=== PATIENT | female | born 1945 | race Caucasian/White ===

== ENCOUNTER 2016-01-16 09:34 | Outpatient (RCR) | payer MEDICARE ==
[~2016-01-16 09:34] MED LIST: ACET325T49 PO; ACHD5005 PO; ACID1TAB PO; ACYC400T21 PO; ACYC800T PO; ADV1DS1 IH; ALB0.5V INH; ALBU0.632 IH; AMIT100T2; AMIT100T2 PO; AMIT150T PO; AMT50T; ASP325TEC PO; ASP81CT PO; ASPI-892 PO; ASPI325T4 PO; AZIT250T PO; AZIT250T5 PO; BMT1T; BSP10T PO; BSP5T PO; BUDE10.22 IH; BUSP5TAB59 PO; CARV3.12 PO; CARV3.122 PO; CEFU250T11 PO; CEPH500C PO; CETI10TA17; CETI10TA17 PO; CHOL10003 PO; CHOL4PAC PO; CIPR-225 PO; CIPR-226 PO; CIPR500T4 PO; CIPR500T78 PO; CPR250T PO; CPR500T PO; CTRZ10T; CYCL10TA9 PO; D50KC PO; DEMEROL; DEXL60CA PO; DIAZ10TA PO; DIAZ10TA3 PO; DIAZ5TAB3 PO; DIAZ5TAB49; DNPZ10T PO; DONE10TA41 PO; DONE10TA48 PO; ENLP5T PO; FESO8TAB PO; FLC100T1 PO; FLUT1DIS27 INH; FLUT1DIS28 IH; GAPAPENTIN; GUAI600T43 PO; HYDR-91 PO; HYDR1TAB PO; INDERAL; IPRA3AMP INH; KCL20TCR; KCL20TCR PO; L.AC1CAP6 PO; LEVO500T69 PO; LEVO500T80 PO; LEVO750T39 PO; LYRICA; MACRODANTIN PO; MAGN400T6 PO; MECL25TA56 PO; MEPERIDINE; METH4TAB PO; METH4TAB10 PO; METO-354 PO; METR500T PO; MILN50TA PO; MTF500T; NAPR-243 PO; NEBU1KIT3 MC; NF-ZONI100; NITR-65 PO; NITR100C PO; NYST1000 PO; OMEP40CA36 PO; ONDA4TAB11 PO; ONDA8TAB9 PO; ORPH100T PO; OXYC1TAB12; OXYC1TAB19; OXYC1TAB95 PO; OXYCODONE; PANT40SU PO; PHEN100T17 PO; PHEN200T27 PO; PRAV10TA23 PO; PRD20T PO; PRED20TA PO; PREG150C PO; PREG50C; PREG50CA2 PO; PREG75CA PO; PRM25T PO; PROMETHAZINE; PROP120C3 PO; PROP40TA5 PO; PROP60TA16; PROP60TA16 PO; ROPI1TAB; ROPI1TAB PO; ROPI2TAB4 PO; RPN.25T; SCOP1PAT TD; SCR1T1 PO; SITA100T12 PO; SRTR100T; SUCR1TAB23 PO; SUCR1TAB36 PO; TRAM50TA2 PO; TRIM100T7 PO; VIT1TABL5 PO; Z-pak PO; ZONEGRAM; ZONI100C11; [UNRECOGNIZED DRUG - OTHER]
--- OUTSIDE RECORDS SUMMARY | 2016-01-16 09:39 | XMS REPORT | Continuity of Care Document ---
Author Author [facility] Organization [facility] Address Unknown Phone Unavailable Care Team Providers Care Upholstery Instructor Name Role Phone NANNETTE REID DO PCP Insurance Providers Payer Name Policy Number Subscriber Name Relationship [employer] Gold Choice [id number] Diana Gregory 18 Self / Same As Patient [facility] [id number] Diana Gregory 18 Self / Same As Patient Advance Directives Directive Response Recorded Date/Time Advance Directives Yes 02/02/14 7:40pm Health Care Power of Library Sales Consultant No 02/02/14 7:40pm Organ Donor Yes 02/02/14 7:40pm Resuscitation Status Full Code 02/02/14 7:40pm Chief Complaint and Reason for Visit Chief Complaint CHEST PAIN Reason for Visit Chest pain Problems Medical Problems Problem Onset Date Status Bronchitis Unknown Active Bronchitis Unknown Active Urinary tract infection Unknown Active Chest pain Unknown Active Medications Medication Dose Route Sig Days/Qty Instructions Order Date Discontinued Date Status [Inderal] 10/28/06 02/09/09 Discontinued [Lyrica] 10/28/06 12/30/07 Discontinued Cetirizine HCl 10/28/06 12/30/07 Discontinued Sertraline HCl 10/28/06 12/30/07 Discontinued Bumetanide 10/28/06 12/30/07 Discontinued Potassium Chloride 10/28/06 12/30/07 Discontinued Amitriptyline HCl 10/28/06 12/30/07 Discontinued [Zonegram] 10/28/06 12/30/07 Discontinued [Oxycodone] 10/28/06 12/30/07 Discontinued [Demerol/Phenergan] 10/28/06 12/30/07 Discontinued Metformin HCl 12/30/07 02/09/09 Discontinued Ergocalciferol 1 Tab PO WEEKLY 12/30/07 09/27/10 Discontinued Ropinirole HCl 12/30/07 02/09/09 Discontinued Diazepam 12/30/07 05/02/09 Discontinued Oxycodone/Acetaminophen 12/30/07 02/09/09 Discontinued [Demerol 100MG] 12/30/07 03/07/10 Discontinued Amitriptyline HCl 12/30/07 02/09/09 Discontinued Zonisamide 12/30/07 02/09/09 Discontinued Sertraline HCl 12/30/07 02/09/09 Discontinued Pregabalin 12/30/07 02/09/09 Discontinued Cetirizine HCl (Zyrtec) 08/14/08 02/09/09 Discontinued Propranolol HCl 60 Mg PO TWICE A DAY 08/14/08 03/24/10 Discontinued Propranolol HCl 08/14/08 02/09/09 Discontinued Zonisamide 08/14/08 05/02/09 Discontinued Amitriptyline HCl 08/14/08 09/16/09 Discontinued Ropinirole HCl 08/14/08 02/09/09 Discontinued Oxycodone Hcl/Acetaminophen 08/14/08 05/02/09 Discontinued Sertraline HCl 08/14/08 02/09/09 Discontinued Meclizine HCl 2 Each PO FOUR TIMES DAILY 30 Qty FOR DIZZINESS 08/14/08 02/09/09 Discontinued Scopolamine HCl 1 Patch TD Q 72 HOURS 3 Qty 08/14/08 02/09/09 Discontinued Oxycodone/Acetaminophen 1 Tab PO FOUR TIMES DAILY PRN 02/09/0904/08 Discontinued Milnacipran Hcl 50 Mg PO TWICE A DAY 05/02/09 03/07/10 Discontinued Ropinirole HCl 2 Mg PO BEDTIME 05/02/09 02/03/14 Discontinued Amitriptyline HCl 150 Mg PO BEDTIME 05/02/09 03/07/10 Discontinued Promethazine HCl 25 Mg PO EVERY 4HRS PRN 05/02/09 09/27/10 Discontinued Cetirizine HCl (Zyrtec) 06/15/09 09/16/09 Discontinued Ciprofloxacin 1 Tab PO TWICE A DAY 7 Days 09/17/09 03/07/10 Discontinued Naproxen 1 Each PO TID PRN 30 Qty FOR PAIN 09/25/09 03/07/10 Discontinued Orphenadrine Citrate 100 Mg PO TWICE A DAY 30 Qty 09/25/09 03/07/10 Discontinued Pantoprazole Sodium 40 Mg PO DAILY 03/24/10 03/24/10 Discontinued Carvedilol 3.125 Mg PO GIVE EVERY 12 HRS ON SCHEDULE 03/24/10 Discontinued Ciprofloxacin 500 Mg PO Q12 8TABS, (4 MORE DAYS) 03/24/10 07/03/10 Discontinued Enalapril Maleate 5 Mg PO TWICE A DAY 03/24/10 06/17/11 Discontinued Magnesium Oxide 400 Mg PO TWICE A DAY 03/24/10 04/06/12 Discontinued Pantoprazole Sodium 40 Mg PO DAILY 03/24/10 07/03/10 Discontinued Amitriptyline HCl (Elavil) 50 Mg PO BEDTIME 07/03/10 04/06/12 Discontinued Propranolol HCl 60 Mg PO TWICE A DAY 07/03/10 02/03/14 Discontinued Fesoterodine Fumarate 1 Tab PO DAILY 07/03/10 09/27/10 Discontinued Cholecalciferol 1,000 Unit PO DAILY 09/27/10 06/17/11 Discontinued Donepezil Hcl 10 Mg PO BEDTIME 09/27/10 10/06/10 Discontinued Acetaminophen/Hydrocodone Bitart 1 - 2 Each PO Q4HR PRN 40 Qty 10/06/10 Discontinued Carvedilol (Coreg) 1 Each PO TWICE A DAY 10/06/10 10/06/10 Discontinued Omeprazole 40 Mg PO TWICE A DAY 10/06/10 04/06/12 Discontinued Aspirin 81 Mg PO Every 48 Hours 10/06/10 12/14/13 Discontinued Donepezil Hcl 10 Mg PO BEDTIME 10/06/10 12/05/13 Discontinued Salmeterol Xinafoate/Fluticasone 1 Puff INH TWICE A DAY 10/25/1005/14 Discontinued Buspirone HCl 10 Mg PO THREE TIMES A DAY 10/25/10 07/05/12 Discontinued Trimethoprim 100 Mg PO BEDTIME 10/25/10 04/08/12 Discontinued Ciprofloxacin 1 Tab PO TWICE A DAY 3 Days 10/25/10 11/25/10 Discontinued Pravastatin Sodium 10 Mg PO BEDTIME 01/05/11 06/17/11 Discontinued Nitrofurantoin Macrocrystals 1 Each PO TWICE A DAY 20 Qty 01/05/11 Discontinued Metronidazole 1 Each PO THREE TIMES A DAY 01/14/11 03/09/11 Discontinued Acyclovir 400 Mg PO THREE TIMES A DAY 2 Days 02/21/11 03/03/11 Discontinued Fluconazole 100 Mg PO DAILY 5 Days 02/21/11 03/03/11 Discontinued Sucralfate 1 Gm PO BEFORE MEALS 02/21/11 06/17/11 Discontinued Potassium Chloride 20 Meq PO DAILY 02/21/11 06/17/11 Discontinued Acidophilus 2 Tab.chew PO TWICE A DAY 02/21/11 06/17/11 Discontinued Metoclopramide HCl 1 Each PO BEFORE MEALS AND AT BEDTIME 02/21/11 Discontinued Dexlansoprazole 60 Mg PO Q24 HR 02/21/11 06/17/11 Discontinued Ondansetron 4 Mg PO EVERY 6 HOURS PRN 10 Qty 03/03/11 03/09/11 Discontinued Nitrofurantoin Macrocrystal 100 Mg PO TWICE A DAY 7 Days 03/03/1108/13 Discontinued [Macrodantin 100MG] 1 PO TWICE A DAY 7 Days 03/14/11 06/17/11 Discontinued Acetaminophen/Hydrocodone Bitart 1 - 2 Ea PO Q4HR PRN 20 Qty NEEDED FOR PAIN 03/14/11 06/17/11 Discontinued [Dohepezl ] 05/21/11 06/17/11 Discontinued [Gapapentin ] 05/21/11 06/17/11 Discontinued Ciprofloxacin HCl 1 Tab PO TWICE A DAY 14 Qty 05/21/11 06/17/11 Discontinued Ciprofloxacin HCl 250 Mg PO TWICE A DAY 06/19/11 11/07/11 Discontinued Metronidazole 500 Mg PO THREE TIMES A DAY 06/19/11 11/07/11 Discontinued Ciprofloxacin 1 Tab PO TWICE A DAY 5 Days 08/20/11 11/07/11 Discontinued Budesonide/Formoterol Fumarate 2 Puff IH TWICE A DAY 12/11/11 Discontinued Promethazine HCl 1 Tab PO FOUR TIMES DAILY PRN 20 Qty 12/23/11 Discontinued Promethazine HCl 25 Mg PO FOUR TIMES DAILY PRN 04/06/12 07/05/12 Discontinued Acetaminophen/Hydrocodone Bitart 1 Each PO FOUR TIMES DAILY PRN 04/0807/05/12 Discontinued Buspirone HCl 5 Mg PO THREE TIMES A DAY 90 Qty 07/05/12 02/03/14 Discontinued Diazepam (Valium) 1 Each PO THREE TIMES A DAY 07/05/12 12/05/13 Discontinued Omeprazole 40 Mg PO 0900, 1700 07/05/12 Active Albuterol Sulfate 0.83 Mg IH EVERY 4HRS PRN 07/05/12 02/03/14 Discontinued Cholestyramine/Aspartame 4 G PO DAILY 07/05/12 12/05/13 Discontinued Levofloxacin 1 Each PO DAILY 7 Qty 11/05/12 12/05/13 Discontinued Phenazopyridine HCl 1 Each PO TID PRN 10 Qty 11/05/12 12/05/13 Discontinued Ondansetron HCl 8 Mg PO EVERY 6 HOURS PRN 10 Qty 11/05/12 12/05/13 Discontinued Salmeterol Xinafoate/Fluticasone Unknown Dose IH DAILY 12/05/13 Discontinued Vit B12/Lm-Folate Ca/Vit B6/B2 1 Tab PO 12/05/13 12/30/13 Discontinued Cetirizine HCl (Zyrtec) 10 Mg PO TWICE A DAY PRN ALLERGIES 12/05/13 Active Levofloxacin 1 Each PO DAILY 5 Qty 12/05/13 12/14/13 Discontinued Pregabalin 75 Mg PO DAILY @ 1700 12/30/13 Active Nitrofurantoin Macrocrystals 1 Each PO TWICE A DAY 30 Qty 12/31/1307/15 Discontinued Phenazopyridine HCl 1 Each PO THREE TIMES A DAY PRN BLADDER DISCOMFORT 15 Qty 12/31/13 02/03/14 Discontinued Ciprofloxacin 500 Mg PO TWICE A DAY 01/06/14 02/03/14 Discontinued Buspirone HCl 5 Mg PO 0900, 1730, 0000 02/03/14 Active Albuterol 2.5 Mg INH EVERY 4HRS PRN SHORTNESS OF BREATH 02/03/14 Active Ropinirole Hcl 2 Mg PO DAILY @ 1200 02/03/14 Active Propranolol HCl 40 Mg PO 0900, 1700 02/03/14 Active Aspirin 81 Mg PO DAILY 02/03/14 Active Cefuroxime Axetil (Ceftin) 250 Mg PO TWICE A DAY 14 Qty 02/03/14 Active Social History Social History Problem Response Recorded Date/Time Alcohol Use Denies Use 02/02/2014 7:40pm Recreational Drug Use No 02/02/2014 7:40pm Recent Foreign Travel No 12/05/2013 6:09pm Recent Infectious Disease Exposure No 12/05/2013 6:09pm Hospitalization with Isolation Denies 12/05/2013 6:09pm Sexually Transmitted Disease No 02/02/2014 7:40pm Smoking Status Never a Smoker 02/02/2014 7:40pm Do you dip or chew tobacco? No 02/02/2014 7:40pm Query Response Start Date Stop Date Smoking Status Never a Smoker Hospital Discharge Instructions Patient Instructions Physician Instructions New, Converted or Re-Newed RX: Call to Patients Pharmacy Plan of Care/Instructions/FU: Fwup in 1week Activity as Tolerated: Yes Discharge Diet: Low Sodium Diet Plan of Care Discharge Date 02/03/14 8:50pm Disposition 01 HOME, SELF-CARE Instructions/Education Provided Urinary Tract Infection in Women (DC) Gastroesophageal Reflux Disease (GEN) Forms Provided PDI Medical Prescriptions See Medications Section Referrals (Unspecified) Reason(s) for Referral: follow up with dr. shah on january 31 at 3:30 ULI CERDA MD FACP FACC CCDS (Unspecified) 1 Week Address: [address] [place] [address] [address] [place] [address] Reason(s) for Referral: Please call the office to make a follow up appointment next week with Dr. Cerda. If you have any questions/concerns call the office. NANNETTE REID DO (Unspecified) 1 Week Address: [address] [place] [address] Reason(s) for Referral: Please call the office to make a follow up appointment with Dr. Reid for 1 week. Call the office if you have questions/concerns. Functional Status Query Response Date Recorded Patient Orientation Person Place Time February 03, 2014 10:35pm Comprehension Ability Understands Concepts February 02, 2014 7:40pm Allergies, Adverse Reactions, Alerts Allergen Type Severity Reaction Status Last Updated Penicillins ([id number]) Allergy Unknown Active 10/28/06 Sulfa (Sulfonamide Antibiotics) ([id number]) Allergy Unknown Active 27/09 Aspirin Adverse Reaction Mild ASPIRIN SENSITIVE Active 08/14/08 sumatriptan Adverse Reaction Mild PALPITATIONS Active 08/14/08 Hydromorphone Allergy Mild STRONG RASH Active 10/28/06 Immunizations Name Given Type Date of Pneumonia Vaccine 12/03/11 Historical Date of Influenza Vaccine 01/02/14 Historical influenza, split (incl. purified surface antigen) 01/07/14 Administered Vital Signs Acute Vital Signs Vital Response Date/Time Temperature (Fahrenheit) 97.9 degrees F (97.6 - 99.5) Temperature (Calculated Celsius) 36.53250 degrees C (36.4 - 37.5) Temperature Source Temporal Pulse Rate (adult) 68 bpm (60 - 90) Respiratory Rate 20 bpm (12 - 24) O2 Sat by Pulse Oximetry 97 % (88 - 100) Blood Pressure 142/81 mm Hg Pain Pain Intensity 0 Height (Feet) 5 feet Height (Inches) 65.00 inches Height (Calculated Centimeters) 165.164070 cm Weight (Pounds) 205 pounds Weight (Ounces) 9.0 oz Weight (Calculated Grams) 19419.437 gm Weight (Calculated Kilograms) 92.378601 kilograms Calculated BMI 34.28 Results Laboratory Results Test Name Result Units Flags Reference Collection Date/Time Result Date/ Time Comments White Blood Count 8.0 10^3/uL 4.3-11.0 02/03/2014 5:18am 02/03/2014 5: 30am Red Blood Count 4.41 10^6/uL 4.35-5.85 02/03/2014 5:18am 02/03/2014 5: 30am Hemoglobin 13.3 G/DL 11.5-16.0 02/03/2014 5:18am 02/03/2014 5:30am Hematocrit 40 % 35-52 02/03/2014 5:18am 02/03/2014 5:30am Mean Corpuscular Volume 91 FL 80-99 02/03/2014 5:1802/03/2014 5: 30am Mean Corpuscular Hemoglobin 30 PG 25-34 02/03/2014 5:1802/03/2014 5: 30am Mean Corpuscular Hemoglobin Concent 33 G/DL 32-36 02/03/2014 5:1805/2013 5:30am Red Cell Distribution Width 12.9 % 10.0-14.5 02/03/2014 5:182013 5:30am Platelet Count 222 10^3/uL 130-400 02/03/2014 5:1802/03/2014 5:30am Mean Platelet Volume 10.2 FL 7.4-10.4 02/03/2014 5:1802/03/2014 5: 30am Neutrophils (%) (Auto) 58 % 42-75 02/03/2014 5:02/03/2014 5:30am Lymphocytes (%) (Auto) 31 % 12-44 02/03/2014 5:02/03/2014 5:30am Monocytes (%) (Auto) 8 % 0-12 02/03/2014 5:1802/03/2014 5:30am Eosinophils (%) (Auto) 3 % 0-10 02/03/2014 5:02/03/2014 5:30am Basophils (%) (Auto) 1 % 0-10 02/03/2014 5:02/03/2014 5:30am Neutrophils # (Auto) 4.7 X 10^3 1.8-7.8 02/03/2014 5:02/03/2014 5: 30am Lymphocytes # (Auto) 2.5 X 10^3 1.0-4.0 02/03/2014 5:1802/03/2014 5: 30am Monocytes # (Auto) 0.6 X 10^3 0.0-1.0 02/03/2014 5:02/03/2014 5: 30am Eosinophils # (Auto) 0.2 10^3/uL 0.0-0.3 02/03/2014 5:1802/03/2014 5 :30am Basophils # (Auto) 0.1 10^3/uL 0.0-0.1 02/03/2014 5:1802/03/2014 5: 30am Prothrombin Time 11.4 SEC L 12.2-14.7 02/02/2014 6:30pm 02/02/2014 6: 55pm INR Comment 0.8 0.8-1.4 02/02/2014 6:30pm 02/02/2014 6:55pm INTERPRETIVE DATA SUGGESTED THERAPEUTIC RANGE FOR INR'S: VENOUS THROMBOSIS, PULMONARY EMBOLISM, OR PREVENTION OF SYSTEMIC EMBOLISM (EG. IN ATRIAL FIBRILLATION): 2.0 - 3.0 MECHANICAL PROSTHETIC HEART VALVES: 2.5 - 3.5* *NOTE: INR'S UP TO 4.5 MAY BE NECESSARY IN SELECTED GROUPS OF HIGH RISK PATIENTS. [employer] [place] [employer] OF CHEST PHYSICIANS CONSENSUS CONFERENCE ON ANTITHROMBOTIC THERAPY (2000). Activated Partial Thromboplast Time 20 SEC L 24-35 02/02/2014 6:30pm 04/2013 6:55pm Urine Color YELLOW 02/03/2014 5:57pm 02/03/2014 6:26pm Urine Clarity SLIGHTLY CLOUDY 02/03/2014 5:57pm 02/03/2014 6:26pm Urine pH 6 5-9 02/03/2014 5:57pm 02/03/2014 6:26pm Urine Specific [place] 1.015 * 1.016-1.022 02/03/2014 5:57pm 2013 6:26pm Urine Protein NEGATIVE NEGATIVE 02/03/2014 5:57pm 02/03/2014 6:26pm Urine Glucose (UA) NEGATIVE NEGATIVE 02/03/2014 5:57pm 02/03/2014 6: 26pm Urine RBC (Auto) NEGATIVE NEGATIVE 02/03/2014 5:57pm 02/03/2014 6: 26pm Urine Ketones NEGATIVE NEGATIVE 02/03/2014 5:57pm 02/03/2014 6:26pm Urine Nitrite NEGATIVE NEGATIVE 02/03/2014 5:57pm 02/03/2014 6:26pm Urine Bilirubin NEGATIVE NEGATIVE 02/03/2014 5:57pm 02/03/2014 6: 26pm Urine Urobilinogen NORMAL MG/DL NORMAL 02/03/2014 5:57pm 02/03/2014 6: 26pm Urine Leukocyte Esterase 3+ * NEGATIVE 02/03/2014 5:57pm 02/03/2014 6: 26pm Urine RBC NONE /HPF 02/03/2014 5:57pm 02/03/2014 6:26pm Urine WBC 25-50 /HPF * 02/03/2014 5:57pm 02/03/2014 6:26pm Urine Bacteria FEW /HPF * 02/03/2014 5:57pm 02/03/2014 6:26pm Urine Squamous Epithelial Cells 10-25 /HPF * 02/03/2014 5:57pm 2013 6:26pm Urine Crystals NONE /LPF 02/03/2014 5:57pm 02/03/2014 6:26pm Urine Casts NONE /LPF 02/03/2014 5:57pm 02/03/2014 6:26pm Urine Mucus NEGATIVE /LPF 02/03/2014 5:57pm 02/03/2014 6:26pm Urine Culture Indicated YES 02/03/2014 5:57pm 02/03/2014 6:26pm Sodium Level 140 MMOL/L 135-145 02/03/2014 5:18am 02/03/2014 6:16am Potassium Level 3.8 MMOL/L 3.6-5.0 02/03/2014 5:18am 02/03/2014 6:16am Chloride Level 106 MMOL/L 98-107 02/03/2014 5:18am 02/03/2014 6:16am Carbon Dioxide Level 25 MMOL/L 21-32 02/03/2014 5:18am 02/03/2014 6: 16am Blood Urea Nitrogen 18 MG/DL 7-18 02/03/2014 5:18am 02/03/2014 6:16am Creatinine 0.77 MG/DL 0.60-1.30 02/03/2014 5:18am 02/03/2014 6:16am BUN/Creatinine Ratio 23 02/03/2014 5:18am 02/03/2014 6:16am Estimat Glomerular Filtration Rate > 60 02/03/2014 5:18am 2013 6:16am GFR INTERPRETIVE DATA UNITS FOR ESTIMATED GFR (eGFR): mL/min/1.73 M2 REFERENCE RANGE FOR ESTIMATED GFR (eGFR) eGFR NORMAL eGFR >60 MODERATELY DECREASED eGFR 30-59 SEVERLY DECREASED eGFR 15-29 KIDNEY FAILURE <15 (OR DIALYSIS) Glucose Level 129 MG/DL H 70-105 02/03/2014 5:18am 02/03/2014 6:16am Calcium Level 8.9 MG/DL 8.5-10.1 02/03/2014 5:18am 02/03/2014 6:16am Magnesium Level 2.1 MG/DL 1.8-2.4 02/02/2014 6:30pm 02/02/2014 7:00pm Total Bilirubin 0.5 MG/DL 0.1-1.0 02/03/2014 5:18am 02/03/2014 6:16am Alkaline Phosphatase 83 U/L 40-136 02/03/2014 5:18am 02/03/2014 6:16am Aspartate Amino Transf (AST/SGOT) 15 U/L 5-34 02/03/2014 5:18am 2013 6:16am Alanine Aminotransferase (ALT/SGPT) 21 U/L 0-55 02/03/2014 5:18am 02/03 6:16am Troponin I < 0.30 NG/ML <0.30 02/02/2014 6:30pm 02/02/2014 7:08pm Troponin I < 0.30 NG/ML <0.30 02/03/2014 12:33am 02/03/2014 1:11am Myoglobin 39.7 NG/ML 10.0-92.0 02/02/2014 6:30pm 02/02/2014 7:08pm Total Protein 5.6 G/DL L 6.4-8.2 02/03/2014 5:18am 02/03/2014 6:16am Albumin 3.3 G/DL 3.2-4.5 02/03/2014 5:18am 02/03/2014 6:16am Triglycerides Level 169 MG/DL H <150 02/03/2014 5:18am 02/03/2014 5:56am Cholesterol Level 165 MG/DL < 200 02/03/2014 5:18am 02/03/2014 5:56am HDL Cholesterol 35 MG/DL L 40-60 02/03/2014 5:18am 02/03/2014 5:56am LDL Cholesterol Direct 107 MG/DL 1-129 02/03/2014 5:18am 02/03/2014 5: 56am VLDL Cholesterol 34 MG/DL 5-40 02/03/2014 5:18am 02/03/2014 5:56am Procedures Procedure Status Date Provider(s) REPAIR BLADDER DEFECT completed 01/06/14 JUWAN SHAH MD Tracing only of electrocardiogram completed 02/02/14 CHERRIE CHURCH MD Tracing only of electrocardiogram completed 02/02/14 NANNETTE REID DO Tracing only of electrocardiogram completed 02/02/14 NANNETTE REID DO Encounters Encounter Location Date/Time Discharged Inpatient Via [facility] 02/02/14 7:46pm Departed Surgical Day Care Via [facility] 01/06/14 6:09am Recent Diagnosis Chest pain
[2016-01-28] MEDS ORDERED: PHEN-640 PO (19:47)
[2016-01-28] MEDS ORDERED: CIPR-225 PO (19:47)
[2016-01-28] MEDS ORDERED: ONDA4TAB8 PO (19:48)
[2016-03-21] MEDS ORDERED: GABA-488 PO ×2 (17:55)
[2016-03-21] MEDS ORDERED: PIOG30TA26 PO (17:55)
[2016-03-21] MEDS ORDERED: GLIM2TAB PO (17:55)
[2016-03-22] MEDS ORDERED: PRAM1TAB5 PO (08:04)
[2016-03-22] MEDS ORDERED: CYCL10TA9 PO (08:04)
[2016-03-22] MEDS ORDERED: DIPH25TA29 PO (08:04)
[2016-03-25] MEDS ORDERED: IPRA3AMP INH (11:49)
[2016-03-25] MEDS ORDERED: TOLTA4 PO (11:49)
[2016-03-25] MEDS ORDERED: CEFD300C3 PO (11:49)
[2016-04-13] MEDS ORDERED: IPRA3AMP NEB (10:30)
[2016-04-13] MEDS ORDERED: TOLT4CAP13 PO (10:30)
[2016-04-23] MEDS ORDERED: LORA0.5T PO (14:47)
[2016-04-23] MEDS ORDERED: FLUT12AE4 IH (14:47)
[2016-04-23] MEDS ORDERED: BUSP5TAB59 PO (14:47)
[2016-04-23] MEDS ORDERED: PRD20T PO (14:47)
[2016-04-23] MEDS ORDERED: METR500T PO (14:48)
[2016-04-25] MEDS ORDERED: KETO10TA PO (08:47)
[2016-05-16] MEDS ORDERED: HC A30CR RC (13:19)
[2016-05-16] MEDS ORDERED: PANT40TA2 PO (13:19)
== END 2016-04-15 | disposition home or self-care (01) ==
LOC: PULM 09:34
PROVIDERS: ATTEND Nurse Practitioner Family
DX: R06.00 Dyspnea, unspecified (principal); J98.4 Other disorders of lung; G47.34 Idiopathic sleep related nonobstructive alveolar hypoventilation
CPT/HCPCS: 99211

== ENCOUNTER 2016-03-21 13:52 | Inpatient (IN) | payer MEDICARE ==
[~2016-03-21] VITALS: Ht 162.6 cm; Wt 98.0 kg
[~2016-03-21 13:52] MED LIST changes: +ONDA4TAB8 PO; +PHEN-640 PO
--- OUTSIDE RECORDS SUMMARY | 2016-03-21 14:01 | XMS REPORT | Continuity of Care Document ---
Author Author [facility] Organization [facility] Address Unknown Phone Unavailable Care Team Providers Care Yardmaster Name Role Phone NANNETTE REID DO PCP Insurance Providers Payer Name Policy Number Subscriber Name Relationship [employer] Gold Choice [id number] Diana Gregory 19 Self / Same As Patient [facility] [id number] Diana Gregory 19 Self / Same As Patient Advance Directives Directive Response Recorded Date/Time Advance Directives Yes 02/02/14 7:40pm Health Care Power of District Claims Manager No 02/02/14 7:40pm Organ Donor Yes 02/02/14 [...] FACP FACC CCDS (Unspecified) 1 Week Address: [address] [place] [address] [address] [place] [address] Reason(s) for Referral: Please call the office to make a follow up appointment next week with Dr. Cerda. If you have any questions/concerns call the office. NANNETTE REID DO (Unspecified) 1 Week Address: [address] [place] [address] Reason(s) for Referral: Please call the office to make a follow up appointment with Dr. Reid for 1 week. Call the office if you have questions/concerns. Functional Status Query Response Date Recorded Patient Orientation Person Place Time February 03, 2014 10:35pm Comprehension Ability Understands Concepts February 02, 2014 7:40pm Allergies, Adverse Reactions, Alerts Allergen Type Severity Reaction Status Last Updated Penicillins ([id number]) Allergy Unknown Active 10/28/06 Sulfa (Sulfonamide Antibiotics) ([id number]) Allergy Unknown Active 27/09 Aspirin Adverse Reaction [...] F (97.6 - 99.5) Temperature (Calculated Celsius) 36.37939 degrees C (36.4 - 37.5) Temperature Source Temporal Pulse Rate (adult) 68 bpm (60 - 90) Respiratory Rate 20 bpm (12 - 24) O2 Sat by Pulse Oximetry 97 % (88 - 100) Blood Pressure 142/81 mm Hg Pain Pain Intensity 0 Height (Feet) 5 feet Height (Inches) 65.00 inches Height (Calculated Centimeters) 165.824728 cm Weight (Pounds) 205 pounds Weight (Ounces) 9.0 oz Weight (Calculated Grams) 34465.437 gm Weight (Calculated Kilograms) 92.082440 kilograms Calculated BMI 34.28 Results Laboratory Results [...] SELECTED GROUPS OF HIGH RISK PATIENTS. [employer] [place] [employer] OF CHEST PHYSICIANS CONSENSUS CONFERENCE ON ANTITHROMBOTIC THERAPY (2000). Activated Partial Thromboplast Time 20 SEC L 24-35 02/02/2014 6:30pm 04/2013 6:55pm Urine Color YELLOW 02/03/2014 5:57pm 02/03/2014 6:26pm Urine Clarity SLIGHTLY CLOUDY 02/03/2014 5:57pm 02/03/2014 6:26pm Urine pH 6 5-9 02/03/2014 5:57pm 02/03/2014 6:26pm Urine Specific [place] 1.015 * 1.016-1.022 02/03/2014 5:57pm 2013 6:26pm [...] Encounters Encounter Location Date/Time Discharged Inpatient Via [facility] 02/02/14 7:46pm Departed Surgical Day Care Via [facility] 01/06/14 6:09am Recent Diagnosis Chest pain
--- NOTE | 2016-03-21 14:15 | ED General ---
General Chief Complaint: Respiratory Problems Stated Complaint: SOA/FEVER Nursing Triage Note: INCREASING SOA FOR A COUPLE OF WEEKS ET YESTERDAY WAS RUNNING A TEMP OF 101.7 Nursing Sepsis Screen: No Definite Risk Source of Information: Patient Exam Limitations: No Limitations History of Present Illness Time Seen by Provider: 13:57 Initial Comments Here with report of increasing shortness of breath over the last couple of weeks. Reports running a temperature yesterday that is only minimally responding to Tylenol or ibuprofen. Apparently it is working today she is afebrile on arrival. Denies nausea or vomiting but does have intermittent loose stools. Denies dysuria. Does have chest tightness especially lower. Timing/Duration: 1-2 Days Severity: Moderate Associated Systoms: Cough Fever/ChillsNo Shortness of Air Allergies and Home Medications Allergies Coded Allergies: hydromorphone (Verified Allergy, Mild, STRONG RASH, 10/28/06) Penicillins (Verified Allergy, Unknown, 10/28/06) Sulfa (Sulfonamide Antibiotics) (Verified Allergy, Unknown, 10/28/06) aspirin (Unverified Adverse Reaction, Mild, ASPIRIN SENSITIVE, 08/14/08) sumatriptan (Unverified Adverse Reaction, Mild, PALPITATIONS, 08/14/08) Home Medications Acetaminophen 325 Mg Tablet 650 MG PO Q6H PRN PRN FEVER (Reported) Buspirone HCl 5 Mg Tablet 5 MG PO TID (Reported) Cetirizine HCl 10 Mg Tablet 10 MG PO BID PRN PRN ALLERGIES (Reported) Ciprofloxacin HCl 500 Mg Tablet #20 500 MG PO BID Prescribed by: PETER ASHLEY on 01/28/161946 Cyclobenzaprine HCl 10 Mg Tablet #10 10 MG PO Q8H PRN PRN SPASMS Prescribed by: CHERRIE CHURCH on 10/22/15 165 Levofloxacin 500 Mg Tablet #7 500 MG PO DAILY Prescribed by: CHERRIE CHURCH on 10/22/15 165 Nitrofurantoin Monohyd/M-Cryst 100 Mg Capsule #14 1 CAP PO BID Prescribed by: BINU LAZO on 10/02/15 0803 Omeprazole 40 Mg Capsule.dr 40 MG PO BID (Reported) Ondansetron 4 Mg Tab.rapdis #10 4 MG PO Q4H Prescribed by: PETER ASHLEY on 01/28/161947 Phenazopyridine HCl 200 Mg Tablet #15 1 TAB PO TID Prescribed by: PETER ASHLEY on 01/28/161946 Prednisone 20 Mg Tab #8 40 MG PO DAILY Prescribed by: CHERRIE CHURCH on 10/22/15 1651 Propranolol HCl 40 Mg Tablet 40 MG PO DAILY (Reported) Ropinirole HCl 2 Mg Tablet 2 MG PO BID (Reported) Sitagliptin Phosphate 100 Mg Tablet 100 MG PO DAILY (Reported) Constitutional: see HPINo chills, fever EENTM: nose congestion see HPINo mouth pain, No throat pain Respiratory: see HPI coughNo hemoptysis, short of breath wheezing Cardiovascular: see HPINo edema, No palpitations Gastrointestinal: see HPI diarrheaNo nausea, No vomiting Genitourinary: see HPINo dysuria, No pain Musculoskeletal: back pain (chronic)No muscle pain All Other Systems Reviewed Negative Unless Noted: Yes Past Jdxkjny-Jwtfcu-Xuncyb Hx Patient Social History Alcohol Use: Denies Use Recreational Drug Use: No Smoking Status: Never a Smoker Recent Foreign Travel: No Contact w/Someone Who Travel: No Recent Infectious Disease Expo: No Recent Hopitalizations: No Physical Abuse Screen: No Sexual Abuse: No Immunizations Up To Date Tetanus Booster (TDap): Unknown PED Vaccines UTD: No Date of Pneumonia Vaccine: May 24, 2012 Date of Influenza Vaccine: Jan 24, 2015 Seasonal Allergies Seasonal Allergies: No Surgeries HX Surgeries: Yes Surgeries: Abdominal, Appendectomy, Cardiac, Defibrillator, Gallbladder, Hysterectomy, Oophorectomy, Pacemaker, Tonsillectomy Respiratory Hx Respiratory Disorders: Yes (COPD) Respiratory Disorders: Pneumonia, Chronic Bronchitis, Sleep Apnea, COPD Cardiovascular Hx Cardiac Disorders: Yes (HX CARDIAC ARREST DURING ENT SURGERY, PACER/ICD) Cardiac Disorders: Irregular Heartbeat Neurological Hx Neurological Disorders: Yes (PERIPHERAL NEUROPATHY) Neurological Disorders: Headaches /Migraines, Neuropathy 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 System Hx 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 Disorders: No Sexually Transmitted Disease: No Female 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 Disorders: Denies 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 Genitourinary Hx Genitourinary Disorders: Yes (RIGHT INTRARENAL STONE) Genitourinary Disorders: Kidney Infection, Bladder Infection, Kidney Stones, UTI-Chronic Gastrointestinal Hx Gastrointestinal Disorders: Yes (c-diff in march 2015) Gastrointestinal Disorders: Gastroesophageal Reflux, Diverticulosis, C-Diff, Hiatal Hernia, Ulcer, Gall Bladder Disease, Irritable Bowel Musculoskeletal Hx Musculoskeletal Disorders: Yes (RESTLESS LEG SYNDROME) Musculoskeletal Disorders: Degenerate Disk Disease, Arthritis, Fibromyalgia Endocrine Hx Endocrine Disorders: Yes Endocrine Disorders: Diabetes, Non-Insulin dep HEENT HX ENT Disorders: Yes HEENT Disorders: Cataract Loss of Vision: Denies Hearing Impairment: Denies Cancer Hx Cancer: No Psychosocial Hx Psychiatric Problems: Yes Behavioral Health Disorders: Anxiety, Depression Integumentary HX Skin/Integumentary Disorder: Yes Skin/Integumentary Disorders: Pruritis Blood Transfusions Hx Blood Disorders: No Adverse Reaction to a Blood Tr: No Reviewed Nursing Assessment Reviewed/Agree w Nursing PMH: Yes Family Medical History Family Medial History: Alzheimer's disease 19 FATHER Cardiovascular disease 19 FATHER 19 MOTHER Completed stroke 19 MOTHER Hypertension 19 FATHER 19 MOTHER Myocardial infarction 19 FATHER 19 MOTHER Physical Exam-Suspected Sepsis Physical Exam Vital Signs Vital Sign - Last 12Hours 03/21/16 03/21/16 13:58 14:24 Temp 96.6 Pulse 76 Resp 18 B/P 147/72 Pulse Ox 95 O2 Delivery Room Air O2 Flow Rate 2 Capillary Refill : Less Than 3 Seconds Blood Pressure Mean: 97 General Appearance: No Apparent Distress WD/WN HEENT: PERRL/EOMI Pharynx Normal Other (mild nasal congestion bilateral) Neck: Non Tender Supple Respiratory: Decreased Breath SoundsNo Respiratory Distress, Wheezing (few scattered wheezes) Cardiovascular: Regular Rate, Rhythm No Murmur Gastrointestinal: Non Tender Soft Back: Normal Inspection No CVA Tenderness No Vertebral Tenderness Extremity: Normal Capillary Refill Non Tender No Calf Tenderness Neurologic/Psychiatric: Alert Oriented x3 Skin: normal color warm/dryNo rash Progress/Results/Core Measures Suspected Sepsis Recent Fever Within 48 Hours: Yes Infection Criteria Present: Suspected New Infection New/Unexplained Altered Menta: No Sepsis Screen: No Definite Risk Sepsis Diagnosis: SIRS Temperature:96.6 Pulse: 76 Respiratory Rate: 18 Laboratory Tests 03/21/16 14:10: White Blood Count 11.3H Blood Pressure 147 /72 Mean: 97 Laboratory Tests 03/21/16 14:10: Creatinine 0.78, Platelet Count 261, Total Bilirubin 0.7 Results/Orders Lab Results Laboratory Tests Test 03/21/16 14:10 03/21/16 14:24 Range/Units Alanine Aminotransferase (ALT/SGPT) 20 0-55 U/L Albumin 3.8 3.2-4.5 G/DL Alkaline Phosphatase 88 40-136 U/L Anion Gap 11 5-14 MMOL/L Aspartate Amino Transf (AST/SGOT) 17 5-34 U/L BUN/Creatinine Ratio 14 Basophils # (Auto) 0.0 0.0-0.1 10^3/uL Basophils (%) (Auto) 0 0-10 % Blood Urea Nitrogen 11 7-18 MG/DL C-Reactive Protein High Sensitivity 6.80 H 0.00-0.50 MG/DL Calcium Level 9.0 8.5-10.1 MG/DL Carbon Dioxide Level 26 21-32 MMOL/L Chloride Level 103 98-107 MMOL/L Creatinine 0.78 0.60-1.30 MG/DL D-Dimer 0.36 0.00-0.49 UG/ML Eosinophils # (Auto) 0.1 0.0-0.3 10^3/uL Eosinophils (%) (Auto) 1 0-10 % Estimat Glomerular Filtration Rate > 60 Glucose Level 122 H 70-105 MG/DL Hematocrit 41 35-52 % Hemoglobin 13.7 11.5-16.0 G/DL Lactic Acid Level 0.9 0.5-2.0 MMOL/L Lymphocytes # (Auto) 2.0 1.0-4.0 X 10^3 Lymphocytes (%) (Auto) 18 12-44 % Mean Corpuscular Hemoglobin 31 25-34 PG Mean Corpuscular Hemoglobin Concent 33 32-36 G/DL Mean Corpuscular Volume 92 80-99 FL Mean Platelet Volume 10.1 7.4-10.4 FL Monocytes # (Auto) 0.9 0.0-1.0 X 10^3 Monocytes (%) (Auto) 8 0-12 % Neutrophils # (Auto) 8.2 H 1.8-7.8 X 10^3 Neutrophils (%) (Auto) 73 42-75 % Platelet Count 261 130-400 10^3/uL Potassium Level 3.5 L 3.6-5.0 MMOL/L Red Blood Count 4.49 4.35-5.85 10^6/uL Red Cell Distribution Width 13.1 10.0-14.5 % Sodium Level 140 135-145 MMOL/L Total Bilirubin 0.7 0.1-1.0 MG/DL Total Protein 6.7 6.4-8.2 G/DL White Blood Count 11.3 H 4.3-11.0 10^3/uL Urine Bacteria MODERATE H /HPF Urine Bilirubin NEGATIVE NEGATIVE Urine Casts NONE /LPF Urine Clarity CLEAR Urine Color YELLOW Urine Crystals NONE /LPF Urine Culture Indicated YES Urine Glucose (UA) NEGATIVE NEGATIVE Urine Ketones NEGATIVE NEGATIVE Urine Leukocyte Esterase 3+ H NEGATIVE Urine Mucus SMALL H /LPF Urine Nitrite NEGATIVE NEGATIVE Urine Protein 1+ H NEGATIVE Urine RBC 0-2 /HPF Urine RBC (Auto) 1+ H NEGATIVE Urine Specific [place] 1.020 1.016-1.022 Urine Squamous Epithelial Cells 10-25 H /HPF Urine Urobilinogen NORMAL NORMAL MG/DL Urine WBC 50-100 H /HPF Urine pH 6 5-9 My Orders Orders-CHERRIE CHURCH MD Cbc With Automated Diff (03/21/16 14:08) Comprehensive Metabolic Panel (03/21/16 14:08) Hs C Reactive Protein (03/21/16 14:08) Fibrin Degradation Products (03/21/16 14:08) Ua Culture If Indicated (03/21/16 14:08) Blood Culture (03/21/16 14:08) Chest Pa/Lat (2 View) (03/21/16 14:08) Saline Lock/Iv-Start (03/21/16 14:08) O2 (03/21/16 14:08) Lactic Acid Analyzer (03/21/16 14:08) Ekg Tracing (03/21/16 14:08) Urine Culture (03/21/16 14:24) Rocephin 1g Iv (03/21/16 15:45) Vital Signs/I&O Vital Sign - Last 12Hours 03/21/16 03/21/16 13:58 14:24 Temp 96.6 Pulse 76 Resp 18 B/P 147/72 Pulse Ox 95 O2 Delivery Room Air Nasal Cannula O2 Flow Rate 2 Capillary Refill : Less Than 3 Seconds Blood Pressure Mean: 97 Progress Note : Progress Note Seen and evaluated. IV, labs, EKG and chest x-ray ordered. UA ordered. Monitor patient. 1530: Case discussed with Dr. Reid. Patient does have pneumonia and urinary tract infection. Typically has UTI with Escherichia coli that is pansensitive. Patient has not had recent hospitalization and this appears to be community-acquired pneumonia. We will initiate pneumonia protocol with Rocephin and azithromycin. This should cover the urinary tract infection as well. Cultures pending. Patient does not feel safe at home. Dr. Reid will admit, inpatient status for these infections. Discussed with patient who agrees with plan. Diagnostic Imaging Diagonstic Imaging: Xray Plain Films/CT/US/NM/MRI: chest Comments PT STATUS: REG ER : 1945 PHYSICIAN: CHERRIE CHURCH MD ADMIT DATE: 03/21/16/ER Draft Date of Exam:03/21/16 CHEST PA/LAT (2 VIEW) CLINICAL INDICATION: Patient with increasing shortness of air for a couple of weeks and fevers. EXAM: Chest x-ray, PA and lateral views. COMPARISON: Chest x-ray dated 05/25/2015. FINDINGS: LUNGS/PLEURA: There is interval development of a small infiltrate in the right lung base. Otherwise, the lungs are clear. There is no pneumothorax. There is no pleural effusion. MEDIASTINUM: Unremarkable. PULMONARY VASCULATURE: Unremarkable. HEART: The heart size is within normal limits. Stable cardiac pacemaker/AICD overlying the left chest with two leads projecting over the heart. BONES/EXTRATHORACIC SOFT TISSUE: There are mildly hypertrophic degenerative osteophytes scattered throughout the thoracic spine. Stable chronic compression fracture deformity with vertebroplasty changes involving a thoracolumbar vertebra. IMPRESSION: 1. Concern for interval right lung base pneumonia. 2. The remainder of this exam shows no significant interval change compared to the prior study of comparison. Dictated on workstation # [id number] Dict: 03/21/16 1508 Trans: 03/21/16 1516 [id number] Interpreted by: GONZALEZ MCINTYRE MD Electronically signed by: Departure Communication Time/Spoke to Admitting Phy: 15:30 Impression Impression: Primary Impression: Right lower lobe pneumonia Qualified Code: J18.1 - Lobar pneumonia, unspecified organism Additional Impression: UTI (urinary tract infection) Qualified Code: N30.00 - Acute cystitis without hematuria Disposition: ADMITTED INPATIENT Condition: Stable Decision to Admit Reason: Admit from ER (General) Decision to Admit/Date: Mar 21, 2016 Time/Decision to Admit Time: 15:30 Departure-Patient Inst. Referrals: NANNETTE REID DO (PCP/Family) Primary Care Physician CHERRIE CHURCH MD Mar 21, 2016 14:15
[2016-03-21 14:27] LABS: BASOPHILS % (AUTO) 0 % (0-10); EOSINOPHILS # (AUTO) 0.1 10^3/uL (0.0-0.3); EOSINOPHILS % (AUTO) 1 % (0-10); LYMPHOCYTES % (AUTO) 18 % (12-44); MEAN CORPUSCULAR HEMOGLOBIN 31 PG (25-34); MEAN CORPUSCULAR HGB CONC 33 G/DL (32-36); MEAN CORPUSCULAR VOLUME 92 FL (80-99); MEAN PLATELET VOLUME 10.1 FL (7.4-10.4); MONOCYTES # (AUTO) 0.9 X 10^3 (0.0-1.0); MONOCYTES % (AUTO) 8 % (0-12); NEUTROPHILS # (AUTO) 8.2 X 10^3 (1.8-7.8); NEUTROPHILS % (AUTO) 73 % (42-75); PLATELET COUNT 261 10^3/uL (130-400); RED BLOOD COUNT 4.49 10^6/uL (4.35-5.85); RED CELL DISTRIBUTION WIDTH 13.1 % (10.0-14.5); WHITE BLOOD COUNT 11.3 10^3/uL (4.3-11.0)
[2016-03-21 14:35] LABS: BILIRUBIN,URINE NEGATIVE (NEGATIVE); KETONES,URINE NEGATIVE (NEGATIVE); LEUKOCYTE ESTERASE ,URINE 3+ (NEGATIVE); NITRITE,URINE NEGATIVE (NEGATIVE); PH,URINE 6 (5-9); PROTEIN,URINE 1+ (NEGATIVE); UROBILINOGEN,URINE NORMAL (NORMAL)
[2016-03-21 14:50] LABS: ALANINE AMINOTRANSFERASE 20 U/L (0-55); ALBUMIN 3.8 G/DL (3.2-4.5); ANION GAP 11 MMOL/L (5-14); ASPARTATE AMINO TRANSFERASE 17 U/L (5-34); BILIRUBIN,TOTAL 0.7 MG/DL (0.1-1.0); BLOOD UREA NITROGEN 11 MG/DL (7-18); BUN/CREATININE RATIO 14; CARBON DIOXIDE 26 MMOL/L (21-32); CHLORIDE 103 MMOL/L (98-107); CREATININE SERUM 0.78 MG/DL (0.60-1.30); GFR ESTIMATED > 60; GLUCOSE 122 MG/DL (70-105); POTASSIUM 3.5 MMOL/L (3.6-5.0); SODIUM 140 MMOL/L (135-145); TOTAL PROTEIN 6.7 G/DL (6.4-8.2)
[2016-03-21 14:52] LABS: WBC,URINE 50-100 /HPF
--- NOTE | 2016-03-21 15:16 | Diagnostic Imaging Report ---
CLINICAL INDICATION: Patient with increasing shortness of air for a couple of weeks and fevers. EXAM: Chest x-ray, PA and lateral views. COMPARISON: Chest x-ray dated 05/25/2015. FINDINGS: LUNGS/PLEURA: There is interval development of a small infiltrate in the right lung base. Otherwise, the lungs are clear. There is no pneumothorax. There is no pleural effusion. MEDIASTINUM: Unremarkable. PULMONARY VASCULATURE: Unremarkable. HEART: The heart size is within normal limits. Stable cardiac pacemaker/AICD overlying the left chest with two leads projecting over the heart. BONES/EXTRATHORACIC SOFT TISSUE: There are mildly hypertrophic degenerative osteophytes scattered throughout the thoracic spine. Stable chronic compression fracture deformity with vertebroplasty changes involving a thoracolumbar vertebra. IMPRESSION: 1. Concern for interval right lung base pneumonia. 2. The remainder of this exam shows no significant interval change compared to the prior study of comparison. Dictated by: Dictated on workstation # [id number]
[2016-03-21] MEDS ORDERED: cefTRIAXone INJECTION 1,000 MG in NORMAL SALINE (BAXTER MINI) 50 ML IV ONE (15:45)
[2016-03-21 16:45] VITALS: BP 127/58
[2016-03-21] MEDS ORDERED: AZITHROMYCIN 500 MG/NS 250 ML IVPB IV NR ×2 (17:15)
[2016-03-21] MEDS ORDERED: ONDANSETRON 4 MG/2 ML (SDV) Z0FRAN IV PRN (17:15)
[2016-03-21] MEDS ORDERED: CATHETER FLUSH 10 ML SYR IV PRN (17:15)
[2016-03-21] MEDS: NS IV 1000 ML 1,000 ML IV SCH (17:32)
[2016-03-21] MEDS ORDERED: GABA-488 PO ×2 (17:55)
[2016-03-21] MEDS ORDERED: GLIM2TAB PO (17:55)
[2016-03-21] MEDS ORDERED: PIOG30TA26 PO (17:55)
[2016-03-21] MEDS ORDERED: ACETAMINOPHEN 325 MG TABLET/CAPLET (TYLENOL) PO PRN (18:45)
[2016-03-21] MEDS ORDERED: RT-ALBUTEROL/IPRATROPIUM 3 ML (DUONEB) VIAL INH NR (18:45)
--- NOTE | 2016-03-21 19:05 | History & Physicial ---
History of Present Illness History of Present Illness Reason for visit/HPI This is a 70 year old female with a known history of COPD who presented to the emergency room with a 2 week history of worsening shortness of air. She reported fever as well but was afebrile in the emergency room. She also reported worsening weakness with headache and bodyaches. She was found to have a urinary tract infection as well as possible early developing infiltrate on CXR. She will be admitted and started on rocephin and zithromax. Date of Admission Mar 21, 2016 at 15:44 I consulted on this patient on 03/21/16 18:55 Attending Physician Belia Reid DO Admitting Physician Belia Reid DO Consult Allergies and Home Medications Allergies Coded Allergies: hydromorphone (Verified Allergy, Mild, STRONG RASH, 10/28/06) Penicillins (Verified Allergy, Unknown, 10/28/06) Sulfa (Sulfonamide Antibiotics) (Verified Allergy, Unknown, 10/28/06) aspirin (Unverified Adverse Reaction, Mild, ASPIRIN SENSITIVE, 08/14/08) sumatriptan (Unverified Adverse Reaction, Mild, PALPITATIONS, 08/14/08) Home Medications Acetaminophen 325 Mg Tablet 650 MG PO Q6H PRN PRN FEVER (Reported) Buspirone HCl 5 Mg Tablet 5 MG PO TID (Reported) Cetirizine HCl 10 Mg Tablet 10 MG PO BID PRN PRN ALLERGIES (Reported) Gabapentin 300 Mg Capsule 300 MG PO DAILY (Reported) Gabapentin 300 Mg Capsule 600 MG PO HS (Reported) Glimepiride 2 Mg Tablet 2 MG PO DAILY (Reported) Omeprazole 40 Mg Capsule.dr 40 MG PO BID (Reported) Pioglitazone HCl 30 Mg Tablet 30 MG PO DAILY (Reported) Propranolol HCl 40 Mg Tablet 40 MG PO BID (Reported) Past Uzcqezq-Lvucoy-Dpqvfm Hx Patient Social History Alcohol Use: Denies Use Recreational Drug Use: No Smoking Status: Never a Smoker Physical Abuse Screen: No Sexual Abuse: No Recent Foreign Travel: No Contact w/other who traveled: No Recent Hopitalizations: No Recent Infectious Disease Expo: No Immunizations Up To Date Tetanus Booster (TDap): Unknown Date of Pneumonia Vaccine: May 24, 2012 Date of Influenza Vaccine: Jan 25, 2016 Seasonal Allergies Seasonal Allergies: No Surgeries HX Surgeries: Yes Surgeries: Abdominal, Appendectomy, Cardiac, Defibrillator, Gallbladder, Hysterectomy, Oophorectomy, Pacemaker, Tonsillectomy Respiratory Hx Respiratory Disorders: Yes (COPD) Cardiovascular Hx Cardiovascular Disorders: Yes (HX CARDIAC ARREST DURING ENT SURGERY, PACER/ ICD) Cardiac Disorders: Irregular Heartbeat Neurological Hx Neurological Disorders: Yes (PERIPHERAL NEUROPATHY) Neurological Disorders: Headaches /Migraines, Neuropathy 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 System Hx 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 Disorders: No Sexually Transmitted Disease: No Female 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 Disorders: Denies Genitourinary Hx Genitourinary Disorders: Yes (RIGHT INTRARENAL STONE) Genitourinary Disorders: Kidney Infection, Bladder Infection, Kidney Stones, UTI-Chronic Gastrointestinal Hx Gastrointestinal Disorders: Yes (c-diff in march 2015) Gastrointestinal Disorders: Gastroesophageal Reflux, Diverticulosis, C-Diff, Hiatal Hernia, Ulcer, Gall Bladder Disease, Irritable Bowel Musculoskeletal Hx Musculoskeletal Disorders: Yes (RESTLESS LEG SYNDROME) Musculoskeletal Disorders: Degenerate Disk Disease, Arthritis, Fibromyalgia Endocrine Hx Endocrine Disorders: Yes Endocrine Disorders: Diabetes, Non-Insulin dep HEENT HX ENT Disorders: Yes HEENT Disorders: Cataract Loss of Vision: Denies Hearing Impairment: Denies Cancer Hx Cancer: No Psychosocial Hx Psychiatric Problems: Yes Behavioral Health Disorders: Anxiety, Depression Integumentary HX Skin/Integumentary Disorder: Yes Skin/Integumentary Disorders: Pruritis Blood Transfusions Hx Blood Disorders: No Adverse Reaction to a Blood Tr: No Reviewed Nursing Assessment Reviewed/Agree w Nursing PMH: Yes Family Medical History Family Hx: Alzheimer's disease 19 FATHER Cardiovascular disease 19 FATHER 19 MOTHER Completed stroke 19 MOTHER Hypertension 19 FATHER 19 MOTHER Myocardial infarction 19 FATHER 19 MOTHER No Family History of: Diabetes mellitus Constitutional: fever weakness EENTM: nose congestion Respiratory: cough dyspnea on exertion short of breath stridor wheezing Cardiovascular: chest pain Gastrointestinal: diarrhea dysphagia (chokes easily) heartburn nausea Genitourinary: dysuria frequency Musculoskeletal: back pain joint pain muscle weakness Skin: No no symptoms reported, No see HPI, No change in color, No change in hair/nails, No dryness, No hx of skin cancer, No lesions, No lumps, No pruritus , No rash, No other Psychiatric/Neurological: Depressed Headache Weakness Physical Exam Vital Signs Vital Sign - Last 12Hours 03/21/16 03/21/16 13:58 14:24 Temp 96.6 Pulse 76 Resp 18 B/P 147/72 Pulse Ox 95 O2 Delivery Room Air O2 Flow Rate 2 Capillary Refill : Less Than 3 Seconds General Appearance: No Apparent Distress HEENT: Pharynx Normal Neck: Supple Respiratory: Lungs Clear Decreased Breath Sounds Cardiovascular: Regular Rate, Rhythm Systolic Murmur Gallop/S3 Gastrointestinal: Normal Bowel Sounds Soft Tenderness (generalized) Rectal: Deferred Back: No CVA Tenderness Extremity: Non Tender No Calf Tenderness No Pedal Edema Neurologic/Psychiatric: Alert Oriented x3 Skin: Normal Color Warm/Dry Comments Laboratory Tests 03/21/16 14:10: Alanine Aminotransferase (ALT/SGPT) 20, Albumin 3.8, Alkaline Phosphatase 88, Anion Gap 11, Aspartate Amino Transf (AST/SGOT) 17, BUN/Creatinine Ratio 14, Basophils # (Auto) 0.0, Basophils (%) (Auto) 0, Blood Urea Nitrogen 11, C- Reactive Protein High Sensitivity 6.80H, Calcium Level 9.0, Carbon Dioxide Level 26, Chloride Level 103, Creatinine 0.78, D-Dimer 0.36, Eosinophils # (Auto ) 0.1, Eosinophils (%) (Auto) 1, Estimat Glomerular Filtration Rate > 60, Glucose Level 122H, Hematocrit 41, Hemoglobin 13.7, Lactic Acid Level 0.9, Lymphocytes # (Auto) 2.0, Lymphocytes (%) (Auto) 18, Mean Corpuscular Hemoglobin 31, Mean Corpuscular Hemoglobin Concent 33, Mean Corpuscular Volume 92, Mean Platelet Volume 10.1, Monocytes # (Auto) 0.9, Monocytes (%) (Auto) 8, Neutrophils # (Auto) 8.2H, Neutrophils (%) (Auto) 73, Platelet Count 261, Potassium Level 3.5L, Red Blood Count 4.49, Red Cell Distribution Width 13.1, Sodium Level 140, Total Bilirubin 0.7, Total Protein 6.7, White Blood Count 11.3H 03/21/16 14:24: Urine Bacteria MODERATEH, Urine Bilirubin NEGATIVE, Urine Casts NONE, Urine Clarity CLEAR, Urine Color YELLOW, Urine Crystals NONE, Urine Culture Indicated YES, Urine Glucose (UA) NEGATIVE, Urine Ketones NEGATIVE, Urine Leukocyte Esterase 3+H, Urine Mucus SMALLH, Urine Nitrite NEGATIVE, Urine Protein 1+H, Urine RBC 0-2, Urine RBC (Auto) 1+H, Urine Specific [place] 1.020, Urine Squamous Epithelial Cells 10-25H, Urine Urobilinogen NORMAL, Urine WBC 50-100H, Urine pH 6 Assessment/Plan Assessment and Plan 1. Acute Urinary Tract Infection--cover with rocephin and culture urine, consult Dr. Ortiz due to recurrent UTIs 2. Developing Right Lower Lobe Pneumonia--cover with rocephin and zithromax 3. COPD with acute exacerbation--oxygen and SVNs with duoneb, will hold on steroids as just finished round of prednisone 4. Diabetes mellitus type II--start accuchecks with SSI 5. Hypertension--resume home medications Clinical Quality Measures DVT/VTE Risk/Contraindication: Risk Factor Score Per Nursin RFS Level Per Nursing on Admit: 4+=Very High BELIA REID DO Mar 21, 2016 19:05
[2016-03-21 20:00] VITALS: BP 121/65
[2016-03-21] MEDS: inSUlin (REGULAR) HUMAN 1 UNIT/0.01 ML (CHARGE PER UNIT) SC SCH (20:59)
[2016-03-21] MEDS: busPIRone 5 MG (BUSPAR) TAB PO SCH (20:59)
[2016-03-21] MEDS: PANTOPRAZOLE 40 MG (PROTONIX) TAB PO SCH (20:59)
[2016-03-21] MEDS ORDERED: PRAMIPEXOLE 0.125 MG (MIRAPEX) TABLET PO SCH (21:00)
[2016-03-21] MEDS ORDERED: NON-FORMULARY MEDICATION 1 EA EA (Omeprazole 40 MG) PO SCH (21:00)
[2016-03-21] MEDS: GABAPENTIN 600 MG (NEURONTIN) TAB PO SCH (21:00)
[2016-03-21] MEDS: RT-ALBUTEROL/IPRATROPIUM 3 ML (DUONEB) VIAL INH SCH (23:00)
[2016-03-22] VITALS (8 sets, daily range): BP systolic 100–145; BP diastolic 53–84
[2016-03-22] MEDS: GABAPENTIN 600 MG (NEURONTIN) TAB PO SCH ×2 (01:56→20:15)
[2016-03-22] MEDS: ACETAMINOPHEN 500 MG TAB (TYLENOL) PO PRN ×2 (02:49→15:32)
[2016-03-22] MEDS: RT-ALBUTEROL/IPRATROPIUM 3 ML (DUONEB) VIAL INH SCH ×5 (02:52→22:08)
[2016-03-22] MEDS: inSUlin (REGULAR) HUMAN 1 UNIT/0.01 ML (CHARGE PER UNIT) SC SCH ×4 (05:49→21:34)
[2016-03-22] MEDS: NS IV 1000 ML 1,000 ML IV SCH (05:49)
[2016-03-22] MEDS: LACTOBACILLUS Acidoph/Bulgar (LACTINEX/FLORANEX) TAB PO SCH ×3 (05:49→17:14)
[2016-03-22] MEDS: PANTOPRAZOLE 40 MG (PROTONIX) TAB PO SCH ×2 (05:50→20:10)
[2016-03-22 06:01] LABS: BASOPHILS % (AUTO) 0 % (0-10); EOSINOPHILS # (AUTO) 0.1 10^3/uL (0.0-0.3); EOSINOPHILS % (AUTO) 1 % (0-10); LYMPHOCYTES # (AUTO) 1.8 X 10^3 (1.0-4.0); LYMPHOCYTES % (AUTO) 19 % (12-44); MEAN CORPUSCULAR HEMOGLOBIN 30 PG (25-34); MEAN CORPUSCULAR HGB CONC 33 G/DL (32-36); MEAN CORPUSCULAR VOLUME 93 FL (80-99); MEAN PLATELET VOLUME 9.9 FL (7.4-10.4); MONOCYTES # (AUTO) 0.6 X 10^3 (0.0-1.0); MONOCYTES % (AUTO) 6 % (0-12); NEUTROPHILS # (AUTO) 6.9 X 10^3 (1.8-7.8); NEUTROPHILS % (AUTO) 73 % (42-75); PLATELET COUNT 237 10^3/uL (130-400); RED BLOOD COUNT 4.33 10^6/uL (4.35-5.85); WHITE BLOOD COUNT 9.5 10^3/uL (4.3-11.0)
[2016-03-22 06:24] LABS: ALANINE AMINOTRANSFERASE 20 U/L (0-55); ALBUMIN 3.6 G/DL (3.2-4.5); ANION GAP 12 MMOL/L (5-14); ASPARTATE AMINO TRANSFERASE 14 U/L (5-34); BILIRUBIN,TOTAL 0.6 MG/DL (0.1-1.0); BLOOD UREA NITROGEN 10 MG/DL (7-18); BUN/CREATININE RATIO 13; CALCIUM 8.8 MG/DL (8.5-10.1); CARBON DIOXIDE 22 MMOL/L (21-32); CHLORIDE 106 MMOL/L (98-107); GFR ESTIMATED > 60; GLUCOSE 135 MG/DL (70-105); POTASSIUM 3.7 MMOL/L (3.6-5.0); SODIUM 140 MMOL/L (135-145); TOTAL PROTEIN 6.3 G/DL (6.4-8.2)
[2016-03-22] MEDS ORDERED: DIPH25TA29 PO (08:04)
[2016-03-22] MEDS ORDERED: PRAM1TAB5 PO (08:04)
[2016-03-22] MEDS ORDERED: CYCL10TA9 PO (08:04)
[2016-03-22] MEDS: AZITHROMYCIN 250 MG TAB (ZITHROMAX) PO SCH (09:37)
[2016-03-22] MEDS: GABAPENTIN 300 MG (NEURONTIN) CAP PO SCH (09:37)
[2016-03-22] MEDS: cefTRIAXone 1 GM/NS 50 ML IVPB IV SCH ×2 (09:37)
[2016-03-22] MEDS: busPIRone 5 MG (BUSPAR) TAB PO SCH ×3 (09:37→20:10)
--- NOTE | 2016-03-22 12:50 | Progress Note (SOAP) ---
Subjective Subjective/Events-last exam Fwup UTI, pneumonia, COPD exacerbation, DM II, Hypertension. Feels like broke fever this morning. Objective Exam Vital Signs Date Time Temp Pulse Resp B/P Pulse Ox O2 Delivery O2 Flow Rate FiO2 03/22/16 10:30 98 Nasal Cannula 2.00 03/22/16 09:00 Nasal Cannula 2.00 03/22/16 08:00 98.0 84 18 115/75 97 Nasal Cannula 2.00 03/22/16 06:59 94 Nasal Cannula 2.00 03/22/16 04:00 98.1 78 18 100/53 93 Nasal Cannula 2.00 03/22/16 02:53 03/22/16 02:40 98 2.00 03/22/16 00:00 98.3 74 18 118/70 97 Nasal Cannula 2.00 03/21/16 23:01 98 2.00 03/21/16 21:00 Nasal Cannula 2.00 03/21/16 20:08 96 2.00 03/21/16 20:00 98.4 77 18 121/65 97 Nasal Cannula 2.00 03/21/16 19:56 97 2.00 03/21/16 19:54 97 03/21/16 17:00 Nasal Cannula 2.00 03/21/16 16:45 97.6 69 18 127/58 96 Nasal Cannula 2.00 03/21/16 16:34 97.8 71 18 99 Nasal Cannula 2 03/21/16 14:24 Nasal Cannula 2 03/21/16 13:58 96.6 76 18 147/72 95 Room Air I & O 03/22/16 07:00 Intake Total 2240 ml Balance 2240 ml Capillary Refill : Less Than 3 Seconds General Appearance: No Apparent Distress Neck: Supple Respiratory: Decreased Breath Sounds Rhonci Cardiovascular: Regular Rate, Rhythm Systolic Murmur Gallop/S3 Gastrointestinal: normal bowel sounds non tender soft Extremity: Non Tender No Calf Tenderness No Pedal Edema Neurologic/Psychiatric: Alert Oriented x3 Skin: Normal Color Warm/Dry Results Lab Laboratory Tests 03/21/16 14:10: Alanine Aminotransferase (ALT/SGPT) 20, Albumin 3.8, Alkaline Phosphatase 88, Anion Gap 11, Aspartate Amino Transf (AST/SGOT) 17, BUN/Creatinine Ratio 14, Basophils # (Auto) 0.0, Basophils (%) (Auto) 0, Blood Urea Nitrogen 11, C- Reactive Protein High Sensitivity 6.80H, Calcium Level 9.0, Carbon Dioxide Level 26, Chloride Level 103, Creatinine 0.78, D-Dimer 0.36, Eosinophils # (Auto ) 0.1, Eosinophils (%) (Auto) 1, Estimat Glomerular Filtration Rate > 60, Glucose Level 122H, Hematocrit 41, Hemoglobin 13.7, Lactic Acid Level 0.9, Lymphocytes # (Auto) 2.0, Lymphocytes (%) (Auto) 18, Mean Corpuscular Hemoglobin 31, Mean Corpuscular Hemoglobin Concent 33, Mean Corpuscular Volume 92, Mean Platelet Volume 10.1, Monocytes # (Auto) 0.9, Monocytes (%) (Auto) 8, Neutrophils # (Auto) 8.2H, Neutrophils (%) (Auto) 73, Platelet Count 261, Potassium Level 3.5L, Red Blood Count 4.49, Red Cell Distribution Width 13.1, Sodium Level 140, Total Bilirubin 0.7, Total Protein 6.7, White Blood Count 11.3H 03/21/16 14:24: Urine Bacteria MODERATEH, Urine Bilirubin NEGATIVE, Urine Casts NONE, Urine Clarity CLEAR, Urine Color YELLOW, Urine Crystals NONE, Urine Culture Indicated YES, Urine Glucose (UA) NEGATIVE, Urine Ketones NEGATIVE, Urine Leukocyte Esterase 3+H, Urine Mucus SMALLH, Urine Nitrite NEGATIVE, Urine Protein 1+H, Urine RBC 0-2, Urine RBC (Auto) 1+H, Urine Specific [place] 1.020, Urine Squamous Epithelial Cells 10-25H, Urine Urobilinogen NORMAL, Urine WBC 50-100H, Urine pH 6 03/21/16 20:20: Glucometer 158H 03/22/16 05:24: Alanine Aminotransferase (ALT/SGPT) 20, Albumin 3.6, Alkaline Phosphatase 82, Anion Gap 12, Aspartate Amino Transf (AST/SGOT) 14, BUN/Creatinine Ratio 13, Basophils # (Auto) 0.0, Basophils (%) (Auto) 0, Blood Urea Nitrogen 10, Calcium Level 8.8, Carbon Dioxide Level 22, Chloride Level 106, Creatinine 0.80, Eosinophils # (Auto) 0.1, Eosinophils (%) (Auto) 1, Estimat Glomerular Filtration Rate > 60, Glucose Level 135H, Hematocrit 40, Hemoglobin 13.1, Lymphocytes # (Auto) 1.8, Lymphocytes (%) (Auto) 19, Mean Corpuscular Hemoglobin 30, Mean Corpuscular Hemoglobin Concent 33, Mean Corpuscular Volume 93, Mean Platelet Volume 9.9, Monocytes # (Auto) 0.6, Monocytes (%) (Auto) 6, Neutrophils # (Auto) 6.9, Neutrophils (%) (Auto) 73, Platelet Count 237, Potassium Level 3.7, Red Blood Count 4.33L, Red Cell Distribution Width 13.0, Sodium Level 140, Total Bilirubin 0.6, Total Protein 6.3L, White Blood Count 9.5 03/22/16 05:46: Glucometer 130H Microbiology 03/21/16 Urine Culture - Preliminary, Resulted NO GROWTH Assessment/Plan Assessment/Plan Assess & Plan/Chief Complaint 1. Acute UTI--urine culture negative so far, urology consulted for possible cystoscopy 2. Pneumonia--continue Rocephin/Zithromax 3. COPD exacerbation--continue oxygen, SVNs with duoneb, add symbicort 4. DM II--on accuchecks with SSI 5. Hypertension--resume home meds Diagnosis/Problems: Clinical Quality Measures DVT/VTE Risk/Contraindication: Risk Factor Score Per Nursin RFS Level Per Nursing on Admit: 4+=Very High NANNETTE REVELES DO Mar 22, 2016 12:50 pm
--- NOTE | 2016-03-22 13:36 | CONSULTATION REPORT ---
DATE OF CONSULTATION: 03/22/2016 ATTENDING PHYSICIAN: Dr. Reid. SUMMARY: After reviewing the patient's record in the office and the hospital, this is a 70-year-old white lady known to me because history of recurrent UTI. She was on Proloprim 100 mg at bedtime, history of stones had an ESWL in 2011 and did well. History of incontinence and overactive bladder. Had a PDS in 2013 and was on Ditropan XL 15 daily. Her last visit was 03/11/2014 and she never came back for follow-up. She is being admitted by Dr. Reid because of pneumonia but also has a history of recurrent UTI and that is the reason for the consultation. IMPRESSION: 1. Recurrent urinary tract infection. 2. History of stones. 3. History of incontinence and overactive bladder. PLAN: We will make sure that the patient is on all her medications. We will check the medicine list as well as the patient. Job ID: [id number] Dictated Date: 03/22/2016 12:49:52 Data Designer Date: 03/22/2016 13:31:20/aldo CHAMORRO
[2016-03-22] MEDS ORDERED: NON-FORMULARY MEDICATION 1 EA EA (Pramipexole Di-HCl (Pramipexole Dihydrochloride) 1 MG) PO SCH (18:00)
[2016-03-22] MEDS: PRAMIPEXOLE 0.5 MG TAB (MIRAPEX) PO SCH (18:32)
[2016-03-22] MEDS ORDERED: RT-ALBUTEROL/IPRATROPIUM 3 ML (DUONEB) VIAL INH PRN (19:00)
[2016-03-22] MEDS: RT-ADVAIR HFA 115/21 MCG PER PUFF IH SCH (19:01)
[2016-03-22] MEDS ORDERED: ALPRAZolam 0.25 MG (XANAX) TAB PO NR (20:00)
[2016-03-22] MEDS: PROPRANOLOL 20 MG (INDERAL) TABLET PO SCH (20:10)
[2016-03-22] MEDS ORDERED: GABAPENTIN 300 MG (NEURONTIN) CAP PO SCH (21:00)
[2016-03-22] MEDS ORDERED: NON-FORMULARY MEDICATION 1 EA EA (Propranolol HCl 40 MG) PO SCH (21:00)
[2016-03-23] VITALS: BP 109/70
[2016-03-23] MEDS: RT-ALBUTEROL/IPRATROPIUM 3 ML (DUONEB) VIAL INH SCH ×6 (02:28→23:01)
[2016-03-23 04:00] VITALS: BP 110/66
[2016-03-23] MEDS: inSUlin (REGULAR) HUMAN 1 UNIT/0.01 ML (CHARGE PER UNIT) SC SCH ×4 (06:00→21:00)
[2016-03-23] MEDS: PIOGLITAZONE 30MG (ACTOS) TAB PO SCH (06:42)
[2016-03-23] MEDS: PANTOPRAZOLE 40 MG (PROTONIX) TAB PO SCH ×2 (06:42→21:45)
[2016-03-23] MEDS: LACTOBACILLUS Acidoph/Bulgar (LACTINEX/FLORANEX) TAB PO SCH ×3 (06:42→16:01)
[2016-03-23] MEDS: RT-ADVAIR HFA 115/21 MCG PER PUFF IH SCH ×2 (06:54→19:12)
[2016-03-23] MEDS ORDERED: KETOROLAC 30 MG/ML VIAL IVP ONE (07:00)
[2016-03-23 08:00] VITALS: BP 124/82
[2016-03-23] MEDS: busPIRone 5 MG (BUSPAR) TAB PO SCH ×3 (08:31→21:45)
[2016-03-23] MEDS: GABAPENTIN 300 MG (NEURONTIN) CAP PO SCH (08:31)
[2016-03-23] MEDS: cefTRIAXone 1 GM/NS 50 ML IVPB IV SCH ×2 (08:31)
[2016-03-23] MEDS: AZITHROMYCIN 250 MG TAB (ZITHROMAX) PO SCH (08:31)
[2016-03-23] MEDS: PROPRANOLOL 20 MG (INDERAL) TABLET PO SCH ×2 (08:31→21:45)
--- NOTE | 2016-03-23 08:37 | Diagnostic Imaging Report ---
EXAMINATION: PA and lateral views of the chest. INDICATION: Followup pneumonia. COMPARISON: 03/21/2016. FINDINGS: There is a stable right basilar infiltrate and a small right pleural effusion without significant change. The heart size is mildly enlarged. A pacemaker with two leads is identified. The mediastinum and geoffrey appear unremarkable. There is no pneumothorax. There is evidence of prior kyphoplasty around the thoracolumbar junction in the spine. IMPRESSION: Stable right basilar infiltrate and small right effusion. Dictated by: Dictated on workstation # [id number]
[2016-03-23] MEDS ORDERED: GABAPENTIN 300 MG (NEURONTIN) CAP PO SCH (09:00)
--- NOTE | 2016-03-23 09:52 | Progress Note-Urology ---
Progress Note-Urology Progress Notes/Assess & Plan Progress/Assessment & Plan Patient quit her suppressive ABX as well as her anticholinergic I had her on for recurrent UTIs and wet OAB. I told her she needs to F/U with me to resume them and Rx both conditions, gave her appointment in 2 weeks Final Diagnosis Recurrent UTIs and wet OAB JUWAN CURRAN MD Mar 23, 2016 09:52
[2016-03-23 12:00] VITALS: BP 110/73
[2016-03-23] MEDS: KETOROLAC 30 MG/ML VIAL IVP PRN (13:28)
[2016-03-23 15:50] VITALS: BP 108/73
[2016-03-23] MEDS: PRAMIPEXOLE 0.5 MG TAB (MIRAPEX) PO SCH (18:13)
[2016-03-23 19:50] VITALS: BP 106/70
--- NOTE | 2016-03-23 20:35 | Progress Note (SOAP) ---
Subjective Subjective/Events-last exam Fwup UTI, pneumonia, COPD exacerbation, DM II, Hypertension. C/O MCCORMICK. Had tachycardia last night. Objective Exam Vital Signs Date Time Temp Pulse Resp B/P Pulse Ox O2 Delivery O2 Flow Rate FiO2 03/23/16 19:12 93 2.00 03/23/16 15:50 97.3 60 20 108/73 96 Nasal Cannula 3.00 03/23/16 14:40 95 2.00 03/23/16 13:28 97.4 03/23/16 12:00 97.4 60 20 110/73 95 Nasal Cannula 2.00 03/23/16 10:55 94 2.00 03/23/16 08:50 Nasal Cannula 2.00 03/23/16 08:00 98.1 69 18 124/82 94 Nasal Cannula 2.00 03/23/16 07:02 2.00 03/23/16 06:54 95 2.00 03/23/16 04:00 97.7 72 18 110/66 97 Nasal Cannula 2.00 03/23/16 02:29 96 2.00 03/23/16 00:00 97.8 65 18 109/70 97 Nasal Cannula 2.00 03/22/16 22:08 95 2.00 03/22/16 21:46 88 03/22/16 20:45 97.8 96 22 106/61 94 Nasal Cannula 2.00 I & O 03/23/16 07:00 Intake Total 2465 ml Output Total 3625 ml Balance -1160 ml Capillary Refill : Less Than 3 Seconds General Appearance: No Apparent Distress Neck: Supple Respiratory: Lungs Clear Decreased Breath Sounds Cardiovascular: Regular Rate, Rhythm Systolic Murmur Gallop/S3 Gastrointestinal: normal bowel sounds non tender soft Extremity: Non Tender No Calf Tenderness No Pedal Edema Neurologic/Psychiatric: Alert Oriented x3 Results Lab Laboratory Tests 03/22/16 20:44: Glucometer 217H 03/23/16 06:13: Glucometer 140H 03/23/16 11:02: Glucometer 183H 03/23/16 15:54: Glucometer 154H Microbiology 03/21/16 Blood Culture - Preliminary, Resulted No growth 03/21/16 Urine Culture - Final, Complete NO GROWTH Assessment/Plan Assessment/Plan Assess & Plan/Chief Complaint 1. Acute UTI--urine culture negative so far, urology consulted for possible cystoscopy 2. Pneumonia--continue Rocephin/Zithromax, CXR shows ongoing infiltrate but clinically lungs much improved and afebrile 3. COPD exacerbation--continue oxygen, SVNs with duoneb, add symbicort 4. DM II--on accuchecks with SSI 5. Hypertension--improved with propranolol 6. Tachycardia--improved with restart of propranolol 7. Cephalgia--toradol prn 8. Increase activity Diagnosis/Problems: Clinical Quality Measures DVT/VTE Risk/Contraindication: Risk Factor Score Per Nursin RFS Level Per Nursing on Admit: 4+=Very High NANNETTE REVELES DO Mar 23, 2016 8:35 pm
[2016-03-23] MEDS: GABAPENTIN 600 MG (NEURONTIN) TAB PO SCH (21:45)
[2016-03-23] MEDS: PROMETHAZINE/DM SYRUP (PHENERGDAN DM) 5 ML UDC PO PRN (21:53)
[2016-03-24] VITALS: BP 102/58
[2016-03-24] MEDS: RT-ALBUTEROL/IPRATROPIUM 3 ML (DUONEB) VIAL INH SCH ×6 (02:34→21:37)
[2016-03-24] MEDS: PROMETHAZINE/DM SYRUP (PHENERGDAN DM) 5 ML UDC PO PRN ×3 (02:57→20:34)
[2016-03-24 04:00] VITALS: BP 107/70
[2016-03-24] MEDS: inSUlin (REGULAR) HUMAN 1 UNIT/0.01 ML (CHARGE PER UNIT) SC SCH ×4 (06:00→20:36)
[2016-03-24] MEDS: LACTOBACILLUS Acidoph/Bulgar (LACTINEX/FLORANEX) TAB PO SCH ×3 (06:44→17:13)
[2016-03-24] MEDS: PIOGLITAZONE 30MG (ACTOS) TAB PO SCH (06:44)
[2016-03-24] MEDS: PANTOPRAZOLE 40 MG (PROTONIX) TAB PO SCH ×2 (06:44→20:35)
[2016-03-24] MEDS: RT-ADVAIR HFA 115/21 MCG PER PUFF IH SCH ×2 (07:27→18:43)
[2016-03-24] MEDS: cefTRIAXone 1 GM/NS 50 ML IVPB IV SCH ×2 (08:12)
[2016-03-24] MEDS: ACETAMINOPHEN 500 MG TAB (TYLENOL) PO PRN (08:14)
[2016-03-24] MEDS: GABAPENTIN 300 MG (NEURONTIN) CAP PO SCH (08:14)
[2016-03-24] MEDS: PROPRANOLOL 20 MG (INDERAL) TABLET PO SCH ×2 (08:14→20:35)
[2016-03-24] MEDS: AZITHROMYCIN 250 MG TAB (ZITHROMAX) PO SCH (08:14)
[2016-03-24] MEDS: busPIRone 5 MG (BUSPAR) TAB PO SCH ×3 (08:14→20:35)
[2016-03-24 08:37] VITALS: BP 131/62
--- NOTE | 2016-03-24 12:36 | Progress Note (SOAP) ---
Subjective Subjective/Events-last exam Fwup UTI, pneumonia, COPD exacerbation, DM II, Hypertension. Cough improving but still weak. Objective Exam Vital Signs Date Time Temp Pulse Resp B/P Pulse Ox O2 Delivery O2 Flow Rate FiO2 03/24/16 11:07 94 03/24/16 08:37 99.0 74 18 131/62 95 Nasal Cannula 3.00 03/24/16 08:00 Nasal Cannula 2.00 03/24/16 07:25 92 03/24/16 07:25 92 2.00 03/24/16 04:00 97.7 69 20 107/70 94 Nasal Cannula 3.00 03/24/16 02:35 94 2.00 03/24/16 00:00 98.4 80 17 102/58 96 Nasal Cannula 3.00 03/23/16 23:02 96 2.00 03/23/16 20:00 Nasal Cannula 2.00 03/23/16 19:50 98.0 66 24 106/70 96 Nasal Cannula 3.00 03/23/16 19:12 93 2.00 03/23/16 15:50 97.3 60 20 108/73 96 Nasal Cannula 3.00 03/23/16 14:40 95 2.00 03/23/16 13:28 97.4 I & O 03/24/16 07:00 Intake Total 1780 ml Output Total 1500 ml Balance 280 ml Capillary Refill : Less Than 3 Seconds General Appearance: No Apparent Distress Neck: Supple Respiratory: Crackles (bases but much less rhonchi and wheezes) Decreased Breath Sounds Cardiovascular: Regular Rate, Rhythm Systolic Murmur Gallop/S3 Gastrointestinal: non tender soft Extremity: Non Tender No Calf Tenderness No Pedal Edema Neurologic/Psychiatric: Alert Oriented x3 Results Lab Laboratory Tests 03/23/16 15:54: Glucometer 154H 03/23/16 20:48: Glucometer 157H 03/24/16 06:10: Glucometer 128H 03/24/16 11:10: Glucometer 205H Microbiology 03/21/16 Blood Culture - Preliminary, Resulted No growth 03/21/16 Urine Culture - Final, Complete NO GROWTH Assessment/Plan Assessment/Plan Assess & Plan/Chief Complaint 1. Acute UTI--urine culture negative so far, urology consulted for possible cystoscopy but wants to DC on prophylactic abx with OAB meds so will start detrol prior to DC 2. Pneumonia--continue Rocephin/Zithromax, CXR shows ongoing infiltrate but clinically lungs much improved and afebrile 3. COPD exacerbation--continue oxygen, SVNs with duoneb and symbicort 4. DM II--on accuchecks with SSI 5. Hypertension--improved with propranolol 6. Tachycardia--improved with restart of propranolol 7. Cephalgia--toradol prn 8. Increase activity--up to chair Diagnosis/Problems: Clinical Quality Measures DVT/VTE Risk/Contraindication: Risk Factor Score Per Nursin RFS Level Per Nursing on Admit: 4+=Very High NANNETTE REVELES DO Mar 24, 2016 12:36
[2016-03-24] MEDS: KETOROLAC 30 MG/ML VIAL IVP PRN (13:07)
[2016-03-24 16:21] VITALS: BP 111/59
[2016-03-24] MEDS: PRAMIPEXOLE 0.5 MG TAB (MIRAPEX) PO SCH (17:13)
[2016-03-24 20:03] VITALS: BP 142/61
[2016-03-24] MEDS: GABAPENTIN 600 MG (NEURONTIN) TAB PO SCH (20:35)
[2016-03-24] MEDS ORDERED: TOLTERODINE LA 4 MG (DETROL) CAP PO SCH (21:00)
[2016-03-25] VITALS: BP 112/58
[2016-03-25] MEDS: PROMETHAZINE/DM SYRUP (PHENERGDAN DM) 5 ML UDC PO PRN (02:28)
[2016-03-25] MEDS: RT-ALBUTEROL/IPRATROPIUM 3 ML (DUONEB) VIAL INH SCH ×3 (02:28→10:33)
[2016-03-25] MEDS: inSUlin (REGULAR) HUMAN 1 UNIT/0.01 ML (CHARGE PER UNIT) SC SCH ×2 (06:00→11:00)
[2016-03-25] MEDS ORDERED: RT-ALBUTEROL/IPRATROPIUM 3 ML (DUONEB) VIAL INH PRN (06:00)
[2016-03-25] MEDS: PANTOPRAZOLE 40 MG (PROTONIX) TAB PO SCH (06:32)
[2016-03-25] MEDS: PIOGLITAZONE 30MG (ACTOS) TAB PO SCH (06:32)
[2016-03-25] MEDS: LACTOBACILLUS Acidoph/Bulgar (LACTINEX/FLORANEX) TAB PO SCH ×2 (06:32→12:12)
[2016-03-25] MEDS: RT-ADVAIR HFA 115/21 MCG PER PUFF IH SCH (07:22)
[2016-03-25 08:38] VITALS: BP 129/65
[2016-03-25] MEDS: busPIRone 5 MG (BUSPAR) TAB PO SCH ×2 (08:38→12:12)
[2016-03-25] MEDS: GABAPENTIN 300 MG (NEURONTIN) CAP PO SCH (08:38)
[2016-03-25] MEDS: AZITHROMYCIN 250 MG TAB (ZITHROMAX) PO SCH (08:38)
[2016-03-25] MEDS: PROPRANOLOL 20 MG (INDERAL) TABLET PO SCH (08:38)
[2016-03-25] MEDS: cefTRIAXone 1 GM/NS 50 ML IVPB IV SCH ×2 (08:38)
[2016-03-25] MEDS: ACETAMINOPHEN 500 MG TAB (TYLENOL) PO PRN (10:30)
[2016-03-25] MEDS ORDERED: TOLTA4 PO (11:49)
[2016-03-25] MEDS ORDERED: IPRA3AMP INH (11:49)
[2016-03-25] MEDS ORDERED: CEFD300C3 PO (11:49)
--- NOTE | 2016-03-25 11:50 | Discharge Inst-Simple/Standard ---
Discharge Inst-Standard Patient Instructions/Follow Up Plan of Care/Instructions/FU: Fwup with me in 1 week Activity as Tolerated: Yes Discharge Diet: Cardiac Diet NANNETTE REVELES DO Mar 25, 2016 11:50 am
[2016-03-25] MEDS: KETOROLAC 30 MG/ML VIAL IVP PRN (12:14)
--- NOTE | 2016-03-25 15:20 | Discharge Summary ---
Diagnosis/Chief Complaint Date of Admission Mar 21, 2016 at 3:44 pm Date of Discharge Mar 25, 2016 at 1:22 pm Discharge Date: Mar 25, 2016 Admission Diagnosis Admission Diagnosis 1. Acute Urinary Tract Infection--cover with rocephin and culture urine, consult Dr. Ortiz due to recurrent UTIs 2. Developing Right Lower Lobe Pneumonia--cover with rocephin and zithromax 3. COPD with acute exacerbation--oxygen and SVNs with duoneb, will hold on steroids as just finished round of prednisone 4. Diabetes mellitus type II--start accuchecks with SSI 5. Hypertension--resume home medications Discharge Diagnosis 1. Acute UTI with history or recurrent UTIs and Overactive Bladder 2. Right Lower Lobe Pneumonia 3. Exacerbation of COPD 4. Migraine 5. Hypertension 6. Sinus Tachycardia 7. Diabetes mellitus II Reason Hospital Visit This is a 70 year old female with a known history of COPD who presented to the emergency room with a 2 week history of worsening shortness of air. She reported fever as well but was afebrile in the emergency room. She also reported worsening weakness with headache and bodyaches. She was found to have a urinary tract infection as well as possible early developing infiltrate on CXR. She will be admitted and started on rocephin and zithromax. Discharge Summary Hospital Course Hospital Course This is a 70 year old female with a known history of COPD who presented to the emergency room with a 2 week history of worsening shortness of air. She reported fever as well but was afebrile in the emergency room. She also reported worsening weakness with headache and bodyaches. She was found to have a urinary tract infection as well as possible early developing infiltrate on CXR. She was admitted and started on rocephin and zithromax. She was also started on SVNs with duoneb and symbicort. The first 2 days she continued to have cough, congestion and rhonchi and wheezing with sweats but she felt like her fever finally broke early on the morning of her 3rd hospital day and her cough and chest congestion also improved. She did have migraines during her hospital stay which responded to toradol. She also continued to have overall weakness and urinary incontinence. Dr. Ortiz was consulted and recommended restarting an overactive bladder medication and putting her back on a prophylactic antibiotic after she had completed her antibiotics for her pneumonia and then following up with him as an outpatient. Detrol LA was started on the patient while she was still inpatient. By the day of discharge, she was feeling much better. Her lungs were clear and she was feeling stronger. She had completed her course of zithromax and was given her IV rocephin then discharged to home. She will start cefdinir tomorrow and resume her home nebulizer treatments with duoneb and a prescription of detrol LA was also sent out. She will followup with me in my office in [address] Ortiz in 2 weeks. We also discussed going back to neurology for followup on her headaches which have been worsening recently. Labs Laboratory Tests 03/22/16 16:51: Glucometer 176H 03/22/16 20:44: Glucometer 217H 03/23/16 06:13: Glucometer 140H 03/23/16 11:02: Glucometer 183H 03/23/16 15:54: Glucometer 154H 03/23/16 20:48: Glucometer 157H 03/24/16 06:10: Glucometer 128H 03/24/16 11:10: Glucometer 205H 03/24/16 16:24: Glucometer 117H 03/24/16 20:35: Glucometer 122H 03/25/16 05:58: Glucometer 121H 03/25/16 10:32: Glucometer 177H Procedures None. Discharge Physical Examination Allergies: Coded Allergies: hydromorphone (Verified Allergy, Mild, STRONG RASH, 10/28/06) Penicillins (Verified Allergy, Unknown, 10/28/06) Sulfa (Sulfonamide Antibiotics) (Verified Allergy, Unknown, 10/28/06) aspirin (Unverified Adverse Reaction, Mild, ASPIRIN SENSITIVE, 08/14/08) sumatriptan (Unverified Adverse Reaction, Mild, PALPITATIONS, 08/14/08) Vitals & I&Os Vital Signs Date Time Temp Pulse Resp B/P Pulse Ox O2 Delivery O2 Flow Rate FiO2 03/25/16 10:33 92 2.00 03/25/16 08:38 98.3 68 16 129/65 Nasal Cannula General Appearance: Alert, Oriented X3, Cooperative, No Acute Distress Respiratory: Clear to Auscultation Cardiovascular: Regular Rate Abdominal: Normal Bowel Sounds, Soft, No Tenderness Extremities: No Clubbing, No Cyanosis, No Edema Psych/Mental Status: Mental Status NL, Mood NL Discharge Home Medications Reviewed and agree with Discharge Medication list on patient's Discharge Instruction sheet Instructions to Patient/Family Please see electonic discharge instructions given to patient. Clinical Quality Measures DVT/VTE Risk/Contraindication: Risk Factor Score Per Nursin RFS Level Per Nursing on Admit: 4+=Very High NANNETTE REVELES DO Mar 25, 2016 3:20 pm
[2016-05-16] MEDS ORDERED: PANT40TA2 PO (13:19)
[2016-05-16] MEDS ORDERED: HC A30CR RC (13:19)
[2016-06-12] MEDS ORDERED: LORA0.5T PO (08:28)
== END 2016-03-25 13:22 | disposition home or self-care (01) | DRG 190 ==
LOC: EDUNIT# 13:52 → ER 13:54 → 4TH 15:44 → UNDOADMIN 15:44
PROVIDERS: ADMIT Family Medicine; ATTEND Family Medicine
DX: J44.0 Chronic obstructive pulmonary disease with (acute) lower respiratory infection (principal); J18.9 Pneumonia, unspecified organism; J44.1 Chronic obstructive pulmonary disease with (acute) exacerbation; N39.0 Urinary tract infection, site not specified; N32.81 Overactive bladder; E11.9 Type 2 diabetes mellitus without complications; I10 Essential (primary) hypertension; K21.9 Gastro-esophageal reflux disease without esophagitis; K57.90 Diverticulosis of intestine, part unspecified, without perforation or abscess without bleeding; G25.81 Restless legs syndrome; M79.7 Fibromyalgia; F32.9 Major depressive disorder, single episode, unspecified; F41.9 Anxiety disorder, unspecified; Z87.442 Personal history of urinary calculi; R00.0 Tachycardia, unspecified; G43.909 Migraine, unspecified, not intractable, without status migrainosus
CPT/HCPCS: 36415; 71020; 80053; 81000; 82962; 83605; 85025; 85379; 86141; 87040; 87088; 93005; 94640; 94664; 94760; 96374

== ENCOUNTER 2016-04-13 07:52 | Inpatient (IN) | payer MEDICARE ==
[~2016-04-13] VITALS: Ht 162.6 cm; Wt 100.9 kg
[~2016-04-13 07:52] MED LIST changes: +CEFD300C3 PO; +DIPH25TA29 PO; +GABA-488 PO; +GLIM2TAB PO; +PIOG30TA26 PO; +PRAM1TAB5 PO; +TOLTA4 PO
--- OUTSIDE RECORDS SUMMARY | 2016-04-13 07:59 | XMS REPORT | Continuity of Care Document ---
Author Author [facility] Organization [facility] Address Unknown Phone Unavailable Care Team Providers Care Title Supervisor Name Role Phone NANNETTE REID DO PCP Insurance Providers Payer Name Policy Number Subscriber Name Relationship [employer] [id number] Diana Gregory 19 Self / Same As Patient [facility] [id number] Diana Gregory 19 Self / Same As Patient Advance Directives Directive Response Recorded Date/Time Advance Directives Yes 02/02/14 7:40pm Health Care Power of Equities Trader No 02/02/14 7:40pm Organ Donor Yes 02/02/14 [...] FACP FACC CCDS (Unspecified) 1 Week Address: [address] [place] [address] [address] [place] [address] Reason(s) for Referral: Please call the office to make a follow up appointment next week with Dr. Cerda. If you have any questions/concerns call the office. NANNETTE REID DO (Unspecified) 1 Week Address: [address] [place] [address] Reason(s) for Referral: Please call the office to make a follow up appointment with Dr. Reid for 1 week. Call the office if you have questions/concerns. Functional Status Query Response Date Recorded Patient Orientation Person Place Time February 03, 2014 10:35pm Comprehension Ability Understands Concepts February 02, 2014 7:40pm Allergies, Adverse Reactions, Alerts Allergen Type Severity Reaction Status Last Updated Penicillins ([id number]) Allergy Unknown Active 10/28/06 Sulfa (Sulfonamide Antibiotics) ([id number]) Allergy Unknown Active 27/09 Aspirin Adverse Reaction [...] F (97.6 - 99.5) Temperature (Calculated Celsius) 36.69395 degrees C (36.4 - 37.5) Temperature Source Temporal Pulse Rate (adult) 68 bpm (60 - 90) Respiratory Rate 20 bpm (12 - 24) O2 Sat by Pulse Oximetry 97 % (88 - 100) Blood Pressure 142/81 mm Hg Pain Pain Intensity 0 Height (Feet) 5 feet Height (Inches) 65.00 inches Height (Calculated Centimeters) 165.034011 cm Weight (Pounds) 205 pounds Weight (Ounces) 9.0 oz Weight (Calculated Grams) 42999.437 gm Weight (Calculated Kilograms) 92.834962 kilograms Calculated BMI 34.28 Results Laboratory Results [...] SELECTED GROUPS OF HIGH RISK PATIENTS. [employer] CONSENSUS CONFERENCE ON ANTITHROMBOTIC THERAPY (2000). Activated Partial Thromboplast Time 20 SEC L 24-35 02/02/2014 6:30pm 04/2013 6:55pm Urine Color YELLOW 02/03/2014 5:57pm 02/03/2014 6:26pm Urine Clarity SLIGHTLY CLOUDY 02/03/2014 5:57pm 02/03/2014 6:26pm Urine pH 6 5-9 02/03/2014 5:57pm 02/03/2014 6:26pm Urine Specific [place] 1.015 * 1.016-1.022 02/03/2014 5:57pm 2013 6:26pm [...] Encounters Encounter Location Date/Time Discharged Inpatient [facility] 02/02/14 7:46pm Departed [facility] 01/06/14 6:09am Recent Diagnosis Chest pain
[2016-04-13] MEDS ORDERED: RT-ALBUTEROL/IPRATROPIUM 3 ML (DUONEB) VIAL ONE (08:00)
[2016-04-13 08:13] LABS: BASOPHILS # (AUTO) 0.1 10^3/uL (0.0-0.1); BASOPHILS % (AUTO) 1 % (0-10); EOSINOPHILS # (AUTO) 0.3 10^3/uL (0.0-0.3); EOSINOPHILS % (AUTO) 4 % (0-10); LYMPHOCYTES # (AUTO) 2.3 X 10^3 (1.0-4.0); LYMPHOCYTES % (AUTO) 27 % (12-44); MEAN CORPUSCULAR HEMOGLOBIN 30 PG (25-34); MEAN CORPUSCULAR HGB CONC 33 G/DL (32-36); MEAN CORPUSCULAR VOLUME 91 FL (80-99); MEAN PLATELET VOLUME 9.7 FL (7.4-10.4); MONOCYTES # (AUTO) 0.5 X 10^3 (0.0-1.0); MONOCYTES % (AUTO) 6 % (0-12); NEUTROPHILS # (AUTO) 5.3 X 10^3 (1.8-7.8); NEUTROPHILS % (AUTO) 63 % (42-75); PLATELET COUNT 254 10^3/uL (130-400); RED BLOOD COUNT 4.67 10^6/uL (4.35-5.85); RED CELL DISTRIBUTION WIDTH 13.1 % (10.0-14.5); WHITE BLOOD COUNT 8.4 10^3/uL (4.3-11.0)
[2016-04-13] MEDS ORDERED: RT-ALBUTEROL/IPRATROPIUM 3 ML (DUONEB) VIAL INH ONE (08:15)
[2016-04-13 08:29] LABS: ALANINE AMINOTRANSFERASE 28 U/L (0-55); ALBUMIN 3.8 G/DL (3.2-4.5); ANION GAP 9 MMOL/L (5-14); ASPARTATE AMINO TRANSFERASE 24 U/L (5-34); BILIRUBIN,TOTAL 0.4 MG/DL (0.1-1.0); BLOOD UREA NITROGEN 10 MG/DL (7-18); BUN/CREATININE RATIO 12; CALCIUM 8.8 MG/DL (8.5-10.1); CARBON DIOXIDE 27 MMOL/L (21-32); CHLORIDE 106 MMOL/L (98-107); CREATININE SERUM 0.83 MG/DL (0.60-1.30); GFR ESTIMATED > 60; GLUCOSE 123 MG/DL (70-105); POTASSIUM 3.8 MMOL/L (3.6-5.0); SODIUM 142 MMOL/L (135-145); TOTAL PROTEIN 6.6 G/DL (6.4-8.2)
--- NOTE | 2016-04-13 08:43 | Diagnostic Imaging Report ---
Portable upright radiograph of the chest. INDICATION: Chronic cough and shortness of breath. COMPARISON: 03/23/2016. FINDINGS: There is moderate cardiomegaly. There is mild bibasilar atelectasis or infiltrate with minimal vascular congestion. No pneumothorax. No significant effusion. Cardiac pacer with two leads seen. IMPRESSION: Cardiomegaly with minimal vascular congestion. Subsegmental bibasilar atelectasis or infiltrate. Dictated by: Dictated on workstation # [id number]
--- NOTE | 2016-04-13 09:43 | ED Respiratory ---
General Chief Complaint: Respiratory Problems Stated Complaint: SOA/COUGH Nursing Triage Note: ARRIVED VIA AMB WITH A CANE TO ROOM 08 WITH COMPLAINTS OF INCREASING SOA STARTING LAST NOC. PT WEARS OXYGEN AT NOC BUT WAS TOLD TO WEAR IT ALL THE TIME WHICH SHE DOES NOT. Source: patient Exam Limitations: no limitations History of Present Illness Time seen by provider: 09:40 Initial Comments The patient is a 70-year-old white female who presents with complaints of increasing shortness of breath over the last week or more. She was hospitalized from March 21- because of respiratory difficulties. She states that she uses oxygen at home and has been faithful with her nebulizer treatments. She has not had a fever. She is not coughing up any sputum. Timing/Duration: week, getting worse Prior Episodes/Possible Cause: frequent episodes Modifying Factors: Improves With Albuterol Nebulizer, Improves With Coughing, Improves With Oxygen Associated Symptoms: chest pain/soreness Allergies and Home Medications Allergies Coded Allergies: hydromorphone (Verified Allergy, Mild, STRONG RASH, 10/28/06) Penicillins (Verified Allergy, Unknown, 10/28/06) Sulfa (Sulfonamide Antibiotics) (Verified Allergy, Unknown, 10/28/06) aspirin (Unverified Adverse Reaction, Mild, ASPIRIN SENSITIVE, 08/14/08) sumatriptan (Unverified Adverse Reaction, Mild, PALPITATIONS, 08/14/08) Home Medications Acetaminophen 325 Mg Tablet 650 MG PO Q6H PRN PRN FEVER (Reported) TAKES 2 (325MG) TABLETS Buspirone HCl 5 Mg Tablet 5 MG PO TID (Reported) Cefdinir 300 Mg Capsule #14 300 MG PO BID Prescribed by: NANNETTE REVELES on 03/25/16 1149 Cetirizine HCl 10 Mg Tablet 10 MG PO BID PRN PRN ALLERGIES (Reported) Cyclobenzaprine HCl 10 Mg Tablet 10 MG PO TID PRN PRN MUSCLE SPASMS (Reported) Diphenhydramine HCl 25 Mg Tablet 50 MG PO DAILY PRN PRN ITCHING (Reported) TAKES 2 (25MG) TABLETS Gabapentin 300 Mg Capsule 300 MG PO DAILY (Reported) Gabapentin 300 Mg Capsule 600 MG PO HS (Reported) TAKES 2 (300MG) CAPSULES Glimepiride 2 Mg Tablet 2 MG PO BID (Reported) Ipratropium/Albuterol Sulfate 3 Ml Ampul.neb #30 3 ML INH RTQ4HR Prescribed by: NANNETTE REVELES on 03/25/16 1149 Omeprazole 40 Mg Capsule.dr 40 MG PO BID (Reported) Pioglitazone HCl 30 Mg Tablet 30 MG PO DAILY (Reported) Pramipexole Di-HCl 1 Mg Tablet 1 MG PO 1800 (Reported) Propranolol HCl 40 Mg Tablet 40 MG PO BID (Reported) Tolterodine Tartrate 4 Mg Cap #30 4 MG PO HS Prescribed by: NANNETTE REVELES on 03/25/16 1149 Constitutional: see HPI EENTM: no symptoms reported Respiratory: see HPI cough short of breath stridor wheezing Cardiovascular: no symptoms reported Gastrointestinal: no symptoms reported Genitourinary: no symptoms reported Musculoskeletal: no symptoms reported Skin: no symptoms reported Psychiatric/Neurological: No Symptoms Reported Hematologic/Lymphatic: No Symptoms Reported Immunological/Allergic: no symptoms reported Past Hdllilc-Lvpjjy-Mtbiww Hx Patient Social History Recent Foreign Travel: No Contact w/Someone Who Travel: No Recent Infectious Disease Expo: No Recent Hopitalizations: No Immunizations Up To Date Tetanus Booster (TDap): Unknown PED Vaccines UTD: No Date of Pneumonia Vaccine: May 24, 2012 Date of Influenza Vaccine: Jan 25, 2016 Seasonal Allergies Seasonal Allergies: No Surgeries HX Surgeries: Yes Surgeries: Abdominal, Appendectomy, Cardiac, Defibrillator, Gallbladder, Hysterectomy, Oophorectomy, Pacemaker, Tonsillectomy Respiratory Hx Respiratory Disorders: Yes (COPD) Respiratory Disorders: Pneumonia, Chronic Bronchitis, Sleep Apnea, COPD Cardiovascular Hx Cardiac Disorders: Yes (HX CARDIAC ARREST DURING ENT SURGERY, PACER/ICD) Cardiac Disorders: Irregular Heartbeat Neurological Hx Neurological Disorders: Yes (PERIPHERAL NEUROPATHY) Neurological Disorders: Headaches /Migraines, Neuropathy 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 System Hx 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 Disorders: No Sexually Transmitted Disease: No Female 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 Disorders: Denies [employer]ATE History: Hysterectomy Genitourinary Hx Genitourinary Disorders: Yes (RIGHT INTRARENAL STONE) Genitourinary Disorders: Kidney Infection, Bladder Infection, Kidney Stones, UTI-Chronic Gastrointestinal Hx Gastrointestinal Disorders: Yes (c-diff in march 2015) Gastrointestinal Disorders: Gastroesophageal Reflux, Diverticulosis, C-Diff, Hiatal Hernia, Ulcer, Gall Bladder Disease, Irritable Bowel Musculoskeletal Hx Musculoskeletal Disorders: Yes (RESTLESS LEG SYNDROME) Musculoskeletal Disorders: Degenerate Disk Disease, Arthritis, Fibromyalgia Endocrine Hx Endocrine Disorders: Yes Endocrine Disorders: Diabetes, Non-Insulin dep HEENT HX ENT Disorders: Yes HEENT Disorders: Cataract Loss of Vision: Denies Hearing Impairment: Denies Cancer Hx Cancer: No Psychosocial Hx Psychiatric Problems: Yes Behavioral Health Disorders: Anxiety, Depression Integumentary HX Skin/Integumentary Disorder: Yes Skin/Integumentary Disorders: Pruritis Blood Transfusions Hx Blood Disorders: No Adverse Reaction to a Blood Tr: No Family Medical History Family Medial History: Alzheimer's disease 19 FATHER Cardiovascular disease 19 FATHER 19 MOTHER Completed stroke 19 MOTHER Hypertension 19 FATHER 19 MOTHER Myocardial infarction 19 FATHER 19 MOTHER No Family History of: Diabetes mellitus Physical Exam Vital Signs Vital Sign - Last 12Hours 04/13/16 04/13/16 07:55 08:04 Temp 97.2 Pulse 70 Resp 18 B/P 104/78 Pulse Ox 98 O2 Flow Rate 2 Capillary Refill : Less Than 3 Seconds General Appearance: mild distress moderate distress Eyes: Bilateral Eye Normal Inspection HEENT: normal ENT inspection Neck: full range of motion Respiratory: chest non-tender no accessory muscle use respiratory distress decreased breath sounds rhonchi stridor wheezing expiration Cardiovascular: normal peripheral pulses regular rate, rhythm no edema no gallop no JVD no murmur Gastrointestinal: normal bowel sounds non tender soft no organomegaly no pulsatile mass Extremities: normal range of motion 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 as tested no motor/sensory deficits alert normal mood/affect oriented x 3 Skin: normal color warm/dry cyanosis cool diaphoresis damp Lymphatic: no adenopathy axilla node tender (R) axilla node tender (L) inguinal node tender (R) inguinal node tender (L) Progress/Results/Core Measures Results/Orders Lab Results Laboratory Tests Test 04/13/16 08:02 04/13/16 09:42 Range/Units Alanine Aminotransferase (ALT/SGPT) 28 0-55 U/L Albumin 3.8 3.2-4.5 G/DL Alkaline Phosphatase 105 40-136 U/L Anion Gap 9 5-14 MMOL/L Aspartate Amino Transf (AST/SGOT) 24 5-34 U/L BUN/Creatinine Ratio 12 Basophils # (Auto) 0.1 0.0-0.1 10^3/uL Basophils (%) (Auto) 1 0-10 % Blood Urea Nitrogen 10 7-18 MG/DL Calcium Level 8.8 8.5-10.1 MG/DL Carbon Dioxide Level 27 21-32 MMOL/L Chloride Level 106 98-107 MMOL/L Creatinine 0.83 0.60-1.30 MG/DL Eosinophils # (Auto) 0.3 0.0-0.3 10^3/uL Eosinophils (%) (Auto) 4 0-10 % Estimat Glomerular Filtration Rate > 60 Glucose Level 123 H 70-105 MG/DL Hematocrit 43 35-52 % Hemoglobin 14.1 11.5-16.0 G/DL Lymphocytes # (Auto) 2.3 1.0-4.0 X 10^3 Lymphocytes (%) (Auto) 27 12-44 % Mean Corpuscular Hemoglobin 30 25-34 PG Mean Corpuscular Hemoglobin Concent 33 32-36 G/DL Mean Corpuscular Volume 91 80-99 FL Mean Platelet Volume 9.7 7.4-10.4 FL Monocytes # (Auto) 0.5 0.0-1.0 X 10^3 Monocytes (%) (Auto) 6 0-12 % Neutrophils # (Auto) 5.3 1.8-7.8 X 10^3 Neutrophils (%) (Auto) 63 42-75 % Platelet Count 254 130-400 10^3/uL Potassium Level 3.8 3.6-5.0 MMOL/L Red Blood Count 4.67 4.35-5.85 10^6/uL Red Cell Distribution Width 13.1 10.0-14.5 % Sodium Level 142 135-145 MMOL/L Total Bilirubin 0.4 0.1-1.0 MG/DL Total Protein 6.6 6.4-8.2 G/DL White Blood Count 8.4 4.3-11.0 10^3/uL My Orders Orders-ROMI KAUR MD Chest 1 View, Ap/Pa Only (04/13/16 08:01) Albuterol/Ipra Inhalation Soln (Duoneb I (04/13/16 08:15) Cbc With Automated Diff (04/13/16 08:01) Comprehensive Metabolic Panel (04/13/16 08:01) Ua Culture If Indicated (04/13/16 08:01) Svn Sm Volume Nebulizer Rt-Rfs (04/13/16 08:01) Albuterol/Ipra Inhalation Soln (Duoneb I (04/13/16 08:00) BNP (04/13/16 09:43) Troponin I (04/13/16 09:43) Medications Given in ED Current Medications Medications Dose Ordered Sig/Alannah Route Start Time Stop Time Status Last Admin Dose Admin Albuterol/ Ipratropium 3 ml ONCE ONCE INH 04/13/16 08:15 04/13/16 08:16 DC 04/13/16 08:04 3 ML Vital Signs/I&O Vital Sign - Last 12Hours 04/13/16 04/13/16 07:55 08:04 Temp 97.2 Pulse 70 Resp 18 B/P 104/78 Pulse Ox 98 99 O2 Flow Rate 2 Blood Pressure Mean: 87 Departure Impression Impression: Primary Impression: COPD/exacerbation Disposition: ADMITTED INPATIENT Condition: Stable/Unchanged Decision to Admit/Date: Apr 13, 2016 Time/Decision to Admit Time: 09:53 Departure-Patient Inst. Referrals: NANNETTE REVELES DO (PCP/Family) Primary Care Physician ROMI KAUR MD Apr 13, 2016 09:43
[2016-04-13 09:53] LABS: BILIRUBIN,URINE NEGATIVE (NEGATIVE); KETONES,URINE NEGATIVE (NEGATIVE); LEUKOCYTE ESTERASE ,URINE 2+ (NEGATIVE); NITRITE,URINE NEGATIVE (NEGATIVE); PH,URINE 6 (5-9); PROTEIN,URINE NEGATIVE (NEGATIVE); UROBILINOGEN,URINE NORMAL (NORMAL)
[2016-04-13 10:00] LABS: SQUAMOUS EPITHELIAL CELL,UR 25-50 /HPF
[2016-04-13] MEDS ORDERED: cefTRIAXone INJECTION 1,000 MG in NS (IVPB) 50 ML IV ONE (10:00)
[2016-04-13] MEDS ORDERED: TOLT4CAP13 PO (10:30)
[2016-04-13] MEDS ORDERED: IPRA3AMP NEB (10:30)
[2016-04-13] MEDS ORDERED: CATHETER FLUSH 10 ML SYR IV PRN (11:45)
[2016-04-13] MEDS: NS IV 1000 ML 1,000 ML IV SCH (11:59)
[2016-04-13 12:00] VITALS: BP 126/62
[2016-04-13] MEDS: methylPREDNISolone 125 MG (Solu-MEDROL) VIAL IV SCH ×3 (12:13→23:40)
[2016-04-13] MEDS: RT-ALBUTEROL/IPRATROPIUM 3 ML (DUONEB) VIAL IH SCH ×2 (14:23→20:00)
[2016-04-13 15:35] VITALS: BP 146/83
[2016-04-13] MEDS ORDERED: KETOROLAC 15 MG/ML VIAL ONE (16:21)
[2016-04-13] MEDS ORDERED: KETOROLAC 15 MG/ML VIAL IVP PRN (16:30)
[2016-04-13] MEDS: inSUlin (REGULAR) HUMAN 1 UNIT/0.01 ML (CHARGE PER UNIT) SC SCH ×2 (16:52→21:05)
[2016-04-13 20:10] VITALS: BP 131/74
--- NOTE | 2016-04-13 21:09 | History & Physicial ---
History of Present Illness History of Present Illness Reason for visit/HPI 70-year-old female admitted on 04/13/2016 for acute onset shortness of breath and dyspnea that occurred at home. Patient attributes at least in part to suspected black mold under her house due to a history of leaking pipe. She also reports black mold was an issue with the previous house as it always seemed to upset her respiratory tract. Patient also reports she has recently found out she is now allergic to cats. She owns 5 that live in the house with her and her . Not ready to give them up. Patient reports she had just completed Keflex about a week ago for pneumonia as well as urinary tract infection. Patient reports the respiratory issues did not completely go away from previous admit. Of which she attributes to the previously mentioned factors. Over the past week though patient has been functioning relatively normal. 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 This current episode of respiratory issues she has the symptoms of cough, wheezing, sensation of something bothering her throat. She has been using her breathing treatments and uses her oxygen at nighttime and occasionally in the day but acknowledges the 50 feet of nasal cannula tubing is a trip hazard so she does not always wear it. Of note patient plans on moving into town to get away from the black mold issue. Patient also has been undergoing pulmonary rehabilitation. Patient reports she has had warm sensation followed by cold sweats thus likely a fever. Patient denies any true chest pain but does endorse edema with being on her feet most a day. The edema decreases with lying down. Patient also endorses hemorrhoids along with constipation. Denies any vomiting. Patient presented to the ER this a.m. a chest x-ray was performed demonstrating cardiomegaly in the one obtained view. Given patient's respiratory distress was decided to admit her. She did receive a dose of Solu-Medrol and Rocephin. Her urinalysis did indicate possible urinary tract infection culture is pending. Dr. Perez was consulted to read a 2 -D echo to further evaluate the Possible cardiomegaly. Date of Admission Apr 13, 2016 at 10:03 I consulted on this patient on 04/13/16 21:06 Attending Physician Belia Reid DO Admitting Physician Michael Orosco MD Consult Dr. Perez Allergies and Home Medications Allergies Coded Allergies: hydromorphone (Verified Allergy, Mild, STRONG RASH, 10/28/06) Penicillins (Verified Allergy, Unknown, 10/28/06) Sulfa (Sulfonamide Antibiotics) (Verified Allergy, Unknown, 10/28/06) aspirin (Unverified Adverse Reaction, Mild, ASPIRIN SENSITIVE, 08/14/08) sumatriptan (Unverified Adverse Reaction, Mild, PALPITATIONS, 08/14/08) Home Medications Acetaminophen 325 Mg Tablet 650 MG PO Q6H PRN PRN FEVER (Reported) TAKES 2 (325MG) TABLETS Buspirone HCl 5 Mg Tablet 5 MG PO TID (Reported) Cetirizine HCl 10 Mg Tablet 10 MG PO BID PRN PRN ALLERGIES (Reported) Cyclobenzaprine HCl 10 Mg Tablet 10 MG PO TID PRN PRN MUSCLE SPASMS (Reported) Diphenhydramine HCl 25 Mg Tablet 50 MG PO DAILY PRN PRN ITCHING (Reported) TAKES 2 (25MG) TABLETS Gabapentin 300 Mg Capsule 300 MG PO BID (Reported) Glimepiride 2 Mg Tablet 2 MG PO BID (Reported) Ipratropium/Albuterol Sulfate 3 Ml Ampul.neb 3 ML NEB Q4H PRN PRN SHORTNESS OF BREATH (Reported) Omeprazole 40 Mg Capsule.dr 40 MG PO BID (Reported) Pioglitazone HCl 30 Mg Tablet 30 MG PO DAILY (Reported) LAST FILLED #30 02-27-16 Pramipexole Di-HCl 1 Mg Tablet 1 MG PO 1800 (Reported) Propranolol HCl 40 Mg Tablet 40 MG PO BID (Reported) Tolterodine Tartrate 4 Mg Cap.er.24h 4 MG PO BID (Reported) Past Hgiyilp-Oohqcn-Gszceh Hx Patient Social History Marrital Status: Alcohol Use: Denies Use Recreational Drug Use: No Smoking Status: Never a Smoker Physical Abuse Screen: No Sexual Abuse: No Recent Foreign Travel: No Contact w/other who traveled: No Recent Hopitalizations: No Recent Infectious Disease Expo: No Immunizations Up To Date Tetanus Booster (TDap): Unknown Date of Pneumonia Vaccine: May 24, 2012 Date of Influenza Vaccine: Jan 25, 2016 Seasonal Allergies Seasonal Allergies: No Surgeries HX Surgeries: Yes Surgeries: Abdominal, Appendectomy, Cardiac, Defibrillator, Gallbladder, Hysterectomy, Oophorectomy, Pacemaker, Tonsillectomy Respiratory Hx Respiratory Disorders: Yes (COPD) Cardiovascular Hx Cardiovascular Disorders: Yes (HX CARDIAC ARREST DURING ENT SURGERY, PACER/ ICD) Cardiac Disorders: Irregular Heartbeat Neurological Hx Neurological Disorders: Yes (PERIPHERAL NEUROPATHY) Neurological Disorders: Headaches /Migraines, Neuropathy 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 System Hx 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 Disorders: No Sexually Transmitted Disease: No Female 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 Disorders: Denies Genitourinary Hx Genitourinary Disorders: Yes (RIGHT INTRARENAL STONE) Genitourinary Disorders: Kidney Infection, Bladder Infection, Kidney Stones, UTI-Chronic Gastrointestinal Hx Gastrointestinal Disorders: Yes (c-diff in march 2015) Gastrointestinal Disorders: Gastroesophageal Reflux, Diverticulosis, C-Diff, Hiatal Hernia, Ulcer, Gall Bladder Disease, Irritable Bowel Musculoskeletal Hx Musculoskeletal Disorders: Yes (RESTLESS LEG SYNDROME) Musculoskeletal Disorders: Degenerate Disk Disease, Arthritis, Fibromyalgia Endocrine Hx Endocrine Disorders: Yes Endocrine Disorders: Diabetes, Non-Insulin dep HEENT HX ENT Disorders: Yes HEENT Disorders: Cataract Loss of Vision: Denies Hearing Impairment: Denies Cancer Hx Cancer: No Psychosocial Hx Psychiatric Problems: Yes Behavioral Health Disorders: Anxiety, Depression Integumentary HX Skin/Integumentary Disorder: Yes Skin/Integumentary Disorders: Pruritis Blood Transfusions Hx Blood Disorders: No Adverse Reaction to a Blood Tr: No Family Medical History Family Hx: Alzheimer's disease 19 FATHER Cardiovascular disease 19 FATHER 19 MOTHER Completed stroke 19 MOTHER Hypertension 19 FATHER 19 MOTHER Myocardial infarction 19 FATHER 19 MOTHER No Family History of: Diabetes mellitus Constitutional: chills fever weakness EENTM: No blurred vision, No double vision, No ear pain Respiratory: cough dyspnea on exertionNo hemoptysis, short of breath stridor wheezing Gastrointestinal: No abdominal pain, constipationNo diarrhea Genitourinary: No decreased output, dysuria frequency : No Musculoskeletal: back painNo joint pain Skin: No change in color, No change in hair/nails Psychiatric/Neurological: Denies Anxiety, Denies Emotional Problems Physical Exam Vital Signs Vital Sign - Last 12Hours 04/13/16 04/13/16 04/13/16 07:55 08:04 12:00 Temp 97.2 Pulse 70 Resp 18 B/P 104/78 Pulse Ox 98 O2 Delivery Nasal Cannula O2 Flow Rate 2 Capillary Refill : Less Than 3 Seconds General Appearance: Mild Distress (respiratory) HEENT: PERRL/EOMI Neck: Non Tender Supple Respiratory: Chest Non Tender Lungs Clear (relatively)No Crackles, Decreased Breath Sounds (bases)No Stridor, Wheezing (occasional) Other (upper respiratory rattle with coughing) Cardiovascular: Regular Rate, Rhythm No Edema (trace) Gastrointestinal: Normal Bowel Sounds Non Tender Soft Rectal: Deferred Back: No CVA Tenderness No Vertebral Tenderness Extremity: Normal Range of Motion Non Tender Neurologic/Psychiatric: Alert Oriented x3 Skin: Warm/Dry Other (extensive seborrheic keratosis on back belly) Assessment/Plan Assessment and Plan 70 yo F Dyspnea- 2-D ECHO- Dr. Perez consulted to read and make recommendations. Review of e-chart- pt had an echo by Dr. Cerda in January 2016 with 55-60% LVEF. BNP nml. troponin neg COPD Exacerbation- methylprednisolone 40mg q6hr IV, MAT protocol, accapella device Headache- toradol 15mg IV (this is what usually aborts them) max dose of 5 over the next couple days. UTI without hematuria- w/ dysuria and back pain- rocephin 1 g, culture pending pt has recurrent uti- would not be surprised if she has multiresistant bacteria. HTN- propranolol 40mg DMII- accuchecks, SSI continue sulfonylurea Obesity- encourage healthy diet and exercise extensive seborrheic keratosis- monitor, consider internal malignancy? h/o hepatic steatosis- monitor, not currently an issue dvt ppx: lovenox Dispo: monitor respiratory status, await urine culture Clinical Quality Measures DVT/VTE Risk/Contraindication: Risk Factor Score Per Nursin RFS Level Per Nursing on Admit: 4+=Very High Copy Copies To 1: BELIA REID CHAD C MD Apr 13, 2016 21:09
[2016-04-13] MEDS ORDERED: NON-FORMULARY MEDICATION 1 EA EA (Diphenhydramine HCl 50 MG) PO PRN (23:00)
[2016-04-13] MEDS ORDERED: NON-FORMULARY MEDICATION 1 EA EA (Cetirizine HCl 10 MG) PO PRN (23:00)
[2016-04-13] MEDS: ENOXAPARIN 40 MG/0.4 ML (LOVENOX) SYR SC SCH (23:44)
[2016-04-13] MEDS ORDERED: LORATADINE (CLARITIN) 10 MG TAB PO PRN (23:45)
[2016-04-13] MEDS ORDERED: diphenhydrAMINE 25 MG TAB (BENADRYL) PO PRN (23:45)
[2016-04-13] MEDS ORDERED: GABAPENTIN 300 MG (NEURONTIN) CAP ONE (23:46)
[2016-04-13] MEDS ORDERED: PRAMIPEXOLE 0.125 MG (MIRAPEX) TABLET ONE (23:47)
[2016-04-13] MEDS: GABAPENTIN 300 MG (NEURONTIN) CAP PO SCH (23:51)
[2016-04-14] VITALS (8 sets, daily range): BP systolic 120–191; BP diastolic 58–85
[2016-04-14] MEDS: NS IV 1000 ML 1,000 ML IV SCH ×2 (01:21→15:05)
[2016-04-14] MEDS: RT-ALBUTEROL/IPRATROPIUM 3 ML (DUONEB) VIAL IH SCH ×2 (02:46→06:34)
[2016-04-14] MEDS: PANTOPRAZOLE 40 MG (PROTONIX) TAB PO SCH ×2 (06:11→15:22)
[2016-04-14] MEDS: methylPREDNISolone 125 MG (Solu-MEDROL) VIAL IV SCH (06:11)
[2016-04-14] MEDS: inSUlin (REGULAR) HUMAN 1 UNIT/0.01 ML (CHARGE PER UNIT) SC SCH ×4 (06:11→23:20)
[2016-04-14] MEDS ORDERED: RT-SODIUM CHL INHALATION 3 ML VIAL ONE ×4 (06:44→22:26)
[2016-04-14] MEDS ORDERED: RT-epiNEPHrine (RACEMIC) 2.25% 0.5 ML VIAL ONE (06:44)
[2016-04-14] MEDS: GLIMEPIRIDE 2 MG (AMARYL) TAB PO SCH ×2 (08:00→23:19)
[2016-04-14] MEDS: GABAPENTIN 300 MG (NEURONTIN) CAP PO SCH ×2 (08:00→23:19)
[2016-04-14] MEDS: PROPRANOLOL 20 MG (INDERAL) TABLET PO SCH ×2 (08:00→23:19)
[2016-04-14] MEDS: busPIRone 5 MG (BUSPAR) TAB PO SCH ×3 (08:00→23:20)
[2016-04-14] MEDS: TOLTERODINE LA 4 MG (DETROL) CAP PO SCH ×2 (08:00→23:19)
[2016-04-14] MEDS: KETOROLAC 15 MG/ML VIAL IVP PRN (08:01)
[2016-04-14] MEDS ORDERED: cefTRIAXone INJECTION 1,000 MG in NS (IVPB) 50 ML IV SCH (09:00)
[2016-04-14] MEDS ORDERED: NON-FORMULARY MEDICATION 1 EA EA (Omeprazole 40 MG) PO SCH (09:00)
[2016-04-14] MEDS: RT-ALBUTEROL/IPRATROPIUM 3 ML (DUONEB) VIAL INH SCH ×4 (10:00→20:55)
[2016-04-14] MEDS: RT-epiNEPHrine (RACEMIC) 2.25% 0.5 ML VIAL INH PRN ×4 (10:14→22:28)
[2016-04-14] MEDS: methylPREDNISolone 40 MG/ML (Solu-MEDROL) VIAL IV SCH ×3 (12:18→23:20)
--- NOTE | 2016-04-14 13:05 | Progress Note (SOAP) ---
Subjective Subjective/Events-last exam 70 yo F admitted for dyspnea, stridor- pt reports not much improvement. Still has urinary symptoms- also complains of stridor difficulty breathing that resolved with solumedrol or racemic epi. Feels like her breathing trouble is her neck up and not much in her lungs. Review of Systems General: No Chills, No Night Sweats HEENT: Head Aches Pulmonary: Dyspnea Cough Cardiovascular: No: Chest Pain, Palpitations Gastrointestinal: : Abdominal PainNo: Nausea, Vomiting Genitourinary: Dysuria Musculoskeletal: No: neck pain Neurological: : Weakness Objective Exam Vital Signs Date Time Temp Pulse Resp B/P Pulse Ox O2 Delivery O2 Flow Rate FiO2 04/14/16 10:17 95 2.50 04/14/16 07:05 78 20 150/76 96 Nasal Cannula 2.00 04/14/16 06:50 74 22 157/77 96 Nasal Cannula 2.00 04/14/16 06:48 2.50 04/14/16 06:38 94 2.50 04/14/16 06:35 71 24 191/85 95 Nasal Cannula 71.00 2.00 04/14/16 04:24 98.9 79 21 141/61 93 3.00 04/14/16 02:46 96 2.00 04/14/16 00:00 96.9 85 19 136/67 94 Nasal Cannula 3.00 04/13/16 20:10 98.0 88 22 131/74 95 Nasal Cannula 2.00 04/13/16 20:00 93 2.00 04/13/16 20:00 Nasal Cannula 2.00 04/13/16 16:28 Room Air 04/13/16 15:35 98.2 79 18 146/83 95 Nasal Cannula 2.00 04/13/16 14:25 93 2 I & O 04/14/16 07:00 Intake Total 2200 ml Output Total 1600 ml Balance 600 ml Capillary Refill : Less Than 3 Seconds General Appearance: Mild Distress HEENT: PERRL/EOMI Neck: Non Tender Supple Respiratory: Chest Non Tender No Accessory Muscle Use Decreased Breath Sounds (bases) Rhonci Other (left chest pacemaker) Cardiovascular: Regular Rate, Rhythm Gastrointestinal: non tender soft Extremity: Normal Capillary Refill Non Tender Pedal Edema (trace) Neurologic/Psychiatric: Alert Oriented x3 Skin: Warm/Dry Results Lab Laboratory Tests 04/13/16 16:44: Glucometer 241H 04/13/16 20:40: Glucometer 382H 04/14/16 05:35: Glucometer 260H 04/14/16 11:28: Glucometer 319H Microbiology 04/13/16 Urine Culture - Preliminary, Resulted Probable Enterococcus Species Assessment/Plan Assessment/Plan Assess & Plan/Chief Complaint 70 yo F Dyspnea- Review of e-chart- pt had an echo by Dr. Cerda in January 2016 with 55-60% LVEF. BNP nml. troponin neg Also has a pacemaker left chest COPD Exacerbation- methylprednisolone 40mg q6hr IV, MAT protocol, accapella device Stridor- has seen Dr. Medrano and went through - for dysphonia- resolved with racemic epi or solumedrol. Headache- toradol 15mg IV (this is what usually aborts them) max dose of 5 over the next couple days. UTI without hematuria- w/ dysuria and back pain- rocephin 1 g, culture pending pt has recurrent utis HTN- propranolol 40mg DMII- accuchecks, SSI continue sulfonylurea Obesity- encourage healthy diet and exercise extensive seborrheic keratosis on her back- monitor, consider internal malignancy? h/o hepatic steatosis- monitor, not currently an issue dvt ppx: lovenox Dispo: monitor respiratory status, await urine culture Diagnosis/Problems: Clinical Quality Measures DVT/VTE Risk/Contraindication: Risk Factor Score Per Nursin RFS Level Per Nursing on Admit: 4+=Very High KARLEE WATERMAN MD Apr 14, 2016 1:05 pm
[2016-04-14] MEDS ORDERED: NON-FORMULARY MEDICATION 1 EA EA (Pramipexole Di-HCl (Pramipexole Dihydrochloride) 1 MG) PO SCH (18:00)
--- NOTE | 2016-04-14 18:54 | Diagnostic Imaging Report ---
INDICATION: Stridor, wheezing. COMPARISON: None. FINDINGS: 2 soft tissue views of the neck demonstrate normal tracheal air column. Prevertebral soft tissues are normal. There is no abnormal gas collection. Osseous structures are age-appropriate. There is no foreign body. IMPRESSION: Negative soft tissue views of the neck. Dictated by: Dictated on workstation # [id number]
[2016-04-14] MEDS ORDERED: PRAMIPEXOLE 0.5 MG TAB (MIRAPEX) PO SCH (21:00)
[2016-04-14] MEDS ORDERED: LIDOCAINE PF 1% 2 ML AMP ONE (23:02)
[2016-04-14] MEDS: LEVOFLOXACIN 750 MG/150 ML IV 150 ML IV SCH (23:20)
[2016-04-14] MEDS: ENOXAPARIN 40 MG/0.4 ML (LOVENOX) SYR SC SCH (23:20)
[2016-04-15] VITALS: BP 135/64
[2016-04-15] MEDS: RT-ALBUTEROL/IPRATROPIUM 3 ML (DUONEB) VIAL INH SCH ×7 (01:58→22:45)
[2016-04-15 04:00] VITALS: BP 129/83
[2016-04-15] MEDS: inSUlin (REGULAR) HUMAN 1 UNIT/0.01 ML (CHARGE PER UNIT) SC SCH ×4 (06:00→21:33)
[2016-04-15 06:22] LABS: BASOPHILS % (AUTO) 0 % (0-10); EOSINOPHILS % (AUTO) 0 % (0-10); LYMPHOCYTES # (AUTO) 1.2 X 10^3 (1.0-4.0); LYMPHOCYTES % (AUTO) 7 % (12-44); MEAN CORPUSCULAR HEMOGLOBIN 30 PG (25-34); MEAN CORPUSCULAR HGB CONC 34 G/DL (32-36); MEAN CORPUSCULAR VOLUME 90 FL (80-99); MEAN PLATELET VOLUME 9.7 FL (7.4-10.4); MONOCYTES # (AUTO) 0.5 X 10^3 (0.0-1.0); MONOCYTES % (AUTO) 3 % (0-12); NEUTROPHILS # (AUTO) 14.7 X 10^3 (1.8-7.8); NEUTROPHILS % (AUTO) 90 % (42-75); PLATELET COUNT 287 10^3/uL (130-400); RED BLOOD COUNT 4.41 10^6/uL (4.35-5.85); RED CELL DISTRIBUTION WIDTH 12.9 % (10.0-14.5); WHITE BLOOD COUNT 16.4 10^3/uL (4.3-11.0)
[2016-04-15 06:37] LABS: ALBUMIN 3.5 G/DL (3.2-4.5); ANION GAP 12 MMOL/L (5-14); BLOOD UREA NITROGEN 17 MG/DL (7-18); BUN/CREATININE RATIO 22; CALCIUM 8.6 MG/DL (8.5-10.1); CARBON DIOXIDE 21 MMOL/L (21-32); CHLORIDE 106 MMOL/L (98-107); CREATININE SERUM 0.76 MG/DL (0.60-1.30); GFR ESTIMATED > 60; GLUCOSE 181 MG/DL (70-105); PHOSPHORUS 2.8 MG/DL (2.3-4.7); POTASSIUM 3.7 MMOL/L (3.6-5.0); SODIUM 139 MMOL/L (135-145)
[2016-04-15] MEDS: RT-epiNEPHrine (RACEMIC) 2.25% 0.5 ML VIAL INH PRN ×5 (06:38→20:46)
[2016-04-15] MEDS: PANTOPRAZOLE 40 MG (PROTONIX) TAB PO SCH ×2 (06:58→16:03)
[2016-04-15] MEDS: methylPREDNISolone 40 MG/ML (Solu-MEDROL) VIAL IV SCH ×3 (06:58→21:33)
[2016-04-15] MEDS: NS IV 1000 ML 1,000 ML IV SCH ×3 (06:58→23:31)
[2016-04-15 07:04] LABS: LYMPHOCYTES % (MANUAL) 3 %; NEUTROPHILS % (MANUAL) 95 %
[2016-04-15 08:00] VITALS: BP 135/94
[2016-04-15] MEDS: LEVOFLOXACIN 750 MG/150 ML IV 150 ML IV SCH (09:16)
[2016-04-15] MEDS: TOLTERODINE LA 4 MG (DETROL) CAP PO SCH ×2 (09:19→21:32)
[2016-04-15] MEDS: GABAPENTIN 300 MG (NEURONTIN) CAP PO SCH ×2 (09:19→21:33)
[2016-04-15] MEDS: GLIMEPIRIDE 2 MG (AMARYL) TAB PO SCH ×2 (09:19→21:33)
[2016-04-15] MEDS: PROPRANOLOL 20 MG (INDERAL) TABLET PO SCH ×2 (09:19→21:33)
[2016-04-15] MEDS: busPIRone 5 MG (BUSPAR) TAB PO SCH ×3 (09:19→21:33)
[2016-04-15] MEDS ORDERED: DEXAMETHASONE 4 MG/ML SDV (DECADRON) ONE (10:11)
[2016-04-15] MEDS ORDERED: RT-ALBUTEROL SULF 2.5 MG/3 ML PRE-MIX VIAL ONE (10:19)
--- NOTE | 2016-04-15 11:03 | Progress Note (SOAP) ---
Subjective Subjective/Events-last exam 70 yo F with stridor and UTI Stridor still not improving per the pt. No interventions this far have helped. Ate most of her breakfast without difficulty. Pt unsure if her UTI is improving since she has them so frequently. Review of Systems General: No Chills, No Night Sweats HEENT: Head Aches Pulmonary: Dyspnea (stridor) Cardiovascular: No: Chest Pain, Palpitations Gastrointestinal: No: Nausea, Vomiting Genitourinary: Dysuria Frequency Musculoskeletal: : neck painNo: shoulder pain Neurological: : Weakness Objective Exam Vital Signs Date Time Temp Pulse Resp B/P Pulse Ox O2 Delivery O2 Flow Rate FiO2 04/15/16 10:20 93 6.00 30 04/15/16 09:26 93 6.00 30 04/15/16 08:00 97.5 69 26 135/94 99 Face Tent 10.00 04/15/16 06:42 93 6.00 30 04/15/16 06:40 93 6.00 30 04/15/16 04:00 98.4 68 18 129/83 98 Room Air 04/15/16 01:58 Face Tent 35 04/15/16 01:58 90 6.00 30 04/15/16 00:00 96.2 74 18 135/64 94 Face Tent 30.00 04/14/16 23:06 94 6.00 30 04/14/16 22:31 92 6.00 30 04/14/16 21:00 98.1 80 20 129/59 96 Face Tent 30.00 04/14/16 20:56 95 6.00 35 04/14/16 20:56 Face Tent 30 04/14/16 20:00 Face Tent 35 04/14/16 18:50 95 6.00 35 04/14/16 18:39 97 2.50 04/14/16 18:15 95 2.50 04/14/16 16:00 97.2 78 18 120/58 94 Nasal Cannula 3.00 04/14/16 14:53 91 2.50 04/14/16 13:34 2.50 04/14/16 12:00 98.7 94 18 130/77 92 Nasal Cannula 3.00 I & O 04/15/16 07:00 Intake Total 1840 ml Output Total 2800 ml Balance -960 ml Capillary Refill : Less Than 3 Seconds General Appearance: Anxious Mild Distress HEENT: PERRL/EOMI Neck: Non Tender Supple Respiratory: Chest Non Tender Lungs Clear Normal Breath Sounds Stridor ( psychogenic? NO RETRACTIONS) Cardiovascular: Regular Rate, Rhythm Gastrointestinal: normal bowel sounds non tender soft Extremity: Non Tender No Calf Tenderness Neurologic/Psychiatric: Alert Oriented x3 Skin: Warm/Dry Results Lab Laboratory Tests 04/14/16 11:28: Glucometer 319H 04/14/16 16:16: Glucometer 328H 04/14/16 21:55: Glucometer 298H 04/15/16 06:01: Glucometer 178H 04/15/16 06:15: Albumin 3.5, Anion Gap 12, BUN/Creatinine Ratio 22, Band Neutrophils , Basophils # (Auto) 0.0, Basophils (%) (Auto) 0, Blood Morphology Comment NORMAL , Blood Urea Nitrogen 17, Calcium Level 8.6, Carbon Dioxide Level 21, Chloride Level 106, Creatinine 0.76, Eosinophils # (Auto) 0.0, Eosinophils (%) (Auto) 0, Estimat Glomerular Filtration Rate > 60, Glucose Level 181H, Hematocrit 40, Hemoglobin 13.3, Lymphocytes # (Auto) 1.2, Lymphocytes % (Manual) 3, Lymphocytes (%) (Auto) 7L, Mean Corpuscular Hemoglobin 30, Mean Corpuscular Hemoglobin Concent 34, Mean Corpuscular Volume 90, Mean Platelet Volume 9.7, Monocytes # (Auto) 0.5, Monocytes % (Manual) 2, Monocytes (%) (Auto) 3, Neutrophils # (Auto) 14.7H, Neutrophils % (Manual) 95, Neutrophils (%) (Auto) 90H, Phosphorus Level 2.8, Platelet Count 287, Potassium Level 3.7, Red Blood Count 4.41, Red Cell Distribution Width 12.9, Sodium Level 139, White Blood Count 16.4H Microbiology 04/13/16 Urine Culture - Preliminary, Resulted Streptococcus Species Assessment/Plan Assessment/Plan Assess & Plan/Chief Complaint 70 yo F Stridor- has seen Dr. 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 Dyspnea- improved Review of e-chart- pt had an echo by Dr. Cerda in January 2016 with 55-60% LVEF. BNP nml. troponin neg Also has a pacemaker left chest COPD Exacerbation- improved- methylprednisolone 40mg q6hr IV titrating to q8hr , MAT protocol, accapella device Headache- toradol 15mg IV (this is what usually aborts them) max dose of 5 over the next couple days. UTI without hematuria- w/ dysuria and back pain- rocephin 1 g, culture looks like streptococcus- prelim report 04/14/16 said enterococcus (but this was changed today to strep) so levofloxacin was added. Will see what C/S shows. pt has recurrent utis HTN- propranolol 40mg DMII- accuchecks, SSI continue sulfonylurea Obesity- encourage healthy diet and exercise extensive seborrheic keratosis on her back- monitor, consider internal malignancy? h/o hepatic steatosis- monitor, not currently an issue dvt ppx: lovenox Dispo: monitor respiratory status, await final urine culture - current biggest issue for pt is her stridor- no interventions thusfar have been effective (solumedrol, racemic epi, lidocaine inhaled, cool mist, duoneb, inhaled dexamethasone)- -she does have a erythematous pharynx, but epiglottis is not visualized on exam , neck xray benign, makes me think it is in part psychogenic stridor because she is able to talk without stridor. Pt refused Dr. Saleem to be consulted- because last time he told her she would liking go to a [facility] (per pt) Diagnosis/Problems: Clinical Quality Measures DVT/VTE Risk/Contraindication: Risk Factor Score Per Nursin RFS Level Per Nursing on Admit: 4+=Very High KARLEE WATERMAN MD Apr 15, 2016 11:03
--- NOTE | 2016-04-15 11:26 | ECHOCARDIOGRAPHY REPORT ---
PROCEDURE PHYSICIAN: NISHANT VALLEJO DATE OF PROCEDURE: 04/13/2016 TWO DIMENSIONAL ECHOCARDIOGRAM REPORT PRIMARY PHYSICIAN: OTHER PHYSICIAN: REFERRING PHYSICIAN: Dr. Reid ORDERING PHYSICIAN: INDICATION FOR THE PROCEDURE: Shortness of breath. MEASUREMENTS DERIVED VALUES LV DIAMETER (LAX) NORMALS NORMALS Diastolic 4.7 (3.6-5.2) Eject. Fract. 60% (60%+/-6%) Systolic (2.3-3.9) Diastolic Vol. % Shortening (0.22-0.42) Systolic Vol. Aortic Root IVS THICKNESS Diastolic 1. (0.6-1.1) LVPW THICKNESS Diastolic 1. (0.6-1.1) LA DIAMETER Systolic 4. (2.1-3.7) FINDINGS: 1. Technical quality is good. 2. The left ventricle is normal in size with normal contractility. Systolic function appeared to be normal. Estimated ejection fraction 60%. Diastolic dysfunction is suggested by Doppler. 3. The left atrium is in the upper normal limit. No clot or thrombus were seen within the left atrium. 4. The right atrium and right ventricle are normal in size. No clot or thrombus were seen within the right side. 5. Mitral valve is normal in morphology with mild mitral regurgitation noted by color Doppler flow. No mitral valve prolapse. No mitral valve stenosis. 6. Aortic valve is trileaflet with normal opening and closing pattern. No significant aortic stenosis or regurgitation was seen. 7. Tricuspid valve is normal in morphology with mild tricuspid regurgitation noted by color Doppler flow. Doppler across tricuspid valve estimated pulmonary artery pressure of 25+ right atrial pressure. 8. Pulmonic valve is functioning normally. 9. No pericardial effusion. CONCLUSION: 1. Normal left ventricular size and systolic function. Estimated ejection fraction 60%. Diastolic dysfunction is suggested by Doppler. 2. Left atrium is in the upper normal limits. 3. Mild mitral and tricuspid regurgitation. 4. Estimated pulmonary artery pressure of 35 mmHg Job ID: [id number] Dictated Date: 04/14/2016 08:28:16 Recordist Chief Date: 04/15/2016 11:22:02 / aldo
[2016-04-15] MEDS: cefTRIAXone INJECTION 1,000 MG in NS (IVPB) 50 ML IV SCH (11:53)
[2016-04-15 12:00] VITALS: BP 177/80
[2016-04-15 16:00] VITALS: BP 163/80
[2016-04-15] MEDS ORDERED: LORazepam INJ 2 MG/ML (ATIVAN) VIAL IVP ONE (16:30)
[2016-04-15] MEDS ORDERED: PRAMIPEXOLE 0.125 MG (MIRAPEX) TABLET ONE (18:26)
[2016-04-15] MEDS: PRAMIPEXOLE 0.5 MG TAB (MIRAPEX) PO SCH (18:33)
[2016-04-15] MEDS: RT-ALBUTEROL/IPRATROPIUM 3 ML (DUONEB) VIAL INH PRN (19:00)
[2016-04-15 20:00] VITALS: BP 121/56
[2016-04-15] MEDS: ENOXAPARIN 40 MG/0.4 ML (LOVENOX) SYR SC SCH (21:33)
[2016-04-15] MEDS: LORazepam INJ 2 MG/ML (ATIVAN) VIAL IVP PRN (21:44)
[2016-04-16] VITALS: BP 144/82
[2016-04-16] MEDS: RT-ALBUTEROL/IPRATROPIUM 3 ML (DUONEB) VIAL INH SCH ×6 (02:45→23:07)
[2016-04-16] MEDS: RT-epiNEPHrine (RACEMIC) 2.25% 0.5 ML VIAL INH PRN (02:50)
[2016-04-16 04:00] VITALS: BP 138/69
[2016-04-16] MEDS: LORazepam INJ 2 MG/ML (ATIVAN) VIAL IVP PRN ×2 (04:51→23:21)
[2016-04-16 04:59] LABS: BASOPHILS % (AUTO) 0 % (0-10); EOSINOPHILS % (AUTO) 0 % (0-10); LYMPHOCYTES # (AUTO) 0.8 X 10^3 (1.0-4.0); LYMPHOCYTES % (AUTO) 7 % (12-44); MEAN CORPUSCULAR HEMOGLOBIN 30 PG (25-34); MEAN CORPUSCULAR HGB CONC 34 G/DL (32-36); MEAN CORPUSCULAR VOLUME 89 FL (80-99); MEAN PLATELET VOLUME 10.1 FL (7.4-10.4); MONOCYTES # (AUTO) 0.4 X 10^3 (0.0-1.0); MONOCYTES % (AUTO) 4 % (0-12); NEUTROPHILS % (AUTO) 89 % (42-75); PLATELET COUNT 262 10^3/uL (130-400); RED BLOOD COUNT 4.33 10^6/uL (4.35-5.85); RED CELL DISTRIBUTION WIDTH 12.9 % (10.0-14.5); WHITE BLOOD COUNT 11.3 10^3/uL (4.3-11.0)
[2016-04-16 05:19] LABS: ANION GAP 11 MMOL/L (5-14); BLOOD UREA NITROGEN 18 MG/DL (7-18); BUN/CREATININE RATIO 21; CALCIUM 8.5 MG/DL (8.5-10.1); CARBON DIOXIDE 22 MMOL/L (21-32); CHLORIDE 106 MMOL/L (98-107); CREATININE SERUM 0.84 MG/DL (0.60-1.30); GFR ESTIMATED > 60; GLUCOSE 226 MG/DL (70-105); POTASSIUM 3.7 MMOL/L (3.6-5.0); SODIUM 139 MMOL/L (135-145)
[2016-04-16] MEDS: methylPREDNISolone 40 MG/ML (Solu-MEDROL) VIAL IV SCH (05:31)
[2016-04-16] MEDS: PANTOPRAZOLE 40 MG (PROTONIX) TAB PO SCH ×2 (05:31→16:33)
[2016-04-16] MEDS: inSUlin (REGULAR) HUMAN 1 UNIT/0.01 ML (CHARGE PER UNIT) SC SCH ×4 (05:32→22:02)
[2016-04-16 08:00] VITALS: BP 107/61
[2016-04-16] MEDS: GLIMEPIRIDE 2 MG (AMARYL) TAB PO SCH ×2 (09:53→21:07)
[2016-04-16] MEDS: GABAPENTIN 300 MG (NEURONTIN) CAP PO SCH ×2 (09:53→21:06)
[2016-04-16] MEDS: LORazepam 0.5 MG (ATIVAN) TABLET PO SCH ×3 (09:53→21:07)
[2016-04-16] MEDS: predniSONE 20 MG TAB PO SCH ×2 (09:53→21:06)
[2016-04-16] MEDS: PROPRANOLOL 20 MG (INDERAL) TABLET PO SCH ×2 (09:53→21:07)
[2016-04-16] MEDS: TOLTERODINE LA 4 MG (DETROL) CAP PO SCH ×2 (09:53→21:07)
[2016-04-16] MEDS: busPIRone 5 MG (BUSPAR) TAB PO SCH ×3 (09:54→21:06)
[2016-04-16] MEDS: cefTRIAXone INJECTION 1,000 MG in NS (IVPB) 50 ML IV SCH (09:54)
[2016-04-16 12:00] VITALS: BP 155/87
[2016-04-16] MEDS: NS IV 1000 ML 1,000 ML IV SCH (15:48)
[2016-04-16 16:00] VITALS: BP 130/61
[2016-04-16] MEDS: PRAMIPEXOLE 0.5 MG TAB (MIRAPEX) PO SCH (17:44)
[2016-04-16 20:00] VITALS: BP 157/71
--- NOTE | 2016-04-16 21:29 | Progress Note (SOAP) ---
Subjective Subjective/Events-last exam Fwup stridor, COPD exacerbation, UTI, Diabetes mellitus II, Hypertension, Migraine. Still with stridor but did not respond to any respiratory modalities including racemic epinephrine, inhaled dexamethasone, lidocaine, solumedrol, duoneb, and has had extensive workup with ENT and ST in past as well. The only thing patient's stridor responded to was IV ativan. Objective Exam Vital Signs Date Time Temp Pulse Resp B/P Pulse Ox O2 Delivery O2 Flow Rate FiO2 04/16/16 18:33 94 10.00 35 04/16/16 16:00 97.9 63 22 130/61 97 Face Tent 35.00 04/16/16 13:15 92 04/16/16 12:00 97.2 73 20 155/87 97 Face Tent 35.00 04/16/16 10:00 92 10.00 35 04/16/16 08:00 97.1 79 20 107/61 99 Face Tent 35.00 04/16/16 08:00 99 Face Tent 6.00 04/16/16 06:16 97 10.00 35 04/16/16 04:00 98.1 69 18 138/69 99 Face Tent 35.00 04/16/16 02:50 10.00 35 04/16/16 02:45 94 10.00 35 04/16/16 00:00 97.6 67 18 144/82 97 Face Tent 35.00 04/15/16 22:52 91 10.00 35 I & O 04/16/16 06:59 Intake Total 3120 ml Output Total 2000 ml Balance 1120 ml Capillary Refill : Less Than 3 SecondsLess Than 3 Seconds General Appearance: Mild Distress (stridorous but stops with conversation) Neck: Supple Respiratory: Lungs Clear Stridor Cardiovascular: Regular Rate, Rhythm Gallop/S3 Extremity: Non Tender No Calf Tenderness No Pedal Edema Neurologic/Psychiatric: Alert Oriented x3 Results Lab Laboratory Tests 04/16/16 04:25: Basophils # (Auto) 0.0, Basophils (%) (Auto) 0, Eosinophils # (Auto) 0.0, Eosinophils (%) (Auto) 0, Hematocrit 39, Hemoglobin 13.1, Lymphocytes # (Auto) 0.8L, Lymphocytes (%) (Auto) 7L, Mean Corpuscular Hemoglobin 30, Mean Corpuscular Hemoglobin Concent 34, Mean Corpuscular Volume 89, Mean Platelet Volume 10.1, Monocytes # (Auto) 0.4, Monocytes (%) (Auto) 4, Neutrophils # (Auto ) 10.0H, Neutrophils (%) (Auto) 89H, Platelet Count 262, Red Blood Count 4.33L, Red Cell Distribution Width 12.9, White Blood Count 11.3H 04/16/16 04:35: Anion Gap 11, BUN/Creatinine Ratio 21, Blood Urea Nitrogen 18, Calcium Level 8.5 , Carbon Dioxide Level 22, Chloride Level 106, Creatinine 0.84, Estimat Glomerular Filtration Rate > 60, Glucose Level 226H, Potassium Level 3.7, Sodium Level 139 04/16/16 11:22: Glucometer 237H 04/16/16 16:12: Glucometer 236H Microbiology 04/13/16 Urine Culture - Final, Complete Streptococcus Viridans Assessment/Plan Assessment/Plan Assess & Plan/Chief Complaint 1. Stridor--appears to be psychogenic--start routine ativan 2. COPD exacerbation--DC solumedrol and start oral prednisone 3. Diabetes mellitus II--on SSI 4. Hypertension/Tremor--back on propranolol 5. Migraine--stable 6. Anxiety--increase buspar dose 7. UTI with Strep viridans--DC Levaquin, continue rocephin Diagnosis/Problems: Clinical Quality Measures DVT/VTE Risk/Contraindication: Risk Factor Score Per Nursin RFS Level Per Nursing on Admit: 4+=Very High NANNETTE REVELES DO Apr 16, 2016 9:29 pm
[2016-04-16] MEDS: ENOXAPARIN 40 MG/0.4 ML (LOVENOX) SYR SC SCH (23:21)
[2016-04-17] VITALS: BP 132/57
[2016-04-17] MEDS: RT-ALBUTEROL/IPRATROPIUM 3 ML (DUONEB) VIAL INH SCH ×6 (02:10→22:05)
[2016-04-17 04:00] VITALS: BP 140/81
[2016-04-17] MEDS: NS IV 1000 ML 1,000 ML IV SCH (05:11)
[2016-04-17] MEDS: inSUlin (REGULAR) HUMAN 1 UNIT/0.01 ML (CHARGE PER UNIT) SC SCH ×4 (06:00→21:13)
[2016-04-17] MEDS: PANTOPRAZOLE 40 MG (PROTONIX) TAB PO SCH ×2 (06:13→17:02)
[2016-04-17] MEDS: LORazepam INJ 2 MG/ML (ATIVAN) VIAL IVP PRN (06:40)
[2016-04-17] MEDS: ACETAMINOPHEN 325 MG TABLET/CAPLET (TYLENOL) PO PRN (07:49)
[2016-04-17 08:00] VITALS: BP 138/75
[2016-04-17] MEDS: GLIMEPIRIDE 2 MG (AMARYL) TAB PO SCH ×2 (08:16→20:27)
[2016-04-17] MEDS: PROPRANOLOL 20 MG (INDERAL) TABLET PO SCH ×2 (08:16→20:27)
[2016-04-17] MEDS: predniSONE 20 MG TAB PO SCH ×2 (08:16→20:27)
[2016-04-17] MEDS: TOLTERODINE LA 4 MG (DETROL) CAP PO SCH ×2 (08:16→20:27)
[2016-04-17] MEDS: LORazepam 0.5 MG (ATIVAN) TABLET PO SCH ×3 (08:16→20:27)
[2016-04-17] MEDS: GABAPENTIN 300 MG (NEURONTIN) CAP PO SCH ×2 (08:16→20:26)
[2016-04-17] MEDS: cefTRIAXone INJECTION 1,000 MG in NS (IVPB) 50 ML IV SCH (08:17)
[2016-04-17] MEDS: busPIRone 5 MG (BUSPAR) TAB PO SCH ×3 (08:17→20:26)
[2016-04-17] MEDS ORDERED: KETOROLAC 30 MG/ML VIAL IVP NR (09:11)
[2016-04-17 12:00] VITALS: BP 144/76
[2016-04-17 16:00] VITALS: BP 144/71
[2016-04-17] MEDS: PRAMIPEXOLE 0.5 MG TAB (MIRAPEX) PO SCH (17:02)
--- NOTE | 2016-04-17 19:18 | Progress Note (SOAP) ---
Subjective Subjective/Events-last exam Fwup stridor, COPD exacerbation, UTI, Diabetes mellitus II, Hypertension, Migraine. C/O MCCORMICK this AM. Nursing reports had good day yesterday but not as good today since has MCCORMICK. Patient sleeping when I entered room with no stridor but started with stridor when awakened except when conversed and her stridor disappeared as well. Objective Exam Vital Signs Date Time Temp Pulse Resp B/P Pulse Ox O2 Delivery O2 Flow Rate FiO2 04/17/16 16:00 97.5 62 22 144/71 94 Face Tent 35.00 04/17/16 14:47 93 10.00 35 04/17/16 12:00 97.2 61 20 144/76 97 Face Tent 35.00 04/17/16 10:50 95 10.00 35 04/17/16 08:07 99 Face Tent 6.00 04/17/16 08:00 97.5 60 24 138/75 99 Face Tent 35.00 04/17/16 07:22 98 10.00 35 04/17/16 07:14 93 10.00 35 04/17/16 04:00 96.6 53 21 140/81 95 Face Tent 35.00 04/17/16 02:11 97 10.00 35 04/17/16 00:00 96.2 60 24 132/57 95 Face Tent 35.00 04/16/16 23:08 94 10.00 35 04/16/16 20:00 97.0 73 26 157/71 95 Face Tent 35.00 04/16/16 20:00 99 Face Tent 6.00 I & O 04/17/16 06:59 Intake Total 2990 ml Output Total 2600 ml Balance 390 ml Capillary Refill : Less Than 3 SecondsLess Than 3 Seconds General Appearance: Mild Distress (intermittent stridor) Respiratory: Stridor (intermittent) Cardiovascular: Regular Rate, Rhythm Gallop/S3 Gastrointestinal: normal bowel sounds non tender soft Extremity: Non Tender No Calf Tenderness No Pedal Edema Neurologic/Psychiatric: Alert Oriented x3 Results Lab Laboratory Tests 04/16/16 21:51: Glucometer 202H 04/17/16 06:16: Glucometer 140H 04/17/16 11:42: Glucometer 241H 04/17/16 16:01: Glucometer 172H Microbiology 04/13/16 Urine Culture - Final, Complete Streptococcus Viridans Assessment/Plan Assessment/Plan Assess & Plan/Chief Complaint 1. Stridor--appears to be psychogenic--cont routine ativan, up to chair and ambulate today 2. COPD exacerbation--improved, continue oral prednisone 3. Diabetes mellitus II--on SSI 4. Hypertension/Tremor--back on propranolol 5. Migraine--toradol given 6. Anxiety--increased buspar dose yesterday 7. UTI with Strep viridans-- continue rocephin Diagnosis/Problems: Clinical Quality Measures DVT/VTE Risk/Contraindication: Risk Factor Score Per Nursin RFS Level Per Nursing on Admit: 4+=Very High NANNETTE REVELES DO Apr 17, 2016 7:18 pm
[2016-04-17 20:00] VITALS: BP 138/69
[2016-04-17] MEDS: ENOXAPARIN 40 MG/0.4 ML (LOVENOX) SYR SC SCH (22:59)
[2016-04-18] VITALS: BP 125/78
[2016-04-18] MEDS: RT-ALBUTEROL/IPRATROPIUM 3 ML (DUONEB) VIAL INH SCH ×6 (02:27→21:40)
[2016-04-18 04:00] VITALS: BP 133/94
[2016-04-18] MEDS: inSUlin (REGULAR) HUMAN 1 UNIT/0.01 ML (CHARGE PER UNIT) SC SCH ×4 (06:00→20:53)
[2016-04-18] MEDS: PANTOPRAZOLE 40 MG (PROTONIX) TAB PO SCH ×2 (06:25→17:55)
[2016-04-18 08:00] VITALS: BP 132/57
[2016-04-18] MEDS: TOLTERODINE LA 4 MG (DETROL) CAP PO SCH ×2 (09:29→20:51)
[2016-04-18] MEDS: LORazepam 0.5 MG (ATIVAN) TABLET PO SCH ×3 (09:29→20:51)
[2016-04-18] MEDS: GLIMEPIRIDE 2 MG (AMARYL) TAB PO SCH ×2 (09:29→20:51)
[2016-04-18] MEDS: PROPRANOLOL 20 MG (INDERAL) TABLET PO SCH ×2 (09:29→20:51)
[2016-04-18] MEDS: predniSONE 20 MG TAB PO SCH ×2 (09:31→20:51)
[2016-04-18] MEDS: GABAPENTIN 300 MG (NEURONTIN) CAP PO SCH ×2 (09:31→20:51)
[2016-04-18] MEDS: busPIRone 5 MG (BUSPAR) TAB PO SCH ×3 (09:31→20:51)
[2016-04-18] MEDS: cefTRIAXone INJECTION 1,000 MG in NS (IVPB) 50 ML IV SCH (09:33)
[2016-04-18] MEDS: KETOROLAC 15 MG/ML VIAL IVP PRN (11:44)
[2016-04-18 12:00] VITALS: BP 146/72
[2016-04-18 16:00] VITALS: BP 169/72
--- NOTE | 2016-04-18 17:51 | Progress Note (SOAP) ---
Subjective Subjective/Events-last exam Fwup stridor, COPD exacerbation, UTI, Diabetes mellitus II, Hypertension, Migraine. Once again, no stridor with conversation. Did not get up and ambulate yesterday as instructed. Objective Exam Vital Signs Date Time Temp Pulse Resp B/P Pulse Ox O2 Delivery O2 Flow Rate FiO2 04/18/16 16:00 98.8 60 20 169/72 93 Room Air 35.00 04/18/16 13:07 95 04/18/16 12:00 98.3 60 23 146/72 95 Face Tent 35.00 04/18/16 09:40 94 04/18/16 08:00 96.2 60 24 132/57 95 Face Tent 35.00 04/18/16 06:11 95 10.00 35 04/18/16 04:00 98.4 73 24 133/94 94 Face Tent 10.00 04/18/16 02:27 98 10.00 35 04/18/16 00:00 97.6 70 24 125/78 94 Face Tent 10.00 04/17/16 22:05 93 10.00 35 04/17/16 20:00 96.9 69 22 138/69 92 Face Tent 35.00 04/17/16 20:00 Face Tent 04/17/16 19:12 91 I & O 04/18/16 07:00 Intake Total 2470 ml Output Total 3250 ml Balance -780 ml Capillary Refill : Less Than 3 SecondsLess Than 3 Seconds General Appearance: No Apparent Distress Neck: Supple Respiratory: Stridor Cardiovascular: Regular Rate, Rhythm Gastrointestinal: normal bowel sounds non tender soft Extremity: Non Tender No Calf Tenderness No Pedal Edema Neurologic/Psychiatric: Alert Oriented x3 Results Lab Laboratory Tests 04/17/16 20:42: Glucometer 209H 04/18/16 05:16: Glucometer 148H 04/18/16 11:33: Glucometer 142H 04/18/16 16:30: Glucometer 161H Microbiology 04/13/16 Urine Culture - Final, Complete Streptococcus Viridans Assessment/Plan Assessment/Plan Assess & Plan/Chief Complaint 1. Stridor--appears to be psychogenic--cont routine ativan, up to chair and ambulate today 2. COPD exacerbation--improved, continue oral prednisone 3. Diabetes mellitus II--on SSI 4. Hypertension/Tremor--back on propranolol 5. Migraine--improved with toradol yesterday 6. Anxiety--increased buspar dose 7. UTI with Strep viridans-- continue rocephin Diagnosis/Problems: Clinical Quality Measures DVT/VTE Risk/Contraindication: Risk Factor Score Per Nursin RFS Level Per Nursing on Admit: 4+=Very High NANNETTE REVELES DO Apr 18, 2016 5:50 pm
[2016-04-18] MEDS: PRAMIPEXOLE 0.5 MG TAB (MIRAPEX) PO SCH (17:55)
[2016-04-18 20:00] VITALS: BP 145/68
[2016-04-18] MEDS: ENOXAPARIN 40 MG/0.4 ML (LOVENOX) SYR SC SCH (23:34)
[2016-04-19] VITALS: BP 147/67
[2016-04-19] MEDS: RT-ALBUTEROL/IPRATROPIUM 3 ML (DUONEB) VIAL INH SCH ×5 (03:29→19:00)
[2016-04-19 04:00] VITALS: BP 132/82
[2016-04-19] MEDS: PANTOPRAZOLE 40 MG (PROTONIX) TAB PO SCH ×2 (06:55→16:44)
[2016-04-19] MEDS: inSUlin (REGULAR) HUMAN 1 UNIT/0.01 ML (CHARGE PER UNIT) SC SCH ×4 (06:56→21:00)
[2016-04-19 08:00] VITALS: BP 133/71
--- NOTE | 2016-04-19 08:48 | Progress Note (SOAP) ---
Subjective Subjective/Events-last exam Fwup stridor, COPD exacerbation, UTI, Diabetes mellitus II, Hypertension, Migraine. Once again, no stridor with conversation. Once again, did not get up and ambulate yesterday as instructed--states she asked and nobody would do it. Objective Exam Vital Signs Date Time Temp Pulse Resp B/P Pulse Ox O2 Delivery O2 Flow Rate FiO2 04/19/16 05:49 84 2.00 04/19/16 04:00 97.2 83 22 132/82 96 High Flow NC 10.00 04/19/16 03:29 96 2.00 04/19/16 00:00 97.1 61 20 147/67 94 High Flow NC 10.00 04/18/16 21:40 94 2.00 04/18/16 20:00 97.6 65 20 145/68 93 Room Air 04/18/16 20:00 Room Air 04/18/16 18:54 92 04/18/16 16:00 98.8 60 20 169/72 93 Room Air 35.00 04/18/16 13:07 95 04/18/16 12:00 98.3 60 23 146/72 95 Face Tent 35.00 04/18/16 09:40 94 I & O 04/19/16 07:00 Intake Total 1560 ml Output Total 2675 ml Balance -1115 ml Capillary Refill : Less Than 3 SecondsLess Than 3 Seconds General Appearance: No Apparent Distress Respiratory: Lungs Clear Cardiovascular: Regular Rate, Rhythm Gastrointestinal: normal bowel sounds non tender soft Extremity: Non Tender No Calf Tenderness No Pedal Edema Neurologic/Psychiatric: Alert Oriented x3 Results Lab Laboratory Tests 04/18/16 11:33: Glucometer 142H 04/18/16 16:30: Glucometer 161H 04/18/16 20:52: Glucometer 150H 04/19/16 05:49: Glucometer 203H Microbiology 04/13/16 Urine Culture - Final, Complete Streptococcus Viridans Assessment/Plan Assessment/Plan Assess & Plan/Chief Complaint 1. Stridor--appears to be psychogenic--cont routine ativan, up to chair and ambulate today--will start PT to ambulate, explained to patient that this is psychogenic 2. COPD exacerbation--improved, continue oral prednisone 3. Diabetes mellitus II--on SSI 4. Hypertension/Tremor--back on propranolol 5. Migraine--improved with toradol yesterday 6. Anxiety--increased buspar dose 7. UTI with Strep viridans-- continue rocephin Diagnosis/Problems: Clinical Quality Measures DVT/VTE Risk/Contraindication: Risk Factor Score Per Nursin RFS Level Per Nursing on Admit: 4+=Very High NANNETTE REVELES DO Apr 19, 2016 08:48
[2016-04-19] MEDS: PROPRANOLOL 20 MG (INDERAL) TABLET PO SCH ×2 (09:42→21:11)
[2016-04-19] MEDS: GABAPENTIN 300 MG (NEURONTIN) CAP PO SCH ×2 (09:42→21:11)
[2016-04-19] MEDS: LORazepam 0.5 MG (ATIVAN) TABLET PO SCH ×3 (09:42→21:11)
[2016-04-19] MEDS: busPIRone 5 MG (BUSPAR) TAB PO SCH ×3 (09:43→21:12)
[2016-04-19] MEDS: GLIMEPIRIDE 2 MG (AMARYL) TAB PO SCH ×2 (09:43→21:11)
[2016-04-19] MEDS: TOLTERODINE LA 4 MG (DETROL) CAP PO SCH ×2 (09:43→21:12)
[2016-04-19] MEDS: predniSONE 20 MG TAB PO SCH ×2 (09:43→21:12)
[2016-04-19 12:00] VITALS: BP 133/62
--- NOTE | 2016-04-19 12:01 | Physical Therapy Evaluation ---
PT Evaluation-General Medical Diagnosis Admission Date Apr 13, 2016 at 10:03 Medical Diagnosis: COPD exacerbation Onset Date: Apr 13, 2016 Therapy Diagnosis Therapy Diagnosis: debility Height/Weight Height (Feet): 5 Height (Inches): 4.00 Weight (Pounds): 216 Weight (Ounces): 0.0 Precautions Precautions/Isolations: Standard Precautions Referral Physician: Franklin Reason for Referral: Evaluation/Treatment Medical History Pertinent Medical History: Arthritis, DM, HTN, Neuropathy Additional Medical History allergic to cats (she has 5 in the house and will not part with them) Current History acute onset SOB and dyspnea Reviewed History: Yes Social History Home: Single Level Current Living Status: Spouse Prior/Core FIM Prior Level of Function Functional [place] Measure 0=Not Assessed/NA 4=Minimal Assistance 1=Total Assistance 5=Supervision or Setup 2=Maximal Assistance 6=Modified [place] 3=Moderate Assistance 7=Complete [place] Bed Mobility: 7 Transfers (B,C,W/C) (FIM): 7 Gait: 7 patient has power chair, 4WW, FWW established PT Evaluation-Current Subjective Patient is in bed without O2 in place. When asked why, she states, "I just forget about it." PT placed O2 NC on patient. Pain Numeric Pain Scale: 5-Moderate Pain Location: Right, Left Location Body Site: Knee Pain Description: Ache Objective Patient Orientation: Normal For Age Problem Solving: Good Attachments: Oxygen ROM/Strength ROM Lower Extremities bilateral LE WFL Strenght Lower Extremities bilateral LE WFL Integumentary/Posture Integumentary refer to nursing notes Bowel Incontinence: No Bladder Incontinence: No Posture WNL Neuromuscular (Tone, Coordination, Reflexes) grossly intact Sensory Vision: Wears Glasses Hearing: Functional Sensation Right Lower Extremit: Impaired Sensation Left Lower Extremity: Impaired Transfers Functional [place] Measure 0=Not Assessed/NA 4=Minimal Assistance 1=Total Assistance 5=Supervision or Setup 2=Maximal Assistance 6=Modified [place] 3=Moderate Assistance 7=Complete [place] Transfers (B, C, W/C) (FIM): 6 Scootin Rollin Supine to/from Sit: 7 Sit to/from Stand: 6 Gait Mode of Locomotion: Walk Anticipated Mode of Locomotion: Walk Gait (FIM): 2 Distance (FIM): 1=238-53 ft Distance: 125' Gait Level of Assist: 5 Gait Assistive Device: FWW Comments/Gait Description slow, functional Balance Sitting Static: Normal Sitting Dynamic: Normal Standing Static: Normal Standing Dynamic: Normal Assessment/Needs 70 y.o. female, will benefit from short term skilled PT to address functional mobility to improve current LOF and to safely return to home with spouse at maximum LOF. Rehab Potential: Good PT Skilled Nursing Goals Button [place] Goals PT Button [place] Goals Time Frame: Apr 26, 2016 Transfers (B,C,W/C) (FIM): 7 Gait (FIM): 6 Gait distance (FIM): 3=150 ft Distance: 150' Gait Level of Assist: 6 Gait Assistive Device: FWW PT Plan Treatment/Plan Treatment Plan: Continue Plan of Care Treatment Plan: Education, Functional Activity Eileen, Functional Strength, Gait , Safety, Therapeutic Exercise, Transfers Treatment Duration: Apr 26, 2016 # of days/week 5-6 Visits Per Week: 5-6 Pt/Family Agrees w/Plan: Yes Discharge Recommendations Therapy D/C Recommendations: Home w/ Family Support Time/GCodes Time In: 1131 Time Out: 1146 Total Billed Treatment Time: 15 Total Billed Treatment 1 visit EVLow 15 min G Codes Necessary: IRENE Yanez PT Apr 19, 2016 12:01
[2016-04-19 16:00] VITALS: BP 138/65
[2016-04-19] MEDS: PRAMIPEXOLE 0.5 MG TAB (MIRAPEX) PO SCH (18:22)
[2016-04-19 20:00] VITALS: BP 127/65
[2016-04-19] MEDS: ENOXAPARIN 40 MG/0.4 ML (LOVENOX) SYR SC SCH (22:21)
[2016-04-20 00:45] VITALS: BP 135/74
[2016-04-20 04:00] VITALS: BP 157/79
[2016-04-20] MEDS: RT-ALBUTEROL/IPRATROPIUM 3 ML (DUONEB) VIAL INH PRN (04:52)
[2016-04-20] MEDS: inSUlin (REGULAR) HUMAN 1 UNIT/0.01 ML (CHARGE PER UNIT) SC SCH ×4 (06:00→20:57)
[2016-04-20] MEDS: PANTOPRAZOLE 40 MG (PROTONIX) TAB PO SCH ×2 (06:28→17:30)
[2016-04-20] MEDS: RT-ALBUTEROL/IPRATROPIUM 3 ML (DUONEB) VIAL INH SCH ×3 (07:56→18:48)
[2016-04-20 08:00] VITALS: BP 142/67
[2016-04-20] MEDS: busPIRone 5 MG (BUSPAR) TAB PO SCH ×3 (09:02→21:22)
[2016-04-20] MEDS: GLIMEPIRIDE 2 MG (AMARYL) TAB PO SCH ×2 (09:02→21:23)
[2016-04-20] MEDS: LORazepam 0.5 MG (ATIVAN) TABLET PO SCH ×3 (09:03→21:23)
[2016-04-20] MEDS: TOLTERODINE LA 4 MG (DETROL) CAP PO SCH ×2 (09:03→21:23)
[2016-04-20] MEDS: GABAPENTIN 300 MG (NEURONTIN) CAP PO SCH ×2 (09:03→21:22)
[2016-04-20] MEDS: PROPRANOLOL 20 MG (INDERAL) TABLET PO SCH ×2 (09:03→21:23)
[2016-04-20] MEDS: predniSONE 20 MG TAB PO SCH ×2 (09:03→21:22)
--- NOTE | 2016-04-20 10:28 | Physical Therapy Daily Note ---
PT Daily Note-Current Subjective Patient is very tearful secondary to a personal matter. Agrees to PT. Pain Numeric Pain Scale: 5-Moderate Pain Location: Right Location Body Site: Side Pain Description: Ache Mental Status Patient Orientation: Normal For Age Attachments: Oxygen Transfers Functional [place] Measure 0=Not Assessed/NA 4=Minimal Assistance 1=Total Assistance 5=Supervision or Setup 2=Maximal Assistance 6=Modified [place] 3=Moderate Assistance 7=Complete IndependenceIRFPAI Quality Coding Scale 6 Independent with activity with or without an assistive device 5 Patient requires set up or clean up by helper. Patient completes activity by themselves 4 Supervision or touching assist (CGA). [place] provide cues , steadying assist 3 The helper provides less than half the effort to complete the activity 2 The helper provides more than half the effort to complete the activity 1 Dependent. The helper does all the effort to complete an activity 7 Patient refused to complete or attempt activity 9 The patient did not perform the activity before the current illness or injury 88 Not attempted due to Medical conditions or safety concerns Transfers (B, C, W/C) (FIM): 7 Scootin Supine to/from Sit: 7 Sit to/from Stand: 7 Bed to/from Chair: 7 Gait Training Gait (FIM): 5 Distance (FIM): 3=150 ft Distance: 150' Gait Level of Assist: 5 Gait Assistive Device: FWW very slow, methodical gait. No noted deviations. Assessment Patient tolerated treatment well. Patient returned to bed with needs met. PT Banking Paralegal Goals [facility] Goals PT [facility] Goals Time Frame: Apr 26, 2016 Transfers (B,C,W/C) (FIM): 7 Gait (FIM): 6 Gait distance (FIM): 3=150 ft Distance: 150' Gait Level of Assist: 6 Gait Assistive Device: FWW PT Plan Treatment/Plan Treatment Plan: Continue Plan of Care Treatment Plan: Education, Functional Activity Eileen, Functional Strength, Gait , Safety, Therapeutic Exercise, Transfers Treatment Duration: Apr 26, 2016 Visits Per Week: 5-6 Time/GCodes Time In: 905 Time Out: 928 Total Billed Treatment Time: 23 Total Billed Treatment 1 visit FA x 2 23min IRENE NEGRO PT Apr 20, 2016 10:28
[2016-04-20] MEDS ORDERED: KETOROLAC 30 MG/ML VIAL IVP NR (10:30)
--- NOTE | 2016-04-20 11:43 | Progress Note (SOAP) ---
Subjective Subjective/Events-last exam Fwup stridor, COPD exacerbation, UTI, Diabetes mellitus II, Hypertension, Migraine. Sleeping when I entered room with no stridor. Another migraine this AM. Back on NC. Fell yesterday due to weakness. Objective Exam Vital Signs Date Time Temp Pulse Resp B/P Pulse Ox O2 Delivery O2 Flow Rate FiO2 04/20/16 08:00 Nasal Cannula 2.00 04/20/16 08:00 97.4 71 20 142/67 97 High Flow [place] 10.00 04/20/16 07:56 95 2.00 04/20/16 04:53 96 2.00 04/20/16 04:00 98.2 61 18 157/79 93 Room Air 04/20/16 00:45 96.8 61 21 135/74 97 High Flow NC 10.00 04/19/16 20:00 97.7 64 22 127/65 96 High Flow NC 10.00 04/19/16 20:00 Room Air 04/19/16 19:00 93 2.00 04/19/16 16:00 98.2 71 22 138/65 96 High Flow NC 10.00 04/19/16 13:51 63 2.00 04/19/16 12:00 98.6 64 22 133/62 95 High Flow NC 10.00 I & O 04/20/16 07:00 Intake Total 2370 ml Output Total 3000 ml Balance -630 ml Capillary Refill : Less Than 3 SecondsLess Than 3 Seconds General Appearance: No Apparent Distress Neck: Supple Respiratory: Lungs Clear Decreased Breath Sounds Cardiovascular: Regular Rate, Rhythm Systolic Murmur Gastrointestinal: normal bowel sounds non tender soft Extremity: Non Tender No Calf Tenderness No Pedal Edema Neurologic/Psychiatric: Alert Oriented x3 Results Lab Laboratory Tests 04/19/16 16:20: Glucometer 237H 04/19/16 21:01: Glucometer 197H 04/20/16 06:09: Glucometer 170H 04/20/16 11:27: Glucometer 190H Microbiology 04/13/16 Urine Culture - Final, Complete Streptococcus Viridans Assessment/Plan Assessment/Plan Assess & Plan/Chief Complaint 1. 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 COPD exacerbation--improved, continue oral prednisone, repeat CXR 3. Diabetes mellitus II--on SSI 4. Hypertension/Tremor--back on propranolol 5. Migraine--repeat toradol 6. Anxiety--increased buspar dose 7. UTI with Strep viridans- rocephin finished 8. Weakness with fall--discussed with patient that if she is too weak to go home then need to consider SNF for strengthening Diagnosis/Problems: Clinical Quality Measures DVT/VTE Risk/Contraindication: Risk Factor Score Per Nursin RFS Level Per Nursing on Admit: 4+=Very High NANNETTE REVELES DO Apr 20, 2016 11:43
--- NOTE | 2016-04-20 11:43 | Diagnostic Imaging Report ---
EXAM: PA and lateral views of the chest. COMPARISON: 04/13/2016. FINDINGS: The heart size is moderately enlarged. There is minimal vascular congestion without overt edema. Minimal right bilateral atelectasis is seen. When compared to the prior exam, a tiny right pleural effusion is noted. There is kyphoplasty change at the L1 level. Pacemaker and 2 leads seen. IMPRESSION: Cardiomegaly with minimal vascular congestion. Tiny right pleural effusion. Dictated by: Dictated on workstation # [id number]
[2016-04-20] MEDS ORDERED: FUROSEMIDE 40 MG/4 ML INJ (LASIX) IVP NR (11:45)
[2016-04-20] MEDS ORDERED: KCL 20 MEQ TAB (K-DUR) PO NR (11:45)
[2016-04-20 12:00] VITALS: BP 139/64
[2016-04-20 16:00] VITALS: BP 147/84
[2016-04-20] MEDS: PRAMIPEXOLE 0.5 MG TAB (MIRAPEX) PO SCH (17:30)
[2016-04-20 20:00] VITALS: BP 121/74
[2016-04-20] MEDS: ENOXAPARIN 40 MG/0.4 ML (LOVENOX) SYR SC SCH (23:05)
[2016-04-21] VITALS: BP 130/78
[2016-04-21] MEDS: inSUlin (REGULAR) HUMAN 1 UNIT/0.01 ML (CHARGE PER UNIT) SC SCH ×4 (05:57→21:04)
[2016-04-21] MEDS: PANTOPRAZOLE 40 MG (PROTONIX) TAB PO SCH ×2 (06:00→16:07)
[2016-04-21 08:00] VITALS: BP 122/76
--- NOTE | 2016-04-21 09:14 | Physical Therapy Daily Note ---
PT Daily Note-Current Subjective Pt. in bed and agrees to therapy. She reports she is going home today. Mental Status Patient Orientation: Normal For Age Transfers Functional [place] Measure 0=Not Assessed/NA 4=Minimal Assistance 1=Total Assistance 5=Supervision or Setup 2=Maximal Assistance 6=Modified [place] 3=Moderate Assistance 7=Complete IndependenceIRFPAI Quality Coding Scale 6 Independent with activity with or without an assistive device 5 Patient requires set up or clean up by helper. Patient completes activity by themselves 4 Supervision or touching assist (CGA). [place] provide cues , steadying assist 3 The helper provides less than half the effort to complete the activity 2 The helper provides more than half the effort to complete the activity 1 Dependent. The helper does all the effort to complete an activity 7 Patient refused to complete or attempt activity 9 The patient did not perform the activity before the current illness or injury 88 Not attempted due to Medical conditions or safety concerns Transfers (B, C, W/C) (FIM): 7 Supine to/from Sit: 7 Sit to/from Stand: 7 Gait Training Gait (FIM): 6 Distance (FIM): 3=150 ft Distance: 150 ft Gait Level of Assist: 6 Gait Assistive Device: FWW slow gait speed but steady using FWW Assessment Current Status: Good Progress Pt. did well with ambulation and transfers and is planning D/C home today. Pt. has met goals for therapy. PT Mcfp Goals Biztalk Administrator Goals PT Mcfp Goals Time Frame: Apr 26, 2016 Transfers (B,C,W/C) (FIM): 7 Gait (FIM): 6 Gait distance (FIM): 3=150 ft Distance: 150' Gait Level of Assist: 6 Gait Assistive Device: FWW PT Plan Treatment/Plan Treatment Plan: Discontinue PT, goals met Treatment Plan: Education, Functional Activity Eileen, Functional Strength, Gait , Safety, Therapeutic Exercise, Transfers Treatment Duration: Apr 26, 2016 Visits Per Week: 5-6 Time/GCodes Time In: 830 Time Out: 840 Total Billed Treatment Time: 10 Total Billed Treatment 1, GT 10' BOBBY CAVANAUGH PT Apr 21, 2016 09:13
[2016-04-21] MEDS: TOLTERODINE LA 4 MG (DETROL) CAP PO SCH ×2 (09:26→20:52)
[2016-04-21] MEDS: LORazepam 0.5 MG (ATIVAN) TABLET PO SCH ×3 (09:26→20:52)
[2016-04-21] MEDS: GLIMEPIRIDE 2 MG (AMARYL) TAB PO SCH ×2 (09:26→20:52)
[2016-04-21] MEDS: PROPRANOLOL 20 MG (INDERAL) TABLET PO SCH ×2 (09:26→20:52)
[2016-04-21] MEDS: busPIRone 5 MG (BUSPAR) TAB PO SCH ×3 (09:27→20:52)
[2016-04-21] MEDS: GABAPENTIN 300 MG (NEURONTIN) CAP PO SCH ×2 (09:27→20:52)
[2016-04-21] MEDS: predniSONE 20 MG TAB PO SCH (09:27)
[2016-04-21] MEDS: RT-ALBUTEROL/IPRATROPIUM 3 ML (DUONEB) VIAL INH SCH ×3 (10:15→19:05)
--- NOTE | 2016-04-21 11:56 | Progress Note (SOAP) ---
Subjective Subjective/Events-last exam Fwup stridor, COPD exacerbation, UTI, Diabetes mellitus II, Hypertension, Migraine. Patient did well with PT today but now nursing reports she is coughing more and more short of air and worried about going home. She admits to me that she was just going to go home and not to her friends house as planned because it was just easier but is now relieved that she does not have to go home. I once again explained to her that I feel she needs SNF and so she agrees to look into this because she states she can't do this at home and her will not be able to help her. Objective Exam Vital Signs Date Time Temp Pulse Resp B/P Pulse Ox O2 Delivery O2 Flow Rate FiO2 04/21/16 10:15 96 2.00 04/21/16 08:00 97.7 72 20 122/76 95 Nasal Cannula 2.00 04/21/16 00:00 96.9 128 19 130/78 94 Nasal Cannula 2.00 04/20/16 20:00 Room Air 2.00 04/20/16 20:00 96.8 58 20 121/74 93 Nasal Cannula 2.00 04/20/16 18:49 92 2.00 04/20/16 16:00 97.8 66 20 147/84 93 Nasal Cannula 2.00 04/20/16 14:32 2.00 04/20/16 12:00 98.0 66 20 139/64 95 High Flow NC 10.00 I & O 04/21/16 07:00 Intake Total 1400 ml Output Total 3350 ml Balance -1950 ml Capillary Refill : Less Than 3 SecondsLess Than 3 Seconds General Appearance: Mild Distress (coughing and short of air) Neck: Supple Respiratory: Stridor Cardiovascular: Regular Rate, Rhythm Systolic Murmur Gastrointestinal: normal bowel sounds non tender soft Extremity: Non Tender No Calf Tenderness No Pedal Edema Neurologic/Psychiatric: Alert Oriented x3 Results Lab Laboratory Tests 04/20/16 15:57: Glucometer 247H 04/20/16 20:55: Glucometer 178H 04/21/16 05:39: Glucometer 139H Microbiology 04/13/16 Urine Culture - Final, Complete Streptococcus Viridans Assessment/Plan Assessment/Plan Assess & Plan/Chief Complaint 1. 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 COPD exacerbation--improved, decrease oral prednisone, add Advair 3. Diabetes mellitus II--on SSI 4. Hypertension/Tremor--back on propranolol 5. Migraine--better today 6. Anxiety--increased buspar dose 7. UTI with Strep viridans- rocephin finished 8. Weakness with fall--discussed with patient that if she is too weak to go home so now agreeable to consider SNF for strengthening--plus her current living conditions are no very suitable to her lungs Diagnosis/Problems: Clinical Quality Measures DVT/VTE Risk/Contraindication: Risk Factor Score Per Nursin RFS Level Per Nursing on Admit: 4+=Very High NANNETTE REVELES DO Apr 21, 2016 11:56 am
[2016-04-21 16:00] VITALS: BP 142/67
[2016-04-21] MEDS: RT-ADVAIR HFA 115/21 MCG PER PUFF IH SCH ×2 (16:22→19:05)
[2016-04-21] MEDS: PRAMIPEXOLE 0.5 MG TAB (MIRAPEX) PO SCH (18:48)
[2016-04-21] MEDS: ENOXAPARIN 40 MG/0.4 ML (LOVENOX) SYR SC SCH (22:09)
[2016-04-22] VITALS: BP 115/79
[2016-04-22] MEDS: inSUlin (REGULAR) HUMAN 1 UNIT/0.01 ML (CHARGE PER UNIT) SC SCH ×4 (06:00→21:21)
[2016-04-22] MEDS: RT-ALBUTEROL/IPRATROPIUM 3 ML (DUONEB) VIAL INH SCH ×3 (06:10→18:49)
[2016-04-22] MEDS: RT-ADVAIR HFA 115/21 MCG PER PUFF IH SCH ×2 (06:10→18:49)
[2016-04-22] MEDS: PANTOPRAZOLE 40 MG (PROTONIX) TAB PO SCH ×2 (06:34→15:09)
[2016-04-22 08:49] VITALS: BP 117/73
[2016-04-22] MEDS: predniSONE 20 MG TAB PO SCH (09:15)
[2016-04-22] MEDS: GABAPENTIN 300 MG (NEURONTIN) CAP PO SCH ×2 (09:15→20:55)
[2016-04-22] MEDS: LORazepam 0.5 MG (ATIVAN) TABLET PO SCH ×3 (09:15→20:55)
[2016-04-22] MEDS: TOLTERODINE LA 4 MG (DETROL) CAP PO SCH ×2 (09:15→20:55)
[2016-04-22] MEDS: GLIMEPIRIDE 2 MG (AMARYL) TAB PO SCH ×2 (09:15→20:55)
[2016-04-22] MEDS: busPIRone 5 MG (BUSPAR) TAB PO SCH ×3 (09:15→20:55)
[2016-04-22] MEDS: PROPRANOLOL 20 MG (INDERAL) TABLET PO SCH ×2 (09:15→20:55)
--- NOTE | 2016-04-22 09:53 | Progress Note (SOAP) ---
Subjective Subjective/Events-last exam Fwup stridor, COPD exacerbation, UTI, Diabetes mellitus II, Hypertension, Migraine. C/O [place] this morning but respiratory status approves much improved from yesterday. Objective Exam Vital Signs Date Time Temp Pulse Resp B/P Pulse Ox O2 Delivery O2 Flow Rate FiO2 04/22/16 08:49 97.0 66 18 117/73 97 Nasal Cannula 2.00 04/22/16 06:39 96 04/22/16 06:13 95 04/22/16 00:00 96.1 60 18 115/79 97 Nasal Cannula 2.00 04/21/16 20:00 Nasal Cannula 2.00 04/21/16 19:05 97 2.00 04/21/16 16:00 98.0 65 18 142/67 93 Nasal Cannula 2.00 04/21/16 15:13 92 2.00 04/21/16 10:15 96 2.00 I & O 04/22/16 07:00 Intake Total 1980 ml Output Total 2250 ml Balance -270 ml Capillary Refill : Less Than 3 SecondsLess Than 3 Seconds General Appearance: No Apparent Distress Neck: Supple Respiratory: Lungs Clear Cardiovascular: Regular Rate, Rhythm Systolic Murmur Gastrointestinal: normal bowel sounds non tender soft Extremity: Non Tender No Calf Tenderness No Pedal Edema Neurologic/Psychiatric: Alert Oriented x3 Results Lab Laboratory Tests 04/21/16 11:46: Glucometer 156H 04/21/16 15:57: Glucometer 226H 04/21/16 20:49: Glucometer 232H 04/22/16 05:46: Glucometer 107 Microbiology 04/13/16 Urine Culture - Final, Complete Streptococcus Viridans Assessment/Plan Assessment/Plan Assess & Plan/Chief Complaint 1. 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 COPD exacerbation--improved, on oral prednisone, added Advair yesterday 3. Diabetes mellitus II--on SSI 4. Hypertension/Tremor--back on propranolol 5. Migraine--repeat toradol 6. Anxiety--increased buspar dose 7. UTI with Strep viridans- rocephin finished 8. Weakness with fall--discussed with patient that if she is too weak to go home so now agreeable to consider SNF for strengthening--plus her current living conditions are no very suitable to her lungs--SS tomorrow to discuss SNF Diagnosis/Problems: Clinical Quality Measures DVT/VTE Risk/Contraindication: Risk Factor Score Per Nursin RFS Level Per Nursing on Admit: 4+=Very High NANNETTE REVELES DO Apr 22, 2016 9:53 am
[2016-04-22] MEDS ORDERED: KETOROLAC 30 MG/ML VIAL IVP PRN (10:00)
[2016-04-22] MEDS: KETOROLAC 15 MG/ML VIAL IV PRN ×2 (12:51→23:57)
[2016-04-22] MEDS: ACETAMINOPHEN 325 MG TABLET/CAPLET (TYLENOL) PO PRN (15:07)
[2016-04-22 16:48] VITALS: BP 111/51
[2016-04-22] MEDS: PRAMIPEXOLE 0.5 MG TAB (MIRAPEX) PO SCH (17:16)
[2016-04-22] MEDS ORDERED: inSUlin DETERMIR 1 UNIT/0.01 ML (LEVEMIR) CHARGE PER UNIT SQ ONE (21:15)
[2016-04-22] MEDS: ENOXAPARIN 40 MG/0.4 ML (LOVENOX) SYR SC SCH (22:11)
[2016-04-23 00:44] VITALS: BP 116/67
[2016-04-23] MEDS: inSUlin (REGULAR) HUMAN 1 UNIT/0.01 ML (CHARGE PER UNIT) SC SCH ×4 (06:00→21:20)
[2016-04-23] MEDS: PANTOPRAZOLE 40 MG (PROTONIX) TAB PO SCH ×2 (06:00→15:44)
[2016-04-23 07:40] VITALS: BP 123/60
[2016-04-23] MEDS: RT-ALBUTEROL/IPRATROPIUM 3 ML (DUONEB) VIAL INH SCH ×3 (07:46→20:21)
[2016-04-23] MEDS: RT-ADVAIR HFA 115/21 MCG PER PUFF IH SCH ×2 (07:52→20:21)
[2016-04-23] MEDS: busPIRone 5 MG (BUSPAR) TAB PO SCH ×3 (08:47→20:15)
[2016-04-23] MEDS: PROPRANOLOL 20 MG (INDERAL) TABLET PO SCH ×2 (08:47→20:15)
[2016-04-23] MEDS: GLIMEPIRIDE 2 MG (AMARYL) TAB PO SCH ×2 (08:48→20:14)
[2016-04-23] MEDS: TOLTERODINE LA 4 MG (DETROL) CAP PO SCH ×2 (08:48→20:14)
[2016-04-23] MEDS: LORazepam 0.5 MG (ATIVAN) TABLET PO SCH ×3 (08:48→20:15)
[2016-04-23] MEDS: predniSONE 20 MG TAB PO SCH (08:48)
[2016-04-23] MEDS: GABAPENTIN 300 MG (NEURONTIN) CAP PO SCH ×2 (08:48→20:15)
--- NOTE | 2016-04-23 11:04 | Physical Therapy Daily Note ---
PT Daily Note-Current Subjective Pt sitting up in recliner upon arrival. Pt reports wanting to go home and knows Therapy will help so despite pain in back pt agrees to PT. Pain Numeric Pain Scale: 8 Location: Dorsal Location Body Site: Back Pain Description: Sharp Comment: Pt reports pain in mid back Mental Status Patient Orientation: Person, Place, Time, Situation Attachments: Oxygen Transfers Functional [place] Measure 0=Not Assessed/NA 4=Minimal Assistance 1=Total Assistance 5=Supervision or Setup 2=Maximal Assistance 6=Modified [place] 3=Moderate Assistance 7=Complete IndependenceIRFPAI Quality Coding Scale 6 Independent with activity with or without an assistive device 5 Patient requires set up or clean up by helper. Patient completes activity by themselves 4 Supervision or touching assist (CGA). [place] provide cues , steadying assist 3 The helper provides less than half the effort to complete the activity 2 The helper provides more than half the effort to complete the activity 1 Dependent. The helper does all the effort to complete an activity 7 Patient refused to complete or attempt activity 9 The patient did not perform the activity before the current illness or injury 88 Not attempted due to Medical conditions or safety concerns Transfers (B, C, W/C) (FIM): 6 Scootin Rollin Supine to/from Sit: 6 Sit to/from Stand: 6 Bed to/from Chair: 6 Weight Bearing Weight Bearing Restriction: Full Weight Bearing Location Restriction: LE Bilateral Gait Training Gait (FIM): 6 Distance (FIM): 3=150 ft Distance: 150' Gait Level of Assist: 6 Gait Persons Needed: 1 Gait Assistive Device: FWW Pt fatigues easy due to pain but is motivated to get better and get home. Pt walks with normalized gait pattern and no LOB. Treatments Pt wanted to discuss what discharge might look like. curing room worker came in at this point and discussed options for SNF for discharge for short time before going home. Pt is very concerned about and anxious for discharge. Pt agreed to walk with PT since pt knew it would help her get better. Pt transferred from recliner to standing using FWW at Mod I. Pt ambulated in hallway using FWW at Mod I. Pt returned to room to rest. Pt transferred to sitting up in bed at Mod I. Pt left with all needs met at end of tx. Assessment Current Status: Fair Progress Pt transfers and ambulates well using FWW but fatigues easy and reports much sharp pain. PT Pallet Rectifier Goals Pallet Rectifier Goals PT Halfway Goals Time Frame: Apr 26, 2016 Transfers (B,C,W/C) (FIM): 7 Gait (FIM): 6 Gait distance (FIM): 3=150 ft Distance: 150' Gait Level of Assist: 6 Gait Assistive Device: FWW PT Plan Problem List Problem List: Activity Tolerance, Gait Treatment/Plan Treatment Plan: Continue Plan of Care Treatment Plan: Education, Functional Activity Eileen, Functional Strength, Gait , Safety, Therapeutic Exercise, Transfers Treatment Duration: Apr 26, 2016 Visits Per Week: 5-6 Safety Risks/Education Patient Education: Gait Training, Correct Positioning, Safety Issues Teaching Recipient: Patient Teaching Methods: Discussion Response to Teaching: Verbalize Understanding Time/GCodes Time In: 1025 Time Out: 1050 Total Billed Treatment Time: 25 Total Billed Treatment visit, GT (10m) & FA (15m) NETTIE CHAMBERS PTA Apr 23, 2016 11:03
--- NOTE | 2016-04-23 14:44 | Progress Note (SOAP) ---
Subjective Subjective/Events-last exam Fwup stridor, COPD exacerbation, UTI, Diabetes mellitus II, Hypertension, Migraine. Off oxygen and no stidor today. C/O diarrhea. Objective Exam Vital Signs Date Time Temp Pulse Resp B/P Pulse Ox O2 Delivery O2 Flow Rate FiO2 04/23/16 13:14 94 04/23/16 08:00 97 Nasal Cannula 2.00 04/23/16 07:52 98 2.00 04/23/16 07:46 98 2.00 04/23/16 07:40 97.8 69 18 123/60 96 Nasal Cannula 2.00 04/23/16 00:44 96.9 63 18 116/67 96 Nasal Cannula 2.00 04/22/16 20:00 Nasal Cannula 2.00 04/22/16 18:55 2.00 04/22/16 18:50 93 2.00 04/22/16 16:48 97.1 69 18 111/51 94 Nasal Cannula 2.00 I & O 04/23/16 07:00 Intake Total 1960 ml Balance 1960 ml Capillary Refill : Less Than 3 SecondsLess Than 3 Seconds General Appearance: No Apparent Distress Neck: Supple Respiratory: Lungs Clear Cardiovascular: Regular Rate, Rhythm Gastrointestinal: normal bowel sounds non tender soft Extremity: Non Tender No Calf Tenderness No Pedal Edema Neurologic/Psychiatric: Alert Oriented x3 Results Lab Laboratory Tests 04/22/16 15:52: Glucometer 430*H 04/22/16 20:37: Glucometer 470*H 04/23/16 05:41: Glucometer 66L 04/23/16 11:40: Glucometer 104 Microbiology 04/13/16 Urine Culture - Final, Complete Streptococcus Viridans Assessment/Plan Assessment/Plan Assess & Plan/Chief Complaint 1. 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 COPD exacerbation--improved, on oral prednisone, added Advair 3. Diabetes mellitus II--on SSI 4. Hypertension/Tremor--back on propranolol 5. Migraine-- toradol prn 6. Anxiety--increased buspar dose 7. UTI with Strep viridans- rocephin finished 8. Weakness with fall--discussed with patient that if she is too weak to go home so now agreeable to consider SNF for strengthening--plus her current living conditions are no very suitable to her lungs--SS looking at [facility] 9. Diarrhea--add flagyl Diagnosis/Problems: Clinical Quality Measures DVT/VTE Risk/Contraindication: Risk Factor Score Per Nursin RFS Level Per Nursing on Admit: 4+=Very High NANNETTE REVELES DO Apr 23, 2016 2:43 pm
[2016-04-23] MEDS ORDERED: metroNIDAZOLE 500 MG (FLAGYL) TAB PO NR (14:45)
[2016-04-23] MEDS ORDERED: FLUT12AE4 IH (14:47)
[2016-04-23] MEDS ORDERED: BUSP5TAB59 PO (14:47)
[2016-04-23] MEDS ORDERED: LORA0.5T PO (14:47)
[2016-04-23] MEDS ORDERED: PRD20T PO (14:47)
[2016-04-23] MEDS ORDERED: METR500T PO (14:48)
--- NOTE | 2016-04-23 14:50 | Discharge Inst-Skilled Nursing ---
Discharge Inst-Skilled NF Patient Instructions Patient Problems: Stridor Weakness Goal: Strengthening and back to home Consult/Follow Up/Orders Follow Up Appt.: Fwup 1 week Skilled NF Admit to: [facility] Certification (SNF) I certify that SNF services are required to be given on an inpatient basis because of the above named patient's need for group home care on a continuing basis for the conditions(s) for which he/she was receiving inpatient hospital services prior to his/her transfer to the SNF. Residential Facility Order: Nursing Services, Physical Therapy-Evaluate & Treat Discharge Diet: ADA Diet, Cardiac Diet Daily Activity as Tolerated: Yes New & Resume Previous Orders Other Instructions Oxygen at 2L NC q HS Belia Reid Apr 23, 2016 14:49 BELIA REID DO Apr 23, 2016 2:50 pm
[2016-04-23 16:29] VITALS: BP 136/79
[2016-04-23] MEDS: PRAMIPEXOLE 0.5 MG TAB (MIRAPEX) PO SCH (18:23)
[2016-04-23] MEDS: metroNIDAZOLE 500 MG (FLAGYL) TAB PO SCH (20:15)
[2016-04-23] MEDS: ENOXAPARIN 40 MG/0.4 ML (LOVENOX) SYR SC SCH (23:27)
[2016-04-23] MEDS: KETOROLAC 15 MG/ML VIAL IV PRN (23:27)
[2016-04-24] VITALS: BP 105/62
[2016-04-24] MEDS: inSUlin (REGULAR) HUMAN 1 UNIT/0.01 ML (CHARGE PER UNIT) SC SCH ×5 (05:24→21:00)
[2016-04-24] MEDS: PANTOPRAZOLE 40 MG (PROTONIX) TAB PO SCH ×2 (06:24→15:30)
[2016-04-24] MEDS: RT-ADVAIR HFA 115/21 MCG PER PUFF IH SCH (06:50)
[2016-04-24] MEDS: RT-ALBUTEROL/IPRATROPIUM 3 ML (DUONEB) VIAL INH SCH (06:50)
[2016-04-24 08:00] VITALS: BP 119/59
[2016-04-24 08:52] LABS: BILIRUBIN,URINE NEGATIVE (NEGATIVE); KETONES,URINE NEGATIVE (NEGATIVE); LEUKOCYTE ESTERASE ,URINE 2+ (NEGATIVE); NITRITE,URINE NEGATIVE (NEGATIVE); PH,URINE 6 (5-9); PROTEIN,URINE NEGATIVE (NEGATIVE); UROBILINOGEN,URINE NORMAL (NORMAL)
[2016-04-24] MEDS: GLIMEPIRIDE 2 MG (AMARYL) TAB PO SCH ×2 (09:25→21:24)
[2016-04-24] MEDS: predniSONE 20 MG TAB PO SCH (09:25)
[2016-04-24] MEDS: TOLTERODINE LA 4 MG (DETROL) CAP PO SCH ×2 (09:25→21:24)
[2016-04-24] MEDS: PROPRANOLOL 20 MG (INDERAL) TABLET PO SCH ×2 (09:25→21:24)
[2016-04-24] MEDS: metroNIDAZOLE 500 MG (FLAGYL) TAB PO SCH ×3 (09:26→21:24)
[2016-04-24] MEDS: LORazepam 0.5 MG (ATIVAN) TABLET PO SCH ×3 (09:26→21:24)
[2016-04-24] MEDS: GABAPENTIN 300 MG (NEURONTIN) CAP PO SCH ×2 (09:26→21:24)
[2016-04-24] MEDS: busPIRone 5 MG (BUSPAR) TAB PO SCH ×3 (09:26→21:24)
--- NOTE | 2016-04-24 11:36 | Physical Therapy Daily Note ---
PT Daily Note-Current Subjective Pt is sitting up in bed upon arrival. Pt reports waiting on urine test results for discharge. Pt reports awaiting discharge to local SNF. Pt is anxious to discharge. Pain Numeric Pain Scale: 7 Location: Dorsal Location Body Site: Back Pain Description: Ache Mental Status Patient Orientation: Person, Place, Time, Situation Transfers Functional [place] Measure 0=Not Assessed/NA 4=Minimal Assistance 1=Total Assistance 5=Supervision or Setup 2=Maximal Assistance 6=Modified [place] 3=Moderate Assistance 7=Complete IndependenceIRFPAI Quality Coding Scale 6 Independent with activity with or without an assistive device 5 Patient requires set up or clean up by helper. Patient completes activity by themselves 4 Supervision or touching assist (CGA). [place] provide cues , steadying assist 3 The helper provides less than half the effort to complete the activity 2 The helper provides more than half the effort to complete the activity 1 Dependent. The helper does all the effort to complete an activity 7 Patient refused to complete or attempt activity 9 The patient did not perform the activity before the current illness or injury 88 Not attempted due to Medical conditions or safety concerns Transfers (B, C, W/C) (FIM): 6 Scootin Rollin Supine to/from Sit: 6 Sit to/from Stand: 6 Weight Bearing Weight Bearing Restriction: Full Weight Bearing Location Restriction: LE Bilateral Gait Training Distance (FIM): 3=150 ft Distance: 150' Gait Level of Assist: 6 Gait Persons Needed: 1 Gait Assistive Device: FWW Pt has slow gab and slight antalgic gait due to pain in mid back. Treatments Pt transfers from supine to EOB to standing at Mod I using FWW. Pt ambulates in hallway using FWW at Mod I. Pt fatigues and needs to return to bed to rest. Pt transfers standing to EOB to supine at Mod I. Pt is left with all needs met at end of tx. Assessment Current Status: Fair Progress Pt continues to fatigue easy but has improved with independence of transfers and mobility safely. PT Half-Way Goals Half-Way Goals PT Half-Way Goals Time Frame: Apr 26, 2016 Transfers (B,C,W/C) (FIM): 7 Gait (FIM): 6 Gait distance (FIM): 3=150 ft Distance: 150' Gait Level of Assist: 6 Gait Assistive Device: FWW PT Plan Problem List Problem List: Activity Tolerance, Gait Treatment/Plan Treatment Plan: Continue Plan of Care Treatment Plan: Education, Functional Activity Eileen, Functional Strength, Gait , Safety, Therapeutic Exercise, Transfers Treatment Duration: Apr 26, 2016 Visits Per Week: 5-6 Safety Risks/Education Patient Education: Gait Training, Correct Positioning, Safety Issues Teaching Recipient: Patient Teaching Methods: Discussion Response to Teaching: Verbalize Understanding Time/GCodes Time In: 930 Time Out: 950 Total Billed Treatment Time: 20 Total Billed Treatment visit, GT (20m) NETTIE CHAMBERS PTA Apr 24, 2016 11:36
[2016-04-24] MEDS: KETOROLAC 15 MG/ML VIAL IV PRN ×2 (15:29→22:59)
[2016-04-24 16:37] VITALS: BP 141/67
[2016-04-24] MEDS: PRAMIPEXOLE 0.5 MG TAB (MIRAPEX) PO SCH (17:51)
--- NOTE | 2016-04-24 19:08 | Progress Note (SOAP) ---
Subjective Subjective/Events-last exam Fwup stridor, COPD exacerbation, UTI, Diabetes mellitus II, Hypertension, Migraine. Awaiting DC to SNF today. Objective Exam Vital Signs Date Time Temp Pulse Resp B/P Pulse Ox O2 Delivery O2 Flow Rate FiO2 04/24/16 16:37 97.4 74 22 141/67 94 Nasal Cannula 2.00 04/24/16 08:00 97.8 82 20 119/59 96 Nasal Cannula 2.00 04/24/16 08:00 97 Nasal Cannula 2.00 04/24/16 06:52 94 2.00 04/24/16 00:00 97.0 60 17 105/62 94 Nasal Cannula 2.00 04/23/16 20:26 94 2.00 04/23/16 20:21 95 2.00 04/23/16 20:05 Nasal Cannula 2.00 I & O 04/24/16 07:00 Intake Total 1080 ml Output Total 2900 ml Balance -1820 ml Capillary Refill : Less Than 3 SecondsLess Than 3 Seconds General Appearance: No Apparent Distress Respiratory: Lungs Clear Cardiovascular: Regular Rate, Rhythm Gastrointestinal: normal bowel sounds non tender soft Extremity: Non Tender No Calf Tenderness No Pedal Edema Neurologic/Psychiatric: Alert Oriented x3 Results Lab Laboratory Tests 04/23/16 21:03: Glucometer 261H 04/24/16 05:22: Glucometer 74 04/24/16 08:40: Urine Bacteria TRACE, Urine Bilirubin NEGATIVE, Urine Casts NONE, Urine Clarity CLEAR, Urine Color YELLOW, Urine Crystals NONE, Urine Culture Indicated YES, Urine Glucose (UA) 1+H, Urine Ketones NEGATIVE, Urine Leukocyte Esterase 2+H, Urine Mucus NEGATIVE, Urine Nitrite NEGATIVE, Urine Protein NEGATIVE, Urine RBC NONE, Urine RBC (Auto) NEGATIVE, Urine Specific [place] 1.020, Urine Squamous Epithelial Cells 5-10, Urine Urobilinogen NORMAL, Urine WBC 5-10H, Urine pH 6 04/24/16 12:04: Glucometer 110 04/24/16 15:39: Glucometer 327H Microbiology 04/13/16 Urine Culture - Final, Complete Streptococcus Viridans Assessment/Plan Assessment/Plan Assess & Plan/Chief Complaint 1. 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 COPD exacerbation--improved, on oral prednisone, added Advair 3. Diabetes mellitus II--on SSI 4. Hypertension/Tremor--back on propranolol 5. Migraine-- toradol prn 6. Anxiety--increased buspar dose 7. UTI with Strep viridans- rocephin finished, recheck UA 8. Weakness with fall--discussed with patient that if she is too weak to go home so now agreeable to consider SNF for strengthening--plus her current living conditions are no very suitable to her lungs--SS looking at [facility] with DC hopefully for today 9. Diarrhea--added flagyl and improved Diagnosis/Problems: Clinical Quality Measures DVT/VTE Risk/Contraindication: Risk Factor Score Per Nursin RFS Level Per Nursing on Admit: 4+=Very High NANNETTE REVELES DO Apr 24, 2016 7:08 pm
[2016-04-24] MEDS: ENOXAPARIN 40 MG/0.4 ML (LOVENOX) SYR SC SCH (22:58)
[2016-04-25] MEDS: RT-ALBUTEROL/IPRATROPIUM 3 ML (DUONEB) VIAL INH SCH ×2 (00:34→06:47)
[2016-04-25] MEDS: RT-ADVAIR HFA 115/21 MCG PER PUFF IH SCH ×2 (00:35→06:50)
[2016-04-25 00:45] VITALS: BP 103/68
[2016-04-25] MEDS: inSUlin (REGULAR) HUMAN 1 UNIT/0.01 ML (CHARGE PER UNIT) SC SCH (06:00)
[2016-04-25] MEDS: PANTOPRAZOLE 40 MG (PROTONIX) TAB PO SCH (06:01)
[2016-04-25 08:05] VITALS: BP 135/81
[2016-04-25] MEDS ORDERED: KETO10TA PO (08:47)
[2016-04-25] MEDS: GLIMEPIRIDE 2 MG (AMARYL) TAB PO SCH (09:15)
[2016-04-25] MEDS: metroNIDAZOLE 500 MG (FLAGYL) TAB PO SCH (09:15)
[2016-04-25] MEDS: GABAPENTIN 300 MG (NEURONTIN) CAP PO SCH (09:15)
[2016-04-25] MEDS: LORazepam 0.5 MG (ATIVAN) TABLET PO SCH (09:15)
[2016-04-25] MEDS: predniSONE 20 MG TAB PO SCH (09:15)
[2016-04-25] MEDS: PROPRANOLOL 20 MG (INDERAL) TABLET PO SCH (09:15)
[2016-04-25] MEDS: TOLTERODINE LA 4 MG (DETROL) CAP PO SCH (09:15)
[2016-04-25] MEDS: busPIRone 5 MG (BUSPAR) TAB PO SCH (09:15)
[2016-04-25] MEDS: KETOROLAC 15 MG/ML VIAL IV PRN (10:40)
--- NOTE | 2016-04-26 18:33 | Discharge Summary ---
Diagnosis/Chief Complaint Date of Admission Apr 13, 2016 at 10:03 am Date of Discharge Apr 25, 2016 at 11:35 am Discharge Date: Apr 25, 2016 Admission Diagnosis Admission Diagnosis 70 yo F Dyspnea- 2-D ECHO- Dr. Perez consulted to read and make recommendations. Review of e-chart- pt had an echo by Dr. eCrda in January 2016 with 55-60% LVEF. BNP nml. troponin neg COPD Exacerbation- methylprednisolone 40mg q6hr IV, MAT protocol, accapella device Headache- toradol 15mg IV (this is what usually aborts them) max dose of 5 over the next couple days. UTI without hematuria- w/ dysuria and back pain- rocephin 1 g, culture pending pt has recurrent uti- would not be surprised if she has multiresistant bacteria. HTN- propranolol 40mg DMII- accuchecks, SSI continue sulfonylurea Obesity- encourage healthy diet and exercise extensive seborrheic keratosis- monitor, consider internal malignancy? h/o hepatic steatosis- monitor, not currently an issue dvt ppx: lovenox Dispo: monitor respiratory status, await urine culture Discharge Diagnosis 1. Stridor, psychogenic--improved 2. UTI with Strep Viridans--completed 7 days of rocephin 3. Exacerbation of COPD--improved 4. Migraine--flare-ups during hospital stay 5. Hypertension--stable 6. Anxiety--meds adjusted 7. Weakness with falls--stronger with PT by time of discharge 8. Diabetes mellitus II Discharge Summary Hospital Course Hospital Course This is a 70 year old female initially admitted for stridor and shortness of air. She was also having dysuria with gross hematuria. She was given numerous treatment modalities for her stridor including racemic epinephrine, inhaled dexamethasone, IV steroids, Labs Laboratory Tests 04/23/16 18:22: Glucometer 271H 04/23/16 21:03: Glucometer 261H 04/24/16 05:22: 04/24/16 08:40: Urine Glucose (UA) 1+H, Urine Leukocyte Esterase 2+H, Urine WBC 5-10H 04/24/16 12:04: 04/24/16 15:39: Glucometer 327H 04/24/16 20:37: Glucometer 199H 04/25/16 06:24: Glucometer 163H Procedures None. Discharge Physical Examination Allergies: Coded Allergies: hydromorphone (Verified Allergy, Mild, STRONG RASH, 10/28/06) Penicillins (Verified Allergy, Unknown, 10/28/06) Sulfa (Sulfonamide Antibiotics) (Verified Allergy, Unknown, 10/28/06) aspirin (Unverified Adverse Reaction, Mild, ASPIRIN SENSITIVE, 08/14/08) sumatriptan (Unverified Adverse Reaction, Mild, PALPITATIONS, 08/14/08) Vitals & I&Os Vital Signs Date Time Temp Pulse Resp B/P Pulse Ox O2 Delivery O2 Flow Rate FiO2 04/25/16 11:35 04/25/16 09:14 Nasal Cannula 2.00 04/25/16 08:05 97.6 69 18 96 Discharge Home Medications Reviewed and agree with Discharge Medication list on patient's Discharge Instruction sheet Instructions to Patient/Family Please see electonic discharge instructions given to patient. Clinical Quality Measures DVT/VTE Risk/Contraindication: Risk Factor Score Per Nursin RFS Level Per Nursing on Admit: 4+=Very High NANNETTE REVELES DO Apr 26, 2016 6:33 pm
[2016-05-16] MEDS ORDERED: PANT40TA2 PO (13:19)
[2016-05-16] MEDS ORDERED: HC A30CR RC (13:19)
[2016-06-12] MEDS ORDERED: LORA0.5T PO (08:28)
== END 2016-04-25 11:35 | disposition home or self-care (01) | DRG 191 ==
LOC: EDUNIT# 07:52 → ER 07:54 → 4TH 10:03
PROVIDERS: ADMIT Family Medicine; ATTEND Family Medicine
DX: J44.1 Chronic obstructive pulmonary disease with (acute) exacerbation (principal); R06.1 Stridor; F54 Psychological and behavioral factors associated with disorders or diseases classified elsewhere; N39.0 Urinary tract infection, site not specified; B95.4 Other streptococcus as the cause of diseases classified elsewhere; G43.909 Migraine, unspecified, not intractable, without status migrainosus; G47.30 Sleep apnea, unspecified; E11.42 Type 2 diabetes mellitus with diabetic polyneuropathy; I10 Essential (primary) hypertension; K21.9 Gastro-esophageal reflux disease without esophagitis; G25.81 Restless legs syndrome; R53.1 Weakness; Z91.81 History of falling; F41.9 Anxiety disorder, unspecified; L82.1 Other seborrheic keratosis; K76.0 Fatty (change of) liver, not elsewhere classified; M79.7 Fibromyalgia; M19.91 Primary osteoarthritis, unspecified site; R25.1 Tremor, unspecified; R19.7 Diarrhea, unspecified; Z99.81 Dependence on supplemental oxygen; Z79.84 Long term (current) use of oral hypoglycemic drugs; Z95.810 Presence of automatic (implantable) cardiac defibrillator
CPT/HCPCS: 36415; 70360; 71010; 71020; 80048; 80053; 80069; 81000; 82962; 83880; 84484; 85007; 85025; 85027; 87077; 87088; 87186; 93005; 93306; 94640; 94760; 96374

== ENCOUNTER 2016-05-05 16:45 | Emergency (ER) | payer MEDICARE ==
[~2016-05-05] VITALS: Ht 162.6 cm; Wt 98.0 kg
[~2016-05-05 16:45] MED LIST changes: +FLUT12AE4 IH; +IPRA3AMP NEB; +KETO10TA PO; +LORA0.5T PO; +TOLT4CAP13 PO
--- OUTSIDE RECORDS SUMMARY | 2016-05-05 16:52 | XMS REPORT | Continuity of Care Document ---
Author Author [facility] Organization [facility] Address Unknown Phone Unavailable Care Team Providers Care Apparel Rental Clerk Name Role Phone NANNETTE REID DO PCP Insurance Providers Payer Name Policy Number Subscriber Name Relationship [employer] Choice [id number] Diana Gregory 18 Self / Same As Patient [facility] [id number] Diana Gregory 18 Self / Same As Patient Advance Directives Directive Response Recorded Date/Time Advance Directives Yes 02/02/14 7:40pm Health Care Power of Trade Union Official No 02/02/14 7:40pm Organ Donor Yes 02/02/14 [...] FACP FACC CCDS (Unspecified) 1 Week Address: [address] [place] [address] [address] [place] [address] Reason(s) for Referral: Please call the office to make a follow up appointment next week with Dr. Cerda. If you have any questions/concerns call the office. NANNETTE REID DO (Unspecified) 1 Week Address: [address] [place] [address] Reason(s) for Referral: Please call the office to make a follow up appointment with Dr. Reid for 1 week. Call the office if you have questions/concerns. Functional Status Query Response Date Recorded Patient Orientation Person Place Time February 03, 2014 10:35pm Comprehension Ability Understands Concepts February 02, 2014 7:40pm Allergies, Adverse Reactions, Alerts Allergen Type Severity Reaction Status Last Updated Penicillins ([id number]) Allergy Unknown Active 10/28/06 Sulfa (Sulfonamide Antibiotics) ([id number]) Allergy Unknown Active 27/09 Aspirin Adverse Reaction [...] F (97.6 - 99.5) Temperature (Calculated Celsius) 36.47526 degrees C (36.4 - 37.5) Temperature Source Temporal Pulse Rate (adult) 68 bpm (60 - 90) Respiratory Rate 20 bpm (12 - 24) O2 Sat by Pulse Oximetry 97 % (88 - 100) Blood Pressure 142/81 mm Hg Pain Pain Intensity 0 Height (Feet) 5 feet Height (Inches) 65.00 inches Height (Calculated Centimeters) 165.183971 cm Weight (Pounds) 205 pounds Weight (Ounces) 9.0 oz Weight (Calculated Grams) 84473.437 gm Weight (Calculated Kilograms) 92.030284 kilograms Calculated BMI 34.28 Results Laboratory Results [...] SELECTED GROUPS OF HIGH RISK PATIENTS. [employer] [place] [employer] CHEST PH[employer]ICI[employer] CONSENSUS CONFERENCE ON ANTITHROMBOTIC THERAPY (2000). Activated Partial Thromboplast Time 20 SEC L 24-35 02/02/2014 6:30pm 04/2013 6:55pm Urine Color YELLOW 02/03/2014 5:57pm 02/03/2014 6:26pm Urine Clarity SLIGHTLY CLOUDY 02/03/2014 5:57pm 02/03/2014 6:26pm Urine pH 6 5-9 02/03/2014 5:57pm 02/03/2014 6:26pm Urine Specific [place] 1.015 * 1.016-1.022 02/03/2014 5:57pm 2013 6:26pm [...] Encounters Encounter Location Date/Time Discharged Inpatient Via [facility] 02/02/14 7:46pm Departed Surgical Day Care Via [facility] 01/06/14 6:09am Recent Diagnosis Chest pain
--- NOTE | 2016-05-05 17:32 | ED GU-Female ---
General Chief Complaint: -Female Stated Complaint: LOWER BACK PAIN, L SIDE PAIN, INCONTINENCE Nursing Triage Note: c/o left flank pain. Noticed symptoms while playing Scrabble this afternoon. Hx of recurrent UTIs. Nursing Sepsis Screen: No Definite Risk Source: patient Exam Limitations: no limitations History of Present Illness Time seen by provider: 17:31 Initial Comments 70-year-old female patient presents to the emergency department complains of left flank pain beginning while playing scrabble this afternoon. Patient does have a history of recurrent urinary tract infections and C. difficile infections. Patient does complain of dysuria. Timing/Duration: this afternoon Severity/Quality: aching, burning Location: left flank, vaginal, urethral Radiation: none Activities at Onset: other (playing Scrabble) Prior Genitourinary Problems: similar symptoms Modifying Factors: Worsens With Palpation, Worsens With Urinating Allergies and Home Medications Allergies Coded Allergies: hydromorphone (Verified Allergy, Mild, STRONG RASH, 10/28/06) Penicillins (Verified Allergy, Unknown, 10/28/06) Sulfa (Sulfonamide Antibiotics) (Verified Allergy, Unknown, 10/28/06) aspirin (Unverified Adverse Reaction, Mild, ASPIRIN SENSITIVE, 08/14/08) sumatriptan (Unverified Adverse Reaction, Mild, PALPITATIONS, 08/14/08) Home Medications Acetaminophen 325 Mg Tablet 650 MG PO Q6H PRN PRN FEVER (Reported) TAKES 2 (325MG) TABLETS Buspirone HCl 5 Mg Tablet #90 10 MG PO TID Prescribed by: NANNETTE REVELES on 04/23/16 1447 Cetirizine HCl 10 Mg Tablet 10 MG PO BID PRN PRN ALLERGIES (Reported) Fluconazole 100 Mg Tablet #7 100 MG PO DAILY Prescribed by: SAVANNAH FRANCIS on 05/05/161926 Fluticasone/Salmeterol 12 Gm Hfa.aer.ad #1 2 PUFF IH BID@ Prescribed by: NANNETTE REVELES on 04/23/16 144 Gabapentin 300 Mg Capsule 300 MG PO BID (Reported) Glimepiride 2 Mg Tablet 2 MG PO BID (Reported) Ipratropium/Albuterol Sulfate 3 Ml Ampul.neb 3 ML NEB Q4H PRN PRN SHORTNESS OF BREATH (Reported) Ketorolac Tromethamine 10 Mg Tablet #20 10 MG PO TID PRN PRN MIGRAINE Prescribed by: NANNETTE REVELES on 04/25/16 0847 Lorazepam 0.5 Mg Tablet #90 0.5 MG PO TID Prescribed by: NANNETTE REVELES on 04/23/16 1447 Metronidazole 500 Mg Tablet #21 500 MG PO TID Prescribed by: NANNETTE REVELES on 04/23/16 1448 Omeprazole 40 Mg Capsule.dr 40 MG PO BID (Reported) Pioglitazone HCl 30 Mg Tablet 30 MG PO DAILY (Reported) LAST FILLED #30 02-27-16 Pramipexole Di-HCl 1 Mg Tablet 1 MG PO 1800 (Reported) Prednisone 20 Mg Tab #5 20 MG PO DAILY Prescribed by: NANNETTE REVELES on 04/23/16 1447 Propranolol HCl 40 Mg Tablet 40 MG PO BID (Reported) Tolterodine Tartrate 4 Mg Cap.er.24h 4 MG PO BID (Reported) Constitutional: No chills, No diaphoresis, No fever, No malaise Respiratory: no symptoms reported Cardiovascular: no symptoms reported Gastrointestinal: No abdominal pain, No constipation, No diarrhea, No nausea, No vomiting Genitourinary: see HPI burningdenies discharge, dysuriadenies frequency, flank paindenies hematuria, pain Musculoskeletal: no symptoms reported Skin: no symptoms reported Psychiatric/Neurological: No Symptoms Reported All Other Systemes Reviewed Negative Unless Noted: Yes (Negative excepted noted.) Past Efqhpjz-Sjnmnj-[id number] Hx Patient Social History Recent Foreign Travel: No Contact w/Someone Who Travel: No Recent Infectious Disease Expo: No Recent Hopitalizations: No Immunizations Up To Date Tetanus Booster (TDap): Unknown PED Vaccines UTD: No Date of Pneumonia Vaccine: May 24, 2012 Date of Influenza Vaccine: Jan 25, 2016 Seasonal Allergies Seasonal Allergies: No Surgeries HX Surgeries: Yes Surgeries: Abdominal, Appendectomy, Cardiac, Defibrillator, Gallbladder, Hysterectomy, Oophorectomy, Pacemaker, Tonsillectomy Respiratory Hx Respiratory Disorders: Yes (COPD) Respiratory Disorders: Pneumonia, Chronic Bronchitis, Sleep Apnea, COPD Cardiovascular Hx Cardiac Disorders: Yes (HX CARDIAC ARREST DURING ENT SURGERY, PACER/ICD) Cardiac Disorders: Irregular Heartbeat Neurological Hx Neurological Disorders: Yes (PERIPHERAL NEUROPATHY) Neurological Disorders: Headaches /Migraines, Neuropathy 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 System Hx 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 Disorders: No Sexually Transmitted Disease: No Female 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 Disorders: Denies 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 Genitourinary Hx Genitourinary Disorders: Yes (RIGHT INTRARENAL STONE) Genitourinary Disorders: Kidney Infection, Bladder Infection, Kidney Stones, UTI-Chronic Gastrointestinal Hx Gastrointestinal Disorders: Yes (c-diff in march 2015) Gastrointestinal Disorders: Gastroesophageal Reflux, Diverticulosis, C-Diff, Hiatal Hernia, Ulcer, Gall Bladder Disease, Irritable Bowel Musculoskeletal Hx Musculoskeletal Disorders: Yes (RESTLESS LEG SYNDROME) Musculoskeletal Disorders: Degenerate Disk Disease, Arthritis, Fibromyalgia Endocrine Hx Endocrine Disorders: Yes Endocrine Disorders: Diabetes, Non-Insulin dep HEENT HX ENT Disorders: Yes HEENT Disorders: Cataract Loss of Vision: Denies Hearing Impairment: Denies Cancer Hx Cancer: No Psychosocial Hx Psychiatric Problems: Yes Behavioral Health Disorders: Anxiety, Depression Integumentary HX Skin/Integumentary Disorder: Yes Skin/Integumentary Disorders: Pruritis Blood Transfusions Hx Blood Disorders: No Adverse Reaction to a Blood Tr: No Reviewed Nursing Assessment Reviewed/Agree w Nursing PMH: Yes Family Medical History Significant Family History: No Pertinent Family Hx Family Medial History: Alzheimer's disease 19 FATHER Cardiovascular disease 19 FATHER 19 MOTHER Completed stroke 19 MOTHER Hypertension 19 FATHER 19 MOTHER Myocardial infarction 19 FATHER 19 MOTHER No Family History of: Diabetes mellitus Physical Exam Vital Signs Vital Sign - Last 12Hours 05/05/16 05/05/16 17:05 20:05 Temp 96.3 Pulse 81 Resp 18 B/P 180/111 Pulse Ox 94 O2 Delivery Room Air Capillary Refill : Less Than 3 Seconds General Appearance: WD/WN no apparent distress Cardiovascular: regular rate, rhythm no murmur Respiratory: lungs clear normal breath sounds no respiratory distress Gastrointestinal: normal bowel sounds softNo distended, No guarding, No rebound, tenderness (bilateral flank tenderness and suprapubic tenderness) Genital/Rectal: other (carly infection noted. ) Back: normal inspection no CVA tenderness Extremities: normal inspection normal capillary refill Neurologic/Psychiatric: alert normal mood/affect oriented x 3 Skin: normal color warm/dry Progress/Results/Core Measures Results/Orders Lab Results Laboratory Tests Test 05/05/16 17:50 05/05/16 18:05 Range/Units Alanine Aminotransferase (ALT/SGPT) 34 0-55 U/L Albumin 3.7 3.2-4.5 G/DL Alkaline Phosphatase 82 40-136 U/L Anion Gap 12 5-14 MMOL/L Aspartate Amino Transf (AST/SGOT) 25 5-34 U/L BUN/Creatinine Ratio 20 Basophils # (Auto) 0.0 0.0-0.1 10^3/uL Basophils (%) (Auto) 0 0-10 % Blood Urea Nitrogen 16 7-18 MG/DL Calcium Level 9.2 8.5-10.1 MG/DL Carbon Dioxide Level 23 21-32 MMOL/L Chloride Level 104 98-107 MMOL/L Creatinine 0.81 0.60-1.30 MG/DL Eosinophils # (Auto) 0.2 0.0-0.3 10^3/uL Eosinophils (%) (Auto) 2 0-10 % Estimat Glomerular Filtration Rate > 60 Glucose Level 217 H 70-105 MG/DL Hematocrit 44 35-52 % Hemoglobin 14.9 11.5-16.0 G/DL Lipase 14 8-78 U/L Lymphocytes # (Auto) 2.9 1.0-4.0 X 10^3 Lymphocytes (%) (Auto) 28 12-44 % Mean Corpuscular Hemoglobin 30 25-34 PG Mean Corpuscular Hemoglobin Concent 34 32-36 G/DL Mean Corpuscular Volume 90 80-99 FL Mean Platelet Volume 9.8 7.4-10.4 FL Monocytes # (Auto) 0.6 0.0-1.0 X 10^3 Monocytes (%) (Auto) 6 0-12 % Neutrophils # (Auto) 6.7 1.8-7.8 X 10^3 Neutrophils (%) (Auto) 64 42-75 % Platelet Count 216 130-400 10^3/uL Potassium Level 3.9 3.6-5.0 MMOL/L Red Blood Count 4.95 4.35-5.85 10^6/uL Red Cell Distribution Width 13.2 10.0-14.5 % Sodium Level 139 135-145 MMOL/L Total Bilirubin 0.7 0.1-1.0 MG/DL Total Protein 6.3 L 6.4-8.2 G/DL White Blood Count 10.6 4.3-11.0 10^3/uL Urine Bacteria TRACE /HPF Urine Bilirubin NEGATIVE NEGATIVE Urine Casts PRESENT /LPF Urine Clarity CLEAR Urine Color YELLOW Urine Crystals NONE /LPF Urine Culture Indicated NO Urine Glucose (UA) 3+ H NEGATIVE Urine Hyaline Casts RARE /LPF Urine Ketones 2+ H NEGATIVE Urine Leukocyte Esterase 1+ H NEGATIVE Urine Mucus SMALL H /LPF Urine Nitrite NEGATIVE NEGATIVE Urine Protein 1+ H NEGATIVE Urine RBC NONE /HPF Urine RBC (Auto) 1+ H NEGATIVE Urine Renal Epithelial Cells NONE /HPF Urine Specific [place] 1.025 H 1.016-1.022 Urine Squamous Epithelial Cells 0-2 /HPF Urine Urobilinogen NORMAL NORMAL MG/DL Urine WBC 2-5 /HPF Urine pH 5 5-9 My Orders Orders-SAVANNAH FRANCIS Ua Culture If Indicated (05/05/16 17:11) Saline Lock/Iv-Start (05/05/16 17:44) Bladder Scan (05/05/16 17:44) Cbc With Automated Diff (05/05/16 17:44) Comprehensive Metabolic Panel (05/05/16 17:44) Lipase (05/05/16 17:44) Straight Cath (Urinary) (05/05/16 17:45) Ns Iv 1000 Ml (Sodium Chloride 0.9%) (05/05/16 18:45) Fluconazole Tablet (Ed Only) (Diflucan T (05/05/16 19:30) Medications Given in ED Vital Signs/I&O Blood Pressure Mean: 134 Departure Communication Progress Notes Laboratory findings discussed with the patient. Patient was given IV fluids in the emergency department as well as Diflucan. Plan for discharge to home. Patient instructed to follow-up with Dr. Orantes as an outpatient for recheck. All return precautions were discussed with the patient as described in the discharge instructions of this report. Patient voices understanding and agrees with the treatment plan. Impression Impression: Primary Impression: Volume depletion Additional Impression: Candidal vulvovaginitis Disposition: HOME, SELF-CARE Condition: Improved Departure-Patient Inst. Decision time for Depature: 19:25 Referrals: NANNETTE REVELES DO (PCP/Family) Primary Care Physician Patient Instructions: Dehydration, Adult (DC), Vaginal Yeast Infection (DC) Add. Discharge Instructions: All discharge instructions reviewed with patient and/or family. Voiced understanding. Medications as instructed. Drink plenty of fluids. Monitor blood sugar closely. [id number]-[id number] Monistat cream topically twice daily as needed for itching and burning of the vulva. Follow-up with Dr. saab this week for recheck, call first thing Saturday for appointment time. Return to the emergency department for worsened pain, fever, vomiting, inability to urinate, blood in the urine, abdominal swelling, or any other concerns. Scripts Fluconazole (Diflucan)100 Mg [id number] Mg PO DAILY #7 TAB Ref 0 Prov:SAVANNAH FRANCIS 05/05/16 SAVANNAH FRANCIS May 05, 2016 17:32 Disposition: 01 HOME, SELF-CARE Condition: Improved Departure-Patient Inst. Decision time for Depature: 19:25 Referrals: NANNETTE REVELES DO (PCP/Family) Primary Care Physician Patient Instructions: Dehydration, Adult (DC), Vaginal Yeast Infection (DC) Add. Discharge Instructions: All discharge instructions reviewed with patient and/or family. Voiced understanding. Medications as instructed. Drink plenty of fluids. Monitor blood sugar closely. Mqag-vgb-lsyrqdp Monistat cream topically twice daily as needed for itching and burning of the vulva. Follow-up with Dr. saab this week for recheck, call first thing Saturday for appointment time. Return to the emergency department for worsened pain, fever, vomiting, inability to urinate, blood in the urine, abdominal swelling, or any other concerns. Scripts Fluconazole (Diflucan)100 Mg [id number] Mg PO DAILY #7 TAB Ref 0 Prov:SAVANNAH FRANCIS 05/05/16 SAVANNAH FRANCIS May 05, 2016 17:32
[2016-05-05 18:03] LABS: BASOPHILS % (AUTO) 0 % (0-10); EOSINOPHILS # (AUTO) 0.2 10^3/uL (0.0-0.3); EOSINOPHILS % (AUTO) 2 % (0-10); LYMPHOCYTES # (AUTO) 2.9 X 10^3 (1.0-4.0); LYMPHOCYTES % (AUTO) 28 % (12-44); MEAN CORPUSCULAR HEMOGLOBIN 30 PG (25-34); MEAN CORPUSCULAR HGB CONC 34 G/DL (32-36); MEAN CORPUSCULAR VOLUME 90 FL (80-99); MEAN PLATELET VOLUME 9.8 FL (7.4-10.4); MONOCYTES # (AUTO) 0.6 X 10^3 (0.0-1.0); MONOCYTES % (AUTO) 6 % (0-12); NEUTROPHILS # (AUTO) 6.7 X 10^3 (1.8-7.8); NEUTROPHILS % (AUTO) 64 % (42-75); PLATELET COUNT 216 10^3/uL (130-400); RED BLOOD COUNT 4.95 10^6/uL (4.35-5.85); RED CELL DISTRIBUTION WIDTH 13.2 % (10.0-14.5); WHITE BLOOD COUNT 10.6 10^3/uL (4.3-11.0)
[2016-05-05 18:22] LABS: BILIRUBIN,URINE NEGATIVE (NEGATIVE); KETONES,URINE 2+ (NEGATIVE); LEUKOCYTE ESTERASE ,URINE 1+ (NEGATIVE); NITRITE,URINE NEGATIVE (NEGATIVE); PH,URINE 5 (5-9); PROTEIN,URINE 1+ (NEGATIVE); UROBILINOGEN,URINE NORMAL (NORMAL)
[2016-05-05 18:31] LABS: HYALINE CASTS, URINE RARE /LPF; SQUAMOUS EPITHELIAL CELL,UR 0-2 /HPF
[2016-05-05 18:38] LABS: ALANINE AMINOTRANSFERASE 34 U/L (0-55); ALBUMIN 3.7 G/DL (3.2-4.5); ANION GAP 12 MMOL/L (5-14); ASPARTATE AMINO TRANSFERASE 25 U/L (5-34); BILIRUBIN,TOTAL 0.7 MG/DL (0.1-1.0); BLOOD UREA NITROGEN 16 MG/DL (7-18); BUN/CREATININE RATIO 20; CALCIUM 9.2 MG/DL (8.5-10.1); CARBON DIOXIDE 23 MMOL/L (21-32); CHLORIDE 104 MMOL/L (98-107); CREATININE SERUM 0.81 MG/DL (0.60-1.30); GFR ESTIMATED > 60; GLUCOSE 217 MG/DL (70-105); LIPASE 14 U/L (8-78); POTASSIUM 3.9 MMOL/L (3.6-5.0); SODIUM 139 MMOL/L (135-145); TOTAL PROTEIN 6.3 G/DL (6.4-8.2)
[2016-05-05] MEDS ORDERED: NS IV 1000 ML 1,000 ML IV ONE (18:45)
[2016-05-05] MEDS ORDERED: FLUC100T PO (19:27)
[2016-05-05] MEDS ORDERED: FLUCONAZOLE 150 MG TABLET (ED ONLY) PO ONE (19:30)
[2016-05-05 20:05] VITALS: BP 139/62
[2016-05-16] MEDS ORDERED: HC A30CR RC (13:19)
[2016-05-16] MEDS ORDERED: PANT40TA2 PO (13:19)
== END 2016-05-05 20:05 | disposition home or self-care (01) ==
LOC: EDUNIT# 16:45 → ER 16:46
DX: E86.9 Volume depletion, unspecified (principal); B37.3 Candidiasis of vulva and vagina; Z79.899 Other long term (current) drug therapy
CPT/HCPCS: 36415; 80053; 81000; 83690; 85025; 96360

== ENCOUNTER 2016-05-14 06:16 | Outpatient (CLI) | payer MEDICARE ==
[~2016-05-14] VITALS: Ht 162.6 cm; Wt 101.2 kg
[~2016-05-14 06:16] MED LIST changes: +FLUC100T PO
--- OUTSIDE RECORDS SUMMARY | 2016-05-14 06:21 | XMS REPORT | Continuity of Care Document ---
Author Author [facility] Organization [facility] Address Unknown Phone Unavailable Care Team Providers Care Cane Loader Name Role Phone NANNETTE REID DO PCP Insurance Providers Payer Name Policy Number Subscriber Name Relationship [employer] Gold Choice [id number] Diana Gregory 18 Self / Same As Patient [facility] [id number] Diana Gregory 18 Self / Same As Patient Advance Directives Directive Response Recorded Date/Time Advance Directives Yes 02/02/14 7:40pm Health Care Power of Light Armored Vehicle Officer No 02/02/14 7:40pm Organ Donor Yes 02/02/14 [...] FACP FACC CCDS (Unspecified) 1 Week Address: [address] [place] [address] [place] [address] [place] [address] Reason(s) for Referral: Please call the office to make a follow up appointment next week with Dr. Cerda. If you have any questions/concerns call the office. NANNETTE REID DO (Unspecified) 1 Week Address: [address] [place] [address] Reason(s) for Referral: Please call the office to make a follow up appointment with Dr. Reid for 1 week. Call the office if you have questions/concerns. Functional Status Query Response Date Recorded Patient Orientation Person Place Time February 03, 2014 10:35pm Comprehension Ability Understands Concepts February 02, 2014 7:40pm Allergies, Adverse Reactions, Alerts Allergen Type Severity Reaction Status Last Updated Penicillins ([id number]) Allergy Unknown Active 10/28/06 Sulfa (Sulfonamide Antibiotics) ([id number]) Allergy Unknown Active 27/09 Aspirin Adverse Reaction [...] F (97.6 - 99.5) Temperature (Calculated Celsius) 36.03562 degrees C (36.4 - 37.5) Temperature Source Temporal Pulse Rate (adult) 68 bpm (60 - 90) Respiratory Rate 20 bpm (12 - 24) O2 Sat by Pulse Oximetry 97 % (88 - 100) Blood Pressure 142/81 mm Hg Pain Pain Intensity 0 Height (Feet) 5 feet Height (Inches) 65.00 inches Height (Calculated Centimeters) 165.168471 cm Weight (Pounds) 205 pounds Weight (Ounces) 9.0 oz Weight (Calculated Grams) 69190.437 gm Weight (Calculated Kilograms) 92.303850 kilograms Calculated BMI 34.28 Results Laboratory Results [...] SELECTED GROUPS OF HIGH RISK PATIENTS. SIX[employer] [place] [employer] CHEST PH[employer] CONSENSUS CONFERENCE ON ANTITHROMBOTIC THERAPY (2000). Activated Partial Thromboplast Time 20 SEC L 24-35 02/02/2014 6:30pm 04/2013 6:55pm Urine Color YELLOW 02/03/2014 5:57pm 02/03/2014 6:26pm Urine Clarity SLIGHTLY CLOUDY 02/03/2014 5:57pm 02/03/2014 6:26pm Urine pH 6 5-9 02/03/2014 5:57pm 02/03/2014 6:26pm Urine Specific [place] 1.015 * 1.016-1.022 02/03/2014 5:57pm 2013 6:26pm [...] Encounters Encounter Location Date/Time Discharged Inpatient Via [facility] 02/02/14 7:46pm Departed Surgical Day Care Via [facility] 01/06/14 6:09am Recent Diagnosis Chest pain
[2016-05-14] MEDS ORDERED: LORA0.5T PO (12:59)
[2016-05-14] MEDS ORDERED: BUSP10TA95 PO (12:59)
[2016-05-16] MEDS ORDERED: PANT40TA2 PO (13:19)
[2016-05-16] MEDS ORDERED: HC A30CR RC (13:19)
== END 2016-05-14 13:00 ==
LOC: PREOP 06:16
PROVIDERS: ATTEND Surgery Pediatric Surgery
DX: Z01.818 Encounter for other preprocedural examination (principal); K21.9 Gastro-esophageal reflux disease without esophagitis; Z87.19 Personal history of other diseases of the digestive system

== ENCOUNTER 2016-05-16 09:45 | Day surgery (SDC) | payer MEDICARE ==
[~2016-05-16] VITALS: Ht 162.6 cm; Wt 101.2 kg
[~2016-05-16 09:45] MED LIST changes: +BUSP10TA95 PO
--- OUTSIDE RECORDS SUMMARY | 2016-05-16 09:50 | XMS REPORT | Continuity of Care Document ---
Author Author [facility] Organization [facility] Address Unknown Phone Unavailable Care Team Providers Care Cost Control Specialist Name Role Phone NANNETTE REID DO PCP Insurance Providers Payer Name Policy Number Subscriber Name Relationship [employer] Choice [id number] Diana Gregory 18 Self / Same As Patient [facility] [id number] Diana Gregory 18 Self / Same As Patient Advance Directives Directive Response Recorded Date/Time Advance Directives Yes 02/02/14 7:40pm Health Care Power of Quick Service Technician No 02/02/14 7:40pm Organ Donor Yes 02/02/14 [...] FACP FACC CCDS (Unspecified) 1 Week Address: [address] [place] [address] [place] [address] [place] [address] Reason(s) for Referral: Please call the office to make a follow up appointment next week with Dr. Cerda. If you have any questions/concerns call the office. NANNETTE REID DO (Unspecified) 1 Week Address: [address] [place] [address] Reason(s) for Referral: Please call the office to make a follow up appointment with Dr. Reid for 1 week. Call the office if you have questions/concerns. Functional Status Query Response Date Recorded Patient Orientation Person Place Time February 03, 2014 10:35pm Comprehension Ability Understands Concepts February 02, 2014 7:40pm Allergies, Adverse Reactions, Alerts Allergen Type Severity Reaction Status Last Updated Penicillins ([id number]) Allergy Unknown Active 10/28/06 Sulfa (Sulfonamide Antibiotics) ([id number]) Allergy Unknown Active 27/09 Aspirin Adverse Reaction [...] F (97.6 - 99.5) Temperature (Calculated Celsius) 36.73608 degrees C (36.4 - 37.5) Temperature Source Temporal Pulse Rate (adult) 68 bpm (60 - 90) Respiratory Rate 20 bpm (12 - 24) O2 Sat by Pulse Oximetry 97 % (88 - 100) Blood Pressure 142/81 mm Hg Pain Pain Intensity 0 Height (Feet) 5 feet Height (Inches) 65.00 inches Height (Calculated Centimeters) 165.076616 cm Weight (Pounds) 205 pounds Weight (Ounces) 9.0 oz Weight (Calculated Grams) 49956.437 gm Weight (Calculated Kilograms) 92.687598 kilograms Calculated BMI 34.28 Results Laboratory Results [...] SELECTED GROUPS OF HIGH RISK PATIENTS. SIXTH [place] [employer] CHEST PH[employer]ICI[employer] CONSENSUS CONFERENCE ON ANTITHROMBOTIC THERAPY (2000). Activated Partial Thromboplast Time 20 SEC L 24-35 02/02/2014 6:30pm 04/2013 6:55pm Urine Color YELLOW 02/03/2014 5:57pm 02/03/2014 6:26pm Urine Clarity SLIGHTLY CLOUDY 02/03/2014 5:57pm 02/03/2014 6:26pm Urine pH 6 5-9 02/03/2014 5:57pm 02/03/2014 6:26pm Urine Specific [place] 1.015 * 1.016-1.022 02/03/2014 5:57pm 2013 6:26pm [...] Encounters Encounter Location Date/Time Discharged Inpatient Via [facility] 02/02/14 7:46pm Departed Surgical Day Care Via [facility] 01/06/14 6:09am Recent Diagnosis Chest pain
--- OUTSIDE RECORDS SUMMARY | 2016-05-16 09:50 | XMS REPORT | Continuity of Care Document ---
Author Author [facility] Organization [facility] Address Unknown Phone Unavailable Care Team Providers Care Freelance Patternmaker Name Role Phone NANNETTE REID DO PCP Insurance Providers Payer Name Policy Number Subscriber Name Relationship [employer] Choice [id number] Diana Gregory 19 Self / Same As Patient [facility] [id number] Diana Gregory 19 Self / Same As Patient Advance Directives Directive Response Recorded Date/Time Advance Directives Yes 02/02/14 7:40pm Health Care Power of Information Technology Data Analyst No 02/02/14 7:40pm Organ Donor Yes 02/02/14 [...] FACP FACC CCDS (Unspecified) 1 Week Address: [address] [place] [address] [address] [place] [address] Reason(s) for Referral: Please call the office to make a follow up appointment next week with Dr. Cerda. If you have any questions/concerns call the office. NANNETTE REID DO (Unspecified) 1 Week Address: [address] [place] [address] Reason(s) for Referral: Please call the office to make a follow up appointment with Dr. Reid for 1 week. Call the office if you have questions/concerns. Functional Status Query Response Date Recorded Patient Orientation Person Place Time February 03, 2014 10:35pm Comprehension Ability Understands Concepts February 02, 2014 7:40pm Allergies, Adverse Reactions, Alerts Allergen Type Severity Reaction Status Last Updated Penicillins ([id number]) Allergy Unknown Active 10/28/06 Sulfa (Sulfonamide Antibiotics) ([id number]) Allergy Unknown Active 27/09 Aspirin Adverse Reaction [...] F (97.6 - 99.5) Temperature (Calculated Celsius) 36.30914 degrees C (36.4 - 37.5) Temperature Source Temporal Pulse Rate (adult) 68 bpm (60 - 90) Respiratory Rate 20 bpm (12 - 24) O2 Sat by Pulse Oximetry 97 % (88 - 100) Blood Pressure 142/81 mm Hg Pain Pain Intensity 0 Height (Feet) 5 feet Height (Inches) 65.00 inches Height (Calculated Centimeters) 165.619643 cm Weight (Pounds) 205 pounds Weight (Ounces) 9.0 oz Weight (Calculated Grams) 34433.437 gm Weight (Calculated Kilograms) 92.373158 kilograms Calculated BMI 34.28 Results Laboratory Results [...] SELECTED GROUPS OF HIGH RISK PATIENTS. [employer] CONSENSUS CONFERENCE ON ANTITHROMBOTIC THERAPY (2000). Activated Partial Thromboplast Time 20 SEC L 24-35 02/02/2014 6:30pm 04/2013 6:55pm Urine Color YELLOW 02/03/2014 5:57pm 02/03/2014 6:26pm Urine Clarity SLIGHTLY CLOUDY 02/03/2014 5:57pm 02/03/2014 6:26pm Urine pH 6 5-9 02/03/2014 5:57pm 02/03/2014 6:26pm Urine Specific [place] 1.015 * 1.016-1.022 02/03/2014 5:57pm 2013 6:26pm [...] Encounters Encounter Location Date/Time Discharged Inpatient [facility] 02/02/14 7:46pm Departed Surgical Day Care [facility] 01/06/14 6:09am Recent Diagnosis Chest pain
[2016-05-16] MEDS ORDERED: NS IV 500 ML 500 ML ONE (10:15)
[2016-05-16] MEDS ORDERED: FLUMAZENIL (ROMAZICON) 0.1 MG/ML 5 ML VIAL INJ PRN (10:15)
[2016-05-16] MEDS ORDERED: NS IV 500 ML 500 ML IV SCH (10:15)
[2016-05-16] MEDS ORDERED: HURRICAINE EXT TUBE (BENZOCAINE) XX PRN (10:15)
[2016-05-16] MEDS ORDERED: LIDOCAINE JELLY 2% (XYLOCAINE) 5 ML TUBE MM PRN (10:15)
[2016-05-16] MEDS ORDERED: NALOXONE 0.4 MG/ML 1 ML (NARCAN) VIAL IVP PRN (10:15)
--- NOTE | 2016-05-16 10:18 | Conscious Sedation/ASA ---
Conscious Sedation Pre-Proced Time Reviewed: 10:15 ASA Class: 2 Airway Mallampati Classification: ([place] appropriate class) I. II. III, IV Lungs Heart ASA score ASA 1: a normal healthy patient ASA 2: a patient with a mild systemic disease (mid diabetes, controlled hypertension, obesity ASA 3: a patient with a severe systemic disease that limits activity (angina , COPD, prior Myocardial infarction) ASA 4: a patient with an incapacitating disease that is a constant threat to life (CHF, renal failure) ASA 5: a moribund patient not expected to survive 24 hrs. (ruptured aneurysm) ASA 6: a declared brain patient whose organs are being harvested. For emergent operations, add the letter E after the classification Grade 2 Sedation Plan: Analgesia, Amnesia, Plan communicated to team members, Discussed options with patient/fam, Discussed risks with patient/fam Note The patient is an appropriate candidate to undergo the planned procedure, sedation, and anesthesia. The patient immediately re-assessed prior to indication. GRANT CARSON MD May 16, 2016 10:18 am
--- NOTE | 2016-05-16 10:19 | Progress Note-Pre Operative ---
Pre-Operative Progress Note H&P Reviewed The H&P was reviewed, patient examined and no changes noted. Date H&P Reviewed: May 16, 2016 Time H&P Reviewed: 10:15 Pre-Operative Diagnosis: dysphagia, change in bowel habits GRANT CARSON MD May 16, 2016 10:19 am
[2016-05-16 10:25] VITALS: BP 130/72
[2016-05-16] MEDS ORDERED: HYDROcodone/APAP 5 MG/325 MG (LORTAB) TAB PO PRN (10:30)
[2016-05-16] MEDS ORDERED: morphine INJ 10 MG/ML 1ML (SYR OR VIAL) IV PRN (10:30)
[2016-05-16] MEDS ORDERED: ACETAMINOPHEN 325 MG TABLET/CAPLET (TYLENOL) PO PRN (10:30)
[2016-05-16] MEDS ORDERED: ONDANSETRON 4 MG/2 ML (SDV) Z0FRAN IV PRN (10:30)
[2016-05-16] MEDS ORDERED: fentaNYL INJECTION 100 MCG/2 ML AMP ONE ×3 (12:04→13:00)
[2016-05-16] MEDS ORDERED: MIDAZOLAM 2 MG/2 ML (VERSED) VIAL ONE ×4 (12:05)
[2016-05-16] MEDS ORDERED: LIDOCAINE JELLY 2% (XYLOCAINE) 5 ML TUBE ONE (12:06)
[2016-05-16] MEDS: MIDAZOLAM 2 MG/2 ML (VERSED) VIAL IVP PRN ×4 (12:27→12:51)
[2016-05-16] MEDS: fentaNYL INJECTION 100 MCG/2 ML AMP IVP PRN ×5 (12:28→13:02)
--- NOTE | 2016-05-16 13:17 | Progress Note-Post Operative ---
Post-Operative Progess Note Pre-Operative Diagnosis dysphagia, change in bowel habits Post-Operative Diagnosis reflux esophagitis(class B0, mild distal esophageal stricture, moderate gastritis. Post-Op Procedure Note Date of Procedure: May 16, 2016 Name of Procedure: EGD with bx and dilatation. Colonoscopy Anesthesia Type CS Estimated blood loss (mL): minimal Specimen(s) collected GE jxn, antrum GRANT CARSON MD May 16, 2016 1:17 pm
[2016-05-16] MEDS ORDERED: PANT40TA2 PO (13:19)
[2016-05-16] MEDS ORDERED: HC A30CR RC (13:19)
--- NOTE | 2016-05-16 13:20 | Discharge Inst-Surgical ---
D/C Lap Instructions-KIDO New, Converted, or Re-Newed RX: RX on Chart Follow Up Appt in 6 weeks Activity as tolerated High Fiber Diet 25g or more per day Avoid Alcohol, Caffeine, Spicy [place] and Acid foods. Drink 64 fluid oz or more of fluids per day. Symptoms to Report: Fever over 101 degree F, Nausea/Vomiting If any problems/questions: Contact your physician or go to Emergency Room GRANT CARSON MD May 16, 2016 1:20 pm
[2016-05-16 13:40] VITALS: BP 132/77
[2016-05-16 14:20] VITALS: BP 145/73
[2016-05-16 15:07] VITALS: BP 145/73
--- NOTE | 2016-05-17 09:37 | OPERATIVE REPORT ---
PROCEDURE PHYSICIAN: GRANT BALDERAS DATE OF PROCEDURE: 05/16/2016 ATTENDING PRIMARY CARE PHYSICIAN: Dr. Reid. PREOPERATIVE DIAGNOSES: 1. Dysphagia. 2. Reflux. 3. Chronic cough. 4. History of Clostridium difficile colitis. 5. History of colon polyp. POSTOPERATIVE DIAGNOSES: 1. Reflux esophagitis, class B. 2. Mild distal esophageal stricture. 3. Intact previous hiatal hernia repair and wrap. 4. Moderate severity gastritis. 5. Chronic external hemorrhoidal cushion. 6. Chronic stage II internal hemorrhoid, more on the left inferior segment. 7. Moderate sigmoid diverticulosis. PROCEDURE: 1. EGD with biopsy and dilatation. 2. Colonoscopy. SURGEON: Dr. Balderas. ANESTHESIA: Conscious sedation. ESTIMATED BLOOD LOSS: Minimal. FINDINGS: EGD: 1. Reflux esophagitis, class B. 2. Mild distal esophageal stricture. 3. Intact previous hiatal hernia repair and wrap. 4. Moderate severity gastritis with multiple small all approximately 1 to 2 mm in size. 5. No ulcers. COLONOSCOPY: 1. Chronic stage III left inferolateral hemorrhoidal cushion with an adjacent chronic stage II internal hemorrhoid. 2. Moderate sigmoid diverticulosis. DISPOSITION: The patient tolerated the procedure well. Ms. Diana Gregory is a 70-year-old female with history of diverticulosis, as well as Clostridium difficile colitis. She also states that she was admitted in the hospital for dysphasia as well as choking. She has reports of this has been an ongoing issue for some time. She reports that this has worsened. She has a history of gastroesophageal reflux disease and did undergo a hiatal hernia repair, as well as a [place] fundoplication around 1997. She also reports some epigastric fullness sensation after food boluses. She also has had a history of hemorrhoids requiring a hemorrhoidectomy several years ago. She does report that she has been more constipated recently and has had some irritation of hemorrhoids as well as small amounts of blood. She also reports that she has had previous colonoscopies and she has had previous polyps which were benign. PROCEDURE: The patient was brought to the endoscopy suite, laid in the left lateral decubitus position with the head slightly elevated. After adequate IV pain and sedative medications and conscious sedation anesthesia, the mouthpiece was applied. The endoscope was placed in the mouth, visualizing the pharynx and hypopharyngeal region. Vocal cords, epiglottis and vallecula identified and appeared to be normal. The endoscope was then intubated into the esophagus and the esophagus insufflated. The endoscope was then advanced through the first, second, and 3rd portions esophagus. At the level of the GE junction, a reflux esophagitis, class B identified. There was also a mild distal esophageal stricture. A biopsy was taken with forceps with visualization of good hemostasis. The endoscope was then advanced into stomach and endoscope retroflexed. There was no recurrent hiatal hernia, as well as an intact previous wrap. There was moderate severity gastritis. There were also multiple small gastric polyps, which are approximately 1 to 2 mm in size. There were no formal ulcers or any neoplasms identified. A biopsy was taken of the stomach antrum, with forceps with visualization of good hemostasis. The endoscope was then advanced through the pylorus into the first and second portions of duodenum which appeared normal. The endoscope was then slowly withdrawn while to take a second look and suctioning of residual air with no additional findings. We then decided to proceed with dilatation of the distal esophageal stricture. A CRE fixed guidewire balloon catheter was then placed in the stomach and drawn back to the area of the esophageal stricture. We then proceeded with 3 atmospheres of pressure or 18 mm with no resistance. We then proceeded to 4.5 atmospheres of pressure or 19 mm with mild resistance. We then proceeded to 6 atmospheres of pressure or 20 mmHg pressure with mild to moderate resistance and left this in place for approximately 60 seconds. The balloon was then desufflated and removed. There were no mucosal tears or any bleeding identified. The endoscope was then slowly withdrawn while taking a second look and suctioning of residual air with no additional findings. The patient tolerated this portion the procedure well. We will have her continue with medical management with necessary lifestyle and diet accommodation including smaller, more frequent meals, avoidance of eating at night, as well as head elevation while lying supine. She also needs to proceed with a proper diet and exercise with the recommendation of the high protein diet with lean meat protein sources as well as regularly scheduled exercise for which should help her reflux type of symptoms, as well as respiratory status. We will also start her on Protonix 40 mg daily. COLONOSCOPY: Under the same conscious sedation anesthesia, we then proceeded with the colonoscopy portion the procedure. A digital rectal examination was performed. Normal sphincter tone was felt. We then proceeded with placement of an anoscope under direct visualization. There was a chronic stage III external hemorrhoidal cushion identified on the left and inferior portion of the anus. The previous hemorrhoidectomy appeared to be more on the right side. Adjacent to this and proximal was a stage II internal hemorrhoidal cushion, not actively edematous or inflamed. The endoscope was then intubated into the anus and the rectum gently insufflated. The endoscope was then advanced through the valves of Hernandez the rectum with no polyps or any neoplasms identified. The endoscope was then advanced through the sigmoid colon where a moderate sigmoid diverticulosis identified. There were no mucosal inflammatory changes to indicate any active diverticulitis. The endoscope was then advanced through the descending, transverse, and ascending colon of the cecum. These segments were normal. There were no polyps or any neoplasms identified throughout the colon or rectum. The endoscope was then slowly withdrawn while taking a second look and suctioning of residual air with no additional findings. The patient tolerated the procedure well. We will have her continue with medical management with a high fiber diet with at least 30 grams of fiber per day, as well as at least 64 fluid ounces of water daily to promote soft stools on a daily basis. We will also proceed with a trial of Analpram, to help with her symptoms. If she continues to be symptomatic despite maximal medical therapy, we will then recommend formal excision of the left lateral hemorrhoidal plexus. Job ID: [id number] Dictated Date: 05/16/2016 13:30:26 Foreign Language Instructor Date: 05/17/2016 09:19:03 / aldo
== END 2016-05-16 15:00 | disposition home or self-care (01) ==
LOC: ENDO 09:45
PROVIDERS: ATTEND Surgery Pediatric Surgery
DX: K21.0 Gastro-esophageal reflux disease with esophagitis (principal); K22.2 Esophageal obstruction; K57.90 Diverticulosis of intestine, part unspecified, without perforation or abscess without bleeding; K29.70 Gastritis, unspecified, without bleeding; K64.1 Second degree hemorrhoids; K64.4 Residual hemorrhoidal skin tags; E11.9 Type 2 diabetes mellitus without complications; J44.9 Chronic obstructive pulmonary disease, unspecified; Z79.899 Other long term (current) drug therapy
CPT/HCPCS: 88305; 88342

== ENCOUNTER 2016-06-07 17:37 | Emergency (ER) | payer MEDICARE ==
[~2016-06-07] VITALS: Ht 162.6 cm; Wt 102.5 kg
[~2016-06-07 17:37] MED LIST changes: +HC A30CR RC; +PANT40TA2 PO
[2016-06-07] MEDS ORDERED: RT-ALBUTEROL/IPRATROPIUM 3 ML (DUONEB) VIAL INH ONE ×2 (18:45→20:45)
[2016-06-07 19:05] LABS: BASOPHILS # (AUTO) 0.1 10^3/uL (0.0-0.1); BASOPHILS % (AUTO) 1 % (0-10); EOSINOPHILS # (AUTO) 0.6 10^3/uL (0.0-0.3); EOSINOPHILS % (AUTO) 6 % (0-10); LYMPHOCYTES # (AUTO) 2.3 X 10^3 (1.0-4.0); LYMPHOCYTES % (AUTO) 23 % (12-44); MEAN CORPUSCULAR HEMOGLOBIN 30 PG (25-34); MEAN CORPUSCULAR HGB CONC 34 G/DL (32-36); MEAN CORPUSCULAR VOLUME 91 FL (80-99); MEAN PLATELET VOLUME 9.7 FL (7.4-10.4); MONOCYTES # (AUTO) 0.6 X 10^3 (0.0-1.0); MONOCYTES % (AUTO) 6 % (0-12); NEUTROPHILS # (AUTO) 6.6 X 10^3 (1.8-7.8); NEUTROPHILS % (AUTO) 65 % (42-75); PLATELET COUNT 307 10^3/uL (130-400); RED BLOOD COUNT 4.48 10^6/uL (4.35-5.85); RED CELL DISTRIBUTION WIDTH 13.5 % (10.0-14.5); WHITE BLOOD COUNT 10.1 10^3/uL (4.3-11.0)
[2016-06-07 19:20] LABS: PROTHROMBIN TIME PATIENT 12.4 SEC (12.2-14.7)
--- NOTE | 2016-06-07 19:21 | Diagnostic Imaging Report ---
INDICATION: Cough and shortness of breath and wheezing. TECHNIQUE: PA and lateral chest obtained at 7:29 p.m. and compared to 04/20/2016. FINDINGS: Heart is normal in size. Aorta is tortuous. Pacemaker device is unchanged. There is no acute infiltrate or edema or pleural fluid. IMPRESSION: Tortuous aorta. Pacemaker device is unchanged. No acute infiltrate or pleural fluid. Dictated by: Dictated on workstation # [id number]
[2016-06-07 19:29] LABS: ALANINE AMINOTRANSFERASE 26 U/L (0-55); ALBUMIN 3.6 G/DL (3.2-4.5); ANION GAP 10 MMOL/L (5-14); ASPARTATE AMINO TRANSFERASE 30 U/L (5-34); BILIRUBIN,TOTAL 0.4 MG/DL (0.1-1.0); BLOOD UREA NITROGEN 11 MG/DL (7-18); BUN/CREATININE RATIO 13; CALCIUM 9.1 MG/DL (8.5-10.1); CARBON DIOXIDE 25 MMOL/L (21-32); CHLORIDE 104 MMOL/L (98-107); CREATININE SERUM 0.83 MG/DL (0.60-1.30); GFR ESTIMATED > 60; GLUCOSE 226 MG/DL (70-105); POTASSIUM 4.3 MMOL/L (3.6-5.0); SODIUM 139 MMOL/L (135-145); TOTAL PROTEIN 6.4 G/DL (6.4-8.2)
--- NOTE | 2016-06-07 19:29 | ED General ---
General Chief Complaint: Cough/Cold/Flu Symptoms Stated Complaint: MIGRAINE,COUGH Nursing Triage Note: pt c/o cough, soa worsening since yesterday. hospitalized a couple of months ago for "stridor." also c/o headache x 10 days. Nursing Sepsis Screen: Possible Sepsis Risk Source of Information: Patient Exam Limitations: No Limitations History of Present Illness Time Seen by Provider: 18:40 Initial Comments This 70-year-old woman presents to the emergency room with complaints of cough and dyspnea for several days. She was seen at Dr. Reid's office on Saturday and felt to have stridor. She has a history of both COPD and laryngospasm. She was recently hospitalized for numerous days from April 13-. She was treated for urinary tract infection, COPD exacerbation, and psychogenic stridor. She has low-grade fever of 100.3. She reports having daily low-grade fevers on a chronic basis. She is presently taking Ativan 3 times daily for the psychogenic stridor. She uses albuterol nebulizer treatments at home every 6 hours. She has been having persistent cough throughout the week and complains of abdominal muscle tenderness secondary to cough. Allergies and Home Medications Allergies Coded Allergies: hydromorphone (Verified Allergy, Mild, STRONG RASH, 10/28/06) Penicillins (Verified Allergy, Unknown, 10/28/06) Sulfa (Sulfonamide Antibiotics) (Verified Allergy, Unknown, 10/28/06) aspirin (Verified Adverse Reaction, Mild, ASPIRIN SENSITIVE, 05/16/16) sumatriptan (Unverified Adverse Reaction, Mild, PALPITATIONS, 08/14/08) Home Medications Acetaminophen 325 Mg Tablet, 650 MG PO Q6H PRN for FEVER, (Reported) TAKES 2 (325MG) TABLETS Buspirone HCl 10 Mg Tablet, 10 MG PO TID, (Reported) Cefdinir 300 Mg Capsule, 300 MG PO BID, #14 Prescribed by: BRADY BROWN on 06/07/162035 Cetirizine HCl 10 Mg Tablet, 10 MG PO BID PRN for ALLERGIES, (Reported) Fluticasone/Salmeterol 12 Gm Hfa.aer.ad, 2 PUFF IH BID@, #1 Prescribed by: NANNETTE REID on 04/23/16 1447 Gabapentin 300 Mg Capsule, 300 MG PO BID, (Reported) Glimepiride 2 Mg Tablet, 2 MG PO BID, (Reported) Hydrocortisone/Pramoxine 30 Gm Cream.appl, 30 GM RC TID, #1 Prescribed by: GRANT CARSON on 05/16/16 1319 Ipratropium/Albuterol Sulfate 3 Ml Ampul.neb, 3 ML NEB Q4H PRN for SHORTNESS OF BREATH, (Reported) Ketorolac Tromethamine 10 Mg Tablet, 10 MG PO TID PRN for MIGRAINE, #20 Prescribed by: NANNETTE REID on 04/25/16 0847 Lorazepam 0.5 Mg Tablet, 0.5 MG PO TID, (Reported) Nitrofurantoin Monohyd/M-Cryst 100 Mg Capsule, 1 TAB PO BID, #14 Prescribed by: BRADY BROWN on 06/07/162035 Pantoprazole Sodium 40 Mg Tablet.dr, 40 MG PO DAILY, #90 Prescribed by: GRANT CARSON on 05/16/16 1319 Pramipexole Di-HCl 1 Mg Tablet, 1 MG PO 1800, (Reported) Prednisone 10 Mg Tab, 10 MG PO UD, #15 Take 3 tablets daily for 2 days, then 2 tablets daily for 3 days, then one tablet daily for 3 days Prescribed by: BRADY BROWN on 06/07/162035 Propranolol HCl 40 Mg Tablet, 40 MG PO BID, (Reported) Constitutional: see HPI EENTM: see HPI Respiratory: see HPI Cardiovascular: no symptoms reported Gastrointestinal: no symptoms reported Genitourinary: no symptoms reported Musculoskeletal: no symptoms reported Skin: no symptoms reported Psychiatric/Neurological: No Symptoms Reported Hematologic/Lymphatic: No Symptoms Reported Past Uhzozip-Lpzqoh-Ouchaf Hx Patient Social History Alcohol Use: Denies Use Recreational Drug Use: No Smoking Status: Never a Smoker Recent Foreign Travel: No Contact w/Someone Who Travel: No Recent Infectious Disease Expo: No Recent Hopitalizations: No Immunizations Up To Date Tetanus Booster (TDap): Unknown PED Vaccines UTD: No Date of Pneumonia Vaccine: May 24, 2012 Date of Influenza Vaccine: Jan 25, 2016 Seasonal Allergies Seasonal Allergies: Yes Surgeries HX Surgeries: Yes Surgeries: Abdominal, Appendectomy, Cardiac, Defibrillator, Gallbladder, Hysterectomy, Oophorectomy, Pacemaker, Tonsillectomy Respiratory Hx Respiratory Disorders: Yes (COPD, wears oxygen) Respiratory Disorders: Pneumonia, Chronic Bronchitis, Sleep Apnea, COPD (with chronic hypoxia, uses O2 at 2 L/m) Cardiovascular Hx Cardiac Disorders: Yes (HX CARDIAC ARREST DURING ENT SURGERY, PACER/ICD) Cardiac Disorders: Irregular Heartbeat Neurological Hx Neurological Disorders: Yes (PERIPHERAL NEUROPATHY) Neurological Disorders: Headaches /Migraines, Neuropathy 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 System Hx 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 Disorders: No Sexually Transmitted Disease: No Female 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 Disorders: 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 Genitourinary Hx Genitourinary Disorders: Yes (RIGHT INTRARENAL STONE) Genitourinary Disorders: Kidney Infection, Bladder Infection, Kidney Stones, UTI-Chronic Gastrointestinal Hx Gastrointestinal Disorders: Yes (c-diff in march 2015) Gastrointestinal Disorders: Gastroesophageal Reflux, Diverticulosis, Hemorrhoids, C-Diff, Hiatal Hernia, Ulcer, Gall Bladder Disease, Irritable Bowel Musculoskeletal Hx Musculoskeletal Disorders: Yes (RESTLESS LEG SYNDROME) Musculoskeletal Disorders: Degenerate Disk Disease, Arthritis, Fibromyalgia Endocrine Hx Endocrine Disorders: Yes Endocrine Disorders: Diabetes, Non-Insulin dep HEENT HX ENT Disorders: Yes HEENT Disorders: Cataract Loss of Vision: Denies Hearing Impairment: Denies Cancer Hx Cancer: No Psychosocial Hx Psychiatric Problems: Yes Behavioral Health Disorders: Anxiety, Depression Integumentary HX Skin/Integumentary Disorder: Yes Skin/Integumentary Disorders: Pruritis Blood Transfusions Hx Blood Disorders: No Adverse Reaction to a Blood Tr: No Family Medical History Significant Family History: No Pertinent Family Hx Family Medial History: Alzheimer's disease 19 FATHER Cardiovascular disease 19 FATHER 19 MOTHER Completed stroke 19 MOTHER Hypertension 19 FATHER 19 MOTHER Myocardial infarction 19 FATHER 19 MOTHER No Family History of: Diabetes mellitus Physical Exam Vital Signs Vital Sign - Last 12Hours 06/07/16 06/07/16 18:09 19:01 Temp 100.3 Pulse 74 Resp 28 B/P (MAP) 178/86 Pulse Ox 96 O2 Flow Rate 2.00 Capillary Refill : Less Than 3 Seconds General Appearance: WD/WN, Mild Distress, Obese HEENT: TMs Normal, Normal ENT Inspection, Pharynx Normal Neck: Normal Inspection, Supple Respiratory: Stridor, Wheezing, Other (Barking cough) Cardiovascular: Regular Rate, Rhythm, No Edema, No Murmur Gastrointestinal: Normal Bowel Sounds, Soft, Tenderness (mild epigastric) Extremity: Normal Inspection, Non Tender Neurologic/Psychiatric: Alert, Oriented x3, No Motor/Sensory Deficits, 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, negative assembler II-XII Norm as Tested Skin: Normal Color, Warm/Dry Focused Exam Lactic Acid Level Progress/Results/Core Measures Results/Orders Lab Results Laboratory Tests Test 06/07/16 18:54 06/07/16 19:00 Range/Units White Blood Count 10.1 4.3-11.0 10^3/uL Red Blood Count 4.48 4.35-5.85 10^6/uL Hemoglobin 13.6 11.5-16.0 G/DL Hematocrit 41 35-52 % Mean Corpuscular Volume 91 80-99 FL Mean Corpuscular Hemoglobin 30 25-34 PG Mean Corpuscular Hemoglobin Concent 34 32-36 G/DL Red Cell Distribution Width 13.5 10.0-14.5 % Platelet Count 307 130-400 10^3/uL Mean Platelet Volume 9.7 7.4-10.4 FL Neutrophils (%) (Auto) 65 42-75 % Lymphocytes (%) (Auto) 23 12-44 % Monocytes (%) (Auto) 6 0-12 % Eosinophils (%) (Auto) 6 0-10 % Basophils (%) (Auto) 1 0-10 % Neutrophils # (Auto) 6.6 1.8-7.8 X 10^3 Lymphocytes # (Auto) 2.3 1.0-4.0 X 10^3 Monocytes # (Auto) 0.6 0.0-1.0 X 10^3 Eosinophils # (Auto) 0.6 H 0.0-0.3 10^3/uL Basophils # (Auto) 0.1 0.0-0.1 10^3/uL Prothrombin Time 12.4 12.2-14.7 SEC INR Comment 1.0 0.8-1.4 Activated Partial Thromboplast Time 22 L 24-35 SEC Sodium Level 139 135-145 MMOL/L Potassium Level 4.3 3.6-5.0 MMOL/L Chloride Level 104 98-107 MMOL/L Carbon Dioxide Level 25 21-32 MMOL/L Anion Gap 10 5-14 MMOL/L Blood Urea Nitrogen 11 7-18 MG/DL Creatinine 0.83 0.60-1.30 MG/DL Estimat Glomerular Filtration Rate > 60 BUN/Creatinine Ratio 13 Glucose Level 226 H 70-105 MG/DL Lactic Acid Level 1.64 0.50-2.00 MMOL/L Calcium Level 9.1 8.5-10.1 MG/DL Total Bilirubin 0.4 0.1-1.0 MG/DL Aspartate Amino Transf (AST/SGOT) 30 5-34 U/L Alanine Aminotransferase (ALT/SGPT) 26 0-55 U/L Alkaline Phosphatase 106 40-136 U/L Total Protein 6.4 6.4-8.2 G/DL Albumin 3.6 3.2-4.5 G/DL Urine Color YELLOW Urine Clarity SLIGHTLY CLOUDY Urine pH 6 5-9 Urine Specific [place] 1.015 L 1.016-1.022 Urine Protein NEGATIVE NEGATIVE Urine Glucose (UA) 2+ H NEGATIVE Urine Ketones NEGATIVE NEGATIVE Urine Nitrite NEGATIVE NEGATIVE Urine Bilirubin NEGATIVE NEGATIVE Urine Urobilinogen NORMAL NORMAL MG/DL Urine Leukocyte Esterase 2+ H NEGATIVE Urine RBC (Auto) NEGATIVE NEGATIVE Urine RBC NONE /HPF Urine WBC 5-10 H /HPF Urine Squamous Epithelial Cells 10-25 H /HPF Urine Crystals NONE /LPF Urine Bacteria FEW H /HPF Urine Casts NONE /LPF Urine Mucus NEGATIVE /LPF Urine Culture Indicated YES Micro Results Microbiology 06/07/16 Influenza Types A,B Antigen (YOLIE) - Final, Complete My Orders Orders - BRADY HOFFMAN MD Cbc With Automated Diff (06/07/16 18:40) Comprehensive Metabolic Panel (06/07/16 18:40) Lactic Acid Analyzer (06/07/16 18:40) Blood Culture (06/07/16 18:40) Protime With Inr (06/07/16 18:40) Partial Thromboplastin Time (06/07/16 18:40) O2 (06/07/16 18:40) Saline Lock/Iv-Start (06/07/16 18:40) Saline Lock/Iv-Start (06/07/16 18:40) Vital Signs Adult Sepsis Patie Q1HR (06/07/16 18:40) Remove Rings In Anticipation O (06/07/16 18:40) Influenza A And B Antigens (06/07/16 18:40) Chest Pa/Lat (2 View) (06/07/16 18:40) Albuterol/Ipra Inhalation Soln (Duoneb I (06/07/16 18:45) Svn Sm Volume Nebulizer Rt-Rfs (06/07/16 18:40) Ua Culture If Indicated (06/07/16 19:41) Urine Culture (06/07/16 19:00) Ciprofloxacin Tablet (Cipro Tablet) (06/07/16 20:30) Methylprednisolone Sod Succ (Solu-Medrol (06/07/16 20:30) Nitrofurantoin Capsule,Macro (Macrobid C (06/07/16 20:30) Cefdinir Capsule (Omnicef Capsule) (06/07/16 20:30) Ondansetron Injection (Zofran Injectio (06/07/16 20:45) Albuterol/Ipra Inhalation Soln (Duoneb I (06/07/16 20:45) Svn Sm Volume Nebulizer Rt-Rfs (06/07/16 20:39) Dexamethasone Injection (Decadron Inject (06/07/16 21:00) Dexamethasone Injection (Decadron Inject (06/07/16 20:57) Medications Given in ED Current Medications Medications Dose Ordered Sig/Alannah Route Start Time Stop Time Status Last Admin Dose Admin Albuterol/ Ipratropium 3 ml ONCE ONCE INH 06/07/16 20:45 06/07/16 20:46 DC 06/07/16 20:50 3 ML Cefdinir 300 mg ONCE ONCE PO 06/07/16 20:30 06/07/16 20:31 DC 06/07/16 20:49 300 MG Dexamethasone Sodium Phosphate 8 mg ONCE ONCE IH 06/07/16 21:00 06/07/16 21:01 DC 06/07/16 21:03 8 MG Methylprednisolone Sodium Succinate 62.5 mg ONCE ONCE IVP 06/07/16 20:30 06/07/16 20:31 DC 06/07/16 20:46 62.5 MG Nitrofurantoin Macrocrystals 100 mg ONCE ONCE PO 06/07/16 20:30 06/07/16 20:31 DC 06/07/16 20:49 100 MG Ondansetron HCl 8 mg ONCE ONCE IVP 06/07/16 20:45 06/07/16 20:46 DC 06/07/16 20:46 8 MG Vital Signs/I&O Vital Sign - Last 12Hours 06/07/16 06/07/16 06/07/16 06/07/16 19:01 20:49 21:02 22:35 Temp 99.0 Pulse 72 Resp 16 Pulse Ox 96 97 98 95 O2 Flow Rate 2.00 2.00 2.00 2.00 Blood Pressure Mean: 116 Progress Note #1: Time: 20:30 Progress Note Patient improved with a DuoNeb treatment. Laryngospasm remained intermittently. She reports this is a persistent intermittent problems since her admission in April but worse tonight. Patient did have fever but did not meet sepsis criteria. Mild urinary tract infection was detected by UA. Prior cultures were reviewed. Based on cultures patient was treated with Omnicef and Macrobid. Solu-Medrol 62.5 mg IV was administered prior to dismissal. Case was discussed with Dr. Reid who agrees with plan of care. Patient was to be dismissed home. Progress Note #2: Time: 20:58 Progress Note Patient was being prepared for discharge but respiratory status worsened again. She has increasing stridor and a bronchitis sounding cough. Solu-Medrol had been administered. Inhaled dexamethasone will now be attempted. If that is not successful in calming down her respiratory status, then racemic epinephrine will be used. Patient states her stridor has not been this bad since being dismissed from the hospital. Patient took a dose of her own Ativan and Requip. Progress Note #3: Time: 22:24 Progress Note Breathing and stridor have calmed significantly since receiving an inhaled Decadron treatment. Patient does feel comfortable returning home at this time. Diagnostic Imaging Diagonstic Imaging: Xray Plain Films/CT/US/NM/MRI: chest Comments NAME: BRAYDON ARBOLEDA MED REC#: [id number] PT STATUS: REG ER : 1945 PHYSICIAN: BRADY HOFFMAN MD ADMIT DATE: 06/07/16/ER Draft Date of Exam:06/07/16 CHEST PA/LAT (2 VIEW) INDICATION: Cough and shortness of breath and wheezing. TECHNIQUE: PA and lateral chest obtained at 7:29 p.m. and compared to 04/20/2016. FINDINGS: Heart is normal in size. Aorta is tortuous. Pacemaker device is unchanged. There is no acute infiltrate or edema or pleural fluid. IMPRESSION: Tortuous aorta. Pacemaker device is unchanged. No acute infiltrate or pleural fluid. Dictated on workstation # [id number] Dict: 06/07/161917 Trans: 06/07/16 1921 AS6 [id number] Interpreted by: SHEREEN KELLEY MD Departure Impression Impression: Primary Impression: COPD exacerbation Additional Impressions: Laryngospasm Urinary tract infection Qualified Codes: N39.0 - Urinary tract infection, site not specified Fever Qualified Codes: R50.9 - Fever, unspecified Bronchitis Disposition: 01 HOME, SELF-CARE Condition: Improved Departure-Patient Inst. Decision time for Depature: 20:25 Referrals: NANNETTE REID DO (PCP/Family) Primary Care Physician Patient Instructions: Chronic Obstructive Pulmonary Disease (COPD), Including Emphysema, Urinary Tract Infection, Adult (DC) Add. Discharge Instructions: Drink plenty of clear liquids. Follow-up with your primary care provider soon as possible, tomorrow if you're able. Complete your antibiotics as prescribed. Complete your steroids as prescribed. Return to the emergency room if symptoms worsen. Monitor your blood sugars closely while you are on steroids. All discharge instructions reviewed with patient and/or family. Voiced understanding. Scripts Prednisone (Prednisone) 10 Mg Tab 10 MG PO UD, #15 TAB Take 3 tablets daily for 2 days, then 2 tablets daily for 3 days, then one tablet daily for 3 days Prov: BRADY HOFFMAN MD 06/07/16 Nitrofurantoin Monohyd/M-Cryst (Macrobid 100 mg Capsule) 100 Mg Capsule 1 TAB PO BID, #14 CAP Prov: BRADY HOFFMAN MD 06/07/16 Cefdinir (Cefdinir) 300 Mg Capsule 300 MG PO BID, #14 CAP Prov: BRADY HOFFMAN MD 06/07/16 Copy Copies To 1: NANNETTE REID JOSHUA T MD Jun 07, 2016 19:29
[2016-06-07 19:59] LABS: BILIRUBIN,URINE NEGATIVE (NEGATIVE); KETONES,URINE NEGATIVE (NEGATIVE); LEUKOCYTE ESTERASE ,URINE 2+ (NEGATIVE); NITRITE,URINE NEGATIVE (NEGATIVE); PH,URINE 6 (5-9); PROTEIN,URINE NEGATIVE (NEGATIVE); UROBILINOGEN,URINE NORMAL (NORMAL)
[2016-06-07] MEDS ORDERED: NITROFURANTOIN 100 MG (MACROBID) CAPSULE PO ONE (20:30)
[2016-06-07] MEDS ORDERED: CEFDINIR 300 MG (OMNICEF) CAP PO ONE (20:30)
[2016-06-07] MEDS ORDERED: methylPREDNISolone 125 MG (Solu-MEDROL) VIAL IVP ONE (20:30)
[2016-06-07] MEDS ORDERED: CIPROFLOXACIN 500 MG (CIPRO) TABLET PO ONE (20:30)
[2016-06-07] MEDS ORDERED: CEFD300C3 PO (20:36)
[2016-06-07] MEDS ORDERED: PRD10T PO (20:36)
[2016-06-07] MEDS ORDERED: NITR-65 PO (20:36)
[2016-06-07] MEDS ORDERED: ONDANSETRON 4 MG/2 ML (SDV) Z0FRAN IVP ONE (20:45)
[2016-06-07] MEDS ORDERED: DEXAMETHASONE 4 MG/ML SDV (DECADRON) ONE (20:57)
[2016-06-07] MEDS ORDERED: DEXAMETHASONE 4 MG/ML SDV (DECADRON) IH ONE (21:00)
[2016-06-07 22:35] VITALS: BP 123/78
[2016-06-08] MEDS ORDERED: PANT40TA3 PO (13:57)
[2016-06-08] MEDS ORDERED: PHEN26CR RC (13:57)
[2016-06-08] MEDS ORDERED: FLUT12AE4 IH (13:57)
[2016-06-08] MEDS ORDERED: BUSP5TAB59 PO (13:57)
[2016-06-08] MEDS ORDERED: ROPI2TAB3 PO (20:53)
== END 2016-06-07 22:35 | disposition home or self-care (01) ==
LOC: EDUNIT# 17:37 → ER 17:39
DX: J44.0 Chronic obstructive pulmonary disease with (acute) lower respiratory infection (principal); J38.5 Laryngeal spasm; N39.0 Urinary tract infection, site not specified; E11.9 Type 2 diabetes mellitus without complications; Z95.810 Presence of automatic (implantable) cardiac defibrillator
CPT/HCPCS: 36415; 71020; 80053; 81000; 83605; 85025; 85610; 85730; 87040; 87088; 87804; 94640; 96374; 96375; 99282

== ENCOUNTER 2016-06-08 06:52 | Inpatient (IN) | payer MEDICARE ==
[~2016-06-08] VITALS: Ht 162.6 cm; Wt 98.0 kg
[~2016-06-08 06:52] MED LIST changes: +PRD10T PO
[2016-06-08] MEDS ORDERED: RT-ALBUTEROL/IPRATROPIUM 3 ML (DUONEB) VIAL INH ONE (08:15)
[2016-06-08] MEDS ORDERED: DEXAMETHASONE 4 MG/ML SDV (DECADRON) IH ONE (08:15)
--- NOTE | 2016-06-08 08:20 | ED Respiratory ---
General Chief Complaint: Cough/Cold/Flu Symptoms Stated Complaint: COUGH,MIGRAINE Nursing Triage Note: PT WAS SEEN HERE IN THE ER LAST NIGHT FOR THE SAME, CC OF COUGH THAT CAUSES HER TO CHOKE, SOB AT REST DUE TO COUGHING. Source: patient Exam Limitations: no limitations History of Present Illness Time seen by provider: 08:12 Initial Comments The patient's a 70-year-old white female with sunglasses on. She was here for a prolonged visit last night. The complaint was the same which is to say cough and stridorous respirations. She had an admission in March for purported pneumonia with similar complaints. She had a prolonged admission in April for stridorous respirations. That did not respond to antibiotics, steroids, or beta agonists. It in fact appeared to respond more to IV benzodiazepines. She reports that about midnight she began to have recurrent symptoms and by 3 a.m. she was miserable. She has not had any previous bronchoscopy. She reports that she has to see a contact lens cutter she thinks she would prefer [facility] Severity: moderate Prior Episodes/Possible Cause: frequent episodes Associated Symptoms: headache Allergies and Home Medications Allergies Coded Allergies: hydromorphone (Verified Allergy, Mild, STRONG RASH, 10/28/06) Penicillins (Verified Allergy, Unknown, 10/28/06) Sulfa (Sulfonamide Antibiotics) (Verified Allergy, Unknown, 10/28/06) aspirin (Verified Adverse Reaction, Mild, ASPIRIN SENSITIVE, 05/16/16) sumatriptan (Unverified Adverse Reaction, Mild, PALPITATIONS, 08/14/08) Home Medications Acetaminophen 325 Mg Tablet, 650 MG PO Q6H PRN for FEVER, (Reported) TAKES 2 (325MG) TABLETS Buspirone HCl 10 Mg Tablet, 10 MG PO TID, (Reported) Cefdinir 300 Mg Capsule, 300 MG PO BID, #14 Prescribed by: BRADY BROWN on 06/07/162035 Cetirizine HCl 10 Mg Tablet, 10 MG PO BID PRN for ALLERGIES, (Reported) Fluticasone/Salmeterol 12 Gm Hfa.aer.ad, 2 PUFF IH BID@, #1 Prescribed by: NANNETTE REID on 04/23/16 1447 Gabapentin 300 Mg Capsule, 300 MG PO BID, (Reported) Glimepiride 2 Mg Tablet, 2 MG PO BID, (Reported) Hydrocortisone/Pramoxine 30 Gm Cream.appl, 30 GM RC TID, #1 Prescribed by: GRANT CARSON on 05/16/16 1319 Ipratropium/Albuterol Sulfate 3 Ml Ampul.neb, 3 ML NEB Q4H PRN for SHORTNESS OF BREATH, (Reported) Ketorolac Tromethamine 10 Mg Tablet, 10 MG PO TID PRN for MIGRAINE, #20 Prescribed by: NANNETTE REID on 04/25/16 0847 Lorazepam 0.5 Mg Tablet, 0.5 MG PO TID, (Reported) Nitrofurantoin Monohyd/M-Cryst 100 Mg Capsule, 1 TAB PO BID, #14 Prescribed by: BRADY BROWN on 06/07/162035 Pantoprazole Sodium 40 Mg Tablet.dr, 40 MG PO DAILY, #90 Prescribed by: GRANT CARSON on 05/16/16 1319 Pramipexole Di-HCl 1 Mg Tablet, 1 MG PO 1800, (Reported) Prednisone 10 Mg Tab, 10 MG PO UD, #15 Take 3 tablets daily for 2 days, then 2 tablets daily for 3 days, then one tablet daily for 3 days Prescribed by: BRADY BROWN on 06/07/162035 Propranolol HCl 40 Mg Tablet, 40 MG PO BID, (Reported) Constitutional: see HPI EENTM: no symptoms reported Respiratory: see HPI, cough, dyspnea on exertion, short of breath, stridor, wheezing Cardiovascular: no symptoms reported Gastrointestinal: no symptoms reported Genitourinary: no symptoms reported Musculoskeletal: no symptoms reported Skin: no symptoms reported Psychiatric/Neurological: No Symptoms Reported Hematologic/Lymphatic: No Symptoms Reported Immunological/Allergic: no symptoms reported Past Fjoxwwx-Cnyecj-Pqynhb Hx Patient Social History Alcohol Use: Denies Use Recreational Drug Use: No Smoking Status: Never a Smoker 2nd Hand Smoke Exposure: Yes (HX OF) Recent Foreign Travel: No Contact w/Someone Who Travel: No Recent Infectious Disease Expo: No Recent Hopitalizations: Yes (APR 2016) Immunizations Up To Date Tetanus Booster (TDap): Unknown PED Vaccines UTD: No Date of Pneumonia Vaccine: May 24, 2012 Date of Influenza Vaccine: Jan 25, 2016 Seasonal Allergies Seasonal Allergies: Yes Surgeries HX Surgeries: Yes Surgeries: Abdominal, Appendectomy, Cardiac, Defibrillator, Gallbladder, Hysterectomy, Oophorectomy, Pacemaker, Tonsillectomy Respiratory Hx Respiratory Disorders: Yes (COPD, wears oxygen) Respiratory Disorders: Pneumonia, Chronic Bronchitis, Sleep Apnea, COPD Cardiovascular Hx Cardiac Disorders: Yes (HX CARDIAC ARREST DURING ENT SURGERY, PACER/ICD) Cardiac Disorders: Irregular Heartbeat Neurological Hx Neurological Disorders: Yes (PERIPHERAL NEUROPATHY) Neurological Disorders: Headaches /Migraines, Neuropathy 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 System Hx 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 Disorders: No Sexually Transmitted Disease: No Female 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 Genitourinary Hx Genitourinary Disorders: Yes (RIGHT INTRARENAL STONE) Genitourinary Disorders: Kidney Infection, Bladder Infection, Kidney Stones, UTI-Chronic Gastrointestinal Hx Gastrointestinal Disorders: Yes (c-diff in march 2015) Gastrointestinal Disorders: Gastroesophageal Reflux, Diverticulosis, Hemorrhoids, C-Diff, Hiatal Hernia, Ulcer, Gall Bladder Disease, Irritable Bowel Musculoskeletal Hx Musculoskeletal Disorders: Yes (RESTLESS LEG SYNDROME) Musculoskeletal Disorders: Degenerate Disk Disease, Arthritis, Fibromyalgia Endocrine Hx Endocrine Disorders: Yes Endocrine Disorders: Diabetes, Non-Insulin dep HEENT HX ENT Disorders: Yes HEENT Disorders: Cataract Loss of Vision: Denies Hearing Impairment: Denies Cancer Hx Cancer: No Psychosocial Hx Psychiatric Problems: Yes Behavioral Health Disorders: Anxiety, Depression Integumentary HX Skin/Integumentary Disorder: Yes Skin/Integumentary Disorders: Pruritis Blood Transfusions Hx Blood Disorders: No Adverse Reaction to a Blood Tr: No Family Medical History Significant Family History: No Pertinent Family Hx Family Medial History: Alzheimer's disease 19 FATHER Cardiovascular disease 19 FATHER 19 MOTHER Completed stroke 19 MOTHER Hypertension 19 FATHER 19 MOTHER Myocardial infarction 19 FATHER 19 MOTHER No Family History of: Diabetes mellitus Physical Exam Vital Signs Vital Sign - Last 12Hours 06/08/16 07:08 Temp 97.2 Pulse 85 Resp 22 B/P (MAP) 140/99 Pulse Ox 93 O2 Delivery Room Air Capillary Refill : Less Than 3 Seconds General Appearance: moderate distress Eyes: Bilateral Eye Normal Inspection HEENT: normal ENT inspection Neck: full range of motion Respiratory: other (stridorous inspiration and expiration which does not respond to purse lip breathing) Cardiovascular: normal peripheral pulses, regular rate, rhythm, no edema, no gallop, no JVD, no murmur Gastrointestinal: normal bowel sounds, non tender, soft, no organomegaly, no pulsatile mass Extremities: normal range of motion, non-tender, normal inspection, no pedal edema, no calf tenderness, normal capillary refill, pelvis stable 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, no motor/sensory deficits, alert, normal mood/affect, oriented x 3 Skin: normal color, warm/dry Lymphatic: no adenopathy Progress/Results/Core Measures Results/Orders My Orders Orders - ROMI KAUR MD Albuterol/Ipra Inhalation Soln (Duoneb I (06/08/16 08:15) Dexamethasone Injection (Decadron Inject (06/08/16 08:15) Svn Sm Volume Nebulizer Rt-Rfs (06/08/16 08:10) Svn Sm Volume Nebulizer Rt-Rfs (06/08/16 08:10) Medications Given in ED Current Medications Medications Dose Ordered Sig/Alannah Route Start Time Stop Time Status Last Admin Dose Admin Albuterol/ Ipratropium 3 ml ONCE ONCE INH 06/08/16 08:15 06/08/16 08:16 DC 06/08/16 08:40 3 ML Dexamethasone Sodium Phosphate 4 mg ONCE ONCE IH 06/08/16 08:15 06/08/16 08:16 DC 06/08/16 08:40 4 MG Vital Signs/I&O Vital Sign - Last 12Hours 06/08/16 06/08/16 07:08 08:40 Temp 97.2 Pulse 85 Resp 22 B/P (MAP) 140/99 Pulse Ox 93 96 O2 Delivery Room Air Blood Pressure Mean: 113 Departure Communication Progress Notes 0945 reexam shows no improvement in her status. Again discussed with Dr. Reid the patient will be admitted observation. Impression Impression: Primary Impression: Stridor Disposition: ADMITTED INPATIENT Condition: Stable/Unchanged Decision to Admit Reason: Admit from ER (General) Decision to Admit/Date: Jun 08, 2016 Time/Decision to Admit Time: 09:46 Departure-Patient Inst. Referrals: NANNETTE REID DO (PCP/Family) Primary Care Physician ROMI KAUR MD Jun 08, 2016 08:20
[2016-06-08 11:30] VITALS: BP 135/76
[2016-06-08] MEDS ORDERED: CATHETER FLUSH 10 ML SYR IV PRN (11:30)
[2016-06-08] MEDS: NS IV 1000 ML 1,000 ML IV SCH (11:40)
[2016-06-08] MEDS: LORazepam INJ 2 MG/ML (ATIVAN) VIAL IV SCH ×2 (11:40→17:15)
[2016-06-08] MEDS ORDERED: KETOROLAC 30 MG/ML VIAL IVP ONE (12:15)
[2016-06-08] MEDS ORDERED: PROMETHAZINE INJ 25 MG/ML (PHENERGAN) AMP IVP ONE (12:15)
[2016-06-08] MEDS ORDERED: KETOROLAC 30 MG/ML VIAL IVP PRN (12:15)
[2016-06-08] MEDS ORDERED: PROMETHAZINE INJ 25 MG/ML (PHENERGAN) AMP IVP PRN (12:15)
[2016-06-08] MEDS ORDERED: PANTOPRAZOLE 40 MG/10 ML (PROTONIX) VIAL IV ONE (12:15)
--- NOTE | 2016-06-08 12:17 | History & Physicial ---
History of Present Illness History of Present Illness Reason for visit/HPI This is a 70 year old female with a history of COPD and recent admission for stridor who presented to the emergency room for a 2nd time within 12hours of leaving the emergency room with cough and stridor. As per her last admission, her stridor did not respond to any medical modalities for stridor including an hour long nebulizer treatment, IV steroids, inhaled decadron, inhaled epinephrine, inhaled lidocaine, cool mist, etc. 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 The patient has seen pulmonology as well as ENT in the past for this and had diagnosis of COPD but no etiology found for her stridor. Once again she is noted to have no stridor with conversation--talking on the phone when I came in the room with no stridor and no stridor when talking with me but immediately has stridor when stops talking. She also has a history of recurrent UTIs and her urine culture is currently pending. She will be admitted for observation and started on IV ativan. Will also cover her with IV protonix as she does complain of choking as a contributing factor. Will hold on antibiotics for UTI until get culture results. Date of Admission Jun 08, 2016 at 09:51 I consulted on this patient on 06/08/16 12:12 Attending Physician Belia Reid DO Admitting Physician Belia Reid DO Consult Allergies and Home Medications Allergies Coded Allergies: hydromorphone (Verified Allergy, Mild, STRONG RASH, 10/28/06) Penicillins (Verified Allergy, Unknown, 10/28/06) Sulfa (Sulfonamide Antibiotics) (Verified Allergy, Unknown, 10/28/06) aspirin (Verified Adverse Reaction, Mild, ASPIRIN SENSITIVE, 05/16/16) sumatriptan (Unverified Adverse Reaction, Mild, PALPITATIONS, 08/14/08) Home Medications Acetaminophen 325 Mg Tablet, 650 MG PO Q6H PRN for FEVER, (Reported) TAKES 2 (325MG) TABLETS Buspirone HCl 10 Mg Tablet, 10 MG PO TID, (Reported) Cefdinir 300 Mg Capsule, 300 MG PO BID, #14 Prescribed by: BRADY BROWN on 06/07/162035 Cetirizine HCl 10 Mg Tablet, 10 MG PO BID PRN for ALLERGIES, (Reported) Fluticasone/Salmeterol 12 Gm Hfa.aer.ad, 2 PUFF IH BID@, #1 Prescribed by: BELIA REID on 04/23/16 1447 Gabapentin 300 Mg Capsule, 300 MG PO BID, (Reported) Glimepiride 2 Mg Tablet, 2 MG PO BID, (Reported) Hydrocortisone/Pramoxine 30 Gm Cream.appl, 30 GM RC TID, #1 Prescribed by: GRANT CARSON on 05/16/16 1319 Ipratropium/Albuterol Sulfate 3 Ml Ampul.neb, 3 ML NEB Q4H PRN for SHORTNESS OF BREATH, (Reported) Ketorolac Tromethamine 10 Mg Tablet, 10 MG PO TID PRN for MIGRAINE, #20 Prescribed by: BELIA REID on 04/25/16 0847 Lorazepam 0.5 Mg Tablet, 0.5 MG PO TID, (Reported) Nitrofurantoin Monohyd/M-Cryst 100 Mg Capsule, 1 TAB PO BID, #14 Prescribed by: BRADY BROWN on 06/07/162035 Pantoprazole Sodium 40 Mg Tablet.dr, 40 MG PO DAILY, #90 Prescribed by: GRANT CARSON on 05/16/16 1319 Pramipexole Di-HCl 1 Mg Tablet, 1 MG PO 1800, (Reported) Prednisone 10 Mg Tab, 10 MG PO UD, #15 Take 3 tablets daily for 2 days, then 2 tablets daily for 3 days, then one tablet daily for 3 days Prescribed by: BRADY BROWN on 06/07/162035 Propranolol HCl 40 Mg Tablet, 40 MG PO BID, (Reported) Past Byirupc-Jbkyae-Ylhrti Hx Patient Social History Alcohol Use: Denies Use Recreational Drug Use: No Smoking Status: Never a Smoker 2nd Hand Smoke Exposure: Yes (HX OF) Recent Foreign Travel: No Contact w/other who traveled: No Recent Hopitalizations: Yes (APR 2016) Recent Infectious Disease Expo: No Immunizations Up To Date Tetanus Booster (TDap): Unknown Date of Pneumonia Vaccine: May 24, 2012 Date of Influenza Vaccine: Jan 25, 2016 Seasonal Allergies Seasonal Allergies: Yes Surgeries HX Surgeries: Yes Surgeries: Abdominal, Appendectomy, Cardiac, Defibrillator, Gallbladder, Hysterectomy, Oophorectomy, Pacemaker, Tonsillectomy Respiratory Hx Respiratory Disorders: Yes (COPD, wears oxygen) Cardiovascular Hx Cardiovascular Disorders: Yes (HX CARDIAC ARREST DURING ENT SURGERY, PACER/ ICD) Cardiac Disorders: Irregular Heartbeat Neurological Hx Neurological Disorders: Yes (PERIPHERAL NEUROPATHY) Neurological Disorders: Headaches /Migraines, Neuropathy 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 System Hx 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 Disorders: No Sexually Transmitted Disease: No Female 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 Disorders: Denies Genitourinary Hx Genitourinary Disorders: Yes (RIGHT INTRARENAL STONE) Genitourinary Disorders: Kidney Infection, Bladder Infection, Kidney Stones, UTI-Chronic Gastrointestinal Hx Gastrointestinal Disorders: Yes (c-diff in march 2015) Gastrointestinal Disorders: Gastroesophageal Reflux, Diverticulosis, Hemorrhoids, C-Diff, Hiatal Hernia, Ulcer, Gall Bladder Disease, Irritable Bowel Musculoskeletal Hx Musculoskeletal Disorders: Yes (RESTLESS LEG SYNDROME) Musculoskeletal Disorders: Degenerate Disk Disease, Arthritis, Fibromyalgia Endocrine Hx Endocrine Disorders: Yes Endocrine Disorders: Diabetes, Non-Insulin dep HEENT HX ENT Disorders: Yes HEENT Disorders: Cataract Loss of Vision: Denies Hearing Impairment: Denies Cancer Hx Cancer: No Psychosocial Hx Psychiatric Problems: Yes Behavioral Health Disorders: Anxiety, Depression Integumentary HX Skin/Integumentary Disorder: Yes Skin/Integumentary Disorders: Pruritis Blood Transfusions Hx Blood Disorders: No Adverse Reaction to a Blood Tr: No Family Medical History Significant Family History: No Pertinent Family Hx Family Hx: Alzheimer's disease 19 FATHER Cardiovascular disease 19 FATHER 19 MOTHER Completed stroke 19 MOTHER Hypertension 19 FATHER 19 MOTHER Myocardial infarction 19 FATHER 19 MOTHER No Family History of: Diabetes mellitus Constitutional: weakness EENTM: hoarseness, throat swelling Respiratory: cough, stridor Cardiovascular: No no symptoms reported, No see HPI, No chest pain, No edema, No Hx of Intervention, No palpitations, No syncope, No vascular heart diseas, No other Gastrointestinal: dysphagia (choking) Genitourinary: frequency Musculoskeletal: back pain Skin: No no symptoms reported, No see HPI, No change in color, No change in hair/nails, No dryness, No hx of skin cancer, No lesions, No lumps, No pruritus , No rash, No other Psychiatric/Neurological: Emotional Problems, Headache Physical Exam Vital Signs Vital Sign - Last 12Hours 06/08/16 07:08 Temp 97.2 Pulse 85 Resp 22 B/P (MAP) 140/99 Pulse Ox 93 O2 Delivery Room Air Capillary Refill : Less Than 3 Seconds General Appearance: Mild Distress HEENT: Normal ENT Inspection, Pharyngeal Erythema Neck: Non Tender, Supple Respiratory: Stridor Cardiovascular: Regular Rate, Rhythm, Systolic Murmur Gastrointestinal: Normal Bowel Sounds, Non Tender, Soft Rectal: Deferred Back: No CVA Tenderness Extremity: Non Tender, No Calf Tenderness, No Pedal Edema Neurologic/Psychiatric: Alert, Oriented x3 Skin: Normal Color, Warm/Dry Assessment/Plan Assessment and Plan 1. Stridor--appears to be psychogenic--will treat with IV ativan as per last visit, Dr. Medrano will see her next week in his office to repeat a laryngoscope 2. Dysphagia/Choking--will check modified barium swallow and start IV protonix 3. Migraine--toradol and phenergan IV now x1 and prn 4. COPD--stable 5. Recurrent UTIs--await urine culture Problems: BELIA REID DO Jun 08, 2016 12:17
[2016-06-08] MEDS ORDERED: PATIENT MAY USE OWN MEDS, ALL MC SCH (12:30)
[2016-06-08] MEDS ORDERED: RT-ALBUTEROL/IPRATROPIUM 3 ML (DUONEB) VIAL INH PRN ×2 (13:45)
[2016-06-08] MEDS ORDERED: PHEN26CR RC (13:57)
[2016-06-08] MEDS ORDERED: PANT40TA3 PO (13:57)
[2016-06-08] MEDS ORDERED: FLUT12AE4 IH (13:57)
[2016-06-08] MEDS ORDERED: BUSP5TAB59 PO (13:57)
[2016-06-08] MEDS ORDERED: ACETAMINOPHEN 325 MG TABLET/CAPLET (TYLENOL) PO PRN (14:15)
[2016-06-08 15:55] VITALS: BP 125/73
[2016-06-08] MEDS: inSUlin (REGULAR) HUMAN 1 UNIT/0.01 ML (CHARGE PER UNIT) SC SCH ×2 (16:50→21:32)
[2016-06-08] MEDS: RT-ADVAIR HFA 115/21 MCG PER PUFF IH SCH (19:22)
[2016-06-08] MEDS: RT-ALBUTEROL/IPRATROPIUM 3 ML (DUONEB) VIAL INH SCH (19:22)
[2016-06-08 19:40] VITALS: BP 133/70
[2016-06-08] MEDS: PROPRANOLOL 20 MG (INDERAL) TABLET PO SCH (20:31)
[2016-06-08] MEDS: GABAPENTIN 300 MG (NEURONTIN) CAP PO SCH (20:31)
[2016-06-08] MEDS: PRAMIPEXOLE 0.5 MG TAB (MIRAPEX) PO SCH (20:31)
[2016-06-08] MEDS: PANTOPRAZOLE 40 MG/10 ML (PROTONIX) VIAL IV SCH (20:31)
[2016-06-08] MEDS ORDERED: ROPI2TAB3 PO (20:53)
[2016-06-08] MEDS: busPIRone 5 MG (BUSPAR) TAB PO SCH (21:32)
[2016-06-08] MEDS: rOPINIRole 1 MG (REQUIP) TABLET PO SCH (21:32)
[2016-06-09] MEDS: LORazepam INJ 2 MG/ML (ATIVAN) VIAL IV SCH ×5 (00:17→23:49)
[2016-06-09 00:20] VITALS: BP 115/72
[2016-06-09 04:00] VITALS: BP 126/70
[2016-06-09] MEDS: NS IV 1000 ML 1,000 ML IV SCH ×2 (04:56→23:49)
[2016-06-09] MEDS: inSUlin (REGULAR) HUMAN 1 UNIT/0.01 ML (CHARGE PER UNIT) SC SCH ×4 (06:26→20:49)
[2016-06-09] MEDS: RT-ALBUTEROL/IPRATROPIUM 3 ML (DUONEB) VIAL INH SCH ×3 (07:05→19:10)
[2016-06-09] MEDS: RT-ADVAIR HFA 115/21 MCG PER PUFF IH SCH ×2 (07:05→19:10)
[2016-06-09 08:19] VITALS: BP 115/53
--- NOTE | 2016-06-09 08:20 | Progress Note (SOAP) ---
Subjective Subjective 70 yo female readmitted with psychogenic stridor- after being titrated down on her ativan- pt also notes she is in process of moving and that seems to exacerbate her respiratory issues due to dust, mold, etc. no overnight events- pt reports she is not any better. Will see what the ativan does with a few more doses. Review of Systems General: No Chills, No Night Sweats HEENT: Head Aches Pulmonary: Dyspnea, Cough, Other (stridor, sensation of her throat being full) Cardiovascular: No: Chest Pain Gastrointestinal: No: Abdominal Pain, Nausea, Vomiting Genitourinary: Dysuria, Frequency Musculoskeletal: No: neck pain, shoulder pain Neurological: Weakness Objective Exam Vital Signs Vital Sign - Last 12Hours 06/08/16 06/08/16 07:08 19:26 Temp 97.2 Pulse 85 Resp 22 B/P (MAP) 140/99 Pulse Ox 93 O2 Delivery Room Air O2 Flow Rate 2.00 Capillary Refill : Less Than 3 Seconds General Appearance: No Apparent Distress, WD/WN, Mild Distress Eyes: Bilateral Eye Normal Inspection HEENT: Normal ENT Inspection Neck: Non Tender, Supple Respiratory: Chest Non Tender, Rhonci (coarse breath sounds), Stridor Cardiovascular: Regular Rate, Rhythm, Systolic Murmur Gastrointestinal: Normal Bowel Sounds, Non Tender, Soft Rectal: Deferred Back: No CVA Tenderness Extremity: Non Tender, No Calf Tenderness, No Pedal Edema Neurologic/Psychiatric: Alert, Oriented x3 Skin: Normal Color, Warm/Dry Results Lab Laboratory Tests 06/08/16 15:52: Glucometer 372H 06/08/16 21:03: Glucometer 388H 06/09/16 06:18: Glucometer 229H Assessment/Plan Assessment/Plan Assessment/Plan 70 yo F admitted under observation Stridor--etiology likely psychogenic-- IV ativan - Dr. Medrano will see her next week in his office to repeat a laryngoscope Dysphagia/Choking-- modified barium swallow study ordered for 06/11/16 continue IV protonix Migraine--toradol and phenergan IV prn COPD--stable, on oxygen NC HTN- continue home meds Recurrent UTIs--urine culture + lactobacillus Diabetes mellitus with hyperglycemia- SSI B Dispo: No respiratory distress. Stridor noted when pt is not actively doing anything- she is unable to keep doing it with talking Problems: Clinical Quality Measures DVT/VTE Risk/Contraindication: Risk Factor Score Per Nursin RFS Level Per Nursing on Admit: 4+=Very High KARLEE WATERMAN MD Jun 09, 2016 8:20 am
[2016-06-09] MEDS: busPIRone 5 MG (BUSPAR) TAB PO SCH ×3 (09:12→20:45)
[2016-06-09] MEDS: PANTOPRAZOLE 40 MG/10 ML (PROTONIX) VIAL IV SCH ×2 (09:12→20:44)
[2016-06-09] MEDS: PROPRANOLOL 20 MG (INDERAL) TABLET PO SCH ×2 (09:12→20:45)
[2016-06-09] MEDS: GABAPENTIN 300 MG (NEURONTIN) CAP PO SCH ×2 (09:12→20:45)
[2016-06-09 12:00] VITALS: BP 132/60
[2016-06-09 16:20] VITALS: BP 160/94
[2016-06-09 20:00] VITALS: BP 146/88
[2016-06-09] MEDS: PRAMIPEXOLE 0.5 MG TAB (MIRAPEX) PO SCH (20:45)
[2016-06-09] MEDS: rOPINIRole 1 MG (REQUIP) TABLET PO SCH (20:45)
[2016-06-10] VITALS: BP 160/93
[2016-06-10] MEDS: LORazepam INJ 2 MG/ML (ATIVAN) VIAL IV SCH ×4 (06:00→23:51)
[2016-06-10] MEDS: inSUlin (REGULAR) HUMAN 1 UNIT/0.01 ML (CHARGE PER UNIT) SC SCH ×4 (06:00→21:12)
[2016-06-10] MEDS: RT-ALBUTEROL/IPRATROPIUM 3 ML (DUONEB) VIAL INH SCH ×3 (07:17→19:10)
[2016-06-10] MEDS: RT-ADVAIR HFA 115/21 MCG PER PUFF IH SCH ×2 (07:17→19:10)
[2016-06-10 08:02] VITALS: BP 126/82
--- NOTE | 2016-06-10 08:27 | Progress Note (SOAP) ---
Subjective Subjective 70 yo female readmitted with psychogenic stridor- Pt reports she choked 3x. Has continued stridor- Ate all of her breakfast this AM. Review of Systems General: No Chills, No Night Sweats, Fatigue, Malaise HEENT: Head Aches Pulmonary: Dyspnea, Cough, Other (stridor, sensation of her throat being full) Cardiovascular: No: Chest Pain Gastrointestinal: No: Abdominal Pain, Nausea, Vomiting Genitourinary: Dysuria, Frequency Musculoskeletal: No: neck pain, shoulder pain Neurological: Weakness Objective Exam Vital Signs Vital Signs Date Time Temp Pulse Resp B/P (MAP) Pulse Ox O2 Delivery O2 Flow Rate FiO2 06/10/16 08:02 96.0 66 22 126/82 95 Room Air 06/10/16 00:00 97.4 67 30 160/93 93 Room Air 06/09/16 20:00 96.4 76 20 146/88 94 Room Air 06/09/16 19:11 93 06/09/16 16:20 96.9 65 20 160/94 95 Room Air 06/09/16 15:05 93 06/09/16 12:00 98.4 73 22 132/60 94 Room Air I & O 06/10/16 07:00 Intake Total 3940 ml Output Total 2500 ml Balance 1440 ml General Appearance: WD/WN, Mild Distress Eyes: Bilateral Eye Normal Inspection HEENT: Normal ENT Inspection Neck: Non Tender, Supple Respiratory: Chest Non Tender, Rhonci (coarse breath sounds, upper airway sounds transmitting down), Stridor Cardiovascular: Regular Rate, Rhythm, Systolic Murmur Gastrointestinal: Normal Bowel Sounds, Non Tender, Soft Rectal: Deferred Back: No CVA Tenderness Extremity: Non Tender, No Calf Tenderness, No Pedal Edema Neurologic/Psychiatric: Alert, Oriented x3 Skin: Normal Color, Warm/Dry Results Lab Laboratory Tests 06/09/16 10:23: Glucometer 254H 06/09/16 15:58: Glucometer 177H 06/09/16 20:31: Glucometer 182H 06/10/16 05:55: Glucometer 133H Assessment/Plan Assessment/Plan Assessment/Plan 70 yo F Stridor--etiology likely psychogenic-- IV ativan - Dr. Medrano will see her next week in his office to repeat a laryngoscope Dysphagia/Choking-- modified barium swallow study ordered for 06/11/16 continue IV protonix Migraine--toradol and phenergan IV prn COPD--stable, on oxygen NC HTN- continue home meds Recurrent UTIs--urine culture + lactobacillus nitrofurantoin BID x 7 days - then back to daily. Diabetes mellitus with hyperglycemia- SSI B Dispo: No respiratory distress. Stridor noted when pt is not actively doing anything- she is unable to keep doing it with talking -scheduled for modified barium study 06/11/16 Problems: Clinical Quality Measures DVT/VTE Risk/Contraindication: Risk Factor Score Per Nursin RFS Level Per Nursing on Admit: 4+=Very High KARLEE WATERMAN MD Jun 10, 2016 08:27
[2016-06-10] MEDS ORDERED: NITROFURANTOIN 50 MG (MACRODANTIN) CAP PO SCH (09:00)
[2016-06-10] MEDS: PROPRANOLOL 20 MG (INDERAL) TABLET PO SCH ×2 (09:58→21:12)
[2016-06-10] MEDS: GABAPENTIN 300 MG (NEURONTIN) CAP PO SCH ×2 (09:58→21:12)
[2016-06-10] MEDS: PANTOPRAZOLE 40 MG/10 ML (PROTONIX) VIAL IV SCH ×2 (09:58→21:11)
[2016-06-10] MEDS: NITROFURANTOIN 100 MG (MACROBID) CAPSULE PO SCH ×2 (09:58→21:12)
[2016-06-10] MEDS: busPIRone 5 MG (BUSPAR) TAB PO SCH ×3 (09:58→21:12)
[2016-06-10] MEDS: DOCUSATE SODIUM 100 MG (COLACE) CAP PO SCH ×2 (13:02→21:00)
[2016-06-10 16:00] VITALS: BP 140/78
[2016-06-10] MEDS: rOPINIRole 1 MG (REQUIP) TABLET PO SCH (21:12)
[2016-06-10] MEDS: PRAMIPEXOLE 0.5 MG TAB (MIRAPEX) PO SCH (21:12)
[2016-06-10] MEDS: NS IV 1000 ML 1,000 ML IV SCH (21:32)
[2016-06-11 00:30] VITALS: BP 135/65
[2016-06-11] MEDS: LORazepam INJ 2 MG/ML (ATIVAN) VIAL IV SCH ×2 (05:35→12:02)
[2016-06-11] MEDS: inSUlin (REGULAR) HUMAN 1 UNIT/0.01 ML (CHARGE PER UNIT) SC SCH ×4 (06:00→21:04)
[2016-06-11] MEDS: RT-ALBUTEROL/IPRATROPIUM 3 ML (DUONEB) VIAL INH SCH ×3 (07:30→21:58)
[2016-06-11] MEDS: RT-ADVAIR HFA 115/21 MCG PER PUFF IH SCH ×2 (07:32→21:59)
[2016-06-11 08:10] VITALS: BP 134/63
[2016-06-11] MEDS: DOCUSATE SODIUM 100 MG (COLACE) CAP PO SCH ×2 (09:00→21:00)
[2016-06-11] MEDS: GABAPENTIN 300 MG (NEURONTIN) CAP PO SCH ×2 (09:25→21:04)
[2016-06-11] MEDS: PROPRANOLOL 20 MG (INDERAL) TABLET PO SCH ×2 (09:25→21:04)
[2016-06-11] MEDS: NITROFURANTOIN 100 MG (MACROBID) CAPSULE PO SCH ×2 (09:25→21:04)
[2016-06-11] MEDS: PANTOPRAZOLE 40 MG/10 ML (PROTONIX) VIAL IV SCH (09:25)
[2016-06-11] MEDS: busPIRone 5 MG (BUSPAR) TAB PO SCH ×3 (09:25→21:04)
--- NOTE | 2016-06-11 11:52 | Diagnostic Imaging Report ---
EXAMINATION: Modified barium swallow. Indication: Dysphagia Different consistencies of fluid and food was given mixed with barium and swallowing was visualized under fluoroscopy. FLUOROSCOPY TIME: One minute and 6 seconds FINDINGS: No aspiration seen.. IMPRESSION: No aspiration seen. Please refer to speech therapist's report for additional details . Dictated by: Dictated on workstation # [id number]
--- NOTE | 2016-06-11 13:34 | ST Mod Barium Swallow ---
Speech Evaluation-General Medical Diagnosis STRIDOR Onset Date: Jun 08, 2016 Therapy Diagnosis Therapy Diagnosis: DYSPAHGIA Precautions Precautions: None Precautions/Isolations: Fall Prevention, Standard Precautions, Pressure Ulcer Referral Referring Physician: ANUSHKA Reason for Referral: Evaluation/Treatment Medical History THE PATIENT INDICATES THAT SHE HAS A HISTORY OF VOICING CHANGES. SHE HAS SEEN DR. CARRILLO AND HAS RECEIVED SPEECH THERAPY FOR DYSPHONIA THERAPY AND HAS SUBSEQUENTLY BEEN DISCHARGED, MEETING HER GOALS. Social History Home: Single Level Speech Mod Barium Swallow Prior Level of Function NO DIFFICULTIES REPORTED BEFORE A COUPLE YEARS AGO WHEN SHE STARTED CHOKING ON "AIR." Oral Motor Skills Dentition Natural Dentures: Full Lingual Protrusion: Normal Lingual ROM: Normal Lingual Strength: Normal Velum: Normal Volitional Dry Swallow: Yes Gag Reflex: Yes Voluntary Cough: Yes Can Clear Throat Volitionally: Yes Textures-Lateral View Lateral View Food Presentation: Thin Liquid via Straw Oral Phase Labial Closure: No Impairment (WFL) Bolus Formation Pooling L/R: No Impairment (WFL) Bolus Formation Placement: No Impairment (WFL) Mastication Rotary Chew: No Impairment (WFL) A/P Lingual Propulsion: No Impairment (WFL) Lingual Movement: No Impairment (WFL) Oral Phase Residue: No Impairment (WFL) PATIENT'S ORAL SWALLOW APPEARED FUNCTIONAL FOR ALL CONSISTENCES PRESENTED. Pharyngeal Phase Swallow Response: No Impairment (WFL) Base of Tongue: No Impairment (WFL) Epiglottic Movement: No Impairment (WFL) Laryngeal Elevation: No Impairment (WFL) Vallecular Residue: Mild CLEARED WITH SECOND SWALLOW. OCCURED AFTER MECHANICAL SOFT CONSISTENCY. Pharyngeal Wall Residue: No Impairment (WFL) Piriform Sinus Residue: No Impairment (WFL) Laryngeal Penetration: None Aspiration Observations: None Other Pharyngeal Observations: NO S/S OF PHARYNGEAL DYSPHAIGA OBSERVED. 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 Speech Short Term Goals Short Term Goals Short Term Goals NO GOALS. Speech Jail Goals Jail Goals NO GOALS. Speech-Plan Patient/Family Goals Patient/Family Goals: TO BE ABLE TO SWALLOW Treatment Plan Speech Therapy Treatment Plan: Discontinue ST NO TREATMENT RECOMMENDED. Rehab Potential: Good Time Speech Therapy Time In: 11:30 Speech Therapy Time Out: 11:55 Total Billed Time: 25 Billed Treatment Time 1, MOD No NO TREATMENT RECOMMENDED BASED ON FUNCTIONAL SWALLOWING SKILLS OBSERVED DURING THIS MBS. KWAN GAMING Jun 11, 2016 13:34
[2016-06-11] MEDS ORDERED: WITCH HAZEL(TUCKS) 40 EA JAR TOP PRN (15:45)
[2016-06-11 16:16] VITALS: BP 117/81
[2016-06-11] MEDS: LORazepam 1 MG (ATIVAN) TAB PO SCH ×2 (17:51→23:51)
--- NOTE | 2016-06-11 19:37 | Progress Note (SOAP) ---
Subjective Subjective/Events-last exam Fwup psychogenic inspiratory stridor, COPD, recurrent UTIs, Migraine, Choking/ dysphagia. Still complains of stridor and choking. Not as much stridor on exam until end of examination then stridor increased. Objective Exam Vital Signs Date Time Temp Pulse Resp B/P (MAP) Pulse Ox O2 Delivery O2 Flow Rate FiO2 06/11/16 16:16 97.4 76 20 117/81 93 Nasal Cannula 2.00 06/11/16 14:00 92 06/11/16 08:10 97.6 70 26 134/63 95 06/11/16 07:30 96 2.00 06/11/16 07:30 96 06/11/16 00:30 97.8 72 28 135/65 95 Nasal Cannula 2.00 I & O 06/11/16 07:00 Intake Total 2820 ml Output Total 3100 ml Balance -280 ml Capillary Refill : Less Than 3 Seconds General Appearance: No Apparent Distress Neck: Supple Respiratory: Stridor Cardiovascular: Regular Rate, Rhythm Gastrointestinal: normal bowel sounds, non tender, soft Extremity: Non Tender, No Calf Tenderness, No Pedal Edema Neurologic/Psychiatric: Alert, Oriented x3 Results Lab Laboratory Tests 06/10/16 20:39: Glucometer 248H 06/11/16 06:01: Glucometer 159H 06/11/16 12:06: Glucometer 157H 06/11/16 15:48: Glucometer 237H Assessment/Plan Assessment/Plan Assess & Plan/Chief Complaint 1. Psychogenic Inspiratory Stridor--Change ativan to oral 2. COPD--stable 3. Recurrent UTIs--UC growing out lactobacillus 4. Migraine--stable 5. Choking/Dysphagia--modified barium swallow today Clinical Quality Measures DVT/VTE Risk/Contraindication: Risk Factor Score Per Nursin RFS Level Per Nursing on Admit: 4+=Very High NANNETTE REVELES DO Jun 11, 2016 19:37
[2016-06-11] MEDS: PRAMIPEXOLE 0.5 MG TAB (MIRAPEX) PO SCH (21:04)
[2016-06-11] MEDS: rOPINIRole 1 MG (REQUIP) TABLET PO SCH (21:04)
[2016-06-11] MEDS: PANTOPRAZOLE 40 MG (PROTONIX) TAB PO SCH (21:04)
[2016-06-11 23:21] VITALS: BP 123/72
[2016-06-12] MEDS: LORazepam 1 MG (ATIVAN) TAB PO SCH (05:57)
[2016-06-12] MEDS: inSUlin (REGULAR) HUMAN 1 UNIT/0.01 ML (CHARGE PER UNIT) SC SCH (06:01)
[2016-06-12 08:00] VITALS: BP 147/83
[2016-06-12] MEDS ORDERED: LORA0.5T PO (08:28)
--- NOTE | 2016-06-12 08:30 | Discharge Inst-Simple/Standard ---
Discharge Inst-Standard Discharge Medications New, Converted or Re-Newed RX: Other Patient Instructions/Follow Up Plan of Care/Instructions/FU: Fwup in [address] Medrano today at noon Activity as Tolerated: Yes Discharge Diet: ADA NANNETTE Hodgson DO Jun 12, 2016 8:30 am
[2016-06-12] MEDS: PROPRANOLOL 20 MG (INDERAL) TABLET PO SCH (08:32)
[2016-06-12] MEDS: NITROFURANTOIN 100 MG (MACROBID) CAPSULE PO SCH (08:32)
[2016-06-12] MEDS: PANTOPRAZOLE 40 MG (PROTONIX) TAB PO SCH (08:32)
[2016-06-12] MEDS: GABAPENTIN 300 MG (NEURONTIN) CAP PO SCH (08:32)
[2016-06-12] MEDS: busPIRone 5 MG (BUSPAR) TAB PO SCH (08:32)
[2016-06-12] MEDS: DOCUSATE SODIUM 100 MG (COLACE) CAP PO SCH (08:33)
[2016-06-12] MEDS: RT-ADVAIR HFA 115/21 MCG PER PUFF IH SCH (09:56)
[2016-06-12] MEDS: RT-ALBUTEROL/IPRATROPIUM 3 ML (DUONEB) VIAL INH SCH (09:56)
[2016-06-12 11:11] VITALS: BP 147/83
== END 2016-06-12 11:08 | disposition home or self-care (01) | DRG 204 ==
LOC: EDUNIT# 06:52 → ER 06:54 → UNDOADMOB 09:51 → 4TH 09:51 → UNDOADMOB 11:05 → OBSVTOIN 06-10 12:53 → INTOOBSV 06-10 12:53 → UNDODISIN 06-12 11:08
PROVIDERS: ADMIT Family Medicine; ATTEND Family Medicine
DX: R06.1 Stridor (principal); F54 Psychological and behavioral factors associated with disorders or diseases classified elsewhere; R13.10 Dysphagia, unspecified; N39.0 Urinary tract infection, site not specified; B96.89 Other specified bacterial agents as the cause of diseases classified elsewhere; J44.9 Chronic obstructive pulmonary disease, unspecified; G43.909 Migraine, unspecified, not intractable, without status migrainosus; G47.30 Sleep apnea, unspecified; E11.42 Type 2 diabetes mellitus with diabetic polyneuropathy; E11.65 Type 2 diabetes mellitus with hyperglycemia; I10 Essential (primary) hypertension; K21.9 Gastro-esophageal reflux disease without esophagitis; G25.81 Restless legs syndrome; F41.9 Anxiety disorder, unspecified; M79.7 Fibromyalgia; F32.9 Major depressive disorder, single episode, unspecified; Z99.81 Dependence on supplemental oxygen; Z95.810 Presence of automatic (implantable) cardiac defibrillator; Z79.84 Long term (current) use of oral hypoglycemic drugs
CPT/HCPCS: 74230; 82962; 94640; 94664; 94760; G0378

== ENCOUNTER 2016-08-04 06:07 | Emergency (ER) | payer MEDICARE ==
[~2016-08-04] VITALS: Ht 162.6 cm; Wt 99.8 kg
[~2016-08-04 06:07] MED LIST changes: +PANT40TA3 PO; +PHEN26CR RC; +ROPI2TAB3 PO
--- NOTE | 2016-08-04 06:43 | ED Headache ---
General Chief Complaint: Head/Cervical Problems Stated Complaint: HEADACHE X 3 DAYS Nursing Triage Note: HEADACHE X3 DAYS. Nursing Sepsis Screen: No Definite Risk Source: patient History of Present Illness Time seen by provider: 06:39 Initial Comments The patient is a 71-year-old white female with many previous visits. This is her ninth contacts this year. She reports that she has had a severe headache For 3 days now with no sign of breaking. There is photophobia. There is a stabbing pain in her head. There is pain in her neck. She complains of vertigo. Her only prophylaxis is Inderal 40 mg twice a day which she has taken for many years. She has a history of previous intolerance of triptans. Timing/Duration: other Severity/Quality: severe Prior Headaches/Recent Trauma: frequent headaches Associated Symptoms: fatigue, nausea/vomiting, vision changes Allergies and Home Medications Allergies Coded Allergies: hydromorphone (Verified Allergy, Mild, STRONG RASH, 06/08/16) Penicillins (Verified Allergy, Unknown, 06/08/16) Sulfa (Sulfonamide Antibiotics) (Verified Allergy, Unknown, 06/08/16) aspirin (Verified Adverse Reaction, Mild, ASPIRIN SENSITIVE, 06/08/16) sumatriptan (Verified Adverse Reaction, Mild, PALPITATIONS, 06/08/16) Home Medications Acetaminophen 325 Mg Tablet, 650 MG PO Q6H PRN for PAIN/FEVER, (Reported) TAKES 2 (325MG) TABLETS Buspirone HCl 5 Mg Tablet, 5 MG PO TID, (Reported) Cetirizine HCl 10 Mg Tablet, 10 MG PO BID PRN for ALLERGIES, (Reported) Fluticasone/Salmeterol 12 Gm Hfa.aer.ad, 2 PUFF IH BID, (Reported) Glimepiride 2 Mg Tablet, 2 MG PO BID, (Reported) Ipratropium/Albuterol Sulfate 3 Ml Ampul.neb, 3 ML NEB Q4H PRN for SHORTNESS OF BREATH, (Reported) Lorazepam 0.5 Mg Tablet, 0.5 MG PO QID, #120 Prescribed by: NANNETTE REVELES on 06/12/16 0828 Pantoprazole Sodium 40 Mg Tablet.dr, 40 MG PO DAILY, (Reported) Phenyleph/Pramoxin/Glycr/W.pet 26 Gm Cream..g., RC TID PRN for HEMORRHOIDS, ( Reported) Pramipexole Di-HCl 1 Mg Tablet, 1 MG PO 1700, (Reported) Propranolol HCl 40 Mg Tablet, 40 MG PO BID, (Reported) Ropinirole HCl 2 Mg Tablet, 2 MG PO HS, (Reported) Constitutional: see HPI Eyes: Blurred Vision, Photophobia Ears, Nose, Mouth, Throat: no symptoms reported Respiratory: no symptoms reported Cardiovascular: no symptoms reported Gastrointestinal: no symptoms reported Genitourinary: no symptoms reported Musculoskeletal: no symptoms reported Skin: no symptoms reported Psychiatric/Neurological: No Symptoms Reported Past Lnwhhcv-Jwgyum-Lxdkoe Hx Patient Social History Alcohol Use: Denies Use Recreational Drug Use: No Smoking Status: Never a Smoker 2nd Hand Smoke Exposure: Yes Recent Foreign Travel: No Contact w/Someone Who Travel: No Recent Infectious Disease Expo: No Recent Hopitalizations: No Immunizations Up To Date Tetanus Booster (TDap): Unknown PED Vaccines UTD: No Date of Pneumonia Vaccine: May 24, 2012 Date of Influenza Vaccine: Jan 25, 2016 Seasonal Allergies Seasonal Allergies: Yes Surgeries HX Surgeries: Yes Surgeries: Abdominal, Appendectomy, Cardiac, Defibrillator, Gallbladder, Hysterectomy, Oophorectomy, Pacemaker, Tonsillectomy Respiratory Hx Respiratory Disorders: Yes (COPD, wears oxygen) Respiratory Disorders: Asthma, Pneumonia, Chronic Bronchitis, Sleep Apnea, COPD Cardiovascular Hx Cardiac Disorders: Yes (HX CARDIAC ARREST DURING ENT SURGERY, PACER/ICD) Cardiac Disorders: High Cholesterol, Irregular Heartbeat Neurological Hx Neurological Disorders: Yes (PERIPHERAL NEUROPATHY) Neurological Disorders: Headaches /Migraines, Neuropathy 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 System : No Hx 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 Disorders: No Sexually Transmitted Disease: No Female 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 Disorders: Denies DISCOVERY GUIDE History: Menopausal Genitourinary Hx Genitourinary Disorders: Yes (RIGHT INTRARENAL STONE) Genitourinary Disorders: Kidney Infection, Bladder Infection, Kidney Stones, UTI-Chronic Gastrointestinal Hx Gastrointestinal Disorders: Yes (c-diff in march 2015) Gastrointestinal Disorders: Gastroesophageal Reflux, Diverticulosis, Hemorrhoids, C-Diff, Hiatal Hernia, Ulcer, Gall Bladder Disease, Irritable Bowel Musculoskeletal Hx Musculoskeletal Disorders: Yes (RESTLESS LEG SYNDROME) Musculoskeletal Disorders: Degenerate Disk Disease, Arthritis, Fibromyalgia Endocrine Hx Endocrine Disorders: Yes Endocrine Disorders: Diabetes, Non-Insulin dep HEENT HX ENT Disorders: Yes HEENT Disorders: Cataract Loss of Vision: Denies Hearing Impairment: Denies Cancer Hx Cancer: No Psychosocial Hx Psychiatric Problems: Yes Behavioral Health Disorders: Anxiety, Depression Integumentary HX Skin/Integumentary Disorder: Yes Skin/Integumentary Disorders: Pruritis Blood Transfusions Hx Blood Disorders: No Adverse Reaction to a Blood Tr: No Family Medical History Significant Family History: No Pertinent Family Hx Family Medial History: Alzheimer's disease 19 FATHER Cardiovascular disease 19 FATHER 19 MOTHER Completed stroke 19 MOTHER Hypertension 19 FATHER 19 MOTHER Myocardial infarction 19 FATHER 19 MOTHER No Family History of: Diabetes mellitus Physical Exam Vital Signs Vital Sign - Last 12Hours 08/04/16 06:16 Temp 98.0 Pulse 67 Resp 20 B/P (MAP) 154/74 Pulse Ox 95 O2 Delivery Room Air Capillary Refill : Less Than 3 Seconds General Appearance: moderate distress HEENT: normal ENT inspection Neck: full range of motion Cardiovascular: normal peripheral pulses, regular rate, rhythm, no edema, no gallop, no JVD, no murmur Respiratory: chest non-tender, lungs clear, normal breath sounds, no respiratory distress, no accessory muscle use Gastrointestinal: normal bowel sounds, non tender, soft, no organomegaly, no pulsatile mass Extremities: normal range of motion, non-tender, normal inspection, no pedal edema, no calf tenderness, normal capillary refill, pelvis stable Psychiatric: alert, oriented x 3, depressed affect Crainal Nerves: normal hearing, normal speech, PERRL Motor/Sensory: no motor deficit Skin: normal color, warm/dry Lymphatic: no adenopathy Progress/Results/Core Measures Results/Orders My Orders Orders - ROMI KAUR MD Ns Iv 1000 Ml (Sodium Chloride 0.9%) (08/04/16 06:45) Ketorolac Injection (Toradol Injection) (08/04/16 06:45) Diphenhydramine Injection (Benadryl Inje (08/04/16 06:45) Prochlorperazine Injection (Compazine In (08/04/16 06:45) Diphenhydramine Injection (Benadryl Inje (08/04/16 06:45) Saline Lock/Iv-Start (08/04/16 06:56) Medications Given in ED Current Medications Medications Dose Ordered Sig/Alannah Route Start Time Stop Time Status Last Admin Dose Admin Diphenhydramine HCl 50 mg ONCE ONCE IVP 08/04/16 06:45 08/04/16 06:49 DC 08/04/16 06:45 50 MG Ketorolac Tromethamine 30 mg ONCE ONCE IVP 08/04/16 06:45 08/04/16 06:46 DC 08/04/16 06:44 30 MG Prochlorperazine Edisylate 10 mg ONCE ONCE IV 08/04/16 06:45 08/04/16 06:46 DC 08/04/16 06:44 10 MG Vital Signs/I&O Vital Sign - Last 12Hours 08/04/16 06:16 Temp 98.0 Pulse 67 Resp 20 B/P (MAP) 154/74 Pulse Ox 95 O2 Delivery Room Air Blood Pressure Mean: 100 Departure Communication Progress Notes 0818 patient reports she is feeling much better Impression Impression: Primary Impression: Migraine Disposition: 01 HOME, SELF-CARE Condition: Improved Departure-Patient Inst. Decision time for Depature: 08:16 Referrals: NANNETTE REVELES DO (PCP/Family) Primary Care Physician Patient Instructions: Migraine Headache (DC) Add. Discharge Instructions: All discharge instructions reviewed with patient and/or family. Voiced understanding. Home to bed ROMI KAUR MD Aug 04, 2016 06:43
[2016-08-04] MEDS ORDERED: KETOROLAC 30 MG/ML VIAL IVP ONE (06:45)
[2016-08-04] MEDS ORDERED: diphenhydrAMINE 50 MG/ML INJ (BENADRYL) IVP ONE (06:45)
[2016-08-04] MEDS ORDERED: NS IV 1000 ML 1,000 ML IV SCH (06:45)
[2016-08-04] MEDS ORDERED: diphenhydrAMINE 50 MG/ML INJ (BENADRYL) IM ONE (06:45)
[2016-08-04] MEDS ORDERED: PROCHLORPERAZINE 10 MG/2ML INJ (COMPAZINE) IV ONE (06:45)
[2016-08-04 08:21] VITALS: BP 122/84
== END 2016-08-04 08:21 | disposition home or self-care (01) ==
LOC: EDUNIT# 06:07 → ER 06:08
DX: G43.909 Migraine, unspecified, not intractable, without status migrainosus (principal); J44.9 Chronic obstructive pulmonary disease, unspecified; E11.9 Type 2 diabetes mellitus without complications; Z79.84 Long term (current) use of oral hypoglycemic drugs; Z79.899 Other long term (current) drug therapy; Z95.810 Presence of automatic (implantable) cardiac defibrillator
CPT/HCPCS: 96361; 96374; 96375

== ENCOUNTER → 2016-09-19 | Outpatient (CLI) | payer MEDICARE ==
[2016-09-19 11:47] LABS: ALANINE AMINOTRANSFERASE 37 U/L (0-55); ALBUMIN 3.8 GM/DL (3.2-4.5); ANION GAP 8 MMOL/L (5-14); ASPARTATE AMINO TRANSFERASE 32 U/L (5-34); BILIRUBIN,TOTAL 0.4 MG/DL (0.1-1.0); BLOOD UREA NITROGEN 12 MG/DL (7-18); BUN/CREATININE RATIO 14; CALCIUM 9.3 MG/DL (8.5-10.1); CARBON DIOXIDE 30 MMOL/L (21-32); CHLORIDE 103 MMOL/L (98-107); CHOLESTEROL 158 MG/DL (< 200); CREATININE SERUM 0.84 MG/DL (0.60-1.30); DIRECT LDL 110 MG/DL (1-129); GFR ESTIMATED > 60; GLUCOSE 150 MG/DL (70-105); POTASSIUM 4.4 MMOL/L (3.6-5.0); SODIUM 141 MMOL/L (135-145); TOTAL PROTEIN 6.6 GM/DL (6.4-8.2); TRIGLYCERIDES 113 MG/DL (<150); VLDL CHOLESTEROL 23 MG/DL (5-40)
== END ==
LOC: LAB 11:07
PROVIDERS: ATTEND Family Medicine
DX: E11.65 Type 2 diabetes mellitus with hyperglycemia (principal)
CPT/HCPCS: 36415; 80053; 80061

== ENCOUNTER 2016-09-28 13:47 | Emergency (ER) | payer MEDICARE ==
[~2016-09-28] VITALS: Ht 162.6 cm; Wt 98.9 kg
[2016-09-28] MEDS ORDERED: RT-ALBUTEROL/IPRATROPIUM 3 ML (DUONEB) VIAL ONE (13:56)
[2016-09-28] MEDS ORDERED: predniSONE 20 MG TAB PO ONE (14:00)
[2016-09-28] MEDS ORDERED: RT-ALBUTEROL/IPRATROPIUM 3 ML (DUONEB) VIAL INH ONE (14:00)
--- NOTE | 2016-09-28 14:00 | ED Cough/URI ---
General Stated Complaint: SORE THROAT,COUGH,FEVER,SOB Source: patient Exam Limitations: no limitations History of Present Illness Time seen by provider: 13:59 Initial Comments To ER with reports of a cough worse than usual since yesterday, fever, shortness of breath worse than her baseline and sore throat yesterday that seems to be back to normal today. She states that her had similar symptoms last week which they initially believed to be allergies but in hindsight this was likely a viral illness. She does have a history of COPD. Timing/Duration: constant Severity/Quality: moderate Associated Symptoms: cough Allergies and Home Medications Allergies Coded Allergies: hydromorphone (Verified Allergy, Mild, STRONG RASH, 06/08/16) Penicillins (Verified Allergy, Unknown, 06/08/16) Sulfa (Sulfonamide Antibiotics) (Verified Allergy, Unknown, 06/08/16) aspirin (Verified Adverse Reaction, Mild, ASPIRIN SENSITIVE, 06/08/16) sumatriptan (Verified Adverse Reaction, Mild, PALPITATIONS, 06/08/16) Home Medications Acetaminophen 325 Mg Tablet, 650 MG PO Q6H PRN for PAIN/FEVER, (Reported) TAKES 2 (325MG) TABLETS Buspirone HCl 5 Mg Tablet, 5 MG PO TID, (Reported) Cetirizine HCl 10 Mg Tablet, 10 MG PO BID PRN for ALLERGIES, (Reported) Fluticasone/Salmeterol 12 Gm Hfa.aer.ad, 2 PUFF IH BID, (Reported) Glimepiride 2 Mg Tablet, 2 MG PO BID, (Reported) Ipratropium/Albuterol Sulfate 3 Ml Ampul.neb, 3 ML NEB Q4H PRN for SHORTNESS OF BREATH, (Reported) Lorazepam 0.5 Mg Tablet, 0.5 MG PO QID, #120 Prescribed by: NANNETTE REVELES on 06/12/16 0828 Pantoprazole Sodium 40 Mg Tablet.dr, 40 MG PO DAILY, (Reported) Phenyleph/Pramoxin/Glycr/W.pet 26 Gm Cream..g., RC TID PRN for HEMORRHOIDS, ( Reported) Pramipexole Di-HCl 1 Mg Tablet, 1 MG PO 1700, (Reported) Propranolol HCl 40 Mg Tablet, 40 MG PO BID, (Reported) Ropinirole HCl 2 Mg Tablet, 2 MG PO HS, (Reported) Constitutional: see HPI, chills, fever EENTM: see HPI, throat pain Respiratory: see HPI, cough Cardiovascular: no symptoms reported Genitourinary: no symptoms reported Musculoskeletal: no symptoms reported Skin: no symptoms reported Psychiatric/Neurological: No Symptoms Reported Past Gijuijz-Yyqfvw-Aerfsz Hx Patient Social History 2nd Hand Smoke Exposure: Yes Recent Foreign Travel: No Contact w/Someone Who Travel: No Recent Hopitalizations: No Immunizations Up To Date Tetanus Booster (TDap): Unknown PED Vaccines UTD: No Date of Pneumonia Vaccine: May 24, 2012 Date of Influenza Vaccine: Jan 25, 2016 Seasonal Allergies Seasonal Allergies: Yes Surgeries HX Surgeries: Yes Surgeries: Abdominal, Appendectomy, Cardiac, Defibrillator, Gallbladder, Hysterectomy, Oophorectomy, Pacemaker, Tonsillectomy Respiratory Hx Respiratory Disorders: Yes (COPD, wears oxygen) Respiratory Disorders: Asthma, Pneumonia, Chronic Bronchitis, Sleep Apnea, COPD Cardiovascular Hx Cardiac Disorders: Yes (HX CARDIAC ARREST DURING ENT SURGERY, PACER/ICD) Cardiac Disorders: High Cholesterol, Irregular Heartbeat Neurological Hx Neurological Disorders: Yes (PERIPHERAL NEUROPATHY) Neurological Disorders: Headaches /Migraines, Neuropathy 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 System Hx 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 Disorders: No Sexually Transmitted Disease: No Female 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 Disorders: Denies INSURANCE CLAIMS ASSISTANT History: Menopausal Genitourinary Hx Genitourinary Disorders: Yes (RIGHT INTRARENAL STONE) Genitourinary Disorders: Kidney Infection, Bladder Infection, Kidney Stones, UTI-Chronic Gastrointestinal Hx Gastrointestinal Disorders: Yes (c-diff in march 2015) Gastrointestinal Disorders: Gastroesophageal Reflux, Diverticulosis, Hemorrhoids, C-Diff, Hiatal Hernia, Ulcer, Gall Bladder Disease, Irritable Bowel Musculoskeletal Hx Musculoskeletal Disorders: Yes (RESTLESS LEG SYNDROME) Musculoskeletal Disorders: Degenerate Disk Disease, Arthritis, Fibromyalgia Endocrine Hx Endocrine Disorders: Yes Endocrine Disorders: Diabetes, Non-Insulin dep HEENT HX ENT Disorders: Yes HEENT Disorders: Cataract Loss of Vision: Denies Hearing Impairment: Denies Cancer Hx Cancer: No Psychosocial Hx Psychiatric Problems: Yes Behavioral Health Disorders: Anxiety, Depression Integumentary HX Skin/Integumentary Disorder: Yes Skin/Integumentary Disorders: Pruritis Blood Transfusions Hx Blood Disorders: No Adverse Reaction to a Blood Tr: No Family Medical History Significant Family History: No Pertinent Family Hx Family Medial History: Alzheimer's disease 19 FATHER Cardiovascular disease 19 FATHER 19 MOTHER Completed stroke 19 MOTHER Hypertension 19 FATHER 19 MOTHER Myocardial infarction 19 FATHER 19 MOTHER No Family History of: Diabetes mellitus Physical Exam Vital Signs Vital Sign - Last 12Hours 09/28/16 14:06 Pulse Ox 97 O2 Delivery Nasal Cannula O2 Flow Rate 3.00 Capillary Refill : General Appearance: WD/WN, no apparent distress Eyes: Bilateral Eye EOMI, Bilateral Eye Normal Inspection, Bilateral Eye PERRL HEENT: PERRL/EOMI, normal ENT inspection Neck: non-tender, full range of motion Respiratory: no respiratory distress, no accessory muscle use Cardiovascular: regular rate, rhythm, no murmur Gastrointestinal: normal bowel sounds, non tender, soft Extremities: normal range of motion, non-tender (Neurologic she is) Neurologic/Psychiatric: alert, normal mood/affect, oriented x 3 Skin: normal color Progress/Results/Core Measures Results/Orders My Orders Orders - EARNESTINE CAMARGO APRN Chest Pa/Lat (2 View) (09/28/16 13:58) Prednisone Tablet (Deltasone Tablet) (09/28/16 14:00) Albuterol/Ipra Inhalation Soln (Duoneb I (09/28/16 14:00) Svn Sm Volume Nebulizer Rt-Rfs (09/28/16 14:00) Albuterol/Ipra Inhalation Soln (Duoneb I (09/28/16 13:56) Albuterol Pre-Mix Nebs (Rt) (Proventil P (09/28/16 14:15) Albuterol Pre-Mix Nebs (Rt) (Proventil P (09/28/16 14:08) Medications Given in ED Current Medications Medications Dose Ordered Sig/Alannah Route Start Time Stop Time Status Last Admin Dose Admin Albuterol/ Ipratropium 3 ml ONCE ONCE INH 09/28/16 14:00 09/28/16 14:01 DC 09/28/16 14:06 3 ML Vital Signs/I&O Vital Sign - Last 12Hours 09/28/16 09/28/16 14:06 14:18 Pulse Ox 97 96 O2 Delivery Nasal Cannula Nasal Cannula O2 Flow Rate 3.00 3.00 Diagnostic Imaging Diagonstic Imaging: Xray Plain Films/CT/US/NM/MRI: chest Comments NAME: BRAYDON ARBOLEDA MED REC#: [id number] PT STATUS: REG ER : 1945 PHYSICIAN: EARNESTINE CAMARGO APRN ADMIT DATE: 09/28/16/ER Draft Date of Exam:09/28/16 CHEST PA/LAT (2 VIEW) INDICATION: Cough. Fever. COMPARISON: 06/07/2016. FINDINGS: PA and lateral views show the lungs to remain well-aerated and clear. Mild cardiomegaly again noted. ICD pacer is present on the left unchanged in appearance. No evidence of pulmonary edema. No pneumothorax or pleural effusion. IMPRESSION: Stable PA and lateral chest with no findings to suggest developing pneumonia or congestive failure. Dictated on workstation # [id number] Dict: 09/28/16 1434 Trans: 09/28/16 1437 [facility] [id number] Interpreted by: FRANKIE HOWARD MD Electronically signed by: Departure Impression Impression: Primary Impression: Bronchitis Additional Impression: COPD exacerbation Disposition: 01 HOME, SELF-CARE Condition: Stable Departure-Patient Inst. Decision time for Depature: 14:44 Referrals: NANNETTE REVELES DO (PCP/Family) Primary Care Physician Patient Instructions: Acute Bronchitis, Adult (DC) Add. Discharge Instructions: 1. Medication as directed 2. See your doctor next week for recheck 3. Return to ER for any worsening Scripts Benzonatate (Tessalon Perle) 100 Mg Capsule 100 MG PO TID, #9 CAP Prov: EARNESTINE CAMARGO APRN 09/28/16 Azithromycin (Azithromycin) 250 Mg Tablet 250 MG PO UD, #6 TAB Take 2 tablets on day 1 then 1 tablet daily 4 days. Prov: EARNESTINE CAMARGO APRN 09/28/16 Prednisone (Prednisone) 20 Mg Tab 40 MG PO DAILY, #6 TAB Prov: EARNESTINE CAMARGO APRN 09/28/16 EARNESTINE CAMARGO APRN Sep 28, 2016 14:00
[2016-09-28] MEDS ORDERED: RT-ALBUTEROL SULF 2.5 MG/3 ML PRE-MIX VIAL ONE (14:08)
[2016-09-28] MEDS ORDERED: RT-ALBUTEROL SULF 2.5 MG/3 ML PRE-MIX VIAL IH SCH (14:15)
--- NOTE | 2016-09-28 14:38 | Diagnostic Imaging Report ---
INDICATION: Cough. Fever. COMPARISON: 06/07/2016. FINDINGS: PA and lateral views show the lungs to remain well-aerated and clear. Mild cardiomegaly again noted. ICD pacer is present on the left unchanged in appearance. No evidence of pulmonary edema. No pneumothorax or pleural effusion. IMPRESSION: Stable PA and lateral chest with no findings to suggest developing pneumonia or congestive failure. Dictated by: Dictated on workstation # [id number]
[2016-09-28] MEDS ORDERED: BENZ-13 PO (14:46)
[2016-09-28] MEDS ORDERED: PRD20T PO (14:46)
[2016-09-28] MEDS ORDERED: AZIT250T5 PO (14:46)
[2016-09-28 14:55] VITALS: BP 142/82
== END 2016-09-28 14:55 | disposition home or self-care (01) ==
LOC: EDUNIT# 13:47 → ER 13:49
DX: J44.1 Chronic obstructive pulmonary disease with (acute) exacerbation (principal); F41.9 Anxiety disorder, unspecified; F32.9 Major depressive disorder, single episode, unspecified; M47.9 Spondylosis, unspecified; K21.9 Gastro-esophageal reflux disease without esophagitis; G43.909 Migraine, unspecified, not intractable, without status migrainosus; E78.00 Pure hypercholesterolemia, unspecified; E11.40 Type 2 diabetes mellitus with diabetic neuropathy, unspecified; I25.2 Old myocardial infarction; Z90.710 Acquired absence of both cervix and uterus; Z90.49 Acquired absence of other specified parts of digestive tract; Z95.0 Presence of cardiac pacemaker; Z99.81 Dependence on supplemental oxygen; Z95.810 Presence of automatic (implantable) cardiac defibrillator; Z87.442 Personal history of urinary calculi; Z77.22 Contact with and (suspected) exposure to environmental tobacco smoke (acute) (chronic)
CPT/HCPCS: 71020; 94640; 99283

== ENCOUNTER → 2016-10-08 | Outpatient (CLI) | payer MEDICARE ==
[~2016-10-08] MED LIST changes: +BENZ-13 PO
--- NOTE | 2016-10-08 11:06 | Diagnostic Imaging Report ---
2 views of the lumbar spine. INDICATION: Back pain. FINDINGS: There is kyphoplasty change in T12 vertebral body. Lumbar vertebrae have normal heights. There is minimal anterior translation of L3 over L4. Minimal anterior osteophytes without posterior osteophytes are evident in the lumbar spine. Lower lumbar spine facet joint arthropathy is suggested with increased sclerosis. Mild degenerative sclerotic changes at the SI joints more on the right side seen. Surgical clips in the upper right abdomen noted. IMPRESSION: Old compression fractures with kyphoplasty change at T12 level. Degenerative changes. Dictated by: Dictated on workstation # [id number]
--- NOTE | 2016-10-08 11:15 | Diagnostic Imaging Report ---
Two views of the thoracic spine. INDICATION: Back pain. FINDINGS: There is an old compression fracture with kyphoplasty change at the T12 level. The alignment of the posterior spinal line is satisfactory. There is focal kyphotic curvature around the old compression fracture. There is a mild multilevel anterior osteophyte formation seen in the lower thoracic spine. No posterior osteophytes are seen. There is a pacemaker with two cardiac leads seen. IMPRESSION: Old compression fracture of T12 with post-kyphoplasty change. Mild degenerative changes. Dictated by: Dictated on workstation # [id number]
--- NOTE | 2016-10-08 11:17 | Diagnostic Imaging Report ---
EXAMINATION: Three views of the cervical spine. INDICATION: Neck pain. FINDINGS: The lordotic curvature of the cervical spine is straightened. The alignment of the posterior spinal line however is satisfactory. The vertebral body heights are maintained. There is a moderate disc height loss at C5/C6 and C6-7 levels. Prominent anterior osteophytes are seen at these levels too. There is suggestion of small posterior osteophytes also at C5/6. Alignment at the lateral masses of C1 and C2 are preserved as demonstrated on the open-mouth odontoid view. IMPRESSION: Prominent disc degenerative changes at C5/C6 and C6/C7 levels. Dictated by: Dictated on workstation # [id number]
== END ==
LOC: RAD 10:25
PROVIDERS: ATTEND Nurse Practitioner Family
DX: M51.36 Other intervertebral disc degeneration, lumbar region (principal); M47.816 Spondylosis without myelopathy or radiculopathy, lumbar region; M48.54XA Collapsed vertebra, not elsewhere classified, thoracic region, initial encounter for fracture; Z98.890 Other specified postprocedural states
CPT/HCPCS: 72040; 72072; 72100

== ENCOUNTER → 2016-12-26 | Outpatient (CLI) | payer MEDICARE ==
[2016-12-26 15:57] LABS: ALANINE AMINOTRANSFERASE 32 U/L (0-55); ALBUMIN 3.7 GM/DL (3.2-4.5); ANION GAP 9 MMOL/L (5-14); ASPARTATE AMINO TRANSFERASE 38 U/L (5-34); BILIRUBIN,TOTAL 0.3 MG/DL (0.1-1.0); BLOOD UREA NITROGEN 9 MG/DL (7-18); BUN/CREATININE RATIO 10; CALCIUM 8.9 MG/DL (8.5-10.1); CARBON DIOXIDE 26 MMOL/L (21-32); CHLORIDE 100 MMOL/L (98-107); GFR ESTIMATED > 60; GLUCOSE 339 MG/DL (70-105); POTASSIUM 4.1 MMOL/L (3.6-5.0); SODIUM 135 MMOL/L (135-145); TOTAL PROTEIN 6.7 GM/DL (6.4-8.2)
[2016-12-26 16:16] LABS: THYROID STIMULATING HORMONE 1.68 UIU/ML (0.35-4.94)
== END ==
LOC: LAB 15:13
PROVIDERS: ATTEND Family Medicine
DX: E11.65 Type 2 diabetes mellitus with hyperglycemia (principal); E55.9 Vitamin D deficiency, unspecified; E53.8 Deficiency of other specified B group vitamins
CPT/HCPCS: 36415; 80053; 82306; 82607; 83036; 84443

== ENCOUNTER 2017-01-15 16:15 | Emergency (ER) | payer MEDICARE ==
[~2017-01-15] VITALS: Ht 162.6 cm; Wt 98.9 kg
--- NOTE | 2017-01-15 16:25 | ED Headache ---
General Stated Complaint: MIGRAINE Source: patient Exam Limitations: no limitations History of Present Illness Time seen by provider: 16:24 Initial Comments Uncontrolled by Tylenol at home. She has a history of migraines and this is similar. She has associated photophobia and nausea without vomiting. No fevers chills or neck pain. Timing/Duration: waxing and waning Severity/Quality: moderate Prior Headaches/Recent Trauma: occasional headaches Associated Symptoms: nausea/vomiting Allergies and Home Medications Allergies Coded Allergies: hydromorphone (Verified Allergy, Mild, STRONG RASH, 06/08/16) Penicillins (Verified Allergy, Unknown, 06/08/16) Sulfa (Sulfonamide Antibiotics) (Verified Allergy, Unknown, 06/08/16) aspirin (Verified Adverse Reaction, Mild, ASPIRIN SENSITIVE, 06/08/16) sumatriptan (Verified Adverse Reaction, Mild, PALPITATIONS, 06/08/16) Home Medications Acetaminophen 325 Mg Tablet, 650 MG PO Q6H PRN for PAIN/FEVER, (Reported) TAKES 2 (325MG) TABLETS Azithromycin 250 Mg Tablet, 250 MG PO UD, #6 Take 2 tablets on day 1 then 1 tablet daily 4 days. Prescribed by: EARNESTINE CAMARGO on 09/28/16 1446 Benzonatate 100 Mg Capsule, 100 MG PO TID, #9 Prescribed by: EARNESTINE CAMARGO on 09/28/16 1446 Buspirone HCl 5 Mg Tablet, 5 MG PO TID, (Reported) Cetirizine HCl 10 Mg Tablet, 10 MG PO BID PRN for ALLERGIES, (Reported) Fluticasone/Salmeterol 12 Gm Hfa.aer.ad, 2 PUFF IH BID, (Reported) Glimepiride 2 Mg Tablet, 2 MG PO BID, (Reported) Ipratropium/Albuterol Sulfate 3 Ml Ampul.neb, 3 ML NEB Q4H PRN for SHORTNESS OF BREATH, (Reported) Lorazepam 0.5 Mg Tablet, 0.5 MG PO QID, #120 Prescribed by: NANNETTE REVELES on 06/12/16 0828 Pantoprazole Sodium 40 Mg Tablet.dr, 40 MG PO DAILY, (Reported) Phenyleph/Pramoxin/Glycr/W.pet 26 Gm Cream..g., RC TID PRN for HEMORRHOIDS, ( Reported) Pramipexole Di-HCl 1 Mg Tablet, 1 MG PO 1700, (Reported) Prednisone 20 Mg Tab, 40 MG PO DAILY, #6 Prescribed by: EARNESTINE CAMARGO on 09/28/16 1446 Propranolol HCl 40 Mg Tablet, 40 MG PO BID, (Reported) Ropinirole HCl 2 Mg Tablet, 2 MG PO HS, (Reported) Constitutional: see HPI Eyes: No Symptoms Reported Ears, Nose, Mouth, Throat: no symptoms reported Respiratory: no symptoms reported Cardiovascular: no symptoms reported Genitourinary: no symptoms reported Musculoskeletal: no symptoms reported Skin: no symptoms reported Psychiatric/Neurological: No Symptoms Reported Past Obwmkaj-Xbrzge-Oceswj Hx Patient Social History 2nd Hand Smoke Exposure: Yes Recent Foreign Travel: No Contact w/Someone Who Travel: No Recent Hopitalizations: No Immunizations Up To Date Tetanus Booster (TDap): Unknown PED Vaccines UTD: No Date of Pneumonia Vaccine: May 24, 2012 Date of Influenza Vaccine: Jan 25, 2016 Seasonal Allergies Seasonal Allergies: Yes Surgeries History of Surgeries: Yes (CYSTS REMOVED FROM THE OVARY) Surgeries: Abdominal, Appendectomy, Cardiac, Defibrillator, Gallbladder, Hysterectomy, Oophorectomy, Pacemaker, Tonsillectomy Respiratory History of Respiratory Disorde: Yes (COPD, wears oxygen) Respiratory Disorders: Asthma, Pneumonia, Chronic Bronchitis, Sleep Apnea, COPD Currently Using CPAP: No Currently Using BIPAP: No Cardiovascular History of Cardiac Disorders: Yes Cardiac Disorders: High Cholesterol, Irregular Heartbeat Neurological History of Neurological Disord: Yes (PERIPHERAL NEUROPATHY) Neurological Disorders: Headaches /Migraines, Neuropathy 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 System Hx 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 Disorders: No Sexually Transmitted Disease: No Female 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 Disorders: Denies DISC RECORDIST History: Menopausal Genitourinary History of Genitourinary Disor: No Genitourinary Disorders: Kidney Infection, Bladder Infection, Kidney Stones, UTI-Chronic Gastrointestinal History of Gastrointestinal Di: Yes Gastrointestinal Disorders: Gastroesophageal Reflux, Diverticulosis, Hemorrhoids, C-Diff, Hiatal Hernia, Ulcer, Gall Bladder Disease, Irritable Bowel Musculoskeletal History of Musculoskeletal Dis: Yes (RESTLESS LEG SYNDROME) Musculoskeletal Disorders: Degenerate Disk Disease, Arthritis, Fibromyalgia Endocrine History of Endocrine Disorders: Yes Endocrine Disorders: Diabetes, Non-Insulin dep HEENT HEENT Disorders: Cataract Loss of Vision: Denies Hearing Impairment: Denies Cancer History of Cancer: No Psychosocial History of Psychiatric Problem: Yes Behavioral Health Disorders: Anxiety, Depression Integumentary History of Skin or Integumenta: Yes Skin/Integumentary Disorders: Pruritis Blood Transfusions History of Blood Disorders: No Adverse Reaction to a Blood Tr: No Family Medical History Significant Family History: No Pertinent Family Hx Family Medial History: Alzheimer's disease 19 FATHER Cardiovascular disease 19 FATHER 19 MOTHER Completed stroke 19 MOTHER Hypertension 19 FATHER 19 MOTHER Myocardial infarction 19 FATHER 19 MOTHER No Family History of: Diabetes mellitus Physical Exam Vital Signs Capillary Refill : General Appearance: WD/WN, no apparent distress HEENT: PERRL/EOMI, normal ENT inspection Neck: non-tender, full range of motion Respiratory: no respiratory distress, no accessory muscle use Gastrointestinal: non tender, soft Extremities: normal range of motion, non-tender Psychiatric: alert, oriented x 3 Crainal Nerves: normal hearing, normal speech, PERRL Motor/Sensory: no motor deficit, no sensory deficit Skin: normal color, warm/dry Progress/Results/Core Measures Results/Orders My Orders Orders - EARNESTINE CAMARGO APRN Ketorolac Injection (Toradol Injection) (01/15/17 16:30) Prochlorperazine Injection (Compazine In (01/15/17 16:30) Diphenhydramine Injection (Benadryl Inje (01/15/17 16:30) Departure Impression Impression: Primary Impression: Acute headache Disposition: 01 HOME, SELF-CARE Condition: Improved Departure-Patient Inst. Decision time for Depature: 16:25 Referrals: NANNETTE REVELES DO (PCP/Family) Primary Care Physician Patient Instructions: HEADACHE Add. Discharge Instructions: 1. Return to ER for any concerns 2. Follow-up with your doctor next week EARNESTINE CAMARGO APRN Jan 15, 2017 16:25
--- OUTSIDE RECORDS SUMMARY | 2017-01-15 16:27 | XMS REPORT | Continuity of Care Document ---
Author Author [facility] Organization [facility] Address Unknown Phone Unavailable Care Team Providers Care Track Surfacing Machine Operator Name Role Phone [employer] Unavailable Unavailable Problems Medications Allergies, Adverse Reactions, Alerts Immunizations Results Vital Signs Encounters Location Location Details Encounter Type Encounter Number Reason For Visit Attending Provider ADM Date DC Date Status Source Emma [place] Active [facility] Procedures Plan of Care Social History Assessment and Plan Family History Value Date Source Advance Directives Order Name Results Value Date Source
--- OUTSIDE RECORDS SUMMARY | 2017-01-15 16:27 | XMS REPORT | Encounter Summary ---
Author Author [facility] Organization [facility] Address Unknown Phone Unavailable Care Team Providers Care Professor Of Economics Name Role Phone PCP Unavailable Reason for Visit * Reason Comments Kidney Stone Encounter Details Date Type Department Care Team Description 10/15/2016 Office Visit [facility] Alejandro Rascon MD Nephrolithiasis (Primary Physicians - Urology [address]);Kidney stones [address] [place] [address] OFFICE BLDG [phone] [place] [address] Social History Tobacco Use Types Packs/Day Years Used Date Never Smoker Smokeless Tobacco: Never Used Alcohol Use Drinks/Week oz/Week Comments No 0 Standard 0.0 drinks or equivalent Sex Assigned at Date Recorded Not on file as of this encounter Last Filed Vital Signs Vital Sign Reading Time Taken Blood Pressure 146/91 10/15/2016 10:11 AM CDT Pulse 110 10/15/2016 10:11 AM CDT Temperature - - Respiratory Rate - - Oxygen Saturation - - Inhaled Oxygen - - Concentration Weight 100.2 kg (221 lb) 10/15/2016 10:11 AM CDT Height 163.8 cm (5' 4.5") 10/15/2016 10:11 AM CDT Body Mass Index 37.35 10/15/2016 10:11 AM CDT in this encounter Progress Notes * Alejandro Rascon MD - 10/15/2016 9:30 AM CDT Formatting of this note may be different from the original. Urology Clinic Note Date of Service: 10/15/2016 Subjective: Diana Gregory is a 71 y.o. female who presents for non-obstructing nephrolithiasis History of Present Illness Mrs Gregory is a 71 female with an extensive past medical hx and is know to Urology for recurrent UTIs. It was during her evaluation for recurrent UTIs that a non-obstructing right renal calculus was identified. She was referred to Dr. Rascon by Dr. Benavides for possible stone therapy. She denies any prior hx of nephrolithiasis. She currently endorses active LUTS and chronic back pain. She denies any active renal colic. CT A/P on 08/24/16 demonstrates a small non-obstructing calculus on the right.. No ureteral stones or hydronephrosis identified. In regards to her diet, she admits to frequent frozen food consumption and limited water intake. 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 Review of Systems Constitutional: Positive for activity change and fever. Negative for appetite change, chills, diaphoresis, fatigue and unexpected weight change. HENT: Positive for congestion and mouth sores. Negative for sinus pressure. Eyes: Negative for visual disturbance. Respiratory: Negative for apnea, cough, chest tightness and shortness of breath. Cardiovascular: Negative for chest pain, palpitations and leg swelling. Gastrointestinal: Negative for abdominal distention, abdominal pain, blood in stool, constipation, diarrhea, nausea, rectal pain and vomiting. Genitourinary: Positive for difficulty urinating, flank pain, frequency and hematuria. Negative for decreased urine volume, dyspareunia, dysuria, enuresis, genital sores, menstrual problem, pelvic pain, urgency, vaginal bleeding, vaginal discharge and vaginal pain. Musculoskeletal: Negative for arthralgias, back pain, gait problem and myalgias. Skin: Positive for rash. Negative for wound. Neurological: Positive for dizziness, weakness, light-headedness and numbness. Negative for tremors, seizures, syncope and headaches. Hematological: Negative for adenopathy. Does not bruise/bleed easily. Psychiatric/Behavioral: Negative for decreased concentration and dysphoric mood. The patient is not nervous/anxious. Past Medical History: Diagnosis Date Anxiety disorder Arthritis Asthma Bronchitis 09/2016 Cataract Chronic migraine Colon polyps COPD (chronic obstructive pulmonary disease) (HCC) Depression DM (diabetes mellitus) (HCC) Dyslipidemia Fibromyalgia Heart attack (HCC) Inflammatory bowel disease Kidney stones On supplemental oxygen therapy Peripheral neuropathy (HCC) Ulcer of the stomach and intestine Past Surgical History: Procedure Laterality Date BACK SURGERY BLADDER SURGERY CARPAL TUNNEL RELEASE Bilateral COLON SURGERY CYSTOURETHROSCOPY HX APPENDECTOMY HX CHOLECYSTECTOMY HX HEART CATHETERIZATION HX HYSTERECTOMY HX SURGERY EDG HX TONSILLECTOMY NOSE SURGERY OOPHORECTOMY OTHER SURGICAL HISTORY lap neison URETHRAL STRICTURE DILATATION Social History Social History Marital status: Spouse name: N/A Number of children: N/A Years of education: N/A Occupational History Not on file. Social History Main Topics Smoking status: Never Smoker Smokeless tobacco: Never Used Alcohol use No Drug use: No Sexual activity: No Other Topics Concern Not on file Social History Narrative History reviewed. No pertinent family history. Allergies Allergen Reactions Pcn [Penicillins] RASH and ITCHING Sulfa (Sulfonamide Antibiotics) RASH and ITCHING Asa [Aspirin] STOMACH UPSET and SEE COMMENTS Is ok to take 81mg asa Imitrex [Sumatriptan Succinate] ANXIETY Objective: amitriptyline (ELAVIL) 50 mg tablet Take 50 mg by mouth at bedtime daily. aspirin EC 81 mg tablet Take 81 mg by mouth daily. Take with food. azithromycin (ZITHROMAX) 250 mg tablet Take 250 mg by mouth daily. Take 2 tabs by mouth on day 1, followed by 1 tab by mouth daily on days 2 - 5. Indications: two days left on antibiotics for bronchitis busPIRone (BUSPAR) 5 mg tablet Take 5 mg by mouth three times daily. estradiol (ESTRACE) 0.01 % (0.1 mg/g) vaginal cream Insert or Apply to vaginal area three times weekly. Apply as directed, apply at bedtime fluticasone-salmeterol(+) (ADVAIR HFA) 115-21 mcg/actuation inhaler Inhale 2 Puffs by mouth into the lungs twice daily. glimepiride (AMARYL) 2 mg tablet Take 2 mg by mouth daily with breakfast. LORazepam (ATIVAN) 0.5 mg tablet Take 1 Tab by mouth every 6 hours as needed for Nausea. Indications: takes 4-5 prn nitrofurantoin monohyd/m-cryst (MACROBID) 100 mg capsule Take 100 mg by mouth every 48 hours. Take with food. omeprazole DR(+) (PRILOSEC) 40 mg capsule other medication Take 1 Dose by mouth as Needed. Medication Name & Strength : cough syrup Dose(how many):as directed Frequency(how often): prn Indications: could not remember name for cough with bronchitis pantoprazole DR (PROTONIX) 40 mg tablet Take 40 mg by mouth daily. pramipexole (MIRAPEX) 1 mg tablet Take 1 mg by mouth daily. PREDNISONE PO Take by mouth. Indications: last day for prednisone for episode of bronchitis propranolol (INDERAL) 40 mg tablet Take 60 mg by mouth twice daily. Vitals: 10/15/16 1011 BP: (!) 146/91 Pulse: 110 Weight: 100.2 kg (221 lb) Height: 163.8 cm (64.5") Body mass index is 37.35 kg/(m^2). Physical Exam Constitutional: She is oriented to person, place, and time. She appears well- developed and well-nourished. No distress. Obese. Cane dependent. HENT: Head: Normocephalic. Eyes: Conjunctivae are normal. Pupils are equal, round, and reactive to light. Neck: Normal range of motion. Neck supple. Cardiovascular: Normal rate. Pulmonary/Chest: Effort normal and breath sounds normal. No respiratory distress. She has no wheezes. Abdominal: Soft. Bowel sounds are normal. She exhibits no distension. There is no tenderness. Musculoskeletal: Normal range of motion. Neurological: She is alert and oriented to person, place, and time. Skin: Skin is warm and dry. No rash noted. No erythema. Psychiatric: She has a normal mood and affect. Her behavior is normal. CT Scan (08/24/16) IMPRESSION 1. Small bilateral renal calculi. Subcentimeter hypodensity lower pole left kidney is too small to characterize but probably a benign cyst. No hydronephrosis, enhancing renal mass or urothelial filling defect in the opacified portions of the renal collecting systems. 2. Mild hepatomegaly with diffuse steatosis. 3. No abdominopelvic lymphadenopathy or ascites. Assessment and Plan: Problem Kidney stones -- 10/15/16: Life Skills Specialist evaluation non-obstructing stone. CT shows a 4.6 mm non- obstructing renal calculus. Hx of chronic back pain. Follows w/ Dr. Benavides for persistent LUTS. UDS shows large bladder capacity, adequate emptying, and + DO w/ leak. Kidney stones 71F well known to Urology for bothersome LUTS and recurrent UTIs. Now w/ non- obstructing renal calculi and intermittent flank pain. Flank/back complaints are likely chronic and are much more likely to be due to musculoskeletal sources given her prior hx of back injury. We did review modifiable factors and specifically highlighted dietary precipitants of stone disease. We strongly encouraged her to limit sodium and to stay well hydrated. -- Dietary sheet provided -- RTC in 6 months with repeat imaging and labs prior Patient seen and discussed with Dr. Rascon, who directed plan of care. Jocelyn [id number] Orders Placed This Encounter ABDOMEN AP ONLY BASIC METABOLIC PANEL ATTESTATION I personally performed the boyd portions of the E/M visit, discussed case with resident and concur with resident documentation of history, physical exam, assessment, and treatment plan unless otherwise noted. Patient referred to me by Dr. Benavides for further evaluation and treatment of a right kidney stone in the setting of recurrent urinary tract infections. Patient is essentially immobile and eats very poorly with high-salt diet with processed foods. She also has limited fluid intake. She is not symptomatic from her renal stone. It appears long-standing. She has also had problems with anesthesia previously. Her stone does not appear to be infectious in nature. No indication for treatment at this time. We discussed dietary changes. We will need to continue to monitor. F/U 6 months with KUB prior. Continue to follow-up with Dr. Benavides for recurrent infections. All questions answered. Staff name: Alejandro Rascon MD Date: 10/18/2016 in this encounter Miscellaneous Notes * Assessment & Plan Note - Donte Banks MD - 10/15/2016 7:50 PM CDT Associated Problem(s): Kidney stones 71F well known to Urology for bothersome LUTS and recurrent UTIs. Now w/ non- obstructing renal calculi and intermittent flank pain. Flank/back complaints are likely chronic and are much more likely to be due to musculoskeletal sources given her prior hx of back injury. We did review modifiable factors and specifically highlighted dietary precipitants of stone disease. We strongly encouraged her to limit sodium and to stay well hydrated. -- Dietary sheet provided -- RTC in 6 months with repeat imaging and labs prior in this encounter Plan of Treatment Name Priority Associated Diagnoses Order Schedule ABDOMEN AP ONLY Routine Nephrolithiasis Expected: 10/15/2016 (Approximate), Expires: 10/16/2017 BASIC METABOLIC PANEL Routine Nephrolithiasis Expected: 10/15/2016 (Approximate), Expires: 10/16/2017 as of this encounter Visit Diagnoses Diagnosis Nephrolithiasis - Primary Calculus of kidney Kidney stones Calculus of kidney in this encounter
--- OUTSIDE RECORDS SUMMARY | 2017-01-15 16:27 | XMS REPORT | Clinical Summary ---
Author Author [facility] Organization [facility] Address Unknown Phone Unavailable Care Team Providers Care Tank Car Inspector Name Role Phone PCP Unavailable Source Comments Some departments are not documenting in the electronic medical record. If you do not see the information that you expected, contact Release of Information in the Health Information Management department at [phone] for further assistance in locating additional records.[facility] Allergies Active Allergy Reactions Severity Noted Date Comments Penicillins RASH, ITCHING Medium 06/22/2016 Sulfa (Sulfonamide RASH, ITCHING Medium 06/22/2016 Antibiotics) Aspirin STOMACH UPSET, SEE Low 06/22/2016 Is ok to take 81mg asa COMMENTS Sumatriptan Succinate ANXIETY Low 06/22/2016 Current Medications Prescription Sig. Disp. Refills Start End Date Status Date pantoprazole DR Take 40 mg by mouth Active (PROTONIX) 40 mg tablet daily. nitrofurantoin Take 100 mg by mouth Active monohyd/m-cryst every 48 hours. Take with (MACROBID) 100 mg capsule food. propranolol (INDERAL) 40 Take 60 mg by mouth twice Active mg tablet daily. fluticasone-salmeterol(+) Inhale 2 Puffs by mouth Active (ADVAIR HFA) 115-21 into the lungs twice mcg/actuation inhaler daily. pramipexole (MIRAPEX) 1 Take 1 mg by mouth daily. Active mg tablet busPIRone (BUSPAR) 5 mg Take 5 mg by mouth three Active tablet times daily. glimepiride (AMARYL) 2 mg Take 2 mg by mouth daily Active tablet with breakfast. LORazepam (ATIVAN) 0.5 mg Take 1 Tab by mouth every Active tabletIndications: takes 6 hours as needed for 4-5 prn Nausea. Indications: takes 4-5 prn aspirin EC 81 mg tablet Take 81 mg by mouth Active daily. Take with food. estradiol (ESTRACE) 0.01 Insert or Apply to 42.5 g 11 06/23/19 Active % (0.1 mg/g) vaginal vaginal area three times 17 creamIndications: Vaginal weekly. Apply as atrophy directed, apply at bedtime amitriptyline (ELAVIL) 50 Take 50 mg by mouth at 08/21/19 Active mg tablet bedtime daily. [address](+) 08/21/19 Active (PRILOSEC) 40 mg capsule 17 PREDNISONE POIndications: Take by mouth. Active last day for prednisone Indications: last day for for episode of bronchitis prednisone for episode of bronchitis azithromycin (ZITHROMAX) Take 250 mg by mouth Active 250 mg tabletIndications: daily. Take 2 tabs by two days left on mouth on day 1, followed antibiotics for by 1 tab by mouth daily bronchitis on days 2 - 5. Indications: two days left on antibiotics for bronchitis other Take 1 Dose by mouth as Active medicationIndications: Needed. Medication Name & could not remember name Strength: cough syrup for cough with bronchitis Dose(how many):as directed Frequency(how often): prn Indications: could not remember name for cough with bronchitis Active Problems Problem Noted Date Slow urinary stream 08/24/2016 Overview: History of ER evaluation for Hopper catheter placement Recent increased S&S 08/22/16 L ast Assessment & Plan: Instructed CIC with patient and to help manage incomplete emptying Call next week with update regarding frequency and residuals With recurrent episodes and hx of sling Recommend URD testing ~ minimal prolapse noted on Pelvic exam ~ no pessary with URD testing FU with Dr Benavides for consultation Kidney stones 08/24/2016 Overview: -- 10/15/16: Targeting Acquisition Officer evaluation non-obstructing stone. CT shows a 4.6 mm non-obstructing renal calculus. Hx of chronic back pain. Follows w/ Dr. Benavides for persistent LUTS. UDS shows large bladder capacity, adequate emptying, and +DO w/ leak. L ast Assessment & Plan: 71F well known to Urology for bothersome LUTS and recurrent UTIs. Now w/ non-obstructing renal calculi and intermittent flank pain. Flank/back [...] months with repeat imaging and labs prior Recurrent UTI 06/22/2016 Overview: Recurrent UTIs 10/01/16: UDS which showed a large capacity, emptying, +DO with large leak L ast Assessment & Plan: - timed and double voiding - estrace tiw - cic post-void as needed - miralax daily - hold on anticholinergic secondary to severe constipation and patient will take on lkl Vaginal atrophy 06/22/2016 Overview: No history of breast cancer Not sexually active Vaginal irritation L ast Assessment & Plan: Continue Estrace cream-3 times a week-reviewed application Encounters Date Type Specialty Care Team Description 11/27/2016 Documentation Urology Mena Benavides MD 10/15/2016 Office Visit Urology Alejandro Rascon MD Nephrolithiasis ( Primary Dx);Kidney stones from Last 3 Months Social History Tobacco Use Types Packs/Day Years Used Date Never Smoker Smokeless Tobacco: Never Used Alcohol Use Drinks/Week oz/Week Comments No 0 Standard 0.0 drinks or equivalent Sex Assigned at Date Recorded Not on file Last Filed Vital Signs Vital Sign Reading [...] Mass Index 37.35 10/15/2016 10:11 AM CDT Plan of Treatment Health Maintenance Due Date Last Done Comments HEPATITIS C SCREENING 1946 PHYSICAL (COMPREHENSIVE) 1953 EXAM PERTUSSIS VACCINE 1957 TETANUS VACCINE 06/16/1963 BREAST CANCER SCREENING 1986 COLORECTAL CANCER 1996 SCREENING SHINGLES VACCINE 2006 OSTEOPOROSIS SCREENING 06/16/2011 PREVNAR/PNEUMOVAX (#1) 06/16/2011 INFLUENZA VACCINE 10/02/2016 Results Not on filefrom Last 3 Months
--- OUTSIDE RECORDS SUMMARY | 2017-01-15 16:27 | XMS REPORT | Encounter Summary ---
Author Author [facility] Organization [facility] Address Unknown Phone Unavailable Care Team Providers Care Laborer Hide House Name Role Phone PCP Unavailable Encounter Details Date Type Department Care Team Description 11/27/2016 Documentation [facility] Mena Benavides MD Physicians - Urology [address] [facility] [address] [facility] [address] OFFICE BLDG [phone] [place] [address] Social History Tobacco Use Types Packs/Day Years Used Date Never Smoker Smokeless Tobacco: Never Used Alcohol Use Drinks/Week oz/Week Comments No 0 Standard 0.0 drinks or equivalent Sex Assigned at Date Recorded Not on file as of this encounter Progress Notes * Eva Clemente LPN - 11/27/2016 2:06 PM CDT Patient to self cath up to three times daily for an indefinite period of time due to incomplete bladder emptying in this encounter Plan of Treatment Not on fileas of this encounter Visit Diagnoses Not on filein this encounter
[2017-01-15] MEDS ORDERED: PROCHLORPERAZINE 10 MG/2ML INJ (COMPAZINE) IM ONE (16:30)
[2017-01-15] MEDS ORDERED: KETOROLAC 60 MG/2 ML VIAL IM ONE (16:30)
[2017-01-15] MEDS ORDERED: diphenhydrAMINE 50 MG/ML INJ (BENADRYL) IM ONE (16:30)
[2017-01-15] MEDS ORDERED: cloNIDine 0.1 MG (CATAPRES) TAB PO ONE (16:45)
[2017-01-15 16:47] VITALS: BP 149/103
== END 2017-01-15 17:55 | disposition home or self-care (01) ==
LOC: EDUNIT# 16:15 → ER 16:16
DX: R51 Headache (principal); J44.9 Chronic obstructive pulmonary disease, unspecified; G47.30 Sleep apnea, unspecified; E78.00 Pure hypercholesterolemia, unspecified; K21.9 Gastro-esophageal reflux disease without esophagitis; M19.90 Unspecified osteoarthritis, unspecified site; E11.40 Type 2 diabetes mellitus with diabetic neuropathy, unspecified; F41.9 Anxiety disorder, unspecified; F32.9 Major depressive disorder, single episode, unspecified; Z87.440 Personal history of urinary (tract) infections; Z87.19 Personal history of other diseases of the digestive system; Z82.49 Family history of ischemic heart disease and other diseases of the circulatory system; Z87.448 Personal history of other diseases of urinary system; Z87.01 Personal history of pneumonia (recurrent); Z79.84 Long term (current) use of oral hypoglycemic drugs; Z77.22 Contact with and (suspected) exposure to environmental tobacco smoke (acute) (chronic); Z90.49 Acquired absence of other specified parts of digestive tract; Z90.710 Acquired absence of both cervix and uterus; Z95.0 Presence of cardiac pacemaker; Z90.89 Acquired absence of other organs
CPT/HCPCS: 99284

== ENCOUNTER 2017-01-18 17:21 | Emergency (ER) | payer MEDICARE ==
[~2017-01-18] VITALS: Ht 162.6 cm; Wt 98.9 kg
[~2017-01-18 17:21] MED LIST changes: +AZIT250T12 PO; -AZIT250T5 PO
--- OUTSIDE RECORDS SUMMARY | 2017-01-18 17:27 | XMS REPORT | Continuity of Care Document ---
Author Author [employer] Organization [facility] Address Unknown Phone Unavailable Care Team Providers Care Anode Adjuster Name Role Phone [employer] Unavailable Unavailable Problems Medications Allergies, Adverse Reactions, Alerts Immunizations Results Vital Signs Encounters Location Location Details Encounter Type Encounter Number Reason For Visit Attending Provider ADM Date DC Date Status Source Emma [place] Active [facility] Procedures Plan of Care Social History Assessment and Plan Family History Value Date Source Advance Directives Order Name Results Value Date Source
--- OUTSIDE RECORDS SUMMARY | 2017-01-18 17:29 | XMS REPORT | Encounter Summary ---
Author Author [facility] Organization [facility] Address Unknown Phone Unavailable Care Team Providers Care Mine Car Repairer Name Role Phone PCP Unavailable Encounter Details Date Type Department Care Team Description 11/27/2016 Documentation [facility] Mena Benavides MD Physicians - Urology [address] [facility] [address] FLO[address] [facility] [place] [address] OFFICE BLDG [phone] [place] [address] Social History Tobacco Use Types [...]
--- OUTSIDE RECORDS SUMMARY | 2017-01-18 17:29 | XMS REPORT | Clinical Summary ---
Author Author [facility] Organization [facility] Address Unknown Phone Unavailable Care Team Providers Care Service Agent Name Role Phone PCP Unavailable Source Comments Some departments are not documenting in the electronic medical record. If you do not see the information that you expected, contact Release of Information in the Health Information Management department at [phone] for further assistance in locating additional records.[facility] Allergies Active Allergy Reactions Severity Noted Date [...] consultation Kidney stones 08/24/2016 Overview: -- 10/15/16: Rope Tow Operator evaluation non-obstructing stone. CT shows a 4.6 [...] Description 11/27/2016 Documentation Urology Mena Benavides MD from Last 3 Months Social History Tobacco [...]
[2017-01-18] MEDS ORDERED: KETOROLAC 30 MG/ML VIAL IVP STA (18:12)
[2017-01-18 18:21] LABS: BASOPHILS # (AUTO) 0.1 10^3/uL (0.0-0.1); BASOPHILS % (AUTO) 1 % (0-10); EOSINOPHILS # (AUTO) 0.5 10^3/uL (0.0-0.3); EOSINOPHILS % (AUTO) 5 % (0-10); LYMPHOCYTES # (AUTO) 2.7 X 10^3 (1.0-4.0); LYMPHOCYTES % (AUTO) 26 % (12-44); MEAN CORPUSCULAR HEMOGLOBIN 30 PG (25-34); MEAN CORPUSCULAR HGB CONC 34 G/DL (32-36); MEAN CORPUSCULAR VOLUME 90 FL (80-99); MEAN PLATELET VOLUME 10.2 FL (7.4-10.4); MONOCYTES # (AUTO) 0.6 X 10^3 (0.0-1.0); MONOCYTES % (AUTO) 5 % (0-12); NEUTROPHILS # (AUTO) 6.9 X 10^3 (1.8-7.8); NEUTROPHILS % (AUTO) 64 % (42-75); PLATELET COUNT 247 10^3/uL (130-400); RED BLOOD COUNT 4.84 10^6/uL (4.35-5.85); RED CELL DISTRIBUTION WIDTH 12.7 % (10.0-14.5); WHITE BLOOD COUNT 10.7 10^3/uL (4.3-11.0)
[2017-01-18 18:31] LABS: ALANINE AMINOTRANSFERASE 41 U/L (0-55); ALBUMIN 3.8 GM/DL (3.2-4.5); AMYLASE 32 U/L (25-125); ANION GAP 10 MMOL/L (5-14); ASPARTATE AMINO TRANSFERASE 44 U/L (5-34); BILIRUBIN,TOTAL 0.4 MG/DL (0.1-1.0); BLOOD UREA NITROGEN 12 MG/DL (7-18); BUN/CREATININE RATIO 11; CALCIUM 9.3 MG/DL (8.5-10.1); CARBON DIOXIDE 25 MMOL/L (21-32); CHLORIDE 100 MMOL/L (98-107); CREATINE KINASE 64 U/L (29-168); CREATININE SERUM 1.08 MG/DL (0.60-1.30); GFR ESTIMATED 50; GLUCOSE 324 MG/DL (70-105); LIPASE 11 U/L (8-78); MAGNESIUM 1.7 MG/DL (1.8-2.4); POTASSIUM 3.9 MMOL/L (3.6-5.0); SODIUM 135 MMOL/L (135-145)
[2017-01-18 18:33] LABS: INR 0.9 (0.8-1.4); PROTHROMBIN TIME PATIENT 12.5 SEC (12.2-14.7)
[2017-01-18 18:36] LABS: BILIRUBIN,URINE NEGATIVE (NEGATIVE); KETONES,URINE 1+ (NEGATIVE); LEUKOCYTE ESTERASE ,URINE 3+ (NEGATIVE); NITRITE,URINE NEGATIVE (NEGATIVE); PH,URINE 6 (5-9); PROTEIN,URINE NEGATIVE (NEGATIVE); UROBILINOGEN,URINE NORMAL (NORMAL)
[2017-01-18 18:38] LABS: TROPONIN I < 0.30 NG/ML (<0.30)
--- NOTE | 2017-01-18 18:40 | Diagnostic Imaging Report ---
INDICATION: Left-sided rib pain. No known injuries. EXAMINATION: Two-view chest, 01/18/2017. COMPARISON: 09/28/2016. FINDINGS: Left-sided pacemaker is stable. The heart is unchanged. The pulmonary vasculature is also unchanged. There is atelectasis at the lung bases. There are no effusions. No pneumothorax. Post kyphoplasty seen in the lower thoracic region. IMPRESSION: Bibasilar atelectasis with other chronic changes as noted. No acute abnormality. Dictated by: Dictated on workstation # [id number]
[2017-01-18 18:45] LABS: WBC,URINE 25-50 /HPF
[2017-01-18] MEDS ORDERED: NS IV 1000 ML 1,000 ML IV ONE (19:05)
[2017-01-18] MEDS ORDERED: inSUlin (REGULAR) HUMAN 1 UNIT/0.01 ML (CHARGE PER UNIT) IV ONE (19:15)
[2017-01-18] MEDS ORDERED: cefTRIAXone INJECTION 1,000 MG in NS (IVPB) 50 ML IV ONE (19:15)
[2017-01-18] MEDS ORDERED: NS 100 ML (IVPB) BAG IV ONE (19:15)
[2017-01-18] MEDS ORDERED: IOHEXOL 350 MG/ML 100 ML (OMNIPAQUE 350) VIAL IV ONE (19:15)
--- NOTE | 2017-01-18 19:57 | Diagnostic Imaging Report ---
PROCEDURE: CT chest, abdomen, and pelvis with contrast. TECHNIQUE: Multiple contiguous axial images were obtained through the chest, abdomen, and pelvis after the administration of intravenous contrast. INDICATION: Left chest pain radiating to back. Abdominal distention. COMPARISON: CT abdomen and pelvis without contrast 01/27/2017. CT chest with IV contrast, 09/25/2009. FINDINGS: CT chest: Cardiac pacer. Mild scattered atherosclerotic calcifications. The thoracic aorta and pulmonary arteries are unremarkable on this nondedicated exam. Groundglass opacity in the lateral right upper lobe, peripherally. There is also a small groundglass opacity peripherally and several small pulmonary nodules, measuring up to 5 mm in the right lower lobe. There is an irregular pulmonary nodule in the anterior left upper lobe. No mediastinal, hilar or axillary lymphadenopathy. No pleural or pericardial effusion. Normal heart size. Chronic compression fracture of T12 which has been pretreated with vertebroplasty. No acute osseous findings. Mild spondylotic changes in the thoracic spine. CT abdomen and pelvis: Cholecystectomy. Hysterectomy. 3 mm nonobstructing calyceal tip renal stone in the right kidney. The liver, pancreas, spleen, adrenals, left kidney, both collecting systems and unopacified bladder are negative. The appendix is not identified and may be surgically absent. No suspicious inflammatory findings in the region of the cecum. Mild colonic diverticulosis without evidence of active diverticulitis. No free intraperitoneal air or fluid. No lymphadenopathy. No evidence of bowel obstruction. Mild spondylotic changes in the lumbar spine. No acute osseous findings. IMPRESSION: 1. Small groundglass opacities in the right lung and several small indeterminate pulmonary nodules in both lungs measuring up to 8 mm are indeterminate. These may be chronic versus infectious. However, neoplastic process cannot be excluded. Recommend repeat CT in three months. No mediastinal or hilar lymphadenopathy. 2. No acute CT findings in the abdomen or pelvis. Dictated by: Dictated on workstation # [id number]
[2017-01-18] MEDS ORDERED: LEVO500T2 PO (20:39)
[2017-01-18] MEDS ORDERED: TRAM-42 PO (20:40)
--- NOTE | 2017-01-18 20:41 | ED General ---
General Chief Complaint: Chest Wall/Rib Pain Stated Complaint: LT SIDED RIB PAIN Nursing Triage Note: C/o left side pain, below breast and radiates to back. Increases pain with movement. Has been present for several weeks. Now notes bloating in evenings. States she is sore Nursing Sepsis Screen: No Definite Risk Source of Information: Patient, Old Records History of Present Illness Time Seen by Provider: 18:03 Initial Comments PT ARRIVES VIA POV FROM HOME PT STATES SHE HAS HAD INTERMITTENT SHARP PAIN IN LEFT POSTERIOR RIB/FLANK AREA OFF AND ON FOR A COUPLE OF WEEKS STATES FOR THE LAST SEVERAL DAYS, PAIN HAS BEEN CONSTANT AND SEVERE AND IS THE WHOLE LEFT POSTERIOR RIB/FLANK AREA AND LEFT LOWER CHEST/RIB /LUQ AREA TO EPIGASTRIC AREA PAIN IS WORSE WITH ANY MOVEMENTS PT HAS A CHRONIC NON-PRODUCTIVE COUGH AND CHRONIC SHORTNESS OF BREATH FROM COPD AND THESE ISSUES ARE NO DIFFERENT THAN NORMAL. PT HAS NOT BEEN USING NEBULIZER, AND ONLY USES O2 PRN, AND HAS NOT USED IT TODAY HAS HAD TEMP OF 99 OFF AND ON FOR UNKNOWN LENGTH OF TIME NO NAUSEA/VOMITING/DIARRHEA--HAS BEEN CONSTIPATED NO URINARY SYMPTOMS HAS NOT SOUGHT CARE UNTIL TODAY STATES SHE HAS NOT TAKEN ANYTHING FOR PAIN PCP: DR. REVELES Allergies and Home Medications Allergies Coded Allergies: hydromorphone (Verified Allergy, Mild, STRONG RASH, 06/08/16) Penicillins (Unverified Allergy, Unknown, Pt has received Cefepime & Ceftriaxone in the past w/o issue, 01/18/17) Sulfa (Sulfonamide Antibiotics) (Verified Allergy, Unknown, 06/08/16) aspirin (Verified Adverse Reaction, Mild, ASPIRIN SENSITIVE, 06/08/16) sumatriptan (Verified Adverse Reaction, Mild, PALPITATIONS, 06/08/16) Home Medications Levofloxacin 500 Mg Tablet, 500 MG PO DAILY, #10 Prescribed by: PETER ASHLEY on 01/18/172038 Tramadol HCl 50 Mg Tablet, 50 MG PO Q4H, #20 Prescribed by: PETER ASHLEY on 01/18/172039 Constitutional: see HPI, fever EENTM: no symptoms reported Respiratory: see HPI, cough, dyspnea on exertion, No phlegm, short of breath, No wheezing Cardiovascular: see HPI, chest pain, No edema, No palpitations, No syncope, No other Gastrointestinal: see HPI, abdominal pain (LUQ), constipation, No diarrhea, No loss of appetite, No nausea, No vomiting Genitourinary: no symptoms reported Musculoskeletal: see HPI, back pain Skin: no symptoms reported, No rash Psychiatric/Neurological: No Symptoms Reported Hematologic/Lymphatic: No Symptoms Reported Immunological/Allergic: no symptoms reported Past Eltkjjd-Fsdsas-Rvermi Hx Patient Social History Alcohol Use: Denies Use Recreational Drug Use: No Smoking Status: Never a Smoker 2nd Hand Smoke Exposure: Yes Recent Foreign Travel: No Contact w/Someone Who Travel: No Recent Infectious Disease Expo: No Recent Hopitalizations: No Physical Abuse: No Sexual Abuse: No Mistreated: No Fear: No Immunizations Up To Date Tetanus Booster (TDap): Unknown PED Vaccines UTD: No Date of Pneumonia Vaccine: May 24, 2012 Date of Influenza Vaccine: Jan 25, 2016 Seasonal Allergies Seasonal Allergies: Yes Surgeries History of Surgeries: Yes (CYSTS REMOVED FROM THE OVARY) Surgeries: Abdominal, Appendectomy, Cardiac, Defibrillator, Gallbladder, Hysterectomy, Oophorectomy, Pacemaker, Tonsillectomy Respiratory History of Respiratory Disorde: Yes (COPD, wears oxygen PRN) Respiratory Disorders: Asthma, Pneumonia, Chronic Bronchitis, Sleep Apnea, COPD Currently Using CPAP: No Currently Using BIPAP: No Cardiovascular History of Cardiac Disorders: Yes Cardiac Disorders: High Cholesterol, Irregular Heartbeat Neurological History of Neurological Disord: Yes (PERIPHERAL NEUROPATHY) Neurological Disorders: Headaches /Migraines, Neuropathy 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 System Hx 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 Disorders: No Sexually Transmitted Disease: No Female 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 Disorders: Denies 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, Menopausal Genitourinary History of Genitourinary Disor: Yes Genitourinary Disorders: Kidney Infection, Bladder Infection, Kidney Stones, UTI-Chronic Gastrointestinal History of Gastrointestinal Di: Yes Gastrointestinal Disorders: Gastroesophageal Reflux, Diverticulosis, Hemorrhoids, C-Diff, Hiatal Hernia, Ulcer, Gall Bladder Disease, Irritable Bowel Musculoskeletal History of Musculoskeletal Dis: Yes (RESTLESS LEG SYNDROME) Musculoskeletal Disorders: Degenerate Disk Disease, Arthritis, Fibromyalgia, Chronic Back Pain Endocrine History of Endocrine Disorders: Yes Endocrine Disorders: Diabetes, Non-Insulin dep HEENT History of HEENT Disorders: Yes HEENT Disorders: Cataract Loss of Vision: Denies Hearing Impairment: Denies Cancer History of Cancer: No Psychosocial History of Psychiatric Problem: Yes Behavioral Health Disorders: Anxiety, Depression Suicide Risk Score: 0 Integumentary History of Skin or Integumenta: Yes Skin/Integumentary Disorders: Pruritis Blood Transfusions History of Blood Disorders: No Adverse Reaction to a Blood Tr: No Family Medical History Significant Family History: No Pertinent Family Hx Family Medial History: Alzheimer's disease 19 FATHER Cardiovascular disease 19 FATHER 19 MOTHER Completed stroke 19 MOTHER Hypertension 19 FATHER 19 MOTHER Myocardial infarction 19 FATHER 19 MOTHER No Family History of: Diabetes mellitus Physical Exam Vital Signs Vital Sign - Last 12Hours 01/18/17 01/18/17 17:50 20:57 Temp 98.3 Pulse 88 Resp 18 B/P (MAP) 141/81 Pulse Ox 94 O2 Delivery Room Air Capillary Refill : Less Than 3 Seconds General Appearance: No Apparent Distress, WD/WN, Obese HEENT: PERRL/EOMI Neck: Full Range of Motion, Normal Inspection, Non Tender, Supple Respiratory: Normal Breath Sounds, No Accessory Muscle Use, No Respiratory Distress, Other (TENDERNESS TO LEFT LOWER RIBS--ANTERIOR/LATERAL/POSTERIOR) Cardiovascular: Regular Rate, Rhythm, No Edema, No JVD, No Murmur, Normal Peripheral Pulses Gastrointestinal: Normal Bowel Sounds, No Organomegaly, No Pulsatile Mass, Soft , Tenderness (LUQ AND LEFT FLANK, EPIGASTRIC AREA) Back: No Vertebral Tenderness, CVA Tenderness (L) Extremity: Normal Capillary Refill, Normal Inspection, Normal Range of Motion, Non Tender, No Calf Tenderness, No Pedal Edema Neurologic/Psychiatric: Alert, Oriented x3, No Motor/Sensory Deficits, 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, 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 Norm as Tested Skin: Normal Color, Warm/Dry, No Rash Progress/Results/Core Measures Suspected Sepsis Recent Fever Within 48 Hours: No Infection Criteria Present: None New/Unexplained Altered Menta: No Sepsis Screen: No Definite Risk Sepsis Diagnosis: SIRS Temperature:98.3 Pulse: 88 Respiratory Rate: 18 Laboratory Tests 01/18/17 18:00: White Blood Count 10.7 Blood Pressure 141 /81 Mean: 101 Laboratory Tests 01/18/17 18:00: Creatinine 1.08, INR Comment 0.9, Platelet Count 247, Total Bilirubin 0.4 Results/Orders Lab Results Laboratory Tests Test 01/18/17 17:55 01/18/17 18:00 01/18/17 20:40 Range/Units Urine Color YELLOW Urine Clarity CLEAR Urine pH 6 5-9 Urine Specific [place] 1.020 1.016-1.022 Urine Protein NEGATIVE NEGATIVE Urine Glucose (UA) 4+ H NEGATIVE Urine Ketones 1+ H NEGATIVE Urine Nitrite NEGATIVE NEGATIVE Urine Bilirubin NEGATIVE NEGATIVE Urine Urobilinogen NORMAL NORMAL MG/DL Urine Leukocyte Esterase 3+ H NEGATIVE Urine RBC (Auto) 1+ H NEGATIVE Urine RBC NONE /HPF Urine WBC 25-50 H /HPF Urine Squamous Epithelial Cells 5-10 /HPF Urine Crystals NONE /LPF Urine Bacteria FEW H /HPF Urine Casts NONE /LPF Urine Mucus NEGATIVE /LPF Urine Culture Indicated YES White Blood Count 10.7 4.3-11.0 10^3/uL Red Blood Count 4.84 4.35-5.85 10^6/uL Hemoglobin 14.7 11.5-16.0 G/DL Hematocrit 44 35-52 % Mean Corpuscular Volume 90 80-99 FL Mean Corpuscular Hemoglobin 30 25-34 PG Mean Corpuscular Hemoglobin Concent 34 32-36 G/DL Red Cell Distribution Width 12.7 10.0-14.5 % Platelet Count 247 130-400 10^3/uL Mean Platelet Volume 10.2 7.4-10.4 FL Neutrophils (%) (Auto) 64 42-75 % Lymphocytes (%) (Auto) 26 12-44 % Monocytes (%) (Auto) 5 0-12 % Eosinophils (%) (Auto) 5 0-10 % Basophils (%) (Auto) 1 0-10 % Neutrophils # (Auto) 6.9 1.8-7.8 X 10^3 Lymphocytes # (Auto) 2.7 1.0-4.0 X 10^3 Monocytes # (Auto) 0.6 0.0-1.0 X 10^3 Eosinophils # (Auto) 0.5 H 0.0-0.3 10^3/uL Basophils # (Auto) 0.1 0.0-0.1 10^3/uL Prothrombin Time 12.5 12.2-14.7 SEC INR Comment 0.9 0.8-1.4 Activated Partial Thromboplast Time 22 L 24-35 SEC Sodium Level 135 135-145 MMOL/L Potassium Level 3.9 3.6-5.0 MMOL/L Chloride Level 100 98-107 MMOL/L Carbon Dioxide Level 25 21-32 MMOL/L Anion Gap 10 5-14 MMOL/L Blood Urea Nitrogen 12 7-18 MG/DL Creatinine 1.08 0.60-1.30 MG/DL Estimat Glomerular Filtration Rate 50 BUN/Creatinine Ratio 11 Glucose Level 324 H 70-105 MG/DL Calcium Level 9.3 8.5-10.1 MG/DL Magnesium Level 1.7 L 1.8-2.4 MG/DL Total Bilirubin 0.4 0.1-1.0 MG/DL Aspartate Amino Transf (AST/SGOT) 44 H 5-34 U/L Alanine Aminotransferase (ALT/SGPT) 41 0-55 U/L Alkaline Phosphatase 113 40-136 U/L Total Creatine Kinase 64 29-168 U/L Creatine Kinase MB 1.6 <6.6 NG/ML Troponin I < 0.30 <0.30 NG/ML B-Type Natriuretic Peptide 10.9 <100.0 PG/ML Total Protein 7.0 6.4-8.2 GM/DL Albumin 3.8 3.2-4.5 GM/DL Amylase Level 32 25-125 U/L Lipase 11 8-78 U/L Glucometer 154 H 70-110 MG/DL My Orders Orders - PETER ASHLEY DO Saline Lock/Iv-Start (01/18/17 18:03) Ekg Tracing (01/18/17 18:03) Monitor-Rhythm Ecg Trace Only (01/18/17 18:03) Amylase (01/18/17 18:03) BNP (01/18/17 18:03) Cbc With Automated Diff (01/18/17 18:03) Comprehensive Metabolic Panel (01/18/17 18:03) Creatine Kinase (01/18/17 18:03) Creatine Kinase Mb (01/18/17 18:03) Lipase (01/18/17 18:03) Magnesium (01/18/17 18:03) Protime With Inr (01/18/17 18:03) Partial Thromboplastin Time (01/18/17 18:03) Troponin I (01/18/17 18:03) Ua Culture If Indicated (01/18/17 18:03) Chest Pa/Lat (2 View) (01/18/17 18:03) Ketorolac Injection (Toradol Injection) (01/18/17 18:12) Urine Culture (01/18/17 17:55) Ct Chest/Abdomen/Pelvis W (01/18/17 18:55) Ceftriaxone Injection (Rocephin Injectio (01/18/17 19:15) Saline Lock/Iv-Start (01/18/17 19:05) Saline Lock/Iv-Start (01/18/17 19:05) Ns Iv 1000 Ml (Sodium Chloride 0.9%) (01/18/17 19:05) Insulin (Regular) Human (Humulin R (Per (01/18/17 19:15) Iohexol Injection (Omnipaque 350 Mg/Ml 1 (01/18/17 19:15) Ns (Ivpb) (Sodium Chloride 0.9% Ivpb Bag (01/18/17 19:15) Pharmacy Communication (Pharmacy Communi (01/18/17 19:08) Accucheck Stat ONCE (01/18/17 20:30) Magnesium Oxide Tablet (Mag Ox Tablet) (01/18/17 20:45) Magnesium Oxide Tablet (Mag Ox Tablet) (01/18/17 20:46) Magnesium Oxide Tablet (Mag Ox Tablet) (01/18/17 20:48) Medications Given in ED Current Medications Medications Dose Ordered Sig/Alannah Route Start Time Stop Time Status Last Admin Dose Admin Ceftriaxone Sodium 1000 mg/ Sodium Chloride 50 ml @ 100 mls/hr ONCE ONCE IV 01/18/17 19:15 01/18/17 19:44 DC 01/18/17 19:32 100 MLS/HR Insulin Human Regular 20 unit ONCE ONCE IV 01/18/17 19:15 01/18/17 19:16 DC 01/18/17 19:32 20 UNIT Iohexol 100 ml ONCE ONCE IV 01/18/17 19:15 01/18/17 19:16 DC 01/18/17 19:28 100 ML Magnesium Oxide 400 mg STK-MED ONCE .ROUTE 01/18/17 20:48 01/18/17 21:03 DC 01/18/17 20:50 400 MG Magnesium Oxide 2,000 mg ONCE ONCE PO 01/18/17 20:45 01/18/17 21:03 DC 01/18/17 20:56 2,000 MG Sodium Chloride 100 ml ONCE ONCE IV 01/18/17 19:15 01/18/17 19:16 DC 01/18/17 19:29 80 ML Sodium Chloride 1,000 ml @ 0 mls/hr Q0M ONCE IV 01/18/17 19:05 11/17/17 19:13 DC 01/18/17 19:32 1,000 MLS/HR Vital Signs/I&O Vital Sign - Last 12Hours 01/18/17 01/18/17 17:50 20:57 Temp 98.3 98.1 Pulse 88 80 Resp 18 18 B/P (MAP) 141/81 Pulse Ox 94 97 O2 Delivery Room Air Capillary Refill : Less Than 3 Seconds Blood Pressure Mean: 101 Progress Note : Progress Note NO DETERIORATION IN PT'S CONDITION DURING ER STAY BLOOD GLUCOSE DOWN TO 154 AT DISMISSAL PAIN IMPROVED WITH TORADOL ECG Initial ECG Impression Time: 18:16 Initial ECG Rate: 83 Initial ECG Rhythm: Normal Sinus Initial ECG Impression: Nonspecific Changes Initial ECG Comparisson: Unchanged Diagnostic Imaging Comments CXR--NO ACUTE PROCESS, PER RADIOLOGIST REPORT CT CHEST/ABDOMEN/PELVIS--GROUND-GLASS OPACITY ON RIGHT, MULTIPLE SMALL INDETERMINATE BILATERAL PULMONARY NODULES UP TO 8 MM IN SIZE, OTHERWISE NO ACUTE PROCESS--PER RADIOLOGIST REPORT @ 2028 Reviewed: Reviewed by Me Departure Impression Impression: Primary Impression: Urinary tract infection Additional Impressions: Uncontrolled diabetes mellitus Hypomagnesemia Disposition: 01 HOME, SELF-CARE Condition: Improved Departure-Patient Inst. Referrals: NANNETTE REVELES DO (PCP/Family) Primary Care Physician Patient Instructions: Blood Glucose Monitoring, DIABETES, Low Magnesium Level ( DC), Urinary Tract Infection, Adult (DC) Add. Discharge Instructions: CHECK YOUR BLOOD GLUCOSE AT LEAST 3 TIMES A DAY AND KEEP DIARY AND BRING TO YOUR NEXT DR'S VISIT CONTINUE YOUR REGULAR MEDICATIONS PRESCRIBED FOLLOW UP WITH YOUR DR NEXT WEEK FOR FURTHER CARE All discharge instructions reviewed with patient and/or family. Voiced understanding. Scripts Tramadol HCl (Ultram) 50 Mg Tablet 50 MG PO Q4H, #20 TAB Prov: PETER ASHLEY DO 01/18/17 Levofloxacin (Levaquin) 500 Mg Tablet 500 MG PO DAILY for INFECTION, #10 TAB Prov: PETER ASHLEY DO 01/18/17 PETER ASHLEY DO Jan 18, 2017 20:41
[2017-01-18] MEDS ORDERED: MAGNESIUM OXIDE (MAG-OX)400 MG TAB PO ONE (20:45)
[2017-01-18] MEDS ORDERED: MAGNESIUM OXIDE (MAG-OX)400 MG TAB ONE ×2 (20:46→20:48)
[2017-01-18 20:57] VITALS: BP 140/88
== END 2017-01-18 21:03 | disposition home or self-care (01) ==
LOC: EDUNIT# 17:21 → ER 17:23
DX: N39.0 Urinary tract infection, site not specified (principal); E11.40 Type 2 diabetes mellitus with diabetic neuropathy, unspecified; E83.42 Hypomagnesemia; F41.9 Anxiety disorder, unspecified; F32.9 Major depressive disorder, single episode, unspecified; J44.9 Chronic obstructive pulmonary disease, unspecified; K21.9 Gastro-esophageal reflux disease without esophagitis; E78.00 Pure hypercholesterolemia, unspecified; G43.909 Migraine, unspecified, not intractable, without status migrainosus; Z77.22 Contact with and (suspected) exposure to environmental tobacco smoke (acute) (chronic); Z87.11 Personal history of peptic ulcer disease; Z87.442 Personal history of urinary calculi; Z90.710 Acquired absence of both cervix and uterus; Z90.49 Acquired absence of other specified parts of digestive tract; Z90.89 Acquired absence of other organs; Z95.810 Presence of automatic (implantable) cardiac defibrillator
CPT/HCPCS: 36415; 71020; 71260; 74177; 80053; 81000; 82150; 82550; 82553; 82962; 83690; 83735; 83880; 84484; 85025; 85610; 85730; 87088; 93005; 93041; 96361; 96365; 96375

== ENCOUNTER 2017-02-16 00:35 | Emergency (ER) | payer MEDICARE ==
[~2017-02-16] VITALS: Ht 162.6 cm; Wt 98.0 kg
[~2017-02-16 00:35] MED LIST changes: +LEVO500T2 PO; +TRAM-42 PO
--- OUTSIDE RECORDS SUMMARY | 2017-02-16 00:41 | XMS REPORT | Clinical Summary ---
Author Author [facility] Organization [facility] Address Unknown Phone Unavailable Care Team Providers Care Manager Solution Name Role Phone PCP Unavailable Source Comments Some departments are not documenting in the electronic medical record. If you do not see the information that you expected, contact Release of Information in the Health Information Management department at [phone] for further assistance in locating additional records.[facility] Allergies Active Allergy Reactions Severity Noted Date [...] consultation Kidney stones 08/24/2016 Overview: -- 10/15/16: Powderer evaluation non-obstructing stone. CT shows a 4.6 [...]
--- OUTSIDE RECORDS SUMMARY | 2017-02-16 00:41 | XMS REPORT | Encounter Summary ---
Author Author [facility] Organization [facility] Address Unknown Phone Unavailable Care Team Providers Care Weather Teacher Name Role Phone PCP Unavailable Encounter Details Date Type Department Care Team Description 11/27/2016 Documentation [facility] Mena Benavides MD Physicians - Urology [address] [place] [id number] [facility] [place] [address] OFFICE BLDG [phone] [place] [address] Social History Tobacco Use Types [...]
--- OUTSIDE RECORDS SUMMARY | 2017-02-16 00:41 | XMS REPORT | Continuity of Care Document ---
Author Author [facility] Organization [facility] Address Unknown Phone Unavailable Care Team Providers Care Search Director Name Role Phone [employer] Unavailable Unavailable Problems Medications Allergies, Adverse Reactions, Alerts Immunizations Results Vital Signs Encounters Location Location Details Encounter Type Encounter Number Reason For Visit Attending Provider ADM Date DC Date Status Source [place] Active [facility] Procedures Plan of Care Social History Assessment and Plan Family History Value Date Source Advance Directives Order Name Results Value Date Source
[2017-02-16] MEDS ORDERED: LACTATED RINGERS 1,000 ML IV ONE (01:00)
[2017-02-16] MEDS ORDERED: ONDANSETRON 4 MG/2 ML (SDV) Z0FRAN IVP ONE (01:00)
--- NOTE | 2017-02-16 01:06 | ED Syncope ---
General Chief Complaint: Dizziness/Syncope Stated Complaint: VERTIGO Source of Information: Patient Exam Limitations: No Limitations History of Present Illness Time Seen by Provider: 01:04 Initial Comments Patient presents to ER with a chief complaint of just prior to arrival she was up in her kitchen and started the get dizzy and like she could pass out. She says her vision faded but she did not completely pass out nor did she fall or hit her head. She's had these before. She's never had a stroke but she does have a history of a pacemaker and defibrillator placed. She is known to Dr. Adame she has had an echocardiogram, carotid ultrasounds, heart catheterizations. She is not having any chest pain however she has been coughing a lot more lately and had an x-ray done by her primary care physician and told she thought she had a couple spots to could be pneumonia so she was placed on an antibiotic. Just prior to this antibiotic however she was on a different antibiotic for a urinary tract infection. She now has a yeast infection and has used a 3 day antifungal cream but does not feel that it is gone away completely. She has been eating and drinking okay and taking all of her medicines except for the aspirin. She just forgot to take Aspirin when she was at the store recently. She is having some nausea presently but no sweats. No history of smoking, hypothyroidism. She does have COPD but is only on antiallergy pills and oxygen at night to sleep. The patient says she had her pacemaker defibrillator interrogated Saturday, 3 days ago and everything was normal and she was told she had 3 more years left on the battery. She has not felt it fire or any similar sensation tonight. The patient states she has a history of kidney stones but no recent pain in her abdomen or flank. She has however been having a lot of urinary frequency having a Pee every hour. After her near syncope episode she states she started having some palpitations and feelings a fast beating heart. Only lasted for a minute or 2. Allergies and Home Medications Allergies Coded Allergies: hydromorphone (Verified Allergy, Mild, STRONG RASH, 06/08/16) Penicillins (Unverified Allergy, Unknown, Pt has received Cefepime & Ceftriaxone in the past w/o issue, 01/18/17) Sulfa (Sulfonamide Antibiotics) (Verified Allergy, Unknown, 06/08/16) aspirin (Verified Adverse Reaction, Mild, ASPIRIN SENSITIVE, 06/08/16) sumatriptan (Verified Adverse Reaction, Mild, PALPITATIONS, 06/08/16) Home Medications Levofloxacin 500 Mg Tablet, 500 MG PO DAILY, #10 Prescribed by: PETER ASHLEY on 01/18/172038 Tramadol HCl 50 Mg Tablet, 50 MG PO Q4H, #20 Prescribed by: PETER ASHLEY on 01/18/172039 Constitutional: No chills, No diaphoresis, dizziness, No fever, No malaise EENTM: other (headache with a history of migraines. Left frontal no aura), No ear discharge, No hearing loss, No ear pain Respiratory: No cough, No short of breath Cardiovascular: No chest pain, No edema, No palpitations, syncope (near) Gastrointestinal: No abdominal pain, No constipation, No diarrhea, nausea, No vomiting Genitourinary: No discharge, No dysuria : No Musculoskeletal: No back pain, No joint pain Skin: No pruritus, No rash Psychiatric/Neurological: Headache, Denies Numbness, Denies Paresthesia, Denies Pre-Existing Deficit, Denies Seizure Past [id number]-[id number]-[id number] Hx Patient Social History Alcohol Use: Denies Use Recreational Drug Use: No Smoking Status: Never a Smoker 2nd Hand Smoke Exposure: Yes Recent Foreign Travel: No Contact w/Someone Who Travel: No Recent Hopitalizations: No Immunizations Up To Date Tetanus Booster (TDap): Unknown PED Vaccines UTD: No Date of Pneumonia Vaccine: May 24, 2012 Date of Influenza Vaccine: Jan 25, 2016 Seasonal Allergies Seasonal Allergies: Yes Surgeries History of Surgeries: Yes (CYSTS REMOVED FROM THE OVARY) Surgeries: Abdominal, Appendectomy, Cardiac, Defibrillator, Gallbladder, Hysterectomy, Oophorectomy, Pacemaker, Tonsillectomy Respiratory History of Respiratory Disorde: Yes (COPD, wears oxygen PRN) Respiratory Disorders: Asthma, Pneumonia, Chronic Bronchitis, Sleep Apnea, COPD Currently Using CPAP: No Currently Using BIPAP: No Cardiovascular History of Cardiac Disorders: Yes Cardiac Disorders: High Cholesterol, Irregular Heartbeat Neurological History of Neurological Disord: Yes (PERIPHERAL NEUROPATHY) Neurological Disorders: Headaches /Migraines, Neuropathy 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 System Hx 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 Disorders: No Sexually Transmitted Disease: No Female 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 Disorders: Denies J[employer]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, 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 Genitourinary History of Genitourinary Disor: Yes Genitourinary Disorders: Kidney Infection, Bladder Infection, Kidney Stones, UTI-Chronic Gastrointestinal History of Gastrointestinal Di: Yes Gastrointestinal Disorders: Gastroesophageal Reflux, Diverticulosis, Hemorrhoids, C-Diff, Hiatal Hernia, Ulcer, Gall Bladder Disease, Irritable Bowel Musculoskeletal History of Musculoskeletal Dis: Yes (RESTLESS LEG SYNDROME) Musculoskeletal Disorders: Degenerate Disk Disease, Arthritis, Fibromyalgia, Chronic Back Pain Endocrine History of Endocrine Disorders: Yes Endocrine Disorders: Diabetes, Non-Insulin dep HEENT History of HEENT Disorders: Yes HEENT Disorders: Cataract Loss of Vision: Denies Hearing Impairment: Denies Cancer History of Cancer: No Psychosocial History of Psychiatric Problem: Yes Behavioral Health Disorders: Anxiety, Depression Integumentary History of Skin or Integumenta: Yes Skin/Integumentary Disorders: Pruritis Blood Transfusions History of Blood Disorders: No Adverse Reaction to a Blood Tr: No Family Medical History Significant Family History: No Pertinent Family Hx Family Medial History: Alzheimer's disease 19 FATHER Cardiovascular disease 19 FATHER 19 MOTHER Completed stroke 19 MOTHER Hypertension 19 FATHER 19 MOTHER Myocardial infarction 19 FATHER 19 MOTHER No Family History of: Diabetes mellitus Physical Exam Vital Signs Vital Sign - Last 12Hours 02/16/17 00:42 Temp 96.6 Pulse 67 Resp 22 B/P (MAP) 176/94 (121) Capillary Refill : General Appearance: WD/WN, Mild Distress HEENT: PERRL/EOMI, TMs Normal, Normal ENT Inspection, Pharynx Normal Neck: Full Range of Motion, Normal Inspection, Non Tender, Supple Cardiovascular: Regular Rate, Rhythm, No Edema, Normal Peripheral Pulses Respiratory: Chest Non Tender, Lungs Clear, Normal Breath Sounds Gastrointestinal: Normal Bowel Sounds, No Organomegaly, No Pulsatile Mass, Non Tender, Soft Extremities: Normal Capillary Refill, No Pedal Edema Neurologic/Psychiatric: Alert, Oriented x3, No Motor/Sensory Deficits, 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, account coordinator II-XII Norm as Tested Cranial Nerves: Normal Hearing, Normal Speech, PERRL Motor/Sensory: No Motor Deficit, No Sensory Deficit Skin: Normal Color, Warm/Dry Progress/Results/Core Measures Results/Orders Lab Results Laboratory Tests Test 02/16/17 00:50 02/16/17 02:15 Range/Units White Blood Count 9.4 4.3-11.0 10^3/uL Red Blood Count 4.42 4.35-5.85 10^6/uL Hemoglobin 13.5 11.5-16.0 G/DL Hematocrit 40 35-52 % Mean Corpuscular Volume 91 80-99 FL Mean Corpuscular Hemoglobin 31 25-34 PG Mean Corpuscular Hemoglobin Concent 34 32-36 G/DL Red Cell Distribution Width 12.7 10.0-14.5 % Platelet Count 241 130-400 10^3/uL Mean Platelet Volume 10.2 7.4-10.4 FL Neutrophils (%) (Auto) 60 42-75 % Lymphocytes (%) (Auto) 30 12-44 % Monocytes (%) (Auto) 7 0-12 % Eosinophils (%) (Auto) 3 0-10 % Basophils (%) (Auto) 1 0-10 % Neutrophils # (Auto) 5.6 1.8-7.8 X 10^3 Lymphocytes # (Auto) 2.8 1.0-4.0 X 10^3 Monocytes # (Auto) 0.6 0.0-1.0 X 10^3 Eosinophils # (Auto) 0.3 0.0-0.3 10^3/uL Basophils # (Auto) 0.1 0.0-0.1 10^3/uL Sodium Level 137 135-145 MMOL/L Potassium Level 3.8 3.6-5.0 MMOL/L Chloride Level 101 98-107 MMOL/L Carbon Dioxide Level 25 21-32 MMOL/L Anion Gap 11 5-14 MMOL/L Blood Urea Nitrogen 11 7-18 MG/DL Creatinine 0.80 0.60-1.30 MG/DL Estimat Glomerular Filtration Rate > 60 BUN/Creatinine Ratio 14 Glucose Level 366 H 70-105 MG/DL Calcium Level 8.9 8.5-10.1 MG/DL Total Bilirubin 0.3 0.1-1.0 MG/DL Aspartate Amino Transf (AST/SGOT) 25 5-34 U/L Alanine Aminotransferase (ALT/SGPT) 27 0-55 U/L Alkaline Phosphatase 111 40-136 U/L Troponin I < 0.30 <0.30 NG/ML Total Protein 6.3 L 6.4-8.2 GM/DL Albumin 3.5 3.2-4.5 GM/DL Urine Color YELLOW Urine Clarity CLEAR Urine pH 6 5-9 Urine Specific [place] 1.020 1.016-1.022 Urine Protein NEGATIVE NEGATIVE Urine Glucose (UA) 4+ H NEGATIVE Urine Ketones NEGATIVE NEGATIVE Urine Nitrite NEGATIVE NEGATIVE Urine Bilirubin NEGATIVE NEGATIVE Urine Urobilinogen NORMAL NORMAL MG/DL Urine Leukocyte Esterase 1+ H NEGATIVE Urine RBC (Auto) NEGATIVE NEGATIVE Urine RBC NONE /HPF Urine WBC 0-2 /HPF Urine Squamous Epithelial Cells 10-25 H /HPF Urine Crystals NONE /LPF Urine Bacteria TRACE /HPF Urine Casts NONE /LPF Urine Mucus SMALL H /LPF Urine Culture Indicated NO My Orders Orders - ISRAEL ODELL Cbc With Automated Diff (02/16/17 01:00) Comprehensive Metabolic Panel (02/16/17 01:00) Troponin I (02/16/17 01:00) Ua Culture If Indicated (02/16/17 01:00) Chest Pa/Lat (2 View) (02/16/17 01:00) Saline Lock/Iv-Start (02/16/17 01:00) Lactated Ringers (Lr 1000 Ml Iv Solution (02/16/17 01:00) Ekg Tracing (02/16/17 01:00) Continuous Ekg Monitoring (02/16/17 01:00) Ondansetron Injection (Zofran Injectio (02/16/17 01:00) Orthostatic Vital Signs (Adult (02/16/17 01:00) Post Void Residual Assessment (02/16/17 01:00) Ketorolac Injection (Toradol Injection) (02/16/17 01:30) Prochlorperazine Injection (Compazine In (02/16/17 01:30) Medications Given in ED Current Medications Medications Dose Ordered Sig/Alannah Route Start Time Stop Time Status Last Admin Dose Admin Ketorolac Tromethamine 15 mg ONCE ONCE IVP 02/16/17 01:30 02/16/17 01:31 DC 02/16/17 01:41 15 MG Lactated Ringer's 1,000 ml @ 0 mls/hr Q0M ONCE IV 02/16/17 01:00 02/16/17 01:04 DC 02/16/17 01:25 999 MLS/HR Ondansetron HCl 4 mg ONCE ONCE IVP 02/16/17 01:00 02/16/17 01:04 DC 02/16/17 01:25 4 MG Prochlorperazine Edisylate 10 mg ONCE ONCE IV 02/16/17 01:30 02/16/17 01:31 DC 02/16/17 01:41 10 MG Vital Signs/I&O Vital Sign - Last 12Hours 02/16/17 02/16/17 00:42 01:15 Temp 96.6 Pulse 67 66 65 65 Resp 22 B/P (MAP) 176/94 (121) 152/88 (109) 163/100 (121) 154/94 (114) Progress Note #1: Time: 01:14 Progress Note Orthostatics normal. Postvoid residual as incomplete urinary emptying can lead to vasovagal syncope potentially. We'll get a chest x-ray to further evaluate her lung nodules. PE is unlikely as she is not having any shortness of breath, hemoptysis, leg swelling or pain or recent history of surgery or immobilization. Her palpitations after her near syncope could be indicative of a dysrhythmia and she may need a Holter monitor outpatient. Postvoid residuals less than 40 mL's.. Echocardiogram from April 2016: 1. Normal left ventricular size and systolic function. Estimated ejection fraction 60%. Diastolic dysfunction is suggested by Doppler. 2. Left atrium is in the upper normal limits. 3. Mild mitral and tricuspid regurgitation. 4. Estimated pulmonary artery pressure of 35 mmHg Progress Note #2: Time: 03:42 Progress Note Her migraine symptoms have resolved with some Compazine, Zofran and Toradol. Her nausea is gone. She's had an exhaustive outpatient workup recently to include echocardiogram carotids, EKGs unchanged tonight. She does not have any symptoms and her vitals are stable right now. However with her history of a implanted AICD/pacemaker she is probably still intermediate risk for a coronary syncope. ECG Initial ECG Impression Date: Feb 16, 2017 Initial ECG Impression Time: 01:24 Initial ECG Rate: 64 Initial ECG Rhythm: Normal Sinus Initial ECG Intervals: Normal Initial ECG Impression: Normal, Nonspecific Changes Initial ECG Comparisson: Unchanged Comment No T-wave elevation or depression. No bradycardia Diagnostic Imaging Diagonstic Imaging: Xray Plain Films/CT/US/NM/MRI: chest (2v) Comments No acute cardiopulmonary processes noted. Reviewed: Reviewed by Me Consults Consults : Consulting Physician: Dania LANDA MD Consults Notes [id number]: Discussed case lab imaging EKG findings and vital signs. Discussed prior workup outpatient seen by Dr. Cerda. He feels the patient is okay to go home and follow up Saturday with Dr. Adame. Departure Impression Impression: Primary Impression: Syncope, near Additional Impression: Migraine headache Qualified Codes: G43.009 - Migraine without aura, not intractable, without status migrainosus Disposition: HOME, SELF-CARE Condition: Improved Departure-Patient Inst. Decision time for Depature: 03:46 Referrals: NANNETTE REVELES DO (PCP/Family) Primary Care Physician Patient Instructions: Syncope (Fainting) (DC) Add. Discharge Instructions: Make sure drinking plenty of fluids and use Tylenol or Motrin for the first signs of a headache. If you begin to have chest pain, nausea vomiting, shortness of breath should return to the ER for further evaluation. Saturday please call Dr. Adame's office at [phone] and make plans for follow-up of your near syncopal event. All discharge instructions reviewed with patient and/or family. Voiced understanding. Copy Copies To 1: NANNETTE REVELES DO Copies To 2: ULI CERDA MD FACP FACC CCDS ISRAEL ODELL Feb 16, 2017 01:06
[2017-02-16 01:10] LABS: BASOPHILS # (AUTO) 0.1 10^3/uL (0.0-0.1); BASOPHILS % (AUTO) 1 % (0-10); EOSINOPHILS # (AUTO) 0.3 10^3/uL (0.0-0.3); EOSINOPHILS % (AUTO) 3 % (0-10); LYMPHOCYTES # (AUTO) 2.8 X 10^3 (1.0-4.0); LYMPHOCYTES % (AUTO) 30 % (12-44); MEAN CORPUSCULAR HEMOGLOBIN 31 PG (25-34); MEAN CORPUSCULAR HGB CONC 34 G/DL (32-36); MEAN CORPUSCULAR VOLUME 91 FL (80-99); MEAN PLATELET VOLUME 10.2 FL (7.4-10.4); MONOCYTES # (AUTO) 0.6 X 10^3 (0.0-1.0); MONOCYTES % (AUTO) 7 % (0-12); NEUTROPHILS # (AUTO) 5.6 X 10^3 (1.8-7.8); NEUTROPHILS % (AUTO) 60 % (42-75); PLATELET COUNT 241 10^3/uL (130-400); RED BLOOD COUNT 4.42 10^6/uL (4.35-5.85); RED CELL DISTRIBUTION WIDTH 12.7 % (10.0-14.5); WHITE BLOOD COUNT 9.4 10^3/uL (4.3-11.0)
[2017-02-16 01:15] VITALS: BP_SYST 152; BP_SYST 154; BP_SYST 163; BP_DIAS 100; BP_DIAS 88; BP_DIAS 94
[2017-02-16 01:23] LABS: ALANINE AMINOTRANSFERASE 27 U/L (0-55); ALBUMIN 3.5 GM/DL (3.2-4.5); ANION GAP 11 MMOL/L (5-14); ASPARTATE AMINO TRANSFERASE 25 U/L (5-34); BILIRUBIN,TOTAL 0.3 MG/DL (0.1-1.0); BLOOD UREA NITROGEN 11 MG/DL (7-18); BUN/CREATININE RATIO 14; CALCIUM 8.9 MG/DL (8.5-10.1); CARBON DIOXIDE 25 MMOL/L (21-32); CHLORIDE 101 MMOL/L (98-107); GFR ESTIMATED > 60; GLUCOSE 366 MG/DL (70-105); POTASSIUM 3.8 MMOL/L (3.6-5.0); SODIUM 137 MMOL/L (135-145); TOTAL PROTEIN 6.3 GM/DL (6.4-8.2)
[2017-02-16 01:29] LABS: TROPONIN I < 0.30 NG/ML (<0.30)
[2017-02-16] MEDS ORDERED: PROCHLORPERAZINE 10 MG/2ML INJ (COMPAZINE) IV ONE (01:30)
[2017-02-16] MEDS ORDERED: KETOROLAC 30 MG/ML VIAL IVP ONE (01:30)
[2017-02-16 02:24] LABS: BILIRUBIN,URINE NEGATIVE (NEGATIVE); KETONES,URINE NEGATIVE (NEGATIVE); LEUKOCYTE ESTERASE ,URINE 1+ (NEGATIVE); NITRITE,URINE NEGATIVE (NEGATIVE); PH,URINE 6 (5-9); PROTEIN,URINE NEGATIVE (NEGATIVE); UROBILINOGEN,URINE NORMAL (NORMAL)
[2017-02-16 02:31] LABS: WBC,URINE 0-2 /HPF
[2017-02-16 03:53] VITALS: BP 138/75
--- NOTE | 2017-02-16 07:06 | Diagnostic Imaging Report ---
INDICATION: Dizziness. TECHNIQUE: 2-view chest 1:31 AM. CORRELATION STUDY: 01/18/2017. FINDINGS: Left-sided pacemaker stable. Heart size and mediastinum are mildly prominent but unchanged. Vasculature within normal limits. The lungs are clear with no consolidating infiltrate. There is no significant pleural effusion or pneumothorax. The previously identified small pulmonary nodules on CT chest imaging are not appreciated on radiograph. Prior kyphoplasty changes. IMPRESSION: Generally stable chest. Borderline heart size without overt failure. Dictated by: Dictated on workstation # [id number]
== END 2017-02-16 03:53 | disposition home or self-care (01) ==
LOC: EDUNIT# 00:35 → ER 00:37
DX: R55 Syncope and collapse (principal); G43.909 Migraine, unspecified, not intractable, without status migrainosus; F41.9 Anxiety disorder, unspecified; F32.9 Major depressive disorder, single episode, unspecified; E11.9 Type 2 diabetes mellitus without complications; M47.9 Spondylosis, unspecified; G25.81 Restless legs syndrome
CPT/HCPCS: 36415; 71020; 80053; 81000; 84484; 85025

== ENCOUNTER 2017-03-03 13:30 | Emergency (ER) | payer MEDICARE ==
[~2017-03-03] VITALS: Ht 162.6 cm; Wt 97.1 kg
[2017-03-03] MEDS ORDERED: TRAM50TA2 (14:53)
[2017-03-03] MEDS ORDERED: BUSP5TAB59 (14:53)
[2017-03-03] MEDS ORDERED: GLIM4TAB (14:53)
[2017-03-03] MEDS ORDERED: GLIM2TAB (14:53)
[2017-03-03] MEDS ORDERED: LORA0.5T (14:53)
[2017-03-03] MEDS ORDERED: OMEP40CA36 (14:53)
[2017-03-03] MEDS ORDERED: PROP60TA17 (14:53)
[2017-03-03] MEDS ORDERED: AMIT50TA3 (14:53)
--- NOTE | 2017-03-03 14:53 | ED General ---
General Chief Complaint: Dizziness/Syncope Stated Complaint: DIZZINESS/MIGRAINE Nursing Triage Note: AMB TO ROOM REPORTS FOR SEVERAL WEEKS HAS BEEN DIZZY OFF AND ON TODAY ONSET AT 7A WITH HEADACHE. Nursing Sepsis Screen: No Definite Risk Source of Information: Patient Exam Limitations: No Limitations History of Present Illness Time Seen by Provider: 14:51 Initial Comments To ER with reports of intermittent dizziness for several weeks. Today she had a recurrence of her typical migraine headache. Timing/Duration: 1-2 Days Severity: Moderate Allergies and Home Medications Allergies Coded Allergies: hydromorphone (Verified Allergy, Mild, STRONG RASH, 06/08/16) Penicillins (Unverified Allergy, Unknown, Pt has received Cefepime & Ceftriaxone in the past w/o issue, 01/18/17) Sulfa (Sulfonamide Antibiotics) (Verified Allergy, Unknown, 06/08/16) aspirin (Verified Adverse Reaction, Mild, ASPIRIN SENSITIVE, 06/08/16) sumatriptan (Verified Adverse Reaction, Mild, PALPITATIONS, 06/08/16) Home Medications Levofloxacin 500 Mg Tablet, 500 MG PO DAILY, #10 Prescribed by: PETER ASHLEY on 01/18/172038 Tramadol HCl 50 Mg Tablet, 50 MG PO Q4H, #20 Prescribed by: PETER ASHLEY on 01/18/172039 Constitutional: see HPI EENTM: see HPI Respiratory: no symptoms reported Cardiovascular: no symptoms reported Genitourinary: no symptoms reported Musculoskeletal: no symptoms reported Skin: no symptoms reported Psychiatric/Neurological: No Symptoms Reported Hematologic/Lymphatic: No Symptoms Reported Immunological/Allergic: no symptoms reported Past Bzfmype-Fbmwox-Xgsmdd Hx Patient Social History Alcohol Use: Denies Use Recreational Drug Use: No 2nd Hand Smoke Exposure: Yes Recent Foreign Travel: No Contact w/Someone Who Travel: No Recent Infectious Disease Expo: No Recent Hopitalizations: No Immunizations Up To Date Tetanus Booster (TDap): Unknown PED Vaccines UTD: No Date of Pneumonia Vaccine: May 24, 2012 Date of Influenza Vaccine: Jan 25, 2016 Seasonal Allergies Seasonal Allergies: Yes Surgeries History of Surgeries: Yes (CYSTS REMOVED FROM THE OVARY) Surgeries: Abdominal, Appendectomy, Cardiac, Defibrillator, Gallbladder, Hysterectomy, Oophorectomy, Pacemaker, Tonsillectomy Respiratory History of Respiratory Disorde: Yes (COPD, wears oxygen PRN) Respiratory Disorders: Asthma, Pneumonia, Chronic Bronchitis, Sleep Apnea, COPD Currently Using CPAP: No Currently Using BIPAP: No Cardiovascular History of Cardiac Disorders: Yes Cardiac Disorders: High Cholesterol, Irregular Heartbeat Neurological History of Neurological Disord: Yes (PERIPHERAL NEUROPATHY) Neurological Disorders: Headaches /Migraines, Neuropathy 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 System Hx 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 Disorders: No Sexually Transmitted Disease: No Female 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 Disorders: Denies DRY BOSS History: Hysterectomy, Menopausal Genitourinary History of Genitourinary Disor: Yes Genitourinary Disorders: Kidney Infection, Bladder Infection, Kidney Stones, UTI-Chronic Gastrointestinal History of Gastrointestinal Di: Yes Gastrointestinal Disorders: Gastroesophageal Reflux, Diverticulosis, Hemorrhoids, C-Diff, Hiatal Hernia, Ulcer, Gall Bladder Disease, Irritable Bowel Musculoskeletal History of Musculoskeletal Dis: Yes (RESTLESS LEG SYNDROME) Musculoskeletal Disorders: Degenerate Disk Disease, Arthritis, Fibromyalgia, Chronic Back Pain Endocrine History of Endocrine Disorders: Yes Endocrine Disorders: Diabetes, Non-Insulin dep HEENT History of HEENT Disorders: Yes HEENT Disorders: Cataract Loss of Vision: Denies Hearing Impairment: Denies Cancer History of Cancer: No Psychosocial History of Psychiatric Problem: Yes Behavioral Health Disorders: Anxiety, Depression Integumentary History of Skin or Integumenta: Yes Skin/Integumentary Disorders: Pruritis Blood Transfusions History of Blood Disorders: No Adverse Reaction to a Blood Tr: No Family Medical History Significant Family History: No Pertinent Family Hx Family Medial History: Alzheimer's disease 19 FATHER Cardiovascular disease 19 FATHER 19 MOTHER Completed stroke 19 MOTHER Hypertension 19 FATHER 19 MOTHER Myocardial infarction 19 FATHER 19 MOTHER No Family History of: Diabetes mellitus Physical Exam Vital Signs Vital Sign - Last 12Hours 03/03/17 14:36 Temp 98.6 Pulse 78 Resp 18 B/P (MAP) 149/91 (110) Pulse Ox 94 O2 Delivery Room Air Capillary Refill : Less Than 3 Seconds General Appearance: No Apparent Distress, WD/WN Eyes: Bilateral Eye Normal Inspection, Bilateral Eye PERRL, Bilateral Eye EOMI HEENT: PERRL/EOMI, TMs Normal Neck: Full Range of Motion, Normal Inspection Respiratory: Normal Breath Sounds, No Accessory Muscle Use, No Respiratory Distress Gastrointestinal: Non Tender, Soft Extremity: Normal Capillary Refill, Normal Inspection Neurologic/Psychiatric: Alert, Oriented x3, No Motor/Sensory Deficits Skin: Normal Color, Warm/Dry Progress/Results/Core Measures Suspected Sepsis Recent Fever Within 48 Hours: No Infection Criteria Present: None New/Unexplained Altered Menta: No Sepsis Screen: No Definite Risk Sepsis Diagnosis: SIRS Temperature:98.6 Pulse: 78 Respiratory Rate: 18 Blood Pressure 149 /91 Mean: 110 Results/Orders My Orders Orders - EARNESTINE CAMARGO APRN Ketorolac Injection (Toradol Injection) (03/03/17 15:00) Prochlorperazine Injection (Compazine In (03/03/17 15:00) Diphenhydramine Injection (Benadryl Inje (03/03/17 15:00) Vital Signs/I&O Vital Sign - Last 12Hours 03/03/17 14:36 Temp 98.6 Pulse 78 Resp 18 B/P (MAP) 149/91 (110) Pulse Ox 94 O2 Delivery Room Air Capillary Refill : Less Than 3 Seconds Blood Pressure Mean: 110 Departure Impression Impression: Primary Impression: Migraine headache Disposition: 01 HOME, SELF-CARE Condition: Stable Departure-Patient Inst. Decision time for Depature: 14:52 Referrals: NANNETTE REVELES DO (PCP/Family) Primary Care Physician Patient Instructions: Headache, Adult Add. Discharge Instructions: All discharge instructions reviewed with patient and/or family. Voiced understanding. EARNESTINE CAMARGO APRN Mar 03, 2017 14:53
[2017-03-03] MEDS ORDERED: diphenhydrAMINE 50 MG/ML INJ (BENADRYL) IM ONE (15:00)
[2017-03-03] MEDS ORDERED: PROCHLORPERAZINE 10 MG/2ML INJ (COMPAZINE) IM ONE (15:00)
[2017-03-03] MEDS ORDERED: KETOROLAC 60 MG/2 ML VIAL IM ONE (15:00)
[2017-03-03 15:34] VITALS: BP 153/70
== END 2017-03-03 15:34 | disposition home or self-care (01) ==
LOC: EDUNIT# 13:30 → ER 13:32
DX: G43.909 Migraine, unspecified, not intractable, without status migrainosus (principal); J44.9 Chronic obstructive pulmonary disease, unspecified; G47.30 Sleep apnea, unspecified; F41.9 Anxiety disorder, unspecified; F32.9 Major depressive disorder, single episode, unspecified; E11.40 Type 2 diabetes mellitus with diabetic neuropathy, unspecified; E78.00 Pure hypercholesterolemia, unspecified; K21.9 Gastro-esophageal reflux disease without esophagitis; Z87.440 Personal history of urinary (tract) infections; Z87.19 Personal history of other diseases of the digestive system; Z82.49 Family history of ischemic heart disease and other diseases of the circulatory system; Z77.22 Contact with and (suspected) exposure to environmental tobacco smoke (acute) (chronic); Z90.49 Acquired absence of other specified parts of digestive tract; Z95.810 Presence of automatic (implantable) cardiac defibrillator; Z90.710 Acquired absence of both cervix and uterus; Z90.89 Acquired absence of other organs
CPT/HCPCS: 99284

== ENCOUNTER 2017-03-11 14:18 | Emergency (ER) | payer MEDICARE ==
[~2017-03-11] VITALS: Ht 154.9 cm; Wt 95.7 kg
[~2017-03-11 14:18] MED LIST changes: +AMIT50TA3; +BUSP5TAB59; +GLIM2TAB; +GLIM4TAB; +LORA0.5T; +OMEP40CA36; +PROP60TA17; +TRAM50TA2
[2017-03-11] MEDS ORDERED: RT-ALBUTEROL SULF 2.5 MG/3 ML PRE-MIX VIAL INH STA (14:46)
--- NOTE | 2017-03-11 14:54 | ED Cough/URI ---
General Chief Complaint: Cough/Cold/Flu Symptoms Stated Complaint: COUGH,SOB Nursing Triage Note: AMB TO ROOM C/O COUGH AND CONGESTION FOR SEVERAL DAYS Source: patient Exam Limitations: no limitations History of Present Illness Time seen by provider: 14:39 Initial Comments Patient presents to ER by private conveyance with chief complaint that 3 days ago she started to have nonproductive cough, chills, body ache, subjective fever and she's been using 2 tablets of Tylenol daily which worked for a short while. Her last dose of Tylenol this morning. She has a history of COPD but never smoked. Her was sick last week with the same thing and is still sick. She is no longer able to tolerate using the [id number] medicines she is on. She is not having nausea, vomiting, diarrhea, rash, headache. Patient is using her albuterol by nebulizer two to 3 times a day at home for last couple days. Her last dose was this morning. Allergies and Home Medications Allergies Coded Allergies: hydromorphone (Verified Allergy, Mild, STRONG RASH, 06/08/16) Penicillins (Unverified Allergy, Unknown, Pt has received Cefepime & Ceftriaxone in the past w/o issue, 01/18/17) Sulfa (Sulfonamide Antibiotics) (Verified Allergy, Unknown, 06/08/16) aspirin (Verified Adverse Reaction, Mild, ASPIRIN SENSITIVE, 06/08/16) sumatriptan (Verified Adverse Reaction, Mild, PALPITATIONS, 06/08/16) Home Medications Amitriptyline HCl 50 Mg Tablet, (Reported) Buspirone HCl 5 Mg Tablet, (Reported) Glimepiride 4 Mg Tablet, (Reported) Glimepiride 2 Mg Tablet, (Reported) Lorazepam 0.5 Mg Tablet, (Reported) Omeprazole 40 Mg Capsule., (Reported) Propranolol HCl 60 Mg Tablet, (Reported) Tramadol HCl 50 Mg Tablet, 50 MG PO Q4H, #20 Prescribed by: PETER ASHLEY on 01/18/172039 Tramadol HCl 50 Mg Tablet, (Reported) Constitutional: chills, fever, malaise (body aches) EENTM: nose congestion, No ear discharge, No ear pain, No eye pain Respiratory: cough, No phlegm, short of breath, wheezing Cardiovascular: No Hx of Intervention, No syncope Gastrointestinal: No abdominal pain, No nausea, No vomiting Genitourinary: No discharge, No dysuria Musculoskeletal: No back pain, No joint pain Past Qoasycd-Isdqsx-Iytefu Hx Patient Social History Alcohol Use: Denies Use Recreational Drug Use: No Smoking Status: Never a Smoker 2nd Hand Smoke Exposure: Yes Recent Foreign Travel: No Contact w/Someone Who Travel: No Recent Infectious Disease Expo: No Recent Hopitalizations: No Immunizations Up To Date Tetanus Booster (TDap): Unknown PED Vaccines UTD: No Date of Pneumonia Vaccine: May 24, 2012 Date of Influenza Vaccine: Jan 25, 2016 Seasonal Allergies Seasonal Allergies: Yes Surgeries History of Surgeries: Yes (CYSTS REMOVED FROM THE OVARY) Surgeries: Abdominal, Appendectomy, Cardiac, Defibrillator, Gallbladder, Hysterectomy, Oophorectomy, Pacemaker, Tonsillectomy Respiratory History of Respiratory Disorde: Yes (COPD, wears oxygen PRN) Respiratory Disorders: Asthma, Pneumonia, Chronic Bronchitis, Sleep Apnea, COPD Currently Using CPAP: No Currently Using BIPAP: No Cardiovascular History of Cardiac Disorders: Yes Cardiac Disorders: High Cholesterol, Irregular Heartbeat Neurological History of Neurological Disord: Yes (PERIPHERAL NEUROPATHY) Neurological Disorders: Headaches /Migraines, Neuropathy 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 System Hx 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 Disorders: No Sexually Transmitted Disease: No Female 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 Disorders: Denies 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, Menopausal Genitourinary History of Genitourinary Disor: Yes Genitourinary Disorders: Kidney Infection, Bladder Infection, Kidney Stones, UTI-Chronic Gastrointestinal History of Gastrointestinal Di: Yes Gastrointestinal Disorders: Gastroesophageal Reflux, Diverticulosis, Hemorrhoids, C-Diff, Hiatal Hernia, Ulcer, Gall Bladder Disease, Irritable Bowel Musculoskeletal History of Musculoskeletal Dis: Yes (RESTLESS LEG SYNDROME) Musculoskeletal Disorders: Degenerate Disk Disease, Arthritis, Fibromyalgia, Chronic Back Pain Endocrine History of Endocrine Disorders: Yes Endocrine Disorders: Diabetes, Non-Insulin dep HEENT History of HEENT Disorders: Yes HEENT Disorders: Cataract Loss of Vision: Denies Hearing Impairment: Denies Cancer History of Cancer: No Psychosocial History of Psychiatric Problem: Yes Behavioral Health Disorders: Anxiety, Depression Integumentary History of Skin or Integumenta: Yes Skin/Integumentary Disorders: Pruritis Blood Transfusions History of Blood Disorders: No Adverse Reaction to a Blood Tr: No Family Medical History Significant Family History: No Pertinent Family Hx Family Medial History: Alzheimer's disease 19 FATHER Cardiovascular disease 19 FATHER 19 MOTHER Completed stroke 19 MOTHER Hypertension 19 FATHER 19 MOTHER Myocardial infarction 19 FATHER 19 MOTHER No Family History of: Diabetes mellitus Physical Exam Vital Signs Vital Sign - Last 12Hours 03/11/17 14:25 Temp 98.9 Pulse 86 Resp 18 B/P (MAP) 17/82 (61) Pulse Ox 98 O2 Delivery Room Air Capillary Refill : Less Than 3 Seconds General Appearance: WD/WN, moderate distress Eyes: Bilateral Eye Normal Inspection, Bilateral Eye PERRL, Bilateral Eye EOMI HEENT: PERRL/EOMI, TMs normal, pharynx normal, other (nasal congestion without sinus tenderness) Neck: non-tender, full range of motion, supple, normal inspection Respiratory: chest non-tender, respiratory distress (mild), decreased breath sounds, No accessory muscle use, wheezing Cardiovascular: normal peripheral pulses, regular rate, rhythm, no edema Gastrointestinal: normal bowel sounds, non tender, soft Neurologic/Psychiatric: alert, normal mood/affect, oriented x 3 Skin: normal color, warm/dry Progress/Results/Core Measures Suspected Sepsis Recent Fever Within 48 Hours: No Infection Criteria Present: None New/Unexplained Altered Menta: No Sepsis Screen: No Definite Risk Sepsis Diagnosis: SIRS Temperature:98.9 Pulse: 86 Respiratory Rate: 18 Laboratory Tests 03/11/17 14:55: White Blood Count 11.8H Blood Pressure 17 /82 Mean: 61 Laboratory Tests 03/11/17 14:55: Creatinine 0.78, Platelet Count 273, Total Bilirubin 0.7 Results/Orders Lab Results Laboratory Tests Test 03/11/17 14:55 03/11/17 15:17 Range/Units White Blood Count 11.8 H 4.3-11.0 10^3/uL Red Blood Count 4.71 4.35-5.85 10^6/uL Hemoglobin 14.6 11.5-16.0 G/DL Hematocrit 42 35-52 % Mean Corpuscular Volume 89 80-99 FL Mean Corpuscular Hemoglobin 31 25-34 PG Mean Corpuscular Hemoglobin Concent 35 32-36 G/DL Red Cell Distribution Width 12.5 10.0-14.5 % Platelet Count 273 130-400 10^3/uL Mean Platelet Volume 9.4 7.4-10.4 FL Neutrophils (%) (Auto) 73 42-75 % Lymphocytes (%) (Auto) 18 12-44 % Monocytes (%) (Auto) 6 0-12 % Eosinophils (%) (Auto) 2 0-10 % Basophils (%) (Auto) 0 0-10 % Neutrophils # (Auto) 8.6 H 1.8-7.8 X 10^3 Lymphocytes # (Auto) 2.1 1.0-4.0 X 10^3 Monocytes # (Auto) 0.7 0.0-1.0 X 10^3 Eosinophils # (Auto) 0.3 0.0-0.3 10^3/uL Basophils # (Auto) 0.1 0.0-0.1 10^3/uL Sodium Level 138 135-145 MMOL/L Potassium Level 4.0 3.6-5.0 MMOL/L Chloride Level 99 98-107 MMOL/L Carbon Dioxide Level 28 21-32 MMOL/L Anion Gap 11 5-14 MMOL/L Blood Urea Nitrogen 9 7-18 MG/DL Creatinine 0.78 0.60-1.30 MG/DL Estimat Glomerular Filtration Rate > 60 BUN/Creatinine Ratio 12 Glucose Level 149 H 70-105 MG/DL Calcium Level 9.4 8.5-10.1 MG/DL Total Bilirubin 0.7 0.1-1.0 MG/DL Aspartate Amino Transf (AST/SGOT) 34 5-34 U/L Alanine Aminotransferase (ALT/SGPT) 29 0-55 U/L Alkaline Phosphatase 100 40-136 U/L C-Reactive Protein High Sensitivity 4.07 H 0.00-0.50 MG/DL Total Protein 7.1 6.4-8.2 GM/DL Albumin 3.7 3.2-4.5 GM/DL Blood Gas Puncture Site R RAD Blood Gas Patient Temperature 98.2 Arterial Blood pH 7.41 7.37-7.43 Arterial Blood Partial Pressure CO2 43 35-45 MMHG Arterial Blood Partial Pressure O2 66 L 79-93 MMHG Arterial Blood HCO3 27 23-27 MMOL/L Arterial Blood Total CO2 28.2 21.0-31.0 MMOL/L Arterial Blood Oxygen Saturation 96 94-100 % Arterial Blood Base Excess 2.6 H -2.5-2.5 MMOL/L Manjit Test YES-POS Blood Gas Ventilator Setting NO Blood Gas Inspired Oxygen RA Micro Results Microbiology 03/11/17 Influenza Types A,B Antigen (YOLIE) - Final, Complete My Orders Orders - ISRAEL ODELL Cbc With Automated Diff (03/11/17 14:46) Comprehensive Metabolic Panel (03/11/17 14:46) Hs C Reactive Protein (03/11/17 14:46) Influenza A And B Antigens (03/11/17 14:46) Chest Pa/Lat (2 View) (03/11/17 14:46) Albuterol Pre-Mix Nebs (Rt) (Proventil (03/11/17 14:46) Albuterol/Ipra Inhalation Soln (Duoneb I (03/11/17 15:00) Ketorolac Injection (Toradol Injection) (03/11/17 15:00) Svn Sm Volume Nebulizer Rt-Rfs (03/11/17 14:46) Arterial Blood Gas (03/11/17 15:17) Medications Given in ED Current Medications Medications Dose Ordered Sig/Alannah Route Start Time Stop Time Status Last Admin Dose Admin Albuterol/ Ipratropium 3 ml ONCE ONCE INH 03/11/17 15:00 03/11/17 15:01 DC 03/11/17 15:22 3 ML Ketorolac Tromethamine 15 mg ONCE ONCE IVP 03/11/17 15:00 03/11/17 15:01 DC 03/11/17 15:00 15 MG Vital Signs/I&O Vital Sign - Last 12Hours 03/11/17 03/11/17 14:25 15:20 Temp 98.9 Pulse 86 Resp 18 B/P (MAP) 17/82 (61) Pulse Ox 98 94 O2 Delivery Room Air Room Air Capillary Refill : Less Than 3 Seconds Blood Pressure Mean: 61 Progress Note #1: Time: 14:53 Progress Note Possible influenza the patient with COPD and had a bit of wheezing despite using her own home albuterol. However has been close to 6 hours since her last albuterol dose so we will give her a treatment of albuterol and DuoNeb and if she is doing better she may be eligible to go home and try outpatient therapy again. We'll give her ketorolac to treat her body aches and if that helps we'll give her better instructions on how to take NSAIDs and Tylenol. Progress Note #2: Time: 16:19 Progress Note Breath sounds on repeat examination are clear. Patient still has a dry nonproductive cough. We have discussed doing outpatient management she would like to try this Depo-Medrol option with some cough medicine and routine breathing treatments and follow-up with her doctor this week. The root cause of her COPD exacerbation is likely viral and antibiotics will probably not benefit her. Diagnostic Imaging Diagonstic Imaging: Xray Plain Films/CT/US/NM/MRI: chest (2v) Comments [facility] [place], [place] NAME: BRAYDON [facility]BOLEDA [facility] REC#: [id number] PT STATUS: REG ER : 1945 PHYSICIAN: ISRAEL ODELL MD ADMIT DATE: 03/11/17/ER Draft Date of Exam:03/11/17 CHEST PA/LAT (2 VIEW) INDICATION: Cough and wheezing. TECHNIQUE: PA and lateral films of the chest were obtained at 4:12 PM. COMPARISON: 02/16/2017. FINDINGS: The heart is mildly enlarged. The aorta is tortuous. The lungs are clear. There is no pneumothorax or pleural fluid. The pacemaker is unchanged. IMPRESSION: Unchanged pacemaker device. No focal infiltrate, pneumothorax, or pleural fluid. Evidence of prior kyphoplasty at the thoracolumbar junction is again noted. Dictated on workstation # [id number] Dict: 03/11/17 1557 Trans: 03/11/17 1603 [id number] Interpreted by: SHEREEN KELLEY MD Electronically signed by: Reviewed: Reviewed by Me Departure Impression Impression: Primary Impression: COPD exacerbation Additional Impressions: Upper respiratory infection Qualified Codes: J06.9 - Acute upper respiratory infection, unspecified Bronchitis Disposition: HOME, SELF-CARE Condition: Improved Departure-Patient Inst. Decision time for Depature: 16:20 Referrals: NANNETTE REVELES DO (PCP/Family) Primary Care Physician Patient Instructions: Exacerbation of COPD (DC) Add. Discharge Instructions: Drink plenty of fluids. Use your breathing treatment every 6 hours or 4 times a day. If you're having wheezing or shortness of breath in between then you can take another breathing treatment every 4 hours. If this is still not solving your breathing or wheezing you may return to the ER or urgent care for further evaluation. If you have fevers or bodyaches you should take 1000 mg of Tylenol and/or an NSAID such as ibuprofen 800 mg every 8 hours or Naprosyn/Aleve 2 capsules twice a day as needed. Vapor rubs and humidifiers will also be very helpful with your congestion. If your secretions are thick you should drink more fluids. If you have a cough that you cannot get rid of you may use the Tessalon Perles 1 capsule every 6 hours as needed. Given a shot of steroids in the ER that should start working in about 12-24 hrs. to improve your breathing. All discharge instructions reviewed with patient and/or family. Voiced understanding. Scripts Benzonatate (Tessalon Perle) 100 Mg Capsule 100 MG PO Q6H Y for COUGH, #30 CAP 0 Refills Prov: ISRAEL ODELL 03/11/17 Copy Copies To 1: NANNETTE REVELES DO ISRAEL ODELL Mar 11, 2017 14:54
[2017-03-11] MEDS ORDERED: RT-ALBUTEROL/IPRATROPIUM 3 ML (DUONEB) VIAL INH ONE (15:00)
[2017-03-11] MEDS ORDERED: KETOROLAC 30 MG/ML VIAL IVP ONE (15:00)
[2017-03-11 15:03] LABS: BASOPHILS # (AUTO) 0.1 10^3/uL (0.0-0.1); BASOPHILS % (AUTO) 0 % (0-10); EOSINOPHILS # (AUTO) 0.3 10^3/uL (0.0-0.3); EOSINOPHILS % (AUTO) 2 % (0-10); HEMATOCRIT 42 % (35-52); HEMOGLOBIN 14.6 G/DL (11.5-16.0); LYMPHOCYTES # (AUTO) 2.1 X 10^3 (1.0-4.0); LYMPHOCYTES % (AUTO) 18 % (12-44); MEAN CORPUSCULAR HEMOGLOBIN 31 PG (25-34); MEAN CORPUSCULAR HGB CONC 35 G/DL (32-36); MEAN CORPUSCULAR VOLUME 89 FL (80-99); MEAN PLATELET VOLUME 9.4 FL (7.4-10.4); MONOCYTES # (AUTO) 0.7 X 10^3 (0.0-1.0); MONOCYTES % (AUTO) 6 % (0-12); NEUTROPHILS # (AUTO) 8.6 X 10^3 (1.8-7.8); NEUTROPHILS % (AUTO) 73 % (42-75); PLATELET COUNT 273 10^3/uL (130-400); RED BLOOD COUNT 4.71 10^6/uL (4.35-5.85); RED CELL DISTRIBUTION WIDTH 12.5 % (10.0-14.5); WHITE BLOOD COUNT 11.8 10^3/uL (4.3-11.0)
[2017-03-11 15:32] LABS: ALANINE AMINOTRANSFERASE 29 U/L (0-55); ALBUMIN 3.7 GM/DL (3.2-4.5); ALKALINE PHOSPHATASE 100 U/L (40-136); BILIRUBIN,TOTAL 0.7 MG/DL (0.1-1.0); BUN/CREATININE RATIO 12; CALCIUM 9.4 MG/DL (8.5-10.1); CARBON DIOXIDE 28 MMOL/L (21-32); CHLORIDE 99 MMOL/L (98-107); CREATININE SERUM 0.78 MG/DL (0.60-1.30); GFR ESTIMATED > 60; GLUCOSE 149 MG/DL (70-105); SODIUM 138 MMOL/L (135-145); TOTAL PROTEIN 7.1 GM/DL (6.4-8.2)
[2017-03-11 15:34] LABS: ABG BASE EXCESS 2.6 MMOL/L (-2.5-2.5); ABG OXYGEN SATURATION 96 % (94-100); ABG PCO2 43 MMHG (35-45); ABG PH 7.41 (7.37-7.43); ABG PO2 66 MMHG (79-93); ABG TCO2 28.2 MMOL/L (21.0-31.0)
[2017-03-11 15:38] LABS: ALLENS TEST YES-POS; INSPIRED O2 RA; VENTILATOR NO
[2017-03-11 15:39] LABS: PATIENT TEMP 98.2
--- NOTE | 2017-03-11 16:03 | Diagnostic Imaging Report ---
INDICATION: Cough and wheezing. TECHNIQUE: PA and lateral films of the chest were obtained at 4:12 PM. COMPARISON: 02/16/2017. FINDINGS: The heart is mildly enlarged. The aorta is tortuous. The lungs are clear. There is no pneumothorax or pleural fluid. The pacemaker is unchanged. IMPRESSION: Unchanged pacemaker device. No focal infiltrate, pneumothorax, or pleural fluid. Evidence of prior kyphoplasty at the thoracolumbar junction is again noted. Dictated by: Dictated on workstation # [id number]
[2017-03-11] MEDS ORDERED: BENZ-13 PO (16:23)
[2017-03-11] MEDS ORDERED: DEXAMETHASONE 10 MG/ML (DECADRON) 1 ML VIAL IM ONE (16:30)
[2017-03-11 16:37] VITALS: BP 104/52
== END 2017-03-11 16:37 | disposition home or self-care (01) ==
LOC: EDUNIT# 14:18 → ER 14:20
DX: J44.1 Chronic obstructive pulmonary disease with (acute) exacerbation (principal); G47.30 Sleep apnea, unspecified; E78.00 Pure hypercholesterolemia, unspecified; G43.909 Migraine, unspecified, not intractable, without status migrainosus; E11.40 Type 2 diabetes mellitus with diabetic neuropathy, unspecified; F41.9 Anxiety disorder, unspecified; F32.9 Major depressive disorder, single episode, unspecified; K21.9 Gastro-esophageal reflux disease without esophagitis; Z87.19 Personal history of other diseases of the digestive system; Z79.84 Long term (current) use of oral hypoglycemic drugs; Z77.22 Contact with and (suspected) exposure to environmental tobacco smoke (acute) (chronic); Z82.49 Family history of ischemic heart disease and other diseases of the circulatory system; Z87.448 Personal history of other diseases of urinary system; Z87.01 Personal history of pneumonia (recurrent); Z90.49 Acquired absence of other specified parts of digestive tract; Z90.710 Acquired absence of both cervix and uterus; Z95.0 Presence of cardiac pacemaker; Z87.440 Personal history of urinary (tract) infections; Z87.442 Personal history of urinary calculi; Z90.89 Acquired absence of other organs
CPT/HCPCS: 36415; 71046; 80053; 82805; 85025; 86141; 87804; 94640; 96372; 96374; 99284

== ENCOUNTER 2017-03-29 06:53 | Emergency (ER) | payer MEDICARE ==
[~2017-03-29] VITALS: Ht 160 cm; Wt 99.8 kg
--- NOTE | 2017-03-29 07:29 | ED GI ---
General Chief Complaint: Abdominal/GI Problems Stated Complaint: RECTAL BLEEDING Nursing Triage Note: c/o bloody stools x 2 this morning. Hx of IBS and diverticulosis. Denies abd pain. Sepsis Screen: No Definite Risk (BEN DICKEY MEDICAL STUDENT) History of Present Illness Date Seen by Provider: Mar 29, 2017 Time Seen by Provider: 07:25 Initial Comments Pt is a 71 yo female with a pertinent PMH of IBS, diverticulosis, hemorrhoids, gastric ulcer and recurrent UTI's who presents to the ED via PV c/o bloody stools onset this morning. Pt states with her hx of IBS she normally has small caliber stools, but for the past two days she has had loose, watery, "mealy" stools and this morning she had two bowel movements with approx 1/2 cup of blood in the bowl. Recent colonoscopy within the past year showed hemorrhoids and diverticulosis, she states the hemorrhoids were not banded at that time. She occasionally has scant blood on tp but this is new for her today. Pt was recently treated for a viral illness with prednisone and clindamycin that she finished a week ago and wonders if her abx have caused c-diff. Pt is also c/o suprapubic abd pain but denies any dysuria, fevers, chills, sob, cp, dizziness, or any other associated sx. (BEN DICKEY MEDICAL STUDENT) Allergies and Home Medications Allergies Coded Allergies: hydromorphone (Verified Allergy, Mild, STRONG RASH, 06/08/16) Penicillins (Unverified Allergy, Unknown, Pt has received Cefepime & Ceftriaxone in the past w/o issue, 01/18/17) Sulfa (Sulfonamide Antibiotics) (Verified Allergy, Unknown, 06/08/16) aspirin (Verified Adverse Reaction, Mild, ASPIRIN SENSITIVE, 06/08/16) sumatriptan (Verified Adverse Reaction, Mild, PALPITATIONS, 06/08/16) Home Medications Amitriptyline HCl 50 Mg Tablet, (Reported) Benzonatate 100 Mg Capsule, 100 MG PO Q6H PRN for COUGH, #30 Ref 0 Prescribed by: ISRAEL ODELL on 03/11/17 1623 Buspirone HCl 5 Mg Tablet, (Reported) Ciprofloxacin HCl 500 Mg Tablet, 500 MG PO BID, #10 Prescribed by: BRADY BROWN on 03/29/17 0959 Glimepiride 4 Mg Tablet, (Reported) Glimepiride 2 Mg Tablet, (Reported) L.acidoph & Paracasei,B.lactis 1 Each Capsule, 1 EACH PO TIDWM, #30 Prescribed by: BRADY BROWN on 03/29/17 0959 Lorazepam 0.5 Mg Tablet, (Reported) Metronidazole 500 Mg Tablet, 500 MG PO TID, #30 Prescribed by: BRADY BROWN on 03/29/17 0959 Omeprazole 40 Mg Capsule., (Reported) Propranolol HCl 60 Mg Tablet, (Reported) Tramadol HCl 50 Mg Tablet, 50 MG PO Q4H, #20 Prescribed by: PETER ASHLEY on 01/18/172039 Tramadol HCl 50 Mg Tablet, (Reported) Review of Systems Constitutional: no symptoms reported, No chills, No dizziness, No fever Respiratory: No Symptoms Reported, Denies Orthopnea, Denies Shortness of Air Cardiovascular: No Symptoms Reported, Denies Chest Pain, Denies Irregular Heart Rate, Denies Lightheadedness, Denies Syncope Gastrointestinal: Abdominal Pain (suprapubic), Denies Nausea, Rectal Bleeding, Denies Vomiting Genitourinary: Denies Burning, Denies Discharge, Flank Pain, Denies Hematuria ( BEN DICKEY MEDICAL STUDENT) EENTM: No Symptoms Reported Musculoskeletal: no symptoms reported Skin: no symptoms reported Psychiatric/Neurological: No Symptoms Reported Endocrine: No Symptoms Reported Hematologic/Lymphatic: See HPI (BRADY HOFFMAN MD) All Other Systems Reviewed Negative Unless Noted: Yes (Negative excepted noted.) (BEN DICKEY MEDICAL STUDENT) Past Gzajcud-Yqylau-Scdeor Hx Patient Social History 2nd Hand Smoke Exposure: Yes Recent Foreign Travel: No Contact w/Someone Who Travel: No Recent Infectious Disease Expo: No Recent Hopitalizations: No (BEN DICKEY MEDICAL STUDENT) Immunizations Up To Date Tetanus Booster (TDap): Unknown PED Vaccines UTD: No Date of Pneumonia Vaccine: May 24, 2012 Date of Influenza Vaccine: Jan 25, 2016 (BEN DICKEY MEDICAL STUDENT) Seasonal Allergies Seasonal Allergies: Yes (BEN DICKEY STUDENT) Surgeries History of Surgeries: Yes (CYSTS REMOVED FROM THE OVARY) Surgeries: Abdominal, Appendectomy, Cardiac, Defibrillator, Gallbladder, Hysterectomy, Oophorectomy, Pacemaker, Tonsillectomy (BEN DICKEY MEDICAL STUDENT) Surgeries: Abdominal (colonoscopy) (BRADY HOFFMAN MD) Respiratory History of Respiratory Disorde: Yes (COPD, wears oxygen PRN) Respiratory Disorders: Asthma, Pneumonia, Chronic Bronchitis, Sleep Apnea, COPD Currently Using CPAP: No Currently Using BIPAP: No (BEN DICKEY MEDICAL STUDENT) Cardiovascular History of Cardiac Disorders: Yes Cardiac Disorders: High Cholesterol, Irregular Heartbeat (BEN DICKEY MEDICAL STUDENT) Neurological History of Neurological Disord: Yes (PERIPHERAL NEUROPATHY) Neurological Disorders: Headaches /Migraines, Neuropathy (BEN DICKEY MEDICAL STUDENT) 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 System Hx 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 Disorders: No Sexually Transmitted Disease: No Female 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 Disorders: Denies [employer] History: Hysterectomy, Menopausal (BEN DICKEY MEDICAL STUDENT) Genitourinary History of Genitourinary Disor: Yes Genitourinary Disorders: Kidney Infection, Bladder Infection, Kidney Stones, UTI-Chronic (BEN DICKEY MEDICAL STUDENT) Gastrointestinal History of Gastrointestinal Di: Yes Gastrointestinal Disorders: Gastroesophageal Reflux, Diverticulosis, Hemorrhoids, C-Diff, Hiatal Hernia, Ulcer, Gall Bladder Disease, Irritable Bowel (BEN DICKEY MEDICAL STUDENT) Musculoskeletal History of Musculoskeletal Dis: Yes (RESTLESS LEG SYNDROME) Musculoskeletal Disorders: Degenerate Disk Disease, Arthritis, Fibromyalgia, Chronic Back Pain (BEN DICKEY MEDICAL STUDENT) Endocrine History of Endocrine Disorders: Yes Endocrine Disorders: Diabetes, Non-Insulin dep (BEN DICKEY MEDICAL STUDENT) HEENT History of HEENT Disorders: Yes HEENT Disorders: Cataract Loss of Vision: Denies Hearing Impairment: Denies (BEN DICKEY MEDICAL STUDENT) Cancer History of Cancer: No (BEN DICKEY MEDICAL STUDENT) Psychosocial History of Psychiatric Problem: Yes Behavioral Health Disorders: Anxiety, Depression (BEN DICKEY MEDICAL STUDENT) Integumentary History of Skin or Integumenta: Yes Skin/Integumentary Disorders: Pruritis (BEN DICKEY MEDICAL STUDENT) Blood Transfusions History of Blood Disorders: No Adverse Reaction to a Blood Tr: No (BEN DICKEY MEDICAL STUDENT) Family Medical History Significant Family History: No Pertinent Family Hx Family Medial History: Alzheimer's disease 19 FATHER Cardiovascular disease 19 FATHER 19 MOTHER Completed stroke 19 MOTHER Hypertension 19 FATHER 19 MOTHER Myocardial infarction 19 FATHER 19 MOTHER No Family History of: Diabetes mellitus (BEN DICKEY MEDICAL STUDENT) Family Medial History: Alzheimer's disease 19 FATHER Cardiovascular disease 19 FATHER 19 MOTHER Completed stroke 19 MOTHER Hypertension 19 FATHER 19 MOTHER Myocardial infarction 19 FATHER 19 MOTHER No Family History of: Diabetes mellitus (BRADY HOFFMAN MD) Physical Exam Vital Signs VS - Last 72 Hours, by Label 03/29/17 03/29/17 07:17 11:00 Temp 98.2 98.2 Pulse 86 82 Resp 16 16 B/P (MAP) 148/95 (112) Pulse Ox 98 98 (BRADY HOFFMAN MD) Vital Signs Capillary Refill : Less Than 3 Seconds (BEN DICKEY MEDICAL STUDENT) General Appearance: WD/WN, no apparent distress HEENT: normal ENT inspection, TMs normal, pharynx normal Neck: non-tender, full range of motion Respiratory: chest non-tender, lungs clear, normal breath sounds, no respiratory distress Cardiovascular: normal peripheral pulses, regular rate, rhythm, no murmur Gastrointestinal: soft, No guarding, No rebound, tenderness (suprapubic) Rectal: normal rectal tone, hemorrhoids (external), other (no gross blood, no active bleeding, no masses, heme occult negative) Back: normal inspection, no CVA tenderness, no vertebral tenderness Neurologic/Psychiatric: alert, normal mood/affect, oriented x 3 Skin: normal color, warm/dry (BEN DICKEY MEDICAL STUDENT) Progress/Results/Core Measures Results/Orders Lab Results Laboratory Tests Test 03/29/17 07:55 03/29/17 08:00 Range/Units White Blood Count 8.2 4.3-11.0 10^3/uL Red Blood Count 4.45 4.35-5.85 10^6/uL Hemoglobin 13.7 11.5-16.0 G/DL Hematocrit 40 35-52 % Mean Corpuscular Volume 91 80-99 FL Mean Corpuscular Hemoglobin 31 25-34 PG Mean Corpuscular Hemoglobin Concent 34 32-36 G/DL Red Cell Distribution Width 12.6 10.0-14.5 % Platelet Count 241 130-400 10^3/uL Mean Platelet Volume 9.4 7.4-10.4 FL Neutrophils (%) (Auto) 69 42-75 % Lymphocytes (%) (Auto) 22 12-44 % Monocytes (%) (Auto) 7 0-12 % Eosinophils (%) (Auto) 2 0-10 % Basophils (%) (Auto) 1 0-10 % Neutrophils # (Auto) 5.7 1.8-7.8 X 10^3 Lymphocytes # (Auto) 1.8 1.0-4.0 X 10^3 Monocytes # (Auto) 0.5 0.0-1.0 X 10^3 Eosinophils # (Auto) 0.2 0.0-0.3 10^3/uL Basophils # (Auto) 0.0 0.0-0.1 10^3/uL Prothrombin Time 12.9 12.2-14.7 SEC INR Comment 1.0 0.8-1.4 Activated Partial Thromboplast Time 22 L 24-35 SEC Sodium Level 139 135-145 MMOL/L Potassium Level 3.4 L 3.6-5.0 MMOL/L Chloride Level 103 98-107 MMOL/L Carbon Dioxide Level 25 21-32 MMOL/L Anion Gap 11 5-14 MMOL/L Blood Urea Nitrogen 8 7-18 MG/DL Creatinine 0.77 0.60-1.30 MG/DL Estimat Glomerular Filtration Rate > 60 BUN/Creatinine Ratio 10 Glucose Level 179 H 70-105 MG/DL Calcium Level 9.0 8.5-10.1 MG/DL Total Bilirubin 0.6 0.1-1.0 MG/DL Aspartate Amino Transf (AST/SGOT) 28 5-34 U/L Alanine Aminotransferase (ALT/SGPT) 29 0-55 U/L Alkaline Phosphatase 86 40-136 U/L C-Reactive Protein High Sensitivity 2.99 H 0.00-0.50 MG/DL Total Protein 6.6 6.4-8.2 GM/DL Albumin 3.6 3.2-4.5 GM/DL Urine Color YELLOW Urine Clarity CLEAR Urine pH 6.5 5-9 Urine Specific [place] 1.010 L 1.016-1.022 Urine Protein NEGATIVE NEGATIVE Urine Glucose (UA) NEGATIVE NEGATIVE Urine Ketones NEGATIVE NEGATIVE Urine Nitrite NEGATIVE NEGATIVE Urine Bilirubin NEGATIVE NEGATIVE Urine Urobilinogen NORMAL NORMAL MG/DL Urine Leukocyte Esterase 2+ H NEGATIVE Urine RBC (Auto) NEGATIVE NEGATIVE Urine RBC NONE /HPF Urine WBC 5-10 H /HPF Urine Squamous Epithelial Cells 5-10 /HPF Urine Crystals NONE /LPF Urine Bacteria TRACE /HPF Urine Casts NONE /LPF Urine Mucus NEGATIVE /LPF Urine Culture Indicated YES (BRADY HOFFMAN MD) Micro Results Microbiology 1/26/18 C. difficile GDH Antigen & Toxins - Final, Complete (BRADY HOFFMAN MD) My Orders Orders - BRADY HOFFMAN MD Cbc With Automated Diff (03/29/17 07:42) Comprehensive Metabolic Panel (03/29/17 07:42) Hs C Reactive Protein (03/29/17 07:42) Ua Culture If Indicated (03/29/17 07:42) Saline Lock/Iv-Start (03/29/17 07:42) Stool Culture (03/29/17 07:42) Fecal Wbc (03/29/17 07:42) C Difficile Ag + Toxin A/B. (03/29/17 07:42) Protime With Inr (03/29/17 07:42) Partial Thromboplastin Time (03/29/17 07:42) Urine Culture (03/29/17 08:00) Fecal Occult Bedside (03/29/17 08:45) Ns Iv 1000 Ml (Sodium Chloride 0.9%) (03/29/17 08:59) (BRADY HOFFMAN MD) Medications Given in ED (BRADY HOFFMAN MD) Vital Signs/I&O Vital Sign - Last 12Hours 03/29/17 03/29/17 07:17 11:00 Temp 98.2 98.2 Pulse 86 82 Resp 16 16 B/P (MAP) 148/95 (112) Pulse Ox 98 98 (BRADY HOFFMAN MD) Blood Pressure Mean: 112 Progress Note : Progress Note This patient was personally interviewed and examined by me along with Ben Dickey, MS4. I agree with his history, documentation, exam, assessment, and plan with the following additions. Patient presents with a lower abdominal pain and cramping associated with some rectal bleeding this morning. She has several GI pathologies including history of hemorrhoids, diverticulosis, and hemorrhoids. She is not actively bleeding at this time. She does complain of long-term problems with pelvic cramping and pain especially associated with bowel movements. Those symptoms are worse today. She also has recurrent urinary tract infection issues. She also gives a history of prior C. difficile infection and frequent antibiotic use due to UTIs. She has had recent colonoscopy and CT imaging. Those reports were reviewed. Exam Gen.: Alert and oriented, no acute distress HEENT: normocephalic and atraumatic with mucus membranes moist. Heart: Regular rate and rhythm without murmur Lungs: Clear to auscultation bilaterally with normal effort Abdomen: Soft, normal bowel sounds, mild tenderness in the suprapubic region. Rectal: External hemorrhoids without active bleeding or thrombosis, normal tone , Hemoccult negative Skin: Clear Neuro: Alert and oriented, no focal deficits Patient was found to have suggestion of urinary tract infection on a UA. Rectal exam was unremarkable except for external hemorrhoids. Hemoccult was negative. Patient felt dry and was given a liter of normal saline IV. Stool specimen was produce just before discharge and was sent to lab. Patient was empirically treated with Cipro and Flagyl for possible C. difficile and/or diverticulitis. Follow-up instructions and discharge instructions were reviewed with patient. (BRADY HOFFMAN MD) Departure Impression Impression: Primary Impression: Suprapubic pain Additional Impressions: Pain associated with defecation Urinary tract infection Qualified Codes: N39.0 - Urinary tract infection, site not specified Rectal bleeding External hemorrhoids Disposition: HOME, SELF-CARE Condition: Improved Departure-Patient Inst. Decision time for Depature: 09:00 (BRADY HOFFMAN MD) Referrals: NANNETTE REVELES DO (PCP/Family) Primary Care Physician Patient Instructions: Gastrointestinal Bleeding Add. Discharge Instructions: Drink plenty of clear liquids and complete your antibiotics as prescribed. Follow-up with your primary care provider in 1-2 weeks. Consider following up with your surgeon as well. Return to care if symptoms worsen. Contact your primary care provider early next week to review urine culture results to ensure your antibiotic therapy is appropriate. All discharge instructions reviewed with patient and/or family. Voiced understanding. Scripts L.acidoph & Paracasei,B.lactis (Probiotic) 1 Each Capsule 1 EACH PO TIDWM, #30 CAP Prov: BRADY HOFFMAN MD 03/29/17 Metronidazole (Flagyl) 500 Mg Tablet 500 MG PO TID, #30 TAB Prov: BRADY HOFFMAN MD 03/29/17 Ciprofloxacin HCl (Cipro) 500 Mg Tablet 500 MG PO BID, #10 TAB Prov: BRADY HOFFMAN MD 03/29/17 Copy Copies To 1: NANNETTE REVELES ROSS MEDICAL STUDENT Mar 29, 2017 07:29 BRADY HOFFMAN MD Mar 29, 2017 09:59
[2017-03-29 08:01] LABS: BASOPHILS % (AUTO) 1 % (0-10); EOSINOPHILS # (AUTO) 0.2 10^3/uL (0.0-0.3); EOSINOPHILS % (AUTO) 2 % (0-10); HEMATOCRIT 40 % (35-52); HEMOGLOBIN 13.7 G/DL (11.5-16.0); LYMPHOCYTES # (AUTO) 1.8 X 10^3 (1.0-4.0); LYMPHOCYTES % (AUTO) 22 % (12-44); MEAN CORPUSCULAR HEMOGLOBIN 31 PG (25-34); MEAN CORPUSCULAR HGB CONC 34 G/DL (32-36); MEAN CORPUSCULAR VOLUME 91 FL (80-99); MEAN PLATELET VOLUME 9.4 FL (7.4-10.4); MONOCYTES # (AUTO) 0.5 X 10^3 (0.0-1.0); MONOCYTES % (AUTO) 7 % (0-12); NEUTROPHILS # (AUTO) 5.7 X 10^3 (1.8-7.8); NEUTROPHILS % (AUTO) 69 % (42-75); PLATELET COUNT 241 10^3/uL (130-400); RED BLOOD COUNT 4.45 10^6/uL (4.35-5.85); RED CELL DISTRIBUTION WIDTH 12.6 % (10.0-14.5); WHITE BLOOD COUNT 8.2 10^3/uL (4.3-11.0)
[2017-03-29 08:16] LABS: PROTHROMBIN TIME PATIENT 12.9 SEC (12.2-14.7)
[2017-03-29 08:21] LABS: BILIRUBIN,URINE NEGATIVE (NEGATIVE); CLARITY,URINE CLEAR; COLOR,URINE YELLOW; GLUCOSE, URINE (UA) NEGATIVE (NEGATIVE); KETONES,URINE NEGATIVE (NEGATIVE); LEUKOCYTE ESTERASE ,URINE 2+ (NEGATIVE); NITRITE,URINE NEGATIVE (NEGATIVE); PH,URINE 6.5 (5-9); PROTEIN,URINE NEGATIVE (NEGATIVE); UROBILINOGEN,URINE NORMAL (NORMAL)
[2017-03-29 08:24] LABS: ALANINE AMINOTRANSFERASE 29 U/L (0-55); ALBUMIN 3.6 GM/DL (3.2-4.5); ALKALINE PHOSPHATASE 86 U/L (40-136); BILIRUBIN,TOTAL 0.6 MG/DL (0.1-1.0); BUN/CREATININE RATIO 10; CARBON DIOXIDE 25 MMOL/L (21-32); CHLORIDE 103 MMOL/L (98-107); CREATININE SERUM 0.77 MG/DL (0.60-1.30); GFR ESTIMATED > 60; GLUCOSE 179 MG/DL (70-105); POTASSIUM 3.4 MMOL/L (3.6-5.0); SODIUM 139 MMOL/L (135-145); TOTAL PROTEIN 6.6 GM/DL (6.4-8.2)
[2017-03-29 08:31] LABS: BACTERIA,URINE TRACE /HPF
[2017-03-29] MEDS ORDERED: NS IV 1000 ML 1,000 ML IV ONE (08:59)
[2017-03-29] MEDS ORDERED: METR500T PO (09:59)
[2017-03-29] MEDS ORDERED: L.AC1CAP6 PO (09:59)
[2017-03-29] MEDS ORDERED: CIPR-225 PO (09:59)
[2017-03-29 11:00] VITALS: BP 140/90
== END 2017-03-29 11:00 | disposition home or self-care (01) ==
LOC: EDUNIT# 06:53 → ER 06:56
DX: K64.4 Residual hemorrhoidal skin tags (principal); N39.0 Urinary tract infection, site not specified; F41.9 Anxiety disorder, unspecified; F32.9 Major depressive disorder, single episode, unspecified; E11.40 Type 2 diabetes mellitus with diabetic neuropathy, unspecified; K21.9 Gastro-esophageal reflux disease without esophagitis; G62.9 Polyneuropathy, unspecified; G43.909 Migraine, unspecified, not intractable, without status migrainosus; E78.00 Pure hypercholesterolemia, unspecified; J44.9 Chronic obstructive pulmonary disease, unspecified; Z77.22 Contact with and (suspected) exposure to environmental tobacco smoke (acute) (chronic); Z95.810 Presence of automatic (implantable) cardiac defibrillator; Z90.49 Acquired absence of other specified parts of digestive tract; Z90.89 Acquired absence of other organs; Z87.442 Personal history of urinary calculi; Z90.710 Acquired absence of both cervix and uterus; Z87.19 Personal history of other diseases of the digestive system
CPT/HCPCS: 36415; 80053; 81000; 85025; 85610; 85730; 86141; 87045; 87046; 87088; 87324; 87449

== ENCOUNTER 2017-06-01 18:14 | Emergency (ER) | payer MEDICARE ==
[~2017-06-01] VITALS: Ht 162.6 cm; Wt 97.1 kg
[2017-06-01] MEDS ORDERED: diphenhydrAMINE 50 MG/ML INJ (BENADRYL) IV STA (19:15)
[2017-06-01] MEDS ORDERED: KETOROLAC 30 MG/ML VIAL IVP STA (19:15)
[2017-06-01 19:23] LABS: BASOPHILS # (AUTO) 0.1 10^3/uL (0.0-0.1); BASOPHILS % (AUTO) 1 % (0-10); EOSINOPHILS # (AUTO) 0.3 10^3/uL (0.0-0.3); EOSINOPHILS % (AUTO) 2 % (0-10); HEMATOCRIT 41 % (35-52); HEMOGLOBIN 13.9 G/DL (11.5-16.0); LYMPHOCYTES # (AUTO) 3.6 X 10^3 (1.0-4.0); LYMPHOCYTES % (AUTO) 32 % (12-44); MEAN CORPUSCULAR HEMOGLOBIN 31 PG (25-34); MEAN CORPUSCULAR HGB CONC 34 G/DL (32-36); MEAN CORPUSCULAR VOLUME 90 FL (80-99); MEAN PLATELET VOLUME 10.1 FL (7.4-10.4); MONOCYTES # (AUTO) 0.7 X 10^3 (0.0-1.0); MONOCYTES % (AUTO) 6 % (0-12); NEUTROPHILS # (AUTO) 6.5 X 10^3 (1.8-7.8); NEUTROPHILS % (AUTO) 59 % (42-75); PLATELET COUNT 272 10^3/uL (130-400); RED BLOOD COUNT 4.54 10^6/uL (4.35-5.85); RED CELL DISTRIBUTION WIDTH 12.6 % (10.0-14.5); WHITE BLOOD COUNT 11.1 10^3/uL (4.3-11.0)
[2017-06-01 19:37] LABS: ALANINE AMINOTRANSFERASE 29 U/L (0-55); ALBUMIN 3.7 GM/DL (3.2-4.5); ALKALINE PHOSPHATASE 97 U/L (40-136); BILIRUBIN,TOTAL 0.3 MG/DL (0.1-1.0); BUN/CREATININE RATIO 14; CARBON DIOXIDE 25 MMOL/L (21-32); CHLORIDE 103 MMOL/L (98-107); CREATININE SERUM 0.77 MG/DL (0.60-1.30); GFR ESTIMATED > 60; GLUCOSE 188 MG/DL (70-105); POTASSIUM 3.7 MMOL/L (3.6-5.0); SODIUM 137 MMOL/L (135-145); TOTAL PROTEIN 5.6 GM/DL (6.4-8.2)
--- NOTE | 2017-06-01 21:36 | ED Integumentary General ---
General Chief Complaint: Skin/Wound Problems Stated Complaint: HEADACHE Nursing Triage Note: PT PRESENTS TO ED WITH COMPLAINTS OF MCCORMICK STARTING YESTERDAY AND LOWER ABDOMEN INFECTION X [address] PT RE[address] DYER DID A BIOPSY SATURDAY BUT SHE HAS NOT HEARD ANY RESULTS. History of Present Illness Date Seen by Provider: Jun 01, 2017 Time Seen by Provider: 19:00 Initial Comments 71-year-old female reports for headache and increased drainage from her abdominal pannus excoriation. She reports for several weeks now she has been treating the area with antifungal medications. She was recently referred to Dr. Dyer who did a biopsy of the area. She was started on a new antifungal powder by him 3 days ago. She is currently keeping the area open at home and wearing a loose fitting sure so that he can actively drain. She reports a foul smell and yellow liquid drainage. She reports difficulty in keeping the area clean or applying her dressings as instructed. She has recurrent headaches and uses various [id number] medications as needed. Her current headache is primarily frontal. She is wearing sunglasses for photophobia. Timing/Duration: getting worse Severity: mild Possible Cause: no cause identified Associated Symptoms: change in skin texture ( pannus) Allergies and Home Medications Allergies Coded Allergies: hydromorphone (Verified Allergy, Mild, STRONG RASH, 06/08/16) Penicillins (Unverified Allergy, Unknown, Pt has received Cefepime & Ceftriaxone in the past w/o issue, 01/18/17) Sulfa (Sulfonamide Antibiotics) (Verified Allergy, Unknown, 06/08/16) aspirin (Verified Adverse Reaction, Mild, ASPIRIN SENSITIVE, 06/08/16) sumatriptan (Verified Adverse Reaction, Mild, PALPITATIONS, 06/08/16) Home Medications Benzonatate 100 Mg Capsule, 100 MG PO Q6H PRN for COUGH Prescribed by: ISRAEL ODELL on 03/11/17 1623 Ciprofloxacin HCl 500 Mg Tablet, 500 MG PO BID Prescribed by: BRADY BROWN on 03/29/17 0959 L.acidoph & Paracasei,B.lactis 1 Each Capsule, 1 EACH PO TIDWM Prescribed by: BRADY BROWN on 03/29/17 0959 Metronidazole 500 Mg Tablet, 500 MG PO TID Prescribed by: BRADY BROWN on 03/29/17 0959 Tramadol HCl 50 Mg Tablet, 50 MG PO Q4H Prescribed by: PETER ASHLEY on 01/18/172039 Patient Home Medication List Home Medication List Reviewed: Yes Constitutional: no symptoms reported, see HPI Skin: see HPI, lesions (pannus), rash Psychiatric/Neurological: See HPI, Headache Past Ipqxieb-Bldoge-Pvaooi Hx Patient Social History Alcohol Use: Denies Use Recreational Drug Use: No Smoking Status: Never a Smoker 2nd Hand Smoke Exposure: Yes Recent Foreign Travel: No Contact w/Someone Who Travel: No Recent Infectious Disease Expo: No Recent Hopitalizations: No Physical Abuse: No Sexual Abuse: No Mistreated: No Fear: No Immunizations Up To Date Tetanus Booster (TDap): Unknown PED Vaccines UTD: No Date of Pneumonia Vaccine: May 24, 2012 Date of Influenza Vaccine: Jan 25, 2016 Seasonal Allergies Seasonal Allergies: Yes Surgeries History of Surgeries: Yes (CYSTS REMOVED FROM THE OVARY) Surgeries: Abdominal, Appendectomy, Gallbladder, Hysterectomy Respiratory History of Respiratory Disorde: Yes (COPD, wears oxygen PRN) Respiratory Disorders: Asthma, Pneumonia, Chronic Bronchitis, Sleep Apnea, COPD Currently Using CPAP: No Currently Using BIPAP: No Cardiovascular History of Cardiac Disorders: Yes Cardiac Disorders: High Cholesterol, Irregular Heartbeat Neurological History of Neurological Disord: Yes (PERIPHERAL NEUROPATHY) Neurological Disorders: Headaches /Migraines, Neuropathy 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 System Hx 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 Disorders: No Sexually Transmitted Disease: No Female 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 Disorders: Denies 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, Menopausal Genitourinary History of Genitourinary Disor: Yes Genitourinary Disorders: Kidney Infection, Bladder Infection, Kidney Stones, UTI-Chronic Gastrointestinal History of Gastrointestinal Di: Yes Gastrointestinal Disorders: Gastroesophageal Reflux, Diverticulosis, Hemorrhoids, C-Diff, Hiatal Hernia, Ulcer, Gall Bladder Disease, Irritable Bowel Musculoskeletal History of Musculoskeletal Dis: Yes (RESTLESS LEG SYNDROME) Musculoskeletal Disorders: Degenerate Disk Disease, Arthritis, Fibromyalgia, Chronic Back Pain Endocrine History of Endocrine Disorders: Yes Endocrine Disorders: Diabetes, Non-Insulin dep HEENT History of HEENT Disorders: Yes HEENT Disorders: Cataract Loss of Vision: Denies Hearing Impairment: Denies Cancer History of Cancer: No Psychosocial History of Psychiatric Problem: Yes Behavioral Health Disorders: Anxiety, Depression Suicide Risk Score: 0 Integumentary History of Skin or Integumenta: Yes Skin/Integumentary Disorders: Pruritis Blood Transfusions History of Blood Disorders: No Adverse Reaction to a Blood Tr: No Reviewed Nursing Assessment Reviewed/Agree w Nursing PMH: Yes Family Medical History Significant Family History: No Pertinent Family Hx Family Medial History: Alzheimer's disease 19 FATHER Cardiovascular disease 19 FATHER 19 MOTHER Completed stroke 19 MOTHER Hypertension 19 FATHER 19 MOTHER Myocardial infarction 19 FATHER 19 MOTHER No Family History of: Diabetes mellitus Physical Exam Vital Signs Vital Signs - First Documented 06/01/17 18:53 Temp 99.7 Pulse 70 Resp 20 B/P (MAP) 149/82 (104) Pulse Ox 95 Capillary Refill : Less Than 3 Seconds General Appearance: WD/WN, no apparent distress HEENT: PERRL/EOMI, normal ENT inspection, TMs normal, pharynx normal, photophobia Neck: non-tender, full range of motion, supple Cardiovascular: normal peripheral pulses, regular rate, rhythm Respiratory: chest non-tender, lungs clear Gastrointestinal: normal bowel sounds, soft, distended Neurologic/Psychiatric: alert, normal mood/affect, oriented x 3 Skin: normal color Skin Problem Location: other (Abdomen, lower) Skin Problem Character: drainage (Clear to yellow with foul smell), erythema, rash, urticarial (Marked excoriation and erythema.) Lymphatic: no adenopathy Progress/Results/Core Measures Results/Orders Lab Results Laboratory Tests Test 06/01/17 18:48 Range/Units White Blood Count 11.1 H 4.3-11.0 10^3/uL Red Blood Count 4.54 4.35-5.85 10^6/uL Hemoglobin 13.9 11.5-16.0 G/DL Hematocrit 41 35-52 % Mean Corpuscular Volume 90 80-99 FL Mean Corpuscular Hemoglobin 31 25-34 PG Mean Corpuscular Hemoglobin Concent 34 32-36 G/DL Red Cell Distribution Width 12.6 10.0-14.5 % Platelet Count 272 130-400 10^3/uL Mean Platelet Volume 10.1 7.4-10.4 FL Neutrophils (%) (Auto) 59 42-75 % Lymphocytes (%) (Auto) 32 12-44 % Monocytes (%) (Auto) 6 0-12 % Eosinophils (%) (Auto) 2 0-10 % Basophils (%) (Auto) 1 0-10 % Neutrophils # (Auto) 6.5 1.8-7.8 X 10^3 Lymphocytes # (Auto) 3.6 1.0-4.0 X 10^3 Monocytes # (Auto) 0.7 0.0-1.0 X 10^3 Eosinophils # (Auto) 0.3 0.0-0.3 10^3/uL Basophils # (Auto) 0.1 0.0-0.1 10^3/uL Sodium Level 137 135-145 MMOL/L Potassium Level 3.7 3.6-5.0 MMOL/L Chloride Level 103 98-107 MMOL/L Carbon Dioxide Level 25 21-32 MMOL/L Anion Gap 9 5-14 MMOL/L Blood Urea Nitrogen 11 7-18 MG/DL Creatinine 0.77 0.60-1.30 MG/DL Estimat Glomerular Filtration Rate > 60 BUN/Creatinine Ratio 14 Glucose Level 188 H 70-105 MG/DL Lactic Acid Level 1.64 0.50-2.00 MMOL/L Calcium Level 9.0 8.5-10.1 MG/DL Total Bilirubin 0.3 0.1-1.0 MG/DL Aspartate Amino Transf (AST/SGOT) 32 5-34 U/L Alanine Aminotransferase (ALT/SGPT) 29 0-55 U/L Alkaline Phosphatase 97 40-136 U/L C-Reactive Protein High Sensitivity 1.52 H 0.00-0.50 MG/DL Total Protein 5.6 L 6.4-8.2 GM/DL Albumin 3.7 3.2-4.5 GM/DL Micro Results Microbiology 06/01/17 Blood Culture - Preliminary, Resulted No growth 06/01/17 Blood Culture - Preliminary, Resulted No growth My Orders Orders - KELLY WASHBURN Cbc With Automated Diff (06/01/17 19:15) Comprehensive Metabolic Panel (06/01/17 19:15) Hs C Reactive Protein (06/01/17 19:15) Blood Culture (06/01/17 19:15) Lactic Acid Analyzer (06/01/17 19:15) Ketorolac Injection (Toradol Injection) (06/01/17 19:15) Diphenhydramine Injection (Benadryl Inje (06/01/17 19:15) Vital Signs/I&O Vital Sign - Last 12Hours 06/01/17 06/01/17 18:53 21:38 Temp 99.7 98.4 Pulse 70 68 Resp 20 20 B/P (MAP) 149/82 (104) 142/80 (104) Pulse Ox 95 97 Blood Pressure Mean: 104 Progress Note : Time: 19:00 Progress Note Initial evaluation completed, labs, Toradol 30 mg IV, Benadryl 25 mg IV, for headache. Then reevaluation. 2029 patient reports improvement in her headache. Labs all normal, with exception of elevated glucose. [address] Dyer by phone. She was instructed to apply the Diflucan powder to 4 x 4's and keep the pannus packed, changing them at least twice a day to keep the area clean and dry. She has been noncompliant with this treatment plan. 2114 the pannus was thoroughly irrigated with sterile normal saline, 500 ML's. The area was thoroughly dried, sterile 4 x 4's were packed and secured using mesh briefs. She was instructed upon returning home to place 4 x 4's and a Ziploc bag with her Diflucan powder and shakes them, then continue to pack the pannus with the 4 x 4's and change them as they become moist. Stressed the importance in keeping this area clean and dry to help it with healing. Discharge instructions and return precautions reviewed. Departure Impression Impression: Primary Impression: Fungal infection of skin Additional Impression: Migraine headache Qualified Codes: G43.919 - Migraine, unspecified, intractable, without status migrainosus Disposition: HOME, SELF-CARE Condition: Stable Departure-Patient Inst. Decision time for Depature: 21:15 Referrals: NANNETTE REID DO (PCP/Family) Primary Care Physician Patient Instructions: Wound Care (DC) Add. Discharge Instructions: Put your diflucan powder and 4x4 gauze in zip lock, shake it thoroughly, then apply to wounds. Use disposable underwear to hold in place. Change 4x4s twice daily or as they become moist. You need to keep skin clean and dry. Follow up with Dr. Reid and Dr. Dyer next week. Return to Emergency Dept for new or worsening problems. All discharge instructions reviewed with patient and/or family. Voiced understanding. Copy Copies To 1: NANNETTE REID DO Copies To 2: BLAYNE DYER AMY ARNP Jun 01, 2017 21:36
[2017-06-01 21:38] VITALS: BP 142/80
--- OUTSIDE RECORDS SUMMARY | 2017-06-02 04:41 | XMS REPORT | Continuity of Care Document ---
Author Author [employer] Organization [employer] Address Unknown Phone Unavailable Care Team Providers Care Supervisor In Charge Name Role Phone [employer] Unavailable Unavailable Problems Medications Allergies, Adverse Reactions, Alerts Immunizations Results Vital Signs Encounters Location Location Details Encounter Type Encounter Number Reason For Visit Attending Provider ADM Date DC Date Status Source OUTPATIENT [id number] PANCHITO GAO 08/24/2016 08/24/2016 Active [facility] OUTPATIENT [id number] PANCHITO GAO 04/01/2017 04/01/2017 Active [facility] Emma CHRISTIANSON 07/12/2017 Active [facility] Procedures Plan of Care Social History Assessment and Plan Family History Advance Directives Functional Status
== END 2017-06-01 21:38 | disposition home or self-care (01) ==
LOC: EDUNIT# 18:14 → ER 18:15
DX: B36.9 Superficial mycosis, unspecified (principal); G43.909 Migraine, unspecified, not intractable, without status migrainosus; F41.9 Anxiety disorder, unspecified; F32.9 Major depressive disorder, single episode, unspecified; E11.40 Type 2 diabetes mellitus with diabetic neuropathy, unspecified; E78.00 Pure hypercholesterolemia, unspecified; G25.81 Restless legs syndrome; K21.9 Gastro-esophageal reflux disease without esophagitis; J44.9 Chronic obstructive pulmonary disease, unspecified; G47.9 Sleep disorder, unspecified; Z77.22 Contact with and (suspected) exposure to environmental tobacco smoke (acute) (chronic); Z87.442 Personal history of urinary calculi; Z90.49 Acquired absence of other specified parts of digestive tract; Z88.0 Allergy status to penicillin; Z88.6 Allergy status to analgesic agent; Z88.1 Allergy status to other antibiotic agents; Z88.8 Allergy status to other drugs, medicaments and biological substances
CPT/HCPCS: 36415; 80053; 83605; 85025; 86141; 87040; 96374; 96375; 99284

== ENCOUNTER 2017-06-10 14:30 | Outpatient (CLI) | payer MEDICARE ==
[~2017-06-10] VITALS: Ht 162.6 cm; Wt 97.1 kg
[~2017-06-10 14:30] MED LIST changes: -AMIT50TA3; +AMIT50TA3 PO; -BUSP5TAB59; -GLIM4TAB; +GLIM4TAB PO; -LORA0.5T; -OMEP40CA36; -PROP60TA17; +PROP60TA17 PO
[2017-06-10] MEDS ORDERED: PRAM1TAB5 PO (14:45)
== END 2017-06-10 14:51 ==
LOC: PREOP 14:30
PROVIDERS: ATTEND Specialist
DX: Z01.818 Encounter for other preprocedural examination (principal); H25.11 Age-related nuclear cataract, right eye

== ENCOUNTER → 2017-06-12 | Outpatient (CLI) | payer MEDICARE ==
[2017-06-12 15:11] LABS: CHOLESTEROL 204 MG/DL (< 200); HDL CHOLESTEROL 42 MG/DL (40-60); TRIGLYCERIDES 227 MG/DL (<150); VLDL CHOLESTEROL 45 MG/DL (5-40)
== END ==
LOC: LAB 13:48
PROVIDERS: ATTEND Family Medicine
DX: E11.65 Type 2 diabetes mellitus with hyperglycemia (principal); E78.2 Mixed hyperlipidemia
CPT/HCPCS: 36415; 80061; 83036

== ENCOUNTER 2017-06-14 07:28 | Day surgery (SDC) | payer MEDICARE ==
[~2017-06-14] VITALS: Ht 162.6 cm; Wt 97.1 kg
[~2017-06-14 07:28] MED LIST changes: -IPRA3AMP INH; -IPRA3AMP NEB; +IPRA3AMP31 INH; +IPRA3AMP31 NEB; -PIOG30TA26 PO; +PIOG30TA71 PO
[2017-06-14] MEDS ORDERED: TIMOLOL MALEATE 0.5% 5 ML (TIMOPTIC) BTL OU PRN (07:45)
[2017-06-14] MEDS ORDERED: POVIDONE (BETADINE) OPHTH SOLN 5% 30 ML OP ONE (07:45)
[2017-06-14] MEDS ORDERED: VANCOMYCIN/BSS (COMPOUNDED) 10 MG/ML SYR OP ONE (07:45)
[2017-06-14] MEDS ORDERED: LIDOCAINE PF 1% 2 ML AMP IR PRN (07:45)
[2017-06-14] MEDS ORDERED: EPINEPHrine INJECTION 1 MG/ML AMP INJ ONE (07:45)
[2017-06-14 07:50] VITALS: BP 127/95
[2017-06-14] MEDS: TETRACAINE 0.5% OPHTH SOLN 4 ML BTL (SINGLE DOSE ONLY) OU PRN ×4 (07:57→08:14)
[2017-06-14] MEDS: PHENYLEPHRINE 10% OPHTH (NEO-SYN) 5 ML BTL OU SCH ×3 (08:05→08:14)
[2017-06-14] MEDS: CYCLOPENTOLATE 1% (CYCLOGYL) 2 ML DROPS OP SCH ×3 (08:05→08:14)
[2017-06-14] MEDS ORDERED: MIDAZOLAM 2 MG/2 ML (VERSED) VIAL ONE (08:17)
--- NOTE | 2017-06-14 08:28 | Ophthalmologist Pre-Op Note ---
Pre-Operative Progress Note H&P Reviewed The H&P was reviewed, patient examined and no changes noted. Date H&P Reviewed: Jun 14, 2017 Time H&P Reviewed: 08:28 Pre-Op Dx Cataract, Right Eye ANGELES PAN MD Jun 14, 2017 08:28
[2017-06-14 08:52] VITALS: BP 120/76
--- NOTE | 2017-06-14 08:53 | Ophthalmology Operative Report ---
Cataract removal/placement IOL PREOPERATIVE DIAGNOSIS: Cataract Right Eye POSTOPERATIVE DIAGNOSIS: Cataract Right Eye PROCEDURE: Cataract removal and placement of posterior chamber implant, right eye SURGEON: Chago Pan ANESTHESIA: Topical with sedation COMPLICATIONS: None ESTIMATED BLOOD LOSS: Minimal DESCRIPTION OF PROCEDURE: After proper informed consent was obtained, the patient, a 71 female, was taken to the Operating Room and the right eye was anesthetized with tetracaine. They right eye was then prepped and draped in the usual manner. A wire lid speculum was placed. A paracentesis was made at the left hand position. Preservative free lidocaine was injected into the anterior chamber followed by viscoelastic. A clear corneal incision was made in the temporal position. A capsulorrhexis was preformed and the central nuclear and cortical material were removed. The posterior capsule was polished and Nigel 22.5 SN6CWS IOL was placed into the capsular bag. The residual viscoelastic was aspirated and balanced saline solution was injected into the anterior chamber. 1.0 mg of Vancomycin (10mg/ 1.0ml) was injected into the anterior chamber. The would was checked and found to be water tight. The patient tolerated the procedure well without complications. CHAGO PAN MD Jun 14, 2017 08:53
--- NOTE | 2017-06-14 11:39 | Anesthesia-General Post-Op ---
MAC Patient Condition Mental Status/LOC: Same as Preop Cardiovascular: Satisfactory Nausea/Vomiting: Absent Respiratory: Satisfactory Pain: Controlled Complications: Absent Post Op Complications Complications None Follow Up Care/Instructions Patient Instructions None needed. Anesthesiology Discharge Order Discharge Order Patient is doing well, no complaints, stable vital signs, no apparent adverse anesthesia problems. No complications reported per nursing. JOANIE MEJIA CRNA Jun 14, 2017 11:38
[2017-07-15] MEDS ORDERED: CODE118S4 PO (20:55)
== END 2017-06-14 09:05 | disposition home or self-care (01) ==
LOC: SDC 07:28
PROVIDERS: ATTEND Specialist
DX: E11.36 Type 2 diabetes mellitus with diabetic cataract (principal); I25.10 Atherosclerotic heart disease of native coronary artery without angina pectoris; I10 Essential (primary) hypertension; J44.9 Chronic obstructive pulmonary disease, unspecified; K21.9 Gastro-esophageal reflux disease without esophagitis; Z95.810 Presence of automatic (implantable) cardiac defibrillator; Z79.899 Other long term (current) drug therapy
CPT/HCPCS: 82962

== ENCOUNTER 2017-06-20 05:33 | Outpatient (CLI) | payer MEDICARE ==
[~2017-06-20] VITALS: Ht 162.6 cm; Wt 97.1 kg
[2017-07-15] MEDS ORDERED: CODE118S4 PO (20:55)
== END 2017-06-20 15:03 ==
LOC: PREOP 05:33
PROVIDERS: ATTEND Specialist
DX: Z01.818 Encounter for other preprocedural examination (principal); H25.12 Age-related nuclear cataract, left eye

== ENCOUNTER 2017-06-28 07:39 | Day surgery (SDC) | payer MEDICARE ==
[~2017-06-28] VITALS: Ht 162.6 cm; Wt 97.1 kg
[~2017-06-28 07:39] MED LIST changes: +IPRA3AMP INH; +IPRA3AMP NEB; -IPRA3AMP31 INH; -IPRA3AMP31 NEB; +PIOG30TA26 PO; -PIOG30TA71 PO
[2017-06-28 07:47] VITALS: BP 144/84
[2017-06-28 07:59] VITALS: BP 144/84
[2017-06-28] MEDS ORDERED: LIDOCAINE PF 1% 2 ML AMP IR PRN (08:00)
[2017-06-28] MEDS ORDERED: EPINEPHrine INJECTION 1 MG/ML AMP INJ ONE (08:00)
[2017-06-28] MEDS ORDERED: VANCOMYCIN/BSS (COMPOUNDED) 10 MG/ML SYR OP ONE (08:00)
[2017-06-28] MEDS ORDERED: POVIDONE (BETADINE) OPHTH SOLN 5% 30 ML OP ONE (08:00)
[2017-06-28] MEDS ORDERED: TIMOLOL MALEATE 0.5% 5 ML (TIMOPTIC) BTL OU PRN (08:00)
[2017-06-28] MEDS: TETRACAINE 0.5% OPHTH SOLN 4 ML BTL (SINGLE DOSE ONLY) OU PRN ×4 (08:03→08:28)
[2017-06-28] MEDS: PHENYLEPHRINE 10% OPHTH (NEO-SYN) 5 ML BTL OU SCH ×3 (08:12→08:28)
[2017-06-28] MEDS: CYCLOPENTOLATE 1% (CYCLOGYL) 2 ML DROPS OP SCH ×3 (08:12→08:28)
[2017-06-28] MEDS ORDERED: MIDAZOLAM 2 MG/2 ML (VERSED) VIAL ONE (08:38)
--- NOTE | 2017-06-28 08:46 | Ophthalmologist Pre-Op Note ---
Pre-Operative Progress Note H&P Reviewed The H&P was reviewed, patient examined and no changes noted. Date H&P Reviewed: Jun 28, 2017 Time H&P Reviewed: 08:46 Pre-Op Dx Cataract, Left Eye ANGELES PAN MD Jun 28, 2017 08:46
--- NOTE | 2017-06-28 09:07 | Ophthalmology Operative Report ---
Cataract removal/placement IOL PREOPERATIVE DIAGNOSIS: Cataract Left Eye POSTOPERATIVE DIAGNOSIS: Cataract Left Eye PROCEDURE: Cataract removal and placement of posterior chamber implant, left eye SURGEON: Chago Pan ANESTHESIA: Topical with sedation COMPLICATIONS: None ESTIMATED BLOOD LOSS: Minimal DESCRIPTION OF PROCEDURE: After proper informed consent was obtained, the patient, a 72 female, was taken to the Operating Room and the left eye was anesthetized with tetracaine. They left eye was then prepped and draped in the usual manner. A wire lid speculum was placed. A paracentesis was made at the left hand position. Preservative free lidocaine was injected into the anterior chamber followed by viscoelastic. A clear corneal incision was made in the temporal position. A capsulorrhexis was preformed and the central nuclear and cortical material were removed. The posterior capsule was polished and Nigel 22.0 SN6CWS IOL was placed into the capsular bag. The residual viscoelastic was aspirated and balanced saline solution was injected into the anterior chamber. 1.0 mg of Vancomycin (10mg/ 1.0ml) was injected into the anterior chamber. The would was checked and found to be water tight. The patient tolerated the procedure well without complications. CHAGO PAN MD Jun 28, 2017 09:07
[2017-06-28 09:20] VITALS: BP 154/88
--- NOTE | 2017-06-28 10:26 | Anesthesia-General Post-Op ---
MAC Patient Condition Mental Status/LOC: Same as Preop Cardiovascular: Satisfactory Nausea/Vomiting: Absent Respiratory: Satisfactory Pain: Controlled Complications: Absent Post Op Complications Complications None Follow Up Care/Instructions Patient Instructions None needed. Anesthesiology Discharge Order Discharge Order Patient was seen after surgery and was doing well, no complaints, stable vital signs, no apparent adverse anesthesia problems. AVRIL BELL DO Jun 28, 2017 10:26
== END 2017-06-28 09:25 | disposition home or self-care (01) ==
LOC: SDC 07:39
PROVIDERS: ATTEND Specialist
DX: E11.36 Type 2 diabetes mellitus with diabetic cataract (principal); I25.10 Atherosclerotic heart disease of native coronary artery without angina pectoris; I10 Essential (primary) hypertension; J44.9 Chronic obstructive pulmonary disease, unspecified; K21.9 Gastro-esophageal reflux disease without esophagitis; G43.909 Migraine, unspecified, not intractable, without status migrainosus; Z95.810 Presence of automatic (implantable) cardiac defibrillator; Z79.84 Long term (current) use of oral hypoglycemic drugs; Z79.899 Other long term (current) drug therapy
CPT/HCPCS: 82962

== ENCOUNTER 2017-07-15 17:59 | Emergency (ER) | payer MEDICARE ==
[~2017-07-15] VITALS: Ht 165.1 cm; Wt 98.0 kg
--- OUTSIDE RECORDS SUMMARY | 2017-07-15 18:05 | XMS REPORT | Continuity of Care Document ---
Author Author [employer] Organization [facility] Address Unknown Phone Unavailable Care Team Providers Care Product Safety Manager Name Role Phone [employer] Unavailable Unavailable Problems Medications Allergies, Adverse Reactions, Alerts Immunizations Results Vital Signs Encounters Location Location Details Encounter Type Encounter Number Reason For Visit Attending Provider ADM Date DC Date Status Source OUTPATIENT [id number] PANCHITO GAO 08/24/2016 08/24/[address] [facility] OUTPATIENT [id number] PANCHITO GAO 04/01/2017 04/01/[address] [facility] O 07/12/[address] [facility] OUTPATIENT [id number] MOLINA CHRISTIANSON 07/12/[address] [facility] Procedures Plan of Care Social History Assessment and Plan Family History Advance Directives Functional Status
--- OUTSIDE RECORDS SUMMARY | 2017-07-15 18:05 | XMS REPORT | Encounter Summary ---
Author Author [facility] Organization [facility] Address Unknown Phone Unavailable Care Team Providers Care Boot Turner Name Role Phone Belia Reid MD PCP Reason for Visit * Reason Comments Diabetes * Consult, Test & Treat (Urgent) Status Reason Specialty Diagnoses / Referred By Referred To Procedures Contact Contact No Auth Needed Specialty Endocrinology and Diagnoses Deisy Benavides Im Diabetes Services Diabetes Services Diabetes MD Mena 5TH FLOOR POD A Required / Endocrinology, mellitus of [address] Metabolism & other type with Blvd MED OFFICE BLDG Genetics complication, [place] [address] [place], [place] [address] term insulin use [id number] Phone: status [phone] Encounter Details Date Type Department Care Team Description 07/12/2017 Office Visit [facility] Rafael Bergman PA-C Uncontrolled type 2 Physicians - Internal [address] diabetes mellitus [place] [address] hyperglycemia, without 5TH FLOOR POD A [phone] long-term current use of [address] MED insulin (HCC) (Primary OFFICE BLDG D Dx); [place], [place] Calvin antoine APRN Type 2 diabetes mellitus [id number] with hyperglycemia, [place] 2018 [place] [address] use of insulin (HCC); [phone] Pain with urination Social History Tobacco Use Types Packs/Day Years Used Date Never Smoker Smokeless Tobacco: Never Used Alcohol Use Drinks/Week oz/Week Comments No 0 Standard 0.0 drinks or equivalent Sex Assigned at Date Recorded Not on file as of this encounter Last Filed Vital Signs Vital Sign Reading Time Taken Blood Pressure 123/81 07/12/2017 10:07 AM CDT Pulse 64 07/12/2017 10:07 AM CDT Temperature - - Respiratory Rate - - Oxygen Saturation - - Inhaled Oxygen - - Concentration Weight 98 kg (216 lb) 07/12/2017 10:07 AM CDT Height 160 cm (5' 3") 07/12/2017 10:07 AM CDT Body Mass Index 38.26 07/12/2017 10:07 AM CDT in this encounter Instructions * Patient Instructions - Calvin Tripp APRN - 07/12/2017 10:00 AM CDT Goals we discussed today: Take metformin XR 500 mg daily with your largest meal. Avoid eating fatty or fried foods. If you are tolerating well with no nausea or diarrhea, may increase dose weekly as below until you are taking full 2000 mg daily. 2nd week, 2 tabs daily 3rd week, 3 tabs daily 4th week and beyond, 4 tabs daily Do not split these tablets in 1/2. If difficult to swallow, take with applesauce or yogurt. Start Trulicity 0.75 mg weekly for first 2 weeks. If tolerating this may increase to 1.5 mg weekly. Continue glimepiride 2mg twice daily with meals Please contact [facility] for any questions or abnormal glucose values (above 300 or less than 70 repeatedly). [phone]. My nurse can be reached at [phone]. Health goals for a person with diabetes to avoid complications are: Check your FingerStick blood glucose: Each time you take medications for your glucose, goals are: Fasting and pre-meal glucose: 70-130 mg/dl, Bedtime blood glucose: 90-180 mg/dl LDL Cholesterol: <100 mg/dl, Triglycerides: <150 mg/dl, HDL >40 for men, >50 for women Blood pressure: Less than 130/90 mm HG Maintain a Healthy Weight , Exercise: 30 minutes 5 times per week Foot care: Take good care of your feet. Never cut your nails close to the tips of the toes. Promptly call your doctor if you have an infection, ulcer or cut anywhere on your feet. Wear shoes with a wide toe box and that fit comfortably. Avoid walking barefoot. Your recent lab values: No results found for: GLUPOC No results found for: CHOL, HDL, LDL No results found for: TRIG Diabetes Support Group Monthly DM Support Group facilitated by CDE. There is no fee or Registration required for attendance. Meets the first Saturday of each month from 6-7:30pm at the [facility], [address], [address], [place] [address]. [facility] Diabetes Classes and Education Opportunities To schedule Diabetes Education please call , Option 3 Contact your insurance company to determine coverage for diabetes education. in this encounter Progress Notes * Calvin Tripp, GLOBAL MARKETING MANAGER - 07/12/2017 10:00 AM CDT Formatting of this note may be different from the original. Date of Service: 07/12/2017 Subjective: Diana Gregory is a 72 y.o. female. History of Present Illness Pt presents to clinic for management of T2 DM. This is the initial appointment at [facility]. PCP is Dr. Reid in [place], [place]. Referred by urology as she has recurrent UTIs likely due to hyperglycemia A1C is now 9.2, was previously 9.9 in 03/21. Wt today is 216 lbs. No meter for review. Fasting BGs range 180s+ and daytime BGs range 200s+. Pt discusses how finances are limited, and sometimes has to skimp and buy cheaper foods, that she knows are higher carbs. She doesn't drive anymore due to narcolepsy. She is disabled. She recently had cataract surgery with complications of eye swelling, was not able to afford the meds and has not called her eye doctor yet. I have urged her to call the eye doctor immediately after this visit. She reports a complicated medical history, having chronic back pain and fibromyalgia, migraines, neuropathies, recurrent kidney stones, diverticulitis, IBS. Had a defib placed internally after she had an ID during surgery for nasal septum surgery. She has had many recent hospitalizations for "choking" and pnuemonia, during which she was using prednisone and ativan to help with relief. T2 DM: Dx: 2012, and did not treat this for a few years Current treatment: glimepiride 2 mg in the AM and PM. Has used samples of trulicity successfully from her PCP, but ran out. Medication adherent: when she can afford them Past treatment: metformin--diarrhea, trulicity -tolerated samples well. Used insulin in the hospital when using prednisone. SMBG and consistency: should check daily or BID, has a meter but costly Hyperglycemia: yes, almost always Hypoglycemia: yes, when traveling had severe hypoglycemia when she skipped a meal. Feels low at 90 and uses PB or chocolate Meals per day: 3 CHO intake: Too high as she tries to save money and buy "filler foods such as rice, pasta and potatoes" Exercise: no, rarely getting out of bed due to pain Complications of DM: CAD: ID in 2010 during surgery for deviated septum CVA: yes, TIAs PVD: no Amputations: no Retinopathy: cataract surgery recently Gastropathy: no Nephropathy: no Neuropathy: no Last dental exam 2004 Last eye exam within 12 mo: Yes, 07/19 cataract surgery Past Medical History: Diagnosis Date Anxiety disorder Arthritis Asthma Bronchitis 09/2016 Cataract Chronic migraine Colon polyps COPD (chronic obstructive pulmonary disease) (HCC) Depression DM (diabetes mellitus) (HCC) Dyslipidemia Fibromyalgia Heart attack (HCC) Inflammatory bowel disease Kidney stones On supplemental oxygen therapy Peripheral neuropathy Ulcer of the stomach and intestine Past Surgical History: Procedure Laterality Date BACK SURGERY BLADDER SURGERY CARPAL TUNNEL RELEASE Bilateral COLON SURGERY CYSTOURETHROSCOPY HX APPENDECTOMY HX CHOLECYSTECTOMY HX HEART CATHETERIZATION HX HYSTERECTOMY HX SURGERY EDG HX TONSILLECTOMY NOSE SURGERY OOPHORECTOMY OTHER SURGICAL HISTORY lap neison URETHRAL STRICTURE DILATATION History reviewed. No pertinent family history. Social History Social History Marital status: Spouse name: N/A Number of children: N/A Years of education: N/A Occupational History Not on file. Social History Main Topics Smoking status: Never Smoker Smokeless tobacco: Never Used Alcohol use No Drug use: No Sexual activity: No Other Topics Concern Not on file Social History Narrative No narrative on file Labs: Comprehensive Metabolic Profile No results found for: NA, K, CL, CO2, GAP, BUN, CR, GLU No results found for: CA , PO4, ALBUMIN, TOTPROT, ALKPHOS, AST, ALT, TOTBILI, GFR, GFRAA No results found for: MCALB24 No results found for: URMALBCRRAT No results found for: MCALBR No results found for: CHOL, TRIG, HDL, LDL, VLDL, NONHDLCHOL, CHOLHDLC No results found for: TSH Hemoglobin A1C Date Value Ref Range Status 04/01/2017 9.9 (H) 4.0 - 6.0 % Final Comment: The ADA recommends that most patients with type 1 and type 2 diabetes maintain an A1c level <7%. 06/22/2016 9.0 (H) 4.0 - 6.0 % Final Comment: The ADA recommends that most patients with type 1 and type 2 diabetes maintain an A1c level <7%. No results found for: A1C No results found for: VITD25 Review of Systems Constitutional: Positive for fatigue. HENT: Positive for trouble swallowing. Eyes: Positive for visual disturbance. Respiratory: Positive for cough. Cardiovascular: Positive for palpitations and leg swelling. Gastrointestinal: Positive for abdominal pain. Heartburn Endocrine: Positive for polyuria. Genitourinary: Positive for frequency. Musculoskeletal: Positive for arthralgias, back pain, joint swelling and myalgias. Skin: Positive for rash. Neurological: Positive for dizziness, numbness and headaches. Memory loss and loss of balance Psychiatric/Behavioral: Positive for sleep disturbance. All other systems reviewed and are negative. Objective: amitriptyline (ELAVIL) 50 mg tablet Take 50 mg by mouth at bedtime daily. aspirin EC 81 mg tablet Take 81 mg by mouth daily. Take with food. busPIRone (BUSPAR) 5 mg tablet Take 5 mg by mouth three times daily. CIPROFLOXACIN HCL (CIPRO PO) Take by mouth. dulaglutide 0.75 mg/0.5 mL pnij Inject 0.75 Units under the skin. estradiol (ESTRACE) 0.01 % (0.1 mg/g) vaginal [...] needed for Nausea. Indications: takes 4-[address](+) (PRILOSEC) 40 mg capsule other medication Take 1 Dose by mouth as Needed. Medication Name & Strength : cough syrup Dose(how many):as directed Frequency(how often): prn Indications: could not remember name for cough with bronchitis pantoprazole DR (PROTONIX) 40 mg tablet Take 40 mg by mouth daily. pramipexole (MIRAPEX) 1 mg tablet Take 1 mg by mouth daily. propranolol (INDERAL) 40 mg tablet Take 60 mg by mouth twice daily. Vitals: 07/12/17 1007 BP: 123/81 Pulse: 64 Weight: 98 kg (216 lb) Height: 160 cm (63") Body mass index is 38.26 kg/m. Physical Exam Constitutional: She is oriented to person, place, and time. She appears well- developed and well-nourished. HENT: Head: Normocephalic and atraumatic. Eyes: Pupils are equal, round, and reactive to light. Wearing dark glasses due to her recent surgery Neck: Neck supple. No thyromegaly present. Cardiovascular: Normal heart sounds. Pulmonary/Chest: Effort normal and breath sounds normal. Abdominal: Soft. Neurological: She is alert and oriented to person, place, and time. Skin: Skin is warm and dry. Psychiatric: She has a normal mood and affect. Her behavior is normal. Vitals reviewed. declines foot exam, says she has seen registered dietitian this month Assessment and Plan: Diabetes mellitus type 2, uncontrolled A1c 9.2 in clinic today Target A1c 7.5 Currently on glimepiride 2 mg BID Complicated by: Retinopathy, Peripheral neuropathy, CAD, CVA Barriers to care: Limited finances and chronic pain Plan: Discussed basics of diabetes and goal to avoid glucose extremes to avoid further complications Check glucose daily, at various times of day Re-attempt metformin, in XR form, starting at low dose. If tolerating may advance gradually to full dose of 2 g daily Discussed that glimepiride may not be ideal med for her, with her sulfa allergy, inconsistent eating pattern and need for wt loss. Continue for now 2 mg BID, but may DC in the future. Restart Trulicity as this was helpful for her in the past and did not have worse GI symptoms when using. Samples provided, start Low dose 0.75 mg weekly x2 weeks, and may advance to full dose 1.5 mg if tolerating well. Advised to eat small portions, stand for 15 + min after meals, and report any GI distress. Pt also plans to check on cunningham of this med. Discussed that she likely will need insulin if not tolerating these meds, and that will be a possibility at her next visit. Instructed on rule of 15 for hypoglycemia, and provided magnet and sample bottles to fill with 15 g carb serving for emergencies Diabetic complication assessment: Annual Dilated eye exam: done in 2018 Annual labs (electrolytes and renal function): Reviewed, last done with PCP she reports Annual Urine microalbumin/Cr: done with her PCP Foot exam / monofilament exam (recommended annually): declines today as she has seen her registered dietitian this month Supportive care for diabetes: Window Shade Estimator (recommended annually): needed, ordered for August, and encouraged her to have her present for this meeting Commercial Loan Coordinator: needed Lipids: Hyperlipidemia Recommendations for Statin treatment in diabetes: <40 yo: No risk factors - no statin recommended. CVD risk factors - mod or high dose statin. Overt CVD - high dose statin. 40-75 yo: No risk factors - moderate dose statin. CVD risk factors or overt CVD - high dose statin. >75 yo: No risk factors - moderate dose statin. CVD risk factors - mod or high dose statin. Overt CVD - high dose statin. CVD risk factors include LDL cholesterol ?100 mg/dL (2.6 mmol/L), high blood pressure, smoking, and overweight and obesity Currently on a statin: no, Annual fasting lipid panel due: done with PCP pt reports Blood pressure: Hypertension Controlled UBALDO-I or ARB: No Urinary Pain Pt feels that she has a UTI, for past several days, has not discussed with her PCP or urology Ordered urine sample, will forward on to appropriate providers Total time 50 minutes. Estimated counseling time 30 minutes. Counseled patient regarding diabetes management. Orders Placed This Encounter CULTURE-URINE W/SENSITIVITY URINALYSIS, MICROSCOPIC BASIC METABOLIC PANEL POC HEMOGLOBIN A1C POC GLUCOSE QUANTITATIVE BLOOD metFORMIN-XR(+) (GLUCOPHAGE XR) 500 mg extended release tablet dulaglutide (TRULICITY) 1.5 mg/0.5 mL pnij Blood-Glucose Meter kit blood sugar diagnostic test strip lancets [facility] Patient Instructions Goals we discussed today: Take metformin XR 500 mg daily with your largest meal. Avoid eating fatty or fried foods. If you are tolerating well with no nausea or diarrhea, may increase dose weekly as below until you are taking full 2000 mg daily. 2nd week, 2 tabs daily 3rd week, 3 tabs daily 4th week and beyond, 4 tabs daily Do not split these tablets in 1/2. If difficult to swallow, take with applesauce or yogurt. Start Trulicity 0.75 mg weekly for first 2 weeks. If tolerating this may increase to 1.5 mg weekly. Continue glimepiride 2mg twice daily with meals Please contact [facility] for any questions or abnormal glucose values (above 300 or less than 70 repeatedly). [phone]. My nurse can be reached at [phone]. Health goals for a person with diabetes to avoid complications are: Check your FingerStick blood glucose: Each time you take medications for your glucose, goals are: Fasting and pre-meal glucose: 70-130 mg/dl, Bedtime blood glucose: 90-180 mg/dl LDL Cholesterol: <100 mg/dl, Triglycerides: <150 mg/dl, HDL >40 for men, >50 for women Blood pressure: Less than 130/90 mm HG Maintain a Healthy Weight , Exercise: 30 minutes 5 times per week Foot care: Take good care of your feet. Never cut your nails close to the tips of the toes. Promptly call your doctor if you have an infection, ulcer or cut anywhere on your feet. Wear shoes with a wide toe box and that fit comfortably. Avoid walking barefoot. Your recent lab values: No results found for: GLUPOC No results found for: CHOL, HDL, LDL No results found for: TRIG Diabetes Support Group Monthly DM Support Group facilitated by YANG. There is no fee or Registration required for attendance. Meets the first Saturday of each month from 6-7:30pm at the [facility], [address], [address], [place] [address]. [facility] Diabetes Classes and Education Opportunities To schedule Diabetes Education please call , Option 3 Contact your insurance company to determine coverage for diabetes education. Future Appointments Date Time Provider Department Center 08/05/2017 10:00 AM [facility] 09/30/2017 9:45 AM Mena Benavides MD [facility]OLGYCL [facility] Urology 11/13/2017 1:00 PM Calvin Tripp APRN [facility] IM in this encounter Plan of Treatment Not on fileas of this encounter Goals Patient Goal Type Goal Recent Progress Patient-Stat Author ed? Result Component HEMOGLOBIN A1C < 7.5 9.9 (04/01/2017 10:37 AM No COLLEEN Tripp) NAHEED Simpson as of this encounter Results * CULTURE-URINE W/SENSITIVITY (07/12/2017 11:51 AM) Component Value Ref Range Battery Name URINE CULTURE Specimen Description URINE, CLEAN CATCH Special Requests NONE Culture <10,000 organisms/ml MIXED CONTAMINANTS Report Status FINAL 07/13/2017 Specimen Performing Laboratory Urine - Urine,Clean Catch [facility] [address] [place] [address] * URINALYSIS, MICROSCOPIC (07/12/2017 11:50 AM) Component Value Ref Range WBCs,UA 10-20 0 - 2 /HPF RBCs,UA 0-2 0 - 3 /HPF MucousUA TRACE Bacteria,UA FEW (A) NEG-NEG Squamous Epithelial Cells 2-5 0 - 5 Specimen Performing Laboratory Urine [facility] [address] [place] [id number] * BASIC METABOLIC PANEL (07/12/2017 11:31 AM) Component Value Ref Range Sodium 138 137 - 147 MMOL/L Potassium 3.9 3.5 - 5.1 MMOL/L Chloride 100 98 - 110 MMOL/L CO2 31 (H) 21 - 30 MMOL/L Anion Gap 7 3 - 12 Glucose 176 (H) 70 - 100 MG/DL Blood Urea Nitrogen 15 7 - 25 MG/DL Creatinine 0.79 0.4 - 1.00 MG/DL Calcium 9.8 8.5 - 10.6 MG/DL eGFR Non >60 >60 mL/min Comment: The eGFR is not validated for use in drug dosing adjustments.Continue to use estimated creatinine clearance per dosing reference text.Please contact the Clinical Pharmacist for questions. eGFR >60 >60 mL/min Comment: The eGFR is not validated for use in drug dosing adjustments.Continue to use estimated creatinine clearance per dosing reference text.Please contact the Clinical Pharmacist for questions. Specimen Performing Laboratory Blood [facility] [address] [place] [id number] * POC GLUCOSE QUANTITATIVE BLOOD (07/12/2017) Component Value Ref Range Glucose, POC 180 Specimen Performing Laboratory Blood, capillary IN CLINIC * POC HEMOGLOBIN A1C (07/12/2017) Component Value Ref Range Poc Hemoglobin A1C 9.2 Specimen Performing Laboratory Blood, capillary - Blood IN CLINIC in this encounter Visit Diagnoses Diagnosis Uncontrolled type 2 diabetes mellitus with hyperglycemia, without long-term current use of insulin (HCC) - Primary Type 2 diabetes mellitus with hyperglycemia, without long-term current use of insulin (HCC) Pain with urination Renal colic
--- OUTSIDE RECORDS SUMMARY | 2017-07-15 18:05 | XMS REPORT | Encounter Summary ---
Author Author [facility] Organization [facility] Address Unknown Phone Unavailable Care Team Providers Care Business Employment Specialist Name Role Phone Belia Reid MD PCP Encounter Details Date Type Department Care Team Description 07/12/2017 [facility] Calvin Tripp APRN Type 2 diabetes mellitus Encounter [address] with hyperglycemia (HCC) [place] [address] [address] [place] [address] [phone] Social History Tobacco Use Types Packs/Day Years Used Date Never Smoker Smokeless Tobacco: Never Used Alcohol Use Drinks/Week oz/Week Comments No 0 Standard 0.0 drinks or equivalent Sex Assigned at Date Recorded Not on file as of this encounter Plan of Treatment Not on [...] Urine - Urine,Clean Catch [facility] [address] [place] [address] * URINALYSIS, MICROSCOPIC (07/12/2017 11:50 AM) Component Value Ref Range WBCs,UA 10-20 0 - 2 /HPF RBCs,UA 0-2 0 - 3 /HPF MucousUA TRACE Bacteria,UA FEW (A) NEG-NEG Squamous Epithelial Cells 2-5 0 - 5 Specimen Performing Laboratory Urine [facility] [address] [place] [address] * BASIC METABOLIC PANEL (07/12/2017 11:31 AM) [...] Specimen Performing Laboratory Blood [facility] [address] [place] [address] in this encounter Visit Diagnoses Diagnosis Uncontrolled type 2 diabetes mellitus with hyperglycemia, without long-term current use of insulin (HCC) Pain with urination Renal colic Admitting Diagnoses Diagnosis Type 2 diabetes mellitus with hyperglycemia (HCC) Type 2 diabetes mellitus with hyperglycemia
--- OUTSIDE RECORDS SUMMARY | 2017-07-15 18:05 | XMS REPORT | Clinical Summary ---
Author Author [facility] Organization [facility] Address Unknown Phone Unavailable Care Team Providers Care Trouble Lineman Name Role Phone Belia Reid MD PCP Source Comments Some departments are not documenting in the electronic medical record. If you do not see the information that you expected, contact Release of Information in the Health Information Management department at [phone] for further assistance in locating additional records.[facility] Allergies Active Allergy Reactions Severity Noted Date Comments Aspirin STOMACH UPSET, SEE Low 06/22/2016 Is ok to take 81mg asa COMMENTS Sumatriptan Succinate ANXIETY Low 06/22/2016 Penicillins RASH, ITCHING Medium 06/22/2016 Sulfa (Sulfonamide RASH, ITCHING Medium 06/22/2016 Antibiotics) Current Medications Prescription Sig. Disp. Refills Start End Date Status Date pantoprazole DR Take 40 mg by mouth Active (PROTONIX) 40 mg tablet daily. propranolol (INDERAL) 40 Take 60 mg by [...] 08/21/19 Active (PRILOSEC) 40 mg capsule 17 other Take 1 Dose by mouth as Active medicationIndications: Needed. Medication Name & could not remember name Strength: cough syrup for cough with bronchitis Dose(how many):as directed Frequency(how often): prn Indications: could not remember name for cough with bronchitis CIPROFLOXACIN HCL (CIPRO Take by mouth. Active PO) metFORMIN-XR(+) Take 4 tablets by mouth 360 tablet 3 07/13/19 Active (GLUCOPHAGE XR) 500 mg daily with dinner. 18 extended release tablet dulaglutide (TRULICITY) Inject 1.5 mg under the 12 Syringe 3 07/13/19 Active 1.5 mg/0.5 mL pnij skin every 7 days. 18 Blood-Glucose Meter kit Use as directed daily. 1 each 1 07/13/19 Active E11.65 Authorizing 18 physician: Dr. Say Carrillo, III Preferred meter by insurance blood sugar diagnostic Use 1 strip as directed 100 strip 3 07/13/19 Active test strip daily. 18 lancets MISC Use 1 each as directed 100 each 3 07/13/19 Active daily as needed. E11.65 18 Authorizing physician: Dr. Say Carrillo, III dulaglutide 0.75 mg/0.5 Inject 0.75 Units under 07/13/19 Discontin mL pnij the skin. 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 CT shows a 4.6 mm non-obstructing renal calculus. Hx of chronic back pain. Follows w/ Dr. Benavides for persistent LUTS. UDS shows large bladder capacity, adequate emptying, and +DO w/ leak. L ast Assessment & Plan: Per Dr Rascon - reba FU plan Recurrent UTI 06/22/2016 Overview: Recurrent UTIs 10/01/16: UDS which showed a large capacity, emptying, +DO with large leak L ast Assessment & Plan: Urine cultures with S&S HgbA1c today Referral to Endocrine to assist with DM management Fu 6 months Vaginal atrophy 06/22/2016 Overview: No history of breast cancer Not sexually active Vaginal irritation L ast Assessment & Plan: Continue Estrace cream 3 x weekly Encounters Date Type Specialty Care Team Description 07/12/2017 Hospital Lab Calvin Tripp APRN Type 2 diabetes mellitus Encounter with hyperglycemia (HCC) 07/12/2017 Office Visit Endocrinology, Metabolism Rafael Bergman PA-C Uncontrolled type 2 & Genetics Calvin Tripp APRN diabetes mellitus with hyperglycemia, without long-term current use of insulin (HCC) (Primary Dx); Type 2 diabetes mellitus with hyperglycemia, without long-term current use of insulin (HCC); Pain with urination from Last 3 Months Social History Tobacco [...] Mass Index 38.26 07/12/2017 10:07 AM CDT Plan of Treatment Health Maintenance Due Date Last Done Comments HEPATITIS C SCREENING 1946 PHYSICAL (COMPREHENSIVE) 1953 EXAM PERTUSSIS VACCINE 1957 TETANUS VACCINE 06/16/1963 DILATED EYE EXAM 1964 FOOT EXAM 1964 MICROALBUMIN 1964 BREAST CANCER SCREENING 1986 COLORECTAL CANCER 1996 SCREENING SHINGLES VACCINE 2006 OSTEOPOROSIS SCREENING 06/16/2011 PREVNAR/PNEUMOVAX (#1) 06/16/2011 INFLUENZA VACCINE 12/02/2017 HBA1C 01/12/2018 07/12/2017, 04/01/2017, 06/22/2016 Goals Patient Goal Type Goal Recent Progress Patient-Stat Author ed? Result Component HEMOGLOBIN A1C < 7.5 9.9 (04/01/2017 10:37 AM No COLLEEN Tripp) NAHEED Simpson Results * CULTURE-URINE W/SENSITIVITY (07/12/2017 11:51 AM) Component Value Ref Range Battery Name URINE CULTURE Specimen Description URINE, CLEAN CATCH Special Requests NONE Culture <10,000 organisms/ml MIXED CONTAMINANTS Report Status FINAL 07/13/2017 Specimen Performing Laboratory Urine - Urine,Clean Catch MAIN LAB [address] [place] [address] * URINALYSIS, MICROSCOPIC (07/12/2017 11:50 AM) Component Value Ref Range WBCs,UA 10-20 0 - 2 /HPF RBCs,UA 0-2 0 - 3 /HPF MucousUA TRACE Bacteria,UA FEW (A) NEG-NEG Squamous Epithelial Cells 2-5 0 - 5 Specimen Performing Laboratory Urine MAIN LAB [address] [place] [id number] * BASIC METABOLIC PANEL (07/12/2017 11:31 AM) [...] Pharmacist for questions. Specimen Performing Laboratory Blood MAIN LAB [address] [place] [id number] * POC GLUCOSE QUANTITATIVE BLOOD (07/12/2017) Component Value Ref Range Glucose, POC 180 Specimen Performing Laboratory Blood, capillary IN CLINIC * POC HEMOGLOBIN A1C (07/12/2017) Component Value Ref Range Poc Hemoglobin A1C 9.2 Specimen Performing Laboratory Blood, capillary - Blood IN CLINIC from Last 3 Months
[2017-07-15] MEDS ORDERED: DULA1.5P2 (19:08)
[2017-07-15] MEDS ORDERED: METF500T8 (19:08)
[2017-07-15 19:29] LABS: BILIRUBIN,URINE NEGATIVE (NEGATIVE); CLARITY,URINE CLEAR; COLOR,URINE YELLOW; GLUCOSE, URINE (UA) NEGATIVE (NEGATIVE); KETONES,URINE NEGATIVE (NEGATIVE); LEUKOCYTE ESTERASE ,URINE 3+ (NEGATIVE); NITRITE,URINE NEGATIVE (NEGATIVE); PH,URINE 7 (5-9); PROTEIN,URINE NEGATIVE (NEGATIVE); UROBILINOGEN,URINE NORMAL (NORMAL)
[2017-07-15 19:36] LABS: BACTERIA,URINE FEW /HPF
[2017-07-15 19:40] LABS: BASOPHILS # (AUTO) 0.1 10^3/uL (0.0-0.1); BASOPHILS % (AUTO) 1 % (0-10); EOSINOPHILS # (AUTO) 0.3 10^3/uL (0.0-0.3); EOSINOPHILS % (AUTO) 2 % (0-10); HEMATOCRIT 44 % (35-52); HEMOGLOBIN 14.6 G/DL (11.5-16.0); LYMPHOCYTES # (AUTO) 2.9 X 10^3 (1.0-4.0); LYMPHOCYTES % (AUTO) 25 % (12-44); MEAN CORPUSCULAR HEMOGLOBIN 30 PG (25-34); MEAN CORPUSCULAR HGB CONC 34 G/DL (32-36); MEAN CORPUSCULAR VOLUME 90 FL (80-99); MEAN PLATELET VOLUME 9.9 FL (7.4-10.4); MONOCYTES # (AUTO) 0.6 X 10^3 (0.0-1.0); MONOCYTES % (AUTO) 5 % (0-12); NEUTROPHILS % (AUTO) 67 % (42-75); PLATELET COUNT 299 10^3/uL (130-400); RED BLOOD COUNT 4.86 10^6/uL (4.35-5.85); RED CELL DISTRIBUTION WIDTH 12.9 % (10.0-14.5); WHITE BLOOD COUNT 11.8 10^3/uL (4.3-11.0)
--- NOTE | 2017-07-15 19:49 | Diagnostic Imaging Report ---
INDICATION: Lower respiratory infection PA and lateral chest There is a dual-chamber pacemaker. Heart size and pulmonary vascularity are normal. Lungs are clear. There are no effusions or pneumothoraces. IMPRESSION: Negative chest Dictated by: Dictated on workstation # [id number]
--- NOTE | 2017-07-15 19:49 | ED Cough/URI ---
General Chief Complaint: Cough/Cold/Flu Symptoms Stated Complaint: COUGHING, VOMITING LIQUIDS ONLY Nursing Triage Note: COUGH, VOMITTING Source: patient History of Present Illness Date Seen by Provider: July 15, 2017 Time Seen by Provider: 19:05 Initial Comments PT ARRIVES VIA POV C/O NON-PRODUCTIVE COUGH SINCE YESTERDAY--( BUT HAS A CHRONIC NON-PRODUCTIVE COUGH ) HAS HAD FEVER UP TO 100 STATES SHE COUGHS AND "CHOKES UNTIL I FEEL LIKE I ALMOST PASS OUT" HAS HISTORY OF COPD AND WEARS O2 AT HS AND PRN DURING THE DAY, HAS BEEN WEARING MOST OF THE DAY TODAY, STATES SHE ONLY FEELS SHORT OF BREATH WHEN SHE COUGHS HARD, BUT HAS CHRONIC SHORTNESS OF BREATH, ESPECIALLY WITH EXERTION, COUGHING. PT ALSO HAS NEBULIZER THAT SHE USES PRN--USED AT 1630 TODAY PT STATES SHE HAS HISTORY OF COUGHING WITH RETCHING--HAS BEEN MUCH WORSE IN THE PAST. STATES LAST YEAR SHE WAS HOSPITALIZED FOR 30 DAYS FOR "BRONCHITIS". NO CHEST PAIN NO SWELLING IN LEGS/FEET PT STATES THAT SHE HAS HAD A LAP CORNELIUS FUNDOPLICATION IN THE PAST, AND DOES NOT VOMIT, BUT HAS BEEN RETCHING UP LIQUID PT STATES SHE ATE BREAKFAST THIS AM--TOAST, EGGS, MENDOZA. SHORTLY AFTER THAT SHE BEGAN RETCHING LIQUID ( NOT FOOD) AND FEELS LIKE FOOD IS STUCK IN HER ESOPHAGUS. TRIED TO EAT RICE FOR LUNCH AND HAD 4 BITES AND BEGAN RETCHING LIQUIDS AGAIN ( NOT FOOD) NO ABDOMINAL PAIN NO ACTUAL NAUSEA PT IS DRINKING FLUIDS WITHOUT DIFFICULTY PT HAS HAD EGD'S AND DILATIONS OF ESOPHAGEAL STRICTURES IN THE PAST, BUT NOT FOR MANY YEARS, AND HAS NOT HAD AN EGD FOR A FEW YEARS--PER PT. HOWEVER ON REVIEW OF OLD RECORDS, PT HAD EGD/DILATION AND COLONOSCOPY 05/16/[address] CARSON AND HAS CHRONIC DYSPHAGIA, GERD, GASTRITIS WELL PT WITH MULTIPLE VISITS FOR VARIOUS COMPLAINTS PCP: DR. REVELES. SEEN BY WATCH TRAIN ASSEMBLER 3 WEEKS AGO FOR ROUTINE EXAM. REFERRED TO MEDICAL CLAIMS EXAMINER FOR YEAST INFECTION IN SKIN FOLDS OF PANNUS--GETTING BETTER Allergies and Home Medications Allergies Coded Allergies: hydromorphone (Verified Allergy, Mild, STRONG RASH, 06/08/16) Penicillins (Unverified Allergy, Unknown, Pt has received Cefepime & Ceftriaxone in the past w/o issue, 01/18/17) Sulfa (Sulfonamide Antibiotics) (Verified Allergy, Unknown, 06/08/16) aspirin (Verified Adverse Reaction, Mild, ASPIRIN SENSITIVE, 06/08/16) sumatriptan (Verified Adverse Reaction, Mild, PALPITATIONS, 06/08/16) Home Medications Amitriptyline HCl 50 Mg Tablet, 50 MG PO DAILY, (Reported) Benzonatate 100 Mg Capsule, 1-2 TAB PO TID Prescribed by: PETER ASHLEY on 07/15/172054 Buspirone HCl 5 Mg Tablet, 5 MG PO TID, (Reported) Glimepiride 4 Mg Tablet, 4 MG PO BID, (Reported) Levofloxacin 500 Mg Tablet, 500 MG PO DAILY Prescribed by: PETER ASHLEY on 07/15/172054 Lorazepam 0.5 Mg Tablet, 0.5 MG PO TID PRN for ANXIETY, (Reported) Methylprednisolone 4 Mg Tab.ds.pk, 4 MG PO UD Prescribed by: PETER ASHLEY on 07/15/172054 Omeprazole 40 Mg Capsule.dr, 40 MG PO BID, (Reported) Pramipexole Di-HCl 1 Mg Tablet, 1 MG PO DAILY, (Reported) Promethazine HCl/Codeine 118 Ml Syrup, 5 ML PO Q4H Prescribed by: PETER ASHLEY on 07/15/172054 Propranolol HCl 60 Mg Tablet, 60 MG PO BID, (Reported) Sucralfate 1 Gm/10 Ml Oral.susp, 1 GM PO QID AC AND HS Prescribed by: PETER ASHLEY on 07/15/172054 Patient Home Medication List Home Medication List Reviewed: Yes Review of Systems Constitutional: see HPI, fever EENTM: no symptoms reported Respiratory: see HPI, cough Cardiovascular: no symptoms reported Gastrointestinal: see HPI; No abdominal pain; vomiting Genitourinary: no symptoms reported Musculoskeletal: no symptoms reported Skin: see HPI Psychiatric/Neurological: No Symptoms Reported Hematologic/Lymphatic: No Symptoms Reported Immunological/Allergic: no symptoms reported Past Ikwloor-Fwklpv-Nmvbyh Hx Patient Social History Alcohol Use: Denies Use Recreational Drug Use: No Smoking Status: Never a Smoker 2nd Hand Smoke Exposure: Yes Recent Foreign Travel: No Contact w/Someone Who Travel: No Recent Infectious Disease Expo: No Recent Hopitalizations: No Immunizations Up To Date Tetanus Booster (TDap): Unknown PED Vaccines UTD: No Date of Pneumonia Vaccine: May 24, 2012 Date of Influenza Vaccine: Jan 25, 2016 Seasonal Allergies Seasonal Allergies: Yes Past Medical History Surgeries: Yes (CYSTS REMOVED FROM THE OVARY, BACK ; CORNELIUS FUNDOPLICATION; BILATERAL CATARACTS 06/2017; COLONOSCOPIES/POLYPECTOMIES/EGD'S AND DILATIONS-- LAST ONE 05/16/16) Abdominal, Appendectomy, Cardiac, Defibrillator, Gallbladder, Hysterectomy, Oophorectomy, Orthopedic, Pacemaker, Tonsillectomy Respiratory: Yes (COPD, wears oxygen AT HS AND PRN; CHRONIC DYSPNEA/OATES; CHRONIC NON-PRODUCTIVE COUGH) Asthma, Pneumonia, Chronic Bronchitis, Sleep Apnea, COPD Currently Using CPAP: No Currently Using BIPAP: No Cardiac: Yes (PACEMAKER/DEFIBRILLATOR) High Cholesterol, Irregular Heartbeat Neurological: Yes (PERIPHERAL NEUROPATHY) Headaches /Migraines, Neuropathy : No 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 Disorders: No Female 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 Disorders: Denies 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 History: Hysterectomy, Menopausal Sexually Transmitted Disease: No Genitourinary: Yes Kidney Infection, Bladder Infection, Kidney Stones, UTI-Chronic Gastrointestinal: Yes (S/P CORNELIUS FUNDOPLICATION; ESOPHAGEAL STRICTURES/ DILATIONS; DYSPHAGIA) Gastroesophageal Reflux, Diverticulosis, Hemorrhoids, Polyps, C-Diff, Hiatal Hernia, Ulcer, Gall Bladder Disease, Irritable Bowel Musculoskeletal: Yes (RESTLESS LEG SYNDROME) Degenerate Disk Disease, Arthritis, Fibromyalgia, Chronic Back Pain Endocrine: Yes Diabetes, Non-Insulin dep HEENT: Yes Cataract Loss of Vision: Denies Hearing Impairment: Denies Cancer: No Psychosocial: Yes Anxiety, Depression Integumentary: Yes (CANDIDAL INTERTRIGO) Pruritis Blood Disorders: No Adverse Reaction/Blood Tranf: No Family Medical History Alzheimer's disease 19 FATHER Cardiovascular disease 19 FATHER 19 MOTHER Completed stroke 19 MOTHER Hypertension 19 FATHER 19 MOTHER Myocardial infarction 19 FATHER 19 MOTHER No Family History of: Diabetes mellitus No Pertinent Family Hx Physical Exam Vital Signs Vital Signs - First Documented 07/15/17 18:55 Temp 98.4 Pulse 85 Resp 18 B/P (MAP) 145/88 (107) Pulse Ox 94 O2 Delivery Room Air Capillary Refill : Less Than 3 Seconds General Appearance: no apparent distress, other (WEARING DARK GLASSES. FREQUENT HARSH, DRY COUGH) Neck: normal inspection Respiratory: normal breath sounds, no respiratory distress, no accessory muscle use Cardiovascular: regular rate, rhythm, no edema, no JVD, no murmur Gastrointestinal: normal bowel sounds, non tender, soft, no organomegaly Extremities: normal inspection, no pedal edema, no calf tenderness, normal capillary refill Neurologic/Psychiatric: computing tutor II-XII nml as tested, no motor/sensory deficits, alert, normal mood/affect, oriented x 3 Skin: normal color, warm/dry Progress/Results/Core Measures Suspected Sepsis Recent Fever Within 48 Hours: No Infection Criteria Present: None New/Unexplained Altered Menta: No Sepsis Screen: No Definite Risk SIRS Temperature:98.4 Pulse: 85 Respiratory Rate: 18 Laboratory Tests 07/15/17 19:25: White Blood Count 11.8H Blood Pressure 145 /88 Mean: 107 Laboratory Tests 07/15/17 19:25: Creatinine 0.79, Platelet Count 299, Total Bilirubin 0.5 Results/Orders Lab Results Laboratory Tests Test 07/15/17 19:20 07/15/17 19:25 Range/Units Urine Color YELLOW Urine Clarity CLEAR Urine pH 7 5-9 Urine Specific Hope 1.010 L 1.016-1.022 Urine Protein NEGATIVE NEGATIVE Urine Glucose (UA) NEGATIVE NEGATIVE Urine Ketones NEGATIVE NEGATIVE Urine Nitrite NEGATIVE NEGATIVE Urine Bilirubin NEGATIVE NEGATIVE Urine Urobilinogen NORMAL NORMAL MG/DL Urine Leukocyte Esterase 3+ H NEGATIVE Urine RBC (Auto) NEGATIVE NEGATIVE Urine RBC NONE /HPF Urine WBC 10-25 H /HPF Urine Squamous Epithelial Cells 10-25 H /HPF Urine Crystals NONE /LPF Urine Bacteria FEW H /HPF Urine Casts NONE /LPF Urine Mucus NEGATIVE /LPF Urine Culture Indicated YES White Blood Count 11.8 H 4.3-11.0 10^3/uL Red Blood Count 4.86 4.35-5.85 10^6/uL Hemoglobin 14.6 11.5-16.0 G/DL Hematocrit 44 35-52 % Mean Corpuscular Volume 90 80-99 FL Mean Corpuscular Hemoglobin 30 25-34 PG Mean Corpuscular Hemoglobin Concent 34 32-36 G/DL Red Cell Distribution Width 12.9 10.0-14.5 % Platelet Count 299 130-400 10^3/uL Mean Platelet Volume 9.9 7.4-10.4 FL Neutrophils (%) (Auto) 67 42-75 % Lymphocytes (%) (Auto) 25 12-44 % Monocytes (%) (Auto) 5 0-12 % Eosinophils (%) (Auto) 2 0-10 % Basophils (%) (Auto) 1 0-10 % Neutrophils # (Auto) 8.0 H 1.8-7.8 X 10^3 Lymphocytes # (Auto) 2.9 1.0-4.0 X 10^3 Monocytes # (Auto) 0.6 0.0-1.0 X 10^3 Eosinophils # (Auto) 0.3 0.0-0.3 10^3/uL Basophils # (Auto) 0.1 0.0-0.1 10^3/uL Sodium Level 139 135-145 MMOL/L Potassium Level 4.0 3.6-5.0 MMOL/L Chloride Level 104 98-107 MMOL/L Carbon Dioxide Level 23 21-32 MMOL/L Anion Gap 12 5-14 MMOL/L Blood Urea Nitrogen 10 7-18 MG/DL Creatinine 0.79 0.60-1.30 MG/DL Estimat Glomerular Filtration Rate > 60 BUN/Creatinine Ratio 13 Glucose Level 146 H 70-105 MG/DL Calcium Level 9.5 8.5-10.1 MG/DL Total Bilirubin 0.5 0.1-1.0 MG/DL Aspartate Amino Transf (AST/SGOT) 32 5-34 U/L Alanine Aminotransferase (ALT/SGPT) 32 0-55 U/L Alkaline Phosphatase 109 40-136 U/L Total Protein 7.4 6.4-8.2 GM/DL Albumin 4.0 3.2-4.5 GM/DL My Orders Orders - GABIPETER K DO Saline Lock/Iv-Start (07/15/17 19:16) Monitor-Rhythm Ecg Trace Only (07/15/17 19:16) Cbc With Automated Diff (07/15/17 19:16) Comprehensive Metabolic Panel (07/15/17 19:16) Ua Culture If Indicated (07/15/17 19:16) Chest Pa/Lat (2 View) (07/15/17 19:16) Urine Culture (07/15/17 19:20) Ct Chest Wo (07/15/17 20:19) Methylprednisolone Sod Succ (Solu-Medrol (07/15/17 20:30) Levofloxacin Tablet (Levaquin Tablet) (07/15/17 21:00) Medications Given in ED Current Medications Medications Dose Ordered Sig/Alannah Route Start Time Stop Time Status Last Admin Dose Admin Methylprednisolone Sodium Succinate 125 mg ONCE ONCE IVP 07/15/17 20:30 07/15/17 20:31 DC 07/15/17 20:35 125 MG Vital Signs/I&O 07/15/17 07/15/17 07/15/17 18:55 18:55 20:05 Temp 98.4 Pulse 85 78 Resp 18 24 B/P (MAP) 145/88 (107) 143/99 (114) Pulse Ox 94 96 O2 Delivery Room Air Room Air Room Air Capillary Refill : Less Than 3 Seconds Blood Pressure Mean: 107 Progress Note : Progress Note PT STATES COUGH MEDICATIONS NEVER WORK--STATES LORAZEPAM IS THE ONLY THING THAT HELPS HER COUGH,BUT STATES SHE HASN'T HAD ANYTHING ELSE FOR COUGH "FOR YEARS" STATES SHE WOULD LIKE TO FOLLOW UP WITH DR. DYER FOR GERD SYMPTOMS AND POSSIBLE EGD Diagnostic Imaging Comments CXR--NO ACUTE PROCESS, PER RADIOLOGIST REPORT @ 1999 CT CHEST--NO ACUTE PROCESS, PER RADIOLOGIST REPORT @ 2046 Reviewed: Reviewed by Me Departure Impression Primary Impression: COPD exacerbation Additional Impressions: Chronic cough GERD WITH HX OF ESOPHAGEAL STRICTURE AND LAP CORNELIUS FUNDOPLICATIO Disposition: HOME, SELF-CARE Condition: Stable Departure-Patient Inst. Referrals: NANNETTE REVELES DO (PCP/Family) Primary Care Physician Patient Instructions: Acid Reflux (Gastroesophageal Reflux Disease), Adult (DC) , Exacerbation of COPD (DC) Add. Discharge Instructions: TAKE YOUR REGULAR MEDICATIONS PRESCRIBED USE YOUR OXYGEN NEEDED USE YOUR NEBULIZERS EVERY 4 [address]RS FOLLOW UP WITH DR. REVELES THIS WEEK FOR FURTHER CARE FOLLOW UP WITH DR. DYER FOR GERD SYMPTOMS All discharge instructions reviewed with patient and/or family. Voiced understanding. Scripts Sucralfate (Carafate) 1 Gm/10 Ml Oral.susp 1 GM PO QID AC AND HS, #400 ML Prov: GABI,PETER K DO 07/15/17 Benzonatate (Tessalon Perle) 100 Mg Capsule 1-2 TAB PO TID for Cough, #30 CAP Prov: GABI,PETER K DO 07/15/17 Promethazine HCl/Codeine (Promethazine-Codeine Syrup) 118 Ml Syrup 5 ML PO Q4H for Cough, #120 ML Prov: GABI,PETER K DO 07/15/17 Methylprednisolone (Medrol) 4 Mg Tab.ds.pk 4 MG PO UD, #1 PKG Prov: PETER ASHLEY DO 07/15/17 Levofloxacin (Levaquin) 500 Mg Tablet 500 MG PO DAILY for INFECTION, #10 TAB Prov: PETER ASHLEY DO 07/15/17 PETER ASHLEY DO July 15, 2017 19:49
[2017-07-15 20:05] VITALS: BP 143/99
[2017-07-15 20:05] LABS: ALANINE AMINOTRANSFERASE 32 U/L (0-55); ALKALINE PHOSPHATASE 109 U/L (40-136); BILIRUBIN,TOTAL 0.5 MG/DL (0.1-1.0); BUN/CREATININE RATIO 13; CALCIUM 9.5 MG/DL (8.5-10.1); CARBON DIOXIDE 23 MMOL/L (21-32); CHLORIDE 104 MMOL/L (98-107); CREATININE SERUM 0.79 MG/DL (0.60-1.30); GFR ESTIMATED > 60; GLUCOSE 146 MG/DL (70-105); SODIUM 139 MMOL/L (135-145); TOTAL PROTEIN 7.4 GM/DL (6.4-8.2)
[2017-07-15] MEDS ORDERED: methylPREDNISolone 125 MG (Solu-MEDROL) VIAL IVP ONE (20:30)
--- NOTE | 2017-07-15 20:37 | Diagnostic Imaging Report ---
PROCEDURE: CT chest without contrast. TECHNIQUE: Multiple contiguous axial images were obtained through the chest without the use of intravenous contrast. INDICATION: Cough and vomiting x2 days FINDINGS: The lungs are clear. There are no effusions or pneumothoraces. There is no hilar or mediastinal lymphadenopathy. The patient has a dual-chamber pacemaker. Upper abdominal viscera are unremarkable. IMPRESSION: Negative CT chest. Dictated by: Dictated on workstation # [id number]
[2017-07-15] MEDS ORDERED: LEVOFLOXACIN 500 MG TAB (LEVAQUIN) ONE (20:53)
[2017-07-15] MEDS ORDERED: LEVO500T2 PO (20:55)
[2017-07-15] MEDS ORDERED: CODE118S2 PO (20:55)
[2017-07-15] MEDS ORDERED: SUCR1ORA5 PO (20:55)
[2017-07-15] MEDS ORDERED: BENZ-13 PO (20:55)
[2017-07-15] MEDS ORDERED: METH4TAB PO (20:55)
[2017-07-15] MEDS ORDERED: LEVOFLOXACIN 500 MG TAB (LEVAQUIN) PO ONE (21:00)
[2017-07-15 21:04] VITALS: BP 102/83
== END 2017-07-15 21:04 | disposition home or self-care (01) ==
LOC: EDUNIT# 17:59 → ER 18:00
DX: J44.1 Chronic obstructive pulmonary disease with (acute) exacerbation (principal); K21.9 Gastro-esophageal reflux disease without esophagitis; G47.30 Sleep apnea, unspecified; E78.00 Pure hypercholesterolemia, unspecified; G43.909 Migraine, unspecified, not intractable, without status migrainosus; E11.42 Type 2 diabetes mellitus with diabetic polyneuropathy; F41.9 Anxiety disorder, unspecified; F32.9 Major depressive disorder, single episode, unspecified; Z87.448 Personal history of other diseases of urinary system; Z82.49 Family history of ischemic heart disease and other diseases of the circulatory system; Z87.440 Personal history of urinary (tract) infections; Z87.442 Personal history of urinary calculi; Z87.19 Personal history of other diseases of the digestive system; Z87.01 Personal history of pneumonia (recurrent); Z88.5 Allergy status to narcotic agent; Z88.0 Allergy status to penicillin; Z88.2 Allergy status to sulfonamides; Z88.6 Allergy status to analgesic agent; Z88.8 Allergy status to other drugs, medicaments and biological substances; Z79.84 Long term (current) use of oral hypoglycemic drugs; Z79.52 Long term (current) use of systemic steroids; Z77.22 Contact with and (suspected) exposure to environmental tobacco smoke (acute) (chronic); Z90.49 Acquired absence of other specified parts of digestive tract; Z95.810 Presence of automatic (implantable) cardiac defibrillator; Z90.710 Acquired absence of both cervix and uterus; Z95.0 Presence of cardiac pacemaker; Z90.89 Acquired absence of other organs
CPT/HCPCS: 36415; 71046; 71250; 80053; 81000; 85025; 87088; 93041; 96374

== ENCOUNTER → 2017-08-08 | Outpatient (CLI) | payer MEDICARE ==
[~2017-08-08] MED LIST changes: +CODE118S2 PO; +DULA1.5P2; +METF500T8; +SUCR1ORA5 PO
--- NOTE | 2017-08-08 12:32 | Diagnostic Imaging Report ---
DEXA scan. Indication: Screening for osteoporosis. The bone mineral density of the hips and spine was measured. There are no recent DEXA scans available for comparison. The T score for the spine is 0.0. The T score for left hip is 0.1, for the right hip -0.2. All of these values are within normal limits. Impression: The bone mineral density of the spine is within normal limits. Dictated by: Dictated on workstation # [id number]
--- NOTE | 2017-08-09 22:48 | Diagnostic Imaging Report ---
Digital mammogram bilateral screening with 3 D tomosynthesis. The current study was also evaluated with a Computer Aided Detection (CAD) system. This study was compared to the prior exam of 05/11/15 and 04/10/13. At this time, there are no current complaints. The asymmetric collection of fibroglandular tissue with the numerous microcalcifications in the upper-outer aspect of the right breast seen on the prior exams are again evident and no different. There are scattered fibroglandular densities in the left breast which could obscure a lesion. The pacemaker battery pack overlying the left pectoralis muscle seen previously is again visualized and no different. There is no primary or secondary sign of malignancy noted. IMPRESSION: There is no evidence for malignancy. ACR BI-RADS Category 1: Negative. Result letter will be mailed to the patient. Note: At least 10% of breast cancer is not imaged by mammography. Dictated by: Dictated on workstation # [id number]
== END ==
LOC: RAD 08:57
PROVIDERS: ATTEND Nurse Practitioner Family
DX: Z12.31 Encounter for screening mammogram for malignant neoplasm of breast (principal); Z13.820 Encounter for screening for osteoporosis
CPT/HCPCS: 77067; 77080

== ENCOUNTER 2017-08-16 08:07 | Day surgery (SDC) | payer MEDICARE ==
[~2017-08-16] VITALS: Ht 165.1 cm; Wt 98.0 kg
--- OUTSIDE RECORDS SUMMARY | 2017-08-16 08:33 | XMS REPORT | Clinical Summary ---
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 If you do not see the information that you expected, contact Release of Information in the Health Information Management department at [phone] for further assistance in locating additional records.[facility] Allergies Active Allergy Reactions Severity Noted Date [...] 18 Authorizing physician: Dr. 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 CT shows a 4.6 mm non-obstructing renal calculus. Hx of chronic back pain. Follows w/ Dr. Benavides for persistent LUTS. UDS shows large bladder capacity, adequate emptying, and +DO w/ leak. L ast Assessment & Plan: Per Dr Abiodun britton FU plan Recurrent UTI 06/22/2016 Overview: Recurrent [...] SCREENING SHINGLES VACCINE 2006 OSTEOPOROSIS SCREENING 06/16/2011 PNEUMONIA (PCV13/PPSV23) 06/16/2011 VACCINES (1 of 2 - PCV13) INFLUENZA VACCINE 12/02/2017 HBA1C 01/12/2018 07/12/2017, 04/01/2017, 06/22/2016 Goals Patient Goal Type Goal Recent Progress Patient-Stat Author ed? Result Component HEMOGLOBIN A1C < 7.5 9.9 (04/01/2017 10:37 AM No Josee, MOTOR VEHICLE ASSEMBLY SUPERVISOR) NAHEED Simpson Results * CULTURE-URINE W/SENSITIVITY (07/12/2017 11:51 AM) Component Value Ref Range Battery Name URINE CULTURE Specimen Description URINE, CLEAN CATCH Special Requests NONE Culture <10,000 organisms/ml MIXED CONTAMINANTS Report Status FINAL 07/13/2017 Specimen Performing Laboratory Urine - Urine,Clean Catch MAIN LAB [address] [place] [address] * URINALYSIS, MICROSCOPIC (07/12/2017 11:50 AM) Component Value Ref Range WBCs,UA 10-20 0 - 2 /HPF RBCs,UA 0-2 0 - 3 /HPF MucousUA TRACE Bacteria,UA FEW (A) NEG-NEG Squamous Epithelial Cells 2-5 0 - 5 Specimen Performing Laboratory Urine MAIN LAB [address] [place], [place] [id number] * BASIC METABOLIC PANEL (07/12/2017 11:31 AM) [...] questions. Specimen Performing Laboratory Blood MAIN LAB [address] [place] [id number] * POC GLUCOSE QUANTITATIVE BLOOD (07/12/2017) Component Value Ref Range Glucose, POC 180 Specimen Performing Laboratory Blood, capillary IN CLINIC * POC HEMOGLOBIN A1C (07/12/2017) Component Value Ref Range Poc Hemoglobin A1C 9.2 Specimen Performing Laboratory Blood, capillary - Blood IN CLINIC from Last 3 Months
--- OUTSIDE RECORDS SUMMARY | 2017-08-16 08:33 | XMS REPORT | Encounter Summary ---
Author Author [facility] Organization [facility] Address Unknown Phone Unavailable Care Team Providers Care Sleep Scientist Name Role Phone Belia Reid MD PCP Reason for Visit * Reason Comments Diabetes * Consult, Test & Treat (Urgent) Status Reason Specialty Diagnoses / Referred By Referred To Procedures Contact Contact No Auth Needed Specialty Endocrinology and Diagnoses Deisy Benavides Im Diabetes Services Diabetes Services Diabetes MD Mena 5TH FLOOR POD A Required / Endocrinology, mellitus of [address] Metabolism & other type with Blvd MED OFFICE BLDG Genetics complication, [place] [address] [place], [place] [address] term insulin use [id number] Phone: status [phone] Encounter Details Date Type Department Care Team Description 07/12/2017 Office Visit [facility] Rafael Bergman PA-C Uncontrolled type 2 Physicians - Internal [address] diabetes [place] [address] hyperglycemia, without 5TH FLOOR POD A [phone] long-term current use of [address] MED insulin (HCC) (Primary OFFICE BLDG D Dx); [place], [place] Calvin antoine APRN Type 2 diabetes mellitus [id number] with hyperglycemia, [place] [address] [place] [address] use of insulin (HCC); [phone] Pain with urination Social History Tobacco Use [...] 2mg twice daily with meals Please contact [facility] for any questions or abnormal glucose values (above 300 or less than 70 repeatedly). [phone]. My nurse can be reached at [phone]. Health goals for a person with diabetes [...] of each month from 6-7:30pm at the [facility], [address], [address], [place] [address]. [facility] Diabetes Classes and Education Opportunities To schedule Diabetes Education please call , Option 3 Contact your insurance company to determine coverage for diabetes education. in this encounter Progress Notes * Calvin Tripp, CLAM GRADER - 07/12/2017 10:00 AM CDT Formatting of this note may be different from the original. Date of Service: 07/12/2017 Subjective: Diana Gregory is a 72 y.o. female. History of Present Illness Pt presents to clinic for management of T2 DM. This is the initial appointment at [facility]. PCP is Dr. Reid in [place], [place]. Referred by urology as she has [...] defib placed internally after she had an AK during surgery for nasal septum surgery. She [...] due to pain Complications of DM: CAD: AK in 2010 during surgery for deviated septum [...] declines foot exam, says she has seen electronics instructor this month Assessment and Plan: Diabetes mellitus [...] declines today as she has seen her electronics instructor this month Supportive care for diabetes: Location And Measurement Technician (recommended annually): needed, ordered for August, and encouraged her to have her present for this meeting Processing Clerk: needed Lipids: Hyperlipidemia Recommendations for Statin treatment [...] kit blood sugar diagnostic test strip lancets [facility] Patient Instructions Goals we discussed today: Take [...] 2mg twice daily with meals Please contact [facility] for any questions or abnormal glucose values (above 300 or less than 70 repeatedly). [phone]. My nurse can be reached at [phone]. Health goals for a person with diabetes [...] 6-7:30pm at the [facility], [address], [address], [place] [address]. [facility] Diabetes Classes and Education Opportunities To schedule Diabetes Education please call , Option 3 Contact your insurance company to determine coverage for diabetes education. Future Appointments Date Time Provider Department Center 08/05/2017 10:00 AM Marlene Fan [facility] 09/30/2017 9:45 AM Mena Benavides MD UROLGYCL [...] Urine - Urine,Clean Catch [facility] [address] [place] [address] * URINALYSIS, MICROSCOPIC (07/12/2017 11:50 AM) Component Value Ref Range WBCs,UA 10-20 0 - 2 /HPF RBCs,UA 0-2 0 - 3 /HPF MucousUA TRACE Bacteria,UA FEW (A) NEG-NEG Squamous Epithelial Cells 2-5 0 - 5 Specimen Performing Laboratory Urine [facility] [address] [place] [id number] * BASIC METABOLIC PANEL (07/12/2017 11:31 AM) [...] Specimen Performing Laboratory Blood [facility] [address] [place] [address] * POC GLUCOSE QUANTITATIVE BLOOD (07/12/2017) Component [...]
--- OUTSIDE RECORDS SUMMARY | 2017-08-16 08:33 | XMS REPORT | Encounter Summary ---
Author Author [facility] Organization [facility] Address Unknown Phone Unavailable Care Team Providers Care Manager Skilled Name Role Phone Belia Reid MD PCP Encounter Details Date Type Department Care Team Description 07/12/2017 Hospital [facility] Calvin Tripp APRN Type 2 diabetes mellitus Encounter [address] with hyperglycemia (HCC) [place] [address] [place] [address] [place] [address] [phone] Social History Tobacco Use Types Packs/Day Years Used Date Never Smoker Smokeless Tobacco: Never Used Alcohol Use Drinks/Week oz/Week Comments No 0 Standard 0.0 drinks or equivalent Sex Assigned at Date Recorded Not on file as of this encounter Medications at Time of Discharge Medication Sig. Disp. Refills Start Date End Date amitriptyline (ELAVIL) 50 Take 50 mg by mouth at 08/20/2016 mg tablet bedtime daily. aspirin EC 81 mg tablet Take 81 mg by mouth daily. Take with food. blood sugar diagnostic Use 1 strip as directed 100 strip 3 07/12/2017 test strip daily. Blood-Glucose Meter kit Use as directed daily. 1 each 1 07/12/2017 E11.65 Authorizing physician: Dr. Say Carrillo, III Preferred meter by insurance busPIRone (BUSPAR) 5 mg Take 5 mg by mouth three tablet times daily. CIPROFLOXACIN HCL (CIPRO Take by mouth. PO) dulaglutide (TRULICITY) Inject 1.5 mg under the 12 Syringe 3 2017 1.5 mg/0.5 mL pnij skin every 7 days. estradiol (ESTRACE) 0.01 Insert or Apply to 42.5 g 11 06/22/2016 % (0.1 mg/g) vaginal vaginal area three times creamIndications: Vaginal weekly. Apply as atrophy directed, apply at bedtime fluticasone-salmeterol(+) Inhale 2 Puffs by mouth (ADVAIR HFA) 115-21 into the lungs twice mcg/actuation inhaler daily. glimepiride (AMARYL) 2 mg Take 2 mg by mouth daily tablet with breakfast. lancets MISC Use 1 each as directed 100 each 3 07/12/2017 daily as needed. E11.65 Authorizing physician: Dr. Say Carrillo, III LORazepam (ATIVAN) 0.5 mg Take 1 Tab by mouth every tabletIndications: takes 6 hours as needed for 4-5 prn Nausea. Indications: takes 4-5 prn metFORMIN-XR(+) Take 4 tablets by mouth 360 tablet 3 07/12/2017 (GLUCOPHAGE XR) 500 mg daily with dinner. extended release tablet omeprazole DR(+) 08/20/2016 (PRILOSEC) 40 mg capsule other Take 1 Dose by mouth as medicationIndications: Needed. Medication Name & could not remember name Strength: cough syrup for cough with bronchitis Dose(how many):as directed Frequency(how often): prn Indications: could not remember name for cough with bronchitis pantoprazole DR Take 40 mg by mouth (PROTONIX) 40 mg tablet daily. pramipexole (MIRAPEX) 1 Take 1 mg by mouth daily. mg tablet propranolol (INDERAL) 40 Take 60 mg by mouth twice mg tablet daily. as of this encounter Plan of Treatment [...] Laboratory Urine - Urine,Clean Catch [facility] [address] [place] [address] * URINALYSIS, MICROSCOPIC (07/12/2017 11:50 AM) Component Value Ref Range WBCs,UA 10-20 0 - 2 /HPF RBCs,UA 0-2 0 - 3 /HPF MucousUA TRACE Bacteria,UA FEW (A) NEG-NEG Squamous Epithelial Cells 2-5 0 - 5 Specimen Performing Laboratory Urine [facility] [address] [place] [address] * BASIC METABOLIC PANEL (07/12/2017 11:31 AM) [...] Performing Laboratory Blood [facility] [address] [place] [address] in this encounter Visit Diagnoses Diagnosis Uncontrolled type 2 diabetes mellitus with hyperglycemia, without long-term current use of insulin (HCC) Pain with urination Renal colic Admitting Diagnoses Diagnosis Type 2 diabetes mellitus with hyperglycemia (HCC) Type 2 diabetes mellitus with hyperglycemia
[2017-08-16] MEDS: TETRACAINE 0.5% OPHTH SOLN 4 ML BTL (SINGLE DOSE ONLY) OU PRN ×3 (08:35→08:55)
[2017-08-16] MEDS: TROPICAMIDE 1% OPH SOLN (MYDRIACYL) 15 ML BTL OU PRN ×3 (08:35→08:55)
[2017-08-16] MEDS: PHENYLEPHRINE 10% OPHTH (NEO-SYN) 5 ML BTL OU PRN ×3 (08:35→08:55)
--- NOTE | 2017-08-16 09:03 | Ophthalmology Operative Report ---
Pre-Operative Progress Note H&P Reviewed The H&P was reviewed, patient examined and no changes noted. Date H&P Reviewed: Aug 16, 2017 Time H&P Reviewed: 09:03 Pre-Op Dx Secondary Cataract, Bilateral Eyes ANGELES PAN MD Aug 16, 2017 09:03
--- NOTE | 2017-08-16 09:14 | Ophthalmology Operative Report ---
YAG Capsulotomy PREOPERATIVE DIAGNOSIS: Secondary Cataract Bilateral POSTOPERATIVE DIAGNOSIS: Secondary Cataract Bilateral PROCEDURE: YAG Capsulotomy, Bilateral SURGEON: Chago Pan ANESTHESIA: Topical anesthesia COMPLICATIONS: None ESTIMATED BLOOD LOSS: Minimal DESCRIPTION OF PROCEDURE: After proper informed consent was obtained, the patient's, a 72 female , received one drop of Tropicamide and one drop of Tetracaine in each eye. The patient was then placed at the YAG laser and using a power of [ 3.4] millijoules and bursts [ 16] right eye and [ 15] left eye were used to fashion a central capsulotomy. The patient tolerated the procedure well without complications and the patient's pressure was [ 12/13] shortly after the laser. CHAGO PAN MD Aug 16, 2017 09:14
[2017-08-16 09:15] VITALS: BP 130/69
[2017-08-16 10:02] VITALS: BP 130/69
== END 2017-08-16 09:15 | disposition home or self-care (01) ==
LOC: SDC 08:07
PROVIDERS: ATTEND Specialist
DX: H26.40 Unspecified secondary cataract (principal); E11.36 Type 2 diabetes mellitus with diabetic cataract; Z79.84 Long term (current) use of oral hypoglycemic drugs; Z79.899 Other long term (current) drug therapy

== ENCOUNTER 2017-09-20 14:45 | Emergency (ER) | payer MEDICARE ==
[~2017-09-20] VITALS: Ht 162.6 cm; Wt 98.0 kg
[~2017-09-20 14:45] MED LIST changes: -CODE118S2 PO; +CODE118S4 PO; -IPRA3AMP INH; -IPRA3AMP NEB; +IPRA3AMP31 INH; +IPRA3AMP31 NEB; -PIOG30TA26 PO; +PIOG30TA71 PO
[2017-09-20] MEDS ORDERED: KETOROLAC 60 MG/2 ML VIAL IM ONE (15:15)
[2017-09-20] MEDS ORDERED: PROCHLORPERAZINE 10 MG/2ML INJ (COMPAZINE) IM ONE (15:15)
[2017-09-20] MEDS ORDERED: diphenhydrAMINE 50 MG/ML INJ (BENADRYL) IM ONE (15:15)
[2017-09-20] MEDS ORDERED: PROMETHAZINE 25 MG (PHENERGAN) TAB PO ONE (15:15)
--- NOTE | 2017-09-20 16:05 | ED Headache ---
General Chief Complaint: General Problems/Pain Stated Complaint: MIGRAINE Nursing Triage Note: PATIENT STATES THAT SHE HAS HAD THIS PARTICULAR MIGRAINE X4 DAYS. SHE LIVES WITH MIGRAINES ALL THE TIME. SHE WAS UNABLE TO SLEEP LAST NIGHT AND SHE STATES IT IS AFFECTING HER TODAY. Nursing Sepsis Screen: No Definite Risk Source: patient Exam Limitations: no limitations History of Present Illness Date Seen by Provider: Sep 20, 2017 Time Seen by Provider: 14:00 Initial Comments Patient is a 72-year-old female who presents to the emergency room with complaints of a migraine for 4 days. She states that she always has migraines and this is very similar but it is affecting her sleeping this time. She has been seen multiple times in the emergency room for migraines in the past. She also reports nausea. Denies any dizziness, lightheadedness, visual difficulties. She states that she was seen at Dr. Reid's office 2 days ago but her headache was not bad enough to mention it to her. Timing/Duration: other (4 days) Severity/Quality: mild Location: global Prior Headaches/Recent Trauma: no recent headache/trauma, chronic headaches Modifying Factors: worse with exposure to light; improves with rest Associated Symptoms: nausea/vomiting Allergies and Home Medications Allergies Coded Allergies: hydromorphone (Verified Allergy, Mild, STRONG RASH, 06/08/16) Penicillins (Unverified Allergy, Unknown, Pt has received Cefepime & Ceftriaxone in the past w/o issue, 01/18/17) Sulfa (Sulfonamide Antibiotics) (Verified Allergy, Unknown, 06/08/16) aspirin (Verified Adverse Reaction, Mild, ASPIRIN SENSITIVE, 06/08/16) sumatriptan (Verified Adverse Reaction, Mild, PALPITATIONS, 06/08/16) Home Medications Amitriptyline HCl 50 Mg Tablet, 50 MG PO DAILY, (Reported) Benzonatate 100 Mg Capsule, 1-2 TAB PO TID Prescribed by: PETER ASHLEY on 07/15/172054 Buspirone HCl 5 Mg Tablet, 5 MG PO TID, (Reported) Glimepiride 4 Mg Tablet, 4 MG PO BID, (Reported) Levofloxacin 500 Mg Tablet, 500 MG PO DAILY Prescribed by: PETER ASHLEY on 07/15/172054 Lorazepam 0.5 Mg Tablet, 0.5 MG PO TID PRN for ANXIETY, (Reported) Methylprednisolone 4 Mg Tab.ds.pk, 4 MG PO UD Prescribed by: PETER ASHLEY on 07/15/172054 Omeprazole 40 Mg Capsule.dr, 40 MG PO BID, (Reported) Pramipexole Di-HCl 1 Mg Tablet, 1 MG PO DAILY, (Reported) Promethazine HCl/Codeine 118 Ml Syrup, 5 ML PO Q4H Prescribed by: PETER ASHLEY on 07/15/172054 Propranolol HCl 60 Mg Tablet, 60 MG PO BID, (Reported) Sucralfate 1 Gm/10 Ml Oral.susp, 1 GM PO QID AC AND HS Prescribed by: PETER ASHLEY on 07/15/172054 Patient Home Medication List Home Medication List Reviewed: Yes Review of Systems Constitutional: see HPI; No chills, No diaphoresis, No fever Eyes: See HPI; Denies Blindness, Denies Blurred Vision, Denies Pain; Photophobia; Denies Tunnel Vision, Denies Vision Changes, Denies Contact Lenses Cardiovascular: No edema, No Hx of Intervention Gastrointestinal: see HPI; No abdominal pain, No constipation, No diarrhea; nausea; No vomiting Genitourinary: No dysuria Psychiatric/Neurological: See HPI; Denies Anxiety, Denies Depressed, Denies Emotional Problems; Headache; Denies Numbness, Denies Paresthesia, Denies Pre- Existing Deficit, Denies Seizure All Other Systems Reviewed Negative Unless Noted: Yes Past Zrrwtqj-Uxaywb-Sscarg Hx Past Med/Social Hx: Reviewed Nursing Past Med/Soc Hx Patient Social History Alcohol Use: Denies Use Recreational Drug Use: No Smoking Status: Never a Smoker 2nd Hand Smoke Exposure: No Recent Foreign Travel: No Contact w/Someone Who Travel: No Recent Infectious Disease Expo: No Recent Hopitalizations: No Physical Abuse: No Sexual Abuse: No Immunizations Up To Date Tetanus Booster (TDap): Unknown PED Vaccines UTD: No Date of Pneumonia Vaccine: May 24, 2012 Date of Influenza Vaccine: Jan 25, 2016 Seasonal Allergies Seasonal Allergies: Yes Past Medical History Surgeries: Yes Abdominal, Appendectomy, Cardiac, Defibrillator, Gallbladder, Hysterectomy, Oophorectomy, Orthopedic, Pacemaker, Tonsillectomy Respiratory: Yes (COPD, wears oxygen AT HS AND PRN) Asthma, Pneumonia, Chronic Bronchitis, Sleep Apnea, COPD Currently Using CPAP: No Currently Using BIPAP: No Cardiac: Yes (PACEMAKER/DEFIBRILLATOR) High Cholesterol, Irregular Heartbeat Neurological: Yes (PERIPHERAL NEUROPATHY) Headaches /Migraines, Neuropathy 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 Disorders: No Female 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 Disorders: Denies 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: Hysterectomy, Menopausal Sexually Transmitted Disease: No Genitourinary: Yes Kidney Infection, Bladder Infection, Kidney Stones, UTI-Chronic Gastrointestinal: Yes (S/P OCRNELIUS FUNDOPLICATION; ESOPHAGEAL STRICTURES/ DILATIONS; DYSPHAGIA) Gastroesophageal Reflux, Diverticulosis, Hemorrhoids, Polyps, C-Diff, Hiatal Hernia, Ulcer, Gall Bladder Disease, Irritable Bowel Musculoskeletal: Yes (RESTLESS LEG SYNDROME) Degenerate Disk Disease, Arthritis, Fibromyalgia, Chronic Back Pain Endocrine: Yes Diabetes, Non-Insulin dep HEENT: Yes Cataract Loss of Vision: Denies Hearing Impairment: Denies Cancer: No Psychosocial: Yes Anxiety, Depression Nursing Suicide Risk Score: 0 Integumentary: Yes (CANDIDAL INTERTRIGO) Pruritis Blood Disorders: No Adverse Reaction/Blood Tranf: No Family Medical History Reviewed Nursing Family Hx Alzheimer's disease 19 FATHER Cardiovascular disease 19 FATHER 19 MOTHER Completed stroke 19 MOTHER Hypertension 19 FATHER 19 MOTHER Myocardial infarction 19 FATHER 19 MOTHER No Family History of: Diabetes mellitus No Pertinent Family Hx Physical Exam Vital Signs Vital Signs - First Documented 09/20/17 15:05 Temp 97.5 Pulse 91 Resp 20 B/P (MAP) 149/103 (118) Pulse Ox 94 O2 Delivery Room Air Capillary Refill : Less Than 3 Seconds Height, Weight, BMI Height: 5'4.00" Weight: 216lbs. 0oz. 97.173912cb; 37.1 BMI Method:Stated General Appearance: WD/WN, no apparent distress HEENT: PERRL/EOMI, normal ENT inspection, TMs normal, pharynx normal Cardiovascular: regular rate, rhythm, no edema, no gallop, no JVD, no murmur Respiratory: chest non-tender, lungs clear, normal breath sounds, no respiratory distress, no accessory muscle use Gastrointestinal: normal bowel sounds, non tender, soft, no organomegaly, no pulsatile mass Psychiatric: alert, oriented x 3 Crainal Nerves: normal hearing, normal speech, PERRL Coordination/Gait: normal finger to nose, normal gait Motor/Sensory: no motor deficit, no sensory deficit, no pronator drift Progress/Results/Core Measures Results/Orders My Orders Orders - RENO MELO Ketorolac Injection (Toradol Injection) (09/20/17 15:15) Prochlorperazine Injection (Compazine In (09/20/17 15:15) Diphenhydramine Injection (Benadryl Inje (09/20/17 15:15) Promethazine Tablet (Phenergan Tablet) (09/20/17 15:15) Medications Given in ED Vital Signs/I&O 09/20/17 09/20/17 15:05 17:00 Temp 97.5 97.5 Pulse 91 91 Resp 20 20 B/P (MAP) 149/103 (118) 149/103 (118) Pulse Ox 94 94 O2 Delivery Room Air Blood Pressure Mean: 118 Progress Progress Note : Progress Note Patient is feeling much better after medication administration. She reports relief of symptoms, nausea is completely gone. She reports feeling well enough to go home and rest. She agrees with plans of care, plans for discharge, and return precautions. Departure Impression Primary Impression: Migraine headache Disposition: 01 HOME, SELF-CARE Condition: Stable/Unchanged Departure-Patient Inst. Decision time for Depature: 16:55 Referrals: NANNETTE REID DO (PCP/Family) Primary Care Physician Patient Instructions: Migraine Headache (DC) Add. Discharge Instructions: Continue your home medication as directed. Follow-up with Dr. REID within 1 week for recheck. Return back to the emergency room for worsening symptoms such as headaches, blurred vision, nausea, vomiting or any other concerns as needed. All discharge instructions reviewed with patient and/or family. Voiced understanding. RENO MELO Sep 20, 2017 16:05
[2017-09-20 17:00] VITALS: BP 149/103
== END 2017-09-20 17:00 | disposition home or self-care (01) ==
LOC: EDUNIT# 14:45 → ER 14:47
DX: G43.909 Migraine, unspecified, not intractable, without status migrainosus (principal); J44.9 Chronic obstructive pulmonary disease, unspecified; G47.30 Sleep apnea, unspecified; E78.00 Pure hypercholesterolemia, unspecified; K21.9 Gastro-esophageal reflux disease without esophagitis; G25.81 Restless legs syndrome; E11.42 Type 2 diabetes mellitus with diabetic polyneuropathy; F41.9 Anxiety disorder, unspecified; F32.9 Major depressive disorder, single episode, unspecified; Z88.0 Allergy status to penicillin; Z87.440 Personal history of urinary (tract) infections; Z82.49 Family history of ischemic heart disease and other diseases of the circulatory system; Z87.19 Personal history of other diseases of the digestive system; Z87.448 Personal history of other diseases of urinary system; Z88.2 Allergy status to sulfonamides; Z88.6 Allergy status to analgesic agent; Z88.5 Allergy status to narcotic agent; Z88.8 Allergy status to other drugs, medicaments and biological substances; Z79.84 Long term (current) use of oral hypoglycemic drugs; Z90.89 Acquired absence of other organs; Z95.810 Presence of automatic (implantable) cardiac defibrillator; Z90.710 Acquired absence of both cervix and uterus; Z87.01 Personal history of pneumonia (recurrent)
CPT/HCPCS: 96372; 99284

== ENCOUNTER 2017-10-02 17:34 | Emergency (ER) | payer MEDICARE ==
[~2017-10-02] VITALS: Ht 165.1 cm; Wt 98.0 kg
[2017-10-02] MEDS ORDERED: ONDANSETRON 4 MG (ZOFRAN) ORAL DISSOLVE TAB PO ONE ×2 (18:30→19:00)
[2017-10-02] MEDS ORDERED: diphenhydrAMINE 50 MG/ML INJ (BENADRYL) IM ONE (18:30)
[2017-10-02] MEDS ORDERED: ORPHENADRINE 60 MG/2 ML (NORFLEX) AMP IM ONE (18:30)
[2017-10-02] MEDS ORDERED: KETOROLAC 30 MG/ML VIAL IM ONE (18:30)
--- NOTE | 2017-10-02 18:33 | ED Headache ---
General Chief Complaint: Head/Cervical Problems Stated Complaint: MIGRANE CAUSING CHEST PRESSURE Nursing Triage Note: AMBULATED TO ROOM 05 USING OWN CANE. STATES SHE HAS BEEN UNDER STRESS GETTING READY FOR HER SON TO COME HOME. COMPLAINS OF MIGRAINE X1 WEEK THAT IS CAUSING SOME NUMBESS IN HER RIGHT PINKY. Nursing Sepsis Screen: No Definite Risk Source: patient History of Present Illness Date Seen by Provider: Oct 02, 2017 Time Seen by Provider: 18:00 Initial Comments PT ARRIVES VIA POV FROM HOME C/O "MIGRAINE" X 1 1/2 WEEKS PAIN IS MOSTLY ON LEFT FRONTAL AND PARIETAL AREAS THIS IS A CHRONIC PROBLEM FOR MANY YEARS AND IS NOT DIFFERENT FROM HEADACHES SHE HAS HAD IN THE PAST STATES SHE NORMALLY GETS "3 OR 4 OR MORE" HEADACHES A WEEK, AND HAS HAD "4 OR 5 IN THE LAST 24 HOURS" AND ARE GRADUALLY GETTING WORSE NO NEW VISION CHANGES --HAS CHRONIC "FLOATERS" + NAUSEA ( MILD ), NO VOMITING--ALSO A CHRONIC PROBLEM STATES SHE HAS BEEN EATING AND DRINKING, BUT STATES "NOT DRINKING MUCH I SHOULD" "BEEN TO BUSY" --DRANK 2 GLASSES OF TEA, ROOT BEER AND A GLASS OF WATER TODAY ALSO C/O CHRONIC NECK PAIN--RIGHT > LEFT--SINCE CHILDHOOD ( STATES SHE HAD NECK INJURY CHILD ) RADIATES DOWN RIGHT ARM AND ALWAYS HAS NUMBNESS AND TINGLING IN FINGERS 3,4,5 WITH NUMBNESS IN TIP OF 5TH FINGER. THESE ISSUES ONGOING FOR MANY YEARS NO NEW INJURY PT STATES SHE HAS FIBROMYALGIA AND IT CAUSES NEUROPATHY, AND HAS BEEN UNDER ALOT OF STRESS--STATES SHE HAS BEEN "BUSY, BUSY, BUSY" --TRYING TO GET HOUSE READY FOR SON TO COME HOME--"TRYING TO MAKE ROOM FOR A COT FOR HIM TO SLEEP ON" STATES SHE HAS "BEEN DOING ALOT OF STUFF AROUND THE HOUSE THAT I'M NOT SUPPOSED TO BE DOING" PT GOES ON AT LENGTH ABOUT ALL HER CHRONIC SOMATIC COMPLAINTS, AND STATES THAT HER MUSCLE ACHES HAVE BEEN WORSE OVER THE LAST 1 1/2 WEEKS WELL--LEGS ACHE, ALL MUSCLES OF BODY ACHE. NONE OF THESE SYMPTOMS ARE DIFFERENT TODAY HAS NOT SOUGHT CARE UNTIL TODAY HAS NOT TAKEN A SINGLE THING FOR PAIN OR ANY OF HER OTHER COMPLAINTS--STATES SHE HAS NAUSEA MEDICATION AT HOME BUT HAS NOT TAKEN ANY AND DOES NOT KNOW NAME OF IT. PT WITH MULTIPLE VISITS FOR VARIOUS COMPLAINTS PCP: DR. ORENDER Allergies and Home Medications Allergies Coded Allergies: hydromorphone (Verified Allergy, Mild, STRONG RASH, 06/08/16) Penicillins (Unverified Allergy, Unknown, Pt has received Cefepime & Ceftriaxone in the past w/o issue, 01/18/17) Sulfa (Sulfonamide Antibiotics) (Verified Allergy, Unknown, 06/08/16) aspirin (Verified Adverse Reaction, Mild, ASPIRIN SENSITIVE, 06/08/16) sumatriptan (Verified Adverse Reaction, Mild, PALPITATIONS, 06/08/16) Home Medications Amitriptyline HCl 50 Mg Tablet, 50 MG PO DAILY, (Reported) Benzonatate 100 Mg Capsule, 1-2 TAB PO TID Prescribed by: PETER ASHLEY on 07/15/172054 Buspirone HCl 5 Mg Tablet, 5 MG PO TID, (Reported) Glimepiride 4 Mg Tablet, 4 MG PO BID, (Reported) Levofloxacin 500 Mg Tablet, 500 MG PO DAILY Prescribed by: PETER ASHLEY on 07/15/172054 Lorazepam 0.5 Mg Tablet, 0.5 MG PO TID PRN for ANXIETY, (Reported) Methocarbamol 500 Mg Tablet, 500 MG PO QID Prescribed by: PETER ASHLEY on 10/02/171858 Methylprednisolone 4 Mg Tab.ds.pk, 4 MG PO UD Prescribed by: PETER ASHLEY on 07/15/172054 Methylprednisolone 4 Mg Tab.ds.pk, 4 MG PO UD Prescribed by: PETER ASHLEY on 10/02/171858 Omeprazole 40 Mg Capsule.dr, 40 MG PO BID, (Reported) Ondansetron 4 Mg Tab.rapdis, 4 MG PO Q4H Prescribed by: PETER ASHLEY on 10/02/171858 Pramipexole Di-HCl 1 Mg Tablet, 1 MG PO DAILY, (Reported) Promethazine HCl/Codeine 118 Ml Syrup, 5 ML PO Q4H Prescribed by: PETER ASHLEY on 07/15/172054 Propranolol HCl 60 Mg Tablet, 60 MG PO BID, (Reported) Sucralfate 1 Gm/10 Ml Oral.susp, 1 GM PO QID AC AND HS Prescribed by: PETER ASHLEY on 07/15/172054 Patient Home Medication List Home Medication List Reviewed: Yes Review of Systems Constitutional: no symptoms reported Eyes: See HPI, Photophobia Ears, Nose, Mouth, Throat: no symptoms reported Respiratory: no symptoms reported (BUT HAS CHRONIC NON-PRODUCTIVE COUGH AND CHRONIC DYSPNEA, BUT NO COMPLAINTS TODAY OF THOSE SYMPTOMS) Cardiovascular: no symptoms reported Gastrointestinal: see HPI; No abdominal pain, No loss of appetite; nausea; No vomiting Genitourinary: no symptoms reported Musculoskeletal: see HPI Skin: no symptoms reported Psychiatric/Neurological: See HPI Past Ogjlvhv-Ofnjrh-Wsnswe Hx Patient Social History Alcohol Use: Denies Use Recreational Drug Use: No Smoking Status: Never a Smoker 2nd Hand Smoke Exposure: Yes Recent Foreign Travel: No Contact w/Someone Who Travel: No Recent Infectious Disease Expo: No Recent Hopitalizations: No Immunizations Up To Date Tetanus Booster (TDap): Unknown PED Vaccines UTD: No Date of Pneumonia Vaccine: May 24, 2012 Date of Influenza Vaccine: Jan 25, 2016 Seasonal Allergies Seasonal Allergies: Yes Past Medical History Surgeries: Yes (CYSTS REMOVED FROM OVARY AND BACK: CORNELIUS FUNDOPLICATION; EGD'S /COLONOSCOPIES/ESOPHAGEAL DILATIONS/POLYPECTOMIES; BILATERAL CATARACTS AND YAG PROCEDURE) Abdominal, Appendectomy, Cardiac, Defibrillator, Gallbladder, Hysterectomy, Oophorectomy, Orthopedic, Pacemaker, Tonsillectomy Respiratory: Yes (COPD, wears oxygen AT HS AND PRN) Asthma, Pneumonia, Chronic Bronchitis, Sleep Apnea, COPD Currently Using CPAP: No Currently Using BIPAP: No Cardiac: Yes (PACEMAKER/DEFIBRILLATOR) High Cholesterol, Irregular Heartbeat Neurological: Yes (PERIPHERAL NEUROPATHY) Headaches /Migraines, Neuropathy 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 Disorders: No Female 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 Disorders: Denies NURSING SPECIALIST History: Hysterectomy, Menopausal Sexually Transmitted Disease: No Genitourinary: Yes Kidney Infection, Bladder Infection, Kidney Stones, UTI-Chronic Gastrointestinal: Yes (S/P CORNELIUS FUNDOPLICATION; ESOPHAGEAL STRICTURES/ DILATIONS; DYSPHAGIA) Gastroesophageal Reflux, Diverticulosis, Hemorrhoids, Polyps, C-Diff, Hiatal Hernia, Ulcer, Gall Bladder Disease, Irritable Bowel Musculoskeletal: Yes (RESTLESS LEG SYNDROME; CHRONIC NECK PAIN WITH RADICULOPATHY--RIGHT > LEFT) Degenerate Disk Disease, Arthritis, Fibromyalgia, Chronic Back Pain Endocrine: Yes Diabetes, Non-Insulin dep HEENT: Yes Cataract Loss of Vision: Denies Hearing Impairment: Denies Cancer: No Psychosocial: Yes Anxiety, Depression Integumentary: Yes (CANDIDAL INTERTRIGO) Pruritis Blood Disorders: No Adverse Reaction/Blood Tranf: No Family Medical History Alzheimer's disease 19 FATHER Cardiovascular disease 19 FATHER 19 MOTHER Completed stroke 19 MOTHER Hypertension 19 FATHER 19 MOTHER Myocardial infarction 19 FATHER 19 MOTHER No Family History of: Diabetes mellitus Physical Exam Vital Signs Vital Signs - First Documented 10/02/17 17:40 Temp 98.0 Pulse 72 Resp 16 B/P (MAP) 193/108 (136) Pulse Ox 98 O2 Delivery Room Air Capillary Refill : Less Than 3 Seconds Height, Weight, BMI Height: 5'5.00" Weight: 216lbs. 0oz. 97.117109wl; 37.1 BMI Method:Stated General Appearance: WD/WN, no apparent distress, other (WEARING DARK GLASSES) HEENT: PERRL/EOMI, normal ENT inspection, TMs normal, pharynx normal Neck: full range of motion, tender lateral (BILATERAL CERVICAL PARAVERTEBRAL AND TRAPEZIUS MUSCLE TENDERNESS AND MILD SPASM--RIGHT > LEFT) Cardiovascular: regular rate, rhythm, no edema, no JVD, no murmur Respiratory: normal breath sounds, no respiratory distress, no accessory muscle use Gastrointestinal: soft Back: no CVA tenderness Extremities: normal inspection, no pedal edema, normal capillary refill Psychiatric: alert, oriented x 3 Crainal Nerves: normal hearing, normal speech, PERRL Coordination/Gait: normal gait Motor/Sensory: no motor deficit, no sensory deficit, no pronator drift Skin: normal color, warm/dry Progress/Results/Core Measures Results/Orders My Orders Orders - PETER ASHLEY DO Ondansetron Oral Dissolve Tab (Zofran (10/02/17 19:00) Medications Given in ED Current Medications Medications Dose Ordered Sig/Alannah Route Start Time Stop Time Status Last Admin Dose Admin Diphenhydramine HCl 50 mg ONCE ONCE IM 10/02/17 18:30 10/02/17 18:31 DC 10/02/17 18:31 50 MG Ketorolac Tromethamine 30 mg ONCE ONCE IM 10/02/17 18:30 10/02/17 18:31 DC 10/02/17 18:31 30 MG Ondansetron HCl 4 mg ONCE ONCE PO 10/02/17 18:30 10/02/17 18:31 DC 10/02/17 18:30 4 MG Ondansetron HCl 4 mg ONCE ONCE PO 10/02/17 19:00 10/02/17 19:01 DC 10/02/17 19:03 4 MG Orphenadrine Citrate 60 mg ONCE ONCE IM 10/02/17 18:30 10/02/17 18:31 DC 10/02/17 18:31 60 MG Vital Signs/I&O 10/02/17 10/02/17 17:40 19:05 Temp 98.0 98.0 Pulse 72 72 Resp 16 16 B/P (MAP) 193/108 (136) 166/98 (136) Pulse Ox 98 98 O2 Delivery Room Air Blood Pressure Mean: 136 Progress Progress Note : Progress Note SYMPTOMS IMPROVED AT DISMISSAL Departure Impression Primary Impression: Chronic headaches Additional Impression: CHRONIC NECK PAIN WITH RADICULOPATHY Disposition: HOME, SELF-CARE Condition: Stable Departure-Patient Inst. Referrals: NANNETTE REVELES DO (PCP/Family) Primary Care Physician Patient Instructions: Headache, Adult (DC), Chronic Neck Pain (DC) Add. Discharge Instructions: TAKE YOUR MEDICATIONS PRESCRIBED FOLLOW UP WITH YOUR DR THIS WEEK FOR FURTHER CARE All discharge instructions reviewed with patient and/or family. Voiced understanding. Scripts Methocarbamol (Robaxin) 500 Mg Tablet 500 MG PO QID for Muscle Spasms, #20 TAB Prov: PETER ASHLEY DO 10/02/17 Methylprednisolone (Medrol) 4 Mg Tab.ds.pk 4 MG PO UD, #1 PKG Prov: PETER ASHLEY DO 10/02/17 Ondansetron (Zofran Odt) 4 Mg Tab.rapdis 4 MG PO Q4H for Nausea/Vomiting, #10 TAB Prov: PETER ASHLEY DO 10/02/17 PETER ASHLEY DO Oct 02, 2017 18:33
[2017-10-02] MEDS ORDERED: METH500T PO (18:59)
[2017-10-02] MEDS ORDERED: ONDA4TAB8 PO (18:59)
[2017-10-02] MEDS ORDERED: METH4TAB PO (18:59)
[2017-10-02 19:05] VITALS: BP 166/98
== END 2017-10-02 19:05 | disposition home or self-care (01) ==
LOC: EDUNIT# 17:34 → ER 17:35
DX: R51 Headache (principal); M54.12 Radiculopathy, cervical region; G89.29 Other chronic pain; J44.9 Chronic obstructive pulmonary disease, unspecified; G47.30 Sleep apnea, unspecified; E78.00 Pure hypercholesterolemia, unspecified; E11.42 Type 2 diabetes mellitus with diabetic polyneuropathy; F41.9 Anxiety disorder, unspecified; F32.9 Major depressive disorder, single episode, unspecified; K21.9 Gastro-esophageal reflux disease without esophagitis; Z87.19 Personal history of other diseases of the digestive system; Z86.010 Personal history of colon polyps; Z87.442 Personal history of urinary calculi; Z87.01 Personal history of pneumonia (recurrent); Z88.5 Allergy status to narcotic agent; Z86.19 Personal history of other infectious and parasitic diseases; Z82.49 Family history of ischemic heart disease and other diseases of the circulatory system; Z88.0 Allergy status to penicillin; Z88.6 Allergy status to analgesic agent; Z88.2 Allergy status to sulfonamides; Z88.8 Allergy status to other drugs, medicaments and biological substances; Z79.84 Long term (current) use of oral hypoglycemic drugs; Z79.52 Long term (current) use of systemic steroids; Z87.448 Personal history of other diseases of urinary system; Z90.89 Acquired absence of other organs; Z95.810 Presence of automatic (implantable) cardiac defibrillator; Z90.710 Acquired absence of both cervix and uterus; Z95.0 Presence of cardiac pacemaker
CPT/HCPCS: 93005; 96372

== ENCOUNTER 2017-10-16 07:10 | Emergency (ER) | payer MEDICARE ==
[~2017-10-16] VITALS: Ht 165.1 cm; Wt 97.1 kg
[~2017-10-16 07:10] MED LIST changes: +METH500T PO
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
--- OUTSIDE RECORDS SUMMARY | 2017-10-16 07:17 | XMS REPORT | Encounter Summary ---
Author Author [facility] Organization [facility] Address Unknown Phone Unavailable Care Team Providers Care City Designer Name Role Phone Belia Reid MD PCP Reason for Referral * Consultation (Routine) Status Reason Specialty Diagnoses / Referred By Referred To Procedures Contact Contact Closed Specialty Endocrinology, Diagnoses Calvin Tripp [facility] Metabolism & Type 2 diabetes LIVING SUPERVISOR Ortho and Medical Required Genetics mellitus with [address] hyperglycemia, [address] without [address] [place] [address] [place] [address] Phone: insulin (HCC) [phone] Reason for Visit * Reason Comments Diabetes Encounter Details Date Type Department Care Team Description 08/26/2017 Clinical [facility] Marlene Fan Type 2 diabetes mellitus Support Physicians - Internal [address] with hyperglycemia, [place] [address] without long-term current Ortho and Medical [phone] use of insulin (HCC) [address] (Primary Dx) [address] [place] [address] Social History Tobacco Use Types Packs/Day Years Used Date Never Smoker Smokeless Tobacco: Never Used Alcohol Use Drinks/Week oz/Week Comments No 0 Standard 0.0 drinks or equivalent Sex Assigned at Date Recorded Not on file as of this encounter Instructions * Patient Instructions - Marlene Fan - 08/26/2017 10:00 AM CDT Diana, It was wonderful meeting with you today! Setting goals is a great way to stay on track with managing your Diabetes! Here are a few goals we discussed this appointment: 1. Chair exercises 3x weekly for 15 minutes. 2. Increase water intake. Aim for 64 oz daily (4-5 water bottles) 3. Keep carbohydrates consistent at each meal. 4. Take time for yourself daily. 15-30 minutes of quiet time, relaxing, and doing something you enjoy. I hope you get a sleep study done to get higher quality of sleep, and more than just 2-3 hours. Please don't hesitate to reach out if you have any questions or concerns. I am here to support you! Best Regards, Marlene Fan MS, RD, LD Production Repairer [facility] Diabetes Self-Management [email or web address] in this encounter Progress Notes * Marlene Fan - 08/26/2017 10:00 AM CDT Formatting of this note may be different from the original. Diabetes Self-Management Education Assessment Reason for consult: New DM education Diabetes Management Mid-Level Provider: Tip Tripp APRN Referring Provider: Tip Tripp APRN Diabetes Hx Type of Diabetes: Type 2 Date of Diagnosis: ~2012 Results for DIANA GREGORY ( ) as of 08/27/2017 09:08 Ref. Range 07/12/2017 00:00 Poc Hemoglobin A1C Unknown 9.2 Vitals 07/12/2017 WEIGHT 216 HEIGHT 5' 3" Medication Comment: Metformin XR 500mg 4x daily with meals; Trulicity 1.5mg once weekly; Glimepiride 2mg daily Pt. Missing Doses of Diabetes Meds: Yes (Missing Metformin because she is scared of GI side effects) BG Monitoring Frequency: Average 0.7 checks daily Source: Downloaded Range per Meter: 100-407 mg/dL Hypoglycemia Hypoglycemia frequency and severity (<70 mg/dL): No Hypoglycemia Unawareness?: No Treatment of Hypoglycemia: Jelly Beans Hypoglycemia comment: Below target 0% of the time per meter download Hyperglycemia Hyperglycemia comment: Above target 82% of the time per meter download Typical diet: Breakfast AM Snacks Lunch PM Snacks Dinner Evening 1 sausage biscuit 2 pieces of toast Hot dog Bread pudding 2 chocolate kisses Diet Comments: Reports having limited resources to purchase healthy foods. Has to be very creative with what they have in their home until next paycheck. Eats high carb because they are the cheapest foods and they fill her up. Does pt count carbohydrates?: No Type, Frequency, Duration of Exercise: Leg stretches 3-4x per week. Will start doing chair exercises while watching TV Barriers to Treatment: Financial, Knowledge Specific Areas of Concern Today: Finding ways to eat healthy and balanced meals with the resources available, stress management Education Concerns Identified: Diana is a 72 y.o. female with T2DM, here for new DM education with her of 50 yearsKarel. HbA1c 9.2%. Intervention Learners Present: Patient, Significant Other Education Type: 1 on 1 Outpatient DSME Education provided: Disease Process: Natural Course of Diabetes (2) Carbohydrate Counting: Estimating portion sizes, Fiber, How nutrients affect BG , Plate Model, Timing of meals (1) Healthy Eating: Increase fruits/vegetables, Plate model (1) Physical Activity: Options for exercise (2) Medications: Mechanism of other DM medicaitions, Importance of compliance (1) Blood Glucose Monitoring: Frequency, Personal targets (1) Acute Complications: Hyperglycemia: Causes and prevention, Drink Fluids, Signs and symptoms (1) Acute Complications: Hypoglycemia: Causes and prevention, Rule of 15, Signs and symptoms (2) Chronic Complications: Development and prevention (2) Psychosocial Adjustment: Effect of stress on BG, Social support (1) Pre-session assessment shown in parentheses following content area assessed 1=needs improvement 2=needs review 3=comprehends boyd points 4=demonstrates understanding NC=not covered N/A=not applicable Medication Plan: Continue Metformin XR 500mg 4x daily, Trulicity 1.5mg once weekly, and Glimepiride 2mg daily. Take Metformin consistently with meals to help prevent GI complications BG Monitoring Plan: Check blood sugars at least daily or twice daily Diet Plan: Plan ahead your meals for the day. Try to keep carbohydrates the same amount at each meal. Increase protein and vegetables to help you feel full longer Exercise Plan: Great job doing leg stretches. Try adding in chair exercises 2-3 nights weekly Diabetes Self-Management Support Plan: Attend PCP and Diabetes provider appointments regularly, Return for f/u with educator Diabetes Program Outcome Monitoring and Evaluation: A1C Patient-Selected Behavior Change Objective Area: Nutritional Management/Healthy Eating Patient-Selected Behavior Change Goal: Increase water intake and keep carbohydrates consistent at each meal Patient-Selected Behavior Change Goal Baseline 0% Time in: 10:20 Time out: 12:00 Monitoring and Evaluation Follow-up: 6-8 months or HECTORN Marlene Fan MS, RD, LD Production Repairer [facility] Diabetes Self-Management [email or web address] in this encounter Plan of Treatment Name Priority Associated Diagnoses Order Schedule AMB REFERRAL TO DIABETIC EDUCATION Routine Type 2 diabetes mellitus Ordered: 08/27/2017 with hyperglycemia, without long-term current use of insulin (HCC) as of this encounter Goals Patient Goal Type Goal Recent Progress Patient-Stat Author ed? Result Component HEMOGLOBIN A1C < 7.5 9.9 (04/01/2017 10:37 AM No COLLEEN Tripp) NAHEED Simpson as of this encounter Visit Diagnoses Diagnosis Type 2 diabetes mellitus with hyperglycemia, without long-term current use of insulin (HCC) - Primary
--- OUTSIDE RECORDS SUMMARY | 2017-10-16 07:17 | XMS REPORT | Clinical Summary ---
Author Author [facility] Organization [facility] Address Unknown Phone Unavailable Care Team Providers Care Crepe Machine Operator Name Role Phone Belia Reid MD PCP Source Comments Some departments are not documenting in the electronic medical record. If you do not see the information that you expected, contact Release of Information in the Health Information Management department at [phone] for further assistance in locating additional records.[facility] Allergies Active Allergy Reactions Severity Noted Date Comments Aspirin STOMACH UPSET, SEE Low 06/22/2016 Is ok to take 81mg asa COMMENTS Sumatriptan Succinate ANXIETY Low 06/22/2016 Penicillins RASH, ITCHING Medium 06/22/2016 Sulfa (Sulfonamide RASH, ITCHING Medium 06/22/2016 Antibiotics) Current Medications Prescription Sig. Disp. Refills Start End Date Status Date propranolol (INDERAL) 40 Take 60 mg by mouth twice Active mg tablet daily. pramipexole (MIRAPEX) 1 Take 1 mg by mouth daily. Active mg tablet busPIRone (BUSPAR) 5 mg Take 5 mg by mouth three Active tablet times daily. LORazepam (ATIVAN) 0.5 mg Take 1 Tab [...] Apply as atrophy directed, apply at bedtime omeprazole DR(+) 08/21/19 Active (PRILOSEC) 40 mg capsule 17 other Take 1 Dose by mouth as Active medicationIndications: Needed. Medication Name & could not remember name Strength: cough syrup for cough with bronchitis Dose(how many):as directed Frequency(how often): prn Indications: could not remember name for cough with bronchitis metFORMIN-XR(+) Take 4 tablets by mouth 360 tablet 3 07/13/19 Active (GLUCOPHAGE XR) 500 mg daily with dinner. 18 extended release tablet Blood-Glucose Meter kit Use as directed daily. [...] 18 Authorizing physician: Dr. Say Carrillo, III glimepiride (AMARYL) 4 mg 06/25/19 Active tablet [address] Take 40 mg by mouth 10/01/19 Discontin (PROTONIX) 40 mg tablet daily. 18 ued fluticasone-salmeterol(+) Inhale 2 Puffs by mouth 10/01/19 Discontin (ADVAIR HFA) 115-21 into the lungs twice 18 ued mcg/actuation inhaler daily. glimepiride (AMARYL) 2 mg Take 2 mg by mouth daily 10/01/19 Discontin tablet with breakfast. 18 ued amitriptyline (ELAVIL) 50 Take 50 mg by mouth at 08/21/19 10/01/19 Discontin mg tablet bedtime daily. 17 18 ued CIPROFLOXACIN HCL (CIPRO Take by mouth. 10/01/19 Discontin PO) 18 ued dulaglutide (TRULICITY) Inject 1.5 mg under the 12 Syringe 3 07/13/19 10/01/19 Discontin 1.5 mg/0.5 mL pnij skin every 7 days. 18 18 ued Active Problems Problem Noted Date [...] residuals recently Kidney stones 08/24/2016 Overview: -- 08/14/17: Charging Machine Operator evaluation non-obstructing stone. CT shows a 4.6 mm non-obstructing renal calculus. Hx of chronic back pain. Follows w/ Dr. Benavides for persistent LUTS. UDS shows large bladder capacity, adequate emptying, and +DO w/ leak. L ast Assessment & Plan: Per Dr Rascon - keep FU plan Recurrent UTI 06/22/2016 Overview: Recurrent UTIs, frequency, urgency 10/01/16: UDS which showed a large capacity, emptying, +DO with large leak Non-compliance with estrace, cic, anticholinergic and DM control L ast Assessment & Plan: - emphasized need for DM control - needs compliance with reduction caffeine and excess fluid intake - needs compliance with estrace - restart anticholinergic and cic - rtc 6 monhths Vaginal atrophy 06/22/2016 Overview: No history of breast cancer Not sexually active Vaginal irritation L ast Assessment & Plan: Continue Estrace cream 3 x weekly Encounters Date Type Specialty Care Team Description 09/30/2017 Office Visit Urology Mena Benavides MD Recurrent UTI ( Primary Dx) 09/12/2017 Orders Only Endocrinology, Metabolism Marlene Fan & Genetics 08/26/2017 Clinical Endocrinology, Metabolism Marlene Fan Type 2 diabetes mellitus Support & Genetics with hyperglycemia, without long-term current use of insulin (HCC) (Primary Dx) from Last 3 Months Social History Tobacco [...] Mass Index 38.48 09/30/2017 10:18 AM CDT Plan of Treatment Health Maintenance Due Date Last Done Comments HEPATITIS C SCREENING 1945 PHYSICAL (COMPREHENSIVE) 1953 EXAM PERTUSSIS VACCINE 1957 TETANUS VACCINE 06/16/1963 DILATED EYE EXAM 1964 FOOT EXAM 1964 MICROALBUMIN 1964 BREAST CANCER SCREENING 1986 COLORECTAL CANCER 1996 SCREENING SHINGLES RECOMBINANT 1996 VACCINE (1 of 2) OSTEOPOROSIS SCREENING 06/16/2011 PNEUMONIA (PCV13/PPSV23) 06/16/2011 VACCINES (1 of 2 - PCV13) INFLUENZA VACCINE 12/02/2017 HBA1C 01/12/2018 07/12/2017, 04/01/2017, 06/22/2016 Goals Patient Goal Type Goal Recent Progress Patient-Stat Author ed? Result Component HEMOGLOBIN A1C < 7.5 9.9 (04/01/2017 10:37 AM No Josee, COLLEEN) NAHEED Simpson Procedures Procedure Name Priority Date/Time Associated Diagnosis Comments GLUCOSE METER DOWNLOAD Routine 08/26/2017 12:00 AM CDT from Last 3 Months Results * POC URINE DIPSTICK MANUAL READ (09/30/2017) Urine Glucose POC 500 IN CLINIC Urine Bilirubin POC Neg IN CLINIC Urine Ketone POC Neg IN CLINIC Urine Specific [place] 1.015 IN CLINIC POC Urine Blood POC Neg IN CLINIC Urine PH POC 6.0 IN CLINIC Urine Protein POC Neg IN CLINIC Urine Urobilinogen POC Neg IN CLINIC Urine Nitrite POC Neg IN CLINIC Urine Leukocytes POC Neg IN CLINIC Color,UA Yellow IN CLINIC Turbidity,UA Cloudy IN CLINIC Specimen Urine - Urine Performing Organization Address City/State/Zipcode Phone Number IN CLINIC * GLUCOSE METER DOWNLOAD (08/26/2017) Narrative Performed At Performing Organization Address City/State/Zipcode Phone Number IN CLINIC from Last 3 Months
--- OUTSIDE RECORDS SUMMARY | 2017-10-16 07:17 | XMS REPORT | Encounter Summary ---
Author Author [facility] Organization [facility] Address Unknown Phone Unavailable Care Team Providers Care Master Carpenter Name Role Phone Belia Reid MD PCP Encounter Details Date Type Department Care Team Description 09/12/2017 Orders Only [facility] Marlene Fan Physicians - Internal [address] [place] [id number] Ortho and Medical [phone] [address] [place] [address] Social History Tobacco Use Types [...] < 7.5 9.9 (04/01/2017 10:37 AM No IRMA Tripp APRN as of this encounter Procedures Procedure Name Priority Date/Time Associated Diagnosis Comments GLUCOSE METER DOWNLOAD Routine 08/26/2017 12:00 AM CDT in this encounter Visit Diagnoses Not on filein this encounter
--- NOTE | 2017-10-16 07:24 | ED Respiratory ---
General Stated Complaint: sob Source: patient Exam Limitations: no limitations History of Present Illness Date Seen by Provider: Oct 16, 2017 Time Seen by Provider: 07:11 Initial Comments The patient presents to ER by private conveyance with her significant other and chief complaint that since yesterday she been having increasing shortness of breath productive cough, feeling fevers subjectively and she says her had the same thing a few days ago. She does wear oxygen as needed by nasal cannula 2 L concentrator as well as has a history of COPD but has never smoked cigarettes. She does not take any of her inhalers because she says the co-pay is too high. She does not have Tylenol Motrin. She does not have a history of coronary artery disease however she started having some chest pain last night on the right side of her chest that hurts worse with palpation or deep inspiration and coughing. She is diabetic but does not have any thyroid or hypercholesterolemia. Allergies and Home Medications Allergies Coded Allergies: milk (Verified Allergy, Intermediate, 10/16/17) hydromorphone (Verified Allergy, Mild, STRONG RASH, 06/08/16) Penicillins (Unverified Allergy, Unknown, Pt has received Cefepime & Ceftriaxone in the past w/o issue, 01/18/17) Sulfa (Sulfonamide Antibiotics) (Verified Allergy, Unknown, 06/08/16) aspirin (Verified Adverse Reaction, Mild, ASPIRIN SENSITIVE, 06/08/16) sumatriptan (Verified Adverse Reaction, Mild, PALPITATIONS, 06/08/16) Uncoded Allergies: EGG WHITES (Allergy, Unknown, 10/16/17) Home Medications Amitriptyline HCl 50 Mg Tablet, 50 MG PO DAILY, (Reported) Benzonatate 100 Mg Capsule, 1-2 TAB PO TID Prescribed by: PETER ASHLEY on 07/15/172054 Buspirone HCl 5 Mg Tablet, 5 MG PO TID, (Reported) Glimepiride 4 Mg Tablet, 4 MG PO BID, (Reported) Levofloxacin 500 Mg Tablet, 500 MG PO DAILY Prescribed by: PETER ASHLEY on 07/15/172054 Lorazepam 0.5 Mg Tablet, 0.5 MG PO TID PRN for ANXIETY, (Reported) Methocarbamol 500 Mg Tablet, 500 MG PO QID Prescribed by: PETER ASHLEY on 10/02/171858 Methylprednisolone 4 Mg Tab.ds.pk, 4 MG PO UD Prescribed by: PETER ASHLEY on 07/15/172054 Methylprednisolone 4 Mg Tab.ds.pk, 4 MG PO UD Prescribed by: PETER ASHLEY on 10/02/171858 Omeprazole 40 Mg Capsule.dr, 40 MG PO BID, (Reported) Ondansetron 4 Mg Tab.rapdis, 4 MG PO Q4H Prescribed by: PETER ASHLEY on 10/02/171858 Pramipexole Di-HCl 1 Mg Tablet, 1 MG PO DAILY, (Reported) Promethazine HCl/Codeine 118 Ml Syrup, 5 ML PO Q4H Prescribed by: PETER ASHLEY on 07/15/172054 Propranolol HCl 60 Mg Tablet, 60 MG PO BID, (Reported) Sucralfate 1 Gm/10 Ml Oral.susp, 1 GM PO QID AC AND HS Prescribed by: PETER ASHLEY on 07/15/172054 Patient Home Medication List Home Medication List Reviewed: Yes Review of Systems Constitutional: chills; No diaphoresis; fever, malaise, weakness EENTM: No ear discharge, No ear pain, No eye pain Respiratory: cough, phlegm, short of breath, wheezing Cardiovascular: see HPI, chest pain; No edema, No Hx of Intervention, No palpitations, No syncope Gastrointestinal: No abdominal pain, No constipation, No diarrhea, No nausea Genitourinary: No discharge, No dysuria Musculoskeletal: No back pain, No joint pain Past Spwfnpd-Jbifpf-Fhryzm Hx Patient Social History Alcohol Use: Denies Use Recreational Drug Use: No Smoking Status: Never a Smoker 2nd Hand Smoke Exposure: Yes Recent Foreign Travel: No Contact w/Someone Who Travel: No Recent Hopitalizations: No Immunizations Up To Date Tetanus Booster (TDap): Unknown PED Vaccines UTD: No Date of Pneumonia Vaccine: May 24, 2012 Date of Influenza Vaccine: Jan 25, 2016 Seasonal Allergies Seasonal Allergies: Yes Past Medical History Surgeries: Yes Abdominal, Appendectomy, Cardiac, Defibrillator, Gallbladder, Hysterectomy, Oophorectomy, Orthopedic, Pacemaker, Tonsillectomy Respiratory: Yes (COPD, wears oxygen AT HS AND PRN) Asthma, Pneumonia, Chronic Bronchitis, Sleep Apnea, COPD Currently Using CPAP: No Currently Using BIPAP: No Cardiac: Yes (PACEMAKER/DEFIBRILLATOR) High Cholesterol, Irregular Heartbeat Neurological: Yes (PERIPHERAL NEUROPATHY) Headaches /Migraines, Neuropathy 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 Disorders: No Female 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 Disorders: Denies 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, Menopausal Sexually Transmitted Disease: No Genitourinary: Yes Kidney Infection, Bladder Infection, Kidney Stones, UTI-Chronic Gastrointestinal: Yes (S/P CORNELIUS FUNDOPLICATION; ESOPHAGEAL STRICTURES/ DILATIONS; DYSPHAGIA) Gastroesophageal Reflux, Diverticulosis, Hemorrhoids, Polyps, C-Diff, Hiatal Hernia, Ulcer, Gall Bladder Disease, Irritable Bowel Musculoskeletal: Yes (RESTLESS LEG SYNDROME; CHRONIC NECK PAIN WITH RADICULOPATHY--RIGHT > LEFT) Degenerate Disk Disease, Arthritis, Fibromyalgia, Chronic Back Pain Endocrine: Yes Diabetes, Non-Insulin dep HEENT: Yes Cataract Loss of Vision: Denies Hearing Impairment: Denies Cancer: No Psychosocial: Yes Anxiety, Depression Integumentary: Yes (CANDIDAL INTERTRIGO) Pruritis Blood Disorders: No Adverse Reaction/Blood Tranf: No Family Medical History Alzheimer's disease 19 FATHER Cardiovascular disease 19 FATHER 19 MOTHER Completed stroke 19 MOTHER Hypertension 19 FATHER 19 MOTHER Myocardial infarction 19 FATHER 19 MOTHER No Family History of: Diabetes mellitus Physical Exam Vital Signs - First Documented 10/16/17 10/16/17 07:13 07:31 Temp 98.3 Pulse 86 Resp 26 B/P (MAP) 165/91 (115) Pulse Ox 96 O2 Delivery Nasal Cannula O2 Flow Rate 2.00 Capillary Refill : Height: 5'5.00" Weight: 216lbs. 0oz. 97.160428uj; 37.1 BMI Method:Stated General Appearance: moderate distress Eyes: Bilateral Eye Normal Inspection, Bilateral Eye PERRL, Bilateral Eye EOMI HEENT: PERRL/EOMI, normal ENT inspection, TMs normal, pharynx normal Neck: non-tender, full range of motion Respiratory: respiratory distress (mild to mod), accessory muscle use, rales ( dylan), wheezing, other (chest tender to palpation.) Cardiovascular: normal peripheral pulses, regular rate, rhythm Gastrointestinal: normal bowel sounds, non tender, soft Extremities: normal range of motion, non-tender, normal inspection, no pedal edema, normal capillary refill Neurologic/Psychiatric: alert, oriented x 3, other (anxious affect) Focused Exam Lactate Level 10/16/17 07:30: Lactic Acid Level 2.57*H 10/16/17 09:30: Lactic Acid Level 3.35*H Lactic Acid Level Laboratory Tests Test 10/16/17 07:30 10/16/17 09:30 Lactic Acid Level 2.57 MMOL/L (0.50-2.00) *H 3.35 MMOL/L (0.50-2.00) *H Progress/Results/Core Measures Suspected Sepsis SIRS Temperature: Pulse: Respiratory Rate: Laboratory Tests 10/16/17 07:30: White Blood Count 20.4H Blood Pressure / Mean: 10/16/17 07:30: Lactic Acid Level 2.57*H 10/16/17 09:30: Lactic Acid Level 3.35*H Laboratory Tests 10/16/17 07:30: Creatinine 0.85, INR Comment 0.9, Platelet Count 341, Total Bilirubin 0.7 Results/Orders Lab Results Laboratory Tests Test 10/16/17 07:30 10/16/17 07:33 10/16/17 08:20 10/16/17 09:30 Range/Units White Blood Count 20.4 H 4.3-11.0 10^3/uL Red Blood Count 4.76 4.35-5.85 10^6/uL Hemoglobin 14.5 11.5-16.0 G/DL Hematocrit 43 35-52 % Mean Corpuscular Volume 91 80-99 FL Mean Corpuscular Hemoglobin 31 25-34 PG Mean Corpuscular Hemoglobin Concent 33 32-36 G/DL Red Cell Distribution Width 13.2 10.0-14.5 % Platelet Count 341 130-400 10^3/uL Mean Platelet Volume 9.9 7.4-10.4 FL Neutrophils (%) (Auto) 89 H 42-75 % Lymphocytes (%) (Auto) 7 L 12-44 % Monocytes (%) (Auto) 4 0-12 % Eosinophils (%) (Auto) 0 0-10 % Basophils (%) (Auto) 0 0-10 % Neutrophils # (Auto) 18.0 H 1.8-7.8 X 10^3 Lymphocytes # (Auto) 1.3 1.0-4.0 X 10^3 Monocytes # (Auto) 0.9 0.0-1.0 X 10^3 Eosinophils # (Auto) 0.1 0.0-0.3 10^3/uL Basophils # (Auto) 0.1 0.0-0.1 10^3/uL Neutrophils % (Manual) 87 % Lymphocytes % (Manual) 4 % Monocytes % (Manual) 1 % Eosinophils % (Manual) 0 % Basophils % (Manual) 1 % Band Neutrophils 3 % Reactive Lymphocytes 4 % Poikilocytosis SLIGHT Stomatocytes SLIGHT Elliptocytes SLIGHT Rouleau SLIGHT Prothrombin Time 12.5 12.2-14.7 SEC INR Comment 0.9 0.8-1.4 Activated Partial Thromboplast Time 20 L 24-35 SEC Sodium Level 135 135-145 MMOL/L Potassium Level 4.3 3.6-5.0 MMOL/L Chloride Level 98 98-107 MMOL/L Carbon Dioxide Level 24 21-32 MMOL/L Anion Gap 13 5-14 MMOL/L Blood Urea Nitrogen 10 7-18 MG/DL Creatinine 0.85 0.60-1.30 MG/DL Estimat Glomerular Filtration Rate > 60 BUN/Creatinine Ratio 12 Glucose Level 345 H 70-105 MG/DL Lactic Acid Level 2.57 *H 3.35 *H 0.50-2.00 MMOL/L Calcium Level 9.8 8.5-10.1 MG/DL Corrected Calcium 9.6 8.5-10.1 MG/DL Total Bilirubin 0.7 0.1-1.0 MG/DL Aspartate Amino Transf (AST/SGOT) 29 5-34 U/L Alanine Aminotransferase (ALT/SGPT) 36 0-55 U/L Alkaline Phosphatase 110 40-136 U/L Troponin I < 0.30 <0.30 NG/ML Total Protein 7.7 6.4-8.2 GM/DL Albumin 4.2 3.2-4.5 GM/DL Glucometer 321 H 70-110 MG/DL Urine Color YELLOW Urine Clarity CLEAR Urine pH 5 5-9 Urine Specific Roby 1.020 1.016-1.022 Urine Protein 1+ H NEGATIVE Urine Glucose (UA) 4+ H NEGATIVE Urine Ketones 2+ H NEGATIVE Urine Nitrite NEGATIVE NEGATIVE Urine Bilirubin NEGATIVE NEGATIVE Urine Urobilinogen NORMAL NORMAL MG/DL Urine Leukocyte Esterase 2+ H NEGATIVE Urine RBC (Auto) NEGATIVE NEGATIVE Urine RBC NONE /HPF Urine WBC 5-10 H /HPF Urine Squamous Epithelial Cells 0-2 /HPF Urine Renal Epithelial Cells NONE /HPF Urine Crystals NONE /LPF Urine Bacteria TRACE /HPF Urine Casts NONE /LPF Urine Mucus NEGATIVE /LPF Urine Culture Indicated YES Test 10/16/17 09:52 Range/Units Glucometer 280 H 70-110 MG/DL My Orders Orders - ISRAEL ODELL Cbc With Automated Diff (10/16/17 07:16) Comprehensive Metabolic Panel (10/16/17 07:16) Blood Culture (10/16/17 07:16) Sputum Culture (10/16/17 07:16) Urinalysis (10/16/17 07:16) Urine Culture (10/16/17 07:16) Protime With Inr (10/16/17 07:16) Partial Thromboplastin Time (10/16/17 07:16) Saline Lock/Iv-Start (10/16/17 07:16) Saline Lock/Iv-Start (10/16/17 07:16) Ekg Tracing (10/16/17 07:16) Troponin I (10/16/17 07:16) Vital Signs Adult Sepsis Patie Q15M (10/16/17 07:16) O2 (10/16/17 07:16) Remove Rings In Anticipation O (10/16/17 07:16) Lactic Acid Analyzer (10/16/17 07:16) Ns Iv 1000 Ml (Sodium Chloride 0.9%) (10/16/17 07:16) Ceftriaxone Injection (Rocephin Injectio (10/16/17 07:30) Albuterol/Ipra Inhalation Soln (Duoneb I (10/16/17 07:30) Chest Pa/Lat (2 View) (10/16/17 07:24) Svn Small Volume Nebulizer (10/16/17 07:24) Albuterol Pre-Mix Nebs (Rt) (Proventil (10/16/17 07:41) Manual Differential (10/16/17 07:30) Saline Lock/Iv-Start (10/16/17 08:07) Ns Iv 1000 Ml (Sodium Chloride 0.9%) (10/16/17 08:07) Cho 60g/M 1snack (16-2000 Juan) (10/16/17 Breakfast) Insulin (Regular) Human (Humulin R (Per (10/16/17 08:45) Azithromycin Injection (Zithromax Inject (10/16/17 08:45) Accucheck Stat ONCE (10/16/17 09:42) Albuterol Pre-Mix Nebs (Rt) (Proventil (10/16/17 09:44) Medications Given in ED Current Medications Medications Dose Ordered Sig/Alannah Route Start Time Stop Time Status Last Admin Dose Admin Albuterol/ Ipratropium 3 ml ONCE ONCE INH 10/16/17 07:30 10/16/17 07:31 DC 10/16/17 07:28 3 ML Azithromycin 500 mg/Sodium Chloride 250 ml @ 250 mls/hr ONCE ONCE IV 10/16/17 08:45 10/16/17 09:44 DC 10/16/17 09:00 250 MLS/HR Ceftriaxone Sodium 1000 mg/ Sodium Chloride 50 ml @ 100 mls/hr ONCE ONCE IV 10/16/17 07:30 10/16/17 07:59 DC 10/16/17 08:03 100 MLS/HR Insulin Human Regular 9 unit ONCE ONCE SC 10/16/17 08:45 10/16/17 08:46 DC 10/16/17 09:15 9 UNIT Vital Signs/I&O 10/16/17 10/16/17 10/16/17 10/16/17 07:13 07:28 07:31 07:54 Temp 98.3 Pulse 86 Resp 26 B/P (MAP) 165/91 (115) Pulse Ox 96 97 96 96 O2 Delivery Nasal Cannula Nasal Cannula Nasal Cannula Nasal Cannula O2 Flow Rate 2.00 2.00 2.00 2.00 10/16/17 10/16/17 09:15 10:38 Temp 98.3 98.4 Pulse 83 Resp 22 B/P (MAP) 146/85 Pulse Ox 95 O2 Delivery Nasal Cannula O2 Flow Rate 2.00 Capillary Refill : Progress Note #1: Time: 07:23 Progress Note Respiratory rate around 30 and oxygen saturation 91% so we put her on 2 L by nasal cannula brought her oxygen sats up to mid 90s. She has adventitious lung sounds so we gave her a DuoNeb did a 2 view chest and look for pneumonia versus COPD exacerbation. Because she's having some chest discomfort which seems more related to her respiratory distress we will get an EKG and troponin as well. 20 mL/kg would be 1900 cc we'll give her 2 L of normal saline. Her CMP will check her blood glucose. After the initial DuoNeb her breathing was still adventitious with quite a bit of wheezing although it cleared up some sort of another 5 mg of albuterol. Progress Note #2: Time: 08:36 Progress Note Patient's breathing is marginally improved however she still having some mild wheezing. The hospital's on admission diversion but they're getting her discharge patient so I'm working with supervisor housecleaner we can hold her in the ER for a little longer for something to eat and azithromycin 500 mg IV. We will give her 9 units regular insulin since she's having blood sugar over 300 to try and bring that back down under 200. Progress Note #3: Time: 09:55 Progress Note Patient's lactate went up to above 3 however she is still finishing her first liter. Were establishing a second IV still and were going to get her second liter going before ordering any more fluids. We'll give her another breathing treatment of albuterol before she leaves that she still having some wheezing. A repeat blood sugar was 280. Patient ate breakfast about 50%. Urinalysis shows some white cells and the patient did state that she was having a UTI with some dysuria last couple days. Rocephin would be appropriate coverage. ECG Initial ECG Impression Date: Oct 16, 2017 Initial ECG Impression Time: 07:18 Initial ECG Rate: 82 Initial ECG Rhythm: Normal Sinus Initial ECG Intervals: Normal Initial ECG Impression: Normal, Nonspecific Changes Comment No ST elevation or depression Diagnostic Imaging Diagonstic Imaging: Xray Plain Films/CT/US/NM/MRI: chest (2v) Comments VIA [facility]. [place], [place] NAME: [facility] REC#: [id number] PT STATUS: REG ER : 1945 PHYSICIAN: ISRAEL ODELL MD ADMIT DATE: 10/16/17/ER Draft Date of Exam:10/16/17 CHEST PA/LAT (2 VIEW) INDICATION: Worsened shortness of breath. COMPARISON: 07/16/2017 FINDINGS: There is enlargement of the heart unchanged. There is some air trapping and COPD chronic. Treated lower thoracic compression fracture with kyphoplasty stable. No acute chest wall pathology. ICD device unremarkable. No effusion or pneumothorax. IMPRESSION: Stable chronic findings. Dictated on workstation # [id number] Dict: 10/16/17 0754 Trans: 10/16/17 0756 [facility] [id number] Interpreted by: GONZALO MOSHER Electronically signed by: Reviewed: Reviewed by Me Departure Communication (PCP) 0838: Dr Reid: Discussed case lab EKG, imaging and findings and she provisionally agrees to accept the patient Even though we are on diversion and we will board the patient in the ER pending some discharges upstairs. If we cannot get any medical floor bed and we will transfer the patient and notify the physician. She agrees to this. Left voicemail that the patient will be transferred out. Impression Primary Impression: Pneumonia Qualified Codes: J18.9 - Pneumonia, unspecified organism Additional Impressions: COPD with acute exacerbation Sepsis Qualified Codes: A41.9 - Sepsis, unspecified organism UTI (urinary tract infection) Qualified Codes: N30.00 - Acute cystitis without hematuria Disposition: XF SHT-TRM HOSP Condition: Stable Transfer Time Spoke to Accepting Phy: 09:27 Transfer Progress Notes Originally called [facility] and Dr. Garza accepted the patient to the medical floor inpatient however the patient now states that she had a poor experience with [facility] in the past and refuses to go there if there is an alternative. Called [facility] and they will page a medical doctor technology consultant. Dr. Weber accepts the patient to the medical floor on behalf of [facility]. We will call [facility] and notify them as soon as we have a bed assignment to [facility]. Transfer Time: 10:38 Transfer Facility: [place], [place] Method of Transfer: EMS Departure-Patient Inst. Referrals: NANNETTE REID DO (PCP/Family) Primary Care Physician Copy Copies To 1: NANNETTE REID TITUS J Oct 16, 2017 07:24
[2017-10-16] MEDS ORDERED: RT-ALBUTEROL/IPRATROPIUM 3 ML (DUONEB) VIAL INH ONE (07:30)
[2017-10-16] MEDS ORDERED: cefTRIAXone INJECTION 1,000 MG in NS (IVPB) 50 ML IV ONE (07:30)
[2017-10-16] MEDS ORDERED: RT-ALBUTEROL SULF 2.5 MG/3 ML PRE-MIX VIAL INH STA ×2 (07:41→09:44)
[2017-10-16 07:44] LABS: BASOPHILS # (AUTO) 0.1 10^3/uL (0.0-0.1); BASOPHILS % (AUTO) 0 % (0-10); EOSINOPHILS # (AUTO) 0.1 10^3/uL (0.0-0.3); EOSINOPHILS % (AUTO) 0 % (0-10); HEMATOCRIT 43 % (35-52); HEMOGLOBIN 14.5 G/DL (11.5-16.0); LYMPHOCYTES # (AUTO) 1.3 X 10^3 (1.0-4.0); LYMPHOCYTES % (AUTO) 7 % (12-44); MEAN CORPUSCULAR HEMOGLOBIN 31 PG (25-34); MEAN CORPUSCULAR HGB CONC 33 G/DL (32-36); MEAN CORPUSCULAR VOLUME 91 FL (80-99); MEAN PLATELET VOLUME 9.9 FL (7.4-10.4); MONOCYTES # (AUTO) 0.9 X 10^3 (0.0-1.0); MONOCYTES % (AUTO) 4 % (0-12); NEUTROPHILS % (AUTO) 89 % (42-75); PLATELET COUNT 341 10^3/uL (130-400); RED BLOOD COUNT 4.76 10^6/uL (4.35-5.85); RED CELL DISTRIBUTION WIDTH 13.2 % (10.0-14.5); WHITE BLOOD COUNT 20.4 10^3/uL (4.3-11.0)
--- NOTE | 2017-10-16 07:56 | Diagnostic Imaging Report ---
INDICATION: Worsened shortness of breath. COMPARISON: 07/16/2017 FINDINGS: There is enlargement of the heart unchanged. There is some air trapping and COPD chronic. Treated lower thoracic compression fracture with kyphoplasty stable. No acute chest wall pathology. ICD device unremarkable. No effusion or pneumothorax. IMPRESSION: Stable chronic findings. Dictated by: Dictated on workstation # [id number]
[2017-10-16 07:59] LABS: INR 0.9 (0.8-1.4); PROTHROMBIN TIME PATIENT 12.5 SEC (12.2-14.7)
[2017-10-16] MEDS: NS IV 1000 ML 1,000 ML IV SCH ×2 (08:02→10:03)
[2017-10-16 08:06] LABS: ALANINE AMINOTRANSFERASE 36 U/L (0-55); ALBUMIN 4.2 GM/DL (3.2-4.5); ALKALINE PHOSPHATASE 110 U/L (40-136); BILIRUBIN,TOTAL 0.7 MG/DL (0.1-1.0); BUN/CREATININE RATIO 12; CALCIUM 9.8 MG/DL (8.5-10.1); CARBON DIOXIDE 24 MMOL/L (21-32); CHLORIDE 98 MMOL/L (98-107); CREATININE SERUM 0.85 MG/DL (0.60-1.30); GFR ESTIMATED > 60; GLUCOSE 345 MG/DL (70-105); POTASSIUM 4.3 MMOL/L (3.6-5.0); SODIUM 135 MMOL/L (135-145); TOTAL PROTEIN 7.7 GM/DL (6.4-8.2)
[2017-10-16] MEDS ORDERED: NS IV 1000 ML 1,000 ML IV SCH (08:07)
[2017-10-16 08:16] LABS: BAND NEUTROPHILS 3 %; BASOPHILS % (MANUAL) 1 %; EOSINOPHILS % (MANUAL) 0 %; LYMPHOCYTES % (MANUAL) 4 %; MONOCYTES % (MANUAL) 1 %; NEUTROPHILS % (MANUAL) 87 %; POIKILOCYTOSIS SLIGHT; REACTIVE LYMPHOCYTES 4 %
[2017-10-16 08:17] LABS: ELLIPT/OVALOCYTES SLIGHT; ROULEAUX SLIGHT; STOMATOCYTES SLIGHT
[2017-10-16 08:31] LABS: BILIRUBIN,URINE NEGATIVE (NEGATIVE); CLARITY,URINE CLEAR; COLOR,URINE YELLOW; GLUCOSE, URINE (UA) 4+ (NEGATIVE); KETONES,URINE 2+ (NEGATIVE); LEUKOCYTE ESTERASE ,URINE 2+ (NEGATIVE); NITRITE,URINE NEGATIVE (NEGATIVE); PH,URINE 5 (5-9); PROTEIN,URINE 1+ (NEGATIVE); UROBILINOGEN,URINE NORMAL (NORMAL)
[2017-10-16] MEDS ORDERED: inSUlin (REGULAR) HUMAN 1 UNIT/0.01 ML (CHARGE PER UNIT) SC ONE (08:45)
[2017-10-16] MEDS ORDERED: AZITHROMYCIN INJECTION 500 MG in NS (IVPB) 250 ML IV ONE (08:45)
[2017-10-16 08:55] LABS: BACTERIA,URINE TRACE /HPF; SQUAMOUS EPITHELIAL CELL,UR 0-2 /HPF
[2017-10-16 10:38] VITALS: BP 146/85
== END 2017-10-16 10:38 | disposition short-term general hospital (02) ==
LOC: EDUNIT# 07:10 → ER 07:12
DX: A41.9 Sepsis, unspecified organism (principal); J44.1 Chronic obstructive pulmonary disease with (acute) exacerbation; N39.0 Urinary tract infection, site not specified; E78.00 Pure hypercholesterolemia, unspecified; E11.42 Type 2 diabetes mellitus with diabetic polyneuropathy; F41.9 Anxiety disorder, unspecified; F32.9 Major depressive disorder, single episode, unspecified; Z87.442 Personal history of urinary calculi; Z87.440 Personal history of urinary (tract) infections; Z87.19 Personal history of other diseases of the digestive system; Z91.011 Allergy to milk products; Z88.0 Allergy status to penicillin; Z88.2 Allergy status to sulfonamides; Z88.6 Allergy status to analgesic agent; Z91.012 Allergy to eggs; Z90.49 Acquired absence of other specified parts of digestive tract; Z90.710 Acquired absence of both cervix and uterus; Z95.0 Presence of cardiac pacemaker; Z90.89 Acquired absence of other organs; Z79.84 Long term (current) use of oral hypoglycemic drugs
CPT/HCPCS: 36415; 71046; 80053; 81000; 82962; 83605; 84484; 85007; 85027; 85610; 85730; 87040; 87088; 93005

== ENCOUNTER 2017-11-03 20:43 | Emergency (ER) | payer MEDICARE ==
[~2017-11-03] VITALS: Ht 165.1 cm; Wt 97.1 kg
[~2017-11-03 20:43] MED LIST changes: -BENZ-13 PO; +BENZ100C18 PO
--- OUTSIDE RECORDS SUMMARY | 2017-11-03 20:49 | XMS REPORT | Clinical Summary ---
Author Author [facility] Organization [facility] Address Unknown Phone Unavailable Care Team Providers Care Master Merchandiser Name Role Phone Belia Reid MD PCP Source Comments Some departments are not documenting in the electronic medical record. If you do not see the information that you expected, contact Release of Information in the Health Information Management department at [phone] for further assistance in locating additional records.[facility] Allergies Active Allergy Reactions Severity Noted Date [...] E11.65 18 Authorizing physician: Dr. Say Carrillo, LAURY glimepiride (AMARYL) 4 mg 06/25/19 Active tablet 18 Active Problems Problem Noted Date Type 2 [...] recently Kidney stones 08/24/2016 Overview: -- 10/15/16: Recycling Specialist evaluation non-obstructing stone. CT shows a [...] 10:37 AM No COLLEEN Tripp) NAHEED Simpson Procedures Procedure Name Priority Date/Time Associated Diagnosis Comments GLUCOSE METER DOWNLOAD Routine 08/26/2017 12:00 AM CDT from Last 3 Months Results * POC URINE DIPSTICK MANUAL READ (09/30/2017) Urine Glucose POC 500 IN CLINIC Urine Bilirubin POC Neg IN CLINIC Urine Ketone POC Neg IN CLINIC Urine Specific [place] 1.015 IN CLINIC POC Urine Blood POC [...]
--- OUTSIDE RECORDS SUMMARY | 2017-11-03 20:50 | XMS REPORT | Encounter Summary ---
Author Author [facility] Organization [facility] Address Unknown Phone Unavailable Care Team Providers Care Oil Field Worker Name Role Phone Belia Reid MD PCP Reason for Visit * Reason Comments Urinary Incontinence Urinary Frequency Urinary Retention Encounter Details Date Type Department Care Team Description 09/30/2017 Office Visit [facility] Mena Benavides MD Recurrent UTI (Primary Physicians - Urology [address] Dx) Ortho and Medical [place] [address] [place] [address] [phone] [place] [address] Social History Tobacco Use Types [...] ago where she went to ER in [place], [place] and took Levaquin. She has had [...] Ketone POC Neg IN CLINIC Urine Specific [place] 1.015 IN CLINIC POC Urine Blood POC [...]
--- OUTSIDE RECORDS SUMMARY | 2017-11-03 20:50 | XMS REPORT | Encounter Summary ---
Author Author [facility] Organization [facility] Address Unknown Phone Unavailable Care Team Providers Care Technical Support Director Name Role Phone Belia Reid MD PCP Encounter Details Date Type Department Care Team Description 09/12/2017 Orders Only [facility] Marlene Fan Physicians - Internal [address] [place] [address] Ortho and Medical [phone] [address] [place] [address] Social History Tobacco Use Types [...]
--- OUTSIDE RECORDS SUMMARY | 2017-11-03 20:50 | XMS REPORT | Encounter Summary ---
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 and Medical Required Genetics mellitus with [address] hyperglycemia, [address] without [address] [place], [place] [address] [place] [address] Phone: insulin (HCC) [phone] Reason for Visit * Reason Comments Diabetes Encounter Details Date Type Department Care Team Description 08/26/2017 Clinical [facility] Marlene Fan Type 2 diabetes mellitus Support Physicians - Internal [address] with hyperglycemia, [place] [address] without long-term current Ortho and Medical [phone] use of insulin (HCC) [address] (Primary Dx) [address] [place] [address] Social History Tobacco Use Types [...] Best Regards, Marlene Fan MS, RD, LD Table Inspector [facility] Diabetes Self-Management [facility] [email or web address] in this encounter Progress Notes * Marlene [...] or HECTORN Marlene Fan MS, RD, LD Table Inspector [facility] Diabetes Self-Management Center [facility] [email or web address] in this encounter Plan of Treatment Name [...]
[2017-11-03] MEDS ORDERED: KETOROLAC 30 MG/ML VIAL IVP ONE (21:00)
[2017-11-03] MEDS ORDERED: PROCHLORPERAZINE 10 MG/2ML INJ (COMPAZINE) IV ONE (21:00)
[2017-11-03] MEDS ORDERED: diphenhydrAMINE 50 MG/ML INJ (BENADRYL) IM ONE (21:00)
--- NOTE | 2017-11-03 21:14 | ED Headache ---
General Stated Complaint: MIGRAINE R SIDE,VERTIGO,PALPITATIONS Source: patient Exam Limitations: no limitations History of Present Illness Date Seen by Provider: Nov 03, 2017 Time Seen by Provider: 21:00 Initial Comments Patient is a 72-year-old female who presents to the emergency room with complaints of a migraine to the right side of her head, vertigo, palpitations. She frequently has migraines that bring her to the hospital they are normally on the left side. She reports that the right-sided migraine is very different and she also has vertigo with this. She has been having this the past 2 days along with palpitations. She reports that her palpitations are normal and she is been in contact with Dr. Adame to discuss treatment and she recently increased her Inderal prescription dose. Denies chest pain, shortness of breath. Timing/Duration: other Severity/Quality: pressure (2 days) Location: temporal (right temporal) Prior Headaches/Recent Trauma: frequent headaches, chronic headaches Associated Symptoms: No confusion, No loss of consciousness, No numbness in legs/feet, No stiff neck, No vision changes; other (vertigo) Allergies and Home Medications Allergies Coded Allergies: milk (Verified Allergy, Intermediate, 10/16/17) hydromorphone (Verified Allergy, Mild, STRONG RASH, 06/08/16) Penicillins (Unverified Allergy, Unknown, Pt has received Cefepime & Ceftriaxone in the past w/o issue, 01/18/17) Sulfa (Sulfonamide Antibiotics) (Verified Allergy, Unknown, 06/08/16) aspirin (Verified Adverse Reaction, Mild, ASPIRIN SENSITIVE, 06/08/16) sumatriptan (Verified Adverse Reaction, Mild, PALPITATIONS, 06/08/16) Uncoded Allergies: EGG WHITES (Allergy, Unknown, 10/16/17) Home Medications Amitriptyline HCl 50 Mg Tablet, 50 MG PO DAILY, (Reported) Azithromycin 250 Mg Tablet, 250 MG PO UD TAKE 2 TABLETS ON DAY ONE THEN TAKE 1 TABLET DAILY FOR FOUR MORE DAYS Prescribed by: EARNESTINE CAMARGO on 10/27/172216 Benzonatate 100 Mg Capsule, 1-2 TAB PO TID Prescribed by: PETER ASHLEY on 07/15/172054 Buspirone HCl 5 Mg Tablet, 5 MG PO TID, (Reported) Glimepiride 4 Mg Tablet, 4 MG PO BID, (Reported) Levofloxacin 500 Mg Tablet, 500 MG PO DAILY Prescribed by: PETER ASHLEY on 07/15/172054 Lorazepam 0.5 Mg Tablet, 0.5 MG PO TID PRN for ANXIETY, (Reported) Methocarbamol 500 Mg Tablet, 500 MG PO QID Prescribed by: PETER ASHLEY on 10/02/171858 Methylprednisolone 4 Mg Tab.ds.pk, 4 MG PO UD Prescribed by: PETER ASHLEY on 07/15/172054 Methylprednisolone 4 Mg Tab.ds.pk, 4 MG PO UD Prescribed by: PETER ASHLEY on 10/02/171858 Methylprednisolone 4 Mg Tab.ds.pk, 4 MG PO UD Prescribed by: EARNESTINE CAMARGO on 10/27/172216 Omeprazole 40 Mg Capsule.dr, 40 MG PO BID, (Reported) Ondansetron 4 Mg Tab.rapdis, 4 MG PO Q4H Prescribed by: PETER ASHLEY on 10/02/171858 Pramipexole Di-HCl 1 Mg Tablet, 1 MG PO DAILY, (Reported) Promethazine HCl/Codeine 118 Ml Syrup, 5 ML PO Q4H Prescribed by: PETER ASHLEY on 07/15/172054 Propranolol HCl 60 Mg Tablet, 60 MG PO BID, (Reported) Sucralfate 1 Gm/10 Ml Oral.susp, 1 GM PO QID AC AND HS Prescribed by: PETER ASHLEY on 07/15/172054 Patient Home Medication List Home Medication List Reviewed: Yes Review of Systems Review of Systems Constitutional: see HPI; No chills, No fever Eyes: See HPI, Photophobia Cardiovascular: see HPI, palpitations Psychiatric/Neurological: See HPI, Headache (migraines) All Other Systems Reviewed Negative Unless Noted: Yes Past Rbjgdxq-Ghkumg-Ubbkou Hx Past Med/Social Hx: Reviewed Nursing Past Med/Soc Hx Patient Social History 2nd Hand Smoke Exposure: Yes Recent Foreign Travel: No Contact w/Someone Who Travel: No Recent Hopitalizations: No Immunizations Up To Date Tetanus Booster (TDap): Unknown PED Vaccines UTD: No Date of Pneumonia Vaccine: May 24, 2012 Date of Influenza Vaccine: Jan 25, 2016 Seasonal Allergies Seasonal Allergies: Yes Past Medical History Surgeries: Yes Abdominal, Appendectomy, Cardiac, Defibrillator, Gallbladder, Hysterectomy, Oophorectomy, Orthopedic, Pacemaker, Tonsillectomy Respiratory: Yes (COPD, wears oxygen AT HS AND PRN) Asthma, Pneumonia, Chronic Bronchitis, Sleep Apnea, COPD Currently Using CPAP: No Currently Using BIPAP: No Cardiac: Yes (PACEMAKER/DEFIBRILLATOR) High Cholesterol, Irregular Heartbeat Neurological: Yes (PERIPHERAL NEUROPATHY) Headaches /Migraines, Neuropathy 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 Disorders: No Female 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 Disorders: Denies GENERAL INTERN History: Hysterectomy, Menopausal Sexually Transmitted Disease: No Genitourinary: Yes Kidney Infection, Bladder Infection, Kidney Stones, UTI-Chronic Gastrointestinal: Yes (S/P CORNELIUS FUNDOPLICATION; ESOPHAGEAL STRICTURES/ DILATIONS; DYSPHAGIA) Gastroesophageal Reflux, Diverticulosis, Hemorrhoids, Polyps, C-Diff, Hiatal Hernia, Ulcer, Gall Bladder Disease, Irritable Bowel Musculoskeletal: Yes (RESTLESS LEG SYNDROME; CHRONIC NECK PAIN WITH RADICULOPATHY--RIGHT > LEFT) Degenerate Disk Disease, Arthritis, Fibromyalgia, Chronic Back Pain Endocrine: Yes Diabetes, Non-Insulin dep HEENT: Yes Cataract Loss of Vision: Denies Hearing Impairment: Denies Cancer: No Psychosocial: Yes Anxiety, Depression Integumentary: Yes (CANDIDAL INTERTRIGO) Pruritis Blood Disorders: No Adverse Reaction/Blood Tranf: No Family Medical History Reviewed Nursing Family Hx Alzheimer's disease 19 FATHER Cardiovascular disease 19 FATHER 19 MOTHER Completed stroke 19 MOTHER Hypertension 19 FATHER 19 MOTHER Myocardial infarction 19 FATHER 19 MOTHER No Family History of: Diabetes mellitus Physical Exam Vital Signs Vital Signs - First Documented 11/03/17 11/03/17 20:54 22:45 Temp 98.7 Pulse 68 Resp 19 B/P (MAP) 150/86 (107) Pulse Ox 100 Capillary Refill : Height, Weight, BMI Height: 5'5.00" Weight: 214lbs. 0oz. 97.779921qf; 37.1 BMI Method:Stated General Appearance: WD/WN, no apparent distress Neck: non-tender, full range of motion, supple, normal inspection Cardiovascular: normal peripheral pulses, regular rate, rhythm, no edema, no gallop, no JVD, no murmur Respiratory: chest non-tender, lungs clear, normal breath sounds, no respiratory distress, no accessory muscle use Psychiatric: alert, oriented x 3 Crainal Nerves: normal hearing, normal speech, PERRL Coordination/Gait: normal finger to nose Motor/Sensory: no motor deficit, no sensory deficit Skin: normal color, warm/dry Progress/Results/Core Measures Results/Orders Lab Results Laboratory Tests Test 11/03/17 21:18 Range/Units White Blood Count 12.1 H 4.3-11.0 10^3/uL Red Blood Count 3.98 L 4.35-5.85 10^6/uL Hemoglobin 12.6 11.5-16.0 G/DL Hematocrit 36 35-52 % Mean Corpuscular Volume 91 80-99 FL Mean Corpuscular Hemoglobin 32 25-34 PG Mean Corpuscular Hemoglobin Concent 35 32-36 G/DL Red Cell Distribution Width 13.1 10.0-14.5 % Platelet Count 222 130-400 10^3/uL Mean Platelet Volume 9.9 7.4-10.4 FL Neutrophils (%) (Auto) 60 42-75 % Lymphocytes (%) (Auto) 32 12-44 % Monocytes (%) (Auto) 6 0-12 % Eosinophils (%) (Auto) 2 0-10 % Basophils (%) (Auto) 0 0-10 % Neutrophils # (Auto) 7.3 1.8-7.8 X 10^3 Lymphocytes # (Auto) 3.9 1.0-4.0 X 10^3 Monocytes # (Auto) 0.7 0.0-1.0 X 10^3 Eosinophils # (Auto) 0.2 0.0-0.3 10^3/uL Basophils # (Auto) 0.0 0.0-0.1 10^3/uL Sodium Level 139 135-145 MMOL/L Potassium Level 4.1 3.6-5.0 MMOL/L Chloride Level 105 98-107 MMOL/L Carbon Dioxide Level 20 L 21-32 MMOL/L Anion Gap 14 5-14 MMOL/L Blood Urea Nitrogen 13 7-18 MG/DL Creatinine 0.82 0.60-1.30 MG/DL Estimat Glomerular Filtration Rate > 60 BUN/Creatinine Ratio 16 Glucose Level 203 H 70-105 MG/DL Calcium Level 9.0 8.5-10.1 MG/DL Corrected Calcium 9.6 8.5-10.1 MG/DL Total Bilirubin 0.4 0.1-1.0 MG/DL Aspartate Amino Transf (AST/SGOT) 26 5-34 U/L Alanine Aminotransferase (ALT/SGPT) 30 0-55 U/L Alkaline Phosphatase 93 40-136 U/L Troponin I < 0.30 <0.30 NG/ML Total Protein 6.0 L 6.4-8.2 GM/DL Albumin 3.3 3.2-4.5 GM/DL My Orders Orders - RENO MELO Ekg Tracing (11/03/17 20:58) Ketorolac Injection (Toradol Injection) (11/03/17 21:00) Prochlorperazine Injection (Compazine In (11/03/17 21:00) Diphenhydramine Injection (Benadryl Inje (11/03/17 21:00) Ct Head Wo (11/03/17 20:59) Troponin I (11/03/17 20:59) Cbc With Automated Diff (11/03/17 21:00) Comprehensive Metabolic Panel (11/03/17 21:00) Medications Given in ED Vital Signs/I&O 11/03/17 11/03/17 20:54 22:45 Temp 98.7 98.7 Pulse 68 68 Resp 19 19 B/P (MAP) 150/86 (107) 150/86 (107) Pulse Ox 100 Progress Progress Note : Time: 22:20 Progress Note I have seen and evaluated the patient. I have informed her of imaging studies. She is pain-free at this time. She agrees with plans of discharge, close follow- up with Dr. Reid and Dr. Cerda. Return precautions were given. EKG : EKG Time: 21:14 Rate: 68 Rhythm: Normal Sinus Intervals: Normal ECG Comparisson: No Previous ECG Available ECG Impression: Normal Diagnostic Imaging Diagonstic Imaging: CT Plain Films/CT/US/NM/MRI: head Comments NAME: BRAYDON ARBOLEDA [facility] REC#: [id number] PT STATUS: REG ER : 1945 PHYSICIAN: RENO MELO ADMIT DATE: 11/03/17/ER Draft Date of Exam:11/03/17 CT HEAD WO PROCEDURE: CT head without contrast. TECHNIQUE: Multiple contiguous axial images were obtained through the brain without the use of intravenous contrast. INDICATION: Headache. COMPARISON: CT head without contrast 08/24/2015. FINDINGS: Moderate generalized cerebral and cerebellar parenchymal volume loss. No CT evidence of acute infarction. No intracranial hemorrhage, mass effect hydrocephalus or extra-axial fluid collections. Small amount of fluid layering in the sphenoid sinus. The mastoids are clear. Osseous structures are intact. IMPRESSION: 1. No acute intracranial CT findings. 2. Small amount of fluid layering in the sphenoid sinus can be seen with acute sinusitis. Dictated on workstation # [id number] Dict: 11/03/17 2144 Trans: 11/03/17 2149 [facility] [id number] Interpreted by: ANA GORDILLO MD Electronically signed by: Reviewed: Reviewed by Me Departure Impression Primary Impression: Migraine headache Disposition: HOME, SELF-CARE Condition: Stable/Unchanged Departure-Patient Inst. Decision time for Depature: 22:21 Referrals: ULI CERDA [facility] F[facility]NANNETTE KHALIL DO (PCP/Family) Primary Care Physician Patient Instructions: Migraine Headache (DC) Add. Discharge Instructions: Continue home medications as described. Follow-up with Dr. Reid and Dr. Callahan within 1 week for recheck. Return back to the emergency room for any worsening symptoms or concerns as needed. RENO MELO Nov 03, 2017 21:14
[2017-11-03 21:42] LABS: BASOPHILS % (AUTO) 0 % (0-10); EOSINOPHILS # (AUTO) 0.2 10^3/uL (0.0-0.3); EOSINOPHILS % (AUTO) 2 % (0-10); HEMATOCRIT 36 % (35-52); HEMOGLOBIN 12.6 G/DL (11.5-16.0); LYMPHOCYTES # (AUTO) 3.9 X 10^3 (1.0-4.0); LYMPHOCYTES % (AUTO) 32 % (12-44); MEAN CORPUSCULAR HEMOGLOBIN 32 PG (25-34); MEAN CORPUSCULAR HGB CONC 35 G/DL (32-36); MEAN CORPUSCULAR VOLUME 91 FL (80-99); MEAN PLATELET VOLUME 9.9 FL (7.4-10.4); MONOCYTES # (AUTO) 0.7 X 10^3 (0.0-1.0); MONOCYTES % (AUTO) 6 % (0-12); NEUTROPHILS # (AUTO) 7.3 X 10^3 (1.8-7.8); NEUTROPHILS % (AUTO) 60 % (42-75); PLATELET COUNT 222 10^3/uL (130-400); RED BLOOD COUNT 3.98 10^6/uL (4.35-5.85); RED CELL DISTRIBUTION WIDTH 13.1 % (10.0-14.5); WHITE BLOOD COUNT 12.1 10^3/uL (4.3-11.0)
--- NOTE | 2017-11-03 21:49 | Diagnostic Imaging Report ---
PROCEDURE: CT head without contrast. TECHNIQUE: Multiple contiguous axial images were obtained through the brain without the use of intravenous contrast. INDICATION: Headache. COMPARISON: CT head without contrast 08/24/2015. FINDINGS: Moderate generalized cerebral and cerebellar parenchymal volume loss. No CT evidence of acute infarction. No intracranial hemorrhage, mass effect hydrocephalus or extra-axial fluid collections. Small amount of fluid layering in the sphenoid sinus. The mastoids are clear. Osseous structures are intact. IMPRESSION: 1. No acute intracranial CT findings. 2. Small amount of fluid layering in the sphenoid sinus can be seen with acute sinusitis. Dictated by: Dictated on workstation # [id number]
[2017-11-03 21:59] LABS: ALANINE AMINOTRANSFERASE 30 U/L (0-55); ALBUMIN 3.3 GM/DL (3.2-4.5); ALKALINE PHOSPHATASE 93 U/L (40-136); BILIRUBIN,TOTAL 0.4 MG/DL (0.1-1.0); BUN/CREATININE RATIO 16; CARBON DIOXIDE 20 MMOL/L (21-32); CHLORIDE 105 MMOL/L (98-107); CREATININE SERUM 0.82 MG/DL (0.60-1.30); GFR ESTIMATED > 60; GLUCOSE 203 MG/DL (70-105); POTASSIUM 4.1 MMOL/L (3.6-5.0); SODIUM 139 MMOL/L (135-145)
[2017-11-03 22:45] VITALS: BP 150/86
== END 2017-11-03 22:46 | disposition home or self-care (01) ==
LOC: EDUNIT# 20:43 → ER 20:44
DX: G43.909 Migraine, unspecified, not intractable, without status migrainosus (principal); J44.9 Chronic obstructive pulmonary disease, unspecified; G47.30 Sleep apnea, unspecified; E78.00 Pure hypercholesterolemia, unspecified; K21.9 Gastro-esophageal reflux disease without esophagitis; E11.42 Type 2 diabetes mellitus with diabetic polyneuropathy; F41.9 Anxiety disorder, unspecified; F32.9 Major depressive disorder, single episode, unspecified; Z82.49 Family history of ischemic heart disease and other diseases of the circulatory system; Z87.09 Personal history of other diseases of the respiratory system; Z88.0 Allergy status to penicillin; Z87.448 Personal history of other diseases of urinary system; Z87.440 Personal history of urinary (tract) infections; Z87.19 Personal history of other diseases of the digestive system; Z88.2 Allergy status to sulfonamides; Z88.6 Allergy status to analgesic agent; Z88.8 Allergy status to other drugs, medicaments and biological substances; Z79.84 Long term (current) use of oral hypoglycemic drugs; Z79.52 Long term (current) use of systemic steroids; Z90.89 Acquired absence of other organs; Z95.810 Presence of automatic (implantable) cardiac defibrillator; Z87.01 Personal history of pneumonia (recurrent)
CPT/HCPCS: 36415; 70450; 80053; 84484; 85025; 93005; 96372; 96374; 96375

== ENCOUNTER → 2017-11-11 | Outpatient (CLI) | payer MEDICARE ==
[2017-11-11 15:08] LABS: BASOPHILS % (AUTO) 1 % (0-10); EOSINOPHILS # (AUTO) 0.2 10^3/uL (0.0-0.3); EOSINOPHILS % (AUTO) 2 % (0-10); HEMATOCRIT 43 % (35-52); LYMPHOCYTES # (AUTO) 2.2 X 10^3 (1.0-4.0); LYMPHOCYTES % (AUTO) 28 % (12-44); MEAN CORPUSCULAR HEMOGLOBIN 31 PG (25-34); MEAN CORPUSCULAR HGB CONC 33 G/DL (32-36); MEAN CORPUSCULAR VOLUME 94 FL (80-99); MONOCYTES # (AUTO) 0.5 X 10^3 (0.0-1.0); MONOCYTES % (AUTO) 6 % (0-12); NEUTROPHILS % (AUTO) 64 % (42-75); PLATELET COUNT 253 10^3/uL (130-400); RED BLOOD COUNT 4.54 10^6/uL (4.35-5.85); RED CELL DISTRIBUTION WIDTH 13.5 % (10.0-14.5); WHITE BLOOD COUNT 7.9 10^3/uL (4.3-11.0)
[2017-11-11 15:27] LABS: ALANINE AMINOTRANSFERASE 31 U/L (0-55); ALBUMIN 3.9 GM/DL (3.2-4.5); ALKALINE PHOSPHATASE 105 U/L (40-136); BILIRUBIN,TOTAL 0.4 MG/DL (0.1-1.0); BUN/CREATININE RATIO 11; CALCIUM 9.5 MG/DL (8.5-10.1); CARBON DIOXIDE 19 MMOL/L (21-32); CHLORIDE 103 MMOL/L (98-107); CREATININE SERUM 0.85 MG/DL (0.60-1.30); GFR ESTIMATED > 60; GLUCOSE 349 MG/DL (70-105); MAGNESIUM 2.1 MG/DL (1.8-2.4); POTASSIUM 4.2 MMOL/L (3.6-5.0); SODIUM 133 MMOL/L (135-145)
== END ==
LOC: LAB 14:33
PROVIDERS: ATTEND Internal Medicine Cardiovascular Disease
DX: I42.0 Dilated cardiomyopathy (principal); R00.1 Bradycardia, unspecified; J43.8 Other emphysema; M79.89 Other specified soft tissue disorders; R09.02 Hypoxemia; E66.9 Obesity, unspecified; I95.1 Orthostatic hypotension
CPT/HCPCS: 36415; 80053; 83735; 84443; 85025

== ENCOUNTER → 2017-11-22 | Outpatient (CLI) | payer MEDICARE ==
[~2017-11-22] VITALS: Ht 167.6 cm; Wt 97.1 kg
[~2017-11-22] MED LIST changes: +REGADENOSON 0.4 MG/5 ML SYR (LEXISCAN) IV ONE
[2017-11-22] MEDS: CATHETER FLUSH 10 ML SYR IV PRN ×2 (07:49→08:58)
[2017-11-22 08:57] VITALS: BP 133/89
--- NOTE | 2017-11-22 16:21 | STRESS TEST ---
DATE OF SERVICE: 11/22/2017 RESTING AND POST REGADENOSON TECHNETIUM-99M TETROFOSMIN SPECT CT IMAGING ORDERING PHYSICIAN: Alexi Cerda MD PRIMARY PHYSICIAN: Dr. Reid. CLINICAL DIAGNOSIS: Shortness of breath, cardiomyopathy, paroxysmal atrial tachycardia. Baseline images were carried out after injection of 10.89 mCi technetium-99m tetrofosmin. This was followed by 0.4 mg regadenoson and 29.9 mCi of technetium-99m tetrofosmin for stress imaging. The electrocardiogram showed sinus rhythm at baseline. It did not change significantly with the regadenoson infusion. The patient noted some nausea and lightheadedness following regadenoson infusion, which resolved in a few minutes. Review of images at rest and following stress does not indicate any significant perfusion defects consistent with significant myocardial ischemia or infarction. Gated images show normal global left ventricular systolic function with normal regional wall motion. Left ventricular ejection fraction is calculated to be 78%. Left ventricular end diastolic volume is 58 mL. CONCLUSIONS: 1. No evidence of significant myocardial ischemia or infarction on this study. 2. Normal regional wall motion. 3. Normal to hyperdynamic left ventricular systolic function with a calculated ejection fraction of 78%. Job ID: [id number] DocumentID: [id number] Dictated Date: 11/22/2017 15:30:40 Virology Teacher Date: 11/22/2017 16:20:44 Dictated By: ALEXI CERDA MD, MA, FACP, FACC,
== END ==
LOC: CARD 07:11
PROVIDERS: ATTEND Internal Medicine Cardiovascular Disease
DX: I47.1 Supraventricular tachycardia (principal); R06.02 Shortness of breath; I42.0 Dilated cardiomyopathy; I65.29 Occlusion and stenosis of unspecified carotid artery; Z86.73 Personal history of transient ischemic attack (TIA), and cerebral infarction without residual deficits
CPT/HCPCS: 78452; 93017

== ENCOUNTER 2017-11-28 17:32 | Emergency (ER) | payer MEDICARE ==
[~2017-11-28] VITALS: Ht 167.6 cm; Wt 97.1 kg
[~2017-11-28 17:32] MED LIST changes: -REGADENOSON 0.4 MG/5 ML SYR (LEXISCAN) IV ONE
--- NOTE | 2017-11-28 17:43 | ED Headache ---
General Chief Complaint: Head/Cervical Problems Stated Complaint: MIGRAINE X2 DAYS Nursing Triage Note: PT WITH HX OF MIGRAINES STATES HEADACHE FOR 2 DAYS. Nursing Sepsis Screen: No Definite Risk Source: patient Exam Limitations: no limitations History of Present Illness Date Seen by Provider: Nov 28, 2017 Time Seen by Provider: 17:42 Initial Comments Patient is a 72 year old female who presents to the emergency room with complaints of migraine for the past 2 days. She has a history of migraines and this migraine is very similar to past migraines but it has not let up. She also reports nausea. Timing/Duration: other (2 days) Associated Symptoms: nausea/vomiting Allergies and Home Medications Allergies Coded Allergies: milk (Verified Allergy, Intermediate, 10/16/17) hydromorphone (Verified Allergy, Mild, STRONG RASH, 06/08/16) Penicillins (Unverified Allergy, Unknown, Pt has received Cefepime & Ceftriaxone in the past w/o issue, 01/18/17) Sulfa (Sulfonamide Antibiotics) (Verified Allergy, Unknown, 06/08/16) aspirin (Verified Adverse Reaction, Mild, ASPIRIN SENSITIVE, 06/08/16) sumatriptan (Verified Adverse Reaction, Mild, PALPITATIONS, 06/08/16) Uncoded Allergies: EGG WHITES (Allergy, Unknown, 10/16/17) Home Medications Amitriptyline HCl 50 Mg Tablet, 50 MG PO DAILY, (Reported) Azithromycin 250 Mg Tablet, 250 MG PO UD TAKE 2 TABLETS ON DAY ONE THEN TAKE 1 TABLET DAILY FOR FOUR MORE DAYS Prescribed by: EARNESTINE CAMARGO on 10/27/172216 Benzonatate 100 Mg Capsule, 1-2 TAB PO TID Prescribed by: PETER ASHLEY on 07/15/172054 Buspirone HCl 5 Mg Tablet, 5 MG PO TID, (Reported) Glimepiride 4 Mg Tablet, 4 MG PO BID, (Reported) Levofloxacin 500 Mg Tablet, 500 MG PO DAILY Prescribed by: PETER ASHLEY on 07/15/172054 Lorazepam 0.5 Mg Tablet, 0.5 MG PO TID PRN for ANXIETY, (Reported) Methocarbamol 500 Mg Tablet, 500 MG PO QID Prescribed by: PETER ASHLEY on 10/02/171858 Methylprednisolone 4 Mg Tab.ds.pk, 4 MG PO UD Prescribed by: PETER ASHLEY on 07/15/172054 Methylprednisolone 4 Mg Tab.ds.pk, 4 MG PO UD Prescribed by: PETER ASHLEY on 10/02/171858 Methylprednisolone 4 Mg Tab.ds.pk, 4 MG PO UD Prescribed by: EARNESTINE CAMARGO on 10/27/172216 Omeprazole 40 Mg Capsule.dr, 40 MG PO BID, (Reported) Ondansetron 4 Mg Tab.rapdis, 4 MG PO Q4H Prescribed by: PETER ASHLEY on 10/02/171858 Pramipexole Di-HCl 1 Mg Tablet, 1 MG PO DAILY, (Reported) Promethazine HCl/Codeine 118 Ml Syrup, 5 ML PO Q4H Prescribed by: PETER ASHLEY on 07/15/172054 Propranolol HCl 60 Mg Tablet, 60 MG PO BID, (Reported) Sucralfate 1 Gm/10 Ml Oral.susp, 1 GM PO QID AC AND HS Prescribed by: PETER ASHLEY on 07/15/172054 Patient Home Medication List Home Medication List Reviewed: Yes Review of Systems Review of Systems Constitutional: see HPI; No chills, No fever Gastrointestinal: see HPI, nausea Psychiatric/Neurological: See HPI, Headache All Other Systems Reviewed Negative Unless Noted: Yes Past Yowxpmu-Wlykoo-Jzzmfu Hx Past Med/Social Hx: Reviewed Nursing Past Med/Soc Hx Patient Social History 2nd Hand Smoke Exposure: Yes Recent Foreign Travel: No Contact w/Someone Who Travel: No Recent Infectious Disease Expo: No Recent Hopitalizations: No Immunizations Up To Date Tetanus Booster (TDap): Unknown PED Vaccines UTD: No Date of Pneumonia Vaccine: May 24, 2012 Date of Influenza Vaccine: Jan 25, 2016 Seasonal Allergies Seasonal Allergies: Yes Past Medical History Surgeries: Yes Abdominal, Appendectomy, Cardiac, Defibrillator, Gallbladder, Hysterectomy, Oophorectomy, Orthopedic, Pacemaker, Tonsillectomy Respiratory: Yes (COPD, wears oxygen AT HS AND PRN) Asthma, Pneumonia, Chronic Bronchitis, Sleep Apnea, COPD Currently Using CPAP: No Currently Using BIPAP: No Cardiac: Yes (PACEMAKER/DEFIBRILLATOR) High Cholesterol, Irregular Heartbeat Neurological: Yes (PERIPHERAL NEUROPATHY) Headaches /Migraines, Neuropathy 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 Disorders: No Female 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 Disorders: Denies [employer] History: Hysterectomy, Menopausal Sexually Transmitted Disease: No Genitourinary: Yes Kidney Infection, Bladder Infection, Kidney Stones, UTI-Chronic Gastrointestinal: Yes (S/P CORNELIUS FUNDOPLICATION; ESOPHAGEAL STRICTURES/ DILATIONS; DYSPHAGIA) Gastroesophageal Reflux, Diverticulosis, Hemorrhoids, Polyps, C-Diff, Hiatal Hernia, Ulcer, Gall Bladder Disease, Irritable Bowel Musculoskeletal: Yes (RESTLESS LEG SYNDROME; CHRONIC NECK PAIN WITH RADICULOPATHY--RIGHT > LEFT) Degenerate Disk Disease, Arthritis, Fibromyalgia, Chronic Back Pain Endocrine: Yes Diabetes, Non-Insulin dep HEENT: Yes Cataract Loss of Vision: Denies Hearing Impairment: Denies Cancer: No Psychosocial: Yes Anxiety, Depression Integumentary: Yes (CANDIDAL INTERTRIGO) Pruritis Blood Disorders: No Adverse Reaction/Blood Tranf: No Family Medical History Reviewed Nursing Family Hx Alzheimer's disease 19 FATHER Cardiovascular disease 19 FATHER 19 MOTHER Completed stroke 19 MOTHER Hypertension 19 FATHER 19 MOTHER Myocardial infarction 19 FATHER 19 MOTHER No Family History of: Diabetes mellitus Physical Exam Vital Signs Vital Signs - First Documented 11/28/17 17:39 Temp 98.7 Pulse 70 Resp 20 B/P (MAP) 164/87 (112) Pulse Ox 98 O2 Delivery Room Air Capillary Refill : Less Than 3 Seconds Height, Weight, BMI Height: 5'6.00" Weight: 214lbs. 0.0oz. 97.607346bs; 34.5 BMI Method:Stated General Appearance: WD/WN, no apparent distress HEENT: PERRL/EOMI, normal ENT inspection Neck: non-tender, full range of motion, supple, normal inspection Cardiovascular: normal peripheral pulses, regular rate, rhythm, no edema, no gallop, no JVD, no murmur Respiratory: chest non-tender, lungs clear, normal breath sounds, no respiratory distress, no accessory muscle use Gastrointestinal: normal bowel sounds, non tender, soft, no organomegaly, no pulsatile mass Psychiatric: alert, oriented x 3 Crainal Nerves: normal hearing, normal speech, PERRL Coordination/Gait: normal finger to nose Motor/Sensory: no motor deficit, no sensory deficit Skin: normal color, warm/dry Progress/Results/Core Measures Results/Orders My Orders Orders - RENO MELO Ketorolac Injection (Toradol Injection) (11/28/17 17:45) Prochlorperazine Injection (Compazine In (11/28/17 17:45) Diphenhydramine Injection (Benadryl Inje (11/28/17 17:45) Promethazine Tablet (Phenergan Tablet) (11/28/17 17:45) Medications Given in ED Current Medications Medications Dose Ordered Sig/Alannah Route Start Time Stop Time Status Last Admin Dose Admin Diphenhydramine HCl 50 mg ONCE ONCE IM 11/28/17 17:45 11/28/17 17:47 DC 11/28/17 17:58 50 MG Ketorolac Tromethamine 60 mg ONCE ONCE IM 11/28/17 17:45 11/28/17 17:47 DC 11/28/17 17:57 60 MG Prochlorperazine Edisylate 10 mg ONCE ONCE IM 11/28/17 17:45 11/28/17 17:47 DC 11/28/17 17:57 10 MG Promethazine HCl 25 mg ONCE ONCE PO 11/28/17 17:45 11/28/17 17:47 DC 11/28/17 17:57 25 MG Vital Signs/I&O 11/28/17 11/28/17 11/28/17 11/28/17 17:39 17:57 17:57 17:58 Temp 98.7 98.7 98.7 98.7 Pulse 70 Resp 20 B/P (MAP) 164/87 (112) Pulse Ox 98 O2 Delivery Room Air 11/28/17 18:48 Temp 98.7 Pulse 57 Resp 20 B/P (MAP) 134/71 (112) Pulse Ox 99 O2 Delivery Room Air Blood Pressure Mean: 112 Progress Progress Note : Time: 18:35 Progress Note I have seen and evaluated the patient. Her migraine has resolved at this time along with her nausea. She agrees with plans for discharge. Return precautions were given. Departure Impression Primary Impression: Migraine Disposition: 01 HOME, SELF-CARE Condition: Stable/Unchanged Departure-Patient Inst. Decision time for Depature: 18:41 Referrals: NANNETTE REVELES DO (PCP/Family) Primary Care Physician Patient Instructions: Migraine Headache (DC) Add. Discharge Instructions: Continue your home medication as previously prescribed. Follow-up with Dr. REVELES within 1 week for recheck. Return back to the emergency room for any worsening symptoms or concerns as needed. All discharge instructions reviewed with patient and/or family. Voiced understanding. RENO MELO Nov 28, 2017 17:43
[2017-11-28] MEDS: KETOROLAC 60 MG/2 ML VIAL IM ONE (17:57)
[2017-11-28] MEDS: PROMETHAZINE 25 MG (PHENERGAN) TAB PO ONE (17:57)
[2017-11-28] MEDS: PROCHLORPERAZINE 10 MG/2ML INJ (COMPAZINE) IM ONE (17:57)
[2017-11-28] MEDS: diphenhydrAMINE 50 MG/ML INJ (BENADRYL) IM ONE (17:58)
--- OUTSIDE RECORDS SUMMARY | 2017-11-28 18:32 | XMS REPORT | Clinical Summary ---
Author Author [facility] Organization [facility] Address Unknown Phone Unavailable Care Team Providers Care Clothes Presser Name Role Phone Belia Reid MD PCP Source Comments Some departments are not documenting in the electronic medical record. If you do not see the information that you expected, contact Release of Information in the Health Information Management department at [phone] for further assistance in locating additional records.[facility] Allergies Active Allergy Reactions Severity Noted Date Comments Aspirin STOMACH UPSET, SEE Low 06/22/2016 Is ok to take 81mg asa COMMENTS Sumatriptan Succinate ANXIETY Low 06/22/2016 Penicillins RASH, ITCHING Medium 06/22/2016 Sulfa (Sulfonamide RASH, ITCHING Medium 06/22/2016 Antibiotics) Current Medications Prescription Sig. Disp. Refills Start End Date Status Date propranolol (INDERAL) 40 Take 40 mg by mouth three Active mg tablet times daily. pramipexole (MIRAPEX) 1 Take 1 mg [...] Say Carrillo, III Preferred meter by insurance insulin glargine (LANTUS Inject twenty Units under 30 mL 3 11/14/19 Active SOLOSTAR, BASAGLAR) 100 the skin daily. 18 unit/mL (3 mL) injection PEN insulin pen needles Use one each as directed 100 each 3 11/14/19 Active (disposable) (B-D TETO; daily. Use with insulin 18 ULTICARE MICRO) 32 gauge injections. x 5/32" pen needle blood sugar diagnostic Use one strip as directed 300 strip 3 11/14/19 Active test strip before meals and at 18 bedtime. lancets MISC Use one each as directed 300 each 3 11/14/19 Active daily as needed. 18 blood sugar diagnostic Use 1 strip as directed 100 strip 3 07/13/19 11/14/19 Discontin test strip daily. 18 18 ued lancets MISC Use 1 each as directed 100 each 3 07/13/19 11/14/19 Discontin daily as needed. E11.65 18 18 ued Authorizing physician: Dr. Say Carrillo, III glimepiride (AMARYL) 4 mg 06/25/19 11/14/19 Discontin tablet 18 18 ued Active Problems Problem Noted [...] recently Kidney stones 08/24/2016 Overview: -- 10/15/16: Loading Unit Tool Setter evaluation non-obstructing stone. CT shows a 4.6 [...] restart anticholinergic and cic - rtc 6 [facility] Vaginal atrophy 06/22/2016 Overview: No history of breast cancer Not sexually active Vaginal irritation L ast Assessment & Plan: Continue Estrace cream 3 x weekly Encounters Date Type Specialty Care Team Description 11/18/2017 Telephone Endocrinology, Metabolism Calvin Tripp APRN Other ([place]) & Genetics 11/14/2017 Telephone Endocrinology, Metabolism Calvin Tripp APRN Other ([place]) & Genetics 11/13/2017 Office Visit Endocrinology, Metabolism Calvin Tripp APRN Uncontrolled type 2 & Genetics diabetes mellitus with hyperglycemia, without long-term current use of insulin (HCC) (Primary Dx) 09/30/2017 Office Visit Urology Mena Benavides MD Recurrent UTI ( Primary Dx) 09/12/2017 Orders Only Endocrinology, Metabolism Marlene Fan & Genetics from Last 3 Months Social History Tobacco Use Types Packs/Day Years Used Date Never Smoker Smokeless Tobacco: Never Used Alcohol Use Drinks/Week oz/Week Comments No 0 Standard 0.0 drinks or equivalent Sex Assigned at Date Recorded Not on file Last Filed Vital Signs Vital Sign Reading Time Taken Blood Pressure 145/78 11/13/2017 12:52 PM CDT Pulse 66 11/13/2017 12:52 PM CDT Temperature - - Respiratory Rate - - Oxygen Saturation - - Inhaled Oxygen - - Concentration Weight 99 kg (218 lb 3.2 oz) 11/13/2017 12:52 PM CDT Height 165.1 cm (5' 5") 11/13/2017 12:52 PM CDT Body Mass Index 36.31 11/13/2017 12:52 PM CDT Plan of Treatment Health Maintenance Due [...] 2 - PCV13) INFLUENZA VACCINE 12/02/2017 HBA1C 05/13/2018 11/13/2017, 07/12/2017, 04/01/2017, Additional history exists Goals Patient Goal Type Goal Recent Progress Patient-Stat Author ed? Result Component HEMOGLOBIN A1C < 7.5 9.9 (04/01/2017 10:37 AM No COLLEEN Tripp) NAHEED Simpson Procedures Procedure Name Priority Date/Time Associated Diagnosis Comments POC GLUCOSE QUANTITATIVE Routine 11/13/2017 Uncontrolled type 2 Results for this BLOOD 12:00 AM CDT diabetes mellitus with procedure are in the hyperglycemia, without results section. long-term current use of insulin (HCC) POC HEMOGLOBIN A1C Routine 11/13/2017 Uncontrolled type 2 Results for this 12:00 AM CDT diabetes mellitus with procedure are in the hyperglycemia, without results section. long-term current use of insulin ([facility]) GLUCOSE METER DOWNLOAD Routine 11/13/2017 Uncontrolled type 2 12:00 AM CDT diabetes mellitus with hyperglycemia, without long-term current use of insulin (HCC) POC URINE DIPSTICK MANUAL Routine 09/30/2017 Recurrent UTI Results for this READ 12:00 AM CDT procedure are in the results section. from Last 3 Months Results * POC GLUCOSE QUANTITATIVE BLOOD (11/13/2017) Glucose, POC [facility] Performing Organization Address City/[facility]/Zipcode Phone Number IN CLINIC * GLUCOSE METER DOWNLOAD (11/13/2017) Narrative Performed At Performing Organization Address City/[facility]/Zipcode Phone Number IN CLINIC * POC HEMOGLOBIN A1C (11/13/2017) Poc Hemoglobin A1C 10.0 [facility] Specimen Blood Performing Organization Address City/[facility] [[email or web address] Phone Number IN CLINIC * POC URINE DIPSTICK MANUAL READ (09/30/2017) Urine Glucose POC 500 [facility] Urine Bilirubin POC Neg IN CLINIC Urine Ketone POC Neg IN CLINIC Urine Specific [place] 1.015 [facility] CLINIC POC Urine Blood POC [...]
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
--- OUTSIDE RECORDS SUMMARY | 2017-11-28 18:32 | XMS REPORT | Encounter Summary ---
Author Author [facility] Organization [facility] Address Unknown Phone Unavailable Care Team Providers Care Payroll Clerk Name Role Phone Belia Reid MD PCP Encounter Details Date Type Department Care Team Description 09/12/2017 Orders Only [facility] Marlene Fan Physicians - Internal [address] [place] [address] Ortho and Medical [phone] [address] [place] [address] Social History Tobacco Use Types [...]
--- OUTSIDE RECORDS SUMMARY | 2017-11-28 18:32 | XMS REPORT | Encounter Summary ---
Author Author [facility] Organization [facility] Address Unknown Phone Unavailable Care Team Providers Care Compliance Manager Name Role Phone Belia Reid MD PCP Reason for Referral * Consult, Test & Treat (Routine) Status Reason Specialty Diagnoses / Referred By Referred To Procedures Contact Contact New Request Specialty Pulmonology Diagnoses Calvin Tripp [facility] Pulmonary Services Uncontrolled READING ASSISTANT Ortho and Medical Required type 2 diabetes [address] mellitus with [address] hyperglycemia, [place] [address] [place], [place] [address] long-term [id number] Phone: current use of insulin (HCC) [phone] Reason for Visit * Reason Comments Diabetes Encounter Details Date Type Department Care Team Description 11/13/2017 Office Visit [facility] Calvin Tripp APRN Uncontrolled type 2 Physicians - Internal [address] diabetes mellitus with Medicine [place] [address] hyperglycemia, [place] [address] long-term current use of [address] Level 5A [phone] insulin (HCC) (Primary [address] Dx) [place] [address] Social History Tobacco Use Types [...] Mass Index 36.31 11/13/2017 12:52 PM CDT in this encounter Instructions * Patient Instructions - Calvin Tripp APRN - 11/13/2017 1:00 PM CDT Formatting of this note may be different from the original. Goals we discussed today: Getting your blood sugar in the normal range while you sleep and before breakfast is the first and most important step in controlling your diabetes with insulin. You are taking a long acting insulin called glargine. You are currently taking 20 units You should increase the dose every 1 unit(s) every day until you are sleeping without hypoglycemia (low blood sugar) and waking up with your fingerstick blood sugar at your goal of 100 - 150 mg/dl. The dose that keeps your sugars in the target range on most days now becomes your regular dose. It is normal to see some variation in your blood sugar. Don't make changes just because you are a little off your target once in a while. If you have hypoglycemia overnight, decrease your long-acting (basal) insulin by 2 units the next day. Never adjust your long-acting insulin based on what your blood sugar is when you take the shot. Remember that Lantus, Toujeo, (glargine), Tresiba and Levemir insulin keep working on your sugar for 24 to 42 hours. The fasting (7- 8 AM) blood test reflects the effects of the long acting insulin and it is used to adjust the dose of your long acting insulin. Please contact [facility] for any questions or abnormal glucose values (above 300 or less than 70 repeatedly). [phone]. My nurse can be reached at [phone]. Health goals for a person with diabetes [...] Avoid walking barefoot. Your recent lab values: Glucose, POC Date/Time Value Ref Range Status 07/12/2017 180 Final No results found for: CHOL, HDL, LDL No results found for: TRIG Diabetes Support Group Monthly DM Support Group facilitated by CDE. There is no fee or Registration required for attendance. Meets the first Saturday of each month from 6-7:30pm at the [facility], [address], [address], [place] [address]. [facility] Diabetes Classes and Education Opportunities To schedule Diabetes Education please call , Option 3 Contact your insurance company to determine coverage for diabetes education. in this encounter Progress Notes * Calvin Tripp, NAHEED - 11/13/2017 1:00 PM CDT Formatting of this note may be different from the original. Date of Service: 11/13/2017 Subjective: Diana Gregory is a 72 y.o. female. History of Present Illness Pt presents to clinic for management of T2 DM. This is the 4 mo f/u to her initial appointment at [facility]. She was hospitalized for COPD exacerbation and has used steroids in the past month. PCP is Dr. Reid in [place], [place]. Referred by urology as she has recurrent UTIs likely due to hyperglycemia A1C is now 10.0, was 9.2 in 07/19, was previously 9.9 in 03/21. Wt today is 218 lbs. No meter for review. Fasting BGs range 180s+ and daytime BGs range 200s+. Pt discusses how finances are limited, and sometimes has to skimp and buy cheaper foods, that she knows are higher carbs. She doesn't drive anymore due to narcolepsy. She is disabled. She reports a complicated medical history, having chronic back pain and fibromyalgia, migraines, neuropathies, recurrent kidney stones, diverticulitis, IBS. Had a defib placed internally after she had an CO during surgery for nasal septum surgery. She has had many recent hospitalizations for "choking" and pnuemonia, during which she was using prednisone and ativan to help with relief. T2 DM: Dx: 2012, and did not treat this for a few years Current treatment: glimepiride 4 mg in the AM and PM. Metformin ER 500 mg daily. Has used samples of trulicity successfully from her PCP, but ran out. Threw away her samples of GLP-1 from last visit with me as she could not afford the full prescription. Medication adherent: when she can afford them Past treatment: metformin--diarrhea, trulicity -tolerated samples well, but was too expensive. Used insulin in the hospital when using [...] due to pain Complications of DM: CAD: CO in 2010 during surgery for deviated septum CVA: yes, TIAs PVD: no Amputations: no Retinopathy: cataract surgery recently Gastropathy: no Nephropathy: no Neuropathy: no Last dental exam 2004 Last eye exam within 12 mo: Yes, 07/19 cataract surgery Past Medical History: Diagnosis Date Anxiety disorder Arthritis Asthma Bronchitis 09/2016 Cataract Chronic migraine Colon polyps COPD (chronic obstructive pulmonary disease) (HCC) Dementia Depression DM (diabetes mellitus) (HCC) Dyslipidemia Fibromyalgia [...] narrative on file Labs: Comprehensive Metabolic Profile Lab Results Component Value Date/Time NA 138 07/12/2017 11:31 AM K 3.9 07/12/2017 11:31 AM CL 100 07/12/2017 11:31 AM CO2 31 (H) 07/12/2017 11:31 AM GAP 7 07/12/2017 11:31 AM BUN 15 07/12/2017 11:31 AM CR 0.79 07/12/2017 11:31 AM GLU 176 (H) 07/12/2017 11:31 AM Lab Results Component Value Date/Time CA 9.8 07/12/2017 11:31 AM GFR >60 07/12/2017 11:31 AM GFRAA >60 07/12/2017 11:31 AM No results found for: MCALB24 No results [...] 2 diabetes maintain an A1c level <7%. Poc Hemoglobin A1C Date Value Ref Range Status 11/13/2017 10.0 Final 07/12/2017 9.2 Final No results found for: VITD25 Review of [...] other systems reviewed and are negative. Objective: aspirin EC 81 mg tablet Take 81 mg by mouth daily. Take with food. blood sugar diagnostic test strip Use one strip as directed before meals and at bedtime. Blood-Glucose Meter kit Use as directed daily. E11.65 Authorizing physician: Dr. Say Carrillo, III Preferred meter by insurance busPIRone (BUSPAR) 5 mg tablet Take 5 mg by mouth three times daily. estradiol (ESTRACE) 0.01 % (0.1 mg/g) vaginal cream Insert or Apply to vaginal area three times weekly. Apply as directed, apply at bedtime insulin glargine (LANTUS SOLOSTAR, BASAGLAR) 100 unit/mL (3 mL) injection PEN Inject twenty Units under the skin daily. insulin pen needles (disposable) (B-D TETO; ULTICARE MICRO) 32 gauge x 5/32 " pen needle Use one each as directed daily. Use with insulin injections. lancets MISC Use one each as directed daily as needed. LORazepam (ATIVAN) 0.5 mg tablet Take 1 Tab by mouth every 6 hours as needed for Nausea. Indications: takes 4-5 prn metFORMIN-XR(+) (GLUCOPHAGE XR) 500 mg extended release tablet Take 4 tablets by mouth daily with dinner. (Patient taking differently: Take 500 mg by mouth daily with dinner.) omeprazole DR(+) (PRILOSEC) 40 mg capsule other medication Take 1 Dose by mouth as Needed. Medication Name & Strength : cough syrup Dose(how many):as directed Frequency(how often): prn Indications: could not remember name for cough with bronchitis pramipexole (MIRAPEX) 1 mg tablet Take 1 mg by mouth daily. propranolol (INDERAL) 40 mg tablet Take 40 mg by mouth three times daily. Vitals: 11/13/17 1252 BP: 145/78 Pulse: 66 Weight: 99 kg (218 lb 3.2 oz) Height: 165.1 cm (65") Body mass index is 36.31 kg/m. Physical Exam Constitutional: She is oriented to person, place, and time. She appears well- developed and well-nourished. HENT: Head: Normocephalic and atraumatic. Eyes: Pupils are equal, round, and reactive to light. Neck: Neck supple. No thyromegaly present. Cardiovascular: Normal heart sounds. Pulmonary/Chest: Effort normal and breath sounds normal. Abdominal: Soft. Neurological: She is alert and oriented to person, place, and time. Skin: Skin is warm and dry. Psychiatric: She has a normal mood and affect. Her behavior is normal. Vitals reviewed. declines foot exam, says she has seen cleaner laboratory equipment this month Assessment and Plan: Diabetes mellitus type 2, uncontrolled A1c 10 in clinic today Target A1c 7.5 Currently on glimepiride 4 mg BID and metformin XR 500 mg daily Complicated by: Retinopathy, Peripheral neuropathy, CAD, CVA Barriers to care: Limited finances and chronic pain Plan: Discussed basics of diabetes and goal to avoid glucose extremes to avoid further complications. Reviewed that steroids increase her glucose, and that insulin is necessary at this point. Check glucose twice daily, at various times of day Glargine insulin 20 units daily. First dose given in clinic by pt using a sample pen after instruction demo. Instructed on TTT Re-attempt metformin increase, in XR form, starting at low dose. If tolerating may advance gradually to full dose of 2 g daily DC trulicity as this is not affordable Instructed on rule of 15 for hypoglycemia, [...] declines today as she has seen her cleaner laboratory equipment this month Supportive care for diabetes: Logistics Support/dietitian (recommended annually): met with Marlene this summer Encouraged meeting with educator again, now that she has started insulin. Discuss insulin safety, affordability and treat to target program Lipids: Hyperlipidemia Recommendations for Statin treatment in [...] pressure: Hypertension Controlled UBALDO-I or ARB: No Total time 30 minutes. Estimated counseling time 20 minutes. Counseled patient regarding diabetes management and starting insulin. Orders Placed This Encounter GLUCOSE METER DOWNLOAD PULMONARY POC HEMOGLOBIN A1C POC GLUCOSE QUANTITATIVE BLOOD insulin glargine (LANTUS SOLOSTAR, BASAGLAR) 100 unit/mL (3 mL) injection PEN insulin pen needles (disposable) (B-D TETO; ULTICARE MICRO) 32 gauge x 5/32 " pen needle blood sugar diagnostic test strip lancets [facility] Patient Instructions Goals we discussed today: Getting your blood sugar in the normal range while you sleep and before breakfast is the first and most important step in controlling your diabetes with insulin. You are taking a long acting insulin called glargine. You are currently taking 20 units You should increase the dose every 1 unit(s) every day until you are sleeping without hypoglycemia (low blood sugar) and waking up with your fingerstick blood sugar at your goal of 100 - 150 mg/dl. The dose that keeps your sugars in the target range on most days now becomes your regular dose. It is normal to see some variation in your blood sugar. Don't make changes just because you are a little off your target once in a while. If you have hypoglycemia overnight, decrease your long-acting (basal) insulin by 2 units the next day. Never adjust your long-acting insulin based on what your blood sugar is when you take the shot. Remember that Lantus, Toujeo, (glargine), Tresiba and Levemir insulin keep working on your sugar for 24 to 42 hours. The fasting (7- 8 AM) blood test reflects the effects of the long acting insulin and it is used to adjust the dose of your long acting insulin. Please contact [facility] for any questions or abnormal glucose values (above 300 or less than 70 repeatedly). [phone]. My nurse can be reached at [phone]. Health goals for a person with diabetes [...] Avoid walking barefoot. Your recent lab values: Glucose, POC Date/Time Value Ref Range Status 07/12/2017 180 Final No results found for: CHOL, HDL, LDL No results found for: TRIG Diabetes Support Group Monthly DM Support Group facilitated by CDE. There is no fee or Registration required for attendance. Meets the first Saturday of each month from 6-7:30pm at the [facility], [address], [address], [place] [address]. [facility] Diabetes Classes and Education Opportunities To schedule Diabetes Education please call , Option 3 Contact your insurance company to determine coverage for diabetes education. Future Appointments Date Time Provider Department [place] 12/12/2017 11:00 AM Marlene Fan IMSANDEEP [facility] IM 03/20/2018 1:00 PM Nathan Crenshaw MD QVIMDIAB [facility] IM 04/02/2018 10:15 AM Mena Benavides MD UROLGYCL [facility] Urology 05/09/2018 9:00 AM Calvin Tripp APRN IMDIABTS [facility] IM in this encounter Plan of Treatment Name Priority Associated Diagnoses Order Schedule AMB REFERRAL TO PULMONARY Routine Uncontrolled type 2 Ordered: 2017 diabetes mellitus with hyperglycemia, without long-term current use of insulin (HCC) as of this encounter Goals Patient Goal Type Goal Recent Progress Patient-Stat Author ed? Result Component HEMOGLOBIN A1C < 7.5 9.9 (04/01/2017 10:37 AM Leonela Tripp CST) NAHEED Simpson as of this encounter Procedures Procedure Name Priority Date/Time Associated Diagnosis Comments POC GLUCOSE QUANTITATIVE Routine 11/13/2017 Uncontrolled type 2 Results for this BLOOD 12:00 AM CDT diabetes mellitus with procedure are in the hyperglycemia, without results section. long-term current use of insulin (HCC) GLUCOSE METER DOWNLOAD Routine 11/13/2017 Uncontrolled type 2 12:00 AM CDT diabetes mellitus with hyperglycemia, without long-term current use of insulin (HCC) POC HEMOGLOBIN A1C Routine 11/13/2017 Uncontrolled type 2 Results for this 12:00 AM CDT diabetes mellitus with procedure are in the hyperglycemia, without results section. long-term current use of insulin (HCC) in this encounter Results * POC GLUCOSE QUANTITATIVE BLOOD (11/13/2017) Glucose, POC 241 [facility] CLIN[facility] Performing Organization Address [facility] Phone Number [facility] * POC HEMOGLOBIN A1C (11/13/2017) Poc Hemoglobin A1C 10.0 IN CLINIC Specimen Blood Performing Organization Address [facility] Phone Number [facility] in this encounter Visit Diagnoses Diagnosis Uncontrolled type 2 diabetes mellitus with hyperglycemia, without long-term current use of insulin (HCC) - Primary
--- OUTSIDE RECORDS SUMMARY | 2017-11-28 18:32 | XMS REPORT | Encounter Summary ---
Author Author [facility] Organization [facility] Address Unknown Phone Unavailable Care Team Providers Care Shopper Insights Manager Name Role Phone Belia Reid MD PCP Reason for Visit * Reason Comments Other [place] Encounter Details Date Type Department Care Team Description 11/14/2017 Telephone [facility] Calvin Tripp APRN Other (High BG) Physicians - Internal [address] [facility] Medicine [place] [address] [place] [address] [facility] [phone] [address] [place], [place] [id number] Social History Tobacco Use Types Packs/Day Years Used Date Never Smoker Smokeless Tobacco: Never Used Alcohol Use Drinks/Week oz/Week Comments No 0 Standard 0.0 drinks or equivalent Sex Assigned at Date Recorded Not on file as of this encounter Miscellaneous Notes * Telephone Encounter - Víctor Khalil LPN - 11/14/2017 3:52 PM CDT Called patient. LVM with provider message. * Telephone Encounter - Calvin Tripp APRN - 11/14/2017 3:34 PM CDT Yes, each day that she has glucose above 150, she needs to increase by 1 unit. * Telephone Encounter - Víctor Khalil LPN - 11/14/2017 11:06 AM CDT Patient called. She stated her BG was 314 yesterday. This AM is is 321. She is not sure if she should increase insulin. Routing to Tip Tripp APRN For advisement. in this encounter Plan of Treatment Not on fileas of this encounter Goals Patient Goal Type Goal Recent Progress Patient-Stat Author ed? Result Component HEMOGLOBIN A1C < 7.5 9.9 (04/01/2017 10:37 AM No COLLEEN Tripp) NAHEED Simpson as of this encounter Visit Diagnoses Not on filein this encounter
--- OUTSIDE RECORDS SUMMARY | 2017-11-28 18:32 | XMS REPORT | Encounter Summary ---
Author Author [facility] Organization [facility] Address Unknown Phone Unavailable Care Team Providers Care Equine Intern Name Role Phone Belia Reid MD PCP Reason for Visit * Reason Comments Other [place] Encounter Details Date Type Department Care Team Description 11/18/2017 Telephone [facility] Calvin Tripp APRN Other ([place]) Physicians - Internal [address] [facility] Medicine [address] [place] [address] [facility] [phone] [address] [facility] [place] [address] Social History Tobacco Use Types Packs/Day Years Used Date Never Smoker Smokeless Tobacco: Never Used Alcohol Use Drinks/Week oz/Week Comments No 0 Standard 0.0 drinks or equivalent Sex Assigned at Date Recorded Not on file as of this encounter Miscellaneous Notes * Telephone Encounter - Víctor Khalil LPN - 11/19/2017 10:46 AM CDT Called patient. LVM letting her know pen needles have been sent to [employer] [facility]. Informed her she could come by in the meantime if she needed samples. * Telephone Encounter - Calvin Tripp APRN - 11/19/2017 9:49 AM CDT I have ordered some for her to [employer]. If she needs samples in the meantime, she is welcome to come to clinic. * Telephone Encounter - Víctor Khalil LPN - 11/18/2017 3:43 PM CDT Patient called. She stated he is running out of pen needles. She can't afford to pay for them anymore either. She is wondering if there is anything less expensive or anything else we could to help. Routing to Tip Tripp APRN for advisement. in this encounter Plan of Treatment Not on fileas of this encounter Goals Patient Goal Type Goal Recent Progress Patient-Stat Author ed? Result Component HEMOGLOBIN A1C < 7.5 9.9 (04/01/2017 10:37 AM No COLLEEN Tripp) NAHEED Simpson as of this encounter Visit Diagnoses Not on filein this encounter
[2017-11-28 18:48] VITALS: BP 134/71
== END 2017-11-28 18:47 | disposition home or self-care (01) ==
LOC: EDUNIT# 17:32 → ER 17:33
DX: G43.909 Migraine, unspecified, not intractable, without status migrainosus (principal); J44.9 Chronic obstructive pulmonary disease, unspecified; G47.30 Sleep apnea, unspecified; E78.00 Pure hypercholesterolemia, unspecified; K21.9 Gastro-esophageal reflux disease without esophagitis; G25.81 Restless legs syndrome; E11.42 Type 2 diabetes mellitus with diabetic polyneuropathy; F41.9 Anxiety disorder, unspecified; F32.9 Major depressive disorder, single episode, unspecified; Z86.19 Personal history of other infectious and parasitic diseases; Z82.49 Family history of ischemic heart disease and other diseases of the circulatory system; Z86.010 Personal history of colon polyps; Z87.19 Personal history of other diseases of the digestive system; Z87.448 Personal history of other diseases of urinary system; Z87.440 Personal history of urinary (tract) infections; Z88.0 Allergy status to penicillin; Z88.2 Allergy status to sulfonamides; Z88.6 Allergy status to analgesic agent; Z88.8 Allergy status to other drugs, medicaments and biological substances; Z79.84 Long term (current) use of oral hypoglycemic drugs; Z79.52 Long term (current) use of systemic steroids; Z90.89 Acquired absence of other organs; Z90.710 Acquired absence of both cervix and uterus; Z95.810 Presence of automatic (implantable) cardiac defibrillator; Z87.01 Personal history of pneumonia (recurrent)
CPT/HCPCS: 99284

== ENCOUNTER → 2017-12-09 | Outpatient (CLI) | payer MEDICARE | LOC: CARD 14:02 | PROVIDERS: ATTEND Internal Medicine Cardiovascular Disease | DX: I47.1 Supraventricular tachycardia (principal); R06.02 Shortness of breath; I42.9 Cardiomyopathy, unspecified; I08.1 Rheumatic disorders of both mitral and tricuspid valves; Z86.73 Personal history of transient ischemic attack (TIA), and cerebral infarction without residual deficits | CPT/HCPCS: 93306 ==

== ENCOUNTER 2017-12-12 12:37 | Emergency (ER) | payer MEDICARE ==
[~2017-12-12] VITALS: Ht 167.6 cm; Wt 97.1 kg
--- OUTSIDE RECORDS SUMMARY | 2017-12-12 12:44 | XMS REPORT | Encounter Summary ---
Author Author [facility] Organization [facility] Address Unknown Phone Unavailable Care Team Providers Care Directory Operator Name Role Phone Belia Reid MD PCP Reason for Visit * Reason Comments Urinary Incontinence Urinary Frequency Urinary Retention Encounter Details Date Type Department Care Team Description 09/30/2017 Office Visit [facility] Mena Benavides MD Recurrent UTI (Primary Physicians - Urology [address] Dx) Ortho and Medical [place] [address] [place] [address] [phone] [place] [address] Social History Tobacco Use Types [...] ago where she went to ER in [place], [place] and took Levaquin. She has had [...] Ketone POC Neg IN CLINIC Urine Specific [place] 1.015 IN CLINIC POC Urine Blood POC [...]
--- OUTSIDE RECORDS SUMMARY | 2017-12-12 12:44 | XMS REPORT | Encounter Summary ---
Author Author [facility] Organization [facility] Address Unknown Phone Unavailable Care Team Providers Care Commercial Insulator Name Role Phone Belia Reid MD PCP Reason for Visit * Reason Comments Other [place] Encounter Details Date Type Department Care Team Description 11/18/2017 Telephone [facility] Calvin Tripp APRN Other ([place]) Physicians - Internal [address] [facility] Medicine [address] [place] [address] [facility] [phone] [address] [place] [address] Social History Tobacco Use Types [...] know pen needles have been sent to [employer]. Informed her she could come by in the meantime if she needed samples. * Telephone Encounter - Calvin Tripp APRN - 11/19/2017 9:49 AM CDT I have ordered some for her to [employer]. If she needs samples in the meantime, [...]
--- OUTSIDE RECORDS SUMMARY | 2017-12-12 12:44 | XMS REPORT | Encounter Summary ---
Author Author [facility] Organization [facility] Address Unknown Phone Unavailable Care Team Providers Care Exhibit Electrician Name Role Phone Belia Reid MD PCP Encounter Details Date Type Department Care Team Description 09/12/[address] [facility] Marlene Fan Physicians - Internal [address] [place] [address] Ortho and Medical [phone] [address] [place] [address] Social History Tobacco Use Types [...]
--- OUTSIDE RECORDS SUMMARY | 2017-12-12 12:44 | XMS REPORT | Clinical Summary ---
Author Author [facility] Organization [facility] Address Unknown Phone Unavailable Care Team Providers Care Tie Tamper Name Role Phone Belia Reid MD PCP Source Comments Some departments are not documenting in the electronic medical record. If you do not see the information that you expected, contact Release of Information in the Health Information Management department at [phone] for further assistance in locating additional records.[facility] Allergies Active Allergy Reactions Severity Noted [...] recently Kidney stones 08/24/2016 Overview: -- 10/15/16: Supervisor Frame Sample And Pattern evaluation non-obstructing stone. CT shows a 4.6 [...] restart anticholinergic and [facility] - [facility] Vaginal atrophy 06/22/2016 Overview: No history of breast cancer Not sexually active Vaginal irritation L ast Assessment & Plan: Continue Estrace cream 3 x weekly Encounters Date Type Specialty Care Team Description 11/18/2017 Telephone Endocrinology, Metabolism Calvin Tripp APRN Other ([place]) & Genetics 11/14/2017 Telephone Endocrinology, Metabolism Calvin [...] (1 of 2 - PCV13) INFLUENZA VACCINE 10/02/2017 HBA1C 05/13/2018 11/13/2017, 07/12/2017, 04/01/2017, Additional history [...] results section. long-term current use of insulin ([facility]) GLUCOSE METER DOWNLOAD Routine 11/13/2017 Uncontrolled type 2 12:00 AM CDT diabetes mellitus with hyperglycemia, without long-term current use of insulin (HCC) POC URINE DIPSTICK MANUAL Routine 09/30/2017 Recurrent UTI Results for this READ 12:00 AM CDT procedure are in the results section. from Last 3 Months Results * POC GLUCOSE QUANTITATIVE BLOOD (11/13/2017) Glucose, POC 241 IN CLINIC Performing Organization Address City/[facility]/Zipcode Phone Number IN CLINIC * GLUCOSE METER DOWNLOAD (11/13/2017) Narrative Performed At Performing Organization Address City/[facility]/Zipcode Phone Number IN CLINIC * POC HEMOGLOBIN A1C (11/13/2017) Poc Hemoglobin A1C 10.0 IN CLINIC Specimen Blood Performing Organization Address City/[facility] Phone Number [facility] * POC URINE DIPSTICK MANUAL READ (09/30/2017) Urine Glucose POC 500 IN CLINIC Urine Bilirubin POC Neg IN CLINIC Urine Ketone POC Neg IN CLINIC Urine Specific [place] 1.015 IN CLINIC POC Urine Blood POC [...]
--- OUTSIDE RECORDS SUMMARY | 2017-12-12 12:44 | XMS REPORT | Encounter Summary ---
Author Author [facility] Organization [facility] Address Unknown Phone Unavailable Care Team Providers Care Pilot Supervisor Name Role Phone Belia Reid MD PCP Reason for Visit * Reason Comments Other [place] Encounter Details Date Type Department Care Team Description 11/14/2017 Telephone [facility] Calvin Tripp APRN Other (High [place]) Physicians - Internal [address] [facility] Medicine MS 2018 [place] [address] [facility] [phone] [address] [facility] [place], [place] [id number] Social History Tobacco Use Types Packs/Day Years [...]
--- OUTSIDE RECORDS SUMMARY | 2017-12-12 12:44 | XMS REPORT | Encounter Summary ---
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 and Medical Required type 2 diabetes [address] Level [address] mellitus with Bl[address] hyperglycemia, MS 2018 [place] [address] long-term [address] Phone: current use of insulin (HCC) [phone] Reason for Visit * Reason Comments Diabetes Encounter Details Date Type Department Care Team Description 11/13/2017 Office Visit [facility] Calvin Tripp APRN Uncontrolled type 2 Physicians - Internal [address] diabetes mellitus with Medicine MS 2018 hyperglycemia, without [place] [address] long-term current use of Pavilion Level 5A [phone] insulin (HCC) (Primary [address] Dx) [place] [address] Social History Tobacco Use Types [...] your long acting insulin. Please contact [facility] for any questions or abnormal glucose values (above 300 or less than 70 repeatedly). [phone]. My nurse can be reached at [phone]. Health goals for a person with diabetes [...] of each month from 6-7:30pm at the [facility], [address], [address], [place] [address]. [facility] Diabetes Classes and Education Opportunities [...] mo f/u to her initial appointment at [facility]. She was hospitalized for COPD exacerbation and has used steroids in the past month. PCP is Dr. Reid in [place], [place]. Referred by urology as she has [...] defib placed internally after she had an PR during surgery for nasal septum surgery. She [...] due to pain Complications of DM: CAD: PR in 2010 during surgery for deviated septum [...] declines foot exam, says she has seen secondary market manager this month Assessment and Plan: Diabetes mellitus [...] declines today as she has seen her secondary market manager this month Supportive care for diabetes: Funeral Car Chauffeur/dietitian (recommended annually): met with Marlene this summer [...] needle blood sugar diagnostic test strip lancets [facility] Patient Instructions Goals we discussed today: Getting [...] your long acting insulin. Please contact [facility] for any questions or abnormal glucose values (above 300 or less than 70 repeatedly). [phone]. My nurse can be reached at [phone]. Health goals for a person with diabetes [...] of each month from 6-7:30pm at the [facility], [address], [address], [place] [address]. [facility] Diabetes Classes and Education Opportunities To schedule Diabetes Education please call , Option 3 Contact your insurance company to determine coverage for diabetes education. Future Appointments Date Time Provider Department [place] 12/12/2017 11:00 AM Marlene Fan IMSANDEEP [facility] IM 03/20/2018 1:00 PM Nathan Crenshaw MD QVIMDIAB [facility] IM 04/02/2018 10:15 AM Mena Benavides MD UROLGYCL [facility] Urology 05/09/2018 9:00 AM Calvin Tripp APRN IMDIABTS [facility] IM in this encounter Plan of [...] POC 241 IN CLINIC Performing Organization Address [facility] * POC HEMOGLOBIN A1C (11/13/2017) Poc Hemoglobin A1C 10.0 IN CLINIC Specimen Blood Performing Organization Address [facility] in this encounter Visit Diagnoses Diagnosis Uncontrolled type 2 diabetes mellitus with hyperglycemia, without long-term current use of insulin (HCC) - Primary
[2017-12-12] MEDS ORDERED: diphenhydrAMINE 50 MG/ML INJ (BENADRYL) IM ONE (12:45)
[2017-12-12] MEDS ORDERED: PROCHLORPERAZINE 10 MG/2ML INJ (COMPAZINE) IM ONE (12:45)
[2017-12-12] MEDS ORDERED: KETOROLAC 60 MG/2 ML VIAL IM ONE (12:45)
--- NOTE | 2017-12-12 12:50 | ED Fall/Injury ---
General Chief Complaint: Trauma-Non Activation Stated Complaint: FALL Source: patient Exam Limitations: no limitations History of Present Illness Date Seen by Provider: Dec 12, 2017 Time Seen by Provider: 12:47 Initial Comments To ER with reports of a fall. She was moving a picture frame at home and stepped over some newspapers on the floor when she fell. She hit the wall and slid down the wall. She struck the back right side of her head on a picture frame. No loss of consciousness. She complains of pain to the right hand and is unsure how she injured it. She also has some head and neck pain, low back pain and left hip pain. She also states "I have a migraine and was planning on coming out here later for that anyway" Occurred: just prior to arrival Severity: moderate Injuries/Pain Location: face, neck, back, lower extremity Associated Symptoms (Fall): Headache, Neck Pain Allergies and Home Medications Allergies Coded Allergies: milk (Verified Allergy, Intermediate, 10/16/17) hydromorphone (Verified Allergy, Mild, STRONG RASH, 06/08/16) Penicillins (Unverified Allergy, Unknown, Pt has received Cefepime & Ceftriaxone in the past w/o issue, 01/18/17) Sulfa (Sulfonamide Antibiotics) (Verified Allergy, Unknown, 06/08/16) aspirin (Verified Adverse Reaction, Mild, ASPIRIN SENSITIVE, 06/08/16) sumatriptan (Verified Adverse Reaction, Mild, PALPITATIONS, 06/08/16) Uncoded Allergies: EGG WHITES (Allergy, Unknown, 10/16/17) Home Medications Amitriptyline HCl 50 Mg Tablet, 50 MG PO DAILY, (Reported) Azithromycin 250 Mg Tablet, 250 MG PO UD TAKE 2 TABLETS ON DAY ONE THEN TAKE 1 TABLET DAILY FOR FOUR MORE DAYS Prescribed by: EARNESTINE CAMARGO on 10/27/172216 Benzonatate 100 Mg Capsule, 1-2 TAB PO TID Prescribed by: PETER ASHLEY on 07/15/172054 Buspirone HCl 5 Mg Tablet, 5 MG PO TID, (Reported) Glimepiride 4 Mg Tablet, 4 MG PO BID, (Reported) Levofloxacin 500 Mg Tablet, 500 MG PO DAILY Prescribed by: PETER ASHLEY on 07/15/172054 Lorazepam 0.5 Mg Tablet, 0.5 MG PO TID PRN for ANXIETY, (Reported) Methocarbamol 500 Mg Tablet, 500 MG PO QID Prescribed by: PETER ASHLEY on 10/02/171858 Methylprednisolone 4 Mg Tab.ds.pk, 4 MG PO UD Prescribed by: PETER ASHLEY on 07/15/172054 Methylprednisolone 4 Mg Tab.ds.pk, 4 MG PO UD Prescribed by: PETER ASHLEY on 10/02/171858 Methylprednisolone 4 Mg Tab.ds.pk, 4 MG PO UD Prescribed by: EARNESTINE CAMARGO on 10/27/172216 Omeprazole 40 Mg Capsule.dr, 40 MG PO BID, (Reported) Ondansetron 4 Mg Tab.rapdis, 4 MG PO Q4H Prescribed by: PETER ASHLEY on 10/02/171858 Pramipexole Di-HCl 1 Mg Tablet, 1 MG PO DAILY, (Reported) Promethazine HCl/Codeine 118 Ml Syrup, 5 ML PO Q4H Prescribed by: PETER ASHLEY on 07/15/172054 Propranolol HCl 60 Mg Tablet, 60 MG PO BID, (Reported) Sucralfate 1 Gm/10 Ml Oral.susp, 1 GM PO QID AC AND HS Prescribed by: PETER ASHLEY on 07/15/172054 Patient Home Medication List Home Medication List Reviewed: Yes Review of Systems Review of Systems Constitutional: see HPI Eyes: No Symptoms Reported Ears, Nose, Mouth, Throat: no symptoms reported Respiratory: no symptoms reported Cardiovascular: no symptoms reported Genitourinary: no symptoms reported Musculoskeletal: see HPI, back pain, neck pain Psychiatric/Neurological: Headache Past Onidfgb-Eztmia-Gvzriy Hx Patient Social History 2nd Hand Smoke Exposure: Yes Recent Hopitalizations: Yes (10/2017) Immunizations Up To Date Tetanus Booster (TDap): Unknown PED Vaccines UTD: No Date of Pneumonia Vaccine: May 24, 2012 Date of Influenza Vaccine: Jan 25, 2016 Seasonal Allergies Seasonal Allergies: Yes Past Medical History Surgeries: Yes Abdominal, Appendectomy, Cardiac, Defibrillator, Gallbladder, Hysterectomy, Oophorectomy, Orthopedic, Pacemaker, Tonsillectomy Respiratory: Yes (COPD, wears oxygen AT HS AND PRN) Asthma, Pneumonia, Chronic Bronchitis, Sleep Apnea, COPD Currently Using CPAP: No Currently Using BIPAP: No Cardiac: Yes (PACEMAKER/DEFIBRILLATOR) High Cholesterol, Irregular Heartbeat Neurological: Yes (PERIPHERAL NEUROPATHY) Headaches /Migraines, Neuropathy 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 Disorders: No Female 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 Disorders: Denies 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: Hysterectomy, Menopausal Sexually Transmitted Disease: No Genitourinary: Yes Kidney Infection, Bladder Infection, Kidney Stones, UTI-Chronic Gastrointestinal: Yes (S/P CORNELIUS FUNDOPLICATION; ESOPHAGEAL STRICTURES/ DILATIONS; DYSPHAGIA) Gastroesophageal Reflux, Diverticulosis, Hemorrhoids, Polyps, C-Diff, Hiatal Hernia, Ulcer, Gall Bladder Disease, Irritable Bowel Musculoskeletal: Yes (RESTLESS LEG SYNDROME; CHRONIC NECK PAIN WITH RADICULOPATHY--RIGHT > LEFT) Degenerate Disk Disease, Arthritis, Fibromyalgia, Chronic Back Pain Endocrine: Yes Diabetes, Non-Insulin dep HEENT: Yes Cataract Loss of Vision: Denies Hearing Impairment: Denies Cancer: No Psychosocial: Yes Anxiety, Depression Integumentary: Yes (CANDIDAL INTERTRIGO) Pruritis Blood Disorders: No Adverse Reaction/Blood Tranf: No Family Medical History Alzheimer's disease 19 FATHER Cardiovascular disease 19 FATHER 19 MOTHER Completed stroke 19 MOTHER Hypertension 19 FATHER 19 MOTHER Myocardial infarction 19 FATHER 19 MOTHER No Family History of: Diabetes mellitus Physical Exam Vital Signs Capillary Refill : Height, Weight, BMI Height: 5'6.00" Weight: 214lbs. 0.0oz. 97.132053go; 34.5 BMI Method:Stated General Appearance: WD/WN, no apparent distress, other (alert and oriented, able to transfer herself out of the wheelchair and into the bed without assistance and bearing weight on both legs. No bruising or erythema or abrasion to any of the areas where she reports pain.) HEENT: PERRL/EOMI, normal ENT inspection, TMs normal Neck: non-tender, full range of motion Respiratory: no respiratory distress, no accessory muscle use Gastrointestinal: normal bowel sounds, non tender, soft Extremities: normal range of motion, non-tender, normal inspection Neurologic/Psychiatric: alert, normal mood/affect, oriented x 3 [place] Score Best Eye Response: (4) Open Spontaneously Best Verbal Response: (5) Oriented Best Motor Response: (6) Obeys Commands Oswaldo Total: 15 Progress/Results/Core Measures Results/Orders My Orders Orders - EARNESTINE CAMARGO APRN Ct Head/Cervical Spine Wo (12/12/17 12:45) Chest 1 View, Ap/Pa Only (10/11/18 12:45) Hand, Right, 3 Views (12/12/17 12:45) Lumbar Spine - 2-3 Views (12/12/17 12:45) Hip, Left, 2 Views (12/12/17 12:45) Prochlorperazine Injection (Compazine In (12/12/17 12:45) Ketorolac Injection (Toradol Injection) (12/12/17 12:45) Diphenhydramine Injection (Benadryl Inje (12/12/17 12:45) Departure Impression Primary Impression: Migraine headache Additional Impression: Fall Disposition: 01 HOME, SELF-CARE Condition: Stable Departure-Patient Inst. Decision time for Depature: 12:50 Referrals: NANNETTE REVELES DO (PCP/Family) Primary Care Physician Patient Instructions: Preventing Falls Add. Discharge Instructions: 1. Tylenol and Motrin for your other aches and pains 2. Return to ER for any concerns 3. All discharge instructions reviewed with patient and/or family. Voiced understanding. EARNESTINE CAMARGO APRN Dec 12, 2017 12:50
--- NOTE | 2017-12-12 13:38 | Diagnostic Imaging Report ---
INDICATION: Shortness of air. TECHNIQUE: Single-view chest, 1:41 p.m. CORRELATION STUDY: 10/27/2017. FINDINGS: Left-sided dual-chamber pacemaker is present. Cardiac enlargement. Prominent appearance about the mediastinum with tortuous course of the thoracic aorta. Pulmonary vasculature is within normal limits. The lungs are clear with no consolidating infiltrate. There is no significant effusion or pneumothorax. IMPRESSION: 1. Stable cardiac enlargement without failure; otherwise, no acute findings in the chest. Dictated by: Dictated on workstation # [id number]
--- NOTE | 2017-12-12 13:40 | Diagnostic Imaging Report ---
INDICATION: Fall with left hip pain. AP and oblique views of the left hip are obtained. FINDINGS: No fracture or acute bony abnormality is seen. There is no significant joint space narrowing. IMPRESSION: Negative left hip. Dictated by: Dictated on workstation # [id number]
--- NOTE | 2017-12-12 13:40 | Diagnostic Imaging Report ---
INDICATION: Post fall today, pain. TECHNIQUE: Three views of the right hand. CORRELATION STUDY: None. FINDINGS: Diffuse bony demineralization. Alignment is anatomic without evidence for dislocation. No acute fracture. Mild joint space narrowing, particularly at the distal interphalangeal joint of the index finger. Soft tissues are unremarkable. IMPRESSION: 1. Negative for acute bony abnormality of the hand. Bony demineralization. Dictated by: Dictated on workstation # [id number]
--- NOTE | 2017-12-12 13:42 | Diagnostic Imaging Report ---
INDICATION: Post fall, pain. TECHNIQUE: AP, lateral, and spot imaging of the lumbar spine. CORRELATION STUDY: 10/08/2016. FINDINGS: Very mild rightward curvature of the lumbar spine with apex at L3. Trace anterolisthesis of L4 on L5 and L3 on L4. Stable kyphoplasty changes at T12 level. Lumbar vertebral body heights are maintained. Mild disc space narrowing at L3-4, L4-5, and L5-S1 levels. Mild hypertrophic facet arthropathy in the lower lumbar spine. Moderate amount of overlying bowel gas and stool. There does appear to be slight sclerosis of the SI joints. IMPRESSION: No radiographic evidence for acute bony abnormality of the lumbar spine. Relatively stable appearance about the lumbar spine. Dictated by: Dictated on workstation # [id number]
--- NOTE | 2017-12-12 13:59 | Diagnostic Imaging Report ---
PROCEDURE: CT head and CT cervical spine without contrast. TECHNIQUE: Multiple contiguous axial images were obtained through the brain and cervical spine without the use of intravenous contrast. Sagittal and coronal reformations through the cervical spine were then performed. INDICATION: Fall. COMPARISON: 11/03/2017 FINDINGS: CT head: The ventricles and cortical sulci are diffusely prominent, compatible with age-related volume loss. There is no midline shift or mass-effect. No acute intra-axial hemorrhage is seen. There are no abnormal areas of increased or decreased density to suggest acute hemorrhage or edema. No extra-axial masses or collections are present. The bony calvarium is intact. The visualized paranasal sinuses show small air-fluid level within the left sphenoid sinus. The mastoid air cells are clear. CT cervical spine: Evaluation of static alignment demonstrates reversal of normal lordotic curvature epicentered at the C5-C6 level. Findings may be related to positioning, as well as spasm and underlying degenerative changes. There is no significant anterolisthesis or retrolisthesis. There is no evidence of jumped facets. Vertebral body heights are maintained. There is no evidence of acute fracture. No bony fragments are seen within the spinal canal. Multilevel degenerative changes are identified and consistent with intervertebral disc height loss with anterior and posterior disc osteophyte complex formations, greatest at the C5-C6 and C6-C7 levels. Pre and paravertebral soft tissue structures are unremarkable. Included portions of the lung apices show no additional acute abnormalities. IMPRESSION: 1. No acute intracranial abnormality. No CT evidence of mass, acute infarct or intracranial hemorrhage. 2. No CT evidence of acute fracture or dislocation of the cervical spine. 3. Moderate degenerative changes of the cervical spine at the C5-C6 and C6-C7 levels. Dictated by: Dictated on workstation # [id number]
[2017-12-12 14:17] VITALS: BP 140/73
== END 2017-12-12 14:17 | disposition home or self-care (01) ==
LOC: EDUNIT# 12:37 → ER 12:38
DX: G43.909 Migraine, unspecified, not intractable, without status migrainosus (principal); J44.9 Chronic obstructive pulmonary disease, unspecified; G47.30 Sleep apnea, unspecified; E78.00 Pure hypercholesterolemia, unspecified; K21.9 Gastro-esophageal reflux disease without esophagitis; G25.81 Restless legs syndrome; E11.42 Type 2 diabetes mellitus with diabetic polyneuropathy; F41.9 Anxiety disorder, unspecified; F32.9 Major depressive disorder, single episode, unspecified; R40.2142 Coma scale, eyes open, spontaneous, at arrival to emergency department; R40.2252 Coma scale, best verbal response, oriented, at arrival to emergency department; R40.2362 Coma scale, best motor response, obeys commands, at arrival to emergency department; Z86.010 Personal history of colon polyps; Z87.19 Personal history of other diseases of the digestive system; Z82.49 Family history of ischemic heart disease and other diseases of the circulatory system; Z87.448 Personal history of other diseases of urinary system; Z88.0 Allergy status to penicillin; Z87.440 Personal history of urinary (tract) infections; Z88.5 Allergy status to narcotic agent; Z88.2 Allergy status to sulfonamides; Z88.6 Allergy status to analgesic agent; Z88.8 Allergy status to other drugs, medicaments and biological substances; Z79.84 Long term (current) use of oral hypoglycemic drugs; Z79.52 Long term (current) use of systemic steroids; Z90.49 Acquired absence of other specified parts of digestive tract; Z95.810 Presence of automatic (implantable) cardiac defibrillator; Z90.710 Acquired absence of both cervix and uterus; Z87.01 Personal history of pneumonia (recurrent); W18.31XA Fall on same level due to stepping on an object, initial encounter; W22.01XA Walked into wall, initial encounter
CPT/HCPCS: 70450; 71045; 72100; 72125; 73130; 73502

== ENCOUNTER → 2018-01-02 | Outpatient (CLI) | payer MEDICARE ==
[~2018-01-02] MED LIST changes: +MELO15TA14 PO
--- NOTE | 2018-01-02 11:08 | Diagnostic Imaging Report ---
PROCEDURE: CT thoracic spine without contrast. TECHNIQUE: Multiple axial computerized tomography images were obtained from the base of the thoracic spine to the vertex without intravenous contrast. INDICATION: Fall two weeks ago with pain between the shoulder blades. FINDINGS: Curvature of the thoracic spine is normal. There is a treated compression fracture at the T12 level with kyphoplasty. The vertebral body again demonstrates vertebra plana. Mild retropulsion at this level is again noted and unchanged. The remaining thoracic vertebrae show normal stature. No new compression fracture is seen. The paraspinous tissues are unremarkable. The bony canal appears to be widely patent. IMPRESSION: Treated compression fracture at T12 with kyphoplasty. No new compression fractures identified. No acute feature is seen. Dictated by: Dictated on workstation # [id number]
== END ==
LOC: RAD 09:32
PROVIDERS: ATTEND Family Medicine
DX: S22.080A Wedge compression fracture of T11-T12 vertebra, initial encounter for closed fracture (principal); Z98.1 Arthrodesis status; W19.XXXA Unspecified fall, initial encounter
CPT/HCPCS: 72128

== ENCOUNTER 2018-01-06 17:50 | Emergency (ER) | payer MEDICARE ==
[~2018-01-06] VITALS: Ht 165.1 cm; Wt 98.0 kg
[~2018-01-06 17:50] MED LIST changes: -MELO15TA14 PO
--- OUTSIDE RECORDS SUMMARY | 2018-01-06 17:55 | XMS REPORT | Encounter Summary ---
Author Author [facility] Organization [facility] Address Unknown Phone Unavailable Care Team Providers Care Unit Technician Name Role Phone Belia Reid MD PCP Reason for Visit * Reason Comments Other [place] Encounter Details Date Type Department Care Team Description 11/18/2017 Telephone [facility] Calvin Tripp APRN Other ([place]) Physicians - Internal [address] [facility] Medicine MS 2018 [place] [address] [facility] [phone] [address] [facility] [place] [address] Social History Tobacco Use Types [...] know pen needles have been sent to [facility]. Informed her she could come by in the meantime if she needed samples. * Telephone Encounter - Calvin Tripp APRN - 11/19/2017 9:49 AM CDT I have ordered some for her to [facility]. If she needs samples in the meantime, [...]
--- OUTSIDE RECORDS SUMMARY | 2018-01-06 17:55 | XMS REPORT | Encounter Summary ---
Author Author [facility] Organization [facility] Address Unknown Phone Unavailable Care Team Providers Care Rock Duster Name Role Phone Belia Reid MD PCP Reason for Referral * Consult, Test & Treat (Routine) Status Reason Specialty Diagnoses / Referred By Referred To Procedures Contact Contact New Request Specialty Pulmonology Diagnoses Calvin Tripp Uk[facility] Im Pulmonary Services Uncontrolled GREENKEEPER Ortho and Medical Required type 2 diabetes [address] mellitus with [address] hyperglycemia, MS 2018 [place] [address] long-term [address] Phone: current use of insulin (HCC) [phone] Reason for Visit * Reason Comments Diabetes Encounter Details Date Type Department Care Team Description 11/13/2017 Office Visit [facility] Calvin Tripp APRN Uncontrolled type 2 Physicians - Internal [address] diabetes mellitus with Medicine MS 2018 hyperglycemia, [place] [address] long-term current use of Pavilion Level 5A [phone] insulin (HCC) (Primary [address] Dx) [place] [address] Social History Tobacco Use Types [...] of your long acting insulin. Please contact [facility] for any questions or abnormal glucose values (above 300 or less than 70 repeatedly). [phone]. My nurse can be reached at [phone]. Health goals for a person with diabetes [...] of each month from 6-7:30pm at the [facility], [address], [address], [place] [address]. [facility] Diabetes Classes and Education Opportunities To schedule [...] mo f/u to her initial appointment at [facility]. She was hospitalized for COPD exacerbation and has used steroids in the past month. PCP is Dr. Reid in [place], [place]. Referred by urology as she has [...] defib placed internally after she had an IA during surgery for nasal septum surgery. She [...] due to pain Complications of DM: CAD: IA in 2010 during surgery for deviated septum [...] declines foot exam, says she has seen suit attendant this month Assessment and Plan: Diabetes mellitus [...] declines today as she has seen her suit attendant this month Supportive care for diabetes: Die Out Worker/dietitian (recommended annually): met with Marlene this summer [...] needle blood sugar diagnostic test strip lancets [facility] Patient Instructions Goals we discussed today: Getting [...] of your long acting insulin. Please contact [facility] for any questions or abnormal glucose values (above 300 or less than 70 repeatedly). [phone]. My nurse can be reached at [phone]. Health goals for a person with diabetes [...] of each month from 6-7:30pm at the [facility], [address], [address], [place] [address]. [facility] Diabetes Classes and Education Opportunities To schedule Diabetes Education please call , Option 3 Contact your insurance company to determine coverage for diabetes education. Future Appointments Date Time Provider Department [place] 12/12/2017 11:00 AM Marlene Fan IMSANDEEP [facility] IM 03/20/2018 1:00 PM Nathan Crenshaw MD QVIMDIAB [facility] IM 04/02/2018 10:15 AM Mena Benavides MD UROLGYCL [facility] Urology 05/09/2018 9:00 AM Calvin Tripp APRN IMDIABTS [facility] IM in this encounter Plan of [...] POC 241 IN CLINIC Performing Organization [facility] Number [facility] * POC HEMOGLOBIN A1C (11/13/2017) Poc Hemoglobin A1C 10.0 IN CLINIC Specimen Blood Performing Organization [facility] in this encounter Visit Diagnoses Diagnosis Uncontrolled type 2 diabetes mellitus with hyperglycemia, without long-term current use of insulin (HCC) - Primary
--- OUTSIDE RECORDS SUMMARY | 2018-01-06 17:55 | XMS REPORT | Clinical Summary ---
Author Author [facility] Organization [facility] Address Unknown Phone Unavailable Care Team Providers Care Chief Operating Officer Name Role Phone Belia Reid MD PCP Source Comments Some departments are not documenting in the electronic medical record. If you do not see the information that you expected, contact Release of Information in the Health Information Management department at [phone] for further assistance in locating additional records.[facility] Allergies Active Allergy Reactions Severity [...] 3 11/14/19 Active daily as needed. 18 Active Problems Problem Noted Date Type [...] recently Kidney stones 08/24/2016 Overview: -- 10/15/16: Consumer Insights Intern evaluation non-obstructing stone. CT shows a 4.6 [...] Endocrinology, Metabolism Calvin Tripp APRN Other ([place]) & Genetics 11/14/2017 Telephone Endocrinology, Metabolism Calvin [...] of insulin ([facility]) GLUCOSE METER DOWNLOAD Routine 11/13/2017 Uncontrolled type 2 12:00 AM CDT diabetes mellitus with hyperglycemia, without long-term current use of insulin ([facility]) from Last 3 Months Results * POC GLUCOSE QUANTITATIVE BLOOD (11/13/2017) Glucose, POC [facility] Performing Organization Address City/[facility] * GLUCOSE METER DOWNLOAD (11/13/2017) Narrative Performed At Performing Organization Address City/State/Zipcode Phone Number IN CLINIC * POC HEMOGLOBIN A1C (11/13/2017) Poc Hemoglobin A1C 10.0 IN CLINIC Specimen Blood Performing Organization Address City/[facility] Phone [facility] from Last 3 Months
--- OUTSIDE RECORDS SUMMARY | 2018-01-06 17:55 | XMS REPORT | Encounter Summary ---
Author Author [facility] Organization [facility] Address Unknown Phone Unavailable Care Team Providers Care Director Telemetry Name Role Phone Belia Reid MD PCP Reason for Visit * Reason Comments Other [facility] Encounter Details Date Type Department Care Team Description 11/14/2017 Telephone [facility] Calvin Tripp APRN Other ([facility]) Physicians - Internal [address] [facility] Medicine [address] [place] [address] [facility] [phone] [address] [facility] [place] [address] Social History Tobacco Use Types Packs/Day Years Used Date Never Smoker Smokeless Tobacco: Never Used Alcohol Use Drinks/Week oz/Week Comments No 0 Standard 0.0 drinks or equivalent Sex Assigned at Date Recorded Not on file as of this encounter Miscellaneous Notes * Telephone Encounter - Víctor Khalil LPN - 12/26/2017 10:38 AM CDT Pharmacy called. Needed clarification for Lantus Rx. Patient has been taking 38 units. Rx states 20. Gave verbal order to reflect what patient is taking. * Telephone Encounter - Víctor Khalil LPN [...]
--- NOTE | 2018-01-06 18:08 | ED GU-Female ---
General Chief Complaint: -Female Stated Complaint: UTI Source: patient History of Present Illness Date Seen by Provider: Jan 06, 2018 Time Seen by Provider: 18:05 Initial Comments PT ARRIVES VIA POV FROM HOME THINKS SHE HAS A UTI STATES SHE HAS HAD BILATERAL FLANK PAIN FOR A COUPLE OF WEEKS, BUT SHE FELL A COUPLE OF WEEKS AGO, AND HAD SOME LOWER BACK PAIN BUT MOST OF HER PAIN WAS IN UPPER BACK SAW DR. REVELES 1 1/2 WEEKS AGO FOR THAT PROBLEM AND HAD OUTPATIENT CT SCAN OF THORACIC SPINE 01/02 WHICH SHOWED ONLY AN OLD T 12 COMPRESSION THAT HAD BEEN TREATED WITH KYPHOPLASTY. NO ACUTE INJURY PT WAS PRESCRIBED FLEXERIL AND SHE HAS BEEN TAKING IBUPROFEN PT STATES THAT SHE IS SUPPOSED TO START PHYSICAL THERAPY ON HER BACK THE END OF JANUARY SHE STATES PAIN IN LOWER BACK HAS BEEN WORSE THE LAST 3-4 DAYS AND IS NOW WRAPPING AROUND TO HER LOWER ABDOMEN TONIGHT WHEN SHE URINATED, IT EASED THE PAIN IN HER BACK AND LOWER ABDOMEN SO SHE THOUGHT SHE MUST HAVE A UTI NO BURNING ON URINATION HAD TEMP OF 100 YESTERDAY NO NAUSEA/VOMITING NO RELIEF WITH IBUPROFEN X 2, FLEXERIL X 2 TODAY PT HAS BEEN MOVING THE LAST COUPLE OF WEEKS AND HAS BEEN UNPACKING BOXES ALL DAY TODAY. HAS HISTORY OF FREQUENT UTI'S PT WITH MULTITUDE OF ER VISITS--12 IN 2018 MULTITUDE OF SOMATIC PAIN COMPLAINTS, AND HEADACHES PT HAS HISTORY OF FIBROMYALGIA PCP:DR. REVELES Allergies and Home Medications Allergies Coded Allergies: milk (Verified Allergy, Intermediate, 10/16/17) hydromorphone (Verified Allergy, Mild, STRONG RASH, 06/08/16) Penicillins (Unverified Allergy, Unknown, Pt has received Cefepime & Ceftriaxone in the past w/o issue, 01/18/17) Sulfa (Sulfonamide Antibiotics) (Verified Allergy, Unknown, 06/08/16) aspirin (Verified Adverse Reaction, Mild, ASPIRIN SENSITIVE, 06/08/16) sumatriptan (Verified Adverse Reaction, Mild, PALPITATIONS, 06/08/16) Uncoded Allergies: EGG WHITES (Allergy, Unknown, 10/16/17) Home Medications Amitriptyline HCl 50 Mg Tablet, 50 MG PO DAILY, (Reported) Azithromycin 250 Mg Tablet, 250 MG PO UD TAKE 2 TABLETS ON DAY ONE THEN TAKE 1 TABLET DAILY FOR FOUR MORE DAYS Prescribed by: EARNESTINE CAMARGO on 8/262216 Benzonatate 100 Mg Capsule, 1-2 TAB PO TID Prescribed by: PETER ASHLEY on 07/15/172054 Buspirone HCl 5 Mg Tablet, 5 MG PO TID, (Reported) Glimepiride 4 Mg Tablet, 4 MG PO BID, (Reported) Lorazepam 0.5 Mg Tablet, 0.5 MG PO TID PRN for ANXIETY, (Reported) Methocarbamol 500 Mg Tablet, 500 MG PO QID Prescribed by: PETER ASHLEY on 10/02/171858 Methylprednisolone 4 Mg Tab.ds.pk, 4 MG PO UD Prescribed by: PETER ASHLEY on 07/15/172054 Methylprednisolone 4 Mg Tab.ds.pk, 4 MG PO UD Prescribed by: PETER ASHLEY on 10/02/171858 Methylprednisolone 4 Mg Tab.ds.pk, 4 MG PO UD Prescribed by: EARNESTINE CAMARGO on 10/27/172216 Omeprazole 40 Mg Capsule.dr, 40 MG PO BID, (Reported) Ondansetron 4 Mg Tab.rapdis, 4 MG PO Q4H Prescribed by: PETER ASHLEY on 10/02/171858 Pramipexole Di-HCl 1 Mg Tablet, 1 MG PO DAILY, (Reported) Promethazine HCl/Codeine 118 Ml Syrup, 5 ML PO Q4H Prescribed by: PETER ASHLEY on 07/15/172054 Propranolol HCl 60 Mg Tablet, 60 MG PO BID, (Reported) Sucralfate 1 Gm/10 Ml Oral.susp, 1 GM PO QID AC AND HS Prescribed by: PETER ASHLEY on 07/15/172054 Patient Home Medication List Home Medication List Reviewed: Yes Review of Systems Review of Systems Constitutional: see HPI, fever Respiratory: no symptoms reported Cardiovascular: no symptoms reported Gastrointestinal: see HPI, abdominal pain Genitourinary: see HPI, flank pain Musculoskeletal: see HPI, back pain Skin: no symptoms reported Psychiatric/Neurological: No Symptoms Reported Endocrine: No Symptoms Reported Hematologic/Lymphatic: No Symptoms Reported Past Sfptaix-Ptdfsw-Rjemko Hx Patient Social History Alcohol Use: Denies Use Recreational Drug Use: No Smoking Status: Never a Smoker 2nd Hand Smoke Exposure: Yes Recent Foreign Travel: No Contact w/Someone Who Travel: No Recent Hopitalizations: Yes (10/2017) Immunizations Up To Date Tetanus Booster (TDap): Unknown PED Vaccines UTD: No Date of Pneumonia Vaccine: May 24, 2012 Date of Influenza Vaccine: Jan 25, 2016 Seasonal Allergies Seasonal Allergies: Yes Past Medical History Surgeries: Yes (OVARIAN CYSTS REMOVEDX 4; CYST FROM BACK REMOVED; CORNELIUS FUNDOPLICATION; EGD'S/ESOPHAGEAL DILATIONS/COLONOSCOPIES/POLYPECTOMIES; CATARACTS AND YAG PROCEDURE; ENT SURGERY; T12 KYPHOPLASTY) Abdominal, Appendectomy, Cardiac, Defibrillator, Gallbladder, Hysterectomy, Oophorectomy, Orthopedic, Pacemaker, Tonsillectomy Respiratory: Yes (COPD, wears oxygen AT HS AND PRN) Asthma, Pneumonia, Chronic Bronchitis, Sleep Apnea, COPD Currently Using CPAP: No Currently Using BIPAP: No Cardiac: Yes (PACEMAKER/DEFIBRILLATOR;HX OF CARDIAC ARREST DURING ENT SURGERY) High Cholesterol, Irregular Heartbeat Neurological: Yes (PERIPHERAL NEUROPATHY) Headaches /Migraines, Neuropathy 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 Disorders: No Female 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 Disorders: Denies 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: Hysterectomy, Menopausal Sexually Transmitted Disease: No Genitourinary: Yes Kidney Infection, Bladder Infection, Kidney Stones, UTI-Chronic Gastrointestinal: Yes (S/P CORNELIUS FUNDOPLICATION; ESOPHAGEAL STRICTURES/ DILATIONS; DYSPHAGIA) Gastroesophageal Reflux, Diverticulosis, Hemorrhoids, Polyps, C-Diff, Hiatal Hernia, Ulcer, Gall Bladder Disease, Irritable Bowel Musculoskeletal: Yes (RESTLESS LEG SYNDROME; CHRONIC NECK PAIN WITH RADICULOPATHY--RIGHT > LEFT; T12 COMPRESSION FX WITH KYPHOPLASTY) Degenerate Disk Disease, Arthritis, Fibromyalgia, Chronic Back Pain, Fractures Endocrine: Yes Diabetes, Non-Insulin dep HEENT: Yes Cataract Loss of Vision: Denies Hearing Impairment: Denies Cancer: No Psychosocial: Yes Anxiety, Depression Integumentary: Yes (CANDIDAL INTERTRIGO) Pruritis Blood Disorders: No Adverse Reaction/Blood Tranf: No Family Medical History Alzheimer's disease 19 FATHER Cardiovascular disease 19 FATHER 19 MOTHER Completed stroke 19 MOTHER Hypertension 19 FATHER 19 MOTHER Myocardial infarction 19 FATHER 19 MOTHER No Family History of: Diabetes mellitus Physical Exam Vital Signs Vital Signs - First Documented 01/06/18 17:58 Temp 97.5 Pulse 84 Resp 22 B/P (MAP) 155/95 (115) Pulse Ox 95 Capillary Refill : Height, Weight, BMI Height: 5'6.00" Weight: 214lbs. 0.0oz. 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 II-XII nml as tested, no motor/sensory deficits, alert, normal mood/affect, oriented x 3 Skin: normal color, warm/dry Progress/Results/Core Measures Suspected Sepsis SIRS Temperature: Pulse: Respiratory Rate: Blood Pressure / Mean: Results/Orders Lab Results Laboratory Tests Test 01/06/18 18:10 Range/Units Urine Color YELLOW Urine Clarity CLEAR Urine pH 5 5-9 Urine Specific [place] 1.020 1.016-1.022 Urine Protein 1+ H NEGATIVE Urine Glucose (UA) NEGATIVE NEGATIVE Urine Ketones 1+ H NEGATIVE Urine Nitrite NEGATIVE NEGATIVE Urine Bilirubin NEGATIVE NEGATIVE Urine Urobilinogen NORMAL NORMAL MG/DL Urine Leukocyte Esterase 3+ H NEGATIVE Urine RBC (Auto) 1+ H NEGATIVE Urine RBC 0-2 /HPF Urine WBC 10-25 H /HPF Urine Squamous Epithelial Cells 5-10 /HPF Urine Crystals NONE /LPF Urine Bacteria TRACE /HPF Urine Casts NONE /LPF Urine Mucus NEGATIVE /LPF Urine Culture Indicated YES My Orders Orders - PETER ASHLEY DO Ua Culture If Indicated (01/06/18 18:05) Urine Culture (01/06/18 18:10) Vital Signs/I&O 01/06/18 17:58 Temp 97.5 Pulse 84 Resp 22 B/P (MAP) 155/95 (115) Pulse Ox 95 Capillary Refill : Departure Impression Primary Impression: UTI (urinary tract infection) Additional Impression: Exacerbation of chronic back pain Disposition: 01 HOME, SELF-CARE Condition: Stable Departure-Patient Inst. Referrals: NANNETTE REVELES DO (PCP/Family) Primary Care Physician Patient Instructions: CHRONIC PAIN, Low Back Pain (DC), Urinary Tract Infection, Adult (DC) Add. Discharge Instructions: STOP FLEXERIL WHILE TAKING ROBAXIN STOP IBUPROFEN WHILE TAKING MOBIC LOTS OF CLEAR LIQUIDS FOLLOW UP WITH DR. REVELES IN 3-4 DAYS IF NO BETTER All discharge instructions reviewed with patient and/or family. Voiced understanding. Scripts Phenazopyridine HCl (Pyridium) 200 Mg Tablet 1 TAB PO TID for BLADDER DISCOMFORT, #15 TAB Prov: PETER ASHLEY DO 01/06/18 Methocarbamol (Robaxin) 500 Mg Tablet 500 MG PO QID for Muscle Spasms, #20 TAB Prov: PETER ASHLEY DO 01/06/18 Meloxicam (Mobic) 15 Mg Tablet 15 MG PO DAILY, #10 TAB Prov: PETER ASHLEY DO 01/06/18 Nitrofurantoin Monohyd/M-Cryst (Macrobid 100 mg Capsule) 100 Mg Capsule 100 MG PO BID, #30 CAP Prov: PETER ASHLEY DO 01/06/18 PETER ASHLEY DO Jan 06, 2018 18:08
[2018-01-06 18:33] LABS: BILIRUBIN,URINE NEGATIVE (NEGATIVE); CLARITY,URINE CLEAR; COLOR,URINE YELLOW; GLUCOSE, URINE (UA) NEGATIVE (NEGATIVE); KETONES,URINE 1+ (NEGATIVE); LEUKOCYTE ESTERASE ,URINE 3+ (NEGATIVE); NITRITE,URINE NEGATIVE (NEGATIVE); PH,URINE 5 (5-9); PROTEIN,URINE 1+ (NEGATIVE); UROBILINOGEN,URINE NORMAL (NORMAL)
[2018-01-06 18:52] LABS: BACTERIA,URINE TRACE /HPF; RBC,URINE 0-2 /HPF
[2018-01-06 18:58] VITALS: BP 155/95
[2018-01-06] MEDS ORDERED: METH500T PO (19:02)
[2018-01-06] MEDS ORDERED: MELO15TA14 PO (19:02)
[2018-01-06] MEDS ORDERED: NITR-65 PO (19:02)
[2018-01-06] MEDS ORDERED: PHEN-640 PO (19:03)
== END 2018-01-06 19:14 | disposition home or self-care (01) ==
LOC: EDUNIT# 17:50 → ER 17:51
DX: N39.0 Urinary tract infection, site not specified (principal); M54.5 Low back pain; G89.29 Other chronic pain; J44.9 Chronic obstructive pulmonary disease, unspecified; E78.00 Pure hypercholesterolemia, unspecified; G43.909 Migraine, unspecified, not intractable, without status migrainosus; K21.9 Gastro-esophageal reflux disease without esophagitis; E11.9 Type 2 diabetes mellitus without complications; F41.9 Anxiety disorder, unspecified; F32.9 Major depressive disorder, single episode, unspecified; Z87.442 Personal history of urinary calculi; Z90.710 Acquired absence of both cervix and uterus; Z88.0 Allergy status to penicillin; Z88.2 Allergy status to sulfonamides; Z88.6 Allergy status to analgesic agent; Z88.5 Allergy status to narcotic agent; Z91.011 Allergy to milk products; Z79.84 Long term (current) use of oral hypoglycemic drugs; Z90.49 Acquired absence of other specified parts of digestive tract; Z98.890 Other specified postprocedural states; Z90.89 Acquired absence of other organs; Z95.0 Presence of cardiac pacemaker
CPT/HCPCS: 81000; 87088; 99282

== ENCOUNTER → 2018-01-13 | Outpatient (CLI) | payer MEDICARE ==
[~2018-01-13] MED LIST changes: +MELO15TA14 PO
== END ==
LOC: CARD 08:21
PROVIDERS: ATTEND Nurse Practitioner Family
DX: I47.1 Supraventricular tachycardia (principal); R00.2 Palpitations; I77.89 Other specified disorders of arteries and arterioles; R09.02 Hypoxemia
CPT/HCPCS: 93225; 93226

== ENCOUNTER → 2018-01-20 | Outpatient (CLI) | payer MEDICARE ==
--- NOTE | 2018-01-20 12:07 | Diagnostic Imaging Report ---
CLINICAL INDICATION: Patient had neck injury in high school that caused her pain ever since but recently has fallen a week ago and pain is getting worse in neck, especially last two days. Patient has trouble moving right arm and having pain down right arm and down back. EXAM: X-ray of the cervical spine, four views including swimmer's view and odontoid views. COMPARISON: X-ray of the cervical spine dated 10/08/2016. CT scan of the cervical spine dated 12/12/2017. FINDINGS: Stable straightening of the cervical spine posture centered at the C4-C5 level. There is no interval acute cervical spine fracture or dislocation. There are stable hypertrophic spurs anteriorly which are worse at the C5-C6 level. There is facet arthropathy. Odontoid views show no significant abnormality. There is stable ytzqwxcy-ic-ymjgfm loss of intervertebral disc height at the C5-C6 level. There is no prevertebral soft tissue swelling. IMPRESSION: 1.: There is no x-ray evidence of acute cervical spine fracture or dislocation. 2: There is stable straightening of the cervical spine and multilevel cervical spine degenerative disease. Dictated by: Dictated on workstation # [id number]
== END ==
LOC: RAD 10:04
PROVIDERS: ATTEND Nurse Practitioner Family
DX: M47.22 Other spondylosis with radiculopathy, cervical region (principal); W19.XXXA Unspecified fall, initial encounter
CPT/HCPCS: 72040

== ENCOUNTER 2018-01-27 09:51 | Emergency (ER) | payer MEDICARE ==
[~2018-01-27] VITALS: Ht 165.1 cm; Wt 98.0 kg
--- OUTSIDE RECORDS SUMMARY | 2018-01-27 09:56 | XMS REPORT | Encounter Summary ---
Author Author [facility] Organization [facility] Address Unknown Phone Unavailable Care Team Providers Care Locomotive Oiler Name Role Phone Belia eRid MD PCP Reason for Visit * Reason Comments Other [facility] Encounter Details Date Type Department Care Team Description 11/14/2017 Telephone [facility] Calvin Tripp APRN Other ([facility] [place]) Physicians - Internal [address] [facility] Medicine MS [address] [place] [address] [facility] [phone] 1998 [address] [place] [address] Social History Tobacco Use Types [...] if she should increase insulin. Routing to Tpi Tripp APRN For advisement. in this encounter Plan of Treatment Not on fileas of this encounter Goals Patient Goal Type Goal Recent Progress Patient-Stat Author ed? Result Component HEMOGLOBIN A1C < 7.5 10.0 (11/13/2017 12:00 AM No MYRTLE Tripp) NAHEED Simpson as of this encounter Visit Diagnoses Not on filein this encounter
--- OUTSIDE RECORDS SUMMARY | 2018-01-27 09:56 | XMS REPORT | Encounter Summary ---
Author Author [facility] Address Unknown Phone Unavailable Care Team Providers Care Automatic Punch Press Operator Name Role Phone Belia Reid MD PCP Reason for Referral * Consult, Test & Treat (Routine) Status Reason Specialty Diagnoses / Referred By Referred To Procedures Contact Contact New Request Specialty Pulmonology Diagnoses Calvin Tripp [facility] Uncontrolled TAG PRESS OPERATOR Ortho and Medical Required type 2 diabetes [address] mellitus with [address] hyperglycemia, [place] [address] [place] [address] long-term [address] Phone: current use of insulin (HCC) [phone] Reason for Visit * Reason Comments Diabetes Encounter Details Date Type Department Care Team Description 11/13/2017 Office Visit [facility] Calvin Tripp APRN Uncontrolled type 2 Physicians - Internal [address] diabetes mellitus with Medicine MS 2018 hyperglycemia, [place] [address] long-term current use of [address] Level 5A [phone] insulin (HCC) (Primary [address] Dx) [place] [address] Social History Tobacco Use Types [...] of your long acting insulin. Please contact [facility] for any questions or abnormal glucose values (above 300 or less than 70 repeatedly). [phone]. My nurse can be reached at [phone]. Health goals for a person with diabetes [...] of each month from 6-7:30pm at the [facility], [address], [address], [place] [address]. [facility] Classes and Education Opportunities [...] mo f/u to her initial appointment at [facility] [place]. She was hospitalized for COPD exacerbation and has used steroids in the past month. PCP is Dr. Reid in [place], [place]. Referred by urology as she has [...] defib placed internally after she had an TN during surgery for nasal septum surgery. She [...] due to pain Complications of DM: CAD: TN in 2010 during surgery for deviated septum [...] declines foot exam, says she has seen communications clerk this month Assessment and Plan: Diabetes mellitus [...] declines today as she has seen her communications clerk this month Supportive care for diabetes: Dental Secretary/dietitian (recommended annually): met with Marlene this summer [...] needle blood sugar diagnostic test strip lancets [facility] Patient Instructions Goals we discussed today: Getting [...] of your long acting insulin. Please contact [facility] for any questions or abnormal glucose values (above 300 or less than 70 repeatedly). [phone]. My nurse can be reached at [phone]. Health goals for a person with diabetes [...] Group Monthly DM Support Group facilitated by [employer]. There is no fee or Registration required for attendance. Meets the first Saturday of each month from 6-7:30pm at the [facility], [address], [address], [place] [address]. [facility] Classes and Education Opportunities To schedule Diabetes Education please call , Option 3 Contact your insurance company to determine coverage for diabetes education. Future Appointments Date Time Provider Department Art 12/12/2017 11:00 AM Marlene Fan [facility] IM 03/20/2018 1:00 PM Nathan Crenshaw MD QVIMDIAB [facility] IM 04/02/2018 10:15 AM Mena Benavides MD UROLGYCL [facility] Urology 05/09/2018 9:00 AM Calvin Tripp APRN IMSANDEEP [facility] IM in this encounter Plan of Treatment Name Priority Associated Diagnoses Order Schedule AMB REFERRAL TO PULMONARY Routine Uncontrolled type 2 Ordered: 2017 diabetes mellitus with hyperglycemia, without long-term current use of insulin (HCC) as of this encounter Goals Patient Goal Type Goal Recent Progress Patient-Stat Author ed? Result Component HEMOGLOBIN A1C < 7.5 10.0 (11/13/2017 12:00 AM Leonela Tripp CDT) NAHEED Simpson as of this encounter Procedures Procedure Name Priority Date/Time Associated Diagnosis Comments POC GLUCOSE QUANTITATIVE Routine 11/13/2017 Uncontrolled type 2 Results for this BLOOD 12:00 AM VERONICAT diabetes mellitus with procedure are in the [...] POC [facility] Performing Organization Address [facility] * POC HEMOGLOBIN A1C (11/13/2017) Poc Hemoglobin A1C 10.0 [facility]IC Specimen Blood Performing Organization Address City/State/[facility] Phone Number IN CLINIC in this encounter Visit Diagnoses Diagnosis Uncontrolled type 2 diabetes mellitus with hyperglycemia, without long-term current use of insulin (HCC) - Primary
--- OUTSIDE RECORDS SUMMARY | 2018-01-27 09:56 | XMS REPORT | Encounter Summary ---
Author Author [facility] Organization [facility] Address Unknown Phone Unavailable Care Team Providers Care Production Control Planner Name Role Phone Belia Reid MD PCP Reason for Visit * Reason Comments Other [facility] Encounter Details Date Type Department Care Team Description 11/18/2017 Telephone [facility] Calvin Tripp APRN Other ([facility]) Physicians - Internal [address] [facility] Medicine [address] [place] [address] [facility] [phone] [address] [place] [address] Social History Tobacco Use Types [...] know pen needles have been sent to [facility]. Informed her she could come by in the meantime if she needed samples. * Telephone Encounter - Calvin Tripp APRN - 11/19/2017 9:49 AM CDT I have ordered some for her to [facility]. If she needs samples in the meantime, [...]
--- OUTSIDE RECORDS SUMMARY | 2018-01-27 09:56 | XMS REPORT | Clinical Summary ---
Author Author [facility] Organization [facility] Address Unknown Phone Unavailable Care Team Providers Care Hostess Cashier Name Role Phone Belia Reid MD PCP Source Comments Some departments are not documenting in the electronic medical record. If you do not see the information that you expected, contact Release of Information in the Health Information Management department at [phone] for further assistance in locating additional records.[facility] Allergies Active Allergy Reactions Severity [...] recently Kidney stones 08/24/2016 Overview: -- 10/15/16: Ocular Care Technician evaluation non-obstructing stone. CT shows a 4.6 [...] Endocrinology, Metabolism Calvin Tripp APRN Other ([facility] [place]) & Genetics 11/14/2017 Telephone Endocrinology, Metabolism Calvin [...] C SCREENING 1945 PHYSICAL (COMPREHENSIVE) 1953 EXAM DILATED EYE EXAM 1964 DTAP/TDAP VACCINES (1 - 1964 Tdap) FOOT EXAM 1964 MICROALBUMIN 1964 BREAST CANCER SCREENING 1986 COLORECTAL CANCER 1996 SCREENING SHINGLES RECOMBINANT 1996 VACCINE (1 of 2) OSTEOPOROSIS 06/16/2011 SCREENING/MONITORING PNEUMONIA (PCV13/PPSV23) 06/16/2011 VACCINES (1 of 2 - PCV13) INFLUENZA VACCINE 10/02/2017 HBA1C 05/13/2018 11/13/2017, 07/12/2017, 04/01/2017, Additional history exists Goals Patient Goal Type Goal Recent Progress Patient-Stat Author ed? Result Component HEMOGLOBIN A1C < 7.5 10.0 (11/13/2017 12:00 AM Leonela Tripp CDT) NAHEED Simpson Procedures Procedure Name Priority Date/Time Associated Diagnosis Comments POC GLUCOSE QUANTITATIVE Routine 11/13/2017 Uncontrolled type 2 Results for this BLOOD 12:00 AM CDT diabetes mellitus with procedure are in the hyperglycemia, without results section. long-term current use of insulin ([facility]) POC HEMOGLOBIN A1C Routine 11/13/2017 Uncontrolled type 2 Results for this 12:00 AM CDT diabetes mellitus with procedure are in the hyperglycemia, without results section. long-term current use of insulin ([facility]) GLUCOSE METER DOWNLOAD Routine 11/13/2017 Uncontrolled type 2 12:00 AM CDT diabetes mellitus with hyperglycemia, without long-term current use of insulin ([facility]) from Last 3 Months Results * POC GLUCOSE QUANTITATIVE BLOOD (11/13/2017) Glucose, POC [facility] Performing Organization Address City/[facility] Phone Number [facility] * GLUCOSE METER DOWNLOAD (11/13/2017) Narrative Performed At Performing Organization Address City/[facility] * POC HEMOGLOBIN A1C (11/13/2017) Poc Hemoglobin A1C 10.0 IN CLINIC Specimen Blood Performing Organization Address City/[facility] Phone Number [facility] from Last 3 Months
[2018-01-27] MEDS ORDERED: PROCHLORPERAZINE 10 MG/2ML INJ (COMPAZINE) IM ONE (11:00)
[2018-01-27] MEDS ORDERED: diphenhydrAMINE 50 MG/ML INJ (BENADRYL) IM ONE (11:00)
[2018-01-27] MEDS ORDERED: KETOROLAC 60 MG/2 ML VIAL IM ONE (11:00)
[2018-01-27] MEDS ORDERED: MELO7.5T46 PO (11:05)
--- NOTE | 2018-01-27 11:05 | ED General ---
General Chief Complaint: General Problems/Pain Stated Complaint: HEADACHE;SHOULDER PAIN Nursing Triage Note: C/O OF MIGRAINE FOR 2 WEEKS; ALSO C/O R-SHOULDER PAIN. STATES WAITING TO GET APPT. WITH ORTHO [facility] FOR SHOULDER. DOES NOT HAVE ANY MORE PAIN MEDS OR FLEXERIL. Nursing Sepsis Screen: No Definite Risk Source of Information: Patient Exam Limitations: No Limitations History of Present Illness Date Seen by Provider: Jan 27, 2018 Time Seen by Provider: 11:02 Initial Comments To ER with reports of a migraine for about 2 weeks. She also complains of right shoulder pain. She states that she is waiting to see orthophoric states to evaluate the right shoulder. Timing/Duration: Other Severity: Moderate Allergies and Home Medications Allergies Coded Allergies: milk (Verified Allergy, Intermediate, 10/16/17) hydromorphone (Verified Allergy, Mild, STRONG RASH, 06/08/16) Penicillins (Unverified Allergy, Unknown, Pt has received Cefepime & Ceftriaxone in the past w/o issue, 01/18/17) Sulfa (Sulfonamide Antibiotics) (Verified Allergy, Unknown, 06/08/16) aspirin (Verified Adverse Reaction, Mild, ASPIRIN SENSITIVE, 06/08/16) sumatriptan (Verified Adverse Reaction, Mild, PALPITATIONS, 06/08/16) Uncoded Allergies: EGG WHITES (Allergy, Unknown, 10/16/17) Home Medications Amitriptyline HCl 50 Mg Tablet, 50 MG PO DAILY, (Reported) Azithromycin 250 Mg Tablet, 250 MG PO UD TAKE 2 TABLETS ON DAY ONE THEN TAKE 1 TABLET DAILY FOR FOUR MORE DAYS Prescribed by: EARNESTINE CAMARGO on 10/27/172216 Benzonatate 100 Mg Capsule, 1-2 TAB PO TID Prescribed by: PETER ASHLEY on 07/15/172054 Buspirone HCl 5 Mg Tablet, 5 MG PO TID, (Reported) Glimepiride 4 Mg Tablet, 4 MG PO BID, (Reported) Lorazepam 0.5 Mg Tablet, 0.5 MG PO TID PRN for ANXIETY, (Reported) Meloxicam 15 Mg Tablet, 15 MG PO DAILY Prescribed by: PETER ASHLEY on 01/06/18 190 Methocarbamol 500 Mg Tablet, 500 MG PO QID Prescribed by: PETER ASHLEY on 10/02/17 1859 Methocarbamol 500 Mg Tablet, 500 MG PO QID Prescribed by: PETER ASHLEY on 01/06/181901 Methylprednisolone 4 Mg Tab.ds.pk, 4 MG PO UD Prescribed by: PETER ASHLEY on 07/15/172054 Methylprednisolone 4 Mg Tab.ds.pk, 4 MG PO UD Prescribed by: PETER ASHLEY on 10/02/171858 Methylprednisolone 4 Mg Tab.ds.pk, 4 MG PO UD Prescribed by: EARNESTINE CAMARGO on 10/27/172216 Nitrofurantoin Monohyd/M-Cryst 100 Mg Capsule, 100 MG PO BID Prescribed by: PETER ASHLEY on 01/06/181901 Omeprazole 40 Mg Capsule.dr, 40 MG PO BID, (Reported) Ondansetron 4 Mg Tab.rapdis, 4 MG PO Q4H Prescribed by: PETER ASHLEY on 10/02/171858 Phenazopyridine HCl 200 Mg Tablet, 1 TAB PO TID Prescribed by: PETER ASHLEY on 01/06/181902 Pramipexole Di-HCl 1 Mg Tablet, 1 MG PO DAILY, (Reported) Promethazine HCl/Codeine 118 Ml Syrup, 5 ML PO Q4H Prescribed by: PETER ASHLEY on 07/15/172054 Propranolol HCl 60 Mg Tablet, 60 MG PO BID, (Reported) Sucralfate 1 Gm/10 Ml Oral.susp, 1 GM PO QID AC AND HS Prescribed by: PETER AHSLEY on 07/15/172054 Patient Home Medication List Home Medication List Reviewed: Yes Review of Systems Review of Systems Constitutional: see HPI EENTM: see HPI Respiratory: no symptoms reported Cardiovascular: no symptoms reported Genitourinary: no symptoms reported Musculoskeletal: see HPI Skin: no symptoms reported Psychiatric/Neurological: No Symptoms Reported Past Coapeqn-Kzunhs-Fvdiuo Hx Patient Social History 2nd Hand Smoke Exposure: Yes Recent Foreign Travel: No Contact w/Someone Who Travel: No Recent Infectious Disease Expo: No Recent Hopitalizations: Yes (10/2017) Immunizations Up To Date Tetanus Booster (TDap): Unknown PED Vaccines UTD: No Date of Pneumonia Vaccine: May 24, 2012 Date of Influenza Vaccine: Jan 25, 2016 Seasonal Allergies Seasonal Allergies: Yes Past Medical History Surgeries: Yes Abdominal, Appendectomy, Cardiac, Defibrillator, Gallbladder, Hysterectomy, Oophorectomy, Orthopedic, Pacemaker, Tonsillectomy Respiratory: Yes (COPD, wears oxygen AT HS AND PRN) Asthma, Pneumonia, Chronic Bronchitis, Sleep Apnea, COPD Currently Using CPAP: No Currently Using BIPAP: No Cardiac: Yes (PACEMAKER/DEFIBRILLATOR;HX OF CARDIAC ARREST DURING ENT SURGERY) High Cholesterol, Irregular Heartbeat Neurological: Yes (PERIPHERAL NEUROPATHY) Headaches /Migraines, Neuropathy 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 Disorders: No Female 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 Disorders: Denies [employer] History: Hysterectomy, Menopausal Sexually Transmitted Disease: No Genitourinary: Yes Kidney Infection, Bladder Infection, Kidney Stones, UTI-Chronic Gastrointestinal: Yes (S/P CORNELIUS FUNDOPLICATION; ESOPHAGEAL STRICTURES/ DILATIONS; DYSPHAGIA) Gastroesophageal Reflux, Diverticulosis, Hemorrhoids, Polyps, C-Diff, Hiatal Hernia, Ulcer, Gall Bladder Disease, Irritable Bowel Musculoskeletal: Yes Degenerate Disk Disease, Arthritis, Fibromyalgia, Chronic Back Pain, Fractures Endocrine: Yes Diabetes, Non-Insulin dep HEENT: Yes Cataract Loss of Vision: Denies Hearing Impairment: Denies Cancer: No Psychosocial: Yes Anxiety, Depression Integumentary: Yes (CANDIDAL INTERTRIGO) Pruritis Blood Disorders: No Adverse Reaction/Blood Tranf: No Family Medical History Alzheimer's disease 19 FATHER Cardiovascular disease 19 FATHER 19 MOTHER Completed stroke 19 MOTHER Hypertension 19 FATHER 19 MOTHER Myocardial infarction 19 FATHER 19 MOTHER No Family History of: Diabetes mellitus Physical Exam Vital Signs Vital Signs - First Documented 01/27/18 10:47 Temp 97.4 Pulse 69 Resp 18 B/P (MAP) 188/79 (115) O2 Delivery Room Air Capillary Refill : Less Than 3 Seconds Height, Weight, BMI Height: 5'5.00" Weight: 216lbs. 0oz. 97.025112kl; 34.5 BMI Method:Stated General Appearance: No Apparent Distress, WD/WN, Other (wearing dark sunglasses inside) Eyes: Bilateral Eye Normal Inspection, Bilateral Eye PERRL Neck: Full Range of Motion Respiratory: Normal Breath Sounds, No Accessory Muscle Use, No Respiratory Distress Gastrointestinal: Normal Bowel Sounds, Non Tender, Soft Extremity: Other (she has an area of point tenderness to the right anterior shoulder) Neurologic/Psychiatric: Alert, Oriented x3, No Motor/Sensory Deficits Skin: Normal Color, Warm/Dry Progress/Results/Core Measures Suspected Sepsis Recent Fever Within 48 Hours: No Infection Criteria Present: None New/Unexplained Altered Menta: No Sepsis Screen: No Definite Risk SIRS Temperature:97.4 Pulse: 69 Respiratory Rate: 18 Blood Pressure 188 /79 Mean: 115 Results/Orders My Orders Orders - EARNESTINE CAMARGO APRN Ketorolac Injection (Toradol Injection) (01/27/18 11:00) Prochlorperazine Injection (Compazine In (01/27/18 11:00) Diphenhydramine Injection (Benadryl Inje (01/27/18 11:00) Vital Signs/I&O 01/27/18 10:47 Temp 97.4 Pulse 69 Resp 18 B/P (MAP) 188/79 (115) O2 Delivery Room Air Capillary Refill : Less Than 3 Seconds Blood Pressure Mean: 115 Departure Impression Primary Impression: Chronic headaches Qualified Codes: R51 - Headache Additional Impression: Right shoulder pain Qualified Codes: M25.511 - Pain in right shoulder Disposition: 01 HOME, SELF-CARE Condition: Stable Departure-Patient Inst. Decision time for Depature: 11:04 Referrals: NANNETTE REVELES DO (PCP/Family) Primary Care Physician Patient Instructions: Shoulder Pain (DC) Add. Discharge Instructions: Wear the sling as needed for comfort. Keep your appointment with Ortho 4 [facility] to evaluate the shoulder pain All discharge instructions reviewed with patient and/or family. Voiced understanding. Scripts Meloxicam (Meloxicam) 7.5 Mg Tablet 7.5 MG PO DAILY, #14 TAB Prov: EARNESTINE CAMARGO APRN 01/27/18 EARNESTINE CAMARGO APRN Jan 27, 2018 11:05
[2018-01-27 12:20] VITALS: BP 170/80
== END 2018-01-27 12:20 | disposition home or self-care (01) ==
LOC: EDUNIT# 09:51 → ER 09:52
DX: R51 Headache (principal); M25.511 Pain in right shoulder; J44.9 Chronic obstructive pulmonary disease, unspecified; K21.9 Gastro-esophageal reflux disease without esophagitis; E11.40 Type 2 diabetes mellitus with diabetic neuropathy, unspecified; F41.9 Anxiety disorder, unspecified; F32.9 Major depressive disorder, single episode, unspecified; E78.00 Pure hypercholesterolemia, unspecified; G47.30 Sleep apnea, unspecified; Z87.442 Personal history of urinary calculi; Z87.19 Personal history of other diseases of the digestive system; Z82.49 Family history of ischemic heart disease and other diseases of the circulatory system; Z87.440 Personal history of urinary (tract) infections; Z87.01 Personal history of pneumonia (recurrent); Z90.49 Acquired absence of other specified parts of digestive tract; Z90.89 Acquired absence of other organs; Z90.710 Acquired absence of both cervix and uterus; Z95.810 Presence of automatic (implantable) cardiac defibrillator; Z77.22 Contact with and (suspected) exposure to environmental tobacco smoke (acute) (chronic); Z88.5 Allergy status to narcotic agent; Z88.0 Allergy status to penicillin; Z88.2 Allergy status to sulfonamides; Z88.6 Allergy status to analgesic agent; Z88.8 Allergy status to other drugs, medicaments and biological substances; Z79.52 Long term (current) use of systemic steroids; Z79.4 Long term (current) use of insulin
CPT/HCPCS: 99284

== ENCOUNTER 2018-02-15 18:22 | Emergency (ER) | payer MEDICARE ==
[~2018-02-15] VITALS: Ht 162.6 cm; Wt 81.6 kg
[~2018-02-15 18:22] MED LIST changes: +MELO7.5T46 PO
--- OUTSIDE RECORDS SUMMARY | 2018-02-15 18:28 | XMS REPORT | Encounter Summary ---
Author Author [facility] Organization [facility] Address Unknown Phone Unavailable Care Team Providers Care Personnel Coordinator Name Role Phone Belia Reid MD PCP Reason for Visit * Reason Comments Medication Refill Encounter Details Care Team Description Date Type Department Calvin Tripp APRN [address] [place] [address] [phone] Uncontrolled type 2 diabetes mellitus with hyperglycemia ( HCC) (Primary Dx) 02/12/2018 Refill [facility] - Internal Medicine [facility] [address] [place] [address] Social History Date Tobacco Use Types Packs/Day Years Used Never Smoker Smokeless Tobacco: Never Used Alcohol Use Drinks/Week oz/Week Comments No 0 Standard 0.0 drinks or equivalent Sex Assigned at Date Recorded Not on file Industry Job Start Date Occupation Not on file Not on file Not on file Travel End Travel History Travel Start No recent travel history available. as of this encounter Plan of Treatment Not on fileas of this encounter Goals Goal Patient Associated Recent Progress Patient-Stat Author Goal Type Problems ed? HEMOGLOBIN A1C < 7.5 Result 10.0 (11/13/2017 Leonela Tripp, Edilberto 12:00 AM CDT) NAHEED Simpson as of this encounter Visit Diagnoses Diagnosis Uncontrolled type 2 diabetes mellitus with hyperglycemia (HCC) - Primary in this encounter
--- OUTSIDE RECORDS SUMMARY | 2018-02-15 18:28 | XMS REPORT | Encounter Summary ---
Author Author [facility] Organization [facility] Address Unknown Phone Unavailable Care Team Providers Care Booking Prizer Name Role Phone Belia Reid MD PCP Reason for Visit * Reason Comments Other [place] Encounter Details Care Team Description Date Type Department Calvin Tripp APRN [address] [place], [place] [id number] Other ([place]) 11/18/2017 Telephone [facility] - Internal Medicine [facility] [address] [place] [address] Social History Date Tobacco Use Types Packs/Day [...] travel history available. as of this encounter Miscellaneous Notes * Telephone Encounter - Víctor Khalil LPN - 11/19/2017 10:46 AM CDT Called patient. LVM letting her know pen needles have been sent to [facility]. Informed her she could come by in the meantime if she needed samples. * Telephone Encounter - Calvin Tripp APRN - 11/19/2017 9:49 AM CDT I have ordered some for her to [facility]. If she needs samples in the meantime, [...] HEMOGLOBIN A1C < 7.5 Result 10.0 (11/13/2017 No Josee, Component 12:00 AM CDT) NAHEED Simpson as of this encounter Visit Diagnoses Not on filein this encounter
--- OUTSIDE RECORDS SUMMARY | 2018-02-15 18:28 | XMS REPORT | Encounter Summary ---
Author Author [facility] Organization [facility] Address Unknown Phone Unavailable Care Team Providers Care Fur Repairer Name Role Phone Belia Reid MD PCP Reason for Visit * Reason Comments Medication Refill Encounter Details Care Team Description Date Type Department Calvin Tripp APRN [address] [place] [address] [phone] Uncontrolled type 2 diabetes mellitus with hyperglycemia ( HCC) (Primary Dx) 02/12/2018 Refill [facility] - Internal Medicine [facility] [address] [place] [address] Social History Date Tobacco Use Types Packs/Day [...]
--- OUTSIDE RECORDS SUMMARY | 2018-02-15 18:28 | XMS REPORT | Clinical Summary ---
Author Author [facility] Organization [facility] Address Unknown Phone Unavailable Care Team Providers Care Warp Spinner Name Role Phone Belia Reid MD PCP Source Comments Some departments are not documenting in the electronic medical record. If you do not see the information that you expected, contact Release of Information in the Health Information Management department at [phone] for further assistance in locating additional records.[facility] Allergies Comments Active Allergy Reactions Severity Noted Date Is ok to take 81mg asa Aspirin STOMACH Low 06/22/2016 UPSET, SEE COMMENTS Sumatriptan Succinate ANXIETY Low 06/22/2016 Penicillins RASH, ITCHING Medium 06/22/2016 Sulfa (Sulfonamide RASH, ITCHING Medium 06/22/2016 Antibiotics) Medications End Date Status Medication Sig Dispensed Refills Start Date Active propranolol (INDERAL) 40 Take 40 mg by 0 mg tablet mouth three times daily. Active pramipexole (MIRAPEX) 1 Take 1 mg by 0 mg tablet mouth daily. Active busPIRone (BUSPAR) 5 mg Take 5 mg by 0 tablet mouth three times daily. Active LORazepam (ATIVAN) 0.5 mg Take 1 Tab by 0 tabletIndications: takes mouth every 6 4-5 prn hours as needed for Nausea. Indications: takes 4-5 prn Active aspirin EC 81 mg tablet Take 81 mg by 0 mouth daily. Take with food. Active estradiol (ESTRACE) 0.01 Insert or 42.5 g 11 % (0.1 mg/g) vaginal Apply to 7 creamIndications: Vaginal vaginal area atrophy three times weekly. Apply as directed, apply at bedtime Active omeprazole DR(+) 0 (PRILOSEC) 40 mg capsule 7 Active other Take 1 Dose 0 medicationIndications: by mouth as could not remember name Needed. for cough with bronchitis Medication Name & Strength: cough syrup Dose(how many):as directed Frequency(how often): prn Indications: could not remember name for cough with bronchitis Active metFORMIN-XR(+) Take 4 360 tablet 3 (GLUCOPHAGE XR) 500 mg tablets by 8 extended release tablet mouth daily with dinner. Active Blood-Glucose Meter kit Use as 1 each 1 directed 8 daily. E11.65 Authorizing physician: Dr. Say Carrillo, III Preferred meter by insurance Active insulin glargine (LANTUS Inject twenty 30 mL 3 SOLOSTAR, BASAGLAR) 100 Units under 8 unit/mL (3 mL) injection the skin PEN daily. Active insulin pen needles Use one each 100 each 3 (disposable) (B-D TETO; as directed 8 ULTICARE MICRO) 32 gauge daily. Use x 5/32" pen needle with insulin injections. Active blood sugar diagnostic Use one strip 300 strip 3 test strip as directed 8 before meals and at bedtime. Active Alcohol Swabs (BD SINGLE Use as 100 each 3 USE SWABS REGULAR) directed 8 padmIndications: Uncontrolled type 2 diabetes mellitus with hyperglycemia (HCC) Active Blood-Glucose Calibrat Use as 1 each 3 Control cmpkIndications: directed 8 Uncontrolled type 2 diabetes mellitus with hyperglycemia (HCC) Active ACCU-CHEK COMPACT TEST Use 1 each as 100 strip 3 strpIndications: type 2 directed 8 diabetes mellitus daily. Active lancets MISCIndications: Use one each 100 each 3 Uncontrolled type 2 as directed 8 diabetes mellitus with daily as hyperglycemia (HCC) needed. 02/12/2018 Discontinued lancets MISC Use one each 300 each 3 as directed 8 daily as needed. Active Problems Problem Noted Date Type 2 diabetes mellitus with hyperglycemia, without long-term current use 07/12/2017 of insulin Slow urinary stream 08/24/2016 Overview: History of ER evaluation for Hopper catheter placement Recent increased S&S 08/22/16 04/01/17 PVR 7cc L ast Assessment & Plan: Continue to manage constipation- continue Citrucel and Miralax PRN Discontinue CIC - low residuals recently Kidney stones 08/24/2016 Overview: -- 10/15/16: Stitcher Feeder evaluation non-obstructing stone. CT shows a 4.6 [...] Continue Estrace cream 3 x weekly Encounters Care Team Description Date Type Specialty Calvin Tripp APRN Uncontrolled type 2 diabetes mellitus with hyperglycemia (HCC) (Primary Dx) 02/12/2018 Refill Endocrinology, Metabolism & Genetics Calvin Tripp APRN Uncontrolled type 2 diabetes mellitus with hyperglycemia (HCC) (Primary Dx) 02/12/2018 Refill Endocrinology, Metabolism & Genetics Calvin Tripp APRN Other ([place]) 11/18/2017 Telephone Endocrinology, Metabolism & Genetics from Last 3 Months Social History Date Tobacco Use Types Packs/Day Years Used Never Smoker Smokeless Tobacco: Never Used Alcohol Use Drinks/Week oz/Week Comments No 0 Standard 0.0 drinks or equivalent Sex Assigned at Date Recorded Not on file Industry Job Start Date Occupation Not on file Not on file Not on file Travel End Travel History Travel Start No recent travel history available. Last Filed Vital Signs Time Taken Vital Sign Reading 11/13/2017 12:52 PM CDT Blood Pressure 145/78 11/13/2017 12:52 PM CDT Pulse 66 - Temperature - - Respiratory Rate - - Oxygen Saturation - - Inhaled Oxygen - Concentration 11/13/2017 12:52 PM CDT Weight 99 kg (218 lb 3.2 oz) 11/13/2017 12:52 PM CDT Height 165.1 cm (5' 5") 11/13/2017 12:52 PM CDT Body Mass Index 36.31 Plan of Treatment Health Maintenance Due Date [...] 11/13/2017, 07/12/2017, 04/01/2017, Additional history exists Goals Goal Patient Associated Recent Progress Patient-Stat Author Goal Type Problems ed? HEMOGLOBIN A1C < 7.5 Result 10.0 (11/13/2017 No Josee, Component 12:00 AM CDT) NAHEED Simpson Results Not on filefrom Last 3 Months Insurance Payer Benefit Subscriber ID Type Phone Address Plan / Group HU[employer]NA MEDICARE HUMANA xxxxxxxxx Medicare CHOICE PPO Advance Directives Patient has advance care planning documents on file. For more information, please contact: [facility] [address] [place] [address]
[2018-02-15] MEDS ORDERED: diphenhydrAMINE 50 MG/ML INJ (BENADRYL) IM ONE (18:45)
[2018-02-15] MEDS ORDERED: KETOROLAC 60 MG/2 ML VIAL IM ONE (18:45)
[2018-02-15] MEDS ORDERED: ORPHENADRINE 60 MG/2 ML (NORFLEX) AMP IM ONE (18:45)
--- NOTE | 2018-02-15 18:55 | ED Headache ---
General Chief Complaint: Head/Cervical Problems Stated Complaint: MIGRAINE Nursing Triage Note: THE PT IS AMBULATORY TO THE ROOM WITHOUT DIFFICULTY. NO DISTRESS IS SEEN ON ARRIVAL. LOC IS NORMAL FOR THE PT. Nursing Sepsis Screen: No Definite Risk Source: patient, old records History of Present Illness Date Seen by Provider: Feb 15, 2018 Time Seen by Provider: 18:34 Initial Comments PT ARRIVES VIA POV FROM HOME C/O HEADACHE SINCE SATURDAY NIGHT 02/12/18 HEADACHE IS IN LEFT FRONTAL AREA AND RIGHT LATERAL/POSTERIOR NECK AND STARTING TO GO DOWN TO HER UPPER BACK AREA HAS CHRONIC HEADACHES --AT LEAST 4 A WEEK PT ALSO HAS CHRONIC NECK PAIN PT STATES SHE HAD MYELOGRAM OF NECK YESTERDAY AND HEADACHE HAS BEEN WORSE SINCE THEN HAS BLURRY VISION AND OCCASIONAL FLASHES OF LIGHT, WHICH IS CHRONIC WITH HER HEADACHE + NAUSEA OFF AND ON HAS 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 DID NOT HIT HEAD. ( ON REVIEW OF OLD CHART, ON HER VISIT ON 01/06/18, SHE HAD REPORTED AT THAT TIME SHE FELL " A COUPLE OF WEEKS AGO" AND HAD LOWER BACK AND UPPER BACK PAIN AT THAT TIME, AND HAD CT SCAN OF THORACIC SPINE WHICH SHOWED AN OLD T 12 COMPRESSION FX--TX WITH KYPHOPLASTY) HAS SEEN DR. REVELES A FEW TIMES FOR THIS AND HAS BEEN GIVEN RX FOR TRAMADOL, AND WAS REFERRED TO DR. ROY. LAST VISIT WAS OVER A WEEK AGO, AND DOES NOT HAVE A FOLLOW UP APPOINTMENT SCHEDULED SEEN HIM A COUPLE OF WEEKS AGO, WHO ORDERED THE MYELOGRAM. DOES NOT HAVE A FOLLOW UP APPOINTMENT SCHEDULED HAS NOT ATTEMPTED TO CONTACT EITHER OF THEM YESTERDAY OR TODAY FOR THIS PROBLEM. PT WITH A MULTITUDE OF VISITS--MANY FOR CHRONIC HEADACHES OR OTHER CHRONIC PROBLEMS AND CHRONIC SOMATIC COMPLAINTS. HAS HAD 14 VISITS IN 2017 PT HAS FILLED RX'S FOR TRAMADOL AND CELECOXIB ON 02/05, FOR MEDROL DOSE PACK , MELOXICAM 01/27/18, ROBAXIN 01/06 PCP: DR. REVELES ORTHOPEDIC SURGEON: DR. KIRILL Allergies and Home Medications Allergies Coded Allergies: milk (Verified Allergy, Intermediate, 10/16/17) hydromorphone (Verified Allergy, Mild, STRONG RASH, 06/08/16) Penicillins (Unverified Allergy, Unknown, Pt has received Cefepime & Ceftriaxone in the past w/o issue, 01/18/17) Sulfa (Sulfonamide Antibiotics) (Verified Allergy, Unknown, 06/08/16) aspirin (Verified Adverse Reaction, Mild, ASPIRIN SENSITIVE, 06/08/16) sumatriptan (Verified Adverse Reaction, Mild, PALPITATIONS, 06/08/16) Uncoded Allergies: EGG WHITES (Allergy, Unknown, 10/16/17) Home Medications Amitriptyline HCl 50 Mg Tablet, 50 MG PO DAILY, (Reported) Azithromycin 250 Mg Tablet, 250 MG PO UD TAKE 2 TABLETS ON DAY ONE THEN TAKE 1 TABLET DAILY FOR FOUR MORE DAYS Prescribed by: EARNESTINE CAMARGO on 10/27/172216 Benzonatate 100 Mg Capsule, 1-2 TAB PO TID Prescribed by: PETER ASHLEY on 07/15/172054 Buspirone HCl 5 Mg Tablet, 5 MG PO TID, (Reported) Glimepiride 4 Mg Tablet, 4 MG PO BID, (Reported) Lorazepam 0.5 Mg Tablet, 0.5 MG PO TID PRN for ANXIETY, (Reported) Meloxicam 15 Mg Tablet, 15 MG PO DAILY Prescribed by: PETER ASHLEY on 01/06/181901 Meloxicam 7.5 Mg Tablet, 7.5 MG PO DAILY Prescribed by: EARNESTINE CAMARGO on 01/27/18 110 Methocarbamol 500 Mg Tablet, 500 MG PO QID Prescribed by: PETER ASHLEY on 10/02/171858 Methocarbamol 500 Mg Tablet, 500 MG PO QID Prescribed by: PETER ASHLEY on 01/06/181901 Methylprednisolone 4 Mg Tab.ds.pk, 4 MG PO UD Prescribed by: PETER ASHLEY on 07/15/172054 Methylprednisolone 4 Mg Tab.ds.pk, 4 MG PO UD Prescribed by: PETER ASHLEY on 10/02/171858 Methylprednisolone 4 Mg Tab.ds.pk, 4 MG PO UD Prescribed by: EARNESTINE CAMARGO on 10/27/172216 Nitrofurantoin Monohyd/M-Cryst 100 Mg Capsule, 100 MG PO BID Prescribed by: PETER ASHLEY on 01/06/181901 Omeprazole 40 Mg Capsule.dr, 40 MG PO BID, (Reported) Ondansetron 4 Mg Tab.rapdis, 4 MG PO Q4H Prescribed by: PETER ASHLEY on 10/02/171858 Phenazopyridine HCl 200 Mg Tablet, 1 TAB PO TID Prescribed by: PETER ASHLEY on 01/06/181902 Pramipexole Di-HCl 1 Mg Tablet, 1 MG PO DAILY, (Reported) Promethazine HCl/Codeine 118 Ml Syrup, 5 ML PO Q4H Prescribed by: PETER ASHLEY on 07/15/172054 Propranolol HCl 60 Mg Tablet, 60 MG PO BID, (Reported) Sucralfate 1 Gm/10 Ml Oral.susp, 1 GM PO QID AC AND HS Prescribed by: EPTER ASHLEY on 07/15/172054 Patient Home Medication List Home Medication List Reviewed: Yes Review of Systems Review of Systems Constitutional: no symptoms reported Eyes: See HPI Ears, Nose, Mouth, Throat: no symptoms reported Respiratory: no symptoms reported Cardiovascular: no symptoms reported Gastrointestinal: see HPI; No abdominal pain; nausea; No vomiting Genitourinary: no symptoms reported Musculoskeletal: see HPI, back pain, neck pain, other (CHRONIC SHOULDER PAIN AND GENERALIZED PAOIN ) Skin: no symptoms reported Psychiatric/Neurological: See HPI, Headache, Pre-Existing Deficit Past Zdhcyyz-Sbmnuh-Maumkm Hx Patient Social History 2nd Hand Smoke Exposure: Yes Recent Foreign Travel: No Contact w/Someone Who Travel: No Recent Infectious Disease Expo: No Recent Hopitalizations: Yes (10/2017) Physical Abuse: No Sexual Abuse: No Mistreated: No Fear: No Immunizations Up To Date Tetanus Booster (TDap): Unknown PED Vaccines UTD: No Date of Pneumonia Vaccine: May 24, 2012 Date of Influenza Vaccine: Jan 25, 2016 Seasonal Allergies Seasonal Allergies: Yes Past Medical History Surgeries: Yes (BILATERAL CATARACTS AND YAG PROCEDURE; OVARIAN CYSTS X 4; CYST FROM BACK REMOVED; CORNELIUS FUNDOPLICATION; EGD'S / ESOPHAGEAL DILATIONS/ COLONOSCOPIES/ POLYPECTOMIES; ENT SURGERY ; KYPHOPLASTY) Abdominal, Appendectomy, Cardiac, Defibrillator, Eye Surgery, Gallbladder, Hysterectomy, Oophorectomy, Orthopedic, Pacemaker, Tonsillectomy Respiratory: Yes (COPD, wears oxygen AT HS AND PRN) Asthma, Pneumonia, Chronic Bronchitis, Sleep Apnea, COPD Currently Using CPAP: No Currently Using BIPAP: No Cardiac: Yes (PACEMAKER/DEFIBRILLATOR;HX OF CARDIAC ARREST DURING ENT SURGERY; PALPITATIONS/ PSVT) High Cholesterol, Irregular Heartbeat Neurological: Yes (PERIPHERAL NEUROPATHY--HANDS AND FEET) Headaches /Migraines, Neuropathy 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 Disorders: No Female 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 Disorders: Denies 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, 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 Sexually Transmitted Disease: No Genitourinary: Yes Kidney Infection, Bladder Infection, Kidney Stones, UTI-Chronic Gastrointestinal: Yes (S/P CORNELIUS FUNDOPLICATION; ESOPHAGEAL STRICTURES/ DILATIONS; DYSPHAGIA) Gastroesophageal Reflux, Diverticulosis, Hemorrhoids, Polyps, C-Diff, Hiatal Hernia, Ulcer, Gall Bladder Disease, Irritable Bowel Musculoskeletal: Yes (CHRONIC NECK PAIN WITH RADICULOPATHY--RIGH > LEFT; RESTLESS LEG SYNDROME; T12 COMPRESSION WITH KYPHOPLASTY ) Degenerate Disk Disease, Arthritis, Fibromyalgia, Chronic Back Pain, Fractures Endocrine: Yes Diabetes, Non-Insulin dep HEENT: Yes Cataract Loss of Vision: Denies Hearing Impairment: Denies Cancer: No Psychosocial: Yes Anxiety, Depression Integumentary: Yes (CANDIDAL INTERTRIGO) Pruritis Blood Disorders: No Adverse Reaction/Blood Tranf: No Family Medical History Alzheimer's disease 19 FATHER Cardiovascular disease 19 FATHER 19 MOTHER Completed stroke 19 MOTHER Hypertension 19 FATHER 19 MOTHER Myocardial infarction 19 FATHER 19 MOTHER No Family History of: Diabetes mellitus Physical Exam Vital Signs Vital Signs - First Documented 02/15/18 18:35 Temp 96.3 Pulse 60 Resp 16 B/P (MAP) 150/90 (110) Pulse Ox 96 Capillary Refill : Less Than 3 Seconds Height, Weight, BMI Height: 5'4.00" Weight: 180lbs. 0oz. 81.873565wt; 34.5 BMI Method:Estimated General Appearance: no apparent distress, obese, other (SOMEWAHT DRAMATICE, WEARING DARK GLASSES. ) HEENT: PERRL/EOMI Neck: tender lateral (RIGHT > LEFT, WITH MUSCLE SPASMS) Cardiovascular: normal peripheral pulses, regular rate, rhythm, no murmur Respiratory: normal breath sounds, no respiratory distress, no accessory muscle use Gastrointestinal: soft Back: no CVA tenderness Extremities: normal range of motion, non-tender, normal inspection, no pedal edema, no calf tenderness, normal capillary refill Psychiatric: alert, oriented x 3 Crainal Nerves: normal hearing, normal speech, PERRL Coordination/Gait: normal gait Motor/Sensory: no motor deficit, no sensory deficit (BUT REPORTED HX OF PERIPHERAL NEUROPATHY IN HANDS AND FEET), no pronator drift Skin: normal color, warm/dry Progress/Results/Core Measures Results/Orders My Orders Orders - PETER ASHLEY DO Orphenadrine Injection (Norflex Injectio (02/15/18 18:45) Ketorolac Injection (Toradol Injection) (02/15/18 18:45) Diphenhydramine Injection (Benadryl Inje (02/15/18 18:45) Medications Given in ED Current Medications Medications Dose Ordered Sig/Alannah Route Start Time Stop Time Status Last Admin Dose Admin Diphenhydramine HCl 50 mg ONCE ONCE IM 02/15/18 18:45 02/15/18 18:46 DC 02/15/18 18:56 50 MG Ketorolac Tromethamine 60 mg ONCE ONCE IM 02/15/18 18:45 02/15/18 18:46 DC 02/15/18 18:59 60 MG Orphenadrine Citrate 60 mg ONCE ONCE IM 02/15/18 18:45 02/15/18 18:46 DC 02/15/18 18:53 60 MG Vital Signs/I&O 02/15/18 18:35 Temp 96.3 Pulse 60 Resp 16 B/P (MAP) 150/90 (110) Pulse Ox 96 Blood Pressure Mean: 110 Progress Progress Note : Progress Note HEADACHE BEGINNING TO EASE AT DISMISSAL Departure Impression Primary Impression: Chronic headaches Additional Impression: Chronic neck and back pain Disposition: 01 HOME, SELF-CARE Condition: Stable Departure-Patient Inst. Referrals: NANNETTE REVELES DO (PCP/Family) Primary Care Physician Patient Instructions: Headache, Adult (DC), Chronic Neck Pain (DC) Add. Discharge Instructions: MOIST HEAT TO NECK AT 20 MINUTE INTERVALS CONTINUE YOUR CURRENT MEDICATIONS PRESCRIBED, INCLUDING TRAMADOL AND CELECOXIB FOR PAIN FOLLOW UP WITH DR. ROY AND DR REVELES NEXT WEEK FOR FURTHER CARE All discharge instructions reviewed with patient and/or family. Voiced understanding. Scripts Methocarbamol (Robaxin) 500 Mg Tablet 500 MG PO QID for Muscle Spasms, #20 TAB Prov: PETER ASHLEY DO 02/15/18 PETER ASHLEY DO Feb 15, 2018 18:55
[2018-02-15] MEDS ORDERED: METH500T PO (19:17)
[2018-02-15 19:26] VITALS: BP 150/90
== END 2018-02-15 19:27 | disposition home or self-care (01) ==
LOC: EDUNIT# 18:22 → ER 18:24
DX: R51 Headache (principal); M54.2 Cervicalgia; G89.29 Other chronic pain; J44.9 Chronic obstructive pulmonary disease, unspecified; G47.30 Sleep apnea, unspecified; I25.2 Old myocardial infarction; K21.9 Gastro-esophageal reflux disease without esophagitis; G25.81 Restless legs syndrome; E11.40 Type 2 diabetes mellitus with diabetic neuropathy, unspecified; F41.9 Anxiety disorder, unspecified; F32.9 Major depressive disorder, single episode, unspecified; E78.00 Pure hypercholesterolemia, unspecified; Z87.440 Personal history of urinary (tract) infections; Z87.19 Personal history of other diseases of the digestive system; Z86.69 Personal history of other diseases of the nervous system and sense organs; Z82.49 Family history of ischemic heart disease and other diseases of the circulatory system; Z98.890 Other specified postprocedural states; Z87.448 Personal history of other diseases of urinary system; Z86.010 Personal history of colon polyps; Z90.49 Acquired absence of other specified parts of digestive tract; Z90.710 Acquired absence of both cervix and uterus; Z90.89 Acquired absence of other organs; Z87.01 Personal history of pneumonia (recurrent); Z95.810 Presence of automatic (implantable) cardiac defibrillator; Z88.0 Allergy status to penicillin; Z88.2 Allergy status to sulfonamides; Z88.6 Allergy status to analgesic agent; Z79.4 Long term (current) use of insulin; Z79.52 Long term (current) use of systemic steroids; Z77.22 Contact with and (suspected) exposure to environmental tobacco smoke (acute) (chronic)
CPT/HCPCS: 99284

== ENCOUNTER 2018-02-27 19:40 | Emergency (ER) | payer MEDICARE ==
[~2018-02-27] VITALS: Ht 165.1 cm; Wt 97.1 kg
[2018-02-27] MEDS ORDERED: INSU100I10 (19:52)
--- NOTE | 2018-02-27 20:00 | ED Cough/URI ---
General Chief Complaint: Cough/Cold/Flu Symptoms Stated Complaint: SOB Source: patient Exam Limitations: no limitations History of Present Illness Date Seen by Provider: Feb 27, 2018 Time Seen by Provider: 19:47 Initial Comments The patient presents to ER by private conveyance with a chief complaint that for the past 3 days now she's been having nasal congestion and runny nose feeling of fullness in her ears and a MAXIMUM TEMPERATURE of 100.7. She says today her congestion has gotten down into her chest and she's been coughing with nonproductive cough. She does have a history of COPD and uses albuterol inhaler treatment which she has used 45 times today without any real effect on her cough for her congestion. She is not short of breath. She does not use oxygen at baseline. She has been on antibiotics about 6 weeks ago. She is concerned because at one point she had been hospitalized for respiratory illness and she was wanting to catch this before got bad again. Tried to get into her primary care doctor office today but was unable to due to transportation. She's had no nausea vomiting chills sweats constipation or diarrhea. Allergies and Home Medications Allergies Coded Allergies: milk (Verified Allergy, Intermediate, 10/16/17) hydromorphone (Verified Allergy, Mild, STRONG RASH, 06/08/16) Penicillins (Unverified Allergy, Unknown, Pt has received Cefepime & Ceftriaxone in the past w/o issue, 01/18/17) Sulfa (Sulfonamide Antibiotics) (Verified Allergy, Unknown, 06/08/16) aspirin (Verified Adverse Reaction, Mild, ASPIRIN SENSITIVE, 06/08/16) sumatriptan (Verified Adverse Reaction, Mild, PALPITATIONS, 06/08/16) Uncoded Allergies: EGG WHITES (Allergy, Unknown, 10/16/17) Home Medications Amitriptyline HCl 50 Mg Tablet, 50 MG PO DAILY, (Reported) Benzonatate 100 Mg Capsule, 1-2 TAB PO TID Prescribed by: PETER ASHLEY on 07/15/172054 Buspirone HCl 5 Mg Tablet, 5 MG PO TID, (Reported) Glimepiride 4 Mg Tablet, 4 MG PO BID, (Reported) Lorazepam 0.5 Mg Tablet, 0.5 MG PO TID PRN for ANXIETY, (Reported) Meloxicam 15 Mg Tablet, 15 MG PO DAILY Prescribed by: PETER ASHLEY on 01/06/181901 Meloxicam 7.5 Mg Tablet, 7.5 MG PO DAILY Prescribed by: EARNESTINE CAMARGO on 01/27/18 110 Methocarbamol 500 Mg Tablet, 500 MG PO QID Prescribed by: PETER ASHLEY on 10/02/171858 Methocarbamol 500 Mg Tablet, 500 MG PO QID Prescribed by: PETER ASHLEY on 01/06/181901 Methocarbamol 500 Mg Tablet, 500 MG PO QID Prescribed by: PETER ASHLEY on 02/15/181916 Omeprazole 40 Mg Capsule.dr, 40 MG PO BID, (Reported) Ondansetron 4 Mg Tab.rapdis, 4 MG PO Q4H Prescribed by: PETER ASHLEY on 10/02/171858 Pramipexole Di-HCl 1 Mg Tablet, 1 MG PO DAILY, (Reported) Promethazine HCl/Codeine 118 Ml Syrup, 5 ML PO Q4H Prescribed by: PETER ASHLEY on 07/15/172054 Propranolol HCl 60 Mg Tablet, 60 MG PO BID, (Reported) Sucralfate 1 Gm/10 Ml Oral.susp, 1 GM PO QID AC AND HS Prescribed by: PETER ASHLEY on 07/15/172054 Patient Home Medication List Home Medication List Reviewed: Yes Review of Systems Review of Systems Constitutional: No chills; fever, malaise EENTM: No ear discharge, No hearing loss, No ear pain, No eye pain Respiratory: cough; No phlegm, No short of breath, No wheezing Cardiovascular: No chest pain, No palpitations, No syncope Gastrointestinal: No abdominal pain, No constipation, No diarrhea, No nausea Genitourinary: No discharge, No dysuria Past Uyaqgzf-Juiwfq-Pymepn Hx Patient Social History Alcohol Use: Denies Use Recreational Drug Use: No Smoking Status: Never a Smoker 2nd Hand Smoke Exposure: Yes Recent Foreign Travel: No Contact w/Someone Who Travel: No Recent Hopitalizations: No Immunizations Up To Date Tetanus Booster (TDap): Unknown PED Vaccines UTD: No Date of Pneumonia Vaccine: May 24, 2012 Date of Influenza Vaccine: Jan 25, 2016 Seasonal Allergies Seasonal Allergies: Yes Past Medical History Surgeries: Yes Abdominal, Appendectomy, Cardiac, Defibrillator, Eye Surgery, Gallbladder, Hysterectomy, Oophorectomy, Orthopedic, Pacemaker, Tonsillectomy Respiratory: Yes Asthma, Pneumonia, Chronic Bronchitis, Sleep Apnea, COPD Currently Using CPAP: No Currently Using BIPAP: No Cardiac: Yes High Cholesterol, Irregular Heartbeat Neurological: Yes (PERIPHERAL NEUROPATHY--HANDS AND FEET) Headaches /Migraines, Neuropathy 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 Disorders: No Female 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 Disorders: Denies 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, 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 Sexually Transmitted Disease: No Genitourinary: Yes Kidney Infection, Bladder Infection, Kidney Stones, UTI-Chronic Gastrointestinal: Yes (S/P CORNELIUS FUNDOPLICATION; ESOPHAGEAL STRICTURES/ DILATIONS; DYSPHAGIA) Gastroesophageal Reflux, Diverticulosis, Hemorrhoids, Polyps, C-Diff, Hiatal Hernia, Ulcer, Gall Bladder Disease, Irritable Bowel Musculoskeletal: Yes Degenerate Disk Disease, Arthritis, Fibromyalgia, Chronic Back Pain, Fractures Endocrine: Yes Diabetes, Insulin dep, Diabetes, Non-Insulin dep HEENT: Yes Cataract Loss of Vision: Denies Hearing Impairment: Denies Cancer: No Psychosocial: Yes Anxiety, Depression Integumentary: Yes Pruritis Blood Disorders: No Adverse Reaction/Blood Tranf: No Family Medical History Alzheimer's disease 19 FATHER Cardiovascular disease 19 FATHER 19 MOTHER Completed stroke 19 MOTHER Hypertension 19 FATHER 19 MOTHER Myocardial infarction 19 FATHER 19 MOTHER No Family History of: Diabetes mellitus Physical Exam Vital Signs - First Documented Capillary Refill : Height: 5'4.00" Weight: 180lbs. 0oz. 81.956764mf; 34.5 BMI Method:Estimated General Appearance: WD/WN, no apparent distress Eyes: Bilateral Eye Normal Inspection, Bilateral Eye PERRL, Bilateral Eye EOMI HEENT: PERRL/EOMI, normal ENT inspection, pharynx normal, TM abnormal (R) ( Sclerosis with clear mucoid effusion and no bulging.); No TM abnormal (L) Neck: non-tender, full range of motion, supple, normal inspection Respiratory: chest non-tender, no respiratory distress, no accessory muscle use , rales (1-2 crackles heard in the right base), wheezing (Scant right basilar wheeze) Cardiovascular: normal peripheral pulses, regular rate, rhythm, no edema Gastrointestinal: normal bowel sounds, non tender, soft Neurologic/Psychiatric: alert, normal mood/affect, oriented x 3 Skin: normal color, warm/dry, other (Multiple seborrheic keratoses.) Progress/Results/Core Measures Suspected Sepsis SIRS Temperature: Pulse: Respiratory Rate: Blood Pressure / Mean: Results/Orders Micro Results Microbiology 02/27/18 Influenza Types A,B Antigen (YOLIE) - Final, Complete My Orders Orders - ISRAEL ODELL Influenza A And B Antigens (02/27/18 19:54) Chest Pa/Lat (2 View) (02/27/18 19:54) Vital Signs/I&O 02/27/18 02/27/18 19:43 19:43 Temp 97.7 Pulse 69 Resp 18 B/P (MAP) 153/89 (110) Pulse Ox 95 O2 Delivery Room Air Room Air Capillary Refill : Progress Note : Time: 19:59 Progress Note Vital signs are aseptic. She is afebrile with a heart rate in the 60s and oxygen sat 98-100% on room air. We will get a flu swab with her clinical history of fever. She seems to be having an upper respiratory tract infection with postnasal drip. Because of the faint crackle and wheeze heard on the right base we will obtain a 2 view chest x-ray. Diagnostic Imaging Diagonstic Imaging: Xray Plain Films/CT/US/NM/MRI: chest (2v) Comments No acute cardiopulmonary processes noted. Pacemaker noticed. Reviewed: Reviewed by Me Departure Impression Primary Impression: Upper respiratory infection Qualified Codes: J06.9 - Acute upper respiratory infection, unspecified Additional Impression: Cough Disposition: 01 HOME, SELF-CARE Condition: Stable Departure-Patient Inst. Decision time for Depature: 20:38 Referrals: NANNETTE REVELES DO (PCP/Family) Primary Care Physician Patient Instructions: Cough, Runny Nose, and the Common Cold (DC) Add. Discharge Instructions: The cough that is worse in the morning and is usually caused by postnasal drip due to your cold symptoms. Sleeping with a humidifier, vapor rubs and using over -the-counter cough and cold medicines will be helpful. If you have any fevers, chills or bodyaches you can use Tylenol or Motrin. If your symptoms do not improve in 7-10 days then you can follow-up with the primary care provider in the office. Continue to use your breathing treatments as prescribed for wheezing or shortness of breath. All discharge instructions reviewed with patient and/or family. Voiced understanding. ISRAEL ODELL Feb 27, 2018 20:00
[2018-02-27 20:42] VITALS: BP 153/89
--- NOTE | 2018-02-27 21:23 | Diagnostic Imaging Report ---
INDICATION: Cough and congestion COMPARISON: 12/12/2017 TECHNIQUE: Two radiographs of the chest dated 02/27/2018. FINDINGS: Pacer device is again identified with a battery pack overlying the left chest. The cardiac silhouette is mildly enlarged, though stable. No significant pulmonary vascular congestion. The lungs are clear. No pleural effusion. No pneumothorax. Prior vertebroplasty changes within the lower thoracic spine. No acute osseous abnormality. IMPRESSION: Stable examination demonstrating mild cardiomegaly without overt congestive heart failure or additional superimposed acute cardiopulmonary abnormality. Dictated by: Dictated on workstation # [id number]
== END 2018-02-27 20:41 | disposition home or self-care (01) ==
LOC: EDUNIT# 19:40 → ER 19:41
DX: J06.9 Acute upper respiratory infection, unspecified (principal); J44.9 Chronic obstructive pulmonary disease, unspecified; G47.30 Sleep apnea, unspecified; E78.00 Pure hypercholesterolemia, unspecified; G43.909 Migraine, unspecified, not intractable, without status migrainosus; K21.9 Gastro-esophageal reflux disease without esophagitis; E11.40 Type 2 diabetes mellitus with diabetic neuropathy, unspecified; F41.9 Anxiety disorder, unspecified; F32.9 Major depressive disorder, single episode, unspecified; Z86.010 Personal history of colon polyps; Z87.19 Personal history of other diseases of the digestive system; Z87.448 Personal history of other diseases of urinary system; Z82.49 Family history of ischemic heart disease and other diseases of the circulatory system; Z87.440 Personal history of urinary (tract) infections; Z87.09 Personal history of other diseases of the respiratory system; Z98.51 Tubal ligation status; Z88.0 Allergy status to penicillin; Z88.2 Allergy status to sulfonamides; Z88.6 Allergy status to analgesic agent; Z88.8 Allergy status to other drugs, medicaments and biological substances; Z79.4 Long term (current) use of insulin; Z77.22 Contact with and (suspected) exposure to environmental tobacco smoke (acute) (chronic); Z90.49 Acquired absence of other specified parts of digestive tract; Z95.810 Presence of automatic (implantable) cardiac defibrillator; Z90.710 Acquired absence of both cervix and uterus; Z95.0 Presence of cardiac pacemaker; Z90.89 Acquired absence of other organs; Z87.01 Personal history of pneumonia (recurrent)
CPT/HCPCS: 71046; 87804

== ENCOUNTER 2018-03-12 14:25 | Emergency (ER) | payer MEDICARE ==
[~2018-03-12] VITALS: Ht 165.1 cm; Wt 97.1 kg
[~2018-03-12 14:25] MED LIST changes: +INSU100I10
--- NOTE | 2018-03-12 14:41 | NUR ---
TO ROOM AMB NO CHANGE FROM TRIAGE.
[2018-03-12] MEDS ORDERED: KETOROLAC 60 MG/2 ML VIAL IM STA (15:16)
--- NOTE | 2018-03-12 15:24 | ED Headache ---
General Chief Complaint: Head/Cervical Problems Stated Complaint: MIGRAINE Nursing Triage Note: COMPLAINS OF MIGRAINE STARTING YESTERDAY. HAS NOT TAKEN ANYTHING FOR IT. Nursing Sepsis Screen: No Definite Risk History of Present Illness Date Seen by Provider: Mar 12, 2018 Time Seen by Provider: 15:10 Initial Comments 72-year-old female presents for her migraine. She gets these recurrently approximately 2-3 times a week. She has a known cervical disc disorder and is planning surgery in the near future. She reports a mild headache yesterday but had an aura this morning and then migraine symptoms. She is having photophobia and mild nausea but no vomiting or diarrhea. Patient is wearing sunglasses. Timing/Duration: 24 hours Location: frontal Prior Headaches/Recent Trauma: frequent headaches Allergies and Home Medications Allergies Coded Allergies: milk (Verified Allergy, Intermediate, 10/16/17) hydromorphone (Verified Allergy, Mild, STRONG RASH, 06/08/16) Penicillins (Unverified Allergy, Unknown, Pt has received Cefepime & Ceftriaxone in the past w/o issue, 01/18/17) Sulfa (Sulfonamide Antibiotics) (Verified Allergy, Unknown, 06/08/16) aspirin (Verified Adverse Reaction, Mild, ASPIRIN SENSITIVE, 06/08/16) sumatriptan (Verified Adverse Reaction, Mild, PALPITATIONS, 06/08/16) Uncoded Allergies: EGG WHITES (Allergy, Unknown, 10/16/17) Home Medications Amitriptyline HCl 50 Mg Tablet, 50 MG PO DAILY, (Reported) Benzonatate 100 Mg Capsule, 1-2 TAB PO TID Prescribed by: PETER ASHLEY on 07/15/172054 Buspirone HCl 5 Mg Tablet, 5 MG PO TID, (Reported) Glimepiride 4 Mg Tablet, 4 MG PO BID, (Reported) Lorazepam 0.5 Mg Tablet, 0.5 MG PO TID PRN for ANXIETY, (Reported) Meloxicam 15 Mg Tablet, 15 MG PO DAILY Prescribed by: PETER ASHLEY on 01/06/181901 Meloxicam 7.5 Mg Tablet, 7.5 MG PO DAILY Prescribed by: EARNESTINE CAMARGO on 01/27/18 1105 Methocarbamol 500 Mg Tablet, 500 MG PO QID Prescribed by: PETER ASHLEY on 10/02/17 185 Methocarbamol 500 Mg Tablet, 500 MG PO QID Prescribed by: PETER ASHLEY on 01/06/181901 Methocarbamol 500 Mg Tablet, 500 MG PO QID Prescribed by: PETER ASHLEY on 02/15/181916 Omeprazole 40 Mg Capsule.dr, 40 MG PO BID, (Reported) Ondansetron 4 Mg Tab.rapdis, 4 MG PO Q4H Prescribed by: PETER ASHLEY on 10/02/17 185 Pramipexole Di-HCl 1 Mg Tablet, 1 MG PO DAILY, (Reported) Promethazine HCl/Codeine 118 Ml Syrup, 5 ML PO Q4H Prescribed by: PETER ASHLEY on 07/15/172054 Propranolol HCl 60 Mg Tablet, 60 MG PO BID, (Reported) Sucralfate 1 Gm/10 Ml Oral.susp, 1 GM PO QID AC AND HS Prescribed by: PETER ASHLEY on 07/15/172054 Patient Home Medication List Home Medication List Reviewed: Yes Review of Systems Review of Systems Constitutional: no symptoms reported, see HPI Psychiatric/Neurological: See HPI, Headache All Other Systems Reviewed Negative Unless Noted: Yes Past Wqxnjpz-Fgjjuv-Vettdj Hx Past Med/Social Hx: Reviewed Nursing Past Med/Soc Hx Patient Social History Alcohol Use: Denies Use Recreational Drug Use: No Smoking Status: Never a Smoker 2nd Hand Smoke Exposure: Yes Recent Foreign Travel: No Contact w/Someone Who Travel: No Recent Infectious Disease Expo: No Recent Hopitalizations: No Immunizations Up To Date Tetanus Booster (TDap): Unknown PED Vaccines UTD: No Date of Pneumonia Vaccine: May 24, 2012 Date of Influenza Vaccine: Jan 25, 2016 Seasonal Allergies Seasonal Allergies: Yes Past Medical History Surgeries: Yes Abdominal, Appendectomy, Cardiac, Defibrillator, Eye Surgery, Gallbladder, Hysterectomy, Oophorectomy, Orthopedic, Pacemaker, Tonsillectomy Respiratory: Yes Asthma, Pneumonia, Chronic Bronchitis, Sleep Apnea, COPD Currently Using CPAP: No Currently Using BIPAP: No Cardiac: Yes High Cholesterol, Irregular Heartbeat Neurological: Yes (PERIPHERAL NEUROPATHY--HANDS AND FEET) Headaches /Migraines, Neuropathy 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 Disorders: No Female 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 Disorders: Denies CORE SHAPER History: Hysterectomy, Menopausal Sexually Transmitted Disease: No Genitourinary: Yes Kidney Infection, Bladder Infection, Kidney Stones, UTI-Chronic Gastrointestinal: Yes (S/P CORNELIUS FUNDOPLICATION; ESOPHAGEAL STRICTURES/ DILATIONS; DYSPHAGIA) Gastroesophageal Reflux, Diverticulosis, Hemorrhoids, Polyps, C-Diff, Hiatal Hernia, Ulcer, Gall Bladder Disease, Irritable Bowel Musculoskeletal: Yes Degenerate Disk Disease, Arthritis, Fibromyalgia, Chronic Back Pain, Fractures Endocrine: Yes Diabetes, Insulin dep, Diabetes, Non-Insulin dep HEENT: Yes Cataract Loss of Vision: Denies Hearing Impairment: Denies Cancer: No Psychosocial: Yes Anxiety, Depression Integumentary: Yes Pruritis Blood Disorders: No Adverse Reaction/Blood Tranf: No Family Medical History Alzheimer's disease 19 FATHER Cardiovascular disease 19 FATHER 19 MOTHER Completed stroke 19 MOTHER Hypertension 19 FATHER 19 MOTHER Myocardial infarction 19 FATHER 19 MOTHER No Family History of: Diabetes mellitus Physical Exam Vital Signs Vital Signs - First Documented 03/12/18 14:35 Temp 98.1 Pulse 82 Resp 16 B/P (MAP) 144/68 (93) Pulse Ox 96 O2 Delivery Room Air Capillary Refill : Less Than 3 Seconds Height, Weight, BMI Height: 5'5.00" Weight: 214lbs. 0oz. 97.200764hu; 34.5 BMI Method:Stated General Appearance: WD/WN, no apparent distress HEENT: PERRL/EOMI, normal ENT inspection, TMs normal, pharynx normal, photophobia Neck: limited range of motion (secondary to pain); No tender lateral; tender midline Cardiovascular: normal peripheral pulses, regular rate, rhythm, no edema, no murmur Respiratory: chest non-tender, lungs clear, normal breath sounds Gastrointestinal: normal bowel sounds, non tender, soft Crainal Nerves: normal hearing, normal speech, PERRL Motor/Sensory: no motor deficit, no sensory deficit, no pronator drift Skin: normal color, warm/dry Progress/Results/Core Measures Results/Orders My Orders Orders - KELLY WASHBURN Ketorolac Injection (Toradol Injection) (03/12/18 15:16) Diphenhydramine Injection (Benadryl Inje (03/12/18 15:30) Prochlorperazine Injection (Compazine In (03/12/18 15:30) Medications Given in ED Current Medications Medications Dose Ordered Sig/Alannah Route Start Time Stop Time Status Last Admin Dose Admin Diphenhydramine HCl 25 mg ONCE ONCE IM 03/12/18 15:30 03/12/18 15:31 DC 1/9/19 15:25 25 MG Prochlorperazine Edisylate 10 mg ONCE ONCE IM 03/12/18 15:30 03/12/18 15:31 DC 03/12/18 15:25 10 MG Vital Signs/I&O 03/12/18 03/12/18 14:35 16:06 Temp 98.1 Pulse 82 85 Resp 16 18 B/P (MAP) 144/68 (93) 145/105 (118) Pulse Ox 96 98 O2 Delivery Room Air Room Air Blood Pressure Mean: 93 Progress Progress Note : Time: 15:10 Progress Note Patient seen and evaluated, she has had good results the past with Toradol, Compazine and Benadryl. We will use these medications again. 1600 patient reports symptoms are improving. Discharge instructions and return precautions reviewed with her. Departure Impression Primary Impression: Migraine Qualified Codes: G43.119 - Migraine with aura, intractable, without status migrainosus Disposition: 01 HOME, SELF-CARE Condition: Improved Departure-Patient Inst. Decision time for Depature: 15:55 Referrals: NANNETTE REID DO (PCP/Family) Primary Care Physician Patient Instructions: Migraine Headache (DC) Add. Discharge Instructions: Increase water intake, one bottle every 2 hours while awake. Consider evaluation at the pain clinic at [address] You may try [employer] balm ointment or patches for neck pain and headaches. Follow-up with Dr. Reid as needed. Return to emergency department for new, urgent health care needs. All discharge instructions reviewed with patient and/or family. Voiced understanding. Copy Copies To 1: NANNETTE REID AMY ARNP Mar 12, 2018 15:24
[2018-03-12] MEDS ORDERED: PROCHLORPERAZINE 10 MG/2ML INJ (COMPAZINE) IM ONE (15:30)
[2018-03-12] MEDS ORDERED: diphenhydrAMINE 50 MG/ML INJ (BENADRYL) IM ONE (15:30)
[2018-03-12 16:06] VITALS: BP 145/105
== END 2018-03-12 16:06 | disposition home or self-care (01) ==
LOC: EDUNIT# 14:25 → ER 14:26
DX: G43.909 Migraine, unspecified, not intractable, without status migrainosus (principal); G47.30 Sleep apnea, unspecified; J44.9 Chronic obstructive pulmonary disease, unspecified; E78.00 Pure hypercholesterolemia, unspecified; K21.9 Gastro-esophageal reflux disease without esophagitis; E11.40 Type 2 diabetes mellitus with diabetic neuropathy, unspecified; F41.9 Anxiety disorder, unspecified; F32.9 Major depressive disorder, single episode, unspecified; Z86.010 Personal history of colon polyps; Z87.19 Personal history of other diseases of the digestive system; Z82.49 Family history of ischemic heart disease and other diseases of the circulatory system; Z87.448 Personal history of other diseases of urinary system; Z87.440 Personal history of urinary (tract) infections; Z88.5 Allergy status to narcotic agent; Z88.0 Allergy status to penicillin; Z88.2 Allergy status to sulfonamides; Z88.6 Allergy status to analgesic agent; Z88.8 Allergy status to other drugs, medicaments and biological substances; Z79.4 Long term (current) use of insulin; Z77.22 Contact with and (suspected) exposure to environmental tobacco smoke (acute) (chronic); Z90.710 Acquired absence of both cervix and uterus; Z95.810 Presence of automatic (implantable) cardiac defibrillator; Z90.89 Acquired absence of other organs; Z90.49 Acquired absence of other specified parts of digestive tract; Z87.01 Personal history of pneumonia (recurrent)
CPT/HCPCS: 96372; 99284

== ENCOUNTER 2018-03-23 10:11 | Emergency (ER) | payer MEDICARE | END 2018-03-23 12:15 | disposition home or self-care (01) | LOC: ER 10:11 ==

== ENCOUNTER 2018-04-06 07:09 | Emergency (ER) | payer MEDICARE ==
[~2018-04-06] VITALS: Ht 162.6 cm; Wt 97.5 kg
--- OUTSIDE RECORDS SUMMARY | 2018-04-06 07:15 | XMS REPORT | Clinical Summary ---
Author Author [facility] Organization [facility] Address Unknown Phone Unavailable Care Team Providers Care Band Singer Name Role Phone Belia Reid MD PCP Source Comments Some departments are not documenting in the electronic medical record. If you do not see the information that you expected, contact Release of Information in the Health Information Management department at [phone] for further assistance in locating additional records.[facility] Allergies Comments Active Allergy Reactions Severity [...] tablet mouth daily with dinner. Active Blood-Glucose Calibrat Use as 1 each 3 Control cmpkIndications: directed 8 Uncontrolled type 2 diabetes mellitus with hyperglycemia (HCC) Active ACCU-CHEK COMPACT TEST Use 1 each as 100 strip 3 strpIndications: type 2 directed 8 diabetes mellitus daily. Active ACCU-CHEK SMARTVIEW TEST Use one strip 200 strip 2 STRIP test strip as directed 8 twice daily. Active blood-glucose meter kit Use 1 strip 1 kit 0 as directed 8 twice daily. E11.[address] Carrillo Active Blood Glucose Control Use to test 1 each 1 High&Low soln accuracy of 8 glucometer Active Alcohol Swabs (BD SINGLE Use as 200 each 2 USE SWABS REGULAR) directed with 8 padmIndications: blood sugar Uncontrolled type 2 checks diabetes mellitus with hyperglycemia (HCC) Active insulin glargine (LANTUS Inject thirty 15 mL 6 SOLOSTAR, BASAGLAR) 100 eight Units 8 unit/mL (3 mL) injection under the PEN skin daily. ICD-10:E11.65 Active lancets MISC Use one each 200 each 2 as directed 8 twice daily. Active insulin pen needles Use one each 100 each 3 (disposable) (BD UF TETO as directed 9 PEN NEEDLES) 32 gauge x daily. Use " pen with insulin needleIndications: type 2 injections. diabetes mellitus Active metoprolol XL (TOPROL XL) Take 100 mg 0 100 mg extended release by mouth tablet daily. Active gabapentin (NEURONTIN) Take one 360 capsule 3 100 mg capsule by 9 capsuleIndications: mouth every 8 Diabetic polyneuropathy hours. Take 1 associated with type 2 cap in diabetes mellitus (HCC) evening w/ 300 mg cap. In 1 week, increase dose to 2 caps with evening 300 mg dose. Active gabapentin enacarbil 300 Take one 90 tablet 3 mg TbER tablet by 9 mouth at bedtime daily. 03/11/2018 Discontinued insulin pen needles Use one each 100 each 3 (disposable) (B-D TETO; as directed 8 ULTICARE MICRO) 32 gauge daily. Use x 5/32" pen needle with insulin injections. 03/18/2018 Discontinued insulin pen needles Use one each 100 each 3 (disposable) (B-D TETO; as directed 9 ULTICARE MICRO) 32 gauge daily. Use x 5/32" pen needle with insulin injections. 03/26/2018 Discontinued gabapentin enacarbil 300 Take by 0 mg TbER mouth. 03/25/2018 Discontinued gabapentin (NEURONTIN) Take one 180 capsule 3 100 mg capsule by 9 capsuleIndications: mouth every 8 Diabetic polyneuropathy hours. Take 1 associated with type 2 cap in diabetes mellitus (HCC) evening w 300 mg cap. In 1 w, iincrease dose to 2 caps with evening 300 mg dose. Active Problems Problem Noted Date Type 2 [...] recently Kidney stones 08/24/2016 Overview: -- 10/15/16: Rn X Ray evaluation non-obstructing stone. CT shows a 4.6 [...] Encounters Care Team Description Date Type Specialty Nathan Crenshaw MD Medication Question (Neurontin) 03/27/2018 Telephone Endocrinology, Metabolism & Genetics Nathan Crenshaw MD 03/26/2018 Refill Endocrinology, Metabolism & Genetics Nathan Crenshaw MD Paperwork (Mobile Med Care/Respiratory/Sleep Therapy Orders) 03/26/2018 Telephone Endocrinology Nathan Crenshaw MD Diabetic polyneuropathy associated with type 2 diabetes mellitus (HCC) 03/25/2018 Refill Endocrinology, Metabolism & Genetics Nathan Crenshaw MD High Blood Sugar 03/21/2018 Telephone Endocrinology, Metabolism & Genetics Nathan Crenshaw MD Uncontrolled type 2 diabetes mellitus with hyperglycemia (HCC ) (Primary Dx); Dyslipidemia; Diabetic polyneuropathy associated with type 2 diabetes mellitus (HCC) 03/20/2018 Office Visit Diabetes Services Calvin Tripp APRN Type 2 diabetes mellitus with hyperglycemia, without long -term current use of insulin (HCC) (Primary Dx) 03/18/2018 Refill Endocrinology, Metabolism & Genetics Calvin Tripp APRN 03/11/2018 Refill Endocrinology, Metabolism & Genetics Calvin Tripp APRN Other (Lantus Tier Exception-DENIED) 03/07/2018 Telephone Endocrinology, Metabolism & Calvin Flores APRN 02/27/2018 Refill Endocrinology, Metabolism & Genetics Calvin Tripp APRN Medication Problem (Lantus refills/[employer]) 02/21/2018 Telephone Endocrinology Calvin Tripp APRN Medication Refill (testing supplies) 02/19/2018 Telephone Endocrinology, Metabolism & Genetics Calvin Tripp APRN Uncontrolled type 2 diabetes mellitus with hyperglycemia (HCC) (Primary Dx) 02/12/2018 Refill Endocrinology Metabolism & Calvin Flores APRN Uncontrolled type 2 diabetes mellitus with hyperglycemia (HCC) (Primary Dx) 02/12/2018 Refill Endocrinology, Metabolism & Genetics from Last 3 Months Family History Medical History Relation Name Comments Heart Disease Father Stroke Father Heart Disease Mother Relation Name Status Comments Father Mother Social History Date Tobacco Use Types Packs/Day [...] Vital Signs Time Taken Vital Sign Reading 03/20/2018 12:54 PM WATER RESOURCES BUSINESS SEGMENT LEADER Blood Pressure 145/71 03/20/2018 12:54 PM WATER RESOURCES BUSINESS SEGMENT LEADER Pulse 64 - Temperature - - Respiratory Rate - - Oxygen Saturation - - Inhaled Oxygen - Concentration 03/20/2018 12:54 PM WATER RESOURCES BUSINESS SEGMENT LEADER Weight 97.9 kg (215 lb 14.4 oz) 03/20/2018 12:54 PM WATER RESOURCES BUSINESS SEGMENT LEADER Height 164.6 cm (5' 4.8") 03/20/2018 12:54 PM WATER RESOURCES BUSINESS SEGMENT LEADER Body Mass Index 36.15 Plan of Treatment Health Maintenance Due Date Last Done Comments HEPATITIS C SCREENING 1946 PHYSICAL (COMPREHENSIVE) 1953 EXAM DILATED EYE EXAM 1964 DTAP/TDAP VACCINES (1 - 1964 Tdap) MICROALBUMIN 1964 BREAST CANCER SCREENING 1986 COLORECTAL CANCER 1996 SCREENING SHINGLES RECOMBINANT 1996 VACCINE (1 of 2) OSTEOPOROSIS 06/16/2011 SCREENING/MONITORING PNEUMONIA (PCV13/PPSV23) 06/16/2011 VACCINES (1 of 2 - PCV13) HBA1C 05/13/2018 11/13/2017, 07/12/2017, 04/01/2017, Additional history exists FOOT EXAM 03/20/2019 03/20/2018 INFLUENZA VACCINE Completed 11/14/2017 Goals Goal Patient Associated Recent Progress Patient-Stat Author Goal Type Problems ed? HEMOGLOBIN A1C < 7.5 Result 9.9 (04/01/2017 No Josee, Component 10:37 AM WATER RESOURCES BUSINESS SEGMENT LEADER) NAHEED Simpson Results Not on filefrom Last 3 Months Insurance Payer Benefit Subscriber ID Type Phone Address Plan / Group [employer] MEDICARE HUMANA xxxxxxxxx Medicare CHOICE PPO Advance Directives Patient has advance care planning documents on file. For more information, please contact: [facility] [address] [place] [address]
--- OUTSIDE RECORDS SUMMARY | 2018-04-06 07:15 | XMS REPORT | Encounter Summary ---
Author Author [facility] Address Unknown Phone Unavailable Care Team Providers Care Actuarial Director Name Role Phone Belia Reid MD PCP Reason for Visit * Reason Comments Medication Refill Encounter Details Care Team Description Date Type Department Nathan Crenshaw MD [address] [facility] [address] [place] [address] Diabetic polyneuropathy associated with type 2 diabetes mellitus (HCC) 03/25/2018 Refill [facility] Physicians - Internal Medicine [facility] [address] [place] [address] Social History Date Tobacco Use Types Packs/Day [...] 9.9 (04/01/2017 No Josee, Component 10:37 AM QUARRYMAN) NAHEED Simpson as of this encounter Visit Diagnoses Diagnosis Diabetic polyneuropathy associated with type 2 diabetes mellitus (HCC) in this encounter
--- OUTSIDE RECORDS SUMMARY | 2018-04-06 07:15 | XMS REPORT | Encounter Summary ---
Author Author [facility] Organization [facility] Address Unknown Phone Unavailable Care Team Providers Care Acls Nurse Name Role Phone Belia Reid MD PCP Reason for Visit * Reason Comments Medication Refill Encounter Details Care Team Description Date Type Department Nathan Crenshaw MD [address] [facility] [address] [place] [address] 03/26/2018 Refill [facility] Physicians - Internal Medicine [facility] [address] [place] [address] Social History Date Tobacco Use [...] 9.9 (04/01/2017 No Josee, Component 10:37 AM FREIGHT BRAKE OPERATOR) NAHEED Simpson as of this encounter Visit Diagnoses Not on filein this encounter
--- OUTSIDE RECORDS SUMMARY | 2018-04-06 07:15 | XMS REPORT | Encounter Summary ---
Author Author [facility] Organization [facility] Address Unknown Phone Unavailable Care Team Providers Care Claims Auditor Name Role Phone Belia Reid MD PCP Reason for Visit * Reason Comments Paperwork Mobile Med Care/Respiratory/Sleep Therapy Orders Encounter Details Care Team Description Date Type Department Nathan Crenshaw MD [address] [facility] [address] [place] [address] Paperwork (Mobile Med Care/Respiratory/Sleep Therapy Orders) 03/26/2018 Telephone [facility] Physicians - Internal Medicine [facility] [address] [place] [address] Social History Date Tobacco Use Types Packs/Day [...] encounter Miscellaneous Notes * Telephone Encounter - Laura Verdin RN - 03/26/2018 8:25 AM HELPDESK TECHNICIAN Orders for Overnight Oximetry completed, signed and faxed to [facility]. Faxed with demographics, insurance information Fax confirmation 03/25/18 @ 1300 PM Form to PRR to scan to chart Closing encounter DESK TECHNICIAN in this encounter Plan of Treatment Not on fileas of this encounter Goals Goal Patient Associated Recent Progress Patient-Stat Author Goal Type Problems ed? HEMOGLOBIN A1C < 7.5 Result 9.9 (04/01/2017 No Josee, Component 10:37 AM HELPDESK TECHNICIAN) Calvin, MEDICAID BILLING CLERK as of this encounter Visit Diagnoses Not on filein this encounter
--- OUTSIDE RECORDS SUMMARY | 2018-04-06 07:15 | XMS REPORT | Encounter Summary ---
Author Author [facility] Organization [facility] Address Unknown Phone Unavailable Care Team Providers Care Knotter Name Role Phone Belia Reid MD PCP Reason for Visit * Reason Comments Medication Question Neurontin Encounter Details Care Team Description Date Type Department Nathan Crenshaw MD [address] [facility] [address] [place] [address] [phone] Medication Question (Neurontin) 03/27/2018 Telephone [facility] Physicians - Internal Medicine [facility] Level [address] [place] [address] Social History Date Tobacco Use Types Packs/Day [...] encounter Miscellaneous Notes * Telephone Encounter - Babita Conteh LPN - 04/01/2018 12:28 PM MD PHYSICIAN DERMATOLOGIST Called [employer] and advised Patient has no allergy to Gabapentin She has been on it for several months without issue They removed allergy from record and will ship it today, Patient notified PHYSICIAN DERMATOLOGIST * Telephone Encounter - Nathan Crenshaw MD - 03/31/2018 8:49 AM MD PHYSICIAN DERMATOLOGIST I reviewed my note, which says that she was already on gabapentin, and that I just adjusted the dose. Could you confirm this with her? If she was already taking the medication they should go ahead and fill the script for the same medication, generic gabapentin. PHYSICIAN DERMATOLOGIST * Telephone Encounter - Hanna Kelly RN - 03/27/2018 11:01 AM MD PHYSICIAN DERMATOLOGIST Received fax from [employer] Patient reports Neurotin Cap 100 mg allergy and there is potential for cross sensitivity . They are wanting confirmation it is okay to fill this med. PHYSICIAN DERMATOLOGIST in this encounter Plan of Treatment Not on fileas of this encounter Goals Goal Patient Associated Recent Progress Patient-Stat Author Goal Type Problems ed? HEMOGLOBIN A1C < 7.5 Result 9.9 (04/01/2017 No Josee, Component 10:37 AM MD PHYSICIAN DERMATOLOGIST) NAHEED Simpson as of this encounter Visit Diagnoses Not on filein this encounter
--- OUTSIDE RECORDS SUMMARY | 2018-04-06 07:15 | XMS REPORT | Encounter Summary ---
Author Author [facility] Organization [facility] Address Unknown Phone Unavailable Care Team Providers Care Field Organizer Name Role Phone Belia Reid MD PCP Reason for Visit * Reason Comments High Blood Sugar Encounter Details Care Team Description Date Type Department Nathan Crenshaw MD [address] [facility] [address] [place] [address] [phone] High Blood Sugar 03/21/2018 Telephone [facility] Physicians - Internal Medicine [facility] Level [address] [place] [address] Social History Date Tobacco Use Types Packs/Day [...] encounter Miscellaneous Notes * Telephone Encounter - Geni June, SHRAVAN - 03/21/2018 4:23 PM PINION STAKER Patient left a VM stating she started using her new meter and her glucose is 457. She checked with her old meter and it was 306. She is concerned about this. Spoke with the patient. States at her visit with Dr. Crenshaw yesterday, 03/20, she was instructed to increase her metformin to BID and leave her Lantus at 38 units. She increased her metformin starting last night. Explained it is difficult to know which meter is more accurate without comparing it to a professional meter that's been calibrated. She will check with her pcp next week and see if she can bring her meters in to compare to their glucose meter. She will stay hydrated and if she starts to vomit or feel bad, she will go to ER if her glucose does not come down or continues to rise. She will call next week with an update. ON STAKER in this encounter Plan of Treatment Not on fileas of this encounter Goals Goal Patient Associated Recent Progress Patient-Stat Author Goal Type Problems ed? HEMOGLOBIN A1C < 7.5 Result 9.9 (04/01/2017 No Josee, Component 10:37 AM PINION STAKER) NAHEED Simpson as of this encounter Visit Diagnoses Not on filein this encounter
--- OUTSIDE RECORDS SUMMARY | 2018-04-06 07:16 | XMS REPORT | Encounter Summary ---
Author Author [facility] Organization [facility] Address Unknown Phone Unavailable Care Team Providers Care College Recruiter Name Role Phone Belia Reid MD PCP Reason for Visit * Reason Comments Other Lantus Tier Exception-DENIED Encounter Details Care Team Description Date Type Department Calvin Tripp APRN [address] [place] [address] [phone] Other (Lantus Tier Exception-DENIED) 03/07/2018 Telephone [facility] Physicians - Internal Medicine [facility] Level 5A [address] [place] [address] Social History Date Tobacco Use Types Packs/Day [...] encounter Miscellaneous Notes * Telephone Encounter - Safia Velazquez RN - 03/07/2018 3:13 PM WILDLIFE CONSERVATION OFFICER Called pt to update her Pt verbalized understanding LIFE CONSERVATION OFFICER * Telephone Encounter - Calvin Tripp APRN - 03/07/2018 3:07 PM WILDLIFE CONSERVATION OFFICER I would suggest that she use NPH generic vials from [facility] for now, 15 units QAM and 10 units at dinner. She can buy these for $25/bottle without a prescription LIFE CONSERVATION OFFICER * Telephone Encounter - Safia Velazquez RN - 03/07/2018 2:58 PM WILDLIFE CONSERVATION OFFICER Received fax from [facility] States Tier Exeption for lantus has been denied This is d/t the fact that there are no lower-cost alternatives Lantus is the lowest priced medication Routing to Tip Tripp APRN to make her aware, and for suggestions? LIFE CONSERVATION OFFICER * Telephone Encounter - Safia Velazquez RN - 03/07/2018 9:18 AM WILDLIFE CONSERVATION OFFICER Pt called and [facility] States we sent a script in a few weeks ago to mail delivery [employer] for Lantus, but she hasn't received it yet When she called [facility] to check status, they told her she has a copay on it States her Lantus insulin is too expensive for her to afford Copay is going to be $130 for 3 month supply at [facility] It would be $90 for one month supply at [facility] She can get one pen at [facility] for $47 She only makes $700/month Pt states [facility] says all the insulin is expensive right now [facility] says this office could try to do Tier Exception [facility]acy # [phone] Pt has been off the insulin for a while She states her blood sugar this morning was 342 RN called [facility] to discuss Tier Exception Tier exception number [phone] Alternatives to Lantus: Oliverio Tristan Tresiba Lantus is the cheapest option out of those [facility] explained "In order to get tier exception, provider must explain why the lower-cost alternative medication would not be effective" RN explained that there are no other lower-cost alternatives, according to the information they provided Clinical questions were answered They are sending note to clinical team for review, will have response within 24- 48 hrs Reference # [id number] LIFE CONSERVATION OFFICER in this encounter Plan of Treatment Not on fileas of this encounter Goals Goal Patient Associated Recent Progress Patient-Stat Author Goal Type Problems ed? HEMOGLOBIN A1C < 7.5 Result 9.9 (04/01/2017 No Josee, Component 10:37 AM WILDLIFE CONSERVATION OFFICER) NAHEED Simpson as of this encounter Visit Diagnoses Not on filein this encounter
--- OUTSIDE RECORDS SUMMARY | 2018-04-06 07:16 | XMS REPORT | Encounter Summary ---
Author Author [facility] Organization [facility] Address Unknown Phone Unavailable Care Team Providers Care Director Medical Name Role Phone Belia Reid MD PCP Reason for Visit * Reason Comments Medication Refill Encounter Details Care Team Description Date Type Department Calvin Tirpp APRN [address] [place] [address] [phone] Uncontrolled type 2 diabetes mellitus with hyperglycemia ( HCC) (Primary Dx) 02/12/2018 Refill [facility] Physicians - Internal Medicine [facility] Level 5A [address] [place] [address] Social History Date Tobacco Use Types Packs/Day [...] HEMOGLOBIN A1C < 7.5 Result 9.9 (04/01/2017 Leonela Tripp, Edilberto 10:37 AM PRODUCT DEVELOPMENT ACTUARY) NAHEED Simpson as of this encounter Visit Diagnoses Diagnosis Uncontrolled type 2 diabetes mellitus with hyperglycemia (HCC) - Primary in this encounter
--- OUTSIDE RECORDS SUMMARY | 2018-04-06 07:16 | XMS REPORT | Encounter Summary ---
Author Author [facility] Organization [facility] Address Unknown Phone Unavailable Care Team Providers Care Vice President Business & Corporate Development Name Role Phone Belia Reid MD PCP Reason for Visit * Reason Comments Medication Refill Encounter Details Care Team Description Date Type Department Calvin Tripp APRN [address] [place] [address] [phone] Uncontrolled type 2 diabetes mellitus with hyperglycemia ( HCC) (Primary Dx) 02/12/2018 Refill [facility] Physicians - Internal Medicine [facility] Level 5A [address] [place] [address] Social History Date Tobacco Use Types Packs/Day [...] 9.9 (04/01/2017 Leonela Tripp, Edilberto 10:37 AM PAPER CONE MACHINE TENDER) NAHEED Simpson as of this encounter Visit Diagnoses Diagnosis Uncontrolled type 2 diabetes mellitus with hyperglycemia (HCC) - Primary in this encounter
--- OUTSIDE RECORDS SUMMARY | 2018-04-06 07:16 | XMS REPORT | Encounter Summary ---
Author Author [facility] Organization [facility] Address Unknown Phone Unavailable Care Team Providers Care Crew Leader Name Role Phone Belia Reid MD PCP Reason for Visit * Reason Comments Medication Refill Encounter Details Care Team Description Date Type Department Calvin Tripp APRN [address] [place] [address] 03/11/2018 Refill [facility] Physicians - Internal Medicine [facility] Level 5A [address] [place] [address] Social History Date Tobacco Use [...] 9.9 (04/01/2017 No Josee, Component 10:37 AM HUMAN SERVICES INSTRUCTOR) NAHEED Simpson as of this encounter Visit Diagnoses Not on filein this encounter
--- OUTSIDE RECORDS SUMMARY | 2018-04-06 07:16 | XMS REPORT | Encounter Summary ---
Author Author [facility] Organization [facility] Address Unknown Phone Unavailable Care Team Providers Care Supervisor Testing Name Role Phone Belia Reid MD PCP Reason for Visit * Reason Comments Diabetes Encounter Details Care Team Description Date Type Department Nathan Crenshaw MD [address] [facility] [address] [place] [address] Uncontrolled type 2 diabetes mellitus with hyperglycemia ( HCC) (Primary Dx); Dyslipidemia; Diabetic polyneuropathy associated with type 2 diabetes mellitus (HCC) 03/20/2018 Office Visit [facility] Physicians - Internal Medicine [facility] [address] [place] [address] Social History Date Tobacco Use [...] travel history available. as of this encounter Last Filed Vital Signs Time Taken Vital Sign Reading 03/20/2018 12:54 PM BOILERMAKER'S ASSISTANT Blood Pressure 145/71 03/20/2018 12:54 PM BOILERMAKER'S ASSISTANT Pulse 64 - Temperature - - Respiratory Rate - - Oxygen Saturation - - Inhaled Oxygen - Concentration 03/20/2018 12:54 PM BOILERMAKER'S ASSISTANT Weight 97.9 kg (215 lb 14.4 oz) 03/20/2018 12:54 PM BOILERMAKER'S ASSISTANT Height 164.6 cm (5' 4.8") 03/20/2018 12:54 PM BOILERMAKER'S ASSISTANT Body Mass Index 36.15 in this encounter Patient Instructions * Patient Instructions* Nathan Crenshaw MD - 03/20/2018 1:00 PM BOILERMAKER'S ASSISTANT 1. The hemoglobin A1c is 9.6, down from 10.0. Our target is below 7.0. 2. I think you can tolerate a higher dose of metformin. Let's start with 500 mg twice a day. If you take the medication right at the end of the meal, last thing before you get up from the table, you are much less likely to have diarrhea. If you tolerate 500 mg twice a day, increase the evening dose to 1000 mg (two tablets, continuing 500 mg in the morning. If this goes well, you can increase the morning dose to 1000 mg. 3. Let's continue Lantus as you have been taking it, but be prepared to decrease the dose as you increase metformin. Call me any time if questions arise. 4. At the next visit, we may want to consider adding a third diabetes medication. In the meantime, I'd like to see you latest lipid profile ( cholesterol, triglycerides, etc. 5. I'd like to do a home oximetry. In order to do this, it would be best if you could get at least 4 hours sleep. One option would be to increase the evening gabapentin. I would expect this to produce better sleep. I've sent through a prescription for 100 mg gabapentin capsules to take with your evening 300 mg dose. 5. I'd like to see you again in 3 months. ERMAKER'S ASSISTANT in this encounter Progress Notes * Nathan Crenshaw MD - 03/20/2018 1:00 PM BOILERMAKER'S ASSISTANT Date of Service: 03/20/2018 Subjective: Diana Gregory is a 72 y.o. female. History of Present IllnessI am seeing Mrs. Gregory for the first time; she was previously seen at [facility] by Calvin Tripp. She takes metformin ER, 500 mg daily , and glargine, 38 units daily. She has not tolerated higher doses of metformin because of diarrhea, but it turns out that she has taken the medication at variable distance from meals. She does not have symptomatic hypoglycemia. The point of care hemoglobin A1c has decreased from 10.0% in November to 9.6% today. Her weight is relatively stable. It turns out that she was off insulin for a full month and resumed it only 1 week ago because of insurance issues. Her chief complaint is probably related to peripheral neuropathy; she complains of numbness and burning in the feet that predominates at night. She is a night owl, and typically goes to bed at 2 a.m. Dysesthesia is a prominent symptom, and she keeps her feet out from under the covers at night. She has decreased temperature discrimination in the feet. She is testing the blood glucose once or twice per day. She is near her all-time maximum weight, having weighed 115 pounds at high school graduation. She has been a night eater in the past. She has a pacemaker/defibrillator. ([id number]) Review of Systems Constitutional: Positive for fatigue and unexpected weight change. HENT: Positive for hearing loss. Respiratory: Positive for cough, shortness of breath and wheezing. Cardiovascular: Positive for palpitations and leg swelling. Endocrine: Positive for heat intolerance and polyuria. Genitourinary: Positive for dysuria. Musculoskeletal: Positive for back pain and myalgias. Skin: Rash, itching, calluses plantar surface of feet. Neurological: Positive for tremors, weakness, numbness and headaches. Psychiatric/Behavioral: Positive for sleep disturbance. The patient is nervous/ anxious. All other systems reviewed and are negative. Objective: ACCU-CHEK COMPACT TEST strp Use 1 each as directed daily. ACCU-CHEK SMARTVIEW TEST STRIP test strip Use one strip as directed twice daily. Alcohol Swabs (BD SINGLE USE SWABS REGULAR) padm Use as directed with blood sugar checks aspirin EC 81 mg tablet Take 81 mg by mouth daily. Take with food. Blood Glucose Control High&Low soln Use to test accuracy of glucometer Blood-Glucose Calibrat Control cmpk Use as directed blood-glucose meter kit Use 1 strip as directed twice daily. E11.[address] Carrillo busPIRone (BUSPAR) 5 mg tablet Take 5 mg by mouth three times daily. estradiol (ESTRACE) 0.01 % (0.1 mg/g) vaginal cream Insert or Apply to vaginal area three times weekly. Apply as directed, apply at bedtime gabapentin enacarbil 300 mg TbER Take by mouth. insulin glargine (LANTUS SOLOSTAR, BASAGLAR) 100 unit/mL (3 mL) injection PEN Inject thirty eight Units under the skin daily. ICD-10:E11.65 insulin pen needles (disposable) (BD UF TETO PEN NEEDLES) 32 gauge x 5/32" pen needle Use one each as directed daily. Use with insulin injections. lancets MISC Use one each as directed twice daily. LORazepam (ATIVAN) 0.5 mg tablet Take 1 Tab by mouth every 6 hours as needed for Nausea. Indications: takes 4-5 prn metFORMIN-XR(+) (GLUCOPHAGE XR) 500 mg extended release tablet Take 4 tablets by mouth daily with dinner. (Patient taking differently: Take 500 mg by mouth daily with dinner.) metoprolol XL (TOPROL XL) 100 mg extended release tablet Take 100 mg by mouth daily. omeprazole DR(+) (PRILOSEC) 40 mg capsule other medication Take 1 Dose by mouth as Needed. Medication Name & Strength : cough syrup Dose(how many):as directed Frequency(how often): prn Indications: could not remember name for cough with bronchitis pramipexole (MIRAPEX) 1 mg tablet Take 1 mg by mouth daily. propranolol (INDERAL) 40 mg tablet Take 40 mg by mouth three times daily. Vitals: 03/20/18 1254 BP: 145/71 Pulse: 64 Weight: 97.9 kg (215 lb 14.4 oz) Height: 164.6 cm (64.8") Body mass index is 36.15 kg/m. Physical Exam Constitutional: She is oriented to person, place, and time. She appears well- developed and well-nourished. HENT: Head: Normocephalic. Eyes: Conjunctivae are normal. Neck: Normal range of motion. Cardiovascular: Normal rate, regular rhythm, normal heart sounds and intact distal pulses. Pulmonary/Chest: Effort normal and breath sounds normal. Abdominal: Soft. Bowel sounds are normal. Musculoskeletal: Normal range of motion. Neurological: She is alert and oriented to person, place, and time. Achilles reflexes present and symmetric. Vibratory sensation normal, light touch sensation (10 g monofilament) reduced in feet. Skin: Skin is warm and dry. Psychiatric: She has a normal mood and affect. Her behavior is normal. Nursing note and vitals reviewed. Assessment and Plan: ASSESSMENT: 1. Type 2 diabetes, uncontrolled. 2. Symmetric peripheral neuropathy of diabetes. 3. Sleep disorder. PLAN: She has had a sleep study in the past, but it was unsatisfactory, she says, because she did not go to sleep. I have requested a home overnight oximetry. She has been taking gabapentin, 300 mg in the evening, and I have sent through a new prescription for 100 mg capsules so that she may increase the dose to 400 mg in the evening. Higher doses may eventually be required to improve sleep quality. I have given her a schedule to increase metformin in divided doses, with emphasis on the timing of the medication. She should take it right at the end of meals, last thing before getting up from the table. She should be prepared to reduce the dose of glargine if blood sugars decrease in response to a higher dose of metformin. I have asked her to obtain the results of her most recent lipid profile. We will see her again in 3 months. (DOC:[id number]) ERMAKER'S ASSISTANT * Nathan Crenshaw MD - 03/20/2018 1:00 PM BOILERMAKER'S ASSISTANT Date of Service: 03/20/2018 Entered in error ERMAKER'S ASSISTANT in this encounter Plan of Treatment Not on fileas of this encounter Goals Goal Patient Associated Recent Progress Patient-Stat Author Goal Type Problems ed? HEMOGLOBIN A1C < 7.5 Result 9.9 (04/01/2017 No Josee, Component 10:37 AM BOILERMAKER'S ASSISTANT) NAHEED Simpson as of this encounter Visit Diagnoses Diagnosis Uncontrolled type 2 diabetes mellitus with hyperglycemia (HCC) - Primary Dyslipidemia Other and unspecified hyperlipidemia Diabetic polyneuropathy associated with type 2 diabetes mellitus (HCC) in this encounter
--- OUTSIDE RECORDS SUMMARY | 2018-04-06 07:16 | XMS REPORT | Encounter Summary ---
Author Author [facility] Organization [facility] Address Unknown Phone Unavailable Care Team Providers Care Children Teacher Name Role Phone Belia Reid MD PCP Reason for Visit * Reason Comments Medication Refill testing supplies Encounter Details Care Team Description Date Type Department Calvin Tripp, MITOCHONDRIAL DISORDERS COUNSELOR [address] [place] [address] [phone] Medication Refill (testing supplies) 02/19/2018 Telephone [facility] Physicians - Internal Medicine Ortho and Medical Pav[facility] Level 5A [address] [place] [address] Social History Date Tobacco Use Types Packs/Day [...] as of this encounter Miscellaneous Notes * Addendum Note - Usama Philippe RN - 02/19/2018 9:55 AM MACHINE SORTER Addended by: USAMA PHILIPPE on: 02/19/2018 09:55 AM Modules accepted: Orders INE SORTER * Telephone Encounter - Usama Philippe RN - 02/19/2018 9:52 AM MACHINE SORTER Received second fax from [facility], requesting control solution and BD single use swab Scripts sent per protocol INE SORTER * Telephone Encounter - Usama Philippe RN - 02/19/2018 9:29 AM MACHINE SORTER Received fax from [facility] pharmacy Requesting Accu-chek maria dolores smartview meter, accu-chek smartview test strip, and accu-chek fastclix lancet drum Scripts sent per protocol INE SORTER in this encounter Plan of Treatment Not on fileas of this encounter Goals Goal Patient Associated Recent Progress Patient-Stat Author Goal Type Problems ed? HEMOGLOBIN A1C < 7.5 Result 9.9 (04/01/2017 No Josee, Component 10:37 AM MACHINE SORTER) NAHEED Simpson as of this encounter Visit Diagnoses Diagnosis Uncontrolled type 2 diabetes mellitus with hyperglycemia (HCC) in this encounter
--- OUTSIDE RECORDS SUMMARY | 2018-04-06 07:16 | XMS REPORT | Encounter Summary ---
Author Author [facility] Organization [facility] Address Unknown Phone Unavailable Care Team Providers Care Net Development Manager Name Role Phone Belia Reid MD PCP Reason for Visit * Reason Comments Medication Problem Lantus refills/[employer] Encounter Details Care Team Description Date Type Department Calvin Tripp APRN [address] [place] [address] Medication Problem (Lantus refills/[employer]) 02/21/2018 Telephone [facility] Physicians - Internal Medicine [facility] [address] [place] [address] Social History Date Tobacco Use [...] Telephone Encounter - Laura Verdin RN - 02/21/2018 3:40 PM CONTRACT CLERK AUTOMOBILE Contacted pt and message given Understanding verbalized Closing encounter RACT CLERK AUTOMOBILE * Telephone Encounter - Calvin Tripp APRN - 02/21/2018 3:22 PM CONTRACT CLERK AUTOMOBILE Thank you for sending the lantus refill. She may increase the metformin if she can tolerate it without GI upset. May add 1 extra tab/day. RACT CLERK AUTOMOBILE * Telephone Encounter - Laura Verdin RN - 02/21/2018 2:06 PM CONTRACT CLERK AUTOMOBILE Pt called, verbalized she had called a week ago and had heard from anyone about her Lantus refill concerns She has been out of Lantus for a week now, and needs the script sent to [facility] pharmacy She is only wanting a 30 day supply sent to [facility] with refills She verbalized she is using Lantus 38 units at this time, not 20 units as previous script indicates She is also asking, if she should increase her Metformin dosing, till she receives her Lantus in 10 days or so? Tip, please advise, thank you. RACT CLERK AUTOMOBILE in this encounter Plan of Treatment Not on fileas of this encounter Goals Goal Patient Associated Recent Progress Patient-Stat Author Goal Type Problems ed? HEMOGLOBIN A1C < 7.5 Result 9.9 (04/01/2017 No Josee, Component 10:37 AM CONTRACT CLERK AUTOMOBILE) NAHEED Simpson as of this encounter Visit Diagnoses Not on filein this encounter
--- OUTSIDE RECORDS SUMMARY | 2018-04-06 07:16 | XMS REPORT | Encounter Summary ---
Author Author [facility] Organization [facility] Address Unknown Phone Unavailable Care Team Providers Care Medical Sociologist Name Role Phone Belia Reid MD PCP Reason for Visit * Reason Comments Medication Refill Encounter Details Care Team Description Date Type Department Calvin Tripp APRN [address] [place] [address] [phone] 02/27/2018 Refill [facility] Physicians - Internal Medicine [facility] [address] [place] [address] Social History Date Tobacco Use Types Packs/Day [...] 9.9 (04/01/2017 No Josee, Component 10:37 AM STORAGE AND BACKUP ADMINISTRATOR) NAHEED Simpson as of this encounter Visit Diagnoses Not on filein this encounter
--- OUTSIDE RECORDS SUMMARY | 2018-04-06 07:16 | XMS REPORT | Encounter Summary ---
Author Author [facility] Organization [facility] Address Unknown Phone Unavailable Care Team Providers Care Turntable Operator Name Role Phone Belia Reid MD PCP Reason for Visit * Reason Comments Medication Refill Encounter Details Care Team Description Date Type Department Calvin Tripp APRN [address] [place] [address] [phone] Type 2 diabetes mellitus with hyperglycemia, without long- term current use of insulin (HCC) (Primary Dx) 03/18/2018 Refill [facility] Physicians - Internal Medicine [facility] Medical [facility] [address] [place] [address] Social History Date Tobacco Use Types Packs/Day [...] 9.9 (04/01/2017 No Josee, Component 10:37 AM CHIEF WRITER) NAHEED Simpson as of this encounter Visit Diagnoses Diagnosis Type 2 diabetes mellitus with hyperglycemia, without long-term current use of insulin (HCC) - Primary in this encounter
[2018-04-06] MEDS ORDERED: ASPIRIN 81 MG CHEW (CHILDREN'S ASA) ONE (07:22)
[2018-04-06] MEDS ORDERED: NITROGLYCERIN 0.4 MG SL TABS BTL 25'S SL ONE (07:22)
[2018-04-06] MEDS ORDERED: ASPIRIN 81 MG CHEW (CHILDREN'S ASA) PO ONE (07:30)
[2018-04-06] MEDS ORDERED: NITROGLYCERIN 0.4 MG SL TABS BTL 25'S SL PRN (07:30)
[2018-04-06] MEDS ORDERED: RT-ALBUTEROL/IPRATROPIUM 3 ML (DUONEB) VIAL INH ONE (07:30)
--- NOTE | 2018-04-06 07:38 | ED Chest Pain ---
General Chief Complaint: Chest Pain Stated Complaint: TROUBLE BREATHING/CHEST TIGHTNESS Nursing Triage Note: PT PRESENTS TO ED WITH COMPLAINTS OF SOA, FAINTNESS, AND CHEST TIGHTNESS THAT RADIATES TO HER BACK STARTING AROUND 0200 THIS AM. PT REPORTS SHE HAS SOME CHEST TIGHTNESS ALL THE TIME BUT IT IS WORSE TODAY. Nursing Sepsis Screen: No Definite Risk Source: patient Exam Limitations: no limitations History of Present Illness Date Seen by Provider: Apr 06, 2018 Time Seen by Provider: 07:12 Initial Comments Here with report of central chest discomfort that she describes as tightness that radiates to her back. It started about 1 or 2 a.m. this morning. She states that it has gotten worse overnight. She states that she does have COPD and she wears oxygen at night. She did not think to use her nebulizer or inhaler. She states that the chest tightness usually goes away on its own. Denies nausea or vomiting but feels weak. Reports blood sugar in the 120s this morning and that she did take her insulin. Timing/Duration: 4-6 hours Severity/Quality: moderate, tightness Location: central Radiation: back Activities at Onset: none Prior CP/Workup: cardiac cath, echocardiography, stress test Modifying Factors: improves with rest ASA po COLON AND RECTAL SURGEON: No NTG SL COLON AND RECTAL SURGEON: No Associated Symptoms: No abdominal pain, No diaphoresis, No dizziness, No edema , No fever/chills, No nausea/vomiting; shortness of breath, weakness Allergies and Home Medications Allergies Coded Allergies: milk (Verified Allergy, Intermediate, 10/16/17) hydromorphone (Verified Allergy, Mild, STRONG RASH, 06/08/16) Penicillins (Unverified Allergy, Unknown, Pt has received Cefepime & Ceftriaxone in the past w/o issue, 01/18/17) Sulfa (Sulfonamide Antibiotics) (Verified Allergy, Unknown, 06/08/16) aspirin (Verified Adverse Reaction, Mild, ASPIRIN SENSITIVE, 06/08/16) sumatriptan (Verified Adverse Reaction, Mild, PALPITATIONS, 06/08/16) Uncoded Allergies: EGG WHITES (Allergy, Unknown, 10/16/17) Home Medications Amitriptyline HCl 50 Mg Tablet, 50 MG PO DAILY, (Reported) Benzonatate 100 Mg Capsule, 1-2 TAB PO TID Prescribed by: PETER ASHLEY on 07/15/172054 Buspirone HCl 5 Mg Tablet, 5 MG PO TID, (Reported) Glimepiride 4 Mg Tablet, 4 MG PO BID, (Reported) Lorazepam 0.5 Mg Tablet, 0.5 MG PO TID PRN for ANXIETY, (Reported) Meloxicam 15 Mg Tablet, 15 MG PO DAILY Prescribed by: PETER ASHLEY on 01/06/181901 Meloxicam 7.5 Mg Tablet, 7.5 MG PO DAILY Prescribed by: EARNESTINE CAMARGO on 01/27/181104 Methocarbamol 500 Mg Tablet, 500 MG PO QID Prescribed by: PETER ASHLEY on 10/02/171858 Methocarbamol 500 Mg Tablet, 500 MG PO QID Prescribed by: PETER ASHLEY on 01/06/181901 Methocarbamol 500 Mg Tablet, 500 MG PO QID Prescribed by: PETER ASHLEY on 02/15/181916 Omeprazole 40 Mg Capsule.dr, 40 MG PO BID, (Reported) Ondansetron 4 Mg Tab.rapdis, 4 MG PO Q4H Prescribed by: PETER ASHLEY on 10/02/171858 Pramipexole Di-HCl 1 Mg Tablet, 1 MG PO DAILY, (Reported) Promethazine HCl/Codeine 118 Ml Syrup, 5 ML PO Q4H Prescribed by: PETER ASHLEY on 07/15/172054 Propranolol HCl 60 Mg Tablet, 60 MG PO BID, (Reported) Sucralfate 1 Gm/10 Ml Oral.susp, 1 GM PO QID AC AND HS Prescribed by: PETER ASHLEY on 07/15/172054 Patient Home Medication List Home Medication List Reviewed: Yes Review of Systems Review of Systems Constitutional: see HPI; No chills, No fever Respiratory: Denies Cough; Shortness of Air; Denies Wheezing Cardiovascular: Chest Pain, Palpitations Gastrointestinal: Denies Nausea, Denies Vomiting Genitourinary: No Symptoms Reported Musculoskeletal: back pain, muscle pain (chronic) Skin: no symptoms reported Psychiatric/Neurological: No Symptoms Reported Endocrine: No Symptoms Reported All Other Systems Reviewed Negative Unless Noted: Yes Past Ojwliba-Qhvwxj-Goefvt Hx Past Med/Social Hx: Reviewed Nursing Past Med/Soc Hx Patient Social History Alcohol Use: Denies Use Recreational Drug Use: No Smoking Status: Never a Smoker 2nd Hand Smoke Exposure: Yes Recent Foreign Travel: No Contact w/Someone Who Travel: No Recent Infectious Disease Expo: No Recent Hopitalizations: No Physical Abuse: No Sexual Abuse: No Mistreated: No Fear: No Immunizations Up To Date Tetanus Booster (TDap): Unknown PED Vaccines UTD: No Date of Pneumonia Vaccine: May 24, 2012 Date of Influenza Vaccine: Jan 25, 2016 Seasonal Allergies Seasonal Allergies: Yes Past Medical History Surgeries: Yes Abdominal, Appendectomy, Cardiac, Defibrillator, Eye Surgery, Gallbladder, Hysterectomy, Oophorectomy, Orthopedic, Pacemaker, Tonsillectomy Respiratory: Yes Asthma, Pneumonia, Chronic Bronchitis, Sleep Apnea, COPD Currently Using CPAP: No Currently Using BIPAP: No Cardiac: Yes (SUDDEN CARDIAC ARREST IN 2010 WHEN GETTING PREPPED FOR SURGERY) High Cholesterol, Irregular Heartbeat Neurological: Yes (PERIPHERAL NEUROPATHY--HANDS AND FEET) Headaches /Migraines, Neuropathy 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 Disorders: No Female 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 Disorders: Denies ASSEMBLER GOLD FRAME History: Hysterectomy, Menopausal Sexually Transmitted Disease: No Genitourinary: Yes Kidney Infection, Bladder Infection, Kidney Stones, UTI-Chronic Gastrointestinal: Yes (S/P CORNELIUS FUNDOPLICATION; ESOPHAGEAL STRICTURES/ DILATIONS; DYSPHAGIA) Gastroesophageal Reflux, Diverticulosis, Hemorrhoids, Polyps, C-Diff, Hiatal Hernia, Ulcer, Gall Bladder Disease, Irritable Bowel Musculoskeletal: Yes Degenerate Disk Disease, Arthritis, Fibromyalgia, Chronic Back Pain, Fractures Endocrine: Yes Diabetes, Insulin dep, Diabetes, Non-Insulin dep HEENT: Yes Cataract Loss of Vision: Denies Hearing Impairment: Denies Cancer: No Psychosocial: Yes Anxiety, Depression Integumentary: Yes Pruritis Blood Disorders: No Adverse Reaction/Blood Tranf: No Family Medical History Reviewed Nursing Family Hx Alzheimer's disease 19 FATHER Cardiovascular disease 19 FATHER 19 MOTHER Completed stroke 19 MOTHER Hypertension 19 FATHER 19 MOTHER Myocardial infarction 19 FATHER 19 MOTHER No Family History of: Diabetes mellitus Physical Exam Vital Signs Vital Signs - First Documented 04/06/18 07:14 Temp 96.9 Pulse 87 Resp 18 B/P (MAP) 148/101 (117) Pulse Ox 95 O2 Delivery Room Air Capillary Refill : Less Than 3 Seconds Height, Weight, BMI Height: 5'4.00" Weight: 215lbs. 0oz. 97.897386lc; 34.5 BMI Method:Stated General Appearance: No Apparent Distress, WD/WN HEENT: PERRL/EOMI, Pharynx Normal Neck: Normal Inspection, Non Tender, Supple Respiratory: Lungs Clear, Normal Breath Sounds Cardiovascular: Regular Rate, Rhythm, No Murmur Gastrointestinal: Non Tender, Soft Extremity: Normal Range of Motion, Non Tender, No Calf Tenderness, No Pedal Edema Neurologic/Psychiatric: Alert, Oriented x3, No Motor/Sensory Deficits, 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 Skin: Normal Color, Warm/Dry Progress/Results/Core Measures Results/Orders Lab Results Laboratory Tests Test 04/06/18 07:35 04/06/18 08:03 Range/Units Prothrombin Time 12.2 12.2-14.7 SEC INR Comment 0.9 0.8-1.4 Activated Partial Thromboplast Time 24 24-35 SEC Sodium Level 139 135-145 MMOL/L Potassium Level 3.9 3.6-5.0 MMOL/L Chloride Level 103 98-107 MMOL/L Carbon Dioxide Level 22 21-32 MMOL/L Anion Gap 14 5-14 MMOL/L Blood Urea Nitrogen 9 7-18 MG/DL Creatinine 0.77 0.60-1.30 MG/DL Estimat Glomerular Filtration Rate > 60 BUN/Creatinine Ratio 12 Glucose Level 157 H 70-105 MG/DL Calcium Level 9.2 8.5-10.1 MG/DL Corrected Calcium 9.4 8.5-10.1 MG/DL Magnesium Level 2.1 1.8-2.4 MG/DL Total Bilirubin 0.4 0.1-1.0 MG/DL Aspartate Amino Transf (AST/SGOT) 32 5-34 U/L Alanine Aminotransferase (ALT/SGPT) 29 0-55 U/L Alkaline Phosphatase 90 40-136 U/L Myoglobin 73.4 10.0-92.0 NG/ML Troponin I < 0.028 <0.028 NG/ML Total Protein 6.7 6.4-8.2 GM/DL Albumin 3.8 3.2-4.5 GM/DL White Blood Count 7.9 4.3-11.0 10^3/uL Red Blood Count 4.57 4.35-5.85 10^6/uL Hemoglobin 13.9 11.5-16.0 G/DL Hematocrit 42 35-52 % Mean Corpuscular Volume 91 80-99 FL Mean Corpuscular Hemoglobin 30 25-34 PG Mean Corpuscular Hemoglobin Concent 33 32-36 G/DL Red Cell Distribution Width 13.4 10.0-14.5 % Platelet Count 230 130-400 10^3/uL Mean Platelet Volume 9.8 7.4-10.4 FL Neutrophils (%) (Auto) 63 42-75 % Lymphocytes (%) (Auto) 30 12-44 % Monocytes (%) (Auto) 5 0-12 % Eosinophils (%) (Auto) 2 0-10 % Basophils (%) (Auto) 1 0-10 % Neutrophils # (Auto) 4.9 1.8-7.8 X 10^3 Lymphocytes # (Auto) 2.4 1.0-4.0 X 10^3 Monocytes # (Auto) 0.4 0.0-1.0 X 10^3 Eosinophils # (Auto) 0.2 0.0-0.3 10^3/uL Basophils # (Auto) 0.0 0.0-0.1 10^3/uL B-Type Natriuretic Peptide 28.6 <100.0 PG/ML My Orders Orders - CHERRIE CHURCH MD Cbc With Automated Diff (04/06/18 07:23) Magnesium (04/06/18 07:23) Chest 1 View, Ap/Pa Only (04/06/18 07:23) Ekg Tracing (04/06/18 07:23) Cardiac Profile 1 (04/06/18 07:23) Comprehensive Metabolic Panel (04/06/18 07:23) Myoglobin Serum (04/06/18 07:23) Protime With Inr (04/06/18 07:23) Partial Thromboplastin Time (04/06/18 07:23) O2 (04/06/18 07:23) Monitor-Rhythm Ecg Trace Only (04/06/18 07:23) Lipid Panel (04/07/18 06:00) Aspirin Chewable Tablet (Baby Aspirin Ch (04/06/18 07:30) Nitroglycerin 0.4 Mg Btl 25's (Nitrostat (04/06/18 07:30) Saline Lock/Iv-Start (04/06/18 07:23) BNP (04/06/18 07:23) Albuterol/Ipra Inhalation Soln (Duoneb I (04/06/18 07:30) Svn Small Volume Nebulizer (04/06/18 07:23) Nitroglycerin 0.4 Mg Btl 25's (Nitrostat (04/06/18 07:22) Aspirin Chewable Tablet (Baby Aspirin Ch (04/06/18 07:22) Lorazepam Injection (Ativan Injection) (04/06/18 08:45) Methylprednisolone Sod Succ (Solu-Medrol (04/06/18 08:36) Medications Given in ED Current Medications Medications Dose Ordered Sig/Alannah Route Start Time Stop Time Status Last Admin Dose Admin Albuterol/ Ipratropium 3 ml ONCE ONCE INH 04/06/18 07:30 04/06/18 07:31 DC 04/06/18 07:34 3 ML Aspirin 324 mg ONCE ONCE PO 04/06/18 07:30 04/06/18 07:31 DC 04/06/18 07:27 324 MG Lorazepam 0.5 mg ONCE ONCE IVP 04/06/18 08:45 04/06/18 08:46 DC 04/06/18 09:16 0.5 MG Nitroglycerin 0.4 mg UD PRN SL 04/06/18 07:30 04/06/18 07:35 0.4 MG Vital Signs/I&O 04/06/18 04/06/18 04/06/18 07:14 07:14 07:34 Temp 96.9 Pulse 87 Resp 18 B/P (MAP) 148/101 (117) Pulse Ox 95 100 O2 Delivery Room Air Room Air Blood Pressure Mean: 117 Progress Progress Note : Progress Note Seen and evaluated. IV, labs, EKG and chest x-ray ordered. ASA 324 mg by mouth. Nitroglycerin sublingual ordered. Duo neb ordered. Monitor patient. 0838: Did not have appreciable difference with the nitroglycerin and breathing is better after DuoNeb. Does have coughing and vocal cord dysfunction that seems to be activated currently. Ativan 0.5 mg IV and Solu-Medrol 125 mg IV ordered. Monitor patient. 0950: All labs and x-ray are negative. No acute findings and no concerns for cardiac event especially since she's had this for 6 hours prior to arrival. Overall feels better. I do believe this is related more to her COPD and vocal cord dysfunction. This was discussed with her and she agrees. We will initiate outpatient steroid treatment and she will continue neb treatments and follow-up with her doctor. Discharged home with return precautions. Patient verbalize understanding instructions and agreement with plan. I will send a copy of the chart to Dr. Reid. Initial ECG Impression Date: Apr 06, 2018 Initial ECG Impression Time: 07:17 Initial ECG Rate: 85 Initial ECG Rhythm: Normal Sinus Comment Sinus rhythm with left axis deviation. Low voltage throughout with flat T waves throughout. Similar to previous of 11/03/17. No evidence of ST elevation [place]. Interpreted by me. Diagnostic Imaging Diagonstic Imaging: Xray Plain Films/CT/US/NM/MRI: chest Comments [facility] [place], [place] NAME: BRAYDON ARBOLEDA [facility] REC#: [id number] PT STATUS: REG ER : 1945 PHYSICIAN: CHERRIE CHURCH MD ADMIT DATE: 04/06/18/ER Draft Date of Exam:04/06/18 CHEST 1 VIEW, AP/PA ONLY INDICATION: Chest pain, cough. COMPARISON: 02/27/2018. FINDINGS: Single view of the chest demonstrates cardiac enlargement with new central vascular congestion. There is no pneumothorax or effusion. Pacemaker stable. Osseous structures are age-appropriate. IMPRESSION: Cardiac enlargement with new central vascular congestion. Dictated on workstation # [id number] Dict: 04/06/18 0805 Trans: 04/06/18 0808 [id number] Interpreted by: ALYCE BAKER Electronically signed by: Departure Impression Primary Impression: COPD exacerbation Additional Impression: Chest pain Qualified Codes: R07.9 - Chest pain, unspecified Disposition: 01 HOME, SELF-CARE Condition: Improved Departure-Patient Inst. Decision time for Depature: 09:55 Referrals: NANNETTE REID DO (PCP/Family) Primary Care Physician Patient Instructions: Chest Pain (DC), Chronic Obstructive Pulmonary Disease ( COPD), Including Emphysema Add. Discharge Instructions: All discharge instructions reviewed with patient and/or family. Voiced understanding. Take medications as directed. Follow-up with Dr. Reid in a few days for recheck. Call her office Saturday morning for appointment this week. Return for worse pain, fever, vomiting, weakness, rhythm problems or other concerns as needed. You should do your albuterol treatments at home every 4-6 hours as needed for chest tightness and or breathing problems. Scripts Prednisone (Prednisone) 20 Mg Tab 40 MG PO DAILY, #12 TAB 0 Refills Prov: CHERRIE CHURCH MD 04/06/18 Copy Copies To 1: NANNETTE REID TIMOTHY D MD Apr 06, 2018 07:38
[2018-04-06 08:07] LABS: ALANINE AMINOTRANSFERASE 29 U/L (0-55); ALBUMIN 3.8 GM/DL (3.2-4.5); ALKALINE PHOSPHATASE 90 U/L (40-136); BILIRUBIN,TOTAL 0.4 MG/DL (0.1-1.0); BUN/CREATININE RATIO 12; CALCIUM 9.2 MG/DL (8.5-10.1); CARBON DIOXIDE 22 MMOL/L (21-32); CHLORIDE 103 MMOL/L (98-107); CREATININE SERUM 0.77 MG/DL (0.60-1.30); GFR ESTIMATED > 60; GLUCOSE 157 MG/DL (70-105); MAGNESIUM 2.1 MG/DL (1.8-2.4); POTASSIUM 3.9 MMOL/L (3.6-5.0); SODIUM 139 MMOL/L (135-145); TOTAL PROTEIN 6.7 GM/DL (6.4-8.2)
--- NOTE | 2018-04-06 08:08 | Diagnostic Imaging Report ---
INDICATION: Chest pain, cough. COMPARISON: 02/27/2018. FINDINGS: Single view of the chest demonstrates cardiac enlargement with new central vascular congestion. There is no pneumothorax or effusion. Pacemaker stable. Osseous structures are age-appropriate. IMPRESSION: Cardiac enlargement with new central vascular congestion. Dictated by: Dictated on workstation # [id number]
[2018-04-06 08:09] LABS: BASOPHILS % (AUTO) 1 % (0-10); EOSINOPHILS # (AUTO) 0.2 10^3/uL (0.0-0.3); EOSINOPHILS % (AUTO) 2 % (0-10); HEMATOCRIT 42 % (35-52); HEMOGLOBIN 13.9 G/DL (11.5-16.0); LYMPHOCYTES # (AUTO) 2.4 X 10^3 (1.0-4.0); LYMPHOCYTES % (AUTO) 30 % (12-44); MEAN CORPUSCULAR HEMOGLOBIN 30 PG (25-34); MEAN CORPUSCULAR HGB CONC 33 G/DL (32-36); MEAN CORPUSCULAR VOLUME 91 FL (80-99); MEAN PLATELET VOLUME 9.8 FL (7.4-10.4); MONOCYTES # (AUTO) 0.4 X 10^3 (0.0-1.0); MONOCYTES % (AUTO) 5 % (0-12); NEUTROPHILS # (AUTO) 4.9 X 10^3 (1.8-7.8); NEUTROPHILS % (AUTO) 63 % (42-75); PLATELET COUNT 230 10^3/uL (130-400); RED CELL DISTRIBUTION WIDTH 13.4 % (10.0-14.5); WHITE BLOOD COUNT 7.9 10^3/uL (4.3-11.0)
[2018-04-06 08:13] LABS: MYOGLOBIN SERUM 73.4 NG/ML (10.0-92.0)
[2018-04-06 08:16] LABS: INR 0.9 (0.8-1.4); PROTHROMBIN TIME PATIENT 12.2 SEC (12.2-14.7)
[2018-04-06] MEDS ORDERED: methylPREDNISolone 125 MG (Solu-MEDROL) VIAL IV STA (08:36)
[2018-04-06] MEDS ORDERED: LORazepam INJ 2 MG/ML (ATIVAN) VIAL IVP ONE (08:45)
[2018-04-06] MEDS ORDERED: PRD20T PO (09:56)
[2018-04-06 10:20] VITALS: BP 123/74
== END 2018-04-06 10:20 | disposition home or self-care (01) ==
LOC: EDUNIT# 07:09 → ER 07:10
DX: J44.1 Chronic obstructive pulmonary disease with (acute) exacerbation (principal); R07.89 Other chest pain; G47.30 Sleep apnea, unspecified; I25.2 Old myocardial infarction; E78.00 Pure hypercholesterolemia, unspecified; G43.909 Migraine, unspecified, not intractable, without status migrainosus; K58.9 Irritable bowel syndrome, unspecified; E11.40 Type 2 diabetes mellitus with diabetic neuropathy, unspecified; F41.9 Anxiety disorder, unspecified; F32.9 Major depressive disorder, single episode, unspecified; K21.9 Gastro-esophageal reflux disease without esophagitis; Z87.19 Personal history of other diseases of the digestive system; Z87.442 Personal history of urinary calculi; Z87.448 Personal history of other diseases of urinary system; Z82.49 Family history of ischemic heart disease and other diseases of the circulatory system; Z87.440 Personal history of urinary (tract) infections; Z99.81 Dependence on supplemental oxygen; Z88.5 Allergy status to narcotic agent; Z88.0 Allergy status to penicillin; Z88.2 Allergy status to sulfonamides; Z88.6 Allergy status to analgesic agent; Z88.8 Allergy status to other drugs, medicaments and biological substances; Z79.4 Long term (current) use of insulin; Z77.22 Contact with and (suspected) exposure to environmental tobacco smoke (acute) (chronic); Z90.49 Acquired absence of other specified parts of digestive tract; Z95.810 Presence of automatic (implantable) cardiac defibrillator; Z90.89 Acquired absence of other organs; Z90.710 Acquired absence of both cervix and uterus; Z87.01 Personal history of pneumonia (recurrent)
CPT/HCPCS: 36415; 71045; 80053; 83735; 83874; 83880; 84484; 85025; 85610; 85730; 93005; 93041; 94640

== ENCOUNTER 2018-04-06 23:55 | Emergency (ER) | payer MEDICARE ==
[~2018-04-06] VITALS: Ht 172.7 cm; Wt 104.3 kg
--- OUTSIDE RECORDS SUMMARY | 2018-04-07 00:01 | XMS REPORT | Encounter Summary ---
Author Author [facility] Organization [facility] Address Unknown Phone Unavailable Care Team Providers Care Watershed Engineer Name Role Phone Belia Reid MD PCP Reason for Visit * Reason Comments Paperwork Mobile Med Care/Respiratory/Sleep Therapy Orders Encounter Details Care Team Description Date Type Department Nathan Crenshaw MD [address] [facility] [address] [place] [address] Paperwork (Mobile Med Care/Respiratory/Sleep Therapy Orders) 03/26/2018 Telephone [facility] Physicians - Internal Medicine [facility] [address] [place] [address] Social History Date Tobacco Use [...] Laura Verdin RN - 03/26/2018 8:25 AM PINSETTER MECHANIC HELPER Orders for Overnight Oximetry completed, signed and faxed to [facility]. Faxed with demographics, insurance information Fax confirmation 03/25/18 @ 1300 PM Form to PRR to scan to chart Closing encounter ETTER MECHANIC HELPER in this encounter Plan of Treatment Not on fileas of this encounter Goals Goal Patient Associated Recent Progress Patient-Stat Author Goal Type Problems ed? HEMOGLOBIN A1C < 7.5 Result 9.9 (04/01/2017 No Josee, Component 10:37 AM PINSETTER MECHANIC HELPER) Calvin, SHORT STORY WRITER as of this encounter Visit Diagnoses Not on filein this encounter
--- OUTSIDE RECORDS SUMMARY | 2018-04-07 00:01 | XMS REPORT | Encounter Summary ---
Author Author [facility] Organization [facility] Address Unknown Phone Unavailable Care Team Providers Care Lucerne Farmer Name Role Phone Belia Reid MD PCP Reason for Visit * Reason Comments Medication Refill Encounter Details Care Team Description Date Type Department Nathan Crenshaw MD [address] [facility] [address] [place] [address] 03/26/2018 Refill [facility] Physicians - Internal Medicine [facility] [address] [place] [address] Social History Date Tobacco Use [...] 9.9 (04/01/2017 No Josee, Component 10:37 AM SKI GUIDE) NAHEED Simpson as of this encounter Visit Diagnoses Not on filein this encounter
--- OUTSIDE RECORDS SUMMARY | 2018-04-07 00:01 | XMS REPORT | Encounter Summary ---
Author Author [facility] Organization [facility] Address Unknown Phone Unavailable Care Team Providers Care Cabana Attendant Name Role Phone Belia Reid MD PCP Reason for Visit * Reason Comments Medication Question Neurontin Encounter Details Care Team Description Date Type Department Nathan Crenshaw MD [address] [facility] [address] [place] [address] [phone] Medication Question (Neurontin) 03/27/2018 Telephone [facility] Physicians - Internal Medicine [facility] [address] [place] [address] Social History Date Tobacco Use Types Packs/Day [...] Babita Conteh LPN - 04/01/2018 12:28 PM YOGA COORDINATOR Called [employer] and advised Patient has no allergy to Gabapentin She has been on it for several months without issue They removed allergy from record and will ship it today, Patient notified COORDINATOR * Telephone Encounter - Nathan Crenshaw MD - 03/31/2018 8:49 AM YOGA COORDINATOR I reviewed my note, which says that she was already on gabapentin, and that I just adjusted the dose. Could you confirm this with her? If she was already taking the medication they should go ahead and fill the script for the same medication, generic gabapentin. COORDINATOR * Telephone Encounter - Hanna Kelly RN - 03/27/2018 11:01 AM YOGA COORDINATOR Received fax from [employer] Patient reports Neurotin Cap 100 mg allergy and there is potential for cross sensitivity . They are wanting confirmation it is okay to fill this med. COORDINATOR in this encounter Plan of Treatment Not on fileas of this encounter Goals Goal Patient Associated Recent Progress Patient-Stat Author Goal Type Problems ed? HEMOGLOBIN A1C < 7.5 Result 9.9 (04/01/2017 No Josee, Component 10:37 AM YOGA COORDINATOR) NAHEED Simpson as of this encounter Visit Diagnoses Not on filein this encounter
--- OUTSIDE RECORDS SUMMARY | 2018-04-07 00:01 | XMS REPORT | Clinical Summary ---
Author Author [facility] Organization [facility] Address Unknown Phone Unavailable Care Team Providers Care Automobile Inspector Name Role Phone Belia Reid MD PCP Source Comments Some departments are not documenting in the electronic medical record. If you do not see the information that you expected, contact Release of Information in the Health Information Management department at [phone] for further assistance in locating additional records.[facility] Allergies Comments Active Allergy Reactions Severity [...] recently Kidney stones 08/24/2016 Overview: -- 10/15/16: Pediatric Medical Assistant evaluation non-obstructing stone. CT shows a 4.6 [...] Taken Vital Sign Reading 03/20/2018 12:54 PM DESIGN STUDIO CONSULTANT Blood Pressure 145/71 03/20/2018 12:54 PM DESIGN STUDIO CONSULTANT Pulse 64 - Temperature - - Respiratory Rate - - Oxygen Saturation - - Inhaled Oxygen - Concentration 03/20/2018 12:54 PM DESIGN STUDIO CONSULTANT Weight 97.9 kg (215 lb 14.4 oz) 03/20/2018 12:54 PM DESIGN STUDIO CONSULTANT Height 164.6 cm (5' 4.8") 03/20/2018 12:54 PM DESIGN STUDIO CONSULTANT Body Mass Index 36.15 Plan of Treatment [...] 9.9 (04/01/2017 No Josee, Component 10:37 AM DESIGN STUDIO CONSULTANT) NAHEED Simpson Results Not on filefrom Last 3 Months Insurance Payer Benefit Subscriber ID Type Phone Address Plan / Group [employer] MEDICARE HU[employer]NA xxxxxxxxx Medicare CHOICE PPO Advance Directives Patient has advance care planning documents on file. For more information, please contact: [facility] [address] [place] [address]
--- OUTSIDE RECORDS SUMMARY | 2018-04-07 00:02 | XMS REPORT | Encounter Summary ---
Author Author [facility] Organization [facility] Address Unknown Phone Unavailable Care Team Providers Care Commercial Insulator Name Role Phone Belia Reid MD PCP Reason for Visit * Reason Comments Medication Refill testing supplies Encounter Details Care Team Description Date Type Department Calvin Tripp, PARAMEDIC [address] [place] [address] [phone] Medication Refill (testing supplies) 02/19/2018 Telephone [facility] Physicians - Internal Medicine [facility] Level [address] [place] [address] Social History Date Tobacco Use Types Packs/Day [...] Usama Philippe RN - 02/19/2018 9:55 AM MECHANICAL SPECIALIST Addended by: USAMA PHILIPPE on: 02/19/2018 09:55 AM Modules accepted: Orders ANICAL SPECIALIST * Telephone Encounter - Usama Philippe RN - 02/19/2018 9:52 AM MECHANICAL SPECIALIST Received second fax from [employer], requesting control solution and BD single use swab Scripts sent per protocol ANICAL SPECIALIST * Telephone Encounter - Usama Philippe RN - 02/19/2018 9:29 AM MECHANICAL SPECIALIST Received fax from [employer] pharmacy Requesting Accu-chek maria dolores smartview meter, accu-chek smartview test strip, and accu-chek fastclix lancet drum Scripts sent per protocol ANICAL SPECIALIST in this encounter Plan of Treatment Not on fileas of this encounter Goals Goal Patient Associated Recent Progress Patient-Stat Author Goal Type Problems ed? HEMOGLOBIN A1C < 7.5 Result 9.9 (04/01/2017 No Josee, Component 10:37 AM MECHANICAL SPECIALIST) NAHEED Simpson as of this encounter Visit Diagnoses Diagnosis Uncontrolled type 2 diabetes mellitus with hyperglycemia (HCC) in this encounter
--- OUTSIDE RECORDS SUMMARY | 2018-04-07 00:02 | XMS REPORT | Encounter Summary ---
Author Author [facility] Organization [facility] Address Unknown Phone Unavailable Care Team Providers Care Social Services Counselor Name Role Phone Belia Reid MD PCP Reason for Visit * Reason Comments Medication Refill Encounter Details Care Team Description Date Type Department Calvin Tripp APRN [address] [place] [address] [phone] 02/27/2018 Refill [facility] Physicians - Internal Medicine [facility] [address] [place] [address] Social History Date Tobacco Use Types Packs/Day [...] 9.9 (04/01/2017 No Josee, Component 10:37 AM WASH AND GREASER) NAHEED Simpson as of this encounter Visit Diagnoses Not on filein this encounter
--- OUTSIDE RECORDS SUMMARY | 2018-04-07 00:02 | XMS REPORT | Encounter Summary ---
Author Author [facility] Organization [facility] Address Unknown Phone Unavailable Care Team Providers Care Executive Business Coach Name Role Phone Belia Reid MD PCP Reason for Visit * Reason Comments Medication Refill Encounter Details Care Team Description Date Type Department Calvin Tripp APRN [address] [place] [address] [phone] Uncontrolled type 2 diabetes mellitus with hyperglycemia ( HCC) (Primary Dx) 02/12/2018 Refill [facility] Physicians - Internal Medicine [facility] [address] [place] [address] Social History Date Tobacco Use Types Packs/Day [...] 9.9 (04/01/2017 Leonela Tripp, Edilberto 10:37 AM SYSTEM ADMINISTRATOR) NAHEED Simpson as of this encounter Visit Diagnoses Diagnosis Uncontrolled type 2 diabetes mellitus with hyperglycemia (HCC) - Primary in this encounter
--- OUTSIDE RECORDS SUMMARY | 2018-04-07 00:02 | XMS REPORT | Encounter Summary ---
Author Author [facility] Organization [facility] Address Unknown Phone Unavailable Care Team Providers Care Engraving Plate Maker Name Role Phone Belia Reid MD PCP Reason for Visit * Reason Comments Medication Refill Encounter Details Care Team Description Date Type Department Calvin Tripp APRN [address] [place] [address] [phone] Uncontrolled type 2 diabetes mellitus with hyperglycemia ( HCC) (Primary Dx) 02/12/2018 Refill [facility] Physicians - Internal Medicine [facility] Level 5A [address] [place] [address] Social History Date Tobacco Use Types Packs/Day [...] 9.9 (04/01/2017 Leonela Tripp, Edilberto 10:37 AM HAY STACKER) NAHEED Simpson as of this encounter Visit Diagnoses Diagnosis Uncontrolled type 2 diabetes mellitus with hyperglycemia (HCC) - Primary in this encounter
--- OUTSIDE RECORDS SUMMARY | 2018-04-07 00:02 | XMS REPORT | Encounter Summary ---
Author Author [facility] Organization [facility] Address Unknown Phone Unavailable Care Team Providers Care Manager Cleaning Name Role Phone Belia Reid MD PCP Reason for Visit * Reason Comments Medication Refill Encounter Details Care Team Description Date Type Department Calvin Tripp APRN [address] [place] [address] 03/11/2018 Refill [facility] Physicians - Internal Medicine [facility] Level 5A [address] [place] [address] Social History Date Tobacco Use [...] 9.9 (04/01/2017 No Josee, Component 10:37 AM REPAIR DEPARTMENT SUPERVISOR) NAHEED Simpson as of this encounter Visit Diagnoses Not on filein this encounter
--- OUTSIDE RECORDS SUMMARY | 2018-04-07 00:02 | XMS REPORT | Encounter Summary ---
Author Author [facility] Organization [facility] Address Unknown Phone Unavailable Care Team Providers Care Outpatient Physical Therapist Name Role Phone Belia Reid MD PCP Reason for Visit * Reason Comments Medication Refill Encounter Details Care Team Description Date Type Department Nathan Crenshaw MD [address] [facility] [address] [place] [address] Diabetic polyneuropathy associated with type 2 diabetes mellitus (HCC) 03/25/2018 Refill [facility] Physicians - Internal Medicine [facility] Level 5A [address] [place] [address] Social History Date Tobacco Use [...] 9.9 (04/01/2017 No Josee, Component 10:37 AM CHEMICAL ANALYST) NAHEED Simpson as of this encounter Visit Diagnoses Diagnosis Diabetic polyneuropathy associated with type 2 diabetes mellitus (HCC) in this encounter
--- OUTSIDE RECORDS SUMMARY | 2018-04-07 00:02 | XMS REPORT | Encounter Summary ---
Author Author [facility] Organization [facility] Address Unknown Phone Unavailable Care Team Providers Care Underground Bolting Machine Operator Name Role Phone Belia Reid MD PCP Reason for Visit * Reason Comments Other Lantus Tier Exception-DENIED Encounter Details Care Team Description Date Type Department Calvin Tripp APRN [address] [place] [address] [phone] Other (Lantus Tier Exception-DENIED) 03/07/2018 Telephone [facility] Physicians - Internal Medicine [facility] Level 5A [address] [place] [address] Social History Date Tobacco Use Types Packs/Day [...] Safia Velazquez RN - 03/07/2018 3:13 PM HUMAN GEOGRAPHY INSTRUCTOR Called pt to update her Pt verbalized understanding N GEOGRAPHY INSTRUCTOR * Telephone Encounter - Calvin Tripp APRN - 03/07/2018 3:07 PM HUMAN GEOGRAPHY INSTRUCTOR I would suggest that she use NPH generic vials from [facility] [employer] for now, 15 units QAM and 10 units at dinner. She can buy these for $25/bottle without a prescription N GEOGRAPHY INSTRUCTOR * Telephone Encounter - Safia Velazquez RN - 03/07/2018 2:58 PM HUMAN GEOGRAPHY INSTRUCTOR Received fax from [facility] States Tier Exeption for lantus has been denied This is d/t the fact that there are no lower-cost alternatives Lantus is the lowest priced medication Routing to Tip Tripp APRN to make her aware, and for suggestions? N GEOGRAPHY INSTRUCTOR * Telephone Encounter - Safia Velazquez RN - 03/07/2018 9:18 AM HUMAN GEOGRAPHY INSTRUCTOR Pt called and [facility] States we sent a script in a few weeks ago to mail delivery [employer] for Lantus, but she hasn't received it yet When she called [facility] to check status, they told her she has a copay on it States her Lantus insulin is too expensive for her to afford Copay is going to be $130 for 3 month supply at [facility] It would be $90 for one month supply at [facility] She can get one pen at [facility] for $47 She only makes $700/month Pt states [facility] says all the insulin is expensive right now [facility] says this office could try to do Tier Exception [facility]acy # [phone] Pt has been off the insulin for a while She states her blood sugar this morning was 342 RN called [facility] to discuss Tier Exception Tier exception number [phone] Alternatives to Lantus: Oliverio Tristan Tresiba Lantus is the cheapest option out of those [facility] explained "In order to get tier exception, provider must explain why the lower-cost alternative medication would not be effective" RN explained that there are no other lower-cost alternatives, according to the information they provided Clinical questions were answered They are sending note to clinical team for review, will have response within 24- 48 hrs Reference # [id number] N GEOGRAPHY INSTRUCTOR in this encounter Plan of Treatment Not on fileas of this encounter Goals Goal Patient Associated Recent Progress Patient-Stat Author Goal Type Problems ed? HEMOGLOBIN A1C < 7.5 Result 9.9 (04/01/2017 No Josee, Component 10:37 AM HUMAN GEOGRAPHY INSTRUCTOR) NAHEED Simpson as of this encounter Visit Diagnoses Not on filein this encounter
--- OUTSIDE RECORDS SUMMARY | 2018-04-07 00:02 | XMS REPORT | Encounter Summary ---
Author Author [facility] Organization [facility] Address Unknown Phone Unavailable Care Team Providers Care Core Driller Helper Name Role Phone Belia Reid MD PCP Reason for Visit * Reason Comments Diabetes Encounter Details Care Team Description Date Type Department Nathan Crenshaw MD [address] [facility] [address] [place] [address] Uncontrolled type 2 diabetes mellitus with hyperglycemia ( HCC) (Primary Dx); Dyslipidemia; Diabetic polyneuropathy associated with type 2 diabetes mellitus (HCC) 03/20/2018 Office Visit [facility] Physicians - Internal Medicine [facility] [address] [place] [address] Social History Date Tobacco Use [...] Taken Vital Sign Reading 03/20/2018 12:54 PM VP INFORMATICS Blood Pressure 145/71 03/20/2018 12:54 PM VP INFORMATICS Pulse 64 - Temperature - - Respiratory Rate - - Oxygen Saturation - - Inhaled Oxygen - Concentration 03/20/2018 12:54 PM VP INFORMATICS Weight 97.9 kg (215 lb 14.4 oz) 03/20/2018 12:54 PM VP INFORMATICS Height 164.6 cm (5' 4.8") 03/20/2018 12:54 PM VP INFORMATICS Body Mass Index 36.15 in this encounter Patient Instructions * Patient Instructions* Nathan Crenshaw MD - 03/20/2018 1:00 PM VP INFORMATICS 1. The hemoglobin A1c is 9.6, down [...] to see you again in 3 months. INFORMATICS in this encounter Progress Notes * Nathan Crenshaw MD - 03/20/2018 1:00 PM VP INFORMATICS Date of Service: 03/20/2018 Subjective: Diana Gregory is a 72 y.o. female. History of Present IllnessI am seeing Mrs. Gregory for the first time; she was previously seen at [facility] by Calvin Tripp. She takes metformin ER, [...] in the past. She has a pacemaker/defibrillator. (DOC:[id number]) Review of Systems Constitutional: Positive for fatigue [...] will see her again in 3 months. (DOC:[id number]) INFORMATICS * Nathan Crenshaw MD - 03/20/2018 1:00 PM VP INFORMATICS Date of Service: 03/20/2018 Entered in error INFORMATICS in this encounter Plan of Treatment Not on fileas of this encounter Goals Goal Patient Associated Recent Progress Patient-Stat Author Goal Type Problems ed? HEMOGLOBIN A1C < 7.5 Result 9.9 (04/01/2017 No Josee, Component 10:37 AM VP INFORMATICS) NAHEED Simpson as of this encounter Visit Diagnoses Diagnosis Uncontrolled type 2 diabetes mellitus with hyperglycemia (HCC) - Primary Dyslipidemia Other and unspecified hyperlipidemia Diabetic polyneuropathy associated with type 2 diabetes mellitus (HCC) in this encounter
--- OUTSIDE RECORDS SUMMARY | 2018-04-07 00:02 | XMS REPORT | Encounter Summary ---
Author Author [facility] Organization [facility] Address Unknown Phone Unavailable Care Team Providers Care Lacing String Cutter Name Role Phone Belia Reid MD PCP Reason for Visit * Reason Comments Medication Problem Lantus refills/[employer] Encounter Details Care Team Description Date Type Department Calvin Tripp APRN [address] [place] [address] Medication Problem (Lantus refills/[employer]) 02/21/2018 Telephone [facility] Physicians - Internal Medicine [facility] [address] [place] [address] Social History Date Tobacco Use [...] Laura Verdin RN - 02/21/2018 3:40 PM ONLINE BANKING SPECIALIST Contacted pt and message given Understanding verbalized Closing encounter NE BANKING SPECIALIST * Telephone Encounter - Calvin Tripp APRN - 02/21/2018 3:22 PM ONLINE BANKING SPECIALIST Thank you for sending the lantus refill. She may increase the metformin if she can tolerate it without GI upset. May add 1 extra tab/day. NE BANKING SPECIALIST * Telephone Encounter - Laura Verdin RN - 02/21/2018 2:06 PM ONLINE BANKING SPECIALIST Pt called, verbalized she had called a week ago and had heard from anyone about her Lantus refill concerns She has been out of Lantus for a week now, and needs the script sent to [facility] pharmacy She is only wanting a 30 day supply sent to [facility] with refills She verbalized she is using Lantus 38 units at this time, not 20 units as previous script indicates She is also asking, if she should increase her Metformin dosing, till she receives her Lantus in 10 days or so? Tip, please advise, thank you. NE BANKING SPECIALIST in this encounter Plan of Treatment Not on fileas of this encounter Goals Goal Patient Associated Recent Progress Patient-Stat Author Goal Type Problems ed? HEMOGLOBIN A1C < 7.5 Result 9.9 (04/01/2017 No Josee, Component 10:37 AM ONLINE BANKING SPECIALIST) NAHEED Simpson as of this encounter Visit Diagnoses Not on filein this encounter
--- OUTSIDE RECORDS SUMMARY | 2018-04-07 00:02 | XMS REPORT | Encounter Summary ---
Author Author [facility] Organization [facility] Address Unknown Phone Unavailable Care Team Providers Care Town Marshal Name Role Phone Belia Reid MD PCP Reason for Visit * Reason Comments Medication Refill Encounter Details Care Team Description Date Type Department Calvin Tripp APRN [address] [place] [address] [phone] Type 2 diabetes mellitus with hyperglycemia, without long- term current use of insulin (HCC) (Primary Dx) 03/18/2018 Refill [facility] Physicians - Internal Medicine Ortho and Medical Pavilion Level 5A [address] [place] [address] Social History Date Tobacco Use Types Packs/Day [...] 9.9 (04/01/2017 No Josee, Component 10:37 AM INSULATION HOSEMAN) NAHEED Simpson as of this encounter Visit Diagnoses Diagnosis Type 2 diabetes mellitus with hyperglycemia, without long-term current use of insulin (HCC) - Primary in this encounter
--- OUTSIDE RECORDS SUMMARY | 2018-04-07 00:02 | XMS REPORT | Encounter Summary ---
Author Author [facility] Organization [facility] Address Unknown Phone Unavailable Care Team Providers Care Consultants Intern Name Role Phone Belia Reid MD PCP Reason for Visit * Reason Comments High Blood Sugar Encounter Details Care Team Description Date Type Department Nathan Crenshaw MD [address] [facility] [address] [place] [address] [phone] High Blood Sugar 03/21/2018 Telephone [facility] Physicians - Internal Medicine Orth[facility] Level 5A [address] [place] [address] Social History Date Tobacco Use Types Packs/Day [...] encounter Miscellaneous Notes * Telephone Encounter - Gein June, SHRAVAN - 03/21/2018 4:23 PM IRRADIATED FUEL HANDLER Patient left a VM stating she started [...] will call next week with an update. DIATED FUEL HANDLER in this encounter Plan of Treatment Not on fileas of this encounter Goals Goal Patient Associated Recent Progress Patient-Stat Author Goal Type Problems ed? HEMOGLOBIN A1C < 7.5 Result 9.9 (04/01/2017 No Josee, Component 10:37 AM IRRADIATED FUEL HANDLER) NAHEED Simpson as of this encounter Visit Diagnoses Not on filein this encounter
--- NOTE | 2018-04-07 00:31 | ED Headache ---
General Chief Complaint: Head/Cervical Problems Stated Complaint: MIGRAINE IS WORSE,BACK PAIN WORSE,COPD Nursing Triage Note: PT STATES SHE WAS RELEASED FROM THIS ED EARLIER TODAY, WENT HOME AND THIS EVENING BEGAN TO EXPERIENCE A SEVERE HEADACHE UNLIKE PREVIOUS HEADACHES SHE HAS HAD. PT STATES SHE WAS PLACED ON PREDISONE TODAY AND IS CONCERNED THIS IS A SIDE EFFECT OF THE MED, STATES HER BLOOD SUGARS HAVE BEEN IN THE 300'S TODAY. PT ALSO VERBALIZED INTERMITTENT CONGESTION AND INCREASED WORK OF BREATHING Nursing Sepsis Screen: No Definite Risk Source: patient Exam Limitations: no limitations History of Present Illness Date Seen by Provider: Apr 07, 2018 Time Seen by Provider: 00:14 Initial Comments Patient reports the ER by private conveyance for the second time today with chief complaint of chronic migraines for the past several months on her left side of her head constant. She gets some relief when she comes the ER about once every week or so she says but not so much today. Couple days ago she went saw her primary care doctor and was prescribed some kind of headache medicine which she took in its cause her to have some chest pain. She came in today to workup was told reason she is having chest pain was from her COPD. She's been using her albuterol every 6 hours through the nebulizer and started steroids today. She also noted her blood sugar to be 340. She is on Levemir 38 Lantus 38 units a day. She does not take short acting insulin. She follows with her hot end operator at and has planned in 3 months to start a short acting insulin when she follows up. She denies being on other blood sugar medicines except for metformin. Allergies and Home Medications Allergies Coded Allergies: milk (Verified Allergy, Intermediate, 10/16/17) hydromorphone (Verified Allergy, Mild, STRONG RASH, 06/08/16) Penicillins (Unverified Allergy, Unknown, Pt has received Cefepime & Ceftriaxone in the past w/o issue, 01/18/17) Sulfa (Sulfonamide Antibiotics) (Verified Allergy, Unknown, 06/08/16) aspirin (Verified Adverse Reaction, Mild, ASPIRIN SENSITIVE, 06/08/16) sumatriptan (Verified Adverse Reaction, Mild, PALPITATIONS, 06/08/16) Uncoded Allergies: EGG WHITES (Allergy, Unknown, 10/16/17) Home Medications Amitriptyline HCl 50 Mg Tablet, 50 MG PO DAILY, (Reported) Benzonatate 100 Mg Capsule, 1-2 TAB PO TID Prescribed by: PETER ASHLEY on 07/15/172054 Buspirone HCl 5 Mg Tablet, 5 MG PO TID, (Reported) Glimepiride 4 Mg Tablet, 4 MG PO BID, (Reported) Lorazepam 0.5 Mg Tablet, 0.5 MG PO TID PRN for ANXIETY, (Reported) Meloxicam 15 Mg Tablet, 15 MG PO DAILY Prescribed by: PETER ASHLEY on 01/06/181901 Meloxicam 7.5 Mg Tablet, 7.5 MG PO DAILY Prescribed by: EARNESTINE CAMARGO on 01/27/18 110 Methocarbamol 500 Mg Tablet, 500 MG PO QID Prescribed by: PETER ASHLEY on 10/02/171858 Methocarbamol 500 Mg Tablet, 500 MG PO QID Prescribed by: PETER ASHLEY on 01/06/181901 Methocarbamol 500 Mg Tablet, 500 MG PO QID Prescribed by: PETER ASHLEY on 02/15/181916 Omeprazole 40 Mg Capsule.dr, 40 MG PO BID, (Reported) Ondansetron 4 Mg Tab.rapdis, 4 MG PO Q4H Prescribed by: PETER ASHLEY on 10/02/171858 Pramipexole Di-HCl 1 Mg Tablet, 1 MG PO DAILY, (Reported) Prednisone 20 Mg Tab, 40 MG PO DAILY Prescribed by: CHERRIE CHURCH on 04/06/18 0956 Promethazine HCl/Codeine 118 Ml Syrup, 5 ML PO Q4H Prescribed by: PETER ASHLEY on 07/15/172054 Propranolol HCl 60 Mg Tablet, 60 MG PO BID, (Reported) Sucralfate 1 Gm/10 Ml Oral.susp, 1 GM PO QID AC AND HS Prescribed by: PETER ASHLEY on 07/15/172054 Patient Home Medication List Home Medication List Reviewed: Yes Review of Systems Review of Systems Constitutional: No chills, No diaphoresis Eyes: Denies Blindness, Denies Blurred Vision Ears, Nose, Mouth, Throat: denies ear pain, denies ear discharge Respiratory: No cough, No short of breath Cardiovascular: No chest pain, No edema; other (tightness in her back) Gastrointestinal: No abdominal pain, No constipation, No heartburn; nausea; No vomiting Genitourinary: No discharge, No dysuria Past Axqmini-Eousis-Mcghms Hx Patient Social History Alcohol Use: Denies Use Recreational Drug Use: No Smoking Status: Never a Smoker 2nd Hand Smoke Exposure: Yes Recent Foreign Travel: No Contact w/Someone Who Travel: No Recent Infectious Disease Expo: No Recent Hopitalizations: No Immunizations Up To Date Tetanus Booster (TDap): Unknown PED Vaccines UTD: No Date of Pneumonia Vaccine: May 24, 2012 Date of Influenza Vaccine: Jan 25, 2016 Seasonal Allergies Seasonal Allergies: Yes Past Medical History Surgeries: Yes Abdominal, Appendectomy, Cardiac, Defibrillator, Eye Surgery, Gallbladder, Hysterectomy, Oophorectomy, Orthopedic, Pacemaker, Tonsillectomy Respiratory: Yes Asthma, Pneumonia, Chronic Bronchitis, Sleep Apnea, COPD Currently Using CPAP: No Currently Using BIPAP: No Cardiac: Yes (SUDDEN CARDIAC ARREST IN 2010 WHEN GETTING PREPPED FOR SURGERY) High Cholesterol, Irregular Heartbeat Neurological: Yes (PERIPHERAL NEUROPATHY--HANDS AND FEET) Headaches /Migraines, Neuropathy : No 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 Disorders: No Female 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 Disorders: Denies EMBROIDERY OPERATOR History: Menopausal Sexually Transmitted Disease: No Genitourinary: Yes Kidney Infection, Bladder Infection, Kidney Stones, UTI-Chronic Gastrointestinal: Yes (S/P CORNELIUS FUNDOPLICATION; ESOPHAGEAL STRICTURES/ DILATIONS; DYSPHAGIA) Gastroesophageal Reflux, Diverticulosis, Hemorrhoids, Polyps, C-Diff, Hiatal Hernia, Ulcer, Gall Bladder Disease, Irritable Bowel Musculoskeletal: Yes Degenerate Disk Disease, Arthritis, Fibromyalgia, Chronic Back Pain, Fractures Endocrine: Yes Diabetes, Insulin dep, Diabetes, Non-Insulin dep HEENT: Yes Cataract Loss of Vision: Denies Hearing Impairment: Denies Cancer: No Psychosocial: Yes Anxiety, Depression Integumentary: Yes Pruritis Blood Disorders: No Adverse Reaction/Blood Tranf: No Family Medical History Alzheimer's disease 19 FATHER Cardiovascular disease 19 FATHER 19 MOTHER Completed stroke 19 MOTHER Hypertension 19 FATHER 19 MOTHER Myocardial infarction 19 FATHER 19 MOTHER No Family History of: Diabetes mellitus Physical Exam Vital Signs Vital Signs - First Documented 04/07/18 00:07 Temp 96.6 Pulse 86 Resp 20 B/P (MAP) 144/109 (121) Pulse Ox 94 O2 Delivery Room Air Capillary Refill : Less Than 3 Seconds Height, Weight, BMI Height: 5'8.00" Weight: 230lbs. 0oz. 104.281638ow; 34.5 BMI Method:Estimated General Appearance: WD/WN, mild distress HEENT: normal ENT inspection, TMs normal, pharynx normal, other (dark sunglasses) Neck: non-tender, full range of motion Cardiovascular: normal peripheral pulses, regular rate, rhythm, no edema Respiratory: normal breath sounds, no respiratory distress, no accessory muscle use Gastrointestinal: normal bowel sounds, non tender, soft Psychiatric: alert, oriented x 3 Crainal Nerves: normal hearing, normal speech Coordination/Gait: normal gait Skin: normal color, warm/dry Progress/Results/Core Measures Results/Orders Lab Results Laboratory Tests Test 04/07/18 00:39 Range/Units White Blood Count 10.1 4.3-11.0 10^3/uL Red Blood Count 4.49 4.35-5.85 10^6/uL Hemoglobin 13.4 11.5-16.0 G/DL Hematocrit 40 35-52 % Mean Corpuscular Volume 90 80-99 FL Mean Corpuscular Hemoglobin 30 25-34 PG Mean Corpuscular Hemoglobin Concent 33 32-36 G/DL Red Cell Distribution Width 13.2 10.0-14.5 % Platelet Count 276 130-400 10^3/uL Mean Platelet Volume 10.1 7.4-10.4 FL Neutrophils (%) (Auto) 90 H 42-75 % Lymphocytes (%) (Auto) 8 L 12-44 % Monocytes (%) (Auto) 2 0-12 % Eosinophils (%) (Auto) 0 0-10 % Basophils (%) (Auto) 0 0-10 % Neutrophils # (Auto) 9.1 H 1.8-7.8 X 10^3 Lymphocytes # (Auto) 0.8 L 1.0-4.0 X 10^3 Monocytes # (Auto) 0.2 0.0-1.0 X 10^3 Eosinophils # (Auto) 0.0 0.0-0.3 10^3/uL Basophils # (Auto) 0.0 0.0-0.1 10^3/uL Neutrophils % (Manual) 86 % Lymphocytes % (Manual) 12 % Monocytes % (Manual) 2 % Erythrocyte Sedimentation Rate 48 H 0-30 MM/HR Sodium Level 138 135-145 MMOL/L Potassium Level 4.0 3.6-5.0 MMOL/L Chloride Level 106 98-107 MMOL/L Carbon Dioxide Level 16 L 21-32 MMOL/L Anion Gap 16 H 5-14 MMOL/L Blood Urea Nitrogen 10 7-18 MG/DL Creatinine 0.85 0.60-1.30 MG/DL Estimat Glomerular Filtration Rate > 60 BUN/Creatinine Ratio 12 Glucose Level 395 H 70-105 MG/DL Calcium Level 9.1 8.5-10.1 MG/DL Corrected Calcium 9.3 8.5-10.1 MG/DL Total Bilirubin 0.3 0.1-1.0 MG/DL Aspartate Amino Transf (AST/SGOT) 26 5-34 U/L Alanine Aminotransferase (ALT/SGPT) 28 0-55 U/L Alkaline Phosphatase 101 40-136 U/L C-Reactive Protein High Sensitivity 0.64 H 0.00-0.50 MG/DL Total Protein 6.3 L 6.4-8.2 GM/DL Albumin 3.7 3.2-4.5 GM/DL My Orders Orders - ISRAEL ODELL Cbc With Automated Diff (04/07/18 00:25) Comprehensive Metabolic Panel (04/07/18 00:25) Hs C Reactive Protein (04/07/18 00:25) Erythrocyte Sedimentation Rate (04/07/18 00:25) Acetaminophen Tablet (Tylenol Tablet) (04/07/18 00:45) Ketorolac Injection (Toradol Injection) (04/07/18 00:45) Promethazine Injection (Phenergan Injec (04/07/18 00:45) Diphenhydramine Tablet (Benadryl Tablet) (04/07/18 00:45) Ondansetron Oral Dissolve Tab (Zofran (04/07/18 00:45) Manual Differential (04/07/18 00:39) Medications Given in ED Current Medications Medications Dose Ordered Sig/Alannah Route Start Time Stop Time Status Last Admin Dose Admin Diphenhydramine HCl 25 mg ONCE ONCE PO 04/07/18 00:45 04/07/18 00:46 DC 04/07/18 01:04 25 MG Ketorolac Tromethamine 30 mg ONCE ONCE IM 04/07/18 00:45 04/07/18 00:46 DC 04/07/18 01:04 30 MG Ondansetron HCl 4 mg ONCE ONCE PO 04/07/18 00:45 04/07/18 00:46 DC 04/07/18 01:04 4 MG Promethazine HCl 25 mg ONCE ONCE IM 04/07/18 00:45 04/07/18 00:46 DC 04/07/18 01:05 25 MG Vital Signs/I&O 04/07/18 00:07 Temp 96.6 Pulse 86 Resp 20 B/P (MAP) 144/109 (121) Pulse Ox 94 O2 Delivery Room Air Blood Pressure Mean: 121 Progress Progress Note : Time: 03:10 Progress Note Patient said her headache pain is improved moderately but not completely. Her nausea is gone. We are going to attempt another dose of Benadryl, Compazine and Reglan and allow her to go home get some sleep. Departure Impression Primary Impression: Headache Qualified Codes: R51 - Headache Disposition: 01 HOME, SELF-CARE Condition: Improved Departure-Patient Inst. Decision time for Depature: 03:11 Referrals: NANNETTE REVELES DO (PCP/Family) Primary Care Physician Patient Instructions: Migraine Headache (DC) Add. Discharge Instructions: Get some sleep and use Tylenol 1000 mg every 8 hours. Follow-up with primary care for your migraine headaches. All discharge instructions reviewed with patient and/or family. Voiced understanding. ISRAEL ODELL Apr 07, 2018 00:31
[2018-04-07 00:45] LABS: BASOPHILS % (AUTO) 0 % (0-10); EOSINOPHILS % (AUTO) 0 % (0-10); HEMATOCRIT 40 % (35-52); HEMOGLOBIN 13.4 G/DL (11.5-16.0); LYMPHOCYTES # (AUTO) 0.8 X 10^3 (1.0-4.0); LYMPHOCYTES % (AUTO) 8 % (12-44); MEAN CORPUSCULAR HEMOGLOBIN 30 PG (25-34); MEAN CORPUSCULAR HGB CONC 33 G/DL (32-36); MEAN CORPUSCULAR VOLUME 90 FL (80-99); MEAN PLATELET VOLUME 10.1 FL (7.4-10.4); MONOCYTES # (AUTO) 0.2 X 10^3 (0.0-1.0); MONOCYTES % (AUTO) 2 % (0-12); NEUTROPHILS # (AUTO) 9.1 X 10^3 (1.8-7.8); NEUTROPHILS % (AUTO) 90 % (42-75); PLATELET COUNT 276 10^3/uL (130-400); RED CELL DISTRIBUTION WIDTH 13.2 % (10.0-14.5); WHITE BLOOD COUNT 10.1 10^3/uL (4.3-11.0)
[2018-04-07] MEDS ORDERED: diphenhydrAMINE 25 MG TAB (BENADRYL) PO ONE ×2 (00:45→03:15)
[2018-04-07] MEDS ORDERED: KETOROLAC 30 MG/ML VIAL IM ONE (00:45)
[2018-04-07] MEDS ORDERED: ONDANSETRON 4 MG (ZOFRAN) ORAL DISSOLVE TAB PO ONE (00:45)
[2018-04-07] MEDS ORDERED: ACETAMINOPHEN 500 MG TAB (TYLENOL) PO ONE (00:45)
[2018-04-07] MEDS ORDERED: PROMETHAZINE INJ 25 MG/ML (PHENERGAN) AMP IM ONE (00:45)
[2018-04-07 01:02] LABS: ALANINE AMINOTRANSFERASE 28 U/L (0-55); ALBUMIN 3.7 GM/DL (3.2-4.5); ALKALINE PHOSPHATASE 101 U/L (40-136); BILIRUBIN,TOTAL 0.3 MG/DL (0.1-1.0); BUN/CREATININE RATIO 12; CALCIUM 9.1 MG/DL (8.5-10.1); CARBON DIOXIDE 16 MMOL/L (21-32); CHLORIDE 106 MMOL/L (98-107); CREATININE SERUM 0.85 MG/DL (0.60-1.30); GFR ESTIMATED > 60; GLUCOSE 395 MG/DL (70-105); SODIUM 138 MMOL/L (135-145); TOTAL PROTEIN 6.3 GM/DL (6.4-8.2)
[2018-04-07 01:53] LABS: LYMPHOCYTES % (MANUAL) 12 %; MONOCYTES % (MANUAL) 2 %; NEUTROPHILS % (MANUAL) 86 %
[2018-04-07 02:30] LABS: ERYTHROCYTE SEDIMENTATION RATE 48 MM/HR (0-30)
[2018-04-07] MEDS ORDERED: METOCLOPRAMIDE 10 MG (REGLAN) TAB PO ONE (03:15)
[2018-04-07] MEDS ORDERED: PROCHLORPERAZINE 10 MG/2ML INJ (COMPAZINE) INJ ONE (03:15)
[2018-04-07] MEDS: inSUlin (REGULAR) HUMAN 1 UNIT/0.01 ML (CHARGE PER UNIT) SC SCH ×2 (03:50→03:53)
[2018-04-07 03:55] VITALS: BP 143/98
== END 2018-04-07 04:00 | disposition home or self-care (01) ==
LOC: EDUNIT# 23:55 → ER 23:57
DX: R51 Headache (principal); J44.9 Chronic obstructive pulmonary disease, unspecified; G47.30 Sleep apnea, unspecified; E78.00 Pure hypercholesterolemia, unspecified; K21.9 Gastro-esophageal reflux disease without esophagitis; K58.9 Irritable bowel syndrome, unspecified; E11.40 Type 2 diabetes mellitus with diabetic neuropathy, unspecified; F41.9 Anxiety disorder, unspecified; F32.9 Major depressive disorder, single episode, unspecified; Z86.010 Personal history of colon polyps; Z87.19 Personal history of other diseases of the digestive system; Z82.49 Family history of ischemic heart disease and other diseases of the circulatory system; Z87.440 Personal history of urinary (tract) infections; Z87.448 Personal history of other diseases of urinary system; Z87.01 Personal history of pneumonia (recurrent); Z86.69 Personal history of other diseases of the nervous system and sense organs; Z88.5 Allergy status to narcotic agent; Z88.0 Allergy status to penicillin; Z88.2 Allergy status to sulfonamides; Z88.6 Allergy status to analgesic agent; Z88.8 Allergy status to other drugs, medicaments and biological substances; Z79.52 Long term (current) use of systemic steroids; Z79.4 Long term (current) use of insulin; Z77.22 Contact with and (suspected) exposure to environmental tobacco smoke (acute) (chronic); Z90.49 Acquired absence of other specified parts of digestive tract; Z98.890 Other specified postprocedural states; Z90.710 Acquired absence of both cervix and uterus; Z95.810 Presence of automatic (implantable) cardiac defibrillator; Z90.89 Acquired absence of other organs
CPT/HCPCS: 36415; 80053; 85007; 85027; 85652; 86141; 99283

== ENCOUNTER 2018-04-17 14:36 | Outpatient (CLI) | payer MEDICARE ==
[~2018-04-17] VITALS: Ht 165.1 cm; Wt 99.8 kg
[~2018-04-17 14:36] MED LIST changes: +ALBU2.5V4 INH; +GABA-486 PO; -INSU100I10; +INSU100I10 SQ; -METF500T8; +METF500T8 PO; +METO100T12 PO
[2018-04-17] MEDS ORDERED: IPRA3AMP31 NEB (16:12)
== END 2018-04-17 15:39 | disposition home or self-care (01) ==
LOC: PREOP 14:36
PROVIDERS: ATTEND Orthopaedic Surgery
DX: Z01.818 Encounter for other preprocedural examination (principal)

== ENCOUNTER 2018-04-21 06:01 | Inpatient (IN) | payer MEDICARE ==
--- NOTE | 2018-04-17 16:12 | NUR ---
WENT OVER THE EXT MED HX ON THE PHONE WITH THE PATIENT. SHE STATES SHE FILLED IMITREX IN MARCH BUT HAD A BAD REACTION AND CAN NO LONGER TAKE IT. SHE VERIFIED HOW SHE TAKES HER OTHER MEDICATIONS. SHE STATES SHE DOES TAKE METFORMIN HOWEVER I DO NOT SEE THE LAST FILL DATE RECENT. SHE STATES SHE GETS IT FROM THE [facility]. HER GABAPENTIN HAS BEEN PRESCRIBED IN TWO STRENGTHS. SHE GETS THE 300MG BID AND THE 100MG HS. THE 100MG WAS DISPENSED 300+ CAPSULES FOR A 90 DAY SUPPLY. SHE STATES SHE ONLY TAKES 1 ALONG WITH THE 300MG CAPSULE AT BEDTIME AND SHE IS UNSURE WHY THEY DISPENSED SO MANY AT ONE. THE DIRECTIONS ON THE BOTTLE STATE TO TAKE DIRECTED.
[~2018-04-21] VITALS: Ht 165.1 cm; Wt 99.8 kg
[2018-04-21] VITALS (15 sets, daily range): BP systolic 88–145; BP diastolic 38–83
--- OUTSIDE RECORDS SUMMARY | 2018-04-21 06:06 | XMS REPORT | Encounter Summary ---
Author Author [facility] Organization [facility] Address Unknown Phone Unavailable Care Team Providers Care Water Resources Program Director Name Role Phone Belia Reid MD PCP Reason for Visit * Reason Comments Medication Refill Encounter Details Care Team Description Date Type Department Calvin Tripp APRN [address] [place] [address] [phone] Uncontrolled type 2 diabetes mellitus with hyperglycemia ( HCC) (Primary Dx) 02/12/[address] [facility] Physicians - Internal Medicine [address] [place] [address] [place] [address] Social History Date Tobacco Use Types Packs/Day [...] 9.9 (04/01/2017 Leonela Tripp, Edilberto 10:37 AM BATTERY BUILDER) NAHEED Simpson as of this encounter Visit Diagnoses Diagnosis Uncontrolled type 2 diabetes mellitus with hyperglycemia (HCC) - Primary in this encounter
--- OUTSIDE RECORDS SUMMARY | 2018-04-21 06:06 | XMS REPORT | Encounter Summary ---
Author Author [facility] Organization [facility] Address Unknown Phone Unavailable Care Team Providers Care Slot Machine Floor Person Name Role Phone Belia Reid MD PCP Reason for Visit * Reason Comments Medication Refill Encounter Details Care Team Description Date Type Department Calvin Tripp APRN [address] [place] [address] [phone] Uncontrolled type 2 diabetes mellitus with hyperglycemia ( HCC) (Primary Dx) 02/12/2018 Refill [facility] Physicians - Internal Medicine [address] [place] [address] [place] [address] Social History Date Tobacco Use Types Packs/Day [...] 9.9 (04/01/2017 Leonela Tripp, Edilberto 10:37 AM DAIRY CHEMIST) NAHEED Simpson as of this encounter Visit Diagnoses Diagnosis Uncontrolled type 2 diabetes mellitus with hyperglycemia (HCC) - Primary in this encounter
--- OUTSIDE RECORDS SUMMARY | 2018-04-21 06:06 | XMS REPORT | Encounter Summary ---
Author Author [facility] Organization [facility] Address Unknown Phone Unavailable Care Team Providers Care Nozzle Tender Name Role Phone Belia Reid MD PCP Reason for Visit * Reason Comments Medication Refill testing supplies Encounter Details Care Team Description Date Type Department Calvin Tripp, INSTALLMENT AGENT [address] [place] [address] [phone] Medication Refill (testing supplies) 02/19/2018 Telephone [facility] Physicians - Internal Medicine [address] [facility] [place] [address] Social History Date Tobacco Use Types Packs/Day [...] Usama Philippe RN - 02/19/2018 9:55 AM SCREEN PRINTING PASTER Addended by: USAMA PHILIPPE on: 02/19/2018 09:55 AM Modules accepted: Orders EN PRINTING PASTER * Telephone Encounter - Usama Philippe RN - 02/19/2018 9:52 AM SCREEN PRINTING PASTER Received second fax from [facility], requesting control solution and BD single use swab Scripts sent per protocol EN PRINTING PASTER * Telephone Encounter - Usama Philippe RN - 02/19/2018 9:29 AM SCREEN PRINTING PASTER Received fax from [facility] pharmacy Requesting Accu-chek maria dolores smartview meter, accu-chek smartview test strip, and accu-chek fastclix lancet drum Scripts sent per protocol EN PRINTING PASTER in this encounter Plan of Treatment Not on fileas of this encounter Goals Goal Patient Associated Recent Progress Patient-Stat Author Goal Type Problems ed? HEMOGLOBIN A1C < 7.5 Result 9.9 (04/01/2017 No Josee, Component 10:37 AM SCREEN PRINTING PASTER) NAHEED Simpson as of this encounter Visit Diagnoses Diagnosis Uncontrolled type 2 diabetes mellitus with hyperglycemia (HCC) in this encounter
--- OUTSIDE RECORDS SUMMARY | 2018-04-21 06:06 | XMS REPORT | Encounter Summary ---
Author Author [facility] Organization [facility] Address Unknown Phone Unavailable Care Team Providers Care Manager Union Name Role Phone Belia Reid MD PCP Reason for Visit * Reason Comments Medication Question Neurontin Encounter Details Care Team Description Date Type Department Nathan Crenshaw MD [address] [facility] [address] [place] [address] [phone] Medication Question (Neurontin) 03/27/2018 Telephone [facility] Physicians - Internal Medicine [address] [facility] Ortho [place] [address] Social History Date Tobacco Use Types Packs/Day [...] Babita Conteh LPN - 04/01/2018 12:28 PM BUSINESS MACHINE OPERATOR Called [employer] and advised Patient has no allergy to Gabapentin She has been on it for several months without issue They removed allergy from record and will ship it today, Patient notified NESS MACHINE OPERATOR * Telephone Encounter - Nathan Crenshaw MD - 03/31/2018 8:49 AM BUSINESS MACHINE OPERATOR I reviewed my note, which says that she was already on gabapentin, and that I just adjusted the dose. Could you confirm this with her? If she was already taking the medication they should go ahead and fill the script for the same medication, generic gabapentin. NESS MACHINE OPERATOR * Telephone Encounter - Hanna Kelly RN - 03/27/2018 11:01 AM BUSINESS MACHINE OPERATOR Received fax from [facility] Patient reports Neurotin Cap 100 mg allergy and there is potential for cross sensitivity . They are wanting confirmation it is okay to fill this med. NESS MACHINE OPERATOR in this encounter Plan of Treatment Not on fileas of this encounter Goals Goal Patient Associated Recent Progress Patient-Stat Author Goal Type Problems ed? HEMOGLOBIN A1C < 7.5 Result 9.9 (04/01/2017 No Josee, Component 10:37 AM BUSINESS MACHINE OPERATOR) NAHEED Simpson as of this encounter Visit Diagnoses Not on filein this encounter
--- OUTSIDE RECORDS SUMMARY | 2018-04-21 06:06 | XMS REPORT | Encounter Summary ---
Author Author [facility] Organization [facility] Address Unknown Phone Unavailable Care Team Providers Care Aerospace Project Engineer Name Role Phone Belia Reid MD PCP Reason for Visit * Reason Comments Medication Refill Encounter Details Care Team Description Date Type Department Nathan Crenshaw MD [address] [facility] [address] [place] [address] Diabetic polyneuropathy associated with type 2 diabetes mellitus (HCC) 03/25/2018 Refill [facility] Physicians - Internal Medicine [address] [facility] [place] [address] Social History Date Tobacco Use [...] 9.9 (04/01/2017 No Josee, Component 10:37 AM STRUCTURAL ANALYSIS ENGINEER) NAHEED Simpson as of this encounter Visit Diagnoses Diagnosis Diabetic polyneuropathy associated with type 2 diabetes mellitus (HCC) in this encounter
--- OUTSIDE RECORDS SUMMARY | 2018-04-21 06:06 | XMS REPORT | Encounter Summary ---
Author Author [facility] Organization [facility] Address Unknown Phone Unavailable Care Team Providers Care Courtroom Reporter Name Role Phone Belia Reid MD PCP Reason for Visit * Reason Comments Paperwork Mobile Med Care/Respiratory/Sleep Therapy Orders Encounter Details Care Team Description Date Type Department Nathan Crenshaw MD [address] [facility] [address] [place] [address] Paperwork (Mobile Med Care/Respiratory/Sleep Therapy Orders) 03/26/2018 Telephone [facility] Physicians - Internal Medicine [facility] [address] [place] [address] Social History Date Tobacco Use [...] Laura Verdin RN - 03/26/2018 8:25 AM SERVER SOFTWARE ENGINEER Orders for Overnight Oximetry completed, signed and faxed to [facility]. Faxed with demographics, insurance information Fax confirmation 03/25/18 @ 1300 PM Form to PRR to scan to chart Closing encounter ER SOFTWARE ENGINEER in this encounter Plan of Treatment Not on fileas of this encounter Goals Goal Patient Associated Recent Progress Patient-Stat Author Goal Type Problems ed? HEMOGLOBIN A1C < 7.5 Result 9.9 (04/01/2017 No Josee, Component 10:37 AM SERVER SOFTWARE ENGINEER) Calvin, PULL THROUGH HOOKER as of this encounter Visit Diagnoses Not on filein this encounter
--- OUTSIDE RECORDS SUMMARY | 2018-04-21 06:06 | XMS REPORT | Encounter Summary ---
Author Author [facility] Organization [facility] Address Unknown Phone Unavailable Care Team Providers Care Farm Equipment Operator Name Role Phone Belia Reid MD PCP Reason for Visit * Reason Comments High Blood Sugar Encounter Details Care Team Description Date Type Department Nathan Crenshaw MD [address] [facility] [address] [place] [address] [phone] High Blood Sugar 03/21/2018 Telephone [facility] Physicians - Internal Medicine [address] [facility] [place] [address] Social History Date Tobacco Use Types Packs/Day [...] Miscellaneous Notes * Telephone Encounter - Geni Ludmila, SHRAVAN - 03/21/2018 4:23 PM HAND BANDER Patient left a VM stating she started [...] will call next week with an update. BANDER in this encounter Plan of Treatment Not on fileas of this encounter Goals Goal Patient Associated Recent Progress Patient-Stat Author Goal Type Problems ed? HEMOGLOBIN A1C < 7.5 Result 9.9 (04/01/2017 No Josee, Component 10:37 AM HAND BANDER) NAHEED Simpson as of this encounter Visit Diagnoses Not on filein this encounter
--- OUTSIDE RECORDS SUMMARY | 2018-04-21 06:06 | XMS REPORT | Encounter Summary ---
Author Author [facility] Address Unknown Phone Unavailable Care Team Providers Care Prosthetic Makeup Designer Name Role Phone Belia Reid MD PCP Reason for Visit * Reason Comments Diabetes Encounter Details Care Team Description Date Type Department Nathan Crenshaw MD [address] [facility] [address] [place] [address] Uncontrolled type 2 diabetes mellitus with hyperglycemia ( HCC) (Primary Dx); Dyslipidemia; Diabetic polyneuropathy associated with type 2 diabetes mellitus (HCC) 03/20/[address] [facility] Physicians - Internal Medicine [facility] [address] [place] [address] Social History Date Tobacco Use [...] Taken Vital Sign Reading 03/20/2018 12:54 PM AIR BRUSH ARTIST Blood Pressure 145/71 03/20/2018 12:54 PM AIR BRUSH ARTIST Pulse 64 - Temperature - - Respiratory Rate - - Oxygen Saturation - - Inhaled Oxygen - Concentration 03/20/2018 12:54 PM AIR BRUSH ARTIST Weight 97.9 kg (215 lb 14.4 oz) 03/20/2018 12:54 PM AIR BRUSH ARTIST Height 164.6 cm (5' 4.8") 03/20/2018 12:54 PM AIR BRUSH ARTIST Body Mass Index 36.15 in this encounter Patient Instructions * Patient Instructions* Nathan Crenshaw MD - 03/20/2018 1:00 PM AIR BRUSH ARTIST 1. The hemoglobin A1c is 9.6, down [...] to see you again in 3 months. BRUSH ARTIST in this encounter Progress Notes * Nathan Crenshaw MD - 03/20/2018 1:00 PM AIR BRUSH ARTIST Date of Service: 03/20/2018 Subjective: Diana Gregory is a 72 y.o. female. History of Present IllnessI am seeing Mrs. Gregory for the first time; she was previously seen at [facility] by Calvin Tripp. She takes metformin [...] in the past. She has a pacemaker/defibrillator. (DOC:[id number]) Review of Systems Constitutional: Positive for fatigue [...] will see her again in 3 months. (DOC:[id number]) BRUSH ARTIST * Nathan Crenshaw MD - 03/20/2018 1:00 PM AIR BRUSH ARTIST Date of Service: 03/20/2018 Entered in error BRUSH ARTIST in this encounter Plan of Treatment Not on fileas of this encounter Goals Goal Patient Associated Recent Progress Patient-Stat Author Goal Type Problems ed? HEMOGLOBIN A1C < 7.5 Result 9.9 (04/01/2017 No Josee, Component 10:37 AM AIR BRUSH ARTIST) NAHEED Simpson as of this encounter Visit Diagnoses Diagnosis Uncontrolled type 2 diabetes mellitus with hyperglycemia (HCC) - Primary Dyslipidemia Other and unspecified hyperlipidemia Diabetic polyneuropathy associated with type 2 diabetes mellitus (HCC) in this encounter
--- OUTSIDE RECORDS SUMMARY | 2018-04-21 06:06 | XMS REPORT | Clinical Summary ---
Author Author [facility] Organization [facility] Address Unknown Phone Unavailable Care Team Providers Care Sales Associate Key Holder Name Role Phone Belia Reid MD PCP Source Comments Some departments are not documenting in the electronic medical record. If you do not see the information that you expected, contact Release of Information in the Health Information Management department at [phone] for further assistance in locating additional records.[facility] Allergies Comments Active Allergy Reactions Severity Noted [...] tablet by 9 mouth at bedtime daily. 03/26/2018 Discontinued gabapentin enacarbil 300 Take by [...] recently Kidney stones 08/24/2016 Overview: -- 10/15/16: Radio Television Announcer evaluation non-obstructing stone. CT shows a 4.6 [...] APRN Other (Lantus Tier Exception-DENIED) 03/07/2018 Telephone Endocrinology [facility]abolism [facility] Gen[facility] Calvin Tripp APRN 02/27/2018 Refill [facility]ocrinology [facility]abolism [facility] Genetics Calvin Tripp APRN Medication [...] Taken Vital Sign Reading 03/20/2018 12:54 PM WELFARE CENTRE MANAGER Blood Pressure 145/71 03/20/2018 12:54 PM WELFARE CENTRE MANAGER Pulse 64 - Temperature - - Respiratory Rate - - Oxygen Saturation - - Inhaled Oxygen - Concentration 03/20/2018 12:54 PM WELFARE CENTRE MANAGER Weight 97.9 kg (215 lb 14.4 oz) 03/20/2018 12:54 PM WELFARE CENTRE MANAGER Height 164.6 cm (5' 4.8") 03/20/2018 12:54 PM WELFARE CENTRE MANAGER Body Mass Index 36.15 Plan of Treatment [...] 9.9 (04/01/2017 No Josee, Component 10:37 AM WELFARE CENTRE MANAGER) NAHEED Simpson Results Not on filefrom Last 3 Months Insurance Payer Benefit Subscriber ID Type Phone Address Plan / Group [employer] MEDICARE HUMANA xxxxxxxxx Medicare CHOICE PPO Advance Directives Patient has advance care planning documents on file. For more information, please contact: [facility] [address] [place] [address]
--- OUTSIDE RECORDS SUMMARY | 2018-04-21 06:06 | XMS REPORT | Encounter Summary ---
Author Author [facility] Organization [facility] Address Unknown Phone Unavailable Care Team Providers Care Underwriting Consultant Name Role Phone Belia Reid MD PCP Reason for Visit * Reason Comments Medication Refill Encounter Details Care Team Description Date Type Department Calvin Tripp APRN [address] [place] [address] [phone] Type 2 diabetes mellitus with hyperglycemia, without long- term current use of insulin (HCC) (Primary Dx) 03/18/2018 Refill [facility] Physicians - Internal Medicine [address] [place] [address] [place] [address] Social History Date Tobacco Use Types Packs/Day [...] 9.9 (04/01/2017 No Josee, Component 10:37 AM FITTER MECHANIC) NAHEED Simpson as of this encounter Visit Diagnoses Diagnosis Type 2 diabetes mellitus with hyperglycemia, without long-term current use of insulin (HCC) - Primary in this encounter
--- OUTSIDE RECORDS SUMMARY | 2018-04-21 06:06 | XMS REPORT | Encounter Summary ---
Author Author [facility] Organization [facility] Address Unknown Phone Unavailable Care Team Providers Care Psychology Intern Name Role Phone Belia Reid MD PCP Reason for Visit * Reason Comments Other Lantus Tier Exception-DENIED Encounter Details Care Team Description Date Type Department Calvin Tripp APRN [address] [place] [address] [phone] Other (Lantus Tier Exception-DENIED) 03/07/2018 Telephone [facility] Physicians - Internal Medicine [address] [place] [address] Ortho [place] [address] Social History Date Tobacco Use Types Packs/Day [...] Safia Velazquez RN - 03/07/2018 3:13 PM PARTNERSHIP MARKETING MANAGER Called pt to update her Pt verbalized understanding NERSHIP MARKETING MANAGER * Telephone Encounter - Calvin Tripp APRN - 03/07/2018 3:07 PM PARTNERSHIP MARKETING MANAGER I would suggest that she use NPH generic vials from [facility] for now, 15 units QAM and 10 units at dinner. She can buy these for $25/bottle without a prescription NERSHIP MARKETING MANAGER * Telephone Encounter - Safia Velazquez RN - 03/07/2018 2:58 PM PARTNERSHIP MARKETING MANAGER Received fax from [facility] States Tier Exeption for lantus has been denied This is d/t the fact that there are no lower-cost alternatives Lantus is the lowest priced medication Routing to Tip Tripp APRN to make her aware, and for suggestions? NERSHIP MARKETING MANAGER * Telephone Encounter - Safia Velazquez RN - 03/07/2018 9:18 AM PARTNERSHIP MARKETING MANAGER Pt called and LV States we sent a script in a few weeks ago to mail delivery [employer] for Lantus, but she hasn't received it yet When she called [facility] to check status, they told her she has a copay on it States her Lantus insulin is too expensive for her to afford Copay is going to be $130 for [address] [facility] It would be $90 for one month supply at [facility] She can get one pen at [facility] for $47 She only makes $700/month Pt states [facility] says all the insulin is expensive right now [facility] says this office could try to do Tier Exception [facility] # [phone] Pt has been off the insulin for a while She states her blood sugar this morning was [address] [facility] to discuss Tier Exception Tier exception number [phone] Alternatives to Lantus: Oliverio Tristan Tresiba Lantus is the cheapest option out of those [facility] explained "In order to get tier exception, provider must explain why the lower-cost alternative medication would not be effective" RN explained that there are no other lower-cost alternatives, according to the information they provided Clinical questions were answered They are sending note to clinical team for review, will have response within 24- 48 hrs Reference # [id number] NERSHIP MARKETING MANAGER in this encounter Plan of Treatment Not on fileas of this encounter Goals Goal Patient Associated Recent Progress Patient-Stat Author Goal Type Problems ed? HEMOGLOBIN A1C < 7.5 Result 9.9 (04/01/2017 No Josee, Component 10:37 AM PARTNERSHIP MARKETING MANAGER) NAHEED Simpson as of this encounter Visit Diagnoses Not on filein this encounter
--- OUTSIDE RECORDS SUMMARY | 2018-04-21 06:06 | XMS REPORT | Encounter Summary ---
Author Author [facility] Organization [facility] Address Unknown Phone Unavailable Care Team Providers Care Bulldozer/Loader/Compactor/Scraper Name Role Phone Belia Reid MD PCP Reason for Visit * Reason Comments Medication Refill Encounter Details Care Team Description Date Type Department Calvin Tripp APRN [address] [place] [address] 03/11/2018 Refill [facility] Physicians - Internal Medicine [address] [facility] and [place] [address] Social History Date Tobacco Use [...] < 7.5 Result 9.9 (04/01/2017 Leonela Tripp, Component 10:37 AM BOOKSTORE CLERK) NAHEED Simpson as of this encounter Visit Diagnoses Not on filein this encounter
--- OUTSIDE RECORDS SUMMARY | 2018-04-21 06:06 | XMS REPORT | Encounter Summary ---
Author Author [facility] Organization [facility] Address Unknown Phone Unavailable Care Team Providers Care Major Gifts Officer Name Role Phone Belia Reid MD PCP Reason for Visit * Reason Comments Medication Refill Encounter Details Care Team Description Date Type Department Nathan Crenshaw MD [address] [place] [address] 03/26/2018 Refill [facility] Physicians - Internal Medicine [address] [facility] Ortho [place] [address] Social History Date Tobacco Use [...] 9.9 (04/01/2017 No Josee, Component 10:37 AM LASER BEAM COLOR SCANNER OPERATOR) NAHEED Simpson as of this encounter Visit Diagnoses Not on filein this encounter
--- OUTSIDE RECORDS SUMMARY | 2018-04-21 06:06 | XMS REPORT | Encounter Summary ---
Author Author [facility] Organization [facility] Address Unknown Phone Unavailable Care Team Providers Care Case Picker Name Role Phone Belia Reid MD PCP Reason for Visit * Reason Comments Medication Refill Encounter Details Care Team Description Date Type Department Calvin Tripp APRN [address] [place] [address] [phone] 02/27/2018 Refill [facility] Physicians - Internal Medicine [address] [facility] [place] [address] Social History Date Tobacco Use Types Packs/Day [...] 9.9 (04/01/2017 No Josee, Component 10:37 AM COMPUTER HARDWARE ENGINEER) NAHEED Simpson as of this encounter Visit Diagnoses Not on filein this encounter
--- OUTSIDE RECORDS SUMMARY | 2018-04-21 06:06 | XMS REPORT | Encounter Summary ---
Author Author [facility] Organization [facility] Address Unknown Phone Unavailable Care Team Providers Care Central Supply Nurse Name Role Phone Belia Reid MD PCP Reason for Visit * Reason Comments Medication Problem Lantus refills/[employer] Encounter Details Care Team Description Date Type Department Calvin Tripp APRN [address] [place] [address] Medication Problem (Lantus refills/[employer]) 02/21/2018 Telephone [facility] Physicians - Internal Medicine [facility] [address] [place] [address] Social History Date Tobacco Use [...] Laura Verdin RN - 02/21/2018 3:40 PM ADMINISTRATIVE LIAISON Contacted pt and message given Understanding verbalized Closing encounter NISTRATIVE LIAISON * Telephone Encounter - Calvin Tripp APRN - 02/21/2018 3:22 PM ADMINISTRATIVE LIAISON Thank you for sending the lantus refill. She may increase the metformin if she can tolerate it without GI upset. May add 1 extra tab/day. NISTRATIVE LIAISON * Telephone Encounter - Laura Verdin RN - 02/21/2018 2:06 PM ADMINISTRATIVE LIAISON Pt called, verbalized she had called a week ago and had heard from anyone about her Lantus refill concerns She has been out of Lantus for a week now, and needs the script sent to [facility] pharmacy She is only wanting a 30 day supply sent to [facility] with refills She verbalized she is using Lantus 38 units at this time, not 20 units as previous script indicates She is also asking, if she should increase her Metformin dosing, till she receives her Lantus in 10 days or so? Tip, please advise, thank you. NISTRATIVE LIAISON in this encounter Plan of Treatment Not on fileas of this encounter Goals Goal Patient Associated Recent Progress Patient-Stat Author Goal Type Problems ed? HEMOGLOBIN A1C < 7.5 Result 9.9 (04/01/2017 No Josee, Component 10:37 AM ADMINISTRATIVE LIAISON) NAHEED Simpson as of this encounter Visit Diagnoses Not on filein this encounter
[2018-04-21] MEDS ORDERED: LIDOCAINE PF 1% 5 ML (XYLOCAINE) AMP ONE (06:31)
[2018-04-21] MEDS ORDERED: LACTATED RINGERS 1,000 ML IV PRN (06:59)
[2018-04-21] MEDS ORDERED: SEVOFLURANE (ULTANE) 15 ML INHAL SOLN ONE (06:59)
[2018-04-21] MEDS ORDERED: SUCCINYLCHOLINE INJ 100 MG/5 ML SYR ONE (06:59)
[2018-04-21] MEDS ORDERED: proPOfol 200 MG/20 ML (DIPRIVAN) VIAL IV ONE (06:59)
[2018-04-21] MEDS ORDERED: ROCURONIUM 10 MG/ML 5 ML SYRINGE IV ONE (06:59)
[2018-04-21] MEDS ORDERED: NEOSTIGMINE 1 MG/ML 5 ML SYRINGE ONE (06:59)
[2018-04-21] MEDS ORDERED: LIDOCAINE PF 2% 5 ML (XYLOCAINE) VIAL ONE (06:59)
[2018-04-21] MEDS ORDERED: fentaNYL INJECTION 100 MCG/2 ML AMP ONE ×2 (06:59→08:10)
[2018-04-21] MEDS ORDERED: ONDANSETRON 4 MG/2 ML (SDV) Z0FRAN ONE (06:59)
[2018-04-21] MEDS ORDERED: GLYCOPYRROLATE 0.2 MG/ML (ROBINUL) 2 ML VIAL ONE (06:59)
[2018-04-21] MEDS ORDERED: CLINDAMYCIN 600 MG/50 ML IVPB 50 ML IV ONE ×2 (07:00→07:13)
[2018-04-21] MEDS ORDERED: PROPOFOL INJECTION 50 ML IV ONE (07:01)
[2018-04-21] MEDS ORDERED: fentaNYL INJECTION 100 MCG/2 ML AMP INJ ONE (07:29)
[2018-04-21] MEDS ORDERED: ETOMIDATE IV SOLN 20 MG/10 ML VIAL IV ONE (07:29)
[2018-04-21] MEDS ORDERED: SUCCINYLCHOLINE INJ 100 MG/5 ML SYR INJ ONE (07:29)
[2018-04-21] MEDS ORDERED: MIDAZOLAM 5 MG/5 ML (VERSED) VIAL INJ ONE (07:29)
[2018-04-21] MEDS ORDERED: BACITRACIN 100,000 UNIT/NS 1000 ML POUR BOTTLE IR ONE ×2 (07:45)
[2018-04-21] MEDS ORDERED: HYDROmorphone 2 MG/ML VIAL (DILAUDID) IV ONE (09:15)
[2018-04-21] MEDS ORDERED: ONDANSETRON 4 MG/2 ML (SDV) Z0FRAN IV PRN (09:15)
[2018-04-21] MEDS ORDERED: ONDANSETRON 4 MG/2 ML (SDV) Z0FRAN IVP PRN (09:15)
[2018-04-21] MEDS ORDERED: morphine INJ 10 MG/ML 1ML (SYR OR VIAL) IVP ONE (09:15)
--- NOTE | 2018-04-21 09:28 | OPERATIVE REPORT ---
DATE OF SERVICE: 04/21/2018 SURGEON: Eula Faulkner DO SALESPERSON USED CARS: ROMA Mcgee. This is a medically necessary procedure. Assistance was necessary for retraction of vital neurovascular structures. Without an medical clerical assistant, the procedure would not be possible. PREOPERATIVE DIAGNOSES: 1. Cervical spinal stenosis (foraminal, bony). 2. Cervical radiculopathy. 3. Cervical degenerative disk disease. POSTOPERATIVE DIAGNOSES: 1. Cervical spinal stenosis (foraminal, bony). 2. Cervical radiculopathy. 3. Cervical degenerative disk disease. PROCEDURE PERFORMED: 1. C5-C6 anterior cervical diskectomy and fusion. 2. Application of titanium interbody spacer, C5-C6. 3. Application of anterior instrumentation, C5-C6. 4. Use of human allograft for spine. 5. Use of local bone autograft. COMPLICATIONS: None. SPECIMEN SENT: None. DRAINS PLACED: None. ANESTHESIA: General endotracheal tube anesthesia with local anesthetic. HISTORY OF PRESENT ILLNESS: The patient is a very pleasant 72-year-old female with a history of severe neck and radiating right upper extremity pain. CT myelogram demonstrated bilateral neural foraminal stenosis. She failed conservative measures and did wish to proceed with operative intervention. DESCRIPTION OF PROCEDURE: The patient was identified by name on wrist band in the preoperative holding area. Her operative site was signed, consent was signed. SCDs were placed. Neuromonitoring was hooked up and antibiotics were started. She was taken to the operating room theater and placed under general endotracheal tube anesthesia, placed in the supine position on the operating room table. She was prepped and draped in the usual sterile fashion. Formal timeout was conducted. At this point, an oblique incision was then made over the medial aspect of left sternocleidomastoid. I proceeded with standard anterior cervical approach to the cervical spine verified my level. Placed a self-retaining retractor and Greenwood pin distraction across the C5-C6 disk space. I then performed annulotomy followed by complete diskectomy. I took down the posterior longitudinal ligament and performed bilateral foraminotomies. I sized and chose the appropriate titanium interbody spacer packed with human allograft and local bone autograft and seated it in the midline position. I obtained a [employer] anterior plate, which I placed in the midline position and placed screws through that plate into the body of C5 and into the body of C6. I finally tightened those screws. Final AP and lateral x-ray demonstrated appropriate position of the hardware, maintained hemostasis and closed the wound utilizing 3-0 Vicryl followed by running 3-0 subcuticular stitch. I applied dressings, took the patient in the supine position to the PACU where she awoke without incident. She tolerated the procedure well. The plan at this time is to admit the patient for IV antibiotics, IV pain control and postoperative monitoring. We will have the patient out of bed on postop day #1 with the brace on. She knows to keep her wound clean and dry and change dressings daily. Neuromonitoring was stable throughout this procedure. Instrumentation utilized [employer]. Job ID: [id number] DocumentID: [id number] Dictated Date: 04/21/2018 08:40:36 Skin Care Instructor Date: 04/21/2018 09:27:45 Dictated By: EULA FAULKNER DO
[2018-04-21] MEDS ORDERED: RT-ALBUTEROL/IPRATROPIUM 3 ML (DUONEB) VIAL INH PRN ×2 (09:30→15:00)
[2018-04-21] MEDS ORDERED: LORazepam 0.5 MG (ATIVAN) TABLET PO PRN (09:30)
[2018-04-21] MEDS ORDERED: HYDROmorphone 2 MG/ML VIAL (DILAUDID) ONE (09:33)
--- NOTE | 2018-04-21 09:51 | Diagnostic Imaging Report ---
INDICATION: Fluoroscopy during cervical spine surgery. Fluoroscopy was provided in the OR during ACDF. FINDINGS: Anterior plate and screws transfix the C5-C6 level. 7 seconds of fluoroscopy was utilized. IMPRESSION: Fluoroscopy during ACDF. Dictated by: Dictated on workstation # [id number]
--- NOTE | 2018-04-21 10:15 | NUR ---
TRANSFERRED FROM [facility] PER BED. INC. AREA TO NECK WITH DRY GAUZE AND OP-SITE IN PLACE. MIN. SWELLING NOTED AND SOME PURPLISH BRUISING NOTED TO LEFT SIDE OF INC. AREA. TAKING ICE CHIPS WELL. O2 ON AT 3 L PER MIN PER N/C. HOB UP 90 DEGREES. AT BEDSIDE. DEEP BREATHING ENCOURAGED. PT. STATED SHE HAS TROUBLE WITH STRIDER AND WAS DX A FEW YEARS AGO AND TAKES ATIVAN FOR IT. HARSH BREATHING AT TIMES, WITH LOOSE CONGESTED BARKY NON-PRODUCTIVE COUGH.
[2018-04-21] MEDS: morphine INJ 10 MG/ML 1ML (SYR OR VIAL) IM PRN ×3 (10:41→17:15)
[2018-04-21] MEDS: FAMOTIDINE 20 MG (PEPCID) TABLET PO SCH (11:54)
--- NOTE | 2018-04-21 12:00 | NUR ---
SHONA BRANDON NOTIFIED OF PT. HAVING STRIDOR-LIKE RESP. AND HARSH SNORING. RT CONSULTED WITH MAT PROTOCOL.
--- NOTE | 2018-04-21 12:00 | NUR ---
DRANK 1 CUP OF WARM BROTH. KAHLIL. WELL WHEN TAKEN SLOWLY. CONT. TO HAVE HARSH BARKY COUGH AT TIMES WITH STRIDOR-LIKE RESP. AT TIMES. WHEN SLEEPING PT. MAKES HARSH SNORING NOISES, WHICH STATES SHE DOES A LOT AT HOME.
[2018-04-21] MEDS: oxyCODONE/APAP 5/325MG (PERCOCET 5) TABLET PO PRN (12:24)
[2018-04-21] MEDS: busPIRone 5 MG (BUSPAR) TAB PO SCH (12:24)
[2018-04-21] MEDS ORDERED: RT-ALBUTEROL/IPRATROPIUM 3 ML (DUONEB) VIAL INH NR (12:30)
--- NOTE | 2018-04-21 13:00 | NUR ---
DR. REVELES CALLED AND ORDERED RT TX SCHEDULED. DR. REVELES TALKED WITH RT STAFF ABOUT BRAYDON AND RESP. SITUATION.
--- NOTE | 2018-04-21 13:35 | Anesthesia-General Post-Op ---
General Patient Condition Mental Status/LOC: Same as Preop Cardiovascular: Satisfactory Nausea/Vomiting: Absent Respiratory: Satisfactory Pain: Controlled Complications: Absent Post Op Complications Complications None Follow Up Care/Instructions Patient Instructions None needed. Anesthesia/Patient Condition Patient Condition Patient is doing well, no complaints, stable vital signs, no apparent adverse anesthesia problems. No complications reported per nursing. VIET JONES CRNA Apr 21, 2018 13:35
--- NOTE | 2018-04-21 14:06 | NUR ---
ATIVAN GIVEN PO PER PT. REQUEST TO HELP RESP. STATUS. PT. STATED SHE HAD TO TAKE HIGHER DOSES OF ATIVAN IV ( WHILE SHE WAS IN THE HOSPITAL LAST TIME. ) TO CONTROL THE STRIDOR THAT SHE GETS. DR. REVELES NOTIFIED OF WHAT PT. STATED. PT. CONT. TO COUGH HARSH BARKY NON-PRODUCTIVE COUGH AT TIMES.
[2018-04-21] MEDS: RT-ALBUTEROL/IPRATROPIUM 3 ML (DUONEB) VIAL INH SCH ×2 (14:26→20:51)
[2018-04-21] MEDS ORDERED: RT-epiNEPHrine (RACEMIC) 2.25% 0.5 ML VIAL ONE (14:47)
[2018-04-21] MEDS ORDERED: RT-epiNEPHrine (RACEMIC) 2.25% 0.5 ML VIAL INH STA (14:47)
[2018-04-21] MEDS ORDERED: LORazepam INJ 2 MG/ML (ATIVAN) VIAL IVP NR (17:15)
--- NOTE | 2018-04-21 17:15 | NUR ---
PT. WOKE UP FROM SLEEPING HAVING SEVERE STRIDER WITH BREATHING. C/O OF FEELING SOA. UP TO BSC TO VOID WHICH CAUSED MORE SOA. YQ=012/88 P=158 RESP=24 O2 SAT=88 % WITH O2 AT 3L PER MIN. RT HERE TO APPLY MASK. DR. ROY NOTIFIED OF PT. DIFFUCILTY AND DR. REVELES NOTIFIED. NEW ORDER. SENT TO ICU PER BED WITH RT AT HAND.
--- NOTE | 2018-04-21 17:30 | NUR ---
TIMELINE NOTE: 173-Received pt from 4th floor, pt on 10 L O2 mask, audible stridor, respiratory distress noted. Floor RN, RT, Reji nunn, ED RN, NURSE CLINICAL's in room as well as Dr. Reid. 173-Pt color change to blue and sats dropping, Bag mask ventilation started and code button pressed. 173-oral airway tried at this time and pt biting, unable to place. 173-Dr. Anton, ED physician, in room along with Dr. Reid. 173-Nasal trumpet placed and pt still bag mask ventilation 1736- 2 mg IV ativan given per Dr. Reid 1737- The following meds given per Dr. Anton for intubation. 30 mg IV Etomidate given 173-100 mg succinylcholine IV given 1739-50mg succinylcholine IV given 174-1st attempt at Intubation by Dickson, RT-unsuccessful 1741-100mg fentenyl IV given 1742- 50mg succinylcholine IV given 1742- 5mg versed IV given 174- 2nd attempt at intubation by Dickson RT-unsuccessful 1744-5 mg Cardizem IV given per Dr. Reid. 174-3rd attempt at intubation by Heena anesthesiology successful 8.0 ETT, 24 at the lip. Color change on the CO2 monitor present and bilateral breath sounds auscultated. 1746-OG placed by CHUCK Tidwell RN. 1750-16F broussard placed by reji Ordoñez RN. 1755- Restraints placed by Dr. Reid verbal order at this time.
--- NOTE | 2018-04-21 17:38 | Diagnostic Imaging Report ---
INDICATION: Stridor. Comparison is made with prior examination from 04/06/18. FINDINGS: There is cardiomegaly. Pacemaker overlies the left hemithorax. There is no pleural effusion, pneumothorax or pneumonia. The mediastinum is unremarkable. IMPRESSION: No acute cardiopulmonary abnormality Cardiomegaly. Dictated by: Dictated on workstation # [id number]
[2018-04-21] MEDS ORDERED: DILTIAZEM 25 MG/5 ML INJ (CARDIZEM) VIAL ONE (17:44)
[2018-04-21] MEDS ORDERED: PROPOFOL DRIP (ICU) 100 ML IV ONE (17:53)
--- NOTE | 2018-04-21 18:08 | Anesthesia-Procedure Note ---
Procedures/Interventions Procedure Start/Stop/Diagnosis Date of Procedure: Apr 21, 2018 Start Time: 17:44 Referring Physician: Dr. Saleem Preprocedural Diagnosis: Respiratory Brief History Called to ICU 7 for emergency intubation. Upon arrival to hospital I was notified that Dr. Anton from ED was present but my assistance may be needed. Upon arrival to ICU, Dickson, RT was attempting to intubate with the glidescope; however, he was able to pass ett. I used the glidescope as well and got a grade 1 view of vocal cords and passed the 8.0 ett. x 1 attempt without complications. SaO2 97% during intubation. RT worked to secure the ett while etco2 was confirmed along with bbs and bcr. I reported off to the RN and we be available for further consultation if needed. Stop Time: 17:49 Intubation RSI: No 100% pre-Ox, [id number]: No Intubation Method: orotracheal Videoscope used: Yes (glidescope) Grade View: 1 Mask Ventilation: positive Positive End Tide CO2: Yes Breath Sounds after Intubation: bilateral-equal ETT Securred @ (cm): 22 Intubated with ease: Yes Intubation Complications: no complications Care turned over to: Dr. Anton, Dr. Reid and DISABILITY RATER VIET JONES CRNA Apr 21, 2018 18:08
--- NOTE | 2018-04-21 18:13 | History & Physicial ---
History of Present Illness History of Present Illness Reason for visit/HPI This is a 72 year old female with cervical spinal stenosis who underwent anterior cervical spinal fusion this morning by Dr. Faulkner. Postoperatively she had stridor. She has a history of psychogenic stridor and this worsened as the day went on. She had a dose of racemic epinephrine and then had tachycardia and hypertensive response and had to be transferred to the ICU where she was talking and communicating with us but was unable to protect her airway so she was sedated and intubated by anesthesia. Her blood pressure and tachycardia responded to IV cardizem. She is currently sedated on the ventilator. Date of Admission Apr 21, 2018 at 06:01 Date Seen by a Provider: Apr 21, 2018 Time Seen by a Provider: 18:13 I consulted on this patient on 04/21/18 18:08 Attending Physician Enrike Faulkner DO Admitting Physician Belia Reid DO Consult Allergies and Home Medications Allergies Coded Allergies: milk (Verified Allergy, Intermediate, 10/16/17) Penicillins (Unverified Allergy, Unknown, Pt has received Cefepime & Ceftriaxone in the past w/o issue, 01/18/17) Sulfa (Sulfonamide Antibiotics) (Verified Allergy, Unknown, 06/08/16) aspirin (Verified Adverse Reaction, Mild, ASPIRIN SENSITIVE, 06/08/16) sumatriptan (Verified Adverse Reaction, Mild, PALPITATIONS, 06/08/16) Uncoded Allergies: EGG WHITES (Allergy, Unknown, 10/16/17) Home Medications Buspirone HCl 5 Mg Tablet, 5 MG PO TID, (Reported) Gabapentin 100 Mg Capsule, 100 MG PO HS, (Reported) TAKES ALONG WITH 300MG CAPSULE FOR A TOTAL NIGHTLY DOSE OF 400MG Gabapentin 300 Mg Capsule, 300 MG PO BID, (Reported) Insulin Glargine,Hum.rec.anlog 100 Unit/1 Ml Insuln.pen, 38 UNITS SQ DAILY, ( Reported) Ipratropium/Albuterol Sulfate 3 Ml Ampul.neb, 3 ML NEB Q6H PRN for SHORTNESS OF BREATH, (Reported) Lorazepam 0.5 Mg Tablet, 0.5 MG PO TID PRN for ANXIETY, (Reported) Metformin HCl 500 Mg Tab.er.24h, 1,000 MG PO DAILY, (Reported) TAKE 2 (500MG) TABS Metformin HCl 500 Mg Tab.er.24h, 500 MG PO HS, (Reported) Metoprolol Tartrate 100 Mg Tablet, 100 MG PO BID, (Reported) Omeprazole 40 Mg Capsule.dr, 40 MG PO BID, (Reported) Pramipexole Di-HCl 1 Mg Tablet, 1 MG PO 1700, (Reported) Patient Home Medication List Home Medication List Reviewed: Yes Past Ykeqhjw-Nagwpl-Jdugff Hx Patient Social History Alcohol Use: Denies Use Recreational Drug Use: No 2nd Hand Smoke Exposure: Yes Physical Abuse Screen: No Sexual Abuse: No Recent Foreign Travel: No Contact w/other who traveled: No Recent Hopitalizations: No Recent Infectious Disease Expo: No Immunizations Up To Date Tetanus Booster (TDap): Unknown Pediatric: No Date of Pneumonia Vaccine: Dec 02, 2017 Date of Influenza Vaccine: Jan 24, 2018 Seasonal Allergies Seasonal Allergies: Yes Surgeries Yes (LAP NISSIEN) Abdominal, Appendectomy, Cardiac, Defibrillator, Eye Surgery, Gallbladder, Hysterectomy, Oophorectomy, Orthopedic, Pacemaker, Tonsillectomy Respiratory Yes Currently Using CPAP: No Currently Using BIPAP: No Cardiovascular Yes (SUDDEN CARDIAC ARREST IN 2010 WHEN GETTING PREPPED FOR SURGERY, ) High Cholesterol, Irregular Heartbeat Neurological Yes (PERIPHERAL NEUROPATHY--HANDS AND FEET) Headaches /Migraines, Neuropathy 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 System Hx 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 Disorders: No Sexually Transmitted Disease: No Female 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 Disorders: Denies 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: 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 Genitourinary Yes Kidney Infection, Bladder Infection, Kidney Stones, UTI-Chronic Gastrointestinal Yes (S/P CORNELIUS FUNDOPLICATION; ESOPHAGEAL STRICTURES/DILATIONS; DYSPHAGIA) Gastroesophageal Reflux, Diverticulosis, Hemorrhoids, Polyps, C-Diff, Hiatal Hernia, Ulcer, Irritable Bowel Musculoskeletal Yes Degenerate Disk Disease, Arthritis, Fibromyalgia, Chronic Back Pain, Fractures Endocrine History of Endocrine Disorders: Yes Endocrine Disorders: Diabetes, Insulin dep, Diabetes, Non-Insulin dep HEENT History of HEENT Disorders: Yes HEENT Disorders: Cataract Loss of Vision: Denies Hearing Impairment: Denies Cancer No Psychosocial History of Psychiatric Problem: Yes Behavioral Health Disorders: Anxiety, Depression Integumentary History of Skin or Integumenta: Yes Skin/Integumentary Disorders: Pruritis Blood Transfusions History of Blood Disorders: No Adverse Reaction to a Blood Tr: No Family Medical History Family Hx: Alzheimer's disease 19 FATHER Cardiovascular disease 19 FATHER 19 MOTHER Completed stroke 19 MOTHER Hypertension 19 FATHER 19 MOTHER Myocardial infarction 19 FATHER 19 MOTHER No Family History of: Diabetes mellitus Review of Systems Constitutional: No no symptoms reported, No see HPI, No chills, No diaphoresis , No dizziness, No fever, No malaise, No weakness, No weight gain, No weight loss, No other EENTM: hoarseness Respiratory: stridor Cardiovascular: chest pain Gastrointestinal: No RUQ, No LUQ, No RLQ, No LLQ, No no symptoms reported, No see HPI, No abdominal pain, No constipation, No diarrhea, No dysphagia, No hematemesis, No heartburn, No jaundice, No loss of appetite, No melena, No nausea, No vomiting, No other Genitourinary: No no symptoms reported, No see HPI, No decreased output, No discharge, No dysuria, No frequency, No hematuria, No hesitancy, No incontinence , No nocturia, No pain, No other Musculoskeletal: back pain Skin: No no symptoms reported, No see HPI, No change in color, No change in hair/nails, No dryness, No hx of skin cancer, No lesions, No lumps, No pruritus , No rash, No other Psychiatric/Neurological: Anxiety Physical Exam Vital Signs Vital Signs - First Documented 04/21/18 04/21/18 06:45 10:08 Temp 97.4 Pulse 68 Resp 20 B/P (MAP) 134/74 Pulse Ox 97 O2 Delivery Room Air O2 Flow Rate 3.00 Capillary Refill : Less Than 3 Seconds Height, Weight, BMI Height: 5'5.00" Weight: 220lbs. 0.0oz. 99.159736qu; 36.6 BMI Method:Estimated General Appearance: Severe Distress HEENT: Pharyngeal Erythema (with exudate) Neck: Supple Respiratory: Lungs Clear, Respiratory Distress, Stridor Cardiovascular: Gallop/S4, Tachycardia Gastrointestinal: Normal Bowel Sounds, Non Tender, Soft Rectal: Deferred Back: No CVA Tenderness Extremity: Non Tender, No Calf Tenderness, No Pedal Edema Neurologic/Psychiatric: Alert, Oriented x3 Skin: Warm/Dry Assessment/Plan Assessment and Plan 1. Post-op stridor with unstable airway--sedated and intubated on ventilator 2. 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 Hypertensive Urgency with SVT--responded to IV cardizem, likely in response to racemic epi 4. Cervical Spinal Stenosis with Anterior C5-C6 fusion--check stat CT of soft tissues to rule out hematoma Admission Diagnosis Admission Status: Inpatient Order (span 2 midnights) Reason for Inpatient Admission: Patient intubated BELIA REID DO Apr 21, 2018 18:13
[2018-04-21 18:15] LABS: BASOPHILS # (AUTO) 0.1 10^3/uL (0.0-0.1); BASOPHILS % (AUTO) 0 % (0-10); EOSINOPHILS # (AUTO) 0.2 10^3/uL (0.0-0.3); EOSINOPHILS % (AUTO) 1 % (0-10); HEMATOCRIT 42 % (35-52); HEMOGLOBIN 13.5 G/DL (11.5-16.0); LYMPHOCYTES # (AUTO) 4.1 X 10^3 (1.0-4.0); LYMPHOCYTES % (AUTO) 18 % (12-44); MEAN CORPUSCULAR HEMOGLOBIN 30 PG (25-34); MEAN CORPUSCULAR HGB CONC 32 G/DL (32-36); MEAN CORPUSCULAR VOLUME 94 FL (80-99); MEAN PLATELET VOLUME 9.9 FL (7.4-10.4); MONOCYTES # (AUTO) 1.4 X 10^3 (0.0-1.0); MONOCYTES % (AUTO) 6 % (0-12); NEUTROPHILS # (AUTO) 17.3 X 10^3 (1.8-7.8); NEUTROPHILS % (AUTO) 75 % (42-75); PLATELET COUNT 343 10^3/uL (130-400); RED CELL DISTRIBUTION WIDTH 13.5 % (10.0-14.5)
--- NOTE | 2018-04-21 18:17 | Diagnostic Imaging Report ---
INDICATION: Intubation. COMPARISON: Comparison made with prior examination from 04/21/2018. FINDINGS: Heart size is normal. There is left basilar atelectasis and/or pneumonitis. There is a small left pleural effusion. There are now ET and NG tubes in place, both of which are in satisfactory position. There is no pneumothorax. Mediastinum is unremarkable. Pacemaker overlies the left hemithorax. IMPRESSION: 1. Left basilar atelectasis and/or pneumonitis and a small left pleural effusion. 2. The ET and NG tubes are in satisfactory position. Dictated by: Dictated on workstation # [id number]
[2018-04-21 18:23] LABS: ABG BASE EXCESS -1.8 MMOL/L (-2.5-2.5); ABG OXYGEN SATURATION 98 % (94-100); ABG PCO2 59 MMHG (35-45); ABG PO2 107 MMHG (79-93); ABG TCO2 25.8 MMOL/L (21.0-31.0)
[2018-04-21 18:25] LABS: ALLENS TEST YES-POS; INSPIRED O2 100%; PATIENT TEMP 101.4; VENTILATOR YES
[2018-04-21 18:26] LABS: ABG PH 7.25 (7.37-7.43)
[2018-04-21 18:28] LABS: ALANINE AMINOTRANSFERASE 30 U/L (0-55); ALBUMIN 3.8 GM/DL (3.2-4.5); ALKALINE PHOSPHATASE 94 U/L (40-136); BILIRUBIN,TOTAL 0.6 MG/DL (0.1-1.0); BUN/CREATININE RATIO 10; CALCIUM 8.9 MG/DL (8.5-10.1); CARBON DIOXIDE 21 MMOL/L (21-32); CHLORIDE 100 MMOL/L (98-107); CREATINE KINASE 177 U/L (29-168); GFR ESTIMATED > 60; GLUCOSE 241 MG/DL (70-105); POTASSIUM 4.5 MMOL/L (3.6-5.0); SODIUM 135 MMOL/L (135-145); TOTAL PROTEIN 6.5 GM/DL (6.4-8.2)
[2018-04-21] MEDS ORDERED: NS 100 ML (IVPB) BAG IV ONE ×2 (18:45→19:45)
[2018-04-21] MEDS ORDERED: IOHEXOL 350 MG/ML 100 ML (OMNIPAQUE 350) VIAL IV ONE ×2 (18:45→19:45)
[2018-04-21] MEDS ORDERED: RECEIVED CONTRAST 20 ML VIAL IV SCH (18:45)
[2018-04-21 18:52] LABS: BAND NEUTROPHILS 1 %; BASOPHILS % (MANUAL) 0 %; EOSINOPHILS % (MANUAL) 1 %; LYMPHOCYTES % (MANUAL) 20 %; MONOCYTES % (MANUAL) 7 %; NEUTROPHILS % (MANUAL) 71 %; RBC MORPH NORMAL
--- NOTE | 2018-04-21 19:16 | Diagnostic Imaging Report ---
PROCEDURE: CT neck soft tissue with contrast. TECHNIQUE: Multiple contiguous axial images were obtained through the neck after the administration of contrast. INDICATION: Stridor after cervical spine surgery. FINDINGS: There is mucosal thickening in the sphenoid sinus. Mild mucosal thickening in the right maxillary sinus. The visualized intracranial structures are unremarkable. There is an ET and NG tube in place. There are postsurgical changes of anterior cervical fusion at C5-6 with plate and screws. The prevertebral soft tissues are grossly within normal limits. Lung apices are clear. The parotid, submandibular and thyroid glands are grossly normal in appearance. There is no pathologically enlarged adenopathy or mass in the neck. There is no hematoma. There are some patchy areas of subcutaneous air, however, this is presumably postsurgical in nature. IMPRESSION: Patchy areas of subcutaneous air presumably related to recent cervical spine surgery. Prevertebral soft tissues are grossly within normal limits. However, the evaluation is limited due to the presence of the ET and NG tube. There has been a C5-6 anterior cervical disc fusion. Mild sinus disease as described. Dictated by: Dictated on workstation # [id number]
--- NOTE | 2018-04-21 19:39 | Progress Note (SOAP) ---
Subjective Date Seen by a Provider: Apr 21, 2018 Time Seen by a Provider: 19:33 Subjective/Events-last exam code called for patient after stridor and respiratory distress. patient intubated and stable. Objective Exam Vital Signs Date Time Temp Pulse Resp B/P (MAP) Pulse Ox O2 Delivery O2 Flow Rate FiO2 04/21/18 18:19 108 04/21/18 16:00 98.8 102 22 116/62 (80) 94 Nasal Cannula 3.00 04/21/18 14:53 95 Nasal Cannula 3.00 04/21/18 14:26 91 Nasal Cannula 3.00 04/21/18 12:05 97.8 87 20 134/62 (86) 95 Nasal Cannula 3.00 04/21/18 10:08 97.4 81 20 126/60 (82) 98 Nasal Cannula 3.00 04/21/18 06:45 97.4 68 20 134/74 97 Room Air 04/21/18 06:45 Room Air Capillary Refill : Less Than 3 Seconds General Appearance: Mild Distress Other comments patient intubated and sedated vss dressings intact over left cervical incision, sans saturation no tracheal deviation neck is supple no evidence of underlying hematoma however soft tissue could cover signs ct neck obtained, trachea appears midline no overt hematoma patient to remain in icu with ET tube in place this evening Results Lab Laboratory Tests 04/21/18 06:49: Glucometer 176H 04/21/18 09:08: Glucometer 145H 04/21/18 12:12: Glucometer 152H 04/21/18 17:39: White Blood Count 23.0H, Red Blood Count 4.49, Hemoglobin 13.5, Hematocrit 42, Mean Corpuscular Volume 94, Mean Corpuscular Hemoglobin 30, Mean Corpuscular Hemoglobin Concent 32, Red Cell Distribution Width 13.5, Platelet Count 343, Mean Platelet Volume 9.9, Neutrophils (%) (Auto) 75, Lymphocytes (%) (Auto) 18, Monocytes (%) (Auto) 6, Eosinophils (%) (Auto) 1, Basophils (%) (Auto) 0, Neutrophils # (Auto) 17.3H, Lymphocytes # (Auto) 4.1H, Monocytes # (Auto) 1.4H, Eosinophils # (Auto) 0.2, Basophils # (Auto) 0.1, Neutrophils % (Manual) 71, Lymphocytes % (Manual) 20, Monocytes % (Manual) 7, Eosinophils % (Manual) 1, Basophils % (Manual) 0, Band Neutrophils 1, Blood Morphology Comment NORMAL, Sodium Level 135, Potassium Level 4.5, Chloride Level 100, Carbon Dioxide Level 21, Anion Gap 14, Blood Urea Nitrogen 8, Creatinine 0.80, Estimat Glomerular Filtration Rate > 60, BUN/Creatinine Ratio 10, Glucose Level 241H, Calcium Level 8.9, Corrected Calcium 9.1, Total Bilirubin 0.6, Aspartate Amino Transf ( AST/SGOT) 31, Alanine Aminotransferase (ALT/SGPT) 30, Alkaline Phosphatase 94, Total Creatine Kinase 177H, Troponin I < 0.028, Total Protein 6.5, Albumin 3.8 04/21/18 18:05: Blood Gas Puncture Site RR, Blood Gas Patient Temperature 101.4, Arterial Blood pH 7.25*L, Arterial Blood Partial Pressure CO2 59H, Arterial Blood Partial Pressure O2 107H, Arterial Blood HCO3 24, Arterial Blood Total CO2 25.8, Arterial Blood Oxygen Saturation 98, Arterial Blood Base Excess -1.8, Manjit Test YES-POS, Blood Gas Ventilator Setting YES, Blood Gas Inspired Oxygen 100% Assessment/Plan Assessment/Plan Assess & Plan/Chief Complaint s/p acdf laryngospasm intubated continue plan per medical plan BRADY HAUSER Apr 21, 2018 19:39
[2018-04-21] MEDS ORDERED: NS IV 1000 ML 1,000 ML ONE (20:48)
[2018-04-21] MEDS: RT-BUDESONIDE NEBS 0.5 MG/2ML (PULMICORT) AMP INH SCH (20:51)
[2018-04-21] MEDS: meTOprolol TARTRATE 50 MG (LOPRESSOR) TAB PO SCH (21:00)
[2018-04-21] MEDS: fentaNYL INJECTION 1,250 MCG in NS (IVPB) 250 ML IV SCH (21:00)
[2018-04-21] MEDS ORDERED: NS IV 1000 ML 1,000 ML IV ONE (21:30)
[2018-04-21] MEDS: LACTATED RINGERS 1,000 ML IV SCH (21:30)
[2018-04-22] VITALS (34 sets, daily range): BP systolic 91–139; BP diastolic 51–85
[2018-04-22] MEDS ORDERED: LORazepam INJ 2 MG/ML (ATIVAN) VIAL IVP SCH
[2018-04-22] MEDS: busPIRone 5 MG (BUSPAR) TAB PO SCH ×4 (00:48→20:45)
[2018-04-22] MEDS: FAMOTIDINE 20 MG (PEPCID) TABLET PO SCH ×3 (00:48→20:45)
[2018-04-22] MEDS: GABAPENTIN 100 MG (NEURONTIN) CAP PO SCH ×2 (00:48→20:45)
[2018-04-22] MEDS: GABAPENTIN 300 MG (NEURONTIN) CAP PO SCH ×3 (00:48→20:45)
[2018-04-22] MEDS: SENNOSIDES 8.6 MG (SENOKOT) TAB PO SCH ×3 (00:48→20:45)
[2018-04-22] MEDS: morphine INJ 10 MG/ML 1ML (SYR OR VIAL) IM PRN ×6 (00:54→20:46)
[2018-04-22] MEDS: PRAMIPEXOLE 0.5 MG TAB (MIRAPEX) PO SCH ×2 (00:54→16:30)
[2018-04-22] MEDS: RT-ALBUTEROL/IPRATROPIUM 3 ML (DUONEB) VIAL INH SCH ×6 (02:07→22:07)
[2018-04-22] MEDS: PROPOFOL DRIP (ICU) 100 ML IV SCH ×4 (03:43→17:56)
[2018-04-22 04:03] LABS: BASOPHILS # (AUTO) 0.1 10^3/uL (0.0-0.1); BASOPHILS % (AUTO) 0 % (0-10); EOSINOPHILS % (AUTO) 0 % (0-10); HEMATOCRIT 40 % (35-52); HEMOGLOBIN 12.5 G/DL (11.5-16.0); LYMPHOCYTES % (AUTO) 11 % (12-44); MEAN CORPUSCULAR HEMOGLOBIN 31 PG (25-34); MEAN CORPUSCULAR HGB CONC 32 G/DL (32-36); MEAN CORPUSCULAR VOLUME 98 FL (80-99); MEAN PLATELET VOLUME 9.9 FL (7.4-10.4); MONOCYTES # (AUTO) 1.1 X 10^3 (0.0-1.0); MONOCYTES % (AUTO) 6 % (0-12); NEUTROPHILS # (AUTO) 14.8 X 10^3 (1.8-7.8); NEUTROPHILS % (AUTO) 82 % (42-75); PLATELET COUNT 186 10^3/uL (130-400); RED CELL DISTRIBUTION WIDTH 13.7 % (10.0-14.5); WHITE BLOOD COUNT 17.9 10^3/uL (4.3-11.0)
[2018-04-22 04:30] LABS: BUN/CREATININE RATIO 8; CALCIUM 8.3 MG/DL (8.5-10.1); CARBON DIOXIDE 20 MMOL/L (21-32); CHLORIDE 100 MMOL/L (98-107); CREATININE SERUM 0.77 MG/DL (0.60-1.30); GFR ESTIMATED > 60; GLUCOSE 226 MG/DL (70-105); MAGNESIUM 1.2 MG/DL (1.8-2.4); PHOSPHORUS 3.1 MG/DL (2.3-4.7); POTASSIUM 4.1 MMOL/L (3.6-5.0); SODIUM 134 MMOL/L (135-145)
--- NOTE | 2018-04-22 04:37 | Pulmonary Consultation ---
History of Present Illness History of Present Illness Date of Consultation 04/22/18 04:32 Time Seen by Provider: 04:32 Date of Admission History of Present Illness 72yo with hx of cervical spinal stenosis and is s/p cervical spine fusion. SHe was on 4th floor then transferred up to ICU secondary to acute respiratory distress. Pt was intubated per anesthesia. Dr. Reid called and consulted me for respiratory and vent management. She's had previous episodes but not this bad. Unable to obtain ROS currently. Allergies and Home Medications Allergies Coded Allergies: oxycodone (Verified Allergy, Mild, 05/04/18) HALLUCINATIONS Penicillins (Unverified Allergy, Unknown, Pt has received Cefepime & Ceftriaxone in the past w/o issue, 01/18/17) Sulfa (Sulfonamide Antibiotics) (Verified Allergy, Unknown, 06/08/16) aspirin (Verified Adverse Reaction, Mild, ASPIRIN SENSITIVE, 06/08/16) sumatriptan (Verified Adverse Reaction, Mild, PALPITATIONS, 06/08/16) Home Medications Acetaminophen 650 Mg Tablet.er, 650 MG PO Q4H Prescribed by: NANNETTE REID on 05/01/18 1042 Apixaban 5 Mg Tablet, 5 MG PO Q12H Prescribed by: YASMANI HAMILTON on 05/01/18 0906 Buspirone HCl 5 Mg Tablet, 5 MG PO TID, (Reported) Diltiazem HCl 240 Mg Cap.er.24h, 240 MG PO DAILY Prescribed by: YASMANI HAMILTON on 05/01/18 0906 Doxepin HCl 10 Mg Capsule, 20 MG PO HS Prescribed by: NANNETTE REID on 05/13/18 1711 Hydrocodone Bit/Acetaminophen 1 Tab Tab, 1 TAB PO Q4H PRN for PAIN-MODERATE Prescribed by: NANNETTE REID on 05/01/18 1041 Insulin Determir 1,000 Units/10 Ml Soln, 50 UNIT SQ DAILY Prescribed by: NANNETTE REID on 05/01/18 1041 Ipratropium/Albuterol Sulfate 3 Ml Ampul.neb, 3 ML NEB Q6H PRN for SHORTNESS OF BREATH, (Reported) Lorazepam 0.5 Mg Tablet, 0.5 MG PO TID PRN for ANXIETY Prescribed by: NANNETTE REID on 05/01/18 1041 Magnesium Oxide 400 Mg Tablet, 400 MG PO BIDPC Prescribed by: YASMANI HAMILTON on 05/01/18 0906 Melatonin 3 Mg Tablet, 6 MG PO HS Prescribed by: NANNETTE REID on 05/01/18 1041 Metformin HCl 500 Mg Tab.er.24h, 1,000 MG PO BID TAKE 2 (500MG) TABS Prescribed by: NANNETTE REID on 05/01/18 1041 Metoprolol Tartrate 100 Mg Tablet, 100 MG PO BID, (Reported) Miconazole Nitrate 90 Gm Powder, 0 GM TOP BID to groin twice a day for 2 weeks Prescribed by: NANNETTE REID on 05/13/18 1709 Omeprazole 40 Mg Capsule.dr, 40 MG PO BID, (Reported) Pramipexole Di-HCl 1 Mg Tablet, 1 MG PO 1700, (Reported) Sennosides 8.6 Mg Tablet, 8.6 MG PO BID Prescribed by: NANNETTE REID on 05/01/18 1041 Past Expnncx-Bifxos-Nemvrb Hx Patient Social History Alcohol Use: Denies Use Recreational Drug Use: No 2nd Hand Smoke Exposure: Yes Recent Foreign Travel: No Contact w/Someone Who Travel: No Recent Infectious Disease Expo: No Recent Hopitalizations: No Immunizations Up To Date Tetanus Booster (TDap): Unknown PED Vaccines UTD: No Date of Pneumonia Vaccine: Dec 02, 2017 Date of Influenza Vaccine: Jan 24, 2018 Seasonal Allergies Seasonal Allergies: Yes Past Medical History Surgeries: Yes (LAP NISSIEN) Abdominal, Appendectomy, Cardiac, Defibrillator, Eye Surgery, Gallbladder, Hysterectomy, Oophorectomy, Orthopedic, Pacemaker, Tonsillectomy Respiratory: Yes Asthma, Pneumonia, Chronic Bronchitis, COPD Currently Using CPAP: No Currently Using BIPAP: No Cardiac: Yes (SUDDEN CARDIAC ARREST IN 2010 WHEN GETTING PREPPED FOR SURGERY, ) High Cholesterol, Irregular Heartbeat Neurological: Yes (PERIPHERAL NEUROPATHY--HANDS AND FEET) Headaches /Migraines, Neuropathy 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 Disorders: No Female 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 Disorders: Denies 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 Sexually Transmitted Disease: No Genitourinary: Yes Kidney Infection, Bladder Infection, Kidney Stones, UTI-Chronic Gastrointestinal: Yes (S/P CORNELIUS FUNDOPLICATION; ESOPHAGEAL STRICTURES/ DILATIONS; DYSPHAGIA) Gastroesophageal Reflux, Diverticulosis, Hemorrhoids, Polyps, C-Diff, Hiatal Hernia, Ulcer, Irritable Bowel Musculoskeletal: Yes Degenerate Disk Disease, Arthritis, Fibromyalgia, Chronic Back Pain, Fractures Endocrine: Yes Diabetes, Insulin dep, Diabetes, Non-Insulin dep HEENT: Yes Cataract Loss of Vision: Denies Hearing Impairment: Denies Cancer: No Psychosocial: Yes Anxiety, Depression Integumentary: Yes Pruritis Blood Disorders: No Adverse Reaction/Blood Tranf: No Family Medical History Alzheimer's disease 19 FATHER Cardiovascular disease 19 FATHER 19 MOTHER Completed stroke 19 MOTHER Hypertension 19 FATHER 19 MOTHER Myocardial infarction 19 FATHER 19 MOTHER No Family History of: Diabetes mellitus Review of Systems Time Seen by Provider: 14:59 Sepsis Event Evaluation Height, Weight, BMI Height: 5'5.00" Weight: 220lbs. 0.0oz. 99.537102xu; 36.6 BMI Method:Estimated Exam Exam Vital Signs Date Time Temp Pulse Resp B/P (MAP) Pulse Ox O2 Delivery O2 Flow Rate FiO2 04/22/18 04:13 93 18 98 40 04/22/18 04:00 96 18 107/57 (74) 98 Mechanical Ventilator 50.00 04/22/18 03:43 96 04/22/18 03:00 101 19 104/63 (77) 98 Mechanical Ventilator 50.00 04/22/18 02:08 99 18 100 50 04/22/18 02:00 98 18 104/54 (71) 99 Mechanical Ventilator 50.00 04/22/18 01:00 115 17 110/82 (91) 99 Mechanical Ventilator 50.00 04/22/18 01:00 115 04/22/18 00:04 Mechanical Ventilator 50.00 04/22/18 00:01 96 18 100 70 04/22/18 00:00 98 17 104/64 (77) 100 Mechanical Ventilator 70.00 04/22/18 00:00 99.7 04/21/18 23:00 102 18 107/65 (79) 100 Mechanical Ventilator 70.00 04/21/18 22:34 103 18 100 70 04/21/18 22:00 107 17 125/75 (92) 100 Mechanical Ventilator 70.00 04/21/18 21:30 115 19 100/47 (64) 100 Mechanical Ventilator 70.00 04/21/18 21:00 107 17 143/83 (103) 100 Mechanical Ventilator 70.00 04/21/18 20:30 101 17 97/63 (74) 99 Mechanical Ventilator 70.00 04/21/18 20:00 104 18 101/65 (77) 97 Mechanical Ventilator 70.00 04/21/18 19:45 105 17 88/72 (77) 95 Mechanical Ventilator 70.00 04/21/18 19:30 105 16 103/43 (63) 99 Mechanical Ventilator 70.00 04/21/18 19:15 99.1 106 17 145/63 (90) 100 Mechanical Ventilator 70.00 04/21/18 19:14 107 04/21/18 18:19 108 04/21/18 17:50 115 19 100 70 04/21/18 16:00 98.8 102 22 116/62 (80) 94 Nasal Cannula 3.00 04/21/18 14:53 95 Nasal Cannula 3.00 04/21/18 14:26 91 Nasal Cannula 3.00 04/21/18 12:05 97.8 87 20 134/62 (86) 95 Nasal Cannula 3.00 04/21/18 12:00 98 Nasal Cannula 3.00 04/21/18 10:08 97.4 81 20 126/60 (82) 98 Nasal Cannula 3.00 04/21/18 06:45 97.4 68 20 134/74 97 Room Air 04/21/18 06:45 Room Air I & O 04/22/18 07:00 Intake Total 390 ml Output Total 300 ml Balance 90 ml Height & Weight Height: 5'5.00" Weight: 220lbs. 0.0oz. 99.527095nr; 36.6 BMI Method:Estimated General Appearance: Obese, Other (pt is intubated and sedated currently ) HEENT: Other (ET tube in place ) Neck: Supple Respiratory: Lungs Clear Cardiovascular: Gallop/S4, Tachycardia Capillary Refill: Less Than 3 Seconds Gastrointestinal: non tender, soft Extremity: Non Tender, No Calf Tenderness, No Pedal Edema Neurologic/Psychiatric: Alert, Oriented x3 Skin: Warm/Dry Lymphatic: No Adenopathy Results Lab Laboratory Tests 04/21/18 17:39 04/22/18 03:55 Assessment/Plan Assessment/Plan Acute respiratory failure secondary to probable vocal cord spasms r/o recurrent laryngeal nerve damage - Will leave on vent for now --ABG pending -Start solumedrol 40 IV Q6 -Diprivan/fentanyl S/p C5-C6 fusion 04/22 -CT Neck reviewed no hematoma Hypotension with sinus tachycardia -LR at 75 cc/hr -Pt received a 1 liter bolus last night -Will repeat Hypomagnesium -replace Leukocytosis - prost surgical Hx of laryngal spasms HTN urgency -Monitor HX of cardiac arrest 2010 Last EF 50-55% CAD Obesity THERESA COOK DO Apr 22, 2018 04:37
[2018-04-22 04:57] LABS: ABG BASE EXCESS 2.7 MMOL/L (-2.5-2.5); ABG OXYGEN SATURATION 98 % (94-100); ABG PCO2 41 MMHG (35-45); ABG PH 7.43 (7.37-7.43); ABG PO2 81 MMHG (79-93); ABG TCO2 27.9 MMOL/L (21.0-31.0)
[2018-04-22 04:58] LABS: ALLENS TEST POSITIVE; INSPIRED O2 40%; VENTILATOR YES
[2018-04-22] MEDS ORDERED: LACTATED RINGERS 1,000 ML IV ONE (05:30)
[2018-04-22] MEDS: MAGNESIUM 1 GM/100 ML IVPB 100 ML IV SCH ×4 (06:51→11:07)
[2018-04-22] MEDS: inSUlin ASPART (NovoLOG) 1 UNIT/0.01 ML (CHARGE PER UNIT) SQ SCH ×4 (06:52→23:40)
[2018-04-22] MEDS: methylPREDNISolone 40 MG/ML (Solu-MEDROL) VIAL IV SCH ×4 (06:53→23:40)
[2018-04-22] MEDS ORDERED: RT-BUDESONIDE NEBS 0.5 MG/2ML (PULMICORT) AMP INH SCH (08:00)
[2018-04-22] MEDS: MULTIVIT W/MINERALS TAB (THERAGRAN M) PO SCH (08:49)
[2018-04-22] MEDS: meTOprolol TARTRATE 50 MG (LOPRESSOR) TAB PO SCH ×2 (08:50→22:19)
[2018-04-22] MEDS: inSUlin DETERMIR 1 UNIT/0.01 ML (LEVEMIR) CHARGE PER UNIT SQ SCH (08:51)
--- NOTE | 2018-04-22 08:55 | Diagnostic Imaging Report ---
INDICATION: Ventilator management. FINDINGS: ET tube in stable position. OG catheter in the stomach. Pacemaker device unremarkable. There is infiltrate in the medial left lower lobe partially obscuring from visualization. The left diaphragm is unchanged. IMPRESSION: Left lower lobe consolidation unchanged. Dictated by: Dictated on workstation # [id number]
[2018-04-22] MEDS: RT-BUDESONIDE NEBS 0.5 MG/2ML (PULMICORT) AMP INH SCH ×2 (08:56→20:00)
--- NOTE | 2018-04-22 10:51 | OPERATIVE REPORT ---
DATE OF SERVICE: 04/21/2018 SURGEON: Eula Faulkner DO. CHIEF OPERATING OFFICER: ROMA Mcgee. This is a medically necessary procedure. Assistance was necessary for retraction of vital neurovascular structures. Without an special events assistant, the procedure would not be possible. PREOPERATIVE DIAGNOSES: 1. Cervical degenerative disk disease at C5-6. 2. Cervical spinal stenosis (central, foraminal, bony). 3. Cervical radiculopathy. POSTOPERATIVE DIAGNOSES: 1. Cervical degenerative disk disease at C5-6. 2. Cervical spinal stenosis (central, foraminal, bony). 3. Cervical radiculopathy. PROCEDURE PERFORMED: 1. A C5-6 anterior cervical diskectomy and fusion. 2. Application of titanium interbody cage C5-6. 3. Application of anterior instrumentation C5-6. 4. Use of human Allograft for spine. 5. Use of local bone autograft. COMPLICATIONS: None. SPECIMEN SENT: None. DRAINS PLACED: None. ANESTHESIA: General endotracheal tube anesthesia with local anesthetic. HISTORY OF PRESENT ILLNESS: The patient is a very pleasant 72-year-old female, who presented to me with severe headaches, neck pain and radiating right upper extremity pain. Advanced imaging demonstrated severe degenerative disk disease with stenosis at C5-6. She had failed all conservative measures and wished to proceed with the operative intervention. She understood the risks and benefits. DESCRIPTION OF PROCEDURE: The patient was identified by name on wrist band in the preoperative holding area and the operative site was signed and consent was signed. SCDs were placed. Neuromonitoring was hooked up and she was taken to the operating room theater where she was placed under general endotracheal tube anesthesia and then transferred to the operating table in the supine position. Traction was placed across her shoulder. She was prepped and draped in the usual sterile fashion. Formal time out was conducted. An incision was then made over the medial aspect of the left sternocleidomastoid. I proceeded with standard anterior cervical approach and placed a self-retaining retractor and I placed Ovid pins into the body of C5 and the body of C6. I placed distraction across the disk space. At this point, I performed an annulotomy followed by complete removal of the disk material. I did take down the posterior longitudinal ligament and performed bilateral foraminotomies. When I was finished, there was no further neurologic compression. I then sized and chose the appropriate titanium interbody cage and packed it with human allograft and local bone autograft and I seated it into the midline position. I then obtained a [employer] plate, which I placed over the midline position and screwed it into the bodies of C5 and C6. I maintained hemostasis, irrigated the wound, obtained final AP and lateral x-rays and I closed the wound utilizing 3-0 Vicryl followed by running 3-0 subcuticular stitch. I applied dressings and took the patient in supine position to the PACU where she awoke without incident. She tolerated the procedure well. The plan at this time is to admit the patient overnight for IV antibiotics, IV pain control and postop monitoring. We will reevaluate her and get her out of bed on postop day #1 and discontinue her Hopper per my protocol. Job ID: [id number] DocumentID: [id number] Dictated Date: 04/22/2018 07:54:55 Edge Runner Date: 04/22/2018 10:51:16 Dictated By: EULA FAULKNER DO
--- NOTE | 2018-04-22 11:04 | Occ Therapy Progress Note ---
Therapy Progress Note Order received for OT eval and treat. Chart review completed. Pt currently intubated and sedated. Hold therapy at this time. Will follow and initiate therapy when pt able to tolerate and participate. GEORGE ECHOLS OT Apr 22, 2018 11:04
[2018-04-22] MEDS: LACTATED RINGERS 1,000 ML IV SCH ×2 (11:05→22:08)
--- NOTE | 2018-04-22 11:09 | Physical Therapy Progress Note ---
Therapy Progress Note 9:55 Pt is on mechanical ventilator. Pt will assess pt once medically stable and can participate with physical therapy services. IRENE NEGRO PT Apr 22, 2018 11:09
--- NOTE | 2018-04-22 11:10 | NUR ---
Pastoral care visit, pt intubated-no family at bedside.
--- NOTE | 2018-04-22 12:24 | Progress Note (SOAP) ---
Subjective Date Seen by a Provider: Apr 22, 2018 Time Seen by a Provider: 12:22 Subjective/Events-last exam EDWIN. Patient is sedated and intubated but responds to voice. She is in wrist restraints. Objective Exam Vital Signs Date Time Temp Pulse Resp B/P (MAP) Pulse Ox O2 Delivery O2 Flow Rate FiO2 04/22/18 10:00 87 18 113/69 (84) 94 Mechanical Ventilator 40.00 04/22/18 09:35 95 20 95 35 04/22/18 09:00 106 17 122/70 (87) 100 Mechanical Ventilator 40.00 04/22/18 08:00 85 17 120/71 (87) 100 Mechanical Ventilator 40.00 04/22/18 08:00 98 Mechanical Ventilator 35 04/22/18 07:00 91 04/22/18 07:00 90 18 112/61 (78) 97 Mechanical Ventilator 40.00 04/22/18 06:44 87 18 97 35 04/22/18 06:00 87 17 95/62 (73) 98 Mechanical Ventilator 40.00 04/22/18 05:00 90 18 100/62 (75) 97 Mechanical Ventilator 40.00 04/22/18 04:13 93 18 98 40 04/22/18 04:00 96 18 107/57 (74) 98 Mechanical Ventilator 40.00 04/22/18 04:00 98 Mechanical Ventilator 40 04/22/18 04:00 99.5 04/22/18 03:43 96 04/22/18 03:00 101 19 104/63 (77) 98 Mechanical Ventilator 50.00 04/22/18 02:08 99 18 100 50 04/22/18 02:00 98 18 104/54 (71) 99 Mechanical Ventilator 50.00 04/22/18 01:00 115 17 110/82 (91) 99 Mechanical Ventilator 50.00 04/22/18 01:00 115 04/22/18 00:04 Mechanical Ventilator 50.00 04/22/18 00:01 96 18 100 70 04/22/18 00:00 98 17 104/64 (77) 100 Mechanical Ventilator 70.00 04/22/18 00:00 99.7 04/22/18 00:00 98 Mechanical Ventilator 50 04/21/18 23:00 102 18 107/65 (79) 100 Mechanical Ventilator 70.00 04/21/18 22:34 103 18 100 70 04/21/18 22:00 107 17 125/75 (92) 100 Mechanical Ventilator 70.00 04/21/18 21:30 115 19 100/47 (64) 100 Mechanical Ventilator 70.00 04/21/18 21:00 107 17 143/83 (103) 100 Mechanical Ventilator 70.00 04/21/18 20:30 101 17 97/63 (74) 99 Mechanical Ventilator 70.00 04/21/18 20:00 98 Mechanical Ventilator 70 04/21/18 20:00 104 18 101/65 (77) 97 Mechanical Ventilator 70.00 04/21/18 19:45 105 17 88/72 (77) 95 Mechanical Ventilator 70.00 04/21/18 19:30 105 16 103/43 (63) 99 Mechanical Ventilator 70.00 04/21/18 19:15 99.1 106 17 145/63 (90) 100 Mechanical Ventilator 70.00 04/21/18 19:14 107 04/21/18 18:19 108 04/21/18 17:50 115 19 100 70 04/21/18 16:00 98.8 102 22 116/62 (80) 94 Nasal Cannula 3.00 04/21/18 14:53 95 Nasal Cannula 3.00 04/21/18 14:26 91 Nasal Cannula 3.00 I & O 04/22/18 07:00 Intake Total 1390 ml Output Total 1350 ml Balance 40 ml Capillary Refill : Less Than 3 SecondsLess Than 3 Seconds General Appearance: No Apparent Distress Neurologic/Psychiatric: Other (Cervical wound CDI, ) Results Lab Laboratory Tests 04/21/18 17:39: White Blood Count 23.0H, Red Blood Count 4.49, Hemoglobin 13.5, Hematocrit 42, Mean Corpuscular Volume 94, Mean Corpuscular Hemoglobin 30, Mean Corpuscular Hemoglobin Concent 32, Red Cell Distribution Width 13.5, Platelet Count 343, Mean Platelet Volume 9.9, Neutrophils (%) (Auto) 75, Lymphocytes (%) (Auto) 18, Monocytes (%) (Auto) 6, Eosinophils (%) (Auto) 1, Basophils (%) (Auto) 0, Neutrophils # (Auto) 17.3H, Lymphocytes # (Auto) 4.1H, Monocytes # (Auto) 1.4H, Eosinophils # (Auto) 0.2, Basophils # (Auto) 0.1, Neutrophils % (Manual) 71, Lymphocytes % (Manual) 20, Monocytes % (Manual) 7, Eosinophils % (Manual) 1, Basophils % (Manual) 0, Band Neutrophils 1, Blood Morphology Comment NORMAL, Sodium Level 135, Potassium Level 4.5, Chloride Level 100, Carbon Dioxide Level 21, Anion Gap 14, Blood Urea Nitrogen 8, Creatinine 0.80, Estimat Glomerular Filtration Rate > 60, BUN/Creatinine Ratio 10, Glucose Level 241H, Calcium Level 8.9, Corrected Calcium 9.1, Total Bilirubin 0.6, Aspartate Amino Transf ( AST/SGOT) 31, Alanine Aminotransferase (ALT/SGPT) 30, Alkaline Phosphatase 94, Total Creatine Kinase 177H, Troponin I < 0.028, Total Protein 6.5, Albumin 3.8 04/21/18 18:05: Blood Gas Puncture Site RR, Blood Gas Patient Temperature 101.4, Arterial Blood pH 7.25*L, Arterial Blood Partial Pressure CO2 59H, Arterial Blood Partial Pressure O2 107H, Arterial Blood HCO3 24, Arterial Blood Total CO2 25.8, Arterial Blood Oxygen Saturation 98, Arterial Blood Base Excess -1.8, Manjit Test YES-POS, Blood Gas Ventilator Setting YES, Blood Gas Inspired Oxygen 100% 04/22/18 01:47: Glucometer 203H 04/22/18 03:55: White Blood Count 17.9H, Red Blood Count 4.06L, Hemoglobin 12.5, Hematocrit 40, Mean Corpuscular Volume 98, Mean Corpuscular Hemoglobin 31, Mean Corpuscular Hemoglobin Concent 32, Red Cell Distribution Width 13.7, Platelet Count 186, Mean Platelet Volume 9.9, Neutrophils (%) (Auto) 82H, Lymphocytes (%) (Auto) 11L , Monocytes (%) (Auto) 6, Eosinophils (%) (Auto) 0, Basophils (%) (Auto) 0, Neutrophils # (Auto) 14.8H, Lymphocytes # (Auto) 2.0, Monocytes # (Auto) 1.1H, Eosinophils # (Auto) 0.0, Basophils # (Auto) 0.1, Sodium Level 134L, Potassium Level 4.1, Chloride Level 100, Carbon Dioxide Level 20L, Anion Gap 14, Blood Urea Nitrogen 6L, Creatinine 0.77, Estimat Glomerular Filtration Rate > 60, BUN/ Creatinine Ratio 8, Glucose Level 226H, Calcium Level 8.3L, Phosphorus Level 3.1 , Magnesium Level 1.2L 04/22/18 04:52: Blood Gas Puncture Site LEFT RADIAL, Blood Gas Patient Temperature 99.0, Arterial Blood pH 7.43, Arterial Blood Partial Pressure CO2 41, Arterial Blood Partial Pressure O2 81, Arterial Blood HCO3 27, Arterial Blood Total CO2 27.9, Arterial Blood Oxygen Saturation 98, Arterial Blood Base Excess 2.7H, Manjit Test POSITIVE, Blood Gas Ventilator Setting YES, Blood Gas Inspired Oxygen 40% Microbiology 04/21/18 MRSA Screen - Final, Complete MRSA not isolated Assessment/Plan Assessment/Plan Assess & Plan/Chief Complaint ASSESSMENT: s/p ACDF POD 1 respiratory arrest requiring intubation PLAN: medical care pain control CT negative for hematoma, hardware in good position Clinical Quality Measures DVT/VTE Risk/Contraindication: Risk Factor Score Per Nursin RFS Level Per Nursing on Admit: 4+=Very High EULA ROY DO Apr 22, 2018 12:24
--- NOTE | 2018-04-22 13:52 | Progress Note-Standard ---
Standard Progress Note Progress Notes/Assess & Plan Time Seen by a Provider: 13:45 Progress/Assessment & Plan Patient still on vent. Sedated. VSS. Plan to extubate tomorrow per nurse. JOANIE MEJIA CRNA Apr 22, 2018 13:52
[2018-04-22] MEDS: fentaNYL INJECTION 1,250 MCG in NS (IVPB) 250 ML IV SCH (18:22)
--- NOTE | 2018-04-22 19:47 | Progress Note (SOAP) ---
Subjective Date Seen by a Provider: Apr 22, 2018 Time Seen by a Provider: 12:30 Subjective/Events-last exam Fwup acute respiratory failure, postop stridor, tachycardia, COPD, diabetes mellitus II. Sedated on ventilator but does responde with nods to questions. Objective Exam Vital Signs Date Time Temp Pulse Resp B/P (MAP) Pulse Ox O2 Delivery O2 Flow Rate FiO2 04/22/18 18:23 109 20 94 35 04/22/18 18:00 118 30 120/67 (84) 98 Mechanical Ventilator 40.00 04/22/18 17:56 135/73 04/22/18 17:00 112 22 103/61 (75) 97 Mechanical Ventilator 40.00 04/22/18 16:05 105 21 96 35 04/22/18 16:00 98 Mechanical Ventilator 35 04/22/18 16:00 105 22 112/64 (80) 97 Mechanical Ventilator 40.00 04/22/18 15:00 103 21 107/62 (77) 97 Mechanical Ventilator 40.00 04/22/18 14:00 105 20 113/64 (80) 97 Mechanical Ventilator 40.00 04/22/18 13:33 99 21 95 35 04/22/18 13:00 88 18 126/75 (92) 95 Mechanical Ventilator 40.00 04/22/18 13:00 88 04/22/18 12:27 82 20 95 35 04/22/18 12:00 98.2 04/22/18 12:00 82 18 105/67 (80) 95 Mechanical Ventilator 40.00 04/22/18 12:00 98 Mechanical Ventilator 35 04/22/18 11:00 82 17 117/71 (86) 95 Mechanical Ventilator 40.00 04/22/18 10:00 87 18 113/69 (84) 94 Mechanical Ventilator 40.00 04/22/18 09:35 95 20 95 35 04/22/18 09:00 106 17 122/70 (87) 100 Mechanical Ventilator 40.00 04/22/18 08:00 85 17 120/71 (87) 100 Mechanical Ventilator 40.00 04/22/18 08:00 98 Mechanical Ventilator 35 04/22/18 07:00 91 04/22/18 07:00 90 18 112/61 (78) 97 Mechanical Ventilator 40.00 04/22/18 06:44 87 18 97 35 04/22/18 06:00 87 17 95/62 (73) 98 Mechanical Ventilator 40.00 04/22/18 05:00 90 18 100/62 (75) 97 Mechanical Ventilator 40.00 04/22/18 04:13 93 18 98 40 04/22/18 04:00 96 18 107/57 (74) 98 Mechanical Ventilator 40.00 04/22/18 04:00 98 Mechanical Ventilator 40 04/22/18 04:00 99.5 04/22/18 03:43 96 04/22/18 03:00 101 19 104/63 (77) 98 Mechanical Ventilator 50.00 04/22/18 02:08 99 18 100 50 04/22/18 02:00 98 18 104/54 (71) 99 Mechanical Ventilator 50.00 04/22/18 01:00 115 17 110/82 (91) 99 Mechanical Ventilator 50.00 04/22/18 01:00 115 04/22/18 00:04 Mechanical Ventilator 50.00 04/22/18 00:01 96 18 100 70 04/22/18 00:00 98 17 104/64 (77) 100 Mechanical Ventilator 70.00 04/22/18 00:00 99.7 04/22/18 00:00 98 Mechanical Ventilator 50 04/21/18 23:00 102 18 107/65 (79) 100 Mechanical Ventilator 70.00 04/21/18 22:34 103 18 100 70 04/21/18 22:00 107 17 125/75 (92) 100 Mechanical Ventilator 70.00 04/21/18 21:30 115 19 100/47 (64) 100 Mechanical Ventilator 70.00 04/21/18 21:00 107 17 143/83 (103) 100 Mechanical Ventilator 70.00 04/21/18 20:30 101 17 97/63 (74) 99 Mechanical Ventilator 70.00 04/21/18 20:00 98 Mechanical Ventilator 70 04/21/18 20:00 104 18 101/65 (77) 97 Mechanical Ventilator 70.00 04/21/18 19:45 105 17 88/72 (77) 95 Mechanical Ventilator 70.00 I & O 04/22/18 07:00 Intake Total 1390 ml Output Total 1350 ml Balance 40 ml Capillary Refill : Less Than 3 SecondsLess Than 3 Seconds General Appearance: Other (sedated on ventilator) Respiratory: Lungs Clear Cardiovascular: Regular Rate, Rhythm Gastrointestinal: non tender, soft Extremity: Non Tender, No Calf Tenderness, No Pedal Edema Results Lab Laboratory Tests 04/22/18 01:47: Glucometer 203H 04/22/18 03:55: White Blood Count 17.9H, Red Blood Count 4.06L, Hemoglobin 12.5, Hematocrit 40, Mean Corpuscular Volume 98, Mean Corpuscular Hemoglobin 31, Mean Corpuscular Hemoglobin Concent 32, Red Cell Distribution Width 13.7, Platelet Count 186, Mean Platelet Volume 9.9, Neutrophils (%) (Auto) 82H, Lymphocytes (%) (Auto) 11L , Monocytes (%) (Auto) 6, Eosinophils (%) (Auto) 0, Basophils (%) (Auto) 0, Neutrophils # (Auto) 14.8H, Lymphocytes # (Auto) 2.0, Monocytes # (Auto) 1.1H, Eosinophils # (Auto) 0.0, Basophils # (Auto) 0.1, Sodium Level 134L, Potassium Level 4.1, Chloride Level 100, Carbon Dioxide Level 20L, Anion Gap 14, Blood Urea Nitrogen 6L, Creatinine 0.77, Estimat Glomerular Filtration Rate > 60, BUN/ Creatinine Ratio 8, Glucose Level 226H, Calcium Level 8.3L, Phosphorus Level 3.1 , Magnesium Level 1.2L 04/22/18 04:52: Blood Gas Puncture Site LEFT RADIAL, Blood Gas Patient Temperature 99.0, Arterial Blood pH 7.43, Arterial Blood Partial Pressure CO2 41, Arterial Blood Partial Pressure O2 81, Arterial Blood HCO3 27, Arterial Blood Total CO2 27.9, Arterial Blood Oxygen Saturation 98, Arterial Blood Base Excess 2.7H, Manjit Test POSITIVE, Blood Gas Ventilator Setting YES, Blood Gas Inspired Oxygen 40% 04/22/18 12:39: Glucometer 364H 04/22/18 12:48: Glucometer 347H 04/22/18 17:52: Glucometer 354H Microbiology 04/21/18 MRSA Screen - Final, Complete MRSA not isolated Assessment/Plan Assessment/Plan Assess & Plan/Chief Complaint 1. Acute Respiratory Failure--sedated on ventilator 2. Postop Stridor--CT of neck negative, started on IV solumedrol per pulmonology 3. Diabetes mellitus--on SSI 4. COPD--stable 5. Tachycardia--improved 6. Hypotension--[facility] Clinical Quality Measures Admission Status Admission Dx 1. Post-op stridor with unstable airway--sedated and intubated on ventilator 2. 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 Hypertensive Urgency with SVT--responded to IV cardizem, likely in response to racemic epi 4. Cervical Spinal Stenosis with Anterior C5-C6 fusion--check stat CT of soft tissues to rule out hematoma DVT/VTE Risk/Contraindication: Risk Factor Score Per Nursin RFS Level Per Nursing on Admit: 4+=Very High NANNETTE REVELES DO Apr 22, 2018 19:47
[2018-04-22] MEDS: diphenhydrAMINE 25 MG TAB (BENADRYL) PO PRN (20:44)
[2018-04-22] MEDS: DEXMEDETOMIDINE INJECTION 200 MCG in NS (IVPB) 50 ML IV SCH (22:10)
[2018-04-22] MEDS: fentaNYL INJECTION 100 MCG/2 ML AMP IV PRN ×2 (22:12→23:40)
[2018-04-23] VITALS (35 sets, daily range): BP systolic 86–148; BP diastolic 50–85
[2018-04-23] MEDS: RT-ALBUTEROL/IPRATROPIUM 3 ML (DUONEB) VIAL INH SCH ×6 (02:30→22:40)
[2018-04-23 03:30] LABS: BASOPHILS % (AUTO) 0 % (0-10); EOSINOPHILS % (AUTO) 0 % (0-10); HEMATOCRIT 37 % (35-52); HEMOGLOBIN 11.9 G/DL (11.5-16.0); LYMPHOCYTES # (AUTO) 0.5 X 10^3 (1.0-4.0); LYMPHOCYTES % (AUTO) 4 % (12-44); MEAN CORPUSCULAR HEMOGLOBIN 30 PG (25-34); MEAN CORPUSCULAR HGB CONC 33 G/DL (32-36); MEAN CORPUSCULAR VOLUME 91 FL (80-99); MEAN PLATELET VOLUME 9.9 FL (7.4-10.4); MONOCYTES # (AUTO) 0.4 X 10^3 (0.0-1.0); MONOCYTES % (AUTO) 3 % (0-12); NEUTROPHILS # (AUTO) 10.9 X 10^3 (1.8-7.8); NEUTROPHILS % (AUTO) 92 % (42-75); PLATELET COUNT 187 10^3/uL (130-400); RED CELL DISTRIBUTION WIDTH 13.1 % (10.0-14.5); WHITE BLOOD COUNT 11.8 10^3/uL (4.3-11.0)
[2018-04-23 04:34] LABS: BUN/CREATININE RATIO 12; CALCIUM 8.8 MG/DL (8.5-10.1); CARBON DIOXIDE 23 MMOL/L (21-32); CHLORIDE 102 MMOL/L (98-107); CREATININE SERUM 0.76 MG/DL (0.60-1.30); GFR ESTIMATED > 60; GLUCOSE 364 MG/DL (70-105); MAGNESIUM 1.9 MG/DL (1.8-2.4); PHOSPHORUS 2.4 MG/DL (2.3-4.7); POTASSIUM 2.9 MMOL/L (3.6-5.0); SODIUM 135 MMOL/L (135-145)
[2018-04-23 04:40] LABS: ABG BASE EXCESS 0.6 MMOL/L (-2.5-2.5); ABG OXYGEN SATURATION 95 % (94-100); ABG PCO2 37 MMHG (35-45); ABG PH 7.43 (7.37-7.43); ABG PO2 63 MMHG (79-93); ABG TCO2 25.8 MMOL/L (21.0-31.0)
[2018-04-23 04:41] LABS: ALLENS TEST YES-POS; INSPIRED O2 35%; PATIENT TEMP 97.3; VENTILATOR YES
--- NOTE | 2018-04-23 05:11 | Pulmonary Progress Note ---
Subjective Time Seen by a Provider: 15:12 Sepsis Event Evaluation Height, Weight, BMI Height: 5'5.00" Weight: 220lbs. 0.0oz. 99.391093tr; 36.6 BMI Method:Estimated Exam Exam Vital Signs Date Time Temp Pulse Resp B/P (MAP) Pulse Ox O2 Delivery O2 Flow Rate FiO2 04/23/18 04:10 105 20 95 35 04/23/18 04:00 104 20 101/59 (73) 95 Mechanical Ventilator 35.00 04/23/18 03:00 89 18 99/57 (71) 95 Mechanical Ventilator 35.00 04/23/18 02:30 85 18 96 35 04/23/18 02:00 87 18 106/59 (75) 96 Mechanical Ventilator 35.00 04/23/18 01:00 93 17 98/54 (69) 96 Mechanical Ventilator 35.00 04/23/18 01:00 93 04/23/18 00:15 102 18 96 35 04/23/18 00:06 105 17 90/50 (63) 95 Mechanical Ventilator 35.00 04/23/18 00:00 98 Mechanical Ventilator 35 04/22/18 23:00 109 18 96/53 (67) 95 Mechanical Ventilator 35.00 04/22/18 22:07 111 19 94 35 04/22/18 22:00 109 18 91/51 (64) 93 Mechanical Ventilator 35.00 04/22/18 21:00 117 25 106/56 (73) 96 Mechanical Ventilator 35.00 04/22/18 20:00 117 21 95 35 04/22/18 20:00 117 23 114/61 (78) 95 Mechanical Ventilator 35.00 04/22/18 20:00 98 Mechanical Ventilator 35 04/22/18 19:00 110 20 110/57 (74) 95 Mechanical Ventilator 35.00 04/22/18 19:00 110 04/22/18 18:23 109 20 94 35 04/22/18 18:00 118 30 120/67 (84) 98 Mechanical Ventilator 40.00 04/22/18 17:56 135/73 04/22/18 17:00 112 22 103/61 (75) 97 Mechanical Ventilator 40.00 04/22/18 16:05 105 21 96 35 04/22/18 16:00 98 Mechanical Ventilator 35 04/22/18 16:00 105 22 112/64 (80) 97 Mechanical Ventilator 40.00 04/22/18 15:00 103 21 107/62 (77) 97 Mechanical Ventilator 40.00 04/22/18 14:00 105 20 113/64 (80) 97 Mechanical Ventilator 40.00 04/22/18 13:33 99 21 95 35 04/22/18 13:00 88 18 126/75 (92) 95 Mechanical Ventilator 40.00 04/22/18 13:00 88 04/22/18 12:27 82 20 95 35 04/22/18 12:00 98.2 04/22/18 12:00 82 18 105/67 (80) 95 Mechanical Ventilator 40.00 04/22/18 12:00 98 Mechanical Ventilator 35 04/22/18 11:00 82 17 117/71 (86) 95 Mechanical Ventilator 40.00 04/22/18 10:00 87 18 113/69 (84) 94 Mechanical Ventilator 40.00 04/22/18 09:35 95 20 95 35 04/22/18 09:00 106 17 122/70 (87) 100 Mechanical Ventilator 40.00 04/22/18 08:00 85 17 120/71 (87) 100 Mechanical Ventilator 40.00 04/22/18 08:00 98 Mechanical Ventilator 35 04/22/18 07:00 91 04/22/18 07:00 90 18 112/61 (78) 97 Mechanical Ventilator 40.00 04/22/18 06:44 87 18 97 35 04/22/18 06:00 87 17 95/62 (73) 98 Mechanical Ventilator 40.00 I & O 04/23/18 07:00 Intake Total 2400 ml Output Total 3300 ml Balance -900 ml Height & Weight Height: 5'5.00" Weight: 220lbs. 0.0oz. 99.792732ps; 36.6 BMI Method:Estimated General Appearance: Other (sedated on ventilator) HEENT: Other (ET tube in place ) Neck: Supple Respiratory: Lungs Clear Cardiovascular: Regular Rate, Rhythm Capillary Refill: Less Than 3 Seconds Gastrointestinal: non tender, soft Extremity: Non Tender, No Calf Tenderness, No Pedal Edema Neurologic/Psychiatric: Other (Cervical wound CDI, ) Skin: Warm/Dry Lymphatic: No Adenopathy Results Lab Laboratory Tests 04/21/18 17:39 04/22/18 03:55 04/23/18 03:09 Assessment/Plan Assessment/Plan Acute respiratory failure secondary to probable vocal cord spasms r/o recurrent laryngeal nerve damage - Will leave on vent for now --ABG pending -Start solumedrol 40 IV Q6 -Diprivan/fentanyl S/p C5-C6 fusion 04/22 -CT Neck reviewed no hematoma Hypotension with sinus tachycardia -LR at 75 cc/hr -Repeat bolus Hypomagnesium -replace Leukocytosis - prost surgical Hx of laryngal spasms HTN urgency -Monitor HX of cardiac arrest 2010 Last EF 50-55% CAD Obesity THERESA COOK DO Apr 23, 2018 05:11
[2018-04-23] MEDS: methylPREDNISolone 40 MG/ML (Solu-MEDROL) VIAL IV SCH ×4 (06:43→23:42)
[2018-04-23] MEDS: DEXMEDETOMIDINE INJECTION 200 MCG in NS (IVPB) 50 ML IV SCH (06:43)
[2018-04-23] MEDS: inSUlin ASPART (NovoLOG) 1 UNIT/0.01 ML (CHARGE PER UNIT) SQ SCH ×4 (06:44→23:42)
--- NOTE | 2018-04-23 06:44 | Diagnostic Imaging Report ---
INDICATION: Intubated. COMPARISON: 04/22/2018. FINDINGS: Single view of the chest demonstrates stable cardiac enlargement with slight central vascular congestion. No large effusion is seen. There is no pneumothorax. Support lines and cardiac pacemaker are stable. IMPRESSION: 1. Stable support lines. No pneumothorax. 2. Unchanged aeration of the lungs. Dictated by: Dictated on workstation # [id number]
[2018-04-23] MEDS: MAGNESIUM 1 GM/100 ML IVPB 100 ML IV SCH ×3 (06:45→14:32)
[2018-04-23] MEDS: KCL 20 MEQ TAB (K-DUR) PO SCH (06:45)
[2018-04-23] MEDS: POTASSIUM CL 10MEQ/50ML IVPB 50 ML IV SCH ×6 (06:45→13:05)
[2018-04-23] MEDS: MULTIVIT W/MINERALS TAB (THERAGRAN M) PO SCH (07:00)
[2018-04-23] MEDS ORDERED: DEXMEDETOMIDINE INJECTION 1,000 MCG in NS (IVPB) 250 ML IV SCH (08:45)
[2018-04-23] MEDS: DEXMEDETOMIDINE INJECTION 1,000 MCG in NS (IVPB) 250 ML IV SCH ×3 (08:54→23:47)
[2018-04-23] MEDS: inSUlin DETERMIR 1 UNIT/0.01 ML (LEVEMIR) CHARGE PER UNIT SQ SCH (09:10)
[2018-04-23] MEDS: fentaNYL INJECTION 100 MCG/2 ML AMP IV PRN ×3 (09:10→17:42)
[2018-04-23] MEDS: LACTATED RINGERS 1,000 ML IV SCH (09:10)
[2018-04-23] MEDS: GABAPENTIN 300 MG (NEURONTIN) CAP PO SCH ×2 (09:11→21:01)
[2018-04-23] MEDS: busPIRone 5 MG (BUSPAR) TAB PO SCH ×3 (09:11→21:01)
[2018-04-23] MEDS: meTOprolol TARTRATE 50 MG (LOPRESSOR) TAB PO SCH ×2 (09:11→20:37)
[2018-04-23] MEDS: SENNOSIDES 8.6 MG (SENOKOT) TAB PO SCH ×2 (09:11→21:01)
[2018-04-23] MEDS: FAMOTIDINE 20 MG (PEPCID) TABLET PO SCH (09:12)
--- NOTE | 2018-04-23 09:49 | Occ Therapy Progress Note ---
Therapy Progress Note Pt remains intubated. Will continue to follow. GEORGE ECHOLS OT Apr 23, 2018 09:48
[2018-04-23] MEDS: RT-BUDESONIDE NEBS 0.5 MG/2ML (PULMICORT) AMP INH SCH ×2 (10:17→18:56)
[2018-04-23] MEDS ORDERED: DILTIAZEM 25 MG/5 ML INJ (CARDIZEM) VIAL ONE (11:10)
--- NOTE | 2018-04-23 11:15 | NUR ---
Pastoral care visit, contacted upon his arrival as staff and 'cely were working with pt who was having some medical issues. I provided support to , he was coping well.
[2018-04-23] MEDS ORDERED: MIDAZOLAM 5 MG/5 ML (VERSED) VIAL ONE (11:31)
[2018-04-23] MEDS: DILTIAZEM 125 MG/NS 100 ML IV SCH ×2 (11:45)
--- NOTE | 2018-04-23 11:47 | Consultation-Cardiology ---
HPI-Cardiology Cardiology Consultation: Date of Consultation 04/23/18 Time Seen by a Provider: 11:50 Date of Admission Attending Physician Enrike Faulkner DO Admitting Physician Belia Reid DO Consulting Physician ULI YOO MD, MA, FACP, FACC, [facility] [place], CCDS Physician requesting consult: Dr Saleem HPI: Chief Complaint: Reason for consultation: A Fib with RVR, NSVT HPI: 72 yo woman who underwent C5-6 spinal surg on 04/21/18 and had post-op resp failure requiring intubation and mech vent and has been in the ICU. Had sudden onset of a rapid heart beat this am with a drop in bp. Heart fast and irreg with rates up to 170, brief runs of NSVT, SBP in the 90s. She is intubated and sedated and not able to provide history Review of Systems-Cardiology Review of Systems Constitutional: other (Intubated, sedated, on mech vent and unable to provide a review of systems) YHF-[id number]-Imlmao Hx Patient Social History Alcohol Use: Denies Use Recreational Drug Use: No 2nd Hand Smoke Exposure: Yes Recent Foreign Travel: No Recent Infectious Disease Expo: No Physical Abuse Screen: No Sexual Abuse: No Immunizations Up To Date Tetanus Booster (TDap): Unknown Date of Pneumonia Vaccine: Dec 02, 2017 Date of Influenza Vaccine: Jan 24, 2018 Past Medical History PMH As described under Assessment. Family Medical History Family History: Alzheimer's disease 19 FATHER Cardiovascular disease 19 FATHER 19 MOTHER Completed stroke 19 MOTHER Hypertension 19 FATHER 19 MOTHER Myocardial infarction 19 FATHER 19 MOTHER No Family History of: Diabetes mellitus Allergies and Home Medications Allergies Coded Allergies: milk (Verified Allergy, Intermediate, 10/16/17) Penicillins (Unverified Allergy, Unknown, Pt has received Cefepime & Ceftriaxone in the past w/o issue, 01/18/17) Sulfa (Sulfonamide Antibiotics) (Verified Allergy, Unknown, 06/08/16) egg (Unverified Allergy, Unknown, 04/22/18) FROM UNCODED ALLERGIES aspirin (Verified Adverse Reaction, Mild, ASPIRIN SENSITIVE, 06/08/16) sumatriptan (Verified Adverse Reaction, Mild, PALPITATIONS, 06/08/16) Home Medications Buspirone HCl 5 Mg Tablet, 5 MG PO TID, (Reported) Gabapentin 100 Mg Capsule, 100 MG PO HS, (Reported) TAKES ALONG WITH 300MG CAPSULE FOR A TOTAL NIGHTLY DOSE OF 400MG Gabapentin 300 Mg Capsule, 300 MG PO BID, (Reported) Insulin Glargine,Hum.rec.anlog 100 Unit/1 Ml Insuln.pen, 38 UNITS SQ DAILY, ( Reported) Ipratropium/Albuterol Sulfate 3 Ml Ampul.neb, 3 ML NEB Q6H PRN for SHORTNESS OF BREATH, (Reported) Lorazepam 0.5 Mg Tablet, 0.5 MG PO TID PRN for ANXIETY, (Reported) Metformin HCl 500 Mg Tab.er.24h, 1,000 MG PO DAILY, (Reported) TAKE 2 (500MG) TABS Metformin HCl 500 Mg Tab.er.24h, 500 MG PO HS, (Reported) Metoprolol Tartrate 100 Mg Tablet, 100 MG PO BID, (Reported) Omeprazole 40 Mg Capsule.dr, 40 MG PO BID, (Reported) Pramipexole Di-HCl 1 Mg Tablet, 1 MG PO 1700, (Reported) Patient Home Medication List Home Medication List Reviewed: Yes Physical Exam-Cardiology Physical Exam Vital Signs/I&O 04/23/18 04/23/18 04/23/18 04/23/18 03:00 04:00 04:00 04:00 Temp 97.2 Pulse 89 104 Resp 18 20 B/P (MAP) 99/57 (71) 101/59 (73) Pulse Ox 95 97 95 O2 Delivery Mechanical Ventilator Mechanical Ventilator Mechanical Ventilator O2 Flow Rate 35.00 35.00 FiO2 35 04/23/18 04/23/18 04/23/18 04/23/18 04:10 05:00 06:00 06:05 Pulse 105 96 85 84 Resp 20 18 17 20 B/P (MAP) 120/65 (83) 145/73 (97) Pulse Ox 95 95 96 96 O2 Delivery Mechanical Ventilator Mechanical Ventilator O2 Flow Rate 35.00 35.00 FiO2 35 35 04/23/18 04/23/18 04/23/18 04/23/18 07:00 07:00 08:00 08:00 Pulse 83 82 87 Resp 17 18 B/P (MAP) 147/77 (100) 142/74 (96) Pulse Ox 97 95 97 O2 Delivery Mechanical Ventilator Mechanical Ventilator Mechanical Ventilator O2 Flow Rate 35.00 35.00 FiO2 35 04/23/18 04/23/18 04/23/1819 08:42 09:00 10:00 10:18 Pulse 89 92 98 93 Resp 18 23 20 19 B/P (MAP) 86/77 (80) 141/75 (97) Pulse Ox 95 94 95 95 O2 Delivery Mechanical Ventilator Mechanical Ventilator O2 Flow Rate 35.00 35.00 FiO2 35 35 04/23/18 04/23/18 04/23/18 04/23/18 11:00 12:00 12:00 13:00 Pulse 92 130 129 Resp 18 17 B/P (MAP) 148/79 (102) 118/65 (82) Pulse Ox 96 97 100 O2 Delivery Mechanical Ventilator Mechanical Ventilator Mechanical Ventilator O2 Flow Rate 35.00 35.00 FiO2 35 04/23/18 04/23/18 04/23/18 13:00 14:00 14:24 Pulse 115 113 116 Resp 19 17 21 B/P (MAP) 102/83 (89) 113/77 (89) Pulse Ox 100 100 100 O2 Delivery Mechanical Ventilator Mechanical Ventilator O2 Flow Rate 35.00 35.00 FiO2 35 04/22/18 23:59 Intake Total 200 ml Output Total 1200 ml Balance -1000 ml Capillary Refill : Less Than 3 SecondsLess Than 3 Seconds Constitutional: other (intubated, sedated and on mech vent) HEENT: PERRL; No xanthelasmas are seen Neck: carotid pulses are 2 + bilaterally, with good upstrokes Respiratory: No accessory muscle use; other (fair to good bilat air entry) Cardiovascular: irregularly irregular, S1 and S2, systolic murmur (soft WOLF at card base) Gastrointestinal: soft; No guarding, No rebound; audible bowel sounds Extremities: No clubbing, No cyanosis, No significant edema Neurologic/Psychiatric: other (intubated, sedated, not able to cooperate with a neuro exam) Skin: No cool; diaphoresis; No rash on exposed areas, No ulcerations on exposed areas Data Review Labs Laboratory Tests 04/22/18 17:52: Glucometer 354H 04/22/18 23:37: Glucometer 314H 04/23/18 03:09: White Blood Count 11.8H, Red Blood Count 4.00L, Hemoglobin 11.9, Hematocrit 37, Mean Corpuscular Volume 91, Mean Corpuscular Hemoglobin 30, Mean Corpuscular Hemoglobin Concent 33, Red Cell Distribution Width 13.1, Platelet Count 187, Mean Platelet Volume 9.9, Neutrophils (%) (Auto) 92H, Lymphocytes (%) (Auto) 4L , Monocytes (%) (Auto) 3, Eosinophils (%) (Auto) 0, Basophils (%) (Auto) 0, Neutrophils # (Auto) 10.9H, Lymphocytes # (Auto) 0.5L, Monocytes # (Auto) 0.4, Eosinophils # (Auto) 0.0, Basophils # (Auto) 0.0, Sodium Level 135, Potassium Level 2.9L, Chloride Level 102, Carbon Dioxide Level 23, Anion Gap 10, Blood Urea Nitrogen 9, Creatinine 0.76, Estimat Glomerular Filtration Rate > 60, BUN/ Creatinine Ratio 12, Glucose Level 364H, Calcium Level 8.8, Phosphorus Level 2.4 , Magnesium Level 1.9 04/23/18 04:34: Blood Gas Puncture Site R RAD, Blood Gas Patient Temperature 97.3, Arterial Blood pH 7.43, Arterial Blood Partial Pressure CO2 37, Arterial Blood Partial Pressure O2 63L, Arterial Blood HCO3 25, Arterial Blood Total CO2 25.8, Arterial Blood Oxygen Saturation 95, Arterial Blood Base Excess 0.6, Manjit Test YES-POS, Blood Gas Ventilator Setting YES, Blood Gas Inspired Oxygen 35% 04/23/18 12:15: White Blood Count 8.7, Red Blood Count 3.99L, Hemoglobin 11.9, Hematocrit 37, Mean Corpuscular Volume 93, Mean Corpuscular Hemoglobin 30, Mean Corpuscular Hemoglobin Concent 32, Red Cell Distribution Width 13.1, Platelet Count 67L, Mean Platelet Volume 10.3, Neutrophils (%) (Auto) 94H, Lymphocytes (%) (Auto) 4L , Monocytes (%) (Auto) 1, Eosinophils (%) (Auto) 1, Basophils (%) (Auto) 0, Neutrophils # (Auto) 8.2H, Lymphocytes # (Auto) 0.4L, Monocytes # (Auto) 0.1, Eosinophils # (Auto) 0.1, Basophils # (Auto) 0.0, Sodium Level 136, Potassium Level 3.8, Chloride Level 104, Carbon Dioxide Level 18L, Anion Gap 14, Blood Urea Nitrogen 10, Creatinine 0.76, Estimat Glomerular Filtration Rate > 60, BUN/ Creatinine Ratio 13, Glucose Level 389H, Calcium Level 8.4L, Corrected Calcium 9.0, Phosphorus Level 3.2, Magnesium Level 2.2, Total Bilirubin 0.4, Aspartate Amino Transf (AST/SGOT) 22, Alanine Aminotransferase (ALT/SGPT) 19, Alkaline Phosphatase 70, Troponin I 0.049H, Total Protein 5.7L, Albumin 3.2 Microbiology 04/21/18 MRSA Screen - Final, Complete MRSA not isolated Laboratory Tests 04/21/18 17:39 04/22/18 03:55 04/23/18 03:09 04/23/18 12:15 A/P-Cardiology Assessment/Admission Diagnosis PAF with RVR associated with hypotension S/p spinal fusion surgery and post-op resp failure requiring intubation and mech vent Echo of 04/23/18: mod concentric LVH, LVEF 65-70%, mild left atrial enlargement, PASP 30-35 mmHg Electrolyte abnormalities, being corrected Previous h/o paroxysmal atrial tach and palpitations Chronic migraine headaches. Chronic body pains and fibromyalgia. H/o labile hypertension and postural hypotension History of perioperative bradycardia (asystole) and tachycardia (ventricular fibrillation). 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 MPI of Nov 2017 showed no evidence of significant myocardial ischemia or infarction. LVEF 78% Chronic pain syndrome. Obesity with a body mass index of approximately 36 The patient has been intolerant to statin therapy on account of chronic pain syndrome. 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 Dr Saleem following and has diagnosed restrictive lung disease Suspected LION - awaiting sleep studies at [facility] Bilateral intermittent leg swelling, chornic. Venous insuff study of 02/15/16 did not show DVT or reflux in the deep venous system or valvular insuff of greater or small saphenous system or AASV Less than 40% DANIELLE stenosis, 40-59% LICA stenosis on carotid u/s of 02/03/16 Discussion and Recomendations * VT and PAF with amio * Dilt for vent rate control * Not suitable for anticoag at this time (freshly post spinal surgery) * iv fluids for bp support * Stat echo * Maintain mech vent for now * Discussed with Dr Saleem Clinical Quality Measures DVT/VTE Risk/Contraindication: Risk Factor Score Per Nursin RFS Level Per Nursing on Admit: 4+=Very High ULI YOO MD FACP FACC CCDS Apr 23, 2018 11:47
[2018-04-23] MEDS ORDERED: NS IV 1000 ML 1,000 ML ONE (11:53)
[2018-04-23] MEDS ORDERED: DIGOXIN 0.25 MG/ML (LANOXIN) 2 ML AMP IV NR ×2 (12:00→14:00)
--- NOTE | 2018-04-23 12:04 | Physical Therapy Progress Note ---
Therapy Progress Note Pt remain on mechanical ventilator. PT will assess when pt is medically stable to participate in physical therapy services. AP ALVARADO PT Apr 23, 2018 12:04
--- NOTE | 2018-04-23 12:34 | NUR ---
1110 NOTIFIED JOYCE OF 150S-170S HEART RATE, PSVT 1114 AMIO 150MG IVP OVER 10 MIN 1115 CARDIZEM 10 IVP 1115 INTERNAL DEFIB SHOCK, HEART RATE 147 1120 EKG @ BEDSIDE, AFIB 1126 AMIO 1MG/MIN GTT STARTED 1126 NS WIDE OPEN 1127 NAILA AT BEDSIDE 1129 PRECEDEX 1.5MG 1129 JOYCE SPOKE WITH IN HALLWAY 1137 FENT 50MCG 1137 VERSED 2MG 1145 CARDIZEM GTT 10MG 1200 CENTRAL LINE PLACED 1202 CARDIZEM GTT INCREASED 15MG 1203 NS STARTED AT 150 1220 FAMILY AT BEDSIDE
[2018-04-23 12:41] LABS: BASOPHILS % (AUTO) 0 % (0-10); EOSINOPHILS # (AUTO) 0.1 10^3/uL (0.0-0.3); EOSINOPHILS % (AUTO) 1 % (0-10); HEMATOCRIT 37 % (35-52); HEMOGLOBIN 11.9 G/DL (11.5-16.0); LYMPHOCYTES # (AUTO) 0.4 X 10^3 (1.0-4.0); LYMPHOCYTES % (AUTO) 4 % (12-44); MEAN CORPUSCULAR HEMOGLOBIN 30 PG (25-34); MEAN CORPUSCULAR HGB CONC 32 G/DL (32-36); MEAN CORPUSCULAR VOLUME 93 FL (80-99); MEAN PLATELET VOLUME 10.3 FL (7.4-10.4); MONOCYTES # (AUTO) 0.1 X 10^3 (0.0-1.0); MONOCYTES % (AUTO) 1 % (0-12); NEUTROPHILS # (AUTO) 8.2 X 10^3 (1.8-7.8); NEUTROPHILS % (AUTO) 94 % (42-75); PLATELET COUNT 67 10^3/uL (130-400); RED CELL DISTRIBUTION WIDTH 13.1 % (10.0-14.5); WHITE BLOOD COUNT 8.7 10^3/uL (4.3-11.0)
--- NOTE | 2018-04-23 12:47 | NUR ---
[address] ROY, UPDATED HIM. QUESTIONED GIVING LOVENOX FOR DR YOO. KIRILL SAYS BETTER TO WAIT FOR 3 DAYS OUT FROM SURGERY TO START LOVENOX. [address] YOO THAT KIRILL THOUGHT IT WAS BEST TO WAIT 3 DAYS OUT FROM SURGERY. WE WILL HOLD OFF ON LOVENOX AT THIS POINT.
--- NOTE | 2018-04-23 12:52 | Diagnostic Imaging Report ---
INDICATION: Central venous catheter evaluation. 1227 hrs. Upright portable AP view of the chest is obtained. Comparison is made study of earlier in the day. FINDINGS: Endotracheal tube is in place with tip just below the thoracic inlet. Nasogastric tube passes below the diaphragm. There is blunting of left costophrenic sulcus. Overlying defibrillator pad and monitoring leads are noted. Defibrillator battery pack is seen left anterior chest wall. IMPRESSION: Probable mild left basilar atelectasis and/or pleural fluid. Otherwise, there is no evidence of adverse change post placement of right internal jugular vein which reaches the upper superior vena cava. Dictated by: Dictated on workstation # [id number]
[2018-04-23 12:55] LABS: ALANINE AMINOTRANSFERASE 19 U/L (0-55); ALBUMIN 3.2 GM/DL (3.2-4.5); ALKALINE PHOSPHATASE 70 U/L (40-136); BILIRUBIN,TOTAL 0.4 MG/DL (0.1-1.0); BUN/CREATININE RATIO 13; CALCIUM 8.4 MG/DL (8.5-10.1); CARBON DIOXIDE 18 MMOL/L (21-32); CHLORIDE 104 MMOL/L (98-107); CREATININE SERUM 0.76 MG/DL (0.60-1.30); GFR ESTIMATED > 60; GLUCOSE 389 MG/DL (70-105); MAGNESIUM 2.2 MG/DL (1.8-2.4); PHOSPHORUS 3.2 MG/DL (2.3-4.7); POTASSIUM 3.8 MMOL/L (3.6-5.0); SODIUM 136 MMOL/L (135-145); TOTAL PROTEIN 5.7 GM/DL (6.4-8.2)
--- NOTE | 2018-04-23 13:25 | Pulmonary Progress Note ---
Standard Progress Note Progress Notes Time Seen by Provider: 11:00 Called to bedside secondary to acute SVT. While I am at bedside pt has long run of Vtach followed by hypotension. Assessment & Plan Acute respiratory failure secondary to probable vocal cord spasms r/o recurrent laryngeal nerve damage - Will leave on vent for now --ABG pending -Start solumedrol 40 IV Q6 -Diprivan/fentanyl Acute onset SVT followed by runs of Vtach and hypotension -Amiodarone 150mg IV x 1 -Cardizem 10mg IV x 1 -Start amio and cardizem gtt -D/w Dr. Cerda and Dr. Reid -GIve 1 liter bolus of NS -Total time spent with pt not including central line is 60min. S/p C5-C6 fusion 04/22 -CT Neck reviewed no hematoma Hypotension with sinus tachycardia -LR at 75 cc/hr -Repeat bolus Hypomagnesium -replace Leukocytosis - prost surgical Hx of laryngal spasms HTN urgency -Monitor HX of cardiac arrest 2010 Last EF 50-55% CAD Obesity Critical Care: Critically Ill Patient Time spent with patient (mins): 60 THERESA COOK DO Apr 23, 2018 13:25
--- NOTE | 2018-04-23 13:33 | Pulmonary Procedures ---
Pulmonary Procedures Date of Procedure Date of Service: Apr 23, 2018 Lumen: triple (US was used to visulize needle going into IJ) Central Line Procedure: betadine prep, sterile drapes applied, sterile dressing applied Position: internal jugular (R) Anesthesia: local Volume Anesthetic (ccs): 5 Complications: none Post Position: sutured, good blood return, position confirmed w/ CXR THERESA COOK DO Apr 23, 2018 13:33
--- NOTE | 2018-04-23 14:00 | NUR ---
Pastoral care visit, and son at bedside.
[2018-04-23] MEDS ORDERED: NS 1000 ML IV BAG IV ONE (14:53)
[2018-04-23] MEDS ORDERED: AMIODARONE (OMNICELL DRIP KIT) 150 MG/3 ML IV ONE (14:53)
[2018-04-23] MEDS: NS IV 1000 ML 1,000 ML IV SCH ×2 (16:00→22:02)
[2018-04-23] MEDS: PRAMIPEXOLE 0.5 MG TAB (MIRAPEX) PO SCH (16:46)
[2018-04-23 17:13] LABS: ABG BASE EXCESS -3.3 MMOL/L (-2.5-2.5); ABG OXYGEN SATURATION 100 % (94-100); ABG PCO2 36 MMHG (35-45); ABG PH 7.38 (7.37-7.43); ABG PO2 183 MMHG (79-93); ABG TCO2 22.7 MMOL/L (21.0-31.0)
[2018-04-23 17:16] LABS: ALLENS TEST POSITIVE; INSPIRED O2 100%; PATIENT TEMP 93.7; VENTILATOR YES
--- NOTE | 2018-04-23 17:31 | Progress Note (SOAP) ---
Subjective Date Seen by a Provider: Apr 23, 2018 Time Seen by a Provider: 17:23 Subjective/Events-last exam pod #2 s/p acdf complicated by post op respiratory failure. Patient intubated awake and responsive, communicating with pen and paper. Had runs of v-tach and hypotension today. Objective Exam Vital Signs Date Time Temp Pulse Resp B/P (MAP) Pulse Ox O2 Delivery O2 Flow Rate FiO2 04/23/18 17:05 98 13 97/67 (77) 100 Mechanical Ventilator 35.00 04/23/18 16:04 109 17 102/68 (79) 100 Mechanical Ventilator 35.00 04/23/18 16:00 97 Mechanical Ventilator 35 04/23/18 15:23 97.2 04/23/18 15:00 104 27 100/85 (90) 96 Mechanical Ventilator 35.00 04/23/18 14:24 116 21 100 35 04/23/18 14:00 113 17 113/77 (89) 100 Mechanical Ventilator 35.00 04/23/18 13:00 115 19 102/83 (89) 100 Mechanical Ventilator 35.00 04/23/18 13:00 129 04/23/18 12:00 130 17 118/65 (82) 100 Mechanical Ventilator 35.00 04/23/18 12:00 97 Mechanical Ventilator 35 04/23/18 11:00 92 18 148/79 (102) 96 Mechanical Ventilator 35.00 04/23/18 10:18 93 19 95 35 04/23/18 10:00 98 20 141/75 (97) 95 Mechanical Ventilator 35.00 04/23/18 09:00 92 23 86/77 (80) 94 Mechanical Ventilator 35.00 04/23/18 08:42 89 18 95 35 04/23/18 08:00 97 Mechanical Ventilator 35 04/23/18 08:00 87 18 142/74 (96) 95 Mechanical Ventilator 35.00 04/23/18 07:00 82 17 147/77 (100) 97 Mechanical Ventilator 35.00 04/23/18 07:00 83 04/23/18 06:05 84 20 96 35 04/23/18 06:00 85 17 145/73 (97) 96 Mechanical Ventilator 35.00 04/23/18 05:00 96 18 120/65 (83) 95 Mechanical Ventilator 35.00 04/23/18 04:10 105 20 95 35 04/23/18 04:00 97.2 04/23/18 04:00 104 20 101/59 (73) 95 Mechanical Ventilator 35.00 04/23/18 04:00 97 Mechanical Ventilator 35 04/23/18 03:00 89 18 99/57 (71) 95 Mechanical Ventilator 35.00 04/23/18 02:30 85 18 96 35 04/23/18 02:00 87 18 106/59 (75) 96 Mechanical Ventilator 35.00 04/23/18 01:00 93 17 98/54 (69) 96 Mechanical Ventilator 35.00 04/23/18 01:00 93 04/23/18 00:15 102 18 96 35 04/23/18 00:06 105 17 90/50 (63) 95 Mechanical Ventilator 35.00 04/23/18 00:00 98 Mechanical Ventilator 35 04/23/18 00:00 97.6 04/22/18 23:00 109 18 96/53 (67) 95 Mechanical Ventilator 35.00 04/22/18 22:07 111 19 94 35 04/22/18 22:00 109 18 91/51 (64) 93 Mechanical Ventilator 35.00 04/22/18 21:00 117 25 106/56 (73) 96 Mechanical Ventilator 35.00 04/22/18 20:00 117 21 95 35 04/22/18 20:00 117 23 114/61 (78) 95 Mechanical Ventilator 35.00 04/22/18 20:00 98 Mechanical Ventilator 35 04/22/18 20:00 97.8 04/22/18 19:00 110 20 110/57 (74) 95 Mechanical Ventilator 35.00 04/22/18 19:00 110 04/22/18 18:23 109 20 94 35 04/22/18 18:00 118 30 120/67 (84) 98 Mechanical Ventilator 40.00 04/22/18 17:56 135/73 I & O 04/23/18 07:00 Intake Total 2400 ml Output Total 3400 ml Balance -1000 ml Capillary Refill : Less Than 3 SecondsLess Than 3 Seconds General Appearance: Mild Distress Neck: Other (bandange to left anterior neck is clean and dry. no swelling jvd or tracheal deviation) Respiratory: Other (intubated) Cardiovascular: Other (mild pedal edema) Extremity: Normal Capillary Refill, Normal Inspection, Normal Range of Motion, Other Neurologic/Psychiatric: Alert, Other (clonus noted, silt to ue and le, motor strength seems intact, patient restrained to not fully assessed) Skin: Normal Color Results Lab Laboratory Tests 04/22/18 17:52: Glucometer 354H 04/22/18 23:37: Glucometer 314H 04/23/18 03:09: White Blood Count 11.8H, Red Blood Count 4.00L, Hemoglobin 11.9, Hematocrit 37, Mean Corpuscular Volume 91, Mean Corpuscular Hemoglobin 30, Mean Corpuscular Hemoglobin Concent 33, Red Cell Distribution Width 13.1, Platelet Count 187, Mean Platelet Volume 9.9, Neutrophils (%) (Auto) 92H, Lymphocytes (%) (Auto) 4L , Monocytes (%) (Auto) 3, Eosinophils (%) (Auto) 0, Basophils (%) (Auto) 0, Neutrophils # (Auto) 10.9H, Lymphocytes # (Auto) 0.5L, Monocytes # (Auto) 0.4, Eosinophils # (Auto) 0.0, Basophils # (Auto) 0.0, Sodium Level 135, Potassium Level 2.9L, Chloride Level 102, Carbon Dioxide Level 23, Anion Gap 10, Blood Urea Nitrogen 9, Creatinine 0.76, Estimat Glomerular Filtration Rate > 60, BUN/ Creatinine Ratio 12, Glucose Level 364H, Calcium Level 8.8, Phosphorus Level 2.4 , Magnesium Level 1.9 04/23/18 04:34: Blood Gas Puncture Site R RAD, Blood Gas Patient Temperature 97.3, Arterial Blood pH 7.43, Arterial Blood Partial Pressure CO2 37, Arterial Blood Partial Pressure O2 63L, Arterial Blood HCO3 25, Arterial Blood Total CO2 25.8, Arterial Blood Oxygen Saturation 95, Arterial Blood Base Excess 0.6, Manjit Test YES-POS, Blood Gas Ventilator Setting YES, Blood Gas Inspired Oxygen 35% 04/23/18 12:15: White Blood Count 8.7, Red Blood Count 3.99L, Hemoglobin 11.9, Hematocrit 37, Mean Corpuscular Volume 93, Mean Corpuscular Hemoglobin 30, Mean Corpuscular Hemoglobin Concent 32, Red Cell Distribution Width 13.1, Platelet Count 67L, Mean Platelet Volume 10.3, Neutrophils (%) (Auto) 94H, Lymphocytes (%) (Auto) 4L , Monocytes (%) (Auto) 1, Eosinophils (%) (Auto) 1, Basophils (%) (Auto) 0, Neutrophils # (Auto) 8.2H, Lymphocytes # (Auto) 0.4L, Monocytes # (Auto) 0.1, Eosinophils # (Auto) 0.1, Basophils # (Auto) 0.0, Sodium Level 136, Potassium Level 3.8, Chloride Level 104, Carbon Dioxide Level 18L, Anion Gap 14, Blood Urea Nitrogen 10, Creatinine 0.76, Estimat Glomerular Filtration Rate > 60, BUN/ Creatinine Ratio 13, Glucose Level 389H, Calcium Level 8.4L, Corrected Calcium 9.0, Phosphorus Level 3.2, Magnesium Level 2.2, Total Bilirubin 0.4, Aspartate Amino Transf (AST/SGOT) 22, Alanine Aminotransferase (ALT/SGPT) 19, Alkaline Phosphatase 70, Troponin I 0.049H, Total Protein 5.7L, Albumin 3.2 04/23/18 17:03: Blood Gas Puncture Site RIGHT RADIAL, Blood Gas Patient Temperature 93.7, Arterial Blood pH 7.38, Arterial Blood Partial Pressure CO2 36, Arterial Blood Partial Pressure O2 183H, Arterial Blood HCO3 21L, Arterial Blood Total CO2 22.7 , Arterial Blood Oxygen Saturation 100, Arterial Blood Base Excess -3.3L, Manjit Test POSITIVE, Blood Gas Ventilator Setting YES, Blood Gas Inspired Oxygen 100% Microbiology 04/21/18 MRSA Screen - Final, Complete MRSA not isolated Assessment/Plan Assessment/Plan Assess & Plan/Chief Complaint assessment respiratory failure, prior hx of psychogenic stridor cardiac arrhythmias with hx of cardiac arrest in 2010 DM s/p acdf plan: cervical x-ray once able, when patient is weaned from vent and extubated c-collar if out of bed Clinical Quality Measures DVT/VTE Risk/Contraindication: Risk Factor Score Per Nursin RFS Level Per Nursing on Admit: 4+=Very High BRADY HAUSER Apr 23, 2018 17:31
--- NOTE | 2018-04-23 17:49 | NUR ---
PATIENT STARTED GETTING ANXIOUS, PULLING AT SHEET AND GOWN, THROWING HANDS UP IN AIR, PULLING PILLOWCASES OFF AND THROWING THEM, PUSHING AROUND ON PILLOWS WITH ANGER. GAVE FENT 50MCG, NOT MUCH RELIEF OR REST FAMILY AT BEDSIDE, PATIENT CONSTANTLY TRYING TO WRITE THINGS FOR THEM TO READ AND GETTING FRUSTRATED WHEN THEY CANNOT READ WHAT SHE HAS WRITTEN. REPOSITIONED HER IN BED, CHECKED WRISTS FOR SIGNS OF INJURY FROM RESTRAINTS, CHECKED CATHETER, MOISTENED MOUTH WITH SWAB. NOTHING SEEMS TO CALM HER. NOTIFIED DR COOK OF PATIENTS MENTAL CHANGE. BP TOO SOFT FOR PROPOFOL 80S-90S/50S. JOYCE ORDERED 500 BOLUS WILL CONTINUE TO MONITOR
--- NOTE | 2018-04-23 18:36 | Progress Note (SOAP) ---
Subjective Date Seen by a Provider: Apr 23, 2018 Time Seen by a Provider: 12:45 Subjective/Events-last exam Fwup acute respiratory failure, postop stridor, tachycardia, COPD, diabetes mellitus II. Had episode of SVT this morning then runs of V Tach so had to be placed on Cardizem drip as well as amiodarone drip and cardiology was consulted. Patient still on ventilator but opens eyes and responds to questions. Objective Exam Vital Signs Date Time Temp Pulse Resp B/P (MAP) Pulse Ox O2 Delivery O2 Flow Rate FiO2 04/23/18 18:08 106 13 90/63 (72) 95 Mechanical Ventilator 35.00 04/23/18 17:05 98 13 97/67 (77) 100 Mechanical Ventilator 35.00 04/23/18 16:04 109 17 102/68 (79) 100 Mechanical Ventilator 35.00 04/23/18 16:00 97 Mechanical Ventilator 35 04/23/18 15:23 97.2 04/23/18 15:00 104 27 100/85 (90) 96 Mechanical Ventilator 35.00 04/23/18 14:24 116 21 100 35 04/23/18 14:00 113 17 113/77 (89) 100 Mechanical Ventilator 35.00 04/23/18 13:00 115 19 102/83 (89) 100 Mechanical Ventilator 35.00 04/23/18 13:00 129 04/23/18 12:00 130 17 118/65 (82) 100 Mechanical Ventilator 35.00 04/23/18 12:00 97 Mechanical Ventilator 35 04/23/18 11:00 92 18 148/79 (102) 96 Mechanical Ventilator 35.00 04/23/18 10:18 93 19 95 35 04/23/18 10:00 98 20 141/75 (97) 95 Mechanical Ventilator 35.00 04/23/18 09:00 92 23 86/77 (80) 94 Mechanical Ventilator 35.00 04/23/18 08:42 89 18 95 35 04/23/18 08:00 97 Mechanical Ventilator 35 04/23/18 08:00 87 18 142/74 (96) 95 Mechanical Ventilator 35.00 04/23/18 07:00 82 17 147/77 (100) 97 Mechanical Ventilator 35.00 04/23/18 07:00 83 04/23/18 06:05 84 20 96 35 04/23/18 06:00 85 17 145/73 (97) 96 Mechanical Ventilator 35.00 04/23/18 05:00 96 18 120/65 (83) 95 Mechanical Ventilator 35.00 04/23/18 04:10 105 20 95 35 04/23/18 04:00 97.2 04/23/18 04:00 104 20 101/59 (73) 95 Mechanical Ventilator 35.00 04/23/18 04:00 97 Mechanical Ventilator 35 04/23/18 03:00 89 18 99/57 (71) 95 Mechanical Ventilator 35.00 04/23/18 02:30 85 18 96 35 04/23/18 02:00 87 18 106/59 (75) 96 Mechanical Ventilator 35.00 04/23/18 01:00 93 17 98/54 (69) 96 Mechanical Ventilator 35.00 04/23/18 01:00 93 04/23/18 00:15 102 18 96 35 04/23/18 00:06 105 17 90/50 (63) 95 Mechanical Ventilator 35.00 04/23/18 00:00 98 Mechanical Ventilator 35 04/23/18 00:00 97.6 04/22/18 23:00 109 18 96/53 (67) 95 Mechanical Ventilator 35.00 04/22/18 22:07 111 19 94 35 04/22/18 22:00 109 18 91/51 (64) 93 Mechanical Ventilator 35.00 04/22/18 21:00 117 25 106/56 (73) 96 Mechanical Ventilator 35.00 04/22/18 20:00 117 21 95 35 04/22/18 20:00 117 23 114/61 (78) 95 Mechanical Ventilator 35.00 04/22/18 20:00 98 Mechanical Ventilator 35 04/22/18 20:00 97.8 04/22/18 19:00 110 20 110/57 (74) 95 Mechanical Ventilator 35.00 04/22/18 19:00 110 I & O 04/23/18 07:00 Intake Total 2400 ml Output Total 3400 ml Balance -1000 ml Capillary Refill : Less Than 3 SecondsLess Than 3 Seconds General Appearance: No Apparent Distress Neck: Supple Respiratory: Lungs Clear Cardiovascular: Systolic Murmur, Tachycardia Gastrointestinal: normal bowel sounds, non tender, soft Extremity: Non Tender, No Calf Tenderness, No Pedal Edema Neurologic/Psychiatric: Alert (but still on ventilator ) Skin: Warm/Dry Results Lab Laboratory Tests 2/19/19 23:37: Glucometer 314H 04/23/18 03:09: White Blood Count 11.8H, Red Blood Count 4.00L, Hemoglobin 11.9, Hematocrit 37, Mean Corpuscular Volume 91, Mean Corpuscular Hemoglobin 30, Mean Corpuscular Hemoglobin Concent 33, Red Cell Distribution Width 13.1, Platelet Count 187, Mean Platelet Volume 9.9, Neutrophils (%) (Auto) 92H, Lymphocytes (%) (Auto) 4L , Monocytes (%) (Auto) 3, Eosinophils (%) (Auto) 0, Basophils (%) (Auto) 0, Neutrophils # (Auto) 10.9H, Lymphocytes # (Auto) 0.5L, Monocytes # (Auto) 0.4, Eosinophils # (Auto) 0.0, Basophils # (Auto) 0.0, Sodium Level 135, Potassium Level 2.9L, Chloride Level 102, Carbon Dioxide Level 23, Anion Gap 10, Blood Urea Nitrogen 9, Creatinine 0.76, Estimat Glomerular Filtration Rate > 60, BUN/ Creatinine Ratio 12, Glucose Level 364H, Calcium Level 8.8, Phosphorus Level 2.4 , Magnesium Level 1.9 04/23/18 04:34: Blood Gas Puncture Site R RAD, Blood Gas Patient Temperature 97.3, Arterial Blood pH 7.43, Arterial Blood Partial Pressure CO2 37, Arterial Blood Partial Pressure O2 63L, Arterial Blood HCO3 25, Arterial Blood Total CO2 25.8, Arterial Blood Oxygen Saturation 95, Arterial Blood Base Excess 0.6, Manjit Test YES-POS, Blood Gas Ventilator Setting YES, Blood Gas Inspired Oxygen 35% 04/23/18 12:15: White Blood Count 8.7, Red Blood Count 3.99L, Hemoglobin 11.9, Hematocrit 37, Mean Corpuscular Volume 93, Mean Corpuscular Hemoglobin 30, Mean Corpuscular Hemoglobin Concent 32, Red Cell Distribution Width 13.1, Platelet Count 67L, Mean Platelet Volume 10.3, Neutrophils (%) (Auto) 94H, Lymphocytes (%) (Auto) 4L , Monocytes (%) (Auto) 1, Eosinophils (%) (Auto) 1, Basophils (%) (Auto) 0, Neutrophils # (Auto) 8.2H, Lymphocytes # (Auto) 0.4L, Monocytes # (Auto) 0.1, Eosinophils # (Auto) 0.1, Basophils # (Auto) 0.0, Sodium Level 136, Potassium Level 3.8, Chloride Level 104, Carbon Dioxide Level 18L, Anion Gap 14, Blood Urea Nitrogen 10, Creatinine 0.76, Estimat Glomerular Filtration Rate > 60, BUN/ Creatinine Ratio 13, Glucose Level 389H, Calcium Level 8.4L, Phosphorus Level 3.2, Magnesium Level 2.2, Corrected Calcium 9.0, Total Bilirubin 0.4, Aspartate Amino Transf (AST/SGOT) 22, Alanine Aminotransferase (ALT/SGPT) 19, Alkaline Phosphatase 70, Troponin I 0.049H, Total Protein 5.7L, Albumin 3.2 04/23/18 17:03: Blood Gas Puncture Site RIGHT RADIAL, Blood Gas Patient Temperature 93.7, Arterial Blood pH 7.38, Arterial Blood Partial Pressure CO2 36, Arterial Blood Partial Pressure O2 183H, Arterial Blood HCO3 21L, Arterial Blood Total CO2 22.7 , Arterial Blood Oxygen Saturation 100, Arterial Blood Base Excess -3.3L, Manjit Test POSITIVE, Blood Gas Ventilator Setting YES, Blood Gas Inspired Oxygen 100% Microbiology 04/21/18 MRSA Screen - Final, Complete MRSA not isolated Assessment/Plan Assessment/Plan Assess & Plan/Chief Complaint 1. Acute Respiratory Failure--still on ventilator, hopefully wean tomorrow 2. Postop Stridor--CT of neck negative, on IV solumedrol 3. Diabetes mellitus--on SSI 4. COPD--stable 5. SVT/V Tach--on cardizem and amiodarone drips and cardiology has been consulted and started digoxin by cardiology 6. Hypotension--stable Clinical Quality Measures Admission Status Admission Dx 1. Post-op stridor with unstable airway--sedated and intubated on ventilator 2. 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 Hypertensive Urgency with SVT--responded to IV cardizem, likely in response to racemic epi 4. Cervical Spinal Stenosis with Anterior C5-C6 fusion--check stat CT of soft tissues to rule out hematoma DVT/VTE Risk/Contraindication: Risk Factor Score Per Nursin RFS Level Per Nursing on Admit: 4+=Very High NANNETTE REVELES DO Apr 23, 2018 18:36
[2018-04-23] MEDS: fentaNYL INJECTION 1,250 MCG in NS (IVPB) 250 ML IV SCH (19:02)
[2018-04-23] MEDS ORDERED: NS IV 500 ML 500 ML IV ONE ×2 (19:15→20:00)
[2018-04-23] MEDS ORDERED: PROPOFOL DRIP (ICU) 100 ML IV ONE (19:31)
[2018-04-23] MEDS: PROPOFOL DRIP (ICU) 100 ML IV SCH (20:24)
[2018-04-23] MEDS: AMIODARONE 450 MG/250 ML D5W EXCEL IV SCH ×2 (20:30)
--- NOTE | 2018-04-23 20:35 | NUR ---
PT 93 DEGREES TYMPANICALLY. WARM BLANKETS AND BEAR HUGGER APPLIED AT THIS TIME. E-ICU NOTIFIED.
--- NOTE | 2018-04-23 20:45 | NUR ---
AMIODARONE DRIP DECREASED FROM 33 ML/HR TO 17 ML/HR AT THIS TIME PER PROTOCOL. DRIP WAS STARTED AT APPROX 1130 TODAY.
[2018-04-23] MEDS: GABAPENTIN 100 MG (NEURONTIN) CAP PO SCH (21:01)
[2018-04-23] MEDS ORDERED: NOREPINEPHRINE 4 MG/4 ML (LEVOPHED) AMP IV ONE (21:06)
[2018-04-23] MEDS ORDERED: NS (IVPB) 250 ML ONE (21:06)
[2018-04-23] MEDS ORDERED: NOREPINEPHRINE 4 MG in NS (IVPB) 250 ML IV SCH (22:00)
[2018-04-24] VITALS (34 sets, daily range): BP systolic 92–116; BP diastolic 57–70
[2018-04-24] MEDS: PROPOFOL DRIP (ICU) 100 ML IV SCH ×4 (01:35→14:47)
[2018-04-24] MEDS: RT-ALBUTEROL/IPRATROPIUM 3 ML (DUONEB) VIAL INH SCH ×6 (02:26→22:51)
[2018-04-24 03:13] LABS: BASOPHILS % (AUTO) 0 % (0-10); EOSINOPHILS % (AUTO) 0 % (0-10); HEMATOCRIT 35 % (35-52); HEMOGLOBIN 11.8 G/DL (11.5-16.0); LYMPHOCYTES # (AUTO) 0.6 X 10^3 (1.0-4.0); LYMPHOCYTES % (AUTO) 3 % (12-44); MEAN CORPUSCULAR HEMOGLOBIN 30 PG (25-34); MEAN CORPUSCULAR HGB CONC 34 G/DL (32-36); MEAN CORPUSCULAR VOLUME 91 FL (80-99); MEAN PLATELET VOLUME 9.8 FL (7.4-10.4); MONOCYTES # (AUTO) 0.6 X 10^3 (0.0-1.0); MONOCYTES % (AUTO) 3 % (0-12); NEUTROPHILS # (AUTO) 16.7 X 10^3 (1.8-7.8); NEUTROPHILS % (AUTO) 94 % (42-75); PLATELET COUNT 225 10^3/uL (130-400); RED CELL DISTRIBUTION WIDTH 13.2 % (10.0-14.5); WHITE BLOOD COUNT 17.9 10^3/uL (4.3-11.0)
[2018-04-24 03:28] LABS: ABG BASE EXCESS -1.3 MMOL/L (-2.5-2.5); ABG OXYGEN SATURATION 94 % (94-100); ABG PCO2 33 MMHG (35-45); ABG PH 7.44 (7.37-7.43); ABG PO2 57 MMHG (79-93); ABG TCO2 23.5 MMOL/L (21.0-31.0); ALLENS TEST POSITIVE; VENTILATOR YES
[2018-04-24] MEDS: NS IV 1000 ML 1,000 ML IV SCH ×2 (03:28→05:04)
[2018-04-24 03:29] LABS: PATIENT TEMP 96.9
[2018-04-24] MEDS: MULTIVIT W/MINERALS TAB (THERAGRAN M) PO SCH (03:29)
[2018-04-24] MEDS: POTASSIUM CL 10MEQ/50ML IVPB 50 ML IV SCH (03:29)
[2018-04-24] MEDS: MAGNESIUM 1 GM/100 ML IVPB 100 ML IV SCH (03:29)
[2018-04-24] MEDS: KCL 20 MEQ TAB (K-DUR) PO SCH (03:29)
[2018-04-24 03:44] LABS: BUN/CREATININE RATIO 16; CALCIUM 8.1 MG/DL (8.5-10.1); CARBON DIOXIDE 21 MMOL/L (21-32); CHLORIDE 110 MMOL/L (98-107); CREATININE SERUM 0.67 MG/DL (0.60-1.30); GFR ESTIMATED > 60; GLUCOSE 248 MG/DL (70-105); PHOSPHORUS 1.5 MG/DL (2.3-4.7); POTASSIUM 3.7 MMOL/L (3.6-5.0); SODIUM 139 MMOL/L (135-145)
[2018-04-24] MEDS: AMIODARONE 450 MG/250 ML D5W EXCEL IV SCH ×2 (05:03)
[2018-04-24] MEDS: methylPREDNISolone 40 MG/ML (Solu-MEDROL) VIAL IV SCH ×3 (05:14→17:37)
[2018-04-24] MEDS: inSUlin ASPART (NovoLOG) 1 UNIT/0.01 ML (CHARGE PER UNIT) SQ SCH ×5 (05:14→22:08)
[2018-04-24] MEDS ORDERED: POTASSIUM PHOSPHATE INJ 30 MM in NS (IVPB) 250 ML IV ONE (06:00)
--- NOTE | 2018-04-24 06:14 | Pulmonary Progress Note ---
Subjective Time Seen by a Provider: 06:15 Subjective/Events-last exam PT has been hypotensive, and hypothermic with temp down to 87 temporal and 93 tympanic. She is also requiring more oxygen today. Sepsis Event Evaluation Height, Weight, BMI Height: 5'5.00" Weight: 220lbs. 0.0oz. 99.188170xw; 36.6 BMI Method:Estimated Exam Exam Vital Signs Date Time Temp Pulse Resp B/P (MAP) Pulse Ox O2 Delivery O2 Flow Rate FiO2 04/24/18 05:28 96.9 64 16 111/64 98 Mechanical Ventilator 55.00 04/24/18 05:00 64 16 111/64 (80) 98 Mechanical Ventilator 55.00 04/24/18 04:00 71 20 112/65 (81) 99 Mechanical Ventilator 55.00 04/24/18 04:00 96.9 04/24/18 04:00 96 Mechanical Ventilator 55 04/24/18 03:00 70 18 107/60 (76) 97 Mechanical Ventilator 55.00 04/24/18 02:27 64 20 97 55 04/24/18 02:00 64 21 110/62 (78) 98 Mechanical Ventilator 55.00 04/24/18 01:35 96.6 66 20 105/60 96 Mechanical Ventilator 55.00 04/24/18 01:00 65 20 105/60 (75) 96 Mechanical Ventilator 55.00 04/24/18 01:00 66 04/24/18 00:00 90 20 92/64 (73) 95 Mechanical Ventilator 55.00 04/24/18 00:00 95 Mechanical Ventilator 55 04/23/18 23:35 Mechanical Ventilator 55.00 04/23/18 23:18 96.6 04/23/18 23:00 80 18 95/67 (76) 89 Mechanical Ventilator 50.00 04/23/18 22:41 80 18 94 50 04/23/18 22:00 85 18 119/80 (93) 96 Mechanical Ventilator 50.00 04/23/18 21:48 95.0 04/23/18 21:00 83 17 99/67 (78) 97 Mechanical Ventilator 50.00 04/23/18 20:45 87/57 (67) 04/23/18 20:35 Mechanical Ventilator 50.00 04/23/18 20:31 80 22 96 50 04/23/18 20:24 93.0 83 8 92/74 94 Mechanical Ventilator 35.00 04/23/18 20:00 97 Mechanical Ventilator 35 04/23/18 20:00 83 8 92/74 (80) 94 Mechanical Ventilator 35.00 04/23/18 19:58 93.0 Mechanical Ventilator 35.00 04/23/18 19:55 87.8 04/23/18 19:00 112 20 102/67 (79) 95 Mechanical Ventilator 35.00 04/23/18 19:00 83 04/23/18 18:59 82 18 99 100 04/23/18 18:08 106 13 90/63 (72) 95 Mechanical Ventilator 35.00 04/23/18 17:05 98 13 97/67 (77) 100 Mechanical Ventilator 35.00 04/23/18 16:04 109 17 102/68 (79) 100 Mechanical Ventilator 35.00 04/23/18 16:00 97 Mechanical Ventilator 35 04/23/18 15:23 97.2 04/23/18 15:00 97.4 04/23/18 15:00 104 27 100/85 (90) 96 Mechanical Ventilator 35.00 04/23/18 14:24 116 21 100 35 04/23/18 14:00 113 17 113/77 (89) 100 Mechanical Ventilator 35.00 04/23/18 13:00 115 19 102/83 (89) 100 Mechanical Ventilator 35.00 04/23/18 13:00 129 04/23/18 12:00 130 17 118/65 (82) 100 Mechanical Ventilator 35.00 04/23/18 12:00 97 Mechanical Ventilator 35 04/23/18 11:00 98.0 04/23/18 11:00 92 18 148/79 (102) 96 Mechanical Ventilator 35.00 04/23/18 10:18 93 19 95 35 04/23/18 10:00 98 20 141/75 (97) 95 Mechanical Ventilator 35.00 04/23/18 09:00 92 23 86/77 (80) 94 Mechanical Ventilator 35.00 04/23/18 08:42 89 18 95 35 04/23/18 08:00 97 Mechanical Ventilator 35 04/23/18 08:00 87 18 142/74 (96) 95 Mechanical Ventilator 35.00 04/23/18 07:00 82 17 147/77 (100) 97 Mechanical Ventilator 35.00 04/23/18 07:00 83 I & O 04/24/18 07:00 Output Total 1375 ml Balance -1375 ml Height & Weight Height: 5'5.00" Weight: 220lbs. 0.0oz. 99.335326gi; 36.6 BMI Method:Estimated General Appearance: No Apparent Distress HEENT: Other (ET tube in place ) Neck: Supple Respiratory: Lungs Clear Cardiovascular: Systolic Murmur, Tachycardia Capillary Refill: Less Than 3 Seconds Gastrointestinal: normal bowel sounds, non tender, soft Extremity: Non Tender, No Calf Tenderness, No Pedal Edema Neurologic/Psychiatric: Alert (but still on ventilator ) Skin: Warm/Dry Lymphatic: No Adenopathy Results Lab Laboratory Tests 04/23/18 03:09 04/23/18 12:15 04/24/18 03:03 Assessment/Plan Assessment/Plan Acute respiratory failure secondary to probable vocal cord spasms r/o recurrent laryngeal nerve damage - Will leave on vent for now --decrease RR to 15 and titrate Fi02 -start Jevity 1.5 -Check BNP -solumedrol 40 IV Q6 -- Decrease to Q12 -Diprivan/fentanyl S/p C5-C6 fusion 04/22 -CT Neck reviewed no hematoma Hypotension with sinus tachycardia -monitor close -Repeat bolus Hypothermia -Check TSH, free T4, free T3 -Check chicas cultures Hyperglycemia -increase Levemir to 46 units daily -Change SSI to Q4 -May need insulin gtt Afib RVR - now converted -Amio, digoxin, cardizem -Cardiology following Leukocytosis - prost surgical Hx of laryngal spasms HTN urgency -Monitor HX of cardiac arrest 2010 Last EF 50-55% CAD Obesity THERESA COOK DO Apr 24, 2018 06:14
[2018-04-24 07:08] LABS: BACTERIA,URINE TRACE /HPF; BILIRUBIN,URINE NEGATIVE (NEGATIVE); CLARITY,URINE CLEAR; COLOR,URINE YELLOW; GLUCOSE, URINE (UA) NEGATIVE (NEGATIVE); KETONES,URINE NEGATIVE (NEGATIVE); LEUKOCYTE ESTERASE ,URINE NEGATIVE (NEGATIVE); NITRITE,URINE NEGATIVE (NEGATIVE); PH,URINE 6.5 (5-9); PROTEIN,URINE NEGATIVE (NEGATIVE); UROBILINOGEN,URINE NORMAL (NORMAL)
[2018-04-24 07:41] LABS: FREE T4 (FREE THYROXINE) 1.44 NG/DL (0.70-1.48)
--- NOTE | 2018-04-24 07:58 | Diagnostic Imaging Report ---
EXAM: CHEST 1 VIEW, AP/PA ONLY INDICATION: Respiratory failure. COMPARISON: Chest radiograph 04/23/2018. FINDINGS: Low lung volumes. Normal heart size and central pulmonary vascularity. Dense consolidation in the right lung base is new since the prior exam. ETT tip midway between the level of the clavicle and chris. AICD. Right IJ CVC tip mid to upper SVC. IMPRESSION: 1. New dense consolidation in the right lung base. 2. Support lines in the expected positions. Dictated by: Dictated on workstation # [id number]
--- NOTE | 2018-04-24 08:40 | Progress Note-Cardiology ---
Cardiology SOAP Progress Note Subjective: Intubated and sedated Objective: I&O/Vital Signs 04/28/18 04/28/18 04/28/18 04/29/18 20:25 22:38 23:25 01:00 Temp 98.0 Pulse 60 60 Resp 20 B/P (MAP) 109/57 (74) Pulse Ox 95 95 95 O2 Delivery High Flow N/C High Flow N/C High Flow N/C O2 Flow Rate 4.00 4.00 4.00 04/29/18 04/29/18 04/29/18 03:05 03:48 07:16 Temp 96.8 Pulse 67 Resp 20 B/P (MAP) 110/59 (76) Pulse Ox 95 95 82 O2 Delivery High Flow N/C High Flow N/C Room Air O2 Flow Rate 4.00 4.00 04/29/18 00:00 Intake Total 1470 ml Output Total 2875 ml Balance -1405 ml Weight (Pounds): 220 Weight (Ounces): 0.0 Weight (Calculated Kilograms): 99.775327 Constitutional: other (intubated, sedated and on mech vent) Respiratory: No accessory muscle use; other (fair to good bilat air entry) Cardiovascular: irregularly irregular, S1 and S2, systolic murmur (soft WOLF at card base) Gastrointestional: soft; No guarding, No rebound; audible bowel sounds Extremities: No clubbing, No cyanosis, No significant edema Neurologic/Psychiatric: other (intubated, sedated, not able to cooperate with a neuro exam) Skin: No cool; diaphoresis; No rash on exposed areas, No ulcerations on exposed areas Results/Procedures: Labs Laboratory Tests 04/28/18 11:18: Glucometer 166H 04/28/18 15:59: Glucometer 178H 04/28/18 19:58: Glucometer 161H 04/29/18 05:25: White Blood Count 13.9H, Red Blood Count 4.00L, Hemoglobin 12.0, Hematocrit 37, Mean Corpuscular Volume 93, Mean Corpuscular Hemoglobin 30, Mean Corpuscular Hemoglobin Concent 32, Red Cell Distribution Width 13.5, Platelet Count 260, Mean Platelet Volume 9.0, Neutrophils (%) (Auto) 71, Lymphocytes (%) (Auto) 20, Monocytes (%) (Auto) 7, Eosinophils (%) (Auto) 2, Basophils (%) (Auto) 0, Neutrophils # (Auto) 9.9H, Lymphocytes # (Auto) 2.8, Monocytes # (Auto) 0.9, Eosinophils # (Auto) 0.3, Basophils # (Auto) 0.0, Sodium Level 138, Potassium Level 3.4L, Chloride Level 97L, Carbon Dioxide Level 31, Anion Gap 10, Blood Urea Nitrogen 15, Creatinine 0.66, Estimat Glomerular Filtration Rate > 60, BUN/ Creatinine Ratio 23, Glucose Level 79, Calcium Level 8.6, Phosphorus Level 5.2H , Magnesium Level 1.6L Microbiology 04/24/18 Blood Culture - Preliminary, Resulted No growth 04/24/18 Gram Stain - Final, Complete 04/24/18 Sputum Culture - Final, Complete Usual upper respiratory gil Procedures NAME: BRAYDON ARBOLEDA [facility] REC#: [id number] PT STATUS: ADM IN : 1945 PHYSICIAN: THERESA SALEEM DO ADMIT DATE: 04/21/18/ICU Draft Date of Exam:04/24/18 CHEST 1 VIEW, AP/PA ONLY EXAM: CHEST 1 VIEW, AP/PA ONLY INDICATION: Respiratory failure. COMPARISON: Chest radiograph 04/23/2018. FINDINGS: Low lung volumes. Normal heart size and central pulmonary vascularity. Dense consolidation in the right lung base is new since the prior exam. ETT tip midway between the level of the clavicle and chris. AICD. Right IJ CVC tip mid to upper SVC. IMPRESSION: 1. New dense consolidation in the right lung base. 2. Support lines in the expected positions. Dictated on workstation # [id number] Dict: 04/24/18 [id number] Trans: 04/24/18 0757 [facility] [id number] Interpreted by: ANA GORDILLO MD Electronically signed by: A/P: Assessment: PAF with RVR associated with hypotension - converted to SR on 04-24-18 S/p spinal fusion surgery and post-op resp failure requiring intubation and mech vent Echo of 04/23/18: mod concentric LVH, LVEF 65-70%, mild left atrial enlargement, PASP 30-35 mmHg Electrolyte abnormalities - corrected Previous h/o paroxysmal atrial tach and palpitations Chronic migraine headaches. Chronic body pains and fibromyalgia. H/o labile hypertension and postural hypotension History of perioperative bradycardia (asystole) and tachycardia (ventricular fibrillation). 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 MPI of Nov 2017 showed no evidence of significant myocardial ischemia or infarction. LVEF 78% Chronic pain syndrome. Obesity with a body mass index of approximately 36 The patient has been intolerant to statin therapy on account of chronic pain syndrome. DM II, insulin requiring, managed by [facility] philanthropy officer Cough of undetermined etiology. Dr Saleem following and has diagnosed restrictive lung disease Suspected LION - awaiting sleep studies at [facility] Bilateral intermittent leg swelling, chornic. Venous insuff study of 02/15/16 did not show DVT or reflux in the deep venous system or valvular insuff of greater or small saphenous system or AASV Less than 40% DANIELLE stenosis, 40-59% LICA stenosis on carotid u/s of 02/03/16 Plan: * VT and PAF with amio * Converted to SR early this morning * Dilt for vent rate control * Not suitable for anticoag at this time (freshly post spinal surgery) * iv fluids for bp support * Remains intubated YASMANI HAMILTON Apr 24, 2018 08:40
--- NOTE | 2018-04-24 08:44 | Physical Therapy Progress Note ---
Therapy Progress Note Patient continues to have a decline in medical status. PT will require new physicians orders to evaluate when medically stable. IRENE NEGRO PT Apr 24, 2018 08:44
[2018-04-24] MEDS: RT-BUDESONIDE NEBS 0.5 MG/2ML (PULMICORT) AMP INH SCH ×2 (08:53→20:17)
[2018-04-24] MEDS: FAMOTIDINE 20MG/2ML IV (PEPCID) IVP SCH ×2 (09:04→22:09)
[2018-04-24] MEDS: meTOprolol TARTRATE 50 MG (LOPRESSOR) TAB PO SCH ×2 (09:06→22:12)
[2018-04-24] MEDS: inSUlin DETERMIR 1 UNIT/0.01 ML (LEVEMIR) CHARGE PER UNIT SQ SCH (09:06)
[2018-04-24] MEDS: SENNOSIDES 8.6 MG (SENOKOT) TAB PO SCH ×2 (09:06→22:11)
[2018-04-24] MEDS: GABAPENTIN 300 MG (NEURONTIN) CAP PO SCH ×2 (09:06→22:11)
[2018-04-24] MEDS: busPIRone 5 MG (BUSPAR) TAB PO SCH ×3 (09:07→22:11)
--- NOTE | 2018-04-24 09:59 | NUR ---
TUBE FEEDING RECOMMENDATIONS: RECOMMEND CHANGE TO PULMOCARE @ 50 ML/HR TO PROVIDE 1800 KCAL, 75 GRAMS PROTEIN, 942 ML FREE WATER. PT WILL NEED ADDITIONAL 1700 ML FLUID PER DAY BETWEEN FLUSHES AND IVF.
--- NOTE | 2018-04-24 11:02 | Occ Therapy Progress Note ---
Therapy Progress Note Will continue to monitor pt. Pt. on vent. Will assess when extubated. 11:00 ERICKSON UGALDE OT Apr 24, 2018 11:02
[2018-04-24] MEDS: DILTIAZEM 125 MG/NS 100 ML IV SCH ×2 (13:41)
[2018-04-24] MEDS: oxyCODONE/APAP 5/325MG (PERCOCET 5) TABLET PO PRN (14:45)
[2018-04-24] MEDS: fentaNYL INJECTION 100 MCG/2 ML AMP IV PRN (14:46)
[2018-04-24] MEDS: DEXMEDETOMIDINE INJECTION 1,000 MCG in NS (IVPB) 250 ML IV SCH (14:47)
--- NOTE | 2018-04-24 16:36 | Progress Note-Cardiology ---
Cardiology SOAP Progress Note Subjective: Intubated, sedated, on mech vent. Son by bedside Objective: I&O/Vital Signs 04/24/18 04/24/18 04/24/18 04/24/18 05:00 05:28 06:00 06:09 Temp 96.9 Pulse 64 64 63 67 Resp 16 16 19 25 B/P (MAP) 111/64 (80) 111/64 111/63 (79) Pulse Ox 98 98 97 96 O2 Delivery Mechanical Ventilator Mechanical Ventilator Mechanical Ventilator O2 Flow Rate 55.00 55.00 35.00 FiO2 35 04/24/18 04/24/18 04/24/18 04/24/18 07:00 07:00 07:00 08:00 Temp 98.7 Pulse 78 70 78 Resp 16 26 B/P (MAP) 98/70 (79) 106/62 (77) Pulse Ox 93 95 O2 Delivery Mechanical Ventilator Mechanical Ventilator O2 Flow Rate 35.00 35.00 04/24/18 04/24/18 04/24/18 04/24/18 08:00 08:53 09:00 09:07 Pulse 72 73 Resp 22 16 B/P (MAP) 116/64 (81) 116/64 Pulse Ox 96 96 95 O2 Delivery Mechanical Ventilator Mechanical Ventilator O2 Flow Rate 35.00 FiO2 35 35 04/24/18 04/24/18 04/24/18 04/24/18 10:00 10:09 11:00 12:00 Temp 98.8 Pulse 60 60 60 Resp 20 21 B/P (MAP) 104/62 (76) 96/57 (70) Pulse Ox 96 95 92 O2 Delivery Mechanical Ventilator Mechanical Ventilator O2 Flow Rate 35.00 35.00 FiO2 35 04/24/18 04/24/18 04/24/18 04/24/18 12:00 12:00 12:35 13:00 Pulse 60 60 60 Resp 22 22 B/P (MAP) 96/60 (72) Pulse Ox 96 91 91 O2 Delivery Mechanical Ventilator Mechanical Ventilator O2 Flow Rate 35.00 FiO2 35 35 04/24/18 04/24/18 04/24/18 04/24/18 13:00 14:00 14:47 15:00 Pulse 60 60 60 Resp 18 19 B/P (MAP) 96/61 (73) 104/66 (79) 102/60 97/61 (73) Pulse Ox 92 92 92 O2 Delivery Mechanical Ventilator Mechanical Ventilator Mechanical Ventilator O2 Flow Rate 35.00 35.00 35.00 04/24/18 04/24/18 15:23 16:00 Pulse 60 Resp 17 Pulse Ox 92 96 O2 Delivery Mechanical Ventilator FiO2 35 35 04/24/18 00:00 Intake Total 100 ml Output Total 550 ml Balance -450 ml Weight (Pounds): 220 Weight (Ounces): 0.0 Weight (Calculated Kilograms): 99.585352 Constitutional: other (intubated, sedated and on mech vent) Respiratory: No accessory muscle use; other (fair to good bilat air entry) Cardiovascular: irregularly irregular, S1 and S2, systolic murmur (soft WOLF at card base) Gastrointestional: soft; No guarding, No rebound; audible bowel sounds Extremities: No clubbing, No cyanosis, No significant edema Neurologic/Psychiatric: other (intubated, sedated, not able to cooperate with a neuro exam) Skin: No cool; diaphoresis; No rash on exposed areas, No ulcerations on exposed areas Results/Procedures: Labs Laboratory Tests 04/23/18 17:03: Blood Gas Puncture Site RIGHT RADIAL, Blood Gas Patient Temperature 93.7, Arterial Blood pH 7.38, Arterial Blood Partial Pressure CO2 36, Arterial Blood Partial Pressure O2 183H, Arterial Blood HCO3 21L, Arterial Blood Total CO2 22.7 , Arterial Blood Oxygen Saturation 100, Arterial Blood Base Excess -3.3L, Manjit Test POSITIVE, Blood Gas Ventilator Setting YES, Blood Gas Inspired Oxygen 100% 04/23/18 18:11: Glucometer 308H 04/23/18 19:30: Troponin I 0.067H 04/23/18 23:30: Glucometer 293H 04/24/18 03:03: White Blood Count 17.9H, Red Blood Count 3.89L, Hemoglobin 11.8, Hematocrit 35, Mean Corpuscular Volume 91, Mean Corpuscular Hemoglobin 30, Mean Corpuscular Hemoglobin Concent 34, Red Cell Distribution Width 13.2, Platelet Count 225, Mean Platelet Volume 9.8, Neutrophils (%) (Auto) 94H, Lymphocytes (%) (Auto) 3L , Monocytes (%) (Auto) 3, Eosinophils (%) (Auto) 0, Basophils (%) (Auto) 0, Neutrophils # (Auto) 16.7H, Lymphocytes # (Auto) 0.6L, Monocytes # (Auto) 0.6, Eosinophils # (Auto) 0.0, Basophils # (Auto) 0.0, Sodium Level 139, Potassium Level 3.7, Chloride Level 110H, Carbon Dioxide Level 21, Anion Gap 8, Blood Urea Nitrogen 11, Creatinine 0.67, Estimat Glomerular Filtration Rate > 60, BUN/ Creatinine Ratio 16, Glucose Level 248H, Calcium Level 8.1L, Phosphorus Level 1.5L, Magnesium Level 2.0, Troponin I 0.085H 04/24/18 03:15: Blood Gas Puncture Site LEFT RADIAL, Blood Gas Patient Temperature 96.9, Arterial Blood pH 7.44H, Arterial Blood Partial Pressure CO2 33L, Arterial Blood Partial Pressure O2 57L, Arterial Blood HCO3 23, Arterial Blood Total CO2 23.5, Arterial Blood Oxygen Saturation 94, Arterial Blood Base Excess -1.3, Manjit Test POSITIVE, Blood Gas Ventilator Setting YES, Blood Gas Inspired Oxygen 55% 04/24/18 06:44: Lactic Acid Level 1.52, B-Type Natriuretic Peptide 146.3H, Thyroid Stimulating Hormone (TSH) 0.14L, Free Thyroxine 1.44 04/24/18 06:45: Urine Color YELLOW, Urine Clarity CLEAR, Urine pH 6.5, Urine Specific [place] 1.010L, Urine Protein NEGATIVE, Urine Glucose (UA) NEGATIVE, Urine Ketones NEGATIVE, Urine Nitrite NEGATIVE, Urine Bilirubin NEGATIVE, Urine Urobilinogen NORMAL, Urine Leukocyte Esterase NEGATIVE, Urine RBC (Auto) NEGATIVE, Urine RBC NONE, Urine WBC NONE, Urine Squamous Epithelial Cells NONE, Urine Crystals NONE , Urine Bacteria TRACE, Urine Casts NONE, Urine Mucus NEGATIVE, Urine Culture Indicated NO 04/24/18 09:04: Glucometer 193H 04/24/18 12:13: Glucometer 125H Microbiology 04/24/18 Gram Stain, Resulted Pending 04/24/18 Sputum Culture - Preliminary, Resulted Culture In Progress Laboratory Tests 04/23/18 03:09 04/23/18 12:15 04/24/18 03:03 A/P: Assessment: PAF with RVR associated with hypotension - converted to NSR on 04-24-18 S/p spinal fusion surgery and post-op resp failure requiring intubation and mech vent Echo of 04/23/18: mod concentric LVH, LVEF 65-70%, mild left atrial enlargement, PASP 30-35 mmHg Electrolyte abnormalities - corrected Previous h/o paroxysmal atrial tach and palpitations Chronic migraine headaches. Chronic body pains and fibromyalgia. H/o labile hypertension and postural hypotension History of perioperative bradycardia (asystole) and tachycardia (ventricular fibrillation). 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 MPI of Nov 2017 showed no evidence of significant myocardial ischemia or infarction. LVEF 78% Chronic pain syndrome. Obesity with a body mass index of approximately 36 The patient has been intolerant to statin therapy on account of chronic pain syndrome. DM II, insulin requiring, managed by [facility] bods developer Cough of undetermined etiology. Dr Saleem following and has diagnosed restrictive lung disease Suspected LION - awaiting sleep studies at [facility] Bilateral intermittent leg swelling, chornic. Venous insuff study of 02/15/16 did not show DVT or reflux in the deep venous system or valvular insuff of greater or small saphenous system or AASV Less than 40% DANIELLE stenosis, 40-59% LICA stenosis on carotid u/s of 02/03/16 Plan: * Amio for maintenance of rhythm * Dilt for vent rate control, in case PAF recurs * Not suitable for anticoag at this time (freshly post spinal surgery) * iv fluids for bp support * I spoke with her son and answered CV-related questions ULI YOO MD FACP [facility] CCDS Apr 24, 2018 16:36
[2018-04-24] MEDS: PRAMIPEXOLE 0.5 MG TAB (MIRAPEX) PO SCH (17:38)
[2018-04-24] MEDS: fentaNYL INJECTION 1,250 MCG in NS (IVPB) 250 ML IV SCH (18:57)
[2018-04-24] MEDS ORDERED: ENOXAPARIN 100 MG/1 ML (LOVENOX) SYR SC SCH (19:15)
[2018-04-24] MEDS ORDERED: ARTIFICIAL TEARS OINT (LACRI-LUBE) 3.5 GM TUBE OU PRN (19:15)
--- NOTE | 2018-04-24 21:58 | Progress Note (SOAP) ---
Subjective Date Seen by a Provider: Apr 24, 2018 Time Seen by a Provider: 12:45 Subjective/Events-last exam Fwup acute respiratory failure, postop stridor, tachycardia, COPD, diabetes mellitus II, SVT/V Tach. Had hypotension and hypothermia last night so weaning on hold today. Son at bedside and discussed care at length. Focused Exam Lactate Level 04/24/18 06:44: Lactic Acid Level 1.52 Objective Exam Vital Signs Date Time Temp Pulse Resp B/P (MAP) Pulse Ox O2 Delivery O2 Flow Rate FiO2 04/24/18 20:17 76 24 90 35 04/24/18 20:00 95 Mechanical Ventilator 35 04/24/18 19:39 98.3 Mechanical Ventilator 35.00 04/24/18 18:04 66 22 92 35 04/24/18 18:00 66 20 111/65 (80) 91 Mechanical Ventilator 35.00 04/24/18 17:00 65 20 116/68 (84) 92 Mechanical Ventilator 35.00 04/24/18 16:47 67 23 92 35 04/24/18 16:00 66 22 97/59 (72) 91 Mechanical Ventilator 35.00 04/24/18 16:00 96 Mechanical Ventilator 35 04/24/18 15:23 60 17 92 35 04/24/18 15:00 60 19 97/61 (73) 92 Mechanical Ventilator 35.00 04/24/18 14:47 102/60 04/24/18 14:00 60 23 104/66 (79) 92 Mechanical Ventilator 35.00 04/24/18 13:00 60 18 96/61 (73) 92 Mechanical Ventilator 35.00 04/24/18 13:00 60 04/24/18 12:35 60 22 91 35 04/24/18 12:00 60 22 96/60 (72) 91 Mechanical Ventilator 35.00 04/24/18 12:00 96 Mechanical Ventilator 35 04/24/18 12:00 98.8 04/24/18 11:00 60 21 96/57 (70) 92 Mechanical Ventilator 35.00 04/24/18 10:09 60 21 95 35 04/24/18 10:00 60 20 104/62 (76) 96 Mechanical Ventilator 35.00 04/24/18 09:07 116/64 04/24/18 09:00 73 16 116/64 (81) 95 Mechanical Ventilator 35.00 04/24/18 08:53 72 22 96 35 04/24/18 08:00 96 Mechanical Ventilator 35 04/24/18 08:00 78 26 106/62 (77) 95 Mechanical Ventilator 35.00 04/24/18 07:00 70 16 98/70 (79) 93 Mechanical Ventilator 35.00 04/24/18 07:00 98.7 04/24/18 07:00 78 04/24/18 06:09 67 25 96 35 04/24/18 06:00 63 19 111/63 (79) 97 Mechanical Ventilator 35.00 04/24/18 05:28 96.9 64 16 111/64 98 Mechanical Ventilator 55.00 04/24/18 05:00 64 16 111/64 (80) 98 Mechanical Ventilator 55.00 04/24/18 04:00 71 20 112/65 (81) 99 Mechanical Ventilator 55.00 04/24/18 04:00 96.9 04/24/18 04:00 96 Mechanical Ventilator 55 04/24/18 03:00 70 18 107/60 (76) 97 Mechanical Ventilator 55.00 04/24/18 02:27 64 20 97 55 04/24/18 02:00 64 21 110/62 (78) 98 Mechanical Ventilator 55.00 04/24/18 01:35 96.6 66 20 105/60 96 Mechanical Ventilator 55.00 04/24/18 01:00 65 20 105/60 (75) 96 Mechanical Ventilator 55.00 04/24/18 01:00 66 04/24/18 00:00 90 20 92/64 (73) 95 Mechanical Ventilator 55.00 04/24/18 00:00 95 Mechanical Ventilator 55 04/23/18 23:35 Mechanical Ventilator 55.00 04/23/18 23:18 96.6 04/23/18 23:00 80 18 95/67 (76) 89 Mechanical Ventilator 50.00 04/23/18 22:41 80 18 94 50 04/23/18 22:00 85 18 119/80 (93) 96 Mechanical Ventilator 50.00 I & O 04/24/18 07:00 Intake Total 1550 ml Output Total 1375 ml Balance 175 ml Capillary Refill : Less Than 3 SecondsLess Than 3 Seconds General Appearance: Other (sedated on ventilator) Neck: Supple Respiratory: Lungs Clear Cardiovascular: Regular Rate, Rhythm Gastrointestinal: normal bowel sounds, soft Extremity: Non Tender, No Calf Tenderness, Swelling Neurologic/Psychiatric: Other (sedated on ventilator) Skin: Warm/Dry Results Lab Laboratory Tests 04/23/18 23:30: Glucometer 293H 04/24/18 03:03: White Blood Count 17.9H, Red Blood Count 3.89L, Hemoglobin 11.8, Hematocrit 35, Mean Corpuscular Volume 91, Mean Corpuscular Hemoglobin 30, Mean Corpuscular Hemoglobin Concent 34, Red Cell Distribution Width 13.2, Platelet Count 225, Mean Platelet Volume 9.8, Neutrophils (%) (Auto) 94H, Lymphocytes (%) (Auto) 3L , Monocytes (%) (Auto) 3, Eosinophils (%) (Auto) 0, Basophils (%) (Auto) 0, Neutrophils # (Auto) 16.7H, Lymphocytes # (Auto) 0.6L, Monocytes # (Auto) 0.6, Eosinophils # (Auto) 0.0, Basophils # (Auto) 0.0, Sodium Level 139, Potassium Level 3.7, Chloride Level 110H, Carbon Dioxide Level 21, Anion Gap 8, Blood Urea Nitrogen 11, Creatinine 0.67, Estimat Glomerular Filtration Rate > 60, BUN/ Creatinine Ratio 16, Glucose Level 248H, Calcium Level 8.1L, Phosphorus Level 1.5L, Magnesium Level 2.0, Troponin I 0.085H 04/24/18 03:15: Blood Gas Puncture Site LEFT RADIAL, Blood Gas Patient Temperature 96.9, Arterial Blood pH 7.44H, Arterial Blood Partial Pressure CO2 33L, Arterial Blood Partial Pressure O2 57L, Arterial Blood HCO3 23, Arterial Blood Total CO2 23.5, Arterial Blood Oxygen Saturation 94, Arterial Blood Base Excess -1.3, Manjit Test POSITIVE, Blood Gas Ventilator Setting YES, Blood Gas Inspired Oxygen 55% 04/24/18 06:44: Lactic Acid Level 1.52, B-Type Natriuretic Peptide 146.3H, Thyroid Stimulating Hormone (TSH) 0.14L, Free Thyroxine 1.44 04/24/18 06:45: Urine Color YELLOW, Urine Clarity CLEAR, Urine pH 6.5, Urine Specific [place] 1.010L, Urine Protein NEGATIVE, Urine Glucose (UA) NEGATIVE, Urine Ketones NEGATIVE, Urine Nitrite NEGATIVE, Urine Bilirubin NEGATIVE, Urine Urobilinogen NORMAL, Urine Leukocyte Esterase NEGATIVE, Urine RBC (Auto) NEGATIVE, Urine RBC NONE, Urine WBC NONE, Urine Squamous Epithelial Cells NONE, Urine Crystals NONE , Urine Bacteria TRACE, Urine Casts NONE, Urine Mucus NEGATIVE, Urine Culture Indicated NO 04/24/18 09:04: Glucometer 193H 04/24/18 12:13: Glucometer 125H 04/24/18 17:32: Glucometer 170H Microbiology 04/24/18 Gram Stain, Resulted Pending 04/24/18 Sputum Culture - Preliminary, Resulted Culture In Progress Assessment/Plan Assessment/Plan Assess & Plan/Chief Complaint 1. Acute Respiratory Failure--still on ventilator, hopefully wean tomorrow 2. Postop Stridor--CT of neck negative, on IV solumedrol 3. Diabetes mellitus--on SSI 4. COPD--stable 5. SVT/V Tach--on cardizem and amiodarone drips as well as loaded with digoxin and cardiology consulted 6. Hypotension/Hypothermia--improved this AM Clinical Quality Measures Admission Status Admission Dx 1. Post-op stridor with unstable airway--sedated and intubated on ventilator 2. 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 Hypertensive Urgency with SVT--responded to IV cardizem, likely in response to racemic epi 4. Cervical Spinal Stenosis with Anterior C5-C6 fusion--check stat CT of soft tissues to rule out hematoma DVT/VTE Risk/Contraindication: Risk Factor Score Per Nursin RFS Level Per Nursing on Admit: 4+=Very High NANNETTE REVELES DO Apr 24, 2018 21:58
[2018-04-24] MEDS: ENOXAPARIN 100 MG/1 ML (LOVENOX) SYR SC SCH (22:07)
[2018-04-24] MEDS: GABAPENTIN 100 MG (NEURONTIN) CAP PO SCH (22:11)
[2018-04-25] VITALS (28 sets, daily range): BP systolic 107–174; BP diastolic 60–101
[2018-04-25] MEDS: inSUlin ASPART (NovoLOG) 1 UNIT/0.01 ML (CHARGE PER UNIT) SQ SCH ×7 (00:18→23:45)
[2018-04-25] MEDS: methylPREDNISolone 40 MG/ML (Solu-MEDROL) VIAL IV SCH ×5 (00:18→23:47)
[2018-04-25] MEDS: PROPOFOL DRIP (ICU) 100 ML IV SCH ×2 (00:21→04:59)
[2018-04-25] MEDS: RT-ALBUTEROL/IPRATROPIUM 3 ML (DUONEB) VIAL INH SCH ×5 (02:30→19:25)
[2018-04-25] MEDS: DEXMEDETOMIDINE INJECTION 1,000 MCG in NS (IVPB) 250 ML IV SCH ×2 (03:08→04:59)
[2018-04-25 03:26] LABS: BASOPHILS % (AUTO) 0 % (0-10); EOSINOPHILS % (AUTO) 0 % (0-10); HEMATOCRIT 35 % (35-52); HEMOGLOBIN 11.4 G/DL (11.5-16.0); LYMPHOCYTES # (AUTO) 0.8 X 10^3 (1.0-4.0); LYMPHOCYTES % (AUTO) 6 % (12-44); MEAN CORPUSCULAR HEMOGLOBIN 30 PG (25-34); MEAN CORPUSCULAR HGB CONC 33 G/DL (32-36); MEAN CORPUSCULAR VOLUME 92 FL (80-99); MEAN PLATELET VOLUME 9.8 FL (7.4-10.4); MONOCYTES # (AUTO) 0.4 X 10^3 (0.0-1.0); MONOCYTES % (AUTO) 3 % (0-12); NEUTROPHILS # (AUTO) 11.9 X 10^3 (1.8-7.8); NEUTROPHILS % (AUTO) 90 % (42-75); PLATELET COUNT 227 10^3/uL (130-400); RED CELL DISTRIBUTION WIDTH 13.7 % (10.0-14.5); WHITE BLOOD COUNT 13.2 10^3/uL (4.3-11.0)
[2018-04-25 03:34] LABS: ABG BASE EXCESS -2.6 MMOL/L (-2.5-2.5); ABG OXYGEN SATURATION 95 % (94-100); ABG PCO2 31 MMHG (35-45); ABG PH 7.44 (7.37-7.43); ABG PO2 65 MMHG (79-93); ABG TCO2 21.9 MMOL/L (21.0-31.0); ALLENS TEST POSITIVE; INSPIRED O2 35%; PATIENT TEMP 98.1; VENTILATOR YES
[2018-04-25 03:44] LABS: BUN/CREATININE RATIO 28; CARBON DIOXIDE 20 MMOL/L (21-32); CHLORIDE 109 MMOL/L (98-107); GFR ESTIMATED > 60; GLUCOSE 291 MG/DL (70-105); MAGNESIUM 2.4 MG/DL (1.8-2.4); PHOSPHORUS 2.9 MG/DL (2.3-4.7); POTASSIUM 4.3 MMOL/L (3.6-5.0); SODIUM 139 MMOL/L (135-145)
[2018-04-25] MEDS: MAGNESIUM 1 GM/100 ML IVPB 100 ML IV SCH (05:00)
[2018-04-25] MEDS: POTASSIUM CL 10MEQ/50ML IVPB 50 ML IV SCH (05:00)
[2018-04-25] MEDS: KCL 20 MEQ TAB (K-DUR) PO SCH (05:01)
[2018-04-25] MEDS: MULTIVIT W/MINERALS TAB (THERAGRAN M) PO SCH (05:01)
--- NOTE | 2018-04-25 06:30 | Pulmonary Progress Note ---
Subjective Time Seen by a Provider: 16:06 Subjective/Events-last exam sedated on vent Sepsis Event Evaluation Height, Weight, BMI Height: 5'5.00" Weight: 220lbs. 0.0oz. 99.500594yw; 36.6 BMI Method:Estimated Focused Exam Lactate Level 04/24/18 06:44: Lactic Acid Level 1.52 Exam Exam Vital Signs Date Time Temp Pulse Resp B/P (MAP) Pulse Ox O2 Delivery O2 Flow Rate FiO2 04/25/18 06:00 66 24 134/74 (94) 92 Mechanical Ventilator 35.00 04/25/18 05:00 74 25 133/76 (95) 92 Mechanical Ventilator 35.00 04/25/18 04:59 98.3 80 17 128/71 93 Mechanical Ventilator 35.00 04/25/18 04:26 80 17 93 35 04/25/18 04:00 93 Mechanical Ventilator 35 04/25/18 04:00 78 24 124/67 (86) 92 Mechanical Ventilator 35.00 04/25/18 03:00 68 22 111/62 (78) 92 Mechanical Ventilator 35.00 04/25/18 02:30 75 25 93 35 04/25/18 02:00 67 22 113/62 (79) 92 Mechanical Ventilator 35.00 04/25/18 01:24 74 19 92 35 04/25/18 01:00 72 23 111/63 (79) 92 Mechanical Ventilator 35.00 04/25/18 01:00 73 04/25/18 00:21 98.3 71 24 107/59 93 Mechanical Ventilator 55.00 04/25/18 00:00 85 16 107/60 (76) 93 Mechanical Ventilator 35.00 04/25/18 00:00 93 Mechanical Ventilator 35 04/24/18 23:00 71 24 107/59 (75) 93 Mechanical Ventilator 35.00 04/24/18 22:51 71 24 93 35 04/24/18 22:00 74 24 109/61 (77) 92 Mechanical Ventilator 35.00 04/24/18 21:00 77 23 112/62 (79) 91 Mechanical Ventilator 35.00 04/24/18 20:17 76 24 90 35 04/24/18 20:00 95 Mechanical Ventilator 35 04/24/18 20:00 76 22 113/63 (80) 90 Mechanical Ventilator 35.00 04/24/18 19:39 98.3 Mechanical Ventilator 35.00 04/24/18 19:00 114/62 (79) 04/24/18 19:00 77 04/24/18 18:04 66 22 92 35 04/24/18 18:00 66 20 111/65 (80) 91 Mechanical Ventilator 35.00 04/24/18 17:00 65 20 116/68 (84) 92 Mechanical Ventilator 35.00 04/24/18 16:47 67 23 92 35 04/24/18 16:00 66 22 97/59 (72) 91 Mechanical Ventilator 35.00 04/24/18 16:00 96 Mechanical Ventilator 35 04/24/18 15:23 60 17 92 35 04/24/18 15:00 60 19 97/61 (73) 92 Mechanical Ventilator 35.00 04/24/18 14:47 102/60 04/24/18 14:00 60 23 104/66 (79) 92 Mechanical Ventilator 35.00 04/24/18 13:00 60 18 96/61 (73) 92 Mechanical Ventilator 35.00 04/24/18 13:00 60 04/24/18 12:35 60 22 91 35 04/24/18 12:00 60 22 96/60 (72) 91 Mechanical Ventilator 35.00 04/24/18 12:00 96 Mechanical Ventilator 35 04/24/18 12:00 98.8 04/24/18 11:00 60 21 96/57 (70) 92 Mechanical Ventilator 35.00 04/24/18 10:09 60 21 95 35 04/24/18 10:00 60 20 104/62 (76) 96 Mechanical Ventilator 35.00 04/24/18 09:07 116/64 04/24/18 09:00 73 16 116/64 (81) 95 Mechanical Ventilator 35.00 04/24/18 08:53 72 22 96 35 04/24/18 08:00 96 Mechanical Ventilator 35 04/24/18 08:00 78 26 106/62 (77) 95 Mechanical Ventilator 35.00 04/24/18 07:00 70 16 98/70 (79) 93 Mechanical Ventilator 35.00 04/24/18 07:00 98.7 04/24/18 07:00 78 I & O 04/25/18 07:00 Output Total 1550 ml Balance -1550 ml Height & Weight Height: 5'5.00" Weight: 220lbs. 0.0oz. 99.842186cy; 36.6 BMI Method:Estimated General Appearance: Other (sedated on ventilator) HEENT: Other (ET tube in place ) Neck: Supple Respiratory: Lungs Clear Cardiovascular: Regular Rate, Rhythm Capillary Refill: Less Than 3 Seconds Gastrointestinal: normal bowel sounds, soft Extremity: Non Tender, No Calf Tenderness, Swelling Neurologic/Psychiatric: Other (sedated on ventilator) Skin: Warm/Dry Lymphatic: No Adenopathy Results Lab Laboratory Tests 04/23/18 12:15 04/24/18 03:03 04/25/18 03:15 Assessment/Plan Assessment/Plan Acute respiratory failure secondary to probable vocal cord spasms r/o recurrent laryngeal nerve damage - Will d/c sedation, and wake pt up. -solumedrol 40 IV Q6 -- Decrease to Q12 -Diprivan/fentanyl S/p C5-C6 fusion 04/22 -CT Neck reviewed no hematoma Hypotension with sinus tachycardia -monitor close -Repeat bolus Hyperglycemia - Levemir to 46 units daily -Change SSI to Q4 -May need insulin gtt Afib RVR - now converted -Amio, digoxin, cardizem -Cardiology following Leukocytosis - prost surgical Hx of laryngal spasms HTN urgency -Monitor HX of cardiac arrest 2010 Last EF 50-55% CAD Obesity THERESA COOK DO Apr 25, 2018 06:30
[2018-04-25] MEDS: RT-BUDESONIDE NEBS 0.5 MG/2ML (PULMICORT) AMP INH SCH ×2 (06:32→19:25)
[2018-04-25] MEDS ORDERED: LORazepam INJ 2 MG/ML (ATIVAN) VIAL ONE (07:23)
[2018-04-25] MEDS: HYDROcodone/APAP 5 MG/325 MG (LORTAB) TAB PO PRN (07:52)
[2018-04-25] MEDS: SENNOSIDES 8.6 MG (SENOKOT) TAB PO SCH ×2 (07:52→21:11)
[2018-04-25] MEDS: GABAPENTIN 300 MG (NEURONTIN) CAP PO SCH ×2 (07:52→21:11)
[2018-04-25] MEDS: meTOprolol TARTRATE 50 MG (LOPRESSOR) TAB PO SCH ×2 (07:52→21:11)
[2018-04-25] MEDS: FAMOTIDINE 20MG/2ML IV (PEPCID) IVP SCH ×2 (07:53→21:11)
[2018-04-25] MEDS: busPIRone 5 MG (BUSPAR) TAB PO SCH ×3 (07:53→21:11)
[2018-04-25] MEDS: ENOXAPARIN 100 MG/1 ML (LOVENOX) SYR SC SCH (07:54)
[2018-04-25] MEDS: inSUlin DETERMIR 1 UNIT/0.01 ML (LEVEMIR) CHARGE PER UNIT SQ SCH (07:54)
--- NOTE | 2018-04-25 07:59 | Diagnostic Imaging Report ---
INDICATION: Spinal stenosis Portable chest 3:42 AM There is an ET tube projecting above the trachea. NG tube enters the stomach. Right IJ central line tip projects over the SVC. There is a dual-chamber pacemaker. Heart size and pulmonary vascularity are normal. Lungs are clear. There are no effusions or pneumothoraces. IMPRESSION: No acute abnormalities in the chest. There is improved aeration at right lung base compared to previous day. Dictated by: Dictated on workstation # [id number]
--- NOTE | 2018-04-25 08:05 | NUR ---
PT EXTUBATED TO 6 LPM HIGH FLOW. NO DISTRESS NOTED BP141/58, HR 65, RR 24 SPO2 95%. PT KAHLIL PROCEDURE WELL
--- NOTE | 2018-04-25 10:47 | Progress Note (SOAP) ---
Subjective Date Seen by a Provider: Apr 25, 2018 Time Seen by a Provider: 09:30 Subjective/Events-last exam Fwup acute respiratory failure, postop stridor, tachycardia, COPD, diabetes mellitus II, SVT/V Tach. Extubated and sitting up in bed. C/O sore throat and hoarse. Focused Exam Lactate Level 04/24/18 06:44: Lactic Acid Level 1.52 Objective Exam Vital Signs Date Time Temp Pulse Resp B/P (MAP) Pulse Ox O2 Delivery O2 Flow Rate FiO2 04/25/18 09:00 65 29 139/84 (102) 96 High Flow N/C 6.00 04/25/18 08:00 81 22 147/88 (107) 93 Mechanical Ventilator 35.00 04/25/18 08:00 95 High Flow N/C 6.00 04/25/18 07:00 79 53 127/72 (90) 93 Mechanical Ventilator 35.00 04/25/18 07:00 79 04/25/18 06:33 73 25 93 35 04/25/18 06:00 66 24 134/74 (94) 92 Mechanical Ventilator 35.00 04/25/18 05:00 74 25 133/76 (95) 92 Mechanical Ventilator 35.00 04/25/18 04:59 98.3 80 17 128/71 93 Mechanical Ventilator 35.00 04/25/18 04:26 80 17 93 35 04/25/18 04:00 93 Mechanical Ventilator 35 04/25/18 04:00 78 24 124/67 (86) 92 Mechanical Ventilator 35.00 04/25/18 03:00 68 22 111/62 (78) 92 Mechanical Ventilator 35.00 04/25/18 02:30 75 25 93 35 04/25/18 02:00 67 22 113/62 (79) 92 Mechanical Ventilator 35.00 04/25/18 01:24 74 19 92 35 04/25/18 01:00 72 23 111/63 (79) 92 Mechanical Ventilator 35.00 04/25/18 01:00 73 04/25/18 00:21 98.3 71 24 107/59 93 Mechanical Ventilator 55.00 04/25/18 00:00 85 16 107/60 (76) 93 Mechanical Ventilator 35.00 04/25/18 00:00 93 Mechanical Ventilator 35 04/24/18 23:00 71 24 107/59 (75) 93 Mechanical Ventilator 35.00 04/24/18 22:51 71 24 93 35 04/24/18 22:00 74 24 109/61 (77) 92 Mechanical Ventilator 35.00 04/24/18 21:00 77 23 112/62 (79) 91 Mechanical Ventilator 35.00 04/24/18 20:17 76 24 90 35 04/24/18 20:00 95 Mechanical Ventilator 35 04/24/18 20:00 76 22 113/63 (80) 90 Mechanical Ventilator 35.00 04/24/18 19:39 98.3 Mechanical Ventilator 35.00 04/24/18 19:00 114/62 (79) 04/24/18 19:00 77 04/24/18 18:04 66 22 92 35 04/24/18 18:00 66 20 111/65 (80) 91 Mechanical Ventilator 35.00 04/24/18 17:00 65 20 116/68 (84) 92 Mechanical Ventilator 35.00 04/24/18 16:47 67 23 92 35 04/24/18 16:00 66 22 97/59 (72) 91 Mechanical Ventilator 35.00 04/24/18 16:00 96 Mechanical Ventilator 35 04/24/18 15:23 60 17 92 35 04/24/18 15:00 60 19 97/61 (73) 92 Mechanical Ventilator 35.00 04/24/18 14:47 102/60 04/24/18 14:00 60 23 104/66 (79) 92 Mechanical Ventilator 35.00 04/24/18 13:00 60 18 96/61 (73) 92 Mechanical Ventilator 35.00 04/24/18 13:00 60 04/24/18 12:35 60 22 91 35 04/24/18 12:00 60 22 96/60 (72) 91 Mechanical Ventilator 35.00 04/24/18 12:00 96 Mechanical Ventilator 35 04/24/18 12:00 98.8 04/24/18 11:00 60 21 96/57 (70) 92 Mechanical Ventilator 35.00 I & O 04/25/18 07:00 Output Total 1550 ml Balance -1550 ml Capillary Refill : Less Than 3 SecondsLess Than 3 Seconds General Appearance: No Apparent Distress Neck: Supple, Other (hoarse) Respiratory: Lungs Clear, Decreased Breath Sounds Cardiovascular: Regular Rate, Rhythm Gastrointestinal: normal bowel sounds, non tender, soft Extremity: Non Tender, No Calf Tenderness, No Pedal Edema Neurologic/Psychiatric: Alert, Oriented x3 Skin: Warm/Dry Results Lab Laboratory Tests 04/24/18 12:13: Glucometer 125H 04/24/18 17:32: Glucometer 170H 04/24/18 21:56: Glucometer 252H 04/25/18 00:14: Glucometer 263H 04/25/18 03:15: White Blood Count 13.2H, Red Blood Count 3.81L, Hemoglobin 11.4L, Hematocrit 35 , Mean Corpuscular Volume 92, Mean Corpuscular Hemoglobin 30, Mean Corpuscular Hemoglobin Concent 33, Red Cell Distribution Width 13.7, Platelet Count 227, Mean Platelet Volume 9.8, Neutrophils (%) (Auto) 90H, Lymphocytes (%) (Auto) 6L , Monocytes (%) (Auto) 3, Eosinophils (%) (Auto) 0, Basophils (%) (Auto) 0, Neutrophils # (Auto) 11.9H, Lymphocytes # (Auto) 0.8L, Monocytes # (Auto) 0.4, Eosinophils # (Auto) 0.0, Basophils # (Auto) 0.0, Sodium Level 139, Potassium Level 4.3, Chloride Level 109H, Carbon Dioxide Level 20L, Anion Gap 10, Blood Urea Nitrogen 22H, Creatinine 0.80, Estimat Glomerular Filtration Rate > 60, BUN /Creatinine Ratio 28, Glucose Level 291H, Calcium Level 8.0L, Phosphorus Level 2.9, Magnesium Level 2.4 04/25/18 03:25: Blood Gas Puncture Site L RADIAL, Blood Gas Patient Temperature 98.1, Arterial Blood pH 7.44H, Arterial Blood Partial Pressure CO2 31L, Arterial Blood Partial Pressure O2 65L, Arterial Blood HCO3 21L, Arterial Blood Total CO2 21.9, Arterial Blood Oxygen Saturation 95, Arterial Blood Base Excess -2.6L, Manjit Test POSITIVE, Blood Gas Ventilator Setting YES, Blood Gas Inspired Oxygen 35% 04/25/18 07:46: Glucometer 228H Microbiology 04/24/18 Gram Stain - Final, Resulted 04/24/18 Sputum Culture - Preliminary, Resulted Culture In Progress Assessment/Plan Assessment/Plan Assess & Plan/Chief Complaint 1. Acute Respiratory Failure--off ventilator 2. Postop Stridor--currently resolved 3. Diabetes mellitus--on SSI 4. COPD--stable 5. SVT/V Tach--on cardizem and amiodarone drips as well as loaded with digoxin and cardiology consulted 6. Hypotension/Hypothermia--improved Clinical Quality Measures Admission Status Admission Dx 1. Post-op stridor with unstable airway--sedated and intubated on ventilator 2. 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 Hypertensive Urgency with SVT--responded to IV cardizem, likely in response to racemic epi 4. Cervical Spinal Stenosis with Anterior C5-C6 fusion--check stat CT of soft tissues to rule out hematoma DVT/VTE Risk/Contraindication: Risk Factor Score Per Nursin RFS Level Per Nursing on Admit: 4+=Very High NANNETTE REVELES DO Apr 25, 2018 10:47
--- NOTE | 2018-04-25 11:19 | Occupational Therapy Eval ---
OT Evaluation-General/PLF Medical Diagnosis Admission Date Apr 21, 2018 at 06:01 Medical Diagnosis: s/p cervical spinal stenosis with anterior C5-C6 fusion Onset Date: Apr 21, 2018 Therapy Diagnosis Therapy Diagnosis: weakness, unsteadiness Height/Weight Height (Feet): 5 Height (Inches): 5.00 Weight (Pounds): 220 Weight (Ounces): 0.0 Precautions Precautions/Isolations: Fall Prevention, Standard Precautions Safety Interventions: None Comments spinal precautions Weight Bear Status Weight Bearing Restriction: Weight Bearing/Tolerated Referral Referral Reason: Activity Tolerance, Self Care, Evaluation/Treatment, Strengthening/ROM Medical History Pertinent Medical History: CAD, COPD, DM, NM, Neuropathy Additional Medical History Pt was placed on ventilator due to acute respiratory failure following surgery. Pt experienced post-op stridor with an unstable airway, and was sedated and intubated on a ventilator. Pt's further PMH includes degenerate disc disease, arthritis, fibromyalgia, chronic back pain, Social History Home: Single Level Current Living Status: Children (Pt's son lives with her, and provides assistance for cleaning tasks. ) Entry Into Home: Stairs With Railing Steps Into Home: 10 Steps Inside Home: 0 ADL-Prior Level of Function Therapy Code Descriptions/Definitions Functional [place] Measure: 0=Not Assessed/NA 4=Minimal Assistance 1=Total Assistance 5=Supervision or Setup 2=Maximal Assistance 6=Modified [place] 3=Moderate Assistance 7=Complete [place] Therapy Quality Codes: 6 Independent with activity with or without an assistive device 5 Patient requires set up or clean up by helper. Patient completes activity by themselves 4 Supervision or touching assist (CGA). [place] provide cues , steadying assist 3 The helper provides less than half the effort to complete the activity 2 The helper provides more than half the effort to complete the activity 1 Dependent. The helper does all the effort to complete an activity 7 Patient refused to complete or attempt activity 9 The patient did not perform the activity before the current illness or injury 88 Not attempted due to Medical conditions or safety concerns Functional Abilities and Goals: Independent: Patient completed the activities by him/herself, with or without an assistive device, with no assistance from a helper. Needed Some Help: Patient needed partial assistance from another person to complete activities. Dependent: A helper completed the activities for the patient. Unknown: Not Applicable: Self Care: Independent Functional Cognition: Independent DME/Equipment: Grab Bars (Grab bars outside of shower, and by toilet. ) DME/Equipment Comments Pt states that she used a cane occasionally for functional ambulation, however this was only used when feeling weak and unstable. Drive Self: No OT Current Status Subjective Pt extremely fatigued and had difficulty communicating due to recent extubation. Pain Numeric Pain Scale: 9 Location: Upper Location Body Site: Throat Pain Description: Burning Mental Status/Objective Patient Orientation: Person, Place, Time, Situation Attachments: Drains, IV, Oxygen Current Upper Extremity ROM Pt presents with WNL BUE ROM. Upper Extremity Sensation intact Upper Extremity Strength 3+/5, grossly. Pt complained of fatigue and difficulty performing all MMT movements. ADL-Treatment Therapy Code Descriptions/Definitions Functional [place] Measure: 0=Not Assessed/NA 4=Minimal Assistance 1=Total Assistance 5=Supervision or Setup 2=Maximal Assistance 6=Modified [place] 3=Moderate Assistance 7=Complete [place] Therapy Quality Codes: 6 Independent with activity with or without an assistive device 5 Patient requires set up or clean up by helper. Patient completes activity by themselves 4 Supervision or touching assist (CGA). [place] provide cues , steadying assist 3 The helper provides less than half the effort to complete the activity 2 The helper provides more than half the effort to complete the activity 1 Dependent. The helper does all the effort to complete an activity 7 Patient refused to complete or attempt activity 9 The patient did not perform the activity before the current illness or injury 88 Not attempted due to Medical conditions or safety concerns Grooming (FIM): 4 (Teodora for simple grooming/hygiene from bed level, as pt was unable to sit EOB. ) Other Treatments Pt attempted bed mobility, however she had extreme difficulty, pain, and weakness with task. Education OT Patient Education: Correct positioning, Energy conservation, Purpose of tx/ functional activities, Reviewed precautions, Rehab process, Safety issues, Transfer techniques Teaching Recipient: Patient Teaching Methods: Discussion Response to Teaching: Verbalize Understanding OT Short Term Goals Short Term Goals Time Frame: May 02, 2018 Upper Body Dressing(FIM): 5 Lower Body Dressing(FIM): 5 Toileting(FIM): 5 Transfers (B,C,W/C) (FIM): 5 Toilet/Commode Transfer(FIM): 5 Additional Short Term Goals: 1-Demonstrate ADL Tasks, 2-Verbalize Understanding , 3-ImproveStrength/Eileen 1=Demonstrate adherence to instructed precautions during ADL tasks. 2=Patient will verbalize/demonstrate understanding of assistive devices/ modifications for ADL. 3=Patient will improve strength/tolerance for activity to enable patient to perform ADL's. OT Alf Goals Alf Goals Time Frame: May 09, 2018 Upper Body Dressing(FIM): 6 Lower Body Dressing(FIM): 6 Toileting(FIM): 6 Transfers (B,C,W/C) (FIM): 6 Toilet/Commode Transfer(FIM): 6 Additional Goals: 1-Demonstrate ADL Tasks, 2-Verbalize Understanding, 3- ImproveStrength/Eileen 1=Demonstrate adherence to instructed precautions during ADL tasks. 2=Patient will verbalize/demonstrate understanding of assistive devices/ modifications for ADL. 3=Patient will improve strength/tolerance for activity to enable patient to perform ADL's. OT Education/Plan Problem List/Assessment Assessment: Decreased Activ Tolerance, Decreased UE Strength, Dependent Transfers, Impaired Bed Mobility, Impaired Funct Balance, Impaired Self-Care Skills Discharge Recommendations Plan/Recommendations: Continue POC Therapy D/C Recommendations: Occupational Therapy Home Care Equpiment Recommendations-D/C: Toilet Riser with Rails, Home School Coordinator, Bedside Commode Treatment Plan/Plan of Care Patient would benefit from OT for education, treatment and training to promote independence in ADL's, mobility, safety and/or upper extremity function for ADL' s. Plan of Care: ADL Retraining, Functional Mobility, UE Funct Exercise/Act, UE Neuromus Re-Ed/Coord Treatment Duration: May 09, 2018 Frequency: At least 5 of 7 days/Wk (IRF) Estimated Hrs Per Day: .5 hour per day Rehab Potential: Good Time/GCodes Start Time: 10:45 Stop Time: 11:15 Total Time Billed (hr/min): 30 Billed Treatment Time 1, JAHAIRA ELMORE LAUREN OT Apr 25, 2018 11:19
[2018-04-25] MEDS: DILTIAZEM 125 MG/NS 100 ML IV SCH ×2 (11:36)
[2018-04-25] MEDS: fentaNYL INJECTION 100 MCG/2 ML AMP IV PRN ×2 (11:36→21:11)
[2018-04-25] MEDS: PROMETHAZINE 25 MG (PHENERGAN) TAB PO PRN ×2 (11:37→17:17)
[2018-04-25] MEDS: diphenhydrAMINE 25 MG TAB (BENADRYL) PO PRN ×2 (11:37→17:17)
[2018-04-25] MEDS: NS IV 1000 ML 1,000 ML IV SCH (11:41)
--- NOTE | 2018-04-25 11:50 | Physical Therapy Evaluation ---
PT Evaluation-General Medical Diagnosis Admission Date Apr 21, 2018 at 06:01 Medical Diagnosis: s/p cervical spinal stenosis with anterior C5-C6 fusion Onset Date: Apr 21, 2018 Therapy Diagnosis Therapy Diagnosis: decreased mobility, weakness Height/Weight Height (Feet): 5 Height (Inches): 5.00 Weight (Pounds): 220 Weight (Ounces): 0.0 Precautions Precautions/Isolations: Fall Prevention, Standard Precautions Weight Bear Status Right Lower Extremity: Right Full Weight Bearing Left Lower Extremity: Left Full Weight Bearing Referral Physician: Donte Saleem DO Reason for Referral: Evaluation/Treatment Medical History Pertinent Medical History: CAD, COPD, DM, Diverticulitis, GERD, SD, Neuropathy Additional Medical History Pacemaker, SD, DDD, Fibromyalgia, Stenosis Current History Post-op presented with stridor Reviewed History: Yes Social History Home: Single Level Current Living Status: Spouse Entry Into Home: Stairs With Railing PT Steps Into Home: 10 PT Steps Inside Home: 0 Prior/Core FIM Prior Level of Function Therapy Code Descriptions/Definitions Functional [place] Measure: 0=Not Assessed/NA 4=Minimal Assistance 1=Total Assistance 5=Supervision or Setup 2=Maximal Assistance 6=Modified [place] 3=Moderate Assistance 7=Complete [place] Therapy Quality Codes: 6 Independent with activity with or without an assistive device 5 Patient requires set up or clean up by helper. Patient completes activity by themselves 4 Supervision or touching assist (CGA). [place] provide cues , steadying assist 3 The helper provides less than half the effort to complete the activity 2 The helper provides more than half the effort to complete the activity 1 Dependent. The helper does all the effort to complete an activity 7 Patient refused to complete or attempt activity 9 The patient did not perform the activity before the current illness or injury 88 Not attempted due to Medical conditions or safety concerns Functional Abilities and Goals: Independent: Patient completed the activities by him/herself, with or without an assistive device, with no assistance from a helper. Needed Some Help: Patient needed partial assistance from another person to complete activities. Dependent: A helper completed the activities for the patient. Unknown: Not Applicable: Bed Mobility: 7 Transfers (B,C,W/C) (FIM): 6 Gait: 7 Stairs: 6 PT Evaluation-Current Subjective Pt in bed and agrees to PT. Reports that she has a migraine. Objective Patient Orientation: Person, Place Attachments: Oxygen, Hopper Catheter, IV ROM/Strength ROM Lower Extremities gross motor decreased ROM Strength Lower Extremities gross motor (2/5) not tested formally Integumentary/Posture Bladder Incontinence: Hopper Cath Neuromuscular (Tone, Coordination, Reflexes) NT Sensory Vision: Functional Hearing: Functional Transfers Therapy Code Descriptions/Definitions Functional [place] Measure: 0=Not Assessed/NA 4=Minimal Assistance 1=Total Assistance 5=Supervision or Setup 2=Maximal Assistance 6=Modified [place] 3=Moderate Assistance 7=Complete [place] Transfers (B, C, W/C) (FIM): 3 Scootin Rollin Supine to/from Sit: 3 Balance Sitting Static: Poor Sitting Dynamic: Poor Assessment/Needs PT and SPT PROM of DF x10 reps. Pt able to AROM knee flexion while supine, pt is not able to get full ROM. Pt required mod A to EOB. Pt able to sit EOB for 5 min with CGA due to pt reports dizziness. Pt requests to lay back down due to migraine. Pt vitals all were okay during eval. Pt is now in bed with all needs met. PT will increase activity as pt is able to tolerate. Rehab Potential: Fair Post Rehab Potential-Barriers: co-morbidities PT Short Term Goals Short Term Goals Time Frame: May 02, 2018 Transfers (B,C,W/C) (FIM): 4 Gait (FIM): 1 Distance (FIM): 1=up to 49 ft Gait Distance Comment: 25' Gait Level of Assist: 4 Gait Assistive Device: FWW PT Plan Problem List Problem List: Activity Tolerance, Functional Strength, Safety, Balance, Gait, Transfer, Bed Mobility, ROM Treatment/Plan Treatment Plan: Continue Plan of Care Treatment Plan: Bed Mobility, Education, Functional Activity Eileen, Functional Strength, Gait, Safety, Therapeutic Exercise, Transfers Treatment Duration: May 02, 2018 Frequency: 6 times per week Estimated Hrs Per Day: .25 hour per day Patient and/or Family Agrees t: Yes Safety Risks/Education Patient Education: Transfer Techniques, Correct Positioning, Safety Issues Teaching Recipient: Patient Teaching Methods: Demonstration, Discussion Discharge Recommendations Therapy D/C Recommendations: Home w/ Family Support, [facility] (TCU/[facility]) Time/GCodes Time In: 1124 Time Out: 1136 Total Billed Treatment Time: 12 Total Billed Treatment 1 visit EVM 12 min IRENE NEGRO PT Apr 25, 2018 11:50
--- NOTE | 2018-04-25 14:11 | Progress Note-Cardiology ---
Cardiology SOAP Progress Note Subjective: Extubated. No c/o CP or palpitations. C/O some SOB. C/O sore throat. Objective: I&O/Vital Signs 04/25/18 04/25/18 04/25/18 04/25/18 04:00 04:00 04:26 04:59 Temp 98.3 Pulse 78 80 80 Resp 24 17 17 B/P (MAP) 124/67 (86) 128/71 Pulse Ox 92 93 93 93 O2 Delivery Mechanical Ventilator Mechanical Ventilator Mechanical Ventilator O2 Flow Rate 35.00 35.00 FiO2 35 35 04/25/18 04/25/18 04/25/18 04/25/18 05:00 06:00 06:33 07:00 Pulse 74 66 73 79 Resp 25 24 25 B/P (MAP) 133/76 (95) 134/74 (94) Pulse Ox 92 92 93 O2 Delivery Mechanical Ventilator Mechanical Ventilator O2 Flow Rate 35.00 35.00 FiO2 35 04/25/18 04/25/18 04/25/18 04/25/18 07:00 08:00 08:00 09:00 Pulse 79 81 65 Resp 53 22 29 B/P (MAP) 127/72 (90) 147/88 (107) 139/84 (102) Pulse Ox 93 95 93 96 O2 Delivery Mechanical Ventilator High Flow N/C Mechanical Ventilator High Flow N/C O2 Flow Rate 35.00 6.00 35.00 6.00 04/25/18 04/25/18 04/25/18 04/25/18 10:00 10:43 11:00 12:00 Pulse 64 67 63 Resp 16 16 25 B/P (MAP) 141/80 (100) 134/75 (94) 144/82 (102) Pulse Ox 96 94 94 94 O2 Delivery High Flow N/C High Flow N/C High Flow N/C High Flow N/C O2 Flow Rate 6.00 6.00 6.00 6.00 04/25/18 04/25/18 04/25/18 04/25/18 12:00 13:00 13:00 14:00 Pulse 67 70 68 Resp 17 18 B/P (MAP) 146/82 (103) 174/101 (125) Pulse Ox 97 97 97 O2 Delivery High Flow N/C High Flow N/C High Flow N/C O2 Flow Rate 4.00 6.00 6.00 04/25/18 04/25/18 15:08 15:16 Pulse 69 Resp 19 B/P (MAP) 129/70 (89) Pulse Ox 92 93 O2 Delivery High Flow N/C High Flow N/C O2 Flow Rate 6.00 6.00 04/25/18 00:00 Output Total 600 ml Balance -600 ml Weight (Pounds): 220 Weight (Ounces): 0.0 Weight (Calculated Kilograms): 99.523829 Constitutional: AAO x 3 Respiratory: No accessory muscle use; other (fair to good bilat air entry) Cardiovascular: regular rate-rhythm, S1 and S2, systolic murmur (soft WOLF at card base) Gastrointestional: soft; No guarding, No rebound; audible bowel sounds Extremities: No clubbing, No cyanosis, No significant edema Neurologic/Psychiatric: grossly intact Skin: No cool, No rash, No ulcerations, No rash on exposed areas, No ulcerations on exposed areas Results/Procedures: Labs Laboratory Tests 04/24/18 17:32: Glucometer 170H 04/24/18 21:56: Glucometer 252H 04/25/18 00:14: Glucometer 263H 04/25/18 03:15: White Blood Count 13.2H, Red Blood Count 3.81L, Hemoglobin 11.4L, Hematocrit 35 , Mean Corpuscular Volume 92, Mean Corpuscular Hemoglobin 30, Mean Corpuscular Hemoglobin Concent 33, Red Cell Distribution Width 13.7, Platelet Count 227, Mean Platelet Volume 9.8, Neutrophils (%) (Auto) 90H, Lymphocytes (%) (Auto) 6L , Monocytes (%) (Auto) 3, Eosinophils (%) (Auto) 0, Basophils (%) (Auto) 0, Neutrophils # (Auto) 11.9H, Lymphocytes # (Auto) 0.8L, Monocytes # (Auto) 0.4, Eosinophils # (Auto) 0.0, Basophils # (Auto) 0.0, Sodium Level 139, Potassium Level 4.3, Chloride Level 109H, Carbon Dioxide Level 20L, Anion Gap 10, Blood Urea Nitrogen 22H, Creatinine 0.80, Estimat Glomerular Filtration Rate > 60, BUN /Creatinine Ratio 28, Glucose Level 291H, Calcium Level 8.0L, Phosphorus Level 2.9, Magnesium Level 2.4 04/25/18 03:25: Blood Gas Puncture Site L RADIAL, Blood Gas Patient Temperature 98.1, Arterial Blood pH 7.44H, Arterial Blood Partial Pressure CO2 31L, Arterial Blood Partial Pressure O2 65L, Arterial Blood HCO3 21L, Arterial Blood Total CO2 21.9, Arterial Blood Oxygen Saturation 95, Arterial Blood Base Excess -2.6L, Manjit Test POSITIVE, Blood Gas Ventilator Setting YES, Blood Gas Inspired Oxygen 35% 04/25/18 07:46: Glucometer 228H 04/25/18 11:14: Glucometer 159H Microbiology 04/24/18 Gram Stain - Final, Resulted 04/24/18 Sputum Culture - Preliminary, Resulted Usual upper respiratory gil Procedures NAME: BRAYDON ARBOLEDA [facility] REC#: [id number] PT STATUS: ADM IN : 1945 PHYSICIAN: THERESA SALEEM DO ADMIT DATE: 04/21/18/ICU Signed Date of Exam: 04/25/18 CHEST 1 VIEW, AP/PA ONLY INDICATION: Spinal stenosis Portable chest 3:42 AM There is an ET tube projecting above the trachea. NG tube enters the stomach. Right IJ central line tip projects over the SVC. There is a dual-chamber pacemaker. Heart size and pulmonary vascularity are normal. Lungs are clear. There are no effusions or pneumothoraces. IMPRESSION: No acute abnormalities in the chest. There is improved aeration at right lung base compared to previous day. Dictated by: Dictated on workstation # [id number] Dict: 04/25/18 0659 Trans: 04/25/18841 Interpreted by: CHERRIE SAAEVDRA MD Electronically signed by: CHERRIE SAAVEDRA MD 04/25/1842 A/P: Assessment: PAF with RVR associated with hypotension - converted to NSR on 04-24-18 S/p spinal fusion surgery and post-op resp failure [facility] Echo of 04/23/18: mod concentric LVH, LVEF 65-70%, mild left atrial enlargement, PASP 30-35 mmHg Electrolyte abnormalities - corrected Previous h/o paroxysmal atrial tach and palpitations Chronic migraine headaches. Chronic body pains and fibromyalgia. H/o labile hypertension and postural hypotension History of perioperative bradycardia (asystole) and tachycardia (ventricular fibrillation). 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 MPI of Nov 2017 showed no evidence of significant myocardial ischemia or infarction. LVEF 78% Chronic pain syndrome. Obesity with a body mass index of approximately 36 The patient has been intolerant to statin therapy on account of chronic pain syndrome. 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 Dr Saleem following and has diagnosed restrictive lung disease Suspected LION - awaiting sleep studies at [facility] Bilateral intermittent leg swelling, chornic. Venous insuff study of 02/15/16 did not show DVT or reflux in the deep venous system or valvular insuff of greater or small saphenous system or AASV Less than 40% DANIELLE stenosis, 40-59% LICA stenosis on carotid u/s of 02/03/16 Plan: * Amio gtt has completed - maintaining SR * Dilt for vent rate control, in case PAF recurs - start oral today * Continue BB tx * Stop Lovenox and start OAC with Eliquis for stroke prophylaxis Physician Assessment Physician Assessment No cp or palp or syncope or shortness of breath at rest. Gen malaise Lungs: fair to good bilat air entry Cor: reg Ext: no c/c. Mild to mod edema of the legs A&R * As documented in our note above that I updated (italics) * I spoke with her and explained her CV issues * Change iv dilt to long-acting oral dilt * Change enoxaparin to apixaban * Monitor labs * Dr Dotson covering over the weekend YASMANI HAMILTON OUTBOARD TECHNICIAN Apr 25, 2018 14:11 ULI YOO MD FACP [facility] Apr 25, 2018 15:30
[2018-04-25] MEDS ORDERED: DILTIAZEM 240 MG (CARDIZEM CD) CAP PO NR (15:00)
--- NOTE | 2018-04-25 15:07 | ST Dysphagia Evaluation ---
Speech Evaluation-General Medical Diagnosis s/p cervical spinal stenosis with anterior C5-C6 fusion Onset Date: Apr 21, 2018 Therapy Diagnosis Therapy Diagnosis: Oropharyngeal Dysphagia Precautions Precautions/Isolations: Fall Prevention, Standard Precautions Medical History Pertinent Medical History: CAD, COPD, DM, Diverticulitis, GERD, [place], Neuropathy Reviewed History: Yes Social History Current Living Status: Spouse Speech PLF/Current-Dysphagia Prior Level of Function Prior to hospitalization patient was able to eat and drink anything she wanted ( per patient). Subjective Patient was pleasant and cooperative with the Bedside Dysphagia Evaluation. Cognitive Status Patient is oriented to most concepts. Oral Motor Skills Dentition: Natural Ability to Follow Directions: Good Oral Expression Ability: No Impairment Voice Voice Phonatory-Based Quality: Breathy Voice Pitch: Normal Voice Loudness: Moderately Soft/Quiet Face Facial Symmetry: Symmetrical Patient's voice is just coming back due to being extubated yesterday. Oral-Facial Assessment Oral-Facial Dentition: Normal Labial Seal Description: Weak Smile: Normal Puff Cheeks: Reduced Strength Lingual Protrusion: Normal Lingual ROM: Normal Lingual Strength: Normal Volitional Dry Swallow: Yes Can Clear Throat Volitionally: Yes Dysphagia Evaluation Consistencies Presented: Thin Liquid, Mechanical Soft, Pureed Oral phase is within functional limits for all consistencies presented. Patient exhibits within functional limits for the pharyngeal phase. Funct. Velo/Pharyngeal Symptom: Clears Throat Liquid Recommendations: Thin Swallowing Precautions: Alternate Liquids/Solids, Double Swallow, Decreased Bolus 1/2 Tsp, Liquids from Straw, Small Bites and Sips, Sitting Upright 90 Degrees, Sitting 90 Degrees 30 Post Intake Patient will be upgraded in diet on Saturday as appropriate if her oral intake is good over the weekend. Dysphagia Evaluation Summary Patient is a pleasant 72 year old female who was evaluated with the Bedside Dysphagia Evaluation per physician's order this date. Patient had been intubated for the past few days and was extubated yesterday. Patient was cooperative and able to follow directions during the evaluation. Presentations of thin liquids by 1/2 tsp. x2 and via straw without difficulty or s/s of aspiration. Patient presented with puree and mechanical soft without difficulty or s/s of aspiration. Patient stated her throat is a bit "scratchy" so the order for Dysphagia II diet level with thin liquids was placed with nursing. Patient will be reassessed on Saturday and upgraded to regular if appropriate. Barriers to Learning Patient is medically complex with her issues resolving. Speech Short Term Goals Short Term Goals Short Term Goals 1) Patient will tolerate least restrictive diet level without s/s of aspiration at 90% or greater. 2) Patient will utilize compensatory strategies as trained with 90% or greater. Speech Chcf Goals Chcf Goals Patient will maintain adequate nutrition and hydration via safe effective swallow function. Speech-Plan Patient/Family Goals Patient/Family Goals: Patient plans to return home with her upon hospital discharge. Treatment Plan Speech Therapy Treatment Plan: Continue Plan of Care Patient is recommended for skilled dysphagia therapy. Treatment Duration: May 01, 2018 Frequency: 5 times per week Estimated Hrs Per Day: .25 hour per day Rehab Potential: Good Barriers to Learning: Patient has multiple medical diagnosis with issues resolving. Pt/Family Agrees to Plan: Yes Safety Risks/Education Teaching Recipient: Patient Teaching Methods: Demonstration, Discussion Response to Teaching: Verbalize Understanding, Return Demonstration Education Topics Provided: Safety of oral intake strategies. Time Speech Therapy Time In: 11:05 Speech Therapy Time Out: 11:20 Total Billed Time: 15 Billed Treatment Time 1, SANDOVAL Alvarez Apr 25, 2018 15:07
[2018-04-25] MEDS: PRAMIPEXOLE 0.5 MG TAB (MIRAPEX) PO SCH (15:33)
--- NOTE | 2018-04-25 16:58 | NUR ---
CALL TO E ICU FOR TORADOL TO ADD TO BENADRYL AND PHENERGAN FOR MIGRAINE PERSISTING T/O OTHER MEDICATION ADMIN FOR PAIN.
--- NOTE | 2018-04-25 17:14 | Progress Note (SOAP) ---
Subjective Date Seen by a Provider: Apr 25, 2018 Time Seen by a Provider: 17:12 Subjective/Events-last exam EDWIN. Doing much better. extubed and talking. denies SOB/CP. questions were answered today. Focused Exam Lactate Level 04/24/18 06:44: Lactic Acid Level 1.52 Objective Exam Vital Signs Date Time Temp Pulse Resp B/P (MAP) Pulse Ox O2 Delivery O2 Flow Rate FiO2 04/25/18 16:00 79 10 145/76 (99) 92 High Flow N/C 6.00 04/25/18 16:00 97 High Flow N/C 6.00 04/25/18 15:16 93 High Flow N/C 6.00 04/25/18 15:08 69 19 129/70 (89) 92 High Flow N/C 6.00 04/25/18 14:00 68 18 174/101 (125) 97 High Flow N/C 6.00 04/25/18 13:00 70 04/25/18 13:00 67 17 146/82 (103) 97 High Flow N/C 6.00 04/25/18 12:00 97 High Flow N/C 4.00 04/25/18 12:00 63 25 144/82 (102) 94 High Flow N/C 6.00 04/25/18 11:00 67 16 134/75 (94) 94 High Flow N/C 6.00 04/25/18 10:43 94 High Flow N/C 6.00 04/25/18 10:00 64 16 141/80 (100) 96 High Flow N/C 6.00 04/25/18 09:00 65 29 139/84 (102) 96 High Flow N/C 6.00 04/25/18 08:00 81 22 147/88 (107) 93 Mechanical Ventilator 35.00 04/25/18 08:00 95 High Flow N/C 6.00 04/25/18 07:00 79 53 127/72 (90) 93 Mechanical Ventilator 35.00 04/25/18 07:00 79 04/25/18 06:33 73 25 93 35 04/25/18 06:00 66 24 134/74 (94) 92 Mechanical Ventilator 35.00 04/25/18 05:00 74 25 133/76 (95) 92 Mechanical Ventilator 35.00 2/22/19 04:59 98.3 80 17 128/71 93 Mechanical Ventilator 35.00 04/25/18 04:26 80 17 93 35 04/25/18 04:00 93 Mechanical Ventilator 35 04/25/18 04:00 78 24 124/67 (86) 92 Mechanical Ventilator 35.00 04/25/18 03:00 68 22 111/62 (78) 92 Mechanical Ventilator 35.00 04/25/18 02:30 75 25 93 35 04/25/18 02:00 67 22 113/62 (79) 92 Mechanical Ventilator 35.00 04/25/18 01:24 74 19 92 35 04/25/18 01:00 72 23 111/63 (79) 92 Mechanical Ventilator 35.00 04/25/18 01:00 73 04/25/18 00:21 98.3 71 24 107/59 93 Mechanical Ventilator 55.00 04/25/18 00:00 85 16 107/60 (76) 93 Mechanical Ventilator 35.00 04/25/18 00:00 93 Mechanical Ventilator 35 04/24/18 23:00 71 24 107/59 (75) 93 Mechanical Ventilator 35.00 04/24/18 22:51 71 24 93 35 04/24/18 22:00 74 24 109/61 (77) 92 Mechanical Ventilator 35.00 04/24/18 21:00 77 23 112/62 (79) 91 Mechanical Ventilator 35.00 04/24/18 20:17 76 24 90 35 04/24/18 20:00 95 Mechanical Ventilator 35 04/24/18 20:00 76 22 113/63 (80) 90 Mechanical Ventilator 35.00 04/24/18 19:39 98.3 Mechanical Ventilator 35.00 04/24/18 19:00 114/62 (79) 04/24/18 19:00 77 04/24/18 18:04 66 22 92 35 04/24/18 18:00 66 20 111/65 (80) 91 Mechanical Ventilator 35.00 I & O 04/25/18 07:00 Output Total 1550 ml Balance -1550 ml Capillary Refill : Less Than 3 SecondsLess Than 3 Seconds General Appearance: No Apparent Distress Extremity: Other (5/5 motor dylan UE, Dressings CDI, NVSI all dermatomes) Results Lab Laboratory Tests 04/24/18 17:32: Glucometer 170H 04/24/18 21:56: Glucometer 252H 04/25/18 00:14: Glucometer 263H 04/25/18 03:15: White Blood Count 13.2H, Red Blood Count 3.81L, Hemoglobin 11.4L, Hematocrit 35 , Mean Corpuscular Volume 92, Mean Corpuscular Hemoglobin 30, Mean Corpuscular Hemoglobin Concent 33, Red Cell Distribution Width 13.7, Platelet Count 227, Mean Platelet Volume 9.8, Neutrophils (%) (Auto) 90H, Lymphocytes (%) (Auto) 6L , Monocytes (%) (Auto) 3, Eosinophils (%) (Auto) 0, Basophils (%) (Auto) 0, Neutrophils # (Auto) 11.9H, Lymphocytes # (Auto) 0.8L, Monocytes # (Auto) 0.4, Eosinophils # (Auto) 0.0, Basophils # (Auto) 0.0, Sodium Level 139, Potassium Level 4.3, Chloride Level 109H, Carbon Dioxide Level 20L, Anion Gap 10, Blood Urea Nitrogen 22H, Creatinine 0.80, Estimat Glomerular Filtration Rate > 60, BUN /Creatinine Ratio 28, Glucose Level 291H, Calcium Level 8.0L, Phosphorus Level 2.9, Magnesium Level 2.4 04/25/18 03:25: Blood Gas Puncture Site L RADIAL, Blood Gas Patient Temperature 98.1, Arterial Blood pH 7.44H, Arterial Blood Partial Pressure CO2 31L, Arterial Blood Partial Pressure O2 65L, Arterial Blood HCO3 21L, Arterial Blood Total CO2 21.9, Arterial Blood Oxygen Saturation 95, Arterial Blood Base Excess -2.6L, Manjit Test POSITIVE, Blood Gas Ventilator Setting YES, Blood Gas Inspired Oxygen 35% 04/25/18 07:46: Glucometer 228H 04/25/18 11:14: Glucometer 159H 04/25/18 15:43: Glucometer 138H Microbiology 04/24/18 Gram Stain - Final, Resulted 04/24/18 Sputum Culture - Preliminary, Resulted Usual upper respiratory gil Assessment/Plan Assessment/Plan Assess & Plan/Chief Complaint ASSESSMENT: s/p ACDF POD 4 respiratory arrest requiring intubation PLAN: stable from spine standpoint f/u in [address] bhatt spine precautions keep dressings CDI Clinical Quality Measures DVT/VTE Risk/Contraindication: Risk Factor Score Per Nursin RFS Level Per Nursing on Admit: 4+=Very High EULA BHATT DO Apr 25, 2018 17:14
[2018-04-25] MEDS ORDERED: KETOROLAC 15 MG/ML VIAL IV PRN (17:15)
[2018-04-25] MEDS: APIXABAN 5 MG (ELIQUIS) TABLET PO SCH (21:11)
[2018-04-25] MEDS: GABAPENTIN 100 MG (NEURONTIN) CAP PO SCH (21:11)
[2018-04-26] VITALS (20 sets, daily range): BP systolic 114–155; BP diastolic 69–106
[2018-04-26] MEDS: RT-ALBUTEROL/IPRATROPIUM 3 ML (DUONEB) VIAL INH SCH ×7 (00:17→22:11)
[2018-04-26 04:16] LABS: BASOPHILS # (AUTO) 0.1 10^3/uL (0.0-0.1); BASOPHILS % (AUTO) 0 % (0-10); EOSINOPHILS % (AUTO) 0 % (0-10); HEMATOCRIT 36 % (35-52); HEMOGLOBIN 11.6 G/DL (11.5-16.0); LYMPHOCYTES # (AUTO) 1.7 X 10^3 (1.0-4.0); LYMPHOCYTES % (AUTO) 10 % (12-44); MEAN CORPUSCULAR HEMOGLOBIN 30 PG (25-34); MEAN CORPUSCULAR HGB CONC 32 G/DL (32-36); MEAN CORPUSCULAR VOLUME 93 FL (80-99); MEAN PLATELET VOLUME 9.4 FL (7.4-10.4); MONOCYTES # (AUTO) 0.6 X 10^3 (0.0-1.0); MONOCYTES % (AUTO) 4 % (0-12); NEUTROPHILS # (AUTO) 14.9 X 10^3 (1.8-7.8); NEUTROPHILS % (AUTO) 86 % (42-75); PLATELET COUNT 341 10^3/uL (130-400); WHITE BLOOD COUNT 17.3 10^3/uL (4.3-11.0)
[2018-04-26] MEDS: inSUlin ASPART (NovoLOG) 1 UNIT/0.01 ML (CHARGE PER UNIT) SQ SCH ×4 (04:36→18:16)
[2018-04-26 04:38] LABS: BUN/CREATININE RATIO 37; CALCIUM 8.6 MG/DL (8.5-10.1); CARBON DIOXIDE 24 MMOL/L (21-32); CHLORIDE 111 MMOL/L (98-107); GFR ESTIMATED > 60; GLUCOSE 86 MG/DL (70-105); MAGNESIUM 2.3 MG/DL (1.8-2.4); PHOSPHORUS 3.3 MG/DL (2.3-4.7); POTASSIUM 4.4 MMOL/L (3.6-5.0); SODIUM 143 MMOL/L (135-145)
[2018-04-26] MEDS: MAGNESIUM 1 GM/100 ML IVPB 100 ML IV SCH (04:45)
[2018-04-26] MEDS: KCL 20 MEQ TAB (K-DUR) PO SCH (04:45)
[2018-04-26] MEDS: POTASSIUM CL 10MEQ/50ML IVPB 50 ML IV SCH (04:45)
[2018-04-26] MEDS: MULTIVIT W/MINERALS TAB (THERAGRAN M) PO SCH (04:47)
[2018-04-26] MEDS: methylPREDNISolone 40 MG/ML (Solu-MEDROL) VIAL IV SCH (05:56)
--- NOTE | 2018-04-26 06:56 | Diagnostic Imaging Report ---
Erect AP chest at 3:12 Indication: Respiratory distress In the interval since the prior exam of 04/25/2018 the patient has been extubated and the NG line has been removed. The other supportive tubes and lines remain in good position. The heart is stable in size. There is still mild atelectasis/infiltrate and fluid involving the left lung base. Also, in the interval since the prior study, a new small area of pneumonia/atelectasis has developed in the right infrahilar region. The upper lungs remain clear. The mediastinum is not widened. The osseous structures are intact. The orthopedic plate overlying the lower cervical spine is again noted. Impression: 1 The appearance of the chest has worsened somewhat since the prior exam as a new small area of pneumonia/atelectasis has developed in the right infrahilar region. A followup study would be recommended for continued evaluation. 2. The patient has been extubated and the NG line has been removed. Dictated by: Dictated on workstation # [id number]
--- NOTE | 2018-04-26 07:10 | Pulmonary Progress Note ---
Subjective Time Seen by a Provider: 16:13 Subjective/Events-last exam NO complications noted. Sepsis Event Evaluation Height, Weight, BMI Height: 5'5.00" Weight: 220lbs. 0.0oz. 99.724515yr; 36.6 BMI Method:Estimated Focused Exam Lactate Level 04/24/18 06:44: Lactic Acid Level 1.52 Exam Exam Vital Signs Date Time Temp Pulse Resp B/P (MAP) Pulse Ox O2 Delivery O2 Flow Rate FiO2 04/26/18 06:00 70 15 153/79 (103) 94 High Flow N/C 10.00 04/26/18 05:00 60 20 155/85 (108) 94 High Flow N/C 10.00 04/26/18 04:00 92 High Flow N/C 10.00 04/26/18 04:00 60 17 143/82 (102) 94 High Flow N/C 10.00 04/26/18 04:00 97.6 04/26/18 03:00 60 16 154/87 (109) 92 High Flow N/C 10.00 04/26/18 02:00 60 14 145/86 (105) 94 High Flow N/C 10.00 04/26/18 01:00 62 04/26/18 01:00 62 17 142/83 (102) 91 High Flow N/C 10.00 04/26/18 00:00 97.3 04/26/18 00:00 94 High Flow N/C 10.00 04/26/18 00:00 60 19 151/94 (113) 95 High Flow N/C 10.00 04/25/18 23:00 67 17 147/88 (107) 94 High Flow N/C 10.00 04/25/18 22:00 72 19 144/86 (105) 92 High Flow N/C 10.00 04/25/18 21:00 76 22 149/87 (107) 90 High Flow N/C 10.00 04/25/18 20:15 High Flow N/C 10.00 04/25/18 20:00 93 High Flow N/C 6.00 04/25/18 20:00 93 20 151/77 (101) 91 High Flow N/C 6.00 04/25/18 20:00 98.3 04/25/18 19:25 93 High Flow N/C 6.00 04/25/18 19:00 78 04/25/18 19:00 72 19 133/70 (91) 94 High Flow N/C 6.00 04/25/18 18:05 81 26 145/84 (104) 93 High Flow N/C 6.00 04/25/18 17:00 75 7 142/89 (106) 93 High Flow N/C 6.00 04/25/18 16:00 79 10 145/76 (99) 92 High Flow N/C 6.00 04/25/18 16:00 97.9 04/25/18 16:00 97 High Flow N/C 6.00 04/25/18 15:16 93 High Flow N/C 6.00 04/25/18 15:08 69 19 129/70 (89) 92 High Flow N/C 6.00 04/25/18 14:00 68 18 174/101 (125) 97 High Flow N/C 6.00 04/25/18 13:00 70 04/25/18 13:00 67 17 146/82 (103) 97 High Flow N/C 6.00 04/25/18 12:00 97 High Flow N/C 4.00 04/25/18 12:00 98.5 04/25/18 12:00 63 25 144/82 (102) 94 High Flow N/C 6.00 04/25/18 11:00 67 16 134/75 (94) 94 High Flow N/C 6.00 04/25/18 10:43 94 High Flow N/C 6.00 04/25/18 10:00 64 16 141/80 (100) 96 High Flow N/C 6.00 04/25/18 09:00 65 29 139/84 (102) 96 High Flow N/C 6.00 04/25/18 08:00 81 22 147/88 (107) 93 Mechanical Ventilator 35.00 04/25/18 08:00 95 High Flow N/C 6.00 I & O 04/26/18 07:00 Intake Total 100 ml Output Total 2375 ml Balance -2275 ml Height & Weight Height: 5'5.00" Weight: 220lbs. 0.0oz. 99.271632as; 36.6 BMI Method:Estimated General Appearance: No Apparent Distress, Obese Neck: Supple, Other (hoarse) Respiratory: Lungs Clear, Decreased Breath Sounds Cardiovascular: Regular Rate, Rhythm Capillary Refill: Less Than 3 Seconds Gastrointestinal: normal bowel sounds, non tender, soft Extremity: Other (5/5 motor dylan UE, Dressings CDI, NVSI all dermatomes) Neurologic/Psychiatric: Alert, Oriented x3 Skin: Warm/Dry Lymphatic: No Adenopathy Results Lab Laboratory Tests 04/25/18 03:15 04/26/18 04:08 Assessment/Plan Assessment/Plan S/P Acute respiratory failure secondary to probable vocal cord spasms r/o recurrent laryngeal nerve damage - PT is doing well off vent -D/C solumedrol S/p C5-C6 fusion 04/22 -CT Neck reviewed no hematoma Afib - -Amio, digoxin, cardizem -Cardiology following Leukocytosis - prost surgical Hx of laryngal spasms -Ativan PRN HX of cardiac arrest 2010 Last EF 50-55% CAD Obesity THERESA COOK DO Apr 26, 2018 07:10
[2018-04-26] MEDS: FAMOTIDINE 20MG/2ML IV (PEPCID) IVP SCH ×2 (09:21→20:45)
[2018-04-26] MEDS: APIXABAN 5 MG (ELIQUIS) TABLET PO SCH ×2 (09:22→20:51)
[2018-04-26] MEDS: GABAPENTIN 300 MG (NEURONTIN) CAP PO SCH ×2 (09:23→20:45)
[2018-04-26] MEDS: meTOprolol TARTRATE 50 MG (LOPRESSOR) TAB PO SCH ×2 (09:23→20:46)
[2018-04-26] MEDS: DILTIAZEM 240 MG (CARDIZEM CD) CAP PO SCH (09:23)
[2018-04-26] MEDS: busPIRone 5 MG (BUSPAR) TAB PO SCH ×3 (09:23→20:45)
[2018-04-26] MEDS: SENNOSIDES 8.6 MG (SENOKOT) TAB PO SCH ×2 (09:23→20:45)
[2018-04-26] MEDS: inSUlin DETERMIR 1 UNIT/0.01 ML (LEVEMIR) CHARGE PER UNIT SQ SCH (09:24)
--- NOTE | 2018-04-26 11:31 | Physical Therapy Daily Note ---
PT Daily Note-Current Subjective Pt reports has migraine, head and neck pain. didn't sleep last night, has been having difficulty sleeping but is not able to take any sleep meds. Pain Numeric Pain Scale: 9 Location Body Site: Head Comment: Pt states she has made nursing aware of pain Appearance at beginning of visit, pt supine in bed, agreeable to PT although in a lot of pain from migraine At end of session, pt supine in bed with call light phone and bedside table within reach, physician in room at end of session Transfers Therapy Code Descriptions/Definitions Functional [place] Measure: 0=Not Assessed/NA 4=Minimal Assistance 1=Total Assistance 5=Supervision or Setup 2=Maximal Assistance 6=Modified [place] 3=Moderate Assistance 7=Complete [place] Therapy Quality Codes: 6 Independent with activity with or without an assistive device 5 Patient requires set up or clean up by helper. Patient completes activity by themselves 4 Supervision or touching assist (CGA). [place] provide cues , steadying assist 3 The helper provides less than half the effort to complete the activity 2 The helper provides more than half the effort to complete the activity 1 Dependent. The helper does all the effort to complete an activity 7 Patient refused to complete or attempt activity 9 The patient did not perform the activity before the current illness or injury 88 Not attempted due to Medical conditions or safety concerns Transfers (B, C, W/C) (FIM): 5 Scootin Rollin Supine to/from Sit: 5 Weight Bearing Right Lower Extremity: Right Full Weight Bearing Left Lower Extremity: Left Full Weight Bearing Balance Special Test Comments sitting EOB for balance training, no LOB, min unsteadiness improved with time sitting. C/O some dizziness Treatments Bed mobility, Sitting EOB for balance activities and activity tolerance, transfer training Assessment Current Status: Good Progress PT Short Term Goals Short Term Goals Time Frame: May 02, 2018 Transfers (B,C,W/C) (FIM): 4 Gait (FIM): 1 Distance (FIM): 1=up to 49 ft Gait Distance Comment: 25' Gait Level of Assist: 4 Gait Assistive Device: FWW PT Plan Treatment/Plan Treatment Plan: Continue Plan of Care Treatment Plan: Bed Mobility, Education, Functional Activity Eileen, Functional Strength, Gait, Safety, Therapeutic Exercise, Transfers Treatment Duration: May 02, 2018 Frequency: 6 times per week Estimated Hrs Per Day: .25 hour per day Patient and/or Family Agrees t: Yes Safety Risks/Education Patient Education: Transfer Techniques, Safety Issues Teaching Recipient: Patient Teaching Methods: Discussion Response to Teaching: Verbalize Understanding Time/GCodes Time In: 820 Time Out: 839 Total Billed Treatment Time: 19 Total Billed Treatment 1 visit, FA x19 SKY PATINO PTA Apr 26, 2018 11:31
[2018-04-26] MEDS: PRAMIPEXOLE 0.5 MG TAB (MIRAPEX) PO SCH (17:58)
[2018-04-26] MEDS: CYCLOBENZAPRINE 10 MG (FLEXERIL) TAB PO PRN (20:45)
[2018-04-26] MEDS: GABAPENTIN 100 MG (NEURONTIN) CAP PO SCH (20:45)
[2018-04-26] MEDS: MELATONIN 3 MG TABLET PO SCH (20:46)
[2018-04-26] MEDS: diphenhydrAMINE 25 MG TAB (BENADRYL) PO PRN (20:46)
--- NOTE | 2018-04-26 21:11 | Cardiology Progress Note ---
Cardiology SOAP Progress Note Subjective: No cardiac complaints. Objective: I&O/Vital Signs 04/26/18 04/26/18 04/26/18 04/26/18 10:00 10:25 11:00 12:00 Pulse 60 61 60 Resp 14 31 19 B/P (MAP) 133/106 (115) 114/100 (105) 138/77 (97) Pulse Ox 95 94 94 O2 Delivery High Flow N/C High Flow N/C High Flow N/C High Flow N/C O2 Flow Rate 10.00 6.00 10.00 10.00 04/26/18 04/26/18 04/26/18 04/26/18 13:00 13:18 14:00 14:23 Pulse 60 60 60 Resp 27 52 B/P (MAP) 147/79 (101) 146/88 (107) Pulse Ox 84 94 O2 Delivery High Flow N/C High Flow N/C High Flow N/C O2 Flow Rate 10.00 10.00 10.00 04/26/18 04/26/18 04/26/18 04/26/18 15:00 16:00 17:00 18:00 Pulse 60 60 60 60 Resp 23 15 B/P (MAP) 147/77 (100) 137/71 (93) 155/88 (110) 152/82 (105) Pulse Ox 93 O2 Delivery High Flow N/C High Flow N/C High Flow N/C High Flow N/C O2 Flow Rate 10.00 10.00 10.00 10.00 04/26/18 04/26/18 04/26/18 04/26/18 19:00 19:39 19:42 20:00 Temp 97.0 Pulse 60 60 Resp 16 B/P (MAP) 135/69 (91) Pulse Ox 94 96 O2 Delivery High Flow N/C High Flow N/C O2 Flow Rate 10.00 10.00 04/26/18 00:00 Output Total 1400 ml Balance -1400 ml Weight (Pounds): 220 Weight (Ounces): 0.0 Weight (Calculated Kilograms): 99.651991 Constitutional: AAO x 3 Respiratory: No accessory muscle use; other (fair to good bilat air entry) Cardiovascular: regular rate-rhythm, S1 and S2, systolic murmur (soft WOLF at card base) Gastrointestional: soft; No guarding, No rebound; audible bowel sounds Extremities: No clubbing, No cyanosis, No significant edema Neurologic/Psychiatric: grossly intact Skin: No cool, No rash, No ulcerations, No rash on exposed areas, No ulcerations on exposed areas Results/Procedures: Labs Laboratory Tests 04/25/18 23:42: Glucometer 102 04/26/18 04:08: White Blood Count 17.3H, Red Blood Count 3.88L, Hemoglobin 11.6, Hematocrit 36, Mean Corpuscular Volume 93, Mean Corpuscular Hemoglobin 30, Mean Corpuscular Hemoglobin Concent 32, Red Cell Distribution Width 14.0, Platelet Count 341, Mean Platelet Volume 9.4, Neutrophils (%) (Auto) 86H, Lymphocytes (%) (Auto) 10L , Monocytes (%) (Auto) 4, Eosinophils (%) (Auto) 0, Basophils (%) (Auto) 0, Neutrophils # (Auto) 14.9H, Lymphocytes # (Auto) 1.7, Monocytes # (Auto) 0.6, Eosinophils # (Auto) 0.0, Basophils # (Auto) 0.1, Sodium Level 143, Potassium Level 4.4, Chloride Level 111H, Carbon Dioxide Level 24, Anion Gap 8, Blood Urea Nitrogen 26H, Creatinine 0.70, Estimat Glomerular Filtration Rate > 60, BUN /Creatinine Ratio 37, Glucose Level 86, Calcium Level 8.6, Phosphorus Level 3.3 , Magnesium Level 2.3 04/26/18 11:25: Glucometer 105 04/26/18 18:13: Glucometer 236H Microbiology 04/24/18 Blood Culture - Preliminary, Resulted No growth 04/24/18 Gram Stain - Final, Complete 04/24/18 Sputum Culture - Final, Complete Usual upper respiratory gil A/P: Assessment/Dx: PAF with RVR associated with hypotension - converted to NSR on 04-24-18 S/p spinal fusion surgery and post-op resp failure [facility]ated Echo of 04/23/18: mod concentric LVH, LVEF 65-70%, mild left atrial enlargement, PASP 30-35 mmHg Electrolyte abnormalities - corrected Previous h/o paroxysmal atrial tach and palpitations Chronic migraine headaches. Chronic body pains and fibromyalgia. H/o labile hypertension and postural hypotension History of perioperative bradycardia (asystole) and tachycardia (ventricular fibrillation). 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 MPI of Nov 2017 showed no evidence of significant myocardial ischemia or infarction. LVEF 78% Chronic pain syndrome. Obesity with a body mass index of approximately 36 The patient has been intolerant to statin therapy on account of chronic pain syndrome. DM II, insulin requiring, managed by [facility] bone char puller Cough of undetermined etiology. Dr Saleem following and has diagnosed restrictive lung disease Suspected LION - awaiting sleep studies at [facility] Bilateral intermittent leg swelling, chornic. Venous insuff study of 02/15/16 did not show DVT or reflux in the deep venous system or valvular insuff of greater or small saphenous system or AASV Less than 40% DANIELLE stenosis, 40-59% LICA stenosis on carotid u/s of 02/03/16 Plan: Plan: * Amio gtt has completed - maintaining SR * Oral Diltiazem. * Continue BB tx * Eliquis for PAF Thank you for your consultation. Please call me if you have any questions. Neeraj Dotson MD, FACP, FACC, FSCAI, FHRS, CCDS Interventional Cardiology Cardiac Electrophysiology Vascular Medicine and Endovascular Interventions Focused Exam Lactate Level 04/24/18 06:44: Lactic Acid Level 1.52 Dania DOTSON MD Apr 26, 2018 21:11
[2018-04-26] MEDS: PROMETHAZINE 25 MG (PHENERGAN) TAB PO PRN (23:35)
[2018-04-26] MEDS: LORazepam INJ 2 MG/ML (ATIVAN) VIAL IV PRN (23:35)
[2018-04-27] VITALS: BP 110/61
[2018-04-27] MEDS: diphenhydrAMINE 25 MG TAB (BENADRYL) PO PRN (02:19)
[2018-04-27] MEDS: oxyCODONE/APAP 5/325MG (PERCOCET 5) TABLET PO PRN (02:20)
[2018-04-27] MEDS: RT-ALBUTEROL/IPRATROPIUM 3 ML (DUONEB) VIAL INH SCH ×6 (03:07→22:32)
[2018-04-27 04:00] VITALS: BP 129/87
[2018-04-27 04:49] LABS: BASOPHILS # (AUTO) 0.1 10^3/uL (0.0-0.1); BASOPHILS % (AUTO) 0 % (0-10); EOSINOPHILS % (AUTO) 0 % (0-10); HEMATOCRIT 35 % (35-52); HEMOGLOBIN 11.3 G/DL (11.5-16.0); LYMPHOCYTES # (AUTO) 1.6 X 10^3 (1.0-4.0); LYMPHOCYTES % (AUTO) 12 % (12-44); MEAN CORPUSCULAR HEMOGLOBIN 30 PG (25-34); MEAN CORPUSCULAR HGB CONC 32 G/DL (32-36); MEAN CORPUSCULAR VOLUME 93 FL (80-99); MEAN PLATELET VOLUME 9.4 FL (7.4-10.4); MONOCYTES # (AUTO) 0.9 X 10^3 (0.0-1.0); MONOCYTES % (AUTO) 7 % (0-12); NEUTROPHILS # (AUTO) 10.8 X 10^3 (1.8-7.8); NEUTROPHILS % (AUTO) 81 % (42-75); PLATELET COUNT 286 10^3/uL (130-400); RED CELL DISTRIBUTION WIDTH 13.5 % (10.0-14.5); WHITE BLOOD COUNT 13.4 10^3/uL (4.3-11.0)
[2018-04-27 05:49] LABS: BUN/CREATININE RATIO 35; CALCIUM 8.7 MG/DL (8.5-10.1); CARBON DIOXIDE 24 MMOL/L (21-32); CHLORIDE 106 MMOL/L (98-107); CREATININE SERUM 0.71 MG/DL (0.60-1.30); GFR ESTIMATED > 60; GLUCOSE 117 MG/DL (70-105); MAGNESIUM 2.2 MG/DL (1.8-2.4); PHOSPHORUS 4.3 MG/DL (2.3-4.7); POTASSIUM 4.4 MMOL/L (3.6-5.0); SODIUM 140 MMOL/L (135-145)
[2018-04-27] MEDS: inSUlin ASPART (NovoLOG) 1 UNIT/0.01 ML (CHARGE PER UNIT) SQ SCH ×4 (05:56→21:32)
[2018-04-27] MEDS: MULTIVIT W/MINERALS TAB (THERAGRAN M) PO SCH (05:57)
--- NOTE | 2018-04-27 06:08 | Pulmonary Progress Note ---
Subjective Time Seen by a Provider: 06:09 Subjective/Events-last exam PT had trouble sleeping last night. Sepsis Event Evaluation Height, Weight, BMI Height: 5'5.00" Weight: 220lbs. 0.0oz. 99.161358dw; 36.6 BMI Method:Estimated Focused Exam Lactate Level 04/24/18 06:44: Lactic Acid Level 1.52 Exam Exam Vital Signs Date Time Temp Pulse Resp B/P (MAP) Pulse Ox O2 Delivery O2 Flow Rate FiO2 04/27/18 04:00 60 20 129/87 (101) 96 High Flow N/C 8.00 04/27/18 02:21 High Flow N/C 8.00 04/27/18 01:00 60 04/27/18 00:00 60 26 110/61 (77) 96 High Flow N/C 9.00 04/26/18 22:15 High Flow N/C 9.00 04/26/18 22:11 94 High Flow N/C 10.00 04/26/18 21:00 94 High Flow N/C 10.00 04/26/18 20:00 60 16 135/69 (91) 96 High Flow N/C 10.00 04/26/18 19:42 97.0 04/26/18 19:39 94 High Flow N/C 10.00 04/26/18 19:00 60 04/26/18 18:00 60 15 152/82 (105) High Flow N/C 10.00 04/26/18 17:00 60 23 155/88 (110) High Flow N/C 10.00 04/26/18 16:00 60 23 137/71 (93) High Flow N/C 10.00 04/26/18 15:00 60 23 147/77 (100) 93 High Flow N/C 10.00 04/26/18 14:23 94 High Flow N/C 10.00 04/26/18 14:00 60 52 146/88 (107) 84 High Flow N/C 10.00 04/26/18 13:18 60 04/26/18 13:00 60 27 147/79 (101) High Flow N/C 10.00 04/26/18 12:00 60 19 138/77 (97) High Flow N/C 10.00 04/26/18 11:00 61 31 114/100 (105) 94 High Flow N/C 10.00 04/26/18 10:25 94 High Flow N/C 6.00 04/26/18 10:00 60 14 133/106 (115) 95 High Flow N/C 10.00 04/26/18 09:00 60 39 145/77 (99) High Flow N/C 10.00 04/26/18 08:00 60 17 133/74 (93) High Flow N/C 10.00 04/26/18 08:00 95 High Flow N/C 10.00 04/26/18 07:01 70 04/26/18 07:00 60 18 138/83 (101) High Flow N/C 10.00 I & O 04/27/18 06:59 Intake Total 2295 ml Output Total 1700 ml Balance 595 ml Height & Weight Height: 5'5.00" Weight: 220lbs. 0.0oz. 99.675798ji; 36.6 BMI Method:Estimated General Appearance: No Apparent Distress, Obese Neck: Supple, Other (hoarse) Respiratory: Lungs Clear, Decreased Breath Sounds Cardiovascular: Regular Rate, Rhythm Capillary Refill: Less Than 3 Seconds Gastrointestinal: normal bowel sounds, non tender, soft Extremity: Other (5/5 motor dylan UE, Dressings CDI, NVSI all dermatomes) Neurologic/Psychiatric: Alert, Oriented x3 Skin: Warm/Dry Lymphatic: No Adenopathy Results Lab Laboratory Tests 04/26/18 04:08 04/27/18 04:40 Assessment/Plan Assessment/Plan S/P Acute respiratory failure secondary to probable vocal cord spasms r/o recurrent laryngeal nerve damage - PT is doing well off vent RLL infiltrate/worsening CXR - WBC is improving, no fevers -Give lasix 40mg x 1 -repeat CXR in AM -PT was on steroids and d/c yesterday -Check BNP -IVF are hep locked -Pt has nonproductive cough. -Cultures and MRSA swab are negative S/p C5-C6 fusion 04/22 Afib - -Amio, digoxin, cardizem -Cardiology following Hx of laryngal spasms -Ativan PRN HX of cardiac arrest 2010 Last EF 50-55% CAD Obesity THERESA COOK DO Apr 27, 2018 06:08
[2018-04-27 08:00] VITALS: BP 124/72
[2018-04-27] MEDS ORDERED: FUROSEMIDE 40 MG/4 ML INJ (LASIX) IVP ONE (09:00)
[2018-04-27] MEDS: meTOprolol TARTRATE 50 MG (LOPRESSOR) TAB PO SCH ×2 (09:15→21:53)
[2018-04-27] MEDS: inSUlin DETERMIR 1 UNIT/0.01 ML (LEVEMIR) CHARGE PER UNIT SQ SCH (09:15)
[2018-04-27] MEDS: FAMOTIDINE 20MG/2ML IV (PEPCID) IVP SCH ×2 (09:15→21:51)
[2018-04-27] MEDS: GABAPENTIN 300 MG (NEURONTIN) CAP PO SCH ×2 (09:15→21:52)
[2018-04-27] MEDS: DILTIAZEM 240 MG (CARDIZEM CD) CAP PO SCH (09:15)
[2018-04-27] MEDS: APIXABAN 5 MG (ELIQUIS) TABLET PO SCH ×2 (09:15→21:52)
[2018-04-27] MEDS: busPIRone 5 MG (BUSPAR) TAB PO SCH ×3 (09:15→21:52)
[2018-04-27] MEDS: SENNOSIDES 8.6 MG (SENOKOT) TAB PO SCH ×2 (09:16→21:52)
--- NOTE | 2018-04-27 09:48 | Diagnostic Imaging Report ---
INDICATION: Pacemaker, infiltrate COMPARISON: 04/26/2018 FINDINGS: Single view chest demonstrates unchanged basilar infiltrates with small effusion on the left. Heart is prominent without pulmonary edema. There is no pneumothorax. Right IJ catheter and pacemaker stable. IMPRESSION: Unchanged aeration of the lungs. Dictated by: Dictated on workstation # [id number]
[2018-04-27 12:00] VITALS: BP 131/75
--- NOTE | 2018-04-27 12:25 | Cardiology Progress Note ---
Cardiology SOAP Progress Note Subjective: Complains of sore throat. Objective: I&O/Vital Signs 04/27/18 04/27/18 04/27/18 04/27/18 01:00 02:21 04:00 06:52 Pulse 60 60 Resp 20 B/P (MAP) 129/87 (101) Pulse Ox 96 96 O2 Delivery High Flow N/C High Flow N/C High Flow N/C O2 Flow Rate 8.00 8.00 6.00 04/27/18 04/27/18 04/27/18 07:00 09:00 10:43 Pulse 60 Pulse Ox 95 97 O2 Delivery High Flow N/C High Flow N/C O2 Flow Rate 10.00 6.00 04/27/18 00:00 Intake Total 2115 ml Output Total 1700 ml Balance 415 ml Weight (Pounds): 220 Weight (Ounces): 0.0 Weight (Calculated Kilograms): 99.734274 Constitutional: AAO x 3 Respiratory: No accessory muscle use, No respiratory distress, No chest tender , No chest expansion is symmetric; chest is bilaterally symmetric; No lungs clear to percussion; lungs clear to auscultation; No crackles, No rhonchi, No rales, No stridor, No wheezing, No pleural rub; other (fair to good bilat air entry) Cardiovascular: regular rate-rhythm; No irregularly irregular, No extra beats, No parasternal heave is noted, No JVD, No edema, No bradycardia, No tachycardia , No point of maximal impulse, No cardiac thrills are palpable; S1 and S2; No gallop/S3, No gallop/S4, No diastolic murmur; systolic murmur (soft WOLF at card base); No friction rub, No click, No other Gastrointestional: No tender; soft; No round, No distended, No pulsatile mass, No organomegaly, No guarding, No rebound, No tenderness, No hernia, No mass; audible bowel sounds; No abnormal bowel sounds, No abdominal bruits, No spleenomegaly, No other Extremities: No normal range of motion, No non-tender, No normal inspection, No pedal edema, No calf tenderness, No normal capillary refill, No pelvis stable , No calf tenderness, No inflammation, No pedal edema, No slow capillary refill , No swelling, No other, No abrasion, No clubbing, No cyanosis, No ecchymosis, No laceration, No no lower extremity edema bilateral, No significant edema, No tenderness, No wound Neurologic/Psychiatric: No mud analysis well logging operator II-XII nml as tested; no motor/sensory deficits , alert, normal mood/affect, oriented x 3; No abnormal cerebellar tests, No abnormal mud analysis well logging operator II-XII, No abnormal gait, No aphasia, No EOM palsy, No facial droop , No motor weakness, No sensory deficit, No depressed affect, No disoriented x 3 , No other; grossly intact; No power is 5/5 both on sides Skin: No normal color, No warm/dry, No cyanosis, No cool, No diaphoresis, No damp, No ecchymosis, No jaundice, No mottled, No pallor, No rash, No tattoos/ piercings, No ulcerations, No rash on exposed areas, No ulcerations on exposed areas, No other Results/Procedures: Labs Laboratory Tests 04/26/18 18:13: Glucometer 236H 04/27/18 04:40: White Blood Count 13.4H, Red Blood Count 3.79L, Hemoglobin 11.3L, Hematocrit 35 , Mean Corpuscular Volume 93, Mean Corpuscular Hemoglobin 30, Mean Corpuscular Hemoglobin Concent 32, Red Cell Distribution Width 13.5, Platelet Count 286, Mean Platelet Volume 9.4, Neutrophils (%) (Auto) 81H, Lymphocytes (%) (Auto) 12 , Monocytes (%) (Auto) 7, Eosinophils (%) (Auto) 0, Basophils (%) (Auto) 0, Neutrophils # (Auto) 10.8H, Lymphocytes # (Auto) 1.6, Monocytes # (Auto) 0.9, Eosinophils # (Auto) 0.0, Basophils # (Auto) 0.1, Sodium Level 140, Potassium Level 4.4, Chloride Level 106, Carbon Dioxide Level 24, Anion Gap 10, Blood Urea Nitrogen 25H, Creatinine 0.71, Estimat Glomerular Filtration Rate > 60, BUN /Creatinine Ratio 35, Glucose Level 117H, Calcium Level 8.7, Phosphorus Level 4.3, Magnesium Level 2.2 04/27/18 10:29: Glucometer 183H Microbiology 04/24/18 Blood Culture - Preliminary, Resulted No growth 04/24/18 Gram Stain - Final, Complete 04/24/18 Sputum Culture - Final, Complete Usual upper respiratory gil A/P: Assessment/Dx: PAF with RVR associated with hypotension - converted to NSR on 04-24-18 S/p spinal fusion surgery and post-op resp failure requiring intubation and mech vent- extubated Echo of 04/23/18: mod concentric LVH, LVEF 65-70%, mild left atrial enlargement, PASP 30-35 mmHg Electrolyte abnormalities - corrected Previous h/o paroxysmal atrial tach and palpitations Chronic migraine headaches. Chronic body pains and fibromyalgia. H/o labile hypertension and postural hypotension History of perioperative bradycardia (asystole) and tachycardia (ventricular fibrillation). 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 MPI of Nov 2017 showed no evidence of significant myocardial ischemia or infarction. LVEF 78% Chronic pain syndrome. Obesity with a body mass index of approximately 36 The patient has been intolerant to statin therapy on account of chronic pain syndrome. DM II, insulin requiring, managed by [facility] human geography instructor Cough of undetermined etiology. Dr Saleem following and has diagnosed restrictive lung disease Suspected LION - awaiting sleep studies at [facility] Bilateral intermittent leg swelling, chornic. Venous insuff study of 02/15/16 did not show DVT or reflux in the deep venous system or valvular insuff of greater or small saphenous system or AASV Less than 40% DANIELLE stenosis, 40-59% LICA stenosis on carotid u/s of 02/03/16 Plan: Plan: * Amio gtt has completed - maintaining SR * Oral Diltiazem. * Continue BB tx * Eliquis for PAF Thank you for your consultation. Please call me if you have any questions. Neeraj Dotson MD, FACP, FACC, FSCAI, FHRS, CCDS Interventional Cardiology Cardiac Electrophysiology Vascular Medicine and Endovascular Interventions Dania DOTSON MD Apr 27, 2018 12:25 pm
--- NOTE | 2018-04-27 15:45 | Progress Note-Hospitalist ---
Subjective HPI/CC On Admission Date Seen by Provider: Apr 27, 2018 Time Seen by Provider: 13:20 Subjective/Events-last exam Other than reported insomnia which the patient states is chronic for her she has been doing well otherwise. She's been awake today hoping sleep better tonight. Nursing staff said she finally did get several hours of sleep last night. She reports some tightness in her chest but nothing around her larynx and there's been no evidence for stridor. Minimal nonproductive cough without pain. Objective Exam Vital Signs Vital Signs Date Time Temp Pulse Resp B/P (MAP) Pulse Ox O2 Delivery O2 Flow Rate FiO2 04/27/18 15:16 97 High Flow N/C 6.00 04/27/18 13:10 60 04/27/18 04:00 20 129/87 (101) 04/26/18 19:42 97.0 04/25/18 06:33 35 Capillary Refill : Less Than 3 SecondsLess Than 3 Seconds General Appearance: No Apparent Distress, Obese Neck: Supple, Other (hoarse) Respiratory: No Accessory Muscle Use, No Respiratory Distress, Decreased Breath Sounds (Some decreased breath sounds in left base unchanged chest elsewhere is clear no stridor wheezing or rhonchi are noted.) Cardiovascular: Regular Rate, Rhythm Gastrointestinal: Normal Bowel Sounds, Non Tender, Soft Rectal: Deferred Back: No CVA Tenderness Extremity: Other (5/5 motor dylan UE, Dressings CDI, NVSI all dermatomes) Neurologic/Psychiatric: Alert, Oriented x3 Skin: Warm/Dry Lymphatic: No Adenopathy Results/Procedures Lab Laboratory Tests 04/27/18 04:40 Patient resulted labs reviewed. Assessment/Plan Assessment and Plan Assess & Plan/Chief Complaint 1. Postoperative respiratory failure suspect laryngospasm not new for this patient's without evidence for recurrence. 2. Possible aspiration pneumonitis while chest x-ray shows little more infiltration patient's respiratory status is improved with declining oxygen requirements and no evidence for respiratory distress. While patient is still intensive care unit it is just because of bed is not been available on the floor transfer when there is bed availability. 3. Apparent long history of generalized anxiety aggravating laryngospasm true asthma doubtful continue anxiolytic therapy. 4. Tachyarrhythmia likely secondary distress and racemic epinephrine without recurrence on beta kriss therapy. Defer to cardiology for further management and whether or not she will require high-dose long-term beta kriss therapy. Critical Care Critically Ill Patient Clinical Quality Measures DVT/VTE Risk/Contraindication: Risk Factor Score Per Nursin RFS Level Per Nursing on Admit: 4+=Very High STEFANO MATOS MD Apr 27, 2018 15:45
--- NOTE | 2018-04-27 15:56 | Progress Note-Hospitalist ---
Subjective HPI/CC On Admission Date Seen by Provider: Apr 26, 2018 Time Seen by Provider: 12:30 Subjective/Events-last exam Patient reports she did not sleep well last night but denies pain or shortness of breath. She denies stridor but has noticed some chest tightness. She's had a mild nonproductive cough. She denies neck pain is moving all extremities without any reported numbness. Objective Exam Vital Signs Vital Signs Date Time Temp Pulse Resp B/P (MAP) Pulse Ox O2 Delivery O2 Flow Rate FiO2 04/27/18 15:16 97 High Flow N/C 6.00 04/27/18 13:10 60 04/27/18 04:00 20 129/87 (101) 04/26/18 19:42 97.0 04/25/18 06:33 35 Capillary Refill : Less Than 3 SecondsLess Than 3 Seconds General Appearance: No Apparent Distress, Obese Neck: Supple, Other (hoarse) Respiratory: No Accessory Muscle Use, No Respiratory Distress, Decreased Breath Sounds (Some decreased breath sounds in left base unchanged chest elsewhere is clear no stridor wheezing or rhonchi are noted.) Cardiovascular: Regular Rate, Rhythm Gastrointestinal: Normal Bowel Sounds, Non Tender, Soft Rectal: Deferred Back: No CVA Tenderness Extremity: Other (5/5 motor dylan UE, Dressings CDI, NVSI all dermatomes) Neurologic/Psychiatric: Alert, Oriented x3 Skin: Warm/Dry Lymphatic: No Adenopathy Results/Procedures Lab Laboratory Tests 04/27/18 04:40 Patient resulted labs reviewed. Assessment/Plan Assessment and Plan Assess & Plan/Chief Complaint 1. Postoperative respiratory failure suspect laryngospasm not new for this patient's without evidence for recurrence. 2. Possible aspiration pneumonitis while chest x-ray shows little more infiltration although patient's respiratory status is improved with declining oxygen requirements and no evidence for respiratory distress. While patient is still intensive care unit it is just because of bed is not been available on the floor transfer when there is bed availability. 3. Apparent long history of generalized anxiety aggravating laryngospasm true asthma doubtful continue anxiolytic therapy. 4. Tachyarrhythmia likely secondary distress and racemic epinephrine without recurrence on beta kriss therapy. Defer to cardiology for further management and whether or not she will require high-dose long-term beta kriss therapy. 5. Postop day 5 status post ACDF appears to be stable from a spine standpoint as well. Critical Care Critically Ill Patient Clinical Quality Measures DVT/VTE Risk/Contraindication: Risk Factor Score Per Nursin RFS Level Per Nursing on Admit: 4+=Very High STEFANO MATOS MD Apr 27, 2018 15:56
[2018-04-27 16:00] VITALS: BP 136/73
[2018-04-27] MEDS: PRAMIPEXOLE 0.5 MG TAB (MIRAPEX) PO SCH (16:47)
--- NOTE | 2018-04-27 19:15 | NUR ---
TO FLOOR -- HAD GOTTEN REPORT OVER PHONE FROM FIRE PREVENTION OFFICER -- Addendum: 04/27/18 at 1938 by RAUL SALAZAR RN PT IS RESTING IN BED DENIES ANY DISCOMFORT --
[2018-04-27 20:00] VITALS: BP 153/84
[2018-04-27] MEDS: GABAPENTIN 100 MG (NEURONTIN) CAP PO SCH (21:52)
[2018-04-27] MEDS: MELATONIN 3 MG TABLET PO SCH (21:52)
[2018-04-28] VITALS (7 sets, daily range): BP systolic 109–164; BP diastolic 57–87
[2018-04-28] MEDS: RT-ALBUTEROL/IPRATROPIUM 3 ML (DUONEB) VIAL INH SCH ×6 (02:13→22:38)
[2018-04-28] MEDS: inSUlin ASPART (NovoLOG) 1 UNIT/0.01 ML (CHARGE PER UNIT) SQ SCH ×4 (05:00→20:39)
[2018-04-28 05:47] LABS: BASOPHILS % (AUTO) 0 % (0-10); EOSINOPHILS # (AUTO) 0.1 10^3/uL (0.0-0.3); EOSINOPHILS % (AUTO) 1 % (0-10); HEMATOCRIT 37 % (35-52); HEMOGLOBIN 11.9 G/DL (11.5-16.0); LYMPHOCYTES # (AUTO) 3.7 X 10^3 (1.0-4.0); LYMPHOCYTES % (AUTO) 26 % (12-44); MEAN CORPUSCULAR HEMOGLOBIN 30 PG (25-34); MEAN CORPUSCULAR HGB CONC 32 G/DL (32-36); MEAN CORPUSCULAR VOLUME 93 FL (80-99); MEAN PLATELET VOLUME 9.4 FL (7.4-10.4); MONOCYTES % (AUTO) 7 % (0-12); NEUTROPHILS # (AUTO) 9.4 X 10^3 (1.8-7.8); NEUTROPHILS % (AUTO) 66 % (42-75); PLATELET COUNT 292 10^3/uL (130-400); RED CELL DISTRIBUTION WIDTH 13.6 % (10.0-14.5); WHITE BLOOD COUNT 14.1 10^3/uL (4.3-11.0)
[2018-04-28 06:08] LABS: BUN/CREATININE RATIO 30; CALCIUM 8.7 MG/DL (8.5-10.1); CARBON DIOXIDE 29 MMOL/L (21-32); CHLORIDE 100 MMOL/L (98-107); CREATININE SERUM 0.79 MG/DL (0.60-1.30); GFR ESTIMATED > 60; GLUCOSE 179 MG/DL (70-105); MAGNESIUM 1.6 MG/DL (1.8-2.4); PHOSPHORUS 4.5 MG/DL (2.3-4.7); POTASSIUM 3.7 MMOL/L (3.6-5.0); SODIUM 139 MMOL/L (135-145)
[2018-04-28] MEDS: MULTIVIT W/MINERALS TAB (THERAGRAN M) PO SCH (06:30)
--- NOTE | 2018-04-28 06:57 | NUR ---
PATIENT JUST GOT DONE WITH BREAKFAST; SHE IS STARTING TO SOUND JUNKY AGAIN.
[2018-04-28] MEDS: busPIRone 5 MG (BUSPAR) TAB PO SCH ×3 (09:18→21:08)
[2018-04-28] MEDS: APIXABAN 5 MG (ELIQUIS) TABLET PO SCH ×2 (09:18→21:10)
[2018-04-28] MEDS: GABAPENTIN 300 MG (NEURONTIN) CAP PO SCH ×2 (09:18→21:09)
[2018-04-28] MEDS: meTOprolol TARTRATE 50 MG (LOPRESSOR) TAB PO SCH ×2 (09:18→21:09)
[2018-04-28] MEDS: DILTIAZEM 240 MG (CARDIZEM CD) CAP PO SCH (09:18)
[2018-04-28] MEDS: FAMOTIDINE 20MG/2ML IV (PEPCID) IVP SCH ×2 (09:18→21:08)
[2018-04-28] MEDS: SENNOSIDES 8.6 MG (SENOKOT) TAB PO SCH ×2 (09:18→21:08)
[2018-04-28] MEDS: inSUlin DETERMIR 1 UNIT/0.01 ML (LEVEMIR) CHARGE PER UNIT SQ SCH (09:19)
--- NOTE | 2018-04-28 09:38 | Progress Note-Cardiology ---
Cardiology SOAP Progress Note Subjective: Sitting up in bed. States she is not sleeping well. No c/o CP, dyspnea. C/O gen weakness. C/O episode of palpitations yesterday which lasted for a "few seconds". Objective: I&O/Vital Signs 04/28/18 04/28/18 04/28/18 04/28/18 02:14 04:15 06:50 08:00 Temp 98.0 98.2 Pulse 61 62 Resp 20 22 B/P (MAP) 160/87 (111) 164/75 (104) Pulse Ox 94 98 94 96 O2 Delivery High Flow N/C High Flow N/C High Flow N/C High Flow N/C O2 Flow Rate 6.00 5.00 6.00 04/28/18 04/28/18 04/28/18 09:00 10:44 12:00 Temp 97.9 Pulse 60 Resp 20 B/P (MAP) 134/79 (97) Pulse Ox 93 93 96 O2 Delivery High Flow N/C High Flow N/C High Flow N/C O2 Flow Rate 5.00 5.00 6.00 04/28/18 00:00 Intake Total 1275 ml Output Total 3700 ml Balance -2425 ml Weight (Pounds): 220 Weight (Ounces): 0.0 Weight (Calculated Kilograms): 99.576457 Constitutional: AAO x 3 Respiratory: chest is bilaterally symmetric, lungs clear to auscultation Cardiovascular: regular rate-rhythm, S1 and S2, systolic murmur (soft WOLF at card base) Gastrointestional: soft, audible bowel sounds Extremities: No significant edema Neurologic/Psychiatric: grossly intact Skin: No rash, No ulcerations Results/Procedures: Labs Laboratory Tests 04/27/18 16:45: Glucometer 183H 04/27/18 21:25: Glucometer 120H 04/28/18 04:58: Glucometer 169H 04/28/18 05:00: White Blood Count 14.1H, Red Blood Count 3.97L, Hemoglobin 11.9, Hematocrit 37, Mean Corpuscular Volume 93, Mean Corpuscular Hemoglobin 30, Mean Corpuscular Hemoglobin Concent 32, Red Cell Distribution Width 13.6, Platelet Count 292, Mean Platelet Volume 9.4, Neutrophils (%) (Auto) 66, Lymphocytes (%) (Auto) 26, Monocytes (%) (Auto) 7, Eosinophils (%) (Auto) 1, Basophils (%) (Auto) 0, Neutrophils # (Auto) 9.4H, Lymphocytes # (Auto) 3.7, Monocytes # (Auto) 1.0, Eosinophils # (Auto) 0.1, Basophils # (Auto) 0.0, Sodium Level 139, Potassium Level 3.7, Chloride Level 100, Carbon Dioxide Level 29, Anion Gap 10, Blood Urea Nitrogen 24H, Creatinine 0.79, Estimat Glomerular Filtration Rate > 60, BUN /Creatinine Ratio 30, Glucose Level 179H, Calcium Level 8.7, Phosphorus Level 4.5, Magnesium Level 1.6L 04/28/18 11:18: Glucometer 166H Microbiology 04/24/18 Blood Culture - Preliminary, Resulted No growth 04/24/18 Gram Stain - Final, Complete 04/24/18 Sputum Culture - Final, Complete Usual upper respiratory gil Procedures NAME: JOCELYN JACOBO [facility] REC#: [id number] PT STATUS: ADM IN : 12/20/1921 PHYSICIAN: ELINOR RIVERS MD ADMIT DATE: 04/24/18/ Signed Date of Exam: 04/27/18 CHEST PA/LAT (2 VIEW) INDICATION: Atelectasis. PA and lateral views of the chest are obtained with comparison made to study of 04/25/2018. FINDINGS: There is an increase in left basilar density which may be due to combination of atelectasis, pleural fluid and possible pneumonitis. Pulmonary vascularity is at the upper limits of normal. No pneumothorax identified. There is mild blunting of right costophrenic sulcus. IMPRESSION: Mild increase in pleural fluid, greater on the left with increasing left basilar atelectasis and/or pneumonitis. Dictated by: Dictated on workstation # [id number] Dict: 04/27/1842 Trans: 04/27/18 102 Interpreted by: GONZALO ANAND MD Electronically signed by: GONZALO ANAND MD 04/27/18 1022 A/P: Assessment: PAF with RVR associated with hypotension - converted to NSR on 04-24-18 Eliquis for stroke prophylaxis S/p spinal fusion surgery and post-op resp failure requiring intubation and [facility] vent- extubated Echo of 04/23/18: mod concentric LVH, LVEF 65-70%, mild left atrial enlargement, PASP 30-35 mmHg Electrolyte abnormalities - corrected Previous h/o paroxysmal atrial tach and palpitations Chronic migraine headaches. Chronic body pains and fibromyalgia. H/o labile hypertension and postural hypotension History of perioperative bradycardia (asystole) and tachycardia (ventricular fibrillation). 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 MPI of Nov 2017 showed no evidence of significant myocardial ischemia or infarction. LVEF 78% Chronic pain syndrome. Obesity with a body mass index of approximately 36 The patient has been intolerant to statin therapy on account of chronic pain syndrome. DM II, insulin requiring, managed by [facility] senior property manager Cough of undetermined etiology. Dr Saleem following and has diagnosed restrictive lung disease Suspected LION - awaiting sleep studies at [facility] Bilateral intermittent leg swelling, chornic. Venous insuff study of 02/15/16 did not show DVT or reflux in the deep venous system or valvular insuff of greater or small saphenous system or AASV Less than 40% DANIELLE stenosis, 40-59% LICA stenosis on carotid u/s of 02/03/16 Plan: Continue current medication regimen Monitor lab closely Replace Mag Telemetry Physician Assessment Physician Assessment Notes gen malaise. Denies palp or syncope or cp or shortness of breath at rest Lungs: fair to good air entry, diminished at the bases Cor: reg Ext: no c/c/e A&R * As documented in our note above that I updated (italics) and as noted below * Continue current regimen * Monitor and correct labs * I answered her CV-related questions YASMANI HAMILTON NET DEVELOPER Apr 28, 2018 09:38 ULI YOO MD FACP [facility] CCDS Apr 28, 2018 13:32
[2018-04-28] MEDS: MAGNESIUM 1 GM/100 ML IVPB 100 ML IV SCH ×2 (10:24→11:24)
--- NOTE | 2018-04-28 11:56 | Physical Therapy Daily Note ---
PT Daily Note-Current Subjective Patient agrees to PT. Pain Numeric Pain Scale: 0-No Pain Location: No Pain Reported Mental Status Patient Orientation: Normal For Age Attachments: Oxygen, Hopper Catheter, IV Transfers Therapy Code Descriptions/Definitions Functional Crum Measure: 0=Not Assessed/NA 4=Minimal Assistance 1=Total Assistance 5=Supervision or Setup 2=Maximal Assistance 6=Modified Crum 3=Moderate Assistance 7=Complete Crum Therapy Quality Codes: 6 Independent with activity with or without an assistive device 5 Patient requires set up or clean up by helper. Patient completes activity by themselves 4 Supervision or touching assist (CGA). [place] provide cues , steadying assist 3 The helper provides less than half the effort to complete the activity 2 The helper provides more than half the effort to complete the activity 1 Dependent. The helper does all the effort to complete an activity 7 Patient refused to complete or attempt activity 9 The patient did not perform the activity before the current illness or injury 88 Not attempted due to Medical conditions or safety concerns Transfers (B, C, W/C) (FIM): 4 Scootin Rollin Supine to/from Sit: 5 Sit to/from Stand: 4 Bed to/from Chair: 4 Weight Bearing Right Lower Extremity: Right Full Weight Bearing Left Lower Extremity: Left Full Weight Bearing Gait Training Gait (FIM): 2 Distance (FIM): 5=417-36 ft Distance: 60' Gait Level of Assist: 4 Gait Persons Needed: 1 Gait Assistive Device: FWW steady functional gait sequence Exercises Seated Therapy Exercises: Ankle pumps, Long arc quads, Hip flexion Seated Reps: 15 Assessment Patient tolerated treatment well and is up in recliner with needs met. Patient is highly motivated with progress. PT Short Term Goals Short Term Goals Time Frame: May 02, 2018 Transfers (B,C,W/C) (FIM): 4 Gait (FIM): 1 Distance (FIM): 1=up to 49 ft Gait Distance Comment: 25' Gait Level of Assist: 4 Gait Assistive Device: FWW PT Plan Treatment/Plan Treatment Plan: Continue Plan of Care Treatment Plan: Bed Mobility, Education, Functional Activity Eileen, Functional Strength, Gait, Safety, Therapeutic Exercise, Transfers Treatment Duration: May 02, 2018 Frequency: 6 times per week Estimated Hrs Per Day: .25 hour per day Patient and/or Family Agrees t: Yes Time/GCodes Time In: 1103 Time Out: 1114 Total Billed Treatment Time: 11 Total Billed Treatment 1 visit FA 11 min IRENE NEGRO PT Apr 28, 2018 11:56
--- NOTE | 2018-04-28 15:16 | NUR ---
LEFT MESSAGE FOR DR REVELES. PATIENT'S HAS COMPLAINTS OF SORE MOUTH WITH MAYBE SOME BLISTERS IN THE BACK. TONGUE HAS A WHITISH/PALE COLOR ON THE THE TOP.
--- NOTE | 2018-04-28 15:27 | Pulmonary Progress Note ---
Subjective Time Seen by a Provider: 16:21 Subjective/Events-last exam Pt is doing better Sepsis Event Evaluation Height, Weight, BMI Height: 5'5.00" Weight: 220lbs. 0.0oz. 99.228038rt; 36.6 BMI Method:Estimated Exam Exam Vital Signs Date Time Temp Pulse Resp B/P (MAP) Pulse Ox O2 Delivery O2 Flow Rate FiO2 04/28/18 14:27 92 High Flow N/C 4.00 04/28/18 13:01 60 04/28/18 12:00 97.9 60 20 134/79 (97) 96 High Flow N/C 6.00 04/28/18 11:45 60 04/28/18 10:44 93 High Flow N/C 5.00 04/28/18 09:00 93 High Flow N/C 5.00 04/28/18 08:00 98.2 62 22 164/75 (104) 96 High Flow N/C 6.00 04/28/18 06:50 94 High Flow N/C 5.00 04/28/18 04:15 98.0 61 20 160/87 (111) 98 High Flow N/C 04/28/18 02:14 94 High Flow N/C 6.00 04/28/18 00:01 98.0 60 22 135/65 (88) 96 High Flow N/C 6.00 04/27/18 22:32 93 High Flow N/C 6.00 04/27/18 20:10 High Flow N/C 6.00 04/27/18 20:00 98.2 60 22 153/84 (107) 95 High Flow N/C 6.00 04/27/18 18:22 96 High Flow N/C 5.00 04/27/18 16:00 60 21 136/73 (94) 97 High Flow N/C 6.00 I & O 04/28/18 07:00 Intake Total 1475 ml Output Total 5100 ml Balance -3625 ml Height & Weight Height: 5'5.00" Weight: 220lbs. 0.0oz. 99.040645ig; 36.6 BMI Method:Estimated General Appearance: No Apparent Distress, Obese Neck: Supple, Other (hoarse) Respiratory: No Accessory Muscle Use, No Respiratory Distress, Decreased Breath Sounds (Some decreased breath sounds in left base unchanged chest elsewhere is clear no stridor wheezing or rhonchi are noted.) Cardiovascular: Regular Rate, Rhythm Capillary Refill: Less Than 3 Seconds Gastrointestinal: normal bowel sounds, non tender, soft Extremity: Other (5/5 motor dylan UE, Dressings CDI, NVSI all dermatomes) Neurologic/Psychiatric: Alert, Oriented x3 Skin: Warm/Dry Lymphatic: No Adenopathy Results Lab Laboratory Tests 04/27/18 04:40 04/28/18 05:00 Assessment/Plan Assessment/Plan S/P Acute respiratory failure secondary to probable vocal cord spasms - PT is doing well off vent RLL infiltrate/worsening CXR - WBC is improving, no fevers -IVF are hep locked -Pt has nonproductive cough. -Cultures and MRSA swab are negative S/p C5-C6 fusion 04/22 Afib - -Amio, digoxin, cardizem -Cardiology following Hx of laryngal spasms -Ativan PRN HX of cardiac arrest 2010 Last EF 50-55% CAD Obesity THERESA COOK DO Apr 28, 2018 15:27
[2018-04-28] MEDS: PRAMIPEXOLE 0.5 MG TAB (MIRAPEX) PO SCH (17:07)
--- NOTE | 2018-04-28 18:23 | Progress Note (SOAP) ---
Subjective Date Seen by a Provider: Apr 28, 2018 Time Seen by a Provider: 12:45 Subjective/Events-last exam Fwup Acute Post-Op Respiratory Failure, Stridor/Laryngospasm, COPD, Post-op SVT /V Tach, Diabetes mellitus--insulin requiring. Sitting up in chair. C/O insomnia. C/O very weak. Objective Exam Vital Signs Date Time Temp Pulse Resp B/P (MAP) Pulse Ox O2 Delivery O2 Flow Rate FiO2 04/28/18 16:00 97.5 60 22 128/70 (89) 94 High Flow N/C 6.00 04/28/18 14:27 92 High Flow N/C 4.00 04/28/18 13:01 60 04/28/18 12:00 97.9 60 20 134/79 (97) 96 High Flow N/C 6.00 04/28/18 11:45 60 04/28/18 10:44 93 High Flow N/C 5.00 04/28/18 09:00 93 High Flow N/C 5.00 04/28/18 08:00 98.2 62 22 164/75 (104) 96 High Flow N/C 6.00 04/28/18 06:50 94 High Flow N/C 5.00 04/28/18 04:15 98.0 61 20 160/87 (111) 98 High Flow N/C 04/28/18 02:14 94 High Flow N/C 6.00 04/28/18 00:01 98.0 60 22 135/65 (88) 96 High Flow N/C 6.00 04/27/18 22:32 93 High Flow N/C 6.00 04/27/18 20:10 High Flow N/C 6.00 04/27/18 20:00 98.2 60 22 153/84 (107) 95 High Flow N/C 6.00 04/27/18 18:22 96 High Flow N/C 5.00 I & O 04/28/18 07:00 Intake Total 1475 ml Output Total 5100 ml Balance -3625 ml Capillary Refill : Less Than 3 SecondsLess Than 3 Seconds General Appearance: No Apparent Distress Neck: Supple Respiratory: Rales (upper airway coarseness) Cardiovascular: Regular Rate, Rhythm Gastrointestinal: normal bowel sounds, non tender, soft Extremity: Non Tender, No Calf Tenderness, No Pedal Edema Neurologic/Psychiatric: Alert, Oriented x3 Skin: Warm/Dry Results Lab Laboratory Tests 04/27/18 21:25: Glucometer 120H 04/28/18 04:58: Glucometer 169H 04/28/18 05:00: White Blood Count 14.1H, Red Blood Count 3.97L, Hemoglobin 11.9, Hematocrit 37, Mean Corpuscular Volume 93, Mean Corpuscular Hemoglobin 30, Mean Corpuscular Hemoglobin Concent 32, Red Cell Distribution Width 13.6, Platelet Count 292, Mean Platelet Volume 9.4, Neutrophils (%) (Auto) 66, Lymphocytes (%) (Auto) 26, Monocytes (%) (Auto) 7, Eosinophils (%) (Auto) 1, Basophils (%) (Auto) 0, Neutrophils # (Auto) 9.4H, Lymphocytes # (Auto) 3.7, Monocytes # (Auto) 1.0, Eosinophils # (Auto) 0.1, Basophils # (Auto) 0.0, Sodium Level 139, Potassium Level 3.7, Chloride Level 100, Carbon Dioxide Level 29, Anion Gap 10, Blood Urea Nitrogen 24H, Creatinine 0.79, Estimat Glomerular Filtration Rate > 60, BUN /Creatinine Ratio 30, Glucose Level 179H, Calcium Level 8.7, Phosphorus Level 4.5, Magnesium Level 1.6L 04/28/18 11:18: Glucometer 166H 04/28/18 15:59: Glucometer 178H Microbiology 04/24/18 Blood Culture - Preliminary, Resulted No growth 04/24/18 Gram Stain - Final, Complete 04/24/18 Sputum Culture - Final, Complete Usual upper respiratory gil Assessment/Plan Assessment/Plan Assess & Plan/Chief Complaint 1. Acute Respiratory Failure--on NC 2. Postop Stridor--currently resolved 3. Diabetes mellitus--increase levemir dose and continue SSI 4. COPD--stable 5. SVT/V Tach--resolved/stable 6. Hypotension/Hypothermia--resolved 7. Insomnia--trial of doxepin 8. Weakness--PT/OT--may need SWING bed vs Rehab Clinical Quality Measures Admission Status Admission Dx 1. Post-op stridor with unstable airway--sedated and intubated on ventilator 2. 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 Hypertensive Urgency with SVT--responded to IV cardizem, likely in response to racemic epi 4. Cervical Spinal Stenosis with Anterior C5-C6 fusion--check stat CT of soft tissues to rule out hematoma DVT/VTE Risk/Contraindication: Risk Factor Score Per Nursin RFS Level Per Nursing on Admit: 4+=Very High NANNETTE REVELES DO Apr 28, 2018 18:23
[2018-04-28] MEDS ORDERED: DOXEPIN 10 MG (SINEquan) CAP PO SCH (21:00)
[2018-04-28] MEDS: GABAPENTIN 100 MG (NEURONTIN) CAP PO SCH (21:08)
[2018-04-28] MEDS: MELATONIN 3 MG TABLET PO SCH (21:08)
[2018-04-28] MEDS: oxyCODONE/APAP 5/325MG (PERCOCET 5) TABLET PO PRN (21:18)
[2018-04-28] MEDS: ACETAMINOPHEN 325 MG TABLET PO PRN (21:18)
[2018-04-29] MEDS: RT-ALBUTEROL/IPRATROPIUM 3 ML (DUONEB) VIAL INH SCH ×7 (03:05→23:25)
[2018-04-29 03:48] VITALS: BP 110/59
[2018-04-29 05:35] LABS: BASOPHILS % (AUTO) 0 % (0-10); EOSINOPHILS # (AUTO) 0.3 10^3/uL (0.0-0.3); EOSINOPHILS % (AUTO) 2 % (0-10); HEMATOCRIT 37 % (35-52); LYMPHOCYTES # (AUTO) 2.8 X 10^3 (1.0-4.0); LYMPHOCYTES % (AUTO) 20 % (12-44); MEAN CORPUSCULAR HEMOGLOBIN 30 PG (25-34); MEAN CORPUSCULAR HGB CONC 32 G/DL (32-36); MEAN CORPUSCULAR VOLUME 93 FL (80-99); MONOCYTES # (AUTO) 0.9 X 10^3 (0.0-1.0); MONOCYTES % (AUTO) 7 % (0-12); NEUTROPHILS # (AUTO) 9.9 X 10^3 (1.8-7.8); NEUTROPHILS % (AUTO) 71 % (42-75); PLATELET COUNT 260 10^3/uL (130-400); RED CELL DISTRIBUTION WIDTH 13.5 % (10.0-14.5); WHITE BLOOD COUNT 13.9 10^3/uL (4.3-11.0)
[2018-04-29 05:52] LABS: BUN/CREATININE RATIO 23; CALCIUM 8.6 MG/DL (8.5-10.1); CARBON DIOXIDE 31 MMOL/L (21-32); CHLORIDE 97 MMOL/L (98-107); CREATININE SERUM 0.66 MG/DL (0.60-1.30); GFR ESTIMATED > 60; GLUCOSE 79 MG/DL (70-105); MAGNESIUM 1.6 MG/DL (1.8-2.4); PHOSPHORUS 5.2 MG/DL (2.3-4.7); POTASSIUM 3.4 MMOL/L (3.6-5.0); SODIUM 138 MMOL/L (135-145)
[2018-04-29] MEDS: MULTIVIT W/MINERALS TAB (THERAGRAN M) PO SCH (05:55)
[2018-04-29] MEDS: inSUlin ASPART (NovoLOG) 1 UNIT/0.01 ML (CHARGE PER UNIT) SQ SCH ×4 (05:55→22:07)
--- NOTE | 2018-04-29 07:16 | NUR ---
SPO2 82% ON ROOM AIR @ REST. REPLACED OXYGEN @ 3 LPM. SPO2 INCREASED TO 92%.
--- NOTE | 2018-04-29 07:25 | Pulmonary Progress Note ---
Subjective Time Seen by a Provider: 08:13 Subjective/Events-last exam Pt complains of loose nonproductive cough. Sepsis Event Evaluation Height, Weight, BMI Height: 5'5.00" Weight: 220lbs. 0.0oz. 99.093834uf; 36.6 BMI Method:Estimated Exam Exam Vital Signs Date Time Temp Pulse Resp B/P (MAP) Pulse Ox O2 Delivery O2 Flow Rate FiO2 04/29/18 03:48 96.8 67 20 110/59 (76) 95 High Flow N/C 4.00 04/29/18 03:05 95 High Flow N/C 4.00 04/29/18 01:00 60 04/28/18 23:25 98.0 60 20 109/57 (74) 95 High Flow N/C 4.00 04/28/18 22:38 95 High Flow N/C 4.00 04/28/18 20:25 95 High Flow N/C 4.00 04/28/18 19:54 98.6 62 22 138/75 (96) 91 High Flow N/C 6.00 04/28/18 19:00 64 04/28/18 18:49 92 High Flow N/C 4.00 04/28/18 16:00 97.5 60 22 128/70 (89) 94 High Flow N/C 6.00 04/28/18 14:27 92 High Flow N/C 4.00 04/28/18 13:01 60 04/28/18 12:00 97.9 60 20 134/79 (97) 96 High Flow N/C 6.00 04/28/18 11:45 60 04/28/18 10:44 93 High Flow N/C 5.00 04/28/18 09:00 93 High Flow N/C 5.00 04/28/18 08:00 98.2 62 22 164/75 (104) 96 High Flow N/C 6.00 I & O 04/29/18 07:00 Intake Total 1570 ml Output Total 4050 ml Balance -2480 ml Height & Weight Height: 5'5.00" Weight: 220lbs. 0.0oz. 99.657575qo; 36.6 BMI Method:Estimated General Appearance: No Apparent Distress, Anxious Neck: Supple Respiratory: Crackles, Decreased Breath Sounds, Rales (upper airway coarseness) Cardiovascular: Regular Rate, Rhythm Capillary Refill: Less Than 3 Seconds Gastrointestinal: normal bowel sounds, non tender, soft Extremity: Non Tender, No Calf Tenderness, No Pedal Edema Neurologic/Psychiatric: Alert, Oriented x3 Skin: Warm/Dry Lymphatic: No Adenopathy Results Lab Laboratory Tests 04/28/18 05:00 04/29/18 05:25 Assessment/Plan Assessment/Plan S/P Acute respiratory failure secondary to probable vocal cord spasms - PT is doing well off vent RLL infiltrate/worsening CXR - WBC is improving, no fevers -IVF are hep locked -Pt has nonproductive cough. -Cultures and MRSA swab are negative Hypokalemia, hypomag -replace S/p C5-C6 fusion 04/22 Afib - -Amio, digoxin, cardizem -Cardiology following Hx of laryngal spasms -Ativan PRN HX of cardiac arrest 2010 Last EF 50-55% CAD Obesity THERESA COOK DO Apr 29, 2018 07:25
[2018-04-29] MEDS ORDERED: KCL 10 MEQ TAB (MICRO K) PO NR (07:30)
--- NOTE | 2018-04-29 08:03 | Diagnostic Imaging Report ---
INDICATION: Stenosis. COMPARISON: 04/27/2018. FINDINGS: There has been complete resolution of right basilar pulmonary opacity and improvements in left basilar density. On the left, there is an element of volume loss and atelectasis presumed. No pneumothorax. IMPRESSION: Mild residual presumed atelectatic changes left base, the right lower lobe and middle lobe have cleared in the interim. No pneumothorax. No adverse change. Dictated by: Dictated on workstation # [id number]
[2018-04-29] MEDS: DOCUSATE SODIUM 100 MG (COLACE) CAP PO PRN (08:26)
[2018-04-29] MEDS: FAMOTIDINE 20MG/2ML IV (PEPCID) IVP SCH ×2 (08:26→20:19)
[2018-04-29] MEDS: busPIRone 5 MG (BUSPAR) TAB PO SCH ×3 (08:26→20:22)
[2018-04-29] MEDS: DILTIAZEM 240 MG (CARDIZEM CD) CAP PO SCH (08:26)
[2018-04-29] MEDS: GABAPENTIN 300 MG (NEURONTIN) CAP PO SCH ×2 (08:26→20:22)
[2018-04-29] MEDS: SENNOSIDES 8.6 MG (SENOKOT) TAB PO SCH ×2 (08:26→20:28)
[2018-04-29] MEDS: inSUlin DETERMIR 1 UNIT/0.01 ML (LEVEMIR) CHARGE PER UNIT SQ SCH (08:27)
[2018-04-29] MEDS: APIXABAN 5 MG (ELIQUIS) TABLET PO SCH ×2 (08:27→20:22)
[2018-04-29] MEDS: meTOprolol TARTRATE 50 MG (LOPRESSOR) TAB PO SCH ×2 (08:27→20:23)
[2018-04-29] MEDS: MAGNESIUM 1 GM/100 ML IVPB 100 ML IV SCH ×3 (08:39→10:39)
[2018-04-29 08:45] VITALS: BP 119/57
--- NOTE | 2018-04-29 08:54 | Progress Note-Cardiology ---
Cardiology SOAP Progress Note Subjective: Sitting up in a recliner at the bedside. C/O feeling tired. No c/o CP or palpitations. Objective: I&O/Vital Signs 04/28/18 04/29/18 04/29/18 04/29/18 23:25 01:00 03:05 03:48 Temp 98.0 96.8 Pulse 60 60 67 Resp 20 20 B/P (MAP) 109/57 (74) 110/59 (76) Pulse Ox 95 95 95 O2 Delivery High Flow N/C High Flow N/C High Flow N/C O2 Flow Rate 4.00 4.00 4.00 04/29/18 04/29/18 04/29/18 07:01 07:16 08:45 Temp 97.3 Pulse 62 60 Resp 22 B/P (MAP) 119/57 (77) Pulse Ox 82 97 O2 Delivery Room Air High Flow N/C O2 Flow Rate 3.00 04/29/18 00:00 Intake Total 1470 ml Output Total 2875 ml Balance -1405 ml Weight (Pounds): 220 Weight (Ounces): 0.0 Weight (Calculated Kilograms): 99.385970 Constitutional: AAO x 3 Respiratory: chest is bilaterally symmetric, lungs clear to auscultation Cardiovascular: regular rate-rhythm, S1 and S2, systolic murmur (soft WOLF at card base) Gastrointestional: soft, audible bowel sounds Extremities: No significant edema Neurologic/Psychiatric: grossly intact Skin: No rash, No ulcerations Results/Procedures: Labs Laboratory Tests 04/28/18 15:59: Glucometer 178H 04/28/18 19:58: Glucometer 161H 04/29/18 05:25: White Blood Count 13.9H, Red Blood Count 4.00L, Hemoglobin 12.0, Hematocrit 37, Mean Corpuscular Volume 93, Mean Corpuscular Hemoglobin 30, Mean Corpuscular Hemoglobin Concent 32, Red Cell Distribution Width 13.5, Platelet Count 260, Mean Platelet Volume 9.0, Neutrophils (%) (Auto) 71, Lymphocytes (%) (Auto) 20, Monocytes (%) (Auto) 7, Eosinophils (%) (Auto) 2, Basophils (%) (Auto) 0, Neutrophils # (Auto) 9.9H, Lymphocytes # (Auto) 2.8, Monocytes # (Auto) 0.9, Eosinophils # (Auto) 0.3, Basophils # (Auto) 0.0, Sodium Level 138, Potassium Level 3.4L, Chloride Level 97L, Carbon Dioxide Level 31, Anion Gap 10, Blood Urea Nitrogen 15, Creatinine 0.66, Estimat Glomerular Filtration Rate > 60, BUN/ Creatinine Ratio 23, Glucose Level 79, Calcium Level 8.6, Phosphorus Level 5.2H , Magnesium Level 1.6L Microbiology 04/24/18 Blood Culture - Final, Complete No growth 04/24/18 Gram Stain - Final, Complete 04/24/18 Sputum Culture - Final, Complete Usual upper respiratory gil A/P: Assessment: PAF with RVR associated with hypotension - converted to NSR on 04-24-18 Eliquis for stroke prophylaxis S/p spinal fusion surgery and post-op resp failure [facility] Echo of 04/23/18: mod concentric LVH, LVEF 65-70%, mild left atrial enlargement, PASP 30-35 mmHg Electrolyte abnormalities Previous h/o paroxysmal atrial tach and palpitations Chronic migraine headaches. Chronic body pains and fibromyalgia. H/o labile hypertension and postural hypotension History of perioperative bradycardia (asystole) and tachycardia (ventricular fibrillation). 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 MPI of Nov 2017 showed no evidence of significant myocardial ischemia or infarction. LVEF 78% Chronic pain syndrome. Obesity with a body mass index of approximately 36 The patient has been intolerant to statin therapy on account of chronic pain syndrome. DM II, insulin requiring, managed by [facility] electrophysiologist Cough of undetermined etiology. Dr Saleem following and has diagnosed restrictive lung disease Suspected LION - awaiting sleep studies at [facility] Bilateral intermittent leg swelling, chornic. Venous insuff study of 02/15/16 did not show DVT or reflux in the deep venous system or valvular insuff of greater or small saphenous system or AASV Less than 40% DANIELLE stenosis, 40-59% LICA stenosis on carotid u/s of 02/03/16 Plan: Continue current medication regimen Monitor lab closely Replace Mag and potassium Telemetry Physician Assessment Physician Assessment No cp or palp or syncope or shortness of breath at rest. Notes gen malaise Lungs: fair to good bilat air entry Cor: reg Ext: no c/c/e A&R * As documented in our note above that I updated (italics) and as noted below * Continue current regimen * Monitor labs YASMANI HAMILTON LABOR ECONOMICS PROFESSOR Apr 29, 2018 08:54 ULI YOO MD [facility] CCDS Apr 29, 2018 11:24
[2018-04-29] MEDS ORDERED: KCL 20 MEQ TAB (K-DUR) PO ONE (09:00)
[2018-04-29] MEDS ORDERED: MAGNESIUM 1 GM/100 ML IVPB 100 ML IV SCH (09:00)
--- NOTE | 2018-04-29 09:53 | Physical Therapy Daily Note ---
PT Daily Note-Current Subjective Patient reports she is feeling better today and hopes to go to [facility] for therapies. Pain Numeric Pain Scale: 0-No Pain Location: No Pain Reported Mental Status Patient Orientation: Normal For Age Attachments: Oxygen, IV Transfers Therapy Code Descriptions/Definitions Functional [place] Measure: 0=Not Assessed/NA 4=Minimal Assistance 1=Total Assistance 5=Supervision or Setup 2=Maximal Assistance 6=Modified [place] 3=Moderate Assistance 7=Complete [place] Therapy Quality Codes: 6 Independent with activity with or without an assistive device 5 Patient requires set up or clean up by helper. Patient completes activity by themselves 4 Supervision or touching assist (CGA). [place] provide cues , steadying assist 3 The helper provides less than half the effort to complete the activity 2 The helper provides more than half the effort to complete the activity 1 Dependent. The helper does all the effort to complete an activity 7 Patient refused to complete or attempt activity 9 The patient did not perform the activity before the current illness or injury 88 Not attempted due to Medical conditions or safety concerns Transfers (B, C, W/C) (FIM): 5 Scootin Supine to/from Sit: 5 Sit to/from Stand: 5 Bed to/from Chair: 5 Weight Bearing Right Lower Extremity: Right Full Weight Bearing Left Lower Extremity: Left Full Weight Bearing Gait Training Gait (FIM): 5 Distance (FIM): 3=150 ft Distance: 150' Gait Level of Assist: 5 Gait Persons Needed: 1 Gait Assistive Device: FWW slow,steady gait sequence Exercises Seated Therapy Exercises: Ankle pumps, Long arc quads Seated Reps: 20 (instruction to perform PRN independently) Assessment Patient progressing with treatment plan and, per patient report, will dismiss this week to [place] for therapies. PT Short Term Goals Short Term Goals Time Frame: May 02, 2018 Transfers (B,C,W/C) (FIM): 4 Gait (FIM): 1 Distance (FIM): 1=up to 49 ft Gait Distance Comment: 25' Gait Level of Assist: 4 Gait Assistive Device: FWW PT Plan Treatment/Plan Treatment Plan: Continue Plan of Care Treatment Plan: Bed Mobility, Education, Functional Activity Eileen, Functional Strength, Gait, Safety, Therapeutic Exercise, Transfers Treatment Duration: May 02, 2018 Frequency: 6 times per week Estimated Hrs Per Day: .25 hour per day Patient and/or Family Agrees t: Yes Time/GCodes Time In: 900 Time Out: 916 Total Billed Treatment Time: 16 Total Billed Treatment 1 visit FA 16 min IRENE NEGRO PT Apr 29, 2018 09:53
--- NOTE | 2018-04-29 11:39 | NUR ---
CM/SS spoke with patient regarding discharge planning. Patient stated that she would have a preference for [facility] if needs a SNF to rehab to home. Referral packet sent to [facility] for them to start working with insurance. Will continue to follow.
[2018-04-29 11:42] VITALS: BP 117/55
[2018-04-29 15:38] VITALS: BP 128/68
[2018-04-29] MEDS: PRAMIPEXOLE 0.5 MG TAB (MIRAPEX) PO SCH (16:53)
[2018-04-29] MEDS: oxyCODONE/APAP 5/325MG (PERCOCET 5) TABLET PO PRN (16:55)
--- NOTE | 2018-04-29 18:55 | Progress Note (SOAP) ---
Subjective Date Seen by a Provider: Apr 29, 2018 Time Seen by a Provider: 12:30 Subjective/Events-last exam Fwup Acute Post-Op Respiratory Failure, Stridor/Laryngospasm, COPD, Post-op SVT /V Tach, Diabetes mellitus--insulin requiring, insomnia, weakness/fatigue. Doxepin helped her sleep better. Does not qualify for SWING bed or inpatient rehab so is agreeable to SNF. Objective Exam Vital Signs Date Time Temp Pulse Resp B/P (MAP) Pulse Ox O2 Delivery O2 Flow Rate FiO2 04/29/18 15:38 99.0 70 20 128/68 (88) 93 High Flow N/C 3.00 04/29/18 14:33 93 Nasal Cannula 3.00 04/29/18 12:56 69 04/29/18 11:42 98.7 71 22 117/55 (75) 97 High Flow N/C 3.00 04/29/18 11:25 97 Nasal Cannula 3.00 04/29/18 08:45 97.3 60 22 119/57 (77) 97 High Flow N/C 3.00 04/29/18 08:00 High Flow N/C 4.00 04/29/18 07:16 82 Room Air 04/29/18 07:01 62 04/29/18 03:48 96.8 67 20 110/59 (76) 95 High Flow N/C 4.00 04/29/18 03:05 95 High Flow N/C 4.00 04/29/18 01:00 60 04/28/18 23:25 98.0 60 20 109/57 (74) 95 High Flow N/C 4.00 04/28/18 22:38 95 High Flow N/C 4.00 04/28/18 20:25 95 High Flow N/C 4.00 04/28/18 19:54 98.6 62 22 138/75 (96) 91 High Flow N/C 6.00 04/28/18 19:00 64 I & O 04/29/18 07:00 Intake Total 1570 ml Output Total 4050 ml Balance -2480 ml Capillary Refill : Less Than 3 SecondsLess Than 3 Seconds General Appearance: No Apparent Distress Neck: Supple Respiratory: Lungs Clear Cardiovascular: Regular Rate, Rhythm Gastrointestinal: normal bowel sounds, non tender, soft Extremity: Non Tender, No Calf Tenderness Neurologic/Psychiatric: Alert, Oriented x3 Skin: Warm/Dry Results Lab Laboratory Tests 04/28/18 19:58: Glucometer 161H 04/29/18 05:25: White Blood Count 13.9H, Red Blood Count 4.00L, Hemoglobin 12.0, Hematocrit 37, Mean Corpuscular Volume 93, Mean Corpuscular Hemoglobin 30, Mean Corpuscular Hemoglobin Concent 32, Red Cell Distribution Width 13.5, Platelet Count 260, Mean Platelet Volume 9.0, Neutrophils (%) (Auto) 71, Lymphocytes (%) (Auto) 20, Monocytes (%) (Auto) 7, Eosinophils (%) (Auto) 2, Basophils (%) (Auto) 0, Neutrophils # (Auto) 9.9H, Lymphocytes # (Auto) 2.8, Monocytes # (Auto) 0.9, Eosinophils # (Auto) 0.3, Basophils # (Auto) 0.0, Sodium Level 138, Potassium Level 3.4L, Chloride Level 97L, Carbon Dioxide Level 31, Anion Gap 10, Blood Urea Nitrogen 15, Creatinine 0.66, Estimat Glomerular Filtration Rate > 60, BUN/ Creatinine Ratio 23, Glucose Level 79, Calcium Level 8.6, Phosphorus Level 5.2H , Magnesium Level 1.6L 04/29/18 11:44: Glucometer 247H 04/29/18 15:37: Glucometer 226H Microbiology 04/24/18 Blood Culture - Final, Complete No growth 04/24/18 Gram Stain - Final, Complete 04/24/18 Sputum Culture - Final, Complete Usual upper respiratory gil Assessment/Plan Assessment/Plan Assess & Plan/Chief Complaint 1. Acute Respiratory Failure--on NC 2. Postop Stridor--currently resolved 3. Diabetes mellitus--continue current levemir dose and continue SSI 4. COPD--stable 5. SVT/V Tach--resolved/stable 6. Hypotension/Hypothermia--resolved 7. Insomnia--increase doxepin dose 8. Weakness--continue PT/OT and DC plans for SNF--patient request Via [facility] Quality Measures Admission Status Admission Dx 1. Post-op stridor with unstable airway--sedated and intubated on ventilator 2. 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 Hypertensive Urgency with SVT--responded to IV cardizem, likely in response to racemic epi 4. Cervical Spinal Stenosis with Anterior C5-C6 fusion--check stat CT of soft tissues to rule out hematoma DVT/VTE Risk/Contraindication: Risk Factor Score Per Nursin RFS Level Per Nursing on Admit: 4+=Very High NANNETTE REVELES DO Apr 29, 2018 18:55
[2018-04-29 20:05] VITALS: BP 102/56
[2018-04-29] MEDS: CATHETER FLUSH 10 ML SYR IV PRN (20:19)
[2018-04-29] MEDS: GABAPENTIN 100 MG (NEURONTIN) CAP PO SCH (20:22)
--- NOTE | 2018-04-29 20:25 | NUR ---
pt's bp 102/56, pt refuses lopressor at this time
[2018-04-29] MEDS: DOXEPIN 10 MG (SINEquan) CAP PO SCH (22:16)
[2018-04-29] MEDS: MELATONIN 3 MG TABLET PO SCH (22:17)
[2018-04-29 23:48] VITALS: BP 119/66
[2018-04-30] MEDS: RT-ALBUTEROL/IPRATROPIUM 3 ML (DUONEB) VIAL INH SCH ×6 (02:08→22:17)
[2018-04-30 04:00] VITALS: BP 118/67
[2018-04-30 05:27] LABS: BASOPHILS % (AUTO) 0 % (0-10); EOSINOPHILS # (AUTO) 0.2 10^3/uL (0.0-0.3); EOSINOPHILS % (AUTO) 2 % (0-10); HEMATOCRIT 37 % (35-52); HEMOGLOBIN 11.5 G/DL (11.5-16.0); LYMPHOCYTES # (AUTO) 2.5 X 10^3 (1.0-4.0); LYMPHOCYTES % (AUTO) 21 % (12-44); MEAN CORPUSCULAR HEMOGLOBIN 30 PG (25-34); MEAN CORPUSCULAR HGB CONC 32 G/DL (32-36); MEAN CORPUSCULAR VOLUME 94 FL (80-99); MEAN PLATELET VOLUME 9.3 FL (7.4-10.4); MONOCYTES # (AUTO) 0.9 X 10^3 (0.0-1.0); MONOCYTES % (AUTO) 8 % (0-12); NEUTROPHILS # (AUTO) 8.3 X 10^3 (1.8-7.8); NEUTROPHILS % (AUTO) 69 % (42-75); PLATELET COUNT 189 10^3/uL (130-400); RED CELL DISTRIBUTION WIDTH 13.5 % (10.0-14.5)
[2018-04-30 06:03] LABS: BUN/CREATININE RATIO 18; CALCIUM 8.7 MG/DL (8.5-10.1); CARBON DIOXIDE 28 MMOL/L (21-32); CHLORIDE 97 MMOL/L (98-107); CREATININE SERUM 0.72 MG/DL (0.60-1.30); GFR ESTIMATED > 60; GLUCOSE 231 MG/DL (70-105); MAGNESIUM 1.7 MG/DL (1.8-2.4); PHOSPHORUS 3.4 MG/DL (2.3-4.7); POTASSIUM 4.1 MMOL/L (3.6-5.0); SODIUM 135 MMOL/L (135-145)
[2018-04-30] MEDS: inSUlin ASPART (NovoLOG) 1 UNIT/0.01 ML (CHARGE PER UNIT) SQ SCH ×4 (06:06→20:45)
[2018-04-30] MEDS: MULTIVIT W/MINERALS TAB (THERAGRAN M) PO SCH (06:06)
--- NOTE | 2018-04-30 06:51 | Pulmonary Progress Note ---
Subjective Time Seen by a Provider: 06:51 Subjective/Events-last exam pt is doing better. Sepsis Event Evaluation Height, Weight, BMI Height: 5'5.00" Weight: 220lbs. 0.0oz. 99.143967wn; 36.6 BMI Method:Estimated Exam Exam Vital Signs Date Time Temp Pulse Resp B/P (MAP) Pulse Ox O2 Delivery O2 Flow Rate FiO2 04/30/18 04:00 98.4 63 16 118/67 (84) 92 High Flow N/C 2.00 04/30/18 02:08 92 Nasal Cannula 2.00 04/30/18 01:00 61 04/29/18 23:48 97.4 64 18 119/66 (83) 93 High Flow N/C 2.00 04/29/18 23:25 94 Nasal Cannula 3.00 04/29/18 20:05 97.0 62 22 102/56 (71) 91 High Flow N/C 6.00 04/29/18 20:00 High Flow N/C 4.00 04/29/18 19:29 92 Nasal Cannula 3.00 04/29/18 19:00 74 04/29/18 15:38 99.0 70 20 128/68 (88) 93 High Flow N/C 3.00 04/29/18 14:33 93 Nasal Cannula 3.00 04/29/18 12:56 69 04/29/18 11:42 98.7 71 22 117/55 (75) 97 High Flow N/C 3.00 04/29/18 11:25 97 Nasal Cannula 3.00 04/29/18 08:45 97.3 60 22 119/57 (77) 97 High Flow N/C 3.00 04/29/18 08:00 High Flow N/C 4.00 04/29/18 07:16 82 Room Air 04/29/18 07:01 62 I & O 04/30/18 07:00 Intake Total 2400 ml Output Total 1679 ml Balance 721 ml Height & Weight Height: 5'5.00" Weight: 220lbs. 0.0oz. 99.396280lm; 36.6 BMI Method:Estimated General Appearance: No Apparent Distress Neck: Supple Respiratory: Lungs Clear Cardiovascular: Regular Rate, Rhythm Capillary Refill: Less Than 3 Seconds Gastrointestinal: normal bowel sounds, non tender, soft Extremity: Non Tender, No Calf Tenderness Neurologic/Psychiatric: Alert, Oriented x3 Skin: Warm/Dry Lymphatic: No Adenopathy Results Lab Laboratory Tests 04/29/18 05:25 04/30/18 05:17 Assessment/Plan Assessment/Plan S/P Acute respiratory failure secondary to probable vocal cord spasms - PT is doing well off vent RLL infiltrate/worsening CXR - WBC is improving, no fevers -IVF are hep locked -Pt has nonproductive cough. -Cultures and MRSA swab are negative Hypokalemia, hypomag -replace S/p C5-C6 fusion 04/22 Afib - -Amio, digoxin, cardizem -Cardiology following Hx of laryngal spasms -Ativan PRN HX of cardiac arrest 2010 Last EF 50-55% CAD Obesity THERESA COOK DO Apr 30, 2018 06:51
--- NOTE | 2018-04-30 07:57 | Diagnostic Imaging Report ---
INDICATION: Dyspnea. COMPARISON: 04/29/2018. FINDINGS: Unchanged cardiomegaly with left pectoral transvenous dual-chamber pacemaker/ICD. Stable right IJ central venous catheter. Small left pleural effusion with patchy left basilar pulmonary opacities are similar. No pneumothorax. Right lung remains clear. IMPRESSION: 1. No adverse development. 2. Stable support devices. Dictated by: Dictated on workstation # [id number]
[2018-04-30 07:58] VITALS: BP 128/53
--- NOTE | 2018-04-30 08:48 | Progress Note-Cardiology ---
Cardiology SOAP Progress Note Subjective: Sitting up in bed. States she continues to feel weak, but is getting better. No c/o CP, palpitations or syncope. Chronic mild to mod dyspnea which is unchanged. Occ lose cough. Objective: I&O/Vital Signs 04/29/18 04/29/18 04/30/18 04/30/18 23:25 23:48 01:00 02:08 Temp 97.4 Pulse 64 61 Resp 18 B/P (MAP) 119/66 (83) Pulse Ox 94 93 92 O2 Delivery Nasal Cannula High Flow N/C Nasal Cannula O2 Flow Rate 3.00 2.00 2.00 04/30/18 04/30/18 04/30/18 04:00 07:48 07:58 Temp 98.4 98.9 Pulse 63 85 Resp 16 22 B/P (MAP) 118/67 (84) 128/53 (78) Pulse Ox 92 93 94 O2 Delivery High Flow N/C Nasal Cannula High Flow N/C O2 Flow Rate 2.00 2.00 2.00 04/30/18 00:00 Intake Total 2000 ml Output Total 977 ml Balance 1023 ml Weight (Pounds): 220 Weight (Ounces): 0.0 Weight (Calculated Kilograms): 99.976008 Constitutional: AAO x 3 Respiratory: chest is bilaterally symmetric, rhonchi (scattered), other Cardiovascular: regular rate-rhythm, S1 and S2, systolic murmur (soft WOLF at card base) Gastrointestional: soft, audible bowel sounds Extremities: No significant edema Neurologic/Psychiatric: grossly intact Skin: No rash, No ulcerations Results/Procedures: Labs Laboratory Tests 04/29/18 11:44: Glucometer 247H 04/29/18 15:37: Glucometer 226H 04/29/18 20:10: Glucometer 163H 04/30/18 05:14: Glucometer 220H 04/30/18 05:17: White Blood Count 12.0H, Red Blood Count 3.90L, Hemoglobin 11.5, Hematocrit 37, Mean Corpuscular Volume 94, Mean Corpuscular Hemoglobin 30, Mean Corpuscular Hemoglobin Concent 32, Red Cell Distribution Width 13.5, Platelet Count 189, Mean Platelet Volume 9.3, Neutrophils (%) (Auto) 69, Lymphocytes (%) (Auto) 21, Monocytes (%) (Auto) 8, Eosinophils (%) (Auto) 2, Basophils (%) (Auto) 0, Neutrophils # (Auto) 8.3H, Lymphocytes # (Auto) 2.5, Monocytes # (Auto) 0.9, Eosinophils # (Auto) 0.2, Basophils # (Auto) 0.0, Sodium Level 135, Potassium Level 4.1, Chloride Level 97L, Carbon Dioxide Level 28, Anion Gap 10, Blood Urea Nitrogen 13, Creatinine 0.72, Estimat Glomerular Filtration Rate > 60, BUN/ Creatinine Ratio 18, Glucose Level 231H, Calcium Level 8.7, Phosphorus Level 3.4 , Magnesium Level 1.7L Microbiology 04/24/18 Blood Culture - Final, Complete No growth 04/24/18 Gram Stain - Final, Complete 04/24/18 Sputum Culture - Final, Complete Usual upper respiratory gil Procedures NAME: BRAYDON ARBOLEDA MED REC#: [id number] PT STATUS: ADM IN : 1945 PHYSICIAN: THERESA SALEEM DO ADMIT DATE: 04/21/18 Draft Date of Exam:04/30/18 CHEST 1 VIEW, AP/PA ONLY INDICATION: Dyspnea. COMPARISON: 04/29/2018. FINDINGS: Unchanged cardiomegaly with left pectoral transvenous dual-chamber pacemaker/ICD. Stable right IJ central venous catheter. Small left pleural effusion with patchy left basilar pulmonary opacities are similar. No pneumothorax. Right lung remains clear. IMPRESSION: 1. No adverse development. 2. Stable support devices. Dictated on workstation # [id number] Dict: 04/30/18 0739 Trans: 04/30/18 0756 [id number] Interpreted by: ALVA HOWARD MD Electronically signed by: A/P: Assessment: PAF with RVR associated with hypotension - converted to NSR on 04-24-18 Eliquis for stroke prophylaxis S/p spinal fusion surgery and post-op resp failure [facility] Echo of 04/23/18: mod concentric LVH, LVEF 65-70%, mild left atrial enlargement, PASP 30-35 mmHg Electrolyte abnormalities Previous h/o paroxysmal atrial tach and palpitations Chronic migraine headaches. Chronic body pains and fibromyalgia. H/o labile hypertension and postural hypotension History of perioperative bradycardia (asystole) and tachycardia (ventricular fibrillation). 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 MPI of Nov 2017 showed no evidence of significant myocardial ischemia or infarction. LVEF 78% Chronic pain syndrome. Obesity with a body mass index of approximately 36 The patient has been intolerant to statin therapy on account of chronic pain syndrome. 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 Dr Saleem following and has diagnosed restrictive lung disease Suspected LION - awaiting sleep studies at [facility] Bilateral intermittent leg swelling, chornic. Venous insuff study of 02/15/16 did not show DVT or reflux in the deep venous system or valvular insuff of greater or small saphenous system or AASV Less than 40% DANIELLE stenosis, 40-59% LICA stenosis on carotid u/s of 02/03/16 Plan: Continue current medication regimen Cardiac status clinically stable Start oral Mag Monitor lab Physician Assessment Physician Assessment No cp or palp or syncope. Shortness of breath improving Gen malaise and weakness Lungs: good air entry bilat, diminished at the bases Cor: reg Ext: no c/c/e A&R * As documented in our note above that I updated (italics) and as noted below * Replenish Mg * Monitor labs * Continue current regimen YASMANI HAMILTON Apr 30, 2018 08:48 ULI YOO MD [facility] CCDS Apr 30, 2018 08:49
[2018-04-30] MEDS: FAMOTIDINE 20MG/2ML IV (PEPCID) IVP SCH ×2 (08:49→20:44)
[2018-04-30] MEDS: APIXABAN 5 MG (ELIQUIS) TABLET PO SCH ×2 (08:50→20:44)
[2018-04-30] MEDS: DILTIAZEM 240 MG (CARDIZEM CD) CAP PO SCH (08:51)
[2018-04-30] MEDS: SENNOSIDES 8.6 MG (SENOKOT) TAB PO SCH ×2 (08:51→20:44)
[2018-04-30] MEDS: meTOprolol TARTRATE 50 MG (LOPRESSOR) TAB PO SCH ×2 (08:51→20:48)
[2018-04-30] MEDS: busPIRone 5 MG (BUSPAR) TAB PO SCH ×3 (08:51→20:44)
[2018-04-30] MEDS: GABAPENTIN 300 MG (NEURONTIN) CAP PO SCH ×2 (08:51→20:44)
[2018-04-30] MEDS: inSUlin DETERMIR 1 UNIT/0.01 ML (LEVEMIR) CHARGE PER UNIT SQ SCH (08:51)
--- NOTE | 2018-04-30 09:01 | NUR ---
Left message on Dr Reid's phone. The patient forgot to mention her sore mouth to her.
--- NOTE | 2018-04-30 11:16 | NUR ---
CM/SS called [facility] and left message for Tianna, attempting to follow up on referral sent. Left call back information for her.
--- NOTE | 2018-04-30 11:21 | Physical Therapy Daily Note ---
PT Daily Note-Current Subjective Pt in bed and agrees to PT. Reports that she does not feel so great today. Pain Numeric Pain Scale: 0-No Pain Location: No Pain Reported Mental Status Patient Orientation: Person, Place, Situation, Normal For Age Attachments: Oxygen (2L) Transfers Therapy Code Descriptions/Definitions Functional [place] Measure: 0=Not Assessed/NA 4=Minimal Assistance 1=Total Assistance 5=Supervision or Setup 2=Maximal Assistance 6=Modified [place] 3=Moderate Assistance 7=Complete [place] Therapy Quality Codes: 6 Independent with activity with or without an assistive device 5 Patient requires set up or clean up by helper. Patient completes activity by themselves 4 Supervision or touching assist (CGA). [place] provide cues , steadying assist 3 The helper provides less than half the effort to complete the activity 2 The helper provides more than half the effort to complete the activity 1 Dependent. The helper does all the effort to complete an activity 7 Patient refused to complete or attempt activity 9 The patient did not perform the activity before the current illness or injury 88 Not attempted due to Medical conditions or safety concerns Transfers (B, C, W/C) (FIM): 5 Scootin Supine to/from Sit: 5 Sit to/from Stand: 5 Weight Bearing Right Lower Extremity: Right Full Weight Bearing Left Lower Extremity: Left Full Weight Bearing Gait Training Gait (FIM): 2 Distance (FIM): 1=377-70 ft Distance: 125' Gait Level of Assist: 5 Gait Persons Needed: 1 Gait Assistive Device: FWW Assessment Current Status: Fair Progress Pt was able to perform all bed mobility and transfers SBA. Pt was SBA with bedside commode transfer using FWW. Pt SBA with bathroom skills. Pt was able to amb 125' with FWW and SBA with O2 3L. Pt was audibly wheezing and SOA. Pt is in recliner and was able to recover with rest. Pt has all needs met in recliner. Pt reports she has been doing her LE ex while seated and in bed and reports she will continue doing them. Pt reports she will be transferring to [facility] tomorrow. PT Short Term Goals Short Term Goals Time Frame: May 02, 2018 Transfers (B,C,W/C) (FIM): 4 Gait (FIM): 1 Distance (FIM): 1=up to 49 ft Gait Distance Comment: 25' Gait Level of Assist: 4 Gait Assistive Device: FWW PT Plan Problem List Problem List: Activity Tolerance, Functional Strength, Safety, Balance, Gait, Transfer, Bed Mobility, ROM Treatment/Plan Treatment Plan: Continue Plan of Care Treatment Plan: Bed Mobility, Education, Functional Activity Eileen, Functional Strength, Gait, Safety, Therapeutic Exercise, Transfers Treatment Duration: May 02, 2018 Frequency: 6 times per week Estimated Hrs Per Day: .25 hour per day Patient and/or Family Agrees t: Yes Safety Risks/Education Patient Education: Gait Training, Transfer Techniques, Correct Positioning, Safety Issues Teaching Recipient: Patient Teaching Methods: Demonstration, Discussion Response to Teaching: Reinforcement Needed Time/GCodes Time In: 1026 Time Out: 1039 Total Billed Treatment Time: 13 Total Billed Treatment 1 visit FA 13 min AP ALVARADO PT Apr 30, 2018 11:21
[2018-04-30 11:27] VITALS: BP 118/76
[2018-04-30] MEDS: oxyCODONE/APAP 5/325MG (PERCOCET 5) TABLET PO PRN (13:17)
--- NOTE | 2018-04-30 15:04 | NUR ---
CARLITA/CHAVEZ Wynn with [facility] called and they can accept the patient on 05/01. They would plan to transport on 05/01/18 at 1300. Patient and RNing updated.
[2018-04-30 16:01] VITALS: BP 111/56
[2018-04-30] MEDS: MAGNESIUM OXIDE (MAG-OX)400 MG TAB PO SCH (17:11)
[2018-04-30] MEDS: PRAMIPEXOLE 0.5 MG TAB (MIRAPEX) PO SCH (17:11)
--- NOTE | 2018-04-30 17:44 | Progress Note (SOAP) ---
Subjective Date Seen by a Provider: Apr 30, 2018 Time Seen by a Provider: 08:35 Subjective/Events-last exam Fwup Acute Post-Op Respiratory Failure, Stridor/Laryngospasm, COPD, Post-op SVT /V Tach, Diabetes mellitus--insulin requiring, insomnia, weakness/fatigue. Higher dose of Doxepin helped her sleep Objective Exam Vital Signs Date Time Temp Pulse Resp B/P (MAP) Pulse Ox O2 Delivery O2 Flow Rate FiO2 04/30/18 16:06 91 Nasal Cannula 2.00 04/30/18 16:01 99.4 71 20 111/56 (74) 95 High Flow N/C 2.00 04/30/18 13:20 72 04/30/18 11:27 99.0 69 20 118/76 (90) 96 High Flow N/C 2.00 04/30/18 10:58 96 Nasal Cannula 2.00 04/30/18 08:00 High Flow N/C 4.00 04/30/18 07:58 98.9 85 22 128/53 (78) 94 High Flow N/C 2.00 04/30/18 07:48 93 Nasal Cannula 2.00 04/30/18 07:13 80 04/30/18 04:00 98.4 63 16 118/67 (84) 92 High Flow N/C 2.00 04/30/18 02:08 92 Nasal Cannula 2.00 04/30/18 01:00 61 04/29/18 23:48 97.4 64 18 119/66 (83) 93 High Flow N/C 2.00 04/29/18 23:25 94 Nasal Cannula 3.00 04/29/18 20:05 97.0 62 22 102/56 (71) 91 High Flow N/C 6.00 04/29/18 20:00 High Flow N/C 4.00 04/29/18 19:29 92 Nasal Cannula 3.00 04/29/18 19:00 74 I & O 04/30/18 07:00 Intake Total 2400 ml Output Total 1679 ml Balance 721 ml Capillary Refill : Less Than 3 SecondsLess Than 3 Seconds General Appearance: No Apparent Distress Neck: Supple Respiratory: Lungs Clear, Decreased Breath Sounds Cardiovascular: Regular Rate, Rhythm Gastrointestinal: normal bowel sounds, non tender, soft Extremity: Non Tender, No Calf Tenderness, No Pedal Edema Neurologic/Psychiatric: Alert, Oriented x3 Skin: Warm/Dry Results Lab Laboratory Tests 04/29/18 20:10: Glucometer 163H 04/30/18 05:14: Glucometer 220H 04/30/18 05:17: White Blood Count 12.0H, Red Blood Count 3.90L, Hemoglobin 11.5, Hematocrit 37, Mean Corpuscular Volume 94, Mean Corpuscular Hemoglobin 30, Mean Corpuscular Hemoglobin Concent 32, Red Cell Distribution Width 13.5, Platelet Count 189, Mean Platelet Volume 9.3, Neutrophils (%) (Auto) 69, Lymphocytes (%) (Auto) 21, Monocytes (%) (Auto) 8, Eosinophils (%) (Auto) 2, Basophils (%) (Auto) 0, Neutrophils # (Auto) 8.3H, Lymphocytes # (Auto) 2.5, Monocytes # (Auto) 0.9, Eosinophils # (Auto) 0.2, Basophils # (Auto) 0.0, Sodium Level 135, Potassium Level 4.1, Chloride Level 97L, Carbon Dioxide Level 28, Anion Gap 10, Blood Urea Nitrogen 13, Creatinine 0.72, Estimat Glomerular Filtration Rate > 60, BUN/ Creatinine Ratio 18, Glucose Level 231H, Calcium Level 8.7, Phosphorus Level 3.4 , Magnesium Level 1.7L 04/30/18 11:30: Glucometer 249H 04/30/18 16:00: Glucometer 179H Microbiology 04/24/18 Blood Culture - Final, Complete No growth 04/24/18 Gram Stain - Final, Complete 04/24/18 Sputum Culture - Final, Complete Usual upper respiratory gil Assessment/Plan Assessment/Plan Assess & Plan/Chief Complaint 1. Acute Respiratory Failure--on NC 2. Postop Stridor--currently resolved 3. Diabetes mellitus--continue current levemir dose and continue SSI 4. COPD--stable 5. SVT/V Tach--resolved/stable 6. Hypotension/Hypothermia--resolved 7. Insomnia--continue doxepin 8. Weakness--continue PT/OT and DC plans for SNF--patient request Via [facility] Quality Measures Admission Status Admission Dx 1. Post-op stridor with unstable airway--sedated and intubated on ventilator 2. 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 Hypertensive Urgency with SVT--responded to IV cardizem, likely in response to racemic epi 4. Cervical Spinal Stenosis with Anterior C5-C6 fusion--check stat CT of soft tissues to rule out hematoma DVT/VTE Risk/Contraindication: Risk Factor Score Per Nursin RFS Level Per Nursing on Admit: 4+=Very High NANNETTE REVELES DO Apr 30, 2018 17:44
[2018-04-30 19:29] VITALS: BP 107/60
[2018-04-30] MEDS: DOXEPIN 10 MG (SINEquan) CAP PO SCH (20:44)
[2018-04-30] MEDS: GABAPENTIN 100 MG (NEURONTIN) CAP PO SCH (20:44)
[2018-04-30] MEDS: MELATONIN 3 MG TABLET PO SCH (20:44)
[2018-04-30 23:31] VITALS: BP 115/56
[2018-05-01] MEDS: RT-ALBUTEROL/IPRATROPIUM 3 ML (DUONEB) VIAL INH SCH ×6 (02:41→21:39)
[2018-05-01 03:53] VITALS: BP 109/55
[2018-05-01 04:45] LABS: BASOPHILS % (AUTO) 0 % (0-10); EOSINOPHILS # (AUTO) 0.1 10^3/uL (0.0-0.3); EOSINOPHILS % (AUTO) 1 % (0-10); HEMATOCRIT 34 % (35-52); HEMOGLOBIN 10.9 G/DL (11.5-16.0); LYMPHOCYTES # (AUTO) 1.9 X 10^3 (1.0-4.0); LYMPHOCYTES % (AUTO) 14 % (12-44); MEAN CORPUSCULAR HEMOGLOBIN 30 PG (25-34); MEAN CORPUSCULAR HGB CONC 32 G/DL (32-36); MEAN CORPUSCULAR VOLUME 94 FL (80-99); MEAN PLATELET VOLUME 9.3 FL (7.4-10.4); MONOCYTES # (AUTO) 1.3 X 10^3 (0.0-1.0); MONOCYTES % (AUTO) 9 % (0-12); NEUTROPHILS # (AUTO) 10.6 X 10^3 (1.8-7.8); NEUTROPHILS % (AUTO) 76 % (42-75); PLATELET COUNT 198 10^3/uL (130-400); RED CELL DISTRIBUTION WIDTH 13.7 % (10.0-14.5)
[2018-05-01 05:00] LABS: ANISOCYTOSIS SLIGHT; BAND NEUTROPHILS 0 %; BASOPHILS % (MANUAL) 0 %; ELLIPT/OVALOCYTES SLIGHT; EOSINOPHILS % (MANUAL) 0 %; LYMPHOCYTES % (MANUAL) 13 %; MONOCYTES % (MANUAL) 4 %; NEUTROPHILS % (MANUAL) 83 %; POLYCHROMASIA SLIGHT
[2018-05-01 05:03] LABS: BUN/CREATININE RATIO 18; CALCIUM 9.2 MG/DL (8.5-10.1); CARBON DIOXIDE 26 MMOL/L (21-32); CHLORIDE 98 MMOL/L (98-107); GFR ESTIMATED > 60; GLUCOSE 244 MG/DL (70-105); MAGNESIUM 1.6 MG/DL (1.8-2.4); PHOSPHORUS 3.6 MG/DL (2.3-4.7); POTASSIUM 3.9 MMOL/L (3.6-5.0); SODIUM 132 MMOL/L (135-145)
[2018-05-01] MEDS: inSUlin ASPART (NovoLOG) 1 UNIT/0.01 ML (CHARGE PER UNIT) SQ SCH ×4 (06:10→20:57)
[2018-05-01] MEDS: MULTIVIT W/MINERALS TAB (THERAGRAN M) PO SCH (06:10)
[2018-05-01 07:52] VITALS: BP 113/53
--- NOTE | 2018-05-01 07:55 | Diagnostic Imaging Report ---
INDICATION: Shortness of breath. Comparison is made with prior examination from 04/30/2018. FINDINGS: There is cardiomegaly. There is left basilar infiltrate and left pleural effusion. There is no pneumothorax. The mediastinum is unremarkable. Pacemaker overlies the left hemithorax. IMPRESSION: Left basilar infiltrate and left pleural effusion. Dictated by: Dictated on workstation # [id number]
[2018-05-01] MEDS: MAGNESIUM OXIDE (MAG-OX)400 MG TAB PO SCH ×2 (07:57→18:03)
[2018-05-01] MEDS: APIXABAN 5 MG (ELIQUIS) TABLET PO SCH ×2 (07:57→20:57)
[2018-05-01] MEDS: FAMOTIDINE 20MG/2ML IV (PEPCID) IVP SCH ×2 (08:00→20:56)
[2018-05-01] MEDS: CATHETER FLUSH 10 ML SYR IV PRN (08:00)
[2018-05-01] MEDS: meTOprolol TARTRATE 50 MG (LOPRESSOR) TAB PO SCH ×2 (08:01→20:57)
[2018-05-01] MEDS: DILTIAZEM 240 MG (CARDIZEM CD) CAP PO SCH (08:01)
[2018-05-01] MEDS: GABAPENTIN 300 MG (NEURONTIN) CAP PO SCH ×2 (08:02→20:57)
[2018-05-01] MEDS: SENNOSIDES 8.6 MG (SENOKOT) TAB PO SCH ×2 (08:03→20:57)
[2018-05-01] MEDS: inSUlin DETERMIR 1 UNIT/0.01 ML (LEVEMIR) CHARGE PER UNIT SQ SCH (08:03)
[2018-05-01] MEDS: busPIRone 5 MG (BUSPAR) TAB PO SCH ×3 (08:03→20:57)
--- NOTE | 2018-05-01 08:53 | NUR ---
CM/SS completed the CARE assessment with the patient. copy sent to facility and [facility], copy also retained for the patient's chart.
--- NOTE | 2018-05-01 09:04 | Progress Note-Cardiology ---
Cardiology SOAP Progress Note Subjective: Sitting up in bed. States she continues to feel weak, but feels this is improving. C/O sore throat. No c/o CP, palpitations, dyspnea, syncope or near syncope. Objective: I&O/Vital Signs 05/01/18 05/01/18 05/01/18 05/01/18 07:00 07:05 07:52 08:00 Temp 99.3 Pulse 109 89 Resp 24 B/P (MAP) 113/53 (73) Pulse Ox 92 94 O2 Delivery Nasal Cannula Nasal Cannula High Flow N/C O2 Flow Rate 3.00 3.00 3.00 05/01/18 05/01/18 05/01/18 05/01/18 10:21 12:00 13:00 14:30 Temp 100.4 Pulse 78 74 Resp 22 B/P (MAP) 119/58 (78) Pulse Ox 93 93 94 O2 Delivery Nasal Cannula Nasal Cannula Nasal Cannula O2 Flow Rate 3.00 3.00 3.00 05/01/18 05/01/18 05/01/18 15:08 15:38 15:53 Temp 103.3 101.2 101.2 Pulse 82 Resp 20 B/P (MAP) 107/52 (70) Pulse Ox 94 O2 Delivery Nasal Cannula O2 Flow Rate 3.00 05/01/18 00:00 Intake Total 1370 ml Output Total 775 ml Balance 595 ml Weight (Pounds): 220 Weight (Ounces): 0.0 Weight (Calculated Kilograms): 99.293873 Constitutional: AAO x 3 Respiratory: chest is bilaterally symmetric, rhonchi (scattered), other Cardiovascular: regular rate-rhythm, S1 and S2, systolic murmur (soft WOLF at card base) Gastrointestional: soft, audible bowel sounds Extremities: No significant edema Neurologic/Psychiatric: grossly intact Skin: No rash, No ulcerations Results/Procedures: Labs Laboratory Tests 04/30/18 20:29: Glucometer 282H 05/01/18 04:35: White Blood Count 14.0H, Red Blood Count 3.65L, Hemoglobin 10.9L, Hematocrit 34L , Mean Corpuscular Volume 94, Mean Corpuscular Hemoglobin 30, Mean Corpuscular Hemoglobin Concent 32, Red Cell Distribution Width 13.7, Platelet Count 198, Mean Platelet Volume 9.3, Neutrophils (%) (Auto) 76H, Lymphocytes (%) (Auto) 14 , Monocytes (%) (Auto) 9, Eosinophils (%) (Auto) 1, Basophils (%) (Auto) 0, Neutrophils # (Auto) 10.6H, Lymphocytes # (Auto) 1.9, Monocytes # (Auto) 1.3H, Eosinophils # (Auto) 0.1, Basophils # (Auto) 0.0, Neutrophils % (Manual) 83, Lymphocytes % (Manual) 13, Monocytes % (Manual) 4, Eosinophils % (Manual) 0, Basophils % (Manual) 0, Band Neutrophils 0, Polychromasia SLIGHT, Anisocytosis SLIGHT, Elliptocytes SLIGHT, Sodium Level 132L, Potassium Level 3.9, Chloride Level 98, Carbon Dioxide Level 26, Anion Gap 8, Blood Urea Nitrogen 14, Creatinine 0.80, Estimat Glomerular Filtration Rate > 60, BUN/Creatinine Ratio 18, Glucose Level 244H, Calcium Level 9.2, Phosphorus Level 3.6, Magnesium Level 1.6L 05/01/18 05:43: Glucometer 216H 05/01/18 10:54: Glucometer 213H 05/01/18 14:10: Urine Color YELLOW, Urine Clarity CLEAR, Urine pH 8, Urine Specific [place] 1.010L, Urine Protein NEGATIVE, Urine Glucose (UA) NEGATIVE, Urine Ketones NEGATIVE, Urine Nitrite NEGATIVE, Urine Bilirubin NEGATIVE, Urine Urobilinogen NORMAL, Urine Leukocyte Esterase 2+H, Urine RBC (Auto) NEGATIVE, Urine RBC NONE , Urine WBC 10-25H, Urine Squamous Epithelial Cells 2-5, Urine Crystals NONE, Urine Bacteria TRACE, Urine Casts NONE, Urine Mucus NEGATIVE, Urine Culture Indicated YES Microbiology 04/24/18 Blood Culture - Final, Complete No growth 05/01/18 Influenza Types A,B Antigen (YOLIE) - Final, Complete Laboratory Tests 04/30/18 05:17 05/01/18 04:35 A/P: Assessment: PAF with RVR associated with hypotension - converted to NSR on 04-24-18 Eliquis for stroke prophylaxis S/p spinal fusion surgery and post-op resp failure [facility] Echo of 04/23/18: mod concentric LVH, LVEF 65-70%, mild left atrial enlargement, PASP 30-35 mmHg Electrolyte abnormalities Previous h/o paroxysmal atrial tach and palpitations Chronic migraine headaches. Chronic body pains and fibromyalgia. H/o labile hypertension and postural hypotension History of perioperative bradycardia (asystole) and tachycardia (ventricular fibrillation). 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 MPI of Nov 2017 showed no evidence of significant myocardial ischemia or infarction. LVEF 78% Chronic pain syndrome. Obesity with a body mass index of approximately 36 The patient has been intolerant to statin therapy on account of chronic pain syndrome. 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 Dr Saleem following and has diagnosed restrictive lung disease Suspected LION - awaiting sleep studies at [facility] Bilateral intermittent leg swelling, chornic. Venous insuff study of 02/15/16 did not show DVT or reflux in the deep venous system or valvular insuff of greater or small saphenous system or AASV Less than 40% DANIELLE stenosis, 40-59% LICA stenosis on carotid u/s of 02/03/16 Plan: Continue current medication regimen Cardiac status clinically stable Plan is to transfer to [facility] today Advise out pt f/u Physician Assessment Physician Assessment Gen malaise. Mod exertional shortness of breath. No cp or palp or syncope Lungs: fair to good air entry, diminished at the bases Cor: reg Ext: no c/c/e A&R * As documented in our note above that I updated (italics) and as noted below * Continue current regimen * Monitor labs YASMANI HAMILTON May 01, 2018 09:04 ULI YOO MD [facility] CCDS May 01, 2018 17:02
[2018-05-01] MEDS ORDERED: DILT240C97 PO (09:06)
[2018-05-01] MEDS ORDERED: APIX5TAB PO (09:06)
[2018-05-01] MEDS ORDERED: MAGN400T6 PO (09:06)
--- NOTE | 2018-05-01 09:50 | Physical Therapy Daily Note ---
PT Daily Note-Current Subjective Pt in bed and agrees to PT. Reports that today she should be dismissing to [facility]. Pt has the appearance of being very worn down and is not as "peppy" as she usually looks. Mental Status Patient Orientation: Person, Place, Situation, Normal For Age Attachments: Oxygen (3L) Transfers Therapy Code Descriptions/Definitions Functional [place] Measure: 0=Not Assessed/NA 4=Minimal Assistance 1=Total Assistance 5=Supervision or Setup 2=Maximal Assistance 6=Modified [place] 3=Moderate Assistance 7=Complete [place] Therapy Quality Codes: 6 Independent with activity with or without an assistive device 5 Patient requires set up or clean up by helper. Patient completes activity by themselves 4 Supervision or touching assist (CGA). [place] provide cues , steadying assist 3 The helper provides less than half the effort to complete the activity 2 The helper provides more than half the effort to complete the activity 1 Dependent. The helper does all the effort to complete an activity 7 Patient refused to complete or attempt activity 9 The patient did not perform the activity before the current illness or injury 88 Not attempted due to Medical conditions or safety concerns Transfers (B, C, W/C) (FIM): 5 Scootin Rollin Supine to/from Sit: 5 Sit to/from Stand: 5 Weight Bearing Right Lower Extremity: Right Full Weight Bearing Left Lower Extremity: Left Full Weight Bearing Gait Training Gait (FIM): 2 Distance (FIM): 2=534-52 ft Distance: 130' Gait Level of Assist: 4 Gait Persons Needed: 1 Gait Assistive Device: FWW Assessment Current Status: Poor Progress Pt was able to perform bed mobility with SBA. Pt transfers SBA to FWW. She was able to amb 130' with FWW and CGA for safety O2 3L. Pt became SOA during amb, has a hard time breathing through the N/C since she is a mouth breather. Pt returned to room and requested BSC. Pt indep with bathroom skills and transfers SBA. Pt returned to bed and has all needs met in bed. Pt reports she is very fatigued. PT Short Term Goals Short Term Goals Time Frame: May 02, 2018 Transfers (B,C,W/C) (FIM): 4 Gait (FIM): 1 Distance (FIM): 1=up to 49 ft Gait Distance Comment: 25' Gait Level of Assist: 4 Gait Assistive Device: FWW PT Plan Problem List Problem List: Activity Tolerance, Functional Strength, Safety, Balance, Gait, Transfer, Bed Mobility, ROM Treatment/Plan Treatment Plan: Continue Plan of Care Treatment Plan: Bed Mobility, Education, Functional Activity Eileen, Functional Strength, Gait, Safety, Therapeutic Exercise, Transfers Treatment Duration: May 02, 2018 Frequency: 6 times per week Estimated Hrs Per Day: .25 hour per day Patient and/or Family Agrees t: Yes Time/GCodes Time In: 903 Time Out: 918 Total Billed Treatment Time: 15 Total Billed Treatment 1 visit FA 15 min IRENE NEGRO PT May 01, 2018 09:50
--- NOTE | 2018-05-01 10:20 | NUR ---
CM/SS Tianna with [facility] called and stated that Ana is now needing a Peer to Peer with , they will not be able to take patient until after peer to peer. Information for the peer to peer [phone] Enrike William was given to Dr. Cooney's office. Patient and RNing were updated.
[2018-05-01] MEDS ORDERED: INSU100V5 SQ (10:41)
[2018-05-01] MEDS ORDERED: METF500T8 PO (10:41)
[2018-05-01] MEDS ORDERED: ACHD5005 PO (10:41)
[2018-05-01] MEDS ORDERED: DOXE10CA29 PO (10:41)
[2018-05-01] MEDS ORDERED: MELA3TAB PO (10:41)
[2018-05-01] MEDS ORDERED: SENN-141 PO (10:41)
[2018-05-01] MEDS ORDERED: LORA0.5T PO (10:41)
[2018-05-01] MEDS ORDERED: ACET-2650 PO (10:42)
--- NOTE | 2018-05-01 10:47 | Discharge Inst-Skilled Nursing ---
Discharge Inst-Skilled NF Patient Instructions Patient Problems: Cervical Spine Fusion Post-op Respiratory Failure Diabetes mellitus--insulin requiring Weakness COPD Consult/Follow Up/Orders Follow Up Appt.: Fwup with Dr Faulkner in 1 week then fwup up with me after Dr. Faulkner appointment Skilled NF Admit to: Via [facility] Certification (SNF) I certify that SNF services are required to be given on an inpatient basis because of the above named patient's need for senior living care on a continuing basis for the conditions(s) for which he/she was receiving inpatient hospital services prior to his/her transfer to the [facility]. [facility] Facility Order: Nursing Services, Grease Press Helper-Evaluate & Treat, Physical Therapy-Evaluate & Treat, Speech Language-Evaluate & Treat Oxygen Delivery Method: Nasal Cannula Oxygen Flow Rate L/min (Range): 2L NC Discharge Diet: ADA Diet, Cardiac Diet Daily Activity as Tolerated: Yes New & Resume Previous Orders Other Instructions Accuchecks BID CBC, CMP in 1 week Belia Reid May 01, 2018 10:44 BELIA REID DO May 01, 2018 10:47
[2018-05-01 12:00] VITALS: BP 119/58
--- NOTE | 2018-05-01 14:15 | Occ Therapy Progress Note ---
Therapy Progress Note 05/01/2018 : Diagnosis: S/P Cervical Spinal Stenosis with Anterior C5-C6 Fusion Treatment Diagnosis : Weakness PMHx : COPD, CAD, DM, [place], Neuropathy. Mrs Diana Gregory seen today in the afternoon for OT Reassessment . Subjective: Pt in bed , alert, oriented x 3 , cooperative . Pt agree for OT Reassessment. Pt states that, " I am doing good. I ordered food but I am not Hungry." Objective : ROM in BUE : WFL Pt c/o minimal pain in neck 3/10 on VAS. only on movement side to side. Sensation in Both UE : Intact. In Both feet : Impaired sensation. MS in BUE -4/5 grossly graded. Hand Airplane Pilot Helper : Fair. Pt O2 Dependent. 3 Liters on Continuous. Endurance -Fair. Fatigue soon. Needs frequent rest periods between each activity. \\ Balance : Unsteady standing balance with FWW due to weakness in BLE & Obesity . High risk of fall. Self Care Activities : Pt needs Min A in Supine to sit in Bed with difficuilty. Transfers from EOB to bed side comode Sit to Stand mod-min A with FWW using Gait Belt. Pt very unsteady. High Risk of fall. Patient Independent in UB dressing with set up. Mod A in LB dressing. Toileting & Toilet Hygiene Independent . Pt said that she needs help in LB to wash in shower & my back as I can't reach. , she can wash her upper body . Memory : STM & LTM : Intact. Assessment : 1) Decreased UE Strength , 2) Decreased Activity Tolerance. 3) Dependent in Func. Transfers. 4) Impaired Functional Balance. High risk of Fall. 5) Impaired Bed Mobility. 6) Impaired Self Care Skills . Plan : OT Recommends to continue Skilled OT services by providing Adaptive Devices , Long handled White Sugar Boiler, long hand shoe horn & Long handled Bath -Sponge , Raised toilet seat with side Rails as pt is tall, Continue the same Goals as in the Initial OT .Eval to maximise Functional Independance in all self care activities, func. Transfers & Mobility with AD. Rehab Potential: Good. Josiah Garzon. OTR/L JOSIAH GARZON OT May 01, 2018 14:15
[2018-05-01 14:34] LABS: BILIRUBIN,URINE NEGATIVE (NEGATIVE); CLARITY,URINE CLEAR; COLOR,URINE YELLOW; GLUCOSE, URINE (UA) NEGATIVE (NEGATIVE); KETONES,URINE NEGATIVE (NEGATIVE); LEUKOCYTE ESTERASE ,URINE 2+ (NEGATIVE); NITRITE,URINE NEGATIVE (NEGATIVE); PH,URINE 8 (5-9); PROTEIN,URINE NEGATIVE (NEGATIVE); UROBILINOGEN,URINE NORMAL (NORMAL)
[2018-05-01 14:42] LABS: BACTERIA,URINE TRACE /HPF
[2018-05-01] MEDS: ACETAMINOPHEN 325 MG TABLET PO PRN ×2 (15:08→20:06)
--- NOTE | 2018-05-01 15:20 | NUR ---
INFORMED DR. REVELES THAT PATIENT'S TEMP IS NOW 103.2 AND THAT TYLENOL WAS JUST ADMINISTERED AND THAT UA IS OUT TO CULTURE. RECEIVED ORDER FOR ROCEPHIN 1GM NOW AND INFLUENZA SCREEN.
[2018-05-01] MEDS ORDERED: cefTRIAXone FOR IV USE 1,000 MG in WATER (STERILE) FOR INJECTION 10 ML IV ONE (15:30)
[2018-05-01 15:53] VITALS: BP 107/52
[2018-05-01] MEDS: PRAMIPEXOLE 0.5 MG TAB (MIRAPEX) PO SCH (16:19)
--- NOTE | 2018-05-01 18:30 | Progress Note (SOAP) ---
Subjective Date Seen by a Provider: May 01, 2018 Time Seen by a Provider: 08:45 Subjective/Events-last exam Fwup Acute Post-Op Respiratory Failure, Stridor/Laryngospasm, COPD, Post-op SVT /V Tach, Diabetes mellitus--insulin requiring, insomnia, weakness/fatigue. Was scheduled to go to SNF today but then spiked a fever. Objective Exam Vital Signs Date Time Temp Pulse Resp B/P (MAP) Pulse Ox O2 Delivery O2 Flow Rate FiO2 05/01/18 15:53 101.2 82 20 107/52 (70) 94 Nasal Cannula 3.00 05/01/18 15:38 101.2 05/01/18 15:08 103.3 05/01/18 14:30 94 Nasal Cannula 3.00 05/01/18 13:00 74 05/01/18 12:00 100.4 78 22 119/58 (78) 93 Nasal Cannula 3.00 05/01/18 10:21 93 Nasal Cannula 3.00 05/01/18 08:00 High Flow N/C 3.00 05/01/18 07:52 99.3 89 24 113/53 (73) 94 Nasal Cannula 3.00 05/01/18 07:05 92 Nasal Cannula 3.00 05/01/18 07:00 109 05/01/18 03:53 99.0 75 20 109/55 (73) 94 Nasal Cannula 3.00 05/01/18 02:41 93 Nasal Cannula 3.00 05/01/18 01:00 72 04/30/18 23:31 98.3 75 20 115/56 (75) 97 High Flow N/C 3.00 04/30/18 20:00 High Flow N/C 3.00 04/30/18 19:29 97.2 65 20 107/60 (76) 97 High Flow N/C 2.00 04/30/18 19:08 90 Nasal Cannula 2.00 04/30/18 19:07 80 I & O 05/01/18 07:00 Intake Total 1420 ml Output Total 1475 ml Balance -55 ml Capillary Refill : Less Than 3 SecondsLess Than 3 Seconds General Appearance: No Apparent Distress Neck: Supple Respiratory: Lungs Clear Cardiovascular: Regular Rate, Rhythm Gastrointestinal: normal bowel sounds, non tender, soft Extremity: Non Tender, No Calf Tenderness, No Pedal Edema Neurologic/Psychiatric: Alert, Oriented x3 Results Lab Laboratory Tests 04/30/18 20:29: Glucometer 282H 05/01/18 04:35: White Blood Count 14.0H, Red Blood Count 3.65L, Hemoglobin 10.9L, Hematocrit 34L , Mean Corpuscular Volume 94, Mean Corpuscular Hemoglobin 30, Mean Corpuscular Hemoglobin Concent 32, Red Cell Distribution Width 13.7, Platelet Count 198, Mean Platelet Volume 9.3, Neutrophils (%) (Auto) 76H, Lymphocytes (%) (Auto) 14 , Monocytes (%) (Auto) 9, Eosinophils (%) (Auto) 1, Basophils (%) (Auto) 0, Neutrophils # (Auto) 10.6H, Lymphocytes # (Auto) 1.9, Monocytes # (Auto) 1.3H, Eosinophils # (Auto) 0.1, Basophils # (Auto) 0.0, Neutrophils % (Manual) 83, Lymphocytes % (Manual) 13, Monocytes % (Manual) 4, Eosinophils % (Manual) 0, Basophils % (Manual) 0, Band Neutrophils 0, Polychromasia SLIGHT, Anisocytosis SLIGHT, Elliptocytes SLIGHT, Sodium Level 132L, Potassium Level 3.9, Chloride Level 98, Carbon Dioxide Level 26, Anion Gap 8, Blood Urea Nitrogen 14, Creatinine 0.80, Estimat Glomerular Filtration Rate > 60, BUN/Creatinine Ratio 18, Glucose Level 244H, Calcium Level 9.2, Phosphorus Level 3.6, Magnesium Level 1.6L 05/01/18 05:43: Glucometer 216H 05/01/18 10:54: Glucometer 213H 05/01/18 14:10: Urine Color YELLOW, Urine Clarity CLEAR, Urine pH 8, Urine Specific [place] 1.010L, Urine Protein NEGATIVE, Urine Glucose (UA) NEGATIVE, Urine Ketones NEGATIVE, Urine Nitrite NEGATIVE, Urine Bilirubin NEGATIVE, Urine Urobilinogen NORMAL, Urine Leukocyte Esterase 2+H, Urine RBC (Auto) NEGATIVE, Urine RBC NONE , Urine WBC 10-25H, Urine Squamous Epithelial Cells 2-5, Urine Crystals NONE, Urine Bacteria TRACE, Urine Casts NONE, Urine Mucus NEGATIVE, Urine Culture Indicated YES 05/01/18 16:21: Glucometer 171H Microbiology 04/24/18 Blood Culture - Final, Complete No growth 05/01/18 Influenza Types A,B Antigen (YOLIE) - Final, Complete Assessment/Plan Assessment/Plan Assess & Plan/Chief Complaint 1. Acute Respiratory Failure--on NC 2. Postop Stridor--currently resolved 3. Diabetes mellitus--continue current levemir dose and continue SSI 4. COPD--stable 5. SVT/V Tach--resolved/stable 6. Hypotension/Hypothermia--resolved 7. Insomnia--continue doxepin 8. Weakness--continue PT/OT and DC plans for SNF--on hold due to fever spike 9. Fever--check UA as well as Influenza A and B Clinical Quality Measures Admission Status Admission Dx 1. Post-op stridor with unstable airway--sedated and intubated on ventilator 2. 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 Hypertensive Urgency with SVT--responded to IV cardizem, likely in response to racemic epi 4. Cervical Spinal Stenosis with Anterior C5-C6 fusion--check stat CT of soft tissues to rule out hematoma DVT/VTE Risk/Contraindication: Risk Factor Score Per Nursin RFS Level Per Nursing on Admit: 4+=Very High NANNETTE REVELES DO May 01, 2018 18:30
[2018-05-01 19:25] VITALS: BP 114/56
[2018-05-01] MEDS: GABAPENTIN 100 MG (NEURONTIN) CAP PO SCH (20:57)
[2018-05-01] MEDS: DOXEPIN 10 MG (SINEquan) CAP PO SCH (20:57)
[2018-05-01] MEDS: MELATONIN 3 MG TABLET PO SCH (20:57)
[2018-05-02] VITALS (16 sets, daily range): BP systolic 77–165; BP diastolic 46–130
[2018-05-02] MEDS: ACETAMINOPHEN 325 MG TABLET PO PRN ×3 (01:35→21:09)
[2018-05-02] MEDS: oxyCODONE/APAP 5/325MG (PERCOCET 5) TABLET PO PRN ×2 (02:02→07:22)
[2018-05-02] MEDS: RT-ALBUTEROL/IPRATROPIUM 3 ML (DUONEB) VIAL INH SCH ×6 (02:23→22:29)
[2018-05-02 04:14] LABS: BASOPHILS % (AUTO) 0 % (0-10); EOSINOPHILS % (AUTO) 0 % (0-10); HEMATOCRIT 34 % (35-52); HEMOGLOBIN 10.8 G/DL (11.5-16.0); LYMPHOCYTES # (AUTO) 1.3 X 10^3 (1.0-4.0); LYMPHOCYTES % (AUTO) 8 % (12-44); MEAN CORPUSCULAR HEMOGLOBIN 30 PG (25-34); MEAN CORPUSCULAR HGB CONC 32 G/DL (32-36); MEAN CORPUSCULAR VOLUME 94 FL (80-99); MEAN PLATELET VOLUME 9.3 FL (7.4-10.4); MONOCYTES # (AUTO) 1.7 X 10^3 (0.0-1.0); MONOCYTES % (AUTO) 11 % (0-12); NEUTROPHILS # (AUTO) 12.8 X 10^3 (1.8-7.8); NEUTROPHILS % (AUTO) 81 % (42-75); PLATELET COUNT 207 10^3/uL (130-400); RED CELL DISTRIBUTION WIDTH 13.6 % (10.0-14.5); WHITE BLOOD COUNT 15.8 10^3/uL (4.3-11.0)
[2018-05-02 04:30] LABS: BUN/CREATININE RATIO 16; CALCIUM 9.2 MG/DL (8.5-10.1); CARBON DIOXIDE 24 MMOL/L (21-32); CHLORIDE 99 MMOL/L (98-107); GFR ESTIMATED > 60; GLUCOSE 196 MG/DL (70-105); MAGNESIUM 1.7 MG/DL (1.8-2.4); PHOSPHORUS 3.8 MG/DL (2.3-4.7); POTASSIUM 3.8 MMOL/L (3.6-5.0); SODIUM 134 MMOL/L (135-145)
[2018-05-02] MEDS: MULTIVIT W/MINERALS TAB (THERAGRAN M) PO SCH (05:20)
[2018-05-02] MEDS: inSUlin ASPART (NovoLOG) 1 UNIT/0.01 ML (CHARGE PER UNIT) SQ SCH ×4 (06:22→21:09)
--- NOTE | 2018-05-02 07:09 | Progress Note (SOAP) ---
Subjective Date Seen by a Provider: May 02, 2018 Time Seen by a Provider: 07:07 Subjective/Events-last exam EDWIN. Doing well from spine standpoint. denies neck or arm pain. Was supposed to dc to SNF yesterday but spiked fever. Objective Exam Vital Signs Date Time Temp Pulse Resp B/P (MAP) Pulse Ox O2 Delivery O2 Flow Rate FiO2 05/02/18 03:57 99.2 63 20 104/65 (78) 95 Nasal Cannula 3.00 05/02/18 02:04 99.9 05/02/18 02:04 99.9 05/02/18 02:02 99.9 05/02/18 01:35 101.9 05/02/18 01:35 101.9 05/02/18 01:00 79 05/02/18 00:00 99.5 82 20 128/61 (83) 94 Nasal Cannula 3.00 05/01/18 21:39 91 Nasal Cannula 3.00 05/01/18 20:52 100.7 05/01/18 20:06 101.0 05/01/18 20:00 High Flow N/C 3.00 05/01/18 19:25 100.8 82 20 114/56 (75) 94 Nasal Cannula 3.00 05/01/18 19:04 90 Nasal Cannula 3.00 05/01/18 15:53 101.2 82 20 107/52 (70) 94 Nasal Cannula 3.00 05/01/18 15:08 103.3 05/01/18 14:30 94 Nasal Cannula 3.00 05/01/18 13:00 74 05/01/18 12:00 100.4 78 22 119/58 (78) 93 Nasal Cannula 3.00 05/01/18 10:21 93 Nasal Cannula 3.00 05/01/18 08:00 High Flow N/C 3.00 05/01/18 07:52 99.3 89 24 113/53 (73) 94 Nasal Cannula 3.00 I & O 05/02/18 07:00 Intake Total 1520 ml Output Total 2400 ml Balance -880 ml Capillary Refill : Less Than 3 SecondsLess Than 3 Seconds General Appearance: No Apparent Distress Neurologic/Psychiatric: Other (cervical wound CDI, dressing in place, 5/5 motor dylan UE, NVSI) Results Lab Laboratory Tests 05/01/18 10:54: Glucometer 213H 2/28/19 14:10: Urine Color YELLOW, Urine Clarity CLEAR, Urine pH 8, Urine Specific [place] 1.010L, Urine Protein NEGATIVE, Urine Glucose (UA) NEGATIVE, Urine Ketones NEGATIVE, Urine Nitrite NEGATIVE, Urine Bilirubin NEGATIVE, Urine Urobilinogen NORMAL, Urine Leukocyte Esterase 2+H, Urine RBC (Auto) NEGATIVE, Urine RBC NONE , Urine WBC 10-25H, Urine Squamous Epithelial Cells 2-5, Urine Crystals NONE, Urine Bacteria TRACE, Urine Casts NONE, Urine Mucus NEGATIVE, Urine Culture Indicated YES 05/01/18 16:21: Glucometer 171H 05/01/18 20:14: Glucometer 181H 05/02/18 04:00: White Blood Count 15.8H, Red Blood Count 3.63L, Hemoglobin 10.8L, Hematocrit 34L , Mean Corpuscular Volume 94, Mean Corpuscular Hemoglobin 30, Mean Corpuscular Hemoglobin Concent 32, Red Cell Distribution Width 13.6, Platelet Count 207, Mean Platelet Volume 9.3, Neutrophils (%) (Auto) 81H, Lymphocytes (%) (Auto) 8L , Monocytes (%) (Auto) 11, Eosinophils (%) (Auto) 0, Basophils (%) (Auto) 0, Neutrophils # (Auto) 12.8H, Lymphocytes # (Auto) 1.3, Monocytes # (Auto) 1.7H, Eosinophils # (Auto) 0.0, Basophils # (Auto) 0.0, Sodium Level 134L, Potassium Level 3.8, Chloride Level 99, Carbon Dioxide Level 24, Anion Gap 11, Blood Urea Nitrogen 13, Creatinine 0.80, Estimat Glomerular Filtration Rate > 60, BUN/ Creatinine Ratio 16, Glucose Level 196H, Calcium Level 9.2, Phosphorus Level 3.8 , Magnesium Level 1.7L Microbiology 04/24/18 Blood Culture - Final, Complete No growth 05/01/18 Influenza Types A,B Antigen (YOLIE) - Final, Complete Assessment/Plan Assessment/Plan Assess & Plan/Chief Complaint ASSESSMENT: s/p ACDF respiratory arrest requiring intubation: resolved fever: workup in progress continue abx per medicine PLAN: stable from spine standpoint f/u 2 weeks s/p surgery date with dr bhatt spine precautions keep dressings CDI Clinical Quality Measures DVT/VTE Risk/Contraindication: Risk Factor Score Per Nursin RFS Level Per Nursing on Admit: 4+=Very High EULA BHATT DO May 02, 2018 07:09
[2018-05-02] MEDS: APIXABAN 5 MG (ELIQUIS) TABLET PO SCH ×2 (07:23→21:09)
[2018-05-02] MEDS: MAGNESIUM OXIDE (MAG-OX)400 MG TAB PO SCH ×2 (07:26→17:45)
[2018-05-02] MEDS: FAMOTIDINE 20MG/2ML IV (PEPCID) IVP SCH ×2 (08:24→21:15)
[2018-05-02] MEDS: busPIRone 5 MG (BUSPAR) TAB PO SCH ×3 (08:24→21:08)
[2018-05-02] MEDS: inSUlin DETERMIR 1 UNIT/0.01 ML (LEVEMIR) CHARGE PER UNIT SQ SCH (08:24)
[2018-05-02] MEDS: SENNOSIDES 8.6 MG (SENOKOT) TAB PO SCH ×2 (08:24→21:09)
[2018-05-02] MEDS: GABAPENTIN 300 MG (NEURONTIN) CAP PO SCH ×2 (08:27→21:09)
[2018-05-02] MEDS: meTOprolol TARTRATE 50 MG (LOPRESSOR) TAB PO SCH ×2 (09:16→21:09)
[2018-05-02] MEDS: DILTIAZEM 240 MG (CARDIZEM CD) CAP PO SCH (09:16)
--- NOTE | 2018-05-02 09:16 | NUR ---
CARDIZEM AND METOPROLOL HELD THIS A.M. FOR HYPOTENSION. YASMANI MONTOYA AWARE OF THIS .
[2018-05-02] MEDS ORDERED: MAGNESIUM 1 GM/100 ML IVPB 100 ML IV ONE (09:30)
--- NOTE | 2018-05-02 09:32 | Progress Note-Cardiology ---
Cardiology SOAP Progress Note Subjective: Sitting up in a chair at the bedside. She reports occ lose cough. No c/o CP, palpitations, syncope or near syncope. Objective: I&O/Vital Signs 05/02/18 05/02/18 05/02/18 05/02/18 07:30 07:57 08:00 10:39 Temp 96.8 Pulse 60 Resp 20 B/P (MAP) 96/52 (67) Pulse Ox 92 93 93 90 O2 Delivery Nasal Cannula Nasal Cannula Nasal Cannula Nasal Cannula O2 Flow Rate 3.00 3.00 3.00 3.00 05/02/18 05/02/18 05/02/18 05/02/18 10:53 11:15 11:30 11:30 Temp 102.5 Pulse 97 Resp 25 B/P (MAP) 165/130 (142) Pulse Ox 89 100 O2 Delivery Nasal Cannula Vapotherm Vapotherm O2 Flow Rate 3.00 40.00 30.00 30.00 FiO2 40 05/02/18 05/02/18 05/02/18 05/02/18 12:00 12:00 12:30 13:00 Temp 103.2 Pulse 97 87 Resp 25 27 B/P (MAP) 141/97 (112) 124/58 (80) Pulse Ox 97 98 96 O2 Delivery Vapotherm Vapotherm Vapotherm O2 Flow Rate 3.00 30.00 30.00 30.00 30.00 FiO2 40 05/02/18 05/02/18 05/02/18 05/02/18 13:05 13:10 14:00 14:24 Temp 104.0 101.3 Pulse 87 87 Resp 26 B/P (MAP) 94/46 (62) Pulse Ox 96 O2 Delivery Vapotherm O2 Flow Rate 30.00 30.00 05/02/18 05/02/18 05/02/18 05/02/18 15:00 15:08 15:47 16:00 Pulse 79 73 Resp 16 10 B/P (MAP) 85/76 (79) 77/49 (58) Pulse Ox 97 96 97 96 O2 Delivery Vapotherm Vapotherm Vapotherm Vapotherm O2 Flow Rate 30.00 40.00 3.00 30.00 30.00 30.00 FiO2 35 40 05/02/18 05/02/18 05/02/18 17:00 18:00 18:45 Pulse 72 72 Resp 22 13 B/P (MAP) 102/71 (81) 108/50 (69) Pulse Ox 97 97 92 O2 Delivery Vapotherm Vapotherm Vapotherm O2 Flow Rate 30.00 30.00 30.00 30.00 30.00 FiO2 30 05/02/18 00:00 Intake Total 1320 ml Output Total 2100 ml Balance -780 ml Weight (Pounds): 220 Weight (Ounces): 0.0 Weight (Calculated Kilograms): 99.002268 Constitutional: AAO x 3 Respiratory: chest is bilaterally symmetric, rhonchi (scattered), other ( diminished lower lobes bilat with poor inspiratory effort) Cardiovascular: regular rate-rhythm, S1 and S2, systolic murmur (soft WOLF at card base) Gastrointestional: soft, audible bowel sounds Extremities: No significant edema Neurologic/Psychiatric: grossly intact Skin: No rash, No ulcerations Results/Procedures: Labs Laboratory Tests 05/01/18 20:14: Glucometer 181H 05/02/18 04:00: White Blood Count 15.8H, Red Blood Count 3.63L, Hemoglobin 10.8L, Hematocrit 34L , Mean Corpuscular Volume 94, Mean Corpuscular Hemoglobin 30, Mean Corpuscular Hemoglobin Concent 32, Red Cell Distribution Width 13.6, Platelet Count 207, Mean Platelet Volume 9.3, Neutrophils (%) (Auto) 81H, Lymphocytes (%) (Auto) 8L , Monocytes (%) (Auto) 11, Eosinophils (%) (Auto) 0, Basophils (%) (Auto) 0, Neutrophils # (Auto) 12.8H, Lymphocytes # (Auto) 1.3, Monocytes # (Auto) 1.7H, Eosinophils # (Auto) 0.0, Basophils # (Auto) 0.0, Sodium Level 134L, Potassium Level 3.8, Chloride Level 99, Carbon Dioxide Level 24, Anion Gap 11, Blood Urea Nitrogen 13, Creatinine 0.80, Estimat Glomerular Filtration Rate > 60, BUN/ Creatinine Ratio 16, Glucose Level 196H, Calcium Level 9.2, Phosphorus Level 3.8 , Magnesium Level 1.7L 05/02/18 10:34: Lactic Acid Level 1.85 05/02/18 11:04: Glucometer 290H 05/02/18 11:25: White Blood Count 14.2H, Red Blood Count 3.97L, Hemoglobin 11.8, Hematocrit 37, Mean Corpuscular Volume 94, Mean Corpuscular Hemoglobin 30, Mean Corpuscular Hemoglobin Concent 32, Red Cell Distribution Width 13.6, Platelet Count 230, Mean Platelet Volume 9.3, Neutrophils (%) (Auto) 82H, Lymphocytes (%) (Auto) 8L , Monocytes (%) (Auto) 10, Eosinophils (%) (Auto) 1, Basophils (%) (Auto) 0, Neutrophils # (Auto) 11.6H, Lymphocytes # (Auto) 1.1, Monocytes # (Auto) 1.4H, Eosinophils # (Auto) 0.1, Basophils # (Auto) 0.0, Sodium Level 133L, Potassium Level 4.6, Chloride Level 97L, Carbon Dioxide Level 26, Anion Gap 10, Blood Urea Nitrogen 15, Creatinine 1.10, Estimat Glomerular Filtration Rate 49, BUN/ Creatinine Ratio 14, Glucose Level 311H, Calcium Level 9.5, Corrected Calcium 10.1, Phosphorus Level 3.5, Magnesium Level 2.1, Total Bilirubin 0.5, Aspartate Amino Transf (AST/SGOT) 24, Alanine Aminotransferase (ALT/SGPT) 20, Alkaline Phosphatase 100, Troponin I < 0.028, B-Type Natriuretic Peptide 72.5, Total Protein 6.3L, Albumin 3.2 05/02/18 11:26: Blood Gas Puncture Site RR, Blood Gas Patient Temperature 102.3, Arterial Blood pH 7.39, Arterial Blood Partial Pressure CO2 48H, Arterial Blood Partial Pressure O2 54L, Arterial Blood HCO3 28H, Arterial Blood Total CO2 28.8, Arterial Blood Oxygen Saturation 82L, Arterial Blood Base Excess 3.3H, Manjit Test YES-POS, Blood Gas Ventilator Setting NO, Blood Gas Inspired Oxygen 10NRB 05/02/18 12:10: Urine Color AMBERH, Urine Clarity CLEAR, Urine pH 6, Urine Specific [place] 1.020, Urine Protein 2+H, Urine Glucose (UA) 4+H, Urine Ketones NEGATIVE, Urine Nitrite NEGATIVE, Urine Bilirubin NEGATIVE, Urine Urobilinogen NORMAL, Urine Leukocyte Esterase 1+H, Urine RBC (Auto) 2+H, Urine RBC 0-2, Urine WBC 25-50H, Urine Squamous Epithelial Cells 5-10, Urine Crystals NONE, Urine Bacteria MODERATEH, Urine Casts NONE, Urine Mucus NEGATIVE, Urine Culture Indicated YES 05/02/18 12:25: Lactic Acid Level 0.77 05/02/18 17:38: Glucometer 279H Microbiology 04/24/18 Blood Culture - Final, Complete No growth 05/02/18 Influenza Types A,B Antigen (YOLIE) - Final, Complete 05/01/18 Urine Culture - Preliminary, Resulted Strep Species, Gamma-Hemolytic Procedures NAME: BRAYDON ARBOLEDA [facility] REC#: [id number] PT STATUS: ADM IN : 1945 PHYSICIAN: THERESA SALEEM DO ADMIT DATE: 04/21/18 Signed Date of Exam: 05/01/18 CHEST 1 VIEW, AP/PA ONLY INDICATION: Shortness of breath. Comparison is made with prior examination from 04/30/2018. FINDINGS: There is cardiomegaly. There is left basilar infiltrate and left pleural effusion. There is no pneumothorax. The mediastinum is unremarkable. Pacemaker overlies the left hemithorax. IMPRESSION: Left basilar infiltrate and left pleural effusion. Dictated by: Dictated on workstation # [id number] Dict: 05/01/18 0751 Trans: 05/01/18 0759 Interpreted by: ABRAN ROY MD Electronically signed by: ABRAN ROY MD 05/01/18 0759 A/P: Assessment: Fever, rigors, leucocytosis and L pleural effusion: Likely L-sided pnemonia PAF with RVR associated with hypotension - converted to NSR on 04-24-18 Eliquis for stroke prophylaxis S/p spinal fusion surgery and post-op resp failure requiring intubation and [facility] hospital vent- extubated Echo of 04/23/18: mod concentric LVH, LVEF 65-70%, mild left atrial enlargement, PASP 30-35 mmHg Electrolyte abnormalities Previous h/o paroxysmal atrial tach and palpitations Chronic migraine headaches. Chronic body pains and fibromyalgia. H/o labile hypertension and postural hypotension History of perioperative bradycardia (asystole) and tachycardia (ventricular fibrillation). 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 MPI of Nov 2017 showed no evidence of significant myocardial ischemia or infarction. LVEF 78% Chronic pain syndrome. Obesity with a body mass index of approximately 36 The patient has been intolerant to statin therapy on account of chronic pain syndrome. DM II, insulin requiring, managed by [facility] care consultant Cough of undetermined etiology. Dr Saleem following and has diagnosed restrictive lung disease Suspected LION - awaiting sleep studies at [facility] Bilateral intermittent leg swelling, chornic. 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 This necessitated transfer to ICU. No cp or palp or syncope. Notes gen malaise Cor: reg Lungs: diminished bs at L base and L mid zone Ext: no c/c/; mild edema A&R * As documented in our note above that I updated (italics) and as noted below * May hold Eliquis x 48 hours for thoracentesis * I had a detailed discussion with her and her son regarding her CV issues YASMANI HAMILTON May 02, 2018 09:32 ULI YOO MD [facility]S May 02, 2018 19:05
--- NOTE | 2018-05-02 09:42 | Physical Therapy Daily Note ---
PT Daily Note-Current Subjective Pt was in bed and agrees to PT. Pt requests to use BSC before walking. Mental Status Patient Orientation: Person, Place, Situation, Normal For Age Attachments: Oxygen (3L) Transfers Therapy Code Descriptions/Definitions Functional [place] Measure: 0=Not Assessed/NA 4=Minimal Assistance 1=Total Assistance 5=Supervision or Setup 2=Maximal Assistance 6=Modified [place] 3=Moderate Assistance 7=Complete [place] Therapy Quality Codes: 6 Independent with activity with or without an assistive device 5 Patient requires set up or clean up by helper. Patient completes activity by themselves 4 Supervision or touching assist (CGA). [place] provide cues , steadying assist 3 The helper provides less than half the effort to complete the activity 2 The helper provides more than half the effort to complete the activity 1 Dependent. The helper does all the effort to complete an activity 7 Patient refused to complete or attempt activity 9 The patient did not perform the activity before the current illness or injury 88 Not attempted due to Medical conditions or safety concerns Transfers (B, C, W/C) (FIM): 5 Scootin Rollin Supine to/from Sit: 5 Sit to/from Stand: 5 Weight Bearing Right Lower Extremity: Right Full Weight Bearing Left Lower Extremity: Left Full Weight Bearing Gait Training Gait (FIM): 5 Distance (FIM): 3=150 ft Distance: 150' Gait Level of Assist: 5 Gait Persons Needed: 1 Gait Assistive Device: FWW Assessment Current Status: Fair Progress Pt was able to perform bed mobility with mod I and SBA. Pt transfers SBA from EOB to FWW and transfers to BSC. Pt is mod I with bathroom skills. Pt demonstrates amb of 150' with FWW and SBA on 5L O2. SPT instructs pt during amb to stop when she needs to and stay within walker for energy conservation. Pt returned to room and transferred to recliner. Pt has all needs met. PT to increase activity as pt is able to tolerate. PT Short Term Goals Short Term Goals Time Frame: May 10, 2018 Transfers (B,C,W/C) (FIM): 4 Gait (FIM): 1 Distance (FIM): 1=up to 49 ft Gait Distance Comment: 25' Gait Level of Assist: 4 Gait Assistive Device: FWW PT Plan Problem List Problem List: Activity Tolerance, Functional Strength, Safety, Balance, Gait, Transfer, Bed Mobility, ROM Treatment/Plan Treatment Plan: Continue Plan of Care Treatment Plan: Bed Mobility, Education, Functional Activity Eileen, Functional Strength, Gait, Safety, Therapeutic Exercise, Transfers Treatment Duration: May 10, 2018 Frequency: 6 times per week Estimated Hrs Per Day: .25 hour per day Patient and/or Family Agrees t: Yes Time/GCodes Time In: 845 Time Out: 901 Total Billed Treatment Time: 16 Total Billed Treatment 1 visit GT 16 min IRENE NEGRO PT May 02, 2018 09:42
[2018-05-02] MEDS: CEFEPIME INJECTION 2,000 MG in WATER (STERILE) FOR INJECTION 20 ML IV SCH ×2 (10:03→21:00)
--- NOTE | 2018-05-02 11:10 | NUR ---
DR. COOK AT BEDSIDE AT THIS TIME, PATIENT CONDITION HAS DECLINED SIGNIFICANTLY SINCE INITIAL A.M. ASSESSMENT. NEW ORDERS TO TRANSFER PATIENT TO [facility] AT THIS TIME. REPORT GIVEN TO Riaz HARTMANN RN WHO IS ASSUMING CARE OF THIS PATIENT IN ICU. PATIENT WAS FOUND IN HER RECLINER ON 4 LITERS OF OXYGEN HAVING AUDIBLE STRIDOR. WITH ASSISTANCE FROM OTHER STAFF ( SUSANA, FRANCO) PATIENT WAS MOVED BACK TO HER BED. RT ALSO AT HER BEDSIDE AND TRANSITIONED HER TO A NRB MASK AT [address] COOK DID REMAIN WITH THE PATIENT UNTIL REACHING HER ROOM IN ICU. THE ACTUAL TRANSFER OCCURED AT 1115 TO THE ICU.
--- NOTE | 2018-05-02 11:15 | NUR ---
Received pt from 4th floor, report received from SHRAVAN Garrison. Pt found to have 102.5 fever, tylenol given at 1120.
--- NOTE | 2018-05-02 11:15 | Progress Note (SOAP) ---
Subjective Date Seen by a Provider: May 02, 2018 Time Seen by a Provider: 09:15 Subjective/Events-last exam Fwup Acute Post-Op Respiratory Failure, Stridor/Laryngospasm, COPD, Post-op SVT /V Tach, Diabetes mellitus--insulin requiring, insomnia, weakness/fatigue. Patient spiked fever yesterday and is more dyspneic with cough today. Focused Exam Lactate Level 05/02/18 10:34: Lactic Acid Level 1.85 Lactic Acid Level Laboratory Tests Test 05/02/18 10:34 Lactic Acid Level 1.85 MMOL/L (0.50-2.00) Objective Exam Vital Signs Date Time Temp Pulse Resp B/P (MAP) Pulse Ox O2 Delivery O2 Flow Rate FiO2 05/02/18 10:53 89 Nasal Cannula 3.00 05/02/18 10:39 90 Nasal Cannula 3.00 05/02/18 08:00 93 Nasal Cannula 3.00 05/02/18 07:57 96.8 60 20 96/52 (67) 93 Nasal Cannula 3.00 05/02/18 07:30 92 Nasal Cannula 3.00 05/02/18 07:00 60 05/02/18 03:57 99.2 63 20 104/65 (78) 95 Nasal Cannula 3.00 05/02/18 02:04 99.9 05/02/18 02:04 99.9 05/02/18 02:02 99.9 05/02/18 01:35 101.9 05/02/18 01:35 101.9 05/02/18 01:00 79 05/02/18 00:00 99.5 82 20 128/61 (83) 94 Nasal Cannula 3.00 05/01/18 21:39 91 Nasal Cannula 3.00 05/01/18 20:52 100.7 05/01/18 20:06 101.0 05/01/18 20:00 High Flow N/C 3.00 05/01/18 19:25 100.8 82 20 114/56 (75) 94 Nasal Cannula 3.00 05/01/18 19:04 90 Nasal Cannula 3.00 05/01/18 15:53 101.2 82 20 107/52 (70) 94 Nasal Cannula 3.00 05/01/18 15:08 103.3 05/01/18 14:30 94 Nasal Cannula 3.00 05/01/18 13:00 74 05/01/18 12:00 100.4 78 22 119/58 (78 93 Nasal Cannula 3.00 I & O 05/02/18 07:00 Intake Total 1520 ml Output Total 2400 ml Balance -880 ml Capillary Refill : Less Than 3 SecondsLess Than 3 Seconds General Appearance: Mild Distress Neck: Supple Respiratory: Decreased Breath Sounds (coarse), Stridor (with cough) Cardiovascular: Regular Rate, Rhythm Gastrointestinal: normal bowel sounds, non tender, soft Extremity: Non Tender, No Calf Tenderness, No Pedal Edema Neurologic/Psychiatric: Alert, Oriented x3 Results Lab Laboratory Tests 05/01/18 14:10: Urine Color YELLOW, Urine Clarity CLEAR, Urine pH 8, Urine Specific [place] 1.010L, Urine Protein NEGATIVE, Urine Glucose (UA) NEGATIVE, Urine Ketones NEGATIVE, Urine Nitrite NEGATIVE, Urine Bilirubin NEGATIVE, Urine Urobilinogen NORMAL, Urine Leukocyte Esterase 2+H, Urine RBC (Auto) NEGATIVE, Urine RBC NONE , Urine WBC 10-25H, Urine Squamous Epithelial Cells 2-5, Urine Crystals NONE, Urine Bacteria TRACE, Urine Casts NONE, Urine Mucus NEGATIVE, Urine Culture Indicated YES 05/01/18 16:21: Glucometer 171H 05/01/18 20:14: Glucometer 181H 05/02/18 04:00: White Blood Count 15.8H, Red Blood Count 3.63L, Hemoglobin 10.8L, Hematocrit 34L , Mean Corpuscular Volume 94, Mean Corpuscular Hemoglobin 30, Mean Corpuscular Hemoglobin Concent 32, Red Cell Distribution Width 13.6, Platelet Count 207, Mean Platelet Volume 9.3, Neutrophils (%) (Auto) 81H, Lymphocytes (%) (Auto) 8L , Monocytes (%) (Auto) 11, Eosinophils (%) (Auto) 0, Basophils (%) (Auto) 0, Neutrophils # (Auto) 12.8H, Lymphocytes # (Auto) 1.3, Monocytes # (Auto) 1.7H, Eosinophils # (Auto) 0.0, Basophils # (Auto) 0.0, Sodium Level 134L, Potassium Level 3.8, Chloride Level 99, Carbon Dioxide Level 24, Anion Gap 11, Blood Urea Nitrogen 13, Creatinine 0.80, Estimat Glomerular Filtration Rate > 60, BUN/ Creatinine Ratio 16, Glucose Level 196H, Calcium Level 9.2, Phosphorus Level 3.8 , Magnesium Level 1.7L 05/02/18 10:34: Lactic Acid Level 1.85 Microbiology 04/24/18 Blood Culture - Final, Complete No growth 05/01/18 Influenza Types A,B Antigen (YOLIE) - Final, Complete Assessment/Plan Assessment/Plan Assess & Plan/Chief Complaint 1. Acute Respiratory Failure--on NC but more raspy today 2. Postop Stridor--reoccurring with cough 3. Diabetes mellitus--continue current levemir dose and continue SSI 4. COPD--stable 5. SVT/V Tach--resolved/stable 6. Hypotension/Hypothermia--resolved 7. Insomnia--continue doxepin 8. Weakness--continue PT/OT and DC plans for SNF--on hold due to worsening medically 9. Acute UTI and left basilar pleural effusion with possible infiltrate-- Change to meropenem due to fever/WBC count increasing/lungs more coarse Clinical Quality Measures Admission Status Admission Dx 1. Post-op stridor with unstable airway--sedated and intubated on ventilator 2. 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 Hypertensive Urgency with SVT--responded to IV cardizem, likely in response to racemic epi 4. Cervical Spinal Stenosis with Anterior C5-C6 fusion--check stat CT of soft tissues to rule out hematoma DVT/VTE Risk/Contraindication: Risk Factor Score Per Nursin RFS Level Per Nursing on Admit: 4+=Very High NANNETTE REVELES DO May 02, 2018 11:15
--- NOTE | 2018-05-02 11:16 | Occ Therapy Progress Note ---
Therapy Progress Note Respiratory in room when BARRERA entered. Pt shaking uncontrollably. Started to discuss pt occupation and what OT is. Discussing AE for home use and what pt was attempting to get. Pt then requested to use BSC and change Depend, went to find assistance. Nrsg, physician came into room to monitor pt. Decision made to transfer pt to ICU. Will need new orders. 1, FA 2 (23 min) [phone] ALYSHA CHIANG May 02, 2018 11:16
--- NOTE | 2018-05-02 11:20 | NUR ---
Pastoral care visit, met with pts son at bedside in ICU, provided support, had pray with son and pt.
[2018-05-02 11:42] LABS: BASOPHILS % (AUTO) 0 % (0-10); EOSINOPHILS # (AUTO) 0.1 10^3/uL (0.0-0.3); EOSINOPHILS % (AUTO) 1 % (0-10); HEMATOCRIT 37 % (35-52); HEMOGLOBIN 11.8 G/DL (11.5-16.0); LYMPHOCYTES # (AUTO) 1.1 X 10^3 (1.0-4.0); LYMPHOCYTES % (AUTO) 8 % (12-44); MEAN CORPUSCULAR HEMOGLOBIN 30 PG (25-34); MEAN CORPUSCULAR HGB CONC 32 G/DL (32-36); MEAN CORPUSCULAR VOLUME 94 FL (80-99); MEAN PLATELET VOLUME 9.3 FL (7.4-10.4); MONOCYTES # (AUTO) 1.4 X 10^3 (0.0-1.0); MONOCYTES % (AUTO) 10 % (0-12); NEUTROPHILS # (AUTO) 11.6 X 10^3 (1.8-7.8); NEUTROPHILS % (AUTO) 82 % (42-75); PLATELET COUNT 230 10^3/uL (130-400); RED CELL DISTRIBUTION WIDTH 13.6 % (10.0-14.5); WHITE BLOOD COUNT 14.2 10^3/uL (4.3-11.0)
--- NOTE | 2018-05-02 11:46 | Pulmonary Progress Note ---
Subjective Time Seen by a Provider: 11:45 Subjective/Events-last exam Upon walking into patients room she was having rigors/chills and appears in respiratory distress. Sp02 shows 71%. RT and ICU called for transfer. I have also updated Dr. Reid. Sepsis Event Evaluation Height, Weight, BMI Height: 5'5.00" Weight: 220lbs. 0.0oz. 99.653366td; 36.6 BMI Method:Estimated Focused Exam Lactate Level 05/02/18 10:34: Lactic Acid Level 1.85 Lactic Acid Level Laboratory Tests Test 05/02/18 10:34 Lactic Acid Level 1.85 MMOL/L (0.50-2.00) Exam Exam Vital Signs Date Time Temp Pulse Resp B/P (MAP) Pulse Ox O2 Delivery O2 Flow Rate FiO2 05/02/18 10:53 89 Nasal Cannula 3.00 05/02/18 10:39 90 Nasal Cannula 3.00 05/02/18 08:00 93 Nasal Cannula 3.00 05/02/18 07:57 96.8 60 20 96/52 (67) 93 Nasal Cannula 3.00 05/02/18 07:30 92 Nasal Cannula 3.00 05/02/18 07:00 60 05/02/18 03:57 99.2 63 20 104/65 (78) 95 Nasal Cannula 3.00 05/02/18 02:04 99.9 05/02/18 02:04 99.9 05/02/18 02:02 99.9 05/02/18 01:35 101.9 05/02/18 01:35 101.9 05/02/18 01:00 79 05/02/18 00:00 99.5 82 20 128/61 (83) 94 Nasal Cannula 3.00 05/01/18 21:39 91 Nasal Cannula 3.00 05/01/18 20:52 100.7 05/01/18 20:06 101.0 05/01/18 20:00 High Flow N/C 3.00 05/01/18 19:25 100.8 82 20 114/56 (75) 94 Nasal Cannula 3.00 05/01/18 19:04 90 Nasal Cannula 3.00 05/01/18 15:53 101.2 82 20 107/52 (70) 94 Nasal Cannula 3.00 05/01/18 15:08 103.3 05/01/18 14:30 94 Nasal Cannula 3.00 05/01/18 13:00 74 05/01/18 12:00 100.4 78 22 119/58 (78) 93 Nasal Cannula 3.00 I & O 05/02/18 07:00 Intake Total 1520 ml Output Total 2400 ml Balance -880 ml Height & Weight Height: 5'5.00" Weight: 220lbs. 0.0oz. 99.247128cu; 36.6 BMI Method:Estimated General Appearance: Severe Distress Neck: Supple Respiratory: Accessory Muscle Use, Crackles, Decreased Breath Sounds (coarse), Respiratory Distress, Stridor (with cough) Cardiovascular: Regular Rate, Rhythm Capillary Refill: Less Than 3 Seconds Gastrointestinal: normal bowel sounds, non tender, soft Extremity: Non Tender, No Calf Tenderness, No Pedal Edema Neurologic/Psychiatric: Alert, Oriented x3 Skin: Warm/Dry, Cool, Pallor Lymphatic: No Adenopathy Results Lab Laboratory Tests 05/01/18 04:35 05/02/18 04:00 Assessment/Plan Assessment/Plan Acute respiratory failure -Increase oxygen to Vapotherm -Stat ABG -Must be cautious with IVF secondary to hx of rapid respiratory decline and failure. Recently intubated post surgery secondary to rapid respiratory decline. Acute onset of fever/rigors/worsening hypoxia -Transfer pt to ICU -Increase oxygen to NRB -Stat ABG -EKG -Stat repeat CBC, CMP, lactic acid, troponins -[place]ke[place] cultures with 1 culture from central line -1 liter IVF bolus Hypokalemia, hypomag -replace S/p C5-C6 fusion 04/22 Afib - -Amio, digoxin, cardizem -Cardiology following Hx of laryngal spasms -Ativan PRN HX of cardiac arrest 2010 Last EF 50-55% CAD Obesity THERESA COOK DO May 02, 2018 11:45
[2018-05-02 11:47] LABS: ABG BASE EXCESS 3.3 MMOL/L (-2.5-2.5); ABG OXYGEN SATURATION 82 % (94-100); ABG PCO2 48 MMHG (35-45); ABG PH 7.39 (7.37-7.43); ABG PO2 54 MMHG (79-93); ABG TCO2 28.8 MMOL/L (21.0-31.0)
[2018-05-02 11:49] LABS: ALLENS TEST YES-POS; INSPIRED O2 10NRB; PATIENT TEMP 102.3; VENTILATOR NO
[2018-05-02 12:01] LABS: ALANINE AMINOTRANSFERASE 20 U/L (0-55); ALBUMIN 3.2 GM/DL (3.2-4.5); ALKALINE PHOSPHATASE 100 U/L (40-136); BILIRUBIN,TOTAL 0.5 MG/DL (0.1-1.0); BUN/CREATININE RATIO 14; CALCIUM 9.5 MG/DL (8.5-10.1); CARBON DIOXIDE 26 MMOL/L (21-32); CHLORIDE 97 MMOL/L (98-107); GFR ESTIMATED 49; GLUCOSE 311 MG/DL (70-105); MAGNESIUM 2.1 MG/DL (1.8-2.4); PHOSPHORUS 3.5 MG/DL (2.3-4.7); POTASSIUM 4.6 MMOL/L (3.6-5.0); SODIUM 133 MMOL/L (135-145); TOTAL PROTEIN 6.3 GM/DL (6.4-8.2)
[2018-05-02] MEDS ORDERED: PHARMACY TO DOSE IV SCH (12:15)
[2018-05-02] MEDS ORDERED: VANCOMYCIN INJECTION 1,000 MG in NS (IVPB) 250 ML IV SCH (12:15)
[2018-05-02] MEDS ORDERED: VANCOMYCIN 2,500 MG/NS 500 ML IVPB IV NR ×2 (12:30)
--- NOTE | 2018-05-02 12:34 | NUR ---
VANCOMYCIN PHARMACY TO DOSE: BASED ON ADJ BW 74.1 KG, SCr 1.10, EST CrCl 55 LOADING DOSE: 2,500 MG MAIN DOSE: 1,500 MG IV Q24HR VANCOMYCIN TROUGH ORDERED FOR 05/05/18 @ 11:30 IF TROUGH IS GREATER THAN 20 HOLD 05/05/18 12:00 DOSE.
[2018-05-02] MEDS ORDERED: NS IV 1000 ML 1,000 ML IV SCH (13:00)
[2018-05-02] MEDS ORDERED: KETOROLAC 30 MG/ML VIAL IVP NR (13:00)
--- NOTE | 2018-05-02 13:00 | NUR ---
Dr. Saleem informed that temp continues to rise, 104 at this time. New orders received.
[2018-05-02 13:04] LABS: BILIRUBIN,URINE NEGATIVE (NEGATIVE); CLARITY,URINE CLEAR; COLOR,URINE AMBER; GLUCOSE, URINE (UA) 4+ (NEGATIVE); KETONES,URINE NEGATIVE (NEGATIVE); LEUKOCYTE ESTERASE ,URINE 1+ (NEGATIVE); NITRITE,URINE NEGATIVE (NEGATIVE); PH,URINE 6 (5-9); PROTEIN,URINE 2+ (NEGATIVE); UROBILINOGEN,URINE NORMAL (NORMAL)
--- NOTE | 2018-05-02 13:09 | NUR ---
PT EATING WELL, 83% MEALS. NO WEIGHT SINCE ADMISSION. RECOMMEND WEEKLY WEIGHTS TO BETTER ASSESS ADEQUACY OF PO INTAKE.
[2018-05-02 13:25] LABS: BACTERIA,URINE MODERATE /HPF; RBC,URINE 0-2 /HPF; WBC,URINE 25-50 /HPF
--- NOTE | 2018-05-02 13:46 | NUR ---
PICC Line nurses still in room. Unable to start medications ordered at this time. Dr. Saleem informed.
[2018-05-02] MEDS: NS IV 1000 ML 1,000 ML IV SCH ×2 (14:24→21:08)
--- NOTE | 2018-05-02 14:24 | NUR ---
Pt temp down to 101.3 at this time.
[2018-05-02] MEDS: diphenhydrAMINE 25 MG TAB (BENADRYL) PO PRN (17:45)
[2018-05-02] MEDS: PRAMIPEXOLE 0.5 MG TAB (MIRAPEX) PO SCH (17:46)
[2018-05-02] MEDS: GABAPENTIN 100 MG (NEURONTIN) CAP PO SCH (21:08)
[2018-05-02] MEDS: DOXEPIN 10 MG (SINEquan) CAP PO SCH (21:09)
[2018-05-02] MEDS: MELATONIN 3 MG TABLET PO SCH (21:09)
[2018-05-02] MEDS: fentaNYL INJECTION 100 MCG/2 ML AMP IV PRN (21:09)
[2018-05-02] MEDS ORDERED: KETOROLAC 30 MG/ML VIAL IV ONE (23:00)
[2018-05-03] VITALS (24 sets, daily range): BP systolic 86–134; BP diastolic 43–104
[2018-05-03] MEDS: RT-ALBUTEROL/IPRATROPIUM 3 ML (DUONEB) VIAL INH SCH ×6 (01:39→23:43)
[2018-05-03] MEDS ORDERED: CEFEPIME 2 GM (MAXIPIME) VIAL ONE ×2 (01:52→09:19)
[2018-05-03] MEDS ORDERED: WATER (STERILE) FOR INJECTION 20 ML ONE ×2 (01:53→09:19)
[2018-05-03] MEDS: oxyCODONE/APAP 5/325MG (PERCOCET 5) TABLET PO PRN ×2 (02:00→17:43)
[2018-05-03] MEDS: diphenhydrAMINE 25 MG TAB (BENADRYL) PO PRN (02:00)
[2018-05-03] MEDS: fentaNYL INJECTION 100 MCG/2 ML AMP IV PRN ×4 (02:00→21:47)
[2018-05-03 04:14] LABS: BASOPHILS % (AUTO) 0 % (0-10); EOSINOPHILS # (AUTO) 0.1 10^3/uL (0.0-0.3); EOSINOPHILS % (AUTO) 1 % (0-10); HEMATOCRIT 29 % (35-52); HEMOGLOBIN 9.5 G/DL (11.5-16.0); LYMPHOCYTES # (AUTO) 0.9 X 10^3 (1.0-4.0); LYMPHOCYTES % (AUTO) 10 % (12-44); MEAN CORPUSCULAR HEMOGLOBIN 30 PG (25-34); MEAN CORPUSCULAR HGB CONC 32 G/DL (32-36); MEAN CORPUSCULAR VOLUME 94 FL (80-99); MEAN PLATELET VOLUME 9.4 FL (7.4-10.4); MONOCYTES # (AUTO) 1.1 X 10^3 (0.0-1.0); MONOCYTES % (AUTO) 13 % (0-12); NEUTROPHILS # (AUTO) 6.9 X 10^3 (1.8-7.8); NEUTROPHILS % (AUTO) 76 % (42-75); PLATELET COUNT 203 10^3/uL (130-400); RED CELL DISTRIBUTION WIDTH 13.8 % (10.0-14.5)
[2018-05-03 04:39] LABS: BUN/CREATININE RATIO 20; CALCIUM 8.7 MG/DL (8.5-10.1); CARBON DIOXIDE 24 MMOL/L (21-32); CHLORIDE 107 MMOL/L (98-107); CREATININE SERUM 0.75 MG/DL (0.60-1.30); GFR ESTIMATED > 60; GLUCOSE 143 MG/DL (70-105); MAGNESIUM 1.9 MG/DL (1.8-2.4); PHOSPHORUS 3.9 MG/DL (2.3-4.7); SODIUM 136 MMOL/L (135-145)
--- NOTE | 2018-05-03 05:07 | Pulmonary Progress Note ---
Subjective Time Seen by a Provider: 05:18 Subjective/Events-last exam Pt has been hypotensive. Sepsis Event Evaluation Height, Weight, BMI Height: 5'5.00" Weight: 220lbs. 0.0oz. 99.517617xi; 36.6 BMI Method:Estimated Focused Exam Lactate Level 05/02/18 10:34: Lactic Acid Level 1.85 05/02/18 12:25: Lactic Acid Level 0.77 Exam Exam Vital Signs Date Time Temp Pulse Resp B/P (MAP) Pulse Ox O2 Delivery O2 Flow Rate FiO2 05/03/18 04:00 60 19 86/45 (59) 95 Vapotherm 30.00 25.00 05/03/18 04:00 95 Vapotherm 25.00 30 05/03/18 03:00 60 24 86/43 (57) 94 Vapotherm 30.00 25.00 05/03/18 02:00 61 30 114/58 (76) 96 Vapotherm 30.00 25.00 05/03/18 01:39 96 Vapotherm 25.00 30 05/03/18 01:00 64 05/03/18 01:00 63 31 103/61 (75) 95 Vapotherm 30.00 25.00 05/03/18 00:00 79 28 114/51 (72) 92 Vapotherm 30.00 25.00 05/03/18 00:00 95 Vapotherm 25.00 30 05/02/18 23:00 94 21 111/52 (71) 92 Vapotherm 30.00 25.00 05/02/18 22:50 Vapotherm 30.00 25.00 05/02/18 22:29 94 Vapotherm 30.00 30 05/02/18 22:00 101 22 152/71 (98) 93 Vapotherm 30.00 30.00 05/02/18 21:00 100 18 118/89 (99) 94 Vapotherm 30.00 30.00 05/02/18 20:00 97 Vapotherm 30.00 30 05/02/18 20:00 86 17 128/65 (86) 95 Vapotherm 30.00 30.00 05/02/18 19:00 71 16 101/48 (65) 99 Vapotherm 30.00 30.00 05/02/18 19:00 72 05/02/18 18:45 92 Vapotherm 30.00 30 05/02/18 18:00 72 13 108/50 (69) 97 Vapotherm 30.00 30.00 05/02/18 17:00 72 22 102/71 (81) 97 Vapotherm 30.00 30.00 05/02/18 16:00 73 10 77/49 (58) 96 Vapotherm 30.00 30.00 05/02/18 15:47 97 Vapotherm 3.00 40 05/02/18 15:08 96 Vapotherm 40.00 35 05/02/18 15:00 79 16 85/76 (79) 97 Vapotherm 30.00 30.00 05/02/18 14:24 101.3 05/02/18 14:00 87 26 94/46 (62) 96 Vapotherm 30.00 30.00 05/02/18 13:10 104.0 05/02/18 13:05 87 05/02/18 13:00 87 27 124/58 (80) 96 Vapotherm 30.00 30.00 05/02/18 12:30 103.2 05/02/18 12:00 97 25 141/97 (112) 98 Vapotherm 30.00 30.00 05/02/18 12:00 97 Vapotherm 3.00 40 05/02/18 11:30 97 25 165/130 (142) 100 Vapotherm 30.00 30.00 05/02/18 11:30 Vapotherm 40.00 40 05/02/18 11:15 102.5 05/02/18 10:53 89 Nasal Cannula 3.00 05/02/18 10:39 90 Nasal Cannula 3.00 05/02/18 08:00 93 Nasal Cannula 3.00 05/02/18 07:57 96.8 60 20 96/52 (67) 93 Nasal Cannula 3.00 05/02/18 07:30 92 Nasal Cannula 3.00 05/02/18 07:00 60 I & O 05/03/18 07:00 Intake Total 900 ml Output Total 1100 ml Balance -200 ml Height & Weight Height: 5'5.00" Weight: 220lbs. 0.0oz. 99.226859sx; 36.6 BMI Method:Estimated General Appearance: Moderate Distress Neck: Supple Respiratory: Accessory Muscle Use, Crackles, Decreased Breath Sounds (coarse), Respiratory Distress, Stridor (with cough) Cardiovascular: Regular Rate, Rhythm Capillary Refill: Less Than 3 Seconds Gastrointestinal: normal bowel sounds, non tender, soft Extremity: Non Tender, No Calf Tenderness, No Pedal Edema Neurologic/Psychiatric: Alert, Oriented x3 Skin: Warm/Dry, Cool, Pallor Lymphatic: No Adenopathy Results Lab Laboratory Tests 05/02/18 04:00 05/02/18 11:25 05/03/18 03:30 Assessment/Plan Assessment/Plan Acute respiratory failure -PT is on Vapotherm Severe Sepsis with hypotension r/o shock -Start severe sepsis protocol -Central line D/C'd -- Tip sent for culture -Mckeon cultures including 1 from central line -Vanco/Cefepime -Pt has PICC line now UTI with sepsis -Cont Abx S/p C5-C6 fusion 04/22 Afib - -Amio, digoxin, cardizem -Cardiology following Hx of laryngal spasms -Ativan PRN HX of cardiac arrest 2010 Last EF 50-55% CAD Obesity THERESA COOK DO May 03, 2018 05:07
[2018-05-03] MEDS ORDERED: NS IV 1000 ML 2,993.7 ML IV ONE (05:15)
[2018-05-03] MEDS: inSUlin ASPART (NovoLOG) 1 UNIT/0.01 ML (CHARGE PER UNIT) SQ SCH ×4 (06:39→21:46)
[2018-05-03] MEDS: HYDROCORTISONE 100 MG/2 ML (Solu-CORTEF) VIAL IV SCH ×3 (06:39→21:46)
[2018-05-03] MEDS: DILTIAZEM 240 MG (CARDIZEM CD) CAP PO SCH (08:36)
[2018-05-03] MEDS: MAGNESIUM OXIDE (MAG-OX)400 MG TAB PO SCH ×2 (08:36→21:47)
[2018-05-03] MEDS: busPIRone 5 MG (BUSPAR) TAB PO SCH ×3 (08:36→21:46)
[2018-05-03] MEDS: FAMOTIDINE 20MG/2ML IV (PEPCID) IVP SCH ×2 (08:36→21:47)
[2018-05-03] MEDS: inSUlin DETERMIR 1 UNIT/0.01 ML (LEVEMIR) CHARGE PER UNIT SQ SCH (08:37)
[2018-05-03] MEDS: MULTIVIT W/MINERALS TAB (THERAGRAN M) PO SCH (08:37)
[2018-05-03] MEDS: APIXABAN 5 MG (ELIQUIS) TABLET PO SCH ×2 (08:37→21:47)
[2018-05-03] MEDS: SENNOSIDES 8.6 MG (SENOKOT) TAB PO SCH ×2 (08:37→21:47)
[2018-05-03] MEDS: HYDROcodone/APAP 5 MG/325 MG (LORTAB) TAB PO PRN (08:38)
--- NOTE | 2018-05-03 08:54 | Diagnostic Imaging Report ---
INDICATION: Left basilar infiltrate and left effusion. Comparison is made with previous study from 05/01/2018. FINDINGS: Right lung is clear. Implantable cardiac defibrillator device is present and cardiac size is stable. There is some persistent mild blunting of the left costophrenic angle not significantly changed. There is no pneumothorax. Previous right internal jugular line has been removed. There are prior operative changes of anterior cervical fusion. IMPRESSION: 1. Minimal persistent blunting of left costophrenic angle which could reflect a small region of atelectasis or effusion. The right lung appears clear. Heart size stable. Central pulmonary vascularity appears appropriate. Dictated by: Dictated on workstation # [id number]
[2018-05-03] MEDS: meTOprolol TARTRATE 50 MG (LOPRESSOR) TAB PO SCH ×2 (09:13→21:48)
[2018-05-03] MEDS: CEFEPIME INJECTION 2,000 MG in WATER (STERILE) FOR INJECTION 20 ML IV SCH ×2 (09:21→21:46)
[2018-05-03] MEDS: GABAPENTIN 300 MG (NEURONTIN) CAP PO SCH ×2 (09:24→21:47)
[2018-05-03] MEDS ORDERED: NOREPINEPHRINE 4 MG in NS (IVPB) 250 ML IV SCH (10:45)
[2018-05-03] MEDS: NS IV 1000 ML 1,000 ML IV SCH ×3 (11:58→23:31)
--- NOTE | 2018-05-03 12:28 | Progress Note-Hospitalist ---
Subjective HPI/CC On Admission Date Seen by Provider: May 03, 2018 Time Seen by Provider: 11:00 Subjective/Events-last exam Patient stable but had an episode of hypotension this morning and required 3 liters of IVF and doing well without pressors Pain is controlled Checked meds and labs Son and at bedside Fever resolved Focused Exam Lactate Level 05/02/18 10:34: Lactic Acid Level 1.85 05/02/18 12:25: Lactic Acid Level 0.77 05/03/18 05:50: Lactic Acid Level 0.67 Objective Exam Vital Signs Vital Signs Date Time Temp Pulse Resp B/P (MAP) Pulse Ox O2 Delivery O2 Flow Rate FiO2 05/03/18 15:00 80 16 103/53 (70) 95 Vapotherm 30.00 25.00 05/03/18 14:46 30 05/03/18 07:00 96.6 Capillary Refill : Less Than 3 SecondsLess Than 3 Seconds General Appearance: Moderate Distress Neck: Supple Respiratory: Accessory Muscle Use, Crackles, Decreased Breath Sounds (coarse), Respiratory Distress, Stridor (with cough) Cardiovascular: Regular Rate, Rhythm Gastrointestinal: Normal Bowel Sounds, Non Tender, Soft Rectal: Deferred Back: No CVA Tenderness Extremity: Non Tender, No Calf Tenderness, No Pedal Edema Neurologic/Psychiatric: Alert, Oriented x3 Skin: Warm/Dry, Cool, Pallor Lymphatic: No Adenopathy Results/Procedures Lab Laboratory Tests 05/03/18 03:30 Patient resulted labs reviewed. Assessment/Plan Assessment and Plan Assess & Plan/Chief Complaint Assessment: Acute respiratory failure on Vapotherm s/p acute onset of fever/rigors/worsening hypoxia now resolved S/p C5-C6 fusion 04/22 Afib - Hx of laryngal spasms HX of cardiac arrest 2010 Last EF 50-55% CAD Obesity Plan: ICU Vapotherm Critical Care Critically Ill Patient Diagnosis/Problems Diagnosis/Problems (1) Respiratory insufficiency Status: Acute (2) Hypotension Status: Resolved Qualifiers: Hypotension type: unspecified hypotension type Qualified Codes: I95.9 - Hypotension, unspecified (3) Stenosis, cervical spine Status: Acute Clinical Quality Measures DVT/VTE Risk/Contraindication: Risk Factor Score Per Nursin RFS Level Per Nursing on Admit: 4+=Very High EDMUNDO CROWELL DO May 03, 2018 12:28
[2018-05-03] MEDS: VANCOMYCIN 1500 MG/NS 500 ML IVPB IV SCH ×2 (13:51)
--- NOTE | 2018-05-03 15:19 | Progress Note-Cardiology ---
Cardiology SOAP Progress Note Subjective: Notes gen malaise No cp or palp or shortness of breath at rest Objective: I&O/Vital Signs 05/03/18 05/03/18 05/03/18 05/03/18 04:00 04:00 04:00 05:00 Temp 97.1 Pulse 60 60 Resp 19 20 B/P (MAP) 86/45 (59) 87/48 (61) Pulse Ox 95 95 94 O2 Delivery Vapotherm Vapotherm Vapotherm O2 Flow Rate 25.00 30.00 30.00 25.00 25.00 FiO2 30 05/03/18 05/03/18 05/03/18 05/03/18 06:00 06:00 06:42 07:00 Temp 96.5 96.6 Pulse 60 63 Resp 16 23 B/P (MAP) 98/47 (64) 124/57 (79) Pulse Ox 94 97 98 O2 Delivery Vapotherm Vapotherm Vapotherm O2 Flow Rate 30.00 20.00 30.00 25.00 25.00 FiO2 30 05/03/18 05/03/18 05/03/18 05/03/18 07:00 08:00 08:07 09:00 Pulse 62 60 70 Resp 18 15 B/P (MAP) 120/50 (73) 106/47 (66) Pulse Ox 96 98 98 O2 Delivery Vapotherm Vapotherm Vapotherm O2 Flow Rate 30.00 25.00 30.00 25.00 25.00 FiO2 30 05/03/18 05/03/18 05/03/18 05/03/18 10:00 10:46 11:00 12:00 Pulse 68 73 76 Resp 13 24 25 B/P (MAP) 100/45 (63) 113/54 (73) 116/55 (75) Pulse Ox 93 92 98 94 O2 Delivery Vapotherm Vapotherm Vapotherm Vapotherm O2 Flow Rate 30.00 15.00 30.00 30.00 25.00 25.00 25.00 FiO2 30 05/03/18 05/03/18 05/03/18 05/03/18 12:05 13:00 13:00 14:00 Pulse 75 70 70 Resp 15 31 B/P (MAP) 134/57 (82) 106/51 (69) Pulse Ox 98 96 94 O2 Delivery Vapotherm Vapotherm Vapotherm O2 Flow Rate 25.00 30.00 30.00 25.00 25.00 FiO2 30 05/03/18 05/03/18 14:46 15:00 Pulse 80 Resp 16 B/P (MAP) 103/53 (70) Pulse Ox 95 95 O2 Delivery Vapotherm Vapotherm O2 Flow Rate 15.00 30.00 25.00 FiO2 30 05/03/18 00:00 Intake Total 850 ml Output Total 950 ml Balance -100 ml Weight (Pounds): 220 Weight (Ounces): 0.0 Weight (Calculated Kilograms): 99.228827 Constitutional: AAO x 3 Respiratory: chest is bilaterally symmetric, rhonchi (scattered), other ( diminished lower lobes bilat with poor inspiratory effort) Cardiovascular: regular rate-rhythm, S1 and S2, systolic murmur (soft WOLF at card base) Gastrointestional: soft, audible bowel sounds Extremities: No significant edema Neurologic/Psychiatric: grossly intact Skin: No rash, No ulcerations Results/Procedures: Labs Laboratory Tests 05/02/18 17:38: Glucometer 279H 05/02/18 20:54: Glucometer 168H 05/03/18 03:30: White Blood Count 9.0, Red Blood Count 3.12L, Hemoglobin 9.5L, Hematocrit 29L, Mean Corpuscular Volume 94, Mean Corpuscular Hemoglobin 30, Mean Corpuscular Hemoglobin Concent 32, Red Cell Distribution Width 13.8, Platelet Count 203, Mean Platelet Volume 9.4, Neutrophils (%) (Auto) 76H, Lymphocytes (%) (Auto) 10L , Monocytes (%) (Auto) 13H, Eosinophils (%) (Auto) 1, Basophils (%) (Auto) 0, Neutrophils # (Auto) 6.9, Lymphocytes # (Auto) 0.9L, Monocytes # (Auto) 1.1H, Eosinophils # (Auto) 0.1, Basophils # (Auto) 0.0, Sodium Level 136, Potassium Level 4.0, Chloride Level 107, Carbon Dioxide Level 24, Anion Gap 5, Blood Urea Nitrogen 15, Creatinine 0.75, Estimat Glomerular Filtration Rate > 60, BUN/ Creatinine Ratio 20, Glucose Level 143H, Calcium Level 8.7, Phosphorus Level 3.9 , Magnesium Level 1.9, B-Type Natriuretic Peptide 120.7H 05/03/18 05:50: Lactic Acid Level 0.67 05/03/18 12:01: Glucometer 227H Microbiology 05/02/18 Catheter Tip Culture - Preliminary, Resulted No growth 05/02/18 Influenza Types A,B Antigen (YOLIE) - Final, Complete 05/02/18 Urine Culture - Final, Complete NO GROWTH Laboratory Tests 05/02/18 04:00 05/02/18 11:25 05/03/18 03:30 A/P: Assessment: Sepsis due to UTI / pneumonia PAF with RVR associated with hypotension - converted to NSR on 04-24-18 Eliquis for stroke prophylaxis S/p spinal fusion surgery and post-op resp failure requiring intubation and mech vent- extubated Echo of 04/23/18: mod concentric LVH, LVEF 65-70%, mild left atrial enlargement, PASP 30-35 mmHg Chronic migraine headaches. Chronic body pains and fibromyalgia. H/o labile hypertension and postural hypotension History of perioperative bradycardia (asystole) and tachycardia (ventricular fibrillation). 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 MPI of Nov 2017 showed no evidence of significant myocardial ischemia or infarction. LVEF 78% Obesity with a body mass index of approximately 36 The patient has been intolerant to statin therapy on account of chronic pain syndrome. 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 Dr Saleem following and has diagnosed restrictive lung disease Bilateral intermittent leg swelling, chornic. Venous insuff study of 02/15/16 did not show DVT or reflux in the deep venous system or valvular insuff of greater or small saphenous system or AASV Less than 40% DANIELLE stenosis, 40-59% LICA stenosis on carotid u/s of 02/03/16 Plan: * Has taken a clinical turn for the worse over the course of last 48 hours * Continue current management of sepsis and resp failure * Continue current regimen * Monitor labs closely ULI YOO MD FACP [facility] CCDS May 03, 2018 15:19
[2018-05-03] MEDS: PRAMIPEXOLE 0.5 MG TAB (MIRAPEX) PO SCH (17:43)
[2018-05-03] MEDS: GABAPENTIN 100 MG (NEURONTIN) CAP PO SCH (21:47)
[2018-05-03] MEDS: MELATONIN 3 MG TABLET PO SCH (21:47)
[2018-05-03] MEDS: DOXEPIN 10 MG (SINEquan) CAP PO SCH (21:47)
[2018-05-03] MEDS: LORazepam INJ 2 MG/ML (ATIVAN) VIAL IV PRN (22:01)
[2018-05-03] MEDS: ACETAMINOPHEN 325 MG TABLET PO PRN (22:01)
[2018-05-04] VITALS (22 sets, daily range): BP systolic 93–162; BP diastolic 52–102
[2018-05-04 01:14] LABS: ABG BASE EXCESS -3.5 MMOL/L (-2.5-2.5); ABG OXYGEN SATURATION 91 % (94-100); ABG PCO2 32 MMHG (35-45); ABG PH 7.42 (7.37-7.43); ABG PO2 54 MMHG (79-93); ABG TCO2 21.3 MMOL/L (21.0-31.0)
[2018-05-04 01:17] LABS: ALLENS TEST POSITIVE; PATIENT TEMP 97.8; VENTILATOR YES
[2018-05-04 04:38] LABS: BASOPHILS % (AUTO) 0 % (0-10); EOSINOPHILS % (AUTO) 0 % (0-10); HEMATOCRIT 31 % (35-52); LYMPHOCYTES # (AUTO) 0.5 X 10^3 (1.0-4.0); LYMPHOCYTES % (AUTO) 3 % (12-44); MEAN CORPUSCULAR HEMOGLOBIN 30 PG (25-34); MEAN CORPUSCULAR HGB CONC 32 G/DL (32-36); MEAN CORPUSCULAR VOLUME 93 FL (80-99); MEAN PLATELET VOLUME 9.2 FL (7.4-10.4); MONOCYTES # (AUTO) 0.8 X 10^3 (0.0-1.0); MONOCYTES % (AUTO) 6 % (0-12); NEUTROPHILS # (AUTO) 12.4 X 10^3 (1.8-7.8); NEUTROPHILS % (AUTO) 91 % (42-75); PLATELET COUNT 258 10^3/uL (130-400); RED CELL DISTRIBUTION WIDTH 13.8 % (10.0-14.5); WHITE BLOOD COUNT 13.7 10^3/uL (4.3-11.0)
[2018-05-04 05:04] LABS: BUN/CREATININE RATIO 19; CALCIUM 8.9 MG/DL (8.5-10.1); CARBON DIOXIDE 21 MMOL/L (21-32); CHLORIDE 109 MMOL/L (98-107); CREATININE SERUM 0.79 MG/DL (0.60-1.30); GFR ESTIMATED > 60; GLUCOSE 348 MG/DL (70-105); MAGNESIUM 1.9 MG/DL (1.8-2.4); PHOSPHORUS 2.1 MG/DL (2.3-4.7); POTASSIUM 4.2 MMOL/L (3.6-5.0); SODIUM 137 MMOL/L (135-145)
--- NOTE | 2018-05-04 05:41 | Pulmonary Progress Note ---
Subjective Time Seen by a Provider: 05:46 Subjective/Events-last exam Pt became very SOB last night. IVF are now Hep locked. Sepsis Event Evaluation Height, Weight, BMI Height: 5'5.00" Weight: 220lbs. 0.0oz. 99.848913li; 36.6 BMI Method:Estimated Focused Exam Lactate Level 05/02/18 10:34: Lactic Acid Level 1.85 05/02/18 12:25: Lactic Acid Level 0.77 05/03/18 05:50: Lactic Acid Level 0.67 Exam Exam Vital Signs Date Time Temp Pulse Resp B/P (MAP) Pulse Ox O2 Delivery O2 Flow Rate FiO2 05/04/18 05:00 71 25 119/57 (77) 100 Vapotherm 50.00 40.00 05/04/18 04:00 85 20 121/83 (96) 100 Vapotherm 50.00 40.00 05/04/18 03:00 71 24 101/53 (69) 97 Vapotherm 50.00 40.00 05/04/18 02:00 73 26 129/91 (104) 93 Vapotherm 50.00 40.00 05/04/18 01:50 Vapotherm 50.00 40.00 05/04/18 01:00 75 29 119/59 (79) 95 Vapotherm 30.00 25.00 05/04/18 01:00 75 05/04/18 00:00 80 23 118/57 (77) 93 Vapotherm 30.00 25.00 05/04/18 00:00 95 Vapotherm 10.00 30 05/03/18 23:46 90 Vapotherm 10.00 30 05/03/18 23:00 102 27 113/61 (78) 91 Vapotherm 30.00 25.00 05/03/18 22:00 103 20 116/73 (87) 90 Vapotherm 30.00 25.00 05/03/18 21:00 73 23 110/63 (79) 94 Vapotherm 30.00 25.00 05/03/18 20:00 95 Vapotherm 10.00 30 05/03/18 20:00 82 20 112/53 (72) 95 Vapotherm 30.00 25.00 05/03/18 19:00 80 05/03/18 19:00 75 14 127/61 (83) 99 Vapotherm 30.00 25.00 05/03/18 18:57 95 Vapotherm 10.00 30 05/03/18 18:06 85 35 126/104 (111) 81 Vapotherm 30.00 25.00 05/03/18 17:00 77 14 128/50 (76) 96 Vapotherm 30.00 25.00 05/03/18 16:00 98 Vapotherm 25.00 30 05/03/18 16:00 73 29 103/54 (70) 97 Vapotherm 30.00 25.00 05/03/18 15:00 80 16 103/53 (70) 95 Vapotherm 30.00 25.00 05/03/18 14:46 95 Vapotherm 15.00 30 05/03/18 14:00 70 31 106/51 (69) 94 Vapotherm 30.00 25.00 05/03/18 13:00 70 05/03/18 13:00 75 15 134/57 (82) 96 Vapotherm 30.00 25.00 05/03/18 12:05 98 Vapotherm 25.00 30 05/03/18 12:00 76 25 116/55 (75) 94 Vapotherm 30.00 25.00 05/03/18 11:00 73 24 113/54 (73) 98 Vapotherm 30.00 25.00 05/03/18 10:46 92 Vapotherm 15.00 30 05/03/18 10:00 68 13 100/45 (63) 93 Vapotherm 30.00 25.00 05/03/18 09:00 70 15 106/47 (66) 98 Vapotherm 30.00 25.00 05/03/18 08:07 98 Vapotherm 25.00 30 05/03/18 08:00 60 18 120/50 (73) 96 Vapotherm 30.00 25.00 05/03/18 07:00 62 05/03/18 07:00 96.6 63 23 124/57 (79) 98 Vapotherm 30.00 25.00 05/03/18 06:42 97 Vapotherm 20.00 30 05/03/18 06:00 96.5 05/03/18 06:00 60 16 98/47 (64) 94 Vapotherm 30.00 25.00 I & O 05/04/18 07:00 Intake Total 4563.7 ml Output Total 1900 ml Balance 2663.7 ml Height & Weight Height: 5'5.00" Weight: 220lbs. 0.0oz. 99.493356pz; 36.6 BMI Method:Estimated General Appearance: Moderate Distress Neck: Supple Respiratory: Accessory Muscle Use, Crackles, Decreased Breath Sounds (coarse), Respiratory Distress, Stridor (with cough) Cardiovascular: Regular Rate, Rhythm Capillary Refill: Less Than 3 Seconds Gastrointestinal: normal bowel sounds, non tender, soft Extremity: Non Tender, No Calf Tenderness, No Pedal Edema Neurologic/Psychiatric: Alert, Oriented x3 Skin: Warm/Dry, Cool, Pallor Lymphatic: No Adenopathy Results Lab Laboratory Tests 05/02/18 11:25 05/03/18 03:30 05/04/18 04:28 Assessment/Plan Assessment/Plan Acute respiratory failure -PT is on Vapotherm Severe Sepsis with hypotension r/o shock -Give lasix 40mg IV X 1 -Start severe sepsis protocol -Central line D/C'd -- Tip sent for culture -Mckeon cultures including 1 from central line -Vanco/Cefepime -Pt has PICC line now -Pt's IVF are now Hep locked - secondary to respiratory distress last night UTI with sepsis -Cont Abx S/p C5-C6 fusion 04/22 Afib - -Amio, digoxin, cardizem -Cardiology following Hx of laryngal spasms -Ativan PRN HX of cardiac arrest 2010 Last EF 50-55% CAD Obesity THERESA COOK DO May 04, 2018 05:41
[2018-05-04] MEDS ORDERED: FUROSEMIDE 40 MG/4 ML INJ (LASIX) IVP ONE (05:45)
[2018-05-04] MEDS ORDERED: SODIUM PHOSPHATE INJ 30 MM in NS (IVPB) 250 ML IV ONE (05:45)
--- NOTE | 2018-05-04 05:59 | Diagnostic Imaging Report ---
INDICATION: Followup left-sided pneumonia. COMPARISON: 05/03/2018 FINDINGS: Single frontal radiographic view of the chest was obtained and demonstrates persistent blunting of the left lateral costophrenic angle with area of consolidative opacity within the lateral left lower lung field. There is a separate similar appearing consolidative opacity within the left upper lung, which is partially obscured by the indwelling AICD. This appears to be new when compared to 04/27/2018. Right lung is relatively clear. Cardiac silhouette and pulmonary vasculature stable. Bony structures show no new acute abnormalities. IMPRESSION: 1. Persistent areas of alveolar infiltrate in the left lung. Continued followup is recommended. 2. Probable small left basilar effusion. Dictated by: Dictated on workstation # [id number]
[2018-05-04] MEDS: HYDROCORTISONE 100 MG/2 ML (Solu-CORTEF) VIAL IV SCH ×3 (07:08→20:50)
[2018-05-04] MEDS: POTASSIUM CL 10MEQ/50ML IVPB 50 ML IV SCH ×5 (07:08→09:34)
[2018-05-04] MEDS: inSUlin ASPART (NovoLOG) 1 UNIT/0.01 ML (CHARGE PER UNIT) SQ SCH ×4 (07:09→20:48)
[2018-05-04] MEDS: MAGNESIUM 1 GM/100 ML IVPB 100 ML IV SCH (07:09)
[2018-05-04] MEDS: KCL 20 MEQ TAB (K-DUR) PO SCH (07:09)
[2018-05-04] MEDS: RT-ALBUTEROL/IPRATROPIUM 3 ML (DUONEB) VIAL INH SCH ×5 (07:18→21:15)
[2018-05-04] MEDS: FAMOTIDINE 20MG/2ML IV (PEPCID) IVP SCH ×2 (09:31→20:48)
[2018-05-04] MEDS: CEFEPIME INJECTION 2,000 MG in WATER (STERILE) FOR INJECTION 20 ML IV SCH ×2 (09:31→20:48)
[2018-05-04] MEDS: meTOprolol TARTRATE 50 MG (LOPRESSOR) TAB PO SCH ×2 (09:31→20:49)
[2018-05-04] MEDS: MULTIVIT W/MINERALS TAB (THERAGRAN M) PO SCH (09:32)
[2018-05-04] MEDS: busPIRone 5 MG (BUSPAR) TAB PO SCH ×3 (09:32→20:49)
[2018-05-04] MEDS: APIXABAN 5 MG (ELIQUIS) TABLET PO SCH ×2 (09:32→20:49)
[2018-05-04] MEDS: PANTOPRAZOLE 40 MG (PROTONIX) TAB PO SCH (09:32)
[2018-05-04] MEDS: GABAPENTIN 300 MG (NEURONTIN) CAP PO SCH ×2 (09:32→20:49)
[2018-05-04] MEDS: DILTIAZEM 240 MG (CARDIZEM CD) CAP PO SCH (09:32)
[2018-05-04] MEDS: oxyCODONE/APAP 5/325MG (PERCOCET 5) TABLET PO PRN ×2 (09:35→16:07)
[2018-05-04] MEDS: SENNOSIDES 8.6 MG (SENOKOT) TAB PO SCH ×2 (09:38→20:50)
[2018-05-04] MEDS: MAGNESIUM OXIDE (MAG-OX)400 MG TAB PO SCH ×2 (09:38→17:02)
[2018-05-04] MEDS: inSUlin DETERMIR 1 UNIT/0.01 ML (LEVEMIR) CHARGE PER UNIT SQ SCH (09:39)
--- NOTE | 2018-05-04 12:55 | Progress Note-Cardiology ---
Cardiology SOAP Progress Note Subjective: Gen malaise and tiredness. No cp or palp or syncope Gets short of breath with mild activity Objective: I&O/Vital Signs 05/04/18 05/04/18 05/04/18 05/04/18 01:00 01:00 01:50 02:00 Pulse 75 75 73 Resp 29 26 B/P (MAP) 119/59 (79) 129/91 (104) Pulse Ox 95 93 O2 Delivery Vapotherm Vapotherm Vapotherm O2 Flow Rate 30.00 50.00 50.00 25.00 40.00 40.00 05/04/18 05/04/18 05/04/18 05/04/18 03:00 04:00 04:00 04:00 Temp 97.7 Pulse 71 85 Resp 24 20 B/P (MAP) 101/53 (69) 121/83 (96) Pulse Ox 97 100 95 O2 Delivery Vapotherm Vapotherm Vapotherm O2 Flow Rate 50.00 50.00 10.00 40.00 40.00 FiO2 30 05/04/18 05/04/18 05/04/18 05/04/18 05:00 06:00 07:00 07:00 Pulse 71 81 80 80 Resp 25 22 29 B/P (MAP) 119/57 (77) 118/88 (98) 127/102 (110) Pulse Ox 100 100 100 O2 Delivery Vapotherm Vapotherm Vapotherm O2 Flow Rate 50.00 50.00 50.00 40.00 40.00 40.00 05/04/18 05/04/18 05/04/18 05/04/18 07:18 08:00 08:00 09:00 Pulse 80 83 Resp 23 15 B/P (MAP) 162/63 (96) 155/84 (107) Pulse Ox 100 99 95 100 O2 Delivery Vapotherm Vapotherm Vapotherm Vapotherm O2 Flow Rate 40.00 50.00 30.00 50.00 40.00 40.00 FiO2 50 50 05/04/18 05/04/18 05/04/18 05/04/18 10:00 10:41 11:00 12:00 Pulse 86 73 65 Resp 18 23 32 B/P (MAP) 134/74 (94) 127/54 (78) 122/58 (79) Pulse Ox 100 99 99 98 O2 Delivery Vapotherm Vapotherm Vapotherm Vapotherm O2 Flow Rate 50.00 25.00 50.00 50.00 40.00 40.00 40.00 FiO2 45 05/04/18 12:00 Pulse Ox 95 O2 Delivery Vapotherm O2 Flow Rate 25.00 FiO2 45 05/04/18 00:00 Intake Total 1500 ml Output Total 1700 ml Balance -200 ml Weight (Pounds): 220 Weight (Ounces): 0.0 Weight (Calculated Kilograms): 99.767876 Constitutional: AAO x 3 Respiratory: chest is bilaterally symmetric, rhonchi (scattered), other ( diminished lower lobes bilat with poor inspiratory effort) Cardiovascular: regular rate-rhythm, S1 and S2, systolic murmur (soft WOLF at card base) Gastrointestional: soft, audible bowel sounds Extremities: No clubbing, No cyanosis; significant edema (Has mod gen edema) Neurologic/Psychiatric: grossly intact Skin: No rash, No ulcerations Results/Procedures: Labs Laboratory Tests 05/03/18 16:48: Glucometer 277H 05/03/18 21:32: Glucometer 340H 05/04/18 01:05: Blood Gas Puncture Site LEFT RADIAL, Blood Gas Patient Temperature 97.8, Arterial Blood pH 7.42, Arterial Blood Partial Pressure CO2 32L, Arterial Blood Partial Pressure O2 54L, Arterial Blood HCO3 20L, Arterial Blood Total CO2 21.3 , Arterial Blood Oxygen Saturation 91L, Arterial Blood Base Excess -3.5L, Manjit Test POSITIVE, Blood Gas Ventilator Setting YES, Blood Gas Inspired Oxygen 10L, 30% VAPOTHERM 05/04/18 04:28: White Blood Count 13.7H, Red Blood Count 3.35L, Hemoglobin 10.0L, Hematocrit 31L , Mean Corpuscular Volume 93, Mean Corpuscular Hemoglobin 30, Mean Corpuscular Hemoglobin Concent 32, Red Cell Distribution Width 13.8, Platelet Count 258, Mean Platelet Volume 9.2, Neutrophils (%) (Auto) 91H, Lymphocytes (%) (Auto) 3L , Monocytes (%) (Auto) 6, Eosinophils (%) (Auto) 0, Basophils (%) (Auto) 0, Neutrophils # (Auto) 12.4H, Lymphocytes # (Auto) 0.5L, Monocytes # (Auto) 0.8, Eosinophils # (Auto) 0.0, Basophils # (Auto) 0.0, Sodium Level 137, Potassium Level 4.2, Chloride Level 109H, Carbon Dioxide Level 21, Anion Gap 7, Blood Urea Nitrogen 15, Creatinine 0.79, Estimat Glomerular Filtration Rate > 60, BUN/ Creatinine Ratio 19, Glucose Level 348H, Calcium Level 8.9, Phosphorus Level 2.1L, Magnesium Level 1.9 05/04/18 11:10: Glucometer 349H Microbiology 05/02/18 Catheter Tip Culture - Preliminary, Resulted No growth 05/02/18 Influenza Types A,B Antigen (YOLIE) - Final, Complete 05/02/18 Urine Culture - Final, Complete NO GROWTH Laboratory Tests 05/03/18 03:30 05/04/18 04:28 A/P: Assessment: Sepsis due to UTI / pneumonia PAF with RVR associated with hypotension - converted to NSR on 04-24-18 Eliquis for stroke prophylaxis S/p spinal fusion surgery and post-op resp failure requiring intubation and mech vent- extubated Echo of 04/23/18: mod concentric LVH, LVEF 65-70%, mild left atrial enlargement, PASP 30-35 mmHg Chronic migraine headaches. Chronic body pains and fibromyalgia. H/o labile hypertension and postural hypotension History of perioperative bradycardia (asystole) and tachycardia (ventricular fibrillation). 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 MPI of Nov 2017 showed no evidence of significant myocardial ischemia or infarction. LVEF 78% Obesity with a body mass index of approximately 36 The patient has been intolerant to statin therapy on account of chronic pain syndrome. 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 Dr Saleem following and has diagnosed restrictive lung disease Bilateral intermittent leg swelling, chornic. Venous insuff study of 02/15/16 did not show DVT or reflux in the deep venous system or valvular insuff of greater or small saphenous system or AASV Less than 40% DANIELLE stenosis, 40-59% LICA stenosis on carotid u/s of 02/03/16 Plan: * Complex management * Continue current management of sepsis and resp failure * Continue current regimen * Monitor labs closely ULI YOO MD FACP [facility] CCDS May 04, 2018 12:54
[2018-05-04] MEDS: VANCOMYCIN 1500 MG/NS 500 ML IVPB IV SCH ×2 (13:48)
--- NOTE | 2018-05-04 14:15 | Progress Note-Hospitalist ---
Subjective HPI/CC On Admission Date Seen by Provider: May 04, 2018 Time Seen by Provider: 11:30 Subjective/Events-last exam Patient doing much better Still on Vapotherm Youngest sister is at the bedside Denies any pain Hypotension resolved Lasix given for volume overload Swallowing is becoming difficult and that is a new thing Less short of breath Review of Systems General: Fatigue Focused Exam Lactate Level 05/02/18 10:34: Lactic Acid Level 1.85 05/02/18 12:25: Lactic Acid Level 0.77 05/03/18 05:50: Lactic Acid Level 0.67 Objective Exam Vital Signs Vital Signs Date Time Temp Pulse Resp B/P (MAP) Pulse Ox O2 Delivery O2 Flow Rate FiO2 05/04/18 20:00 61 26 110/70 (83) Vapotherm 40.00 25.00 05/04/18 17:00 97 05/04/18 16:37 99.4 05/04/18 16:00 40 Capillary Refill : Less Than 3 SecondsLess Than 3 Seconds General Appearance: No Apparent Distress, WD/WN, Chronically ill Neck: Supple Respiratory: Accessory Muscle Use, Crackles, Decreased Breath Sounds (coarse), Respiratory Distress, Stridor (with cough) Cardiovascular: Regular Rate, Rhythm Gastrointestinal: Normal Bowel Sounds, Non Tender, Soft Rectal: Deferred Back: No CVA Tenderness Extremity: Non Tender, No Calf Tenderness, No Pedal Edema Neurologic/Psychiatric: Alert, Oriented x3 Skin: Warm/Dry, Cool, Pallor Lymphatic: No Adenopathy Results/Procedures Lab Laboratory Tests 05/04/18 04:28 Patient resulted labs reviewed. Assessment/Plan Assessment and Plan Assess & Plan/Chief Complaint Assessment: Acute respiratory failure on Vapotherm s/p acute onset of fever/rigors/worsening hypoxia now resolved S/p C5-C6 fusion 04/22 Afib - Hx of laryngal spasms HX of cardiac arrest 2010 Last EF 50-55% CAD Obesity Plan: ICU Vapotherm Lasix Critical Care Critically Ill Patient Diagnosis/Problems Diagnosis/Problems (1) Respiratory insufficiency Status: Acute (2) Hypotension Status: Resolved Qualifiers: Hypotension type: unspecified hypotension type Qualified Codes: I95.9 - Hypotension, unspecified (3) Stenosis, cervical spine Status: Acute Clinical Quality Measures DVT/VTE Risk/Contraindication: Risk Factor Score Per Nursin RFS Level Per Nursing on Admit: 4+=Very High EDMUNDO CROWELL DO May 04, 2018 14:14
[2018-05-04] MEDS: PRAMIPEXOLE 0.5 MG TAB (MIRAPEX) PO SCH (17:02)
[2018-05-04] MEDS: GABAPENTIN 100 MG (NEURONTIN) CAP PO SCH (20:49)
[2018-05-04] MEDS: MELATONIN 3 MG TABLET PO SCH (20:49)
[2018-05-04] MEDS: DOXEPIN 10 MG (SINEquan) CAP PO SCH (20:49)
[2018-05-05] VITALS (14 sets, daily range): BP systolic 96–146; BP diastolic 56–98
[2018-05-05] MEDS: RT-ALBUTEROL/IPRATROPIUM 3 ML (DUONEB) VIAL INH SCH ×6 (02:23→22:57)
[2018-05-05 03:08] LABS: BASOPHILS % (AUTO) 0 % (0-10); EOSINOPHILS % (AUTO) 0 % (0-10); HEMATOCRIT 31 % (35-52); LYMPHOCYTES # (AUTO) 1.1 X 10^3 (1.0-4.0); LYMPHOCYTES % (AUTO) 7 % (12-44); MEAN CORPUSCULAR HEMOGLOBIN 30 PG (25-34); MEAN CORPUSCULAR HGB CONC 32 G/DL (32-36); MEAN CORPUSCULAR VOLUME 93 FL (80-99); MEAN PLATELET VOLUME 9.2 FL (7.4-10.4); MONOCYTES # (AUTO) 0.9 X 10^3 (0.0-1.0); MONOCYTES % (AUTO) 6 % (0-12); NEUTROPHILS # (AUTO) 14.6 X 10^3 (1.8-7.8); NEUTROPHILS % (AUTO) 88 % (42-75); PLATELET COUNT 261 10^3/uL (130-400); RED CELL DISTRIBUTION WIDTH 13.7 % (10.0-14.5); WHITE BLOOD COUNT 16.7 10^3/uL (4.3-11.0)
[2018-05-05 03:23] LABS: BUN/CREATININE RATIO 28; CALCIUM 8.9 MG/DL (8.5-10.1); CARBON DIOXIDE 23 MMOL/L (21-32); CHLORIDE 106 MMOL/L (98-107); CREATININE SERUM 0.68 MG/DL (0.60-1.30); GFR ESTIMATED > 60; GLUCOSE 133 MG/DL (70-105); PHOSPHORUS 2.7 MG/DL (2.3-4.7); POTASSIUM 3.9 MMOL/L (3.6-5.0); SODIUM 139 MMOL/L (135-145)
[2018-05-05] MEDS: POTASSIUM CL 10MEQ/50ML IVPB 50 ML IV SCH (04:17)
[2018-05-05] MEDS: inSUlin ASPART (NovoLOG) 1 UNIT/0.01 ML (CHARGE PER UNIT) SQ SCH ×4 (04:17→21:17)
[2018-05-05] MEDS: MAGNESIUM 1 GM/100 ML IVPB 100 ML IV SCH (04:17)
[2018-05-05] MEDS: KCL 20 MEQ TAB (K-DUR) PO SCH (04:17)
--- NOTE | 2018-05-05 05:36 | Pulmonary Progress Note ---
Subjective Time Seen by a Provider: 05:46 Subjective/Events-last exam Pt is having more confusion probably ICU psychosis. Sepsis Event Evaluation Height, Weight, BMI Height: 5'5.00" Weight: 220lbs. 0.0oz. [id number]; 36.6 BMI Method:Estimated Focused Exam Lactate Level 05/02/18 10:34: Lactic Acid Level 1.85 05/02/18 12:25: Lactic Acid Level 0.77 05/03/18 05:50: Lactic Acid Level 0.67 Exam Exam Vital Signs Date Time Temp Pulse Resp B/P (MAP) Pulse Ox O2 Delivery O2 Flow Rate FiO2 05/05/18 05:00 60 27 131/78 (95) 95 Vapotherm 30.00 10.00 05/05/18 04:00 95 Vapotherm 15.00 30 05/05/18 04:00 69 32 118/58 (78) 96 Vapotherm 30.00 10.00 05/05/18 04:00 98.5 05/05/18 03:00 60 16 119/67 (84) 96 Vapotherm 30.00 10.00 05/05/18 02:23 97 Vapotherm 15.00 35 05/05/18 02:00 60 25 96/75 (82) 98 Vapotherm 40.00 25.00 05/05/18 01:00 60 05/05/18 01:00 60 27 130/70 (90) 96 Vapotherm 40.00 25.00 05/05/18 00:00 60 18 138/93 (108) 98 Vapotherm 40.00 25.00 05/05/18 00:00 95 Vapotherm 15.00 30 05/04/18 23:00 61 20 98 Vapotherm 40.00 25.00 05/04/18 22:02 63 25 130/84 (99) Vapotherm 40.00 25.00 05/04/18 21:14 98 Vapotherm 20.00 40 05/04/18 21:00 68 27 Vapotherm 40.00 25.00 05/04/18 20:00 61 26 110/70 (83) Vapotherm 40.00 25.00 05/04/18 20:00 95 Vapotherm 20.00 40 05/04/18 20:00 98.0 05/04/18 19:00 60 26 110/52 (71) Vapotherm 40.00 25.00 05/04/18 19:00 60 05/04/18 18:00 73 31 94/68 (77) Vapotherm 40.00 25.00 05/04/18 17:00 63 24 129/68 (88) 97 Vapotherm 40.00 25.00 05/04/18 16:37 99.4 05/04/18 16:07 100.0 05/04/18 16:00 75 30 128/68 (88) 96 Vapotherm 40.00 25.00 05/04/18 16:00 95 Vapotherm 20.00 40 05/04/18 15:00 67 19 93/79 (84) 98 Vapotherm 40.00 25.00 05/04/18 14:30 99 Vapotherm 25.00 45 05/04/18 14:00 68 28 109/81 (90) 96 Vapotherm 50.00 40.00 05/04/18 13:00 63 05/04/18 13:00 65 20 110/74 (86) 100 Vapotherm 50.00 40.00 05/04/18 12:00 95 Vapotherm 25.00 45 05/04/18 12:00 65 32 122/58 (79) 98 Vapotherm 50.00 40.00 05/04/18 11:00 73 23 127/54 (78) 99 Vapotherm 50.00 40.00 05/04/18 10:41 99 Vapotherm 25.00 45 05/04/18 10:00 86 18 134/74 (94) 100 Vapotherm 50.00 40.00 05/04/18 09:00 83 15 155/84 (107) 100 Vapotherm 50.00 40.00 05/04/18 08:00 95 Vapotherm 30.00 50 05/04/18 08:00 80 23 162/63 (96) 99 Vapotherm 50.00 40.00 05/04/18 07:18 100 Vapotherm 40.00 50 05/04/18 07:00 80 05/04/18 07:00 80 29 127/102 (110) 100 Vapotherm 50.00 40.00 05/04/18 06:00 81 22 118/88 (98) 100 Vapotherm 50.00 40.00 I & O 05/05/18 07:00 Intake Total 2275 ml Output Total 3500 ml Balance -1225 ml Height & Weight Height: 5'5.00" Weight: 220lbs. 0.0oz. [id number]; 36.6 BMI Method:Estimated General Appearance: Moderate Distress Neck: Supple Respiratory: Accessory Muscle Use, Crackles, Decreased Breath Sounds (coarse), Respiratory Distress, Stridor (with cough) Cardiovascular: Regular Rate, Rhythm Capillary Refill: Less Than 3 Seconds Gastrointestinal: normal bowel sounds, non tender, soft Extremity: Non Tender, No Calf Tenderness, No Pedal Edema Neurologic/Psychiatric: Alert, Oriented x3 Skin: Warm/Dry, Cool, Pallor Lymphatic: No Adenopathy Results Lab Laboratory Tests 05/04/18 04:28 05/05/18 02:55 Assessment/Plan Assessment/Plan Acute respiratory failure -PT is on Vapotherm -Trial Pt to NC Sepsis -Central line D/C'd -- Tip sent for culture -Mckeon cultures including 1 from central line -Vanco/Cefepime - await cultures -Pt has PICC line now ICU psychosis -Monitor UTI with sepsis -Cont Abx S/p C5-C6 fusion 04/22 Afib - -Amio, digoxin, cardizem -Cardiology following Hx of laryngal spasms -Ativan PRN HX of cardiac arrest 2010 Last EF 50-55% CAD Obesity THERESA COOK DO May 05, 2018 05:36
[2018-05-05] MEDS: MULTIVIT W/MINERALS TAB (THERAGRAN M) PO SCH (06:45)
[2018-05-05] MEDS: HYDROCORTISONE 100 MG/2 ML (Solu-CORTEF) VIAL IV SCH ×3 (06:45→22:45)
--- NOTE | 2018-05-05 07:28 | Diagnostic Imaging Report ---
INDICATION: Followup infiltrate. COMPARISON: 05/04/2018 FINDINGS: Single frontal radiographic view of the chest was obtained and demonstrates persistent moderate cardiomegaly. Pulmonary vasculature appears slightly prominent. There has been interval progression of consolidative opacity within the left lung. There is persistent obscuration of the left hemidiaphragm. Right lung is relatively clear. No large effusion is seen on the right. No pneumothorax is identified on either side. Left-sided AICD is noted. Bony structures are stable. IMPRESSION: 1. Interval progression of alveolar consolidation of the left lung concerning for pneumonia. 2. Probable small left basilar effusion. Dictated by: Dictated on workstation # [id number]
--- NOTE | 2018-05-05 08:49 | Progress Note-Cardiology ---
Cardiology SOAP Progress Note Subjective: Sitting up in bed. Frequent cough, occ productive. Feels "a little better than yesterday". No c/o CP, palpitations. C/O gen weakness. Objective: I&O/Vital Signs 05/04/18 05/04/18 05/05/18 05/05/18 22:02 23:00 00:00 00:00 Pulse 63 61 60 Resp 25 20 18 B/P (MAP) 130/84 (99) 138/93 (108) Pulse Ox 98 95 98 O2 Delivery Vapotherm Vapotherm Vapotherm Vapotherm O2 Flow Rate 40.00 40.00 15.00 40.00 25.00 25.00 25.00 FiO2 30 05/05/18 05/05/18 05/05/18 05/05/18 01:00 01:00 02:00 02:23 Pulse 60 60 60 Resp 27 25 B/P (MAP) 130/70 (90) 96/75 (82) Pulse Ox 96 98 97 O2 Delivery Vapotherm Vapotherm Vapotherm O2 Flow Rate 40.00 40.00 15.00 25.00 25.00 FiO2 35 05/05/18 05/05/18 05/05/18 05/05/18 03:00 04:00 04:00 04:00 Temp 98.5 Pulse 60 69 Resp 16 32 B/P (MAP) 119/67 (84) 118/58 (78) Pulse Ox 96 96 95 O2 Delivery Vapotherm Vapotherm Vapotherm O2 Flow Rate 30.00 30.00 15.00 10.00 10.00 FiO2 30 05/05/18 05/05/18 05/05/18 05/05/18 05:00 06:00 06:53 07:00 Pulse 60 65 63 Resp 27 24 23 B/P (MAP) 131/78 (95) 135/98 (110) 141/84 (103) Pulse Ox 95 97 99 97 O2 Delivery Vapotherm Nasal Cannula Nasal Cannula Nasal Cannula O2 Flow Rate 30.00 6.00 6.00 3.00 10.00 05/05/18 05/05/18 05/05/18 07:00 08:05 09:00 Pulse 62 71 75 Resp 13 10 B/P (MAP) 146/77 (100) 134/56 (82) Pulse Ox 97 100 O2 Delivery Nasal Cannula Nasal Cannula O2 Flow Rate 3.00 3.00 05/05/18 00:00 Intake Total 2025 ml Output Total 750 ml Balance 1275 ml Weight (Pounds): 220 Weight (Ounces): 0.0 Weight (Calculated Kilograms): 99.039623 Constitutional: AAO x 3 Respiratory: chest is bilaterally symmetric, rhonchi, other (coarse lower lobes ) Cardiovascular: regular rate-rhythm, S1 and S2, systolic murmur Gastrointestional: soft, audible bowel sounds Extremities: significant edema Neurologic/Psychiatric: grossly intact Skin: No rash, No ulcerations Results/Procedures: Labs Laboratory Tests 05/04/18 11:10: Glucometer 349H 05/04/18 16:49: Glucometer 210H 05/04/18 20:23: Glucometer 115H 05/05/18 02:55: White Blood Count 16.7H, Red Blood Count 3.35L, Hemoglobin 10.0L, Hematocrit 31L , Mean Corpuscular Volume 93, Mean Corpuscular Hemoglobin 30, Mean Corpuscular Hemoglobin Concent 32, Red Cell Distribution Width 13.7, Platelet Count 261, Mean Platelet Volume 9.2, Neutrophils (%) (Auto) 88H, Lymphocytes (%) (Auto) 7L , Monocytes (%) (Auto) 6, Eosinophils (%) (Auto) 0, Basophils (%) (Auto) 0, Neutrophils # (Auto) 14.6H, Lymphocytes # (Auto) 1.1, Monocytes # (Auto) 0.9, Eosinophils # (Auto) 0.0, Basophils # (Auto) 0.0, Sodium Level 139, Potassium Level 3.9, Chloride Level 106, Carbon Dioxide Level 23, Anion Gap 10, Blood Urea Nitrogen 19H, Creatinine 0.68, Estimat Glomerular Filtration Rate > 60, BUN /Creatinine Ratio 28, Glucose Level 133H, Calcium Level 8.9, Phosphorus Level 2.7, Magnesium Level 2.0 Microbiology 05/02/18 Catheter Tip Culture - Preliminary, Resulted No growth 05/02/18 Influenza Types A,B Antigen (YOLIE) - Final, Complete 05/02/18 Urine Culture - Final, Complete NO GROWTH A/P: Assessment: Sepsis due to UTI / pneumonia PAF with RVR associated with hypotension - converted to NSR on 04-24-18 Eliquis for stroke prophylaxis S/p spinal fusion surgery and post-op resp failure requiring intubation and mech vent- extubated Echo of 04/23/18: mod concentric LVH, LVEF 65-70%, mild left atrial enlargement, PASP 30-35 mmHg Chronic migraine headaches. Chronic body pains and fibromyalgia. H/o labile hypertension and postural hypotension History of perioperative bradycardia (asystole) and tachycardia (ventricular fibrillation). 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 MPI of Nov 2017 showed no evidence of significant myocardial ischemia or infarction. LVEF 78% Obesity with a body mass index of approximately 36 The patient has been intolerant to statin therapy on account of chronic pain syndrome. DM II, insulin requiring, managed by [facility] bus escort Chronic cough of undetermined etiology. Dr Saleem following and has diagnosed restrictive lung disease Bilateral intermittent leg swelling, chornic. Venous insuff study of 02/15/16 did not show DVT or reflux in the deep venous system or valvular insuff of greater or small saphenous system or AASV Less than 40% DANIELLE stenosis, 40-59% LICA stenosis on carotid u/s of 02/03/16 Plan: * Complex management * Continue current management of sepsis and resp failure * Continue current regimen * Monitor labs closely Physician Assessment Physician Assessment Please see my note of the same date YASMANI HAMILTON May 05, 2018 08:49 [facility]LI YOO MD [facility] CCDS May 05, 2018 09:20
[2018-05-05] MEDS: MAGNESIUM OXIDE (MAG-OX)400 MG TAB PO SCH ×2 (09:25→17:14)
[2018-05-05] MEDS: meTOprolol TARTRATE 50 MG (LOPRESSOR) TAB PO SCH ×2 (09:25→21:05)
[2018-05-05] MEDS: busPIRone 5 MG (BUSPAR) TAB PO SCH ×3 (09:25→21:06)
[2018-05-05] MEDS: DILTIAZEM 240 MG (CARDIZEM CD) CAP PO SCH (09:25)
[2018-05-05] MEDS: PANTOPRAZOLE 40 MG (PROTONIX) TAB PO SCH (09:25)
[2018-05-05] MEDS: FAMOTIDINE 20MG/2ML IV (PEPCID) IVP SCH (09:25)
[2018-05-05] MEDS: SENNOSIDES 8.6 MG (SENOKOT) TAB PO SCH ×2 (09:25→21:05)
[2018-05-05] MEDS: inSUlin DETERMIR 1 UNIT/0.01 ML (LEVEMIR) CHARGE PER UNIT SQ SCH (09:25)
[2018-05-05] MEDS: CEFEPIME INJECTION 2,000 MG in WATER (STERILE) FOR INJECTION 20 ML IV SCH ×2 (09:25→21:15)
--- NOTE | 2018-05-05 09:25 | Progress Note-Cardiology ---
Cardiology SOAP Progress Note Subjective: She has generalized malaise and weakness She does not cp or palp or syncope She gets short of breath with mild activity Objective: I&O/Vital Signs 05/04/18 05/04/18 05/05/18 05/05/18 22:02 23:00 00:00 00:00 Pulse 63 61 60 Resp 25 20 18 B/P (MAP) 130/84 (99) 138/93 (108) Pulse Ox 98 95 98 O2 Delivery Vapotherm Vapotherm Vapotherm Vapotherm O2 Flow Rate 40.00 40.00 15.00 40.00 25.00 25.00 25.00 FiO2 30 05/05/18 05/05/18 05/05/18 05/05/18 01:00 01:00 02:00 02:23 Pulse 60 60 60 Resp 27 25 B/P (MAP) 130/70 (90) 96/75 (82) Pulse Ox 96 98 97 O2 Delivery Vapotherm Vapotherm Vapotherm O2 Flow Rate 40.00 40.00 15.00 25.00 25.00 FiO2 35 05/05/18 05/05/18 05/05/18 05/05/18 03:00 04:00 04:00 04:00 Temp 98.5 Pulse 60 69 Resp 16 32 B/P (MAP) 119/67 (84) 118/58 (78) Pulse Ox 96 96 95 O2 Delivery Vapotherm Vapotherm Vapotherm O2 Flow Rate 30.00 30.00 15.00 10.00 10.00 FiO2 30 05/05/18 05/05/18 05/05/18 05/05/18 05:00 06:00 06:53 07:00 Pulse 60 65 63 Resp 27 24 23 B/P (MAP) 131/78 (95) 135/98 (110) 141/84 (103) Pulse Ox 95 97 99 97 O2 Delivery Vapotherm Nasal Cannula Nasal Cannula Nasal Cannula O2 Flow Rate 30.00 6.00 6.00 3.00 10.00 05/05/18 05/05/18 05/05/18 07:00 08:05 09:00 Pulse 62 71 75 Resp 13 10 B/P (MAP) 146/77 (100) 134/56 (82) Pulse Ox 97 100 O2 Delivery Nasal Cannula Nasal Cannula O2 Flow Rate 3.00 3.00 05/05/18 00:00 Intake Total 2025 ml Output Total 750 ml Balance 1275 ml Weight (Pounds): 220 Weight (Ounces): 0.0 Weight (Calculated Kilograms): 99.803718 Constitutional: AAO x 3 Respiratory: chest is bilaterally symmetric, rhonchi, other (coarse lower lobes ) Cardiovascular: regular rate-rhythm, S1 and S2, systolic murmur Gastrointestional: soft, audible bowel sounds Extremities: significant edema Neurologic/Psychiatric: grossly intact Skin: No rash, No ulcerations Results/Procedures: Labs Laboratory Tests 05/04/18 11:10: Glucometer 349H 05/04/18 16:49: Glucometer 210H 05/04/18 20:23: Glucometer 115H 05/05/18 02:55: White Blood Count 16.7H, Red Blood Count 3.35L, Hemoglobin 10.0L, Hematocrit 31L , Mean Corpuscular Volume 93, Mean Corpuscular Hemoglobin 30, Mean Corpuscular Hemoglobin Concent 32, Red Cell Distribution Width 13.7, Platelet Count 261, Mean Platelet Volume 9.2, Neutrophils (%) (Auto) 88H, Lymphocytes (%) (Auto) 7L , Monocytes (%) (Auto) 6, Eosinophils (%) (Auto) 0, Basophils (%) (Auto) 0, Neutrophils # (Auto) 14.6H, Lymphocytes # (Auto) 1.1, Monocytes # (Auto) 0.9, Eosinophils # (Auto) 0.0, Basophils # (Auto) 0.0, Sodium Level 139, Potassium Level 3.9, Chloride Level 106, Carbon Dioxide Level 23, Anion Gap 10, Blood Urea Nitrogen 19H, Creatinine 0.68, Estimat Glomerular Filtration Rate > 60, BUN /Creatinine Ratio 28, Glucose Level 133H, Calcium Level 8.9, Phosphorus Level 2.7, Magnesium Level 2.0 Microbiology 05/02/18 Catheter Tip Culture - Preliminary, Resulted No growth 05/02/18 Influenza Types A,B Antigen (YOLIE) - Final, Complete 05/02/18 Urine Culture - Final, Complete NO GROWTH Laboratory Tests 05/04/18 04:28 05/05/18 02:55 A/P: Assessment: Sepsis due to UTI / pneumonia PAF with RVR associated with hypotension - converted to NSR on 04-24-18 - currently in NSR Eliquis for stroke prophylaxis S/p spinal fusion surgery and post-op resp failure Echo of 04/23/18: mod concentric LVH, LVEF 65-70%, mild left atrial enlargement, PASP 30-35 mmHg Chronic pain: chronic migraine headaches, chronic body pains and fibromyalgia. H/o labile hypertension and postural hypotension History of perioperative bradycardia (asystole) and tachycardia (ventricular fibrillation). 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 MPI of Nov 2017 showed no evidence of significant myocardial ischemia or infarction. LVEF 78% Obesity with a body mass index of approximately 37 The patient has been intolerant to statin therapy on account of chronic pain syndrome. DM II, insulin requiring, managed by [facility] lease administration analyst Chronic cough of undetermined etiology. Dr Saleem following and has diagnosed restrictive lung disease Bilateral intermittent leg swelling, chornic. Venous insuff study of 02/15/16 did not show DVT or reflux in the deep venous system or valvular insuff of greater or small saphenous system or AASV Less than 40% DANIELLE stenosis, 40-59% LICA stenosis on carotid u/s of 02/03/16 Plan: * Complex management * Continue current cardiac regimen * Monitor labs closely * I have spoken with her (today and yesterday) and her family (yesterday) and answered CV-related questions in detail [facility]OO [facility] CCDS May 05, 2018 09:25
[2018-05-05] MEDS: APIXABAN 5 MG (ELIQUIS) TABLET PO SCH ×2 (09:26→21:04)
[2018-05-05] MEDS: GABAPENTIN 300 MG (NEURONTIN) CAP PO SCH ×2 (09:26→21:05)
[2018-05-05] MEDS ORDERED: TROUGH ORDER-PHARMACY XX NR (11:30)
--- NOTE | 2018-05-05 12:03 | Physical Therapy Progress Note ---
Therapy Progress Note 1 visit In: 1052 Out: 1109 17 min REEV 17 min Pt was up in recliner and had just finished with RT. Pt is currently off O2. Pt only c/o is dizziness. Pt was able to perform seated LE ex (AP, LAQ, hip flexion ) x10 reps. Pt was able to transfer sit<>stand SBA to FWW. Pt amb 50' with FWW and SBA. Pt returned to recliner. PtsO2 ranged from 94-100% during eval. Pts BP 122/84. Pt has all needs met and is up in recliner. IRENE NEGRO PT May 05, 2018 12:03
--- NOTE | 2018-05-05 12:37 | NUR ---
PTD VANCOMYCIN LABS: SCR 0.68 VANCOMYCIN TROUGH 6.9 PLAN: INCREASE VANCOMYCIN TO 1,500MG IV Q 12 HOURS, NEXT DOSE NOW AND THEN START AT 2300 TONIGHT. WILL CHECK A VANCOMYCIN LEVEL ON 05/07/18 AT 1000.
[2018-05-05] MEDS: VANCOMYCIN 1500 MG/NS 500 ML IVPB IV SCH ×6 (12:44→23:42)
--- NOTE | 2018-05-05 15:11 | Occupational Therapy Eval ---
OT Evaluation-General/PLF Medical Diagnosis Admission Date Apr 21, 2018 at 06:01 Medical Diagnosis: s/p cervical spinal stenosis with anterior C5-C6 fusion Onset Date: Apr 21, 2018 Therapy Diagnosis Therapy Diagnosis: weakness Height/Weight Height (Feet): 5 Height (Inches): 5.00 Weight (Pounds): 220 Weight (Ounces): 0.0 Precautions Precautions/Isolations: Standard Precautions Safety Interventions: Bed Exit Alarm, Reorient-PRN Weight Bear Status Weight Bearing Restriction: Full Weight Bearing Location Restriction: L LE, R LE Referral Physician: Enrike Faulkner DO Referral Reason: Activity Tolerance, Self Care, Evaluation/Treatment, Strengthening/ROM Medical History Pertinent Medical History: CAD, COPD, DM, Diverticulitis, GERD, CT, Neuropathy Current History Patient transfer from acute care to ICU due to marked weakness Reviewed History: Yes Social History Home: Single Level Current Living Status: Spouse Entry Into Home: Stairs With Railing Steps Into Home: 10 Steps Inside Home: 0 ADL-Prior Level of Function Therapy Code Descriptions/Definitions Functional [place] Measure: 0=Not Assessed/NA 4=Minimal Assistance 1=Total Assistance 5=Supervision or Setup 2=Maximal Assistance 6=Modified [place] 3=Moderate Assistance 7=Complete [place] Therapy Quality Codes: 6 Independent with activity with or without an assistive device 5 Patient requires set up or clean up by helper. Patient completes activity by themselves 4 Supervision or touching assist (CGA). [place] provide cues , steadying assist 3 The helper provides less than half the effort to complete the activity 2 The helper provides more than half the effort to complete the activity 1 Dependent. The helper does all the effort to complete an activity 7 Patient refused to complete or attempt activity 9 The patient did not perform the activity before the current illness or injury 88 Not attempted due to Medical conditions or safety concerns Functional Abilities and Goals: Independent: Patient completed the activities by him/herself, with or without an assistive device, with no assistance from a helper. Needed Some Help: Patient needed partial assistance from another person to complete activities. Dependent: A helper completed the activities for the patient. Unknown: Not Applicable: ADL PLOF Comments Pt was Independent in all ADLs & func transfers & mobility at home. Self Care: Independent Functional Cognition: Independent Drive Self: No OT Current Status Subjective Pt in bed, alert, cooperative , oriented & cheerful. Pt agree for therapy. Pt states that, " I was not feeling good a day before yesterday & thus they transfer me here in ICU." Pain Numeric Pain Scale: 4 Location Body Site: Neck Pain Description: Throbbing Mental Status/Objective Patient Orientation: Person, Place, Time Attachments: Central Line, Oxygen, Saline Lock, SCD's, Telemetry Current Glasses/Contacts: No Hearing Aids: No Hand Dominance: Right Upper Extremity ROM WFL Upper Extremity Coordination Intact Upper Extremity Strength MS in BUE -4/5 grossly graded. ADL-Treatment ADL-Current Pt participated in OT assessment. Pt needs min A in supine to sit at the EOB as pt very SOB & weak, SBA for sit to stand , Min A for sit to supine back in bed & for reposition as pt morbidly Obese.Pt completer 25 repsx 1 set x 2 lb wts , 20 reps with red theraband in all planes of motion.& 20 reps using hand gripper to strengthen hand electronic technologist. Therapy Code Descriptions/Definitions Functional [place] Measure: 0=Not Assessed/NA 4=Minimal Assistance 1=Total Assistance 5=Supervision or Setup 2=Maximal Assistance 6=Modified [place] 3=Moderate Assistance 7=Complete [place] Therapy Quality Codes: 6 Independent with activity with or without an assistive device 5 Patient requires set up or clean up by helper. Patient completes activity by themselves 4 Supervision or touching assist (CGA). [place] provide cues , steadying assist 3 The helper provides less than half the effort to complete the activity 2 The helper provides more than half the effort to complete the activity 1 Dependent. The helper does all the effort to complete an activity 7 Patient refused to complete or attempt activity 9 The patient did not perform the activity before the current illness or injury 88 Not attempted due to Medical conditions or safety concerns Eating (FIM): 7 Grooming (FIM): 5 Bathing (FIM): 0 Transfers (B, C, W/C) (FIM): 5 Toilet/Commode Transfer (FIM): 5 Tub Transfer (FIM): 0 Shower Transfer (FIM): 0 Education OT Patient Education: Correct positioning, Instructions to caregiver, Safety issues Teaching Recipient: Patient, Family Teaching Methods: Demonstration Response to Teaching: Verbalize Understanding, Return Demonstration OT Short Term Goals Short Term Goals Time Frame: May 19, 2018 Upper Body Dressing(FIM): 5 Lower Body Dressing(FIM): 5 Toileting(FIM): 5 Transfers (B,C,W/C) (FIM): 4 Toilet/Commode Transfer(FIM): 5 Additional Short Term Goals: 1-Demonstrate ADL Tasks, 2-Verbalize Understanding , 3-ImproveStrength/Eileen 1=Demonstrate adherence to instructed precautions during ADL tasks. 2=Patient will verbalize/demonstrate understanding of assistive devices/ modifications for ADL. 3=Patient will improve strength/tolerance for activity to enable patient to perform ADL's. OT Longterm Goals Longterm Goals Time Frame: Jun 02, 2018 Eating (FIM): 7 Grooming(FIM): 7 Bathing(FIM): 7 Bathing Location: L Arm, R Arm, L Upper Leg, R Upper Leg, L Lower Leg ( including foot), R Lower Leg (including foot), Chest, Abdomen, Buttocks, Perineal Area Upper Body Dressing(FIM): 6 Lower Body Dressing(FIM): 6 Toileting(FIM): 6 Transfers (B,C,W/C) (FIM): 6 Toilet/Commode Transfer(FIM): 6 Additional Goals: 1-Demonstrate ADL Tasks, 2-Verbalize Understanding, 3- ImproveStrength/Eileen 1=Demonstrate adherence to instructed precautions during ADL tasks. 2=Patient will verbalize/demonstrate understanding of assistive devices/ modifications for ADL. 3=Patient will improve strength/tolerance for activity to enable patient to perform ADL's. OT Education/Plan Problem List/Assessment Assessment: Decreased Activ Tolerance, Decreased Safety Aware, Decreased UE Strength, Dependent Transfers, Impaired Bed Mobility, Impaired Funct Balance, Impaired Self-Care Skills Discharge Recommendations Plan/Recommendations: Continue POC Treatment Plan/Plan of Care Treatment,Training & Education: Yes Patient would benefit from OT for education, treatment and training to promote independence in ADL's, mobility, safety and/or upper extremity function for ADL' s. Plan of Care: ADL Retraining, Functional Mobility, UE Funct Exercise/Act, UE Neuromus Re-Ed/Coord Treatment Duration: Jun 02, 2018 Frequency: 5 times per week Estimated Hrs Per Day: .5 hour per day Agreement: Yes Rehab Potential: Good Time/GCodes Start Time: 14:20 Stop Time: 14:45 Total Time Billed (hr/min): 25 Billed Treatment Time 1, EVM15 min, Ex 10 min Total 25 minutes. JOSIAH ABDI OT May 05, 2018 15:11
[2018-05-05] MEDS: PRAMIPEXOLE 0.5 MG TAB (MIRAPEX) PO SCH (17:14)
--- NOTE | 2018-05-05 19:05 | Progress Note (SOAP) ---
Subjective Date Seen by a Provider: May 05, 2018 Time Seen by a Provider: 12:30 Subjective/Events-last exam Fwup Acute Post-Op Respiratory Failure, Stridor/Laryngospasm, COPD, Post-op SVT /V Tach, Diabetes mellitus--insulin requiring, insomnia, weakness/fatigue, UTI/ pneumonia with sepsis. Weak and conversational dyspnea. Focused Exam Lactate Level 05/03/18 05:50: Lactic Acid Level 0.67 Objective Exam Vital Signs Date Time Temp Pulse Resp B/P (MAP) Pulse Ox O2 Delivery O2 Flow Rate FiO2 05/05/18 18:20 94 Nasal Cannula 2.00 05/05/18 16:06 97.1 62 24 139/72 (94) 97 Room Air 05/05/18 16:00 100 Room Air 05/05/18 15:20 Room Air 05/05/18 13:00 65 05/05/18 12:56 63 22 137/70 (92) 95 Room Air 05/05/18 12:38 97.7 05/05/18 12:00 100 Room Air 05/05/18 11:00 122/64 (83) Room Air 05/05/18 10:44 100 Room Air 05/05/18 09:00 75 10 134/56 (82) 100 Room Air 05/05/18 09:00 16 05/05/18 08:30 98.5 05/05/18 08:05 71 13 146/77 (100) 97 Nasal Cannula 3.00 05/05/18 08:00 98 Nasal Cannula 3.00 05/05/18 07:00 62 05/05/18 07:00 63 23 141/84 (103) 97 Nasal Cannula 3.00 05/05/18 06:53 99 Nasal Cannula 6.00 05/05/18 06:00 65 24 135/98 (110) 97 Nasal Cannula 6.00 05/05/18 05:00 60 27 131/78 (95) 95 Vapotherm 30.00 10.00 05/05/18 04:00 95 Vapotherm 15.00 30 05/05/18 04:00 69 32 118/58 (78) 96 Vapotherm 30.00 10.00 05/05/18 04:00 98.5 05/05/18 03:00 60 16 119/67 (84) 96 Vapotherm 30.00 10.00 05/05/18 02:23 97 Vapotherm 15.00 35 05/05/18 02:00 60 25 96/75 (82) 98 Vapotherm 40.00 25.00 05/05/18 01:00 60 05/05/18 01:00 60 27 130/70 (90) 96 Vapotherm 40.00 25.00 05/05/18 00:00 60 18 138/93 (108) 98 Vapotherm 40.00 25.00 05/05/18 00:00 95 Vapotherm 15.00 30 05/04/18 23:00 61 20 98 Vapotherm 40.00 25.00 05/04/18 22:02 63 25 130/84 (99) Vapotherm 40.00 25.00 05/04/18 21:14 98 Vapotherm 20.00 40 05/04/18 21:00 68 27 Vapotherm 40.00 25.00 05/04/18 20:00 61 26 110/70 (83) Vapotherm 40.00 25.00 05/04/18 20:00 95 Vapotherm 20.00 40 05/04/18 20:00 98.0 I & O 05/05/18 07:00 Intake Total 2395 ml Output Total 3900 ml Balance -1505 ml Capillary Refill : Less Than 3 SecondsLess Than 3 Seconds General Appearance: No Apparent Distress, Mild Distress Neck: Supple Respiratory: Lungs Clear, Decreased Breath Sounds, Respiratory Distress (some conversational dyspnea) Cardiovascular: Regular Rate, Rhythm Gastrointestinal: normal bowel sounds, non tender, soft Extremity: Non Tender, No Calf Tenderness, Pedal Edema (trace) Neurologic/Psychiatric: Alert, Oriented x3 Skin: Warm/Dry Results Lab Laboratory Tests 05/04/18 20:23: Glucometer 115H 05/05/18 02:55: White Blood Count 16.7H, Red Blood Count 3.35L, Hemoglobin 10.0L, Hematocrit 31L , Mean Corpuscular Volume 93, Mean Corpuscular Hemoglobin 30, Mean Corpuscular Hemoglobin Concent 32, Red Cell Distribution Width 13.7, Platelet Count 261, Mean Platelet Volume 9.2, Neutrophils (%) (Auto) 88H, Lymphocytes (%) (Auto) 7L , Monocytes (%) (Auto) 6, Eosinophils (%) (Auto) 0, Basophils (%) (Auto) 0, Neutrophils # (Auto) 14.6H, Lymphocytes # (Auto) 1.1, Monocytes # (Auto) 0.9, Eosinophils # (Auto) 0.0, Basophils # (Auto) 0.0, Sodium Level 139, Potassium Level 3.9, Chloride Level 106, Carbon Dioxide Level 23, Anion Gap 10, Blood Urea Nitrogen 19H, Creatinine 0.68, Estimat Glomerular Filtration Rate > 60, BUN /Creatinine Ratio 28, Glucose Level 133H, Calcium Level 8.9, Phosphorus Level 2.7, Magnesium Level 2.0 05/05/18 11:30: Vancomycin Level Trough 6.9L 05/05/18 12:44: Glucometer 227H 05/05/18 17:10: Glucometer 169H Microbiology 05/02/18 Catheter Tip Culture - Final, Complete No growth 05/02/18 Influenza Types A,B Antigen (YOLIE) - Final, Complete 05/02/18 Urine Culture - Final, Complete NO GROWTH Assessment/Plan Assessment/Plan Assess & Plan/Chief Complaint 1. Acute Respiratory Failure--on NC 2. Postop Stridor--resolved 3. Diabetes mellitus--continue current levemir dose and continue SSI 4. COPD--stable 5. SVT/V Tach--resolved/stable 6. Hypotension/Hypothermia--resolved 7. Insomnia--continue doxepin 8. Weakness--continue PT/OT 9. Acute UTI/Pneumonia with Sepsis--continue IV abx Clinical Quality Measures Admission Status Admission Dx 1. Post-op stridor with unstable airway--sedated and intubated on ventilator 2. 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 Hypertensive Urgency with SVT--responded to IV cardizem, likely in response to racemic epi 4. Cervical Spinal Stenosis with Anterior C5-C6 fusion--check stat CT of soft tissues to rule out hematoma DVT/VTE Risk/Contraindication: Risk Factor Score Per Nursin RFS Level Per Nursing on Admit: 4+=Very High NANNETTE REVELES DO May 05, 2018 19:05
[2018-05-05] MEDS: DOXEPIN 10 MG (SINEquan) CAP PO SCH (21:04)
[2018-05-05] MEDS: MELATONIN 3 MG TABLET PO SCH (21:05)
[2018-05-05] MEDS: FAMOTIDINE 20 MG (PEPCID) TABLET PO SCH (21:05)
[2018-05-05] MEDS: GABAPENTIN 100 MG (NEURONTIN) CAP PO SCH (21:05)
[2018-05-05] MEDS: HYDROcodone/APAP 5 MG/325 MG (LORTAB) TAB PO PRN (21:16)
[2018-05-06] VITALS: BP 100/76
[2018-05-06] MEDS: RT-ALBUTEROL/IPRATROPIUM 3 ML (DUONEB) VIAL INH SCH ×5 (03:07→22:06)
[2018-05-06 04:00] VITALS: BP 138/73
[2018-05-06 04:52] LABS: BASOPHILS % (AUTO) 0 % (0-10); EOSINOPHILS % (AUTO) 0 % (0-10); HEMATOCRIT 31 % (35-52); HEMOGLOBIN 9.6 G/DL (11.5-16.0); LYMPHOCYTES # (AUTO) 1.1 X 10^3 (1.0-4.0); LYMPHOCYTES % (AUTO) 9 % (12-44); MEAN CORPUSCULAR HEMOGLOBIN 29 PG (25-34); MEAN CORPUSCULAR HGB CONC 32 G/DL (32-36); MEAN CORPUSCULAR VOLUME 93 FL (80-99); MEAN PLATELET VOLUME 9.2 FL (7.4-10.4); MONOCYTES # (AUTO) 0.7 X 10^3 (0.0-1.0); MONOCYTES % (AUTO) 6 % (0-12); NEUTROPHILS # (AUTO) 10.5 X 10^3 (1.8-7.8); NEUTROPHILS % (AUTO) 85 % (42-75); PLATELET COUNT 275 10^3/uL (130-400); WHITE BLOOD COUNT 12.3 10^3/uL (4.3-11.0)
[2018-05-06 05:13] LABS: BUN/CREATININE RATIO 34; CALCIUM 8.7 MG/DL (8.5-10.1); CARBON DIOXIDE 23 MMOL/L (21-32); CHLORIDE 109 MMOL/L (98-107); CREATININE SERUM 0.64 MG/DL (0.60-1.30); GFR ESTIMATED > 60; GLUCOSE 84 MG/DL (70-105); MAGNESIUM 2.3 MG/DL (1.8-2.4); PHOSPHORUS 2.5 MG/DL (2.3-4.7); POTASSIUM 3.6 MMOL/L (3.6-5.0); SODIUM 143 MMOL/L (135-145)
--- NOTE | 2018-05-06 05:34 | Pulmonary Progress Note ---
Subjective Time Seen by a Provider: 06:08 Subjective/Events-last exam Pt is doing better now. Sepsis Event Evaluation Height, Weight, BMI Height: 5'5.00" Weight: 220lbs. 0.0oz. 99.635952pf; 36.6 BMI Method:Estimated Focused Exam Lactate Level 05/03/18 05:50: Lactic Acid Level 0.67 Exam Exam Vital Signs Date Time Temp Pulse Resp B/P (MAP) Pulse Ox O2 Delivery O2 Flow Rate FiO2 05/06/18 04:00 60 138/73 (94) 96 Room Air 05/06/18 03:08 93 Nasal Cannula 2.00 05/06/18 01:00 60 05/06/18 00:00 Nasal Cannula 2.00 05/06/18 00:00 98.2 Room Air 05/06/18 00:00 65 22 100/76 (84) 94 Room Air 05/05/18 22:58 96 Nasal Cannula 2.00 05/05/18 20:00 Nasal Cannula 2.00 05/05/18 20:00 99.2 05/05/18 20:00 65 26 138/67 (90) 97 Room Air 05/05/18 19:00 70 05/05/18 18:20 94 Nasal Cannula 2.00 05/05/18 16:06 97.1 62 24 139/72 (94) 97 Room Air 05/05/18 16:00 100 Room Air 05/05/18 15:20 Room Air 05/05/18 13:00 65 05/05/18 12:56 63 22 137/70 (92) 95 Room Air 05/05/18 12:38 97.7 05/05/18 12:00 100 Room Air 05/05/18 11:00 122/64 (83) Room Air 05/05/18 10:44 100 Room Air 05/05/18 09:00 75 10 134/56 (82) 100 Room Air 05/05/18 09:00 16 05/05/18 08:30 98.5 05/05/18 08:05 71 13 146/77 (100) 97 Nasal Cannula 3.00 05/05/18 08:00 98 Nasal Cannula 3.00 05/05/18 07:00 62 05/05/18 07:00 63 23 141/84 (103) 97 Nasal Cannula 3.00 05/05/18 06:53 99 Nasal Cannula 6.00 05/05/18 06:00 65 24 135/98 (110) 97 Nasal Cannula 6.00 I & O 05/06/18 07:00 Intake Total 950 ml Output Total 1775 ml Balance -825 ml Height & Weight Height: 5'5.00" Weight: 220lbs. 0.0oz. 99.886599mu; 36.6 BMI Method:Estimated General Appearance: No Apparent Distress Neck: Supple Respiratory: Lungs Clear, No Accessory Muscle Use, No Respiratory Distress, Decreased Breath Sounds Cardiovascular: Regular Rate, Rhythm Capillary Refill: Less Than 3 Seconds Gastrointestinal: normal bowel sounds, non tender, soft Extremity: Non Tender, No Calf Tenderness, Pedal Edema (trace) Neurologic/Psychiatric: Alert, Oriented x3 Skin: Warm/Dry Lymphatic: No Adenopathy Results Lab Laboratory Tests 05/05/18 02:55 05/06/18 04:45 Assessment/Plan Assessment/Plan Acute respiratory failure- Much improved Sepsis -Central line D/C'd -- Tip sent for culture -- No growth thus fare -Mckeon cultures including 1 from central line - -Vanco/Cefepime - await cultures -Pt has PICC line now ICU psychosis -Monitor UTI with sepsis -Cont Abx S/p C5-C6 fusion 04/22 Afib - -Amio, digoxin, cardizem -Cardiology following Hx of laryngal spasms -Ativan PRN HX of cardiac arrest 2010 Last EF 50-55% CAD Obesity THERESA COOK DO May 06, 2018 05:34
[2018-05-06] MEDS: MULTIVIT W/MINERALS TAB (THERAGRAN M) PO SCH (06:44)
[2018-05-06] MEDS: inSUlin ASPART (NovoLOG) 1 UNIT/0.01 ML (CHARGE PER UNIT) SQ SCH ×4 (06:44→20:37)
[2018-05-06] MEDS: HYDROCORTISONE 100 MG/2 ML (Solu-CORTEF) VIAL IV SCH ×2 (06:54→20:36)
[2018-05-06 08:00] VITALS: BP 123/64
--- NOTE | 2018-05-06 08:51 | Progress Note-Cardiology ---
Cardiology SOAP Progress Note Subjective: Continues to c/o cough. C/O fatigue. C/O dizziness with position changes. States BP is dropping after she gets up making her feel weak and dizzy. C/O chest wall pain from coughing. C/O gen fatigue. Objective: I&O/Vital Signs 05/06/18 05/06/18 05/06/18 05/06/18 07:48 08:00 08:00 12:00 Pulse 61 64 Resp 18 25 B/P (MAP) 123/64 (83) 117/78 (91) Pulse Ox 98 100 92 O2 Delivery Nasal Cannula Nasal Cannula Nasal Cannula Nasal Cannula O2 Flow Rate 2.00 2.00 3.00 3.00 05/06/18 05/06/18 05/06/18 05/06/18 12:00 12:07 13:00 16:00 Pulse 61 Pulse Ox 98 O2 Delivery Nasal Cannula Nasal Cannula Nasal Cannula O2 Flow Rate 2.00 2.00 2.00 05/06/18 16:05 Pulse 60 Resp 43 B/P (MAP) O2 Delivery Nasal Cannula O2 Flow Rate 3.00 05/06/18 00:00 Intake Total 950 ml Output Total 1775 ml Balance -825 ml Weight (Pounds): 220 Weight (Ounces): 0.0 Weight (Calculated Kilograms): 99.814707 Constitutional: AAO x 3 Respiratory: chest is bilaterally symmetric, rhonchi, other (coarse lower lobes ) Cardiovascular: regular rate-rhythm, S1 and S2, systolic murmur Gastrointestional: soft, audible bowel sounds Extremities: significant edema Neurologic/Psychiatric: grossly intact Skin: No rash, No ulcerations Results/Procedures: Labs Laboratory Tests 05/05/18 17:10: Glucometer 169H 05/05/18 21:10: Glucometer 209H 05/06/18 04:45: White Blood Count 12.3H, Red Blood Count 3.27L, Hemoglobin 9.6L, Hematocrit 31L , Mean Corpuscular Volume 93, Mean Corpuscular Hemoglobin 29, Mean Corpuscular Hemoglobin Concent 32, Red Cell Distribution Width 14.0, Platelet Count 275, Mean Platelet Volume 9.2, Neutrophils (%) (Auto) 85H, Lymphocytes (%) (Auto) 9L , Monocytes (%) (Auto) 6, Eosinophils (%) (Auto) 0, Basophils (%) (Auto) 0, Neutrophils # (Auto) 10.5H, Lymphocytes # (Auto) 1.1, Monocytes # (Auto) 0.7, Eosinophils # (Auto) 0.0, Basophils # (Auto) 0.0, Sodium Level 143, Potassium Level 3.6, Chloride Level 109H, Carbon Dioxide Level 23, Anion Gap 11, Blood Urea Nitrogen 22H, Creatinine 0.64, Estimat Glomerular Filtration Rate > 60, BUN /Creatinine Ratio 34, Glucose Level 84, Calcium Level 8.7, Phosphorus Level 2.5 , Magnesium Level 2.3 05/06/18 06:43: Glucometer 86 05/06/18 10:14: Glucometer 183H 05/06/18 12:03: Glucometer 215H Microbiology 05/02/18 Catheter Tip Culture - Final, Complete No growth 05/02/18 Influenza Types A,B Antigen (YOLIE) - Final, Complete 05/02/18 Urine Culture - Final, Complete NO GROWTH A/P: Assessment: Sepsis due to UTI / pneumonia PAF with RVR associated with hypotension - converted to NSR on 04-24-18 - currently in NSR Eliquis for stroke prophylaxis S/p spinal fusion surgery and post-op resp failure Echo of 04/23/18: mod concentric LVH, LVEF 65-70%, mild left atrial enlargement, PASP 30-35 mmHg Chronic pain: chronic migraine headaches, chronic body pains and fibromyalgia. H/o labile hypertension and postural hypotension History of perioperative bradycardia (asystole) and tachycardia (ventricular fibrillation). 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 MPI of Nov 2017 showed no evidence of significant myocardial ischemia or infarction. LVEF 78% Obesity with a body mass index of approximately 37 The patient has been intolerant to statin therapy on account of chronic pain syndrome. DM II, insulin requiring, managed by [facility] customer retention representative Chronic cough of undetermined etiology. Dr Saleem following and has diagnosed restrictive lung disease Bilateral intermittent leg swelling, chornic. Venous insuff study of 02/15/16 did not show DVT or reflux in the deep venous system or valvular insuff of greater or small saphenous system or AASV Less than 40% DANIELLE stenosis, 40-59% LICA stenosis on carotid u/s of 02/03/16 Plan: * Complex management * Check ortho v/s d/t c/o dizziness and low blood pressure * Monitor labs closely * We have spoken with her and her family answered CV-related questions in detail Physician Assessment Physician Assessment No cp or palp or syncope. Weakness and shortness of breath persistent but with modest improvement Cor: reg Lungs: fair to good bilat air entry; diminished at the bases Ext: bilat leg edema A&R * As documented in our note above that I updated (italics) and as noted below * Continue current regimen * PRN furosemide * Monitor and correct labs YASMANI HAMILTON May 06, 2018 08:51 ULI YOO MD FACP FAC CCDS May 06, 2018 16:40
[2018-05-06] MEDS: FAMOTIDINE 20 MG (PEPCID) TABLET PO SCH ×2 (09:54→20:38)
[2018-05-06] MEDS: APIXABAN 5 MG (ELIQUIS) TABLET PO SCH ×2 (09:54→20:38)
[2018-05-06] MEDS: CEFEPIME INJECTION 2,000 MG in WATER (STERILE) FOR INJECTION 20 ML IV SCH ×2 (09:54→20:36)
[2018-05-06] MEDS: DILTIAZEM 240 MG (CARDIZEM CD) CAP PO SCH (09:54)
[2018-05-06] MEDS: MAGNESIUM OXIDE (MAG-OX)400 MG TAB PO SCH ×2 (09:54→17:11)
[2018-05-06] MEDS: DOCUSATE SODIUM 100 MG (COLACE) CAP PO PRN (09:54)
[2018-05-06] MEDS: inSUlin DETERMIR 1 UNIT/0.01 ML (LEVEMIR) CHARGE PER UNIT SQ SCH (09:55)
[2018-05-06] MEDS: busPIRone 5 MG (BUSPAR) TAB PO SCH ×3 (09:55→20:37)
[2018-05-06] MEDS: GABAPENTIN 300 MG (NEURONTIN) CAP PO SCH ×2 (09:55→20:38)
[2018-05-06] MEDS: PANTOPRAZOLE 40 MG (PROTONIX) TAB PO SCH (09:55)
[2018-05-06] MEDS: CYCLOBENZAPRINE 10 MG (FLEXERIL) TAB PO PRN (09:55)
[2018-05-06] MEDS: meTOprolol TARTRATE 50 MG (LOPRESSOR) TAB PO SCH ×2 (10:03→20:38)
[2018-05-06] MEDS: SENNOSIDES 8.6 MG (SENOKOT) TAB PO SCH ×2 (10:03→20:38)
--- NOTE | 2018-05-06 10:21 | Diagnostic Imaging Report ---
INDICATION: Left lung infiltrate Frontal chest obtained at 324 hours am, and is compared to yesterday. There is cardiomegaly. The pacemaker device is unchanged. Left perihilar infiltrate is partially obscured from overlying pacemaker but appears mildly improved compared to yesterday. There is no right-sided infiltrate. Right-sided PICC line is stable. IMPRESSION: Cardiomegaly. There appears to be some improvement in left perihilar infiltrate compared to yesterday, this is obscured by the patients overlying pacemaker. There is no new abnormality. Dictated by: Dictated on workstation # [id number]
[2018-05-06] MEDS: VANCOMYCIN 1500 MG/NS 500 ML IVPB IV SCH ×4 (11:38→23:44)
--- NOTE | 2018-05-06 11:40 | Physical Therapy Daily Note ---
PT Daily Note-Current Subjective Pt in bed and agrees to PT. Pt reports that her BP and O2 keep fluctuating from yesterday afternoon to this morning. She states that when she even moves in bed her O2 drops. Pain Numeric Pain Scale: 0-No Pain Location: No Pain Reported Mental Status Patient Orientation: Person, Place, Situation Attachments: Oxygen (2L), Hopper Catheter Transfers Therapy Code Descriptions/Definitions Functional [place] Measure: 0=Not Assessed/NA 4=Minimal Assistance 1=Total Assistance 5=Supervision or Setup 2=Maximal Assistance 6=Modified [place] 3=Moderate Assistance 7=Complete [place] Therapy Quality Codes: 6 Independent with activity with or without an assistive device 5 Patient requires set up or clean up by helper. Patient completes activity by themselves 4 Supervision or touching assist (CGA). Elmo provide cues , steadying assist 3 The helper provides less than half the effort to complete the activity 2 The helper provides more than half the effort to complete the activity 1 Dependent. The helper does all the effort to complete an activity 7 Patient refused to complete or attempt activity 9 The patient did not perform the activity before the current illness or injury 88 Not attempted due to Medical conditions or safety concerns Transfers (B, C, W/C) (FIM): 5 Scootin Supine to/from Sit: 6 Sit to/from Stand: 5 Weight Bearing Right Lower Extremity: Right Full Weight Bearing Left Lower Extremity: Left Full Weight Bearing Gait Training Gait (FIM): 2 Distance (FIM): 2=052-70 ft Distance: 60' Gait Level of Assist: 5 Gait Persons Needed: 1 Gait Assistive Device: FWW Assessment Current Status: Fair Progress Pt is able to perform bed mobility mod I. Pt performs transfers SBA for safety. Pt was able to demonstrate static standing for 2 min with FWW for balance. Pt amb 60' with FWW and SBA for safety with O2 4L during activity. Pt returned to room and transferred to recliner. Pt has all needs met but would like to know why her BP and O2 keep fluctuating. Pt O2 during tx ranged from 91-98%. BP after amb was 164/77. PT Short Term Goals Short Term Goals Time Frame: May 10, 2018 Transfers (B,C,W/C) (FIM): 4 Gait (FIM): 1 Distance (FIM): 1=up to 49 ft Gait Distance Comment: 25' Gait Level of Assist: 4 Gait Assistive Device: FWW PT Plan Problem List Problem List: Activity Tolerance, Functional Strength, Safety, Balance, Gait, Transfer, Bed Mobility, ROM Treatment/Plan Treatment Plan: Continue Plan of Care Treatment Plan: Bed Mobility, Education, Functional Activity Eileen, Functional Strength, Gait, Safety, Therapeutic Exercise, Transfers Treatment Duration: May 10, 2018 Frequency: 6 times per week Estimated Hrs Per Day: .25 hour per day Patient and/or Family Agrees t: Yes Time/GCodes Time In: 1030 Time Out: 1044 Total Billed Treatment Time: 14 Total Billed Treatment 1 visit FA 14 min IRENE NEGRO PT May 06, 2018 11:39
[2018-05-06 12:00] VITALS: BP 117/78
[2018-05-06] MEDS ORDERED: KCL 20 MEQ TAB (K-DUR) PO NR (12:15)
[2018-05-06] MEDS ORDERED: FUROSEMIDE 40 MG/4 ML INJ (LASIX) IVP NR (12:15)
--- NOTE | 2018-05-06 14:25 | Occupational Ther Daily Note ---
OT Current Status-Daily Note Subjective Pt in bed & her son & seated beside her bed. Alert, oriented, cooperative & pt & her family agree for therapy. Pain Numeric Pain Scale: 0-No Pain Mental Status/Objective Patient Orientation: Person, Place, Time, Situation, Normal For Age Therapy Code Descriptions/Definitions Functional [place] Measure: 0=Not Assessed/NA 4=Minimal Assistance 1=Total Assistance 5=Supervision or Setup 2=Maximal Assistance 6=Modified [place] 3=Moderate Assistance 7=Complete [place] Attachments: Central Line, Hopper Catheter, Oxygen, Saline Lock, SCD's ADL-Treatment Pt completed 20 reps x 1 set x 2 lb wt flex / ext of both elbow & shoulders, 20 reps with red theraband with BUE in all planes of motion & 20 reps with hand gripper to strengthen hand 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 Eating (FIM): 7 Grooming (FIM): 6 Bathing (FIM): 0 Education OT Patient Education: Correct positioning, Instructions to caregiver, Safety issues Teaching Recipient: Patient, Family Teaching Methods: Demonstration Response to Teaching: Verbalize Understanding OT Short Term Goals Short Term Goals Time Frame: May 19, 2018 Upper Body Dressing(FIM): 5 Lower Body Dressing(FIM): 5 Toileting(FIM): 5 Transfers (B,C,W/C) (FIM): 4 Toilet/Commode Transfer(FIM): 5 Additional Short Term Goals: 1-Demonstrate ADL Tasks, 2-Verbalize Understanding , 3-ImproveStrength/Eileen 1=Demonstrate adherence to instructed precautions during ADL tasks. 2=Patient will verbalize/demonstrate understanding of assistive devices/ modifications for ADL. 3=Patient will improve strength/tolerance for activity to enable patient to perform ADL's. OT Fci Goals Fci Goals Time Frame: Jun 02, 2018 Eating (FIM): 7 Grooming(FIM): 7 Bathing(FIM): 7 Bathing Location: L Arm, R Arm, L Upper Leg, R Upper Leg, L Lower Leg ( including foot), R Lower Leg (including foot), Chest, Abdomen, Buttocks, Perineal Area Upper Body Dressing(FIM): 6 Lower Body Dressing(FIM): 6 Toileting(FIM): 6 Transfers (B,C,W/C) (FIM): 6 Toilet/Commode Transfer(FIM): 6 Additional Goals: 1-Demonstrate ADL Tasks, 2-Verbalize Understanding, 3- ImproveStrength/Eileen 1=Demonstrate adherence to instructed precautions during ADL tasks. 2=Patient will verbalize/demonstrate understanding of assistive devices/ modifications for ADL. 3=Patient will improve strength/tolerance for activity to enable patient to perform ADL's. OT Education/Plan Problem List/Assessment Assessment: Decreased Activ Tolerance, Decreased Safety Aware, Decreased UE Strength, Dependent Transfers, Impaired Bed Mobility, Impaired Funct Balance, Impaired Self-Care Skills Discharge Recommendations Plan/Recommendations: Continue POC Therapy D/C Recommendations: Home w/ Family Support Equpiment Recommendations-D/C: Extended Bath Bench, Extended Shower Sprayer, Nursing Attendant, [place], Toilet Riser Patient/Family Goals To return home Independently with family. Treatment Plan/Plan of Care Treatment,Training & Education: Yes Patient would benefit from OT for education, treatment and training to promote independence in ADL's, mobility, safety and/or upper extremity function for ADL' s. Plan of Care: ADL Retraining, Functional Mobility, UE Funct Exercise/Act, UE Neuromus Re-Ed/Coord Treatment Duration: Jun 02, 2018 Frequency: 5 times per week Estimated Hrs Per Day: .5 hour per day Agreement: Yes Rehab Potential: Good Time/GCodes Start Time: 13:30 Stop Time: 13:46 Total Time Billed (hr/min): 16 Billed Treatment Time 1 Ex 16 min . JOSIAH ABDI OT May 06, 2018 14:25
--- NOTE | 2018-05-06 14:26 | NUR ---
Swing Bed Note: Patient has [employer] [facility] insurance. Prior authorization is required. Benefits et coverage are as follows: Days 1-20 are 100% covered, Days 21-100 are 167.50 per day until deductible et out of pocket are met. Patient does not have a secondary insurance et so she would be responsible for this 20% copay amount per day. Prior auth submitted et await request to submit clinical information. Pending auth number is [id number].
--- NOTE | 2018-05-06 15:23 | NUR ---
Pastoral care visit w/pts son, continue to offer support.
[2018-05-06] MEDS: PRAMIPEXOLE 0.5 MG TAB (MIRAPEX) PO SCH (17:11)
--- NOTE | 2018-05-06 17:40 | Progress Note (SOAP) ---
Subjective Date Seen by a Provider: May 06, 2018 Time Seen by a Provider: 12:15 Subjective/Events-last exam Fwup Acute Post-Op Respiratory Failure, Stridor/Laryngospasm, COPD, Post-op SVT /V Tach, Diabetes mellitus--insulin requiring, insomnia, weakness/fatigue, UTI/ pneumonia with sepsis. Short of air with minimal exertion. Objective Exam Vital Signs Date Time Temp Pulse Resp B/P (MAP) Pulse Ox O2 Delivery O2 Flow Rate FiO2 05/06/18 16:05 60 43 Nasal Cannula 3.00 05/06/18 16:00 Nasal Cannula 2.00 05/06/18 13:00 61 05/06/18 12:07 98 Nasal Cannula 2.00 05/06/18 12:00 Nasal Cannula 2.00 05/06/18 12:00 64 25 117/78 (91) 92 Nasal Cannula 3.00 05/06/18 08:00 61 18 123/64 (83) 100 Nasal Cannula 3.00 05/06/18 08:00 Nasal Cannula 2.00 05/06/18 07:48 98 Nasal Cannula 2.00 05/06/18 04:00 60 138/73 (94) 96 Nasal Cannula 3.00 05/06/18 04:00 Nasal Cannula 2.00 05/06/18 03:08 93 Nasal Cannula 2.00 05/06/18 01:00 60 05/06/18 00:00 Nasal Cannula 2.00 05/06/18 00:00 98.2 Room Air 05/06/18 00:00 65 22 100/76 (84) 94 Nasal Cannula 3.00 05/05/18 22:58 96 Nasal Cannula 2.00 05/05/18 20:00 Nasal Cannula 2.00 05/05/18 20:00 99.2 05/05/18 20:00 65 26 138/67 (90) 97 Nasal Cannula 3.00 05/05/18 19:00 70 05/05/18 18:20 94 Nasal Cannula 2.00 I & O 05/06/18 07:00 Intake Total 1000 ml Output Total 2075 ml Balance -1075 ml Capillary Refill : Less Than 3 SecondsLess Than 3 Seconds General Appearance: No Apparent Distress Neck: Supple Respiratory: Decreased Breath Sounds, Rales, Respiratory Distress Gastrointestinal: normal bowel sounds, non tender, soft Extremity: Non Tender, No Calf Tenderness, Pedal Edema Neurologic/Psychiatric: Alert, Oriented x3 Skin: Pallor Results Lab Laboratory Tests 05/05/18 21:10: Glucometer 209H 05/06/18 04:45: White Blood Count 12.3H, Red Blood Count 3.27L, Hemoglobin 9.6L, Hematocrit 31L , Mean Corpuscular Volume 93, Mean Corpuscular Hemoglobin 29, Mean Corpuscular Hemoglobin Concent 32, Red Cell Distribution Width 14.0, Platelet Count 275, Mean Platelet Volume 9.2, Neutrophils (%) (Auto) 85H, Lymphocytes (%) (Auto) 9L , Monocytes (%) (Auto) 6, Eosinophils (%) (Auto) 0, Basophils (%) (Auto) 0, Neutrophils # (Auto) 10.5H, Lymphocytes # (Auto) 1.1, Monocytes # (Auto) 0.7, Eosinophils # (Auto) 0.0, Basophils # (Auto) 0.0, Sodium Level 143, Potassium Level 3.6, Chloride Level 109H, Carbon Dioxide Level 23, Anion Gap 11, Blood Urea Nitrogen 22H, Creatinine 0.64, Estimat Glomerular Filtration Rate > 60, BUN /Creatinine Ratio 34, Glucose Level 84, Calcium Level 8.7, Phosphorus Level 2.5 , Magnesium Level 2.3 05/06/18 06:43: Glucometer 86 05/06/18 10:14: Glucometer 183H 05/06/18 12:03: Glucometer 215H Microbiology 05/02/18 Catheter Tip Culture - Final, Complete No growth 05/02/18 Influenza Types A,B Antigen (YOLIE) - Final, Complete 05/02/18 Urine Culture - Final, Complete NO GROWTH Assessment/Plan Assessment/Plan Assess & Plan/Chief Complaint 1. Acute Respiratory Failure--on NC, IV lasix now with oral potassium 2. Postop Stridor--resolved 3. Diabetes mellitus--continue current levemir dose and continue SSI 4. COPD--stable 5. SVT/V Tach--resolved/stable 6. Hypotension/Hypothermia--resolved 7. Insomnia--continue doxepin 8. Weakness--continue PT/OT 9. Acute UTI/Pneumonia with Sepsis--continue IV abx Clinical Quality Measures Admission Status Admission Dx 1. Post-op stridor with unstable airway--sedated and intubated on ventilator 2. 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 Hypertensive Urgency with SVT--responded to IV cardizem, likely in response to racemic epi 4. Cervical Spinal Stenosis with Anterior C5-C6 fusion--check stat CT of soft tissues to rule out hematoma DVT/VTE Risk/Contraindication: Risk Factor Score Per Nursin RFS Level Per Nursing on Admit: 4+=Very High NANNETTE REVELES DO May 06, 2018 17:40
--- NOTE | 2018-05-06 19:45 | NUR ---
PT ARRIVED TO FLOOR FROM ICU. REPORTED RECEIVED FROM SHRAVAN ARNOLD.
[2018-05-06] MEDS: MELATONIN 3 MG TABLET PO SCH (20:38)
[2018-05-06] MEDS: GABAPENTIN 100 MG (NEURONTIN) CAP PO SCH (20:38)
[2018-05-06] MEDS: DOXEPIN 10 MG (SINEquan) CAP PO SCH (20:38)
[2018-05-06 20:58] VITALS: BP 120/56
[2018-05-06 23:43] VITALS: BP 145/96
[2018-05-07] MEDS: RT-ALBUTEROL/IPRATROPIUM 3 ML (DUONEB) VIAL INH SCH ×6 (02:01→23:44)
[2018-05-07 04:00] VITALS: BP 147/80
[2018-05-07 05:30] LABS: BASOPHILS % (AUTO) 0 % (0-10); EOSINOPHILS % (AUTO) 0 % (0-10); HEMATOCRIT 31 % (35-52); HEMOGLOBIN 9.6 G/DL (11.5-16.0); LYMPHOCYTES # (AUTO) 1.5 X 10^3 (1.0-4.0); LYMPHOCYTES % (AUTO) 13 % (12-44); MEAN CORPUSCULAR HEMOGLOBIN 29 PG (25-34); MEAN CORPUSCULAR HGB CONC 32 G/DL (32-36); MEAN CORPUSCULAR VOLUME 93 FL (80-99); MEAN PLATELET VOLUME 9.3 FL (7.4-10.4); MONOCYTES # (AUTO) 0.5 X 10^3 (0.0-1.0); MONOCYTES % (AUTO) 5 % (0-12); NEUTROPHILS # (AUTO) 9.6 X 10^3 (1.8-7.8); NEUTROPHILS % (AUTO) 82 % (42-75); PLATELET COUNT 279 10^3/uL (130-400); RED CELL DISTRIBUTION WIDTH 13.8 % (10.0-14.5); WHITE BLOOD COUNT 11.6 10^3/uL (4.3-11.0)
[2018-05-07 05:58] LABS: BUN/CREATININE RATIO 38; CALCIUM 8.3 MG/DL (8.5-10.1); CARBON DIOXIDE 26 MMOL/L (21-32); CHLORIDE 107 MMOL/L (98-107); CREATININE SERUM 0.65 MG/DL (0.60-1.30); GFR ESTIMATED > 60; GLUCOSE 83 MG/DL (70-105); MAGNESIUM 1.9 MG/DL (1.8-2.4); PHOSPHORUS 2.8 MG/DL (2.3-4.7); POTASSIUM 3.2 MMOL/L (3.6-5.0); SODIUM 141 MMOL/L (135-145)
[2018-05-07] MEDS: MULTIVIT W/MINERALS TAB (THERAGRAN M) PO SCH (06:16)
[2018-05-07] MEDS: inSUlin ASPART (NovoLOG) 1 UNIT/0.01 ML (CHARGE PER UNIT) SQ SCH ×4 (06:16→20:53)
[2018-05-07 08:00] VITALS: BP 149/78
[2018-05-07] MEDS: MAGNESIUM OXIDE (MAG-OX)400 MG TAB PO SCH ×2 (08:54→17:50)
[2018-05-07] MEDS: GABAPENTIN 300 MG (NEURONTIN) CAP PO SCH ×2 (08:54→20:52)
[2018-05-07] MEDS: PANTOPRAZOLE 40 MG (PROTONIX) TAB PO SCH (08:54)
[2018-05-07] MEDS: FAMOTIDINE 20 MG (PEPCID) TABLET PO SCH ×2 (08:54→20:52)
[2018-05-07] MEDS: HYDROCORTISONE 100 MG/2 ML (Solu-CORTEF) VIAL IV SCH ×2 (08:54→20:53)
[2018-05-07] MEDS: APIXABAN 5 MG (ELIQUIS) TABLET PO SCH ×2 (08:54→20:52)
[2018-05-07] MEDS: DILTIAZEM 240 MG (CARDIZEM CD) CAP PO SCH (08:54)
[2018-05-07] MEDS: SENNOSIDES 8.6 MG (SENOKOT) TAB PO SCH ×2 (08:54→20:52)
[2018-05-07] MEDS: meTOprolol TARTRATE 50 MG (LOPRESSOR) TAB PO SCH ×2 (08:54→20:52)
--- NOTE | 2018-05-07 08:59 | Pulmonary Progress Note ---
Subjective Time Seen by a Provider: 08:59 Sepsis Event Evaluation Height, Weight, BMI Height: 5'5.00" Weight: 220lbs. 0.0oz. [id number]; 36.6 BMI Method:Estimated Exam Exam Vital Signs Date Time Temp Pulse Resp B/P (MAP) Pulse Ox O2 Delivery O2 Flow Rate FiO2 05/07/18 07:35 94 High Flow N/C 2.00 05/07/18 07:00 60 05/07/18 04:00 97.3 60 22 147/80 (102) 94 Nasal Cannula 2.00 05/07/18 02:02 92 Nasal Cannula 2.00 05/07/18 01:00 60 05/06/18 23:43 97.6 60 22 145/96 (112) 92 Nasal Cannula 2.00 05/06/18 22:09 91 Room Air 05/06/18 20:58 97.8 62 22 120/56 (77) 92 05/06/18 20:00 Room Air 05/06/18 19:00 60 05/06/18 16:05 60 43 Nasal Cannula 3.00 05/06/18 16:00 Nasal Cannula 2.00 05/06/18 13:00 61 05/06/18 12:07 98 Nasal Cannula 2.00 05/06/18 12:00 Nasal Cannula 2.00 05/06/18 12:00 64 25 117/78 (91) 92 Nasal Cannula 3.00 I & O 05/07/18 07:00 Intake Total 1210 ml Output Total 3525 ml Balance -2315 ml Height & Weight Height: 5'5.00" Weight: 220lbs. 0.0oz. 99.043525ly; 36.6 BMI Method:Estimated General Appearance: No Apparent Distress Neck: Supple Respiratory: Decreased Breath Sounds, Rales, Respiratory Distress Cardiovascular: Regular Rate, Rhythm Capillary Refill: Less Than 3 Seconds Gastrointestinal: normal bowel sounds, non tender, soft Extremity: Non Tender, No Calf Tenderness, Pedal Edema Neurologic/Psychiatric: Alert, Oriented x3 Skin: Pallor Lymphatic: No Adenopathy Results Lab Laboratory Tests 05/06/18 04:45 05/07/18 05:23 Assessment/Plan Assessment/Plan Acute respiratory failure- Much improved Sepsis -Central line D/C'd -- Tip sent for culture -- No growth -[place] cultures including 1 from central line - -Vanco/Cefepime - await cultures -Pt has PICC line now UTI with sepsis -Cont Abx S/p C5-C6 fusion 04/22 Afib - -Amio, digoxin, cardizem -Cardiology following Hx of laryngal spasms -Ativan PRN HX of cardiac arrest 2010 Last EF 50-55% CAD Obesity THERESA COOK DO May 07, 2018 08:59
[2018-05-07] MEDS: busPIRone 5 MG (BUSPAR) TAB PO SCH ×3 (09:00→21:02)
[2018-05-07] MEDS ORDERED: KCL 10 MEQ TAB (MICRO K) PO NR (09:00)
[2018-05-07] MEDS: inSUlin DETERMIR 1 UNIT/0.01 ML (LEVEMIR) CHARGE PER UNIT SQ SCH (09:13)
[2018-05-07] MEDS: CEFEPIME INJECTION 2,000 MG in WATER (STERILE) FOR INJECTION 20 ML IV SCH ×3 (09:14→20:53)
[2018-05-07] MEDS ORDERED: TROUGH ORDER-PHARMACY XX ONE (10:00)
--- NOTE | 2018-05-07 10:14 | Physical Therapy Daily Note ---
PT Daily Note-Current Subjective Pt in bed and nurse in room, pt agrees to PT. Pt reports that she hasn't slept for 2 days and is worn out. Pain Numeric Pain Scale: 0-No Pain Location: No Pain Reported Mental Status Patient Orientation: Person, Place, Situation, Normal For Age Attachments: SCD's, Oxygen (2L) Transfers Therapy Code Descriptions/Definitions Functional [place] Measure: 0=Not Assessed/NA 4=Minimal Assistance 1=Total Assistance 5=Supervision or Setup 2=Maximal Assistance 6=Modified [place] 3=Moderate Assistance 7=Complete [place] Therapy Quality Codes: 6 Independent with activity with or without an assistive device 5 Patient requires set up or clean up by helper. Patient completes activity by themselves 4 Supervision or touching assist (CGA). [place] provide cues , steadying assist 3 The helper provides less than half the effort to complete the activity 2 The helper provides more than half the effort to complete the activity 1 Dependent. The helper does all the effort to complete an activity 7 Patient refused to complete or attempt activity 9 The patient did not perform the activity before the current illness or injury 88 Not attempted due to Medical conditions or safety concerns Transfers (B, C, W/C) (FIM): 5 Scootin Supine to/from Sit: 5 Sit to/from Stand: 5 Weight Bearing Right Lower Extremity: Right Full Weight Bearing Left Lower Extremity: Left Full Weight Bearing Gait Training Gait (FIM): 2 Distance (FIM): 1=924-34 ft Distance: 125' Gait Level of Assist: 5 Gait Persons Needed: 1 Gait Assistive Device: FWW Assessment Current Status: Fair Progress Nurse Didi removed pts catheter before pt began tx. Pt was able to perform bed mobility SBA. Pt was able to perform sit<>stand transfer with SBA from EOB to FWW. Pt was able to amb 125' with FWW and SBA with 2L O2. Pt returned to room and transferred to recliner. Pt c/o of migraine once sitting. Pt has all needs met in recliner. PT to increase activity as pt is able to tolerate. PT Short Term Goals Short Term Goals Time Frame: May 10, 2018 Transfers (B,C,W/C) (FIM): 4 Gait (FIM): 1 Distance (FIM): 1=up to 49 ft Gait Distance Comment: 25' Gait Level of Assist: 4 Gait Assistive Device: FWW PT Plan Problem List Problem List: Activity Tolerance, Functional Strength, Safety, Balance, Gait, Transfer, Bed Mobility, ROM Treatment/Plan Treatment Plan: Continue Plan of Care Treatment Plan: Bed Mobility, Education, Functional Activity Eileen, Functional Strength, Gait, Safety, Therapeutic Exercise, Transfers Treatment Duration: May 10, 2018 Frequency: 6 times per week Estimated Hrs Per Day: .25 hour per day Patient and/or Family Agrees t: Yes Safety Risks/Education Patient Education: Gait Training, Transfer Techniques, Correct Positioning, Safety Issues Teaching Recipient: Patient Teaching Methods: Demonstration, Discussion Response to Teaching: Reinforcement Needed Time/GCodes Time In: 930 Time Out: 943 Total Billed Treatment Time: 13 Total Billed Treatment 1 visit FA 13 min AP ALVARADO PT May 07, 2018 10:14
--- NOTE | 2018-05-07 11:55 | Occupational Ther Daily Note ---
OT Current Status-Daily Note Subjective Pt alert, sitting in recliner. Pt agrees to therapy. No c/o pain. Pt stated that she is supposed to have neck brace on when she is up walking around. Set up neck brace for use. Mental Status/Objective Patient Orientation: Person, Place, Time, Situation Therapy Code Descriptions/Definitions Functional [place] Measure: 0=Not Assessed/NA 4=Minimal Assistance 1=Total Assistance 5=Supervision or Setup 2=Maximal Assistance 6=Modified [place] 3=Moderate Assistance 7=Complete [place] Attachments: IV, Oxygen, Telemetry ADL-Treatment Pt ambulated to bathroom using FWW by self. Sat at sink to complete upper body sponge bath and grooming. Pt completed all by self. Pt SOA during treatment and took recovery breaks with slow deep breaths. After therapy, pt sitting in recliner with call light/phone in reach. All needs met in room. Bathing (FIM): 4 Upper Body (FIM): 5 (Pt given hospital gown and was able to don/doff by self without difficulty.) OT Short Term Goals Short Term Goals Time Frame: May 19, 2018 Upper Body Dressing(FIM): 5 Lower Body Dressing(FIM): 5 Toileting(FIM): 5 Transfers (B,C,W/C) (FIM): 4 Toilet/Commode Transfer(FIM): 5 Additional Short Term Goals: 1-Demonstrate ADL Tasks, 2-Verbalize Understanding , 3-ImproveStrength/Eileen 1=Demonstrate adherence to instructed precautions during ADL tasks. 2=Patient will verbalize/demonstrate understanding of assistive devices/ modifications for ADL. 3=Patient will improve strength/tolerance for activity to enable patient to perform ADL's. OT Jail Goals [place] Supervisor Goals Time Frame: Jun 02, 2018 Eating (FIM): 7 Grooming(FIM): 7 Bathing(FIM): 7 Bathing Location: L Arm, R Arm, L Upper Leg, R Upper Leg, L Lower Leg ( including foot), R Lower Leg (including foot), Chest, Abdomen, Buttocks, Perineal Area Upper Body Dressing(FIM): 6 Lower Body Dressing(FIM): 6 Toileting(FIM): 6 Transfers (B,C,W/C) (FIM): 6 Toilet/Commode Transfer(FIM): 6 Additional Goals: 1-Demonstrate ADL Tasks, 2-Verbalize Understanding, 3- ImproveStrength/Eileen 1=Demonstrate adherence to instructed precautions during ADL tasks. 2=Patient will verbalize/demonstrate understanding of assistive devices/ modifications for ADL. 3=Patient will improve strength/tolerance for activity to enable patient to perform ADL's. OT Education/Plan Discharge Recommendations Plan/Recommendations: Continue POC Treatment Plan/Plan of Care Patient would benefit from OT for education, treatment and training to promote independence in ADL's, mobility, safety and/or upper extremity function for ADL' s. Plan of Care: ADL Retraining, Functional Mobility, UE Funct Exercise/Act, UE Neuromus Re-Ed/Coord Treatment Duration: Jun 02, 2018 Frequency: 5 times per week Estimated Hrs Per Day: .5 hour per day Agreement: Yes Rehab Potential: Good Time/GCodes Start Time: 11:15 Stop Time: 11:40 Total Time Billed (hr/min): 25 Billed Treatment Time 1 visit-ADL 2 (25 min) ALYSHA CHIANG May 07, 2018 11:55
[2018-05-07 12:00] VITALS: BP 155/93
[2018-05-07 16:01] VITALS: BP 150/81
[2018-05-07] MEDS: PRAMIPEXOLE 0.5 MG TAB (MIRAPEX) PO SCH (17:50)
[2018-05-07] MEDS ORDERED: KCL 8 MEQ (MICRO K) TABLET PO NR (19:00)
--- NOTE | 2018-05-07 19:00 | Progress Note (SOAP) ---
Subjective Date Seen by a Provider: May 07, 2018 Time Seen by a Provider: 12:30 Subjective/Events-last exam Fwup Acute Post-Op Respiratory Failure, Stridor/Laryngospasm, COPD, Post-op SVT /V Tach, Diabetes mellitus--insulin requiring, insomnia, weakness/fatigue, UTI/ pneumonia with sepsis. Lasix did help dyspnea yesterday. Sitting up in chair. Objective Exam Vital Signs Date Time Temp Pulse Resp B/P (MAP) Pulse Ox O2 Delivery O2 Flow Rate FiO2 05/07/18 16:01 97.9 60 21 150/81 (104) 95 Nasal Cannula 2.00 05/07/18 13:52 93 High Flow N/C 2.00 05/07/18 12:49 62 05/07/18 12:00 98.2 60 20 155/93 (113) 93 Nasal Cannula 2.00 05/07/18 10:44 94 High Flow N/C 2.00 05/07/18 08:00 98.0 62 18 149/78 (101) 95 Nasal Cannula 2.00 05/07/18 08:00 Nasal Cannula 2.00 05/07/18 07:35 94 High Flow N/C 2.00 05/07/18 07:00 60 05/07/18 04:00 97.3 60 22 147/80 (102) 94 Nasal Cannula 2.00 05/07/18 02:02 92 Nasal Cannula 2.00 05/07/18 01:00 60 05/06/18 23:43 97.6 60 22 145/96 (112) 92 Nasal Cannula 2.00 05/06/18 22:09 91 Room Air 05/06/18 20:58 97.8 62 22 120/56 (77) 92 05/06/18 20:00 Room Air 05/06/18 19:00 60 I & O 05/07/18 07:00 Intake Total 1210 ml Output Total 3525 ml Balance -2315 ml Capillary Refill : Less Than 3 SecondsLess Than 3 Seconds General Appearance: No Apparent Distress Neck: Supple Respiratory: Decreased Breath Sounds (coarse) Cardiovascular: Regular Rate, Rhythm Gastrointestinal: normal bowel sounds, non tender, soft Extremity: Non Tender, No Calf Tenderness, No Pedal Edema Neurologic/Psychiatric: Alert, Oriented x3 Skin: Pallor Results Lab Laboratory Tests 05/06/18 20:13: Glucometer 200H 05/07/18 05:23: White Blood Count 11.6H, Red Blood Count 3.27L, Hemoglobin 9.6L, Hematocrit 31L , Mean Corpuscular Volume 93, Mean Corpuscular Hemoglobin 29, Mean Corpuscular Hemoglobin Concent 32, Red Cell Distribution Width 13.8, Platelet Count 279, Mean Platelet Volume 9.3, Neutrophils (%) (Auto) 82H, Lymphocytes (%) (Auto) 13 , Monocytes (%) (Auto) 5, Eosinophils (%) (Auto) 0, Basophils (%) (Auto) 0, Neutrophils # (Auto) 9.6H, Lymphocytes # (Auto) 1.5, Monocytes # (Auto) 0.5, Eosinophils # (Auto) 0.0, Basophils # (Auto) 0.0, Sodium Level 141, Potassium Level 3.2L, Chloride Level 107, Carbon Dioxide Level 26, Anion Gap 8, Blood Urea Nitrogen 25H, Creatinine 0.65, Estimat Glomerular Filtration Rate > 60, BUN /Creatinine Ratio 38, Glucose Level 83, Calcium Level 8.3L, Phosphorus Level 2.8 , Magnesium Level 1.9 05/07/18 11:22: Glucometer 142H 05/07/18 16:48: Glucometer 181H Microbiology 05/02/18 Catheter Tip Culture - Final, Complete No growth 05/02/18 Influenza Types A,B Antigen (YOLIE) - Final, Complete 05/02/18 Urine Culture - Final, Complete NO GROWTH Assessment/Plan Assessment/Plan Assess & Plan/Chief Complaint 1. Acute Respiratory Failure--on NC, start oral lasix 2. Postop Stridor--resolved 3. Diabetes mellitus--continue current levemir dose and continue SSI 4. COPD--stable 5. SVT/V Tach--resolved/stable 6. Hypotension/Hypothermia--resolved 7. Insomnia--continue doxepin 8. Weakness--continue PT/OT, SWING bed evaluation 9. Acute UTI/Pneumonia with Sepsis--continue IV abx Clinical Quality Measures Admission Status Admission Dx 1. Post-op stridor with unstable airway--sedated and intubated on ventilator 2. 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 Hypertensive Urgency with SVT--responded to IV cardizem, likely in response to racemic epi 4. Cervical Spinal Stenosis with Anterior C5-C6 fusion--check stat CT of soft tissues to rule out hematoma DVT/VTE Risk/Contraindication: Risk Factor Score Per Nursin RFS Level Per Nursing on Admit: 4+=Very High NANNETTE REVELES DO May 07, 2018 19:00
[2018-05-07 19:57] VITALS: BP 156/73
[2018-05-07] MEDS: MELATONIN 3 MG TABLET PO SCH (20:52)
[2018-05-07] MEDS: GABAPENTIN 100 MG (NEURONTIN) CAP PO SCH (20:52)
[2018-05-07] MEDS: DOXEPIN 10 MG (SINEquan) CAP PO SCH (21:02)
[2018-05-07] MEDS: HYDROcodone/APAP 5 MG/325 MG (LORTAB) TAB PO PRN (23:55)
[2018-05-08 00:30] VITALS: BP 143/82
[2018-05-08] MEDS: RT-ALBUTEROL/IPRATROPIUM 3 ML (DUONEB) VIAL INH SCH ×6 (02:23→21:58)
[2018-05-08] MEDS: HYDROcodone/APAP 5 MG/325 MG (LORTAB) TAB PO PRN ×2 (04:31→22:32)
[2018-05-08 04:56] VITALS: BP 157/76
[2018-05-08 06:04] LABS: BASOPHILS % (AUTO) 0 % (0-10); EOSINOPHILS % (AUTO) 0 % (0-10); HEMATOCRIT 31 % (35-52); LYMPHOCYTES # (AUTO) 2.9 X 10^3 (1.0-4.0); LYMPHOCYTES % (AUTO) 21 % (12-44); MEAN CORPUSCULAR HEMOGLOBIN 30 PG (25-34); MEAN CORPUSCULAR HGB CONC 32 G/DL (32-36); MEAN CORPUSCULAR VOLUME 94 FL (80-99); MEAN PLATELET VOLUME 8.9 FL (7.4-10.4); MONOCYTES # (AUTO) 0.7 X 10^3 (0.0-1.0); MONOCYTES % (AUTO) 5 % (0-12); NEUTROPHILS # (AUTO) 9.9 X 10^3 (1.8-7.8); NEUTROPHILS % (AUTO) 73 % (42-75); PLATELET COUNT 376 10^3/uL (130-400); RED CELL DISTRIBUTION WIDTH 14.3 % (10.0-14.5); WHITE BLOOD COUNT 13.5 10^3/uL (4.3-11.0)
[2018-05-08] MEDS: MULTIVIT W/MINERALS TAB (THERAGRAN M) PO SCH (06:07)
[2018-05-08] MEDS: inSUlin ASPART (NovoLOG) 1 UNIT/0.01 ML (CHARGE PER UNIT) SQ SCH ×4 (06:08→20:11)
[2018-05-08] MEDS: KCL 8 MEQ (MICRO K) TABLET PO SCH (06:08)
[2018-05-08 06:35] LABS: BUN/CREATININE RATIO 34; CALCIUM 8.3 MG/DL (8.5-10.1); CARBON DIOXIDE 27 MMOL/L (21-32); CHLORIDE 109 MMOL/L (98-107); CREATININE SERUM 0.64 MG/DL (0.60-1.30); GFR ESTIMATED > 60; GLUCOSE 67 MG/DL (70-105); MAGNESIUM 1.8 MG/DL (1.8-2.4); PHOSPHORUS 2.5 MG/DL (2.3-4.7); POTASSIUM 3.2 MMOL/L (3.6-5.0); SODIUM 145 MMOL/L (135-145)
--- NOTE | 2018-05-08 07:08 | Pulmonary Progress Note ---
Subjective Time Seen by a Provider: 07:07 Subjective/Events-last exam Pt appears to be doing much better. Sepsis Event Evaluation Height, Weight, BMI Height: 5'5.00" Weight: 220lbs. 0.0oz. 99.814302rc; 36.6 BMI Method:Estimated Exam Exam Vital Signs Date Time Temp Pulse Resp B/P (MAP) Pulse Ox O2 Delivery O2 Flow Rate FiO2 05/08/18 06:45 97 High Flow N/C 2.00 05/08/18 04:56 97.3 60 22 157/76 (103) 95 Nasal Cannula 2.00 05/08/18 02:24 94 High Flow N/C 2.00 05/08/18 01:00 60 05/08/18 00:30 98.2 95 18 143/82 (102) 93 Room Air 05/07/18 20:50 Nasal Cannula 2.00 05/07/18 19:57 98.0 65 22 156/73 (100) 96 Nasal Cannula 2.00 05/07/18 19:06 94 High Flow N/C 2.00 05/07/18 19:00 70 05/07/18 16:01 97.9 60 21 150/81 (104) 95 Nasal Cannula 2.00 05/07/18 13:52 93 High Flow N/C 2.00 05/07/18 12:49 62 05/07/18 12:00 98.2 60 20 155/93 (113) 93 Nasal Cannula 2.00 05/07/18 10:44 94 High Flow N/C 2.00 05/07/18 08:00 98.0 62 18 149/78 (101) 95 Nasal Cannula 2.00 05/07/18 08:00 Nasal Cannula 2.00 05/07/18 07:35 94 High Flow N/C 2.00 I & O 05/08/18 07:00 Intake Total 2310 ml Output Total 2200 ml Balance 110 ml Height & Weight Height: 5'5.00" Weight: 220lbs. 0.0oz. 99.693608zi; 36.6 BMI Method:Estimated General Appearance: No Apparent Distress Neck: Supple Respiratory: Decreased Breath Sounds (coarse) Cardiovascular: Regular Rate, Rhythm Capillary Refill: Less Than 3 Seconds Gastrointestinal: normal bowel sounds, non tender, soft Extremity: Non Tender, No Calf Tenderness, No Pedal Edema Neurologic/Psychiatric: Alert, Oriented x3 Skin: Pallor Lymphatic: No Adenopathy Results Lab Laboratory Tests 05/07/18 05:23 05/08/18 05:55 Assessment/Plan Assessment/Plan s/p acute respiratory failure -Titrate oxygen to D/C if possible -Check ambulatory desat test UTI with sepsis -Cont Abx S/p C5-C6 fusion 04/22 Afib - -Amio, digoxin, cardizem -Cardiology following Hx of laryngal spasms -Ativan PRN HX of cardiac arrest 2010 Last EF 50-55% CAD Obesity THERESA COOK DO May 08, 2018 07:08
[2018-05-08 08:00] VITALS: BP 160/67
[2018-05-08] MEDS: CEFEPIME INJECTION 2,000 MG in WATER (STERILE) FOR INJECTION 20 ML IV SCH ×2 (08:36→20:05)
[2018-05-08] MEDS: MAGNESIUM OXIDE (MAG-OX)400 MG TAB PO SCH ×2 (08:36→17:26)
[2018-05-08] MEDS: APIXABAN 5 MG (ELIQUIS) TABLET PO SCH ×2 (08:36→20:04)
[2018-05-08] MEDS: FAMOTIDINE 20 MG (PEPCID) TABLET PO SCH ×2 (08:37→20:04)
[2018-05-08] MEDS: DILTIAZEM 240 MG (CARDIZEM CD) CAP PO SCH (08:37)
[2018-05-08] MEDS: FUROSEMIDE 20 MG (LASIX) TAB PO SCH (08:37)
[2018-05-08] MEDS: SENNOSIDES 8.6 MG (SENOKOT) TAB PO SCH ×2 (08:37→20:04)
[2018-05-08] MEDS: meTOprolol TARTRATE 50 MG (LOPRESSOR) TAB PO SCH ×2 (08:37→20:04)
[2018-05-08] MEDS: inSUlin DETERMIR 1 UNIT/0.01 ML (LEVEMIR) CHARGE PER UNIT SQ SCH (08:38)
[2018-05-08] MEDS: PANTOPRAZOLE 40 MG (PROTONIX) TAB PO SCH (08:41)
[2018-05-08] MEDS: busPIRone 5 MG (BUSPAR) TAB PO SCH ×3 (08:41→20:04)
[2018-05-08] MEDS: GABAPENTIN 300 MG (NEURONTIN) CAP PO SCH ×2 (08:41→20:03)
[2018-05-08] MEDS ORDERED: HYDROCORTISONE 100 MG/2 ML (Solu-CORTEF) VIAL IV SCH (09:00)
--- NOTE | 2018-05-08 09:25 | Physical Therapy Daily Note ---
PT Daily Note-Current Subjective Pt had call light on, was in bathroom and agreed to PT. Pain Numeric Pain Scale: 0-No Pain Location: No Pain Reported Mental Status Patient Orientation: Person, Place, Situation, Normal For Age Attachments: Oxygen (2L) Transfers Therapy Code Descriptions/Definitions Functional [place] Measure: 0=Not Assessed/NA 4=Minimal Assistance 1=Total Assistance 5=Supervision or Setup 2=Maximal Assistance 6=Modified [place] 3=Moderate Assistance 7=Complete [place] Therapy Quality Codes: 6 Independent with activity with or without an assistive device 5 Patient requires set up or clean up by helper. Patient completes activity by themselves 4 Supervision or touching assist (CGA). [place] provide cues , steadying assist 3 The helper provides less than half the effort to complete the activity 2 The helper provides more than half the effort to complete the activity 1 Dependent. The helper does all the effort to complete an activity 7 Patient refused to complete or attempt activity 9 The patient did not perform the activity before the current illness or injury 88 Not attempted due to Medical conditions or safety concerns Transfers (B, C, W/C) (FIM): 6 Scootin Sit to/from Stand: 6 Weight Bearing Right Lower Extremity: Right Full Weight Bearing Left Lower Extremity: Left Full Weight Bearing Gait Training Gait (FIM): 5 Distance (FIM): 3=150 ft Distance: 300' Gait Level of Assist: 5 Gait Persons Needed: 1 Gait Assistive Device: FWW slow gait speed Exercises Seated Therapy Exercises: Ankle pumps, Long arc quads, Hip flexion Seated Reps: 20 Assessment Current Status: Good Progress Pt was indep with bathroom skills. Pt amb to bed 15' with FWW mod I. Pt was able to demonstrate seated LE ex. Pt transfers sit<>stand with mod I showing good safety. Pt amb 300' with SBA and FWW on 2L O2 increasing to 3L at end of amb. Pt returned to room and transferred to recliner. PT instructed pt that she can get up on her own and go to the bathroom and that PT will notify nursing to let her get up in her room ab jozef. Pt has all needs met. PT Short Term Goals Short Term Goals Time Frame: May 10, 2018 Transfers (B,C,W/C) (FIM): 4 Gait (FIM): 1 Distance (FIM): 1=up to 49 ft Gait Distance Comment: 25' Gait Level of Assist: 4 Gait Assistive Device: FWW PT Plan Problem List Problem List: Activity Tolerance, Functional Strength, Safety, Balance, Gait, Transfer, Bed Mobility, ROM Treatment/Plan Treatment Plan: Continue Plan of Care Treatment Plan: Bed Mobility, Education, Functional Activity Eileen, Functional Strength, Gait, Safety, Therapeutic Exercise, Transfers Treatment Duration: May 10, 2018 Frequency: 6 times per week Estimated Hrs Per Day: .25 hour per day Patient and/or Family Agrees t: Yes Time/GCodes Time In: 725 Time Out: 740 Total Billed Treatment Time: 15 Total Billed Treatment 1 visit FA 15 min IRENE NEGRO PT May 08, 2018 09:25
[2018-05-08] MEDS ORDERED: amLODIPine 5 MG (NORVASC) TAB PO NR (11:00)
--- NOTE | 2018-05-08 11:03 | Occupational Ther Daily Note ---
OT Current Status-Daily Note Subjective Pt alert, sitting in recliner. present in room. Pt agrees to therapy. No c/o pain at this time. Mental Status/Objective Patient Orientation: Person, Place, Time, Situation Therapy Code Descriptions/Definitions Functional [place] Measure: 0=Not Assessed/NA 4=Minimal Assistance 1=Total Assistance 5=Supervision or Setup 2=Maximal Assistance 6=Modified [place] 3=Moderate Assistance 7=Complete [place] Attachments: IV, Oxygen ADL-Treatment Pt takes increased time to complete ADLs due to decreased activity tolerance and recovery breaks taken for SOA. After therapy, pt lying in bed with call light/phone in reach. All needs met in room. Bathing (FIM): 6 (Using grabbar, hand held shower and shower bench pt able to complete own shower. ) Bathing Location: L Arm, R Arm, L Upper Leg, R Upper Leg, L Lower Leg ( including foot), R Lower Leg (including foot), Chest, Abdomen, Buttocks, Perineal Area Lower Body Dressing (FIM): 6 (Pt able to don/doff briefs by self.) Toileting (FIM): 6 (Using grabbar, pt able to complete own toileting.) Transfers (B, C, W/C) (FIM): 6 Toilet/Commode Transfer (FIM): 6 (Using grabbar, pt able to complete by self.) Shower Transfer(FIM): 6 (Using grabbar and shower bench, pt able to complete by self.) Pt did not use FWW to ambulate around room. Pt used hand holds and surfaces to balance self. Pt donned/doffed hospital gown by self. OT Short Term Goals Short Term Goals Time Frame: May 19, 2018 Upper Body Dressing(FIM): 5 Lower Body Dressing(FIM): 5 Toileting(FIM): 5 Transfers (B,C,W/C) (FIM): 4 Toilet/Commode Transfer(FIM): 5 Additional Short Term Goals: 1-Demonstrate ADL Tasks, 2-Verbalize Understanding , 3-ImproveStrength/Eileen 1=Demonstrate adherence to instructed precautions during ADL tasks. 2=Patient will verbalize/demonstrate understanding of assistive devices/ modifications for ADL. 3=Patient will improve strength/tolerance for activity to enable patient to perform ADL's. OT Physical Therapy Resident Goals [facility] Goals Time Frame: Jun 02, 2018 Eating (FIM): 7 Grooming(FIM): 7 Bathing(FIM): 7 Bathing Location: L Arm, R Arm, L Upper Leg, R Upper Leg, L Lower Leg ( including foot), R Lower Leg (including foot), Chest, Abdomen, Buttocks, Perineal Area Upper Body Dressing(FIM): 6 Lower Body Dressing(FIM): 6 Toileting(FIM): 6 Transfers (B,C,W/C) (FIM): 6 Toilet/Commode Transfer(FIM): 6 Additional Goals: 1-Demonstrate ADL Tasks, 2-Verbalize Understanding, 3- ImproveStrength/Eileen 1=Demonstrate adherence to instructed precautions during ADL tasks. 2=Patient will verbalize/demonstrate understanding of assistive devices/ modifications for ADL. 3=Patient will improve strength/tolerance for activity to enable patient to perform ADL's. OT Education/Plan Problem List/Assessment Assessment: Decreased Activ Tolerance Discharge Recommendations Plan/Recommendations: Continue POC Treatment Plan/Plan of Care Patient would benefit from OT for education, treatment and training to promote independence in ADL's, mobility, safety and/or upper extremity function for ADL' s. Plan of Care: ADL Retraining, Functional Mobility, UE Funct Exercise/Act, UE Neuromus Re-Ed/Coord Treatment Duration: Jun 02, 2018 Frequency: 5 times per week Estimated Hrs Per Day: .5 hour per day Agreement: Yes Rehab Potential: Good Time/GCodes Start Time: 10:50 Stop Time: 11:30 Total Time Billed (hr/min): 40 Billed Treatment Time 1 visit-ADL 3 (40 min) ALYSHA CHIANG May 08, 2018 11:03
--- NOTE | 2018-05-08 11:10 | Progress Note-Cardiology ---
Cardiology SOAP Progress Note Subjective: Sitting up in chair. Denies any c/o CP. Has chronic mild exertional dyspnea which is unchanged. C/O episode of palpitations last noc. No c/o syncope or near syncope. Dizziness has persisted even after reducing BB. Objective: I&O/Vital Signs 05/08/18 05/08/18 05/08/18 05/08/18 06:45 07:03 08:00 08:00 Temp 96.6 Pulse 63 58 Resp 18 B/P (MAP) 160/67 (98) Pulse Ox 97 96 O2 Delivery High Flow N/C Nasal Cannula Nasal Cannula O2 Flow Rate 2.00 2.00 2.00 05/08/18 05/08/18 05/08/18 05/08/18 12:00 12:51 14:53 15:31 Temp 97.1 98.1 Pulse 60 60 62 Resp 18 16 B/P (MAP) 147/70 (95) 147/71 (96) Pulse Ox 95 93 94 O2 Delivery Nasal Cannula High Flow N/C O2 Flow Rate 2.00 2.00 05/08/18 00:00 Intake Total 1790 ml Output Total 2200 ml Balance -410 ml Weight (Pounds): 220 Weight (Ounces): 0.0 Weight (Calculated Kilograms): 99.982448 Constitutional: AAO x 3 Respiratory: chest is bilaterally symmetric, rhonchi, other (coarse lower lobes ) Cardiovascular: regular rate-rhythm, S1 and S2, systolic murmur Gastrointestional: soft, audible bowel sounds Extremities: significant edema Neurologic/Psychiatric: grossly intact Skin: No rash, No ulcerations Results/Procedures: Labs Laboratory Tests 05/07/18 19:53: Glucometer 220H 05/08/18 05:55: White Blood Count 13.5H, Red Blood Count 3.32L, Hemoglobin 10.0L, Hematocrit 31L , Mean Corpuscular Volume 94, Mean Corpuscular Hemoglobin 30, Mean Corpuscular Hemoglobin Concent 32, Red Cell Distribution Width 14.3, Platelet Count 376, Mean Platelet Volume 8.9, Neutrophils (%) (Auto) 73, Lymphocytes (%) (Auto) 21, Monocytes (%) (Auto) 5, Eosinophils (%) (Auto) 0, Basophils (%) (Auto) 0, Neutrophils # (Auto) 9.9H, Lymphocytes # (Auto) 2.9, Monocytes # (Auto) 0.7, Eosinophils # (Auto) 0.0, Basophils # (Auto) 0.0, Sodium Level 145, Potassium Level 3.2L, Chloride Level 109H, Carbon Dioxide Level 27, Anion Gap 9, Blood Urea Nitrogen 22H, Creatinine 0.64, Estimat Glomerular Filtration Rate > 60, BUN /Creatinine Ratio 34, Glucose Level 67L, Calcium Level 8.3L, Phosphorus Level 2.5, Magnesium Level 1.8 05/08/18 05:57: Glucometer 69L 05/08/18 11:37: Glucometer 101 05/08/18 16:39: Glucometer 210H Microbiology 05/02/18 Catheter Tip Culture - Final, Complete No growth 05/02/18 Influenza Types A,B Antigen (YOLIE) - Final, Complete 05/02/18 Urine Culture - Final, Complete NO GROWTH A/P: Assessment: Sepsis due to UTI / pneumonia PAF with RVR associated with hypotension - converted to NSR on 04-24-18 - currently in [facility] for stroke prophylaxis S/p spinal fusion surgery and post-op resp failure Echo of 04/23/18: mod concentric LVH, LVEF 65-70%, mild left atrial enlargement, PASP 30-35 mmHg Chronic pain: chronic migraine headaches, chronic body pains and fibromyalgia. H/o labile hypertension and postural hypotension History of perioperative bradycardia (asystole) and tachycardia (ventricular fibrillation). 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 MPI of Nov 2017 showed no evidence of significant myocardial ischemia or infarction. LVEF 78% Obesity with a body mass index of approximately 37 The patient has been intolerant to statin therapy on account of chronic pain syndrome. DM II, insulin requiring, managed by [facility] florist Chronic cough of undetermined etiology. Dr Saleem following and has diagnosed restrictive lung disease Bilateral intermittent leg swelling, chornic. Venous insuff study of 02/15/16 did not show DVT or reflux in the deep venous system or valvular insuff of greater or small saphenous system or AASV Less than 40% DANIELLE stenosis, 40-59% LICA stenosis on carotid u/s of 02/03/16 Plan: * Complex management * Dizziness - which by description seems to be r/t chronic vertigo * BP increased and episode of palpitations - will increase BB dose * Monitor labs closely * Replace potassium * We have spoken with her and her family answered CV-related questions in detail Physician Assessment Physician Assessment No cp or palp or syncope or shortness of breath at rest Feels better than before Lungs: good air entry, diminished at the bases Cor: reg Ext: no c/c, mild edema A&R * As documented in our note above that I updated (italics) and as noted below * Continue current regimen * Monitor labs YASMANI H[facility]ILTON [facility] May 08, 2018 11:10 ULI YOO MD [facility] May 08, 2018 18:32
[2018-05-08] MEDS ORDERED: KCL 20 MEQ TAB (K-DUR) PO NR (11:15)
[2018-05-08 12:00] VITALS: BP 147/70
--- NOTE | 2018-05-08 13:00 | NUR ---
Notified by our physician that she had performed a Peer to Peer and the [employer] insurance denied swing bed. The peer to peer was performed with Dr. Jones et this is being reviewed by [employer] [facility]. This is a new process for [employer] that I am aware of et the physician has denied our swing bed request verbally telling our physician that the patient can just stay in the status she is in to receive the services that the doctor sited as reasons for the need for skilled level of care. Dr. Reid said that she sited that the patient was going to need multiple IV abx that were scheduled for multiple times a day et that she continues to be short of breath with activity therefore she also continued to need Physical et Occupational therapies for strengthening et continued weaning of oxygen to return to her prior level of independent function at home by herself. I f/u with the clinical reviewer Alejandro at [facility] et he is supposed to be sending me the denial letter. I will continue to f/u on this. The patient has been with us in an acute status for 17 days et meets skilled criteria.
[2018-05-08 15:31] VITALS: BP 147/71
[2018-05-08] MEDS: PRAMIPEXOLE 0.5 MG TAB (MIRAPEX) PO SCH (17:26)
--- NOTE | 2018-05-08 19:08 | Progress Note (SOAP) ---
Subjective Date Seen by a Provider: May 08, 2018 Time Seen by a Provider: 12:30 Subjective/Events-last exam Fwup Acute Post-Op Respiratory Failure, Stridor/Laryngospasm, COPD, Post-op SVT /V Tach, Diabetes mellitus--insulin requiring, insomnia, weakness/fatigue, UTI/ pneumonia with sepsis. Sitting up in chair. Not as dyspneic but still on 3L NC. Still weak but stamina improving. Objective Exam Vital Signs Date Time Temp Pulse Resp B/P (MAP) Pulse Ox O2 Delivery O2 Flow Rate FiO2 05/08/18 15:31 98.1 62 16 147/71 (96) 94 05/08/18 14:53 93 High Flow N/C 2.00 05/08/18 12:51 60 05/08/18 12:00 97.1 60 18 147/70 (95) 95 Nasal Cannula 2.00 05/08/18 08:00 96.6 58 18 160/67 (98) 96 Nasal Cannula 2.00 05/08/18 08:00 Nasal Cannula 2.00 05/08/18 07:03 63 05/08/18 06:45 97 High Flow N/C 2.00 05/08/18 04:56 97.3 60 22 157/76 (103) 95 Nasal Cannula 2.00 05/08/18 02:24 94 High Flow N/C 2.00 05/08/18 01:00 60 05/08/18 00:30 98.2 95 18 143/82 (102) 93 Room Air 05/07/18 20:50 Nasal Cannula 2.00 05/07/18 19:57 98.0 65 22 156/73 (100) 96 Nasal Cannula 2.00 05/07/18 19:06 94 High Flow N/C 2.00 I & O 05/08/18 07:00 Intake Total 2310 ml Output Total 2200 ml Balance 110 ml Capillary Refill : Less Than 3 SecondsLess Than 3 Seconds General Appearance: No Apparent Distress Neck: Supple Respiratory: Lungs Clear, Decreased Breath Sounds Cardiovascular: Regular Rate, Rhythm Extremity: No Calf Tenderness, No Pedal Edema Neurologic/Psychiatric: Alert, Oriented x3 Skin: Warm/Dry Results Lab Laboratory Tests 05/07/18 19:53: Glucometer 220H 05/08/18 05:55: White Blood Count 13.5H, Red Blood Count 3.32L, Hemoglobin 10.0L, Hematocrit 31L , Mean Corpuscular Volume 94, Mean Corpuscular Hemoglobin 30, Mean Corpuscular Hemoglobin Concent 32, Red Cell Distribution Width 14.3, Platelet Count 376, Mean Platelet Volume 8.9, Neutrophils (%) (Auto) 73, Lymphocytes (%) (Auto) 21, Monocytes (%) (Auto) 5, Eosinophils (%) (Auto) 0, Basophils (%) (Auto) 0, Neutrophils # (Auto) 9.9H, Lymphocytes # (Auto) 2.9, Monocytes # (Auto) 0.7, Eosinophils # (Auto) 0.0, Basophils # (Auto) 0.0, Sodium Level 145, Potassium Level 3.2L, Chloride Level 109H, Carbon Dioxide Level 27, Anion Gap 9, Blood Urea Nitrogen 22H, Creatinine 0.64, Estimat Glomerular Filtration Rate > 60, BUN /Creatinine Ratio 34, Glucose Level 67L, Calcium Level 8.3L, Phosphorus Level 2.5, Magnesium Level 1.8 05/08/18 05:57: Glucometer 69L 05/08/18 11:37: Glucometer 101 05/08/18 16:39: Glucometer 210H Microbiology 05/02/18 Catheter Tip Culture - Final, Complete No growth 05/02/18 Influenza Types A,B Antigen (YOLIE) - Final, Complete 05/02/18 Urine Culture - Final, Complete NO GROWTH Assessment/Plan Assessment/Plan Assess & Plan/Chief Complaint 1. Acute Respiratory Failure--on NC at 3L 2. Postop Stridor--resolved 3. Diabetes mellitus--continue current levemir dose and continue SSI 4. COPD--stable 5. SVT/V Tach--resolved/stable 6. Hypotension/Hypothermia--resolved 7. Insomnia--continue doxepin 8. Weakness--continue PT/OT, SWING bed denied by insurance 9. Acute UTI/Pneumonia with Sepsis--continue IV abx, monitor WBC count, CXR in AM, will need IV abx for at least 7 days but maybe 10 pending CXR results Clinical Quality Measures Admission Status Admission Dx 1. Post-op stridor with unstable airway--sedated and intubated on ventilator 2. 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 Hypertensive Urgency with SVT--responded to IV cardizem, likely in response to racemic epi 4. Cervical Spinal Stenosis with Anterior C5-C6 fusion--check stat CT of soft tissues to rule out hematoma DVT/VTE Risk/Contraindication: Risk Factor Score Per Nursin RFS Level Per Nursing on Admit: 4+=Very High NANNETTE REVELES DO May 08, 2018 19:08
[2018-05-08] MEDS: MELATONIN 3 MG TABLET PO SCH (20:03)
[2018-05-08] MEDS: GABAPENTIN 100 MG (NEURONTIN) CAP PO SCH (20:03)
[2018-05-08] MEDS: DOXEPIN 10 MG (SINEquan) CAP PO SCH (20:04)
[2018-05-08 20:12] VITALS: BP 167/76
[2018-05-09 00:51] VITALS: BP 144/82
[2018-05-09] MEDS: RT-ALBUTEROL/IPRATROPIUM 3 ML (DUONEB) VIAL INH SCH ×7 (02:40→22:17)
[2018-05-09 04:08] VITALS: BP 153/87
[2018-05-09] MEDS: HYDROcodone/APAP 5 MG/325 MG (LORTAB) TAB PO PRN (05:54)
[2018-05-09] MEDS: MULTIVIT W/MINERALS TAB (THERAGRAN M) PO SCH (06:09)
[2018-05-09] MEDS: inSUlin ASPART (NovoLOG) 1 UNIT/0.01 ML (CHARGE PER UNIT) SQ SCH ×5 (06:09→21:24)
[2018-05-09] MEDS: KCL 8 MEQ (MICRO K) TABLET PO SCH (06:09)
--- NOTE | 2018-05-09 06:14 | Pulmonary Progress Note ---
Subjective Time Seen by a Provider: 06:14 Subjective/Events-last exam PT complains of chills she is not having Fevers currently Sepsis Event Evaluation Height, Weight, BMI Height: 5'5.00" Weight: 220lbs. 0.0oz. 99.710359oa; 36.6 BMI Method:Estimated Exam Exam Vital Signs Date Time Temp Pulse Resp B/P (MAP) Pulse Ox O2 Delivery O2 Flow Rate FiO2 05/09/18 04:08 96.0 60 18 153/87 (109) 98 Nasal Cannula 2.00 05/09/18 02:40 Room Air 05/09/18 01:18 60 05/09/18 00:51 96.6 60 18 144/82 (102) 92 Nasal Cannula 2.00 05/08/18 21:55 95 High Flow N/C 2.00 05/08/18 20:12 97.0 60 16 167/76 (106) 95 05/08/18 20:05 Nasal Cannula 2.00 05/08/18 19:39 60 05/08/18 15:31 98.1 62 16 147/71 (96) 94 05/08/18 14:53 93 High Flow N/C 2.00 05/08/18 12:51 60 05/08/18 12:00 97.1 60 18 147/70 (95) 95 Nasal Cannula 2.00 05/08/18 08:00 96.6 58 18 160/67 (98) 96 Nasal Cannula 2.00 05/08/18 08:00 Nasal Cannula 2.00 05/08/18 07:03 63 05/08/18 06:45 97 High Flow N/C 2.00 I & O 05/09/18 07:00 Intake Total 1780 ml Output Total 1800 ml Balance -20 ml Height & Weight Height: 5'5.00" Weight: 220lbs. 0.0oz. 99.417630mz; 36.6 BMI Method:Estimated General Appearance: No Apparent Distress Neck: Supple Respiratory: Lungs Clear, Decreased Breath Sounds Cardiovascular: Regular Rate, Rhythm Capillary Refill: Less Than 3 Seconds Gastrointestinal: normal bowel sounds, non tender, soft Extremity: No Calf Tenderness, No Pedal Edema Neurologic/Psychiatric: Alert, Oriented x3 Skin: Warm/Dry Lymphatic: No Adenopathy Results Lab Laboratory Tests 05/08/18 05:55 Assessment/Plan Assessment/Plan s/p acute respiratory failure - pt has home 02 S/p C5-C6 fusion 04/22 Afib - -Cardiology following Hx of laryngal spasms -Ativan PRN HX of cardiac arrest 2010 Last EF 50-55% CAD Obesity THERESA COOK DO May 09, 2018 06:14
[2018-05-09 06:23] LABS: BASOPHILS # (AUTO) 0.1 10^3/uL (0.0-0.1); BASOPHILS % (AUTO) 0 % (0-10); EOSINOPHILS # (AUTO) 0.2 10^3/uL (0.0-0.3); EOSINOPHILS % (AUTO) 2 % (0-10); HEMATOCRIT 35 % (35-52); HEMOGLOBIN 11.1 G/DL (11.5-16.0); LYMPHOCYTES # (AUTO) 4.9 X 10^3 (1.0-4.0); LYMPHOCYTES % (AUTO) 32 % (12-44); MEAN CORPUSCULAR HEMOGLOBIN 30 PG (25-34); MEAN CORPUSCULAR HGB CONC 32 G/DL (32-36); MEAN CORPUSCULAR VOLUME 94 FL (80-99); MEAN PLATELET VOLUME 9.1 FL (7.4-10.4); MONOCYTES # (AUTO) 0.9 X 10^3 (0.0-1.0); MONOCYTES % (AUTO) 6 % (0-12); NEUTROPHILS % (AUTO) 60 % (42-75); PLATELET COUNT 385 10^3/uL (130-400); RED CELL DISTRIBUTION WIDTH 14.3 % (10.0-14.5)
[2018-05-09 06:37] LABS: BUN/CREATININE RATIO 23; CALCIUM 8.7 MG/DL (8.5-10.1); CARBON DIOXIDE 28 MMOL/L (21-32); CHLORIDE 103 MMOL/L (98-107); GFR ESTIMATED > 60; MAGNESIUM 1.9 MG/DL (1.8-2.4); PHOSPHORUS 3.3 MG/DL (2.3-4.7); POTASSIUM 3.7 MMOL/L (3.6-5.0); SODIUM 141 MMOL/L (135-145)
[2018-05-09 06:49] LABS: GLUCOSE 53 MG/DL (70-105)
[2018-05-09 08:00] VITALS: BP 145/78
[2018-05-09] MEDS ORDERED: PHARMACY TO DOSE IV SCH (08:15)
--- NOTE | 2018-05-09 08:50 | Diagnostic Imaging Report ---
INDICATION: Shortness of tear. TIME OF EXAM: 08:33 a.m. Correlation is made with prior study from 05/06/2018. The heart is enlarged but stable. Cardiac defibrillator remains in place. There is some minimal blunting of the left costophrenic angle suggestive of minimal pleural fluid or pleural thickening. The lungs appear to be clear apart from some density noted in the left upper lung laterally suggestive of some residual infiltrate. Right lung is clear. There is no pneumothorax. IMPRESSION: There is some residual infiltrate in left upper lobe as well as a trace left pleural effusion/pleural thickening. Dictated by: Dictated on workstation # [id number]
[2018-05-09] MEDS ORDERED: VANCOMYCIN 2000 MG/NS 500 ML IVPB IV NR ×2 (09:00)
[2018-05-09] MEDS: inSUlin DETERMIR 1 UNIT/0.01 ML (LEVEMIR) CHARGE PER UNIT SQ SCH (09:00)
[2018-05-09] MEDS ORDERED: amLODIPine 5 MG (NORVASC) TAB PO SCH (09:00)
[2018-05-09] MEDS: MAGNESIUM OXIDE (MAG-OX)400 MG TAB PO SCH ×2 (09:16→17:26)
[2018-05-09] MEDS: GABAPENTIN 300 MG (NEURONTIN) CAP PO SCH ×2 (09:16→21:23)
[2018-05-09] MEDS: DILTIAZEM 240 MG (CARDIZEM CD) CAP PO SCH (09:16)
[2018-05-09] MEDS: CEFEPIME INJECTION 2,000 MG in WATER (STERILE) FOR INJECTION 20 ML IV SCH ×2 (09:16→21:21)
[2018-05-09] MEDS: SENNOSIDES 8.6 MG (SENOKOT) TAB PO SCH ×2 (09:17→21:22)
[2018-05-09] MEDS: meTOprolol TARTRATE 50 MG (LOPRESSOR) TAB PO SCH ×2 (09:17→21:23)
[2018-05-09] MEDS: APIXABAN 5 MG (ELIQUIS) TABLET PO SCH ×2 (09:17→21:16)
[2018-05-09] MEDS: FAMOTIDINE 20 MG (PEPCID) TABLET PO SCH ×2 (09:17→21:22)
[2018-05-09] MEDS: PANTOPRAZOLE 40 MG (PROTONIX) TAB PO SCH (09:17)
[2018-05-09] MEDS: FUROSEMIDE 20 MG (LASIX) TAB PO SCH (09:17)
[2018-05-09] MEDS: busPIRone 5 MG (BUSPAR) TAB PO SCH ×3 (09:22→21:22)
--- NOTE | 2018-05-09 09:22 | NUR ---
VANCOMYCIN DOSING REDOSE VANC FROM NOTE 05/05/18 - BOLUS VANC 2GM THEN VANC 1500 MG Q12H CHECK TROUGH LEVEL 05/12 799
--- NOTE | 2018-05-09 10:24 | NUR ---
PT EATING WELL, 100% MEALS. NO NEW WEIGHT SINCE ADMIT. RECOMMEND WEEKLY WEIGHTS TO BETTER ASSESS ADEQUACY OF PO INTAKE. INTAKE LIKELY MEETING NEEDS AT THIS TIME. CONT SAME.
--- NOTE | 2018-05-09 10:29 | Physical Therapy Daily Note ---
PT Daily Note-Current Subjective Patient in recliner pre tx, agrees to PT, no complaints of pain. Appearance Patient in recliner post tx with nurse call, phone, tray, all needs met. Mental Status Patient Orientation: Person, Place, Situation Attachments: Oxygen 2L of O2 nasal canula Transfers Therapy Code Descriptions/Definitions Functional [place] Measure: 0=Not Assessed/NA 4=Minimal Assistance 1=Total Assistance 5=Supervision or Setup 2=Maximal Assistance 6=Modified [place] 3=Moderate Assistance 7=Complete [place] Therapy Quality Codes: 6 Independent with activity with or without an assistive device 5 Patient requires set up or clean up by helper. Patient completes activity by themselves 4 Supervision or touching assist (CGA). [employer] provide cues , steadying assist 3 The helper provides less than half the effort to complete the activity 2 The helper provides more than half the effort to complete the activity 1 Dependent. The helper does all the effort to complete an activity 7 Patient refused to complete or attempt activity 9 The patient did not perform the activity before the current illness or injury 88 Not attempted due to Medical conditions or safety concerns Transfers (B, C, W/C) (FIM): 5 Sit to/from Stand: 5 Bed to/from Chair: 5 Weight Bearing Right Lower Extremity: Right Full Weight Bearing Left Lower Extremity: Left Full Weight Bearing Gait Training Gait (FIM): 5 Distance: 150' Gait Level of Assist: 5 Gait Persons Needed: 1 Gait Assistive Device: FWW Slow but steady ambulation Exercises Seated Therapy Exercises: Ankle pumps, Long arc quads Seated Reps: 15 Treatments transfers, ambulation, functional strengthening Assessment Current Status: Fair Progress improving endurance PT Short Term Goals Short Term Goals Time Frame: May 10, 2018 Transfers (B,C,W/C) (FIM): 4 Gait (FIM): 1 Distance (FIM): 1=up to 49 ft Gait Distance Comment: 25' Gait Level of Assist: 4 Gait Assistive Device: FWW PT Plan Problem List Problem List: Activity Tolerance, Functional Strength, Safety, Balance, Gait, Transfer, Bed Mobility Treatment/Plan Treatment Plan: Continue Plan of Care Treatment Plan: Bed Mobility, Education, Functional Activity Eileen, Functional Strength, Gait, Safety, Therapeutic Exercise, Transfers Treatment Duration: May 10, 2018 Frequency: 6 times per week Estimated Hrs Per Day: .25 hour per day Patient and/or Family Agrees t: Yes Safety Risks/Education Patient Education: Gait Training, Transfer Techniques, Correct Positioning, Safety Issues Teaching Recipient: Patient Teaching Methods: Demonstration, Discussion Response to Teaching: Reinforcement Needed Time/GCodes Time In: 1013 Time Out: 1024 Total Billed Treatment Time: 11 Total Billed Treatment 1 visit FA Anay' AP ALVARADO PT May 09, 2018 10:29
[2018-05-09 12:00] VITALS: BP 132/78
--- NOTE | 2018-05-09 12:45 | Occ Therapy Progress Note ---
Therapy Progress Note Attempted to see pt this am. Pt had tests, nrsg and visitors unable to see. Will attempt in pm. 1 visit ALYSHA CHIANG May 09, 2018 12:45
--- NOTE | 2018-05-09 12:48 | Progress Note (SOAP) ---
Subjective Date Seen by a Provider: May 09, 2018 Time Seen by a Provider: 11:15 Subjective/Events-last exam Fwup Acute Post-Op Respiratory Failure, Stridor/Laryngospasm, COPD, Post-op SVT /V Tach, Diabetes mellitus--insulin requiring, insomnia, weakness/fatigue, UTI/ pneumonia with sepsis. Sitting up in chair. Had chills/rigors this morning. Objective Exam Vital Signs Date Time Temp Pulse Resp B/P (MAP) Pulse Ox O2 Delivery O2 Flow Rate FiO2 05/09/18 11:07 96 High Flow N/C 2.00 05/09/18 08:00 High Flow N/C 2.00 05/09/18 08:00 97.7 63 20 145/78 (100) 95 Nasal Cannula 2.00 05/09/18 07:18 97 High Flow N/C 05/09/18 07:11 67 05/09/18 07:07 93 Room Air 05/09/18 04:08 96.0 60 18 153/87 (109) 98 Nasal Cannula 2.00 05/09/18 02:40 Room Air 05/09/18 01:18 60 05/09/18 00:51 96.6 60 18 144/82 (102) 92 Nasal Cannula 2.00 05/08/18 21:55 95 High Flow N/C 2.00 05/08/18 20:12 97.0 60 16 167/76 (106) 95 05/08/18 20:05 Nasal Cannula 2.00 05/08/18 19:39 60 05/08/18 15:31 98.1 62 16 147/71 (96) 94 05/08/18 14:53 93 High Flow N/C 2.00 05/08/18 12:51 60 I & O 05/09/18 07:00 Intake Total 2230 ml Output Total 1800 ml Balance 430 ml Capillary Refill : Less Than 3 SecondsLess Than 3 Seconds General Appearance: No Apparent Distress Neck: Supple Respiratory: Lungs Clear, Decreased Breath Sounds Cardiovascular: Regular Rate, Rhythm Gastrointestinal: normal bowel sounds, non tender, soft Extremity: Non Tender, No Calf Tenderness, No Pedal Edema Neurologic/Psychiatric: Alert, Oriented x3 Results Lab Laboratory Tests 05/08/18 16:39: Glucometer 210H 05/08/18 20:11: Glucometer 175H 05/09/18 06:02: Glucometer 61L 05/09/18 06:03: White Blood Count 15.0H, Red Blood Count 3.72L, Hemoglobin 11.1L, Hematocrit 35 , Mean Corpuscular Volume 94, Mean Corpuscular Hemoglobin 30, Mean Corpuscular Hemoglobin Concent 32, Red Cell Distribution Width 14.3, Platelet Count 385, Mean Platelet Volume 9.1, Neutrophils (%) (Auto) 60, Lymphocytes (%) (Auto) 32, Monocytes (%) (Auto) 6, Eosinophils (%) (Auto) 2, Basophils (%) (Auto) 0, Neutrophils # (Auto) 9.0H, Lymphocytes # (Auto) 4.9H, Monocytes # (Auto) 0.9, Eosinophils # (Auto) 0.2, Basophils # (Auto) 0.1, Sodium Level 141, Potassium Level 3.7, Chloride Level 103, Carbon Dioxide Level 28, Anion Gap 10, Blood Urea Nitrogen 14, Creatinine 0.60, Estimat Glomerular Filtration Rate > 60, BUN/ Creatinine Ratio 23, Glucose Level 53*L, Calcium Level 8.7, Phosphorus Level 3.3 , Magnesium Level 1.9 05/09/18 11:12: Glucometer 99 Microbiology 05/02/18 Catheter Tip Culture - Final, Complete No growth 05/02/18 Influenza Types A,B Antigen (YOLIE) - Final, Complete 05/02/18 Urine Culture - Final, Complete NO GROWTH Assessment/Plan Assessment/Plan Assess & Plan/Chief Complaint 1. Acute Respiratory Failure--on NC at 3L 2. Postop Stridor--resolved 3. Diabetes mellitus--continue current levemir dose and continue SSI 4. COPD--stable 5. SVT/V Tach--resolved/stable 6. Hypotension/Hypothermia--resolved 7. Insomnia--continue doxepin 8. Weakness--continue PT/OT, SWING bed denied by insurance 9. Acute UTI/Pneumonia with Sepsis--Vancomycin restarted per pulmonology due to chills today as well as elevated WBC count and will continue on Cefepime Clinical Quality Measures Admission Status Admission Dx 1. Post-op stridor with unstable airway--sedated and intubated on ventilator 2. 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 Hypertensive Urgency with SVT--responded to IV cardizem, likely in response to racemic epi 4. Cervical Spinal Stenosis with Anterior C5-C6 fusion--check stat CT of soft tissues to rule out hematoma DVT/VTE Risk/Contraindication: Risk Factor Score Per Nursin RFS Level Per Nursing on Admit: 4+=Very High NANNETTE REVELES DO May 09, 2018 12:48
--- NOTE | 2018-05-09 15:24 | Occupational Ther Daily Note ---
OT Current Status-Daily Note Subjective Pt alert, lying in bed. Pt agrees to therapy. No c/o pain. Mental Status/Objective Therapy Code Descriptions/Definitions Functional [place] Measure: 0=Not Assessed/NA 4=Minimal Assistance 1=Total Assistance 5=Supervision or Setup 2=Maximal Assistance 6=Modified [place] 3=Moderate Assistance 7=Complete [place] ADL-Treatment Pt able to ambulate around room with FWW independently. Goes to toilet and completes hygiene using FWW without difficulty. After therapy, pt lying in bed with call light/phone in reach. All needs met in room. Grooming (FIM): 6 (Pt able to stand at sink and complete own grooming.) Lower Body Dressing (FIM): 6 (Pt able to reach feet and complete own dressing.) OT Short Term Goals Short Term Goals Time Frame: May 19, 2018 Upper Body Dressing(FIM): 5 Lower Body Dressing(FIM): 5 Toileting(FIM): 5 Transfers (B,C,W/C) (FIM): 4 Toilet/Commode Transfer(FIM): 5 Additional Short Term Goals: 1-Demonstrate ADL Tasks, 2-Verbalize Understanding , 3-ImproveStrength/Eileen 1=Demonstrate adherence to instructed precautions during ADL tasks. 2=Patient will verbalize/demonstrate understanding of assistive devices/ modifications for ADL. 3=Patient will improve strength/tolerance for activity to enable patient to perform ADL's. OT [facility] Goals [facility] Goals Time Frame: Jun 02, 2018 Eating (FIM): 7 Grooming(FIM): 7 Bathing(FIM): 7 Bathing Location: L Arm, R Arm, L Upper Leg, R Upper Leg, L Lower Leg ( including foot), R Lower Leg (including foot), Chest, Abdomen, Buttocks, Perineal Area Upper Body Dressing(FIM): 6 Lower Body Dressing(FIM): 6 Toileting(FIM): 6 Transfers (B,C,W/C) (FIM): 6 Toilet/Commode Transfer(FIM): 6 Additional Goals: 1-Demonstrate ADL Tasks, 2-Verbalize Understanding, 3- ImproveStrength/Eileen 1=Demonstrate adherence to instructed precautions during ADL tasks. 2=Patient will verbalize/demonstrate understanding of assistive devices/ modifications for ADL. 3=Patient will improve strength/tolerance for activity to enable patient to perform ADL's. OT Education/Plan Discharge Recommendations Plan/Recommendations: Continue POC Treatment Plan/Plan of Care Patient would benefit from OT for education, treatment and training to promote independence in ADL's, mobility, safety and/or upper extremity function for ADL' s. Plan of Care: ADL Retraining, Functional Mobility, UE Funct Exercise/Act, UE Neuromus Re-Ed/Coord Treatment Duration: Jun 02, 2018 Frequency: 5 times per week Estimated Hrs Per Day: .5 hour per day Agreement: Yes Rehab Potential: Good Time/GCodes Start Time: 15:00 Stop Time: 15:14 Total Time Billed (hr/min): 14 Billed Treatment Time 1 visit-ADL 1 (14 min) ALYSHA CHIANG May 09, 2018 15:24
[2018-05-09 15:36] VITALS: BP 128/77
--- NOTE | 2018-05-09 17:15 | Progress Note-Cardiology ---
Cardiology SOAP Progress Note Subjective: Gen malaise and weakness No cp or palp or syncope Objective: I&O/Vital Signs 05/09/18 05/09/18 05/09/18 05/09/18 07:07 07:11 07:18 08:00 Temp 97.7 Pulse 67 63 Resp 20 B/P (MAP) 145/78 (100) Pulse Ox 93 97 95 O2 Delivery Room Air High Flow N/C Nasal Cannula O2 Flow Rate 2.00 05/09/18 05/09/18 05/09/18 05/09/18 08:00 11:07 12:00 14:48 Temp 98.1 Pulse 60 Resp 20 B/P (MAP) 132/78 (96) Pulse Ox 96 96 95 O2 Delivery High Flow N/C High Flow N/C Nasal Cannula High Flow N/C O2 Flow Rate 2.00 2.00 2.00 2.00 05/09/18 15:36 Temp 96.1 Pulse 62 Resp 16 B/P (MAP) 128/77 (94) Pulse Ox 94 O2 Delivery Nasal Cannula O2 Flow Rate 2.00 05/09/18 00:00 Intake Total 1780 ml Output Total 1800 ml Balance -20 ml Weight (Pounds): 220 Weight (Ounces): 0.0 Weight (Calculated Kilograms): 99.007225 Constitutional: AAO x 3 Respiratory: chest is bilaterally symmetric, rhonchi, other (coarse lower lobes ) Cardiovascular: regular rate-rhythm, S1 and S2, systolic murmur Gastrointestional: soft, audible bowel sounds Extremities: significant edema Neurologic/Psychiatric: grossly intact Skin: No rash, No ulcerations Results/Procedures: Labs Laboratory Tests 05/08/18 20:11: Glucometer 175H 05/09/18 06:02: Glucometer 61L 05/09/18 06:03: White Blood Count 15.0H, Red Blood Count 3.72L, Hemoglobin 11.1L, Hematocrit 35 , Mean Corpuscular Volume 94, Mean Corpuscular Hemoglobin 30, Mean Corpuscular Hemoglobin Concent 32, Red Cell Distribution Width 14.3, Platelet Count 385, Mean Platelet Volume 9.1, Neutrophils (%) (Auto) 60, Lymphocytes (%) (Auto) 32, Monocytes (%) (Auto) 6, Eosinophils (%) (Auto) 2, Basophils (%) (Auto) 0, Neutrophils # (Auto) 9.0H, Lymphocytes # (Auto) 4.9H, Monocytes # (Auto) 0.9, Eosinophils # (Auto) 0.2, Basophils # (Auto) 0.1, Sodium Level 141, Potassium Level 3.7, Chloride Level 103, Carbon Dioxide Level 28, Anion Gap 10, Blood Urea Nitrogen 14, Creatinine 0.60, Estimat Glomerular Filtration Rate > 60, BUN/ Creatinine Ratio 23, Glucose Level 53*L, Calcium Level 8.7, Phosphorus Level 3.3 , Magnesium Level 1.9 05/09/18 11:12: Glucometer 99 05/09/18 15:35: Glucometer 219H Microbiology 05/02/18 Catheter Tip Culture - Final, Complete No growth 05/02/18 Influenza Types A,B Antigen (YOLIE) - Final, Complete 05/02/18 Urine Culture - Final, Complete NO GROWTH Laboratory Tests 05/08/18 05:55 05/09/18 06:03 A/P: Assessment: Sepsis due to UTI / pneumonia PAF with RVR associated with hypotension - converted to NSR on 04-24-18 - currently in NSR Eliquis for stroke prophylaxis S/p spinal fusion surgery and post-op resp failure Echo of 04/23/18: mod concentric LVH, LVEF 65-70%, mild left atrial enlargement, PASP 30-35 mmHg Chronic pain: chronic migraine headaches, chronic body pains and fibromyalgia. H/o labile hypertension and postural hypotension History of perioperative bradycardia (asystole) and tachycardia (ventricular fibrillation). 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 MPI of Nov 2017 showed no evidence of significant myocardial ischemia or infarction. LVEF 78% Obesity with a body mass index of approximately 37 The patient has been intolerant to statin therapy on account of chronic pain syndrome. 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 Dr Saleem following and has diagnosed restrictive lung disease Bilateral intermittent leg swelling, chornic. Venous insuff study of 02/15/16 did not show DVT or reflux in the deep venous system or valvular insuff of greater or small saphenous system or AASV Less than 40% DANIELLE stenosis, 40-59% LICA stenosis on carotid u/s of 02/03/16 Plan: * Continue regimen * Monitor labs closely * I spoke with her and answered CV-related questions ULI YOO MD FACP FAC CCDS May 09, 2018 17:15
[2018-05-09] MEDS: PRAMIPEXOLE 0.5 MG TAB (MIRAPEX) PO SCH (17:27)
[2018-05-09 19:09] VITALS: BP 148/87
[2018-05-09] MEDS: VANCOMYCIN 1500 MG/NS 500 ML IVPB IV SCH ×2 (21:21)
[2018-05-09] MEDS: DOXEPIN 10 MG (SINEquan) CAP PO SCH (21:22)
[2018-05-09] MEDS: MELATONIN 3 MG TABLET PO SCH (21:23)
[2018-05-09] MEDS: GABAPENTIN 100 MG (NEURONTIN) CAP PO SCH (21:23)
[2018-05-10] MEDS: HYDROcodone/APAP 5 MG/325 MG (LORTAB) TAB PO PRN (00:02)
[2018-05-10 00:25] VITALS: BP 141/65
[2018-05-10] MEDS: RT-ALBUTEROL/IPRATROPIUM 3 ML (DUONEB) VIAL INH SCH ×6 (01:33→22:21)
[2018-05-10 04:27] VITALS: BP 125/79
[2018-05-10 05:56] LABS: BASOPHILS % (AUTO) 0 % (0-10); EOSINOPHILS # (AUTO) 0.2 10^3/uL (0.0-0.3); EOSINOPHILS % (AUTO) 2 % (0-10); HEMATOCRIT 35 % (35-52); LYMPHOCYTES # (AUTO) 3.2 X 10^3 (1.0-4.0); LYMPHOCYTES % (AUTO) 28 % (12-44); MEAN CORPUSCULAR HEMOGLOBIN 30 PG (25-34); MEAN CORPUSCULAR HGB CONC 32 G/DL (32-36); MEAN CORPUSCULAR VOLUME 95 FL (80-99); MEAN PLATELET VOLUME 8.7 FL (7.4-10.4); MONOCYTES # (AUTO) 0.4 X 10^3 (0.0-1.0); MONOCYTES % (AUTO) 4 % (0-12); NEUTROPHILS # (AUTO) 7.7 X 10^3 (1.8-7.8); NEUTROPHILS % (AUTO) 66 % (42-75); PLATELET COUNT 346 10^3/uL (130-400); RED CELL DISTRIBUTION WIDTH 14.6 % (10.0-14.5); WHITE BLOOD COUNT 11.6 10^3/uL (4.3-11.0)
[2018-05-10 06:19] LABS: BUN/CREATININE RATIO 19; CARBON DIOXIDE 31 MMOL/L (21-32); CHLORIDE 101 MMOL/L (98-107); CREATININE SERUM 0.64 MG/DL (0.60-1.30); GFR ESTIMATED > 60; GLUCOSE 103 MG/DL (70-105); MAGNESIUM 1.9 MG/DL (1.8-2.4); PHOSPHORUS 3.5 MG/DL (2.3-4.7); POTASSIUM 3.6 MMOL/L (3.6-5.0); SODIUM 141 MMOL/L (135-145)
[2018-05-10] MEDS: inSUlin ASPART (NovoLOG) 1 UNIT/0.01 ML (CHARGE PER UNIT) SQ SCH ×4 (06:34→21:00)
[2018-05-10] MEDS: MULTIVIT W/MINERALS TAB (THERAGRAN M) PO SCH (06:46)
[2018-05-10] MEDS: KCL 8 MEQ (MICRO K) TABLET PO SCH (06:46)
--- NOTE | 2018-05-10 07:20 | Pulmonary Progress Note ---
Subjective Time Seen by a Provider: 07:19 Subjective/Events-last exam SOB however doing better. Sepsis Event Evaluation Height, Weight, BMI Height: 5'5.00" Weight: 220lbs. 0.0oz. 99.876987ff; 36.6 BMI Method:Estimated Exam Exam Vital Signs Date Time Temp Pulse Resp B/P (MAP) Pulse Ox O2 Delivery O2 Flow Rate FiO2 05/10/18 07:11 95 High Flow N/C 2.00 05/10/18 07:04 65 05/10/18 04:27 96.3 61 22 125/79 (94) 96 Nasal Cannula 2.00 05/10/18 01:33 94 High Flow N/C 2.00 05/10/18 01:00 60 05/10/18 00:25 97.8 60 20 141/65 (90) 94 Nasal Cannula 2.00 05/09/18 22:18 94 High Flow N/C 2.00 05/09/18 20:00 High Flow N/C 2.00 05/09/18 19:09 96.8 70 16 148/87 (107) 94 05/09/18 19:00 72 05/09/18 15:36 96.1 62 16 128/77 (94) 94 Nasal Cannula 2.00 05/09/18 14:48 95 High Flow N/C 2.00 05/09/18 12:00 98.1 60 20 132/78 (96) 96 Nasal Cannula 2.00 05/09/18 11:07 96 High Flow N/C 2.00 05/09/18 08:00 High Flow N/C 2.00 05/09/18 08:00 97.7 63 20 145/78 (100) 95 Nasal Cannula 2.00 05/09/18 07:18 97 High Flow N/C I & O 05/10/18 07:00 Intake Total 3395 ml Balance 3395 ml Height & Weight Height: 5'5.00" Weight: 220lbs. 0.0oz. 99.446636ld; 36.6 BMI Method:Estimated General Appearance: No Apparent Distress Neck: Supple Respiratory: Lungs Clear, Decreased Breath Sounds Cardiovascular: Regular Rate, Rhythm Capillary Refill: Less Than 3 Seconds Gastrointestinal: normal bowel sounds, non tender, soft Extremity: Non Tender, No Calf Tenderness, No Pedal Edema Neurologic/Psychiatric: Alert, Oriented x3 Skin: Warm/Dry Lymphatic: No Adenopathy Results Lab Laboratory Tests 05/09/18 06:03 05/10/18 05:50 Assessment/Plan Assessment/Plan s/p acute respiratory failure - pt has home 02 PNA with Leukocytosis - persistent -Was worsening until Vanco restarted -Continue Vanco and cefepime for now S/p C5-C6 fusion 04/22 Afib - -Cardiology following Hx of laryngal spasms -Ativan PRN HX of cardiac arrest 2010 Last EF 50-55% CAD Obesity THERESA COOK DO May 10, 2018 07:20
[2018-05-10 07:40] VITALS: BP 143/67
[2018-05-10] MEDS: FAMOTIDINE 20 MG (PEPCID) TABLET PO SCH ×2 (09:12→23:18)
[2018-05-10] MEDS: APIXABAN 5 MG (ELIQUIS) TABLET PO SCH ×2 (09:12→23:17)
[2018-05-10] MEDS: FUROSEMIDE 20 MG (LASIX) TAB PO SCH (09:12)
[2018-05-10] MEDS: meTOprolol TARTRATE 50 MG (LOPRESSOR) TAB PO SCH ×2 (09:12→23:17)
[2018-05-10] MEDS: MAGNESIUM OXIDE (MAG-OX)400 MG TAB PO SCH ×2 (09:12→16:28)
[2018-05-10] MEDS: SENNOSIDES 8.6 MG (SENOKOT) TAB PO SCH ×2 (09:12→23:16)
[2018-05-10] MEDS: PANTOPRAZOLE 40 MG (PROTONIX) TAB PO SCH (09:12)
[2018-05-10] MEDS: DILTIAZEM 240 MG (CARDIZEM CD) CAP PO SCH (09:12)
[2018-05-10] MEDS: GABAPENTIN 300 MG (NEURONTIN) CAP PO SCH ×2 (09:14→21:00)
[2018-05-10] MEDS: busPIRone 5 MG (BUSPAR) TAB PO SCH ×3 (09:21→23:17)
[2018-05-10] MEDS: VANCOMYCIN 1500 MG/NS 500 ML IVPB IV SCH ×4 (09:22→21:08)
--- NOTE | 2018-05-10 11:09 | Physical Therapy Daily Note ---
PT Daily Note-Current Subjective Pt getting ready for shower upon 1st attempt to see pt, pt requesting later session. 2nd attempt, pt agreeable to PT session, stating she wants to get up and walk and get home soon Pain Numeric Pain Scale: 0-No Pain Appearance Pt long sitting in bed upon arrival, alert and awake At end of session, pt sitting up on EOB with call light, phone and bedside table within reach. Transfers Therapy Code Descriptions/Definitions Functional [place] Measure: 0=Not Assessed/NA 4=Minimal Assistance 1=Total Assistance 5=Supervision or Setup 2=Maximal Assistance 6=Modified [place] 3=Moderate Assistance 7=Complete [place] Therapy Quality Codes: 6 Independent with activity with or without an assistive device 5 Patient requires set up or clean up by helper. Patient completes activity by themselves 4 Supervision or touching assist (CGA). [place] provide cues , steadying assist 3 The helper provides less than half the effort to complete the activity 2 The helper provides more than half the effort to complete the activity 1 Dependent. The helper does all the effort to complete an activity 7 Patient refused to complete or attempt activity 9 The patient did not perform the activity before the current illness or injury 88 Not attempted due to Medical conditions or safety concerns Transfers (B, C, W/C) (FIM): 6 Scootin Rollin Supine to/from Sit: 6 Sit to/from Stand: 6 Pt demonstrating proper technique and safety with transfers Weight Bearing Right Lower Extremity: Right Full Weight Bearing Left Lower Extremity: Left Full Weight Bearing Gait Training Distance (FIM): 3=150 ft Distance: 250 Gait Level of Assist: 5 Gait Persons Needed: 1 Gait Assistive Device: None good pace, step length and height, occasional unsteadiness with use of wall to correct, no LOB requiring assist Treatments Gait transfer and safety training Assessment Current Status: Good Progress PT Short Term Goals Short Term Goals Time Frame: May 10, 2018 Transfers (B,C,W/C) (FIM): 4 Gait (FIM): 1 Distance (FIM): 1=up to 49 ft Gait Distance Comment: 25' Gait Level of Assist: 4 Gait Assistive Device: FWW PT Plan Treatment/Plan Treatment Plan: Continue Plan of Care Treatment Plan: Bed Mobility, Education, Functional Activity Eileen, Functional Strength, Gait, Safety, Therapeutic Exercise, Transfers Treatment Duration: May 10, 2018 Frequency: 6 times per week Estimated Hrs Per Day: .25 hour per day Patient and/or Family Agrees t: Yes Safety Risks/Education Patient Education: Gait Training, Transfer Techniques, Safety Issues Teaching Recipient: Patient Teaching Methods: Discussion Response to Teaching: Verbalize Understanding, Return Demonstration Time/GCodes Time In: 946 Time Out: 1000 Total Billed Treatment Time: 14 Total Billed Treatment 1 visit, GT x 1 unit SKY PATINO PTA May 10, 2018 11:09
[2018-05-10 11:33] VITALS: BP 117/56
[2018-05-10] MEDS: inSUlin DETERMIR 1 UNIT/0.01 ML (LEVEMIR) CHARGE PER UNIT SQ SCH (11:40)
--- NOTE | 2018-05-10 12:57 | Progress Note-Hospitalist ---
Subjective HPI/CC On Admission Date Seen by Provider: May 10, 2018 Time Seen by Provider: 13:00 Subjective/Events-last exam Patient doing much better today Antibiotics maintained and tolerated Much improved status and last weekend Walking around on her own Decrease in the amount of insulin due to hypoglycemia No pain is reported Very complex medical issues Review of Systems General: Fatigue Pulmonary: Dyspnea Musculoskeletal: neck pain Objective Exam Vital Signs Vital Signs Date Time Temp Pulse Resp B/P (MAP) Pulse Ox O2 Delivery O2 Flow Rate FiO2 05/10/18 13:05 66 05/10/18 11:33 98.0 20 117/56 (76) 93 Nasal Cannula 2.00 05/05/18 04:00 30 Capillary Refill : Less Than 3 SecondsLess Than 3 Seconds General Appearance: No Apparent Distress, Chronically ill, Obese Neck: Normal Inspection, Supple Respiratory: Chest Non Tender, Lungs Clear, Normal Breath Sounds, No Accessory Muscle Use, No Respiratory Distress Cardiovascular: Regular Rate, Rhythm Gastrointestinal: Normal Bowel Sounds, Non Tender, Soft Rectal: Deferred Back: No CVA Tenderness Extremity: Non Tender, No Calf Tenderness, No Pedal Edema Neurologic/Psychiatric: Alert, Oriented x3 Skin: Warm/Dry Lymphatic: No Adenopathy Results/Procedures Lab Laboratory Tests 05/10/18 05:50 Patient resulted labs reviewed. Assessment/Plan Assessment and Plan Assess & Plan/Chief Complaint Assessment per PCP: 1. Acute Respiratory Failure--on NC at 3L 2. Postop Stridor--resolved 3. Diabetes mellitus--decrease current Levemir dose nut continue SSI due to hypoglycemia since steroids DC 4. COPD--stable 5. SVT/V Tach--resolved/stable 6. Hypotension/Hypothermia--resolved 7. Insomnia--continue doxepin 8. Weakness--continue PT/OT, SWING bed denied by insurance 9. Acute UTI/Pneumonia with Sepsis--Vancomycin restarted per pulmonology due to chills today as well as elevated WBC count and will continue on Cefepime Plan: Abx Ambulate Supportive care Critical Care Critically Ill Patient Diagnosis/Problems Diagnosis/Problems (1) Respiratory insufficiency Status: Acute (2) Hypotension Status: Resolved Qualifiers: Hypotension type: unspecified hypotension type Qualified Codes: I95.9 - Hypotension, unspecified (3) Stenosis, cervical spine Status: Acute Clinical Quality Measures DVT/VTE Risk/Contraindication: Risk Factor Score Per Nursin RFS Level Per Nursing on Admit: 4+=Very High EDMUNDO CROWELL DO May 10, 2018 12:57
--- NOTE | 2018-05-10 14:08 | Progress Note-Cardiology ---
Cardiology SOAP Progress Note Subjective: Feels stronger today No cp or palp or syncope Objective: I&O/Vital Signs 05/10/18 05/10/18 05/10/18 05/10/18 04:27 07:04 07:11 07:40 Temp 96.3 98.4 Pulse 61 65 70 Resp 22 20 B/P (MAP) 125/79 (94) 143/67 (92) Pulse Ox 96 95 93 O2 Delivery Nasal Cannula High Flow N/C Nasal Cannula O2 Flow Rate 2.00 2.00 2.00 05/10/18 05/10/18 05/10/18 05/10/18 10:25 11:33 13:05 13:57 Temp 98.0 Pulse 70 66 Resp 20 B/P (MAP) 117/56 (76) Pulse Ox 93 93 O2 Delivery High Flow N/C Nasal Cannula High Flow N/C O2 Flow Rate 2.00 2.00 2.00 05/10/18 00:00 Intake Total 3020 ml Balance 3020 ml Weight (Pounds): 220 Weight (Ounces): 0.0 Weight (Calculated Kilograms): 99.972614 Constitutional: AAO x 3 Respiratory: chest is bilaterally symmetric, rhonchi, other (coarse lower lobes ) Cardiovascular: regular rate-rhythm, S1 and S2, systolic murmur Gastrointestional: soft, audible bowel sounds Extremities: significant edema Neurologic/Psychiatric: grossly intact Skin: No rash, No ulcerations Results/Procedures: Labs Laboratory Tests 05/09/18 15:35: Glucometer 219H 05/09/18 20:05: Glucometer 138H 05/10/18 05:36: Glucometer 106 05/10/18 05:50: White Blood Count 11.6H, Red Blood Count 3.65L, Hemoglobin 11.0L, Hematocrit 35 , Mean Corpuscular Volume 95, Mean Corpuscular Hemoglobin 30, Mean Corpuscular Hemoglobin Concent 32, Red Cell Distribution Width 14.6H, Platelet Count 346, Mean Platelet Volume 8.7, Neutrophils (%) (Auto) 66, Lymphocytes (%) (Auto) 28, Monocytes (%) (Auto) 4, Eosinophils (%) (Auto) 2, Basophils (%) (Auto) 0, Neutrophils # (Auto) 7.7, Lymphocytes # (Auto) 3.2, Monocytes # (Auto) 0.4, Eosinophils # (Auto) 0.2, Basophils # (Auto) 0.0, Sodium Level 141, Potassium Level 3.6, Chloride Level 101, Carbon Dioxide Level 31, Anion Gap 9, Blood Urea Nitrogen 12, Creatinine 0.64, Estimat Glomerular Filtration Rate > 60, BUN/ Creatinine Ratio 19, Glucose Level 103, Calcium Level 9.0, Phosphorus Level 3.5 , Magnesium Level 1.9 05/10/18 11:35: Glucometer 136H Microbiology 05/02/18 Catheter Tip Culture - Final, Complete No growth 05/02/18 Influenza Types A,B Antigen (YOLIE) - Final, Complete 05/02/18 Urine Culture - Final, Complete NO GROWTH A/P: Assessment: Sepsis due to UTI / pneumonia PAF with RVR associated with hypotension - converted to NSR on 04-24-18 - currently in NSR Eliquis for stroke prophylaxis S/p spinal fusion surgery and post-op resp failure Echo of 04/23/18: mod concentric LVH, LVEF 65-70%, mild left atrial enlargement, PASP 30-35 mmHg Chronic pain: chronic migraine headaches, chronic body pains and fibromyalgia. H/o labile hypertension and postural hypotension History of perioperative bradycardia (asystole) and tachycardia (ventricular fibrillation). 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 MPI of Nov 2017 showed no evidence of significant myocardial ischemia or infarction. LVEF 78% Obesity with a body mass index of approximately 37 The patient has been intolerant to statin therapy on account of chronic pain syndrome. 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 Dr Saleem following and has diagnosed restrictive lung disease Bilateral intermittent leg swelling, chornic. Venous insuff study of 02/15/16 did not show DVT or reflux in the deep venous system or valvular insuff of greater or small saphenous system or AASV Less than 40% DANIELLE stenosis, 40-59% LICA stenosis on carotid u/s of 02/03/16 Plan: * I discussed her case in detail with Dr Saleem yesterday and today * Continue regimen * Monitor labs closely * I spoke with her and answered CV-related questions ULI YOO MD FACP [facility] CCDS May 10, 2018 14:08
[2018-05-10 15:35] VITALS: BP 115/57
[2018-05-10] MEDS: PRAMIPEXOLE 0.5 MG TAB (MIRAPEX) PO SCH (16:28)
[2018-05-10 20:00] VITALS: BP 128/81
[2018-05-10] MEDS: MELATONIN 3 MG TABLET PO SCH (23:17)
[2018-05-10] MEDS: DOXEPIN 10 MG (SINEquan) CAP PO SCH (23:17)
[2018-05-10] MEDS: GABAPENTIN 100 MG (NEURONTIN) CAP PO SCH (23:18)
[2018-05-11] VITALS: BP 136/76
[2018-05-11] MEDS: RT-ALBUTEROL/IPRATROPIUM 3 ML (DUONEB) VIAL INH SCH ×5 (01:29→18:47)
[2018-05-11 04:00] VITALS: BP 126/79
--- NOTE | 2018-05-11 06:20 | Pulmonary Progress Note ---
Sepsis Event Evaluation Height, Weight, BMI Height: 5'5.00" Weight: 220lbs. 0.0oz. 99.229593ec; 36.6 BMI Method:Estimated Exam Exam Vital Signs Date Time Temp Pulse Resp B/P (MAP) Pulse Ox O2 Delivery O2 Flow Rate FiO2 05/11/18 04:00 97.3 72 22 126/79 (95) 93 Nasal Cannula 2.00 05/11/18 01:29 93 High Flow N/C 2.00 05/11/18 01:00 71 05/11/18 00:00 98.1 68 20 136/76 (96) 94 Nasal Cannula 2.00 05/10/18 22:21 91 High Flow N/C 2.00 05/10/18 20:00 High Flow N/C 2.00 05/10/18 20:00 100.1 68 22 128/81 (97) 92 Nasal Cannula 2.00 05/10/18 19:00 73 05/10/18 15:35 98.9 70 18 115/57 (76) 96 Nasal Cannula 2.00 05/10/18 13:57 High Flow N/C 2.00 05/10/18 13:05 66 05/10/18 11:33 98.0 70 20 117/56 (76) 93 Nasal Cannula 2.00 05/10/18 10:25 93 High Flow N/C 2.00 05/10/18 08:00 High Flow N/C 2.00 05/10/18 07:40 98.4 70 20 143/67 (92) 93 Nasal Cannula 2.00 05/10/18 07:11 95 High Flow N/C 2.00 05/10/18 07:04 65 I & O 05/11/18 07:00 Intake Total 2120 ml Balance 2120 ml Height & Weight Height: 5'5.00" Weight: 220lbs. 0.0oz. 99.337669rx; 36.6 BMI Method:Estimated General Appearance: No Apparent Distress, Chronically ill, Obese Neck: Normal Inspection, Supple Respiratory: Chest Non Tender, Lungs Clear, Normal Breath Sounds, No Accessory Muscle Use, No Respiratory Distress Cardiovascular: Regular Rate, Rhythm Capillary Refill: Less Than 3 Seconds Gastrointestinal: normal bowel sounds, non tender, soft Extremity: Non Tender, No Calf Tenderness, No Pedal Edema Neurologic/Psychiatric: Alert, Oriented x3 Skin: Warm/Dry Lymphatic: No Adenopathy Results Lab Laboratory Tests 05/10/18 05:50 Assessment/Plan Assessment/Plan s/p acute respiratory failure - pt has home 02 PNA with Leukocytosis - persistent -Was worsening until Vanco restarted -Continue Vanco and cefepime for now S/p C5-C6 fusion 04/22 Afib - -Cardiology following Hx of laryngal spasms -Ativan PRN HX of cardiac arrest 2010 Last EF 50-55% CAD Obesity THERESA COOK DO May 11, 2018 06:20
[2018-05-11] MEDS: KCL 8 MEQ (MICRO K) TABLET PO SCH (06:25)
[2018-05-11] MEDS: MULTIVIT W/MINERALS TAB (THERAGRAN M) PO SCH (06:25)
[2018-05-11] MEDS: inSUlin ASPART (NovoLOG) 1 UNIT/0.01 ML (CHARGE PER UNIT) SQ SCH ×4 (06:48→21:37)
[2018-05-11 07:30] VITALS: BP 143/68
[2018-05-11] MEDS: meTOprolol TARTRATE 50 MG (LOPRESSOR) TAB PO SCH ×2 (08:12→21:37)
[2018-05-11] MEDS: GABAPENTIN 300 MG (NEURONTIN) CAP PO SCH ×2 (08:12→21:36)
[2018-05-11] MEDS: MAGNESIUM OXIDE (MAG-OX)400 MG TAB PO SCH ×2 (08:12→16:37)
[2018-05-11] MEDS: FUROSEMIDE 20 MG (LASIX) TAB PO SCH (08:12)
[2018-05-11] MEDS: PANTOPRAZOLE 40 MG (PROTONIX) TAB PO SCH (08:12)
[2018-05-11] MEDS: SENNOSIDES 8.6 MG (SENOKOT) TAB PO SCH ×2 (08:12→21:37)
[2018-05-11] MEDS: DILTIAZEM 240 MG (CARDIZEM CD) CAP PO SCH (08:12)
[2018-05-11] MEDS: FAMOTIDINE 20 MG (PEPCID) TABLET PO SCH ×2 (08:12→21:37)
[2018-05-11] MEDS: APIXABAN 5 MG (ELIQUIS) TABLET PO SCH ×2 (08:12→21:37)
[2018-05-11] MEDS: inSUlin DETERMIR 1 UNIT/0.01 ML (LEVEMIR) CHARGE PER UNIT SQ SCH (08:13)
[2018-05-11] MEDS: busPIRone 5 MG (BUSPAR) TAB PO SCH ×3 (08:22→21:40)
[2018-05-11 08:23] LABS: BASOPHILS % (AUTO) 0 % (0-10); EOSINOPHILS # (AUTO) 0.2 10^3/uL (0.0-0.3); EOSINOPHILS % (AUTO) 2 % (0-10); HEMATOCRIT 34 % (35-52); HEMOGLOBIN 10.5 G/DL (11.5-16.0); LYMPHOCYTES # (AUTO) 2.4 X 10^3 (1.0-4.0); LYMPHOCYTES % (AUTO) 25 % (12-44); MEAN CORPUSCULAR HEMOGLOBIN 30 PG (25-34); MEAN CORPUSCULAR HGB CONC 31 G/DL (32-36); MEAN CORPUSCULAR VOLUME 96 FL (80-99); MEAN PLATELET VOLUME 9.1 FL (7.4-10.4); MONOCYTES # (AUTO) 0.6 X 10^3 (0.0-1.0); MONOCYTES % (AUTO) 6 % (0-12); NEUTROPHILS # (AUTO) 6.4 X 10^3 (1.8-7.8); NEUTROPHILS % (AUTO) 67 % (42-75); PLATELET COUNT 298 10^3/uL (130-400); RED CELL DISTRIBUTION WIDTH 14.6 % (10.0-14.5); WHITE BLOOD COUNT 9.7 10^3/uL (4.3-11.0)
[2018-05-11 09:14] LABS: BUN/CREATININE RATIO 19; CALCIUM 8.4 MG/DL (8.5-10.1); CARBON DIOXIDE 31 MMOL/L (21-32); CHLORIDE 100 MMOL/L (98-107); CREATININE SERUM 0.64 MG/DL (0.60-1.30); GFR ESTIMATED > 60; GLUCOSE 124 MG/DL (70-105); MAGNESIUM 1.9 MG/DL (1.8-2.4); POTASSIUM 3.5 MMOL/L (3.6-5.0); SODIUM 140 MMOL/L (135-145)
--- NOTE | 2018-05-11 09:43 | NUR ---
Vanco Trough: 05/11 trough at 20. No changes to current regimen.
[2018-05-11] MEDS: VANCOMYCIN 1500 MG/NS 500 ML IVPB IV SCH ×4 (09:58→21:36)
[2018-05-11 11:22] VITALS: BP 121/58
--- NOTE | 2018-05-11 12:41 | Progress Note-Hospitalist ---
Subjective HPI/CC On Admission Date Seen by Provider: May 11, 2018 Time Seen by Provider: 11:45 Subjective/Events-last exam Patient doing well Lasix increases urinary frequency Going home hopefully tomorrow Overall has no issues Objective Exam Vital Signs Vital Signs Date Time Temp Pulse Resp B/P (MAP) Pulse Ox O2 Delivery O2 Flow Rate FiO2 05/11/18 11:22 98.4 68 20 121/58 (79) 92 Nasal Cannula 2.00 05/05/18 04:00 30 Capillary Refill : Less Than 3 SecondsLess Than 3 Seconds General Appearance: No Apparent Distress, Chronically ill, Obese Neck: Normal Inspection, Supple Respiratory: Chest Non Tender, Lungs Clear, Normal Breath Sounds, No Accessory Muscle Use, No Respiratory Distress Cardiovascular: Regular Rate, Rhythm Gastrointestinal: Normal Bowel Sounds, Non Tender, Soft Rectal: Deferred Back: No CVA Tenderness Extremity: Non Tender, No Calf Tenderness, No Pedal Edema Neurologic/Psychiatric: Alert, Oriented x3 Skin: Warm/Dry Lymphatic: No Adenopathy Results/Procedures Lab Laboratory Tests 05/11/18 06:30 05/11/18 07:30 Patient resulted labs reviewed. Assessment/Plan Assessment and Plan Assess & Plan/Chief Complaint Assessment per PCP: 1. Acute Respiratory Failure--on NC at 3L now stable 2. Postop Stridor--resolved 3. Diabetes mellitus--decrease current Levemir dose nut continue SSI due to hypoglycemia since steroids DC 4. COPD--stable 5. SVT/V Tach--resolved/stable 6. Hypotension/Hypothermia--resolved 7. Insomnia--continue doxepin 8. Weakness--continue PT/OT, SWING bed denied by insurance 9. Acute UTI/Pneumonia with Sepsis--Vancomycin restarted per pulmonology due to chills today as well as elevated WBC count and will continue on Cefepime Plan: Abx Ambulate Supportive care Doing very well Critical Care Critically Ill Patient Diagnosis/Problems Diagnosis/Problems (1) Respiratory insufficiency Status: Acute (2) Hypotension Status: Resolved Qualifiers: Hypotension type: unspecified hypotension type Qualified Codes: I95.9 - Hypotension, unspecified (3) Stenosis, cervical spine Status: Acute Clinical Quality Measures DVT/VTE Risk/Contraindication: Risk Factor Score Per Nursin RFS Level Per Nursing on Admit: 4+=Very High EDMUNDO CROWELL DO May 11, 2018 12:41
--- NOTE | 2018-05-11 15:44 | Progress Note-Cardiology ---
Cardiology SOAP Progress Note Subjective: Feels somewhat better No palp or syncope or cp Shortness of breath with exertion is improving Objective: I&O/Vital Signs 05/11/18 05/11/18 05/11/18 05/11/18 04:00 06:46 07:00 07:30 Temp 97.3 98.8 Pulse 72 66 68 Resp 22 20 B/P (MAP) 126/79 (95) 143/68 (93) Pulse Ox 93 93 93 O2 Delivery Nasal Cannula High Flow N/C Nasal Cannula O2 Flow Rate 2.00 2.00 2.00 05/11/18 05/11/18 05/11/18 05/11/18 08:00 10:21 11:22 13:00 Temp 98.4 Pulse 68 64 Resp 20 B/P (MAP) 121/58 (79) Pulse Ox 93 92 O2 Delivery High Flow N/C High Flow N/C Nasal Cannula O2 Flow Rate 2.00 2.00 2.00 05/11/18 14:37 Pulse Ox 94 O2 Delivery High Flow N/C O2 Flow Rate 2.00 05/11/18 00:00 Intake Total 920 ml Balance 920 ml Weight (Pounds): 220 Weight (Ounces): 0.0 Weight (Calculated Kilograms): 99.246915 Constitutional: AAO x 3 Respiratory: chest is bilaterally symmetric, rhonchi, other (coarse lower lobes ) Cardiovascular: regular rate-rhythm, S1 and S2, systolic murmur Gastrointestional: soft, audible bowel sounds Extremities: significant edema Neurologic/Psychiatric: grossly intact Skin: No rash, No ulcerations Results/Procedures: Labs Laboratory Tests 05/10/18 19:28: Glucometer 79 05/11/18 05:03: Glucometer 162H 05/11/18 06:30: Sodium Level 140, Potassium Level 3.5L, Chloride Level 100, Carbon Dioxide Level 31, Anion Gap 9, Blood Urea Nitrogen 12, Creatinine 0.64, Estimat Glomerular Filtration Rate > 60, BUN/Creatinine Ratio 19, Glucose Level 124H, Calcium Level 8.4L, Phosphorus Level 3.0, Magnesium Level 1.9 05/11/18 07:30: White Blood Count 9.7, Red Blood Count 3.54L, Hemoglobin 10.5L, Hematocrit 34L, Mean Corpuscular Volume 96, Mean Corpuscular Hemoglobin 30, Mean Corpuscular Hemoglobin Concent 31L, Red Cell Distribution Width 14.6H, Platelet Count 298, Mean Platelet Volume 9.1, Neutrophils (%) (Auto) 67, Lymphocytes (%) (Auto) 25, Monocytes (%) (Auto) 6, Eosinophils (%) (Auto) 2, Basophils (%) (Auto) 0, Neutrophils # (Auto) 6.4, Lymphocytes # (Auto) 2.4, Monocytes # (Auto) 0.6, Eosinophils # (Auto) 0.2, Basophils # (Auto) 0.0 05/11/18 08:30: Vancomycin Level Trough 20.0 05/11/18 11:22: Glucometer 166H Microbiology 05/02/18 Catheter Tip Culture - Final, Complete No growth 05/02/18 Influenza Types A,B Antigen (YOLIE) - Final, Complete 05/02/18 Urine Culture - Final, Complete NO GROWTH Laboratory Tests 05/10/18 05:50 05/11/18 06:30 05/11/18 07:30 A/P: Assessment: Sepsis due to UTI / pneumonia PAF with RVR associated with hypotension - converted to NSR on 04-24-18 - currently in NSR Eliquis for stroke prophylaxis S/p spinal fusion surgery and post-op resp failure Echo of 04/23/18: mod concentric LVH, LVEF 65-70%, mild left atrial enlargement, PASP 30-35 mmHg Chronic pain: chronic migraine headaches, chronic body pains and fibromyalgia. H/o labile hypertension and postural hypotension History of perioperative bradycardia (asystole) and tachycardia (ventricular fibrillation). 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 MPI of Nov 2017 showed no evidence of significant myocardial ischemia or infarction. LVEF 78% Obesity with a body mass index of approximately 37 The patient has been intolerant to statin therapy on account of chronic pain syndrome. 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 Dr Saleem following and has diagnosed restrictive lung disease Bilateral intermittent leg swelling, chornic. Venous insuff study of 02/15/16 did not show DVT or reflux in the deep venous system or valvular insuff of greater or small saphenous system or AASV Less than 40% DANIELLE stenosis, 40-59% LICA stenosis on carotid u/s of 02/03/16 Plan: * Continue regimen * Monitor labs closely * I spoke with her and answered CV-related questions ULI YOO MD FACP [facility] CCDS May 11, 2018 15:44
[2018-05-11 15:54] VITALS: BP 123/70
[2018-05-11] MEDS: PRAMIPEXOLE 0.5 MG TAB (MIRAPEX) PO SCH (16:36)
[2018-05-11 20:11] VITALS: BP 121/69
[2018-05-11] MEDS: GABAPENTIN 100 MG (NEURONTIN) CAP PO SCH (21:37)
[2018-05-11] MEDS: MELATONIN 3 MG TABLET PO SCH (21:37)
[2018-05-11] MEDS: DOXEPIN 10 MG (SINEquan) CAP PO SCH (21:40)
[2018-05-11] MEDS: diphenhydrAMINE 25 MG TAB (BENADRYL) PO PRN (21:45)
[2018-05-11] MEDS: HYDROcodone/APAP 5 MG/325 MG (LORTAB) TAB PO PRN (23:51)
[2018-05-12] VITALS: BP_SYST 127; BP_SYST 147; BP_DIAS 60; BP_DIAS 67
[2018-05-12 04:54] VITALS: BP 120/76
[2018-05-12] MEDS: MULTIVIT W/MINERALS TAB (THERAGRAN M) PO SCH (06:42)
[2018-05-12] MEDS: inSUlin ASPART (NovoLOG) 1 UNIT/0.01 ML (CHARGE PER UNIT) SQ SCH ×4 (06:42→21:37)
[2018-05-12] MEDS: KCL 8 MEQ (MICRO K) TABLET PO SCH (06:42)
[2018-05-12 07:03] LABS: BASOPHILS % (AUTO) 0 % (0-10); EOSINOPHILS # (AUTO) 0.3 10^3/uL (0.0-0.3); EOSINOPHILS % (AUTO) 3 % (0-10); HEMATOCRIT 34 % (35-52); HEMOGLOBIN 10.7 G/DL (11.5-16.0); LYMPHOCYTES # (AUTO) 2.6 X 10^3 (1.0-4.0); LYMPHOCYTES % (AUTO) 28 % (12-44); MEAN CORPUSCULAR HEMOGLOBIN 30 PG (25-34); MEAN CORPUSCULAR HGB CONC 31 G/DL (32-36); MEAN CORPUSCULAR VOLUME 96 FL (80-99); MEAN PLATELET VOLUME 8.9 FL (7.4-10.4); MONOCYTES # (AUTO) 0.6 X 10^3 (0.0-1.0); MONOCYTES % (AUTO) 7 % (0-12); NEUTROPHILS # (AUTO) 5.6 X 10^3 (1.8-7.8); NEUTROPHILS % (AUTO) 62 % (42-75); PLATELET COUNT 318 10^3/uL (130-400); RED CELL DISTRIBUTION WIDTH 14.4 % (10.0-14.5); WHITE BLOOD COUNT 9.1 10^3/uL (4.3-11.0)
[2018-05-12 07:39] LABS: BUN/CREATININE RATIO 17; CALCIUM 8.7 MG/DL (8.5-10.1); CARBON DIOXIDE 28 MMOL/L (21-32); CHLORIDE 103 MMOL/L (98-107); CREATININE SERUM 0.69 MG/DL (0.60-1.30); GFR ESTIMATED > 60; GLUCOSE 170 MG/DL (70-105); MAGNESIUM 1.7 MG/DL (1.8-2.4); PHOSPHORUS 3.5 MG/DL (2.3-4.7); POTASSIUM 3.8 MMOL/L (3.6-5.0); SODIUM 142 MMOL/L (135-145)
[2018-05-12] MEDS: RT-ALBUTEROL/IPRATROPIUM 3 ML (DUONEB) VIAL INH SCH ×4 (07:41→19:54)
[2018-05-12 08:00] VITALS: BP 139/73
[2018-05-12] MEDS: PANTOPRAZOLE 40 MG (PROTONIX) TAB PO SCH (08:48)
[2018-05-12] MEDS: meTOprolol TARTRATE 50 MG (LOPRESSOR) TAB PO SCH ×2 (08:48→21:14)
[2018-05-12] MEDS: DILTIAZEM 240 MG (CARDIZEM CD) CAP PO SCH (08:48)
[2018-05-12] MEDS: FAMOTIDINE 20 MG (PEPCID) TABLET PO SCH ×2 (08:48→21:14)
[2018-05-12] MEDS: FUROSEMIDE 20 MG (LASIX) TAB PO SCH (08:48)
[2018-05-12] MEDS: SENNOSIDES 8.6 MG (SENOKOT) TAB PO SCH ×2 (08:48→21:13)
[2018-05-12] MEDS: GABAPENTIN 300 MG (NEURONTIN) CAP PO SCH ×2 (08:48→21:13)
[2018-05-12] MEDS: MAGNESIUM OXIDE (MAG-OX)400 MG TAB PO SCH ×2 (08:48→17:31)
[2018-05-12] MEDS: busPIRone 10 MG (BUSPAR) TAB PO SCH ×3 (08:48→21:13)
[2018-05-12] MEDS: APIXABAN 5 MG (ELIQUIS) TABLET PO SCH ×2 (08:48→21:13)
[2018-05-12] MEDS: inSUlin DETERMIR 1 UNIT/0.01 ML (LEVEMIR) CHARGE PER UNIT SQ SCH (08:49)
--- NOTE | 2018-05-12 10:14 | NUR ---
CM/SS spoke with patient this day and she would have a preference for [facility] at discharge.
[2018-05-12] MEDS: VANCOMYCIN 1500 MG/NS 500 ML IVPB IV SCH ×4 (10:56→21:14)
--- NOTE | 2018-05-12 11:15 | Progress Note-Cardiology ---
Cardiology SOAP Progress Note Subjective: Sitting up in chair at the bedside. C/O fatigue this morning. Feels breathing at baseline. No c/o CP or palpitations. Objective: I&O/Vital Signs 05/12/18 05/12/18 05/12/18 05/12/18 07:01 07:10 07:41 08:00 Temp 98.0 Pulse 72 74 Resp 20 B/P (MAP) 139/73 (95) Pulse Ox 94 96 O2 Delivery High Flow N/C High Flow N/C Nasal Cannula O2 Flow Rate 2.00 2.00 2.00 05/12/18 05/12/18 05/12/18 05/12/18 12:00 12:08 13:18 16:00 Temp 97.4 96.7 Pulse 64 69 63 Resp 20 18 B/P (MAP) 137/71 (93) 121/56 (77) Pulse Ox 95 95 95 O2 Delivery Nasal Cannula High Flow N/C Nasal Cannula O2 Flow Rate 2.00 2.00 2.00 05/12/18 00:00 Intake Total 1755 ml Balance 1755 ml Weight (Pounds): 220 Weight (Ounces): 0.0 Weight (Calculated Kilograms): 99.899867 Constitutional: AAO x 3 Respiratory: chest is bilaterally symmetric, rhonchi, other (coarse lower lobes ) Cardiovascular: regular rate-rhythm, S1 and S2, systolic murmur Gastrointestional: soft, audible bowel sounds Extremities: significant edema Neurologic/Psychiatric: grossly intact Skin: No rash, No ulcerations Results/Procedures: Labs Laboratory Tests 05/11/18 20:14: Glucometer 186H 05/12/18 05:49: Glucometer 187H 05/12/18 06:50: White Blood Count 9.1, Red Blood Count 3.58L, Hemoglobin 10.7L, Hematocrit 34L, Mean Corpuscular Volume 96, Mean Corpuscular Hemoglobin 30, Mean Corpuscular Hemoglobin Concent 31L, Red Cell Distribution Width 14.4, Platelet Count 318, Mean Platelet Volume 8.9, Neutrophils (%) (Auto) 62, Lymphocytes (%) (Auto) 28, Monocytes (%) (Auto) 7, Eosinophils (%) (Auto) 3, Basophils (%) (Auto) 0, Neutrophils # (Auto) 5.6, Lymphocytes # (Auto) 2.6, Monocytes # (Auto) 0.6, Eosinophils # (Auto) 0.3, Basophils # (Auto) 0.0, Sodium Level 142, Potassium Level 3.8, Chloride Level 103, Carbon Dioxide Level 28, Anion Gap 11, Blood Urea Nitrogen 12, Creatinine 0.69, Estimat Glomerular Filtration Rate > 60, BUN/ Creatinine Ratio 17, Glucose Level 170H, Calcium Level 8.7, Phosphorus Level 3.5 , Magnesium Level 1.7L 05/12/18 11:17: Glucometer 177H 05/12/18 15:53: Glucometer 237H Microbiology 05/02/18 Catheter Tip Culture - Final, Complete No growth 05/02/18 Influenza Types A,B Antigen (YOLIE) - Final, Complete 05/02/18 Urine Culture - Final, Complete NO GROWTH A/P: Assessment: Sepsis due to UTI / pneumonia PAF with RVR associated with hypotension - converted to NSR on 04-24-18 - currently in NSR Eliquis for stroke prophylaxis S/p spinal fusion surgery and post-op resp failure Echo of 04/23/18: mod concentric LVH, LVEF 65-70%, mild left atrial enlargement, PASP 30-35 mmHg Chronic pain: chronic migraine headaches, chronic body pains and fibromyalgia. H/o labile hypertension and postural hypotension History of perioperative bradycardia (asystole) and tachycardia (ventricular fibrillation). 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 MPI of Nov 2017 showed no evidence of significant myocardial ischemia or infarction. LVEF 78% Obesity with a body mass index of approximately 37 The patient has been intolerant to statin therapy on account of chronic pain syndrome. DM II, insulin requiring, managed by [facility] maintenance supervisor 2nd shift Chronic cough of undetermined etiology. Dr Saleem following and has diagnosed restrictive lung disease Bilateral intermittent leg swelling, chornic. Venous insuff study of 02/15/16 did not show DVT or reflux in the deep venous system or valvular insuff of greater or small saphenous system or AASV Less than 40% DANIELLE stenosis, 40-59% LICA stenosis on carotid u/s of 02/03/16 Plan: * Continue regimen * Monitor labs closely * I spoke with her and answered CV-related questions Physician Assessment Physician Assessment No cp or palp or syncope; shortness of breath improving Lungs: good air entry, diminished at the bases Cor: reg Ext: no c/c/e A&R * As documented in our note above that I updated (italics) and as noted below * Continue current regimen * Monitor labs YASMANI HAMILTON [employer]IVER MACHINE OPERATOR May 12, 2018 11:15 ULI YOO MD [facility] May 12, 2018 18:32
--- NOTE | 2018-05-12 11:25 | Physical Therapy Daily Note ---
PT Daily Note-Current Subjective Pt reports feeling a little worn out from just getting shower but agreeable to working with PT. Pain Numeric Pain Scale: 0-No Pain Comment: denies pain beginning of tx, minor LBP up walking Appearance upon arrival, pt sitting up in chair, just finished shower, awake and alert. Pt's son arrived durring session and observed pt walking At end of session, pt sitting EOB talking with son and nurse, call light phone and bedside table within reach Mental Status Patient Orientation: Normal For Age Attachments: IV Transfers Therapy Code Descriptions/Definitions Functional [place] Measure: 0=Not Assessed/NA 4=Minimal Assistance 1=Total Assistance 5=Supervision or Setup 2=Maximal Assistance 6=Modified [place] 3=Moderate Assistance 7=Complete [place] Therapy Quality Codes: 6 Independent with activity with or without an assistive device 5 Patient requires set up or clean up by helper. Patient completes activity by themselves 4 Supervision or touching assist (CGA). [place] provide cues , steadying assist 3 The helper provides less than half the effort to complete the activity 2 The helper provides more than half the effort to complete the activity 1 Dependent. The helper does all the effort to complete an activity 7 Patient refused to complete or attempt activity 9 The patient did not perform the activity before the current illness or injury 88 Not attempted due to Medical conditions or safety concerns Transfers (B, C, W/C) (FIM): 6 Sit to/from Stand: 6 Pt demonstrating safe and correct technique with all transfers performed Weight Bearing Right Lower Extremity: Right Full Weight Bearing Left Lower Extremity: Left Full Weight Bearing Gait Training Gait (FIM): 5 Distance (FIM): 3=150 ft Distance: 250' Gait Level of Assist: 5 Gait Persons Needed: 1 Gait Assistive Device: None Good gait speed, decreased step length and height, pt declines using walker at all stating it trips her up. Noted slight unsteady episode x1 self corrected, no LOB Exercises Performed standing activity without UE support ~5 minutes Treatments Gait transfer safety to improve activity tolerance, balance, strength, functional mobility Assessment Current Status: Good Progress PT Short Term Goals Short Term Goals Time Frame: May 10, 2018 Transfers (B,C,W/C) (FIM): 4 Gait (FIM): 1 Distance (FIM): 1=up to 49 ft Gait Distance Comment: 25' Gait Level of Assist: 4 Gait Assistive Device: FWW PT Plan Treatment/Plan Treatment Plan: Continue Plan of Care Treatment Plan: Bed Mobility, Education, Functional Activity Eileen, Functional Strength, Gait, Safety, Therapeutic Exercise, Transfers Treatment Duration: May 10, 2018 Frequency: 6 times per week Estimated Hrs Per Day: .25 hour per day Patient and/or Family Agrees t: Yes Time/GCodes Time In: 1101 Time Out: 1118 Total Billed Treatment Time: 17 Total Billed Treatment 1 visit, GT x 1 unit SKY PATINO PTA May 12, 2018 11:25
[2018-05-12 12:00] VITALS: BP 137/71
--- NOTE | 2018-05-12 13:37 | Occupational Ther Daily Note ---
OT Current Status-Daily Note Subjective Pt alert, lying in bed. Pt agrees to therapy. No c/o pain. Pt states that she might go home Saturday or . Mental Status/Objective Patient Orientation: Person, Place, Time, Situation Therapy Code Descriptions/Definitions Functional [place] Measure: 0=Not Assessed/NA 4=Minimal Assistance 1=Total Assistance 5=Supervision or Setup 2=Maximal Assistance 6=Modified [place] 3=Moderate Assistance 7=Complete [place] Attachments: IV, Oxygen Other Treatment Pt stated that she had already had a shower today. Pt able to complete own shower, assist to gather supplies. Pt given medium resistance theraband with HEP. Pt able to complete 2 sets 5 reps of each exercise. Pt did get slightly SOA and took recovery break when necessary. After therapy, pt lying in bed with call light/phone in reach. Visitor present in room. All needs met in room. Education OT Patient Education: Exercise program Teaching Recipient: Patient Teaching Methods: Demonstration, Handout, Discussion Response to Teaching: Verbalize Understanding, Return Demonstration OT Short Term Goals Short Term Goals Time Frame: May 19, 2018 Upper Body Dressing(FIM): 5 Lower Body Dressing(FIM): 5 Toileting(FIM): 5 Transfers (B,C,W/C) (FIM): 4 Toilet/Commode Transfer(FIM): 5 Additional Short Term Goals: 1-Demonstrate ADL Tasks, 2-Verbalize Understanding , 3-ImproveStrength/Eileen 1=Demonstrate adherence to instructed precautions during ADL tasks. 2=Patient will verbalize/demonstrate understanding of assistive devices/ modifications for ADL. 3=Patient will improve strength/tolerance for activity to enable patient to perform ADL's. OT Custodial Goals Custodial Goals Time Frame: Jun 02, 2018 Eating (FIM): 7 Grooming(FIM): 7 Bathing(FIM): 7 Bathing Location: L Arm, R Arm, L Upper Leg, R Upper Leg, L Lower Leg ( including foot), R Lower Leg (including foot), Chest, Abdomen, Buttocks, Perineal Area Upper Body Dressing(FIM): 6 Lower Body Dressing(FIM): 6 Toileting(FIM): 6 Transfers (B,C,W/C) (FIM): 6 Toilet/Commode Transfer(FIM): 6 Additional Goals: 1-Demonstrate ADL Tasks, 2-Verbalize Understanding, 3- ImproveStrength/Eileen 1=Demonstrate adherence to instructed precautions during ADL tasks. 2=Patient will verbalize/demonstrate understanding of assistive devices/ modifications for ADL. 3=Patient will improve strength/tolerance for activity to enable patient to perform ADL's. OT Education/Plan Discharge Recommendations Plan/Recommendations: Continue POC Treatment Plan/Plan of Care Patient would benefit from OT for education, treatment and training to promote independence in ADL's, mobility, safety and/or upper extremity function for ADL' s. Plan of Care: ADL Retraining, Functional Mobility, UE Funct Exercise/Act, UE Neuromus Re-Ed/Coord Treatment Duration: Jun 02, 2018 Frequency: 5 times per week Estimated Hrs Per Day: .5 hour per day Agreement: Yes Rehab Potential: Good Time/GCodes Start Time: 13:15 Stop Time: 13:30 Total Time Billed (hr/min): 15 Billed Treatment Time 1 visit-EX 1 (15 min) ALYSHA CHIANG May 12, 2018 13:37
--- NOTE | 2018-05-12 14:28 | NUR ---
F/U with [facility] manufacturers representative Alejandro again to obtain the denial letter. He reports that he thought that he sent that via email. I have now received this letter et will work with care management to scan this into her account.
[2018-05-12 16:00] VITALS: BP 121/56
--- NOTE | 2018-05-12 16:19 | Pulmonary Progress Note ---
Subjective Time Seen by a Provider: 16:19 Subjective/Events-last exam Pt feels improved. Sepsis Event Evaluation Height, Weight, BMI Height: 5'5.00" Weight: 220lbs. 0.0oz. 99.801311tv; 36.6 BMI Method:Estimated Exam Exam Vital Signs Date Time Temp Pulse Resp B/P (MAP) Pulse Ox O2 Delivery O2 Flow Rate FiO2 05/12/18 13:18 69 05/12/18 12:08 95 High Flow N/C 2.00 05/12/18 12:00 97.4 64 20 137/71 (93) 95 Nasal Cannula 2.00 05/12/18 08:00 98.0 74 20 139/73 (95) 96 Nasal Cannula 2.00 05/12/18 07:41 94 High Flow N/C 2.00 05/12/18 07:01 72 05/12/18 04:54 97.8 62 14 120/76 (91) 90 Nasal Cannula 2.00 05/12/18 01:00 60 05/12/18 00:00 97.0 69 18 127/60 (82) 95 Nasal Cannula 2.00 05/11/18 20:11 98.3 75 16 121/69 (86) 94 Nasal Cannula 2.00 05/11/18 20:00 High Flow N/C 2.00 05/11/18 19:00 78 05/11/18 18:48 94 High Flow N/C 2.00 I & O 05/12/18 07:00 Intake Total 1855 ml Balance 1855 ml Height & Weight Height: 5'5.00" Weight: 220lbs. 0.0oz. 99.194494as; 36.6 BMI Method:Estimated General Appearance: No Apparent Distress, Chronically ill, Obese Neck: Normal Inspection, Supple Respiratory: Chest Non Tender, Lungs Clear, Normal Breath Sounds, No Accessory Muscle Use, No Respiratory Distress Cardiovascular: Regular Rate, Rhythm Capillary Refill: Less Than 3 Seconds Gastrointestinal: normal bowel sounds, non tender, soft Extremity: Non Tender, No Calf Tenderness, No Pedal Edema Neurologic/Psychiatric: Alert, Oriented x3 Skin: Warm/Dry Lymphatic: No Adenopathy Results Lab Laboratory Tests 05/11/18 06:30 05/11/18 07:30 05/12/18 06:50 Assessment/Plan Assessment/Plan s/p acute respiratory failure - pt has home 02 PNA with Leukocytosis - persistent -Vanco- can be switched to PO zyvox after discharge for total of 10days treatment -Continue Vanco S/p C5-C6 fusion 04/22 Afib - -Cardiology following Hx of laryngal spasms -Ativan PRN HX of cardiac arrest 2010 Last EF 50-55% CAD Obesity THERESA COOK DO May 12, 2018 16:19
[2018-05-12] MEDS: PRAMIPEXOLE 0.5 MG TAB (MIRAPEX) PO SCH (17:31)
--- NOTE | 2018-05-12 18:13 | Progress Note (SOAP) ---
Subjective Date Seen by a Provider: May 12, 2018 Time Seen by a Provider: 12:25 Subjective/Events-last exam Fwup Acute Post-Op Respiratory Failure, Stridor/Laryngospasm, COPD, Post-op SVT /V Tach, Diabetes mellitus--insulin requiring, insomnia, weakness/fatigue, UTI/ pneumonia with sepsis. C/O [place] but otherwise feels like getting a little stronger. Did chill last night. Objective Exam Vital Signs Date Time Temp Pulse Resp B/P (MAP) Pulse Ox O2 Delivery O2 Flow Rate FiO2 05/12/18 16:00 96.7 63 18 121/56 (77) 95 Nasal Cannula 2.00 05/12/18 13:18 69 05/12/18 12:08 95 High Flow N/C 2.00 05/12/18 12:00 97.4 64 20 137/71 (93) 95 Nasal Cannula 2.00 05/12/18 08:00 98.0 74 20 139/73 (95) 96 Nasal Cannula 2.00 05/12/18 07:41 94 High Flow N/C 2.00 05/12/18 07:10 High Flow N/C 2.00 05/12/18 07:01 72 05/12/18 04:54 97.8 62 14 120/76 (91) 90 Nasal Cannula 2.00 05/12/18 01:00 60 05/12/18 00:00 97.0 69 18 127/60 (82) 95 Nasal Cannula 2.00 05/11/18 20:11 98.3 75 16 121/69 (86) 94 Nasal Cannula 2.00 05/11/18 20:00 High Flow N/C 2.00 05/11/18 19:00 78 05/11/18 18:48 94 High Flow N/C 2.00 I & O 05/12/18 07:00 Intake Total 1855 ml Balance 1855 ml Capillary Refill : Less Than 3 SecondsLess Than 3 Seconds General Appearance: No Apparent Distress Respiratory: Lungs Clear Cardiovascular: Regular Rate, Rhythm Gastrointestinal: normal bowel sounds, non tender, soft Extremity: Non Tender, No Calf Tenderness, No Pedal Edema Neurologic/Psychiatric: Alert, Oriented x3 Skin: Warm/Dry Results Lab Laboratory Tests 05/11/18 20:14: Glucometer 186H 05/12/18 05:49: Glucometer 187H 05/12/18 06:50: White Blood Count 9.1, Red Blood Count 3.58L, Hemoglobin 10.7L, Hematocrit 34L, Mean Corpuscular Volume 96, Mean Corpuscular Hemoglobin 30, Mean Corpuscular Hemoglobin Concent 31L, Red Cell Distribution Width 14.4, Platelet Count 318, Mean Platelet Volume 8.9, Neutrophils (%) (Auto) 62, Lymphocytes (%) (Auto) 28, Monocytes (%) (Auto) 7, Eosinophils (%) (Auto) 3, Basophils (%) (Auto) 0, Neutrophils # (Auto) 5.6, Lymphocytes # (Auto) 2.6, Monocytes # (Auto) 0.6, Eosinophils # (Auto) 0.3, Basophils # (Auto) 0.0, Sodium Level 142, Potassium Level 3.8, Chloride Level 103, Carbon Dioxide Level 28, Anion Gap 11, Blood Urea Nitrogen 12, Creatinine 0.69, Estimat Glomerular Filtration Rate > 60, BUN/ Creatinine Ratio 17, Glucose Level 170H, Calcium Level 8.7, Phosphorus Level 3.5 , Magnesium Level 1.7L 05/12/18 11:17: Glucometer 177H 05/12/18 15:53: Glucometer 237H Microbiology 05/02/18 Catheter Tip Culture - Final, Complete No growth 05/02/18 Influenza Types A,B Antigen (YOLIE) - Final, Complete 05/02/18 Urine Culture - Final, Complete NO GROWTH Assessment/Plan Assessment/Plan Assess & Plan/Chief Complaint 1. Acute Respiratory Failure--on NC at 3L 2. Postop Stridor--resolved 3. Diabetes mellitus--continue current levemir dose and continue SSI 4. COPD--stable 5. SVT/V Tach--resolved/stable 6. Hypotension/Hypothermia--resolved 7. Insomnia--continue doxepin 8. Weakness--continue PT/OT, SWING bed denied by insurance 9. Acute UTI/Pneumonia with Sepsis--Vancomycin for total of 10 days so needs to continue through at least 05/13/18 Clinical Quality Measures Admission Status Admission Dx 1. Post-op stridor with unstable airway--sedated and intubated on ventilator 2. 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 Hypertensive Urgency with SVT--responded to IV cardizem, likely in response to racemic epi 4. Cervical Spinal Stenosis with Anterior C5-C6 fusion--check stat CT of soft tissues to rule out hematoma DVT/VTE Risk/Contraindication: Risk Factor Score Per Nursin RFS Level Per Nursing on Admit: 4+=Very High NANNETTE REVELES DO May 12, 2018 18:13
[2018-05-12 20:00] VITALS: BP 143/63
[2018-05-12] MEDS: GABAPENTIN 100 MG (NEURONTIN) CAP PO SCH (21:13)
[2018-05-12] MEDS: MELATONIN 3 MG TABLET PO SCH (21:14)
[2018-05-12] MEDS: diphenhydrAMINE 25 MG TAB (BENADRYL) PO PRN (21:23)
[2018-05-12] MEDS: DOXEPIN 10 MG (SINEquan) CAP PO SCH (21:23)
[2018-05-13] VITALS: BP 118/68
[2018-05-13] MEDS: HYDROcodone/APAP 5 MG/325 MG (LORTAB) TAB PO PRN ×2 (00:31→05:20)
[2018-05-13 04:00] VITALS: BP 122/80
[2018-05-13] MEDS: CYCLOBENZAPRINE 10 MG (FLEXERIL) TAB PO PRN (05:20)
[2018-05-13 06:56] LABS: BASOPHILS % (AUTO) 0 % (0-10); EOSINOPHILS # (AUTO) 0.4 10^3/uL (0.0-0.3); EOSINOPHILS % (AUTO) 4 % (0-10); HEMATOCRIT 37 % (35-52); HEMOGLOBIN 11.4 G/DL (11.5-16.0); LYMPHOCYTES # (AUTO) 2.5 X 10^3 (1.0-4.0); LYMPHOCYTES % (AUTO) 29 % (12-44); MEAN CORPUSCULAR HEMOGLOBIN 30 PG (25-34); MEAN CORPUSCULAR HGB CONC 31 G/DL (32-36); MEAN CORPUSCULAR VOLUME 96 FL (80-99); MEAN PLATELET VOLUME 9.1 FL (7.4-10.4); MONOCYTES # (AUTO) 0.7 X 10^3 (0.0-1.0); MONOCYTES % (AUTO) 8 % (0-12); NEUTROPHILS # (AUTO) 5.1 X 10^3 (1.8-7.8); NEUTROPHILS % (AUTO) 59 % (42-75); PLATELET COUNT 291 10^3/uL (130-400); RED CELL DISTRIBUTION WIDTH 14.1 % (10.0-14.5); WHITE BLOOD COUNT 8.7 10^3/uL (4.3-11.0)
[2018-05-13] MEDS: MULTIVIT W/MINERALS TAB (THERAGRAN M) PO SCH (07:05)
[2018-05-13] MEDS: KCL 8 MEQ (MICRO K) TABLET PO SCH (07:06)
[2018-05-13] MEDS: inSUlin ASPART (NovoLOG) 1 UNIT/0.01 ML (CHARGE PER UNIT) SQ SCH ×4 (07:06→20:47)
[2018-05-13 07:17] LABS: BUN/CREATININE RATIO 15; CALCIUM 8.8 MG/DL (8.5-10.1); CARBON DIOXIDE 27 MMOL/L (21-32); CHLORIDE 101 MMOL/L (98-107); CREATININE SERUM 0.67 MG/DL (0.60-1.30); GFR ESTIMATED > 60; GLUCOSE 137 MG/DL (70-105); MAGNESIUM 1.6 MG/DL (1.8-2.4); PHOSPHORUS 3.5 MG/DL (2.3-4.7); POTASSIUM 3.8 MMOL/L (3.6-5.0); SODIUM 140 MMOL/L (135-145)
[2018-05-13] MEDS: RT-ALBUTEROL/IPRATROPIUM 3 ML (DUONEB) VIAL INH SCH ×4 (07:19→18:52)
[2018-05-13] MEDS: meTOprolol TARTRATE 50 MG (LOPRESSOR) TAB PO SCH ×2 (07:57→20:47)
[2018-05-13] MEDS: FUROSEMIDE 20 MG (LASIX) TAB PO SCH (07:57)
[2018-05-13] MEDS: MAGNESIUM OXIDE (MAG-OX)400 MG TAB PO SCH ×2 (07:57→17:20)
[2018-05-13] MEDS: APIXABAN 5 MG (ELIQUIS) TABLET PO SCH ×2 (07:57→20:47)
[2018-05-13] MEDS: FAMOTIDINE 20 MG (PEPCID) TABLET PO SCH ×2 (07:57→20:47)
[2018-05-13] MEDS: DILTIAZEM 240 MG (CARDIZEM CD) CAP PO SCH (07:57)
[2018-05-13] MEDS: SENNOSIDES 8.6 MG (SENOKOT) TAB PO SCH ×2 (07:57→20:47)
[2018-05-13] MEDS: PANTOPRAZOLE 40 MG (PROTONIX) TAB PO SCH (07:57)
[2018-05-13] MEDS: busPIRone 10 MG (BUSPAR) TAB PO SCH ×3 (07:57→20:47)
[2018-05-13] MEDS: inSUlin DETERMIR 1 UNIT/0.01 ML (LEVEMIR) CHARGE PER UNIT SQ SCH (07:59)
[2018-05-13 08:00] VITALS: BP 118/69
[2018-05-13] MEDS ORDERED: TROUGH ORDER-PHARMACY XX NR (08:00)
[2018-05-13] MEDS: GABAPENTIN 300 MG (NEURONTIN) CAP PO SCH ×2 (08:04→20:47)
--- NOTE | 2018-05-13 09:30 | NUR ---
Groin and abdominal folds are red and yeasty. Magnesium is 1.6. Call to Dr. Reid's office. Message left with director of consumer marketing who will "pass it on to Dr. Reid". Will await return call.
--- NOTE | 2018-05-13 10:04 | Physical Therapy Daily Note ---
PT Daily Note-Current Subjective Pt reports feeling ok today, a little tired. Agreeable to PT treatment Pain Numeric Pain Scale: 0-No Pain Appearance Pt sitting up in chair awake and alert upon SURGICAL ENDOSCOPIST's arrival. 2L O2/nc used entire visit. Pt sitting up in chair, some fatigue, with call light, phone and bedside table within reach. Nursing staff present Mental Status Patient Orientation: Normal For Age Attachments: [place], Oxygen Transfers Therapy Code Descriptions/Definitions Functional [place] Measure: 0=Not Assessed/NA 4=Minimal Assistance 1=Total Assistance 5=Supervision or Setup 2=Maximal Assistance 6=Modified [place] 3=Moderate Assistance 7=Complete [place] Therapy Quality Codes: 6 Independent with activity with or without an assistive device 5 Patient requires set up or clean up by helper. Patient completes activity by themselves 4 Supervision or touching assist (CGA). [place] provide cues , steadying assist 3 The helper provides less than half the effort to complete the activity 2 The helper provides more than half the effort to complete the activity 1 Dependent. The helper does all the effort to complete an activity 7 Patient refused to complete or attempt activity 9 The patient did not perform the activity before the current illness or injury 88 Not attempted due to Medical conditions or safety concerns Transfers (B, C, W/C) (FIM): 6 Sit to/from Stand: 6 Pt demonstrating proper technique and safety with all transfers performed Weight Bearing Right Lower Extremity: Right Full Weight Bearing Left Lower Extremity: Left Full Weight Bearing Gait Training Gait (FIM): 5 Distance (FIM): 3=150 ft Distance: >400' Gait Level of Assist: 5 Gait Persons Needed: 1 Gait Assistive Device: None No LOB or unsteadiness during gait distance without AD. Noted some fatigue and SOA at end of distance. Recovery within 3 minutes Treatments Gait transfer safety to improve activity tolerance, functional mobility, strength and decrease risk of falls Assessment Current Status: Good Progress Pt continues to increase gait distance each visit with improved gait quality PT Short Term Goals Short Term Goals Time Frame: May 10, 2018 Transfers (B,C,W/C) (FIM): 4 Gait (FIM): 1 Distance (FIM): 1=up to 49 ft Gait Distance Comment: 25' Gait Level of Assist: 4 Gait Assistive Device: FWW PT Plan Treatment/Plan Treatment Plan: Continue Plan of Care Treatment Plan: Bed Mobility, Education, Functional Activity Eileen, Functional Strength, Gait, Safety, Therapeutic Exercise, Transfers Treatment Duration: May 10, 2018 Frequency: 6 times per week Estimated Hrs Per Day: .25 hour per day Patient and/or Family Agrees t: Yes Safety Risks/Education Patient Education: Gait Training, Transfer Techniques, Safety Issues Teaching Recipient: Patient Teaching Methods: Discussion Response to Teaching: Verbalize Understanding Time/GCodes Time In: 934 Time Out: 950 Total Billed Treatment Time: 16 Total Billed Treatment 1 visit, GT x 1 unit SKY PATINO PTA May 13, 2018 10:04
--- NOTE | 2018-05-13 10:25 | NUR ---
Report to SHRAVAN Domingo.
--- NOTE | 2018-05-13 10:36 | Diagnostic Imaging Report ---
Indication: Evaluate PICC line placement. Comparison made with prior examination from 05/09/18. FINDINGS: There is cardiomegaly. There is a left pleural effusion. There is no pneumothorax. The mediastinum is unremarkable. Pacemaker overlies left hemithorax. The right upper extremity PICC line is looped upon itself in the right subclavian vein. Impression: Right extremity PICC line is looped upon itself in the right subclavian vein. Cardiomegaly and a small left pleural effusion. Dictated by: Dictated on workstation # [id number]
--- NOTE | 2018-05-13 11:40 | NUR ---
LILO, RN INFORMED THIS RN THAT SHE HAD RECEIVED TELEPHONE ORDER FROM DR. REVELES TO JUST INSERT PERIPHERAL LINE DUE TO PROBABLE DISCHARGING 05/14/2018, THIS RN PROCEEDED TO INSERT PERIPHERAL BY ULTRASOUND 20G 1 3/4" LEFT FOREARM AT 1150.
[2018-05-13 12:00] VITALS: BP 106/73
[2018-05-13] MEDS: VANCOMYCIN 1250 MG/NS 250 ML IVPB IV SCH ×4 (12:15→20:46)
--- NOTE | 2018-05-13 13:12 | Occupational Ther Daily Note ---
OT Current Status-Daily Note Subjective Pt alert, sitting in recliner. Pt agrees to therapy. No c/o pain. Pt stated that the are going to have to put a new central line in. Mental Status/Objective Patient Orientation: Person, Place, Time, Situation Therapy Code Descriptions/Definitions Functional [place] Measure: 0=Not Assessed/NA 4=Minimal Assistance 1=Total Assistance 5=Supervision or Setup 2=Maximal Assistance 6=Modified [place] 3=Moderate Assistance 7=Complete [place] Attachments: Central Line, Oxygen ADL-Treatment Pt stated that she had already taken shower. Nrsg brings her towels, gown and covers IV site. According to pt, she completes bathing, dressing and grooming by self. Other Treatment Pt completed UE exercises using medium resistance theraband. Pt demonstrates good technique with HEP for UE exercises. Pt completes exercises with BARRERA for skilled intervention for UE exercises, 2 sets 10 reps of each. Pt states that she feels it in her UE's and shows only slight SOA during therapy. After therapy, pt sitting in recliner with call light/phone in reach. All needs met in room. Education OT Patient Education: Exercise program, Home exercise program Teaching Recipient: Patient Teaching Methods: Demonstration, Discussion Response to Teaching: Verbalize Understanding, Return Demonstration OT Short Term Goals Short Term Goals Time Frame: May 19, 2018 Upper Body Dressing(FIM): 5 Lower Body Dressing(FIM): 5 Toileting(FIM): 5 Transfers (B,C,W/C) (FIM): 4 Toilet/Commode Transfer(FIM): 5 Additional Short Term Goals: 1-Demonstrate ADL Tasks, 2-Verbalize Understanding , 3-ImproveStrength/Eileen 1=Demonstrate adherence to instructed precautions during ADL tasks. 2=Patient will verbalize/demonstrate understanding of assistive devices/ modifications for ADL. 3=Patient will improve strength/tolerance for activity to enable patient to perform ADL's. OT Wildland Fire Fighter Specialist Goals Wildland Fire Fighter Specialist Goals Time Frame: Jun 02, 2018 Eating (FIM): 7 Grooming(FIM): 7 Bathing(FIM): 7 Bathing Location: L Arm, R Arm, L Upper Leg, R Upper Leg, L Lower Leg ( including foot), R Lower Leg (including foot), Chest, Abdomen, Buttocks, Perineal Area Upper Body Dressing(FIM): 6 Lower Body Dressing(FIM): 6 Toileting(FIM): 6 Transfers (B,C,W/C) (FIM): 6 Toilet/Commode Transfer(FIM): 6 Additional Goals: 1-Demonstrate ADL Tasks, 2-Verbalize Understanding, 3- ImproveStrength/Eileen 1=Demonstrate adherence to instructed precautions during ADL tasks. 2=Patient will verbalize/demonstrate understanding of assistive devices/ modifications for ADL. 3=Patient will improve strength/tolerance for activity to enable patient to perform ADL's. OT Education/Plan Discharge Recommendations Plan/Recommendations: Continue POC Treatment Plan/Plan of Care Patient would benefit from OT for education, treatment and training to promote independence in ADL's, mobility, safety and/or upper extremity function for ADL' s. Plan of Care: ADL Retraining, Functional Mobility, UE Funct Exercise/Act, UE Neuromus Re-Ed/Coord Treatment Duration: Jun 02, 2018 Frequency: 5 times per week Estimated Hrs Per Day: .5 hour per day Agreement: Yes Rehab Potential: Good Time/GCodes Start Time: 10:45 Stop Time: 11:00 Total Time Billed (hr/min): 15 Billed Treatment Time 1 visit-EX 1 (15 min) ALYSHA CHIANG May 13, 2018 13:12
[2018-05-13 15:46] VITALS: BP 116/67
--- NOTE | 2018-05-13 16:10 | Pulmonary Progress Note ---
Sepsis Event Evaluation Height, Weight, BMI Height: 5'5.00" Weight: 220lbs. 0.0oz. 99.724661ky; 36.6 BMI Method:Estimated Exam Exam Vital Signs Date Time Temp Pulse Resp B/P (MAP) Pulse Ox O2 Delivery O2 Flow Rate FiO2 05/13/18 15:46 96.4 63 16 116/67 (83) 97 Nasal Cannula 2.00 05/13/18 15:00 95 High Flow N/C 2.00 05/13/18 12:00 97.7 60 20 106/73 (84) 95 Nasal Cannula 2.00 05/13/18 11:00 High Flow N/C 2.00 05/13/18 08:53 High Flow N/C 2.00 05/13/18 08:00 97.9 66 20 118/69 (85) 95 Nasal Cannula 2.00 05/13/18 07:19 96 High Flow N/C 2.00 05/13/18 07:12 61 05/13/18 04:00 97.3 59 20 122/80 (94) 97 High Flow N/C 2.00 05/13/18 01:00 60 05/13/18 00:00 96.8 68 18 118/68 (85) 96 High Flow N/C 2.00 05/12/18 20:00 97.3 71 20 143/63 (89) 96 Nasal Cannula 2.00 05/12/18 20:00 High Flow N/C 2.00 05/12/18 19:54 95 High Flow N/C 2.00 05/12/18 19:36 70 I & O 05/13/18 07:00 Intake Total 3720 ml Balance 3720 ml Height & Weight Height: 5'5.00" Weight: 220lbs. 0.0oz. 99.858593qd; 36.6 BMI Method:Estimated General Appearance: No Apparent Distress Neck: Normal Inspection, Supple Respiratory: Lungs Clear Cardiovascular: Regular Rate, Rhythm Capillary Refill: Less Than 3 Seconds Gastrointestinal: normal bowel sounds, non tender, soft Extremity: Non Tender, No Calf Tenderness, No Pedal Edema Neurologic/Psychiatric: Alert, Oriented x3 Skin: Warm/Dry Lymphatic: No Adenopathy Results Lab Laboratory Tests 05/12/18 06:50 05/13/18 06:44 Assessment/Plan Assessment/Plan s/p acute respiratory failure - pt has home 02 PNA with Leukocytosis - persistent -Vanco- can be switched to PO zyvox after discharge for total of 10days treatment -Continue Vanco S/p C5-C6 fusion 04/22 Afib - -Cardiology following Hx of laryngal spasms -Ativan PRN HX of cardiac arrest 2010 Last EF 50-55% CAD Obesity THERESA COOK DO May 13, 2018 16:10
[2018-05-13] MEDS ORDERED: fluCOnazole (DIFLUCAN) 100 MG TAB PO NR (17:00)
--- NOTE | 2018-05-13 17:04 | Progress Note (SOAP) ---
Subjective Date Seen by a Provider: May 13, 2018 Time Seen by a Provider: 12:45 Subjective/Events-last exam Fwup Acute Post-Op Respiratory Failure, Stridor/Laryngospasm, COPD, Post-op SVT /V Tach, Diabetes mellitus--insulin requiring, insomnia, weakness/fatigue, UTI/ pneumonia with sepsis. No chills overnight. Nurse reports yeast to groin/ pannus area. Objective Exam Vital Signs Date Time Temp Pulse Resp B/P (MAP) Pulse Ox O2 Delivery O2 Flow Rate FiO2 05/13/18 15:46 96.4 63 16 116/67 (83) 97 Nasal Cannula 2.00 05/13/18 15:00 95 High Flow N/C 2.00 05/13/18 12:00 97.7 60 20 106/73 (84) 95 Nasal Cannula 2.00 05/13/18 11:00 High Flow N/C 2.00 05/13/18 08:53 High Flow N/C 2.00 05/13/18 08:00 97.9 66 20 118/69 (85) 95 Nasal Cannula 2.00 05/13/18 07:19 96 High Flow N/C 2.00 05/13/18 07:12 61 05/13/18 04:00 97.3 59 20 122/80 (94) 97 High Flow N/C 2.00 05/13/18 01:00 60 05/13/18 00:00 96.8 68 18 118/68 (85) 96 High Flow N/C 2.00 05/12/18 20:00 97.3 71 20 143/63 (89) 96 Nasal Cannula 2.00 05/12/18 20:00 High Flow N/C 2.00 05/12/18 19:54 95 High Flow N/C 2.00 05/12/18 19:36 70 I & O 05/13/18 07:00 Intake Total 3720 ml Balance 3720 ml Capillary Refill : Less Than 3 SecondsLess Than 3 Seconds General Appearance: No Apparent Distress Neck: Supple Respiratory: Lungs Clear Cardiovascular: Regular Rate, Rhythm Extremity: Non Tender, No Calf Tenderness, No Pedal Edema Neurologic/Psychiatric: Alert, Oriented x3 Skin: Warm/Dry Results Lab Laboratory Tests 05/12/18 19:52: Glucometer 167H 05/13/18 06:31: Glucometer 134H 05/13/18 06:44: White Blood Count 8.7, Red Blood Count 3.85L, Hemoglobin 11.4L, Hematocrit 37, Mean Corpuscular Volume 96, Mean Corpuscular Hemoglobin 30, Mean Corpuscular Hemoglobin Concent 31L, Red Cell Distribution Width 14.1, Platelet Count 291, Mean Platelet Volume 9.1, Neutrophils (%) (Auto) 59, Lymphocytes (%) (Auto) 29, Monocytes (%) (Auto) 8, Eosinophils (%) (Auto) 4, Basophils (%) (Auto) 0, Neutrophils # (Auto) 5.1, Lymphocytes # (Auto) 2.5, Monocytes # (Auto) 0.7, Eosinophils # (Auto) 0.4H, Basophils # (Auto) 0.0, Sodium Level 140, Potassium Level 3.8, Chloride Level 101, Carbon Dioxide Level 27, Anion Gap 12, Blood Urea Nitrogen 10, Creatinine 0.67, Estimat Glomerular Filtration Rate > 60, BUN/ Creatinine Ratio 15, Glucose Level 137H, Calcium Level 8.8, Phosphorus Level 3.5 , Magnesium Level 1.6L 05/13/18 08:44: Vancomycin Level Trough 19.9 05/13/18 11:19: Glucometer 209H 05/13/18 15:45: Glucometer 141H Microbiology 05/02/18 Catheter Tip Culture - Final, Complete No growth 05/02/18 Influenza Types A,B Antigen (YOLIE) - Final, Complete 05/02/18 Urine Culture - Final, Complete NO GROWTH Assessment/Plan Assessment/Plan Assess & Plan/Chief Complaint 1. Acute Respiratory Failure--on NC at 3L 2. Postop Stridor--resolved 3. Diabetes mellitus--continue current levemir dose and continue SSI 4. COPD--stable 5. SVT/V Tach--resolved/stable 6. Hypotension/Hypothermia--resolved 7. Insomnia--continue doxepin 8. Weakness--continue PT/OT, SWING bed denied by insurance 9. Acute UTI/Pneumonia with Sepsis--Vancomycin for total of 10 days so needs to continue through at least 05/13/18--DC plans for tomorrow 10. Intertrigo--diflucan x1 and start miconazole powder Clinical Quality Measures Admission Status Admission Dx 1. Post-op stridor with unstable airway--sedated and intubated on ventilator 2. 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 Hypertensive Urgency with SVT--responded to IV cardizem, likely in response to racemic epi 4. Cervical Spinal Stenosis with Anterior C5-C6 fusion--check stat CT of soft tissues to rule out hematoma DVT/VTE Risk/Contraindication: Risk Factor Score Per Nursin RFS Level Per Nursing on Admit: 4+=Very High NANNETTE REVELES DO May 13, 2018 17:04
[2018-05-13] MEDS ORDERED: MICO90PO TOP (17:09)
[2018-05-13] MEDS ORDERED: DOXE10CA29 PO (17:11)
--- NOTE | 2018-05-13 17:15 | D/C HH Face to Face Order ---
D/C Face to Face Orders Instructions for Patient Via [facility], Patient Instructions/FollowUp: Fwup with me in 1 week Physician to follow Patient: [place] Discharge Diet for Home: ADA Diet, Cardiac Diet Patient Data-Allergies,Ht & Wt Patient Allergies: Coded Allergies: oxycodone (Verified Allergy, Mild, 05/04/18) HALLUCINATIONS Penicillins (Unverified Allergy, Unknown, Pt has received Cefepime & Ceftriaxone in the past w/o issue, 01/18/17) Sulfa (Sulfonamide Antibiotics) (Verified Allergy, Unknown, 06/08/16) aspirin (Verified Adverse Reaction, Mild, ASPIRIN SENSITIVE, 06/08/16) sumatriptan (Verified Adverse Reaction, Mild, PALPITATIONS, 06/08/16) Height (Feet): 5 Height (Inches): 5.00 Weight (Pounds): 220 Weight (Ounces): 0.0 Home Health Need/Face to Face Date of Face to Face: May 14, 2018 Clinical Findings: Generalized weakness and fatigue, Muscle weakness, Shortness of breath I have seen Pt [id number]: Yes Discharged To: Home Diagnosis/Conditions: S/P Cervical Fusion Pneumonia/UTI with Sepsis COPD DM II--insulin requiring Weakness Patient is Homebound due to: Muscle weakness, Shortness of breath/distress Homebound Status Due to the above stated illness, injury or surgical procedure (medical condition or diagnosis) and associated clinical findings, the patient is homebound because of his/her inability to leave home except with aid of a supportive device and/or person AND leaving the home requires a considerable and taxing effort or is medically contraindicated. Pt req the following assistanc: [facility] Nursing Orders Home Health Services Order: Nursing Services, Physical Therapy-Evaluate & Treat Home Health Infusion Therapy Line Start Date: May 13, 2018 Line Start Time: 1150 Site Location: Forearm Therapy Orders Therapy Specific Orders: Eval assistive deivces, Teach enviro modifications/ safety, Increase strength/endurance Certify Stmt I certify that this patient is under my care and that I, a nurse practitioner or a physician; a accountant assistant working with me, had a face to face encounter that - meets the physician face to face encounter requirements with this patient as dated. NANNETTE REVELES DO May 13, 2018 17:15
[2018-05-13] MEDS: PRAMIPEXOLE 0.5 MG TAB (MIRAPEX) PO SCH (17:20)
--- NOTE | 2018-05-13 20:01 | NUR ---
patient was on 3 L O2 and sat O2 was 93%, then patient was taken off O2 at 1900, patient was on RA for 55 mins and had dropped to 85%, RT placed patient of 2 L NC at this time and O2 sat came up to at 92% and stayed above 90%. Patient is requiring O2 continously at 2 L
[2018-05-13] MEDS: MELATONIN 3 MG TABLET PO SCH (20:46)
[2018-05-13] MEDS: GABAPENTIN 100 MG (NEURONTIN) CAP PO SCH (20:47)
[2018-05-13] MEDS: DOXEPIN 10 MG (SINEquan) CAP PO SCH (20:47)
[2018-05-13] MEDS: MICONAZOLE 2% POWDER (DESENEX AF) 90 GM TOP SCH (20:48)
--- NOTE | 2018-05-13 22:24 | Progress Note-Cardiology ---
Cardiology SOAP Progress Note Subjective: Has gen malaise No shortness of breath No palp or syncope Objective: I&O/Vital Signs 05/13/18 05/13/18 05/13/18 05/13/18 11:00 12:00 15:00 15:46 Temp 97.7 96.4 Pulse 60 63 Resp 20 16 B/P (MAP) 106/73 (84) 116/67 (83) Pulse Ox 95 95 97 O2 Delivery High Flow N/C Nasal Cannula High Flow N/C Nasal Cannula O2 Flow Rate 2.00 2.00 2.00 2.00 05/13/18 05/13/18 05/13/18 18:52 19:55 20:00 Pulse Ox 93 93 O2 Delivery High Flow N/C High Flow N/C O2 Flow Rate 2.00 3.00 2.00 05/13/18 00:00 Intake Total 2740 ml Balance 2740 ml Weight (Pounds): 220 Weight (Ounces): 0.0 Weight (Calculated Kilograms): 99.317855 Constitutional: AAO x 3 Respiratory: chest is bilaterally symmetric, rhonchi, other (coarse lower lobes ) Cardiovascular: regular rate-rhythm, S1 and S2, systolic murmur Gastrointestional: soft, audible bowel sounds Extremities: significant edema Neurologic/Psychiatric: grossly intact Skin: No rash, No ulcerations Results/Procedures: Labs Laboratory Tests 05/13/18 06:31: Glucometer 134H 05/13/18 06:44: White Blood Count 8.7, Red Blood Count 3.85L, Hemoglobin 11.4L, Hematocrit 37, Mean Corpuscular Volume 96, Mean Corpuscular Hemoglobin 30, Mean Corpuscular Hemoglobin Concent 31L, Red Cell Distribution Width 14.1, Platelet Count 291, Mean Platelet Volume 9.1, Neutrophils (%) (Auto) 59, Lymphocytes (%) (Auto) 29, Monocytes (%) (Auto) 8, Eosinophils (%) (Auto) 4, Basophils (%) (Auto) 0, Neutrophils # (Auto) 5.1, Lymphocytes # (Auto) 2.5, Monocytes # (Auto) 0.7, Eosinophils # (Auto) 0.4H, Basophils # (Auto) 0.0, Sodium Level 140, Potassium Level 3.8, Chloride Level 101, Carbon Dioxide Level 27, Anion Gap 12, Blood Urea Nitrogen 10, Creatinine 0.67, Estimat Glomerular Filtration Rate > 60, BUN/ Creatinine Ratio 15, Glucose Level 137H, Calcium Level 8.8, Phosphorus Level 3.5 , Magnesium Level 1.6L 05/13/18 08:44: Vancomycin Level Trough 19.9 05/13/18 11:19: Glucometer 209H 05/13/18 15:45: Glucometer 141H 05/13/18 20:26: Glucometer 280H Microbiology 05/02/18 Catheter Tip Culture - Final, Complete No growth 05/02/18 Influenza Types A,B Antigen (OYLIE) - Final, Complete 05/02/18 Urine Culture - Final, Complete NO GROWTH A/P: Assessment: Sepsis due to UTI / pneumonia PAF with RVR associated with hypotension - converted to NSR on 04-24-18 - currently in NSR Eliquis for stroke prophylaxis S/p spinal fusion surgery and post-op resp failure Echo of 04/23/18: mod concentric LVH, LVEF 65-70%, mild left atrial enlargement, PASP 30-35 mmHg Chronic pain: chronic migraine headaches, chronic body pains and fibromyalgia. H/o labile hypertension and postural hypotension History of perioperative bradycardia (asystole) and tachycardia (ventricular fibrillation). 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 MPI of Nov 2017 showed no evidence of significant myocardial ischemia or infarction. LVEF 78% Obesity with a body mass index of approximately 37 The patient has been intolerant to statin therapy on account of chronic pain syndrome. DM II, insulin requiring, managed by [facility] medical billing supervisor Chronic cough of undetermined etiology. Dr Saleem following and has diagnosed restrictive lung disease Bilateral intermittent leg swelling, chornic. Venous insuff study of 02/15/16 did not show DVT or reflux in the deep venous system or valvular insuff of greater or small saphenous system or AASV Less than 40% DANIELLE stenosis, 40-59% LICA stenosis on carotid u/s of 02/03/16 Plan: * Continue regimen * Monitor labs closely * I spoke with her and answered CV-related questions * Dr Dotson covering CV Svce beginning 05/14/18 ULI YOO MD FACP [facility] May 13, 2018 22:24
[2018-05-14 00:44] VITALS: BP 127/78
[2018-05-14 05:19] LABS: BASOPHILS % (AUTO) 0 % (0-10); EOSINOPHILS # (AUTO) 0.3 10^3/uL (0.0-0.3); EOSINOPHILS % (AUTO) 4 % (0-10); HEMATOCRIT 35 % (35-52); HEMOGLOBIN 10.9 G/DL (11.5-16.0); LYMPHOCYTES # (AUTO) 2.3 X 10^3 (1.0-4.0); LYMPHOCYTES % (AUTO) 27 % (12-44); MEAN CORPUSCULAR HEMOGLOBIN 29 PG (25-34); MEAN CORPUSCULAR HGB CONC 31 G/DL (32-36); MEAN CORPUSCULAR VOLUME 95 FL (80-99); MEAN PLATELET VOLUME 8.9 FL (7.4-10.4); MONOCYTES # (AUTO) 0.9 X 10^3 (0.0-1.0); MONOCYTES % (AUTO) 11 % (0-12); NEUTROPHILS # (AUTO) 4.9 X 10^3 (1.8-7.8); NEUTROPHILS % (AUTO) 58 % (42-75); PLATELET COUNT 323 10^3/uL (130-400); RED CELL DISTRIBUTION WIDTH 14.3 % (10.0-14.5); WHITE BLOOD COUNT 8.4 10^3/uL (4.3-11.0)
[2018-05-14 05:37] LABS: BUN/CREATININE RATIO 15; CALCIUM 8.9 MG/DL (8.5-10.1); CARBON DIOXIDE 26 MMOL/L (21-32); CHLORIDE 101 MMOL/L (98-107); CREATININE SERUM 0.72 MG/DL (0.60-1.30); GFR ESTIMATED > 60; GLUCOSE 182 MG/DL (70-105); MAGNESIUM 1.6 MG/DL (1.8-2.4); PHOSPHORUS 3.7 MG/DL (2.3-4.7); POTASSIUM 3.8 MMOL/L (3.6-5.0); SODIUM 138 MMOL/L (135-145)
[2018-05-14] MEDS: MULTIVIT W/MINERALS TAB (THERAGRAN M) PO SCH (05:57)
[2018-05-14] MEDS: inSUlin ASPART (NovoLOG) 1 UNIT/0.01 ML (CHARGE PER UNIT) SQ SCH (05:57)
[2018-05-14] MEDS: KCL 8 MEQ (MICRO K) TABLET PO SCH (05:57)
[2018-05-14] MEDS: RT-ALBUTEROL/IPRATROPIUM 3 ML (DUONEB) VIAL INH SCH ×2 (06:21→10:45)
--- NOTE | 2018-05-14 07:15 | Pulmonary Progress Note ---
Subjective Time Seen by a Provider: 07:15 Subjective/Events-last exam No complications noted. Sepsis Event Evaluation Height, Weight, BMI Height: 5'5.00" Weight: 220lbs. 0.0oz. 99.404746ro; 36.6 BMI Method:Estimated Exam Exam Vital Signs Date Time Temp Pulse Resp B/P (MAP) Pulse Ox O2 Delivery O2 Flow Rate FiO2 05/14/18 06:23 96 High Flow N/C 2.00 05/14/18 00:44 98.2 67 22 127/78 (94) 96 Nasal Cannula 2.00 05/13/18 20:00 High Flow N/C 2.00 05/13/18 19:55 93 3.00 05/13/18 18:52 93 High Flow N/C 2.00 05/13/18 15:46 96.4 63 16 116/67 (83) 97 Nasal Cannula 2.00 05/13/18 15:00 95 High Flow N/C 2.00 05/13/18 12:00 97.7 60 20 106/73 (84) 95 Nasal Cannula 2.00 05/13/18 11:00 High Flow N/C 2.00 05/13/18 08:53 High Flow N/C 2.00 05/13/18 08:00 97.9 66 20 118/69 (85) 95 Nasal Cannula 2.00 05/13/18 07:19 96 High Flow N/C 2.00 I & O 05/14/18 07:00 Intake Total 2130 ml Balance 2130 ml Height & Weight Height: 5'5.00" Weight: 220lbs. 0.0oz. 99.842692yn; 36.6 BMI Method:Estimated General Appearance: No Apparent Distress Neck: Supple Respiratory: Lungs Clear Cardiovascular: Regular Rate, Rhythm Capillary Refill: Less Than 3 Seconds Gastrointestinal: normal bowel sounds, non tender, soft Extremity: Non Tender, No Calf Tenderness, No Pedal Edema Neurologic/Psychiatric: Alert, Oriented x3 Skin: Warm/Dry Lymphatic: No Adenopathy Results Lab Laboratory Tests 05/13/18 06:44 05/14/18 05:10 Assessment/Plan Assessment/Plan s/p acute respiratory failure - pt has home 02 PNA with Leukocytosis - persistent -Vanco- can be switched to PO zyvox after discharge for total of 10days treatment -Continue Vanco S/p C5-C6 fusion 04/22 Afib - -Cardiology following Hx of laryngal spasms -Ativan PRN HX of cardiac arrest 2010 Last EF 50-55% CAD Obesity Pt is ok for discharge from pulmonary standpoint. THERESA COOK DO May 14, 2018 07:15
[2018-05-14 08:00] VITALS: BP 116/57
[2018-05-14] MEDS: GABAPENTIN 300 MG (NEURONTIN) CAP PO SCH (08:06)
[2018-05-14] MEDS: PANTOPRAZOLE 40 MG (PROTONIX) TAB PO SCH (08:06)
[2018-05-14] MEDS: MAGNESIUM OXIDE (MAG-OX)400 MG TAB PO SCH (08:06)
[2018-05-14] MEDS: DILTIAZEM 240 MG (CARDIZEM CD) CAP PO SCH (08:06)
[2018-05-14] MEDS: FAMOTIDINE 20 MG (PEPCID) TABLET PO SCH (08:07)
[2018-05-14] MEDS: meTOprolol TARTRATE 50 MG (LOPRESSOR) TAB PO SCH (08:07)
[2018-05-14] MEDS: FUROSEMIDE 20 MG (LASIX) TAB PO SCH (08:07)
[2018-05-14] MEDS: SENNOSIDES 8.6 MG (SENOKOT) TAB PO SCH (08:07)
[2018-05-14] MEDS: HYDROcodone/APAP 5 MG/325 MG (LORTAB) TAB PO PRN (08:07)
[2018-05-14] MEDS: APIXABAN 5 MG (ELIQUIS) TABLET PO SCH (08:07)
[2018-05-14] MEDS: inSUlin DETERMIR 1 UNIT/0.01 ML (LEVEMIR) CHARGE PER UNIT SQ SCH (08:08)
[2018-05-14] MEDS: busPIRone 10 MG (BUSPAR) TAB PO SCH (08:08)
[2018-05-14] MEDS: MICONAZOLE 2% POWDER (DESENEX AF) 90 GM TOP SCH (08:10)
[2018-05-14] MEDS: diphenhydrAMINE 25 MG TAB (BENADRYL) PO PRN (08:15)
[2018-05-14] MEDS ORDERED: diphenhydrAMINE 25 MG TAB (BENADRYL) PO NR (08:45)
[2018-05-14] MEDS: VANCOMYCIN 1250 MG/NS 250 ML IVPB IV SCH ×2 (09:14)
--- NOTE | 2018-05-14 10:15 | NUR ---
Important Message from Medicare presented/reviewed/signed and charted. Patient voiced no intention to appeal and deny any needs or further questions at this time.
--- NOTE | 2018-05-14 10:29 | Physical Therapy Daily Note ---
PT Daily Note-Current Subjective Pt sitting up in bed upon arrival. Pt agrees to PT. Pain Numeric Pain Scale: 10-Worst Possible Pain Location: Anterior Location Body Site: Head Pain Description: Chronic Comment: Pt reports Migranes frequently, w/little relief. Mental Status Patient Orientation: Person, Place, Time, Situation Attachments: Oxygen, IV Transfers Therapy Code Descriptions/Definitions Functional [place] Measure: 0=Not Assessed/NA 4=Minimal Assistance 1=Total Assistance 5=Supervision or Setup 2=Maximal Assistance 6=Modified [place] 3=Moderate Assistance 7=Complete [place] Therapy Quality Codes: 6 Independent with activity with or without an assistive device 5 Patient requires set up or clean up by helper. Patient completes activity by themselves 4 Supervision or touching assist (CGA). [place] provide cues , steadying assist 3 The helper provides less than half the effort to complete the activity 2 The helper provides more than half the effort to complete the activity 1 Dependent. The helper does all the effort to complete an activity 7 Patient refused to complete or attempt activity 9 The patient did not perform the activity before the current illness or injury 88 Not attempted due to Medical conditions or safety concerns Scootin Rollin Supine to/from Sit: 6 Sit to/from Stand: 6 Weight Bearing Right Lower Extremity: Right Full Weight Bearing Left Lower Extremity: Left Full Weight Bearing Gait Training Distance (FIM): 3=150 ft Distance: 150' Gait Level of Assist: 5 Gait Persons Needed: 1 Gait Assistive Device: None Pt walks with slow gab, drifting slightly to L. Treatments Pt gives medical history then uses restroom before ambulating in hallway. Pt returns to room to rest sitting up in bed. Pt has all needs met. Assessment Current Status: Good Progress Pt is to DC later today and is excited to do so. Pt has improved with strength and independence of tasks including ambulation. PT Short Term Goals Short Term Goals Time Frame: May 10, 2018 Transfers (B,C,W/C) (FIM): 4 Gait (FIM): 1 Distance (FIM): 1=up to 49 ft Gait Distance Comment: 25' Gait Level of Assist: 4 Gait Assistive Device: FWW PT Plan Problem List Problem List: Activity Tolerance, Gait Treatment/Plan Treatment Plan: Continue Plan of Care Treatment Plan: Bed Mobility, Education, Functional Activity Eileen, Functional Strength, Gait, Safety, Therapeutic Exercise, Transfers Treatment Duration: May 10, 2018 Frequency: 6 times per week Estimated Hrs Per Day: .25 hour per day Patient and/or Family Agrees t: Yes Safety Risks/Education Patient Education: Gait Training, Correct Positioning, Safety Issues Teaching Recipient: Patient Teaching Methods: Discussion Response to Teaching: Verbalize Understanding Time/GCodes Time In: 945 Time Out: 1009 Total Billed Treatment Time: 24 Total Billed Treatment 1, FA (12m) & GT (12m) G Codes Necessary: NETTIE Banerjee PTA May 14, 2018 10:29
--- NOTE | 2018-05-14 11:20 | Occupational Ther Daily Note ---
OT Current Status-Daily Note Subjective Pt alert, sitting EOB. Pt agrees to therapy. Pt states that she is going home today. No c/o pain. Mental Status/Objective Patient Orientation: Person, Place, Time, Situation Therapy Code Descriptions/Definitions Functional Callao Measure: 0=Not Assessed/NA 4=Minimal Assistance 1=Total Assistance 5=Supervision or Setup 2=Maximal Assistance 6=Modified Callao 3=Moderate Assistance 7=Complete Callao Attachments: IV, Oxygen ADL-Treatment Per pt, nrsg brings shower supplies and pt completes all by self. Pt maneuvers IV pole around room to get to toilet, shower and sink. Pt stands at sink to complete grooming. Pt able to complete all dressing by self. Pt has HEP for UE theraband and has demonstrated understanding of exercises and correct technique. After therapy, pt lying in bed with call light/phone in reach. All needs met in room. Grooming (FIM): 7 Bathing (FIM): 6 Bathing Location: L Arm, R Arm, L Upper Leg, R Upper Leg, L Lower Leg ( including foot), R Lower Leg (including foot), Chest, Abdomen, Buttocks, Perineal Area Upper Body (FIM): 7 Lower Body Dressing (FIM): 7 Toileting (FIM): 7 Transfers (B, C, W/C) (FIM): 7 Toilet/Commode Transfer (FIM): 7 Shower Transfer(FIM): 6 OT Short Term Goals Short Term Goals Time Frame: May 19, 2018 Upper Body Dressing(FIM): 5 Lower Body Dressing(FIM): 5 Toileting(FIM): 5 Transfers (B,C,W/C) (FIM): 4 Toilet/Commode Transfer(FIM): 5 Additional Short Term Goals: 1-Demonstrate ADL Tasks, 2-Verbalize Understanding , 3-ImproveStrength/Eileen 1=Demonstrate adherence to instructed precautions during ADL tasks. 2=Patient will verbalize/demonstrate understanding of assistive devices/ modifications for ADL. 3=Patient will improve strength/tolerance for activity to enable patient to perform ADL's. OT Correction Goals Ultimate Hoops Trainer Goals Time Frame: Jun 02, 2018 Eating (FIM): 7 Grooming(FIM): 7 Bathing(FIM): 7 Bathing Location: L Arm, R Arm, L Upper Leg, R Upper Leg, L Lower Leg ( including foot), R Lower Leg (including foot), Chest, Abdomen, Buttocks, Perineal Area Upper Body Dressing(FIM): 6 Lower Body Dressing(FIM): 6 Toileting(FIM): 6 Transfers (B,C,W/C) (FIM): 6 Toilet/Commode Transfer(FIM): 6 Additional Goals: 1-Demonstrate ADL Tasks, 2-Verbalize Understanding, 3- ImproveStrength/Eileen 1=Demonstrate adherence to instructed precautions during ADL tasks. 2=Patient will verbalize/demonstrate understanding of assistive devices/ modifications for ADL. 3=Patient will improve strength/tolerance for activity to enable patient to perform ADL's. OT Education/Plan Discharge Recommendations Plan/Recommendations: Continue POC Treatment Plan/Plan of Care Patient would benefit from OT for education, treatment and training to promote independence in ADL's, mobility, safety and/or upper extremity function for ADL' s. Plan of Care: ADL Retraining, Functional Mobility, UE Funct Exercise/Act, UE Neuromus Re-Ed/Coord Treatment Duration: Jun 02, 2018 Frequency: 5 times per week Estimated Hrs Per Day: .5 hour per day Agreement: Yes Rehab Potential: Good Time/GCodes Start Time: 10:46 Stop Time: 11:11 Total Time Billed (hr/min): 25 Billed Treatment Time 1 visit-ADL 2 (25 min) ALYSHA CHIANG May 14, 2018 11:20
[2018-05-14 13:00] VITALS: BP 116/57
--- NOTE | 2018-05-14 13:00 | NUR ---
BRAYDON ARBOLEDA demonstrates understanding of discharge instructions and accurately returns instructions upon questioning. Copy of Post-Discharge Instructions given to PT. BRAYDON ARBOLEDA is able to manage continuing needs after discharge. Patients belongings returned to PT. Patient discharged from [facility] on 05/14/18 at 1300. BRAYDON ARBOLEDA left floor via W/C, accompanied by SON AND AUTO .
--- NOTE | 2018-05-14 14:00 | Cardiology Progress Note ---
Cardiology SOAP Progress Note Subjective: No cardiac complaints. Objective: I&O/Vital Signs 05/14/18 05/14/18 05/14/18 06:23 08:00 10:46 Temp 96.5 Pulse 68 Resp 20 B/P (MAP) 116/57 (76) Pulse Ox 96 95 O2 Delivery High Flow N/C Nasal Cannula High Flow N/C O2 Flow Rate 2.00 2.00 2.00 05/14/18 00:00 Intake Total 2130 ml Balance 2130 ml Weight (Pounds): 220 Weight (Ounces): 0.0 Weight (Calculated Kilograms): 99.582975 Constitutional: AAO x 3 Respiratory: No accessory muscle use, No respiratory distress, No chest tender , No chest expansion is symmetric; chest is bilaterally symmetric; No lungs clear to percussion; lungs clear to auscultation; No crackles, No rales, No stridor, No wheezing, No pleural rub; other (coarse lower lobes) Cardiovascular: regular rate-rhythm; No irregularly irregular, No extra beats, No parasternal heave is noted, No JVD, No edema, No bradycardia, No tachycardia , No point of maximal impulse, No cardiac thrills are palpable; S1 and S2; No gallop/S3, No gallop/S4, No diastolic murmur; systolic murmur; No friction rub, No click, No other Gastrointestional: No tender; soft; No round, No distended, No pulsatile mass, No organomegaly, No guarding, No rebound, No tenderness, No hernia, No mass; audible bowel sounds; No abnormal bowel sounds, No abdominal bruits, No spleenomegaly, No other Extremities: No normal range of motion, No non-tender, No normal inspection, No pedal edema, No calf tenderness, No normal capillary refill, No pelvis stable , No calf tenderness, No inflammation, No pedal edema, No slow capillary refill , No swelling, No other, No abrasion, No clubbing, No cyanosis, No ecchymosis, No laceration, No no lower extremity edema bilateral; significant edema; No tenderness, No wound Neurologic/Psychiatric: no motor/sensory deficits, alert, normal mood/affect, oriented x 3, grossly intact Skin: No normal color, No warm/dry, No cyanosis, No cool, No diaphoresis, No damp, No ecchymosis, No jaundice, No mottled, No pallor, No rash, No tattoos/ piercings, No ulcerations, No rash on exposed areas, No ulcerations on exposed areas, No other Results/Procedures: Labs Laboratory Tests 05/13/18 15:45: Glucometer 141H 05/13/18 20:26: Glucometer 280H 05/14/18 05:00: Glucometer 192H 05/14/18 05:10: White Blood Count 8.4, Red Blood Count 3.73L, Hemoglobin 10.9L, Hematocrit 35, Mean Corpuscular Volume 95, Mean Corpuscular Hemoglobin 29, Mean Corpuscular Hemoglobin Concent 31L, Red Cell Distribution Width 14.3, Platelet Count 323, Mean Platelet Volume 8.9, Neutrophils (%) (Auto) 58, Lymphocytes (%) (Auto) 27, Monocytes (%) (Auto) 11, Eosinophils (%) (Auto) 4, Basophils (%) (Auto) 0, Neutrophils # (Auto) 4.9, Lymphocytes # (Auto) 2.3, Monocytes # (Auto) 0.9, Eosinophils # (Auto) 0.3, Basophils # (Auto) 0.0, Sodium Level 138, Potassium Level 3.8, Chloride Level 101, Carbon Dioxide Level 26, Anion Gap 11, Blood Urea Nitrogen 11, Creatinine 0.72, Estimat Glomerular Filtration Rate > 60, BUN/ Creatinine Ratio 15, Glucose Level 182H, Calcium Level 8.9, Phosphorus Level 3.7 , Magnesium Level 1.6L 05/14/18 11:30: Glucometer 260H Microbiology 05/02/18 Catheter Tip Culture - Final, Complete No growth 05/02/18 Influenza Types A,B Antigen (YOLIE) - Final, Complete 05/02/18 Urine Culture - Final, Complete NO GROWTH A/P: Assessment/Dx: Sepsis, resolved. PAF with RVR associated with hypotension - converted to NSR on 04-24-18 S/p spinal fusion surgery and post-op resp failure requiring intubation and mech vent- extubated Echo of 04/23/18: mod concentric LVH, LVEF 65-70%, mild left atrial enlargement, PASP 30-35 mmHg Electrolyte abnormalities - corrected Previous h/o paroxysmal atrial tach and palpitations Chronic migraine headaches. Chronic body pains and fibromyalgia. H/o labile hypertension and postural hypotension History of perioperative bradycardia (asystole) and tachycardia (ventricular fibrillation). 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 MPI of Nov 2017 showed no evidence of significant myocardial ischemia or infarction. LVEF 78% Chronic pain syndrome. Obesity with a body mass index of approximately 36 The patient has been intolerant to statin therapy on account of chronic pain syndrome. DM II, insulin requiring, managed by [facility] financial services sales representative Cough of undetermined etiology. Dr Saleem following and has diagnosed restrictive lung disease Suspected LION - awaiting sleep studies at [facility] Bilateral intermittent leg swelling, chornic. Venous insuff study of 02/15/16 did not show DVT or reflux in the deep venous system or valvular insuff of greater or small saphenous system or AASV Less than 40% DANIELLE stenosis, 40-59% LICA stenosis on carotid u/s of 02/03/16 Plan: * Amio gtt has completed - maintaining SR * Oral Diltiazem. * Continue BB tx * Eliquis for PAF. * Okay to DC to follow Dr. Cerda as an outpatient. Thank you for your consultation. Please call me if you have any questions. Neeraj Landa MD, FACP, FACC, FSCAI, FHRS, CCDS Interventional Cardiology Cardiac Electrophysiology Vascular Medicine and Endovascular Interventions Dania LANDA MD May 14, 2018 14:00
--- NOTE | 2018-05-14 16:21 | NUR ---
CM/SS, respond to consult for final discharge planning. Discussed HHC and DME with patient and coordinated services with her preferred agencies: HHC: [facility]. Staff are pursuing benefits through patient's [employer] insurance. Patient selected [facility] but they were not in network. DME: Patient has home O2 with [employer] Gallegos for night use. Sticker Operator confirmed with agency that patient had tanks and cart at home, discussed with patient and her son agreed to bring those for transport home. Provided [employer] with updated RT study showing need for continuous O2. After discussion with patient about [employer] portable concentrator, updated [employer] that patient does desire this DME and they will pursue from PCP. Patient much improved from lengthy hospital stay. Expressed her appreciation for good care and caring staff.
--- NOTE | 2018-05-16 12:56 | Discharge Summary ---
Diagnosis/Chief Complaint Date of Admission Apr 21, 2018 at 06:01 Date of Discharge May 14, 2018 at 13:00 Discharge Date: May 14, 2018 Discharge Diagnosis 1. Acute Respiratory Failure--improved 2. Postop Stridor--resolved 3. Diabetes mellitus--stable 4. COPD--stable 5. SVT/V Tach--resolved/stable 6. Hypotension/Hypothermia--resolved 7. Insomnia--stable 8. Weakness--improving 9. Acute UTI/Pneumonia with Sepsis--resolved 10. Intertrigo--treating 11. Hypertensive Urgency with SVT--resolved 12. Cervical Spinal Stenosis with Anterior C5-C6 fusion--healing well Reason Hospital Visit Discharge Summary Hospital Course Hospital Course This is a 72 year old female with cervical spinal stenosis who underwent anterior cervical spinal fusion on 04/21/[address] Faulkner. Postoperatively she had stridor. She has a history of psychogenic stridor and this worsened as the day went on. She had a dose of racemic epinephrine and then had tachycardia and hypertensive response and had to be transferred to the ICU where she was talking and communicating with us but was unable to protect her airway so she was sedated and intubated by anesthesia. Her blood pressure and tachycardia responded to IV cardizem. A CT scan of her neck revealed no hematoma. Her ventilatory support was complicated by development of SVT and V Tach and therefore she had to be placed on an amidarone and cardizem drip with cardiology consultation. Her ventilatory support was then complicated by hypothermia and hypotension which responded to warming blankets and IV fluid boluses. She was then able to be weaned from the ventilator and did well with no return of her stridor. She was transferred to the medical floor and was started on PT and OT for strengthening and the plan was for discharge to a [facility] facility on 05/01/18 but she developed a fever and worsening respiratory status. She had to be transferred back to the ICU due to respiratory distress and workup revealed pneumonia and a UTI with sepsis so she was started on cefepime and vancomycin. She did have to be placed on vapotherm but did not require reintubation. She improved with the antibiotics and was once again transferred out of the ICU to the medical floor and restarted with PT and OT as she lost ground and strength following the sepsis with pneumonia and UTI and readmission to the ICU. SWING bed was attempted for further time with IV antibiotics and therapies but this was denied by her insurance. She remained on the medical floor and was improving until her IV Vancomycin was discontinued after 5 days of therapy. The following day she had chills overnight so the IV Vancomycin was restarted for completion of a full 10 day course. She remained in the hospital on both the maxipime and vancomycin until her complete 10 day course of vancomycin was complete. She continued with PT and OT and her strength was improving by discharge. Her lungs and CXR were clear by discharge and her WBC count and temperature were stable. She had no return of her stridor and her cervical fusion wound site was healing well and she had no complaints of pain. It was decided that she would go home with homehealth. Labs Laboratory Tests 05/13/18 15:45: Glucometer 141H 05/13/18 20:26: Glucometer 280H 05/14/18 05:00: Glucometer 192H 05/14/18 05:10: Red Blood Count 3.73L, Hemoglobin 10.9L, Mean Corpuscular Hemoglobin Concent 31L , Glucose Level 182H, Magnesium Level 1.6L 05/14/18 11:30: Glucometer 260H Procedures None. Consultations Dr. Saleem--pulmonology Dr. Cerda--cardiology Dr. Faulkner--orthopedics Discharge Physical Examination Allergies: Coded Allergies: oxycodone (Verified Allergy, Mild, 05/04/18) HALLUCINATIONS Penicillins (Unverified Allergy, Unknown, Pt has received Cefepime & Ceftriaxone in the past w/o issue, 01/18/17) Sulfa (Sulfonamide Antibiotics) (Verified Allergy, Unknown, 06/08/16) aspirin (Verified Adverse Reaction, Mild, ASPIRIN SENSITIVE, 06/08/16) sumatriptan (Verified Adverse Reaction, Mild, PALPITATIONS, 06/08/16) Vitals & I&Os Vital Signs Date Time Temp Pulse Resp B/P (MAP) Pulse Ox O2 Delivery O2 Flow Rate FiO2 05/14/18 13:00 68 20 116/57 95 High Flow N/C 2.00 05/14/18 08:00 96.5 General Appearance: Alert, Oriented X3, Cooperative Respiratory: Clear to Auscultation Cardiovascular: Regular Rate Abdominal: Normal Bowel Sounds, Soft, No Tenderness Extremities: No Clubbing, No Cyanosis, No Edema Neuro: Normal Gait, Normal Speech Psych/Mental Status: Mental Status NL, Mood NL Discharge Home Medications Reviewed and agree with Discharge Medication list on patient's Discharge Instruction sheet Instructions to Patient/Family Please see electronic discharge instructions given to patient. Clinical Quality Measures DVT/VTE Risk/Contraindication: Risk Factor Score Per Nursin RFS Level Per Nursing on Admit: 4+=Very High NANNETTE REVELES DO May 16, 2018 12:56
== END 2018-05-14 13:00 | disposition home health service (06) | DRG 471 ==
LOC: 4TH 06:01 → SURG 06:02 → EDSTATUS 07:30 → 4TH 10:10 → ICU 17:25 → 4TH 04-27 18:30 → ICU 05-02 11:15 → 4TH 05-06 19:43
PROVIDERS: ADMIT Orthopaedic Surgery; ATTEND Orthopaedic Surgery
PROC: 0RT30ZZ Resection of Cervical Vertebral Disc, Open Approach (ICD-10-PCS; 2018-04-21)
PROC: 5A1945Z Respiratory Ventilation, 24-96 Consecutive Hours (ICD-10-PCS; 2018-04-21)
PROC: 0RG10A0 Fusion of Cervical Vertebral Joint with Interbody Fusion Device, Anterior Approach, Anterior Column, Open Approach (ICD-10-PCS; principal; 2018-04-21 07:25)
DX: M48.02 Spinal stenosis, cervical region (principal); M50.122 Cervical disc disorder at C5-C6 level with radiculopathy; J95.821 Acute postprocedural respiratory failure; A41.9 Sepsis, unspecified organism; J18.9 Pneumonia, unspecified organism; J44.0 Chronic obstructive pulmonary disease with (acute) lower respiratory infection; N39.0 Urinary tract infection, site not specified; I47.1 Supraventricular tachycardia; F05 Delirium due to known physiological condition; J90 Pleural effusion, not elsewhere classified; J38.5 Laryngeal spasm; I16.0 Hypertensive urgency; T44.5X5A Adverse effect of predominantly beta-adrenoreceptor agonists, initial encounter; E83.42 Hypomagnesemia; E87.6 Hypokalemia; E11.65 Type 2 diabetes mellitus with hyperglycemia; R60.0 Localized edema; R68.0 Hypothermia, not associated with low environmental temperature; I95.9 Hypotension, unspecified; I48.0 Paroxysmal atrial fibrillation; L30.4 Erythema intertrigo; I25.10 Atherosclerotic heart disease of native coronary artery without angina pectoris; E78.00 Pure hypercholesterolemia, unspecified; E11.49 Type 2 diabetes mellitus with other diabetic neurological complication; F41.9 Anxiety disorder, unspecified; K21.9 Gastro-esophageal reflux disease without esophagitis; G47.00 Insomnia, unspecified; R53.1 Weakness; R42 Dizziness and giddiness; Z95.810 Presence of automatic (implantable) cardiac defibrillator
CPT/HCPCS: 36415; 36569; 36600; 70491; 71045; 76937; 80048; 80053; 80202; 81000; 82550; 82805; 82962; 83605; 83735; 83880; 84100; 84439; 84443; 84481; 84484; 85007; 85025; 85027; 86850; 86900; 86901; 87040; 87070; 87077; 87081; 87088; 87186; 87205; 87449; 87804; 87899; 93005; 93306; 94002; 94003; 94640; 94664; 94760; 94761; 94799

== ENCOUNTER 2018-05-17 17:19 | Emergency (ER) | payer MEDICARE ==
[~2018-05-17] VITALS: Ht 165.1 cm; Wt 98.0 kg
[~2018-05-17 17:19] MED LIST changes: +ACET-2650 PO; +APIX5TAB PO; +DILT240C97 PO; +DOXE10CA29 PO; +INSU100V5 SQ; +MELA3TAB PO; +MICO90PO TOP; +SENN-141 PO
--- NOTE | 2018-05-17 18:01 | ED General ---
General Chief Complaint: Fever-Adult/Adol Stated Complaint: FEVER,CONGESTED, WAS DISCHARGED FROM HOSP WED 05/14 Nursing Triage Note: Pt to rm 3 in wheelchair. Pt reports being dc'd from the hospital on Sat. Pt reports being admitted for pneumonia, UTI, and sepsis. Pt reports the pt coded and was intubated while admitted. Pt came to ED today reporting temperature of 100.7. Pt denies taking any tylenol or IBU. Temp 98.0 oral upon arrival. Nursing Sepsis Screen: No Definite Risk Source of Information: Patient, Family Exam Limitations: No Limitations History of Present Illness Date Seen by Provider: May 17, 2018 Time Seen by Provider: 17:54 Initial Comments Patient presents ER by private conveyance with chief complaint of fever. She just got home from lengthy stay for over a week in the ICU for pneumonia and UTI after a cervical spinal surgery. She was intubated to protect her airway because she is having some stridor however she has a history of pseudo-stridor. Patient completed 10 days of cefepime and vancomycin. She was doing well afebrile at time of discharge, and today she started to feel some chills and checked her temperature and found it to be a MAXIMUM TEMPERATURE of 100.7. She has not taken any Tylenol or Motrin. She is denying any dysuria. She still has a cough that is sometimes productive. Her sore throat is gotten better. She has some minor pain in her neck and back that is a little worse than usual but has been chronic for some time. She has no abdominal pain but she has some nausea. She has no rashes or skin breakdown. Allergies and Home Medications Allergies Coded Allergies: oxycodone (Verified Allergy, Mild, 05/04/18) HALLUCINATIONS Penicillins (Unverified Allergy, Unknown, Pt has received Cefepime & Ceftriaxone in the past w/o issue, 01/18/17) Sulfa (Sulfonamide Antibiotics) (Verified Allergy, Unknown, 06/08/16) aspirin (Verified Adverse Reaction, Mild, ASPIRIN SENSITIVE, 06/08/16) sumatriptan (Verified Adverse Reaction, Mild, PALPITATIONS, 06/08/16) Home Medications Acetaminophen 650 Mg Tablet.er, 650 MG PO Q4H Prescribed by: NANNETTE REVELES on 05/01/18 1042 Apixaban 5 Mg Tablet, 5 MG PO Q12H Prescribed by: YASMANI HAMILTON on 05/01/18 09 Buspirone HCl 5 Mg Tablet, 5 MG PO TID, (Reported) Diltiazem HCl 240 Mg Cap.er.24h, 240 MG PO DAILY Prescribed by: YASMANI HAMILTON on 05/01/18905 Doxepin HCl 10 Mg Capsule, 20 MG PO HS Prescribed by: NANNETTE REVELES on 05/13/18 171 Hydrocodone Bit/Acetaminophen 1 Tab Tab, 1 TAB PO Q4H PRN for PAIN-MODERATE Prescribed by: NANNETTE REVELES on 05/01/18 104 Insulin Determir 1,000 Units/10 Ml Soln, 50 UNIT SQ DAILY Prescribed by: NANNETTE REVELES on 05/01/18 104 Ipratropium/Albuterol Sulfate 3 Ml Ampul.neb, 3 ML NEB Q6H PRN for SHORTNESS OF BREATH, (Reported) Lorazepam 0.5 Mg Tablet, 0.5 MG PO TID PRN for ANXIETY Prescribed by: NANNETTE REVELES on 05/01/18 104 Magnesium Oxide 400 Mg Tablet, 400 MG PO BIDPC Prescribed by: YASMANI HAMILTON on 05/01/18 09 Melatonin 3 Mg Tablet, 6 MG PO HS Prescribed by: NANNETTE REVELES on 05/01/18 104 Metformin HCl 500 Mg Tab.er.24h, 1,000 MG PO BID TAKE 2 (500MG) TABS Prescribed by: NANNETTE REVELES on 05/01/18 104 Metoprolol Tartrate 100 Mg Tablet, 100 MG PO BID, (Reported) Miconazole Nitrate 90 Gm Powder, 0 GM TOP BID to groin twice a day for 2 weeks Prescribed by: NANNETTE REVELES on 05/13/18 170 Omeprazole 40 Mg Capsule.dr, 40 MG PO BID, (Reported) Pramipexole Di-HCl 1 Mg Tablet, 1 MG PO 1700, (Reported) Sennosides 8.6 Mg Tablet, 8.6 MG PO BID Prescribed by: NANNETTE REVELES on 05/01/18 104 Patient Home Medication List Home Medication List Reviewed: Yes Review of Systems Review of Systems Constitutional: chills, fever, malaise, weakness (in the afternoon) EENTM: hoarseness, throat pain (improving); No ear discharge, No ear pain, No nose congestion, No throat swelling Respiratory: cough, phlegm; No short of breath, No stridor, No wheezing Cardiovascular: No chest pain, No palpitations Gastrointestinal: No abdominal pain, No constipation, No diarrhea; nausea; No vomiting Genitourinary: No decreased output, No discharge Musculoskeletal: No back pain, No joint pain Skin: No pruritus, No rash Past Ykyrhqk-Zfrrca-Vwkwfj Hx Patient Social History Alcohol Use: Denies Use Recreational Drug Use: No Smoking Status: Never a Smoker 2nd Hand Smoke Exposure: Yes Recent Foreign Travel: No Contact w/Someone Who Travel: No Recent Infectious Disease Expo: No Recent Hopitalizations: No Immunizations Up To Date Tetanus Booster (TDap): Unknown PED Vaccines UTD: No Date of Pneumonia Vaccine: Dec 02, 2017 Date of Influenza Vaccine: Jan 24, 2018 Seasonal Allergies Seasonal Allergies: Yes Past Medical History Surgeries: Yes (LAP NISSIEN) Abdominal, Appendectomy, Cardiac, Defibrillator, Eye Surgery, Gallbladder, Hysterectomy, Oophorectomy, Orthopedic, Pacemaker, Tonsillectomy Respiratory: Yes Asthma, Pneumonia, Chronic Bronchitis, COPD Currently Using CPAP: No Currently Using BIPAP: No Cardiac: Yes (SUDDEN CARDIAC ARREST IN 2010 WHEN GETTING PREPPED FOR SURGERY, ) High Cholesterol, Irregular Heartbeat Neurological: Yes (PERIPHERAL NEUROPATHY--HANDS AND FEET) Headaches /Migraines, Neuropathy 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 Disorders: No Female 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 Disorders: Denies 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 History: Menopausal Sexually Transmitted Disease: No Genitourinary: Yes Kidney Infection, Bladder Infection, Kidney Stones, UTI-Chronic Gastrointestinal: Yes (S/P CORNELIUS FUNDOPLICATION; ESOPHAGEAL STRICTURES/ DILATIONS; DYSPHAGIA) Gastroesophageal Reflux, Diverticulosis, Hemorrhoids, Polyps, C-Diff, Hiatal Hernia, Ulcer, Irritable Bowel Musculoskeletal: Yes Degenerate Disk Disease, Arthritis, Fibromyalgia, Chronic Back Pain, Fractures Endocrine: Yes Diabetes, Insulin dep, Diabetes, Non-Insulin dep HEENT: Yes Cataract Loss of Vision: Denies Hearing Impairment: Denies Cancer: No Psychosocial: Yes Anxiety, Depression Integumentary: Yes Pruritis Blood Disorders: No Adverse Reaction/Blood Tranf: No Family Medical History Alzheimer's disease 19 FATHER Cardiovascular disease 19 FATHER 19 MOTHER Completed stroke 19 MOTHER Hypertension 19 FATHER 19 MOTHER Myocardial infarction 19 FATHER 19 MOTHER No Family History of: Diabetes mellitus Physical Exam-Suspected Sepsis Physical Exam Vital Signs Vital Signs - First Documented 05/17/18 17:31 Temp 98.0 Pulse 84 Resp 18 B/P (MAP) 139/73 (95) Pulse Ox 95 O2 Delivery Nasal Cannula O2 Flow Rate 2.00 Capillary Refill : Less Than 3 Seconds Blood Pressure Mean: 95 Height, Weight, BMI Height: 5'5.00" Weight: 216lbs. 0.0oz. 97.781176yk; 36.6 BMI Method:Stated General Appearance: No Apparent Distress, WD/WN Eyes: Bilateral Eye Normal Inspection, Bilateral Eye PERRL, Bilateral Eye EOMI HEENT: PERRL/EOMI, TMs Normal, Normal ENT Inspection, Pharynx Normal; No Moist Mucous Membranes (mildly dry), No Tonsillar Exudate, No Tonsillar Enlargement Neck: Full Range of Motion, Normal Inspection, Non Tender, Supple; No Lymphadenopathy (L), No Lymphadenopathy (R) Respiratory: Lungs Clear, Normal Breath Sounds, No Accessory Muscle Use, No Respiratory Distress Cardiovascular: Regular Rate, Rhythm, No Edema, Normal Peripheral Pulses Gastrointestinal: Normal Bowel Sounds, No Organomegaly, Non Tender, Soft Back: Normal Inspection, No Vertebral Tenderness Extremity: Normal Capillary Refill, Normal Inspection, Normal Range of Motion, Non Tender, No Calf Tenderness, No Pedal Edema Neurologic/Psychiatric: Alert, Oriented x3, No Motor/Sensory Deficits, 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 Skin: normal color, warm/dry Focused Exam Lactate Level 05/17/18 18:14: Lactic Acid Level 2.32*H 05/17/18 20:40: Lactic Acid Level 2.19*H Lactic Acid Level Laboratory Tests Test 05/17/18 20:40 Lactic Acid Level 2.19 MMOL/L (0.50-2.00) *H Procedures/Interventions Date of ETT Placement: Apr 21, 2018 Time of ETT Placement: 1744 Progress/Results/Core Measures Suspected Sepsis Recent Fever Within 48 Hours: Yes Infection Criteria Present: Suspected New Infection New/Unexplained Altered Menta: No Sepsis Screen: No Definite Risk SIRS Temperature:98.0 Pulse: 84 Respiratory Rate: 18 Laboratory Tests 05/17/18 18:14: White Blood Count 7.2 Blood Pressure 139 /73 Mean: 95 05/17/18 18:14: Lactic Acid Level 2.32*H 05/17/18 20:40: Lactic Acid Level 2.19*H Laboratory Tests 05/17/18 18:10: Creatinine 0.87, INR Comment 1.1, Total Bilirubin 0.3 05/17/18 18:14: Platelet Count 309 Results/Orders Lab Results Laboratory Tests Test 05/17/18 18:10 05/17/18 18:14 05/17/18 18:25 05/17/18 19:36 Range/Units Prothrombin Time 13.7 12.2-14.7 SEC INR Comment 1.1 0.8-1.4 Activated Partial Thromboplast Time 21 L 24-35 SEC Sodium Level 136 135-145 MMOL/L Potassium Level 3.8 3.6-5.0 MMOL/L Chloride Level 101 98-107 MMOL/L Carbon Dioxide Level 22 21-32 MMOL/L Anion Gap 13 5-14 MMOL/L Blood Urea Nitrogen 12 7-18 MG/DL Creatinine 0.87 0.60-1.30 MG/DL Estimat Glomerular Filtration Rate > 60 BUN/Creatinine Ratio 14 Glucose Level 305 H 70-105 MG/DL Calcium Level 9.8 8.5-10.1 MG/DL Corrected Calcium 9.9 8.5-10.1 MG/DL Total Bilirubin 0.3 0.1-1.0 MG/DL Aspartate Amino Transf (AST/SGOT) 27 5-34 U/L Alanine Aminotransferase (ALT/SGPT) 30 0-55 U/L Alkaline Phosphatase 128 40-136 U/L Total Protein 6.7 6.4-8.2 GM/DL Albumin 3.9 3.2-4.5 GM/DL White Blood Count 7.2 4.3-11.0 10^3/uL Red Blood Count 4.09 L 4.35-5.85 10^6/uL Hemoglobin 12.0 11.5-16.0 G/DL Hematocrit 38 35-52 % Mean Corpuscular Volume 94 80-99 FL Mean Corpuscular Hemoglobin 29 25-34 PG Mean Corpuscular Hemoglobin Concent 31 L 32-36 G/DL Red Cell Distribution Width 13.6 10.0-14.5 % Platelet Count 309 130-400 10^3/uL Mean Platelet Volume 9.4 7.4-10.4 FL Neutrophils (%) (Auto) 58 42-75 % Lymphocytes (%) (Auto) 27 12-44 % Monocytes (%) (Auto) 11 0-12 % Eosinophils (%) (Auto) 3 0-10 % Basophils (%) (Auto) 1 0-10 % Neutrophils # (Auto) 4.2 1.8-7.8 X 10^3 Lymphocytes # (Auto) 1.9 1.0-4.0 X 10^3 Monocytes # (Auto) 0.8 0.0-1.0 X 10^3 Eosinophils # (Auto) 0.2 0.0-0.3 10^3/uL Basophils # (Auto) 0.1 0.0-0.1 10^3/uL Lactic Acid Level 2.32 *H 0.50-2.00 MMOL/L Urine Color YELLOW Urine Clarity CLEAR Urine pH 6 5-9 Urine Specific [place] 1.015 L 1.016-1.022 Urine Protein 1+ H NEGATIVE Urine Glucose (UA) 3+ H NEGATIVE Urine Ketones NEGATIVE NEGATIVE Urine Nitrite NEGATIVE NEGATIVE Urine Bilirubin NEGATIVE NEGATIVE Urine Urobilinogen NORMAL NORMAL MG/DL Urine Leukocyte Esterase 1+ H NEGATIVE Urine RBC (Auto) 1+ H NEGATIVE Urine RBC NONE /HPF Urine WBC 0-2 /HPF Urine Squamous Epithelial Cells 0-2 /HPF Urine Crystals NONE /LPF Urine Bacteria NEGATIVE /HPF Urine Casts NONE /LPF Urine Mucus NEGATIVE /LPF Urine Culture Indicated CULTURE PENDING Group A Streptococcus Screen NEGATIVE NEGATIVE Test 05/17/18 20:40 Range/Units Lactic Acid Level 2.19 *H 0.50-2.00 MMOL/L Micro Results Microbiology 05/17/18 Influenza Types A,B Antigen (YOLIE) - Final, Complete My Orders Orders - ISRA[place] ODELL Acetaminophen Tablet (Tylenol Tablet) (05/17/18 18:15) Influenza A And B Antigens (05/17/18 18:01) Rapid Strep A Screen (05/17/18 18:01) Ondansetron Injection (Zofran Injectio (05/17/18 18:15) Saline Lock/Iv-Start (05/17/18 19:17) Ns Iv 1000 Ml (Sodium Chloride 0.9%) (05/17/18 19:17) Ns Iv 1000 Ml (Sodium Chloride 0.9%) (05/17/18 19:17) Medications Given in ED Current Medications Medications Dose Ordered Sig/Alannah Route Start Time Stop Time Status Last Admin Dose Admin Acetaminophen 1,000 mg ONCE ONCE PO 05/17/18 18:15 05/17/18 18:16 DC 05/17/18 19:14 1,000 MG Ondansetron HCl 4 mg ONCE ONCE IVP 05/17/18 18:15 05/17/18 18:16 DC 05/17/18 19:13 4 MG Sodium Chloride 1,000 ml @ 0 mls/hr Q0M ONCE IV 05/17/18 19:17 05/17/18 19:19 DC 05/17/18 19:34 1,000 MLS/HR Vital Signs/I&O 05/17/18 17:31 Temp 98.0 Pulse 84 Resp 18 B/P (MAP) 139/73 (95) Pulse Ox 95 O2 Delivery Nasal Cannula O2 Flow Rate 2.00 05/18/18 00:00 Intake Total 1000 ml Balance 1000 ml Capillary Refill : Less Than 3 Seconds Blood Pressure Mean: 95 Progress Note #1: Time: 18:20 Progress Note Influenza swab, septic workup. She does not meet SIRS criteria and yet she just has a fever. No with her recent stay in the hospital and multiple antibiotics we 'll plan to cast widened including urine, chest x-ray etc. She does not seem to be in any acute distress and could just have a viral syndrome. She does endorse cough although she is just getting over pneumonia as well. Progress Note #2: Time: 19:38 Progress Note Patient's feeling okay at the moment about same as when she came. Her lactate elevated but her white count is normal. She has what seems to be a viral syndrome. No evidence of any acute infection. Plan to give her some fluids recheck her lactate and offer her observation stay versus going home. She would prefer to go home and use Tylenol and ibuprofen. Progress Note #3: Time: 00:05 Progress Note The patient has received all her IV fluids is feeling better and would like to go home. We have discussed the option of staying versus going home and following up outpatient and she would prefer the latter. Diagnostic Imaging Diagonstic Imaging: Xray Plain Films/CT/US/NM/MRI: chest (1 view) Comments NAME: BRAYDON ARBOLEDA [facility] REC#: [id number] PHYSICIAN: BRADY HOFFMAN MD CC: BRADY HOFFMAN MD; ABRAN ROY MD Page 1 of 1 RADIOLOGY REPORT [facility]. [place], [place] CC: BRADY HOFFMAN MD; ABRAN ROY MD Page 1 of 1 RADIOLOGY REPORT NAME: BRAYDON ARBOLEDA [facility] REC#: [id number] PT STATUS: REG ER : 1945 PHYSICIAN: BRADY HOFFMAN MD ADMIT DATE: 05/17/18/ER Signed Date of Exam: 05/17/18 CHEST 1 VIEW, AP/PA ONLY INDICATION: Cough, fever, and shortness of breath. Comparison is made with prior examination from 05/13/2018. FINDINGS: There is cardiomegaly. The mediastinum is unremarkable. Pacemaker overlies the left hemithorax. There is no pleural effusion or pneumothorax. IMPRESSION: No acute cardiopulmonary abnormality. Cardiomegaly. Dictated by: Dictated on workstation # [id number] Dict: 05/17/184 Trans: 05/17/181905 Interpreted by: ABRAN ROY MD Electronically signed by: ABRAN ROY MD 05/17/181905 Reviewed: Reviewed by Me Departure Impression Primary Impression: Viral syndrome Additional Impression: Mild dehydration Disposition: 01 HOME, SELF-CARE Condition: Improved Departure-Patient Inst. Decision time for Depature: 00:06 Referrals: NANNETTE REVELES DO (PCP/Family) Primary Care Physician Patient Instructions: Fever, Adult (DC) Add. Discharge Instructions: Continue to use Tylenol and/or ibuprofen as necessary for fevers and chills. If your symptoms become worse or you start having productive cough, significant pain, nausea or other worrisome symptoms return to the ER otherwise follow up with primary care next week. All discharge instructions reviewed with patient and/or family. Voiced understanding. Copy Copies To 1: NANNETTE REVELES TITUS J May 17, 2018 18:01
[2018-05-17] MEDS ORDERED: ONDANSETRON 4 MG/2 ML (SDV) Z0FRAN IVP ONE (18:15)
[2018-05-17] MEDS ORDERED: ACETAMINOPHEN 500 MG TAB (TYLENOL) PO ONE (18:15)
[2018-05-17 18:19] LABS: BASOPHILS # (AUTO) 0.1 10^3/uL (0.0-0.1); BASOPHILS % (AUTO) 1 % (0-10); EOSINOPHILS # (AUTO) 0.2 10^3/uL (0.0-0.3); EOSINOPHILS % (AUTO) 3 % (0-10); HEMATOCRIT 38 % (35-52); LYMPHOCYTES # (AUTO) 1.9 X 10^3 (1.0-4.0); LYMPHOCYTES % (AUTO) 27 % (12-44); MEAN CORPUSCULAR HEMOGLOBIN 29 PG (25-34); MEAN CORPUSCULAR HGB CONC 31 G/DL (32-36); MEAN CORPUSCULAR VOLUME 94 FL (80-99); MEAN PLATELET VOLUME 9.4 FL (7.4-10.4); MONOCYTES # (AUTO) 0.8 X 10^3 (0.0-1.0); MONOCYTES % (AUTO) 11 % (0-12); NEUTROPHILS # (AUTO) 4.2 X 10^3 (1.8-7.8); NEUTROPHILS % (AUTO) 58 % (42-75); PLATELET COUNT 309 10^3/uL (130-400); RED CELL DISTRIBUTION WIDTH 13.6 % (10.0-14.5); WHITE BLOOD COUNT 7.2 10^3/uL (4.3-11.0)
[2018-05-17 18:35] LABS: INR 1.1 (0.8-1.4); PROTHROMBIN TIME PATIENT 13.7 SEC (12.2-14.7)
[2018-05-17 18:36] LABS: BILIRUBIN,URINE NEGATIVE (NEGATIVE); CLARITY,URINE CLEAR; COLOR,URINE YELLOW; GLUCOSE, URINE (UA) 3+ (NEGATIVE); KETONES,URINE NEGATIVE (NEGATIVE); LEUKOCYTE ESTERASE ,URINE 1+ (NEGATIVE); NITRITE,URINE NEGATIVE (NEGATIVE); PH,URINE 6 (5-9); PROTEIN,URINE 1+ (NEGATIVE); UROBILINOGEN,URINE NORMAL (NORMAL)
[2018-05-17 18:42] LABS: ALANINE AMINOTRANSFERASE 30 U/L (0-55); ALBUMIN 3.9 GM/DL (3.2-4.5); ALKALINE PHOSPHATASE 128 U/L (40-136); BILIRUBIN,TOTAL 0.3 MG/DL (0.1-1.0); BUN/CREATININE RATIO 14; CALCIUM 9.8 MG/DL (8.5-10.1); CARBON DIOXIDE 22 MMOL/L (21-32); CHLORIDE 101 MMOL/L (98-107); CREATININE SERUM 0.87 MG/DL (0.60-1.30); GFR ESTIMATED > 60; GLUCOSE 305 MG/DL (70-105); POTASSIUM 3.8 MMOL/L (3.6-5.0); SODIUM 136 MMOL/L (135-145); TOTAL PROTEIN 6.7 GM/DL (6.4-8.2)
[2018-05-17 18:45] LABS: BACTERIA,URINE NEGATIVE /HPF; SQUAMOUS EPITHELIAL CELL,UR 0-2 /HPF; WBC,URINE 0-2 /HPF
--- NOTE | 2018-05-17 19:01 | Diagnostic Imaging Report ---
INDICATION: Cough, fever, and shortness of breath. Comparison is made with prior examination from 05/13/2018. FINDINGS: There is cardiomegaly. The mediastinum is unremarkable. Pacemaker overlies the left hemithorax. There is no pleural effusion or pneumothorax. IMPRESSION: No acute cardiopulmonary abnormality. Cardiomegaly. Dictated by: Dictated on workstation # [id number]
[2018-05-17] MEDS ORDERED: NS IV 1000 ML 1,000 ML IV SCH (19:17)
[2018-05-17] MEDS ORDERED: NS IV 1000 ML 1,000 ML IV ONE (19:17)
--- NOTE | 2018-05-17 19:28 | NUR ---
Report given to SHRAVAN Jaquez
[2018-05-18 00:14] VITALS: BP 126/57
== END 2018-05-18 00:14 | disposition home or self-care (01) ==
LOC: EDUNIT# 17:19 → ER 17:21
DX: B34.9 Viral infection, unspecified (principal); E86.0 Dehydration; J44.9 Chronic obstructive pulmonary disease, unspecified; E78.00 Pure hypercholesterolemia, unspecified; I25.2 Old myocardial infarction; K21.9 Gastro-esophageal reflux disease without esophagitis; K58.9 Irritable bowel syndrome, unspecified; G43.909 Migraine, unspecified, not intractable, without status migrainosus; E11.40 Type 2 diabetes mellitus with diabetic neuropathy, unspecified; F41.9 Anxiety disorder, unspecified; F32.9 Major depressive disorder, single episode, unspecified; Z87.448 Personal history of other diseases of urinary system; Z86.010 Personal history of colon polyps; Z87.19 Personal history of other diseases of the digestive system; Z82.49 Family history of ischemic heart disease and other diseases of the circulatory system; Z88.0 Allergy status to penicillin; Z88.2 Allergy status to sulfonamides; Z88.6 Allergy status to analgesic agent; Z88.8 Allergy status to other drugs, medicaments and biological substances; Z88.5 Allergy status to narcotic agent; Z87.01 Personal history of pneumonia (recurrent); Z87.440 Personal history of urinary (tract) infections; Z79.01 Long term (current) use of anticoagulants; Z79.4 Long term (current) use of insulin; Z77.22 Contact with and (suspected) exposure to environmental tobacco smoke (acute) (chronic); Z90.49 Acquired absence of other specified parts of digestive tract; Z98.890 Other specified postprocedural states; Z95.810 Presence of automatic (implantable) cardiac defibrillator; Z90.710 Acquired absence of both cervix and uterus; Z95.0 Presence of cardiac pacemaker
CPT/HCPCS: 36415; 71045; 80053; 81000; 83605; 85025; 85610; 85730; 87040; 87088; 87430; 87804

== ENCOUNTER 2018-05-22 17:30 | Emergency (ER) | payer MEDICARE ==
[~2018-05-22] VITALS: Ht 165.1 cm; Wt 98.0 kg
--- OUTSIDE RECORDS SUMMARY | 2018-05-22 17:36 | XMS REPORT | Clinical Summary ---
Author Author [facility] Organization [facility] Address Unknown Phone Unavailable Care Team Providers Care Sew Out Operator Name Role Phone Belia Reid MD PCP Source Comments Some departments are not documenting in the electronic medical record. If you do not see the information that you expected, contact Release of Information in the Health Information Management department at [phone] for further assistance in locating additional records.[facility] Allergies Comments Active Allergy Reactions Severity [...] enacarbil 300 Take one 90 tablet 3 01/23/201 mg TbER tablet by 9 mouth at bedtime daily. Active Problems Problem Noted Date Type 2 [...] recently Kidney stones 08/24/2016 Overview: -- 10/15/16: Resource Specialist Teacher evaluation non-obstructing stone. CT shows a 4.6 [...] Tier Exception-DENIED) 03/07/2018 Telephone Endocrinology, Metabolism & Genetics Calvin Tripp APRN 02/27/2018 Refill Endocrinology, Metabolism & Genetics Calvin Tripp APRN Medication Problem (Lantus refills/[facility]) 02/21/2018 Telephone Endocrinology from Last 3 Months Family History Medical [...] Taken Vital Sign Reading 03/20/2018 12:54 PM NANOSYSTEMS ENGINEER Blood Pressure 145/71 03/20/2018 12:54 PM NANOSYSTEMS ENGINEER Pulse 64 - Temperature - - Respiratory Rate - - Oxygen Saturation - - Inhaled Oxygen - Concentration 03/20/2018 12:54 PM NANOSYSTEMS ENGINEER Weight 97.9 kg (215 lb 14.4 oz) 03/20/2018 12:54 PM NANOSYSTEMS ENGINEER Height 164.6 cm (5' 4.8") 03/20/2018 12:54 PM NANOSYSTEMS ENGINEER Body Mass Index 36.15 Plan of Treatment [...] 9.9 (04/01/2017 No Josee, Component 10:37 AM NANOSYSTEMS ENGINEER) NAHEED Simpson Results Not on filefrom Last 3 Months Insurance Type Payer Benefit Subscriber ID Effective Phone Address Plan / Dates Group Medicare HUMANA MEDICARE HUMANA xxxxxxxxx [id number] CHOICE PPO resent Advance Directives Patient has advance care planning documents on file. For more information, please contact: [facility] [address] [place] [address]
--- OUTSIDE RECORDS SUMMARY | 2018-05-22 17:37 | XMS REPORT | Encounter Summary ---
Author Author [facility] Organization [facility] Address Unknown Phone Unavailable Care Team Providers Care Director Operating Room Name Role Phone Belia Reid MD PCP Reason for Visit * Reason Comments Medication Refill Encounter Details Care Team Description Date Type Department Calvin Tripp APRN [address] Ortho/[facility] Pav[facility] [address] [place] [address] [phone] 03/11/2018 Refill [facility] [address] [place] [phone] Social History Date Tobacco Use Types Packs/Day Years Used Never Smoker Smokeless Tobacco: Never Used Alcohol Use Drinks/Week oz/Week Comments No 0 Standard 0.0 drinks or equivalent Sex Assigned at Date Recorded Not on file Industry Job Start Date Occupation Not on file Not on file Not on file Travel End Travel History Travel Start No recent travel history available. documented as of this encounter Plan of Treatment Not on filedocumented as of this encounter Goals Goal Patient Associated Recent Progress Patient-Stat Author Goal Type Problems ed? HEMOGLOBIN A1C < 7.5 Result 9.9 (04/01/2017 No Josee, Edilberto 10:37 AM MARKET RESEARCH EXECUTIVE) NAHEED Simpson documented as of this encounter Visit Diagnoses Not on filedocumented in this encounter
--- OUTSIDE RECORDS SUMMARY | 2018-05-22 17:37 | XMS REPORT | Encounter Summary ---
Author Author [facility] Organization [facility] Address Unknown Phone Unavailable Care Team Providers Care Test Engineering Manager Name Role Phone Belia Reid MD PCP Reason for Visit * Reason Comments Medication Problem Lantus refills/[facility] Encounter Details Care Team Description Date Type Department Calvin Tripp APRN [address] Ortho[facility]Med Pavilion [address] [place] [address] Medication Problem (Lantus refills/[facility]) 02/21/2018 Telephone [facility] [address] [address] Social History Date Tobacco Use Types [...] history available. documented as of this encounter Miscellaneous Notes * Telephone Encounter - Laura Verdin RN - 02/21/2018 3:40 PM SLUDGE CONTROL OPERATOR Contacted pt and message given Understanding verbalized Closing encounter GE CONTROL OPERATOR * Telephone Encounter - Calvin Tripp APRN - 02/21/2018 3:22 PM SLUDGE CONTROL OPERATOR Thank you for sending the lantus refill. She may increase the metformin if she can tolerate it without GI upset. May add 1 extra tab/day. GE CONTROL OPERATOR * Telephone Encounter - Laura Verdin RN - 02/21/2018 2:06 PM SLUDGE CONTROL OPERATOR Pt called, verbalized she had called a week ago and had heard from anyone about her Lantus refill concerns She has been out of Lantus for a week now, and needs the script sent to [facility] pharmacy She is only wanting a 30 day supply sent to [facility] with refills She verbalized she is using Lantus 38 units at this time, not 20 units as previous script indicates She is also asking, if she should increase her Metformin dosing, till she receives her Lantus in 10 days or so? Tip, please advise, thank you. GE CONTROL OPERATOR documented in this encounter Plan of Treatment Not on filedocumented as of this encounter Goals Goal Patient Associated Recent Progress Patient-Stat Author Goal Type Problems ed? HEMOGLOBIN A1C < 7.5 Result 9.9 (04/01/2017 No Josee, Component 10:37 AM SLUDGE CONTROL OPERATOR) NAHEED Simpson documented as of this encounter Visit Diagnoses Not on filedocumented in this encounter
--- OUTSIDE RECORDS SUMMARY | 2018-05-22 17:37 | XMS REPORT | Encounter Summary ---
Author Author [facility] Organization [facility] Address Unknown Phone Unavailable Care Team Providers Care Mri Manager Name Role Phone Belia Reid MD PCP Reason for Visit * Reason Comments Medication Refill Encounter Details Care Team Description Date Type Department Nathan Crenshaw MD [address] Ortho/Med Pavilion [address] [place], [place] [phone] 03/26/2018 Refill [facility] [address] [place] [phone] Social History Date Tobacco Use Types Packs/Day [...] 9.9 (04/01/2017 No Josee, Component 10:37 AM SUBCONTRACTS MANAGER) NAHEED Simpson documented as of this encounter Visit Diagnoses Not on filedocumented in this encounter
--- OUTSIDE RECORDS SUMMARY | 2018-05-22 17:37 | XMS REPORT | Encounter Summary ---
Author Author [facility] Organization [facility] Address Unknown Phone Unavailable Care Team Providers Care Transmission Systems Operator Name Role Phone Belia Reid MD PCP Reason for Visit * Reason Comments Paperwork Mobile Med Care/Respiratory/Sleep Therapy Orders Encounter Details Care Team Description Date Type Department Nathan Crenshaw MD [address] Ortho/Med Pavilion [address] [place], [place] [phone] Paperwork (Mobile Med Care/Respiratory/Sleep Therapy Orders) 03/26/2018 Telephone [facility] [address] [address] Social History Date Tobacco Use [...] Laura Verdin RN - 03/26/2018 8:25 AM CARD TABLE ATTENDANT Orders for Overnight Oximetry completed, signed and faxed to [facility]. Faxed with demographics, insurance information Fax confirmation 03/25/18 @ 1300 PM Form to PRR to scan to chart Closing encounter TABLE ATTENDANT documented in this encounter Plan of Treatment Not on filedocumented as of this encounter Goals Goal Patient Associated Recent Progress Patient-Stat Author Goal Type Problems ed? HEMOGLOBIN A1C < 7.5 Result 9.9 (04/01/2017 No Josee, Edilberto 10:37 AM CARD TABLE ATTENDANT) NAHEED Simpson documented as of this encounter Visit Diagnoses Not on filedocumented in this encounter
--- OUTSIDE RECORDS SUMMARY | 2018-05-22 17:37 | XMS REPORT | Encounter Summary ---
Author Author [facility] Organization [facility] Address Unknown Phone Unavailable Care Team Providers Care Closing Specialist Name Role Phone Belia Reid MD PCP Reason for Visit * Reason Comments Medication Question Neurontin Encounter Details Care Team Description Date Type Department Nathan Crenshaw MD [address] Orth[facility]ilion [address] [place] [address] [phone] Medication Question (Neurontin) 03/27/2018 Telephone [facility] [address] [place] [address] Social History Date Tobacco Use Types Packs/Day [...] Babita Conteh LPN - 04/01/2018 12:28 PM 3RD GRADE READING TEACHER Called [employer] and advised Patient has no allergy to Gabapentin She has been on it for several months without issue They removed allergy from record and will ship it today, Patient notified 3RD GRADE READING TEACHER * Telephone Encounter - Nathan Crenshaw MD - 03/31/2018 8:49 AM 3RD GRADE READING TEACHER I reviewed my note, which says that she was already on gabapentin, and that I just adjusted the dose. Could you confirm this with her? If she was already taking the medication they should go ahead and fill the script for the same medication, generic gabapentin. 3RD GRADE READING TEACHER * Telephone Encounter - Hanna Kelly RN - 03/27/2018 11:01 AM 3RD GRADE READING TEACHER Received fax from [facility] Patient reports Neurotin Cap 100 mg allergy and there is potential for cross sensitivity . They are wanting confirmation it is okay to fill this med. 3RD GRADE READING TEACHER documented in this encounter Plan of Treatment Not on filedocumented as of this encounter Goals Goal Patient Associated Recent Progress Patient-Stat Author Goal Type Problems ed? HEMOGLOBIN A1C < 7.5 Result 9.9 (04/01/2017 No Josee, Component 10:37 AM 3RD GRADE READING TEACHER) NAHEED Simpson documented as of this encounter Visit Diagnoses Not on filedocumented in this encounter
--- OUTSIDE RECORDS SUMMARY | 2018-05-22 17:37 | XMS REPORT | Encounter Summary ---
Author Author [facility] Address Unknown Phone Unavailable Care Team Providers Care Software Design Engineer Name Role Phone Belia Reid MD PCP Reason for Visit * Reason Comments Diabetes Encounter Details Care Team Description Date Type Department Nathan Crenshaw MD [address] Ortho[facility]Med [facility] [address] [place] [address] [phone] Uncontrolled type 2 diabetes mellitus with hyperglycemia ( HCC) (Primary Dx); Dyslipidemia; Diabetic polyneuropathy associated with type 2 diabetes mellitus (HCC) 03/20/2018 Office Visit [facility] [address] [address] Social History Date Tobacco Use [...] history available. documented as of this encounter Last Filed Vital Signs Time Taken Vital Sign Reading 03/20/2018 12:54 PM CORPORATE LIBRARIAN Blood Pressure 145/71 03/20/2018 12:54 PM CORPORATE LIBRARIAN Pulse 64 - Temperature - - Respiratory Rate - - Oxygen Saturation - - Inhaled Oxygen - Concentration 03/20/2018 12:54 PM CORPORATE LIBRARIAN Weight 97.9 kg (215 lb 14.4 oz) 03/20/2018 12:54 PM CORPORATE LIBRARIAN Height 164.6 cm (5' 4.8") 03/20/2018 12:54 PM CORPORATE LIBRARIAN Body Mass Index 36.15 documented in this encounter Patient Instructions * Patient Instructions* Nathan Crenshaw MD - 03/20/2018 1:00 PM CORPORATE LIBRARIAN 1. The hemoglobin A1c is 9.6, down [...] to see you again in 3 months. ORATE LIBRARIAN documented in this encounter Progress Notes * Nathan Crenshaw MD - 03/20/2018 1:00 PM CORPORATE LIBRARIAN Date of Service: 03/20/2018 Subjective: Diana Gregory is a 72 y.o. female. History of Present IllnessI am seeing Mrs. Gregory for the first time; she was previously seen at [facility] by Calvin Tripp. She takes metformin ER, [...] in the past. She has a pacemaker/defibrillator. (DOC:[id number]) Review of Systems Constitutional: Positive for fatigue [...] will see her again in 3 months. (DOC:[id number]) ORATE LIBRARIAN * Nathan Crenshaw MD - 03/20/2018 1:00 PM CORPORATE LIBRARIAN Date of Service: 03/20/2018 Entered in error ORATE LIBRARIAN documented in this encounter Plan of Treatment Not on filedocumented as of this encounter Goals Goal Patient Associated Recent Progress Patient-Stat Author Goal Type Problems ed? HEMOGLOBIN A1C < 7.5 Result 9.9 (04/01/2017 No Josee, Component 10:37 AM CORPORATE LIBRARIAN) NAHEED Simpson documented as of this encounter Visit Diagnoses Diagnosis Uncontrolled type 2 diabetes mellitus with hyperglycemia (HCC) - Primary Dyslipidemia Other and unspecified hyperlipidemia Diabetic polyneuropathy associated with type 2 diabetes mellitus (HCC) documented in this encounter
--- OUTSIDE RECORDS SUMMARY | 2018-05-22 17:37 | XMS REPORT | Encounter Summary ---
Author Author [facility] Organization [facility] Address Unknown Phone Unavailable Care Team Providers Care Membership Secretary Name Role Phone Belia Reid MD PCP Reason for Visit * Reason Comments Medication Refill Encounter Details Care Team Description Date Type Department Calvin Tripp APRN [address] Ortho/Med Pavilion [address] [place] [address] [phone] 02/27/2018 Refill [facility] [address] 5 [place] [address] Social History Date Tobacco Use Types Packs/Day [...] 9.9 (04/01/2017 No Josee, Edilberto 10:37 AM METAL SPRAYING MACHINE OPERATOR) NAHEED Simpson documented as of this encounter Visit Diagnoses Not on filedocumented in this encounter
--- OUTSIDE RECORDS SUMMARY | 2018-05-22 17:37 | XMS REPORT | Encounter Summary ---
Author Author [facility] Organization [facility] Address Unknown Phone Unavailable Care Team Providers Care Audio Visual Production Specialist Name Role Phone Belia Reid MD PCP Reason for Visit * Reason Comments Other Lantus Tier Exception-DENIED Encounter Details Care Team Description Date Type Department Calvin Tripp APRN [address] Orth[facility]Med [place] [address] [place] [address] [phone] Other (Lantus Tier Exception-DENIED) 03/07/2018 Telephone [facility] [address] [place] [address] Social History Date Tobacco Use Types Packs/Day [...] Safia Velazquez RN - 03/07/2018 3:13 PM DRIER ATTENDANT Called pt to update her Pt verbalized understanding R ATTENDANT * Telephone Encounter - Calvin Tripp APRN - 03/07/2018 3:07 PM DRIER ATTENDANT I would suggest that she use NPH generic vials from [employer] for now, 15 units QAM and 10 units at dinner. She can buy these for $25/bottle without a prescription R ATTENDANT * Telephone Encounter - Safia Velazquez RN - 03/07/2018 2:58 PM DRIER ATTENDANT Received fax from [facility] States Tier Exeption for lantus has been denied This is d/t the fact that there are no lower-cost alternatives Lantus is the lowest priced medication Routing to Tip Tripp APRN to make her aware, and for suggestions? R ATTENDANT * Telephone Encounter - Safia Velazquez RN - 03/07/2018 9:18 AM DRIER ATTENDANT Pt called and LVM States we sent a script in a few weeks ago to mail delivery [employer] for Lantus, but she hasn't received it yet When she called [facility] to check status, they told her she has a copay on it States her Lantus insulin is too expensive for her to afford Copay is going to be $130 for 3 month supply at [facility] It would be $90 for one month supply at [facility] She can get one pen at [facility] for $47 She only makes $700/month Pt states [facility] says all the insulin is expensive right now [facility] says this office could try to do Tier Exception [facility] # [phone] Pt has been off the insulin for a while She states her blood sugar this morning was 342 RN called [facility] to discuss Tier Exception Tier exception number [phone] Alternatives to Lantus: Oliverio Tristan Tresiba Lantus is the cheapest option out of those [facility] explained "In order to get tier exception, provider must explain why the lower-cost alternative medication would not be effective" RN explained that there are no other lower-cost alternatives, according to the information they provided Clinical questions were answered They are sending note to clinical team for review, will have response within 24- 48 hrs Reference # [id number] R ATTENDANT documented in this encounter Plan of Treatment Not on filedocumented as of this encounter Goals Goal Patient Associated Recent Progress Patient-Stat Author Goal Type Problems ed? HEMOGLOBIN A1C < 7.5 Result 9.9 (04/01/2017 No Josee, Component 10:37 AM DRIER ATTENDANT) NAHEED Simpson documented as of this encounter Visit Diagnoses Not on filedocumented in this encounter
--- OUTSIDE RECORDS SUMMARY | 2018-05-22 17:37 | XMS REPORT | Encounter Summary ---
Author Author [facility] Organization [facility] Address Unknown Phone Unavailable Care Team Providers Care Sand Mixer Operator Name Role Phone Belia Reid MD PCP Reason for Visit * Reason Comments Medication Refill Encounter Details Care Team Description Date Type Department Calvin Tripp APRN [address] Ortho/Med Pavilion [address] [place] [address] [phone] Type 2 diabetes mellitus with hyperglycemia, without long- term current use of insulin (HCC) (Primary Dx) 03/18/2018 Refill [facility] [address] [place] [address] Social History Date Tobacco Use Types Packs/Day [...] 9.9 (04/01/2017 No Josee, Component 10:37 AM DUCT INSTALLER) NAHEED Simpson documented as of this encounter Visit Diagnoses Diagnosis Type 2 diabetes mellitus with hyperglycemia, without long-term current use of insulin (HCC) - Primary documented in this encounter
--- OUTSIDE RECORDS SUMMARY | 2018-05-22 17:37 | XMS REPORT | Encounter Summary ---
Author Author [facility] Organization [facility] Address Unknown Phone Unavailable Care Team Providers Care International Freight Forwarder Name Role Phone Belia Reid MD PCP Reason for Visit * Reason Comments High Blood Sugar Encounter Details Care Team Description Date Type Department Nathan Crenshaw MD [address] Ortho/Med Pavilion Lvl [address] [place] [address] [phone] High Blood Sugar 03/21/2018 Telephone [facility] [address] [place] [address] Social History Date Tobacco Use Types Packs/Day [...] Geni June, SHRAVAN - 03/21/2018 4:23 PM ADMITTING MANAGER Patient left a VM stating she started [...] will call next week with an update. TTING MANAGER documented in this encounter Plan of Treatment Not on filedocumented as of this encounter Goals Goal Patient Associated Recent Progress Patient-Stat Author Goal Type Problems ed? HEMOGLOBIN A1C < 7.5 Result 9.9 (04/01/2017 No Josee, Component 10:37 AM ADMITTING MANAGER) NAHEED Simpson documented as of this encounter Visit Diagnoses Not on filedocumented in this encounter
--- OUTSIDE RECORDS SUMMARY | 2018-05-22 17:37 | XMS REPORT | Encounter Summary ---
Author Author [facility] Organization [facility] Address Unknown Phone Unavailable Care Team Providers Care Urban Designer Name Role Phone Belia Reid MD PCP Reason for Visit * Reason Comments Medication Refill Encounter Details Care Team Description Date Type Department Nathan Crenshaw MD [address] Ortho/Med Pavilion Lvl [address] [place], [place] [id number] Diabetic polyneuropathy associated with type 2 diabetes mellitus (HCC) 03/25/2018 Refill [facility] [address] [place] [phone] Social History Date Tobacco Use Types Packs/Day [...] 9.9 (04/01/2017 No Josee, Component 10:37 AM BASE FILLER OPERATOR) NAHEED Simpson documented as of this encounter Visit Diagnoses Diagnosis Diabetic polyneuropathy associated with type 2 diabetes mellitus (HCC) documented in this encounter
[2018-05-22] MEDS ORDERED: DEXAMETHASONE 4 MG/ML SDV (DECADRON) IH ONE (19:00)
[2018-05-22] MEDS ORDERED: RT-ALBUTEROL/IPRATROPIUM 3 ML (DUONEB) VIAL INH ONE (19:00)
--- NOTE | 2018-05-22 19:48 | Diagnostic Imaging Report ---
INDICATION: Shortness of air. COMPARISON: 05/17/2018. TECHNIQUE: Two views of the chest were obtained. FINDINGS: Small nodular opacity in the periphery of the left lower lung zone. No pleural effusion or pneumothorax. Stable cardiomediastinal silhouette with pacemaker/ICD. Lower thoracic chronic compression deformity status post vertebroplasty. IMPRESSION: Left basilar pulmonary nodular opacity may represent a residual focus of pneumonia or atelectasis. Dictated by: Dictated on workstation # [id number]
[2018-05-22] MEDS ORDERED: LEVO750T9 PO (20:36)
--- NOTE | 2018-05-22 20:37 | ED Respiratory ---
General Chief Complaint: Respiratory Problems Stated Complaint: SOB Nursing Triage Note: PT TO RM 4 BY WHEELCHAIR WITH COMPLAINT OF SOA. PT STATES STARTED THIS AFTERNOON. PT WAS RECENTLY HOSPITALIZED FOR PNUEMONIA. PT IS ON HOME O2. Source: patient Exam Limitations: no limitations History of Present Illness Date Seen by Provider: May 22, 2018 Time Seen by Provider: 18:30 Initial Comments Patient presents to the emergency room with complaints of paroxysms of uncontrolled coughing. She states her temperature has been slightly elevated today at about 99. She has taken 3 nebulizer treatments today but is still having some difficulties. She has coarse upper airway sounds with her cough. Patient had a prolonged hospital admission April 21 after having cervical spine surgery. See documentation from that visit for more details. Patient is also had an ER visit on May 17. She was dismissed home after workup. Mild wheezing is observed on exam today. Vital signs are stable. Patient is on her home rate of nasal cannula oxygen. Allergies and Home Medications Allergies Coded Allergies: oxycodone (Verified Allergy, Mild, 05/04/18) HALLUCINATIONS Penicillins (Unverified Allergy, Unknown, Pt has received Cefepime & Ceftriaxone in the past w/o issue, 01/18/17) Sulfa (Sulfonamide Antibiotics) (Verified Allergy, Unknown, 06/08/16) aspirin (Verified Adverse Reaction, Mild, ASPIRIN SENSITIVE, 06/08/16) sumatriptan (Verified Adverse Reaction, Mild, PALPITATIONS, 06/08/16) Home Medications Acetaminophen 650 Mg Tablet.er, 650 MG PO Q4H Prescribed by: NANNETTE REVELES on 05/01/18 1042 Apixaban 5 Mg Tablet, 5 MG PO Q12H Prescribed by: YASMANI HAMILTON on 05/01/18 0906 Buspirone HCl 5 Mg Tablet, 5 MG PO TID, (Reported) Diltiazem HCl 240 Mg Cap.er.24h, 240 MG PO DAILY Prescribed by: YASMANI HAMILTON on 05/01/18 0906 Doxepin HCl 10 Mg Capsule, 20 MG PO HS Prescribed by: NANNETTE REVELES on 05/13/18 1711 Hydrocodone Bit/Acetaminophen 1 Tab Tab, 1 TAB PO Q4H PRN for PAIN-MODERATE Prescribed by: NANNETTE REVELES on 05/01/18 1041 Insulin Determir 1,000 Units/10 Ml Soln, 50 UNIT SQ DAILY Prescribed by: NANNETTE REVELES on 05/01/18 1041 Ipratropium/Albuterol Sulfate 3 Ml Ampul.neb, 3 ML NEB Q6H PRN for SHORTNESS OF BREATH, (Reported) Levofloxacin 750 Mg Tablet, 750 MG PO DAILY Prescribed by: BRADY BROWN on 05/22/182035 Lorazepam 0.5 Mg Tablet, 0.5 MG PO TID PRN for ANXIETY Prescribed by: NANNETTE REVELES on 05/01/18 104 Magnesium Oxide 400 Mg Tablet, 400 MG PO BIDPC Prescribed by: YASMANI HAMILTON on 05/01/18 0906 Melatonin 3 Mg Tablet, 6 MG PO HS Prescribed by: NANNETTE REVELES on 05/01/18 104 Metformin HCl 500 Mg Tab.er.24h, 1,000 MG PO BID TAKE 2 (500MG) TABS Prescribed by: NANNETTE REVELES on 05/01/18 104 Metoprolol Tartrate 100 Mg Tablet, 100 MG PO BID, (Reported) Miconazole Nitrate 90 Gm Powder, 0 GM TOP BID to groin twice a day for 2 weeks Prescribed by: NANNETTE REVELES on 05/13/18 170 Omeprazole 40 Mg Capsule.dr, 40 MG PO BID, (Reported) Pramipexole Di-HCl 1 Mg Tablet, 1 MG PO 1700, (Reported) Sennosides 8.6 Mg Tablet, 8.6 MG PO BID Prescribed by: NANNETTE REVELES on 05/01/18 104 Patient Home Medication List Home Medication List Reviewed: Yes Review of Systems Review of Systems Constitutional: no symptoms reported EENTM: see HPI Respiratory: see HPI Cardiovascular: no symptoms reported Gastrointestinal: no symptoms reported Genitourinary: no symptoms reported : No Musculoskeletal: no symptoms reported Skin: no symptoms reported Psychiatric/Neurological: No Symptoms Reported Hematologic/Lymphatic: No Symptoms Reported Past Yifztdj-Hhwqji-Upvizn Hx Past Med/Social Hx: Reviewed and Corrections made Patient Social History Alcohol Use: Denies Use Recreational Drug Use: No Smoking Status: Never a Smoker 2nd Hand Smoke Exposure: Yes Recent Foreign Travel: No Contact w/Someone Who Travel: No Recent Infectious Disease Expo: No Recent Hopitalizations: Yes Immunizations Up To Date Tetanus Booster (TDap): Unknown PED Vaccines UTD: No Date of Pneumonia Vaccine: Dec 02, 2017 Date of Influenza Vaccine: Jan 24, 2018 Seasonal Allergies Seasonal Allergies: Yes Past Medical History Surgeries: Yes (LAP NISSIEN) Abdominal, Appendectomy, Cardiac, Defibrillator, Eye Surgery, Gallbladder, Hysterectomy, Oophorectomy, Orthopedic, Pacemaker, Tonsillectomy Respiratory: Yes (History of respiratory failure and intubation) Asthma, Pneumonia, Chronic Bronchitis, COPD Currently Using CPAP: No Currently Using BIPAP: No Cardiac: Yes (SUDDEN CARDIAC ARREST IN 2010 WHEN GETTING PREPPED FOR SURGERY, ) High Cholesterol, Irregular Heartbeat Neurological: Yes (PERIPHERAL NEUROPATHY--HANDS AND FEET) Headaches /Migraines, Neuropathy 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 Disorders: No Female 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 Disorders: Denies UPSET OPERATOR History: Menopausal Sexually Transmitted Disease: No Genitourinary: Yes Kidney Infection, Bladder Infection, Kidney Stones, UTI-Chronic Gastrointestinal: Yes (S/P CORNELIUS FUNDOPLICATION; ESOPHAGEAL STRICTURES/ DILATIONS; DYSPHAGIA) Gastroesophageal Reflux, Diverticulosis, Hemorrhoids, Polyps, C-Diff, Hiatal Hernia, Ulcer, Irritable Bowel Musculoskeletal: Yes Degenerate Disk Disease, Arthritis, Fibromyalgia, Chronic Back Pain, Fractures Endocrine: Yes Diabetes, Insulin dep, Diabetes, Non-Insulin dep HEENT: Yes Cataract Loss of Vision: Denies Hearing Impairment: Denies Cancer: No Psychosocial: Yes Anxiety, Depression Integumentary: Yes Pruritis Blood Disorders: No Adverse Reaction/Blood Tranf: No Family Medical History Alzheimer's disease 19 FATHER Cardiovascular disease 19 FATHER 19 MOTHER Completed stroke 19 MOTHER Hypertension 19 FATHER 19 MOTHER Myocardial infarction 19 FATHER 19 MOTHER No Family History of: Diabetes mellitus Physical Exam Vital Signs - First Documented 05/22/18 05/22/18 18:16 19:17 Temp 99.3 Pulse 84 Resp 20 B/P (MAP) 154/85 (108) Pulse Ox 97 O2 Delivery Room Air O2 Flow Rate 2.00 Capillary Refill : Less Than 3 Seconds Height: 5'5.00" Weight: 216lbs. 0.0oz. 97.344941dp; 36.6 BMI Method:Stated General Appearance: WD/WN, no apparent distress HEENT: PERRL/EOMI, normal ENT inspection, other (Coarse rattling upper airway sounds with cough) Neck: normal inspection Respiratory: no respiratory distress, no accessory muscle use, wheezing (Mild) Cardiovascular: regular rate, rhythm, no edema, no murmur Gastrointestinal: normal bowel sounds, non tender, soft Extremities: non-tender, other (Mild lower extremity edema) Neurologic/Psychiatric: sizer machine II-XII nml as tested, no motor/sensory deficits, alert, normal mood/affect, oriented x 3 Skin: normal color, warm/dry Procedures/Interventions Date of ETT Placement: Apr 21, 2018 Time of ETT Placement: 1744 Progress/Results/Core Measures Suspected Sepsis Recent Fever Within 48 Hours: No Infection Criteria Present: None New/Unexplained Altered Menta: No Sepsis Screen: No Definite Risk SIRS Temperature:99.3 Pulse: 84 Respiratory Rate: 20 Blood Pressure 154 /85 Mean: 108 Results/Orders My Orders Orders - BRADY HOFFMAN MD Chest Pa/Lat (2 View) (05/22/18 18:46) Albuterol/Ipra Inhalation Soln (Duoneb I (05/22/18 19:00) Dexamethasone Injection (Decadron Inject (05/22/18 19:00) Svn Small Volume Nebulizer (05/22/18 18:46) Levofloxacin Tablet (Levaquin Tablet) (05/22/18 20:45) Medications Given in ED Vital Signs/I&O 05/22/18 05/22/18 05/22/18 18:16 19:17 20:50 Temp 99.3 98.7 Pulse 84 84 Resp 20 16 B/P (MAP) 154/85 (108) 126/62 (83) Pulse Ox 97 97 O2 Delivery Room Air Nasal Cannula Nasal Cannula O2 Flow Rate 2.00 2.00 Capillary Refill : Less Than 3 Seconds Blood Pressure Mean: 108 Progress Note : Progress Note Patient received a DuoNeb treatment as well as some inhaled dexamethasone. This did improve her symptoms. Coarse breath sounds seem to be coming from the upper airway. I advised humidifying her oxygen to help with comfort and mucus production. Patient will try this at home. Her chest x-ray showed questionable pulmonary infiltrate. Levaquin was prescribed as a precaution. Oral steroids were not prescribed due to diabetes and control of symptoms on inhaled treatments. Diagnostic Imaging Diagonstic Imaging: Xray Plain Films/CT/US/NM/MRI: chest Comments Chest x-ray viewed by me and report reviewed. See report below: NAME: BRAYDON ARBOLEDA Felicita [facility] REC#: [id number] PT STATUS: DEP ER : 1945 PHYSICIAN: BRADY HOFFMAN MD ADMIT DATE: 05/22/18/ER Signed Date of Exam: 05/22/18 CHEST PA/LAT (2 VIEW) INDICATION: Shortness of air. COMPARISON: 05/17/2018. TECHNIQUE: Two views of the chest were obtained. FINDINGS: Small nodular opacity in the periphery of the left lower lung zone. No pleural effusion or pneumothorax. Stable cardiomediastinal silhouette with pacemaker/ICD. Lower thoracic chronic compression deformity status post vertebroplasty. IMPRESSION: Left basilar pulmonary nodular opacity may represent a residual focus of pneumonia or atelectasis. Dictated by: Dictated on workstation # [id number] Dict: 05/22/181943 Trans: 05/22/182217 Interpreted by: ALVA HOWARD MD Electronically signed by: ALVA HOWARD MD 05/22/182217 Departure Impression Primary Impression: COPD exacerbation Additional Impressions: Rhonchi Pulmonary infiltrate Disposition: HOME, SELF-CARE Condition: Improved Departure-Patient Inst. Decision time for Depature: 20:34 Referrals: NANNETTE REVELES DO (PCP/Family) Primary Care Physician Patient Instructions: Community-Acquired Pneumonia, Adult (DC) Add. Discharge Instructions: Continue your inhaled medications as previously directed. Try humidifying the oxygen from your concentrator with sterile water. Sanitize the water take frequently. See university extension specialist's instructions for further details. Complete your antibiotics as directed. Contact her primary care provider and welt edge rounder as soon as possible for follow-up. Return to care if you have worsening symptoms. All discharge instructions reviewed with patient and/or family. Voiced understanding. Scripts Levofloxacin (Levaquin) 750 Mg Tablet 750 MG PO DAILY, #4 TAB Prov: BRADY HOFFMAN MD 05/22/18 Copy Copies To 1: NANNETTE REVELES DO Copies To 2: THERESA COOK JOSHUA T MD May 22, 2018 20:37
[2018-05-22] MEDS ORDERED: LEVOFLOXACIN 500 MG TAB (LEVAQUIN) PO ONE (20:45)
[2018-05-22 20:50] VITALS: BP 126/62
== END 2018-05-22 20:52 | disposition home or self-care (01) ==
LOC: EDUNIT# 17:30 → ER 17:31
DX: J44.1 Chronic obstructive pulmonary disease with (acute) exacerbation (principal); R91.8 Other nonspecific abnormal finding of lung field; I25.2 Old myocardial infarction; E78.00 Pure hypercholesterolemia, unspecified; Z82.49 Family history of ischemic heart disease and other diseases of the circulatory system; G43.909 Migraine, unspecified, not intractable, without status migrainosus; E11.40 Type 2 diabetes mellitus with diabetic neuropathy, unspecified; K21.9 Gastro-esophageal reflux disease without esophagitis; K58.9 Irritable bowel syndrome, unspecified; F41.9 Anxiety disorder, unspecified; F32.9 Major depressive disorder, single episode, unspecified; Z86.010 Personal history of colon polyps; Z87.19 Personal history of other diseases of the digestive system; Z87.442 Personal history of urinary calculi; Z87.440 Personal history of urinary (tract) infections; Z88.5 Allergy status to narcotic agent; Z88.0 Allergy status to penicillin; Z88.2 Allergy status to sulfonamides; Z88.6 Allergy status to analgesic agent; Z88.8 Allergy status to other drugs, medicaments and biological substances; Z79.01 Long term (current) use of anticoagulants; Z79.51 Long term (current) use of inhaled steroids; Z79.4 Long term (current) use of insulin; Z77.22 Contact with and (suspected) exposure to environmental tobacco smoke (acute) (chronic); Z98.890 Other specified postprocedural states; Z90.49 Acquired absence of other specified parts of digestive tract; Z95.810 Presence of automatic (implantable) cardiac defibrillator; Z90.710 Acquired absence of both cervix and uterus; Z90.89 Acquired absence of other organs; Z87.01 Personal history of pneumonia (recurrent)
CPT/HCPCS: 71046; 94640; 94664

== ENCOUNTER 2018-05-26 17:56 | Emergency (ER) | payer MEDICARE ==
[~2018-05-26] VITALS: Ht 165.1 cm; Wt 94.3 kg
[~2018-05-26 17:56] MED LIST changes: +LEVO750T9 PO
--- NOTE | 2018-05-26 19:07 | NUR ---
After administration of SL Nitro patient del 48 HR, dizzy. Pt head lowered, oxygen placed. Dr notified.
[2018-05-26 19:21] LABS: BILIRUBIN,URINE NEGATIVE (NEGATIVE); CLARITY,URINE SLIGHTLY CLOUDY; COLOR,URINE YELLOW; GLUCOSE, URINE (UA) NEGATIVE (NEGATIVE); KETONES,URINE 1+ (NEGATIVE); LEUKOCYTE ESTERASE ,URINE 2+ (NEGATIVE); NITRITE,URINE NEGATIVE (NEGATIVE); PH,URINE 5 (5-9); PROTEIN,URINE 2+ (NEGATIVE); UROBILINOGEN,URINE NORMAL (NORMAL)
[2018-05-26 19:32] LABS: BACTERIA,URINE NEGATIVE /HPF; CALCIUM OXALATE CRYSTALS,UR MODERATE /LPF; WBC,URINE 0-2 /HPF
--- NOTE | 2018-05-26 19:56 | Diagnostic Imaging Report ---
EXAMINATION: CHEST (PA AND LATERAL) CLINICAL INDICATION: 72-year-old female, fever and shortness of breath. COMPARISON: May 22, 2018. FINDINGS: There is cervical spinal hardware. There is a cardiac assist device with right atrial and right ventricular leads. The leads appear intact. Stable and unremarkable appearance of the cardiomediastinal silhouette. There is no identified pneumothorax. There is no pleural effusion. There are kyphoplasty changes at the level of the thoracolumbar junction. Very mild predominantly linear opacities in the left midlung are unchanged and most likely relate to mild subsegmental atelectasis or scarring. There is no otherwise noted focal airspace consolidation. IMPRESSION: 1. Minimal linear opacities in the left midlung, likely relating to subsegmental atelectasis and/or scarring. 2. No identified acute cardiopulmonary abnormality. Dictated by: Dictated on workstation # [id number]
--- NOTE | 2018-05-26 21:09 | ED Respiratory ---
General Chief Complaint: Respiratory Problems Stated Complaint: COUGHING,CONGESTED,DIAG PNEUMONIA Nursing Triage Note: PATIENT STATES THAT SHE IS HERE FOR PNEUMONIA, SHE WAS TREATED WITH LEVAQUIN. SHE HAS NOT BEEN GETTING BETTER AFTER FINISHING THE LEVAQUIN AND DR REVELES TOLD HER TO COME TO THE HOSPITAL TODAY FOR A CHEST XRAY. THERE WAS NO OUTPATIENT ORDER AT THE HOSPITAL AND THE PATIENT WANTED TO HAVE IT DONE ANYWAYS AND CHOSE TO CHECK IN TO ER. Allergies and Home Medications Allergies Coded Allergies: oxycodone (Verified Allergy, Mild, 05/04/18) HALLUCINATIONS Penicillins (Unverified Allergy, Unknown, Pt has received Cefepime & Ceftriaxone in the past w/o issue, 01/18/17) Sulfa (Sulfonamide Antibiotics) (Verified Allergy, Unknown, 06/08/16) aspirin (Verified Adverse Reaction, Mild, ASPIRIN SENSITIVE, 06/08/16) sumatriptan (Verified Adverse Reaction, Mild, PALPITATIONS, 06/08/16) Home Medications Acetaminophen 650 Mg Tablet.er, 650 MG PO Q4H Prescribed by: NANNETTE REVELES on 05/01/18 1042 Apixaban 5 Mg Tablet, 5 MG PO Q12H Prescribed by: YASMANI HAMILTON on 05/01/18 0906 Buspirone HCl 5 Mg Tablet, 5 MG PO TID, (Reported) Diltiazem HCl 240 Mg Cap.er.24h, 240 MG PO DAILY Prescribed by: YASMANI HAMILTON on 05/01/18 09 Doxepin HCl 10 Mg Capsule, 20 MG PO HS Prescribed by: NANNETTE REVELES on 05/13/18 1711 Hydrocodone Bit/Acetaminophen 1 Tab Tab, 1 TAB PO Q4H PRN for PAIN-MODERATE Prescribed by: NANNETTE REVELES on 05/01/18 1041 Insulin Determir 1,000 Units/10 Ml Soln, 50 UNIT SQ DAILY Prescribed by: NANNETTE REVELES on 05/01/18 1041 Ipratropium/Albuterol Sulfate 3 Ml Ampul.neb, 3 ML NEB Q6H PRN for SHORTNESS OF BREATH, (Reported) Levofloxacin 750 Mg Tablet, 750 MG PO DAILY Prescribed by: BRADY BROWN on 05/22/182035 Lorazepam 0.5 Mg Tablet, 0.5 MG PO TID PRN for ANXIETY Prescribed by: NANNETTE REVELES on 05/01/18 1041 Magnesium Oxide 400 Mg Tablet, 400 MG PO BIDPC Prescribed by: YASMANI HAMILTON on 05/01/18 0906 Melatonin 3 Mg Tablet, 6 MG PO HS Prescribed by: NANNETTE REVELES on 05/01/18 1041 Metformin HCl 500 Mg Tab.er.24h, 1,000 MG PO BID TAKE 2 (500MG) TABS Prescribed by: NANNETTE REVELES on 05/01/18 1041 Metoprolol Tartrate 100 Mg Tablet, 100 MG PO BID, (Reported) Miconazole Nitrate 90 Gm Powder, 0 GM TOP BID to groin twice a day for 2 weeks Prescribed by: NANNETTE REVELES on 05/13/18 1709 Omeprazole 40 Mg Capsule.dr, 40 MG PO BID, (Reported) Pramipexole Di-HCl 1 Mg Tablet, 1 MG PO 1700, (Reported) Sennosides 8.6 Mg Tablet, 8.6 MG PO BID Prescribed by: NANNETTE REVELES on 05/01/18 1041 Past Oyqhbjf-Doxwty-Bebdeb Hx Patient Social History Alcohol Use: Denies Use Recreational Drug Use: No Smoking Status: Never a Smoker 2nd Hand Smoke Exposure: Yes Recent Foreign Travel: No Contact w/Someone Who Travel: No Recent Infectious Disease Expo: No Recent Hopitalizations: Yes Immunizations Up To Date Tetanus Booster (TDap): Unknown PED Vaccines UTD: No Date of Pneumonia Vaccine: Dec 02, 2017 Date of Influenza Vaccine: Jan 24, 2018 Seasonal Allergies Seasonal Allergies: Yes Past Medical History Surgeries: Yes (LAP NISSIEN) Abdominal, Appendectomy, Cardiac, Defibrillator, Eye Surgery, Gallbladder, Hysterectomy, Oophorectomy, Orthopedic, Pacemaker, Tonsillectomy Respiratory: Yes (History of respiratory failure and intubation) Asthma, Pneumonia, Chronic Bronchitis, COPD Currently Using CPAP: No Currently Using BIPAP: No Cardiac: Yes (SUDDEN CARDIAC ARREST IN 2010 WHEN GETTING PREPPED FOR SURGERY, ) High Cholesterol, Irregular Heartbeat Neurological: Yes (PERIPHERAL NEUROPATHY--HANDS AND FEET) Headaches /Migraines, Neuropathy 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 Disorders: No Female 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 Disorders: 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 Sexually Transmitted Disease: No Genitourinary: Yes Kidney Infection, Bladder Infection, Kidney Stones, UTI-Chronic Gastrointestinal: Yes (S/P CORNELIUS FUNDOPLICATION; ESOPHAGEAL STRICTURES/ DILATIONS; DYSPHAGIA) Gastroesophageal Reflux, Diverticulosis, Hemorrhoids, Polyps, C-Diff, Hiatal Hernia, Ulcer, Irritable Bowel Musculoskeletal: Yes Degenerate Disk Disease, Arthritis, Fibromyalgia, Chronic Back Pain, Fractures Endocrine: Yes Diabetes, Insulin dep, Diabetes, Non-Insulin dep HEENT: Yes Cataract Loss of Vision: Denies Hearing Impairment: Denies Cancer: No Psychosocial: Yes Anxiety, Depression Integumentary: Yes Pruritis Blood Disorders: No Adverse Reaction/Blood Tranf: No Family Medical History Alzheimer's disease 19 FATHER Cardiovascular disease 19 FATHER 19 MOTHER Completed stroke 19 MOTHER Hypertension 19 FATHER 19 MOTHER Myocardial infarction 19 FATHER 19 MOTHER No Family History of: Diabetes mellitus Physical Exam Vital Signs - First Documented 05/26/18 18:07 Temp 97.9 Pulse 80 Resp 18 B/P (MAP) 140/76 (97) Pulse Ox 96 O2 Delivery Nasal Cannula O2 Flow Rate 2.00 Capillary Refill : Less Than 3 Seconds Height: 5'5.00" Weight: 208lbs. 0oz. 94.035592wp; 36.6 BMI Method:Stated Procedures/Interventions Date of ETT Placement: Apr 21, 2018 Time of ETT Placement: 1743 Progress/Results/Core Measures Suspected Sepsis Recent Fever Within 48 Hours: Yes Infection Criteria Present: Documented Infection New/Unexplained Altered Menta: No Sepsis Screen: No Definite Risk SIRS Temperature:97.9 Pulse: 80 Respiratory Rate: 18 Blood Pressure 140 /76 Mean: 97 Results/Orders Lab Results Laboratory Tests Test 05/26/18 18:50 Range/Units Urine Color YELLOW Urine Clarity SLIGHTLY CLOUDY Urine pH 5 5-9 Urine Specific Gorman 1.030 H 1.016-1.022 Urine Protein 2+ H NEGATIVE Urine Glucose (UA) NEGATIVE NEGATIVE Urine Ketones 1+ H NEGATIVE Urine Nitrite NEGATIVE NEGATIVE Urine Bilirubin NEGATIVE NEGATIVE Urine Urobilinogen NORMAL NORMAL MG/DL Urine Leukocyte Esterase 2+ H NEGATIVE Urine RBC (Auto) 1+ H NEGATIVE Urine RBC NONE /HPF Urine WBC 0-2 /HPF Urine Squamous Epithelial Cells 5-10 /HPF Urine Crystals PRESENT H /LPF Urine Calcium Oxalate Crystals MODERATE H /LPF Urine Bacteria NEGATIVE /HPF Urine Casts NONE /LPF Urine Mucus NEGATIVE /LPF Urine Culture Indicated NO My Orders Orders - BRADY HOFFMAN MD Ua Culture If Indicated (05/26/18 18:41) Chest Pa/Lat (2 View) (05/26/18 18:41) Vital Signs/I&O 05/26/18 18:07 Temp 97.9 Pulse 80 Resp 18 B/P (MAP) 140/76 (97) Pulse Ox 96 O2 Delivery Nasal Cannula O2 Flow Rate 2.00 Capillary Refill : Less Than 3 Seconds Blood Pressure Mean: 97 Departure Impression Primary Impression: Cough Additional Impressions: COPD (chronic obstructive pulmonary disease) Qualified Codes: J44.9 - Chronic obstructive pulmonary disease, unspecified Lower back pain Qualified Codes: M54.5 - Low back pain Decreased oral intake Disposition: HOME, SELF-CARE Condition: Stable Departure-Patient Inst. Decision time for Depature: 21:06 Referrals: NANNETTE REVELES DO (PCP/Family) Primary Care Physician Patient Instructions: COPD Including Emphysema (DC) Add. Discharge Instructions: Increase your fluid intake. Your urine should be light yellow to clear in color if you are hydrated well enough. Follow-up with Dr. Saleem as soon as possible. Continue your usual home medications and breathing treatments. Return to care if you have worsening symptoms. All discharge instructions reviewed with patient and/or family. Voiced understanding. Copy Copies To 1: THERESA SALEEM DO Copies To 2: NANNETTE REVELES JOSHUA T MD May 26, 2018 21:09
[2018-05-26 21:15] VITALS: BP 140/76
== END 2018-05-26 21:20 | disposition home or self-care (01) ==
LOC: EDUNIT# 17:56 → ER 17:58
DX: J44.9 Chronic obstructive pulmonary disease, unspecified (principal); M54.5 Low back pain; R63.0 Anorexia; E78.00 Pure hypercholesterolemia, unspecified; I25.2 Old myocardial infarction; G43.909 Migraine, unspecified, not intractable, without status migrainosus; K21.9 Gastro-esophageal reflux disease without esophagitis; K58.9 Irritable bowel syndrome, unspecified; E11.40 Type 2 diabetes mellitus with diabetic neuropathy, unspecified; F41.9 Anxiety disorder, unspecified; F32.9 Major depressive disorder, single episode, unspecified; Z87.19 Personal history of other diseases of the digestive system; Z87.442 Personal history of urinary calculi; Z82.49 Family history of ischemic heart disease and other diseases of the circulatory system; Z87.440 Personal history of urinary (tract) infections; Z88.5 Allergy status to narcotic agent; Z88.0 Allergy status to penicillin; Z88.2 Allergy status to sulfonamides; Z88.8 Allergy status to other drugs, medicaments and biological substances; Z88.6 Allergy status to analgesic agent; Z79.01 Long term (current) use of anticoagulants; Z79.4 Long term (current) use of insulin; Z87.01 Personal history of pneumonia (recurrent); Z77.22 Contact with and (suspected) exposure to environmental tobacco smoke (acute) (chronic); Z90.49 Acquired absence of other specified parts of digestive tract; Z98.890 Other specified postprocedural states; Z95.810 Presence of automatic (implantable) cardiac defibrillator; Z90.710 Acquired absence of both cervix and uterus; Z95.0 Presence of cardiac pacemaker; Z90.89 Acquired absence of other organs
CPT/HCPCS: 71046; 81000

== ENCOUNTER → 2018-05-29 | Outpatient (CLI) | payer MEDICARE | LOC: LAB 10:47 | PROVIDERS: ATTEND Nurse Practitioner Family | DX: J18.8 Other pneumonia, unspecified organism (principal); R09.02 Hypoxemia; R06.02 Shortness of breath; G89.4 Chronic pain syndrome; J30.9 Allergic rhinitis, unspecified; G47.50 Parasomnia, unspecified; G47.33 Obstructive sleep apnea (adult) (pediatric); J43.8 Other emphysema; R94.2 Abnormal results of pulmonary function studies; J98.4 Other disorders of lung | CPT/HCPCS: 36415; 82784; 82785 ==

== ENCOUNTER → 2018-06-09 | Outpatient (CLI) | payer MEDICARE ==
[2018-06-09 16:19] LABS: BASOPHILS % (AUTO) 0 % (0-10); EOSINOPHILS # (AUTO) 0.1 10^3/uL (0.0-0.3); EOSINOPHILS % (AUTO) 1 % (0-10); HEMATOCRIT 38 % (35-52); HEMOGLOBIN 12.3 G/DL (11.5-16.0); LYMPHOCYTES # (AUTO) 1.5 X 10^3 (1.0-4.0); LYMPHOCYTES % (AUTO) 17 % (12-44); MEAN CORPUSCULAR HEMOGLOBIN 30 PG (25-34); MEAN CORPUSCULAR HGB CONC 33 G/DL (32-36); MEAN CORPUSCULAR VOLUME 91 FL (80-99); MEAN PLATELET VOLUME 9.7 FL (7.4-10.4); MONOCYTES # (AUTO) 0.4 X 10^3 (0.0-1.0); MONOCYTES % (AUTO) 5 % (0-12); NEUTROPHILS # (AUTO) 6.9 X 10^3 (1.8-7.8); NEUTROPHILS % (AUTO) 77 % (42-75); PLATELET COUNT 230 10^3/uL (130-400); RED CELL DISTRIBUTION WIDTH 13.8 % (10.0-14.5); WHITE BLOOD COUNT 9.1 10^3/uL (4.3-11.0)
[2018-06-09 16:59] LABS: FREE T4 (FREE THYROXINE) 1.12 NG/DL (0.70-1.48)
== END ==
LOC: LAB 15:34
PROVIDERS: ATTEND Family Medicine
DX: R50.9 Fever, unspecified (principal); R61 Generalized hyperhidrosis; R49.0 Dysphonia; R00.0 Tachycardia, unspecified; Z86.19 Personal history of other infectious and parasitic diseases
CPT/HCPCS: 36415; 84439; 84443; 84480; 85025; 86141; 87040; 87070; 87088

== ENCOUNTER 2018-06-12 15:33 | Emergency (ER) | payer MEDICARE ==
[~2018-06-12] VITALS: Ht 165.1 cm; Wt 94.3 kg
[2018-06-12 16:14] LABS: BASOPHILS % (AUTO) 0 % (0-10); EOSINOPHILS # (AUTO) 0.1 10^3/uL (0.0-0.3); EOSINOPHILS % (AUTO) 1 % (0-10); HEMATOCRIT 41 % (35-52); HEMOGLOBIN 13.4 G/DL (11.5-16.0); LYMPHOCYTES # (AUTO) 1.6 X 10^3 (1.0-4.0); LYMPHOCYTES % (AUTO) 15 % (12-44); MEAN CORPUSCULAR HEMOGLOBIN 30 PG (25-34); MEAN CORPUSCULAR HGB CONC 33 G/DL (32-36); MEAN CORPUSCULAR VOLUME 91 FL (80-99); MEAN PLATELET VOLUME 9.8 FL (7.4-10.4); MONOCYTES # (AUTO) 0.5 X 10^3 (0.0-1.0); MONOCYTES % (AUTO) 5 % (0-12); NEUTROPHILS # (AUTO) 8.4 X 10^3 (1.8-7.8); NEUTROPHILS % (AUTO) 79 % (42-75); PLATELET COUNT 273 10^3/uL (130-400); WHITE BLOOD COUNT 10.6 10^3/uL (4.3-11.0)
[2018-06-12 16:27] LABS: ALANINE AMINOTRANSFERASE 57 U/L (0-55); ALKALINE PHOSPHATASE 114 U/L (40-136); BILIRUBIN,TOTAL 0.4 MG/DL (0.1-1.0); BUN/CREATININE RATIO 13; CALCIUM 9.9 MG/DL (8.5-10.1); CARBON DIOXIDE 21 MMOL/L (21-32); CHLORIDE 101 MMOL/L (98-107); CREATININE SERUM 0.86 MG/DL (0.60-1.30); GFR ESTIMATED > 60; GLUCOSE 270 MG/DL (70-105); POTASSIUM 3.7 MMOL/L (3.6-5.0); SODIUM 136 MMOL/L (135-145); TOTAL PROTEIN 7.2 GM/DL (6.4-8.2)
--- NOTE | 2018-06-12 16:34 | Diagnostic Imaging Report ---
INDICATION: Hypertension. COMPARISON: 05/26/2018. EXAMINATION: Single view of the chest was obtained. FINDINGS: There is cardiomegaly. Pacemaker overlies the left hemithorax. There is no pleural effusion, pneumothorax or pneumonia. The mediastinum is unremarkable. IMPRESSION: 1. No acute cardiopulmonary . 2. Cardiomegaly and some ectasia of the thoracic aorta. Dictated by: Dictated on workstation # [id number]
--- NOTE | 2018-06-12 16:42 | ED Chest Pain ---
General Chief Complaint: Cardiac/General Problems Stated Complaint: HYPERTENSION Nursing Triage Note: PT BROUGHT IN BY EMS FROM HOME WITH COMPLAINT OF HEART RACING AND FLUCTUATING BLOOD PRESSURES. PT STATES HER HR WAS IN THE 150S AT HOME AND BLOOD PRESSURE WAS IN THE 200S SYSTOLIC AND THEN TO 80S SYSTOLIC. PT STATES SHE RECENTLY HAD A LOT OF TESTS DONE BY DR LANGE. Nursing Sepsis Screen: No Definite Risk Source: patient, EMS Exam Limitations: no limitations (STEFANO DOWNEY MD) History of Present Illness Date Seen by Provider: Jun 12, 2018 Time Seen by Provider: 16:00 Initial Comments This 72-year-old white female presents with a complaint of palpitations and fluctuating blood pressure. The patient has been under significant stress today with a impending of her brother. The patient denies associated fever or chill, headache, stiff neck, or photophobia, productive cough, persistent chest pain, nausea or vomiting, or change in her medications. She is under the care of Dr. Reid. (STEFANO DOWNEY MD) Allergies and Home Medications Allergies Coded Allergies: oxycodone (Verified Allergy, Mild, 05/04/18) HALLUCINATIONS Penicillins (Unverified Allergy, Unknown, Pt has received Cefepime & Ceftriaxone in the past w/o issue, 01/18/17) Sulfa (Sulfonamide Antibiotics) (Verified Allergy, Unknown, 06/08/16) aspirin (Verified Adverse Reaction, Mild, ASPIRIN SENSITIVE, 06/08/16) sumatriptan (Verified Adverse Reaction, Mild, PALPITATIONS, 06/08/16) Home Medications Acetaminophen 650 Mg Tablet.er, 650 MG PO Q4H Prescribed by: NANNETTE REID on 05/01/18 1042 Apixaban 5 Mg Tablet, 5 MG PO Q12H Prescribed by: YASMANI HAMILTON on 05/01/18 0906 Buspirone HCl 5 Mg Tablet, 5 MG PO TID, (Reported) Diltiazem HCl 240 Mg Cap.er.24h, 240 MG PO DAILY Prescribed by: YASMANI HAMILTON on 05/01/18 0906 Doxepin HCl 10 Mg Capsule, 20 MG PO HS Prescribed by: NANNETTE REID on 05/13/18 1711 Hydrocodone Bit/Acetaminophen 1 Tab Tab, 1 TAB PO Q4H PRN for PAIN-MODERATE Prescribed by: NANNETTE REID on 05/01/18 1041 Insulin Determir 1,000 Units/10 Ml Soln, 50 UNIT SQ DAILY Prescribed by: NANNETTE REID on 05/01/18 1041 Ipratropium/Albuterol Sulfate 3 Ml Ampul.neb, 3 ML NEB Q6H PRN for SHORTNESS OF BREATH, (Reported) Levofloxacin 750 Mg Tablet, 750 MG PO DAILY Prescribed by: BRADY BROWN on 05/22/182035 Lorazepam 0.5 Mg Tablet, 0.5 MG PO TID PRN for ANXIETY Prescribed by: NANNETTE REID on 05/01/18 104 Magnesium Oxide 400 Mg Tablet, 400 MG PO BIDPC Prescribed by: YASMANI HAMILTON on 05/01/18 0906 Melatonin 3 Mg Tablet, 6 MG PO HS Prescribed by: NANNETTE REID on 05/01/18 104 Metformin HCl 500 Mg Tab.er.24h, 1,000 MG PO BID TAKE 2 (500MG) TABS Prescribed by: NANNETTE REID on 05/01/18 1041 Metoprolol Tartrate 100 Mg Tablet, 100 MG PO BID, (Reported) Miconazole Nitrate 90 Gm Powder, 0 GM TOP BID to groin twice a day for 2 weeks Prescribed by: NANNETTE REID on 05/13/18 170 Omeprazole 40 Mg Capsule.dr, 40 MG PO BID, (Reported) Pramipexole Di-HCl 1 Mg Tablet, 1 MG PO 1700, (Reported) Sennosides 8.6 Mg Tablet, 8.6 MG PO BID Prescribed by: NANNETTE REID on 05/01/18 1041 Patient Home Medication List Home Medication List Reviewed: Yes (STEFANO DOWNEY MD) Review of Systems Review of Systems Constitutional: No chills, No fever EENTM: No Blurred Vision Respiratory: Denies Cough Cardiovascular: Chest Pain, Palpitations; Denies Syncope Gastrointestinal: Denies Abdominal Pain, Denies Diarrhea, Denies Rectal Bleeding Genitourinary: Denies Burning, Denies Frequency Musculoskeletal: No back pain Skin: No change in color Psychiatric/Neurological: See HPI, Anxiety, Depressed Endocrine: Denies Excessive Sweating Hematologic/Lymphatic: Denies Anemia (STEFANO DOWNEY MD) Past Jmrrvxm-Meppqs-Bppszn Hx Past Med/Social Hx: Reviewed Nursing Past Med/Soc Hx (STEFANO DOWNEY MD) Patient Social History Alcohol Use: Denies Use Recreational Drug Use: No Smoking Status: Never a Smoker 2nd Hand Smoke Exposure: Yes Recent Foreign Travel: No Contact w/Someone Who Travel: No Recent Infectious Disease Expo: No Recent Hopitalizations: Yes (STEFANO DOWNEY MD) Immunizations Up To Date Tetanus Booster (TDap): Unknown PED Vaccines UTD: No Date of Pneumonia Vaccine: Dec 02, 2017 Date of Influenza Vaccine: Jan 24, 2018 (STEFANO DOWNEY MD) Seasonal Allergies Seasonal Allergies: Yes (STEFANO DOWNEY MD) Past Medical History Surgeries: Yes (BRANDIN NISSIEN) Abdominal, Appendectomy, Cardiac, Defibrillator, Eye Surgery, Gallbladder, Hysterectomy, Oophorectomy, Orthopedic, Pacemaker, Tonsillectomy Respiratory: Yes (History of respiratory failure and intubation) Asthma, Pneumonia, Chronic Bronchitis, COPD Currently Using CPAP: No Currently Using BIPAP: No Cardiac: Yes (SUDDEN CARDIAC ARREST IN 2010 WHEN GETTING PREPPED FOR SURGERY, ) High Cholesterol, Irregular Heartbeat Neurological: Yes (PERIPHERAL NEUROPATHY--HANDS AND FEET) Headaches /Migraines, Neuropathy 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 Disorders: No Female 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 Disorders: 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 Sexually Transmitted Disease: No Genitourinary: Yes Kidney Infection, Bladder Infection, Kidney Stones, UTI-Chronic Gastrointestinal: Yes (S/P CORNELIUS FUNDOPLICATION; ESOPHAGEAL STRICTURES/ DILATIONS; DYSPHAGIA) Gastroesophageal Reflux, Diverticulosis, Hemorrhoids, Polyps, C-Diff, Hiatal Hernia, Ulcer, Irritable Bowel Musculoskeletal: Yes Degenerate Disk Disease, Arthritis, Fibromyalgia, Chronic Back Pain, Fractures Endocrine: Yes Diabetes, Insulin dep, Diabetes, Non-Insulin dep HEENT: Yes Cataract Loss of Vision: Denies Hearing Impairment: Denies Cancer: No Psychosocial: Yes Anxiety, Depression Integumentary: Yes Pruritis Blood Disorders: No Adverse Reaction/Blood Tranf: No (STEFANO DOWNEY MD) Family Medical History Alzheimer's disease 19 FATHER Cardiovascular disease 19 FATHER 19 MOTHER Completed stroke 19 MOTHER Hypertension 19 FATHER 19 MOTHER Myocardial infarction 19 FATHER 19 MOTHER No Family History of: Diabetes mellitus Physical Exam Vital Signs Vital Signs - First Documented 06/12/18 15:33 Pulse 108 Resp 20 B/P (MAP) 129/82 (98) Pulse Ox 95 O2 Delivery 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 0oz. 94.390062nd; 36.6 BMI Method:Stated General Appearance: Anxious, Mild Distress HEENT: Normal ENT Inspection Neck: Normal Inspection Respiratory: Lungs Clear Cardiovascular: Regular Rate, Rhythm Gastrointestinal: Normal Bowel Sounds Extremity: Normal Inspection, Normal Range of Motion Neurologic/Psychiatric: Oriented x3, No Motor/Sensory Deficits, Normal Mood/ Affect Skin: Normal Color (STEFANO DOWNEY MD) Procedures/Interventions Date of ETT Placement: Apr 21, 2018 Time of ETT Placement: 174 (STEFANO DOWNEY MD) Progress/Results/Core Measures Results/Orders Lab Results Laboratory Tests Test 06/12/18 15:34 Range/Units White Blood Count 10.6 4.3-11.0 10^3/uL Red Blood Count 4.51 4.35-5.85 10^6/uL Hemoglobin 13.4 11.5-16.0 G/DL Hematocrit 41 35-52 % Mean Corpuscular Volume 91 80-99 FL Mean Corpuscular Hemoglobin 30 25-34 PG Mean Corpuscular Hemoglobin Concent 33 32-36 G/DL Red Cell Distribution Width 14.0 10.0-14.5 % Platelet Count 273 130-400 10^3/uL Mean Platelet Volume 9.8 7.4-10.4 FL Neutrophils (%) (Auto) 79 H 42-75 % Lymphocytes (%) (Auto) 15 12-44 % Monocytes (%) (Auto) 5 0-12 % Eosinophils (%) (Auto) 1 0-10 % Basophils (%) (Auto) 0 0-10 % Neutrophils # (Auto) 8.4 H 1.8-7.8 X 10^3 Lymphocytes # (Auto) 1.6 1.0-4.0 X 10^3 Monocytes # (Auto) 0.5 0.0-1.0 X 10^3 Eosinophils # (Auto) 0.1 0.0-0.3 10^3/uL Basophils # (Auto) 0.0 0.0-0.1 10^3/uL Sodium Level 136 135-145 MMOL/L Potassium Level 3.7 3.6-5.0 MMOL/L Chloride Level 101 98-107 MMOL/L Carbon Dioxide Level 21 21-32 MMOL/L Anion Gap 14 5-14 MMOL/L Blood Urea Nitrogen 11 7-18 MG/DL Creatinine 0.86 0.60-1.30 MG/DL Estimat Glomerular Filtration Rate > 60 BUN/Creatinine Ratio 13 Glucose Level 270 H 70-105 MG/DL Calcium Level 9.9 8.5-10.1 MG/DL Corrected Calcium 9.9 8.5-10.1 MG/DL Total Bilirubin 0.4 0.1-1.0 MG/DL Aspartate Amino Transf (AST/SGOT) 55 H 5-34 U/L Alanine Aminotransferase (ALT/SGPT) 57 H 0-55 U/L Alkaline Phosphatase 114 40-136 U/L Troponin I < 0.028 <0.028 NG/ML Total Protein 7.2 6.4-8.2 GM/DL Albumin 4.0 3.2-4.5 GM/DL (EARNESTINE CAMARGO APRN) Medications Given in ED Current Medications Medications Dose Ordered Sig/Alannah Route Start Time Stop Time Status Last Admin Dose Admin Lorazepam 2 mg ONCE ONCE IVP 06/12/18 17:00 06/12/18 17:01 DC 06/12/18 16:58 2 MG Metoprolol Tartrate 5 mg ONCE ONCE IV 06/12/18 18:00 06/12/18 18:01 DC 06/12/18 18:03 5 MG (EARNESTINE CAMARGO APRN) Vital Signs/I&O 06/12/18 15:33 Pulse 108 Resp 20 B/P (MAP) 129/82 (98) Pulse Ox 95 O2 Delivery Room Air (EARNESTINE CAMARGO APRN) Blood Pressure Mean: 98 Progress Progress Note : Time: 17:50 Progress Note I discussed patient's labile blood pressure and persistent tachycardia with Dr. Reid. She felt that this may be due to switching from her beta kriss tachycardias with this past week. Dr. Reid also had noted some increase in the patient's peripheral edema. The patient's resting tachycardia and labile blood pressure were both improved with 2 mg of Ativan IV. Patient received 5 mg of metoprolol IV. At Dr. Reid's request I placed a call to . (STEFANO DOWNEY MD) Departure Impression Primary Impression: Sinus tachycardia Disposition: 01 HOME, SELF-CARE Condition: Stable Departure-Patient Inst. Decision time for Depature: 18:11 (EARNESTINE CAMARGO APRN) Referrals: NANNETTE REID DO (PCP/Family) Primary Care Physician Patient Instructions: Tachycardia Add. Discharge Instructions: Resume your metoprolol at current dose. Follow-up with Dr. Reid. All discharge instructions reviewed with patient and/or family. Voiced understanding. STEFANO DOWNEY MD Jun 12, 2018 16:42 EARNESTINE CAMARGO APRN Jun 12, 2018 18:12
--- NOTE | 2018-06-12 16:45 | Diagnostic Imaging Report ---
CLINICAL INDICATION: Patient with blood pressure and heart rate changing from really high to really low. EXAM: Axial CT scan of the brain performed without IV contrast. COMPARISON: Head CT without contrast dated 12/12/2017. FINDINGS: Motion artifact obscures some portions of this exam. There is no evidence of acute cerebral infarct, intracranial hemorrhage, or gross mass effect. There is stable brain parenchymal volume loss with the frontal lobes affected the most. There are subtle focal areas of low-attenuation white matter changes involving both cerebral hemispheres, likely representing chronic small vessel ischemic disease. There is normal joseph-white matter distinction. There is no significant midline shift or herniation. There is no evidence of hydrocephalus. The basal cisterns are unremarkable. The skull, extracranial soft tissue, and orbits are unremarkable. There is a new small air-fluid level in the sphenoid sinus. Mucosal thickening was previously seen on the prior study. Temporal bones show no significant abnormality. IMPRESSION: 1: There is no CT evidence of acute intracranial process. There is no intracranial hemorrhage. 2: Stable age-related brain parenchymal changes, as described above. 3: Interval progression of mild sphenoid sinusitis. Dictated by: Dictated on workstation # [id number]
[2018-06-12] MEDS ORDERED: LORazepam INJ 2 MG/ML (ATIVAN) VIAL IVP ONE (17:00)
--- OUTSIDE RECORDS SUMMARY | 2018-06-12 17:32 | XMS REPORT | Encounter Summary ---
Author Author [facility] Organization [facility] Address Unknown Phone Unavailable Care Team Providers Care Spring Setter Name Role Phone Belia Reid MD PCP Reason for Visit * Reason Comments Diabetes Encounter Details Care Team Description Date Type Department Nathan Crenshaw MD [address] [facility] [address] [place] [address] [phone] Uncontrolled type 2 diabetes mellitus with hyperglycemia ( HCC) (Primary Dx); Dyslipidemia; Diabetic polyneuropathy associated with type 2 diabetes mellitus (HCC) 03/20/2018 Office Visit [facility] [address] [address] Social History Date Tobacco Use [...] Taken Vital Sign Reading 03/20/2018 12:54 PM TEAM ASSISTANT Blood Pressure 145/71 03/20/2018 12:54 PM TEAM ASSISTANT Pulse 64 - Temperature - - Respiratory Rate - - Oxygen Saturation - - Inhaled Oxygen - Concentration 03/20/2018 12:54 PM TEAM ASSISTANT Weight 97.9 kg (215 lb 14.4 oz) 03/20/2018 12:54 PM TEAM ASSISTANT Height 164.6 cm (5' 4.8") 03/20/2018 12:54 PM TEAM ASSISTANT Body Mass Index 36.15 documented in this encounter Patient Instructions * Patient Instructions* Nathan Crenshaw MD - 03/20/2018 1:00 PM TEAM ASSISTANT 1. The hemoglobin A1c is 9.6, [...] to see you again in 3 months. ASSISTANT documented in this encounter Progress Notes * Nathan Crenshaw MD - 03/20/2018 1:00 PM TEAM ASSISTANT Date of Service: 03/20/2018 Subjective: Diana Gregory is a 72 y.o. female. History of Present IllnessI am seeing Mrs. Gregory for the first time; she was previously seen at [facility] by Calvin Tripp. She takes metformin [...] in the past. She has a pacemaker/defibrillator. (DOC:[id number]) Review of Systems Constitutional: Positive for fatigue [...] will see her again in 3 months. (DOC:[id number]) ASSISTANT * Nathan Crenshaw MD - 03/20/2018 1:00 PM TEAM ASSISTANT Date of Service: 03/20/2018 Entered in error ASSISTANT documented in this encounter Plan of Treatment Not on filedocumented as of this encounter Goals Goal Patient Associated Recent Progress Patient-Stat Author Goal Type Problems ed? HEMOGLOBIN A1C < 7.5 Result 9.9 (04/01/2017 No Josee, Component 10:37 AM TEAM ASSISTANT) NAHEED Simpson documented as of this encounter Visit Diagnoses Diagnosis Uncontrolled type 2 diabetes mellitus with hyperglycemia (HCC) - Primary Dyslipidemia Other and unspecified hyperlipidemia Diabetic polyneuropathy associated with type 2 diabetes mellitus (HCC) documented in this encounter
--- OUTSIDE RECORDS SUMMARY | 2018-06-12 17:32 | XMS REPORT | Encounter Summary ---
Author Author [facility] Organization [facility] Address Unknown Phone Unavailable Care Team Providers Care Animal Health Technician Name Role Phone Belia Reid MD PCP Reason for Visit * Reason Comments Medication Question Neurontin Encounter Details Care Team Description Date Type Department Nathan Crenshaw MD [address] [facility] [address] [place] [address] [phone] Medication Question (Neurontin) 03/27/2018 Telephone [facility] [address] [place] [address] Social History Date Tobacco Use Types Packs/Day [...] Babita Conteh LPN - 04/01/2018 12:28 PM [employer] Called [employer] and advised Patient has no allergy to Gabapentin She has been on it for several months without issue They removed allergy from record and will ship it today, Patient notified [facility] [employer] * Telephone Encounter - Nathan Crenshaw MD - 03/31/2018 8:49 AM [employer] I reviewed my note, which says that she was already on gabapentin, and that I just adjusted the dose. Could you confirm this with her? If she was already taking the medication they should go ahead and fill the script for the same medication, generic gabapentin. [facility] [employer] * Telephone Encounter - Hanna Kelly RN - 03/27/2018 11:01 AM [employer] Received fax from [facility] [employer] Patient reports Neurotin Cap 100 mg allergy and there is potential for cross sensitivity . They are wanting confirmation it is okay to fill this med. [employer] documented in this encounter Plan of Treatment Not on filedocumented as of this encounter Goals Goal Patient Associated Recent Progress Patient-Stat Author Goal Type Problems ed? HEMOGLOBIN A1C < 7.5 Result 9.9 (04/01/2017 No Josee, Component 10:37 AM [employer]) NAHEED Simpson documented as of this encounter Visit Diagnoses Not on filedocumented in this encounter
--- OUTSIDE RECORDS SUMMARY | 2018-06-12 17:32 | XMS REPORT | Encounter Summary ---
Author Author [facility] Organization [facility] Address Unknown Phone Unavailable Care Team Providers Care Photo Stylist Name Role Phone Belia Reid MD PCP Reason for Visit * Reason Comments Paperwork Mobile Med Care/Respiratory/Sleep Therapy Orders Encounter Details Care Team Description Date Type Department Nathan Crenshaw MD [address] Ortho/Med Pavilion [address]vl [address] [place], [place] [id number] Paperwork (Mobile Med Care/Respiratory/Sleep Therapy Orders) 03/26/2018 Telephone [facility] [address] [address] Social History Date Tobacco Use [...] Laura Verdin RN - 03/26/2018 8:25 AM PRICING COORDINATOR Orders for Overnight Oximetry completed, signed and faxed to [facility]. Faxed with demographics, insurance information Fax confirmation 03/25/18 @ 1300 PM Form to PRR to scan to chart Closing encounter ING COORDINATOR documented in this encounter Plan of Treatment Not on filedocumented as of this encounter Goals Goal Patient Associated Recent Progress Patient-Stat Author Goal Type Problems ed? HEMOGLOBIN A1C < 7.5 Result 9.9 (04/01/2017 No Josee, Edilberto 10:37 AM PRICING COORDINATOR) NAHEED Simpson documented as of this encounter Visit Diagnoses Not on filedocumented in this encounter
--- OUTSIDE RECORDS SUMMARY | 2018-06-12 17:32 | XMS REPORT | Encounter Summary ---
Author Author [facility] Organization [facility] Address Unknown Phone Unavailable Care Team Providers Care Line Closer Name Role Phone Belia Reid MD PCP Reason for Visit * Reason Comments Medication Refill Encounter Details Care Team Description Date Type Department Nathan Crenshaw MD [address] [facility] Ortho/Med Pavilion [address] [place] [phone] 03/26/2018 Refill [facility] [address] [place] [phone] Social History Date Tobacco Use Types Packs/Day [...] 9.9 (04/01/2017 No Josee, Component 10:37 AM BYPRODUCTS EXTRACTOR) NAHEED Simpson documented as of this encounter Visit Diagnoses Not on filedocumented in this encounter
--- OUTSIDE RECORDS SUMMARY | 2018-06-12 17:32 | XMS REPORT | Encounter Summary ---
Author Author [facility] Organization [facility] Address Unknown Phone Unavailable Care Team Providers Care Histotechnician Name Role Phone Belia Reid MD PCP Reason for Visit * Reason Comments Medication Refill Encounter Details Care Team Description Date Type Department Calvin Tripp APRN [address] [facility] Ortho/Med Pavilion Lvl [address] [place] [address] [phone] Type 2 diabetes mellitus with hyperglycemia, without long- term current use of insulin (HCC) (Primary Dx) 03/18/2018 Refill [facility] [address] [place] [address] Social History Date Tobacco Use Types Packs/Day [...] 9.9 (04/01/2017 No Josee, Component 10:37 AM ALTO SINGER) NAHEED Simpson documented as of this encounter Visit Diagnoses Diagnosis Type 2 diabetes mellitus with hyperglycemia, without long-term current use of insulin (HCC) - Primary documented in this encounter
--- OUTSIDE RECORDS SUMMARY | 2018-06-12 17:32 | XMS REPORT | Encounter Summary ---
Author Author [facility] Organization [facility] Address Unknown Phone Unavailable Care Team Providers Care Washcoat Wiper Name Role Phone Belia Reid MD PCP Reason for Visit * Reason Comments Medication Refill Encounter Details Care Team Description Date Type Department Nathan Crenshaw MD [address] [facility] Ortho/Med Pavilion Lvl [address] [place] [address] [phone] Diabetic polyneuropathy associated with type 2 diabetes mellitus (HCC) 03/25/2018 Refill [facility] [address] [place] [phone] Social History Date Tobacco Use Types Packs/Day [...] 9.9 (04/01/2017 No Josee, Component 10:37 AM SHADE CLOTH FINISHER) NAHEED Simpson documented as of this encounter Visit Diagnoses Diagnosis Diabetic polyneuropathy associated with type 2 diabetes mellitus (HCC) documented in this encounter
--- OUTSIDE RECORDS SUMMARY | 2018-06-12 17:32 | XMS REPORT | Clinical Summary ---
Author Author [facility] Organization [facility] Address Unknown Phone Unavailable Care Team Providers Care Cooperage Shop Supervisor Name Role Phone Belia Reid MD PCP Source Comments Some departments are not documenting in the electronic medical record. If you do not see the information that you expected, contact Release of Information in the Health Information Management department at [phone] for further assistance in locating additional records.[facility] Allergies Comments Active Allergy Reactions Severity [...] recently Kidney stones 08/24/2016 Overview: -- 10/15/16: Religious Education Teacher evaluation non-obstructing stone. CT shows a [...] & Genetics Nathan Crenshaw MD 03/26/2018 Refill Diabetes Services Nathan Crenshaw MD Paperwork (Mobile Med Care/Respiratory/Sleep Therapy Orders) 03/26/2018 Telephone Endocrinology Nathan Crenshaw MD Diabetic polyneuropathy associated with type 2 diabetes mellitus (HCC) 03/25/2018 Refill Diabetes Services Nathan Crenshaw MD High Blood Sugar 03/21/2018 [...] Dx) 03/18/2018 Refill Endocrinology, Metabolism & Genetics from Last [...] Taken Vital Sign Reading 03/20/2018 12:[address] Blood Pressure 145/71 03/20/2018 12:[address] Pulse 64 - Temperature - - Respiratory Rate - - Oxygen Saturation - - Inhaled Oxygen - Concentration 03/20/2018 12:[address] Weight 97.9 kg (215 lb 14.4 oz) 03/20/2018 12:[address] Height 164.6 cm (5' 4.8") 03/20/2018 12:[address] Body Mass Index 36.15 Plan of Treatment [...] 05/13/2018 11/13/2017, 07/12/2017, 04/01/2017, Additional history exists INFLUENZA VACCINE 10/02/2018 11/14/2017 FOOT EXAM 03/20/2019 03/20/2018 Goals Goal Patient Associated Recent Progress Patient-Stat Author Goal Type Problems ed? HEMOGLOBIN A1C < 7.5 Result 9.9 (04/01/2017 No Josee, Component 10:[address]) NAHEED Simpson Results Not on filefrom Last 3 Months Insurance Type Payer Benefit Subscriber ID Effective Phone Address Plan / Dates Group Medicare HUMANA MEDICARE HUMANA xxxxxxxxx 2018-P CHOICE PPO resent Advance Directives Patient has advance care planning documents on file. For more information, please contact: [address] [address]
--- OUTSIDE RECORDS SUMMARY | 2018-06-12 17:32 | XMS REPORT | Encounter Summary ---
Author Author [facility] Organization [facility] Address Unknown Phone Unavailable Care Team Providers Care Security Manager Name Role Phone Belia Reid MD PCP Reason for Visit * Reason Comments High Blood Sugar Encounter Details Care Team Description Date Type Department Nathan Crenshaw MD [address] [facility] Ortho/Med Pavilion Lvl [address] [place] [address] [phone] High Blood Sugar 03/21/2018 Telephone [facility] [address] [place] [address] Social History Date Tobacco Use Types Packs/Day [...] Notes * Telephone Encounter - Geni June, RN - 03/21/2018 4:23 PM WILDLIFE REFUGE MANAGER Patient left a VM stating she [...] will call next week with an update. LIFE REFUGE MANAGER documented in this encounter Plan of Treatment Not on filedocumented as of this encounter Goals Goal Patient Associated Recent Progress Patient-Stat Author Goal Type Problems ed? HEMOGLOBIN A1C < 7.5 Result 9.9 (04/01/2017 No Josee, Component 10:37 AM WILDLIFE REFUGE MANAGER) NAHEED Simpson documented as of this encounter Visit Diagnoses Not on filedocumented in this encounter
[2018-06-12] MEDS ORDERED: meTOprolol 5 MG/5 ML (LOPRESSOR) VIAL IV ONE (18:00)
[2018-06-12] MEDS ORDERED: CALCIUM GLUC. 10% 4.65 MEQ/10 ML VIAL ONE (18:00)
[2018-06-12 18:13] VITALS: BP 130/82
== END 2018-06-12 18:18 | disposition home or self-care (01) ==
LOC: EDUNIT# 15:33 → ER 15:34
DX: R00.0 Tachycardia, unspecified (principal); J44.9 Chronic obstructive pulmonary disease, unspecified; E78.00 Pure hypercholesterolemia, unspecified; G43.909 Migraine, unspecified, not intractable, without status migrainosus; I25.2 Old myocardial infarction; K21.9 Gastro-esophageal reflux disease without esophagitis; K58.9 Irritable bowel syndrome, unspecified; E11.9 Type 2 diabetes mellitus without complications; F41.9 Anxiety disorder, unspecified; F32.9 Major depressive disorder, single episode, unspecified; Z86.010 Personal history of colon polyps; Z87.19 Personal history of other diseases of the digestive system; Z82.49 Family history of ischemic heart disease and other diseases of the circulatory system; Z87.442 Personal history of urinary calculi; Z87.440 Personal history of urinary (tract) infections; Z88.0 Allergy status to penicillin; Z88.5 Allergy status to narcotic agent; Z88.6 Allergy status to analgesic agent; Z88.2 Allergy status to sulfonamides; Z79.01 Long term (current) use of anticoagulants; Z79.4 Long term (current) use of insulin; Z77.22 Contact with and (suspected) exposure to environmental tobacco smoke (acute) (chronic); Z95.810 Presence of automatic (implantable) cardiac defibrillator; Z98.890 Other specified postprocedural states; Z90.49 Acquired absence of other specified parts of digestive tract; Z90.710 Acquired absence of both cervix and uterus; Z87.01 Personal history of pneumonia (recurrent)
CPT/HCPCS: 36415; 70450; 71045; 80053; 84484; 85025; 93005

== ENCOUNTER → 2018-07-14 | Outpatient (CLI) | payer MEDICARE ==
[~2018-07-14] MED LIST changes: +RT-ALBUTEROL SULF 2.5 MG/3 ML PRE-MIX VIAL INH ONE
== END ==
LOC: RT 14:00
PROVIDERS: ATTEND Nurse Practitioner Family
DX: J43.8 Other emphysema (principal); G47.33 Obstructive sleep apnea (adult) (pediatric); R09.02 Hypoxemia; R06.02 Shortness of breath; G89.4 Chronic pain syndrome; J18.8 Other pneumonia, unspecified organism; G47.50 Parasomnia, unspecified; R94.2 Abnormal results of pulmonary function studies; J98.4 Other disorders of lung
CPT/HCPCS: 94060; 94726; 94729

== ENCOUNTER → 2018-07-18 | Outpatient (CLI) | payer MEDICARE ==
[~2018-07-18] MED LIST changes: -RT-ALBUTEROL SULF 2.5 MG/3 ML PRE-MIX VIAL INH ONE
[2018-07-18 11:26] LABS: BUN/CREATININE RATIO 14; GFR ESTIMATED > 60
--- NOTE | 2018-07-18 12:29 | Diagnostic Imaging Report ---
PROCEDURE: CT chest with contrast only. TECHNIQUE: Multiple contiguous axial images were obtained through the chest after administration of intravenous contrast. Auto Exposure Controls were utilized during the CT exam to meet ALARA standards for radiation dose reduction. INDICATION: Shortness of breath and followup. COMPARISON: Correlation is made with prior CT chest from 07/15/2017. FINDINGS: Left chest wall cardiac pacemaker is in place. No axillary lymphadenopathy is seen. No significant hilar or mediastinal lymphadenopathy is detected. There is no pericardial or pleural fluid identified. No pulmonary infiltrates, nodules or masses are seen. There is minimal scarring in the medial aspect of the right lower lobe. The upper abdomen is unremarkable. IMPRESSION: Essentially unremarkable CT of the chest. No thoracic lymphadenopathy or evidence of pulmonary mass is identified. Dictated by: Dictated on workstation # [id number]
== END ==
LOC: RAD 10:50
PROVIDERS: ATTEND Nurse Practitioner Family
DX: J44.9 Chronic obstructive pulmonary disease, unspecified (principal); J30.9 Allergic rhinitis, unspecified; J18.8 Other pneumonia, unspecified organism; J98.4 Other disorders of lung; G47.33 Obstructive sleep apnea (adult) (pediatric); G47.50 Parasomnia, unspecified; G47.34 Idiopathic sleep related nonobstructive alveolar hypoventilation; G89.4 Chronic pain syndrome; Z95.0 Presence of cardiac pacemaker
CPT/HCPCS: 36415; 71260; 82565; 84520

== ENCOUNTER 2018-07-21 15:25 | Emergency (ER) | payer MEDICARE ==
[~2018-07-21] VITALS: Ht 162.6 cm; Wt 97.5 kg
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
--- NOTE | 2018-07-21 15:58 | NUR ---
pt here by self alert gcs 15. says is n the w/r. pt has h/o migaines and relates this c/o as number 1 c/o. pt nunber 2 c/o is abd pain and points to ul q abd. associated with nausea " queezy". denies vomiting and relates diarrhea as " allways". relates h/o ibs. current pain rating 10 with migraine worse. pt denies dyspnea but relates khalil and uses 02 at home. lungs cta bilaterally. abd soft nondistended tender to palpation bilateral upper quads only.
[2018-07-21] MEDS ORDERED: KETOROLAC 30 MG/ML VIAL IM ONE (16:00)
[2018-07-21] MEDS ORDERED: diphenhydrAMINE 50 MG/ML INJ (BENADRYL) IM ONE (16:00)
[2018-07-21] MEDS ORDERED: PROCHLORPERAZINE 10 MG/2ML INJ (COMPAZINE) IM ONE (16:00)
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
--- NOTE | 2018-07-21 16:58 | NUR ---
bp machine is 121/69 ausc hr 72 reg ausc resp 16 normal recheck temp 97.7 p ox r/a is 96.
[2018-07-21 17:08] VITALS: BP 124/68
== END 2018-07-21 17:10 | disposition home or self-care (01) ==
LOC: EDUNIT# 15:25 → ER 15:26
DX: G43.709 Chronic migraine without aura, not intractable, without status migrainosus (principal); J44.9 Chronic obstructive pulmonary disease, unspecified; I25.2 Old myocardial infarction; E78.00 Pure hypercholesterolemia, unspecified; E11.40 Type 2 diabetes mellitus with diabetic neuropathy, unspecified; G43.909 Migraine, unspecified, not intractable, without status migrainosus; K21.9 Gastro-esophageal reflux disease without esophagitis; M79.7 Fibromyalgia; F41.9 Anxiety disorder, unspecified; F32.9 Major depressive disorder, single episode, unspecified; Z86.010 Personal history of colon polyps; Z87.19 Personal history of other diseases of the digestive system; Z87.440 Personal history of urinary (tract) infections; Z82.49 Family history of ischemic heart disease and other diseases of the circulatory system; Z87.442 Personal history of urinary calculi; Z88.0 Allergy status to penicillin; Z88.2 Allergy status to sulfonamides; Z88.6 Allergy status to analgesic agent; Z88.8 Allergy status to other drugs, medicaments and biological substances; Z79.01 Long term (current) use of anticoagulants; Z79.4 Long term (current) use of insulin; Z87.01 Personal history of pneumonia (recurrent); Z77.22 Contact with and (suspected) exposure to environmental tobacco smoke (acute) (chronic); Z90.49 Acquired absence of other specified parts of digestive tract; Z98.890 Other specified postprocedural states; Z95.810 Presence of automatic (implantable) cardiac defibrillator; Z90.710 Acquired absence of both cervix and uterus; Z95.0 Presence of cardiac pacemaker; Z90.89 Acquired absence of other organs
CPT/HCPCS: 99284

== ENCOUNTER 2018-07-31 19:46 | Outpatient (CLI) | payer MEDICARE | END 2018-08-01 06:59 | disposition home or self-care (01) | LOC: SLEEP 19:46 | PROVIDERS: ATTEND Nurse Practitioner Family | DX: G47.33 Obstructive sleep apnea (adult) (pediatric) (principal) | CPT/HCPCS: 95810 ==

== ENCOUNTER 2018-08-07 20:53 | Emergency (ER) | payer MEDICARE ==
[~2018-08-07] VITALS: Ht 162.6 cm; Wt 97.5 kg
--- OUTSIDE RECORDS SUMMARY | 2018-08-07 20:58 | XMS REPORT | Clinical Summary ---
Author Author [facility] Organization [facility] Address Unknown Phone Unavailable Care Team Providers Care Spa Manager/Esthetician Name Role Phone Belia Reid MD PCP Source Comments Some departments are not documenting in the electronic medical record. If you d o not see the information that you expected, contact Release of Information in [facility] [employer] Information Management department at [phone] for further assistan ce in locating additional records.[facility] Allergies Comments Active Allergy Reactions Severity Noted [...] enacarbil 300 Take one 90 tablet 3 03/26/201 mg TbER tablet by 9 mouth at [...] recently Kidney stones 08/24/2016 Overview: -- 10/15/16: Production Consultant evaluation non-obstructing stone. CT shows a 4.6 [...] Plan: Continue Estrace cream 3 x weekly Family History Medical History Relation Name Comments [...] Taken Vital Sign Reading 03/20/2018 12:54 PM LORRY WEIGHER Blood Pressure 145/71 03/20/2018 12:54 PM LORRY WEIGHER Pulse 64 - Temperature - - Respiratory Rate - - Oxygen Saturation - - Inhaled Oxygen - Concentration 03/20/2018 12:54 PM LORRY WEIGHER Weight 97.9 kg (215 lb 14.4 oz) 03/20/2018 12:54 PM LORRY WEIGHER Height 164.6 cm (5' 4.8") 03/20/2018 12:54 PM LORRY WEIGHER Body Mass Index 36.15 Plan of Treatment [...] 07/12/2017, 04/01/2017, Additional history exists INFLUENZA VACCINE 12/02/2018 11/14/2017 FOOT EXAM 03/20/2019 03/20/2018 Goals Goal Patient Associated Recent Progress Patient-Stat Author Goal Type Problems ed? HEMOGLOBIN A1C < 7.5 Result 9.9 (04/01/2017 No Josee, Component 10:37 AM LORRY WEIGHER) NAHEED Simpson Results Not on filefrom Last 3 Months Insurance Type Payer Benefit Subscriber ID Effective Phone Address Plan / Dates Group Medicare HUMANA MEDICARE HUMANA xxxxxxxxx 2018-P CHOICE PPO resent Advance Directives Patient has advance care planning documents on file. For more information, vance nieto contact: [facility] [address] [facility] [place] [address]
[2018-08-07] MEDS ORDERED: PROCHLORPERAZINE 10 MG/2ML INJ (COMPAZINE) IM ONE (21:15)
[2018-08-07] MEDS ORDERED: diphenhydrAMINE 50 MG/ML INJ (BENADRYL) IM ONE (21:15)
[2018-08-07] MEDS ORDERED: KETOROLAC 30 MG/ML VIAL IM ONE (21:15)
--- NOTE | 2018-08-07 21:17 | ED Headache ---
General Stated Complaint: HEADACHE Source: patient Exam Limitations: no limitations History of Present Illness Date Seen by Provider: Aug 07, 2018 Time Seen by Provider: 21:16 Initial Comments To ER Once again with headache and "mental fogginess". No fevers chills or head trauma. This was slowly began and progressively got worse throughout the day today. Mild nausea but no vomiting. Timing/Duration: 24 hours Severity/Quality: moderate, constant Location: global Prior Headaches/Recent Trauma: frequent headaches, chronic headaches Modifying Factors: worse with exposure to light Associated Symptoms: nausea/vomiting Allergies and Home Medications Allergies Coded Allergies: Penicillins (Unverified Allergy, Severe, Pt has received Cefepime & Ceftriaxone in the past w/o issue, 07/21/18) SWELLING, RASH, ITCHING Sulfa (Sulfonamide Antibiotics) (Verified Allergy, Mild, 07/21/18) RASH aspirin (Verified Adverse Reaction, Mild, ASPIRIN SENSITIVE, 07/21/18) UPSET STOMACH sumatriptan (Verified Adverse Reaction, Mild, PALPITATIONS, 07/21/18) IRRITABLE Home Medications Acetaminophen 650 Mg Tablet.er, 650 MG PO Q4H Prescribed by: NANNETTE REID on 05/01/18 1042 Apixaban 5 Mg Tablet, 5 MG PO Q12H Prescribed by: YASMANI HAMILTON on 05/01/18 0906 Buspirone HCl 5 Mg Tablet, 5 MG PO TID, (Reported) Diltiazem HCl 240 Mg Cap.er.24h, 240 MG PO DAILY Prescribed by: YASMANI HAMILTON on 05/01/18 09 Doxepin HCl 10 Mg Capsule, 20 MG PO HS Prescribed by: NANNETTE REID on 05/13/18 1711 Hydrocodone Bit/Acetaminophen 1 Tab Tab, 1 TAB PO Q4H PRN for PAIN-MODERATE Prescribed by: NANNETTE REID on 05/01/18 1041 Insulin Determir 1,000 Units/10 Ml Soln, 50 UNIT SQ DAILY Prescribed by: NANNETTE REID on 05/01/18 1041 Ipratropium/Albuterol Sulfate 3 Ml Ampul.neb, 3 ML NEB Q6H PRN for SHORTNESS OF BREATH, (Reported) Levofloxacin 750 Mg Tablet, 750 MG PO DAILY Prescribed by: BRADY BROWN on 05/22/182035 Lorazepam 0.5 Mg Tablet, 0.5 MG PO TID PRN for ANXIETY Prescribed by: NANNETTE REID on 05/01/18 1041 Magnesium Oxide 400 Mg Tablet, 400 MG PO BIDPC Prescribed by: YASMANI HAMILTON on 05/01/18 0906 Melatonin 3 Mg Tablet, 6 MG PO HS Prescribed by: NANNETTE REID on 05/01/18 1041 Metformin HCl 500 Mg Tab.er.24h, 1,000 MG PO BID TAKE 2 (500MG) TABS Prescribed by: NANNETTE REID on 05/01/18 1041 Metoprolol Tartrate 100 Mg Tablet, 100 MG PO BID, (Reported) Miconazole Nitrate 90 Gm Powder, 0 GM TOP BID to groin twice a day for 2 weeks Prescribed by: NANNETTE REID on 05/13/18 170 Omeprazole 40 Mg Capsule.dr, 40 MG PO BID, (Reported) Pramipexole Di-HCl 1 Mg Tablet, 1 MG PO 1700, (Reported) Sennosides 8.6 Mg Tablet, 8.6 MG PO BID Prescribed by: NANNETTE REID on 05/01/18 104 Patient Home Medication List Home Medication List Reviewed: Yes Review of Systems Review of Systems Constitutional: see HPI Eyes: No Symptoms Reported Ears, Nose, Mouth, Throat: no symptoms reported Respiratory: no symptoms reported Cardiovascular: no symptoms reported Genitourinary: no symptoms reported Musculoskeletal: no symptoms reported Skin: no symptoms reported Psychiatric/Neurological: No Symptoms Reported Past Fuafeyw-Fdmsbe-Khwcxl Hx Patient Social History 2nd Hand Smoke Exposure: Yes Recent Foreign Travel: No Contact w/Someone Who Travel: No Recent Hopitalizations: Yes Immunizations Up To Date Tetanus Booster (TDap): Unknown PED Vaccines UTD: No Date of Pneumonia Vaccine: Dec 02, 2017 Date of Influenza Vaccine: Jan 24, 2018 Seasonal Allergies Seasonal Allergies: Yes Past Medical History Surgeries: Yes (LAP SAULIEN recent back/ neckk / vertabrae surgery) Abdominal, Appendectomy, Cardiac, Defibrillator, Eye Surgery, Gallbladder, Hysterectomy, Oophorectomy, Orthopedic, Pacemaker, Tonsillectomy Respiratory: Yes (History of respiratory failure and intubation) Asthma, Pneumonia, Chronic Bronchitis, COPD Currently Using CPAP: No Currently Using BIPAP: No Cardiac: Yes (SUDDEN CARDIAC ARREST IN 2010 WHEN GETTING PREPPED FOR SURGERY, ) High Cholesterol, Irregular Heartbeat Neurological: Yes (PERIPHERAL NEUROPATHY--HANDS AND FEET) Headaches /Migraines, Neuropathy 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 Disorders: No Female 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 Sexually Transmitted Disease: No Genitourinary: Yes Kidney Infection, Bladder Infection, Kidney Stones, UTI-Chronic Gastrointestinal: Yes (S/P CORNELIUS FUNDOPLICATION; ESOPHAGEAL STRICTURES/DILATIONS; DYSPHAGIA) Gastroesophageal Reflux, Diverticulosis, Hemorrhoids, Polyps, C-Diff, Hiatal Hernia, Ulcer, Irritable Bowel Musculoskeletal: Yes Degenerate Disk Disease, Arthritis, Fibromyalgia, Chronic Back Pain, Fractures Endocrine: Yes Diabetes, Insulin dep, Diabetes, Non-Insulin dep HEENT: Yes Cataract Loss of Vision: Denies Hearing Impairment: Denies Cancer: No Psychosocial: Yes Anxiety, Depression Integumentary: Yes Pruritis Blood Disorders: No Adverse Reaction/Blood Tranf: No Family Medical History Alzheimer's disease 19 FATHER Cardiovascular disease 19 FATHER 19 MOTHER Completed stroke 19 MOTHER Hypertension 19 FATHER 19 MOTHER Myocardial infarction 19 FATHER 19 MOTHER No Family History of: Diabetes mellitus Physical Exam Vital Signs Capillary Refill : Height, Weight, BMI Height: 5'4.00" Weight: 215lbs. 0oz. 97.701807gk; 36.6 BMI Method:Stated General Appearance: WD/WN, no apparent distress HEENT: PERRL/EOMI, normal ENT inspection, TMs normal Neck: non-tender, full range of motion Respiratory: lungs clear, normal breath sounds, no respiratory distress, no accessory muscle use Gastrointestinal: normal bowel sounds, non tender Extremities: normal range of motion, non-tender Psychiatric: alert, oriented x 3 Crainal Nerves: normal hearing, normal speech, PERRL Skin: normal color, warm/dry Procedures/Interventions Date of ETT Placement: Apr 21, 2018 Time of ETT Placement: 1744 Progress/Results/Core Measures Results/Orders My Orders Orders - EARNESTINE CAMARGO APRN Diphenhydramine Injection (Benadryl Inje (08/07/18 21:15) Ketorolac Injection (Toradol Injection) (08/07/18 21:15) Prochlorperazine Injection (Compazine In (08/07/18 21:15) Departure Impression Primary Impression: Chronic headaches Qualified Codes: R51 - Headache Disposition: 01 HOME, SELF-CARE Condition: Stable Departure-Patient Inst. Decision time for Depature: 21:17 Referrals: NANNETTE REID DO (PCP/Family) Primary Care Physician Patient Instructions: Headache, Adult Add. Discharge Instructions: Call Dr. Reid tomorrow to make an appointment to be seen for recheck. Also discussed with her the frequency with which you're getting migraines and perhaps she could start you on daily medication to prevent the migraines. EARNESTINE CAMARGO STAGE RIGGER Aug 07, 2018 21:17
[2018-08-07 22:25] VITALS: BP 120/70
== END 2018-08-07 22:27 | disposition home or self-care (01) ==
LOC: EDUNIT# 20:53 → ER 20:54
DX: R51 Headache (principal); G89.29 Other chronic pain; J44.9 Chronic obstructive pulmonary disease, unspecified; E78.00 Pure hypercholesterolemia, unspecified; I25.2 Old myocardial infarction; E11.40 Type 2 diabetes mellitus with diabetic neuropathy, unspecified; K21.9 Gastro-esophageal reflux disease without esophagitis; K58.9 Irritable bowel syndrome, unspecified; M79.7 Fibromyalgia; F41.9 Anxiety disorder, unspecified; F32.9 Major depressive disorder, single episode, unspecified; Z86.010 Personal history of colon polyps; Z87.19 Personal history of other diseases of the digestive system; Z82.49 Family history of ischemic heart disease and other diseases of the circulatory system; Z87.442 Personal history of urinary calculi; Z87.440 Personal history of urinary (tract) infections; Z88.0 Allergy status to penicillin; Z88.2 Allergy status to sulfonamides; Z88.6 Allergy status to analgesic agent; Z88.8 Allergy status to other drugs, medicaments and biological substances; Z79.01 Long term (current) use of anticoagulants; Z79.4 Long term (current) use of insulin; Z98.890 Other specified postprocedural states; Z90.49 Acquired absence of other specified parts of digestive tract; Z95.810 Presence of automatic (implantable) cardiac defibrillator; Z90.710 Acquired absence of both cervix and uterus; Z95.0 Presence of cardiac pacemaker; Z90.89 Acquired absence of other organs; Z87.01 Personal history of pneumonia (recurrent); Z86.69 Personal history of other diseases of the nervous system and sense organs
CPT/HCPCS: 96372; 99284

== ENCOUNTER → 2018-08-27 | Outpatient (CLI) | payer MEDICARE ==
[2018-08-27 10:13] LABS: BASOPHILS % (AUTO) 0 % (0-10); EOSINOPHILS # (AUTO) 0.2 10^3/uL (0.0-0.3); EOSINOPHILS % (AUTO) 2 % (0-10); HEMATOCRIT 40 % (35-52); HEMOGLOBIN 13.1 G/DL (11.5-16.0); LYMPHOCYTES # (AUTO) 1.7 X 10^3 (1.0-4.0); LYMPHOCYTES % (AUTO) 24 % (12-44); MEAN CORPUSCULAR HEMOGLOBIN 28 PG (25-34); MEAN CORPUSCULAR HGB CONC 33 G/DL (32-36); MEAN CORPUSCULAR VOLUME 87 FL (80-99); MEAN PLATELET VOLUME 9.6 FL (7.4-10.4); MONOCYTES # (AUTO) 0.4 X 10^3 (0.0-1.0); MONOCYTES % (AUTO) 5 % (0-12); NEUTROPHILS # (AUTO) 5.1 X 10^3 (1.8-7.8); NEUTROPHILS % (AUTO) 69 % (42-75); PLATELET COUNT 293 10^3/uL (130-400); RED CELL DISTRIBUTION WIDTH 13.7 % (10.0-14.5); WHITE BLOOD COUNT 7.4 10^3/uL (4.3-11.0)
[2018-08-27 10:36] LABS: ALANINE AMINOTRANSFERASE 24 U/L (0-55); ALBUMIN 3.8 GM/DL (3.2-4.5); ALKALINE PHOSPHATASE 118 U/L (40-136); BILIRUBIN,TOTAL 0.2 MG/DL (0.1-1.0); BUN/CREATININE RATIO 17; CALCIUM 9.3 MG/DL (8.5-10.1); CARBON DIOXIDE 23 MMOL/L (21-32); CHLORIDE 102 MMOL/L (98-107); CREATININE SERUM 0.82 MG/DL (0.60-1.30); GFR ESTIMATED > 60; GLUCOSE 226 MG/DL (70-105); POTASSIUM 3.8 MMOL/L (3.6-5.0); SODIUM 136 MMOL/L (135-145); TOTAL PROTEIN 6.6 GM/DL (6.4-8.2)
[2018-08-27 10:58] LABS: FREE T4 (FREE THYROXINE) 1.04 NG/DL (0.70-1.48)
--- NOTE | 2018-08-27 11:42 | Diagnostic Imaging Report ---
INDICATION: Right breast pain. COMPARISON: 08/08/2017 and 05/11/2015. TECHNIQUE: 2D and 3D bilateral diagnostic mammography was performed with CAD. FINDINGS: Scattered fibroglandular densities are identified bilaterally. An asymmetric density with benign calcifications in the upper outer right breast appears stable. The overall breast parenchymal density is stable bilaterally. No new mass or malignant appearing microcalcifications are seen. The axillae are unremarkable. IMPRESSION: No mammographic features suspicious for malignancy are identified. ACR BI-RADS Category 2: Benign findings. Result letter will be mailed to the patient. Note: At least 10% of breast cancer is not imaged by mammography. Dictated by: Dictated on workstation # [id number]
== END ==
LOC: RAD 09:50
PROVIDERS: ATTEND Family Medicine
DX: D64.9 Anemia, unspecified (principal); E11.9 Type 2 diabetes mellitus without complications; E55.9 Vitamin D deficiency, unspecified; N64.4 Mastodynia
CPT/HCPCS: 36415; 77066; 80053; 82306; 82607; 82728; 83036; 83540; 84439; 84443; 85025

== ENCOUNTER → 2018-09-08 | Outpatient (CLI) | payer MEDICARE ==
--- NOTE | 2018-09-08 14:59 | Diagnostic Imaging Report ---
EXAMINATION: Chest 2 view HISTORY: Chest pain FINDINGS: Comparison is 06/12/2018. Left subclavian pacemaker defibrillator is in place with leads in right atrium and right ventricle. There is anterior fusion of cervical spine. The lungs are clear. No edema. No pneumonia. No pleural effusion. No pneumothorax. Heart is normal in size. There is compression fracture of the mid thoracic spine which has been treated by vertebroplasty. IMPRESSION: 1. Clear lungs. Dictated by: Dictated on workstation # [id number]
--- NOTE | 2018-09-08 15:14 | Diagnostic Imaging Report ---
INDICATION: Left wrist pain. TIME OF EXAM: 02:43 p.m. FINDINGS: Three views of the left wrist show degenerative changes at the first CMC joint as well as the triscaphe joint. No acute fracture is seen. Distal radius and ulna are intact. Metacarpals are unremarkable. IMPRESSION: Degenerative changes at the carpus. No acute bony abnormality is seen. Dictated by: Dictated on workstation # [id number]
== END ==
LOC: RAD 14:28
PROVIDERS: ATTEND Nurse Practitioner Family
DX: M19.032 Primary osteoarthritis, left wrist (principal); R07.9 Chest pain, unspecified; M54.9 Dorsalgia, unspecified; Z95.0 Presence of cardiac pacemaker
CPT/HCPCS: 71046; 73110

== ENCOUNTER 2018-11-09 00:52 | Emergency (ER) | payer MEDICARE ==
[~2018-11-09] VITALS: Ht 162.6 cm; Wt 97.5 kg
[2018-11-09] MEDS ORDERED: PROMETHAZINE INJ 25 MG/ML (PHENERGAN) AMP IVP STA (01:05)
[2018-11-09] MEDS ORDERED: diphenhydrAMINE 50 MG/ML INJ (BENADRYL) IV STA (01:05)
[2018-11-09] MEDS ORDERED: KETOROLAC 30 MG/ML VIAL IVP STA (01:05)
[2018-11-09] MEDS ORDERED: NS IV 500 ML 500 ML IV ONE (01:05)
[2018-11-09 01:24] LABS: BASOPHILS # (AUTO) 0.1 10^3/uL (0.0-0.1); BASOPHILS % (AUTO) 0 % (0-10); EOSINOPHILS # (AUTO) 0.3 10^3/uL (0.0-0.3); EOSINOPHILS % (AUTO) 2 % (0-10); HEMATOCRIT 42 % (35-52); HEMOGLOBIN 13.7 G/DL (11.5-16.0); LYMPHOCYTES # (AUTO) 3.8 X 10^3 (1.0-4.0); LYMPHOCYTES % (AUTO) 29 % (12-44); MEAN CORPUSCULAR HEMOGLOBIN 29 PG (25-34); MEAN CORPUSCULAR HGB CONC 33 G/DL (32-36); MEAN CORPUSCULAR VOLUME 89 FL (80-99); MEAN PLATELET VOLUME 9.5 FL (7.4-10.4); MONOCYTES # (AUTO) 0.8 X 10^3 (0.0-1.0); MONOCYTES % (AUTO) 6 % (0-12); NEUTROPHILS # (AUTO) 8.2 X 10^3 (1.8-7.8); NEUTROPHILS % (AUTO) 62 % (42-75); PLATELET COUNT 312 10^3/uL (130-400); RED CELL DISTRIBUTION WIDTH 14.3 % (10.0-14.5); WHITE BLOOD COUNT 13.1 10^3/uL (4.3-11.0)
[2018-11-09 01:31] LABS: INR 0.9 (0.8-1.4); PROTHROMBIN TIME PATIENT 11.9 SEC (12.2-14.7)
--- NOTE | 2018-11-09 01:38 | ED Chest Pain ---
General Stated Complaint: ARMS AND BACK PAIN, NAUSEA, MIGRAINE Source: patient Exam Limitations: no limitations History of Present Illness Date Seen by Provider: Nov 09, 2018 Time Seen by Provider: 01:01 Initial Comments Here with report of migraine that started 24 hours ago that is typical and associated with nausea but this time started with bilateral arm pain that scanned into her chest and goes to her back. That started 2 hours ago and has been fairly persistent. More on the right arm than the left. She does have pacemaker defibrillator and does have cardiac history. She follows with Dr. Cerda and her next appointment with him is next Saturday. She does follow with Dr. Reid as well. Has been seen multiple times for the migraine. 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) NTG SL MEAT WRAPPER: No Associated Symptoms: No abdominal pain; back pain, fatigue; No fever/chills; headache, nausea/vomiting; No shortness of breath; weakness Allergies and Home Medications Allergies Coded Allergies: Penicillins (Unverified Allergy, Severe, Pt has received Cefepime & Ceftriaxone in the past w/o issue, 07/21/18) SWELLING, RASH, ITCHING Sulfa (Sulfonamide Antibiotics) (Verified Allergy, Mild, 07/21/18) RASH aspirin (Verified Adverse Reaction, Mild, ASPIRIN SENSITIVE, 07/21/18) UPSET STOMACH sumatriptan (Verified Adverse Reaction, Mild, PALPITATIONS, 07/21/18) IRRITABLE Home Medications Acetaminophen 650 Mg Tablet.er, 650 MG PO Q4H Prescribed by: NANNETTE REID on 05/01/18 1042 Apixaban 5 Mg Tablet, 5 MG PO Q12H Prescribed by: YASMANI HAMILTON on 05/01/18 09 Buspirone HCl 5 Mg Tablet, 5 MG PO TID, (Reported) Diltiazem HCl 240 Mg Cap.er.24h, 240 MG PO DAILY Prescribed by: YASMANI HAMILTON on 05/01/18 0906 Doxepin HCl 10 Mg Capsule, 20 MG PO HS Prescribed by: NANNETTE REID on 05/13/18 1711 Hydrocodone Bit/Acetaminophen 1 Tab Tab, 1 TAB PO Q4H PRN for PAIN-MODERATE Prescribed by: NANNETTE REID on 05/01/18 104 Insulin Determir 1,000 Units/10 Ml Soln, 50 UNIT SQ DAILY Prescribed by: NANNETTE REID on 05/01/18 104 Ipratropium/Albuterol Sulfate 3 Ml Ampul.neb, 3 ML NEB Q6H PRN for SHORTNESS OF BREATH, (Reported) Levofloxacin 750 Mg Tablet, 750 MG PO DAILY Prescribed by: BRADY BROWN on 05/22/182035 Lorazepam 0.5 Mg Tablet, 0.5 MG PO TID PRN for ANXIETY Prescribed by: NANNETTE REID on 05/01/18 104 Magnesium Oxide 400 Mg Tablet, 400 MG PO BIDPC Prescribed by: YASMANI HAMILTON on 05/01/18 09 Melatonin 3 Mg Tablet, 6 MG PO HS Prescribed by: NANNETTE REID on 05/01/18 104 Metformin HCl 500 Mg Tab.er.24h, 1,000 MG PO BID TAKE 2 (500MG) TABS Prescribed by: NANNETTE REID on 05/01/18 104 Metoprolol Tartrate 100 Mg Tablet, 100 MG PO BID, (Reported) Miconazole Nitrate 90 Gm Powder, 0 GM TOP BID to groin twice a day for 2 weeks Prescribed by: NANNETTE REID on 05/13/18 170 Omeprazole 40 Mg Capsule.dr, 40 MG PO BID, (Reported) Pramipexole Di-HCl 1 Mg Tablet, 1 MG PO 1700, (Reported) Sennosides 8.6 Mg Tablet, 8.6 MG PO BID Prescribed by: NANNETTE REID on 05/01/18 104 Patient Home Medication List Home Medication List Reviewed: Yes Review of Systems Review of Systems Constitutional: see HPI; No chills, No fever; weakness EENTM: No Blurred Vision; Eye Pain Respiratory: No Symptoms Reported Cardiovascular: See HPI, Chest Pain; Denies Edema Gastrointestinal: Denies Abdominal Pain; Nausea Genitourinary: No Symptoms Reported Musculoskeletal: see HPI, back pain, neck pain Skin: no symptoms reported Psychiatric/Neurological: See HPI, Headache; Denies Paresthesia All Other Systems Reviewed Negative Unless Noted: Yes Past Lsyefnr-Hiexpu-Fpfhso Hx Past Med/Social Hx: Reviewed Nursing Past Med/Soc Hx Patient Social History Alcohol Use: Denies Use Recreational Drug Use: No Smoking Status: Never a Smoker 2nd Hand Smoke Exposure: Yes Recent Foreign Travel: No Contact w/Someone Who Travel: No Recent Hopitalizations: No Immunizations Up To Date Tetanus Booster (TDap): Unknown PED Vaccines UTD: No Date of Pneumonia Vaccine: Dec 02, 2017 Date of Influenza Vaccine: Jan 24, 2018 Seasonal Allergies Seasonal Allergies: Yes Past Medical History Surgeries: Yes (LAP NISSIEN recent back/ neckk / vertabrae surgery) Abdominal, Appendectomy, Cardiac, Defibrillator, Eye Surgery, Gallbladder, Hysterectomy, Oophorectomy, Orthopedic, Pacemaker, Tonsillectomy Respiratory: Yes (History of respiratory failure and intubation) Asthma, Pneumonia, Chronic Bronchitis, COPD Currently Using CPAP: No Currently Using BIPAP: No Cardiac: Yes (SUDDEN CARDIAC ARREST IN 2010 WHEN GETTING PREPPED FOR SURGERY, ) High Cholesterol, Irregular Heartbeat Neurological: Yes (PERIPHERAL NEUROPATHY--HANDS AND FEET) Headaches /Migraines, Neuropathy 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 Disorders: No Female 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 Disorders: Denies 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 Sexually Transmitted Disease: No Genitourinary: Yes Kidney Infection, Bladder Infection, Kidney Stones, UTI-Chronic Gastrointestinal: Yes (S/P CORNELIUS FUNDOPLICATION; ESOPHAGEAL STRICTURES/DILATIONS; DYSPHAGIA) Gastroesophageal Reflux, Diverticulosis, Hemorrhoids, Polyps, C-Diff, Hiatal Hernia, Ulcer, Irritable Bowel Musculoskeletal: Yes Degenerate Disk Disease, Arthritis, Fibromyalgia, Chronic Back Pain, Fractures Endocrine: Yes Diabetes, Insulin dep, Diabetes, Non-Insulin dep HEENT: Yes Cataract Loss of Vision: Denies Hearing Impairment: Denies Cancer: No Psychosocial: Yes Anxiety, Depression Integumentary: Yes Pruritis Blood Disorders: No Adverse Reaction/Blood Tranf: No Family Medical History Reviewed Nursing Family Hx Alzheimer's disease 19 FATHER Cardiovascular disease 19 FATHER 19 MOTHER Completed stroke 19 MOTHER Hypertension 19 FATHER 19 MOTHER Myocardial infarction 19 FATHER 19 MOTHER No Family History of: Diabetes mellitus Physical Exam Vital Signs Vital Signs - First Documented 11/09/18 00:58 Temp 97.4 Pulse 96 Resp 16 B/P (MAP) 147/73 (97) Pulse Ox 95 O2 Delivery Room Air Capillary Refill : Height, Weight, BMI Height: 5'4.00" Weight: 215lbs. 0oz. 97.694038ct; 36.6 BMI Method:Stated General Appearance: WD/WN, Mild Distress HEENT: PERRL/EOMI, Pharynx Normal Neck: Full Range of Motion, Normal Inspection, Non Tender, Supple Respiratory: Lungs Clear, Normal Breath Sounds Cardiovascular: Regular Rate, Rhythm, No Murmur Gastrointestinal: Non Tender, Soft Extremity: Normal Range of Motion, Non Tender Neurologic/Psychiatric: Alert, Oriented x3, No Motor/Sensory Deficits, 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 Skin: Normal Color, Warm/Dry Procedures/Interventions Date of ETT Placement: Apr 21, 2018 Time of ETT Placement: 1743 Progress/Results/Core Measures Results/Orders Lab Results Laboratory Tests Test 11/09/18 01:10 11/09/18 03:00 Range/Units White Blood Count 13.1 H 4.3-11.0 10^3/uL Red Blood Count 4.72 4.35-5.85 10^6/uL Hemoglobin 13.7 11.5-16.0 G/DL Hematocrit 42 35-52 % Mean Corpuscular Volume 89 80-99 FL Mean Corpuscular Hemoglobin 29 25-34 PG Mean Corpuscular Hemoglobin Concent 33 32-36 G/DL Red Cell Distribution Width 14.3 10.0-14.5 % Platelet Count 312 130-400 10^3/uL Mean Platelet Volume 9.5 7.4-10.4 FL Neutrophils (%) (Auto) 62 42-75 % Lymphocytes (%) (Auto) 29 12-44 % Monocytes (%) (Auto) 6 0-12 % Eosinophils (%) (Auto) 2 0-10 % Basophils (%) (Auto) 0 0-10 % Neutrophils # (Auto) 8.2 H 1.8-7.8 X 10^3 Lymphocytes # (Auto) 3.8 1.0-4.0 X 10^3 Monocytes # (Auto) 0.8 0.0-1.0 X 10^3 Eosinophils # (Auto) 0.3 0.0-0.3 10^3/uL Basophils # (Auto) 0.1 0.0-0.1 10^3/uL Prothrombin Time 11.9 L 12.2-14.7 SEC INR Comment 0.9 0.8-1.4 Activated Partial Thromboplast Time 20 L 24-35 SEC Sodium Level 140 135-145 MMOL/L Potassium Level 3.7 3.6-5.0 MMOL/L Chloride Level 102 98-107 MMOL/L Carbon Dioxide Level 22 21-32 MMOL/L Anion Gap 16 H 5-14 MMOL/L Blood Urea Nitrogen 12 7-18 MG/DL Creatinine 0.84 0.60-1.30 MG/DL Estimat Glomerular Filtration Rate > 60 BUN/Creatinine Ratio 14 Glucose Level 156 H 70-105 MG/DL Calcium Level 9.7 8.5-10.1 MG/DL Corrected Calcium 9.6 8.5-10.1 MG/DL Magnesium Level 1.6 1.6-2.4 MG/DL Total Bilirubin 0.4 0.1-1.0 MG/DL Aspartate Amino Transf (AST/SGOT) 24 5-34 U/L Alanine Aminotransferase (ALT/SGPT) 29 0-55 U/L Alkaline Phosphatase 129 40-136 U/L Myoglobin 48.5 10.0-92.0 NG/ML Troponin I < 0.028 < 0.028 <0.028 NG/ML C-Reactive Protein High Sensitivity 0.92 H 0.00-0.50 MG/DL Total Protein 7.4 6.4-8.2 GM/DL Albumin 4.1 3.2-4.5 GM/DL My Orders Orders - CHERRIE CHURCH MD Ketorolac Injection (Toradol Injection) (11/09/18 01:05) Promethazine Injection (Phenergan Injec (11/09/18 01:05) Cbc With Automated Diff (11/09/18 01:05) Magnesium (11/09/18 01:05) Chest 1 View, Ap/Pa Only (11/09/18 01:05) Ekg Tracing (11/09/18 01:05) Cardiac Profile 1 (11/09/18 01:05) Comprehensive Metabolic Panel (11/09/18 01:05) Myoglobin Serum (11/09/18 01:05) Protime With Inr (11/09/18 01:05) Partial Thromboplastin Time (11/09/18 01:05) O2 (11/09/18 01:05) Monitor-Rhythm Ecg Trace Only (11/09/18 01:05) Lipid Panel (11/10/18 06:00) Ed Iv/Invasive Line Start (11/09/18 01:05) Diphenhydramine Injection (Benadryl Inje (11/09/18 01:05) Ed Iv/Invasive Line Start (11/09/18 01:05) Ns Iv 500 Ml (Sodium Chloride 0.9%) (11/09/18 01:05) Hydrocodone/Apap 5/325 Tablet (Lortab 5 (11/09/18 02:15) Hs C Reactive Protein (11/09/18 02:08) Troponin I (11/09/18 03:00) Medications Given in ED Current Medications Medications Dose Ordered Sig/Alannah Route Start Time Stop Time Status Last Admin Dose Admin Acetaminophen/ Hydrocodone Bitart 1 tab ONCE ONCE PO 11/09/18 02:15 11/09/18 02:16 DC 11/09/18 02:13 1 TAB Sodium Chloride 500 ml @ 0 mls/hr Q0M ONCE IV 11/09/18 01:05 11/09/18 01:10 DC 11/09/18 01:29 0 MLS/HR Vital Signs/I&O 11/09/18 11/09/18 11/09/18 00:58 01:10 02:13 Temp 97.4 97.4 Pulse 96 Resp 16 B/P (MAP) 147/73 (97) Pulse Ox 95 95 O2 Delivery Room Air Room Air Progress Progress Note : Progress Note Seen and evaluated. IV, labs, EKG and chest x-ray ordered. Patient has her to take an aspirin and acetaminophen. Toradol 30 mg IV, Benadryl 25 mg IV and Phenergan 25 mg IV ordered for her typical headache. Normal saline 500 mL bolus. Monitor patient. 0209: Initial set of Enzymes are negative. Patient's headache is better but still has the arm and back pain. We will repeat troponin at 2 are marked and reevaluate. Hydrocodone 5/325 one tab by mouth given. Monitor patient. 0334: Repeat troponin negative. Overall patient is feeling better. She reports that she is out of her gabapentin prescription but should develop pick that up today. I did talk to her about the importance of keeping regular on her medicines. She does have appointment with Dr. Cerda this week and she will keep that appointment. Discharged home with return precautions. Patient verbalize understanding instructions and agreement with plan. Initial ECG Impression Date: Nov 09, 2018 Initial ECG Impression Time: 01:14 Initial ECG Rate: 82 Initial ECG Rhythm: Normal Sinus Comment Sinus rhythm with left axis deviation. No evidence of ST elevation [place]. Unchanged from previous of 06/12/18 now with slower rate. Interpreted by me. Diagnostic Imaging Diagonstic Imaging: Xray Plain Films/CT/US/NM/MRI: chest Comments No acute findings Departure Impression Primary Impression: Chest pain Qualified Codes: R07.9 - Chest pain, unspecified Additional Impression: Migraine headache Qualified Codes: G43.909 - Migraine, unspecified, not intractable, without status migrainosus Disposition: HOME, SELF-CARE Condition: Improved Departure-Patient Inst. Decision time for Depature: 03:35 Referrals: NANNETTE REID DO (PCP/Family) Primary Care Physician Patient Instructions: Chest Pain (DC), Migraine Headache (DC) Add. Discharge Instructions: Continue home medications as directed. Get your gabapentin prescription filled and restart that today. Follow-up with your doctor this week as scheduled. Follow up with your medical doctor within one week for recheck and further evaluation. Drink plenty of fluids and get plenty of rest. Return for worse pain, fever, vomiting, weakness, breathing problems or other concerns as needed. CHERRIE CHURCH MD Nov 09, 2018 01:38
[2018-11-09 01:40] LABS: ALANINE AMINOTRANSFERASE 29 U/L (0-55); ALBUMIN 4.1 GM/DL (3.2-4.5); ALKALINE PHOSPHATASE 129 U/L (40-136); BILIRUBIN,TOTAL 0.4 MG/DL (0.1-1.0); BUN/CREATININE RATIO 14; CALCIUM 9.7 MG/DL (8.5-10.1); CARBON DIOXIDE 22 MMOL/L (21-32); CHLORIDE 102 MMOL/L (98-107); CREATININE SERUM 0.84 MG/DL (0.60-1.30); GFR ESTIMATED > 60; GLUCOSE 156 MG/DL (70-105); MAGNESIUM 1.6 MG/DL (1.6-2.4); POTASSIUM 3.7 MMOL/L (3.6-5.0); SODIUM 140 MMOL/L (135-145); TOTAL PROTEIN 7.4 GM/DL (6.4-8.2)
[2018-11-09] MEDS ORDERED: HYDROcodone/APAP 5 MG/325 MG (LORTAB) TAB PO ONE (02:15)
[2018-11-09 03:41] VITALS: BP 98/56
--- NOTE | 2018-11-09 06:51 | Diagnostic Imaging Report ---
Indication: Chest pain, cardiac pacemaker. Comparison: 09/18/2018. Findings: Single view of the chest demonstrates stable cardiac enlargement. Pacemaker is stable. Lungs are clear. There is no pneumothorax The osseous structures are stable. Impression: No acute cardiopulmonary findings. Dictated by: Dictated on workstation # [id number]
== END 2018-11-09 03:43 | disposition home or self-care (01) ==
LOC: EDUNIT# 00:52 → ER 00:55
DX: R07.9 Chest pain, unspecified (principal); G43.909 Migraine, unspecified, not intractable, without status migrainosus; J44.9 Chronic obstructive pulmonary disease, unspecified; E78.00 Pure hypercholesterolemia, unspecified; E11.42 Type 2 diabetes mellitus with diabetic polyneuropathy; I25.2 Old myocardial infarction; K21.9 Gastro-esophageal reflux disease without esophagitis; K58.9 Irritable bowel syndrome, unspecified; F41.9 Anxiety disorder, unspecified; F32.9 Major depressive disorder, single episode, unspecified; Z86.010 Personal history of colon polyps; Z87.01 Personal history of pneumonia (recurrent); Z88.0 Allergy status to penicillin; Z88.2 Allergy status to sulfonamides; Z88.6 Allergy status to analgesic agent; Z79.4 Long term (current) use of insulin; Z79.84 Long term (current) use of oral hypoglycemic drugs; Z90.49 Acquired absence of other specified parts of digestive tract; Z95.810 Presence of automatic (implantable) cardiac defibrillator; Z90.710 Acquired absence of both cervix and uterus; Z90.89 Acquired absence of other organs; Z87.440 Personal history of urinary (tract) infections; Z82.49 Family history of ischemic heart disease and other diseases of the circulatory system
CPT/HCPCS: 36415; 71045; 80053; 83735; 83874; 84484; 85025; 85610; 85730; 86141; 93005; 93041; 96374; 96375

== ENCOUNTER 2018-11-21 19:36 | Emergency (ER) | payer MEDICARE | END 2018-11-21 21:07 | disposition home or self-care (01) | LOC: ER 19:36 ==

== ENCOUNTER → 2018-11-29 | Outpatient (CLI) | payer MEDICARE ==
[2018-11-29 13:40] LABS: BASOPHILS # (AUTO) 0.1 10^3/uL (0.0-0.1); BASOPHILS % (AUTO) 1 % (0-10); EOSINOPHILS # (AUTO) 0.2 10^3/uL (0.0-0.3); EOSINOPHILS % (AUTO) 2 % (0-10); HEMATOCRIT 40 % (35-52); HEMOGLOBIN 13.1 G/DL (11.5-16.0); LYMPHOCYTES # (AUTO) 2.2 X 10^3 (1.0-4.0); LYMPHOCYTES % (AUTO) 22 % (12-44); MEAN CORPUSCULAR HEMOGLOBIN 29 PG (25-34); MEAN CORPUSCULAR HGB CONC 33 G/DL (32-36); MEAN CORPUSCULAR VOLUME 89 FL (80-99); MONOCYTES # (AUTO) 0.5 X 10^3 (0.0-1.0); MONOCYTES % (AUTO) 5 % (0-12); NEUTROPHILS % (AUTO) 70 % (42-75); PLATELET COUNT 271 10^3/uL (130-400); RED CELL DISTRIBUTION WIDTH 13.7 % (10.0-14.5)
[2018-11-29 14:02] LABS: ALANINE AMINOTRANSFERASE 28 U/L (0-55); ALBUMIN 3.8 GM/DL (3.2-4.5); ALKALINE PHOSPHATASE 116 U/L (40-136); BILIRUBIN,TOTAL 0.3 MG/DL (0.1-1.0); BUN/CREATININE RATIO 18; CALCIUM 9.6 MG/DL (8.5-10.1); CARBON DIOXIDE 26 MMOL/L (21-32); CHLORIDE 103 MMOL/L (98-107); CHOLESTEROL 203 MG/DL (< 200); CREATININE SERUM 0.78 MG/DL (0.60-1.30); GFR ESTIMATED > 60; GLUCOSE 216 MG/DL (70-105); HDL CHOLESTEROL 46 MG/DL (40-60); POTASSIUM 3.9 MMOL/L (3.6-5.0); SODIUM 138 MMOL/L (135-145); TOTAL PROTEIN 6.7 GM/DL (6.4-8.2); TRIGLYCERIDES 290 MG/DL (<150); VLDL CHOLESTEROL 58 MG/DL (5-40)
[2018-11-29 14:22] LABS: FREE T4 (FREE THYROXINE) 1.01 NG/DL (0.70-1.48)
== END ==
LOC: LAB 13:14
PROVIDERS: ATTEND Family Medicine
DX: E55.9 Vitamin D deficiency, unspecified (principal); E53.8 Deficiency of other specified B group vitamins; E11.9 Type 2 diabetes mellitus without complications
CPT/HCPCS: 36415; 80053; 80061; 82306; 82607; 83036; 84439; 84443; 85025

== ENCOUNTER 2018-12-22 18:41 | Emergency (ER) | payer MEDICARE ==
[~2018-12-22] VITALS: Ht 160 cm; Wt 100.0 kg
[2018-12-22] MEDS ORDERED: ORPHENADRINE 60 MG/2 ML (NORFLEX) AMP IM ONE (19:15)
[2018-12-22] MEDS ORDERED: KETOROLAC 30 MG/ML VIAL IM ONE (19:15)
--- NOTE | 2018-12-22 19:36 | ED General ---
General Chief Complaint: General Problems/Pain Stated Complaint: PAIN ON LT SIDE Nursing Triage Note: Pt ambulates to triage with cane, c/o intermittent left sided pain x 1 month. Pt states pain starts in lower back and radiates to abdomen. Pt states she's "just been dealing with the pain but is worse and constant today". Pt reports no changes in urination or bowel movements, denies N/V. Nursing Sepsis Screen: No Definite Risk History of Present Illness Date Seen by Provider: Dec 22, 2018 Time Seen by Provider: 19:00 Initial Comments Patient is a 73-year-old female who presents to the ER with complaints of left flank pain. Wraps from the back to the abdomen for one month, the pain is usually intermittent but today it has been in waves. Patient denies taking anything for the pain or being evaluated for this type of pain before today. Patient denies any urinary symptoms or changes in her bowel habits, she does have a hx of kidney stones but denies the pain she usually associates with that. Patient denies nausea,vomiting, shortness of breath, and chest pain. Patient reports that the pain is worse with any type of movements, and alleviated with rest. Timing/Duration: Getting Worse, Intermittent, Other (one month) Severity: Mild Modifying Factors: improves with Immobilization; worse with Movement; improves with Rest Associated Systoms: Denies Symptoms Allergies and Home Medications Allergies Coded Allergies: Penicillins (Unverified Allergy, Severe, Pt has received Cefepime & Ceftriaxone in the past w/o issue, 07/21/18) SWELLING, RASH, ITCHING Sulfa (Sulfonamide Antibiotics) (Verified Allergy, Mild, 07/21/18) RASH aspirin (Verified Adverse Reaction, Mild, ASPIRIN SENSITIVE, 07/21/18) UPSET STOMACH sumatriptan (Verified Adverse Reaction, Mild, PALPITATIONS, 07/21/18) IRRITABLE Home Medications Acetaminophen 650 Mg Tablet.er, 650 MG PO Q4H Prescribed by: NANNETTE REVELES on 05/01/18 104 Apixaban 5 Mg Tablet, 5 MG PO Q12H Prescribed by: YASMANI HAMILTON on 05/01/18905 Buspirone HCl 5 Mg Tablet, 5 MG PO TID, (Reported) Diltiazem HCl 240 Mg Cap.er.24h, 240 MG PO DAILY Prescribed by: YASMANI HAMILTON on 05/01/18 09 Doxepin HCl 10 Mg Capsule, 20 MG PO HS Prescribed by: NANNETTE REVELES on 05/13/18 171 Hydrocodone Bit/Acetaminophen 1 Tab Tab, 1 TAB PO Q4H PRN for PAIN-MODERATE Prescribed by: NANNETTE REVELES on 05/01/18 104 Insulin Determir 1,000 Units/10 Ml Soln, 50 UNIT SQ DAILY Prescribed by: NANNETTE REVELES on 05/01/18 104 Ipratropium/Albuterol Sulfate 3 Ml Ampul.neb, 3 ML NEB Q6H PRN for SHORTNESS OF BREATH, (Reported) Levofloxacin 750 Mg Tablet, 750 MG PO DAILY Prescribed by: BRADY BROWN on 05/22/182035 Lorazepam 0.5 Mg Tablet, 0.5 MG PO TID PRN for ANXIETY Prescribed by: NANNETTE REVELES on 05/01/18 104 Magnesium Oxide 400 Mg Tablet, 400 MG PO BIDPC Prescribed by: YASMANI HAMILTON on 05/01/18905 Melatonin 3 Mg Tablet, 6 MG PO HS Prescribed by: NANNETTE REVELES on 05/01/18 104 Metformin HCl 500 Mg Tab.er.24h, 1,000 MG PO BID TAKE 2 (500MG) TABS Prescribed by: NANNETTE REVELES on 05/01/181040 Metoprolol Tartrate 100 Mg Tablet, 100 MG PO BID, (Reported) Miconazole Nitrate 90 Gm Powder, 0 GM TOP BID to groin twice a day for 2 weeks Prescribed by: NANNETTE REVELES on 05/13/18 170 Omeprazole 40 Mg Capsule.dr, 40 MG PO BID, (Reported) Pramipexole Di-HCl 1 Mg Tablet, 1 MG PO 1700, (Reported) Sennosides 8.6 Mg Tablet, 8.6 MG PO BID Prescribed by: NANNETTE REVELES on 05/01/18 104 Patient Home Medication List Home Medication List Reviewed: Yes Review of Systems Review of Systems Constitutional: no symptoms reported EENTM: see HPI, no symptoms reported Respiratory: no symptoms reported, see HPI Cardiovascular: no symptoms reported, see HPI Gastrointestinal: no symptoms reported, see HPI Genitourinary: no symptoms reported, see HPI Musculoskeletal: no symptoms reported, see HPI Skin: no symptoms reported, see HPI Psychiatric/Neurological: No Symptoms Reported, See HPI Hematologic/Lymphatic: No Symptoms Reported, See HPI Immunological/Allergic: no symptoms reported, see HPI Past Dubhfjh-[id number]-Clwrwf Hx Past Med/Social Hx: Reviewed Nursing Past Med/Soc Hx Patient Social History Alcohol Use: Denies Use Recreational Drug Use: No Smoking Status: Never a Smoker 2nd Hand Smoke Exposure: Yes Recent Foreign Travel: No Contact w/Someone Who Travel: No Recent Infectious Disease Expo: No Recent Hopitalizations: No (Apr 2018 sepsis/Pneumonia ) Physical Abuse: No Sexual Abuse: No Mistreated: No Fear: No Immunizations Up To Date Tetanus Booster (TDap): Unknown PED Vaccines UTD: No Date of Pneumonia Vaccine: Dec 02, 2017 Date of Influenza Vaccine: Jan 24, 2018 Seasonal Allergies Seasonal Allergies: Yes Past Medical History Surgeries: Yes (LAP NISSIEN recent back/ neckk / vertabrae surgery, aicd) Abdominal, Appendectomy, Cardiac, Defibrillator, Eye Surgery, Gallbladder, Hysterectomy, Oophorectomy, Orthopedic, Pacemaker, Tonsillectomy Respiratory: Yes Asthma, Pneumonia, Chronic Bronchitis, COPD Currently Using CPAP: No Currently Using BIPAP: No Cardiac: Yes Coronary Artery Disease, High Cholesterol, Hypertension, Irregular Heartbeat Neurological: Yes Headaches /Migraines, Neuropathy 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 Disorders: No Female 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 Disorders: Denies [employer]AT[employer] History: Menopausal Sexually Transmitted Disease: No Genitourinary: Yes Kidney Infection, Bladder Infection, Kidney Stones, UTI-Chronic Gastrointestinal: Yes (S/P CORNELIUS FUNDOPLICATION; ESOPHAGEAL STRICTURES/DILATIONS; DYSPHAGIA) Gastroesophageal Reflux, Diverticulosis, Hemorrhoids, Polyps, C-Diff, Hiatal Hernia, Ulcer, Irritable Bowel Musculoskeletal: Yes Degenerate Disk Disease, Arthritis, Fibromyalgia, Chronic Back Pain, Fractures Endocrine: Yes Diabetes, Insulin dep, Diabetes, Non-Insulin dep HEENT: Yes Cataract Loss of Vision: Denies Hearing Impairment: Denies Cancer: No Psychosocial: Yes Anxiety, Depression Integumentary: Yes Pruritis Blood Disorders: No Adverse Reaction/Blood Tranf: No Family Medical History Alzheimer's disease 19 FATHER Cardiovascular disease 19 FATHER 19 MOTHER Completed stroke 19 MOTHER Hypertension 19 FATHER 19 MOTHER Myocardial infarction 19 FATHER 19 MOTHER No Family History of: Diabetes mellitus Physical Exam Vital Signs Vital Signs - First Documented 12/22/18 18:49 Temp 36.2 Pulse 74 Resp 19 B/P (MAP) 137/77 (97) Pulse Ox 98 O2 Delivery Room Air Capillary Refill : Less Than 3 Seconds Height, Weight, BMI Height: 5'4.00" Weight: 215lbs. 0oz. 97.409237cc; 39.00 BMI Method:Stated General Appearance: No Apparent Distress, WD/WN Eyes: Bilateral Eye Normal Inspection, Bilateral Eye PERRL HEENT: PERRL/EOMI, TMs Normal, Normal ENT Inspection Neck: Full Range of Motion, Normal Inspection, Non Tender, Supple Respiratory: Chest Non Tender, Lungs Clear, Normal Breath Sounds, No Accessory Muscle Use, No Respiratory Distress, Other (left side tender on palpation) Cardiovascular: Regular Rate, Rhythm, No Edema, No Murmur, Normal Peripheral Pulses Gastrointestinal: Normal Bowel Sounds, Non Tender, Soft Back: Normal Inspection Extremity: Normal Capillary Refill, Normal Inspection, Normal Range of Motion, Non Tender Neurologic/Psychiatric: Alert, Oriented x3, No Motor/Sensory Deficits Skin: Normal Color, Warm/Dry Procedures/Interventions Date of ETT Placement: Apr 21, 2018 Time of ETT Placement: 1743 Progress/Results/Core Measures Suspected Sepsis Recent Fever Within 48 Hours: No Infection Criteria Present: None New/Unexplained Altered Menta: No Sepsis Screen: No Definite Risk SIRS Temperature: Pulse: 74 Respiratory Rate: 19 Blood Pressure 137 /77 Mean: 97 Results/Orders Lab Results Laboratory Tests Test 12/22/18 20:22 Range/Units Urine Color YELLOW Urine Clarity CLEAR Urine pH 8 5-9 Urine Specific [place] 1.010 L 1.016-1.022 Urine Protein NEGATIVE NEGATIVE Urine Glucose (UA) NEGATIVE NEGATIVE Urine Ketones NEGATIVE NEGATIVE Urine Nitrite NEGATIVE NEGATIVE Urine Bilirubin NEGATIVE NEGATIVE Urine Urobilinogen NORMAL NORMAL MG/DL Urine Leukocyte Esterase 1+ H NEGATIVE Urine RBC (Auto) NEGATIVE NEGATIVE Urine RBC NONE /HPF Urine WBC RARE /HPF Urine Squamous Epithelial Cells 5-10 /HPF Urine Crystals NONE /LPF Urine Bacteria TRACE /HPF Urine Casts NONE /LPF Urine Mucus NEGATIVE /LPF Urine Culture Indicated NO My Orders Orders - KELLY [facility]URN Ketorolac Injection (Toradol Injection) (12/22/18 19:15) Orphenadrine Injection (Norflex Injectio (12/22/18 19:15) Ua Culture If Indicated (12/22/18 20:01) Hyoscyamine Sl Tablet (Levsin Sl Tablet) (12/22/18 21:00) Tramadol Tablet (Ultram Tablet) (12/22/18 21:00) Rx-Tramadol Hcl (Rx-Ultram) (12/22/18 21:31) Medications Given in ED Current Medications Medications Dose Ordered Sig/Alannah Route Start Time Stop Time Status Last Admin Dose Admin Hyoscyamine Sulfate 0.125 mg ONCE ONCE PO 12/22/18 21:00 12/22/18 21:01 DC 12/22/18 21:06 0.125 MG Ketorolac Tromethamine 60 mg ONCE ONCE IM 12/22/18 19:15 12/22/18 19:16 DC 12/22/18 19:33 60 MG Orphenadrine Citrate 60 mg ONCE ONCE IM 12/22/18 19:15 12/22/18 19:16 DC 12/22/18 19:34 60 MG Tramadol HCl 50 mg ONCE ONCE PO 12/22/18 21:00 12/22/18 21:01 DC 12/22/18 21:06 50 MG Vital Signs/I&O 12/22/18 18:49 Temp 36.2 Pulse 74 Resp 19 B/P (MAP) 137/77 (97) Pulse Ox 98 O2 Delivery Room Air Capillary Refill : Less Than 3 Seconds Blood Pressure Mean: 97 Progress Note : Time: 19:00 Progress Note Patient seen and evaluated. 60 mg of Toradol and 60 mg of Norflex ordered both IM. Will reevaluate patient's pain after administration. 1999 patient reports trace improvement in her pain, she does have IBS but hasn't taken any medication for this. Will get UA. 2039 UA normal, will try Tramadol and Levsin PO. Patient reports mild headache. Temp 98.2 2114 Patient reports headache better, but flank pain still present. No back pain, N/V or diarrhea. 2129 Discharge instructions and return precautions reviewed. Will follow up with PCP if s/s continue or worsen. Departure Impression Primary Impression: Left flank discomfort Disposition: HOME, SELF-CARE Condition: Improved Departure-Patient Inst. Decision time for Depature: 21:30 Referrals: NANNETTE REVELES DO (PCP/Family) Primary Care Physician Patient Instructions: Flank Pain (DC) Add. Discharge Instructions: Take your medication for IBS as needed. Clear liquid diet for the next 4-6 hours, and advance diet as tolerated. Follow-up with your primary care provider if symptoms are not improving or worsen. You may take the tramadol 1 tablet every 6-8 hours as needed for pain. Return to the emergency department for new, urgent health care needs. All discharge instructions reviewed with patient and/or family. Voiced understanding. Copy Copies To 1: NANNETTE REVELES AMY ARNP Dec 22, 2018 19:36
[2018-12-22 20:35] LABS: BACTERIA,URINE TRACE /HPF; BILIRUBIN,URINE NEGATIVE (NEGATIVE); CLARITY,URINE CLEAR; COLOR,URINE YELLOW; GLUCOSE, URINE (UA) NEGATIVE (NEGATIVE); KETONES,URINE NEGATIVE (NEGATIVE); LEUKOCYTE ESTERASE ,URINE 1+ (NEGATIVE); NITRITE,URINE NEGATIVE (NEGATIVE); PH,URINE 8 (5-9); PROTEIN,URINE NEGATIVE (NEGATIVE); WBC,URINE RARE /HPF
[2018-12-22] MEDS ORDERED: HYOSCYAMINE 0.125 MG (LEVSIN) TAB PO ONE (21:00)
[2018-12-22] MEDS ORDERED: RX-TRAMADOL 50 MG (ULTRAM) TAB PPK#4 PO STA (21:31)
[2018-12-22 21:43] VITALS: BP 137/77
== END 2018-12-22 21:44 | disposition home or self-care (01) ==
LOC: EDUNIT# 18:41 → ER 18:42
DX: R10.9 Unspecified abdominal pain (principal); J44.9 Chronic obstructive pulmonary disease, unspecified; I10 Essential (primary) hypertension; E11.40 Type 2 diabetes mellitus with diabetic neuropathy, unspecified; E78.00 Pure hypercholesterolemia, unspecified; G43.909 Migraine, unspecified, not intractable, without status migrainosus; I25.10 Atherosclerotic heart disease of native coronary artery without angina pectoris; F41.9 Anxiety disorder, unspecified; F32.9 Major depressive disorder, single episode, unspecified; K21.9 Gastro-esophageal reflux disease without esophagitis; K58.9 Irritable bowel syndrome, unspecified; M79.7 Fibromyalgia; Z87.442 Personal history of urinary calculi; Z77.22 Contact with and (suspected) exposure to environmental tobacco smoke (acute) (chronic); Z87.440 Personal history of urinary (tract) infections; Z90.49 Acquired absence of other specified parts of digestive tract; Z95.810 Presence of automatic (implantable) cardiac defibrillator; Z90.710 Acquired absence of both cervix and uterus; Z90.89 Acquired absence of other organs; Z79.4 Long term (current) use of insulin; Z88.0 Allergy status to penicillin; Z88.2 Allergy status to sulfonamides; Z88.6 Allergy status to analgesic agent; Z88.8 Allergy status to other drugs, medicaments and biological substances; Z79.01 Long term (current) use of anticoagulants; Z82.49 Family history of ischemic heart disease and other diseases of the circulatory system
CPT/HCPCS: 81000; 99284

== ENCOUNTER → 2018-12-24 | Outpatient (CLI) | payer MEDICARE ==
--- NOTE | 2018-12-24 17:36 | Diagnostic Imaging Report ---
EXAMINATION: CT abdomen and pelvis without contrast from 12/24/2018. TECHNIQUE: Multiple contiguous axial images were obtained through the abdomen and pelvis without the use of intravenous contrast. Auto Exposure Controls were utilized during the CT exam to meet ALARA standards for radiation dose reduction. INDICATION: Left-sided pain since Saturday. Fevers. Prior history of hysterectomy. COMPARISONS: 01/18/2017. FINDINGS: There is no nephrolithiasis or hydronephrosis on left. No ureteral stones appreciated. Within the right kidney, nonobstructive stone is noted. This is stable from prior. No hydronephrosis appreciated. There is mild fat stranding about both kidneys, nonspecific and possibly chronic although polynephritis is possible, correlate with symptoms. Urinary bladder is poorly evaluated due to underdistention. No free fluid or air is seen in the abdomen nor the pelvis. There is diffuse diverticulosis without evidence for acute diverticulitis. No focal inflammation seen about the right lower quadrant and appendix is not definitely seen. There is diffuse atrophy of the pancreatic head. No surrounding inflammation. The spleen and liver are limited due to lack of contrast without acute abnormality appreciated. There is evidence of previous cholecystectomy. Adrenal glands are unremarkable. Visualized lung bases are unremarkable. No acute osseous abnormalities noted. Evidence of previous kyphoplasty is seen in the lower thoracic spine. IMPRESSION: 1. Minimal fat stranding about both kidneys, possibly chronic versus polynephritis, correlate with symptoms and urinalysis. No obstructive stones or hydronephrosis seen at this time with nonobstructive right nephrolithiasis. 2. Multiple other incidental findings in the abdomen and pelvis as above without an acute abnormality appreciated. Dictated by: Dictated on workstation # [id number]
[2018-12-24 17:47] LABS: ALANINE AMINOTRANSFERASE 23 U/L (0-55); ALBUMIN 3.8 GM/DL (3.2-4.5); ALKALINE PHOSPHATASE 122 U/L (40-136); BILIRUBIN,TOTAL 0.2 MG/DL (0.1-1.0); BUN/CREATININE RATIO 18; CALCIUM 9.2 MG/DL (8.5-10.1); CARBON DIOXIDE 27 MMOL/L (21-32); CHLORIDE 104 MMOL/L (98-107); CREATININE SERUM 0.84 MG/DL (0.60-1.30); GFR ESTIMATED > 60; GLUCOSE 207 MG/DL (70-105); POTASSIUM 4.2 MMOL/L (3.6-5.0); SODIUM 140 MMOL/L (135-145); TOTAL PROTEIN 6.5 GM/DL (6.4-8.2)
== END ==
LOC: RAD 17:01
PROVIDERS: ATTEND Family Medicine
DX: R10.32 Left lower quadrant pain (principal); R50.9 Fever, unspecified; Z90.710 Acquired absence of both cervix and uterus
CPT/HCPCS: 36415; 74176; 80053

== ENCOUNTER 2018-12-25 08:37 | Emergency (ER) | payer MEDICARE ==
[~2018-12-25] VITALS: Ht 157 cm; Wt 110.0 kg
[2018-12-25] MEDS ORDERED: NS IV 500 ML 500 ML IV ONE (08:53)
--- NOTE | 2018-12-25 08:57 | ED Respiratory ---
General Stated Complaint: SOA;FEVER Source: patient Exam Limitations: no limitations History of Present Illness Date Seen by Provider: Dec 25, 2018 Time Seen by Provider: 08:43 Initial Comments Patient with a history of COPD presents to ER with shortness of air cough and a fever 104 this morning. She has been admitted to the doctor's office yesterday because he had a cold and she received a flu shot. She took Tylenol at 1:00 in the morning. Her cough but nonproductive. She's not feeling any wheezing. She did not take a breathing treatment this morning. She's not having any nausea chest pain diarrhea or constipation. She uses baseline 2-1/2-3 L of oxygen. Allergies and Home Medications Allergies Coded Allergies: Penicillins (Unverified Allergy, Severe, Pt has received Cefepime & Ceftriaxone in the past w/o issue, 07/21/18) SWELLING, RASH, ITCHING Sulfa (Sulfonamide Antibiotics) (Verified Allergy, Mild, 07/21/18) RASH aspirin (Verified Adverse Reaction, Mild, ASPIRIN SENSITIVE, 07/21/18) UPSET STOMACH sumatriptan (Verified Adverse Reaction, Mild, PALPITATIONS, 07/21/18) IRRITABLE Home Medications Acetaminophen 650 Mg Tablet.er, 650 MG PO Q4H Prescribed by: NANNETTE REVELES on 05/01/18 104 Apixaban 5 Mg Tablet, 5 MG PO Q12H Prescribed by: YASMANI HAMILTON on 05/01/18 09 Buspirone HCl 5 Mg Tablet, 5 MG PO TID, (Reported) Diltiazem HCl 240 Mg Cap.er.24h, 240 MG PO DAILY Prescribed by: YASMANI HAMILTON on 05/01/18 09 Doxepin HCl 10 Mg Capsule, 20 MG PO HS Prescribed by: NANNETTE REVELES on 05/13/18 1711 Hydrocodone Bit/Acetaminophen 1 Tab Tab, 1 TAB PO Q4H PRN for PAIN-MODERATE Prescribed by: NANNETTE REVELES on 05/01/18 1041 Insulin Determir 1,000 Units/10 Ml Soln, 50 UNIT SQ DAILY Prescribed by: NANNETTE REVELES on 05/01/18 1041 Ipratropium/Albuterol Sulfate 3 Ml Ampul.neb, 3 ML NEB Q6H PRN for SHORTNESS OF BREATH, (Reported) Levofloxacin 750 Mg Tablet, 750 MG PO DAILY Prescribed by: BRADY BROWN on 05/22/182035 Lorazepam 0.5 Mg Tablet, 0.5 MG PO TID PRN for ANXIETY Prescribed by: NANNETTE REVELES on 05/01/18 1041 Magnesium Oxide 400 Mg Tablet, 400 MG PO BIDPC Prescribed by: YASMANI HAMILTON on 05/01/18 0906 Melatonin 3 Mg Tablet, 6 MG PO HS Prescribed by: NANNETTE REVELES on 05/01/18 1041 Metformin HCl 500 Mg Tab.er.24h, 1,000 MG PO BID TAKE 2 (500MG) TABS Prescribed by: NANNETTE REVELES on 05/01/18 1041 Metoprolol Tartrate 100 Mg Tablet, 100 MG PO BID, (Reported) Miconazole Nitrate 90 Gm Powder, 0 GM TOP BID to groin twice a day for 2 weeks Prescribed by: NANNETTE REVELES on 05/13/18 1709 Omeprazole 40 Mg Capsule.dr, 40 MG PO BID, (Reported) Ondansetron 4 Mg Tab.rapdis, 4 MG PO Q6H PRN for NAUSEA/VOMITING Prescribed by: ISRAEL ODELL on 12/25/18 1247 Pramipexole Di-HCl 1 Mg Tablet, 1 MG PO 1700, (Reported) Sennosides 8.6 Mg Tablet, 8.6 MG PO BID Prescribed by: NANNETTE REVELES on 05/01/18 104 Patient Home Medication List Home Medication List Reviewed: Yes Review of Systems Review of Systems Constitutional: chills; No diaphoresis; fever, malaise EENTM: No ear discharge, No ear pain Respiratory: cough, short of breath; No wheezing Cardiovascular: No chest pain, No edema, No Hx of Intervention Gastrointestinal: No abdominal pain, No constipation, No diarrhea Genitourinary: No discharge, No dysuria : No Musculoskeletal: No back pain, No joint pain Skin: No pruritus, No rash Past Kdbodbg-Eslfja-Zjkzxe Hx Patient Social History Alcohol Use: Denies Use Recreational Drug Use: No Smoking Status: Never a Smoker 2nd Hand Smoke Exposure: Yes Recent Hopitalizations: No (Apr 2018 sepsis/Pneumonia ) Immunizations Up To Date Tetanus Booster (TDap): Unknown PED Vaccines UTD: No Date of Pneumonia Vaccine: Dec 02, 2017 Date of Influenza Vaccine: Jan 24, 2018 Seasonal Allergies Seasonal Allergies: Yes Past Medical History Surgeries: Yes (LAP NISSIEN recent back/ neckk / vertabrae surgery, aicd) Abdominal, Appendectomy, Cardiac, Defibrillator, Eye Surgery, Gallbladder, Hysterectomy, Oophorectomy, Orthopedic, Pacemaker, Tonsillectomy Respiratory: Yes Asthma, Pneumonia, Chronic Bronchitis, COPD Currently Using CPAP: No Currently Using BIPAP: No Cardiac: Yes Coronary Artery Disease, High Cholesterol, Hypertension, Irregular Heartbeat Neurological: Yes Headaches /Migraines, Neuropathy 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 Disorders: No Female 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 Disorders: Denies 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 Sexually Transmitted Disease: No Genitourinary: Yes Kidney Infection, Bladder Infection, Kidney Stones, UTI-Chronic Gastrointestinal: Yes (S/P CORNELIUS FUNDOPLICATION; ESOPHAGEAL STRICTURES/DILATIONS; DYSPHAGIA) Gastroesophageal Reflux, Diverticulosis, Hemorrhoids, Polyps, C-Diff, Hiatal Hernia, Ulcer, Irritable Bowel Musculoskeletal: Yes Degenerate Disk Disease, Arthritis, Fibromyalgia, Chronic Back Pain, Fractures Endocrine: Yes Diabetes, Insulin dep, Diabetes, Non-Insulin dep HEENT: Yes Cataract Loss of Vision: Denies Hearing Impairment: Denies Cancer: No Psychosocial: Yes Anxiety, Depression Integumentary: Yes Pruritis Blood Disorders: No Adverse Reaction/Blood Tranf: No Family Medical History Alzheimer's disease 19 FATHER Cardiovascular disease 19 FATHER 19 MOTHER Completed stroke 19 MOTHER Hypertension 19 FATHER 19 MOTHER Myocardial infarction 19 FATHER 19 MOTHER No Family History of: Diabetes mellitus Physical Exam Vital Signs - First Documented 12/25/18 12/25/18 09:12 10:24 Temp 36.8 Pulse 114 Resp 20 B/P (MAP) 140/81 (100) Pulse Ox 98 O2 Delivery Nasal Cannula O2 Flow Rate 1.00 Capillary Refill : Height: 5'4.00" Weight: 215lbs. 0oz. 97.344821au; 39.00 BMI Method:Stated General Appearance: WD/WN, mild distress Eyes: Bilateral Eye Normal Inspection, Bilateral Eye PERRL, Bilateral Eye EOMI HEENT: PERRL/EOMI, pharynx normal Neck: non-tender, full range of motion, normal inspection Respiratory: chest non-tender, lungs clear, normal breath sounds, no respiratory distress, no accessory muscle use Cardiovascular: normal peripheral pulses, regular rate, rhythm, tachycardia Gastrointestinal: normal bowel sounds, non tender, soft Neurologic/Psychiatric: alert, normal mood/affect, oriented x 3 Skin: normal color, warm/dry Procedures/Interventions Date of ETT Placement: Apr 21, 2018 Time of ETT Placement: 1744 Progress/Results/Core Measures Suspected Sepsis SIRS Temperature: Pulse: Respiratory Rate: Laboratory Tests 12/25/18 08:55: White Blood Count 11.4H Blood Pressure / Mean: Laboratory Tests 12/25/18 08:55: Creatinine 0.86, Platelet Count 288, Total Bilirubin 0.5 Results/Orders Lab Results Laboratory Tests Test 12/25/18 08:55 12/25/18 09:10 Range/Units White Blood Count 11.4 H 4.3-11.0 10^3/uL Red Blood Count 4.43 4.35-5.85 10^6/uL Hemoglobin 13.0 11.5-16.0 G/DL Hematocrit 40 35-52 % Mean Corpuscular Volume 89 80-99 FL Mean Corpuscular Hemoglobin 29 25-34 PG Mean Corpuscular Hemoglobin Concent 33 32-36 G/DL Red Cell Distribution Width 13.5 10.0-14.5 % Platelet Count 288 130-400 10^3/uL Mean Platelet Volume 10.4 7.4-10.4 FL Neutrophils (%) (Auto) 77 H 42-75 % Lymphocytes (%) (Auto) 18 12-44 % Monocytes (%) (Auto) 3 0-12 % Eosinophils (%) (Auto) 2 0-10 % Basophils (%) (Auto) 0 0-10 % Neutrophils # (Auto) 8.7 H 1.8-7.8 X 10^3 Lymphocytes # (Auto) 2.1 1.0-4.0 X 10^3 Monocytes # (Auto) 0.4 0.0-1.0 X 10^3 Eosinophils # (Auto) 0.2 0.0-0.3 10^3/uL Basophils # (Auto) 0.0 0.0-0.1 10^3/uL Sodium Level 139 135-145 MMOL/L Potassium Level 4.2 3.6-5.0 MMOL/L Chloride Level 101 98-107 MMOL/L Carbon Dioxide Level 23 21-32 MMOL/L Anion Gap 15 H 5-14 MMOL/L Blood Urea Nitrogen 12 7-18 MG/DL Creatinine 0.86 0.60-1.30 MG/DL Estimat Glomerular Filtration Rate > 60 BUN/Creatinine Ratio 14 Glucose Level 178 H 70-105 MG/DL Calcium Level 9.3 8.5-10.1 MG/DL Corrected Calcium 9.5 8.5-10.1 MG/DL Total Bilirubin 0.5 0.1-1.0 MG/DL Aspartate Amino Transf (AST/SGOT) 22 5-34 U/L Alanine Aminotransferase (ALT/SGPT) 20 0-55 U/L Alkaline Phosphatase 99 40-136 U/L C-Reactive Protein High Sensitivity 2.25 H 0.00-0.50 MG/DL Total Protein 7.0 6.4-8.2 GM/DL Albumin 3.8 3.2-4.5 GM/DL Monoscreen NEGATIVE NEGATIVE Group A Streptococcus Screen NEGATIVE NEGATIVE Blood Gas Puncture Site LR Blood Gas Patient Temperature 36 Arterial Blood pH 7.46 H 7.37-7.43 Arterial Blood Partial Pressure CO2 39 35-45 MMHG Arterial Blood Partial Pressure O2 112 H 79-93 MMHG Arterial Blood HCO3 27 23-27 MMOL/L Arterial Blood Total CO2 28.5 21.0-31.0 MMOL/L Arterial Blood Oxygen Saturation 99 94-100 % Arterial Blood Base Excess 3.3 H -2.5-2.5 MMOL/L Manjit Test YES-POS Blood Gas Ventilator Setting NO Blood Gas Inspired Oxygen 1 Micro Results Microbiology 12/25/18 Influenza Types A,B Antigen (YOLIE) - Final, Complete My Orders Orders - ISRAEL ODELL Ed Iv/Invasive Line Start (12/25/18 08:53) Ns Iv 500 Ml (Sodium Chloride 0.9%) (12/25/18 08:53) Acetaminophen Tablet (Tylenol Tablet) (12/25/18 09:00) Rapid Strep A Screen (12/25/18 08:53) Influenza A And B Antigens (12/25/18 08:53) Monotest (12/25/18 08:53) Cbc With Automated Diff (12/25/18 08:53) Comprehensive Metabolic Panel (12/25/18 08:53) Hs C Reactive Protein (12/25/18 08:53) Chest Pa/Lat (2 View) (12/25/18 08:53) Albuterol/Ipra Inhalation Soln (Duoneb I (12/25/18 09:00) Svn Small Volume Nebulizer (12/25/18 08:53) Arterial Blood Gas (12/25/18 09:05) Arterial Blood Draw (12/25/18 09:10) Ondansetron Injection (Zofran Injectio (12/25/18 12:45) Medications Given in ED Current Medications Medications Dose Ordered Sig/Alannah Route Start Time Stop Time Status Last Admin Dose Admin Acetaminophen 1,000 mg ONCE ONCE PO 12/25/18 09:00 12/25/18 09:01 DC 12/25/18 09:07 1,000 MG Albuterol/ Ipratropium 3 ml ONCE ONCE INH 12/25/18 09:00 12/25/18 09:01 DC 12/25/18 09:12 3 ML Ondansetron HCl 4 mg ONCE ONCE IVP 12/25/18 12:45 12/25/18 12:46 DC 12/25/18 13:01 4 MG Sodium Chloride 500 ml @ 0 mls/hr Q0M ONCE IV 12/25/18 08:53 12/25/18 08:56 DC 12/25/18 09:06 500 MLS/HR Vital Signs/I&O 12/25/18 12/25/18 12/25/18 09:12 10:24 13:05 Temp 36.8 36.8 Pulse 114 72 Resp 20 20 B/P (MAP) 140/81 (100) 140/81 (100) Pulse Ox 98 99 99 O2 Delivery Nasal Cannula Nasal Cannula O2 Flow Rate 1.00 1.00 Capillary Refill : Progress Note : Time: 11:06 Progress Note Chest x-ray labs unremarkable. Influenza pending. Aseptic vital after fluid bolus. Likely viral. Diagnostic Imaging Diagonstic Imaging: Xray Plain Films/CT/US/NM/MRI: chest Comments [facility], [place] NAME: BRAYDON ARBOLEDA Felicita [facility] REC#: [id number] PT STATUS: REG ER : 1945 PHYSICIAN: ISRAEL ODELL MD ADMIT DATE: 12/25/18/ER Draft Date of Exam:12/25/18 CHEST PA/LAT (2 VIEW) INDICATION: Shortness of air and fever. Time of exam 9:39 AM Correlation is made with prior chest from 11/09/2018. The heart size is stable. Cardiac defibrillator remains in place. No infiltrates or failure is seen. There is no effusion or pneumothorax. Postoperative changes lower cervical spine are noted. Kyphoplasty changes lower thoracic spine are noted. IMPRESSION: No acute cardiopulmonary process is detected. Dictated on workstation # [id number] Dict: 12/25/18 0954 Trans: 12/25/18 1004 [facility] [id number] Interpreted by: MARIA T BARNETT MD Electronically signed by: Reviewed: Reviewed by Me Departure Impression Primary Impression: Viral upper respiratory tract infection with cough Additional Impression: COPD (chronic obstructive pulmonary disease) Qualified Codes: J44.9 - Chronic obstructive pulmonary disease, unspecified Disposition: 01 HOME, SELF-CARE Condition: Stable Departure-Patient Inst. Decision time for Depature: 12:45 Referrals: NANNETTE REVELES DO (PCP/Family) Primary Care Physician Patient Instructions: Viral Upper Respiratory Infection, Adult (DC) Add. Discharge Instructions: Drink plenty of fluids. Use Vicks vapor rub, Mentholatum, humidifiers, hot tea with honey. Drink plenty fluids, comfort foods. Tylenol 1000 mg every 8 hours as needed for misery or fever. Ibuprofen 800 mg every 8 hours as needed for fever or pain. Follow-up next week with primary care if not seeing improvement. Zofran 1 tablet every 6 hours under the tongue as needed for nausea. Scripts Ondansetron (Ondansetron Odt) 4 Mg Tab.rapdis 4 MG PO Q6H PRN for NAUSEA/VOMITING, #8 TAB 0 Refills Prov: ISRAEL ODELL 12/25/18 ISRAEL ODELL Dec 25, 2018 08:57
[2018-12-25] MEDS ORDERED: RT-ALBUTEROL/IPRATROPIUM 3 ML (DUONEB) VIAL INH ONE (09:00)
[2018-12-25] MEDS ORDERED: ACETAMINOPHEN 500 MG TAB (TYLENOL) PO ONE (09:00)
[2018-12-25 09:08] LABS: BASOPHILS % (AUTO) 0 % (0-10); EOSINOPHILS # (AUTO) 0.2 10^3/uL (0.0-0.3); EOSINOPHILS % (AUTO) 2 % (0-10); HEMATOCRIT 40 % (35-52); LYMPHOCYTES # (AUTO) 2.1 X 10^3 (1.0-4.0); LYMPHOCYTES % (AUTO) 18 % (12-44); MEAN CORPUSCULAR HEMOGLOBIN 29 PG (25-34); MEAN CORPUSCULAR HGB CONC 33 G/DL (32-36); MEAN CORPUSCULAR VOLUME 89 FL (80-99); MEAN PLATELET VOLUME 10.4 FL (7.4-10.4); MONOCYTES # (AUTO) 0.4 X 10^3 (0.0-1.0); MONOCYTES % (AUTO) 3 % (0-12); NEUTROPHILS # (AUTO) 8.7 X 10^3 (1.8-7.8); NEUTROPHILS % (AUTO) 77 % (42-75); PLATELET COUNT 288 10^3/uL (130-400); RED CELL DISTRIBUTION WIDTH 13.5 % (10.0-14.5); WHITE BLOOD COUNT 11.4 10^3/uL (4.3-11.0)
[2018-12-25 09:17] LABS: ABG BASE EXCESS 3.3 MMOL/L (-2.5-2.5); ABG OXYGEN SATURATION 99 % (94-100); ABG PCO2 39 MMHG (35-45); ABG PH 7.46 (7.37-7.43); ABG PO2 112 MMHG (79-93); ABG TCO2 28.5 MMOL/L (21.0-31.0)
[2018-12-25 09:18] LABS: ALLENS TEST YES-POS; INSPIRED O2 1; PATIENT TEMP 36; VENTILATOR NO
[2018-12-25 09:26] LABS: ALANINE AMINOTRANSFERASE 20 U/L (0-55); ALBUMIN 3.8 GM/DL (3.2-4.5); ALKALINE PHOSPHATASE 99 U/L (40-136); BILIRUBIN,TOTAL 0.5 MG/DL (0.1-1.0); BUN/CREATININE RATIO 14; CALCIUM 9.3 MG/DL (8.5-10.1); CARBON DIOXIDE 23 MMOL/L (21-32); CHLORIDE 101 MMOL/L (98-107); CREATININE SERUM 0.86 MG/DL (0.60-1.30); GFR ESTIMATED > 60; GLUCOSE 178 MG/DL (70-105); POTASSIUM 4.2 MMOL/L (3.6-5.0); SODIUM 139 MMOL/L (135-145)
--- NOTE | 2018-12-25 10:04 | Diagnostic Imaging Report ---
INDICATION: Shortness of air and fever. Time of exam 9:39 AM Correlation is made with prior chest from 11/09/2018. The heart size is stable. Cardiac defibrillator remains in place. No infiltrates or failure is seen. There is no effusion or pneumothorax. Postoperative changes lower cervical spine are noted. Kyphoplasty changes lower thoracic spine are noted. IMPRESSION: No acute cardiopulmonary process is detected. Dictated by: Dictated on workstation # [id number]
[2018-12-25] MEDS ORDERED: ONDANSETRON 4 MG/2 ML (SDV) Z0FRAN IVP ONE (12:45)
[2018-12-25] MEDS ORDERED: ONDA4TAB11 PO (12:47)
[2018-12-25 13:05] VITALS: BP 140/81
== END 2018-12-25 13:15 | disposition home or self-care (01) ==
LOC: EDUNIT# 08:37 → ER 08:38
DX: J06.9 Acute upper respiratory infection, unspecified (principal); J44.9 Chronic obstructive pulmonary disease, unspecified; I10 Essential (primary) hypertension; E11.40 Type 2 diabetes mellitus with diabetic neuropathy, unspecified; F41.9 Anxiety disorder, unspecified; F32.9 Major depressive disorder, single episode, unspecified; I25.10 Atherosclerotic heart disease of native coronary artery without angina pectoris; E78.00 Pure hypercholesterolemia, unspecified; G43.909 Migraine, unspecified, not intractable, without status migrainosus; K21.9 Gastro-esophageal reflux disease without esophagitis; K58.9 Irritable bowel syndrome, unspecified; M79.7 Fibromyalgia; Z87.440 Personal history of urinary (tract) infections; Z87.442 Personal history of urinary calculi; Z90.49 Acquired absence of other specified parts of digestive tract; Z90.710 Acquired absence of both cervix and uterus; Z95.810 Presence of automatic (implantable) cardiac defibrillator; Z90.89 Acquired absence of other organs; Z79.01 Long term (current) use of anticoagulants; Z79.4 Long term (current) use of insulin; Z77.22 Contact with and (suspected) exposure to environmental tobacco smoke (acute) (chronic); Z88.0 Allergy status to penicillin; Z88.2 Allergy status to sulfonamides; Z88.6 Allergy status to analgesic agent; Z88.8 Allergy status to other drugs, medicaments and biological substances; Z82.49 Family history of ischemic heart disease and other diseases of the circulatory system
CPT/HCPCS: 36415; 36600; 71046; 80053; 82805; 85025; 86141; 86308; 87430; 87804; 94640; 96374

== ENCOUNTER 2019-01-18 01:35 | Emergency (ER) | payer MEDICARE ==
[2019-01-18] MEDS ORDERED: KETOROLAC 30 MG/ML VIAL IVP ONE (02:45)
[2019-01-18] MEDS ORDERED: GABAPENTIN 300 MG (NEURONTIN) CAP PO ONE (02:45)
[2019-01-18 02:53] LABS: BASOPHILS % (AUTO) 0 % (0-10); EOSINOPHILS # (AUTO) 0.3 10^3/uL (0.0-0.3); EOSINOPHILS % (AUTO) 3 % (0-10); HEMATOCRIT 40 % (35-52); HEMOGLOBIN 12.8 G/DL (11.5-16.0); LYMPHOCYTES % (AUTO) 22 % (12-44); MEAN CORPUSCULAR HEMOGLOBIN 29 PG (25-34); MEAN CORPUSCULAR HGB CONC 32 G/DL (32-36); MEAN CORPUSCULAR VOLUME 90 FL (80-99); MEAN PLATELET VOLUME 9.6 FL (7.4-10.4); MONOCYTES # (AUTO) 0.4 X 10^3 (0.0-1.0); MONOCYTES % (AUTO) 5 % (0-12); NEUTROPHILS # (AUTO) 6.4 X 10^3 (1.8-7.8); NEUTROPHILS % (AUTO) 70 % (42-75); PLATELET COUNT 243 10^3/uL (130-400); RED CELL DISTRIBUTION WIDTH 13.1 % (10.0-14.5); WHITE BLOOD COUNT 9.1 10^3/uL (4.3-11.0)
[2019-01-18 03:05] LABS: INR 0.9 (0.8-1.4); PROTHROMBIN TIME PATIENT 12.6 SEC (12.2-14.7)
[2019-01-18 03:14] LABS: ALANINE AMINOTRANSFERASE 20 U/L (0-55); ALBUMIN 3.9 GM/DL (3.2-4.5); ALKALINE PHOSPHATASE 102 U/L (40-136); BILIRUBIN,TOTAL 0.4 MG/DL (0.1-1.0); BUN/CREATININE RATIO 13; CALCIUM 9.4 MG/DL (8.5-10.1); CARBON DIOXIDE 23 MMOL/L (21-32); CHLORIDE 103 MMOL/L (98-107); CREATININE SERUM 0.96 MG/DL (0.60-1.30); GFR ESTIMATED 57; GLUCOSE 184 MG/DL (70-105); MAGNESIUM 1.6 MG/DL (1.6-2.4); POTASSIUM 3.7 MMOL/L (3.6-5.0); SODIUM 140 MMOL/L (135-145); TOTAL PROTEIN 6.8 GM/DL (6.4-8.2)
--- NOTE | 2019-01-18 05:40 | Diagnostic Imaging Report ---
INDICATION: Right shoulder pain. COMPARISON: 12/25/2018 FINDINGS: Single frontal view of the chest demonstrates normal heart size and pulmonary vascularity. The lungs are well aerated and clear. No large pleural effusion or pneumothorax is seen. The visualized osseous structures show no acute abnormalities. Left-sided AICD is noted. IMPRESSION: 1. No acute cardiopulmonary process. Dictated by: Dictated on workstation # [id number]
--- NOTE | 2019-01-18 05:55 | ED Chest Pain ---
General Chief Complaint: Cardiac/General Problems Stated Complaint: PAIN IN SHOULDER AND GROIN Source: patient, old records Exam Limitations: no limitations History of Present Illness Date Seen by Provider: Jan 18, 2019 Time Seen by Provider: 02:00 Initial Comments This 73-year-old woman presents to the emergency room with complaints of pain in the left lower neck and upper chest. These pains have been intermittent and about 30 seconds and pulses. They seem to be somewhat positional. She holds her left arm across her chest to reduce the pain. She also has some lower abdominal pain which is currently under workup and she has a pending urology referral for further evaluation of that pain. Her primary care providers Dr. REVELES. Dr. Cerda is her gi physician. She had cardiac angiography showing no obstructive disease in 2010. She had a negative stress test a year ago. She has had chronic problems with neck pain but states this pain seems a little different. She had neck surgery within the last year. Allergies and Home Medications Allergies Coded Allergies: Penicillins (Unverified Allergy, Severe, Pt has received Cefepime & Ceftriaxone in the past w/o issue, 07/21/18) SWELLING, RASH, ITCHING Sulfa (Sulfonamide Antibiotics) (Verified Allergy, Mild, 07/21/18) RASH aspirin (Verified Adverse Reaction, Mild, ASPIRIN SENSITIVE, 07/21/18) UPSET STOMACH sumatriptan (Verified Adverse Reaction, Mild, PALPITATIONS, 07/21/18) IRRITABLE Home Medications Acetaminophen 650 Mg Tablet.er, 650 MG PO Q4H Prescribed by: NANNETTE REVELES on 05/01/18 1042 Apixaban 5 Mg Tablet, 5 MG PO Q12H Prescribed by: YASMANI HAMILTON on 05/01/18 0906 Buspirone HCl 5 Mg Tablet, 5 MG PO TID, (Reported) Diltiazem HCl 240 Mg Cap.er.24h, 240 MG PO DAILY Prescribed by: YASMANI HAMILTON on 05/01/18 0906 Doxepin HCl 10 Mg Capsule, 20 MG PO HS Prescribed by: NANNETTE REVELES on 05/13/18 1711 Hydrocodone Bit/Acetaminophen 1 Tab Tab, 1 TAB PO Q4H PRN for PAIN-MODERATE Prescribed by: NANNETTE REVELES on 05/01/18 1041 Insulin Determir 1,000 Units/10 Ml Soln, 50 UNIT SQ DAILY Prescribed by: NANNETTE REVELES on 05/01/18 104 Ipratropium/Albuterol Sulfate 3 Ml Ampul.neb, 3 ML NEB Q6H PRN for SHORTNESS OF BREATH, (Reported) Levofloxacin 750 Mg Tablet, 750 MG PO DAILY Prescribed by: BRADY BROWN on 05/22/182035 Lorazepam 0.5 Mg Tablet, 0.5 MG PO TID PRN for ANXIETY Prescribed by: NANNETTE REVELES on 05/01/18 104 Magnesium Oxide 400 Mg Tablet, 400 MG PO BIDPC Prescribed by: YASMANI HAMILTON on 05/01/18 0906 Melatonin 3 Mg Tablet, 6 MG PO HS Prescribed by: NANNETTE REVELES on 05/01/18 104 Metformin HCl 500 Mg Tab.er.24h, 1,000 MG PO BID TAKE 2 (500MG) TABS Prescribed by: NANNETTE REVELES on 05/01/18 104 Metoprolol Tartrate 100 Mg Tablet, 100 MG PO BID, (Reported) Miconazole Nitrate 90 Gm Powder, 0 GM TOP BID to groin twice a day for 2 weeks Prescribed by: NANNETTE REVELES on 05/13/18 1709 Omeprazole 40 Mg Capsule.dr, 40 MG PO BID, (Reported) Ondansetron 4 Mg Tab.rapdis, 4 MG PO Q6H PRN for NAUSEA/VOMITING Prescribed by: ISRAEL ODELL on 12/25/18 1247 Pramipexole Di-HCl 1 Mg Tablet, 1 MG PO 1700, (Reported) Sennosides 8.6 Mg Tablet, 8.6 MG PO BID Prescribed by: NANNETTE REVELES on 05/01/18 104 Patient Home Medication List Home Medication List Reviewed: Yes Review of Systems Review of Systems Constitutional: no symptoms reported EENTM: No Symptoms Reported Respiratory: No Symptoms Reported Cardiovascular: See HPI Gastrointestinal: No Symptoms Reported Genitourinary: No Symptoms Reported Musculoskeletal: see HPI Skin: no symptoms reported Psychiatric/Neurological: See HPI Endocrine: No Symptoms Reported Hematologic/Lymphatic: No Symptoms Reported Past Azecgpf-Ltihzx-Uwcmfb Hx Past Med/Social Hx: Reviewed Nursing Past Med/Soc Hx Patient Social History Alcohol Use: Denies Use Recreational Drug Use: No Smoking Status: Never a Smoker 2nd Hand Smoke Exposure: Yes Recent Foreign Travel: No Contact w/Someone Who Travel: No Recent Hopitalizations: No (Apr 2018 sepsis/Pneumonia ) Immunizations Up To Date Tetanus Booster (TDap): Unknown PED Vaccines UTD: No Date of Pneumonia Vaccine: Dec 02, 2017 Date of Influenza Vaccine: Jan 24, 2018 Seasonal Allergies Seasonal Allergies: Yes Past Medical History Surgeries: Yes (LAP NISSIEN recent back/ neckk / vertabrae surgery, aicd) Abdominal, Appendectomy, Cardiac, Defibrillator, Eye Surgery, Gallbladder, Hysterectomy, Oophorectomy, Orthopedic, Pacemaker, Tonsillectomy Respiratory: Yes Asthma, Pneumonia, Chronic Bronchitis, COPD Currently Using CPAP: No Currently Using BIPAP: No Cardiac: Yes Coronary Artery Disease, High Cholesterol, Hypertension, Irregular Heartbeat Neurological: Yes Headaches /Migraines, Neuropathy 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 Disorders: No Female 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 Disorders: 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 Sexually Transmitted Disease: No Genitourinary: Yes Kidney Infection, Bladder Infection, Kidney Stones, UTI-Chronic Gastrointestinal: Yes (S/P CORNELIUS FUNDOPLICATION; ESOPHAGEAL STRICTURES/DILATIONS; DYSPHAGIA) Gastroesophageal Reflux, Diverticulosis, Hemorrhoids, Polyps, C-Diff, Hiatal Hernia, Ulcer, Irritable Bowel Musculoskeletal: Yes Degenerate Disk Disease, Arthritis, Fibromyalgia, Chronic Back Pain, Fractures Endocrine: Yes Diabetes, Insulin dep, Diabetes, Non-Insulin dep HEENT: Yes Cataract Loss of Vision: Denies Hearing Impairment: Denies Cancer: No Psychosocial: Yes Anxiety, Depression Integumentary: Yes Pruritis Blood Disorders: No Adverse Reaction/Blood Tranf: No Family Medical History Alzheimer's disease 19 FATHER Cardiovascular disease 19 FATHER 19 MOTHER Completed stroke 19 MOTHER Hypertension 19 FATHER 19 MOTHER Myocardial infarction 19 FATHER 19 MOTHER No Family History of: Diabetes mellitus Physical Exam Vital Signs Vital Signs - First Documented 01/18/19 01/18/19 01:57 06:08 Pulse 92 Resp 14 B/P (MAP) 104/56 Pulse Ox 100 O2 Delivery Room Air Capillary Refill : Less Than 3 Seconds Height, Weight, BMI Height: 5'4.00" Weight: 215lbs. 0oz. 97.793542cf; 44.00 BMI Method:Stated General Appearance: No Apparent Distress, WD/WN HEENT: PERRL/EOMI, Normal ENT Inspection Neck: Normal Inspection, Other (tenderness in the musculature of the left posterior neck and left upper back) Respiratory: Chest Non Tender, Lungs Clear, Normal Breath Sounds, No Accessory Muscle Use, No Respiratory Distress Cardiovascular: Regular Rate, Rhythm, No Edema, Normal Peripheral Pulses Gastrointestinal: Normal Bowel Sounds, Soft, Tenderness (chronic unchanged tenderness in the lower abdomen) Extremity: Normal Inspection, Non Tender, No Pedal Edema Neurologic/Psychiatric: Alert, Oriented x3, No Motor/Sensory Deficits, 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, 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 as Tested Skin: Normal Color, Warm/Dry Procedures/Interventions Date of ETT Placement: Apr 21, 2018 Time of ETT Placement: 1743 Progress/Results/Core Measures Results/Orders Lab Results Laboratory Tests Test 01/18/19 02:39 01/18/19 04:52 Range/Units White Blood Count 9.1 4.3-11.0 10^3/uL Red Blood Count 4.42 4.35-5.85 10^6/uL Hemoglobin 12.8 11.5-16.0 G/DL Hematocrit 40 35-52 % Mean Corpuscular Volume 90 80-99 FL Mean Corpuscular Hemoglobin 29 25-34 PG Mean Corpuscular Hemoglobin Concent 32 32-36 G/DL Red Cell Distribution Width 13.1 10.0-14.5 % Platelet Count 243 130-400 10^3/uL Mean Platelet Volume 9.6 7.4-10.4 FL Neutrophils (%) (Auto) 70 42-75 % Lymphocytes (%) (Auto) 22 12-44 % Monocytes (%) (Auto) 5 0-12 % Eosinophils (%) (Auto) 3 0-10 % Basophils (%) (Auto) 0 0-10 % Neutrophils # (Auto) 6.4 1.8-7.8 X 10^3 Lymphocytes # (Auto) 2.0 1.0-4.0 X 10^3 Monocytes # (Auto) 0.4 0.0-1.0 X 10^3 Eosinophils # (Auto) 0.3 0.0-0.3 10^3/uL Basophils # (Auto) 0.0 0.0-0.1 10^3/uL Prothrombin Time 12.6 12.2-14.7 SEC INR Comment 0.9 0.8-1.4 Activated Partial Thromboplast Time 23 L 24-35 SEC Sodium Level 140 135-145 MMOL/L Potassium Level 3.7 3.6-5.0 MMOL/L Chloride Level 103 98-107 MMOL/L Carbon Dioxide Level 23 21-32 MMOL/L Anion Gap 14 5-14 MMOL/L Blood Urea Nitrogen 12 7-18 MG/DL Creatinine 0.96 0.60-1.30 MG/DL Estimat Glomerular Filtration Rate 57 BUN/Creatinine Ratio 13 Glucose Level 184 H 70-105 MG/DL Calcium Level 9.4 8.5-10.1 MG/DL Corrected Calcium 9.5 8.5-10.1 MG/DL Magnesium Level 1.6 1.6-2.4 MG/DL Total Bilirubin 0.4 0.1-1.0 MG/DL Aspartate Amino Transf (AST/SGOT) 19 5-34 U/L Alanine Aminotransferase (ALT/SGPT) 20 0-55 U/L Alkaline Phosphatase 102 40-136 U/L Myoglobin 51.3 10.0-92.0 NG/ML Troponin I < 0.028 < 0.028 <0.028 NG/ML Total Protein 6.8 6.4-8.2 GM/DL Albumin 3.9 3.2-4.5 GM/DL My Orders Orders - BRADY HOFFMAN MD Cbc With Automated Diff (01/18/19 02:30) Magnesium (01/18/19 02:30) Chest 1 View, Ap/Pa Only (01/18/19 02:30) Ekg Tracing (01/18/19 02:30) Cardiac Profile 1 (01/18/19 02:30) Comprehensive Metabolic Panel (01/18/19 02:30) Myoglobin Serum (01/18/19 02:30) Protime With Inr (01/18/19 02:30) Partial Thromboplastin Time (01/18/19 02:30) O2 (01/18/19 02:30) Monitor-Rhythm Ecg Trace Only (01/18/19 02:30) Ed Iv/Invasive Line Start (01/18/19 02:30) Ketorolac Injection (Toradol Injection) (01/18/19 02:45) Gabapentin Capsule/Tablet (Neurontin Cap (01/18/19 02:45) Troponin I (01/18/19 04:40) Medications Given in ED Current Medications Medications Dose Ordered Sig/Alannah Route Start Time Stop Time Status Last Admin Dose Admin Gabapentin 300 mg ONCE ONCE PO 01/18/19 02:45 01/18/19 02:46 DC 01/18/19 03:15 300 MG Ketorolac Tromethamine 15 mg ONCE ONCE IVP 01/18/19 02:45 01/18/19 02:46 DC 01/18/19 03:15 15 MG Vital Signs/I&O 01/18/19 01/18/19 01:57 06:08 Pulse 92 Resp 14 B/P (MAP) 104/56 Pulse Ox 100 98 O2 Delivery Room Air Room Air Progress Progress Note : Progress Note Patient received Toradol and Neurontin with improvement in her pain. Initial workup and repeat troponin were negative. Initial ECG Impression Date: Jan 18, 2019 Initial ECG Impression Time: 01:57 Initial ECG Rate: 87 Initial ECG Rhythm: Normal Sinus Initial ECG Intervals: Normal Comment Normal sinus rhythm with no ST elevation or depression. Left axis deviation. No abnormal intervals. Diagnostic Imaging Diagonstic Imaging: Xray Plain Films/CT/US/NM/MRI: chest Comments Chest x-ray viewed by me and report reviewed. See report below: NAME[facility] REC#: [id number] PT STATUS: REG ER : 1945 PHYSICIAN: BRADY HOFFMAN MD ADMIT DATE: 01/18/19/ER Draft Date of Exam:01/18/19 CHEST 1 VIEW, AP/PA ONLY INDICATION: Right shoulder pain. COMPARISON: 12/25/2018 FINDINGS: Single frontal view of the chest demonstrates normal heart size and pulmonary vascularity. The lungs are well aerated and clear. No large pleural effusion or pneumothorax is seen. The visualized osseous structures show no acute abnormalities. Left-sided AICD is noted. IMPRESSION: 1. No acute cardiopulmonary process. Dictated on workstation # [id number] Dict: 01/18/19 0537 Trans: 01/18/19 0539 [id number] Interpreted by: ROLDAN QUEEN MD Departure Impression Primary Impression: Atypical chest pain Disposition: 01 HOME, SELF-CARE Condition: Improved Departure-Patient Inst. Decision time for Depature: 05:54 Referrals: NANNETTE REVELES DO (PCP/Family) Primary Care Physician Patient Instructions: Chest Pain (DC) Add. Discharge Instructions: You may continue using your gabapentin, muscle relaxers, and other medications as previously prescribed. Follow-up with Dr. REVELES, Dr. Cerda, and your spine surgeon as soon as possible. Return to the emergency room if you have worsening symptoms. All discharge instructions reviewed with patient and/or family. Voiced understanding. Copy Copies To 1: ULI CERDA MD FACP [facility] CCDS Copies To 2: NANNETTE REVELES JOSHUA T MD Jan 18, 2019 05:55 POS
[2019-01-18 06:08] VITALS: BP 104/56
== END 2019-01-18 06:20 | disposition home or self-care (01) ==
LOC: EDUNIT# 01:35 → ER 01:36
DX: R07.89 Other chest pain (principal); I10 Essential (primary) hypertension; E11.40 Type 2 diabetes mellitus with diabetic neuropathy, unspecified; J44.9 Chronic obstructive pulmonary disease, unspecified; G43.909 Migraine, unspecified, not intractable, without status migrainosus; F41.9 Anxiety disorder, unspecified; F32.9 Major depressive disorder, single episode, unspecified; E78.00 Pure hypercholesterolemia, unspecified; I25.10 Atherosclerotic heart disease of native coronary artery without angina pectoris; K21.9 Gastro-esophageal reflux disease without esophagitis; K58.9 Irritable bowel syndrome, unspecified; M79.7 Fibromyalgia; Z90.49 Acquired absence of other specified parts of digestive tract; Z90.710 Acquired absence of both cervix and uterus; Z87.440 Personal history of urinary (tract) infections; Z87.442 Personal history of urinary calculi; Z95.810 Presence of automatic (implantable) cardiac defibrillator; Z79.01 Long term (current) use of anticoagulants; Z79.4 Long term (current) use of insulin; Z77.22 Contact with and (suspected) exposure to environmental tobacco smoke (acute) (chronic); Z98.890 Other specified postprocedural states; Z88.0 Allergy status to penicillin; Z88.2 Allergy status to sulfonamides; Z88.6 Allergy status to analgesic agent; Z88.8 Allergy status to other drugs, medicaments and biological substances; Z82.49 Family history of ischemic heart disease and other diseases of the circulatory system
CPT/HCPCS: 36415; 71045; 80053; 83735; 83874; 84484; 85025; 85610; 85730; 93005; 93041

== ENCOUNTER 2019-03-05 19:15 | Emergency (ER) | payer MEDICARE ==
[~2019-03-05] VITALS: Ht 63.6 cm; Wt 98.8 kg
[~2019-03-05 19:15] MED LIST changes: -TRAM50TA2; +TRM50T
[2019-03-05] MEDS ORDERED: NS IV 1000 ML 1,000 ML IV SCH (20:26)
[2019-03-05] MEDS ORDERED: PROCHLORPERAZINE 10 MG/2ML INJ (COMPAZINE) IV ONE (20:30)
[2019-03-05] MEDS ORDERED: diphenhydrAMINE 50 MG/ML INJ (BENADRYL) IVP ONE (20:30)
[2019-03-05] MEDS ORDERED: KETOROLAC 30 MG/ML VIAL IVP ONE (20:30)
--- NOTE | 2019-03-05 21:11 | NUR ---
PATIENT RESTING WITH EYES CLOSED AT THIS TIME.
--- NOTE | 2019-03-05 21:37 | ED Headache ---
General Chief Complaint: Head/Cervical Problems Stated Complaint: MIGRAINE Nursing Triage Note: PATIENT STATES HAS CHRONIC HEADACHE. VERBALIZED NOTHING WORKS FOR HER. STATES TAKES HER HTN MEDS. PT VERBALIZED EYE PAIN AND LIGHT SINSITIVITY AND NAUSEA. Nursing Sepsis Screen: No Definite Risk History of Present Illness Date Seen by Provider: Mar 05, 2019 Time Seen by Provider: 20:20 Initial Comments 73-year-old female with chronic history of migraines presents for 3-4 days of symptoms. She reports over the last 10 years she has tried about every medication for migraines with no improvement. She is on metoprolol which seems to help him manage her hypertension. She denies vision changes, she has mild nausea and no vomiting. She last ate at approximately 1900. Timing/Duration: episodic (for the last 3-4 days) Severity/Quality: moderate Location: frontal Prior Headaches/Recent Trauma: chronic headaches Associated Symptoms: denies symptoms; No confusion, No fatigue, No facial pain, No fever/chills, No flushing, No loss of consciousness; nausea/vomiting; No nasal congestion, No nasal drainage, No numbness in legs/feet, No rash, No seizures, No sinus infection, No stiff neck, No vision changes, No weakness, No other Allergies and Home Medications Allergies Coded Allergies: Penicillins (Unverified Allergy, Severe, Pt has received Cefepime & Ceftriaxone in the past w/o issue, 07/21/18) SWELLING, RASH, ITCHING Sulfa (Sulfonamide Antibiotics) (Verified Allergy, Mild, 07/21/18) RASH aspirin (Verified Adverse Reaction, Mild, ASPIRIN SENSITIVE, 07/21/18) UPSET STOMACH sumatriptan (Verified Adverse Reaction, Mild, PALPITATIONS, 07/21/18) IRRITABLE Home Medications Acetaminophen 650 Mg Tablet.er, 650 MG PO Q4H Prescribed by: NANNETTE REID on 05/01/18 1042 Apixaban 5 Mg Tablet, 5 MG PO Q12H Prescribed by: YASMANI HAMILTON on 05/01/18 09 Buspirone HCl 5 Mg Tablet, 5 MG PO TID, (Reported) Diltiazem HCl 240 Mg Cap.er.24h, 240 MG PO DAILY Prescribed by: YASMANI HAMILTON on 05/01/18 09 Doxepin HCl 10 Mg Capsule, 20 MG PO HS Prescribed by: NANNETTE REID on 05/13/18 1711 Hydrocodone Bit/Acetaminophen 1 Tab Tab, 1 TAB PO Q4H PRN for PAIN-MODERATE Prescribed by: NANNETTE REID on 05/01/18 104 Insulin Determir 1,000 Units/10 Ml Soln, 50 UNIT SQ DAILY Prescribed by: NANNETTE REID on 05/01/18 1041 Ipratropium/Albuterol Sulfate 3 Ml Ampul.neb, 3 ML NEB Q6H PRN for SHORTNESS OF BREATH, (Reported) Levofloxacin 750 Mg Tablet, 750 MG PO DAILY Prescribed by: BRADY BROWN on 05/22/182035 Lorazepam 0.5 Mg Tablet, 0.5 MG PO TID PRN for ANXIETY Prescribed by: NANNETTE REID on 05/01/18 104 Magnesium Oxide 400 Mg Tablet, 400 MG PO BIDPC Prescribed by: YASMANI HAMILTON on 05/01/18 0906 Melatonin 3 Mg Tablet, 6 MG PO HS Prescribed by: NANNETTE REID on 05/01/18 104 Metformin HCl 500 Mg Tab.er.24h, 1,000 MG PO BID TAKE 2 (500MG) TABS Prescribed by: NANNETTE REID on 05/01/18 104 Metoprolol Tartrate 100 Mg Tablet, 100 MG PO BID, (Reported) Miconazole Nitrate 90 Gm Powder, 0 GM TOP BID to groin twice a day for 2 weeks Prescribed by: NANNETTE REID on 05/13/18 1709 Omeprazole 40 Mg Capsule.dr, 40 MG PO BID, (Reported) Ondansetron 4 Mg Tab.rapdis, 4 MG PO Q6H PRN for NAUSEA/VOMITING Prescribed by: ISRAEL ODELL on 12/25/18 1247 Pramipexole Di-HCl 1 Mg Tablet, 1 MG PO 1700, (Reported) Sennosides 8.6 Mg Tablet, 8.6 MG PO BID Prescribed by: NANNETTE RIED on 05/01/18 104 Patient Home Medication List Home Medication List Reviewed: Yes Review of Systems Review of Systems Constitutional: no symptoms reported, see HPI Respiratory: no symptoms reported, see HPI Cardiovascular: no symptoms reported, see HPI Gastrointestinal: see HPI; No diarrhea; nausea; No vomiting Musculoskeletal: no symptoms reported, see HPI Psychiatric/Neurological: See HPI, Headache Past Nycfvtw-Zwtuiq-Rxcdfa Hx Past Med/Social Hx: Reviewed Nursing Past Med/Soc Hx Patient Social History Alcohol Use: Denies Use Recreational Drug Use: No Smoking Status: Never a Smoker 2nd Hand Smoke Exposure: Yes Recent Foreign Travel: No Contact w/Someone Who Travel: No Recent Infectious Disease Expo: No Recent Hopitalizations: No (Apr 2018 sepsis/Pneumonia ) Physical Abuse: No Sexual Abuse: No Mistreated: No Immunizations Up To Date Tetanus Booster (TDap): Unknown PED Vaccines UTD: No Date of Pneumonia Vaccine: Dec 02, 2017 Date of Influenza Vaccine: Jan 24, 2018 Seasonal Allergies Seasonal Allergies: Yes Past Medical History Surgeries: Yes (LAP NISSIEN recent back/ neckk / vertabrae surgery, aicd) Abdominal, Appendectomy, Cardiac, Defibrillator, Eye Surgery, Gallbladder, Hysterectomy, Oophorectomy, Orthopedic, Pacemaker, Tonsillectomy Respiratory: Yes Asthma, Pneumonia, Chronic Bronchitis, COPD Currently Using CPAP: No Currently Using BIPAP: No Cardiac: Yes Coronary Artery Disease, High Cholesterol, Hypertension, Irregular Heartbeat Neurological: Yes Headaches /Migraines, Neuropathy 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 Disorders: No Female 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 Sexually Transmitted Disease: No Genitourinary: Yes Kidney Infection, Bladder Infection, Kidney Stones, UTI-Chronic Gastrointestinal: Yes (S/P CORNELIUS FUNDOPLICATION; ESOPHAGEAL STRICTURES/DILATIONS; DYSPHAGIA) Gastroesophageal Reflux, Diverticulosis, Hemorrhoids, Polyps, C-Diff, Hiatal Hernia, Ulcer, Irritable Bowel Musculoskeletal: Yes Degenerate Disk Disease, Arthritis, Fibromyalgia, Chronic Back Pain, Fractures Endocrine: Yes Diabetes, Insulin dep, Diabetes, Non-Insulin dep HEENT: Yes Cataract Loss of Vision: Denies Hearing Impairment: Denies Cancer: No Psychosocial: Yes Anxiety, Depression Integumentary: Yes Pruritis Blood Disorders: No Adverse Reaction/Blood Tranf: No Family Medical History Alzheimer's disease 19 FATHER Cardiovascular disease 19 FATHER 19 MOTHER Completed stroke 19 MOTHER Hypertension 19 FATHER 19 MOTHER Myocardial infarction 19 FATHER 19 MOTHER No Family History of: Diabetes mellitus Physical Exam Vital Signs Vital Signs - First Documented 03/05/19 20:07 Temp 36.7 Pulse 70 Resp 18 B/P (MAP) 149/117 (128) Pulse Ox 95 O2 Delivery Room Air Capillary Refill : Less Than 3 Seconds Height, Weight, BMI Height: 5'4.00" Weight: 215lbs. 0oz. 97.461722vj; 244.00 BMI Method:Stated General Appearance: WD/WN, no apparent distress, other (patient wearing sunglasses) HEENT: PERRL/EOMI, normal ENT inspection, TMs normal, pharynx normal, barry tophobia Neck: non-tender, full range of motion, supple, normal inspection Cardiovascular: normal peripheral pulses, regular rate, rhythm Respiratory: chest non-tender, lungs clear, normal breath sounds Gastrointestinal: normal bowel sounds, non tender, soft Psychiatric: alert, oriented x 3 Crainal Nerves: normal hearing, normal speech, PERRL Coordination/Gait: normal finger to nose, normal gait Motor/Sensory: no motor deficit, no sensory deficit Skin: normal color, warm/dry Procedures/Interventions Date of ETT Placement: Apr 21, 2018 Time of ETT Placement: 1744 Progress/Results/Core Measures Results/Orders My Orders Orders - KELLY WASHBURN Ed Iv/Invasive Line Start (03/05/19 20:26) Ns Iv 1000 Ml (Sodium Chloride 0.9%) (03/05/19 20:26) Prochlorperazine Injection (Compazine In (03/05/19 20:30) Diphenhydramine Injection (Benadryl Inje (03/05/19 20:30) Ketorolac Injection (Toradol Injection) (03/05/19 20:30) Medications Given in ED Current Medications Medications Dose Ordered Sig/Alannah Route Start Time Stop Time Status Last Admin Dose Admin Diphenhydramine HCl 25 mg ONCE ONCE IVP 03/05/19 20:30 03/05/19 20:31 DC 03/05/19 20:44 25 MG Ketorolac Tromethamine 30 mg ONCE ONCE IVP 03/05/19 20:30 03/05/19 20:31 DC 03/05/19 20:45 30 MG Prochlorperazine Edisylate 10 mg ONCE ONCE IV 03/05/19 20:30 03/05/19 20:31 DC 03/05/19 20:43 10 MG Vital Signs/I&O 03/05/19 03/05/19 20:07 21:46 Temp 36.7 36.7 Pulse 70 70 Resp 18 18 B/P (MAP) 149/117 (128) 138/95 (128) Pulse Ox 95 98 O2 Delivery Room Air Room Air Blood Pressure Mean: 128 Progress Progress Note : Time: 20:20 Progress Note Patient seen and evaluated, recommended IV normal saline 1 L, Compazine 10 mg IV, Toradol 30 mg IV and Benadryl 25 mg IV. 2129 patient reports migraine has improved, no further nausea. She has a history of sleep apnea and is to use a CPAP machine but was unable to afford this. She did recently changed insurance and I encouraged that she follow up with her PCP or consider seeing if options are available for through [facility] to obtain this. Blood pressure has improved to 130s over 80s. Discharge instructions and return precautions reviewed with the patient QUESTIONS answered. Departure Impression Primary Impression: Migraine Qualified Codes: G43.019 - Migraine without aura, intractable, without status migrainosus Disposition: HOME, SELF-CARE Condition: Improved Departure-Patient Inst. Decision time for Depature: 21:30 Referrals: EULA ROY DO (PCP) Primary Care Physician Patient Instructions: Migraine Headache (DC) Add. Discharge Instructions: Continue to take her metoprolol twice daily as prescribed. Try to obtain CPAP for sleeping Follow-up with Dr. Reid's office if symptoms are continuing to persist or worsen. Return to emergency department for new, urgent health care concerns. All discharge instructions reviewed with patient and/or family. Voiced understanding. Copy Copies To 1: NANNETTE REID AMY ARNP Mar 05, 2019 21:37
[2019-03-05 21:46] VITALS: BP 138/95
== END 2019-03-05 21:47 | disposition home or self-care (01) ==
LOC: EDUNIT# 19:15 → ER 19:16
DX: G43.909 Migraine, unspecified, not intractable, without status migrainosus (principal); J44.9 Chronic obstructive pulmonary disease, unspecified; I10 Essential (primary) hypertension; E11.40 Type 2 diabetes mellitus with diabetic neuropathy, unspecified; E78.00 Pure hypercholesterolemia, unspecified; F41.9 Anxiety disorder, unspecified; F32.9 Major depressive disorder, single episode, unspecified; I25.10 Atherosclerotic heart disease of native coronary artery without angina pectoris; K21.9 Gastro-esophageal reflux disease without esophagitis; K58.9 Irritable bowel syndrome, unspecified; M79.7 Fibromyalgia; Z88.0 Allergy status to penicillin; Z88.2 Allergy status to sulfonamides; Z87.440 Personal history of urinary (tract) infections; Z87.442 Personal history of urinary calculi; Z88.6 Allergy status to analgesic agent; Z88.8 Allergy status to other drugs, medicaments and biological substances; Z79.01 Long term (current) use of anticoagulants; Z79.4 Long term (current) use of insulin; Z77.22 Contact with and (suspected) exposure to environmental tobacco smoke (acute) (chronic); Z90.49 Acquired absence of other specified parts of digestive tract; Z90.710 Acquired absence of both cervix and uterus; Z90.89 Acquired absence of other organs; Z95.0 Presence of cardiac pacemaker; Z82.49 Family history of ischemic heart disease and other diseases of the circulatory system
CPT/HCPCS: 96374; 96375; 99281

== ENCOUNTER 2019-03-11 08:19 | Day surgery (SDC) | payer MEDICARE ==
[2019-03-11] VITALS (8 sets, daily range): BP systolic 110–150; BP diastolic 58–75
[2019-03-11] MEDS ORDERED: CATHETER FLUSH 10 ML SYR IV PRN (08:30)
[2019-03-11] MEDS ORDERED: IOHEXOL 300 MG/ML 50 ML (OMNIPAQUE 300) VIAL IV ONE (08:30)
[2019-03-11] MEDS ORDERED: LIDOCAINE 1% INJ 20 ML 20 ML VIAL INJ ONE (09:00)
[2019-03-11 09:42] LABS: HEMOGLOBIN 13.9 G/DL (11.5-16.0); MEAN PLATELET VOLUME 9.1 FL (7.4-10.4); RED CELL DISTRIBUTION WIDTH 14.2 % (10.0-14.5); WHITE BLOOD COUNT 10.7 10^3/uL (4.3-11.0)
[2019-03-11 09:53] LABS: PROTHROMBIN TIME PATIENT 13.4 SEC (12.2-14.7)
[2019-03-11] MEDS ORDERED: ACETAMINOPHEN 500 MG TAB (TYLENOL) PO PRN (11:00)
--- NOTE | 2019-03-11 11:09 | Diagnostic Imaging Report ---
INDICATION: Neck pain. TECHNIQUE: The patient was brought to the procedure room and placed on the table in the prone position. The skin of the low back was prepped and draped in the usual sterile fashion. A small amount of 1% lidocaine was utilized for local anesthesia. A 22-gauge spinal needle was advanced into the lumbar thecal sac at the L4 level. 10 mL of Omnipaque 300 was injected under fluoroscopic observation. The needle was removed and hemostasis was obtained. 1 minute and 2 seconds of fluoroscopic time was utilized. The patient was then placed in a Trendelenburg position in order for contrast to pass into the cervical spinal canal. The patient was then sent to CT for post myelography CT. IMPRESSION: Intrathecal injection of iodinated contrast utilizing fluoroscopic guidance. Further evaluation will be performed with post-myelography CT. Dictated by: Dictated on workstation # [id number]
--- NOTE | 2019-03-11 11:15 | Diagnostic Imaging Report ---
PROCEDURE: CT cervical spine with contrast. TECHNIQUE: Axial CT cervical spine was performed with the use of intravenous contrast, the images were reconstructed in sagittal and coronal planes. Auto Exposure Controls were utilized during the CT exam to meet ALARA standards for radiation dose reduction. INDICATION: Neck pain. Patient is status post intrathecal contrast injection. FINDINGS: Contrast is seen throughout the cervical thecal sac. There is some straightening of the normal cervical lordotic curvature. There are postop changes of ACDF with anterior plate and screws transfixing C5-C6 level. The hardware is intact without fracture or loosening. C2-C3: Central canal and neural foramina appear widely patent. C3-C4: Minimal endplate osteophyte changes are noted, but central canal and neural foramina are widely patent. C4-C5: There is a midline disc bulge indenting the ventral thecal sac. No significant central canal narrowing is seen. C5-C6: Endplate osteophytes indent the ventral thecal sac, but central canal remains patent. There are uncovertebral joint degenerative changes, but neural foramina appear patent. C6-C7: There appears to be wide-based midline disc/osteophyte complex indenting the ventral thecal sac. There does not appear to be significant central canal narrowing. Neural foramina are patent. C7-T1: Central canal and neural foramina appear patent. IMPRESSION: 1. Postop changes of ACDF at the C5-C6 level. No hardware fracture or loosening is seen. 2. There appear to be disc bulges at the C4-C5 as well as C6-C7 levels indenting the ventral thecal sac, best seen on sagittal images. No significant central canal stenosis is seen. Dictated by: Dictated on workstation # [id number]
--- NOTE | 2019-03-11 13:23 | Progress Note-Pre Operative ---
Pre-Operative Progress Note H&P Reviewed The H&P was reviewed, patient examined and no changes noted. Date Seen by Provider: Mar 11, 2019 Time Seen by Provider: 09:00 Date H&P Reviewed: Mar 11, 2019 Time H&P Reviewed: 09:00 Pre-Operative Diagnosis: Neck pain MARIA T BARNETT MD Mar 11, 2019 13:23
== END 2019-03-11 14:18 | disposition home or self-care (01) ==
LOC: RAD 08:19 → SDC 10:56 → RAD 14:18
PROVIDERS: ATTEND Physician Assistant
DX: M54.2 Cervicalgia (principal); M79.602 Pain in left arm; M47.23 Other spondylosis with radiculopathy, cervicothoracic region; Z88.2 Allergy status to sulfonamides; Z88.0 Allergy status to penicillin; Z88.5 Allergy status to narcotic agent
CPT/HCPCS: 36415; 62284; 72126; 72240; 77002; 85027; 85610; 85730

== ENCOUNTER 2019-04-03 23:00 | Emergency (ER) | payer MEDICARE ==
[~2019-04-03] VITALS: Ht 160 cm; Wt 104.0 kg
[~2019-04-03 23:00] MED LIST changes: +DILT240C92 PO; -DILT240C97 PO; -GLIM2TAB; -GLIM2TAB PO; +GLIM2TAB2; +GLIM2TAB2 PO; -GLIM4TAB PO; +GLIM4TAB3 PO; +MAGN400T8 PO; -MELA3TAB PO; +MELA3TAB65 PO; +METF500T19 PO; -METF500T8 PO; +OMEP40CA27 PO
[2019-04-04] MEDS ORDERED: KETOROLAC 60 MG/2 ML VIAL IM ONE (00:15)
[2019-04-04] MEDS ORDERED: diphenhydrAMINE 50 MG/ML INJ (BENADRYL) IM ONE (00:15)
[2019-04-04] MEDS ORDERED: ONDANSETRON 4 MG (ZOFRAN) ORAL DISSOLVE TAB PO ONE (00:15)
[2019-04-04] MEDS ORDERED: ORPHENADRINE 60 MG/2 ML (NORFLEX) AMP IM ONE (00:15)
--- NOTE | 2019-04-04 00:22 | ED Headache ---
General Chief Complaint: Head/Cervical Problems Stated Complaint: MIGRAINE Nursing Triage Note: AMBULATORY TO ED ROOM 10 WITH C/O MIGRAINE FOR 2 WEEKS AND TONIGHT SHE STATES, "IT JUST GOT SO BAD TONIGHT I JUST NEED SOME RELIEF". PT HAS NOT TAKEN ANY PAIN MEDICATION AND STATES, "NOTHING WORKS." Nursing Sepsis Screen: No Definite Risk Allergies and Home Medications Allergies Coded Allergies: Penicillins (Unverified Allergy, Severe, Pt has received Cefepime & Ceftriaxone in the past w/o issue, 07/21/18) SWELLING, RASH, ITCHING Sulfa (Sulfonamide Antibiotics) (Verified Allergy, Mild, 07/21/18) RASH aspirin (Verified Adverse Reaction, Mild, ASPIRIN SENSITIVE, 07/21/18) UPSET STOMACH sumatriptan (Verified Adverse Reaction, Mild, PALPITATIONS, 07/21/18) IRRITABLE Home Medications Acetaminophen 650 Mg Tablet.er, 650 MG PO Q4H Prescribed by: NANNETTE REVELES on 05/01/18 104 Apixaban 5 Mg Tablet, 5 MG PO Q12H Prescribed by: YASMANI HAMILTON on 05/01/18 0906 Buspirone HCl 5 Mg Tablet, 5 MG PO TID, (Reported) Diltiazem HCl 240 Mg Cap.er.24h, 240 MG PO DAILY Prescribed by: YASMANI HAMILTON on 05/01/18 0906 Doxepin HCl 10 Mg Capsule, 20 MG PO HS Prescribed by: NANNETTE REVELES on 05/13/18 1711 Hydrocodone Bit/Acetaminophen 1 Tab Tab, 1 TAB PO Q4H PRN for PAIN-MODERATE Prescribed by: NANNETTE REVELES on 05/01/18 1041 Insulin Determir 1,000 Units/10 Ml Soln, 50 UNIT SQ DAILY Prescribed by: NANNETTE REVELES on 05/01/18 1041 Ipratropium/Albuterol Sulfate 3 Ml Ampul.neb, 3 ML NEB Q6H PRN for SHORTNESS OF BREATH, (Reported) Levofloxacin 750 Mg Tablet, 750 MG PO DAILY Prescribed by: BRADY BROWN on 05/22/182035 Lorazepam 0.5 Mg Tablet, 0.5 MG PO TID PRN for ANXIETY Prescribed by: NANNETTE REVELES on 05/01/18 104 Magnesium Oxide 400 Mg Tablet, 400 MG PO BIDPC Prescribed by: YASMANI HAMILTON on 05/01/18 0906 Melatonin 3 Mg Tablet, 6 MG PO HS Prescribed by: NANNETTE REVELES on 05/01/18 1041 Metformin HCl 500 Mg Tab.er.24h, 1,000 MG PO BID TAKE 2 (500MG) TABS Prescribed by: NANNETTE REVELES on 05/01/18 1041 Metoprolol Tartrate 100 Mg Tablet, 100 MG PO BID, (Reported) Miconazole Nitrate 90 Gm Powder, 0 GM TOP BID to groin twice a day for 2 weeks Prescribed by: NANNETTE REVELES on 05/13/18 1709 Omeprazole 40 Mg Capsule.dr, 40 MG PO BID, (Reported) Ondansetron 4 Mg Tab.rapdis, 4 MG PO Q6H PRN for NAUSEA/VOMITING Prescribed by: ISRAEL ODELL on 12/25/18 1247 Pramipexole Di-HCl 1 Mg Tablet, 1 MG PO 1700, (Reported) Sennosides 8.6 Mg Tablet, 8.6 MG PO BID Prescribed by: NANNETTE REVELES on 05/01/18 1041 Past Yculmzx-Jpzbhj-Wquyru Hx Patient Social History Alcohol Use: Denies Use Recreational Drug Use: No 2nd Hand Smoke Exposure: Yes Recent Foreign Travel: No Contact w/Someone Who Travel: No Recent Infectious Disease Expo: No Recent Hopitalizations: No Physical Abuse: No Sexual Abuse: No Mistreated: No Fear: No Immunizations Up To Date Tetanus Booster (TDap): Unknown PED Vaccines UTD: No Date of Pneumonia Vaccine: Dec 02, 2017 Date of Influenza Vaccine: Jan 24, 2018 Seasonal Allergies Seasonal Allergies: Yes Past Medical History Surgeries: Yes (LAP NISSIEN recent back/ neck / vertabrae surgery, aicd) Abdominal, Appendectomy, Cardiac, Defibrillator, Eye Surgery, Gallbladder, Hysterectomy, Oophorectomy, Orthopedic, Pacemaker, Tonsillectomy Respiratory: Yes Asthma, Pneumonia, Chronic Bronchitis, COPD Currently Using CPAP: No Currently Using BIPAP: No Cardiac: Yes Coronary Artery Disease, High Cholesterol, Hypertension, Irregular Heartbeat Neurological: Yes Headaches /Migraines, Neuropathy 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 Disorders: No Female 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 Disorders: Denies [employer] History: Menopausal Sexually Transmitted Disease: No Genitourinary: Yes Kidney Infection, Bladder Infection, Kidney Stones, UTI-Chronic Gastrointestinal: Yes (S/P CORNELIUS FUNDOPLICATION; ESOPHAGEAL STRICTURES/DILATIONS; DYSPHAGIA) Gastroesophageal Reflux, Diverticulosis, Hemorrhoids, Polyps, C-Diff, Hiatal Hernia, Ulcer, Irritable Bowel Musculoskeletal: Yes Degenerate Disk Disease, Arthritis, Fibromyalgia, Chronic Back Pain, Fractures Endocrine: Yes Diabetes, Insulin dep, Diabetes, Non-Insulin dep HEENT: Yes Cataract Loss of Vision: Denies Hearing Impairment: Denies Cancer: No Psychosocial: Yes Anxiety, Depression Integumentary: Yes Pruritis Blood Disorders: No Adverse Reaction/Blood Tranf: No Family Medical History Alzheimer's disease 19 FATHER Cardiovascular disease 19 FATHER 19 MOTHER Completed stroke 19 MOTHER Hypertension 19 FATHER 19 MOTHER Myocardial infarction 19 FATHER 19 MOTHER No Family History of: Diabetes mellitus Physical Exam Vital Signs Vital Signs - First Documented 04/03/19 23:55 Temp 36.8 Pulse 77 Resp 18 B/P (MAP) 141/111 (121) O2 Delivery Room Air Capillary Refill : Less Than 3 Seconds Height, Weight, BMI Height: 5'4.00" Weight: 215lbs. 0oz. 97.292105an; 40.00 BMI Method:Stated Procedures/Interventions Date of ETT Placement: Apr 21, 2018 Time of ETT Placement: 1744 Progress/Results/Core Measures Results/Orders My Orders Orders - PETER ASHLEY DO Orphenadrine Injection (Norflex Injectio (04/04/19 00:15) Ketorolac Injection (Toradol Injection) (04/04/19 00:15) Diphenhydramine Injection (Benadryl Inje (04/04/19 00:15) Ondansetron Oral Dissolve Tab (Zofran (04/04/19 00:15) Vital Signs/I&O 04/03/19 23:55 Temp 36.8 Pulse 77 Resp 18 B/P (MAP) 141/111 (121) O2 Delivery Room Air Blood Pressure Mean: 121 Departure Impression Primary Impression: CHRONIC HEADACHE COMPLAINT Disposition: HOME, SELF-CARE Condition: Stable Departure-Patient Inst. Referrals: NANNETTE REVELES DO (PCP/Family) Primary Care Physician Patient Instructions: Headache, Adult (DC) Add. Discharge Instructions: TAKE YOUR MEDICATION PRESCRIBED FOLLOW UP WITH YOUR DR NEXT WEEK FOR FURTHER CARE All discharge instructions reviewed with patient and/or family. Voiced understanding. PETER ASHLEY DO Apr 04, 2019 00:21
[2019-04-04 00:46] VITALS: BP 134/67
== END 2019-04-04 00:46 | disposition home or self-care (01) ==
LOC: EDUNIT# 23:00 → ER 23:01
DX: R51 Headache (principal); J44.9 Chronic obstructive pulmonary disease, unspecified; I10 Essential (primary) hypertension; E11.40 Type 2 diabetes mellitus with diabetic neuropathy, unspecified; I25.10 Atherosclerotic heart disease of native coronary artery without angina pectoris; E78.00 Pure hypercholesterolemia, unspecified; K21.9 Gastro-esophageal reflux disease without esophagitis; F41.9 Anxiety disorder, unspecified; F32.9 Major depressive disorder, single episode, unspecified; Z88.0 Allergy status to penicillin; Z88.2 Allergy status to sulfonamides; Z88.6 Allergy status to analgesic agent; Z88.8 Allergy status to other drugs, medicaments and biological substances; Z79.01 Long term (current) use of anticoagulants; Z79.4 Long term (current) use of insulin; Z77.22 Contact with and (suspected) exposure to environmental tobacco smoke (acute) (chronic); Z95.810 Presence of automatic (implantable) cardiac defibrillator; Z82.49 Family history of ischemic heart disease and other diseases of the circulatory system
CPT/HCPCS: 96372; 99282; 99284

== ENCOUNTER → 2019-04-16 | Outpatient (CLI) | payer MEDICARE ==
[2019-04-16 13:28] LABS: BASOPHILS # (AUTO) 0.1 10^3/uL (0.0-0.1); BASOPHILS % (AUTO) 1 % (0-10); EOSINOPHILS # (AUTO) 0.2 10^3/uL (0.0-0.3); EOSINOPHILS % (AUTO) 2 % (0-10); HEMATOCRIT 40 % (35-52); LYMPHOCYTES % (AUTO) 21 % (12-44); MEAN CORPUSCULAR HEMOGLOBIN 29 PG (25-34); MEAN CORPUSCULAR HGB CONC 32 G/DL (32-36); MEAN CORPUSCULAR VOLUME 91 FL (80-99); MEAN PLATELET VOLUME 9.9 FL (7.4-10.4); MONOCYTES # (AUTO) 0.5 X 10^3 (0.0-1.0); MONOCYTES % (AUTO) 5 % (0-12); NEUTROPHILS % (AUTO) 72 % (42-75); PLATELET COUNT 295 10^3/uL (130-400); RED CELL DISTRIBUTION WIDTH 14.1 % (10.0-14.5); WHITE BLOOD COUNT 9.8 10^3/uL (4.3-11.0)
[2019-04-16 13:56] LABS: ALBUMIN 3.8 GM/DL (3.2-4.5); BILIRUBIN,TOTAL 0.2 MG/DL (0.1-1.0); CALCIUM 9.5 MG/DL (8.5-10.1); CREATININE SERUM 0.95 MG/DL (0.60-1.30); TOTAL PROTEIN 6.8 GM/DL (6.4-8.2)
== END ==
LOC: LAB 13:02
PROVIDERS: ATTEND Nurse Practitioner Family
DX: E11.9 Type 2 diabetes mellitus without complications (principal); R60.9 Edema, unspecified; R06.00 Dyspnea, unspecified; N23 Unspecified renal colic
CPT/HCPCS: 36415; 80053; 83036; 83880; 84443; 85025

== ENCOUNTER 2019-04-22 23:24 | Emergency (ER) | payer MEDICARE ==
[~2019-04-22] VITALS: Ht 160 cm; Wt 104.3 kg
[2019-04-23 00:23] LABS: BILIRUBIN,URINE NEGATIVE (NEGATIVE); CLARITY,URINE SL CLOUDY; COLOR,URINE YELLOW; GLUCOSE, URINE (UA) TRACE (NEGATIVE); KETONES,URINE NEGATIVE (NEGATIVE); LEUKOCYTE ESTERASE ,URINE 1+ (NEGATIVE); NITRITE,URINE NEGATIVE (NEGATIVE); PH,URINE 5.5 (5-9); PROTEIN,URINE NEGATIVE (NEGATIVE)
--- NOTE | 2019-04-23 00:27 | ED Headache ---
General Chief Complaint: Head/Cervical Problems Stated Complaint: MIGRAINE,ABD PAIN Source: patient, old records History of Present Illness Date Seen by Provider: Apr 23, 2019 Time Seen by Provider: 00:10 Initial Comments PT ARRIVES VIA POV FROM HOME MULTIPLE COMPLAINTS C/O "MIGRAINE" PT HAS CHRONIC DAILY HEADACHES AND THIS IS NO DIFFERENT IN ANY WAY PT HAS NOT TAKEN ANYTHING AT ANY TIME FOR THIS PROBLEM PT WITH A MULTITUDE OF VISITS FOR THIS COMPLAINT AND HAS HAD EXTENSIVE WORK UP'S BY MULTIPLE PROVIDERS AT MULTIPLE FACILITIES--ALL BENIGN FOR INTRACRANIAL ABNORMALITY. HAS HAD CHRONIC NECK PAIN WITH RADICULOPATHY AND C-SPINE SURGERY--IS NOT COMPLAINING OF PARESTHESIAS OR MOTOR DEFICITS AT THIS TIME. NO VISION CHANGES C/O NAUSEA, NO VOMITING C/O DIZZINESS PT HAS NOT ATTEMPTED TO FOLLOW UP WITH HER PCP AT ANY TIME FOR THIS PROBLEM LAST VISIT HERE WAS 04/03/19 FOR THIS EXACT SAME COMPLAINT. ALSO SEEN HERE 03/05/19 FOR EXACT SAME HEADACHE COMPLAINT PT ALSO C/O UTI SYMPTOMS FOR A FEW WEEKS STATES SHE WAS SEEN BY CONTESTANT COORDINATOR AT DR. REVELES'S LAST SATURDAY AND DX WITH UTI AND GIVEN A SHOT OF ANTIBIOTICS BUT NO RX STATES SHE STILL HAS LOWER ABDOMINAL DISCOMFORT AND BURNING ON URINATION HAS NOT TAKEN ANYTHING FOR THOSE SYMPTOMS PT ALSO STATES SHE HAS HAD LOW GRADE FEVER--99-100--WITH NON-PRODUCTIVE COUGH AND CONGESTION --STARTED THIS PAST WEEKEND. 04/19/19 HAS NOT TAKEN ANYTHING FOR THOSE SYMPTOMS PCP: DR. REVELES Allergies and Home Medications Allergies Coded Allergies: Penicillins (Unverified Allergy, Severe, Pt has received Cefepime & Ceftriaxone in the past w/o issue, 07/21/18) SWELLING, RASH, ITCHING Sulfa (Sulfonamide Antibiotics) (Verified Allergy, Mild, 07/21/18) RASH aspirin (Verified Adverse Reaction, Mild, ASPIRIN SENSITIVE, 07/21/18) UPSET STOMACH sumatriptan (Verified Adverse Reaction, Mild, PALPITATIONS, 07/21/18) IRRITABLE Home Medications Acetaminophen 650 Mg Tablet.er, 650 MG PO Q4H Prescribed by: NANNETTE REVELES on 05/01/18 1042 Apixaban 5 Mg Tablet, 5 MG PO Q12H Prescribed by: YASMANI HAMILTON on 05/01/18 0906 Buspirone HCl 5 Mg Tablet, 5 MG PO TID, (Reported) Diltiazem HCl 240 Mg Cap.er.24h, 240 MG PO DAILY Prescribed by: YASMANI HAMILTON on 05/01/18 09 Doxepin HCl 10 Mg Capsule, 20 MG PO HS Prescribed by: NANNETTE REVELES on 05/13/18 171 Hydrocodone Bit/Acetaminophen 1 Tab Tab, 1 TAB PO Q4H PRN for PAIN-MODERATE Prescribed by: NANNETTE REVELES on 05/01/18 104 Insulin Determir 1,000 Units/10 Ml Soln, 50 UNIT SQ DAILY Prescribed by: NANNETTE REVELES on 05/01/18 104 Ipratropium/Albuterol Sulfate 3 Ml Ampul.neb, 3 ML NEB Q6H PRN for SHORTNESS OF BREATH, (Reported) Levofloxacin 750 Mg Tablet, 750 MG PO DAILY Prescribed by: BRADY BROWN on 05/22/182035 Lorazepam 0.5 Mg Tablet, 0.5 MG PO TID PRN for ANXIETY Prescribed by: NANNETTE REVELES on 05/01/18 104 Magnesium Oxide 400 Mg Tablet, 400 MG PO BIDPC Prescribed by: YASMANI HAMILTON on 05/01/18905 Melatonin 3 Mg Tablet, 6 MG PO HS Prescribed by: NANNETTE REVELES on 05/01/18 104 Metformin HCl 500 Mg Tab.er.24h, 1,000 MG PO BID TAKE 2 (500MG) TABS Prescribed by: NANNETTE REVELES on 05/01/18 104 Metoprolol Tartrate 100 Mg Tablet, 100 MG PO BID, (Reported) Miconazole Nitrate 90 Gm Powder, 0 GM TOP BID to groin twice a day for 2 weeks Prescribed by: NANNETTE REVELES on 05/13/18 170 Nitrofurantoin Monohyd/M-Cryst 100 Mg Capsule, 100 MG PO BID Prescribed by: PETER ASHLEY on 04/23/19 004 Omeprazole 40 Mg Capsule.dr, 40 MG PO BID, (Reported) Ondansetron 4 Mg Tab.rapdis, 4 MG PO Q6H PRN for NAUSEA/VOMITING Prescribed by: ISRAEL ODELL on 12/25/18 1247 Phenazopyridine HCl 200 Mg Tablet, 1 TAB PO TID Prescribed by: PETER ASHLEY on 04/23/19 0046 Pramipexole Di-HCl 1 Mg Tablet, 1 MG PO 1700, (Reported) Sennosides 8.6 Mg Tablet, 8.6 MG PO BID Prescribed by: NANNETTE REVELES on 05/01/18 1041 Patient Home Medication List Home Medication List Reviewed: Yes Review of Systems Review of Systems Constitutional: see HPI, chills, fever Eyes: No Symptoms Reported Ears, Nose, Mouth, Throat: nose discharge Respiratory: cough; No short of breath, No wheezing Gastrointestinal: see HPI, abdominal pain Genitourinary: see HPI, dysuria Psychiatric/Neurological: See HPI, Headache Past Bytxvle-Bqbyat-Npxlvm Hx Past Med/Social Hx: Reviewed and Corrections made Patient Social History Alcohol Use: Denies Use Recreational Drug Use: No Smoking Status: Never a Smoker 2nd Hand Smoke Exposure: Yes Recent Foreign Travel: No Contact w/Someone Who Travel: No Recent Hopitalizations: No Immunizations Up To Date Tetanus Booster (TDap): Unknown PED Vaccines UTD: No Date of Pneumonia Vaccine: Dec 02, 2017 Date of Influenza Vaccine: Jan 24, 2018 Seasonal Allergies Seasonal Allergies: Yes Past Medical History Surgeries: Yes (LAP CORNELIUS; C-SPINE FUSION/DISCECTOMY C5-C6 ) Abdominal, Appendectomy, Cardiac, Defibrillator, Eye Surgery, Gallbladder, Hysterectomy, Oophorectomy, Orthopedic, Pacemaker, Tonsillectomy Respiratory: Yes (O2 AT HS AND PRN) Asthma, Pneumonia, Chronic Bronchitis, Sleep Apnea, COPD Currently Using CPAP: No Currently Using BIPAP: No Cardiac: Yes (PACEMAKER/DEFIBRILLATOR;CARDIAC ARREST DURING ENT SURGE RY;PSVT/PALPITATIONS) Coronary Artery Disease, High Cholesterol, Hypertension, Irregular Heartbeat Neurological: Yes (PERIPHERAL NEUROPATHY HANDS/FEET; CHRONIC HEADACHES) Headaches /Migraines, Neuropathy 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 Disorders: No Female 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 PAIN) Degenerate Disk Disease, Arthritis, Fibromyalgia, Chronic Back Pain, Fractures Endocrine: Yes Diabetes, Insulin dep, Diabetes, Non-Insulin dep HEENT: Yes (S/P BILATERAL CATARACT SURGERY + YAG PROCEDURE;ENT SURG WITH CARDIAC ARREST) Cataract Loss of Vision: Denies Hearing Impairment: Denies Cancer: No Psychosocial: Yes Anxiety, Depression Integumentary: Yes (NELIA INTERTRIGO) Blood Disorders: No Adverse Reaction/Blood Tranf: No Family Medical History Alzheimer's disease 19 FATHER Cardiovascular disease 19 FATHER 19 MOTHER Completed stroke 19 MOTHER Hypertension 19 FATHER 19 MOTHER Myocardial infarction 19 FATHER 19 MOTHER No Family History of: Diabetes mellitus PSH: -T12 KYPHOPLASTY -C5-C6 CERVICAL DISCECTOMY WITH FUSION 04/2018 -LAP CORNELIUS FUNDOPLICATION -EGD'S/ESOPHAGEAL DILATIONS/COLONOSCOPIES/POLYPECTOMIES -PACEMAKER/DEFIBRILLATOR -HYSTERECTOMY/BSO -CHOLECYSTECTOMY -APPENDECTOMY -TONSILLECTOMY -OVARIAN CYST SURGERIES X 4 -CYST FROM BACK REMOVED -ENT SURGERY PMH: -CHRONIC NECK PAIN WITH CERVICAL RADICULOPATHY -RESTLESS LEG SYNDROME -CHRONIC BACK PAIN -T12 COMPRESSION WITH KYPHOPLASTY Physical Exam Vital Signs Vital Signs - First Documented 04/22/19 23:55 Temp 36.8 Pulse 70 Resp 20 B/P (MAP) 147/73 (97) Pulse Ox 95 O2 Delivery Room Air Capillary Refill : Height, Weight, BMI Height: 5'4.00" Weight: 215lbs. 0oz. 97.851589lk; 40.00 BMI Method:Stated General Appearance: WD/WN, no apparent distress, other (WEARING DARK GLASSES, HAIR DYED PURPLE. NO COUGH NOTED AT ANY TIME. WALKS UPRIGHT AND MOVES WITHOUT DIFFICULTY) HEENT: PERRL/EOMI Neck: normal inspection Cardiovascular: regular rate, rhythm, no murmur Respiratory: normal breath sounds, no respiratory distress Gastrointestinal: soft, tenderness (SUPRAPUBIC TENDERNESS) Back: no CVA tenderness Extremities: normal inspection, no pedal edema Psychiatric: alert, oriented x 3 Crainal Nerves: normal hearing, normal speech Coordination/Gait: normal gait Motor/Sensory: no motor deficit, no sensory deficit Skin: normal color, warm/dry Procedures/Interventions Date of ETT Placement: Apr 21, 2018 Time of ETT Placement: 1744 Progress/Results/Core Measures Results/Orders Lab Results Laboratory Tests Test 04/23/19 00:13 Range/Units Urine Color YELLOW Urine Clarity SL CLOUDY Urine pH 5.5 5-9 Urine Specific [place] >=1.030 1.016-1.022 Urine Protein NEGATIVE NEGATIVE Urine Glucose (UA) TRACE H NEGATIVE Urine Ketones NEGATIVE NEGATIVE Urine Nitrite NEGATIVE NEGATIVE Urine Bilirubin NEGATIVE NEGATIVE Urine Urobilinogen 0.2 < = 1.0 MG/DL Urine Leukocyte Esterase 1+ H NEGATIVE Urine RBC (Auto) NEGATIVE NEGATIVE Urine RBC NONE /HPF Urine WBC 25-50 H /HPF Urine Squamous Epithelial Cells 10-25 H /HPF Urine Crystals NONE /LPF Urine Bacteria FEW H /HPF Urine Casts NONE /LPF Urine Mucus MODERATE H /LPF Urine Culture Indicated YES Urine Opiates Screen NEGATIVE NEGATIVE Urine Oxycodone Screen NEGATIVE NEGATIVE Urine Methadone Screen NEGATIVE NEGATIVE Urine Propoxyphene Screen NEGATIVE NEGATIVE Urine Barbiturates Screen NEGATIVE NEGATIVE Ur Tricyclic Antidepressants Screen NEGATIVE NEGATIVE Urine Phencyclidine Screen NEGATIVE NEGATIVE Urine Amphetamines Screen NEGATIVE NEGATIVE Urine Methamphetamines Screen NEGATIVE NEGATIVE Urine Benzodiazepines Screen NEGATIVE NEGATIVE Urine Cocaine Screen NEGATIVE NEGATIVE Urine Cannabinoids Screen NEGATIVE NEGATIVE Micro Results Microbiology 04/23/19 Influenza Types A,B Antigen (YOLIE) - Final, Complete My Orders Orders - PETER ASHLEY DO Drug Screen Stat (Urine) (04/23/19 00:10) Ua Culture If Indicated (04/23/19 00:10) Urine Culture (04/23/19 00:13) Influenza A And B Antigens (04/23/19 00:38) Ketorolac Injection (Toradol Injection) (04/23/19 00:45) Medications Given in ED Current Medications Medications Dose Ordered Sig/Alannah Route Start Time Stop Time Status Last Admin Dose Admin Ketorolac Tromethamine 60 mg ONCE ONCE IM 04/23/19 00:45 04/23/19 00:46 DC 04/23/19 01:00 60 MG Vital Signs/I&O 04/22/19 04/23/19 23:55 01:33 Temp 36.8 36.8 Pulse 70 74 Resp 20 20 B/P (MAP) 147/73 (97) 127/73 (97) Pulse Ox 95 95 O2 Delivery Room Air Departure Impression Primary Impression: Urinary tract infection Additional Impressions: CHRONIC HEADACHE COMPLAINT Upper respiratory infection Disposition: 01 HOME, SELF-CARE Condition: Stable Departure-Patient Inst. Referrals: NANNETTE REVELES DO (PCP/Family) Primary Care Physician Patient Instructions: Headache, Adult (DC), Urinary Tract Infection, Adult (DC), Viral Upper Respiratory Infection, Adult (DC) Add. Discharge Instructions: HOME, REST LOTS OF CLEAR LIQUIDS TAKE TYLENOL AND MOTRIN NEEDED FOR PAIN OR FEVER OVER THE COUNTER MEDICATIONS FOR COUGH AND CONGESTION FOLLOW UP WITH YOUR DR NEXT WEEK TO RECHECK URINE All discharge instructions reviewed with patient and/or family. Voiced understanding. Scripts Phenazopyridine HCl (Pyridium) 200 Mg Tablet 1 TAB PO TID for BLADDER DISCOMFORT, #15 TAB Prov: PETER ASHLEY DO 04/23/19 Nitrofurantoin Monohyd/M-Cryst (Macrobid 100 mg Capsule) 100 Mg Capsule 100 MG PO BID, #20 CAP Prov: PETER ASHLEY DO 04/23/19 PETER ASHLEY DO Apr 23, 2019 00:27
[2019-04-23 00:29] LABS: BACTERIA,URINE FEW /HPF; WBC,URINE 25-50 /HPF
[2019-04-23 00:40] LABS: AMPHETAMINE SCREEN, URINE NEGATIVE (NEGATIVE); BARBITURATE SCREEN URINE NEGATIVE (NEGATIVE); BENZODIAZEPINES SCREEN URINE NEGATIVE (NEGATIVE); CANNABINOID SCREEN, URINE NEGATIVE (NEGATIVE); COCAINE SCREEN URINE NEGATIVE (NEGATIVE); METHADONE STAT NEGATIVE (NEGATIVE); METHAMPHETAMINE SCREEN URINE S NEGATIVE (NEGATIVE); OPIATE SCREEN URINE NEGATIVE (NEGATIVE); OXYCODONE STAT NEGATIVE (NEGATIVE); PROPOXYPHENE STAT NEGATIVE (NEGATIVE); TRICYCLIC ANTIDEPRESSANTS SCRE NEGATIVE (NEGATIVE)
[2019-04-23] MEDS ORDERED: KETOROLAC 60 MG/2 ML VIAL IM ONE (00:45)
[2019-04-23] MEDS ORDERED: NITR-65 PO (00:46)
[2019-04-23] MEDS ORDERED: PHEN-640 PO (00:46)
[2019-04-23 01:33] VITALS: BP 127/73
== END 2019-04-23 01:35 | disposition home or self-care (01) ==
LOC: EDUNIT# 23:24 → ER 23:25
DX: N39.0 Urinary tract infection, site not specified (principal); R51 Headache; J06.9 Acute upper respiratory infection, unspecified; J44.9 Chronic obstructive pulmonary disease, unspecified; I10 Essential (primary) hypertension; E78.00 Pure hypercholesterolemia, unspecified; I25.10 Atherosclerotic heart disease of native coronary artery without angina pectoris; E11.42 Type 2 diabetes mellitus with diabetic polyneuropathy; K21.9 Gastro-esophageal reflux disease without esophagitis; F41.9 Anxiety disorder, unspecified; Z86.69 Personal history of other diseases of the nervous system and sense organs; F32.9 Major depressive disorder, single episode, unspecified; Z88.0 Allergy status to penicillin; Z88.2 Allergy status to sulfonamides; Z87.442 Personal history of urinary calculi; Z88.6 Allergy status to analgesic agent; Z88.8 Allergy status to other drugs, medicaments and biological substances; Z79.01 Long term (current) use of anticoagulants; Z79.4 Long term (current) use of insulin; Z77.22 Contact with and (suspected) exposure to environmental tobacco smoke (acute) (chronic); Z82.49 Family history of ischemic heart disease and other diseases of the circulatory system
CPT/HCPCS: 80306; 81000; 87088; 87804

== ENCOUNTER 2019-04-25 07:08 | Emergency (ER) | payer MEDICARE ==
[~2019-04-25] VITALS: Ht 160 cm; Wt 104.5 kg
[~2019-04-25 07:08] MED LIST changes: -GLIM2TAB2; -GLIM2TAB2 PO; +GLIM2TAB4; +GLIM2TAB4 PO; -GLIM4TAB3 PO; +GLIM4TAB5 PO; +ROPI2TAB6 PO
[2019-04-25] MEDS ORDERED: PROMETHAZINE/ CODEINE SYRUP 5 ML UDC PO ONE (08:00)
[2019-04-25] MEDS ORDERED: predniSONE 20 MG TAB PO ONE (08:00)
--- NOTE | 2019-04-25 08:01 | ED Cough/URI ---
General Chief Complaint: Cough/Cold/Flu Symptoms Stated Complaint: SOA / COUGH / FEVER Nursing Triage Note: PATIENT STATES THAT SHE STARTED HAVING A COUGH AND FEVER AND SOB OFF AND ON FOR A FEW DAYS. Sepsis Screen: No Definite Risk Source: patient Exam Limitations: no limitations History of Present Illness Date Seen by Provider: Apr 25, 2019 Time Seen by Provider: 07:55 Initial Comments Here with report of cough and chest congestion. She states that last year she had cough like this that set off her defibrillator and she is worried about th at. She does have long history of vocal cord dysfunction with hospitalizations for that but they have never been unable to find a therapy that works. She is afraid that she is getting it back into that currently. Has had some intermittent nausea. She's been seen a few times this week. She has reported intermittent fevers although not found here. She's had negative flu swab in the last few days. She was diagnosed with a UTI but culture was negative so she did not start antibiotics. She follows with Dr. Reid. Timing/Duration: constant, week Severity/Quality: moderate, dry cough Prior Episodes/Possible Cause: frequent episodes Modifying Factors: Worse With Coughing Associated Symptoms: cough, fever/chills, nasal congestion, shortness of breath, wheezing Allergies and Home Medications Allergies Coded Allergies: Penicillins (Unverified Allergy, Severe, Pt has received Cefepime & Ceftriaxone in the past w/o issue, 07/21/18) SWELLING, RASH, ITCHING Sulfa (Sulfonamide Antibiotics) (Verified Allergy, Mild, 07/21/18) RASH aspirin (Verified Adverse Reaction, Mild, ASPIRIN SENSITIVE, 07/21/18) UPSET STOMACH sumatriptan (Verified Adverse Reaction, Mild, PALPITATIONS, 07/21/18) IRRITABLE Home Medications Acetaminophen 650 Mg Tablet.er, 650 MG PO Q4H Prescribed by: NANNETTE REID on 05/01/18 1042 Apixaban 5 Mg Tablet, 5 MG PO Q12H Prescribed by: YASMANI HAMILTON on 05/01/18 09 Buspirone HCl 5 Mg Tablet, 5 MG PO TID, (Reported) Diltiazem HCl 240 Mg Cap.er.24h, 240 MG PO DAILY Prescribed by: YASMANI HAMILTON on 05/01/18 09 Doxepin HCl 10 Mg Capsule, 20 MG PO HS Prescribed by: NANNETTE REID on 05/13/18 1711 Hydrocodone Bit/Acetaminophen 1 Tab Tab, 1 TAB PO Q4H PRN for PAIN-MODERATE Prescribed by: NANNETTE REID on 05/01/18 104 Insulin Determir 1,000 Units/10 Ml Soln, 50 UNIT SQ DAILY Prescribed by: NANNETTE REID on 05/01/18 1041 Ipratropium/Albuterol Sulfate 3 Ml Ampul.neb, 3 ML NEB Q6H PRN for SHORTNESS OF BREATH, (Reported) Levofloxacin 750 Mg Tablet, 750 MG PO DAILY Prescribed by: BRADY BROWN on 05/22/182035 Lorazepam 0.5 Mg Tablet, 0.5 MG PO TID PRN for ANXIETY Prescribed by: NANNETTE REID on 05/01/18 104 Magnesium Oxide 400 Mg Tablet, 400 MG PO BIDPC Prescribed by: YASMANI HAMILTON on 05/01/18 0906 Melatonin 3 Mg Tablet, 6 MG PO HS Prescribed by: NANNETTE REID on 05/01/18 104 Metformin HCl 500 Mg Tab.er.24h, 1,000 MG PO BID TAKE 2 (500MG) TABS Prescribed by: NANNETTE REID on 05/01/18 104 Metoprolol Tartrate 100 Mg Tablet, 100 MG PO BID, (Reported) Miconazole Nitrate 90 Gm Powder, 0 GM TOP BID to groin twice a day for 2 weeks Prescribed by: NANNETTE REID on 05/13/18 170 Nitrofurantoin Monohyd/M-Cryst 100 Mg Capsule, 100 MG PO BID Prescribed by: PETER ASHLEY on 04/23/19 004 Omeprazole 40 Mg Capsule.dr, 40 MG PO BID, (Reported) Ondansetron 4 Mg Tab.rapdis, 4 MG PO Q6H PRN for NAUSEA/VOMITING Prescribed by: ISRAEL ODELL on 12/25/18 1247 Phenazopyridine HCl 200 Mg Tablet, 1 TAB PO TID Prescribed by: PETER ASHLEY on 04/23/19 0046 Pramipexole Di-HCl 1 Mg Tablet, 1 MG PO 1700, (Reported) Sennosides 8.6 Mg Tablet, 8.6 MG PO BID Prescribed by: NANNETTE REID on 05/01/18 1041 Patient Home Medication List Home Medication List Reviewed: Yes Review of Systems Review of Systems Constitutional: see HPI EENTM: nose congestion, throat pain Respiratory: cough, short of breath, wheezing Gastrointestinal: see HPI Genitourinary: no symptoms reported Musculoskeletal: no symptoms reported Psychiatric/Neurological: No Symptoms Reported Past Sqyiswb-[id number]-Ymwhao Hx Past Med/Social Hx: Reviewed Nursing Past Med/Soc Hx Patient Social History Alcohol Use: Denies Use Recreational Drug Use: No Smoking Status: Never a Smoker 2nd Hand Smoke Exposure: Yes Recent Foreign Travel: No Contact w/Someone Who Travel: No Recent Infectious Disease Expo: No Recent Hopitalizations: No Physical Abuse: No Sexual Abuse: No Immunizations Up To Date Tetanus Booster (TDap): Unknown PED Vaccines UTD: No Date of Pneumonia Vaccine: Dec 02, 2017 Date of Influenza Vaccine: Dec 31, 2018 Seasonal Allergies Seasonal Allergies: Yes Past Medical History Surgeries: Yes (LAP CORNELIUS; C-SPINE FUSION/DISCECTOMY C5-C6 ) Abdominal, Appendectomy, Cardiac, Defibrillator, Eye Surgery, Gallbladder, Hysterectomy, Oophorectomy, Orthopedic, Pacemaker, Tonsillectomy Respiratory: Yes (O2 AT HS AND PRN) Asthma, Pneumonia, Chronic Bronchitis, Sleep Apnea, COPD Currently Using CPAP: No Currently Using BIPAP: No Cardiac: Yes (PACEMAKER/DEFIBRILLATOR;CARDIAC ARREST DURING ENT SURGERY;PSVT/PALPITATIONS) Coronary Artery Disease, High Cholesterol, Hypertension, Irregular Heartbeat Neurological: Yes (PERIPHERAL NEUROPATHY HANDS/FEET; CHRONIC HEADACHES) Headaches /Migraines, Neuropathy 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 Disorders: No Female 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 Disorders: Denies 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 PAIN) Degenerate Disk Disease, Arthritis, Fibromyalgia, Chronic Back Pain, Fractures Endocrine: Yes Diabetes, Insulin dep, Diabetes, Non-Insulin dep HEENT: Yes (S/P BILATERAL CATARACT SURGERY + YAG PROCEDURE;ENT SURG WITH CARDIAC ARREST) Cataract Loss of Vision: Denies Hearing Impairment: Denies Cancer: No Psychosocial: Yes Anxiety, Depression Integumentary: Yes (NELIA INTERTRIGO) Pruritis Blood Disorders: No Adverse Reaction/Blood Tranf: No Family Medical History Reviewed Nursing Family Hx Alzheimer's disease 19 FATHER Cardiovascular disease 19 FATHER 19 MOTHER Completed stroke 19 MOTHER Hypertension 19 FATHER 19 MOTHER Myocardial infarction 19 FATHER 19 MOTHER PSH: -T12 KYPHOPLASTY -C5-C6 CERVICAL DISCECTOMY WITH FUSION 04/2018 -LAP CORNELIUS FUNDOPLICATION -EGD'S/ESOPHAGEAL DILATIONS/COLONOSCOPIES/POLYPECTOMIES -PACEMAKER/DEFIBRILLATOR -HYSTERECTOMY/BSO -CHOLECYSTECTOMY -APPENDECTOMY -TONSILLECTOMY -OVARIAN CYST SURGERIES X 4 -CYST FROM BACK REMOVED -ENT SURGERY PMH: -CHRONIC NECK PAIN WITH CERVICAL RADICULOPATHY -RESTLESS LEG SYNDROME -CHRONIC BACK PAIN -T12 COMPRESSION WITH KYPHOPLASTY Physical Exam Vital Signs - First Documented 04/25/19 07:19 Temp 37.1 Pulse 68 Resp 20 B/P (MAP) 158/89 (112) Pulse Ox 97 O2 Delivery Room Air Capillary Refill : Less Than 3 Seconds Height: 5'4.00" Weight: 215lbs. 0oz. 97.507343ja; 40.00 BMI Method:Stated General Appearance: WD/WN, no apparent distress HEENT: PERRL/EOMI, pharyngeal erythema (mild) Neck: full range of motion, supple Respiratory: wheezing (upper respiratory sounds consistent with vocal cord dysfunction. ), other (lung sounds otherwise are clear bilaterally. Able to accomplish 10+ words sentences without difficulty and no stridor noted during speech.) Cardiovascular: regular rate, rhythm, no murmur Gastrointestinal: non tender, soft Extremities: non-tender, normal inspection Neurologic/Psychiatric: alert, oriented x 3 Skin: normal color, warm/dry Procedures/Interventions Date of ETT Placement: Apr 21, 2018 Time of ETT Placement: 1744 Progress/Results/Core Measures Suspected Sepsis Recent Fever Within 48 Hours: No Infection Criteria Present: Suspected New Infection New/Unexplained Altered Menta: No Sepsis Screen: No Definite Risk SIRS Temperature: Pulse: 68 Respiratory Rate: 20 Blood Pressure 158 /89 Mean: 112 Results/Orders My Orders Orders - CHERRIE CHURCH MD Promethazine/ Codeine Syrup (Phenergan W (04/25/19 08:00) Prednisone Tablet (Deltasone Tablet) (04/25/19 08:00) Chest Pa/Lat (2 View) (04/25/19 07:53) Medications Given in ED Current Medications Medications Dose Ordered Sig/Alannah Route Start Time Stop Time Status Last Admin Dose Admin Prednisone 40 mg ONCE ONCE PO 04/25/19 08:00 04/25/19 08:01 DC 04/25/19 08:45 40 MG Promethazine HCl/ Codeine 5 ml ONCE ONCE PO 04/25/19 08:00 04/25/19 08:01 DC 04/25/19 08:45 5 ML Vital Signs/I&O 04/25/19 07:19 Temp 37.1 Pulse 68 Resp 20 B/P (MAP) 158/89 (112) Pulse Ox 97 O2 Delivery Room Air Capillary Refill : Less Than 3 Seconds Blood Pressure Mean: 112 Progress Note : Progress Note Seen and evaluated. Chest x-ray ordered to rule out pneumonia. We will give prednisone 40 mg by mouth and Phenergan with codeine 5 mL by mouth for cough. I did discuss with her about local cortisone function and encouraged her to use the breathing exercises that she has learned through speech therapy for this. She states that she would. 0903: Patient doing okay. Chest x-ray reviewed. We will go ahead and initiate doxycycline outpatient as there could be a component of bacterial bronchitis given her history. We will continue out patient prednisone and I'll write for some Phenergan with codeine. Discharged home with return precautions. Patient verbalize understanding instructions and agreement with plan. Diagnostic Imaging Diagonstic Imaging: Xray Plain Films/CT/US/NM/MRI: chest Comments [facility]. [place], [place] NAME: BRAYDON [facility] REC#: [id number] PT STATUS: REG ER : 1945 PHYSICIAN: CHERRIE CHUCRH MD ADMIT DATE: 04/25/19/ER Draft Date of Exam:04/25/19 CHEST PA/LAT (2 VIEW) INDICATION: Cough and fever. PA and lateral views of the chest are obtained with comparison made to study of 01/18/2019. FINDINGS: Heart size is at the upper limits of normal. Pulmonary vascularity is unremarkable. There is no pneumothorax. Mild right basilar density may represent atelectasis or pneumonitis. There has been augmentation of vertebra at the thoracolumbar junction. IMPRESSION: Slight right basilar atelectasis and/or pneumonitis without other evidence of acute abnormality or adverse change. Dictated on workstation # [id number] Dict: 04/25/19 0814 Trans: 04/25/19 0817 KB [id number] Interpreted by: GONZALO ANAND MD Electronically signed by: Departure Impression Primary Impression: Bronchitis Additional Impression: Vocal cord dysfunction Disposition: HOME, SELF-CARE Condition: Stable Departure-Patient Inst. Decision time for Depature: 09:04 Referrals: NANNETTE REID DO (PCP/Family) Primary Care Physician Patient Instructions: Acute Bronchitis, Adult (DC), Bacterial Upper Respiratory Infection, Adult (DC), Spasmodic Dysphonia, Chronic Bronchitis, Acute Bronchitis Add. Discharge Instructions: All discharge instructions reviewed with patient and/or family. Voiced understanding. Drink plenty of fluids. You may take Tylenol and/or ibuprofen as needed for fever or pain per package directions. Take other medications as directed. Call Dr. Reid's office on Saturday for appointment this week. Return for worse pain, fever, vomiting, weakness, breathing problems or other concerns as needed. Scripts Prednisone (Prednisone) 20 Mg Tab 40 MG PO DAILY, #10 TAB 0 Refills Prov: CHERRIE CHURCH MD 04/25/19 Doxycycline Hyclate (Doxycycline Hyclate) 100 Mg Tablet 100 MG PO BID, #20 TAB 0 Refills Prov: CHERRIE CHURCH MD 04/25/19 Copy Copies To 1: NANNETTE REID TIMOTHY D MD Apr 25, 2019 08:01
--- NOTE | 2019-04-25 08:17 | Diagnostic Imaging Report ---
INDICATION: Cough and fever. PA and lateral views of the chest are obtained with comparison made to study of 01/18/2019. FINDINGS: Heart size is at the upper limits of normal. Pulmonary vascularity is unremarkable. There is no pneumothorax. Mild right basilar density may represent atelectasis or pneumonitis. There has been augmentation of vertebra at the thoracolumbar junction. IMPRESSION: Slight right basilar atelectasis and/or pneumonitis without other evidence of acute abnormality or adverse change. Dictated by: Dictated on workstation # [id number]
[2019-04-25] MEDS ORDERED: PROM118S PO (09:09)
[2019-04-25] MEDS ORDERED: PRD20T PO (09:09)
[2019-04-25] MEDS ORDERED: DOXY100T2 PO (09:09)
[2019-04-25 09:20] VITALS: BP 158/89
== END 2019-04-25 09:20 | disposition home or self-care (01) ==
LOC: EDUNIT# 07:08 → ER 07:09
DX: J40 Bronchitis, not specified as acute or chronic (principal); J38.3 Other diseases of vocal cords; I10 Essential (primary) hypertension; E78.00 Pure hypercholesterolemia, unspecified; I25.10 Atherosclerotic heart disease of native coronary artery without angina pectoris; J44.9 Chronic obstructive pulmonary disease, unspecified; E11.40 Type 2 diabetes mellitus with diabetic neuropathy, unspecified; K21.9 Gastro-esophageal reflux disease without esophagitis; F41.9 Anxiety disorder, unspecified; F32.9 Major depressive disorder, single episode, unspecified; Z95.810 Presence of automatic (implantable) cardiac defibrillator; Z79.01 Long term (current) use of anticoagulants; Z79.4 Long term (current) use of insulin; Z79.84 Long term (current) use of oral hypoglycemic drugs; Z77.22 Contact with and (suspected) exposure to environmental tobacco smoke (acute) (chronic); Z88.0 Allergy status to penicillin; Z88.2 Allergy status to sulfonamides; Z88.6 Allergy status to analgesic agent; Z88.8 Allergy status to other drugs, medicaments and biological substances; Z82.49 Family history of ischemic heart disease and other diseases of the circulatory system
CPT/HCPCS: 71046

== ENCOUNTER 2019-05-08 18:18 | Emergency (ER) | payer MEDICARE ==
[~2019-05-08] VITALS: Ht 160 cm; Wt 104.4 kg
[~2019-05-08 18:18] MED LIST changes: +DOXY100T2 PO; +PROM118S PO
[2019-05-08 18:44] LABS: BASOPHILS # (AUTO) 0.1 10^3/uL (0.0-0.1); BASOPHILS % (AUTO) 1 % (0-10); EOSINOPHILS # (AUTO) 0.2 10^3/uL (0.0-0.3); EOSINOPHILS % (AUTO) 2 % (0-10); HEMATOCRIT 42 % (35-52); HEMOGLOBIN 13.7 G/DL (11.5-16.0); LYMPHOCYTES # (AUTO) 2.5 X 10^3 (1.0-4.0); LYMPHOCYTES % (AUTO) 29 % (12-44); MEAN CORPUSCULAR HEMOGLOBIN 29 PG (25-34); MEAN CORPUSCULAR HGB CONC 33 G/DL (32-36); MEAN CORPUSCULAR VOLUME 88 FL (80-99); MEAN PLATELET VOLUME 9.8 FL (7.4-10.4); MONOCYTES # (AUTO) 0.5 X 10^3 (0.0-1.0); MONOCYTES % (AUTO) 6 % (0-12); NEUTROPHILS # (AUTO) 5.2 X 10^3 (1.8-7.8); NEUTROPHILS % (AUTO) 61 % (42-75); PLATELET COUNT 233 10^3/uL (130-400); RED CELL DISTRIBUTION WIDTH 13.5 % (10.0-14.5); WHITE BLOOD COUNT 8.4 10^3/uL (4.3-11.0)
[2019-05-08 19:04] LABS: ALANINE AMINOTRANSFERASE 23 U/L (0-55); ALBUMIN 3.7 GM/DL (3.2-4.5); ALKALINE PHOSPHATASE 115 U/L (40-136); BILIRUBIN,TOTAL 0.3 MG/DL (0.1-1.0); BUN/CREATININE RATIO 12; CALCIUM 9.3 MG/DL (8.5-10.1); CARBON DIOXIDE 24 MMOL/L (21-32); CHLORIDE 100 MMOL/L (98-107); CREATININE SERUM 1.13 MG/DL (0.60-1.30); GFR ESTIMATED 47; GLUCOSE 298 MG/DL (70-105); MAGNESIUM 1.5 MG/DL (1.6-2.4); POTASSIUM 3.8 MMOL/L (3.6-5.0); SODIUM 136 MMOL/L (135-145); TOTAL PROTEIN 6.7 GM/DL (6.4-8.2)
--- NOTE | 2019-05-08 19:22 | ED Syncope ---
General Chief Complaint: Trauma-Non Activation Stated Complaint: NECK PAIN Nursing Triage Note: PAIN TO LEFT NECK/HEAD/RIB Source of Information: Patient, EMS, Old Records Exam Limitations: No Limitations History of Present Illness Date Seen by Provider: May 08, 2019 Time Seen by Provider: 18:26 Initial Comments This 73 year old woman presents to the ER via EMS after having a syncopal episode and fall in her home. She reports having progressive weakness over the past several days. Today she felt very weak in her legs. She recalls being in the kitchen and feeling lightheaded and weak. She then states everything "went black" and she woke on the floor. She has her for her who activated EMS. She complained of worsening of her chronic neck pain. EMS applied a c- collar. She also complained of left knee pain. She has had worsening back pain recently but this is not changed after the fall. She has had intermittent problems with coughing and choking fits. She uses supplemental oxygen at night because of COPD. She was not wearing her oxygen at the time of the fall. She is alert and oriented at this time. She does have a [employer] pacemaker. Review of her chart notes multiple sedating medications filled recently including diazepam, gabapentin, baclofen, and Phenergan with Codeine. Fingerstick blood sugar for EMS was in the 220s. Location Injury Occurred: HOME Allergies and Home Medications Allergies Coded Allergies: Penicillins (Unverified Allergy, Severe, Pt has received Cefepime & Ceftriaxone in the past w/o issue, 07/21/18) SWELLING, RASH, ITCHING Sulfa (Sulfonamide Antibiotics) (Verified Allergy, Mild, 07/21/18) RASH aspirin (Verified Adverse Reaction, Mild, ASPIRIN SENSITIVE, 07/21/18) UPSET STOMACH sumatriptan (Verified Adverse Reaction, Mild, PALPITATIONS, 07/21/18) IRRITABLE Home Medications Acetaminophen 650 Mg Tablet.er, 650 MG PO Q4H Prescribed by: NANNETTE REVELES on 05/01/18 1042 Apixaban 5 Mg Tablet, 5 MG PO Q12H Prescribed by: YASMANI HAMILTON on 05/01/18 0906 Buspirone HCl 5 Mg Tablet, 5 MG PO TID, (Reported) Diltiazem HCl 240 Mg Cap.er.24h, 240 MG PO DAILY Prescribed by: YASMANI HAMILTON on 05/01/18 0906 Doxepin HCl 10 Mg Capsule, 20 MG PO HS Prescribed by: NANNETTE REVELES on 05/13/18 1711 Doxycycline Hyclate 100 Mg Tablet, 100 MG PO BID Prescribed by: CHERRIE CHURCH on 04/25/19 0909 Hydrocodone Bit/Acetaminophen 1 Tab Tab, 1 TAB PO Q4H PRN for PAIN-MODERATE Prescribed by: NANNETTE REVELES on 05/01/18 104 Insulin Determir 1,000 Units/10 Ml Soln, 50 UNIT SQ DAILY Prescribed by: NANNETTE REVELES on 05/01/18 1041 Ipratropium/Albuterol Sulfate 3 Ml Ampul.neb, 3 ML NEB Q6H PRN for SHORTNESS OF BREATH, (Reported) Levofloxacin 750 Mg Tablet, 750 MG PO DAILY Prescribed by: BRADY BROWN on 05/22/182035 Lorazepam 0.5 Mg Tablet, 0.5 MG PO TID PRN for ANXIETY Prescribed by: NANNETTE REVELES on 05/01/18 104 Magnesium Oxide 400 Mg Tablet, 400 MG PO BIDPC Prescribed by: YASMANI HAMILTON on 05/01/18 09 Melatonin 3 Mg Tablet, 6 MG PO HS Prescribed by: NANNETTE REVELES on 05/01/18 104 Metformin HCl 500 Mg Tab.er.24h, 1,000 MG PO BID TAKE 2 (500MG) TABS Prescribed by: NANNETTE REVELES on 05/01/18 104 Metoprolol Tartrate 100 Mg Tablet, 100 MG PO BID, (Reported) Miconazole Nitrate 90 Gm Powder, 0 GM TOP BID to groin twice a day for 2 weeks Prescribed by: NANNETTE REVELES on 05/13/18 170 Nitrofurantoin Monohyd/M-Cryst 100 Mg Capsule, 100 MG PO BID Prescribed by: PETER ASHLEY on 04/23/19 0046 Omeprazole 40 Mg Capsule.dr, 40 MG PO BID, (Reported) Ondansetron 4 Mg Tab.rapdis, 4 MG PO Q6H PRN for NAUSEA/VOMITING Prescribed by: ISRAEL ODELL on 12/25/18 1247 Phenazopyridine HCl 200 Mg Tablet, 1 TAB PO TID Prescribed by: PETER ASHLEY on 04/23/19 0046 Pramipexole Di-HCl 1 Mg Tablet, 1 MG PO 1700, (Reported) Prednisone 20 Mg Tab, 40 MG PO DAILY Prescribed by: CHERRIE CHURCH on 04/25/19 0909 Promethazine/Phenyleph/Codeine 118 Ml Syrup, 5 ML PO Q6H PRN for cough Prescribed by: CHERRIE CHURCH on 04/25/19 0910 Sennosides 8.6 Mg Tablet, 8.6 MG PO BID Prescribed by: NANNETTE REVELES on 05/01/18 1041 Patient Home Medication List Home Medication List Reviewed: Yes Review of Systems Constitutional: see HPI EENTM: no symptoms reported Respiratory: no symptoms reported Cardiovascular: see HPI Gastrointestinal: no symptoms reported Genitourinary: no symptoms reported : No Musculoskeletal: see HPI Skin: no symptoms reported Psychiatric/Neurological: See HPI Past [place]-Nysafe-Eqohat Hx Past Med/Social Hx: Reviewed Nursing Past Med/Soc Hx Patient Social History Alcohol Use: Denies Use Recreational Drug Use: No Smoking Status: Never a Smoker 2nd Hand Smoke Exposure: Yes Recent Foreign Travel: No Contact w/Someone Who Travel: No Recent Infectious Disease Expo: No Recent Hopitalizations: No Physical Abuse: No Sexual Abuse: No Mistreated: No Fear: No Immunizations Up To Date Tetanus Booster (TDap): Unknown PED Vaccines UTD: No Date of Pneumonia Vaccine: Dec 02, 2017 Date of Influenza Vaccine: Dec 31, 2018 Seasonal Allergies Seasonal Allergies: Yes Past Medical History Surgeries: Yes (LAP CORNELIUS; C-SPINE FUSION/DISCECTOMY C5-C6 ) Abdominal, Appendectomy, Cardiac, Defibrillator, Eye Surgery, Gallbladder, Hysterectomy, Oophorectomy, Orthopedic, Pacemaker, Tonsillectomy Respiratory: Yes (O2 AT HS AND PRN) Asthma, Pneumonia, Chronic Bronchitis, Sleep Apnea, COPD Currently Using CPAP: No Currently Using BIPAP: No Cardiac: Yes (PACEMAKER/DEFIBRILLATOR;CARDIAC ARREST DURING ENT SURGERY;PSVT/PALPITATIONS) Coronary Artery Disease, High Cholesterol, Hypertension, Irregular Heartbeat Neurological: Yes (PERIPHERAL NEUROPATHY HANDS/FEET; CHRONIC HEADACHES) Headaches /Migraines, Neuropathy 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 Disorders: No Female 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 Disorders: Denies 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 PAIN) Degenerate Disk Disease, Arthritis, Fibromyalgia, Chronic Back Pain, Fractures Endocrine: Yes Diabetes, Insulin dep, Diabetes, Non-Insulin dep HEENT: Yes (S/P BILATERAL CATARACT SURGERY + YAG PROCEDURE;ENT SURG WITH CARDIAC ARREST) Cataract Loss of Vision: Denies Hearing Impairment: Denies Cancer: No Psychosocial: Yes Anxiety, Depression Integumentary: Yes (NELIA INTERTRIGO) Pruritis Blood Disorders: No Adverse Reaction/Blood Tranf: No Family Medical History Reviewed Nursing Family Hx Alzheimer's disease 19 FATHER Cardiovascular disease 19 FATHER 19 MOTHER Completed stroke 19 MOTHER Hypertension 19 FATHER 19 MOTHER Myocardial infarction 19 FATHER 19 MOTHER No Family History of: Diabetes mellitus PSH: -T12 KYPHOPLASTY -C5-C6 CERVICAL DISCECTOMY WITH FUSION 04/2018 -LAP CORNELIUS FUNDOPLICATION -EGD'S/ESOPHAGEAL DILATIONS/COLONOSCOPIES/POLYPECTOMIES -PACEMAKER/DEFIBRILLATOR -HYSTERECTOMY/BSO -CHOLECYSTECTOMY -APPENDECTOMY -TONSILLECTOMY -OVARIAN CYST SURGERIES X 4 -CYST FROM BACK REMOVED -ENT SURGERY PMH: -CHRONIC NECK PAIN WITH CERVICAL RADICULOPATHY -RESTLESS LEG SYNDROME -CHRONIC BACK PAIN -T12 COMPRESSION WITH KYPHOPLASTY Physical Exam Vital Signs Vital Signs - First Documented 05/08/19 05/08/19 18:27 21:28 Temp 36.3 Pulse 77 Resp 21 B/P (MAP) 178/96 (123) Pulse Ox 97 O2 Delivery Room Air Capillary Refill : Less Than 3 Seconds Height, Weight, BMI Height: 5'4.00" Weight: 215lbs. 0oz. 97.144222tw; 40.00 BMI Method:Stated General Appearance: No Apparent Distress, WD/WN, Obese HEENT: PERRL/EOMI, Normal ENT Inspection, Other (mucous membranes somewhat dry) Neck: Normal Inspection, Tender Midline, Other (c-collar in place) Cardiovascular: Regular Rate, Rhythm, No Edema, No Murmur Respiratory: Lungs Clear, Normal Breath Sounds, No Accessory Muscle Use, No Respiratory Distress Gastrointestinal: Normal Bowel Sounds, Soft, Tenderness (slight in the left lower quadrant) Extremities: Normal Inspection, Other (mild general tenderness to palpation of the left knee. Mild pain with range of motion) Neurologic/Psychiatric: Alert, Oriented x3, No Motor/Sensory Deficits, 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, workers compensation examiner II-XII Norm as Tested Cranial Nerves: Normal Hearing, Normal Speech, PERRL Motor/Sensory: No Motor Deficit, No Sensory Deficit Skin: Normal Color, Warm/Dry Procedures/Interventions Date of ETT Placement: Apr 21, 2018 Time of ETT Placement: 1743 Progress/Results/Core Measures Results/Orders Lab Results Laboratory Tests Test 05/08/19 18:38 05/08/19 19:40 Range/Units White Blood Count 8.4 4.3-11.0 10^3/uL Red Blood Count 4.72 4.35-5.85 10^6/uL Hemoglobin 13.7 11.5-16.0 G/DL Hematocrit 42 35-52 % Mean Corpuscular Volume 88 80-99 FL Mean Corpuscular Hemoglobin 29 25-34 PG Mean Corpuscular Hemoglobin Concent 33 32-36 G/DL Red Cell Distribution Width 13.5 10.0-14.5 % Platelet Count 233 130-400 10^3/uL Mean Platelet Volume 9.8 7.4-10.4 FL Neutrophils (%) (Auto) 61 42-75 % Lymphocytes (%) (Auto) 29 12-44 % Monocytes (%) (Auto) 6 0-12 % Eosinophils (%) (Auto) 2 0-10 % Basophils (%) (Auto) 1 0-10 % Neutrophils # (Auto) 5.2 1.8-7.8 X 10^3 Lymphocytes # (Auto) 2.5 1.0-4.0 X 10^3 Monocytes # (Auto) 0.5 0.0-1.0 X 10^3 Eosinophils # (Auto) 0.2 0.0-0.3 10^3/uL Basophils # (Auto) 0.1 0.0-0.1 10^3/uL Sodium Level 136 135-145 MMOL/L Potassium Level 3.8 3.6-5.0 MMOL/L Chloride Level 100 98-107 MMOL/L Carbon Dioxide Level 24 21-32 MMOL/L Anion Gap 12 5-14 MMOL/L Blood Urea Nitrogen 14 7-18 MG/DL Creatinine 1.13 0.60-1.30 MG/DL Estimat Glomerular Filtration Rate 47 BUN/Creatinine Ratio 12 Glucose Level 298 H 70-105 MG/DL Calcium Level 9.3 8.5-10.1 MG/DL Corrected Calcium 9.5 8.5-10.1 MG/DL Magnesium Level 1.5 L 1.6-2.4 MG/DL Total Bilirubin 0.3 0.1-1.0 MG/DL Aspartate Amino Transf (AST/SGOT) 22 5-34 U/L Alanine Aminotransferase (ALT/SGPT) 23 0-55 U/L Alkaline Phosphatase 115 40-136 U/L Troponin I < 0.028 <0.028 NG/ML Total Protein 6.7 6.4-8.2 GM/DL Albumin 3.7 3.2-4.5 GM/DL Urine Color YELLOW Urine Clarity CLEAR Urine pH 6.0 5-9 Urine Specific [place] <=1.005 1.016-1.022 Urine Protein NEGATIVE NEGATIVE Urine Glucose (UA) 2+ H NEGATIVE Urine Ketones 1+ H NEGATIVE Urine Nitrite NEGATIVE NEGATIVE Urine Bilirubin NEGATIVE NEGATIVE Urine Urobilinogen 0.2 < = 1.0 MG/DL Urine Leukocyte Esterase NEGATIVE NEGATIVE Urine RBC (Auto) NEGATIVE NEGATIVE Urine RBC NONE /HPF Urine WBC 3-5 /HPF Urine Squamous Epithelial Cells 0-2 /HPF Urine Crystals NONE /LPF Urine Bacteria TRACE /HPF Urine Casts NONE /LPF Urine Mucus NEGATIVE /LPF Urine Culture Indicated NO Urine Opiates Screen NEGATIVE NEGATIVE Urine Oxycodone Screen NEGATIVE NEGATIVE Urine Methadone Screen NEGATIVE NEGATIVE Urine Propoxyphene Screen NEGATIVE NEGATIVE Urine Barbiturates Screen NEGATIVE NEGATIVE Ur Tricyclic Antidepressants Screen NEGATIVE NEGATIVE Urine Phencyclidine Screen NEGATIVE NEGATIVE Urine Amphetamines Screen NEGATIVE NEGATIVE Urine Methamphetamines Screen NEGATIVE NEGATIVE Urine Benzodiazepines Screen POSITIVE H NEGATIVE Urine Cocaine Screen NEGATIVE NEGATIVE Urine Cannabinoids Screen NEGATIVE NEGATIVE Micro Results Microbiology 05/08/19 Influenza Types A,B Antigen (YOLIE) - Final, Complete My Orders Orders - BRADY HOFFMAN MD Ct Head/Cervical Spine Wo (05/08/19 18:35) Cbc With Automated Diff (05/08/19 18:35) Comprehensive Metabolic Panel (05/08/19 18:35) Magnesium (05/08/19 18:35) Troponin I (05/08/19 18:35) Ua Culture If Indicated (05/08/19 18:35) Influenza A And B Antigens (05/08/19 18:35) Ed Iv/Invasive Line Start (05/08/19 18:35) Ekg Tracing (05/08/19 18:35) Monitor-Rhythm Ecg Trace Only (05/08/19 18:35) Chest 1 View, Ap/Pa Only (05/08/19 18:35) Pelvis (05/08/19 18:35) Knee, Left, 3 Views (05/08/19 18:35) Drug Screen Stat (Urine) (05/08/19 18:40) Ns Iv 1000 Ml (Sodium Chloride 0.9%) (05/08/19 20:02) Ketorolac Injection (Toradol Injection) (05/08/19 20:15) Medications Given in ED Current Medications Medications Dose Ordered Sig/Alannah Route Start Time Stop Time Status Last Admin Dose Admin Ketorolac Tromethamine 15 mg ONCE ONCE IVP 05/08/19 20:15 05/08/19 20:16 DC 05/08/19 20:15 15 MG Vital Signs/I&O 05/08/19 05/08/19 18:27 21:28 Temp 36.3 36.6 Pulse 77 69 Resp 21 18 B/P (MAP) 178/96 (123) 143/69 (123) Pulse Ox 97 O2 Delivery Room Air Room Air 05/09/19 00:00 Intake Total 1000 ml Balance 1000 ml Blood Pressure Mean: 123 Progress Progress Note : Progress Note [employer] device was interrogated and showed no acute cardiac events that would've contributed to her symptoms this evening. Workup was unremarkable except for hyperglycemia. She received a liter of IV fluid. Standing blood pressure was satisfactory before discharge. Patient was able to ambulate freely and independently. Imaging studies were negative for acute injury. Toradol was given for pain prior to dismissal. Initial ECG Impression Date: May 08, 2019 Initial ECG Impression Time: 18:41 Initial ECG Rate: 70 Initial ECG Rhythm: Normal Sinus Comment Sinus rhythm with no ST elevation or depression to suggest ischemia. Left axis deviation. Normal abnormal intervals. Diagnostic Imaging Comments Pelvis x-ray viewed by me and report reviewed. See report below: NAME: BRAYDON ARBOLEDA [facility] REC#: [id number] PT STATUS: REG ER : 1945 PHYSICIAN: BRADY HOFFMAN MD ADMIT DATE: 05/08/19/ER Draft Date of Exam:05/08/19 PELVIS INDICATION: Status post fall. Pain. EXAMINATION: Pelvis, 05/08/2019. FINDINGS: Single view of the pelvis. No fracture. No dislocation. The joint space is fairly well maintained. IMPRESSION: No acute process; however, if patient has continued pain or cannot bear weight further imaging recommended. Dictated on workstation # [id number] Dict: 05/08/191923 Trans: 05/08/191926 [facility] [id number] Interpreted by: SHYANNE NAIR MD Diagonstic Imaging: Xray Plain Films/CT/US/NM/MRI: knee Comments Left knee x-ray viewed by me and report reviewed. See report below: NAME: BRAYDON ARBOLEDA [facility] REC#: [id number] PT STATUS: REG ER : 1945 PHYSICIAN: BRADY HOFFMAN MD ADMIT DATE: 05/08/19/ER Draft Date of Exam:05/08/19 KNEE, LEFT, 3 VIEWS INDICATION: Fall, pain EXAMINATION: Left knee dated 05/08/2019 FINDINGS: Three views of the knee Minimal medial compartment narrowing is noted. No dislocations or acute fractures identified. No joint effusion. IMPRESSION: 1. No acute process. Dictated on workstation # [id number] Dict: 05/08/191922 Trans: 05/08/[address] [place] [address] [id number] Interpreted by: SHYANNE NAIR MD Diagonstic Imaging: Xray Plain Films/CT/US/NM/MRI: chest Comments Chest x-ray viewed by me and report reviewed. See report below: NAME: BRAYDON ARBOLEDA [facility] REC#: [id number] PT STATUS: REG ER : 1945 PHYSICIAN: BRADY HOFFMAN MD ADMIT DATE: 05/08/19/ER Draft Date of Exam:05/08/19 CHEST 1 VIEW, AP/PA ONLY INDICATION: Fall, pain left aspect of the ribs EXAMINATION: Single view chest from 05/08/2019 FINDINGS: Single view of the chest demonstrates a left-sided pacemaker unremarkable in appearance with postoperative change in the cervical spine. The heart is prominent. Pulmonary vasculature is unremarkable. No pneumothorax in the visualized lungs. Portions of the left hemithorax obscured by the pacemaker. No effusions or infiltrates. No displaced fractures appreciated. IMPRESSION: 1. Chronic change. No acute process. Dictated on workstation # [id number] Dict: 05/08/191925 Trans: 05/08/191929 [facility] [phone] Interpreted by: SHYANNE NAIR MD Diagonstic Imaging: CT Plain Films/CT/US/NM/MRI: c-spine Comments CT head and cervical spine viewed by me and report reviewed. See report below: NAME: BRAYDON ARBOLEDA [facility] REC#: [id number] PT STATUS: REG ER : 1945 PHYSICIAN: BRADY HOFFMAN MD ADMIT DATE: 05/08/19/ER Draft Date of Exam:05/08/19 CT HEAD/CERVICAL SPINE WO PROCEDURE: CT head and CT cervical spine without contrast. TECHNIQUE: Multiple contiguous axial images were obtained through the brain and cervical spine without the use of intravenous contrast. Sagittal and coronal reformations through the cervical spine were then performed. Auto Exposure Controls were utilized during the CT exam to meet ALARA standards for radiation dose reduction. INDICATION: Fall, pain EXAMINATION: CT cervical spine, CT brain from 05/08/2019 Comparison to a brain from 11/21/2018 FINDINGS: There is diffuse atrophy especially towards the vertex anteriorly similar to previous imaging. Chronic ischemic disease in a periventricular distribution is noted. No hemorrhage or infarct appreciated. There is no mass, mass effect or midline shift. No hydrocephalus. The osseous structures demonstrate no acute abnormality. The visualized paranasal sinuses and mastoid air cells unremarkable. IMPRESSION: 1. Chronic findings as above. No acute process appreciated. CT cervical spine: There is postoperative change along the C5-C6 levels similar to previous imaging with an anterior plate, intervening screws and an interbody device. Alignment is similar to previous. No subluxations or acute fractures appreciated. The visualized prevertebral soft tissues unremarkable with the lung apices also unremarkable. IMPRESSION: 1. Postoperative change unremarkable in appearance with degenerative findings present. No acute fractures. Dictated on workstation # [id number] Dict: 05/08/191933 Trans: 05/08/191942 [facility] [id number] Interpreted by: SHYANNE NAIR MD Departure Impression Primary Impression: Syncope and collapse Additional Impressions: Neck pain Left knee pain Qualified Codes: M25.562 - Pain in left knee Disposition: 01 HOME, SELF-CARE Condition: Improved Departure-Patient Inst. Decision time for Depature: 21:20 Referrals: NANNETTE REVELES DO (PCP/Family) Primary Care Physician Patient Instructions: Syncope (Fainting) Add. Discharge Instructions: Drink plenty of clear liquids to stay well-hydrated. 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 If you have not had any carotid artery screening performed in the last few years, discuss this with your doctors. Return to care if you have worsening symptoms. You're on multiple sedating medications that may be contributing to your symptoms. Please review your medications with your primary care provider. All discharge instructions reviewed with patient and/or family. Voiced understanding. Copy Copies To 1: NANNETTE REVELES DO Copies To 2: ULI YOO MD FACP FACC CCDS BRADY HOFFMAN MD May 08, 2019 19:22
--- NOTE | 2019-05-08 19:27 | Diagnostic Imaging Report ---
INDICATION: Fall, pain EXAMINATION: Left knee dated 05/08/2019 FINDINGS: Three views of the knee Minimal medial compartment narrowing is noted. No dislocations or acute fractures identified. No joint effusion. IMPRESSION: 1. No acute process. Dictated by: Dictated on workstation # [id number]
--- NOTE | 2019-05-08 19:27 | Diagnostic Imaging Report ---
INDICATION: Status post fall. Pain. EXAMINATION: Pelvis, 05/08/2019. FINDINGS: Single view of the pelvis. No fracture. No dislocation. The joint space is fairly well maintained. IMPRESSION: No acute process; however, if patient has continued pain or cannot bear weight further imaging recommended. Dictated by: Dictated on workstation # [id number]
--- NOTE | 2019-05-08 19:30 | Diagnostic Imaging Report ---
INDICATION: Fall, pain left aspect of the ribs EXAMINATION: Single view chest from 05/08/2019 FINDINGS: Single view of the chest demonstrates a left-sided pacemaker unremarkable in appearance with postoperative change in the cervical spine. The heart is prominent. Pulmonary vasculature is unremarkable. No pneumothorax in the visualized lungs. Portions of the left hemithorax obscured by the pacemaker. No effusions or infiltrates. No displaced fractures appreciated. IMPRESSION: 1. Chronic change. No acute process. Dictated by: Dictated on workstation # [id number]
--- NOTE | 2019-05-08 19:45 | Diagnostic Imaging Report ---
PROCEDURE: CT head and CT cervical spine without contrast. TECHNIQUE: Multiple contiguous axial images were obtained through the brain and cervical spine without the use of intravenous contrast. Sagittal and coronal reformations through the cervical spine were then performed. Auto Exposure Controls were utilized during the CT exam to meet ALARA standards for radiation dose reduction. INDICATION: Fall, pain EXAMINATION: CT cervical spine, CT brain from 05/08/2019 Comparison to a brain from 11/21/2018 FINDINGS: There is diffuse atrophy especially towards the vertex anteriorly similar to previous imaging. Chronic ischemic disease in a periventricular distribution is noted. No hemorrhage or infarct appreciated. There is no mass, mass effect or midline shift. No hydrocephalus. The osseous structures demonstrate no acute abnormality. The visualized paranasal sinuses and mastoid air cells unremarkable. IMPRESSION: 1. Chronic findings as above. No acute process appreciated. CT cervical spine: There is postoperative change along the C5-C6 levels similar to previous imaging with an anterior plate, intervening screws and an interbody device. Alignment is similar to previous. No subluxations or acute fractures appreciated. The visualized prevertebral soft tissues unremarkable with the lung apices also unremarkable. IMPRESSION: 1. Postoperative change unremarkable in appearance with degenerative findings present. No acute fractures. Dictated by: Dictated on workstation # [id number]
[2019-05-08 19:47] LABS: BILIRUBIN,URINE NEGATIVE (NEGATIVE); CLARITY,URINE CLEAR; COLOR,URINE YELLOW; GLUCOSE, URINE (UA) 2+ (NEGATIVE); KETONES,URINE 1+ (NEGATIVE); LEUKOCYTE ESTERASE ,URINE NEGATIVE (NEGATIVE); NITRITE,URINE NEGATIVE (NEGATIVE); PROTEIN,URINE NEGATIVE (NEGATIVE)
[2019-05-08 19:56] LABS: BACTERIA,URINE TRACE /HPF; SQUAMOUS EPITHELIAL CELL,UR 0-2 /HPF
[2019-05-08] MEDS ORDERED: NS IV 1000 ML 1,000 ML IV SCH (20:02)
[2019-05-08 20:03] LABS: AMPHETAMINE SCREEN, URINE NEGATIVE (NEGATIVE); BARBITURATE SCREEN URINE NEGATIVE (NEGATIVE); BENZODIAZEPINES SCREEN URINE POSITIVE (NEGATIVE); CANNABINOID SCREEN, URINE NEGATIVE (NEGATIVE); COCAINE SCREEN URINE NEGATIVE (NEGATIVE); METHADONE STAT NEGATIVE (NEGATIVE); METHAMPHETAMINE SCREEN URINE S NEGATIVE (NEGATIVE); OPIATE SCREEN URINE NEGATIVE (NEGATIVE); OXYCODONE STAT NEGATIVE (NEGATIVE); PROPOXYPHENE STAT NEGATIVE (NEGATIVE); TRICYCLIC ANTIDEPRESSANTS SCRE NEGATIVE (NEGATIVE)
[2019-05-08] MEDS ORDERED: KETOROLAC 30 MG/ML VIAL IVP ONE (20:15)
[2019-05-08 21:28] VITALS: BP 143/69
== END 2019-05-08 21:28 | disposition home or self-care (01) ==
LOC: EDUNIT# 18:18 → ER 18:19
DX: M54.2 Cervicalgia (principal); M25.562 Pain in left knee; R55 Syncope and collapse; J44.9 Chronic obstructive pulmonary disease, unspecified; I10 Essential (primary) hypertension; E11.42 Type 2 diabetes mellitus with diabetic polyneuropathy; K21.9 Gastro-esophageal reflux disease without esophagitis; I25.10 Atherosclerotic heart disease of native coronary artery without angina pectoris; F41.9 Anxiety disorder, unspecified; F32.9 Major depressive disorder, single episode, unspecified; Z79.01 Long term (current) use of anticoagulants; Z79.4 Long term (current) use of insulin; Z77.22 Contact with and (suspected) exposure to environmental tobacco smoke (acute) (chronic); Z95.810 Presence of automatic (implantable) cardiac defibrillator; Z88.0 Allergy status to penicillin; Z88.2 Allergy status to sulfonamides; Z88.6 Allergy status to analgesic agent; Z88.8 Allergy status to other drugs, medicaments and biological substances; Z82.49 Family history of ischemic heart disease and other diseases of the circulatory system; W18.39XA Other fall on same level, initial encounter; Y92.000 Kitchen of unspecified non-institutional (private) residence as the place of occurrence of the external cause
CPT/HCPCS: 36415; 70450; 71045; 72125; 72170; 73562; 80053; 80306; 81000; 83735; 84484; 85025; 87804; 93005; 93041

== ENCOUNTER → 2019-05-13 | Outpatient (CLI) | payer MEDICARE ==
--- NOTE | 2019-05-13 11:52 | Diagnostic Imaging Report ---
PROCEDURE: CT chest without contrast. TECHNIQUE: Multiple contiguous axial images were obtained through the chest without the use of intravenous contrast. Auto Exposure Controls were utilized during the CT exam to meet ALARA standards for radiation dose reduction. INDICATION: Cough, bronchospasm. COMPARISON: July 18, 2018 and radiographs from May 08, 2019 and April 25, 2019. FINDINGS: Pacer device is present with the battery pack overlying the left chest. No pathologically enlarged lymph nodes within the chest. No aneurysmal dilatation of the thoracic aorta. The heart is within normal limits in size. No pericardial effusion. No pleural effusion. No pneumothorax. Sub-4 mm bilateral pulmonary nodules are present, appearing similar to the prior exam. Minimal scarring within the lung bases. The lungs are otherwise clear. The trachea is patent. Fatty infiltration of the liver. Fatty infiltration of the pancreas. Cholecystectomy. Nonobstructing right renal calculus. Vertebroplasty changes within a chronically compressed lower thoracic vertebral body. Postsurgical changes within the cervical spine. No acute osseous abnormality. IMPRESSION: Nonobstructing right renal calculus. Stable sub-4 mm bilateral pulmonary nodules. If patient is at high risk for lung cancer, a follow-up CT of the chest is recommended in one year. If patient is at low risk for lung cancer, no definitive follow-up of these pulmonary nodules is necessary. Fatty infiltration of the liver and pancreas. Dictated by: Dictated on workstation # [id number]
== END ==
LOC: RAD 10:20
PROVIDERS: ATTEND Family Medicine
DX: J98.01 Acute bronchospasm (principal); N20.0 Calculus of kidney; R91.8 Other nonspecific abnormal finding of lung field; K76.0 Fatty (change of) liver, not elsewhere classified; K86.89 Other specified diseases of pancreas; Z90.49 Acquired absence of other specified parts of digestive tract; Z95.0 Presence of cardiac pacemaker
CPT/HCPCS: 71250

== ENCOUNTER 2019-06-23 17:29 | Emergency (ER) | payer MEDICARE ==
[~2019-06-23] VITALS: Ht 160 cm; Wt 102.0 kg
[~2019-06-23 17:29] MED LIST changes: +MELA3TAB39 PO; -MELA3TAB65 PO; -SENN-141 PO; +SENN-234 PO
--- OUTSIDE RECORDS SUMMARY | 2019-06-23 17:37 | XMS REPORT | Clinical Summary ---
Author Author [facility] Organization [facility] Address Unknown Phone Unavailable Care Team Providers Care Probate Clerk Name Role Phone Belia Reid MD PCP Source Comments Some departments are not documenting in the electronic medical record. If you d o not see the information that you expected, contact Release of Information in [facility] [employer] Information Management department at [phone] for further assistan ce in locating additional records.[facility] Allergies Comments Active Allergy Reactions Severity Noted Date Is ok to take 81mg asa Aspirin STOMACH Low 06/22/2016 UPSET, SEE COMMENTS Sumatriptan Succinate ANXIETY Low 06/23/19 17 Penicillins RASH, ITCHING Medium 06/22/2016 Sulfa (Sulfonamide [...] (ESTRACE) 0.01 Insert or 42.5 g 11 0 % (0.1 mg/g) vaginal Apply to 7 [...] extended release tablet mouth daily with dinner. Additional Information Patient taking differently: 500 mg Oral DAILY WITH DINNER, Reported on 11/13/2017 12:52 PM Active Blood-Glucose Calibrat Use as 1 each 3 Control cmpkIndications: directed 8 Uncontrolled type 2 diabetes mellitus with hyperglycemia (HCC) Active ACCU-CHEK COMPACT TEST Use 1 each as 100 strip 3 1 strpIndications: type 2 directed 8 diabetes mellitus daily. Active blood-glucose meter kit Use 1 strip 1 kit 0 as directed 8 twice daily. E11.[address] Carrillo Active Blood Glucose Control Use to test 1 each 1 02/01 High&Low soln accuracy of 8 glucometer Active Alcohol Swabs (BD SINGLE Use as 200 each 2 1 USE SWABS REGULAR) directed with 8 padmIndications: blood sugar Uncontrolled type 2 checks diabetes mellitus with hyperglycemia (HCC) Active lancets MISC Use one each 200 each 2 as directed 8 twice daily. Active insulin pen needles Use one each 100 each 3 03/18 (disposable) (BD UF TETO as directed 9 PEN NEEDLES) 32 gauge x daily. Use 5/32" pen with insulin needleIndications: type 2 injections. [...] enacarbil 300 Take one 90 tablet 3 0 mg TbER tablet by 9 mouth at bedtime daily. Active LANTUS SOLOSTAR U-100 INJECT 38 45 mL 6 09/02 INSULIN 100 unit/mL (3 UNITS 9 mL) injection PEN SUBCUTANEOUSL Y EVERY DAY Active ACCU-CHEK SMARTVIEW TEST TEST TWICE 200 strip 2 1 STRIP test strip DAILY 9 DIRECTED Active Problems Problem Noted Date Type 2 diabetes mellitus with hyperglycemia, without long-term current use 07/12/2017 of insulin Slow urinary stream 08/24/2016 Overview: History of ER evaluation for Hopper cath eter placement Recent increased S&S 08/22/16 04/01/17 PVR 7cc L ast Assessment & Plan: Continue to manage constipation- contin ue Citrucel and Miralax PRN Discontinue CIC - low residuals recentl y Kidney stones 08/24/2016 Overview: -- 10/15/16: Metal Turner evaluation non-obstruct ing stone. CT shows a 4.6 mm non-obstructing renal calculus. Hx of c hronic back pain. Follows w/ Dr. Benavides for persistent LUTS. UDS sh ows large bladder capacity, adequate emptying, and +DO w/ leak. L ast Assessment & Plan: Per Dr Rascon - keep FU plan Recurrent UTI 06/22/2016 Overview: Recurrent UTIs, frequency, urgency 10/01/16: UDS which showed a large capac ity, emptying, +DO with large leak Non-compliance with estrace, cic, antic holinergic and DM control L ast Assessment & Plan: - emphasized need for DM control - needs compliance with reduction caffe ine and excess fluid intake - needs compliance [...] Used Never Smoker Smokeless Tobacco: Never Used Drinks/Week oz/Week Comments Alcohol Use 0 Standard drinks or equivalent 0.0 No Sex Assigned at Date Recorded Not on file Industry Job Start Date Occupation Not on file Not on file Not on file Travel End Travel History Travel Start No recent travel history available. Last Filed Vital Signs Reading Time Taken Comments Vital Sign 145/71 03/20/2018 12:54 PM [employer] Blood Pressure 64 03/20/2018 12:54 PM [employer] Pulse - - Temperature - - Respiratory Rate - - Oxygen Saturation - - Inhaled Oxygen Concentration 97.9 kg (215 lb 14.4 oz) 03/20/2018 12:54 PM [employer] Weight 164.6 cm (5' 4.8") 03/20/2018 12:54 PM [employer] Height 36.15 03/20/2018 12:54 PM [employer] Body Mass Index Plan of Treatment Health Maintenance Due Date Last Done Comments MEDICARE ANNUAL WELLNESS 1945 VISIT DILATED EYE EXAM 1964 DTAP/TDAP VACCINES (1 - 1964 Tdap) HEPATITIS C SCREENING 1964 MICROALBUMIN 1964 PHYSICAL (COMPREHENSIVE) 1964 EXAM BREAST CANCER SCREENING 1986 COLORECTAL CANCER 1996 SCREENING SHINGLES RECOMBINANT 1996 VACCINE (1 of 2) OSTEOPOROSIS 06/16/2011 SCREENING/MONITORING PNEUMONIA (PCV13/PPSV23) 06/16/2011 VACCINES (1 of 2 - PCV13) HBA1C 05/13/2018 11/13/2017, 07/12/2017, 04/01/2017, Additional history exists FOOT EXAM 03/20/2019 03/20/2018 INFLUENZA VACCINE 10/03/2019 11/14/2017 Goals Goal Patient Associated Recent Progress Patient-Stat Aut hor Goal Type Problems ed? HEMOGLOBIN A1C < 7.5 Result 9.9 (04/01/2017 Leonela antoine, Component 10:37 AM [employer]) Calvin Minor APRN-POLE SHAVER Results Not on filefrom Last 3 Months Insurance Type Payer Benefit Subscriber ID Effective Phone Address Plan / Dates Group Medicare HUMANA MEDICARE HUMANA xxxxxxxxx [id number] CHOICE PPO resent Advance Directives Patient Package Yarns Drying Machine Operator Explanation Type Date Recorded Advance Directive/DPOA
--- OUTSIDE RECORDS SUMMARY | 2019-06-23 17:37 | XMS REPORT | Encounter Summary ---
Author Author [facility] Organization [facility] Address Unknown Phone Unavailable Care Team Providers Care Size Cutter Name Role Phone Belia Reid MD PCP Reason for Visit * Reason Comments Medication Refill Encounter Details Care Team Description Date Type Department Calvin Tripp APRN-CNS [address] [facility] [address] [place] [address] [phone] 01/01/2019 Refill [facility] [address] [place] [address] Social History Date Tobacco Use Types Packs/Day [...] 9.9 (04/01/2017 Leonela antoine, Component 10:37 AM [employer]) MANUEL Horan documented as of this encounter Visit Diagnoses Not on filedocumented in this encounter
--- OUTSIDE RECORDS SUMMARY | 2019-06-23 17:37 | XMS REPORT | Encounter Summary ---
Author Author [facility] Organization [facility] Address Unknown Phone Unavailable Care Team Providers Care Network Security Engineer Name Role Phone Belia Reid MD PCP Reason for Visit * Reason Comments Medication Refill Encounter Details Care Team Description Date Type Department Calvin Tripp APRN-CNS [address] [facility] [address] [place] [address] [phone] Uncontrolled type 2 diabetes mellitus wi th hyperglycemia (HCC) 03/19/2019 Refill [facility] [address] [place] [address] Social History Date Tobacco Use Types Packs/Day [...] A1C < 7.5 Result 9.9 (04/01/2017 No Conchis antoine, Component 10: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
--- OUTSIDE RECORDS SUMMARY | 2019-06-23 17:40 | XMS REPORT | CCD ---
Author Author Diana Reid D.O. Organization [facility] Address [address] [place] [address] Phone Care Team Providers Care Health Insurance Sales Agent Name Role Phone Belia Reid D.O., PP Unavailable CCM Unavailable Summary Purpose Interface Exchange Insurance Providers Payer name Policy type / Coverage type Covered constitution party ID Effective Begin Date Effective End Date [employer] MEDICARE Medicare Part B [id number] 2019 Unknown Family History Family History data not found Social History Social History Element Codes Description Effective Dates Tobacco history SNOMED CT: 322737507 Nonsmoker 09/13/2010 Allergies, Adverse Reactions, Alerts Substance Reaction Codes Entered Date Inactivated Date Status Eggs reaction [id number] 09/15/2015 No Inactive Date Active _ Unknown 01/07/2019 No Inactive Date Active PENICILLINS Unknown 01/07/2019 No Inactive Date Active SULFA (SULFONAMIDES) rash Unknown 11/02/2010 No Inactive Mike e Active Problems Condition Codes Effective Dates Condition Status Acute bronchitis ICD-9: 466.0 ICD-10: J20.9 07/19/2017 Active Colitis ICD-9: 558.9 ICD-10: K52.9 05/26/2019 Active Abdominal bloating ICD-9: 787.3 ICD-10: R14.0 06/08/2019 Active Diarrhea ICD-9: 787.91 ICD-10: R19.7 06/24/2012 Active Acute febrile illness ICD-9: 780.60 ICD-10: R50.9 05/26/2019 Active Chronic obstructive pulmonary disease, unspecified ICD -9: 496 ICD-10: J44.9 09/14/2015 Active Intermittent stridor ICD-9: 786.1 ICD-10: R06.1 05/02/2016 Active Muscle weakness ICD-9: 728.87 ICD-10: M62.81 05/13/2019 Active Pulmonary fibrosis ICD-9: 515 ICD-10: J84.10 05/13/2019 Active COUGH ICD-9: 786.2 ICD-10: R05 02/28/2016 Active Muscle, jerky movements (uncontrolled) ICD-9: 333.5 ICD-10: G25.5 04/29/2019 Active Flank pain ICD-9: 789.09 ICD-10: R10.9 12/04/2015 Active Upper respiratory infection ICD-9: 465.9 ICD-10: J06.9 04/16/2019 Active Weight gain ICD-9: 783.1 ICD-10: R63.5 04/16/2019 Active Generalized pruritus ICD-9: 698.9 ICD-10: L29.9 08/20/2018 Active Migraine, unspecified, not intractable, without status migrainosus ICD-9: 346.90 ICD-10: G43.909 08/04/2013 Active Acute bursitis of left shoulder ICD-9: 726.10 ICD-10: M75.52 01/22/2019 Active Cervicalgia ICD-9: 723.1 ICD-10: M54.2 10/08/2016 Active Chest wall pain ICD-9: 786.52 ICD-10: R07.89 01/22/2019 Active Abdominal pain ICD-9: 789.00 ICD-10: R10.9 01/07/2019 Active Pyelonephritis ICD-9: 590.80 ICD-10: N12 01/07/2019 Active FLU VACCINE ICD-9: V04.81 ICD-10: Z23 01/04/2016 Active Left lower quadrant pain ICD-9: 789.04 ICD-10: R10.32 12/24/2018 Active Left lumbar radiculopathy ICD-9: 724.4 ICD-10: M54.16 12/24/2018 Active Low back pain ICD-9: 724.2 ICD-10: M54.5 10/08/2016 Active Fibromyalgia ICD-9: 729.1 ICD-10: M79.7 08/04/2013 Active Acute sinusitis, unspecified ICD-9: 461.9 ICD-10: J01.90 11/04/2018 Active Migraine, unspecified, intractable, without status puneet rainosus ICD-9: 346.91 ICD-10: G43.919 02/01/2016 Active Encounter for general adult medical examination withou t abnormal findings ICD-9: V70.9 ICD-10: Z00.00 09/18/2018 Active Essential (primary) hypertension ICD-9: 401.9 ICD-10: I10 06/09/2018 Active Type 2 diabetes mellitus with hyperglycemia ICD-9: 250 .02 ICD-10: E11.65 07/04/2015 Active Type 2 diabetes mellitus with diabetic neuropathy, uns pecified ICD-9: 250.60 ICD-10: E11.40 09/18/2018 Active Vitamin D deficiency, unspecified ICD-9: 268.9 ICD-10: E55.9 09/18/2018 Active Other dorsalgia ICD-9: 724.5 ICD-10: M54.89 09/08/2018 Active Pain in left wrist ICD-9: 719.43 ICD-10: M25.532 09/08/2018 Active Acute stress reaction ICD-9: 308.9 ICD-10: F43.0 08/20/2018 Active 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, UNCONTROLLED ICD-9: 250.03 ICD-10: E10.9 08/20/2018 Active Hypotension due to drugs ICD-9: 458.8 ICD-10: I95.2 06/19/2018 Active Localized edema ICD-9: 782.3 ICD-10: R60.0 12/20/2016 Active Paroxysmal atrial fibrillation ICD-9: 427.31 ICD-10: I48.0 06/19/2018 Active Generalized hyperhidrosis ICD-9: 780.8 ICD-10: R61 06/09/2018 Active Supraventricular tachycardia ICD-9: 785.0 ICD-10: I47.1 06/09/2018 Active Pneumonia, unspecified organism ICD-9: 486 ICD-10: J18.9 01/23/2017 Active Dependence on supplemental oxygen ICD-9: V46.2 ICD-10: Z99.81 05/21/2018 Active Supraventricular tachycardia ICD-9: 427.89 ICD-10: I47.1 05/21/2018 Active Weakness ICD-9: 780.79 ICD-10: R53.1 05/21/2018 Active Cervical disc disorder with radiculopathy, unspecified cervical region ICD-9: 722.0 ICD-10: M50.10 04/16/2018 Active Dysuria ICD-9: 788.1 ICD-10: R30.0 03/17/2018 Active Hematuria, unspecified ICD-9: 599.70 ICD-10: R31.9 10/04/2015 Active Chronic obstructive pulmonary disease with (acute) exa cerbation ICD-9: 491.21 ICD-10: J44.1 10/25/2015 Active Chronic obstructive pulmonary disease with acute lower respiratory infection ICD-9: 496 ICD-10: J44.0 07/04/2015 Active Erythema intertrigo ICD-9: 695.89 ICD-10: L30.4 03/06/2018 Active Mild intermittent asthma with (acute) exacerbation ICD -9: 466.0 ICD-10: J45.21 03/01/2014 Active Candidiasis of skin and nail ICD-9: 112.3 ICD-10: B37.2 01/20/2018 Active Pain in thoracic spine ICD-9: 724.1 ICD-10: M54.6 12/04/2015 Active Radiculopathy, thoracic region ICD-9: 724.4 ICD-10: M54.14 12/25/2017 Active Other muscle spasm ICD-9: 728.85 ICD-10: M62.838 12/17/2017 Active PNEUMOCOCCAL VACCINE ICD-9: V03.82 ICD-10: Z23 12/20/2016 Active Essential (primary) hypertension ICD-9: 401.1 ICD-10: I10 06/05/2017 Active Confusional arousals ICD-9: 327.41 ICD-10: G47.51 09/17/2017 Active Encounter for routine child health examination without abnormal findings ICD-9: V20.2 ICD-10: Z00.129 09/17/2017 Active Encounter for screening for osteoporosis ICD-9: V82.81 ICD-10: Z13.820 07/19/2017 Active Encounter for screening mammogram for malignant neopla sm of breast ICD-9: V76.11 ICD-10: Z12.31 07/19/2017 Active Urinary tract infection, site not specified ICD-9: 599 .0 ICD-10: N39.0 07/03/2013 Active Rash and other nonspecific skin eruption ICD-9: 782.1 ICD-10: R21 05/29/2017 Active Tinea corporis ICD-9: 110.5 ICD-10: B35.4 05/07/2017 Active Tinea cruris ICD-9: 110.3 ICD-10: B35.6 05/07/2017 Active Follicular disorder, unspecified ICD-9: 704.8 ICD-10: L73.9 12/28/2014 Active Primary insomnia ICD-9: 780.52 ICD-10: F51.01 09/19/2016 Active Generalized abdominal pain ICD-9: 789.00 ICD-10: R10.84 08/04/2013 Active Personal history of urinary (tract) infections ICD-9: V13.02 ICD-10: Z87.440 06/04/2016 Active Cystitis, unspecified without hematuria ICD-9: 595.9 ICD-10: N30.90 05/02/2016 Active Other specified diseases of intestine ICD-9: 569.89 ICD-10: K63.89 05/02/2016 Active Unspecified asthma, uncomplicated ICD-9: 493.90 ICD-10: J45.909 10/05/2013 Active Chronic pain syndrome ICD-9: 338.4 ICD-10: G89.4 01/05/2016 Active Encounter for general adult medical examination with a bnormal findings ICD-9: V70.0 ICD-10: Z00.01 01/04/2016 Active Hemiplegic migraine, intractable, 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 ICD-9: 346.31 ICD-10: G43.419 01/04/2016 Active Polyneuropathy, unspecified ICD-9: 355.9 ICD-10: G62.9 12/23/2013 Active Type 2 diabetes mellitus with diabetic neuropathic art hropathy ICD-9: 250.60 ICD-10: E11.610 08/04/2013 Active Type 2 diabetes mellitus with other diabetic kidney co mplication ICD-9: 250.00 ICD-10: E11.29 04/01/2014 Active Other intervertebral disc degeneration, lumbar region ICD-9: 722.52 ICD-10: M51.36 02/09/2014 Active Chronic fatigue, unspecified ICD-9: 780.71 ICD-10: R53.82 08/24/2015 Active Disorientation, unspecified ICD-9: 298.9 ICD-10: R41.0 08/23/2015 Active Headache ICD-9: 784.0 ICD-10: R51 08/24/2015 Active Paresthesia of skin ICD-9: 782.0 ICD-10: R20.2 08/23/2015 Active Functional dyspepsia ICD-9: 536.8 ICD-10: K30 01/28/2012 Active Glycosuria ICD-9: 791.5 ICD-10: R81 03/29/2015 Active Gastro-esophageal reflux disease without esophagitis I CD-9: 530.81 ICD-10: K21.9 12/04/2013 Active Other specified noninflammatory disorders of vagina IC D-9: 623.8 ICD-10: N89.8 12/28/2014 Active 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 09/01/2014 Active Weakness on left side of face ICD-9: 781.94 08/24/2014 Ac tive Cervical radiculopathy ICD-9: 723.4 04/01/2014 Active Cervicalgia ICD-9: 723.1 04/01/2014 Active Degenerative disc disease, cervical ICD-9: 722.4 04/01/2014 Active 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I ICD-9: 250.00 04/01/2014 Acti ve BRONCHITIS, ACUTE ICD-9: 466.0 03/01/2014 Active WHEEZING ICD-9: 786.07 03/01/2014 Active ARTHRALGIA-MULTIPLE SITES ICD-9: 719.49 02/09/2014 Active LUMB/LUMBOSAC DISC DEGEN ICD-9: 722.52 02/09/2014 Active Neuropathy ICD-9: 355.9 12/23/2013 Active Peptic ulcer disease ICD-9: 533.90 12/23/2013 Active RESTLESS LEGS SYNDROME ICD-9: 333.94 12/23/2013 Active GERD ICD-9: 530.81 12/04/2013 Active ASTHMA NOS ICD-9: 493.90 10/05/2013 Active Brachioradial pruritus ICD-9: 698.9 10/05/2013 Active INFLAMED SEBORR KERATOS ICD-9: 702.11 10/05/2013 Active - I - FIBROMYALGIA ICD-9: 729.1 08/04/2013 Active Diabetic peripheral neuropathy ICD-9: 250.60 08/04/2013 A ctive DIZZINESS/VERTIGO ICD-9: 780.4 08/04/2013 Active Flank pain ICD-9: 789.00 08/04/2013 Active HYPERTENSION ICD-9: 401.9 08/04/2013 Active MIGRAINE NOS/NOT INTRCBL ICD-9: 346.90 08/04/2013 Active ALLERGIC RHINITIS ICD-9: 477.9 07/13/2013 Active URINARY TRACT INFECTION ICD-9: 599.0 07/03/2013 Active Hypertension Unknown 05/27/2013 Active URINARY INCONTINENCE ICD-9: 788.30 05/27/2013 Active Vitamin B12 deficiency ICD-9: 266.2 04/17/2013 Active URINARY RETENTION ICD-9: 788.20 11/10/2012 Active Loss of consciousness ICD-9: 780.09 07/21/2012 Active Tachycardia ICD-9: 785.0 07/21/2012 Active DIARRHEA ICD-9: 787.91 06/24/2012 Active POSTTRAUMATIC STRESS DISORDER ICD-9: 309.81 05/08/2012 Ac tive TREMOR NEC ICD-9: 333.1 05/08/2012 Active DYSPEPSIA ICD-9: 536.8 01/28/2012 Active JOINT PAIN-SHLDER ICD-9: 719.41 09/12/2011 Active Ataxia ICD-9: 781.3 08/15/2011 Active CONCUSSION ICD-9: 850.9 08/15/2011 Active Lipoma ICD-9: 214.9 08/09/2011 Active Subacromial bursitis ICD-9: 726.19 08/09/2011 Active Arm pain ICD-9: 729.5 07/03/2011 Active Clostridium difficile colitis ICD-9: 008.45 07/03/2011 Ac tive Muscle cramp ICD-9: 729.82 06/04/2011 Active Hypotension ICD-9: 458.9 01/02/2011 Active MALAISE AND FATIGUE ICD-9: 780.79 01/02/2011 Active Syncopal episodes ICD-9: 780.2 01/02/2011 Active Intertrigo ICD-9: 695.89 12/07/2010 Active PALPITATIONS ICD-9: 785.1 11/16/2010 Active ANXIETY STATE NOS ICD-9: 300.00 10/18/2010 Active SPASM OF MUSCLE ICD-9: 728.85 09/06/2010 Active Chronic back pain ICD-9: 724.5 08/10/2010 Active Chronic pain syndrome ICD-9: 338.4 08/10/2010 Active SINUSITIS, ACUTE ICD-9: 461.9 05/11/2010 Active THROMBOPHLEBITIS ICD-9: 451.9 05/11/2010 Active CEPHALGIA ICD-9: 784.0 04/06/2010 Active CHEST PAIN NOS ICD-9: 786.50 04/06/2010 Active Dementia of the Alzheimer's type, with early onset, wi th depressive mood ICD-9: 290.13 04/06/2010 Active DYSPNEA ICD-9: 786.09 04/06/2010 Active INSOMNIA NOS ICD-9: 780.52 01/05/2010 Active Tinea cruris ICD-9: 110.3 01/05/2010 Active Compression fx, thoracic spine ICD-9: 805.2 10/24/2009 A ctive MUSCLE WEAKNESS-GENERAL ICD-9: 728.87 10/24/2009 Active CELLULITIS ICD-9: 682.9 07/25/2009 Active DERMATITIS NOS ICD-9: 692.9 07/25/2009 Active _ Unknown 05/26/2009 Active Allergic rhinitis Unknown 05/26/2009 Active Depression Unknown 05/26/2009 Active ABNORMALITY OF GAIT ICD-9: 781.2 05/26/2009 Active Dementia Unknown 04/28/2009 Active Fibromyalgia Unknown 04/28/2009 Active Migraine Unknown 04/28/2009 Active Medications Medication Codes Instructions Start Date Stop Date Status Fill Instructions Levaquin 500 mg tablet RxNorm: 577150 1 Tablet(s) Oral QD 06/16/2019 06/23/2019 Active Flagyl 500 mg tablet RxNorm: 844540 1 Tablet(s) Oral three time s a day 06/16/2019 06/23/2019 Active Vancocin 125 mg capsule RxNorm: 228827 1 Capsule(s) Oral four t imes a day 06/08/2019 06/18/2019 Active diltiazem CD 240 mg capsule,extended release 24 hr RxNorm: 8 00844 1 Capsule(s) Oral QD 05/26/2019 11/21/2019 Active omeprazole 40 mg capsule,delayed release RxNorm: 892483 1 Capsule(s) Oral two times a day 05/26/2019 11/21/2019 Active Flagyl 500 mg tablet RxNorm: 353470 1 Tablet(s) Oral three time s a day 05/26/2019 06/05/2019 Inactive Cipro 250 mg tablet RxNorm: 332866 1 Tablet(s) Oral two times a day 05/26/2019 06/02/2019 Inactive hydroxyzine HCl 25 mg tablet RxNorm: 192408 1 Tablet(s) Oral QPM for itching/aniety 05/21/2019 06/27/2019 Active metoprolol tartrate 25 mg tablet RxNorm: 943461 1 Table t(s) Oral two times a day 05/21/2019 08/19/2019 Active hydroxyzine HCl 25 mg tablet RxNorm: 600339 1 Tablet(s) Oral QPM for itching/aniety 05/13/2019 05/20/2019 Inactive Singulair 10 mg tablet RxNorm: 991410 1 Tablet(s) Oral QPM 05/06/1905/12/2019 Inactive gabapentin 600 mg tablet RxNorm: 976961 1 Tablet(s) Oral QD 020 06/05/2019 Inactive Valium 5 mg tablet RxNorm: 148449 1 Tablet(s) Oral QPM for stri joao/muscle spasm 04/29/2019 05/29/2019 Inactive baclofen 10 mg tablet RxNorm: 392329 1 Tablet(s) Oral QPM for s pasm/neck pain 04/24/2019 05/23/2019 Inactive baclofen 10 mg tablet RxNorm: 007589 1 Tablet(s) Oral QPM for s pasm/neck pain 04/24/2019 04/23/2019 Inactive Novolin N NPH U-100 Insulin isophane 100 unit/mL subcu taneous susp RxNorm: 439475 23 Unit(s) Subcutaneous two times a day 04/20/2019 No Stop Date A ctive cyclobenzaprine 5 mg tablet RxNorm: 794807 1 Tablet(s) Oral three times a day as needed 04/16/2019 04/23/2019 Inactive hydroxyzine HCl 25 mg tablet RxNorm: 313837 1 Tablet(s) Oral three times a day for itching/aniety 04/08/2019 05/12/2019 Inactive gabapentin 600 mg tablet RxNorm: 311489 1 Tablet(s) Oral two ti mes a day 04/08/2019 05/05/2019 Inactive gabapentin 600 mg tablet RxNorm: 756334 1 Tablet(s) Oral two ti mes a day 04/08/2019 04/07/2019 Inactive Novolin N NPH U-100 Insulin isophane 100 unit/mL subcu taneous susp RxNorm: 552652 10 Unit(s) Subcutaneous two times a day 03/03/2019 04/19/2019 I nactive gabapentin 300 mg capsule RxNorm: 031610 1 Capsule(s) O ral every night at bedtime for neuropathy 02/26/2019 04/07/2019 Inactive gabapentin 300 mg capsule RxNorm: 955976 1 Capsule(s) O ral every night at bedtime for neuropathy 02/20/2019 02/25/2019 Inactive pramipexole 1 mg tablet RxNorm: 813408 1 Tablet(s) Oral QPM FOR RESTLESS LEGS (REPLACES REQUIP) 02/12/2019 02/07/2020 Active buspirone 5 mg tablet RxNorm: 956269 TAKE 1 TABLET THREE TIMES MILDRED Y 02/12/2019 05/12/2019 Inactive Lexapro 10 mg tablet RxNorm: 090034 TAKE 1 TABLET EVERY DAY FOR MOO D 01/31/2019 No Stop Date Active Ativan 0.5 mg tablet RxNorm: 326197 TAKE 1 TABLET BY MO UT THREE TIMES DAILY NEEDED FOR ANXIETY 01/26/2019 04/28/2019 Inactive Ativan 0.5 mg tablet RxNorm: 435441 TAKE 1 TABLET BY MO UTH THREE TIMES DAILY NEEDED FOR ANXIETY 01/05/2019 01/05/2019 Inactive Levaquin 500 mg tablet RxNorm: 847577 1 Tablet(s) Oral QD 12/25/2018 12/24/2018 Inactive Levaquin 500 mg tablet RxNorm: 811795 1 Tablet(s) Oral QD 12/25/2018 01/04/2019 Inactive baclofen 10 mg tablet RxNorm: 684212 1 Tablet(s) Oral three maico es a day 11/20/2018 01/19/2019 Inactive Ativan 0.5 mg tablet RxNorm: 014514 TAKE 1 TABLET BY MO UTH THREE TIMES DAILY NEEDED FOR ANXIETY 11/20/2018 01/04/2019 Inactive gabapentin 300 mg capsule RxNorm: 775832 1 Capsule(s) O ral every night at bedtime for neuropathy 11/20/2018 12/20/2018 Inactive Lexapro 10 mg tablet RxNorm: 335606 1 Tablet(s) PO QD for mood 07/201801/30/2019 Inactive Zithromax Z-Lj 250 mg tablet RxNorm: 340095 Tablet(s) PO take as directed 11/04/2018 11/19/2018 Inactive Insulin Syringe 1 mL 29 gauge x 1/2" RxNorm: 2 s yringes daily with insulin Dx: E11.65 10/08/2018 No Stop Date Active gabapentin 300 mg capsule RxNorm: 012389 1 Capsule(s) PO QHS fo r neuropathy 09/18/2018 10/17/2018 Inactive cyclobenzaprine 5 mg tablet RxNorm: 958572 1 Tablet(s) PO TID a s needed 09/09/2018 09/08/2018 Inactive cyclobenzaprine 5 mg tablet RxNorm: 350084 1 Tablet(s) PO TID a s needed 09/09/2018 10/08/2018 Inactive prednisone 20 mg tablet RxNorm: 093317 1 Tablet(s) PO QD 09/08/2018 0 09/12/2018 Inactive Lantus Solostar U-100 Insulin 100 unit/mL (3 mL) subcu taneous pen RxNorm: 124715 55 Unit(s) SQ QAM 08/28/2018 11/03/2018 Inactive hydroxyzine HCl 25 mg tablet RxNorm: 974208 1 Tablet(s) PO QHS for itching 08/20/2018 05/12/2019 Inactive Lexapro 10 mg tablet RxNorm: 217265 1 Tablet(s) PO QD for mood 08/0210/18/2018 Inactive sumatriptan 100 mg tablet RxNorm: 246721 1 Tablet(s) PO at headache onset. May repeat 1 in two hours if headache remains. Max of 2 per 24 hours 04/02/2018 05/20/2018 Inactive Diflucan 150 mg tablet RxNorm: 240884 1 Tablet(s) PO QD 03/18/2018 Inactive Diflucan 150 mg tablet RxNorm: 389903 1 Tablet(s) PO QD 03/18/2018 Inactive Flagyl 500 mg tablet RxNorm: 994867 1 Tablet(s) PO TID 03/17/2018 Inactive Levaquin 500 mg tablet RxNorm: 971793 1 Tablet(s) PO QD 03/17/2018 Inactive Levaquin 500 mg tablet RxNorm: 660311 1 Tablet(s) PO QD 03/17/2018 Inactive Flagyl 500 mg tablet RxNorm: 587636 1 Tablet(s) PO TID 03/17/2018 Inactive ketoconazole 200 mg tablet RxNorm: 123339 1 Tablet(s) PO QD 019 03/19/2018 Inactive Celebrex 200 mg capsule RxNorm: 108785 1 Capsule(s) PO BID 02/06/20 18 05/20/2018 Inactive tramadol 50 mg tablet RxNorm: 750068 1 Tablet(s) PO TID as needed 1 04/08/2017 05/20/2018 Inactive gabapentin 300 mg capsule RxNorm: 906735 1 Capsule(s) PO BID 201705/20/2018 Inactive Diflucan 150 mg tablet RxNorm: 851233 1 Tablet(s) PO QD 01/20/2018 Inactive pramipexole 1 mg tablet RxNorm: 426376 1 Tablet(s) PO Q PM FOR RESTLESS LEGS (REPLACES REQUIP) 01/08/2018 02/11/2019 Inactive cyclobenzaprine 10 mg tablet RxNorm: 720209 1 Tablet(s) PO TID as needed for muscle spasm 12/17/2017 05/20/2018 Inactive pramipexole 1 mg tablet RxNorm: 397079 TAKE 1 TABLET BY MOUTH ONCE DAILY IN THE EVENING FOR RESTLESS LEGS (REPLACES REQUIP) 12/04/2017 01/05/2018 Inac tive Amaryl 4 mg tablet RxNorm: 276759 1 Tablet(s) PO BID replaces 2mg 0 11/05/2017 12/16/2017 Inactive Singulair 10 mg tablet RxNorm: 890460 1 Tablet(s) PO QHS for al lergies/lungs 10/30/2017 12/16/2017 Inactive Diflucan 100 mg tablet RxNorm: 449968 1 Tablet(s) PO QD 10/23/2017 Inactive Ativan 0.5 mg tablet RxNorm: 935354 TAKE 1 TABLET BY MOUTH THRE E TIMES DAILY 08/30/2017 11/20/2018 Inactive buspirone 5 mg tablet RxNorm: 119204 1 Tablet(s) PO TID 07/11/2017 Inactive propranolol 60 mg tablet RxNorm: 145541 1 Tablet(s) PO BID repl aces 40mg dose 06/26/2017 12/16/2017 Inactive Amaryl 4 mg tablet RxNorm: 249491 1 Tablet(s) PO BID replaces 2mg 0 06/12/2017 11/05/2017 Inactive omeprazole 40 mg capsule,delayed release RxNorm: 526162 1 Capsule(s) PO BID TAKE ONE CAPSULE BY MOUTH TWICE DAILY 05/30/2017 11/25/2017 Inactive pramipexole 1 mg tablet RxNorm: 750339 1 Tablet(s) PO Q PM for restless legs--replaces requip 05/30/2017 11/25/2017 Inactive amitriptyline 50 mg tablet RxNorm: 817841 1 Tablet(s) PO QHS 201709/16/2017 Inactive Diflucan 100 mg tablet RxNorm: 078934 1 Tablet(s) PO BID 05/07/2017 0 05/20/2017 Inactive nystatin (bulk) 100 million unit powder RxNorm: Application TO P BID 05/07/2017 05/20/2018 Inactive cholestyramine (with sugar) 4 gram oral powder RxNorm: 075066 1 Unit Dose PO QD 05/07/2017 01/20/2018 Inactive Ativan 0.5 mg tablet RxNorm: 005505 TAKE ONE TABLET BY MOUTH TH REE TIMES DAILY 05/01/2017 09/02/2017 Inactive Trulicity 1.5 mg/0.5 mL subcutaneous pen injector RxNorm: 15 33569 1 Unit Dose SQ WEEKLY 02/22/2017 03/23/2017 Inactive doxycycline hyclate 100 mg capsule RxNorm: 1397472 1 Capsule(s) PO BID 01/23/2017 02/05/2017 Inactive Amaryl 4 mg tablet RxNorm: 988539 1 Tablet(s) PO BID replaces 2mg 1 03/25/2016 05/22/2017 Inactive magnesium oxide 400 mg capsule RxNorm: 294840 1 Capsule(s) PO QD 07/18/2017 Inactive Ativan 0.5 mg tablet RxNorm: 107800 TAKE ONE TABLET BY MOUTH TH REE TIMES DAILY 01/17/2017 05/01/2017 Inactive Amaryl 2 mg tablet RxNorm: 586738 1 Tablet(s) PO BID 12/27/201601/22 Inactive Amaryl 2 mg tablet RxNorm: 953935 1 Tablet(s) PO BID 12/26/201612/26 Inactive Ativan 0.5 mg tablet RxNorm: 444567 TAKE ONE TABLET BY MOUTH TH REE TIMES DAILY 12/05/2016 01/18/2017 Inactive pramipexole 1 mg tablet RxNorm: 914527 1 Tablet(s) PO Q PM for restless legs--replaces requip 11/26/2016 05/30/2017 Inactive Mobic 15 mg tablet RxNorm: 077096 1 Tablet(s) PO QD 10/08/20162016 Inactive cyclobenzaprine 5 mg tablet RxNorm: 753357 1/2- 1 Tablet(s) PO TID 10/08/2016 10/17/2016 Inactive Ativan 0.5 mg tablet RxNorm: 218898 1 Tablet(s) PO TID 09/20/201607/2016 Inactive amitriptyline 50 mg tablet RxNorm: 362872 1 Tablet(s) PO QHS 201605/30/2017 Inactive propranolol 60 mg tablet RxNorm: 797508 1 Tablet(s) PO BID repl aces 40mg dose 09/19/2016 06/26/2017 Inactive Ativan 0.5 mg tablet RxNorm: 595709 1 Tablet(s) PO TID 08/20/2016 Inactive omeprazole 40 mg capsule,delayed release RxNorm: 841035 1 Capsule(s) PO BID TAKE ONE CAPSULE BY MOUTH TWICE DAILY 08/20/2016 05/30/2017 Inactive amitriptyline 50 mg tablet RxNorm: 721044 1 Tablet(s) PO QHS 201609/18/2016 Inactive pramipexole 1 mg tablet RxNorm: 821391 1 Tablet(s) PO Q PM for restless legs--replaces requip 07/23/2016 11/25/2016 Inactive Amaryl 2 mg tablet RxNorm: 388696 1 Tablet(s) PO BID 07/23/201612/27 Inactive propranolol 40 mg tablet RxNorm: 628793 1 Tablet(s) PO BID 07/13/19 17 09/18/2016 Inactive Ativan 0.5 mg tablet RxNorm: 418108 1 Tablet(s) PO QID 06/19/2016 Inactive Amaryl 2 mg tablet RxNorm: 094012 1 Tablet(s) PO BID 06/19/201607/22 Inactive Ativan 0.5 mg tablet RxNorm: 814743 1 Tablet(s) PO QID 06/19/2016 Inactive buspirone 5 mg tablet RxNorm: 921103 1 Tablet(s) PO TID 06/19/2016 Inactive Ativan 0.5 mg tablet RxNorm: 128141 1 Tablet(s) PO BID 05/24/2016 Inactive buspirone 5 mg tablet RxNorm: 780400 1 Tablet(s) PO TID 05/23/2016 Inactive Macrobid 100 mg capsule RxNorm: 696676 1 Capsule(s) PO QOD 05/03/1910/07/2016 Inactive pramipexole 1 mg tablet RxNorm: 530866 Tablet(s) 1 Tabl et(s) PO QPM for restless legs--replaces requip 04/26/2016 06/24/2016 Inactive propranolol 40 mg tablet RxNorm: 065340 TAKE ONE TABLET BY MOUT H TWICE DAILY 04/26/2016 06/24/2016 Inactive Detrol LA 4 mg capsule,extended release RxNorm: 742711 1 Capsul e(s) PO QHS 04/03/2016 05/02/2016 Inactive prednisone 20 mg tablet RxNorm: 385810 1 Tablet(s) PO QD 02/29/2016 0 03/04/2016 Inactive Actos 30 mg tablet RxNorm: 504965 TAKE ONE TABLET BY MOUTH ONCE DAILY 02/27/2016 12/19/2016 Inactive clindamycin 300 mg capsule RxNorm: 982186 1 Capsule(s) PO TID 02/0102/08/2016 Inactive Flagyl 500 mg tablet RxNorm: 643213 1 Tablet(s) PO BID 02/02/201609/2015 Inactive omeprazole 40 mg capsule,delayed release RxNorm: 134144 TAKE ONE CAPSULE BY MOUTH TWICE DAILY 01/15/2016 07/12/2016 Inactive gabapentin 300 mg capsule RxNorm: 016749 1 Capsule(s) PO QAM an d 2 po q HS 01/05/2016 06/18/2016 Inactive gabapentin 300 mg capsule RxNorm: 764639 1 Capsule(s) P O BID 1 Capsule(s) PO QHS 12/05/2015 01/04/2016 Inactive cyclobenzaprine 10 mg tablet RxNorm: 315020 1 Tablet(s) PO TID for spasm as needed for muscle spasm 12/05/2015 06/18/2016 Inactive ciprofloxacin 250 mg tablet RxNorm: 963809 1 Tablet(s) PO BID 12/0412/14/2015 Inactive pramipexole 1 mg tablet RxNorm: 305659 Tablet(s) 1 Tabl et(s) PO QPM for restless legs--replaces requip 11/07/2015 11/26/2016 Inactive Januvia 100 mg tablet RxNorm: 873740 1 Tablet(s) PO QD 10/26/201504/2015 Inactive propranolol 40 mg tablet RxNorm: 594284 TAKE ONE TABLET BY MOUT H TWICE DAILY 10/25/2015 04/21/2016 Inactive gabapentin 300 mg capsule RxNorm: 149989 1 Capsule(s) PO QHS 201512/04/2015 Inactive Cipro 500 mg tablet RxNorm: 290231 1 Tablet(s) PO BID 10/05/201511/2015 Inactive pramipexole 1 mg tablet RxNorm: 773909 Tablet(s) 1 Tabl et(s) PO QPM for restless legs--replaces requip 10/04/2015 11/02/2015 Inactive propranolol 40 mg tablet RxNorm: 704321 TAKE ONE TABLET BY MOUT H TWICE DAILY 09/26/2015 10/24/2015 Inactive Amaryl 2 mg tablet RxNorm: 788220 1 Tablet(s) PO QD 09/15/20152016 Inactive gabapentin 300 mg capsule RxNorm: 263820 1 Capsule(s) PO QHS 201510/14/2015 Inactive buspirone 5 mg tablet RxNorm: 881689 1 Tablet(s) PO TID 09/15/2015 Inactive pramipexole 1 mg tablet RxNorm: 301113 Tablet(s) 1 Tabl et(s) PO QPM for restless legs--replaces requip 09/08/2015 10/03/2015 Inactive pramipexole 1 mg tablet RxNorm: 218932 1 Tablet(s) PO Q PM for restless legs--replaces requip 08/08/2015 09/08/2015 Inactive Amaryl 2 mg tablet RxNorm: 916242 1 Tablet(s) PO QD 07/07/20152015 Inactive pramipexole 1 mg tablet RxNorm: 066699 1 Tablet(s) PO Q PM for restless legs--replaces requip 07/05/2015 08/03/2015 Inactive ropinirole 2 mg tablet RxNorm: 573632 TAKE ONE TABLET BY MOUTH TWICE DAILY 05/09/2015 09/14/2015 Inactive Diflucan 100 mg tablet RxNorm: 980437 1 Tablet(s) PO QD 03/30/2015 Inactive propranolol 40 mg tablet RxNorm: 198667 1 Tablet(s) PO BID 02/24/20 15 08/21/2015 Inactive [SAVINGS FOR UNINSURED PATIE NTS -- BIN:874461, PCN: ASPROD1, Group: AME08, ID# [id number], Process claim through [employer], for questions: . THIS IS NOT INSURANCE.] Flagyl 500 mg tablet RxNorm: 665956 1 Tablet(s) PO BID 02/03/201502/2015 Inactive Cipro 500 mg tablet RxNorm: 470018 1 Tablet(s) PO BID 02/03/201502/01 Inactive Carafate 1 gram tablet RxNorm: 561414 1 Tablet(s) PO QID make i nto slurry 02/03/2015 09/14/2015 Inactive ondansetron HCl 4 mg tablet RxNorm: 155993 1 Tablet(s) PO Q4H as needed for nausea 12/29/2014 01/04/2016 Inactive Diflucan 100 mg tablet RxNorm: 586891 1 Tablet(s) PO QD 12/29/2014 Inactive Keflex 500 mg capsule RxNorm: 204864 1 Capsule(s) PO TID 12/29/2014 1 03/09/2014 Inactive omeprazole 40 mg capsule,delayed release RxNorm: 074018 1 Capsu le(s) PO BID 12/27/2014 12/21/2015 Inactive [SAVINGS FOR UNINSUR ED PATIENTS -- BIN:710373, PCN: ASPROD1, Group: AME08, ID# [id number], Process claim through [employer], for questions: . THIS IS NOT INSURANCE.] ropinirole 2 mg tablet RxNorm: 285075 1 Tablet(s) PO BID 09/29/2014 0 03/27/2015 Inactive [SAVINGS FOR UNINSURED PATIENTS -- BIN:0 10565, PCN: ASPROD1, Group: AME08, ID# [id number], Process claim through [employer], for questions: . THIS IS NOT INSURANCE.] buspirone 5 mg tablet RxNorm: 925027 1 Tablet(s) PO TID 09/17/2014 Inactive ropinirole 2 mg tablet RxNorm: 569109 1 Tablet(s) PO BID 09/02/2014 0 09/28/2014 Inactive [SAVINGS FOR UNINSURED PATIENTS -- BIN:0 16524, PCN: ASPROD1, Group: AME08, ID# [id number], Process claim through [employer], for questions: . THIS IS NOT INSURANCE.] Zyrtec 10 mg tablet RxNorm: 4891094 1 Tablet(s) PO QD 09/02/201412/02 Inactive propranolol 40 mg tablet RxNorm: 870380 1 Tablet(s) PO BID 07/21/19 15 02/23/2015 Inactive [SAVINGS FOR UNINSURED PATIE NTS -- BIN:046568, PCN: ASPROD1, Group: AME08, ID# [id number], Process claim through [employer], for questions: . THIS IS NOT INSURANCE.] ropinirole 2 mg tablet RxNorm: 887422 1 Tablet(s) PO QHS 05/14/2014 0 09/01/2014 Inactive [SAVINGS FOR UNINSURED PATIENTS -- BIN:0 65180, PCN: ASPROD1, Group: AME08, ID# [id number], Process claim through [employer], for questions: . THIS IS NOT INSURANCE.] cyclobenzaprine 10 mg tablet RxNorm: 248280 1 Tablet(s) PO QHS for spasm 04/06/2014 09/01/2014 Inactive ipratropium-albuterol 0.5 mg-3 mg(2.5 mg base)/3 mL ne bulization soln RxNorm: 5050615 1 Unit Dose INH Q4H 03/16/2014 No Stop Date Active [SAVINGS FOR UNINSURED PATIENTS -- BIN:610192, PCN: ASPROD1, Group: AME08, ID# [id number], Process claim through [employer], for questions: . THIS IS NOT INSURANCE.] prednisone 20 mg tablet RxNorm: 275275 1 Tablet(s) PO BID 03/09/2014 03/15/2014 Inactive [SAVINGS FOR UNINSURED PATIENTS -- BIN:0 60757, PCN: ASPROD1, Group: AME08, ID# [id number], Process claim through [employer], for questions: . THIS IS NOT INSURANCE.] ipratropium-albuterol 0.5 mg-3 mg(2.5 mg base)/3 mL ne bulization soln RxNorm: 5060143 1 Unit Dose INH Q4H 03/09/2014 03/15/2014 Inactive [SAVINGS FOR UNINSURED PATIENTS -- BIN:547822, PCN: ASPROD1, Group: AME08, ID# [id number], Process claim through [employer], for questions: . THIS IS NOT INSURANCE.] Levaquin 500 mg tablet RxNorm: 194484 1 Tablet(s) PO QD 03/09/2014 Inactive [SAVINGS FOR UNINSURED PATIENTS -- BIN:0 53064, PCN: ASPROD1, Group: AME08, ID# [id number], Process claim through [employer], for questions: . THIS IS NOT INSURANCE.] Carafate 1 gram tablet RxNorm: 430377 1 Tablet(s) PO AC & HS ma ke into slurry 02/09/2014 09/01/2014 Inactive [SAVINGS FOR UNINSUR ED PATIENTS -- BIN:082163, PCN: ASPROD1, Group: AME08, ID# [id number], Process claim through [employer], for questions: . THIS IS NOT INSURANCE.] Fioricet 50 mg-300 mg-40 mg capsule RxNorm: 3022190 1-2 Capsule(s) PO Q4H as needed for headache --max of 6 a day 02/09/2014 09/01/2014 Inactive [SAVINGS FOR UNINSURED PATIENTS -- BIN:347387, PCN: ASPROD1, Group: AME08, ID# [id number], Process claim through [employer], for questions: . THIS IS NOT INSURANCE.] propranolol 40 mg tablet RxNorm: 975789 1 Tablet(s) PO BID 12/08/19 14 06/04/2014 Inactive [SAVINGS FOR UNINSURED PATIE NTS -- BIN:855846, PCN: ASPROD1, Group: AME08, ID# [id number], Process claim through [employer], for questions: . THIS IS NOT INSURANCE.] buspirone 5 mg tablet RxNorm: 803471 1 Tablet(s) PO TID 12/02/2013 Inactive omeprazole 40 mg capsule,delayed release RxNorm: 301352 1 Capsu le(s) PO BID 11/25/2013 11/19/2014 Inactive [SAVINGS FOR UNINSUR ED PATIENTS -- BIN:221085, PCN: ASPROD1, Group: AME08, ID# [id number], Process claim through [employer], for questions: . THIS IS NOT INSURANCE.] ropinirole 2 mg tablet RxNorm: 413320 1 Tablet(s) PO QHS 11/10/2013 0 05/08/2014 Inactive [SAVINGS FOR UNINSURED PATIENTS -- BIN:0 40278, PCN: ASPROD1, Group: AME08, ID# [id number], Process claim through [employer], for questions: . THIS IS NOT INSURANCE.] Cipro 500 mg tablet RxNorm: 657591 1 Tablet(s) PO BID 10/21/201312/03 Inactive [SAVINGS FOR UNINSURED PATIENTS -- BIN:0 43769, PCN: ASPROD1, Group: AME08, ID# [id number], Process claim through [employer], for questions: . THIS IS NOT INSURANCE.] hydroxyzine HCl 25 mg tablet RxNorm: 574171 1 Tablet(s) PO Q4-6 H as needed 10/05/2013 01/04/2016 Inactive [SAVINGS FOR UNINSUR ED PATIENTS -- BIN:211086, PCN: ASPROD1, Group: AME08, ID# [id number], Process claim through [employer], for questions: . THIS IS NOT INSURANCE.] triamcinolone acetonide 0.1 % topical cream RxNorm: 2948889 Appl ication TOP BID 10/05/2013 09/01/2014 Inactive [SAVINGS FOR UNINSUR ED PATIENTS -- BIN:357617, PCN: ASPROD1, Group: AME08, ID# [id number], Process claim through [employer], for questions: . THIS IS NOT INSURANCE.] albuterol sulfate HFA 90 mcg/actuation aerosol inhaler RxNor m: 9271255 2 Puff(s) INH Q4H as needed for cough 10/01/2013 12/22/2013 Inactive [MAKSIM INGS FOR UNINSURED PATIENTS -- BIN:476477, PCN: ASPROD1, Group: AME08, ID# [id number], Process claim through [employer], for questions: . THIS IS NOT INSURANCE.] propranolol 40 mg tablet RxNorm: 743923 1 Tablet(s) PO BID 09/02/1911/2911/29/2013 Inactive [SAVINGS FOR UNINSURED PATIE NTS -- BIN:785113, PCN: ASPROD1, Group: AME08, ID# [id number], Process claim through [employer], for questions: . THIS IS NOT INSURANCE.] propranolol 40 mg tablet RxNorm: 920160 1 Tablet(s) PO BID 08/05/19 14 08/31/2013 Inactive [SAVINGS FOR UNINSURED PATIE NTS -- BIN:917805, PCN: ASPROD1, Group: AME08, ID# [id number], Process claim through [employer], for questions: . THIS IS NOT INSURANCE.] Toprol XL 50 mg tablet,extended release RxNorm: 005594 1 Tablet (s) PO QHS 07/23/2013 08/03/2013 Inactive Macrobid 100 mg capsule RxNorm: 021897 1 Capsule(s) PO BID 07/04/19 14 07/09/2013 Inactive Toprol XL 50 mg tablet,extended release RxNorm: 665540 1 Tablet (s) PO QHS 05/28/2013 06/26/2013 Inactive ciprofloxacin 500 mg tablet RxNorm: 942464 1 Tablet(s) PO BID 05/2706/02/2013 Inactive Bystolic 5 mg tablet RxNorm: 623980 1 Tablet(s) PO QD 05/27/201305/03 Inactive ropinirole 2 mg tablet RxNorm: 376222 1 Tablet(s) PO QHS 04/22/2013 0 11/09/2013 Inactive Cipro 250 mg tablet RxNorm: 840506 1 Tablet(s) PO BID 04/06/201311/2013 Inactive ropinirole 2 mg tablet RxNorm: 861433 1 Tablet(s) PO QHS 02/17/2013 0 04/21/2013 Inactive Amaryl 2 mg tablet RxNorm: 365972 1 Tablet(s) PO QAM 11/11/201211/10 Inactive Amaryl 2 mg tablet RxNorm: 829028 1 Tablet(s) PO QAM 11/11/201204/05 Inactive omeprazole 40 mg capsule,delayed release RxNorm: 413118 1 Capsu le(s) PO BID 08/14/2012 08/08/2013 Inactive Bystolic 5 mg tablet RxNorm: 455828 1 Tablet(s) PO QD 08/14/201205/03 Inactive propranolol 60 mg tablet RxNorm: 763904 Tablet(s) PO TAKE 1 TAB LET TWICE DAILY 08/01/2012 09/01/2012 Inactive Bystolic 5 mg tablet RxNorm: 925864 1 Tablet(s) PO QD 07/21/201207/02 Inactive Bystolic 5 mg tablet RxNorm: 325967 1 Tablet(s) PO QD 07/21/201207/03 Inactive Prilosec 40 mg capsule,delayed release RxNorm: 621403 1 Capsule (s) PO BID 06/24/2012 07/21/2012 Inactive buspirone 10 mg tablet RxNorm: 008948 1 Tablet(s) PO TID 05/08/2012 0 05/23/2016 Inactive Valium 10 mg tablet RxNorm: 354316 1 Tablet(s) PO BID 04/02/201207/03 Inactive Endocet 10 mg-325 mg tablet RxNorm: 6023497 1 Tablet(s) PO QID 03/0607/21/2012 Inactive as needed for severe pain Valium 10 mg tablet RxNorm: 505638 1 Tablet(s) PO BID 02/27/2012 No S top Date Active Endocet 10 mg-325 mg tablet RxNorm: 5911308 1 Tablet(s) PO QID 02/0203/27/2012 Inactive as needed for severe pain Endocet 10 mg-325 mg tablet RxNorm: 7903679 1 Tablet(s) PO QID 01/0302/26/2012 Inactive as needed for severe pain Valium 10 mg tablet RxNorm: 678889 1 Tablet(s) PO BID 01/29/2012 No S top Date Active Protonix 40 mg tablet,delayed release RxNorm: 386333 1 Tablet(s ) PO QD 01/28/2012 07/21/2012 Inactive metformin ER 500 mg tablet,extended release 24 hr RxNorm: 86 0977 1 Tablet(s) PO QD 12/26/2011 07/20/2012 Inactive Trazadone 150 mg Tablet RxNorm: 1 Tablet(s) PO QHS prn sleep 1 04/23/2012 Inactive Endocet 10 mg-325 mg tablet RxNorm: 3363479 1 Tablet(s) PO QID 12/0301/24/2012 Inactive as needed for severe pain Nexium 40 mg capsule,delayed release RxNorm: 242307 1 Capsule(s ) PO QD 12/26/2011 01/27/2012 Inactive Symbicort 160 mcg-4.5 mcg/actuation HFA Aerosol Inhaler RxNo rm: 0175644 2 Puff(s) INH BID 12/04/2011 07/21/2012 Inactive Endocet 10 mg-325 mg tablet RxNorm: 6607432 1 Tablet(s) PO QID 11/0312/25/2011 Inactive as needed for severe pain metformin ER 500 mg tablet,extended release 24 hr RxNorm: 86 0977 1 Tablet(s) PO QD 11/20/2011 12/19/2011 Inactive metformin ER 500 mg tablet,extended release 24 hr RxNorm: 86 0977 1 Tablet(s) PO QD 11/20/2011 11/19/2011 Inactive amitriptyline 100 mg tablet RxNorm: 123304 Tablet(s) PO QHS 1 a nd 1/2 tabs QHS 11/12/2011 11/13/2011 Inactive Valium 10 mg tablet RxNorm: 436823 1 Tablet(s) PO BID 11/09/2011 No S top Date Active Endocet 10 mg-325 mg tablet RxNorm: 5918805 1 Tablet(s) PO QID 10/0211/14/2011 Inactive as needed for severe pain Aricept 10 mg Tab RxNorm: 228067 1 Tablet(s) PO QD 10/05/2011 013 Inactive Valium 10 mg tablet RxNorm: 227393 1 Tablet(s) PO BID 10/05/2011 No S top Date Active Endocet 10 mg-325 mg Tab RxNorm: 9420936 1 Tablet(s) PO QID 012 10/09/2011 Inactive as needed for severe pain Aricept 10 mg Tab RxNorm: 087269 1 Tablet(s) PO QD 08/14/2011 012 Inactive Endocet 10 mg-325 mg Tab RxNorm: 6463396 1 Tablet(s) PO QID 012 08/31/2011 Inactive as needed for severe pain Valium 10 mg Tab RxNorm: 696984 1 Tablet(s) PO BID 08/02/2011 No Stop Date Active propranolol 60 mg tablet RxNorm: 276170 1 Tablet(s) PO BID 07/26/19 12 09/11/2011 Inactive amitriptyline 100 mg tablet RxNorm: 345786 Tablet(s) PO QHS 1 a nd / tabs QHS 06/20/2011 09/11/2011 Inactive buspirone 10 mg tablet RxNorm: 331277 1 Tablet(s) PO BID 06/18/2011 0 09/15/2011 Inactive propranolol 60 mg Tab RxNorm: 559025 1 Tablet(s) PO BID 06/18/2011 Inactive gabapentin 800 mg Tab RxNorm: 229396 1 Tablet(s) PO BID 06/18/2011 Inactive ropinirole 2 mg tablet RxNorm: 115894 1 Tablet(s) PO QHS 05/29/2011 0 08/26/2011 Inactive trimethoprim 100 mg Tab RxNorm: 224995 1 Tablet(s) PO QHS 05/29/2011 07/21/2012 Inactive Endocet 10 mg-325 mg Tab RxNorm: 6741527 1 Tablet(s) PO QID 012 2011 Inactive as needed for severe pain Valium 10 mg Tab RxNorm: 426432 1 Tablet(s) PO QHS N eed to take med as prescribed. this is a 40 day RX. No early fills. 05/17/2011 05/20/2018 Inactive propranolol 60 mg Tab RxNorm: 671517 1 Tablet(s) PO BID 04/16/2011 Inactive Neurontin 800 mg Tab RxNorm: 475844 1 Tablet(s) PO QHS 04/05/201103/2011 Inactive Endocet 10 mg-325 mg Tab RxNorm: 4699224 1 Tablet(s) PO QID 012 05/02/2011 Inactive as needed for severe pain oxycodone-acetaminophen 10 mg-325 mg tablet RxNorm: 1415542 1 Ta blet(s) PO Q4H 03/28/2011 05/19/2012 Inactive Valium 10 mg Tab RxNorm: 793293 1 Tablet(s) PO QHS 03/28/2011 012 Inactive buspirone 10 mg Tab RxNorm: 398809 1 Tablet(s) PO BID 03/27/201106/02 Inactive propranolol 60 mg Tab RxNorm: 639019 1 Tablet(s) PO BID 03/19/2011 Inactive Klor-Con M20 20 mEq Tab RxNorm: 3733561 1 Tablet(s) PO QD 03/19/2011 07/21/2012 Inactive Aricept 10 mg Tab RxNorm: 728023 1 Tablet(s) PO QD 02/27/2011 012 Inactive propranolol 60 mg Tab RxNorm: 945115 1 Tablet(s) PO BID 02/19/2011 Inactive omeprazole 40 mg capsule,delayed release RxNorm: 440758 1 Capsu le(s) PO BID 01/24/2011 05/23/2011 Inactive clindamycin 300 mg capsule RxNorm: 586579 1 Capsule(s) PO TID 01/2402/02/2011 Inactive propranolol 60 mg Tab RxNorm: 086074 1 Tablet(s) PO BID 01/22/2011 No Stop Date Active nystatin 100,000 unit/g Topical Cream RxNorm: 527435 Applicatio n TOP BID 01/15/2011 01/14/2011 Inactive to rash for 2-4 week s Diflucan 200 mg Tab RxNorm: 314325 1 Tablet(s) PO QD 01/15/201101/28 Inactive buspirone 10 mg Tab RxNorm: 830367 1 Tablet(s) PO BID 01/08/201103/05 Inactive Valium 10 mg Tab RxNorm: 503410 1 Tablet(s) PO QHS 01/05/2011 012 Inactive Diflucan 200 mg Tab RxNorm: 801865 1 Tablet(s) PO QD 01/01/201101/14 Inactive Diflucan 200 mg Tab RxNorm: 856298 1 Tablet(s) PO QD 12/18/201012/31 Inactive Valium 10 mg Tab RxNorm: 954729 1 Tablet(s) PO QHS 12/12/2010 011 Inactive Diflucan 200 mg Tab RxNorm: 980713 1 Tablet(s) PO QD 12/07/201012/18 Inactive Aricept 10 mg Tab RxNorm: 412701 1 Tablet(s) PO QD 11/20/2010 011 Inactive ropinirole 1 mg Tab RxNorm: 476270 1 Tablet(s) PO QHS 11/16/201005/03 Inactive enalapril maleate 5 mg Tab RxNorm: 126929 1 Tablet(s) PO QD 011 05/20/2018 Inactive buspirone 10 mg Tab RxNorm: 847271 1 Tablet(s) PO BID 11/16/201012/02 Inactive Valium 10 mg Tab RxNorm: 997789 1 Tablet(s) PO QHS 11/07/2010 011 Inactive Pyridium 100 mg Tab RxNorm: 9894778 1 Tablet(s) PO TID 11/02/201004/2010 Inactive Macrobid 100 mg Cap RxNorm: 6621163 1 Capsule(s) PO BID 11/02/2010 Inactive buspirone 10 mg Tab RxNorm: 994206 1 Tablet(s) PO QHS 10/18/201005/02 Inactive propranolol 60 mg Tab RxNorm: 331132 1 Tablet(s) PO BID 09/18/2010 Inactive Valium 10 mg Tab RxNorm: 498525 1 Tablet(s) PO QHS 09/05/2010 011 Inactive Aricept 10 mg Tab RxNorm: 923512 1 Tablet(s) PO QD 08/14/2010 011 Inactive Valium 10 mg Tab RxNorm: 589236 1 Tablet(s) PO QHS 06/26/2010 011 Inactive ropinirole 1 mg Tab RxNorm: 977494 1 Tablet(s) PO QHS 06/19/201010/02 Inactive omeprazole 40 mg Cap, delayed release RxNorm: 429329 1 Capsule( s) PO QD 06/07/2010 10/04/2010 Inactive Endocet 10 mg-325 mg Tab RxNorm: 6250215 1 Tablet(s) PO QID as needed for severe pain 06/07/2010 03/07/2011 Inactive Endocet 10 mg-325 mg Tab RxNorm: 9294312 1 Tablet(s) PO QID as needed for severe pain 05/04/2010 06/02/2010 Inactive Valium 10 mg Tab RxNorm: 774014 1 Tablet(s) PO QHS 05/01/2010 011 Inactive propranolol 60 mg Tab RxNorm: 012115 1 Tablet(s) PO BID 04/03/2010 Inactive Valium 10 mg Tab RxNorm: 913161 1 Tablet(s) PO QHS 03/28/2010 011 Inactive omeprazole 40 mg Cap, Delayed Release RxNorm: 192567 1 Capsule( s) PO QD 03/28/2010 06/06/2010 Inactive Endocet 10 mg-325 mg Tab RxNorm: 3184358 1 Tablet(s) PO QID prn ari n 03/27/2010 05/20/2018 Inactive Valium 10 mg Tab RxNorm: 334457 1 Tablet(s) PO QHS 02/20/2010 011 Inactive Diflucan 100 mg Tab RxNorm: 266485 1 Tablet(s) PO BID 01/23/201003/2009 Inactive Diflucan 100 mg Tab RxNorm: 955936 1 Tablet(s) PO BID 01/05/201001/02 Inactive Aricept 10 mg Tab RxNorm: 960361 1 Tablet(s) PO QD 12/01/2009 011 Inactive OxyContin 20 mg 12 hr Tab RxNorm: 3423741 1 Tablet(s) PO BID 200904/05/2010 Inactive oxycodone-acetaminophen 10 mg-325 mg Tab RxNorm: 9257394 1 Table t(s) PO Q4H 11/22/2009 11/26/2009 Inactive Phenergan 25 mg Tab RxNorm: 942446 1 Tablet(s) PO PRN MIGRAINE 11/0303/07/2011 Inactive Demerol 100 mg Tab RxNorm: 255562 1 Tablet(s) PO PRN MIGRAINE 11/2203/07/2011 Inactive Oxycodone-Acetaminophen 10 mg-325 mg Tab RxNorm: 5450319 1 Table t(s) PO Q4H 10/11/2009 10/15/2009 Inactive Percocet 10 mg-325 mg Tab RxNorm: 0998879 1 Tablet(s) PO Q4H 200910/24/2009 Inactive propranolol 60 mg Tab RxNorm: 503430 1 Tablet(s) PO BID 08/29/2009 Inactive Valium 10 mg Tab RxNorm: 420045 1 Tablet(s) PO QHS 08/16/2009 010 Inactive Keflex 500 mg Cap RxNorm: 088965 1 Capsule(s) PO BID 07/25/200907/31 Inactive Hydroxyzine 25 mg Tab RxNorm: 634959 1 Tablet(s) PO TID 07/25/2009 Inactive Prednisone 20 mg Tab RxNorm: 184851 1 Tablet(s) PO BID 07/25/2009 Inactive Demerol 100 mg Tab RxNorm: 360411 1 Tablet(s) PO PRN MIGRAINE 07/25 No Stop Date Active Ropinirole 1 mg Tab RxNorm: 773811 1 Tablet(s) PO HS 07/20/200902/14 Inactive Valium 10 mg Tab RxNorm: 071610 1 Tablet(s) PO QHS 07/18/2009 010 Inactive Endocet 10 mg-325 mg Tab RxNorm: 7697484 1 Tablet(s) PO TID 010 07/07/2009 Inactive Demerol 100 mg Tab RxNorm: 131757 1 Tablet(s) PO PRN MIGRAINE 06/08 No Stop Date Active Ropinirole 1 mg Tab RxNorm: 731646 1 Tablet(s) PO HS 05/16/200907/14 Inactive ipratropium-albuterol 0.5 mg-3 mg(2.5 mg base)/3 mL ne bulization soln RxNorm: 4623440 1 Unit Dose INH Q4H as needed No Start Date Active MagOx 400 mg (241.3 mg magnesium) tablet RxNorm: 830313 1 Table t(s) PO BID No Start Date Active Vitamin B12 1000mcg Tablet RxNorm: 1 Tablet(s) PO QD No Start Date Active Vitamin D3 5,000 unit tablet RxNorm: 448211 1 Tablet(s) PO QD No Star t Date Active Tylenol Arthritis Pain 650 mg tablet,extended release RxNorm : 6231058 1 Tablet(s) PO Q4H No Start Date Active Lotrimin AF 2 % topical powder RxNorm: 509598 1 Application TOP BID No Start Date Active enalapril maleate 5 mg Tab RxNorm: 344715 1 Tablet(s) PO QD No Star t Date 07/20/2012 Inactive Demerol 100 mg Tab RxNorm: 161817 Tablet(s) PO PRN MIGRAINE No Star t Date 06/02/2009 Inactive metformin 500 mg tablet RxNorm: 773615 1 Tablet(s) PO QD No Start D ate 04/05/2013 Inactive Breo Ellipta 100 mcg-25 mcg/dose powder for inhalation RxNor m: 9285130 1 Puff(s) INH BID No Start Date 01/04/2016 Inactive Mag-Oxide 400 mg Tab RxNorm: 619974 1 Tablet(s) PO QD No Start Date 0 07/21/2012 Inactive Cipro 500 mg Tab RxNorm: 990512 1 Tablet(s) PO QD No Start Date 04/05 Inactive Ativan 0.5 mg tablet RxNorm: 019582 1 Tablet(s) PO TID as needed No Start Date 05/06/2019 Inactive melatonin 3 mg tablet RxNorm: 396052 2 Tablet(s) PO QHS No Start Da te 08/19/2018 Inactive buspirone 10 mg Tab RxNorm: 699873 1 Tablet(s) PO QD No Start Date Inactive sucralfate 100 mg/mL Oral Susp RxNorm: 375969 2 Teaspoon(s) PO QID No Start Date 07/21/2012 Inactive hydrocodone 5 mg-acetaminophen 325 mg tablet RxNorm: 144632 1 Tablet(s) PO Q4H as needed No Start Date 08/19/2018 Inactive Amaryl 2 mg tablet RxNorm: 624422 1 Tablet(s) PO BID No Start Date Inactive OxyContin 20 mg 12 hr Tab RxNorm: 0703014 1 Tablet(s) PO BID No Sta rt Date 11/27/2009 Inactive propranolol 40 mg tablet RxNorm: 805362 1 Tablet(s) PO QID No Start Date 01/19/2018 Inactive Trazadone 150 mg Tablet RxNorm: 1-2 Tablet(s) PO QHS prn sleep No Start Date 08/09/2010 Inactive propranolol 60 mg Tab RxNorm: 377849 1/2 Tablet(s) PO BID No Start Date 01/21/2011 Inactive insulin NPH and regular human subcutaneous RxNorm: 3283001 subcu taneous No Start Date 11/20/2018 Inactive Ativan 0.5 mg tablet RxNorm: 533292 1 Tablet(s) PO QID No Start Date 06/18/2016 Inactive Vasotec 5 mg Tab RxNorm: 543648 1 Tablet(s) PO BID No Start Date 06/2011 Inactive Toprol XL 50 mg tablet,extended release RxNorm: 256305 1 Tablet (s) PO BID No Start Date 04/05/2013 Inactive Ativan 0.5 mg tablet RxNorm: 277005 1 Tablet(s) PO TID No Start Date 05/25/2016 Inactive Klor-Con M20 20 mEq Tab RxNorm: 8455637 1 Tablet(s) PO QD No Start Date 03/19/2011 Inactive sumatriptan 100 mg tablet RxNorm: 359863 1 Tablet(s) PO at headache onset--repeat in 2hrs if remains No Start Date 07/21/2012 Inactive propranolol 60 mg Tab RxNorm: 827714 1 Tablet(s) PO BID No Start Da te 08/28/2009 Inactive Cholestyramine Light 4 gram Oral Powder RxNorm: 9915057 1 Unit Dose PO QD in water No Start Date 07/21/2012 Inactive nystatin 100,000 unit/g Topical Powder RxNorm: 203067 Applicati on TOP BID No Start Date 07/21/2012 Inactive vitamin R36-rvrpa acid sublingual RxNorm: sublingual No Start Date 07/05/2013 Inactive cyclobenzaprine 5 mg tablet RxNorm: 847202 1/2-1 Tablet (s) PO TID as needed for muscle spasm No Start Date 07/18/2017 Inactive tramadol 50 mg tablet RxNorm: 793640 2 Tablet(s) PO TID as need ed for pain No Start Date 09/01/2014 Inactive aspirin 81 mg Tab RxNorm: 107164 1 Tablet(s) PO QOD No Start Date 04/2013 Inactive Vitamin B12 1000mcg Tablet RxNorm: 1 Tablet(s) PO QD No Start Date 07/18/2017 Inactive cholestyramine (with sugar) 4 gram oral powder RxNorm: 29827 3 1 Unit(s) PO QD as needed No Start Date 05/20/2018 Inactive ProAir HFA 90 mcg/Actuation Aerosol Inhaler RxNorm: 292785 2 Puff(s) INH Q4H prn shortness of breath No Start Date 07/21/2012 Inactive pravastatin 10 mg Tab RxNorm: 875218 1 Tablet(s) PO QD No Start Date 07/21/2012 Inactive gabapentin 800 mg Tab RxNorm: 569015 1 Tablet(s) PO BID No Start Da te 06/03/2011 Inactive Endocet 10 mg-325 mg Tab RxNorm: 4331383 1 Tablet(s) PO TID No Star t Date 06/02/2009 Inactive Naproxen 500 mg Tab RxNorm: 002522 1 Tablet(s) PO BID No Start Date 0 04/05/2010 Inactive Valium 10 mg Tab RxNorm: 020313 1 Tablet(s) PO BID No Start Date 07/04 Inactive enalapril maleate 5 mg Tab RxNorm: 626837 1 Tablet(s) PO QD No Star t Date 11/15/2010 Inactive doxepin 10 mg capsule RxNorm: 5924759 2 Capsule(s) PO QHS No Start Date 09/17/2018 Inactive MS Contin 15 mg Tab RxNorm: 654082 1 Tablet(s) PO BID No Start Date 0 09/18/2010 Inactive buspirone 5 mg tablet RxNorm: 141546 1 Tablet(s) PO TID No Start Da te 12/01/[address] [place] 3 Fish Oil Cap RxNorm: 1 Capsule(s) PO QD No Start Date 07/03 Inactive enalapril maleate 5 mg Tab RxNorm: 484405 1/2 Tablet(s) PO QD No St art Date 03/07/2011 Inactive Lyrica 75 mg capsule RxNorm: 520131 1 Capsule(s) PO QHS No Start Da te 02/08/2014 Inactive Lopressor 100 mg tablet RxNorm: 363239 1 Tablet(s) PO BID No Start Date 06/08/2018 Inactive Lantus Solostar U-100 Insulin 100 unit/mL (3 mL) subcu taneous pen RxNorm: 464846 45 Unit(s) SQ QAM No Start Date 05/20/2018 Inactive aspirin 81 mg tablet RxNorm: 996963 1 Tablet(s) PO QD No Start Date 0 09/14/2015 Inactive diltiazem CD 240 mg capsule,extended release 24 hr RxNorm: 8 22340 1 Capsule(s) PO QD No Start Date 05/25/2019 Inactive insulin NPH isophane U-100 human subcutaneous RxNorm: 546884 beckwith bcutaneous No Start Date 04/20/2019 Inactive sumatriptan 100 mg tablet RxNorm: 408881 1 Tablet(s) PO at headache onset. May repeat 1 in two hours if headache remains. Max of 2 per 24 hours No Start Date 04/01/2018 Inactive gabapentin 300 mg capsule RxNorm: 474898 1 Capsule(s) PO QHS No Sta rt Date 02/04/2018 Inactive Topamax 25 mg Tab RxNorm: 223988 Oral No Start Date 03/07/2011 In active Senokot-S 8.6 mg-50 mg Tab RxNorm: 8064364 1 Tablet(s) PO QD No Sta rt Date 03/07/2011 Inactive metformin ER 500 mg 24 hr tablet,extended release RxNorm: 18 01856 1 Tablet(s) PO QD No Start Date 05/20/2018 Inactive Symbicort 80 mcg-4.5 mcg/actuation HFA Aerosol Inhaler RxNor m: 9333276 2 Puff(s) INH BID No Start Date 04/05/2013 Inactive metoprolol tartrate 25 mg tablet RxNorm: 061118 1 Tablet(s) PO BID No Start Date 05/20/2019 Inactive propranolol 60 mg Tab RxNorm: 420093 1/2 Tablet(s) PO BID No Start Date 07/21/2012 Inactive metformin ER 500 mg 24 hr tablet,extended release RxNorm: 18 71678 2 Tablet(s) PO QD No Start Date 12/16/2017 Inactive Insulin Syringe 1 mL 29 gauge x 1/2" RxNorm: 2 s yringes daily with insulin Dx: E11.65 No Start Date 10/07/2018 Inactive Amitriptyline 75 mg Tab RxNorm: 837213 1 Tablet(s) PO QHS No Start Date 10/23/2009 Inactive donepezil 10 mg Tab RxNorm: 038869 1 Tablet(s) PO QD No Start Date Inactive Lantus Solostar U-100 Insulin 100 unit/mL (3 mL) subcu taneous pen RxNorm: 189026 36 Unit(s) SQ QAM No Start Date 12/24/2017 Inactive Miacalcin 200 unit/Actuation Nasal Enterprise Aerosol RxNorm: 261 204 1 Enterprise NASAL QD Alternate nostrils each day No Start Date 04/05/2010 Inactive Amitriptyline 150 mg Tab RxNorm: 125606 1 Tablet(s) PO QHS No Start Date 01/04/2010 Inactive Bystolic 5 mg tablet RxNorm: 051272 1 Tablet(s) PO QD No Start Date 0 08/13/2012 Inactive Aricept 10 mg Tab RxNorm: 224559 1 Tablet(s) PO QD No Start Date 11/03 Inactive Lantus Solostar U-100 Insulin 100 unit/mL (3 mL) subcu taneous pen RxNorm: 072575 50 Unit(s) SQ QAM No Start Date 08/27/2018 Inactive albuterol sulfate 2.5 mg/3 mL (0.083 %) Neb Solution RxNorm: 740312 1 Unit Dose INH QID as needed No Start Date 08/23/2015 Inactive Symbicort 160 mcg-4.5 mcg/actuation HFA Aerosol Inhaler RxNo rm: 5193920 2 Puff(s) INH BID No Start Date 12/03/2011 Inactive Savella 50 mg Tab RxNorm: 177734 1 Tablet(s) PO BID No Start Date 04/2010 Inactive amitriptyline 100 mg Tab RxNorm: 845264 1 1/2 Tablet(s) PO QHS No S tart Date 06/19/2011 Inactive nystatin 100,000 unit/g Topical Cream RxNorm: 348929 Ap plication TOP BID to rash for 2-4 weeks No Start Date 01/14/2011 Inactive Trelegy Ellipta 100 mcg-62.5 mcg-25 mcg powder for inhalatio n RxNorm: 8290140 1 Puff(s) INH QD No Start Date 12/16/2017 Inactive Lyrica 150 mg capsule RxNorm: 021719 1 Capsule(s) PO QHS No Start D ate 12/04/2015 Inactive sennosides 8.6 mg tablet RxNorm: 095165 1 Tablet(s) PO BID No Start Date 09/07/2018 Inactive metformin ER 500 mg tablet,extended release 24 hr RxNorm: 86 0975 1 Tablet(s) PO QD No Start Date 10/22/2017 Inactive Fish Oil 1,000 mg Cap RxNorm: 1 Capsule(s) PO QD No Start Date 06/2011 Inactive Zyrtec 10 mg Tab RxNorm: 0425266 1 Tablet(s) PO QD No Start Date 07/03 Inactive albuterol sulfate HFA 90 mcg/actuation aerosol inhaler RxNor m: 2735091 2 Puff(s) INH Q4H as needed for cough No Start Date 09/30/2013 Inactive trazodone 150 mg tablet RxNorm: 938102 1 Tablet(s) PO QHS No Start Date 07/21/2012 Inactive Spiriva with HandiHaler 18 mcg & inhalation capsules RxNorm: 998711 1 Capsule(s) INH QD No Start Date 04/05/2013 Inactive Coreg 3.125 mg Tab RxNorm: 281499 1 Tablet(s) PO BID No Start Date Inactive Phenergan 25 mg Tab RxNorm: 009637 Tablet(s) PO PRN MIGRAINE No Sta rt Date 11/21/2009 Inactive Vitamin D 50,000 unit Cap RxNorm: 6716342 1 Capsule(s) PO QW No Sta rt Date 03/07/2011 Inactive Januvia 100 mg tablet RxNorm: 926475 1 Tablet(s) PO QD No Start Date 10/25/2015 Inactive Eliquis 5 mg tablet RxNorm: 6442250 1 Tablet(s) PO BID No Start Date 08/19/2018 Inactive Advair Diskus 500 mcg-50 mcg/Dose for Inhalation RxNorm: 032744 1 INH BID No Start Date 07/21/2012 Inactive Vitamin D3 5,000 unit tablet RxNorm: 961066 1 Tablet(s) PO QD No St art Date 07/18/2017 Inactive Amaryl 2 mg tablet RxNorm: 530925 1 Tablet(s) PO QD No Start Date 06/2015 Inactive Actos 30 mg tablet RxNorm: 454495 1 Tablet(s) PO QD No Start Date Inactive promethazine 25 mg tablet RxNorm: 966468 1 Tablet(s) PO Q4H prn N/V No Start Date 07/21/2012 Inactive ProAir HFA 90 mcg/actuation Aerosol Inhaler RxNorm: 281437 2 Puff(s) INH Q4H prn dyspnea No Start Date 07/21/2012 Inactive Dexilant 60 mg Capsule RxNorm: 334152 1 Capsule(s) PO QD No Start D ate 01/27/2012 Inactive Lantus Solostar U-100 Insulin 100 unit/mL (3 mL) subcu taneous pen RxNorm: 531618 38 Unit(s) SQ QAM No Start Date 05/20/2018 Inactive Valium 10 mg Tab RxNorm: 474461 1 Tablet(s) PO QHS AND PRN No Start Date 10/24/2009 Inactive ZOFRAN ODT 8 mg disintegrating tablet RxNorm: 029073 1 Tablet(s ) PO Q6H No Start Date 07/21/2012 Inactive Medication Administered No Medication Administered data Immunizations Vaccine Codes Date Status Influenza CVX: 135 12/24/2018 Complete Influenza CVX: 135 12/24/2018 Complete Influenza CVX: 135 12/17/2017 Complete Pneumococcal CVX: 33 12/17/2017 Complete Influenza CVX: 135 12/20/2016 Complete Pneumococcal CVX: 133 12/20/2016 Complete Influenza CVX: 135 01/05/2016 Complete Influenza CVX: 135 12/29/2014 Results Observation Observation Code Item Item Code Result Date S ervice Location MICROALBUMIN URINE RANDOM 79385 MICRL MG/L 14.9 MG/L Unknown MICROALBUMIN URINE RANDOM 39782 XM.ALB/CRE 6.1 MG/GCR Unknown MICROALBUMIN URINE RANDOM 26653 CREAT MG/D 243 MG/DL Unknown MICROALBUMIN URINE RANDOM 72920 CRE/100 2.43 G/L 03/05 Unknown PROTEIN/CREAT URINE WITH RATIO 87519|99789 PROT R U 14 MG/D L 04/01/2014 Unknown PROTEIN/CREAT URINE WITH RATIO 23300|01431 CREAT R U 254 MG/ DL 04/01/2014 Unknown PROTEIN/CREAT URINE WITH RATIO 65205|46928 XRATIO P/C 55 MG/ G 04/01/2014 Unknown URINALYSIS 60482 PROTEIN UR NEG 04/28/2010 Unknown URINALYSIS 29117 HEMGLBN UR NEG 04/28/2010 Unknown URINALYSIS 37054 GLUCOSE UR NEG 04/28/2010 Unknown URINALYSIS 68539 KETONES UR NEG 04/28/2010 Unknown URINALYSIS 83210 PH U 5.5 04/28/2010 Unknown URINALYSIS 47627 SP GR U 1.025 04/28/2010 Unknown URINALYSIS 87520 BILRUBN UR NEG 04/28/2010 Unknown URINALYSIS 35440 LEUKO UR 2+ 04/28/2010 Unknown URINALYSIS 08439 NITRITE UR NEG 04/28/2010 Unknown MICR CUL? [id number] WBC/HPF 6-10 04/28/2010 Unknown MICR CUL? [id number] RBC/HPF 0-5 04/28/2010 Unknown MICR CUL? [id number] HYAL CAST 16-25 04/28/2010 Unknown MICR CUL? [id number] SP TO YOLIE? NO 04/28/2010 Unknown MICR CUL? [id number] APPEAR UR NORMAL 04/28/2010 Unknown MICR CUL? [id number] SQ EPI/LPF FEW 04/28/2010 Unknown Procedures Procedure Codes Date URINALYSIS NONAUTO W/O SCOPE CPT-4: 28830 04/16/2019 URINE CULTURE/ COLONY COUNT CPT-4: 54010 04/16/2019 CEFTRIAXONE SODIUM INJECTION CPT-4: J0696 04/16/2019 THER/PROPH/DIAG INJ SC/IM CPT-4: 18817 04/16/2019 DRAIN/INJECT JOINT/BURSA CPT-4: 38504 01/22/2019 TRIAMCINOLONE ACET INJ NOS CPT-4: J3301 01/22/2019 DEXAMETHASONE SODIUM PHOS CPT-4: J1100 01/22/2019 URINE CULTURE/ COLONY COUNT CPT-4: 34571 01/07/2019 URINALYSIS NONAUTO W/O SCOPE CPT-4: 22430 01/07/2019 CEFTRIAXONE SODIUM INJECTION CPT-4: J0696 01/07/2019 THER/PROPH/DIAG INJ SC/IM CPT-4: 07707 01/07/2019 FLU VACC PRSV FREE INC ANTIG 65 AND OLDER CPT-4: 82431 12/24/2018 FLU VACC PRSV FREE INC ANTIG 65 AND OLDER CPT-4: 88441 12/24/2018 ADMIN INFLUENZA VIRUS VAC CPT-4: G0008 12/24/2018 THER/PROPH/DIAG INJ SC/IM CPT-4: 65823 11/04/2018 KETOROLAC TROMETHAMINE INJ CPT-4: J1885 11/04/2018 PROMETHAZINE HCL INJECTION CPT-4: J2550 11/04/2018 PPPS, subseq visit CPT-4: G0439 09/18/2018 THER/PROPH/DIAG INJ SC/IM CPT-4: 24121 04/01/2018 KETOROLAC TROMETHAMINE INJ CPT-4: J1885 04/01/2018 PROMETHAZINE HCL INJECTION CPT-4: J2550 04/01/2018 URINE CULTURE/ COLONY COUNT CPT-4: 08196 03/17/2018 URINALYSIS NONAUTO W/O SCOPE CPT-4: 53572 03/17/2018 FLU VACC PRSV FREE INC ANTIG 65 AND OLDER CPT-4: 95957 12/17/2017 PNEUMOCOCCAL VACC 23 RANDALL IM CPT-4: 08702 12/17/2017 ADMIN INFLUENZA VIRUS VAC CPT-4: G0008 12/17/2017 ADMIN PNEUMOCOCCAL VACCINE CPT-4: G0009 12/17/2017 PPPS, subseq visit CPT-4: G0439 09/17/2017 THER/PROPH/DIAG INJ SC/IM CPT-4: 39551 08/26/2017 KETOROLAC TROMETHAMINE INJ CPT-4: J1885 08/26/2017 PROMETHAZINE HCL INJECTION CPT-4: J2550 08/26/2017 URINALYSIS NONAUTO W/O SCOPE CPT-4: 78506 07/19/2017 URINE CULTURE/ COLONY COUNT CPT-4: 98852 07/19/2017 CEFTRIAXONE SODIUM INJECTION CPT-4: J0696 07/19/2017 THER/PROPH/DIAG INJ SC/IM CPT-4: 30127 07/19/2017 THER/PROPH/DIAG INJ SC/IM CPT-4: 59938 07/19/2017 TRIAMCINOLONE ACET INJ NOS CPT-4: J3301 07/19/2017 PRESCRIP TRANSMIT VIA ERX SY CPT-4: G8553 05/07/2017 PRESCRIP TRANSMIT VIA ERX SY CPT-4: G8553 02/22/2017 PRESCRIP TRANSMIT VIA ERX SY CPT-4: G8553 01/23/2017 FLU VACC PRSV FREE INC ANTIG 65 AND OLDER CPT-4: 44860 12/20/2016 PNEUMOCOCCAL VACC 13 RANDALL IM CPT-4: 14135 12/20/2016 ADMIN INFLUENZA VIRUS VAC CPT-4: G0008 12/20/2016 ADMIN PNEUMOCOCCAL VACCINE CPT-4: G0009 12/20/2016 URINALYSIS NONAUTO W/O SCOPE CPT-4: 02876 10/08/2016 URINE CULTURE/ COLONY COUNT CPT-4: 38920 10/08/2016 PRESCRIP TRANSMIT VIA ERX SY CPT-4: G8553 10/08/2016 PRESCRIP TRANSMIT VIA ERX SY CPT-4: G8553 09/19/2016 PRESCRIP TRANSMIT VIA ERX SY CPT-4: G8553 08/20/2016 PRESCRIP TRANSMIT VIA ERX SY CPT-4: G8553 02/29/2016 KETOROLAC TROMETHAMINE INJ CPT-4: J1885 02/02/2016 THER/PROPH/DIAG INJ SC/IM CPT-4: 56376 02/02/2016 PROMETHAZINE HCL INJECTION CPT-4: J2550 02/02/2016 PRESCRIP TRANSMIT VIA ERX SY CPT-4: G8553 02/02/2016 FLU VACC PRSV FREE INC ANTIG 65 AND OLDER CPT-4: 58031 01/05/2016 PPPS, subseq visit CPT-4: G0439 01/05/2016 ADMIN INFLUENZA VIRUS VAC CPT-4: G0008 01/05/2016 URINE CULTURE/ COLONY COUNT CPT-4: 99050 12/05/2015 URINALYSIS NONAUTO W/O SCOPE CPT-4: 73103 12/05/2015 PRESCRIP TRANSMIT VIA ERX SY CPT-4: G8553 12/05/2015 PRESCRIP TRANSMIT VIA ERX SY CPT-4: G8553 10/26/2015 URINALYSIS NONAUTO W/O SCOPE CPT-4: 99999 10/05/2015 URINE CULTURE/ COLONY COUNT CPT-4: 50124 10/05/2015 PRESCRIP TRANSMIT VIA ERX SY CPT-4: G8553 10/05/2015 SERVICE REQUIRED FOR PMD CPT-4: G0372 09/15/2015 PRESCRIP TRANSMIT VIA ERX SY CPT-4: G8553 09/15/2015 SPECIAL REPORTS OR FORMS CPT-4: 91852 08/25/2015 PRESCRIP TRANSMIT VIA ERX SY CPT-4: G8553 07/05/2015 URINALYSIS NONAUTO W/O SCOPE CPT-4: 70976 03/30/2015 ASSAY, GLUCOSE, BLOOD QUANT CPT-4: 44600 03/30/2015 URINE CULTURE/ COLONY COUNT CPT-4: 12027 03/30/2015 PRESCRIP TRANSMIT VIA ERX SY CPT-4: G8553 03/30/2015 PRESCRIP TRANSMIT VIA ERX SY CPT-4: G8553 02/03/2015 FLU VACC PRSV FREE INC ANTIG 65 AND OLDER CPT-4: 31973 12/29/2014 ADMIN INFLUENZA VIRUS VAC CPT-4: G0008 12/29/2014 PRESCRIP TRANSMIT VIA ERX SY CPT-4: G8553 12/29/2014 PRESCRIP TRANSMIT VIA ERX SY CPT-4: G8553 09/02/2014 PROTEIN/CREAT URINE WITH RATIO CPT-4: 11296|35773 5 MICROALBUMIN QUANTITATIVE CPT-4: 38222 04/01/2014 PRESCRIP TRANSMIT VIA ERX SY CPT-4: G8553 03/16/2014 PRESCRIP TRANSMIT VIA ERX SY CPT-4: G8553 03/09/2014 THER/PROPH/DIAG INJ SC/IM CPT-4: 33532 03/01/2014 TRIAMCINOLONE ACET INJ NOS CPT-4: J3301 03/01/2014 PRESCRIP TRANSMIT VIA ERX SY CPT-4: G8553 02/09/2014 URINE CULTURE/ COLONY COUNT CPT-4: 96775 10/30/2013 URINALYSIS NONAUTO W/O SCOPE CPT-4: 98174 10/21/2013 URINE CULTURE/ COLONY COUNT CPT-4: 98864 10/21/2013 DESTRUCT PREMALG LESION (Cryosurgery) CPT-4: 83053 PRESCRIP TRANSMIT VIA ERX SY CPT-4: G8553 10/05/2013 URINALYSIS NONAUTO W/O SCOPE CPT-4: 40551 08/04/2013 URINE CULTURE/ COLONY COUNT CPT-4: 24532 08/04/2013 PRESCRIP TRANSMIT VIA ERX SY CPT-4: G8553 08/04/2013 THER/PROPH/DIAG INJ SC/IM CPT-4: 22727 07/13/2013 TRIAMCINOLONE ACET INJ NOS CPT-4: J3301 07/13/2013 PRESCRIP TRANSMIT VIA ERX SY CPT-4: G8553 05/27/2013 URINALYSIS NONAUTO W/O SCOPE CPT-4: 50323 05/25/2013 URINE CULTURE/ COLONY COUNT CPT-4: 56707 05/25/2013 THER/PROPH/DIAG INJ SC/IM CPT-4: 60555 05/04/2013 VITAMIN B12 INJECTION CPT-4: J3420 05/04/2013 THER/PROPH/DIAG INJ SC/IM CPT-4: 12565 04/17/2013 VITAMIN B12 INJECTION CPT-4: J3420 04/17/2013 THER/PROPH/DIAG INJ SC/IM CPT-4: 63805 04/17/2013 METHYLPREDNISOLONE 40 MG INJ CPT-4: J1030 04/17/2013 TRIAMCINOLONE ACET INJ NOS CPT-4: J3301 04/17/2013 URINALYSIS NONAUTO W/O SCOPE CPT-4: 70267 04/06/2013 URINE CULTURE/ COLONY COUNT CPT-4: 53022 04/06/2013 PRESCRIP TRANSMIT VIA ERX SY CPT-4: G8553 04/06/2013 KETOROLAC TROMETHAMINE INJ CPT-4: J1885 06/25/2012 PROMETHAZINE HCL INJECTION CPT-4: J2550 06/25/2012 THER/PROPH/DIAG INJ SC/IM CPT-4: 04258 06/25/2012 THER/PROPH/DIAG INJ SC/IM CPT-4: 08420 06/24/2012 METHYLPREDNISOLONE 40 MG INJ CPT-4: J1030 06/24/2012 TRIAMCINOLONE ACET INJ NOS CPT-4: J3301 06/24/2012 URINE CULTURE/ COLONY COUNT CPT-4: 86750 06/24/2012 THER/PROPH/DIAG INJ SC/IM CPT-4: 99772 05/20/2012 KETOROLAC TROMETHAMINE INJ CPT-4: J1885 05/20/2012 THER/PROPH/DIAG INJ SC/IM CPT-4: 90260 05/20/2012 PROMETHAZINE HCL INJECTION CPT-4: J2550 05/20/2012 DRAIN/INJECT JOINT/BURSA CPT-4: 38942 02/13/2012 METHYLPREDNISOLONE 40 MG INJ CPT-4: J1030 02/13/2012 TRIAMCINOLONE ACET INJ NOS CPT-4: J3301 02/13/2012 THER/PROPH/DIAG INJ SC/IM CPT-4: 00321 11/14/2011 METHYLPREDNISOLONE 40 MG INJ CPT-4: J1030 11/14/2011 TRIAMCINOLONE ACET INJ NOS CPT-4: J3301 11/14/2011 THER/PROPH/DIAG INJ SC/IM CPT-4: 07902 09/12/2011 KETOROLAC TROMETHAMINE INJ CPT-4: J1885 09/12/2011 THER/PROPH/DIAG INJ SC/IM CPT-4: 34446 08/09/2011 METHYLPREDNISOLONE 40 MG INJ CPT-4: J1030 08/09/2011 TRIAMCINOLONE ACET INJ NOS CPT-4: J3301 08/09/2011 URINE CULTURE/ COLONY COUNT CPT-4: 14403 07/03/2011 URINE CULTURE/ COLONY COUNT CPT-4: 62676 06/04/2011 THER/PROPH/DIAG INJ SC/IM CPT-4: 95240 05/03/2011 METHYLPREDNISOLONE 40 MG INJ CPT-4: J1030 05/03/2011 TRIAMCINOLONE ACET INJ NOS CPT-4: J3301 05/03/2011 URINALYSIS NONAUTO W/O SCOPE CPT-4: 80008 01/24/2011 URINE CULTURE/ COLONY COUNT CPT-4: 71030 01/24/2011 FLUZONE, 5ML (Medicare) CPT-4: Q2038 01/02/2011 ADMIN INFLUENZA VIRUS VAC CPT-4: G0008 01/02/2011 ASSAY, GLUCOSE, BLOOD QUANT CPT-4: 12842 12/07/2010 URINE CULTURE/ COLONY COUNT CPT-4: 76329 11/02/2010 THER/PROPH/DIAG INJ SC/IM CPT-4: 47744 10/18/2010 METHYLPREDNISOLONE 40 MG INJ CPT-4: J1030 10/18/2010 TRIAMCINOLONE ACET INJ NOS CPT-4: J3301 10/18/2010 TRIAMCINOLONE ACET INJ NOS CPT-4: J3301 05/11/2010 METHYLPREDNISOLONE 40 MG INJ CPT-4: J1030 05/11/2010 THER/PROPH/DIAG INJ SC/IM CPT-4: 25418 05/11/2010 TRIAMCINOLONE ACET INJ NOS CPT-4: J3301 02/09/2010 METHYLPREDNISOLONE 40 MG INJ CPT-4: J1030 02/09/2010 THER/PROPH/DIAG INJ SC/IM CPT-4: 79091 02/09/2010 SERVICE REQUIRED FOR PMD CPT-4: G0372 02/09/2010 FLU VACCINE 3 YRS & > IM UP 64 CPT-4: 09250 0 PNEUMOCOCCAL VACC 23 RANDALL IM CPT-4: 38662 12/07/2009 ADMIN INFLUENZA VIRUS VAC CPT-4: G0008 12/07/2009 ADMIN PNEUMOCOCCAL VACCINE CPT-4: G0009 12/07/2009 TRIAMCINOLONE ACET INJ NOS CPT-4: J3301 05/26/2009 THER/PROPH/DIAG INJ SC/IM CPT-4: 90927 05/26/2009 METHYLPREDNISOLONE 80 MG INJ CPT-4: J1040 05/26/2009 Vital Signs Date Vital 06/16/2019 Blood Pressure 1: 152/97 Code: 8480-6 Heart Rate 1: 58 bpm SpO2: 88% Temperature: 37.6 (C) / 99.6 (F) 05/13/2019 Blood Pressure 1: 142/82 Code: 8480-6 Heart Rate 1: 72 bpm Respiratory Rate: 20 bpm SpO2: 94% Temperature: 36.8 (C) / 98.2 (F) 05/06/2019 Blood Pressure 1: 128/69 Code: 8480-6 Heart Rate 1: 72 bpm Respiratory Rate: 19 bpm SpO2: 96% Temperature: 36.4 (C) / 97.5 (F) We ight: 229 lbs 04/29/2019 Blood Pressure 1: 132/84 Code: 8480-6 Heart Rate 1: 80 bpm Respiratory Rate: 26 bpm SpO2: 96% Temperature: 36.8 (C) / 98.2 (F) We ight: 231 lbs 04/16/2019 Blood Pressure 1: 134/79 Code: 8480-6 Heart Rate 1: 68 bpm Respiratory Rate: 20 bpm SpO2: 96% Temperature: 36.4 (C) / 97.6 (F) We ight: 238 lbs 04/08/2019 Blood Pressure 1: 122/76 Code: 8480-6 Heart Rate 1: 80 bpm Respiratory Rate: 22 bpm SpO2: 96% Temperature: 36.8 (C) / 98.2 (F) We ight: 231 lbs 01/22/2019 Blood Pressure 1: 128/74 Code: 8480-6 Heart Rate 1: 72 bpm Respiratory Rate: 22 bpm SpO2: 95% Temperature: 36.8 (C) / 98.2 (F) We ight: 225 lbs 01/07/2019 Blood Pressure 1: 130/80 Code: 8480-6 Heart Rate 1: 68 bpm SpO2: 94% Temperature: 36.3 (C) / 97.3 (F) Weight: 226 lbs 12/24/2018 Blood Pressure 1: 134/70 Code: 8480-6 Heart Rate 1: 80 bpm Respiratory Rate: 20 bpm SpO2: 95% Temperature: 37.0 (C) / 98.6 (F) We ight: 229 lbs 11/20/2018 Blood Pressure 1: 132/94 Code: 8480-6 Heart Rate 1: 76 bpm Respiratory Rate: 20 bpm SpO2: 97% Temperature: 36.8 (C) / 98.2 (F) We ight: 220 lbs 11/04/2018 Blood Pressure 1: 150/90 Code: 8480-6 Heart Rate 1: 74 bpm SpO2: 98% Temperature: 35.9 (C) / 96.6 (F) Weight: 222 lbs 09/18/2018 Blood Pressure 1: 114/72 Code: 8480-6 BMI: 37.8 Code: 45820-8 Heart Rate 1: 72 bpm Height: 5'3" Respiratory Rate: 20 bpm Temperature: 36 .9 (C) / 98.4 (F) Weight: 215 lbs 09/08/2018 Blood Pressure 1: 110/70 Code: 8480-6 Heart Rate 1: 67 bpm Respiratory Rate: 20 bpm SpO2: 96% Temperature: 36.6 (C) / 97.9 (F) We ight: 215 lbs 8 oz 08/20/2018 Blood Pressure 1: 124/80 Code: 8480-6 Heart Rate 1: 72 bpm Respiratory Rate: 20 bpm SpO2: 96% Temperature: 36.8 (C) / 98.2 (F) We ight: 219 lbs 06/19/2018 Blood Pressure 1: 114/68 Code: 8480-6 Heart Rate 1: 64 bpm Respiratory Rate: 20 bpm SpO2: 96% Temperature: 36.7 (C) / 98.0 (F) We ight: 217 lbs 06/09/2018 Blood Pressure 1: 144/82 Code: 8480-6 Heart Rate 1: 112 bpm Respiratory Rate: 22 bpm SpO2: 96% Temperature: 36.8 (C) / 98.2 (F) We ight: 212 lbs 05/21/2018 Blood Pressure 1: 106/68 Code: 8480-6 BMI: 35.7 Code: 76246-2 Heart Rate 1: 72 bpm Height: 5'4" Respiratory Rate: 20 bpm SpO2: 98% Tempera ture: 36.7 (C) / 98.0 (F) Weight: 208 lbs 04/16/2018 Blood Pressure 1: 132/82 Code: 8480-6 BMI: 37.9 Code: 88768-8 Heart Rate 1: 72 bpm Height: 5'4" Respiratory Rate: 20 bpm SpO2: 96% Tempera ture: 37.1 (C) / 98.8 (F) Weight: 221 lbs 04/01/2018 Blood Pressure 1: 150/90 Code: 8480-6 Heart Rate 1: 72 bpm Respiratory Rate: 22 bpm SpO2: 95% Temperature: 36.4 (C) / 97.6 (F) We ight: 216 lbs 03/06/2018 Blood Pressure 1: 126/78 Code: 8480-6 BMI: 37.4 Code: 05112-0 Heart Rate 1: 68 bpm Height: 5'4" Respiratory Rate: 20 bpm SpO2: 95% Tempera ture: 36.7 (C) / 98.1 (F) Weight: 218 lbs 02/05/2018 Blood Pressure 1: 130/80 Code: 8480-6 Heart Rate 1: 70 bpm Respiratory Rate: 22 bpm SpO2: 97% Temperature: 36.7 (C) / 98.0 (F) We ight: 218 lbs 01/20/2018 Blood Pressure 1: 120/88 Code: 8480-6 Heart Rate 1: 74 bpm Respiratory Rate: 22 bpm SpO2: 96% Temperature: 36.8 (C) / 98.2 (F) We ight: 222 lbs 12/25/2017 BMI: 37.8 Code: 78582-9 Heart Rate 1: 76 bpm Height: 5 '4" Respiratory Rate: 20 bpm SpO2: 96% Temperature: 37.3 (C) / 99.2 (F) Weight: 220 lbs 12/17/2017 Blood Pressure 1: 132/78 Code: 8480-6 BMI: 37.2 Code: 83410-8 Heart Rate 1: 88 bpm Height: 5'4" Respiratory Rate: 20 bpm SpO2: 96% Tempera ture: 37.3 (C) / 99.2 (F) Weight: 217 lbs 10/30/2017 Blood Pressure 1: 114/68 Code: 8480-6 BMI: 36.4 Code: 68429-8 Heart Rate 1: 72 bpm Height: 5'4" Respiratory Rate: 22 bpm SpO2: 96% Tempera ture: 36.8 (C) / 98.2 (F) Weight: 212 lbs 10/23/2017 Blood Pressure 1: 124/78 Code: 8480-6 Heart Rate 1: 72 bpm Respiratory Rate: 24 bpm SpO2: 94% Temperature: 36.6 (C) / 97.9 (F) We ight: 212 lbs 09/17/2017 Blood Pressure 1: 128/82 Code: 8480-6 BMI: 37.4 Code: 09981-6 Heart Rate 1: 72 bpm Height: 5'4" Respiratory Rate: 20 bpm SpO2: 96% Tempera ture: 37.0 (C) / 98.6 (F) Weight: 218 lbs 07/19/2017 Blood Pressure 1: 136/84 Code: 8480-6 BMI: 36.6 Code: 93364-5 Heart Rate 1: 88 bpm Height: 5'4" Respiratory Rate: 20 bpm SpO2: 97% Tempera ture: 36.7 (C) / 98.0 (F) Weight: 213 lbs 05/29/2017 Blood Pressure 1: 136/82 Code: 8480-6 BMI: 36.7 Code: 29842-8 Heart Rate 1: 72 bpm Height: 5'4" Respiratory Rate: 20 bpm SpO2: 97% Tempera ture: 36.9 (C) / 98.4 (F) Weight: 214 lbs 05/07/2017 Blood Pressure 1: 122/80 Code: 8480-6 BMI: 37.1 Code: 03561-9 Heart Rate 1: 80 bpm Height: 5'4" Respiratory Rate: 24 bpm SpO2: 96% Tempera ture: 36.1 (C) / 97.0 (F) Weight: 216 lbs 03/18/2017 BMI: 36.7 Code: 54154-5 Heart Rate 1: 80 bpm Height: 5 '4" Respiratory Rate: 22 bpm SpO2: 95% Temperature: 36.9 (C) / 98.4 (F) Weight: 214 lbs 02/27/2017 Blood Pressure 1: 146/94 Code: 8480-6 BMI: 36.6 Code: 60701-5 Heart Rate 1: 76 bpm Height: 5'4" Respiratory Rate: 22 bpm SpO2: 97% Tempera ture: 36.6 (C) / 97.9 (F) Weight: 213 lbs 02/22/2017 Blood Pressure 1: 126/90 Code: 8480-6 BMI: 36.4 Code: 50491-7 Heart Rate 1: 84 bpm Height: 5'4" Respiratory Rate: 22 bpm SpO2: 95% Tempera ture: 36.9 (C) / 98.4 (F) Weight: 212 lbs 01/23/2017 Blood Pressure 1: 146/82 Code: 8480-6 BMI: 37.6 Code: 94208-0 Heart Rate 1: 96 bpm Height: 5'4" Respiratory Rate: 20 bpm SpO2: 96% Tempera ture: 36.9 (C) / 98.4 (F) Weight: 219 lbs 12/20/2016 Blood Pressure 1: 126/70 Code: 8480-6 BMI: 37.2 Code: 45810-0 Heart Rate 1: 76 bpm Height: 5'4" Respiratory Rate: 22 bpm SpO2: 95% Tempera ture: 36.6 (C) / 97.8 (F) Weight: 217 lbs 10/08/2016 Blood Pressure 1: 128/82 Code: 8480-6 BMI: 36.9 Code: 12723-8 Heart Rate 1: 76 bpm Height: 5'4" Respiratory Rate: 20 bpm SpO2: 95% Tempera ture: 37.0 (C) / 98.6 (F) Weight: 215 lbs 09/19/2016 Blood Pressure 1: 144/78 Code: 8480-6 BMI: 37.8 Code: 29450-2 Heart Rate 1: 76 bpm Height: 5'4" Respiratory Rate: 22 bpm SpO2: 95% Tempera ture: 37.0 (C) / 98.6 (F) Weight: 220 lbs 08/20/2016 Blood Pressure 1: 140/86 Code: 8480-6 BMI: 37.4 Code: 57858-4 Heart Rate 1: 80 bpm Height: 5'4" Respiratory Rate: 20 bpm SpO2: 95% Tempera ture: 36.9 (C) / 98.4 (F) Weight: 218 lbs 06/19/2016 Blood Pressure 1: 124 Code: 8480-6 BMI: 37.8 Code: 10973-2 Heart Rate 1: 74 bpm Height: 5'4" Respiratory Rate: 24 bpm SpO2: 96% Tempera ture: 36.9 (C) / 98.4 (F) Weight: 220 lbs 06/04/2016 Blood Pressure 1: 124 Code: 8480-6 BMI: 38.8 Code: 29996-8 Heart Rate 1: 72 bpm Height: 5'4" Respiratory Rate: 24 bpm SpO2: 95% Tempera ture: 36.8 (C) / 98.2 (F) Weight: 226 lbs 05/02/2016 Blood Pressure 1: 136/90 Code: 8480-6 BMI: 37.6 Code: 98125-1 Heart Rate 1: 72 bpm Height: 5'4" Respiratory Rate: 24 bpm SpO2: 96% Tempera ture: 36.9 (C) / 98.4 (F) Weight: 219 lbs 04/03/2016 Blood Pressure 1: 126/78 Code: 8480-6 BMI: 38.1 Code: 96320-7 Heart Rate 1: 72 bpm Height: 5'4" Respiratory Rate: 22 bpm SpO2: 94% Tempera ture: 36.9 (C) / 98.4 (F) Weight: 222 lbs 02/29/2016 Blood Pressure 1: 132/78 Code: 8480-6 Heart Rate 1: 78 bpm Height: Respiratory Rate: 24 bpm SpO2: 95% Temperature: 36.4 (C) / 97.6 (F) We ight: 02/02/2016 Blood Pressure 1: 12478 Code: 8480-6 BMI: 37.6 Code: 52551-5 Heart Rate 1: 76 bpm Height: 5'4" Respiratory Rate: 20 bpm SpO2: 95% Tempera ture: 36.8 (C) / 98.2 (F) Weight: 219 lbs 01/05/2016 Blood Pressure 1: 126/70 Code: 8480-6 BMI: 37.1 Code: 09601-1 Heart Rate 1: 76 bpm Height: 5'4" Respiratory Rate: 20 bpm Temperature: 36 .6 (C) / 97.8 (F) Weight: 216 lbs 12/05/2015 Blood Pressure 1: 126/72 Code: 8480-6 BMI: 36.9 Code: 96736-0 Heart Rate 1: 92 bpm Height: 5'4" Respiratory Rate: 20 bpm Temperature: 36 .7 (C) / 98.1 (F) Weight: 215 lbs 10/26/2015 Blood Pressure 1: 142/80 Code: 8480-6 BMI: 36.4 Code: 37382-6 Heart Rate 1: 82 bpm Height: 5'4" Respiratory Rate: 24 bpm SpO2: 92% Tempera ture: 35.9 (C) / 96.7 (F) Weight: 212 lbs 10/05/2015 Blood Pressure 1: 136/82 Code: 8480-6 Heart Rate 1: 80 bpm Respiratory Rate: 18 bpm SpO2: 98% Temperature: 35.7 (C) / 96.3 (F) We ight: 214 lbs 09/15/2015 Blood Pressure 1: 116/80 Code: 8480-6 BMI: 34.6 Code: 52066-7 Heart Rate 1: 76 bpm Height: 5'6" Respiratory Rate: 20 bpm Temperature: 36 .6 (C) / 97.9 (F) Weight: 211 lbs 08/24/2015 Blood Pressure 1: 124/80 Code: 8480-6 BMI: 34.1 Code: 61872-5 Heart Rate 1: 68 bpm Height: 5'6" Respiratory Rate: 20 bpm Temperature: 36 .8 (C) / 98.3 (F) Weight: 208 lbs 07/05/2015 Blood Pressure 1: 114/78 Code: 8480-6 BMI: 33.9 Code: 48750-0 Heart Rate 1: 80 bpm Height: 5'6" Respiratory Rate: 20 bpm Temperature: 36 .6 (C) / 97.9 (F) Weight: 207 lbs 06/06/2015 Blood Pressure 1: 122/78 Code: 8480-6 BMI: 34.1 Code: 15177-2 Heart Rate 1: 76 bpm Height: 5'6" Respiratory Rate: 24 bpm SpO2: 96% Tempera ture: 36.4 (C) / 97.6 (F) Weight: 208 lbs 05/23/2015 Blood Pressure 1: 124/78 Code: 8480-6 Heart Rate 1: 76 bpm Respiratory Rate: 24 bpm SpO2: 93% Temperature: 36.8 (C) / 98.2 (F) We ight: 212 lbs 05/05/2015 Blood Pressure 1: 136/80 Code: 8480-6 BMI: 35.4 Code: 01842-9 Heart Rate 1: 76 bpm Height: 5'6" Respiratory Rate: 28 bpm Temperature: 37 .0 (C) / 98.6 (F) Weight: 216 lbs 03/30/2015 Blood Pressure 1: 132/86 Code: 8480-6 BMI: 35.2 Code: 63937-8 Heart Rate 1: 84 bpm Height: 5'6" Respiratory Rate: 24 bpm Temperature: 36 .7 (C) / 98.0 (F) Weight: 215 lbs 02/03/2015 Blood Pressure 1: 122/74 Code: 8480-6 BMI: 35.7 Code: 58646-4 Heart Rate 1: 84 bpm Height: 5'6" Respiratory Rate: 20 bpm Temperature: 36 .9 (C) / 98.5 (F) Weight: 218 lbs 12/29/2014 Blood Pressure 1: 132/80 Code: 8480-6 BMI: 35.1 Code: 15313-3 Heart Rate 1: 80 bpm Height: 5'6" Respiratory Rate: 20 bpm Temperature: 36 .6 (C) / 97.8 (F) Weight: 214 lbs 09/02/2014 Blood Pressure 1: 128/92 Code: 8480-6 BMI: 34.7 Code: 10383-9 Heart Rate 1: 84 bpm Height: 5'6" Respiratory Rate: 26 bpm Temperature: 36 .8 (C) / 98.2 (F) Weight: 212 lbs 08/25/2014 Blood Pressure 1: 124/80 Code: 8480-6 BMI: 34.7 Code: 52182-8 Heart Rate 1: 78 bpm Height: 5'6" Respiratory Rate: 22 bpm SpO2: 97% Tempera ture: 36.6 (C) / 97.8 (F) Weight: 212 lbs 04/01/2014 Blood Pressure 1: 142/84 Code: 8480-6 BMI: 34.4 Code: 47421-6 Heart Rate 1: 74 bpm Height: 5'5" Respiratory Rate: 20 bpm Temperature: 36 .4 (C) / 97.6 (F) Weight: 207 lbs 03/16/2014 Blood Pressure 1: 142/90 Code: 8480-6 BMI: 34.6 Code: 40562-8 Heart Rate 1: 76 bpm Height: 5'5" Respiratory Rate: 24 bpm Temperature: 36 .5 (C) / 97.7 (F) Weight: 208 lbs 03/09/2014 Blood Pressure 1: 116/70 Code: 8480-6 BMI: 35.3 Code: 04378-2 Heart Rate 1: 72 bpm Height: 5'5" Respiratory Rate: 32 bpm SpO2: 94% Tempera ture: 36.4 (C) / 97.5 (F) Weight: 212 lbs 03/03/2014 Blood Pressure 1: 124/82 Code: 8480-6 Heart Rate 1: 76 bpm Height: Respiratory Rate: 20 bpm SpO2: 95% Temperature: 36.5 (C) / 97.7 (F) We ight: 03/01/2014 Blood Pressure 1: 152/80 Code: 8480-6 Heart Rate 1: 76 bpm Height: Respiratory Rate: 22 bpm SpO2: 95% Temperature: 36.6 (C) / 97.9 (F) We ight: 02/09/2014 Blood Pressure 1: 128/86 Code: 8480-6 BMI: 34.3 Code: 04569-5 Heart Rate 1: 84 bpm Height: 5'5" Respiratory Rate: 20 bpm Temperature: 36 .7 (C) / 98.0 (F) Weight: 206 lbs 12/23/2013 Blood Pressure 1: 122/70 Code: 8480-6 BMI: 34.3 Code: 08158-3 Heart Rate 1: 68 bpm Height: 5'5" Respiratory Rate: 20 bpm Temperature: 36 .8 (C) / 98.2 (F) Weight: 206 lbs 10/05/2013 Blood Pressure 1: 118/76 Code: 8480-6 BMI: 34.1 Code: 84562-1 Heart Rate 1: 68 bpm Height: 5'5" Respiratory Rate: 20 bpm SpO2: 98% Tempera ture: 36.6 (C) / 97.9 (F) Weight: 205 lbs 08/04/2013 Blood Pressure 1: 126/82 Code: 8480-6 BMI: 33.3 Code: 23753-1 Heart Rate 1: 76 bpm Height: 5'5" Respiratory Rate: 20 bpm Temperature: 36 .8 (C) / 98.2 (F) Weight: 200 lbs 07/03/2013 Blood Pressure 1: 124/82 Code: 8480-6 BMI: 33.3 Code: 96519-5 Heart Rate 1: 72 bpm Height: 5'5" Respiratory Rate: 22 bpm Temperature: 36 .1 (C) / 97.0 (F) Weight: 200 lbs 05/27/2013 Blood Pressure 1: 126 Code: 8480-6 Heart Rate 1: 74 bpm Respiratory Rate: 20 bpm Temperature: 36.0 (C) / 96.8 (F) Weight: 199 lbs 04/06/2013 Blood Pressure 1: 118/80 Code: 8480-6 BMI: 35.2 Code: 34307-0 Heart Rate 1: 80 bpm Height: 5'4" Respiratory Rate: 20 bpm Temperature: 37 .4 (C) / 99.3 (F) Weight: 205 lbs 11/10/2012 Blood Pressure 1: 128/82 Code: 8480-6 Heart Rate 1: 84 bpm Respiratory Rate: 20 bpm Temperature: 36.7 (C) / 98.0 (F) Weight: 199 lbs 09/02/2012 Blood Pressure 1: 116/82 Code: 8480-6 BMI: 34.2 Code: 09804-7 Heart Rate 1: 88 bpm Height: 5'4" Respiratory Rate: 22 bpm Temperature: 36 .6 (C) / 97.8 (F) Weight: 199 lbs 08/04/2012 Blood Pressure 1: 128/74 Code: 8480-6 BMI: 34.0 Code: 45709-0 Heart Rate 1: 92 bpm Height: 5'4" Respiratory Rate: 20 bpm Temperature: 36 .4 (C) / 97.5 (F) Weight: 198 lbs 07/21/2012 Blood Pressure 1: 124/86 Code: 8480-6 Heart Rate 1: 116 bpm Respiratory Rate: 24 bpm Temperature: 36.8 (C) / 98.2 (F) 07/02/2012 Blood Pressure 1: 116/88 Code: 8480-6 BMI: 33.6 Code: 23842-7 Heart Rate 1: 76 bpm Height: 5'4" Respiratory Rate: 20 bpm Temperature: 36 .8 (C) / 98.3 (F) Weight: 196 lbs 06/24/2012 Blood Pressure 1: 124/80 Code: 8480-6 BMI: 34.3 Code: 93883-6 Heart Rate 1: 72 bpm Height: 5'4" SpO2: 96% Temperature: 36.3 (C) / 97.3 (F) Weight: 200 lbs 05/20/2012 Blood Pressure 1: 11688 Code: 8480-6 BMI: 33.8 Code: 39598-4 Heart Rate 1: 80 bpm Height: 5'4" Respiratory Rate: 22 bpm Temperature: 36 .9 (C) / 98.4 (F) Weight: 197 lbs 05/08/2012 Blood Pressure 1: 128/86 Code: 8480-6 BMI: 33.8 Code: 59424-4 Heart Rate 1: 76 bpm Height: 5'4" Respiratory Rate: 26 bpm SpO2: 95% Tempera ture: 36.1 (C) / 97.0 (F) Weight: 197 lbs 04/22/2012 Blood Pressure 1: 106/64 Code: 8480-6 BMI: 33.8 Code: 30357-9 Heart Rate 1: 70 bpm Height: 5'4" Temperature: 36.1 (C) / 97.0 (F) Weight: 197 lbs 02/13/2012 Blood Pressure 1: 126/82 Code: 8480-6 BMI: 34.7 Code: 95809-6 Heart Rate 1: 64 bpm Height: 5'4" Respiratory Rate: 20 bpm Temperature: 36 .6 (C) / 97.8 (F) Weight: 202 lbs 01/28/2012 Blood Pressure 1: 116/80 Code: 8480-6 BMI: 34.7 Code: 03208-6 Heart Rate 1: 76 bpm Height: 5'4" Respiratory Rate: 20 bpm Temperature: 36 .8 (C) / 98.3 (F) Weight: 202 lbs 12/26/2011 Blood Pressure 1: 132/82 Code: 8480-6 BMI: 36.0 Code: 46016-0 Heart Rate 1: 68 bpm Height: 5'4" Respiratory Rate: 22 bpm Temperature: 36 .7 (C) / 98.0 (F) Weight: 210 lbs 11/14/2011 Blood Pressure 1: 124/80 Code: 8480-6 BMI: 36.4 Code: 83158-9 Heart Rate 1: 76 bpm Height: 5'4" Respiratory Rate: 20 bpm Temperature: 36 .8 (C) / 98.2 (F) Weight: 212 lbs 09/12/2011 Blood Pressure 1: 108/74 Code: 8480-6 BMI: 37.1 Code: 72249-4 Heart Rate 1: 72 bpm Height: 5'4" Respiratory Rate: 20 bpm Temperature: 37 .0 (C) / 98.6 (F) Weight: 216 lbs 08/15/2011 Blood Pressure 1: 122/80 Code: 8480-6 BMI: 36.9 Code: 96024-9 Heart Rate 1: 76 bpm Height: 5'4" Respiratory Rate: 20 bpm Temperature: 36 .2 (C) / 97.1 (F) Weight: 215 lbs 08/09/2011 Blood Pressure 1: 112/78 Code: 8480-6 BMI: 36.9 Code: 90623-5 Heart Rate 1: 68 bpm Height: 5'4" Respiratory Rate: 20 bpm Temperature: 36 .7 (C) / 98.0 (F) Weight: 215 lbs 07/03/2011 Blood Pressure 1: 140/94 Code: 8480-6 BMI: 36.2 Code: 77972-9 Heart Rate 1: 68 bpm Height: 5'4" Temperature: 36.0 (C) / 96.8 (F) Weight: 211 lbs 06/04/2011 Blood Pressure 1: 124/70 Code: 8480-6 BMI: 36.7 Code: 05105-8 Heart Rate 1: 68 bpm Height: 5'4" Respiratory Rate: 20 bpm Temperature: 36 .6 (C) / 97.9 (F) Weight: 214 lbs 05/03/2011 Blood Pressure 1: 130/76 Code: 8480-6 BMI: 36.4 Code: 49151-4 Heart Rate 1: 74 bpm Height: 5'5" Temperature: 36.2 (C) / 97.2 (F) Weight: 219 lbs 04/05/2011 Blood Pressure 1: 124/86 Code: 8480-6 BMI: 35.9 Code: 50422-9 Heart Rate 1: 76 bpm Height: 5'6" Respiratory Rate: 22 bpm Temperature: 36 .3 (C) / 97.3 (F) Weight: 219 lbs 03/08/2011 Blood Pressure 1: 112/78 Code: 8480-6 BMI: 35.1 Code: 20194-7 Heart Rate 1: 80 bpm Height: 5'6" Respiratory Rate: 26 bpm Temperature: 36 .9 (C) / 98.4 (F) Weight: 214 lbs 01/24/2011 Blood Pressure 1: 110/82 Code: 8480-6 BMI: 35.6 Code: 57025-2 Heart Rate 1: 80 bpm Height: 5'6" Temperature: 36.1 (C) / 97.0 (F) Weight: 217 lbs 01/02/2011 Blood Pressure 1: 106/72 Code: 8480-6 BMI: 35.6 Code: 97155-0 Heart Rate 1: 76 bpm Height: 5'6" Respiratory Rate: 24 bpm Temperature: 36 .7 (C) / 98.0 (F) Weight: 217 lbs 12/07/2010 Blood Pressure 1: 128/68 Code: 8480-6 Heart Rate 1: 76 bpm Temperature: 36.4 (C) / 97.5 (F) Weight: 218 lbs 11/16/2010 Blood Pressure 1: 114/80 Code: 8480-6 Heart Rate 1: 68 bpm Temperature: 36.2 (C) / 97.2 (F) Weight: 210 lbs 11/02/2010 Blood Pressure 1: 122/80 Code: 8480-6 Heart Rate 1: 76 bpm Temperature: 37.0 (C) / 98.6 (F) Weight: 212 lbs 10/18/2010 Blood Pressure 1: 120/74 Code: 8480-6 BMI: 35.9 Code: 33682-3 Heart Rate 1: 72 bpm Height: 5'5" Temperature: 36.3 (C) / 97.4 (F) Weight: 216 lbs 09/19/2010 Blood Pressure 1: 124/80 Code: 8480-6 BMI: 35.4 Code: 91652-4 Heart Rate 1: 76 bpm Height: 5'5" Temperature: 36.7 (C) / 98.0 (F) Weight: 213 lbs 09/06/2010 Blood Pressure 1: 108/60 Code: 8480-6 Heart Rate 1: 76 bpm Temperature: 37.0 (C) / 98.6 (F) Weight: 218 lbs 08/10/2010 Blood Pressure 1: 112/70 Code: 8480-6 Heart Rate 1: 72 bpm Temperature: 36.3 (C) / 97.3 (F) Weight: 211 lbs 05/11/2010 Blood Pressure 1: 108/60 Code: 8480-6 Heart Rate 1: 76 bpm Temperature: 36.2 (C) / 97.2 (F) Weight: 212 lbs 04/06/2010 Blood Pressure 1: 104/68 Code: 8480-6 Heart Rate 1: 64 bpm Respiratory Rate: 28 bpm SpO2: 97% Temperature: 36.6 (C) / 97.8 (F) We ight: 211 lbs 02/09/2010 Blood Pressure 1: 120/72 Code: 8480-6 Heart Rate 1: 62 bpm Temperature: 36.5 (C) / 97.7 (F) Weight: 215 lbs 01/05/2010 Blood Pressure 1: 122/74 Code: 8480-6 Heart Rate 1: 78 bpm Temperature: 36.7 (C) / 98.0 (F) Weight: 12/07/2009 Blood Pressure 1: 108/68 Code: 8480-6 Heart Rate 1: 76 bpm Temperature: 37.1 (C) / 98.7 (F) Weight: 222 lbs 11/08/2009 Blood Pressure 1: 114/66 Code: 8480-6 Heart Rate 1: 80 bpm Temperature: 36.6 (C) / 97.9 (F) 10/24/2009 Blood Pressure 1: 122/80 Code: 8480-6 Heart Rate 1: 84 bpm Temperature: 36.4 (C) / 97.5 (F) 07/25/2009 Blood Pressure 1: 128/80 Code: 8480-6 Heart Rate 1: 76 bpm Temperature: 36.7 (C) / 98.1 (F) Weight: 223 lbs 05/26/2009 Blood Pressure 1: 122/78 Code: 8480-6 BMI: 37.4 Code: 95425-0 Heart Rate 1: 84 bpm Height: 5'5" Weight: 225 lbs Functional Status No Functional Status data Reason For Visit Reason For Visit Effective Dates Notes dyspnea 06/16/2019 fever 06/08/2019 fever 05/26/2019 dyspnea 05/13/[address] of chest this am follow up 05/06/2019 follow up 04/29/2019 ER fwup back pain 04/16/2019 dyspnea 04/08/2019 follow up 01/22/2019 ER fwup follow up 01/07/2019 follow up 12/24/2018 ER fwup diabetes mellitus 11/20/2018 headache 11/04/2018 well woman exam (65+ years) 09/18/2018 Medicare Lizzette ual wrist pain 09/08/2018 left wrist pruritus 08/20/2018 follow up 06/19/2018 dyspnea 06/09/2018 Alternating with low blood pressure follow up 05/21/2018 Hospital fwup follow up 04/16/2018 ER fwup myalgias 04/01/2018 painful urination 03/17/2018 follow up 03/06/2018 ER fwup neck pain 02/05/2018 right side neck pain 01/20/2018 muscle relaxers are not working follow up 12/25/2017 pruritus 12/17/2017 follow up 10/30/2017 follow up 10/23/2017 Hospital fwup from [facility] Annual Checkup 09/17/2017 Wellness Physical fo r [employer] injection(s) 08/26/2017 cough 07/19/2017 Patient currently on levaquin and tessalon perles from ER rash 05/29/2017 Has finished flucona zole and still using nystatin powder follow up 05/07/2017 ER followup from follow up 03/18/2017 follow up 02/27/2017 hyperglycemia 02/22/2017 follow up 01/23/2017 ER fwup follow up 12/20/2016 3mo fwup back pain 10/08/2016 follow up 09/19/2016 1mo fwup follow up 08/20/2016 Patient states she d idn't get refill of lorazepam from 07/24/16 follow up 06/19/2016 1 week hospital foll owup follow up 06/04/2016 1mo fwup follow up 05/02/2016 Hospital fwup follow up 04/03/2016 dyspnea 02/29/2016 low grade 99s follow up 02/02/2016 ER fwup diabetes mellitus 01/05/2016 painful urination 12/05/2015 follow up 10/26/2015 ER visit from at [facility] [place] for COPD Exacerbation follow up 10/05/2015 ER Visit gait abnormality 09/15/2015 Patient requesting kelly pineda paperwork to be filled out disturbances of thinking 08/24/2015 follow up 07/05/2015 4wk fwup follow up 06/06/2015 Hospital [facility] cough 05/23/2015 follow up 05/05/2015 dyspnea 03/30/2015 [employer] needs new orde r for O2 abdominal pain 02/03/2015 cyst 12/29/2014 vs abscess follow up 09/02/2014 Hospital [facility] headache 08/25/2014 facial drooping follow up 04/01/2014 ER follow up 03/16/2014 1wk fwup follow up 03/09/2014 1mo fwup and bronchi tis fwup follow up 03/03/2014 2 day follow up 03/01/2014 ER follow up 02/09/2014 [facility] gastroesophageal reflux 12/23/2013 painful urination 10/30/2013 UTI urinary urgency 10/21/2013 skin lesion 10/05/2013 flank pain 08/04/2013 injection(s) 07/13/2013 Kenalog 40mg polyuria 07/03/2013 follow up 05/27/2013 would like medicatio n change from bystolic flank pain 05/25/2013 injection(s) 05/04/2013 b12 shot Vitamin B-12 Deficiency 04/17/2013 needs B12 shot follow up 04/06/2013 Took last metformin this morning, not monitoring BS routinely follow up 11/10/2012 ER fwup follow up 09/02/2012 1mo fwup follow up 08/04/2012 2wk fwup follow up 07/21/2012 [facility] an sore throat 07/02/2012 headache 06/25/2012 request migraine gilbert t follow up 06/24/2012 1mo fwup follow up 05/20/2012 2wk fwup dyskinesia or tremor 05/08/2012 follow up 04/22/2012 fainting shoulder pain 02/13/2012 refill trazadone to [facility] follow up 01/28/2012 ER fwup follow up 12/26/2011 1mo fwup follow up 11/14/2011 2mo fwup follow up 09/12/2011 1mo fwup follow up 08/15/2011 ER fwup follow up 08/09/2011 follow up 07/03/2011 hospital stay follow up 06/04/2011 2mo fwup headache 05/03/2011 follow up 04/05/2011 1mo fwup follow up 03/08/2011 2wk hospital fwup dizziness 01/24/2011 frequent falling follow up 01/02/2011 decreased enalapril and propranolol rash 12/07/2010 under breasts/abdome n fold follow up 11/16/2010 1mo fwup follow up 11/02/2010 ER fwup follow up 10/18/[address] Medrano last w [place], having increased allergy symptoms. Would like steroid shot. follow up 09/19/2010 follow up 09/06/2010 1mo fwup follow up 08/10/2010 3 month f/u - Pt sta jeni she is having trouble doing any of the activities she used to, states she wants her life back. Lower back continues to hurt. States all the sudden the upper back began hurting approx 3 weeks ago. Can't get comfortable, describes as laying on marbles. States she doesn't want to go out of the house due to intense pain from accident along with migraines. ~generic 05/11/2010 3 month f/u - Having difficulty with allergies and sinus congestion, would like steriod injection. F/U on MRI and knotting of tissue on right AC. Pt states area is sore and notes some streaking. Experiencing an intermittant full body rash, shows up in the evening and only manifests for 2 hours and then resolves. follow up 04/06/2010 2wk hosp fwup arthralgia(s) 02/09/2010 follow up 01/05/2010 1 month f/u follow up 12/07/2009 from [facility], done with PT--finished about 2wks ago follow up 11/08/2009 2wk fwup follow up 10/24/2009 hosp fwup ~generic 07/25/2009 bilateral earlobe re dness/swelling, pain radiating into neck, refill Demerol ~generic 05/26/2009 FALLING A LOT, SAVEL LA NOT HELPING FIBROMYALGIA PAIN, LT HAND LACERATION-FELL INTO NAIL 05/25/09 Encounters Encounter Performer Location Codes Date ([id number]) OFFICE/OUTPATIENT VISIT EST Diagnosis: Acute bronchitis[ICD10: J20.9] Diagnosis: Colitis[ICD10: K52.9] Belia REID [facility] CPT-4: 59609 06/16/2019 ([id number]) OFFICE/OUTPATIENT VISIT EST Diagnosis: Diarrhea[ICD10: R19.7] Diagnosis: Abdominal bloating[ICD10: R14.0] [facility] CPT- 4: 61130 06/08/2019 ([id number]) OFFICE/OUTPATIENT VISIT EST Diagnosis: Acute febrile illness[ICD10: R50.9] Diagnosis: Colitis[ICD10: K52.9] [facility] CPT-4: 54445 05/26/2019 ([id number]) OFFICE/OUTPATIENT VISIT EST Diagnosis: Chronic obstructive pulmonary disease, unspecified[ICD10: J44.9] Diagnosis: Pulmonary fibrosis[ICD10: J84.10] Diagnosis: Intermittent stridor[ICD10: R06.1] Diagnosis: Muscle weakness[ICD10: M62.81] Belia REID [facility] CPT-4: 50703 05/13/2019 ([id number]) OFFICE/OUTPATIENT VISIT EST Diagnosis: Stridor[ICD10: R06.1] Diagnosis: COUGH[ICD10: R05] Belia REID [facility] CPT-4: 73908 05/06/2019 ([id number]) OFFICE/OUTPATIENT VISIT EST Diagnosis: Stridor[ICD10: R06.1] Diagnosis: Muscle, jerky movements (uncontrolled)[ICD10: G25.5] Belia REID DO [facility] CPT-4: 45689 04/29/2019 ([id number]) OFFICE/OUTPATIENT VISIT EST Diagnosis: Upper respiratory infection[ICD10: J06.9] Diagnosis: Flank pain[ICD10: R10.9] Diagnosis: Weight gain[ICD10: R63.5] Pattie AMBRIZ [facility] CPT-4: 14206 04/16/2019 ([id number]) OFFICE/OUTPATIENT VISIT EST Diagnosis: Generalized pruritus[ICD10: L29.9] Belia REID [employer] CPT-4: 49692 04/08/2019 ([id number]) OFFICE/OUTPATIENT VISIT EST Diagnosis: Acute bursitis of left shoulder[ICD10: M75.52] Diagnosis: Cervicalgia[ICD10: M54.2] Diagnosis: Chest wall pain[ICD10: R07.89] Belia REID [employer] CPT-4: 67770 01/22/2019 ([id number]) OFFICE/OUTPATIENT VISIT EST Diagnosis: Abdominal pain[ICD10: R10.9] Diagnosis: Pyelonephritis[ICD10: N12] Pattie DOMINGUEZ [facility] CPT-4: 09553 01/07/2019 ([id number]) OFFICE/OUTPATIENT VISIT EST Diagnosis: Low back pain[ICD10: M54.5] Diagnosis: Left lumbar radiculopathy[ICD10: M54.16] Diagnosis: Left flank pain[ICD10: R10.9] Diagnosis: Left lower quadrant pain[ICD10: R10.32] Diagnosis: FLU VACCINE[ICD10: Z23] Belia FREDERICK [facility] CPT-4: 16155 12/24/2018 ([id number]) OFFICE/OUTPATIENT VISIT EST Diagnosis: Migraine, unspecified, not intractable, without status migrainosus[ICD10: G43.909] Diagnosis: Fibromyalgia[ICD10: M79.7] Belia DOMINGUEZ [employer] CPT-4: 00553 11/20/2018 ([id number]) OFFICE/OUTPATIENT VISIT EST Diagnosis: Migraine, unspecified, intractable, without status migrainosus[ICD10: G43.919] Diagnosis: Acute sinusitis, unspecified[ICD10: J01.90] Pattie REID [employer] CPT-4: 32838 11/04/2018 ([id number]) OFFICE/OUTPATIENT VISIT EST Diagnosis: Pain in left wrist[ICD10: M25.532] Diagnosis: Other dorsalgia[ICD10: M54.89] Pattie REID [employer] CPT-4: 28225 09/08/2018 ([id number]) OFFICE/OUTPATIENT VISIT EST Diagnosis: Acute stress reaction[ICD10: F43.0] Diagnosis: Pruritus, unspecified[ICD10: L29.9] 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, 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] Belia REID DO [facility] CPT-4: 29447 08/20/2018 ([id number]) OFFICE/OUTPATIENT VISIT EST Diagnosis: Hypotension due to drugs[ICD10: I95.2] Diagnosis: Paroxysmal atrial fibrillation[ICD10: I48.0] Diagnosis: Localized edema[ICD10: R60.0] Belia REID DO [facility] CPT-4: 78142 06/19/2018 ([id number]) OFFICE/OUTPATIENT VISIT EST Diagnosis: Generalized hyperhidrosis[ICD10: R61] Diagnosis: Essential (primary) hypertension[ICD10: I10] Diagnosis: Supraventricular tachycardia[ICD10: I47.1] Belia REID [employer] [facility] CPT-4: 73743 06/09/2018 ([id number]) OFFICE/OUTPATIENT VISIT EST Diagnosis: Stridor[ICD10: R06.1] Diagnosis: Dependence on supplemental oxygen[ICD10: Z99.81] Diagnosis: Weakness[ICD10: R53.1] Diagnosis: Supraventricular tachycardia[ICD10: I47.1] Belia REID DO [facility] CPT-4: 11087 05/21/2018 ([id number]) OFFICE/OUTPATIENT VISIT EST Diagnosis: Cervical disc disorder with radiculopathy, unspecified cervical region[ICD10: M50.10] Belia REID DO [facility] CPT-4: 87142 04/16/2018 ([id number]) OFFICE/OUTPATIENT VISIT EST Diagnosis: Migraine, unspecified, intractable, without status migrainosus[ICD10: G43.919] Diagnosis: Fibromyalgia[ICD10: M79.7] Pattie DAILEYER [employer] [facility] CPT-4: 78297 04/01/2018 ([id number]) NURSE/OUTPATIENT VISIT EST Diagnosis: Hematuria, unspecified[ICD10: R31.9] Diagnosis: Dysuria[ICD10: R30.0] Belia REID DO [facility] CPT-4: 18167 03/17/2018 ([id number]) OFFICE/OUTPATIENT VISIT EST Diagnosis: Erythema intertrigo[ICD10: L30.4] Diagnosis: Chronic obstructive pulmonary disease with (acute) exacerbation[ICD10: J44.1] Diagnosis: Type 2 diabetes mellitus with hyperglycemia[ICD10: E11.65] Belia REID DO [facility] CPT-4: 55715 03/06/2018 ([id number]) OFFICE/OUTPATIENT VISIT EST Diagnosis: Cervicalgia[ICD10: M54.2] Pattie AMBRIZ [facility] CPT-4: 86725 02/05/2018 ([id number]) OFFICE/OUTPATIENT VISIT EST Diagnosis: Candidiasis of skin and nail[ICD10: B37.2] Diagnosis: Cervicalgia[ICD10: M54.2] Pattie AMBRIZ [facility] CPT-4: 56907 01/20/2018 ([id number]) OFFICE/OUTPATIENT VISIT EST Diagnosis: Pain in thoracic spine[ICD10: M54.6] Diagnosis: Radiculopathy, thoracic region[ICD10: M54.14] Belia REID DO [facility] CPT-4: 53146 12/25/2017 ([id number]) OFFICE/OUTPATIENT VISIT EST Diagnosis: Pain in thoracic spine[ICD10: M54.6] Diagnosis: Other muscle spasm[ICD10: M62.838] Diagnosis: FLU VACCINE[ICD10: Z23] Diagnosis: PNEUMOCOCCAL VACCINE[ICD10: Z23] Belia REID DO [facility] CPT-4: 12474 12/17/2017 ([id number]) OFFICE/OUTPATIENT VISIT EST Diagnosis: Chronic obstructive pulmonary disease with (acute) exacerbation[ICD10: J44.1] Belia REID DO [facility] CPT- 4: 13468 10/30/2017 ([id number]) OFFICE/OUTPATIENT VISIT EST Diagnosis: Chronic obstructive pulmonary disease with acute lower respiratory infection[ICD10: J44.0] Diagnosis: Mild intermittent asthma with (acute) exacerbation[ICD10: J45.21] Belia REID DO [facility] CPT-4: 78486 10/23/2017 ([id number]) NURSE/OUTPATIENT VISIT EST Diagnosis: Migraine, unspecified, not intractable, without status migrainosus[ICD10: G43.909] Belia REID DO [facility] CPT - 4: 51036 08/26/2017 ([id number]) OFFICE/OUTPATIENT VISIT EST Diagnosis: Urinary tract infection, site not specified[ICD10: N39.0] Diagnosis: Encounter for screening for osteoporosis[ICD10: Z13.820] Diagnosis: Encounter for screening mammogram for malignant neoplasm of breast[ICD10: Z12.31] Diagnosis: Acute bronchitis, unspecified[ICD10: J20.9] Pattie REID DO [facility] CPT-4: 86972 07/19/2017 ([id number]) OFFICE/OUTPATIENT VISIT EST Diagnosis: Rash and other nonspecific skin eruption[ICD10: R21] Pattie REID DO [facility] CPT-4: 93101 05/29/2017 ([id number]) OFFICE/OUTPATIENT VISIT EST Diagnosis: Diarrhea, unspecified[ICD10: R19.7] Diagnosis: Tinea corporis[ICD10: B35.4] Diagnosis: Tinea cruris[ICD10: B35.6] Diagnosis: Migraine, unspecified, not intractable, without status migrainosus[ICD10: G43.909] Belia REDI [employer] [facility] CPT - 4: 92605 05/07/2017 ([id number]) OFFICE/OUTPATIENT VISIT EST Diagnosis: Stridor[ICD10: R06.1] Diagnosis: Chronic obstructive pulmonary disease with (acute) exacerbation[ICD10: J44.1] Belia REID [employer] [facility] CPT- 4: 65076 03/18/2017 ([id number]) OFFICE/OUTPATIENT VISIT EST Diagnosis: Type 2 diabetes mellitus with hyperglycemia[ICD10: E11.65] Belia REID [facility] CPT-4: 20509 02/27/2017 OFFICE/OUTPATIENT VISIT EST Diagnosis: Type 2 diabetes mellitus with hyperglycemia[ICD10: E11.65] Pattie REID DO [facility] CPT-4: 51047 02/22/2017 ([id number]) OFFICE/OUTPATIENT VISIT EST Diagnosis: Urinary tract infection, site not specified[ICD10: N39.0] Diagnosis: Pneumonia, unspecified organism[ICD10: J18.9] Diagnosis: Type 2 diabetes mellitus with hyperglycemia[ICD10: E11.65] Belia REID DO [facility] CPT-4: 19810 01/23/2017 ([id number]) OFFICE/OUTPATIENT VISIT EST Diagnosis: Type 2 diabetes mellitus with hyperglycemia[ICD10: E11.65] Diagnosis: Localized edema[ICD10: R60.0] Diagnosis: PNEUMOCOCCAL VACCINE[ICD10: Z23] Diagnosis: FLU VACCINE[ICD10: Z23] Belia FREDERICK [facility] CPT-4: 13983 12/20/2016 OFFICE/OUTPATIENT VISIT EST Diagnosis: Pain in thoracic spine[ICD10: M54.6] Diagnosis: Low back pain[ICD10: M54.5] Diagnosis: Cervicalgia[ICD10: M54.2] Diagnosis: Cough[ICD10: R05] Celeste Ferreira BELIA REID [facility] CPT-4: 31311 10/08/2016 ([id number]) OFFICE/OUTPATIENT VISIT EST Diagnosis: Primary insomnia[ICD10: F51.01] Diagnosis: Migraine, unspecified, not intractable, without status migrainosus[ICD10: G43.909] Diagnosis: Type 2 diabetes mellitus with hyperglycemia[ICD10: E11.65] Belia REID DO [facility] CPT-4: 46816 09/19/2016 ([id number]) OFFICE/OUTPATIENT VISIT EST Diagnosis: Migraine, unspecified, not intractable, without status migrainosus[ICD10: G43.909] Diagnosis: Generalized abdominal pain[ICD10: R10.84] Diagnosis: Cough[ICD10: R05] Belia Franklin REID [facility] CPT-4: 41909 08/20/2016 ([id number]) OFFICE/OUTPATIENT VISIT EST Diagnosis: Chronic obstructive pulmonary disease, unspecified[ICD10: J44.9] Diagnosis: Stridor[ICD10: R06.1] Belia REID DO [facility] CPT-4: 02114 06/19/2016 ([id number]) OFFICE/OUTPATIENT VISIT EST Diagnosis: Chronic obstructive pulmonary disease, unspecified[ICD10: J44.9] Diagnosis: Personal history of urinary (tract) infections[ICD10: Z87.440] Belia REID DO [facility] CPT-4: 59256 06/04/2016 ([id number]) OFFICE/OUTPATIENT VISIT EST Diagnosis: Stridor[ICD10: R06.1] Diagnosis: Chronic obstructive pulmonary disease with acute lower respiratory infection[ICD10: J44.0] Diagnosis: Other specified diseases of intestine[ICD10: K63.89] Diagnosis: Cystitis, unspecified without hematuria[ICD10: N30.90] Belia REID DO [facility] CPT-4: 07228 05/02/2016 ([id number]) OFFICE/OUTPATIENT VISIT EST Diagnosis: Fibromyalgia[ICD10: M79.7] Diagnosis: Urinary tract infection, site not specified[ICD10: N39.0] Belia REID DO [facility] CPT-4: 52767 04/03/2016 ([id number]) OFFICE/OUTPATIENT VISIT EST Diagnosis: Unspecified asthma, uncomplicated[ICD10: J45.909] Diagnosis: Cough[ICD10: R05] Lidia REID DO [facility] T-4: 19579 02/29/2016 ([id number]) OFFICE/OUTPATIENT VISIT EST Diagnosis: Migraine, unspecified, intractable, without status migrainosus[ICD10: G43.919] Diagnosis: Urinary tract infection, site not specified[ICD10: N39.0] Belia REID DO [facility] CPT-4: 94742 02/02/2016 ([id number]) OFFICE/OUTPATIENT VISIT EST Diagnosis: Urinary tract infection, site not specified[ICD10: N39.0] Diagnosis: Unspecified abdominal pain[ICD10: R10.9] Diagnosis: Pain in thoracic spine[ICD10: M54.6] Diagnosis: Type 2 diabetes mellitus with diabetic neuropathic arthropathy[ICD10: E11.610] Belia Franklin CORNELLLINE Yuridia REID [employer] [facility] CPT-4: 80239 12/05/2015 ([id number]) OFFICE/OUTPATIENT VISIT EST Diagnosis: Chronic obstructive pulmonary disease with (acute) exacerbation[ICD10: J44.1] Diagnosis: Migraine, unspecified, not intractable, without status migrainosus[ICD10: G43.909] Lidia CORNELLLINE Yuridia REID [employer] [facility] CPT -4: 63943 10/26/2015 ([id number]) OFFICE/OUTPATIENT VISIT EST Diagnosis: Hematuria, unspecified[ICD10: R31.9] Diagnosis: Urinary tract infection, site not specified[ICD10: N39.0] Lidia HSUQUELINE BushraMayda FRANKLIN [employer] [facility] CPT-4: 70040 10/05/2015 OFFICE/OUTPATIENT VISIT EST Diagnosis: Chronic obstructive pulmonary disease, unspecified[ICD10: J44.9] Diagnosis: Muscle weakness (generalized)[ICD10: M62.81] Diagnosis: Polyneuropathy, unspecified[ICD10: G62.9] Diagnosis: Other intervertebral disc degeneration, 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] Diagnosis: Fibromyalgia[ICD10: M79.7] Belia Franklin HSUQUELINE Yuridia DOMINGUEZ [employer] [facility] CPT-4: 31060 09/15/2015 ([id number]) OFFICE/OUTPATIENT VISIT EST Diagnosis: Disorientation, unspecified[ICD10: R41.0] Diagnosis: Headache[ICD10: R51] Diagnosis: Paresthesia of skin[ICD10: R20.2] Lidia CORNELLHERNANDEZ Paredes Yuridia REID [employer] [facility] CPT-4: 93459 08/24/2015 ([id number]) OFFICE/OUTPATIENT VISIT EST Diagnosis: Type 2 diabetes mellitus with hyperglycemia[ICD10: E11.65] Diagnosis: Chronic obstructive pulmonary disease with acute lower respiratory infection[ICD10: J44.0] Belia Franklin HSUQUELINE BushraMayda [employer] [facility] CPT-4: 69949 07/05/2015 ([id number]) OFFICE/OUTPATIENT VISIT EST Diagnosis: Mild intermittent asthma with (acute) exacerbation[ICD10: J45.21] Diagnosis: Chronic obstructive pulmonary disease, unspecified[ICD10: J44.9] Belia REID DO [facility] CPT-4: 81961 06/06/2015 ([id number]) OFFICE/OUTPATIENT VISIT EST Diagnosis: Chronic obstructive pulmonary disease with (acute) exacerbation[ICD10: J44.1] Lidia REID DO [facility] CPT- 4: 17316 05/23/2015 ([id number]) OFFICE/OUTPATIENT VISIT EST Diagnosis: Type 2 diabetes mellitus with hyperglycemia[ICD10: E11.65] Diagnosis: Functional dyspepsia[ICD10: K30] Belia REID DO [facility] CPT-4: 54309 05/05/2015 ([id number]) OFFICE/OUTPATIENT VISIT EST Diagnosis: Type 2 diabetes mellitus with hyperglycemia[ICD10: E11.65] Diagnosis: Glycosuria[ICD10: R81] Diagnosis: Urinary tract infection, site not specified[ICD10: N39.0] Belia REID [facility] CPT-4: 15395 03/30/2015 ([id number]) OFFICE/OUTPATIENT VISIT EST Diagnosis: Generalized abdominal pain[ICD10: R10.84] Diagnosis: Diarrhea, unspecified[ICD10: R19.7] Diagnosis: Urinary tract infection, site not specified[ICD10: N39.0] Diagnosis: Gastro-esophageal reflux disease without esophagitis[ICD10: K21.9] Belia REID [facility] CPT-4: 51398 02/03/2015 ([id number]) OFFICE/OUTPATIENT VISIT EST Diagnosis: Other specified noninflammatory disorders of vagina[ICD10: N89.8] Diagnosis: Follicular disorder, unspecified[ICD10: L73.9] Diagnosis: Functional dyspepsia[ICD10: K30] Diagnosis: FLU VACCINE[ICD10: Z23] Belia FREDERICK [employer] [facility] CPT-4: 14851 12/29/2014 ([id number]) OFFICE/OUTPATIENT VISIT EST 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] Diagnosis: RESTLESS LEGS SYNDROME[ICD9: 333.94] Diagnosis: MIGRAINE NOS/NOT INTRCBL[ICD9: 346.90] Belia [facility] CPT-4: 47050 09/02/2014 ([id number]) OFFICE/OUTPATIENT VISIT EST Diagnosis: Cervical radiculopathy[ICD9: 723.4] Diagnosis: Cervicalgia[ICD9: 723.1] Diagnosis: Degenerative disc disease, cervical[ICD9: 722.4] 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I[ICD9: 250.00] Belia [facility] CPT-4: 06859 04/01/2014 OFFICE/OUTPATIENT VISIT EST Diagnosis: Reactive airway disease[ICD9: 493.90] Belia REID [facility] CPT-4: 99908 03/16/2014 ([id number]) OFFICE/OUTPATIENT VISIT EST Diagnosis: BRONCHITIS, ACUTE[ICD9: 466.0] Diagnosis: Reactive airway disease[ICD9: 493.90] Belia REID [facility] CPT-4: 39856 03/09/2014 OFFICE/OUTPATIENT VISIT EST Diagnosis: BRONCHITIS, ACUTE[ICD9: 466.0] Diagnosis: WHEEZING[ICD9: 786.07] Huong Peguero [employer] [facility] CPT-4: 19882 03/03/2014 OFFICE/OUTPATIENT VISIT EST Diagnosis: BRONCHITIS, ACUTE[ICD9: 466.0] Diagnosis: WHEEZING[ICD9: 786.07] Huong Peguero [employer] [facility] CPT-4: 14159 03/01/2014 ([id number]) OFFICE/OUTPATIENT VISIT EST Diagnosis: GERD[ICD9: 530.81] Diagnosis: ARTHRALGIA-MULTIPLE SITES[ICD9: 719.49] Diagnosis: LUMB/LUMBOSAC DISC DEGEN[ICD9: 722.52] Diagnosis: - I - FIBROMYALGIA[ICD9: 729.1] Belia REID [facility] CPT-4: 57086 02/09/2014 ([id number]) OFFICE/OUTPATIENT VISIT EST Diagnosis: Peptic ulcer disease[ICD9: 533.90] Diagnosis: RESTLESS LEGS SYNDROME[ICD9: 333.94] Diagnosis: Neuropathy[ICD9: 355.9] Belia FREDERICK DO [facility] CPT-4: 13597 12/23/2013 ([id number]) OFFICE/OUTPATIENT VISIT EST Diagnosis: URINARY TRACT INFECTION[ICD9: 599.0] Belia REID DO [facility] CPT-4: 95836 10/30/2013 ([id number]) OFFICE/OUTPATIENT VISIT EST Diagnosis: Flank pain[ICD9: 789.00] Belia MARTINEZ [facility] CPT-4: 77011 10/21/2013 ([id number]) OFFICE/OUTPATIENT VISIT EST Diagnosis: INFLAMED SEBORR KERATOS[ICD9: 702.11] Diagnosis: Brachioradial pruritus[ICD9: 698.9] Diagnosis: ASTHMA NOS[ICD9: 493.90] Belia MARTINEZ [facility] CPT-4: 88333 10/05/2013 ([id number]) OFFICE/OUTPATIENT VISIT EST Diagnosis: HYPERTENSION[ICD9: 401.9] Diagnosis: - I - FIBROMYALGIA[ICD9: 729.1] Diagnosis: DIZZINESS/VERTIGO[ICD9: 780.4] Diagnosis: MIGRAINE NOS/NOT INTRCBL[ICD9: 346.90] Diagnosis: Diabetic peripheral neuropathy[ICD9: 250.60] Diagnosis: Flank pain[ICD9: 789.00] Belia MARTINEZ [facility] CPT-4: 29928 08/04/2013 ([id number]) OFFICE/OUTPATIENT VISIT EST Diagnosis: ALLERGIC RHINITIS[ICD9: 477.9] Belia REID DO [facility] CPT-4: 52980 07/13/2013 OFFICE/OUTPATIENT VISIT EST Diagnosis: URINARY TRACT INFECTION[ICD9: 599.0] Huong Osborne KRAIG REID DO [facility] CPT-4: 87943 07/03/2013 OFFICE/OUTPATIENT VISIT EST Diagnosis: HYPERTENSION[ICD9: 401.9] Diagnosis: URINARY TRACT INFECTION[ICD9: 599.0] Diagnosis: BACKACHE[ICD9: 724.5] Diagnosis: URINARY INCONTINENCE[ICD9: 788.30] Huong India CORNELLKIMI MARIE Yuridia REID [facility] CPT-4: 02084 05/27/2013 ([id number]) OFFICE/OUTPATIENT VISIT EST Diagnosis: Flank pain[ICD9: 789.00] Belia Oreisabellaannie HSUBELIA BushraMayda KIESHA POOLE [facility] CPT-4: 37106 05/25/2013 ([id number]) OFFICE/OUTPATIENT VISIT EST Diagnosis: B-COMPLEX DEFIC NEC[ICD9: 266.2] Belia Yandelnilson BELIA Yuridia REID [facility] CPT-4: 11208 05/04/2013 ([id number]) OFFICE/OUTPATIENT VISIT EST Diagnosis: ALLERGIC RHINITIS[ICD9: 477.9] Diagnosis: Vitamin B12 deficiency[ICD9: 266.2] Belia Yandelnilson THOMPSON Yuridia [facility] CPT-4: 79671 04/17/2013 ([id number]) OFFICE/OUTPATIENT VISIT EST 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I[ICD9: 250.00] Diagnosis: URINARY TRACT INFECTION[ICD9: 599.0] Diagnosis: DIZZINESS/VERTIGO[ICD9: 780.4] Diagnosis: DIARRHEA[ICD9: 787.91] Belia Yandelnilson BRUNSON BushraMayda RALF Peguero [facility] CPT-4: 00874 04/06/2013 ([id number]) OFFICE/OUTPATIENT VISIT EST Diagnosis: URINARY TRACT INFECTION[ICD9: 599.0] Diagnosis: URINARY RETENTION[ICD9: 788.20] Belia Yandelnilson BRUNSON BushraMayda FRANKLIN [facility] CPT-4: 10884 11/10/2012 ([id number]) OFFICE/OUTPATIENT VISIT EST Diagnosis: TACHYCARDIA[ICD9: 785.0] Diagnosis: SYNCOPE AND COLLAPSE[ICD9: 780.2] Diagnosis: CONSCIOUSNS ALTERAT NEC[ICD9: 780.09] Belia CALVO BushraMayda FRANKLIN [facility] CPT-4: 06587 09/02/2012 OFFICE/OUTPATIENT VISIT EST Diagnosis: TACHYCARDIA[ICD9: 785.0] Diagnosis: SYNCOPE AND COLLAPSE[ICD9: 780.2] Beliahanna REID DO [facility] CPT-4: 56469 08/04/2012 ([id number]) OFFICE/OUTPATIENT VISIT EST Diagnosis: Loss of consciousness[ICD9: 780.09] Diagnosis: Tachycardia[ICD9: 785.0] Diagnosis: MALAISE AND FATIGUE[ICD9: 780.79] Belia REID [employer] [facility] CPT-4: 84710 07/21/2012 ([id number]) OFFICE/OUTPATIENT VISIT EST Diagnosis: BRONCHITIS, ACUTE[ICD9: 466.0] Diagnosis: ASTHMA NOS[ICD9: 493.90] Belia POOLE [facility] CPT-4: 11292 07/02/2012 ([id number]) OFFICE/OUTPATIENT VISIT EST Diagnosis: CEPHALGIA[ICD9: 784.0] Belia Peguero [employer] [facility] CPT-4: 53538 06/25/2012 ([id number]) OFFICE/OUTPATIENT VISIT EST Diagnosis: GERD[ICD9: 530.81] Diagnosis: DIARRHEA[ICD9: 787.91] Diagnosis: URINARY TRACT INFECTION[ICD9: 599.0] Diagnosis: ASTHMA NOS[ICD9: 493.90] Diagnosis: ALLERGIC RHINITIS[ICD9: 477.9] Belia REID [facility] CPT-4: 40777 06/24/2012 ([id number]) OFFICE/OUTPATIENT VISIT EST Diagnosis: MIGRAINE NOS/NOT INTRCBL[ICD9: 346.90] Diagnosis: TREMOR NEC[ICD9: 333.1] Diagnosis: CHRONIC PAIN SYNDROME[ICD9: 338.4] Belia BASS MARIE Yuridia REID [employer] [facility] CPT-4: 38508 05/20/2012 ([id number]) OFFICE/OUTPATIENT VISIT EST Diagnosis: DIZZINESS/VERTIGO[ICD9: 780.4] Diagnosis: PALPITATIONS[ICD9: 785.1] Diagnosis: TREMOR NEC[ICD9: 333.1] Diagnosis: ANXIETY STATE NOS[ICD9: 300.00] Diagnosis: POSTTRAUMATIC STRESS DISORDER[ICD9: 309.81] Belia REID [employer] [facility] CPT-4: 75081 05/08/2012 ([id number]) OFFICE/OUTPATIENT VISIT EST Diagnosis: MIGRAINE NOS/NOT INTRCBL[ICD9: 346.90] Diagnosis: FIBROMYALGIA[ICD9: 729.1] Diagnosis: SYNCOPE AND COLLAPSE[ICD9: 780.2] Diagnosis: Diabetic peripheral neuropathy[ICD9: 250.60] Belia TomlinsonMayda FRANKLIN [employer] CPT-4: 42865 04/22/2012 OFFICE/OUTPATIENT VISIT EST Diagnosis: ROTATOR CUFF DIS NEC[ICD9: 726.19] Diagnosis: JOINT PAIN-SHLDER[ICD9: 719.41] Diagnosis: DYSPEPSIA[ICD9: 536.8] Belia CORNELLLINE BushraMayda RALF [employer] CPT-4: 89074 02/13/2012 ([id number]) OFFICE/OUTPATIENT VISIT EST Diagnosis: MIGRAINE NOS/NOT INTRCBL[ICD9: 346.90] Diagnosis: GERD[ICD9: 530.81] Diagnosis: DYSPEPSIA[ICD9: 536.8] Belia CORNELLLINE BushraMayda RALF [employer] CPT-4: 80955 01/28/2012 OFFICE/OUTPATIENT VISIT EST Diagnosis: CEPHALGIA[ICD9: 784.0] Diagnosis: MIGRAINE NOS/NOT INTRCBL[ICD9: 346.90] Diagnosis: GERD[ICD9: 530.81] Diagnosis: INSOMNIA NOS[ICD9: 780.52] Belia HSUQUELINE BushraMayda RAND DOMINGUEZ [employer] [facility] CPT-4: 36663 12/26/2011 ([id number]) OFFICE/OUTPATIENT VISIT EST Diagnosis: CEPHALGIA[ICD9: 784.0] Diagnosis: MIGRAINE NOS/NOT INTRCBL[ICD9: 346.90] Diagnosis: MALAISE AND FATIGUE[ICD9: 780.79] Diagnosis: FIBROMYALGIA[ICD9: 729.1] Diagnosis: ALLERGIC RHINITIS[ICD9: 477.9] Belia CORNELLLINE Bushra Mayda [facility] [employer] CPT-4: 26308 11/14/2011 ([id number]) OFFICE/OUTPATIENT VISIT EST Diagnosis: MALAISE AND FATIGUE[ICD9: 780.79] Diagnosis: MUSCLE WEAKNESS-GENERAL[ICD9: 728.87] Diagnosis: MIGRAINE NOS/NOT INTRCBL[ICD9: 346.90] Diagnosis: JOINT PAIN-SHLDER[ICD9: 719.41] Belia REID [facility] CPT-4: 93431 09/12/2011 ([id number]) OFFICE/OUTPATIENT VISIT EST Diagnosis: CONCUSSION[ICD9: 850.9] Diagnosis: Ataxia[ICD9: 781.3] Diagnosis: DIZZINESS/VERTIGO[ICD9: 780.4] Belia REID [facility] CPT-4: 61483 08/15/2011 ([id number]) OFFICE/OUTPATIENT VISIT EST Diagnosis: THROMBOPHLEBITIS[ICD9: 451.9] Diagnosis: Subacromial bursitis[ICD9: 726.19] Diagnosis: ALLERGIC RHINITIS[ICD9: 477.9] Diagnosis: Lipoma[ICD9: 214.9] [facility]: 16215 08/09/2011 ([id number]) OFFICE/OUTPATIENT VISIT EST Diagnosis: THROMBOPHLEBITIS[ICD9: 451.9] Diagnosis: Arm pain[ICD9: 729.5] Diagnosis: Clostridium difficile colitis[ICD9: 008.45] Diagnosis: URINARY TRACT INFECTION[ICD9: 599.0] [facility] CPT-[facility]: 34933 07/03/2011 ([id number]) OFFICE/OUTPATIENT VISIT EST Diagnosis: ARTHRALGIA-MULTIPLE SITES[ICD9: 719.49] Diagnosis: Muscle cramp[ICD9: 729.82] Diagnosis: INSOMNIA NOS[ICD9: 780.52] [facility] C[facility]: 51944 06/04/2011 OFFICE/OUTPATIENT VISIT EST Diagnosis: Headache[ICD9: 784.0] Diagnosis: Allergic rhinitis[ICD9: 477.9] Belia [facility] CPT-4: 80109 05/03/2011 OFFICE/OUTPATIENT VISIT EST Diagnosis: LUMB/LUMBOSAC DISC DEGEN[ICD9: 722.52] Diagnosis: MIGRAINE NOS/NOT INTRCBL[ICD9: 346.90] Diagnosis: CHRONIC PAIN SYNDROME[ICD9: 338.4] Diagnosis: RESTLESS LEGS SYNDROME[ICD9: 333.94] Belia REID [facility] CPT-4: 22669 04/05/2011 OFFICE/OUTPATIENT VISIT EST Diagnosis: MIGRAINE NOS/NOT INTRCBL[ICD9: 346.90] Diagnosis: GERD[ICD9: 530.81] Belia REID [facility] CPT-4: 57629 03/08/2011 OFFICE/OUTPATIENT VISIT EST Diagnosis: URINARY TRACT INFECTION[ICD9: 599.0] Diagnosis: Vertigo[ICD9: 780.4] Diagnosis: GERD[ICD9: 530.81] Belia REID [facility] CPT-4: 31310 01/24/2011 OFFICE/OUTPATIENT VISIT EST Diagnosis: Hypotension[ICD9: 458.9] Diagnosis: Syncopal episodes[ICD9: 780.2] Diagnosis: MIGRAINE NOS/NOT INTRCBL[ICD9: 346.90] Diagnosis: MALAISE AND FATIGUE[ICD9: 780.79] Belia Humphriesisabellaannie HSUKOFFIHERNANDEZ [facility] CPT-4: 91676 01/02/2011 OFFICE/OUTPATIENT VISIT EST Diagnosis: Tinea cruris[ICD9: 110.3] Diagnosis: Intertrigo[ICD9: 695.89] Diagnosis: MIGRAINE NOS/NOT INTRCBL[ICD9: 346.90] Belia Yandelisabellaannie HSUQ JOHN PAUL [facility] CPT-4: 98235 12/07/2010 OFFICE/OUTPATIENT VISIT EST Diagnosis: PALPITATIONS[ICD9: 785.1] Diagnosis: ANXIETY STATE NOS[ICD9: 300.00] Belia [facility] CPT-4: 27263 11/16/2010 OFFICE/OUTPATIENT VISIT EST Diagnosis: URINARY TRACT INFECTION[ICD9: 599.0] Diagnosis: MIGRAINE NOS/NOT INTRCBL[ICD9: 346.90] Iraida CASILLAS [facility] CPT-[facility]: 16416 11/02/2010 OFFICE/OUTPATIENT VISIT EST Diagnosis: ALLERGIC RHINITIS[ICD9: 477.9] Diagnosis: ANXIETY STATE NOS[ICD9: 300.00] Belia CORNELLLINE [facility] CPT-4: 96372 10/18/2010 OFFICE/OUTPATIENT VISIT EST Belia BRUNSON [facility] CPT- 4: 76757 09/19/2010 OFFICE/OUTPATIENT VISIT EST Belia BRUNSON [facility] CPT- 4: 03497 09/06/2010 ([id number]) OFFICE/OUTPATIENT VISIT EST Belia CASILLAS UELINE [facility] CPT-4: 75449 08/10/2010 ([id number]) OFFICE/OUTPATIENT VISIT EST Belia CASILLAS UELINE [facility] CPT-4: 56057 05/11/2010 ([id number]) OFFICE/OUTPATIENT VISIT, EST Belia MEJIALINE [facility] CPT-4: 77747 04/06/2010 ([id number]) OFFICE/OUTPATIENT VISIT, EST Belia HSU QUELINE [facility] CPT-4: 96347 02/09/2010 ([id number]) OFFICE/OUTPATIENT VISIT, EST Belia HSU QUELINE [facility] CPT-4: 85959 01/05/2010 ([id number]) OFFICE/OUTPATIENT VISIT, EST Belia HSU QUELINE [facility] CPT-4: 72141 12/07/2009 ([id number]) OFFICE/OUTPATIENT VISIT, EST Belia HSU QUELINE [facility] CPT-4: 61637 11/08/2009 ([id number]) OFFICE/OUTPATIENT VISIT, EST Belia HSU QUELINE [facility] CPT-4: 36021 10/24/2009 ([id number]) OFFICE/OUTPATIENT VISIT, EST Belia HSU QUELINE [facility] CPT-4: 37233 07/25/2009 ([id number]) OFFICE/OUTPATIENT VISIT, EST Belia HSU QUELINE [facility] CPT-4: 58184 05/26/2009 Plan of Care Planned Activity Notes Codes Status Date Visit Diagnosis Plan: Colitis Discussion: Mariah/[place] gyl [place] Diet ICD-9 : 558.9 ICD-10 : K52.9 06/16/2019 Visit Diagnosis Plan: Acute bronchitis Discussion: Cov er with levaquin Increase SVNs with albuterol to QID Has oxygen using q HS routinely and prn To ER if oxygen levels drop or worsening respiratory symptoms ICD-9 : 466.0 ICD-10 : J20.9 06/16/2019 Patient Education: Levaquin- [employer] C[employer]on [id number] https://www.ShopTap/Neurotech/resources/getResource/61/[email or web address] Completed 06/16/2019 Visit Diagnosis Plan: Diarrhea Discussion: Vancomycin for 10 days and notify if not improving or worsening BLAND diet Hydrate ICD-9 : 787.91 ICD-10 : R19.7 06/08/2019 Appointment: Belia Reid WPtel: [facility] TELEMEDICINE 06/08/2019 Visit Diagnosis Plan: Colitis Discussion: Flagyl plus cipro to cover for both colitis and UTI Notify or to ER if worsening ICD-9 : 558.9 ICD-10 : K52.9 05/26/2019 Visit Diagnosis Plan: Acute febrile illness Discussion : Notify if worsens ICD-9 : 780.60 ICD-10 : R50.9 05/26/2019 Appointment: Belia Reid WPtel: [address] TELEMEDICINE 05/26/2019 Appointment: Pattie Sotomayor [address] RESCHEDULED 05/18/2019 Visit Diagnosis Plan: Chronic obstructive pulmonary di sease, unspecified Discussion: Recommend pulmonary rehab Patient states she never went to pulmonary rehab due to cost as well as transportation issues Finish trelagy Stop singulair Decrease hydroxyzine to 25mg po q HS Fwup [address] scan of Chest results discussed ICD-9 : 496 ICD-10 : J44.9 05/13/2019 Appointment: Belia Reid WPtel: [address] [place], [place] [id number] Hospital Follow Up 05/13/2019 Visit Diagnosis Plan: COUGH Discussion: Check CT scan of chest ICD-9 : 786.2 ICD-10 : R05 05/06/2019 Visit Diagnosis Plan: Stridor Discussion: Add Trelagy 1 p daily Add Singulair May need to see new director of rooms ICD-9 : 786.1 ICD-10 : R06.1 05/06/2019 Appointment: Belia Reid WPtel: [address] [place], [place] [phone] FOLLOW UP 05/06/2019 Patient Education: Singulair- [employer] Coupon [id number] https://www.ShopTap/Neurotech/resources/getResource/61/[email or web address]-wh Completed 05/06/2019 Appointment: Belia Reid WPtel: [address] [place] [address] US RESCHEDULED 04/30/2019 Visit Diagnosis Plan: Stridor Discussion: Continue SVN S with albuterol Finish Doxycycline Increase Hydroxyzine to 25mg TID Add Valium 5mg po q HS Recheck 1 week or to ER if worsening ICD-9 : 786.1 ICD-10 : R06.1 04/29/2019 Visit Diagnosis Plan: Muscle, jerky movements (uncontr olled) Discussion: Decrease gabapentin to 600mg once daily ICD-9 : 333.5 ICD-10 : G25.5 04/29/2019 Appointment: Belia Reid WPtel: [address] [place], [place] [phone] Hospital Follow Up 04/29/2019 Patient Education: Valium- [employer] Coupon [id number] https://www.ShopTap/sampleSnaptracs/resources/getResource/61/[email or web address] Completed 04/29/2019 Visit Diagnosis Plan: Flank pain Discussion: urine cul ture obtained. rocephin given in office to cover for pyelonephritis and patient's respiratory infection. flexeril refilled to cover for muscular ICD-9 : 789.09 ICD-10 : R10.9 04/16/2019 Visit Diagnosis Plan: Weight gain Discussion: discusse d that most likely r/t kidney infection but labs ordered including cbc, cmp, tsh, bnp. ICD-9 : 783.1 ICD-10 : R63.5 04/16/2019 Appointment: Pattie Sotomayor [address] [place] [address] ACUTE ILLNESS 04/16/2019 Patient Education: cyclobenzaprine- [employer] Coupon [id number] https://www.ShopTap/sampleSnaptracs/resources/getResource/61/[email or web address]-[email or web address] Completed 04/16/2019 Visit Diagnosis Plan: Migraine, unspecif ied, not intractable, without status migrainosus Discussion: Increase gabapentin to 600mg po BID ICD-9 : 346.90 ICD-10 : G43.909 04/08/2019 Visit Diagnosis Plan: Generalized pruritus Discussion: Hydroxyzine 25mg po TID for itching and anxiety ICD-9 : 698.9 ICD-10 : L29.9 04/08/2019 Appointment: Belia Reid WPtel: [address] [place] [address] ACUTE ILLNESS 04/08/2019 Visit Diagnosis Plan: Cervicalgia Discussion: Daily st retches Moist heat Topical muscle rub and continue baclofen Has pending appointment with Dr. Faulkner in February ICD-9 : 723.1 ICD-10 : M54.2 01/22/2019 Visit Diagnosis Plan: Acute bursitis of left shoulder Discussion: Injection as above Call in 4 days on if helping ICD-9 : 726.10 ICD-10 : M75.52 01/22/2019 Appointment: Belia Reid WPtel: [facility] [address] Hospital Follow Up 01/22/2019 Visit Diagnosis Plan: Abdominal pain Discussion: urine culture sent to assess for any infection. rocephin given in office to cover for pyelonephritis. instructed to push fluids. call office with any new or worsening symptoms. ICD-9 : 789.00 ICD-10 : R10.9 01/07/2019 Appointment: Pattie Sotomayor [address] [place] [address] ACUTE ILLNESS 01/07/2019 Visit Diagnosis Plan: Low back pain Discussion: Stat C T of abdomen/pelvis now ICD-9 : 724.2 ICD-10 : M54.5 12/24/2018 Appointment: Belia Reid WPtel: [address] [place] [address] FOLLOW UP 12/24/2018 Visit Diagnosis Plan: Migraine, unspecif ied, not intractable, without status migrainosus Discussion: Restart gabapentin at 300mg po BID Restart lorazepam Baclofen 10mg po TID Discussed trying to avoid pain meds as they do not keep the MCCORMICK away and may be causing rebound HAs ICD-9 : 346.90 ICD-10 : G43.909 11/20/2018 Visit Diagnosis Plan: Fibromyalgia Discussion: Lab nex t week with Vitamin D leve, B12, CMP, HbA1C ICD-9 : 729.1 ICD-10 : M79.7 11/20/2018 Appointment: Belia Reid WPtel: [address] [place] [address] ACUTE ILLNESS 11/20/2018 Patient Education: baclofen- [employer] Coupon [id number] https://www.Neurotech.com/samplemd/resources/getResource/61/3h4685b8-[email or web address]-83zx-[email or web address] Completed 11/20/2018 Visit Diagnosis Plan: Migraine, unspecif ied, intractable, without status migrainosus Discussion: toradol/phenergan given in o ffice (60 mg toradol, 12.5 mg phenergan). instructed to call if no improvement or worsening. instructed to follow up with slot attendant since headaches are occurring more frequently to make sure vision is not the cause. ICD-9 : 346.91 ICD-10 : G43.919 11/04/2018 Visit Diagnosis Plan: Acute sinusitis, unspecified Dis cussion: zithromax prescribed to cover for sinus infection due to length of symptoms and clinincal s/s. ICD-9 : 461.9 ICD-10 : J01.90 11/04/2018 Appointment: [facility] [facility] 11/04/2018 Appointment: Belia Reid WPtel: [address] [place], [place] [phone] US CANCELED 09/24/2018 Visit Diagnosis Plan: Type 2 diabetes me llitus with diabetic neuropathy, unspecified Discussion: Retry gabapentin 300mg po q HS ICD-9 : 250.60 ICD-10 : E11.40 09/18/2018 Visit Diagnosis Plan: Vitamin D deficiency, unspecifie d Discussion: Increase Vitamin D3 to 10,000 u daily ICD-9 : 268.9 ICD-10 : E55.9 09/18/2018 Visit Diagnosis Plan: Encounter for [facility] adult medical examination without abnormal findings Discussion: Mediterranean diet Combinati on of cardio and weight bearing exercise ICD-9 : V70.9 ICD-10 : Z00.00 09/18/2018 Visit Diagnosis Plan: Type 2 diabetes mellitus with hy perglycemia Discussion: Lab discussed Accuchecks daily Continue current meds Check CMP and HbA1C in 3mos then fwup ICD-9 : 250.02 ICD-10 : E11.65 09/18/2018 Visit Diagnosis Plan: Essential (primary) hypertension Discussion: Stable ICD-9 : 401.9 ICD-10 : I10 09/18/2018 Appointment: Belia Reid WPtel: [facility] Annual Well Visit 09/18/2018 Patient Education: [email or web address] C[employer]on [phone] [email or web address] Completed 09/18/2018 Visit Diagnosis Plan: Pain in left wrist Discussion: x ray of wrist ordered to be completed today. prednisone to assist with inflammation of tendon/joint space. instructed ptient to wear immobilizer to bed at night to assist with swelling an d pain. will order mri or refer to ortho pending results of xray. ICD-9 : 719.43 ICD-10 : M25.532 09/08/2018 Visit Diagnosis Plan: Other dorsalgia Discussion: will start with xray of chest to be completed today. push fluids and take tylenol prn. prednisone to cover inflammatory etiology. ICD-9 : 724.5 ICD-10 : M54.89 09/08/2018 Appointment: Pattie Sotomayor [address] [facility] [facility] ACUTE ILLNESS 09/08/2018 Patient Education: prednisone- [employer] Coupon [id number] [email or web address] Completed 09/08/2018 Visit Diagnosis Plan: Pruritus, unspecified Discussion : Hydroxyzine q HS for sleep/itching/stress ICD-9 : 698.9 ICD-10 : L29.9 08/20/2018 Visit Diagnosis Plan: Acute stress reaction Discussion : Trial of lexapro 10mg q HS Follow Up: 1 months ICD-9 : 308.9 ICD-10 : F43.0 08/20/2018 Visit Diagnosis Plan: 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 ACUTE ILLNESS 08/20/2018 Patient Education: Lexapro- [employer] Coupon [id number] Completed 08/20/2018 Patient Education: hydroxyzine HCl- [employer] Coupon [id number] Completed 08/20/2018 Care Plan: [facility] 2 6347-5 Pending 08/20/2018 Visit Diagnosis Plan: Paroxysmal atrial fibrillation D iscussion: Discuss eliquis need with cardiology at [facility] due to cost ICD-9 : 427.31 ICD-10 : I48.0 06/19/2018 Visit Diagnosis Plan: Hypotension due to drugs Discuss ion: Discussed decreasing cardizem dose due to low BP and edema but sees cardiology next week Follow Up: 1 months ICD-9 : 458.8 ICD-10 : I95.2 06/19/2018 Appointment: Belia Reid WPtel: [phone] [facility] [facility] FO[facility] 06/19/2018 Visit Diagnosis Plan: Essential (primary) hypertension Discussion: Just switched to cardizem by cardiology 3 days so will give time and monitor BP/pulse and edema ICD-9 : 401.9 ICD-10 : I10 06/09/2018 Visit Diagnosis Plan: Generalized hyperhidrosis Discus estefania: Will check blood cultures x2, urine culture and throat culture due to recent sepsis and ongoing ST as well as CBC, TSH, Free T4 ICD-9 : 780.8 ICD-10 : R61 06/09/2018 Appointment: Belia Reid WPtel: [phone] [facility] FOLLOW UP 06/09/2018 Care Plan: CHEST X-RAY 2VW FRONTAL&LATL LOINC : 32490-1 Pending 05/26/2018 Visit Diagnosis Plan: Supraventricular tachycardia Dis cussion: Sees Cardiology in 2 weeks ICD-9 : 427.89 ICD-10 : I47.1 05/21/2018 Visit Diagnosis Plan: Stridor Discussion: Resolved ICD-9 : 786.1 ICD-10 : R06.1 05/21/2018 Visit Diagnosis Plan: Dependence on supplemental oxyge n Discussion: Continues to need 3L of continuous oxygen Sees pulmonology next week Discussed pulmonary rehab Restart IS Follow Up: 2 weeks ICD-9 : V46.2 ICD-10 : Z99.81 05/21/2018 Visit Diagnosis Plan: Weakness Discussion: Has home he alth and home PT ICD-9 : 780.79 ICD-10 : R53.1 05/21/2018 Appointment: Belia Reid WPtel: [phone] [facility] [facility] Follow Up 05/21/2018 Visit Diagnosis Plan: Cervical disc diso rder with radiculopathy, unspecified cervical region Discussion: Scheduled for surgery on 06/02 10/[address] Faulkner ICD-9 : 722.0 ICD-10 : M50.10 04/16/2018 Appointment: Belia Reid WPtel: [address] [place], [place] [phone] Hospital Follow Up 04/16/2018 Visit Diagnosis Plan: Fibromyalgia Discussion: toradol to assist with generalized pain. instructed to contact her pharmacy to see where her additional 100 mg gabapentin is. call office if no iprovement or worsening. ICD-9 : 729.1 ICD-10 : M79.7 04/01/2018 Visit Diagnosis Plan: Migraine, unspecif ied, intractable, without status migrainosus Discussion: toradol/phenergan given in o ffice as IM as listed above. instructed to call office if no improvement or worsening. ICD-9 : 346.91 ICD-10 : G43.919 04/01/2018 Appointment: Pattie Sotomayor [address] [place] [address] ACUTE ILLNESS 04/01/2018 Appointment: Belia Reid WPtel: [address] [place] [address] 03/17/2018 Visit Diagnosis Plan: Chronic obstructiv e pulmonary disease with (acute) exacerbation Discussion: performomist 1 vial BID in S VN ICD-9 : 491.21 ICD-10 : J44.1 03/06/2018 Visit Diagnosis Plan: Erythema intertrigo Discussio: K etoconazole for 2 weeks Discussed recurrence likely due to location as well as blood sugar ICD-9 : 695.89 ICD-10 : L30.4 03/06/2018 Visit Diagnosis Plan: Type 2 diabetes mellitus with hy perglycemia Discussion: Check CMP, HbA1C Accuchecks daily ICD-9 : 250.02 ICD-10 : E11.65 03/06/2018 Appointment: Belia Reid WPtel: [address] [place] [address] Hospital Follow Up 03/06/2018 Visit Diagnosis Plan: Cervicalgia Discussion: spoke wi th dr. reid about patient. increased gabapentin to bid and started on celebrex bid. tramadrol rx written out to take prn. keep scheduled appt next week for myelogram. ICD-9 : 723.1 ICD-10 : M54.2 02/05/2018 Appointment: Pattie Sotomayor [address] [place] [address] [place], [place] [phone] ACUTE ILLNESS 02/05/2018 Care Plan: X-RAY EXAM NECK SPINE 4/5VWS cervical LOINC : 90313-7 Pending 01/21/2018 Visit Diagnosis Plan: Candidiasis of skin and nail Dis cussion: diflucan daily for a week to cover fungal infection. call office in one week with status and if no improvement, will refer to dermatology once again. ICD-9 : 112.3 ICD-10 : B37.2 01/20/2018 Visit Diagnosis Plan: Cervicalgia Discussion: stat xra y of cervical spine ordered. samples of vimovo given to patient with instructions on use. discussed with patient that may need additional imaging of spine since unable to tolerate therapy and if meds ineffective. ICD-9 : 723.1 ICD-10 : M54.2 01/20/2018 Appointment: Pattie Sotomayor [address] [place] [address] ACUTE ILLNESS 01/20/2018 Visit Diagnosis Plan: Pain in thoracic spine Discussio n: Proceed with CT scan of thoracic spine Will likely need PT ICD-9 : 724.1 ICD-10 : M54.6 12/25/2017 Appointment: Belia Reid WPtel: [phone] FOLLOW UP 12/25/2017 Care Plan: CT THORAX W/O DYE LOINC : 473 66-0 Pending 12/25/2017 Visit Diagnosis Plan: Pain in thoracic spine Discussio n: Stretches Alternated heat/ice Topical aspercreme with lidocaine Flexeril Recheck 1 week Flu and Pneumovax given ICD-9 : 724.1 ICD-10 : M54.6 12/17/2017 Appointment: Belia Reid WPtel: [phone] [facility]6[address] ACUTE ILLNESS 12/17/2017 Patient Education: Patient Medication Summary Completed 12/17/2017 Visit Diagnosis Plan: Chronic obstructiv e pulmonary disease with (acute) exacerbation Discussion: Per patient nothing has help ed--has done antibiotics, prolonged steroids, trelagy, breathing treatments Recommend add mucinex but patient does not want to try this because does not want to drink more water Add Singulair 10mg q HS ICD-9 : 491.21 ICD-10 : J44.1 10/30/2017 Appointment: Belia Reidtel: [address] [place], [place] [phone] US FOLLOW UP 10/30/2017 Patient Education: Patient Medication Summary Completed 10/30/2017 Visit Diagnosis Plan: Chronic obstructiv e pulmonary disease with acute lower respiratory infection Discussion: Continue SVNs with albuterol q4hrs Add Trelagy 1 inhalation daily Finish steroids Increase water intake Follow Up: 1 weeks ICD-9 : 496 ICD-10 : J44.0 10/23/2017 Appointment: Belia Reidtel: [address] [place], [place] [phone] WORK IN 10/23/2017 Patient Education: Patient Medication Summary Completed 10/23/2017 Appointment: Belia Reidtel: [address] [place], [place] [phone] NO SHOW 10/16/2017 Visit Diagnosis Plan: Confusional arousals Discussion: Likley medicaion related Decrease amitriptyelne to 1/2 tab for 1 week then stop Follow Up: 1 months ICD-9 : 327.41 ICD-10 : G47.51 09/17/2017 Visit Diagnosis Plan: Type 2 diabetes mellitus with hy perglycemia Discussion: Continue amaryl and metformin and accuchecks at least BID Obtain most recent HbA1C done at ICD-9 : 250.02 ICD-10 : E11.65 09/17/2017 Appointment: Belia Reidtel: [address] [place], [place] [phone] Annual Well Visit 09/17/2017 Patient Education: Patient Medication Summary Completed 09/17/2017 Appointment: Belia Reidtel: [address] [place], [place] [phone] US INJECTION 08/26/2017 Patient Education: Patient Medication Summary Completed 08/26/2017 Appointment: Belia Reidtel: [phone] [facility] [facility]ED 07/31/2017 Visit Diagnosis Plan: Encounter for scre ening mammogram for malignant neoplasm of breast Discussion: mammogram ordered to be comp leted for routine. ICD-9 : V76.11 ICD-10 : Z12.31 07/19/2017 Visit Diagnosis Plan: Urinary tract infection, site no t specified Discussion: will send urine off for culture. rocephin injection given in office today. call or rtc with new or worsening symptoms. ICD-9 : 599.0 ICD-10 : N39.0 07/19/2017 Visit Diagnosis Plan: Encounter for screening for oste oporosis Discussion: ordered dexa scan to be completed. ICD-9 : V82.81 ICD-10 : Z13.820 07/19/2017 Visit Diagnosis Plan: Acute bronchitis, unspecified Di scussion: rocephin injection given in office. 40 mg kenalog given in office as well. breo sample prescribed to assist with dyspnea. instructed to rtc next week if no improvement. but otherwise, continue with levaquin. ICD-9 : 466.0 ICD-10 : J20.9 07/19/2017 Appointment: Pattie Sotomayor [address] [employer] [id number] 07/19/2017 Patient Education: Patient Medication Summary Completed 07/19/2017 Care Plan: MAMMOGRAM SCREENING LOINC : 2 6347-5 Pending 07/19/2017 Patient Education: Patient Medication Summary Completed 06/05/2017 Care Plan: LIPID PANEL LOINC : 86882-8 Pending 06/05/2017 Care Plan: A1C HPLC LOINC : 07560-3 Pending 06/05/2017 Visit Diagnosis Plan: Rash and other nonspecific skin eruption Discussion: called dr. ruiz's office to see if patient can be evaluated today for possible need of iv antiobiotics or surgery. dr. ruiz's office was able to see her this am so patient sent there for referral. patient verbalized understanding. instructed to rtc prn if worsens or does not improve. ICD-9 : 782.1 ICD-10 : R21 05/29/2017 Appointment: Pattie Sotomayor [address] [id number] FOLLOW UP 05/29/2017 Patient Education: Patient Medication Summary Completed 05/29/2017 Visit Diagnosis Plan: Tinea corporis Discussion: Diflu can and topical nystatin Follow Up: 2 weeks ICD-9 : 110.5 ICD-10 : B35.4 05/07/2017 Visit Diagnosis Plan: Diarrhea, unspecified Discussion : Diflucan Cholestyramine Recheck 2weeks ICD-9 : 787.91 ICD-10 : R19.7 05/07/2017 Appointment: Belia Reid WPtel: [address] [place] [address] US FOLLOW UP 05/07/2017 Patient Education: Patient Medication Summary Completed 05/07/2017 Appointment: Belia Reidtel: [address] [place] [address] US RESCHEDULED 04/30/2017 Visit Diagnosis Plan: Chronic obstructiv e pulmonary disease with (acute) exacerbation Discussion: Finish prednisone Continue S VNS with albuterol ICD-9 : 491.21 ICD-10 : J44.1 03/18/2017 Visit Diagnosis Plan: Stridor Discussion: Increase Ati van 0.5mg po to TID routinely for next week then can go back to prn ICD-9 : 786.1 ICD-10 : R06.1 03/18/2017 Appointment: Belia Reid WPtel: [address] [place], [place] [phone] ER Follow UP 03/18/2017 Patient Education: Patient Medication Summary Completed 03/18/2017 Visit Diagnosis Plan: Type 2 diabetes mellitus with hy perglycemia Discussion: Continue amaryl 4mg po BID Continue trulicity at 1.5mg weekly Add Oseni 25/15mg daily Accuchecks TID due to fluctuating bS HbA1C and fwup in 2mos Repeat CT of chest in 2mos prior to fwup Follow Up: 2 months ICD-9 : 250.02 ICD-10 : E11.65 02/27/2017 Appointment: Belia Reid WPtel: [address] [place], [place] [phone] US FOLLOW UP 02/27/2017 Patient Education: Patient Medication Summary Completed 02/27/2017 Visit Diagnosis Plan: Type 2 diabetes mellitus with hy perglycemia Discussion: patient started on trulicity to begin once a week. demo pen was used to show how to inject and instructions given to patient. patient verbalized understanding. alcohol wipes given to patient today as well. keep scheduled appointment next week with dr. reid. call or RTC if worsening symptoms. go to ED if increased blood sugars. A1C ordered to be collected today since there are no recent a1c. avoid sweets and carbs this weekend and work on increasing exercise. ICD-9 : 250.02 ICD-10 : E11.65 02/22/2017 Appointment: Pattie Sotomayor [facility] ACUTE ILLNESS 02/22/2017 Patient Education: Patient Medication Summary Completed 02/22/2017 Patient Education: Trulicity - 18+ Comple mague 02/22/2017 Visit Diagnosis Plan: Urinary tract infection, site no t specified Discussion: Sejal lemus ICD-9 : 599.0 ICD-10 : N39.0 01/23/2017 Visit Diagnosis Plan: Type 2 diabetes mellitus with hy perglycemia Discussion: Increase amaryl to 4mg po BID Accuchecks TID Follow Up: 1 months ICD-9 : 250.02 ICD-10 : E11.65 01/23/2017 Visit Diagnosis Plan: Pneumonia, unspecified organism Discussion: Maria Antonia boyd then do doxycycline for 2 weeks then will plan on repeat CT scan of lungs in 3mos ICD-9 : 486 ICD-10 : J18.9 01/23/2017 Appointment: Belia Reid WPtel: [phone] [facility] [facility] Follow UP 01/23/2017 Patient Education: Patient Medication Summary Completed 01/23/2017 Appointment: Pattie Sotomayor [address] [place], [place] [address] US CANCELED 01/17/2017 Appointment: Pattie Sotomayor [address] [place] [address] [place], [place] [phone] Annual Well Visit 01/14/2017 Visit Diagnosis Plan: Type 2 diabetes mellitus with hy perglycemia Discussion: Check CMP, HbA1C Flu shot and Prevnar 13 given Follow Up: 3 months ICD-9 : 250.02 ICD-10 : E11.65 12/20/2016 Visit Diagnosis Plan: Localized edema Discussion: Low Na diet Compression socks/Elevate feet ICD-9 : 782.3 ICD-10 : R60.0 12/20/2016 Appointment: Belia Reid WPtel: [phone] [facility] FOLLOW UP 12/20/2016 Patient Education: Patient Medication Summary Completed 12/20/2016 Patient Education: Patient Medication Summary Completed 10/10/2016 Visit Plan: Xrays of cervical, thoracic and lumbar spine at [facility] for Mobic (stop NSAIDS except Tylenol) and Flexeril UA sent for C&S Using SVN Call in 2-3 days if pain not improved or any worsening 10/08/2016 Appointment: Celeste Ferreira WPtel: [phone] ACUTE ILLNESS 10/08/2016 Patient Education: Patient Medication Summary Completed 10/08/2016 Visit Diagnosis Plan: Migraine, unspecif ied, not intractable, without status migrainosus Discussion: BP up so will increase propr anolol to 60mg po BID ICD-9 : 346.90 ICD-10 : G43.909 09/19/2016 Visit Diagnosis Plan: Primary insomnia Discussion: Fabian mendoza amitriptylene at current dose ICD-9 : 780.52 ICD-10 : F51.01 09/19/2016 Visit Diagnosis Plan: Type 2 diabetes mellitus with hy perglycemia Discussion: Accuchecks daily Check CMP, HbA1C Follow Up: 3 months ICD-9 : 250.02 ICD-10 : E11.65 09/19/2016 Appointment: Belia Reid WPtel: [facility]0 [facility] 09/18 confirmed`sl FOLLOW UP 09/19/2016 Patient Education: Patient Medication Summary Completed 09/19/2016 Visit Diagnosis Plan: Migraine, unspecif ied, not intractable, without status migrainosus Discussion: Elavil 50mg PO qd Follow Up: 1 months ICD-9 : 346.90 ICD-10 : G43.909 08/20/2016 Visit Diagnosis Plan: Cough Discussion: Ativan 0.5 mg TID ICD-9 : 786.2 ICD-10 : R05 08/20/2016 Visit Diagnosis Plan: Generalized abdominal pain Discu ssion: fwup with urology in Omeprazole 40 mg ICD-9 : 789.00 ICD-10 : R10.84 08/20/2016 Appointment: Belia Reid WPtel: [address] [place], [place] [id number] 08/16 confirmed~sl FOLLOW UP 08/20/2016 Patient Education: Patient Medication Summary Completed 08/20/2016 Visit Diagnosis Plan: Stridor Discussion: Keep lorazep am at QID dosing Follow Up: 2 months ICD-9 : 786.1 ICD-10 : R06.1 06/19/2016 Visit Diagnosis Plan: Chronic obstructive pulmonary di sease, unspecified Discussion: Stable with current inhalers Still has not moved out of current living situation ICD-9 : 496 ICD-10 : J44.9 06/19/2016 Appointment: Belia Reid WPtel: [address] [place], [place] [phone] [place] 06/18 confirmed ~ Hospital Follow Up 06/19/2016 Patient Education: Patient Medication Summary Completed 06/19/2016 Visit Diagnosis Plan: Chronic obstructive pulmonary di sease, unspecified Discussion: Continue current inhalers ICD-9 : 496 ICD-10 : J44.9 06/04/2016 Visit Diagnosis Plan: Personal history of urinary (tra ct) infections Discussion: Sees urology June 22 at Restart prophylactic Macrobid at QOD ICD-9 : V13.02 ICD-10 : Z87.440 06/04/2016 Appointment: Belia Reid WPtel: [facility] US 06/01 confirmed~sl FOLLOW UP 06/04/2016 Patient Education: Patient Medication Summary Completed 06/04/2016 Visit Diagnosis Plan: Cystitis, unspecified without he maturia Discussion: Finish macrobid then go to QOD on macrobid ICD-9 : 595.9 ICD-10 : N30.90 05/02/2016 Visit Diagnosis Plan: Other specified diseases of inte chana Discussion: Finish flagyl Schedule with Dr. Balderas for colonoscopy Start daily probiotic Follow Up: 1 months ICD-9 : 569.89 ICD-10 : K63.89 05/02/2016 Visit Diagnosis Plan: Stridor Discussion: Continue ati van at current khalil ICD-9 : 786.1 ICD-10 : R06.1 05/02/2016 Appointment: Belia Reid WPtel: [address] [place], [place] [phone] 05/01 confirmed [facility] Hospital Follow Up 05/02/2016 Patient Education: Patient Medication Summary Completed 05/02/2016 Visit Diagnosis Plan: Fibromyalgia Discussion: Switch gabapentin to lyrica--decrease gabapentin to 300mg po BID for 1 week then start lyrica at 75mg daily and decrease gabapentin to 300mg daily for 1 week then stop gabapentin and increase lyrica to 75mg po BID--written instructions given to patient Recheck 1month after BID dosing of lyrica ICD-9 : 729.1 ICD-10 : M79.7 04/03/2016 Visit Diagnosis Plan: Urinary tract infection, site no t specified Discussion: Sees Dr. Ortiz this Saturday Continue Detrol ICD-9 : 599.0 ICD-10 : N39.0 04/03/2016 Appointment: Belia Reid WPtel: [address] [place], [place] [phone] [facility] 04/03/2016 Patient Education: Patient Medication Summary Completed 04/03/2016 Visit Plan: Lungs are clear Her symptoms and exam are all upper airway restriction/constriction Can try supportive care Rx as above Follow up PRN 02/29/2016 Appointment: Lidia Hwang [address] [place], [place] [phone] ACUTE ILLNESS 02/29/2016 Patient Education: Patient Medication Summary Completed 02/29/2016 Visit Plan: Toradol/Phenergan today for Migraine Change to Clindamycin to cover lactobacillus for UTI Cover with flagyl due to hx of C. Diff 02/02/2016 Appointment: Belia Reid WPtel: [address] [place], [place] [phone] 01/31 confirmed`sl ACUTE ILLNESS 02/02/2016 Patient Education: Patient Medication Summary Completed 02/02/2016 Visit Plan: Increase neurontin to 300mg q AM and 600mg q PM Discussed neurology re-evaluation Flu shot given Need to check on Pneumonia shot Rx written out for albuterol 01/05/2016 Appointment: Belia Reid WPtel: [address] [place], [place] [phone] 01/03 confirmed ~sl Annual Well Visit 01/05/2016 Patient Education: Patient Medication Summary Completed 01/05/2016 Visit Plan: Cipro Culture urine hydrate Flexeril refilled Alternate heat and ice for back Increase gabapentin to 300mg po BID Notify if worsens 12/05/2015 Appointment: Belia Reid WPtel: [address] [place], [place] [phone] 11/30 confirmed~sl ACUTE ILLNESS 12/05/2015 Patient Education: Patient Medication Summary Completed 12/05/2015 Patient Education: Patient Medication Summary Completed 10/27/2015 Care Plan: [place] : [address]-3 Pending 10/27/2015 Care Plan: A1C HPLC LOINC : 02063-9 Pending 10/27/2015 Visit Plan: Lungs are CTA today and is f eeling improved overall Finish meds as ordered Continue inhalers and neb treatments Discussed migraine treatment options She does not feel she needs anything additional added today Refill of Januvia sent since no samples are available today 10/26/2015 Appointment: Lidia Hwang [address] [place], [place] [phone] Hospital Follow Up 10/26/2015 Appointment: Lidia Hwang [address] [place], [place] [address] CANCELED 10/26/2015 Patient Education: Patient Medication Summary Completed 10/26/2015 Patient Education: Januvia - 18+ - KENNETH - No [place] Completed 10/26/2015 Visit Plan: Office dip still abnormal Cu lture pending Switch to cipro - stop macrobid Push fluids - avoid caffeine Will call with culture results when available Follow up if worsening 10/05/2015 Appointment: Lidia Hwang [address] [place], [place] [phone] ER Follow UP 10/05/2015 Patient Education: Patient Medication Summary Completed 10/05/2015 Visit Plan: Proceed with PT for document ation of ROM and strength of all extremities Proceed with Power Mobility Device Trial of neurontin 300mg q HS--lyrica helped but patient unable to afford Recheck 1month 09/15/2015 Appointment: Belia Reid WPtel: [address] [place], [place] [phone] 09/13 confirmed~sl SPECIAL 09/15/2015 Patient Education: Patient Medication Summary Completed 09/15/2015 Visit Plan: Fille out Loan Discharge Pap erwork for total and permanent disability 08/25/2015 Patient Education: Patient Medication Summary Completed 08/25/2015 Visit Plan: Discussed with Dr Franklin Haywood at CT of head 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 and update if needed 08/24/2015 Appointment: Lidia Hwang [address] [place], [place] [phone] 08/22 confirmed~sl ACUTE ILLNESS 08/24/2015 Patient Education: Patient Medication Summary Completed 08/24/2015 Patient Education: Patient Medication Summary Completed 08/24/2015 Care Plan: US EXAM OF HEAD AND NECK carotid Ultrasound LOIN C : 86549-8 Pending 08/24/2015 Visit Plan: Long discussion about diet A ccuchecks daily Check HbA1C, CMP Change requip to mirapex 07/05/2015 Appointment: Belia Reid WPtel: [address] [place], [place] [id number] 07/03 confirmed ~sl FOLLOW UP 07/05/2015 Patient Education: Patient Medication Summary Completed 07/05/2015 Visit Plan: Add Breo ellipta 100 1 p BID Continue SVNs with duoneb QID 06/06/2015 Appointment: Belia Reid WPtel: [address] [place], [place] [phone] Patient is calling for a ride, then retu rning our call.-sp 06/01 called and patient stated she will know saturday if she can get a ride~sl 06/05 [facility] Hospital Follow Up 06/06/2015 Patient Education: Patient Medication Summary Completed 06/06/2015 Visit Plan: Albuterol nebulizer treatmen t given - pulse ox increased to 99% Breath sounds are improved and patient feels some better with breathing Advised her to start the prednisone lesli Complete the zpak New order for nebulizer machine given and instructed to do albuterol treatments as ordered Follow up in 2-3 days if not improving 05/23/2015 Appointment: Huong Osborne WPtel: [address] [place], [place] [phone] ACUTE ILLNESS 05/23/2015 Appointment: Lidia Hwang [address] [place], [place] [address] ER Follow UP 05/23/2015 Patient Education: Patient Medication Summary Completed 05/23/2015 Visit Plan: Check pancreatic enzymes and US of pancreas as patient can't understand why she has diabetes since has no family history Discussed weight, diet, exercise all play an important role in diabetes and are risk factors as well Continue Januvia and accuchecks daily 05/05/2015 Appointment: Belia Reid WPtel: [address] [place], [place] [phone] FOLLOW UP 05/05/2015 Patient Education: Patient Medication Summary Completed 05/05/2015 Care Plan: US EXAM ABDOM COMPLETE LOINC : 67636-8 Ordered 05/05/2015 Visit Plan: Start Januvia 100mg daily [place] with diflucan and culture urine Accuchecks daily alternating times Recheck 6weeks 03/30/2015 Appointment: Belia Reidtel: [address] [place], [place] [phone] 03/29 confirmed~lb FOLLOW UP 03/30/2015 Patient Education: Patient Medication Summary Completed 03/30/2015 Appointment: Belia Reid WPtel: [address] [place], [place] [phone] [place] 03/01 needs reschedule due to payment and insurance ~sl FOLLOW UP 03/02/2015 Visit Plan: Patient was just in ER last night so has not filled scripts yet Start Carafate and Flagyl and Cipro Add Hyophen 1 po BID Recheck 1mo 02/03/2015 Appointment: Belia Reid: [address] [place], [place] [id number] 02/02lm ~sl...02/03/15 appt confirmed cn ACUTE I LLNESS 02/03/2015 Patient Education: Patient Medication Summary Completed 02/03/2015 Visit Plan: Warm soaks to vaginal area K elex and Diflucan and observe Zofran to use prn 12/29/2014 Appointment: Belia Reid WPtel: [address] [place], [place] [phone] 12/28 Confirmed ~sl ACUTE ILLNESS 12/29/2014 Patient Education: Patient Medication Summary Completed 12/29/2014 Appointment: Huong Osborne WPtel: [address] [place], [place] [phone] FOLLOW UP 09/24/2014 Appointment: Belia Reid WPtel: [address] [place], [place] [phone] 09/15 confirmed -mf FOLLOW UP 09/16/2014 Visit Plan: Increase requip to 2mg po BI D Increase lyrica to 225mg total a day by adding an extra 75mg in AM Recheck in 2weeks Continue to patch left eye while sleeping 09/02/2014 Appointment: Belia Reid WPtel: [address] [place], [place] [phone] 09/01 appt confirmed cn Hospital Follow Up 09/02 Patient Education: Patient Medication Summary Completed 09/02/2014 Visit Plan: To [facility] for observat ion to R/O CVA 08/25/2014 Appointment: Huong Osborne WPtel: [address] [place], [place] [phone] ACUTE ILLNESS 08/25/2014 Patient Education: Patient Medication Summary Completed 08/25/2014 Referral: Aaron Jonas WPtel: [facility] [address], [id number] In [place] location Initiated 04/26/2014 Referral: Brian Srinivasan WPtel: [facility] [address] Referral Initiated 04/20/2014 Appointment: Belia Reid WPtel: [address] [place], [place] [phone] ER Follow UP 04/01/2014 Patient Education: Patient Medication Summary Completed 04/01/2014 Care Plan: MYELOGRAPHY NECK SPINE LOINC : 88281-4 Ordered 04/01/2014 Visit Plan: Continue Symbicort 160 at 2p BID Continue SVNs with duoneb at least QID Finish Levaquin Recheck 1mo on lyrica 03/16/2014 Appointment: Belia Reid WPtel: [address] [place] [address] 03/15 voicemail FOLLOW UP 03/16/2014 Patient Education: Patient Medication Summary Completed 03/16/2014 Visit Plan: Restart SVNs with duoneb QID Repeat prednisone Levaquin Continue symbicort Keep lyrica at same dose Recheck 1week 03/09/2014 Appointment: Belia Reid WPtel: [address] [place] [address] FOLLOW UP 03/09/2014 Patient Education: Patient Medication Summary Completed 03/09/2014 Appointment: Belia Reid WPtel: [address] [place] [address] 03/03 showed up 15 minutes late for appt -- put her on Huong's side for 10:45am FORGIVEN PER DR FOLLOW UP 03/03/2014 Appointment: Huong Osborne WPtel: [address] [place] [address] [place] FOLLOW UP 03/03/2014 Patient Education: Patient Medication Summary Completed 03/03/2014 Appointment: Huong Osborne WPtel: [address] [place], [place] [phone] ER Follow UP 03/01/2014 Patient Education: Patient Medication Summary Completed 03/01/2014 Visit Plan: Add carafate for this next m onth Increase lyrica to 150mg q HS 02/09/2014 Appointment: Belia Reid WPtel: [address] [place], [place] [phone] [facility] Follow Up 02/09/2014 Patient Education: Patient Medication Summary Completed 02/09/2014 Visit Plan: Increase omeprazole back to 40mg po BID Use requip in AM and add lyrica 75mg q HS Recheck 1mo 12/23/2013 Appointment: Belia Reid WPtel: [address] [place], [place] [phone] FOLLOW UP 12/23/2013 Patient Education: Patient Medication Summary Completed 12/23/2013 Patient Education: Patient Medication Summary Completed 12/04/2013 Appointment: Belia Reid WPtel: [address] [place] [address] 10/30/2013 Patient Education: Patient Medication Summary Completed 10/30/2013 Appointment: Belia Reid WPtel: [address] [place] [address] 10/21/2013 Patient Education: Patient Medication Summary Completed 10/21/2013 Visit Plan: Cryotherapy as above TAC and hydroxyzine to use prn to itching spots and itching SKs Add Advair HFA 115/21 1 p BID 10/05/2013 Appointment: Belia Reid WPtel: [address] [place], [place] [phone] 10/01 pt called and confirmed ACUTE ILLNESS Patient Education: Patient Medication Summary Completed 10/05/2013 Appointment: Belia Reid WPtel: [address] [place], [place] [phone] will pay copay and part of past balance FOLLOW U P 08/04/2013 Patient Education: Patient Medication Summary Completed 08/04/2013 Appointment: Belia Reid WPtel: [address] [place], [place] [phone] [place] INJECTION 07/13/2013 Patient Education: Patient Medication Summary Completed 07/13/2013 Appointment: Huong Osborne WPtel: [address] [place], [place] [phone] [place] ACUTE ILLNESS 07/03/2013 Patient Education: Patient Medication Summary Completed 07/03/2013 Visit Plan: Cipro and culture urine 05/27/2013 Appointment: Huong Osborne WPtel: [address] [place], [place] [phone] [place] 05/26 confirmed appt and 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 FOLLOW UP 05/27/2013 Patient Education: Patient Medication Summary Completed 05/27/2013 Appointment: Belia Reid WPtel: [address] [place], [place] [phone] [place] UA 05/25/2013 Patient Education: Patient Medication Summary Completed 05/25/2013 Appointment: Belia Reid WPtel: [address] [place], [place] [phone] [place] INJECTION 05/04/2013 Patient Education: Patient Medication Summary Completed 05/04/2013 Appointment: Belia Reid WPtel: [address] [place], [place] [phone] [place] INJECTION 04/17/2013 Patient Education: Patient Medication Summary Completed 04/17/2013 Appointment: Belia Reid WPtel: [address] [place], [place] [phone] [place] INJECTION 04/15/2013 Appointment: Belia Reid WPtel: [address] [place], [place] [phone] [place] 04/02 FOLLOW UP 04/06/2013 Patient Education: Patient Medication Summary Completed 04/06/2013 Visit Plan: Obtain lab results including UA from [facility] 11/10/2012 Appointment: Belia Reid WPtel: [address] [place] [address] ER Follow UP 11/10/2012 Patient Education: Patient Medication Summary Completed 11/10/2012 Appointment: Belia Reid WPtel: [address] [place], [place] [phone] 10/30/12 patient canceled appt due to fin ances. Offered to work something out, patient declined-LB FOLLOW UP 11/05/2012 Visit Plan: Continue Bystolic at current dose Pt has fwup with Neurology on September 16 09/02/2012 Appointment: Belia Reid WPtel: [address] [place] [address] FOLLOW UP 09/02/2012 Patient Education: Patient Medication Summary Completed 09/02/2012 Visit Plan: Continue bystolic at 5mg chris ly Sees Neurology tomorrow Use oxygen at bedtime 08/04/2012 Appointment: Belia Reid WPtel: [address] [place] [address] FOLLOW UP 08/04/2012 Patient Education: Patient Medication Summary Completed 08/04/2012 Appointment: Belia Reid WPtel: [address] [place] [address] Hospital fwup for 07/21/12. merged appointments FOLLOW UP 07/24/2012 Visit Plan: Start Bystolic 5mg daily for tachycardia Fwup with neurology for further workup Overnight O2 sat 07/21/2012 Appointment: Belia Reid WPtel: [address] [place] [address] Hospital Follow Up 07/21/2012 Patient Education: Patient Medication Summary Completed 07/21/2012 Visit Plan: SVN with Albuterol QID Add A velox 400mg daily Notify if worsens or persists 07/02/2012 Appointment: Belia Reid WPtel: [address] [place] [address] ACUTE ILLNESS 07/02/2012 Patient Education: Patient Medication Summary Completed 07/02/2012 Appointment: Belia Reid WPtel: [address] [place], [place] [phone] [place] INJECTION 06/25/2012 Patient Education: Patient Medication Summary Completed 06/25/2012 Appointment: Belia Reid WPtel: [address] [place], [place] [phone] FOLLOW UP 06/24/2012 Patient Education: Patient Medication Summary Completed 06/24/2012 Appointment: Belia Reid WPtel: [address] [place], [place] [phone] 05/19 left message FOLLOW UP 05/20/2012 Patient Education: Patient Medication Summary Completed 05/20/2012 Visit Plan: DC Neurontin--discussed that this may be causing some of symptoms Also discussed that stress is likely contributing factor Discussed that may be going through withdrawal from stopping pain meds cold turkey--pt states stopped meds 2wks ago do to not helping Increase Buspar to 10mg po TID 05/08/2012 Appointment: Belia Reid WPtel: [address] [place], [place] [phone] ACUTE ILLNESS 05/08/2012 Patient Education: Patient Medication Summary Completed 05/08/2012 Visit Plan: Continue current meds Contin ue lower dose on pain meds and Diazepam Still waiting on paperwork for botox for Migraines Will restart Neurontin at 600mg po q HS Pt going to stop Depakote due to can't afford 04/22/2012 Appointment: Belia Reid WPtel: [address] [place], [place] [phone] 04/21 Hospital Follow Up 04/22/2012 Patient Education: Patient Medication Summary Completed 04/22/2012 Visit Plan: Injection to shoulder as abo ve Continue current meds Has appointment with neurology on HAs in 02/13/2012 Appointment: Belia Reid WPtel: [address] [place], [place] [phone] [facility] - will bring it in next week. Kianna iqbal'ed this. - [place] FOLLOW UP 02/13/2012 Patient Education: Patient Medication Summary Completed 02/13/2012 Visit Plan: Proceed with headache specia list Change nexium to Protonix Phenergan to use prn Sumatriptan to use prn Pt still on Inderal 01/28/2012 Appointment: Belia Reid WPtel: [address] [place] [address] ER Follow UP 01/28/2012 Patient Education: Patient Medication Summary Completed 01/28/2012 Visit Plan: Pt is frequently going to ER due to headaches and has tried numerous prophylactic medications including topamax, zonegran, elavil, beta blockers, neurontin, ca channel blockers She has also tried numerous abortive meds as well Finally agrees to proceed with [facility] specialist and consider options such as botox Restart Nexium Continue metformin and accuchecks at least daily Had flu shot Retry trazadone for sleep 12/26/2011 Appointment: Belia Reid WPtel: [address] [place], [place] [phone] 12/24- appt. confirmed FOLLOW UP 2 Patient Education: Patient Medication Summary Completed 12/26/2011 Appointment: Belia Reid WPtel: [address] [place], [place] [phone] [place] FOLLOW UP 11/14/2011 Patient Education: Patient Medication Summary Completed 11/14/2011 Appointment: Belia Reid WPtel: [address] [place], [place] [phone] [place] FOLLOW UP 09/12/2011 Patient Education: Patient Medication Summary Completed 09/12/2011 Visit Plan: Supportive care Decrease Liseth catalino to 50mg q HS Decrease AM dose of Valium to 5mg q HS Use Endocet sparingly 08/15/2011 Appointment: Belia Reid WPtel: [address] [place], [place] [phone] ER Follow UP 08/15/2011 Patient Education: Patient Medication Summary Completed 08/15/2011 Appointment: Belia Reid WPtel: [address] [place] [address] [place] Spoke directly to patient yesterday and confirmed the appoin tmedavid. ACUTE ILLNESS 08/09/2011 Patient Education: Patient Medication Summary Completed 08/09/2011 Appointment: Belia Reid WPtel: [address] [place] [address] Hospital Follow Up 07/03/2011 Patient Education: Patient Medication Summary Completed 07/03/2011 Appointment: Belia Reid WPtel: [address] [place] [address] FOLLOW UP 06/04/2011 Patient Education: Patient Medication Summary Completed 06/04/2011 Visit Plan: Pt. wants "allergy shot" but in fact wants steroid shot. Will take a break from "generic Zyrtec they are getting from [facility]" and try Singulair for 2 weeks. 05/03/2011 Appointment: Iraida Jones WPtel: [address] [place] [address] ACUTE ILLNESS 05/03/2011 Patient Education: Patient Medication Summary Completed 05/03/2011 Visit Plan: Neurontin 400mg q HS for 1we ek then 800mg q HS Decrease requip to 1mg q HS for 2wks then stop Fwup 2mos 04/05/2011 Appointment: Belia Reid WPtel: [address] [place] [address] FOLLOW UP 04/05/2011 Patient Education: Patient Medication Summary Completed 04/05/2011 Visit Plan: Trial of neurontin in 2wks C ontinue current meds for stomach Pt has procedure with Dr. Ortiz next week for stone removal 03/08/2011 Appointment: Belia Reid WPtel: [address] [place] [address] Hospital Follow Up 03/08/2011 Patient Education: Patient Medication Summary Completed 03/08/2011 Appointment: Belia Reid WPtel: [address] [place], [place] [phone] [place] FOLLOW UP 02/19/2011 Visit Plan: reports increased Topamax do se and still on Flagyl. for UTI. Encouraged pt. to see Dr. Lomas. Pt. reports follow up with Dr. Ortega for follow up of EGD will refil Omeprazole BID dosing as she reports she was positive for pre-cancerous cells. Clindamycin as last report indicated Hong will try Clindamycin as not having success with Flagyl 01/24/2011 Appointment: Iraida Jones WPtel: [address] [place] [address] ACUTE ILLNESS 01/24/2011 Patient Education: Patient Medication Summary Completed 01/24/2011 Appointment: Belia Reid WPtel: [address] [place] [address] [place] FOLLOW UP 01/02/2011 Patient Education: Patient Medication Summary Completed 01/02/2011 Appointment: Belia Reid WPtel: [address] [place] [address] FOLLOW UP 12/12/2010 Appointment: Belia Reid WPtel: [address] [place] [address] ACUTE ILLNESS 12/07/2010 Patient Education: Patient Medication Summary Completed 12/07/2010 Visit Plan: Increase Buspar to 10mg po B ID 11/16/2010 Appointment: Belia Reid WPtel: [address] [place], [place] [phone] [place] FOLLOW UP 11/16/2010 Patient Education: Patient Medication Summary Completed 11/16/2010 Appointment: Iraida Jones WPtel: [address] [place], [place] [phone] ER Follow UP 11/02/2010 Patient Education: Patient Medication Summary Completed 11/02/2010 Visit Plan: Depo-Medrol/Kenalog given fo r allergies Add BuSpar for anxiety Oxycodone one p.o. q.i.d. for number 120 refilled 10/18/2010 Appointment: Belia Reid WPtel: [address] [place] [address] FOLLOW UP 10/18/2010 Patient Education: Patient Medication Summary Completed 10/18/2010 Visit Plan: Continue current meds Discus sed epidurals for back vs PT--will proceed with epidurals to thoracolumbar region to see if helps with pain 09/19/2010 Appointment: Belia Reid WPtel: [address] [place] [address] FOLLOW UP 09/19/2010 Patient Education: Patient Medication Summary Completed 09/19/2010 Visit Plan: DC MS contin Check CT scan t horacic spine Fwup pending above results 09/06/2010 Appointment: Belia Reid WPtel: [address] [place] [address] FOLLOW UP 09/06/2010 Patient Education: Patient Medication Summary Completed 09/06/2010 Visit Plan: Continue current meds Restar t MS contin 15mg po BID and use oxycodone prn Use daily senokot-s 2 po BID 08/10/2010 Appointment: Belia Reidtel: [address] [place], [place] [phone] FOLLOW UP 08/10/2010 Patient Education: Patient Medication Summary Completed 08/10/2010 Visit Plan: Depomedrol/Kenalog given Pt sees ENT later this month Cont current meds Mammo scheduled 05/11/2010 Appointment: Belia Reid WPtel: [address] [place], [place] [phone] FOLLOW UP 05/11/2010 Patient Education: Patient Medication Summary Completed 05/11/2010 Appointment: Belia Reid WPtel: [address] [place], [place] [phone] UA 05/04/2010 Patient Education: Patient Medication Summary Completed 05/04/2010 Visit Plan: Pt sent to lab for UA 04/28/2010 Appointment: Belia Reidtel: [address] [place], [place] [phone] [place] [address] 04/28/2010 Patient Education: Patient Medication Summary Completed 04/28/2010 Visit Plan: Check CT angiogram of chest Restart Advair Use proair prn Cont current meds Fwup with Card as schedulec 04/06/2010 Appointment: Belia Reidtel: [address] [place] [address] Follow Up 04/06/2010 Patient Education: Patient Medication Summary Completed 04/06/2010 Visit Plan: Paperwork filled out for pow erchair Depomedrol/kenalog given Pt sees ENT in 2wks to assess nasal obstruction problems 02/09/2010 Appointment: Belia Reidtel: [address] [place] [address] ESTABLISHED PATIENT 02/09/2010 Patient Education: Patient Medication Summary Completed 02/09/2010 Visit Plan: Change Elavil to Trazadone 1 50mg q HS Diflucan and nystatin for tinea cruris 01/05/2010 Appointment: Belia Reidtel: [address] [place] [address] FOLLOW UP 01/05/2010 Patient Education: Patient Medication Summary Completed 01/05/2010 Appointment: Belia Reidtel: [address] [place] [address] FOLLOW UP 12/07/2009 Patient Education: Patient Medication Summary Completed 12/07/2009 Appointment: Belia Reidtel: [address] [place] [address] FOLLOW UP 11/22/2009 Visit Plan: Cont current meds and await MRI results from Dr. Meadows's office and his final recommendations Will need to follow-up at later date on deviated septum 11/08/2009 Appointment: Belia Reid WPtel: [address] [place], [place] [phone] FOLLOW UP 11/08/2009 Patient Education: Patient Medication Summary Completed 11/08/2009 Visit Plan: Cont PT/OT See Neurosurgery Cont Dwain alejandrace 10/24/2009 Appointment: Belia Reid WPtel: [address] [place], [place] [phone] FOLLOW UP 10/24/2009 Patient Education: Patient Medication Summary Completed 10/24/2009 Appointment: Belia Reid WPtel: [address] [place], [place] [phone] [place] [address] Follow Up 10/17/2009 Appointment: Belia Reid WPtel: [address] [place] [address] ACUTE ILLNESS 07/25/2009 Patient Education: Patient Medication Summary Completed 07/25/2009 Appointment: Belia Reid WPtel: [address] [place], [place] [phone] FOLLOW UP 05/26/2009 Patient Education: Patient Medication Summary Completed 05/26/2009 Referral: Chino Balderas WPtel: [address] [place], [place] [phone] [place] Referral Initiated Referral: Merry Vale WPtel: [facility] [id number] [place] Dr Vale will review referral and book appointment Completed Referral: Francisco Javier Yoder WPtel: [address] [id number] [place] Patient needs EGD insurance will not inc rease a medication unless this procedure results show a need Completed Referral: Francisco Javier Yoder WPtel: [address] [id number] [place] Referral Historical Reference Referral: Francisco Javier Yoder WPtel: [address] [place] [address] [place] Referral Initiated Instructions Comment . Xrays of cervical, thoracic and lumbar spine at [facility] for Mobic (stop NSAIDS except Tylenol) and Flexeril UA sent for C&S Using SVN Call in 2-3 days if pain not improved or any worsening . Lungs are clear Her symptoms and exam are all upper airway restriction/constriction Can try supportive care Rx as above Follow up PRN . Toradol/Phenergan today for Migraine Change to Clindamycin to cover lactobacillus for UTI Cover with flagyl due to hx of C. Diff . Increase neurontin to 300mg q AM and 6 00mg q PM Discussed neurology re-evaluation Flu shot given Need to check on Pneumonia shot Rx written out for albuterol . Cipro Culture urine hydrate Flexeril refilled Alternate heat and ice for back Increase gabapentin to 300mg po BID Notify if worsens . Lungs are CTA today and is feeling imp roved overall Finish meds as ordered Continue inhalers and neb treatments Discussed migraine treatment options She does not feel she needs anything additional added today Refill of Januvia sent since no samples are available today . Office dip still abnormal Culture pending Switch to cipro - stop macrobid Push fluids - avoid caffeine Will call with culture results when available Follow up if worsening . Proceed with PT for documentation of R OM and strength of all extremities Proceed with Power [employer] Device Trial of neurontin 300mg q HS--lyrica helped but patient unable to afford Recheck 1month . Fille out Loan Discharge Paperwork for total and permanent disability . 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 Long discussion about diet Accuchecks daily Check HbA1C, CMP Change requip to mirapex . Add Breo ellipta 100 1 p BID Continue SVNs with duoneb QID . Albuterol nebulizer treatment given - pulse ox increased to 99% Breath sounds are improved and patient feels some better with breathing Advised her to start the prednisone lesli Complete the zpak New order for nebulizer machine given and instructed to do albuterol treatments as ordered Follow up in 2-3 days if not improving . Check pancreatic enzymes and US of aviva dallas as patient can't understand why she has diabetes since has no family history Discussed weight, diet, exercise all play an important role in diabetes and are risk factors as well Continue Januvia and accuchecks daily . Start Januvia 100mg daily Cover with diflucan and culture urine Accuchecks daily alternating times Recheck 6weeks . Patient was just in ER last night so h as not filled scripts yet Start Carafate and Flagyl and Cipro Add Hyophen 1 po BID Recheck 1mo . Warm soaks to vaginal area Kelex and Diflucan and observe Zofran to use prn . Increase requip to 2mg po BID Increase lyrica to 225mg total a day by adding an extra 75mg in AM Recheck in 2weeks Continue to patch left eye while sleeping . To Yessenia Urena for observation to R/O CVA . Continue Symbicort 160 at 2p BID Continue SVNs with duoneb at least QID Finish Levaquin Recheck 1mo on lyrica . Restart SVNs with duoneb QID Repeat prednisone Levaquin Continue symbicort Keep lyrica at same dose Recheck 1week . Add carafate for this next month Increase lyrica to 150mg q HS . Increase omeprazole back to 40mg po BI D Use requip in AM and add lyrica 75mg q HS Recheck 1mo . Cryotherapy as above TAC and hydroxyzine to use prn to itching spots and itching SKs Add Advair HFA 115/21 1 p BID . Cipro and culture urine . Obtain lab results including UA from [facility] Finish Levaquin . Continue Bystolic at current dose Pt has fwup with Neurology on September 16 . Continue bystolic at 5mg daily Sees Neurology tomorrow Use oxygen at bedtime . Start Bystolic 5mg daily for tachycard ia Fwup with neurology for further workup Overnight O2 sat . SVN with Albuterol QID Add Avelox 400mg daily Notify if worsens or persists . DC Neurontin--discussed that this may be causing some of symptoms Also discussed that stress is likely contributing factor Discussed that may be going through withdrawal from stopping pain meds cold turkey--pt states stopped meds 2wks ago do to not helping Increase Buspar to 10mg po TID . Continue current meds Continue lower dose on pain meds and Diazepam Still waiting on paperwork for botox for Migraines Will restart Neurontin at 600mg po q HS Pt going to stop Depakote due to can't afford . Injection to shoulder as above Continue current meds Has appointment with neurology on HAs in Mar . Proceed with headache specialist Change nexium to Protonix Phenergan to use prn Sumatriptan to use prn Pt still on Inderal . Pt is frequently going to ER due to he adaches and has tried numerous prophylactic medications including topamax, zonegran, elavil, beta blockers, neurontin, ca channel blockers She has also tried numerous abortive meds as well Finally agrees to proceed with [facility] specialist and consider options such as botox Restart Nexium Continue metformin and accuchecks at least daily Had flu shot Retry trazadone for sleep . Supportive care Decrease Elavil to 50mg q HS Decrease AM dose of Valium to 5mg q HS Use Endocet sparingly . Pt. wants "allergy shot" but in fact wants steroid shot. Will take a break from "generic Zyrtec they are getting from [facility]" and try Singulair for 2 weeks. . Neurontin 400mg q HS for 1week then 80 0mg q HS Decrease requip to 1mg q HS for 2wks then stop Fwup 2mos . Trial of neurontin in 2wks Continue current meds for stomach Pt has procedure with Dr. Ortiz next week for stone removal . reports increased Topamax dose and sti ll on Flagyl. for UTI. Encouraged pt. to see Dr. Lomas. Pt. reports follow up with Dr. Ortega for follow up of EGD will refil Omeprazole BID dosing as she reports she was positive for pre- cancerous cells. Clindamycin as last report indicated Evangelistlla will try Clindamycin as not having success with Flagyl . Increase Buspar to 10mg po BID . Depo-Medrol/Kenalog given for allergie s Add BuSpar for anxiety Oxycodone 10/325 one p.o. q.i.d. for number 120 refilled . Continue current meds Discussed epidurals for back vs PT--will proceed with epidurals to thoracolumbar region to see if helps with pain . DC MS contin Check CT scan thoracic spine Fwup pending above results . Continue current meds Restart MS contin 15mg po BID and use oxycodone prn Use daily senokot-s 2 po BID . Depomedrol/Kenalog given Pt sees ENT later this month Cont current meds Mammo scheduled . Pt sent to lab for UA . Check CT angiogram of chest Restart Advair Use proair prn Cont current meds Fwup with Card as schedulec . Paperwork filled out for powerchair Depomedrol/kenalog given Pt sees ENT in 2wks to assess nasal obstruction problems . Change Elavil to Trazadone 150mg q HS Diflucan and nystatin for tinea cruris . Cont current meds and await MRI result s from Dr. Meadows's office and his final recommendations Will need to follow-up at later date on deviated septum . Cont PT/OT See Neurosurgery Cont Tortoise shell brace Medical Equipment No Medical Equipment data Health Concerns Section Health Concerns data not found Goals Section Goals data not found Interventions Section Interventions data not found Health Status Evaluations/Outcomes Section Health Status Evaluations/Outcomes data not found Advance Directives No Advance Directive data
--- OUTSIDE RECORDS SUMMARY | 2019-06-23 17:41 | XMS REPORT | CCD ---
Author Author Diana Reid D.O. Organization [facility] Address [address] [place] [address] Phone Care Team Providers Care Radiophone Operator Name Role Phone Belia Reid D.O., PP Unavailable CCM Unavailable Summary Purpose Interface Exchange Insurance Providers Payer name Policy type / Coverage type Covered republican ID Effective Begin Date Effective End Date [employer] MEDICARE Medicare Part B [id number] 2019 Unknown Family History Family History data not found Social History Social History Element Codes Description Effective Dates Tobacco history SNOMED CT: 245354292 Nonsmoker 09/13/2010 Allergies, Adverse Reactions, Alerts Substance Reaction Codes Entered Date Inactivated Date Status Eggs reaction [id number] 09/15/2015 No Inactive Date Active _ Unknown [...] Fill Instructions Levaquin 500 mg tablet RxNorm: 016665 1 Tablet(s) Oral QD 06/16/2019 06/23/2019 Active Flagyl 500 mg tablet RxNorm: 368470 1 Tablet(s) Oral three time s a day 06/16/2019 06/23/2019 Active Vancocin 125 mg capsule RxNorm: 023891 1 Capsule(s) Oral four t imes a day 06/08/2019 06/18/2019 Active diltiazem CD 240 mg capsule,extended release 24 hr RxNorm: 8 66622 1 Capsule(s) Oral QD 05/26/2019 11/21/2019 Active omeprazole 40 mg capsule,delayed release RxNorm: 451199 1 Capsule(s) Oral two times a day 05/26/2019 11/21/2019 Active Flagyl 500 mg tablet RxNorm: 917955 1 Tablet(s) Oral three time s a day 05/26/2019 06/05/2019 Inactive Cipro 250 mg tablet RxNorm: 605200 1 Tablet(s) Oral two times a day 05/26/2019 06/02/2019 Inactive hydroxyzine HCl 25 mg tablet RxNorm: 844742 1 Tablet(s) Oral QPM for itching/aniety 05/21/2019 06/27/2019 Active metoprolol tartrate 25 mg tablet RxNorm: 989188 1 Table t(s) Oral two times a day 05/21/2019 08/19/2019 Active hydroxyzine HCl 25 mg tablet RxNorm: 725542 1 Tablet(s) Oral QPM for itching/aniety 05/13/2019 05/20/2019 Inactive Singulair 10 mg tablet RxNorm: 550369 1 Tablet(s) Oral QPM 05/06/1905/12/2019 Inactive gabapentin 600 mg tablet RxNorm: 158374 1 Tablet(s) Oral QD 020 06/05/2019 Inactive Valium 5 mg tablet RxNorm: 812758 1 Tablet(s) Oral QPM for stri joao/muscle spasm 04/29/2019 05/29/2019 Inactive baclofen 10 mg tablet RxNorm: 896584 1 Tablet(s) Oral QPM for s pasm/neck pain 04/24/2019 05/23/2019 Inactive baclofen 10 mg tablet RxNorm: 228291 1 Tablet(s) Oral QPM for s pasm/neck pain 04/24/2019 04/23/2019 Inactive Novolin N NPH U-100 Insulin isophane 100 unit/mL subcu taneous susp RxNorm: 586811 23 Unit(s) Subcutaneous two times a day 04/20/2019 No Stop Date A ctive cyclobenzaprine 5 mg tablet RxNorm: 270608 1 Tablet(s) Oral three times a day as needed 04/16/2019 04/23/2019 Inactive hydroxyzine HCl 25 mg tablet RxNorm: 416377 1 Tablet(s) Oral three times a day for itching/aniety 04/08/2019 05/12/2019 Inactive gabapentin 600 mg tablet RxNorm: 640885 1 Tablet(s) Oral two ti mes a day 04/08/2019 05/05/2019 Inactive gabapentin 600 mg tablet RxNorm: 690977 1 Tablet(s) Oral two ti mes a day 04/08/2019 04/07/2019 Inactive Novolin N NPH U-100 Insulin isophane 100 unit/mL subcu taneous susp RxNorm: 811783 10 Unit(s) Subcutaneous two times a day 03/03/2019 04/19/2019 I nactive gabapentin 300 mg capsule RxNorm: 046106 1 Capsule(s) O ral every night at bedtime for neuropathy 02/26/2019 04/07/2019 Inactive gabapentin 300 mg capsule RxNorm: 947521 1 Capsule(s) O ral every night at bedtime for neuropathy 02/20/2019 02/25/2019 Inactive pramipexole 1 mg tablet RxNorm: 989543 1 Tablet(s) Oral QPM FOR RESTLESS LEGS (REPLACES REQUIP) 02/12/2019 02/07/2020 Active buspirone 5 mg tablet RxNorm: 759272 TAKE 1 TABLET THREE TIMES MILDRED Y 02/12/2019 05/12/2019 Inactive Lexapro 10 mg tablet RxNorm: 673564 TAKE 1 TABLET EVERY DAY FOR MOO D 01/31/2019 No Stop Date Active Ativan 0.5 mg tablet RxNorm: 569464 TAKE 1 TABLET BY MO UT THREE TIMES DAILY NEEDED FOR ANXIETY 01/26/2019 04/28/2019 Inactive Ativan 0.5 mg tablet RxNorm: 505774 TAKE 1 TABLET BY MO UTH THREE TIMES DAILY NEEDED FOR ANXIETY 01/05/2019 01/05/2019 Inactive Levaquin 500 mg tablet RxNorm: 379475 1 Tablet(s) Oral QD 12/25/2018 12/24/2018 Inactive Levaquin 500 mg tablet RxNorm: 836893 1 Tablet(s) Oral QD 12/25/2018 01/04/2019 Inactive baclofen 10 mg tablet RxNorm: 393349 1 Tablet(s) Oral three maico es a day 11/20/2018 01/19/2019 Inactive Ativan 0.5 mg tablet RxNorm: 943638 TAKE 1 TABLET BY MO UTH THREE TIMES DAILY NEEDED FOR ANXIETY 11/20/2018 01/04/2019 Inactive gabapentin 300 mg capsule RxNorm: 112947 1 Capsule(s) O ral every night at bedtime for neuropathy 11/20/2018 12/20/2018 Inactive Lexapro 10 mg tablet RxNorm: 110746 1 Tablet(s) PO QD for mood 07/201801/30/2019 Inactive Zithromax Z-Lj 250 mg tablet RxNorm: 493690 Tablet(s) PO take as directed 11/04/2018 11/19/2018 Inactive Insulin Syringe 1 mL 29 gauge x 1/2" RxNorm: 2 s yringes daily with insulin Dx: E11.65 10/08/2018 No Stop Date Active gabapentin 300 mg capsule RxNorm: 760374 1 Capsule(s) PO QHS fo r neuropathy 09/18/2018 10/17/2018 Inactive cyclobenzaprine 5 mg tablet RxNorm: 988732 1 Tablet(s) PO TID a s needed 09/09/2018 09/08/2018 Inactive cyclobenzaprine 5 mg tablet RxNorm: 618334 1 Tablet(s) PO TID a s needed 09/09/2018 10/08/2018 Inactive prednisone 20 mg tablet RxNorm: 035644 1 Tablet(s) PO QD 09/08/2018 0 09/12/2018 Inactive Lantus Solostar U-100 Insulin 100 unit/mL (3 mL) subcu taneous pen RxNorm: 018765 55 Unit(s) SQ QAM 08/28/2018 11/03/2018 Inactive hydroxyzine HCl 25 mg tablet RxNorm: 976874 1 Tablet(s) PO QHS for itching 08/20/2018 05/12/2019 Inactive Lexapro 10 mg tablet RxNorm: 122430 1 Tablet(s) PO QD for mood 08/0210/18/2018 Inactive sumatriptan 100 mg tablet RxNorm: 988964 1 Tablet(s) PO at headache onset. May repeat 1 in two hours if headache remains. Max of 2 per 24 hours 04/02/2018 05/20/2018 Inactive Diflucan 150 mg tablet RxNorm: 526139 1 Tablet(s) PO QD 03/18/2018 Inactive Diflucan 150 mg tablet RxNorm: 092577 1 Tablet(s) PO QD 03/18/2018 Inactive Flagyl 500 mg tablet RxNorm: 381920 1 Tablet(s) PO TID 03/17/2018 Inactive Levaquin 500 mg tablet RxNorm: 781234 1 Tablet(s) PO QD 03/17/2018 Inactive Levaquin 500 mg tablet RxNorm: 042918 1 Tablet(s) PO QD 03/17/2018 Inactive Flagyl 500 mg tablet RxNorm: 444514 1 Tablet(s) PO TID 03/17/2018 Inactive ketoconazole 200 mg tablet RxNorm: 409255 1 Tablet(s) PO QD 019 03/19/2018 Inactive Celebrex 200 mg capsule RxNorm: 650452 1 Capsule(s) PO BID 02/06/20 18 05/20/2018 Inactive tramadol 50 mg tablet RxNorm: 254113 1 Tablet(s) PO TID as needed 1 04/08/2017 05/20/2018 Inactive gabapentin 300 mg capsule RxNorm: 470203 1 Capsule(s) PO BID 201705/20/2018 Inactive Diflucan 150 mg tablet RxNorm: 034775 1 Tablet(s) PO QD 01/20/2018 Inactive pramipexole 1 mg tablet RxNorm: 392108 1 Tablet(s) PO Q PM FOR RESTLESS LEGS (REPLACES REQUIP) 01/08/2018 02/11/2019 Inactive cyclobenzaprine 10 mg tablet RxNorm: 439737 1 Tablet(s) PO TID as needed for muscle spasm 12/17/2017 05/20/2018 Inactive pramipexole 1 mg tablet RxNorm: 097390 TAKE 1 TABLET BY MOUTH ONCE DAILY IN THE EVENING FOR RESTLESS LEGS (REPLACES REQUIP) 12/04/2017 01/05/2018 Inac tive Amaryl 4 mg tablet RxNorm: 472455 1 Tablet(s) PO BID replaces 2mg 0 11/05/2017 12/16/2017 Inactive Singulair 10 mg tablet RxNorm: 506301 1 Tablet(s) PO QHS for al lergies/lungs 10/30/2017 12/16/2017 Inactive Diflucan 100 mg tablet RxNorm: 052476 1 Tablet(s) PO QD 10/23/2017 Inactive Ativan 0.5 mg tablet RxNorm: 640874 TAKE 1 TABLET BY MOUTH THRE E TIMES DAILY 08/30/2017 11/20/2018 Inactive buspirone 5 mg tablet RxNorm: 108012 1 Tablet(s) PO TID 07/11/2017 Inactive propranolol 60 mg tablet RxNorm: 062213 1 Tablet(s) PO BID repl aces 40mg dose 06/26/2017 12/16/2017 Inactive Amaryl 4 mg tablet RxNorm: 899246 1 Tablet(s) PO BID replaces 2mg 0 06/12/2017 11/05/2017 Inactive omeprazole 40 mg capsule,delayed release RxNorm: 263357 1 Capsule(s) PO BID TAKE ONE CAPSULE BY MOUTH TWICE DAILY 05/30/2017 11/25/2017 Inactive pramipexole 1 mg tablet RxNorm: 514993 1 Tablet(s) PO Q PM for restless legs--replaces requip 05/30/2017 11/25/2017 Inactive amitriptyline 50 mg tablet RxNorm: 071570 1 Tablet(s) PO QHS 201709/16/2017 Inactive Diflucan 100 mg tablet RxNorm: 414176 1 Tablet(s) PO BID 05/07/2017 0 05/20/2017 Inactive nystatin (bulk) 100 million unit powder RxNorm: Application TO P BID 05/07/2017 05/20/2018 Inactive cholestyramine (with sugar) 4 gram oral powder RxNorm: 339328 1 Unit Dose PO QD 05/07/2017 01/20/2018 Inactive Ativan 0.5 mg tablet RxNorm: 419617 TAKE ONE TABLET BY MOUTH TH REE TIMES DAILY 05/01/2017 09/02/2017 Inactive Trulicity 1.5 mg/0.5 mL subcutaneous pen injector RxNorm: 15 87462 1 Unit Dose SQ WEEKLY 02/22/2017 03/23/2017 Inactive doxycycline hyclate 100 mg capsule RxNorm: 6403786 1 Capsule(s) PO BID 01/23/2017 02/05/2017 Inactive Amaryl 4 mg tablet RxNorm: 652764 1 Tablet(s) PO BID replaces 2mg 1 03/25/2016 05/22/2017 Inactive magnesium oxide 400 mg capsule RxNorm: 411674 1 Capsule(s) PO QD 07/18/2017 Inactive Ativan 0.5 mg tablet RxNorm: 714801 TAKE ONE TABLET BY MOUTH TH REE TIMES DAILY 01/17/2017 05/01/2017 Inactive Amaryl 2 mg tablet RxNorm: 128524 1 Tablet(s) PO BID 12/27/201601/22 Inactive Amaryl 2 mg tablet RxNorm: 959106 1 Tablet(s) PO BID 12/26/201612/26 Inactive Ativan 0.5 mg tablet RxNorm: 715057 TAKE ONE TABLET BY MOUTH TH REE TIMES DAILY 12/05/2016 01/18/2017 Inactive pramipexole 1 mg tablet RxNorm: 714283 1 Tablet(s) PO Q PM for restless legs--replaces requip 11/26/2016 05/30/2017 Inactive Mobic 15 mg tablet RxNorm: 513976 1 Tablet(s) PO QD 10/08/20162016 Inactive cyclobenzaprine 5 mg tablet RxNorm: 182739 1/2- 1 Tablet(s) PO TID 10/08/2016 10/17/2016 Inactive Ativan 0.5 mg tablet RxNorm: 916556 1 Tablet(s) PO TID 09/20/201607/2016 Inactive amitriptyline 50 mg tablet RxNorm: 969958 1 Tablet(s) PO QHS 201605/30/2017 Inactive propranolol 60 mg tablet RxNorm: 541207 1 Tablet(s) PO BID repl aces 40mg dose 09/19/2016 06/26/2017 Inactive Ativan 0.5 mg tablet RxNorm: 930289 1 Tablet(s) PO TID 08/20/2016 Inactive omeprazole 40 mg capsule,delayed release RxNorm: 410406 1 Capsule(s) PO BID TAKE ONE CAPSULE BY MOUTH TWICE DAILY 08/20/2016 05/30/2017 Inactive amitriptyline 50 mg tablet RxNorm: 927865 1 Tablet(s) PO QHS 201609/18/2016 Inactive pramipexole 1 mg tablet RxNorm: 224736 1 Tablet(s) PO Q PM for restless legs--replaces requip 07/23/2016 11/25/2016 Inactive Amaryl 2 mg tablet RxNorm: 648541 1 Tablet(s) PO BID 07/23/201612/27 Inactive propranolol 40 mg tablet RxNorm: 671332 1 Tablet(s) PO BID 07/13/19 17 09/18/2016 Inactive Ativan 0.5 mg tablet RxNorm: 921531 1 Tablet(s) PO QID 06/19/2016 Inactive Amaryl 2 mg tablet RxNorm: 562961 1 Tablet(s) PO BID 06/19/201607/22 Inactive Ativan 0.5 mg tablet RxNorm: 880812 1 Tablet(s) PO QID 06/19/2016 Inactive buspirone 5 mg tablet RxNorm: 965037 1 Tablet(s) PO TID 06/19/2016 Inactive Ativan 0.5 mg tablet RxNorm: 456689 1 Tablet(s) PO BID 05/24/2016 Inactive buspirone 5 mg tablet RxNorm: 416364 1 Tablet(s) PO TID 05/23/2016 Inactive Macrobid 100 mg capsule RxNorm: 420108 1 Capsule(s) PO QOD 05/03/1910/07/2016 Inactive pramipexole 1 mg tablet RxNorm: 089822 Tablet(s) 1 Tabl et(s) PO QPM for restless legs--replaces requip 04/26/2016 06/24/2016 Inactive propranolol 40 mg tablet RxNorm: 409315 TAKE ONE TABLET BY MOUT H TWICE DAILY 04/26/2016 06/24/2016 Inactive Detrol LA 4 mg capsule,extended release RxNorm: 008101 1 Capsul e(s) PO QHS 04/03/2016 05/02/2016 Inactive prednisone 20 mg tablet RxNorm: 810717 1 Tablet(s) PO QD 02/29/2016 0 03/04/2016 Inactive Actos 30 mg tablet RxNorm: 186519 TAKE ONE TABLET BY MOUTH ONCE DAILY 02/27/2016 12/19/2016 Inactive clindamycin 300 mg capsule RxNorm: 524839 1 Capsule(s) PO TID 02/0102/08/2016 Inactive Flagyl 500 mg tablet RxNorm: 440180 1 Tablet(s) PO BID 02/02/201609/2015 Inactive omeprazole 40 mg capsule,delayed release RxNorm: 781594 TAKE ONE CAPSULE BY MOUTH TWICE DAILY 01/15/2016 07/12/2016 Inactive gabapentin 300 mg capsule RxNorm: 260516 1 Capsule(s) PO QAM an d 2 po q HS 01/05/2016 06/18/2016 Inactive gabapentin 300 mg capsule RxNorm: 395528 1 Capsule(s) P O BID 1 Capsule(s) PO QHS 12/05/2015 01/04/2016 Inactive cyclobenzaprine 10 mg tablet RxNorm: 155083 1 Tablet(s) PO TID for spasm as needed for muscle spasm 12/05/2015 06/18/2016 Inactive ciprofloxacin 250 mg tablet RxNorm: 196119 1 Tablet(s) PO BID 12/0412/14/2015 Inactive pramipexole 1 mg tablet RxNorm: 853084 Tablet(s) 1 Tabl et(s) PO QPM for restless legs--replaces requip 11/07/2015 11/26/2016 Inactive Januvia 100 mg tablet RxNorm: 999960 1 Tablet(s) PO QD 10/26/201504/2015 Inactive propranolol 40 mg tablet RxNorm: 891290 TAKE ONE TABLET BY MOUT H TWICE DAILY 10/25/2015 04/21/2016 Inactive gabapentin 300 mg capsule RxNorm: 156392 1 Capsule(s) PO QHS 201512/04/2015 Inactive Cipro 500 mg tablet RxNorm: 871319 1 Tablet(s) PO BID 10/05/201511/2015 Inactive pramipexole 1 mg tablet RxNorm: 674603 Tablet(s) 1 Tabl et(s) PO QPM for restless legs--replaces requip 10/04/2015 11/02/2015 Inactive propranolol 40 mg tablet RxNorm: 107632 TAKE ONE TABLET BY MOUT H TWICE DAILY 09/26/2015 10/24/2015 Inactive Amaryl 2 mg tablet RxNorm: 664010 1 Tablet(s) PO QD 09/15/20152016 Inactive gabapentin 300 mg capsule RxNorm: 898859 1 Capsule(s) PO QHS 201510/14/2015 Inactive buspirone 5 mg tablet RxNorm: 060624 1 Tablet(s) PO TID 09/15/2015 Inactive pramipexole 1 mg tablet RxNorm: 714009 Tablet(s) 1 Tabl et(s) PO QPM for restless legs--replaces requip 09/08/2015 10/03/2015 Inactive pramipexole 1 mg tablet RxNorm: 718252 1 Tablet(s) PO Q PM for restless legs--replaces requip 08/08/2015 09/08/2015 Inactive Amaryl 2 mg tablet RxNorm: 180959 1 Tablet(s) PO QD 07/07/20152015 Inactive pramipexole 1 mg tablet RxNorm: 111011 1 Tablet(s) PO Q PM for restless legs--replaces requip 07/05/2015 08/03/2015 Inactive ropinirole 2 mg tablet RxNorm: 763496 TAKE ONE TABLET BY MOUTH TWICE DAILY 05/09/2015 09/14/2015 Inactive Diflucan 100 mg tablet RxNorm: 788972 1 Tablet(s) PO QD 03/30/2015 Inactive propranolol 40 mg tablet RxNorm: 243541 1 Tablet(s) PO BID 02/24/20 15 08/21/2015 Inactive [SAVINGS FOR UNINSURED PATIE NTS -- BIN:188983, PCN: ASPROD1, Group: AME08, ID# [id number], Process claim through [employer], for questions: . THIS IS NOT INSURANCE.] Flagyl 500 mg tablet RxNorm: 377298 1 Tablet(s) PO BID 02/03/201502/2015 Inactive Cipro 500 mg tablet RxNorm: 681360 1 Tablet(s) PO BID 02/03/201502/01 Inactive Carafate 1 gram tablet RxNorm: 773166 1 Tablet(s) PO QID make i nto slurry 02/03/2015 09/14/2015 Inactive ondansetron HCl 4 mg tablet RxNorm: 569924 1 Tablet(s) PO Q4H as needed for nausea 12/29/2014 01/04/2016 Inactive Diflucan 100 mg tablet RxNorm: 273911 1 Tablet(s) PO QD 12/29/2014 Inactive Keflex 500 mg capsule RxNorm: 443469 1 Capsule(s) PO TID 12/29/2014 1 03/09/2014 Inactive omeprazole 40 mg capsule,delayed release RxNorm: 282818 1 Capsu le(s) PO BID 12/27/2014 12/21/2015 Inactive [SAVINGS FOR UNINSUR ED PATIENTS -- BIN:963317, PCN: ASPROD1, Group: AME08, ID# [id number], Process claim through [employer], for questions: . THIS IS NOT INSURANCE.] ropinirole 2 mg tablet RxNorm: 585090 1 Tablet(s) PO BID 09/29/2014 0 03/27/2015 Inactive [SAVINGS FOR UNINSURED PATIENTS -- BIN:0 37671, PCN: ASPROD1, Group: AME08, ID# [id number], Process claim through [employer], for questions: . THIS IS NOT INSURANCE.] buspirone 5 mg tablet RxNorm: 034823 1 Tablet(s) PO TID 09/17/2014 Inactive ropinirole 2 mg tablet RxNorm: 574673 1 Tablet(s) PO BID 09/02/2014 0 09/28/2014 Inactive [SAVINGS FOR UNINSURED PATIENTS -- BIN:0 45005, PCN: ASPROD1, Group: AME08, ID# [id number], Process claim through [employer], for questions: . THIS IS NOT INSURANCE.] Zyrtec 10 mg tablet RxNorm: 9676711 1 Tablet(s) PO QD 09/02/201412/02 Inactive propranolol 40 mg tablet RxNorm: 789293 1 Tablet(s) PO BID 07/21/19 15 02/23/2015 Inactive [SAVINGS FOR UNINSURED PATIE NTS -- BIN:070204, PCN: ASPROD1, Group: AME08, ID# [id number], Process claim through [employer], for questions: . THIS IS NOT INSURANCE.] ropinirole 2 mg tablet RxNorm: 005152 1 Tablet(s) PO QHS 05/14/2014 0 09/01/2014 Inactive [SAVINGS FOR UNINSURED PATIENTS -- BIN:0 60887, PCN: ASPROD1, Group: AME08, ID# [id number], Process claim through [employer], for questions: . THIS IS NOT INSURANCE.] cyclobenzaprine 10 mg tablet RxNorm: 260609 1 Tablet(s) PO QHS for spasm 04/06/2014 09/01/2014 Inactive ipratropium-albuterol 0.5 mg-3 mg(2.5 mg base)/3 mL ne bulization soln RxNorm: 8177326 1 Unit Dose INH Q4H 03/16/2014 No Stop Date Active [SAVINGS FOR UNINSURED PATIENTS -- BIN:596239, PCN: ASPROD1, Group: AME08, ID# [id number], Process claim through [employer], for questions: . THIS IS NOT INSURANCE.] prednisone 20 mg tablet RxNorm: 508906 1 Tablet(s) PO BID 03/09/2014 03/15/2014 Inactive [SAVINGS FOR UNINSURED PATIENTS -- BIN:0 44488, PCN: ASPROD1, Group: AME08, ID# [id number], Process claim through [employer], for questions: . THIS IS NOT INSURANCE.] ipratropium-albuterol 0.5 mg-3 mg(2.5 mg base)/3 mL ne bulization soln RxNorm: 6398581 1 Unit Dose INH Q4H 03/09/2014 03/15/2014 Inactive [SAVINGS FOR UNINSURED PATIENTS -- BIN:335593, PCN: ASPROD1, Group: AME08, ID# [id number], Process claim through [employer], for questions: . THIS IS NOT INSURANCE.] Levaquin 500 mg tablet RxNorm: 198927 1 Tablet(s) PO QD 03/09/2014 Inactive [SAVINGS FOR UNINSURED PATIENTS -- BIN:0 37257, PCN: ASPROD1, Group: AME08, ID# [id number], Process claim through [employer], for questions: . THIS IS NOT INSURANCE.] Carafate 1 gram tablet RxNorm: 607748 1 Tablet(s) PO AC & HS ma ke into slurry 02/09/2014 09/01/2014 Inactive [SAVINGS FOR UNINSUR ED PATIENTS -- BIN:319945, PCN: ASPROD1, Group: AME08, ID# [id number], Process claim through [employer], for questions: . THIS IS NOT INSURANCE.] Fioricet 50 mg-300 mg-40 mg capsule RxNorm: 2926679 1-2 Capsule(s) PO Q4H as needed for headache --max of 6 a day 02/09/2014 09/01/2014 Inactive [SAVINGS FOR UNINSURED PATIENTS -- BIN:367020, PCN: ASPROD1, Group: AME08, ID# [id number], Process claim through [employer], for questions: . THIS IS NOT INSURANCE.] propranolol 40 mg tablet RxNorm: 077390 1 Tablet(s) PO BID 12/08/19 14 06/04/2014 Inactive [SAVINGS FOR UNINSURED PATIE NTS -- BIN:744041, PCN: ASPROD1, Group: AME08, ID# [id number], Process claim through [employer], for questions: . THIS IS NOT INSURANCE.] buspirone 5 mg tablet RxNorm: 687645 1 Tablet(s) PO TID 12/02/2013 Inactive omeprazole 40 mg capsule,delayed release RxNorm: 287699 1 Capsu le(s) PO BID 11/25/2013 11/19/2014 Inactive [SAVINGS FOR UNINSUR ED PATIENTS -- BIN:330349, PCN: ASPROD1, Group: AME08, ID# [id number], Process claim through [employer], for questions: . THIS IS NOT INSURANCE.] ropinirole 2 mg tablet RxNorm: 173025 1 Tablet(s) PO QHS 11/10/2013 0 05/08/2014 Inactive [SAVINGS FOR UNINSURED PATIENTS -- BIN:0 92007, PCN: ASPROD1, Group: AME08, ID# [id number], Process claim through [employer], for questions: . THIS IS NOT INSURANCE.] Cipro 500 mg tablet RxNorm: 331862 1 Tablet(s) PO BID 10/21/201312/03 Inactive [SAVINGS FOR UNINSURED PATIENTS -- BIN:0 24754, PCN: ASPROD1, Group: AME08, ID# [id number], Process claim through [employer], for questions: . THIS IS NOT INSURANCE.] hydroxyzine HCl 25 mg tablet RxNorm: 447454 1 Tablet(s) PO Q4-6 H as needed 10/05/2013 01/04/2016 Inactive [SAVINGS FOR UNINSUR ED PATIENTS -- BIN:418517, PCN: ASPROD1, Group: AME08, ID# [id number], Process claim through [employer], for questions: . THIS IS NOT INSURANCE.] triamcinolone acetonide 0.1 % topical cream RxNorm: 1236894 Appl ication TOP BID 10/05/2013 09/01/2014 Inactive [SAVINGS FOR UNINSUR ED PATIENTS -- BIN:195247, PCN: ASPROD1, Group: AME08, ID# [id number], Process claim through [employer], for questions: . THIS IS NOT INSURANCE.] albuterol sulfate HFA 90 mcg/actuation aerosol inhaler RxNor m: 1464813 2 Puff(s) INH Q4H as needed for cough 10/01/2013 12/22/2013 Inactive [MAKSIM INGS FOR UNINSURED PATIENTS -- BIN:698278, PCN: ASPROD1, Group: AME08, ID# [id number], Process claim through [employer], for questions: . THIS IS NOT INSURANCE.] propranolol 40 mg tablet RxNorm: 846694 1 Tablet(s) PO BID 09/02/1911/2911/29/2013 Inactive [SAVINGS FOR UNINSURED PATIE NTS -- BIN:830572, PCN: ASPROD1, Group: AME08, ID# [id number], Process claim through [employer], for questions: . THIS IS NOT INSURANCE.] propranolol 40 mg tablet RxNorm: 563663 1 Tablet(s) PO BID 08/05/19 14 08/31/2013 Inactive [SAVINGS FOR UNINSURED PATIE NTS -- BIN:101910, PCN: ASPROD1, Group: AME08, ID# [id number], Process claim through [employer], for questions: . THIS IS NOT INSURANCE.] Toprol XL 50 mg tablet,extended release RxNorm: 462366 1 Tablet (s) PO QHS 07/23/2013 08/03/2013 Inactive Macrobid 100 mg capsule RxNorm: 514555 1 Capsule(s) PO BID 07/04/19 14 07/09/2013 Inactive Toprol XL 50 mg tablet,extended release RxNorm: 232937 1 Tablet (s) PO QHS 05/28/2013 06/26/2013 Inactive ciprofloxacin 500 mg tablet RxNorm: 998819 1 Tablet(s) PO BID 05/2706/02/2013 Inactive Bystolic 5 mg tablet RxNorm: 996598 1 Tablet(s) PO QD 05/27/201305/03 Inactive ropinirole 2 mg tablet RxNorm: 244203 1 Tablet(s) PO QHS 04/22/2013 0 11/09/2013 Inactive Cipro 250 mg tablet RxNorm: 963784 1 Tablet(s) PO BID 04/06/201311/2013 Inactive ropinirole 2 mg tablet RxNorm: 690722 1 Tablet(s) PO QHS 02/17/2013 0 04/21/2013 Inactive Amaryl 2 mg tablet RxNorm: 786022 1 Tablet(s) PO QAM 11/11/201211/10 Inactive Amaryl 2 mg tablet RxNorm: 594353 1 Tablet(s) PO QAM 11/11/201204/05 Inactive omeprazole 40 mg capsule,delayed release RxNorm: 496087 1 Capsu le(s) PO BID 08/14/2012 08/08/2013 Inactive Bystolic 5 mg tablet RxNorm: 062773 1 Tablet(s) PO QD 08/14/201205/03 Inactive propranolol 60 mg tablet RxNorm: 841823 Tablet(s) PO TAKE 1 TAB LET TWICE DAILY 08/01/2012 09/01/2012 Inactive Bystolic 5 mg tablet RxNorm: 574845 1 Tablet(s) PO QD 07/21/201207/02 Inactive Bystolic 5 mg tablet RxNorm: 592011 1 Tablet(s) PO QD 07/21/201207/03 Inactive Prilosec 40 mg capsule,delayed release RxNorm: 002248 1 Capsule (s) PO BID 06/24/2012 07/21/2012 Inactive buspirone 10 mg tablet RxNorm: 753041 1 Tablet(s) PO TID 05/08/2012 0 05/23/2016 Inactive Valium 10 mg tablet RxNorm: 163093 1 Tablet(s) PO BID 04/02/201207/03 Inactive Endocet 10 mg-325 mg tablet RxNorm: 8739139 1 Tablet(s) PO QID 03/0607/21/2012 Inactive as needed for severe pain Valium 10 mg tablet RxNorm: 817050 1 Tablet(s) PO BID 02/27/2012 No S top Date Active Endocet 10 mg-325 mg tablet RxNorm: 8106766 1 Tablet(s) PO QID 02/0203/27/2012 Inactive as needed for severe pain Endocet 10 mg-325 mg tablet RxNorm: 8476993 1 Tablet(s) PO QID 01/0302/26/2012 Inactive as needed for severe pain Valium 10 mg tablet RxNorm: 297569 1 Tablet(s) PO BID 01/29/2012 No S top Date Active Protonix 40 mg tablet,delayed release RxNorm: 759253 1 Tablet(s ) PO QD 01/28/2012 07/21/2012 Inactive metformin ER 500 mg tablet,extended release 24 hr RxNorm: 86 0977 1 Tablet(s) PO QD 12/26/2011 07/20/2012 Inactive Trazadone 150 mg Tablet RxNorm: 1 Tablet(s) PO QHS prn sleep 1 04/23/2012 Inactive Endocet 10 mg-325 mg tablet RxNorm: 1949139 1 Tablet(s) PO QID 12/0301/24/2012 Inactive as needed for severe pain Nexium 40 mg capsule,delayed release RxNorm: 204422 1 Capsule(s ) PO QD 12/26/2011 01/27/2012 Inactive Symbicort 160 mcg-4.5 mcg/actuation HFA Aerosol Inhaler RxNo rm: 0341743 2 Puff(s) INH BID 12/04/2011 07/21/2012 Inactive Endocet 10 mg-325 mg tablet RxNorm: 3581681 1 Tablet(s) PO QID 11/0312/25/2011 Inactive as needed for severe pain metformin ER 500 mg tablet,extended release 24 hr RxNorm: 86 0977 1 Tablet(s) PO QD 11/20/2011 12/19/2011 Inactive metformin ER 500 mg tablet,extended release 24 hr RxNorm: 86 0977 1 Tablet(s) PO QD 11/20/2011 11/19/2011 Inactive amitriptyline 100 mg tablet RxNorm: 973783 Tablet(s) PO QHS 1 a nd 1/2 tabs QHS 11/12/2011 11/13/2011 Inactive Valium 10 mg tablet RxNorm: 453457 1 Tablet(s) PO BID 11/09/2011 No S top Date Active Endocet 10 mg-325 mg tablet RxNorm: 4573547 1 Tablet(s) PO QID 10/0211/14/2011 Inactive as needed for severe pain Aricept 10 mg Tab RxNorm: 478278 1 Tablet(s) PO QD 10/05/2011 013 Inactive Valium 10 mg tablet RxNorm: 275271 1 Tablet(s) PO BID 10/05/2011 No S top Date Active Endocet 10 mg-325 mg Tab RxNorm: 8243476 1 Tablet(s) PO QID 012 10/09/2011 Inactive as needed for severe pain Aricept 10 mg Tab RxNorm: 543794 1 Tablet(s) PO QD 08/14/2011 012 Inactive Endocet 10 mg-325 mg Tab RxNorm: 1725228 1 Tablet(s) PO QID 012 08/31/2011 Inactive as needed for severe pain Valium 10 mg Tab RxNorm: 114091 1 Tablet(s) PO BID 08/02/2011 No Stop Date Active propranolol 60 mg tablet RxNorm: 883356 1 Tablet(s) PO BID 07/26/19 12 09/11/2011 Inactive amitriptyline 100 mg tablet RxNorm: 643070 Tablet(s) PO QHS 1 a nd / tabs QHS 06/20/2011 09/11/2011 Inactive buspirone 10 mg tablet RxNorm: 243515 1 Tablet(s) PO BID 06/18/2011 0 09/15/2011 Inactive propranolol 60 mg Tab RxNorm: 841547 1 Tablet(s) PO BID 06/18/2011 Inactive gabapentin 800 mg Tab RxNorm: 360505 1 Tablet(s) PO BID 06/18/2011 Inactive ropinirole 2 mg tablet RxNorm: 191145 1 Tablet(s) PO QHS 05/29/2011 0 08/26/2011 Inactive trimethoprim 100 mg Tab RxNorm: 236532 1 Tablet(s) PO QHS 05/29/2011 07/21/2012 Inactive Endocet 10 mg-325 mg Tab RxNorm: 0187728 1 Tablet(s) PO QID 012 2011 Inactive as needed for severe pain Valium 10 mg Tab RxNorm: 739154 1 Tablet(s) PO QHS N eed to take med as prescribed. this is a 40 day RX. No early fills. 05/17/2011 05/20/2018 Inactive propranolol 60 mg Tab RxNorm: 536654 1 Tablet(s) PO BID 04/16/2011 Inactive Neurontin 800 mg Tab RxNorm: 931757 1 Tablet(s) PO QHS 04/05/201103/2011 Inactive Endocet 10 mg-325 mg Tab RxNorm: 8900802 1 Tablet(s) PO QID 012 05/02/2011 Inactive as needed for severe pain oxycodone-acetaminophen 10 mg-325 mg tablet RxNorm: 9492808 1 Ta blet(s) PO Q4H 03/28/2011 05/19/2012 Inactive Valium 10 mg Tab RxNorm: 514789 1 Tablet(s) PO QHS 03/28/2011 012 Inactive buspirone 10 mg Tab RxNorm: 619244 1 Tablet(s) PO BID 03/27/201106/02 Inactive propranolol 60 mg Tab RxNorm: 745560 1 Tablet(s) PO BID 03/19/2011 Inactive Klor-Con M20 20 mEq Tab RxNorm: 9836956 1 Tablet(s) PO QD 03/19/2011 07/21/2012 Inactive Aricept 10 mg Tab RxNorm: 181150 1 Tablet(s) PO QD 02/27/2011 012 Inactive propranolol 60 mg Tab RxNorm: 565660 1 Tablet(s) PO BID 02/19/2011 Inactive omeprazole 40 mg capsule,delayed release RxNorm: 886505 1 Capsu le(s) PO BID 01/24/2011 05/23/2011 Inactive clindamycin 300 mg capsule RxNorm: 412736 1 Capsule(s) PO TID 01/2402/02/2011 Inactive propranolol 60 mg Tab RxNorm: 494539 1 Tablet(s) PO BID 01/22/2011 No Stop Date Active nystatin 100,000 unit/g Topical Cream RxNorm: 177484 Applicatio n TOP BID 01/15/2011 01/14/2011 Inactive to rash for 2-4 week s Diflucan 200 mg Tab RxNorm: 238444 1 Tablet(s) PO QD 01/15/201101/28 Inactive buspirone 10 mg Tab RxNorm: 650838 1 Tablet(s) PO BID 01/08/201103/05 Inactive Valium 10 mg Tab RxNorm: 813604 1 Tablet(s) PO QHS 01/05/2011 012 Inactive Diflucan 200 mg Tab RxNorm: 720778 1 Tablet(s) PO QD 01/01/201101/14 Inactive Diflucan 200 mg Tab RxNorm: 446949 1 Tablet(s) PO QD 12/18/201012/31 Inactive Valium 10 mg Tab RxNorm: 061287 1 Tablet(s) PO QHS 12/12/2010 011 Inactive Diflucan 200 mg Tab RxNorm: 753362 1 Tablet(s) PO QD 12/07/201012/18 Inactive Aricept 10 mg Tab RxNorm: 322282 1 Tablet(s) PO QD 11/20/2010 011 Inactive ropinirole 1 mg Tab RxNorm: 099884 1 Tablet(s) PO QHS 11/16/201005/03 Inactive enalapril maleate 5 mg Tab RxNorm: 895659 1 Tablet(s) PO QD 011 05/20/2018 Inactive buspirone 10 mg Tab RxNorm: 761651 1 Tablet(s) PO BID 11/16/201012/02 Inactive Valium 10 mg Tab RxNorm: 710271 1 Tablet(s) PO QHS 11/07/2010 011 Inactive Pyridium 100 mg Tab RxNorm: 2817887 1 Tablet(s) PO TID 11/02/201004/2010 Inactive Macrobid 100 mg Cap RxNorm: 9086743 1 Capsule(s) PO BID 11/02/2010 Inactive buspirone 10 mg Tab RxNorm: 346340 1 Tablet(s) PO QHS 10/18/201005/02 Inactive propranolol 60 mg Tab RxNorm: 966871 1 Tablet(s) PO BID 09/18/2010 Inactive Valium 10 mg Tab RxNorm: 140398 1 Tablet(s) PO QHS 09/05/2010 011 Inactive Aricept 10 mg Tab RxNorm: 681281 1 Tablet(s) PO QD 08/14/2010 011 Inactive Valium 10 mg Tab RxNorm: 448211 1 Tablet(s) PO QHS 06/26/2010 011 Inactive ropinirole 1 mg Tab RxNorm: 031318 1 Tablet(s) PO QHS 06/19/201010/02 Inactive omeprazole 40 mg Cap, delayed release RxNorm: 221152 1 Capsule( s) PO QD 06/07/2010 10/04/2010 Inactive Endocet 10 mg-325 mg Tab RxNorm: 2752824 1 Tablet(s) PO QID as needed for severe pain 06/07/2010 03/07/2011 Inactive Endocet 10 mg-325 mg Tab RxNorm: 7774975 1 Tablet(s) PO QID as needed for severe pain 05/04/2010 06/02/2010 Inactive Valium 10 mg Tab RxNorm: 249079 1 Tablet(s) PO QHS 05/01/2010 011 Inactive propranolol 60 mg Tab RxNorm: 093197 1 Tablet(s) PO BID 04/03/2010 Inactive Valium 10 mg Tab RxNorm: 739087 1 Tablet(s) PO QHS 03/28/2010 011 Inactive omeprazole 40 mg Cap, Delayed Release RxNorm: 720379 1 Capsule( s) PO QD 03/28/2010 06/06/2010 Inactive Endocet 10 mg-325 mg Tab RxNorm: 3366112 1 Tablet(s) PO QID prn ari n 03/27/2010 05/20/2018 Inactive Valium 10 mg Tab RxNorm: 249001 1 Tablet(s) PO QHS 02/20/2010 011 Inactive Diflucan 100 mg Tab RxNorm: 651061 1 Tablet(s) PO BID 01/23/201003/2009 Inactive Diflucan 100 mg Tab RxNorm: 873921 1 Tablet(s) PO BID 01/05/201001/02 Inactive Aricept 10 mg Tab RxNorm: 525022 1 Tablet(s) PO QD 12/01/2009 011 Inactive OxyContin 20 mg 12 hr Tab RxNorm: 3779171 1 Tablet(s) PO BID 200904/05/2010 Inactive oxycodone-acetaminophen 10 mg-325 mg Tab RxNorm: 3510821 1 Table t(s) PO Q4H 11/22/2009 11/26/2009 Inactive Phenergan 25 mg Tab RxNorm: 239227 1 Tablet(s) PO PRN MIGRAINE 11/0303/07/2011 Inactive Demerol 100 mg Tab RxNorm: 880688 1 Tablet(s) PO PRN MIGRAINE 11/2203/07/2011 Inactive Oxycodone-Acetaminophen 10 mg-325 mg Tab RxNorm: 3389236 1 Table t(s) PO Q4H 10/11/2009 10/15/2009 Inactive Percocet 10 mg-325 mg Tab RxNorm: 8849932 1 Tablet(s) PO Q4H 200910/24/2009 Inactive propranolol 60 mg Tab RxNorm: 565925 1 Tablet(s) PO BID 08/29/2009 Inactive Valium 10 mg Tab RxNorm: 309885 1 Tablet(s) PO QHS 08/16/2009 010 Inactive Keflex 500 mg Cap RxNorm: 199305 1 Capsule(s) PO BID 07/25/200907/31 Inactive Hydroxyzine 25 mg Tab RxNorm: 003606 1 Tablet(s) PO TID 07/25/2009 Inactive Prednisone 20 mg Tab RxNorm: 693092 1 Tablet(s) PO BID 07/25/2009 Inactive Demerol 100 mg Tab RxNorm: 405352 1 Tablet(s) PO PRN MIGRAINE 07/25 No Stop Date Active Ropinirole 1 mg Tab RxNorm: 219645 1 Tablet(s) PO HS 07/20/200902/14 Inactive Valium 10 mg Tab RxNorm: 505143 1 Tablet(s) PO QHS 07/18/2009 010 Inactive Endocet 10 mg-325 mg Tab RxNorm: 2818677 1 Tablet(s) PO TID 010 07/07/2009 Inactive Demerol 100 mg Tab RxNorm: 213181 1 Tablet(s) PO PRN MIGRAINE 06/08 No Stop Date Active Ropinirole 1 mg Tab RxNorm: 444997 1 Tablet(s) PO HS 05/16/200907/14 Inactive ipratropium-albuterol 0.5 mg-3 mg(2.5 mg base)/3 mL ne bulization soln RxNorm: 1169953 1 Unit Dose INH Q4H as needed No Start Date Active MagOx 400 mg (241.3 mg magnesium) tablet RxNorm: 049522 1 Table t(s) PO BID No Start Date Active Vitamin B12 1000mcg Tablet RxNorm: 1 Tablet(s) PO QD No Start Date Active Vitamin D3 5,000 unit tablet RxNorm: 276654 1 Tablet(s) PO QD No Star t Date Active Tylenol Arthritis Pain 650 mg tablet,extended release RxNorm : 6810788 1 Tablet(s) PO Q4H No Start Date Active Lotrimin AF 2 % topical powder RxNorm: 932200 1 Application TOP BID No Start Date Active enalapril maleate 5 mg Tab RxNorm: 345357 1 Tablet(s) PO QD No Star t Date 07/20/2012 Inactive Demerol 100 mg Tab RxNorm: 919795 Tablet(s) PO PRN MIGRAINE No Star t Date 06/02/2009 Inactive metformin 500 mg tablet RxNorm: 596381 1 Tablet(s) PO QD No Start D ate 04/05/2013 Inactive Breo Ellipta 100 mcg-25 mcg/dose powder for inhalation RxNor m: 3115266 1 Puff(s) INH BID No Start Date 01/04/2016 Inactive Mag-Oxide 400 mg Tab RxNorm: 443876 1 Tablet(s) PO QD No Start Date 0 07/21/2012 Inactive Cipro 500 mg Tab RxNorm: 922927 1 Tablet(s) PO QD No Start Date 04/05 Inactive Ativan 0.5 mg tablet RxNorm: 364497 1 Tablet(s) PO TID as needed No Start Date 05/06/2019 Inactive melatonin 3 mg tablet RxNorm: 751241 2 Tablet(s) PO QHS No Start Da te 08/19/2018 Inactive buspirone 10 mg Tab RxNorm: 605645 1 Tablet(s) PO QD No Start Date Inactive sucralfate 100 mg/mL Oral Susp RxNorm: 912582 2 Teaspoon(s) PO QID No Start Date 07/21/2012 Inactive hydrocodone 5 mg-acetaminophen 325 mg tablet RxNorm: 738438 1 Tablet(s) PO Q4H as needed No Start Date 08/19/2018 Inactive Amaryl 2 mg tablet RxNorm: 146318 1 Tablet(s) PO BID No Start Date Inactive OxyContin 20 mg 12 hr Tab RxNorm: 3291660 1 Tablet(s) PO BID No Sta rt Date 11/27/2009 Inactive propranolol 40 mg tablet RxNorm: 239374 1 Tablet(s) PO QID No Start Date 01/19/2018 Inactive Trazadone 150 mg Tablet RxNorm: 1-2 Tablet(s) PO QHS prn sleep No Start Date 08/09/2010 Inactive propranolol 60 mg Tab RxNorm: 881666 1/2 Tablet(s) PO BID No Start Date 01/21/2011 Inactive insulin NPH and regular human subcutaneous RxNorm: 6384313 subcu taneous No Start Date 11/20/2018 Inactive Ativan 0.5 mg tablet RxNorm: 673157 1 Tablet(s) PO QID No Start Date 06/18/2016 Inactive Vasotec 5 mg Tab RxNorm: 341218 1 Tablet(s) PO BID No Start Date 06/2011 Inactive Toprol XL 50 mg tablet,extended release RxNorm: 039210 1 Tablet (s) PO BID No Start Date 04/05/2013 Inactive Ativan 0.5 mg tablet RxNorm: 023826 1 Tablet(s) PO TID No Start Date 05/25/2016 Inactive Klor-Con M20 20 mEq Tab RxNorm: 5781478 1 Tablet(s) PO QD No Start Date 03/19/2011 Inactive sumatriptan 100 mg tablet RxNorm: 431480 1 Tablet(s) PO at headache onset--repeat in 2hrs if remains No Start Date 07/21/2012 Inactive propranolol 60 mg Tab RxNorm: 925639 1 Tablet(s) PO BID No Start Da te 08/28/2009 Inactive Cholestyramine Light 4 gram Oral Powder RxNorm: 9294351 1 Unit Dose PO QD in water No Start Date 07/21/2012 Inactive nystatin 100,000 unit/g Topical Powder RxNorm: 075301 Applicati on TOP BID No Start Date 07/21/2012 Inactive vitamin O48-wlwrl acid sublingual RxNorm: sublingual No Start Date 07/05/2013 Inactive cyclobenzaprine 5 mg tablet RxNorm: 128697 1/2-1 Tablet (s) PO TID as needed for muscle spasm No Start Date 07/18/2017 Inactive tramadol 50 mg tablet RxNorm: 018583 2 Tablet(s) PO TID as need ed for pain No Start Date 09/01/2014 Inactive aspirin 81 mg Tab RxNorm: 533801 1 Tablet(s) PO QOD No Start Date 04/2013 Inactive Vitamin B12 1000mcg Tablet RxNorm: 1 Tablet(s) PO QD No Start Date 07/18/2017 Inactive cholestyramine (with sugar) 4 gram oral powder RxNorm: 37383 3 1 Unit(s) PO QD as needed No Start Date 05/20/2018 Inactive ProAir HFA 90 mcg/Actuation Aerosol Inhaler RxNorm: 177106 2 Puff(s) INH Q4H prn shortness of breath No Start Date 07/21/2012 Inactive pravastatin 10 mg Tab RxNorm: 768675 1 Tablet(s) PO QD No Start Date 07/21/2012 Inactive gabapentin 800 mg Tab RxNorm: 313032 1 Tablet(s) PO BID No Start Da te 06/03/2011 Inactive Endocet 10 mg-325 mg Tab RxNorm: 5218836 1 Tablet(s) PO TID No Star t Date 06/02/2009 Inactive Naproxen 500 mg Tab RxNorm: 774842 1 Tablet(s) PO BID No Start Date 0 04/05/2010 Inactive Valium 10 mg Tab RxNorm: 018079 1 Tablet(s) PO BID No Start Date 07/04 Inactive enalapril maleate 5 mg Tab RxNorm: 136389 1 Tablet(s) PO QD No Star t Date 11/15/2010 Inactive doxepin 10 mg capsule RxNorm: 0641370 2 Capsule(s) PO QHS No Start Date 09/17/2018 Inactive MS Contin 15 mg Tab RxNorm: 667775 1 Tablet(s) PO BID No Start Date 0 09/18/2010 Inactive buspirone 5 mg tablet RxNorm: 549708 1 Tablet(s) PO TID No Start Da te 12/01/2013 Inactive [place] 3 Fish Oil Cap RxNorm: 1 Capsule(s) PO QD No Start Date 07/03 Inactive enalapril maleate 5 mg Tab RxNorm: 520280 1/2 Tablet(s) PO QD No St art Date 03/07/2011 Inactive Lyrica 75 mg capsule RxNorm: 946303 1 Capsule(s) PO QHS No Start Da te 02/08/2014 Inactive Lopressor 100 mg tablet RxNorm: 762284 1 Tablet(s) PO BID No Start Date 06/08/2018 Inactive Lantus Solostar U-100 Insulin 100 unit/mL (3 mL) subcu taneous pen RxNorm: 358755 45 Unit(s) SQ QAM No Start Date 05/20/2018 Inactive aspirin 81 mg tablet RxNorm: 812586 1 Tablet(s) PO QD No Start Date 0 09/14/2015 Inactive diltiazem CD 240 mg capsule,extended release 24 hr RxNorm: 8 77707 1 Capsule(s) PO QD No Start Date 05/25/2019 Inactive insulin NPH isophane U-100 human subcutaneous RxNorm: 964699 beckwith bcutaneous No Start Date 04/20/2019 Inactive sumatriptan 100 mg tablet RxNorm: 814246 1 Tablet(s) PO at headache onset. May repeat 1 in two hours if headache remains. Max of 2 per 24 hours No Start Date 04/01/2018 Inactive gabapentin 300 mg capsule RxNorm: 883340 1 Capsule(s) PO QHS No Sta rt Date 02/04/2018 Inactive Topamax 25 mg Tab RxNorm: 184202 Oral No Start Date 03/07/2011 In active Senokot-S 8.6 mg-50 mg Tab RxNorm: 8681045 1 Tablet(s) PO QD No Sta rt Date 03/07/2011 Inactive metformin ER 500 mg 24 hr tablet,extended release RxNorm: 18 74638 1 Tablet(s) PO QD No Start Date 05/20/2018 Inactive Symbicort 80 mcg-4.5 mcg/actuation HFA Aerosol Inhaler RxNor m: 9984104 2 Puff(s) INH BID No Start Date 04/05/2013 Inactive metoprolol tartrate 25 mg tablet RxNorm: 484034 1 Tablet(s) PO BID No Start Date 05/20/2019 Inactive propranolol 60 mg Tab RxNorm: 088318 1/2 Tablet(s) PO BID No Start Date 07/21/2012 Inactive metformin ER 500 mg 24 hr tablet,extended release RxNorm: 18 62718 2 Tablet(s) PO QD No Start Date 12/16/2017 Inactive Insulin Syringe 1 mL 29 gauge x 1/2" RxNorm: 2 s yringes daily with insulin Dx: E11.65 No Start Date 10/07/2018 Inactive Amitriptyline 75 mg Tab RxNorm: 654434 1 Tablet(s) PO QHS No Start Date 10/23/2009 Inactive donepezil 10 mg Tab RxNorm: 064514 1 Tablet(s) PO QD No Start Date Inactive Lantus Solostar U-100 Insulin 100 unit/mL (3 mL) subcu taneous pen RxNorm: 186446 36 Unit(s) SQ QAM No Start Date 12/24/2017 Inactive Miacalcin 200 unit/Actuation Nasal [place] Aerosol RxNorm: 261 204 1 [place] NASAL QD Alternate nostrils each day No Start Date 04/05/2010 Inactive Amitriptyline 150 mg Tab RxNorm: 709278 1 Tablet(s) PO QHS No Start Date 01/04/2010 Inactive Bystolic 5 mg tablet RxNorm: 645938 1 Tablet(s) PO QD No Start Date 0 08/13/2012 Inactive Aricept 10 mg Tab RxNorm: 487145 1 Tablet(s) PO QD No Start Date 11/03 Inactive Lantus Solostar U-100 Insulin 100 unit/mL (3 mL) subcu taneous pen RxNorm: 485830 50 Unit(s) SQ QAM No Start Date 08/27/2018 Inactive albuterol sulfate 2.5 mg/3 mL (0.083 %) Neb Solution RxNorm: 796116 1 Unit Dose INH QID as needed No Start Date 08/23/2015 Inactive Symbicort 160 mcg-4.5 mcg/actuation HFA Aerosol Inhaler RxNo rm: 1170303 2 Puff(s) INH BID No Start Date 12/03/2011 Inactive Savella 50 mg Tab RxNorm: 331547 1 Tablet(s) PO BID No Start Date 04/2010 Inactive amitriptyline 100 mg Tab RxNorm: 901153 1 1/2 Tablet(s) PO QHS No S tart Date 06/19/2011 Inactive nystatin 100,000 unit/g Topical Cream RxNorm: 042653 Ap plication TOP BID to rash for 2-4 weeks No Start Date 01/14/2011 Inactive Trelegy Ellipta 100 mcg-62.5 mcg-25 mcg powder for inhalatio n RxNorm: 2819730 1 Puff(s) INH QD No Start Date 12/16/2017 Inactive Lyrica 150 mg capsule RxNorm: 543769 1 Capsule(s) PO QHS No Start D ate 12/04/2015 Inactive sennosides 8.6 mg tablet RxNorm: 680295 1 Tablet(s) PO BID No Start Date 09/07/2018 Inactive metformin ER 500 mg tablet,extended release 24 hr RxNorm: 86 0975 1 Tablet(s) PO QD No Start Date 10/22/2017 Inactive Fish Oil 1,000 mg Cap RxNorm: 1 Capsule(s) PO QD No Start Date 06/2011 Inactive Zyrtec 10 mg Tab RxNorm: 4998398 1 Tablet(s) PO QD No Start Date 07/03 Inactive albuterol sulfate HFA 90 mcg/actuation aerosol inhaler RxNor m: 9080729 2 Puff(s) INH Q4H as needed for cough No Start Date 09/30/2013 Inactive trazodone 150 mg tablet RxNorm: 812139 1 Tablet(s) PO QHS No Start Date 07/21/2012 Inactive Spiriva with HandiHaler 18 mcg & inhalation capsules RxNorm: 690167 1 Capsule(s) INH QD No Start Date 04/05/2013 Inactive Coreg 3.125 mg Tab RxNorm: 152763 1 Tablet(s) PO BID No Start Date Inactive Phenergan 25 mg Tab RxNorm: 133986 Tablet(s) PO PRN MIGRAINE No Sta rt Date 11/21/2009 Inactive Vitamin D 50,000 unit Cap RxNorm: 7062117 1 Capsule(s) PO QW No Sta rt Date 03/07/2011 Inactive Januvia 100 mg tablet RxNorm: 479245 1 Tablet(s) PO QD No Start Date 10/25/2015 Inactive Eliquis 5 mg tablet RxNorm: 9431815 1 Tablet(s) PO BID No Start Date 08/19/2018 Inactive Advair Diskus 500 mcg-50 mcg/Dose for Inhalation RxNorm: 867366 1 INH BID No Start Date 07/21/2012 Inactive Vitamin D3 5,000 unit tablet RxNorm: 337728 1 Tablet(s) PO QD No St art Date 07/18/2017 Inactive Amaryl 2 mg tablet RxNorm: 165716 1 Tablet(s) PO QD No Start Date 06/2015 Inactive Actos 30 mg tablet RxNorm: 168624 1 Tablet(s) PO QD No Start Date Inactive promethazine 25 mg tablet RxNorm: 010277 1 Tablet(s) PO Q4H prn N/V No Start Date 07/21/2012 Inactive ProAir HFA 90 mcg/actuation Aerosol Inhaler RxNorm: 667905 2 Puff(s) INH Q4H prn dyspnea No Start Date 07/21/2012 Inactive Dexilant 60 mg Capsule RxNorm: 003693 1 Capsule(s) PO QD No Start D ate 01/27/2012 Inactive Lantus Solostar U-100 Insulin 100 unit/mL (3 mL) subcu taneous pen RxNorm: 783513 38 Unit(s) SQ QAM No Start Date 05/20/2018 Inactive Valium 10 mg Tab RxNorm: 346927 1 Tablet(s) PO QHS AND PRN No Start Date 10/24/2009 Inactive ZOFRAN ODT 8 mg disintegrating tablet RxNorm: 111756 1 Tablet(s ) PO Q6H No Start [...] Date S ervice Location MICROALBUMIN URINE RANDOM 37602 MICRL MG/L 14.9 MG/L Unknown MICROALBUMIN URINE RANDOM 53793 XM.ALB/CRE 6.1 MG/GCR Unknown MICROALBUMIN URINE RANDOM 21532 CREAT MG/D 243 MG/DL Unknown MICROALBUMIN URINE RANDOM 89979 CRE/100 2.43 G/L 03/05 Unknown PROTEIN/CREAT URINE WITH RATIO 68830|54072 PROT R U 14 MG/D L 04/01/2014 Unknown PROTEIN/CREAT URINE WITH RATIO 60332|61061 CREAT R U 254 MG/ DL 04/01/2014 Unknown PROTEIN/CREAT URINE WITH RATIO 24514|12087 XRATIO P/C 55 MG/ G 04/01/2014 Unknown URINALYSIS 71379 PROTEIN UR NEG 04/28/2010 Unknown URINALYSIS 54692 HEMGLBN UR NEG 04/28/2010 Unknown URINALYSIS 76380 GLUCOSE UR NEG 04/28/2010 Unknown URINALYSIS 25121 KETONES UR NEG 04/28/2010 Unknown URINALYSIS 19079 PH U 5.5 04/28/2010 Unknown URINALYSIS 18739 SP GR U 1.025 04/28/2010 Unknown URINALYSIS 35483 BILRUBN UR NEG 04/28/2010 Unknown URINALYSIS 34200 LEUKO UR 2+ 04/28/2010 Unknown URINALYSIS 63213 NITRITE UR NEG 04/28/2010 Unknown MICR CUL? [id number] WBC/HPF 6-10 04/28/2010 Unknown MICR CUL? [id number] RBC/HPF 0-5 04/28/2010 Unknown MICR CUL? [id number] HYAL CAST 16-25 04/28/2010 Unknown MICR CUL? [id number] SP TO YOLIE? NO 04/28/2010 Unknown MICR CUL? [id number] APPEAR UR NORMAL 04/28/2010 Unknown MICR CUL? [id number] SQ EPI/LPF FEW 04/28/2010 Unknown Procedures Procedure Codes Date URINALYSIS NONAUTO W/O SCOPE CPT-4: 90116 04/16/2019 URINE CULTURE/ COLONY COUNT CPT-4: 60952 04/16/2019 CEFTRIAXONE SODIUM INJECTION CPT-4: J0696 04/16/2019 THER/PROPH/DIAG INJ SC/IM CPT-4: 70260 04/16/2019 DRAIN/INJECT JOINT/BURSA CPT-4: 17866 01/22/2019 TRIAMCINOLONE ACET INJ NOS CPT-4: J3301 01/22/2019 DEXAMETHASONE SODIUM PHOS CPT-4: J1100 01/22/2019 URINE CULTURE/ COLONY COUNT CPT-4: 50794 01/07/2019 URINALYSIS NONAUTO W/O SCOPE CPT-4: 40014 01/07/2019 CEFTRIAXONE SODIUM INJECTION CPT-4: J0696 01/07/2019 THER/PROPH/DIAG INJ SC/IM CPT-4: 87765 01/07/2019 FLU VACC PRSV FREE INC ANTIG 65 AND OLDER CPT-4: 90007 12/24/2018 FLU VACC PRSV FREE INC ANTIG 65 AND OLDER CPT-4: 71200 12/24/2018 ADMIN INFLUENZA VIRUS VAC CPT-4: G0008 12/24/2018 THER/PROPH/DIAG INJ SC/IM CPT-4: 10947 11/04/2018 KETOROLAC TROMETHAMINE INJ CPT-4: J1885 11/04/2018 PROMETHAZINE HCL INJECTION CPT-4: J2550 11/04/2018 PPPS, subseq visit CPT-4: G0439 09/18/2018 THER/PROPH/DIAG INJ SC/IM CPT-4: 68029 04/01/2018 KETOROLAC TROMETHAMINE INJ CPT-4: J1885 04/01/2018 PROMETHAZINE HCL INJECTION CPT-4: J2550 04/01/2018 URINE CULTURE/ COLONY COUNT CPT-4: 20670 03/17/2018 URINALYSIS NONAUTO W/O SCOPE CPT-4: 38366 03/17/2018 FLU VACC PRSV FREE INC ANTIG 65 AND OLDER CPT-4: 61791 12/17/2017 PNEUMOCOCCAL VACC 23 RANDALL IM CPT-4: 56221 12/17/2017 ADMIN INFLUENZA VIRUS VAC CPT-4: G0008 12/17/2017 ADMIN PNEUMOCOCCAL VACCINE CPT-4: G0009 12/17/2017 PPPS, subseq visit CPT-4: G0439 09/17/2017 THER/PROPH/DIAG INJ SC/IM CPT-4: 64134 08/26/2017 KETOROLAC TROMETHAMINE INJ CPT-4: J1885 08/26/2017 PROMETHAZINE HCL INJECTION CPT-4: J2550 08/26/2017 URINALYSIS NONAUTO W/O SCOPE CPT-4: 08847 07/19/2017 URINE CULTURE/ COLONY COUNT CPT-4: 14708 07/19/2017 CEFTRIAXONE SODIUM INJECTION CPT-4: J0696 07/19/2017 THER/PROPH/DIAG INJ SC/IM CPT-4: 14969 07/19/2017 THER/PROPH/DIAG INJ SC/IM CPT-4: 49610 07/19/2017 TRIAMCINOLONE ACET INJ NOS CPT-4: J3301 07/19/2017 PRESCRIP TRANSMIT VIA ERX SY CPT-4: G8553 05/07/2017 PRESCRIP TRANSMIT VIA ERX SY CPT-4: G8553 02/22/2017 PRESCRIP TRANSMIT VIA ERX SY CPT-4: G8553 01/23/2017 FLU VACC PRSV FREE INC ANTIG 65 AND OLDER CPT-4: 71873 12/20/2016 PNEUMOCOCCAL VACC 13 RANDALL IM CPT-4: 05032 12/20/2016 ADMIN INFLUENZA VIRUS VAC CPT-4: G0008 12/20/2016 ADMIN PNEUMOCOCCAL VACCINE CPT-4: G0009 12/20/2016 URINALYSIS NONAUTO W/O SCOPE CPT-4: 69743 10/08/2016 URINE CULTURE/ COLONY COUNT CPT-4: 25885 10/08/2016 PRESCRIP TRANSMIT VIA ERX SY CPT-4: G8553 10/08/2016 PRESCRIP TRANSMIT VIA ERX SY CPT-4: G8553 09/19/2016 PRESCRIP TRANSMIT VIA ERX SY CPT-4: G8553 08/20/2016 PRESCRIP TRANSMIT VIA ERX SY CPT-4: G8553 02/29/2016 KETOROLAC TROMETHAMINE INJ CPT-4: J1885 02/02/2016 THER/PROPH/DIAG INJ SC/IM CPT-4: 13649 02/02/2016 PROMETHAZINE HCL INJECTION CPT-4: J2550 02/02/2016 PRESCRIP TRANSMIT VIA ERX SY CPT-4: G8553 02/02/2016 FLU VACC PRSV FREE INC ANTIG 65 AND OLDER CPT-4: 44201 01/05/2016 PPPS, subseq visit CPT-4: G0439 01/05/2016 ADMIN INFLUENZA VIRUS VAC CPT-4: G0008 01/05/2016 URINE CULTURE/ COLONY COUNT CPT-4: 64602 12/05/2015 URINALYSIS NONAUTO W/O SCOPE CPT-4: 59504 12/05/2015 PRESCRIP TRANSMIT VIA ERX SY CPT-4: G8553 12/05/2015 PRESCRIP TRANSMIT VIA ERX SY CPT-4: G8553 10/26/2015 URINALYSIS NONAUTO W/O SCOPE CPT-4: 98632 10/05/2015 URINE CULTURE/ COLONY COUNT CPT-4: 90822 10/05/2015 PRESCRIP TRANSMIT VIA ERX SY CPT-4: G8553 10/05/2015 SERVICE REQUIRED FOR PMD CPT-4: G0372 09/15/2015 PRESCRIP TRANSMIT VIA ERX SY CPT-4: G8553 09/15/2015 SPECIAL REPORTS OR FORMS CPT-4: 64505 08/25/2015 PRESCRIP TRANSMIT VIA ERX SY CPT-4: G8553 07/05/2015 URINALYSIS NONAUTO W/O SCOPE CPT-4: 37967 03/30/2015 ASSAY, GLUCOSE, BLOOD QUANT CPT-4: 61145 03/30/2015 URINE CULTURE/ COLONY COUNT CPT-4: 37452 03/30/2015 PRESCRIP TRANSMIT VIA ERX SY CPT-4: G8553 03/30/2015 PRESCRIP TRANSMIT VIA ERX SY CPT-4: G8553 02/03/2015 FLU VACC PRSV FREE INC ANTIG 65 AND OLDER CPT-4: 14748 12/29/2014 ADMIN INFLUENZA VIRUS VAC CPT-4: G0008 12/29/2014 PRESCRIP TRANSMIT VIA ERX SY CPT-4: G8553 12/29/2014 PRESCRIP TRANSMIT VIA ERX SY CPT-4: G8553 09/02/2014 PROTEIN/CREAT URINE WITH RATIO CPT-4: 57333|28935 5 MICROALBUMIN QUANTITATIVE CPT-4: 76082 04/01/2014 PRESCRIP TRANSMIT VIA ERX SY CPT-4: G8553 03/16/2014 PRESCRIP TRANSMIT VIA ERX SY CPT-4: G8553 03/09/2014 THER/PROPH/DIAG INJ SC/IM CPT-4: 62121 03/01/2014 TRIAMCINOLONE ACET INJ NOS CPT-4: J3301 03/01/2014 PRESCRIP TRANSMIT VIA ERX SY CPT-4: G8553 02/09/2014 URINE CULTURE/ COLONY COUNT CPT-4: 96470 10/30/2013 URINALYSIS NONAUTO W/O SCOPE CPT-4: 02369 10/21/2013 URINE CULTURE/ COLONY COUNT CPT-4: 13914 10/21/2013 DESTRUCT PREMALG LESION (Cryosurgery) CPT-4: 91435 PRESCRIP TRANSMIT VIA ERX SY CPT-4: G8553 10/05/2013 URINALYSIS NONAUTO W/O SCOPE CPT-4: 79995 08/04/2013 URINE CULTURE/ COLONY COUNT CPT-4: 09738 08/04/2013 PRESCRIP TRANSMIT VIA ERX SY CPT-4: G8553 08/04/2013 THER/PROPH/DIAG INJ SC/IM CPT-4: 93537 07/13/2013 TRIAMCINOLONE ACET INJ NOS CPT-4: J3301 07/13/2013 PRESCRIP TRANSMIT VIA ERX SY CPT-4: G8553 05/27/2013 URINALYSIS NONAUTO W/O SCOPE CPT-4: 34812 05/25/2013 URINE CULTURE/ COLONY COUNT CPT-4: 40309 05/25/2013 THER/PROPH/DIAG INJ SC/IM CPT-4: 81273 05/04/2013 VITAMIN B12 INJECTION CPT-4: J3420 05/04/2013 THER/PROPH/DIAG INJ SC/IM CPT-4: 51857 04/17/2013 VITAMIN B12 INJECTION CPT-4: J3420 04/17/2013 THER/PROPH/DIAG INJ SC/IM CPT-4: 94678 04/17/2013 METHYLPREDNISOLONE 40 MG INJ CPT-4: J1030 04/17/2013 TRIAMCINOLONE ACET INJ NOS CPT-4: J3301 04/17/2013 URINALYSIS NONAUTO W/O SCOPE CPT-4: 05551 04/06/2013 URINE CULTURE/ COLONY COUNT CPT-4: 50903 04/06/2013 PRESCRIP TRANSMIT VIA ERX SY CPT-4: G8553 04/06/2013 KETOROLAC TROMETHAMINE INJ CPT-4: J1885 06/25/2012 PROMETHAZINE HCL INJECTION CPT-4: J2550 06/25/2012 THER/PROPH/DIAG INJ SC/IM CPT-4: 36678 06/25/2012 THER/PROPH/DIAG INJ SC/IM CPT-4: 48433 06/24/2012 METHYLPREDNISOLONE 40 MG INJ CPT-4: J1030 06/24/2012 TRIAMCINOLONE ACET INJ NOS CPT-4: J3301 06/24/2012 URINE CULTURE/ COLONY COUNT CPT-4: 68086 06/24/2012 THER/PROPH/DIAG INJ SC/IM CPT-4: 46975 05/20/2012 KETOROLAC TROMETHAMINE INJ CPT-4: J1885 05/20/2012 THER/PROPH/DIAG INJ SC/IM CPT-4: 11939 05/20/2012 PROMETHAZINE HCL INJECTION CPT-4: J2550 05/20/2012 DRAIN/INJECT JOINT/BURSA CPT-4: 50842 02/13/2012 METHYLPREDNISOLONE 40 MG INJ CPT-4: J1030 02/13/2012 TRIAMCINOLONE ACET INJ NOS CPT-4: J3301 02/13/2012 THER/PROPH/DIAG INJ SC/IM CPT-4: 10327 11/14/2011 METHYLPREDNISOLONE 40 MG INJ CPT-4: J1030 11/14/2011 TRIAMCINOLONE ACET INJ NOS CPT-4: J3301 11/14/2011 THER/PROPH/DIAG INJ SC/IM CPT-4: 17181 09/12/2011 KETOROLAC TROMETHAMINE INJ CPT-4: J1885 09/12/2011 THER/PROPH/DIAG INJ SC/IM CPT-4: 26230 08/09/2011 METHYLPREDNISOLONE 40 MG INJ CPT-4: J1030 08/09/2011 TRIAMCINOLONE ACET INJ NOS CPT-4: J3301 08/09/2011 URINE CULTURE/ COLONY COUNT CPT-4: 14560 07/03/2011 URINE CULTURE/ COLONY COUNT CPT-4: 33769 06/04/2011 THER/PROPH/DIAG INJ SC/IM CPT-4: 06889 05/03/2011 METHYLPREDNISOLONE 40 MG INJ CPT-4: J1030 05/03/2011 TRIAMCINOLONE ACET INJ NOS CPT-4: J3301 05/03/2011 URINALYSIS NONAUTO W/O SCOPE CPT-4: 24057 01/24/2011 URINE CULTURE/ COLONY COUNT CPT-4: 68625 01/24/2011 FLUZONE, 5ML (Medicare) CPT-4: Q2038 01/02/2011 ADMIN INFLUENZA VIRUS VAC CPT-4: G0008 01/02/2011 ASSAY, GLUCOSE, BLOOD QUANT CPT-4: 42650 12/07/2010 URINE CULTURE/ COLONY COUNT CPT-4: 89481 11/02/2010 THER/PROPH/DIAG INJ SC/IM CPT-4: 21178 10/18/2010 METHYLPREDNISOLONE 40 MG INJ CPT-4: J1030 10/18/2010 TRIAMCINOLONE ACET INJ NOS CPT-4: J3301 10/18/2010 TRIAMCINOLONE ACET INJ NOS CPT-4: J3301 05/11/2010 METHYLPREDNISOLONE 40 MG INJ CPT-4: J1030 05/11/2010 THER/PROPH/DIAG INJ SC/IM CPT-4: 64472 05/11/2010 TRIAMCINOLONE ACET INJ NOS CPT-4: J3301 02/09/2010 METHYLPREDNISOLONE 40 MG INJ CPT-4: J1030 02/09/2010 THER/PROPH/DIAG INJ SC/IM CPT-4: 48168 02/09/2010 SERVICE REQUIRED FOR PMD CPT-4: G0372 02/09/2010 FLU VACCINE 3 YRS & > IM UP 64 CPT-4: 95726 0 PNEUMOCOCCAL VACC 23 RANDALL IM CPT-4: 88244 12/07/2009 ADMIN INFLUENZA VIRUS VAC CPT-4: G0008 12/07/2009 ADMIN PNEUMOCOCCAL VACCINE CPT-4: G0009 12/07/2009 TRIAMCINOLONE ACET INJ NOS CPT-4: J3301 05/26/2009 THER/PROPH/DIAG INJ SC/IM CPT-4: 56270 05/26/2009 METHYLPREDNISOLONE 80 MG INJ CPT-4: J1040 [...] 1: 114/72 Code: 8480-6 BMI: 37.8 Code: 18331-2 Heart Rate 1: 72 bpm Height: 5'3" [...] 1: 106/68 Code: 8480-6 BMI: 35.7 Code: 81791-1 Heart Rate 1: 72 bpm Height: 5'4" Respiratory Rate: 20 bpm SpO2: 98% Tempera ture: 36.7 (C) / 98.0 (F) Weight: 208 lbs 04/16/2018 Blood Pressure 1: 132/82 Code: 8480-6 BMI: 37.9 Code: 61340-6 Heart Rate 1: 72 bpm Height: 5'4" Respiratory Rate: 20 bpm SpO2: 96% Tempera ture: 37.1 (C) / 98.8 (F) Weight: 221 lbs 04/01/2018 Blood Pressure 1: 150/90 Code: 8480-6 Heart Rate 1: 72 bpm Respiratory Rate: 22 bpm SpO2: 95% Temperature: 36.4 (C) / 97.6 (F) We ight: 216 lbs 03/06/2018 Blood Pressure 1: 126/78 Code: 8480-6 BMI: 37.4 Code: 05416-7 Heart Rate 1: 68 bpm Height: 5'4" [...] ight: 222 lbs 12/25/2017 BMI: 37.8 Code: 88276-1 Heart Rate 1: 76 bpm Height: 5 '4" Respiratory Rate: 20 bpm SpO2: 96% Temperature: 37.3 (C) / 99.2 (F) Weight: 220 lbs 12/17/2017 Blood Pressure 1: 132/78 Code: 8480-6 BMI: 37.2 Code: 68082-3 Heart Rate 1: 88 bpm Height: 5'4" Respiratory Rate: 20 bpm SpO2: 96% Tempera ture: 37.3 (C) / 99.2 (F) Weight: 217 lbs 10/30/2017 Blood Pressure 1: 114/68 Code: 8480-6 BMI: 36.4 Code: 43663-5 Heart Rate 1: 72 bpm Height: 5'4" Respiratory Rate: 22 bpm SpO2: 96% Tempera ture: 36.8 (C) / 98.2 (F) Weight: 212 lbs 10/23/2017 Blood Pressure 1: 124/78 Code: 8480-6 Heart Rate 1: 72 bpm Respiratory Rate: 24 bpm SpO2: 94% Temperature: 36.6 (C) / 97.9 (F) We ight: 212 lbs 09/17/2017 Blood Pressure 1: 128/82 Code: 8480-6 BMI: 37.4 Code: 27415-5 Heart Rate 1: 72 bpm Height: 5'4" Respiratory Rate: 20 bpm SpO2: 96% Tempera ture: 37.0 (C) / 98.6 (F) Weight: 218 lbs 07/19/2017 Blood Pressure 1: 136/84 Code: 8480-6 BMI: 36.6 Code: 42941-7 Heart Rate 1: 88 bpm Height: 5'4" Respiratory Rate: 20 bpm SpO2: 97% Tempera ture: 36.7 (C) / 98.0 (F) Weight: 213 lbs 05/29/2017 Blood Pressure 1: 136/82 Code: 8480-6 BMI: 36.7 Code: 21125-1 Heart Rate 1: 72 bpm Height: 5'4" Respiratory Rate: 20 bpm SpO2: 97% Tempera ture: 36.9 (C) / 98.4 (F) Weight: 214 lbs 05/07/2017 Blood Pressure 1: 122/80 Code: 8480-6 BMI: 37.1 Code: 92551-9 Heart Rate 1: 80 bpm Height: 5'4" Respiratory Rate: 24 bpm SpO2: 96% Tempera ture: 36.1 (C) / 97.0 (F) Weight: 216 lbs 03/18/2017 BMI: 36.7 Code: 40610-3 Heart Rate 1: 80 bpm Height: 5 '4" Respiratory Rate: 22 bpm SpO2: 95% Temperature: 36.9 (C) / 98.4 (F) Weight: 214 lbs 02/27/2017 Blood Pressure 1: 146/94 Code: 8480-6 BMI: 36.6 Code: 31759-7 Heart Rate 1: 76 bpm Height: 5'4" Respiratory Rate: 22 bpm SpO2: 97% Tempera ture: 36.6 (C) / 97.9 (F) Weight: 213 lbs 02/22/2017 Blood Pressure 1: 126/90 Code: 8480-6 BMI: 36.4 Code: 20709-5 Heart Rate 1: 84 bpm Height: 5'4" Respiratory Rate: 22 bpm SpO2: 95% Tempera ture: 36.9 (C) / 98.4 (F) Weight: 212 lbs 01/23/2017 Blood Pressure 1: 146/82 Code: 8480-6 BMI: 37.6 Code: 58993-1 Heart Rate 1: 96 bpm Height: 5'4" Respiratory Rate: 20 bpm SpO2: 96% Tempera ture: 36.9 (C) / 98.4 (F) Weight: 219 lbs 12/20/2016 Blood Pressure 1: 126/70 Code: 8480-6 BMI: 37.2 Code: 51472-3 Heart Rate 1: 76 bpm Height: 5'4" Respiratory Rate: 22 bpm SpO2: 95% Tempera ture: 36.6 (C) / 97.8 (F) Weight: 217 lbs 10/08/2016 Blood Pressure 1: 128/82 Code: 8480-6 BMI: 36.9 Code: 68563-7 Heart Rate 1: 76 bpm Height: 5'4" Respiratory Rate: 20 bpm SpO2: 95% Tempera ture: 37.0 (C) / 98.6 (F) Weight: 215 lbs 09/19/2016 Blood Pressure 1: 144/78 Code: 8480-6 BMI: 37.8 Code: 48670-5 Heart Rate 1: 76 bpm Height: 5'4" Respiratory Rate: 22 bpm SpO2: 95% Tempera ture: 37.0 (C) / 98.6 (F) Weight: 220 lbs 08/20/2016 Blood Pressure 1: 140/86 Code: 8480-6 BMI: 37.4 Code: 58775-6 Heart Rate 1: 80 bpm Height: 5'4" Respiratory Rate: 20 bpm SpO2: 95% Tempera ture: 36.9 (C) / 98.4 (F) Weight: 218 lbs 06/19/2016 Blood Pressure 1: 124 Code: 8480-6 BMI: 37.8 Code: 21679-8 Heart Rate 1: 74 bpm Height: 5'4" Respiratory Rate: 24 bpm SpO2: 96% Tempera ture: 36.9 (C) / 98.4 (F) Weight: 220 lbs 06/04/2016 Blood Pressure 1: 124 Code: 8480-6 BMI: 38.8 Code: 77254-1 Heart Rate 1: 72 bpm Height: 5'4" Respiratory Rate: 24 bpm SpO2: 95% Tempera ture: 36.8 (C) / 98.2 (F) Weight: 226 lbs 05/02/2016 Blood Pressure 1: 136/90 Code: 8480-6 BMI: 37.6 Code: 38027-9 Heart Rate 1: 72 bpm Height: 5'4" Respiratory Rate: 24 bpm SpO2: 96% Tempera ture: 36.9 (C) / 98.4 (F) Weight: 219 lbs 04/03/2016 Blood Pressure 1: 126/78 Code: 8480-6 BMI: 38.1 Code: 16158-8 Heart Rate 1: 72 bpm Height: 5'4" Respiratory Rate: 22 bpm SpO2: 94% Tempera ture: 36.9 (C) / 98.4 (F) Weight: 222 lbs 02/29/2016 Blood Pressure 1: 132/78 Code: 8480-6 Heart Rate 1: 78 bpm Height: Respiratory Rate: 24 bpm SpO2: 95% Temperature: 36.4 (C) / 97.6 (F) We ight: 02/02/2016 Blood Pressure 1: 12478 Code: 8480-6 BMI: 37.6 Code: 75904-8 Heart Rate 1: 76 bpm Height: 5'4" Respiratory Rate: 20 bpm SpO2: 95% Tempera ture: 36.8 (C) / 98.2 (F) Weight: 219 lbs 01/05/2016 Blood Pressure 1: 126/70 Code: 8480-6 BMI: 37.1 Code: 35319-3 Heart Rate 1: 76 bpm Height: 5'4" Respiratory Rate: 20 bpm Temperature: 36 .6 (C) / 97.8 (F) Weight: 216 lbs 12/05/2015 Blood Pressure 1: 126/72 Code: 8480-6 BMI: 36.9 Code: 69671-8 Heart Rate 1: 92 bpm Height: 5'4" Respiratory Rate: 20 bpm Temperature: 36 .7 (C) / 98.1 (F) Weight: 215 lbs 10/26/2015 Blood Pressure 1: 142/80 Code: 8480-6 BMI: 36.4 Code: 16397-3 Heart Rate 1: 82 bpm Height: 5'4" Respiratory Rate: 24 bpm SpO2: 92% Tempera ture: 35.9 (C) / 96.7 (F) Weight: 212 lbs 10/05/2015 Blood Pressure 1: 136/82 Code: 8480-6 Heart Rate 1: 80 bpm Respiratory Rate: 18 bpm SpO2: 98% Temperature: 35.7 (C) / 96.3 (F) We ight: 214 lbs 09/15/2015 Blood Pressure 1: 116/80 Code: 8480-6 BMI: 34.6 Code: 11481-6 Heart Rate 1: 76 bpm Height: 5'6" Respiratory Rate: 20 bpm Temperature: 36 .6 (C) / 97.9 (F) Weight: 211 lbs 08/24/2015 Blood Pressure 1: 124/80 Code: 8480-6 BMI: 34.1 Code: 74288-0 Heart Rate 1: 68 bpm Height: 5'6" Respiratory Rate: 20 bpm Temperature: 36 .8 (C) / 98.3 (F) Weight: 208 lbs 07/05/2015 Blood Pressure 1: 114/78 Code: 8480-6 BMI: 33.9 Code: 34776-7 Heart Rate 1: 80 bpm Height: 5'6" Respiratory Rate: 20 bpm Temperature: 36 .6 (C) / 97.9 (F) Weight: 207 lbs 06/06/2015 Blood Pressure 1: 122/78 Code: 8480-6 BMI: 34.1 Code: 66252-5 Heart Rate 1: 76 bpm Height: 5'6" Respiratory Rate: 24 bpm SpO2: 96% Tempera ture: 36.4 (C) / 97.6 (F) Weight: 208 lbs 05/23/2015 Blood Pressure 1: 124/78 Code: 8480-6 Heart Rate 1: 76 bpm Respiratory Rate: 24 bpm SpO2: 93% Temperature: 36.8 (C) / 98.2 (F) We ight: 212 lbs 05/05/2015 Blood Pressure 1: 136/80 Code: 8480-6 BMI: 35.4 Code: 17106-6 Heart Rate 1: 76 bpm Height: 5'6" Respiratory Rate: 28 bpm Temperature: 37 .0 (C) / 98.6 (F) Weight: 216 lbs 03/30/2015 Blood Pressure 1: 132/86 Code: 8480-6 BMI: 35.2 Code: 30965-8 Heart Rate 1: 84 bpm Height: 5'6" Respiratory Rate: 24 bpm Temperature: 36 .7 (C) / 98.0 (F) Weight: 215 lbs 02/03/2015 Blood Pressure 1: 122/74 Code: 8480-6 BMI: 35.7 Code: 92257-3 Heart Rate 1: 84 bpm Height: 5'6" Respiratory Rate: 20 bpm Temperature: 36 .9 (C) / 98.5 (F) Weight: 218 lbs 12/29/2014 Blood Pressure 1: 132/80 Code: 8480-6 BMI: 35.1 Code: 30289-4 Heart Rate 1: 80 bpm Height: 5'6" Respiratory Rate: 20 bpm Temperature: 36 .6 (C) / 97.8 (F) Weight: 214 lbs 09/02/2014 Blood Pressure 1: 128/92 Code: 8480-6 BMI: 34.7 Code: 79961-7 Heart Rate 1: 84 bpm Height: 5'6" Respiratory Rate: 26 bpm Temperature: 36 .8 (C) / 98.2 (F) Weight: 212 lbs 08/25/2014 Blood Pressure 1: 124/80 Code: 8480-6 BMI: 34.7 Code: 54912-8 Heart Rate 1: 78 bpm Height: 5'6" Respiratory Rate: 22 bpm SpO2: 97% Tempera ture: 36.6 (C) / 97.8 (F) Weight: 212 lbs 04/01/2014 Blood Pressure 1: 142/84 Code: 8480-6 BMI: 34.4 Code: 29075-7 Heart Rate 1: 74 bpm Height: 5'5" Respiratory Rate: 20 bpm Temperature: 36 .4 (C) / 97.6 (F) Weight: 207 lbs 03/16/2014 Blood Pressure 1: 142/90 Code: 8480-6 BMI: 34.6 Code: 02382-5 Heart Rate 1: 76 bpm Height: 5'5" Respiratory Rate: 24 bpm Temperature: 36 .5 (C) / 97.7 (F) Weight: 208 lbs 03/09/2014 Blood Pressure 1: 116/70 Code: 8480-6 BMI: 35.3 Code: 75751-2 Heart Rate 1: 72 bpm Height: 5'5" [...] 1: 128/86 Code: 8480-6 BMI: 34.3 Code: 59166-9 Heart Rate 1: 84 bpm Height: 5'5" Respiratory Rate: 20 bpm Temperature: 36 .7 (C) / 98.0 (F) Weight: 206 lbs 12/23/2013 Blood Pressure 1: 122/70 Code: 8480-6 BMI: 34.3 Code: 28776-7 Heart Rate 1: 68 bpm Height: 5'5" Respiratory Rate: 20 bpm Temperature: 36 .8 (C) / 98.2 (F) Weight: 206 lbs 10/05/2013 Blood Pressure 1: 118/76 Code: 8480-6 BMI: 34.1 Code: 51306-7 Heart Rate 1: 68 bpm Height: 5'5" Respiratory Rate: 20 bpm SpO2: 98% Tempera ture: 36.6 (C) / 97.9 (F) Weight: 205 lbs 08/04/2013 Blood Pressure 1: 126/82 Code: 8480-6 BMI: 33.3 Code: 79318-2 Heart Rate 1: 76 bpm Height: 5'5" Respiratory Rate: 20 bpm Temperature: 36 .8 (C) / 98.2 (F) Weight: 200 lbs 07/03/2013 Blood Pressure 1: 124/82 Code: 8480-6 BMI: 33.3 Code: 04119-9 Heart Rate 1: 72 bpm Height: 5'5" Respiratory Rate: 22 bpm Temperature: 36 .1 (C) / 97.0 (F) Weight: 200 lbs 05/27/2013 Blood Pressure 1: 126 Code: 8480-6 Heart Rate 1: 74 bpm Respiratory Rate: 20 bpm Temperature: 36.0 (C) / 96.8 (F) Weight: 199 lbs 04/06/2013 Blood Pressure 1: 118/80 Code: 8480-6 BMI: 35.2 Code: 48644-8 Heart Rate 1: 80 bpm Height: 5'4" Respiratory Rate: 20 bpm Temperature: 37 .4 (C) / 99.3 (F) Weight: 205 lbs 11/10/2012 Blood Pressure 1: 128/82 Code: 8480-6 Heart Rate 1: 84 bpm Respiratory Rate: 20 bpm Temperature: 36.7 (C) / 98.0 (F) Weight: 199 lbs 09/02/2012 Blood Pressure 1: 116/82 Code: 8480-6 BMI: 34.2 Code: 83843-0 Heart Rate 1: 88 bpm Height: 5'4" Respiratory Rate: 22 bpm Temperature: 36 .6 (C) / 97.8 (F) Weight: 199 lbs 08/04/2012 Blood Pressure 1: 128/74 Code: 8480-6 BMI: 34.0 Code: 16384-9 Heart Rate 1: 92 bpm Height: 5'4" Respiratory Rate: 20 bpm Temperature: 36 .4 (C) / 97.5 (F) Weight: 198 lbs 07/21/2012 Blood Pressure 1: 124/86 Code: 8480-6 Heart Rate 1: 116 bpm Respiratory Rate: 24 bpm Temperature: 36.8 (C) / 98.2 (F) 07/02/2012 Blood Pressure 1: 116/88 Code: 8480-6 BMI: 33.6 Code: 03248-6 Heart Rate 1: 76 bpm Height: 5'4" Respiratory Rate: 20 bpm Temperature: 36 .8 (C) / 98.3 (F) Weight: 196 lbs 06/24/2012 Blood Pressure 1: 124/80 Code: 8480-6 BMI: 34.3 Code: 07199-2 Heart Rate 1: 72 bpm Height: 5'4" SpO2: 96% Temperature: 36.3 (C) / 97.3 (F) Weight: 200 lbs 05/20/2012 Blood Pressure 1: 11688 Code: 8480-6 BMI: 33.8 Code: 14332-9 Heart Rate 1: 80 bpm Height: 5'4" Respiratory Rate: 22 bpm Temperature: 36 .9 (C) / 98.4 (F) Weight: 197 lbs 05/08/2012 Blood Pressure 1: 128/86 Code: 8480-6 BMI: 33.8 Code: 02316-8 Heart Rate 1: 76 bpm Height: 5'4" Respiratory Rate: 26 bpm SpO2: 95% Tempera ture: 36.1 (C) / 97.0 (F) Weight: 197 lbs 04/22/2012 Blood Pressure 1: 106/64 Code: 8480-6 BMI: 33.8 Code: 89105-0 Heart Rate 1: 70 bpm Height: 5'4" Temperature: 36.1 (C) / 97.0 (F) Weight: 197 lbs 02/13/2012 Blood Pressure 1: 126/82 Code: 8480-6 BMI: 34.7 Code: 13326-8 Heart Rate 1: 64 bpm Height: 5'4" Respiratory Rate: 20 bpm Temperature: 36 .6 (C) / 97.8 (F) Weight: 202 lbs 01/28/2012 Blood Pressure 1: 116/80 Code: 8480-6 BMI: 34.7 Code: 98680-2 Heart Rate 1: 76 bpm Height: 5'4" Respiratory Rate: 20 bpm Temperature: 36 .8 (C) / 98.3 (F) Weight: 202 lbs 12/26/2011 Blood Pressure 1: 132/82 Code: 8480-6 BMI: 36.0 Code: 34448-0 Heart Rate 1: 68 bpm Height: 5'4" Respiratory Rate: 22 bpm Temperature: 36 .7 (C) / 98.0 (F) Weight: 210 lbs 11/14/2011 Blood Pressure 1: 124/80 Code: 8480-6 BMI: 36.4 Code: 12968-4 Heart Rate 1: 76 bpm Height: 5'4" Respiratory Rate: 20 bpm Temperature: 36 .8 (C) / 98.2 (F) Weight: 212 lbs 09/12/2011 Blood Pressure 1: 108/74 Code: 8480-6 BMI: 37.1 Code: 87543-6 Heart Rate 1: 72 bpm Height: 5'4" Respiratory Rate: 20 bpm Temperature: 37 .0 (C) / 98.6 (F) Weight: 216 lbs 08/15/2011 Blood Pressure 1: 122/80 Code: 8480-6 BMI: 36.9 Code: 24572-8 Heart Rate 1: 76 bpm Height: 5'4" Respiratory Rate: 20 bpm Temperature: 36 .2 (C) / 97.1 (F) Weight: 215 lbs 08/09/2011 Blood Pressure 1: 112/78 Code: 8480-6 BMI: 36.9 Code: 63206-7 Heart Rate 1: 68 bpm Height: 5'4" Respiratory Rate: 20 bpm Temperature: 36 .7 (C) / 98.0 (F) Weight: 215 lbs 07/03/2011 Blood Pressure 1: 140/94 Code: 8480-6 BMI: 36.2 Code: 56984-3 Heart Rate 1: 68 bpm Height: 5'4" Temperature: 36.0 (C) / 96.8 (F) Weight: 211 lbs 06/04/2011 Blood Pressure 1: 124/70 Code: 8480-6 BMI: 36.7 Code: 43765-5 Heart Rate 1: 68 bpm Height: 5'4" Respiratory Rate: 20 bpm Temperature: 36 .6 (C) / 97.9 (F) Weight: 214 lbs 05/03/2011 Blood Pressure 1: 130/76 Code: 8480-6 BMI: 36.4 Code: 57056-0 Heart Rate 1: 74 bpm Height: 5'5" Temperature: 36.2 (C) / 97.2 (F) Weight: 219 lbs 04/05/2011 Blood Pressure 1: 124/86 Code: 8480-6 BMI: 35.9 Code: 45388-8 Heart Rate 1: 76 bpm Height: 5'6" Respiratory Rate: 22 bpm Temperature: 36 .3 (C) / 97.3 (F) Weight: 219 lbs 03/08/2011 Blood Pressure 1: 112/78 Code: 8480-6 BMI: 35.1 Code: 86488-9 Heart Rate 1: 80 bpm Height: 5'6" Respiratory Rate: 26 bpm Temperature: 36 .9 (C) / 98.4 (F) Weight: 214 lbs 01/24/2011 Blood Pressure 1: 110/82 Code: 8480-6 BMI: 35.6 Code: 31876-4 Heart Rate 1: 80 bpm Height: 5'6" Temperature: 36.1 (C) / 97.0 (F) Weight: 217 lbs 01/02/2011 Blood Pressure 1: 106/72 Code: 8480-6 BMI: 35.6 Code: 69168-8 Heart Rate 1: 76 bpm Height: 5'6" [...] 1: 120/74 Code: 8480-6 BMI: 35.9 Code: 74945-0 Heart Rate 1: 72 bpm Height: 5'5" Temperature: 36.3 (C) / 97.4 (F) Weight: 216 lbs 09/19/2010 Blood Pressure 1: 124/80 Code: 8480-6 BMI: 35.4 Code: 47546-5 Heart Rate 1: 76 bpm Height: 5'5" [...] 1: 122/78 Code: 8480-6 BMI: 37.4 Code: 32294-1 Heart Rate 1: 84 bpm Height: 5'5" [...] 10/30/2017 follow up 10/23/2017 Hospital fwup from [facility] Annual Checkup 09/17/2017 Wellness Physical fo r [...] 10/26/2015 ER visit from at [facility] for COPD Exacerbation follow up 10/05/2015 ER Visit gait abnormality 09/15/2015 Patient requesting kelly pineda paperwork to be filled out disturbances of thinking 08/24/2015 follow up 07/05/2015 4wk fwup follow up 06/06/[address] [facility] cough 05/23/2015 follow up 05/05/2015 dyspnea 03/30/2015 [facility] needs new orde r for O2 abdominal pain 02/03/2015 cyst 12/29/2014 vs abscess follow up 09/02/[address] [facility] headache 08/25/2014 facial drooping follow up 04/01/2014 ER follow up 03/16/2014 1wk fwup follow up 03/09/2014 1mo fwup and bronchi tis fwup follow up 03/03/2014 2 day follow up 03/01/2014 ER follow up 02/09/2014 [facility] gastroesophageal reflux 12/23/2013 painful urination 10/30/2013 UTI [...] up 08/04/2012 2wk fwup follow up 07/21/2012 [facility] sore throat 07/02/2012 headache 06/25/2012 request [...] up 10/18/[address] Medrano last w [place], having increased allergy symptoms. Would like steroid [...] 1 month f/u follow up 12/07/2009 from [facility], done with PT--finished about 2wks ago follow up 11/08/2009 2wk fwup follow up 10/24/2009 hosp fwup ~generic 07/25/2009 bilateral earlobe re dness/swelling, pain radiating into neck, refill Demerol ~generic 05/26/2009 FALLING A LOT, SAVEL LA NOT HELPING FIBROMYALGIA PAIN, LT HAND LACERATION-FELL INTO NAIL 05/25/09 Encounters Encounter Performer Location Codes Date ([id number]) OFFICE/OUTPATIENT VISIT EST Diagnosis: Acute bronchitis[ICD10: J20.9] Diagnosis: Colitis[ICD10: K52.9] Belia REID [facility] CPT-4: 89834 06/16/2019 ([id number]) OFFICE/OUTPATIENT VISIT EST Diagnosis: Diarrhea[ICD10: R19.7] Diagnosis: Abdominal bloating[ICD10: R14.0] Belia Reid [facility] CPT- 4: 44841 06/08/2019 ([id number]) OFFICE/OUTPATIENT VISIT EST Diagnosis: Acute febrile illness[ICD10: R50.9] Diagnosis: Colitis[ICD10: K52.9] Belia Reid [facility] CPT-4: 99730 05/26/2019 ([id number]) OFFICE/OUTPATIENT VISIT EST Diagnosis: Chronic obstructive pulmonary disease, unspecified[ICD10: J44.9] Diagnosis: Pulmonary fibrosis[ICD10: J84.10] Diagnosis: Intermittent stridor[ICD10: R06.1] Diagnosis: Muscle weakness[ICD10: M62.81] Belia REID [facility] CPT-4: 55739 05/13/2019 ([id number]) OFFICE/OUTPATIENT VISIT EST Diagnosis: Stridor[ICD10: R06.1] Diagnosis: COUGH[ICD10: R05] Belia REID [facility] CPT-4: 20751 05/06/2019 ([id number]) OFFICE/OUTPATIENT VISIT EST Diagnosis: Stridor[ICD10: R06.1] Diagnosis: Muscle, jerky movements (uncontrolled)[ICD10: G25.5] Belia REID DO [facility] CPT-4: 09422 04/29/2019 ([id number]) OFFICE/OUTPATIENT VISIT EST Diagnosis: Upper respiratory infection[ICD10: J06.9] Diagnosis: Flank pain[ICD10: R10.9] Diagnosis: Weight gain[ICD10: R63.5] Pattie AMBRIZ [facility] CPT-4: 70307 04/16/2019 ([id number]) OFFICE/OUTPATIENT VISIT EST Diagnosis: Generalized pruritus[ICD10: L29.9] Belia REID [facility] CPT-4: 74416 04/08/2019 ([id number]) OFFICE/OUTPATIENT VISIT EST Diagnosis: Acute bursitis of left shoulder[ICD10: M75.52] Diagnosis: Cervicalgia[ICD10: M54.2] Diagnosis: Chest wall pain[ICD10: R07.89] Belia REID [facility] CPT-4: 12911 01/22/2019 ([id number]) OFFICE/OUTPATIENT VISIT EST Diagnosis: Abdominal pain[ICD10: R10.9] Diagnosis: Pyelonephritis[ICD10: N12] Pattie DOMINGUEZ [facility] CPT-4: 04354 01/07/2019 ([id number]) OFFICE/OUTPATIENT VISIT EST Diagnosis: Low back pain[ICD10: M54.5] Diagnosis: Left lumbar radiculopathy[ICD10: M54.16] Diagnosis: Left flank pain[ICD10: R10.9] Diagnosis: Left lower quadrant pain[ICD10: R10.32] Diagnosis: FLU VACCINE[ICD10: Z23] Belia FREDERICK [facility] CPT-4: 47269 12/24/2018 ([id number]) OFFICE/OUTPATIENT VISIT EST Diagnosis: Migraine, unspecified, not intractable, without status migrainosus[ICD10: G43.909] Diagnosis: Fibromyalgia[ICD10: M79.7] Belia DOMINGUEZ [facility] CPT-4: 14943 11/20/2018 ([id number]) OFFICE/OUTPATIENT VISIT EST Diagnosis: Migraine, unspecified, intractable, without status migrainosus[ICD10: G43.919] Diagnosis: Acute sinusitis, unspecified[ICD10: J01.90] Pattie REID [facility] CPT-4: 26795 11/04/2018 ([id number]) OFFICE/OUTPATIENT VISIT EST Diagnosis: Pain in left wrist[ICD10: M25.532] Diagnosis: Other dorsalgia[ICD10: M54.89] Pattie REID [employer] [employer] CPT-4: 88268 09/08/2018 ([id number]) OFFICE/OUTPATIENT VISIT EST Diagnosis: Acute stress reaction[ICD10: F43.0] Diagnosis: Pruritus, unspecified[ICD10: L29.9] 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, 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] Belia REID DO [facility] CPT-4: 74126 08/20/2018 ([id number]) OFFICE/OUTPATIENT VISIT EST Diagnosis: Hypotension due to drugs[ICD10: I95.2] Diagnosis: Paroxysmal atrial fibrillation[ICD10: I48.0] Diagnosis: Localized edema[ICD10: R60.0] Belia REID DO [facility] CPT-4: 39707 06/19/2018 ([id number]) OFFICE/OUTPATIENT VISIT EST Diagnosis: Generalized hyperhidrosis[ICD10: R61] Diagnosis: Essential (primary) hypertension[ICD10: I10] Diagnosis: Supraventricular tachycardia[ICD10: I47.1] Belia REID [employer] [facility] CPT-4: 71398 06/09/2018 ([id number]) OFFICE/OUTPATIENT VISIT EST Diagnosis: Stridor[ICD10: R06.1] Diagnosis: Dependence on supplemental oxygen[ICD10: Z99.81] Diagnosis: Weakness[ICD10: R53.1] Diagnosis: Supraventricular tachycardia[ICD10: I47.1] Belia REID DO [facility] CPT-4: 79844 05/21/2018 ([id number]) OFFICE/OUTPATIENT VISIT EST Diagnosis: Cervical disc disorder with radiculopathy, unspecified cervical region[ICD10: M50.10] Belia REID DO [facility] CPT-4: 77120 04/16/2018 ([id number]) OFFICE/OUTPATIENT VISIT EST Diagnosis: Migraine, unspecified, intractable, without status migrainosus[ICD10: G43.919] Diagnosis: Fibromyalgia[ICD10: M79.7] Pattie DAILEYER [employer] [facility] CPT-4: 05562 04/01/2018 ([id number]) NURSE/OUTPATIENT VISIT EST Diagnosis: Hematuria, unspecified[ICD10: R31.9] Diagnosis: Dysuria[ICD10: R30.0] Belia REID DO [facility] CPT-4: 72921 03/17/2018 ([id number]) OFFICE/OUTPATIENT VISIT EST Diagnosis: Erythema intertrigo[ICD10: L30.4] Diagnosis: Chronic obstructive pulmonary disease with (acute) exacerbation[ICD10: J44.1] Diagnosis: Type 2 diabetes mellitus with hyperglycemia[ICD10: E11.65] Belia REID DO [facility] CPT-4: 29260 03/06/2018 ([id number]) OFFICE/OUTPATIENT VISIT EST Diagnosis: Cervicalgia[ICD10: M54.2] Pattie AMBRIZ [facility] CPT-4: 04560 02/05/2018 ([id number]) OFFICE/OUTPATIENT VISIT EST Diagnosis: Candidiasis of skin and nail[ICD10: B37.2] Diagnosis: Cervicalgia[ICD10: M54.2] Pattie AMBRIZ [facility] CPT-4: 35837 01/20/2018 ([id number]) OFFICE/OUTPATIENT VISIT EST Diagnosis: Pain in thoracic spine[ICD10: M54.6] Diagnosis: Radiculopathy, thoracic region[ICD10: M54.14] Belia REID DO [facility] CPT-4: 78840 12/25/2017 ([id number]) OFFICE/OUTPATIENT VISIT EST Diagnosis: Pain in thoracic spine[ICD10: M54.6] Diagnosis: Other muscle spasm[ICD10: M62.838] Diagnosis: FLU VACCINE[ICD10: Z23] Diagnosis: PNEUMOCOCCAL VACCINE[ICD10: Z23] Belia REID DO [facility] CPT-4: 34437 12/17/2017 ([id number]) OFFICE/OUTPATIENT VISIT EST Diagnosis: Chronic obstructive pulmonary disease with (acute) exacerbation[ICD10: J44.1] Belia REID DO [facility] CPT- 4: 19294 10/30/2017 ([id number]) OFFICE/OUTPATIENT VISIT EST Diagnosis: Chronic obstructive pulmonary disease with acute lower respiratory infection[ICD10: J44.0] Diagnosis: Mild intermittent asthma with (acute) exacerbation[ICD10: J45.21] Belia REID DO [facility] CPT-4: 41576 10/23/2017 ([id number]) NURSE/OUTPATIENT VISIT EST Diagnosis: Migraine, unspecified, not intractable, without status migrainosus[ICD10: G43.909] Belia REID DO [facility] CPT - 4: 58820 08/26/2017 ([id number]) OFFICE/OUTPATIENT VISIT EST Diagnosis: Urinary tract infection, site not specified[ICD10: N39.0] Diagnosis: Encounter for screening for osteoporosis[ICD10: Z13.820] Diagnosis: Encounter for screening mammogram for malignant neoplasm of breast[ICD10: Z12.31] Diagnosis: Acute bronchitis, unspecified[ICD10: J20.9] Pattie REID DO [facility] CPT-4: 39267 07/19/2017 ([id number]) OFFICE/OUTPATIENT VISIT EST Diagnosis: Rash and other nonspecific skin eruption[ICD10: R21] Pattie REID DO [facility] CPT-4: 56621 05/29/2017 ([id number]) OFFICE/OUTPATIENT VISIT EST Diagnosis: Diarrhea, unspecified[ICD10: R19.7] Diagnosis: Tinea corporis[ICD10: B35.4] Diagnosis: Tinea cruris[ICD10: B35.6] Diagnosis: Migraine, unspecified, not intractable, without status migrainosus[ICD10: G43.909] Belia REID [facility] CPT - 4: 00417 05/07/2017 ([id number]) OFFICE/OUTPATIENT VISIT EST Diagnosis: Stridor[ICD10: R06.1] Diagnosis: Chronic obstructive pulmonary disease with (acute) exacerbation[ICD10: J44.1] Belia REID [facility] CPT- 4: 07030 03/18/2017 ([id number]) OFFICE/OUTPATIENT VISIT EST Diagnosis: Type 2 diabetes mellitus with hyperglycemia[ICD10: E11.65] Belia REID [facility] CPT-4: 81186 02/27/2017 OFFICE/OUTPATIENT VISIT EST Diagnosis: Type 2 diabetes mellitus with hyperglycemia[ICD10: E11.65] Pattie REID DO [facility] CPT-4: 92527 02/22/2017 ([id number]) OFFICE/OUTPATIENT VISIT EST Diagnosis: Urinary tract infection, site not specified[ICD10: N39.0] Diagnosis: Pneumonia, unspecified organism[ICD10: J18.9] Diagnosis: Type 2 diabetes mellitus with hyperglycemia[ICD10: E11.65] Belia REID DO [facility] CPT-4: 98003 01/23/2017 ([id number]) OFFICE/OUTPATIENT VISIT EST Diagnosis: Type 2 diabetes mellitus with hyperglycemia[ICD10: E11.65] Diagnosis: Localized edema[ICD10: R60.0] Diagnosis: PNEUMOCOCCAL VACCINE[ICD10: Z23] Diagnosis: FLU VACCINE[ICD10: Z23] Belia FREDERICK [facility] CPT-4: 75888 12/20/2016 OFFICE/OUTPATIENT VISIT EST Diagnosis: Pain in thoracic spine[ICD10: M54.6] Diagnosis: Low back pain[ICD10: M54.5] Diagnosis: Cervicalgia[ICD10: M54.2] Diagnosis: Cough[ICD10: R05] Celeste Ferreira BELIA REID [facility] CPT-4: 08921 10/08/2016 ([id number]) OFFICE/OUTPATIENT VISIT EST Diagnosis: Primary insomnia[ICD10: F51.01] Diagnosis: Migraine, unspecified, not intractable, without status migrainosus[ICD10: G43.909] Diagnosis: Type 2 diabetes mellitus with hyperglycemia[ICD10: E11.65] Belia REID DO [facility] CPT-4: 14590 09/19/2016 ([id number]) OFFICE/OUTPATIENT VISIT EST Diagnosis: Migraine, unspecified, not intractable, without status migrainosus[ICD10: G43.909] Diagnosis: Generalized abdominal pain[ICD10: R10.84] Diagnosis: Cough[ICD10: R05] Belia Franklin REID [facility] CPT-4: 68369 08/20/2016 ([id number]) OFFICE/OUTPATIENT VISIT EST Diagnosis: Chronic obstructive pulmonary disease, unspecified[ICD10: J44.9] Diagnosis: Stridor[ICD10: R06.1] Belia REID DO [facility] CPT-4: 68109 06/19/2016 ([id number]) OFFICE/OUTPATIENT VISIT EST Diagnosis: Chronic obstructive pulmonary disease, unspecified[ICD10: J44.9] Diagnosis: Personal history of urinary (tract) infections[ICD10: Z87.440] Belia REID DO [facility] CPT-4: 89857 06/04/2016 ([id number]) OFFICE/OUTPATIENT VISIT EST Diagnosis: Stridor[ICD10: R06.1] Diagnosis: Chronic obstructive pulmonary disease with acute lower respiratory infection[ICD10: J44.0] Diagnosis: Other specified diseases of intestine[ICD10: K63.89] Diagnosis: Cystitis, unspecified without hematuria[ICD10: N30.90] Belia REID DO [facility] CPT-4: 58953 05/02/2016 ([id number]) OFFICE/OUTPATIENT VISIT EST Diagnosis: Fibromyalgia[ICD10: M79.7] Diagnosis: Urinary tract infection, site not specified[ICD10: N39.0] Belia REID DO [facility] CPT-4: 05820 04/03/2016 ([id number]) OFFICE/OUTPATIENT VISIT EST Diagnosis: Unspecified asthma, uncomplicated[ICD10: J45.909] Diagnosis: Cough[ICD10: R05] Lidia REID DO [facility] T-4: 51515 02/29/2016 ([id number]) OFFICE/OUTPATIENT VISIT EST Diagnosis: Migraine, unspecified, intractable, without status migrainosus[ICD10: G43.919] Diagnosis: Urinary tract infection, site not specified[ICD10: N39.0] Belia REID DO [facility] CPT-4: 71271 02/02/2016 ([id number]) OFFICE/OUTPATIENT VISIT EST Diagnosis: Urinary tract infection, site not specified[ICD10: N39.0] Diagnosis: Unspecified abdominal pain[ICD10: R10.9] Diagnosis: Pain in thoracic spine[ICD10: M54.6] Diagnosis: Type 2 diabetes mellitus with diabetic neuropathic arthropathy[ICD10: E11.610] Belia Franklin CORNELLLINE Yuridia REID [facility] CPT-4: 97563 12/05/2015 ([id number]) OFFICE/OUTPATIENT VISIT EST Diagnosis: Chronic obstructive pulmonary disease with (acute) exacerbation[ICD10: J44.1] Diagnosis: Migraine, unspecified, not intractable, without status migrainosus[ICD10: G43.909] Lidia CORNELLLINE Yuridia REID [facility] CPT -4: 15084 10/26/2015 ([id number]) OFFICE/OUTPATIENT VISIT EST Diagnosis: Hematuria, unspecified[ICD10: R31.9] Diagnosis: Urinary tract infection, site not specified[ICD10: N39.0] Lidia HSUQUELINE BushraMayda FRANKLIN [facility] CPT-4: 41009 10/05/2015 OFFICE/OUTPATIENT VISIT EST Diagnosis: Chronic obstructive pulmonary disease, unspecified[ICD10: J44.9] Diagnosis: Muscle weakness (generalized)[ICD10: M62.81] Diagnosis: Polyneuropathy, unspecified[ICD10: G62.9] Diagnosis: Other intervertebral disc degeneration, 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] Diagnosis: Fibromyalgia[ICD10: M79.7] Belia Franklin HSUQUELINE Yuridia DOMINGUEZ [facility] CPT-4: 03004 09/15/2015 ([id number]) OFFICE/OUTPATIENT VISIT EST Diagnosis: Disorientation, unspecified[ICD10: R41.0] Diagnosis: Headache[ICD10: R51] Diagnosis: Paresthesia of skin[ICD10: R20.2] Lidia CORNELLHERNANDEZ Paredes Yuridia REID [facility] CPT-4: 30294 08/24/2015 ([id number]) OFFICE/OUTPATIENT VISIT EST Diagnosis: Type 2 diabetes mellitus with hyperglycemia[ICD10: E11.65] Diagnosis: Chronic obstructive pulmonary disease with acute lower respiratory infection[ICD10: J44.0] Belia Franklin HSUQUELINE BushraMayda FRANKLIN [facility] CPT-4: 88949 07/05/2015 ([id number]) OFFICE/OUTPATIENT VISIT EST Diagnosis: Mild intermittent asthma with (acute) exacerbation[ICD10: J45.21] Diagnosis: Chronic obstructive pulmonary disease, unspecified[ICD10: J44.9] Belia REID DO [facility] CPT-4: 45071 06/06/2015 ([id number]) OFFICE/OUTPATIENT VISIT EST Diagnosis: Chronic obstructive pulmonary disease with (acute) exacerbation[ICD10: J44.1] Lidia REID DO [facility] CPT- 4: 71194 05/23/2015 ([id number]) OFFICE/OUTPATIENT VISIT EST Diagnosis: Type 2 diabetes mellitus with hyperglycemia[ICD10: E11.65] Diagnosis: Functional dyspepsia[ICD10: K30] Belia REID DO [facility] CPT-4: 97758 05/05/2015 ([id number]) OFFICE/OUTPATIENT VISIT EST Diagnosis: Type 2 diabetes mellitus with hyperglycemia[ICD10: E11.65] Diagnosis: Glycosuria[ICD10: R81] Diagnosis: Urinary tract infection, site not specified[ICD10: N39.0] Belia REID [facility] CPT-4: 55115 03/30/2015 ([id number]) OFFICE/OUTPATIENT VISIT EST Diagnosis: Generalized abdominal pain[ICD10: R10.84] Diagnosis: Diarrhea, unspecified[ICD10: R19.7] Diagnosis: Urinary tract infection, site not specified[ICD10: N39.0] Diagnosis: Gastro-esophageal reflux disease without esophagitis[ICD10: K21.9] Belia REID [facility] CPT-4: 61446 02/03/2015 ([id number]) OFFICE/OUTPATIENT VISIT EST Diagnosis: Other specified noninflammatory disorders of vagina[ICD10: N89.8] Diagnosis: Follicular disorder, unspecified[ICD10: L73.9] Diagnosis: Functional dyspepsia[ICD10: K30] Diagnosis: FLU VACCINE[ICD10: Z23] Belia FREDERICK [facility] CPT-4: 49360 12/29/2014 ([id number]) OFFICE/OUTPATIENT VISIT EST 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 75507 09/02/2014 ([id number]) OFFICE/OUTPATIENT VISIT EST Diagnosis: Cervical radiculopathy[ICD9: 723.4] Diagnosis: Cervicalgia[ICD9: 723.1] Diagnosis: Degenerative disc disease, cervical[ICD9: 722.4] 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I[ICD9: 250.00] [facility]: 70272 04/01/2014 OFFICE/OUTPATIENT VISIT EST Diagnosis: Reactive airway disease[ICD9: 493.90] Belia REID [facility] CPT-4: 55775 03/16/2014 ([id number]) OFFICE/OUTPATIENT VISIT EST Diagnosis: BRONCHITIS, ACUTE[ICD9: 466.0] Diagnosis: Reactive airway disease[ICD9: 493.90] Belia REID [facility] CPT-4: 56282 03/09/2014 OFFICE/OUTPATIENT VISIT EST Diagnosis: BRONCHITIS, ACUTE[ICD9: 466.0] Diagnosis: WHEEZING[ICD9: 786.07] Huong Peguero [facility] CPT-4: 53728 03/03/2014 OFFICE/OUTPATIENT VISIT EST Diagnosis: BRONCHITIS, ACUTE[ICD9: 466.0] Diagnosis: WHEEZING[ICD9: 786.07] Huong Peguero [facility] CPT-4: 39270 03/01/2014 ([id number]) OFFICE/OUTPATIENT VISIT EST Diagnosis: GERD[ICD9: 530.81] Diagnosis: ARTHRALGIA-MULTIPLE SITES[ICD9: 719.49] Diagnosis: LUMB/LUMBOSAC DISC DEGEN[ICD9: 722.52] Diagnosis: - I - FIBROMYALGIA[ICD9: 729.1] Belia REID [facility] CPT-4: 86178 02/09/2014 ([id number]) OFFICE/OUTPATIENT VISIT EST Diagnosis: Peptic ulcer disease[ICD9: 533.90] Diagnosis: RESTLESS LEGS SYNDROME[ICD9: 333.94] Diagnosis: Neuropathy[ICD9: 355.9] Belia FREDERICK DO [facility] CPT-4: 38465 12/23/2013 ([id number]) OFFICE/OUTPATIENT VISIT EST Diagnosis: URINARY TRACT INFECTION[ICD9: 599.0] Belia REID DO [facility] CPT-4: 36138 10/30/2013 ([id number]) OFFICE/OUTPATIENT VISIT EST Diagnosis: Flank pain[ICD9: 789.00] Belia MARTINEZ [facility] CPT-4: 29342 10/21/2013 ([id number]) OFFICE/OUTPATIENT VISIT EST Diagnosis: INFLAMED SEBORR KERATOS[ICD9: 702.11] Diagnosis: Brachioradial pruritus[ICD9: 698.9] Diagnosis: ASTHMA NOS[ICD9: 493.90] Belia MARTINEZ [facility] CPT-4: 74051 10/05/2013 ([id number]) OFFICE/OUTPATIENT VISIT EST Diagnosis: HYPERTENSION[ICD9: 401.9] Diagnosis: - I - FIBROMYALGIA[ICD9: 729.1] Diagnosis: DIZZINESS/VERTIGO[ICD9: 780.4] Diagnosis: MIGRAINE NOS/NOT INTRCBL[ICD9: 346.90] Diagnosis: Diabetic peripheral neuropathy[ICD9: 250.60] Diagnosis: Flank pain[ICD9: 789.00] Belia MARTINEZ [facility] CPT-4: 24268 08/04/2013 ([id number]) OFFICE/OUTPATIENT VISIT EST Diagnosis: ALLERGIC RHINITIS[ICD9: 477.9] Belia REID DO [facility] CPT-4: 72965 07/13/2013 OFFICE/OUTPATIENT VISIT EST Diagnosis: URINARY TRACT INFECTION[ICD9: 599.0] Huong Osborne KRAIG REID DO [facility] CPT-4: 93522 07/03/2013 OFFICE/OUTPATIENT VISIT EST Diagnosis: HYPERTENSION[ICD9: 401.9] Diagnosis: URINARY TRACT INFECTION[ICD9: 599.0] Diagnosis: BACKACHE[ICD9: 724.5] Diagnosis: URINARY INCONTINENCE[ICD9: 788.30] Huong [place] CORNELLKIMI MARIE Yuridia REID [facility] CPT-4: 24453 05/27/2013 ([id number]) OFFICE/OUTPATIENT VISIT EST Diagnosis: Flank pain[ICD9: 789.00] Belia Oreisabellaannie HSUBELIA BushraMayda KIESHA POOLE [facility] CPT-4: 51911 05/25/2013 ([id number]) OFFICE/OUTPATIENT VISIT EST Diagnosis: B-COMPLEX DEFIC NEC[ICD9: 266.2] Belia Yandelnilson BELIA Yuridia REID [facility] CPT-4: 21399 05/04/2013 ([id number]) OFFICE/OUTPATIENT VISIT EST Diagnosis: ALLERGIC RHINITIS[ICD9: 477.9] Diagnosis: Vitamin B12 deficiency[ICD9: 266.2] Belia Yandelnilson THOMPSON [facility]idia [facility]: 85156 04/17/2013 ([id number]) OFFICE/OUTPATIENT VISIT EST 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I[ICD9: 250.00] Diagnosis: URINARY TRACT INFECTION[ICD9: 599.0] Diagnosis: DIZZINESS/VERTIGO[ICD9: 780.4] Diagnosis: DIARRHEA[ICD9: 787.91] Belia Yandelnilson BRUNSON BushraMayda RALF Peguero [facility] CPT-4: 74836 04/06/2013 ([id number]) OFFICE/OUTPATIENT VISIT EST Diagnosis: URINARY TRACT INFECTION[ICD9: 599.0] Diagnosis: URINARY RETENTION[ICD9: 788.20] Belia Yandelnilson BRUNSON BushraMayda FRANKLIN [facility] CPT-4: 46302 11/10/2012 ([id number]) OFFICE/OUTPATIENT VISIT EST Diagnosis: TACHYCARDIA[ICD9: 785.0] Diagnosis: SYNCOPE AND COLLAPSE[ICD9: 780.2] Diagnosis: CONSCIOUSNS ALTERAT NEC[ICD9: 780.09] Belia CALVO BushraMayda FRANKLIN [facility] CPT-4: 58102 09/02/2012 OFFICE/OUTPATIENT VISIT EST Diagnosis: TACHYCARDIA[ICD9: 785.0] Diagnosis: SYNCOPE AND COLLAPSE[ICD9: 780.2] Beliahanna REID DO [facility] CPT-4: 50850 08/04/2012 ([id number]) OFFICE/OUTPATIENT VISIT EST Diagnosis: Loss of consciousness[ICD9: 780.09] Diagnosis: Tachycardia[ICD9: 785.0] Diagnosis: MALAISE AND FATIGUE[ICD9: 780.79] Belia REID [facility] CPT-4: 51395 07/21/2012 ([id number]) OFFICE/OUTPATIENT VISIT EST Diagnosis: BRONCHITIS, ACUTE[ICD9: 466.0] Diagnosis: ASTHMA NOS[ICD9: 493.90] Belia POOLE [facility] CPT-4: 27044 07/02/2012 ([id number]) OFFICE/OUTPATIENT VISIT EST Diagnosis: CEPHALGIA[ICD9: 784.0] Belia Peguero [facility] CPT-4: 03501 06/25/2012 ([id number]) OFFICE/OUTPATIENT VISIT EST Diagnosis: GERD[ICD9: 530.81] Diagnosis: DIARRHEA[ICD9: 787.91] Diagnosis: URINARY TRACT INFECTION[ICD9: 599.0] Diagnosis: ASTHMA NOS[ICD9: 493.90] Diagnosis: ALLERGIC RHINITIS[ICD9: 477.9] Belia REID [facility] CPT-4: 38922 06/24/2012 ([id number]) OFFICE/OUTPATIENT VISIT EST Diagnosis: MIGRAINE NOS/NOT INTRCBL[ICD9: 346.90] Diagnosis: TREMOR NEC[ICD9: 333.1] Diagnosis: CHRONIC PAIN SYNDROME[ICD9: 338.4] Belia BASS MARIE Yuridia REID [facility] CPT-4: 53548 05/20/2012 ([id number]) OFFICE/OUTPATIENT VISIT EST Diagnosis: DIZZINESS/VERTIGO[ICD9: 780.4] Diagnosis: PALPITATIONS[ICD9: 785.1] Diagnosis: TREMOR NEC[ICD9: 333.1] Diagnosis: ANXIETY STATE NOS[ICD9: 300.00] Diagnosis: POSTTRAUMATIC STRESS DISORDER[ICD9: 309.81] Belia REID [facility] CPT-4: 68275 05/08/2012 ([id number]) OFFICE/OUTPATIENT VISIT EST Diagnosis: MIGRAINE NOS/NOT INTRCBL[ICD9: 346.90] Diagnosis: FIBROMYALGIA[ICD9: 729.1] Diagnosis: SYNCOPE AND COLLAPSE[ICD9: 780.2] Diagnosis: Diabetic peripheral neuropathy[ICD9: 250.60] Belia TomlinsonMayda FRANKLIN [employer] CPT-4: 31727 04/22/2012 OFFICE/OUTPATIENT VISIT EST Diagnosis: ROTATOR CUFF DIS NEC[ICD9: 726.19] Diagnosis: JOINT PAIN-SHLDER[ICD9: 719.41] Diagnosis: DYSPEPSIA[ICD9: 536.8] Belia CORNELLLINE BushraMayda RALF [facility] [employer] CPT-4: 65031 02/13/2012 ([id number]) OFFICE/OUTPATIENT VISIT EST Diagnosis: MIGRAINE NOS/NOT INTRCBL[ICD9: 346.90] Diagnosis: GERD[ICD9: 530.81] Diagnosis: DYSPEPSIA[ICD9: 536.8] Belia CORNELLLINE BushraMayda RALF [facility] [employer] CPT-4: 68421 01/28/2012 OFFICE/OUTPATIENT VISIT EST Diagnosis: CEPHALGIA[ICD9: 784.0] Diagnosis: MIGRAINE NOS/NOT INTRCBL[ICD9: 346.90] Diagnosis: GERD[ICD9: 530.81] Diagnosis: INSOMNIA NOS[ICD9: 780.52] Belia HSUQUELINE BushraMayda RAND DOMINGUEZ [facility] CPT-4: 30139 12/26/2011 ([id number]) OFFICE/OUTPATIENT VISIT EST Diagnosis: CEPHALGIA[ICD9: 784.0] Diagnosis: MIGRAINE NOS/NOT INTRCBL[ICD9: 346.90] Diagnosis: MALAISE AND FATIGUE[ICD9: 780.79] Diagnosis: FIBROMYALGIA[ICD9: 729.1] Diagnosis: ALLERGIC RHINITIS[ICD9: 477.9] Belia CORNELLLINE Bushra Mayda FRANKLIN [employer] CPT-4: 16362 11/14/2011 ([id number]) OFFICE/OUTPATIENT VISIT EST Diagnosis: MALAISE AND FATIGUE[ICD9: 780.79] Diagnosis: MUSCLE WEAKNESS-GENERAL[ICD9: 728.87] Diagnosis: MIGRAINE NOS/NOT INTRCBL[ICD9: 346.90] Diagnosis: JOINT PAIN-SHLDER[ICD9: 719.41] Belia REID [facility] CPT-4: 75341 09/12/2011 ([id number]) OFFICE/OUTPATIENT VISIT EST Diagnosis: CONCUSSION[ICD9: 850.9] Diagnosis: Ataxia[ICD9: 781.3] Diagnosis: DIZZINESS/VERTIGO[ICD9: 780.4] Belia REID [facility] CPT-4: 61316 08/15/2011 ([id number]) OFFICE/OUTPATIENT VISIT EST Diagnosis: THROMBOPHLEBITIS[ICD9: 451.9] Diagnosis: Subacromial bursitis[ICD9: 726.19] Diagnosis: ALLERGIC RHINITIS[ICD9: 477.9] Diagnosis: Lipoma[ICD9: 214.9] [facility] 23893 08/09/2011 ([id number]) OFFICE/OUTPATIENT VISIT EST Diagnosis: THROMBOPHLEBITIS[ICD9: 451.9] Diagnosis: Arm pain[ICD9: 729.5] Diagnosis: Clostridium difficile colitis[ICD9: 008.45] Diagnosis: URINARY TRACT INFECTION[ICD9: 599.0] [facility]: 45520 07/03/2011 ([id number]) OFFICE/OUTPATIENT VISIT EST Diagnosis: ARTHRALGIA-MULTIPLE SITES[ICD9: 719.49] Diagnosis: Muscle cramp[ICD9: 729.82] Diagnosis: INSOMNIA NOS[ICD9: 780.52] [facility]: 97272 06/04/2011 OFFICE/OUTPATIENT VISIT EST Diagnosis: Headache[ICD9: 784.0] Diagnosis: Allergic rhinitis[ICD9: 477.9] [facility]: 71929 05/03/2011 OFFICE/OUTPATIENT VISIT EST Diagnosis: LUMB/LUMBOSAC DISC DEGEN[ICD9: 722.52] Diagnosis: MIGRAINE NOS/NOT INTRCBL[ICD9: 346.90] Diagnosis: CHRONIC PAIN SYNDROME[ICD9: 338.4] Diagnosis: RESTLESS LEGS SYNDROME[ICD9: 333.94] Belia REID [facility] CPT-4: 84299 04/05/2011 OFFICE/OUTPATIENT VISIT EST Diagnosis: MIGRAINE NOS/NOT INTRCBL[ICD9: 346.90] Diagnosis: GERD[ICD9: 530.81] Belia REID [facility] CPT-4: 93357 03/08/2011 OFFICE/OUTPATIENT VISIT EST Diagnosis: URINARY TRACT INFECTION[ICD9: 599.0] Diagnosis: Vertigo[ICD9: 780.4] Diagnosis: GERD[ICD9: 530.81] Belia REID [facility] CPT-4: 20031 01/24/2011 OFFICE/OUTPATIENT VISIT EST Diagnosis: Hypotension[ICD9: 458.9] Diagnosis: Syncopal episodes[ICD9: 780.2] Diagnosis: MIGRAINE NOS/NOT INTRCBL[ICD9: 346.90] Diagnosis: MALAISE AND FATIGUE[ICD9: 780.79] Belia Humphriesisabellaannie HSUKOFFIHERNANDEZ [facility]: 76372 01/02/2011 OFFICE/OUTPATIENT VISIT EST Diagnosis: Tinea cruris[ICD9: 110.3] Diagnosis: Intertrigo[ICD9: 695.89] Diagnosis: MIGRAINE NOS/NOT INTRCBL[ICD9: 346.90] Belia Yandelisabellaannie HSUQ [facility]PT-[facility]: 79025 12/07/2010 OFFICE/OUTPATIENT VISIT EST Diagnosis: PALPITATIONS[ICD9: 785.1] Diagnosis: ANXIETY STATE NOS[ICD9: 300.00] [facility]: 11573 11/16/2010 OFFICE/OUTPATIENT VISIT EST Diagnosis: URINARY TRACT INFECTION[ICD9: 599.0] Diagnosis: MIGRAINE NOS/NOT INTRCBL[ICD9: 346.90] Iraida CASILLAS [facility]: 04947 11/02/2010 OFFICE/OUTPATIENT VISIT EST Diagnosis: ALLERGIC RHINITIS[ICD9: 477.9] Diagnosis: ANXIETY STATE NOS[ICD9: 300.00] Belia [facility] CPT-4: 94100 10/18/2010 OFFICE/OUTPATIENT VISIT EST Belia [facility] CPT- 4: 77115 09/19/2010 OFFICE/OUTPATIENT VISIT EST Belia BRUNSON SMayda [facility] CPT- 4: 72098 09/06/2010 ([id number]) OFFICE/OUTPATIENT VISIT EST Belia CASILLAS U[facility] CPT-4: 98973 08/10/2010 ([id number]) OFFICE/OUTPATIENT VISIT EST Belia CASILLAS [facility] CPT-4: 50163 05/11/2010 ([id number]) OFFICE/OUTPATIENT VISIT, EST Belia MEJIALINE [facility] CPT-4: 43940 04/06/2010 ([id number]) OFFICE/OUTPATIENT VISIT, EST Belia HSU QUELINE [facility] CPT-4: 62527 02/09/2010 ([id number]) OFFICE/OUTPATIENT VISIT, EST Belia HSU [facility] CPT-4: 57820 01/05/2010 ([id number]) OFFICE/OUTPATIENT VISIT, EST Belia HSU [facility] CPT-4: 97086 12/07/2009 ([id number]) OFFICE/OUTPATIENT VISIT, EST Belia HSU [facility] CPT-4: 95032 11/08/2009 ([id number]) OFFICE/OUTPATIENT VISIT, EST Belia HSU [facility]INE [facility] CPT-4: 36868 10/24/2009 ([id number]) OFFICE/OUTPATIENT VISIT, EST Belia HSU [facility] CPT-4: 82356 07/25/2009 ([id number]) OFFICE/OUTPATIENT VISIT, EST Belia HSU [facility] CPT-4: 96024 05/26/2009 Plan of Care Planned Activity Notes Codes Status Date Visit Diagnosis Plan: Acute bronchitis Discussion: Cov er with levaquin Increase SVNs with albuterol to QID Has oxygen using q HS routinely and prn To ER if oxygen levels drop or worsening respiratory symptoms ICD-9 : 466.0 ICD-10 : J20.9 06/16/2019 Visit Diagnosis Plan: Colitis Discussion: Levaquin/Fla gyl Dare Diet ICD-9 : 558.9 ICD-10 : K52.9 06/16/2019 Patient Education: Levaquin- [employer] Coupon [id number] [id number] https://[email or web address]/resources/getResource/61/[email or web address] Completed 06/16/2019 Visit Diagnosis Plan: Diarrhea Discussion: Vancomycin for 10 days and notify if not improving or worsening BLAND diet Hydrate ICD-9 : 787.91 ICD-10 : R19.7 06/08/2019 Appointment: Belia Reid WPtel: [facility] TELEMEDICINE 06/08/2019 Visit Diagnosis Plan: Acute febrile illness Discussion : Notify if worsens ICD-9 : 780.60 ICD-10 : R50.9 05/26/2019 Visit Diagnosis Plan: Colitis Discussion: Flagyl plus cipro to cover for both colitis and UTI Notify or to ER if worsening ICD-9 : 558.9 ICD-10 : K52.9 05/26/2019 Appointment: Belia Reid WPtel: [phone] TELEMEDICINE 05/26/2019 Appointment: Pattie Sotomayor [address] RESCHEDULED 05/18/2019 Visit Diagnosis Plan: Chronic obstructive pulmonary di sease, unspecified Discussion: Recommend pulmonary rehab Patient states she never went to pulmonary rehab due to cost as well as transportation issues Finish trelagy Stop singulair Decrease hydroxyzine to 25mg po q HS Fwup [address] scan of Chest results discussed ICD-9 : 496 ICD-10 : J44.9 05/13/2019 Appointment: Belia Reid WPtel: [address] [place], [place] [phone] Hospital Follow Up 05/13/2019 Visit Diagnosis Plan: COUGH Discussion: Check CT scan of chest ICD-9 : 786.2 ICD-10 : R05 05/06/2019 Visit Diagnosis Plan: Stridor Discussion: Add Trelagy 1 p daily Add Singulair May need to see new pharmacy order entry technician ICD-9 : 786.1 ICD-10 : R06.1 05/06/2019 Appointment: Belia Reid WPtel: [address] [place], [place] [phone] FOLLOW UP 05/06/2019 Patient Education: Singulair- [employer] Coupon [id number] https://www.[email or web address]/resources/getResource/61/[email or web address] Completed 05/06/2019 Appointment: Belia Reid WPtel: [address] [place] [address] [place] RESCHEDULED 04/30/2019 Visit Diagnosis Plan: Stridor [...] : G25.5 04/29/2019 Appointment: Belia Reid WPtel: [address] [place], [place] [phone] Hospital Follow Up 04/29/2019 Patient Education: Valium- [employer] Coupon [id number] https://www.LoveSur[employer]/sampleUUSEE/resources/getResource/61/[email or web address] Completed 04/29/2019 Visit Diagnosis Plan: Flank pain [...] ICD-10 : R63.5 04/16/2019 Appointment: Pattie Sotomayor [address] [place] [address] ACUTE ILLNESS 04/16/2019 Patient Education: cyclobenzaprine- [employer] C[employer]on [id number] [email or web address]/[email or web address] Completed 04/16/2019 Visit Diagnosis Plan: Migraine, unspecif ied, not intractable, without status migrainosus Discussion: Increase gabapentin to 600mg po BID ICD-9 : 346.90 ICD-10 : G43.909 04/08/2019 Visit Diagnosis Plan: Generalized pruritus Discussion: Hydroxyzine 25mg po TID for itching and anxiety ICD-9 : 698.9 ICD-10 : L29.9 04/08/2019 Appointment: Belia Reid WPtel: [address] [place] [address] ACUTE ILLNESS 04/08/2019 Visit Diagnosis Plan: Cervicalgia [...] : M75.52 01/22/2019 Appointment: Belia Reid WPtel: [facility] Hospital Follow Up 01/22/2019 Visit Diagnosis Plan: Abdominal pain Discussion: urine culture sent to assess for any infection. rocephin given in office to cover for pyelonephritis. instructed to push fluids. call office with any new or worsening symptoms. ICD-9 : 789.00 ICD-10 : R10.9 01/07/2019 Appointment: Pattie Sotomayor [address] [place] [address] ACUTE ILLNESS 01/07/2019 Visit Diagnosis Plan: Low back pain Discussion: Stat C T of abdomen/pelvis now ICD-9 : 724.2 ICD-10 : M54.5 12/24/2018 Appointment: Belia Reid WPtel: [address] [place] [address] FOLLOW UP 12/24/2018 Visit Diagnosis Plan: Migraine, [...] : M79.7 11/20/2018 Appointment: Belia Reid WPtel: [address] [place] [address] ACUTE ILLNESS 11/20/2018 Patient Education: baclofen- [employer]on [id number] https://www.[email or web address]/samplemd/resources/getResource/[email or web address] Completed 11/20/2018 Visit Diagnosis Plan: Migraine, unspecif ied, intractable, without status migrainosus Discussion: toradol/phenergan given in o ffice (60 mg toradol, 12.5 mg phenergan). instructed to call if no improvement or worsening. instructed to follow up with vice president of software development since headaches are occurring more frequently to make sure vision is not the cause. ICD-9 : 346.91 ICD-10 : G43.919 11/04/2018 Visit Diagnosis Plan: Acute sinusitis, unspecified Dis cussion: zithromax prescribed to cover for sinus infection due to length of symptoms and clinincal s/s. ICD-9 : 461.9 ICD-10 : J01.90 11/04/2018 Appointment: [facility] [facility] 11/04/2018 Appointment: Belia Reid WPtel: [address] [place], [place] [phone] [place] CANCELED 09/24/2018 Visit Diagnosis Plan: Type 2 diabetes me llitus with diabetic neuropathy, unspecified Discussion: Retry gabapentin 300mg po q HS ICD-9 : 250.60 ICD-10 : E11.40 09/18/2018 Visit Diagnosis Plan: Vitamin D deficiency, unspecifie d Discussion: Increase Vitamin D3 to 10,000 u daily ICD-9 : 268.9 ICD-10 : E55.9 09/18/2018 Visit Diagnosis Plan: Encounter for [facility] adult medical examination without abnormal findings Discussion: [...] : I10 09/18/2018 Appointment: Belia Reid WPtel: [facility] Annual Well Visit 09/18/2018 Patient Education: gabapentin- [employer] Coupon [id number] [email or web address]://www.[email or web address]/[email or web address]/resources/getResource/[email or web address] Completed 09/18/2018 Visit Diagnosis Plan: Pain in [...] : M54.89 09/08/2018 Appointment: Pattie Sotomayor [address] [facility] ACUTE ILLNESS 09/08/2018 Patient Education: prednisone- [employer] Coupon [id number] https://www.[employer]/sampleUUSEE/resources/getResource/61/[email or web address]-bz Completed 09/08/2018 Visit Diagnosis Plan: Pruritus, unspecified [...] : E10.9 08/20/2018 Appointment: Belia Reid WPtel: [facility]0 [facility] ACUTE ILLNESS 08/20/2018 Patient Education: Lexapro- [employer] C[employer]on [id number] Completed 08/20/2018 Patient Education: hydroxyzine HCl- [employer] Coupon [id number] Completed 08/20/2018 Care Plan[facility] 2 6347[facility]5 Pending 08/20/2018 Visit Diagnosis Plan: Paroxysmal atrial fibrillation D iscussion: Discuss eliquis need with cardiology at [facility] due to cost ICD-9 : 427.31 ICD-10 : I48.0 06/19/2018 Visit Diagnosis Plan: Hypotension due to drugs Discuss ion: Discussed decreasing cardizem dose due to low BP and edema but sees cardiology next week Follow Up: 1 months ICD-9 : 458.8 ICD-10 : I95.2 06/19/2018 Appointment: Bel[facility] Reid WPtel[phone] [facility] FOLLOW UP 06/19/2018 Visit Diagnosis Plan: [...] R61 06/09/2018 Appointment: Belia Reid WPtel: [phone] [facility] FOLLOW UP 06/09/2018 Care Plan: CHEST X-RAY 2VW FRONTAL&LATL LOINC : 60393-6 Pending 05/26/2018 Visit Diagnosis Plan: Supraventricular tachycardia [...] R53.1 05/21/2018 Appointment: Belia Reid WPtel: [phone] [facility] [facility] Follow Up 05/21/2018 Visit Diagnosis Plan: Cervical disc diso rder with radiculopathy, unspecified cervical region Discussion: Scheduled for surgery on 06/02 10/[address] Faulkner ICD-9 : 722.0 ICD-10 : M50.10 04/16/2018 Appointment: Belia Reid WPtel: [address] [place], [place] [phone] Hospital Follow Up 04/16/2018 Visit Diagnosis Plan: [...] ICD-10 : G43.919 04/01/2018 Appointment: Pattie Sotomayor [address] [place] [address] ACUTE ILLNESS 04/01/2018 Appointment: Belia Reid WPtel: [address] [place] [address] 03/17/2018 Visit Diagnosis Plan: Chronic obstructiv e [...] : E11.65 03/06/2018 Appointment: Belia Reid WPtel: [address] [place] [address] Hospital Follow Up 03/06/2018 Visit Diagnosis Plan: Cervicalgia Discussion: spoke wi th dr. reid about patient. increased gabapentin to bid and started on celebrex bid. tramadrol rx written out to take prn. keep scheduled appt next week for myelogram. ICD-9 : 723.1 ICD-10 : M54.2 02/05/2018 Appointment: Pattie Sotomayor [address] [place], [place] [phone] ACUTE ILLNESS 02/05/2018 Care Plan: X-RAY EXAM NECK SPINE 4/5VWS cervical LOINC : 75163-3 Pending 01/21/2018 Visit Diagnosis Plan: Candidiasis of [...] ICD-10 : M54.2 01/20/2018 Appointment: Pattie Sotomayor [address] [place] [address] ACUTE ILLNESS 01/20/2018 Visit Diagnosis Plan: Pain in thoracic spine Discussio n: Proceed with CT scan of thoracic spine Will likely need PT ICD-9 : 724.1 ICD-10 : M54.6 12/25/2017 Appointment: Belia Reid WPtel: [phone] FOLLOW UP 12/25/2017 Care Plan: CT THORAX W/O DYE LOINC : 473 66-0 Pending 12/25/2017 Visit Diagnosis Plan: Pain in thoracic spine Discussio n: Stretches Alternated heat/ice Topical aspercreme with lidocaine Flexeril Recheck 1 week Flu and Pneumovax given ICD-9 : 724.1 ICD-10 : M54.6 12/17/2017 Appointment: Belia Reid WPtel: [phone] [facility]6676[facility] ACUTE ILLNESS 12/17/2017 Patient Education: Patient Medication [...] ICD-10 : J44.1 10/30/2017 Appointment: Belia Reidtel: [address] [place], [place] [phone] [place] FOLLOW UP 10/30/2017 Patient Education: Patient Medication Summary Completed 10/30/2017 Visit Diagnosis Plan: Chronic obstructiv e pulmonary disease with acute lower respiratory infection Discussion: Continue SVNs with albuterol q4hrs Add Trelagy 1 inhalation daily Finish steroids Increase water intake Follow Up: 1 weeks ICD-9 : 496 ICD-10 : J44.0 10/23/2017 Appointment: Belia Reidtel: [address] [place], [place] [phone] WORK IN 10/23/2017 Patient Education: Patient Medication Summary Completed 10/23/2017 Appointment: Belia Reidtel: [address] [place], [place] [phone] NO SHOW 10/16/2017 Visit Diagnosis Plan: Confusional [...] ICD-10 : E11.65 09/17/2017 Appointment: Belia Reidtel: [address] [place], [place] [phone] Annual Well Visit 09/17/2017 Patient Education: Patient Medication Summary Completed 09/17/2017 Appointment: Belia Reidtel: [address] [place], [place] [phone] US INJECTION 08/26/2017 Patient Education: Patient Medication Summary Completed 08/26/2017 Appointment: Belia Reidtel: [phone] [facility] [facility] CANCELED 07/31/2017 Visit Diagnosis Plan: Encounter [...] : J20.9 07/19/2017 Appointment: Pattie Sotomayor 504 [id number]LL[facility] 07/19/2017 Patient Education: Patient Medication Summary Completed 07/19/2017 Care Plan: MAMMOGRAM SCREENING LOINC : 2 6347-5 Pending 07/19/2017 Patient Education: Patient Medication Summary Completed 06/05/2017 Care Plan: LIPID PANEL LOINC : 05746-7 Pending 06/05/2017 Care Plan: A1C HPLC LOINC : 74800-2 Pending 06/05/2017 Visit Diagnosis Plan: Rash and [...] : R21 05/29/2017 Appointment: Pattie Sotomayor 504 [employer] [id number] FOLLOW UP 05/29/2017 Patient Education: Patient Medication Summary Completed 05/29/2017 Visit Diagnosis Plan: Tinea corporis Discussion: Diflu can and topical nystatin Follow Up: 2 weeks ICD-9 : 110.5 ICD-10 : B35.4 05/07/2017 Visit Diagnosis Plan: Diarrhea, unspecified Discussion : Diflucan Cholestyramine Recheck 2weeks ICD-9 : 787.91 ICD-10 : R19.7 05/07/2017 Appointment: Belia Reid WPtel: [address] [place] [address] US FOLLOW UP 05/07/2017 Patient Education: Patient Medication Summary Completed 05/07/2017 Appointment: Belia Reidtel: [address] [place] [address] US RESCHEDULED 04/30/2017 Visit Diagnosis Plan: Chronic obstructiv e pulmonary disease with (acute) exacerbation Discussion: Finish prednisone Continue S VNS with albuterol ICD-9 : 491.21 ICD-10 : J44.1 03/18/2017 Visit Diagnosis Plan: Stridor Discussion: Increase Ati van 0.5mg po to TID routinely for next week then can go back to prn ICD-9 : 786.1 ICD-10 : R06.1 03/18/2017 Appointment: Belia Reid WPtel: [address] [place], [place] [phone] ER Follow UP 03/18/2017 Patient Education: Patient [...] : E11.65 02/27/2017 Appointment: Belia Reid WPtel: [address] [place], [place] [phone] US FOLLOW UP 02/27/2017 Patient Education: Patient [...] ICD-10 : E11.65 02/22/2017 Appointment: Pattie Sotomayor [facility]6676[facility] ACUTE ILLNESS 02/22/2017 Patient Education: Patient Medication [...] J18.9 01/23/2017 Appointment: Belia Reid WPtel: [phone] [facility] [facility] Follow UP 01/23/2017 Patient Education: Patient Medication Summary Completed 01/23/2017 Appointment: Pattie Sotomayor [address] [place], [place] [address]a [facility] US CANCELED 01/17/2017 Appointment: Pattie Sotomayor [address] [place], [place] [phone] Annual Well Visit 01/14/2017 Visit Diagnosis Plan: Type 2 diabetes mellitus with hy perglycemia Discussion: Check CMP, HbA1C Flu shot and Prevnar 13 given Follow Up: 3 months ICD-9 : 250.02 ICD-10 : E11.65 12/20/2016 Visit Diagnosis Plan: Localized edema Discussion: Low Na diet Compression socks/Elevate feet ICD-9 : 782.3 ICD-10 : R60.0 12/20/2016 Appointment: Belia Reid WPtel: [phone] [facility] FOLLOW UP 12/20/2016 Patient Education: Patient Medication Summary Completed 12/20/2016 Patient Education: Patient Medication Summary Completed 10/10/2016 Visit Plan: Xrays of cervical, thoracic and lumbar spine at [facility] for Mobic (stop NSAIDS except Tylenol) and Flexeril UA sent for C&S Using SVN Call in 2-3 days if pain not improved or any worsening 10/08/2016 Appointment: Celeste Ferreira WPtel: [phone] ACUTE ILLNESS 10/08/2016 Patient Education: Patient [...] : E11.65 09/19/2016 Appointment: Belia Reid WPtel: [facility] 09/18 confirmed`sl FOLLOW UP 09/19/2016 Patient Education: [...] : R10.84 08/20/2016 Appointment: Belia Reid WPtel: [address] [place] [address] 08/16 confirmed~sl FOLLOW UP 08/20/2016 Patient Education: [...] : J44.9 06/19/2016 Appointment: Belia Reid WPtel: [address] [place], [place] [phone] [place] 06/18 confirmed ~ Hospital Follow Up [...] : Z87.440 06/04/2016 Appointment: Belia Reid WPtel: [facility]4 [facility] US 06/01 confirmed~sl FOLLOW UP 06/04/2016 Patient [...] : R06.1 05/02/2016 Appointment: Belia Reid WPtel: [address] [place], [place] [phone] 05/01 confirmed [facility] Hospital Follow Up 05/02/2016 Patient Education: [...] : N39.0 04/03/2016 Appointment: Belia Reid WPtel: [address] [place], [place] [phone] 04/02 [facility] Follow Up 04/03/2016 Patient Education: Patient Medication Summary Completed 04/03/2016 Visit Plan: Lungs are clear Her symptoms and exam are all upper airway restriction/constriction Can try supportive care Rx as above Follow up PRN 02/29/2016 Appointment: Lidia Hwang [address] [place], [place] [phone] ACUTE ILLNESS 02/29/2016 Patient Education: Patient Medication Summary Completed 02/29/2016 Visit Plan: Toradol/Phenergan today for Migraine Change to Clindamycin to cover lactobacillus for UTI Cover with flagyl due to hx of C. Diff 02/02/2016 Appointment: Belia Reid WPtel: [address] [place], [place] [phone] 01/31 confirmed`sl ACUTE ILLNESS 02/02/2016 Patient Education: Patient Medication Summary Completed 02/02/2016 Visit Plan: Increase neurontin to 300mg q AM and 600mg q PM Discussed neurology re-evaluation Flu shot given Need to check on Pneumonia shot Rx written out for albuterol 01/05/2016 Appointment: Belia Reid WPtel: [address] [place], [place] [phone] 01/03 confirmed ~sl Annual Well Visit 01/05/2016 Patient Education: Patient Medication Summary Completed 01/05/2016 Visit Plan: Cipro Culture urine hydrate Flexeril refilled Alternate heat and ice for back Increase gabapentin to 300mg po BID Notify if worsens 12/05/2015 Appointment: Belia Reid WPtel: [address] [place], [place] [phone] 11/30 confirmed~sl ACUTE ILLNESS 12/05/2015 Patient Education: Patient Medication Summary Completed 12/05/2015 Patient Education: Patient Medication Summary Completed 10/27/2015 Care Plan: [place] : [address]-0 Pending 10/27/2015 Care Plan: A1C HPLC LOINC : 92149-2 Pending 10/27/2015 Visit Plan: Lungs are CTA today and is f eeling improved overall Finish meds as ordered Continue inhalers and neb treatments Discussed migraine treatment options She does not feel she needs anything additional added today Refill of Januvia sent since no samples are available today 10/26/2015 Appointment: Lidia Hwang [address] [place], [place] [phone] Hospital Follow Up 10/26/2015 Appointment: Lidia Hwang [address] [place], [place] [phone] CANCELED 10/26/2015 Patient Education: Patient Medication Summary Completed 10/26/2015 Patient Education: Januvia - 18+ - KENNETH - No CA [place] Completed 10/26/2015 Visit Plan: Office dip still abnormal Cu lture pending Switch to cipro - stop macrobid Push fluids - avoid caffeine Will call with culture results when available Follow up if worsening 10/05/2015 Appointment: Lidia Hwang [address] [place], [place] [phone] ER Follow UP 10/05/2015 Patient Education: Patient Medication Summary Completed 10/05/2015 Visit Plan: Proceed with PT for document ation of ROM and strength of all extremities Proceed with Power Mobility Device Trial of neurontin 300mg q HS--lyrica helped but patient unable to afford Recheck 1month 09/15/2015 Appointment: Belia Reid WPtel: [address] [place], [place] [phone] 09/13 confirmed~sl SPECIAL 09/15/2015 Patient Education: Patient Medication Summary Completed 09/15/2015 Visit Plan: Fille out Loan Discharge Pap erwork for total and permanent disability 08/25/2015 Patient Education: Patient Medication Summary Completed 08/25/2015 Visit Plan: Discussed with Dr Franklin Haywood at CT of head Will get last date of carotid doppler from 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 and update if needed 08/24/2015 Appointment: Lidia Hwang [address] [place], [place] [phone] 08/22 confirmed~sl ACUTE ILLNESS 08/24/2015 Patient Education: Patient Medication Summary Completed 08/24/2015 Patient Education: Patient Medication Summary Completed 08/24/2015 Care Plan: US EXAM OF HEAD AND NECK carotid Ultrasound LOIN C : 00209-3 Pending 08/24/2015 Visit Plan: Long discussion about diet A ccuchecks daily Check HbA1C, CMP Change requip to mirapex 07/05/2015 Appointment: Belia Reid WPtel: [address] [place] [id number] 07/03 confirmed ~sl FOLLOW UP 07/05/2015 Patient Education: Patient Medication Summary Completed 07/05/2015 Visit Plan: Add Breo ellipta 100 1 p BID Continue SVNs with duoneb QID 06/06/2015 Appointment: Belia Reid WPtel: [address] [place], [place] [phone] Patient is calling for a ride, then retu rning our call.-sp 06/01 called and patient stated she will know saturday if she can get a ride~sl 06/05 [facility] Hospital Follow Up 06/06/2015 Patient Education: Patient [...] not improving 05/23/2015 Appointment: Huong Osborne WPtel: [address] [place], [place] [phone] ACUTE ILLNESS 05/23/2015 Appointment: Lidia Hwang [address] [place], [place] [phone] ER Follow UP 05/23/2015 Patient Education: Patient Medication Summary Completed 05/23/2015 Visit Plan: Check pancreatic enzymes and US of pancreas as patient can't understand why she has diabetes since has no family history Discussed weight, diet, exercise all play an important role in diabetes and are risk factors as well Continue Januvia and accuchecks daily 05/05/2015 Appointment: Belia Reid WPtel: [address] [place], [place] [phone] FOLLOW UP 05/05/2015 Patient Education: Patient Medication Summary Completed 05/05/2015 Care Plan: US EXAM ABDOM COMPLETE LOINC : 56814-7 Ordered 05/05/2015 Visit Plan: Start Januvia 100mg daily [place] with diflucan and culture urine Accuchecks daily alternating times Recheck 6weeks 03/30/2015 Appointment: Belia Reidtel: [address] [place], [place] [phone] 03/29 confirmed~lb FOLLOW UP 03/30/2015 Patient Education: Patient Medication Summary Completed 03/30/2015 Appointment: Belia Reid WPtel: [address] [place], [place] [phone] [place] 03/01 needs reschedule due to payment and insurance ~sl FOLLOW UP 03/02/2015 Visit Plan: Patient was just in ER last night so has not filled scripts yet Start Carafate and Flagyl and Cipro Add Hyophen 1 po BID Recheck 1mo 02/03/2015 Appointment: Belia Reid: [address] [place] [id number] 02/02lm ~sl...02/03/15 appt confirmed cn ACUTE I LLNESS 02/03/2015 Patient Education: Patient Medication Summary Completed 02/03/2015 Visit Plan: Warm soaks to vaginal area K elex and Diflucan and observe Zofran to use prn 12/29/2014 Appointment: Belia Reid WPtel: [address] [place], [place] [phone] 12/28 Confirmed ~sl ACUTE ILLNESS 12/29/2014 Patient Education: Patient Medication Summary Completed 12/29/2014 Appointment: Huong Osborne WPtel: [address] [place], [place] [phone] FOLLOW UP 09/24/2014 Appointment: Belia Reid WPtel: [address] [place], [place] [phone] 09/15 confirmed -mf FOLLOW UP 09/16/2014 Visit Plan: Increase requip to 2mg po BI D Increase lyrica to 225mg total a day by adding an extra 75mg in AM Recheck in 2weeks Continue to patch left eye while sleeping 09/02/2014 Appointment: Belia Reid WPtel: [address] [place], [place] [phone] 09/01 appt confirmed cn Hospital Follow Up 09/02 Patient Education: Patient Medication Summary Completed 09/02/2014 Visit Plan: To [facility] for observat ion to R/O CVA 08/25/2014 Appointment: Huong Osborne WPtel: [address] [place], [place] [phone] ACUTE ILLNESS 08/25/2014 Patient Education: Patient Medication Summary Completed 08/25/2014 Referral: Aaron Jonas WPtel: [facility] [address], [id number] In [place] location Initiated 04/26/2014 Referral: Brian Srinivasan WPtel: [place] [facility] [address] Referral Initiated 04/20/2014 Appointment: Belia Reid WPtel: [address] [place], [place] [phone] ER Follow UP 04/01/2014 Patient Education: Patient Medication Summary Completed 04/01/2014 Care Plan: MYELOGRAPHY NECK SPINE LOINC : 17195-4 Ordered 04/01/2014 Visit Plan: Continue Symbicort 160 at 2p BID Continue SVNs with duoneb at least QID Finish Levaquin Recheck 1mo on lyrica 03/16/2014 Appointment: Belia Reid WPtel: [address] [place] [address] 03/15 voicemail FOLLOW UP 03/16/2014 Patient Education: Patient Medication Summary Completed 03/16/2014 Visit Plan: Restart SVNs with duoneb QID Repeat prednisone Levaquin Continue symbicort Keep lyrica at same dose Recheck 1week 03/09/2014 Appointment: Belia Reid WPtel: [address] [place] [address] FOLLOW UP 03/09/2014 Patient Education: Patient Medication Summary Completed 03/09/2014 Appointment: Belia Reid WPtel: [address] [place] [address] 03/03 showed up 15 minutes late for appt -- put her on Huong's side for 10:45am FORGIVEN PER DR FOLLOW UP 03/03/2014 Appointment: Huong Osborne WPtel: [address] [place] [address] [place] FOLLOW UP 03/03/2014 Patient Education: Patient Medication Summary Completed 03/03/2014 Appointment: Huong Osborne WPtel: [address] [place], [place] [phone] ER Follow UP 03/01/2014 Patient Education: Patient Medication Summary Completed 03/01/2014 Visit Plan: Add carafate for this next m onth Increase lyrica to 150mg q HS 02/09/2014 Appointment: Belia Reid WPtel: [address] [place], [place] [phone] [facility] Follow Up 02/09/2014 Patient Education: Patient Medication Summary Completed 02/09/2014 Visit Plan: Increase omeprazole back to 40mg po BID Use requip in AM and add lyrica 75mg q HS Recheck 1mo 12/23/2013 Appointment: Belia Reid WPtel: [address] [place], [place] [phone] FOLLOW UP 12/23/2013 Patient Education: Patient Medication Summary Completed 12/23/2013 Patient Education: Patient Medication Summary Completed 12/04/2013 Appointment: Belia Reid WPtel: [address] [place] [address] 10/30/2013 Patient Education: Patient Medication Summary Completed 10/30/2013 Appointment: Belia Reid WPtel: [address] [place] [address] 10/21/2013 Patient Education: Patient Medication Summary Completed 10/21/2013 Visit Plan: Cryotherapy as above TAC and hydroxyzine to use prn to itching spots and itching SKs Add Advair HFA 115/21 1 p BID 10/05/2013 Appointment: Belia Reid WPtel: [address] [place], [place] [phone] 10/01 pt called and confirmed ACUTE ILLNESS Patient Education: Patient Medication Summary Completed 10/05/2013 Appointment: Belia Reid WPtel: [address] [place], [place] [phone] will pay copay and part of past balance FOLLOW U P 08/04/2013 Patient Education: Patient Medication Summary Completed 08/04/2013 Appointment: Belia Reid WPtel: [address] [place], [place] [phone] [place] INJECTION 07/13/2013 Patient Education: Patient Medication Summary Completed 07/13/2013 Appointment: Huong Osborne WPtel: [address] [place], [place] [phone] [place] ACUTE ILLNESS 07/03/2013 Patient Education: Patient Medication Summary Completed 07/03/2013 Visit Plan: Cipro and culture urine 05/27/2013 Appointment: Huong Osborne WPtel: [address] [place], [place] [phone] [place] 05/26 confirmed appt and 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 at 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 FOLLOW UP 05/27/2013 Patient Education: Patient Medication Summary Completed 05/27/2013 Appointment: Belia Reid WPtel: [address] [place], [place] [phone] [place] UA 05/25/2013 Patient Education: Patient Medication Summary Completed 05/25/2013 Appointment: Belia Reid WPtel: [address] [place], [place] [phone] US INJECTION 05/04/2013 Patient Education: Patient Medication Summary Completed 05/04/2013 Appointment: Belia Reid WPtel: [address] [place], [place] [phone] US INJECTION 04/17/2013 Patient Education: Patient Medication Summary Completed 04/17/2013 Appointment: Belia Reid WPtel: [address] [place], [place] [phone] US INJECTION 04/15/2013 Appointment: Belia Reid WPtel: [address] [place], [place] [phone] [place] 04/02 FOLLOW UP 04/06/2013 Patient Education: Patient Medication Summary Completed 04/06/2013 Visit Plan: Obtain lab results including UA from [facility] 11/10/2012 Appointment: Belia Reid WPtel: [address] [place] [address] ER Follow UP 11/10/2012 Patient Education: Patient Medication Summary Completed 11/10/2012 Appointment: Belia Reid WPtel: [address] [place], [place] [phone] 10/30/12 patient canceled appt due to fin ances. Offered to work something out, patient declined-LB FOLLOW UP 11/05/2012 Visit Plan: Continue Bystolic at current dose Pt has fwup with Neurology on September 16 09/02/2012 Appointment: Belia Reid WPtel: [address] [place] [address] FOLLOW UP 09/02/2012 Patient Education: Patient Medication Summary Completed 09/02/2012 Visit Plan: Continue bystolic at 5mg chris ly Sees Neurology tomorrow Use oxygen at bedtime 08/04/2012 Appointment: Belia Reid WPtel: [address] [place] [address] FOLLOW UP 08/04/2012 Patient Education: Patient Medication Summary Completed 08/04/2012 Appointment: Belia Reid WPtel: [address] [place] [address] Hospital fwup for 07/21/12. merged appointments FOLLOW UP 07/24/2012 Visit Plan: Start Bystolic 5mg daily for tachycardia Fwup with neurology for further workup Overnight O2 sat 07/21/2012 Appointment: Belia Reid WPtel: [address] [place] [address] Hospital Follow Up 07/21/2012 Patient Education: Patient Medication Summary Completed 07/21/2012 Visit Plan: SVN with Albuterol QID Add A velox 400mg daily Notify if worsens or persists 07/02/2012 Appointment: Belia Reid WPtel: [address] [place] [address] ACUTE ILLNESS 07/02/2012 Patient Education: Patient Medication Summary Completed 07/02/2012 Appointment: Belia Reid WPtel: [address] [place], [place] [phone] [place] INJECTION 06/25/2012 Patient Education: Patient Medication Summary Completed 06/25/2012 Appointment: Belia Reid WPtel: [address] [place], [place] [phone] FOLLOW UP 06/24/2012 Patient Education: Patient Medication Summary Completed 06/24/2012 Appointment: Belia Reid WPtel: [address] [place], [place] [phone] 05/19 left message FOLLOW UP 05/20/2012 Patient [...] po TID 05/08/2012 Appointment: Belia Reid WPtel: [address] [place] [phone] ACUTE ILLNESS 05/08/2012 Patient Education: Patient Medication Summary Completed 05/08/2012 Visit Plan: Continue current meds Contin ue lower dose on pain meds and Diazepam Still waiting on paperwork for botox for Migraines Will restart Neurontin at 600mg po q HS Pt going to stop Depakote due to can't afford 04/22/2012 Appointment: Belia Reid WPtel: [address] [place] [phone] 04/21 Hospital Follow Up 04/22/2012 Patient Education: Patient Medication Summary Completed 04/22/2012 Visit Plan: Injection to shoulder as abo ve Continue current meds Has appointment with neurology on [facility] in 02/13/2012 Appointment: Belia Reid WPtel: [address] [place] [phone] [facility] - will bring it in next week. Kianna iqbal'ed this. - [place] FOLLOW UP 02/13/2012 Patient Education: Patient Medication Summary Completed 02/13/2012 Visit Plan: Proceed with headache specia list Change nexium to Protonix Phenergan to use prn Sumatriptan to use prn Pt still on Inderal 01/28/2012 Appointment: Belia Reid WPtel: [address] [place] [address] ER Follow UP 01/28/2012 Patient Education: Patient [...] for sleep 12/26/2011 Appointment: Belia Reid WPtel: [address] [place], [place] [phone] 12/24- appt. confirmed FOLLOW UP 2 Patient Education: Patient Medication Summary Completed 12/26/2011 Appointment: Belia Reid WPtel: [address] [place], [place] [phone] [place] FOLLOW UP 11/14/2011 Patient Education: Patient Medication Summary Completed 11/14/2011 Appointment: Belia Reid WPtel: [address] [place], [place] [phone] [place] FOLLOW UP 09/12/2011 Patient Education: Patient Medication Summary Completed 09/12/2011 Visit Plan: Supportive care Decrease Liseth catalino to 50mg q HS Decrease AM dose of Valium to 5mg q HS Use Endocet sparingly 08/15/2011 Appointment: Belia Reid WPtel: [address] [place], [place] [phone] ER Follow UP 08/15/2011 Patient Education: Patient Medication Summary Completed 08/15/2011 Appointment: Belia Reid WPtel: [address] [place] [address] [place] Spoke directly to patient yesterday and confirmed the appoin tmedavid. ACUTE ILLNESS 08/09/2011 Patient Education: Patient Medication Summary Completed 08/09/2011 Appointment: Belia Reid WPtel: [address] [place] [address] Hospital Follow Up 07/03/2011 Patient Education: Patient Medication Summary Completed 07/03/2011 Appointment: Belia Reid WPtel: [address] [place] [address] FOLLOW UP 06/04/2011 Patient Education: Patient Medication Summary Completed 06/04/2011 Visit Plan: Pt. wants "allergy shot" but in fact wants steroid shot. Will take a break from "generic Zyrtec they are getting from [facility]" and try Singulair for 2 weeks. 05/03/2011 Appointment: Iraida Jones WPtel: [address] [place] [address] ACUTE ILLNESS 05/03/2011 Patient Education: Patient Medication Summary Completed 05/03/2011 Visit Plan: Neurontin 400mg q HS for 1we ek then 800mg q HS Decrease requip to 1mg q HS for 2wks then stop Fwup 2mos 04/05/2011 Appointment: Belia Reid WPtel: [address] [place] [address] FOLLOW UP 04/05/2011 Patient Education: Patient Medication Summary Completed 04/05/2011 Visit Plan: Trial of neurontin in 2wks C ontinue current meds for stomach Pt has procedure with Dr. Ortiz next week for stone removal 03/08/2011 Appointment: Belia Reid WPtel: [address] [place] [address] Hospital Follow Up 03/08/2011 Patient Education: Patient Medication Summary Completed 03/08/2011 Appointment: Belia Reid WPtel: [address] [place], [place] [phone] [place] FOLLOW UP 02/19/2011 Visit Plan: reports [...] with Flagyl 01/24/2011 Appointment: Iraida Jones WPtel: [address] [place] [address] ACUTE ILLNESS 01/24/2011 Patient Education: Patient Medication Summary Completed 01/24/2011 Appointment: Belia Reid WPtel: [address] [place] [address] [place] FOLLOW UP 01/02/2011 Patient Education: Patient Medication Summary Completed 01/02/2011 Appointment: Belia Reid WPtel: [address] [place] [address] FOLLOW UP 12/12/2010 Appointment: Belia Reid WPtel: [address] [place] [address] ACUTE ILLNESS 12/07/2010 Patient Education: Patient Medication Summary Completed 12/07/2010 Visit Plan: Increase Buspar to 10mg po B ID 11/16/2010 Appointment: Belia Reid WPtel: [address] [place], [place] [phone] [place] FOLLOW UP 11/16/2010 Patient Education: Patient Medication Summary Completed 11/16/2010 Appointment: Iraida Jones WPtel: [address] [place], [place] [phone] ER Follow UP 11/02/2010 Patient Education: Patient Medication Summary Completed 11/02/2010 Visit Plan: Depo-Medrol/Kenalog given fo r allergies Add BuSpar for anxiety Oxycodone one p.o. q.i.d. for number 120 refilled 10/18/2010 Appointment: Belia Reid WPtel: [address] [place] [address] FOLLOW UP 10/18/2010 Patient Education: Patient Medication Summary Completed 10/18/2010 Visit Plan: Continue current meds Discus sed epidurals for back vs PT--will proceed with epidurals to thoracolumbar region to see if helps with pain 09/19/2010 Appointment: Belia Reid WPtel: [address] [place] [address] FOLLOW UP 09/19/2010 Patient Education: Patient Medication Summary Completed 09/19/2010 Visit Plan: DC MS contin Check CT scan t horacic spine Fwup pending above results 09/06/2010 Appointment: Belia Reid WPtel: [address] [place] [address] FOLLOW UP 09/06/2010 Patient Education: Patient Medication Summary Completed 09/06/2010 Visit Plan: Continue current meds Restar t MS contin 15mg po BID and use oxycodone prn Use daily senokot-s 2 po BID 08/10/2010 Appointment: Belia Reidtel: [address] [place], [place] [phone] FOLLOW UP 08/10/2010 Patient Education: Patient Medication Summary Completed 08/10/2010 Visit Plan: Depomedrol/Kenalog given Pt sees ENT later this month Cont current meds Mammo scheduled 05/11/2010 Appointment: Belia Reid WPtel: [address] [place], [place] [phone] FOLLOW UP 05/11/2010 Patient Education: Patient Medication Summary Completed 05/11/2010 Appointment: Belia Reid WPtel: [address] [place], [place] [phone] UA 05/04/2010 Patient Education: Patient Medication Summary Completed 05/04/2010 Visit Plan: Pt sent to lab for UA 04/28/2010 Appointment: Belia Reidtel: [address] [place], [place] [phone] [place] [address] 04/28/2010 Patient Education: Patient Medication Summary Completed 04/28/2010 Visit Plan: Check CT angiogram of chest Restart Advair Use proair prn Cont current meds Fwup with Card as schedulec 04/06/2010 Appointment: Belia Reidtel: [address] [place] [address] Follow Up 04/06/2010 Patient Education: Patient Medication Summary Completed 04/06/2010 Visit Plan: Paperwork filled out for pow erchair Depomedrol/kenalog given Pt sees ENT in 2wks to assess nasal obstruction problems 02/09/2010 Appointment: Belia Reidtel: [address] [place] [address] ESTABLISHED PATIENT 02/09/2010 Patient Education: Patient Medication Summary Completed 02/09/2010 Visit Plan: Change Elavil to Trazadone 1 50mg q HS Diflucan and nystatin for tinea cruris 01/05/2010 Appointment: Belia Reidtel: [address] [place] [address] FOLLOW UP 01/05/2010 Patient Education: Patient Medication Summary Completed 01/05/2010 Appointment: Belia Reidtel: [address] [place] [address] FOLLOW UP 12/07/2009 Patient Education: Patient Medication Summary Completed 12/07/2009 Appointment: Belia Reidtel: [address] [place] [address] FOLLOW UP 11/22/2009 Visit Plan: Cont current meds and await MRI results from Dr. Meadows's office and his final recommendations Will need to follow-up at later date on deviated septum 11/08/2009 Appointment: Belia Reid WPtel: [address] [place], [place] [phone] FOLLOW UP 11/08/2009 Patient Education: Patient Medication Summary Completed 11/08/2009 Visit Plan: Cont PT/OT See Neurosurgery Cont Dwain alejandrace 10/24/2009 Appointment: Belia Reid WPtel: [address] [place], [place] [phone] FOLLOW UP 10/24/2009 Patient Education: Patient Medication Summary Completed 10/24/2009 Appointment: Belia Reid WPtel: [address] [place], [place] [phone] [place] [address] Follow Up 10/17/2009 Appointment: Belia Reid WPtel: [address] [place] [address] ACUTE ILLNESS 07/25/2009 Patient Education: Patient Medication Summary Completed 07/25/2009 Appointment: Belia Reid WPtel: [address] [place], [place] [phone] FOLLOW UP 05/26/2009 Patient Education: Patient Medication Summary Completed 05/26/2009 Referral: Chino Balderas WPtel: [address] [place], [place] [phone] [place] Referral Initiated Referral: Merry Vale WPtel: [facility] [id number] [place] [address] Vale will review referral and book appointment Completed Referral: Francisco Javier Yoder WPtel: [address] [id number] [place] Patient needs EGD insurance will not inc rease a medication unless this procedure results show a need Completed Referral: Francisco Javier Yoder WPtel: [address] [id number] [place] Referral Historical Reference Referral: Francisco Javier Yoder WPtel: [address] [place] [address] [place] Referral Initiated Instructions Comment . 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 Long discussion [...] from "generic Zyrtec they are getting from [facility]" and try Singulair for 2 weeks. . [...]
--- OUTSIDE RECORDS SUMMARY | 2019-06-23 17:43 | XMS REPORT | CCD ---
Author Author Diana Reid D.O. Organization [facility] Address [address] [place] [address] Phone Care Team Providers Care Donor Floor Technician Name Role Phone Belia Reid D.O., PP Unavailable CCM Unavailable Summary Purpose Interface Exchange Insurance Providers Payer name Policy type / Coverage type Covered green party ID Effective Begin Date Effective End Date [employer] MEDICARE Medicare Part B [id number] 2019 Unknown Family History Family History data not found Social History Social History Element Codes Description Effective Dates Tobacco history SNOMED CT: 212039220 Nonsmoker 09/13/2010 Allergies, Adverse Reactions, Alerts Substance Reaction Codes Entered Date Inactivated Date Status Eggs reaction [id number] 09/15/2015 No Inactive Date Active _ Unknown [...] Fill Instructions Levaquin 500 mg tablet RxNorm: 416306 1 Tablet(s) Oral QD 06/16/2019 06/23/2019 Active Flagyl 500 mg tablet RxNorm: 814919 1 Tablet(s) Oral three time s a day 06/16/2019 06/23/2019 Active Vancocin 125 mg capsule RxNorm: 773765 1 Capsule(s) Oral four t imes a day 06/08/2019 06/18/2019 Active diltiazem CD 240 mg capsule,extended release 24 hr RxNorm: 8 08756 1 Capsule(s) Oral QD 05/26/2019 11/21/2019 Active omeprazole 40 mg capsule,delayed release RxNorm: 971225 1 Capsule(s) Oral two times a day 05/26/2019 11/21/2019 Active Flagyl 500 mg tablet RxNorm: 172521 1 Tablet(s) Oral three time s a day 05/26/2019 06/05/2019 Inactive Cipro 250 mg tablet RxNorm: 791328 1 Tablet(s) Oral two times a day 05/26/2019 06/02/2019 Inactive hydroxyzine HCl 25 mg tablet RxNorm: 154813 1 Tablet(s) Oral QPM for itching/aniety 05/21/2019 06/27/2019 Active metoprolol tartrate 25 mg tablet RxNorm: 171312 1 Table t(s) Oral two times a day 05/21/2019 08/19/2019 Active hydroxyzine HCl 25 mg tablet RxNorm: 381136 1 Tablet(s) Oral QPM for itching/aniety 05/13/2019 05/20/2019 Inactive Singulair 10 mg tablet RxNorm: 245262 1 Tablet(s) Oral QPM 05/06/1905/12/2019 Inactive gabapentin 600 mg tablet RxNorm: 525861 1 Tablet(s) Oral QD 020 06/05/2019 Inactive Valium 5 mg tablet RxNorm: 067189 1 Tablet(s) Oral QPM for stri joao/muscle spasm 04/29/2019 05/29/2019 Inactive baclofen 10 mg tablet RxNorm: 980566 1 Tablet(s) Oral QPM for s pasm/neck pain 04/24/2019 05/23/2019 Inactive baclofen 10 mg tablet RxNorm: 561705 1 Tablet(s) Oral QPM for s pasm/neck pain 04/24/2019 04/23/2019 Inactive Novolin N NPH U-100 Insulin isophane 100 unit/mL subcu taneous susp RxNorm: 089934 23 Unit(s) Subcutaneous two times a day 04/20/2019 No Stop Date A ctive cyclobenzaprine 5 mg tablet RxNorm: 857651 1 Tablet(s) Oral three times a day as needed 04/16/2019 04/23/2019 Inactive hydroxyzine HCl 25 mg tablet RxNorm: 754165 1 Tablet(s) Oral three times a day for itching/aniety 04/08/2019 05/12/2019 Inactive gabapentin 600 mg tablet RxNorm: 954944 1 Tablet(s) Oral two ti mes a day 04/08/2019 05/05/2019 Inactive gabapentin 600 mg tablet RxNorm: 966365 1 Tablet(s) Oral two ti mes a day 04/08/2019 04/07/2019 Inactive Novolin N NPH U-100 Insulin isophane 100 unit/mL subcu taneous susp RxNorm: 380084 10 Unit(s) Subcutaneous two times a day 03/03/2019 04/19/2019 I nactive gabapentin 300 mg capsule RxNorm: 538866 1 Capsule(s) O ral every night at bedtime for neuropathy 02/26/2019 04/07/2019 Inactive gabapentin 300 mg capsule RxNorm: 986486 1 Capsule(s) O ral every night at bedtime for neuropathy 02/20/2019 02/25/2019 Inactive pramipexole 1 mg tablet RxNorm: 758234 1 Tablet(s) Oral QPM FOR RESTLESS LEGS (REPLACES REQUIP) 02/12/2019 02/07/2020 Active buspirone 5 mg tablet RxNorm: 722007 TAKE 1 TABLET THREE TIMES MILDRED Y 02/12/2019 05/12/2019 Inactive Lexapro 10 mg tablet RxNorm: 283996 TAKE 1 TABLET EVERY DAY FOR MOO D 01/31/2019 No Stop Date Active Ativan 0.5 mg tablet RxNorm: 248913 TAKE 1 TABLET BY MO UT THREE TIMES DAILY NEEDED FOR ANXIETY 01/26/2019 04/28/2019 Inactive Ativan 0.5 mg tablet RxNorm: 369780 TAKE 1 TABLET BY MO UTH THREE TIMES DAILY NEEDED FOR ANXIETY 01/05/2019 01/05/2019 Inactive Levaquin 500 mg tablet RxNorm: 967820 1 Tablet(s) Oral QD 12/25/2018 12/24/2018 Inactive Levaquin 500 mg tablet RxNorm: 926856 1 Tablet(s) Oral QD 12/25/2018 01/04/2019 Inactive baclofen 10 mg tablet RxNorm: 273414 1 Tablet(s) Oral three maico es a day 11/20/2018 01/19/2019 Inactive Ativan 0.5 mg tablet RxNorm: 387678 TAKE 1 TABLET BY MO UTH THREE TIMES DAILY NEEDED FOR ANXIETY 11/20/2018 01/04/2019 Inactive gabapentin 300 mg capsule RxNorm: 650431 1 Capsule(s) O ral every night at bedtime for neuropathy 11/20/2018 12/20/2018 Inactive Lexapro 10 mg tablet RxNorm: 794024 1 Tablet(s) PO QD for mood 07/201801/30/2019 Inactive Zithromax Z-Lj 250 mg tablet RxNorm: 985875 Tablet(s) PO take as directed 11/04/2018 11/19/2018 Inactive Insulin Syringe 1 mL 29 gauge x 1/2" RxNorm: 2 s yringes daily with insulin Dx: E11.65 10/08/2018 No Stop Date Active gabapentin 300 mg capsule RxNorm: 407865 1 Capsule(s) PO QHS fo r neuropathy 09/18/2018 10/17/2018 Inactive cyclobenzaprine 5 mg tablet RxNorm: 220664 1 Tablet(s) PO TID a s needed 09/09/2018 09/08/2018 Inactive cyclobenzaprine 5 mg tablet RxNorm: 028827 1 Tablet(s) PO TID a s needed 09/09/2018 10/08/2018 Inactive prednisone 20 mg tablet RxNorm: 897722 1 Tablet(s) PO QD 09/08/2018 0 09/12/2018 Inactive Lantus Solostar U-100 Insulin 100 unit/mL (3 mL) subcu taneous pen RxNorm: 625145 55 Unit(s) SQ QAM 08/28/2018 11/03/2018 Inactive hydroxyzine HCl 25 mg tablet RxNorm: 070831 1 Tablet(s) PO QHS for itching 08/20/2018 05/12/2019 Inactive Lexapro 10 mg tablet RxNorm: 018301 1 Tablet(s) PO QD for mood 08/0210/18/2018 Inactive sumatriptan 100 mg tablet RxNorm: 302817 1 Tablet(s) PO at headache onset. May repeat 1 in two hours if headache remains. Max of 2 per 24 hours 04/02/2018 05/20/2018 Inactive Diflucan 150 mg tablet RxNorm: 995782 1 Tablet(s) PO QD 03/18/2018 Inactive Diflucan 150 mg tablet RxNorm: 006033 1 Tablet(s) PO QD 03/18/2018 Inactive Flagyl 500 mg tablet RxNorm: 642808 1 Tablet(s) PO TID 03/17/2018 Inactive Levaquin 500 mg tablet RxNorm: 547464 1 Tablet(s) PO QD 03/17/2018 Inactive Levaquin 500 mg tablet RxNorm: 508749 1 Tablet(s) PO QD 03/17/2018 Inactive Flagyl 500 mg tablet RxNorm: 106665 1 Tablet(s) PO TID 03/17/2018 Inactive ketoconazole 200 mg tablet RxNorm: 224317 1 Tablet(s) PO QD 019 03/19/2018 Inactive Celebrex 200 mg capsule RxNorm: 090365 1 Capsule(s) PO BID 02/06/20 18 05/20/2018 Inactive tramadol 50 mg tablet RxNorm: 838543 1 Tablet(s) PO TID as needed 1 04/08/2017 05/20/2018 Inactive gabapentin 300 mg capsule RxNorm: 456738 1 Capsule(s) PO BID 201705/20/2018 Inactive Diflucan 150 mg tablet RxNorm: 803576 1 Tablet(s) PO QD 01/20/2018 Inactive pramipexole 1 mg tablet RxNorm: 854805 1 Tablet(s) PO Q PM FOR RESTLESS LEGS (REPLACES REQUIP) 01/08/2018 02/11/2019 Inactive cyclobenzaprine 10 mg tablet RxNorm: 594368 1 Tablet(s) PO TID as needed for muscle spasm 12/17/2017 05/20/2018 Inactive pramipexole 1 mg tablet RxNorm: 398337 TAKE 1 TABLET BY MOUTH ONCE DAILY IN THE EVENING FOR RESTLESS LEGS (REPLACES REQUIP) 12/04/2017 01/05/2018 Inac tive Amaryl 4 mg tablet RxNorm: 074422 1 Tablet(s) PO BID replaces 2mg 0 11/05/2017 12/16/2017 Inactive Singulair 10 mg tablet RxNorm: 114452 1 Tablet(s) PO QHS for al lergies/lungs 10/30/2017 12/16/2017 Inactive Diflucan 100 mg tablet RxNorm: 582015 1 Tablet(s) PO QD 10/23/2017 Inactive Ativan 0.5 mg tablet RxNorm: 405177 TAKE 1 TABLET BY MOUTH THRE E TIMES DAILY 08/30/2017 11/20/2018 Inactive buspirone 5 mg tablet RxNorm: 799982 1 Tablet(s) PO TID 07/11/2017 Inactive propranolol 60 mg tablet RxNorm: 135882 1 Tablet(s) PO BID repl aces 40mg dose 06/26/2017 12/16/2017 Inactive Amaryl 4 mg tablet RxNorm: 051540 1 Tablet(s) PO BID replaces 2mg 0 06/12/2017 11/05/2017 Inactive omeprazole 40 mg capsule,delayed release RxNorm: 026936 1 Capsule(s) PO BID TAKE ONE CAPSULE BY MOUTH TWICE DAILY 05/30/2017 11/25/2017 Inactive pramipexole 1 mg tablet RxNorm: 366705 1 Tablet(s) PO Q PM for restless legs--replaces requip 05/30/2017 11/25/2017 Inactive amitriptyline 50 mg tablet RxNorm: 277726 1 Tablet(s) PO QHS 201709/16/2017 Inactive Diflucan 100 mg tablet RxNorm: 524066 1 Tablet(s) PO BID 05/07/2017 0 05/20/2017 Inactive nystatin (bulk) 100 million unit powder RxNorm: Application TO P BID 05/07/2017 05/20/2018 Inactive cholestyramine (with sugar) 4 gram oral powder RxNorm: 960994 1 Unit Dose PO QD 05/07/2017 01/20/2018 Inactive Ativan 0.5 mg tablet RxNorm: 941638 TAKE ONE TABLET BY MOUTH TH REE TIMES DAILY 05/01/2017 09/02/2017 Inactive Trulicity 1.5 mg/0.5 mL subcutaneous pen injector RxNorm: 15 57750 1 Unit Dose SQ WEEKLY 02/22/2017 03/23/2017 Inactive doxycycline hyclate 100 mg capsule RxNorm: 0418271 1 Capsule(s) PO BID 01/23/2017 02/05/2017 Inactive Amaryl 4 mg tablet RxNorm: 866990 1 Tablet(s) PO BID replaces 2mg 1 03/25/2016 05/22/2017 Inactive magnesium oxide 400 mg capsule RxNorm: 434586 1 Capsule(s) PO QD 07/18/2017 Inactive Ativan 0.5 mg tablet RxNorm: 194749 TAKE ONE TABLET BY MOUTH TH REE TIMES DAILY 01/17/2017 05/01/2017 Inactive Amaryl 2 mg tablet RxNorm: 331316 1 Tablet(s) PO BID 12/27/201601/22 Inactive Amaryl 2 mg tablet RxNorm: 238110 1 Tablet(s) PO BID 12/26/201612/26 Inactive Ativan 0.5 mg tablet RxNorm: 991188 TAKE ONE TABLET BY MOUTH TH REE TIMES DAILY 12/05/2016 01/18/2017 Inactive pramipexole 1 mg tablet RxNorm: 800964 1 Tablet(s) PO Q PM for restless legs--replaces requip 11/26/2016 05/30/2017 Inactive Mobic 15 mg tablet RxNorm: 881216 1 Tablet(s) PO QD 10/08/20162016 Inactive cyclobenzaprine 5 mg tablet RxNorm: 651203 1/2- 1 Tablet(s) PO TID 10/08/2016 10/17/2016 Inactive Ativan 0.5 mg tablet RxNorm: 229101 1 Tablet(s) PO TID 09/20/201607/2016 Inactive amitriptyline 50 mg tablet RxNorm: 298734 1 Tablet(s) PO QHS 201605/30/2017 Inactive propranolol 60 mg tablet RxNorm: 418807 1 Tablet(s) PO BID repl aces 40mg dose 09/19/2016 06/26/2017 Inactive Ativan 0.5 mg tablet RxNorm: 672011 1 Tablet(s) PO TID 08/20/2016 Inactive omeprazole 40 mg capsule,delayed release RxNorm: 820716 1 Capsule(s) PO BID TAKE ONE CAPSULE BY MOUTH TWICE DAILY 08/20/2016 05/30/2017 Inactive amitriptyline 50 mg tablet RxNorm: 193097 1 Tablet(s) PO QHS 201609/18/2016 Inactive pramipexole 1 mg tablet RxNorm: 017304 1 Tablet(s) PO Q PM for restless legs--replaces requip 07/23/2016 11/25/2016 Inactive Amaryl 2 mg tablet RxNorm: 165272 1 Tablet(s) PO BID 07/23/201612/27 Inactive propranolol 40 mg tablet RxNorm: 705697 1 Tablet(s) PO BID 07/13/19 17 09/18/2016 Inactive Ativan 0.5 mg tablet RxNorm: 564826 1 Tablet(s) PO QID 06/19/2016 Inactive Amaryl 2 mg tablet RxNorm: 981154 1 Tablet(s) PO BID 06/19/201607/22 Inactive Ativan 0.5 mg tablet RxNorm: 003762 1 Tablet(s) PO QID 06/19/2016 Inactive buspirone 5 mg tablet RxNorm: 854050 1 Tablet(s) PO TID 06/19/2016 Inactive Ativan 0.5 mg tablet RxNorm: 206062 1 Tablet(s) PO BID 05/24/2016 Inactive buspirone 5 mg tablet RxNorm: 860709 1 Tablet(s) PO TID 05/23/2016 Inactive Macrobid 100 mg capsule RxNorm: 003849 1 Capsule(s) PO QOD 05/03/1910/07/2016 Inactive pramipexole 1 mg tablet RxNorm: 569492 Tablet(s) 1 Tabl et(s) PO QPM for restless legs--replaces requip 04/26/2016 06/24/2016 Inactive propranolol 40 mg tablet RxNorm: 665021 TAKE ONE TABLET BY MOUT H TWICE DAILY 04/26/2016 06/24/2016 Inactive Detrol LA 4 mg capsule,extended release RxNorm: 030767 1 Capsul e(s) PO QHS 04/03/2016 05/02/2016 Inactive prednisone 20 mg tablet RxNorm: 103960 1 Tablet(s) PO QD 02/29/2016 0 03/04/2016 Inactive Actos 30 mg tablet RxNorm: 647523 TAKE ONE TABLET BY MOUTH ONCE DAILY 02/27/2016 12/19/2016 Inactive clindamycin 300 mg capsule RxNorm: 725319 1 Capsule(s) PO TID 02/0102/08/2016 Inactive Flagyl 500 mg tablet RxNorm: 784180 1 Tablet(s) PO BID 02/02/201609/2015 Inactive omeprazole 40 mg capsule,delayed release RxNorm: 959792 TAKE ONE CAPSULE BY MOUTH TWICE DAILY 01/15/2016 07/12/2016 Inactive gabapentin 300 mg capsule RxNorm: 571334 1 Capsule(s) PO QAM an d 2 po q HS 01/05/2016 06/18/2016 Inactive gabapentin 300 mg capsule RxNorm: 440957 1 Capsule(s) P O BID 1 Capsule(s) PO QHS 12/05/2015 01/04/2016 Inactive cyclobenzaprine 10 mg tablet RxNorm: 720334 1 Tablet(s) PO TID for spasm as needed for muscle spasm 12/05/2015 06/18/2016 Inactive ciprofloxacin 250 mg tablet RxNorm: 155632 1 Tablet(s) PO BID 12/0412/14/2015 Inactive pramipexole 1 mg tablet RxNorm: 188584 Tablet(s) 1 Tabl et(s) PO QPM for restless legs--replaces requip 11/07/2015 11/26/2016 Inactive Januvia 100 mg tablet RxNorm: 987298 1 Tablet(s) PO QD 10/26/201504/2015 Inactive propranolol 40 mg tablet RxNorm: 889198 TAKE ONE TABLET BY MOUT H TWICE DAILY 10/25/2015 04/21/2016 Inactive gabapentin 300 mg capsule RxNorm: 810900 1 Capsule(s) PO QHS 201512/04/2015 Inactive Cipro 500 mg tablet RxNorm: 466378 1 Tablet(s) PO BID 10/05/201511/2015 Inactive pramipexole 1 mg tablet RxNorm: 953376 Tablet(s) 1 Tabl et(s) PO QPM for restless legs--replaces requip 10/04/2015 11/02/2015 Inactive propranolol 40 mg tablet RxNorm: 956857 TAKE ONE TABLET BY MOUT H TWICE DAILY 09/26/2015 10/24/2015 Inactive Amaryl 2 mg tablet RxNorm: 411993 1 Tablet(s) PO QD 09/15/20152016 Inactive gabapentin 300 mg capsule RxNorm: 449978 1 Capsule(s) PO QHS 201510/14/2015 Inactive buspirone 5 mg tablet RxNorm: 591125 1 Tablet(s) PO TID 09/15/2015 Inactive pramipexole 1 mg tablet RxNorm: 802577 Tablet(s) 1 Tabl et(s) PO QPM for restless legs--replaces requip 09/08/2015 10/03/2015 Inactive pramipexole 1 mg tablet RxNorm: 709292 1 Tablet(s) PO Q PM for restless legs--replaces requip 08/08/2015 09/08/2015 Inactive Amaryl 2 mg tablet RxNorm: 038735 1 Tablet(s) PO QD 07/07/20152015 Inactive pramipexole 1 mg tablet RxNorm: 246155 1 Tablet(s) PO Q PM for restless legs--replaces requip 07/05/2015 08/03/2015 Inactive ropinirole 2 mg tablet RxNorm: 497746 TAKE ONE TABLET BY MOUTH TWICE DAILY 05/09/2015 09/14/2015 Inactive Diflucan 100 mg tablet RxNorm: 801275 1 Tablet(s) PO QD 03/30/2015 Inactive propranolol 40 mg tablet RxNorm: 063167 1 Tablet(s) PO BID 02/24/20 15 08/21/2015 Inactive [SAVINGS FOR UNINSURED PATIE NTS -- BIN:527286, PCN: ASPROD1, Group: AME08, ID# [id number], Process claim through Gingr, for questions: . THIS IS NOT INSURANCE.] Flagyl 500 mg tablet RxNorm: 533603 1 Tablet(s) PO BID 02/03/201502/2015 Inactive Cipro 500 mg tablet RxNorm: 967483 1 Tablet(s) PO BID 02/03/201502/01 Inactive Carafate 1 gram tablet RxNorm: 116379 1 Tablet(s) PO QID make i nto slurry 02/03/2015 09/14/2015 Inactive ondansetron HCl 4 mg tablet RxNorm: 005313 1 Tablet(s) PO Q4H as needed for nausea 12/29/2014 01/04/2016 Inactive Diflucan 100 mg tablet RxNorm: 538849 1 Tablet(s) PO QD 12/29/2014 Inactive Keflex 500 mg capsule RxNorm: 119391 1 Capsule(s) PO TID 12/29/2014 1 03/09/2014 Inactive omeprazole 40 mg capsule,delayed release RxNorm: 059308 1 Capsu le(s) PO BID 12/27/2014 12/21/2015 Inactive [SAVINGS FOR UNINSUR ED PATIENTS -- BIN:638380, PCN: ASPROD1, Group: AME08, ID# [id number], Process claim through MedImpact, for questions: . THIS IS NOT INSURANCE.] ropinirole 2 mg tablet RxNorm: 138080 1 Tablet(s) PO BID 09/29/2014 0 03/27/2015 Inactive [SAVINGS FOR UNINSURED PATIENTS -- BIN:0 35202, PCN: ASPROD1, Group: AME08, ID# [id number], Process claim through MedImpact, for questions: . THIS IS NOT INSURANCE.] buspirone 5 mg tablet RxNorm: 417081 1 Tablet(s) PO TID 09/17/2014 Inactive ropinirole 2 mg tablet RxNorm: 093301 1 Tablet(s) PO BID 09/02/2014 0 09/28/2014 Inactive [SAVINGS FOR UNINSURED PATIENTS -- BIN:0 45849, PCN: ASPROD1, Group: AME08, ID# [id number], Process claim through MedImpact, for questions: . THIS IS NOT INSURANCE.] Zyrtec 10 mg tablet RxNorm: 7767056 1 Tablet(s) PO QD 09/02/201412/02 Inactive propranolol 40 mg tablet RxNorm: 151766 1 Tablet(s) PO BID 07/21/19 15 02/23/2015 Inactive [SAVINGS FOR UNINSURED PATIE NTS -- BIN:821181, PCN: ASPROD1, Group: AME08, ID# [id number], Process claim through MedImpact, for questions: . THIS IS NOT INSURANCE.] ropinirole 2 mg tablet RxNorm: 290846 1 Tablet(s) PO QHS 05/14/2014 0 09/01/2014 Inactive [SAVINGS FOR UNINSURED PATIENTS -- BIN:0 51748, PCN: ASPROD1, Group: AME08, ID# [id number], Process claim through MedImpact, for questions: . THIS IS NOT INSURANCE.] cyclobenzaprine 10 mg tablet RxNorm: 580283 1 Tablet(s) PO QHS for spasm 04/06/2014 09/01/2014 Inactive ipratropium-albuterol 0.5 mg-3 mg(2.5 mg base)/3 mL ne bulization soln RxNorm: 9581214 1 Unit Dose INH Q4H 03/16/2014 No Stop Date Active [SAVINGS FOR UNINSURED PATIENTS -- BIN:957967, PCN: ASPROD1, Group: AME08, ID# [id number], Process claim through MedImpact, for questions: . THIS IS NOT INSURANCE.] prednisone 20 mg tablet RxNorm: 169678 1 Tablet(s) PO BID 03/09/2014 03/15/2014 Inactive [SAVINGS FOR UNINSURED PATIENTS -- BIN:0 45753, PCN: ASPROD1, Group: AME08, ID# [id number], Process claim through MedImpact, for questions: . THIS IS NOT INSURANCE.] ipratropium-albuterol 0.5 mg-3 mg(2.5 mg base)/3 mL ne bulization soln RxNorm: 0591804 1 Unit Dose INH Q4H 03/09/2014 03/15/2014 Inactive [SAVINGS FOR UNINSURED PATIENTS -- BIN:080601, PCN: ASPROD1, Group: AME08, ID# [id number], Process claim through MedImpact, for questions: . THIS IS NOT INSURANCE.] Levaquin 500 mg tablet RxNorm: 911471 1 Tablet(s) PO QD 03/09/2014 Inactive [SAVINGS FOR UNINSURED PATIENTS -- BIN:0 50027, PCN: ASPROD1, Group: AME08, ID# [id number], Process claim through MedImpact, for questions: . THIS IS NOT INSURANCE.] Carafate 1 gram tablet RxNorm: 403633 1 Tablet(s) PO AC & HS ma ke into slurry 02/09/2014 09/01/2014 Inactive [SAVINGS FOR UNINSUR ED PATIENTS -- BIN:001448, PCN: ASPROD1, Group: AME08, ID# [id number], Process claim through MedImpact, for questions: . THIS IS NOT INSURANCE.] Fioricet 50 mg-300 mg-40 mg capsule RxNorm: 2094182 1-2 Capsule(s) PO Q4H as needed for headache --max of 6 a day 02/09/2014 09/01/2014 Inactive [SAVINGS FOR UNINSURED PATIENTS -- BIN:880303, PCN: ASPROD1, Group: AME08, ID# [id number], Process claim through MedImpact, for questions: . THIS IS NOT INSURANCE.] propranolol 40 mg tablet RxNorm: 811966 1 Tablet(s) PO BID 12/08/19 14 06/04/2014 Inactive [SAVINGS FOR UNINSURED PATIE NTS -- BIN:739535, PCN: ASPROD1, Group: AME08, ID# [id number], Process claim through MedImpact, for questions: . THIS IS NOT INSURANCE.] buspirone 5 mg tablet RxNorm: 111292 1 Tablet(s) PO TID 12/02/2013 Inactive omeprazole 40 mg capsule,delayed release RxNorm: 335746 1 Capsu le(s) PO BID 11/25/2013 11/19/2014 Inactive [SAVINGS FOR UNINSUR ED PATIENTS -- BIN:614478, PCN: ASPROD1, Group: AME08, ID# [id number], Process claim through MedImpact, for questions: . THIS IS NOT INSURANCE.] ropinirole 2 mg tablet RxNorm: 679493 1 Tablet(s) PO QHS 11/10/2013 0 05/08/2014 Inactive [SAVINGS FOR UNINSURED PATIENTS -- BIN:0 16979, PCN: ASPROD1, Group: AME08, ID# [id number], Process claim through MedImpact, for questions: . THIS IS NOT INSURANCE.] Cipro 500 mg tablet RxNorm: 340026 1 Tablet(s) PO BID 10/21/201312/03 Inactive [SAVINGS FOR UNINSURED PATIENTS -- BIN:0 34797, PCN: ASPROD1, Group: AME08, ID# [id number], Process claim through MedImpact, for questions: . THIS IS NOT INSURANCE.] hydroxyzine HCl 25 mg tablet RxNorm: 883105 1 Tablet(s) PO Q4-6 H as needed 10/05/2013 01/04/2016 Inactive [SAVINGS FOR UNINSUR ED PATIENTS -- BIN:274775, PCN: ASPROD1, Group: AME08, ID# [id number], Process claim through MedImpact, for questions: . THIS IS NOT INSURANCE.] triamcinolone acetonide 0.1 % topical cream RxNorm: 6360422 Appl ication TOP BID 10/05/2013 09/01/2014 Inactive [SAVINGS FOR UNINSUR ED PATIENTS -- BIN:021937, PCN: ASPROD1, Group: AME08, ID# [id number], Process claim through MedImpact, for questions: . THIS IS NOT INSURANCE.] albuterol sulfate HFA 90 mcg/actuation aerosol inhaler RxNor m: 1721835 2 Puff(s) INH Q4H as needed for cough 10/01/2013 12/22/2013 Inactive [MAKSIM INGS FOR UNINSURED PATIENTS -- BIN:865948, PCN: ASPROD1, Group: AME08, ID# [id number], Process claim through MedImpact, for questions: . THIS IS NOT INSURANCE.] propranolol 40 mg tablet RxNorm: 695321 1 Tablet(s) PO BID 09/02/1911/2911/29/2013 Inactive [SAVINGS FOR UNINSURED PATIE NTS -- BIN:727729, PCN: ASPROD1, Group: AME08, ID# [id number], Process claim through MedImpact, for questions: . THIS IS NOT INSURANCE.] propranolol 40 mg tablet RxNorm: 517363 1 Tablet(s) PO BID 08/05/19 14 08/31/2013 Inactive [SAVINGS FOR UNINSURED PATIE NTS -- BIN:508574, PCN: ASPROD1, Group: AME08, ID# [id number], Process claim through MedImpact, for questions: . THIS IS NOT INSURANCE.] Toprol XL 50 mg tablet,extended release RxNorm: 787466 1 Tablet (s) PO QHS 07/23/2013 08/03/2013 Inactive Macrobid 100 mg capsule RxNorm: 181997 1 Capsule(s) PO BID 07/04/19 14 07/09/2013 Inactive Toprol XL 50 mg tablet,extended release RxNorm: 629852 1 Tablet (s) PO QHS 05/28/2013 06/26/2013 Inactive ciprofloxacin 500 mg tablet RxNorm: 099632 1 Tablet(s) PO BID 05/2706/02/2013 Inactive Bystolic 5 mg tablet RxNorm: 265166 1 Tablet(s) PO QD 05/27/201305/03 Inactive ropinirole 2 mg tablet RxNorm: 832560 1 Tablet(s) PO QHS 04/22/2013 0 11/09/2013 Inactive Cipro 250 mg tablet RxNorm: 385021 1 Tablet(s) PO BID 04/06/201311/2013 Inactive ropinirole 2 mg tablet RxNorm: 545530 1 Tablet(s) PO QHS 02/17/2013 0 04/21/2013 Inactive Amaryl 2 mg tablet RxNorm: 849213 1 Tablet(s) PO QAM 11/11/201211/10 Inactive Amaryl 2 mg tablet RxNorm: 258119 1 Tablet(s) PO QAM 11/11/201204/05 Inactive omeprazole 40 mg capsule,delayed release RxNorm: 643811 1 Capsu le(s) PO BID 08/14/2012 08/08/2013 Inactive Bystolic 5 mg tablet RxNorm: 080730 1 Tablet(s) PO QD 08/14/201205/03 Inactive propranolol 60 mg tablet RxNorm: 183895 Tablet(s) PO TAKE 1 TAB LET TWICE DAILY 08/01/2012 09/01/2012 Inactive Bystolic 5 mg tablet RxNorm: 053065 1 Tablet(s) PO QD 07/21/201207/02 Inactive Bystolic 5 mg tablet RxNorm: 820824 1 Tablet(s) PO QD 07/21/201207/03 Inactive Prilosec 40 mg capsule,delayed release RxNorm: 246657 1 Capsule (s) PO BID 06/24/2012 07/21/2012 Inactive buspirone 10 mg tablet RxNorm: 070951 1 Tablet(s) PO TID 05/08/2012 0 05/23/2016 Inactive Valium 10 mg tablet RxNorm: 530738 1 Tablet(s) PO BID 04/02/201207/03 Inactive Endocet 10 mg-325 mg tablet RxNorm: 3766926 1 Tablet(s) PO QID 03/0607/21/2012 Inactive as needed for severe pain Valium 10 mg tablet RxNorm: 747061 1 Tablet(s) PO BID 02/27/2012 No S top Date Active Endocet 10 mg-325 mg tablet RxNorm: 7616514 1 Tablet(s) PO QID 02/0203/27/2012 Inactive as needed for severe pain Endocet 10 mg-325 mg tablet RxNorm: 9597985 1 Tablet(s) PO QID 01/0302/26/2012 Inactive as needed for severe pain Valium 10 mg tablet RxNorm: 532379 1 Tablet(s) PO BID 01/29/2012 No S top Date Active Protonix 40 mg tablet,delayed release RxNorm: 824600 1 Tablet(s ) PO QD 01/28/2012 07/21/2012 Inactive metformin ER 500 mg tablet,extended release 24 hr RxNorm: 86 0977 1 Tablet(s) PO QD 12/26/2011 07/20/2012 Inactive Trazadone 150 mg Tablet RxNorm: 1 Tablet(s) PO QHS prn sleep 1 04/23/2012 Inactive Endocet 10 mg-325 mg tablet RxNorm: 9563936 1 Tablet(s) PO QID 12/0301/24/2012 Inactive as needed for severe pain Nexium 40 mg capsule,delayed release RxNorm: 053243 1 Capsule(s ) PO QD 12/26/2011 01/27/2012 Inactive Symbicort 160 mcg-4.5 mcg/actuation HFA Aerosol Inhaler RxNo rm: 0527047 2 Puff(s) INH BID 12/04/2011 07/21/2012 Inactive Endocet 10 mg-325 mg tablet RxNorm: 4331666 1 Tablet(s) PO QID 11/0312/25/2011 Inactive as needed for severe pain metformin ER 500 mg tablet,extended release 24 hr RxNorm: 86 0977 1 Tablet(s) PO QD 11/20/2011 12/19/2011 Inactive metformin ER 500 mg tablet,extended release 24 hr RxNorm: 86 0977 1 Tablet(s) PO QD 11/20/2011 11/19/2011 Inactive amitriptyline 100 mg tablet RxNorm: 699830 Tablet(s) PO QHS 1 a nd 1/2 tabs QHS 11/12/2011 11/13/2011 Inactive Valium 10 mg tablet RxNorm: 640707 1 Tablet(s) PO BID 11/09/2011 No S top Date Active Endocet 10 mg-325 mg tablet RxNorm: 4867050 1 Tablet(s) PO QID 10/0211/14/2011 Inactive as needed for severe pain Aricept 10 mg Tab RxNorm: 976512 1 Tablet(s) PO QD 10/05/2011 013 Inactive Valium 10 mg tablet RxNorm: 584901 1 Tablet(s) PO BID 10/05/2011 No S top Date Active Endocet 10 mg-325 mg Tab RxNorm: 6174771 1 Tablet(s) PO QID 012 10/09/2011 Inactive as needed for severe pain Aricept 10 mg Tab RxNorm: 961752 1 Tablet(s) PO QD 08/14/2011 012 Inactive Endocet 10 mg-325 mg Tab RxNorm: 4496967 1 Tablet(s) PO QID 012 08/31/2011 Inactive as needed for severe pain Valium 10 mg Tab RxNorm: 551592 1 Tablet(s) PO BID 08/02/2011 No Stop Date Active propranolol 60 mg tablet RxNorm: 677807 1 Tablet(s) PO BID 07/26/19 12 09/11/2011 Inactive amitriptyline 100 mg tablet RxNorm: 402120 Tablet(s) PO QHS 1 a nd / tabs QHS 06/20/2011 09/11/2011 Inactive buspirone 10 mg tablet RxNorm: 287934 1 Tablet(s) PO BID 06/18/2011 0 09/15/2011 Inactive propranolol 60 mg Tab RxNorm: 948407 1 Tablet(s) PO BID 06/18/2011 Inactive gabapentin 800 mg Tab RxNorm: 606117 1 Tablet(s) PO BID 06/18/2011 Inactive ropinirole 2 mg tablet RxNorm: 600742 1 Tablet(s) PO QHS 05/29/2011 0 08/26/2011 Inactive trimethoprim 100 mg Tab RxNorm: 390574 1 Tablet(s) PO QHS 05/29/2011 07/21/2012 Inactive Endocet 10 mg-325 mg Tab RxNorm: 1357207 1 Tablet(s) PO QID 012 2011 Inactive as needed for severe pain Valium 10 mg Tab RxNorm: 878993 1 Tablet(s) PO QHS N eed to take med as prescribed. this is a 40 day RX. No early fills. 05/17/2011 05/20/2018 Inactive propranolol 60 mg Tab RxNorm: 647845 1 Tablet(s) PO BID 04/16/2011 Inactive Neurontin 800 mg Tab RxNorm: 812135 1 Tablet(s) PO QHS 04/05/201103/2011 Inactive Endocet 10 mg-325 mg Tab RxNorm: 3133087 1 Tablet(s) PO QID 012 05/02/2011 Inactive as needed for severe pain oxycodone-acetaminophen 10 mg-325 mg tablet RxNorm: 2824583 1 Ta blet(s) PO Q4H 03/28/2011 05/19/2012 Inactive Valium 10 mg Tab RxNorm: 850742 1 Tablet(s) PO QHS 03/28/2011 012 Inactive buspirone 10 mg Tab RxNorm: 726017 1 Tablet(s) PO BID 03/27/201106/02 Inactive propranolol 60 mg Tab RxNorm: 863373 1 Tablet(s) PO BID 03/19/2011 Inactive Klor-Con M20 20 mEq Tab RxNorm: 7922151 1 Tablet(s) PO QD 03/19/2011 07/21/2012 Inactive Aricept 10 mg Tab RxNorm: 219596 1 Tablet(s) PO QD 02/27/2011 012 Inactive propranolol 60 mg Tab RxNorm: 664186 1 Tablet(s) PO BID 02/19/2011 Inactive omeprazole 40 mg capsule,delayed release RxNorm: 444473 1 Capsu le(s) PO BID 01/24/2011 05/23/2011 Inactive clindamycin 300 mg capsule RxNorm: 388423 1 Capsule(s) PO TID 01/2402/02/2011 Inactive propranolol 60 mg Tab RxNorm: 767525 1 Tablet(s) PO BID 01/22/2011 No Stop Date Active nystatin 100,000 unit/g Topical Cream RxNorm: 363641 Applicatio n TOP BID 01/15/2011 01/14/2011 Inactive to rash for 2-4 week s Diflucan 200 mg Tab RxNorm: 289891 1 Tablet(s) PO QD 01/15/201101/28 Inactive buspirone 10 mg Tab RxNorm: 820622 1 Tablet(s) PO BID 01/08/201103/05 Inactive Valium 10 mg Tab RxNorm: 166186 1 Tablet(s) PO QHS 01/05/2011 012 Inactive Diflucan 200 mg Tab RxNorm: 332099 1 Tablet(s) PO QD 01/01/201101/14 Inactive Diflucan 200 mg Tab RxNorm: 677536 1 Tablet(s) PO QD 12/18/201012/31 Inactive Valium 10 mg Tab RxNorm: 646885 1 Tablet(s) PO QHS 12/12/2010 011 Inactive Diflucan 200 mg Tab RxNorm: 498022 1 Tablet(s) PO QD 12/07/201012/18 Inactive Aricept 10 mg Tab RxNorm: 451178 1 Tablet(s) PO QD 11/20/2010 011 Inactive ropinirole 1 mg Tab RxNorm: 988618 1 Tablet(s) PO QHS 11/16/201005/03 Inactive enalapril maleate 5 mg Tab RxNorm: 068461 1 Tablet(s) PO QD 011 05/20/2018 Inactive buspirone 10 mg Tab RxNorm: 712379 1 Tablet(s) PO BID 11/16/201012/02 Inactive Valium 10 mg Tab RxNorm: 067297 1 Tablet(s) PO QHS 11/07/2010 011 Inactive Pyridium 100 mg Tab RxNorm: 6795466 1 Tablet(s) PO TID 11/02/201004/2010 Inactive Macrobid 100 mg Cap RxNorm: 8599079 1 Capsule(s) PO BID 11/02/2010 Inactive buspirone 10 mg Tab RxNorm: 287567 1 Tablet(s) PO QHS 10/18/201005/02 Inactive propranolol 60 mg Tab RxNorm: 863916 1 Tablet(s) PO BID 09/18/2010 Inactive Valium 10 mg Tab RxNorm: 768863 1 Tablet(s) PO QHS 09/05/2010 011 Inactive Aricept 10 mg Tab RxNorm: 734977 1 Tablet(s) PO QD 08/14/2010 011 Inactive Valium 10 mg Tab RxNorm: 815359 1 Tablet(s) PO QHS 06/26/2010 011 Inactive ropinirole 1 mg Tab RxNorm: 566135 1 Tablet(s) PO QHS 06/19/201010/02 Inactive omeprazole 40 mg Cap, delayed release RxNorm: 814324 1 Capsule( s) PO QD 06/07/2010 10/04/2010 Inactive Endocet 10 mg-325 mg Tab RxNorm: 0691850 1 Tablet(s) PO QID as needed for severe pain 06/07/2010 03/07/2011 Inactive Endocet 10 mg-325 mg Tab RxNorm: 0365159 1 Tablet(s) PO QID as needed for severe pain 05/04/2010 06/02/2010 Inactive Valium 10 mg Tab RxNorm: 592719 1 Tablet(s) PO QHS 05/01/2010 011 Inactive propranolol 60 mg Tab RxNorm: 353173 1 Tablet(s) PO BID 04/03/2010 Inactive Valium 10 mg Tab RxNorm: 676922 1 Tablet(s) PO QHS 03/28/2010 011 Inactive omeprazole 40 mg Cap, Delayed Release RxNorm: 735637 1 Capsule( s) PO QD 03/28/2010 06/06/2010 Inactive Endocet 10 mg-325 mg Tab RxNorm: 8766320 1 Tablet(s) PO QID prn ari n 03/27/2010 05/20/2018 Inactive Valium 10 mg Tab RxNorm: 703641 1 Tablet(s) PO QHS 02/20/2010 011 Inactive Diflucan 100 mg Tab RxNorm: 455115 1 Tablet(s) PO BID 01/23/201003/2009 Inactive Diflucan 100 mg Tab RxNorm: 807906 1 Tablet(s) PO BID 01/05/201001/02 Inactive Aricept 10 mg Tab RxNorm: 269393 1 Tablet(s) PO QD 12/01/2009 011 Inactive OxyContin 20 mg 12 hr Tab RxNorm: 0026974 1 Tablet(s) PO BID 200904/05/2010 Inactive oxycodone-acetaminophen 10 mg-325 mg Tab RxNorm: 0343889 1 Table t(s) PO Q4H 11/22/2009 11/26/2009 Inactive Phenergan 25 mg Tab RxNorm: 452432 1 Tablet(s) PO PRN MIGRAINE 11/0303/07/2011 Inactive Demerol 100 mg Tab RxNorm: 708197 1 Tablet(s) PO PRN MIGRAINE 11/2203/07/2011 Inactive Oxycodone-Acetaminophen 10 mg-325 mg Tab RxNorm: 9053341 1 Table t(s) PO Q4H 10/11/2009 10/15/2009 Inactive Percocet 10 mg-325 mg Tab RxNorm: 6627283 1 Tablet(s) PO Q4H 200910/24/2009 Inactive propranolol 60 mg Tab RxNorm: 007900 1 Tablet(s) PO BID 08/29/2009 Inactive Valium 10 mg Tab RxNorm: 994666 1 Tablet(s) PO QHS 08/16/2009 010 Inactive Keflex 500 mg Cap RxNorm: 330660 1 Capsule(s) PO BID 07/25/200907/31 Inactive Hydroxyzine 25 mg Tab RxNorm: 679244 1 Tablet(s) PO TID 07/25/2009 Inactive Prednisone 20 mg Tab RxNorm: 510591 1 Tablet(s) PO BID 07/25/2009 Inactive Demerol 100 mg Tab RxNorm: 670096 1 Tablet(s) PO PRN MIGRAINE 07/25 No Stop Date Active Ropinirole 1 mg Tab RxNorm: 158796 1 Tablet(s) PO HS 07/20/200902/14 Inactive Valium 10 mg Tab RxNorm: 107793 1 Tablet(s) PO QHS 07/18/2009 010 Inactive Endocet 10 mg-325 mg Tab RxNorm: 2527503 1 Tablet(s) PO TID 010 07/07/2009 Inactive Demerol 100 mg Tab RxNorm: 237155 1 Tablet(s) PO PRN MIGRAINE 06/08 No Stop Date Active Ropinirole 1 mg Tab RxNorm: 891745 1 Tablet(s) PO HS 05/16/200907/14 Inactive ipratropium-albuterol 0.5 mg-3 mg(2.5 mg base)/3 mL ne bulization soln RxNorm: 5688542 1 Unit Dose INH Q4H as needed No Start Date Active MagOx 400 mg (241.3 mg magnesium) tablet RxNorm: 476772 1 Table t(s) PO BID No Start Date Active Vitamin B12 1000mcg Tablet RxNorm: 1 Tablet(s) PO QD No Start Date Active Vitamin D3 5,000 unit tablet RxNorm: 547753 1 Tablet(s) PO QD No Star t Date Active Tylenol Arthritis Pain 650 mg tablet,extended release RxNorm : 0453120 1 Tablet(s) PO Q4H No Start Date Active Lotrimin AF 2 % topical powder RxNorm: 351651 1 Application TOP BID No Start Date Active enalapril maleate 5 mg Tab RxNorm: 066354 1 Tablet(s) PO QD No Star t Date 07/20/2012 Inactive Demerol 100 mg Tab RxNorm: 358501 Tablet(s) PO PRN MIGRAINE No Star t Date 06/02/2009 Inactive metformin 500 mg tablet RxNorm: 036990 1 Tablet(s) PO QD No Start D ate 04/05/2013 Inactive Breo Ellipta 100 mcg-25 mcg/dose powder for inhalation RxNor m: 9945457 1 Puff(s) INH BID No Start Date 01/04/2016 Inactive Mag-Oxide 400 mg Tab RxNorm: 002009 1 Tablet(s) PO QD No Start Date 0 07/21/2012 Inactive Cipro 500 mg Tab RxNorm: 431144 1 Tablet(s) PO QD No Start Date 04/05 Inactive Ativan 0.5 mg tablet RxNorm: 388536 1 Tablet(s) PO TID as needed No Start Date 05/06/2019 Inactive melatonin 3 mg tablet RxNorm: 227656 2 Tablet(s) PO QHS No Start Da te 08/19/2018 Inactive buspirone 10 mg Tab RxNorm: 723676 1 Tablet(s) PO QD No Start Date Inactive sucralfate 100 mg/mL Oral Susp RxNorm: 567813 2 Teaspoon(s) PO QID No Start Date 07/21/2012 Inactive hydrocodone 5 mg-acetaminophen 325 mg tablet RxNorm: 553575 1 Tablet(s) PO Q4H as needed No Start Date 08/19/2018 Inactive Amaryl 2 mg tablet RxNorm: 098924 1 Tablet(s) PO BID No Start Date Inactive OxyContin 20 mg 12 hr Tab RxNorm: 4915595 1 Tablet(s) PO BID No Sta rt Date 11/27/2009 Inactive propranolol 40 mg tablet RxNorm: 761998 1 Tablet(s) PO QID No Start Date 01/19/2018 Inactive Trazadone 150 mg Tablet RxNorm: 1-2 Tablet(s) PO QHS prn sleep No Start Date 08/09/2010 Inactive propranolol 60 mg Tab RxNorm: 683141 1/2 Tablet(s) PO BID No Start Date 01/21/2011 Inactive insulin NPH and regular human subcutaneous RxNorm: 6879812 subcu taneous No Start Date 11/20/2018 Inactive Ativan 0.5 mg tablet RxNorm: 867927 1 Tablet(s) PO QID No Start Date 06/18/2016 Inactive Vasotec 5 mg Tab RxNorm: 941192 1 Tablet(s) PO BID No Start Date 06/2011 Inactive Toprol XL 50 mg tablet,extended release RxNorm: 359027 1 Tablet (s) PO BID No Start Date 04/05/2013 Inactive Ativan 0.5 mg tablet RxNorm: 921546 1 Tablet(s) PO TID No Start Date 05/25/2016 Inactive Klor-Con M20 20 mEq Tab RxNorm: 2901948 1 Tablet(s) PO QD No Start Date 03/19/2011 Inactive sumatriptan 100 mg tablet RxNorm: 926615 1 Tablet(s) PO at headache onset--repeat in 2hrs if remains No Start Date 07/21/2012 Inactive propranolol 60 mg Tab RxNorm: 842937 1 Tablet(s) PO BID No Start Da te 08/28/2009 Inactive Cholestyramine Light 4 gram Oral Powder RxNorm: 6401746 1 Unit Dose PO QD in water No Start Date 07/21/2012 Inactive nystatin 100,000 unit/g Topical Powder RxNorm: 106258 Applicati on TOP BID No Start Date 07/21/2012 Inactive vitamin K16-akriu acid sublingual RxNorm: sublingual No Start Date 07/05/2013 Inactive cyclobenzaprine 5 mg tablet RxNorm: 412929 1/2-1 Tablet (s) PO TID as needed for muscle spasm No Start Date 07/18/2017 Inactive tramadol 50 mg tablet RxNorm: 955527 2 Tablet(s) PO TID as need ed for pain No Start Date 09/01/2014 Inactive aspirin 81 mg Tab RxNorm: 564163 1 Tablet(s) PO QOD No Start Date 04/2013 Inactive Vitamin B12 1000mcg Tablet RxNorm: 1 Tablet(s) PO QD No Start Date 07/18/2017 Inactive cholestyramine (with sugar) 4 gram oral powder RxNorm: 43072 3 1 Unit(s) PO QD as needed No Start Date 05/20/2018 Inactive ProAir HFA 90 mcg/Actuation Aerosol Inhaler RxNorm: 415229 2 Puff(s) INH Q4H prn shortness of breath No Start Date 07/21/2012 Inactive pravastatin 10 mg Tab RxNorm: 880632 1 Tablet(s) PO QD No Start Date 07/21/2012 Inactive gabapentin 800 mg Tab RxNorm: 797128 1 Tablet(s) PO BID No Start Da te 06/03/2011 Inactive Endocet 10 mg-325 mg Tab RxNorm: 4965079 1 Tablet(s) PO TID No Star t Date 06/02/2009 Inactive Naproxen 500 mg Tab RxNorm: 918541 1 Tablet(s) PO BID No Start Date 0 04/05/2010 Inactive Valium 10 mg Tab RxNorm: 305171 1 Tablet(s) PO BID No Start Date 07/04 Inactive enalapril maleate 5 mg Tab RxNorm: 804819 1 Tablet(s) PO QD No Star t Date 11/15/2010 Inactive doxepin 10 mg capsule RxNorm: 3869539 2 Capsule(s) PO QHS No Start Date 09/17/2018 Inactive MS Contin 15 mg Tab RxNorm: 752054 1 Tablet(s) PO BID No Start Date 0 09/18/2010 Inactive buspirone 5 mg tablet RxNorm: 036540 1 Tablet(s) PO TID No Start Da te 12/01/2013 Inactive [place] 3 Fish Oil Cap RxNorm: 1 Capsule(s) PO QD No Start Date 07/03 Inactive enalapril maleate 5 mg Tab RxNorm: 139289 1/2 Tablet(s) PO QD No St art Date 03/07/2011 Inactive Lyrica 75 mg capsule RxNorm: 498668 1 Capsule(s) PO QHS No Start Da te 02/08/2014 Inactive Lopressor 100 mg tablet RxNorm: 707491 1 Tablet(s) PO BID No Start Date 06/08/2018 Inactive Lantus Solostar U-100 Insulin 100 unit/mL (3 mL) subcu taneous pen RxNorm: 173927 45 Unit(s) SQ QAM No Start Date 05/20/2018 Inactive aspirin 81 mg tablet RxNorm: 561678 1 Tablet(s) PO QD No Start Date 0 09/14/2015 Inactive diltiazem CD 240 mg capsule,extended release 24 hr RxNorm: 8 61861 1 Capsule(s) PO QD No Start Date 05/25/2019 Inactive insulin NPH isophane U-100 human subcutaneous RxNorm: 232477 beckwith bcutaneous No Start Date 04/20/2019 Inactive sumatriptan 100 mg tablet RxNorm: 198317 1 Tablet(s) PO at headache onset. May repeat 1 in two hours if headache remains. Max of 2 per 24 hours No Start Date 04/01/2018 Inactive gabapentin 300 mg capsule RxNorm: 507572 1 Capsule(s) PO QHS No Sta rt Date 02/04/2018 Inactive Topamax 25 mg Tab RxNorm: 857777 Oral No Start Date 03/07/2011 In active Senokot-S 8.6 mg-50 mg Tab RxNorm: 3877294 1 Tablet(s) PO QD No Sta rt Date 03/07/2011 Inactive metformin ER 500 mg 24 hr tablet,extended release RxNorm: 18 19663 1 Tablet(s) PO QD No Start Date 05/20/2018 Inactive Symbicort 80 mcg-4.5 mcg/actuation HFA Aerosol Inhaler RxNor m: 8411373 2 Puff(s) INH BID No Start Date 04/05/2013 Inactive metoprolol tartrate 25 mg tablet RxNorm: 164751 1 Tablet(s) PO BID No Start Date 05/20/2019 Inactive propranolol 60 mg Tab RxNorm: 284947 1/2 Tablet(s) PO BID No Start Date 07/21/2012 Inactive metformin ER 500 mg 24 hr tablet,extended release RxNorm: 18 16442 2 Tablet(s) PO QD No Start Date 12/16/2017 Inactive Insulin Syringe 1 mL 29 gauge x 1/2" RxNorm: 2 s yringes daily with insulin Dx: E11.65 No Start Date 10/07/2018 Inactive Amitriptyline 75 mg Tab RxNorm: 002573 1 Tablet(s) PO QHS No Start Date 10/23/2009 Inactive donepezil 10 mg Tab RxNorm: 121185 1 Tablet(s) PO QD No Start Date Inactive Lantus Solostar U-100 Insulin 100 unit/mL (3 mL) subcu taneous pen RxNorm: 882317 36 Unit(s) SQ QAM No Start Date 12/24/2017 Inactive Miacalcin 200 unit/Actuation Nasal [place] Aerosol RxNorm: 261 204 1 [place] NASAL QD Alternate nostrils each day No Start Date 04/05/2010 Inactive Amitriptyline 150 mg Tab RxNorm: 059486 1 Tablet(s) PO QHS No Start Date 01/04/2010 Inactive Bystolic 5 mg tablet RxNorm: 032457 1 Tablet(s) PO QD No Start Date 0 08/13/2012 Inactive Aricept 10 mg Tab RxNorm: 382744 1 Tablet(s) PO QD No Start Date 11/03 Inactive Lantus Solostar U-100 Insulin 100 unit/mL (3 mL) subcu taneous pen RxNorm: 997122 50 Unit(s) SQ QAM No Start Date 08/27/2018 Inactive albuterol sulfate 2.5 mg/3 mL (0.083 %) Neb Solution RxNorm: 208154 1 Unit Dose INH QID as needed No Start Date 08/23/2015 Inactive Symbicort 160 mcg-4.5 mcg/actuation HFA Aerosol Inhaler RxNo rm: 5945360 2 Puff(s) INH BID No Start Date 12/03/2011 Inactive Savella 50 mg Tab RxNorm: 842172 1 Tablet(s) PO BID No Start Date 04/2010 Inactive amitriptyline 100 mg Tab RxNorm: 105868 1 1/2 Tablet(s) PO QHS No S tart Date 06/19/2011 Inactive nystatin 100,000 unit/g Topical Cream RxNorm: 045246 Ap plication TOP BID to rash for 2-4 weeks No Start Date 01/14/2011 Inactive Trelegy Ellipta 100 mcg-62.5 mcg-25 mcg powder for inhalatio n RxNorm: 1225400 1 Puff(s) INH QD No Start Date 12/16/2017 Inactive Lyrica 150 mg capsule RxNorm: 193537 1 Capsule(s) PO QHS No Start D ate 12/04/2015 Inactive sennosides 8.6 mg tablet RxNorm: 042755 1 Tablet(s) PO BID No Start Date 09/07/2018 Inactive metformin ER 500 mg tablet,extended release 24 hr RxNorm: 86 0975 1 Tablet(s) PO QD No Start Date 10/22/2017 Inactive Fish Oil 1,000 mg Cap RxNorm: 1 Capsule(s) PO QD No Start Date 06/2011 Inactive Zyrtec 10 mg Tab RxNorm: 1982984 1 Tablet(s) PO QD No Start Date 07/03 Inactive albuterol sulfate HFA 90 mcg/actuation aerosol inhaler RxNor m: 4747678 2 Puff(s) INH Q4H as needed for cough No Start Date 09/30/2013 Inactive trazodone 150 mg tablet RxNorm: 432247 1 Tablet(s) PO QHS No Start Date 07/21/2012 Inactive Spiriva with HandiHaler 18 mcg & inhalation capsules RxNorm: 107473 1 Capsule(s) INH QD No Start Date 04/05/2013 Inactive Coreg 3.125 mg Tab RxNorm: 208269 1 Tablet(s) PO BID No Start Date Inactive Phenergan 25 mg Tab RxNorm: 750810 Tablet(s) PO PRN MIGRAINE No Sta rt Date 11/21/2009 Inactive Vitamin D 50,000 unit Cap RxNorm: 0139712 1 Capsule(s) PO QW No Sta rt Date 03/07/2011 Inactive Januvia 100 mg tablet RxNorm: 784254 1 Tablet(s) PO QD No Start Date 10/25/2015 Inactive Eliquis 5 mg tablet RxNorm: 6901901 1 Tablet(s) PO BID No Start Date 08/19/2018 Inactive Advair Diskus 500 mcg-50 mcg/Dose for Inhalation RxNorm: 545249 1 INH BID No Start Date 07/21/2012 Inactive Vitamin D3 5,000 unit tablet RxNorm: 766513 1 Tablet(s) PO QD No St art Date 07/18/2017 Inactive Amaryl 2 mg tablet RxNorm: 625907 1 Tablet(s) PO QD No Start Date 06/2015 Inactive Actos 30 mg tablet RxNorm: 216478 1 Tablet(s) PO QD No Start Date Inactive promethazine 25 mg tablet RxNorm: 949966 1 Tablet(s) PO Q4H prn N/V No Start Date 07/21/2012 Inactive ProAir HFA 90 mcg/actuation Aerosol Inhaler RxNorm: 603932 2 Puff(s) INH Q4H prn dyspnea No Start Date 07/21/2012 Inactive Dexilant 60 mg Capsule RxNorm: 553874 1 Capsule(s) PO QD No Start D ate 01/27/2012 Inactive Lantus Solostar U-100 Insulin 100 unit/mL (3 mL) subcu taneous pen RxNorm: 588092 38 Unit(s) SQ QAM No Start Date 05/20/2018 Inactive Valium 10 mg Tab RxNorm: 696744 1 Tablet(s) PO QHS AND PRN No Start Date 10/24/2009 Inactive ZOFRAN ODT 8 mg disintegrating tablet RxNorm: 808204 1 Tablet(s ) PO Q6H No Start [...] Date S ervice Location MICROALBUMIN URINE RANDOM 20060 MICRL MG/L 14.9 MG/L Unknown MICROALBUMIN URINE RANDOM 92613 XM.ALB/CRE 6.1 MG/GCR Unknown MICROALBUMIN URINE RANDOM 72227 CREAT MG/D 243 MG/DL Unknown MICROALBUMIN URINE RANDOM 15675 CRE/100 2.43 G/L 03/05 Unknown PROTEIN/CREAT URINE WITH RATIO 68035|44849 PROT R U 14 MG/D L 04/01/2014 Unknown PROTEIN/CREAT URINE WITH RATIO 55618|61737 CREAT R U 254 MG/ DL 04/01/2014 Unknown PROTEIN/CREAT URINE WITH RATIO 16514|27143 XRATIO P/C 55 MG/ G 04/01/2014 Unknown URINALYSIS 66845 PROTEIN UR NEG 04/28/2010 Unknown URINALYSIS 52930 HEMGLBN UR NEG 04/28/2010 Unknown URINALYSIS 66602 GLUCOSE UR NEG 04/28/2010 Unknown URINALYSIS 93186 KETONES UR NEG 04/28/2010 Unknown URINALYSIS 87638 PH U 5.5 04/28/2010 Unknown URINALYSIS 33162 SP GR U 1.025 04/28/2010 Unknown URINALYSIS 34021 BILRUBN UR NEG 04/28/2010 Unknown URINALYSIS 16568 LEUKO UR 2+ 04/28/2010 Unknown URINALYSIS 24906 NITRITE UR NEG 04/28/2010 Unknown MICR CUL? [id number] WBC/HPF 6-10 04/28/2010 Unknown MICR CUL? [id number] RBC/HPF 0-5 04/28/2010 Unknown MICR CUL? [id number] HYAL CAST 16-25 04/28/2010 Unknown MICR CUL? [id number] SP TO YOLIE? NO 04/28/2010 Unknown MICR CUL? [id number] APPEAR UR NORMAL 04/28/2010 Unknown MICR CUL? [id number] SQ EPI/LPF FEW 04/28/2010 Unknown Procedures Procedure Codes Date URINALYSIS NONAUTO W/O SCOPE CPT-4: 30214 04/16/2019 URINE CULTURE/ COLONY COUNT CPT-4: 59039 04/16/2019 CEFTRIAXONE SODIUM INJECTION CPT-4: J0696 04/16/2019 THER/PROPH/DIAG INJ SC/IM CPT-4: 23995 04/16/2019 DRAIN/INJECT JOINT/BURSA CPT-4: 52091 01/22/2019 TRIAMCINOLONE ACET INJ NOS CPT-4: J3301 01/22/2019 DEXAMETHASONE SODIUM PHOS CPT-4: J1100 01/22/2019 URINE CULTURE/ COLONY COUNT CPT-4: 04932 01/07/2019 URINALYSIS NONAUTO W/O SCOPE CPT-4: 46562 01/07/2019 CEFTRIAXONE SODIUM INJECTION CPT-4: J0696 01/07/2019 THER/PROPH/DIAG INJ SC/IM CPT-4: 85516 01/07/2019 FLU VACC PRSV FREE INC ANTIG 65 AND OLDER CPT-4: 56214 12/24/2018 FLU VACC PRSV FREE INC ANTIG 65 AND OLDER CPT-4: 76086 12/24/2018 ADMIN INFLUENZA VIRUS VAC CPT-4: G0008 12/24/2018 THER/PROPH/DIAG INJ SC/IM CPT-4: 79770 11/04/2018 KETOROLAC TROMETHAMINE INJ CPT-4: J1885 11/04/2018 PROMETHAZINE HCL INJECTION CPT-4: J2550 11/04/2018 PPPS, subseq visit CPT-4: G0439 09/18/2018 THER/PROPH/DIAG INJ SC/IM CPT-4: 76684 04/01/2018 KETOROLAC TROMETHAMINE INJ CPT-4: J1885 04/01/2018 PROMETHAZINE HCL INJECTION CPT-4: J2550 04/01/2018 URINE CULTURE/ COLONY COUNT CPT-4: 31548 03/17/2018 URINALYSIS NONAUTO W/O SCOPE CPT-4: 52499 03/17/2018 FLU VACC PRSV FREE INC ANTIG 65 AND OLDER CPT-4: 49721 12/17/2017 PNEUMOCOCCAL VACC 23 RANDALL IM CPT-4: 36880 12/17/2017 ADMIN INFLUENZA VIRUS VAC CPT-4: G0008 12/17/2017 ADMIN PNEUMOCOCCAL VACCINE CPT-4: G0009 12/17/2017 PPPS, subseq visit CPT-4: G0439 09/17/2017 THER/PROPH/DIAG INJ SC/IM CPT-4: 95513 08/26/2017 KETOROLAC TROMETHAMINE INJ CPT-4: J1885 08/26/2017 PROMETHAZINE HCL INJECTION CPT-4: J2550 08/26/2017 URINALYSIS NONAUTO W/O SCOPE CPT-4: 74915 07/19/2017 URINE CULTURE/ COLONY COUNT CPT-4: 28437 07/19/2017 CEFTRIAXONE SODIUM INJECTION CPT-4: J0696 07/19/2017 THER/PROPH/DIAG INJ SC/IM CPT-4: 49977 07/19/2017 THER/PROPH/DIAG INJ SC/IM CPT-4: 43290 07/19/2017 TRIAMCINOLONE ACET INJ NOS CPT-4: J3301 07/19/2017 PRESCRIP TRANSMIT VIA ERX SY CPT-4: G8553 05/07/2017 PRESCRIP TRANSMIT VIA ERX SY CPT-4: G8553 02/22/2017 PRESCRIP TRANSMIT VIA ERX SY CPT-4: G8553 01/23/2017 FLU VACC PRSV FREE INC ANTIG 65 AND OLDER CPT-4: 31557 12/20/2016 PNEUMOCOCCAL VACC 13 RANDALL IM CPT-4: 65438 12/20/2016 ADMIN INFLUENZA VIRUS VAC CPT-4: G0008 12/20/2016 ADMIN PNEUMOCOCCAL VACCINE CPT-4: G0009 12/20/2016 URINALYSIS NONAUTO W/O SCOPE CPT-4: 55245 10/08/2016 URINE CULTURE/ COLONY COUNT CPT-4: 41945 10/08/2016 PRESCRIP TRANSMIT VIA ERX SY CPT-4: G8553 10/08/2016 PRESCRIP TRANSMIT VIA ERX SY CPT-4: G8553 09/19/2016 PRESCRIP TRANSMIT VIA ERX SY CPT-4: G8553 08/20/2016 PRESCRIP TRANSMIT VIA ERX SY CPT-4: G8553 02/29/2016 KETOROLAC TROMETHAMINE INJ CPT-4: J1885 02/02/2016 THER/PROPH/DIAG INJ SC/IM CPT-4: 44349 02/02/2016 PROMETHAZINE HCL INJECTION CPT-4: J2550 02/02/2016 PRESCRIP TRANSMIT VIA ERX SY CPT-4: G8553 02/02/2016 FLU VACC PRSV FREE INC ANTIG 65 AND OLDER CPT-4: 05446 01/05/2016 PPPS, subseq visit CPT-4: G0439 01/05/2016 ADMIN INFLUENZA VIRUS VAC CPT-4: G0008 01/05/2016 URINE CULTURE/ COLONY COUNT CPT-4: 86460 12/05/2015 URINALYSIS NONAUTO W/O SCOPE CPT-4: 87587 12/05/2015 PRESCRIP TRANSMIT VIA ERX SY CPT-4: G8553 12/05/2015 PRESCRIP TRANSMIT VIA ERX SY CPT-4: G8553 10/26/2015 URINALYSIS NONAUTO W/O SCOPE CPT-4: 31336 10/05/2015 URINE CULTURE/ COLONY COUNT CPT-4: 85742 10/05/2015 PRESCRIP TRANSMIT VIA ERX SY CPT-4: G8553 10/05/2015 SERVICE REQUIRED FOR PMD CPT-4: G0372 09/15/2015 PRESCRIP TRANSMIT VIA ERX SY CPT-4: G8553 09/15/2015 SPECIAL REPORTS OR FORMS CPT-4: 49408 08/25/2015 PRESCRIP TRANSMIT VIA ERX SY CPT-4: G8553 07/05/2015 URINALYSIS NONAUTO W/O SCOPE CPT-4: 01258 03/30/2015 ASSAY, GLUCOSE, BLOOD QUANT CPT-4: 23217 03/30/2015 URINE CULTURE/ COLONY COUNT CPT-4: 52723 03/30/2015 PRESCRIP TRANSMIT VIA ERX SY CPT-4: G8553 03/30/2015 PRESCRIP TRANSMIT VIA ERX SY CPT-4: G8553 02/03/2015 FLU VACC PRSV FREE INC ANTIG 65 AND OLDER CPT-4: 15961 12/29/2014 ADMIN INFLUENZA VIRUS VAC CPT-4: G0008 12/29/2014 PRESCRIP TRANSMIT VIA ERX SY CPT-4: G8553 12/29/2014 PRESCRIP TRANSMIT VIA ERX SY CPT-4: G8553 09/02/2014 PROTEIN/CREAT URINE WITH RATIO CPT-4: 70935|14845 5 MICROALBUMIN QUANTITATIVE CPT-4: 19099 04/01/2014 PRESCRIP TRANSMIT VIA ERX SY CPT-4: G8553 03/16/2014 PRESCRIP TRANSMIT VIA ERX SY CPT-4: G8553 03/09/2014 THER/PROPH/DIAG INJ SC/IM CPT-4: 28748 03/01/2014 TRIAMCINOLONE ACET INJ NOS CPT-4: J3301 03/01/2014 PRESCRIP TRANSMIT VIA ERX SY CPT-4: G8553 02/09/2014 URINE CULTURE/ COLONY COUNT CPT-4: 32844 10/30/2013 URINALYSIS NONAUTO W/O SCOPE CPT-4: 52181 10/21/2013 URINE CULTURE/ COLONY COUNT CPT-4: 66882 10/21/2013 DESTRUCT PREMALG LESION (Cryosurgery) CPT-4: 26458 PRESCRIP TRANSMIT VIA ERX SY CPT-4: G8553 10/05/2013 URINALYSIS NONAUTO W/O SCOPE CPT-4: 54749 08/04/2013 URINE CULTURE/ COLONY COUNT CPT-4: 92941 08/04/2013 PRESCRIP TRANSMIT VIA ERX SY CPT-4: G8553 08/04/2013 THER/PROPH/DIAG INJ SC/IM CPT-4: 42854 07/13/2013 TRIAMCINOLONE ACET INJ NOS CPT-4: J3301 07/13/2013 PRESCRIP TRANSMIT VIA ERX SY CPT-4: G8553 05/27/2013 URINALYSIS NONAUTO W/O SCOPE CPT-4: 26126 05/25/2013 URINE CULTURE/ COLONY COUNT CPT-4: 29704 05/25/2013 THER/PROPH/DIAG INJ SC/IM CPT-4: 64266 05/04/2013 VITAMIN B12 INJECTION CPT-4: J3420 05/04/2013 THER/PROPH/DIAG INJ SC/IM CPT-4: 71661 04/17/2013 VITAMIN B12 INJECTION CPT-4: J3420 04/17/2013 THER/PROPH/DIAG INJ SC/IM CPT-4: 72611 04/17/2013 METHYLPREDNISOLONE 40 MG INJ CPT-4: J1030 04/17/2013 TRIAMCINOLONE ACET INJ NOS CPT-4: J3301 04/17/2013 URINALYSIS NONAUTO W/O SCOPE CPT-4: 64764 04/06/2013 URINE CULTURE/ COLONY COUNT CPT-4: 16353 04/06/2013 PRESCRIP TRANSMIT VIA ERX SY CPT-4: G8553 04/06/2013 KETOROLAC TROMETHAMINE INJ CPT-4: J1885 06/25/2012 PROMETHAZINE HCL INJECTION CPT-4: J2550 06/25/2012 THER/PROPH/DIAG INJ SC/IM CPT-4: 19246 06/25/2012 THER/PROPH/DIAG INJ SC/IM CPT-4: 71089 06/24/2012 METHYLPREDNISOLONE 40 MG INJ CPT-4: J1030 06/24/2012 TRIAMCINOLONE ACET INJ NOS CPT-4: J3301 06/24/2012 URINE CULTURE/ COLONY COUNT CPT-4: 51027 06/24/2012 THER/PROPH/DIAG INJ SC/IM CPT-4: 47362 05/20/2012 KETOROLAC TROMETHAMINE INJ CPT-4: J1885 05/20/2012 THER/PROPH/DIAG INJ SC/IM CPT-4: 46370 05/20/2012 PROMETHAZINE HCL INJECTION CPT-4: J2550 05/20/2012 DRAIN/INJECT JOINT/BURSA CPT-4: 10333 02/13/2012 METHYLPREDNISOLONE 40 MG INJ CPT-4: J1030 02/13/2012 TRIAMCINOLONE ACET INJ NOS CPT-4: J3301 02/13/2012 THER/PROPH/DIAG INJ SC/IM CPT-4: 79984 11/14/2011 METHYLPREDNISOLONE 40 MG INJ CPT-4: J1030 11/14/2011 TRIAMCINOLONE ACET INJ NOS CPT-4: J3301 11/14/2011 THER/PROPH/DIAG INJ SC/IM CPT-4: 31304 09/12/2011 KETOROLAC TROMETHAMINE INJ CPT-4: J1885 09/12/2011 THER/PROPH/DIAG INJ SC/IM CPT-4: 26557 08/09/2011 METHYLPREDNISOLONE 40 MG INJ CPT-4: J1030 08/09/2011 TRIAMCINOLONE ACET INJ NOS CPT-4: J3301 08/09/2011 URINE CULTURE/ COLONY COUNT CPT-4: 75075 07/03/2011 URINE CULTURE/ COLONY COUNT CPT-4: 50283 06/04/2011 THER/PROPH/DIAG INJ SC/IM CPT-4: 09880 05/03/2011 METHYLPREDNISOLONE 40 MG INJ CPT-4: J1030 05/03/2011 TRIAMCINOLONE ACET INJ NOS CPT-4: J3301 05/03/2011 URINALYSIS NONAUTO W/O SCOPE CPT-4: 59327 01/24/2011 URINE CULTURE/ COLONY COUNT CPT-4: 37483 01/24/2011 FLUZONE, 5ML (Medicare) CPT-4: Q2038 01/02/2011 ADMIN INFLUENZA VIRUS VAC CPT-4: G0008 01/02/2011 ASSAY, GLUCOSE, BLOOD QUANT CPT-4: 09027 12/07/2010 URINE CULTURE/ COLONY COUNT CPT-4: 47461 11/02/2010 THER/PROPH/DIAG INJ SC/IM CPT-4: 78550 10/18/2010 METHYLPREDNISOLONE 40 MG INJ CPT-4: J1030 10/18/2010 TRIAMCINOLONE ACET INJ NOS CPT-4: J3301 10/18/2010 TRIAMCINOLONE ACET INJ NOS CPT-4: J3301 05/11/2010 METHYLPREDNISOLONE 40 MG INJ CPT-4: J1030 05/11/2010 THER/PROPH/DIAG INJ SC/IM CPT-4: 96483 05/11/2010 TRIAMCINOLONE ACET INJ NOS CPT-4: J3301 02/09/2010 METHYLPREDNISOLONE 40 MG INJ CPT-4: J1030 02/09/2010 THER/PROPH/DIAG INJ SC/IM CPT-4: 65746 02/09/2010 SERVICE REQUIRED FOR PMD CPT-4: G0372 02/09/2010 FLU VACCINE 3 YRS & > IM UP 64 CPT-4: 64655 0 PNEUMOCOCCAL VACC 23 RANDALL IM CPT-4: 87902 12/07/2009 ADMIN INFLUENZA VIRUS VAC CPT-4: G0008 12/07/2009 ADMIN PNEUMOCOCCAL VACCINE CPT-4: G0009 12/07/2009 TRIAMCINOLONE ACET INJ NOS CPT-4: J3301 05/26/2009 THER/PROPH/DIAG INJ SC/IM CPT-4: 98309 05/26/2009 METHYLPREDNISOLONE 80 MG INJ CPT-4: J1040 [...] 1: 114/72 Code: 8480-6 BMI: 37.8 Code: 54873-5 Heart Rate 1: 72 bpm Height: 5'3" [...] 1: 106/68 Code: 8480-6 BMI: 35.7 Code: 72741-3 Heart Rate 1: 72 bpm Height: 5'4" Respiratory Rate: 20 bpm SpO2: 98% Tempera ture: 36.7 (C) / 98.0 (F) Weight: 208 lbs 04/16/2018 Blood Pressure 1: 132/82 Code: 8480-6 BMI: 37.9 Code: 94658-0 Heart Rate 1: 72 bpm Height: 5'4" Respiratory Rate: 20 bpm SpO2: 96% Tempera ture: 37.1 (C) / 98.8 (F) Weight: 221 lbs 04/01/2018 Blood Pressure 1: 150/90 Code: 8480-6 Heart Rate 1: 72 bpm Respiratory Rate: 22 bpm SpO2: 95% Temperature: 36.4 (C) / 97.6 (F) We ight: 216 lbs 03/06/2018 Blood Pressure 1: 126/78 Code: 8480-6 BMI: 37.4 Code: 24400-4 Heart Rate 1: 68 bpm Height: 5'4" [...] ight: 222 lbs 12/25/2017 BMI: 37.8 Code: 81061-1 Heart Rate 1: 76 bpm Height: 5 '4" Respiratory Rate: 20 bpm SpO2: 96% Temperature: 37.3 (C) / 99.2 (F) Weight: 220 lbs 12/17/2017 Blood Pressure 1: 132/78 Code: 8480-6 BMI: 37.2 Code: 54855-1 Heart Rate 1: 88 bpm Height: 5'4" Respiratory Rate: 20 bpm SpO2: 96% Tempera ture: 37.3 (C) / 99.2 (F) Weight: 217 lbs 10/30/2017 Blood Pressure 1: 114/68 Code: 8480-6 BMI: 36.4 Code: 86008-6 Heart Rate 1: 72 bpm Height: 5'4" Respiratory Rate: 22 bpm SpO2: 96% Tempera ture: 36.8 (C) / 98.2 (F) Weight: 212 lbs 10/23/2017 Blood Pressure 1: 124/78 Code: 8480-6 Heart Rate 1: 72 bpm Respiratory Rate: 24 bpm SpO2: 94% Temperature: 36.6 (C) / 97.9 (F) We ight: 212 lbs 09/17/2017 Blood Pressure 1: 128/82 Code: 8480-6 BMI: 37.4 Code: 34820-5 Heart Rate 1: 72 bpm Height: 5'4" Respiratory Rate: 20 bpm SpO2: 96% Tempera ture: 37.0 (C) / 98.6 (F) Weight: 218 lbs 07/19/2017 Blood Pressure 1: 136/84 Code: 8480-6 BMI: 36.6 Code: 78292-8 Heart Rate 1: 88 bpm Height: 5'4" Respiratory Rate: 20 bpm SpO2: 97% Tempera ture: 36.7 (C) / 98.0 (F) Weight: 213 lbs 05/29/2017 Blood Pressure 1: 136/82 Code: 8480-6 BMI: 36.7 Code: 18680-6 Heart Rate 1: 72 bpm Height: 5'4" Respiratory Rate: 20 bpm SpO2: 97% Tempera ture: 36.9 (C) / 98.4 (F) Weight: 214 lbs 05/07/2017 Blood Pressure 1: 122/80 Code: 8480-6 BMI: 37.1 Code: 21947-8 Heart Rate 1: 80 bpm Height: 5'4" Respiratory Rate: 24 bpm SpO2: 96% Tempera ture: 36.1 (C) / 97.0 (F) Weight: 216 lbs 03/18/2017 BMI: 36.7 Code: 61755-4 Heart Rate 1: 80 bpm Height: 5 '4" Respiratory Rate: 22 bpm SpO2: 95% Temperature: 36.9 (C) / 98.4 (F) Weight: 214 lbs 02/27/2017 Blood Pressure 1: 146/94 Code: 8480-6 BMI: 36.6 Code: 05304-3 Heart Rate 1: 76 bpm Height: 5'4" Respiratory Rate: 22 bpm SpO2: 97% Tempera ture: 36.6 (C) / 97.9 (F) Weight: 213 lbs 02/22/2017 Blood Pressure 1: 126/90 Code: 8480-6 BMI: 36.4 Code: 31820-9 Heart Rate 1: 84 bpm Height: 5'4" Respiratory Rate: 22 bpm SpO2: 95% Tempera ture: 36.9 (C) / 98.4 (F) Weight: 212 lbs 01/23/2017 Blood Pressure 1: 146/82 Code: 8480-6 BMI: 37.6 Code: 23402-1 Heart Rate 1: 96 bpm Height: 5'4" Respiratory Rate: 20 bpm SpO2: 96% Tempera ture: 36.9 (C) / 98.4 (F) Weight: 219 lbs 12/20/2016 Blood Pressure 1: 126/70 Code: 8480-6 BMI: 37.2 Code: 91476-3 Heart Rate 1: 76 bpm Height: 5'4" Respiratory Rate: 22 bpm SpO2: 95% Tempera ture: 36.6 (C) / 97.8 (F) Weight: 217 lbs 10/08/2016 Blood Pressure 1: 128/82 Code: 8480-6 BMI: 36.9 Code: 77588-8 Heart Rate 1: 76 bpm Height: 5'4" Respiratory Rate: 20 bpm SpO2: 95% Tempera ture: 37.0 (C) / 98.6 (F) Weight: 215 lbs 09/19/2016 Blood Pressure 1: 144/78 Code: 8480-6 BMI: 37.8 Code: 79948-8 Heart Rate 1: 76 bpm Height: 5'4" Respiratory Rate: 22 bpm SpO2: 95% Tempera ture: 37.0 (C) / 98.6 (F) Weight: 220 lbs 08/20/2016 Blood Pressure 1: 140/86 Code: 8480-6 BMI: 37.4 Code: 03455-9 Heart Rate 1: 80 bpm Height: 5'4" Respiratory Rate: 20 bpm SpO2: 95% Tempera ture: 36.9 (C) / 98.4 (F) Weight: 218 lbs 06/19/2016 Blood Pressure 1: 124 Code: 8480-6 BMI: 37.8 Code: 11081-1 Heart Rate 1: 74 bpm Height: 5'4" Respiratory Rate: 24 bpm SpO2: 96% Tempera ture: 36.9 (C) / 98.4 (F) Weight: 220 lbs 06/04/2016 Blood Pressure 1: 124 Code: 8480-6 BMI: 38.8 Code: 71707-9 Heart Rate 1: 72 bpm Height: 5'4" Respiratory Rate: 24 bpm SpO2: 95% Tempera ture: 36.8 (C) / 98.2 (F) Weight: 226 lbs 05/02/2016 Blood Pressure 1: 136/90 Code: 8480-6 BMI: 37.6 Code: 28021-9 Heart Rate 1: 72 bpm Height: 5'4" Respiratory Rate: 24 bpm SpO2: 96% Tempera ture: 36.9 (C) / 98.4 (F) Weight: 219 lbs 04/03/2016 Blood Pressure 1: 126/78 Code: 8480-6 BMI: 38.1 Code: 45094-6 Heart Rate 1: 72 bpm Height: 5'4" Respiratory Rate: 22 bpm SpO2: 94% Tempera ture: 36.9 (C) / 98.4 (F) Weight: 222 lbs 02/29/2016 Blood Pressure 1: 132/78 Code: 8480-6 Heart Rate 1: 78 bpm Height: Respiratory Rate: 24 bpm SpO2: 95% Temperature: 36.4 (C) / 97.6 (F) We ight: 02/02/2016 Blood Pressure 1: 12478 Code: 8480-6 BMI: 37.6 Code: 18033-4 Heart Rate 1: 76 bpm Height: 5'4" Respiratory Rate: 20 bpm SpO2: 95% Tempera ture: 36.8 (C) / 98.2 (F) Weight: 219 lbs 01/05/2016 Blood Pressure 1: 126/70 Code: 8480-6 BMI: 37.1 Code: 76879-0 Heart Rate 1: 76 bpm Height: 5'4" Respiratory Rate: 20 bpm Temperature: 36 .6 (C) / 97.8 (F) Weight: 216 lbs 12/05/2015 Blood Pressure 1: 126/72 Code: 8480-6 BMI: 36.9 Code: 05732-4 Heart Rate 1: 92 bpm Height: 5'4" Respiratory Rate: 20 bpm Temperature: 36 .7 (C) / 98.1 (F) Weight: 215 lbs 10/26/2015 Blood Pressure 1: 142/80 Code: 8480-6 BMI: 36.4 Code: 11294-5 Heart Rate 1: 82 bpm Height: 5'4" Respiratory Rate: 24 bpm SpO2: 92% Tempera ture: 35.9 (C) / 96.7 (F) Weight: 212 lbs 10/05/2015 Blood Pressure 1: 136/82 Code: 8480-6 Heart Rate 1: 80 bpm Respiratory Rate: 18 bpm SpO2: 98% Temperature: 35.7 (C) / 96.3 (F) We ight: 214 lbs 09/15/2015 Blood Pressure 1: 116/80 Code: 8480-6 BMI: 34.6 Code: 41721-5 Heart Rate 1: 76 bpm Height: 5'6" Respiratory Rate: 20 bpm Temperature: 36 .6 (C) / 97.9 (F) Weight: 211 lbs 08/24/2015 Blood Pressure 1: 124/80 Code: 8480-6 BMI: 34.1 Code: 06307-5 Heart Rate 1: 68 bpm Height: 5'6" Respiratory Rate: 20 bpm Temperature: 36 .8 (C) / 98.3 (F) Weight: 208 lbs 07/05/2015 Blood Pressure 1: 114/78 Code: 8480-6 BMI: 33.9 Code: 07203-8 Heart Rate 1: 80 bpm Height: 5'6" Respiratory Rate: 20 bpm Temperature: 36 .6 (C) / 97.9 (F) Weight: 207 lbs 06/06/2015 Blood Pressure 1: 122/78 Code: 8480-6 BMI: 34.1 Code: 98717-8 Heart Rate 1: 76 bpm Height: 5'6" Respiratory Rate: 24 bpm SpO2: 96% Tempera ture: 36.4 (C) / 97.6 (F) Weight: 208 lbs 05/23/2015 Blood Pressure 1: 124/78 Code: 8480-6 Heart Rate 1: 76 bpm Respiratory Rate: 24 bpm SpO2: 93% Temperature: 36.8 (C) / 98.2 (F) We ight: 212 lbs 05/05/2015 Blood Pressure 1: 136/80 Code: 8480-6 BMI: 35.4 Code: 66519-6 Heart Rate 1: 76 bpm Height: 5'6" Respiratory Rate: 28 bpm Temperature: 37 .0 (C) / 98.6 (F) Weight: 216 lbs 03/30/2015 Blood Pressure 1: 132/86 Code: 8480-6 BMI: 35.2 Code: 74589-9 Heart Rate 1: 84 bpm Height: 5'6" Respiratory Rate: 24 bpm Temperature: 36 .7 (C) / 98.0 (F) Weight: 215 lbs 02/03/2015 Blood Pressure 1: 122/74 Code: 8480-6 BMI: 35.7 Code: 52184-4 Heart Rate 1: 84 bpm Height: 5'6" Respiratory Rate: 20 bpm Temperature: 36 .9 (C) / 98.5 (F) Weight: 218 lbs 12/29/2014 Blood Pressure 1: 132/80 Code: 8480-6 BMI: 35.1 Code: 04510-4 Heart Rate 1: 80 bpm Height: 5'6" Respiratory Rate: 20 bpm Temperature: 36 .6 (C) / 97.8 (F) Weight: 214 lbs 09/02/2014 Blood Pressure 1: 128/92 Code: 8480-6 BMI: 34.7 Code: 82984-4 Heart Rate 1: 84 bpm Height: 5'6" Respiratory Rate: 26 bpm Temperature: 36 .8 (C) / 98.2 (F) Weight: 212 lbs 08/25/2014 Blood Pressure 1: 124/80 Code: 8480-6 BMI: 34.7 Code: 73785-5 Heart Rate 1: 78 bpm Height: 5'6" Respiratory Rate: 22 bpm SpO2: 97% Tempera ture: 36.6 (C) / 97.8 (F) Weight: 212 lbs 04/01/2014 Blood Pressure 1: 142/84 Code: 8480-6 BMI: 34.4 Code: 28513-0 Heart Rate 1: 74 bpm Height: 5'5" Respiratory Rate: 20 bpm Temperature: 36 .4 (C) / 97.6 (F) Weight: 207 lbs 03/16/2014 Blood Pressure 1: 142/90 Code: 8480-6 BMI: 34.6 Code: 92143-7 Heart Rate 1: 76 bpm Height: 5'5" Respiratory Rate: 24 bpm Temperature: 36 .5 (C) / 97.7 (F) Weight: 208 lbs 03/09/2014 Blood Pressure 1: 116/70 Code: 8480-6 BMI: 35.3 Code: 72067-8 Heart Rate 1: 72 bpm Height: 5'5" [...] 1: 128/86 Code: 8480-6 BMI: 34.3 Code: 38104-1 Heart Rate 1: 84 bpm Height: 5'5" Respiratory Rate: 20 bpm Temperature: 36 .7 (C) / 98.0 (F) Weight: 206 lbs 12/23/2013 Blood Pressure 1: 122/70 Code: 8480-6 BMI: 34.3 Code: 55465-9 Heart Rate 1: 68 bpm Height: 5'5" Respiratory Rate: 20 bpm Temperature: 36 .8 (C) / 98.2 (F) Weight: 206 lbs 10/05/2013 Blood Pressure 1: 118/76 Code: 8480-6 BMI: 34.1 Code: 67774-7 Heart Rate 1: 68 bpm Height: 5'5" Respiratory Rate: 20 bpm SpO2: 98% Tempera ture: 36.6 (C) / 97.9 (F) Weight: 205 lbs 08/04/2013 Blood Pressure 1: 126/82 Code: 8480-6 BMI: 33.3 Code: 02374-6 Heart Rate 1: 76 bpm Height: 5'5" Respiratory Rate: 20 bpm Temperature: 36 .8 (C) / 98.2 (F) Weight: 200 lbs 07/03/2013 Blood Pressure 1: 124/82 Code: 8480-6 BMI: 33.3 Code: 53200-2 Heart Rate 1: 72 bpm Height: 5'5" Respiratory Rate: 22 bpm Temperature: 36 .1 (C) / 97.0 (F) Weight: 200 lbs 05/27/2013 Blood Pressure 1: 126 Code: 8480-6 Heart Rate 1: 74 bpm Respiratory Rate: 20 bpm Temperature: 36.0 (C) / 96.8 (F) Weight: 199 lbs 04/06/2013 Blood Pressure 1: 118/80 Code: 8480-6 BMI: 35.2 Code: 45058-8 Heart Rate 1: 80 bpm Height: 5'4" Respiratory Rate: 20 bpm Temperature: 37 .4 (C) / 99.3 (F) Weight: 205 lbs 11/10/2012 Blood Pressure 1: 128/82 Code: 8480-6 Heart Rate 1: 84 bpm Respiratory Rate: 20 bpm Temperature: 36.7 (C) / 98.0 (F) Weight: 199 lbs 09/02/2012 Blood Pressure 1: 116/82 Code: 8480-6 BMI: 34.2 Code: 43918-4 Heart Rate 1: 88 bpm Height: 5'4" Respiratory Rate: 22 bpm Temperature: 36 .6 (C) / 97.8 (F) Weight: 199 lbs 08/04/2012 Blood Pressure 1: 128/74 Code: 8480-6 BMI: 34.0 Code: 02727-5 Heart Rate 1: 92 bpm Height: 5'4" Respiratory Rate: 20 bpm Temperature: 36 .4 (C) / 97.5 (F) Weight: 198 lbs 07/21/2012 Blood Pressure 1: 124/86 Code: 8480-6 Heart Rate 1: 116 bpm Respiratory Rate: 24 bpm Temperature: 36.8 (C) / 98.2 (F) 07/02/2012 Blood Pressure 1: 116/88 Code: 8480-6 BMI: 33.6 Code: 20280-2 Heart Rate 1: 76 bpm Height: 5'4" Respiratory Rate: 20 bpm Temperature: 36 .8 (C) / 98.3 (F) Weight: 196 lbs 06/24/2012 Blood Pressure 1: 124/80 Code: 8480-6 BMI: 34.3 Code: 05127-4 Heart Rate 1: 72 bpm Height: 5'4" SpO2: 96% Temperature: 36.3 (C) / 97.3 (F) Weight: 200 lbs 05/20/2012 Blood Pressure 1: 11688 Code: 8480-6 BMI: 33.8 Code: 70796-9 Heart Rate 1: 80 bpm Height: 5'4" Respiratory Rate: 22 bpm Temperature: 36 .9 (C) / 98.4 (F) Weight: 197 lbs 05/08/2012 Blood Pressure 1: 128/86 Code: 8480-6 BMI: 33.8 Code: 98357-1 Heart Rate 1: 76 bpm Height: 5'4" Respiratory Rate: 26 bpm SpO2: 95% Tempera ture: 36.1 (C) / 97.0 (F) Weight: 197 lbs 04/22/2012 Blood Pressure 1: 106/64 Code: 8480-6 BMI: 33.8 Code: 27396-3 Heart Rate 1: 70 bpm Height: 5'4" Temperature: 36.1 (C) / 97.0 (F) Weight: 197 lbs 02/13/2012 Blood Pressure 1: 126/82 Code: 8480-6 BMI: 34.7 Code: 83172-3 Heart Rate 1: 64 bpm Height: 5'4" Respiratory Rate: 20 bpm Temperature: 36 .6 (C) / 97.8 (F) Weight: 202 lbs 01/28/2012 Blood Pressure 1: 116/80 Code: 8480-6 BMI: 34.7 Code: 49148-7 Heart Rate 1: 76 bpm Height: 5'4" Respiratory Rate: 20 bpm Temperature: 36 .8 (C) / 98.3 (F) Weight: 202 lbs 12/26/2011 Blood Pressure 1: 132/82 Code: 8480-6 BMI: 36.0 Code: 46858-7 Heart Rate 1: 68 bpm Height: 5'4" Respiratory Rate: 22 bpm Temperature: 36 .7 (C) / 98.0 (F) Weight: 210 lbs 11/14/2011 Blood Pressure 1: 124/80 Code: 8480-6 BMI: 36.4 Code: 17104-9 Heart Rate 1: 76 bpm Height: 5'4" Respiratory Rate: 20 bpm Temperature: 36 .8 (C) / 98.2 (F) Weight: 212 lbs 09/12/2011 Blood Pressure 1: 108/74 Code: 8480-6 BMI: 37.1 Code: 61510-0 Heart Rate 1: 72 bpm Height: 5'4" Respiratory Rate: 20 bpm Temperature: 37 .0 (C) / 98.6 (F) Weight: 216 lbs 08/15/2011 Blood Pressure 1: 122/80 Code: 8480-6 BMI: 36.9 Code: 74386-6 Heart Rate 1: 76 bpm Height: 5'4" Respiratory Rate: 20 bpm Temperature: 36 .2 (C) / 97.1 (F) Weight: 215 lbs 08/09/2011 Blood Pressure 1: 112/78 Code: 8480-6 BMI: 36.9 Code: 16778-6 Heart Rate 1: 68 bpm Height: 5'4" Respiratory Rate: 20 bpm Temperature: 36 .7 (C) / 98.0 (F) Weight: 215 lbs 07/03/2011 Blood Pressure 1: 140/94 Code: 8480-6 BMI: 36.2 Code: 84519-4 Heart Rate 1: 68 bpm Height: 5'4" Temperature: 36.0 (C) / 96.8 (F) Weight: 211 lbs 06/04/2011 Blood Pressure 1: 124/70 Code: 8480-6 BMI: 36.7 Code: 56663-1 Heart Rate 1: 68 bpm Height: 5'4" Respiratory Rate: 20 bpm Temperature: 36 .6 (C) / 97.9 (F) Weight: 214 lbs 05/03/2011 Blood Pressure 1: 130/76 Code: 8480-6 BMI: 36.4 Code: 46678-6 Heart Rate 1: 74 bpm Height: 5'5" Temperature: 36.2 (C) / 97.2 (F) Weight: 219 lbs 04/05/2011 Blood Pressure 1: 124/86 Code: 8480-6 BMI: 35.9 Code: 00476-7 Heart Rate 1: 76 bpm Height: 5'6" Respiratory Rate: 22 bpm Temperature: 36 .3 (C) / 97.3 (F) Weight: 219 lbs 03/08/2011 Blood Pressure 1: 112/78 Code: 8480-6 BMI: 35.1 Code: 42376-1 Heart Rate 1: 80 bpm Height: 5'6" Respiratory Rate: 26 bpm Temperature: 36 .9 (C) / 98.4 (F) Weight: 214 lbs 01/24/2011 Blood Pressure 1: 110/82 Code: 8480-6 BMI: 35.6 Code: 63681-5 Heart Rate 1: 80 bpm Height: 5'6" Temperature: 36.1 (C) / 97.0 (F) Weight: 217 lbs 01/02/2011 Blood Pressure 1: 106/72 Code: 8480-6 BMI: 35.6 Code: 86130-4 Heart Rate 1: 76 bpm Height: 5'6" [...] 1: 120/74 Code: 8480-6 BMI: 35.9 Code: 90170-6 Heart Rate 1: 72 bpm Height: 5'5" Temperature: 36.3 (C) / 97.4 (F) Weight: 216 lbs 09/19/2010 Blood Pressure 1: 124/80 Code: 8480-6 BMI: 35.4 Code: 54693-0 Heart Rate 1: 76 bpm Height: 5'5" [...] 1: 122/78 Code: 8480-6 BMI: 37.4 Code: 65762-2 Heart Rate 1: 84 bpm Height: 5'5" [...] 10/30/2017 follow up 10/23/2017 Hospital fwup from [facility] Annual Checkup 09/17/2017 Wellness Physical fo r [...] up 10/26/2015 ER visit from at [facility] for COPD Exacerbation follow up 10/05/2015 ER Visit gait abnormality 09/15/2015 Patient requesting kelly pineda paperwork to be filled out disturbances of thinking 08/24/2015 follow up 07/05/2015 4wk fwup follow up 06/06/2015 [facility] cough 05/23/2015 follow up 05/05/2015 dyspnea 03/30/2015 [facility] needs new orde r for O2 abdominal pain 02/03/2015 cyst 12/29/2014 vs abscess follow up 09/02/2014 [facility] headache 08/25/2014 facial drooping follow up 04/01/2014 ER follow up 03/16/2014 1wk fwup follow up 03/09/2014 1mo fwup and bronchi tis fwup follow up 03/03/2014 2 day follow up 03/01/2014 ER follow up 02/09/2014 [facility] gastroesophageal reflux 12/23/2013 painful urination 10/30/2013 [...] up 08/04/2012 2wk fwup follow up 07/21/2012 [facility] an sore throat 07/02/2012 headache 06/25/2012 [...] up 10/18/[address] Medrano last w [facility], having increased allergy symptoms. Would like steroid [...] 1 month f/u follow up 12/07/2009 from [facility], done with PT--finished about 2wks ago follow up 11/08/2009 2wk fwup follow up 10/24/2009 hosp fwup ~generic 07/25/2009 bilateral earlobe re dness/swelling, pain radiating into neck, refill Demerol ~generic 05/26/2009 FALLING A LOT, SAVEL LA NOT HELPING FIBROMYALGIA PAIN, LT HAND LACERATION-FELL INTO NAIL 05/25/09 Encounters Encounter Performer Location Codes Date ([id number]) OFFICE/OUTPATIENT VISIT EST Diagnosis: Acute bronchitis[ICD10: J20.9] Diagnosis: Colitis[ICD10: K52.9] Belia REID [facility] CPT-4: 93049 06/16/2019 ([id number]) OFFICE/OUTPATIENT VISIT EST Diagnosis: Diarrhea[ICD10: R19.7] Diagnosis: Abdominal bloating[ICD10: R14.0] Belia Reid [facility] CPT- 4: 11222 06/08/2019 ([id number]) OFFICE/OUTPATIENT VISIT EST Diagnosis: Acute febrile illness[ICD10: R50.9] Diagnosis: Colitis[ICD10: K52.9] Belia Reid [facility] CPT-4: 70645 05/26/2019 ([id number]) OFFICE/OUTPATIENT VISIT EST Diagnosis: Chronic obstructive pulmonary disease, unspecified[ICD10: J44.9] Diagnosis: Pulmonary fibrosis[ICD10: J84.10] Diagnosis: Intermittent stridor[ICD10: R06.1] Diagnosis: Muscle weakness[ICD10: M62.81] Belia REID [facility] CPT-4: 32033 05/13/2019 ([id number]) OFFICE/OUTPATIENT VISIT EST Diagnosis: Stridor[ICD10: R06.1] Diagnosis: COUGH[ICD10: R05] Belia REID [facility] CPT-4: 31108 05/06/2019 ([id number]) OFFICE/OUTPATIENT VISIT EST Diagnosis: Stridor[ICD10: R06.1] Diagnosis: Muscle, jerky movements (uncontrolled)[ICD10: G25.5] Belia REID DO [facility] CPT-4: 64455 04/29/2019 ([id number]) OFFICE/OUTPATIENT VISIT EST Diagnosis: Upper respiratory infection[ICD10: J06.9] Diagnosis: Flank pain[ICD10: R10.9] Diagnosis: Weight gain[ICD10: R63.5] Pattie AMBRIZ [facility] CPT-4: 31029 04/16/2019 ([id number]) OFFICE/OUTPATIENT VISIT EST Diagnosis: Generalized pruritus[ICD10: L29.9] Belia REID [facility] CPT-4: 90935 04/08/2019 ([id number]) OFFICE/OUTPATIENT VISIT EST Diagnosis: Acute bursitis of left shoulder[ICD10: M75.52] Diagnosis: Cervicalgia[ICD10: M54.2] Diagnosis: Chest wall pain[ICD10: R07.89] Belia REID [facility] CPT-4: 31065 01/22/2019 ([id number]) OFFICE/OUTPATIENT VISIT EST Diagnosis: Abdominal pain[ICD10: R10.9] Diagnosis: Pyelonephritis[ICD10: N12] Pattie DOMINGUEZ [facility] CPT-4: 38843 01/07/2019 ([id number]) OFFICE/OUTPATIENT VISIT EST Diagnosis: Low back pain[ICD10: M54.5] Diagnosis: Left lumbar radiculopathy[ICD10: M54.16] Diagnosis: Left flank pain[ICD10: R10.9] Diagnosis: Left lower quadrant pain[ICD10: R10.32] Diagnosis: FLU VACCINE[ICD10: Z23] Belia FREDERICK [facility] CPT-4: 46599 12/24/2018 ([id number]) OFFICE/OUTPATIENT VISIT EST Diagnosis: Migraine, unspecified, not intractable, without status migrainosus[ICD10: G43.909] Diagnosis: Fibromyalgia[ICD10: M79.7] Belia DOMINGUEZ [facility] CPT-4: 28520 11/20/2018 ([id number]) OFFICE/OUTPATIENT VISIT EST Diagnosis: Migraine, unspecified, intractable, without status migrainosus[ICD10: G43.919] Diagnosis: Acute sinusitis, unspecified[ICD10: J01.90] Pattie REID [facility] CPT-4: 93437 11/04/2018 ([id number]) OFFICE/OUTPATIENT VISIT EST Diagnosis: Pain in left wrist[ICD10: M25.532] Diagnosis: Other dorsalgia[ICD10: M54.89] Pattie REID [facility] CPT-4: 03366 09/08/2018 ([id number]) OFFICE/OUTPATIENT VISIT EST Diagnosis: Acute stress reaction[ICD10: F43.0] Diagnosis: Pruritus, unspecified[ICD10: L29.9] 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, 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] Belia REID DO [facility] CPT-4: 01503 08/20/2018 ([id number]) OFFICE/OUTPATIENT VISIT EST Diagnosis: Hypotension due to drugs[ICD10: I95.2] Diagnosis: Paroxysmal atrial fibrillation[ICD10: I48.0] Diagnosis: Localized edema[ICD10: R60.0] Belia REID DO [facility] CPT-4: 10641 06/19/2018 ([id number]) OFFICE/OUTPATIENT VISIT EST Diagnosis: Generalized hyperhidrosis[ICD10: R61] Diagnosis: Essential (primary) hypertension[ICD10: I10] Diagnosis: Supraventricular tachycardia[ICD10: I47.1] Belia REID [employer] [facility] CPT-4: 05031 06/09/2018 ([id number]) OFFICE/OUTPATIENT VISIT EST Diagnosis: Stridor[ICD10: R06.1] Diagnosis: Dependence on supplemental oxygen[ICD10: Z99.81] Diagnosis: Weakness[ICD10: R53.1] Diagnosis: Supraventricular tachycardia[ICD10: I47.1] Belia REID DO [facility] CPT-4: 47167 05/21/2018 ([id number]) OFFICE/OUTPATIENT VISIT EST Diagnosis: Cervical disc disorder with radiculopathy, unspecified cervical region[ICD10: M50.10] Belia REID DO [facility] CPT-4: 07120 04/16/2018 ([id number]) OFFICE/OUTPATIENT VISIT EST Diagnosis: Migraine, unspecified, intractable, without status migrainosus[ICD10: G43.919] Diagnosis: Fibromyalgia[ICD10: M79.7] Pattie DAILEYER [employer] [facility] CPT-4: 05904 04/01/2018 ([id number]) NURSE/OUTPATIENT VISIT EST Diagnosis: Hematuria, unspecified[ICD10: R31.9] Diagnosis: Dysuria[ICD10: R30.0] Belia REID DO [facility] CPT-4: 68848 03/17/2018 ([id number]) OFFICE/OUTPATIENT VISIT EST Diagnosis: Erythema intertrigo[ICD10: L30.4] Diagnosis: Chronic obstructive pulmonary disease with (acute) exacerbation[ICD10: J44.1] Diagnosis: Type 2 diabetes mellitus with hyperglycemia[ICD10: E11.65] Belia REID DO [facility] CPT-4: 86437 03/06/2018 ([id number]) OFFICE/OUTPATIENT VISIT EST Diagnosis: Cervicalgia[ICD10: M54.2] Pattie AMBRIZ [facility] CPT-4: 50192 02/05/2018 ([id number]) OFFICE/OUTPATIENT VISIT EST Diagnosis: Candidiasis of skin and nail[ICD10: B37.2] Diagnosis: Cervicalgia[ICD10: M54.2] Pattie AMBRIZ [facility] CPT-4: 16074 01/20/2018 ([id number]) OFFICE/OUTPATIENT VISIT EST Diagnosis: Pain in thoracic spine[ICD10: M54.6] Diagnosis: Radiculopathy, thoracic region[ICD10: M54.14] Belia REID DO [facility] CPT-4: 19072 12/25/2017 ([id number]) OFFICE/OUTPATIENT VISIT EST Diagnosis: Pain in thoracic spine[ICD10: M54.6] Diagnosis: Other muscle spasm[ICD10: M62.838] Diagnosis: FLU VACCINE[ICD10: Z23] Diagnosis: PNEUMOCOCCAL VACCINE[ICD10: Z23] Belia REID DO [facility] CPT-4: 41142 12/17/2017 ([id number]) OFFICE/OUTPATIENT VISIT EST Diagnosis: Chronic obstructive pulmonary disease with (acute) exacerbation[ICD10: J44.1] Belia REID DO [facility] CPT- 4: 10672 10/30/2017 ([id number]) OFFICE/OUTPATIENT VISIT EST Diagnosis: Chronic obstructive pulmonary disease with acute lower respiratory infection[ICD10: J44.0] Diagnosis: Mild intermittent asthma with (acute) exacerbation[ICD10: J45.21] Belia REID DO [facility] CPT-4: 22790 10/23/2017 ([id number]) NURSE/OUTPATIENT VISIT EST Diagnosis: Migraine, unspecified, not intractable, without status migrainosus[ICD10: G43.909] Belia REID DO [facility] CPT - 4: 08677 08/26/2017 ([id number]) OFFICE/OUTPATIENT VISIT EST Diagnosis: Urinary tract infection, site not specified[ICD10: N39.0] Diagnosis: Encounter for screening for osteoporosis[ICD10: Z13.820] Diagnosis: Encounter for screening mammogram for malignant neoplasm of breast[ICD10: Z12.31] Diagnosis: Acute bronchitis, unspecified[ICD10: J20.9] Pattie REID DO [facility] CPT-4: 57676 07/19/2017 ([id number]) OFFICE/OUTPATIENT VISIT EST Diagnosis: Rash and other nonspecific skin eruption[ICD10: R21] Pattie REID DO [facility] CPT-4: 06834 05/29/2017 ([id number]) OFFICE/OUTPATIENT VISIT EST Diagnosis: Diarrhea, unspecified[ICD10: R19.7] Diagnosis: Tinea corporis[ICD10: B35.4] Diagnosis: Tinea cruris[ICD10: B35.6] Diagnosis: Migraine, unspecified, not intractable, without status migrainosus[ICD10: G43.909] Belia REID [employer] [facility] CPT - 4: 72682 05/07/2017 ([id number]) OFFICE/OUTPATIENT VISIT EST Diagnosis: Stridor[ICD10: R06.1] Diagnosis: Chronic obstructive pulmonary disease with (acute) exacerbation[ICD10: J44.1] Belia REID [employer] [facility] CPT- 4: 73544 03/18/2017 ([id number]) OFFICE/OUTPATIENT VISIT EST Diagnosis: Type 2 diabetes mellitus with hyperglycemia[ICD10: E11.65] Belia REID [facility] CPT-4: 31735 02/27/2017 OFFICE/OUTPATIENT VISIT EST Diagnosis: Type 2 diabetes mellitus with hyperglycemia[ICD10: E11.65] Pattie REID DO [facility] CPT-4: 16272 02/22/2017 ([id number]) OFFICE/OUTPATIENT VISIT EST Diagnosis: Urinary tract infection, site not specified[ICD10: N39.0] Diagnosis: Pneumonia, unspecified organism[ICD10: J18.9] Diagnosis: Type 2 diabetes mellitus with hyperglycemia[ICD10: E11.65] Belia REID DO [facility] CPT-4: 67054 01/23/2017 ([id number]) OFFICE/OUTPATIENT VISIT EST Diagnosis: Type 2 diabetes mellitus with hyperglycemia[ICD10: E11.65] Diagnosis: Localized edema[ICD10: R60.0] Diagnosis: PNEUMOCOCCAL VACCINE[ICD10: Z23] Diagnosis: FLU VACCINE[ICD10: Z23] Belia FREDERICK [facility] CPT-4: 55612 12/20/2016 OFFICE/OUTPATIENT VISIT EST Diagnosis: Pain in thoracic spine[ICD10: M54.6] Diagnosis: Low back pain[ICD10: M54.5] Diagnosis: Cervicalgia[ICD10: M54.2] Diagnosis: Cough[ICD10: R05] Celeste Ferreira BELIA REID [facility] CPT-4: 97015 10/08/2016 ([id number]) OFFICE/OUTPATIENT VISIT EST Diagnosis: Primary insomnia[ICD10: F51.01] Diagnosis: Migraine, unspecified, not intractable, without status migrainosus[ICD10: G43.909] Diagnosis: Type 2 diabetes mellitus with hyperglycemia[ICD10: E11.65] Belia REID DO [facility] CPT-4: 16754 09/19/2016 ([id number]) OFFICE/OUTPATIENT VISIT EST Diagnosis: Migraine, unspecified, not intractable, without status migrainosus[ICD10: G43.909] Diagnosis: Generalized abdominal pain[ICD10: R10.84] Diagnosis: Cough[ICD10: R05] Belia Franklin REID [facility] CPT-4: 70325 08/20/2016 ([id number]) OFFICE/OUTPATIENT VISIT EST Diagnosis: Chronic obstructive pulmonary disease, unspecified[ICD10: J44.9] Diagnosis: Stridor[ICD10: R06.1] Belia REID DO [facility] CPT-4: 41492 06/19/2016 ([id number]) OFFICE/OUTPATIENT VISIT EST Diagnosis: Chronic obstructive pulmonary disease, unspecified[ICD10: J44.9] Diagnosis: Personal history of urinary (tract) infections[ICD10: Z87.440] Belia REID DO [facility] CPT-4: 86516 06/04/2016 ([id number]) OFFICE/OUTPATIENT VISIT EST Diagnosis: Stridor[ICD10: R06.1] Diagnosis: Chronic obstructive pulmonary disease with acute lower respiratory infection[ICD10: J44.0] Diagnosis: Other specified diseases of intestine[ICD10: K63.89] Diagnosis: Cystitis, unspecified without hematuria[ICD10: N30.90] Belia REID DO [facility] CPT-4: 65443 05/02/2016 ([id number]) OFFICE/OUTPATIENT VISIT EST Diagnosis: Fibromyalgia[ICD10: M79.7] Diagnosis: Urinary tract infection, site not specified[ICD10: N39.0] Belia REID DO [facility] CPT-4: 65286 04/03/2016 ([id number]) OFFICE/OUTPATIENT VISIT EST Diagnosis: Unspecified asthma, uncomplicated[ICD10: J45.909] Diagnosis: Cough[ICD10: R05] Lidia REID DO [facility] T-4: 45136 02/29/2016 ([id number]) OFFICE/OUTPATIENT VISIT EST Diagnosis: Migraine, unspecified, intractable, without status migrainosus[ICD10: G43.919] Diagnosis: Urinary tract infection, site not specified[ICD10: N39.0] Belia REID DO [facility] CPT-4: 43806 02/02/2016 ([id number]) OFFICE/OUTPATIENT VISIT EST Diagnosis: Urinary tract infection, site not specified[ICD10: N39.0] Diagnosis: Unspecified abdominal pain[ICD10: R10.9] Diagnosis: Pain in thoracic spine[ICD10: M54.6] Diagnosis: Type 2 diabetes mellitus with diabetic neuropathic arthropathy[ICD10: E11.610] Belia Franklin CORNELLLINE Yuridia REID [employer] [facility] CPT-4: 44630 12/05/2015 ([id number]) OFFICE/OUTPATIENT VISIT EST Diagnosis: Chronic obstructive pulmonary disease with (acute) exacerbation[ICD10: J44.1] Diagnosis: Migraine, unspecified, not intractable, without status migrainosus[ICD10: G43.909] Lidia CORNELLLINE Yuridia REID [employer] [facility] CPT -4: 60375 10/26/2015 ([id number]) OFFICE/OUTPATIENT VISIT EST Diagnosis: Hematuria, unspecified[ICD10: R31.9] Diagnosis: Urinary tract infection, site not specified[ICD10: N39.0] Lidia HSUQUELINE BushraMayda FRANKLIN [employer] [facility] CPT-4: 47755 10/05/2015 OFFICE/OUTPATIENT VISIT EST Diagnosis: Chronic obstructive pulmonary disease, unspecified[ICD10: J44.9] Diagnosis: Muscle weakness (generalized)[ICD10: M62.81] Diagnosis: Polyneuropathy, unspecified[ICD10: G62.9] Diagnosis: Other intervertebral disc degeneration, 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] Diagnosis: Fibromyalgia[ICD10: M79.7] Belia Franklin HSUQUELINE Yuridia DOMINGUEZ [employer] [facility] CPT-4: 97516 09/15/2015 ([id number]) OFFICE/OUTPATIENT VISIT EST Diagnosis: Disorientation, unspecified[ICD10: R41.0] Diagnosis: Headache[ICD10: R51] Diagnosis: Paresthesia of skin[ICD10: R20.2] Lidia CORNELLHERNANDEZ Paredes Yuridia REID [employer] [facility] CPT-4: 25869 08/24/2015 ([id number]) OFFICE/OUTPATIENT VISIT EST Diagnosis: Type 2 diabetes mellitus with hyperglycemia[ICD10: E11.65] Diagnosis: Chronic obstructive pulmonary disease with acute lower respiratory infection[ICD10: J44.0] Belia Franklin HSUQUELINE BushraMayda FRANKLIN [employer] [facility] CPT-4: 64925 07/05/2015 ([id number]) OFFICE/OUTPATIENT VISIT EST Diagnosis: Mild intermittent asthma with (acute) exacerbation[ICD10: J45.21] Diagnosis: Chronic obstructive pulmonary disease, unspecified[ICD10: J44.9] Belia REID DO [facility] CPT-4: 61855 06/06/2015 ([id number]) OFFICE/OUTPATIENT VISIT EST Diagnosis: Chronic obstructive pulmonary disease with (acute) exacerbation[ICD10: J44.1] Lidia REID DO [facility] CPT- 4: 15096 05/23/2015 ([id number]) OFFICE/OUTPATIENT VISIT EST Diagnosis: Type 2 diabetes mellitus with hyperglycemia[ICD10: E11.65] Diagnosis: Functional dyspepsia[ICD10: K30] Belia REID DO [facility] CPT-4: 84594 05/05/2015 ([id number]) OFFICE/OUTPATIENT VISIT EST Diagnosis: Type 2 diabetes mellitus with hyperglycemia[ICD10: E11.65] Diagnosis: Glycosuria[ICD10: R81] Diagnosis: Urinary tract infection, site not specified[ICD10: N39.0] Belia REID [facility] CPT-4: 84001 03/30/2015 ([id number]) OFFICE/OUTPATIENT VISIT EST Diagnosis: Generalized abdominal pain[ICD10: R10.84] Diagnosis: Diarrhea, unspecified[ICD10: R19.7] Diagnosis: Urinary tract infection, site not specified[ICD10: N39.0] Diagnosis: Gastro-esophageal reflux disease without esophagitis[ICD10: K21.9] Belia REID [facility] CPT-4: 48314 02/03/2015 ([id number]) OFFICE/OUTPATIENT VISIT EST Diagnosis: Other specified noninflammatory disorders of vagina[ICD10: N89.8] Diagnosis: Follicular disorder, unspecified[ICD10: L73.9] Diagnosis: Functional dyspepsia[ICD10: K30] Diagnosis: FLU VACCINE[ICD10: Z23] Belia FREDERICK [employer] [facility] CPT-4: 82868 12/29/2014 ([id number]) OFFICE/OUTPATIENT VISIT EST 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] Diagnosis: RESTLESS LEGS SYNDROME[ICD9: 333.94] Diagnosis: MIGRAINE NOS/NOT INTRCBL[ICD9: 346.90] [facility]: 58871 09/02/2014 ([id number]) OFFICE/OUTPATIENT VISIT EST Diagnosis: Cervical radiculopathy[ICD9: 723.4] Diagnosis: Cervicalgia[ICD9: 723.1] Diagnosis: Degenerative disc disease, cervical[ICD9: 722.4] 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I[ICD9: 250.00] [facility]PT[facility]: 56990 04/01/2014 OFFICE/OUTPATIENT VISIT EST Diagnosis: Reactive airway disease[ICD9: 493.90] Belia REID [facility] CPT-4: 95547 03/16/2014 ([id number]) OFFICE/OUTPATIENT VISIT EST Diagnosis: BRONCHITIS, ACUTE[ICD9: 466.0] Diagnosis: Reactive airway disease[ICD9: 493.90] Belia REID [facility] CPT-4: 66621 03/09/2014 OFFICE/OUTPATIENT VISIT EST Diagnosis: BRONCHITIS, ACUTE[ICD9: 466.0] Diagnosis: WHEEZING[ICD9: 786.07] Huong Peguero [employer] [facility] CPT-4: 06581 03/03/2014 OFFICE/OUTPATIENT VISIT EST Diagnosis: BRONCHITIS, ACUTE[ICD9: 466.0] Diagnosis: WHEEZING[ICD9: 786.07] Huong Peguero [employer] [facility] CPT-4: 83877 03/01/2014 ([id number]) OFFICE/OUTPATIENT VISIT EST Diagnosis: GERD[ICD9: 530.81] Diagnosis: ARTHRALGIA-MULTIPLE SITES[ICD9: 719.49] Diagnosis: LUMB/LUMBOSAC DISC DEGEN[ICD9: 722.52] Diagnosis: - I - FIBROMYALGIA[ICD9: 729.1] Belia REID [facility] CPT-4: 61957 02/09/2014 ([id number]) OFFICE/OUTPATIENT VISIT EST Diagnosis: Peptic ulcer disease[ICD9: 533.90] Diagnosis: RESTLESS LEGS SYNDROME[ICD9: 333.94] Diagnosis: Neuropathy[ICD9: 355.9] Belia FREDERICK DO [facility] CPT-4: 97266 12/23/2013 ([id number]) OFFICE/OUTPATIENT VISIT EST Diagnosis: URINARY TRACT INFECTION[ICD9: 599.0] Belia REID DO [facility] CPT-4: 50345 10/30/2013 ([id number]) OFFICE/OUTPATIENT VISIT EST Diagnosis: Flank pain[ICD9: 789.00] Belia MARTINEZ [facility] CPT-4: 96381 10/21/2013 ([id number]) OFFICE/OUTPATIENT VISIT EST Diagnosis: INFLAMED SEBORR KERATOS[ICD9: 702.11] Diagnosis: Brachioradial pruritus[ICD9: 698.9] Diagnosis: ASTHMA NOS[ICD9: 493.90] Belia MARTINEZ [facility] CPT-4: 52156 10/05/2013 ([id number]) OFFICE/OUTPATIENT VISIT EST Diagnosis: HYPERTENSION[ICD9: 401.9] Diagnosis: - I - FIBROMYALGIA[ICD9: 729.1] Diagnosis: DIZZINESS/VERTIGO[ICD9: 780.4] Diagnosis: MIGRAINE NOS/NOT INTRCBL[ICD9: 346.90] Diagnosis: Diabetic peripheral neuropathy[ICD9: 250.60] Diagnosis: Flank pain[ICD9: 789.00] Belia MARTINEZ [facility] CPT-4: 77119 08/04/2013 ([id number]) OFFICE/OUTPATIENT VISIT EST Diagnosis: ALLERGIC RHINITIS[ICD9: 477.9] Belia REID DO [facility] CPT-4: 57827 07/13/2013 OFFICE/OUTPATIENT VISIT EST Diagnosis: URINARY TRACT INFECTION[ICD9: 599.0] Huong Osborne KRAIG REID DO [facility] CPT-4: 69506 07/03/2013 OFFICE/OUTPATIENT VISIT EST Diagnosis: HYPERTENSION[ICD9: 401.9] Diagnosis: URINARY TRACT INFECTION[ICD9: 599.0] Diagnosis: BACKACHE[ICD9: 724.5] Diagnosis: URINARY INCONTINENCE[ICD9: 788.30] Huong [place] CORNELLKIMI MARIE Yuridia REID [facility] CPT-4: 37525 05/27/2013 ([id number]) OFFICE/OUTPATIENT VISIT EST Diagnosis: Flank pain[ICD9: 789.00] Belia Oreisabellaannie HSUBELIA BushraMayda KIESHA POOLE [facility] CPT-4: 84765 05/25/2013 ([id number]) OFFICE/OUTPATIENT VISIT EST Diagnosis: B-COMPLEX DEFIC NEC[ICD9: 266.2] Belia Yandelnilson BELIA Yuridia REID [facility] CPT-4: 80973 05/04/2013 ([id number]) OFFICE/OUTPATIENT VISIT EST Diagnosis: ALLERGIC RHINITIS[ICD9: 477.9] Diagnosis: Vitamin B12 deficiency[ICD9: 266.2] Belia Yandelnilson THOMPSON [facility]idia [facility]PT-[facility]: 64218 04/17/2013 ([id number]) OFFICE/OUTPATIENT VISIT EST 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I[ICD9: 250.00] Diagnosis: URINARY TRACT INFECTION[ICD9: 599.0] Diagnosis: DIZZINESS/VERTIGO[ICD9: 780.4] Diagnosis: DIARRHEA[ICD9: 787.91] Belia Yandelnilson BRUNSON BushraMayda RALF Peguero [facility] CPT-4: 01204 04/06/2013 ([id number]) OFFICE/OUTPATIENT VISIT EST Diagnosis: URINARY TRACT INFECTION[ICD9: 599.0] Diagnosis: URINARY RETENTION[ICD9: 788.20] Belia Yandelnilson BRUNSON BushraMayda FRANKLIN [facility] CPT-4: 15819 11/10/2012 ([id number]) OFFICE/OUTPATIENT VISIT EST Diagnosis: TACHYCARDIA[ICD9: 785.0] Diagnosis: SYNCOPE AND COLLAPSE[ICD9: 780.2] Diagnosis: CONSCIOUSNS ALTERAT NEC[ICD9: 780.09] Belia CALVO BushraMayda FRANKLIN [facility] CPT-4: 15868 09/02/2012 OFFICE/OUTPATIENT VISIT EST Diagnosis: TACHYCARDIA[ICD9: 785.0] Diagnosis: SYNCOPE AND COLLAPSE[ICD9: 780.2] Beliahanna REID DO [facility] CPT-4: 53776 08/04/2012 ([id number]) OFFICE/OUTPATIENT VISIT EST Diagnosis: Loss of consciousness[ICD9: 780.09] Diagnosis: Tachycardia[ICD9: 785.0] Diagnosis: MALAISE AND FATIGUE[ICD9: 780.79] Belia REID [employer] [facility] CPT-4: 26805 07/21/2012 ([id number]) OFFICE/OUTPATIENT VISIT EST Diagnosis: BRONCHITIS, ACUTE[ICD9: 466.0] Diagnosis: ASTHMA NOS[ICD9: 493.90] Belia POOLE [facility] CPT-4: 03974 07/02/2012 ([id number]) OFFICE/OUTPATIENT VISIT EST Diagnosis: CEPHALGIA[ICD9: 784.0] Belia Peguero [employer] [facility] CPT-4: 54901 06/25/2012 ([id number]) OFFICE/OUTPATIENT VISIT EST Diagnosis: GERD[ICD9: 530.81] Diagnosis: DIARRHEA[ICD9: 787.91] Diagnosis: URINARY TRACT INFECTION[ICD9: 599.0] Diagnosis: ASTHMA NOS[ICD9: 493.90] Diagnosis: ALLERGIC RHINITIS[ICD9: 477.9] Belia REID [facility] CPT-4: 28947 06/24/2012 ([id number]) OFFICE/OUTPATIENT VISIT EST Diagnosis: MIGRAINE NOS/NOT INTRCBL[ICD9: 346.90] Diagnosis: TREMOR NEC[ICD9: 333.1] Diagnosis: CHRONIC PAIN SYNDROME[ICD9: 338.4] Belia BASS MARIE Yuridia REID [employer] [facility] CPT-4: 38303 05/20/2012 ([id number]) OFFICE/OUTPATIENT VISIT EST Diagnosis: DIZZINESS/VERTIGO[ICD9: 780.4] Diagnosis: PALPITATIONS[ICD9: 785.1] Diagnosis: TREMOR NEC[ICD9: 333.1] Diagnosis: ANXIETY STATE NOS[ICD9: 300.00] Diagnosis: POSTTRAUMATIC STRESS DISORDER[ICD9: 309.81] Belia REID [employer] [facility] CPT-4: 84929 05/08/2012 ([id number]) OFFICE/OUTPATIENT VISIT EST Diagnosis: MIGRAINE NOS/NOT INTRCBL[ICD9: 346.90] Diagnosis: FIBROMYALGIA[ICD9: 729.1] Diagnosis: SYNCOPE AND COLLAPSE[ICD9: 780.2] Diagnosis: Diabetic peripheral neuropathy[ICD9: 250.60] Belia TomlinsonMayda FRANKLIN [employer] CPT-4: 81262 04/22/2012 OFFICE/OUTPATIENT VISIT EST Diagnosis: ROTATOR CUFF DIS NEC[ICD9: 726.19] Diagnosis: JOINT PAIN-SHLDER[ICD9: 719.41] Diagnosis: DYSPEPSIA[ICD9: 536.8] Belia CORNELLLINE BushraMayda RALF Pegu[employer] CPT-4: 66916 02/13/2012 ([id number]) OFFICE/OUTPATIENT VISIT EST Diagnosis: MIGRAINE NOS/NOT INTRCBL[ICD9: 346.90] Diagnosis: GERD[ICD9: 530.81] Diagnosis: DYSPEPSIA[ICD9: 536.8] Belia CORNELLLINE BushraMayda R[employer]F [employer] CPT-4: 07254 01/28/2012 OFFICE/OUTPATIENT VISIT EST Diagnosis: CEPHALGIA[ICD9: 784.0] Diagnosis: MIGRAINE NOS/NOT INTRCBL[ICD9: 346.90] Diagnosis: GERD[ICD9: 530.81] Diagnosis: INSOMNIA NOS[ICD9: 780.52] Belia HSUQUELINE BushraMayda RAND DOMINGUEZ [employer] [facility] CPT-4: 51319 12/26/2011 ([id number]) OFFICE/OUTPATIENT VISIT EST Diagnosis: CEPHALGIA[ICD9: 784.0] Diagnosis: MIGRAINE NOS/NOT INTRCBL[ICD9: 346.90] Diagnosis: MALAISE AND FATIGUE[ICD9: 780.79] Diagnosis: FIBROMYALGIA[ICD9: 729.1] Diagnosis: ALLERGIC RHINITIS[ICD9: 477.9] Belia CORNELLLINE Bushra Mayda [facility] [employer] CPT-4: 74315 11/14/2011 ([id number]) OFFICE/OUTPATIENT VISIT EST Diagnosis: MALAISE AND FATIGUE[ICD9: 780.79] Diagnosis: MUSCLE WEAKNESS-GENERAL[ICD9: 728.87] Diagnosis: MIGRAINE NOS/NOT INTRCBL[ICD9: 346.90] Diagnosis: JOINT PAIN-SHLDER[ICD9: 719.41] Belia REID [facility] CPT-4: 41924 09/12/2011 ([id number]) OFFICE/OUTPATIENT VISIT EST Diagnosis: CONCUSSION[ICD9: 850.9] Diagnosis: Ataxia[ICD9: 781.3] Diagnosis: DIZZINESS/VERTIGO[ICD9: 780.4] Belia REID [facility] CPT-4: 21671 08/15/2011 ([id number]) OFFICE/OUTPATIENT VISIT EST Diagnosis: THROMBOPHLEBITIS[ICD9: 451.9] Diagnosis: Subacromial bursitis[ICD9: 726.19] Diagnosis: ALLERGIC RHINITIS[ICD9: 477.9] Diagnosis: Lipoma[ICD9: 214.9] [facility] 33131 08/09/2011 ([id number]) OFFICE/OUTPATIENT VISIT EST Diagnosis: THROMBOPHLEBITIS[ICD9: 451.9] Diagnosis: Arm pain[ICD9: 729.5] Diagnosis: Clostridium difficile colitis[ICD9: 008.45] Diagnosis: URINARY TRACT INFECTION[ICD9: 599.0] [facility]: 86955 07/03/2011 ([id number]) OFFICE/OUTPATIENT VISIT EST Diagnosis: ARTHRALGIA-MULTIPLE SITES[ICD9: 719.49] Diagnosis: Muscle cramp[ICD9: 729.82] Diagnosis: INSOMNIA NOS[ICD9: 780.52] [facility]: 09373 06/04/2011 OFFICE/OUTPATIENT VISIT EST Diagnosis: Headache[ICD9: 784.0] Diagnosis: Allergic rhinitis[ICD9: 477.9] [facility] CPT-[facility]: 07641 05/03/2011 OFFICE/OUTPATIENT VISIT EST Diagnosis: LUMB/LUMBOSAC DISC DEGEN[ICD9: 722.52] Diagnosis: MIGRAINE NOS/NOT INTRCBL[ICD9: 346.90] Diagnosis: CHRONIC PAIN SYNDROME[ICD9: 338.4] Diagnosis: RESTLESS LEGS SYNDROME[ICD9: 333.94] Belia REID [facility] CPT-4: 19412 04/05/2011 OFFICE/OUTPATIENT VISIT EST Diagnosis: MIGRAINE NOS/NOT INTRCBL[ICD9: 346.90] Diagnosis: GERD[ICD9: 530.81] Belia REID [facility] CPT-4: 11210 03/08/2011 OFFICE/OUTPATIENT VISIT EST Diagnosis: URINARY TRACT INFECTION[ICD9: 599.0] Diagnosis: Vertigo[ICD9: 780.4] Diagnosis: GERD[ICD9: 530.81] Belia REID [facility] CPT-4: 86492 01/24/2011 OFFICE/OUTPATIENT VISIT EST Diagnosis: Hypotension[ICD9: 458.9] Diagnosis: Syncopal episodes[ICD9: 780.2] Diagnosis: MIGRAINE NOS/NOT INTRCBL[ICD9: 346.90] Diagnosis: MALAISE AND FATIGUE[ICD9: 780.79] Belia Humphriesisabellaannie HSUKOFFIHERNANDEZ [facility] CPT-[facility]: 52924 01/02/2011 OFFICE/OUTPATIENT VISIT EST Diagnosis: Tinea cruris[ICD9: 110.3] Diagnosis: Intertrigo[ICD9: 695.89] Diagnosis: MIGRAINE NOS/NOT INTRCBL[ICD9: 346.90] Belia Yandelisabellaannie HSUQ [facility] CPT-[facility]: 15458 12/07/2010 OFFICE/OUTPATIENT VISIT EST Diagnosis: PALPITATIONS[ICD9: 785.1] Diagnosis: ANXIETY STATE NOS[ICD9: 300.00] [facility] CPT-4: 96421 11/16/2010 OFFICE/OUTPATIENT VISIT EST Diagnosis: URINARY TRACT INFECTION[ICD9: 599.0] Diagnosis: MIGRAINE NOS/NOT INTRCBL[ICD9: 346.90] Iraida CASILLAS [facility] CPT-[facility]: 52435 11/02/2010 OFFICE/OUTPATIENT VISIT EST Diagnosis: ALLERGIC RHINITIS[ICD9: 477.9] Diagnosis: ANXIETY STATE NOS[ICD9: 300.00] Belia [facility]LLLINE [facility] CPT-4: 90875 10/18/2010 OFFICE/OUTPATIENT VISIT EST Belia BRUNSON [facility] CPT- 4: 75623 09/19/2010 OFFICE/OUTPATIENT VISIT EST Belia BRUNSON [facility] CPT- 4: 26407 09/06/2010 ([id number]) OFFICE/OUTPATIENT VISIT EST Belia CASILLAS UELINE [facility] CPT-4: 25126 08/10/2010 ([id number]) OFFICE/OUTPATIENT VISIT EST Belia CASILLAS [facility] CPT-4: 20415 05/11/2010 ([id number]) OFFICE/OUTPATIENT VISIT, EST Belia MEJIALINE [facility] CPT-4: 28039 04/06/2010 ([id number]) OFFICE/OUTPATIENT VISIT, EST Belia HSU QUELINE [facility] CPT-4: 46000 02/09/2010 ([id number]) OFFICE/OUTPATIENT VISIT, EST Belia HSU [facility]INE [facility] CPT-4: 83998 01/05/2010 ([id number]) OFFICE/OUTPATIENT VISIT, EST Belia HSU [facility] CPT-4: 25565 12/07/2009 ([id number]) OFFICE/OUTPATIENT VISIT, EST Belia HSU [facility] CPT-4: 42817 11/08/2009 ([id number]) OFFICE/OUTPATIENT VISIT, EST Belia HSU [facility]INE [facility] CPT-4: 18539 10/24/2009 ([id number]) OFFICE/OUTPATIENT VISIT, EST Belia HSU [facility]INE [facility] CPT-4: 32115 07/25/2009 ([id number]) OFFICE/OUTPATIENT VISIT, EST Belia HSU QU[facility]INE [facility] CPT-4: 32604 05/26/2009 Plan of Care Planned Activity Notes Codes Status Date Visit Diagnosis Plan: Colitis Discussion: Mariah/[place] gyl [place] Diet ICD-9 : 558.9 ICD-10 : K52.9 06/16/2019 Visit Diagnosis Plan: Acute bronchitis Discussion: Cov er with levaquin Increase SVNs with albuterol to QID Has oxygen using q HS routinely and prn To ER if oxygen levels drop or worsening respiratory symptoms ICD-9 : 466.0 ICD-10 : J20.9 06/16/2019 Patient Education: Levaquin- [employer] Coupon [phone] [email or web address] Completed 06/16/2019 Visit Diagnosis Plan: Diarrhea Discussion: Vancomycin for 10 days and notify if not improving or worsening BLAND diet Hydrate ICD-9 : 787.91 ICD-10 : R19.7 06/08/2019 Appointment: Belia Reid WPtel: [facility] [address] TELEMEDICINE 06/08/2019 Visit Diagnosis Plan: Colitis Discussion: Flagyl plus cipro to cover for both colitis and UTI Notify or to ER if worsening ICD-9 : 558.9 ICD-10 : K52.9 05/26/2019 Visit Diagnosis Plan: Acute febrile illness Discussion : Notify if worsens ICD-9 : 780.60 ICD-10 : R50.9 05/26/2019 Appointment: Belia Reid WPtel: [phone] TELEMEDICINE 05/26/2019 Appointment: Pattie Sotomayor [address] RESCHEDULED 05/18/2019 Visit Diagnosis Plan: Chronic obstructive pulmonary di sease, unspecified Discussion: Recommend pulmonary rehab Patient states she never went to pulmonary rehab due to cost as well as transportation issues Finish trelagy Stop singulair Decrease hydroxyzine to 25mg po q HS Fwup [address] scan of Chest results discussed ICD-9 : 496 ICD-10 : J44.9 05/13/2019 Appointment: Belia Reid WPtel: [address] [place], [place] [id number] Hospital Follow Up 05/13/2019 Visit Diagnosis Plan: COUGH Discussion: Check CT scan of chest ICD-9 : 786.2 ICD-10 : R05 05/06/2019 Visit Diagnosis Plan: Stridor Discussion: Add Trelagy 1 p daily Add Singulair May need to see new slip presser ICD-9 : 786.1 ICD-10 : R06.1 05/06/2019 Appointment: Belia Reid WPtel: [address] [place], [place] [phone] FOLLOW UP 05/06/2019 Patient Education: Singulair- [employer] Coupon [id number] [email or web address] Completed 05/06/2019 Appointment: Belia Reid WPtel: [address] [place] [address] US RESCHEDULED 04/30/2019 Visit Diagnosis Plan: Stridor [...] : G25.5 04/29/2019 Appointment: Belia Reid WPtel: [address] [place], [place] [phone] Hospital Follow Up 04/29/2019 Patient Education: Valium- [employer] Coupon [id number] [email or web address] Completed 04/29/2019 Visit Diagnosis Plan: Flank pain [...] ICD-10 : R63.5 04/16/2019 Appointment: Pattie Sotomayor [address] [place] [address] ACUTE ILLNESS 04/16/2019 Patient Education: cyclobenzaprine- [employer] Coupon [id number] [email or web address] Completed 04/16/2019 Visit Diagnosis Plan: Migraine, unspecif ied, not intractable, without status migrainosus Discussion: Increase gabapentin to 600mg po BID ICD-9 : 346.90 ICD-10 : G43.909 04/08/2019 Visit Diagnosis Plan: Generalized pruritus Discussion: Hydroxyzine 25mg po TID for itching and anxiety ICD-9 : 698.9 ICD-10 : L29.9 04/08/2019 Appointment: Bleia Reid WPtel: [address] [place] [address] ACUTE ILLNESS 04/08/2019 Visit Diagnosis Plan: Cervicalgia [...] : M75.52 01/22/2019 Appointment: Belia Reid WPtel: [facility] [address] Hospital Follow Up 01/22/2019 Visit Diagnosis Plan: Abdominal pain Discussion: urine culture sent to assess for any infection. rocephin given in office to cover for pyelonephritis. instructed to push fluids. call office with any new or worsening symptoms. ICD-9 : 789.00 ICD-10 : R10.9 01/07/2019 Appointment: Pattie Sotomayor [address] [place] [address] ACUTE ILLNESS 01/07/2019 Visit Diagnosis Plan: Low back pain Discussion: Stat C T of abdomen/pelvis now ICD-9 : 724.2 ICD-10 : M54.5 12/24/2018 Appointment: Belia Reid WPtel: [address] [place] [address] FOLLOW UP 12/24/2018 Visit Diagnosis Plan: Migraine, [...] : M79.7 11/20/2018 Appointment: Belia Reid WPtel: [address] [place] [address] ACUTE ILLNESS 11/20/2018 Patient Education: baclofen- OptimizeRX Coupon [id number] https://www.[employer].com/samplemd/resources/getResource/61/2n8651g0-wc9e-53gx-68 Completed 11/20/2018 Visit Diagnosis Plan: Migraine, unspecif ied, intractable, without status migrainosus Discussion: toradol/phenergan given in o ffice (60 mg toradol, 12.5 mg phenergan). instructed to call if no improvement or worsening. instructed to follow up with pitch filler since headaches are occurring more frequently to make sure vision is not the cause. ICD-9 : 346.91 ICD-10 : G43.919 11/04/2018 Visit Diagnosis Plan: Acute sinusitis, unspecified Dis cussion: zithromax prescribed to cover for sinus infection due to length of symptoms and clinincal s/s. ICD-9 : 461.9 ICD-10 : J01.90 11/04/2018 Appointment: [facility]att[facility] [facility] 11/04/2018 Appointment: Belia Reid WPtel: [address] [place], [place] [phone] [place] CANCELED 09/24/2018 Visit Diagnosis Plan: Type 2 diabetes me llitus with diabetic neuropathy, unspecified Discussion: Retry gabapentin 300mg po q HS ICD-9 : 250.60 ICD-10 : E11.40 09/18/2018 Visit Diagnosis Plan: Vitamin D deficiency, unspecifie d Discussion: Increase Vitamin D3 to 10,000 u daily ICD-9 : 268.9 ICD-10 : E55.9 09/18/2018 Visit Diagnosis Plan: Encounter for [facility] adult medical examination without abnormal findings [...] : I10 09/18/2018 Appointment: Belia Reid WPtel: [facility] Annual Well Visit 09/18/2018 Patient Education: gabapentin- OptimizeRX Coupon [id number] https://www.[employer].com/samplemd/resources/getResource/61/5l64dq01-9wm3-3lye-y9 Completed 09/18/2018 Visit Diagnosis Plan: Pain in [...] : M54.89 09/08/2018 Appointment: Pattie Sotomayor 504 [facility]6676[facility] ACUTE ILLNESS 09/08/2018 Patient Education: prednisone- OptimizeRX Coupon [id number] https://www.LabPixies/sampleFieldEZ/resources/getResource/61/8u4km98y-1695-40o6-la Completed 09/08/2018 Visit Diagnosis Plan: Pruritus, unspecified [...] : E10.9 08/20/2018 Appointment: Belia Reid WPtel: [facility]6676[facility] ACUTE ILLNESS 08/20/2018 Patient Education: Lexapro- OptimizeRX Coupon [id number] Completed 08/20/2018 Patient Education: hydroxyzine HCl- OptimizeRX Coupon [id number] Completed 08/20/2018 Care Plan[facility] 2 6347[facility]5 Pending 08/20/2018 Visit Diagnosis Plan: Paroxysmal atrial fibrillation D iscussion: Discuss eliquis need with cardiology at [facility] due to cost ICD-9 : 427.31 ICD-10 : I48.0 06/19/2018 Visit Diagnosis Plan: Hypotension due to drugs Discuss ion: Discussed decreasing cardizem dose due to low BP and edema but sees cardiology next week Follow Up: 1 months ICD-9 : 458.8 ICD-10 : I95.2 06/19/2018 Appointment: Belia Reid WPtel: [phone] [facility] [place] FOLLOW UP 06/19/2018 Visit Diagnosis Plan: [...] R61 06/09/2018 Appointment: Belia Reid WPtel: [phone] [facility] FOLLOW UP 06/09/2018 Care Plan: CHEST X-RAY 2VW FRONTAL&LATL LOINC : 48229-6 Pending 05/26/2018 Visit Diagnosis Plan: Supraventricular tachycardia [...] R53.1 05/21/2018 Appointment: Belia Reid WPtel: [phone] [facility] [facility] Follow Up 05/21/2018 Visit Diagnosis Plan: Cervical disc diso rder with radiculopathy, unspecified cervical region Discussion: Scheduled for surgery on 06/02 10/[address] Faulkner ICD-9 : 722.0 ICD-10 : M50.10 04/16/2018 Appointment: Belia Reid WPtel: [address] [place], [place] [phone] Hospital Follow Up 04/16/2018 Visit Diagnosis Plan: [...] ICD-10 : G43.919 04/01/2018 Appointment: Pattie Sotomayor [address] [place] [address] ACUTE ILLNESS 04/01/2018 Appointment: Belia Reid WPtel: [address] [place] [address] 03/17/2018 Visit Diagnosis Plan: Chronic obstructiv e [...] : E11.65 03/06/2018 Appointment: Belia Reid WPtel: [address] [place] [address] Hospital Follow Up 03/06/2018 Visit Diagnosis Plan: Cervicalgia Discussion: spoke wi th dr. reid about patient. increased gabapentin to bid and started on celebrex bid. tramadrol rx written out to take prn. keep scheduled appt next week for myelogram. ICD-9 : 723.1 ICD-10 : M54.2 02/05/2018 Appointment: Pattie Sotomayor [address] [place], [place] [phone] ACUTE ILLNESS 02/05/2018 Care Plan: X-RAY EXAM NECK SPINE 4/5VWS cervical LOINC : 80727-7 Pending 01/21/2018 Visit Diagnosis Plan: Candidiasis of [...] ICD-10 : M54.2 01/20/2018 Appointment: Pattie Sotomayor [address] [place] [address] ACUTE ILLNESS 01/20/2018 Visit Diagnosis Plan: Pain in thoracic spine Discussio n: Proceed with CT scan of thoracic spine Will likely need PT ICD-9 : 724.1 ICD-10 : M54.6 12/25/2017 Appointment: Belia Reid WPtel: [phone] FOLLOW UP 12/25/2017 Care Plan: CT THORAX W/O DYE LOINC : 473 66-0 Pending 12/25/2017 Visit Diagnosis Plan: Pain in thoracic spine Discussio n: Stretches Alternated heat/ice Topical aspercreme with lidocaine Flexeril Recheck 1 week Flu and Pneumovax given ICD-9 : 724.1 ICD-10 : M54.6 12/17/2017 Appointment: Belia Reid WPtel: [phone] [facility]6676[facility] ACUTE ILLNESS 12/17/2017 Patient Education: Patient [...] ICD-10 : J44.1 10/30/2017 Appointment: Belia Reidtel: [address] [place], [place] [phone] [place] FOLLOW UP 10/30/2017 Patient Education: Patient Medication Summary Completed 10/30/2017 Visit Diagnosis Plan: Chronic obstructiv e pulmonary disease with acute lower respiratory infection Discussion: Continue SVNs with albuterol q4hrs Add Trelagy 1 inhalation daily Finish steroids Increase water intake Follow Up: 1 weeks ICD-9 : 496 ICD-10 : J44.0 10/23/2017 Appointment: Belia Reidtel: [address] [place], [place] [address] WORK IN 10/23/2017 Patient Education: Patient Medication Summary Completed 10/23/2017 Appointment: Belia Reidtel: [address] [place], [place] [address] NO SHOW 10/16/2017 Visit Diagnosis Plan: [...] ICD-10 : E11.65 09/17/2017 Appointment: Belia Reidtel: [address] [place], [place] [phone] Annual Well Visit 09/17/2017 Patient Education: Patient Medication Summary Completed 09/17/2017 Appointment: Belia Reidtel: [address] [place], [place] [phone] [place] INJECTION 08/26/2017 Patient Education: Patient Medication Summary Completed 08/26/2017 Appointment: Belia Reidtel: [phone] [facility] [place] CANCELED 07/31/2017 Visit Diagnosis Plan: Encounter [...] : J20.9 07/19/2017 Appointment: Pattie Sotomayor 504 [employer] [id number] ACUTE ILLNESS 07/19/2017 Patient Education: Patient Medication Summary Completed 07/19/2017 Care Plan: MAMMOGRAM SCREENING LOINC : 2 6347-5 Pending 07/19/2017 Patient Education: Patient Medication Summary Completed 06/05/2017 Care Plan: LIPID PANEL LOINC : 88587-6 Pending 06/05/2017 Care Plan: A1C HPLC LOINC : 61758-1 Pending 06/05/2017 Visit Diagnosis Plan: Rash and [...] : R21 05/29/2017 Appointment: Pattie Sotomayor 504 [employer] [id number] FOLLOW UP 05/29/2017 Patient Education: Patient Medication Summary Completed 05/29/2017 Visit Diagnosis Plan: Tinea corporis Discussion: Diflu can and topical nystatin Follow Up: 2 weeks ICD-9 : 110.5 ICD-10 : B35.4 05/07/2017 Visit Diagnosis Plan: Diarrhea, unspecified Discussion : Diflucan Cholestyramine Recheck 2weeks ICD-9 : 787.91 ICD-10 : R19.7 05/07/2017 Appointment: Belia Reid WPtel: [address] [place] [address] US FOLLOW UP 05/07/2017 Patient Education: Patient Medication Summary Completed 05/07/2017 Appointment: Belia Reidtel: [address] [place] [address] US RESCHEDULED 04/30/2017 Visit Diagnosis Plan: Chronic obstructiv e pulmonary disease with (acute) exacerbation Discussion: Finish prednisone Continue S VNS with albuterol ICD-9 : 491.21 ICD-10 : J44.1 03/18/2017 Visit Diagnosis Plan: Stridor Discussion: Increase Ati van 0.5mg po to TID routinely for next week then can go back to prn ICD-9 : 786.1 ICD-10 : R06.1 03/18/2017 Appointment: Belia Reid WPtel: [address] [place], [place] [phone] ER Follow UP 03/18/2017 Patient Education: Patient [...] : E11.65 02/27/2017 Appointment: Belia Reid WPtel: [address] [place], [place] [phone] [place] FOLLOW UP 02/27/2017 Patient Education: Patient [...] ICD-10 : E11.65 02/22/2017 Appointment: Pattie Sotomayor [facility]6676[facility] ACUTE ILLNESS 02/22/2017 Patient Education: Patient [...] J18.9 01/23/2017 Appointment: Belia Reid WPtel: [phone] [facility] ER Follow UP 01/23/2017 Patient Education: Patient Medication Summary Completed 01/23/2017 Appointment: Pattie Sotomayor [address] [place], [place] [address]a [facility] US CANCELED 01/17/2017 Appointment: Pattie Sotomayor [address] [place], [place] [phone] Annual Well Visit 01/14/2017 Visit Diagnosis Plan: Type 2 diabetes mellitus with hy perglycemia Discussion: Check CMP, HbA1C Flu shot and Prevnar 13 given Follow Up: 3 months ICD-9 : 250.02 ICD-10 : E11.65 12/20/2016 Visit Diagnosis Plan: Localized edema Discussion: Low Na diet Compression socks/Elevate feet ICD-9 : 782.3 ICD-10 : R60.0 12/20/2016 Appointment: Belia Reid WPtel: [phone] [facility] FOLLOW UP 12/20/2016 Patient Education: Patient Medication Summary Completed 12/20/2016 Patient Education: Patient Medication Summary Completed 10/10/2016 Visit Plan: Xrays of cervical, thoracic and lumbar spine at [facility] for Mobic (stop NSAIDS except Tylenol) and Flexeril UA sent for C&S Using SVN Call in 2-3 days if pain not improved or any worsening 10/08/2016 Appointment: Celeste Ferreira WPtel: [phone] ACUTE ILLNESS 10/08/2016 Patient Education: Patient [...] : E11.65 09/19/2016 Appointment: Belia Reid WPtel: [facility] 09/18 confirmed`sl FOLLOW UP 09/19/2016 Patient [...] : R10.84 08/20/2016 Appointment: Belia Reid WPtel: [address] [place], [place] [address] 08/16 confirmed~sl FOLLOW UP 08/20/2016 Patient Education: [...] : J44.9 06/19/2016 Appointment: Belia Reid WPtel: [address] [place], [place] [phone] [place] 06/18 confirmed ~ Hospital Follow Up [...] : Z87.440 06/04/2016 Appointment: Belia Reid WPtel: [facility] [place] 06/01 confirmed~sl FOLLOW UP 06/04/2016 [...] : R06.1 05/02/2016 Appointment: Belia Reid WPtel: [address] [place], [place] [phone] 05/01 confirmed [facility] Hospital Follow Up 05/02/2016 Patient Education: Patient [...] : N39.0 04/03/2016 Appointment: Belia Reid WPtel: [address] [place], [place] [phone] 04/02 [facility] Follow Up 04/03/2016 Patient Education: Patient Medication Summary Completed 04/03/2016 Visit Plan: Lungs are clear Her symptoms and exam are all upper airway restriction/constriction Can try supportive care Rx as above Follow up PRN 02/29/2016 Appointment: Lidia Hwang [address] [place], [place] [address] ACUTE ILLNESS 02/29/2016 Patient Education: Patient Medication Summary Completed 02/29/2016 Visit Plan: Toradol/Phenergan today for Migraine Change to Clindamycin to cover lactobacillus for UTI Cover with flagyl due to hx of C. Diff 02/02/2016 Appointment: Belia Reid WPtel: [address] [place], [place] [phone] 01/31 confirmed`sl ACUTE ILLNESS 02/02/2016 Patient Education: Patient Medication Summary Completed 02/02/2016 Visit Plan: Increase neurontin to 300mg q AM and 600mg q PM Discussed neurology re-evaluation Flu shot given Need to check on Pneumonia shot Rx written out for albuterol 01/05/2016 Appointment: Belia Reid WPtel: [address] [place], [place] [phone] 01/03 confirmed ~sl Annual Well Visit 01/05/2016 Patient Education: Patient Medication Summary Completed 01/05/2016 Visit Plan: Cipro Culture urine hydrate Flexeril refilled Alternate heat and ice for back Increase gabapentin to 300mg po BID Notify if worsens 12/05/2015 Appointment: Belia Reid WPtel: [address] [place], [place] [phone] 11/30 confirmed~sl ACUTE ILLNESS 12/05/2015 Patient Education: Patient Medication Summary Completed 12/05/2015 Patient Education: Patient Medication Summary Completed 10/27/2015 Care Plan: [place] : [address]-0 Pending 10/27/2015 Care Plan: A1C HPLC LOINC : 95830-8 Pending 10/27/2015 Visit Plan: Lungs are CTA today and is f eeling improved overall Finish meds as ordered Continue inhalers and neb treatments Discussed migraine treatment options She does not feel she needs anything additional added today Refill of Januvia sent since no samples are available today 10/26/2015 Appointment: Lidai Hwang [address] [place], [place] [address] Hospital Follow Up 10/26/2015 Appointment: Lidia Hwang [address] [place], [place] [address] CANCELED 10/26/2015 Patient Education: Patient Medication Summary Completed 10/26/2015 Patient Education: Januvia - 18+ - KENNETH - No [place] Completed 10/26/2015 Visit Plan: Office dip still abnormal Cu lture pending Switch to cipro - stop macrobid Push fluids - avoid caffeine Will call with culture results when available Follow up if worsening 10/05/2015 Appointment: Lidia Hwang [address] [place], [place] [phone] ER Follow UP 10/05/2015 Patient Education: Patient Medication Summary Completed 10/05/2015 Visit Plan: Proceed with PT for document ation of ROM and strength of all extremities Proceed with Power Mobility Device Trial of neurontin 300mg q HS--lyrica helped but patient unable to afford Recheck 1month 09/15/2015 Appointment: Belia Reid WPtel: [address] [place], [place] [phone] 09/13 confirmed~sl SPECIAL 09/15/2015 Patient Education: Patient Medication Summary Completed 09/15/2015 Visit Plan: Fille out Loan Discharge Pap erwork for total and permanent disability 08/25/2015 Patient Education: Patient Medication Summary Completed 08/25/2015 Visit Plan: Discussed with Dr Franklin Haywood at CT of head Will get last date of carotid doppler from her pharmacovigilance scientist and update if needed 08/24/2015 Appointment: Lidia Hwang [address] [place], [place] [phone] 08/22 confirmed~sl ACUTE ILLNESS 08/24/2015 Patient Education: Patient Medication Summary Completed 08/24/2015 Patient Education: Patient Medication Summary Completed 08/24/2015 Care Plan: US EXAM OF HEAD AND NECK carotid Ultrasound LOIN C : 83779-5 Pending 08/24/2015 Visit Plan: Long discussion about diet A ccuchecks daily Check HbA1C, CMP Change requip to mirapex 07/05/2015 Appointment: Belia Reid WPtel: [address] [place], [place] [address] 07/03 confirmed ~sl FOLLOW UP 07/05/2015 Patient Education: Patient Medication Summary Completed 07/05/2015 Visit Plan: Add Breo ellipta 100 1 p BID Continue SVNs with duoneb QID 06/06/2015 Appointment: Belia Reid WPtel: [address] [place], [place] [phone] Patient is calling for a ride, then retu rning our call.-sp 06/01 called and patient stated she will know saturday if she can get a ride~sl 06/05 [facility] Hospital Follow Up 06/06/2015 Patient Education: [...] not improving 05/23/2015 Appointment: Huong Osborne WPtel: [address] [place], [place] [phone] ACUTE ILLNESS 05/23/2015 Appointment: Lidia Hwang [address] [place], [place] [address] ER Follow UP 05/23/2015 Patient Education: Patient Medication Summary Completed 05/23/2015 Visit Plan: Check pancreatic enzymes and US of pancreas as patient can't understand why she has diabetes since has no family history Discussed weight, diet, exercise all play an important role in diabetes and are risk factors as well Continue Januvia and accuchecks daily 05/05/2015 Appointment: Belia Reid WPtel: [address] [place], [place] [phone] FOLLOW UP 05/05/2015 Patient Education: Patient Medication Summary Completed 05/05/2015 Care Plan: US EXAM ABDOM COMPLETE LOINC : 44502-0 Ordered 05/05/2015 Visit Plan: Start Januvia 100mg daily [place] with diflucan and culture urine Accuchecks daily alternating times Recheck 6weeks 03/30/2015 Appointment: Belia Reidtel: [address] [place], [place] [phone] 03/29 confirmed~lb FOLLOW UP 03/30/2015 Patient Education: Patient Medication Summary Completed 03/30/2015 Appointment: Belia Reid WPtel: [address] [place], [place] [phone] [place] 03/01 needs reschedule due to payment and insurance ~sl FOLLOW UP 03/02/2015 Visit Plan: Patient was just in ER last night so has not filled scripts yet Start Carafate and Flagyl and Cipro Add Hyophen 1 po BID Recheck 1mo 02/03/2015 Appointment: Belia Reid: [address] [place] [address] 02/02lm ~sl...02/03/15 appt confirmed cn ACUTE I LLNESS 02/03/2015 Patient Education: Patient Medication Summary Completed 02/03/2015 Visit Plan: Warm soaks to vaginal area K elex and Diflucan and observe Zofran to use prn 12/29/2014 Appointment: Belia Reid WPtel: [address] [place], [place] [address] 12/28 Confirmed ~sl ACUTE ILLNESS 12/29/2014 Patient Education: Patient Medication Summary Completed 12/29/2014 Appointment: Huong Osborne WPtel: [address] [place], [place] [phone] FOLLOW UP 09/24/2014 Appointment: Belia Reid WPtel: [address] [place], [place] [phone] 09/15 confirmed -mf FOLLOW UP 09/16/2014 Visit Plan: Increase requip to 2mg po BI D Increase lyrica to 225mg total a day by adding an extra 75mg in AM Recheck in 2weeks Continue to patch left eye while sleeping 09/02/2014 Appointment: Belia Reid WPtel: [address] [place], [place] [address] 09/01 appt confirmed cn Hospital Follow Up 09/02 Patient Education: Patient Medication Summary Completed 09/02/2014 Visit Plan: To [facility] for observat ion to R/O CVA 08/25/2014 Appointment: Huong Osborne WPtel: [address] [place], [place] [address] ACUTE ILLNESS 08/25/2014 Patient Education: Patient Medication Summary Completed 08/25/2014 Referral: Aaron Jonas WPtel: [facility] [address], [address] In [place] location Initiated 04/26/2014 Referral: Brian Srinivasan WPtel: [place] [address] Referral Initiated 04/20/2014 Appointment: Belia Reid WPtel: [address] [place], [place] [address] ER Follow UP 04/01/2014 Patient Education: Patient Medication Summary Completed 04/01/2014 Care Plan: MYELOGRAPHY NECK SPINE LOINC : 75279-2 Ordered 04/01/2014 Visit Plan: Continue Symbicort 160 at 2p BID Continue SVNs with duoneb at least QID Finish Levaquin Recheck 1mo on lyrica 03/16/2014 Appointment: Belia Reid WPtel: [address] [place] [address] 03/15 voicemail FOLLOW UP 03/16/2014 Patient Education: Patient Medication Summary Completed 03/16/2014 Visit Plan: Restart SVNs with duoneb QID Repeat prednisone Levaquin Continue symbicort Keep lyrica at same dose Recheck 1week 03/09/2014 Appointment: Belia Reid WPtel: [address] [place] [address] FOLLOW UP 03/09/2014 Patient Education: Patient Medication Summary Completed 03/09/2014 Appointment: Belia Reid WPtel: [address] [place] [address] 03/03 showed up 15 minutes late for appt -- put her on Huong's side for 10:45am FORGIVEN PER DR FOLLOW UP 03/03/2014 Appointment: Huong Osborne WPtel: [address] [place] [address] [place] FOLLOW UP 03/03/2014 Patient Education: Patient Medication Summary Completed 03/03/2014 Appointment: Huong Osborne WPtel: [address] [place], [place] [address] ER Follow UP 03/01/2014 Patient Education: Patient Medication Summary Completed 03/01/2014 Visit Plan: Add carafate for this next m onth Increase lyrica to 150mg q HS 02/09/2014 Appointment: Belia Reid WPtel: [address] [place], [place] [phone] [facility] Follow Up 02/09/2014 Patient Education: Patient Medication Summary Completed 02/09/2014 Visit Plan: Increase omeprazole back to 40mg po BID Use requip in AM and add lyrica 75mg q HS Recheck 1mo 12/23/2013 Appointment: Belia Reid WPtel: [address] [place], [place] [address] FOLLOW UP 12/23/2013 Patient Education: Patient Medication Summary Completed 12/23/2013 Patient Education: Patient Medication Summary Completed 12/04/2013 Appointment: Belia Reid WPtel: [address] [place] [address] 10/30/2013 Patient Education: Patient Medication Summary Completed 10/30/2013 Appointment: Belia Reid WPtel: [address] [place] [address] 10/21/2013 Patient Education: Patient Medication Summary Completed 10/21/2013 Visit Plan: Cryotherapy as above TAC and hydroxyzine to use prn to itching spots and itching SKs Add Advair HFA 115/21 1 p BID 10/05/2013 Appointment: Belia Reid WPtel: [address] [place], [place] [phone] 10/01 pt called and confirmed ACUTE ILLNESS Patient Education: Patient Medication Summary Completed 10/05/2013 Appointment: Belia Reid WPtel: [address] [place], [place] [address] copay and part of past balance FOLLOW U P 08/04/2013 Patient Education: Patient Medication Summary Completed 08/04/2013 Appointment: Belia Reid WPtel: [address] [place], [place] [phone] [place] INJECTION 07/13/2013 Patient Education: Patient Medication Summary Completed 07/13/2013 Appointment: Huong Osborne WPtel: [address] [place], [place] [phone] [place] ACUTE ILLNESS 07/03/2013 Patient Education: Patient Medication Summary Completed 07/03/2013 Visit Plan: Cipro and culture urine 05/27/2013 Appointment: Huong Osborne WPtel: [address] [place], [place] [phone] [place] 05/26 confirmed appt and notified that balance and electron microscopist y is due at appt time FOLLOW UP 05/27/2013 Patient Education: Patient Medication Summary Completed 05/27/2013 Appointment: Belia Reid WPtel: [address] [place], [place] [phone] [place] UA 05/25/2013 Patient Education: Patient Medication Summary Completed 05/25/2013 Appointment: Belia Reid WPtel: [address] [place], [place] [phone] [place] INJECTION 05/04/2013 Patient Education: Patient Medication Summary Completed 05/04/2013 Appointment: Belia Reid WPtel: [address] [place], [place] [phone] [place] INJECTION 04/17/2013 Patient Education: Patient Medication Summary Completed 04/17/2013 Appointment: Belia Reid WPtel: [address] [place], [place] [phone] [place] INJECTION 04/15/2013 Appointment: Belia Reid WPtel: [address] [place], [place] [phone] [place] 04/02 FOLLOW UP 04/06/2013 Patient Education: Patient Medication Summary Completed 04/06/2013 Visit Plan: Obtain lab results including UA from [facility] 11/10/2012 Appointment: Belia Reid WPtel: [address] [place] [address] ER Follow UP 11/10/2012 Patient Education: Patient Medication Summary Completed 11/10/2012 Appointment: Belia Reid WPtel: [address] [place], [place] [address] 10/30/12 patient canceled appt due to fin ances. Offered to work something out, patient declined-LB FOLLOW UP 11/05/2012 Visit Plan: Continue Bystolic at current dose Pt has fwup with Neurology on September 16 09/02/2012 Appointment: Belia Reid WPtel: [address] [place] [address] FOLLOW UP 09/02/2012 Patient Education: Patient Medication Summary Completed 09/02/2012 Visit Plan: Continue bystolic at 5mg chris ly Sees Neurology tomorrow Use oxygen at bedtime 08/04/2012 Appointment: Belia Reid WPtel: [address] [place] [address] FOLLOW UP 08/04/2012 Patient Education: Patient Medication Summary Completed 08/04/2012 Appointment: Belia Reid WPtel: [address] [place] [address] Hospital fwup for 07/21/12. merged appointments FOLLOW UP 07/24/2012 Visit Plan: Start Bystolic 5mg daily for tachycardia Fwup with neurology for further workup Overnight O2 sat 07/21/2012 Appointment: Belia Reid WPtel: [address] [place] [address] Hospital Follow Up 07/21/2012 Patient Education: Patient Medication Summary Completed 07/21/2012 Visit Plan: SVN with Albuterol QID Add A velox 400mg daily Notify if worsens or persists 07/02/2012 Appointment: Belia Reid WPtel: [address] [place] [address] ACUTE ILLNESS 07/02/2012 Patient Education: Patient Medication Summary Completed 07/02/2012 Appointment: Belia Reid WPtel: [address] [place], [place] [id number] [place] INJECTION 06/25/2012 Patient Education: Patient Medication Summary Completed 06/25/2012 Appointment: Belia Reid WPtel: [address] [place], [place] [id number] FOLLOW UP 06/24/2012 Patient Education: Patient Medication Summary Completed 06/24/2012 Appointment: Belia Reid WPtel: [address] [place], [place] [id number] 05/19 left message FOLLOW UP 05/20/2012 Patient [...] po TID 05/08/2012 Appointment: Belia Reid WPtel: [address] [place], [place] [id number] ACUTE ILLNESS 05/08/2012 Patient Education: Patient Medication Summary Completed 05/08/2012 Visit Plan: Continue current meds Contin ue lower dose on pain meds and Diazepam Still waiting on paperwork for botox for Migraines Will restart Neurontin at 600mg po q HS Pt going to stop Depakote due to can't afford 04/22/2012 Appointment: Belia Reid WPtel: [address] [place], [place] [id number] 04/21 Hospital Follow Up 04/22/2012 Patient Education: Patient Medication Summary Completed 04/22/2012 Visit Plan: Injection to shoulder as abo ve Continue current meds Has appointment with neurology on HAs in 02/13/2012 Appointment: Belia Reid WPtel: [address] [place], [place] [id number] [facility] will [facility] in next week. Kianna iqbal'ed this. - [place] FOLLOW UP 02/13/2012 Patient Education: Patient Medication Summary Completed 02/13/2012 Visit Plan: Proceed with headache specia list Change nexium to Protonix Phenergan to use prn Sumatriptan to use prn Pt still on Inderal 01/28/2012 Appointment: Belia Reid WPtel: [address] [place] [address] ER Follow UP 01/28/2012 Patient Education: Patient [...] for sleep 12/26/2011 Appointment: Belia Reid WPtel: [address] [place], [place] [phone] 12/24- appt. confirmed FOLLOW UP 2 Patient Education: Patient Medication Summary Completed 12/26/2011 Appointment: Belia Reid WPtel: [address] [place], [place] [phone] [place] FOLLOW UP 11/14/2011 Patient Education: Patient Medication Summary Completed 11/14/2011 Appointment: Belia Reid WPtel: [address] [place], [place] [phone] [place] FOLLOW UP 09/12/2011 Patient Education: Patient Medication Summary Completed 09/12/2011 Visit Plan: Supportive care Decrease Liseth catalino to 50mg q HS Decrease AM dose of Valium to 5mg q HS Use Endocet sparingly 08/15/2011 Appointment: Belia Reid WPtel: [address] [place], [place] [phone] ER Follow UP 08/15/2011 Patient Education: Patient Medication Summary Completed 08/15/2011 Appointment: Belia Reid WPtel: [address] [place] [address] [place] Spoke directly to patient yesterday and confirmed the appoin tmedavid. ACUTE ILLNESS 08/09/2011 Patient Education: Patient Medication Summary Completed 08/09/2011 Appointment: Belia Reid WPtel: [address] [place] [address] Hospital Follow Up 07/03/2011 Patient Education: Patient Medication Summary Completed 07/03/2011 Appointment: Belia Reid WPtel: [address] [place] [address] FOLLOW UP 06/04/2011 Patient Education: Patient Medication Summary Completed 06/04/2011 Visit Plan: Pt. wants "allergy shot" but in fact wants steroid shot. Will take a break from "generic Zyrtec they are getting from [facility]" and try Singulair for 2 weeks. 05/03/2011 Appointment: Iraida Jones WPtel: [address] [place] [address] ACUTE ILLNESS 05/03/2011 Patient Education: Patient Medication Summary Completed 05/03/2011 Visit Plan: Neurontin 400mg q HS for 1we ek then 800mg q HS Decrease requip to 1mg q HS for 2wks then stop Fwup 2mos 04/05/2011 Appointment: Belia Reid WPtel: [address] [place] [address] FOLLOW UP 04/05/2011 Patient Education: Patient Medication Summary Completed 04/05/2011 Visit Plan: Trial of neurontin in 2wks C ontinue current meds for stomach Pt has procedure with Dr. Ortiz next week for stone removal 03/08/2011 Appointment: Belia Reid WPtel: [address] [place] [address] Hospital Follow Up 03/08/2011 Patient Education: Patient Medication Summary Completed 03/08/2011 Appointment: Belia Reid WPtel: [address] [place], [place] [phone] [place] FOLLOW UP 02/19/2011 Visit Plan: reports [...] having success with Flagyl 01/24/2011 Appointment: Iraida Jnoes WPtel: [address] [place] [address] ACUTE ILLNESS 01/24/2011 Patient Education: Patient Medication Summary Completed 01/24/2011 Appointment: Belia Reid WPtel: [address] [place] [address] [place] FOLLOW UP 01/02/2011 Patient Education: Patient Medication Summary Completed 01/02/2011 Appointment: Belia Reid WPtel: [address] [place] [address] FOLLOW UP 12/12/2010 Appointment: Belia Reid WPtel: [address] [place] [address] ACUTE ILLNESS 12/07/2010 Patient Education: Patient Medication Summary Completed 12/07/2010 Visit Plan: Increase Buspar to 10mg po B ID 11/16/2010 Appointment: Belia Reid WPtel: [address] [place], [place] [phone] [place] FOLLOW UP 11/16/2010 Patient Education: Patient Medication Summary Completed 11/16/2010 Appointment: Iraida Jones WPtel: [address] [place], [place] [phone] ER Follow UP 11/02/2010 Patient Education: Patient Medication Summary Completed 11/02/2010 Visit Plan: Depo-Medrol/Kenalog given fo r allergies Add BuSpar for anxiety Oxycodone one p.o. q.i.d. for number 120 refilled 10/18/2010 Appointment: Belai Reid WPtel: [address] [place] [address] FOLLOW UP 10/18/2010 Patient Education: Patient Medication Summary Completed 10/18/2010 Visit Plan: Continue current meds Discus sed epidurals for back vs PT--will proceed with epidurals to thoracolumbar region to see if helps with pain 09/19/2010 Appointment: Belia Reid WPtel: [address] [place] [address] FOLLOW UP 09/19/2010 Patient Education: Patient Medication Summary Completed 09/19/2010 Visit Plan: DC MS contin Check CT scan t horacic spine Fwup pending above results 09/06/2010 Appointment: Belia Reid WPtel: [address] [place] [address] FOLLOW UP 09/06/2010 Patient Education: Patient Medication Summary Completed 09/06/2010 Visit Plan: Continue current meds Restar t MS contin 15mg po BID and use oxycodone prn Use daily senokot-s 2 po BID 08/10/2010 Appointment: Belia Reidtel: [address] [place], [place] [phone] FOLLOW UP 08/10/2010 Patient Education: Patient Medication Summary Completed 08/10/2010 Visit Plan: Depomedrol/Kenalog given Pt sees ENT later this month Cont current meds Mammo scheduled 05/11/2010 Appointment: Belia Reid WPtel: [address] [place], [place] [phone] FOLLOW UP 05/11/2010 Patient Education: Patient Medication Summary Completed 05/11/2010 Appointment: Belia Reid WPtel: [address] [place], [place] [phone] UA 05/04/2010 Patient Education: Patient Medication Summary Completed 05/04/2010 Visit Plan: Pt sent to lab for UA 04/28/2010 Appointment: Belia Reidtel: [address] [place], [place] [phone] [place] [address] 04/28/2010 Patient Education: Patient Medication Summary Completed 04/28/2010 Visit Plan: Check CT angiogram of chest Restart Advair Use proair prn Cont current meds Fwup with Card as schedulec 04/06/2010 Appointment: Belia Reidtel: [address] [place] [address] Follow Up 04/06/2010 Patient Education: Patient Medication Summary Completed 04/06/2010 Visit Plan: Paperwork filled out for pow erchair Depomedrol/kenalog given Pt sees ENT in 2wks to assess nasal obstruction problems 02/09/2010 Appointment: Belia Reidtel: [address] [place] [address] ESTABLISHED PATIENT 02/09/2010 Patient Education: Patient Medication Summary Completed 02/09/2010 Visit Plan: Change Elavil to Trazadone 1 50mg q HS Diflucan and nystatin for tinea cruris 01/05/2010 Appointment: Belia Reidtel: [address] [place] [address] FOLLOW UP 01/05/2010 Patient Education: Patient Medication Summary Completed 01/05/2010 Appointment: Belia Reidtel: [address] [place] [address] FOLLOW UP 12/07/2009 Patient Education: Patient Medication Summary Completed 12/07/2009 Appointment: Belia Reidtel: [address] [place] [address] FOLLOW UP 11/22/2009 Visit Plan: Cont current meds and await MRI results from Dr. Meadows's office and his final recommendations Will need to follow-up at later date on deviated septum 11/08/2009 Appointment: Belia Reid WPtel: [address] [place], [place] [phone] FOLLOW UP 11/08/2009 Patient Education: Patient Medication Summary Completed 11/08/2009 Visit Plan: Cont PT/OT See Neurosurgery Cont Dwain alejandrace 10/24/2009 Appointment: Belia Reid WPtel: [address] [place], [place] [phone] FOLLOW UP 10/24/2009 Patient Education: Patient Medication Summary Completed 10/24/2009 Appointment: Belia Reid WPtel: [address] [place], [place] [phone] [place] [address] Follow Up 10/17/2009 Appointment: Belia Reid WPtel: [address] [place] [address] ACUTE ILLNESS 07/25/2009 Patient Education: Patient Medication Summary Completed 07/25/2009 Appointment: Belia Reid WPtel: [address] [place], [place] [phone] FOLLOW UP 05/26/2009 Patient Education: Patient Medication Summary Completed 05/26/2009 Referral: Chino Balderas WPtel: [address] [place], [place] [phone] [place] Referral Initiated Referral: Merry Vale WPtel: [facility] [id number] [place] Dr Vale will review referral and book appointment Completed Referral: Francisco Javier Yoder WPtel: [address] [id number] [place] Patient needs EGD insurance will not inc rease a medication unless this procedure results show a need Completed Referral: Francisco Javier Yoder WPtel: [address] [id number] [place] Referral Historical Reference Referral: Francisco Javier Yoder WPtel: [address] [place] [address] [place] Referral Initiated Instructions Comment . Xrays [...] last date of carotid doppler from her pharmacovigilance scientist and update if needed . Long discussion [...] from "generic Zyrtec they are getting from [facility]" and try Singulair for 2 weeks. . [...]
--- OUTSIDE RECORDS SUMMARY | 2019-06-23 17:44 | XMS REPORT | CCD ---
Author Author Diana Reid D.O. Organization [facility] Address [address] [place] [address] Phone Care Team Providers Care Zig Zag Stitcher Name Role Phone Belia Reid D.O., PP Unavailable CCM Unavailable Summary Purpose Interface Exchange Insurance Providers Payer name Policy type / Coverage type Covered democrat ID Effective Begin Date Effective End Date [employer] MEDICARE Medicare Part B [id number] 2019 Unknown Family History Family History data not found Social History Social History Element Codes Description Effective Dates Tobacco history SNOMED CT: 517621391 Nonsmoker 09/13/2010 Allergies, Adverse Reactions, Alerts Substance Reaction Codes Entered Date Inactivated Date Status Eggs reaction [id number] 09/15/2015 No Inactive Date Active _ Unknown [...] Fill Instructions Levaquin 500 mg tablet RxNorm: 539371 1 Tablet(s) Oral QD 06/16/2019 06/23/2019 Active Flagyl 500 mg tablet RxNorm: 842475 1 Tablet(s) Oral three time s a day 06/16/2019 06/23/2019 Active Vancocin 125 mg capsule RxNorm: 928529 1 Capsule(s) Oral four t imes a day 06/08/2019 06/18/2019 Active diltiazem CD 240 mg capsule,extended release 24 hr RxNorm: 8 80215 1 Capsule(s) Oral QD 05/26/2019 11/21/2019 Active omeprazole 40 mg capsule,delayed release RxNorm: 168482 1 Capsule(s) Oral two times a day 05/26/2019 11/21/2019 Active Flagyl 500 mg tablet RxNorm: 803868 1 Tablet(s) Oral three time s a day 05/26/2019 06/05/2019 Inactive Cipro 250 mg tablet RxNorm: 418834 1 Tablet(s) Oral two times a day 05/26/2019 06/02/2019 Inactive hydroxyzine HCl 25 mg tablet RxNorm: 962672 1 Tablet(s) Oral QPM for itching/aniety 05/21/2019 06/27/2019 Active metoprolol tartrate 25 mg tablet RxNorm: 084934 1 Table t(s) Oral two times a day 05/21/2019 08/19/2019 Active hydroxyzine HCl 25 mg tablet RxNorm: 429723 1 Tablet(s) Oral QPM for itching/aniety 05/13/2019 05/20/2019 Inactive Singulair 10 mg tablet RxNorm: 743167 1 Tablet(s) Oral QPM 05/06/1905/12/2019 Inactive gabapentin 600 mg tablet RxNorm: 827968 1 Tablet(s) Oral QD 020 06/05/2019 Inactive Valium 5 mg tablet RxNorm: 595485 1 Tablet(s) Oral QPM for stri joao/muscle spasm 04/29/2019 05/29/2019 Inactive baclofen 10 mg tablet RxNorm: 689715 1 Tablet(s) Oral QPM for s pasm/neck pain 04/24/2019 05/23/2019 Inactive baclofen 10 mg tablet RxNorm: 040917 1 Tablet(s) Oral QPM for s pasm/neck pain 04/24/2019 04/23/2019 Inactive Novolin N NPH U-100 Insulin isophane 100 unit/mL subcu taneous susp RxNorm: 459696 23 Unit(s) Subcutaneous two times a day 04/20/2019 No Stop Date A ctive cyclobenzaprine 5 mg tablet RxNorm: 266667 1 Tablet(s) Oral three times a day as needed 04/16/2019 04/23/2019 Inactive hydroxyzine HCl 25 mg tablet RxNorm: 225653 1 Tablet(s) Oral three times a day for itching/aniety 04/08/2019 05/12/2019 Inactive gabapentin 600 mg tablet RxNorm: 908171 1 Tablet(s) Oral two ti mes a day 04/08/2019 05/05/2019 Inactive gabapentin 600 mg tablet RxNorm: 253557 1 Tablet(s) Oral two ti mes a day 04/08/2019 04/07/2019 Inactive Novolin N NPH U-100 Insulin isophane 100 unit/mL subcu taneous susp RxNorm: 871297 10 Unit(s) Subcutaneous two times a day 03/03/2019 04/19/2019 I nactive gabapentin 300 mg capsule RxNorm: 450464 1 Capsule(s) O ral every night at bedtime for neuropathy 02/26/2019 04/07/2019 Inactive gabapentin 300 mg capsule RxNorm: 760763 1 Capsule(s) O ral every night at bedtime for neuropathy 02/20/2019 02/25/2019 Inactive pramipexole 1 mg tablet RxNorm: 151556 1 Tablet(s) Oral QPM FOR RESTLESS LEGS (REPLACES REQUIP) 02/12/2019 02/07/2020 Active buspirone 5 mg tablet RxNorm: 049675 TAKE 1 TABLET THREE TIMES MILDRED Y 02/12/2019 05/12/2019 Inactive Lexapro 10 mg tablet RxNorm: 454793 TAKE 1 TABLET EVERY DAY FOR MOO D 01/31/2019 No Stop Date Active Ativan 0.5 mg tablet RxNorm: 660391 TAKE 1 TABLET BY MO UT THREE TIMES DAILY NEEDED FOR ANXIETY 01/26/2019 04/28/2019 Inactive Ativan 0.5 mg tablet RxNorm: 754034 TAKE 1 TABLET BY MO UTH THREE TIMES DAILY NEEDED FOR ANXIETY 01/05/2019 01/05/2019 Inactive Levaquin 500 mg tablet RxNorm: 475194 1 Tablet(s) Oral QD 12/25/2018 12/24/2018 Inactive Levaquin 500 mg tablet RxNorm: 058490 1 Tablet(s) Oral QD 12/25/2018 01/04/2019 Inactive baclofen 10 mg tablet RxNorm: 781735 1 Tablet(s) Oral three maico es a day 11/20/2018 01/19/2019 Inactive Ativan 0.5 mg tablet RxNorm: 922392 TAKE 1 TABLET BY MO UTH THREE TIMES DAILY NEEDED FOR ANXIETY 11/20/2018 01/04/2019 Inactive gabapentin 300 mg capsule RxNorm: 311632 1 Capsule(s) O ral every night at bedtime for neuropathy 11/20/2018 12/20/2018 Inactive Lexapro 10 mg tablet RxNorm: 241670 1 Tablet(s) PO QD for mood 07/201801/30/2019 Inactive Zithromax Z-Lj 250 mg tablet RxNorm: 936361 Tablet(s) PO take as directed 11/04/2018 11/19/2018 Inactive Insulin Syringe 1 mL 29 gauge x 1/2" RxNorm: 2 s yringes daily with insulin Dx: E11.65 10/08/2018 No Stop Date Active gabapentin 300 mg capsule RxNorm: 715378 1 Capsule(s) PO QHS fo r neuropathy 09/18/2018 10/17/2018 Inactive cyclobenzaprine 5 mg tablet RxNorm: 769990 1 Tablet(s) PO TID a s needed 09/09/2018 09/08/2018 Inactive cyclobenzaprine 5 mg tablet RxNorm: 907588 1 Tablet(s) PO TID a s needed 09/09/2018 10/08/2018 Inactive prednisone 20 mg tablet RxNorm: 025078 1 Tablet(s) PO QD 09/08/2018 0 09/12/2018 Inactive Lantus Solostar U-100 Insulin 100 unit/mL (3 mL) subcu taneous pen RxNorm: 099838 55 Unit(s) SQ QAM 08/28/2018 11/03/2018 Inactive hydroxyzine HCl 25 mg tablet RxNorm: 387673 1 Tablet(s) PO QHS for itching 08/20/2018 05/12/2019 Inactive Lexapro 10 mg tablet RxNorm: 667804 1 Tablet(s) PO QD for mood 08/0210/18/2018 Inactive sumatriptan 100 mg tablet RxNorm: 786358 1 Tablet(s) PO at headache onset. May repeat 1 in two hours if headache remains. Max of 2 per 24 hours 04/02/2018 05/20/2018 Inactive Diflucan 150 mg tablet RxNorm: 785530 1 Tablet(s) PO QD 03/18/2018 Inactive Diflucan 150 mg tablet RxNorm: 564092 1 Tablet(s) PO QD 03/18/2018 Inactive Flagyl 500 mg tablet RxNorm: 127568 1 Tablet(s) PO TID 03/17/2018 Inactive Levaquin 500 mg tablet RxNorm: 012054 1 Tablet(s) PO QD 03/17/2018 Inactive Levaquin 500 mg tablet RxNorm: 528520 1 Tablet(s) PO QD 03/17/2018 Inactive Flagyl 500 mg tablet RxNorm: 191870 1 Tablet(s) PO TID 03/17/2018 Inactive ketoconazole 200 mg tablet RxNorm: 032918 1 Tablet(s) PO QD 019 03/19/2018 Inactive Celebrex 200 mg capsule RxNorm: 129150 1 Capsule(s) PO BID 02/06/20 18 05/20/2018 Inactive tramadol 50 mg tablet RxNorm: 169426 1 Tablet(s) PO TID as needed 1 04/08/2017 05/20/2018 Inactive gabapentin 300 mg capsule RxNorm: 573218 1 Capsule(s) PO BID 201705/20/2018 Inactive Diflucan 150 mg tablet RxNorm: 313325 1 Tablet(s) PO QD 01/20/2018 Inactive pramipexole 1 mg tablet RxNorm: 891744 1 Tablet(s) PO Q PM FOR RESTLESS LEGS (REPLACES REQUIP) 01/08/2018 02/11/2019 Inactive cyclobenzaprine 10 mg tablet RxNorm: 800336 1 Tablet(s) PO TID as needed for muscle spasm 12/17/2017 05/20/2018 Inactive pramipexole 1 mg tablet RxNorm: 087975 TAKE 1 TABLET BY MOUTH ONCE DAILY IN THE EVENING FOR RESTLESS LEGS (REPLACES REQUIP) 12/04/2017 01/05/2018 Inac tive Amaryl 4 mg tablet RxNorm: 361394 1 Tablet(s) PO BID replaces 2mg 0 11/05/2017 12/16/2017 Inactive Singulair 10 mg tablet RxNorm: 391256 1 Tablet(s) PO QHS for al lergies/lungs 10/30/2017 12/16/2017 Inactive Diflucan 100 mg tablet RxNorm: 842720 1 Tablet(s) PO QD 10/23/2017 Inactive Ativan 0.5 mg tablet RxNorm: 655936 TAKE 1 TABLET BY MOUTH THRE E TIMES DAILY 08/30/2017 11/20/2018 Inactive buspirone 5 mg tablet RxNorm: 190680 1 Tablet(s) PO TID 07/11/2017 Inactive propranolol 60 mg tablet RxNorm: 404497 1 Tablet(s) PO BID repl aces 40mg dose 06/26/2017 12/16/2017 Inactive Amaryl 4 mg tablet RxNorm: 566029 1 Tablet(s) PO BID replaces 2mg 0 06/12/2017 11/05/2017 Inactive omeprazole 40 mg capsule,delayed release RxNorm: 064943 1 Capsule(s) PO BID TAKE ONE CAPSULE BY MOUTH TWICE DAILY 05/30/2017 11/25/2017 Inactive pramipexole 1 mg tablet RxNorm: 207982 1 Tablet(s) PO Q PM for restless legs--replaces requip 05/30/2017 11/25/2017 Inactive amitriptyline 50 mg tablet RxNorm: 769235 1 Tablet(s) PO QHS 201709/16/2017 Inactive Diflucan 100 mg tablet RxNorm: 497741 1 Tablet(s) PO BID 05/07/2017 0 05/20/2017 Inactive nystatin (bulk) 100 million unit powder RxNorm: Application TO P BID 05/07/2017 05/20/2018 Inactive cholestyramine (with sugar) 4 gram oral powder RxNorm: 719793 1 Unit Dose PO QD 05/07/2017 01/20/2018 Inactive Ativan 0.5 mg tablet RxNorm: 009970 TAKE ONE TABLET BY MOUTH TH REE TIMES DAILY 05/01/2017 09/02/2017 Inactive Trulicity 1.5 mg/0.5 mL subcutaneous pen injector RxNorm: 15 30478 1 Unit Dose SQ WEEKLY 02/22/2017 03/23/2017 Inactive doxycycline hyclate 100 mg capsule RxNorm: 3024183 1 Capsule(s) PO BID 01/23/2017 02/05/2017 Inactive Amaryl 4 mg tablet RxNorm: 888766 1 Tablet(s) PO BID replaces 2mg 1 03/25/2016 05/22/2017 Inactive magnesium oxide 400 mg capsule RxNorm: 107705 1 Capsule(s) PO QD 07/18/2017 Inactive Ativan 0.5 mg tablet RxNorm: 764801 TAKE ONE TABLET BY MOUTH TH REE TIMES DAILY 01/17/2017 05/01/2017 Inactive Amaryl 2 mg tablet RxNorm: 055194 1 Tablet(s) PO BID 12/27/201601/22 Inactive Amaryl 2 mg tablet RxNorm: 882911 1 Tablet(s) PO BID 12/26/201612/26 Inactive Ativan 0.5 mg tablet RxNorm: 149780 TAKE ONE TABLET BY MOUTH TH REE TIMES DAILY 12/05/2016 01/18/2017 Inactive pramipexole 1 mg tablet RxNorm: 183701 1 Tablet(s) PO Q PM for restless legs--replaces requip 11/26/2016 05/30/2017 Inactive Mobic 15 mg tablet RxNorm: 515107 1 Tablet(s) PO QD 10/08/20162016 Inactive cyclobenzaprine 5 mg tablet RxNorm: 391680 1/2- 1 Tablet(s) PO TID 10/08/2016 10/17/2016 Inactive Ativan 0.5 mg tablet RxNorm: 656668 1 Tablet(s) PO TID 09/20/201607/2016 Inactive amitriptyline 50 mg tablet RxNorm: 074327 1 Tablet(s) PO QHS 201605/30/2017 Inactive propranolol 60 mg tablet RxNorm: 476051 1 Tablet(s) PO BID repl aces 40mg dose 09/19/2016 06/26/2017 Inactive Ativan 0.5 mg tablet RxNorm: 563484 1 Tablet(s) PO TID 08/20/2016 Inactive omeprazole 40 mg capsule,delayed release RxNorm: 820836 1 Capsule(s) PO BID TAKE ONE CAPSULE BY MOUTH TWICE DAILY 08/20/2016 05/30/2017 Inactive amitriptyline 50 mg tablet RxNorm: 548922 1 Tablet(s) PO QHS 201609/18/2016 Inactive pramipexole 1 mg tablet RxNorm: 877139 1 Tablet(s) PO Q PM for restless legs--replaces requip 07/23/2016 11/25/2016 Inactive Amaryl 2 mg tablet RxNorm: 757967 1 Tablet(s) PO BID 07/23/201612/27 Inactive propranolol 40 mg tablet RxNorm: 120515 1 Tablet(s) PO BID 07/13/19 17 09/18/2016 Inactive Ativan 0.5 mg tablet RxNorm: 217079 1 Tablet(s) PO QID 06/19/2016 Inactive Amaryl 2 mg tablet RxNorm: 463050 1 Tablet(s) PO BID 06/19/201607/22 Inactive Ativan 0.5 mg tablet RxNorm: 568086 1 Tablet(s) PO QID 06/19/2016 Inactive buspirone 5 mg tablet RxNorm: 416760 1 Tablet(s) PO TID 06/19/2016 Inactive Ativan 0.5 mg tablet RxNorm: 341567 1 Tablet(s) PO BID 05/24/2016 Inactive buspirone 5 mg tablet RxNorm: 576614 1 Tablet(s) PO TID 05/23/2016 Inactive Macrobid 100 mg capsule RxNorm: 807845 1 Capsule(s) PO QOD 05/03/1910/07/2016 Inactive pramipexole 1 mg tablet RxNorm: 563732 Tablet(s) 1 Tabl et(s) PO QPM for restless legs--replaces requip 04/26/2016 06/24/2016 Inactive propranolol 40 mg tablet RxNorm: 373655 TAKE ONE TABLET BY MOUT H TWICE DAILY 04/26/2016 06/24/2016 Inactive Detrol LA 4 mg capsule,extended release RxNorm: 347687 1 Capsul e(s) PO QHS 04/03/2016 05/02/2016 Inactive prednisone 20 mg tablet RxNorm: 327706 1 Tablet(s) PO QD 02/29/2016 0 03/04/2016 Inactive Actos 30 mg tablet RxNorm: 449214 TAKE ONE TABLET BY MOUTH ONCE DAILY 02/27/2016 12/19/2016 Inactive clindamycin 300 mg capsule RxNorm: 304292 1 Capsule(s) PO TID 02/0102/08/2016 Inactive Flagyl 500 mg tablet RxNorm: 694891 1 Tablet(s) PO BID 02/02/201609/2015 Inactive omeprazole 40 mg capsule,delayed release RxNorm: 523291 TAKE ONE CAPSULE BY MOUTH TWICE DAILY 01/15/2016 07/12/2016 Inactive gabapentin 300 mg capsule RxNorm: 891187 1 Capsule(s) PO QAM an d 2 po q HS 01/05/2016 06/18/2016 Inactive gabapentin 300 mg capsule RxNorm: 828553 1 Capsule(s) P O BID 1 Capsule(s) PO QHS 12/05/2015 01/04/2016 Inactive cyclobenzaprine 10 mg tablet RxNorm: 913747 1 Tablet(s) PO TID for spasm as needed for muscle spasm 12/05/2015 06/18/2016 Inactive ciprofloxacin 250 mg tablet RxNorm: 272676 1 Tablet(s) PO BID 12/0412/14/2015 Inactive pramipexole 1 mg tablet RxNorm: 808160 Tablet(s) 1 Tabl et(s) PO QPM for restless legs--replaces requip 11/07/2015 11/26/2016 Inactive Januvia 100 mg tablet RxNorm: 464488 1 Tablet(s) PO QD 10/26/201504/2015 Inactive propranolol 40 mg tablet RxNorm: 105301 TAKE ONE TABLET BY MOUT H TWICE DAILY 10/25/2015 04/21/2016 Inactive gabapentin 300 mg capsule RxNorm: 043052 1 Capsule(s) PO QHS 201512/04/2015 Inactive Cipro 500 mg tablet RxNorm: 599429 1 Tablet(s) PO BID 10/05/201511/2015 Inactive pramipexole 1 mg tablet RxNorm: 107312 Tablet(s) 1 Tabl et(s) PO QPM for restless legs--replaces requip 10/04/2015 11/02/2015 Inactive propranolol 40 mg tablet RxNorm: 030258 TAKE ONE TABLET BY MOUT H TWICE DAILY 09/26/2015 10/24/2015 Inactive Amaryl 2 mg tablet RxNorm: 200240 1 Tablet(s) PO QD 09/15/20152016 Inactive gabapentin 300 mg capsule RxNorm: 365451 1 Capsule(s) PO QHS 201510/14/2015 Inactive buspirone 5 mg tablet RxNorm: 653351 1 Tablet(s) PO TID 09/15/2015 Inactive pramipexole 1 mg tablet RxNorm: 603257 Tablet(s) 1 Tabl et(s) PO QPM for restless legs--replaces requip 09/08/2015 10/03/2015 Inactive pramipexole 1 mg tablet RxNorm: 482022 1 Tablet(s) PO Q PM for restless legs--replaces requip 08/08/2015 09/08/2015 Inactive Amaryl 2 mg tablet RxNorm: 654967 1 Tablet(s) PO QD 07/07/20152015 Inactive pramipexole 1 mg tablet RxNorm: 863909 1 Tablet(s) PO Q PM for restless legs--replaces requip 07/05/2015 08/03/2015 Inactive ropinirole 2 mg tablet RxNorm: 310242 TAKE ONE TABLET BY MOUTH TWICE DAILY 05/09/2015 09/14/2015 Inactive Diflucan 100 mg tablet RxNorm: 374105 1 Tablet(s) PO QD 03/30/2015 Inactive propranolol 40 mg tablet RxNorm: 434710 1 Tablet(s) PO BID 02/24/20 15 08/21/2015 Inactive [SAVINGS FOR UNINSURED PATIE NTS -- BIN:692141, PCN: ASPROD1, Group: AME08, ID# [id number], Process claim through Evernote, for questions: . THIS IS NOT INSURANCE.] Flagyl 500 mg tablet RxNorm: 055657 1 Tablet(s) PO BID 02/03/201502/2015 Inactive Cipro 500 mg tablet RxNorm: 806988 1 Tablet(s) PO BID 02/03/201502/01 Inactive Carafate 1 gram tablet RxNorm: 441281 1 Tablet(s) PO QID make i nto slurry 02/03/2015 09/14/2015 Inactive ondansetron HCl 4 mg tablet RxNorm: 812652 1 Tablet(s) PO Q4H as needed for nausea 12/29/2014 01/04/2016 Inactive Diflucan 100 mg tablet RxNorm: 665881 1 Tablet(s) PO QD 12/29/2014 Inactive Keflex 500 mg capsule RxNorm: 715565 1 Capsule(s) PO TID 12/29/2014 1 03/09/2014 Inactive omeprazole 40 mg capsule,delayed release RxNorm: 189674 1 Capsu le(s) PO BID 12/27/2014 12/21/2015 Inactive [SAVINGS FOR UNINSUR ED PATIENTS -- BIN:811648, PCN: ASPROD1, Group: AME08, ID# [id number], Process claim through MedImpact, for questions: . THIS IS NOT INSURANCE.] ropinirole 2 mg tablet RxNorm: 194679 1 Tablet(s) PO BID 09/29/2014 0 03/27/2015 Inactive [SAVINGS FOR UNINSURED PATIENTS -- BIN:0 70758, PCN: ASPROD1, Group: AME08, ID# [id number], Process claim through MedImpact, for questions: . THIS IS NOT INSURANCE.] buspirone 5 mg tablet RxNorm: 520403 1 Tablet(s) PO TID 09/17/2014 Inactive ropinirole 2 mg tablet RxNorm: 264911 1 Tablet(s) PO BID 09/02/2014 0 09/28/2014 Inactive [SAVINGS FOR UNINSURED PATIENTS -- BIN:0 14916, PCN: ASPROD1, Group: AME08, ID# [id number], Process claim through MedImpact, for questions: . THIS IS NOT INSURANCE.] Zyrtec 10 mg tablet RxNorm: 7204935 1 Tablet(s) PO QD 09/02/201412/02 Inactive propranolol 40 mg tablet RxNorm: 946285 1 Tablet(s) PO BID 07/21/19 15 02/23/2015 Inactive [SAVINGS FOR UNINSURED PATIE NTS -- BIN:494003, PCN: ASPROD1, Group: AME08, ID# [id number], Process claim through MedImpact, for questions: . THIS IS NOT INSURANCE.] ropinirole 2 mg tablet RxNorm: 134650 1 Tablet(s) PO QHS 05/14/2014 0 09/01/2014 Inactive [SAVINGS FOR UNINSURED PATIENTS -- BIN:0 76138, PCN: ASPROD1, Group: AME08, ID# [id number], Process claim through MedImpact, for questions: . THIS IS NOT INSURANCE.] cyclobenzaprine 10 mg tablet RxNorm: 299571 1 Tablet(s) PO QHS for spasm 04/06/2014 09/01/2014 Inactive ipratropium-albuterol 0.5 mg-3 mg(2.5 mg base)/3 mL ne bulization soln RxNorm: 4609665 1 Unit Dose INH Q4H 03/16/2014 No Stop Date Active [SAVINGS FOR UNINSURED PATIENTS -- BIN:739802, PCN: ASPROD1, Group: AME08, ID# [id number], Process claim through MedImpact, for questions: . THIS IS NOT INSURANCE.] prednisone 20 mg tablet RxNorm: 389074 1 Tablet(s) PO BID 03/09/2014 03/15/2014 Inactive [SAVINGS FOR UNINSURED PATIENTS -- BIN:0 67689, PCN: ASPROD1, Group: AME08, ID# [id number], Process claim through MedImpact, for questions: . THIS IS NOT INSURANCE.] ipratropium-albuterol 0.5 mg-3 mg(2.5 mg base)/3 mL ne bulization soln RxNorm: 7599104 1 Unit Dose INH Q4H 03/09/2014 03/15/2014 Inactive [SAVINGS FOR UNINSURED PATIENTS -- BIN:100420, PCN: ASPROD1, Group: AME08, ID# [id number], Process claim through MedImpact, for questions: . THIS IS NOT INSURANCE.] Levaquin 500 mg tablet RxNorm: 721606 1 Tablet(s) PO QD 03/09/2014 Inactive [SAVINGS FOR UNINSURED PATIENTS -- BIN:0 90820, PCN: ASPROD1, Group: AME08, ID# [id number], Process claim through MedImpact, for questions: . THIS IS NOT INSURANCE.] Carafate 1 gram tablet RxNorm: 799578 1 Tablet(s) PO AC & HS ma ke into slurry 02/09/2014 09/01/2014 Inactive [SAVINGS FOR UNINSUR ED PATIENTS -- BIN:260973, PCN: ASPROD1, Group: AME08, ID# [id number], Process claim through MedImpact, for questions: . THIS IS NOT INSURANCE.] Fioricet 50 mg-300 mg-40 mg capsule RxNorm: 3477114 1-2 Capsule(s) PO Q4H as needed for headache --max of 6 a day 02/09/2014 09/01/2014 Inactive [SAVINGS FOR UNINSURED PATIENTS -- BIN:275992, PCN: ASPROD1, Group: AME08, ID# [id number], Process claim through MedImpact, for questions: . THIS IS NOT INSURANCE.] propranolol 40 mg tablet RxNorm: 920368 1 Tablet(s) PO BID 12/08/19 14 06/04/2014 Inactive [SAVINGS FOR UNINSURED PATIE NTS -- BIN:503571, PCN: ASPROD1, Group: AME08, ID# [id number], Process claim through MedImpact, for questions: . THIS IS NOT INSURANCE.] buspirone 5 mg tablet RxNorm: 965626 1 Tablet(s) PO TID 12/02/2013 Inactive omeprazole 40 mg capsule,delayed release RxNorm: 850228 1 Capsu le(s) PO BID 11/25/2013 11/19/2014 Inactive [SAVINGS FOR UNINSUR ED PATIENTS -- BIN:112079, PCN: ASPROD1, Group: AME08, ID# [id number], Process claim through MedImpact, for questions: . THIS IS NOT INSURANCE.] ropinirole 2 mg tablet RxNorm: 466153 1 Tablet(s) PO QHS 11/10/2013 0 05/08/2014 Inactive [SAVINGS FOR UNINSURED PATIENTS -- BIN:0 50155, PCN: ASPROD1, Group: AME08, ID# [id number], Process claim through MedImpact, for questions: . THIS IS NOT INSURANCE.] Cipro 500 mg tablet RxNorm: 368695 1 Tablet(s) PO BID 10/21/201312/03 Inactive [SAVINGS FOR UNINSURED PATIENTS -- BIN:0 75531, PCN: ASPROD1, Group: AME08, ID# [id number], Process claim through MedImpact, for questions: . THIS IS NOT INSURANCE.] hydroxyzine HCl 25 mg tablet RxNorm: 429060 1 Tablet(s) PO Q4-6 H as needed 10/05/2013 01/04/2016 Inactive [SAVINGS FOR UNINSUR ED PATIENTS -- BIN:383774, PCN: ASPROD1, Group: AME08, ID# [id number], Process claim through MedImpact, for questions: . THIS IS NOT INSURANCE.] triamcinolone acetonide 0.1 % topical cream RxNorm: 7392479 Appl ication TOP BID 10/05/2013 09/01/2014 Inactive [SAVINGS FOR UNINSUR ED PATIENTS -- BIN:536155, PCN: ASPROD1, Group: AME08, ID# [id number], Process claim through MedImpact, for questions: . THIS IS NOT INSURANCE.] albuterol sulfate HFA 90 mcg/actuation aerosol inhaler RxNor m: 9277134 2 Puff(s) INH Q4H as needed for cough 10/01/2013 12/22/2013 Inactive [MAKSIM INGS FOR UNINSURED PATIENTS -- BIN:048855, PCN: ASPROD1, Group: AME08, ID# [id number], Process claim through MedImpact, for questions: . THIS IS NOT INSURANCE.] propranolol 40 mg tablet RxNorm: 011899 1 Tablet(s) PO BID 09/02/1911/2911/29/2013 Inactive [SAVINGS FOR UNINSURED PATIE NTS -- BIN:367591, PCN: ASPROD1, Group: AME08, ID# [id number], Process claim through MedImpact, for questions: . THIS IS NOT INSURANCE.] propranolol 40 mg tablet RxNorm: 847619 1 Tablet(s) PO BID 08/05/19 14 08/31/2013 Inactive [SAVINGS FOR UNINSURED PATIE NTS -- BIN:247305, PCN: ASPROD1, Group: AME08, ID# [id number], Process claim through MedImpact, for questions: . THIS IS NOT INSURANCE.] Toprol XL 50 mg tablet,extended release RxNorm: 000803 1 Tablet (s) PO QHS 07/23/2013 08/03/2013 Inactive Macrobid 100 mg capsule RxNorm: 332264 1 Capsule(s) PO BID 07/04/19 14 07/09/2013 Inactive Toprol XL 50 mg tablet,extended release RxNorm: 755967 1 Tablet (s) PO QHS 05/28/2013 06/26/2013 Inactive ciprofloxacin 500 mg tablet RxNorm: 132208 1 Tablet(s) PO BID 05/2706/02/2013 Inactive Bystolic 5 mg tablet RxNorm: 733600 1 Tablet(s) PO QD 05/27/201305/03 Inactive ropinirole 2 mg tablet RxNorm: 855705 1 Tablet(s) PO QHS 04/22/2013 0 11/09/2013 Inactive Cipro 250 mg tablet RxNorm: 907847 1 Tablet(s) PO BID 04/06/201311/2013 Inactive ropinirole 2 mg tablet RxNorm: 150810 1 Tablet(s) PO QHS 02/17/2013 0 04/21/2013 Inactive Amaryl 2 mg tablet RxNorm: 409093 1 Tablet(s) PO QAM 11/11/201211/10 Inactive Amaryl 2 mg tablet RxNorm: 561876 1 Tablet(s) PO QAM 11/11/201204/05 Inactive omeprazole 40 mg capsule,delayed release RxNorm: 952103 1 Capsu le(s) PO BID 08/14/2012 08/08/2013 Inactive Bystolic 5 mg tablet RxNorm: 207376 1 Tablet(s) PO QD 08/14/201205/03 Inactive propranolol 60 mg tablet RxNorm: 617638 Tablet(s) PO TAKE 1 TAB LET TWICE DAILY 08/01/2012 09/01/2012 Inactive Bystolic 5 mg tablet RxNorm: 746981 1 Tablet(s) PO QD 07/21/201207/02 Inactive Bystolic 5 mg tablet RxNorm: 036621 1 Tablet(s) PO QD 07/21/201207/03 Inactive Prilosec 40 mg capsule,delayed release RxNorm: 140496 1 Capsule (s) PO BID 06/24/2012 07/21/2012 Inactive buspirone 10 mg tablet RxNorm: 511988 1 Tablet(s) PO TID 05/08/2012 0 05/23/2016 Inactive Valium 10 mg tablet RxNorm: 293796 1 Tablet(s) PO BID 04/02/201207/03 Inactive Endocet 10 mg-325 mg tablet RxNorm: 2702077 1 Tablet(s) PO QID 03/0607/21/2012 Inactive as needed for severe pain Valium 10 mg tablet RxNorm: 864887 1 Tablet(s) PO BID 02/27/2012 No S top Date Active Endocet 10 mg-325 mg tablet RxNorm: 6345048 1 Tablet(s) PO QID 02/0203/27/2012 Inactive as needed for severe pain Endocet 10 mg-325 mg tablet RxNorm: 1520296 1 Tablet(s) PO QID 01/0302/26/2012 Inactive as needed for severe pain Valium 10 mg tablet RxNorm: 279353 1 Tablet(s) PO BID 01/29/2012 No S top Date Active Protonix 40 mg tablet,delayed release RxNorm: 964092 1 Tablet(s ) PO QD 01/28/2012 07/21/2012 Inactive metformin ER 500 mg tablet,extended release 24 hr RxNorm: 86 0977 1 Tablet(s) PO QD 12/26/2011 07/20/2012 Inactive Trazadone 150 mg Tablet RxNorm: 1 Tablet(s) PO QHS prn sleep 1 04/23/2012 Inactive Endocet 10 mg-325 mg tablet RxNorm: 9843887 1 Tablet(s) PO QID 12/0301/24/2012 Inactive as needed for severe pain Nexium 40 mg capsule,delayed release RxNorm: 472685 1 Capsule(s ) PO QD 12/26/2011 01/27/2012 Inactive Symbicort 160 mcg-4.5 mcg/actuation HFA Aerosol Inhaler RxNo rm: 7574207 2 Puff(s) INH BID 12/04/2011 07/21/2012 Inactive Endocet 10 mg-325 mg tablet RxNorm: 6118634 1 Tablet(s) PO QID 11/0312/25/2011 Inactive as needed for severe pain metformin ER 500 mg tablet,extended release 24 hr RxNorm: 86 0977 1 Tablet(s) PO QD 11/20/2011 12/19/2011 Inactive metformin ER 500 mg tablet,extended release 24 hr RxNorm: 86 0977 1 Tablet(s) PO QD 11/20/2011 11/19/2011 Inactive amitriptyline 100 mg tablet RxNorm: 055475 Tablet(s) PO QHS 1 a nd 1/2 tabs QHS 11/12/2011 11/13/2011 Inactive Valium 10 mg tablet RxNorm: 184824 1 Tablet(s) PO BID 11/09/2011 No S top Date Active Endocet 10 mg-325 mg tablet RxNorm: 8895102 1 Tablet(s) PO QID 10/0211/14/2011 Inactive as needed for severe pain Aricept 10 mg Tab RxNorm: 797912 1 Tablet(s) PO QD 10/05/2011 013 Inactive Valium 10 mg tablet RxNorm: 736283 1 Tablet(s) PO BID 10/05/2011 No S top Date Active Endocet 10 mg-325 mg Tab RxNorm: 3135165 1 Tablet(s) PO QID 012 10/09/2011 Inactive as needed for severe pain Aricept 10 mg Tab RxNorm: 841717 1 Tablet(s) PO QD 08/14/2011 012 Inactive Endocet 10 mg-325 mg Tab RxNorm: 1877405 1 Tablet(s) PO QID 012 08/31/2011 Inactive as needed for severe pain Valium 10 mg Tab RxNorm: 503349 1 Tablet(s) PO BID 08/02/2011 No Stop Date Active propranolol 60 mg tablet RxNorm: 170113 1 Tablet(s) PO BID 07/26/19 12 09/11/2011 Inactive amitriptyline 100 mg tablet RxNorm: 903699 Tablet(s) PO QHS 1 a nd / tabs QHS 06/20/2011 09/11/2011 Inactive buspirone 10 mg tablet RxNorm: 405184 1 Tablet(s) PO BID 06/18/2011 0 09/15/2011 Inactive propranolol 60 mg Tab RxNorm: 252878 1 Tablet(s) PO BID 06/18/2011 Inactive gabapentin 800 mg Tab RxNorm: 822156 1 Tablet(s) PO BID 06/18/2011 Inactive ropinirole 2 mg tablet RxNorm: 677210 1 Tablet(s) PO QHS 05/29/2011 0 08/26/2011 Inactive trimethoprim 100 mg Tab RxNorm: 182402 1 Tablet(s) PO QHS 05/29/2011 07/21/2012 Inactive Endocet 10 mg-325 mg Tab RxNorm: 9857245 1 Tablet(s) PO QID 012 2011 Inactive as needed for severe pain Valium 10 mg Tab RxNorm: 151349 1 Tablet(s) PO QHS N eed to take med as prescribed. this is a 40 day RX. No early fills. 05/17/2011 05/20/2018 Inactive propranolol 60 mg Tab RxNorm: 528581 1 Tablet(s) PO BID 04/16/2011 Inactive Neurontin 800 mg Tab RxNorm: 940541 1 Tablet(s) PO QHS 04/05/201103/2011 Inactive Endocet 10 mg-325 mg Tab RxNorm: 8564936 1 Tablet(s) PO QID 012 05/02/2011 Inactive as needed for severe pain oxycodone-acetaminophen 10 mg-325 mg tablet RxNorm: 7774591 1 Ta blet(s) PO Q4H 03/28/2011 05/19/2012 Inactive Valium 10 mg Tab RxNorm: 911000 1 Tablet(s) PO QHS 03/28/2011 012 Inactive buspirone 10 mg Tab RxNorm: 091066 1 Tablet(s) PO BID 03/27/201106/02 Inactive propranolol 60 mg Tab RxNorm: 647208 1 Tablet(s) PO BID 03/19/2011 Inactive Klor-Con M20 20 mEq Tab RxNorm: 3293886 1 Tablet(s) PO QD 03/19/2011 07/21/2012 Inactive Aricept 10 mg Tab RxNorm: 320555 1 Tablet(s) PO QD 02/27/2011 012 Inactive propranolol 60 mg Tab RxNorm: 452317 1 Tablet(s) PO BID 02/19/2011 Inactive omeprazole 40 mg capsule,delayed release RxNorm: 459915 1 Capsu le(s) PO BID 01/24/2011 05/23/2011 Inactive clindamycin 300 mg capsule RxNorm: 359991 1 Capsule(s) PO TID 01/2402/02/2011 Inactive propranolol 60 mg Tab RxNorm: 759013 1 Tablet(s) PO BID 01/22/2011 No Stop Date Active nystatin 100,000 unit/g Topical Cream RxNorm: 463864 Applicatio n TOP BID 01/15/2011 01/14/2011 Inactive to rash for 2-4 week s Diflucan 200 mg Tab RxNorm: 854457 1 Tablet(s) PO QD 01/15/201101/28 Inactive buspirone 10 mg Tab RxNorm: 091407 1 Tablet(s) PO BID 01/08/201103/05 Inactive Valium 10 mg Tab RxNorm: 885264 1 Tablet(s) PO QHS 01/05/2011 012 Inactive Diflucan 200 mg Tab RxNorm: 109832 1 Tablet(s) PO QD 01/01/201101/14 Inactive Diflucan 200 mg Tab RxNorm: 950226 1 Tablet(s) PO QD 12/18/201012/31 Inactive Valium 10 mg Tab RxNorm: 626601 1 Tablet(s) PO QHS 12/12/2010 011 Inactive Diflucan 200 mg Tab RxNorm: 662424 1 Tablet(s) PO QD 12/07/201012/18 Inactive Aricept 10 mg Tab RxNorm: 166344 1 Tablet(s) PO QD 11/20/2010 011 Inactive ropinirole 1 mg Tab RxNorm: 252976 1 Tablet(s) PO QHS 11/16/201005/03 Inactive enalapril maleate 5 mg Tab RxNorm: 809663 1 Tablet(s) PO QD 011 05/20/2018 Inactive buspirone 10 mg Tab RxNorm: 319764 1 Tablet(s) PO BID 11/16/201012/02 Inactive Valium 10 mg Tab RxNorm: 916052 1 Tablet(s) PO QHS 11/07/2010 011 Inactive Pyridium 100 mg Tab RxNorm: 1559911 1 Tablet(s) PO TID 11/02/201004/2010 Inactive Macrobid 100 mg Cap RxNorm: 9235285 1 Capsule(s) PO BID 11/02/2010 Inactive buspirone 10 mg Tab RxNorm: 880855 1 Tablet(s) PO QHS 10/18/201005/02 Inactive propranolol 60 mg Tab RxNorm: 852786 1 Tablet(s) PO BID 09/18/2010 Inactive Valium 10 mg Tab RxNorm: 075915 1 Tablet(s) PO QHS 09/05/2010 011 Inactive Aricept 10 mg Tab RxNorm: 724451 1 Tablet(s) PO QD 08/14/2010 011 Inactive Valium 10 mg Tab RxNorm: 104537 1 Tablet(s) PO QHS 06/26/2010 011 Inactive ropinirole 1 mg Tab RxNorm: 770875 1 Tablet(s) PO QHS 06/19/201010/02 Inactive omeprazole 40 mg Cap, delayed release RxNorm: 052807 1 Capsule( s) PO QD 06/07/2010 10/04/2010 Inactive Endocet 10 mg-325 mg Tab RxNorm: 6302543 1 Tablet(s) PO QID as needed for severe pain 06/07/2010 03/07/2011 Inactive Endocet 10 mg-325 mg Tab RxNorm: 5642764 1 Tablet(s) PO QID as needed for severe pain 05/04/2010 06/02/2010 Inactive Valium 10 mg Tab RxNorm: 064596 1 Tablet(s) PO QHS 05/01/2010 011 Inactive propranolol 60 mg Tab RxNorm: 649473 1 Tablet(s) PO BID 04/03/2010 Inactive Valium 10 mg Tab RxNorm: 984798 1 Tablet(s) PO QHS 03/28/2010 011 Inactive omeprazole 40 mg Cap, Delayed Release RxNorm: 742735 1 Capsule( s) PO QD 03/28/2010 06/06/2010 Inactive Endocet 10 mg-325 mg Tab RxNorm: 4994923 1 Tablet(s) PO QID prn ari n 03/27/2010 05/20/2018 Inactive Valium 10 mg Tab RxNorm: 493231 1 Tablet(s) PO QHS 02/20/2010 011 Inactive Diflucan 100 mg Tab RxNorm: 493917 1 Tablet(s) PO BID 01/23/201003/2009 Inactive Diflucan 100 mg Tab RxNorm: 198342 1 Tablet(s) PO BID 01/05/201001/02 Inactive Aricept 10 mg Tab RxNorm: 646709 1 Tablet(s) PO QD 12/01/2009 011 Inactive OxyContin 20 mg 12 hr Tab RxNorm: 2001841 1 Tablet(s) PO BID 200904/05/2010 Inactive oxycodone-acetaminophen 10 mg-325 mg Tab RxNorm: 6221791 1 Table t(s) PO Q4H 11/22/2009 11/26/2009 Inactive Phenergan 25 mg Tab RxNorm: 905405 1 Tablet(s) PO PRN MIGRAINE 11/0303/07/2011 Inactive Demerol 100 mg Tab RxNorm: 577803 1 Tablet(s) PO PRN MIGRAINE 11/2203/07/2011 Inactive Oxycodone-Acetaminophen 10 mg-325 mg Tab RxNorm: 2256790 1 Table t(s) PO Q4H 10/11/2009 10/15/2009 Inactive Percocet 10 mg-325 mg Tab RxNorm: 0171873 1 Tablet(s) PO Q4H 200910/24/2009 Inactive propranolol 60 mg Tab RxNorm: 519224 1 Tablet(s) PO BID 08/29/2009 Inactive Valium 10 mg Tab RxNorm: 057674 1 Tablet(s) PO QHS 08/16/2009 010 Inactive Keflex 500 mg Cap RxNorm: 042341 1 Capsule(s) PO BID 07/25/200907/31 Inactive Hydroxyzine 25 mg Tab RxNorm: 933604 1 Tablet(s) PO TID 07/25/2009 Inactive Prednisone 20 mg Tab RxNorm: 290729 1 Tablet(s) PO BID 07/25/2009 Inactive Demerol 100 mg Tab RxNorm: 153249 1 Tablet(s) PO PRN MIGRAINE 07/25 No Stop Date Active Ropinirole 1 mg Tab RxNorm: 359617 1 Tablet(s) PO HS 07/20/200902/14 Inactive Valium 10 mg Tab RxNorm: 025933 1 Tablet(s) PO QHS 07/18/2009 010 Inactive Endocet 10 mg-325 mg Tab RxNorm: 4769872 1 Tablet(s) PO TID 010 07/07/2009 Inactive Demerol 100 mg Tab RxNorm: 249745 1 Tablet(s) PO PRN MIGRAINE 06/08 No Stop Date Active Ropinirole 1 mg Tab RxNorm: 248298 1 Tablet(s) PO HS 05/16/200907/14 Inactive ipratropium-albuterol 0.5 mg-3 mg(2.5 mg base)/3 mL ne bulization soln RxNorm: 2751001 1 Unit Dose INH Q4H as needed No Start Date Active MagOx 400 mg (241.3 mg magnesium) tablet RxNorm: 201302 1 Table t(s) PO BID No Start Date Active Vitamin B12 1000mcg Tablet RxNorm: 1 Tablet(s) PO QD No Start Date Active Vitamin D3 5,000 unit tablet RxNorm: 051686 1 Tablet(s) PO QD No Star t Date Active Tylenol Arthritis Pain 650 mg tablet,extended release RxNorm : 8345033 1 Tablet(s) PO Q4H No Start Date Active Lotrimin AF 2 % topical powder RxNorm: 708565 1 Application TOP BID No Start Date Active enalapril maleate 5 mg Tab RxNorm: 937354 1 Tablet(s) PO QD No Star t Date 07/20/2012 Inactive Demerol 100 mg Tab RxNorm: 065525 Tablet(s) PO PRN MIGRAINE No Star t Date 06/02/2009 Inactive metformin 500 mg tablet RxNorm: 435549 1 Tablet(s) PO QD No Start D ate 04/05/2013 Inactive Breo Ellipta 100 mcg-25 mcg/dose powder for inhalation RxNor m: 1908008 1 Puff(s) INH BID No Start Date 01/04/2016 Inactive Mag-Oxide 400 mg Tab RxNorm: 102246 1 Tablet(s) PO QD No Start Date 0 07/21/2012 Inactive Cipro 500 mg Tab RxNorm: 937468 1 Tablet(s) PO QD No Start Date 04/05 Inactive Ativan 0.5 mg tablet RxNorm: 048716 1 Tablet(s) PO TID as needed No Start Date 05/06/2019 Inactive melatonin 3 mg tablet RxNorm: 860371 2 Tablet(s) PO QHS No Start Da te 08/19/2018 Inactive buspirone 10 mg Tab RxNorm: 434670 1 Tablet(s) PO QD No Start Date Inactive sucralfate 100 mg/mL Oral Susp RxNorm: 454194 2 Teaspoon(s) PO QID No Start Date 07/21/2012 Inactive hydrocodone 5 mg-acetaminophen 325 mg tablet RxNorm: 852677 1 Tablet(s) PO Q4H as needed No Start Date 08/19/2018 Inactive Amaryl 2 mg tablet RxNorm: 684490 1 Tablet(s) PO BID No Start Date Inactive OxyContin 20 mg 12 hr Tab RxNorm: 6612441 1 Tablet(s) PO BID No Sta rt Date 11/27/2009 Inactive propranolol 40 mg tablet RxNorm: 352490 1 Tablet(s) PO QID No Start Date 01/19/2018 Inactive Trazadone 150 mg Tablet RxNorm: 1-2 Tablet(s) PO QHS prn sleep No Start Date 08/09/2010 Inactive propranolol 60 mg Tab RxNorm: 117338 1/2 Tablet(s) PO BID No Start Date 01/21/2011 Inactive insulin NPH and regular human subcutaneous RxNorm: 2018193 subcu taneous No Start Date 11/20/2018 Inactive Ativan 0.5 mg tablet RxNorm: 481382 1 Tablet(s) PO QID No Start Date 06/18/2016 Inactive Vasotec 5 mg Tab RxNorm: 433255 1 Tablet(s) PO BID No Start Date 06/2011 Inactive Toprol XL 50 mg tablet,extended release RxNorm: 696225 1 Tablet (s) PO BID No Start Date 04/05/2013 Inactive Ativan 0.5 mg tablet RxNorm: 999317 1 Tablet(s) PO TID No Start Date 05/25/2016 Inactive Klor-Con M20 20 mEq Tab RxNorm: 0429645 1 Tablet(s) PO QD No Start Date 03/19/2011 Inactive sumatriptan 100 mg tablet RxNorm: 798727 1 Tablet(s) PO at headache onset--repeat in 2hrs if remains No Start Date 07/21/2012 Inactive propranolol 60 mg Tab RxNorm: 696886 1 Tablet(s) PO BID No Start Da te 08/28/2009 Inactive Cholestyramine Light 4 gram Oral Powder RxNorm: 1532572 1 Unit Dose PO QD in water No Start Date 07/21/2012 Inactive nystatin 100,000 unit/g Topical Powder RxNorm: 327996 Applicati on TOP BID No Start Date 07/21/2012 Inactive vitamin O92-gmnex acid sublingual RxNorm: sublingual No Start Date 07/05/2013 Inactive cyclobenzaprine 5 mg tablet RxNorm: 421124 1/2-1 Tablet (s) PO TID as needed for muscle spasm No Start Date 07/18/2017 Inactive tramadol 50 mg tablet RxNorm: 813631 2 Tablet(s) PO TID as need ed for pain No Start Date 09/01/2014 Inactive aspirin 81 mg Tab RxNorm: 832464 1 Tablet(s) PO QOD No Start Date 04/2013 Inactive Vitamin B12 1000mcg Tablet RxNorm: 1 Tablet(s) PO QD No Start Date 07/18/2017 Inactive cholestyramine (with sugar) 4 gram oral powder RxNorm: 05621 3 1 Unit(s) PO QD as needed No Start Date 05/20/2018 Inactive ProAir HFA 90 mcg/Actuation Aerosol Inhaler RxNorm: 443333 2 Puff(s) INH Q4H prn shortness of breath No Start Date 07/21/2012 Inactive pravastatin 10 mg Tab RxNorm: 199791 1 Tablet(s) PO QD No Start Date 07/21/2012 Inactive gabapentin 800 mg Tab RxNorm: 478771 1 Tablet(s) PO BID No Start Da te 06/03/2011 Inactive Endocet 10 mg-325 mg Tab RxNorm: 3684453 1 Tablet(s) PO TID No Star t Date 06/02/2009 Inactive Naproxen 500 mg Tab RxNorm: 592350 1 Tablet(s) PO BID No Start Date 0 04/05/2010 Inactive Valium 10 mg Tab RxNorm: 250384 1 Tablet(s) PO BID No Start Date 07/04 Inactive enalapril maleate 5 mg Tab RxNorm: 294982 1 Tablet(s) PO QD No Star t Date 11/15/2010 Inactive doxepin 10 mg capsule RxNorm: 8981392 2 Capsule(s) PO QHS No Start Date 09/17/2018 Inactive MS Contin 15 mg Tab RxNorm: 714531 1 Tablet(s) PO BID No Start Date 0 09/18/2010 Inactive buspirone 5 mg tablet RxNorm: 866946 1 Tablet(s) PO TID No Start Da te 12/01/2013 Inactive [place] 3 Fish Oil Cap RxNorm: 1 Capsule(s) PO QD No Start Date 07/03 Inactive enalapril maleate 5 mg Tab RxNorm: 190325 1/2 Tablet(s) PO QD No St art Date 03/07/2011 Inactive Lyrica 75 mg capsule RxNorm: 399362 1 Capsule(s) PO QHS No Start Da te 02/08/2014 Inactive Lopressor 100 mg tablet RxNorm: 446804 1 Tablet(s) PO BID No Start Date 06/08/2018 Inactive Lantus Solostar U-100 Insulin 100 unit/mL (3 mL) subcu taneous pen RxNorm: 141110 45 Unit(s) SQ QAM No Start Date 05/20/2018 Inactive aspirin 81 mg tablet RxNorm: 413702 1 Tablet(s) PO QD No Start Date 0 09/14/2015 Inactive diltiazem CD 240 mg capsule,extended release 24 hr RxNorm: 8 91546 1 Capsule(s) PO QD No Start Date 05/25/2019 Inactive insulin NPH isophane U-100 human subcutaneous RxNorm: 866763 beckwith bcutaneous No Start Date 04/20/2019 Inactive sumatriptan 100 mg tablet RxNorm: 347145 1 Tablet(s) PO at headache onset. May repeat 1 in two hours if headache remains. Max of 2 per 24 hours No Start Date 04/01/2018 Inactive gabapentin 300 mg capsule RxNorm: 992552 1 Capsule(s) PO QHS No Sta rt Date 02/04/2018 Inactive Topamax 25 mg Tab RxNorm: 591279 Oral No Start Date 03/07/2011 In active Senokot-S 8.6 mg-50 mg Tab RxNorm: 2699412 1 Tablet(s) PO QD No Sta rt Date 03/07/2011 Inactive metformin ER 500 mg 24 hr tablet,extended release RxNorm: 18 49138 1 Tablet(s) PO QD No Start Date 05/20/2018 Inactive Symbicort 80 mcg-4.5 mcg/actuation HFA Aerosol Inhaler RxNor m: 0898745 2 Puff(s) INH BID No Start Date 04/05/2013 Inactive metoprolol tartrate 25 mg tablet RxNorm: 594472 1 Tablet(s) PO BID No Start Date 05/20/2019 Inactive propranolol 60 mg Tab RxNorm: 357363 1/2 Tablet(s) PO BID No Start Date 07/21/2012 Inactive metformin ER 500 mg 24 hr tablet,extended release RxNorm: 18 66488 2 Tablet(s) PO QD No Start Date 12/16/2017 Inactive Insulin Syringe 1 mL 29 gauge x 1/2" RxNorm: 2 s yringes daily with insulin Dx: E11.65 No Start Date 10/07/2018 Inactive Amitriptyline 75 mg Tab RxNorm: 549663 1 Tablet(s) PO QHS No Start Date 10/23/2009 Inactive donepezil 10 mg Tab RxNorm: 069667 1 Tablet(s) PO QD No Start Date Inactive Lantus Solostar U-100 Insulin 100 unit/mL (3 mL) subcu taneous pen RxNorm: 994889 36 Unit(s) SQ QAM No Start Date 12/24/2017 Inactive Miacalcin 200 unit/Actuation Nasal [place] Aerosol RxNorm: 261 204 1 [place] NASAL QD Alternate nostrils each day No Start Date 04/05/2010 Inactive Amitriptyline 150 mg Tab RxNorm: 953259 1 Tablet(s) PO QHS No Start Date 01/04/2010 Inactive Bystolic 5 mg tablet RxNorm: 474267 1 Tablet(s) PO QD No Start Date 0 08/13/2012 Inactive Aricept 10 mg Tab RxNorm: 322517 1 Tablet(s) PO QD No Start Date 11/03 Inactive Lantus Solostar U-100 Insulin 100 unit/mL (3 mL) subcu taneous pen RxNorm: 454463 50 Unit(s) SQ QAM No Start Date 08/27/2018 Inactive albuterol sulfate 2.5 mg/3 mL (0.083 %) Neb Solution RxNorm: 409364 1 Unit Dose INH QID as needed No Start Date 08/23/2015 Inactive Symbicort 160 mcg-4.5 mcg/actuation HFA Aerosol Inhaler RxNo rm: 8383744 2 Puff(s) INH BID No Start Date 12/03/2011 Inactive Savella 50 mg Tab RxNorm: 507584 1 Tablet(s) PO BID No Start Date 04/2010 Inactive amitriptyline 100 mg Tab RxNorm: 163865 1 1/2 Tablet(s) PO QHS No S tart Date 06/19/2011 Inactive nystatin 100,000 unit/g Topical Cream RxNorm: 220906 Ap plication TOP BID to rash for 2-4 weeks No Start Date 01/14/2011 Inactive Trelegy Ellipta 100 mcg-62.5 mcg-25 mcg powder for inhalatio n RxNorm: 1175986 1 Puff(s) INH QD No Start Date 12/16/2017 Inactive Lyrica 150 mg capsule RxNorm: 897284 1 Capsule(s) PO QHS No Start D ate 12/04/2015 Inactive sennosides 8.6 mg tablet RxNorm: 220328 1 Tablet(s) PO BID No Start Date 09/07/2018 Inactive metformin ER 500 mg tablet,extended release 24 hr RxNorm: 86 0975 1 Tablet(s) PO QD No Start Date 10/22/2017 Inactive Fish Oil 1,000 mg Cap RxNorm: 1 Capsule(s) PO QD No Start Date 06/2011 Inactive Zyrtec 10 mg Tab RxNorm: 5840897 1 Tablet(s) PO QD No Start Date 07/03 Inactive albuterol sulfate HFA 90 mcg/actuation aerosol inhaler RxNor m: 0780779 2 Puff(s) INH Q4H as needed for cough No Start Date 09/30/2013 Inactive trazodone 150 mg tablet RxNorm: 121615 1 Tablet(s) PO QHS No Start Date 07/21/2012 Inactive Spiriva with HandiHaler 18 mcg & inhalation capsules RxNorm: 602938 1 Capsule(s) INH QD No Start Date 04/05/2013 Inactive Coreg 3.125 mg Tab RxNorm: 734575 1 Tablet(s) PO BID No Start Date Inactive Phenergan 25 mg Tab RxNorm: 910591 Tablet(s) PO PRN MIGRAINE No Sta rt Date 11/21/2009 Inactive Vitamin D 50,000 unit Cap RxNorm: 0262124 1 Capsule(s) PO QW No Sta rt Date 03/07/2011 Inactive Januvia 100 mg tablet RxNorm: 576235 1 Tablet(s) PO QD No Start Date 10/25/2015 Inactive Eliquis 5 mg tablet RxNorm: 4601286 1 Tablet(s) PO BID No Start Date 08/19/2018 Inactive Advair Diskus 500 mcg-50 mcg/Dose for Inhalation RxNorm: 709915 1 INH BID No Start Date 07/21/2012 Inactive Vitamin D3 5,000 unit tablet RxNorm: 975867 1 Tablet(s) PO QD No St art Date 07/18/2017 Inactive Amaryl 2 mg tablet RxNorm: 264684 1 Tablet(s) PO QD No Start Date 06/2015 Inactive Actos 30 mg tablet RxNorm: 119870 1 Tablet(s) PO QD No Start Date Inactive promethazine 25 mg tablet RxNorm: 701966 1 Tablet(s) PO Q4H prn N/V No Start Date 07/21/2012 Inactive ProAir HFA 90 mcg/actuation Aerosol Inhaler RxNorm: 074107 2 Puff(s) INH Q4H prn dyspnea No Start Date 07/21/2012 Inactive Dexilant 60 mg Capsule RxNorm: 852365 1 Capsule(s) PO QD No Start D ate 01/27/2012 Inactive Lantus Solostar U-100 Insulin 100 unit/mL (3 mL) subcu taneous pen RxNorm: 231594 38 Unit(s) SQ QAM No Start Date 05/20/2018 Inactive Valium 10 mg Tab RxNorm: 557417 1 Tablet(s) PO QHS AND PRN No Start Date 10/24/2009 Inactive ZOFRAN ODT 8 mg disintegrating tablet RxNorm: 699152 1 Tablet(s ) PO Q6H No Start [...] Date S ervice Location MICROALBUMIN URINE RANDOM 46157 MICRL MG/L 14.9 MG/L Unknown MICROALBUMIN URINE RANDOM 95338 XM.ALB/CRE 6.1 MG/GCR Unknown MICROALBUMIN URINE RANDOM 20903 CREAT MG/D 243 MG/DL Unknown MICROALBUMIN URINE RANDOM 25540 CRE/100 2.43 G/L 03/05 Unknown PROTEIN/CREAT URINE WITH RATIO 85213|90611 PROT R U 14 MG/D L 04/01/2014 Unknown PROTEIN/CREAT URINE WITH RATIO 45759|46794 CREAT R U 254 MG/ DL 04/01/2014 Unknown PROTEIN/CREAT URINE WITH RATIO 12184|27605 XRATIO P/C 55 MG/ G 04/01/2014 Unknown URINALYSIS 57470 PROTEIN UR NEG 04/28/2010 Unknown URINALYSIS 92660 HEMGLBN UR NEG 04/28/2010 Unknown URINALYSIS 52192 GLUCOSE UR NEG 04/28/2010 Unknown URINALYSIS 31635 KETONES UR NEG 04/28/2010 Unknown URINALYSIS 35180 PH U 5.5 04/28/2010 Unknown URINALYSIS 89705 SP GR U 1.025 04/28/2010 Unknown URINALYSIS 92300 BILRUBN UR NEG 04/28/2010 Unknown URINALYSIS 09494 LEUKO UR 2+ 04/28/2010 Unknown URINALYSIS 84548 NITRITE UR NEG 04/28/2010 Unknown MICR CUL? [id number] WBC/HPF 6-10 04/28/2010 Unknown MICR CUL? 1543498 RBC/HPF 0-5 04/28/2010 Unknown MICR CUL? [id number] SP TO YOLIE? NO 04/28/2010 Unknown MICR CUL? 3551988 HYAL CAST 16-25 04/28/2010 Unknown MICR CUL? [id number] APPEAR UR NORMAL 04/28/2010 Unknown MICR CUL? [id number] SQ EPI/LPF FEW 04/28/2010 Unknown Procedures Procedure Codes Date URINALYSIS NONAUTO W/O SCOPE CPT-4: 64432 04/16/2019 URINE CULTURE/ COLONY COUNT CPT-4: 71385 04/16/2019 CEFTRIAXONE SODIUM INJECTION CPT-4: J0696 04/16/2019 THER/PROPH/DIAG INJ SC/IM CPT-4: 01232 04/16/2019 DRAIN/INJECT JOINT/BURSA CPT-4: 52597 01/22/2019 TRIAMCINOLONE ACET INJ NOS CPT-4: J3301 01/22/2019 DEXAMETHASONE SODIUM PHOS CPT-4: J1100 01/22/2019 URINE CULTURE/ COLONY COUNT CPT-4: 78523 01/07/2019 URINALYSIS NONAUTO W/O SCOPE CPT-4: 53957 01/07/2019 CEFTRIAXONE SODIUM INJECTION CPT-4: J0696 01/07/2019 THER/PROPH/DIAG INJ SC/IM CPT-4: 43514 01/07/2019 FLU VACC PRSV FREE INC ANTIG 65 AND OLDER CPT-4: 29634 12/24/2018 FLU VACC PRSV FREE INC ANTIG 65 AND OLDER CPT-4: 00639 12/24/2018 ADMIN INFLUENZA VIRUS VAC CPT-4: G0008 12/24/2018 THER/PROPH/DIAG INJ SC/IM CPT-4: 50737 11/04/2018 KETOROLAC TROMETHAMINE INJ CPT-4: J1885 11/04/2018 PROMETHAZINE HCL INJECTION CPT-4: J2550 11/04/2018 PPPS, subseq visit CPT-4: G0439 09/18/2018 THER/PROPH/DIAG INJ SC/IM CPT-4: 06163 04/01/2018 KETOROLAC TROMETHAMINE INJ CPT-4: J1885 04/01/2018 PROMETHAZINE HCL INJECTION CPT-4: J2550 04/01/2018 URINE CULTURE/ COLONY COUNT CPT-4: 57614 03/17/2018 URINALYSIS NONAUTO W/O SCOPE CPT-4: 25959 03/17/2018 FLU VACC PRSV FREE INC ANTIG 65 AND OLDER CPT-4: 79964 12/17/2017 PNEUMOCOCCAL VACC 23 RANDALL IM CPT-4: 20828 12/17/2017 ADMIN INFLUENZA VIRUS VAC CPT-4: G0008 12/17/2017 ADMIN PNEUMOCOCCAL VACCINE CPT-4: G0009 12/17/2017 PPPS, subseq visit CPT-4: G0439 09/17/2017 THER/PROPH/DIAG INJ SC/IM CPT-4: 19814 08/26/2017 KETOROLAC TROMETHAMINE INJ CPT-4: J1885 08/26/2017 PROMETHAZINE HCL INJECTION CPT-4: J2550 08/26/2017 URINALYSIS NONAUTO W/O SCOPE CPT-4: 85999 07/19/2017 URINE CULTURE/ COLONY COUNT CPT-4: 78574 07/19/2017 CEFTRIAXONE SODIUM INJECTION CPT-4: J0696 07/19/2017 THER/PROPH/DIAG INJ SC/IM CPT-4: 55740 07/19/2017 THER/PROPH/DIAG INJ SC/IM CPT-4: 22161 07/19/2017 TRIAMCINOLONE ACET INJ NOS CPT-4: J3301 07/19/2017 PRESCRIP TRANSMIT VIA ERX SY CPT-4: G8553 05/07/2017 PRESCRIP TRANSMIT VIA ERX SY CPT-4: G8553 02/22/2017 PRESCRIP TRANSMIT VIA ERX SY CPT-4: G8553 01/23/2017 FLU VACC PRSV FREE INC ANTIG 65 AND OLDER CPT-4: 22838 12/20/2016 PNEUMOCOCCAL VACC 13 RANDALL IM CPT-4: 24913 12/20/2016 ADMIN INFLUENZA VIRUS VAC CPT-4: G0008 12/20/2016 ADMIN PNEUMOCOCCAL VACCINE CPT-4: G0009 12/20/2016 URINALYSIS NONAUTO W/O SCOPE CPT-4: 51579 10/08/2016 URINE CULTURE/ COLONY COUNT CPT-4: 93566 10/08/2016 PRESCRIP TRANSMIT VIA ERX SY CPT-4: G8553 10/08/2016 PRESCRIP TRANSMIT VIA ERX SY CPT-4: G8553 09/19/2016 PRESCRIP TRANSMIT VIA ERX SY CPT-4: G8553 08/20/2016 PRESCRIP TRANSMIT VIA ERX SY CPT-4: G8553 02/29/2016 KETOROLAC TROMETHAMINE INJ CPT-4: J1885 02/02/2016 THER/PROPH/DIAG INJ SC/IM CPT-4: 48041 02/02/2016 PROMETHAZINE HCL INJECTION CPT-4: J2550 02/02/2016 PRESCRIP TRANSMIT VIA ERX SY CPT-4: G8553 02/02/2016 FLU VACC PRSV FREE INC ANTIG 65 AND OLDER CPT-4: 55176 01/05/2016 PPPS, subseq visit CPT-4: G0439 01/05/2016 ADMIN INFLUENZA VIRUS VAC CPT-4: G0008 01/05/2016 URINE CULTURE/ COLONY COUNT CPT-4: 95462 12/05/2015 URINALYSIS NONAUTO W/O SCOPE CPT-4: 98060 12/05/2015 PRESCRIP TRANSMIT VIA ERX SY CPT-4: G8553 12/05/2015 PRESCRIP TRANSMIT VIA ERX SY CPT-4: G8553 10/26/2015 URINALYSIS NONAUTO W/O SCOPE CPT-4: 99403 10/05/2015 URINE CULTURE/ COLONY COUNT CPT-4: 81950 10/05/2015 PRESCRIP TRANSMIT VIA ERX SY CPT-4: G8553 10/05/2015 SERVICE REQUIRED FOR PMD CPT-4: G0372 09/15/2015 PRESCRIP TRANSMIT VIA ERX SY CPT-4: G8553 09/15/2015 SPECIAL REPORTS OR FORMS CPT-4: 62226 08/25/2015 PRESCRIP TRANSMIT VIA ERX SY CPT-4: G8553 07/05/2015 URINALYSIS NONAUTO W/O SCOPE CPT-4: 16758 03/30/2015 ASSAY, GLUCOSE, BLOOD QUANT CPT-4: 62310 03/30/2015 URINE CULTURE/ COLONY COUNT CPT-4: 17716 03/30/2015 PRESCRIP TRANSMIT VIA ERX SY CPT-4: G8553 03/30/2015 PRESCRIP TRANSMIT VIA ERX SY CPT-4: G8553 02/03/2015 FLU VACC PRSV FREE INC ANTIG 65 AND OLDER CPT-4: 45674 12/29/2014 ADMIN INFLUENZA VIRUS VAC CPT-4: G0008 12/29/2014 PRESCRIP TRANSMIT VIA ERX SY CPT-4: G8553 12/29/2014 PRESCRIP TRANSMIT VIA ERX SY CPT-4: G8553 09/02/2014 PROTEIN/CREAT URINE WITH RATIO CPT-4: 74106|75357 5 MICROALBUMIN QUANTITATIVE CPT-4: 74727 04/01/2014 PRESCRIP TRANSMIT VIA ERX SY CPT-4: G8553 03/16/2014 PRESCRIP TRANSMIT VIA ERX SY CPT-4: G8553 03/09/2014 THER/PROPH/DIAG INJ SC/IM CPT-4: 47471 03/01/2014 TRIAMCINOLONE ACET INJ NOS CPT-4: J3301 03/01/2014 PRESCRIP TRANSMIT VIA ERX SY CPT-4: G8553 02/09/2014 URINE CULTURE/ COLONY COUNT CPT-4: 53364 10/30/2013 URINALYSIS NONAUTO W/O SCOPE CPT-4: 29556 10/21/2013 URINE CULTURE/ COLONY COUNT CPT-4: 94227 10/21/2013 DESTRUCT PREMALG LESION (Cryosurgery) CPT-4: 36436 PRESCRIP TRANSMIT VIA ERX SY CPT-4: G8553 10/05/2013 URINALYSIS NONAUTO W/O SCOPE CPT-4: 99668 08/04/2013 URINE CULTURE/ COLONY COUNT CPT-4: 41668 08/04/2013 PRESCRIP TRANSMIT VIA ERX SY CPT-4: G8553 08/04/2013 THER/PROPH/DIAG INJ SC/IM CPT-4: 40735 07/13/2013 TRIAMCINOLONE ACET INJ NOS CPT-4: J3301 07/13/2013 PRESCRIP TRANSMIT VIA ERX SY CPT-4: G8553 05/27/2013 URINALYSIS NONAUTO W/O SCOPE CPT-4: 98431 05/25/2013 URINE CULTURE/ COLONY COUNT CPT-4: 49084 05/25/2013 THER/PROPH/DIAG INJ SC/IM CPT-4: 64059 05/04/2013 VITAMIN B12 INJECTION CPT-4: J3420 05/04/2013 THER/PROPH/DIAG INJ SC/IM CPT-4: 69061 04/17/2013 VITAMIN B12 INJECTION CPT-4: J3420 04/17/2013 THER/PROPH/DIAG INJ SC/IM CPT-4: 70850 04/17/2013 METHYLPREDNISOLONE 40 MG INJ CPT-4: J1030 04/17/2013 TRIAMCINOLONE ACET INJ NOS CPT-4: J3301 04/17/2013 URINALYSIS NONAUTO W/O SCOPE CPT-4: 88001 04/06/2013 URINE CULTURE/ COLONY COUNT CPT-4: 11383 04/06/2013 PRESCRIP TRANSMIT VIA ERX SY CPT-4: G8553 04/06/2013 KETOROLAC TROMETHAMINE INJ CPT-4: J1885 06/25/2012 PROMETHAZINE HCL INJECTION CPT-4: J2550 06/25/2012 THER/PROPH/DIAG INJ SC/IM CPT-4: 21455 06/25/2012 THER/PROPH/DIAG INJ SC/IM CPT-4: 86276 06/24/2012 METHYLPREDNISOLONE 40 MG INJ CPT-4: J1030 06/24/2012 TRIAMCINOLONE ACET INJ NOS CPT-4: J3301 06/24/2012 URINE CULTURE/ COLONY COUNT CPT-4: 75627 06/24/2012 THER/PROPH/DIAG INJ SC/IM CPT-4: 85645 05/20/2012 KETOROLAC TROMETHAMINE INJ CPT-4: J1885 05/20/2012 THER/PROPH/DIAG INJ SC/IM CPT-4: 52959 05/20/2012 PROMETHAZINE HCL INJECTION CPT-4: J2550 05/20/2012 DRAIN/INJECT JOINT/BURSA CPT-4: 77195 02/13/2012 METHYLPREDNISOLONE 40 MG INJ CPT-4: J1030 02/13/2012 TRIAMCINOLONE ACET INJ NOS CPT-4: J3301 02/13/2012 THER/PROPH/DIAG INJ SC/IM CPT-4: 91736 11/14/2011 METHYLPREDNISOLONE 40 MG INJ CPT-4: J1030 11/14/2011 TRIAMCINOLONE ACET INJ NOS CPT-4: J3301 11/14/2011 THER/PROPH/DIAG INJ SC/IM CPT-4: 54749 09/12/2011 KETOROLAC TROMETHAMINE INJ CPT-4: J1885 09/12/2011 THER/PROPH/DIAG INJ SC/IM CPT-4: 37864 08/09/2011 METHYLPREDNISOLONE 40 MG INJ CPT-4: J1030 08/09/2011 TRIAMCINOLONE ACET INJ NOS CPT-4: J3301 08/09/2011 URINE CULTURE/ COLONY COUNT CPT-4: 86471 07/03/2011 URINE CULTURE/ COLONY COUNT CPT-4: 32507 06/04/2011 THER/PROPH/DIAG INJ SC/IM CPT-4: 43983 05/03/2011 METHYLPREDNISOLONE 40 MG INJ CPT-4: J1030 05/03/2011 TRIAMCINOLONE ACET INJ NOS CPT-4: J3301 05/03/2011 URINALYSIS NONAUTO W/O SCOPE CPT-4: 30332 01/24/2011 URINE CULTURE/ COLONY COUNT CPT-4: 67720 01/24/2011 FLUZONE, 5ML (Medicare) CPT-4: Q2038 01/02/2011 ADMIN INFLUENZA VIRUS VAC CPT-4: G0008 01/02/2011 ASSAY, GLUCOSE, BLOOD QUANT CPT-4: 40332 12/07/2010 URINE CULTURE/ COLONY COUNT CPT-4: 16596 11/02/2010 THER/PROPH/DIAG INJ SC/IM CPT-4: 16596 10/18/2010 METHYLPREDNISOLONE 40 MG INJ CPT-4: J1030 10/18/2010 TRIAMCINOLONE ACET INJ NOS CPT-4: J3301 10/18/2010 TRIAMCINOLONE ACET INJ NOS CPT-4: J3301 05/11/2010 METHYLPREDNISOLONE 40 MG INJ CPT-4: J1030 05/11/2010 THER/PROPH/DIAG INJ SC/IM CPT-4: 53862 05/11/2010 TRIAMCINOLONE ACET INJ NOS CPT-4: J3301 02/09/2010 METHYLPREDNISOLONE 40 MG INJ CPT-4: J1030 02/09/2010 THER/PROPH/DIAG INJ SC/IM CPT-4: 40676 02/09/2010 SERVICE REQUIRED FOR PMD CPT-4: G0372 02/09/2010 FLU VACCINE 3 YRS & > IM UP 64 CPT-4: 79383 0 PNEUMOCOCCAL VACC 23 RANDALL IM CPT-4: 45121 12/07/2009 ADMIN INFLUENZA VIRUS VAC CPT-4: G0008 12/07/2009 ADMIN PNEUMOCOCCAL VACCINE CPT-4: G0009 12/07/2009 TRIAMCINOLONE ACET INJ NOS CPT-4: J3301 05/26/2009 THER/PROPH/DIAG INJ SC/IM CPT-4: 30165 05/26/2009 METHYLPREDNISOLONE 80 MG INJ CPT-4: J1040 [...] 1: 114/72 Code: 8480-6 BMI: 37.8 Code: 09388-6 Heart Rate 1: 72 bpm Height: 5'3" [...] 1: 106/68 Code: 8480-6 BMI: 35.7 Code: 10619-7 Heart Rate 1: 72 bpm Height: 5'4" Respiratory Rate: 20 bpm SpO2: 98% Tempera ture: 36.7 (C) / 98.0 (F) Weight: 208 lbs 04/16/2018 Blood Pressure 1: 132/82 Code: 8480-6 BMI: 37.9 Code: 16294-4 Heart Rate 1: 72 bpm Height: 5'4" Respiratory Rate: 20 bpm SpO2: 96% Tempera ture: 37.1 (C) / 98.8 (F) Weight: 221 lbs 04/01/2018 Blood Pressure 1: 150/90 Code: 8480-6 Heart Rate 1: 72 bpm Respiratory Rate: 22 bpm SpO2: 95% Temperature: 36.4 (C) / 97.6 (F) We ight: 216 lbs 03/06/2018 Blood Pressure 1: 126/78 Code: 8480-6 BMI: 37.4 Code: 13215-0 Heart Rate 1: 68 bpm Height: 5'4" [...] ight: 222 lbs 12/25/2017 BMI: 37.8 Code: 92154-2 Heart Rate 1: 76 bpm Height: 5 '4" Respiratory Rate: 20 bpm SpO2: 96% Temperature: 37.3 (C) / 99.2 (F) Weight: 220 lbs 12/17/2017 Blood Pressure 1: 132/78 Code: 8480-6 BMI: 37.2 Code: 75124-9 Heart Rate 1: 88 bpm Height: 5'4" Respiratory Rate: 20 bpm SpO2: 96% Tempera ture: 37.3 (C) / 99.2 (F) Weight: 217 lbs 10/30/2017 Blood Pressure 1: 114/68 Code: 8480-6 BMI: 36.4 Code: 31813-0 Heart Rate 1: 72 bpm Height: 5'4" Respiratory Rate: 22 bpm SpO2: 96% Tempera ture: 36.8 (C) / 98.2 (F) Weight: 212 lbs 10/23/2017 Blood Pressure 1: 124/78 Code: 8480-6 Heart Rate 1: 72 bpm Respiratory Rate: 24 bpm SpO2: 94% Temperature: 36.6 (C) / 97.9 (F) We ight: 212 lbs 09/17/2017 Blood Pressure 1: 128/82 Code: 8480-6 BMI: 37.4 Code: 59837-6 Heart Rate 1: 72 bpm Height: 5'4" Respiratory Rate: 20 bpm SpO2: 96% Tempera ture: 37.0 (C) / 98.6 (F) Weight: 218 lbs 07/19/2017 Blood Pressure 1: 136/84 Code: 8480-6 BMI: 36.6 Code: 71978-6 Heart Rate 1: 88 bpm Height: 5'4" Respiratory Rate: 20 bpm SpO2: 97% Tempera ture: 36.7 (C) / 98.0 (F) Weight: 213 lbs 05/29/2017 Blood Pressure 1: 136/82 Code: 8480-6 BMI: 36.7 Code: 78884-8 Heart Rate 1: 72 bpm Height: 5'4" Respiratory Rate: 20 bpm SpO2: 97% Tempera ture: 36.9 (C) / 98.4 (F) Weight: 214 lbs 05/07/2017 Blood Pressure 1: 122/80 Code: 8480-6 BMI: 37.1 Code: 51859-7 Heart Rate 1: 80 bpm Height: 5'4" Respiratory Rate: 24 bpm SpO2: 96% Tempera ture: 36.1 (C) / 97.0 (F) Weight: 216 lbs 03/18/2017 BMI: 36.7 Code: 63927-6 Heart Rate 1: 80 bpm Height: 5 '4" Respiratory Rate: 22 bpm SpO2: 95% Temperature: 36.9 (C) / 98.4 (F) Weight: 214 lbs 02/27/2017 Blood Pressure 1: 146/94 Code: 8480-6 BMI: 36.6 Code: 69613-5 Heart Rate 1: 76 bpm Height: 5'4" Respiratory Rate: 22 bpm SpO2: 97% Tempera ture: 36.6 (C) / 97.9 (F) Weight: 213 lbs 02/22/2017 Blood Pressure 1: 126/90 Code: 8480-6 BMI: 36.4 Code: 53015-6 Heart Rate 1: 84 bpm Height: 5'4" Respiratory Rate: 22 bpm SpO2: 95% Tempera ture: 36.9 (C) / 98.4 (F) Weight: 212 lbs 01/23/2017 Blood Pressure 1: 146/82 Code: 8480-6 BMI: 37.6 Code: 09446-6 Heart Rate 1: 96 bpm Height: 5'4" Respiratory Rate: 20 bpm SpO2: 96% Tempera ture: 36.9 (C) / 98.4 (F) Weight: 219 lbs 12/20/2016 Blood Pressure 1: 126/70 Code: 8480-6 BMI: 37.2 Code: 43712-9 Heart Rate 1: 76 bpm Height: 5'4" Respiratory Rate: 22 bpm SpO2: 95% Tempera ture: 36.6 (C) / 97.8 (F) Weight: 217 lbs 10/08/2016 Blood Pressure 1: 128/82 Code: 8480-6 BMI: 36.9 Code: 09121-1 Heart Rate 1: 76 bpm Height: 5'4" Respiratory Rate: 20 bpm SpO2: 95% Tempera ture: 37.0 (C) / 98.6 (F) Weight: 215 lbs 09/19/2016 Blood Pressure 1: 144/78 Code: 8480-6 BMI: 37.8 Code: 21122-2 Heart Rate 1: 76 bpm Height: 5'4" Respiratory Rate: 22 bpm SpO2: 95% Tempera ture: 37.0 (C) / 98.6 (F) Weight: 220 lbs 08/20/2016 Blood Pressure 1: 140/86 Code: 8480-6 BMI: 37.4 Code: 18381-3 Heart Rate 1: 80 bpm Height: 5'4" Respiratory Rate: 20 bpm SpO2: 95% Tempera ture: 36.9 (C) / 98.4 (F) Weight: 218 lbs 06/19/2016 Blood Pressure 1: 124 Code: 8480-6 BMI: 37.8 Code: 84298-3 Heart Rate 1: 74 bpm Height: 5'4" Respiratory Rate: 24 bpm SpO2: 96% Tempera ture: 36.9 (C) / 98.4 (F) Weight: 220 lbs 06/04/2016 Blood Pressure 1: 124 Code: 8480-6 BMI: 38.8 Code: 19503-3 Heart Rate 1: 72 bpm Height: 5'4" Respiratory Rate: 24 bpm SpO2: 95% Tempera ture: 36.8 (C) / 98.2 (F) Weight: 226 lbs 05/02/2016 Blood Pressure 1: 136/90 Code: 8480-6 BMI: 37.6 Code: 77748-5 Heart Rate 1: 72 bpm Height: 5'4" Respiratory Rate: 24 bpm SpO2: 96% Tempera ture: 36.9 (C) / 98.4 (F) Weight: 219 lbs 04/03/2016 Blood Pressure 1: 126/78 Code: 8480-6 BMI: 38.1 Code: 06867-9 Heart Rate 1: 72 bpm Height: 5'4" Respiratory Rate: 22 bpm SpO2: 94% Tempera ture: 36.9 (C) / 98.4 (F) Weight: 222 lbs 02/29/2016 Blood Pressure 1: 132/78 Code: 8480-6 Heart Rate 1: 78 bpm Height: Respiratory Rate: 24 bpm SpO2: 95% Temperature: 36.4 (C) / 97.6 (F) We ight: 02/02/2016 Blood Pressure 1: 12478 Code: 8480-6 BMI: 37.6 Code: 65841-0 Heart Rate 1: 76 bpm Height: 5'4" Respiratory Rate: 20 bpm SpO2: 95% Tempera ture: 36.8 (C) / 98.2 (F) Weight: 219 lbs 01/05/2016 Blood Pressure 1: 126/70 Code: 8480-6 BMI: 37.1 Code: 44047-2 Heart Rate 1: 76 bpm Height: 5'4" Respiratory Rate: 20 bpm Temperature: 36 .6 (C) / 97.8 (F) Weight: 216 lbs 12/05/2015 Blood Pressure 1: 126/72 Code: 8480-6 BMI: 36.9 Code: 32904-6 Heart Rate 1: 92 bpm Height: 5'4" Respiratory Rate: 20 bpm Temperature: 36 .7 (C) / 98.1 (F) Weight: 215 lbs 10/26/2015 Blood Pressure 1: 142/80 Code: 8480-6 BMI: 36.4 Code: 99664-1 Heart Rate 1: 82 bpm Height: 5'4" Respiratory Rate: 24 bpm SpO2: 92% Tempera ture: 35.9 (C) / 96.7 (F) Weight: 212 lbs 10/05/2015 Blood Pressure 1: 136/82 Code: 8480-6 Heart Rate 1: 80 bpm Respiratory Rate: 18 bpm SpO2: 98% Temperature: 35.7 (C) / 96.3 (F) We ight: 214 lbs 09/15/2015 Blood Pressure 1: 116/80 Code: 8480-6 BMI: 34.6 Code: 96939-1 Heart Rate 1: 76 bpm Height: 5'6" Respiratory Rate: 20 bpm Temperature: 36 .6 (C) / 97.9 (F) Weight: 211 lbs 08/24/2015 Blood Pressure 1: 124/80 Code: 8480-6 BMI: 34.1 Code: 58830-8 Heart Rate 1: 68 bpm Height: 5'6" Respiratory Rate: 20 bpm Temperature: 36 .8 (C) / 98.3 (F) Weight: 208 lbs 07/05/2015 Blood Pressure 1: 114/78 Code: 8480-6 BMI: 33.9 Code: 02291-9 Heart Rate 1: 80 bpm Height: 5'6" Respiratory Rate: 20 bpm Temperature: 36 .6 (C) / 97.9 (F) Weight: 207 lbs 06/06/2015 Blood Pressure 1: 122/78 Code: 8480-6 BMI: 34.1 Code: 19417-8 Heart Rate 1: 76 bpm Height: 5'6" Respiratory Rate: 24 bpm SpO2: 96% Tempera ture: 36.4 (C) / 97.6 (F) Weight: 208 lbs 05/23/2015 Blood Pressure 1: 124/78 Code: 8480-6 Heart Rate 1: 76 bpm Respiratory Rate: 24 bpm SpO2: 93% Temperature: 36.8 (C) / 98.2 (F) We ight: 212 lbs 05/05/2015 Blood Pressure 1: 136/80 Code: 8480-6 BMI: 35.4 Code: 58175-4 Heart Rate 1: 76 bpm Height: 5'6" Respiratory Rate: 28 bpm Temperature: 37 .0 (C) / 98.6 (F) Weight: 216 lbs 03/30/2015 Blood Pressure 1: 132/86 Code: 8480-6 BMI: 35.2 Code: 37711-7 Heart Rate 1: 84 bpm Height: 5'6" Respiratory Rate: 24 bpm Temperature: 36 .7 (C) / 98.0 (F) Weight: 215 lbs 02/03/2015 Blood Pressure 1: 122/74 Code: 8480-6 BMI: 35.7 Code: 71527-1 Heart Rate 1: 84 bpm Height: 5'6" Respiratory Rate: 20 bpm Temperature: 36 .9 (C) / 98.5 (F) Weight: 218 lbs 12/29/2014 Blood Pressure 1: 132/80 Code: 8480-6 BMI: 35.1 Code: 86643-7 Heart Rate 1: 80 bpm Height: 5'6" Respiratory Rate: 20 bpm Temperature: 36 .6 (C) / 97.8 (F) Weight: 214 lbs 09/02/2014 Blood Pressure 1: 128/92 Code: 8480-6 BMI: 34.7 Code: 70232-5 Heart Rate 1: 84 bpm Height: 5'6" Respiratory Rate: 26 bpm Temperature: 36 .8 (C) / 98.2 (F) Weight: 212 lbs 08/25/2014 Blood Pressure 1: 124/80 Code: 8480-6 BMI: 34.7 Code: 12403-7 Heart Rate 1: 78 bpm Height: 5'6" Respiratory Rate: 22 bpm SpO2: 97% Tempera ture: 36.6 (C) / 97.8 (F) Weight: 212 lbs 04/01/2014 Blood Pressure 1: 142/84 Code: 8480-6 BMI: 34.4 Code: 64303-0 Heart Rate 1: 74 bpm Height: 5'5" Respiratory Rate: 20 bpm Temperature: 36 .4 (C) / 97.6 (F) Weight: 207 lbs 03/16/2014 Blood Pressure 1: 142/90 Code: 8480-6 BMI: 34.6 Code: 13451-0 Heart Rate 1: 76 bpm Height: 5'5" Respiratory Rate: 24 bpm Temperature: 36 .5 (C) / 97.7 (F) Weight: 208 lbs 03/09/2014 Blood Pressure 1: 116/70 Code: 8480-6 BMI: 35.3 Code: 65957-4 Heart Rate 1: 72 bpm Height: 5'5" [...] 1: 128/86 Code: 8480-6 BMI: 34.3 Code: 01302-8 Heart Rate 1: 84 bpm Height: 5'5" Respiratory Rate: 20 bpm Temperature: 36 .7 (C) / 98.0 (F) Weight: 206 lbs 12/23/2013 Blood Pressure 1: 122/70 Code: 8480-6 BMI: 34.3 Code: 85268-3 Heart Rate 1: 68 bpm Height: 5'5" Respiratory Rate: 20 bpm Temperature: 36 .8 (C) / 98.2 (F) Weight: 206 lbs 10/05/2013 Blood Pressure 1: 118/76 Code: 8480-6 BMI: 34.1 Code: 08338-6 Heart Rate 1: 68 bpm Height: 5'5" Respiratory Rate: 20 bpm SpO2: 98% Tempera ture: 36.6 (C) / 97.9 (F) Weight: 205 lbs 08/04/2013 Blood Pressure 1: 126/82 Code: 8480-6 BMI: 33.3 Code: 04015-2 Heart Rate 1: 76 bpm Height: 5'5" Respiratory Rate: 20 bpm Temperature: 36 .8 (C) / 98.2 (F) Weight: 200 lbs 07/03/2013 Blood Pressure 1: 124/82 Code: 8480-6 BMI: 33.3 Code: 67306-5 Heart Rate 1: 72 bpm Height: 5'5" Respiratory Rate: 22 bpm Temperature: 36 .1 (C) / 97.0 (F) Weight: 200 lbs 05/27/2013 Blood Pressure 1: 126 Code: 8480-6 Heart Rate 1: 74 bpm Respiratory Rate: 20 bpm Temperature: 36.0 (C) / 96.8 (F) Weight: 199 lbs 04/06/2013 Blood Pressure 1: 118/80 Code: 8480-6 BMI: 35.2 Code: 63559-7 Heart Rate 1: 80 bpm Height: 5'4" Respiratory Rate: 20 bpm Temperature: 37 .4 (C) / 99.3 (F) Weight: 205 lbs 11/10/2012 Blood Pressure 1: 128/82 Code: 8480-6 Heart Rate 1: 84 bpm Respiratory Rate: 20 bpm Temperature: 36.7 (C) / 98.0 (F) Weight: 199 lbs 09/02/2012 Blood Pressure 1: 116/82 Code: 8480-6 BMI: 34.2 Code: 66640-7 Heart Rate 1: 88 bpm Height: 5'4" Respiratory Rate: 22 bpm Temperature: 36 .6 (C) / 97.8 (F) Weight: 199 lbs 08/04/2012 Blood Pressure 1: 128/74 Code: 8480-6 BMI: 34.0 Code: 58144-4 Heart Rate 1: 92 bpm Height: 5'4" Respiratory Rate: 20 bpm Temperature: 36 .4 (C) / 97.5 (F) Weight: 198 lbs 07/21/2012 Blood Pressure 1: 124/86 Code: 8480-6 Heart Rate 1: 116 bpm Respiratory Rate: 24 bpm Temperature: 36.8 (C) / 98.2 (F) 07/02/2012 Blood Pressure 1: 116/88 Code: 8480-6 BMI: 33.6 Code: 40950-4 Heart Rate 1: 76 bpm Height: 5'4" Respiratory Rate: 20 bpm Temperature: 36 .8 (C) / 98.3 (F) Weight: 196 lbs 06/24/2012 Blood Pressure 1: 124/80 Code: 8480-6 BMI: 34.3 Code: 78772-1 Heart Rate 1: 72 bpm Height: 5'4" SpO2: 96% Temperature: 36.3 (C) / 97.3 (F) Weight: 200 lbs 05/20/2012 Blood Pressure 1: 11688 Code: 8480-6 BMI: 33.8 Code: 84358-9 Heart Rate 1: 80 bpm Height: 5'4" Respiratory Rate: 22 bpm Temperature: 36 .9 (C) / 98.4 (F) Weight: 197 lbs 05/08/2012 Blood Pressure 1: 128/86 Code: 8480-6 BMI: 33.8 Code: 36260-3 Heart Rate 1: 76 bpm Height: 5'4" Respiratory Rate: 26 bpm SpO2: 95% Tempera ture: 36.1 (C) / 97.0 (F) Weight: 197 lbs 04/22/2012 Blood Pressure 1: 106/64 Code: 8480-6 BMI: 33.8 Code: 40988-3 Heart Rate 1: 70 bpm Height: 5'4" Temperature: 36.1 (C) / 97.0 (F) Weight: 197 lbs 02/13/2012 Blood Pressure 1: 126/82 Code: 8480-6 BMI: 34.7 Code: 14463-3 Heart Rate 1: 64 bpm Height: 5'4" Respiratory Rate: 20 bpm Temperature: 36 .6 (C) / 97.8 (F) Weight: 202 lbs 01/28/2012 Blood Pressure 1: 116/80 Code: 8480-6 BMI: 34.7 Code: 30077-2 Heart Rate 1: 76 bpm Height: 5'4" Respiratory Rate: 20 bpm Temperature: 36 .8 (C) / 98.3 (F) Weight: 202 lbs 12/26/2011 Blood Pressure 1: 132/82 Code: 8480-6 BMI: 36.0 Code: 10331-7 Heart Rate 1: 68 bpm Height: 5'4" Respiratory Rate: 22 bpm Temperature: 36 .7 (C) / 98.0 (F) Weight: 210 lbs 11/14/2011 Blood Pressure 1: 124/80 Code: 8480-6 BMI: 36.4 Code: 98585-1 Heart Rate 1: 76 bpm Height: 5'4" Respiratory Rate: 20 bpm Temperature: 36 .8 (C) / 98.2 (F) Weight: 212 lbs 09/12/2011 Blood Pressure 1: 108/74 Code: 8480-6 BMI: 37.1 Code: 71341-4 Heart Rate 1: 72 bpm Height: 5'4" Respiratory Rate: 20 bpm Temperature: 37 .0 (C) / 98.6 (F) Weight: 216 lbs 08/15/2011 Blood Pressure 1: 122/80 Code: 8480-6 BMI: 36.9 Code: 20990-9 Heart Rate 1: 76 bpm Height: 5'4" Respiratory Rate: 20 bpm Temperature: 36 .2 (C) / 97.1 (F) Weight: 215 lbs 08/09/2011 Blood Pressure 1: 112/78 Code: 8480-6 BMI: 36.9 Code: 81943-6 Heart Rate 1: 68 bpm Height: 5'4" Respiratory Rate: 20 bpm Temperature: 36 .7 (C) / 98.0 (F) Weight: 215 lbs 07/03/2011 Blood Pressure 1: 140/94 Code: 8480-6 BMI: 36.2 Code: 35799-1 Heart Rate 1: 68 bpm Height: 5'4" Temperature: 36.0 (C) / 96.8 (F) Weight: 211 lbs 06/04/2011 Blood Pressure 1: 124/70 Code: 8480-6 BMI: 36.7 Code: 40723-2 Heart Rate 1: 68 bpm Height: 5'4" Respiratory Rate: 20 bpm Temperature: 36 .6 (C) / 97.9 (F) Weight: 214 lbs 05/03/2011 Blood Pressure 1: 130/76 Code: 8480-6 BMI: 36.4 Code: 50352-0 Heart Rate 1: 74 bpm Height: 5'5" Temperature: 36.2 (C) / 97.2 (F) Weight: 219 lbs 04/05/2011 Blood Pressure 1: 124/86 Code: 8480-6 BMI: 35.9 Code: 92585-1 Heart Rate 1: 76 bpm Height: 5'6" Respiratory Rate: 22 bpm Temperature: 36 .3 (C) / 97.3 (F) Weight: 219 lbs 03/08/2011 Blood Pressure 1: 112/78 Code: 8480-6 BMI: 35.1 Code: 01977-1 Heart Rate 1: 80 bpm Height: 5'6" Respiratory Rate: 26 bpm Temperature: 36 .9 (C) / 98.4 (F) Weight: 214 lbs 01/24/2011 Blood Pressure 1: 110/82 Code: 8480-6 BMI: 35.6 Code: 06261-2 Heart Rate 1: 80 bpm Height: 5'6" Temperature: 36.1 (C) / 97.0 (F) Weight: 217 lbs 01/02/2011 Blood Pressure 1: 106/72 Code: 8480-6 BMI: 35.6 Code: 75683-2 Heart Rate 1: 76 bpm Height: 5'6" [...] 1: 120/74 Code: 8480-6 BMI: 35.9 Code: 39760-6 Heart Rate 1: 72 bpm Height: 5'5" Temperature: 36.3 (C) / 97.4 (F) Weight: 216 lbs 09/19/2010 Blood Pressure 1: 124/80 Code: 8480-6 BMI: 35.4 Code: 88875-4 Heart Rate 1: 76 bpm Height: 5'5" [...] 1: 122/78 Code: 8480-6 BMI: 37.4 Code: 27361-4 Heart Rate 1: 84 bpm Height: 5'5" [...] 10/30/2017 follow up 10/23/2017 Hospital fwup from [facility] Annual Checkup 09/17/2017 Wellness Physical fo [...] up 10/26/2015 ER visit from at [facility] for COPD Exacerbation follow up 10/05/2015 ER Visit gait abnormality 09/15/2015 Patient requesting kelly pineda paperwork to be filled out disturbances of thinking 08/24/2015 follow up 07/05/2015 4wk fwup follow up 06/06/2015 [facility] cough 05/23/2015 follow up 05/05/2015 dyspnea 03/30/2015 [facility] needs new orde r for O2 abdominal pain 02/03/2015 cyst 12/29/2014 vs abscess follow up 09/02/2014 [facility] headache 08/25/2014 facial drooping follow up 04/01/2014 ER follow up 03/16/2014 1wk fwup follow up 03/09/2014 1mo fwup and bronchi tis fwup follow up 03/03/2014 2 day follow up 03/01/2014 ER follow up 02/09/2014 [facility] gastroesophageal reflux 12/23/2013 painful urination [...] up 08/04/2012 2wk fwup follow up 07/21/2012 [facility]--[facility] an sore throat 07/02/2012 headache [...] up 10/18/[address] Medrano last w [facility], having increased allergy symptoms. Would like steroid [...] 1 month f/u follow up 12/07/2009 [address] [facility], done with PT--finished about 2wks ago follow up 11/08/2009 2wk fwup follow up 10/24/2009 hosp fwup ~generic 07/25/2009 bilateral earlobe re dness/swelling, pain radiating into neck, refill Demerol ~generic 05/26/2009 FALLING A LOT, SAVEL LA NOT HELPING FIBROMYALGIA PAIN, LT HAND LACERATION-FELL INTO NAIL 05/25/09 Encounters Encounter Performer Location Codes Date ([id number]) OFFICE/OUTPATIENT VISIT EST Diagnosis: Acute bronchitis[ICD10: J20.9] Diagnosis: Colitis[ICD10: K52.9] Belia REID [facility] CPT-4: 19563 06/16/2019 ([id number]) OFFICE/OUTPATIENT VISIT EST Diagnosis: Diarrhea[ICD10: R19.7] Diagnosis: Abdominal bloating[ICD10: R14.0] Belia Reid [facility] CPT- 4: 29473 06/08/2019 ([id number]) OFFICE/OUTPATIENT VISIT EST Diagnosis: Acute febrile illness[ICD10: R50.9] Diagnosis: Colitis[ICD10: K52.9] Belia Reid [facility] CPT-4: 55655 05/26/2019 ([id number]) OFFICE/OUTPATIENT VISIT EST Diagnosis: Chronic obstructive pulmonary disease, unspecified[ICD10: J44.9] Diagnosis: Pulmonary fibrosis[ICD10: J84.10] Diagnosis: Intermittent stridor[ICD10: R06.1] Diagnosis: Muscle weakness[ICD10: M62.81] Belia REID [facility] CPT-4: 05043 05/13/2019 ([id number]) OFFICE/OUTPATIENT VISIT EST Diagnosis: Stridor[ICD10: R06.1] Diagnosis: COUGH[ICD10: R05] Belia REID [facility] CPT-4: 18635 05/06/2019 ([id number]) OFFICE/OUTPATIENT VISIT EST Diagnosis: Stridor[ICD10: R06.1] Diagnosis: Muscle, jerky movements (uncontrolled)[ICD10: G25.5] Belia REID DO [facility] CPT-4: 03246 04/29/2019 ([id number]) OFFICE/OUTPATIENT VISIT EST Diagnosis: Upper respiratory infection[ICD10: J06.9] Diagnosis: Flank pain[ICD10: R10.9] Diagnosis: Weight gain[ICD10: R63.5] Pattie AMBRIZ [facility] CPT-4: 14563 04/16/2019 ([id number]) OFFICE/OUTPATIENT VISIT EST Diagnosis: Generalized pruritus[ICD10: L29.9] Belia REID [facility] CPT-4: 42708 04/08/2019 ([id number]) OFFICE/OUTPATIENT VISIT EST Diagnosis: Acute bursitis of left shoulder[ICD10: M75.52] Diagnosis: Cervicalgia[ICD10: M54.2] Diagnosis: Chest wall pain[ICD10: R07.89] Belia REID [facility] CPT-4: 69952 01/22/2019 ([id number]) OFFICE/OUTPATIENT VISIT EST Diagnosis: Abdominal pain[ICD10: R10.9] Diagnosis: Pyelonephritis[ICD10: N12] Pattie DOMINGUEZ [facility] CPT-4: 91094 01/07/2019 ([id number]) OFFICE/OUTPATIENT VISIT EST Diagnosis: Low back pain[ICD10: M54.5] Diagnosis: Left lumbar radiculopathy[ICD10: M54.16] Diagnosis: Left flank pain[ICD10: R10.9] Diagnosis: Left lower quadrant pain[ICD10: R10.32] Diagnosis: FLU VACCINE[ICD10: Z23] Belia RFEDERICK [facility] CPT-4: 57998 12/24/2018 ([id number]) OFFICE/OUTPATIENT VISIT EST Diagnosis: Migraine, unspecified, not intractable, without status migrainosus[ICD10: G43.909] Diagnosis: Fibromyalgia[ICD10: M79.7] Belia DOMINGUEZ [facility] CPT-4: 46454 11/20/2018 ([id number]) OFFICE/OUTPATIENT VISIT EST Diagnosis: Migraine, unspecified, intractable, without status migrainosus[ICD10: G43.919] Diagnosis: Acute sinusitis, unspecified[ICD10: J01.90] Pattie REID [facility] CPT-4: 98357 11/04/2018 ([id number]) OFFICE/OUTPATIENT VISIT EST Diagnosis: Pain in left wrist[ICD10: M25.532] Diagnosis: Other dorsalgia[ICD10: M54.89] Pattie REID [facility] CPT-4: 05702 09/08/2018 ([id number]) OFFICE/OUTPATIENT VISIT EST Diagnosis: Acute stress reaction[ICD10: F43.0] Diagnosis: Pruritus, unspecified[ICD10: L29.9] 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, 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] Belia REID DO [facility] CPT-4: 02120 08/20/2018 ([id number]) OFFICE/OUTPATIENT VISIT EST Diagnosis: Hypotension due to drugs[ICD10: I95.2] Diagnosis: Paroxysmal atrial fibrillation[ICD10: I48.0] Diagnosis: Localized edema[ICD10: R60.0] Belia REID DO [facility] CPT-4: 33924 06/19/2018 ([id number]) OFFICE/OUTPATIENT VISIT EST Diagnosis: Generalized hyperhidrosis[ICD10: R61] Diagnosis: Essential (primary) hypertension[ICD10: I10] Diagnosis: Supraventricular tachycardia[ICD10: I47.1] Belia REID [employer] [facility] CPT-4: 75704 06/09/2018 ([id number]) OFFICE/OUTPATIENT VISIT EST Diagnosis: Stridor[ICD10: R06.1] Diagnosis: Dependence on supplemental oxygen[ICD10: Z99.81] Diagnosis: Weakness[ICD10: R53.1] Diagnosis: Supraventricular tachycardia[ICD10: I47.1] Belia REID DO [facility] CPT-4: 53859 05/21/2018 ([id number]) OFFICE/OUTPATIENT VISIT EST Diagnosis: Cervical disc disorder with radiculopathy, unspecified cervical region[ICD10: M50.10] Belia REID DO [facility] CPT-4: 67823 04/16/2018 ([id number]) OFFICE/OUTPATIENT VISIT EST Diagnosis: Migraine, unspecified, intractable, without status migrainosus[ICD10: G43.919] Diagnosis: Fibromyalgia[ICD10: M79.7] Pattie DAILEYER [employer] [facility] CPT-4: 89787 04/01/2018 ([id number]) NURSE/OUTPATIENT VISIT EST Diagnosis: Hematuria, unspecified[ICD10: R31.9] Diagnosis: Dysuria[ICD10: R30.0] Belia REID DO [facility] CPT-4: 62497 03/17/2018 ([id number]) OFFICE/OUTPATIENT VISIT EST Diagnosis: Erythema intertrigo[ICD10: L30.4] Diagnosis: Chronic obstructive pulmonary disease with (acute) exacerbation[ICD10: J44.1] Diagnosis: Type 2 diabetes mellitus with hyperglycemia[ICD10: E11.65] Belia REID DO [facility] CPT-4: 25021 03/06/2018 ([id number]) OFFICE/OUTPATIENT VISIT EST Diagnosis: Cervicalgia[ICD10: M54.2] Pattie AMBRIZ [facility] CPT-4: 46988 02/05/2018 ([id number]) OFFICE/OUTPATIENT VISIT EST Diagnosis: Candidiasis of skin and nail[ICD10: B37.2] Diagnosis: Cervicalgia[ICD10: M54.2] Pattie AMBRIZ [facility] CPT-4: 93961 01/20/2018 ([id number]) OFFICE/OUTPATIENT VISIT EST Diagnosis: Pain in thoracic spine[ICD10: M54.6] Diagnosis: Radiculopathy, thoracic region[ICD10: M54.14] Belia REID DO [facility] CPT-4: 17006 12/25/2017 ([id number]) OFFICE/OUTPATIENT VISIT EST Diagnosis: Pain in thoracic spine[ICD10: M54.6] Diagnosis: Other muscle spasm[ICD10: M62.838] Diagnosis: FLU VACCINE[ICD10: Z23] Diagnosis: PNEUMOCOCCAL VACCINE[ICD10: Z23] Belia REID DO [facility] CPT-4: 69210 12/17/2017 ([id number]) OFFICE/OUTPATIENT VISIT EST Diagnosis: Chronic obstructive pulmonary disease with (acute) exacerbation[ICD10: J44.1] Belia REID DO [facility] CPT- 4: 58516 10/30/2017 ([id number]) OFFICE/OUTPATIENT VISIT EST Diagnosis: Chronic obstructive pulmonary disease with acute lower respiratory infection[ICD10: J44.0] Diagnosis: Mild intermittent asthma with (acute) exacerbation[ICD10: J45.21] Belia REID DO [facility] CPT-4: 52470 10/23/2017 ([id number]) NURSE/OUTPATIENT VISIT EST Diagnosis: Migraine, unspecified, not intractable, without status migrainosus[ICD10: G43.909] Belia REID DO [facility] CPT - 4: 75085 08/26/2017 ([id number]) OFFICE/OUTPATIENT VISIT EST Diagnosis: Urinary tract infection, site not specified[ICD10: N39.0] Diagnosis: Encounter for screening for osteoporosis[ICD10: Z13.820] Diagnosis: Encounter for screening mammogram for malignant neoplasm of breast[ICD10: Z12.31] Diagnosis: Acute bronchitis, unspecified[ICD10: J20.9] Pattie REID DO [facility] CPT-4: 12117 07/19/2017 ([id number]) OFFICE/OUTPATIENT VISIT EST Diagnosis: Rash and other nonspecific skin eruption[ICD10: R21] Pattie REID DO [facility] CPT-4: 91516 05/29/2017 ([id number]) OFFICE/OUTPATIENT VISIT EST Diagnosis: Diarrhea, unspecified[ICD10: R19.7] Diagnosis: Tinea corporis[ICD10: B35.4] Diagnosis: Tinea cruris[ICD10: B35.6] Diagnosis: Migraine, unspecified, not intractable, without status migrainosus[ICD10: G43.909] Belia REID [facility] CPT - 4: 23235 05/07/2017 ([id number]) OFFICE/OUTPATIENT VISIT EST Diagnosis: Stridor[ICD10: R06.1] Diagnosis: Chronic obstructive pulmonary disease with (acute) exacerbation[ICD10: J44.1] Belia REID [facility] CPT- 4: 28441 03/18/2017 ([id number]) OFFICE/OUTPATIENT VISIT EST Diagnosis: Type 2 diabetes mellitus with hyperglycemia[ICD10: E11.65] Belia REID [facility] CPT-4: 36715 02/27/2017 OFFICE/OUTPATIENT VISIT EST Diagnosis: Type 2 diabetes mellitus with hyperglycemia[ICD10: E11.65] Pattie REID DO [facility] CPT-4: 40498 02/22/2017 ([id number]) OFFICE/OUTPATIENT VISIT EST Diagnosis: Urinary tract infection, site not specified[ICD10: N39.0] Diagnosis: Pneumonia, unspecified organism[ICD10: J18.9] Diagnosis: Type 2 diabetes mellitus with hyperglycemia[ICD10: E11.65] Belia REID DO [facility] CPT-4: 32347 01/23/2017 ([id number]) OFFICE/OUTPATIENT VISIT EST Diagnosis: Type 2 diabetes mellitus with hyperglycemia[ICD10: E11.65] Diagnosis: Localized edema[ICD10: R60.0] Diagnosis: PNEUMOCOCCAL VACCINE[ICD10: Z23] Diagnosis: FLU VACCINE[ICD10: Z23] Belia FREDERICK [facility] CPT-4: 24222 12/20/2016 OFFICE/OUTPATIENT VISIT EST Diagnosis: Pain in thoracic spine[ICD10: M54.6] Diagnosis: Low back pain[ICD10: M54.5] Diagnosis: Cervicalgia[ICD10: M54.2] Diagnosis: Cough[ICD10: R05] Celeste Ferreira BELIA REID [facility] CPT-4: 73642 10/08/2016 ([id number]) OFFICE/OUTPATIENT VISIT EST Diagnosis: Primary insomnia[ICD10: F51.01] Diagnosis: Migraine, unspecified, not intractable, without status migrainosus[ICD10: G43.909] Diagnosis: Type 2 diabetes mellitus with hyperglycemia[ICD10: E11.65] Belia REID DO [facility] CPT-4: 74924 09/19/2016 ([id number]) OFFICE/OUTPATIENT VISIT EST Diagnosis: Migraine, unspecified, not intractable, without status migrainosus[ICD10: G43.909] Diagnosis: Generalized abdominal pain[ICD10: R10.84] Diagnosis: Cough[ICD10: R05] Belia Franklin REID [facility] CPT-4: 03273 08/20/2016 ([id number]) OFFICE/OUTPATIENT VISIT EST Diagnosis: Chronic obstructive pulmonary disease, unspecified[ICD10: J44.9] Diagnosis: Stridor[ICD10: R06.1] Belia REID DO [facility] CPT-4: 56304 06/19/2016 ([id number]) OFFICE/OUTPATIENT VISIT EST Diagnosis: Chronic obstructive pulmonary disease, unspecified[ICD10: J44.9] Diagnosis: Personal history of urinary (tract) infections[ICD10: Z87.440] Belia REID DO [facility] CPT-4: 45965 06/04/2016 ([id number]) OFFICE/OUTPATIENT VISIT EST Diagnosis: Stridor[ICD10: R06.1] Diagnosis: Chronic obstructive pulmonary disease with acute lower respiratory infection[ICD10: J44.0] Diagnosis: Other specified diseases of intestine[ICD10: K63.89] Diagnosis: Cystitis, unspecified without hematuria[ICD10: N30.90] Belia REID DO [facility] CPT-4: 09872 05/02/2016 ([id number]) OFFICE/OUTPATIENT VISIT EST Diagnosis: Fibromyalgia[ICD10: M79.7] Diagnosis: Urinary tract infection, site not specified[ICD10: N39.0] Belia REID DO [facility] CPT-4: 48951 04/03/2016 ([id number]) OFFICE/OUTPATIENT VISIT EST Diagnosis: Unspecified asthma, uncomplicated[ICD10: J45.909] Diagnosis: Cough[ICD10: R05] Lidia REID DO [facility] T-4: 43988 02/29/2016 ([id number]) OFFICE/OUTPATIENT VISIT EST Diagnosis: Migraine, unspecified, intractable, without status migrainosus[ICD10: G43.919] Diagnosis: Urinary tract infection, site not specified[ICD10: N39.0] Belia REID DO [facility] CPT-4: 19339 02/02/2016 ([id number]) OFFICE/OUTPATIENT VISIT EST Diagnosis: Urinary tract infection, site not specified[ICD10: N39.0] Diagnosis: Unspecified abdominal pain[ICD10: R10.9] Diagnosis: Pain in thoracic spine[ICD10: M54.6] Diagnosis: Type 2 diabetes mellitus with diabetic neuropathic arthropathy[ICD10: E11.610] Belia Franklin CORNELLLINE Yuridia REID [facility] CPT-4: 71110 12/05/2015 ([id number]) OFFICE/OUTPATIENT VISIT EST Diagnosis: Chronic obstructive pulmonary disease with (acute) exacerbation[ICD10: J44.1] Diagnosis: Migraine, unspecified, not intractable, without status migrainosus[ICD10: G43.909] Lidia CORNELLLINE Yuridia REID [facility] CPT -4: 15350 10/26/2015 ([id number]) OFFICE/OUTPATIENT VISIT EST Diagnosis: Hematuria, unspecified[ICD10: R31.9] Diagnosis: Urinary tract infection, site not specified[ICD10: N39.0] Lidia HSUQUELINE BushraMayda FRANKLIN [facility] CPT-4: 66163 10/05/2015 OFFICE/OUTPATIENT VISIT EST Diagnosis: Chronic obstructive pulmonary disease, unspecified[ICD10: J44.9] Diagnosis: Muscle weakness (generalized)[ICD10: M62.81] Diagnosis: Polyneuropathy, unspecified[ICD10: G62.9] Diagnosis: Other intervertebral disc degeneration, 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] Diagnosis: Fibromyalgia[ICD10: M79.7] Belia Franklin HUSQUELINE Yuridia DOMINGUEZ [facility] CPT-4: 21036 09/15/2015 ([id number]) OFFICE/OUTPATIENT VISIT EST Diagnosis: Disorientation, unspecified[ICD10: R41.0] Diagnosis: Headache[ICD10: R51] Diagnosis: Paresthesia of skin[ICD10: R20.2] Lidia CORNELLHERNANDEZ Paredes Yuridia RIED [facility] CPT-4: 23855 08/24/2015 ([id number]) OFFICE/OUTPATIENT VISIT EST Diagnosis: Type 2 diabetes mellitus with hyperglycemia[ICD10: E11.65] Diagnosis: Chronic obstructive pulmonary disease with acute lower respiratory infection[ICD10: J44.0] Belia Franklin HSUQUELINE BushraMayda FRANKLIN [facility] CPT-4: 81257 07/05/2015 ([id number]) OFFICE/OUTPATIENT VISIT EST Diagnosis: Mild intermittent asthma with (acute) exacerbation[ICD10: J45.21] Diagnosis: Chronic obstructive pulmonary disease, unspecified[ICD10: J44.9] Belia REID DO [facility] CPT-4: 38596 06/06/2015 ([id number]) OFFICE/OUTPATIENT VISIT EST Diagnosis: Chronic obstructive pulmonary disease with (acute) exacerbation[ICD10: J44.1] Lidia REID DO [facility] CPT- 4: 14602 05/23/2015 ([id number]) OFFICE/OUTPATIENT VISIT EST Diagnosis: Type 2 diabetes mellitus with hyperglycemia[ICD10: E11.65] Diagnosis: Functional dyspepsia[ICD10: K30] Belia REID DO [facility] CPT-4: 92886 05/05/2015 ([id number]) OFFICE/OUTPATIENT VISIT EST Diagnosis: Type 2 diabetes mellitus with hyperglycemia[ICD10: E11.65] Diagnosis: Glycosuria[ICD10: R81] Diagnosis: Urinary tract infection, site not specified[ICD10: N39.0] Belia REID [facility] CPT-4: 41240 03/30/2015 ([id number]) OFFICE/OUTPATIENT VISIT EST Diagnosis: Generalized abdominal pain[ICD10: R10.84] Diagnosis: Diarrhea, unspecified[ICD10: R19.7] Diagnosis: Urinary tract infection, site not specified[ICD10: N39.0] Diagnosis: Gastro-esophageal reflux disease without esophagitis[ICD10: K21.9] Belia REID [facility] CPT-4: 66260 02/03/2015 ([id number]) OFFICE/OUTPATIENT VISIT EST Diagnosis: Other specified noninflammatory disorders of vagina[ICD10: N89.8] Diagnosis: Follicular disorder, unspecified[ICD10: L73.9] Diagnosis: Functional dyspepsia[ICD10: K30] Diagnosis: FLU VACCINE[ICD10: Z23] Belia FREDERICK [facility] CPT-4: 16804 12/29/2014 ([id number]) OFFICE/OUTPATIENT VISIT EST 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: 35964 09/02/2014 ([id number]) OFFICE/OUTPATIENT VISIT EST Diagnosis: Cervical radiculopathy[ICD9: 723.4] Diagnosis: Cervicalgia[ICD9: 723.1] Diagnosis: Degenerative disc disease, cervical[ICD9: 722.4] 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I[ICD9: 250.00] [facility]: 11046 04/01/2014 OFFICE/OUTPATIENT VISIT EST Diagnosis: Reactive airway disease[ICD9: 493.90] Belia REID [facility] CPT-4: 33755 03/16/2014 ([id number]) OFFICE/OUTPATIENT VISIT EST Diagnosis: BRONCHITIS, ACUTE[ICD9: 466.0] Diagnosis: Reactive airway disease[ICD9: 493.90] Belia REID [facility] CPT-4: 42316 03/09/2014 OFFICE/OUTPATIENT VISIT EST Diagnosis: BRONCHITIS, ACUTE[ICD9: 466.0] Diagnosis: WHEEZING[ICD9: 786.07] Huong Peguero [facility] CPT-4: 96369 03/03/2014 OFFICE/OUTPATIENT VISIT EST Diagnosis: BRONCHITIS, ACUTE[ICD9: 466.0] Diagnosis: WHEEZING[ICD9: 786.07] Huong Peguero [facility] CPT-4: 85784 03/01/2014 ([id number]) OFFICE/OUTPATIENT VISIT EST Diagnosis: GERD[ICD9: 530.81] Diagnosis: ARTHRALGIA-MULTIPLE SITES[ICD9: 719.49] Diagnosis: LUMB/LUMBOSAC DISC DEGEN[ICD9: 722.52] Diagnosis: - I - FIBROMYALGIA[ICD9: 729.1] Belia REID [facility] CPT-4: 70456 02/09/2014 ([id number]) OFFICE/OUTPATIENT VISIT EST Diagnosis: Peptic ulcer disease[ICD9: 533.90] Diagnosis: RESTLESS LEGS SYNDROME[ICD9: 333.94] Diagnosis: Neuropathy[ICD9: 355.9] Belia FREDERICK DO [facility] CPT-4: 87795 12/23/2013 ([id number]) OFFICE/OUTPATIENT VISIT EST Diagnosis: URINARY TRACT INFECTION[ICD9: 599.0] Belia REID DO [facility] CPT-4: 11648 10/30/2013 ([id number]) OFFICE/OUTPATIENT VISIT EST Diagnosis: Flank pain[ICD9: 789.00] Belia MARTINEZ [facility] CPT-4: 02204 10/21/2013 ([id number]) OFFICE/OUTPATIENT VISIT EST Diagnosis: INFLAMED SEBORR KERATOS[ICD9: 702.11] Diagnosis: Brachioradial pruritus[ICD9: 698.9] Diagnosis: ASTHMA NOS[ICD9: 493.90] Belia MARTINEZ [facility] CPT-4: 88388 10/05/2013 ([id number]) OFFICE/OUTPATIENT VISIT EST Diagnosis: HYPERTENSION[ICD9: 401.9] Diagnosis: - I - FIBROMYALGIA[ICD9: 729.1] Diagnosis: DIZZINESS/VERTIGO[ICD9: 780.4] Diagnosis: MIGRAINE NOS/NOT INTRCBL[ICD9: 346.90] Diagnosis: Diabetic peripheral neuropathy[ICD9: 250.60] Diagnosis: Flank pain[ICD9: 789.00] Belia MARTINEZ [facility] CPT-4: 22092 08/04/2013 ([id number]) OFFICE/OUTPATIENT VISIT EST Diagnosis: ALLERGIC RHINITIS[ICD9: 477.9] Belia REID DO [facility] CPT-4: 70494 07/13/2013 OFFICE/OUTPATIENT VISIT EST Diagnosis: URINARY TRACT INFECTION[ICD9: 599.0] Huong Osborne KRAIG REID DO [facility] CPT-4: 27479 07/03/2013 OFFICE/OUTPATIENT VISIT EST Diagnosis: HYPERTENSION[ICD9: 401.9] Diagnosis: URINARY TRACT INFECTION[ICD9: 599.0] Diagnosis: BACKACHE[ICD9: 724.5] Diagnosis: URINARY INCONTINENCE[ICD9: 788.30] Huong India CORNELLKIMI MARIE Yuridia REID [facility] CPT-4: 62522 05/27/2013 ([id number]) OFFICE/OUTPATIENT VISIT EST Diagnosis: Flank pain[ICD9: 789.00] Belia Oreisabellaannie HSUBELIA BushraMayda KIESHA POOLE [facility] CPT-4: 48046 05/25/2013 ([id number]) OFFICE/OUTPATIENT VISIT EST Diagnosis: B-COMPLEX DEFIC NEC[ICD9: 266.2] Belia Yandelnilson BELIA Yuridia REID [facility] CPT-4: 33437 05/04/2013 ([id number]) OFFICE/OUTPATIENT VISIT EST Diagnosis: ALLERGIC RHINITIS[ICD9: 477.9] Diagnosis: Vitamin B12 deficiency[ICD9: 266.2] Belia Yandelnilson THOMPSON Yuridia [facility]: 45004 04/17/2013 ([id number]) OFFICE/OUTPATIENT VISIT EST 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I[ICD9: 250.00] Diagnosis: URINARY TRACT INFECTION[ICD9: 599.0] Diagnosis: DIZZINESS/VERTIGO[ICD9: 780.4] Diagnosis: DIARRHEA[ICD9: 787.91] Belia Yandelnilson BRUNSON BushraMayda RALF Peguero [facility] CPT-4: 43640 04/06/2013 ([id number]) OFFICE/OUTPATIENT VISIT EST Diagnosis: URINARY TRACT INFECTION[ICD9: 599.0] Diagnosis: URINARY RETENTION[ICD9: 788.20] Belia Yandelnilson BRUNSON BushraMayda FRANKLIN [facility] CPT-4: 99740 11/10/2012 ([id number]) OFFICE/OUTPATIENT VISIT EST Diagnosis: TACHYCARDIA[ICD9: 785.0] Diagnosis: SYNCOPE AND COLLAPSE[ICD9: 780.2] Diagnosis: CONSCIOUSNS ALTERAT NEC[ICD9: 780.09] Belia CALVO BushraMayda FRANKLIN [facility] CPT-4: 91620 09/02/2012 OFFICE/OUTPATIENT VISIT EST Diagnosis: TACHYCARDIA[ICD9: 785.0] Diagnosis: SYNCOPE AND COLLAPSE[ICD9: 780.2] Beliahanna REID DO [facility] CPT-4: 22006 08/04/2012 ([id number]) OFFICE/OUTPATIENT VISIT EST Diagnosis: Loss of consciousness[ICD9: 780.09] Diagnosis: Tachycardia[ICD9: 785.0] Diagnosis: MALAISE AND FATIGUE[ICD9: 780.79] Belia REID [facility] CPT-4: 87625 07/21/2012 ([id number]) OFFICE/OUTPATIENT VISIT EST Diagnosis: BRONCHITIS, ACUTE[ICD9: 466.0] Diagnosis: ASTHMA NOS[ICD9: 493.90] Belia POOLE [facility] CPT-4: 97356 07/02/2012 ([id number]) OFFICE/OUTPATIENT VISIT EST Diagnosis: CEPHALGIA[ICD9: 784.0] Belia Peguero [facility] CPT-4: 09987 06/25/2012 ([id number]) OFFICE/OUTPATIENT VISIT EST Diagnosis: GERD[ICD9: 530.81] Diagnosis: DIARRHEA[ICD9: 787.91] Diagnosis: URINARY TRACT INFECTION[ICD9: 599.0] Diagnosis: ASTHMA NOS[ICD9: 493.90] Diagnosis: ALLERGIC RHINITIS[ICD9: 477.9] Belai REID [facility] CPT-4: 88166 06/24/2012 ([id number]) OFFICE/OUTPATIENT VISIT EST Diagnosis: MIGRAINE NOS/NOT INTRCBL[ICD9: 346.90] Diagnosis: TREMOR NEC[ICD9: 333.1] Diagnosis: CHRONIC PAIN SYNDROME[ICD9: 338.4] Belia BASS MARIE Yuridia REID [facility] CPT-4: 20929 05/20/2012 ([id number]) OFFICE/OUTPATIENT VISIT EST Diagnosis: DIZZINESS/VERTIGO[ICD9: 780.4] Diagnosis: PALPITATIONS[ICD9: 785.1] Diagnosis: TREMOR NEC[ICD9: 333.1] Diagnosis: ANXIETY STATE NOS[ICD9: 300.00] Diagnosis: POSTTRAUMATIC STRESS DISORDER[ICD9: 309.81] Belia REID [facility] CPT-4: 27533 05/08/2012 ([id number]) OFFICE/OUTPATIENT VISIT EST Diagnosis: MIGRAINE NOS/NOT INTRCBL[ICD9: 346.90] Diagnosis: FIBROMYALGIA[ICD9: 729.1] Diagnosis: SYNCOPE AND COLLAPSE[ICD9: 780.2] Diagnosis: Diabetic peripheral neuropathy[ICD9: 250.60] eBlia TomlinsonMayda FRANKLIN [facility] CPT-4: 20171 04/22/2012 OFFICE/OUTPATIENT VISIT EST Diagnosis: ROTATOR CUFF DIS NEC[ICD9: 726.19] Diagnosis: JOINT PAIN-SHLDER[ICD9: 719.41] Diagnosis: DYSPEPSIA[ICD9: 536.8] Belia CORNELLLINE BushraMayda RALF [facility] CPT-4: 38577 02/13/2012 ([id number]) OFFICE/OUTPATIENT VISIT EST Diagnosis: MIGRAINE NOS/NOT INTRCBL[ICD9: 346.90] Diagnosis: GERD[ICD9: 530.81] Diagnosis: DYSPEPSIA[ICD9: 536.8] Belia CORNELLLINE BushraMayda RALF [facility] CPT-4: 03172 01/28/2012 OFFICE/OUTPATIENT VISIT EST Diagnosis: CEPHALGIA[ICD9: 784.0] Diagnosis: MIGRAINE NOS/NOT INTRCBL[ICD9: 346.90] Diagnosis: GERD[ICD9: 530.81] Diagnosis: INSOMNIA NOS[ICD9: 780.52] Belia HSUQUELINE BushraMayda RAND DOMINGUEZ [facility] CPT-4: 11439 12/26/2011 ([id number]) OFFICE/OUTPATIENT VISIT EST Diagnosis: CEPHALGIA[ICD9: 784.0] Diagnosis: MIGRAINE NOS/NOT INTRCBL[ICD9: 346.90] Diagnosis: MALAISE AND FATIGUE[ICD9: 780.79] Diagnosis: FIBROMYALGIA[ICD9: 729.1] Diagnosis: ALLERGIC RHINITIS[ICD9: 477.9] Belia CORNELLLINE Bushra Mayda [facility] CPT-4: 70990 11/14/2011 ([id number]) OFFICE/OUTPATIENT VISIT EST Diagnosis: MALAISE AND FATIGUE[ICD9: 780.79] Diagnosis: MUSCLE WEAKNESS-GENERAL[ICD9: 728.87] Diagnosis: MIGRAINE NOS/NOT INTRCBL[ICD9: 346.90] Diagnosis: JOINT PAIN-SHLDER[ICD9: 719.41] Belia REID [facility] CPT-4: 40598 09/12/2011 ([id number]) OFFICE/OUTPATIENT VISIT EST Diagnosis: CONCUSSION[ICD9: 850.9] Diagnosis: Ataxia[ICD9: 781.3] Diagnosis: DIZZINESS/VERTIGO[ICD9: 780.4] Belia REID [facility] CPT-4: 81448 08/15/2011 ([id number]) OFFICE/OUTPATIENT VISIT EST Diagnosis: THROMBOPHLEBITIS[ICD9: 451.9] Diagnosis: Subacromial bursitis[ICD9: 726.19] Diagnosis: ALLERGIC RHINITIS[ICD9: 477.9] Diagnosis: Lipoma[ICD9: 214.9] [facility] 813[facility] 08/09/2011 ([id number]) OFFICE/OUTPATIENT VISIT EST Diagnosis: THROMBOPHLEBITIS[ICD9: 451.9] Diagnosis: Arm pain[ICD9: 729.5] Diagnosis: Clostridium difficile colitis[ICD9: 008.45] Diagnosis: URINARY TRACT INFECTION[ICD9: 599.0] [facility] 21718 07/03/2011 ([id number]) OFFICE/OUTPATIENT VISIT EST Diagnosis: ARTHRALGIA-MULTIPLE SITES[ICD9: 719.49] Diagnosis: Muscle cramp[ICD9: 729.82] Diagnosis: INSOMNIA NOS[ICD9: 780.52] [facility]: 46511 06/04/2011 OFFICE/OUTPATIENT VISIT EST Diagnosis: Headache[ICD9: 784.0] Diagnosis: Allergic rhinitis[ICD9: 477.9] [facility]: 90842 05/03/2011 OFFICE/OUTPATIENT VISIT EST Diagnosis: LUMB/LUMBOSAC DISC DEGEN[ICD9: 722.52] Diagnosis: MIGRAINE NOS/NOT INTRCBL[ICD9: 346.90] Diagnosis: CHRONIC PAIN SYNDROME[ICD9: 338.4] Diagnosis: RESTLESS LEGS SYNDROME[ICD9: 333.94] Belia REID [facility] CPT-4: 05860 04/05/2011 OFFICE/OUTPATIENT VISIT EST Diagnosis: MIGRAINE NOS/NOT INTRCBL[ICD9: 346.90] Diagnosis: GERD[ICD9: 530.81] Belia REID [facility] CPT-4: 36898 03/08/2011 OFFICE/OUTPATIENT VISIT EST Diagnosis: URINARY TRACT INFECTION[ICD9: 599.0] Diagnosis: Vertigo[ICD9: 780.4] Diagnosis: GERD[ICD9: 530.81] Belia REID [facility] CPT-4: 31831 01/24/2011 OFFICE/OUTPATIENT VISIT EST Diagnosis: Hypotension[ICD9: 458.9] Diagnosis: Syncopal episodes[ICD9: 780.2] Diagnosis: MIGRAINE NOS/NOT INTRCBL[ICD9: 346.90] Diagnosis: MALAISE AND FATIGUE[ICD9: 780.79] Belia Humphriesisabellaannie HSUKOFFIHERNANDEZ [facility] C[facility]: 28924 01/02/2011 OFFICE/OUTPATIENT VISIT EST Diagnosis: Tinea cruris[ICD9: 110.3] Diagnosis: Intertrigo[ICD9: 695.89] Diagnosis: MIGRAINE NOS/NOT INTRCBL[ICD9: 346.90] Belia Yandelisabellaannie HSUQ [facility] CPT-4: 15898 12/07/2010 OFFICE/OUTPATIENT VISIT EST Diagnosis: PALPITATIONS[ICD9: 785.1] Diagnosis: ANXIETY STATE NOS[ICD9: 300.00] [facility]PT-[facility]: 50593 11/16/2010 OFFICE/OUTPATIENT VISIT EST Diagnosis: URINARY TRACT INFECTION[ICD9: 599.0] Diagnosis: MIGRAINE NOS/NOT INTRCBL[ICD9: 346.90] Iraida CASILLAS [facility]: 13328 11/02/2010 OFFICE/OUTPATIENT VISIT EST Diagnosis: ALLERGIC RHINITIS[ICD9: 477.9] Diagnosis: ANXIETY STATE NOS[ICD9: 300.00] Belia [facility] CPT-4: 60172 10/18/2010 OFFICE/OUTPATIENT VISIT EST Belia [facility] CPT- 4: 17936 09/19/2010 OFFICE/OUTPATIENT VISIT EST Belia BRUNSON SMayda [facility] CPT- 4: 39055 09/06/2010 ([id number]) OFFICE/OUTPATIENT VISIT EST Belia CASILLAS [facility] CPT-4: 01840 08/10/2010 ([id number]) OFFICE/OUTPATIENT VISIT EST Belia CASILLAS [facility] CPT-4: 94864 05/11/2010 ([id number]) OFFICE/OUTPATIENT VISIT, EST Belia MEJIALINE [facility] CPT-4: 66118 04/06/2010 ([id number]) OFFICE/OUTPATIENT VISIT, EST Belia HSU QUELINE [facility] CPT-4: 83291 02/09/2010 ([id number]) OFFICE/OUTPATIENT VISIT, EST Belia HSU QU[facility]INE [facility] CPT-4: 51528 01/05/2010 ([id number]) OFFICE/OUTPATIENT VISIT, EST Belia HSU [facility] CPT-4: 15429 12/07/2009 ([id number]) OFFICE/OUTPATIENT VISIT, EST Belia HSU [facility] CPT-4: 67436 11/08/2009 ([id number]) OFFICE/OUTPATIENT VISIT, EST Belia HSU [facility] CPT-4: 48580 10/24/2009 ([id number]) OFFICE/OUTPATIENT VISIT, EST Belia HSU [facility] CPT-4: 23823 07/25/2009 ([id number]) OFFICE/OUTPATIENT VISIT, EST Belia HSU [facility] CPT-4: 00587 05/26/2009 Plan of Care Planned Activity Notes Codes Status Date Visit Diagnosis Plan: Acute bronchitis Discussion: Cov er with levaquin Increase SVNs with albuterol to QID Has oxygen using q HS routinely and prn To ER if oxygen levels drop or worsening respiratory symptoms ICD-9 : 466.0 ICD-10 : J20.9 06/16/2019 Visit Diagnosis Plan: Colitis Discussion: Levaquin/[place] gyl [place] Diet ICD-9 : 558.9 ICD-10 : K52.9 06/16/2019 Patient Education: Levaquin- [employer] Coupon [id number] [email or web address] Completed 06/16/2019 Visit Diagnosis Plan: Diarrhea Discussion: Vancomycin for 10 days and notify if not improving or worsening BLAND diet Hydrate ICD-9 : 787.91 ICD-10 : R19.7 06/08/2019 Appointment: Belia Reid WPtel: [facility] TELEMEDICINE 06/08/2019 Visit Diagnosis Plan: Acute febrile illness Discussion : Notify if worsens ICD-9 : 780.60 ICD-10 : R50.9 05/26/2019 Visit Diagnosis Plan: Colitis Discussion: Flagyl plus cipro to cover for both colitis and UTI Notify or to ER if worsening ICD-9 : 558.9 ICD-10 : K52.9 05/26/2019 Appointment: Belia Reid WPtel: [phone] TELEMEDICINE 05/26/2019 Appointment: Pattie Sotomayor [address] RESCHEDULED 05/18/2019 Visit Diagnosis Plan: Chronic obstructive pulmonary di sease, unspecified Discussion: Recommend pulmonary rehab Patient states she never went to pulmonary rehab due to cost as well as transportation issues Finish trelagy Stop singulair Decrease hydroxyzine to 25mg po q HS Fwup [address] scan of Chest results discussed ICD-9 : 496 ICD-10 : J44.9 05/13/2019 Appointment: Belia Reid WPtel: [address] [place], [place] [phone] Hospital Follow Up 05/13/2019 Visit Diagnosis Plan: COUGH Discussion: Check CT scan of chest ICD-9 : 786.2 ICD-10 : R05 05/06/2019 Visit Diagnosis Plan: Stridor Discussion: Add Trelagy 1 p daily Add Singulair 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 ICD-9 : 786.1 ICD-10 : R06.1 05/06/2019 Appointment: Belia Reid WPtel: [address] [place], [place] [phone] FOLLOW UP 05/06/2019 Patient Education: Singulair- [employer] Coupon [phone] [email or web address] Completed 05/06/2019 Appointment: Belia Reid WPtel: [address] [place] [address] [place] RESCHEDULED 04/30/2019 Visit Diagnosis Plan: Muscle, jerky movements (uncontr olled) Discussion: Decrease gabapentin to 600mg once daily ICD-9 : 333.5 ICD-10 : G25.5 04/29/2019 Visit Diagnosis Plan: Stridor Discussion: Continue SVN S with albuterol Finish Doxycycline Increase Hydroxyzine to 25mg TID Add Valium 5mg po q HS Recheck 1 week or to ER if worsening ICD-9 : 786.1 ICD-10 : R06.1 04/29/2019 Appointment: Belia Reid WPtel: [address] [place], [place] [id number] Hospital Follow Up 04/29/2019 Patient Education: Valium- [employer] C[employer]on [id number] [email or web address] Completed 04/29/2019 Visit Diagnosis Plan: Weight gain Discussion: discusse d that most likely r/t kidney infection but labs ordered including cbc, cmp, tsh, bnp. ICD-9 : 783.1 ICD-10 : R63.5 04/16/2019 Visit Diagnosis Plan: Flank pain Discussion: urine cul ture obtained. rocephin given in office to cover for pyelonephritis and patient's respiratory infection. flexeril refilled to cover for muscular ICD-9 : 789.09 ICD-10 : R10.9 04/16/2019 Appointment: Pattie Sotomayor [address] [place] [address] ACUTE ILLNESS 04/16/2019 Patient Education: cyclobenzaprine- [employer] Coupon [id number] [email or web address] Completed 04/16/2019 Visit Diagnosis Plan: Generalized pruritus Discussion: Hydroxyzine 25mg po TID for itching and anxiety ICD-9 : 698.9 ICD-10 : L29.9 04/08/2019 Visit Diagnosis Plan: Migraine, unspecif ied, not intractable, without status migrainosus Discussion: Increase gabapentin to 600mg po BID ICD-9 : 346.90 ICD-10 : G43.909 04/08/2019 Appointment: Belia Reid WPtel: [address] [place] [address] ACUTE ILLNESS 04/08/2019 Visit Diagnosis Plan: Cervicalgia [...] : M75.52 01/22/2019 Appointment: Belia Reid WPtel: [address] [place] [address] Hospital Follow Up 01/22/2019 Visit Diagnosis Plan: Abdominal pain Discussion: urine culture sent to assess for any infection. rocephin given in office to cover for pyelonephritis. instructed to push fluids. call office with any new or worsening symptoms. ICD-9 : 789.00 ICD-10 : R10.9 01/07/2019 Appointment: Pattie Sotomayor [address] [place] [address] ACUTE ILLNESS 01/07/2019 Visit Diagnosis Plan: Low back pain Discussion: Stat C T of abdomen/pelvis now ICD-9 : 724.2 ICD-10 : M54.5 12/24/2018 Appointment: Belia Reid WPtel: [address] [place] [address] FOLLOW UP 12/24/2018 Visit Diagnosis Plan: Fibromyalgia Discussion: Lab nex t week with Vitamin D leve, B12, CMP, HbA1C ICD-9 : 729.1 ICD-10 : M79.7 11/20/2018 Visit Diagnosis Plan: Migraine, unspecif ied, not intractable, without status migrainosus Discussion: Restart gabapentin at 300mg po BID Restart lorazepam Baclofen 10mg po TID Discussed trying to avoid pain meds as they do not keep the MCCORMICK away and may be causing rebound HAs ICD-9 : 346.90 ICD-10 : G43.909 11/20/2018 Appointment: Belia Reid WPtel: [address] [place] [address] ACUTE ILLNESS 11/20/2018 Patient Education: baclofen- Opt[employer] Coupon [id number] [id number] [email or web address]://[email or web address].[email or web address]/samplemd/resources/getResource/61/[email or web address] Completed 11/20/2018 Visit Diagnosis Plan: Migraine, unspecif ied, intractable, without status migrainosus Discussion: toradol/phenergan given in o ffice (60 mg toradol, 12.5 mg phenergan). instructed to call if no improvement or worsening. instructed to follow up with hide dropper since headaches are occurring more frequently to make sure vision is not the cause. ICD-9 : 346.91 ICD-10 : G43.919 11/04/2018 Visit Diagnosis Plan: Acute sinusitis, unspecified Dis cussion: zithromax prescribed to cover for sinus infection due to length of symptoms and clinincal s/s. ICD-9 : 461.9 ICD-10 : J01.90 11/04/2018 Appointment: [facility] [facility] 11/04/2018 Appointment: Belia Reid WPtel: [address] [place], [place] [phone] [place] CANCELED 09/24/2018 Visit Diagnosis Plan: Type 2 diabetes me llitus with diabetic neuropathy, unspecified Discussion: Retry gabapentin 300mg po q HS ICD-9 : 250.60 ICD-10 : E11.40 09/18/2018 Visit Diagnosis Plan: Vitamin D deficiency, unspecifie d Discussion: Increase Vitamin D3 to 10,000 u daily ICD-9 : 268.9 ICD-10 : E55.9 09/18/2018 Visit Diagnosis Plan: Encounter for [facility] adult medical examination without abnormal findings [...] Appointment: Belia Reid WPtel: [facility] Annual Well Visit 09/18/2018 Patient Education: gabapentin- Opt[employer] Coupon [phone] https://www.[email or web address]/[email or web address]/resources/getResource/61/[email or web address] Completed 09/18/2018 Visit Diagnosis Plan: Pain in [...] : M54.89 09/08/2018 Appointment: Pattie Sotomayor 504 [facility] ACUTE ILLNESS 09/08/2018 Patient Education: prednisone- Opt[employer] Coupon [phone] https://www.[employer]/sampleLOVEFiLM/resources/getResource/61/1j0ao01p-[email or web address]-ja Completed 09/08/2018 Visit Diagnosis Plan: Acute stress reaction Discussion : Trial of lexapro 10mg q HS Follow Up: 1 months ICD-9 : 308.9 ICD-10 : F43.0 08/20/2018 Visit Diagnosis Plan: 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, UNCO NTROLLED Discussion: Lab discussed Accuchecks daily Continue current meds Check CMP and HbA1C now ICD-9 : 250.03 ICD-10 : E10.9 08/20/2018 Visit Diagnosis Plan: Pruritus, unspecified Discussion : Hydroxyzine q HS for sleep/itching/stress ICD-9 : 698.9 ICD-10 : L29.9 08/20/2018 Appointment: Belia Reid WPtel: [facility] ACUTE ILLNESS 08/20/2018 Patient Education: Lexapro- [employer] Coupon [id number] Completed 08/20/2018 Patient Education: hydroxyzine HCl- [employer] Coupon [id number] Completed 08/20/2018 Care Plan: MAMMOGRAM SCREENING [facility] : 2 6347-5 Pending 08/20/2018 Visit Diagnosis Plan: Paroxysmal atrial fibrillation D iscussion: Discuss eliquis need with cardiology at [facility] due to cost ICD-9 : 427.31 ICD-10 : I48.0 06/19/2018 Visit Diagnosis Plan: Hypotension due to drugs Discuss ion: Discussed decreasing cardizem dose due to low BP and edema but sees cardiology next week Follow Up: 1 months ICD-9 : 458.8 ICD-10 : I95.2 06/19/2018 Appointment: Belia Reid WPtel: [phone] [facility] [place] FOLLOW UP 06/19/2018 Visit Diagnosis Plan: Generalized hyperhidrosis Discus estefania: Will check blood cultures x2, urine culture and throat culture due to recent sepsis and ongoing ST as well as CBC, TSH, Free T4 ICD-9 : 780.8 ICD-10 : R61 06/09/2018 Visit Diagnosis Plan: Essential (primary) hypertension Discussion: Just switched to cardizem by cardiology 3 days so will give time and monitor BP/pulse and edema ICD-9 : 401.9 ICD-10 : I10 06/09/2018 Appointment: Belia Reid WPtel: [address] [facility] FOLLOW UP 06/09/2018 Care Plan: CHEST X-RAY 2VW FRONTAL&LATL LOINC : 14537-4 Pending 05/26/2018 Visit Diagnosis Plan: Stridor Discussion: Resolved ICD-9 : 786.1 ICD-10 : R06.1 05/21/2018 Visit Diagnosis Plan: Weakness Discussion: Has home he alth and home PT ICD-9 : 780.79 ICD-10 : R53.1 05/21/2018 Visit Diagnosis Plan: Dependence on supplemental oxyge n Discussion: Continues to need 3L of continuous oxygen Sees pulmonology next week Discussed pulmonary rehab Restart IS Follow Up: 2 weeks ICD-9 : V46.2 ICD-10 : Z99.81 05/21/2018 Visit Diagnosis Plan: Supraventricular tachycardia Dis cussion: Sees Cardiology in 2 weeks ICD-9 : 427.89 ICD-10 : I47.1 05/21/2018 Appointment: Belia Reid WPtel: [phone] [facility] Hospital Follow Up 05/21/2018 Visit Diagnosis Plan: Cervical disc diso rder with radiculopathy, unspecified cervical region Discussion: Scheduled for surgery on 06/02 10/[address] Faulkner ICD-9 : 722.0 ICD-10 : M50.10 04/16/2018 Appointment: Belia Reid WPtel: [address] [place], [place] [phone] Hospital Follow Up 04/16/2018 Visit Diagnosis Plan: Migraine, unspecif ied, intractable, without status migrainosus Discussion: toradol/phenergan given in o ffice as IM as listed above. instructed to call office if no improvement or worsening. ICD-9 : 346.91 ICD-10 : G43.919 04/01/2018 Visit Diagnosis Plan: Fibromyalgia Discussion: toradol to assist with generalized pain. instructed to contact her pharmacy to see where her additional 100 mg gabapentin is. call office if no iprovement or worsening. ICD-9 : 729.1 ICD-10 : M79.7 04/01/2018 Appointment: Pattie Sotomayor [address] [place] [address] ACUTE ILLNESS 04/01/2018 Appointment: Belia Reid WPtel: [address] [place] [address] 03/17/2018 Visit Diagnosis Plan: Erythema intertrigo Discussio: K etoconazole for 2 weeks Discussed recurrence likely due to location as well as blood sugar ICD-9 : 695.89 ICD-10 : L30.4 03/06/2018 Visit Diagnosis Plan: Type 2 diabetes mellitus with hy perglycemia Discussion: Check CMP, HbA1C Accuchecks daily ICD-9 : 250.02 ICD-10 : E11.65 03/06/2018 Visit Diagnosis Plan: Chronic obstructiv e pulmonary disease with (acute) exacerbation Discussion: performomist 1 vial BID in S VN ICD-9 : 491.21 ICD-10 : J44.1 03/06/2018 Appointment: Belia Reid WPtel: [address] [place] [address] Hospital Follow Up 03/06/2018 Visit Diagnosis Plan: Cervicalgia Discussion: spoke wi th dr. reid about patient. increased gabapentin to bid and started on celebrex bid. tramadrol rx written out to take prn. keep scheduled appt next week for myelogram. ICD-9 : 723.1 ICD-10 : M54.2 02/05/2018 Appointment: Pattie Sotomayor [address] [place], [place] [id number] ACUTE ILLNESS 02/05/2018 Care Plan: X-RAY EXAM NECK SPINE 4/5VWS cervical LOINC : 70867-4 Pending 01/21/2018 Visit Diagnosis Plan: Candidiasis of [...] ICD-10 : M54.2 01/20/2018 Appointment: Pattie Sotomayor [address] [place] [address] ACUTE ILLNESS 01/20/2018 Visit Diagnosis Plan: Pain in thoracic spine Discussio n: Proceed with CT scan of thoracic spine Will likely need PT ICD-9 : 724.1 ICD-10 : M54.6 12/25/2017 Appointment: Belia Reid WPtel: [phone] FOLLOW UP 12/25/2017 Care Plan: CT THORAX W/O DYE LOINC : 473 66-0 Pending 12/25/2017 Visit Diagnosis Plan: Pain in thoracic spine Discussio n: Stretches Alternated heat/ice Topical aspercreme with lidocaine Flexeril Recheck 1 week Flu and Pneumovax given ICD-9 : 724.1 ICD-10 : M54.6 12/17/2017 Appointment: Belia Reid WPtel: [phone] [facility] ACUTE ILLNESS 12/17/2017 Patient Education: Patient [...] ICD-10 : J44.1 10/30/2017 Appointment: Belia Reidtel: [address] [place], [place] [phone] [place] FOLLOW UP 10/30/2017 Patient Education: Patient Medication Summary Completed 10/30/2017 Visit Diagnosis Plan: Chronic obstructiv e pulmonary disease with acute lower respiratory infection Discussion: Continue SVNs with albuterol q4hrs Add Trelagy 1 inhalation daily Finish steroids Increase water intake Follow Up: 1 weeks ICD-9 : 496 ICD-10 : J44.0 10/23/2017 Appointment: Belia Reidtel: [address] [place], [place] [address] WORK IN 10/23/2017 Patient Education: Patient Medication Summary Completed 10/23/2017 Appointment: Belia Reidtel: [address] [place], [place] [address] NO SHOW 10/16/2017 Visit Diagnosis Plan: [...] ICD-10 : E11.65 09/17/2017 Appointment: Belia Reidtel: [address] [place], [place] [phone] Annual Well Visit 09/17/2017 Patient Education: Patient Medication Summary Completed 09/17/2017 Appointment: Belia Reidtel: [address] [place], [place] [phone] [place] INJECTION 08/26/2017 Patient Education: Patient Medication Summary Completed 08/26/2017 Appointment: Belia Reidtel: [phone] [facility] [facility] CANCELED 07/31/2017 Visit Diagnosis Plan: Encounter [...] : J20.9 07/19/2017 Appointment: Pattie Sotomayor [address] [facility] AC[facility] I[facility] 07/19/2017 Patient Education: Patient Medication Summary Completed 07/19/2017 Care Plan: MAMMOGRAM SCREENING LOINC : 2 6347-5 Pending 07/19/2017 Patient Education: Patient Medication Summary Completed 06/05/2017 Care Plan: LIPID PANEL LOINC : 93993-7 Pending 06/05/2017 Care Plan: A1C HPLC LOINC : 99890-2 Pending 06/05/2017 Visit Diagnosis Plan: Rash and [...] : R21 05/29/2017 Appointment: Pattie Sotomayor [address] [id number] FOLLOW UP 05/29/2017 Patient Education: Patient Medication Summary Completed 05/29/2017 Visit Diagnosis Plan: Diarrhea, unspecified Discussion : Diflucan Cholestyramine Recheck 2weeks ICD-9 : 787.91 ICD-10 : R19.7 05/07/2017 Visit Diagnosis Plan: Tinea corporis Discussion: Diflu can and topical nystatin Follow Up: 2 weeks ICD-9 : 110.5 ICD-10 : B35.4 05/07/2017 Appointment: Belia Reid WPtel: [address] [place] [address] US FOLLOW UP 05/07/2017 Patient Education: Patient Medication Summary Completed 05/07/2017 Appointment: Belia Reidtel: [address] [place] [address] US RESCHEDULED 04/30/2017 Visit Diagnosis Plan: Stridor Discussion: Increase Ati van 0.5mg po to TID routinely for next week then can go back to prn ICD-9 : 786.1 ICD-10 : R06.1 03/18/2017 Visit Diagnosis Plan: Chronic obstructiv e pulmonary disease with (acute) exacerbation Discussion: Finish prednisone Continue S VNS with albuterol ICD-9 : 491.21 ICD-10 : J44.1 03/18/2017 Appointment: Belia Reid WPtel: [address] [place], [place] [address] ER Follow UP 03/18/2017 Patient Education: Patient [...] : E11.65 02/27/2017 Appointment: Belia Reid WPtel: [address] [place], [place] [phone] [place] FOLLOW UP 02/27/2017 Patient Education: Patient [...] ICD-10 : E11.65 02/22/2017 Appointment: Pattie Sotomayor [address] [place], [place] [phone] ACUTE ILLNESS 02/22/2017 Patient Education: Patient Medication Summary Completed 02/22/2017 Patient Education: Trulicity - 18+ Comple mague 02/22/2017 Visit Diagnosis Plan: Urinary tract infection, site no t specified Discussion: Sejal guptaaqandrzej ICD-9 : 599.0 ICD-10 : N39.0 01/23/2017 [...] J18.9 01/23/2017 Appointment: Belia Reid WPtel: [phone] [facility] ER Follow UP 01/23/2017 Patient Education: Patient Medication Summary Completed 01/23/2017 Appointment: Pattie Sotomayor [address] [place], [place] [address]a [facility] US CANCELED 01/17/2017 Appointment: Pattie Sotomayor [address] [place], [place] [phone] Annual Well Visit 01/14/2017 Visit Diagnosis Plan: Localized edema Discussion: Low Na diet Compression socks/Elevate feet ICD-9 : 782.3 ICD-10 : R60.0 12/20/2016 Visit Diagnosis Plan: Type 2 diabetes mellitus with hy perglycemia Discussion: Check CMP, HbA1C Flu shot and Prevnar 13 given Follow Up: 3 months ICD-9 : 250.02 ICD-10 : E11.65 12/20/2016 Appointment: Belia Reid WPtel: [facility] FOLLOW UP 12/20/2016 Patient Education: Patient Medication Summary Completed 12/20/2016 Patient Education: Patient Medication Summary Completed 10/10/2016 Visit Plan: Xrays of cervical, thoracic and lumbar spine at [facility] for Mobic (stop NSAIDS except Tylenol) and Flexeril UA sent for C&S Using SVN Call in 2-3 days if pain not improved or any worsening 10/08/2016 Appointment: Celeste Ferreira WPtel: [address] [place] [address] ACUTE ILLNESS 10/08/2016 Patient Education: Patient Medication [...] Appointment: Belia Reid WPtel: [facility] 09/18 confirmed`sl FOLLOW UP 09/19/2016 Patient Education: [...] : R10.84 08/20/2016 Appointment: Belia Reid WPtel: [address] [place], [place] [address] 08/16 confirmed~sl FOLLOW UP 08/20/2016 Patient Education: [...] : J44.9 06/19/2016 Appointment: Belia Reid WPtel: [address] [place], [place] [phone] [place] 06/18 confirmed ~ Hospital Follow Up [...] Appointment: Belia Reid WPtel: [facility] US 06/01 confirmed~sl FOLLOW UP 06/04/2016 [...] : R06.1 05/02/2016 Appointment: Belia Reid WPtel: [address] [place], [place] [phone] 05/01 confirmed [facility] Hospital Follow Up 05/02/2016 Patient Education: [...] : N39.0 04/03/2016 Appointment: Belia Reid WPtel: [address] [place], [place] [phone] [facility] 04/03/2016 Patient Education: Patient Medication Summary Completed 04/03/2016 Visit Plan: Lungs are clear Her symptoms and exam are all upper airway restriction/constriction Can try supportive care Rx as above Follow up PRN 02/29/2016 Appointment: Lidia Hwang [address] [place], [place] [address] ACUTE ILLNESS 02/29/2016 Patient Education: Patient Medication Summary Completed 02/29/2016 Visit Plan: Toradol/Phenergan today for Migraine Change to Clindamycin to cover lactobacillus for UTI Cover with flagyl due to hx of C. Diff 02/02/2016 Appointment: Belia Reid WPtel: [address] [place], [place] [phone] 01/31 confirmed`sl ACUTE ILLNESS 02/02/2016 Patient Education: Patient Medication Summary Completed 02/02/2016 Visit Plan: Increase neurontin to 300mg q AM and 600mg q PM Discussed neurology re-evaluation Flu shot given Need to check on Pneumonia shot Rx written out for albuterol 01/05/2016 Appointment: Belia Reid WPtel: [address] [place], [place] [phone] 01/03 confirmed ~sl Annual Well Visit 01/05/2016 Patient Education: Patient Medication Summary Completed 01/05/2016 Visit Plan: Cipro Culture urine hydrate Flexeril refilled Alternate heat and ice for back Increase gabapentin to 300mg po BID Notify if worsens 12/05/2015 Appointment: Belia Reid WPtel: [address] [place], [place] [phone] 11/30 confirmed~sl ACUTE ILLNESS 12/05/2015 Patient Education: Patient Medication Summary Completed 12/05/2015 Patient Education: Patient Medication Summary Completed 10/27/2015 Care Plan: COMPREH[place] : 17435-1 Pending 10/27/2015 Care Plan: A1C HPLC LOINC : 33623-7 Pending 10/27/2015 Visit Plan: Lungs are CTA today and is f eeling improved overall Finish meds as ordered Continue inhalers and neb treatments Discussed migraine treatment options She does not feel she needs anything additional added today Refill of Januvia sent since no samples are available today 10/26/2015 Appointment: Lidia Hwang [address] [place], [place] [address] Hospital Follow Up 10/26/2015 Appointment: Lidia Hwang [address] [place], [place] [address] CANCELED 10/26/2015 Patient Education: Patient Medication Summary Completed 10/26/2015 Patient Education: Januvia - 18+ - KENNETH - No [place] Completed 10/26/2015 Visit Plan: Office dip still abnormal Cu lture pending Switch to cipro - stop macrobid Push fluids - avoid caffeine Will call with culture results when available Follow up if worsening 10/05/2015 Appointment: Lidia Hwang [address] [place], [place] [address] ER Follow UP 10/05/2015 Patient Education: Patient Medication Summary Completed 10/05/2015 Visit Plan: Proceed with PT for document ation of ROM and strength of all extremities Proceed with Power Mobility Device Trial of neurontin 300mg q HS--lyrica helped but patient unable to afford Recheck 1month 09/15/2015 Appointment: Belia Reid WPtel: [address] [place], [place] [phone] 09/13 confirmed~sl SPECIAL 09/15/2015 Patient Education: Patient Medication Summary Completed 09/15/2015 Visit Plan: Fille out Loan Discharge Pap erwork for total and permanent disability 08/25/2015 Patient Education: Patient Medication Summary Completed 08/25/2015 Visit Plan: Discussed with Dr Franklin Haywood at [facility] of head Will get 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 date of 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 and update if needed 08/24/2015 Appointment: Lidia Hwang [address] [place], [place] [phone] 08/22 confirmed~sl ACUTE ILLNESS 08/24/2015 Patient Education: Patient Medication Summary Completed 08/24/2015 Patient Education: Patient Medication Summary Completed 08/24/2015 Care Plan: US EXAM OF HEAD AND NECK carotid Ultrasound LOIN C : 60331-3 Pending 08/24/2015 Visit Plan: Long discussion about diet A ccuchecks daily Check HbA1C, CMP Change requip to mirapex 07/05/2015 Appointment: Belia Reid WPtel: [address] [place] [address] 07/03 confirmed ~sl FOLLOW UP 07/05/2015 Patient Education: Patient Medication Summary Completed 07/05/2015 Visit Plan: Add Breo ellipta 100 1 p BID Continue SVNs with duoneb QID 06/06/2015 Appointment: Belia Reid WPtel: [address] [place], [place] [phone] Patient is calling for a ride, then retu rning our call.-sp 06/01 called and patient stated she will know saturday if she can get a ride~sl 06/05 [facility] Hospital Follow Up 06/06/2015 Patient Education: [...] not improving 05/23/2015 Appointment: Huong Osborne WPtel: [address] [place], [place] [phone] ACUTE ILLNESS 05/23/2015 Appointment: Lidia Hwang [address] [place], [place] [address] ER Follow UP 05/23/2015 Patient Education: Patient Medication Summary Completed 05/23/2015 Visit Plan: Check pancreatic enzymes and US of pancreas as patient can't understand why she has diabetes since has no family history Discussed weight, diet, exercise all play an important role in diabetes and are risk factors as well Continue Januvia and accuchecks daily 05/05/2015 Appointment: Belia Reid WPtel: [address] [place], [place] [phone] FOLLOW UP 05/05/2015 Patient Education: Patient Medication Summary Completed 05/05/2015 Care Plan: US EXAM ABDOM COMPLETE LOINC : 48212-4 Ordered 05/05/2015 Visit Plan: Start Januvia 100mg daily [place] with diflucan and culture urine Accuchecks daily alternating times Recheck 6weeks 03/30/2015 Appointment: Belia Reidtel: [address] [place], [place] [phone] 03/29 confirmed~lb FOLLOW UP 03/30/2015 Patient Education: Patient Medication Summary Completed 03/30/2015 Appointment: Belia Reid WPtel: [address] [place], [place] [phone] [place] 03/01 needs reschedule due to payment and insurance ~sl FOLLOW UP 03/02/2015 Visit Plan: Patient was just in ER last night so has not filled scripts yet Start Carafate and Flagyl and Cipro Add Hyophen 1 po BID Recheck 1mo 02/03/2015 Appointment: Belia Reid: [address] [place], [place] [address] 02/02lm ~sl...02/03/15 appt confirmed cn ACUTE I LLNESS 02/03/2015 Patient Education: Patient Medication Summary Completed 02/03/2015 Visit Plan: Warm soaks to vaginal area K elex and Diflucan and observe Zofran to use prn 12/29/2014 Appointment: Belia Reid WPtel: [address] [place], [place] [phone] 12/28 Confirmed ~sl ACUTE ILLNESS 12/29/2014 Patient Education: Patient Medication Summary Completed 12/29/2014 Appointment: Huong Osborne WPtel: [address] [place], [place] [phone] FOLLOW UP 09/24/2014 Appointment: Belia Reid WPtel: [address] [place], [place] [phone] 09/15 confirmed -mf FOLLOW UP 09/16/2014 Visit Plan: Increase requip to 2mg po BI D Increase lyrica to 225mg total a day by adding an extra 75mg in AM Recheck in 2weeks Continue to patch left eye while sleeping 09/02/2014 Appointment: Belia Reid WPtel: [address] [place], [place] [phone] 09/01 appt confirmed cn Hospital Follow Up 09/02 Patient Education: Patient Medication Summary Completed 09/02/2014 Visit Plan: To Via Ayanna for observat ion to R/O CVA 08/25/2014 Appointment: Huong Osborne WPtel: [address] [place], [place] [address] ACUTE ILLNESS 08/25/2014 Patient Education: Patient Medication Summary Completed 08/25/2014 Referral: Aaron Jonas WPtel: [facility] [address], [address] In [place] location Initiated 04/26/2014 Referral: Brian Srinivasan WPtel: [place] [facility] [place] [address] Referral Initiated 04/20/2014 Appointment: Belia Reid WPtel: [address] [place], [place] [phone] ER Follow UP 04/01/2014 Patient Education: Patient Medication Summary Completed 04/01/2014 Care Plan: MYELOGRAPHY NECK SPINE LOINC : 97053-5 Ordered 04/01/2014 Visit Plan: Continue Symbicort 160 at 2p BID Continue SVNs with duoneb at least QID Finish Levaquin Recheck 1mo on lyrica 03/16/2014 Appointment: Belia Reid WPtel: [address] [place] [address] 03/15 voicemail FOLLOW UP 03/16/2014 Patient Education: Patient Medication Summary Completed 03/16/2014 Visit Plan: Restart SVNs with duoneb QID Repeat prednisone Levaquin Continue symbicort Keep lyrica at same dose Recheck 1week 03/09/2014 Appointment: Belia Reid WPtel: [address] [place] [address] FOLLOW UP 03/09/2014 Patient Education: Patient Medication Summary Completed 03/09/2014 Appointment: Belia Reid WPtel: [address] [place] [address] 03/03 showed up 15 minutes late for appt -- put her on Huong's side for 10:45am FORGIVEN PER DR FOLLOW UP 03/03/2014 Appointment: Huong Osborne WPtel: [address] [place] [address] [place] FOLLOW UP 03/03/2014 Patient Education: Patient Medication Summary Completed 03/03/2014 Appointment: Huong Osborne WPtel: [address] [place], [place] [address] ER Follow UP 03/01/2014 Patient Education: Patient Medication Summary Completed 03/01/2014 Visit Plan: Add carafate for this next m onth Increase lyrica to 150mg q HS 02/09/2014 Appointment: Belia Reid WPtel: [address] [place], [place] [phone] [facility] Follow Up 02/09/2014 Patient Education: Patient Medication Summary Completed 02/09/2014 Visit Plan: Increase omeprazole back to 40mg po BID Use requip in AM and add lyrica 75mg q HS Recheck 1mo 12/23/2013 Appointment: Belia Reid WPtel: [address] [place], [place] [phone] FOLLOW UP 12/23/2013 Patient Education: Patient Medication Summary Completed 12/23/2013 Patient Education: Patient Medication Summary Completed 12/04/2013 Appointment: Belia Reid WPtel: [address] [place] [address] 10/30/2013 Patient Education: Patient Medication Summary Completed 10/30/2013 Appointment: Belia Reid WPtel: [address] [place] [address] 10/21/2013 Patient Education: Patient Medication Summary Completed 10/21/2013 Visit Plan: Cryotherapy as above TAC and hydroxyzine to use prn to itching spots and itching SKs Add Advair HFA 115/21 1 p BID 10/05/2013 Appointment: Belia Reid WPtel: [address] [place], [place] [phone] 10/01 pt called and confirmed ACUTE ILLNESS Patient Education: Patient Medication Summary Completed 10/05/2013 Appointment: Belia Reid WPtel: [address] [place], [place] [id number] will pay copay and part of past balance FOLLOW U P 08/04/2013 Patient Education: Patient Medication Summary Completed 08/04/2013 Appointment: Belia Reid WPtel: [address] [place], [place] [phone] [place] INJECTION 07/13/2013 Patient Education: Patient Medication Summary Completed 07/13/2013 Appointment: Huong Osborne WPtel: [address] [place], [place] [phone] [place] ACUTE ILLNESS 07/03/2013 Patient Education: Patient Medication Summary Completed 07/03/2013 Visit Plan: Cipro and culture urine 05/27/2013 Appointment: Huong Osborne WPtel: [address] [place], [place] [phone] [place] 05/26 confirmed appt and notified that 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 at appt time FOLLOW UP 05/27/2013 Patient Education: Patient Medication Summary Completed 05/27/2013 Appointment: Belia Reid WPtel: [address] [place], [place] [phone] [place] UA 05/25/2013 Patient Education: Patient Medication Summary Completed 05/25/2013 Appointment: Belia Reid WPtel: [address] [place], [place] [phone] [place] INJECTION 05/04/2013 Patient Education: Patient Medication Summary Completed 05/04/2013 Appointment: Belia Reid WPtel: [address] [place], [place] [phone] [place] INJECTION 04/17/2013 Patient Education: Patient Medication Summary Completed 04/17/2013 Appointment: Belia Reid WPtel: [address] [place], [place] [phone] [place] INJECTION 04/15/2013 Appointment: Belia Reid WPtel: [address] [place], [place] [phone] [place] 04/02 FOLLOW UP 04/06/2013 Patient Education: Patient Medication Summary Completed 04/06/2013 Visit Plan: Obtain lab results including UA from [facility] 11/10/2012 Appointment: Belia Reid WPtel: [address] [place] [address] ER Follow UP 11/10/2012 Patient Education: Patient Medication Summary Completed 11/10/2012 Appointment: Belia Reid WPtel: [address] [place], [place] [phone] 10/30/12 patient canceled appt due to fin ances. Offered to work something out, patient declined-LB FOLLOW UP 11/05/2012 Visit Plan: Continue Bystolic at current dose Pt has fwup with Neurology on September 16 09/02/2012 Appointment: Belia Reid WPtel: [address] [place] [address] FOLLOW UP 09/02/2012 Patient Education: Patient Medication Summary Completed 09/02/2012 Visit Plan: Continue bystolic at 5mg chris ly Sees Neurology tomorrow Use oxygen at bedtime 08/04/2012 Appointment: Belia Reid WPtel: [address] [place] [address] FOLLOW UP 08/04/2012 Patient Education: Patient Medication Summary Completed 08/04/2012 Appointment: Belia Reid WPtel: [address] [place] [address] Hospital fwup for 07/21/12. merged appointments FOLLOW UP 07/24/2012 Visit Plan: Start Bystolic 5mg daily for tachycardia Fwup with neurology for further workup Overnight O2 sat 07/21/2012 Appointment: Belia Reid WPtel: [address] [place] [address] Hospital Follow Up 07/21/2012 Patient Education: Patient Medication Summary Completed 07/21/2012 Visit Plan: SVN with Albuterol QID Add A velox 400mg daily Notify if worsens or persists 07/02/2012 Appointment: Belia Reid WPtel: [address] [place] [address] ACUTE ILLNESS 07/02/2012 Patient Education: Patient Medication Summary Completed 07/02/2012 Appointment: Belia Reid WPtel: [address] [place], [place] [phone] [place] INJECTION 06/25/2012 Patient Education: Patient Medication Summary Completed 06/25/2012 Appointment: Belia Reid WPtel: [address] [place], [place] [phone] FOLLOW UP 06/24/2012 Patient Education: Patient Medication Summary Completed 06/24/2012 Appointment: Belia Reid WPtel: [address] [place], [place] [phone] 05/19 left message FOLLOW UP 05/20/2012 Patient [...] po TID 05/08/2012 Appointment: Belia Reid WPtel: [address] [place], [place] [phone] ACUTE ILLNESS 05/08/2012 Patient Education: Patient Medication Summary Completed 05/08/2012 Visit Plan: Continue current meds Contin ue lower dose on pain meds and Diazepam Still waiting on paperwork for botox for Migraines Will restart Neurontin at 600mg po q HS Pt going to stop Depakote due to can't afford 04/22/2012 Appointment: Belia Reid WPtel: [address] [place], [place] [phone] 04/21 Hospital Follow Up 04/22/2012 Patient Education: Patient Medication Summary Completed 04/22/2012 Visit Plan: Injection to shoulder as abo ve Continue current meds Has appointment with neurology on HAs in 02/13/2012 Appointment: Belia Reid WPtel: [address] [place], [place] [phone] [facility] - will bring it in next week. Kianna iqbal'ed this. - [place] FOLLOW UP 02/13/2012 Patient Education: Patient Medication Summary Completed 02/13/2012 Visit Plan: Proceed with headache specia list Change nexium to Protonix Phenergan to use prn Sumatriptan to use prn Pt still on Inderal 01/28/2012 Appointment: Belia Reid WPtel: [address] [place] [address] ER Follow UP 01/28/2012 Patient Education: Patient [...] for sleep 12/26/2011 Appointment: Belia Reid WPtel: [address] [place], [place] [phone] 12/24- appt. confirmed FOLLOW UP 2 Patient Education: Patient Medication Summary Completed 12/26/2011 Appointment: Belia Reid WPtel: [address] [place], [place] [phone] [place] FOLLOW UP 11/14/2011 Patient Education: Patient Medication Summary Completed 11/14/2011 Appointment: Belia Reid WPtel: [address] [place], [place] [phone] [place] FOLLOW UP 09/12/2011 Patient Education: Patient Medication Summary Completed 09/12/2011 Visit Plan: Supportive care Decrease Liseth catalino to 50mg q HS Decrease AM dose of Valium to 5mg q HS Use Endocet sparingly 08/15/2011 Appointment: Belia Reid WPtel: [address] [place], [place] [phone] ER Follow UP 08/15/2011 Patient Education: Patient Medication Summary Completed 08/15/2011 Appointment: Belia Reid WPtel: [address] [place] [address] [place] Spoke directly to patient yesterday and confirmed the appoin tmedavid. ACUTE ILLNESS 08/09/2011 Patient Education: Patient Medication Summary Completed 08/09/2011 Appointment: Belia Reid WPtel: [address] [place] [address] Hospital Follow Up 07/03/2011 Patient Education: Patient Medication Summary Completed 07/03/2011 Appointment: Belia Reid WPtel: [address] [place] [address] FOLLOW UP 06/04/2011 Patient Education: Patient Medication Summary Completed 06/04/2011 Visit Plan: Pt. wants "allergy shot" but in fact wants steroid shot. Will take a break from "generic Zyrtec they are getting from [facility]" and try Singulair for 2 weeks. 05/03/2011 Appointment: Iraida Jones WPtel: [address] [place] [address] ACUTE ILLNESS 05/03/2011 Patient Education: Patient Medication Summary Completed 05/03/2011 Visit Plan: Neurontin 400mg q HS for 1we ek then 800mg q HS Decrease requip to 1mg q HS for 2wks then stop Fwup 2mos 04/05/2011 Appointment: Belia Reid WPtel: [address] [place] [address] FOLLOW UP 04/05/2011 Patient Education: Patient Medication Summary Completed 04/05/2011 Visit Plan: Trial of neurontin in 2wks C ontinue current meds for stomach Pt has procedure with Dr. Ortiz next week for stone removal 03/08/2011 Appointment: Belia Reid WPtel: [address] [place] [address] Hospital Follow Up 03/08/2011 Patient Education: Patient Medication Summary Completed 03/08/2011 Appointment: Belia Reid WPtel: [address] [place], [place] [phone] [place] FOLLOW UP 02/19/2011 Visit Plan: reports [...] with Flagyl 01/24/2011 Appointment: Iraida Jones WPtel: [address] [place] [address] ACUTE ILLNESS 01/24/2011 Patient Education: Patient Medication Summary Completed 01/24/2011 Appointment: Belia Reid WPtel: [address] [place] [address] [place] FOLLOW UP 01/02/2011 Patient Education: Patient Medication Summary Completed 01/02/2011 Appointment: Belia Reid WPtel: [address] [place] [address] FOLLOW UP 12/12/2010 Appointment: Belia Reid WPtel: [address] [place] [address] ACUTE ILLNESS 12/07/2010 Patient Education: Patient Medication Summary Completed 12/07/2010 Visit Plan: Increase Buspar to 10mg po B ID 11/16/2010 Appointment: Belia Reid WPtel: [address] [place], [place] [phone] [place] FOLLOW UP 11/16/2010 Patient Education: Patient Medication Summary Completed 11/16/2010 Appointment: Iraida Jones WPtel: [address] [place], [place] [phone] ER Follow UP 11/02/2010 Patient Education: Patient Medication Summary Completed 11/02/2010 Visit Plan: Depo-Medrol/Kenalog given fo r allergies Add BuSpar for anxiety Oxycodone one p.o. q.i.d. for number 120 refilled 10/18/2010 Appointment: Belia Reid WPtel: [address] [place] [address] FOLLOW UP 10/18/2010 Patient Education: Patient Medication Summary Completed 10/18/2010 Visit Plan: Continue current meds Discus sed epidurals for back vs PT--will proceed with epidurals to thoracolumbar region to see if helps with pain 09/19/2010 Appointment: Belia Reid WPtel: [address] [place] [address] FOLLOW UP 09/19/2010 Patient Education: Patient Medication Summary Completed 09/19/2010 Visit Plan: DC MS contin Check CT scan t horacic spine Fwup pending above results 09/06/2010 Appointment: Belia Reid WPtel: [address] [place] [address] FOLLOW UP 09/06/2010 Patient Education: Patient Medication Summary Completed 09/06/2010 Visit Plan: Continue current meds Restar t MS contin 15mg po BID and use oxycodone prn Use daily senokot-s 2 po BID 08/10/2010 Appointment: Belia Reidtel: [address] [place], [place] [phone] FOLLOW UP 08/10/2010 Patient Education: Patient Medication Summary Completed 08/10/2010 Visit Plan: Depomedrol/Kenalog given Pt sees ENT later this month Cont current meds Mammo scheduled 05/11/2010 Appointment: Belia Reid WPtel: [address] [place], [place] [phone] FOLLOW UP 05/11/2010 Patient Education: Patient Medication Summary Completed 05/11/2010 Appointment: Belia Reid WPtel: [address] [place], [place] [phone] UA 05/04/2010 Patient Education: Patient Medication Summary Completed 05/04/2010 Visit Plan: Pt sent to lab for UA 04/28/2010 Appointment: Belia Reidtel: [address] [place], [place] [phone] [place] [address] 04/28/2010 Patient Education: Patient Medication Summary Completed 04/28/2010 Visit Plan: Check CT angiogram of chest Restart Advair Use proair prn Cont current meds Fwup with Card as schedulec 04/06/2010 Appointment: Belia Reidtel: [address] [place] [address] Follow Up 04/06/2010 Patient Education: Patient Medication Summary Completed 04/06/2010 Visit Plan: Paperwork filled out for pow erchair Depomedrol/kenalog given Pt sees ENT in 2wks to assess nasal obstruction problems 02/09/2010 Appointment: Belia Reidtel: [address] [place] [address] ESTABLISHED PATIENT 02/09/2010 Patient Education: Patient Medication Summary Completed 02/09/2010 Visit Plan: Change Elavil to Trazadone 1 50mg q HS Diflucan and nystatin for tinea cruris 01/05/2010 Appointment: Belia Reidtel: [address] [place] [address] FOLLOW UP 01/05/2010 Patient Education: Patient Medication Summary Completed 01/05/2010 Appointment: Belia Reidtel: [address] [place] [address] FOLLOW UP 12/07/2009 Patient Education: Patient Medication Summary Completed 12/07/2009 Appointment: Belia Reidtel: [address] [place] [address] FOLLOW UP 11/22/2009 Visit Plan: Cont current meds and await MRI results from Dr. Meadows's office and his final recommendations Will need to follow-up at later date on deviated septum 11/08/2009 Appointment: Belia Reid WPtel: [address] [place], [place] [phone] FOLLOW UP 11/08/2009 Patient Education: Patient Medication Summary Completed 11/08/2009 Visit Plan: Cont PT/OT See Neurosurgery Cont Dwain alejandrace 10/24/2009 Appointment: Belia Reid WPtel: [address] [place], [place] [phone] FOLLOW UP 10/24/2009 Patient Education: Patient Medication Summary Completed 10/24/2009 Appointment: Belia Reid WPtel: [address] [place], [place] [phone] [place] [address] Follow Up 10/17/2009 Appointment: Belia Reid WPtel: [address] [place] [address] ACUTE ILLNESS 07/25/2009 Patient Education: Patient Medication Summary Completed 07/25/2009 Appointment: Belia Reid WPtel: [address] [place], [place] [phone] FOLLOW UP 05/26/2009 Patient Education: Patient Medication Summary Completed 05/26/2009 Referral: Chino Balderas WPtel: [address] [place], [place] [phone] [place] Referral Initiated Referral: Merry Vale WPtel: [facility] [id number] Vale will review referral and book appointment Completed Referral: Francisco Javier Yoder WPtel: [address] [id number] [place] Patient needs EGD insurance will not inc rease a medication unless this procedure results show a need Completed Referral: Francisco Javier Yoder WPtel: [address] [id number] [place] Referral Historical Reference Referral: Francisco Javier Yoder WPtel: [address] [place] [address] [place] Referral Initiated Instructions Comment . 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 Long discussion [...] from "generic Zyrtec they are getting from [facility]" and try Singulair for 2 weeks. . [...]
--- OUTSIDE RECORDS SUMMARY | 2019-06-23 17:46 | XMS REPORT | CCD ---
Author Author Diana Reid D.O. Organization [facility] Address [address] [place] [address] Phone Care Team Providers Care Manager Of Regulatory Affairs Name Role Phone Belia Reid D.O., PP Unavailable CCM Unavailable Summary Purpose Interface Exchange Insurance Providers Payer name Policy type / Coverage type Covered libertarian ID Effective Begin Date Effective End Date [employer] MEDICARE Medicare Part B [id number] 2019 Unknown Family History Family History data not found Social History Social History Element Codes Description Effective Dates Tobacco history SNOMED CT: 651129394 Nonsmoker 09/13/2010 Allergies, Adverse Reactions, Alerts Substance Reaction Codes Entered Date Inactivated Date Status Eggs reaction [id number] 09/15/2015 No Inactive Date Active _ Unknown 01/07/2019 No Inactive Date Active PENICILLINS Unknown 01/07/2019 No Inactive Date Active SULFA (SULFONAMIDES) rash Unknown 11/02/2010 No Inactive Mike e Active Problems Condition Codes Effective Dates Condition Status Abdominal bloating ICD-9: 787.3 ICD-10: R14.0 06/08/2019 Active Diarrhea ICD-9: 787.91 ICD-10: R19.7 06/24/2012 Active Acute febrile illness ICD-9: 780.60 ICD-10: R50.9 05/26/2019 Active Colitis ICD-9: 558.9 ICD-10: K52.9 05/26/2019 Active Chronic obstructive pulmonary disease, unspecified [...] findings ICD-9: V20.2 ICD-10: Z00.129 09/17/2017 Active Acute bronchitis, unspecified ICD-9: 466.0 ICD-10: J20.9 07/19/2017 Active Encounter for screening for osteoporosis ICD-9: [...] Start Date Stop Date Status Fill Instructions Vancocin 125 mg capsule RxNorm: 544775 1 Capsule(s) Oral four t imes a day 06/08/2019 06/18/2019 Active diltiazem CD 240 mg capsule,extended release 24 hr RxNorm: 8 66333 1 Capsule(s) Oral QD 05/26/2019 11/21/2019 Active omeprazole 40 mg capsule,delayed release RxNorm: 551043 1 Capsule(s) Oral two times a day 05/26/2019 11/21/2019 Active Flagyl 500 mg tablet RxNorm: 612433 1 Tablet(s) Oral three time s a day 05/26/2019 06/05/2019 Inactive Cipro 250 mg tablet RxNorm: 775180 1 Tablet(s) Oral two times a day 05/26/2019 06/02/2019 Inactive hydroxyzine HCl 25 mg tablet RxNorm: 961799 1 Tablet(s) Oral QPM for itching/aniety 05/21/2019 06/27/2019 Active metoprolol tartrate 25 mg tablet RxNorm: 579164 1 Table t(s) Oral two times a day 05/21/2019 08/19/2019 Active hydroxyzine HCl 25 mg tablet RxNorm: 372855 1 Tablet(s) Oral QPM for itching/aniety 05/13/2019 05/20/2019 Inactive Singulair 10 mg tablet RxNorm: 258933 1 Tablet(s) Oral QPM 05/06/19 20 05/12/2019 Inactive gabapentin 600 mg tablet RxNorm: 175954 1 Tablet(s) Oral QD 020 06/05/2019 Inactive Valium 5 mg tablet RxNorm: 316017 1 Tablet(s) Oral QPM for stri joao/muscle spasm 04/29/2019 05/29/2019 Inactive baclofen 10 mg tablet RxNorm: 193501 1 Tablet(s) Oral QPM for s pasm/neck pain 04/24/2019 05/23/2019 Inactive baclofen 10 mg tablet RxNorm: 089393 1 Tablet(s) Oral QPM for s pasm/neck pain 04/24/2019 04/23/2019 Inactive Novolin N NPH U-100 Insulin isophane 100 unit/mL subcu taneous susp RxNorm: 828686 23 Unit(s) Subcutaneous two times a day 04/20/2019 No Stop Date A ctive cyclobenzaprine 5 mg tablet RxNorm: 576203 1 Tablet(s) Oral three times a day as needed 04/16/2019 04/23/2019 Inactive hydroxyzine HCl 25 mg tablet RxNorm: 743756 1 Tablet(s) Oral three times a day for itching/aniety 04/08/2019 05/12/2019 Inactive gabapentin 600 mg tablet RxNorm: 265166 1 Tablet(s) Oral two ti mes a day 04/08/2019 05/05/2019 Inactive gabapentin 600 mg tablet RxNorm: 995423 1 Tablet(s) Oral two ti mes a day 04/08/2019 04/07/2019 Inactive Novolin N NPH U-100 Insulin isophane 100 unit/mL subcu taneous susp RxNorm: 104385 10 Unit(s) Subcutaneous two times a day 03/03/2019 04/19/2019 I nactive gabapentin 300 mg capsule RxNorm: 603348 1 Capsule(s) O ral every night at bedtime for neuropathy 02/26/2019 04/07/2019 Inactive gabapentin 300 mg capsule RxNorm: 812198 1 Capsule(s) O ral every night at bedtime for neuropathy 02/20/2019 02/25/2019 Inactive pramipexole 1 mg tablet RxNorm: 899088 1 Tablet(s) Oral QPM FOR RESTLESS LEGS (REPLACES REQUIP) 02/12/2019 02/07/2020 Active buspirone 5 mg tablet RxNorm: 709414 TAKE 1 TABLET THREE TIMES MILDRED Y 02/12/2019 05/12/2019 Inactive Lexapro 10 mg tablet RxNorm: 696530 TAKE 1 TABLET EVERY DAY FOR MOO D 01/31/2019 No Stop Date Active Ativan 0.5 mg tablet RxNorm: 724849 TAKE 1 TABLET BY MO UTH THREE TIMES DAILY NEEDED FOR ANXIETY 01/26/2019 04/28/2019 Inactive Ativan 0.5 mg tablet RxNorm: 267203 TAKE 1 TABLET BY MO UTH THREE TIMES DAILY NEEDED FOR ANXIETY 01/05/2019 01/05/2019 Inactive Levaquin 500 mg tablet RxNorm: 505317 1 Tablet(s) Oral QD 12/25/2018 12/24/2018 Inactive Levaquin 500 mg tablet RxNorm: 132573 1 Tablet(s) Oral QD 12/25/2018 01/04/2019 Inactive baclofen 10 mg tablet RxNorm: 291408 1 Tablet(s) Oral three maico es a day 11/20/2018 01/19/2019 Inactive Ativan 0.5 mg tablet RxNorm: 950930 TAKE 1 TABLET BY MO UTH THREE TIMES DAILY NEEDED FOR ANXIETY 11/20/2018 01/04/2019 Inactive gabapentin 300 mg capsule RxNorm: 369474 1 Capsule(s) O ral every night at bedtime for neuropathy 11/20/2018 12/20/2018 Inactive Lexapro 10 mg tablet RxNorm: 247379 1 Tablet(s) PO QD for mood 07/201801/30/2019 Inactive Zithromax Z-Lj 250 mg tablet RxNorm: 852311 Tablet(s) PO take as directed 11/04/2018 11/19/2018 Inactive Insulin Syringe 1 mL 29 gauge x 1/2" RxNorm: 2 s yringes daily with insulin Dx: E11.65 10/08/2018 No Stop Date Active gabapentin 300 mg capsule RxNorm: 559974 1 Capsule(s) PO QHS fo r neuropathy 09/18/2018 10/17/2018 Inactive cyclobenzaprine 5 mg tablet RxNorm: 155566 1 Tablet(s) PO TID a s needed 09/09/2018 09/08/2018 Inactive cyclobenzaprine 5 mg tablet RxNorm: 626569 1 Tablet(s) PO TID a s needed 09/09/2018 10/08/2018 Inactive prednisone 20 mg tablet RxNorm: 990671 1 Tablet(s) PO QD 09/08/2018 0 09/12/2018 Inactive Lantus Solostar U-100 Insulin 100 unit/mL (3 mL) subcu taneous pen RxNorm: 909070 55 Unit(s) SQ QAM 08/28/2018 11/03/2018 Inactive hydroxyzine HCl 25 mg tablet RxNorm: 082246 1 Tablet(s) PO QHS for itching 08/20/2018 05/12/2019 Inactive Lexapro 10 mg tablet RxNorm: 354067 1 Tablet(s) PO QD for mood 08/0210/18/2018 Inactive sumatriptan 100 mg tablet RxNorm: 326396 1 Tablet(s) PO at headache onset. May repeat 1 in two hours if headache remains. Max of 2 per 24 hours 04/02/2018 05/20/2018 Inactive Diflucan 150 mg tablet RxNorm: 430552 1 Tablet(s) PO QD 03/18/2018 Inactive Diflucan 150 mg tablet RxNorm: 477075 1 Tablet(s) PO QD 03/18/2018 Inactive Flagyl 500 mg tablet RxNorm: 601510 1 Tablet(s) PO TID 03/17/2018 Inactive Levaquin 500 mg tablet RxNorm: 753104 1 Tablet(s) PO QD 03/17/2018 Inactive Levaquin 500 mg tablet RxNorm: 038179 1 Tablet(s) PO QD 03/17/2018 Inactive Flagyl 500 mg tablet RxNorm: 236541 1 Tablet(s) PO TID 03/17/2018 Inactive ketoconazole 200 mg tablet RxNorm: 389865 1 Tablet(s) PO QD 019 03/19/2018 Inactive Celebrex 200 mg capsule RxNorm: 687933 1 Capsule(s) PO BID 02/06/2005/20/2018 Inactive tramadol 50 mg tablet RxNorm: 410311 1 Tablet(s) PO TID as needed 1 04/08/2017 05/20/2018 Inactive gabapentin 300 mg capsule RxNorm: 170393 1 Capsule(s) PO BID 201705/20/2018 Inactive Diflucan 150 mg tablet RxNorm: 578188 1 Tablet(s) PO QD 01/20/2018 Inactive pramipexole 1 mg tablet RxNorm: 893255 1 Tablet(s) PO Q PM FOR RESTLESS LEGS (REPLACES REQUIP) 01/08/2018 02/11/2019 Inactive cyclobenzaprine 10 mg tablet RxNorm: 447480 1 Tablet(s) PO TID as needed for muscle spasm 12/17/2017 05/20/2018 Inactive pramipexole 1 mg tablet RxNorm: 377245 TAKE 1 TABLET BY MOUTH ONCE DAILY IN THE EVENING FOR RESTLESS LEGS (REPLACES REQUIP) 12/04/2017 01/05/2018 Inac tive Amaryl 4 mg tablet RxNorm: 905550 1 Tablet(s) PO BID replaces 2mg 0 11/05/2017 12/16/2017 Inactive Singulair 10 mg tablet RxNorm: 195595 1 Tablet(s) PO QHS for al lergies/lungs 10/30/2017 12/16/2017 Inactive Diflucan 100 mg tablet RxNorm: 371517 1 Tablet(s) PO QD 10/23/2017 Inactive Ativan 0.5 mg tablet RxNorm: 162619 TAKE 1 TABLET BY MOUTH THRE E TIMES DAILY 08/30/2017 11/20/2018 Inactive buspirone 5 mg tablet RxNorm: 038896 1 Tablet(s) PO TID 07/11/2017 Inactive propranolol 60 mg tablet RxNorm: 515366 1 Tablet(s) PO BID repl aces 40mg dose 06/26/2017 12/16/2017 Inactive Amaryl 4 mg tablet RxNorm: 709098 1 Tablet(s) PO BID replaces 2mg 0 06/12/2017 11/05/2017 Inactive omeprazole 40 mg capsule,delayed release RxNorm: 806736 1 Capsule(s) PO BID TAKE ONE CAPSULE BY MOUTH TWICE DAILY 05/30/2017 11/25/2017 Inactive pramipexole 1 mg tablet RxNorm: 277856 1 Tablet(s) PO Q PM for restless legs--replaces requip 05/30/2017 11/25/2017 Inactive amitriptyline 50 mg tablet RxNorm: 679674 1 Tablet(s) PO QHS 201709/16/2017 Inactive Diflucan 100 mg tablet RxNorm: 713512 1 Tablet(s) PO BID 05/07/2017 0 05/20/2017 Inactive nystatin (bulk) 100 million unit powder RxNorm: Application TO P BID 05/07/2017 05/20/2018 Inactive cholestyramine (with sugar) 4 gram oral powder RxNorm: 782516 1 Unit Dose PO QD 05/07/2017 01/20/2018 Inactive Ativan 0.5 mg tablet RxNorm: 046397 TAKE ONE TABLET BY MOUTH TH REE TIMES DAILY 05/01/2017 09/02/2017 Inactive Trulicity 1.5 mg/0.5 mL subcutaneous pen injector RxNorm: 15 48981 1 Unit Dose SQ WEEKLY 02/22/2017 03/23/2017 Inactive doxycycline hyclate 100 mg capsule RxNorm: 1896316 1 Capsule(s) PO BID 01/23/2017 02/05/2017 Inactive Amaryl 4 mg tablet RxNorm: 295626 1 Tablet(s) PO BID replaces 2mg 1 03/25/2016 05/22/2017 Inactive magnesium oxide 400 mg capsule RxNorm: 653296 1 Capsule(s) PO QD 07/18/2017 Inactive Ativan 0.5 mg tablet RxNorm: 748856 TAKE ONE TABLET BY MOUTH TH REE TIMES DAILY 01/17/2017 05/01/2017 Inactive Amaryl 2 mg tablet RxNorm: 827184 1 Tablet(s) PO BID 12/27/201601/22 Inactive Amaryl 2 mg tablet RxNorm: 348090 1 Tablet(s) PO BID 12/26/201612/26 Inactive Ativan 0.5 mg tablet RxNorm: 703566 TAKE ONE TABLET BY MOUTH TH REE TIMES DAILY 12/05/2016 01/18/2017 Inactive pramipexole 1 mg tablet RxNorm: 369473 1 Tablet(s) PO Q PM for restless legs--replaces requip 11/26/2016 05/30/2017 Inactive Mobic 15 mg tablet RxNorm: 994187 1 Tablet(s) PO QD 10/08/20162016 Inactive cyclobenzaprine 5 mg tablet RxNorm: 792370 1/2- 1 Tablet(s) PO TID 10/08/2016 10/17/2016 Inactive Ativan 0.5 mg tablet RxNorm: 923222 1 Tablet(s) PO TID 09/20/201607/2016 Inactive amitriptyline 50 mg tablet RxNorm: 281880 1 Tablet(s) PO QHS 201605/30/2017 Inactive propranolol 60 mg tablet RxNorm: 618959 1 Tablet(s) PO BID repl aces 40mg dose 09/19/2016 06/26/2017 Inactive Ativan 0.5 mg tablet RxNorm: 342882 1 Tablet(s) PO TID 08/20/2016 Inactive omeprazole 40 mg capsule,delayed release RxNorm: 143248 1 Capsule(s) PO BID TAKE ONE CAPSULE BY MOUTH TWICE DAILY 08/20/2016 05/30/2017 Inactive amitriptyline 50 mg tablet RxNorm: 791221 1 Tablet(s) PO QHS 201609/18/2016 Inactive pramipexole 1 mg tablet RxNorm: 348457 1 Tablet(s) PO Q PM for restless legs--replaces requip 07/23/2016 11/25/2016 Inactive Amaryl 2 mg tablet RxNorm: 195875 1 Tablet(s) PO BID 07/23/201612/27 Inactive propranolol 40 mg tablet RxNorm: 164395 1 Tablet(s) PO BID 07/13/1909/18/2016 Inactive Ativan 0.5 mg tablet RxNorm: 613889 1 Tablet(s) PO QID 06/19/2016 Inactive Amaryl 2 mg tablet RxNorm: 758285 1 Tablet(s) PO BID 06/19/201607/22 Inactive Ativan 0.5 mg tablet RxNorm: 173359 1 Tablet(s) PO QID 06/19/2016 Inactive buspirone 5 mg tablet RxNorm: 699177 1 Tablet(s) PO TID 06/19/2016 Inactive Ativan 0.5 mg tablet RxNorm: 838179 1 Tablet(s) PO BID 05/24/2016 Inactive buspirone 5 mg tablet RxNorm: 846595 1 Tablet(s) PO TID 05/23/2016 Inactive Macrobid 100 mg capsule RxNorm: 078341 1 Capsule(s) PO QOD 05/03/1910/07/2016 Inactive pramipexole 1 mg tablet RxNorm: 396556 Tablet(s) 1 Tabl et(s) PO QPM for restless legs--replaces requip 04/26/2016 06/24/2016 Inactive propranolol 40 mg tablet RxNorm: 643383 TAKE ONE TABLET BY MOUT H TWICE DAILY 04/26/2016 06/24/2016 Inactive Detrol LA 4 mg capsule,extended release RxNorm: 361761 1 Capsul e(s) PO QHS 04/03/2016 05/02/2016 Inactive prednisone 20 mg tablet RxNorm: 834869 1 Tablet(s) PO QD 02/29/2016 0 03/04/2016 Inactive Actos 30 mg tablet RxNorm: 369165 TAKE ONE TABLET BY MOUTH ONCE DAILY 02/27/2016 12/19/2016 Inactive clindamycin 300 mg capsule RxNorm: 683930 1 Capsule(s) PO TID 02/0102/08/2016 Inactive Flagyl 500 mg tablet RxNorm: 426050 1 Tablet(s) PO BID 02/02/201609/2015 Inactive omeprazole 40 mg capsule,delayed release RxNorm: 604213 TAKE ONE CAPSULE BY MOUTH TWICE DAILY 01/15/2016 07/12/2016 Inactive gabapentin 300 mg capsule RxNorm: 869004 1 Capsule(s) PO QAM an d 2 po q HS 01/05/2016 06/18/2016 Inactive gabapentin 300 mg capsule RxNorm: 383263 1 Capsule(s) P O BID 1 Capsule(s) PO QHS 12/05/2015 01/04/2016 Inactive cyclobenzaprine 10 mg tablet RxNorm: 509163 1 Tablet(s) PO TID for spasm as needed for muscle spasm 12/05/2015 06/18/2016 Inactive ciprofloxacin 250 mg tablet RxNorm: 308517 1 Tablet(s) PO BID 12/0412/14/2015 Inactive pramipexole 1 mg tablet RxNorm: 635058 Tablet(s) 1 Tabl et(s) PO QPM for restless legs--replaces requip 11/07/2015 11/26/2016 Inactive Januvia 100 mg tablet RxNorm: 269283 1 Tablet(s) PO QD 10/26/201504/2015 Inactive propranolol 40 mg tablet RxNorm: 126030 TAKE ONE TABLET BY MOUT H TWICE DAILY 10/25/2015 04/21/2016 Inactive gabapentin 300 mg capsule RxNorm: 697816 1 Capsule(s) PO QHS 201512/04/2015 Inactive Cipro 500 mg tablet RxNorm: 922709 1 Tablet(s) PO BID 10/05/201511/2015 Inactive pramipexole 1 mg tablet RxNorm: 253691 Tablet(s) 1 Tabl et(s) PO QPM for restless legs--replaces requip 10/04/2015 11/02/2015 Inactive propranolol 40 mg tablet RxNorm: 809745 TAKE ONE TABLET BY MOUT H TWICE DAILY 09/26/2015 10/24/2015 Inactive Amaryl 2 mg tablet RxNorm: 755621 1 Tablet(s) PO QD 09/15/20152016 Inactive gabapentin 300 mg capsule RxNorm: 319048 1 Capsule(s) PO QHS 201510/14/2015 Inactive buspirone 5 mg tablet RxNorm: 968805 1 Tablet(s) PO TID 09/15/2015 Inactive pramipexole 1 mg tablet RxNorm: 330252 Tablet(s) 1 Tabl et(s) PO QPM for restless legs--replaces requip 09/08/2015 10/03/2015 Inactive pramipexole 1 mg tablet RxNorm: 955680 1 Tablet(s) PO Q PM for restless legs--replaces requip 08/08/2015 09/08/2015 Inactive Amaryl 2 mg tablet RxNorm: 078678 1 Tablet(s) PO QD 07/07/20152015 Inactive pramipexole 1 mg tablet RxNorm: 327791 1 Tablet(s) PO Q PM for restless legs--replaces requip 07/05/2015 08/03/2015 Inactive ropinirole 2 mg tablet RxNorm: 474741 TAKE ONE TABLET BY MOUTH TWICE DAILY 05/09/2015 09/14/2015 Inactive Diflucan 100 mg tablet RxNorm: 460154 1 Tablet(s) PO QD 03/30/2015 Inactive propranolol 40 mg tablet RxNorm: 459386 1 Tablet(s) PO BID 02/24/20 15 08/21/2015 Inactive [SAVINGS FOR UNINSURED PATIE NTS -- BIN:990895, PCN: ASPROD1, Group: AME08, ID# [id number], Process claim through [employer], for questions: . THIS IS NOT INSURANCE.] Flagyl 500 mg tablet RxNorm: 193128 1 Tablet(s) PO BID 02/03/201502/2015 Inactive Cipro 500 mg tablet RxNorm: 815953 1 Tablet(s) PO BID 02/03/201502/01 Inactive Carafate 1 gram tablet RxNorm: 395162 1 Tablet(s) PO QID make i nto slurry 02/03/2015 09/14/2015 Inactive ondansetron HCl 4 mg tablet RxNorm: 249994 1 Tablet(s) PO Q4H as needed for nausea 12/29/2014 01/04/2016 Inactive Diflucan 100 mg tablet RxNorm: 562662 1 Tablet(s) PO QD 12/29/2014 Inactive Keflex 500 mg capsule RxNorm: 430118 1 Capsule(s) PO TID 12/29/2014 1 03/09/2014 Inactive omeprazole 40 mg capsule,delayed release RxNorm: 124448 1 Capsu le(s) PO BID 12/27/2014 12/21/2015 Inactive [SAVINGS FOR UNINSUR ED PATIENTS -- BIN:370160, PCN: ASPROD1, Group: AME08, ID# [id number], Process claim through [employer], for questions: . THIS IS NOT INSURANCE.] ropinirole 2 mg tablet RxNorm: 036995 1 Tablet(s) PO BID 09/29/2014 0 03/27/2015 Inactive [SAVINGS FOR UNINSURED PATIENTS -- BIN:0 65110, PCN: ASPROD1, Group: AME08, ID# [id number], Process claim through [employer], for questions: . THIS IS NOT INSURANCE.] buspirone 5 mg tablet RxNorm: 919241 1 Tablet(s) PO TID 09/17/2014 Inactive ropinirole 2 mg tablet RxNorm: 273724 1 Tablet(s) PO BID 09/02/2014 0 09/28/2014 Inactive [SAVINGS FOR UNINSURED PATIENTS -- BIN:0 35103, PCN: ASPROD1, Group: AME08, ID# [id number], Process claim through [employer], for questions: . THIS IS NOT INSURANCE.] Zyrtec 10 mg tablet RxNorm: 6314188 1 Tablet(s) PO QD 09/02/201412/02 Inactive propranolol 40 mg tablet RxNorm: 138108 1 Tablet(s) PO BID 07/21/19 15 02/23/2015 Inactive [SAVINGS FOR UNINSURED PATIE NTS -- BIN:826993, PCN: ASPROD1, Group: AME08, ID# [id number], Process claim through [employer], for questions: . THIS IS NOT INSURANCE.] ropinirole 2 mg tablet RxNorm: 781736 1 Tablet(s) PO QHS 05/14/2014 0 09/01/2014 Inactive [SAVINGS FOR UNINSURED PATIENTS -- BIN:0 48596, PCN: ASPROD1, Group: AME08, ID# [id number], Process claim through [employer], for questions: . THIS IS NOT INSURANCE.] cyclobenzaprine 10 mg tablet RxNorm: 982728 1 Tablet(s) PO QHS for spasm 04/06/2014 09/01/2014 Inactive ipratropium-albuterol 0.5 mg-3 mg(2.5 mg base)/3 mL ne bulization soln RxNorm: 8364069 1 Unit Dose INH Q4H 03/16/2014 No Stop Date Active [SAVINGS FOR UNINSURED PATIENTS -- BIN:464196, PCN: ASPROD1, Group: AME08, ID# [id number], Process claim through [employer], for questions: . THIS IS NOT INSURANCE.] prednisone 20 mg tablet RxNorm: 664373 1 Tablet(s) PO BID 03/09/2014 03/15/2014 Inactive [SAVINGS FOR UNINSURED PATIENTS -- BIN:0 75782, PCN: ASPROD1, Group: AME08, ID# [id number], Process claim through [employer], for questions: . THIS IS NOT INSURANCE.] ipratropium-albuterol 0.5 mg-3 mg(2.5 mg base)/3 mL ne bulization soln RxNorm: 4823152 1 Unit Dose INH Q4H 03/09/2014 03/15/2014 Inactive [SAVINGS FOR UNINSURED PATIENTS -- BIN:048313, PCN: ASPROD1, Group: AME08, ID# [id number], Process claim through [employer], for questions: . THIS IS NOT INSURANCE.] Levaquin 500 mg tablet RxNorm: 100016 1 Tablet(s) PO QD 03/09/2014 Inactive [SAVINGS FOR UNINSURED PATIENTS -- BIN:0 73345, PCN: ASPROD1, Group: AME08, ID# [id number], Process claim through [employer], for questions: . THIS IS NOT INSURANCE.] Carafate 1 gram tablet RxNorm: 528254 1 Tablet(s) PO AC & HS ma ke into slurry 02/09/2014 09/01/2014 Inactive [SAVINGS FOR UNINSUR ED PATIENTS -- BIN:790007, PCN: ASPROD1, Group: AME08, ID# [id number], Process claim through [employer], for questions: . THIS IS NOT INSURANCE.] Fioricet 50 mg-300 mg-40 mg capsule RxNorm: 4649278 1-2 Capsule(s) PO Q4H as needed for headache --max of 6 a day 02/09/2014 09/01/2014 Inactive [SAVINGS FOR UNINSURED PATIENTS -- BIN:467535, PCN: ASPROD1, Group: AME08, ID# [id number], Process claim through [employer], for questions: . THIS IS NOT INSURANCE.] propranolol 40 mg tablet RxNorm: 696824 1 Tablet(s) PO BID 12/08/19 14 06/04/2014 Inactive [SAVINGS FOR UNINSURED PATIE NTS -- BIN:837531, PCN: ASPROD1, Group: AME08, ID# [id number], Process claim through [employer], for questions: . THIS IS NOT INSURANCE.] buspirone 5 mg tablet RxNorm: 532111 1 Tablet(s) PO TID 12/02/2013 Inactive omeprazole 40 mg capsule,delayed release RxNorm: 102195 1 Capsu le(s) PO BID 11/25/2013 11/19/2014 Inactive [SAVINGS FOR UNINSUR ED PATIENTS -- BIN:021472, PCN: ASPROD1, Group: AME08, ID# [id number], Process claim through [employer], for questions: . THIS IS NOT INSURANCE.] ropinirole 2 mg tablet RxNorm: 569352 1 Tablet(s) PO QHS 11/10/2013 0 05/08/2014 Inactive [SAVINGS FOR UNINSURED PATIENTS -- BIN:0 64544, PCN: ASPROD1, Group: AME08, ID# [id number], Process claim through [employer], for questions: . THIS IS NOT INSURANCE.] Cipro 500 mg tablet RxNorm: 509478 1 Tablet(s) PO BID 10/21/201312/03 Inactive [SAVINGS FOR UNINSURED PATIENTS -- BIN:0 45399, PCN: ASPROD1, Group: AME08, ID# [id number], Process claim through [employer], for questions: . THIS IS NOT INSURANCE.] hydroxyzine HCl 25 mg tablet RxNorm: 800302 1 Tablet(s) PO Q4-6 H as needed 10/05/2013 01/04/2016 Inactive [SAVINGS FOR UNINSUR ED PATIENTS -- BIN:541186, PCN: ASPROD1, Group: AME08, ID# [id number], Process claim through [employer], for questions: . THIS IS NOT INSURANCE.] triamcinolone acetonide 0.1 % topical cream RxNorm: 3036899 Appl ication TOP BID 10/05/2013 09/01/2014 Inactive [SAVINGS FOR UNINSUR ED PATIENTS -- BIN:600018, PCN: ASPROD1, Group: AME08, ID# [id number], Process claim through [employer], for questions: . THIS IS NOT INSURANCE.] albuterol sulfate HFA 90 mcg/actuation aerosol inhaler RxNor m: 3571246 2 Puff(s) INH Q4H as needed for cough 10/01/2013 12/22/2013 Inactive [MAKSIM INGS FOR UNINSURED PATIENTS -- BIN:374051, PCN: ASPROD1, Group: AME08, ID# [id number], Process claim through [employer], for questions: . THIS IS NOT INSURANCE.] propranolol 40 mg tablet RxNorm: 980263 1 Tablet(s) PO BID 09/02/19 14 11/29/2013 Inactive [SAVINGS FOR UNINSURED PATIE NTS -- BIN:335102, PCN: ASPROD1, Group: AME08, ID# [id number], Process claim through [employer], for questions: . THIS IS NOT INSURANCE.] propranolol 40 mg tablet RxNorm: 209715 1 Tablet(s) PO BID 08/05/19 14 08/31/2013 Inactive [SAVINGS FOR UNINSURED PATIE NTS -- BIN:921725, PCN: ASPROD1, Group: AME08, ID# [id number], Process claim through [employer], for questions: . THIS IS NOT INSURANCE.] Toprol XL 50 mg tablet,extended release RxNorm: 369135 1 Tablet (s) PO QHS 07/23/2013 08/03/2013 Inactive Macrobid 100 mg capsule RxNorm: 938324 1 Capsule(s) PO BID 07/04/19 14 07/09/2013 Inactive Toprol XL 50 mg tablet,extended release RxNorm: 137581 1 Tablet (s) PO QHS 05/28/2013 06/26/2013 Inactive ciprofloxacin 500 mg tablet RxNorm: 078686 1 Tablet(s) PO BID 05/2706/02/2013 Inactive Bystolic 5 mg tablet RxNorm: 668659 1 Tablet(s) PO QD 05/27/201305/03 Inactive ropinirole 2 mg tablet RxNorm: 082193 1 Tablet(s) PO QHS 04/22/2013 0 11/09/2013 Inactive Cipro 250 mg tablet RxNorm: 031712 1 Tablet(s) PO BID 04/06/201311/2013 Inactive ropinirole 2 mg tablet RxNorm: 184316 1 Tablet(s) PO QHS 02/17/2013 0 04/21/2013 Inactive Amaryl 2 mg tablet RxNorm: 240423 1 Tablet(s) PO QAM 11/11/201211/10 Inactive Amaryl 2 mg tablet RxNorm: 964149 1 Tablet(s) PO QAM 11/11/201204/05 Inactive omeprazole 40 mg capsule,delayed release RxNorm: 458561 1 Capsu le(s) PO BID 08/14/2012 08/08/2013 Inactive Bystolic 5 mg tablet RxNorm: 988673 1 Tablet(s) PO QD 08/14/201205/03 Inactive propranolol 60 mg tablet RxNorm: 110890 Tablet(s) PO TAKE 1 TAB LET TWICE DAILY 08/01/2012 09/01/2012 Inactive Bystolic 5 mg tablet RxNorm: 532940 1 Tablet(s) PO QD 07/21/201207/02 Inactive Bystolic 5 mg tablet RxNorm: 976441 1 Tablet(s) PO QD 07/21/201207/03 Inactive Prilosec 40 mg capsule,delayed release RxNorm: 397828 1 Capsule (s) PO BID 06/24/2012 07/21/2012 Inactive buspirone 10 mg tablet RxNorm: 752380 1 Tablet(s) PO TID 05/08/2012 0 05/23/2016 Inactive Valium 10 mg tablet RxNorm: 222546 1 Tablet(s) PO BID 04/02/201207/03 Inactive Endocet 10 mg-325 mg tablet RxNorm: 2128484 1 Tablet(s) PO QID 03/0607/21/2012 Inactive as needed for severe pain Valium 10 mg tablet RxNorm: 072499 1 Tablet(s) PO BID 02/27/2012 No S top Date Active Endocet 10 mg-325 mg tablet RxNorm: 8907498 1 Tablet(s) PO QID 02/0203/27/2012 Inactive as needed for severe pain Endocet 10 mg-325 mg tablet RxNorm: 0666096 1 Tablet(s) PO QID 01/0302/26/2012 Inactive as needed for severe pain Valium 10 mg tablet RxNorm: 209301 1 Tablet(s) PO BID 01/29/2012 No S top Date Active Protonix 40 mg tablet,delayed release RxNorm: 824240 1 Tablet(s ) PO QD 01/28/2012 07/21/2012 Inactive metformin ER 500 mg tablet,extended release 24 hr RxNorm: 86 0977 1 Tablet(s) PO QD 12/26/2011 07/20/2012 Inactive Trazadone 150 mg Tablet RxNorm: 1 Tablet(s) PO QHS prn sleep 1 04/23/2012 Inactive Endocet 10 mg-325 mg tablet RxNorm: 6094691 1 Tablet(s) PO QID 12/0301/24/2012 Inactive as needed for severe pain Nexium 40 mg capsule,delayed release RxNorm: 252893 1 Capsule(s ) PO QD 12/26/2011 01/27/2012 Inactive Symbicort 160 mcg-4.5 mcg/actuation HFA Aerosol Inhaler RxNo rm: 7140253 2 Puff(s) INH BID 12/04/2011 07/21/2012 Inactive Endocet 10 mg-325 mg tablet RxNorm: 0256202 1 Tablet(s) PO QID 11/0312/25/2011 Inactive as needed for severe pain metformin ER 500 mg tablet,extended release 24 hr RxNorm: 86 0977 1 Tablet(s) PO QD 11/20/2011 12/19/2011 Inactive metformin ER 500 mg tablet,extended release 24 hr RxNorm: 86 0977 1 Tablet(s) PO QD 11/20/2011 11/19/2011 Inactive amitriptyline 100 mg tablet RxNorm: 020857 Tablet(s) PO QHS 1 a nd /2 tabs QHS 11/12/2011 11/13/2011 Inactive Valium 10 mg tablet RxNorm: 048832 1 Tablet(s) PO BID 11/09/2011 No S top Date Active Endocet 10 mg-325 mg tablet RxNorm: 3592837 1 Tablet(s) PO QID 10/0211/14/2011 Inactive as needed for severe pain Aricept 10 mg Tab RxNorm: 886164 1 Tablet(s) PO QD 10/05/2011 013 Inactive Valium 10 mg tablet RxNorm: 843785 1 Tablet(s) PO BID 10/05/2011 No S top Date Active Endocet 10 mg-325 mg Tab RxNorm: 2831591 1 Tablet(s) PO QID 012 10/09/2011 Inactive as needed for severe pain Aricept 10 mg Tab RxNorm: 209270 1 Tablet(s) PO QD 08/14/2011 012 Inactive Endocet 10 mg-325 mg Tab RxNorm: 0808585 1 Tablet(s) PO QID 012 08/31/2011 Inactive as needed for severe pain Valium 10 mg Tab RxNorm: 305284 1 Tablet(s) PO BID 08/02/2011 No Stop Date Active propranolol 60 mg tablet RxNorm: 274079 1 Tablet(s) PO BID 07/26/19 12 09/11/2011 Inactive amitriptyline 100 mg tablet RxNorm: 369017 Tablet(s) PO QHS 1 a nd 1/2 tabs QHS 06/20/2011 09/11/2011 Inactive buspirone 10 mg tablet RxNorm: 321971 1 Tablet(s) PO BID 06/18/2011 0 09/15/2011 Inactive propranolol 60 mg Tab RxNorm: 921795 1 Tablet(s) PO BID 06/18/2011 Inactive gabapentin 800 mg Tab RxNorm: 438918 1 Tablet(s) PO BID 06/18/2011 Inactive ropinirole 2 mg tablet RxNorm: 651272 1 Tablet(s) PO QHS 05/29/2011 0 08/26/2011 Inactive trimethoprim 100 mg Tab RxNorm: 373373 1 Tablet(s) PO QHS 05/29/2011 07/21/2012 Inactive Endocet 10 mg-325 mg Tab RxNorm: 9076665 1 Tablet(s) PO QID 012 2011 Inactive as needed for severe pain Valium 10 mg Tab RxNorm: 376012 1 Tablet(s) PO QHS N eed to take med as prescribed. this is a 40 day RX. No early fills. 05/17/2011 05/20/2018 Inactive propranolol 60 mg Tab RxNorm: 386001 1 Tablet(s) PO BID 04/16/2011 Inactive Neurontin 800 mg Tab RxNorm: 935665 1 Tablet(s) PO QHS 04/05/201103/2011 Inactive Endocet 10 mg-325 mg Tab RxNorm: 6831964 1 Tablet(s) PO QID 012 05/02/2011 Inactive as needed for severe pain oxycodone-acetaminophen 10 mg-325 mg tablet RxNorm: 6650074 1 Ta blet(s) PO Q4H 03/28/2011 05/19/2012 Inactive Valium 10 mg Tab RxNorm: 236419 1 Tablet(s) PO QHS 03/28/2011 012 Inactive buspirone 10 mg Tab RxNorm: 982147 1 Tablet(s) PO BID 03/27/201106/02 Inactive propranolol 60 mg Tab RxNorm: 117981 1 Tablet(s) PO BID 03/19/2011 Inactive Klor-Con M20 20 mEq Tab RxNorm: 9715419 1 Tablet(s) PO QD 03/19/2011 07/21/2012 Inactive Aricept 10 mg Tab RxNorm: 447657 1 Tablet(s) PO QD 02/27/2011 012 Inactive propranolol 60 mg Tab RxNorm: 701134 1 Tablet(s) PO BID 02/19/2011 Inactive omeprazole 40 mg capsule,delayed release RxNorm: 913488 1 Capsu le(s) PO BID 01/24/2011 05/23/2011 Inactive clindamycin 300 mg capsule RxNorm: 016449 1 Capsule(s) PO TID 01/2402/02/2011 Inactive propranolol 60 mg Tab RxNorm: 351397 1 Tablet(s) PO BID 01/22/2011 No Stop Date Active nystatin 100,000 unit/g Topical Cream RxNorm: 790962 Applicatio n TOP BID 01/15/2011 01/14/2011 Inactive to rash for 2-4 week s Diflucan 200 mg Tab RxNorm: 836403 1 Tablet(s) PO QD 01/15/201101/28 Inactive buspirone 10 mg Tab RxNorm: 207751 1 Tablet(s) PO BID 01/08/201103/05 Inactive Valium 10 mg Tab RxNorm: 343654 1 Tablet(s) PO QHS 01/05/2011 012 Inactive Diflucan 200 mg Tab RxNorm: 333497 1 Tablet(s) PO QD 01/01/201101/14 Inactive Diflucan 200 mg Tab RxNorm: 257188 1 Tablet(s) PO QD 12/18/201012/31 Inactive Valium 10 mg Tab RxNorm: 339072 1 Tablet(s) PO QHS 12/12/2010 011 Inactive Diflucan 200 mg Tab RxNorm: 550847 1 Tablet(s) PO QD 12/07/201012/18 Inactive Aricept 10 mg Tab RxNorm: 294814 1 Tablet(s) PO QD 11/20/2010 011 Inactive ropinirole 1 mg Tab RxNorm: 668413 1 Tablet(s) PO QHS 11/16/201005/03 Inactive enalapril maleate 5 mg Tab RxNorm: 116446 1 Tablet(s) PO QD 011 05/20/2018 Inactive buspirone 10 mg Tab RxNorm: 196393 1 Tablet(s) PO BID 11/16/201012/02 Inactive Valium 10 mg Tab RxNorm: 867917 1 Tablet(s) PO QHS 11/07/2010 011 Inactive Pyridium 100 mg Tab RxNorm: 2504248 1 Tablet(s) PO TID 11/02/201004/2010 Inactive Macrobid 100 mg Cap RxNorm: 6884657 1 Capsule(s) PO BID 11/02/2010 Inactive buspirone 10 mg Tab RxNorm: 914626 1 Tablet(s) PO QHS 10/18/201005/02 Inactive propranolol 60 mg Tab RxNorm: 748301 1 Tablet(s) PO BID 09/18/2010 Inactive Valium 10 mg Tab RxNorm: 050887 1 Tablet(s) PO QHS 09/05/2010 011 Inactive Aricept 10 mg Tab RxNorm: 150689 1 Tablet(s) PO QD 08/14/2010 011 Inactive Valium 10 mg Tab RxNorm: 679827 1 Tablet(s) PO QHS 06/26/2010 011 Inactive ropinirole 1 mg Tab RxNorm: 488874 1 Tablet(s) PO QHS 06/19/201010/02 Inactive omeprazole 40 mg Cap, delayed release RxNorm: 469372 1 Capsule( s) PO QD 06/07/2010 10/04/2010 Inactive Endocet 10 mg-325 mg Tab RxNorm: 2968801 1 Tablet(s) PO QID as needed for severe pain 06/07/2010 03/07/2011 Inactive Endocet 10 mg-325 mg Tab RxNorm: 1803388 1 Tablet(s) PO QID as needed for severe pain 05/04/2010 06/02/2010 Inactive Valium 10 mg Tab RxNorm: 479683 1 Tablet(s) PO QHS 05/01/2010 011 Inactive propranolol 60 mg Tab RxNorm: 749707 1 Tablet(s) PO BID 04/03/2010 Inactive Valium 10 mg Tab RxNorm: 875292 1 Tablet(s) PO QHS 03/28/2010 011 Inactive omeprazole 40 mg Cap, Delayed Release RxNorm: 093139 1 Capsule( s) PO QD 03/28/2010 06/06/2010 Inactive Endocet 10 mg-325 mg Tab RxNorm: 2058907 1 Tablet(s) PO QID prn ari n 03/27/2010 05/20/2018 Inactive Valium 10 mg Tab RxNorm: 526710 1 Tablet(s) PO QHS 02/20/2010 011 Inactive Diflucan 100 mg Tab RxNorm: 306756 1 Tablet(s) PO BID 01/23/201003/2009 Inactive Diflucan 100 mg Tab RxNorm: 080875 1 Tablet(s) PO BID 01/05/201001/02 Inactive Aricept 10 mg Tab RxNorm: 617203 1 Tablet(s) PO QD 12/01/2009 011 Inactive OxyContin 20 mg 12 hr Tab RxNorm: 9143682 1 Tablet(s) PO BID 200904/05/2010 Inactive oxycodone-acetaminophen 10 mg-325 mg Tab RxNorm: 9462362 1 Table t(s) PO Q4H 11/22/2009 11/26/2009 Inactive Phenergan 25 mg Tab RxNorm: 528205 1 Tablet(s) PO PRN MIGRAINE 11/0303/07/2011 Inactive Demerol 100 mg Tab RxNorm: 250854 1 Tablet(s) PO PRN MIGRAINE 11/2203/07/2011 Inactive Oxycodone-Acetaminophen 10 mg-325 mg Tab RxNorm: 3584181 1 Table t(s) PO Q4H 10/11/2009 10/15/2009 Inactive Percocet 10 mg-325 mg Tab RxNorm: 2333875 1 Tablet(s) PO Q4H 200910/24/2009 Inactive propranolol 60 mg Tab RxNorm: 885502 1 Tablet(s) PO BID 08/29/2009 Inactive Valium 10 mg Tab RxNorm: 866716 1 Tablet(s) PO QHS 08/16/2009 010 Inactive Keflex 500 mg Cap RxNorm: 950192 1 Capsule(s) PO BID 07/25/200907/31 Inactive Hydroxyzine 25 mg Tab RxNorm: 902446 1 Tablet(s) PO TID 07/25/2009 Inactive Prednisone 20 mg Tab RxNorm: 298411 1 Tablet(s) PO BID 07/25/2009 Inactive Demerol 100 mg Tab RxNorm: 524645 1 Tablet(s) PO PRN MIGRAINE 07/25 No Stop Date Active Ropinirole 1 mg Tab RxNorm: 189069 1 Tablet(s) PO HS 07/20/200902/14 Inactive Valium 10 mg Tab RxNorm: 398147 1 Tablet(s) PO QHS 07/18/2009 010 Inactive Endocet 10 mg-325 mg Tab RxNorm: 0919179 1 Tablet(s) PO TID 010 07/07/2009 Inactive Demerol 100 mg Tab RxNorm: 225348 1 Tablet(s) PO PRN MIGRAINE 06/08 No Stop Date Active Ropinirole 1 mg Tab RxNorm: 608306 1 Tablet(s) PO HS 05/16/200907/14 Inactive ipratropium-albuterol 0.5 mg-3 mg(2.5 mg base)/3 mL ne bulization soln RxNorm: 0147856 1 Unit Dose INH Q4H as needed No Start Date Active MagOx 400 mg (241.3 mg magnesium) tablet RxNorm: 852373 1 Table t(s) PO BID No Start Date Active Vitamin B12 1000mcg Tablet RxNorm: 1 Tablet(s) PO QD No Start Date Active Vitamin D3 5,000 unit tablet RxNorm: 699039 1 Tablet(s) PO QD No Star t Date Active Tylenol Arthritis Pain 650 mg tablet,extended release RxNorm : 0711963 1 Tablet(s) PO Q4H No Start Date Active Lotrimin AF 2 % topical powder RxNorm: 091765 1 Application TOP BID No Start Date Active enalapril maleate 5 mg Tab RxNorm: 076633 1 Tablet(s) PO QD No Star t Date 07/20/2012 Inactive Demerol 100 mg Tab RxNorm: 990543 Tablet(s) PO PRN MIGRAINE No Star t Date 06/02/2009 Inactive metformin 500 mg tablet RxNorm: 878673 1 Tablet(s) PO QD No Start D ate 04/05/2013 Inactive Breo Ellipta 100 mcg-25 mcg/dose powder for inhalation RxNor m: 6005228 1 Puff(s) INH BID No Start Date 01/04/2016 Inactive Mag-Oxide 400 mg Tab RxNorm: 693811 1 Tablet(s) PO QD No Start Date 0 07/21/2012 Inactive Cipro 500 mg Tab RxNorm: 559294 1 Tablet(s) PO QD No Start Date 04/05 Inactive Ativan 0.5 mg tablet RxNorm: 800477 1 Tablet(s) PO TID as needed No Start Date 05/06/2019 Inactive melatonin 3 mg tablet RxNorm: 041856 2 Tablet(s) PO QHS No Start Da te 08/19/2018 Inactive buspirone 10 mg Tab RxNorm: 879953 1 Tablet(s) PO QD No Start Date Inactive sucralfate 100 mg/mL Oral Susp RxNorm: 949942 2 Teaspoon(s) PO QID No Start Date 07/21/2012 Inactive hydrocodone 5 mg-acetaminophen 325 mg tablet RxNorm: 363636 1 Tablet(s) PO Q4H as needed No Start Date 08/19/2018 Inactive Amaryl 2 mg tablet RxNorm: 607619 1 Tablet(s) PO BID No Start Date Inactive OxyContin 20 mg 12 hr Tab RxNorm: 6030536 1 Tablet(s) PO BID No Sta rt Date 11/27/2009 Inactive propranolol 40 mg tablet RxNorm: 700038 1 Tablet(s) PO QID No Start Date 01/19/2018 Inactive Trazadone 150 mg Tablet RxNorm: 1-2 Tablet(s) PO QHS prn sleep No Start Date 08/09/2010 Inactive propranolol 60 mg Tab RxNorm: 339369 1/2 Tablet(s) PO BID No Start Date 01/21/2011 Inactive insulin NPH and regular human subcutaneous RxNorm: 1874791 subcu taneous No Start Date 11/20/2018 Inactive Ativan 0.5 mg tablet RxNorm: 461322 1 Tablet(s) PO QID No Start Date 06/18/2016 Inactive Vasotec 5 mg Tab RxNorm: 692789 1 Tablet(s) PO BID No Start Date 06/2011 Inactive Toprol XL 50 mg tablet,extended release RxNorm: 904138 1 Tablet (s) PO BID No Start Date 04/05/2013 Inactive Ativan 0.5 mg tablet RxNorm: 905288 1 Tablet(s) PO TID No Start Date 05/25/2016 Inactive Klor-Con M20 20 mEq Tab RxNorm: 7370648 1 Tablet(s) PO QD No Start Date 03/19/2011 Inactive sumatriptan 100 mg tablet RxNorm: 728390 1 Tablet(s) PO at headache onset--repeat in 2hrs if remains No Start Date 07/21/2012 Inactive propranolol 60 mg Tab RxNorm: 016295 1 Tablet(s) PO BID No Start Da te 08/28/2009 Inactive Cholestyramine Light 4 gram Oral Powder RxNorm: 3151831 1 Unit Dose PO QD in water No Start Date 07/21/2012 Inactive nystatin 100,000 unit/g Topical Powder RxNorm: 250466 Applicati on TOP BID No Start Date 07/21/2012 Inactive vitamin O53-pozwh acid sublingual RxNorm: sublingual No Start Date 07/05/2013 Inactive cyclobenzaprine 5 mg tablet RxNorm: 262270 1/2-1 Tablet (s) PO TID as needed for muscle spasm No Start Date 07/18/2017 Inactive tramadol 50 mg tablet RxNorm: 021241 2 Tablet(s) PO TID as need ed for pain No Start Date 09/01/2014 Inactive aspirin 81 mg Tab RxNorm: 920169 1 Tablet(s) PO QOD No Start Date 04/2013 Inactive Vitamin B12 1000mcg Tablet RxNorm: 1 Tablet(s) PO QD No Start Date 07/18/2017 Inactive cholestyramine (with sugar) 4 gram oral powder RxNorm: 09046 3 1 Unit(s) PO QD as needed No Start Date 05/20/2018 Inactive ProAir HFA 90 mcg/Actuation Aerosol Inhaler RxNorm: 450051 2 Puff(s) INH Q4H prn shortness of breath No Start Date 07/21/2012 Inactive pravastatin 10 mg Tab RxNorm: 342965 1 Tablet(s) PO QD No Start Date 07/21/2012 Inactive gabapentin 800 mg Tab RxNorm: 752790 1 Tablet(s) PO BID No Start Da te 06/03/2011 Inactive Endocet 10 mg-325 mg Tab RxNorm: 7843218 1 Tablet(s) PO TID No Star t Date 06/02/2009 Inactive Naproxen 500 mg Tab RxNorm: 677102 1 Tablet(s) PO BID No Start Date 0 04/05/2010 Inactive Valium 10 mg Tab RxNorm: 945048 1 Tablet(s) PO BID No Start Date 07/04 Inactive enalapril maleate 5 mg Tab RxNorm: 032571 1 Tablet(s) PO QD No Star t Date 11/15/2010 Inactive doxepin 10 mg capsule RxNorm: 1276530 2 Capsule(s) PO QHS No Start Date 09/17/2018 Inactive MS Contin 15 mg Tab RxNorm: 829008 1 Tablet(s) PO BID No Start Date 0 09/18/2010 Inactive buspirone 5 mg tablet RxNorm: 342268 1 Tablet(s) PO TID No Start Da te 12/01/2013 Inactive [place] 3 Fish Oil Cap RxNorm: 1 Capsule(s) PO QD No Start Date 07/03 Inactive enalapril maleate 5 mg Tab RxNorm: 172167 1/2 Tablet(s) PO QD No St art Date 03/07/2011 Inactive Lyrica 75 mg capsule RxNorm: 876521 1 Capsule(s) PO QHS No Start Da te 02/08/2014 Inactive Lopressor 100 mg tablet RxNorm: 236138 1 Tablet(s) PO BID No Start Date 06/08/2018 Inactive Lantus Solostar U-100 Insulin 100 unit/mL (3 mL) subcu taneous pen RxNorm: 909910 45 Unit(s) SQ QAM No Start Date 05/20/2018 Inactive aspirin 81 mg tablet RxNorm: 857402 1 Tablet(s) PO QD No Start Date 0 09/14/2015 Inactive diltiazem CD 240 mg capsule,extended release 24 hr RxNorm: 8 53813 1 Capsule(s) PO QD No Start Date 05/25/2019 Inactive insulin NPH isophane U-100 human subcutaneous RxNorm: 862496 beckwith bcutaneous No Start Date 04/20/2019 Inactive sumatriptan 100 mg tablet RxNorm: 992193 1 Tablet(s) PO at headache onset. May repeat 1 in two hours if headache remains. Max of 2 per 24 hours No Start Date 04/01/2018 Inactive gabapentin 300 mg capsule RxNorm: 373125 1 Capsule(s) PO QHS No Sta rt Date 02/04/2018 Inactive Topamax 25 mg Tab RxNorm: 802578 Oral No Start Date 03/07/2011 In active Senokot-S 8.6 mg-50 mg Tab RxNorm: 8696611 1 Tablet(s) PO QD No Sta rt Date 03/07/2011 Inactive metformin ER 500 mg 24 hr tablet,extended release RxNorm: 18 28136 1 Tablet(s) PO QD No Start Date 05/20/2018 Inactive Symbicort 80 mcg-4.5 mcg/actuation HFA Aerosol Inhaler RxNor m: 5496592 2 Puff(s) INH BID No Start Date 04/05/2013 Inactive metoprolol tartrate 25 mg tablet RxNorm: 967883 1 Tablet(s) PO BID No Start Date 05/20/2019 Inactive propranolol 60 mg Tab RxNorm: 597916 1/2 Tablet(s) PO BID No Start Date 07/21/2012 Inactive metformin ER 500 mg 24 hr tablet,extended release RxNorm: 18 71882 2 Tablet(s) PO QD No Start Date 12/16/2017 Inactive Insulin Syringe 1 mL 29 gauge x 1/2" RxNorm: 2 s yringes daily with insulin Dx: E11.65 No Start Date 10/07/2018 Inactive Amitriptyline 75 mg Tab RxNorm: 673747 1 Tablet(s) PO QHS No Start Date 10/23/2009 Inactive donepezil 10 mg Tab RxNorm: 940816 1 Tablet(s) PO QD No Start Date Inactive Lantus Solostar U-100 Insulin 100 unit/mL (3 mL) subcu taneous pen RxNorm: 584781 36 Unit(s) SQ QAM No Start Date 12/24/2017 Inactive Miacalcin 200 unit/Actuation Nasal [place] Aerosol RxNorm: 261 204 1 [place] NASAL QD Alternate nostrils each day No Start Date 04/05/2010 Inactive Amitriptyline 150 mg Tab RxNorm: 887960 1 Tablet(s) PO QHS No Start Date 01/04/2010 Inactive Bystolic 5 mg tablet RxNorm: 978221 1 Tablet(s) PO QD No Start Date 0 08/13/2012 Inactive Aricept 10 mg Tab RxNorm: 088243 1 Tablet(s) PO QD No Start Date 11/03 Inactive Lantus Solostar U-100 Insulin 100 unit/mL (3 mL) subcu taneous pen RxNorm: 548595 50 Unit(s) SQ QAM No Start Date 08/27/2018 Inactive albuterol sulfate 2.5 mg/3 mL (0.083 %) Neb Solution RxNorm: 856042 1 Unit Dose INH QID as needed No Start Date 08/23/2015 Inactive Symbicort 160 mcg-4.5 mcg/actuation HFA Aerosol Inhaler RxNo rm: 5438461 2 Puff(s) INH BID No Start Date 12/03/2011 Inactive Savella 50 mg Tab RxNorm: 547029 1 Tablet(s) PO BID No Start Date 04/2010 Inactive amitriptyline 100 mg Tab RxNorm: 326409 1 1/2 Tablet(s) PO QHS No S tart Date 06/19/2011 Inactive nystatin 100,000 unit/g Topical Cream RxNorm: 787085 Ap plication TOP BID to rash for 2-4 weeks No Start Date 01/14/2011 Inactive Trelegy Ellipta 100 mcg-62.5 mcg-25 mcg powder for inhalatio n RxNorm: 7709923 1 Puff(s) INH QD No Start Date 12/16/2017 Inactive Lyrica 150 mg capsule RxNorm: 553498 1 Capsule(s) PO QHS No Start D ate 12/04/2015 Inactive sennosides 8.6 mg tablet RxNorm: 688746 1 Tablet(s) PO BID No Start Date 09/07/2018 Inactive metformin ER 500 mg tablet,extended release 24 hr RxNorm: 86 0975 1 Tablet(s) PO QD No Start Date 10/22/2017 Inactive Fish Oil 1,000 mg Cap RxNorm: 1 Capsule(s) PO QD No Start Date 06/2011 Inactive Zyrtec 10 mg Tab RxNorm: 1275371 1 Tablet(s) PO QD No Start Date 07/03 Inactive albuterol sulfate HFA 90 mcg/actuation aerosol inhaler RxNor m: 4597272 2 Puff(s) INH Q4H as needed for cough No Start Date 09/30/2013 Inactive trazodone 150 mg tablet RxNorm: 056591 1 Tablet(s) PO QHS No Start Date 07/21/2012 Inactive Spiriva with HandiHaler 18 mcg & inhalation capsules RxNorm: 484320 1 Capsule(s) INH QD No Start Date 04/05/2013 Inactive Coreg 3.125 mg Tab RxNorm: 306871 1 Tablet(s) PO BID No Start Date Inactive Phenergan 25 mg Tab RxNorm: 250722 Tablet(s) PO PRN MIGRAINE No Sta rt Date 11/21/2009 Inactive Vitamin D 50,000 unit Cap RxNorm: 8287018 1 Capsule(s) PO QW No Sta rt Date 03/07/2011 Inactive Januvia 100 mg tablet RxNorm: 041073 1 Tablet(s) PO QD No Start Date 10/25/2015 Inactive Eliquis 5 mg tablet RxNorm: 3789701 1 Tablet(s) PO BID No Start Date 08/19/2018 Inactive Advair Diskus 500 mcg-50 mcg/Dose for Inhalation RxNorm: 799428 1 INH BID No Start Date 07/21/2012 Inactive Vitamin D3 5,000 unit tablet RxNorm: 360303 1 Tablet(s) PO QD No St art Date 07/18/2017 Inactive Amaryl 2 mg tablet RxNorm: 066602 1 Tablet(s) PO QD No Start Date 06/2015 Inactive Actos 30 mg tablet RxNorm: 026865 1 Tablet(s) PO QD No Start Date Inactive promethazine 25 mg tablet RxNorm: 504717 1 Tablet(s) PO Q4H prn N/V No Start Date 07/21/2012 Inactive ProAir HFA 90 mcg/actuation Aerosol Inhaler RxNorm: 969657 2 Puff(s) INH Q4H prn dyspnea No Start Date 07/21/2012 Inactive Dexilant 60 mg Capsule RxNorm: 009703 1 Capsule(s) PO QD No Start D ate 01/27/2012 Inactive Lantus Solostar U-100 Insulin 100 unit/mL (3 mL) subcu taneous pen RxNorm: 148825 38 Unit(s) SQ QAM No Start Date 05/20/2018 Inactive Valium 10 mg Tab RxNorm: 258922 1 Tablet(s) PO QHS AND PRN No Start Date 10/24/2009 Inactive ZOFRAN ODT 8 mg disintegrating tablet RxNorm: 816162 1 Tablet(s ) PO Q6H No Start [...] Code Item Item Code Result Date S vice Location MICROALBUMIN URINE RANDOM 31209 MICRL MG/L 14.9 MG/L Unknown MICROALBUMIN URINE RANDOM 41654 XM.ALB/CRE 6.1 MG/GCR Unknown MICROALBUMIN URINE RANDOM 29340 CREAT MG/D 243 MG/DL Unknown MICROALBUMIN URINE RANDOM 36496 CRE/100 2.43 G/L 03/05 Unknown PROTEIN/CREAT URINE WITH RATIO 41811|64629 PROT R U 14 MG/D L 04/01/2014 Unknown PROTEIN/CREAT URINE WITH RATIO 70752|51411 CREAT R U 254 MG/ DL 04/01/2014 Unknown PROTEIN/CREAT URINE WITH RATIO 05169|71799 XRATIO P/C 55 MG/ G 04/01/2014 Unknown URINALYSIS 13680 PROTEIN UR NEG 04/28/2010 Unknown URINALYSIS 54938 HEMGLBN UR NEG 04/28/2010 Unknown URINALYSIS 56641 GLUCOSE UR NEG 04/28/2010 Unknown URINALYSIS 65773 KETONES UR NEG 04/28/2010 Unknown URINALYSIS 43240 PH U 5.5 04/28/2010 Unknown URINALYSIS 92211 SP GR U 1.025 04/28/2010 Unknown URINALYSIS 81959 BILRUBN UR NEG 04/28/2010 Unknown URINALYSIS 05057 LEUKO UR 2+ 04/28/2010 Unknown URINALYSIS 47670 NITRITE UR NEG 04/28/2010 Unknown MICR CUL? [id number] WBC/HPF 6-10 04/28/2010 Unknown MICR CUL? [id number] RBC/HPF 0-5 04/28/2010 Unknown MICR CUL? [id number] HYAL CAST 16-25 04/28/2010 Unknown MICR CUL? [id number] SP TO YOLIE? NO 04/28/2010 Unknown MICR CUL? [id number] APPEAR UR NORMAL 04/28/2010 Unknown MICR CUL? [id number] SQ EPI/LPF FEW 04/28/2010 Unknown Procedures Procedure Codes Date URINALYSIS NONAUTO W/O SCOPE CPT-4: 42403 04/16/2019 URINE CULTURE/ COLONY COUNT CPT-4: 77967 04/16/2019 CEFTRIAXONE SODIUM INJECTION CPT-4: J0696 04/16/2019 THER/PROPH/DIAG INJ SC/IM CPT-4: 37144 04/16/2019 DRAIN/INJECT JOINT/BURSA CPT-4: 45592 01/22/2019 TRIAMCINOLONE ACET INJ NOS CPT-4: J3301 01/22/2019 DEXAMETHASONE SODIUM PHOS CPT-4: J1100 01/22/2019 URINE CULTURE/ COLONY COUNT CPT-4: 53052 01/07/2019 URINALYSIS NONAUTO W/O SCOPE CPT-4: 75880 01/07/2019 CEFTRIAXONE SODIUM INJECTION CPT-4: J0696 01/07/2019 THER/PROPH/DIAG INJ SC/IM CPT-4: 69491 01/07/2019 FLU VACC PRSV FREE INC ANTIG 65 AND OLDER CPT-4: 53247 12/24/2018 FLU VACC PRSV FREE INC ANTIG 65 AND OLDER CPT-4: 43106 12/24/2018 ADMIN INFLUENZA VIRUS VAC CPT-4: G0008 12/24/2018 THER/PROPH/DIAG INJ SC/IM CPT-4: 61701 11/04/2018 KETOROLAC TROMETHAMINE INJ CPT-4: J1885 11/04/2018 PROMETHAZINE HCL INJECTION CPT-4: J2550 11/04/2018 PPPS, subseq visit CPT-4: G0439 09/18/2018 THER/PROPH/DIAG INJ SC/IM CPT-4: 47081 04/01/2018 KETOROLAC TROMETHAMINE INJ CPT-4: J1885 04/01/2018 PROMETHAZINE HCL INJECTION CPT-4: J2550 04/01/2018 URINE CULTURE/ COLONY COUNT CPT-4: 78532 03/17/2018 URINALYSIS NONAUTO W/O SCOPE CPT-4: 64931 03/17/2018 FLU VACC PRSV FREE INC ANTIG 65 AND OLDER CPT-4: 16202 12/17/2017 PNEUMOCOCCAL VACC 23 RANDALL IM CPT-4: 29520 12/17/2017 ADMIN INFLUENZA VIRUS VAC CPT-4: G0008 12/17/2017 ADMIN PNEUMOCOCCAL VACCINE CPT-4: G0009 12/17/2017 PPPS, subseq visit CPT-4: G0439 09/17/2017 THER/PROPH/DIAG INJ SC/IM CPT-4: 41551 08/26/2017 KETOROLAC TROMETHAMINE INJ CPT-4: J1885 08/26/2017 PROMETHAZINE HCL INJECTION CPT-4: J2550 08/26/2017 URINALYSIS NONAUTO W/O SCOPE CPT-4: 05032 07/19/2017 URINE CULTURE/ COLONY COUNT CPT-4: 75519 07/19/2017 CEFTRIAXONE SODIUM INJECTION CPT-4: J0696 07/19/2017 THER/PROPH/DIAG INJ SC/IM CPT-4: 28457 07/19/2017 THER/PROPH/DIAG INJ SC/IM CPT-4: 58813 07/19/2017 TRIAMCINOLONE ACET INJ NOS CPT-4: J3301 07/19/2017 PRESCRIP TRANSMIT VIA ERX SY CPT-4: G8553 05/07/2017 PRESCRIP TRANSMIT VIA ERX SY CPT-4: G8553 02/22/2017 PRESCRIP TRANSMIT VIA ERX SY CPT-4: G8553 01/23/2017 FLU VACC PRSV FREE INC ANTIG 65 AND OLDER CPT-4: 09773 12/20/2016 PNEUMOCOCCAL VACC 13 RANDALL IM CPT-4: 12597 12/20/2016 ADMIN INFLUENZA VIRUS VAC CPT-4: G0008 12/20/2016 ADMIN PNEUMOCOCCAL VACCINE CPT-4: G0009 12/20/2016 URINALYSIS NONAUTO W/O SCOPE CPT-4: 94654 10/08/2016 URINE CULTURE/ COLONY COUNT CPT-4: 06177 10/08/2016 PRESCRIP TRANSMIT VIA ERX SY CPT-4: G8553 10/08/2016 PRESCRIP TRANSMIT VIA ERX SY CPT-4: G8553 09/19/2016 PRESCRIP TRANSMIT VIA ERX SY CPT-4: G8553 08/20/2016 PRESCRIP TRANSMIT VIA ERX SY CPT-4: G8553 02/29/2016 KETOROLAC TROMETHAMINE INJ CPT-4: J1885 02/02/2016 THER/PROPH/DIAG INJ SC/IM CPT-4: 26705 02/02/2016 PROMETHAZINE HCL INJECTION CPT-4: J2550 02/02/2016 PRESCRIP TRANSMIT VIA ERX SY CPT-4: G8553 02/02/2016 FLU VACC PRSV FREE INC ANTIG 65 AND OLDER CPT-4: 87465 01/05/2016 PPPS, subseq visit CPT-4: G0439 01/05/2016 ADMIN INFLUENZA VIRUS VAC CPT-4: G0008 01/05/2016 URINE CULTURE/ COLONY COUNT CPT-4: 51201 12/05/2015 URINALYSIS NONAUTO W/O SCOPE CPT-4: 28584 12/05/2015 PRESCRIP TRANSMIT VIA ERX SY CPT-4: G8553 12/05/2015 PRESCRIP TRANSMIT VIA ERX SY CPT-4: G8553 10/26/2015 URINALYSIS NONAUTO W/O SCOPE CPT-4: 79388 10/05/2015 URINE CULTURE/ COLONY COUNT CPT-4: 11804 10/05/2015 PRESCRIP TRANSMIT VIA ERX SY CPT-4: G8553 10/05/2015 SERVICE REQUIRED FOR PMD CPT-4: G0372 09/15/2015 PRESCRIP TRANSMIT VIA ERX SY CPT-4: G8553 09/15/2015 SPECIAL REPORTS OR FORMS CPT-4: 53166 08/25/2015 PRESCRIP TRANSMIT VIA ERX SY CPT-4: G8553 07/05/2015 URINALYSIS NONAUTO W/O SCOPE CPT-4: 35720 03/30/2015 ASSAY, GLUCOSE, BLOOD QUANT CPT-4: 20942 03/30/2015 URINE CULTURE/ COLONY COUNT CPT-4: 44138 03/30/2015 PRESCRIP TRANSMIT VIA ERX SY CPT-4: G8553 03/30/2015 PRESCRIP TRANSMIT VIA ERX SY CPT-4: G8553 02/03/2015 FLU VACC PRSV FREE INC ANTIG 65 AND OLDER CPT-4: 21383 12/29/2014 ADMIN INFLUENZA VIRUS VAC CPT-4: G0008 12/29/2014 PRESCRIP TRANSMIT VIA ERX SY CPT-4: G8553 12/29/2014 PRESCRIP TRANSMIT VIA ERX SY CPT-4: G8553 09/02/2014 PROTEIN/CREAT URINE WITH RATIO CPT-4: 33666|[id number] 5 MICROALBUMIN QUANTITATIVE CPT-4: 79165 04/01/2014 PRESCRIP TRANSMIT VIA ERX SY CPT-4: G8553 03/16/2014 PRESCRIP TRANSMIT VIA ERX SY CPT-4: G8553 03/09/2014 THER/PROPH/DIAG INJ SC/IM CPT-4: 42649 03/01/2014 TRIAMCINOLONE ACET INJ NOS CPT-4: J3301 03/01/2014 PRESCRIP TRANSMIT VIA ERX SY CPT-4: G8553 02/09/2014 URINE CULTURE/ COLONY COUNT CPT-4: 72250 10/30/2013 URINALYSIS NONAUTO W/O SCOPE CPT-4: 76455 10/21/2013 URINE CULTURE/ COLONY COUNT CPT-4: 83501 10/21/2013 DESTRUCT PREMALG LESION (Cryosurgery) CPT-4: 77177 PRESCRIP TRANSMIT VIA ERX SY CPT-4: G8553 10/05/2013 URINALYSIS NONAUTO W/O SCOPE CPT-4: 78795 08/04/2013 URINE CULTURE/ COLONY COUNT CPT-4: 31629 08/04/2013 PRESCRIP TRANSMIT VIA ERX SY CPT-4: G8553 08/04/2013 THER/PROPH/DIAG INJ SC/IM CPT-4: 67977 07/13/2013 TRIAMCINOLONE ACET INJ NOS CPT-4: J3301 07/13/2013 PRESCRIP TRANSMIT VIA ERX SY CPT-4: G8553 05/27/2013 URINALYSIS NONAUTO W/O SCOPE CPT-4: 50136 05/25/2013 URINE CULTURE/ COLONY COUNT CPT-4: 05858 05/25/2013 THER/PROPH/DIAG INJ SC/IM CPT-4: 77240 05/04/2013 VITAMIN B12 INJECTION CPT-4: J3420 05/04/2013 THER/PROPH/DIAG INJ SC/IM CPT-4: 09377 04/17/2013 VITAMIN B12 INJECTION CPT-4: J3420 04/17/2013 THER/PROPH/DIAG INJ SC/IM CPT-4: 11203 04/17/2013 METHYLPREDNISOLONE 40 MG INJ CPT-4: J1030 04/17/2013 TRIAMCINOLONE ACET INJ NOS CPT-4: J3301 04/17/2013 URINALYSIS NONAUTO W/O SCOPE CPT-4: 53353 04/06/2013 URINE CULTURE/ COLONY COUNT CPT-4: 71902 04/06/2013 PRESCRIP TRANSMIT VIA ERX SY CPT-4: G8553 04/06/2013 KETOROLAC TROMETHAMINE INJ CPT-4: J1885 06/25/2012 PROMETHAZINE HCL INJECTION CPT-4: J2550 06/25/2012 THER/PROPH/DIAG INJ SC/IM CPT-4: 43739 06/25/2012 THER/PROPH/DIAG INJ SC/IM CPT-4: 61298 06/24/2012 METHYLPREDNISOLONE 40 MG INJ CPT-4: J1030 06/24/2012 TRIAMCINOLONE ACET INJ NOS CPT-4: J3301 06/24/2012 URINE CULTURE/ COLONY COUNT CPT-4: 07965 06/24/2012 THER/PROPH/DIAG INJ SC/IM CPT-4: 82877 05/20/2012 KETOROLAC TROMETHAMINE INJ CPT-4: J1885 05/20/2012 THER/PROPH/DIAG INJ SC/IM CPT-4: 31426 05/20/2012 PROMETHAZINE HCL INJECTION CPT-4: J2550 05/20/2012 DRAIN/INJECT JOINT/BURSA CPT-4: 38486 02/13/2012 METHYLPREDNISOLONE 40 MG INJ CPT-4: J1030 02/13/2012 TRIAMCINOLONE ACET INJ NOS CPT-4: J3301 02/13/2012 THER/PROPH/DIAG INJ SC/IM CPT-4: 93275 11/14/2011 METHYLPREDNISOLONE 40 MG INJ CPT-4: J1030 11/14/2011 TRIAMCINOLONE ACET INJ NOS CPT-4: J3301 11/14/2011 THER/PROPH/DIAG INJ SC/IM CPT-4: 78934 09/12/2011 KETOROLAC TROMETHAMINE INJ CPT-4: J1885 09/12/2011 THER/PROPH/DIAG INJ SC/IM CPT-4: 43489 08/09/2011 METHYLPREDNISOLONE 40 MG INJ CPT-4: J1030 08/09/2011 TRIAMCINOLONE ACET INJ NOS CPT-4: J3301 08/09/2011 URINE CULTURE/ COLONY COUNT CPT-4: 36526 07/03/2011 URINE CULTURE/ COLONY COUNT CPT-4: 23963 06/04/2011 THER/PROPH/DIAG INJ SC/IM CPT-4: 79282 05/03/2011 METHYLPREDNISOLONE 40 MG INJ CPT-4: J1030 05/03/2011 TRIAMCINOLONE ACET INJ NOS CPT-4: J3301 05/03/2011 URINALYSIS NONAUTO W/O SCOPE CPT-4: 59705 01/24/2011 URINE CULTURE/ COLONY COUNT CPT-4: 95834 01/24/2011 FLUZONE, 5ML (Medicare) CPT-4: Q2038 01/02/2011 ADMIN INFLUENZA VIRUS VAC CPT-4: G0008 01/02/2011 ASSAY, GLUCOSE, BLOOD QUANT CPT-4: 30590 12/07/2010 URINE CULTURE/ COLONY COUNT CPT-4: 24890 11/02/2010 THER/PROPH/DIAG INJ SC/IM CPT-4: 24405 10/18/2010 METHYLPREDNISOLONE 40 MG INJ CPT-4: J1030 10/18/2010 TRIAMCINOLONE ACET INJ NOS CPT-4: J3301 10/18/2010 TRIAMCINOLONE ACET INJ NOS CPT-4: J3301 05/11/2010 METHYLPREDNISOLONE 40 MG INJ CPT-4: J1030 05/11/2010 THER/PROPH/DIAG INJ SC/IM CPT-4: 21667 05/11/2010 TRIAMCINOLONE ACET INJ NOS CPT-4: J3301 02/09/2010 METHYLPREDNISOLONE 40 MG INJ CPT-4: J1030 02/09/2010 THER/PROPH/DIAG INJ SC/IM CPT-4: 07842 02/09/2010 SERVICE REQUIRED FOR PMD CPT-4: G0372 02/09/2010 FLU VACCINE 3 YRS & > IM UP 64 CPT-4: 96445 0 PNEUMOCOCCAL VACC 23 RANDALL IM CPT-4: 78875 12/07/2009 ADMIN INFLUENZA VIRUS VAC CPT-4: G0008 12/07/2009 ADMIN PNEUMOCOCCAL VACCINE CPT-4: G0009 12/07/2009 TRIAMCINOLONE ACET INJ NOS CPT-4: J3301 05/26/2009 THER/PROPH/DIAG INJ SC/IM CPT-4: 70551 05/26/2009 METHYLPREDNISOLONE 80 MG INJ CPT-4: J1040 05/26/2009 Vital Signs Date Vital 05/13/2019 Blood Pressure 1: 142/82 Code: 8480-6 [...] 1: 114/72 Code: 8480-6 BMI: 37.8 Code: 14946-7 Heart Rate 1: 72 bpm Height: 5'3" [...] 1: 106/68 Code: 8480-6 BMI: 35.7 Code: 17301-7 Heart Rate 1: 72 bpm Height: 5'4" Respiratory Rate: 20 bpm SpO2: 98% Tempera ture: 36.7 (C) / 98.0 (F) Weight: 208 lbs 04/16/2018 Blood Pressure 1: 132/82 Code: 8480-6 BMI: 37.9 Code: 66963-4 Heart Rate 1: 72 bpm Height: 5'4" Respiratory Rate: 20 bpm SpO2: 96% Tempera ture: 37.1 (C) / 98.8 (F) Weight: 221 lbs 04/01/2018 Blood Pressure 1: 150/90 Code: 8480-6 Heart Rate 1: 72 bpm Respiratory Rate: 22 bpm SpO2: 95% Temperature: 36.4 (C) / 97.6 (F) We ight: 216 lbs 03/06/2018 Blood Pressure 1: 126/78 Code: 8480-6 BMI: 37.4 Code: 62269-1 Heart Rate 1: 68 bpm Height: 5'4" [...] ight: 222 lbs 12/25/2017 BMI: 37.8 Code: 95429-5 Heart Rate 1: 76 bpm Height: 5 '4" Respiratory Rate: 20 bpm SpO2: 96% Temperature: 37.3 (C) / 99.2 (F) Weight: 220 lbs 12/17/2017 Blood Pressure 1: 132/78 Code: 8480-6 BMI: 37.2 Code: 51964-8 Heart Rate 1: 88 bpm Height: 5'4" Respiratory Rate: 20 bpm SpO2: 96% Tempera ture: 37.3 (C) / 99.2 (F) Weight: 217 lbs 10/30/2017 Blood Pressure 1: 114/68 Code: 8480-6 BMI: 36.4 Code: 01559-4 Heart Rate 1: 72 bpm Height: 5'4" Respiratory Rate: 22 bpm SpO2: 96% Tempera ture: 36.8 (C) / 98.2 (F) Weight: 212 lbs 10/23/2017 Blood Pressure 1: 124/78 Code: 8480-6 Heart Rate 1: 72 bpm Respiratory Rate: 24 bpm SpO2: 94% Temperature: 36.6 (C) / 97.9 (F) We ight: 212 lbs 09/17/2017 Blood Pressure 1: 128/82 Code: 8480-6 BMI: 37.4 Code: 65781-8 Heart Rate 1: 72 bpm Height: 5'4" Respiratory Rate: 20 bpm SpO2: 96% Tempera ture: 37.0 (C) / 98.6 (F) Weight: 218 lbs 07/19/2017 Blood Pressure 1: 136/84 Code: 8480-6 BMI: 36.6 Code: 70818-6 Heart Rate 1: 88 bpm Height: 5'4" Respiratory Rate: 20 bpm SpO2: 97% Tempera ture: 36.7 (C) / 98.0 (F) Weight: 213 lbs 05/29/2017 Blood Pressure 1: 136/82 Code: 8480-6 BMI: 36.7 Code: 81870-0 Heart Rate 1: 72 bpm Height: 5'4" Respiratory Rate: 20 bpm SpO2: 97% Tempera ture: 36.9 (C) / 98.4 (F) Weight: 214 lbs 05/07/2017 Blood Pressure 1: 122/80 Code: 8480-6 BMI: 37.1 Code: 26066-7 Heart Rate 1: 80 bpm Height: 5'4" Respiratory Rate: 24 bpm SpO2: 96% Tempera ture: 36.1 (C) / 97.0 (F) Weight: 216 lbs 03/18/2017 BMI: 36.7 Code: 64828-1 Heart Rate 1: 80 bpm Height: 5 '4" Respiratory Rate: 22 bpm SpO2: 95% Temperature: 36.9 (C) / 98.4 (F) Weight: 214 lbs 02/27/2017 Blood Pressure 1: 146/94 Code: 8480-6 BMI: 36.6 Code: 67071-8 Heart Rate 1: 76 bpm Height: 5'4" Respiratory Rate: 22 bpm SpO2: 97% Tempera ture: 36.6 (C) / 97.9 (F) Weight: 213 lbs 02/22/2017 Blood Pressure 1: 126/90 Code: 8480-6 BMI: 36.4 Code: 77796-1 Heart Rate 1: 84 bpm Height: 5'4" Respiratory Rate: 22 bpm SpO2: 95% Tempera ture: 36.9 (C) / 98.4 (F) Weight: 212 lbs 01/23/2017 Blood Pressure 1: 146/82 Code: 8480-6 BMI: 37.6 Code: 69904-0 Heart Rate 1: 96 bpm Height: 5'4" Respiratory Rate: 20 bpm SpO2: 96% Tempera ture: 36.9 (C) / 98.4 (F) Weight: 219 lbs 12/20/2016 Blood Pressure 1: 126/70 Code: 8480-6 BMI: 37.2 Code: 65182-3 Heart Rate 1: 76 bpm Height: 5'4" Respiratory Rate: 22 bpm SpO2: 95% Tempera ture: 36.6 (C) / 97.8 (F) Weight: 217 lbs 10/08/2016 Blood Pressure 1: 128/82 Code: 8480-6 BMI: 36.9 Code: 42354-6 Heart Rate 1: 76 bpm Height: 5'4" Respiratory Rate: 20 bpm SpO2: 95% Tempera ture: 37.0 (C) / 98.6 (F) Weight: 215 lbs 09/19/2016 Blood Pressure 1: 144/78 Code: 8480-6 BMI: 37.8 Code: 00699-1 Heart Rate 1: 76 bpm Height: 5'4" Respiratory Rate: 22 bpm SpO2: 95% Tempera ture: 37.0 (C) / 98.6 (F) Weight: 220 lbs 08/20/2016 Blood Pressure 1: 140/86 Code: 8480-6 BMI: 37.4 Code: 70375-2 Heart Rate 1: 80 bpm Height: 5'4" Respiratory Rate: 20 bpm SpO2: 95% Tempera ture: 36.9 (C) / 98.4 (F) Weight: 218 lbs 06/19/2016 Blood Pressure 1: 124/78 Code: 8480-6 BMI: 37.8 Code: 66392-9 Heart Rate 1: 74 bpm Height: 5'4" Respiratory Rate: 24 bpm SpO2: 96% Tempera ture: 36.9 (C) / 98.4 (F) Weight: 220 lbs 06/04/2016 Blood Pressure 1: 124 Code: 8480-6 BMI: 38.8 Code: 93708-0 Heart Rate 1: 72 bpm Height: 5'4" Respiratory Rate: 24 bpm SpO2: 95% Tempera ture: 36.8 (C) / 98.2 (F) Weight: 226 lbs 05/02/2016 Blood Pressure 1: 136/90 Code: 8480-6 BMI: 37.6 Code: 47627-4 Heart Rate 1: 72 bpm Height: 5'4" Respiratory Rate: 24 bpm SpO2: 96% Tempera ture: 36.9 (C) / 98.4 (F) Weight: 219 lbs 04/03/2016 Blood Pressure 1: 126/78 Code: 8480-6 BMI: 38.1 Code: 38232-2 Heart Rate 1: 72 bpm Height: 5'4" Respiratory Rate: 22 bpm SpO2: 94% Tempera ture: 36.9 (C) / 98.4 (F) Weight: 222 lbs 02/29/2016 Blood Pressure 1: 132/78 Code: 8480-6 Heart Rate 1: 78 bpm Height: Respiratory Rate: 24 bpm SpO2: 95% Temperature: 36.4 (C) / 97.6 (F) We ight: 02/02/2016 Blood Pressure 1: 124/78 Code: 8480-6 BMI: 37.6 Code: 56551-1 Heart Rate 1: 76 bpm Height: 5'4" Respiratory Rate: 20 bpm SpO2: 95% Tempera ture: 36.8 (C) / 98.2 (F) Weight: 219 lbs 01/05/2016 Blood Pressure 1: 126/70 Code: 8480-6 BMI: 37.1 Code: 63541-8 Heart Rate 1: 76 bpm Height: 5'4" Respiratory Rate: 20 bpm Temperature: 36 .6 (C) / 97.8 (F) Weight: 216 lbs 12/05/2015 Blood Pressure 1: 126/72 Code: 8480-6 BMI: 36.9 Code: 70157-5 Heart Rate 1: 92 bpm Height: 5'4" Respiratory Rate: 20 bpm Temperature: 36 .7 (C) / 98.1 (F) Weight: 215 lbs 10/26/2015 Blood Pressure 1: 142/80 Code: 8480-6 BMI: 36.4 Code: 64026-4 Heart Rate 1: 82 bpm Height: 5'4" Respiratory Rate: 24 bpm SpO2: 92% Tempera ture: 35.9 (C) / 96.7 (F) Weight: 212 lbs 10/05/2015 Blood Pressure 1: 136/82 Code: 8480-6 Heart Rate 1: 80 bpm Respiratory Rate: 18 bpm SpO2: 98% Temperature: 35.7 (C) / 96.3 (F) We ight: 214 lbs 09/15/2015 Blood Pressure 1: 116/80 Code: 8480-6 BMI: 34.6 Code: 07732-6 Heart Rate 1: 76 bpm Height: 5'6" Respiratory Rate: 20 bpm Temperature: 36 .6 (C) / 97.9 (F) Weight: 211 lbs 08/24/2015 Blood Pressure 1: 124/80 Code: 8480-6 BMI: 34.1 Code: 34946-3 Heart Rate 1: 68 bpm Height: 5'6" Respiratory Rate: 20 bpm Temperature: 36 .8 (C) / 98.3 (F) Weight: 208 lbs 07/05/2015 Blood Pressure 1: 114/78 Code: 8480-6 BMI: 33.9 Code: 23430-7 Heart Rate 1: 80 bpm Height: 5'6" Respiratory Rate: 20 bpm Temperature: 36 .6 (C) / 97.9 (F) Weight: 207 lbs 06/06/2015 Blood Pressure 1: 122/78 Code: 8480-6 BMI: 34.1 Code: 02745-8 Heart Rate 1: 76 bpm Height: 5'6" Respiratory Rate: 24 bpm SpO2: 96% Tempera ture: 36.4 (C) / 97.6 (F) Weight: 208 lbs 05/23/2015 Blood Pressure 1: 124/78 Code: 8480-6 Heart Rate 1: 76 bpm Respiratory Rate: 24 bpm SpO2: 93% Temperature: 36.8 (C) / 98.2 (F) We ight: 212 lbs 05/05/2015 Blood Pressure 1: 136/80 Code: 8480-6 BMI: 35.4 Code: 06811-8 Heart Rate 1: 76 bpm Height: 5'6" Respiratory Rate: 28 bpm Temperature: 37 .0 (C) / 98.6 (F) Weight: 216 lbs 03/30/2015 Blood Pressure 1: 132/86 Code: 8480-6 BMI: 35.2 Code: 52163-0 Heart Rate 1: 84 bpm Height: 5'6" Respiratory Rate: 24 bpm Temperature: 36 .7 (C) / 98.0 (F) Weight: 215 lbs 02/03/2015 Blood Pressure 1: 122/74 Code: 8480-6 BMI: 35.7 Code: 88869-4 Heart Rate 1: 84 bpm Height: 5'6" Respiratory Rate: 20 bpm Temperature: 36 .9 (C) / 98.5 (F) Weight: 218 lbs 12/29/2014 Blood Pressure 1: 132/80 Code: 8480-6 BMI: 35.1 Code: 13909-8 Heart Rate 1: 80 bpm Height: 5'6" Respiratory Rate: 20 bpm Temperature: 36 .6 (C) / 97.8 (F) Weight: 214 lbs 09/02/2014 Blood Pressure 1: 128/92 Code: 8480-6 BMI: 34.7 Code: 96907-7 Heart Rate 1: 84 bpm Height: 5'6" Respiratory Rate: 26 bpm Temperature: 36 .8 (C) / 98.2 (F) Weight: 212 lbs 08/25/2014 Blood Pressure 1: 124/80 Code: 8480-6 BMI: 34.7 Code: 24914-7 Heart Rate 1: 78 bpm Height: 5'6" Respiratory Rate: 22 bpm SpO2: 97% Tempera ture: 36.6 (C) / 97.8 (F) Weight: 212 lbs 04/01/2014 Blood Pressure 1: 142/84 Code: 8480-6 BMI: 34.4 Code: 64660-5 Heart Rate 1: 74 bpm Height: 5'5" Respiratory Rate: 20 bpm Temperature: 36 .4 (C) / 97.6 (F) Weight: 207 lbs 03/16/2014 Blood Pressure 1: 142/90 Code: 8480-6 BMI: 34.6 Code: 81613-3 Heart Rate 1: 76 bpm Height: 5'5" Respiratory Rate: 24 bpm Temperature: 36 .5 (C) / 97.7 (F) Weight: 208 lbs 03/09/2014 Blood Pressure 1: 116/70 Code: 8480-6 BMI: 35.3 Code: 54389-6 Heart Rate 1: 72 bpm Height: 5'5" [...] 1: 128/86 Code: 8480-6 BMI: 34.3 Code: 81919-9 Heart Rate 1: 84 bpm Height: 5'5" Respiratory Rate: 20 bpm Temperature: 36 .7 (C) / 98.0 (F) Weight: 206 lbs 12/23/2013 Blood Pressure 1: 122/70 Code: 8480-6 BMI: 34.3 Code: 45880-5 Heart Rate 1: 68 bpm Height: 5'5" Respiratory Rate: 20 bpm Temperature: 36 .8 (C) / 98.2 (F) Weight: 206 lbs 10/05/2013 Blood Pressure 1: 118/76 Code: 8480-6 BMI: 34.1 Code: 13546-6 Heart Rate 1: 68 bpm Height: 5'5" Respiratory Rate: 20 bpm SpO2: 98% Tempera ture: 36.6 (C) / 97.9 (F) Weight: 205 lbs 08/04/2013 Blood Pressure 1: 126/82 Code: 8480-6 BMI: 33.3 Code: 40213-7 Heart Rate 1: 76 bpm Height: 5'5" Respiratory Rate: 20 bpm Temperature: 36 .8 (C) / 98.2 (F) Weight: 200 lbs 07/03/2013 Blood Pressure 1: 124/82 Code: 8480-6 BMI: 33.3 Code: 77419-3 Heart Rate 1: 72 bpm Height: 5'5" Respiratory Rate: 22 bpm Temperature: 36 .1 (C) / 97.0 (F) Weight: 200 lbs 05/27/2013 Blood Pressure 1: 126/82 Code: 8480-6 Heart Rate 1: 74 bpm Respiratory Rate: 20 bpm Temperature: 36.0 (C) / 96.8 (F) Weight: 199 lbs 04/06/2013 Blood Pressure 1: 118/80 Code: 8480-6 BMI: 35.2 Code: 49352-0 Heart Rate 1: 80 bpm Height: 5'4" Respiratory Rate: 20 bpm Temperature: 37 .4 (C) / 99.3 (F) Weight: 205 lbs 11/10/2012 Blood Pressure 1: 128/82 Code: 8480-6 Heart Rate 1: 84 bpm Respiratory Rate: 20 bpm Temperature: 36.7 (C) / 98.0 (F) Weight: 199 lbs 09/02/2012 Blood Pressure 1: 116/82 Code: 8480-6 BMI: 34.2 Code: 72009-3 Heart Rate 1: 88 bpm Height: 5'4" Respiratory Rate: 22 bpm Temperature: 36 .6 (C) / 97.8 (F) Weight: 199 lbs 08/04/2012 Blood Pressure 1: 128/74 Code: 8480-6 BMI: 34.0 Code: 75567-7 Heart Rate 1: 92 bpm Height: 5'4" Respiratory Rate: 20 bpm Temperature: 36 .4 (C) / 97.5 (F) Weight: 198 lbs 07/21/2012 Blood Pressure 1: 124/86 Code: 8480-6 Heart Rate 1: 116 bpm Respiratory Rate: 24 bpm Temperature: 36.8 (C) / 98.2 (F) 07/02/2012 Blood Pressure 1: 116/88 Code: 8480-6 BMI: 33.6 Code: 19222-6 Heart Rate 1: 76 bpm Height: 5'4" Respiratory Rate: 20 bpm Temperature: 36 .8 (C) / 98.3 (F) Weight: 196 lbs 06/24/2012 Blood Pressure 1: 124/80 Code: 8480-6 BMI: 34.3 Code: 98943-9 Heart Rate 1: 72 bpm Height: 5'4" SpO2: 96% Temperature: 36.3 (C) / 97.3 (F) Weight: 200 lbs 05/20/2012 Blood Pressure 1: 116/88 Code: 8480-6 BMI: 33.8 Code: 40519-0 Heart Rate 1: 80 bpm Height: 5'4" Respiratory Rate: 22 bpm Temperature: 36 .9 (C) / 98.4 (F) Weight: 197 lbs 05/08/2012 Blood Pressure 1: 128/86 Code: 8480-6 BMI: 33.8 Code: 64195-6 Heart Rate 1: 76 bpm Height: 5'4" Respiratory Rate: 26 bpm SpO2: 95% Tempera ture: 36.1 (C) / 97.0 (F) Weight: 197 lbs 04/22/2012 Blood Pressure 1: 106/64 Code: 8480-6 BMI: 33.8 Code: 16536-8 Heart Rate 1: 70 bpm Height: 5'4" Temperature: 36.1 (C) / 97.0 (F) Weight: 197 lbs 02/13/2012 Blood Pressure 1: 126/82 Code: 8480-6 BMI: 34.7 Code: 26119-7 Heart Rate 1: 64 bpm Height: 5'4" Respiratory Rate: 20 bpm Temperature: 36 .6 (C) / 97.8 (F) Weight: 202 lbs 01/28/2012 Blood Pressure 1: 116/80 Code: 8480-6 BMI: 34.7 Code: 52377-3 Heart Rate 1: 76 bpm Height: 5'4" Respiratory Rate: 20 bpm Temperature: 36 .8 (C) / 98.3 (F) Weight: 202 lbs 12/26/2011 Blood Pressure 1: 132/82 Code: 8480-6 BMI: 36.0 Code: 87855-7 Heart Rate 1: 68 bpm Height: 5'4" Respiratory Rate: 22 bpm Temperature: 36 .7 (C) / 98.0 (F) Weight: 210 lbs 11/14/2011 Blood Pressure 1: 124/80 Code: 8480-6 BMI: 36.4 Code: 58155-8 Heart Rate 1: 76 bpm Height: 5'4" Respiratory Rate: 20 bpm Temperature: 36 .8 (C) / 98.2 (F) Weight: 212 lbs 09/12/2011 Blood Pressure 1: 108/74 Code: 8480-6 BMI: 37.1 Code: 59777-4 Heart Rate 1: 72 bpm Height: 5'4" Respiratory Rate: 20 bpm Temperature: 37 .0 (C) / 98.6 (F) Weight: 216 lbs 08/15/2011 Blood Pressure 1: 122/80 Code: 8480-6 BMI: 36.9 Code: 95969-8 Heart Rate 1: 76 bpm Height: 5'4" Respiratory Rate: 20 bpm Temperature: 36 .2 (C) / 97.1 (F) Weight: 215 lbs 08/09/2011 Blood Pressure 1: 112/78 Code: 8480-6 BMI: 36.9 Code: 85433-1 Heart Rate 1: 68 bpm Height: 5'4" Respiratory Rate: 20 bpm Temperature: 36 .7 (C) / 98.0 (F) Weight: 215 lbs 07/03/2011 Blood Pressure 1: 140/94 Code: 8480-6 BMI: 36.2 Code: 29969-5 Heart Rate 1: 68 bpm Height: 5'4" Temperature: 36.0 (C) / 96.8 (F) Weight: 211 lbs 06/04/2011 Blood Pressure 1: 124/70 Code: 8480-6 BMI: 36.7 Code: 35705-3 Heart Rate 1: 68 bpm Height: 5'4" Respiratory Rate: 20 bpm Temperature: 36 .6 (C) / 97.9 (F) Weight: 214 lbs 05/03/2011 Blood Pressure 1: 130/76 Code: 8480-6 BMI: 36.4 Code: 70084-1 Heart Rate 1: 74 bpm Height: 5'5" Temperature: 36.2 (C) / 97.2 (F) Weight: 219 lbs 04/05/2011 Blood Pressure 1: 124/86 Code: 8480-6 BMI: 35.9 Code: 66506-4 Heart Rate 1: 76 bpm Height: 5'6" Respiratory Rate: 22 bpm Temperature: 36 .3 (C) / 97.3 (F) Weight: 219 lbs 03/08/2011 Blood Pressure 1: 112/78 Code: 8480-6 BMI: 35.1 Code: 40906-6 Heart Rate 1: 80 bpm Height: 5'6" Respiratory Rate: 26 bpm Temperature: 36 .9 (C) / 98.4 (F) Weight: 214 lbs 01/24/2011 Blood Pressure 1: 110/82 Code: 8480-6 BMI: 35.6 Code: 73289-9 Heart Rate 1: 80 bpm Height: 5'6" Temperature: 36.1 (C) / 97.0 (F) Weight: 217 lbs 01/02/2011 Blood Pressure 1: 106/72 Code: 8480-6 BMI: 35.6 Code: 78660-2 Heart Rate 1: 76 bpm Height: 5'6" [...] 1: 120/74 Code: 8480-6 BMI: 35.9 Code: 09775-1 Heart Rate 1: 72 bpm Height: 5'5" Temperature: 36.3 (C) / 97.4 (F) Weight: 216 lbs 09/19/2010 Blood Pressure 1: 124/80 Code: 8480-6 BMI: 35.4 Code: 09698-6 Heart Rate 1: 76 bpm Height: 5'5" [...] 1: 122/78 Code: 8480-6 BMI: 37.4 Code: 17717-1 Heart Rate 1: 84 bpm Height: 5'5" Weight: 225 lbs Functional Status No Functional Status data Reason For Visit Reason For Visit Effective Dates Notes fever 06/08/2019 fever 05/26/2019 dyspnea 05/13/2019 worsening. [...] 12/17/2017 follow up 10/30/2017 follow up 10/23/2017 [facility] fwup from [facility] Annual Checkup 09/17/2017 Wellness Physical fo r [...] up 06/04/2016 1mo fwup follow up 05/02/2016 [facility] fwup follow up 04/03/2016 dyspnea 02/29/2016 low grade 99s follow up 02/02/2016 ER fwup diabetes mellitus 01/05/2016 painful urination 12/05/2015 follow up 10/26/2015 ER visit from at [facility] for COPD Exacerbation follow up 10/05/2015 ER Visit gait abnormality 09/15/2015 Patient requesting kelly pineda paperwork to be filled out disturbances of thinking 08/24/2015 follow up 07/05/2015 4wk fwup follow up 06/06/2015 Hospital fwup cough 05/23/2015 follow up 05/05/2015 dyspnea 03/30/2015 [facility] needs new orde r for O2 abdominal pain 02/03/2015 cyst 12/29/2014 vs abscess follow up 09/02/2014 Hospital fw headache 08/25/2014 facial drooping follow up 04/01/2014 ER follow up 03/16/2014 1wk fwup follow up 03/09/2014 1mo fwup and bronchi tis fwup follow up 03/03/2014 2 day follow up 03/01/2014 ER follow up 02/09/2014 Hospital fw gastroesophageal reflux 12/23/2013 painful urination 10/30/2013 UTI [...] up 08/04/2012 2wk fwup follow up 07/21/2012 Hospital fw--[facility] an sore throat 07/02/2012 headache 06/25/2012 request [...] up 10/18/[address] Medrano last w [facility] ([place]), having increased allergy symptoms. Would like steroid [...] 1 month f/u follow up 12/07/2009 [facility], done with PT--finished about 2wks ago follow up 11/08/2009 2wk fwup follow up 10/24/2009 hosp fwup ~generic 07/25/2009 bilateral earlobe re dness/swelling, pain radiating into neck, refill Demerol ~generic 05/26/2009 FALLING A LOT, SAVEL LA NOT HELPING FIBROMYALGIA PAIN, LT HAND LACERATION-FELL INTO NAIL 05/25/09 Encounters Encounter Performer Location Codes Date () OFFICE/OUTPATIENT VISIT EST Diagnosis: Diarrhea[ICD10: R19.7] Diagnosis: Abdominal bloating[ICD10: R14.0] Belia Reid [facility] CPT- 4: 42181 06/08/2019 ([id number]) OFFICE/OUTPATIENT VISIT EST Diagnosis: Acute febrile illness[ICD10: R50.9] Diagnosis: Colitis[ICD10: K52.9] Belia Reid [facility] CPT-4: 52918 05/26/2019 ([id number]) OFFICE/OUTPATIENT VISIT EST Diagnosis: Chronic obstructive pulmonary disease, unspecified[ICD10: J44.9] Diagnosis: Pulmonary fibrosis[ICD10: J84.10] Diagnosis: Intermittent stridor[ICD10: R06.1] Diagnosis: Muscle weakness[ICD10: M62.81] Belia HSUQUELINE Bushra Mayda ANUSHKA [facility] CPT-4: 01210 05/13/2019 ([id number]) OFFICE/OUTPATIENT VISIT EST Diagnosis: Stridor[ICD10: R06.1] Diagnosis: COUGH[ICD10: R05] Belia Zacharynilson BRUNSON BushraMayda ANUSHKA [employer] [facility] CPT-4: 16893 05/06/2019 ([id number]) OFFICE/OUTPATIENT VISIT EST Diagnosis: Stridor[ICD10: R06.1] Diagnosis: Muscle, jerky movements (uncontrolled)[ICD10: G25.5] Belia Zacharynilson BRUNSON BushraMayda LUISER [employer] [facility] CPT-4: 31531 04/29/2019 ([id number]) OFFICE/OUTPATIENT VISIT EST Diagnosis: Upper respiratory infection[ICD10: J06.9] Diagnosis: Flank pain[ICD10: R10.9] Diagnosis: Weight gain[ICD10: R63.5] Pattie Floresjuan BRUNSON BushraMayda ZACHARY NDESudhir [employer] [facility] CPT-4: 30866 04/16/2019 ([id number]) OFFICE/OUTPATIENT VISIT EST Diagnosis: Generalized pruritus[ICD10: L29.9] Belia SALAZAR BushraMayda ZACHARYNDOTONIEL [employer] CPT-4: 61266 04/08/2019 ([id number]) OFFICE/OUTPATIENT VISIT EST Diagnosis: Acute bursitis of left shoulder[ICD10: M75.52] Diagnosis: Cervicalgia[ICD10: M54.2] Diagnosis: Chest wall pain[ICD10: R07.89] Belia BRUNSON Bushra Mayda ANUSHKA [employer] [facility] CPT-4: 87777 01/22/2019 ([id number]) OFFICE/OUTPATIENT VISIT EST Diagnosis: Abdominal pain[ICD10: R10.9] Diagnosis: Pyelonephritis[ICD10: N12] Pattie Nortonarely Shi RAND ALBERTO [employer] [facility] CPT-4: 09408 01/07/2019 ([id number]) OFFICE/OUTPATIENT VISIT EST Diagnosis: Low back pain[ICD10: M54.5] Diagnosis: Left lumbar radiculopathy[ICD10: M54.16] Diagnosis: Left flank pain[ICD10: R10.9] Diagnosis: Left lower quadrant pain[ICD10: R10.32] Diagnosis: FLU VACCINE[ICD10: Z23] Belia [facility] CPT-4: 02684 12/24/2018 ([id number]) OFFICE/OUTPATIENT VISIT EST Diagnosis: Migraine, unspecified, not intractable, without status migrainosus[ICD10: G43.909] Diagnosis: Fibromyalgia[ICD10: M79.7] Belia DOMINGUEZ [facility] CPT-4: 44585 11/20/2018 ([id number]) OFFICE/OUTPATIENT VISIT EST Diagnosis: Migraine, unspecified, intractable, without status migrainosus[ICD10: G43.919] Diagnosis: Acute sinusitis, unspecified[ICD10: J01.90] Pattie REID DO [facility] CPT-4: 36588 11/04/2018 ([id number]) OFFICE/OUTPATIENT VISIT EST Diagnosis: Pain in left wrist[ICD10: M25.532] Diagnosis: Other dorsalgia[ICD10: M54.89] Pattie REID DO [facility] CPT-4: 51129 09/08/2018 ([id number]) OFFICE/OUTPATIENT VISIT EST Diagnosis: Acute stress reaction[ICD10: F43.0] Diagnosis: Pruritus, unspecified[ICD10: L29.9] 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, 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] Belia REID [facility] CPT-4: 49589 08/20/2018 ([id number]) OFFICE/OUTPATIENT VISIT EST Diagnosis: Hypotension due to drugs[ICD10: I95.2] Diagnosis: Paroxysmal atrial fibrillation[ICD10: I48.0] Diagnosis: Localized edema[ICD10: R60.0] Belia REID [facility] CPT-4: 18796 06/19/2018 ([id number]) OFFICE/OUTPATIENT VISIT EST Diagnosis: Generalized hyperhidrosis[ICD10: R61] Diagnosis: Essential (primary) hypertension[ICD10: I10] Diagnosis: Supraventricular tachycardia[ICD10: I47.1] Belia REID DO [facility] CPT-4: 15619 06/09/2018 ([id number]) OFFICE/OUTPATIENT VISIT EST Diagnosis: Stridor[ICD10: R06.1] Diagnosis: Dependence on supplemental oxygen[ICD10: Z99.81] Diagnosis: Weakness[ICD10: R53.1] Diagnosis: Supraventricular tachycardia[ICD10: I47.1] Belia REID DO [facility] CPT-4: 30542 05/21/2018 ([id number]) OFFICE/OUTPATIENT VISIT EST Diagnosis: Cervical disc disorder with radiculopathy, unspecified cervical region[ICD10: M50.10] Belia REID DO [facility] CPT-4: 62310 04/16/2018 ([id number]) OFFICE/OUTPATIENT VISIT EST Diagnosis: Migraine, unspecified, intractable, without status migrainosus[ICD10: G43.919] Diagnosis: Fibromyalgia[ICD10: M79.7] Pattie DOMINGUEZ [facility] CPT-4: 26791 04/01/2018 ([id number]) NURSE/OUTPATIENT VISIT EST Diagnosis: Hematuria, unspecified[ICD10: R31.9] Diagnosis: Dysuria[ICD10: R30.0] Belia REID DO [facility] CPT-4: 69225 03/17/2018 ([id number]) OFFICE/OUTPATIENT VISIT EST Diagnosis: Erythema intertrigo[ICD10: L30.4] Diagnosis: Chronic obstructive pulmonary disease with (acute) exacerbation[ICD10: J44.1] Diagnosis: Type 2 diabetes mellitus with hyperglycemia[ICD10: E11.65] Belia REID DO [facility] CPT-4: 05014 03/06/2018 ([id number]) OFFICE/OUTPATIENT VISIT EST Diagnosis: Cervicalgia[ICD10: M54.2] Pattiemay AMBRIZ [facility] CPT-4: 95533 02/05/2018 ([id number]) OFFICE/OUTPATIENT VISIT EST Diagnosis: Candidiasis of skin and nail[ICD10: B37.2] Diagnosis: Cervicalgia[ICD10: M54.2] Pattie AMBRIZ [facility] CPT-4: 49891 01/20/2018 ([id number]) OFFICE/OUTPATIENT VISIT EST Diagnosis: Pain in thoracic spine[ICD10: M54.6] Diagnosis: Radiculopathy, thoracic region[ICD10: M54.14] Belia REID [facility] CPT-4: 48624 12/25/2017 ([id number]) OFFICE/OUTPATIENT VISIT EST Diagnosis: Pain in thoracic spine[ICD10: M54.6] Diagnosis: Other muscle spasm[ICD10: M62.838] Diagnosis: FLU VACCINE[ICD10: Z23] Diagnosis: PNEUMOCOCCAL VACCINE[ICD10: Z23] [facility] 34321 12/17/2017 ([id number]) OFFICE/OUTPATIENT VISIT EST Diagnosis: Chronic obstructive pulmonary disease with (acute) exacerbation[ICD10: J44.1] Belia REID [facility] CPT- 4: 78181 10/30/2017 ([id number]) OFFICE/OUTPATIENT VISIT EST Diagnosis: Chronic obstructive pulmonary disease with acute lower respiratory infection[ICD10: J44.0] Diagnosis: Mild intermittent asthma with (acute) exacerbation[ICD10: J45.21] Belia REID [facility] CPT-4: 24104 10/23/2017 ([id number]) NURSE/OUTPATIENT VISIT EST Diagnosis: Migraine, unspecified, not intractable, without status migrainosus[ICD10: G43.909] Belia REID [facility] CPT - 4: 45540 08/26/2017 ([id number]) OFFICE/OUTPATIENT VISIT EST Diagnosis: Urinary tract infection, site not specified[ICD10: N39.0] Diagnosis: Encounter for screening for osteoporosis[ICD10: Z13.820] Diagnosis: Encounter for screening mammogram for malignant neoplasm of breast[ICD10: Z12.31] Diagnosis: Acute bronchitis, unspecified[ICD10: J20.9] Pattie REID DO [facility] CPT-4: 89354 07/19/2017 ([id number]) OFFICE/OUTPATIENT VISIT EST Diagnosis: Rash and other nonspecific skin eruption[ICD10: R21] Pattie REID DO [facility] CPT-4: 30756 05/29/2017 ([id number]) OFFICE/OUTPATIENT VISIT EST Diagnosis: Diarrhea, unspecified[ICD10: R19.7] Diagnosis: Tinea corporis[ICD10: B35.4] Diagnosis: Tinea cruris[ICD10: B35.6] Diagnosis: Migraine, unspecified, not intractable, without status migrainosus[ICD10: G43.909] Belia REID [employer] [facility] CPT - 4: 83564 05/07/2017 ([id number]) OFFICE/OUTPATIENT VISIT EST Diagnosis: Stridor[ICD10: R06.1] Diagnosis: Chronic obstructive pulmonary disease with (acute) exacerbation[ICD10: J44.1] Belia REID [employer] [facility] CPT- 4: 75120 03/18/2017 ([id number]) OFFICE/OUTPATIENT VISIT EST Diagnosis: Type 2 diabetes mellitus with hyperglycemia[ICD10: E11.65] Belia REID [employer] [facility] CPT-4: 51554 02/27/2017 OFFICE/OUTPATIENT VISIT EST Diagnosis: Type 2 diabetes mellitus with hyperglycemia[ICD10: E11.65] Pattie REID DO [facility] CPT-4: 69393 02/22/2017 ([id number]) OFFICE/OUTPATIENT VISIT EST Diagnosis: Urinary tract infection, site not specified[ICD10: N39.0] Diagnosis: Pneumonia, unspecified organism[ICD10: J18.9] Diagnosis: Type 2 diabetes mellitus with hyperglycemia[ICD10: E11.65] Belia REID DO [facility] CPT-4: 38174 01/23/2017 ([id number]) OFFICE/OUTPATIENT VISIT EST Diagnosis: Type 2 diabetes mellitus with hyperglycemia[ICD10: E11.65] Diagnosis: Localized edema[ICD10: R60.0] Diagnosis: PNEUMOCOCCAL VACCINE[ICD10: Z23] Diagnosis: FLU VACCINE[ICD10: Z23] Belia FREDERICK DO [facility] CPT-4: 98560 12/20/2016 OFFICE/OUTPATIENT VISIT EST Diagnosis: Pain in thoracic spine[ICD10: M54.6] Diagnosis: Low back pain[ICD10: M54.5] Diagnosis: Cervicalgia[ICD10: M54.2] Diagnosis: Cough[ICD10: R05] Celeste WaldenRenate BELIA REID [facility] CPT-4: 35842 10/08/2016 ([id number]) OFFICE/OUTPATIENT VISIT EST Diagnosis: Primary insomnia[ICD10: F51.01] Diagnosis: Migraine, unspecified, not intractable, without status migrainosus[ICD10: G43.909] Diagnosis: Type 2 diabetes mellitus with hyperglycemia[ICD10: E11.65] Belia REID [facility] CPT-4: 31482 09/19/2016 ([id number]) OFFICE/OUTPATIENT VISIT EST Diagnosis: Migraine, unspecified, not intractable, without status migrainosus[ICD10: G43.909] Diagnosis: Generalized abdominal pain[ICD10: R10.84] Diagnosis: Cough[ICD10: R05] Belia REID DO [facility] CPT-4: 00674 08/20/2016 ([id number]) OFFICE/OUTPATIENT VISIT EST Diagnosis: Chronic obstructive pulmonary disease, unspecified[ICD10: J44.9] Diagnosis: Stridor[ICD10: R06.1] Belia REID DO [facility] CPT-4: 67003 06/19/2016 ([id number]) OFFICE/OUTPATIENT VISIT EST Diagnosis: Chronic obstructive pulmonary disease, unspecified[ICD10: J44.9] Diagnosis: Personal history of urinary (tract) infections[ICD10: Z87.440] Belia REID [facility] CPT-4: 42542 06/04/2016 ([id number]) OFFICE/OUTPATIENT VISIT EST Diagnosis: Stridor[ICD10: R06.1] Diagnosis: Chronic obstructive pulmonary disease with acute lower respiratory infection[ICD10: J44.0] Diagnosis: Other specified diseases of intestine[ICD10: K63.89] Diagnosis: Cystitis, unspecified without hematuria[ICD10: N30.90] Belia REID [employer] [facility] CPT-4: 55834 05/02/2016 ([id number]) OFFICE/OUTPATIENT VISIT EST Diagnosis: Fibromyalgia[ICD10: M79.7] Diagnosis: Urinary tract infection, site not specified[ICD10: N39.0] Belia REID DO [facility] CPT-4: 97747 04/03/2016 ([id number]) OFFICE/OUTPATIENT VISIT EST Diagnosis: Unspecified asthma, uncomplicated[ICD10: J45.909] Diagnosis: Cough[ICD10: R05] Lidia REID [employer] [facility] T-4: 73784 02/29/2016 ([id number]) OFFICE/OUTPATIENT VISIT EST Diagnosis: Migraine, unspecified, intractable, without status migrainosus[ICD10: G43.919] Diagnosis: Urinary tract infection, site not specified[ICD10: N39.0] Belia REID [employer] [facility] CPT-4: 36500 02/02/2016 ([id number]) OFFICE/OUTPATIENT VISIT EST Diagnosis: Urinary tract infection, site not specified[ICD10: N39.0] Diagnosis: Unspecified abdominal pain[ICD10: R10.9] Diagnosis: Pain in thoracic spine[ICD10: M54.6] Diagnosis: Type 2 diabetes mellitus with diabetic neuropathic arthropathy[ICD10: E11.610] Belia REID [employer] [facility] CPT-4: 94486 12/05/2015 ([id number]) OFFICE/OUTPATIENT VISIT EST Diagnosis: Chronic obstructive pulmonary disease with (acute) exacerbation[ICD10: J44.1] Diagnosis: Migraine, unspecified, not intractable, without status migrainosus[ICD10: G43.909] Lidia REID [employer] [facility] CPT -4: 39692 10/26/2015 ([id number]) OFFICE/OUTPATIENT VISIT EST Diagnosis: Hematuria, unspecified[ICD10: R31.9] Diagnosis: Urinary tract infection, site not specified[ICD10: N39.0] Lidia HSUQUELINE Yuridia REID [employer] [facility] CPT-4: 52265 10/05/2015 OFFICE/OUTPATIENT VISIT EST Diagnosis: Chronic obstructive pulmonary disease, unspecified[ICD10: J44.9] Diagnosis: Muscle weakness (generalized)[ICD10: M62.81] Diagnosis: Polyneuropathy, unspecified[ICD10: G62.9] Diagnosis: Other intervertebral disc degeneration, 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] Diagnosis: Fibromyalgia[ICD10: M79.7] Belia HSUQUELINE Yuridia DOMINGUEZ [employer] [facility] CPT-4: 19395 09/15/2015 ([id number]) OFFICE/OUTPATIENT VISIT EST Diagnosis: Disorientation, unspecified[ICD10: R41.0] Diagnosis: Headache[ICD10: R51] Diagnosis: Paresthesia of skin[ICD10: R20.2] Lidia Hwang KOFFI Paredes BushraMayda ANUSHKA [employer] [facility] CPT-4: 57258 08/24/2015 ([id number]) OFFICE/OUTPATIENT VISIT EST Diagnosis: Type 2 diabetes mellitus with hyperglycemia[ICD10: E11.65] Diagnosis: Chronic obstructive pulmonary disease with acute lower respiratory infection[ICD10: J44.0] Belia Anushka CORNELLLINE BushraMayda ANUSHKA [employer] [facility] CPT-4: 82283 07/05/2015 ([id number]) OFFICE/OUTPATIENT VISIT EST Diagnosis: Mild intermittent asthma with (acute) exacerbation[ICD10: J45.21] Diagnosis: Chronic obstructive pulmonary disease, unspecified[ICD10: J44.9] Belia Anushka BELIA BushraMayda ANUSHKA [employer] [facility] CPT-4: 57900 06/06/2015 ([id number]) OFFICE/OUTPATIENT VISIT EST Diagnosis: Chronic obstructive pulmonary disease with (acute) exacerbation[ICD10: J44.1] Lidianick Hwang BELIA BushraMayda ANUSHKA [employer] [facility] CPT- 4: 34198 05/23/2015 ([id number]) OFFICE/OUTPATIENT VISIT EST Diagnosis: Type 2 diabetes mellitus with hyperglycemia[ICD10: E11.65] Diagnosis: Functional dyspepsia[ICD10: K30] Belia BRUNSON BushraMayda [facility] CPT-[facility]: 74140 05/05/2015 ([id number]) OFFICE/OUTPATIENT VISIT EST Diagnosis: Type 2 diabetes mellitus with hyperglycemia[ICD10: E11.65] Diagnosis: Glycosuria[ICD10: R81] Diagnosis: Urinary tract infection, site not specified[ICD10: N39.0] [facility]: 83975 03/30/2015 ([id number]) OFFICE/OUTPATIENT VISIT EST Diagnosis: Generalized abdominal pain[ICD10: R10.84] Diagnosis: Diarrhea, unspecified[ICD10: R19.7] Diagnosis: Urinary tract infection, site not specified[ICD10: N39.0] Diagnosis: Gastro-esophageal reflux disease without esophagitis[ICD10: K21.9] [facility]: 75978 02/03/2015 ([id number]) OFFICE/OUTPATIENT VISIT EST Diagnosis: Other specified noninflammatory disorders of vagina[ICD10: N89.8] Diagnosis: Follicular disorder, unspecified[ICD10: L73.9] Diagnosis: Functional dyspepsia[ICD10: K30] Diagnosis: FLU VACCINE[ICD10: Z23] Belia SMITH [facility] CPT-4: 89756 12/29/2014 ([id number]) OFFICE/OUTPATIENT VISIT EST 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] Diagnosis: RESTLESS LEGS SYNDROME[ICD9: 333.94] Diagnosis: MIGRAINE NOS/NOT INTRCBL[ICD9: 346.90] Belia Zacharybeckyotoniel Shi [facility]: 71090 09/02/2014 ([id number]) OFFICE/OUTPATIENT VISIT EST Diagnosis: Cervical radiculopathy[ICD9: 723.4] Diagnosis: Cervicalgia[ICD9: 723.1] Diagnosis: Degenerative disc disease, cervical[ICD9: 722.4] 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I[ICD9: 250.00] [facility]anna [facility] CPT-[facility]: 29015 04/01/2014 OFFICE/OUTPATIENT VISIT EST Diagnosis: Reactive airway disease[ICD9: 493.90] Belia REID DO [facility] CPT-4: 95891 03/16/2014 ([id number]) OFFICE/OUTPATIENT VISIT EST Diagnosis: BRONCHITIS, ACUTE[ICD9: 466.0] Diagnosis: Reactive airway disease[ICD9: 493.90] Belia REID DO [facility] CPT-4: 07426 03/09/2014 OFFICE/OUTPATIENT VISIT EST Diagnosis: BRONCHITIS, ACUTE[ICD9: 466.0] Diagnosis: WHEEZING[ICD9: 786.07] Huong Peguero [facility] CPT-4: 70714 03/03/2014 OFFICE/OUTPATIENT VISIT EST Diagnosis: BRONCHITIS, ACUTE[ICD9: 466.0] Diagnosis: WHEEZING[ICD9: 786.07] Huong Peguero [facility] CPT-4: 13687 03/01/2014 ([id number]) OFFICE/OUTPATIENT VISIT EST Diagnosis: GERD[ICD9: 530.81] Diagnosis: ARTHRALGIA-MULTIPLE SITES[ICD9: 719.49] Diagnosis: LUMB/LUMBOSAC DISC DEGEN[ICD9: 722.52] Diagnosis: - I - FIBROMYALGIA[ICD9: 729.1] Belia CORNELLLINE BushraMayda ANUSHKA [facility] CPT-4: 08237 02/09/2014 ([id number]) OFFICE/OUTPATIENT VISIT EST Diagnosis: Peptic ulcer disease[ICD9: 533.90] Diagnosis: RESTLESS LEGS SYNDROME[ICD9: 333.94] Diagnosis: Neuropathy[ICD9: 355.9] Belia Zacharynilson HSUBELIA Yuridia FREDERICK [facility] CPT-4: 91278 12/23/2013 ([id number]) OFFICE/OUTPATIENT VISIT EST Diagnosis: URINARY TRACT INFECTION[ICD9: 599.0] Beliahanna ARNOLD BushraMayda ANUSHKA [facility] CPT-4: 01115 10/30/2013 ([id number]) OFFICE/OUTPATIENT VISIT EST Diagnosis: Flank pain[ICD9: 789.00] Belia BRUNSON BushraMayda KIESHA VIRGILIO [facility] CPT-4: 71216 10/21/2013 ([id number]) OFFICE/OUTPATIENT VISIT EST Diagnosis: INFLAMED SEBORR KERATOS[ICD9: 702.11] Diagnosis: Brachioradial pruritus[ICD9: 698.9] Diagnosis: ASTHMA NOS[ICD9: 493.90] Belia BRUNSON BushraMayda KIESHA [facility] CPT-4: 01035 10/05/2013 ([id number]) OFFICE/OUTPATIENT VISIT EST Diagnosis: HYPERTENSION[ICD9: 401.9] Diagnosis: - I - FIBROMYALGIA[ICD9: 729.1] Diagnosis: DIZZINESS/VERTIGO[ICD9: 780.4] Diagnosis: MIGRAINE NOS/NOT INTRCBL[ICD9: 346.90] Diagnosis: Diabetic peripheral neuropathy[ICD9: 250.60] Diagnosis: Flank pain[ICD9: 789.00] Belia Shi KIESHA [facility] CPT-4: 98417 08/04/2013 ([id number]) OFFICE/OUTPATIENT VISIT EST Diagnosis: ALLERGIC RHINITIS[ICD9: 477.9] Belia Ohara [facility]: 65737 07/13/2013 OFFICE/OUTPATIENT VISIT EST Diagnosis: URINARY TRACT INFECTION[ICD9: 599.0] Huong [facility]: 85860 07/03/2013 OFFICE/OUTPATIENT VISIT EST Diagnosis: HYPERTENSION[ICD9: 401.9] Diagnosis: URINARY TRACT INFECTION[ICD9: 599.0] Diagnosis: BACKACHE[ICD9: 724.5] Diagnosis: URINARY INCONTINENCE[ICD9: 788.30] Huong [facility]: 79174 05/27/2013 ([id number]) OFFICE/OUTPATIENT VISIT EST Diagnosis: Flank pain[ICD9: 789.00] Belia BRUNSON BushraMayda KIESHA [facility] CPT-4: 41495 05/25/2013 ([id number]) OFFICE/OUTPATIENT VISIT EST Diagnosis: B-COMPLEX DEFIC NEC[ICD9: 266.2] Belia [facility]: 77601 05/04/2013 ([id number]) OFFICE/OUTPATIENT VISIT EST Diagnosis: ALLERGIC RHINITIS[ICD9: 477.9] Diagnosis: Vitamin B12 deficiency[ICD9: 266.2] Belia Humphriesnilson ARACELISROBERTOFelicita DONNA Yuridia REID [facility] CPT-4: 47231 04/17/2013 ([id number]) OFFICE/OUTPATIENT VISIT EST 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I[ICD9: 250.00] Diagnosis: URINARY TRACT INFECTION[ICD9: 599.0] Diagnosis: DIZZINESS/VERTIGO[ICD9: 780.4] Diagnosis: DIARRHEA[ICD9: 787.91] Belia Humphriesnilson BRUNSON BushraMayda RALF Peguero [facility] CPT-4: 65637 04/06/2013 ([id number]) OFFICE/OUTPATIENT VISIT EST Diagnosis: URINARY TRACT INFECTION[ICD9: 599.0] Diagnosis: URINARY RETENTION[ICD9: 788.20] Belia Zacharybeckyotoniel HSUBELIA BushraMayda ANUSHKA [facility] CPT-4: 16464 11/10/2012 ([id number]) OFFICE/OUTPATIENT VISIT EST Diagnosis: TACHYCARDIA[ICD9: 785.0] Diagnosis: SYNCOPE AND COLLAPSE[ICD9: 780.2] Diagnosis: CONSCIOUSNS ALTERAT NEC[ICD9: 780.09] Belia HSUPAUL LUBNA BushraMayda ANUSHKA [facility] CPT-4: 44662 09/02/2012 OFFICE/OUTPATIENT VISIT EST Diagnosis: TACHYCARDIA[ICD9: 785.0] Diagnosis: SYNCOPE AND COLLAPSE[ICD9: 780.2] Beliahanna Paredes BushraMayda ANUSHKA [facility] CPT-4: 94806 08/04/2012 ([id number]) OFFICE/OUTPATIENT VISIT EST Diagnosis: Loss of consciousness[ICD9: 780.09] Diagnosis: Tachycardia[ICD9: 785.0] Diagnosis: MALAISE AND FATIGUE[ICD9: 780.79] Belia Paredes BushraMayda ANUSHKA [facility] CPT-4: 87089 07/21/2012 ([id number]) OFFICE/OUTPATIENT VISIT EST Diagnosis: BRONCHITIS, ACUTE[ICD9: 466.0] Diagnosis: ASTHMA NOS[ICD9: 493.90] Belia Shi KIESHARegino POOLE [facility] CPT-4: 09214 07/02/2012 ([id number]) OFFICE/OUTPATIENT VISIT EST Diagnosis: CEPHALGIA[ICD9: 784.0] Belia Peguero [employer] CPT-4: 95411 06/25/2012 ([id number]) OFFICE/OUTPATIENT VISIT EST Diagnosis: GERD[ICD9: 530.81] Diagnosis: DIARRHEA[ICD9: 787.91] Diagnosis: URINARY TRACT INFECTION[ICD9: 599.0] Diagnosis: ASTHMA NOS[ICD9: 493.90] Diagnosis: ALLERGIC RHINITIS[ICD9: 477.9] Belia Tomlinson Mayda ANUSHKA [employer] [facility] CPT-4: 95882 06/24/2012 ([id number]) OFFICE/OUTPATIENT VISIT EST Diagnosis: MIGRAINE NOS/NOT INTRCBL[ICD9: 346.90] Diagnosis: TREMOR NEC[ICD9: 333.1] Diagnosis: CHRONIC PAIN SYNDROME[ICD9: 338.4] Belia BASS MARIE BushraMayda ANUSHKA [employer] [facility] CPT-4: 31112 05/20/2012 ([id number]) OFFICE/OUTPATIENT VISIT EST Diagnosis: DIZZINESS/VERTIGO[ICD9: 780.4] Diagnosis: PALPITATIONS[ICD9: 785.1] Diagnosis: TREMOR NEC[ICD9: 333.1] Diagnosis: ANXIETY STATE NOS[ICD9: 300.00] Diagnosis: POSTTRAUMATIC STRESS DISORDER[ICD9: 309.81] Belia CORNELLLINE BushraMayda ANUSHKA [employer] [facility] CPT-4: 31930 05/08/2012 ([id number]) OFFICE/OUTPATIENT VISIT EST Diagnosis: MIGRAINE NOS/NOT INTRCBL[ICD9: 346.90] Diagnosis: FIBROMYALGIA[ICD9: 729.1] Diagnosis: SYNCOPE AND COLLAPSE[ICD9: 780.2] Diagnosis: Diabetic peripheral neuropathy[ICD9: 250.60] Belia CORNELLLINE BushraMayda ANUSHKA [employer] [facility] CPT-4: 00250 04/22/2012 OFFICE/OUTPATIENT VISIT EST Diagnosis: ROTATOR CUFF DIS NEC[ICD9: 726.19] Diagnosis: JOINT PAIN-SHLDER[ICD9: 719.41] Diagnosis: DYSPEPSIA[ICD9: 536.8] Belializ Reid BELIA BushraMayda RALF Peguero [employer] [facility] CPT-4: 02747 02/13/2012 ([id number]) OFFICE/OUTPATIENT VISIT EST Diagnosis: MIGRAINE NOS/NOT INTRCBL[ICD9: 346.90] Diagnosis: GERD[ICD9: 530.81] Diagnosis: DYSPEPSIA[ICD9: 536.8] Belia Peguero [facility] CPT-4: 88484 01/28/2012 OFFICE/OUTPATIENT VISIT EST Diagnosis: CEPHALGIA[ICD9: 784.0] Diagnosis: MIGRAINE NOS/NOT INTRCBL[ICD9: 346.90] Diagnosis: GERD[ICD9: 530.81] Diagnosis: INSOMNIA NOS[ICD9: 780.52] Belia CORNELLLINE Yuridia DOMINGUEZ [facility] CPT-4: 34554 12/26/2011 ([id number]) OFFICE/OUTPATIENT VISIT EST Diagnosis: CEPHALGIA[ICD9: 784.0] Diagnosis: MIGRAINE NOS/NOT INTRCBL[ICD9: 346.90] Diagnosis: MALAISE AND FATIGUE[ICD9: 780.79] Diagnosis: FIBROMYALGIA[ICD9: 729.1] Diagnosis: ALLERGIC RHINITIS[ICD9: 477.9] Belia CORNELLLINE Bushra Mayda ANUSHKA [facility] CPT-4: 25591 11/14/2011 ([id number]) OFFICE/OUTPATIENT VISIT EST Diagnosis: MALAISE AND FATIGUE[ICD9: 780.79] Diagnosis: MUSCLE WEAKNESS-GENERAL[ICD9: 728.87] Diagnosis: MIGRAINE NOS/NOT INTRCBL[ICD9: 346.90] Diagnosis: JOINT PAIN-SHLDER[ICD9: 719.41] Belia Anushka CORNELLLINE BushraMayda ANUSHKA [facility] CPT-4: 52702 09/12/2011 ([id number]) OFFICE/OUTPATIENT VISIT EST Diagnosis: CONCUSSION[ICD9: 850.9] Diagnosis: Ataxia[ICD9: 781.3] Diagnosis: DIZZINESS/VERTIGO[ICD9: 780.4] Belia CORNELLLINE Bushra Mayda ANUSHKA [facility] CPT-4: 05249 08/15/2011 ([id number]) OFFICE/OUTPATIENT VISIT EST Diagnosis: THROMBOPHLEBITIS[ICD9: 451.9] Diagnosis: Subacromial bursitis[ICD9: 726.19] Diagnosis: ALLERGIC RHINITIS[ICD9: 477.9] Diagnosis: Lipoma[ICD9: 214.9] Belia REID [facility] CPT-4: 33007 08/09/2011 ([id number]) OFFICE/OUTPATIENT VISIT EST Diagnosis: THROMBOPHLEBITIS[ICD9: 451.9] Diagnosis: Arm pain[ICD9: 729.5] Diagnosis: Clostridium difficile colitis[ICD9: 008.45] Diagnosis: URINARY TRACT INFECTION[ICD9: 599.0] [facility]: 46286 07/03/2011 ([id number]) OFFICE/OUTPATIENT VISIT EST Diagnosis: ARTHRALGIA-MULTIPLE SITES[ICD9: 719.49] Diagnosis: Muscle cramp[ICD9: 729.82] Diagnosis: INSOMNIA NOS[ICD9: 780.52] [facility]: 39220 06/04/2011 OFFICE/OUTPATIENT VISIT EST Diagnosis: Headache[ICD9: 784.0] Diagnosis: Allergic rhinitis[ICD9: 477.9] Belia REID [facility] CPT-4: 79592 05/03/2011 OFFICE/OUTPATIENT VISIT EST Diagnosis: LUMB/LUMBOSAC DISC DEGEN[ICD9: 722.52] Diagnosis: MIGRAINE NOS/NOT INTRCBL[ICD9: 346.90] Diagnosis: CHRONIC PAIN SYNDROME[ICD9: 338.4] Diagnosis: RESTLESS LEGS SYNDROME[ICD9: 333.94] [facility]: 22941 04/05/2011 OFFICE/OUTPATIENT VISIT EST Diagnosis: MIGRAINE NOS/NOT INTRCBL[ICD9: 346.90] Diagnosis: GERD[ICD9: 530.81] Belia ERID [facility] CPT-4: 42480 03/08/2011 OFFICE/OUTPATIENT VISIT EST Diagnosis: URINARY TRACT INFECTION[ICD9: 599.0] Diagnosis: Vertigo[ICD9: 780.4] Diagnosis: GERD[ICD9: 530.81] Belia REID [facility] CPT-4: 95195 01/24/2011 OFFICE/OUTPATIENT VISIT EST Diagnosis: Hypotension[ICD9: 458.9] Diagnosis: Syncopal episodes[ICD9: 780.2] Diagnosis: MIGRAINE NOS/NOT INTRCBL[ICD9: 346.90] Diagnosis: MALAISE AND FATIGUE[ICD9: 780.79] Belia Shi ZACHARYNDER DO [facility] CPT-4: 80333 01/02/2011 OFFICE/OUTPATIENT VISIT EST Diagnosis: Tinea cruris[ICD9: 110.3] Diagnosis: Intertrigo[ICD9: 695.89] Diagnosis: MIGRAINE NOS/NOT INTRCBL[ICD9: 346.90] Belia COKER SMayda ZACHARYNDER [facility] CPT-4: 95543 12/07/2010 OFFICE/OUTPATIENT VISIT EST Diagnosis: PALPITATIONS[ICD9: 785.1] Diagnosis: ANXIETY STATE NOS[ICD9: 300.00] Belia Shi ZACHARYNDER [facility] CPT-4: 09062 11/16/2010 OFFICE/OUTPATIENT VISIT EST Diagnosis: URINARY TRACT INFECTION[ICD9: 599.0] Diagnosis: MIGRAINE NOS/NOT INTRCBL[ICD9: 346.90] Iraida COKER SMayda ZACHARYNDER [facility] CPT-4: 90458 11/02/2010 OFFICE/OUTPATIENT VISIT EST Diagnosis: ALLERGIC RHINITIS[ICD9: 477.9] Diagnosis: ANXIETY STATE NOS[ICD9: 300.00] Belia SMITHER DO [facility] CPT-4: 38306 10/18/2010 OFFICE/OUTPATIENT VISIT EST Belia HUMPHRIES NDER DO [facility] CPT- 4: 69782 09/19/2010 OFFICE/OUTPATIENT VISIT EST Belia HUMPHRIES NDER DO [facility] CPT- 4: 01835 09/06/2010 ([id number]) OFFICE/OUTPATIENT VISIT EST Belia COKER SMayda ORENDER DO [facility] CPT-4: 84060 08/10/2010 ([id number]) OFFICE/OUTPATIENT VISIT EST Belia COKER SMayda ORENDER DO [facility] CPT-4: 21054 05/11/2010 ([id number]) OFFICE/OUTPATIENT VISIT, EST Belia [facility] CPT-4: 39250 04/06/2010 ([id number]) OFFICE/OUTPATIENT VISIT, EST Belia [facility]SU [facility] CPT-4: 19414 02/09/2010 ([id number]) OFFICE/OUTPATIENT VISIT, EST Belia [facility] CPT-4: 50421 01/05/2010 ([id number]) OFFICE/OUTPATIENT VISIT, EST Belia [facility] CPT-4: 64236 12/07/2009 ([id number]) OFFICE/OUTPATIENT VISIT, EST Belia [facility]SU [facility] CPT-4: 74027 11/08/2009 ([id number]) OFFICE/OUTPATIENT VISIT, EST Belia [facility]IALINE [facility] CPT-4: 80680 10/24/2009 ([id number]) OFFICE/OUTPATIENT VISIT, EST Belia [facility]SU [facility] CPT-4: 54694 07/25/2009 ([id number]) OFFICE/OUTPATIENT VISIT, EST Belia [facility]SU [facility] CPT-4: 22050 05/26/2009 Plan of Care Planned Activity Notes Codes Status Date Visit Diagnosis Plan: Diarrhea Discussion: Vancomycin for 10 days and notify if not improving or worsening BLAND diet Hydrate ICD-9 : 787.91 ICD-10 : R19.7 06/08/2019 Visit Diagnosis Plan: Colitis Discussion: Flagyl plus cipro to cover for both colitis and UTI Notify or to ER if worsening ICD-9 : 558.9 ICD-10 : K52.9 05/26/2019 Visit Diagnosis Plan: Acute febrile illness Discussion : Notify if worsens ICD-9 : 780.60 ICD-10 : R50.9 05/26/2019 [facility]ment[facility] [phone] [id number] [facility] 05/26/2019 Appointment: Pattie Sotomayor [address] [place], [place] [phone] US RESCHEDULED 05/18/2019 Visit Diagnosis Plan: Chronic obstructive pulmonary di sease, unspecified Discussion: Recommend pulmonary rehab Patient states she never went to pulmonary rehab due to cost as well as transportation issues Finish trelagy Stop singulair Decrease hydroxyzine to 25mg po q HS Fwup [address] scan of Chest results discussed ICD-9 : 496 ICD-10 : J44.9 05/13/2019 Appointment: Belia Reid WPtel: [address] [place], [place] [phone] Hospital Follow Up 05/13/2019 Visit Diagnosis Plan: COUGH Discussion: Check CT scan of chest ICD-9 : 786.2 ICD-10 : R05 05/06/2019 Visit Diagnosis Plan: Stridor Discussion: Add Trelagy 1 p daily Add Singulair May need to see new attic blower ICD-9 : 786.1 ICD-10 : R06.1 05/06/2019 Appointment: Belia Reid WPtel: [address] [place], [place] [phone] FOLLOW UP 05/06/2019 Patient Education: Singulair- [employer] Coupon [id number] [email or web address] Completed 05/06/2019 Appointment: Belia Reid WPtel: [address] [place], [place] [phone] US RESCHEDULED 04/30/2019 Visit Diagnosis Plan: Stridor [...] : G25.5 04/29/2019 [facility]ment[phone] [id number] [facility] 04/29/2019 Patient Education: Valium- [employer] Coupon [id number] [email or web address] Completed 04/29/2019 Visit Diagnosis Plan: Flank pain [...] ICD-10 : R63.5 04/16/2019 Appointment: Pattie Sotomayor [address] [place], [place] [id number] ACUTE ILLNESS 04/16/2019 Patient Education: cyclobenzaprine- [employer] Coupon [id number] [email or web address] Completed 04/16/2019 Visit Diagnosis Plan: Migraine, unspecif ied, not intractable, without status migrainosus Discussion: Increase gabapentin to 600mg po BID ICD-9 : 346.90 ICD-10 : G43.909 04/08/2019 Visit Diagnosis Plan: Generalized pruritus Discussion: Hydroxyzine 25mg po TID for itching and anxiety ICD-9 : 698.9 ICD-10 : L29.9 04/08/2019 [facility] [phone] [id number] [facility] 04/08/2019 Visit Diagnosis Plan: Cervicalgia [...] : M75.52 01/22/2019 Appointment: Belia Reid WPtel: [address] [place] [address] Follow Up 01/22/2019 Visit Diagnosis Plan: Abdominal pain Discussion: urine culture sent to assess for any infection. rocephin given in office to cover for pyelonephritis. instructed to push fluids. call office with any new or worsening symptoms. ICD-9 : 789.00 ICD-10 : R10.9 01/07/2019 Appointment: Pattie Sotomayor [address] [place] [address] ACUTE ILLNESS 01/07/2019 Visit Diagnosis Plan: Low back pain Discussion: Stat C T of abdomen/pelvis now ICD-9 : 724.2 ICD-10 : M54.5 12/24/2018 Appointment: Belia Reid WPtel: [address] [place] [address] FOLLOW UP 12/24/2018 Visit Diagnosis Plan: Migraine, [...] : M79.7 11/20/2018 Appointment: Belia Reid WPtel: [address] [place] [address] ACUTE ILLNESS 11/20/2018 Patient Education: baclofen- [employer] Coupon [id number] https://www.Socialance.AgenT[employer]/samplemd/resources/getResource/61/6g5465y7-iq8w-55dy-33 Completed 11/20/2018 Visit Diagnosis Plan: Migraine, unspecif ied, intractable, without status migrainosus Discussion: toradol/phenergan given in o ffice (60 mg toradol, 12.5 mg phenergan). instructed to call if no improvement or worsening. instructed to follow up with machine applicator cementer since headaches are occurring more frequently to make sure vision is not the cause. ICD-9 : 346.91 ICD-10 : G43.919 11/04/2018 Visit Diagnosis Plan: Acute sinusitis, unspecified Dis cussion: zithromax prescribed to cover for sinus infection due to length of symptoms and clinincal s/s. ICD-9 : 461.9 ICD-10 : J01.90 11/04/2018 Appointment: Pattie Sotomayor [address] [place], [place] [id number] ACUTE ILLNESS 11/04/2018 Appointment: Belia Reid WPtel: [phone] [facility] US CANCELED 09/24/2018 Visit Diagnosis Plan: Type 2 diabetes me llitus with diabetic neuropathy, unspecified Discussion: Retry gabapentin 300mg po q HS ICD-9 : 250.60 ICD-10 : E11.40 09/18/2018 Visit Diagnosis Plan: Vitamin D deficiency, unspecifie d Discussion: Increase Vitamin D3 to 10,000 u daily ICD-9 : 268.9 ICD-10 : E55.9 09/18/2018 Visit Diagnosis Plan: Encounter for [facility] adult medical examination without abnormal findings [...] : I10 09/18/2018 Appointment: Belia Reid WPtel: [phone] [facility] Annual Well Visit 09/18/2018 Patient Education: gabapentin- OptimizeRX Coupon [id number] https://www.Tripping/samplemd/resources/getResource/61/9e62hj29-5qc2-1qtf-i3 Completed 09/18/2018 Visit Diagnosis Plan: Pain in [...] ICD-10 : M54.89 09/08/2018 Appointment: Pattie Sotomayor [address] [place] [address] ACUTE ILLNESS 09/08/2018 Patient Education: prednisone- Opt[employer]RX Coupon [id number] https://www.Tripping/Socialance/resources/getResource/61/6e0ub09q-3837-19q3-fc Completed 09/08/2018 Visit Diagnosis Plan: Pruritus, unspecified [...] : E10.9 08/20/2018 Appointment: Belia Reid WPtel: [phone] ACUTE ILLNESS 08/20/2018 Patient Education: Lexapro- Optimize[employer] Coupon [id number] Completed 08/20/2018 Patient Education: hydroxyzine HCl- Optimize[employer] Coupon [id number] Completed 08/20/2018 Care Plan: MAMMOGRAM SCREENING LOINC : 2 6347-5 Pending 08/20/2018 Visit Diagnosis Plan: Paroxysmal atrial fibrillation D iscussion: Discuss eliquis need with cardiology at [facility] due to cost ICD-9 : 427.31 ICD-10 : I48.0 06/19/2018 Visit Diagnosis Plan: Hypotension due to drugs Discuss ion: Discussed decreasing cardizem dose due to low BP and edema but sees cardiology next week Follow Up: 1 months ICD-9 : 458.8 ICD-10 : I95.2 06/19/2018 Appointment: Belia Reid WPtel: [address] [place], [place] [phone] [place] FOLLOW UP 06/19/2018 Visit Diagnosis Plan: [...] : R61 06/09/2018 Appointment: Belia Reid WPtel: [address] [place], [place] [phone] [place] FOLLOW UP 06/09/2018 Care Plan: CHEST X-RAY 2VW FRONTAL&LATL LOINC : 41311-0 Pending 05/26/2018 Visit Diagnosis Plan: Supraventricular tachycardia [...] : R53.1 05/21/2018 Appointment: Belia Reid WPtel: [address] [place] [address] Hospital Follow Up 05/21/2018 Visit Diagnosis Plan: Cervical disc diso rder with radiculopathy, unspecified cervical region Discussion: Scheduled for surgery on 06/02 10/[address] Faulkner ICD-9 : 722.0 ICD-10 : M50.10 04/16/2018 Appointment: Belia Reid WPtel: [address] [place] [address] Follow Up 04/16/2018 Visit Diagnosis Plan: Fibromyalgia [...] ICD-10 : G43.919 04/01/2018 Appointment: Pattie Sotomayor [address] [place] [address] ACUTE ILLNESS 04/01/2018 Appointment: Belia Reid WPtel: [address] [place] [address] UA 03/17/2018 Visit Diagnosis Plan: Erythema intertrigo Discussio: [...] 491.21 ICD-10 : J44.1 03/06/2018 Appointment: Belia Reidtel: [phone] [facility] Hospital Follow Up 03/06/2018 Visit Diagnosis Plan: Cervicalgia Discussion: spoke wi th dr. reid about patient. increased gabapentin to bid and started on celebrex bid. tramadrol rx written out to take prn. keep scheduled appt next week for myelogram. ICD-9 : 723.1 ICD-10 : M54.2 02/05/2018 Appointment: Pattie Sotomayor [address] [place] [address] ACUTE ILLNESS 02/05/2018 Care Plan: X-RAY EXAM NECK SPINE 4/5VWS cervical LOINC : 97338-3 Pending 01/21/2018 Visit Diagnosis Plan: Candidiasis of [...] 723.1 ICD-10 : M54.2 01/20/2018 Appointment: Pattie oStomayor [address] [place] [address] ACUTE ILLNESS 01/20/2018 Visit Diagnosis Plan: Pain in thoracic spine Discussio n: Proceed with CT scan of thoracic spine Will likely need PT ICD-9 : 724.1 ICD-10 : M54.6 12/25/2017 Appointment: [phone] [facility] 12/25/2017 Care Plan: CT THORAX W/O DYE LOINC : 473 66-0 Pending 12/25/2017 Visit Diagnosis Plan: Pain in thoracic spine Discussio n: Stretches Alternated heat/ice Topical aspercreme with lidocaine Flexeril Recheck 1 week Flu and Pneumovax given ICD-9 : 724.1 ICD-10 : M54.6 12/17/2017 Appointment: Belia Reid WPtel: [address] [place] [address] ACUTE ILLNESS 12/17/2017 Patient Education: Patient Medication [...] 491.21 ICD-10 : J44.1 10/30/2017 Appointment: Belia Reid WPtel: [address] [place] [address] FOLLOW UP 10/30/2017 Patient Education: Patient Medication Summary Completed 10/30/2017 Visit Diagnosis Plan: Chronic obstructiv e pulmonary disease with acute lower respiratory infection Discussion: Continue SVNs with albuterol q4hrs Add Trelagy 1 inhalation daily Finish steroids Increase water intake Follow Up: 1 weeks ICD-9 : 496 ICD-10 : J44.0 10/23/2017 Appointment: Belia Reid WPtel: [address] [place] [address] WORK IN 10/23/2017 Patient Education: Patient Medication Summary Completed 10/23/2017 Appointment: Belia Reidtel: [address] [place] [address] NO SHOW 10/16/2017 Visit Diagnosis Plan: Confusional [...] 250.02 ICD-10 : E11.65 09/17/2017 Appointment: Belia Reid WPtel: [phone] [facility] [place] Annual Well Visit 09/17/2017 Patient Education: Patient Medication Summary Completed 09/17/2017 Appointment: Belia Reid WPtel: [phone] [facility] US INJECTION 08/26/2017 Patient Education: Patient Medication Summary Completed 08/26/2017 Appointment: Belia Reid WPtel: [phone] [facility] US CANCELED 07/31/2017 Visit Diagnosis Plan: Encounter [...] ICD-10 : J20.9 07/19/2017 Appointment: Pattie Sotomayor [address] [place] [address] ACUTE ILLNESS 07/19/2017 Patient Education: Patient Medication Summary Completed 07/19/2017 Care Plan: MAMMOGRAM SCREENING LOINC : 2 6347-5 Pending 07/19/2017 Patient Education: Patient Medication Summary Completed 06/05/2017 Care Plan: LIPID PANEL LOINC : 39011-0 Pending 06/05/2017 Care Plan: A1C HPLC LOINC : 73656-5 Pending 06/05/2017 Visit Diagnosis Plan: Rash and [...] ICD-10 : R21 05/29/2017 Appointment: Pattie Sotomayor [address] [place] [address] FOLLOW UP 05/29/2017 Patient Education: Patient Medication Summary Completed 05/29/2017 Visit Diagnosis Plan: Diarrhea, unspecified Discussion : Diflucan Cholestyramine Recheck 2weeks ICD-9 : 787.91 ICD-10 : R19.7 05/07/2017 Visit Diagnosis Plan: Tinea corporis Discussion: Diflu can and topical nystatin Follow Up: 2 weeks ICD-9 : 110.5 ICD-10 : B35.4 05/07/2017 Appointment: Belia Reid WPtel: [address] [place] [address] FOLLOW UP 05/07/2017 Patient Education: Patient Medication Summary Completed 05/07/2017 Appointment: Belia Reid WPtel: [address] [place] [address] US RESCHEDULED 04/30/2017 Visit Diagnosis Plan: Stridor Discussion: Increase Ati van 0.5mg po to TID routinely for next week then can go back to prn ICD-9 : 786.1 ICD-10 : R06.1 03/18/2017 Visit Diagnosis Plan: Chronic obstructiv e pulmonary disease with (acute) exacerbation Discussion: Finish prednisone Continue S VNS with albuterol ICD-9 : 491.21 ICD-10 : J44.1 03/18/2017 Appointment: Belia Reid WPtel: [address] [place] [address] ER Follow UP 03/18/2017 Patient Education: Patient [...] : E11.65 02/27/2017 Appointment: Belia Reid WPtel: [phone] [place] [id number] FOLLOW UP 02/27/2017 Patient Education: Patient Medication [...] ICD-10 : E11.65 02/22/2017 Appointment: Pattie Sotomayor [address] [place] [address] ACUTE ILLNESS 02/22/2017 Patient Education: Patient Medication [...] J18.9 01/23/2017 Appointment: Belia Reid WPtel: [phone] [facility] ER Follow UP 01/23/2017 Patient Education: Patient Medication Summary Completed 01/23/2017 Appointment: Pattie Sotomayor [address] [facility] CANCELED 01/17/2017 Appointment: Pattie Sotomayor [address] [facility] Annual Well Visit 01/14/2017 Visit Diagnosis Plan: Localized edema Discussion: Low Na diet Compression socks/Elevate feet ICD-9 : 782.3 ICD-10 : R60.0 12/20/2016 Visit Diagnosis Plan: Type 2 diabetes mellitus with hy perglycemia Discussion: Check CMP, HbA1C Flu shot and Prevnar 13 given Follow Up: 3 months ICD-9 : 250.02 ICD-10 : E11.65 12/20/2016 Appointment: Belia Reidtel: [address] [facility] FOLLOW UP 12/20/2016 Patient Education: Patient Medication Summary Completed 12/20/2016 Patient Education: Patient Medication Summary Completed 10/10/2016 Visit Plan: Xrays of cervical, thoracic and lumbar spine at ER[facility] for Mobic (stop NSAIDS except Tylenol) and Flexeril UA sent for C&S Using SVN Call in 2-3 days if pain not improved or any worsening 10/08/2016 Appointment: Celeste Ferreira WPtel: [phone] [facility] [address] ACUTE ILLNESS 10/08/2016 Patient Education: Patient Medication [...] 250.02 ICD-10 : E11.65 09/19/2016 Appointment: Belia Reidl: [address] [place], [place] [address] 09/18 confirmed`sl FOLLOW UP 09/19/2016 Patient Education: [...] : R10.84 08/20/2016 Appointment: Belia Reid WPtel: [address] [place], [place] [address] 08/16 confirmed~sl FOLLOW UP 08/20/2016 Patient Education: [...] : J44.9 06/19/2016 Appointment: Belia Reid WPtel: [address] [place], [place] [address] 06/18 confirmed ~ Hospital Follow Up 06/19/2016 [...] : Z87.440 06/04/2016 Appointment: Belia Reid WPtel: [address] [place], [place] [phone] 06/01 confirmed~ FOLLOW UP 06/04/2016 Patient Education: Patient Medication [...] : R06.1 05/02/2016 Appointment: Belia Reid WPtel: [address] [place] [address] 05/01 confirmed ~ Hospital Follow Up 05/02/2016 Patient Education: Patient [...] : N39.0 04/03/2016 Appointment: Belia Reid WPtel: [address] [place], [place] [phone] 04/02 confirmed~ Hospital Follow Up 04/03/2016 Patient Education: Patient Medication Summary Completed 04/03/2016 Visit Plan: Lungs are clear Her symptoms and exam are all upper airway restriction/constriction Can try supportive care Rx as above Follow up PRN 02/29/2016 Appointment: Lidia Hwang [address] [place], [place] [address] ACUTE ILLNESS 02/29/2016 Patient Education: Patient Medication Summary Completed 02/29/2016 Visit Plan: Toradol/Phenergan today for Migraine Change to Clindamycin to cover lactobacillus for UTI Cover with flagyl due to hx of C. Diff 02/02/2016 Appointment: Belia Reid WPtel: [address] [place], [place] [phone] 01/31 confirmed`sl ACUTE ILLNESS 02/02/2016 Patient Education: Patient Medication Summary Completed 02/02/2016 Visit Plan: Increase neurontin to 300mg q AM and 600mg q PM Discussed neurology re-evaluation Flu shot given Need to check on Pneumonia shot Rx written out for albuterol 01/05/2016 Appointment: Belia Reid WPtel: [address] [place] [address] 01/03 confirmed ~sl Annual Well Visit 01/05/2016 Patient Education: Patient Medication Summary Completed 01/05/2016 Visit Plan: Cipro Culture urine hydrate Flexeril refilled Alternate heat and ice for back Increase gabapentin to 300mg po BID Notify if worsens 12/05/2015 Appointment: Belia Reid WPtel: [address] [place], [place] [phone] 11/30 confirmed~sl ACUTE ILLNESS 12/05/2015 Patient Education: Patient Medication Summary Completed 12/05/2015 Patient Education: Patient Medication Summary Completed 10/27/2015 Care Plan: [place] : [address]-0 Pending 10/27/2015 Care Plan: A1C HPLC LOINC : 20924-6 Pending 10/27/2015 Visit Plan: Lungs are CTA today and is f eeling improved overall Finish meds as ordered Continue inhalers and neb treatments Discussed migraine treatment options She does not feel she needs anything additional added today Refill of Januvia sent since no samples are available today 10/26/2015 Appointment: Lidia Hwang [address] [place], [place] [address] Hospital Follow Up 10/26/2015 Appointment: Lidia Hwang [address] [place], [place] [address] [place] CANCELED 10/26/2015 Patient Education: Patient Medication Summary Completed 10/26/2015 Patient Education: Natalia Shin 18+ - KENNETH - No [place] Completed 10/26/2015 Visit Plan: Office dip still abnormal Cu lture pending Switch to cipro - stop macrobid Push fluids - avoid caffeine Will call with culture results when available Follow up if worsening 10/05/2015 Appointment: Lidia Hwang [address] [facility] [address] ER Follow UP 10/05/2015 Patient Education: Patient Medication Summary Completed 10/05/2015 Visit Plan: Proceed with PT for document ation of ROM and strength of all extremities Proceed with Power Mobility Device Trial of neurontin 300mg q HS--lyrica helped but patient unable to afford Recheck 1month 09/15/2015 Appointment: Belia Reid WPtel: [address] [place], [place] [phone] 09/13 confirmed~sl SPECIAL 09/15/2015 Patient Education: Patient Medication Summary Completed 09/15/2015 Visit Plan: Fille out Loan Discharge Pap erwork for total and permanent disability 08/25/2015 Patient Education: Patient Medication Summary Completed 08/25/2015 Visit Plan: Discussed with Dr Anushka Haywood at [facility] of head Will 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 and update if needed 08/24/2015 Appointment: Lidia Hwang [address] [place], [place] [phone] 08/22 confirmed~sl ACUTE ILLNESS 08/24/2015 Patient Education: Patient Medication Summary Completed 08/24/2015 Patient Education: Patient Medication Summary Completed 08/24/2015 Care Plan: US EXAM OF HEAD AND NECK carotid Ultrasound LOIN C : 76420-7 Pending 08/24/2015 Visit Plan: Long discussion about diet A ccuchecks daily Check HbA1C, CMP Change requip to mirapex 07/05/2015 Appointment: Belia Reid WPtel: [place] 07/03 confirmed ~sl FOLLOW UP 07/05/2015 Patient Education: Patient Medication Summary Completed 07/05/2015 Visit Plan: Add Breo ellipta 100 1 p BID Continue SVNs with duoneb QID 06/06/2015 Appointment: Belia Reid WPtel: [address] [place], [place] [phone] Patient is calling for a ride, then retu rning our call.-sp 06/01 called and patient stated she will know saturday if she can get a ride~sl 06/05 - Hospital Follow Up 06/06/2015 Patient Education: Patient [...] not improving 05/23/2015 Appointment: Huong Osborne WPtel: [address] [place], [place] [phone] ACUTE ILLNESS 05/23/2015 Appointment: Lidia Hwang [address] [place], [place] [phone] ER Follow UP 05/23/2015 Patient Education: Patient Medication Summary Completed 05/23/2015 Visit Plan: Check pancreatic enzymes and US of pancreas as patient can't understand why she has diabetes since has no family history Discussed weight, diet, exercise all play an important role in diabetes and are risk factors as well Continue Januvia and accuchecks daily 05/05/2015 Appointment: Belia Reid WPtel: [address] [place], [place] [phone] FOLLOW UP 05/05/2015 Patient Education: Patient Medication Summary Completed 05/05/2015 Care Plan: US EXAM ABDOM COMPLETE LOINC : 51862-2 Ordered 05/05/2015 Visit Plan: Start Januvia 100mg daily [place] with diflucan and culture urine Accuchecks daily alternating times Recheck 6weeks 03/30/2015 Appointment: Belia Reid WPtel: [address] [place], [place] [phone] 03/29 confirmed~lb FOLLOW UP 03/30/2015 Patient Education: Patient Medication Summary Completed 03/30/2015 Appointment: Belia Reid WPtel: [address] [place] [address] 03/01 needs reschedule due to payment and insurance ~sl FOLLOW UP 03/02/2015 Visit Plan: Patient was just in ER last night so has not filled scripts yet Start Carafate and Flagyl and Cipro Add Hyophen 1 po BID Recheck 1mo 02/03/2015 Appointment: Belia Reid WPtel: [address] [place] [address] 02/02lm ~sl...02/03/15 appt confirmed cn ACUTE I LLNESS 02/03/2015 Patient Education: Patient Medication Summary Completed 02/03/2015 Visit Plan: Warm soaks to vaginal area K elex and Diflucan and observe Zofran to use prn 12/29/2014 Appointment: Belia Reid WPtel: [address] [place], [place] [phone] 12/28 Confirmed ~sl ACUTE ILLNESS 12/29/2014 Patient Education: Patient Medication Summary Completed 12/29/2014 Appointment: Huong Osborne WPtel: [address] [place] [address] FOLLOW UP 09/24/2014 Appointment: Belia Reid WPtel: [address] [place], [place] [phone] 09/15 confirmed -mf FOLLOW UP 09/16/2014 Visit Plan: Increase requip to 2mg po BI D Increase lyrica to 225mg total a day by adding an extra 75mg in AM Recheck in 2weeks Continue to patch left eye while sleeping 09/02/2014 Appointment: Belia Reid WPtel: [address] [place], [place] [phone] [place] 09/01 appt confirmed cn Hospital Follow Up 09/02 Patient Education: Patient Medication Summary Completed 09/02/2014 Visit Plan: To [facility] for observat ion to R/O CVA 08/25/2014 Appointment: Huong Osborne WPtel: [address] [place], [place] [phone] ACUTE ILLNESS 08/25/2014 Patient Education: Patient Medication Summary Completed 08/25/2014 Referral: Aaron Jonas WPtel: [facility] [place] [id number] [facility], [id number] [place] In [place] location Initiated 04/26/2014 Referral: Brian Srinivasan WPtel: [id number] Referral Initiated 04/20/2014 Appointment: Belia Reid WPtel: [address] [place], [place] [phone] ER Follow UP 04/01/2014 Patient Education: Patient Medication Summary Completed 04/01/2014 Care Plan: MYELOGRAPHY NECK SPINE LOINC : 88885-5 Ordered 04/01/2014 Visit Plan: Continue Symbicort 160 at 2p BID Continue SVNs with duoneb at least QID Finish Levaquin Recheck 1mo on lyrica 03/16/2014 Appointment: Belia Reid WPtel: [address] [place], [place] [phone] 03/15 voicemail FOLLOW UP 03/16/2014 Patient Education: Patient Medication Summary Completed 03/16/2014 Visit Plan: Restart SVNs with duoneb QID Repeat prednisone Levaquin Continue symbicort Keep lyrica at same dose Recheck 1week 03/09/2014 Appointment: Belia Reid WPtel: [address] [place], [place] [phone] FOLLOW UP 03/09/2014 Patient Education: Patient Medication Summary Completed 03/09/2014 Appointment: Belia Reid WPtel: [address] [place], [place] [phone] 03/03 showed up 15 minutes late for appt -- put her on Huong's side for 10:45am FORGIVEN PER DR FOLLOW UP 03/03/2014 Appointment: Huong Osborne WPtel: [address] [place], [place] [phone] FOLLOW UP 03/03/2014 Patient Education: Patient Medication Summary Completed 03/03/2014 Appointment: Huong Osborne WPtel: [address] [place], [place] [phone] ER Follow UP 03/01/2014 Patient Education: Patient Medication Summary Completed 03/01/2014 Visit Plan: Add carafate for this next m onth Increase lyrica to 150mg q HS 02/09/2014 Appointment: Belia Reid WPtel: [address] [place], [place] [phone] [place] [address] Follow Up 02/09/2014 Patient Education: Patient Medication Summary Completed 02/09/2014 Visit Plan: Increase omeprazole back to 40mg po BID Use requip in AM and add lyrica 75mg q HS Recheck 1mo 12/23/2013 Appointment: Belia Reid WPtel: [address] [place], [place] [phone] FOLLOW UP 12/23/2013 Patient Education: Patient Medication Summary Completed 12/23/2013 Patient Education: Patient Medication Summary Completed 12/04/2013 Appointment: Belia Reid WPtel: [address] [place], [place] [phone] [facility] 10/30/2013 Patient Education: Patient Medication Summary Completed 10/30/2013 Appointment: Belia Reid WPtel: [address] [place], [place] [phone] [place] [address] 10/21/2013 Patient Education: Patient Medication Summary Completed 10/21/2013 Visit Plan: Cryotherapy as above TAC and hydroxyzine to use prn to itching spots and itching SKs Add Advair HFA 115/21 1 p BID 10/05/2013 Appointment: Belia Reid WPtel: [address] [place], [place] [phone] 10/01 pt called and confirmed ACUTE ILLNESS Patient Education: Patient Medication Summary Completed 10/05/2013 Appointment: Belia Reid WPtel: [address] [place], [place] [phone] [place] will pay copay and part of past balance FOLLOW U P 08/04/2013 Patient Education: Patient Medication Summary Completed 08/04/2013 Appointment: Belia Reid WPtel: [address] [place], [place] [phone] [place] INJECTION 07/13/2013 Patient Education: Patient Medication Summary Completed 07/13/2013 Appointment: Huong Osborne WPtel: [address] [place], [place] [phone] [place] ACUTE ILLNESS 07/03/2013 Patient Education: Patient Medication Summary Completed 07/03/2013 Visit Plan: Cipro and culture urine 05/27/2013 Appointment: Huong Osborne WPtel: [address] [place], [place] [address] 05/26 confirmed appt and notified that balance and helicopter officer y is due at appt time FOLLOW UP 05/27/2013 Patient Education: Patient Medication Summary Completed 05/27/2013 Appointment: Belia Reid WPtel: [address] [place], [place] [address] [place] UA 05/25/2013 Patient Education: Patient Medication Summary Completed 05/25/2013 Appointment: Belia Reid WPtel: [address] [place], [place] [address] [place] INJECTION 05/04/2013 Patient Education: Patient Medication Summary Completed 05/04/2013 Appointment: Belia Reid WPtel: [address] [place], [place] [phone] US INJECTION 04/17/2013 Patient Education: Patient Medication Summary Completed 04/17/2013 Appointment: Belia Reid WPtel: [address] [place], [place] [phone] US INJECTION 04/15/2013 Appointment: Belia Reid WPtel: [address] [place], [place] [phone] 04/02 FOLLOW UP 04/06/2013 Patient Education: Patient Medication Summary Completed 04/06/2013 Visit Plan: Obtain lab results including UA from [facility] 11/10/2012 Appointment: Belia Reid WPtel: [address] [place] [address] ER Follow UP 11/10/2012 Patient Education: Patient Medication Summary Completed 11/10/2012 Appointment: Belia Reid WPtel: [address] [place] [address] 10/30/12 patient canceled appt due to fin ances. Offered to work something out, patient declined-LB FOLLOW UP 11/05/2012 Visit Plan: Continue Bystolic at current dose Pt has fwup with Neurology on September 16 09/02/2012 Appointment: Belia Reid WPtel: [address] [place] [address] FOLLOW UP 09/02/2012 Patient Education: Patient Medication Summary Completed 09/02/2012 Visit Plan: Continue bystolic at 5mg chris ly Sees Neurology tomorrow Use oxygen at bedtime 08/04/2012 Appointment: Belia Reid WPtel: [address] [place] [address] FOLLOW UP 08/04/2012 Patient Education: Patient Medication Summary Completed 08/04/2012 Appointment: Belia Reid WPtel: [address] [place] [address] has Hospital fwup for 07/21/12. merged appointments FOLLOW UP 07/24/2012 Visit Plan: Start Bystolic 5mg daily for tachycardia Fwup with neurology for further workup Overnight O2 sat 07/21/2012 Appointment: Belia Reid WPtel: [address] [place], [place] [phone] Hospital Follow Up 07/21/2012 Patient Education: Patient Medication Summary Completed 07/21/2012 Visit Plan: SVN with Albuterol QID Add A velox 400mg daily Notify if worsens or persists 07/02/2012 Appointment: Belia Reidtel: [address] [place], [place] [phone] ACUTE ILLNESS 07/02/2012 Patient Education: Patient Medication Summary Completed 07/02/2012 Appointment: Belia Reid WPtel: [address] [place], [place] [phone] INJECTION 06/25/2012 Patient Education: Patient Medication Summary Completed 06/25/2012 Appointment: Belia Reid WPtel: [address] [place], [place] [phone] FOLLOW UP 06/24/2012 Patient Education: Patient Medication Summary Completed 06/24/2012 Appointment: Belia Reid WPtel: [address] [place], [place] [phone] 05/19 left [facility] [place] FOLLOW UP 05/20/2012 Patient Education: Patient Medication Summary Completed 05/20/2012 Visit Plan: DC Neurontin--discussed that this may be causing some of symptoms Also discussed that stress is likely contributing factor Discussed that may be going through withdrawal from stopping pain meds cold turkey--pt states stopped meds 2wks ago do to not helping Increase Buspar to 10mg po TID 05/08/2012 Appointment: Belia Reid WPtel: [address] [place], [place] [phone] ACUTE ILLNESS 05/08/2012 Patient Education: Patient Medication Summary Completed 05/08/2012 Visit Plan: Continue current meds Contin ue lower dose on pain meds and Diazepam Still waiting on paperwork for botox for Migraines Will restart Neurontin at 600mg po q HS Pt going to stop Depakote due to can't afford 04/22/2012 Appointment: [facility] [phone] [id number] [facility] Follow Up 04/22/2012 Patient Education: Patient Medication Summary Completed 04/22/2012 Visit Plan: Injection to shoulder as abo ve Continue current meds Has appointment with neurology on HAs in 02/13/2012 Appointment: Belia Reid WPtel: [address] [place], [place] [id number] Pt does not have $10 copay at [facility] t time - will bring it in next week. Kianna iqbal'ed this. - [place] FOLLOW UP 02/13/2012 Patient Education: Patient Medication Summary Completed 02/13/2012 Visit Plan: Proceed with headache specia list Change nexium to Protonix Phenergan to use prn Sumatriptan to use prn Pt still on Inderal 01/28/2012 Appointment: Belia Reid WPtel: [address] [place], [place] [phone] ER Follow UP 01/28/2012 Patient Education: Patient [...] for sleep 12/26/2011 Appointment: Belia Reid WPtel: [address] [place], [place] [phone] 12/24- appt. confirmed FOLLOW UP 2 Patient Education: Patient Medication Summary Completed 12/26/2011 Appointment: Belia Reid WPtel: [address] [place], [place] [phone] [place] FOLLOW UP 11/14/2011 Patient Education: Patient Medication Summary Completed 11/14/2011 Appointment: Belia Reid WPtel: [facility] [place], [place] [phone] FOLLOW UP 09/12/2011 Patient Education: Patient Medication Summary Completed 09/12/2011 Visit Plan: Supportive care Decrease Liseth catalino to 50mg q HS Decrease AM dose of Valium to 5mg q HS Use Endocet sparingly 08/15/2011 Appointment: Belia Reid WPtel: [address] [place], [place] [phone] ER Follow UP 08/15/2011 Patient Education: Patient Medication Summary Completed 08/15/2011 Appointment: Belia Reid WPtel: [address] [place], [place] [phone] [place] Spoke directly to patient yesterday and confirmed the appoin tment. ACUTE ILLNESS 08/09/2011 Patient Education: Patient Medication Summary Completed 08/09/2011 Appointment: Belia Reid WPtel: [address] [place], [place] [phone] Hospital Follow Up 07/03/2011 Patient Education: Patient Medication Summary Completed 07/03/2011 Appointment: Belia Reid WPtel: [address] [place], [place] [phone] FOLLOW UP 06/04/2011 Patient Education: Patient Medication Summary Completed 06/04/2011 Visit Plan: Pt. wants "allergy shot" but in fact wants steroid shot. Will take a break from "generic Zyrtec they are getting from [facility]" and try Singulair for 2 weeks. 05/03/2011 Appointment: Iraida Jones WPtel: [address] [place], [place] [phone] ACUTE ILLNESS 05/03/2011 Patient Education: Patient Medication Summary Completed 05/03/2011 Visit Plan: Neurontin 400mg q HS for 1we ek then 800mg q HS Decrease requip to 1mg q HS for 2wks then stop Fwup 2mos 04/05/2011 Appointment: Belia Reid WPtel: [address] [place], [place] [phone] FOLLOW UP 04/05/2011 Patient Education: Patient Medication Summary Completed 04/05/2011 Visit Plan: Trial of neurontin in 2wks C rahul current meds for stomach Pt has procedure with Dr. Ortiz next week for stone removal 03/08/2011 Appointment: Belia Reid WPtel: [address] [place], [place] [phone] Hospital Follow Up 03/08/2011 Patient Education: Patient Medication Summary Completed 03/08/2011 Appointment: Belia Reid WPtel: [address] [place], [place] [phone] FOLLOW UP 02/19/2011 Visit Plan: reports increased [...] with Flagyl 01/24/2011 Appointment: Iraida Jones WPtel: [address] [place] [address] ACUTE ILLNESS 01/24/2011 Patient Education: Patient Medication Summary Completed 01/24/2011 Appointment: Belia Reid WPtel: [address] [place], [place] [phone] FOLLOW UP 01/02/2011 Patient Education: Patient Medication Summary Completed 01/02/2011 Appointment: Belia Reid WPtel: [address] [place], [place] [phone] FOLLOW UP 12/12/2010 Appointment: Belia Reid WPtel: [address] [place], [place] [phone] ACUTE ILLNESS 12/07/2010 Patient Education: Patient Medication Summary Completed 12/07/2010 Visit Plan: Increase Buspar to 10mg po B ID 11/16/2010 Appointment: Belia Reid WPtel: [address] [place], [place] [phone] FOLLOW UP 11/16/2010 Patient Education: Patient Medication Summary Completed 11/16/2010 Appointment: Iraida Jones WPtel: [address] [place], [place] [phone] ER Follow UP 11/02/2010 Patient Education: Patient Medication Summary Completed 11/02/2010 Visit Plan: Depo-Medrol/Kenalog given fo r allergies Add BuSpar for anxiety Oxycodone one p.o. q.i.d. for number 120 refilled 10/18/2010 Appointment: Belia Reid WPtel: [address] [place] [address] FOLLOW UP 10/18/2010 Patient Education: Patient Medication Summary Completed 10/18/2010 Visit Plan: Continue current meds Discus sed epidurals for back vs PT--will proceed with epidurals to thoracolumbar region to see if helps with pain 09/19/2010 Appointment: Belia Reid WPtel: [address] [place], [place] [phone] FOLLOW UP 09/19/2010 Patient Education: Patient Medication Summary Completed 09/19/2010 Visit Plan: DC MS contin Check CT scan t horacic spine Fwup pending above results 09/06/2010 Appointment: Belia Reid WPtel: [address] [place], [place] [phone] FOLLOW UP 09/06/2010 Patient Education: Patient Medication Summary Completed 09/06/2010 Visit Plan: Continue current meds Restar t MS contin 15mg po BID and use oxycodone prn Use daily senokot-s 2 po BID 08/10/2010 Appointment: Belia Reid WPtel: [address] [place], [place] [phone] [place] FOLLOW UP 08/10/2010 Patient Education: Patient Medication Summary Completed 08/10/2010 Visit Plan: Depomedrol/Kenalog given Pt sees ENT later this month Cont current meds Mammo scheduled 05/11/2010 Appointment: Belia Reid WPtel: [address] [place], [place] [phone] FOLLOW UP 05/11/2010 Patient Education: Patient Medication Summary Completed 05/11/2010 Appointment: Belia Reid WPtel: [address] [place], [place] [phone] [place] [address] 05/04/2010 Patient Education: Patient Medication Summary Completed 05/04/2010 Visit Plan: Pt sent to lab for UA 04/28/2010 Appointment: Belia Reid WPtel: [address] [place] [address] 04/28/2010 Patient Education: Patient Medication Summary Completed 04/28/2010 Visit Plan: Check CT angiogram of chest Restart Advair Use proair prn Cont current meds Fwup with Card as schedulec 04/06/2010 Appointment: Belia Reid WPtel: [address] [place] [address] Follow Up 04/06/2010 Patient Education: Patient Medication Summary Completed 04/06/2010 Visit Plan: Paperwork filled out for pow erchair Depomedrol/kenalog given Pt sees ENT in 2wks to assess nasal obstruction problems 02/09/2010 Appointment: Belia Reid WPtel: [address] [place] [address] ESTABLISHED PATIENT 02/09/2010 Patient Education: Patient Medication Summary Completed 02/09/2010 Visit Plan: Change Elavil to Trazadone 1 50mg q HS Diflucan and nystatin for tinea cruris 01/05/2010 Appointment: Belia Reid WPtel: [address] [place] [address] FOLLOW UP 01/05/2010 Patient Education: Patient Medication Summary Completed 01/05/2010 Appointment: Belia Reid WPtel: [address] [place] [address] FOLLOW UP 12/07/2009 Patient Education: Patient Medication Summary Completed 12/07/2009 Appointment: Belia Reid WPtel: [address] [place] [address] FOLLOW UP 11/22/2009 Visit Plan: Cont current meds and await MRI results from Dr. Meadows's office and his final recommendations Will need to follow-up at later date on deviated septum 11/08/2009 Appointment: Belia Reid WPtel: [address] [place] [address] FOLLOW UP 11/08/2009 Patient Education: Patient Medication Summary Completed 11/08/2009 Visit Plan: Cont PT/OT See Neurosurgery Cont Tortoise shell brace 10/24/2009 Appointment: Belia Reid WPtel: [address] [place] [address] FOLLOW UP 10/24/2009 Patient Education: Patient Medication Summary Completed 10/24/2009 Appointment: Belia Reid WPtel: [address] [place] [address] Hospital Follow Up 10/17/2009 Appointment: Belia Reid WPtel: [address] [place] [address] ACUTE ILLNESS 07/25/2009 Patient Education: Patient Medication Summary Completed 07/25/2009 Appointment: Belia Reid WPtel: [address] [place] [address] FOLLOW UP 05/26/2009 Patient Education: Patient Medication Summary Completed 05/26/2009 Referral: Chino Balderas WPtel: [facility] [address] Referral Initiated Referral: Merry Vale WPtel: [facility] [id number] Vale will review referral and book appointment Completed Referral: Francisco Javier Yoder WPtel: [phone] [id number] Patient needs EGD insurance will not inc rease a medication unless this procedure results show a need Completed Referral: Francisco Javier Yoder WPtel: [phone] [id number] [place] Referral Historical Reference Referral: Francisco Javier Yoder WPtel: [phone] [id number] [place] Referral Initiated Instructions Comment . 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 Long discussion [...] from "generic Zyrtec they are getting from [facility]" and try Singulair for 2 weeks. . [...] cancerous cells. Clindamycin as last report indicated Hong will try Clindamycin as not having success with Flagyl . Increase Buspar to 10mg po BID . Depo-Medrol/Kenalog given for allergie s Add BuSpar for anxiety Oxycodone one p.o. [...]
--- OUTSIDE RECORDS SUMMARY | 2019-06-23 17:48 | XMS REPORT | CCD ---
Author Author Diana Reid D.O. Organization [facility] Address [address] [place] [address] Phone Care Team Providers Care Vender Name Role Phone Belia Reid D.O., PP Unavailable CCM Unavailable Summary Purpose Interface Exchange Insurance Providers Payer name Policy type / Coverage type Covered republican ID Effective Begin Date Effective End Date [employer] MEDICARE Medicare Part B [id number] 2019 Unknown Family History Family History data not found Social History Social History Element Codes Description Effective Dates Tobacco history SNOMED CT: 042042705 Nonsmoker 09/13/2010 Allergies, Adverse Reactions, Alerts Substance Reaction Codes Entered Date Inactivated Date Status Eggs reaction [id number] 09/15/2015 No Inactive Date Active _ Unknown [...] Fill Instructions Vancocin 125 mg capsule RxNorm: 726724 1 Capsule(s) Oral four t imes a day 06/08/2019 06/18/2019 Active diltiazem CD 240 mg capsule,extended release 24 hr RxNorm: 8 70168 1 Capsule(s) Oral QD 05/26/2019 11/21/2019 Active omeprazole 40 mg capsule,delayed release RxNorm: 717592 1 Capsule(s) Oral two times a day 05/26/2019 11/21/2019 Active Flagyl 500 mg tablet RxNorm: 752844 1 Tablet(s) Oral three time s a day 05/26/2019 06/05/2019 Inactive Cipro 250 mg tablet RxNorm: 312650 1 Tablet(s) Oral two times a day 05/26/2019 06/02/2019 Inactive hydroxyzine HCl 25 mg tablet RxNorm: 600190 1 Tablet(s) Oral QPM for itching/aniety 05/21/2019 06/27/2019 Active metoprolol tartrate 25 mg tablet RxNorm: 953637 1 Table t(s) Oral two times a day 05/21/2019 08/19/2019 Active hydroxyzine HCl 25 mg tablet RxNorm: 888871 1 Tablet(s) Oral QPM for itching/aniety 05/13/2019 05/20/2019 Inactive Singulair 10 mg tablet RxNorm: 095999 1 Tablet(s) Oral QPM 05/06/19 20 05/12/2019 Inactive gabapentin 600 mg tablet RxNorm: 623960 1 Tablet(s) Oral QD 020 06/05/2019 Inactive Valium 5 mg tablet RxNorm: 707463 1 Tablet(s) Oral QPM for stri joao/muscle spasm 04/29/2019 05/29/2019 Inactive baclofen 10 mg tablet RxNorm: 947196 1 Tablet(s) Oral QPM for s pasm/neck pain 04/24/2019 05/23/2019 Inactive baclofen 10 mg tablet RxNorm: 906112 1 Tablet(s) Oral QPM for s pasm/neck pain 04/24/2019 04/23/2019 Inactive Novolin N NPH U-100 Insulin isophane 100 unit/mL subcu taneous susp RxNorm: 591363 23 Unit(s) Subcutaneous two times a day 04/20/2019 No Stop Date A ctive cyclobenzaprine 5 mg tablet RxNorm: 320889 1 Tablet(s) Oral three times a day as needed 04/16/2019 04/23/2019 Inactive hydroxyzine HCl 25 mg tablet RxNorm: 089557 1 Tablet(s) Oral three times a day for itching/aniety 04/08/2019 05/12/2019 Inactive gabapentin 600 mg tablet RxNorm: 082837 1 Tablet(s) Oral two ti mes a day 04/08/2019 05/05/2019 Inactive gabapentin 600 mg tablet RxNorm: 136651 1 Tablet(s) Oral two ti mes a day 04/08/2019 04/07/2019 Inactive Novolin N NPH U-100 Insulin isophane 100 unit/mL subcu taneous susp RxNorm: 079628 10 Unit(s) Subcutaneous two times a day 03/03/2019 04/19/2019 I nactive gabapentin 300 mg capsule RxNorm: 475739 1 Capsule(s) O ral every night at bedtime for neuropathy 02/26/2019 04/07/2019 Inactive gabapentin 300 mg capsule RxNorm: 446943 1 Capsule(s) O ral every night at bedtime for neuropathy 02/20/2019 02/25/2019 Inactive pramipexole 1 mg tablet RxNorm: 373261 1 Tablet(s) Oral QPM FOR RESTLESS LEGS (REPLACES REQUIP) 02/12/2019 02/07/2020 Active buspirone 5 mg tablet RxNorm: 999418 TAKE 1 TABLET THREE TIMES MILDRED Y 02/12/2019 05/12/2019 Inactive Lexapro 10 mg tablet RxNorm: 305743 TAKE 1 TABLET EVERY DAY FOR MOO D 01/31/2019 No Stop Date Active Ativan 0.5 mg tablet RxNorm: 352590 TAKE 1 TABLET BY MO UTH THREE TIMES DAILY NEEDED FOR ANXIETY 01/26/2019 04/28/2019 Inactive Ativan 0.5 mg tablet RxNorm: 152121 TAKE 1 TABLET BY MO UTH THREE TIMES DAILY NEEDED FOR ANXIETY 01/05/2019 01/05/2019 Inactive Levaquin 500 mg tablet RxNorm: 023097 1 Tablet(s) Oral QD 12/25/2018 12/24/2018 Inactive Levaquin 500 mg tablet RxNorm: 260364 1 Tablet(s) Oral QD 12/25/2018 01/04/2019 Inactive baclofen 10 mg tablet RxNorm: 921792 1 Tablet(s) Oral three maico es a day 11/20/2018 01/19/2019 Inactive Ativan 0.5 mg tablet RxNorm: 871407 TAKE 1 TABLET BY MO UTH THREE TIMES DAILY NEEDED FOR ANXIETY 11/20/2018 01/04/2019 Inactive gabapentin 300 mg capsule RxNorm: 691556 1 Capsule(s) O ral every night at bedtime for neuropathy 11/20/2018 12/20/2018 Inactive Lexapro 10 mg tablet RxNorm: 211195 1 Tablet(s) PO QD for mood 07/201801/30/2019 Inactive Zithromax Z-Lj 250 mg tablet RxNorm: 214882 Tablet(s) PO take as directed 11/04/2018 11/19/2018 Inactive Insulin Syringe 1 mL 29 gauge x 1/2" RxNorm: 2 s yringes daily with insulin Dx: E11.65 10/08/2018 No Stop Date Active gabapentin 300 mg capsule RxNorm: 858269 1 Capsule(s) PO QHS fo r neuropathy 09/18/2018 10/17/2018 Inactive cyclobenzaprine 5 mg tablet RxNorm: 034163 1 Tablet(s) PO TID a s needed 09/09/2018 09/08/2018 Inactive cyclobenzaprine 5 mg tablet RxNorm: 713276 1 Tablet(s) PO TID a s needed 09/09/2018 10/08/2018 Inactive prednisone 20 mg tablet RxNorm: 858499 1 Tablet(s) PO QD 09/08/2018 0 09/12/2018 Inactive Lantus Solostar U-100 Insulin 100 unit/mL (3 mL) subcu taneous pen RxNorm: 619773 55 Unit(s) SQ QAM 08/28/2018 11/03/2018 Inactive hydroxyzine HCl 25 mg tablet RxNorm: 027299 1 Tablet(s) PO QHS for itching 08/20/2018 05/12/2019 Inactive Lexapro 10 mg tablet RxNorm: 382434 1 Tablet(s) PO QD for mood 08/0210/18/2018 Inactive sumatriptan 100 mg tablet RxNorm: 703916 1 Tablet(s) PO at headache onset. May repeat 1 in two hours if headache remains. Max of 2 per 24 hours 04/02/2018 05/20/2018 Inactive Diflucan 150 mg tablet RxNorm: 986839 1 Tablet(s) PO QD 03/18/2018 Inactive Diflucan 150 mg tablet RxNorm: 544088 1 Tablet(s) PO QD 03/18/2018 Inactive Flagyl 500 mg tablet RxNorm: 068612 1 Tablet(s) PO TID 03/17/2018 Inactive Levaquin 500 mg tablet RxNorm: 705086 1 Tablet(s) PO QD 03/17/2018 Inactive Levaquin 500 mg tablet RxNorm: 411872 1 Tablet(s) PO QD 03/17/2018 Inactive Flagyl 500 mg tablet RxNorm: 404942 1 Tablet(s) PO TID 03/17/2018 Inactive ketoconazole 200 mg tablet RxNorm: 191119 1 Tablet(s) PO QD 019 03/19/2018 Inactive Celebrex 200 mg capsule RxNorm: 504272 1 Capsule(s) PO BID 02/06/2005/20/2018 Inactive tramadol 50 mg tablet RxNorm: 853217 1 Tablet(s) PO TID as needed 1 04/08/2017 05/20/2018 Inactive gabapentin 300 mg capsule RxNorm: 056511 1 Capsule(s) PO BID 201705/20/2018 Inactive Diflucan 150 mg tablet RxNorm: 664019 1 Tablet(s) PO QD 01/20/2018 Inactive pramipexole 1 mg tablet RxNorm: 899506 1 Tablet(s) PO Q PM FOR RESTLESS LEGS (REPLACES REQUIP) 01/08/2018 02/11/2019 Inactive cyclobenzaprine 10 mg tablet RxNorm: 144031 1 Tablet(s) PO TID as needed for muscle spasm 12/17/2017 05/20/2018 Inactive pramipexole 1 mg tablet RxNorm: 734840 TAKE 1 TABLET BY MOUTH ONCE DAILY IN THE EVENING FOR RESTLESS LEGS (REPLACES REQUIP) 12/04/2017 01/05/2018 Inac tive Amaryl 4 mg tablet RxNorm: 864150 1 Tablet(s) PO BID replaces 2mg 0 11/05/2017 12/16/2017 Inactive Singulair 10 mg tablet RxNorm: 674830 1 Tablet(s) PO QHS for al lergies/lungs 10/30/2017 12/16/2017 Inactive Diflucan 100 mg tablet RxNorm: 272115 1 Tablet(s) PO QD 10/23/2017 Inactive Ativan 0.5 mg tablet RxNorm: 113043 TAKE 1 TABLET BY MOUTH THRE E TIMES DAILY 08/30/2017 11/20/2018 Inactive buspirone 5 mg tablet RxNorm: 318532 1 Tablet(s) PO TID 07/11/2017 Inactive propranolol 60 mg tablet RxNorm: 546348 1 Tablet(s) PO BID repl aces 40mg dose 06/26/2017 12/16/2017 Inactive Amaryl 4 mg tablet RxNorm: 171259 1 Tablet(s) PO BID replaces 2mg 0 06/12/2017 11/05/2017 Inactive omeprazole 40 mg capsule,delayed release RxNorm: 172411 1 Capsule(s) PO BID TAKE ONE CAPSULE BY MOUTH TWICE DAILY 05/30/2017 11/25/2017 Inactive pramipexole 1 mg tablet RxNorm: 632609 1 Tablet(s) PO Q PM for restless legs--replaces requip 05/30/2017 11/25/2017 Inactive amitriptyline 50 mg tablet RxNorm: 607332 1 Tablet(s) PO QHS 201709/16/2017 Inactive Diflucan 100 mg tablet RxNorm: 600902 1 Tablet(s) PO BID 05/07/2017 0 05/20/2017 Inactive nystatin (bulk) 100 million unit powder RxNorm: Application TO P BID 05/07/2017 05/20/2018 Inactive cholestyramine (with sugar) 4 gram oral powder RxNorm: 016467 1 Unit Dose PO QD 05/07/2017 01/20/2018 Inactive Ativan 0.5 mg tablet RxNorm: 905040 TAKE ONE TABLET BY MOUTH TH REE TIMES DAILY 05/01/2017 09/02/2017 Inactive Trulicity 1.5 mg/0.5 mL subcutaneous pen injector RxNorm: 15 44029 1 Unit Dose SQ WEEKLY 02/22/2017 03/23/2017 Inactive doxycycline hyclate 100 mg capsule RxNorm: 8895582 1 Capsule(s) PO BID 01/23/2017 02/05/2017 Inactive Amaryl 4 mg tablet RxNorm: 978780 1 Tablet(s) PO BID replaces 2mg 1 03/25/2016 05/22/2017 Inactive magnesium oxide 400 mg capsule RxNorm: 180897 1 Capsule(s) PO QD 07/18/2017 Inactive Ativan 0.5 mg tablet RxNorm: 251776 TAKE ONE TABLET BY MOUTH TH REE TIMES DAILY 01/17/2017 05/01/2017 Inactive Amaryl 2 mg tablet RxNorm: 801720 1 Tablet(s) PO BID 12/27/201601/22 Inactive Amaryl 2 mg tablet RxNorm: 282530 1 Tablet(s) PO BID 12/26/201612/26 Inactive Ativan 0.5 mg tablet RxNorm: 280227 TAKE ONE TABLET BY MOUTH TH REE TIMES DAILY 12/05/2016 01/18/2017 Inactive pramipexole 1 mg tablet RxNorm: 294103 1 Tablet(s) PO Q PM for restless legs--replaces requip 11/26/2016 05/30/2017 Inactive Mobic 15 mg tablet RxNorm: 903189 1 Tablet(s) PO QD 10/08/20162016 Inactive cyclobenzaprine 5 mg tablet RxNorm: 161145 1/2- 1 Tablet(s) PO TID 10/08/2016 10/17/2016 Inactive Ativan 0.5 mg tablet RxNorm: 869878 1 Tablet(s) PO TID 09/20/201607/2016 Inactive amitriptyline 50 mg tablet RxNorm: 654741 1 Tablet(s) PO QHS 201605/30/2017 Inactive propranolol 60 mg tablet RxNorm: 590290 1 Tablet(s) PO BID repl aces 40mg dose 09/19/2016 06/26/2017 Inactive Ativan 0.5 mg tablet RxNorm: 789375 1 Tablet(s) PO TID 08/20/2016 Inactive omeprazole 40 mg capsule,delayed release RxNorm: 361446 1 Capsule(s) PO BID TAKE ONE CAPSULE BY MOUTH TWICE DAILY 08/20/2016 05/30/2017 Inactive amitriptyline 50 mg tablet RxNorm: 370118 1 Tablet(s) PO QHS 201609/18/2016 Inactive pramipexole 1 mg tablet RxNorm: 064064 1 Tablet(s) PO Q PM for restless legs--replaces requip 07/23/2016 11/25/2016 Inactive Amaryl 2 mg tablet RxNorm: 922586 1 Tablet(s) PO BID 07/23/201612/27 Inactive propranolol 40 mg tablet RxNorm: 714448 1 Tablet(s) PO BID 07/13/1909/18/2016 Inactive Ativan 0.5 mg tablet RxNorm: 066127 1 Tablet(s) PO QID 06/19/2016 Inactive Amaryl 2 mg tablet RxNorm: 921143 1 Tablet(s) PO BID 06/19/201607/22 Inactive Ativan 0.5 mg tablet RxNorm: 523961 1 Tablet(s) PO QID 06/19/2016 Inactive buspirone 5 mg tablet RxNorm: 714565 1 Tablet(s) PO TID 06/19/2016 Inactive Ativan 0.5 mg tablet RxNorm: 279143 1 Tablet(s) PO BID 05/24/2016 Inactive buspirone 5 mg tablet RxNorm: 682951 1 Tablet(s) PO TID 05/23/2016 Inactive Macrobid 100 mg capsule RxNorm: 456410 1 Capsule(s) PO QOD 05/03/1910/07/2016 Inactive pramipexole 1 mg tablet RxNorm: 924346 Tablet(s) 1 Tabl et(s) PO QPM for restless legs--replaces requip 04/26/2016 06/24/2016 Inactive propranolol 40 mg tablet RxNorm: 651349 TAKE ONE TABLET BY MOUT H TWICE DAILY 04/26/2016 06/24/2016 Inactive Detrol LA 4 mg capsule,extended release RxNorm: 923104 1 Capsul e(s) PO QHS 04/03/2016 05/02/2016 Inactive prednisone 20 mg tablet RxNorm: 829758 1 Tablet(s) PO QD 02/29/2016 0 03/04/2016 Inactive Actos 30 mg tablet RxNorm: 094022 TAKE ONE TABLET BY MOUTH ONCE DAILY 02/27/2016 12/19/2016 Inactive clindamycin 300 mg capsule RxNorm: 678535 1 Capsule(s) PO TID 02/0102/08/2016 Inactive Flagyl 500 mg tablet RxNorm: 259057 1 Tablet(s) PO BID 02/02/201609/2015 Inactive omeprazole 40 mg capsule,delayed release RxNorm: 139289 TAKE ONE CAPSULE BY MOUTH TWICE DAILY 01/15/2016 07/12/2016 Inactive gabapentin 300 mg capsule RxNorm: 715147 1 Capsule(s) PO QAM an d 2 po q HS 01/05/2016 06/18/2016 Inactive gabapentin 300 mg capsule RxNorm: 232382 1 Capsule(s) P O BID 1 Capsule(s) PO QHS 12/05/2015 01/04/2016 Inactive cyclobenzaprine 10 mg tablet RxNorm: 764296 1 Tablet(s) PO TID for spasm as needed for muscle spasm 12/05/2015 06/18/2016 Inactive ciprofloxacin 250 mg tablet RxNorm: 024956 1 Tablet(s) PO BID 12/0412/14/2015 Inactive pramipexole 1 mg tablet RxNorm: 093089 Tablet(s) 1 Tabl et(s) PO QPM for restless legs--replaces requip 11/07/2015 11/26/2016 Inactive Januvia 100 mg tablet RxNorm: 836245 1 Tablet(s) PO QD 10/26/201504/2015 Inactive propranolol 40 mg tablet RxNorm: 940993 TAKE ONE TABLET BY MOUT H TWICE DAILY 10/25/2015 04/21/2016 Inactive gabapentin 300 mg capsule RxNorm: 296836 1 Capsule(s) PO QHS 201512/04/2015 Inactive Cipro 500 mg tablet RxNorm: 705910 1 Tablet(s) PO BID 10/05/201511/2015 Inactive pramipexole 1 mg tablet RxNorm: 184558 Tablet(s) 1 Tabl et(s) PO QPM for restless legs--replaces requip 10/04/2015 11/02/2015 Inactive propranolol 40 mg tablet RxNorm: 790682 TAKE ONE TABLET BY MOUT H TWICE DAILY 09/26/2015 10/24/2015 Inactive Amaryl 2 mg tablet RxNorm: 299967 1 Tablet(s) PO QD 09/15/20152016 Inactive gabapentin 300 mg capsule RxNorm: 624805 1 Capsule(s) PO QHS 201510/14/2015 Inactive buspirone 5 mg tablet RxNorm: 182162 1 Tablet(s) PO TID 09/15/2015 Inactive pramipexole 1 mg tablet RxNorm: 937401 Tablet(s) 1 Tabl et(s) PO QPM for restless legs--replaces requip 09/08/2015 10/03/2015 Inactive pramipexole 1 mg tablet RxNorm: 520107 1 Tablet(s) PO Q PM for restless legs--replaces requip 08/08/2015 09/08/2015 Inactive Amaryl 2 mg tablet RxNorm: 724755 1 Tablet(s) PO QD 07/07/20152015 Inactive pramipexole 1 mg tablet RxNorm: 291580 1 Tablet(s) PO Q PM for restless legs--replaces requip 07/05/2015 08/03/2015 Inactive ropinirole 2 mg tablet RxNorm: 502617 TAKE ONE TABLET BY MOUTH TWICE DAILY 05/09/2015 09/14/2015 Inactive Diflucan 100 mg tablet RxNorm: 414323 1 Tablet(s) PO QD 03/30/2015 Inactive propranolol 40 mg tablet RxNorm: 357004 1 Tablet(s) PO BID 02/24/20 15 08/21/2015 Inactive [SAVINGS FOR UNINSURED PATIE NTS -- BIN:720878, PCN: ASPROD1, Group: AME08, ID# [id number], Process claim through [employer], for questions: . THIS IS NOT INSURANCE.] Flagyl 500 mg tablet RxNorm: 549922 1 Tablet(s) PO BID 02/03/201502/2015 Inactive Cipro 500 mg tablet RxNorm: 025928 1 Tablet(s) PO BID 02/03/201502/01 Inactive Carafate 1 gram tablet RxNorm: 522409 1 Tablet(s) PO QID make i nto slurry 02/03/2015 09/14/2015 Inactive ondansetron HCl 4 mg tablet RxNorm: 337315 1 Tablet(s) PO Q4H as needed for nausea 12/29/2014 01/04/2016 Inactive Diflucan 100 mg tablet RxNorm: 649753 1 Tablet(s) PO QD 12/29/2014 Inactive Keflex 500 mg capsule RxNorm: 794259 1 Capsule(s) PO TID 12/29/2014 1 03/09/2014 Inactive omeprazole 40 mg capsule,delayed release RxNorm: 864924 1 Capsu le(s) PO BID 12/27/2014 12/21/2015 Inactive [SAVINGS FOR UNINSUR ED PATIENTS -- BIN:790013, PCN: ASPROD1, Group: AME08, ID# [id number], Process claim through [employer], for questions: . THIS IS NOT INSURANCE.] ropinirole 2 mg tablet RxNorm: 127301 1 Tablet(s) PO BID 09/29/2014 0 03/27/2015 Inactive [SAVINGS FOR UNINSURED PATIENTS -- BIN:0 00760, PCN: ASPROD1, Group: AME08, ID# [id number], Process claim through [employer], for questions: . THIS IS NOT INSURANCE.] buspirone 5 mg tablet RxNorm: 328106 1 Tablet(s) PO TID 09/17/2014 Inactive ropinirole 2 mg tablet RxNorm: 489261 1 Tablet(s) PO BID 09/02/2014 0 09/28/2014 Inactive [SAVINGS FOR UNINSURED PATIENTS -- BIN:0 61851, PCN: ASPROD1, Group: AME08, ID# [id number], Process claim through [employer], for questions: . THIS IS NOT INSURANCE.] Zyrtec 10 mg tablet RxNorm: 4898383 1 Tablet(s) PO QD 09/02/201412/02 Inactive propranolol 40 mg tablet RxNorm: 927062 1 Tablet(s) PO BID 07/21/19 15 02/23/2015 Inactive [SAVINGS FOR UNINSURED PATIE NTS -- BIN:572305, PCN: ASPROD1, Group: AME08, ID# [id number], Process claim through [employer], for questions: . THIS IS NOT INSURANCE.] ropinirole 2 mg tablet RxNorm: 280971 1 Tablet(s) PO QHS 05/14/2014 0 09/01/2014 Inactive [SAVINGS FOR UNINSURED PATIENTS -- BIN:0 05921, PCN: ASPROD1, Group: AME08, ID# [id number], Process claim through [employer], for questions: . THIS IS NOT INSURANCE.] cyclobenzaprine 10 mg tablet RxNorm: 592418 1 Tablet(s) PO QHS for spasm 04/06/2014 09/01/2014 Inactive ipratropium-albuterol 0.5 mg-3 mg(2.5 mg base)/3 mL ne bulization soln RxNorm: 1939349 1 Unit Dose INH Q4H 03/16/2014 No Stop Date Active [SAVINGS FOR UNINSURED PATIENTS -- BIN:330582, PCN: ASPROD1, Group: AME08, ID# [id number], Process claim through [employer], for questions: . THIS IS NOT INSURANCE.] prednisone 20 mg tablet RxNorm: 256490 1 Tablet(s) PO BID 03/09/2014 03/15/2014 Inactive [SAVINGS FOR UNINSURED PATIENTS -- BIN:0 71254, PCN: ASPROD1, Group: AME08, ID# [id number], Process claim through [employer], for questions: . THIS IS NOT INSURANCE.] ipratropium-albuterol 0.5 mg-3 mg(2.5 mg base)/3 mL ne bulization soln RxNorm: 0793719 1 Unit Dose INH Q4H 03/09/2014 03/15/2014 Inactive [SAVINGS FOR UNINSURED PATIENTS -- BIN:690314, PCN: ASPROD1, Group: AME08, ID# [id number], Process claim through [employer], for questions: . THIS IS NOT INSURANCE.] Levaquin 500 mg tablet RxNorm: 360659 1 Tablet(s) PO QD 03/09/2014 Inactive [SAVINGS FOR UNINSURED PATIENTS -- BIN:0 58696, PCN: ASPROD1, Group: AME08, ID# [id number], Process claim through [employer], for questions: . THIS IS NOT INSURANCE.] Carafate 1 gram tablet RxNorm: 965161 1 Tablet(s) PO AC & HS ma ke into slurry 02/09/2014 09/01/2014 Inactive [SAVINGS FOR UNINSUR ED PATIENTS -- BIN:664520, PCN: ASPROD1, Group: AME08, ID# [id number], Process claim through [employer], for questions: . THIS IS NOT INSURANCE.] Fioricet 50 mg-300 mg-40 mg capsule RxNorm: 5693120 1-2 Capsule(s) PO Q4H as needed for headache --max of 6 a day 02/09/2014 09/01/2014 Inactive [SAVINGS FOR UNINSURED PATIENTS -- BIN:308588, PCN: ASPROD1, Group: AME08, ID# [id number], Process claim through [employer], for questions: . THIS IS NOT INSURANCE.] propranolol 40 mg tablet RxNorm: 102098 1 Tablet(s) PO BID 12/08/19 14 06/04/2014 Inactive [SAVINGS FOR UNINSURED PATIE NTS -- BIN:768178, PCN: ASPROD1, Group: AME08, ID# [id number], Process claim through [employer], for questions: . THIS IS NOT INSURANCE.] buspirone 5 mg tablet RxNorm: 428920 1 Tablet(s) PO TID 12/02/2013 Inactive omeprazole 40 mg capsule,delayed release RxNorm: 178644 1 Capsu le(s) PO BID 11/25/2013 11/19/2014 Inactive [SAVINGS FOR UNINSUR ED PATIENTS -- BIN:041182, PCN: ASPROD1, Group: AME08, ID# [id number], Process claim through [employer], for questions: . THIS IS NOT INSURANCE.] ropinirole 2 mg tablet RxNorm: 197200 1 Tablet(s) PO QHS 11/10/2013 0 05/08/2014 Inactive [SAVINGS FOR UNINSURED PATIENTS -- BIN:0 70485, PCN: ASPROD1, Group: AME08, ID# [id number], Process claim through [employer], for questions: . THIS IS NOT INSURANCE.] Cipro 500 mg tablet RxNorm: 826151 1 Tablet(s) PO BID 10/21/201312/03 Inactive [SAVINGS FOR UNINSURED PATIENTS -- BIN:0 47422, PCN: ASPROD1, Group: AME08, ID# [id number], Process claim through [employer], for questions: . THIS IS NOT INSURANCE.] hydroxyzine HCl 25 mg tablet RxNorm: 327781 1 Tablet(s) PO Q4-6 H as needed 10/05/2013 01/04/2016 Inactive [SAVINGS FOR UNINSUR ED PATIENTS -- BIN:203290, PCN: ASPROD1, Group: AME08, ID# [id number], Process claim through [employer], for questions: . THIS IS NOT INSURANCE.] triamcinolone acetonide 0.1 % topical cream RxNorm: 9553058 Appl ication TOP BID 10/05/2013 09/01/2014 Inactive [SAVINGS FOR UNINSUR ED PATIENTS -- BIN:246754, PCN: ASPROD1, Group: AME08, ID# [id number], Process claim through [employer], for questions: . THIS IS NOT INSURANCE.] albuterol sulfate HFA 90 mcg/actuation aerosol inhaler RxNor m: 3677127 2 Puff(s) INH Q4H as needed for cough 10/01/2013 12/22/2013 Inactive [MAKSIM INGS FOR UNINSURED PATIENTS -- BIN:418269, PCN: ASPROD1, Group: AME08, ID# [id number], Process claim through [employer], for questions: . THIS IS NOT INSURANCE.] propranolol 40 mg tablet RxNorm: 245287 1 Tablet(s) PO BID 09/02/19 14 11/29/2013 Inactive [SAVINGS FOR UNINSURED PATIE NTS -- BIN:372846, PCN: ASPROD1, Group: AME08, ID# [id number], Process claim through [employer], for questions: . THIS IS NOT INSURANCE.] propranolol 40 mg tablet RxNorm: 479754 1 Tablet(s) PO BID 08/05/19 14 08/31/2013 Inactive [SAVINGS FOR UNINSURED PATIE NTS -- BIN:373187, PCN: ASPROD1, Group: AME08, ID# [id number], Process claim through [employer], for questions: . THIS IS NOT INSURANCE.] Toprol XL 50 mg tablet,extended release RxNorm: 210594 1 Tablet (s) PO QHS 07/23/2013 08/03/2013 Inactive Macrobid 100 mg capsule RxNorm: 673502 1 Capsule(s) PO BID 07/04/19 14 07/09/2013 Inactive Toprol XL 50 mg tablet,extended release RxNorm: 003381 1 Tablet (s) PO QHS 05/28/2013 06/26/2013 Inactive ciprofloxacin 500 mg tablet RxNorm: 755755 1 Tablet(s) PO BID 05/2706/02/2013 Inactive Bystolic 5 mg tablet RxNorm: 281796 1 Tablet(s) PO QD 05/27/201305/03 Inactive ropinirole 2 mg tablet RxNorm: 895744 1 Tablet(s) PO QHS 04/22/2013 0 11/09/2013 Inactive Cipro 250 mg tablet RxNorm: 292024 1 Tablet(s) PO BID 04/06/201311/2013 Inactive ropinirole 2 mg tablet RxNorm: 244401 1 Tablet(s) PO QHS 02/17/2013 0 04/21/2013 Inactive Amaryl 2 mg tablet RxNorm: 039175 1 Tablet(s) PO QAM 11/11/201211/10 Inactive Amaryl 2 mg tablet RxNorm: 274207 1 Tablet(s) PO QAM 11/11/201204/05 Inactive omeprazole 40 mg capsule,delayed release RxNorm: 204308 1 Capsu le(s) PO BID 08/14/2012 08/08/2013 Inactive Bystolic 5 mg tablet RxNorm: 618366 1 Tablet(s) PO QD 08/14/201205/03 Inactive propranolol 60 mg tablet RxNorm: 628728 Tablet(s) PO TAKE 1 TAB LET TWICE DAILY 08/01/2012 09/01/2012 Inactive Bystolic 5 mg tablet RxNorm: 758798 1 Tablet(s) PO QD 07/21/201207/02 Inactive Bystolic 5 mg tablet RxNorm: 690304 1 Tablet(s) PO QD 07/21/201207/03 Inactive Prilosec 40 mg capsule,delayed release RxNorm: 532928 1 Capsule (s) PO BID 06/24/2012 07/21/2012 Inactive buspirone 10 mg tablet RxNorm: 579410 1 Tablet(s) PO TID 05/08/2012 0 05/23/2016 Inactive Valium 10 mg tablet RxNorm: 438486 1 Tablet(s) PO BID 04/02/201207/03 Inactive Endocet 10 mg-325 mg tablet RxNorm: 6854678 1 Tablet(s) PO QID 03/0607/21/2012 Inactive as needed for severe pain Valium 10 mg tablet RxNorm: 411788 1 Tablet(s) PO BID 02/27/2012 No S top Date Active Endocet 10 mg-325 mg tablet RxNorm: 7052299 1 Tablet(s) PO QID 02/0203/27/2012 Inactive as needed for severe pain Endocet 10 mg-325 mg tablet RxNorm: 8660751 1 Tablet(s) PO QID 01/0302/26/2012 Inactive as needed for severe pain Valium 10 mg tablet RxNorm: 305656 1 Tablet(s) PO BID 01/29/2012 No S top Date Active Protonix 40 mg tablet,delayed release RxNorm: 660381 1 Tablet(s ) PO QD 01/28/2012 07/21/2012 Inactive metformin ER 500 mg tablet,extended release 24 hr RxNorm: 86 0977 1 Tablet(s) PO QD 12/26/2011 07/20/2012 Inactive Trazadone 150 mg Tablet RxNorm: 1 Tablet(s) PO QHS prn sleep 1 04/23/2012 Inactive Endocet 10 mg-325 mg tablet RxNorm: 5631979 1 Tablet(s) PO QID 12/0301/24/2012 Inactive as needed for severe pain Nexium 40 mg capsule,delayed release RxNorm: 221993 1 Capsule(s ) PO QD 12/26/2011 01/27/2012 Inactive Symbicort 160 mcg-4.5 mcg/actuation HFA Aerosol Inhaler RxNo rm: 9409185 2 Puff(s) INH BID 12/04/2011 07/21/2012 Inactive Endocet 10 mg-325 mg tablet RxNorm: 0143751 1 Tablet(s) PO QID 11/0312/25/2011 Inactive as needed for severe pain metformin ER 500 mg tablet,extended release 24 hr RxNorm: 86 0977 1 Tablet(s) PO QD 11/20/2011 12/19/2011 Inactive metformin ER 500 mg tablet,extended release 24 hr RxNorm: 86 0977 1 Tablet(s) PO QD 11/20/2011 11/19/2011 Inactive amitriptyline 100 mg tablet RxNorm: 926352 Tablet(s) PO QHS 1 a nd /2 tabs QHS 11/12/2011 11/13/2011 Inactive Valium 10 mg tablet RxNorm: 905322 1 Tablet(s) PO BID 11/09/2011 No S top Date Active Endocet 10 mg-325 mg tablet RxNorm: 3659756 1 Tablet(s) PO QID 10/0211/14/2011 Inactive as needed for severe pain Aricept 10 mg Tab RxNorm: 534717 1 Tablet(s) PO QD 10/05/2011 013 Inactive Valium 10 mg tablet RxNorm: 376703 1 Tablet(s) PO BID 10/05/2011 No S top Date Active Endocet 10 mg-325 mg Tab RxNorm: 3041116 1 Tablet(s) PO QID 012 10/09/2011 Inactive as needed for severe pain Aricept 10 mg Tab RxNorm: 683914 1 Tablet(s) PO QD 08/14/2011 012 Inactive Endocet 10 mg-325 mg Tab RxNorm: 5189249 1 Tablet(s) PO QID 012 08/31/2011 Inactive as needed for severe pain Valium 10 mg Tab RxNorm: 818079 1 Tablet(s) PO BID 08/02/2011 No Stop Date Active propranolol 60 mg tablet RxNorm: 547909 1 Tablet(s) PO BID 07/26/19 12 09/11/2011 Inactive amitriptyline 100 mg tablet RxNorm: 639741 Tablet(s) PO QHS 1 a nd 1/2 tabs QHS 06/20/2011 09/11/2011 Inactive buspirone 10 mg tablet RxNorm: 432916 1 Tablet(s) PO BID 06/18/2011 0 09/15/2011 Inactive propranolol 60 mg Tab RxNorm: 820395 1 Tablet(s) PO BID 06/18/2011 Inactive gabapentin 800 mg Tab RxNorm: 395932 1 Tablet(s) PO BID 06/18/2011 Inactive ropinirole 2 mg tablet RxNorm: 669213 1 Tablet(s) PO QHS 05/29/2011 0 08/26/2011 Inactive trimethoprim 100 mg Tab RxNorm: 639882 1 Tablet(s) PO QHS 05/29/2011 07/21/2012 Inactive Endocet 10 mg-325 mg Tab RxNorm: 1077053 1 Tablet(s) PO QID 012 2011 Inactive as needed for severe pain Valium 10 mg Tab RxNorm: 967414 1 Tablet(s) PO QHS N eed to take med as prescribed. this is a 40 day RX. No early fills. 05/17/2011 05/20/2018 Inactive propranolol 60 mg Tab RxNorm: 302443 1 Tablet(s) PO BID 04/16/2011 Inactive Neurontin 800 mg Tab RxNorm: 891595 1 Tablet(s) PO QHS 04/05/201103/2011 Inactive Endocet 10 mg-325 mg Tab RxNorm: 7749442 1 Tablet(s) PO QID 012 05/02/2011 Inactive as needed for severe pain oxycodone-acetaminophen 10 mg-325 mg tablet RxNorm: 7290246 1 Ta blet(s) PO Q4H 03/28/2011 05/19/2012 Inactive Valium 10 mg Tab RxNorm: 750503 1 Tablet(s) PO QHS 03/28/2011 012 Inactive buspirone 10 mg Tab RxNorm: 377650 1 Tablet(s) PO BID 03/27/201106/02 Inactive propranolol 60 mg Tab RxNorm: 627844 1 Tablet(s) PO BID 03/19/2011 Inactive Klor-Con M20 20 mEq Tab RxNorm: 3120355 1 Tablet(s) PO QD 03/19/2011 07/21/2012 Inactive Aricept 10 mg Tab RxNorm: 641395 1 Tablet(s) PO QD 02/27/2011 012 Inactive propranolol 60 mg Tab RxNorm: 786284 1 Tablet(s) PO BID 02/19/2011 Inactive omeprazole 40 mg capsule,delayed release RxNorm: 497651 1 Capsu le(s) PO BID 01/24/2011 05/23/2011 Inactive clindamycin 300 mg capsule RxNorm: 722922 1 Capsule(s) PO TID 01/2402/02/2011 Inactive propranolol 60 mg Tab RxNorm: 681451 1 Tablet(s) PO BID 01/22/2011 No Stop Date Active nystatin 100,000 unit/g Topical Cream RxNorm: 638214 Applicatio n TOP BID 01/15/2011 01/14/2011 Inactive to rash for 2-4 week s Diflucan 200 mg Tab RxNorm: 344062 1 Tablet(s) PO QD 01/15/201101/28 Inactive buspirone 10 mg Tab RxNorm: 979993 1 Tablet(s) PO BID 01/08/201103/05 Inactive Valium 10 mg Tab RxNorm: 728741 1 Tablet(s) PO QHS 01/05/2011 012 Inactive Diflucan 200 mg Tab RxNorm: 174864 1 Tablet(s) PO QD 01/01/201101/14 Inactive Diflucan 200 mg Tab RxNorm: 170374 1 Tablet(s) PO QD 12/18/201012/31 Inactive Valium 10 mg Tab RxNorm: 562040 1 Tablet(s) PO QHS 12/12/2010 011 Inactive Diflucan 200 mg Tab RxNorm: 835221 1 Tablet(s) PO QD 12/07/201012/18 Inactive Aricept 10 mg Tab RxNorm: 139975 1 Tablet(s) PO QD 11/20/2010 011 Inactive ropinirole 1 mg Tab RxNorm: 491897 1 Tablet(s) PO QHS 11/16/201005/03 Inactive enalapril maleate 5 mg Tab RxNorm: 905923 1 Tablet(s) PO QD 011 05/20/2018 Inactive buspirone 10 mg Tab RxNorm: 158594 1 Tablet(s) PO BID 11/16/201012/02 Inactive Valium 10 mg Tab RxNorm: 358364 1 Tablet(s) PO QHS 11/07/2010 011 Inactive Pyridium 100 mg Tab RxNorm: 2962724 1 Tablet(s) PO TID 11/02/201004/2010 Inactive Macrobid 100 mg Cap RxNorm: 4461917 1 Capsule(s) PO BID 11/02/2010 Inactive buspirone 10 mg Tab RxNorm: 053276 1 Tablet(s) PO QHS 10/18/201005/02 Inactive propranolol 60 mg Tab RxNorm: 110027 1 Tablet(s) PO BID 09/18/2010 Inactive Valium 10 mg Tab RxNorm: 484695 1 Tablet(s) PO QHS 09/05/2010 011 Inactive Aricept 10 mg Tab RxNorm: 708685 1 Tablet(s) PO QD 08/14/2010 011 Inactive Valium 10 mg Tab RxNorm: 289830 1 Tablet(s) PO QHS 06/26/2010 011 Inactive ropinirole 1 mg Tab RxNorm: 829318 1 Tablet(s) PO QHS 06/19/201010/02 Inactive omeprazole 40 mg Cap, delayed release RxNorm: 282767 1 Capsule( s) PO QD 06/07/2010 10/04/2010 Inactive Endocet 10 mg-325 mg Tab RxNorm: 1063213 1 Tablet(s) PO QID as needed for severe pain 06/07/2010 03/07/2011 Inactive Endocet 10 mg-325 mg Tab RxNorm: 6994080 1 Tablet(s) PO QID as needed for severe pain 05/04/2010 06/02/2010 Inactive Valium 10 mg Tab RxNorm: 951961 1 Tablet(s) PO QHS 05/01/2010 011 Inactive propranolol 60 mg Tab RxNorm: 611011 1 Tablet(s) PO BID 04/03/2010 Inactive Valium 10 mg Tab RxNorm: 417557 1 Tablet(s) PO QHS 03/28/2010 011 Inactive omeprazole 40 mg Cap, Delayed Release RxNorm: 608929 1 Capsule( s) PO QD 03/28/2010 06/06/2010 Inactive Endocet 10 mg-325 mg Tab RxNorm: 5016419 1 Tablet(s) PO QID prn ari n 03/27/2010 05/20/2018 Inactive Valium 10 mg Tab RxNorm: 543076 1 Tablet(s) PO QHS 02/20/2010 011 Inactive Diflucan 100 mg Tab RxNorm: 253089 1 Tablet(s) PO BID 01/23/201003/2009 Inactive Diflucan 100 mg Tab RxNorm: 933379 1 Tablet(s) PO BID 01/05/201001/02 Inactive Aricept 10 mg Tab RxNorm: 740268 1 Tablet(s) PO QD 12/01/2009 011 Inactive OxyContin 20 mg 12 hr Tab RxNorm: 1250846 1 Tablet(s) PO BID 200904/05/2010 Inactive oxycodone-acetaminophen 10 mg-325 mg Tab RxNorm: 7918350 1 Table t(s) PO Q4H 11/22/2009 11/26/2009 Inactive Phenergan 25 mg Tab RxNorm: 759207 1 Tablet(s) PO PRN MIGRAINE 11/0303/07/2011 Inactive Demerol 100 mg Tab RxNorm: 865791 1 Tablet(s) PO PRN MIGRAINE 11/2203/07/2011 Inactive Oxycodone-Acetaminophen 10 mg-325 mg Tab RxNorm: 5825287 1 Table t(s) PO Q4H 10/11/2009 10/15/2009 Inactive Percocet 10 mg-325 mg Tab RxNorm: 6121111 1 Tablet(s) PO Q4H 200910/24/2009 Inactive propranolol 60 mg Tab RxNorm: 720944 1 Tablet(s) PO BID 08/29/2009 Inactive Valium 10 mg Tab RxNorm: 848292 1 Tablet(s) PO QHS 08/16/2009 010 Inactive Keflex 500 mg Cap RxNorm: 028858 1 Capsule(s) PO BID 07/25/200907/31 Inactive Hydroxyzine 25 mg Tab RxNorm: 137850 1 Tablet(s) PO TID 07/25/2009 Inactive Prednisone 20 mg Tab RxNorm: 610897 1 Tablet(s) PO BID 07/25/2009 Inactive Demerol 100 mg Tab RxNorm: 221772 1 Tablet(s) PO PRN MIGRAINE 07/25 No Stop Date Active Ropinirole 1 mg Tab RxNorm: 899453 1 Tablet(s) PO HS 07/20/200902/14 Inactive Valium 10 mg Tab RxNorm: 370034 1 Tablet(s) PO QHS 07/18/2009 010 Inactive Endocet 10 mg-325 mg Tab RxNorm: 7649014 1 Tablet(s) PO TID 010 07/07/2009 Inactive Demerol 100 mg Tab RxNorm: 398387 1 Tablet(s) PO PRN MIGRAINE 06/08 No Stop Date Active Ropinirole 1 mg Tab RxNorm: 365194 1 Tablet(s) PO HS 05/16/200907/14 Inactive ipratropium-albuterol 0.5 mg-3 mg(2.5 mg base)/3 mL ne bulization soln RxNorm: 9582332 1 Unit Dose INH Q4H as needed No Start Date Active MagOx 400 mg (241.3 mg magnesium) tablet RxNorm: 854664 1 Table t(s) PO BID No Start Date Active Vitamin B12 1000mcg Tablet RxNorm: 1 Tablet(s) PO QD No Start Date Active Vitamin D3 5,000 unit tablet RxNorm: 830628 1 Tablet(s) PO QD No Star t Date Active Tylenol Arthritis Pain 650 mg tablet,extended release RxNorm : 7518621 1 Tablet(s) PO Q4H No Start Date Active Lotrimin AF 2 % topical powder RxNorm: 526150 1 Application TOP BID No Start Date Active enalapril maleate 5 mg Tab RxNorm: 939042 1 Tablet(s) PO QD No Star t Date 07/20/2012 Inactive Demerol 100 mg Tab RxNorm: 637523 Tablet(s) PO PRN MIGRAINE No Star t Date 06/02/2009 Inactive metformin 500 mg tablet RxNorm: 476494 1 Tablet(s) PO QD No Start D ate 04/05/2013 Inactive Breo Ellipta 100 mcg-25 mcg/dose powder for inhalation RxNor m: 5466523 1 Puff(s) INH BID No Start Date 01/04/2016 Inactive Mag-Oxide 400 mg Tab RxNorm: 599750 1 Tablet(s) PO QD No Start Date 0 07/21/2012 Inactive Cipro 500 mg Tab RxNorm: 464479 1 Tablet(s) PO QD No Start Date 04/05 Inactive Ativan 0.5 mg tablet RxNorm: 554348 1 Tablet(s) PO TID as needed No Start Date 05/06/2019 Inactive melatonin 3 mg tablet RxNorm: 916105 2 Tablet(s) PO QHS No Start Da te 08/19/2018 Inactive buspirone 10 mg Tab RxNorm: 210958 1 Tablet(s) PO QD No Start Date Inactive sucralfate 100 mg/mL Oral Susp RxNorm: 964853 2 Teaspoon(s) PO QID No Start Date 07/21/2012 Inactive hydrocodone 5 mg-acetaminophen 325 mg tablet RxNorm: 317976 1 Tablet(s) PO Q4H as needed No Start Date 08/19/2018 Inactive Amaryl 2 mg tablet RxNorm: 002035 1 Tablet(s) PO BID No Start Date Inactive OxyContin 20 mg 12 hr Tab RxNorm: 4255700 1 Tablet(s) PO BID No Sta rt Date 11/27/2009 Inactive propranolol 40 mg tablet RxNorm: 887897 1 Tablet(s) PO QID No Start Date 01/19/2018 Inactive Trazadone 150 mg Tablet RxNorm: 1-2 Tablet(s) PO QHS prn sleep No Start Date 08/09/2010 Inactive propranolol 60 mg Tab RxNorm: 901491 1/2 Tablet(s) PO BID No Start Date 01/21/2011 Inactive insulin NPH and regular human subcutaneous RxNorm: 7639902 subcu taneous No Start Date 11/20/2018 Inactive Ativan 0.5 mg tablet RxNorm: 343563 1 Tablet(s) PO QID No Start Date 06/18/2016 Inactive Vasotec 5 mg Tab RxNorm: 587940 1 Tablet(s) PO BID No Start Date 06/2011 Inactive Toprol XL 50 mg tablet,extended release RxNorm: 570894 1 Tablet (s) PO BID No Start Date 04/05/2013 Inactive Ativan 0.5 mg tablet RxNorm: 750772 1 Tablet(s) PO TID No Start Date 05/25/2016 Inactive Klor-Con M20 20 mEq Tab RxNorm: 6370489 1 Tablet(s) PO QD No Start Date 03/19/2011 Inactive sumatriptan 100 mg tablet RxNorm: 817086 1 Tablet(s) PO at headache onset--repeat in 2hrs if remains No Start Date 07/21/2012 Inactive propranolol 60 mg Tab RxNorm: 366695 1 Tablet(s) PO BID No Start Da te 08/28/2009 Inactive Cholestyramine Light 4 gram Oral Powder RxNorm: 3897065 1 Unit Dose PO QD in water No Start Date 07/21/2012 Inactive nystatin 100,000 unit/g Topical Powder RxNorm: 886712 Applicati on TOP BID No Start Date 07/21/2012 Inactive vitamin T10-ucqem acid sublingual RxNorm: sublingual No Start Date 07/05/2013 Inactive cyclobenzaprine 5 mg tablet RxNorm: 467849 1/2-1 Tablet (s) PO TID as needed for muscle spasm No Start Date 07/18/2017 Inactive tramadol 50 mg tablet RxNorm: 743288 2 Tablet(s) PO TID as need ed for pain No Start Date 09/01/2014 Inactive aspirin 81 mg Tab RxNorm: 792275 1 Tablet(s) PO QOD No Start Date 04/2013 Inactive Vitamin B12 1000mcg Tablet RxNorm: 1 Tablet(s) PO QD No Start Date 07/18/2017 Inactive cholestyramine (with sugar) 4 gram oral powder RxNorm: 76388 3 1 Unit(s) PO QD as needed No Start Date 05/20/2018 Inactive ProAir HFA 90 mcg/Actuation Aerosol Inhaler RxNorm: 184902 2 Puff(s) INH Q4H prn shortness of breath No Start Date 07/21/2012 Inactive pravastatin 10 mg Tab RxNorm: 527804 1 Tablet(s) PO QD No Start Date 07/21/2012 Inactive gabapentin 800 mg Tab RxNorm: 648268 1 Tablet(s) PO BID No Start Da te 06/03/2011 Inactive Endocet 10 mg-325 mg Tab RxNorm: 3983397 1 Tablet(s) PO TID No Star t Date 06/02/2009 Inactive Naproxen 500 mg Tab RxNorm: 009849 1 Tablet(s) PO BID No Start Date 0 04/05/2010 Inactive Valium 10 mg Tab RxNorm: 203248 1 Tablet(s) PO BID No Start Date 07/04 Inactive enalapril maleate 5 mg Tab RxNorm: 130836 1 Tablet(s) PO QD No Star t Date 11/15/2010 Inactive doxepin 10 mg capsule RxNorm: 4833784 2 Capsule(s) PO QHS No Start Date 09/17/2018 Inactive MS Contin 15 mg Tab RxNorm: 522299 1 Tablet(s) PO BID No Start Date 0 09/18/2010 Inactive buspirone 5 mg tablet RxNorm: 502007 1 Tablet(s) PO TID No Start Da te 12/01/2013 Inactive Almo 3 Fish Oil Cap RxNorm: 1 Capsule(s) PO QD No Start Date 07/03 Inactive enalapril maleate 5 mg Tab RxNorm: 399883 1/2 Tablet(s) PO QD No St art Date 03/07/2011 Inactive Lyrica 75 mg capsule RxNorm: 647182 1 Capsule(s) PO QHS No Start Da te 02/08/2014 Inactive Lopressor 100 mg tablet RxNorm: 277740 1 Tablet(s) PO BID No Start Date 06/08/2018 Inactive Lantus Solostar U-100 Insulin 100 unit/mL (3 mL) subcu taneous pen RxNorm: 207710 45 Unit(s) SQ QAM No Start Date 05/20/2018 Inactive aspirin 81 mg tablet RxNorm: 562825 1 Tablet(s) PO QD No Start Date 0 09/14/2015 Inactive diltiazem CD 240 mg capsule,extended release 24 hr RxNorm: 8 12012 1 Capsule(s) PO QD No Start Date 05/25/2019 Inactive insulin NPH isophane U-100 human subcutaneous RxNorm: 573302 beckwith bcutaneous No Start Date 04/20/2019 Inactive sumatriptan 100 mg tablet RxNorm: 674805 1 Tablet(s) PO at headache onset. May repeat 1 in two hours if headache remains. Max of 2 per 24 hours No Start Date 04/01/2018 Inactive gabapentin 300 mg capsule RxNorm: 672973 1 Capsule(s) PO QHS No Sta rt Date 02/04/2018 Inactive Topamax 25 mg Tab RxNorm: 993591 Oral No Start Date 03/07/2011 In active Senokot-S 8.6 mg-50 mg Tab RxNorm: 4907508 1 Tablet(s) PO QD No Sta rt Date 03/07/2011 Inactive metformin ER 500 mg 24 hr tablet,extended release RxNorm: 18 13336 1 Tablet(s) PO QD No Start Date 05/20/2018 Inactive Symbicort 80 mcg-4.5 mcg/actuation HFA Aerosol Inhaler RxNor m: 3708292 2 Puff(s) INH BID No Start Date 04/05/2013 Inactive metoprolol tartrate 25 mg tablet RxNorm: 706396 1 Tablet(s) PO BID No Start Date 05/20/2019 Inactive propranolol 60 mg Tab RxNorm: 055156 1/2 Tablet(s) PO BID No Start Date 07/21/2012 Inactive metformin ER 500 mg 24 hr tablet,extended release RxNorm: 18 88032 2 Tablet(s) PO QD No Start Date 12/16/2017 Inactive Insulin Syringe 1 mL 29 gauge x 1/2" RxNorm: 2 s yringes daily with insulin Dx: E11.65 No Start Date 10/07/2018 Inactive Amitriptyline 75 mg Tab RxNorm: 207382 1 Tablet(s) PO QHS No Start Date 10/23/2009 Inactive donepezil 10 mg Tab RxNorm: 953730 1 Tablet(s) PO QD No Start Date Inactive Lantus Solostar U-100 Insulin 100 unit/mL (3 mL) subcu taneous pen RxNorm: 210504 36 Unit(s) SQ QAM No Start Date 12/24/2017 Inactive Miacalcin 200 unit/Actuation Nasal [place] Aerosol RxNorm: 261 204 1 [place] NASAL QD Alternate nostrils each day No Start Date 04/05/2010 Inactive Amitriptyline 150 mg Tab RxNorm: 746416 1 Tablet(s) PO QHS No Start Date 01/04/2010 Inactive Bystolic 5 mg tablet RxNorm: 387048 1 Tablet(s) PO QD No Start Date 0 08/13/2012 Inactive Aricept 10 mg Tab RxNorm: 365202 1 Tablet(s) PO QD No Start Date 11/03 Inactive Lantus Solostar U-100 Insulin 100 unit/mL (3 mL) subcu taneous pen RxNorm: 954042 50 Unit(s) SQ QAM No Start Date 08/27/2018 Inactive albuterol sulfate 2.5 mg/3 mL (0.083 %) Neb Solution RxNorm: 346372 1 Unit Dose INH QID as needed No Start Date 08/23/2015 Inactive Symbicort 160 mcg-4.5 mcg/actuation HFA Aerosol Inhaler RxNo rm: 8317142 2 Puff(s) INH BID No Start Date 12/03/2011 Inactive Savella 50 mg Tab RxNorm: 831807 1 Tablet(s) PO BID No Start Date 04/2010 Inactive amitriptyline 100 mg Tab RxNorm: 364092 1 1/2 Tablet(s) PO QHS No S tart Date 06/19/2011 Inactive nystatin 100,000 unit/g Topical Cream RxNorm: 940687 Ap plication TOP BID to rash for 2-4 weeks No Start Date 01/14/2011 Inactive Trelegy Ellipta 100 mcg-62.5 mcg-25 mcg powder for inhalatio n RxNorm: 7104170 1 Puff(s) INH QD No Start Date 12/16/2017 Inactive Lyrica 150 mg capsule RxNorm: 271559 1 Capsule(s) PO QHS No Start D ate 12/04/2015 Inactive sennosides 8.6 mg tablet RxNorm: 533561 1 Tablet(s) PO BID No Start Date 09/07/2018 Inactive metformin ER 500 mg tablet,extended release 24 hr RxNorm: 86 0975 1 Tablet(s) PO QD No Start Date 10/22/2017 Inactive Fish Oil 1,000 mg Cap RxNorm: 1 Capsule(s) PO QD No Start Date 06/2011 Inactive Zyrtec 10 mg Tab RxNorm: 2654254 1 Tablet(s) PO QD No Start Date 07/03 Inactive albuterol sulfate HFA 90 mcg/actuation aerosol inhaler RxNor m: 3973527 2 Puff(s) INH Q4H as needed for cough No Start Date 09/30/2013 Inactive trazodone 150 mg tablet RxNorm: 077991 1 Tablet(s) PO QHS No Start Date 07/21/2012 Inactive Spiriva with HandiHaler 18 mcg & inhalation capsules RxNorm: 903607 1 Capsule(s) INH QD No Start Date 04/05/2013 Inactive Coreg 3.125 mg Tab RxNorm: 982083 1 Tablet(s) PO BID No Start Date Inactive Phenergan 25 mg Tab RxNorm: 091434 Tablet(s) PO PRN MIGRAINE No Sta rt Date 11/21/2009 Inactive Vitamin D 50,000 unit Cap RxNorm: 1570579 1 Capsule(s) PO QW No Sta rt Date 03/07/2011 Inactive Januvia 100 mg tablet RxNorm: 453980 1 Tablet(s) PO QD No Start Date 10/25/2015 Inactive Eliquis 5 mg tablet RxNorm: 3588383 1 Tablet(s) PO BID No Start Date 08/19/2018 Inactive Advair Diskus 500 mcg-50 mcg/Dose for Inhalation RxNorm: 681882 1 INH BID No Start Date 07/21/2012 Inactive Vitamin D3 5,000 unit tablet RxNorm: 572327 1 Tablet(s) PO QD No St art Date 07/18/2017 Inactive Amaryl 2 mg tablet RxNorm: 472111 1 Tablet(s) PO QD No Start Date 06/2015 Inactive Actos 30 mg tablet RxNorm: 957471 1 Tablet(s) PO QD No Start Date Inactive promethazine 25 mg tablet RxNorm: 281717 1 Tablet(s) PO Q4H prn N/V No Start Date 07/21/2012 Inactive ProAir HFA 90 mcg/actuation Aerosol Inhaler RxNorm: 999555 2 Puff(s) INH Q4H prn dyspnea No Start Date 07/21/2012 Inactive Dexilant 60 mg Capsule RxNorm: 668385 1 Capsule(s) PO QD No Start D ate 01/27/2012 Inactive Lantus Solostar U-100 Insulin 100 unit/mL (3 mL) subcu taneous pen RxNorm: 012810 38 Unit(s) SQ QAM No Start Date 05/20/2018 Inactive Valium 10 mg Tab RxNorm: 095744 1 Tablet(s) PO QHS AND PRN No Start Date 10/24/2009 Inactive ZOFRAN ODT 8 mg disintegrating tablet RxNorm: 693918 1 Tablet(s ) PO Q6H No Start [...] Date S vice Location MICROALBUMIN URINE RANDOM 49465 MICRL MG/L 14.9 MG/L Unknown MICROALBUMIN URINE RANDOM 01581 XM.ALB/CRE 6.1 MG/GCR Unknown MICROALBUMIN URINE RANDOM 97875 CREAT MG/D 243 MG/DL Unknown MICROALBUMIN URINE RANDOM 16298 CRE/100 2.43 G/L 03/05 Unknown PROTEIN/CREAT URINE WITH RATIO 31802|60900 PROT R U 14 MG/D L 04/01/2014 Unknown PROTEIN/CREAT URINE WITH RATIO 60369|01541 CREAT R U 254 MG/ DL 04/01/2014 Unknown PROTEIN/CREAT URINE WITH RATIO 33125|20785 XRATIO P/C 55 MG/ G 04/01/2014 Unknown URINALYSIS 55102 PROTEIN UR NEG 04/28/2010 Unknown URINALYSIS 41087 HEMGLBN UR NEG 04/28/2010 Unknown URINALYSIS 38793 GLUCOSE UR NEG 04/28/2010 Unknown URINALYSIS 63514 KETONES UR NEG 04/28/2010 Unknown URINALYSIS 85423 PH U 5.5 04/28/2010 Unknown URINALYSIS 97856 SP GR U 1.025 04/28/2010 Unknown URINALYSIS 78906 BILRUBN UR NEG 04/28/2010 Unknown URINALYSIS 71327 LEUKO UR 2+ 04/28/2010 Unknown URINALYSIS 09077 NITRITE UR NEG 04/28/2010 Unknown MICR CUL? [id number] WBC/HPF 6-10 04/28/2010 Unknown MICR CUL? [id number] RBC/HPF 0-5 04/28/2010 Unknown MICR CUL? [id number] HYAL CAST 16-25 04/28/2010 Unknown MICR CUL? [id number] SP TO YOLIE? NO 04/28/2010 Unknown MICR CUL? [id number] APPEAR UR NORMAL 04/28/2010 Unknown MICR CUL? [id number] SQ EPI/LPF FEW 04/28/2010 Unknown Procedures Procedure Codes Date URINALYSIS NONAUTO W/O SCOPE CPT-4: 11231 04/16/2019 URINE CULTURE/ COLONY COUNT CPT-4: 01719 04/16/2019 CEFTRIAXONE SODIUM INJECTION CPT-4: J0696 04/16/2019 THER/PROPH/DIAG INJ SC/IM CPT-4: 58636 04/16/2019 DRAIN/INJECT JOINT/BURSA CPT-4: 37405 01/22/2019 TRIAMCINOLONE ACET INJ NOS CPT-4: J3301 01/22/2019 DEXAMETHASONE SODIUM PHOS CPT-4: J1100 01/22/2019 URINE CULTURE/ COLONY COUNT CPT-4: 03325 01/07/2019 URINALYSIS NONAUTO W/O SCOPE CPT-4: 25502 01/07/2019 CEFTRIAXONE SODIUM INJECTION CPT-4: J0696 01/07/2019 THER/PROPH/DIAG INJ SC/IM CPT-4: 77004 01/07/2019 FLU VACC PRSV FREE INC ANTIG 65 AND OLDER CPT-4: 88082 12/24/2018 FLU VACC PRSV FREE INC ANTIG 65 AND OLDER CPT-4: 40536 12/24/2018 ADMIN INFLUENZA VIRUS VAC CPT-4: G0008 12/24/2018 THER/PROPH/DIAG INJ SC/IM CPT-4: 83786 11/04/2018 KETOROLAC TROMETHAMINE INJ CPT-4: J1885 11/04/2018 PROMETHAZINE HCL INJECTION CPT-4: J2550 11/04/2018 PPPS, subseq visit CPT-4: G0439 09/18/2018 THER/PROPH/DIAG INJ SC/IM CPT-4: 10850 04/01/2018 KETOROLAC TROMETHAMINE INJ CPT-4: J1885 04/01/2018 PROMETHAZINE HCL INJECTION CPT-4: J2550 04/01/2018 URINE CULTURE/ COLONY COUNT CPT-4: 22745 03/17/2018 URINALYSIS NONAUTO W/O SCOPE CPT-4: 02889 03/17/2018 FLU VACC PRSV FREE INC ANTIG 65 AND OLDER CPT-4: 97111 12/17/2017 PNEUMOCOCCAL VACC 23 RANDALL IM CPT-4: 09410 12/17/2017 ADMIN INFLUENZA VIRUS VAC CPT-4: G0008 12/17/2017 ADMIN PNEUMOCOCCAL VACCINE CPT-4: G0009 12/17/2017 PPPS, subseq visit CPT-4: G0439 09/17/2017 THER/PROPH/DIAG INJ SC/IM CPT-4: 68751 08/26/2017 KETOROLAC TROMETHAMINE INJ CPT-4: J1885 08/26/2017 PROMETHAZINE HCL INJECTION CPT-4: J2550 08/26/2017 URINALYSIS NONAUTO W/O SCOPE CPT-4: 16225 07/19/2017 URINE CULTURE/ COLONY COUNT CPT-4: 12661 07/19/2017 CEFTRIAXONE SODIUM INJECTION CPT-4: J0696 07/19/2017 THER/PROPH/DIAG INJ SC/IM CPT-4: 35862 07/19/2017 THER/PROPH/DIAG INJ SC/IM CPT-4: 33786 07/19/2017 TRIAMCINOLONE ACET INJ NOS CPT-4: J3301 07/19/2017 PRESCRIP TRANSMIT VIA ERX SY CPT-4: G8553 05/07/2017 PRESCRIP TRANSMIT VIA ERX SY CPT-4: G8553 02/22/2017 PRESCRIP TRANSMIT VIA ERX SY CPT-4: G8553 01/23/2017 FLU VACC PRSV FREE INC ANTIG 65 AND OLDER CPT-4: 83071 12/20/2016 PNEUMOCOCCAL VACC 13 RANDALL IM CPT-4: 62997 12/20/2016 ADMIN INFLUENZA VIRUS VAC CPT-4: G0008 12/20/2016 ADMIN PNEUMOCOCCAL VACCINE CPT-4: G0009 12/20/2016 URINALYSIS NONAUTO W/O SCOPE CPT-4: 63014 10/08/2016 URINE CULTURE/ COLONY COUNT CPT-4: 94123 10/08/2016 PRESCRIP TRANSMIT VIA ERX SY CPT-4: G8553 10/08/2016 PRESCRIP TRANSMIT VIA ERX SY CPT-4: G8553 09/19/2016 PRESCRIP TRANSMIT VIA ERX SY CPT-4: G8553 08/20/2016 PRESCRIP TRANSMIT VIA ERX SY CPT-4: G8553 02/29/2016 KETOROLAC TROMETHAMINE INJ CPT-4: J1885 02/02/2016 THER/PROPH/DIAG INJ SC/IM CPT-4: 56371 02/02/2016 PROMETHAZINE HCL INJECTION CPT-4: J2550 02/02/2016 PRESCRIP TRANSMIT VIA ERX SY CPT-4: G8553 02/02/2016 FLU VACC PRSV FREE INC ANTIG 65 AND OLDER CPT-4: 03221 01/05/2016 PPPS, subseq visit CPT-4: G0439 01/05/2016 ADMIN INFLUENZA VIRUS VAC CPT-4: G0008 01/05/2016 URINE CULTURE/ COLONY COUNT CPT-4: 20316 12/05/2015 URINALYSIS NONAUTO W/O SCOPE CPT-4: 27380 12/05/2015 PRESCRIP TRANSMIT VIA ERX SY CPT-4: G8553 12/05/2015 PRESCRIP TRANSMIT VIA ERX SY CPT-4: G8553 10/26/2015 URINALYSIS NONAUTO W/O SCOPE CPT-4: 24232 10/05/2015 URINE CULTURE/ COLONY COUNT CPT-4: 19006 10/05/2015 PRESCRIP TRANSMIT VIA ERX SY CPT-4: G8553 10/05/2015 SERVICE REQUIRED FOR PMD CPT-4: G0372 09/15/2015 PRESCRIP TRANSMIT VIA ERX SY CPT-4: G8553 09/15/2015 SPECIAL REPORTS OR FORMS CPT-4: 80136 08/25/2015 PRESCRIP TRANSMIT VIA ERX SY CPT-4: G8553 07/05/2015 URINALYSIS NONAUTO W/O SCOPE CPT-4: 69377 03/30/2015 ASSAY, GLUCOSE, BLOOD QUANT CPT-4: 85043 03/30/2015 URINE CULTURE/ COLONY COUNT CPT-4: 30232 03/30/2015 PRESCRIP TRANSMIT VIA ERX SY CPT-4: G8553 03/30/2015 PRESCRIP TRANSMIT VIA ERX SY CPT-4: G8553 02/03/2015 FLU VACC PRSV FREE INC ANTIG 65 AND OLDER CPT-4: 35849 12/29/2014 ADMIN INFLUENZA VIRUS VAC CPT-4: G0008 12/29/2014 PRESCRIP TRANSMIT VIA ERX SY CPT-4: G8553 12/29/2014 PRESCRIP TRANSMIT VIA ERX SY CPT-4: G8553 09/02/2014 PROTEIN/CREAT URINE WITH RATIO CPT-4: 55801|[id number] 5 MICROALBUMIN QUANTITATIVE CPT-4: 81258 04/01/2014 PRESCRIP TRANSMIT VIA ERX SY CPT-4: G8553 03/16/2014 PRESCRIP TRANSMIT VIA ERX SY CPT-4: G8553 03/09/2014 THER/PROPH/DIAG INJ SC/IM CPT-4: 74832 03/01/2014 TRIAMCINOLONE ACET INJ NOS CPT-4: J3301 03/01/2014 PRESCRIP TRANSMIT VIA ERX SY CPT-4: G8553 02/09/2014 URINE CULTURE/ COLONY COUNT CPT-4: 49531 10/30/2013 URINALYSIS NONAUTO W/O SCOPE CPT-4: 56734 10/21/2013 URINE CULTURE/ COLONY COUNT CPT-4: 84627 10/21/2013 DESTRUCT PREMALG LESION (Cryosurgery) CPT-4: 02007 PRESCRIP TRANSMIT VIA ERX SY CPT-4: G8553 10/05/2013 URINALYSIS NONAUTO W/O SCOPE CPT-4: 59912 08/04/2013 URINE CULTURE/ COLONY COUNT CPT-4: 73967 08/04/2013 PRESCRIP TRANSMIT VIA ERX SY CPT-4: G8553 08/04/2013 THER/PROPH/DIAG INJ SC/IM CPT-4: 38759 07/13/2013 TRIAMCINOLONE ACET INJ NOS CPT-4: J3301 07/13/2013 PRESCRIP TRANSMIT VIA ERX SY CPT-4: G8553 05/27/2013 URINALYSIS NONAUTO W/O SCOPE CPT-4: 89269 05/25/2013 URINE CULTURE/ COLONY COUNT CPT-4: 87985 05/25/2013 THER/PROPH/DIAG INJ SC/IM CPT-4: 78659 05/04/2013 VITAMIN B12 INJECTION CPT-4: J3420 05/04/2013 THER/PROPH/DIAG INJ SC/IM CPT-4: 41808 04/17/2013 VITAMIN B12 INJECTION CPT-4: J3420 04/17/2013 THER/PROPH/DIAG INJ SC/IM CPT-4: 95927 04/17/2013 METHYLPREDNISOLONE 40 MG INJ CPT-4: J1030 04/17/2013 TRIAMCINOLONE ACET INJ NOS CPT-4: J3301 04/17/2013 URINALYSIS NONAUTO W/O SCOPE CPT-4: 07921 04/06/2013 URINE CULTURE/ COLONY COUNT CPT-4: 42327 04/06/2013 PRESCRIP TRANSMIT VIA ERX SY CPT-4: G8553 04/06/2013 KETOROLAC TROMETHAMINE INJ CPT-4: J1885 06/25/2012 PROMETHAZINE HCL INJECTION CPT-4: J2550 06/25/2012 THER/PROPH/DIAG INJ SC/IM CPT-4: 18324 06/25/2012 THER/PROPH/DIAG INJ SC/IM CPT-4: 07668 06/24/2012 METHYLPREDNISOLONE 40 MG INJ CPT-4: J1030 06/24/2012 TRIAMCINOLONE ACET INJ NOS CPT-4: J3301 06/24/2012 URINE CULTURE/ COLONY COUNT CPT-4: 88361 06/24/2012 THER/PROPH/DIAG INJ SC/IM CPT-4: 69378 05/20/2012 KETOROLAC TROMETHAMINE INJ CPT-4: J1885 05/20/2012 THER/PROPH/DIAG INJ SC/IM CPT-4: 20603 05/20/2012 PROMETHAZINE HCL INJECTION CPT-4: J2550 05/20/2012 DRAIN/INJECT JOINT/BURSA CPT-4: 74750 02/13/2012 METHYLPREDNISOLONE 40 MG INJ CPT-4: J1030 02/13/2012 TRIAMCINOLONE ACET INJ NOS CPT-4: J3301 02/13/2012 THER/PROPH/DIAG INJ SC/IM CPT-4: 86029 11/14/2011 METHYLPREDNISOLONE 40 MG INJ CPT-4: J1030 11/14/2011 TRIAMCINOLONE ACET INJ NOS CPT-4: J3301 11/14/2011 THER/PROPH/DIAG INJ SC/IM CPT-4: 41774 09/12/2011 KETOROLAC TROMETHAMINE INJ CPT-4: J1885 09/12/2011 THER/PROPH/DIAG INJ SC/IM CPT-4: 13563 08/09/2011 METHYLPREDNISOLONE 40 MG INJ CPT-4: J1030 08/09/2011 TRIAMCINOLONE ACET INJ NOS CPT-4: J3301 08/09/2011 URINE CULTURE/ COLONY COUNT CPT-4: 96414 07/03/2011 URINE CULTURE/ COLONY COUNT CPT-4: 52549 06/04/2011 THER/PROPH/DIAG INJ SC/IM CPT-4: 97073 05/03/2011 METHYLPREDNISOLONE 40 MG INJ CPT-4: J1030 05/03/2011 TRIAMCINOLONE ACET INJ NOS CPT-4: J3301 05/03/2011 URINALYSIS NONAUTO W/O SCOPE CPT-4: 47851 01/24/2011 URINE CULTURE/ COLONY COUNT CPT-4: 78132 01/24/2011 FLUZONE, 5ML (Medicare) CPT-4: Q2038 01/02/2011 ADMIN INFLUENZA VIRUS VAC CPT-4: G0008 01/02/2011 ASSAY, GLUCOSE, BLOOD QUANT CPT-4: 58653 12/07/2010 URINE CULTURE/ COLONY COUNT CPT-4: 44303 11/02/2010 THER/PROPH/DIAG INJ SC/IM CPT-4: 31533 10/18/2010 METHYLPREDNISOLONE 40 MG INJ CPT-4: J1030 10/18/2010 TRIAMCINOLONE ACET INJ NOS CPT-4: J3301 10/18/2010 TRIAMCINOLONE ACET INJ NOS CPT-4: J3301 05/11/2010 METHYLPREDNISOLONE 40 MG INJ CPT-4: J1030 05/11/2010 THER/PROPH/DIAG INJ SC/IM CPT-4: 00762 05/11/2010 TRIAMCINOLONE ACET INJ NOS CPT-4: J3301 02/09/2010 METHYLPREDNISOLONE 40 MG INJ CPT-4: J1030 02/09/2010 THER/PROPH/DIAG INJ SC/IM CPT-4: 82156 02/09/2010 SERVICE REQUIRED FOR PMD CPT-4: G0372 02/09/2010 FLU VACCINE 3 YRS & > IM UP 64 CPT-4: 77627 0 PNEUMOCOCCAL VACC 23 RANDALL IM CPT-4: 38295 12/07/2009 ADMIN INFLUENZA VIRUS VAC CPT-4: G0008 12/07/2009 ADMIN PNEUMOCOCCAL VACCINE CPT-4: G0009 12/07/2009 TRIAMCINOLONE ACET INJ NOS CPT-4: J3301 05/26/2009 THER/PROPH/DIAG INJ SC/IM CPT-4: 23003 05/26/2009 METHYLPREDNISOLONE 80 MG INJ CPT-4: J1040 [...] 1: 114/72 Code: 8480-6 BMI: 37.8 Code: 17349-5 Heart Rate 1: 72 bpm Height: 5'3" [...] 1: 106/68 Code: 8480-6 BMI: 35.7 Code: 56152-5 Heart Rate 1: 72 bpm Height: 5'4" Respiratory Rate: 20 bpm SpO2: 98% Tempera ture: 36.7 (C) / 98.0 (F) Weight: 208 lbs 04/16/2018 Blood Pressure 1: 132/82 Code: 8480-6 BMI: 37.9 Code: 76392-6 Heart Rate 1: 72 bpm Height: 5'4" Respiratory Rate: 20 bpm SpO2: 96% Tempera ture: 37.1 (C) / 98.8 (F) Weight: 221 lbs 04/01/2018 Blood Pressure 1: 150/90 Code: 8480-6 Heart Rate 1: 72 bpm Respiratory Rate: 22 bpm SpO2: 95% Temperature: 36.4 (C) / 97.6 (F) We ight: 216 lbs 03/06/2018 Blood Pressure 1: 126/78 Code: 8480-6 BMI: 37.4 Code: 48782-1 Heart Rate 1: 68 bpm Height: 5'4" [...] ight: 222 lbs 12/25/2017 BMI: 37.8 Code: 21626-6 Heart Rate 1: 76 bpm Height: 5 '4" Respiratory Rate: 20 bpm SpO2: 96% Temperature: 37.3 (C) / 99.2 (F) Weight: 220 lbs 12/17/2017 Blood Pressure 1: 132/78 Code: 8480-6 BMI: 37.2 Code: 47063-7 Heart Rate 1: 88 bpm Height: 5'4" Respiratory Rate: 20 bpm SpO2: 96% Tempera ture: 37.3 (C) / 99.2 (F) Weight: 217 lbs 10/30/2017 Blood Pressure 1: 114/68 Code: 8480-6 BMI: 36.4 Code: 36207-6 Heart Rate 1: 72 bpm Height: 5'4" Respiratory Rate: 22 bpm SpO2: 96% Tempera ture: 36.8 (C) / 98.2 (F) Weight: 212 lbs 10/23/2017 Blood Pressure 1: 124/78 Code: 8480-6 Heart Rate 1: 72 bpm Respiratory Rate: 24 bpm SpO2: 94% Temperature: 36.6 (C) / 97.9 (F) We ight: 212 lbs 09/17/2017 Blood Pressure 1: 128/82 Code: 8480-6 BMI: 37.4 Code: 97586-9 Heart Rate 1: 72 bpm Height: 5'4" Respiratory Rate: 20 bpm SpO2: 96% Tempera ture: 37.0 (C) / 98.6 (F) Weight: 218 lbs 07/19/2017 Blood Pressure 1: 136/84 Code: 8480-6 BMI: 36.6 Code: 82597-1 Heart Rate 1: 88 bpm Height: 5'4" Respiratory Rate: 20 bpm SpO2: 97% Tempera ture: 36.7 (C) / 98.0 (F) Weight: 213 lbs 05/29/2017 Blood Pressure 1: 136/82 Code: 8480-6 BMI: 36.7 Code: 30640-9 Heart Rate 1: 72 bpm Height: 5'4" Respiratory Rate: 20 bpm SpO2: 97% Tempera ture: 36.9 (C) / 98.4 (F) Weight: 214 lbs 05/07/2017 Blood Pressure 1: 122/80 Code: 8480-6 BMI: 37.1 Code: 42319-1 Heart Rate 1: 80 bpm Height: 5'4" Respiratory Rate: 24 bpm SpO2: 96% Tempera ture: 36.1 (C) / 97.0 (F) Weight: 216 lbs 03/18/2017 BMI: 36.7 Code: 86717-9 Heart Rate 1: 80 bpm Height: 5 '4" Respiratory Rate: 22 bpm SpO2: 95% Temperature: 36.9 (C) / 98.4 (F) Weight: 214 lbs 02/27/2017 Blood Pressure 1: 146/94 Code: 8480-6 BMI: 36.6 Code: 87497-3 Heart Rate 1: 76 bpm Height: 5'4" Respiratory Rate: 22 bpm SpO2: 97% Tempera ture: 36.6 (C) / 97.9 (F) Weight: 213 lbs 02/22/2017 Blood Pressure 1: 126/90 Code: 8480-6 BMI: 36.4 Code: 83346-0 Heart Rate 1: 84 bpm Height: 5'4" Respiratory Rate: 22 bpm SpO2: 95% Tempera ture: 36.9 (C) / 98.4 (F) Weight: 212 lbs 01/23/2017 Blood Pressure 1: 146/82 Code: 8480-6 BMI: 37.6 Code: 98201-1 Heart Rate 1: 96 bpm Height: 5'4" Respiratory Rate: 20 bpm SpO2: 96% Tempera ture: 36.9 (C) / 98.4 (F) Weight: 219 lbs 12/20/2016 Blood Pressure 1: 126/70 Code: 8480-6 BMI: 37.2 Code: 22682-5 Heart Rate 1: 76 bpm Height: 5'4" Respiratory Rate: 22 bpm SpO2: 95% Tempera ture: 36.6 (C) / 97.8 (F) Weight: 217 lbs 10/08/2016 Blood Pressure 1: 128/82 Code: 8480-6 BMI: 36.9 Code: 84739-0 Heart Rate 1: 76 bpm Height: 5'4" Respiratory Rate: 20 bpm SpO2: 95% Tempera ture: 37.0 (C) / 98.6 (F) Weight: 215 lbs 09/19/2016 Blood Pressure 1: 144/78 Code: 8480-6 BMI: 37.8 Code: 58115-2 Heart Rate 1: 76 bpm Height: 5'4" Respiratory Rate: 22 bpm SpO2: 95% Tempera ture: 37.0 (C) / 98.6 (F) Weight: 220 lbs 08/20/2016 Blood Pressure 1: 140/86 Code: 8480-6 BMI: 37.4 Code: 29879-1 Heart Rate 1: 80 bpm Height: 5'4" Respiratory Rate: 20 bpm SpO2: 95% Tempera ture: 36.9 (C) / 98.4 (F) Weight: 218 lbs 06/19/2016 Blood Pressure 1: 124/78 Code: 8480-6 BMI: 37.8 Code: 52705-8 Heart Rate 1: 74 bpm Height: 5'4" Respiratory Rate: 24 bpm SpO2: 96% Tempera ture: 36.9 (C) / 98.4 (F) Weight: 220 lbs 06/04/2016 Blood Pressure 1: 124 Code: 8480-6 BMI: 38.8 Code: 16345-0 Heart Rate 1: 72 bpm Height: 5'4" Respiratory Rate: 24 bpm SpO2: 95% Tempera ture: 36.8 (C) / 98.2 (F) Weight: 226 lbs 05/02/2016 Blood Pressure 1: 136/90 Code: 8480-6 BMI: 37.6 Code: 45978-8 Heart Rate 1: 72 bpm Height: 5'4" Respiratory Rate: 24 bpm SpO2: 96% Tempera ture: 36.9 (C) / 98.4 (F) Weight: 219 lbs 04/03/2016 Blood Pressure 1: 126/78 Code: 8480-6 BMI: 38.1 Code: 45833-5 Heart Rate 1: 72 bpm Height: 5'4" Respiratory Rate: 22 bpm SpO2: 94% Tempera ture: 36.9 (C) / 98.4 (F) Weight: 222 lbs 02/29/2016 Blood Pressure 1: 132/78 Code: 8480-6 Heart Rate 1: 78 bpm Height: Respiratory Rate: 24 bpm SpO2: 95% Temperature: 36.4 (C) / 97.6 (F) We ight: 02/02/2016 Blood Pressure 1: 124/78 Code: 8480-6 BMI: 37.6 Code: 78055-5 Heart Rate 1: 76 bpm Height: 5'4" Respiratory Rate: 20 bpm SpO2: 95% Tempera ture: 36.8 (C) / 98.2 (F) Weight: 219 lbs 01/05/2016 Blood Pressure 1: 126/70 Code: 8480-6 BMI: 37.1 Code: 71199-0 Heart Rate 1: 76 bpm Height: 5'4" Respiratory Rate: 20 bpm Temperature: 36 .6 (C) / 97.8 (F) Weight: 216 lbs 12/05/2015 Blood Pressure 1: 126/72 Code: 8480-6 BMI: 36.9 Code: 08315-3 Heart Rate 1: 92 bpm Height: 5'4" Respiratory Rate: 20 bpm Temperature: 36 .7 (C) / 98.1 (F) Weight: 215 lbs 10/26/2015 Blood Pressure 1: 142/80 Code: 8480-6 BMI: 36.4 Code: 32544-5 Heart Rate 1: 82 bpm Height: 5'4" Respiratory Rate: 24 bpm SpO2: 92% Tempera ture: 35.9 (C) / 96.7 (F) Weight: 212 lbs 10/05/2015 Blood Pressure 1: 136/82 Code: 8480-6 Heart Rate 1: 80 bpm Respiratory Rate: 18 bpm SpO2: 98% Temperature: 35.7 (C) / 96.3 (F) We ight: 214 lbs 09/15/2015 Blood Pressure 1: 116/80 Code: 8480-6 BMI: 34.6 Code: 61404-5 Heart Rate 1: 76 bpm Height: 5'6" Respiratory Rate: 20 bpm Temperature: 36 .6 (C) / 97.9 (F) Weight: 211 lbs 08/24/2015 Blood Pressure 1: 124/80 Code: 8480-6 BMI: 34.1 Code: 08400-9 Heart Rate 1: 68 bpm Height: 5'6" Respiratory Rate: 20 bpm Temperature: 36 .8 (C) / 98.3 (F) Weight: 208 lbs 07/05/2015 Blood Pressure 1: 114/78 Code: 8480-6 BMI: 33.9 Code: 46722-2 Heart Rate 1: 80 bpm Height: 5'6" Respiratory Rate: 20 bpm Temperature: 36 .6 (C) / 97.9 (F) Weight: 207 lbs 06/06/2015 Blood Pressure 1: 122/78 Code: 8480-6 BMI: 34.1 Code: 22654-8 Heart Rate 1: 76 bpm Height: 5'6" Respiratory Rate: 24 bpm SpO2: 96% Tempera ture: 36.4 (C) / 97.6 (F) Weight: 208 lbs 05/23/2015 Blood Pressure 1: 124/78 Code: 8480-6 Heart Rate 1: 76 bpm Respiratory Rate: 24 bpm SpO2: 93% Temperature: 36.8 (C) / 98.2 (F) We ight: 212 lbs 05/05/2015 Blood Pressure 1: 136/80 Code: 8480-6 BMI: 35.4 Code: 47801-6 Heart Rate 1: 76 bpm Height: 5'6" Respiratory Rate: 28 bpm Temperature: 37 .0 (C) / 98.6 (F) Weight: 216 lbs 03/30/2015 Blood Pressure 1: 132/86 Code: 8480-6 BMI: 35.2 Code: 74541-8 Heart Rate 1: 84 bpm Height: 5'6" Respiratory Rate: 24 bpm Temperature: 36 .7 (C) / 98.0 (F) Weight: 215 lbs 02/03/2015 Blood Pressure 1: 122/74 Code: 8480-6 BMI: 35.7 Code: 40492-9 Heart Rate 1: 84 bpm Height: 5'6" Respiratory Rate: 20 bpm Temperature: 36 .9 (C) / 98.5 (F) Weight: 218 lbs 12/29/2014 Blood Pressure 1: 132/80 Code: 8480-6 BMI: 35.1 Code: 28280-3 Heart Rate 1: 80 bpm Height: 5'6" Respiratory Rate: 20 bpm Temperature: 36 .6 (C) / 97.8 (F) Weight: 214 lbs 09/02/2014 Blood Pressure 1: 128/92 Code: 8480-6 BMI: 34.7 Code: 76456-9 Heart Rate 1: 84 bpm Height: 5'6" Respiratory Rate: 26 bpm Temperature: 36 .8 (C) / 98.2 (F) Weight: 212 lbs 08/25/2014 Blood Pressure 1: 124/80 Code: 8480-6 BMI: 34.7 Code: 46566-3 Heart Rate 1: 78 bpm Height: 5'6" Respiratory Rate: 22 bpm SpO2: 97% Tempera ture: 36.6 (C) / 97.8 (F) Weight: 212 lbs 04/01/2014 Blood Pressure 1: 142/84 Code: 8480-6 BMI: 34.4 Code: 14208-3 Heart Rate 1: 74 bpm Height: 5'5" Respiratory Rate: 20 bpm Temperature: 36 .4 (C) / 97.6 (F) Weight: 207 lbs 03/16/2014 Blood Pressure 1: 142/90 Code: 8480-6 BMI: 34.6 Code: 98186-8 Heart Rate 1: 76 bpm Height: 5'5" Respiratory Rate: 24 bpm Temperature: 36 .5 (C) / 97.7 (F) Weight: 208 lbs 03/09/2014 Blood Pressure 1: 116/70 Code: 8480-6 BMI: 35.3 Code: 92674-4 Heart Rate 1: 72 bpm Height: 5'5" [...] 1: 128/86 Code: 8480-6 BMI: 34.3 Code: 61648-5 Heart Rate 1: 84 bpm Height: 5'5" Respiratory Rate: 20 bpm Temperature: 36 .7 (C) / 98.0 (F) Weight: 206 lbs 12/23/2013 Blood Pressure 1: 122/70 Code: 8480-6 BMI: 34.3 Code: 11227-8 Heart Rate 1: 68 bpm Height: 5'5" Respiratory Rate: 20 bpm Temperature: 36 .8 (C) / 98.2 (F) Weight: 206 lbs 10/05/2013 Blood Pressure 1: 118/76 Code: 8480-6 BMI: 34.1 Code: 22983-9 Heart Rate 1: 68 bpm Height: 5'5" Respiratory Rate: 20 bpm SpO2: 98% Tempera ture: 36.6 (C) / 97.9 (F) Weight: 205 lbs 08/04/2013 Blood Pressure 1: 126/82 Code: 8480-6 BMI: 33.3 Code: 32236-6 Heart Rate 1: 76 bpm Height: 5'5" Respiratory Rate: 20 bpm Temperature: 36 .8 (C) / 98.2 (F) Weight: 200 lbs 07/03/2013 Blood Pressure 1: 124/82 Code: 8480-6 BMI: 33.3 Code: 57932-1 Heart Rate 1: 72 bpm Height: 5'5" Respiratory Rate: 22 bpm Temperature: 36 .1 (C) / 97.0 (F) Weight: 200 lbs 05/27/2013 Blood Pressure 1: 126/82 Code: 8480-6 Heart Rate 1: 74 bpm Respiratory Rate: 20 bpm Temperature: 36.0 (C) / 96.8 (F) Weight: 199 lbs 04/06/2013 Blood Pressure 1: 118/80 Code: 8480-6 BMI: 35.2 Code: 03558-3 Heart Rate 1: 80 bpm Height: 5'4" Respiratory Rate: 20 bpm Temperature: 37 .4 (C) / 99.3 (F) Weight: 205 lbs 11/10/2012 Blood Pressure 1: 128/82 Code: 8480-6 Heart Rate 1: 84 bpm Respiratory Rate: 20 bpm Temperature: 36.7 (C) / 98.0 (F) Weight: 199 lbs 09/02/2012 Blood Pressure 1: 116/82 Code: 8480-6 BMI: 34.2 Code: 43026-8 Heart Rate 1: 88 bpm Height: 5'4" Respiratory Rate: 22 bpm Temperature: 36 .6 (C) / 97.8 (F) Weight: 199 lbs 08/04/2012 Blood Pressure 1: 128/74 Code: 8480-6 BMI: 34.0 Code: 30773-2 Heart Rate 1: 92 bpm Height: 5'4" Respiratory Rate: 20 bpm Temperature: 36 .4 (C) / 97.5 (F) Weight: 198 lbs 07/21/2012 Blood Pressure 1: 124/86 Code: 8480-6 Heart Rate 1: 116 bpm Respiratory Rate: 24 bpm Temperature: 36.8 (C) / 98.2 (F) 07/02/2012 Blood Pressure 1: 116/88 Code: 8480-6 BMI: 33.6 Code: 45447-4 Heart Rate 1: 76 bpm Height: 5'4" Respiratory Rate: 20 bpm Temperature: 36 .8 (C) / 98.3 (F) Weight: 196 lbs 06/24/2012 Blood Pressure 1: 124/80 Code: 8480-6 BMI: 34.3 Code: 53938-5 Heart Rate 1: 72 bpm Height: 5'4" SpO2: 96% Temperature: 36.3 (C) / 97.3 (F) Weight: 200 lbs 05/20/2012 Blood Pressure 1: 116/88 Code: 8480-6 BMI: 33.8 Code: 82565-0 Heart Rate 1: 80 bpm Height: 5'4" Respiratory Rate: 22 bpm Temperature: 36 .9 (C) / 98.4 (F) Weight: 197 lbs 05/08/2012 Blood Pressure 1: 128/86 Code: 8480-6 BMI: 33.8 Code: 71635-7 Heart Rate 1: 76 bpm Height: 5'4" Respiratory Rate: 26 bpm SpO2: 95% Tempera ture: 36.1 (C) / 97.0 (F) Weight: 197 lbs 04/22/2012 Blood Pressure 1: 106/64 Code: 8480-6 BMI: 33.8 Code: 11008-3 Heart Rate 1: 70 bpm Height: 5'4" Temperature: 36.1 (C) / 97.0 (F) Weight: 197 lbs 02/13/2012 Blood Pressure 1: 126/82 Code: 8480-6 BMI: 34.7 Code: 60747-8 Heart Rate 1: 64 bpm Height: 5'4" Respiratory Rate: 20 bpm Temperature: 36 .6 (C) / 97.8 (F) Weight: 202 lbs 01/28/2012 Blood Pressure 1: 116/80 Code: 8480-6 BMI: 34.7 Code: 25331-3 Heart Rate 1: 76 bpm Height: 5'4" Respiratory Rate: 20 bpm Temperature: 36 .8 (C) / 98.3 (F) Weight: 202 lbs 12/26/2011 Blood Pressure 1: 132/82 Code: 8480-6 BMI: 36.0 Code: 38067-0 Heart Rate 1: 68 bpm Height: 5'4" Respiratory Rate: 22 bpm Temperature: 36 .7 (C) / 98.0 (F) Weight: 210 lbs 11/14/2011 Blood Pressure 1: 124/80 Code: 8480-6 BMI: 36.4 Code: 12964-1 Heart Rate 1: 76 bpm Height: 5'4" Respiratory Rate: 20 bpm Temperature: 36 .8 (C) / 98.2 (F) Weight: 212 lbs 09/12/2011 Blood Pressure 1: 108/74 Code: 8480-6 BMI: 37.1 Code: 46801-6 Heart Rate 1: 72 bpm Height: 5'4" Respiratory Rate: 20 bpm Temperature: 37 .0 (C) / 98.6 (F) Weight: 216 lbs 08/15/2011 Blood Pressure 1: 122/80 Code: 8480-6 BMI: 36.9 Code: 38583-0 Heart Rate 1: 76 bpm Height: 5'4" Respiratory Rate: 20 bpm Temperature: 36 .2 (C) / 97.1 (F) Weight: 215 lbs 08/09/2011 Blood Pressure 1: 112/78 Code: 8480-6 BMI: 36.9 Code: 14113-0 Heart Rate 1: 68 bpm Height: 5'4" Respiratory Rate: 20 bpm Temperature: 36 .7 (C) / 98.0 (F) Weight: 215 lbs 07/03/2011 Blood Pressure 1: 140/94 Code: 8480-6 BMI: 36.2 Code: 29826-5 Heart Rate 1: 68 bpm Height: 5'4" Temperature: 36.0 (C) / 96.8 (F) Weight: 211 lbs 06/04/2011 Blood Pressure 1: 124/70 Code: 8480-6 BMI: 36.7 Code: 71797-1 Heart Rate 1: 68 bpm Height: 5'4" Respiratory Rate: 20 bpm Temperature: 36 .6 (C) / 97.9 (F) Weight: 214 lbs 05/03/2011 Blood Pressure 1: 130/76 Code: 8480-6 BMI: 36.4 Code: 18335-6 Heart Rate 1: 74 bpm Height: 5'5" Temperature: 36.2 (C) / 97.2 (F) Weight: 219 lbs 04/05/2011 Blood Pressure 1: 124/86 Code: 8480-6 BMI: 35.9 Code: 04053-8 Heart Rate 1: 76 bpm Height: 5'6" Respiratory Rate: 22 bpm Temperature: 36 .3 (C) / 97.3 (F) Weight: 219 lbs 03/08/2011 Blood Pressure 1: 112/78 Code: 8480-6 BMI: 35.1 Code: 47763-3 Heart Rate 1: 80 bpm Height: 5'6" Respiratory Rate: 26 bpm Temperature: 36 .9 (C) / 98.4 (F) Weight: 214 lbs 01/24/2011 Blood Pressure 1: 110/82 Code: 8480-6 BMI: 35.6 Code: 39504-7 Heart Rate 1: 80 bpm Height: 5'6" Temperature: 36.1 (C) / 97.0 (F) Weight: 217 lbs 01/02/2011 Blood Pressure 1: 106/72 Code: 8480-6 BMI: 35.6 Code: 10993-0 Heart Rate 1: 76 bpm Height: 5'6" [...] 1: 120/74 Code: 8480-6 BMI: 35.9 Code: 27300-9 Heart Rate 1: 72 bpm Height: 5'5" Temperature: 36.3 (C) / 97.4 (F) Weight: 216 lbs 09/19/2010 Blood Pressure 1: 124/80 Code: 8480-6 BMI: 35.4 Code: 21105-4 Heart Rate 1: 76 bpm Height: 5'5" [...] 1: 122/78 Code: 8480-6 BMI: 37.4 Code: 28628-8 Heart Rate 1: 84 bpm Height: 5'5" [...] 12/17/2017 follow up 10/30/2017 follow up 10/23/2017 [facility] fwup from [facility] Annual Checkup 09/17/2017 [...] up 06/04/2016 1mo fwup follow up 05/02/2016 [facility] fwup follow up 04/03/2016 dyspnea 02/29/2016 low grade 99s follow up 02/02/2016 ER fwup diabetes mellitus 01/05/2016 painful urination 12/05/2015 follow up 10/26/2015 ER visit from at [facility] for COPD Exacerbation follow up 10/05/2015 [...] up 10/18/[address] Medrano last w kenaitze, having increased allergy symptoms. Would like steroid [...] 1 month f/u follow up 12/07/2009 from [facility], done with PT--finished about 2wks ago follow [...] R19.7] Diagnosis: Abdominal bloating[ICD10: R14.0] Belia Reid [facility] CPT- 4: 16380 06/08/2019 ([id number]) OFFICE/OUTPATIENT VISIT EST Diagnosis: Acute febrile illness[ICD10: R50.9] Diagnosis: Colitis[ICD10: K52.9] Belia Reid [facility] CPT-4: 19382 05/26/2019 ([id number]) OFFICE/OUTPATIENT VISIT EST Diagnosis: Chronic obstructive pulmonary disease, unspecified[ICD10: J44.9] Diagnosis: Pulmonary fibrosis[ICD10: J84.10] Diagnosis: Intermittent stridor[ICD10: R06.1] Diagnosis: Muscle weakness[ICD10: M62.81] Belia HSUQUELINE Bushra Mayda ANUSHKA Helijia [facility] CPT-4: 99140 05/13/2019 ([id number]) OFFICE/OUTPATIENT VISIT EST Diagnosis: Stridor[ICD10: R06.1] Diagnosis: COUGH[ICD10: R05] Belia Zacharynilson BRUNSON BushraMayda ANUSHKA Helijia [facility] CPT-4: 23955 05/06/2019 ([id number]) OFFICE/OUTPATIENT VISIT EST Diagnosis: Stridor[ICD10: R06.1] Diagnosis: Muscle, jerky movements (uncontrolled)[ICD10: G25.5] Belia Zacharynilson BRUNSON BushraMayda LUISER Helijia [facility] CPT-4: 71626 04/29/2019 ([id number]) OFFICE/OUTPATIENT VISIT EST Diagnosis: Upper respiratory infection[ICD10: J06.9] Diagnosis: Flank pain[ICD10: R10.9] Diagnosis: Weight gain[ICD10: R63.5] Pattie Floresjuan BRUNSON BushraMayda ZACHARY NDESudhir Helijia [facility] CPT-4: 33299 04/16/2019 ([id number]) OFFICE/OUTPATIENT VISIT EST Diagnosis: Generalized pruritus[ICD10: L29.9] Belia SALAZAR BushraaMyda ZACHARYNDOTONIEL Helijia [facility] CPT-4: 32870 04/08/2019 ([id number]) OFFICE/OUTPATIENT VISIT EST Diagnosis: Acute bursitis of left shoulder[ICD10: M75.52] Diagnosis: Cervicalgia[ICD10: M54.2] Diagnosis: Chest wall pain[ICD10: R07.89] Belia BRUNSON Bushra Mayda ANUSHKA Helijia [facility] CPT-4: 78907 01/22/2019 ([id number]) OFFICE/OUTPATIENT VISIT EST Diagnosis: Abdominal pain[ICD10: R10.9] Diagnosis: Pyelonephritis[ICD10: N12] Pattie Nortonarely Shi RAND ALBERTO Helijia [facility] CPT-4: 34932 01/07/2019 ([id number]) OFFICE/OUTPATIENT VISIT EST Diagnosis: Low back pain[ICD10: M54.5] Diagnosis: Left lumbar radiculopathy[ICD10: M54.16] Diagnosis: Left flank pain[ICD10: R10.9] Diagnosis: Left lower quadrant pain[ICD10: R10.32] Diagnosis: FLU VACCINE[ICD10: Z23] Belia FREDERICK [facility] CPT-4: 12413 12/24/2018 ([id number]) OFFICE/OUTPATIENT VISIT EST Diagnosis: Migraine, unspecified, not intractable, without status migrainosus[ICD10: G43.909] Diagnosis: Fibromyalgia[ICD10: M79.7] Belia DOMINGUEZ [facility] CPT-4: 04701 11/20/2018 ([id number]) OFFICE/OUTPATIENT VISIT EST Diagnosis: Migraine, unspecified, intractable, without status migrainosus[ICD10: G43.919] Diagnosis: Acute sinusitis, unspecified[ICD10: J01.90] Pattie REID DO [facility] CPT-4: 54300 11/04/2018 ([id number]) OFFICE/OUTPATIENT VISIT EST Diagnosis: Pain in left wrist[ICD10: M25.532] Diagnosis: Other dorsalgia[ICD10: M54.89] Pattie REID DO [facility] CPT-4: 06055 09/08/2018 ([id number]) OFFICE/OUTPATIENT VISIT EST Diagnosis: Acute stress reaction[ICD10: F43.0] Diagnosis: Pruritus, unspecified[ICD10: L29.9] 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, 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] Belia REID [facility] CPT-4: 84717 08/20/2018 ([id number]) OFFICE/OUTPATIENT VISIT EST Diagnosis: Hypotension due to drugs[ICD10: I95.2] Diagnosis: Paroxysmal atrial fibrillation[ICD10: I48.0] Diagnosis: Localized edema[ICD10: R60.0] Belia REID [facility] CPT-4: 85682 06/19/2018 ([id number]) OFFICE/OUTPATIENT VISIT EST Diagnosis: Generalized hyperhidrosis[ICD10: R61] Diagnosis: Essential (primary) hypertension[ICD10: I10] Diagnosis: Supraventricular tachycardia[ICD10: I47.1] Belia REID DO [facility] CPT-4: 74845 06/09/2018 ([id number]) OFFICE/OUTPATIENT VISIT EST Diagnosis: Stridor[ICD10: R06.1] Diagnosis: Dependence on supplemental oxygen[ICD10: Z99.81] Diagnosis: Weakness[ICD10: R53.1] Diagnosis: Supraventricular tachycardia[ICD10: I47.1] Belia REID DO [facility] CPT-4: 38670 05/21/2018 ([id number]) OFFICE/OUTPATIENT VISIT EST Diagnosis: Cervical disc disorder with radiculopathy, unspecified cervical region[ICD10: M50.10] Belia REID DO [facility] CPT-4: 39347 04/16/2018 ([id number]) OFFICE/OUTPATIENT VISIT EST Diagnosis: Migraine, unspecified, intractable, without status migrainosus[ICD10: G43.919] Diagnosis: Fibromyalgia[ICD10: M79.7] Pattie DOMINGUEZ [facility] CPT-4: 63993 04/01/2018 ([id number]) NURSE/OUTPATIENT VISIT EST Diagnosis: Hematuria, unspecified[ICD10: R31.9] Diagnosis: Dysuria[ICD10: R30.0] Belia REID DO [facility] CPT-4: 09919 03/17/2018 ([id number]) OFFICE/OUTPATIENT VISIT EST Diagnosis: Erythema intertrigo[ICD10: L30.4] Diagnosis: Chronic obstructive pulmonary disease with (acute) exacerbation[ICD10: J44.1] Diagnosis: Type 2 diabetes mellitus with hyperglycemia[ICD10: E11.65] Belia REID DO [facility] CPT-4: 88072 03/06/2018 ([id number]) OFFICE/OUTPATIENT VISIT EST Diagnosis: Cervicalgia[ICD10: M54.2] Pattiemay AMBRIZ [facility] CPT-4: 71368 02/05/2018 ([id number]) OFFICE/OUTPATIENT VISIT EST Diagnosis: Candidiasis of skin and nail[ICD10: B37.2] Diagnosis: Cervicalgia[ICD10: M54.2] Pattie AMBRIZ [facility] CPT-4: 60289 01/20/2018 ([id number]) OFFICE/OUTPATIENT VISIT EST Diagnosis: Pain in thoracic spine[ICD10: M54.6] Diagnosis: Radiculopathy, thoracic region[ICD10: M54.14] Belia REID [facility] CPT-4: 76736 12/25/2017 ([id number]) OFFICE/OUTPATIENT VISIT EST Diagnosis: Pain in thoracic spine[ICD10: M54.6] Diagnosis: Other muscle spasm[ICD10: M62.838] Diagnosis: FLU VACCINE[ICD10: Z23] Diagnosis: PNEUMOCOCCAL VACCINE[ICD10: Z23] [facility]: 65571 12/17/2017 ([id number]) OFFICE/OUTPATIENT VISIT EST Diagnosis: Chronic obstructive pulmonary disease with (acute) exacerbation[ICD10: J44.1] Belia REID [facility] CPT- 4: 62810 10/30/2017 ([id number]) OFFICE/OUTPATIENT VISIT EST Diagnosis: Chronic obstructive pulmonary disease with acute lower respiratory infection[ICD10: J44.0] Diagnosis: Mild intermittent asthma with (acute) exacerbation[ICD10: J45.21] Belia REID [facility] CPT-4: 35725 10/23/2017 ([id number]) NURSE/OUTPATIENT VISIT EST Diagnosis: Migraine, unspecified, not intractable, without status migrainosus[ICD10: G43.909] Belia REID [facility] CPT - 4: 51915 08/26/2017 ([id number]) OFFICE/OUTPATIENT VISIT EST Diagnosis: Urinary tract infection, site not specified[ICD10: N39.0] Diagnosis: Encounter for screening for osteoporosis[ICD10: Z13.820] Diagnosis: Encounter for screening mammogram for malignant neoplasm of breast[ICD10: Z12.31] Diagnosis: Acute bronchitis, unspecified[ICD10: J20.9] Pattie REID DO [facility] CPT-4: 20615 07/19/2017 ([id number]) OFFICE/OUTPATIENT VISIT EST Diagnosis: Rash and other nonspecific skin eruption[ICD10: R21] Pattie REID DO [facility] CPT-4: 59028 05/29/2017 ([id number]) OFFICE/OUTPATIENT VISIT EST Diagnosis: Diarrhea, unspecified[ICD10: R19.7] Diagnosis: Tinea corporis[ICD10: B35.4] Diagnosis: Tinea cruris[ICD10: B35.6] Diagnosis: Migraine, unspecified, not intractable, without status migrainosus[ICD10: G43.909] Belia REID Helijia [facility] CPT - 4: 27216 05/07/2017 ([id number]) OFFICE/OUTPATIENT VISIT EST Diagnosis: Stridor[ICD10: R06.1] Diagnosis: Chronic obstructive pulmonary disease with (acute) exacerbation[ICD10: J44.1] Belia REID Helijia [facility] CPT- 4: 85503 03/18/2017 ([id number]) OFFICE/OUTPATIENT VISIT EST Diagnosis: Type 2 diabetes mellitus with hyperglycemia[ICD10: E11.65] Belia REID Helijia [facility] CPT-4: 43371 02/27/2017 OFFICE/OUTPATIENT VISIT EST Diagnosis: Type 2 diabetes mellitus with hyperglycemia[ICD10: E11.65] Pattie REID DO [facility] CPT-4: 29008 02/22/2017 ([id number]) OFFICE/OUTPATIENT VISIT EST Diagnosis: Urinary tract infection, site not specified[ICD10: N39.0] Diagnosis: Pneumonia, unspecified organism[ICD10: J18.9] Diagnosis: Type 2 diabetes mellitus with hyperglycemia[ICD10: E11.65] Belia REID DO [facility] CPT-4: 47122 01/23/2017 ([id number]) OFFICE/OUTPATIENT VISIT EST Diagnosis: Type 2 diabetes mellitus with hyperglycemia[ICD10: E11.65] Diagnosis: Localized edema[ICD10: R60.0] Diagnosis: PNEUMOCOCCAL VACCINE[ICD10: Z23] Diagnosis: FLU VACCINE[ICD10: Z23] Belia FREDERICK DO [facility] CPT-4: 39552 12/20/2016 OFFICE/OUTPATIENT VISIT EST Diagnosis: Pain in thoracic spine[ICD10: M54.6] Diagnosis: Low back pain[ICD10: M54.5] Diagnosis: Cervicalgia[ICD10: M54.2] Diagnosis: Cough[ICD10: R05] Celeste WaldenRenate BELIA REID [facility] CPT-4: 42151 10/08/2016 ([id number]) OFFICE/OUTPATIENT VISIT EST Diagnosis: Primary insomnia[ICD10: F51.01] Diagnosis: Migraine, unspecified, not intractable, without status migrainosus[ICD10: G43.909] Diagnosis: Type 2 diabetes mellitus with hyperglycemia[ICD10: E11.65] Belia REID [facility] CPT-4: 22730 09/19/2016 ([id number]) OFFICE/OUTPATIENT VISIT EST Diagnosis: Migraine, unspecified, not intractable, without status migrainosus[ICD10: G43.909] Diagnosis: Generalized abdominal pain[ICD10: R10.84] Diagnosis: Cough[ICD10: R05] Belia REID DO [facility] CPT-4: 67159 08/20/2016 ([id number]) OFFICE/OUTPATIENT VISIT EST Diagnosis: Chronic obstructive pulmonary disease, unspecified[ICD10: J44.9] Diagnosis: Stridor[ICD10: R06.1] Belia REID DO [facility] CPT-4: 67549 06/19/2016 ([id number]) OFFICE/OUTPATIENT VISIT EST Diagnosis: Chronic obstructive pulmonary disease, unspecified[ICD10: J44.9] Diagnosis: Personal history of urinary (tract) infections[ICD10: Z87.440] Belia REID [facility] CPT-4: 44946 06/04/2016 ([id number]) OFFICE/OUTPATIENT VISIT EST Diagnosis: Stridor[ICD10: R06.1] Diagnosis: Chronic obstructive pulmonary disease with acute lower respiratory infection[ICD10: J44.0] Diagnosis: Other specified diseases of intestine[ICD10: K63.89] Diagnosis: Cystitis, unspecified without hematuria[ICD10: N30.90] Belia REID Helijia [facility] CPT-4: 08362 05/02/2016 ([id number]) OFFICE/OUTPATIENT VISIT EST Diagnosis: Fibromyalgia[ICD10: M79.7] Diagnosis: Urinary tract infection, site not specified[ICD10: N39.0] Belia REID DO [facility] CPT-4: 13686 04/03/2016 ([id number]) OFFICE/OUTPATIENT VISIT EST Diagnosis: Unspecified asthma, uncomplicated[ICD10: J45.909] Diagnosis: Cough[ICD10: R05] Lidia REID Helijia [facility] T-4: 16583 02/29/2016 ([id number]) OFFICE/OUTPATIENT VISIT EST Diagnosis: Migraine, unspecified, intractable, without status migrainosus[ICD10: G43.919] Diagnosis: Urinary tract infection, site not specified[ICD10: N39.0] Belia REID Helijia [facility] CPT-4: 09898 02/02/2016 ([id number]) OFFICE/OUTPATIENT VISIT EST Diagnosis: Urinary tract infection, site not specified[ICD10: N39.0] Diagnosis: Unspecified abdominal pain[ICD10: R10.9] Diagnosis: Pain in thoracic spine[ICD10: M54.6] Diagnosis: Type 2 diabetes mellitus with diabetic neuropathic arthropathy[ICD10: E11.610] Belia REID Helijia [facility] CPT-4: 80969 12/05/2015 ([id number]) OFFICE/OUTPATIENT VISIT EST Diagnosis: Chronic obstructive pulmonary disease with (acute) exacerbation[ICD10: J44.1] Diagnosis: Migraine, unspecified, not intractable, without status migrainosus[ICD10: G43.909] Lidia REID Helijia [facility] CPT -4: 35844 10/26/2015 ([id number]) OFFICE/OUTPATIENT VISIT EST Diagnosis: Hematuria, unspecified[ICD10: R31.9] Diagnosis: Urinary tract infection, site not specified[ICD10: N39.0] Lidia HSUQUELINE Yuridia REID [facility] CPT-4: 93128 10/05/2015 OFFICE/OUTPATIENT VISIT EST Diagnosis: Chronic obstructive pulmonary disease, unspecified[ICD10: J44.9] Diagnosis: Muscle weakness (generalized)[ICD10: M62.81] Diagnosis: Polyneuropathy, unspecified[ICD10: G62.9] Diagnosis: Other intervertebral disc degeneration, 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] Diagnosis: Fibromyalgia[ICD10: M79.7] Belia HSUQUELINE Yuridia DOMINGUEZ [facility] CPT-4: 91337 09/15/2015 ([id number]) OFFICE/OUTPATIENT VISIT EST Diagnosis: Disorientation, unspecified[ICD10: R41.0] Diagnosis: Headache[ICD10: R51] Diagnosis: Paresthesia of skin[ICD10: R20.2] Lidia Hwang KOFFI Paredes BushraMayda ANUSHKA [facility] CPT-4: 70566 08/24/2015 ([id number]) OFFICE/OUTPATIENT VISIT EST Diagnosis: Type 2 diabetes mellitus with hyperglycemia[ICD10: E11.65] Diagnosis: Chronic obstructive pulmonary disease with acute lower respiratory infection[ICD10: J44.0] Belia Anushka CORNELLLINE BushraMayda ANUSHKA [facility] CPT-4: 86635 07/05/2015 ([id number]) OFFICE/OUTPATIENT VISIT EST Diagnosis: Mild intermittent asthma with (acute) exacerbation[ICD10: J45.21] Diagnosis: Chronic obstructive pulmonary disease, unspecified[ICD10: J44.9] Belia Anushka BELIA BushraMayda ANUSHKA [facility] CPT-4: 16546 06/06/2015 ([id number]) OFFICE/OUTPATIENT VISIT EST Diagnosis: Chronic obstructive pulmonary disease with (acute) exacerbation[ICD10: J44.1] Lidianick Hwang BELIA BushraMayda ANUSHKA [facility] CPT- 4: 88904 05/23/2015 ([id number]) OFFICE/OUTPATIENT VISIT EST Diagnosis: Type 2 diabetes mellitus with hyperglycemia[ICD10: E11.65] Diagnosis: Functional dyspepsia[ICD10: K30] Belia BRUNSON [facility]da [facility] CPT-[facility]: 51199 05/05/2015 ([id number]) OFFICE/OUTPATIENT VISIT EST Diagnosis: Type 2 diabetes mellitus with hyperglycemia[ICD10: E11.65] Diagnosis: Glycosuria[ICD10: R81] Diagnosis: Urinary tract infection, site not specified[ICD10: N39.0] [facility]: 10863 03/30/2015 ([id number]) OFFICE/OUTPATIENT VISIT EST Diagnosis: Generalized abdominal pain[ICD10: R10.84] Diagnosis: Diarrhea, unspecified[ICD10: R19.7] Diagnosis: Urinary tract infection, site not specified[ICD10: N39.0] Diagnosis: Gastro-esophageal reflux disease without esophagitis[ICD10: K21.9] [facility] CPT[facility]: 29535 02/03/2015 ([id number]) OFFICE/OUTPATIENT VISIT EST Diagnosis: Other specified noninflammatory disorders of vagina[ICD10: N89.8] Diagnosis: Follicular disorder, unspecified[ICD10: L73.9] Diagnosis: Functional dyspepsia[ICD10: K30] Diagnosis: FLU VACCINE[ICD10: Z23] Belia [facility] CPT-4: 77993 12/29/2014 ([id number]) OFFICE/OUTPATIENT VISIT EST 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] Diagnosis: RESTLESS LEGS SYNDROME[ICD9: 333.94] Diagnosis: MIGRAINE NOS/NOT INTRCBL[ICD9: 346.90] Belia Zacharybeckyotoniel Shi [facility] CPT-4: 79359 09/02/2014 ([id number]) OFFICE/OUTPATIENT VISIT EST Diagnosis: Cervical radiculopathy[ICD9: 723.4] Diagnosis: Cervicalgia[ICD9: 723.1] Diagnosis: Degenerative disc disease, cervical[ICD9: 722.4] 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I[ICD9: 250.00] [facility]iahanna [facility] CPT-[facility]: 39277 04/01/2014 OFFICE/OUTPATIENT VISIT EST Diagnosis: Reactive airway disease[ICD9: 493.90] Belia REID DO [facility] CPT-4: 26177 03/16/2014 ([id number]) OFFICE/OUTPATIENT VISIT EST Diagnosis: BRONCHITIS, ACUTE[ICD9: 466.0] Diagnosis: Reactive airway disease[ICD9: 493.90] Belia REID DO [facility] CPT-4: 20955 03/09/2014 OFFICE/OUTPATIENT VISIT EST Diagnosis: BRONCHITIS, ACUTE[ICD9: 466.0] Diagnosis: WHEEZING[ICD9: 786.07] Huong Peguero [facility] CPT-4: 93339 03/03/2014 OFFICE/OUTPATIENT VISIT EST Diagnosis: BRONCHITIS, ACUTE[ICD9: 466.0] Diagnosis: WHEEZING[ICD9: 786.07] Huong Peguero [facility] CPT-4: 26493 03/01/2014 ([id number]) OFFICE/OUTPATIENT VISIT EST Diagnosis: GERD[ICD9: 530.81] Diagnosis: ARTHRALGIA-MULTIPLE SITES[ICD9: 719.49] Diagnosis: LUMB/LUMBOSAC DISC DEGEN[ICD9: 722.52] Diagnosis: - I - FIBROMYALGIA[ICD9: 729.1] Belia CORNELLLINE BushraMayda ANUSHKA [facility] CPT-4: 58271 02/09/2014 ([id number]) OFFICE/OUTPATIENT VISIT EST Diagnosis: Peptic ulcer disease[ICD9: 533.90] Diagnosis: RESTLESS LEGS SYNDROME[ICD9: 333.94] Diagnosis: Neuropathy[ICD9: 355.9] Belia Zacharynilson HSUBELIA Yuridia FREDERICK [facility] CPT-4: 50628 12/23/2013 ([id number]) OFFICE/OUTPATIENT VISIT EST Diagnosis: URINARY TRACT INFECTION[ICD9: 599.0] Beliahanna ARNOLD BushraMayda ANUSHKA [facility] CPT-4: 54744 10/30/2013 ([id number]) OFFICE/OUTPATIENT VISIT EST Diagnosis: Flank pain[ICD9: 789.00] Belia BRUNSON BushraMayda KIESHA VIRGILIO [facility] CPT-4: 81119 10/21/2013 ([id number]) OFFICE/OUTPATIENT VISIT EST Diagnosis: INFLAMED SEBORR KERATOS[ICD9: 702.11] Diagnosis: Brachioradial pruritus[ICD9: 698.9] Diagnosis: ASTHMA NOS[ICD9: 493.90] Belia BRUNSON BushraMayda KIESHA [facility] CPT-4: 26774 10/05/2013 ([id number]) OFFICE/OUTPATIENT VISIT EST Diagnosis: HYPERTENSION[ICD9: 401.9] Diagnosis: - I - FIBROMYALGIA[ICD9: 729.1] Diagnosis: DIZZINESS/VERTIGO[ICD9: 780.4] Diagnosis: MIGRAINE NOS/NOT INTRCBL[ICD9: 346.90] Diagnosis: Diabetic peripheral neuropathy[ICD9: 250.60] Diagnosis: Flank pain[ICD9: 789.00] Belia Shi KIESHA [facility] CPT-4: 79554 08/04/2013 ([id number]) OFFICE/OUTPATIENT VISIT EST Diagnosis: ALLERGIC RHINITIS[ICD9: 477.9] [facility]ia [facility]: 46502 07/13/2013 OFFICE/OUTPATIENT VISIT EST Diagnosis: URINARY TRACT INFECTION[ICD9: 599.0] [facility]ong [facility]: 82229 07/03/2013 OFFICE/OUTPATIENT VISIT EST Diagnosis: HYPERTENSION[ICD9: 401.9] Diagnosis: URINARY TRACT INFECTION[ICD9: 599.0] Diagnosis: BACKACHE[ICD9: 724.5] Diagnosis: URINARY INCONTINENCE[ICD9: 788.30] Huong [facility] CPT-4: 78143 05/27/2013 ([id number]) OFFICE/OUTPATIENT VISIT EST Diagnosis: Flank pain[ICD9: 789.00] Belia BRUNSON BushraMayda KIESHA [facility] CPT-4: 05513 05/25/2013 ([id number]) OFFICE/OUTPATIENT VISIT EST Diagnosis: B-COMPLEX DEFIC NEC[ICD9: 266.2] [facility]ia Shi [facility] CPT-[facility]: 03760 05/04/2013 ([id number]) OFFICE/OUTPATIENT VISIT EST Diagnosis: ALLERGIC RHINITIS[ICD9: 477.9] Diagnosis: Vitamin B12 deficiency[ICD9: 266.2] Belia Humphriesnilson ARACELISROBERTOFelicita DONNA Yuridia REID [facility] CPT-4: 32157 04/17/2013 ([id number]) OFFICE/OUTPATIENT VISIT EST 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I[ICD9: 250.00] Diagnosis: URINARY TRACT INFECTION[ICD9: 599.0] Diagnosis: DIZZINESS/VERTIGO[ICD9: 780.4] Diagnosis: DIARRHEA[ICD9: 787.91] Belia Humphriesnilson BRUNSON BushraMayda RALF Peguero [facility] CPT-4: 87714 04/06/2013 ([id number]) OFFICE/OUTPATIENT VISIT EST Diagnosis: URINARY TRACT INFECTION[ICD9: 599.0] Diagnosis: URINARY RETENTION[ICD9: 788.20] Belia Zacharybeckyotoniel HSUBELIA BushraMayda ANUSHKA [facility] CPT-4: 94114 11/10/2012 ([id number]) OFFICE/OUTPATIENT VISIT EST Diagnosis: TACHYCARDIA[ICD9: 785.0] Diagnosis: SYNCOPE AND COLLAPSE[ICD9: 780.2] Diagnosis: CONSCIOUSNS ALTERAT NEC[ICD9: 780.09] Belia HSUPAUL LUBNA BushraMayda ANUSHKA [facility] CPT-4: 45028 09/02/2012 OFFICE/OUTPATIENT VISIT EST Diagnosis: TACHYCARDIA[ICD9: 785.0] Diagnosis: SYNCOPE AND COLLAPSE[ICD9: 780.2] Beliahanna Paredes BushraMayda ANUSHKA [facility] CPT-4: 28919 08/04/2012 ([id number]) OFFICE/OUTPATIENT VISIT EST Diagnosis: Loss of consciousness[ICD9: 780.09] Diagnosis: Tachycardia[ICD9: 785.0] Diagnosis: MALAISE AND FATIGUE[ICD9: 780.79] Belia Paredes BushraMayda ANUSHKA [facility] CPT-4: 30704 07/21/2012 ([id number]) OFFICE/OUTPATIENT VISIT EST Diagnosis: BRONCHITIS, ACUTE[ICD9: 466.0] Diagnosis: ASTHMA NOS[ICD9: 493.90] Belia Shi KIESHARegino POOLE [facility] CPT-4: 98334 07/02/2012 ([id number]) OFFICE/OUTPATIENT VISIT EST Diagnosis: CEPHALGIA[ICD9: 784.0] Belia Peguero [facility] CPT-4: 26527 06/25/2012 ([id number]) OFFICE/OUTPATIENT VISIT EST Diagnosis: GERD[ICD9: 530.81] Diagnosis: DIARRHEA[ICD9: 787.91] Diagnosis: URINARY TRACT INFECTION[ICD9: 599.0] Diagnosis: ASTHMA NOS[ICD9: 493.90] Diagnosis: ALLERGIC RHINITIS[ICD9: 477.9] Belia Tomlinson Mayda ANUSHKA Helijia [facility] CPT-4: 58685 06/24/2012 ([id number]) OFFICE/OUTPATIENT VISIT EST Diagnosis: MIGRAINE NOS/NOT INTRCBL[ICD9: 346.90] Diagnosis: TREMOR NEC[ICD9: 333.1] Diagnosis: CHRONIC PAIN SYNDROME[ICD9: 338.4] Belia BASS MARIE BushraMayda ANUSHKA Helij[facility] CPT-4: 89282 05/20/2012 ([id number]) OFFICE/OUTPATIENT VISIT EST Diagnosis: DIZZINESS/VERTIGO[ICD9: 780.4] Diagnosis: PALPITATIONS[ICD9: 785.1] Diagnosis: TREMOR NEC[ICD9: 333.1] Diagnosis: ANXIETY STATE NOS[ICD9: 300.00] Diagnosis: POSTTRAUMATIC STRESS DISORDER[ICD9: 309.81] Belia CORNELLLINE BushraMayda ANUSHKA [facility] CPT-4: 11889 05/08/2012 ([id number]) OFFICE/OUTPATIENT VISIT EST Diagnosis: MIGRAINE NOS/NOT INTRCBL[ICD9: 346.90] Diagnosis: FIBROMYALGIA[ICD9: 729.1] Diagnosis: SYNCOPE AND COLLAPSE[ICD9: 780.2] Diagnosis: Diabetic peripheral neuropathy[ICD9: 250.60] Belia CORNELLLINE BushraMayda ANUSHKA Helijia [facility] CPT-4: 91759 04/22/2012 OFFICE/OUTPATIENT VISIT EST Diagnosis: ROTATOR CUFF DIS NEC[ICD9: 726.19] Diagnosis: JOINT PAIN-SHLDER[ICD9: 719.41] Diagnosis: DYSPEPSIA[ICD9: 536.8] Belializ Reid BELIA BushraMayda RALF Peguero Helij[facility] CPT-4: 20965 02/13/2012 ([id number]) OFFICE/OUTPATIENT VISIT EST Diagnosis: MIGRAINE NOS/NOT INTRCBL[ICD9: 346.90] Diagnosis: GERD[ICD9: 530.81] Diagnosis: DYSPEPSIA[ICD9: 536.8] Belia Peguero [facility] CPT-4: 70928 01/28/2012 OFFICE/OUTPATIENT VISIT EST Diagnosis: CEPHALGIA[ICD9: 784.0] Diagnosis: MIGRAINE NOS/NOT INTRCBL[ICD9: 346.90] Diagnosis: GERD[ICD9: 530.81] Diagnosis: INSOMNIA NOS[ICD9: 780.52] Belia CORNELLLINE Yuridia DOMINGUEZ [facility] CPT-4: 40503 12/26/2011 ([id number]) OFFICE/OUTPATIENT VISIT EST Diagnosis: CEPHALGIA[ICD9: 784.0] Diagnosis: MIGRAINE NOS/NOT INTRCBL[ICD9: 346.90] Diagnosis: MALAISE AND FATIGUE[ICD9: 780.79] Diagnosis: FIBROMYALGIA[ICD9: 729.1] Diagnosis: ALLERGIC RHINITIS[ICD9: 477.9] Belia CORNELLLINE Bushra Mayda ANUSHKA [facility] CPT-4: 79376 11/14/2011 ([id number]) OFFICE/OUTPATIENT VISIT EST Diagnosis: MALAISE AND FATIGUE[ICD9: 780.79] Diagnosis: MUSCLE WEAKNESS-GENERAL[ICD9: 728.87] Diagnosis: MIGRAINE NOS/NOT INTRCBL[ICD9: 346.90] Diagnosis: JOINT PAIN-SHLDER[ICD9: 719.41] Belia Anushka CORNELLLINE BushraMayda ANUSHKA [facility] CPT-4: 50206 09/12/2011 ([id number]) OFFICE/OUTPATIENT VISIT EST Diagnosis: CONCUSSION[ICD9: 850.9] Diagnosis: Ataxia[ICD9: 781.3] Diagnosis: DIZZINESS/VERTIGO[ICD9: 780.4] Belia CORNELLLINE Bushra Mayda ANUSHKA [facility] CPT-4: 63815 08/15/2011 ([id number]) OFFICE/OUTPATIENT VISIT EST Diagnosis: THROMBOPHLEBITIS[ICD9: 451.9] Diagnosis: Subacromial bursitis[ICD9: 726.19] Diagnosis: ALLERGIC RHINITIS[ICD9: 477.9] Diagnosis: Lipoma[ICD9: 214.9] Belia REID [facility] CPT-4: 17557 08/09/2011 ([id number]) OFFICE/OUTPATIENT VISIT EST Diagnosis: THROMBOPHLEBITIS[ICD9: 451.9] Diagnosis: Arm pain[ICD9: 729.5] Diagnosis: Clostridium difficile colitis[ICD9: 008.45] Diagnosis: URINARY TRACT INFECTION[ICD9: 599.0] [facility]: 76076 07/03/2011 ([id number]) OFFICE/OUTPATIENT VISIT EST Diagnosis: ARTHRALGIA-MULTIPLE SITES[ICD9: 719.49] Diagnosis: Muscle cramp[ICD9: 729.82] Diagnosis: INSOMNIA NOS[ICD9: 780.52] [facility]: 36987 06/04/2011 OFFICE/OUTPATIENT VISIT EST Diagnosis: Headache[ICD9: 784.0] Diagnosis: Allergic rhinitis[ICD9: 477.9] Belia REID [facility] CPT-4: 05654 05/03/2011 OFFICE/OUTPATIENT VISIT EST Diagnosis: LUMB/LUMBOSAC DISC DEGEN[ICD9: 722.52] Diagnosis: MIGRAINE NOS/NOT INTRCBL[ICD9: 346.90] Diagnosis: CHRONIC PAIN SYNDROME[ICD9: 338.4] Diagnosis: RESTLESS LEGS SYNDROME[ICD9: 333.94] [facility] CPT-[facility]: 02306 04/05/2011 OFFICE/OUTPATIENT VISIT EST Diagnosis: MIGRAINE NOS/NOT INTRCBL[ICD9: 346.90] Diagnosis: GERD[ICD9: 530.81] Belia REID [facility] CPT-4: 39326 03/08/2011 OFFICE/OUTPATIENT VISIT EST Diagnosis: URINARY TRACT INFECTION[ICD9: 599.0] Diagnosis: Vertigo[ICD9: 780.4] Diagnosis: GERD[ICD9: 530.81] Belia REID [facility] CPT-4: 04975 01/24/2011 OFFICE/OUTPATIENT VISIT EST Diagnosis: Hypotension[ICD9: 458.9] Diagnosis: Syncopal episodes[ICD9: 780.2] Diagnosis: MIGRAINE NOS/NOT INTRCBL[ICD9: 346.90] Diagnosis: MALAISE AND FATIGUE[ICD9: 780.79] Belia Shi ZACHARYNDER DO [facility] CPT-4: 23965 01/02/2011 OFFICE/OUTPATIENT VISIT EST Diagnosis: Tinea cruris[ICD9: 110.3] Diagnosis: Intertrigo[ICD9: 695.89] Diagnosis: MIGRAINE NOS/NOT INTRCBL[ICD9: 346.90] Belia COKER SMayda ZACHARYNDER [facility] CPT-4: 40901 12/07/2010 OFFICE/OUTPATIENT VISIT EST Diagnosis: PALPITATIONS[ICD9: 785.1] Diagnosis: ANXIETY STATE NOS[ICD9: 300.00] Belia Shi ZACHARYNDER [facility] CPT-4: 79288 11/16/2010 OFFICE/OUTPATIENT VISIT EST Diagnosis: URINARY TRACT INFECTION[ICD9: 599.0] Diagnosis: MIGRAINE NOS/NOT INTRCBL[ICD9: 346.90] Iraida COKER SMayda ZACHARYNDER [facility] CPT-4: 19854 11/02/2010 OFFICE/OUTPATIENT VISIT EST Diagnosis: ALLERGIC RHINITIS[ICD9: 477.9] Diagnosis: ANXIETY STATE NOS[ICD9: 300.00] Belia SMITHER DO [facility] CPT-4: 85227 10/18/2010 OFFICE/OUTPATIENT VISIT EST Belia HUMPHRIES NDER DO [facility] CPT- 4: 36057 09/19/2010 OFFICE/OUTPATIENT VISIT EST Belia HUMPHRIES NDER DO [facility] CPT- 4: 11857 09/06/2010 ([id number]) OFFICE/OUTPATIENT VISIT EST Belia COKER SMayda ORENDER DO [facility] CPT-4: 09611 08/10/2010 ([id number]) OFFICE/OUTPATIENT VISIT EST Belia COKER SMayda [facility] DO [facility] CPT-4: 88376 05/11/2010 ([id number]) OFFICE/OUTPATIENT VISIT, EST Belia [facility] CPT-4: 21882 04/06/2010 ([id number]) OFFICE/OUTPATIENT VISIT, EST Belia [facility] CPT-4: 88423 02/09/2010 ([id number]) OFFICE/OUTPATIENT VISIT, EST Belia [facility] CPT-4: 97501 01/05/2010 ([id number]) OFFICE/OUTPATIENT VISIT, EST Belia [facility] CPT-4: 62218 12/07/2009 ([id number]) OFFICE/OUTPATIENT VISIT, EST Belia [facility] CPT-4: 47277 11/08/2009 ([id number]) OFFICE/OUTPATIENT VISIT, EST Belia [facility] CPT-4: 03352 10/24/2009 ([id number]) OFFICE/OUTPATIENT VISIT, EST Belia [facility] CPT-4: 04615 07/25/2009 ([id number]) OFFICE/OUTPATIENT VISIT, EST Belia [facility] CPT-4: 96139 05/26/2009 Plan of Care Planned Activity Notes [...] R50.9 05/26/2019 Appointment: Bel[facility] [phone] [id number] [facility] 05/26/2019 Appointment: Pattie Sotomayor [address] [place], [place] [phone] US RESCHEDULED 05/18/2019 Visit Diagnosis Plan: Chronic obstructive pulmonary di sease, unspecified Discussion: Recommend pulmonary rehab Patient states she never went to pulmonary rehab due to cost as well as transportation issues Finish trelagy Stop singulair Decrease hydroxyzine to 25mg po q HS Fwup [address] scan of Chest results discussed ICD-9 : 496 ICD-10 : J44.9 05/13/2019 Appointment: Belia Reid WPtel: [address] [place], [place] [phone] Hospital Follow Up 05/13/2019 Visit Diagnosis Plan: COUGH Discussion: Check CT scan of chest ICD-9 : 786.2 ICD-10 : R05 05/06/2019 Visit Diagnosis Plan: Stridor Discussion: Add Trelagy 1 p daily Add Singulair May need to see new tinner helper ICD-9 : 786.1 ICD-10 : R06.1 05/06/2019 Appointment: Belia Reid WPtel: [address] [place], [place] [phone] FOLLOW UP 05/06/2019 Patient Education: Singulair- [employer] Coupon [id number] https://www.[employer]ShareMeister/samplemd/resources/getResource/61/[email or web address]-yo Completed 05/06/2019 Appointment: Belia Reid WPtel: [address] [place], [place] [phone] US RESCHEDULED 04/30/2019 Visit Diagnosis Plan: Stridor [...] G25.5 04/29/2019 Appointment: Belia Reid [facility]el[facility] [phone] [id number] [facility] Up 04/29/2019 Patient Education: Valium- [employer] Coupon [id number] https://www.c-LEcta/sampleTwoFish/resources/getResource/61/[email or web address] Completed 04/29/2019 Visit Diagnosis Plan: Flank pain [...] ICD-10 : R63.5 04/16/2019 Appointment: Pattie Sotomayor [address] [place], [place] [phone] 04/16/2019 Patient Education: cyclobenzaprine- [employer] Coupon [id number] https://www.c-LEcta/sampleTwoFish/resources/getResource/61/[email or web address] Completed 04/16/2019 Visit Diagnosis Plan: Migraine, unspecif ied, not intractable, without status migrainosus Discussion: Increase gabapentin to 600mg po BID ICD-9 : 346.90 ICD-10 : G43.909 04/08/2019 Visit Diagnosis Plan: Generalized pruritus Discussion: Hydroxyzine 25mg po TID for itching and anxiety ICD-9 : 698.9 ICD-10 : L29.9 04/08/2019 Appointment: Belia Reid [facility]el[facility] [phone] [id number] [facility] 04/08/2019 Visit Diagnosis Plan: [...] : M75.52 01/22/2019 Appointment: Belia Reid WPtel: [address] [place] [address] Follow Up 01/22/2019 Visit Diagnosis Plan: Abdominal pain Discussion: urine culture sent to assess for any infection. rocephin given in office to cover for pyelonephritis. instructed to push fluids. call office with any new or worsening symptoms. ICD-9 : 789.00 ICD-10 : R10.9 01/07/2019 Appointment: Pattie Sotomayor [address] [place] [address] ACUTE ILLNESS 01/07/2019 Visit Diagnosis Plan: Low back pain Discussion: Stat C T of abdomen/pelvis now ICD-9 : 724.2 ICD-10 : M54.5 12/24/2018 Appointment: Belia Reid WPtel: [address] [place] [address] FOLLOW UP 12/24/2018 Visit Diagnosis Plan: Migraine, [...] : M79.7 11/20/2018 Appointment: Belia Reid WPtel: [address] [place] [address] ACUTE ILLNESS 11/20/2018 Patient Education: baclofen- [employer] Coupon [id number] https://www.[employer]ShareMeister/samplemd/resources/getResource/61/[email or web address] Completed 11/20/2018 Visit Diagnosis Plan: Migraine, unspecif ied, intractable, without status migrainosus Discussion: toradol/phenergan given in o ffice (60 mg toradol, 12.5 mg phenergan). instructed to call if no improvement or worsening. instructed to follow up with auto mechanic apprentice since headaches are occurring more frequently to make sure vision is not the cause. ICD-9 : 346.91 ICD-10 : G43.919 11/04/2018 Visit Diagnosis Plan: Acute sinusitis, unspecified Dis cussion: zithromax prescribed to cover for sinus infection due to length of symptoms and clinincal s/s. ICD-9 : 461.9 ICD-10 : J01.90 11/04/2018 Appointment: Pattie Sotomayor [address] [place], [place] [id number] ACUTE [facility]LLNESS 11/04/2018 Appointment: Belia Reid WPtel: [phone] [facility] US CANCELED 09/24/2018 Visit Diagnosis Plan: Type 2 diabetes me llitus with diabetic neuropathy, unspecified Discussion: Retry gabapentin 300mg po q HS ICD-9 : 250.60 ICD-10 : E11.40 09/18/2018 Visit Diagnosis Plan: Vitamin D deficiency, unspecifie d Discussion: Increase Vitamin D3 to 10,000 u daily ICD-9 : 268.9 ICD-10 : E55.9 09/18/2018 Visit Diagnosis Plan: Encounter for [facility] adult medical examination without abnormal findings [...] I10 09/18/2018 Appointment: Belia Reid WPtel: [phone] [facility] Annual Well Visit 09/18/2018 Patient Education: gabapentin- [employer] Coupon [id number] [email or web address]/getResource/[email or web address] Completed 09/18/2018 Visit Diagnosis Plan: Pain in [...] ICD-10 : M54.89 09/08/2018 Appointment: Pattie Sotomayor [address] [place] [address] ACUTE ILLNESS 09/08/2018 Patient Education: prednisone- [employer] Coupon [id number] [email or web address]://[email or web address]/resources/getResource/[email or web address] Completed 09/08/2018 Visit Diagnosis Plan: Pruritus, unspecified [...] E10.9 08/20/2018 Appointment: Belia Reid WPtel: [phone] ACUTE ILLNESS 08/20/2018 Patient Education: Lexapro- [employer] Coupon [id number] Completed 08/20/2018 Patient Education: hydroxyzine HCl- [employer] Coupon [id number] Completed 08/20/2018 Care Plan: MAMMOGRAM SCREENING LOINC : 2 6347-5 Pending 08/20/2018 Visit Diagnosis Plan: Paroxysmal atrial fibrillation D iscussion: Discuss eliquis need with cardiology at [facility] [facility] ICD-9 : 427.31 ICD-10 : I48.0 06/19/2018 Visit Diagnosis Plan: Hypotension due to drugs Discuss ion: Discussed decreasing cardizem dose due to low BP and edema but sees cardiology next week Follow Up: 1 months ICD-9 : 458.8 ICD-10 : I95.2 06/19/2018 Appointment: Belia Reid WPtel: [address] [place], [place] [phone] [place] FOLLOW UP 06/19/2018 Visit Diagnosis Plan: [...] : R61 06/09/2018 Appointment: Belia Reid WPtel: [address] [place] [phone] [place] FOLLOW UP 06/09/2018 Care Plan: CHEST X-RAY 2VW FRONTAL&LATL LOINC : 21257-0 Pending 05/26/2018 Visit Diagnosis Plan: Supraventricular tachycardia [...] : R53.1 05/21/2018 Appointment: Belia Reid WPtel: [address] [place] [address] Hospital Follow Up 05/21/2018 Visit Diagnosis Plan: Cervical disc diso rder with radiculopathy, unspecified cervical region Discussion: Scheduled for surgery on 06/02 10/[address] Faulkner ICD-9 : 722.0 ICD-10 : M50.10 04/16/2018 Appointment: Belia Reid WPtel: [address] [place] [address] Follow Up 04/16/2018 Visit Diagnosis Plan: Fibromyalgia [...] ICD-10 : G43.919 04/01/2018 Appointment: Pattie Sotomayor [address] [place] [address] ACUTE ILLNESS 04/01/2018 Appointment: Belia Reid WPtel: [address] [place] [address] UA 03/17/2018 Visit Diagnosis Plan: Chronic obstructiv e [...] 250.02 ICD-10 : E11.65 03/06/2018 Appointment: Belia Reidtel: [phone] [facility] Hospital Follow Up 03/06/2018 Visit Diagnosis Plan: Cervicalgia Discussion: spoke wi th dr. reid about patient. increased gabapentin to bid and started on celebrex bid. tramadrol rx written out to take prn. keep scheduled appt next week for myelogram. ICD-9 : 723.1 ICD-10 : M54.2 02/05/2018 Appointment: Pattie Sotomayor [address] [place] [address] ACUTE ILLNESS 02/05/2018 Care Plan: X-RAY EXAM NECK SPINE 4/5VWS cervical LOINC : 83311-5 Pending 01/21/2018 Visit Diagnosis Plan: Candidiasis of [...] ICD-10 : M54.2 01/20/2018 Appointment: Pattie Sotomayor [address] [place] [address] ACUTE ILLNESS 01/20/2018 Visit Diagnosis Plan: Pain in thoracic spine Discussio n: Proceed with CT scan of thoracic spine Will likely need PT ICD-9 : 724.1 ICD-10 : M54.6 12/25/2017 Appointment: [facility]el[phone] [facility] 12/25/2017 Care Plan: CT THORAX W/O DYE LOINC : 473 66-0 Pending 12/25/2017 Visit Diagnosis Plan: Pain in thoracic spine Discussio n: Stretches Alternated heat/ice Topical aspercreme with lidocaine Flexeril Recheck 1 week Flu and Pneumovax given ICD-9 : 724.1 ICD-10 : M54.6 12/17/2017 Appointment: Belia Reid WPtel: [address] [place] [address] ACUTE ILLNESS 12/17/2017 Patient Education: Patient Medication [...] : J44.1 10/30/2017 Appointment: Belia Reid WPtel: [address] [place] [address] FOLLOW UP 10/30/2017 Patient Education: Patient Medication Summary Completed 10/30/2017 Visit Diagnosis Plan: Chronic obstructiv e pulmonary disease with acute lower respiratory infection Discussion: Continue SVNs with albuterol q4hrs Add Trelagy 1 inhalation daily Finish steroids Increase water intake Follow Up: 1 weeks ICD-9 : 496 ICD-10 : J44.0 10/23/2017 Appointment: Belia Reid WPtel: [address] [place] [address] WORK IN 10/23/2017 Patient Education: Patient Medication Summary Completed 10/23/2017 Appointment: Belia Reidtel: [address] [place] [address] NO SHOW 10/16/2017 Visit Diagnosis Plan: Confusional [...] E11.65 09/17/2017 Appointment: Belia Reid WPtel: [phone] [facility] [place] Annual Well Visit 09/17/2017 Patient Education: Patient Medication Summary Completed 09/17/2017 Appointment: Belia Reid WPtel: [phone] [facility] US INJECTION 08/26/2017 Patient Education: Patient Medication Summary Completed 08/26/2017 Appointment: Belia Reid WPtel: [phone] [facility] US CANCELED 07/31/2017 Visit Diagnosis Plan: [...] ICD-10 : J20.9 07/19/2017 Appointment: Pattie Sotomayor [address] [place] [address] ACUTE ILLNESS 07/19/2017 Patient Education: Patient Medication Summary Completed 07/19/2017 Care Plan: MAMMOGRAM SCREENING LOINC : 2 6347-5 Pending 07/19/2017 Patient Education: Patient Medication Summary Completed 06/05/2017 Care Plan: LIPID PANEL LOINC : 25939-7 Pending 06/05/2017 Care Plan: A1C HPLC LOINC : 78046-4 Pending 06/05/2017 Visit Diagnosis Plan: Rash and [...] ICD-10 : R21 05/29/2017 Appointment: Pattie Sotomayor [address] [place] [address] FOLLOW UP 05/29/2017 Patient Education: Patient Medication Summary Completed 05/29/2017 Visit Diagnosis Plan: Tinea corporis Discussion: Diflu can and topical nystatin Follow Up: 2 weeks ICD-9 : 110.5 ICD-10 : B35.4 05/07/2017 Visit Diagnosis Plan: Diarrhea, unspecified Discussion : Diflucan Cholestyramine Recheck 2weeks ICD-9 : 787.91 ICD-10 : R19.7 05/07/2017 Appointment: Belia Reid WPtel: [address] [place] [address] FOLLOW UP 05/07/2017 Patient Education: Patient Medication Summary Completed 05/07/2017 Appointment: Belia Reid WPtel: [address] [place] [address] [place] RESCHEDULED 04/30/2017 Visit Diagnosis Plan: Chronic obstructiv e pulmonary disease with (acute) exacerbation Discussion: Finish prednisone Continue S VNS with albuterol ICD-9 : 491.21 ICD-10 : J44.1 03/18/2017 Visit Diagnosis Plan: Stridor Discussion: Increase Ati van 0.5mg po to TID routinely for next week then can go back to prn ICD-9 : 786.1 ICD-10 : R06.1 03/18/2017 Appointment: Belia Reid WPtel: [address] [place] [address] ER Follow UP 03/18/2017 Patient Education: Patient [...] E11.65 02/27/2017 Appointment: Belia Reid WPtel: [phone] [place] [address] FOLLOW UP 02/27/2017 Patient Education: Patient Medication [...] ICD-10 : E11.65 02/22/2017 Appointment: Pattie Sotomayor [address] [place] [address] ACUTE ILLNESS 02/22/2017 Patient Education: Patient Medication [...] J18.9 01/23/2017 Appointment: Belia Reid WPtel: [phone] [facility] ER Follow UP 01/23/2017 Patient Education: Patient Medication Summary Completed 01/23/2017 Appointment: Pattie Sotomayor 504 [facility] CANCELED 01/17/2017 Appointment: Pattie Sotomayor 504 [facility] Annual Well Visit 01/14/2017 Visit Diagnosis Plan: Type 2 diabetes mellitus with hy perglycemia Discussion: Check CMP, HbA1C Flu shot and Prevnar 13 given Follow Up: 3 months ICD-9 : 250.02 ICD-10 : E11.65 12/20/2016 Visit Diagnosis Plan: Localized edema Discussion: Low Na diet Compression socks/Elevate feet ICD-9 : 782.3 ICD-10 : R60.0 12/20/2016 Appointment: Belia Reidtel: [phone] [facility] FOLLOW UP 12/20/2016 Patient Education: Patient Medication Summary Completed 12/20/2016 Patient Education: Patient Medication Summary Completed 10/10/2016 Visit Plan: Xrays of cervical, thoracic and lumbar spine at ER[facility] for Mobic (stop NSAIDS except Tylenol) and Flexeril UA sent for C&S Using SVN Call in 2-3 days if pain not improved or any worsening 10/08/2016 Appointment: Celeste Ferreira WPtel: [phone] [facility]66[facility] ACUTE ILLNESS 10/08/2016 Patient Education: Patient Medication [...] ICD-10 : E11.65 09/19/2016 Appointment: Belia Reidl: [address] [place], [place] [address] 09/18 confirmed`sl FOLLOW UP 09/19/2016 Patient Education: [...] : R10.84 08/20/2016 Appointment: Belia Reid WPtel: [address] [place] [address] 08/16 confirmed~sl FOLLOW UP 08/20/2016 Patient Education: [...] : J44.9 06/19/2016 Appointment: Belia Reid WPtel: [address] [place] [address] 06/18 confirmed ~ Hospital Follow Up 06/19/2016 [...] : Z87.440 06/04/2016 Appointment: Belia Reid WPtel: [address] [place], [place] [phone] 06/01 confirmed~ FOLLOW UP 06/04/2016 Patient Education: [...] : R06.1 05/02/2016 Appointment: Belia Reid WPtel: [address] [place] [address] 05/01 confirmed ~ Hospital Follow Up 05/02/2016 [...] : N39.0 04/03/2016 Appointment: Belia Reid WPtel: [address] [place] [phone] 04/02 confirmed~ Hospital Follow Up 04/03/2016 Patient Education: Patient Medication Summary Completed 04/03/2016 Visit Plan: Lungs are clear Her symptoms and exam are all upper airway restriction/constriction Can try supportive care Rx as above Follow up PRN 02/29/2016 Appointment: Lidia Hwang [address] [place], [place] [address] ACUTE ILLNESS 02/29/2016 Patient Education: Patient Medication Summary Completed 02/29/2016 Visit Plan: Toradol/Phenergan today for Migraine Change to Clindamycin to cover lactobacillus for UTI Cover with flagyl due to hx of C. Diff 02/02/2016 Appointment: Belia Reid WPtel: [address] [place], [place] [phone] 01/31 confirmed`sl ACUTE ILLNESS 02/02/2016 Patient Education: Patient Medication Summary Completed 02/02/2016 Visit Plan: Increase neurontin to 300mg q AM and 600mg q PM Discussed neurology re-evaluation Flu shot given Need to check on Pneumonia shot Rx written out for albuterol 01/05/2016 Appointment: Belia Reid WPtel: [address] [place] [address] 01/03 confirmed ~sl Annual Well Visit 01/05/2016 Patient Education: Patient Medication Summary Completed 01/05/2016 Visit Plan: Cipro Culture urine hydrate Flexeril refilled Alternate heat and ice for back Increase gabapentin to 300mg po BID Notify if worsens 12/05/2015 Appointment: Belia Reid WPtel: [address] [place] [phone] 11/30 confirmed~sl ACUTE ILLNESS 12/05/2015 Patient Education: Patient Medication Summary Completed 12/05/2015 Patient Education: Patient Medication Summary Completed 10/27/2015 Care Plan: [place] : [address]-3 Pending 10/27/2015 Care Plan: A1C HPLC LOINC : 83559-5 Pending 10/27/2015 Visit Plan: Lungs are CTA today and is f eeling improved overall Finish meds as ordered Continue inhalers and neb treatments Discussed migraine treatment options She does not feel she needs anything additional added today Refill of Januvia sent since no samples are available today 10/26/2015 Appointment: Lidia Hwang [address] [place], [place] [address] Hospital Follow Up 10/26/2015 Appointment: Lidia Hwang [address] [place], [place] [address] [place] CANCELED 10/26/2015 Patient Education: Patient Medication Summary Completed 10/26/2015 Patient Education: Natalia Shin 18+ - KENNETH - No CA [place] Completed 10/26/2015 Visit Plan: Office dip still abnormal Cu lture pending Switch to cipro - stop macrobid Push fluids - avoid caffeine Will call with culture results when available Follow up if worsening 10/05/2015 Appointment: Lidia Hwang [address] [facility] ER Follow UP 10/05/2015 Patient Education: Patient Medication Summary Completed 10/05/2015 Visit Plan: Proceed with PT for document ation of ROM and strength of all extremities Proceed with Power Mobility Device Trial of neurontin 300mg q HS--lyrica helped but patient unable to afford Recheck 1month 09/15/2015 Appointment: Belia Reid WPtel: [address] [place], [place] [phone] 09/13 confirmed~sl SPECIAL 09/15/2015 Patient Education: Patient Medication Summary Completed 09/15/2015 Visit Plan: Fille out Loan Discharge Pap erwork for total and permanent disability 08/25/2015 Patient Education: Patient Medication Summary Completed 08/25/2015 Visit Plan: Discussed with Dr Anushka Haywood at CT of head Will get last date of carotid doppler from her fixed capital clerk and update if needed 08/24/2015 Appointment: Lidia Hwang [address] [place], [place] [phone] 08/22 confirmed~sl ACUTE ILLNESS 08/24/2015 Patient Education: Patient Medication Summary Completed 08/24/2015 Patient Education: Patient Medication Summary Completed 08/24/2015 Care Plan: US EXAM OF HEAD AND NECK carotid Ultrasound LOIN C : 21967-8 Pending 08/24/2015 Visit Plan: Long discussion about diet A ccuchecks daily Check HbA1C, CMP Change requip to mirapex 07/05/2015 Appointment: Belia Reid WPtel: [facility] [place][note 2]5 [facility] 07/03 confirmed ~sl FOLLOW UP 07/05/2015 Patient Education: Patient Medication Summary Completed 07/05/2015 Visit Plan: Add Breo ellipta 100 1 p BID Continue SVNs with duoneb QID 06/06/2015 Appointment: Belia Reid WPtel: [address] [place] [phone] Patient is calling for a ride, then [...] not improving 05/23/2015 Appointment: Huong Osborne WPtel: [address] [place], [place] [phone] ACUTE ILLNESS 05/23/2015 Appointment: Lidia Hwang [address] [place], [place] [phone] ER Follow UP 05/23/2015 Patient Education: Patient Medication Summary Completed 05/23/2015 Visit Plan: Check pancreatic enzymes and US of pancreas as patient can't understand why she has diabetes since has no family history Discussed weight, diet, exercise all play an important role in diabetes and are risk factors as well Continue Januvia and accuchecks daily 05/05/2015 Appointment: Belia Reid WPtel: [address] [place], [place] [phone] FOLLOW UP 05/05/2015 Patient Education: Patient Medication Summary Completed 05/05/2015 Care Plan: US EXAM ABDOM COMPLETE LOINC : 57256-7 Ordered 05/05/2015 Visit Plan: Start Januvia 100mg daily [place] with diflucan and culture urine Accuchecks daily alternating times Recheck 6weeks 03/30/2015 Appointment: Belia Reid WPtel: [address] [place] [phone] 03/29 confirmed~lb FOLLOW UP 03/30/2015 Patient Education: Patient Medication Summary Completed 03/30/2015 Appointment: Belia Reid WPtel: [address] [place] [address] 03/01 needs reschedule due to payment and insurance ~sl FOLLOW UP 03/02/2015 Visit Plan: Patient was just in ER last night so has not filled scripts yet Start Carafate and Flagyl and Cipro Add Hyophen 1 po BID Recheck 1mo 02/03/2015 Appointment: Belia Reid WPtel: [address] [place] [address] 02/02lm ~sl...02/03/15 appt confirmed cn ACUTE I LLNESS 02/03/2015 Patient Education: Patient Medication Summary Completed 02/03/2015 Visit Plan: Warm soaks to vaginal area K elex and Diflucan and observe Zofran to use prn 12/29/2014 Appointment: Belia Reid WPtel: [address] [place], [place] [address] 12/28 Confirmed ~sl ACUTE ILLNESS 12/29/2014 Patient Education: Patient Medication Summary Completed 12/29/2014 Appointment: Huong Osborne WPtel: [address] [place] [address] FOLLOW UP 09/24/2014 Appointment: Belia Reid WPtel: [address] [place], [place] [phone] 09/15 confirmed -mf FOLLOW UP 09/16/2014 Visit Plan: Increase requip to 2mg po BI D Increase lyrica to 225mg total a day by adding an extra 75mg in AM Recheck in 2weeks Continue to patch left eye while sleeping 09/02/2014 Appointment: Belia Reid WPtel: [address] [place], [place] [phone] [place] 09/01 appt confirmed cn Hospital Follow Up 09/02 Patient Education: Patient Medication Summary Completed 09/02/2014 Visit Plan: To [facility] for observat ion to R/O CVA 08/25/2014 Appointment: Huong Osborne WPtel: [address] [place], [place] [phone] ACUTE ILLNESS 08/25/2014 Patient Education: Patient Medication Summary Completed 08/25/2014 Referral: Aaron Jonas WPtel: [facility] [place] [id number] [facility], [address] [place] In [place] location Initiated 04/26/2014 Referral: Brian Srinivasan [facility]Ptel[id number] Ref[facility] Initiated 04/20/2014 Appointment: Belia Reid WPtel: [address] [place], [place] [phone] ER Follow UP 04/01/2014 Patient Education: Patient Medication Summary Completed 04/01/2014 Care Plan: MYELOGRAPHY NECK SPINE LOINC : 33170-2 Ordered 04/01/2014 Visit Plan: Continue Symbicort 160 at 2p BID Continue SVNs with duoneb at least QID Finish Levaquin Recheck 1mo on lyrica 03/16/2014 Appointment: Belia Reid WPtel: [address] [place], [place] [phone] 03/15 voicemail FOLLOW UP 03/16/2014 Patient Education: Patient Medication Summary Completed 03/16/2014 Visit Plan: Restart SVNs with duoneb QID Repeat prednisone Levaquin Continue symbicort Keep lyrica at same dose Recheck 1week 03/09/2014 Appointment: Belia Reid WPtel: [address] [place], [place] [phone] FOLLOW UP 03/09/2014 Patient Education: Patient Medication Summary Completed 03/09/2014 Appointment: Belia Reid WPtel: [address] [place] [phone] 03/03 showed up 15 minutes late for appt -- put her on Huong's side for 10:45am FORGIVEN PER DR FOLLOW UP 03/03/2014 Appointment: Huong Osborne WPtel: [address] [place], [place] [phone] FOLLOW UP 03/03/2014 Patient Education: Patient Medication Summary Completed 03/03/2014 Appointment: Huong Osborne WPtel: [address] [place], [place] [phone] ER Follow UP 03/01/2014 Patient Education: Patient Medication Summary Completed 03/01/2014 Visit Plan: Add carafate for this next m onth Increase lyrica to 150mg q HS 02/09/2014 Appointment: Belia Reid WPtel: [address] [place] [phone] [place] [address] Follow Up 02/09/2014 Patient Education: Patient Medication Summary Completed 02/09/2014 Visit Plan: Increase omeprazole back to 40mg po BID Use requip in AM and add lyrica 75mg q HS Recheck 1mo 12/23/2013 Appointment: Belia Reid WPtel: [address] [place], [place] [address] FOLLOW UP 12/23/2013 Patient Education: Patient Medication Summary Completed 12/23/2013 Patient Education: Patient Medication Summary Completed 12/04/2013 Appointment: Belia Reid WPtel: [address] [place], [place] [phone] [facility] 10/30/2013 Patient Education: Patient Medication Summary Completed 10/30/2013 Appointment: Belia Reid WPtel: [address] [place] [phone] [place] [address] 10/21/2013 Patient Education: Patient Medication Summary Completed 10/21/2013 Visit Plan: Cryotherapy as above TAC and hydroxyzine to use prn to itching spots and itching SKs Add Advair HFA 115/21 1 p BID 10/05/2013 Appointment: Belia Reid WPtel: [address] [place] [phone] 10/01 pt called and confirmed ACUTE ILLNESS Patient Education: Patient Medication Summary Completed 10/05/2013 Appointment: Bleia Reid WPtel: [address] [place] [phone] [place] will pay copay and part of past balance FOLLOW U P 08/04/2013 Patient Education: Patient Medication Summary Completed 08/04/2013 Appointment: Belia Reid WPtel: [address] [place], [place] [phone] [place] INJECTION 07/13/2013 Patient Education: Patient Medication Summary Completed 07/13/2013 Appointment: Huong Osborne WPtel: [address] [place], [place] [phone] [place] ACUTE ILLNESS 07/03/2013 Patient Education: Patient Medication Summary Completed 07/03/2013 Visit Plan: Cipro and culture urine 05/27/2013 Appointment: Huong Osborne WPtel: [address] [place], [place] [address] 05/26 confirmed appt and notified that balance and cops y is due at appt time FOLLOW UP 05/27/2013 Patient Education: Patient Medication Summary Completed 05/27/2013 Appointment: Belia Reid WPtel: [address] [place], [place] [id number] [place] UA 05/25/2013 Patient Education: Patient Medication Summary Completed 05/25/2013 Appointment: Belia Reid WPtel: [address] [place], [place] [address] [place] INJECTION 05/04/2013 Patient Education: Patient Medication Summary Completed 05/04/2013 Appointment: Belia Reid WPtel: [address] [place], [place] [phone] [place] INJECTION 04/17/2013 Patient Education: Patient Medication Summary Completed 04/17/2013 Appointment: Belia Reid WPtel: [address] [place] [phone] [place] INJECTION 04/15/2013 Appointment: Belia Reid WPtel: [address] [place], [place] [phone] 04/02 FOLLOW UP 04/06/2013 Patient Education: Patient Medication Summary Completed 04/06/2013 Visit Plan: Obtain lab results including UA from [facility] 11/10/2012 Appointment: Belia Reid WPtel: [address] [place] [address] ER Follow UP 11/10/2012 Patient Education: Patient Medication Summary Completed 11/10/2012 Appointment: Belia Reid WPtel: [address] [place] [address] 10/30/12 patient canceled appt due to fin ances. Offered to work something out, patient declined-LB FOLLOW UP 11/05/2012 Visit Plan: Continue Bystolic at current dose Pt has fwup with Neurology on September 16 09/02/2012 Appointment: Belia Reid WPtel: [address] [place] [address] FOLLOW UP 09/02/2012 Patient Education: Patient Medication Summary Completed 09/02/2012 Visit Plan: Continue bystolic at 5mg chris ly Sees Neurology tomorrow Use oxygen at bedtime 08/04/2012 Appointment: Belia Reid WPtel: [address] [place] [address] FOLLOW UP 08/04/2012 Patient Education: Patient Medication Summary Completed 08/04/2012 Appointment: Belia Reid WPtel: [address] [place] [address] has Hospital fwup for 07/21/12. merged appointments FOLLOW UP 07/24/2012 Visit Plan: Start Bystolic 5mg daily for tachycardia Fwup with neurology for further workup Overnight O2 sat 07/21/2012 Appointment: Belia Reid WPtel: [address] [place] [phone] Hospital Follow Up 07/21/2012 Patient Education: Patient Medication Summary Completed 07/21/2012 Visit Plan: SVN with Albuterol QID Add A velox 400mg daily Notify if worsens or persists 07/02/2012 Appointment: Belia Reidtel: [address] [place], [place] [phone] ACUTE ILLNESS 07/02/2012 Patient Education: Patient Medication Summary Completed 07/02/2012 Appointment: Belia Reid WPtel: [address] [place], [place] [phone] INJECTION 06/25/2012 Patient Education: Patient Medication Summary Completed 06/25/2012 Appointment: Belia Reid WPtel: [address] [place], [place] [phone] FOLLOW UP 06/24/2012 Patient Education: Patient Medication Summary Completed 06/24/2012 Appointment: Belia Reid WPtel: [address] [place], [place] [phone] 05/19 left [facility] FOLLOW UP 05/20/2012 Patient Education: Patient Medication Summary Completed 05/20/2012 Visit Plan: DC Neurontin--discussed that this may be causing some of symptoms Also discussed that stress is likely contributing factor Discussed that may be going through withdrawal from stopping pain meds cold turkey--pt states stopped meds 2wks ago do to not helping Increase Buspar to 10mg po TID 05/08/2012 Appointment: Belia Reid WPtel: [address] [place], [place] [phone] ACUTE ILLNESS 05/08/2012 Patient Education: Patient Medication Summary Completed 05/08/2012 Visit Plan: Continue current meds Contin ue lower dose on pain meds and Diazepam Still waiting on paperwork for botox for Migraines Will restart Neurontin at 600mg po q HS Pt going to stop Depakote due to can't afford 04/22/2012 Appointment: Bel[facility]el[phone] [facility]21 Hospital Follow Up 04/22/2012 Patient Education: Patient Medication Summary Completed 04/22/2012 Visit Plan: Injection to shoulder as abo ve Continue current meds Has appointment with neurology on HAs in 02/13/2012 Appointment: Belia Reid WPtel: [address] [place], [place] [phone] Pt does not have $10 copay at [facility] t time - will bring it in next week. Kianna iqbal'ed this. - [place] FOLLOW UP 02/13/2012 Patient Education: Patient Medication Summary Completed 02/13/2012 Visit Plan: Proceed with headache specia list Change nexium to Protonix Phenergan to use prn Sumatriptan to use prn Pt still on Inderal 01/28/2012 Appointment: Belia Reid WPtel: [address] [place], [place] [phone] ER Follow UP 01/28/2012 Patient Education: Patient [...] for sleep 12/26/2011 Appointment: Belia Reid WPtel: [address] [place], [place] [phone] 12/24- appt. confirmed FOLLOW UP 2 Patient Education: Patient Medication Summary Completed 12/26/2011 Appointment: Belia Reid WPtel: [address] [place], [place] [phone] [place] FOLLOW UP 11/14/2011 Patient Education: Patient Medication Summary Completed 11/14/2011 Appointment: Belia Reid WPtel: [facility]– [place][note 2][address] [place], [place] [phone] FOLLOW UP 09/12/2011 Patient Education: Patient Medication Summary Completed 09/12/2011 Visit Plan: Supportive care Decrease Liseth catalino to 50mg q HS Decrease AM dose of Valium to 5mg q HS Use Endocet sparingly 08/15/2011 Appointment: Belia Reid WPtel: [address] [place], [place] [phone] ER Follow UP 08/15/2011 Patient Education: Patient Medication Summary Completed 08/15/2011 Appointment: Belia Reid WPtel: [address] [place], [place] [phone] [place] Spoke directly to patient yesterday and confirmed the appoin tment. ACUTE ILLNESS 08/09/2011 Patient Education: Patient Medication Summary Completed 08/09/2011 Appointment: Belia Reid WPtel: [address] [place], [place] [phone] Hospital Follow Up 07/03/2011 Patient Education: Patient Medication Summary Completed 07/03/2011 Appointment: Belia Reid WPtel: [address] [place], [place] [phone] FOLLOW UP 06/04/2011 Patient Education: Patient Medication Summary Completed 06/04/2011 Visit Plan: Pt. wants "allergy shot" but in fact wants steroid shot. Will take a break from "generic Zyrtec they are getting from [facility]" and try Singulair for 2 weeks. 05/03/2011 Appointment: Iraida Jones WPtel: [address] [place], [place] [phone] ACUTE ILLNESS 05/03/2011 Patient Education: Patient Medication Summary Completed 05/03/2011 Visit Plan: Neurontin 400mg q HS for 1we ek then 800mg q HS Decrease requip to 1mg q HS for 2wks then stop Fwup 2mos 04/05/2011 Appointment: Belia Reid WPtel: [address] [place] [phone] FOLLOW UP 04/05/2011 Patient Education: Patient Medication Summary Completed 04/05/2011 Visit Plan: Trial of neurontin in 2wks C rahul current meds for stomach Pt has procedure with Dr. Ortiz next week for stone removal 03/08/2011 Appointment: Belia Reid WPtel: [address] [place], [place] [phone] Hospital Follow Up 03/08/2011 Patient Education: Patient Medication Summary Completed 03/08/2011 Appointment: Belia Reid WPtel: [address] [place], [place] [phone] FOLLOW UP 02/19/2011 Visit Plan: reports increased [...] with Flagyl 01/24/2011 Appointment: Iraida Jones WPtel: [address] [place] [address] ACUTE ILLNESS 01/24/2011 Patient Education: Patient Medication Summary Completed 01/24/2011 Appointment: Belia Reid WPtel: [address] [place], [place] [phone] FOLLOW UP 01/02/2011 Patient Education: Patient Medication Summary Completed 01/02/2011 Appointment: Belia Reid WPtel: [address] [place] [phone] FOLLOW UP 12/12/2010 Appointment: Belia Reid WPtel: [address] [place], [place] [phone] ACUTE ILLNESS 12/07/2010 Patient Education: Patient Medication Summary Completed 12/07/2010 Visit Plan: Increase Buspar to 10mg po B ID 11/16/2010 Appointment: Belia Reid WPtel: [address] [place], [place] [phone] FOLLOW UP 11/16/2010 Patient Education: Patient Medication Summary Completed 11/16/2010 Appointment: Iraida Jones WPtel: [address] [place], [place] [phone] ER Follow UP 11/02/2010 Patient Education: Patient Medication Summary Completed 11/02/2010 Visit Plan: Depo-Medrol/Kenalog given fo r allergies Add BuSpar for anxiety Oxycodone one p.o. q.i.d. for number 120 refilled 10/18/2010 Appointment: Belia Reid WPtel: [address] [place] [address] FOLLOW UP 10/18/2010 Patient Education: Patient Medication Summary Completed 10/18/2010 Visit Plan: Continue current meds Discus sed epidurals for back vs PT--will proceed with epidurals to thoracolumbar region to see if helps with pain 09/19/2010 Appointment: Belia Reid WPtel: [address] [place], [place] [phone] FOLLOW UP 09/19/2010 Patient Education: Patient Medication Summary Completed 09/19/2010 Visit Plan: DC MS contin Check CT scan t horacic spine Fwup pending above results 09/06/2010 Appointment: Belia Reid WPtel: [address] [place], [place] [phone] FOLLOW UP 09/06/2010 Patient Education: Patient Medication Summary Completed 09/06/2010 Visit Plan: Continue current meds Restar t MS contin 15mg po BID and use oxycodone prn Use daily senokot-s 2 po BID 08/10/2010 Appointment: Belia Reid WPtel: [address] [place] [phone] [place] FOLLOW UP 08/10/2010 Patient Education: Patient Medication Summary Completed 08/10/2010 Visit Plan: Depomedrol/Kenalog given Pt sees ENT later this month Cont current meds Mammo scheduled 05/11/2010 Appointment: Belia Reid WPtel: [address] [place], [place] [phone] FOLLOW UP 05/11/2010 Patient Education: Patient Medication Summary Completed 05/11/2010 Appointment: Belia Reid WPtel: [address] [place], [place] [phone] [place] [address] 05/04/2010 Patient Education: Patient Medication Summary Completed 05/04/2010 Visit Plan: Pt sent to lab for UA 04/28/2010 Appointment: Belia Reid WPtel: [address] [place] [address] 04/28/2010 Patient Education: Patient Medication Summary Completed 04/28/2010 Visit Plan: Check CT angiogram of chest Restart Advair Use proair prn Cont current meds Fwup with Card as schedulec 04/06/2010 Appointment: Belia Reid WPtel: [address] [place] [address] Follow Up 04/06/2010 Patient Education: Patient Medication Summary Completed 04/06/2010 Visit Plan: Paperwork filled out for pow erchair Depomedrol/kenalog given Pt sees ENT in 2wks to assess nasal obstruction problems 02/09/2010 Appointment: Belia Reid WPtel: [address] [place] [address] ESTABLISHED PATIENT 02/09/2010 Patient Education: Patient Medication Summary Completed 02/09/2010 Visit Plan: Change Elavil to Trazadone 1 50mg q HS Diflucan and nystatin for tinea cruris 01/05/2010 Appointment: Belia Reid WPtel: [address] [place] [address] FOLLOW UP 01/05/2010 Patient Education: Patient Medication Summary Completed 01/05/2010 Appointment: Belia Reid WPtel: [address] [place] [address] FOLLOW UP 12/07/2009 Patient Education: Patient Medication Summary Completed 12/07/2009 Appointment: Belia Reid WPtel: [address] [place] [address] FOLLOW UP 11/22/2009 Visit Plan: Cont current meds and await MRI results from Dr. Meadows's office and his final recommendations Will need to follow-up at later date on deviated septum 11/08/2009 Appointment: Belia Reid WPtel: [address] [place] [address] FOLLOW UP 11/08/2009 Patient Education: Patient Medication Summary Completed 11/08/2009 Visit Plan: Cont PT/OT See Neurosurgery Cont Tortoise shell brace 10/24/2009 Appointment: Belia Reid WPtel: [address] [place] [address] FOLLOW UP 10/24/2009 Patient Education: Patient Medication Summary Completed 10/24/2009 Appointment: Belia Reid WPtel: [address] [place] [address] Hospital Follow Up 10/17/2009 Appointment: Belia Reid WPtel: [address] [place] [address] ACUTE ILLNESS 07/25/2009 Patient Education: Patient Medication Summary Completed 07/25/2009 Appointment: Belia Reid WPtel: [address] [place] [address] FOLLOW UP 05/26/2009 Patient Education: Patient Medication Summary Completed 05/26/2009 Referral: Chino Balderas WPtel: [facility] [address] Referral Initiated Referral: Merry Vale WPtel: [facility] [id number] Vale will review referral and book appointment Completed Referral: Francisco Javier Yoder WPtel: [phone] [id number] Patient needs EGD insurance will not inc rease a medication unless this procedure results show a need Completed Referral: Francisco Javier Yoder WPtel: [phone] [id number] [place] Referral Historical Reference Referral: Francisco Javier Yoder WPtel: [phone] [id number] [place] Referral Initiated Instructions Comment . 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 Long discussion [...] from "generic Zyrtec they are getting from [facility]" and try Singulair for 2 weeks. . [...]
--- OUTSIDE RECORDS SUMMARY | 2019-06-23 17:49 | XMS REPORT | CCD ---
Author Author Diana Reid D.O. Organization [facility] Address [address] [place] [address] Phone Care Team Providers Care Academic Adviser Name Role Phone [facility] D.O., PP Unavailable CCM Unavailable Summary Purpose Interface Exchange Insurance Providers Payer name Policy type / Coverage type Covered alliance party ID Effective Begin Date Effective End Date [employer] MEDICARE Medicare Part B [id number] 2019 Unknown Family History Family History data not found Social History Social History Element Codes Description Effective Dates Tobacco history SNOMED CT: 278984835 Nonsmoker 09/13/2010 Allergies, Adverse Reactions, Alerts Substance Reaction Codes Entered Date Inactivated Date Status Eggs reaction [id number] 09/15/2015 No Inactive Date Active _ Unknown [...] Fill Instructions Vancocin 125 mg capsule RxNorm: 378443 1 Capsule(s) Oral four t imes a day 06/08/2019 06/18/2019 Active diltiazem CD 240 mg capsule,extended release 24 hr RxNorm: 8 14191 1 Capsule(s) Oral QD 05/26/2019 11/21/2019 Active omeprazole 40 mg capsule,delayed release RxNorm: 849527 1 Capsule(s) Oral two times a day 05/26/2019 11/21/2019 Active Flagyl 500 mg tablet RxNorm: 355003 1 Tablet(s) Oral three time s a day 05/26/2019 06/05/2019 Inactive Cipro 250 mg tablet RxNorm: 559874 1 Tablet(s) Oral two times a day 05/26/2019 06/02/2019 Inactive hydroxyzine HCl 25 mg tablet RxNorm: 327469 1 Tablet(s) Oral QPM for itching/aniety 05/21/2019 06/27/2019 Active metoprolol tartrate 25 mg tablet RxNorm: 485666 1 Table t(s) Oral two times a day 05/21/2019 08/19/2019 Active hydroxyzine HCl 25 mg tablet RxNorm: 838194 1 Tablet(s) Oral QPM for itching/aniety 05/13/2019 05/20/2019 Inactive Singulair 10 mg tablet RxNorm: 439692 1 Tablet(s) Oral QPM 05/06/19 20 05/12/2019 Inactive gabapentin 600 mg tablet RxNorm: 516563 1 Tablet(s) Oral QD 020 06/05/2019 Inactive Valium 5 mg tablet RxNorm: 526990 1 Tablet(s) Oral QPM for stri joao/muscle spasm 04/29/2019 05/29/2019 Inactive baclofen 10 mg tablet RxNorm: 493657 1 Tablet(s) Oral QPM for s pasm/neck pain 04/24/2019 05/23/2019 Inactive baclofen 10 mg tablet RxNorm: 399034 1 Tablet(s) Oral QPM for s pasm/neck pain 04/24/2019 04/23/2019 Inactive Novolin N NPH U-100 Insulin isophane 100 unit/mL subcu taneous susp RxNorm: 300869 23 Unit(s) Subcutaneous two times a day 04/20/2019 No Stop Date A ctive cyclobenzaprine 5 mg tablet RxNorm: 788125 1 Tablet(s) Oral three times a day as needed 04/16/2019 04/23/2019 Inactive hydroxyzine HCl 25 mg tablet RxNorm: 186607 1 Tablet(s) Oral three times a day for itching/aniety 04/08/2019 05/12/2019 Inactive gabapentin 600 mg tablet RxNorm: 239983 1 Tablet(s) Oral two ti mes a day 04/08/2019 05/05/2019 Inactive gabapentin 600 mg tablet RxNorm: 228682 1 Tablet(s) Oral two ti mes a day 04/08/2019 04/07/2019 Inactive Novolin N NPH U-100 Insulin isophane 100 unit/mL subcu taneous susp RxNorm: 598292 10 Unit(s) Subcutaneous two times a day 03/03/2019 04/19/2019 I nactive gabapentin 300 mg capsule RxNorm: 013794 1 Capsule(s) O ral every night at bedtime for neuropathy 02/26/2019 04/07/2019 Inactive gabapentin 300 mg capsule RxNorm: 932705 1 Capsule(s) O ral every night at bedtime for neuropathy 02/20/2019 02/25/2019 Inactive pramipexole 1 mg tablet RxNorm: 805662 1 Tablet(s) Oral QPM FOR RESTLESS LEGS (REPLACES REQUIP) 02/12/2019 02/07/2020 Active buspirone 5 mg tablet RxNorm: 179861 TAKE 1 TABLET THREE TIMES MILDRED Y 02/12/2019 05/12/2019 Inactive Lexapro 10 mg tablet RxNorm: 122058 TAKE 1 TABLET EVERY DAY FOR MOO D 01/31/2019 No Stop Date Active Ativan 0.5 mg tablet RxNorm: 464758 TAKE 1 TABLET BY MO UTH THREE TIMES DAILY NEEDED FOR ANXIETY 01/26/2019 04/28/2019 Inactive Ativan 0.5 mg tablet RxNorm: 603248 TAKE 1 TABLET BY MO UTH THREE TIMES DAILY NEEDED FOR ANXIETY 01/05/2019 01/05/2019 Inactive Levaquin 500 mg tablet RxNorm: 837613 1 Tablet(s) Oral QD 12/25/2018 12/24/2018 Inactive Levaquin 500 mg tablet RxNorm: 774008 1 Tablet(s) Oral QD 12/25/2018 01/04/2019 Inactive baclofen 10 mg tablet RxNorm: 416088 1 Tablet(s) Oral three maico es a day 11/20/2018 01/19/2019 Inactive Ativan 0.5 mg tablet RxNorm: 953217 TAKE 1 TABLET BY MO UTH THREE TIMES DAILY NEEDED FOR ANXIETY 11/20/2018 01/04/2019 Inactive gabapentin 300 mg capsule RxNorm: 396406 1 Capsule(s) O ral every night at bedtime for neuropathy 11/20/2018 12/20/2018 Inactive Lexapro 10 mg tablet RxNorm: 524772 1 Tablet(s) PO QD for mood 07/201801/30/2019 Inactive Zithromax Z-Lj 250 mg tablet RxNorm: 844236 Tablet(s) PO take as directed 11/04/2018 11/19/2018 Inactive Insulin Syringe 1 mL 29 gauge x 1/2" RxNorm: 2 s yringes daily with insulin Dx: E11.65 10/08/2018 No Stop Date Active gabapentin 300 mg capsule RxNorm: 208874 1 Capsule(s) PO QHS fo r neuropathy 09/18/2018 10/17/2018 Inactive cyclobenzaprine 5 mg tablet RxNorm: 285176 1 Tablet(s) PO TID a s needed 09/09/2018 09/08/2018 Inactive cyclobenzaprine 5 mg tablet RxNorm: 578084 1 Tablet(s) PO TID a s needed 09/09/2018 10/08/2018 Inactive prednisone 20 mg tablet RxNorm: 204927 1 Tablet(s) PO QD 09/08/2018 0 09/12/2018 Inactive Lantus Solostar U-100 Insulin 100 unit/mL (3 mL) subcu taneous pen RxNorm: 931669 55 Unit(s) SQ QAM 08/28/2018 11/03/2018 Inactive hydroxyzine HCl 25 mg tablet RxNorm: 127903 1 Tablet(s) PO QHS for itching 08/20/2018 05/12/2019 Inactive Lexapro 10 mg tablet RxNorm: 627776 1 Tablet(s) PO QD for mood 08/0210/18/2018 Inactive sumatriptan 100 mg tablet RxNorm: 948418 1 Tablet(s) PO at headache onset. May repeat 1 in two hours if headache remains. Max of 2 per 24 hours 04/02/2018 05/20/2018 Inactive Diflucan 150 mg tablet RxNorm: 519582 1 Tablet(s) PO QD 03/18/2018 Inactive Diflucan 150 mg tablet RxNorm: 674723 1 Tablet(s) PO QD 03/18/2018 Inactive Flagyl 500 mg tablet RxNorm: 913158 1 Tablet(s) PO TID 03/17/2018 Inactive Levaquin 500 mg tablet RxNorm: 117804 1 Tablet(s) PO QD 03/17/2018 Inactive Levaquin 500 mg tablet RxNorm: 863770 1 Tablet(s) PO QD 03/17/2018 Inactive Flagyl 500 mg tablet RxNorm: 316456 1 Tablet(s) PO TID 03/17/2018 Inactive ketoconazole 200 mg tablet RxNorm: 753411 1 Tablet(s) PO QD 019 03/19/2018 Inactive Celebrex 200 mg capsule RxNorm: 871041 1 Capsule(s) PO BID 02/06/2005/20/2018 Inactive tramadol 50 mg tablet RxNorm: 757088 1 Tablet(s) PO TID as needed 1 04/08/2017 05/20/2018 Inactive gabapentin 300 mg capsule RxNorm: 738918 1 Capsule(s) PO BID 201705/20/2018 Inactive Diflucan 150 mg tablet RxNorm: 247781 1 Tablet(s) PO QD 01/20/2018 Inactive pramipexole 1 mg tablet RxNorm: 219760 1 Tablet(s) PO Q PM FOR RESTLESS LEGS (REPLACES REQUIP) 01/08/2018 02/11/2019 Inactive cyclobenzaprine 10 mg tablet RxNorm: 921648 1 Tablet(s) PO TID as needed for muscle spasm 12/17/2017 05/20/2018 Inactive pramipexole 1 mg tablet RxNorm: 683913 TAKE 1 TABLET BY MOUTH ONCE DAILY IN THE EVENING FOR RESTLESS LEGS (REPLACES REQUIP) 12/04/2017 01/05/2018 Inac tive Amaryl 4 mg tablet RxNorm: 142700 1 Tablet(s) PO BID replaces 2mg 0 11/05/2017 12/16/2017 Inactive Singulair 10 mg tablet RxNorm: 993777 1 Tablet(s) PO QHS for al lergies/lungs 10/30/2017 12/16/2017 Inactive Diflucan 100 mg tablet RxNorm: 171598 1 Tablet(s) PO QD 10/23/2017 Inactive Ativan 0.5 mg tablet RxNorm: 613058 TAKE 1 TABLET BY MOUTH THRE E TIMES DAILY 08/30/2017 11/20/2018 Inactive buspirone 5 mg tablet RxNorm: 595187 1 Tablet(s) PO TID 07/11/2017 Inactive propranolol 60 mg tablet RxNorm: 832411 1 Tablet(s) PO BID repl aces 40mg dose 06/26/2017 12/16/2017 Inactive Amaryl 4 mg tablet RxNorm: 717595 1 Tablet(s) PO BID replaces 2mg 0 06/12/2017 11/05/2017 Inactive omeprazole 40 mg capsule,delayed release RxNorm: 944876 1 Capsule(s) PO BID TAKE ONE CAPSULE BY MOUTH TWICE DAILY 05/30/2017 11/25/2017 Inactive pramipexole 1 mg tablet RxNorm: 606536 1 Tablet(s) PO Q PM for restless legs--replaces requip 05/30/2017 11/25/2017 Inactive amitriptyline 50 mg tablet RxNorm: 640983 1 Tablet(s) PO QHS 201709/16/2017 Inactive Diflucan 100 mg tablet RxNorm: 815980 1 Tablet(s) PO BID 05/07/2017 0 05/20/2017 Inactive nystatin (bulk) 100 million unit powder RxNorm: Application TO P BID 05/07/2017 05/20/2018 Inactive cholestyramine (with sugar) 4 gram oral powder RxNorm: 618771 1 Unit Dose PO QD 05/07/2017 01/20/2018 Inactive Ativan 0.5 mg tablet RxNorm: 784756 TAKE ONE TABLET BY MOUTH TH REE TIMES DAILY 05/01/2017 09/02/2017 Inactive Trulicity 1.5 mg/0.5 mL subcutaneous pen injector RxNorm: 15 80849 1 Unit Dose SQ WEEKLY 02/22/2017 03/23/2017 Inactive doxycycline hyclate 100 mg capsule RxNorm: 8717225 1 Capsule(s) PO BID 01/23/2017 02/05/2017 Inactive Amaryl 4 mg tablet RxNorm: 301071 1 Tablet(s) PO BID replaces 2mg 1 03/25/2016 05/22/2017 Inactive magnesium oxide 400 mg capsule RxNorm: 427927 1 Capsule(s) PO QD 07/18/2017 Inactive Ativan 0.5 mg tablet RxNorm: 180547 TAKE ONE TABLET BY MOUTH TH REE TIMES DAILY 01/17/2017 05/01/2017 Inactive Amaryl 2 mg tablet RxNorm: 664926 1 Tablet(s) PO BID 12/27/201601/22 Inactive Amaryl 2 mg tablet RxNorm: 961018 1 Tablet(s) PO BID 12/26/201612/26 Inactive Ativan 0.5 mg tablet RxNorm: 732831 TAKE ONE TABLET BY MOUTH TH REE TIMES DAILY 12/05/2016 01/18/2017 Inactive pramipexole 1 mg tablet RxNorm: 661313 1 Tablet(s) PO Q PM for restless legs--replaces requip 11/26/2016 05/30/2017 Inactive Mobic 15 mg tablet RxNorm: 101193 1 Tablet(s) PO QD 10/08/20162016 Inactive cyclobenzaprine 5 mg tablet RxNorm: 141963 1/2- 1 Tablet(s) PO TID 10/08/2016 10/17/2016 Inactive Ativan 0.5 mg tablet RxNorm: 002105 1 Tablet(s) PO TID 09/20/201607/2016 Inactive amitriptyline 50 mg tablet RxNorm: 930149 1 Tablet(s) PO QHS 201605/30/2017 Inactive propranolol 60 mg tablet RxNorm: 125855 1 Tablet(s) PO BID repl aces 40mg dose 09/19/2016 06/26/2017 Inactive Ativan 0.5 mg tablet RxNorm: 574544 1 Tablet(s) PO TID 08/20/2016 Inactive omeprazole 40 mg capsule,delayed release RxNorm: 826152 1 Capsule(s) PO BID TAKE ONE CAPSULE BY MOUTH TWICE DAILY 08/20/2016 05/30/2017 Inactive amitriptyline 50 mg tablet RxNorm: 030905 1 Tablet(s) PO QHS 201609/18/2016 Inactive pramipexole 1 mg tablet RxNorm: 928256 1 Tablet(s) PO Q PM for restless legs--replaces requip 07/23/2016 11/25/2016 Inactive Amaryl 2 mg tablet RxNorm: 576630 1 Tablet(s) PO BID 07/23/201612/27 Inactive propranolol 40 mg tablet RxNorm: 646917 1 Tablet(s) PO BID 07/13/1909/18/2016 Inactive Ativan 0.5 mg tablet RxNorm: 751154 1 Tablet(s) PO QID 06/19/2016 Inactive Amaryl 2 mg tablet RxNorm: 829869 1 Tablet(s) PO BID 06/19/201607/22 Inactive Ativan 0.5 mg tablet RxNorm: 395943 1 Tablet(s) PO QID 06/19/2016 Inactive buspirone 5 mg tablet RxNorm: 165887 1 Tablet(s) PO TID 06/19/2016 Inactive Ativan 0.5 mg tablet RxNorm: 468288 1 Tablet(s) PO BID 05/24/2016 Inactive buspirone 5 mg tablet RxNorm: 952392 1 Tablet(s) PO TID 05/23/2016 Inactive Macrobid 100 mg capsule RxNorm: 956682 1 Capsule(s) PO QOD 05/03/1910/07/2016 Inactive pramipexole 1 mg tablet RxNorm: 644220 Tablet(s) 1 Tabl et(s) PO QPM for restless legs--replaces requip 04/26/2016 06/24/2016 Inactive propranolol 40 mg tablet RxNorm: 055754 TAKE ONE TABLET BY MOUT H TWICE DAILY 04/26/2016 06/24/2016 Inactive Detrol LA 4 mg capsule,extended release RxNorm: 725199 1 Capsul e(s) PO QHS 04/03/2016 05/02/2016 Inactive prednisone 20 mg tablet RxNorm: 918272 1 Tablet(s) PO QD 02/29/2016 0 03/04/2016 Inactive Actos 30 mg tablet RxNorm: 168972 TAKE ONE TABLET BY MOUTH ONCE DAILY 02/27/2016 12/19/2016 Inactive clindamycin 300 mg capsule RxNorm: 091205 1 Capsule(s) PO TID 02/0102/08/2016 Inactive Flagyl 500 mg tablet RxNorm: 606108 1 Tablet(s) PO BID 02/02/201609/2015 Inactive omeprazole 40 mg capsule,delayed release RxNorm: 278323 TAKE ONE CAPSULE BY MOUTH TWICE DAILY 01/15/2016 07/12/2016 Inactive gabapentin 300 mg capsule RxNorm: 989205 1 Capsule(s) PO QAM an d 2 po q HS 01/05/2016 06/18/2016 Inactive gabapentin 300 mg capsule RxNorm: 314841 1 Capsule(s) P O BID 1 Capsule(s) PO QHS 12/05/2015 01/04/2016 Inactive cyclobenzaprine 10 mg tablet RxNorm: 283787 1 Tablet(s) PO TID for spasm as needed for muscle spasm 12/05/2015 06/18/2016 Inactive ciprofloxacin 250 mg tablet RxNorm: 737060 1 Tablet(s) PO BID 12/0412/14/2015 Inactive pramipexole 1 mg tablet RxNorm: 370788 Tablet(s) 1 Tabl et(s) PO QPM for restless legs--replaces requip 11/07/2015 11/26/2016 Inactive Januvia 100 mg tablet RxNorm: 216876 1 Tablet(s) PO QD 10/26/201504/2015 Inactive propranolol 40 mg tablet RxNorm: 508648 TAKE ONE TABLET BY MOUT H TWICE DAILY 10/25/2015 04/21/2016 Inactive gabapentin 300 mg capsule RxNorm: 008587 1 Capsule(s) PO QHS 201512/04/2015 Inactive Cipro 500 mg tablet RxNorm: 082165 1 Tablet(s) PO BID 10/05/201511/2015 Inactive pramipexole 1 mg tablet RxNorm: 230665 Tablet(s) 1 Tabl et(s) PO QPM for restless legs--replaces requip 10/04/2015 11/02/2015 Inactive propranolol 40 mg tablet RxNorm: 895151 TAKE ONE TABLET BY MOUT H TWICE DAILY 09/26/2015 10/24/2015 Inactive Amaryl 2 mg tablet RxNorm: 906461 1 Tablet(s) PO QD 09/15/20152016 Inactive gabapentin 300 mg capsule RxNorm: 369778 1 Capsule(s) PO QHS 201510/14/2015 Inactive buspirone 5 mg tablet RxNorm: 947754 1 Tablet(s) PO TID 09/15/2015 Inactive pramipexole 1 mg tablet RxNorm: 335559 Tablet(s) 1 Tabl et(s) PO QPM for restless legs--replaces requip 09/08/2015 10/03/2015 Inactive pramipexole 1 mg tablet RxNorm: 967472 1 Tablet(s) PO Q PM for restless legs--replaces requip 08/08/2015 09/08/2015 Inactive Amaryl 2 mg tablet RxNorm: 858395 1 Tablet(s) PO QD 07/07/20152015 Inactive pramipexole 1 mg tablet RxNorm: 231823 1 Tablet(s) PO Q PM for restless legs--replaces requip 07/05/2015 08/03/2015 Inactive ropinirole 2 mg tablet RxNorm: 715689 TAKE ONE TABLET BY MOUTH TWICE DAILY 05/09/2015 09/14/2015 Inactive Diflucan 100 mg tablet RxNorm: 774908 1 Tablet(s) PO QD 03/30/2015 Inactive propranolol 40 mg tablet RxNorm: 490422 1 Tablet(s) PO BID 02/24/20 15 08/21/2015 Inactive [SAVINGS FOR UNINSURED PATIE NTS -- BIN:450813, PCN: ASPROD1, Group: AME08, ID# [id number], Process claim through [employer], for questions: . THIS IS NOT INSURANCE.] Flagyl 500 mg tablet RxNorm: 685783 1 Tablet(s) PO BID 02/03/201502/2015 Inactive Cipro 500 mg tablet RxNorm: 904972 1 Tablet(s) PO BID 02/03/201502/01 Inactive Carafate 1 gram tablet RxNorm: 455664 1 Tablet(s) PO QID make i nto slurry 02/03/2015 09/14/2015 Inactive ondansetron HCl 4 mg tablet RxNorm: 619563 1 Tablet(s) PO Q4H as needed for nausea 12/29/2014 01/04/2016 Inactive Diflucan 100 mg tablet RxNorm: 424848 1 Tablet(s) PO QD 12/29/2014 Inactive Keflex 500 mg capsule RxNorm: 428651 1 Capsule(s) PO TID 12/29/2014 1 03/09/2014 Inactive omeprazole 40 mg capsule,delayed release RxNorm: 505520 1 Capsu le(s) PO BID 12/27/2014 12/21/2015 Inactive [SAVINGS FOR UNINSUR ED PATIENTS -- BIN:972893, PCN: ASPROD1, Group: AME08, ID# [id number], Process claim through [employer], for questions: . THIS IS NOT INSURANCE.] ropinirole 2 mg tablet RxNorm: 147023 1 Tablet(s) PO BID 09/29/2014 0 03/27/2015 Inactive [SAVINGS FOR UNINSURED PATIENTS -- BIN:0 63914, PCN: ASPROD1, Group: AME08, ID# [id number], Process claim through [employer], for questions: . THIS IS NOT INSURANCE.] buspirone 5 mg tablet RxNorm: 502931 1 Tablet(s) PO TID 09/17/2014 Inactive ropinirole 2 mg tablet RxNorm: 621511 1 Tablet(s) PO BID 09/02/2014 0 09/28/2014 Inactive [SAVINGS FOR UNINSURED PATIENTS -- BIN:0 02422, PCN: ASPROD1, Group: AME08, ID# [id number], Process claim through [employer], for questions: . THIS IS NOT INSURANCE.] Zyrtec 10 mg tablet RxNorm: 6164519 1 Tablet(s) PO QD 09/02/201412/02 Inactive propranolol 40 mg tablet RxNorm: 942255 1 Tablet(s) PO BID 07/21/19 15 02/23/2015 Inactive [SAVINGS FOR UNINSURED PATIE NTS -- BIN:235430, PCN: ASPROD1, Group: AME08, ID# [id number], Process claim through [employer], for questions: . THIS IS NOT INSURANCE.] ropinirole 2 mg tablet RxNorm: 148255 1 Tablet(s) PO QHS 05/14/2014 0 09/01/2014 Inactive [SAVINGS FOR UNINSURED PATIENTS -- BIN:0 15950, PCN: ASPROD1, Group: AME08, ID# [id number], Process claim through [employer], for questions: . THIS IS NOT INSURANCE.] cyclobenzaprine 10 mg tablet RxNorm: 539741 1 Tablet(s) PO QHS for spasm 04/06/2014 09/01/2014 Inactive ipratropium-albuterol 0.5 mg-3 mg(2.5 mg base)/3 mL ne bulization soln RxNorm: 5720965 1 Unit Dose INH Q4H 03/16/2014 No Stop Date Active [SAVINGS FOR UNINSURED PATIENTS -- BIN:882539, PCN: ASPROD1, Group: AME08, ID# [id number], Process claim through [employer], for questions: . THIS IS NOT INSURANCE.] prednisone 20 mg tablet RxNorm: 116541 1 Tablet(s) PO BID 03/09/2014 03/15/2014 Inactive [SAVINGS FOR UNINSURED PATIENTS -- BIN:0 70315, PCN: ASPROD1, Group: AME08, ID# [id number], Process claim through [employer], for questions: . THIS IS NOT INSURANCE.] ipratropium-albuterol 0.5 mg-3 mg(2.5 mg base)/3 mL ne bulization soln RxNorm: 9867658 1 Unit Dose INH Q4H 03/09/2014 03/15/2014 Inactive [SAVINGS FOR UNINSURED PATIENTS -- BIN:096415, PCN: ASPROD1, Group: AME08, ID# [id number], Process claim through [employer], for questions: . THIS IS NOT INSURANCE.] Levaquin 500 mg tablet RxNorm: 993427 1 Tablet(s) PO QD 03/09/2014 Inactive [SAVINGS FOR UNINSURED PATIENTS -- BIN:0 07064, PCN: ASPROD1, Group: AME08, ID# [id number], Process claim through [employer], for questions: . THIS IS NOT INSURANCE.] Carafate 1 gram tablet RxNorm: 730048 1 Tablet(s) PO AC & HS ma ke into slurry 02/09/2014 09/01/2014 Inactive [SAVINGS FOR UNINSUR ED PATIENTS -- BIN:463445, PCN: ASPROD1, Group: AME08, ID# [id number], Process claim through [employer], for questions: . THIS IS NOT INSURANCE.] Fioricet 50 mg-300 mg-40 mg capsule RxNorm: 6175721 1-2 Capsule(s) PO Q4H as needed for headache --max of 6 a day 02/09/2014 09/01/2014 Inactive [SAVINGS FOR UNINSURED PATIENTS -- BIN:418742, PCN: ASPROD1, Group: AME08, ID# [id number], Process claim through [employer], for questions: . THIS IS NOT INSURANCE.] propranolol 40 mg tablet RxNorm: 833608 1 Tablet(s) PO BID 12/08/19 14 06/04/2014 Inactive [SAVINGS FOR UNINSURED PATIE NTS -- BIN:741117, PCN: ASPROD1, Group: AME08, ID# [id number], Process claim through [employer], for questions: . THIS IS NOT INSURANCE.] buspirone 5 mg tablet RxNorm: 696632 1 Tablet(s) PO TID 12/02/2013 Inactive omeprazole 40 mg capsule,delayed release RxNorm: 220895 1 Capsu le(s) PO BID 11/25/2013 11/19/2014 Inactive [SAVINGS FOR UNINSUR ED PATIENTS -- BIN:209984, PCN: ASPROD1, Group: AME08, ID# [id number], Process claim through [employer], for questions: . THIS IS NOT INSURANCE.] ropinirole 2 mg tablet RxNorm: 374791 1 Tablet(s) PO QHS 11/10/2013 0 05/08/2014 Inactive [SAVINGS FOR UNINSURED PATIENTS -- BIN:0 13941, PCN: ASPROD1, Group: AME08, ID# [id number], Process claim through [employer], for questions: . THIS IS NOT INSURANCE.] Cipro 500 mg tablet RxNorm: 756689 1 Tablet(s) PO BID 10/21/201312/03 Inactive [SAVINGS FOR UNINSURED PATIENTS -- BIN:0 15326, PCN: ASPROD1, Group: AME08, ID# [id number], Process claim through [employer], for questions: . THIS IS NOT INSURANCE.] hydroxyzine HCl 25 mg tablet RxNorm: 390598 1 Tablet(s) PO Q4-6 H as needed 10/05/2013 01/04/2016 Inactive [SAVINGS FOR UNINSUR ED PATIENTS -- BIN:953010, PCN: ASPROD1, Group: AME08, ID# [id number], Process claim through [employer], for questions: . THIS IS NOT INSURANCE.] triamcinolone acetonide 0.1 % topical cream RxNorm: 4541985 Appl ication TOP BID 10/05/2013 09/01/2014 Inactive [SAVINGS FOR UNINSUR ED PATIENTS -- BIN:348857, PCN: ASPROD1, Group: AME08, ID# [id number], Process claim through [employer], for questions: . THIS IS NOT INSURANCE.] albuterol sulfate HFA 90 mcg/actuation aerosol inhaler RxNor m: 0306145 2 Puff(s) INH Q4H as needed for cough 10/01/2013 12/22/2013 Inactive [MAKSIM INGS FOR UNINSURED PATIENTS -- BIN:718452, PCN: ASPROD1, Group: AME08, ID# [id number], Process claim through [employer], for questions: . THIS IS NOT INSURANCE.] propranolol 40 mg tablet RxNorm: 394962 1 Tablet(s) PO BID 09/02/19 14 11/29/2013 Inactive [SAVINGS FOR UNINSURED PATIE NTS -- BIN:588363, PCN: ASPROD1, Group: AME08, ID# [id number], Process claim through [employer], for questions: . THIS IS NOT INSURANCE.] propranolol 40 mg tablet RxNorm: 431791 1 Tablet(s) PO BID 08/05/19 14 08/31/2013 Inactive [SAVINGS FOR UNINSURED PATIE NTS -- BIN:602907, PCN: ASPROD1, Group: AME08, ID# [id number], Process claim through [employer], for questions: . THIS IS NOT INSURANCE.] Toprol XL 50 mg tablet,extended release RxNorm: 443650 1 Tablet (s) PO QHS 07/23/2013 08/03/2013 Inactive Macrobid 100 mg capsule RxNorm: 249856 1 Capsule(s) PO BID 07/04/19 14 07/09/2013 Inactive Toprol XL 50 mg tablet,extended release RxNorm: 981857 1 Tablet (s) PO QHS 05/28/2013 06/26/2013 Inactive ciprofloxacin 500 mg tablet RxNorm: 054371 1 Tablet(s) PO BID 05/2706/02/2013 Inactive Bystolic 5 mg tablet RxNorm: 634198 1 Tablet(s) PO QD 05/27/201305/03 Inactive ropinirole 2 mg tablet RxNorm: 942847 1 Tablet(s) PO QHS 04/22/2013 0 11/09/2013 Inactive Cipro 250 mg tablet RxNorm: 608034 1 Tablet(s) PO BID 04/06/201311/2013 Inactive ropinirole 2 mg tablet RxNorm: 201981 1 Tablet(s) PO QHS 02/17/2013 0 04/21/2013 Inactive Amaryl 2 mg tablet RxNorm: 629927 1 Tablet(s) PO QAM 11/11/201211/10 Inactive Amaryl 2 mg tablet RxNorm: 899239 1 Tablet(s) PO QAM 11/11/201204/05 Inactive omeprazole 40 mg capsule,delayed release RxNorm: 038395 1 Capsu le(s) PO BID 08/14/2012 08/08/2013 Inactive Bystolic 5 mg tablet RxNorm: 635880 1 Tablet(s) PO QD 08/14/201205/03 Inactive propranolol 60 mg tablet RxNorm: 246802 Tablet(s) PO TAKE 1 TAB LET TWICE DAILY 08/01/2012 09/01/2012 Inactive Bystolic 5 mg tablet RxNorm: 632434 1 Tablet(s) PO QD 07/21/201207/02 Inactive Bystolic 5 mg tablet RxNorm: 952360 1 Tablet(s) PO QD 07/21/201207/03 Inactive Prilosec 40 mg capsule,delayed release RxNorm: 521347 1 Capsule (s) PO BID 06/24/2012 07/21/2012 Inactive buspirone 10 mg tablet RxNorm: 210530 1 Tablet(s) PO TID 05/08/2012 0 05/23/2016 Inactive Valium 10 mg tablet RxNorm: 956920 1 Tablet(s) PO BID 04/02/201207/03 Inactive Endocet 10 mg-325 mg tablet RxNorm: 8704639 1 Tablet(s) PO QID 03/0607/21/2012 Inactive as needed for severe pain Valium 10 mg tablet RxNorm: 408940 1 Tablet(s) PO BID 02/27/2012 No S top Date Active Endocet 10 mg-325 mg tablet RxNorm: 1671344 1 Tablet(s) PO QID 02/0203/27/2012 Inactive as needed for severe pain Endocet 10 mg-325 mg tablet RxNorm: 8624542 1 Tablet(s) PO QID 01/0302/26/2012 Inactive as needed for severe pain Valium 10 mg tablet RxNorm: 400138 1 Tablet(s) PO BID 01/29/2012 No S top Date Active Protonix 40 mg tablet,delayed release RxNorm: 863247 1 Tablet(s ) PO QD 01/28/2012 07/21/2012 Inactive metformin ER 500 mg tablet,extended release 24 hr RxNorm: 86 0977 1 Tablet(s) PO QD 12/26/2011 07/20/2012 Inactive Trazadone 150 mg Tablet RxNorm: 1 Tablet(s) PO QHS prn sleep 1 04/23/2012 Inactive Endocet 10 mg-325 mg tablet RxNorm: 9040049 1 Tablet(s) PO QID 12/0301/24/2012 Inactive as needed for severe pain Nexium 40 mg capsule,delayed release RxNorm: 680139 1 Capsule(s ) PO QD 12/26/2011 01/27/2012 Inactive Symbicort 160 mcg-4.5 mcg/actuation HFA Aerosol Inhaler RxNo rm: 0097524 2 Puff(s) INH BID 12/04/2011 07/21/2012 Inactive Endocet 10 mg-325 mg tablet RxNorm: 9654069 1 Tablet(s) PO QID 11/0312/25/2011 Inactive as needed for severe pain metformin ER 500 mg tablet,extended release 24 hr RxNorm: 86 0977 1 Tablet(s) PO QD 11/20/2011 12/19/2011 Inactive metformin ER 500 mg tablet,extended release 24 hr RxNorm: 86 0977 1 Tablet(s) PO QD 11/20/2011 11/19/2011 Inactive amitriptyline 100 mg tablet RxNorm: 419959 Tablet(s) PO QHS 1 a nd /2 tabs QHS 11/12/2011 11/13/2011 Inactive Valium 10 mg tablet RxNorm: 241181 1 Tablet(s) PO BID 11/09/2011 No S top Date Active Endocet 10 mg-325 mg tablet RxNorm: 9402478 1 Tablet(s) PO QID 10/0211/14/2011 Inactive as needed for severe pain Aricept 10 mg Tab RxNorm: 771023 1 Tablet(s) PO QD 10/05/2011 013 Inactive Valium 10 mg tablet RxNorm: 506836 1 Tablet(s) PO BID 10/05/2011 No S top Date Active Endocet 10 mg-325 mg Tab RxNorm: 6817523 1 Tablet(s) PO QID 012 10/09/2011 Inactive as needed for severe pain Aricept 10 mg Tab RxNorm: 461224 1 Tablet(s) PO QD 08/14/2011 012 Inactive Endocet 10 mg-325 mg Tab RxNorm: 2385914 1 Tablet(s) PO QID 012 08/31/2011 Inactive as needed for severe pain Valium 10 mg Tab RxNorm: 323569 1 Tablet(s) PO BID 08/02/2011 No Stop Date Active propranolol 60 mg tablet RxNorm: 880459 1 Tablet(s) PO BID 07/26/19 12 09/11/2011 Inactive amitriptyline 100 mg tablet RxNorm: 917653 Tablet(s) PO QHS 1 a nd 1/2 tabs QHS 06/20/2011 09/11/2011 Inactive buspirone 10 mg tablet RxNorm: 901474 1 Tablet(s) PO BID 06/18/2011 0 09/15/2011 Inactive propranolol 60 mg Tab RxNorm: 031085 1 Tablet(s) PO BID 06/18/2011 Inactive gabapentin 800 mg Tab RxNorm: 897145 1 Tablet(s) PO BID 06/18/2011 Inactive ropinirole 2 mg tablet RxNorm: 169492 1 Tablet(s) PO QHS 05/29/2011 0 08/26/2011 Inactive trimethoprim 100 mg Tab RxNorm: 077952 1 Tablet(s) PO QHS 05/29/2011 07/21/2012 Inactive Endocet 10 mg-325 mg Tab RxNorm: 8574215 1 Tablet(s) PO QID 012 2011 Inactive as needed for severe pain Valium 10 mg Tab RxNorm: 997432 1 Tablet(s) PO QHS N eed to take med as prescribed. this is a 40 day RX. No early fills. 05/17/2011 05/20/2018 Inactive propranolol 60 mg Tab RxNorm: 016412 1 Tablet(s) PO BID 04/16/2011 Inactive Neurontin 800 mg Tab RxNorm: 690161 1 Tablet(s) PO QHS 04/05/201103/2011 Inactive Endocet 10 mg-325 mg Tab RxNorm: 4697593 1 Tablet(s) PO QID 012 05/02/2011 Inactive as needed for severe pain oxycodone-acetaminophen 10 mg-325 mg tablet RxNorm: 0600738 1 Ta blet(s) PO Q4H 03/28/2011 05/19/2012 Inactive Valium 10 mg Tab RxNorm: 391479 1 Tablet(s) PO QHS 03/28/2011 012 Inactive buspirone 10 mg Tab RxNorm: 071370 1 Tablet(s) PO BID 03/27/201106/02 Inactive propranolol 60 mg Tab RxNorm: 526002 1 Tablet(s) PO BID 03/19/2011 Inactive Klor-Con M20 20 mEq Tab RxNorm: 0482655 1 Tablet(s) PO QD 03/19/2011 07/21/2012 Inactive Aricept 10 mg Tab RxNorm: 160247 1 Tablet(s) PO QD 02/27/2011 012 Inactive propranolol 60 mg Tab RxNorm: 280497 1 Tablet(s) PO BID 02/19/2011 Inactive omeprazole 40 mg capsule,delayed release RxNorm: 827638 1 Capsu le(s) PO BID 01/24/2011 05/23/2011 Inactive clindamycin 300 mg capsule RxNorm: 838491 1 Capsule(s) PO TID 01/2402/02/2011 Inactive propranolol 60 mg Tab RxNorm: 417731 1 Tablet(s) PO BID 01/22/2011 No Stop Date Active nystatin 100,000 unit/g Topical Cream RxNorm: 578769 Applicatio n TOP BID 01/15/2011 01/14/2011 Inactive to rash for 2-4 week s Diflucan 200 mg Tab RxNorm: 047386 1 Tablet(s) PO QD 01/15/201101/28 Inactive buspirone 10 mg Tab RxNorm: 622329 1 Tablet(s) PO BID 01/08/201103/05 Inactive Valium 10 mg Tab RxNorm: 798275 1 Tablet(s) PO QHS 01/05/2011 012 Inactive Diflucan 200 mg Tab RxNorm: 916184 1 Tablet(s) PO QD 01/01/201101/14 Inactive Diflucan 200 mg Tab RxNorm: 663751 1 Tablet(s) PO QD 12/18/201012/31 Inactive Valium 10 mg Tab RxNorm: 098046 1 Tablet(s) PO QHS 12/12/2010 011 Inactive Diflucan 200 mg Tab RxNorm: 284798 1 Tablet(s) PO QD 12/07/201012/18 Inactive Aricept 10 mg Tab RxNorm: 740732 1 Tablet(s) PO QD 11/20/2010 011 Inactive ropinirole 1 mg Tab RxNorm: 811963 1 Tablet(s) PO QHS 11/16/201005/03 Inactive enalapril maleate 5 mg Tab RxNorm: 636727 1 Tablet(s) PO QD 011 05/20/2018 Inactive buspirone 10 mg Tab RxNorm: 161393 1 Tablet(s) PO BID 11/16/201012/02 Inactive Valium 10 mg Tab RxNorm: 193631 1 Tablet(s) PO QHS 11/07/2010 011 Inactive Pyridium 100 mg Tab RxNorm: 8895932 1 Tablet(s) PO TID 11/02/201004/2010 Inactive Macrobid 100 mg Cap RxNorm: 2792268 1 Capsule(s) PO BID 11/02/2010 Inactive buspirone 10 mg Tab RxNorm: 238791 1 Tablet(s) PO QHS 10/18/201005/02 Inactive propranolol 60 mg Tab RxNorm: 204902 1 Tablet(s) PO BID 09/18/2010 Inactive Valium 10 mg Tab RxNorm: 001005 1 Tablet(s) PO QHS 09/05/2010 011 Inactive Aricept 10 mg Tab RxNorm: 981705 1 Tablet(s) PO QD 08/14/2010 011 Inactive Valium 10 mg Tab RxNorm: 722487 1 Tablet(s) PO QHS 06/26/2010 011 Inactive ropinirole 1 mg Tab RxNorm: 447933 1 Tablet(s) PO QHS 06/19/201010/02 Inactive omeprazole 40 mg Cap, delayed release RxNorm: 168413 1 Capsule( s) PO QD 06/07/2010 10/04/2010 Inactive Endocet 10 mg-325 mg Tab RxNorm: 0468348 1 Tablet(s) PO QID as needed for severe pain 06/07/2010 03/07/2011 Inactive Endocet 10 mg-325 mg Tab RxNorm: 2881151 1 Tablet(s) PO QID as needed for severe pain 05/04/2010 06/02/2010 Inactive Valium 10 mg Tab RxNorm: 782226 1 Tablet(s) PO QHS 05/01/2010 011 Inactive propranolol 60 mg Tab RxNorm: 946578 1 Tablet(s) PO BID 04/03/2010 Inactive Valium 10 mg Tab RxNorm: 385531 1 Tablet(s) PO QHS 03/28/2010 011 Inactive omeprazole 40 mg Cap, Delayed Release RxNorm: 682354 1 Capsule( s) PO QD 03/28/2010 06/06/2010 Inactive Endocet 10 mg-325 mg Tab RxNorm: 7522507 1 Tablet(s) PO QID prn ari n 03/27/2010 05/20/2018 Inactive Valium 10 mg Tab RxNorm: 285226 1 Tablet(s) PO QHS 02/20/2010 011 Inactive Diflucan 100 mg Tab RxNorm: 576070 1 Tablet(s) PO BID 01/23/201003/2009 Inactive Diflucan 100 mg Tab RxNorm: 806663 1 Tablet(s) PO BID 01/05/201001/02 Inactive Aricept 10 mg Tab RxNorm: 476165 1 Tablet(s) PO QD 12/01/2009 011 Inactive OxyContin 20 mg 12 hr Tab RxNorm: 9030179 1 Tablet(s) PO BID 200904/05/2010 Inactive oxycodone-acetaminophen 10 mg-325 mg Tab RxNorm: 0189602 1 Table t(s) PO Q4H 11/22/2009 11/26/2009 Inactive Phenergan 25 mg Tab RxNorm: 454615 1 Tablet(s) PO PRN MIGRAINE 11/0303/07/2011 Inactive Demerol 100 mg Tab RxNorm: 061370 1 Tablet(s) PO PRN MIGRAINE 11/2203/07/2011 Inactive Oxycodone-Acetaminophen 10 mg-325 mg Tab RxNorm: 4736932 1 Table t(s) PO Q4H 10/11/2009 10/15/2009 Inactive Percocet 10 mg-325 mg Tab RxNorm: 9660601 1 Tablet(s) PO Q4H 200910/24/2009 Inactive propranolol 60 mg Tab RxNorm: 510164 1 Tablet(s) PO BID 08/29/2009 Inactive Valium 10 mg Tab RxNorm: 964244 1 Tablet(s) PO QHS 08/16/2009 010 Inactive Keflex 500 mg Cap RxNorm: 142386 1 Capsule(s) PO BID 07/25/200907/31 Inactive Hydroxyzine 25 mg Tab RxNorm: 558248 1 Tablet(s) PO TID 07/25/2009 Inactive Prednisone 20 mg Tab RxNorm: 834166 1 Tablet(s) PO BID 07/25/2009 Inactive Demerol 100 mg Tab RxNorm: 778893 1 Tablet(s) PO PRN MIGRAINE 07/25 No Stop Date Active Ropinirole 1 mg Tab RxNorm: 220338 1 Tablet(s) PO HS 07/20/200902/14 Inactive Valium 10 mg Tab RxNorm: 946819 1 Tablet(s) PO QHS 07/18/2009 010 Inactive Endocet 10 mg-325 mg Tab RxNorm: 9814070 1 Tablet(s) PO TID 010 07/07/2009 Inactive Demerol 100 mg Tab RxNorm: 301026 1 Tablet(s) PO PRN MIGRAINE 06/08 No Stop Date Active Ropinirole 1 mg Tab RxNorm: 316633 1 Tablet(s) PO HS 05/16/200907/14 Inactive ipratropium-albuterol 0.5 mg-3 mg(2.5 mg base)/3 mL ne bulization soln RxNorm: 7900178 1 Unit Dose INH Q4H as needed No Start Date Active MagOx 400 mg (241.3 mg magnesium) tablet RxNorm: 356909 1 Table t(s) PO BID No Start Date Active Vitamin B12 1000mcg Tablet RxNorm: 1 Tablet(s) PO QD No Start Date Active Vitamin D3 5,000 unit tablet RxNorm: 782806 1 Tablet(s) PO QD No Star t Date Active Tylenol Arthritis Pain 650 mg tablet,extended release RxNorm : 9314771 1 Tablet(s) PO Q4H No Start Date Active Lotrimin AF 2 % topical powder RxNorm: 564535 1 Application TOP BID No Start Date Active enalapril maleate 5 mg Tab RxNorm: 987166 1 Tablet(s) PO QD No Star t Date 07/20/2012 Inactive Demerol 100 mg Tab RxNorm: 419685 Tablet(s) PO PRN MIGRAINE No Star t Date 06/02/2009 Inactive metformin 500 mg tablet RxNorm: 618416 1 Tablet(s) PO QD No Start D ate 04/05/2013 Inactive Breo Ellipta 100 mcg-25 mcg/dose powder for inhalation RxNor m: 2081506 1 Puff(s) INH BID No Start Date 01/04/2016 Inactive Mag-Oxide 400 mg Tab RxNorm: 564711 1 Tablet(s) PO QD No Start Date 0 07/21/2012 Inactive Cipro 500 mg Tab RxNorm: 480820 1 Tablet(s) PO QD No Start Date 04/05 Inactive Ativan 0.5 mg tablet RxNorm: 763373 1 Tablet(s) PO TID as needed No Start Date 05/06/2019 Inactive melatonin 3 mg tablet RxNorm: 837452 2 Tablet(s) PO QHS No Start Da te 08/19/2018 Inactive buspirone 10 mg Tab RxNorm: 431820 1 Tablet(s) PO QD No Start Date Inactive sucralfate 100 mg/mL Oral Susp RxNorm: 650566 2 Teaspoon(s) PO QID No Start Date 07/21/2012 Inactive hydrocodone 5 mg-acetaminophen 325 mg tablet RxNorm: 658448 1 Tablet(s) PO Q4H as needed No Start Date 08/19/2018 Inactive Amaryl 2 mg tablet RxNorm: 425228 1 Tablet(s) PO BID No Start Date Inactive OxyContin 20 mg 12 hr Tab RxNorm: 6990564 1 Tablet(s) PO BID No Sta rt Date 11/27/2009 Inactive propranolol 40 mg tablet RxNorm: 748924 1 Tablet(s) PO QID No Start Date 01/19/2018 Inactive Trazadone 150 mg Tablet RxNorm: 1-2 Tablet(s) PO QHS prn sleep No Start Date 08/09/2010 Inactive propranolol 60 mg Tab RxNorm: 422248 1/2 Tablet(s) PO BID No Start Date 01/21/2011 Inactive insulin NPH and regular human subcutaneous RxNorm: 5801156 subcu taneous No Start Date 11/20/2018 Inactive Ativan 0.5 mg tablet RxNorm: 939258 1 Tablet(s) PO QID No Start Date 06/18/2016 Inactive Vasotec 5 mg Tab RxNorm: 130489 1 Tablet(s) PO BID No Start Date 06/2011 Inactive Toprol XL 50 mg tablet,extended release RxNorm: 380028 1 Tablet (s) PO BID No Start Date 04/05/2013 Inactive Ativan 0.5 mg tablet RxNorm: 636426 1 Tablet(s) PO TID No Start Date 05/25/2016 Inactive Klor-Con M20 20 mEq Tab RxNorm: 8204917 1 Tablet(s) PO QD No Start Date 03/19/2011 Inactive sumatriptan 100 mg tablet RxNorm: 738529 1 Tablet(s) PO at headache onset--repeat in 2hrs if remains No Start Date 07/21/2012 Inactive propranolol 60 mg Tab RxNorm: 862905 1 Tablet(s) PO BID No Start Da te 08/28/2009 Inactive Cholestyramine Light 4 gram Oral Powder RxNorm: 3709182 1 Unit Dose PO QD in water No Start Date 07/21/2012 Inactive nystatin 100,000 unit/g Topical Powder RxNorm: 538299 Applicati on TOP BID No Start Date 07/21/2012 Inactive vitamin J63-[id number] acid sublingual RxNorm: sublingual No Start Date 07/05/2013 Inactive cyclobenzaprine 5 mg tablet RxNorm: 013871 1/2-1 Tablet (s) PO TID as needed for muscle spasm No Start Date 07/18/2017 Inactive tramadol 50 mg tablet RxNorm: 417546 2 Tablet(s) PO TID as need ed for pain No Start Date 09/01/2014 Inactive aspirin 81 mg Tab RxNorm: 461290 1 Tablet(s) PO QOD No Start Date 04/2013 Inactive Vitamin B12 1000mcg Tablet RxNorm: 1 Tablet(s) PO QD No Start Date 07/18/2017 Inactive cholestyramine (with sugar) 4 gram oral powder RxNorm: 37980 3 1 Unit(s) PO QD as needed No Start Date 05/20/2018 Inactive ProAir HFA 90 mcg/Actuation Aerosol Inhaler RxNorm: 540905 2 Puff(s) INH Q4H prn shortness of breath No Start Date 07/21/2012 Inactive pravastatin 10 mg Tab RxNorm: 296667 1 Tablet(s) PO QD No Start Date 07/21/2012 Inactive gabapentin 800 mg Tab RxNorm: 407056 1 Tablet(s) PO BID No Start Da te 06/03/2011 Inactive Endocet 10 mg-325 mg Tab RxNorm: 5813870 1 Tablet(s) PO TID No Star t Date 06/02/2009 Inactive Naproxen 500 mg Tab RxNorm: 978798 1 Tablet(s) PO BID No Start Date 0 04/05/2010 Inactive Valium 10 mg Tab RxNorm: 055023 1 Tablet(s) PO BID No Start Date 07/04 Inactive enalapril maleate 5 mg Tab RxNorm: 345979 1 Tablet(s) PO QD No Star t Date 11/15/2010 Inactive doxepin 10 mg capsule RxNorm: 5047165 2 Capsule(s) PO QHS No Start Date 09/17/2018 Inactive MS Contin 15 mg Tab RxNorm: 142582 1 Tablet(s) PO BID No Start Date 0 09/18/2010 Inactive buspirone 5 mg tablet RxNorm: 054289 1 Tablet(s) PO TID No Start Da te 12/01/2013 Inactive [place] 3 Fish Oil Cap RxNorm: 1 Capsule(s) PO QD No Start Date 07/03 Inactive enalapril maleate 5 mg Tab RxNorm: 402938 1/2 Tablet(s) PO QD No St art Date 03/07/2011 Inactive Lyrica 75 mg capsule RxNorm: 789384 1 Capsule(s) PO QHS No Start Da te 02/08/2014 Inactive Lopressor 100 mg tablet RxNorm: 931406 1 Tablet(s) PO BID No Start Date 06/08/2018 Inactive Lantus Solostar U-100 Insulin 100 unit/mL (3 mL) subcu taneous pen RxNorm: 774224 45 Unit(s) SQ QAM No Start Date 05/20/2018 Inactive aspirin 81 mg tablet RxNorm: 665060 1 Tablet(s) PO QD No Start Date 0 09/14/2015 Inactive diltiazem CD 240 mg capsule,extended release 24 hr RxNorm: 8 91593 1 Capsule(s) PO QD No Start Date 05/25/2019 Inactive insulin NPH isophane U-100 human subcutaneous RxNorm: 789988 beckwith bcutaneous No Start Date 04/20/2019 Inactive sumatriptan 100 mg tablet RxNorm: 471673 1 Tablet(s) PO at headache onset. May repeat 1 in two hours if headache remains. Max of 2 per 24 hours No Start Date 04/01/2018 Inactive gabapentin 300 mg capsule RxNorm: 461689 1 Capsule(s) PO QHS No Sta rt Date 02/04/2018 Inactive Topamax 25 mg Tab RxNorm: 765191 Oral No Start Date 03/07/2011 In active Senokot-S 8.6 mg-50 mg Tab RxNorm: 8583841 1 Tablet(s) PO QD No Sta rt Date 03/07/2011 Inactive metformin ER 500 mg 24 hr tablet,extended release RxNorm: 18 86359 1 Tablet(s) PO QD No Start Date 05/20/2018 Inactive Symbicort 80 mcg-4.5 mcg/actuation HFA Aerosol Inhaler RxNor m: 3751982 2 Puff(s) INH BID No Start Date 04/05/2013 Inactive metoprolol tartrate 25 mg tablet RxNorm: 682382 1 Tablet(s) PO BID No Start Date 05/20/2019 Inactive propranolol 60 mg Tab RxNorm: 573518 1/2 Tablet(s) PO BID No Start Date 07/21/2012 Inactive metformin ER 500 mg 24 hr tablet,extended release RxNorm: 18 61059 2 Tablet(s) PO QD No Start Date 12/16/2017 Inactive Insulin Syringe 1 mL 29 gauge x 1/2" RxNorm: 2 s yringes daily with insulin Dx: E11.65 No Start Date 10/07/2018 Inactive Amitriptyline 75 mg Tab RxNorm: 035181 1 Tablet(s) PO QHS No Start Date 10/23/2009 Inactive donepezil 10 mg Tab RxNorm: 062093 1 Tablet(s) PO QD No Start Date Inactive Lantus Solostar U-100 Insulin 100 unit/mL (3 mL) subcu taneous pen RxNorm: 213453 36 Unit(s) SQ QAM No Start Date 12/24/2017 Inactive Miacalcin 200 unit/Actuation Nasal [place] Aerosol RxNorm: 261 204 1 [place] NASAL QD Alternate nostrils each day No Start Date 04/05/2010 Inactive Amitriptyline 150 mg Tab RxNorm: 100859 1 Tablet(s) PO QHS No Start Date 01/04/2010 Inactive Bystolic 5 mg tablet RxNorm: 519227 1 Tablet(s) PO QD No Start Date 0 08/13/2012 Inactive Aricept 10 mg Tab RxNorm: 590259 1 Tablet(s) PO QD No Start Date 11/03 Inactive Lantus Solostar U-100 Insulin 100 unit/mL (3 mL) subcu taneous pen RxNorm: 630323 50 Unit(s) SQ QAM No Start Date 08/27/2018 Inactive albuterol sulfate 2.5 mg/3 mL (0.083 %) Neb Solution RxNorm: 383285 1 Unit Dose INH QID as needed No Start Date 08/23/2015 Inactive Symbicort 160 mcg-4.5 mcg/actuation HFA Aerosol Inhaler RxNo rm: 0763419 2 Puff(s) INH BID No Start Date 12/03/2011 Inactive Savella 50 mg Tab RxNorm: 818906 1 Tablet(s) PO BID No Start Date 04/2010 Inactive amitriptyline 100 mg Tab RxNorm: 012186 1 1/2 Tablet(s) PO QHS No S tart Date 06/19/2011 Inactive nystatin 100,000 unit/g Topical Cream RxNorm: 138369 Ap plication TOP BID to rash for 2-4 weeks No Start Date 01/14/2011 Inactive Trelegy Ellipta 100 mcg-62.5 mcg-25 mcg powder for inhalatio n RxNorm: 0434539 1 Puff(s) INH QD No Start Date 12/16/2017 Inactive Lyrica 150 mg capsule RxNorm: 714911 1 Capsule(s) PO QHS No Start D ate 12/04/2015 Inactive sennosides 8.6 mg tablet RxNorm: 281806 1 Tablet(s) PO BID No Start Date 09/07/2018 Inactive metformin ER 500 mg tablet,extended release 24 hr RxNorm: 86 0975 1 Tablet(s) PO QD No Start Date 10/22/2017 Inactive Fish Oil 1,000 mg Cap RxNorm: 1 Capsule(s) PO QD No Start Date 06/2011 Inactive Zyrtec 10 mg Tab RxNorm: 8768404 1 Tablet(s) PO QD No Start Date 07/03 Inactive albuterol sulfate HFA 90 mcg/actuation aerosol inhaler RxNor m: 7099871 2 Puff(s) INH Q4H as needed for cough No Start Date 09/30/2013 Inactive trazodone 150 mg tablet RxNorm: 639591 1 Tablet(s) PO QHS No Start Date 07/21/2012 Inactive Spiriva with HandiHaler 18 mcg & inhalation capsules RxNorm: 203711 1 Capsule(s) INH QD No Start Date 04/05/2013 Inactive Coreg 3.125 mg Tab RxNorm: 955564 1 Tablet(s) PO BID No Start Date Inactive Phenergan 25 mg Tab RxNorm: 918215 Tablet(s) PO PRN MIGRAINE No Sta rt Date 11/21/2009 Inactive Vitamin D 50,000 unit Cap RxNorm: 6724393 1 Capsule(s) PO QW No Sta rt Date 03/07/2011 Inactive Januvia 100 mg tablet RxNorm: 030066 1 Tablet(s) PO QD No Start Date 10/25/2015 Inactive Eliquis 5 mg tablet RxNorm: 7315679 1 Tablet(s) PO BID No Start Date 08/19/2018 Inactive Advair Diskus 500 mcg-50 mcg/Dose for Inhalation RxNorm: 648538 1 INH BID No Start Date 07/21/2012 Inactive Vitamin D3 5,000 unit tablet RxNorm: 194124 1 Tablet(s) PO QD No St art Date 07/18/2017 Inactive Amaryl 2 mg tablet RxNorm: 951875 1 Tablet(s) PO QD No Start Date 06/2015 Inactive Actos 30 mg tablet RxNorm: 394245 1 Tablet(s) PO QD No Start Date Inactive promethazine 25 mg tablet RxNorm: 408652 1 Tablet(s) PO Q4H prn N/V No Start Date 07/21/2012 Inactive ProAir HFA 90 mcg/actuation Aerosol Inhaler RxNorm: 567120 2 Puff(s) INH Q4H prn dyspnea No Start Date 07/21/2012 Inactive Dexilant 60 mg Capsule RxNorm: 056974 1 Capsule(s) PO QD No Start D ate 01/27/2012 Inactive Lantus Solostar U-100 Insulin 100 unit/mL (3 mL) subcu taneous pen RxNorm: 658572 38 Unit(s) SQ QAM No Start Date 05/20/2018 Inactive Valium 10 mg Tab RxNorm: 403148 1 Tablet(s) PO QHS AND PRN No Start Date 10/24/2009 Inactive ZOFRAN ODT 8 mg disintegrating tablet RxNorm: 618797 1 Tablet(s ) PO Q6H No Start [...] Date S vice Location MICROALBUMIN URINE RANDOM 59995 MICRL MG/L 14.9 MG/L Unknown MICROALBUMIN URINE RANDOM 95112 XM.ALB/CRE 6.1 MG/GCR Unknown MICROALBUMIN URINE RANDOM 50951 CREAT MG/D 243 MG/DL Unknown MICROALBUMIN URINE RANDOM 04521 CRE/100 2.43 G/L 03/05 Unknown PROTEIN/CREAT URINE WITH RATIO 35710|66520 PROT R U 14 MG/D L 04/01/2014 Unknown PROTEIN/CREAT URINE WITH RATIO 85071|88729 CREAT R U 254 MG/ DL 04/01/2014 Unknown PROTEIN/CREAT URINE WITH RATIO 92175|36274 XRATIO P/C 55 MG/ G 04/01/2014 Unknown URINALYSIS 26111 PROTEIN UR NEG 04/28/2010 Unknown URINALYSIS 91846 HEMGLBN UR NEG 04/28/2010 Unknown URINALYSIS 92722 GLUCOSE UR NEG 04/28/2010 Unknown URINALYSIS 61443 KETONES UR NEG 04/28/2010 Unknown URINALYSIS 77857 PH U 5.5 04/28/2010 Unknown URINALYSIS 73035 SP GR U 1.025 04/28/2010 Unknown URINALYSIS 08684 BILRUBN UR NEG 04/28/2010 Unknown URINALYSIS 15306 LEUKO UR 2+ 04/28/2010 Unknown URINALYSIS 35944 NITRITE UR NEG 04/28/2010 Unknown MICR CUL? [id number] WBC/HPF 6-10 04/28/2010 Unknown MICR CUL? 3107363 RBC/HPF 0-5 04/28/2010 Unknown MICR CUL? [id number] HYAL CAST 16-25 04/28/2010 Unknown MICR CUL? [id number] SP TO YOLIE? NO 04/28/2010 Unknown MICR CUL? [id number] APPEAR UR NORMAL 04/28/2010 Unknown MICR CUL? [id number] SQ EPI/LPF FEW 04/28/2010 Unknown Procedures Procedure Codes Date URINALYSIS NONAUTO W/O SCOPE CPT-4: 43212 04/16/2019 URINE CULTURE/ COLONY COUNT CPT-4: 39760 04/16/2019 CEFTRIAXONE SODIUM INJECTION CPT-4: J0696 04/16/2019 THER/PROPH/DIAG INJ SC/IM CPT-4: 06726 04/16/2019 DRAIN/INJECT JOINT/BURSA CPT-4: 99298 01/22/2019 TRIAMCINOLONE ACET INJ NOS CPT-4: J3301 01/22/2019 DEXAMETHASONE SODIUM PHOS CPT-4: J1100 01/22/2019 URINE CULTURE/ COLONY COUNT CPT-4: 19662 01/07/2019 URINALYSIS NONAUTO W/O SCOPE CPT-4: 26550 01/07/2019 CEFTRIAXONE SODIUM INJECTION CPT-4: J0696 01/07/2019 THER/PROPH/DIAG INJ SC/IM CPT-4: 49766 01/07/2019 FLU VACC PRSV FREE INC ANTIG 65 AND OLDER CPT-4: 23753 12/24/2018 FLU VACC PRSV FREE INC ANTIG 65 AND OLDER CPT-4: 94721 12/24/2018 ADMIN INFLUENZA VIRUS VAC CPT-4: G0008 12/24/2018 THER/PROPH/DIAG INJ SC/IM CPT-4: 17480 11/04/2018 KETOROLAC TROMETHAMINE INJ CPT-4: J1885 11/04/2018 PROMETHAZINE HCL INJECTION CPT-4: J2550 11/04/2018 PPPS, subseq visit CPT-4: G0439 09/18/2018 THER/PROPH/DIAG INJ SC/IM CPT-4: 60810 04/01/2018 KETOROLAC TROMETHAMINE INJ CPT-4: J1885 04/01/2018 PROMETHAZINE HCL INJECTION CPT-4: J2550 04/01/2018 URINE CULTURE/ COLONY COUNT CPT-4: 13991 03/17/2018 URINALYSIS NONAUTO W/O SCOPE CPT-4: 62090 03/17/2018 FLU VACC PRSV FREE INC ANTIG 65 AND OLDER CPT-4: 95665 12/17/2017 PNEUMOCOCCAL VACC 23 RANDALL IM CPT-4: 81890 12/17/2017 ADMIN INFLUENZA VIRUS VAC CPT-4: G0008 12/17/2017 ADMIN PNEUMOCOCCAL VACCINE CPT-4: G0009 12/17/2017 PPPS, subseq visit CPT-4: G0439 09/17/2017 THER/PROPH/DIAG INJ SC/IM CPT-4: 61955 08/26/2017 KETOROLAC TROMETHAMINE INJ CPT-4: J1885 08/26/2017 PROMETHAZINE HCL INJECTION CPT-4: J2550 08/26/2017 URINALYSIS NONAUTO W/O SCOPE CPT-4: 73857 07/19/2017 URINE CULTURE/ COLONY COUNT CPT-4: 79948 07/19/2017 CEFTRIAXONE SODIUM INJECTION CPT-4: J0696 07/19/2017 THER/PROPH/DIAG INJ SC/IM CPT-4: 15817 07/19/2017 THER/PROPH/DIAG INJ SC/IM CPT-4: 67482 07/19/2017 TRIAMCINOLONE ACET INJ NOS CPT-4: J3301 07/19/2017 PRESCRIP TRANSMIT VIA ERX SY CPT-4: G8553 05/07/2017 PRESCRIP TRANSMIT VIA ERX SY CPT-4: G8553 02/22/2017 PRESCRIP TRANSMIT VIA ERX SY CPT-4: G8553 01/23/2017 FLU VACC PRSV FREE INC ANTIG 65 AND OLDER CPT-4: 75145 12/20/2016 PNEUMOCOCCAL VACC 13 RANDALL IM CPT-4: 59926 12/20/2016 ADMIN INFLUENZA VIRUS VAC CPT-4: G0008 12/20/2016 ADMIN PNEUMOCOCCAL VACCINE CPT-4: G0009 12/20/2016 URINALYSIS NONAUTO W/O SCOPE CPT-4: 58816 10/08/2016 URINE CULTURE/ COLONY COUNT CPT-4: 75202 10/08/2016 PRESCRIP TRANSMIT VIA ERX SY CPT-4: G8553 10/08/2016 PRESCRIP TRANSMIT VIA ERX SY CPT-4: G8553 09/19/2016 PRESCRIP TRANSMIT VIA ERX SY CPT-4: G8553 08/20/2016 PRESCRIP TRANSMIT VIA ERX SY CPT-4: G8553 02/29/2016 KETOROLAC TROMETHAMINE INJ CPT-4: J1885 02/02/2016 THER/PROPH/DIAG INJ SC/IM CPT-4: 24594 02/02/2016 PROMETHAZINE HCL INJECTION CPT-4: J2550 02/02/2016 PRESCRIP TRANSMIT VIA ERX SY CPT-4: G8553 02/02/2016 FLU VACC PRSV FREE INC ANTIG 65 AND OLDER CPT-4: 64679 01/05/2016 PPPS, subseq visit CPT-4: G0439 01/05/2016 ADMIN INFLUENZA VIRUS VAC CPT-4: G0008 01/05/2016 URINE CULTURE/ COLONY COUNT CPT-4: 75826 12/05/2015 URINALYSIS NONAUTO W/O SCOPE CPT-4: 02331 12/05/2015 PRESCRIP TRANSMIT VIA ERX SY CPT-4: G8553 12/05/2015 PRESCRIP TRANSMIT VIA ERX SY CPT-4: G8553 10/26/2015 URINALYSIS NONAUTO W/O SCOPE CPT-4: 67287 10/05/2015 URINE CULTURE/ COLONY COUNT CPT-4: 52391 10/05/2015 PRESCRIP TRANSMIT VIA ERX SY CPT-4: G8553 10/05/2015 SERVICE REQUIRED FOR PMD CPT-4: G0372 09/15/2015 PRESCRIP TRANSMIT VIA ERX SY CPT-4: G8553 09/15/2015 SPECIAL REPORTS OR FORMS CPT-4: 42850 08/25/2015 PRESCRIP TRANSMIT VIA ERX SY CPT-4: G8553 07/05/2015 URINALYSIS NONAUTO W/O SCOPE CPT-4: 17064 03/30/2015 ASSAY, GLUCOSE, BLOOD QUANT CPT-4: 88194 03/30/2015 URINE CULTURE/ COLONY COUNT CPT-4: 41222 03/30/2015 PRESCRIP TRANSMIT VIA ERX SY CPT-4: G8553 03/30/2015 PRESCRIP TRANSMIT VIA ERX SY CPT-4: G8553 02/03/2015 FLU VACC PRSV FREE INC ANTIG 65 AND OLDER CPT-4: 24313 12/29/2014 ADMIN INFLUENZA VIRUS VAC CPT-4: G0008 12/29/2014 PRESCRIP TRANSMIT VIA ERX SY CPT-4: G8553 12/29/2014 PRESCRIP TRANSMIT VIA ERX SY CPT-4: G8553 09/02/2014 PROTEIN/CREAT URINE WITH RATIO CPT-4: 27949|33086 5 MICROALBUMIN QUANTITATIVE CPT-4: 23098 04/01/2014 PRESCRIP TRANSMIT VIA ERX SY CPT-4: G8553 03/16/2014 PRESCRIP TRANSMIT VIA ERX SY CPT-4: G8553 03/09/2014 THER/PROPH/DIAG INJ SC/IM CPT-4: 39940 03/01/2014 TRIAMCINOLONE ACET INJ NOS CPT-4: J3301 03/01/2014 PRESCRIP TRANSMIT VIA ERX SY CPT-4: G8553 02/09/2014 URINE CULTURE/ COLONY COUNT CPT-4: 82339 10/30/2013 URINALYSIS NONAUTO W/O SCOPE CPT-4: 48915 10/21/2013 URINE CULTURE/ COLONY COUNT CPT-4: 66379 10/21/2013 DESTRUCT PREMALG LESION (Cryosurgery) CPT-4: 69152 PRESCRIP TRANSMIT VIA ERX SY CPT-4: G8553 10/05/2013 URINALYSIS NONAUTO W/O SCOPE CPT-4: 33724 08/04/2013 URINE CULTURE/ COLONY COUNT CPT-4: 46413 08/04/2013 PRESCRIP TRANSMIT VIA ERX SY CPT-4: G8553 08/04/2013 THER/PROPH/DIAG INJ SC/IM CPT-4: 08794 07/13/2013 TRIAMCINOLONE ACET INJ NOS CPT-4: J3301 07/13/2013 PRESCRIP TRANSMIT VIA ERX SY CPT-4: G8553 05/27/2013 URINALYSIS NONAUTO W/O SCOPE CPT-4: 84081 05/25/2013 URINE CULTURE/ COLONY COUNT CPT-4: 27304 05/25/2013 THER/PROPH/DIAG INJ SC/IM CPT-4: 82915 05/04/2013 VITAMIN B12 INJECTION CPT-4: J3420 05/04/2013 THER/PROPH/DIAG INJ SC/IM CPT-4: 78316 04/17/2013 VITAMIN B12 INJECTION CPT-4: J3420 04/17/2013 THER/PROPH/DIAG INJ SC/IM CPT-4: 62143 04/17/2013 METHYLPREDNISOLONE 40 MG INJ CPT-4: J1030 04/17/2013 TRIAMCINOLONE ACET INJ NOS CPT-4: J3301 04/17/2013 URINALYSIS NONAUTO W/O SCOPE CPT-4: 41010 04/06/2013 URINE CULTURE/ COLONY COUNT CPT-4: 19899 04/06/2013 PRESCRIP TRANSMIT VIA ERX SY CPT-4: G8553 04/06/2013 KETOROLAC TROMETHAMINE INJ CPT-4: J1885 06/25/2012 PROMETHAZINE HCL INJECTION CPT-4: J2550 06/25/2012 THER/PROPH/DIAG INJ SC/IM CPT-4: 30581 06/25/2012 THER/PROPH/DIAG INJ SC/IM CPT-4: 05764 06/24/2012 METHYLPREDNISOLONE 40 MG INJ CPT-4: J1030 06/24/2012 TRIAMCINOLONE ACET INJ NOS CPT-4: J3301 06/24/2012 URINE CULTURE/ COLONY COUNT CPT-4: 89540 06/24/2012 THER/PROPH/DIAG INJ SC/IM CPT-4: 82420 05/20/2012 KETOROLAC TROMETHAMINE INJ CPT-4: J1885 05/20/2012 THER/PROPH/DIAG INJ SC/IM CPT-4: 49751 05/20/2012 PROMETHAZINE HCL INJECTION CPT-4: J2550 05/20/2012 DRAIN/INJECT JOINT/BURSA CPT-4: 47974 02/13/2012 METHYLPREDNISOLONE 40 MG INJ CPT-4: J1030 02/13/2012 TRIAMCINOLONE ACET INJ NOS CPT-4: J3301 02/13/2012 THER/PROPH/DIAG INJ SC/IM CPT-4: 35608 11/14/2011 METHYLPREDNISOLONE 40 MG INJ CPT-4: J1030 11/14/2011 TRIAMCINOLONE ACET INJ NOS CPT-4: J3301 11/14/2011 THER/PROPH/DIAG INJ SC/IM CPT-4: 94755 09/12/2011 KETOROLAC TROMETHAMINE INJ CPT-4: J1885 09/12/2011 THER/PROPH/DIAG INJ SC/IM CPT-4: 45820 08/09/2011 METHYLPREDNISOLONE 40 MG INJ CPT-4: J1030 08/09/2011 TRIAMCINOLONE ACET INJ NOS CPT-4: J3301 08/09/2011 URINE CULTURE/ COLONY COUNT CPT-4: 51138 07/03/2011 URINE CULTURE/ COLONY COUNT CPT-4: 00456 06/04/2011 THER/PROPH/DIAG INJ SC/IM CPT-4: 68320 05/03/2011 METHYLPREDNISOLONE 40 MG INJ CPT-4: J1030 05/03/2011 TRIAMCINOLONE ACET INJ NOS CPT-4: J3301 05/03/2011 URINALYSIS NONAUTO W/O SCOPE CPT-4: 90297 01/24/2011 URINE CULTURE/ COLONY COUNT CPT-4: 80973 01/24/2011 FLUZONE, 5ML (Medicare) CPT-4: Q2038 01/02/2011 ADMIN INFLUENZA VIRUS VAC CPT-4: G0008 01/02/2011 ASSAY, GLUCOSE, BLOOD QUANT CPT-4: 57668 12/07/2010 URINE CULTURE/ COLONY COUNT CPT-4: 33910 11/02/2010 THER/PROPH/DIAG INJ SC/IM CPT-4: 88706 10/18/2010 METHYLPREDNISOLONE 40 MG INJ CPT-4: J1030 10/18/2010 TRIAMCINOLONE ACET INJ NOS CPT-4: J3301 10/18/2010 TRIAMCINOLONE ACET INJ NOS CPT-4: J3301 05/11/2010 METHYLPREDNISOLONE 40 MG INJ CPT-4: J1030 05/11/2010 THER/PROPH/DIAG INJ SC/IM CPT-4: 77390 05/11/2010 TRIAMCINOLONE ACET INJ NOS CPT-4: J3301 02/09/2010 METHYLPREDNISOLONE 40 MG INJ CPT-4: J1030 02/09/2010 THER/PROPH/DIAG INJ SC/IM CPT-4: 54801 02/09/2010 SERVICE REQUIRED FOR PMD CPT-4: G0372 02/09/2010 FLU VACCINE 3 YRS & > IM UP 64 CPT-4: 21201 0 PNEUMOCOCCAL VACC 23 RANDALL IM CPT-4: 77237 12/07/2009 ADMIN INFLUENZA VIRUS VAC CPT-4: G0008 12/07/2009 ADMIN PNEUMOCOCCAL VACCINE CPT-4: G0009 12/07/2009 TRIAMCINOLONE ACET INJ NOS CPT-4: J3301 05/26/2009 THER/PROPH/DIAG INJ SC/IM CPT-4: 35483 05/26/2009 METHYLPREDNISOLONE 80 MG INJ CPT-4: J1040 [...] 1: 114/72 Code: 8480-6 BMI: 37.8 Code: 27272-4 Heart Rate 1: 72 bpm Height: 5'3" [...] 1: 106/68 Code: 8480-6 BMI: 35.7 Code: 30588-0 Heart Rate 1: 72 bpm Height: 5'4" Respiratory Rate: 20 bpm SpO2: 98% Tempera ture: 36.7 (C) / 98.0 (F) Weight: 208 lbs 04/16/2018 Blood Pressure 1: 132/82 Code: 8480-6 BMI: 37.9 Code: 50949-8 Heart Rate 1: 72 bpm Height: 5'4" Respiratory Rate: 20 bpm SpO2: 96% Tempera ture: 37.1 (C) / 98.8 (F) Weight: 221 lbs 04/01/2018 Blood Pressure 1: 150/90 Code: 8480-6 Heart Rate 1: 72 bpm Respiratory Rate: 22 bpm SpO2: 95% Temperature: 36.4 (C) / 97.6 (F) We ight: 216 lbs 03/06/2018 Blood Pressure 1: 126/78 Code: 8480-6 BMI: 37.4 Code: 13415-3 Heart Rate 1: 68 bpm Height: 5'4" [...] ight: 222 lbs 12/25/2017 BMI: 37.8 Code: 74639-7 Heart Rate 1: 76 bpm Height: 5 '4" Respiratory Rate: 20 bpm SpO2: 96% Temperature: 37.3 (C) / 99.2 (F) Weight: 220 lbs 12/17/2017 Blood Pressure 1: 132/78 Code: 8480-6 BMI: 37.2 Code: 77202-8 Heart Rate 1: 88 bpm Height: 5'4" Respiratory Rate: 20 bpm SpO2: 96% Tempera ture: 37.3 (C) / 99.2 (F) Weight: 217 lbs 10/30/2017 Blood Pressure 1: 114/68 Code: 8480-6 BMI: 36.4 Code: 34518-0 Heart Rate 1: 72 bpm Height: 5'4" Respiratory Rate: 22 bpm SpO2: 96% Tempera ture: 36.8 (C) / 98.2 (F) Weight: 212 lbs 10/23/2017 Blood Pressure 1: 124/78 Code: 8480-6 Heart Rate 1: 72 bpm Respiratory Rate: 24 bpm SpO2: 94% Temperature: 36.6 (C) / 97.9 (F) We ight: 212 lbs 09/17/2017 Blood Pressure 1: 128/82 Code: 8480-6 BMI: 37.4 Code: 92782-3 Heart Rate 1: 72 bpm Height: 5'4" Respiratory Rate: 20 bpm SpO2: 96% Tempera ture: 37.0 (C) / 98.6 (F) Weight: 218 lbs 07/19/2017 Blood Pressure 1: 136/84 Code: 8480-6 BMI: 36.6 Code: 48670-0 Heart Rate 1: 88 bpm Height: 5'4" Respiratory Rate: 20 bpm SpO2: 97% Tempera ture: 36.7 (C) / 98.0 (F) Weight: 213 lbs 05/29/2017 Blood Pressure 1: 136/82 Code: 8480-6 BMI: 36.7 Code: 99566-5 Heart Rate 1: 72 bpm Height: 5'4" Respiratory Rate: 20 bpm SpO2: 97% Tempera ture: 36.9 (C) / 98.4 (F) Weight: 214 lbs 05/07/2017 Blood Pressure 1: 122/80 Code: 8480-6 BMI: 37.1 Code: 71447-9 Heart Rate 1: 80 bpm Height: 5'4" Respiratory Rate: 24 bpm SpO2: 96% Tempera ture: 36.1 (C) / 97.0 (F) Weight: 216 lbs 03/18/2017 BMI: 36.7 Code: 17406-4 Heart Rate 1: 80 bpm Height: 5 '4" Respiratory Rate: 22 bpm SpO2: 95% Temperature: 36.9 (C) / 98.4 (F) Weight: 214 lbs 02/27/2017 Blood Pressure 1: 146/94 Code: 8480-6 BMI: 36.6 Code: 87743-6 Heart Rate 1: 76 bpm Height: 5'4" Respiratory Rate: 22 bpm SpO2: 97% Tempera ture: 36.6 (C) / 97.9 (F) Weight: 213 lbs 02/22/2017 Blood Pressure 1: 126/90 Code: 8480-6 BMI: 36.4 Code: 77078-0 Heart Rate 1: 84 bpm Height: 5'4" Respiratory Rate: 22 bpm SpO2: 95% Tempera ture: 36.9 (C) / 98.4 (F) Weight: 212 lbs 01/23/2017 Blood Pressure 1: 146/82 Code: 8480-6 BMI: 37.6 Code: 58655-9 Heart Rate 1: 96 bpm Height: 5'4" Respiratory Rate: 20 bpm SpO2: 96% Tempera ture: 36.9 (C) / 98.4 (F) Weight: 219 lbs 12/20/2016 Blood Pressure 1: 126/70 Code: 8480-6 BMI: 37.2 Code: 41680-8 Heart Rate 1: 76 bpm Height: 5'4" Respiratory Rate: 22 bpm SpO2: 95% Tempera ture: 36.6 (C) / 97.8 (F) Weight: 217 lbs 10/08/2016 Blood Pressure 1: 128/82 Code: 8480-6 BMI: 36.9 Code: 63734-0 Heart Rate 1: 76 bpm Height: 5'4" Respiratory Rate: 20 bpm SpO2: 95% Tempera ture: 37.0 (C) / 98.6 (F) Weight: 215 lbs 09/19/2016 Blood Pressure 1: 144/78 Code: 8480-6 BMI: 37.8 Code: 82108-7 Heart Rate 1: 76 bpm Height: 5'4" Respiratory Rate: 22 bpm SpO2: 95% Tempera ture: 37.0 (C) / 98.6 (F) Weight: 220 lbs 08/20/2016 Blood Pressure 1: 140/86 Code: 8480-6 BMI: 37.4 Code: 84863-7 Heart Rate 1: 80 bpm Height: 5'4" Respiratory Rate: 20 bpm SpO2: 95% Tempera ture: 36.9 (C) / 98.4 (F) Weight: 218 lbs 06/19/2016 Blood Pressure 1: 124/78 Code: 8480-6 BMI: 37.8 Code: 63751-4 Heart Rate 1: 74 bpm Height: 5'4" Respiratory Rate: 24 bpm SpO2: 96% Tempera ture: 36.9 (C) / 98.4 (F) Weight: 220 lbs 06/04/2016 Blood Pressure 1: 124 Code: 8480-6 BMI: 38.8 Code: 31753-0 Heart Rate 1: 72 bpm Height: 5'4" Respiratory Rate: 24 bpm SpO2: 95% Tempera ture: 36.8 (C) / 98.2 (F) Weight: 226 lbs 05/02/2016 Blood Pressure 1: 136/90 Code: 8480-6 BMI: 37.6 Code: 07077-2 Heart Rate 1: 72 bpm Height: 5'4" Respiratory Rate: 24 bpm SpO2: 96% Tempera ture: 36.9 (C) / 98.4 (F) Weight: 219 lbs 04/03/2016 Blood Pressure 1: 126/78 Code: 8480-6 BMI: 38.1 Code: 03120-4 Heart Rate 1: 72 bpm Height: 5'4" Respiratory Rate: 22 bpm SpO2: 94% Tempera ture: 36.9 (C) / 98.4 (F) Weight: 222 lbs 02/29/2016 Blood Pressure 1: 132/78 Code: 8480-6 Heart Rate 1: 78 bpm Height: Respiratory Rate: 24 bpm SpO2: 95% Temperature: 36.4 (C) / 97.6 (F) We ight: 02/02/2016 Blood Pressure 1: 124/78 Code: 8480-6 BMI: 37.6 Code: 70196-0 Heart Rate 1: 76 bpm Height: 5'4" Respiratory Rate: 20 bpm SpO2: 95% Tempera ture: 36.8 (C) / 98.2 (F) Weight: 219 lbs 01/05/2016 Blood Pressure 1: 126/70 Code: 8480-6 BMI: 37.1 Code: 60039-6 Heart Rate 1: 76 bpm Height: 5'4" Respiratory Rate: 20 bpm Temperature: 36 .6 (C) / 97.8 (F) Weight: 216 lbs 12/05/2015 Blood Pressure 1: 126/72 Code: 8480-6 BMI: 36.9 Code: 01572-7 Heart Rate 1: 92 bpm Height: 5'4" Respiratory Rate: 20 bpm Temperature: 36 .7 (C) / 98.1 (F) Weight: 215 lbs 10/26/2015 Blood Pressure 1: 142/80 Code: 8480-6 BMI: 36.4 Code: 67022-7 Heart Rate 1: 82 bpm Height: 5'4" Respiratory Rate: 24 bpm SpO2: 92% Tempera ture: 35.9 (C) / 96.7 (F) Weight: 212 lbs 10/05/2015 Blood Pressure 1: 136/82 Code: 8480-6 Heart Rate 1: 80 bpm Respiratory Rate: 18 bpm SpO2: 98% Temperature: 35.7 (C) / 96.3 (F) We ight: 214 lbs 09/15/2015 Blood Pressure 1: 116/80 Code: 8480-6 BMI: 34.6 Code: 40466-5 Heart Rate 1: 76 bpm Height: 5'6" Respiratory Rate: 20 bpm Temperature: 36 .6 (C) / 97.9 (F) Weight: 211 lbs 08/24/2015 Blood Pressure 1: 124/80 Code: 8480-6 BMI: 34.1 Code: 31733-5 Heart Rate 1: 68 bpm Height: 5'6" Respiratory Rate: 20 bpm Temperature: 36 .8 (C) / 98.3 (F) Weight: 208 lbs 07/05/2015 Blood Pressure 1: 114/78 Code: 8480-6 BMI: 33.9 Code: 63998-9 Heart Rate 1: 80 bpm Height: 5'6" Respiratory Rate: 20 bpm Temperature: 36 .6 (C) / 97.9 (F) Weight: 207 lbs 06/06/2015 Blood Pressure 1: 122/78 Code: 8480-6 BMI: 34.1 Code: 97478-1 Heart Rate 1: 76 bpm Height: 5'6" Respiratory Rate: 24 bpm SpO2: 96% Tempera ture: 36.4 (C) / 97.6 (F) Weight: 208 lbs 05/23/2015 Blood Pressure 1: 124/78 Code: 8480-6 Heart Rate 1: 76 bpm Respiratory Rate: 24 bpm SpO2: 93% Temperature: 36.8 (C) / 98.2 (F) We ight: 212 lbs 05/05/2015 Blood Pressure 1: 136/80 Code: 8480-6 BMI: 35.4 Code: 65900-4 Heart Rate 1: 76 bpm Height: 5'6" Respiratory Rate: 28 bpm Temperature: 37 .0 (C) / 98.6 (F) Weight: 216 lbs 03/30/2015 Blood Pressure 1: 132/86 Code: 8480-6 BMI: 35.2 Code: 28534-4 Heart Rate 1: 84 bpm Height: 5'6" Respiratory Rate: 24 bpm Temperature: 36 .7 (C) / 98.0 (F) Weight: 215 lbs 02/03/2015 Blood Pressure 1: 122/74 Code: 8480-6 BMI: 35.7 Code: 58356-1 Heart Rate 1: 84 bpm Height: 5'6" Respiratory Rate: 20 bpm Temperature: 36 .9 (C) / 98.5 (F) Weight: 218 lbs 12/29/2014 Blood Pressure 1: 132/80 Code: 8480-6 BMI: 35.1 Code: 66218-7 Heart Rate 1: 80 bpm Height: 5'6" Respiratory Rate: 20 bpm Temperature: 36 .6 (C) / 97.8 (F) Weight: 214 lbs 09/02/2014 Blood Pressure 1: 128/92 Code: 8480-6 BMI: 34.7 Code: 01323-5 Heart Rate 1: 84 bpm Height: 5'6" Respiratory Rate: 26 bpm Temperature: 36 .8 (C) / 98.2 (F) Weight: 212 lbs 08/25/2014 Blood Pressure 1: 124/80 Code: 8480-6 BMI: 34.7 Code: 56672-5 Heart Rate 1: 78 bpm Height: 5'6" Respiratory Rate: 22 bpm SpO2: 97% Tempera ture: 36.6 (C) / 97.8 (F) Weight: 212 lbs 04/01/2014 Blood Pressure 1: 142/84 Code: 8480-6 BMI: 34.4 Code: 08109-4 Heart Rate 1: 74 bpm Height: 5'5" Respiratory Rate: 20 bpm Temperature: 36 .4 (C) / 97.6 (F) Weight: 207 lbs 03/16/2014 Blood Pressure 1: 142/90 Code: 8480-6 BMI: 34.6 Code: 69219-3 Heart Rate 1: 76 bpm Height: 5'5" Respiratory Rate: 24 bpm Temperature: 36 .5 (C) / 97.7 (F) Weight: 208 lbs 03/09/2014 Blood Pressure 1: 116/70 Code: 8480-6 BMI: 35.3 Code: 16605-1 Heart Rate 1: 72 bpm Height: 5'5" [...] 1: 128/86 Code: 8480-6 BMI: 34.3 Code: 25389-1 Heart Rate 1: 84 bpm Height: 5'5" Respiratory Rate: 20 bpm Temperature: 36 .7 (C) / 98.0 (F) Weight: 206 lbs 12/23/2013 Blood Pressure 1: 122/70 Code: 8480-6 BMI: 34.3 Code: 30005-2 Heart Rate 1: 68 bpm Height: 5'5" Respiratory Rate: 20 bpm Temperature: 36 .8 (C) / 98.2 (F) Weight: 206 lbs 10/05/2013 Blood Pressure 1: 118/76 Code: 8480-6 BMI: 34.1 Code: 14581-3 Heart Rate 1: 68 bpm Height: 5'5" Respiratory Rate: 20 bpm SpO2: 98% Tempera ture: 36.6 (C) / 97.9 (F) Weight: 205 lbs 08/04/2013 Blood Pressure 1: 126/82 Code: 8480-6 BMI: 33.3 Code: 13346-9 Heart Rate 1: 76 bpm Height: 5'5" Respiratory Rate: 20 bpm Temperature: 36 .8 (C) / 98.2 (F) Weight: 200 lbs 07/03/2013 Blood Pressure 1: 124/82 Code: 8480-6 BMI: 33.3 Code: 61404-3 Heart Rate 1: 72 bpm Height: 5'5" Respiratory Rate: 22 bpm Temperature: 36 .1 (C) / 97.0 (F) Weight: 200 lbs 05/27/2013 Blood Pressure 1: 126/82 Code: 8480-6 Heart Rate 1: 74 bpm Respiratory Rate: 20 bpm Temperature: 36.0 (C) / 96.8 (F) Weight: 199 lbs 04/06/2013 Blood Pressure 1: 118/80 Code: 8480-6 BMI: 35.2 Code: 07549-5 Heart Rate 1: 80 bpm Height: 5'4" Respiratory Rate: 20 bpm Temperature: 37 .4 (C) / 99.3 (F) Weight: 205 lbs 11/10/2012 Blood Pressure 1: 128/82 Code: 8480-6 Heart Rate 1: 84 bpm Respiratory Rate: 20 bpm Temperature: 36.7 (C) / 98.0 (F) Weight: 199 lbs 09/02/2012 Blood Pressure 1: 116/82 Code: 8480-6 BMI: 34.2 Code: 05360-8 Heart Rate 1: 88 bpm Height: 5'4" Respiratory Rate: 22 bpm Temperature: 36 .6 (C) / 97.8 (F) Weight: 199 lbs 08/04/2012 Blood Pressure 1: 128/74 Code: 8480-6 BMI: 34.0 Code: 91565-1 Heart Rate 1: 92 bpm Height: 5'4" Respiratory Rate: 20 bpm Temperature: 36 .4 (C) / 97.5 (F) Weight: 198 lbs 07/21/2012 Blood Pressure 1: 124/86 Code: 8480-6 Heart Rate 1: 116 bpm Respiratory Rate: 24 bpm Temperature: 36.8 (C) / 98.2 (F) 07/02/2012 Blood Pressure 1: 116/88 Code: 8480-6 BMI: 33.6 Code: 96875-8 Heart Rate 1: 76 bpm Height: 5'4" Respiratory Rate: 20 bpm Temperature: 36 .8 (C) / 98.3 (F) Weight: 196 lbs 06/24/2012 Blood Pressure 1: 124/80 Code: 8480-6 BMI: 34.3 Code: 63687-2 Heart Rate 1: 72 bpm Height: 5'4" SpO2: 96% Temperature: 36.3 (C) / 97.3 (F) Weight: 200 lbs 05/20/2012 Blood Pressure 1: 116/88 Code: 8480-6 BMI: 33.8 Code: 02249-1 Heart Rate 1: 80 bpm Height: 5'4" Respiratory Rate: 22 bpm Temperature: 36 .9 (C) / 98.4 (F) Weight: 197 lbs 05/08/2012 Blood Pressure 1: 128/86 Code: 8480-6 BMI: 33.8 Code: 40467-0 Heart Rate 1: 76 bpm Height: 5'4" Respiratory Rate: 26 bpm SpO2: 95% Tempera ture: 36.1 (C) / 97.0 (F) Weight: 197 lbs 04/22/2012 Blood Pressure 1: 106/64 Code: 8480-6 BMI: 33.8 Code: 96624-6 Heart Rate 1: 70 bpm Height: 5'4" Temperature: 36.1 (C) / 97.0 (F) Weight: 197 lbs 02/13/2012 Blood Pressure 1: 126/82 Code: 8480-6 BMI: 34.7 Code: 40618-2 Heart Rate 1: 64 bpm Height: 5'4" Respiratory Rate: 20 bpm Temperature: 36 .6 (C) / 97.8 (F) Weight: 202 lbs 01/28/2012 Blood Pressure 1: 116/80 Code: 8480-6 BMI: 34.7 Code: 99781-2 Heart Rate 1: 76 bpm Height: 5'4" Respiratory Rate: 20 bpm Temperature: 36 .8 (C) / 98.3 (F) Weight: 202 lbs 12/26/2011 Blood Pressure 1: 132/82 Code: 8480-6 BMI: 36.0 Code: 61742-2 Heart Rate 1: 68 bpm Height: 5'4" Respiratory Rate: 22 bpm Temperature: 36 .7 (C) / 98.0 (F) Weight: 210 lbs 11/14/2011 Blood Pressure 1: 124/80 Code: 8480-6 BMI: 36.4 Code: 25553-1 Heart Rate 1: 76 bpm Height: 5'4" Respiratory Rate: 20 bpm Temperature: 36 .8 (C) / 98.2 (F) Weight: 212 lbs 09/12/2011 Blood Pressure 1: 108/74 Code: 8480-6 BMI: 37.1 Code: 12416-1 Heart Rate 1: 72 bpm Height: 5'4" Respiratory Rate: 20 bpm Temperature: 37 .0 (C) / 98.6 (F) Weight: 216 lbs 08/15/2011 Blood Pressure 1: 122/80 Code: 8480-6 BMI: 36.9 Code: 60005-9 Heart Rate 1: 76 bpm Height: 5'4" Respiratory Rate: 20 bpm Temperature: 36 .2 (C) / 97.1 (F) Weight: 215 lbs 08/09/2011 Blood Pressure 1: 112/78 Code: 8480-6 BMI: 36.9 Code: 64828-6 Heart Rate 1: 68 bpm Height: 5'4" Respiratory Rate: 20 bpm Temperature: 36 .7 (C) / 98.0 (F) Weight: 215 lbs 07/03/2011 Blood Pressure 1: 140/94 Code: 8480-6 BMI: 36.2 Code: 40072-5 Heart Rate 1: 68 bpm Height: 5'4" Temperature: 36.0 (C) / 96.8 (F) Weight: 211 lbs 06/04/2011 Blood Pressure 1: 124/70 Code: 8480-6 BMI: 36.7 Code: 30144-8 Heart Rate 1: 68 bpm Height: 5'4" Respiratory Rate: 20 bpm Temperature: 36 .6 (C) / 97.9 (F) Weight: 214 lbs 05/03/2011 Blood Pressure 1: 130/76 Code: 8480-6 BMI: 36.4 Code: 53063-0 Heart Rate 1: 74 bpm Height: 5'5" Temperature: 36.2 (C) / 97.2 (F) Weight: 219 lbs 04/05/2011 Blood Pressure 1: 124/86 Code: 8480-6 BMI: 35.9 Code: 11082-5 Heart Rate 1: 76 bpm Height: 5'6" Respiratory Rate: 22 bpm Temperature: 36 .3 (C) / 97.3 (F) Weight: 219 lbs 03/08/2011 Blood Pressure 1: 112/78 Code: 8480-6 BMI: 35.1 Code: 50111-4 Heart Rate 1: 80 bpm Height: 5'6" Respiratory Rate: 26 bpm Temperature: 36 .9 (C) / 98.4 (F) Weight: 214 lbs 01/24/2011 Blood Pressure 1: 110/82 Code: 8480-6 BMI: 35.6 Code: 59081-4 Heart Rate 1: 80 bpm Height: 5'6" Temperature: 36.1 (C) / 97.0 (F) Weight: 217 lbs 01/02/2011 Blood Pressure 1: 106/72 Code: 8480-6 BMI: 35.6 Code: 84073-8 Heart Rate 1: 76 bpm Height: 5'6" [...] 1: 120/74 Code: 8480-6 BMI: 35.9 Code: 37558-3 Heart Rate 1: 72 bpm Height: 5'5" Temperature: 36.3 (C) / 97.4 (F) Weight: 216 lbs 09/19/2010 Blood Pressure 1: 124/80 Code: 8480-6 BMI: 35.4 Code: 49736-9 Heart Rate 1: 76 bpm Height: 5'5" [...] 1: 122/78 Code: 8480-6 BMI: 37.4 Code: 78032-4 Heart Rate 1: 84 bpm Height: 5'5" [...] 12/17/2017 follow up 10/30/2017 follow up 10/23/2017 [facility] fwup from [facility] Annual Checkup 09/17/2017 [...] up 06/04/2016 1mo fwup follow up 05/02/2016 [facility] fwup follow up 04/03/2016 dyspnea 02/29/2016 low grade 99s follow up 02/02/2016 ER fwup diabetes mellitus 01/05/2016 painful urination 12/05/2015 follow up 10/26/2015 ER visit from at [facility] for COPD Exacerbation follow up [...] up 10/18/[address] Medrano last w [facility], having increased allergy symptoms. Would like steroid [...] 1 month f/u follow up 12/07/[facility], done with PT--finished about 2wks ago [...] R19.7] Diagnosis: Abdominal bloating[ICD10: R14.0] Belia Reid [facility] CPT- 4: 51553 06/08/2019 ([id number]) OFFICE/OUTPATIENT VISIT EST Diagnosis: Acute febrile illness[ICD10: R50.9] Diagnosis: Colitis[ICD10: K52.9] Belia Reid [facility] CPT-4: 35394 05/26/2019 ([id number]) OFFICE/OUTPATIENT VISIT EST Diagnosis: Chronic obstructive pulmonary disease, unspecified[ICD10: J44.9] Diagnosis: Pulmonary fibrosis[ICD10: J84.10] Diagnosis: Intermittent stridor[ICD10: R06.1] Diagnosis: Muscle weakness[ICD10: M62.81] Belia HSUQUELINE Bushra Mayda ANUSHKA [employer] [facility] CPT-4: 13468 05/13/2019 ([id number]) OFFICE/OUTPATIENT VISIT EST Diagnosis: Stridor[ICD10: R06.1] Diagnosis: COUGH[ICD10: R05] Belia Zacharynilson BRUNSON BushraMayda ANUSHKA [employer] [facility] CPT-4: 20470 05/06/2019 ([id number]) OFFICE/OUTPATIENT VISIT EST Diagnosis: Stridor[ICD10: R06.1] Diagnosis: Muscle, jerky movements (uncontrolled)[ICD10: G25.5] Belia Zacharynilson BRUNSON BushraMayda LUISER [employer] [facility] CPT-4: 53320 04/29/2019 ([id number]) OFFICE/OUTPATIENT VISIT EST Diagnosis: Upper respiratory infection[ICD10: J06.9] Diagnosis: Flank pain[ICD10: R10.9] Diagnosis: Weight gain[ICD10: R63.5] Pattie Floresjuan BRUNSON BushraMayda ZACHARY NDESudhir [employer] [facility] CPT-4: 56486 04/16/2019 ([id number]) OFFICE/OUTPATIENT VISIT EST Diagnosis: Generalized pruritus[ICD10: L29.9] Belia SALAZAR BushraMayda ZACHARYNDOTONIEL [employer] [facility] CPT-4: 24761 04/08/2019 ([id number]) OFFICE/OUTPATIENT VISIT EST Diagnosis: Acute bursitis of left shoulder[ICD10: M75.52] Diagnosis: Cervicalgia[ICD10: M54.2] Diagnosis: Chest wall pain[ICD10: R07.89] Belia BRUNSON Bushra Mayda ANUSHKA [employer] [facility] CPT-4: 38251 01/22/2019 ([id number]) OFFICE/OUTPATIENT VISIT EST Diagnosis: Abdominal pain[ICD10: R10.9] Diagnosis: Pyelonephritis[ICD10: N12] Pattie Nortonarely Shi RAND ALBERTO [employer] [facility] CPT-4: 44078 01/07/2019 ([id number]) OFFICE/OUTPATIENT VISIT EST Diagnosis: Low back pain[ICD10: M54.5] Diagnosis: Left lumbar radiculopathy[ICD10: M54.16] Diagnosis: Left flank pain[ICD10: R10.9] Diagnosis: Left lower quadrant pain[ICD10: R10.32] Diagnosis: FLU VACCINE[ICD10: Z23] Belia FR[facility]ERICK [facility] CPT-4: 70849 12/24/2018 ([id number]) OFFICE/OUTPATIENT VISIT EST Diagnosis: Migraine, unspecified, not intractable, without status migrainosus[ICD10: G43.909] Diagnosis: Fibromyalgia[ICD10: M79.7] Belia DOMINGUEZ [facility] CPT-4: 58148 11/20/2018 ([id number]) OFFICE/OUTPATIENT VISIT EST Diagnosis: Migraine, unspecified, intractable, without status migrainosus[ICD10: G43.919] Diagnosis: Acute sinusitis, unspecified[ICD10: J01.90] Pattie REID DO [facility] CPT-4: 71174 11/04/2018 ([id number]) OFFICE/OUTPATIENT VISIT EST Diagnosis: Pain in left wrist[ICD10: M25.532] Diagnosis: Other dorsalgia[ICD10: M54.89] Pattie REID DO [facility] CPT-4: 28734 09/08/2018 ([id number]) OFFICE/OUTPATIENT VISIT EST Diagnosis: Acute stress reaction[ICD10: F43.0] Diagnosis: Pruritus, unspecified[ICD10: L29.9] 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, 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] Belia REID [facility] CPT-4: 92553 08/20/2018 ([id number]) OFFICE/OUTPATIENT VISIT EST Diagnosis: Hypotension due to drugs[ICD10: I95.2] Diagnosis: Paroxysmal atrial fibrillation[ICD10: I48.0] Diagnosis: Localized edema[ICD10: R60.0] Belia REID [facility] CPT-4: 60689 06/19/2018 ([id number]) OFFICE/OUTPATIENT VISIT EST Diagnosis: Generalized hyperhidrosis[ICD10: R61] Diagnosis: Essential (primary) hypertension[ICD10: I10] Diagnosis: Supraventricular tachycardia[ICD10: I47.1] Belia REID DO [facility] CPT-4: 93337 06/09/2018 ([id number]) OFFICE/OUTPATIENT VISIT EST Diagnosis: Stridor[ICD10: R06.1] Diagnosis: Dependence on supplemental oxygen[ICD10: Z99.81] Diagnosis: Weakness[ICD10: R53.1] Diagnosis: Supraventricular tachycardia[ICD10: I47.1] Belia REID DO [facility] CPT-4: 80634 05/21/2018 ([id number]) OFFICE/OUTPATIENT VISIT EST Diagnosis: Cervical disc disorder with radiculopathy, unspecified cervical region[ICD10: M50.10] Belia REID DO [facility] CPT-4: 24988 04/16/2018 ([id number]) OFFICE/OUTPATIENT VISIT EST Diagnosis: Migraine, unspecified, intractable, without status migrainosus[ICD10: G43.919] Diagnosis: Fibromyalgia[ICD10: M79.7] Pattie DOMINGUEZ [facility] CPT-4: 69550 04/01/2018 ([id number]) NURSE/OUTPATIENT VISIT EST Diagnosis: Hematuria, unspecified[ICD10: R31.9] Diagnosis: Dysuria[ICD10: R30.0] Belia REID DO [facility] CPT-4: 03270 03/17/2018 ([id number]) OFFICE/OUTPATIENT VISIT EST Diagnosis: Erythema intertrigo[ICD10: L30.4] Diagnosis: Chronic obstructive pulmonary disease with (acute) exacerbation[ICD10: J44.1] Diagnosis: Type 2 diabetes mellitus with hyperglycemia[ICD10: E11.65] Belia REID DO [facility] CPT-4: 32455 03/06/2018 ([id number]) OFFICE/OUTPATIENT VISIT EST Diagnosis: Cervicalgia[ICD10: M54.2] Pattiemay AMBRIZ [facility] CPT-4: 23359 02/05/2018 ([id number]) OFFICE/OUTPATIENT VISIT EST Diagnosis: Candidiasis of skin and nail[ICD10: B37.2] Diagnosis: Cervicalgia[ICD10: M54.2] Pattie AMBRIZ [facility] CPT-4: 40955 01/20/2018 ([id number]) OFFICE/OUTPATIENT VISIT EST Diagnosis: Pain in thoracic spine[ICD10: M54.6] Diagnosis: Radiculopathy, thoracic region[ICD10: M54.14] Belia REID [facility] CPT-4: 21988 12/25/2017 ([id number]) OFFICE/OUTPATIENT VISIT EST Diagnosis: Pain in thoracic spine[ICD10: M54.6] Diagnosis: Other muscle spasm[ICD10: M62.838] Diagnosis: FLU VACCINE[ICD10: Z23] Diagnosis: PNEUMOCOCCAL VACCINE[ICD10: Z23] Belia [facility] CPT-4: 98487 12/17/2017 ([id number]) OFFICE/OUTPATIENT VISIT EST Diagnosis: Chronic obstructive pulmonary disease with (acute) exacerbation[ICD10: J44.1] Belia REID [facility] CPT- 4: 92505 10/30/2017 ([id number]) OFFICE/OUTPATIENT VISIT EST Diagnosis: Chronic obstructive pulmonary disease with acute lower respiratory infection[ICD10: J44.0] Diagnosis: Mild intermittent asthma with (acute) exacerbation[ICD10: J45.21] Belia REID [facility] CPT-4: 27895 10/23/2017 ([id number]) NURSE/OUTPATIENT VISIT EST Diagnosis: Migraine, unspecified, not intractable, without status migrainosus[ICD10: G43.909] Beila REID [facility] CPT - 4: 82094 08/26/2017 ([id number]) OFFICE/OUTPATIENT VISIT EST Diagnosis: Urinary tract infection, site not specified[ICD10: N39.0] Diagnosis: Encounter for screening for osteoporosis[ICD10: Z13.820] Diagnosis: Encounter for screening mammogram for malignant neoplasm of breast[ICD10: Z12.31] Diagnosis: Acute bronchitis, unspecified[ICD10: J20.9] Pattie REID DO [facility] CPT-4: 78959 07/19/2017 ([id number]) OFFICE/OUTPATIENT VISIT EST Diagnosis: Rash and other nonspecific skin eruption[ICD10: R21] Pattie REID DO [facility] CPT-4: 06503 05/29/2017 ([id number]) OFFICE/OUTPATIENT VISIT EST Diagnosis: Diarrhea, unspecified[ICD10: R19.7] Diagnosis: Tinea corporis[ICD10: B35.4] Diagnosis: Tinea cruris[ICD10: B35.6] Diagnosis: Migraine, unspecified, not intractable, without status migrainosus[ICD10: G43.909] Belia REID [employer] [facility] CPT - 4: 09963 05/07/2017 ([id number]) OFFICE/OUTPATIENT VISIT EST Diagnosis: Stridor[ICD10: R06.1] Diagnosis: Chronic obstructive pulmonary disease with (acute) exacerbation[ICD10: J44.1] Belia REID [employer] [facility] CPT- 4: 02114 03/18/2017 ([id number]) OFFICE/OUTPATIENT VISIT EST Diagnosis: Type 2 diabetes mellitus with hyperglycemia[ICD10: E11.65] Belia REID [employer] [facility] CPT-4: 65236 02/27/2017 OFFICE/OUTPATIENT VISIT EST Diagnosis: Type 2 diabetes mellitus with hyperglycemia[ICD10: E11.65] Pattie REID DO [facility] CPT-4: 38167 02/22/2017 ([id number]) OFFICE/OUTPATIENT VISIT EST Diagnosis: Urinary tract infection, site not specified[ICD10: N39.0] Diagnosis: Pneumonia, unspecified organism[ICD10: J18.9] Diagnosis: Type 2 diabetes mellitus with hyperglycemia[ICD10: E11.65] Belia REID DO [facility] CPT-4: 99138 01/23/2017 ([id number]) OFFICE/OUTPATIENT VISIT EST Diagnosis: Type 2 diabetes mellitus with hyperglycemia[ICD10: E11.65] Diagnosis: Localized edema[ICD10: R60.0] Diagnosis: PNEUMOCOCCAL VACCINE[ICD10: Z23] Diagnosis: FLU VACCINE[ICD10: Z23] Belia FREDERICK DO [facility] CPT-4: 39984 12/20/2016 OFFICE/OUTPATIENT VISIT EST Diagnosis: Pain in thoracic spine[ICD10: M54.6] Diagnosis: Low back pain[ICD10: M54.5] Diagnosis: Cervicalgia[ICD10: M54.2] Diagnosis: Cough[ICD10: R05] Celeste WaldenRenate BELIA REID [facility] CPT-4: 15989 10/08/2016 ([id number]) OFFICE/OUTPATIENT VISIT EST Diagnosis: Primary insomnia[ICD10: F51.01] Diagnosis: Migraine, unspecified, not intractable, without status migrainosus[ICD10: G43.909] Diagnosis: Type 2 diabetes mellitus with hyperglycemia[ICD10: E11.65] Belia REID [facility] CPT-4: 85854 09/19/2016 ([id number]) OFFICE/OUTPATIENT VISIT EST Diagnosis: Migraine, unspecified, not intractable, without status migrainosus[ICD10: G43.909] Diagnosis: Generalized abdominal pain[ICD10: R10.84] Diagnosis: Cough[ICD10: R05] Belia REID DO [facility] CPT-4: 88770 08/20/2016 ([id number]) OFFICE/OUTPATIENT VISIT EST Diagnosis: Chronic obstructive pulmonary disease, unspecified[ICD10: J44.9] Diagnosis: Stridor[ICD10: R06.1] Belia REID DO [facility] CPT-4: 51973 06/19/2016 ([id number]) OFFICE/OUTPATIENT VISIT EST Diagnosis: Chronic obstructive pulmonary disease, unspecified[ICD10: J44.9] Diagnosis: Personal history of urinary (tract) infections[ICD10: Z87.440] Belia REID [facility] CPT-4: 50087 06/04/2016 ([id number]) OFFICE/OUTPATIENT VISIT EST Diagnosis: Stridor[ICD10: R06.1] Diagnosis: Chronic obstructive pulmonary disease with acute lower respiratory infection[ICD10: J44.0] Diagnosis: Other specified diseases of intestine[ICD10: K63.89] Diagnosis: Cystitis, unspecified without hematuria[ICD10: N30.90] Belia REID [employer] [facility] CPT-4: 83186 05/02/2016 ([id number]) OFFICE/OUTPATIENT VISIT EST Diagnosis: Fibromyalgia[ICD10: M79.7] Diagnosis: Urinary tract infection, site not specified[ICD10: N39.0] Belia REID DO [facility] CPT-4: 30374 04/03/2016 ([id number]) OFFICE/OUTPATIENT VISIT EST Diagnosis: Unspecified asthma, uncomplicated[ICD10: J45.909] Diagnosis: Cough[ICD10: R05] Lidia REID [employer] [facility] T-4: 70717 02/29/2016 ([id number]) OFFICE/OUTPATIENT VISIT EST Diagnosis: Migraine, unspecified, intractable, without status migrainosus[ICD10: G43.919] Diagnosis: Urinary tract infection, site not specified[ICD10: N39.0] Belia REID [employer] [facility] CPT-4: 65386 02/02/2016 ([id number]) OFFICE/OUTPATIENT VISIT EST Diagnosis: Urinary tract infection, site not specified[ICD10: N39.0] Diagnosis: Unspecified abdominal pain[ICD10: R10.9] Diagnosis: Pain in thoracic spine[ICD10: M54.6] Diagnosis: Type 2 diabetes mellitus with diabetic neuropathic arthropathy[ICD10: E11.610] Belia REID [employer] [facility] CPT-4: 60674 12/05/2015 ([id number]) OFFICE/OUTPATIENT VISIT EST Diagnosis: Chronic obstructive pulmonary disease with (acute) exacerbation[ICD10: J44.1] Diagnosis: Migraine, unspecified, not intractable, without status migrainosus[ICD10: G43.909] Lidia REID [employer] [facility] CPT -4: 30393 10/26/2015 ([id number]) OFFICE/OUTPATIENT VISIT EST Diagnosis: Hematuria, unspecified[ICD10: R31.9] Diagnosis: Urinary tract infection, site not specified[ICD10: N39.0] Lidia HSUQUELINE Yuridia REID [employer] [facility] CPT-4: 71177 10/05/2015 OFFICE/OUTPATIENT VISIT EST Diagnosis: Chronic obstructive pulmonary disease, unspecified[ICD10: J44.9] Diagnosis: Muscle weakness (generalized)[ICD10: M62.81] Diagnosis: Polyneuropathy, unspecified[ICD10: G62.9] Diagnosis: Other intervertebral disc degeneration, 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] Diagnosis: Fibromyalgia[ICD10: M79.7] Belia HSUQUELINE Yuridia DOMINGUEZ [employer] [facility] CPT-4: 27285 09/15/2015 ([id number]) OFFICE/OUTPATIENT VISIT EST Diagnosis: Disorientation, unspecified[ICD10: R41.0] Diagnosis: Headache[ICD10: R51] Diagnosis: Paresthesia of skin[ICD10: R20.2] Lidia Hwang KOFFI Paredes BushraMayda ANUSHKA [employer] [facility] CPT-4: 80286 08/24/2015 ([id number]) OFFICE/OUTPATIENT VISIT EST Diagnosis: Type 2 diabetes mellitus with hyperglycemia[ICD10: E11.65] Diagnosis: Chronic obstructive pulmonary disease with acute lower respiratory infection[ICD10: J44.0] Belia Anushka CORNELLLINE BushraMayda ANUSHKA [employer] [facility] CPT-4: 04278 07/05/2015 ([id number]) OFFICE/OUTPATIENT VISIT EST Diagnosis: Mild intermittent asthma with (acute) exacerbation[ICD10: J45.21] Diagnosis: Chronic obstructive pulmonary disease, unspecified[ICD10: J44.9] Belia Anushka BELIA BushraMayda ANUSHKA [employer] [facility] CPT-4: 06488 06/06/2015 ([id number]) OFFICE/OUTPATIENT VISIT EST Diagnosis: Chronic obstructive pulmonary disease with (acute) exacerbation[ICD10: J44.1] Lidianick Hwang BELIA BushraMayda ANUSHKA [employer] [facility] CPT- 4: 85915 05/23/2015 ([id number]) OFFICE/OUTPATIENT VISIT EST Diagnosis: Type 2 diabetes mellitus with hyperglycemia[ICD10: E11.65] Diagnosis: Functional dyspepsia[ICD10: K30] Belia BRUNSON Bush[facility]Mayda [facility] CPT-4: 71378 05/05/2015 ([id number]) OFFICE/OUTPATIENT VISIT EST Diagnosis: Type 2 diabetes mellitus with hyperglycemia[ICD10: E11.65] Diagnosis: Glycosuria[ICD10: R81] Diagnosis: Urinary tract infection, site not specified[ICD10: N39.0] [facility]ia [facility] CPT-4: 52375 03/30/2015 ([id number]) OFFICE/OUTPATIENT VISIT EST Diagnosis: Generalized abdominal pain[ICD10: R10.84] Diagnosis: Diarrhea, unspecified[ICD10: R19.7] Diagnosis: Urinary tract infection, site not specified[ICD10: N39.0] Diagnosis: Gastro-esophageal reflux disease without esophagitis[ICD10: K21.9] Belia [facility] CPT-4: 46874 02/03/2015 ([id number]) OFFICE/OUTPATIENT VISIT EST Diagnosis: Other specified noninflammatory disorders of vagina[ICD10: N89.8] Diagnosis: Follicular disorder, unspecified[ICD10: L73.9] Diagnosis: Functional dyspepsia[ICD10: K30] Diagnosis: FLU VACCINE[ICD10: Z23] Belia SMITH [facility] CPT-4: 63709 12/29/2014 ([id number]) OFFICE/OUTPATIENT VISIT EST 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] Diagnosis: RESTLESS LEGS SYNDROME[ICD9: 333.94] Diagnosis: MIGRAINE NOS/NOT INTRCBL[ICD9: 346.90] Belia Zacharybeckyotoinel Shi [facility] CPT-4: 55571 09/02/2014 ([id number]) OFFICE/OUTPATIENT VISIT EST Diagnosis: Cervical radiculopathy[ICD9: 723.4] Diagnosis: Cervicalgia[ICD9: 723.1] Diagnosis: Degenerative disc disease, cervical[ICD9: 722.4] 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I[ICD9: 250.00] Beliahanna [facility] CPT-4: 68549 04/01/2014 OFFICE/OUTPATIENT VISIT EST Diagnosis: Reactive airway disease[ICD9: 493.90] Belia REID DO [facility] CPT-4: 25148 03/16/2014 ([id number]) OFFICE/OUTPATIENT VISIT EST Diagnosis: BRONCHITIS, ACUTE[ICD9: 466.0] Diagnosis: Reactive airway disease[ICD9: 493.90] Belia REID DO [facility] CPT-4: 74936 03/09/2014 OFFICE/OUTPATIENT VISIT EST Diagnosis: BRONCHITIS, ACUTE[ICD9: 466.0] Diagnosis: WHEEZING[ICD9: 786.07] Huong Peguero [facility] CPT-4: 14813 03/03/2014 OFFICE/OUTPATIENT VISIT EST Diagnosis: BRONCHITIS, ACUTE[ICD9: 466.0] Diagnosis: WHEEZING[ICD9: 786.07] Huong Peguero [facility] CPT-4: 18614 03/01/2014 ([id number]) OFFICE/OUTPATIENT VISIT EST Diagnosis: GERD[ICD9: 530.81] Diagnosis: ARTHRALGIA-MULTIPLE SITES[ICD9: 719.49] Diagnosis: LUMB/LUMBOSAC DISC DEGEN[ICD9: 722.52] Diagnosis: - I - FIBROMYALGIA[ICD9: 729.1] Belia CORNELLLINE BushraMayda ANUSHKA [facility] CPT-4: 94632 02/09/2014 ([id number]) OFFICE/OUTPATIENT VISIT EST Diagnosis: Peptic ulcer disease[ICD9: 533.90] Diagnosis: RESTLESS LEGS SYNDROME[ICD9: 333.94] Diagnosis: Neuropathy[ICD9: 355.9] Belia Zacharynilson HSUBELIA Yuridia FREDERICK [facility] CPT-4: 01350 12/23/2013 ([id number]) OFFICE/OUTPATIENT VISIT EST Diagnosis: URINARY TRACT INFECTION[ICD9: 599.0] Beliahanna ARNOLD BushraMayda ANUSHKA [facility] CPT-4: 63429 10/30/2013 ([id number]) OFFICE/OUTPATIENT VISIT EST Diagnosis: Flank pain[ICD9: 789.00] Belia BRUNSON BushraMayda KIESHA VIRGILIO [facility] CPT-4: 14680 10/21/2013 ([id number]) OFFICE/OUTPATIENT VISIT EST Diagnosis: INFLAMED SEBORR KERATOS[ICD9: 702.11] Diagnosis: Brachioradial pruritus[ICD9: 698.9] Diagnosis: ASTHMA NOS[ICD9: 493.90] Belia BRUNSON BushraMayda KIESHA [facility] CPT-4: 42928 10/05/2013 ([id number]) OFFICE/OUTPATIENT VISIT EST Diagnosis: HYPERTENSION[ICD9: 401.9] Diagnosis: - I - FIBROMYALGIA[ICD9: 729.1] Diagnosis: DIZZINESS/VERTIGO[ICD9: 780.4] Diagnosis: MIGRAINE NOS/NOT INTRCBL[ICD9: 346.90] Diagnosis: Diabetic peripheral neuropathy[ICD9: 250.60] Diagnosis: Flank pain[ICD9: 789.00] Belia Shi KIESHA [facility] CPT-4: 97877 08/04/2013 ([id number]) OFFICE/OUTPATIENT VISIT EST Diagnosis: ALLERGIC RHINITIS[ICD9: 477.9] Belia Ohara [facility] CPT-4: 34959 07/13/2013 OFFICE/OUTPATIENT VISIT EST Diagnosis: URINARY TRACT INFECTION[ICD9: 599.0] [facility] 82468 07/03/2013 OFFICE/OUTPATIENT VISIT EST Diagnosis: HYPERTENSION[ICD9: 401.9] Diagnosis: URINARY TRACT INFECTION[ICD9: 599.0] Diagnosis: BACKACHE[ICD9: 724.5] Diagnosis: URINARY INCONTINENCE[ICD9: 788.30] Huong Shi [facility] CPT-4: 35906 05/27/2013 ([id number]) OFFICE/OUTPATIENT VISIT EST Diagnosis: Flank pain[ICD9: 789.00] Belia BRUNSON BushraMayda KIESHA [facility] CPT-4: 73044 05/25/2013 ([id number]) OFFICE/OUTPATIENT VISIT EST Diagnosis: B-COMPLEX DEFIC NEC[ICD9: 266.2] [facility]: 22035 05/04/2013 ([id number]) OFFICE/OUTPATIENT VISIT EST Diagnosis: ALLERGIC RHINITIS[ICD9: 477.9] Diagnosis: Vitamin B12 deficiency[ICD9: 266.2] Belia Humphriesnilson ARACELISROBERTOFelicita DONNA Yuridia REID [facility] CPT-4: 57941 04/17/2013 ([id number]) OFFICE/OUTPATIENT VISIT EST 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I[ICD9: 250.00] Diagnosis: URINARY TRACT INFECTION[ICD9: 599.0] Diagnosis: DIZZINESS/VERTIGO[ICD9: 780.4] Diagnosis: DIARRHEA[ICD9: 787.91] Belia Humphriesnilson BRUNSON BushraMayda RALF Peguero [facility] CPT-4: 78823 04/06/2013 ([id number]) OFFICE/OUTPATIENT VISIT EST Diagnosis: URINARY TRACT INFECTION[ICD9: 599.0] Diagnosis: URINARY RETENTION[ICD9: 788.20] Belia Zacharybeckyotoniel HSUBELIA BushraMayda ANUSHKA [facility] CPT-4: 88903 11/10/2012 ([id number]) OFFICE/OUTPATIENT VISIT EST Diagnosis: TACHYCARDIA[ICD9: 785.0] Diagnosis: SYNCOPE AND COLLAPSE[ICD9: 780.2] Diagnosis: CONSCIOUSNS ALTERAT NEC[ICD9: 780.09] Belia HSUPAUL LUBNA BushraMayda ANUSHKA [facility] CPT-4: 69295 09/02/2012 OFFICE/OUTPATIENT VISIT EST Diagnosis: TACHYCARDIA[ICD9: 785.0] Diagnosis: SYNCOPE AND COLLAPSE[ICD9: 780.2] Beliahanna Paredes BushraMayda ANUSHKA [facility] CPT-4: 12015 08/04/2012 ([id number]) OFFICE/OUTPATIENT VISIT EST Diagnosis: Loss of consciousness[ICD9: 780.09] Diagnosis: Tachycardia[ICD9: 785.0] Diagnosis: MALAISE AND FATIGUE[ICD9: 780.79] Belia Paredes BushraMayda ANUSHKA [facility] CPT-4: 94581 07/21/2012 ([id number]) OFFICE/OUTPATIENT VISIT EST Diagnosis: BRONCHITIS, ACUTE[ICD9: 466.0] Diagnosis: ASTHMA NOS[ICD9: 493.90] Belia Shi KIESHARegino POOLE [facility] CPT-4: 58116 07/02/2012 ([id number]) OFFICE/OUTPATIENT VISIT EST Diagnosis: CEPHALGIA[ICD9: 784.0] Belia Peguero [facility] CPT-4: 20814 06/25/2012 ([id number]) OFFICE/OUTPATIENT VISIT EST Diagnosis: GERD[ICD9: 530.81] Diagnosis: DIARRHEA[ICD9: 787.91] Diagnosis: URINARY TRACT INFECTION[ICD9: 599.0] Diagnosis: ASTHMA NOS[ICD9: 493.90] Diagnosis: ALLERGIC RHINITIS[ICD9: 477.9] Belia Tomlinson Mayda ANUSHKA [employer] [facility] CPT-4: 65048 06/24/2012 ([id number]) OFFICE/OUTPATIENT VISIT EST Diagnosis: MIGRAINE NOS/NOT INTRCBL[ICD9: 346.90] Diagnosis: TREMOR NEC[ICD9: 333.1] Diagnosis: CHRONIC PAIN SYNDROME[ICD9: 338.4] Belia BASS MARIE BushraMayda ANUSHKA [employer] [facility] CPT-4: 53256 05/20/2012 ([id number]) OFFICE/OUTPATIENT VISIT EST Diagnosis: DIZZINESS/VERTIGO[ICD9: 780.4] Diagnosis: PALPITATIONS[ICD9: 785.1] Diagnosis: TREMOR NEC[ICD9: 333.1] Diagnosis: ANXIETY STATE NOS[ICD9: 300.00] Diagnosis: POSTTRAUMATIC STRESS DISORDER[ICD9: 309.81] Belia CORNELLLINE BushraMayda ANUSHKA [facility] CPT-4: 53167 05/08/2012 ([id number]) OFFICE/OUTPATIENT VISIT EST Diagnosis: MIGRAINE NOS/NOT INTRCBL[ICD9: 346.90] Diagnosis: FIBROMYALGIA[ICD9: 729.1] Diagnosis: SYNCOPE AND COLLAPSE[ICD9: 780.2] Diagnosis: Diabetic peripheral neuropathy[ICD9: 250.60] Belia CORNELLLINE BushraMayda ANUSHKA [employer] [facility] CPT-4: 02026 04/22/2012 OFFICE/OUTPATIENT VISIT EST Diagnosis: ROTATOR CUFF DIS NEC[ICD9: 726.19] Diagnosis: JOINT PAIN-SHLDER[ICD9: 719.41] Diagnosis: DYSPEPSIA[ICD9: 536.8] Belializ Reid BELIA BushraMayda RALF Peguero [employer] [facility] CPT-4: 69119 02/13/2012 ([id number]) OFFICE/OUTPATIENT VISIT EST Diagnosis: MIGRAINE NOS/NOT INTRCBL[ICD9: 346.90] Diagnosis: GERD[ICD9: 530.81] Diagnosis: DYSPEPSIA[ICD9: 536.8] Belia Peguero [facility] CPT-4: 24148 01/28/2012 OFFICE/OUTPATIENT VISIT EST Diagnosis: CEPHALGIA[ICD9: 784.0] Diagnosis: MIGRAINE NOS/NOT INTRCBL[ICD9: 346.90] Diagnosis: GERD[ICD9: 530.81] Diagnosis: INSOMNIA NOS[ICD9: 780.52] Belia CORNELLLINE Yuridia DOMINGUEZ [facility] CPT-4: 12312 12/26/2011 ([id number]) OFFICE/OUTPATIENT VISIT EST Diagnosis: CEPHALGIA[ICD9: 784.0] Diagnosis: MIGRAINE NOS/NOT INTRCBL[ICD9: 346.90] Diagnosis: MALAISE AND FATIGUE[ICD9: 780.79] Diagnosis: FIBROMYALGIA[ICD9: 729.1] Diagnosis: ALLERGIC RHINITIS[ICD9: 477.9] Belia CORNELLLINE Bushra Mayda ANUSHKA [facility] CPT-4: 89739 11/14/2011 ([id number]) OFFICE/OUTPATIENT VISIT EST Diagnosis: MALAISE AND FATIGUE[ICD9: 780.79] Diagnosis: MUSCLE WEAKNESS-GENERAL[ICD9: 728.87] Diagnosis: MIGRAINE NOS/NOT INTRCBL[ICD9: 346.90] Diagnosis: JOINT PAIN-SHLDER[ICD9: 719.41] Belia Anushka CORNELLLINE BushraMayda ANUSHKA [facility] CPT-4: 72730 09/12/2011 ([id number]) OFFICE/OUTPATIENT VISIT EST Diagnosis: CONCUSSION[ICD9: 850.9] Diagnosis: Ataxia[ICD9: 781.3] Diagnosis: DIZZINESS/VERTIGO[ICD9: 780.4] Belia CORNELLLINE Bushra Mayda ANUSHKA [facility] CPT-4: 20875 08/15/2011 ([id number]) OFFICE/OUTPATIENT VISIT EST Diagnosis: THROMBOPHLEBITIS[ICD9: 451.9] Diagnosis: Subacromial bursitis[ICD9: 726.19] Diagnosis: ALLERGIC RHINITIS[ICD9: 477.9] Diagnosis: Lipoma[ICD9: 214.9] Belia REID [facility] CPT-4: 98186 08/09/2011 ([id number]) OFFICE/OUTPATIENT VISIT EST Diagnosis: THROMBOPHLEBITIS[ICD9: 451.9] Diagnosis: Arm pain[ICD9: 729.5] Diagnosis: Clostridium difficile colitis[ICD9: 008.45] Diagnosis: URINARY TRACT INFECTION[ICD9: 599.0] Belia [facility] CPT-4: 70523 07/03/2011 ([id number]) OFFICE/OUTPATIENT VISIT EST Diagnosis: ARTHRALGIA-MULTIPLE SITES[ICD9: 719.49] Diagnosis: Muscle cramp[ICD9: 729.82] Diagnosis: INSOMNIA NOS[ICD9: 780.52] Belia [facility] CPT-4: 69200 06/04/2011 OFFICE/OUTPATIENT VISIT EST Diagnosis: Headache[ICD9: 784.0] Diagnosis: Allergic rhinitis[ICD9: 477.9] Belia REID [facility] CPT-4: 21689 05/03/2011 OFFICE/OUTPATIENT VISIT EST Diagnosis: LUMB/LUMBOSAC DISC DEGEN[ICD9: 722.52] Diagnosis: MIGRAINE NOS/NOT INTRCBL[ICD9: 346.90] Diagnosis: CHRONIC PAIN SYNDROME[ICD9: 338.4] Diagnosis: RESTLESS LEGS SYNDROME[ICD9: 333.94] Belia [facility] CPT-4: 74310 04/05/2011 OFFICE/OUTPATIENT VISIT EST Diagnosis: MIGRAINE NOS/NOT INTRCBL[ICD9: 346.90] Diagnosis: GERD[ICD9: 530.81] Belia REID [facility] CPT-4: 27163 03/08/2011 OFFICE/OUTPATIENT VISIT EST Diagnosis: URINARY TRACT INFECTION[ICD9: 599.0] Diagnosis: Vertigo[ICD9: 780.4] Diagnosis: GERD[ICD9: 530.81] Belia REID [facility] CPT-4: 48569 01/24/2011 OFFICE/OUTPATIENT VISIT EST Diagnosis: Hypotension[ICD9: 458.9] Diagnosis: Syncopal episodes[ICD9: 780.2] Diagnosis: MIGRAINE NOS/NOT INTRCBL[ICD9: 346.90] Diagnosis: MALAISE AND FATIGUE[ICD9: 780.79] Belia Shi ZACHARYNDER DO [facility] CPT-4: 43356 01/02/2011 OFFICE/OUTPATIENT VISIT EST Diagnosis: Tinea cruris[ICD9: 110.3] Diagnosis: Intertrigo[ICD9: 695.89] Diagnosis: MIGRAINE NOS/NOT INTRCBL[ICD9: 346.90] Belia COKER SMayda ZACHARYNDER [facility] CPT-4: 98687 12/07/2010 OFFICE/OUTPATIENT VISIT EST Diagnosis: PALPITATIONS[ICD9: 785.1] Diagnosis: ANXIETY STATE NOS[ICD9: 300.00] Belia Shi ZACHARYNDER [facility] CPT-4: 25826 11/16/2010 OFFICE/OUTPATIENT VISIT EST Diagnosis: URINARY TRACT INFECTION[ICD9: 599.0] Diagnosis: MIGRAINE NOS/NOT INTRCBL[ICD9: 346.90] Iraida COKER SMayda ZACHARYNDER [facility] CPT-4: 03256 11/02/2010 OFFICE/OUTPATIENT VISIT EST Diagnosis: ALLERGIC RHINITIS[ICD9: 477.9] Diagnosis: ANXIETY STATE NOS[ICD9: 300.00] Belia SMITHER DO [facility] CPT-4: 22626 10/18/2010 OFFICE/OUTPATIENT VISIT EST Belia HUMPHRIES NDER DO [facility] CPT- 4: 48172 09/19/2010 OFFICE/OUTPATIENT VISIT EST Belia HUMPHRIES NDER DO [facility] CPT- 4: 56527 09/06/2010 ([id number]) OFFICE/OUTPATIENT VISIT EST Belia COKER SMayda ORENDER DO [facility] CPT-4: 86270 08/10/2010 ([id number]) OFFICE/OUTPATIENT VISIT EST Belia COKER SMayda ORENDER DO [facility] CPT-4: 96437 05/11/2010 ([id number]) OFFICE/OUTPATIENT VISIT, EST Belia [facility] CPT-4: 97545 04/06/2010 ([id number]) OFFICE/OUTPATIENT VISIT, EST Belia [facility] CPT-4: 31547 02/09/2010 ([id number]) OFFICE/OUTPATIENT VISIT, EST Belia [facility] CPT-4: 13004 01/05/2010 ([id number]) OFFICE/OUTPATIENT VISIT, EST Belia [facility] CPT-4: 75545 12/07/2009 ([id number]) OFFICE/OUTPATIENT VISIT, EST Belia [facility] CPT-4: 27380 11/08/2009 ([id number]) OFFICE/OUTPATIENT VISIT, EST Belia [facility] CPT-4: 35674 10/24/2009 ([id number]) OFFICE/OUTPATIENT VISIT, EST Belia [facility] CPT-4: 34892 07/25/2009 ([id number]) OFFICE/OUTPATIENT VISIT, EST Belia [facility] CPT-4: 71011 05/26/2009 Plan of Care Planned Activity Notes [...] R50.9 05/26/2019 App[facility]ment: [facility] [phone] [id number] [facility] 05/26/2019 Appointment: Pattie Sotomayor [address] [place], [place] [phone] US RESCHEDULED 05/18/2019 Visit Diagnosis Plan: Chronic obstructive pulmonary di sease, unspecified Discussion: Recommend pulmonary rehab Patient states she never went to pulmonary rehab due to cost as well as transportation issues Finish trelagy Stop singulair Decrease hydroxyzine to 25mg po q HS Fwup [address] scan of Chest results discussed ICD-9 : 496 ICD-10 : J44.9 05/13/2019 Appointment: Belia Reid WPtel: [address] [place], [place] [phone] Hospital Follow Up 05/13/2019 Visit Diagnosis Plan: COUGH Discussion: Check CT scan of chest ICD-9 : 786.2 ICD-10 : R05 05/06/2019 Visit Diagnosis Plan: Stridor Discussion: Add Trelagy 1 p daily Add Singulair May need to see new bariatric physician ICD-9 : 786.1 ICD-10 : R06.1 05/06/2019 Appointment: Belia Reid WPtel: [address] [place], [place] [phone] FOLLOW UP 05/06/2019 Patient Education: Singulair- [employer] C[employer]on [id number] [email or web address].Aviary/samplemd/resources/getResource/61/[email or web address] Completed 05/06/2019 Appointment: Belia Reid WPtel: [address] [place], [place] [phone] US RESCHEDULED 04/30/2019 Visit Diagnosis Plan: Stridor [...] G25.5 04/29/2019 Appointment: Belia Reid [facility]el[facility] [phone] [id number] [facility] Follow Up 04/29/2019 Patient Education: Valium- [employer] Coupon [id number] https://www.MyFuelUp/sample[employer]/resources/getResource/61/[email or web address] Completed 04/29/2019 Visit Diagnosis Plan: Flank pain [...] ICD-10 : R63.5 04/16/2019 Appointment: Pattie Sotomayor [address] [place], [place] [id number] ACUTE ILL[facility] 04/16/2019 Patient Education: cyclobenzaprine- [employer] Coupon [id number] https://www.MyFuelUp/sample[employer] and [employer]/resources/getResource/61/[email or web address] Completed 04/16/2019 Visit Diagnosis Plan: Migraine, unspecif ied, not intractable, without status migrainosus Discussion: Increase gabapentin to 600mg po BID ICD-9 : 346.90 ICD-10 : G43.909 04/08/2019 Visit Diagnosis Plan: Generalized pruritus Discussion: Hydroxyzine 25mg po TID for itching and anxiety ICD-9 : 698.9 ICD-10 : L29.9 04/08/2019 Appointment: Bel[facility] Reid [facility]el[facility] [phone] [id number] [facility] 04/08/2019 Visit Diagnosis Plan: [...] : M75.52 01/22/2019 Appointment: Belia Reid WPtel: [address] [place] [address] Follow Up 01/22/2019 Visit Diagnosis Plan: Abdominal pain Discussion: urine culture sent to assess for any infection. rocephin given in office to cover for pyelonephritis. instructed to push fluids. call office with any new or worsening symptoms. ICD-9 : 789.00 ICD-10 : R10.9 01/07/2019 Appointment: Pattie Sotomayor [address] [place] [address] ACUTE ILLNESS 01/07/2019 Visit Diagnosis Plan: Low back pain Discussion: Stat C T of abdomen/pelvis now ICD-9 : 724.2 ICD-10 : M54.5 12/24/2018 Appointment: Belia Reid WPtel: [address] [place] [address] FOLLOW UP 12/24/2018 Visit Diagnosis Plan: Migraine, [...] : M79.7 11/20/2018 Appointment: Belia Reid WPtel: [address] [place] [address] ACUTE ILLNESS 11/20/2018 Patient Education: [email or web address] Coupon [id number] [email or web address] Completed 11/20/2018 Visit Diagnosis Plan: Migraine, unspecif ied, intractable, without status migrainosus Discussion: toradol/phenergan given in o ffice (60 mg toradol, 12.5 mg phenergan). instructed to call if no improvement or worsening. instructed to follow up with dishwashing machine repairer since headaches are occurring more frequently to make sure vision is not the cause. ICD-9 : 346.91 ICD-10 : G43.919 11/04/2018 Visit Diagnosis Plan: Acute sinusitis, unspecified Dis cussion: zithromax prescribed to cover for sinus infection due to length of symptoms and clinincal s/s. ICD-9 : 461.9 ICD-10 : J01.90 11/04/2018 Appointment: Pattie Sotomayor [address] [place], [place] [id number] ACUTE ILL[facility] 11/04/2018 Appointment: Belia Reid WPtel: [phone] [facility] US CANCELED 09/24/2018 Visit Diagnosis Plan: Type 2 diabetes me llitus with diabetic neuropathy, unspecified Discussion: Retry gabapentin 300mg po q HS ICD-9 : 250.60 ICD-10 : E11.40 09/18/2018 Visit Diagnosis Plan: Vitamin D deficiency, unspecifie d Discussion: Increase Vitamin D3 to 10,000 u daily ICD-9 : 268.9 ICD-10 : E55.9 09/18/2018 Visit Diagnosis Plan: Encounter for [facility] adult medical examination without abnormal findings Discussion: [...] I10 09/18/2018 Appointment: Belia Reid WPtel: [phone] [facility] Annual Well Visit 09/18/2018 Patient Education: gabapentin- OptimizeRX Coupon [phone] [email or web address] Completed 09/18/2018 Visit Diagnosis Plan: Pain in [...] ICD-10 : M54.89 09/08/2018 Appointment: Pattie Sotomayor [address] [place] [address] ACUTE ILLNESS 09/08/2018 Patient Education: prednisone- OptimizeRX Coupon [phone] [email or web address] Completed 09/08/2018 Visit Diagnosis Plan: Pruritus, unspecified [...] E10.9 08/20/2018 Appointment: Belia Reid WPtel: [phone] ACUTE ILLNESS 08/20/2018 Patient Education: Lexapro- Optimize[employer] Coupon [id number] Completed 08/20/2018 Patient Education: hydroxyzine HCl- Optimize[employer] Coupon [id number] Completed 08/20/2018 Care Plan: MAMMOGRAM SCREENING LOINC : 2 6347-5 Pending 08/20/2018 Visit Diagnosis Plan: Paroxysmal atrial fibrillation D iscussion: Discuss eliquis need with cardiology at [facility] due to cost ICD-9 : 427.31 ICD-10 : I48.0 06/19/2018 Visit Diagnosis Plan: Hypotension due to drugs Discuss ion: Discussed decreasing cardizem dose due to low BP and edema but sees cardiology next week Follow Up: 1 months ICD-9 : 458.8 ICD-10 : I95.2 06/19/2018 Appointment: Belia Reid WPtel: [address] [place], [place] [phone] [place] FOLLOW UP 06/19/2018 Visit Diagnosis Plan: [...] : R61 06/09/2018 Appointment: Belia Reid WPtel: [address] [place], [place] [phone] [place] FOLLOW UP 06/09/2018 Care Plan: CHEST X-RAY 2VW FRONTAL&LATL LOINC : 23023-5 Pending 05/26/2018 Visit Diagnosis Plan: Supraventricular tachycardia [...] : R53.1 05/21/2018 Appointment: Belia Reid WPtel: [address] [place] [address] Hospital Follow Up 05/21/2018 Visit Diagnosis Plan: Cervical disc diso rder with radiculopathy, unspecified cervical region Discussion: Scheduled for surgery on 06/02 10/[address] Faulkner ICD-9 : 722.0 ICD-10 : M50.10 04/16/2018 Appointment: Belia Reid WPtel: [address] [place] [address] Follow Up 04/16/2018 Visit Diagnosis Plan: Fibromyalgia [...] ICD-10 : G43.919 04/01/2018 Appointment: Pattie Sotomayor [address] [place] [address] ACUTE ILLNESS 04/01/2018 Appointment: Belia Reid WPtel: [address] [place] [address] UA 03/17/2018 Visit Diagnosis Plan: Chronic obstructiv [...] : E11.65 03/06/2018 Appointment: Belia Reidtel: [phone] [facility] Hospital Follow Up 03/06/2018 Visit Diagnosis Plan: Cervicalgia Discussion: spoke wi th dr. reid about patient. increased gabapentin to bid and started on celebrex bid. tramadrol rx written out to take prn. keep scheduled appt next week for myelogram. ICD-9 : 723.1 ICD-10 : M54.2 02/05/2018 Appointment: Pattie Sotomayor [address] [place] [address] ACUTE ILLNESS 02/05/2018 Care Plan: X-RAY EXAM NECK SPINE 4/5VWS cervical LOINC : 97123-9 Pending 01/21/2018 Visit Diagnosis Plan: Candidiasis of [...] ICD-10 : M54.2 01/20/2018 Appointment: Pattie Sotomayor [address] [place] [address] ACUTE ILLNESS 01/20/2018 Visit Diagnosis Plan: Pain in thoracic spine Discussio n: Proceed with CT scan of thoracic spine Will likely need PT ICD-9 : 724.1 ICD-10 : M54.6 12/25/2017 Appointment: Belia Reid WPtel: [phone] [facility] [facility] 12/25/2017 Care Plan: CT THORAX W/O DYE LOINC : 473 66-0 Pending 12/25/2017 Visit Diagnosis Plan: Pain in thoracic spine Discussio n: Stretches Alternated heat/ice Topical aspercreme with lidocaine Flexeril Recheck 1 week Flu and Pneumovax given ICD-9 : 724.1 ICD-10 : M54.6 12/17/2017 Appointment: Belia Reid WPtel: [address] [place] [address] ACUTE ILLNESS 12/17/2017 Patient Education: Patient Medication [...] : J44.1 10/30/2017 Appointment: Belia Reid WPtel: [address] [place] [address] FOLLOW UP 10/30/2017 Patient Education: Patient Medication Summary Completed 10/30/2017 Visit Diagnosis Plan: Chronic obstructiv e pulmonary disease with acute lower respiratory infection Discussion: Continue SVNs with albuterol q4hrs Add Trelagy 1 inhalation daily Finish steroids Increase water intake Follow Up: 1 weeks ICD-9 : 496 ICD-10 : J44.0 10/23/2017 Appointment: Belia Reid WPtel: [address] [place] [address] WORK IN 10/23/2017 Patient Education: Patient Medication Summary Completed 10/23/2017 Appointment: Belia Reidtel: [address] [place] [address] NO SHOW 10/16/2017 Visit Diagnosis Plan: Confusional [...] E11.65 09/17/2017 Appointment: Belia Reid WPtel: [phone] [facility] [place] Annual Well Visit 09/17/2017 Patient Education: Patient Medication Summary Completed 09/17/2017 Appointment: Belia Reid WPtel: [phone] [facility] [place] INJECTION 08/26/2017 Patient Education: Patient Medication Summary Completed 08/26/2017 Appointment: Belia Reid WPtel: [phone] [facility] [place] CANCELED 07/31/2017 Visit Diagnosis Plan: Encounter [...] ICD-10 : J20.9 07/19/2017 Appointment: Pattie Sotomayor [address] [place] [address] ACUTE ILLNESS 07/19/2017 Patient Education: Patient Medication Summary Completed 07/19/2017 Care Plan: MAMMOGRAM SCREENING LOINC : 2 6347-5 Pending 07/19/2017 Patient Education: Patient Medication Summary Completed 06/05/2017 Care Plan: LIPID PANEL LOINC : 52454-5 Pending 06/05/2017 Care Plan: A1C HPLC LOINC : 54551-3 Pending 06/05/2017 Visit Diagnosis Plan: Rash and [...] ICD-10 : R21 05/29/2017 Appointment: Pattie Sotomayor [address] [place] [address] FOLLOW UP 05/29/2017 Patient Education: Patient Medication Summary Completed 05/29/2017 Visit Diagnosis Plan: Tinea corporis Discussion: Diflu can and topical nystatin Follow Up: 2 weeks ICD-9 : 110.5 ICD-10 : B35.4 05/07/2017 Visit Diagnosis Plan: Diarrhea, unspecified Discussion : Diflucan Cholestyramine Recheck 2weeks ICD-9 : 787.91 ICD-10 : R19.7 05/07/2017 Appointment: Belia Reid WPtel: [address] [place] [address] FOLLOW UP 05/07/2017 Patient Education: Patient Medication Summary Completed 05/07/2017 Appointment: Belia Reid WPtel: [address] [place] [address] [place] RESCHEDULED 04/30/2017 Visit Diagnosis Plan: Chronic obstructiv e pulmonary disease with (acute) exacerbation Discussion: Finish prednisone Continue S VNS with albuterol ICD-9 : 491.21 ICD-10 : J44.1 03/18/2017 Visit Diagnosis Plan: Stridor Discussion: Increase Ati van 0.5mg po to TID routinely for next week then can go back to prn ICD-9 : 786.1 ICD-10 : R06.1 03/18/2017 Appointment: Belia Reid WPtel: [address] [place] [address] ER Follow UP 03/18/2017 Patient Education: Patient [...] E11.65 02/27/2017 Appointment: Belia Reid WPtel: [phone] [place] [id number] FOLLOW UP 02/27/2017 Patient Education: Patient Medication [...] ICD-10 : E11.65 02/22/2017 Appointment: Pattie Sotomayor [address] [place] [address] ACUTE ILLNESS 02/22/2017 Patient Education: Patient Medication [...] 01/23/2017 Appointment: Belia Reid WPtel: [phone] [facility] ER Follow UP 01/23/2017 Patient Education: Patient Medication Summary Completed 01/23/2017 Appointment: Pattie Sotomayor 504 [facility] CANCELED 01/17/2017 Appointment: Pattie Sotomayor 504 [facility] Annual Well Visit 01/14/2017 Visit Diagnosis Plan: Type 2 diabetes mellitus with hy perglycemia Discussion: Check CMP, HbA1C Flu shot and Prevnar 13 given Follow Up: 3 months ICD-9 : 250.02 ICD-10 : E11.65 12/20/2016 Visit Diagnosis Plan: Localized edema Discussion: Low Na diet Compression socks/Elevate feet ICD-9 : 782.3 ICD-10 : R60.0 12/20/2016 Appointment: Belia Reidtel: [phone] [facility]6[address] FOLLOW UP 12/20/2016 Patient Education: Patient Medication Summary Completed 12/20/2016 Patient Education: Patient Medication Summary Completed 10/10/2016 Visit Plan: Xrays of cervical, thoracic and lumbar spine at [facility] for Mobic (stop NSAIDS except Tylenol) and Flexeril UA sent for C&S Using SVN Call in 2-3 days if pain not improved or any worsening 10/08/2016 Appointment: Celeste Ferreira WPtel: [phone] [facility]66[facility] ACUTE ILLNESS 10/08/2016 Patient Education: Patient Medication [...] ICD-10 : E11.65 09/19/2016 Appointment: Belia Reidl: [address] [place], [place] [id number] 09/18 confirmed`sl FOLLOW UP 09/19/2016 Patient Education: [...] : R10.84 08/20/2016 Appointment: Belia Reid WPtel: [address] [place], [place] [id number] 08/16 confirmed~sl FOLLOW UP 08/20/2016 Patient Education: [...] : J44.9 06/19/2016 Appointment: Belia Reid WPtel: [address] [place], [place] [id number] 06/18 confirmed ~ Hospital Follow Up 06/19/2016 [...] : Z87.440 06/04/2016 Appointment: Belia Reid WPtel: [address] [place], [place] [phone] 06/01 confirmed~ FOLLOW UP 06/04/2016 Patient Education: [...] : R06.1 05/02/2016 Appointment: Belia Reid WPtel: [address] [place] [address] 05/01 confirmed ~ Hospital Follow Up 05/02/2016 [...] : N39.0 04/03/2016 Appointment: Belia Reid WPtel: [address] [place], [place] [phone] 04/02 confirmed~ Hospital Follow Up 04/03/2016 Patient Education: Patient Medication Summary Completed 04/03/2016 Visit Plan: Lungs are clear Her symptoms and exam are all upper airway restriction/constriction Can try supportive care Rx as above Follow up PRN 02/29/2016 Appointment: Lidia Hwang [address] [place], [place] [id number] ACUTE ILLNESS 02/29/2016 Patient Education: Patient Medication Summary Completed 02/29/2016 Visit Plan: Toradol/Phenergan today for Migraine Change to Clindamycin to cover lactobacillus for UTI Cover with flagyl due to hx of C. Diff 02/02/2016 Appointment: Belia Reid WPtel: [address] [place], [place] [phone] 01/31 confirmed`sl ACUTE ILLNESS 02/02/2016 Patient Education: Patient Medication Summary Completed 02/02/2016 Visit Plan: Increase neurontin to 300mg q AM and 600mg q PM Discussed neurology re-evaluation Flu shot given Need to check on Pneumonia shot Rx written out for albuterol 01/05/2016 Appointment: Belia Reid WPtel: [address] [place] [address] 01/03 confirmed ~sl Annual Well Visit 01/05/2016 Patient Education: Patient Medication Summary Completed 01/05/2016 Visit Plan: Cipro Culture urine hydrate Flexeril refilled Alternate heat and ice for back Increase gabapentin to 300mg po BID Notify if worsens 12/05/2015 Appointment: Belia Reid WPtel: [address] [place], [place] [phone] 11/30 confirmed~sl ACUTE ILLNESS 12/05/2015 Patient Education: Patient Medication Summary Completed 12/05/2015 Patient Education: Patient Medication Summary Completed 10/27/2015 Care Plan: COMPREH[place] : 55408-1 Pending 10/27/2015 Care Plan: A1C HPLC LOINC : 15324-0 Pending 10/27/2015 Visit Plan: Lungs are CTA today and is f eeling improved overall Finish meds as ordered Continue inhalers and neb treatments Discussed migraine treatment options She does not feel she needs anything additional added today Refill of Januvia sent since no samples are available today 10/26/2015 Appointment: Lidia Hwang [address] [place], [place] [id number] Hospital Follow Up 10/26/2015 Appointment: Lidia Hwang [address] [place], [place] [address] [place] CANCELED 10/26/2015 Patient Education: Patient Medication Summary Completed 10/26/2015 Patient Education: Natalia Shin 18+ - KENNETH - No [place] Completed 10/26/2015 Visit Plan: Office dip still abnormal Cu lture pending Switch to cipro - stop macrobid Push fluids - avoid caffeine Will call with culture results when available Follow up if worsening 10/05/2015 Appointment: Lidia Hwang 2305 [facility]6[address] ER Follow UP 10/05/2015 Patient Education: Patient Medication Summary Completed 10/05/2015 Visit Plan: Proceed with PT for document ation of ROM and strength of all extremities Proceed with Power Mobility Device Trial of neurontin 300mg q HS--lyrica helped but patient unable to afford Recheck 1month 09/15/2015 Appointment: Belia Reid WPtel: [address] [place], [place] [phone] 09/13 confirmed~sl SPECIAL 09/15/2015 Patient Education: Patient Medication Summary Completed 09/15/2015 Visit Plan: Fille out Loan Discharge Pap erwork for total and permanent disability 08/25/2015 Patient Education: Patient Medication Summary Completed 08/25/2015 Visit Plan: Discussed with Dr Anushka Haywood at [facility] of head 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5 [facility] 07/03 confirmed ~sl FOLLOW UP 07/05/2015 Patient Education: Patient Medication Summary Completed 07/05/2015 Visit Plan: Add Breo ellipta 100 1 p BID Continue SVNs with duoneb QID 06/06/2015 Appointment: Belia Reid WPtel: [address] [place], [place] [phone] Patient is calling for a ride, then [...] not improving 05/23/2015 Appointment: Huong Osborne WPtel: [address] [place], [place] [phone] ACUTE ILLNESS 05/23/2015 Appointment: Lidia Hwang [address] [place], [place] [phone] ER Follow UP 05/23/2015 Patient Education: Patient Medication Summary Completed 05/23/2015 Visit Plan: Check pancreatic enzymes and US of pancreas as patient can't understand why she has diabetes since has no family history Discussed weight, diet, exercise all play an important role in diabetes and are risk factors as well Continue Januvia and accuchecks daily 05/05/2015 Appointment: Belia Reid WPtel: [address] [place], [place] [phone] FOLLOW UP 05/05/2015 Patient Education: Patient Medication Summary Completed 05/05/2015 Care Plan: US EXAM ABDOM COMPLETE LOINC : 04323-5 Ordered 05/05/2015 Visit Plan: Start Januvia 100mg daily [place] with diflucan and culture urine Accuchecks daily alternating times Recheck 6weeks 03/30/2015 Appointment: Belia Reid WPtel: [address] [place], [place] [phone] 03/29 confirmed~lb FOLLOW UP 03/30/2015 Patient Education: Patient Medication Summary Completed 03/30/2015 Appointment: Belia Reid WPtel: [address] [place] [address] 03/01 needs reschedule due to payment and insurance ~sl FOLLOW UP 03/02/2015 Visit Plan: Patient was just in ER last night so has not filled scripts yet Start Carafate and Flagyl and Cipro Add Hyophen 1 po BID Recheck 1mo 02/03/2015 Appointment: Belia Reid WPtel: [address] [place] [address] 02/02lm ~sl...02/03/15 appt confirmed cn ACUTE I LLNESS 02/03/2015 Patient Education: Patient Medication Summary Completed 02/03/2015 Visit Plan: Warm soaks to vaginal area K elex and Diflucan and observe Zofran to use prn 12/29/2014 Appointment: Belia Reid WPtel: [address] [place], [place] [phone] 12/28 Confirmed ~sl ACUTE ILLNESS 12/29/2014 Patient Education: Patient Medication Summary Completed 12/29/2014 Appointment: Huong Osborne WPtel: [address] [place] [address] FOLLOW UP 09/24/2014 Appointment: Belia Reid WPtel: [address] [place], [place] [phone] 09/15 confirmed -mf FOLLOW UP 09/16/2014 Visit Plan: Increase requip to 2mg po BI D Increase lyrica to 225mg total a day by adding an extra 75mg in AM Recheck in 2weeks Continue to patch left eye while sleeping 09/02/2014 Appointment: Belia Reid WPtel: [address] [place], [place] [phone] [place] 09/01 appt confirmed cn Hospital Follow Up 09/02 Patient Education: Patient Medication Summary Completed 09/02/2014 Visit Plan: To [facility] for observat ion to R/O CVA 08/25/2014 Appointment: Huong Osborne WPtel: [address] [place], [place] [phone] ACUTE ILLNESS 08/25/2014 Patient Education: Patient Medication Summary Completed 08/25/2014 Referral: Aaron Jonas WPtel: [facility] [place] [phone] [facility], [address] [place] In Agenda location Initiated 04/26/2014 Referral: Brian Srinivasan WPtel: [place] [id number] Referral Initiated 04/20/2014 Appointment: Belia Reid WPtel: [address] [place], [place] [phone] ER Follow UP 04/01/2014 Patient Education: Patient Medication Summary Completed 04/01/2014 Care Plan: MYELOGRAPHY NECK SPINE LOINC : 10167-3 Ordered 04/01/2014 Visit Plan: Continue Symbicort 160 at 2p BID Continue SVNs with duoneb at least QID Finish Levaquin Recheck 1mo on lyrica 03/16/2014 Appointment: Belia Reid WPtel: [address] [place], [place] [phone] 03/15 voicemail FOLLOW UP 03/16/2014 Patient Education: Patient Medication Summary Completed 03/16/2014 Visit Plan: Restart SVNs with duoneb QID Repeat prednisone Levaquin Continue symbicort Keep lyrica at same dose Recheck 1week 03/09/2014 Appointment: Belia Reid WPtel: [address] [place], [place] [phone] FOLLOW UP 03/09/2014 Patient Education: Patient Medication Summary Completed 03/09/2014 Appointment: Belia Reid WPtel: [address] [place], [place] [phone] 03/03 showed up 15 minutes late for appt -- put her on Huong's side for 10:45am FORGIVEN PER DR FOLLOW UP 03/03/2014 Appointment: Huong Osborne WPtel: [address] [place], [place] [phone] FOLLOW UP 03/03/2014 Patient Education: Patient Medication Summary Completed 03/03/2014 Appointment: Huong Osborne WPtel: [address] [place], [place] [phone] ER Follow UP 03/01/2014 Patient Education: Patient Medication Summary Completed 03/01/2014 Visit Plan: Add carafate for this next m onth Increase lyrica to 150mg q HS 02/09/2014 Appointment: Belia Reid WPtel: [address] [place], [place] [phone] [place] [address] Follow Up 02/09/2014 Patient Education: Patient Medication Summary Completed 02/09/2014 Visit Plan: Increase omeprazole back to 40mg po BID Use requip in AM and add lyrica 75mg q HS Recheck 1mo 12/23/2013 Appointment: Belia Reid WPtel: [address] [place], [place] [phone] FOLLOW UP 12/23/2013 Patient Education: Patient Medication Summary Completed 12/23/2013 Patient Education: Patient Medication Summary Completed 12/04/2013 Appointment: Belia Reid WPtel: [address] [place], [place] [phone] [facility] 10/30/2013 Patient Education: Patient Medication Summary Completed 10/30/2013 Appointment: Belia Reid WPtel: [address] [place], [place] [phone] [place] [address] 10/21/2013 Patient Education: Patient Medication Summary Completed 10/21/2013 Visit Plan: Cryotherapy as above TAC and hydroxyzine to use prn to itching spots and itching SKs Add Advair HFA 115/21 1 p BID 10/05/2013 Appointment: Belia Reid WPtel: [address] [place], [place] [phone] 10/01 pt called and confirmed ACUTE ILLNESS Patient Education: Patient Medication Summary Completed 10/05/2013 Appointment: Belia Reid WPtel: [address] [place], [place] [phone] [place] will pay copay and part of past balance FOLLOW U P 08/04/2013 Patient Education: Patient Medication Summary Completed 08/04/2013 Appointment: Belia Reid WPtel: [address] [place], [place] [phone] [place] INJECTION 07/13/2013 Patient Education: Patient Medication Summary Completed 07/13/2013 Appointment: Huong Osborne WPtel: [address] [place], [place] [phone] [place] ACUTE ILLNESS 07/03/2013 Patient Education: Patient Medication Summary Completed 07/03/2013 Visit Plan: Cipro and culture urine 05/27/2013 Appointment: Huong Osborne WPtel: [address] [place], [place] [address] 05/26 confirmed appt and notified that 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 is due at appt time FOLLOW UP 05/27/2013 Patient Education: Patient Medication Summary Completed 05/27/2013 Appointment: Belia Reid WPtel: [address] [place], [place] [phone] [place] UA 05/25/2013 Patient Education: Patient Medication Summary Completed 05/25/2013 Appointment: Belia Reid WPtel: [address] [place] [phone] [place] INJECTION 05/04/2013 Patient Education: Patient Medication Summary Completed 05/04/2013 Appointment: Belia Reid WPtel: [address] [place], [place] [phone] [place] INJECTION 04/17/2013 Patient Education: Patient Medication Summary Completed 04/17/2013 Appointment: Belia Reid WPtel: [address] [place], [place] [phone] [place] INJECTION 04/15/2013 Appointment: Belia Reid WPtel: [address] [place], [place] [phone] 04/02 FOLLOW UP 04/06/2013 Patient Education: Patient Medication Summary Completed 04/06/2013 Visit Plan: Obtain lab results including UA from [facility] 11/10/2012 Appointment: Belia Reid WPtel: [address] [place] [address] ER Follow UP 11/10/2012 Patient Education: Patient Medication Summary Completed 11/10/2012 Appointment: Belia Reid WPtel: [address] [place] [address] 10/30/12 patient canceled appt due to fin ances. Offered to work something out, patient declined-LB FOLLOW UP 11/05/2012 Visit Plan: Continue Bystolic at current dose Pt has fwup with Neurology on September 16 09/02/2012 Appointment: Belia Reid WPtel: [address] [place] [address] FOLLOW UP 09/02/2012 Patient Education: Patient Medication Summary Completed 09/02/2012 Visit Plan: Continue bystolic at 5mg chris ly Sees Neurology tomorrow Use oxygen at bedtime 08/04/2012 Appointment: Belia Reid WPtel: [address] [place] [address] FOLLOW UP 08/04/2012 Patient Education: Patient Medication Summary Completed 08/04/2012 Appointment: Belia Reid WPtel: [address] [place] [address] has Hospital fwup for 07/21/12. merged appointments FOLLOW UP 07/24/2012 Visit Plan: Start Bystolic 5mg daily for tachycardia Fwup with neurology for further workup Overnight O2 sat 07/21/2012 Appointment: Belia Reid WPtel: [address] [place], [place] [phone] Hospital Follow Up 07/21/2012 Patient Education: Patient Medication Summary Completed 07/21/2012 Visit Plan: SVN with Albuterol QID Add A velox 400mg daily Notify if worsens or persists 07/02/2012 Appointment: Belia Reidtel: [address] [place], [place] [phone] ACUTE ILLNESS 07/02/2012 Patient Education: Patient Medication Summary Completed 07/02/2012 Appointment: Belia Reid WPtel: [address] [place], [place] [phone] INJECTION 06/25/2012 Patient Education: Patient Medication Summary Completed 06/25/2012 Appointment: Belia Reid WPtel: [address] [place], [place] [phone] FOLLOW UP 06/24/2012 Patient Education: Patient Medication Summary Completed 06/24/2012 Appointment: Belia Reid WPtel: [address] [place], [place] [phone] 05/19 left [facility] FOLLOW UP 05/20/2012 Patient Education: Patient Medication Summary Completed 05/20/2012 Visit Plan: DC Neurontin--discussed that this may be causing some of symptoms Also discussed that stress is likely contributing factor Discussed that may be going through withdrawal from stopping pain meds cold turkey--pt states stopped meds 2wks ago do to not helping Increase Buspar to 10mg po TID 05/08/2012 Appointment: Belia Reid WPtel: [address] [place], [place] [phone] ACUTE ILLNESS 05/08/2012 Patient Education: Patient Medication Summary Completed 05/08/2012 Visit Plan: Continue current meds Contin ue lower dose on pain meds and Diazepam Still waiting on paperwork for botox for Migraines Will restart Neurontin at 600mg po q HS Pt going to stop Depakote due to can't afford 04/22/2012 Appointment: Bel[facility] Reid [facility]el[facility] [phone] [id number] [facility]21 Hospital Follow Up 04/22/2012 Patient Education: Patient Medication Summary Completed 04/22/2012 Visit Plan: Injection to shoulder as abo ve Continue current meds Has appointment with neurology on HAs in 02/13/2012 Appointment: Belia Reid WPtel: [address] [place], [place] [id number] Pt does not have $10 copay at [facility] t time - will bring it in next week. Kianna iqbal'ed this. - [place] FOLLOW UP 02/13/2012 Patient Education: Patient Medication Summary Completed 02/13/2012 Visit Plan: Proceed with headache specia list Change nexium to Protonix Phenergan to use prn Sumatriptan to use prn Pt still on Inderal 01/28/2012 Appointment: Belia Reid WPtel: [address] [place], [place] [phone] ER Follow UP 01/28/2012 Patient Education: Patient [...] for sleep 12/26/2011 Appointment: Belia Reid WPtel: [address] [place], [place] [phone] 12/24- appt. confirmed FOLLOW UP 2 Patient Education: Patient Medication Summary Completed 12/26/2011 Appointment: Belia Reid WPtel: [address] [place], [place] [phone] [place] FOLLOW UP 11/14/2011 Patient Education: Patient Medication Summary Completed 11/14/2011 Appointment: Belia Reid WPtel: [facility] [place], [place] [phone] FOLLOW UP 09/12/2011 Patient Education: Patient Medication Summary Completed 09/12/2011 Visit Plan: Supportive care Decrease Liesth catalino to 50mg q HS Decrease AM dose of Valium to 5mg q HS Use Endocet sparingly 08/15/2011 Appointment: Belia Reid WPtel: [address] [place], [place] [phone] ER Follow UP 08/15/2011 Patient Education: Patient Medication Summary Completed 08/15/2011 Appointment: Belia Reid WPtel: [address] [place], [place] [phone] [place] Spoke directly to patient yesterday and confirmed the appoin tment. ACUTE ILLNESS 08/09/2011 Patient Education: Patient Medication Summary Completed 08/09/2011 Appointment: Belia Reid WPtel: [address] [place], [place] [phone] Hospital Follow Up 07/03/2011 Patient Education: Patient Medication Summary Completed 07/03/2011 Appointment: Belia Reid WPtel: [address] [place], [place] [phone] FOLLOW UP 06/04/2011 Patient Education: Patient Medication Summary Completed 06/04/2011 Visit Plan: Pt. wants "allergy shot" but in fact wants steroid shot. Will take a break from "generic Zyrtec they are getting from [facility]" and try Singulair for 2 weeks. 05/03/2011 Appointment: Iraida Jones WPtel: [address] [place], [place] [phone] ACUTE ILLNESS 05/03/2011 Patient Education: Patient Medication Summary Completed 05/03/2011 Visit Plan: Neurontin 400mg q HS for 1we ek then 800mg q HS Decrease requip to 1mg q HS for 2wks then stop Fwup 2mos 04/05/2011 Appointment: Belia Reid WPtel: [address] [place], [place] [phone] FOLLOW UP 04/05/2011 Patient Education: Patient Medication Summary Completed 04/05/2011 Visit Plan: Trial of neurontin in 2wks C rahul current meds for stomach Pt has procedure with Dr. Ortiz next week for stone removal 03/08/2011 Appointment: Belia Reid WPtel: [address] [place], [place] [phone] Hospital Follow Up 03/08/2011 Patient Education: Patient Medication Summary Completed 03/08/2011 Appointment: Belia Reid WPtel: [address] [place], [place] [phone] FOLLOW UP 02/19/2011 Visit Plan: reports increased [...] with Flagyl 01/24/2011 Appointment: Iraida Jones WPtel: [address] [place] [address] ACUTE ILLNESS 01/24/2011 Patient Education: Patient Medication Summary Completed 01/24/2011 Appointment: Belia Reid WPtel: [address] [place], [place] [phone] FOLLOW UP 01/02/2011 Patient Education: Patient Medication Summary Completed 01/02/2011 Appointment: Belia Reid WPtel: [address] [place], [place] [phone] FOLLOW UP 12/12/2010 Appointment: Belia Reid WPtel: [address] [place], [place] [phone] ACUTE ILLNESS 12/07/2010 Patient Education: Patient Medication Summary Completed 12/07/2010 Visit Plan: Increase Buspar to 10mg po B ID 11/16/2010 Appointment: Belia Reid WPtel: [address] [place], [place] [phone] FOLLOW UP 11/16/2010 Patient Education: Patient Medication Summary Completed 11/16/2010 Appointment: Iraida Jones WPtel: [address] [place], [place] [phone] ER Follow UP 11/02/2010 Patient Education: Patient Medication Summary Completed 11/02/2010 Visit Plan: Depo-Medrol/Kenalog given fo r allergies Add BuSpar for anxiety Oxycodone one p.o. q.i.d. for number 120 refilled 10/18/2010 Appointment: Belia Reid WPtel: [address] [place] [address] FOLLOW UP 10/18/2010 Patient Education: Patient Medication Summary Completed 10/18/2010 Visit Plan: Continue current meds Discus sed epidurals for back vs PT--will proceed with epidurals to thoracolumbar region to see if helps with pain 09/19/2010 Appointment: Belia Reid WPtel: [address] [place], [place] [phone] FOLLOW UP 09/19/2010 Patient Education: Patient Medication Summary Completed 09/19/2010 Visit Plan: DC MS contin Check CT scan t horacic spine Fwup pending above results 09/06/2010 Appointment: Belia Reid WPtel: [address] [place], [place] [phone] FOLLOW UP 09/06/2010 Patient Education: Patient Medication Summary Completed 09/06/2010 Visit Plan: Continue current meds Restar t MS contin 15mg po BID and use oxycodone prn Use daily senokot-s 2 po BID 08/10/2010 Appointment: Belia Reid WPtel: [address] [place], [place] [phone] [place] FOLLOW UP 08/10/2010 Patient Education: Patient Medication Summary Completed 08/10/2010 Visit Plan: Depomedrol/Kenalog given Pt sees ENT later this month Cont current meds Mammo scheduled 05/11/2010 Appointment: Belia Reid WPtel: [address] [place], [place] [phone] FOLLOW UP 05/11/2010 Patient Education: Patient Medication Summary Completed 05/11/2010 Appointment: Belia Reid WPtel: [address] [place], [place] [phone] [place] [address] 05/04/2010 Patient Education: Patient Medication Summary Completed 05/04/2010 Visit Plan: Pt sent to lab for UA 04/28/2010 Appointment: Belia Reid WPtel: [address] [place] [address] 04/28/2010 Patient Education: Patient Medication Summary Completed 04/28/2010 Visit Plan: Check CT angiogram of chest Restart Advair Use proair prn Cont current meds Fwup with Card as schedulec 04/06/2010 Appointment: Belia Reid WPtel: [address] [place] [address] Follow Up 04/06/2010 Patient Education: Patient Medication Summary Completed 04/06/2010 Visit Plan: Paperwork filled out for pow erchair Depomedrol/kenalog given Pt sees ENT in 2wks to assess nasal obstruction problems 02/09/2010 Appointment: Belia Reid WPtel: [address] [place] [address] ESTABLISHED PATIENT 02/09/2010 Patient Education: Patient Medication Summary Completed 02/09/2010 Visit Plan: Change Elavil to Trazadone 1 50mg q HS Diflucan and nystatin for tinea cruris 01/05/2010 Appointment: Belia Reid WPtel: [address] [place] [address] FOLLOW UP 01/05/2010 Patient Education: Patient Medication Summary Completed 01/05/2010 Appointment: Belia Reid WPtel: [address] [place] [address] FOLLOW UP 12/07/2009 Patient Education: Patient Medication Summary Completed 12/07/2009 Appointment: Belia Reid WPtel: [address] [place] [address] FOLLOW UP 11/22/2009 Visit Plan: Cont current meds and await MRI results from Dr. Meadows's office and his final recommendations Will need to follow-up at later date on deviated septum 11/08/2009 Appointment: Belia Reid WPtel: [address] [place] [address] FOLLOW UP 11/08/2009 Patient Education: Patient Medication Summary Completed 11/08/2009 Visit Plan: Cont PT/OT See Neurosurgery Cont Tortoise shell brace 10/24/2009 Appointment: Belia Reid WPtel: [address] [place] [address] FOLLOW UP 10/24/2009 Patient Education: Patient Medication Summary Completed 10/24/2009 Appointment: Belia Reid WPtel: [address] [place] [address] Hospital Follow Up 10/17/2009 Appointment: Belia Reid WPtel: [address] [place] [address] ACUTE ILLNESS 07/25/2009 Patient Education: Patient Medication Summary Completed 07/25/2009 Appointment: Belia Reid WPtel: [address] [place] [address] FOLLOW UP 05/26/2009 Patient Education: Patient Medication Summary Completed 05/26/2009 Referral: Chino Balderas WPtel: [facility] [address] Referral Initiated Referral: Merry Vale WPtel: [facility] [id number] Vale will review referral and book appointment Completed Referral: Francisco Javier Yoder WPtel: [phone] [id number] Patient needs EGD insurance will not inc rease a medication unless this procedure results show a need Completed Referral: Francisco Javier Yoder WPtel: [phone] [id number] [place] Referral Historical Reference Referral: Francisco Javier Yoder WPtel: [phone] [id number] [place] Referral Initiated Instructions Comment . 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 Long discussion [...] from "generic Zyrtec they are getting from [facility]" and try Singulair for 2 weeks. . [...]
--- OUTSIDE RECORDS SUMMARY | 2019-06-23 17:51 | XMS REPORT | CCD ---
Author Author Diana Reid D.O. Organization [facility] Address [address] [place] [address] Phone Care Team Providers Care Radio Sportscaster Name Role Phone Belia Reid D.O., PP Unavailable CCM Unavailable Summary Purpose Interface Exchange Insurance Providers Payer name Policy type / Coverage type Covered green party ID Effective Begin Date Effective End Date [employer] MEDICARE Medicare Part B [id number] 2019 Unknown Family History Family History data not found Social History Social History Element Codes Description Effective Dates Tobacco history SNOMED CT: 303518003 Nonsmoker 09/13/2010 Allergies, Adverse Reactions, Alerts Substance Reaction Codes Entered Date Inactivated Date Status Eggs reaction [id number] 09/15/2015 No Inactive Date Active _ Unknown [...] Fill Instructions Vancocin 125 mg capsule RxNorm: 155222 1 Capsule(s) Oral four t imes a day 06/08/2019 06/18/2019 Active diltiazem CD 240 mg capsule,extended release 24 hr RxNorm: 8 22674 1 Capsule(s) Oral QD 05/26/2019 11/21/2019 Active omeprazole 40 mg capsule,delayed release RxNorm: 859708 1 Capsule(s) Oral two times a day 05/26/2019 11/21/2019 Active Flagyl 500 mg tablet RxNorm: 890852 1 Tablet(s) Oral three time s a day 05/26/2019 06/05/2019 Inactive Cipro 250 mg tablet RxNorm: 217683 1 Tablet(s) Oral two times a day 05/26/2019 06/02/2019 Inactive hydroxyzine HCl 25 mg tablet RxNorm: 309751 1 Tablet(s) Oral QPM for itching/aniety 05/21/2019 06/27/2019 Active metoprolol tartrate 25 mg tablet RxNorm: 583216 1 Table t(s) Oral two times a day 05/21/2019 08/19/2019 Active hydroxyzine HCl 25 mg tablet RxNorm: 895056 1 Tablet(s) Oral QPM for itching/aniety 05/13/2019 05/20/2019 Inactive Singulair 10 mg tablet RxNorm: 567902 1 Tablet(s) Oral QPM 05/06/19 20 05/12/2019 Inactive gabapentin 600 mg tablet RxNorm: 164974 1 Tablet(s) Oral QD 020 06/05/2019 Inactive Valium 5 mg tablet RxNorm: 820188 1 Tablet(s) Oral QPM for stri joao/muscle spasm 04/29/2019 05/29/2019 Inactive baclofen 10 mg tablet RxNorm: 599192 1 Tablet(s) Oral QPM for s pasm/neck pain 04/24/2019 05/23/2019 Inactive baclofen 10 mg tablet RxNorm: 078220 1 Tablet(s) Oral QPM for s pasm/neck pain 04/24/2019 04/23/2019 Inactive Novolin N NPH U-100 Insulin isophane 100 unit/mL subcu taneous susp RxNorm: 366006 23 Unit(s) Subcutaneous two times a day 04/20/2019 No Stop Date A ctive cyclobenzaprine 5 mg tablet RxNorm: 132781 1 Tablet(s) Oral three times a day as needed 04/16/2019 04/23/2019 Inactive hydroxyzine HCl 25 mg tablet RxNorm: 445708 1 Tablet(s) Oral three times a day for itching/aniety 04/08/2019 05/12/2019 Inactive gabapentin 600 mg tablet RxNorm: 644353 1 Tablet(s) Oral two ti mes a day 04/08/2019 05/05/2019 Inactive gabapentin 600 mg tablet RxNorm: 312022 1 Tablet(s) Oral two ti mes a day 04/08/2019 04/07/2019 Inactive Novolin N NPH U-100 Insulin isophane 100 unit/mL subcu taneous susp RxNorm: 105113 10 Unit(s) Subcutaneous two times a day 03/03/2019 04/19/2019 I nactive gabapentin 300 mg capsule RxNorm: 613478 1 Capsule(s) O ral every night at bedtime for neuropathy 02/26/2019 04/07/2019 Inactive gabapentin 300 mg capsule RxNorm: 432410 1 Capsule(s) O ral every night at bedtime for neuropathy 02/20/2019 02/25/2019 Inactive pramipexole 1 mg tablet RxNorm: 355162 1 Tablet(s) Oral QPM FOR RESTLESS LEGS (REPLACES REQUIP) 02/12/2019 02/07/2020 Active buspirone 5 mg tablet RxNorm: 216946 TAKE 1 TABLET THREE TIMES MILDRED Y 02/12/2019 05/12/2019 Inactive Lexapro 10 mg tablet RxNorm: 879008 TAKE 1 TABLET EVERY DAY FOR MOO D 01/31/2019 No Stop Date Active Ativan 0.5 mg tablet RxNorm: 546963 TAKE 1 TABLET BY MO UTH THREE TIMES DAILY NEEDED FOR ANXIETY 01/26/2019 04/28/2019 Inactive Ativan 0.5 mg tablet RxNorm: 842632 TAKE 1 TABLET BY MO UTH THREE TIMES DAILY NEEDED FOR ANXIETY 01/05/2019 01/05/2019 Inactive Levaquin 500 mg tablet RxNorm: 372664 1 Tablet(s) Oral QD 12/25/2018 12/24/2018 Inactive Levaquin 500 mg tablet RxNorm: 046445 1 Tablet(s) Oral QD 12/25/2018 01/04/2019 Inactive baclofen 10 mg tablet RxNorm: 971860 1 Tablet(s) Oral three maico es a day 11/20/2018 01/19/2019 Inactive Ativan 0.5 mg tablet RxNorm: 909068 TAKE 1 TABLET BY MO UTH THREE TIMES DAILY NEEDED FOR ANXIETY 11/20/2018 01/04/2019 Inactive gabapentin 300 mg capsule RxNorm: 728275 1 Capsule(s) O ral every night at bedtime for neuropathy 11/20/2018 12/20/2018 Inactive Lexapro 10 mg tablet RxNorm: 824070 1 Tablet(s) PO QD for mood 07/201801/30/2019 Inactive Zithromax Z-Lj 250 mg tablet RxNorm: 297394 Tablet(s) PO take as directed 11/04/2018 11/19/2018 Inactive Insulin Syringe 1 mL 29 gauge x 1/2" RxNorm: 2 s yringes daily with insulin Dx: E11.65 10/08/2018 No Stop Date Active gabapentin 300 mg capsule RxNorm: 025882 1 Capsule(s) PO QHS fo r neuropathy 09/18/2018 10/17/2018 Inactive cyclobenzaprine 5 mg tablet RxNorm: 750567 1 Tablet(s) PO TID a s needed 09/09/2018 09/08/2018 Inactive cyclobenzaprine 5 mg tablet RxNorm: 739435 1 Tablet(s) PO TID a s needed 09/09/2018 10/08/2018 Inactive prednisone 20 mg tablet RxNorm: 365704 1 Tablet(s) PO QD 09/08/2018 0 09/12/2018 Inactive Lantus Solostar U-100 Insulin 100 unit/mL (3 mL) subcu taneous pen RxNorm: 176662 55 Unit(s) SQ QAM 08/28/2018 11/03/2018 Inactive hydroxyzine HCl 25 mg tablet RxNorm: 119674 1 Tablet(s) PO QHS for itching 08/20/2018 05/12/2019 Inactive Lexapro 10 mg tablet RxNorm: 914621 1 Tablet(s) PO QD for mood 08/0210/18/2018 Inactive sumatriptan 100 mg tablet RxNorm: 369267 1 Tablet(s) PO at headache onset. May repeat 1 in two hours if headache remains. Max of 2 per 24 hours 04/02/2018 05/20/2018 Inactive Diflucan 150 mg tablet RxNorm: 605079 1 Tablet(s) PO QD 03/18/2018 Inactive Diflucan 150 mg tablet RxNorm: 270161 1 Tablet(s) PO QD 03/18/2018 Inactive Flagyl 500 mg tablet RxNorm: 639420 1 Tablet(s) PO TID 03/17/2018 Inactive Levaquin 500 mg tablet RxNorm: 390959 1 Tablet(s) PO QD 03/17/2018 Inactive Levaquin 500 mg tablet RxNorm: 004625 1 Tablet(s) PO QD 03/17/2018 Inactive Flagyl 500 mg tablet RxNorm: 844469 1 Tablet(s) PO TID 03/17/2018 Inactive ketoconazole 200 mg tablet RxNorm: 884975 1 Tablet(s) PO QD 019 03/19/2018 Inactive Celebrex 200 mg capsule RxNorm: 178383 1 Capsule(s) PO BID 02/06/2005/20/2018 Inactive tramadol 50 mg tablet RxNorm: 520955 1 Tablet(s) PO TID as needed 1 04/08/2017 05/20/2018 Inactive gabapentin 300 mg capsule RxNorm: 002163 1 Capsule(s) PO BID 201705/20/2018 Inactive Diflucan 150 mg tablet RxNorm: 372756 1 Tablet(s) PO QD 01/20/2018 Inactive pramipexole 1 mg tablet RxNorm: 654261 1 Tablet(s) PO Q PM FOR RESTLESS LEGS (REPLACES REQUIP) 01/08/2018 02/11/2019 Inactive cyclobenzaprine 10 mg tablet RxNorm: 425179 1 Tablet(s) PO TID as needed for muscle spasm 12/17/2017 05/20/2018 Inactive pramipexole 1 mg tablet RxNorm: 093594 TAKE 1 TABLET BY MOUTH ONCE DAILY IN THE EVENING FOR RESTLESS LEGS (REPLACES REQUIP) 12/04/2017 01/05/2018 Inac tive Amaryl 4 mg tablet RxNorm: 326077 1 Tablet(s) PO BID replaces 2mg 0 11/05/2017 12/16/2017 Inactive Singulair 10 mg tablet RxNorm: 596142 1 Tablet(s) PO QHS for al lergies/lungs 10/30/2017 12/16/2017 Inactive Diflucan 100 mg tablet RxNorm: 329259 1 Tablet(s) PO QD 10/23/2017 Inactive Ativan 0.5 mg tablet RxNorm: 616530 TAKE 1 TABLET BY MOUTH THRE E TIMES DAILY 08/30/2017 11/20/2018 Inactive buspirone 5 mg tablet RxNorm: 381456 1 Tablet(s) PO TID 07/11/2017 Inactive propranolol 60 mg tablet RxNorm: 391709 1 Tablet(s) PO BID repl aces 40mg dose 06/26/2017 12/16/2017 Inactive Amaryl 4 mg tablet RxNorm: 175538 1 Tablet(s) PO BID replaces 2mg 0 06/12/2017 11/05/2017 Inactive omeprazole 40 mg capsule,delayed release RxNorm: 750131 1 Capsule(s) PO BID TAKE ONE CAPSULE BY MOUTH TWICE DAILY 05/30/2017 11/25/2017 Inactive pramipexole 1 mg tablet RxNorm: 523945 1 Tablet(s) PO Q PM for restless legs--replaces requip 05/30/2017 11/25/2017 Inactive amitriptyline 50 mg tablet RxNorm: 880567 1 Tablet(s) PO QHS 201709/16/2017 Inactive Diflucan 100 mg tablet RxNorm: 364981 1 Tablet(s) PO BID 05/07/2017 0 05/20/2017 Inactive nystatin (bulk) 100 million unit powder RxNorm: Application TO P BID 05/07/2017 05/20/2018 Inactive cholestyramine (with sugar) 4 gram oral powder RxNorm: 043542 1 Unit Dose PO QD 05/07/2017 01/20/2018 Inactive Ativan 0.5 mg tablet RxNorm: 062185 TAKE ONE TABLET BY MOUTH TH REE TIMES DAILY 05/01/2017 09/02/2017 Inactive Trulicity 1.5 mg/0.5 mL subcutaneous pen injector RxNorm: 15 87372 1 Unit Dose SQ WEEKLY 02/22/2017 03/23/2017 Inactive doxycycline hyclate 100 mg capsule RxNorm: 2443020 1 Capsule(s) PO BID 01/23/2017 02/05/2017 Inactive Amaryl 4 mg tablet RxNorm: 076512 1 Tablet(s) PO BID replaces 2mg 1 03/25/2016 05/22/2017 Inactive magnesium oxide 400 mg capsule RxNorm: 762648 1 Capsule(s) PO QD 07/18/2017 Inactive Ativan 0.5 mg tablet RxNorm: 290522 TAKE ONE TABLET BY MOUTH TH REE TIMES DAILY 01/17/2017 05/01/2017 Inactive Amaryl 2 mg tablet RxNorm: 137235 1 Tablet(s) PO BID 12/27/201601/22 Inactive Amaryl 2 mg tablet RxNorm: 657188 1 Tablet(s) PO BID 12/26/201612/26 Inactive Ativan 0.5 mg tablet RxNorm: 989753 TAKE ONE TABLET BY MOUTH TH REE TIMES DAILY 12/05/2016 01/18/2017 Inactive pramipexole 1 mg tablet RxNorm: 386093 1 Tablet(s) PO Q PM for restless legs--replaces requip 11/26/2016 05/30/2017 Inactive Mobic 15 mg tablet RxNorm: 168014 1 Tablet(s) PO QD 10/08/20162016 Inactive cyclobenzaprine 5 mg tablet RxNorm: 699206 1/2- 1 Tablet(s) PO TID 10/08/2016 10/17/2016 Inactive Ativan 0.5 mg tablet RxNorm: 326053 1 Tablet(s) PO TID 09/20/201607/2016 Inactive amitriptyline 50 mg tablet RxNorm: 184020 1 Tablet(s) PO QHS 201605/30/2017 Inactive propranolol 60 mg tablet RxNorm: 646990 1 Tablet(s) PO BID repl aces 40mg dose 09/19/2016 06/26/2017 Inactive Ativan 0.5 mg tablet RxNorm: 916582 1 Tablet(s) PO TID 08/20/2016 Inactive omeprazole 40 mg capsule,delayed release RxNorm: 179222 1 Capsule(s) PO BID TAKE ONE CAPSULE BY MOUTH TWICE DAILY 08/20/2016 05/30/2017 Inactive amitriptyline 50 mg tablet RxNorm: 694006 1 Tablet(s) PO QHS 201609/18/2016 Inactive pramipexole 1 mg tablet RxNorm: 578758 1 Tablet(s) PO Q PM for restless legs--replaces requip 07/23/2016 11/25/2016 Inactive Amaryl 2 mg tablet RxNorm: 291684 1 Tablet(s) PO BID 07/23/201612/27 Inactive propranolol 40 mg tablet RxNorm: 243157 1 Tablet(s) PO BID 07/13/1909/18/2016 Inactive Ativan 0.5 mg tablet RxNorm: 450797 1 Tablet(s) PO QID 06/19/2016 Inactive Amaryl 2 mg tablet RxNorm: 793489 1 Tablet(s) PO BID 06/19/201607/22 Inactive Ativan 0.5 mg tablet RxNorm: 992390 1 Tablet(s) PO QID 06/19/2016 Inactive buspirone 5 mg tablet RxNorm: 103555 1 Tablet(s) PO TID 06/19/2016 Inactive Ativan 0.5 mg tablet RxNorm: 123025 1 Tablet(s) PO BID 05/24/2016 Inactive buspirone 5 mg tablet RxNorm: 136521 1 Tablet(s) PO TID 05/23/2016 Inactive Macrobid 100 mg capsule RxNorm: 334296 1 Capsule(s) PO QOD 05/03/1910/07/2016 Inactive pramipexole 1 mg tablet RxNorm: 203036 Tablet(s) 1 Tabl et(s) PO QPM for restless legs--replaces requip 04/26/2016 06/24/2016 Inactive propranolol 40 mg tablet RxNorm: 093389 TAKE ONE TABLET BY MOUT H TWICE DAILY 04/26/2016 06/24/2016 Inactive Detrol LA 4 mg capsule,extended release RxNorm: 849463 1 Capsul e(s) PO QHS 04/03/2016 05/02/2016 Inactive prednisone 20 mg tablet RxNorm: 197823 1 Tablet(s) PO QD 02/29/2016 0 03/04/2016 Inactive Actos 30 mg tablet RxNorm: 764277 TAKE ONE TABLET BY MOUTH ONCE DAILY 02/27/2016 12/19/2016 Inactive clindamycin 300 mg capsule RxNorm: 765990 1 Capsule(s) PO TID 02/0102/08/2016 Inactive Flagyl 500 mg tablet RxNorm: 231084 1 Tablet(s) PO BID 02/02/201609/2015 Inactive omeprazole 40 mg capsule,delayed release RxNorm: 472308 TAKE ONE CAPSULE BY MOUTH TWICE DAILY 01/15/2016 07/12/2016 Inactive gabapentin 300 mg capsule RxNorm: 770775 1 Capsule(s) PO QAM an d 2 po q HS 01/05/2016 06/18/2016 Inactive gabapentin 300 mg capsule RxNorm: 199320 1 Capsule(s) P O BID 1 Capsule(s) PO QHS 12/05/2015 01/04/2016 Inactive cyclobenzaprine 10 mg tablet RxNorm: 668127 1 Tablet(s) PO TID for spasm as needed for muscle spasm 12/05/2015 06/18/2016 Inactive ciprofloxacin 250 mg tablet RxNorm: 675627 1 Tablet(s) PO BID 12/0412/14/2015 Inactive pramipexole 1 mg tablet RxNorm: 761173 Tablet(s) 1 Tabl et(s) PO QPM for restless legs--replaces requip 11/07/2015 11/26/2016 Inactive Januvia 100 mg tablet RxNorm: 944132 1 Tablet(s) PO QD 10/26/201504/2015 Inactive propranolol 40 mg tablet RxNorm: 052682 TAKE ONE TABLET BY MOUT H TWICE DAILY 10/25/2015 04/21/2016 Inactive gabapentin 300 mg capsule RxNorm: 088047 1 Capsule(s) PO QHS 201512/04/2015 Inactive Cipro 500 mg tablet RxNorm: 363354 1 Tablet(s) PO BID 10/05/201511/2015 Inactive pramipexole 1 mg tablet RxNorm: 811627 Tablet(s) 1 Tabl et(s) PO QPM for restless legs--replaces requip 10/04/2015 11/02/2015 Inactive propranolol 40 mg tablet RxNorm: 084930 TAKE ONE TABLET BY MOUT H TWICE DAILY 09/26/2015 10/24/2015 Inactive Amaryl 2 mg tablet RxNorm: 932401 1 Tablet(s) PO QD 09/15/20152016 Inactive gabapentin 300 mg capsule RxNorm: 051663 1 Capsule(s) PO QHS 201510/14/2015 Inactive buspirone 5 mg tablet RxNorm: 507479 1 Tablet(s) PO TID 09/15/2015 Inactive pramipexole 1 mg tablet RxNorm: 743942 Tablet(s) 1 Tabl et(s) PO QPM for restless legs--replaces requip 09/08/2015 10/03/2015 Inactive pramipexole 1 mg tablet RxNorm: 892296 1 Tablet(s) PO Q PM for restless legs--replaces requip 08/08/2015 09/08/2015 Inactive Amaryl 2 mg tablet RxNorm: 790030 1 Tablet(s) PO QD 07/07/20152015 Inactive pramipexole 1 mg tablet RxNorm: 490734 1 Tablet(s) PO Q PM for restless legs--replaces requip 07/05/2015 08/03/2015 Inactive ropinirole 2 mg tablet RxNorm: 704691 TAKE ONE TABLET BY MOUTH TWICE DAILY 05/09/2015 09/14/2015 Inactive Diflucan 100 mg tablet RxNorm: 933135 1 Tablet(s) PO QD 03/30/2015 Inactive propranolol 40 mg tablet RxNorm: 402782 1 Tablet(s) PO BID 02/24/20 15 08/21/2015 Inactive [SAVINGS FOR UNINSURED PATIE NTS -- BIN:218852, PCN: ASPROD1, Group: AME08, ID# [id number], Process claim through [employer], for questions: . THIS IS NOT INSURANCE.] Flagyl 500 mg tablet RxNorm: 901516 1 Tablet(s) PO BID 02/03/201502/2015 Inactive Cipro 500 mg tablet RxNorm: 603650 1 Tablet(s) PO BID 02/03/201502/01 Inactive Carafate 1 gram tablet RxNorm: 711897 1 Tablet(s) PO QID make i nto slurry 02/03/2015 09/14/2015 Inactive ondansetron HCl 4 mg tablet RxNorm: 518762 1 Tablet(s) PO Q4H as needed for nausea 12/29/2014 01/04/2016 Inactive Diflucan 100 mg tablet RxNorm: 708854 1 Tablet(s) PO QD 12/29/2014 Inactive Keflex 500 mg capsule RxNorm: 543336 1 Capsule(s) PO TID 12/29/2014 1 03/09/2014 Inactive omeprazole 40 mg capsule,delayed release RxNorm: 706631 1 Capsu le(s) PO BID 12/27/2014 12/21/2015 Inactive [SAVINGS FOR UNINSUR ED PATIENTS -- BIN:607595, PCN: ASPROD1, Group: AME08, ID# [id number], Process claim through [employer]Imp[employer], for questions: . THIS IS NOT INSURANCE.] ropinirole 2 mg tablet RxNorm: 452394 1 Tablet(s) PO BID 09/29/2014 0 03/27/2015 Inactive [SAVINGS FOR UNINSURED PATIENTS -- BIN:0 68530, PCN: ASPROD1, Group: AME08, ID# [id number], Process claim through [employer]Imp[employer], for questions: . THIS IS NOT INSURANCE.] buspirone 5 mg tablet RxNorm: 388408 1 Tablet(s) PO TID 09/17/2014 Inactive ropinirole 2 mg tablet RxNorm: 051650 1 Tablet(s) PO BID 09/02/2014 0 09/28/2014 Inactive [SAVINGS FOR UNINSURED PATIENTS -- BIN:0 22069, PCN: ASPROD1, Group: AME08, ID# [id number], Process claim through [employer]Imp[employer], for questions: . THIS IS NOT INSURANCE.] Zyrtec 10 mg tablet RxNorm: 8702795 1 Tablet(s) PO QD 09/02/201412/02 Inactive propranolol 40 mg tablet RxNorm: 937402 1 Tablet(s) PO BID 07/21/19 15 02/23/2015 Inactive [SAVINGS FOR UNINSURED PATIE NTS -- BIN:031202, PCN: ASPROD1, Group: AME08, ID# [id number], Process claim through [employer]Imp[employer], for questions: . THIS IS NOT INSURANCE.] ropinirole 2 mg tablet RxNorm: 380952 1 Tablet(s) PO QHS 05/14/2014 0 09/01/2014 Inactive [SAVINGS FOR UNINSURED PATIENTS -- BIN:0 81467, PCN: ASPROD1, Group: AME08, ID# [id number], Process claim through [employer]Imp[employer], for questions: . THIS IS NOT INSURANCE.] cyclobenzaprine 10 mg tablet RxNorm: 756457 1 Tablet(s) PO QHS for spasm 04/06/2014 09/01/2014 Inactive ipratropium-albuterol 0.5 mg-3 mg(2.5 mg base)/3 mL ne bulization soln RxNorm: 1663588 1 Unit Dose INH Q4H 03/16/2014 No Stop Date Active [SAVINGS FOR UNINSURED PATIENTS -- BIN:634055, PCN: ASPROD1, Group: AME08, ID# [id number], Process claim through [employer]Imp[employer], for questions: . THIS IS NOT INSURANCE.] prednisone 20 mg tablet RxNorm: 086922 1 Tablet(s) PO BID 03/09/2014 03/15/2014 Inactive [SAVINGS FOR UNINSURED PATIENTS -- BIN:0 49558, PCN: ASPROD1, Group: AME08, ID# [id number], Process claim through [employer], for questions: . THIS IS NOT INSURANCE.] ipratropium-albuterol 0.5 mg-3 mg(2.5 mg base)/3 mL ne bulization soln RxNorm: 9505474 1 Unit Dose INH Q4H 03/09/2014 03/15/2014 Inactive [SAVINGS FOR UNINSURED PATIENTS -- BIN:779673, PCN: ASPROD1, Group: AME08, ID# [id number], Process claim through [employer]Imp[employer], for questions: . THIS IS NOT INSURANCE.] Levaquin 500 mg tablet RxNorm: 404841 1 Tablet(s) PO QD 03/09/2014 Inactive [SAVINGS FOR UNINSURED PATIENTS -- BIN:0 85403, PCN: ASPROD1, Group: AME08, ID# [id number], Process claim through [employer]Imp[employer], for questions: . THIS IS NOT INSURANCE.] Carafate 1 gram tablet RxNorm: 705383 1 Tablet(s) PO AC & HS ma ke into slurry 02/09/2014 09/01/2014 Inactive [SAVINGS FOR UNINSUR ED PATIENTS -- BIN:231873, PCN: ASPROD1, Group: AME08, ID# [id number], Process claim through MedImp[employer], for questions: . THIS IS NOT INSURANCE.] Fioricet 50 mg-300 mg-40 mg capsule RxNorm: 9005607 1-2 Capsule(s) PO Q4H as needed for headache --max of 6 a day 02/09/2014 09/01/2014 Inactive [SAVINGS FOR UNINSURED PATIENTS -- BIN:934071, PCN: ASPROD1, Group: AME08, ID# [id number], Process claim through [employer]Imp[employer], for questions: . THIS IS NOT INSURANCE.] propranolol 40 mg tablet RxNorm: 061081 1 Tablet(s) PO BID 12/08/19 14 06/04/2014 Inactive [SAVINGS FOR UNINSURED PATIE NTS -- BIN:405881, PCN: ASPROD1, Group: AME08, ID# [id number], Process claim through [employer]Imp[employer], for questions: . THIS IS NOT INSURANCE.] buspirone 5 mg tablet RxNorm: 371343 1 Tablet(s) PO TID 12/02/2013 Inactive omeprazole 40 mg capsule,delayed release RxNorm: 173537 1 Capsu le(s) PO BID 11/25/2013 11/19/2014 Inactive [SAVINGS FOR UNINSUR ED PATIENTS -- BIN:641154, PCN: ASPROD1, Group: AME08, ID# [id number], Process claim through [employer], for questions: . THIS IS NOT INSURANCE.] ropinirole 2 mg tablet RxNorm: 482752 1 Tablet(s) PO QHS 11/10/2013 0 05/08/2014 Inactive [SAVINGS FOR UNINSURED PATIENTS -- BIN:0 96201, PCN: ASPROD1, Group: AME08, ID# [id number], Process claim through [employer]Imp[employer], for questions: . THIS IS NOT INSURANCE.] Cipro 500 mg tablet RxNorm: 126123 1 Tablet(s) PO BID 10/21/201312/03 Inactive [SAVINGS FOR UNINSURED PATIENTS -- BIN:0 61992, PCN: ASPROD1, Group: AME08, ID# [id number], Process claim through [employer]Imp[employer], for questions: . THIS IS NOT INSURANCE.] hydroxyzine HCl 25 mg tablet RxNorm: 161572 1 Tablet(s) PO Q4-6 H as needed 10/05/2013 01/04/2016 Inactive [SAVINGS FOR UNINSUR ED PATIENTS -- BIN:284567, PCN: ASPROD1, Group: AME08, ID# [id number], Process claim through MedImpact, for questions: . THIS IS NOT INSURANCE.] triamcinolone acetonide 0.1 % topical cream RxNorm: 6251674 Appl ication TOP BID 10/05/2013 09/01/2014 Inactive [SAVINGS FOR UNINSUR ED PATIENTS -- BIN:476205, PCN: ASPROD1, Group: AME08, ID# [id number], Process claim through MedImp[employer], for questions: . THIS IS NOT INSURANCE.] albuterol sulfate HFA 90 mcg/actuation aerosol inhaler RxNor m: 5304965 2 Puff(s) INH Q4H as needed for cough 10/01/2013 12/22/2013 Inactive [MAKSIM INGS FOR UNINSURED PATIENTS -- BIN:774969, PCN: ASPROD1, Group: AME08, ID# [id number], Process claim through [employer]Imp[employer], for questions: . THIS IS NOT INSURANCE.] propranolol 40 mg tablet RxNorm: 968911 1 Tablet(s) PO BID 09/02/19 14 11/29/2013 Inactive [SAVINGS FOR UNINSURED PATIE NTS -- BIN:344460, PCN: ASPROD1, Group: AME08, ID# [id number], Process claim through [employer]Imp[employer], for questions: . THIS IS NOT INSURANCE.] propranolol 40 mg tablet RxNorm: 331451 1 Tablet(s) PO BID 08/05/19 14 08/31/2013 Inactive [SAVINGS FOR UNINSURED PATIE NTS -- BIN:414450, PCN: ASPROD1, Group: AME08, ID# [id number], Process claim through [employer], for questions: . THIS IS NOT INSURANCE.] Toprol XL 50 mg tablet,extended release RxNorm: 778412 1 Tablet (s) PO QHS 07/23/2013 08/03/2013 Inactive Macrobid 100 mg capsule RxNorm: 259235 1 Capsule(s) PO BID 07/04/19 14 07/09/2013 Inactive Toprol XL 50 mg tablet,extended release RxNorm: 403164 1 Tablet (s) PO QHS 05/28/2013 06/26/2013 Inactive ciprofloxacin 500 mg tablet RxNorm: 889977 1 Tablet(s) PO BID 05/2706/02/2013 Inactive Bystolic 5 mg tablet RxNorm: 238134 1 Tablet(s) PO QD 05/27/201305/03 Inactive ropinirole 2 mg tablet RxNorm: 465214 1 Tablet(s) PO QHS 04/22/2013 0 11/09/2013 Inactive Cipro 250 mg tablet RxNorm: 150578 1 Tablet(s) PO BID 04/06/201311/2013 Inactive ropinirole 2 mg tablet RxNorm: 639141 1 Tablet(s) PO QHS 02/17/2013 0 04/21/2013 Inactive Amaryl 2 mg tablet RxNorm: 221109 1 Tablet(s) PO QAM 11/11/201211/10 Inactive Amaryl 2 mg tablet RxNorm: 534573 1 Tablet(s) PO QAM 11/11/201204/05 Inactive omeprazole 40 mg capsule,delayed release RxNorm: 566664 1 Capsu le(s) PO BID 08/14/2012 08/08/2013 Inactive Bystolic 5 mg tablet RxNorm: 880622 1 Tablet(s) PO QD 08/14/201205/03 Inactive propranolol 60 mg tablet RxNorm: 090943 Tablet(s) PO TAKE 1 TAB LET TWICE DAILY 08/01/2012 09/01/2012 Inactive Bystolic 5 mg tablet RxNorm: 000296 1 Tablet(s) PO QD 07/21/201207/02 Inactive Bystolic 5 mg tablet RxNorm: 468152 1 Tablet(s) PO QD 07/21/201207/03 Inactive Prilosec 40 mg capsule,delayed release RxNorm: 142483 1 Capsule (s) PO BID 06/24/2012 07/21/2012 Inactive buspirone 10 mg tablet RxNorm: 873626 1 Tablet(s) PO TID 05/08/2012 0 05/23/2016 Inactive Valium 10 mg tablet RxNorm: 614056 1 Tablet(s) PO BID 04/02/201207/03 Inactive Endocet 10 mg-325 mg tablet RxNorm: 6782962 1 Tablet(s) PO QID 03/0607/21/2012 Inactive as needed for severe pain Valium 10 mg tablet RxNorm: 088755 1 Tablet(s) PO BID 02/27/2012 No S top Date Active Endocet 10 mg-325 mg tablet RxNorm: 6440184 1 Tablet(s) PO QID 02/0203/27/2012 Inactive as needed for severe pain Endocet 10 mg-325 mg tablet RxNorm: 0306151 1 Tablet(s) PO QID 01/0302/26/2012 Inactive as needed for severe pain Valium 10 mg tablet RxNorm: 605385 1 Tablet(s) PO BID 01/29/2012 No S top Date Active Protonix 40 mg tablet,delayed release RxNorm: 824423 1 Tablet(s ) PO QD 01/28/2012 07/21/2012 Inactive metformin ER 500 mg tablet,extended release 24 hr RxNorm: 86 0977 1 Tablet(s) PO QD 12/26/2011 07/20/2012 Inactive Trazadone 150 mg Tablet RxNorm: 1 Tablet(s) PO QHS prn sleep 1 04/23/2012 Inactive Endocet 10 mg-325 mg tablet RxNorm: 6702563 1 Tablet(s) PO QID 12/0301/24/2012 Inactive as needed for severe pain Nexium 40 mg capsule,delayed release RxNorm: 602658 1 Capsule(s ) PO QD 12/26/2011 01/27/2012 Inactive Symbicort 160 mcg-4.5 mcg/actuation HFA Aerosol Inhaler RxNo rm: 6314646 2 Puff(s) INH BID 12/04/2011 07/21/2012 Inactive Endocet 10 mg-325 mg tablet RxNorm: 7626636 1 Tablet(s) PO QID 11/0312/25/2011 Inactive as needed for severe pain metformin ER 500 mg tablet,extended release 24 hr RxNorm: 86 0977 1 Tablet(s) PO QD 11/20/2011 12/19/2011 Inactive metformin ER 500 mg tablet,extended release 24 hr RxNorm: 86 0977 1 Tablet(s) PO QD 11/20/2011 11/19/2011 Inactive amitriptyline 100 mg tablet RxNorm: 618620 Tablet(s) PO QHS 1 a nd /2 tabs QHS 11/12/2011 11/13/2011 Inactive Valium 10 mg tablet RxNorm: 965017 1 Tablet(s) PO BID 11/09/2011 No S top Date Active Endocet 10 mg-325 mg tablet RxNorm: 4968398 1 Tablet(s) PO QID 10/0211/14/2011 Inactive as needed for severe pain Aricept 10 mg Tab RxNorm: 596234 1 Tablet(s) PO QD 10/05/2011 013 Inactive Valium 10 mg tablet RxNorm: 386461 1 Tablet(s) PO BID 10/05/2011 No S top Date Active Endocet 10 mg-325 mg Tab RxNorm: 3289968 1 Tablet(s) PO QID 012 10/09/2011 Inactive as needed for severe pain Aricept 10 mg Tab RxNorm: 826152 1 Tablet(s) PO QD 08/14/2011 012 Inactive Endocet 10 mg-325 mg Tab RxNorm: 8045344 1 Tablet(s) PO QID 012 08/31/2011 Inactive as needed for severe pain Valium 10 mg Tab RxNorm: 723572 1 Tablet(s) PO BID 08/02/2011 No Stop Date Active propranolol 60 mg tablet RxNorm: 088834 1 Tablet(s) PO BID 07/26/19 12 09/11/2011 Inactive amitriptyline 100 mg tablet RxNorm: 403374 Tablet(s) PO QHS 1 a nd 1/2 tabs QHS 06/20/2011 09/11/2011 Inactive buspirone 10 mg tablet RxNorm: 877053 1 Tablet(s) PO BID 06/18/2011 0 09/15/2011 Inactive propranolol 60 mg Tab RxNorm: 065220 1 Tablet(s) PO BID 06/18/2011 Inactive gabapentin 800 mg Tab RxNorm: 757797 1 Tablet(s) PO BID 06/18/2011 Inactive ropinirole 2 mg tablet RxNorm: 954814 1 Tablet(s) PO QHS 05/29/2011 0 08/26/2011 Inactive trimethoprim 100 mg Tab RxNorm: 827612 1 Tablet(s) PO QHS 05/29/2011 07/21/2012 Inactive Endocet 10 mg-325 mg Tab RxNorm: 6159560 1 Tablet(s) PO QID 012 2011 Inactive as needed for severe pain Valium 10 mg Tab RxNorm: 133278 1 Tablet(s) PO QHS N eed to take med as prescribed. this is a 40 day RX. No early fills. 05/17/2011 05/20/2018 Inactive propranolol 60 mg Tab RxNorm: 637215 1 Tablet(s) PO BID 04/16/2011 Inactive Neurontin 800 mg Tab RxNorm: 908837 1 Tablet(s) PO QHS 04/05/201103/2011 Inactive Endocet 10 mg-325 mg Tab RxNorm: 1978859 1 Tablet(s) PO QID 012 05/02/2011 Inactive as needed for severe pain oxycodone-acetaminophen 10 mg-325 mg tablet RxNorm: 2021412 1 Ta blet(s) PO Q4H 03/28/2011 05/19/2012 Inactive Valium 10 mg Tab RxNorm: 368419 1 Tablet(s) PO QHS 03/28/2011 012 Inactive buspirone 10 mg Tab RxNorm: 612674 1 Tablet(s) PO BID 03/27/201106/02 Inactive propranolol 60 mg Tab RxNorm: 768217 1 Tablet(s) PO BID 03/19/2011 Inactive Klor-Con M20 20 mEq Tab RxNorm: 6322251 1 Tablet(s) PO QD 03/19/2011 07/21/2012 Inactive Aricept 10 mg Tab RxNorm: 271906 1 Tablet(s) PO QD 02/27/2011 012 Inactive propranolol 60 mg Tab RxNorm: 066572 1 Tablet(s) PO BID 02/19/2011 Inactive omeprazole 40 mg capsule,delayed release RxNorm: 596080 1 Capsu le(s) PO BID 01/24/2011 05/23/2011 Inactive clindamycin 300 mg capsule RxNorm: 018829 1 Capsule(s) PO TID 01/2402/02/2011 Inactive propranolol 60 mg Tab RxNorm: 307332 1 Tablet(s) PO BID 01/22/2011 No Stop Date Active nystatin 100,000 unit/g Topical Cream RxNorm: 232805 Applicatio n TOP BID 01/15/2011 01/14/2011 Inactive to rash for 2-4 week s Diflucan 200 mg Tab RxNorm: 225825 1 Tablet(s) PO QD 01/15/201101/28 Inactive buspirone 10 mg Tab RxNorm: 376154 1 Tablet(s) PO BID 01/08/201103/05 Inactive Valium 10 mg Tab RxNorm: 155631 1 Tablet(s) PO QHS 01/05/2011 012 Inactive Diflucan 200 mg Tab RxNorm: 472221 1 Tablet(s) PO QD 01/01/201101/14 Inactive Diflucan 200 mg Tab RxNorm: 519442 1 Tablet(s) PO QD 12/18/201012/31 Inactive Valium 10 mg Tab RxNorm: 581199 1 Tablet(s) PO QHS 12/12/2010 011 Inactive Diflucan 200 mg Tab RxNorm: 707761 1 Tablet(s) PO QD 12/07/201012/18 Inactive Aricept 10 mg Tab RxNorm: 568496 1 Tablet(s) PO QD 11/20/2010 011 Inactive ropinirole 1 mg Tab RxNorm: 118698 1 Tablet(s) PO QHS 11/16/201005/03 Inactive enalapril maleate 5 mg Tab RxNorm: 811917 1 Tablet(s) PO QD 011 05/20/2018 Inactive buspirone 10 mg Tab RxNorm: 022781 1 Tablet(s) PO BID 11/16/201012/02 Inactive Valium 10 mg Tab RxNorm: 790829 1 Tablet(s) PO QHS 11/07/2010 011 Inactive Pyridium 100 mg Tab RxNorm: 1293566 1 Tablet(s) PO TID 11/02/201004/2010 Inactive Macrobid 100 mg Cap RxNorm: 6625606 1 Capsule(s) PO BID 11/02/2010 Inactive buspirone 10 mg Tab RxNorm: 873152 1 Tablet(s) PO QHS 10/18/201005/02 Inactive propranolol 60 mg Tab RxNorm: 920394 1 Tablet(s) PO BID 09/18/2010 Inactive Valium 10 mg Tab RxNorm: 724088 1 Tablet(s) PO QHS 09/05/2010 011 Inactive Aricept 10 mg Tab RxNorm: 152880 1 Tablet(s) PO QD 08/14/2010 011 Inactive Valium 10 mg Tab RxNorm: 626199 1 Tablet(s) PO QHS 06/26/2010 011 Inactive ropinirole 1 mg Tab RxNorm: 158481 1 Tablet(s) PO QHS 06/19/201010/02 Inactive omeprazole 40 mg Cap, delayed release RxNorm: 468162 1 Capsule( s) PO QD 06/07/2010 10/04/2010 Inactive Endocet 10 mg-325 mg Tab RxNorm: 5845018 1 Tablet(s) PO QID as needed for severe pain 06/07/2010 03/07/2011 Inactive Endocet 10 mg-325 mg Tab RxNorm: 0055486 1 Tablet(s) PO QID as needed for severe pain 05/04/2010 06/02/2010 Inactive Valium 10 mg Tab RxNorm: 316678 1 Tablet(s) PO QHS 05/01/2010 011 Inactive propranolol 60 mg Tab RxNorm: 738977 1 Tablet(s) PO BID 04/03/2010 Inactive Valium 10 mg Tab RxNorm: 822712 1 Tablet(s) PO QHS 03/28/2010 011 Inactive omeprazole 40 mg Cap, Delayed Release RxNorm: 105729 1 Capsule( s) PO QD 03/28/2010 06/06/2010 Inactive Endocet 10 mg-325 mg Tab RxNorm: 6516567 1 Tablet(s) PO QID prn ari n 03/27/2010 05/20/2018 Inactive Valium 10 mg Tab RxNorm: 023663 1 Tablet(s) PO QHS 02/20/2010 011 Inactive Diflucan 100 mg Tab RxNorm: 349454 1 Tablet(s) PO BID 01/23/201003/2009 Inactive Diflucan 100 mg Tab RxNorm: 670117 1 Tablet(s) PO BID 01/05/201001/02 Inactive Aricept 10 mg Tab RxNorm: 166914 1 Tablet(s) PO QD 12/01/2009 011 Inactive OxyContin 20 mg 12 hr Tab RxNorm: 6949265 1 Tablet(s) PO BID 200904/05/2010 Inactive oxycodone-acetaminophen 10 mg-325 mg Tab RxNorm: 4268152 1 Table t(s) PO Q4H 11/22/2009 11/26/2009 Inactive Phenergan 25 mg Tab RxNorm: 928737 1 Tablet(s) PO PRN MIGRAINE 11/0303/07/2011 Inactive Demerol 100 mg Tab RxNorm: 799483 1 Tablet(s) PO PRN MIGRAINE 11/2203/07/2011 Inactive Oxycodone-Acetaminophen 10 mg-325 mg Tab RxNorm: 7572459 1 Table t(s) PO Q4H 10/11/2009 10/15/2009 Inactive Percocet 10 mg-325 mg Tab RxNorm: 8875373 1 Tablet(s) PO Q4H 200910/24/2009 Inactive propranolol 60 mg Tab RxNorm: 817042 1 Tablet(s) PO BID 08/29/2009 Inactive Valium 10 mg Tab RxNorm: 130174 1 Tablet(s) PO QHS 08/16/2009 010 Inactive Keflex 500 mg Cap RxNorm: 332899 1 Capsule(s) PO BID 07/25/200907/31 Inactive Hydroxyzine 25 mg Tab RxNorm: 245256 1 Tablet(s) PO TID 07/25/2009 Inactive Prednisone 20 mg Tab RxNorm: 316858 1 Tablet(s) PO BID 07/25/2009 Inactive Demerol 100 mg Tab RxNorm: 936814 1 Tablet(s) PO PRN MIGRAINE 07/25 No Stop Date Active Ropinirole 1 mg Tab RxNorm: 438170 1 Tablet(s) PO HS 07/20/200902/14 Inactive Valium 10 mg Tab RxNorm: 966255 1 Tablet(s) PO QHS 07/18/2009 010 Inactive Endocet 10 mg-325 mg Tab RxNorm: 9609546 1 Tablet(s) PO TID 010 07/07/2009 Inactive Demerol 100 mg Tab RxNorm: 004106 1 Tablet(s) PO PRN MIGRAINE 06/08 No Stop Date Active Ropinirole 1 mg Tab RxNorm: 315996 1 Tablet(s) PO HS 05/16/200907/14 Inactive ipratropium-albuterol 0.5 mg-3 mg(2.5 mg base)/3 mL ne bulization soln RxNorm: 4443263 1 Unit Dose INH Q4H as needed No Start Date Active MagOx 400 mg (241.3 mg magnesium) tablet RxNorm: 904719 1 Table t(s) PO BID No Start Date Active Vitamin B12 1000mcg Tablet RxNorm: 1 Tablet(s) PO QD No Start Date Active Vitamin D3 5,000 unit tablet RxNorm: 030185 1 Tablet(s) PO QD No Star t Date Active Tylenol Arthritis Pain 650 mg tablet,extended release RxNorm : 0118514 1 Tablet(s) PO Q4H No Start Date Active Lotrimin AF 2 % topical powder RxNorm: 150533 1 Application TOP BID No Start Date Active enalapril maleate 5 mg Tab RxNorm: 710435 1 Tablet(s) PO QD No Star t Date 07/20/2012 Inactive Demerol 100 mg Tab RxNorm: 479523 Tablet(s) PO PRN MIGRAINE No Star t Date 06/02/2009 Inactive metformin 500 mg tablet RxNorm: 993298 1 Tablet(s) PO QD No Start D ate 04/05/2013 Inactive Breo Ellipta 100 mcg-25 mcg/dose powder for inhalation RxNor m: 9731161 1 Puff(s) INH BID No Start Date 01/04/2016 Inactive Mag-Oxide 400 mg Tab RxNorm: 382867 1 Tablet(s) PO QD No Start Date 0 07/21/2012 Inactive Cipro 500 mg Tab RxNorm: 057716 1 Tablet(s) PO QD No Start Date 04/05 Inactive Ativan 0.5 mg tablet RxNorm: 518191 1 Tablet(s) PO TID as needed No Start Date 05/06/2019 Inactive melatonin 3 mg tablet RxNorm: 533065 2 Tablet(s) PO QHS No Start Da te 08/19/2018 Inactive buspirone 10 mg Tab RxNorm: 548292 1 Tablet(s) PO QD No Start Date Inactive sucralfate 100 mg/mL Oral Susp RxNorm: 904426 2 Teaspoon(s) PO QID No Start Date 07/21/2012 Inactive hydrocodone 5 mg-acetaminophen 325 mg tablet RxNorm: 597278 1 Tablet(s) PO Q4H as needed No Start Date 08/19/2018 Inactive Amaryl 2 mg tablet RxNorm: 599019 1 Tablet(s) PO BID No Start Date Inactive OxyContin 20 mg 12 hr Tab RxNorm: 6142007 1 Tablet(s) PO BID No Sta rt Date 11/27/2009 Inactive propranolol 40 mg tablet RxNorm: 018912 1 Tablet(s) PO QID No Start Date 01/19/2018 Inactive Trazadone 150 mg Tablet RxNorm: 1-2 Tablet(s) PO QHS prn sleep No Start Date 08/09/2010 Inactive propranolol 60 mg Tab RxNorm: 682818 1/2 Tablet(s) PO BID No Start Date 01/21/2011 Inactive insulin NPH and regular human subcutaneous RxNorm: 4638986 subcu taneous No Start Date 11/20/2018 Inactive Ativan 0.5 mg tablet RxNorm: 723077 1 Tablet(s) PO QID No Start Date 06/18/2016 Inactive Vasotec 5 mg Tab RxNorm: 084936 1 Tablet(s) PO BID No Start Date 06/2011 Inactive Toprol XL 50 mg tablet,extended release RxNorm: 929268 1 Tablet (s) PO BID No Start Date 04/05/2013 Inactive Ativan 0.5 mg tablet RxNorm: 702646 1 Tablet(s) PO TID No Start Date 05/25/2016 Inactive Klor-Con M20 20 mEq Tab RxNorm: 5252866 1 Tablet(s) PO QD No Start Date 03/19/2011 Inactive sumatriptan 100 mg tablet RxNorm: 398329 1 Tablet(s) PO at headache onset--repeat in 2hrs if remains No Start Date 07/21/2012 Inactive propranolol 60 mg Tab RxNorm: 303877 1 Tablet(s) PO BID No Start Da te 08/28/2009 Inactive Cholestyramine Light 4 gram Oral Powder RxNorm: 0670728 1 Unit Dose PO QD in water No Start Date 07/21/2012 Inactive nystatin 100,000 unit/g Topical Powder RxNorm: 659183 Applicati on TOP BID No Start Date 07/21/2012 Inactive vitamin T89-ngitn acid sublingual RxNorm: sublingual No Start Date 07/05/2013 Inactive cyclobenzaprine 5 mg tablet RxNorm: 512190 1/2-1 Tablet (s) PO TID as needed for muscle spasm No Start Date 07/18/2017 Inactive tramadol 50 mg tablet RxNorm: 061250 2 Tablet(s) PO TID as need ed for pain No Start Date 09/01/2014 Inactive aspirin 81 mg Tab RxNorm: 069234 1 Tablet(s) PO QOD No Start Date 04/2013 Inactive Vitamin B12 1000mcg Tablet RxNorm: 1 Tablet(s) PO QD No Start Date 07/18/2017 Inactive cholestyramine (with sugar) 4 gram oral powder RxNorm: 03499 3 1 Unit(s) PO QD as needed No Start Date 05/20/2018 Inactive ProAir HFA 90 mcg/Actuation Aerosol Inhaler RxNorm: 461368 2 Puff(s) INH Q4H prn shortness of breath No Start Date 07/21/2012 Inactive pravastatin 10 mg Tab RxNorm: 033913 1 Tablet(s) PO QD No Start Date 07/21/2012 Inactive gabapentin 800 mg Tab RxNorm: 456060 1 Tablet(s) PO BID No Start Da te 06/03/2011 Inactive Endocet 10 mg-325 mg Tab RxNorm: 0437406 1 Tablet(s) PO TID No Star t Date 06/02/2009 Inactive Naproxen 500 mg Tab RxNorm: 186340 1 Tablet(s) PO BID No Start Date 0 04/05/2010 Inactive Valium 10 mg Tab RxNorm: 340974 1 Tablet(s) PO BID No Start Date 07/04 Inactive enalapril maleate 5 mg Tab RxNorm: 385073 1 Tablet(s) PO QD No Star t Date 11/15/2010 Inactive doxepin 10 mg capsule RxNorm: 4058728 2 Capsule(s) PO QHS No Start Date 09/17/2018 Inactive MS Contin 15 mg Tab RxNorm: 434987 1 Tablet(s) PO BID No Start Date 0 09/18/2010 Inactive buspirone 5 mg tablet RxNorm: 951445 1 Tablet(s) PO TID No Start Da te 12/01/2013 Inactive [place] 3 Fish Oil Cap RxNorm: 1 Capsule(s) PO QD No Start Date 07/03 Inactive enalapril maleate 5 mg Tab RxNorm: 092246 1/2 Tablet(s) PO QD No St art Date 03/07/2011 Inactive Lyrica 75 mg capsule RxNorm: 817046 1 Capsule(s) PO QHS No Start Da te 02/08/2014 Inactive Lopressor 100 mg tablet RxNorm: 446968 1 Tablet(s) PO BID No Start Date 06/08/2018 Inactive Lantus Solostar U-100 Insulin 100 unit/mL (3 mL) subcu taneous pen RxNorm: 197238 45 Unit(s) SQ QAM No Start Date 05/20/2018 Inactive aspirin 81 mg tablet RxNorm: 248980 1 Tablet(s) PO QD No Start Date 0 09/14/2015 Inactive diltiazem CD 240 mg capsule,extended release 24 hr RxNorm: 8 28395 1 Capsule(s) PO QD No Start Date 05/25/2019 Inactive insulin NPH isophane U-100 human subcutaneous RxNorm: 355761 [place] bcutaneous No Start Date 04/20/2019 Inactive sumatriptan 100 mg tablet RxNorm: 442341 1 Tablet(s) PO at headache onset. May repeat 1 in two hours if headache remains. Max of 2 per 24 hours No Start Date 04/01/2018 Inactive gabapentin 300 mg capsule RxNorm: 918131 1 Capsule(s) PO QHS No Sta rt Date 02/04/2018 Inactive Topamax 25 mg Tab RxNorm: 111118 Oral No Start Date 03/07/2011 In active Senokot-S 8.6 mg-50 mg Tab RxNorm: 6333200 1 Tablet(s) PO QD No Sta rt Date 03/07/2011 Inactive metformin ER 500 mg 24 hr tablet,extended release RxNorm: 18 29395 1 Tablet(s) PO QD No Start Date 05/20/2018 Inactive Symbicort 80 mcg-4.5 mcg/actuation HFA Aerosol Inhaler RxNor m: 8893752 2 Puff(s) INH BID No Start Date 04/05/2013 Inactive metoprolol tartrate 25 mg tablet RxNorm: 899850 1 Tablet(s) PO BID No Start Date 05/20/2019 Inactive propranolol 60 mg Tab RxNorm: 039903 1/2 Tablet(s) PO BID No Start Date 07/21/2012 Inactive metformin ER 500 mg 24 hr tablet,extended release RxNorm: 18 40143 2 Tablet(s) PO QD No Start Date 12/16/2017 Inactive Insulin Syringe 1 mL 29 gauge x 1/2" RxNorm: 2 s yringes daily with insulin Dx: E11.65 No Start Date 10/07/2018 Inactive Amitriptyline 75 mg Tab RxNorm: 344417 1 Tablet(s) PO QHS No Start Date 10/23/2009 Inactive donepezil 10 mg Tab RxNorm: 334892 1 Tablet(s) PO QD No Start Date Inactive Lantus Solostar U-100 Insulin 100 unit/mL (3 mL) subcu taneous pen RxNorm: 984600 36 Unit(s) SQ QAM No Start Date 12/24/2017 Inactive Miacalcin 200 unit/Actuation Nasal [place] Aerosol RxNorm: 261 204 1 [place] NASAL QD Alternate nostrils each day No Start Date 04/05/2010 Inactive Amitriptyline 150 mg Tab RxNorm: 051011 1 Tablet(s) PO QHS No Start Date 01/04/2010 Inactive Bystolic 5 mg tablet RxNorm: 992688 1 Tablet(s) PO QD No Start Date 0 08/13/2012 Inactive Aricept 10 mg Tab RxNorm: 127105 1 Tablet(s) PO QD No Start Date 11/03 Inactive Lantus Solostar U-100 Insulin 100 unit/mL (3 mL) subcu taneous pen RxNorm: 411460 50 Unit(s) SQ QAM No Start Date 08/27/2018 Inactive albuterol sulfate 2.5 mg/3 mL (0.083 %) Neb Solution RxNorm: 791632 1 Unit Dose INH QID as needed No Start Date 08/23/2015 Inactive Symbicort 160 mcg-4.5 mcg/actuation HFA Aerosol Inhaler RxNo rm: 3768912 2 Puff(s) INH BID No Start Date 12/03/2011 Inactive Savella 50 mg Tab RxNorm: 887439 1 Tablet(s) PO BID No Start Date 04/2010 Inactive amitriptyline 100 mg Tab RxNorm: 000533 1 1/2 Tablet(s) PO QHS No S tart Date 06/19/2011 Inactive nystatin 100,000 unit/g Topical Cream RxNorm: 163814 Ap plication TOP BID to rash for 2-4 weeks No Start Date 01/14/2011 Inactive Trelegy Ellipta 100 mcg-62.5 mcg-25 mcg powder for inhalatio n RxNorm: 5168857 1 Puff(s) INH QD No Start Date 12/16/2017 Inactive Lyrica 150 mg capsule RxNorm: 801325 1 Capsule(s) PO QHS No Start D ate 12/04/2015 Inactive sennosides 8.6 mg tablet RxNorm: 169190 1 Tablet(s) PO BID No Start Date 09/07/2018 Inactive metformin ER 500 mg tablet,extended release 24 hr RxNorm: 86 0975 1 Tablet(s) PO QD No Start Date 10/22/2017 Inactive Fish Oil 1,000 mg Cap RxNorm: 1 Capsule(s) PO QD No Start Date 06/2011 Inactive Zyrtec 10 mg Tab RxNorm: 7965832 1 Tablet(s) PO QD No Start Date 07/03 Inactive albuterol sulfate HFA 90 mcg/actuation aerosol inhaler RxNor m: 4919049 2 Puff(s) INH Q4H as needed for cough No Start Date 09/30/2013 Inactive trazodone 150 mg tablet RxNorm: 906606 1 Tablet(s) PO QHS No Start Date 07/21/2012 Inactive Spiriva with HandiHaler 18 mcg & inhalation capsules RxNorm: 489912 1 Capsule(s) INH QD No Start Date 04/05/2013 Inactive Coreg 3.125 mg Tab RxNorm: 723904 1 Tablet(s) PO BID No Start Date Inactive Phenergan 25 mg Tab RxNorm: 785611 Tablet(s) PO PRN MIGRAINE No Sta rt Date 11/21/2009 Inactive Vitamin D 50,000 unit Cap RxNorm: 2278598 1 Capsule(s) PO QW No Sta rt Date 03/07/2011 Inactive Januvia 100 mg tablet RxNorm: 571858 1 Tablet(s) PO QD No Start Date 10/25/2015 Inactive Eliquis 5 mg tablet RxNorm: 1262015 1 Tablet(s) PO BID No Start Date 08/19/2018 Inactive Advair Diskus 500 mcg-50 mcg/Dose for Inhalation RxNorm: 353963 1 INH BID No Start Date 07/21/2012 Inactive Vitamin D3 5,000 unit tablet RxNorm: 627187 1 Tablet(s) PO QD No St art Date 07/18/2017 Inactive Amaryl 2 mg tablet RxNorm: 773962 1 Tablet(s) PO QD No Start Date 06/2015 Inactive Actos 30 mg tablet RxNorm: 640226 1 Tablet(s) PO QD No Start Date Inactive promethazine 25 mg tablet RxNorm: 028904 1 Tablet(s) PO Q4H prn N/V No Start Date 07/21/2012 Inactive ProAir HFA 90 mcg/actuation Aerosol Inhaler RxNorm: 265280 2 Puff(s) INH Q4H prn dyspnea No Start Date 07/21/2012 Inactive Dexilant 60 mg Capsule RxNorm: 069850 1 Capsule(s) PO QD No Start D ate 01/27/2012 Inactive Lantus Solostar U-100 Insulin 100 unit/mL (3 mL) subcu taneous pen RxNorm: 061612 38 Unit(s) SQ QAM No Start Date 05/20/2018 Inactive Valium 10 mg Tab RxNorm: 270044 1 Tablet(s) PO QHS AND PRN No Start Date 10/24/2009 Inactive ZOFRAN ODT 8 mg disintegrating tablet RxNorm: 950210 1 Tablet(s ) PO Q6H No Start [...] Date S vice Location MICROALBUMIN URINE RANDOM 40797 MICRL MG/L 14.9 MG/L Unknown MICROALBUMIN URINE RANDOM 70795 XM.ALB/CRE 6.1 MG/GCR Unknown MICROALBUMIN URINE RANDOM 74814 CREAT MG/D 243 MG/DL Unknown MICROALBUMIN URINE RANDOM 71656 CRE/100 2.43 G/L 03/05 Unknown PROTEIN/CREAT URINE WITH RATIO 90953|31246 PROT R U 14 MG/D L 04/01/2014 Unknown PROTEIN/CREAT URINE WITH RATIO 24552|46258 CREAT R U 254 MG/ DL 04/01/2014 Unknown PROTEIN/CREAT URINE WITH RATIO 27623|33787 XRATIO P/C 55 MG/ G 04/01/2014 Unknown URINALYSIS 81170 PROTEIN UR NEG 04/28/2010 Unknown URINALYSIS 54847 HEMGLBN UR NEG 04/28/2010 Unknown URINALYSIS 96430 GLUCOSE UR NEG 04/28/2010 Unknown URINALYSIS 56892 KETONES UR NEG 04/28/2010 Unknown URINALYSIS 31746 PH U 5.5 04/28/2010 Unknown URINALYSIS 49863 SP GR U 1.025 04/28/2010 Unknown URINALYSIS 39572 BILRUBN UR NEG 04/28/2010 Unknown URINALYSIS 43012 LEUKO UR 2+ 04/28/2010 Unknown URINALYSIS 34500 NITRITE UR NEG 04/28/2010 Unknown MICR CUL? [id number] WBC/HPF 6-10 04/28/2010 Unknown MICR CUL? [id number] RBC/HPF 0-5 04/28/2010 Unknown MICR CUL? [id number] HYAL CAST 16-25 04/28/2010 Unknown MICR CUL? [id number] SP TO YOLIE? NO 04/28/2010 Unknown MICR CUL? [id number] APPEAR UR NORMAL 04/28/2010 Unknown MICR CUL? [id number] SQ EPI/LPF FEW 04/28/2010 Unknown Procedures Procedure Codes Date URINALYSIS NONAUTO W/O SCOPE CPT-4: 75781 04/16/2019 URINE CULTURE/ COLONY COUNT CPT-4: 57443 04/16/2019 CEFTRIAXONE SODIUM INJECTION CPT-4: J0696 04/16/2019 THER/PROPH/DIAG INJ SC/IM CPT-4: 61094 04/16/2019 DRAIN/INJECT JOINT/BURSA CPT-4: 19351 01/22/2019 TRIAMCINOLONE ACET INJ NOS CPT-4: J3301 01/22/2019 DEXAMETHASONE SODIUM PHOS CPT-4: J1100 01/22/2019 URINE CULTURE/ COLONY COUNT CPT-4: 06897 01/07/2019 URINALYSIS NONAUTO W/O SCOPE CPT-4: 98547 01/07/2019 CEFTRIAXONE SODIUM INJECTION CPT-4: J0696 01/07/2019 THER/PROPH/DIAG INJ SC/IM CPT-4: 32001 01/07/2019 FLU VACC PRSV FREE INC ANTIG 65 AND OLDER CPT-4: 22765 12/24/2018 FLU VACC PRSV FREE INC ANTIG 65 AND OLDER CPT-4: 91357 12/24/2018 ADMIN INFLUENZA VIRUS VAC CPT-4: G0008 12/24/2018 THER/PROPH/DIAG INJ SC/IM CPT-4: 57301 11/04/2018 KETOROLAC TROMETHAMINE INJ CPT-4: J1885 11/04/2018 PROMETHAZINE HCL INJECTION CPT-4: J2550 11/04/2018 PPPS, subseq visit CPT-4: G0439 09/18/2018 THER/PROPH/DIAG INJ SC/IM CPT-4: 48934 04/01/2018 KETOROLAC TROMETHAMINE INJ CPT-4: J1885 04/01/2018 PROMETHAZINE HCL INJECTION CPT-4: J2550 04/01/2018 URINE CULTURE/ COLONY COUNT CPT-4: 15837 03/17/2018 URINALYSIS NONAUTO W/O SCOPE CPT-4: 33186 03/17/2018 FLU VACC PRSV FREE INC ANTIG 65 AND OLDER CPT-4: 78350 12/17/2017 PNEUMOCOCCAL VACC 23 RANDALL IM CPT-4: 18347 12/17/2017 ADMIN INFLUENZA VIRUS VAC CPT-4: G0008 12/17/2017 ADMIN PNEUMOCOCCAL VACCINE CPT-4: G0009 12/17/2017 PPPS, subseq visit CPT-4: G0439 09/17/2017 THER/PROPH/DIAG INJ SC/IM CPT-4: 44817 08/26/2017 KETOROLAC TROMETHAMINE INJ CPT-4: J1885 08/26/2017 PROMETHAZINE HCL INJECTION CPT-4: J2550 08/26/2017 URINALYSIS NONAUTO W/O SCOPE CPT-4: 18961 07/19/2017 URINE CULTURE/ COLONY COUNT CPT-4: 67251 07/19/2017 CEFTRIAXONE SODIUM INJECTION CPT-4: J0696 07/19/2017 THER/PROPH/DIAG INJ SC/IM CPT-4: 92128 07/19/2017 THER/PROPH/DIAG INJ SC/IM CPT-4: 74787 07/19/2017 TRIAMCINOLONE ACET INJ NOS CPT-4: J3301 07/19/2017 PRESCRIP TRANSMIT VIA ERX SY CPT-4: G8553 05/07/2017 PRESCRIP TRANSMIT VIA ERX SY CPT-4: G8553 02/22/2017 PRESCRIP TRANSMIT VIA ERX SY CPT-4: G8553 01/23/2017 FLU VACC PRSV FREE INC ANTIG 65 AND OLDER CPT-4: 60505 12/20/2016 PNEUMOCOCCAL VACC 13 RANDALL IM CPT-4: 97933 12/20/2016 ADMIN INFLUENZA VIRUS VAC CPT-4: G0008 12/20/2016 ADMIN PNEUMOCOCCAL VACCINE CPT-4: G0009 12/20/2016 URINALYSIS NONAUTO W/O SCOPE CPT-4: 79906 10/08/2016 URINE CULTURE/ COLONY COUNT CPT-4: 26043 10/08/2016 PRESCRIP TRANSMIT VIA ERX SY CPT-4: G8553 10/08/2016 PRESCRIP TRANSMIT VIA ERX SY CPT-4: G8553 09/19/2016 PRESCRIP TRANSMIT VIA ERX SY CPT-4: G8553 08/20/2016 PRESCRIP TRANSMIT VIA ERX SY CPT-4: G8553 02/29/2016 KETOROLAC TROMETHAMINE INJ CPT-4: J1885 02/02/2016 THER/PROPH/DIAG INJ SC/IM CPT-4: 96406 02/02/2016 PROMETHAZINE HCL INJECTION CPT-4: J2550 02/02/2016 PRESCRIP TRANSMIT VIA ERX SY CPT-4: G8553 02/02/2016 FLU VACC PRSV FREE INC ANTIG 65 AND OLDER CPT-4: 35284 01/05/2016 PPPS, subseq visit CPT-4: G0439 01/05/2016 ADMIN INFLUENZA VIRUS VAC CPT-4: G0008 01/05/2016 URINE CULTURE/ COLONY COUNT CPT-4: 71171 12/05/2015 URINALYSIS NONAUTO W/O SCOPE CPT-4: 26903 12/05/2015 PRESCRIP TRANSMIT VIA ERX SY CPT-4: G8553 12/05/2015 PRESCRIP TRANSMIT VIA ERX SY CPT-4: G8553 10/26/2015 URINALYSIS NONAUTO W/O SCOPE CPT-4: 44288 10/05/2015 URINE CULTURE/ COLONY COUNT CPT-4: 33227 10/05/2015 PRESCRIP TRANSMIT VIA ERX SY CPT-4: G8553 10/05/2015 SERVICE REQUIRED FOR PMD CPT-4: G0372 09/15/2015 PRESCRIP TRANSMIT VIA ERX SY CPT-4: G8553 09/15/2015 SPECIAL REPORTS OR FORMS CPT-4: 44269 08/25/2015 PRESCRIP TRANSMIT VIA ERX SY CPT-4: G8553 07/05/2015 URINALYSIS NONAUTO W/O SCOPE CPT-4: 69767 03/30/2015 ASSAY, GLUCOSE, BLOOD QUANT CPT-4: 72406 03/30/2015 URINE CULTURE/ COLONY COUNT CPT-4: 26724 03/30/2015 PRESCRIP TRANSMIT VIA ERX SY CPT-4: G8553 03/30/2015 PRESCRIP TRANSMIT VIA ERX SY CPT-4: G8553 02/03/2015 FLU VACC PRSV FREE INC ANTIG 65 AND OLDER CPT-4: 71839 12/29/2014 ADMIN INFLUENZA VIRUS VAC CPT-4: G0008 12/29/2014 PRESCRIP TRANSMIT VIA ERX SY CPT-4: G8553 12/29/2014 PRESCRIP TRANSMIT VIA ERX SY CPT-4: G8553 09/02/2014 PROTEIN/CREAT URINE WITH RATIO CPT-4: 01148|28718 5 MICROALBUMIN QUANTITATIVE CPT-4: 14495 04/01/2014 PRESCRIP TRANSMIT VIA ERX SY CPT-4: G8553 03/16/2014 PRESCRIP TRANSMIT VIA ERX SY CPT-4: G8553 03/09/2014 THER/PROPH/DIAG INJ SC/IM CPT-4: 70473 03/01/2014 TRIAMCINOLONE ACET INJ NOS CPT-4: J3301 03/01/2014 PRESCRIP TRANSMIT VIA ERX SY CPT-4: G8553 02/09/2014 URINE CULTURE/ COLONY COUNT CPT-4: 73908 10/30/2013 URINALYSIS NONAUTO W/O SCOPE CPT-4: 14434 10/21/2013 URINE CULTURE/ COLONY COUNT CPT-4: 24895 10/21/2013 DESTRUCT PREMALG LESION (Cryosurgery) CPT-4: 08577 PRESCRIP TRANSMIT VIA ERX SY CPT-4: G8553 10/05/2013 URINALYSIS NONAUTO W/O SCOPE CPT-4: 82559 08/04/2013 URINE CULTURE/ COLONY COUNT CPT-4: 63445 08/04/2013 PRESCRIP TRANSMIT VIA ERX SY CPT-4: G8553 08/04/2013 THER/PROPH/DIAG INJ SC/IM CPT-4: 18797 07/13/2013 TRIAMCINOLONE ACET INJ NOS CPT-4: J3301 07/13/2013 PRESCRIP TRANSMIT VIA ERX SY CPT-4: G8553 05/27/2013 URINALYSIS NONAUTO W/O SCOPE CPT-4: 17024 05/25/2013 URINE CULTURE/ COLONY COUNT CPT-4: 41909 05/25/2013 THER/PROPH/DIAG INJ SC/IM CPT-4: 71740 05/04/2013 VITAMIN B12 INJECTION CPT-4: J3420 05/04/2013 THER/PROPH/DIAG INJ SC/IM CPT-4: 55241 04/17/2013 VITAMIN B12 INJECTION CPT-4: J3420 04/17/2013 THER/PROPH/DIAG INJ SC/IM CPT-4: 89271 04/17/2013 METHYLPREDNISOLONE 40 MG INJ CPT-4: J1030 04/17/2013 TRIAMCINOLONE ACET INJ NOS CPT-4: J3301 04/17/2013 URINALYSIS NONAUTO W/O SCOPE CPT-4: 71519 04/06/2013 URINE CULTURE/ COLONY COUNT CPT-4: 73266 04/06/2013 PRESCRIP TRANSMIT VIA ERX SY CPT-4: G8553 04/06/2013 KETOROLAC TROMETHAMINE INJ CPT-4: J1885 06/25/2012 PROMETHAZINE HCL INJECTION CPT-4: J2550 06/25/2012 THER/PROPH/DIAG INJ SC/IM CPT-4: 32002 06/25/2012 THER/PROPH/DIAG INJ SC/IM CPT-4: 12134 06/24/2012 METHYLPREDNISOLONE 40 MG INJ CPT-4: J1030 06/24/2012 TRIAMCINOLONE ACET INJ NOS CPT-4: J3301 06/24/2012 URINE CULTURE/ COLONY COUNT CPT-4: 04463 06/24/2012 THER/PROPH/DIAG INJ SC/IM CPT-4: 94025 05/20/2012 KETOROLAC TROMETHAMINE INJ CPT-4: J1885 05/20/2012 THER/PROPH/DIAG INJ SC/IM CPT-4: 44622 05/20/2012 PROMETHAZINE HCL INJECTION CPT-4: J2550 05/20/2012 DRAIN/INJECT JOINT/BURSA CPT-4: 68994 02/13/2012 METHYLPREDNISOLONE 40 MG INJ CPT-4: J1030 02/13/2012 TRIAMCINOLONE ACET INJ NOS CPT-4: J3301 02/13/2012 THER/PROPH/DIAG INJ SC/IM CPT-4: 89996 11/14/2011 METHYLPREDNISOLONE 40 MG INJ CPT-4: J1030 11/14/2011 TRIAMCINOLONE ACET INJ NOS CPT-4: J3301 11/14/2011 THER/PROPH/DIAG INJ SC/IM CPT-4: 45111 09/12/2011 KETOROLAC TROMETHAMINE INJ CPT-4: J1885 09/12/2011 THER/PROPH/DIAG INJ SC/IM CPT-4: 08954 08/09/2011 METHYLPREDNISOLONE 40 MG INJ CPT-4: J1030 08/09/2011 TRIAMCINOLONE ACET INJ NOS CPT-4: J3301 08/09/2011 URINE CULTURE/ COLONY COUNT CPT-4: 15818 07/03/2011 URINE CULTURE/ COLONY COUNT CPT-4: 07865 06/04/2011 THER/PROPH/DIAG INJ SC/IM CPT-4: 29377 05/03/2011 METHYLPREDNISOLONE 40 MG INJ CPT-4: J1030 05/03/2011 TRIAMCINOLONE ACET INJ NOS CPT-4: J3301 05/03/2011 URINALYSIS NONAUTO W/O SCOPE CPT-4: 62294 01/24/2011 URINE CULTURE/ COLONY COUNT CPT-4: 66706 01/24/2011 FLUZONE, 5ML (Medicare) CPT-4: Q2038 01/02/2011 ADMIN INFLUENZA VIRUS VAC CPT-4: G0008 01/02/2011 ASSAY, GLUCOSE, BLOOD QUANT CPT-4: 43834 12/07/2010 URINE CULTURE/ COLONY COUNT CPT-4: 18960 11/02/2010 THER/PROPH/DIAG INJ SC/IM CPT-4: 53415 10/18/2010 METHYLPREDNISOLONE 40 MG INJ CPT-4: J1030 10/18/2010 TRIAMCINOLONE ACET INJ NOS CPT-4: J3301 10/18/2010 TRIAMCINOLONE ACET INJ NOS CPT-4: J3301 05/11/2010 METHYLPREDNISOLONE 40 MG INJ CPT-4: J1030 05/11/2010 THER/PROPH/DIAG INJ SC/IM CPT-4: 43758 05/11/2010 TRIAMCINOLONE ACET INJ NOS CPT-4: J3301 02/09/2010 METHYLPREDNISOLONE 40 MG INJ CPT-4: J1030 02/09/2010 THER/PROPH/DIAG INJ SC/IM CPT-4: 46386 02/09/2010 SERVICE REQUIRED FOR PMD CPT-4: G0372 02/09/2010 FLU VACCINE 3 YRS & > IM UP 64 CPT-4: 61644 0 PNEUMOCOCCAL VACC 23 RANDALL IM CPT-4: 88802 12/07/2009 ADMIN INFLUENZA VIRUS VAC CPT-4: G0008 12/07/2009 ADMIN PNEUMOCOCCAL VACCINE CPT-4: G0009 12/07/2009 TRIAMCINOLONE ACET INJ NOS CPT-4: J3301 05/26/2009 THER/PROPH/DIAG INJ SC/IM CPT-4: 07652 05/26/2009 METHYLPREDNISOLONE 80 MG INJ CPT-4: J1040 [...] 1: 114/72 Code: 8480-6 BMI: 37.8 Code: 01696-1 Heart Rate 1: 72 bpm Height: 5'3" [...] 1: 106/68 Code: 8480-6 BMI: 35.7 Code: 62349-9 Heart Rate 1: 72 bpm Height: 5'4" Respiratory Rate: 20 bpm SpO2: 98% Tempera ture: 36.7 (C) / 98.0 (F) Weight: 208 lbs 04/16/2018 Blood Pressure 1: 132/82 Code: 8480-6 BMI: 37.9 Code: 17856-0 Heart Rate 1: 72 bpm Height: 5'4" Respiratory Rate: 20 bpm SpO2: 96% Tempera ture: 37.1 (C) / 98.8 (F) Weight: 221 lbs 04/01/2018 Blood Pressure 1: 150/90 Code: 8480-6 Heart Rate 1: 72 bpm Respiratory Rate: 22 bpm SpO2: 95% Temperature: 36.4 (C) / 97.6 (F) We ight: 216 lbs 03/06/2018 Blood Pressure 1: 126/78 Code: 8480-6 BMI: 37.4 Code: 15574-6 Heart Rate 1: 68 bpm Height: 5'4" [...] ight: 222 lbs 12/25/2017 BMI: 37.8 Code: 54301-7 Heart Rate 1: 76 bpm Height: 5 '4" Respiratory Rate: 20 bpm SpO2: 96% Temperature: 37.3 (C) / 99.2 (F) Weight: 220 lbs 12/17/2017 Blood Pressure 1: 132/78 Code: 8480-6 BMI: 37.2 Code: 37378-2 Heart Rate 1: 88 bpm Height: 5'4" Respiratory Rate: 20 bpm SpO2: 96% Tempera ture: 37.3 (C) / 99.2 (F) Weight: 217 lbs 10/30/2017 Blood Pressure 1: 114/68 Code: 8480-6 BMI: 36.4 Code: 73327-1 Heart Rate 1: 72 bpm Height: 5'4" Respiratory Rate: 22 bpm SpO2: 96% Tempera ture: 36.8 (C) / 98.2 (F) Weight: 212 lbs 10/23/2017 Blood Pressure 1: 124/78 Code: 8480-6 Heart Rate 1: 72 bpm Respiratory Rate: 24 bpm SpO2: 94% Temperature: 36.6 (C) / 97.9 (F) We ight: 212 lbs 09/17/2017 Blood Pressure 1: 128/82 Code: 8480-6 BMI: 37.4 Code: 55224-4 Heart Rate 1: 72 bpm Height: 5'4" Respiratory Rate: 20 bpm SpO2: 96% Tempera ture: 37.0 (C) / 98.6 (F) Weight: 218 lbs 07/19/2017 Blood Pressure 1: 136/84 Code: 8480-6 BMI: 36.6 Code: 53899-4 Heart Rate 1: 88 bpm Height: 5'4" Respiratory Rate: 20 bpm SpO2: 97% Tempera ture: 36.7 (C) / 98.0 (F) Weight: 213 lbs 05/29/2017 Blood Pressure 1: 136/82 Code: 8480-6 BMI: 36.7 Code: 05908-2 Heart Rate 1: 72 bpm Height: 5'4" Respiratory Rate: 20 bpm SpO2: 97% Tempera ture: 36.9 (C) / 98.4 (F) Weight: 214 lbs 05/07/2017 Blood Pressure 1: 122/80 Code: 8480-6 BMI: 37.1 Code: 05474-6 Heart Rate 1: 80 bpm Height: 5'4" Respiratory Rate: 24 bpm SpO2: 96% Tempera ture: 36.1 (C) / 97.0 (F) Weight: 216 lbs 03/18/2017 BMI: 36.7 Code: 96294-1 Heart Rate 1: 80 bpm Height: 5 '4" Respiratory Rate: 22 bpm SpO2: 95% Temperature: 36.9 (C) / 98.4 (F) Weight: 214 lbs 02/27/2017 Blood Pressure 1: 146/94 Code: 8480-6 BMI: 36.6 Code: 86875-5 Heart Rate 1: 76 bpm Height: 5'4" Respiratory Rate: 22 bpm SpO2: 97% Tempera ture: 36.6 (C) / 97.9 (F) Weight: 213 lbs 02/22/2017 Blood Pressure 1: 126/90 Code: 8480-6 BMI: 36.4 Code: 46862-4 Heart Rate 1: 84 bpm Height: 5'4" Respiratory Rate: 22 bpm SpO2: 95% Tempera ture: 36.9 (C) / 98.4 (F) Weight: 212 lbs 01/23/2017 Blood Pressure 1: 146/82 Code: 8480-6 BMI: 37.6 Code: 20735-1 Heart Rate 1: 96 bpm Height: 5'4" Respiratory Rate: 20 bpm SpO2: 96% Tempera ture: 36.9 (C) / 98.4 (F) Weight: 219 lbs 12/20/2016 Blood Pressure 1: 126/70 Code: 8480-6 BMI: 37.2 Code: 96797-6 Heart Rate 1: 76 bpm Height: 5'4" Respiratory Rate: 22 bpm SpO2: 95% Tempera ture: 36.6 (C) / 97.8 (F) Weight: 217 lbs 10/08/2016 Blood Pressure 1: 128/82 Code: 8480-6 BMI: 36.9 Code: 05086-4 Heart Rate 1: 76 bpm Height: 5'4" Respiratory Rate: 20 bpm SpO2: 95% Tempera ture: 37.0 (C) / 98.6 (F) Weight: 215 lbs 09/19/2016 Blood Pressure 1: 144/78 Code: 8480-6 BMI: 37.8 Code: 69852-4 Heart Rate 1: 76 bpm Height: 5'4" Respiratory Rate: 22 bpm SpO2: 95% Tempera ture: 37.0 (C) / 98.6 (F) Weight: 220 lbs 08/20/2016 Blood Pressure 1: 140/86 Code: 8480-6 BMI: 37.4 Code: 48916-2 Heart Rate 1: 80 bpm Height: 5'4" Respiratory Rate: 20 bpm SpO2: 95% Tempera ture: 36.9 (C) / 98.4 (F) Weight: 218 lbs 06/19/2016 Blood Pressure 1: 124/78 Code: 8480-6 BMI: 37.8 Code: 38189-4 Heart Rate 1: 74 bpm Height: 5'4" Respiratory Rate: 24 bpm SpO2: 96% Tempera ture: 36.9 (C) / 98.4 (F) Weight: 220 lbs 06/04/2016 Blood Pressure 1: 124 Code: 8480-6 BMI: 38.8 Code: 90875-8 Heart Rate 1: 72 bpm Height: 5'4" Respiratory Rate: 24 bpm SpO2: 95% Tempera ture: 36.8 (C) / 98.2 (F) Weight: 226 lbs 05/02/2016 Blood Pressure 1: 136/90 Code: 8480-6 BMI: 37.6 Code: 83497-3 Heart Rate 1: 72 bpm Height: 5'4" Respiratory Rate: 24 bpm SpO2: 96% Tempera ture: 36.9 (C) / 98.4 (F) Weight: 219 lbs 04/03/2016 Blood Pressure 1: 126/78 Code: 8480-6 BMI: 38.1 Code: 53242-8 Heart Rate 1: 72 bpm Height: 5'4" Respiratory Rate: 22 bpm SpO2: 94% Tempera ture: 36.9 (C) / 98.4 (F) Weight: 222 lbs 02/29/2016 Blood Pressure 1: 132/78 Code: 8480-6 Heart Rate 1: 78 bpm Height: Respiratory Rate: 24 bpm SpO2: 95% Temperature: 36.4 (C) / 97.6 (F) We ight: 02/02/2016 Blood Pressure 1: 124/78 Code: 8480-6 BMI: 37.6 Code: 59291-7 Heart Rate 1: 76 bpm Height: 5'4" Respiratory Rate: 20 bpm SpO2: 95% Tempera ture: 36.8 (C) / 98.2 (F) Weight: 219 lbs 01/05/2016 Blood Pressure 1: 126/70 Code: 8480-6 BMI: 37.1 Code: 27311-3 Heart Rate 1: 76 bpm Height: 5'4" Respiratory Rate: 20 bpm Temperature: 36 .6 (C) / 97.8 (F) Weight: 216 lbs 12/05/2015 Blood Pressure 1: 126/72 Code: 8480-6 BMI: 36.9 Code: 38446-8 Heart Rate 1: 92 bpm Height: 5'4" Respiratory Rate: 20 bpm Temperature: 36 .7 (C) / 98.1 (F) Weight: 215 lbs 10/26/2015 Blood Pressure 1: 142/80 Code: 8480-6 BMI: 36.4 Code: 21850-4 Heart Rate 1: 82 bpm Height: 5'4" Respiratory Rate: 24 bpm SpO2: 92% Tempera ture: 35.9 (C) / 96.7 (F) Weight: 212 lbs 10/05/2015 Blood Pressure 1: 136/82 Code: 8480-6 Heart Rate 1: 80 bpm Respiratory Rate: 18 bpm SpO2: 98% Temperature: 35.7 (C) / 96.3 (F) We ight: 214 lbs 09/15/2015 Blood Pressure 1: 116/80 Code: 8480-6 BMI: 34.6 Code: 45845-1 Heart Rate 1: 76 bpm Height: 5'6" Respiratory Rate: 20 bpm Temperature: 36 .6 (C) / 97.9 (F) Weight: 211 lbs 08/24/2015 Blood Pressure 1: 124/80 Code: 8480-6 BMI: 34.1 Code: 56752-7 Heart Rate 1: 68 bpm Height: 5'6" Respiratory Rate: 20 bpm Temperature: 36 .8 (C) / 98.3 (F) Weight: 208 lbs 07/05/2015 Blood Pressure 1: 114/78 Code: 8480-6 BMI: 33.9 Code: 46133-9 Heart Rate 1: 80 bpm Height: 5'6" Respiratory Rate: 20 bpm Temperature: 36 .6 (C) / 97.9 (F) Weight: 207 lbs 06/06/2015 Blood Pressure 1: 122/78 Code: 8480-6 BMI: 34.1 Code: 69315-9 Heart Rate 1: 76 bpm Height: 5'6" Respiratory Rate: 24 bpm SpO2: 96% Tempera ture: 36.4 (C) / 97.6 (F) Weight: 208 lbs 05/23/2015 Blood Pressure 1: 124/78 Code: 8480-6 Heart Rate 1: 76 bpm Respiratory Rate: 24 bpm SpO2: 93% Temperature: 36.8 (C) / 98.2 (F) We ight: 212 lbs 05/05/2015 Blood Pressure 1: 136/80 Code: 8480-6 BMI: 35.4 Code: 94325-2 Heart Rate 1: 76 bpm Height: 5'6" Respiratory Rate: 28 bpm Temperature: 37 .0 (C) / 98.6 (F) Weight: 216 lbs 03/30/2015 Blood Pressure 1: 132/86 Code: 8480-6 BMI: 35.2 Code: 78341-4 Heart Rate 1: 84 bpm Height: 5'6" Respiratory Rate: 24 bpm Temperature: 36 .7 (C) / 98.0 (F) Weight: 215 lbs 02/03/2015 Blood Pressure 1: 122/74 Code: 8480-6 BMI: 35.7 Code: 57799-5 Heart Rate 1: 84 bpm Height: 5'6" Respiratory Rate: 20 bpm Temperature: 36 .9 (C) / 98.5 (F) Weight: 218 lbs 12/29/2014 Blood Pressure 1: 132/80 Code: 8480-6 BMI: 35.1 Code: 71555-6 Heart Rate 1: 80 bpm Height: 5'6" Respiratory Rate: 20 bpm Temperature: 36 .6 (C) / 97.8 (F) Weight: 214 lbs 09/02/2014 Blood Pressure 1: 128/92 Code: 8480-6 BMI: 34.7 Code: 38936-4 Heart Rate 1: 84 bpm Height: 5'6" Respiratory Rate: 26 bpm Temperature: 36 .8 (C) / 98.2 (F) Weight: 212 lbs 08/25/2014 Blood Pressure 1: 124/80 Code: 8480-6 BMI: 34.7 Code: 04056-2 Heart Rate 1: 78 bpm Height: 5'6" Respiratory Rate: 22 bpm SpO2: 97% Tempera ture: 36.6 (C) / 97.8 (F) Weight: 212 lbs 04/01/2014 Blood Pressure 1: 142/84 Code: 8480-6 BMI: 34.4 Code: 54377-0 Heart Rate 1: 74 bpm Height: 5'5" Respiratory Rate: 20 bpm Temperature: 36 .4 (C) / 97.6 (F) Weight: 207 lbs 03/16/2014 Blood Pressure 1: 142/90 Code: 8480-6 BMI: 34.6 Code: 80194-0 Heart Rate 1: 76 bpm Height: 5'5" Respiratory Rate: 24 bpm Temperature: 36 .5 (C) / 97.7 (F) Weight: 208 lbs 03/09/2014 Blood Pressure 1: 116/70 Code: 8480-6 BMI: 35.3 Code: 62744-0 Heart Rate 1: 72 bpm Height: 5'5" [...] 1: 128/86 Code: 8480-6 BMI: 34.3 Code: 90202-3 Heart Rate 1: 84 bpm Height: 5'5" Respiratory Rate: 20 bpm Temperature: 36 .7 (C) / 98.0 (F) Weight: 206 lbs 12/23/2013 Blood Pressure 1: 122/70 Code: 8480-6 BMI: 34.3 Code: 16027-1 Heart Rate 1: 68 bpm Height: 5'5" Respiratory Rate: 20 bpm Temperature: 36 .8 (C) / 98.2 (F) Weight: 206 lbs 10/05/2013 Blood Pressure 1: 118/76 Code: 8480-6 BMI: 34.1 Code: 78549-7 Heart Rate 1: 68 bpm Height: 5'5" Respiratory Rate: 20 bpm SpO2: 98% Tempera ture: 36.6 (C) / 97.9 (F) Weight: 205 lbs 08/04/2013 Blood Pressure 1: 126/82 Code: 8480-6 BMI: 33.3 Code: 46908-5 Heart Rate 1: 76 bpm Height: 5'5" Respiratory Rate: 20 bpm Temperature: 36 .8 (C) / 98.2 (F) Weight: 200 lbs 07/03/2013 Blood Pressure 1: 124/82 Code: 8480-6 BMI: 33.3 Code: 27610-5 Heart Rate 1: 72 bpm Height: 5'5" Respiratory Rate: 22 bpm Temperature: 36 .1 (C) / 97.0 (F) Weight: 200 lbs 05/27/2013 Blood Pressure 1: 126/82 Code: 8480-6 Heart Rate 1: 74 bpm Respiratory Rate: 20 bpm Temperature: 36.0 (C) / 96.8 (F) Weight: 199 lbs 04/06/2013 Blood Pressure 1: 118/80 Code: 8480-6 BMI: 35.2 Code: 81149-6 Heart Rate 1: 80 bpm Height: 5'4" Respiratory Rate: 20 bpm Temperature: 37 .4 (C) / 99.3 (F) Weight: 205 lbs 11/10/2012 Blood Pressure 1: 128/82 Code: 8480-6 Heart Rate 1: 84 bpm Respiratory Rate: 20 bpm Temperature: 36.7 (C) / 98.0 (F) Weight: 199 lbs 09/02/2012 Blood Pressure 1: 116/82 Code: 8480-6 BMI: 34.2 Code: 32944-3 Heart Rate 1: 88 bpm Height: 5'4" Respiratory Rate: 22 bpm Temperature: 36 .6 (C) / 97.8 (F) Weight: 199 lbs 08/04/2012 Blood Pressure 1: 128/74 Code: 8480-6 BMI: 34.0 Code: 03529-8 Heart Rate 1: 92 bpm Height: 5'4" Respiratory Rate: 20 bpm Temperature: 36 .4 (C) / 97.5 (F) Weight: 198 lbs 07/21/2012 Blood Pressure 1: 124/86 Code: 8480-6 Heart Rate 1: 116 bpm Respiratory Rate: 24 bpm Temperature: 36.8 (C) / 98.2 (F) 07/02/2012 Blood Pressure 1: 116/88 Code: 8480-6 BMI: 33.6 Code: 55856-5 Heart Rate 1: 76 bpm Height: 5'4" Respiratory Rate: 20 bpm Temperature: 36 .8 (C) / 98.3 (F) Weight: 196 lbs 06/24/2012 Blood Pressure 1: 124/80 Code: 8480-6 BMI: 34.3 Code: 77389-5 Heart Rate 1: 72 bpm Height: 5'4" SpO2: 96% Temperature: 36.3 (C) / 97.3 (F) Weight: 200 lbs 05/20/2012 Blood Pressure 1: 116/88 Code: 8480-6 BMI: 33.8 Code: 89577-4 Heart Rate 1: 80 bpm Height: 5'4" Respiratory Rate: 22 bpm Temperature: 36 .9 (C) / 98.4 (F) Weight: 197 lbs 05/08/2012 Blood Pressure 1: 128/86 Code: 8480-6 BMI: 33.8 Code: 93346-1 Heart Rate 1: 76 bpm Height: 5'4" Respiratory Rate: 26 bpm SpO2: 95% Tempera ture: 36.1 (C) / 97.0 (F) Weight: 197 lbs 04/22/2012 Blood Pressure 1: 106/64 Code: 8480-6 BMI: 33.8 Code: 16385-3 Heart Rate 1: 70 bpm Height: 5'4" Temperature: 36.1 (C) / 97.0 (F) Weight: 197 lbs 02/13/2012 Blood Pressure 1: 126/82 Code: 8480-6 BMI: 34.7 Code: 60152-6 Heart Rate 1: 64 bpm Height: 5'4" Respiratory Rate: 20 bpm Temperature: 36 .6 (C) / 97.8 (F) Weight: 202 lbs 01/28/2012 Blood Pressure 1: 116/80 Code: 8480-6 BMI: 34.7 Code: 73660-7 Heart Rate 1: 76 bpm Height: 5'4" Respiratory Rate: 20 bpm Temperature: 36 .8 (C) / 98.3 (F) Weight: 202 lbs 12/26/2011 Blood Pressure 1: 132/82 Code: 8480-6 BMI: 36.0 Code: 40301-6 Heart Rate 1: 68 bpm Height: 5'4" Respiratory Rate: 22 bpm Temperature: 36 .7 (C) / 98.0 (F) Weight: 210 lbs 11/14/2011 Blood Pressure 1: 124/80 Code: 8480-6 BMI: 36.4 Code: 50619-7 Heart Rate 1: 76 bpm Height: 5'4" Respiratory Rate: 20 bpm Temperature: 36 .8 (C) / 98.2 (F) Weight: 212 lbs 09/12/2011 Blood Pressure 1: 108/74 Code: 8480-6 BMI: 37.1 Code: 75041-6 Heart Rate 1: 72 bpm Height: 5'4" Respiratory Rate: 20 bpm Temperature: 37 .0 (C) / 98.6 (F) Weight: 216 lbs 08/15/2011 Blood Pressure 1: 122/80 Code: 8480-6 BMI: 36.9 Code: 18226-7 Heart Rate 1: 76 bpm Height: 5'4" Respiratory Rate: 20 bpm Temperature: 36 .2 (C) / 97.1 (F) Weight: 215 lbs 08/09/2011 Blood Pressure 1: 112/78 Code: 8480-6 BMI: 36.9 Code: 77239-3 Heart Rate 1: 68 bpm Height: 5'4" Respiratory Rate: 20 bpm Temperature: 36 .7 (C) / 98.0 (F) Weight: 215 lbs 07/03/2011 Blood Pressure 1: 140/94 Code: 8480-6 BMI: 36.2 Code: 25740-5 Heart Rate 1: 68 bpm Height: 5'4" Temperature: 36.0 (C) / 96.8 (F) Weight: 211 lbs 06/04/2011 Blood Pressure 1: 124/70 Code: 8480-6 BMI: 36.7 Code: 59337-3 Heart Rate 1: 68 bpm Height: 5'4" Respiratory Rate: 20 bpm Temperature: 36 .6 (C) / 97.9 (F) Weight: 214 lbs 05/03/2011 Blood Pressure 1: 130/76 Code: 8480-6 BMI: 36.4 Code: 12071-2 Heart Rate 1: 74 bpm Height: 5'5" Temperature: 36.2 (C) / 97.2 (F) Weight: 219 lbs 04/05/2011 Blood Pressure 1: 124/86 Code: 8480-6 BMI: 35.9 Code: 88317-1 Heart Rate 1: 76 bpm Height: 5'6" Respiratory Rate: 22 bpm Temperature: 36 .3 (C) / 97.3 (F) Weight: 219 lbs 03/08/2011 Blood Pressure 1: 112/78 Code: 8480-6 BMI: 35.1 Code: 56436-7 Heart Rate 1: 80 bpm Height: 5'6" Respiratory Rate: 26 bpm Temperature: 36 .9 (C) / 98.4 (F) Weight: 214 lbs 01/24/2011 Blood Pressure 1: 110/82 Code: 8480-6 BMI: 35.6 Code: 70039-0 Heart Rate 1: 80 bpm Height: 5'6" Temperature: 36.1 (C) / 97.0 (F) Weight: 217 lbs 01/02/2011 Blood Pressure 1: 106/72 Code: 8480-6 BMI: 35.6 Code: 38819-9 Heart Rate 1: 76 bpm Height: 5'6" [...] 1: 120/74 Code: 8480-6 BMI: 35.9 Code: 94617-6 Heart Rate 1: 72 bpm Height: 5'5" Temperature: 36.3 (C) / 97.4 (F) Weight: 216 lbs 09/19/2010 Blood Pressure 1: 124/80 Code: 8480-6 BMI: 35.4 Code: 03850-9 Heart Rate 1: 76 bpm Height: 5'5" [...] 1: 122/78 Code: 8480-6 BMI: 37.4 Code: 87955-8 Heart Rate 1: 84 bpm Height: 5'5" [...] 12/17/2017 follow up 10/30/2017 follow up 10/23/2017 [facility] fwup from [facility] Annual Checkup 09/17/2017 Wellness [...] up 06/04/2016 1mo fwup follow up 05/02/2016 [facility] fwup follow up 04/03/2016 dyspnea 02/29/2016 low grade 99s follow up 02/02/2016 ER fwup diabetes mellitus 01/05/2016 painful urination 12/05/2015 follow up 10/26/2015 ER visit from at [facility] for COPD Exacerbation follow up 10/05/2015 [...] up 10/18/[address] Medrano last w [facility], having increased allergy symptoms. Would like steroid [...] 1 month f/u follow up 12/07/2009 from alf [facility], done with PT--finished about 2wks ago [...] R19.7] Diagnosis: Abdominal bloating[ICD10: R14.0] Belia Reid [facility] CPT- 4: 81089 06/08/2019 ([id number]) OFFICE/OUTPATIENT VISIT EST Diagnosis: Acute febrile illness[ICD10: R50.9] Diagnosis: Colitis[ICD10: K52.9] Belia Reid [facility] CPT-4: 71495 05/26/2019 ([id number]) OFFICE/OUTPATIENT VISIT EST Diagnosis: Chronic obstructive pulmonary disease, unspecified[ICD10: J44.9] Diagnosis: Pulmonary fibrosis[ICD10: J84.10] Diagnosis: Intermittent stridor[ICD10: R06.1] Diagnosis: Muscle weakness[ICD10: M62.81] Belia HSUQUELINE Bushra Mayda ANUSHKA [employer] [facility] CPT-4: 57349 05/13/2019 ([id number]) OFFICE/OUTPATIENT VISIT EST Diagnosis: Stridor[ICD10: R06.1] Diagnosis: COUGH[ICD10: R05] Belia Zacharynilson BRUNSON BushraMayda ANUSHKA [employer] [facility] CPT-4: 94687 05/06/2019 ([id number]) OFFICE/OUTPATIENT VISIT EST Diagnosis: Stridor[ICD10: R06.1] Diagnosis: Muscle, jerky movements (uncontrolled)[ICD10: G25.5] Belia Zacharynilson BRUNSON BushraMayda LUISER [employer] [facility] CPT-4: 89352 04/29/2019 ([id number]) OFFICE/OUTPATIENT VISIT EST Diagnosis: Upper respiratory infection[ICD10: J06.9] Diagnosis: Flank pain[ICD10: R10.9] Diagnosis: Weight gain[ICD10: R63.5] Pattie Floresjuan BRUNSON BushraMayda ZACHARY NDESudhir [employer] [facility] CPT-4: 15055 04/16/2019 ([id number]) OFFICE/OUTPATIENT VISIT EST Diagnosis: Generalized pruritus[ICD10: L29.9] Bleia SALAZAR BushraMayda ZACHARYNDOTONIEL [employer] [facility] CPT-4: 92145 04/08/2019 ([id number]) OFFICE/OUTPATIENT VISIT EST Diagnosis: Acute bursitis of left shoulder[ICD10: M75.52] Diagnosis: Cervicalgia[ICD10: M54.2] Diagnosis: Chest wall pain[ICD10: R07.89] Belia BRUNSON Bushra Mayda ANUSHKA [employer] [facility] CPT-4: 56190 01/22/2019 ([id number]) OFFICE/OUTPATIENT VISIT EST Diagnosis: Abdominal pain[ICD10: R10.9] Diagnosis: Pyelonephritis[ICD10: N12] Pattie Nortonarely Shi RAND ALBERTO [employer] [facility] CPT-4: 82988 01/07/2019 ([id number]) OFFICE/OUTPATIENT VISIT EST Diagnosis: Low back pain[ICD10: M54.5] Diagnosis: Left lumbar radiculopathy[ICD10: M54.16] Diagnosis: Left flank pain[ICD10: R10.9] Diagnosis: Left lower quadrant pain[ICD10: R10.32] Diagnosis: FLU VACCINE[ICD10: Z23] Belia FREDERICK [facility] CPT-4: 14267 12/24/2018 ([id number]) OFFICE/OUTPATIENT VISIT EST Diagnosis: Migraine, unspecified, not intractable, without status migrainosus[ICD10: G43.909] Diagnosis: Fibromyalgia[ICD10: M79.7] Belia DOMINGUEZ [facility] CPT-4: 52085 11/20/2018 ([id number]) OFFICE/OUTPATIENT VISIT EST Diagnosis: Migraine, unspecified, intractable, without status migrainosus[ICD10: G43.919] Diagnosis: Acute sinusitis, unspecified[ICD10: J01.90] Pattie REID DO [facility] CPT-4: 66742 11/04/2018 ([id number]) OFFICE/OUTPATIENT VISIT EST Diagnosis: Pain in left wrist[ICD10: M25.532] Diagnosis: Other dorsalgia[ICD10: M54.89] Pattie REID DO [facility] CPT-4: 01097 09/08/2018 ([id number]) OFFICE/OUTPATIENT VISIT EST Diagnosis: Acute stress reaction[ICD10: F43.0] Diagnosis: Pruritus, unspecified[ICD10: L29.9] 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, 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] Belia REID [facility] CPT-4: 93328 08/20/2018 ([id number]) OFFICE/OUTPATIENT VISIT EST Diagnosis: Hypotension due to drugs[ICD10: I95.2] Diagnosis: Paroxysmal atrial fibrillation[ICD10: I48.0] Diagnosis: Localized edema[ICD10: R60.0] Belia REID [facility] CPT-4: 14208 06/19/2018 ([id number]) OFFICE/OUTPATIENT VISIT EST Diagnosis: Generalized hyperhidrosis[ICD10: R61] Diagnosis: Essential (primary) hypertension[ICD10: I10] Diagnosis: Supraventricular tachycardia[ICD10: I47.1] Belia REID DO [facility] CPT-4: 14983 06/09/2018 ([id number]) OFFICE/OUTPATIENT VISIT EST Diagnosis: Stridor[ICD10: R06.1] Diagnosis: Dependence on supplemental oxygen[ICD10: Z99.81] Diagnosis: Weakness[ICD10: R53.1] Diagnosis: Supraventricular tachycardia[ICD10: I47.1] Belia REID DO [facility] CPT-4: 29294 05/21/2018 ([id number]) OFFICE/OUTPATIENT VISIT EST Diagnosis: Cervical disc disorder with radiculopathy, unspecified cervical region[ICD10: M50.10] Belia REID DO [facility] CPT-4: 57625 04/16/2018 ([id number]) OFFICE/OUTPATIENT VISIT EST Diagnosis: Migraine, unspecified, intractable, without status migrainosus[ICD10: G43.919] Diagnosis: Fibromyalgia[ICD10: M79.7] Pattie DOMINGUEZ [facility] CPT-4: 49297 04/01/2018 ([id number]) NURSE/OUTPATIENT VISIT EST Diagnosis: Hematuria, unspecified[ICD10: R31.9] Diagnosis: Dysuria[ICD10: R30.0] Belia REID DO [facility] CPT-4: 53293 03/17/2018 ([id number]) OFFICE/OUTPATIENT VISIT EST Diagnosis: Erythema intertrigo[ICD10: L30.4] Diagnosis: Chronic obstructive pulmonary disease with (acute) exacerbation[ICD10: J44.1] Diagnosis: Type 2 diabetes mellitus with hyperglycemia[ICD10: E11.65] Belia REID DO [facility] CPT-4: 79655 03/06/2018 ([id number]) OFFICE/OUTPATIENT VISIT EST Diagnosis: Cervicalgia[ICD10: M54.2] Pattiemay AMBRIZ [facility] CPT-4: 97687 02/05/2018 ([id number]) OFFICE/OUTPATIENT VISIT EST Diagnosis: Candidiasis of skin and nail[ICD10: B37.2] Diagnosis: Cervicalgia[ICD10: M54.2] Pattie AMBRIZ [facility] CPT-4: 83870 01/20/2018 ([id number]) OFFICE/OUTPATIENT VISIT EST Diagnosis: Pain in thoracic spine[ICD10: M54.6] Diagnosis: Radiculopathy, thoracic region[ICD10: M54.14] Belia REID [facility] CPT-4: 02971 12/25/2017 ([id number]) OFFICE/OUTPATIENT VISIT EST Diagnosis: Pain in thoracic spine[ICD10: M54.6] Diagnosis: Other muscle spasm[ICD10: M62.838] Diagnosis: FLU VACCINE[ICD10: Z23] Diagnosis: PNEUMOCOCCAL VACCINE[ICD10: Z23] Belia [facility] CPT-4: 41529 12/17/2017 ([id number]) OFFICE/OUTPATIENT VISIT EST Diagnosis: Chronic obstructive pulmonary disease with (acute) exacerbation[ICD10: J44.1] Belia REID [facility] CPT- 4: 40299 10/30/2017 ([id number]) OFFICE/OUTPATIENT VISIT EST Diagnosis: Chronic obstructive pulmonary disease with acute lower respiratory infection[ICD10: J44.0] Diagnosis: Mild intermittent asthma with (acute) exacerbation[ICD10: J45.21] Belia REID [facility] CPT-4: 97636 10/23/2017 ([id number]) NURSE/OUTPATIENT VISIT EST Diagnosis: Migraine, unspecified, not intractable, without status migrainosus[ICD10: G43.909] Belia REID [facility] CPT - 4: 19931 08/26/2017 ([id number]) OFFICE/OUTPATIENT VISIT EST Diagnosis: Urinary tract infection, site not specified[ICD10: N39.0] Diagnosis: Encounter for screening for osteoporosis[ICD10: Z13.820] Diagnosis: Encounter for screening mammogram for malignant neoplasm of breast[ICD10: Z12.31] Diagnosis: Acute bronchitis, unspecified[ICD10: J20.9] Pattie REID DO [facility] CPT-4: 98987 07/19/2017 ([id number]) OFFICE/OUTPATIENT VISIT EST Diagnosis: Rash and other nonspecific skin eruption[ICD10: R21] Pattie REID DO [facility] CPT-4: 22808 05/29/2017 ([id number]) OFFICE/OUTPATIENT VISIT EST Diagnosis: Diarrhea, unspecified[ICD10: R19.7] Diagnosis: Tinea corporis[ICD10: B35.4] Diagnosis: Tinea cruris[ICD10: B35.6] Diagnosis: Migraine, unspecified, not intractable, without status migrainosus[ICD10: G43.909] Belia REID [employer] [facility] CPT - 4: 67385 05/07/2017 ([id number]) OFFICE/OUTPATIENT VISIT EST Diagnosis: Stridor[ICD10: R06.1] Diagnosis: Chronic obstructive pulmonary disease with (acute) exacerbation[ICD10: J44.1] Belia REID [employer] [facility] CPT- 4: 62899 03/18/2017 ([id number]) OFFICE/OUTPATIENT VISIT EST Diagnosis: Type 2 diabetes mellitus with hyperglycemia[ICD10: E11.65] Belia REID [employer] [facility] CPT-4: 95578 02/27/2017 OFFICE/OUTPATIENT VISIT EST Diagnosis: Type 2 diabetes mellitus with hyperglycemia[ICD10: E11.65] Pattie REID DO [facility] CPT-4: 22690 02/22/2017 ([id number]) OFFICE/OUTPATIENT VISIT EST Diagnosis: Urinary tract infection, site not specified[ICD10: N39.0] Diagnosis: Pneumonia, unspecified organism[ICD10: J18.9] Diagnosis: Type 2 diabetes mellitus with hyperglycemia[ICD10: E11.65] Belia REID DO [facility] CPT-4: 95234 01/23/2017 ([id number]) OFFICE/OUTPATIENT VISIT EST Diagnosis: Type 2 diabetes mellitus with hyperglycemia[ICD10: E11.65] Diagnosis: Localized edema[ICD10: R60.0] Diagnosis: PNEUMOCOCCAL VACCINE[ICD10: Z23] Diagnosis: FLU VACCINE[ICD10: Z23] Belia FREDERICK DO [facility] CPT-4: 18104 12/20/2016 OFFICE/OUTPATIENT VISIT EST Diagnosis: Pain in thoracic spine[ICD10: M54.6] Diagnosis: Low back pain[ICD10: M54.5] Diagnosis: Cervicalgia[ICD10: M54.2] Diagnosis: Cough[ICD10: R05] Celeste WaldenRenate BELIA REID [facility] CPT-4: 77501 10/08/2016 ([id number]) OFFICE/OUTPATIENT VISIT EST Diagnosis: Primary insomnia[ICD10: F51.01] Diagnosis: Migraine, unspecified, not intractable, without status migrainosus[ICD10: G43.909] Diagnosis: Type 2 diabetes mellitus with hyperglycemia[ICD10: E11.65] Belia REID [facility] CPT-4: 99079 09/19/2016 ([id number]) OFFICE/OUTPATIENT VISIT EST Diagnosis: Migraine, unspecified, not intractable, without status migrainosus[ICD10: G43.909] Diagnosis: Generalized abdominal pain[ICD10: R10.84] Diagnosis: Cough[ICD10: R05] Belia REID DO [facility] CPT-4: 48658 08/20/2016 ([id number]) OFFICE/OUTPATIENT VISIT EST Diagnosis: Chronic obstructive pulmonary disease, unspecified[ICD10: J44.9] Diagnosis: Stridor[ICD10: R06.1] Belia REID DO [facility] CPT-4: 43141 06/19/2016 ([id number]) OFFICE/OUTPATIENT VISIT EST Diagnosis: Chronic obstructive pulmonary disease, unspecified[ICD10: J44.9] Diagnosis: Personal history of urinary (tract) infections[ICD10: Z87.440] Belia REID [facility] CPT-4: 03623 06/04/2016 ([id number]) OFFICE/OUTPATIENT VISIT EST Diagnosis: Stridor[ICD10: R06.1] Diagnosis: Chronic obstructive pulmonary disease with acute lower respiratory infection[ICD10: J44.0] Diagnosis: Other specified diseases of intestine[ICD10: K63.89] Diagnosis: Cystitis, unspecified without hematuria[ICD10: N30.90] Belia REID [employer] [facility] CPT-4: 19671 05/02/2016 ([id number]) OFFICE/OUTPATIENT VISIT EST Diagnosis: Fibromyalgia[ICD10: M79.7] Diagnosis: Urinary tract infection, site not specified[ICD10: N39.0] Belia REID DO [facility] CPT-4: 99941 04/03/2016 ([id number]) OFFICE/OUTPATIENT VISIT EST Diagnosis: Unspecified asthma, uncomplicated[ICD10: J45.909] Diagnosis: Cough[ICD10: R05] Lidia REID [employer] [facility] T-4: 08914 02/29/2016 ([id number]) OFFICE/OUTPATIENT VISIT EST Diagnosis: Migraine, unspecified, intractable, without status migrainosus[ICD10: G43.919] Diagnosis: Urinary tract infection, site not specified[ICD10: N39.0] Belia REID [employer] [facility] CPT-4: 54392 02/02/2016 ([id number]) OFFICE/OUTPATIENT VISIT EST Diagnosis: Urinary tract infection, site not specified[ICD10: N39.0] Diagnosis: Unspecified abdominal pain[ICD10: R10.9] Diagnosis: Pain in thoracic spine[ICD10: M54.6] Diagnosis: Type 2 diabetes mellitus with diabetic neuropathic arthropathy[ICD10: E11.610] Belia REID [employer] [facility] CPT-4: 27450 12/05/2015 ([id number]) OFFICE/OUTPATIENT VISIT EST Diagnosis: Chronic obstructive pulmonary disease with (acute) exacerbation[ICD10: J44.1] Diagnosis: Migraine, unspecified, not intractable, without status migrainosus[ICD10: G43.909] Lidia REID [employer] [facility] CPT -4: 06941 10/26/2015 ([id number]) OFFICE/OUTPATIENT VISIT EST Diagnosis: Hematuria, unspecified[ICD10: R31.9] Diagnosis: Urinary tract infection, site not specified[ICD10: N39.0] Lidia HSUQUELINE Yuridia REID [employer] [facility] CPT-4: 47931 10/05/2015 OFFICE/OUTPATIENT VISIT EST Diagnosis: Chronic obstructive pulmonary disease, unspecified[ICD10: J44.9] Diagnosis: Muscle weakness (generalized)[ICD10: M62.81] Diagnosis: Polyneuropathy, unspecified[ICD10: G62.9] Diagnosis: Other intervertebral disc degeneration, 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] Diagnosis: Fibromyalgia[ICD10: M79.7] Belia HSUQUELINE Yuridia DOMINGUEZ [employer] [facility] CPT-4: 26135 09/15/2015 ([id number]) OFFICE/OUTPATIENT VISIT EST Diagnosis: Disorientation, unspecified[ICD10: R41.0] Diagnosis: Headache[ICD10: R51] Diagnosis: Paresthesia of skin[ICD10: R20.2] Lidia Hwang KOFFI Paredes BushraMayda ANUSHKA [employer] [facility] CPT-4: 61167 08/24/2015 ([id number]) OFFICE/OUTPATIENT VISIT EST Diagnosis: Type 2 diabetes mellitus with hyperglycemia[ICD10: E11.65] Diagnosis: Chronic obstructive pulmonary disease with acute lower respiratory infection[ICD10: J44.0] Belia Anushka CORNELLLINE BushraMayda ANUSHKA [employer] [facility] CPT-4: 76702 07/05/2015 ([id number]) OFFICE/OUTPATIENT VISIT EST Diagnosis: Mild intermittent asthma with (acute) exacerbation[ICD10: J45.21] Diagnosis: Chronic obstructive pulmonary disease, unspecified[ICD10: J44.9] Belia Anushka BELIA BushraMayda ANUSHKA [employer] [facility] CPT-4: 70769 06/06/2015 ([id number]) OFFICE/OUTPATIENT VISIT EST Diagnosis: Chronic obstructive pulmonary disease with (acute) exacerbation[ICD10: J44.1] Lidianick Hwang BELIA BushraMayda ANUSHKA [employer] [facility] CPT- 4: 31580 05/23/2015 ([id number]) OFFICE/OUTPATIENT VISIT EST Diagnosis: Type 2 diabetes mellitus with hyperglycemia[ICD10: E11.65] Diagnosis: Functional dyspepsia[ICD10: K30] Belia BRUNSON Bush[facility]da [facility] CPT-4: 60202 05/05/2015 ([id number]) OFFICE/OUTPATIENT VISIT EST Diagnosis: Type 2 diabetes mellitus with hyperglycemia[ICD10: E11.65] Diagnosis: Glycosuria[ICD10: R81] Diagnosis: Urinary tract infection, site not specified[ICD10: N39.0] [facility]ia [facility] CPT-4: 37560 03/30/2015 ([id number]) OFFICE/OUTPATIENT VISIT EST Diagnosis: Generalized abdominal pain[ICD10: R10.84] Diagnosis: Diarrhea, unspecified[ICD10: R19.7] Diagnosis: Urinary tract infection, site not specified[ICD10: N39.0] Diagnosis: Gastro-esophageal reflux disease without esophagitis[ICD10: K21.9] Belia [facility] CPT-4: 47517 02/03/2015 ([id number]) OFFICE/OUTPATIENT VISIT EST Diagnosis: Other specified noninflammatory disorders of vagina[ICD10: N89.8] Diagnosis: Follicular disorder, unspecified[ICD10: L73.9] Diagnosis: Functional dyspepsia[ICD10: K30] Diagnosis: FLU VACCINE[ICD10: Z23] Belia [facility] CPT-4: 61834 12/29/2014 ([id number]) OFFICE/OUTPATIENT VISIT EST 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] Diagnosis: RESTLESS LEGS SYNDROME[ICD9: 333.94] Diagnosis: MIGRAINE NOS/NOT INTRCBL[ICD9: 346.90] Belai Zacharybeckyotoniel Shi [facility] CPT-[facility]: 64118 09/02/2014 ([id number]) OFFICE/OUTPATIENT VISIT EST Diagnosis: Cervical radiculopathy[ICD9: 723.4] Diagnosis: Cervicalgia[ICD9: 723.1] Diagnosis: Degenerative disc disease, cervical[ICD9: 722.4] 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I[ICD9: 250.00] Beliahanna [facility] CPT-4: 81223 04/01/2014 OFFICE/OUTPATIENT VISIT EST Diagnosis: Reactive airway disease[ICD9: 493.90] Belia REID DO [facility] CPT-4: 91941 03/16/2014 ([id number]) OFFICE/OUTPATIENT VISIT EST Diagnosis: BRONCHITIS, ACUTE[ICD9: 466.0] Diagnosis: Reactive airway disease[ICD9: 493.90] Belia REID DO [facility] CPT-4: 60550 03/09/2014 OFFICE/OUTPATIENT VISIT EST Diagnosis: BRONCHITIS, ACUTE[ICD9: 466.0] Diagnosis: WHEEZING[ICD9: 786.07] Huong Peguero [facility] CPT-4: 58483 03/03/2014 OFFICE/OUTPATIENT VISIT EST Diagnosis: BRONCHITIS, ACUTE[ICD9: 466.0] Diagnosis: WHEEZING[ICD9: 786.07] Huong Peguero [facility] CPT-4: 89303 03/01/2014 ([id number]) OFFICE/OUTPATIENT VISIT EST Diagnosis: GERD[ICD9: 530.81] Diagnosis: ARTHRALGIA-MULTIPLE SITES[ICD9: 719.49] Diagnosis: LUMB/LUMBOSAC DISC DEGEN[ICD9: 722.52] Diagnosis: - I - FIBROMYALGIA[ICD9: 729.1] Belia CORNELLLINE BushraMayda ANUSHKA [facility] CPT-4: 90033 02/09/2014 ([id number]) OFFICE/OUTPATIENT VISIT EST Diagnosis: Peptic ulcer disease[ICD9: 533.90] Diagnosis: RESTLESS LEGS SYNDROME[ICD9: 333.94] Diagnosis: Neuropathy[ICD9: 355.9] Belia Zacharynilson HSUBELIA Yuridia FREDERICK [facility] CPT-4: 73548 12/23/2013 ([id number]) OFFICE/OUTPATIENT VISIT EST Diagnosis: URINARY TRACT INFECTION[ICD9: 599.0] Beliahanna ARNOLD BushraMayda ANUSHKA [facility] CPT-4: 24591 10/30/2013 ([id number]) OFFICE/OUTPATIENT VISIT EST Diagnosis: Flank pain[ICD9: 789.00] Belia BRUNSON BushraMayda KIESHA VIRGILIO [facility] CPT-4: 64111 10/21/2013 ([id number]) OFFICE/OUTPATIENT VISIT EST Diagnosis: INFLAMED SEBORR KERATOS[ICD9: 702.11] Diagnosis: Brachioradial pruritus[ICD9: 698.9] Diagnosis: ASTHMA NOS[ICD9: 493.90] Belia BRUNSON BushraMayda KIESHA [facility] CPT-4: 91363 10/05/2013 ([id number]) OFFICE/OUTPATIENT VISIT EST Diagnosis: HYPERTENSION[ICD9: 401.9] Diagnosis: - I - FIBROMYALGIA[ICD9: 729.1] Diagnosis: DIZZINESS/VERTIGO[ICD9: 780.4] Diagnosis: MIGRAINE NOS/NOT INTRCBL[ICD9: 346.90] Diagnosis: Diabetic peripheral neuropathy[ICD9: 250.60] Diagnosis: Flank pain[ICD9: 789.00] Belia Shi KIESHA [facility] CPT-4: 74919 08/04/2013 ([id number]) OFFICE/OUTPATIENT VISIT EST Diagnosis: ALLERGIC RHINITIS[ICD9: 477.9] Belia [facility]ara [facility] C[facility]: 21827 07/13/2013 OFFICE/OUTPATIENT VISIT EST Diagnosis: URINARY TRACT INFECTION[ICD9: 599.0] [facility]ong [facility]: 14878 07/03/2013 OFFICE/OUTPATIENT VISIT EST Diagnosis: HYPERTENSION[ICD9: 401.9] Diagnosis: URINARY TRACT INFECTION[ICD9: 599.0] Diagnosis: BACKACHE[ICD9: 724.5] Diagnosis: URINARY INCONTINENCE[ICD9: 788.30] Huong [facility] CPT-[facility]: 50504 05/27/2013 ([id number]) OFFICE/OUTPATIENT VISIT EST Diagnosis: Flank pain[ICD9: 789.00] Belia BRUNSON BushraMayda KIESHA [facility] CPT-4: 07756 05/25/2013 ([id number]) OFFICE/OUTPATIENT VISIT EST Diagnosis: B-COMPLEX DEFIC NEC[ICD9: 266.2] [facility] C[facility]: 23304 05/04/2013 ([id number]) OFFICE/OUTPATIENT VISIT EST Diagnosis: ALLERGIC RHINITIS[ICD9: 477.9] Diagnosis: Vitamin B12 deficiency[ICD9: 266.2] Belia Humphriesnilson ARACELISROBERTOFelicita DONNA Yuridia REID [facility] CPT-4: 30865 04/17/2013 ([id number]) OFFICE/OUTPATIENT VISIT EST 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I[ICD9: 250.00] Diagnosis: URINARY TRACT INFECTION[ICD9: 599.0] Diagnosis: DIZZINESS/VERTIGO[ICD9: 780.4] Diagnosis: DIARRHEA[ICD9: 787.91] Belia Humphriesnilson BRUNSON BushraMayda RALF Peguero [facility] CPT-4: 37432 04/06/2013 ([id number]) OFFICE/OUTPATIENT VISIT EST Diagnosis: URINARY TRACT INFECTION[ICD9: 599.0] Diagnosis: URINARY RETENTION[ICD9: 788.20] Belia Zacharybeckyotoniel HSUBELIA BushraMayda ANUSHKA [facility] CPT-4: 68227 11/10/2012 ([id number]) OFFICE/OUTPATIENT VISIT EST Diagnosis: TACHYCARDIA[ICD9: 785.0] Diagnosis: SYNCOPE AND COLLAPSE[ICD9: 780.2] Diagnosis: CONSCIOUSNS ALTERAT NEC[ICD9: 780.09] Belia HSUPAUL LUBNA BushraMayda ANUSHKA [facility] CPT-4: 21874 09/02/2012 OFFICE/OUTPATIENT VISIT EST Diagnosis: TACHYCARDIA[ICD9: 785.0] Diagnosis: SYNCOPE AND COLLAPSE[ICD9: 780.2] Beliahanna Paredes BushraMayda ANUSHKA [facility] CPT-4: 76795 08/04/2012 ([id number]) OFFICE/OUTPATIENT VISIT EST Diagnosis: Loss of consciousness[ICD9: 780.09] Diagnosis: Tachycardia[ICD9: 785.0] Diagnosis: MALAISE AND FATIGUE[ICD9: 780.79] Belia Paredes BushraMayda ANUSHKA [facility] CPT-4: 32434 07/21/2012 ([id number]) OFFICE/OUTPATIENT VISIT EST Diagnosis: BRONCHITIS, ACUTE[ICD9: 466.0] Diagnosis: ASTHMA NOS[ICD9: 493.90] Belia Shi KIESHARegino POOLE [facility] CPT-4: 03172 07/02/2012 ([id number]) OFFICE/OUTPATIENT VISIT EST Diagnosis: CEPHALGIA[ICD9: 784.0] Belia Peguero [facility] CPT-4: 45632 06/25/2012 ([id number]) OFFICE/OUTPATIENT VISIT EST Diagnosis: GERD[ICD9: 530.81] Diagnosis: DIARRHEA[ICD9: 787.91] Diagnosis: URINARY TRACT INFECTION[ICD9: 599.0] Diagnosis: ASTHMA NOS[ICD9: 493.90] Diagnosis: ALLERGIC RHINITIS[ICD9: 477.9] Belia Tomlinson Mayda ANUSHAK [employer] [facility] CPT-4: 71043 06/24/2012 ([id number]) OFFICE/OUTPATIENT VISIT EST Diagnosis: MIGRAINE NOS/NOT INTRCBL[ICD9: 346.90] Diagnosis: TREMOR NEC[ICD9: 333.1] Diagnosis: CHRONIC PAIN SYNDROME[ICD9: 338.4] Belia BASS MARIE BushraMayda ANUSHKA [employer] [facility] CPT-4: 34856 05/20/2012 ([id number]) OFFICE/OUTPATIENT VISIT EST Diagnosis: DIZZINESS/VERTIGO[ICD9: 780.4] Diagnosis: PALPITATIONS[ICD9: 785.1] Diagnosis: TREMOR NEC[ICD9: 333.1] Diagnosis: ANXIETY STATE NOS[ICD9: 300.00] Diagnosis: POSTTRAUMATIC STRESS DISORDER[ICD9: 309.81] Belia CORNELLLINE BushraMayda ANUSHKA [facility] CPT-4: 43929 05/08/2012 ([id number]) OFFICE/OUTPATIENT VISIT EST Diagnosis: MIGRAINE NOS/NOT INTRCBL[ICD9: 346.90] Diagnosis: FIBROMYALGIA[ICD9: 729.1] Diagnosis: SYNCOPE AND COLLAPSE[ICD9: 780.2] Diagnosis: Diabetic peripheral neuropathy[ICD9: 250.60] Belia CORNELLLINE BushraMayda ANUSHKA [employer] [facility] CPT-4: 70223 04/22/2012 OFFICE/OUTPATIENT VISIT EST Diagnosis: ROTATOR CUFF DIS NEC[ICD9: 726.19] Diagnosis: JOINT PAIN-SHLDER[ICD9: 719.41] Diagnosis: DYSPEPSIA[ICD9: 536.8] Belializ Reid BELIA BushraMayda RALF Peguero [employer] [facility] CPT-4: 76316 02/13/2012 ([id number]) OFFICE/OUTPATIENT VISIT EST Diagnosis: MIGRAINE NOS/NOT INTRCBL[ICD9: 346.90] Diagnosis: GERD[ICD9: 530.81] Diagnosis: DYSPEPSIA[ICD9: 536.8] Belia Peguero [facility] CPT-4: 65942 01/28/2012 OFFICE/OUTPATIENT VISIT EST Diagnosis: CEPHALGIA[ICD9: 784.0] Diagnosis: MIGRAINE NOS/NOT INTRCBL[ICD9: 346.90] Diagnosis: GERD[ICD9: 530.81] Diagnosis: INSOMNIA NOS[ICD9: 780.52] Belia CORNELLLINE Yuridia DOMINGUEZ [facility] CPT-4: 44231 12/26/2011 ([id number]) OFFICE/OUTPATIENT VISIT EST Diagnosis: CEPHALGIA[ICD9: 784.0] Diagnosis: MIGRAINE NOS/NOT INTRCBL[ICD9: 346.90] Diagnosis: MALAISE AND FATIGUE[ICD9: 780.79] Diagnosis: FIBROMYALGIA[ICD9: 729.1] Diagnosis: ALLERGIC RHINITIS[ICD9: 477.9] Belia CORNELLLINE Bushra Mayda ANUSHKA [facility] CPT-4: 97267 11/14/2011 ([id number]) OFFICE/OUTPATIENT VISIT EST Diagnosis: MALAISE AND FATIGUE[ICD9: 780.79] Diagnosis: MUSCLE WEAKNESS-GENERAL[ICD9: 728.87] Diagnosis: MIGRAINE NOS/NOT INTRCBL[ICD9: 346.90] Diagnosis: JOINT PAIN-SHLDER[ICD9: 719.41] Belia Anushka CORNELLLINE BushraMayda ANUSHKA [facility] CPT-4: 58166 09/12/2011 ([id number]) OFFICE/OUTPATIENT VISIT EST Diagnosis: CONCUSSION[ICD9: 850.9] Diagnosis: Ataxia[ICD9: 781.3] Diagnosis: DIZZINESS/VERTIGO[ICD9: 780.4] Belia CORNELLLINE Bushra Mayda ANUSHKA [facility] CPT-4: 89633 08/15/2011 ([id number]) OFFICE/OUTPATIENT VISIT EST Diagnosis: THROMBOPHLEBITIS[ICD9: 451.9] Diagnosis: Subacromial bursitis[ICD9: 726.19] Diagnosis: ALLERGIC RHINITIS[ICD9: 477.9] Diagnosis: Lipoma[ICD9: 214.9] Belia REID [facility] CPT-4: 05251 08/09/2011 ([id number]) OFFICE/OUTPATIENT VISIT EST Diagnosis: THROMBOPHLEBITIS[ICD9: 451.9] Diagnosis: Arm pain[ICD9: 729.5] Diagnosis: Clostridium difficile colitis[ICD9: 008.45] Diagnosis: URINARY TRACT INFECTION[ICD9: 599.0] [facility] CPT[facility]: 65906 07/03/2011 ([id number]) OFFICE/OUTPATIENT VISIT EST Diagnosis: ARTHRALGIA-MULTIPLE SITES[ICD9: 719.49] Diagnosis: Muscle cramp[ICD9: 729.82] Diagnosis: INSOMNIA NOS[ICD9: 780.52] [facility]: 46905 06/04/2011 OFFICE/OUTPATIENT VISIT EST Diagnosis: Headache[ICD9: 784.0] Diagnosis: Allergic rhinitis[ICD9: 477.9] Belia REID [facility] CPT-4: 30771 05/03/2011 OFFICE/OUTPATIENT VISIT EST Diagnosis: LUMB/LUMBOSAC DISC DEGEN[ICD9: 722.52] Diagnosis: MIGRAINE NOS/NOT INTRCBL[ICD9: 346.90] Diagnosis: CHRONIC PAIN SYNDROME[ICD9: 338.4] Diagnosis: RESTLESS LEGS SYNDROME[ICD9: 333.94] Belia [facility] CPT-4: 79730 04/05/2011 OFFICE/OUTPATIENT VISIT EST Diagnosis: MIGRAINE NOS/NOT INTRCBL[ICD9: 346.90] Diagnosis: GERD[ICD9: 530.81] Belia REID [facility] CPT-4: 07623 03/08/2011 OFFICE/OUTPATIENT VISIT EST Diagnosis: URINARY TRACT INFECTION[ICD9: 599.0] Diagnosis: Vertigo[ICD9: 780.4] Diagnosis: GERD[ICD9: 530.81] Belia REID [facility] CPT-4: 17973 01/24/2011 OFFICE/OUTPATIENT VISIT EST Diagnosis: Hypotension[ICD9: 458.9] Diagnosis: Syncopal episodes[ICD9: 780.2] Diagnosis: MIGRAINE NOS/NOT INTRCBL[ICD9: 346.90] Diagnosis: MALAISE AND FATIGUE[ICD9: 780.79] Belia Shi ZACHARYNDER DO [facility] CPT-4: 89619 01/02/2011 OFFICE/OUTPATIENT VISIT EST Diagnosis: Tinea cruris[ICD9: 110.3] Diagnosis: Intertrigo[ICD9: 695.89] Diagnosis: MIGRAINE NOS/NOT INTRCBL[ICD9: 346.90] Belia COKER SMayda ZACHARYNDER [facility] CPT-4: 15701 12/07/2010 OFFICE/OUTPATIENT VISIT EST Diagnosis: PALPITATIONS[ICD9: 785.1] Diagnosis: ANXIETY STATE NOS[ICD9: 300.00] Belia Shi ZACHARYNDER [facility] CPT-4: 37558 11/16/2010 OFFICE/OUTPATIENT VISIT EST Diagnosis: URINARY TRACT INFECTION[ICD9: 599.0] Diagnosis: MIGRAINE NOS/NOT INTRCBL[ICD9: 346.90] Iraida COKER SMayda ZACHARYNDER [facility] CPT-4: 61222 11/02/2010 OFFICE/OUTPATIENT VISIT EST Diagnosis: ALLERGIC RHINITIS[ICD9: 477.9] Diagnosis: ANXIETY STATE NOS[ICD9: 300.00] Belia SMITHER DO [facility] CPT-4: 80735 10/18/2010 OFFICE/OUTPATIENT VISIT EST Belia HUMPHRIES NDER DO [facility] CPT- 4: 50603 09/19/2010 OFFICE/OUTPATIENT VISIT EST Belia HUMPHRIES NDER DO [facility] CPT- 4: 38037 09/06/2010 ([id number]) OFFICE/OUTPATIENT VISIT EST Belia COKER SMayda ORENDER DO [facility] CPT-4: 42136 08/10/2010 ([id number]) OFFICE/OUTPATIENT VISIT EST Belia COKER SMayda [facility]END[facility] DO [facility] CPT-4: 30908 05/11/2010 ([id number]) OFFICE/OUTPATIENT VISIT, EST Belia [facility] CPT-4: 28076 04/06/2010 ([id number]) OFFICE/OUTPATIENT VISIT, EST Belia [facility] CPT-4: 58769 02/09/2010 ([id number]) OFFICE/OUTPATIENT VISIT, EST Belia [facility] CPT-4: 09764 01/05/2010 ([id number]) OFFICE/OUTPATIENT VISIT, EST Belia [facility] CPT-4: 07509 12/07/2009 ([id number]) OFFICE/OUTPATIENT VISIT, EST Belia [facility] CPT-4: 63453 11/08/2009 ([id number]) OFFICE/OUTPATIENT VISIT, EST Belia MEJIALINE [facility] CPT-4: 33603 10/24/2009 ([id number]) OFFICE/OUTPATIENT VISIT, EST Belia [facility] CPT-4: 96649 07/25/2009 ([id number]) OFFICE/OUTPATIENT VISIT, EST Belia [facility] CPT-4: 37663 05/26/2009 Plan of Care Planned Activity Notes [...] R50.9 05/26/2019 App[facility]ment: [facility] [phone] [id number] [facility] 05/26/2019 Appointment: Pattie Sotomayor [address] [place], [place] [phone] US RESCHEDULED 05/18/2019 Visit Diagnosis Plan: Chronic obstructive pulmonary di sease, unspecified Discussion: Recommend pulmonary rehab Patient states she never went to pulmonary rehab due to cost as well as transportation issues Finish trelagy Stop singulair Decrease hydroxyzine to 25mg po q HS Fwup [address] scan of Chest results discussed ICD-9 : 496 ICD-10 : J44.9 05/13/2019 Appointment: Belia Reid WPtel: [address] [place], [place] [phone] Hospital Follow Up 05/13/2019 Visit Diagnosis Plan: COUGH Discussion: Check CT scan of chest ICD-9 : 786.2 ICD-10 : R05 05/06/2019 Visit Diagnosis Plan: Stridor Discussion: Add Trelagy 1 p daily Add Singulair May need to see new branch or department chief librarian ICD-9 : 786.1 ICD-10 : R06.1 05/06/2019 Appointment: Belia Reid WPtel: [address] [place], [place] [phone] FOLLOW UP 05/06/2019 Patient Education: Singulair- [employer] Coupon [id number] [email or web address]/samplemd/resources/getResource/61/[email or web address] Completed 05/06/2019 Appointment: Belia Reid WPtel: [address] [place], [place] [phone] US RESCHEDULED 04/30/2019 Visit Diagnosis Plan: Stridor [...] G25.5 04/29/2019 Appointment: [facility] Reid [facility]el[facility] [phone] [id number] [facility] Up 04/29/2019 Patient Education: Valium- [employer] Coupon [id number] https://www.[employer]/sampleCreditPoint Software/resources/getResource/61/[email or web address] Completed 04/29/2019 Visit Diagnosis Plan: Flank pain [...] ICD-10 : R63.5 04/16/2019 Appointment: Pattie Sotomayor [address] [place], [place] [id number] 04/16/2019 Patient Education: cyclobenzaprine- [employer] Coupon [id number] https://www.[employer]/sampleCreditPoint Software/resources/getResource/61/[email or web address] Completed 04/16/2019 Visit Diagnosis Plan: Migraine, unspecif ied, not intractable, without status migrainosus Discussion: Increase gabapentin to 600mg po BID ICD-9 : 346.90 ICD-10 : G43.909 04/08/2019 Visit Diagnosis Plan: Generalized pruritus Discussion: Hydroxyzine 25mg po TID for itching and anxiety ICD-9 : 698.9 ICD-10 : L29.9 04/08/2019 Appointment: [facility]el[facility] [phone] [id number] [facility] 04/08/2019 Visit Diagnosis Plan: [...] : M75.52 01/22/2019 Appointment: Belia Reid WPtel: [address] [place] [address] Follow Up 01/22/2019 Visit Diagnosis Plan: Abdominal pain Discussion: urine culture sent to assess for any infection. rocephin given in office to cover for pyelonephritis. instructed to push fluids. call office with any new or worsening symptoms. ICD-9 : 789.00 ICD-10 : R10.9 01/07/2019 Appointment: Pattie Sotomayor [address] [place] [address] ACUTE ILLNESS 01/07/2019 Visit Diagnosis Plan: Low back pain Discussion: Stat C T of abdomen/pelvis now ICD-9 : 724.2 ICD-10 : M54.5 12/24/2018 Appointment: Belia Reid WPtel: [address] [place] [address] FOLLOW UP 12/24/2018 Visit Diagnosis Plan: Migraine, [...] : M79.7 11/20/2018 Appointment: Belia Reid WPtel: [address] [place] [address] ACUTE ILLNESS 11/20/2018 Patient Education: [email or web address] [employer] Coupon [id number] [email or web address]/samplemd/resources/[email or web address] Completed 11/20/2018 Visit Diagnosis Plan: Migraine, unspecif ied, intractable, without status migrainosus Discussion: toradol/phenergan given in o ffice (60 mg toradol, 12.5 mg phenergan). instructed to call if no improvement or worsening. instructed to follow up with skin piler since headaches are occurring more frequently to make sure vision is not the cause. ICD-9 : 346.91 ICD-10 : G43.919 11/04/2018 Visit Diagnosis Plan: Acute sinusitis, unspecified Dis cussion: zithromax prescribed to cover for sinus infection due to length of symptoms and clinincal s/s. ICD-9 : 461.9 ICD-10 : J01.90 11/04/2018 Appointment: Pattie Sotomayor [address] [place], [place] [id number] ACUTE ILLNESS 11/04/2018 Appointment: Belia Reid WPtel: [phone] [id number] US CANCELED 09/24/2018 Visit Diagnosis Plan: Type 2 diabetes me llitus with diabetic neuropathy, unspecified Discussion: Retry gabapentin 300mg po q HS ICD-9 : 250.60 ICD-10 : E11.40 09/18/2018 Visit Diagnosis Plan: Vitamin D deficiency, unspecifie d Discussion: Increase Vitamin D3 to 10,000 u daily ICD-9 : 268.9 ICD-10 : E55.9 09/18/2018 Visit Diagnosis Plan: Encounter for [facility] adult medical examination without abnormal findings [...] I10 09/18/2018 Appointment: Belia Reid WPtel: [phone] [facility] Annual Well Visit 09/18/2018 Patient Education: gabapentin- OptimizeRX Coupon [id number] https://www.[employer]/samplemd/resources/getResource/61/3f37ij43-2js3-7qpt-i9 Completed 09/18/2018 Visit Diagnosis Plan: Pain in [...] ICD-10 : M54.89 09/08/2018 Appointment: Pattie Sotomayor [address] [place] [address] ACUTE ILLNESS 09/08/2018 Patient Education: prednisone- OptimizeRX Coupon [phone] https://www.[employer]/SECU4/resources/getResource/61/7k2vy85e-8496-07f2-yj Completed 09/08/2018 Visit Diagnosis Plan: Pruritus, unspecified [...] E10.9 08/20/2018 Appointment: Belia Reid WPtel: [phone] ACUTE ILLNESS 08/20/2018 Patient Education: Lexapro- OptimizeRX Coupon [id number] Completed 08/20/2018 Patient Education: hydroxyzine HCl- [employer] Coupon [id number] Completed 08/20/2018 Care Plan: MAMMOGRAM SCREENING LOINC : 2 6347-5 Pending 08/20/2018 Visit Diagnosis Plan: Paroxysmal atrial fibrillation D iscussion: Discuss eliquis need with cardiology at [facility] due to cost ICD-9 : 427.31 ICD-10 : I48.0 06/19/2018 Visit Diagnosis Plan: Hypotension due to drugs Discuss ion: Discussed decreasing cardizem dose due to low BP and edema but sees cardiology next week Follow Up: 1 months ICD-9 : 458.8 ICD-10 : I95.2 06/19/2018 Appointment: Belia Reid WPtel: [address] [place], [place] [phone] [place] FOLLOW UP 06/19/2018 Visit Diagnosis Plan: [...] : R61 06/09/2018 Appointment: Belia Reid WPtel: [address] [place], [place] [phone] [place] FOLLOW UP 06/09/2018 Care Plan: CHEST X-RAY 2VW FRONTAL&LATL LOINC : 12033-4 Pending 05/26/2018 Visit Diagnosis Plan: Supraventricular tachycardia [...] : R53.1 05/21/2018 Appointment: Belia Reid WPtel: [address] [place] [address] Hospital Follow Up 05/21/2018 Visit Diagnosis Plan: Cervical disc diso rder with radiculopathy, unspecified cervical region Discussion: Scheduled for surgery on 06/02 10/[address] Faulkner ICD-9 : 722.0 ICD-10 : M50.10 04/16/2018 Appointment: Belia Reid WPtel: [address] [place] [address] Follow Up 04/16/2018 Visit Diagnosis Plan: Migraine, [...] ICD-10 : M79.7 04/01/2018 Appointment: Pattie Sotomayor [address] [place] [address] ACUTE ILLNESS 04/01/2018 Appointment: Belia Reid WPtel: [address] [place] [address] UA 03/17/2018 Visit Diagnosis Plan: Erythema intertrigo [...] : J44.1 03/06/2018 Appointment: Belia Reidtel: [phone] [facility] Hospital Follow Up 03/06/2018 Visit Diagnosis Plan: Cervicalgia Discussion: spoke wi th dr. reid about patient. increased gabapentin to bid and started on celebrex bid. tramadrol rx written out to take prn. keep scheduled appt next week for myelogram. ICD-9 : 723.1 ICD-10 : M54.2 02/05/2018 Appointment: Pattie Sotomayor [address] [place] [address] ACUTE ILLNESS 02/05/2018 Care Plan: X-RAY EXAM NECK SPINE 4/5VWS cervical LOINC : 32211-2 Pending 01/21/2018 Visit Diagnosis Plan: Candidiasis of [...] ICD-10 : M54.2 01/20/2018 Appointment: Pattie Sotomayor [address] [place] [address] ACUTE ILLNESS 01/20/2018 Visit Diagnosis Plan: Pain in thoracic spine Discussio n: Proceed with CT scan of thoracic spine Will likely need PT ICD-9 : 724.1 ICD-10 : M54.6 12/25/2017 Appointment: [facility]Ptel[phone] [facility] 12/25/2017 Care Plan: CT THORAX W/O DYE LOINC : 473 66-0 Pending 12/25/2017 Visit Diagnosis Plan: Pain in thoracic spine Discussio n: Stretches Alternated heat/ice Topical aspercreme with lidocaine Flexeril Recheck 1 week Flu and Pneumovax given ICD-9 : 724.1 ICD-10 : M54.6 12/17/2017 Appointment: Belia Reid WPtel: [address] [place] [address] ACUTE ILLNESS 12/17/2017 Patient Education: Patient Medication [...] : J44.1 10/30/2017 Appointment: Belia Reid WPtel: [address] [place] [address] FOLLOW UP 10/30/2017 Patient Education: Patient Medication Summary Completed 10/30/2017 Visit Diagnosis Plan: Chronic obstructiv e pulmonary disease with acute lower respiratory infection Discussion: Continue SVNs with albuterol q4hrs Add Trelagy 1 inhalation daily Finish steroids Increase water intake Follow Up: 1 weeks ICD-9 : 496 ICD-10 : J44.0 10/23/2017 Appointment: Belia Reid WPtel: [address] [place] [address] WORK IN 10/23/2017 Patient Education: Patient Medication Summary Completed 10/23/2017 Appointment: Belia Reidtel: [address] [place] [address] NO SHOW 10/16/2017 Visit Diagnosis Plan: Confusional [...] E11.65 09/17/2017 Appointment: Belia Reid WPtel: [phone] [facility] [place] Annual Well Visit 09/17/2017 Patient Education: Patient Medication Summary Completed 09/17/2017 Appointment: Belia Reid WPtel: [phone] [facility] US INJECTION 08/26/2017 Patient Education: Patient Medication Summary Completed 08/26/2017 Appointment: Belia Reid WPtel: [phone] [facility] US CANCELED 07/31/2017 Visit Diagnosis Plan: Encounter [...] ICD-10 : J20.9 07/19/2017 Appointment: Pattie Sotomayor [address] [place] [address] ACUTE ILLNESS 07/19/2017 Patient Education: Patient Medication Summary Completed 07/19/2017 Care Plan: MAMMOGRAM SCREENING LOINC : 2 6347-5 Pending 07/19/2017 Patient Education: Patient Medication Summary Completed 06/05/2017 Care Plan: LIPID PANEL LOINC : 65713-7 Pending 06/05/2017 Care Plan: A1C HPLC LOINC : 64153-7 Pending 06/05/2017 Visit Diagnosis Plan: Rash and [...] ICD-10 : R21 05/29/2017 Appointment: Pattie Sotomayor [address] [place] [address] FOLLOW UP 05/29/2017 Patient Education: Patient Medication Summary Completed 05/29/2017 Visit Diagnosis Plan: Tinea corporis Discussion: Diflu can and topical nystatin Follow Up: 2 weeks ICD-9 : 110.5 ICD-10 : B35.4 05/07/2017 Visit Diagnosis Plan: Diarrhea, unspecified Discussion : Diflucan Cholestyramine Recheck 2weeks ICD-9 : 787.91 ICD-10 : R19.7 05/07/2017 Appointment: Belia Reid WPtel: [address] [place] [address] FOLLOW UP 05/07/2017 Patient Education: Patient Medication Summary Completed 05/07/2017 Appointment: Belia Reid WPtel: [address] [place] [address] US RESCHEDULED 04/30/2017 Visit Diagnosis Plan: Chronic obstructiv e pulmonary disease with (acute) exacerbation Discussion: Finish prednisone Continue S VNS with albuterol ICD-9 : 491.21 ICD-10 : J44.1 03/18/2017 Visit Diagnosis Plan: Stridor Discussion: Increase Ati van 0.5mg po to TID routinely for next week then can go back to prn ICD-9 : 786.1 ICD-10 : R06.1 03/18/2017 Appointment: Belia Reid WPtel: [address] [place] [address] ER Follow UP 03/18/2017 Patient Education: Patient [...] E11.65 02/27/2017 Appointment: Belia Reid WPtel: [phone] [place] [id number] FOLLOW UP 02/27/2017 Patient Education: Patient [...] ICD-10 : E11.65 02/22/2017 Appointment: Pattie Sotomayor [address] [place] [address] ACUTE ILLNESS 02/22/2017 Patient Education: Patient Medication [...] J18.9 01/23/2017 Appointment: Belia Reid WPtel: [phone] [facility] ER Follow UP 01/23/2017 Patient Education: Patient Medication Summary Completed 01/23/2017 Appointment: Pattie Sotomayor 504 [facility] CANCELED 01/17/2017 Appointment: Pattie Sotomayor 504 [facility] Annual Well Visit 01/14/2017 Visit Diagnosis Plan: Type 2 diabetes mellitus with hy perglycemia Discussion: Check CMP, HbA1C Flu shot and Prevnar 13 given Follow Up: 3 months ICD-9 : 250.02 ICD-10 : E11.65 12/20/2016 Visit Diagnosis Plan: Localized edema Discussion: Low Na diet Compression socks/Elevate feet ICD-9 : 782.3 ICD-10 : R60.0 12/20/2016 Appointment: Belia Reidtel: [phone] [facility] FOLLOW UP 12/20/2016 Patient Education: Patient Medication Summary Completed 12/20/2016 Patient Education: Patient Medication Summary Completed 10/10/2016 Visit Plan: Xrays of cervical, thoracic and lumbar spine at [facility] for Mobic (stop NSAIDS except Tylenol) and Flexeril UA sent for C&S Using SVN Call in 2-3 days if pain not improved or any worsening 10/08/2016 Appointment: Celeste Ferreira WPtel: [phone] [facility]66[facility] ACUTE ILLNESS 10/08/2016 Patient Education: [...] ICD-10 : E11.65 09/19/2016 Appointment: Belia Reidl: [address] [place], [place] [address] 09/18 confirmed`sl FOLLOW UP 09/19/2016 Patient Education: [...] : R10.84 08/20/2016 Appointment: Belia Reid WPtel: [address] [place] [address] 08/16 confirmed~sl FOLLOW UP 08/20/2016 Patient Education: [...] : J44.9 06/19/2016 Appointment: Belia Reid WPtel: [address] [place] [address] 06/18 confirmed ~ Hospital Follow Up 06/19/2016 [...] : Z87.440 06/04/2016 Appointment: Belia Reid WPtel: [address] [place], [place] [phone] 06/01 confirmed~ FOLLOW UP 06/04/2016 Patient Education: [...] : R06.1 05/02/2016 Appointment: Belia Reid WPtel: [address] [place] [address] 05/01 confirmed ~ Hospital Follow Up 05/02/2016 [...] : N39.0 04/03/2016 Appointment: Belia Reid WPtel: [address] [place], [place] [phone] 04/02 confirmed~ Hospital Follow Up 04/03/2016 Patient Education: Patient Medication Summary Completed 04/03/2016 Visit Plan: Lungs are clear Her symptoms and exam are all upper airway restriction/constriction Can try supportive care Rx as above Follow up PRN 02/29/2016 Appointment: Lidia Hwang [address] [place], [place] [address] ACUTE ILLNESS 02/29/2016 Patient Education: Patient Medication Summary Completed 02/29/2016 Visit Plan: Toradol/Phenergan today for Migraine Change to Clindamycin to cover lactobacillus for UTI Cover with flagyl due to hx of C. Diff 02/02/2016 Appointment: Belia Reid WPtel: [address] [place], [place] [phone] 01/31 confirmed`sl ACUTE ILLNESS 02/02/2016 Patient Education: Patient Medication Summary Completed 02/02/2016 Visit Plan: Increase neurontin to 300mg q AM and 600mg q PM Discussed neurology re-evaluation Flu shot given Need to check on Pneumonia shot Rx written out for albuterol 01/05/2016 Appointment: Belia Reid WPtel: [address] [place] [address] 01/03 confirmed ~sl Annual Well Visit 01/05/2016 Patient Education: Patient Medication Summary Completed 01/05/2016 Visit Plan: Cipro Culture urine hydrate Flexeril refilled Alternate heat and ice for back Increase gabapentin to 300mg po BID Notify if worsens 12/05/2015 Appointment: Belia Reid WPtel: [address] [place], [place] [phone] 11/30 confirmed~sl ACUTE ILLNESS 12/05/2015 Patient Education: Patient Medication Summary Completed 12/05/2015 Patient Education: Patient Medication Summary Completed 10/27/2015 Care Plan: COMPREHEN METABOLIC [place] : 83935-2 Pending 10/27/2015 Care Plan: A1C HPLC LOINC : 47331-2 Pending 10/27/2015 Visit Plan: Lungs are CTA today and is f eeling improved overall Finish meds as ordered Continue inhalers and neb treatments Discussed migraine treatment options She does not feel she needs anything additional added today Refill of Januvia sent since no samples are available today 10/26/2015 Appointment: Lidia Hwang [address] [place], [place] [address] Hospital Follow Up 10/26/2015 Appointment: Lidia Hwang [address] [place], [place] [address] [place] CANCELED 10/26/2015 Patient Education: Patient Medication Summary Completed 10/26/2015 Patient Education: Natalia Shin 18+ - KENNETH - No [place] Completed 10/26/2015 Visit Plan: Office dip still abnormal Cu lture pending Switch to cipro - stop macrobid Push fluids - avoid caffeine Will call with culture results when available Follow up if worsening 10/05/2015 Appointment: Lidia Hwang 2305 [facility]6676[facility] ER Follow UP 10/05/2015 Patient Education: Patient Medication Summary Completed 10/05/2015 Visit Plan: Proceed with PT for document ation of ROM and strength of all extremities Proceed with Power Mobility Device Trial of neurontin 300mg q HS--lyrica helped but patient unable to afford Recheck 1month 09/15/2015 Appointment: Belia Reid WPtel: [address] [place], [place] [phone] 09/13 confirmed~sl SPECIAL 09/15/2015 Patient Education: Patient Medication Summary Completed 09/15/2015 Visit Plan: Fille out Loan Discharge Pap erwork for total and permanent disability 08/25/2015 Patient Education: Patient Medication Summary Completed 08/25/2015 Visit Plan: Discussed with Dr Anushka Haywood at CT of head Will get last date of carotid doppler from her oncology nurse navigator and update if needed 08/24/2015 Appointment: Lidia Hwang [address] [place], [place] [phone] 08/22 confirmed~sl ACUTE ILLNESS 08/24/2015 Patient Education: Patient Medication Summary Completed 08/24/2015 Patient Education: Patient Medication Summary Completed 08/24/2015 Care Plan: US EXAM OF HEAD AND NECK carotid Ultrasound LOIN C : 07147-5 Pending 08/24/2015 Visit Plan: Long discussion about diet A ccuchecks daily Check HbA1C, CMP Change requip to mirapex 07/05/2015 Appointment: Belia Reid WPtel: [facility] 07/03 confirmed ~sl FOLLOW UP 07/05/2015 Patient Education: Patient Medication Summary Completed 07/05/2015 Visit Plan: Add Breo ellipta 100 1 p BID Continue SVNs with duoneb QID 06/06/2015 Appointment: Belia Reid WPtel: [address] [place], [place] [phone] Patient is calling for a ride, then [...] improving 05/23/2015 Appointment: Huong Osborne WPtel: [address] [place], [place] [phone] ACUTE ILLNESS 05/23/2015 Appointment: Lidia Hwang [address] [place], [place] [phone] ER Follow UP 05/23/2015 Patient Education: Patient Medication Summary Completed 05/23/2015 Visit Plan: Check pancreatic enzymes and US of pancreas as patient can't understand why she has diabetes since has no family history Discussed weight, diet, exercise all play an important role in diabetes and are risk factors as well Continue Januvia and accuchecks daily 05/05/2015 Appointment: Belia Reid WPtel: [address] [place], [place] [phone] FOLLOW UP 05/05/2015 Patient Education: Patient Medication Summary Completed 05/05/2015 Care Plan: US EXAM ABDOM COMPLETE LOINC : 28116-0 Ordered 05/05/2015 Visit Plan: Start Januvia 100mg daily [place] with diflucan and culture urine Accuchecks daily alternating times Recheck 6weeks 03/30/2015 Appointment: Belia Reid WPtel: [address] [place], [place] [phone] 03/29 confirmed~lb FOLLOW UP 03/30/2015 Patient Education: Patient Medication Summary Completed 03/30/2015 Appointment: Belia Reid WPtel: [address] [place] [address] 03/01 needs reschedule due to payment and insurance ~sl FOLLOW UP 03/02/2015 Visit Plan: Patient was just in ER last night so has not filled scripts yet Start Carafate and Flagyl and Cipro Add Hyophen 1 po BID Recheck 1mo 02/03/2015 Appointment: Belia Reid WPtel: [address] [place] [address] 02/02lm ~sl...02/03/15 appt confirmed cn ACUTE I LLNESS 02/03/2015 Patient Education: Patient Medication Summary Completed 02/03/2015 Visit Plan: Warm soaks to vaginal area K elex and Diflucan and observe Zofran to use prn 12/29/2014 Appointment: Belia Reid WPtel: [address] [place], [place] [phone] 12/28 Confirmed ~sl ACUTE ILLNESS 12/29/2014 Patient Education: Patient Medication Summary Completed 12/29/2014 Appointment: Huong Osborne WPtel: [address] [place] [address] FOLLOW UP 09/24/2014 Appointment: Belia Reid WPtel: [address] [place], [place] [phone] 09/15 confirmed -mf FOLLOW UP 09/16/2014 Visit Plan: Increase requip to 2mg po BI D Increase lyrica to 225mg total a day by adding an extra 75mg in AM Recheck in 2weeks Continue to patch left eye while sleeping 09/02/2014 Appointment: Belia Reid WPtel: [address] [place], [place] [phone] [place] 09/01 appt confirmed cn Hospital Follow Up 09/02 Patient Education: Patient Medication Summary Completed 09/02/2014 Visit Plan: To [facility] for observat ion to R/O CVA 08/25/2014 Appointment: Huong Osborne WPtel: [address] [place], [place] [phone] ACUTE ILLNESS 08/25/2014 Patient Education: Patient Medication Summary Completed 08/25/2014 Referral: Aaron Jonas WPtel: [facility] [place] [address] [facility], [address] [place] In [place] location Initiated 04/26/2014 Referral: Brian Srinivasan WPtel: [place] [id number] Referral Initiated 04/20/2014 Appointment: Belia Reid WPtel: [address] [place], [place] [phone] ER Follow UP 04/01/2014 Patient Education: Patient Medication Summary Completed 04/01/2014 Care Plan: MYELOGRAPHY NECK SPINE LOINC : 53816-8 Ordered 04/01/2014 Visit Plan: Continue Symbicort 160 at 2p BID Continue SVNs with duoneb at least QID Finish Levaquin Recheck 1mo on lyrica 03/16/2014 Appointment: Belia Reid WPtel: [address] [place], [place] [phone] 03/15 voicemail FOLLOW UP 03/16/2014 Patient Education: Patient Medication Summary Completed 03/16/2014 Visit Plan: Restart SVNs with duoneb QID Repeat prednisone Levaquin Continue symbicort Keep lyrica at same dose Recheck 1week 03/09/2014 Appointment: Belia Reid WPtel: [address] [place], [place] [phone] FOLLOW UP 03/09/2014 Patient Education: Patient Medication Summary Completed 03/09/2014 Appointment: Belia Reid WPtel: [address] [place], [place] [phone] 03/03 showed up 15 minutes late for appt -- put her on Huong's side for 10:45am FORGIVEN PER DR FOLLOW UP 03/03/2014 Appointment: Huong Osborne WPtel: [address] [place], [place] [phone] FOLLOW UP 03/03/2014 Patient Education: Patient Medication Summary Completed 03/03/2014 Appointment: Huong Osborne WPtel: [address] [place], [place] [phone] ER Follow UP 03/01/2014 Patient Education: Patient Medication Summary Completed 03/01/2014 Visit Plan: Add carafate for this next m onth Increase lyrica to 150mg q HS 02/09/2014 Appointment: Belia Reid WPtel: [address] [place], [place] [phone] [place] [address] Follow Up 02/09/2014 Patient Education: Patient Medication Summary Completed 02/09/2014 Visit Plan: Increase omeprazole back to 40mg po BID Use requip in AM and add lyrica 75mg q HS Recheck 1mo 12/23/2013 Appointment: Belia Reid WPtel: [address] [place], [place] [phone] FOLLOW UP 12/23/2013 Patient Education: Patient Medication Summary Completed 12/23/2013 Patient Education: Patient Medication Summary Completed 12/04/2013 Appointment: Belia Reid WPtel: [address] [place], [place] [phone] [facility] 10/30/2013 Patient Education: Patient Medication Summary Completed 10/30/2013 Appointment: Belia Reid WPtel: [address] [place], [place] [phone] [place] [address] 10/21/2013 Patient Education: Patient Medication Summary Completed 10/21/2013 Visit Plan: Cryotherapy as above TAC and hydroxyzine to use prn to itching spots and itching SKs Add Advair HFA 115/21 1 p BID 10/05/2013 Appointment: Belia Reid WPtel: [address] [place], [place] [phone] 10/01 pt called and confirmed ACUTE ILLNESS Patient Education: Patient Medication Summary Completed 10/05/2013 Appointment: Belia Reid WPtel: [address] [place], [place] [phone] [place] will pay copay and part of past balance FOLLOW U P 08/04/2013 Patient Education: Patient Medication Summary Completed 08/04/2013 Appointment: Belia Reid WPtel: [address] [place], [place] [phone] [place] INJECTION 07/13/2013 Patient Education: Patient Medication Summary Completed 07/13/2013 Appointment: Huong Osborne WPtel: [address] [place], [place] [phone] [place] ACUTE ILLNESS 07/03/2013 Patient Education: Patient Medication Summary Completed 07/03/2013 Visit Plan: Cipro and culture urine 05/27/2013 Appointment: Huong Osborne WPtel: [address] [place], [place] [address] 05/26 confirmed appt and notified that balance and advertising copywriter y is due at appt time FOLLOW UP 05/27/2013 Patient Education: Patient Medication Summary Completed 05/27/2013 Appointment: Belia Reid WPtel: [address] [place] [address] [place] UA 05/25/2013 Patient Education: Patient Medication Summary Completed 05/25/2013 Appointment: Belia Reid WPtel: [address] [place] [address] [place] INJECTION 05/04/2013 Patient Education: Patient Medication Summary Completed 05/04/2013 Appointment: Belia Reid WPtel: [address] [place], [place] [phone] [place] INJECTION 04/17/2013 Patient Education: Patient Medication Summary Completed 04/17/2013 Appointment: Belia Reid WPtel: [address] [place], [place] [phone] [place] INJECTION 04/15/2013 Appointment: Belia Reid WPtel: [address] [place], [place] [phone] 04/02 FOLLOW UP 04/06/2013 Patient Education: Patient Medication Summary Completed 04/06/2013 Visit Plan: Obtain lab results including UA from [facility] 11/10/2012 Appointment: Belia Reid WPtel: [address] [place] [address] ER Follow UP 11/10/2012 Patient Education: Patient Medication Summary Completed 11/10/2012 Appointment: Belia Reid WPtel: [address] [place] [address] 10/30/12 patient canceled appt due to fin ances. Offered to work something out, patient declined-LB FOLLOW UP 11/05/2012 Visit Plan: Continue Bystolic at current dose Pt has fwup with Neurology on September 16 09/02/2012 Appointment: Belia Reid WPtel: [address] [place] [address] FOLLOW UP 09/02/2012 Patient Education: Patient Medication Summary Completed 09/02/2012 Visit Plan: Continue bystolic at 5mg chris ly Sees Neurology tomorrow Use oxygen at bedtime 08/04/2012 Appointment: Belia Reid WPtel: [address] [place] [address] FOLLOW UP 08/04/2012 Patient Education: Patient Medication Summary Completed 08/04/2012 Appointment: Belia Reid WPtel: [address] [place] [address] has Hospital fwup for 07/21/12. merged appointments FOLLOW UP 07/24/2012 Visit Plan: Start Bystolic 5mg daily for tachycardia Fwup with neurology for further workup Overnight O2 sat 07/21/2012 Appointment: Belia Reid WPtel: [address] [place], [place] [phone] Hospital Follow Up 07/21/2012 Patient Education: Patient Medication Summary Completed 07/21/2012 Visit Plan: SVN with Albuterol QID Add A velox 400mg daily Notify if worsens or persists 07/02/2012 Appointment: Belia Reidtel: [address] [place], [place] [phone] ACUTE ILLNESS 07/02/2012 Patient Education: Patient Medication Summary Completed 07/02/2012 Appointment: Belia Reid WPtel: [address] [place], [place] [phone] INJECTION 06/25/2012 Patient Education: Patient Medication Summary Completed 06/25/2012 Appointment: Belia Reid WPtel: [address] [place], [place] [phone] FOLLOW UP 06/24/2012 Patient Education: Patient Medication Summary Completed 06/24/2012 Appointment: Belia Reid WPtel: [address] [place], [place] [phone] 05/19 left [facility] FOLLOW UP 05/20/2012 Patient Education: Patient Medication Summary Completed 05/20/2012 Visit Plan: DC Neurontin--discussed that this may be causing some of symptoms Also discussed that stress is likely contributing factor Discussed that may be going through withdrawal from stopping pain meds cold turkey--pt states stopped meds 2wks ago do to not helping Increase Buspar to 10mg po TID 05/08/2012 Appointment: Belia Reid WPtel: [address] [place], [place] [phone] ACUTE ILLNESS 05/08/2012 Patient Education: Patient Medication Summary Completed 05/08/2012 Visit Plan: Continue current meds Contin ue lower dose on pain meds and Diazepam Still waiting on paperwork for botox for Migraines Will restart Neurontin at 600mg po q HS Pt going to stop Depakote due to can't afford 04/22/2012 [facility]ment[facility] [phone] [id number] [facility] Follow Up 04/22/2012 Patient Education: Patient Medication Summary Completed 04/22/2012 Visit Plan: Injection to shoulder as abo ve Continue current meds Has appointment with neurology on HAs in 02/13/2012 Appointment: Belia Reid WPtel: [address] [place], [place] [id number] Pt does not have $10 copay at [facility] t time - will bring it in next week. Kianna iqbal'ed this. - [place] FOLLOW UP 02/13/2012 Patient Education: Patient Medication Summary Completed 02/13/2012 Visit Plan: Proceed with headache specia list Change nexium to Protonix Phenergan to use prn Sumatriptan to use prn Pt still on Inderal 01/28/2012 Appointment: Belia Reid WPtel: [address] [place], [place] [phone] ER Follow UP 01/28/2012 Patient Education: Patient [...] for sleep 12/26/2011 Appointment: Belia Reid WPtel: [address] [place], [place] [phone] 12/24- appt. confirmed FOLLOW UP 2 Patient Education: Patient Medication Summary Completed 12/26/2011 Appointment: Belia Reid WPtel: [address] [place], [place] [phone] [place] FOLLOW UP 11/14/2011 Patient Education: Patient Medication Summary Completed 11/14/2011 Appointment: Belia Reid WPtel: [facility] [place], [place] [phone] FOLLOW UP 09/12/2011 Patient Education: Patient Medication Summary Completed 09/12/2011 Visit Plan: Supportive care Decrease Liseth catalino to 50mg q HS Decrease AM dose of Valium to 5mg q HS Use Endocet sparingly 08/15/2011 Appointment: Belia Reid WPtel: [address] [place], [place] [phone] ER Follow UP 08/15/2011 Patient Education: Patient Medication Summary Completed 08/15/2011 Appointment: Belia Reid WPtel: [address] [place], [place] [phone] [place] Spoke directly to patient yesterday and confirmed the appoin tment. ACUTE ILLNESS 08/09/2011 Patient Education: Patient Medication Summary Completed 08/09/2011 Appointment: Belia Reid WPtel: [address] [place], [place] [id number] Hospital Follow Up 07/03/2011 Patient Education: Patient Medication Summary Completed 07/03/2011 Appointment: Belia Reid WPtel: [address] [place], [place] [phone] FOLLOW UP 06/04/2011 Patient Education: Patient Medication Summary Completed 06/04/2011 Visit Plan: Pt. wants "allergy shot" but in fact wants steroid shot. Will take a break from "generic Zyrtec they are getting from [facility]" and try Singulair for 2 weeks. 05/03/2011 Appointment: Iraida Jones WPtel: [address] [place], [place] [phone] ACUTE ILLNESS 05/03/2011 Patient Education: Patient Medication Summary Completed 05/03/2011 Visit Plan: Neurontin 400mg q HS for 1we ek then 800mg q HS Decrease requip to 1mg q HS for 2wks then stop Fwup 2mos 04/05/2011 Appointment: Belia Reid WPtel: [address] [place], [place] [phone] FOLLOW UP 04/05/2011 Patient Education: Patient Medication Summary Completed 04/05/2011 Visit Plan: Trial of neurontin in 2wks C rahul current meds for stomach Pt has procedure with Dr. Ortiz next week for stone removal 03/08/2011 Appointment: Belia Reid WPtel: [address] [place], [place] [phone] Hospital Follow Up 03/08/2011 Patient Education: Patient Medication Summary Completed 03/08/2011 Appointment: Belia Reid WPtel: [address] [place], [place] [phone] FOLLOW UP 02/19/2011 Visit Plan: reports increased [...] with Flagyl 01/24/2011 Appointment: Iraida Jones WPtel: [address] [place] [address] ACUTE ILLNESS 01/24/2011 Patient Education: Patient Medication Summary Completed 01/24/2011 Appointment: Belia Reid WPtel: [address] [place], [place] [phone] FOLLOW UP 01/02/2011 Patient Education: Patient Medication Summary Completed 01/02/2011 Appointment: Belia Reid WPtel: [address] [place], [place] [phone] FOLLOW UP 12/12/2010 Appointment: Belia Reid WPtel: [address] [place], [place] [phone] ACUTE ILLNESS 12/07/2010 Patient Education: Patient Medication Summary Completed 12/07/2010 Visit Plan: Increase Buspar to 10mg po B ID 11/16/2010 Appointment: Belia Reid WPtel: [address] [place], [place] [phone] FOLLOW UP 11/16/2010 Patient Education: Patient Medication Summary Completed 11/16/2010 Appointment: Iraida Jones WPtel: [address] [place], [place] [phone] ER Follow UP 11/02/2010 Patient Education: Patient Medication Summary Completed 11/02/2010 Visit Plan: Depo-Medrol/Kenalog given fo r allergies Add BuSpar for anxiety Oxycodone one p.o. q.i.d. for number 120 refilled 10/18/2010 Appointment: Belia Reid WPtel: [address] [place] [address] FOLLOW UP 10/18/2010 Patient Education: Patient Medication Summary Completed 10/18/2010 Visit Plan: Continue current meds Discus sed epidurals for back vs PT--will proceed with epidurals to thoracolumbar region to see if helps with pain 09/19/2010 Appointment: Belia Reid WPtel: [address] [place], [place] [phone] FOLLOW UP 09/19/2010 Patient Education: Patient Medication Summary Completed 09/19/2010 Visit Plan: DC MS contin Check CT scan t horacic spine Fwup pending above results 09/06/2010 Appointment: Belia Reid WPtel: [address] [place], [place] [phone] FOLLOW UP 09/06/2010 Patient Education: Patient Medication Summary Completed 09/06/2010 Visit Plan: Continue current meds Restar t MS contin 15mg po BID and use oxycodone prn Use daily senokot-s 2 po BID 08/10/2010 Appointment: Belia Reid WPtel: [address] [place], [place] [phone] [place] FOLLOW UP 08/10/2010 Patient Education: Patient Medication Summary Completed 08/10/2010 Visit Plan: Depomedrol/Kenalog given Pt sees ENT later this month Cont current meds Mammo scheduled 05/11/2010 Appointment: Belia Reid WPtel: [address] [place], [place] [id number] FOLLOW UP 05/11/2010 Patient Education: Patient Medication Summary Completed 05/11/2010 Appointment: Belia Reid WPtel: [address] [place], [place] [phone] [place] [address] 05/04/2010 Patient Education: Patient Medication Summary Completed 05/04/2010 Visit Plan: Pt sent to lab for UA 04/28/2010 Appointment: Belia Reid WPtel: [address] [place] [address] 04/28/2010 Patient Education: Patient Medication Summary Completed 04/28/2010 Visit Plan: Check CT angiogram of chest Restart Advair Use proair prn Cont current meds Fwup with Card as schedulec 04/06/2010 Appointment: Belia Reid WPtel: [address] [place] [address] Follow Up 04/06/2010 Patient Education: Patient Medication Summary Completed 04/06/2010 Visit Plan: Paperwork filled out for pow erchair Depomedrol/kenalog given Pt sees ENT in 2wks to assess nasal obstruction problems 02/09/2010 Appointment: Belia Reid WPtel: [address] [place] [address] ESTABLISHED PATIENT 02/09/2010 Patient Education: Patient Medication Summary Completed 02/09/2010 Visit Plan: Change Elavil to Trazadone 1 50mg q HS Diflucan and nystatin for tinea cruris 01/05/2010 Appointment: Belia Reid WPtel: [address] [place] [address] FOLLOW UP 01/05/2010 Patient Education: Patient Medication Summary Completed 01/05/2010 Appointment: Belia Reid WPtel: [address] [place] [address] FOLLOW UP 12/07/2009 Patient Education: Patient Medication Summary Completed 12/07/2009 Appointment: Belia Reid WPtel: [address] [place] [address] FOLLOW UP 11/22/2009 Visit Plan: Cont current meds and await MRI results from Dr. Meadows's office and his final recommendations Will need to follow-up at later date on deviated septum 11/08/2009 Appointment: Belia Reid WPtel: [address] [place] [address] FOLLOW UP 11/08/2009 Patient Education: Patient Medication Summary Completed 11/08/2009 Visit Plan: Cont PT/OT See Neurosurgery Cont Tortoise shell brace 10/24/2009 Appointment: Belia Reid WPtel: [address] [place] [address] FOLLOW UP 10/24/2009 Patient Education: Patient Medication Summary Completed 10/24/2009 Appointment: Belia Reid WPtel: [address] [place] [address] Hospital Follow Up 10/17/2009 Appointment: Belia Reid WPtel: [address] [place] [address] ACUTE ILLNESS 07/25/2009 Patient Education: Patient Medication Summary Completed 07/25/2009 Appointment: Belia Reid WPtel: [address] [place] [address] FOLLOW UP 05/26/2009 Patient Education: Patient Medication Summary Completed 05/26/2009 Referral: Chino Balderas WPtel: [facility] [address] Referral Initiated Referral: Merry Vale WPtel: [facility] [id number] Vale will review referral and book appointment Completed Referral: Francisco Javier Yoder WPtel: [phone] [id number] Patient needs EGD insurance will not inc rease a medication unless this procedure results show a need Completed Referral: Francisco Javier Yoder WPtel: [phone] [id number] [place] Referral Historical Reference Referral: Francisco Javier Yoder WPtel: [phone] [id number] [place] Referral Initiated Instructions Comment . Xrays [...] last date of carotid doppler from her oncology nurse navigator and update if needed . Long discussion [...] from "generic Zyrtec they are getting from [facility]" and try Singulair for 2 weeks. [...]
--- OUTSIDE RECORDS SUMMARY | 2019-06-23 17:53 | XMS REPORT | CCD ---
Author Author Diana Reid D.O. Organization [facility] Address [address] [place] [address] Phone Care Team Providers Care Administrative Support Technician Name Role Phone [facility] D[facility] PP Unavailable CCM Unavailable Summary Purpose Interface Exchange Insurance Providers Payer name Policy type / Coverage type Covered green party ID Effective Begin Date Effective End Date [employer] MEDICARE Medicare Part B [id number] 2019 Unknown Family History Family History data not found Social History Social History Element Codes Description Effective Dates Tobacco history SNOMED CT: 553859882 Nonsmoker 09/13/2010 Allergies, Adverse Reactions, Alerts Substance Reaction Codes Entered Date Inactivated Date Status Eggs reaction 31504259 09/15/2015 No Inactive Date Active _ Unknown 01/07/2019 No Inactive Date Active PENICILLINS Unknown 01/07/2019 No Inactive Date Active SULFA (SULFONAMIDES) rash Unknown 11/02/2010 No Inactive Mike e Active Problems Condition Codes Effective Dates Condition Status Acute febrile illness ICD-9: 780.60 ICD-10: R50.9 [...] eruption ICD-9: 782.1 ICD-10: R21 05/29/2017 Active Diarrhea, unspecified ICD-9: 787.91 ICD-10: R19.7 06/24/2012 Active Tinea corporis ICD-9: 110.5 ICD-10: B35.4 [...] Start Date Stop Date Status Fill Instructions Flagyl 500 mg tablet RxNorm: 385762 1 Tablet(s) Oral three time s a day 05/26/2019 06/05/2019 Active diltiazem CD 240 mg capsule,extended release 24 hr RxNorm: 8 35188 1 Capsule(s) Oral QD 05/26/2019 11/21/2019 Active Cipro 250 mg tablet RxNorm: 624545 1 Tablet(s) Oral two times a day 05/26/2019 06/02/2019 Active omeprazole 40 mg capsule,delayed release RxNorm: 798122 1 Capsule(s) Oral two times a day 05/26/2019 11/21/2019 Active hydroxyzine HCl 25 mg tablet RxNorm: 664277 1 Tablet(s) Oral QPM for itching/aniety 05/21/2019 06/27/2019 Active metoprolol tartrate 25 mg tablet RxNorm: 286812 1 Table t(s) Oral two times a day 05/21/2019 08/19/2019 Active hydroxyzine HCl 25 mg tablet RxNorm: 533179 1 Tablet(s) Oral QPM for itching/aniety 05/13/2019 05/20/2019 Inactive gabapentin 600 mg tablet RxNorm: 628767 1 Tablet(s) Oral QD 020 06/05/2019 Active Singulair 10 mg tablet RxNorm: 154699 1 Tablet(s) Oral QPM 05/06/19 20 05/12/2019 Inactive Valium 5 mg tablet RxNorm: 823577 1 Tablet(s) Oral QPM for stri joao/muscle spasm 04/29/2019 05/29/2019 Active baclofen 10 mg tablet RxNorm: 794984 1 Tablet(s) Oral QPM for s pasm/neck pain 04/24/2019 05/23/2019 Inactive baclofen 10 mg tablet RxNorm: 023761 1 Tablet(s) Oral QPM for s pasm/neck pain 04/24/2019 04/23/2019 Inactive Novolin N NPH U-100 Insulin isophane 100 unit/mL subcu taneous susp RxNorm: 101380 23 Unit(s) Subcutaneous two times a day 04/20/2019 No Stop Date A ctive cyclobenzaprine 5 mg tablet RxNorm: 015606 1 Tablet(s) Oral three times a day as needed 04/16/2019 04/23/2019 Inactive hydroxyzine HCl 25 mg tablet RxNorm: 804188 1 Tablet(s) Oral three times a day for itching/aniety 04/08/2019 05/12/2019 Inactive gabapentin 600 mg tablet RxNorm: 861016 1 Tablet(s) Oral two ti mes a day 04/08/2019 05/05/2019 Inactive gabapentin 600 mg tablet RxNorm: 012892 1 Tablet(s) Oral two ti mes a day 04/08/2019 04/07/2019 Inactive Novolin N NPH U-100 Insulin isophane 100 unit/mL subcu taneous susp RxNorm: 883050 10 Unit(s) Subcutaneous two times a day 03/03/2019 04/19/2019 I nactive gabapentin 300 mg capsule RxNorm: 738868 1 Capsule(s) O ral every night at bedtime for neuropathy 02/26/2019 04/07/2019 Inactive gabapentin 300 mg capsule RxNorm: 521688 1 Capsule(s) O ral every night at bedtime for neuropathy 02/20/2019 02/25/2019 Inactive pramipexole 1 mg tablet RxNorm: 854151 1 Tablet(s) Oral QPM FOR RESTLESS LEGS (REPLACES REQUIP) 02/12/2019 02/07/2020 Active buspirone 5 mg tablet RxNorm: 435106 TAKE 1 TABLET THREE TIMES MILDRED Y 02/12/2019 05/12/2019 Inactive Lexapro 10 mg tablet RxNorm: 621351 TAKE 1 TABLET EVERY DAY FOR MOO D 01/31/2019 No Stop Date Active Ativan 0.5 mg tablet RxNorm: 146871 TAKE 1 TABLET BY MO UTH THREE TIMES DAILY NEEDED FOR ANXIETY 01/26/2019 04/28/2019 Inactive Ativan 0.5 mg tablet RxNorm: 668044 TAKE 1 TABLET BY MO UTH THREE TIMES DAILY NEEDED FOR ANXIETY 01/05/2019 01/05/2019 Inactive Levaquin 500 mg tablet RxNorm: 313248 1 Tablet(s) Oral QD 12/25/2018 12/24/2018 Inactive Levaquin 500 mg tablet RxNorm: 573752 1 Tablet(s) Oral QD 12/25/2018 01/04/2019 Inactive baclofen 10 mg tablet RxNorm: 148461 1 Tablet(s) Oral three maico es a day 11/20/2018 01/19/2019 Inactive Ativan 0.5 mg tablet RxNorm: 211358 TAKE 1 TABLET BY MO UT THREE TIMES DAILY NEEDED FOR ANXIETY 11/20/2018 01/04/2019 Inactive gabapentin 300 mg capsule RxNorm: 195657 1 Capsule(s) O ral every night at bedtime for neuropathy 11/20/2018 12/20/2018 Inactive Lexapro 10 mg tablet RxNorm: 711605 1 Tablet(s) PO QD for mood 07/201801/30/2019 Inactive Zithromax Z-Lj 250 mg tablet RxNorm: 864716 Tablet(s) PO take as directed 11/04/2018 11/19/2018 Inactive Insulin Syringe 1 mL 29 gauge x 1/2" RxNorm: 2 s yringes daily with insulin Dx: E11.65 10/08/2018 No Stop Date Active gabapentin 300 mg capsule RxNorm: 412168 1 Capsule(s) PO QHS fo r neuropathy 09/18/2018 10/17/2018 Inactive cyclobenzaprine 5 mg tablet RxNorm: 034282 1 Tablet(s) PO TID a s needed 09/09/2018 09/08/2018 Inactive cyclobenzaprine 5 mg tablet RxNorm: 483699 1 Tablet(s) PO TID a s needed 09/09/2018 10/08/2018 Inactive prednisone 20 mg tablet RxNorm: 790463 1 Tablet(s) PO QD 09/08/2018 0 09/12/2018 Inactive Lantus Solostar U-100 Insulin 100 unit/mL (3 mL) subcu taneous pen RxNorm: 793058 55 Unit(s) SQ QAM 08/28/2018 11/03/2018 Inactive hydroxyzine HCl 25 mg tablet RxNorm: 610092 1 Tablet(s) PO QHS for itching 08/20/2018 05/12/2019 Inactive Lexapro 10 mg tablet RxNorm: 299412 1 Tablet(s) PO QD for mood 08/0210/18/2018 Inactive sumatriptan 100 mg tablet RxNorm: 026260 1 Tablet(s) PO at headache onset. May repeat 1 in two hours if headache remains. Max of 2 per 24 hours 04/02/2018 05/20/2018 Inactive Diflucan 150 mg tablet RxNorm: 396557 1 Tablet(s) PO QD 03/18/2018 Inactive Diflucan 150 mg tablet RxNorm: 590917 1 Tablet(s) PO QD 03/18/2018 Inactive Flagyl 500 mg tablet RxNorm: 281128 1 Tablet(s) PO TID 03/17/2018 Inactive Levaquin 500 mg tablet RxNorm: 537809 1 Tablet(s) PO QD 03/17/2018 Inactive Levaquin 500 mg tablet RxNorm: 735336 1 Tablet(s) PO QD 03/17/2018 Inactive Flagyl 500 mg tablet RxNorm: 665033 1 Tablet(s) PO TID 03/17/2018 Inactive ketoconazole 200 mg tablet RxNorm: 147467 1 Tablet(s) PO QD 019 03/19/2018 Inactive Celebrex 200 mg capsule RxNorm: 707153 1 Capsule(s) PO BID 02/06/20 18 05/20/2018 Inactive tramadol 50 mg tablet RxNorm: 781633 1 Tablet(s) PO TID as needed 1 04/08/2017 05/20/2018 Inactive gabapentin 300 mg capsule RxNorm: 241697 1 Capsule(s) PO BID 201705/20/2018 Inactive Diflucan 150 mg tablet RxNorm: 971202 1 Tablet(s) PO QD 01/20/2018 Inactive pramipexole 1 mg tablet RxNorm: 523923 1 Tablet(s) PO Q PM FOR RESTLESS LEGS (REPLACES REQUIP) 01/08/2018 02/11/2019 Inactive cyclobenzaprine 10 mg tablet RxNorm: 445095 1 Tablet(s) PO TID as needed for muscle spasm 12/17/2017 05/20/2018 Inactive pramipexole 1 mg tablet RxNorm: 545562 TAKE 1 TABLET BY MOUTH ONCE DAILY IN THE EVENING FOR RESTLESS LEGS (REPLACES REQUIP) 12/04/2017 01/05/2018 Inac tive Amaryl 4 mg tablet RxNorm: 057162 1 Tablet(s) PO BID replaces 2mg 0 11/05/2017 12/16/2017 Inactive Singulair 10 mg tablet RxNorm: 295179 1 Tablet(s) PO QHS for al lergies/lungs 10/30/2017 12/16/2017 Inactive Diflucan 100 mg tablet RxNorm: 377638 1 Tablet(s) PO QD 10/23/2017 Inactive Ativan 0.5 mg tablet RxNorm: 326227 TAKE 1 TABLET BY MOUTH THRE E TIMES DAILY 08/30/2017 11/20/2018 Inactive buspirone 5 mg tablet RxNorm: 511773 1 Tablet(s) PO TID 07/11/2017 Inactive propranolol 60 mg tablet RxNorm: 590535 1 Tablet(s) PO BID repl aces 40mg dose 06/26/2017 12/16/2017 Inactive Amaryl 4 mg tablet RxNorm: 676662 1 Tablet(s) PO BID replaces 2mg 0 06/12/2017 11/05/2017 Inactive omeprazole 40 mg capsule,delayed release RxNorm: 120626 1 Capsule(s) PO BID TAKE ONE CAPSULE BY MOUTH TWICE DAILY 05/30/2017 11/25/2017 Inactive pramipexole 1 mg tablet RxNorm: 461306 1 Tablet(s) PO Q PM for restless legs--replaces requip 05/30/2017 11/25/2017 Inactive amitriptyline 50 mg tablet RxNorm: 230909 1 Tablet(s) PO QHS 201709/16/2017 Inactive Diflucan 100 mg tablet RxNorm: 724352 1 Tablet(s) PO BID 05/07/2017 0 05/20/2017 Inactive nystatin (bulk) 100 million unit powder RxNorm: Application TO P BID 05/07/2017 05/20/2018 Inactive cholestyramine (with sugar) 4 gram oral powder RxNorm: 388791 1 Unit Dose PO QD 05/07/2017 01/20/2018 Inactive Ativan 0.5 mg tablet RxNorm: 221511 TAKE ONE TABLET BY MOUTH TH REE TIMES DAILY 05/01/2017 09/02/2017 Inactive Trulicity 1.5 mg/0.5 mL subcutaneous pen injector RxNorm: 15 83839 1 Unit Dose SQ WEEKLY 02/22/2017 03/23/2017 Inactive doxycycline hyclate 100 mg capsule RxNorm: 2811747 1 Capsule(s) PO BID 01/23/2017 02/05/2017 Inactive Amaryl 4 mg tablet RxNorm: 658892 1 Tablet(s) PO BID replaces 2mg 1 03/25/2016 05/22/2017 Inactive magnesium oxide 400 mg capsule RxNorm: 028787 1 Capsule(s) PO QD 07/18/2017 Inactive Ativan 0.5 mg tablet RxNorm: 484612 TAKE ONE TABLET BY MOUTH TH REE TIMES DAILY 01/17/2017 05/01/2017 Inactive Amaryl 2 mg tablet RxNorm: 645079 1 Tablet(s) PO BID 12/27/201601/22 Inactive Amaryl 2 mg tablet RxNorm: 213829 1 Tablet(s) PO BID 12/26/201612/26 Inactive Ativan 0.5 mg tablet RxNorm: 921720 TAKE ONE TABLET BY MOUTH TH REE TIMES DAILY 12/05/2016 01/18/2017 Inactive pramipexole 1 mg tablet RxNorm: 304916 1 Tablet(s) PO Q PM for restless legs--replaces requip 11/26/2016 05/30/2017 Inactive Mobic 15 mg tablet RxNorm: 184841 1 Tablet(s) PO QD 10/08/20162016 Inactive cyclobenzaprine 5 mg tablet RxNorm: 098544 1/2- 1 Tablet(s) PO TID 10/08/2016 10/17/2016 Inactive Ativan 0.5 mg tablet RxNorm: 316620 1 Tablet(s) PO TID 09/20/201607/2016 Inactive amitriptyline 50 mg tablet RxNorm: 264680 1 Tablet(s) PO QHS 201605/30/2017 Inactive propranolol 60 mg tablet RxNorm: 067421 1 Tablet(s) PO BID repl aces 40mg dose 09/19/2016 06/26/2017 Inactive Ativan 0.5 mg tablet RxNorm: 054495 1 Tablet(s) PO TID 08/20/2016 Inactive omeprazole 40 mg capsule,delayed release RxNorm: 559170 1 Capsule(s) PO BID TAKE ONE CAPSULE BY MOUTH TWICE DAILY 08/20/2016 05/30/2017 Inactive amitriptyline 50 mg tablet RxNorm: 587656 1 Tablet(s) PO QHS 201609/18/2016 Inactive pramipexole 1 mg tablet RxNorm: 341024 1 Tablet(s) PO Q PM for restless legs--replaces requip 07/23/2016 11/25/2016 Inactive Amaryl 2 mg tablet RxNorm: 419293 1 Tablet(s) PO BID 07/23/201612/27 Inactive propranolol 40 mg tablet RxNorm: 939241 1 Tablet(s) PO BID 07/13/19 17 09/18/2016 Inactive Ativan 0.5 mg tablet RxNorm: 169448 1 Tablet(s) PO QID 06/19/2016 Inactive Amaryl 2 mg tablet RxNorm: 848827 1 Tablet(s) PO BID 06/19/201607/22 Inactive Ativan 0.5 mg tablet RxNorm: 017500 1 Tablet(s) PO QID 06/19/2016 Inactive buspirone 5 mg tablet RxNorm: 329222 1 Tablet(s) PO TID 06/19/2016 Inactive Ativan 0.5 mg tablet RxNorm: 472951 1 Tablet(s) PO BID 05/24/2016 Inactive buspirone 5 mg tablet RxNorm: 099897 1 Tablet(s) PO TID 05/23/2016 Inactive Macrobid 100 mg capsule RxNorm: 193973 1 Capsule(s) PO QOD 05/03/1910/07/2016 Inactive pramipexole 1 mg tablet RxNorm: 526483 Tablet(s) 1 Tabl et(s) PO QPM for restless legs--replaces requip 04/26/2016 06/24/2016 Inactive propranolol 40 mg tablet RxNorm: 908023 TAKE ONE TABLET BY MOUT H TWICE DAILY 04/26/2016 06/24/2016 Inactive Detrol LA 4 mg capsule,extended release RxNorm: 937544 1 Capsul e(s) PO QHS 04/03/2016 05/02/2016 Inactive prednisone 20 mg tablet RxNorm: 767732 1 Tablet(s) PO QD 02/29/2016 0 03/04/2016 Inactive Actos 30 mg tablet RxNorm: 799154 TAKE ONE TABLET BY MOUTH ONCE DAILY 02/27/2016 12/19/2016 Inactive clindamycin 300 mg capsule RxNorm: 437360 1 Capsule(s) PO TID 02/0102/08/2016 Inactive Flagyl 500 mg tablet RxNorm: 772419 1 Tablet(s) PO BID 02/02/201609/2015 Inactive omeprazole 40 mg capsule,delayed release RxNorm: 949882 TAKE ONE CAPSULE BY MOUTH TWICE DAILY 01/15/2016 07/12/2016 Inactive gabapentin 300 mg capsule RxNorm: 079618 1 Capsule(s) PO QAM an d 2 po q HS 01/05/2016 06/18/2016 Inactive gabapentin 300 mg capsule RxNorm: 274901 1 Capsule(s) P O BID 1 Capsule(s) PO QHS 12/05/2015 01/04/2016 Inactive cyclobenzaprine 10 mg tablet RxNorm: 221725 1 Tablet(s) PO TID for spasm as needed for muscle spasm 12/05/2015 06/18/2016 Inactive ciprofloxacin 250 mg tablet RxNorm: 809761 1 Tablet(s) PO BID 12/0412/14/2015 Inactive pramipexole 1 mg tablet RxNorm: 897384 Tablet(s) 1 Tabl et(s) PO QPM for restless legs--replaces requip 11/07/2015 11/26/2016 Inactive Januvia 100 mg tablet RxNorm: 542720 1 Tablet(s) PO QD 10/26/201504/2015 Inactive propranolol 40 mg tablet RxNorm: 114107 TAKE ONE TABLET BY MOUT H TWICE DAILY 10/25/2015 04/21/2016 Inactive gabapentin 300 mg capsule RxNorm: 161762 1 Capsule(s) PO QHS 201512/04/2015 Inactive Cipro 500 mg tablet RxNorm: 675310 1 Tablet(s) PO BID 10/05/201511/2015 Inactive pramipexole 1 mg tablet RxNorm: 215951 Tablet(s) 1 Tabl et(s) PO QPM for restless legs--replaces requip 10/04/2015 11/02/2015 Inactive propranolol 40 mg tablet RxNorm: 167153 TAKE ONE TABLET BY MOUT H TWICE DAILY 09/26/2015 10/24/2015 Inactive Amaryl 2 mg tablet RxNorm: 020197 1 Tablet(s) PO QD 09/15/20152016 Inactive gabapentin 300 mg capsule RxNorm: 070939 1 Capsule(s) PO QHS 201510/14/2015 Inactive buspirone 5 mg tablet RxNorm: 585352 1 Tablet(s) PO TID 09/15/2015 Inactive pramipexole 1 mg tablet RxNorm: 499072 Tablet(s) 1 Tabl et(s) PO QPM for restless legs--replaces requip 09/08/2015 10/03/2015 Inactive pramipexole 1 mg tablet RxNorm: 397246 1 Tablet(s) PO Q PM for restless legs--replaces requip 08/08/2015 09/08/2015 Inactive Amaryl 2 mg tablet RxNorm: 563791 1 Tablet(s) PO QD 07/07/20152015 Inactive pramipexole 1 mg tablet RxNorm: 567068 1 Tablet(s) PO Q PM for restless legs--replaces requip 07/05/2015 08/03/2015 Inactive ropinirole 2 mg tablet RxNorm: 849755 TAKE ONE TABLET BY MOUTH TWICE DAILY 05/09/2015 09/14/2015 Inactive Diflucan 100 mg tablet RxNorm: 029765 1 Tablet(s) PO QD 03/30/2015 Inactive propranolol 40 mg tablet RxNorm: 427245 1 Tablet(s) PO BID 02/24/2008/21/2015 Inactive [SAVINGS FOR UNINSURED PATIE NTS -- BIN:159971, PCN: ASPROD1, Group: AME08, ID# [id number], Process claim through [employer], for questions: . THIS IS NOT INSURANCE.] Flagyl 500 mg tablet RxNorm: 829832 1 Tablet(s) PO BID 02/03/201502/2015 Inactive Cipro 500 mg tablet RxNorm: 868176 1 Tablet(s) PO BID 02/03/201502/01 Inactive Carafate 1 gram tablet RxNorm: 595732 1 Tablet(s) PO QID make i nto slurry 02/03/2015 09/14/2015 Inactive ondansetron HCl 4 mg tablet RxNorm: 622518 1 Tablet(s) PO Q4H as needed for nausea 12/29/2014 01/04/2016 Inactive Diflucan 100 mg tablet RxNorm: 487829 1 Tablet(s) PO QD 12/29/2014 Inactive Keflex 500 mg capsule RxNorm: 209037 1 Capsule(s) PO TID 12/29/2014 1 03/09/2014 Inactive omeprazole 40 mg capsule,delayed release RxNorm: 597088 1 Capsu le(s) PO BID 12/27/2014 12/21/2015 Inactive [SAVINGS FOR UNINSUR ED PATIENTS -- BIN:130543, PCN: ASPROD1, Group: AME08, ID# [id number], Process claim through [employer], for questions: . THIS IS NOT INSURANCE.] ropinirole 2 mg tablet RxNorm: 477862 1 Tablet(s) PO BID 09/29/2014 0 03/27/2015 Inactive [SAVINGS FOR UNINSURED PATIENTS -- BIN:0 18934, PCN: ASPROD1, Group: AME08, ID# [id number], Process claim through [employer], for questions: . THIS IS NOT INSURANCE.] buspirone 5 mg tablet RxNorm: 104138 1 Tablet(s) PO TID 09/17/2014 Inactive ropinirole 2 mg tablet RxNorm: 185659 1 Tablet(s) PO BID 09/02/2014 0 09/28/2014 Inactive [SAVINGS FOR UNINSURED PATIENTS -- BIN:0 29582, PCN: ASPROD1, Group: AME08, ID# [id number], Process claim through [employer], for questions: . THIS IS NOT INSURANCE.] Zyrtec 10 mg tablet RxNorm: 5441012 1 Tablet(s) PO QD 09/02/201412/02 Inactive propranolol 40 mg tablet RxNorm: 310500 1 Tablet(s) PO BID 07/21/19 15 02/23/2015 Inactive [SAVINGS FOR UNINSURED PATIE NTS -- BIN:648860, PCN: ASPROD1, Group: AME08, ID# [id number], Process claim through [employer], for questions: . THIS IS NOT INSURANCE.] ropinirole 2 mg tablet RxNorm: 245174 1 Tablet(s) PO QHS 05/14/2014 0 09/01/2014 Inactive [SAVINGS FOR UNINSURED PATIENTS -- BIN:0 91553, PCN: ASPROD1, Group: AME08, ID# [id number], Process claim through [employer], for questions: . THIS IS NOT INSURANCE.] cyclobenzaprine 10 mg tablet RxNorm: 135691 1 Tablet(s) PO QHS for spasm 04/06/2014 09/01/2014 Inactive ipratropium-albuterol 0.5 mg-3 mg(2.5 mg base)/3 mL ne bulization soln RxNorm: 5532797 1 Unit Dose INH Q4H 03/16/2014 No Stop Date Active [SAVINGS FOR UNINSURED PATIENTS -- BIN:581589, PCN: ASPROD1, Group: AME08, ID# [id number], Process claim through [employer], for questions: . THIS IS NOT INSURANCE.] prednisone 20 mg tablet RxNorm: 230753 1 Tablet(s) PO BID 03/09/2014 03/15/2014 Inactive [SAVINGS FOR UNINSURED PATIENTS -- BIN:0 22810, PCN: ASPROD1, Group: AME08, ID# [id number], Process claim through [employer], for questions: . THIS IS NOT INSURANCE.] ipratropium-albuterol 0.5 mg-3 mg(2.5 mg base)/3 mL ne bulization soln RxNorm: 8881562 1 Unit Dose INH Q4H 03/09/2014 03/15/2014 Inactive [SAVINGS FOR UNINSURED PATIENTS -- BIN:982166, PCN: ASPROD1, Group: AME08, ID# [id number], Process claim through [employer], for questions: . THIS IS NOT INSURANCE.] Levaquin 500 mg tablet RxNorm: 888740 1 Tablet(s) PO QD 03/09/2014 Inactive [SAVINGS FOR UNINSURED PATIENTS -- BIN:0 87465, PCN: ASPROD1, Group: AME08, ID# [id number], Process claim through [employer], for questions: . THIS IS NOT INSURANCE.] Carafate 1 gram tablet RxNorm: 484230 1 Tablet(s) PO AC & HS ma ke into slurry 02/09/2014 09/01/2014 Inactive [SAVINGS FOR UNINSUR ED PATIENTS -- BIN:140229, PCN: ASPROD1, Group: AME08, ID# [id number], Process claim through [employer], for questions: . THIS IS NOT INSURANCE.] Fioricet 50 mg-300 mg-40 mg capsule RxNorm: 8826637 1-2 Capsule(s) PO Q4H as needed for headache --max of 6 a day 02/09/2014 09/01/2014 Inactive [SAVINGS FOR UNINSURED PATIENTS -- BIN:655208, PCN: ASPROD1, Group: AME08, ID# [id number], Process claim through [employer], for questions: . THIS IS NOT INSURANCE.] propranolol 40 mg tablet RxNorm: 330127 1 Tablet(s) PO BID 12/08/19 14 06/04/2014 Inactive [SAVINGS FOR UNINSURED PATIE NTS -- BIN:724564, PCN: ASPROD1, Group: AME08, ID# [id number], Process claim through [employer], for questions: . THIS IS NOT INSURANCE.] buspirone 5 mg tablet RxNorm: 073463 1 Tablet(s) PO TID 12/02/2013 Inactive omeprazole 40 mg capsule,delayed release RxNorm: 223651 1 Capsu le(s) PO BID 11/25/2013 11/19/2014 Inactive [SAVINGS FOR UNINSUR ED PATIENTS -- BIN:249134, PCN: ASPROD1, Group: AME08, ID# [id number], Process claim through [employer], for questions: . THIS IS NOT INSURANCE.] ropinirole 2 mg tablet RxNorm: 399132 1 Tablet(s) PO QHS 11/10/2013 0 05/08/2014 Inactive [SAVINGS FOR UNINSURED PATIENTS -- BIN:0 29295, PCN: ASPROD1, Group: AME08, ID# [id number], Process claim through [employer], for questions: . THIS IS NOT INSURANCE.] Cipro 500 mg tablet RxNorm: 585365 1 Tablet(s) PO BID 10/21/201312/03 Inactive [SAVINGS FOR UNINSURED PATIENTS -- BIN:0 00987, PCN: ASPROD1, Group: AME08, ID# [id number], Process claim through [employer], for questions: . THIS IS NOT INSURANCE.] hydroxyzine HCl 25 mg tablet RxNorm: 882313 1 Tablet(s) PO Q4-6 H as needed 10/05/2013 01/04/2016 Inactive [SAVINGS FOR UNINSUR ED PATIENTS -- BIN:859333, PCN: ASPROD1, Group: AME08, ID# [id number], Process claim through [employer], for questions: . THIS IS NOT INSURANCE.] triamcinolone acetonide 0.1 % topical cream RxNorm: 9332307 Appl ication TOP BID 10/05/2013 09/01/2014 Inactive [SAVINGS FOR UNINSUR ED PATIENTS -- BIN:263880, PCN: ASPROD1, Group: AME08, ID# [id number], Process claim through [employer], for questions: . THIS IS NOT INSURANCE.] albuterol sulfate HFA 90 mcg/actuation aerosol inhaler RxNor m: 2643515 2 Puff(s) INH Q4H as needed for cough 10/01/2013 12/22/2013 Inactive [MAKSIM INGS FOR UNINSURED PATIENTS -- BIN:014112, PCN: ASPROD1, Group: AME08, ID# [id number], Process claim through [employer], for questions: . THIS IS NOT INSURANCE.] propranolol 40 mg tablet RxNorm: 903642 1 Tablet(s) PO BID 09/02/19 14 11/29/2013 Inactive [SAVINGS FOR UNINSURED PATIE NTS -- BIN:237966, PCN: ASPROD1, Group: AME08, ID# [id number], Process claim through [employer], for questions: . THIS IS NOT INSURANCE.] propranolol 40 mg tablet RxNorm: 934705 1 Tablet(s) PO BID 08/05/19 14 08/31/2013 Inactive [SAVINGS FOR UNINSURED PATIE NTS -- BIN:864207, PCN: ASPROD1, Group: AME08, ID# [id number], Process claim through [employer], for questions: . THIS IS NOT INSURANCE.] Toprol XL 50 mg tablet,extended release RxNorm: 941247 1 Tablet (s) PO QHS 07/23/2013 08/03/2013 Inactive Macrobid 100 mg capsule RxNorm: 304624 1 Capsule(s) PO BID 07/04/19 14 07/09/2013 Inactive Toprol XL 50 mg tablet,extended release RxNorm: 428940 1 Tablet (s) PO QHS 05/28/2013 06/26/2013 Inactive ciprofloxacin 500 mg tablet RxNorm: 210133 1 Tablet(s) PO BID 05/2706/02/2013 Inactive Bystolic 5 mg tablet RxNorm: 429973 1 Tablet(s) PO QD 05/27/201305/03 Inactive ropinirole 2 mg tablet RxNorm: 617932 1 Tablet(s) PO QHS 04/22/2013 0 11/09/2013 Inactive Cipro 250 mg tablet RxNorm: 341872 1 Tablet(s) PO BID 04/06/201311/2013 Inactive ropinirole 2 mg tablet RxNorm: 906597 1 Tablet(s) PO QHS 02/17/2013 0 04/21/2013 Inactive Amaryl 2 mg tablet RxNorm: 953245 1 Tablet(s) PO QAM 11/11/201211/10 Inactive Amaryl 2 mg tablet RxNorm: 792058 1 Tablet(s) PO QAM 11/11/201204/05 Inactive omeprazole 40 mg capsule,delayed release RxNorm: 774810 1 Capsu le(s) PO BID 08/14/2012 08/08/2013 Inactive Bystolic 5 mg tablet RxNorm: 759146 1 Tablet(s) PO QD 08/14/201205/03 Inactive propranolol 60 mg tablet RxNorm: 656500 Tablet(s) PO TAKE 1 TAB LET TWICE DAILY 08/01/2012 09/01/2012 Inactive Bystolic 5 mg tablet RxNorm: 372240 1 Tablet(s) PO QD 07/21/201207/02 Inactive Bystolic 5 mg tablet RxNorm: 643169 1 Tablet(s) PO QD 07/21/201207/03 Inactive Prilosec 40 mg capsule,delayed release RxNorm: 090610 1 Capsule (s) PO BID 06/24/2012 07/21/2012 Inactive buspirone 10 mg tablet RxNorm: 877995 1 Tablet(s) PO TID 05/08/2012 0 05/23/2016 Inactive Valium 10 mg tablet RxNorm: 859142 1 Tablet(s) PO BID 04/02/201207/03 Inactive Endocet 10 mg-325 mg tablet RxNorm: 3187265 1 Tablet(s) PO QID 03/0607/21/2012 Inactive as needed for severe pain Valium 10 mg tablet RxNorm: 544017 1 Tablet(s) PO BID 02/27/2012 No S top Date Active Endocet 10 mg-325 mg tablet RxNorm: 0024696 1 Tablet(s) PO QID 02/0203/27/2012 Inactive as needed for severe pain Endocet 10 mg-325 mg tablet RxNorm: 2951762 1 Tablet(s) PO QID 01/0302/26/2012 Inactive as needed for severe pain Valium 10 mg tablet RxNorm: 036562 1 Tablet(s) PO BID 01/29/2012 No S top Date Active Protonix 40 mg tablet,delayed release RxNorm: 667468 1 Tablet(s ) PO QD 01/28/2012 07/21/2012 Inactive metformin ER 500 mg tablet,extended release 24 hr RxNorm: 86 0977 1 Tablet(s) PO QD 12/26/2011 07/20/2012 Inactive Trazadone 150 mg Tablet RxNorm: 1 Tablet(s) PO QHS prn sleep 1 04/23/2012 Inactive Endocet 10 mg-325 mg tablet RxNorm: 9114531 1 Tablet(s) PO QID 12/0301/24/2012 Inactive as needed for severe pain Nexium 40 mg capsule,delayed release RxNorm: 008477 1 Capsule(s ) PO QD 12/26/2011 01/27/2012 Inactive Symbicort 160 mcg-4.5 mcg/actuation HFA Aerosol Inhaler RxNo rm: 5472627 2 Puff(s) INH BID 12/04/2011 07/21/2012 Inactive Endocet 10 mg-325 mg tablet RxNorm: 4994051 1 Tablet(s) PO QID 11/0312/25/2011 Inactive as needed for severe pain metformin ER 500 mg tablet,extended release 24 hr RxNorm: 86 0977 1 Tablet(s) PO QD 11/20/2011 12/19/2011 Inactive metformin ER 500 mg tablet,extended release 24 hr RxNorm: 86 0977 1 Tablet(s) PO QD 11/20/2011 11/19/2011 Inactive amitriptyline 100 mg tablet RxNorm: 977333 Tablet(s) PO QHS 1 a nd / tabs QHS 11/12/2011 11/13/2011 Inactive Valium 10 mg tablet RxNorm: 433266 1 Tablet(s) PO BID 11/09/2011 No S top Date Active Endocet 10 mg-325 mg tablet RxNorm: 3390255 1 Tablet(s) PO QID 10/0211/14/2011 Inactive as needed for severe pain Aricept 10 mg Tab RxNorm: 383076 1 Tablet(s) PO QD 10/05/2011 013 Inactive Valium 10 mg tablet RxNorm: 008540 1 Tablet(s) PO BID 10/05/2011 No S top Date Active Endocet 10 mg-325 mg Tab RxNorm: 7724531 1 Tablet(s) PO QID 012 10/09/2011 Inactive as needed for severe pain Aricept 10 mg Tab RxNorm: 782614 1 Tablet(s) PO QD 08/14/2011 012 Inactive Endocet 10 mg-325 mg Tab RxNorm: 0342979 1 Tablet(s) PO QID 012 08/31/2011 Inactive as needed for severe pain Valium 10 mg Tab RxNorm: 330858 1 Tablet(s) PO BID 08/02/2011 No Stop Date Active propranolol 60 mg tablet RxNorm: 538118 1 Tablet(s) PO BID 07/26/19 12 09/11/2011 Inactive amitriptyline 100 mg tablet RxNorm: 314303 Tablet(s) PO QHS 1 a nd 1/2 tabs QHS 06/20/2011 09/11/2011 Inactive buspirone 10 mg tablet RxNorm: 535241 1 Tablet(s) PO BID 06/18/2011 0 09/15/2011 Inactive propranolol 60 mg Tab RxNorm: 654453 1 Tablet(s) PO BID 06/18/2011 Inactive gabapentin 800 mg Tab RxNorm: 872655 1 Tablet(s) PO BID 06/18/2011 Inactive ropinirole 2 mg tablet RxNorm: 254800 1 Tablet(s) PO QHS 05/29/2011 0 08/26/2011 Inactive trimethoprim 100 mg Tab RxNorm: 614023 1 Tablet(s) PO QHS 05/29/2011 07/21/2012 Inactive Endocet 10 mg-325 mg Tab RxNorm: 6293722 1 Tablet(s) PO QID 012 2011 Inactive as needed for severe pain Valium 10 mg Tab RxNorm: 636710 1 Tablet(s) PO QHS N eed to take med as prescribed. this is a 40 day RX. No early fills. 05/17/2011 05/20/2018 Inactive propranolol 60 mg Tab RxNorm: 296073 1 Tablet(s) PO BID 04/16/2011 Inactive Neurontin 800 mg Tab RxNorm: 447480 1 Tablet(s) PO QHS 04/05/201103/2011 Inactive Endocet 10 mg-325 mg Tab RxNorm: 8021338 1 Tablet(s) PO QID 012 05/02/2011 Inactive as needed for severe pain oxycodone-acetaminophen 10 mg-325 mg tablet RxNorm: 5652501 1 Ta blet(s) PO Q4H 03/28/2011 05/19/2012 Inactive Valium 10 mg Tab RxNorm: 528972 1 Tablet(s) PO QHS 03/28/2011 012 Inactive buspirone 10 mg Tab RxNorm: 594910 1 Tablet(s) PO BID 03/27/201106/02 Inactive propranolol 60 mg Tab RxNorm: 418327 1 Tablet(s) PO BID 03/19/2011 Inactive Klor-Con M20 20 mEq Tab RxNorm: 5419762 1 Tablet(s) PO QD 03/19/2011 07/21/2012 Inactive Aricept 10 mg Tab RxNorm: 412114 1 Tablet(s) PO QD 02/27/2011 012 Inactive propranolol 60 mg Tab RxNorm: 548522 1 Tablet(s) PO BID 02/19/2011 Inactive omeprazole 40 mg capsule,delayed release RxNorm: 450306 1 Capsu le(s) PO BID 01/24/2011 05/23/2011 Inactive clindamycin 300 mg capsule RxNorm: 745258 1 Capsule(s) PO TID 01/2402/02/2011 Inactive propranolol 60 mg Tab RxNorm: 548766 1 Tablet(s) PO BID 01/22/2011 No Stop Date Active nystatin 100,000 unit/g Topical Cream RxNorm: 698544 Applicatio n TOP BID 01/15/2011 01/14/2011 Inactive to rash for 2-4 week s Diflucan 200 mg Tab RxNorm: 145640 1 Tablet(s) PO QD 01/15/201101/28 Inactive buspirone 10 mg Tab RxNorm: 442506 1 Tablet(s) PO BID 01/08/201103/05 Inactive Valium 10 mg Tab RxNorm: 902005 1 Tablet(s) PO QHS 01/05/2011 012 Inactive Diflucan 200 mg Tab RxNorm: 085025 1 Tablet(s) PO QD 01/01/201101/14 Inactive Diflucan 200 mg Tab RxNorm: 329898 1 Tablet(s) PO QD 12/18/201012/31 Inactive Valium 10 mg Tab RxNorm: 522313 1 Tablet(s) PO QHS 12/12/2010 011 Inactive Diflucan 200 mg Tab RxNorm: 022737 1 Tablet(s) PO QD 12/07/201012/18 Inactive Aricept 10 mg Tab RxNorm: 389209 1 Tablet(s) PO QD 11/20/2010 011 Inactive ropinirole 1 mg Tab RxNorm: 670381 1 Tablet(s) PO QHS 11/16/201005/03 Inactive enalapril maleate 5 mg Tab RxNorm: 857490 1 Tablet(s) PO QD 011 05/20/2018 Inactive buspirone 10 mg Tab RxNorm: 593008 1 Tablet(s) PO BID 11/16/201012/02 Inactive Valium 10 mg Tab RxNorm: 017013 1 Tablet(s) PO QHS 11/07/2010 011 Inactive Pyridium 100 mg Tab RxNorm: 5727298 1 Tablet(s) PO TID 11/02/201004/2010 Inactive Macrobid 100 mg Cap RxNorm: 8304627 1 Capsule(s) PO BID 11/02/2010 Inactive buspirone 10 mg Tab RxNorm: 744804 1 Tablet(s) PO QHS 10/18/201005/02 Inactive propranolol 60 mg Tab RxNorm: 305220 1 Tablet(s) PO BID 09/18/2010 Inactive Valium 10 mg Tab RxNorm: 179416 1 Tablet(s) PO QHS 09/05/2010 011 Inactive Aricept 10 mg Tab RxNorm: 761156 1 Tablet(s) PO QD 08/14/2010 011 Inactive Valium 10 mg Tab RxNorm: 875324 1 Tablet(s) PO QHS 06/26/2010 011 Inactive ropinirole 1 mg Tab RxNorm: 755453 1 Tablet(s) PO QHS 06/19/201010/02 Inactive omeprazole 40 mg Cap, delayed release RxNorm: 500965 1 Capsule( s) PO QD 06/07/2010 10/04/2010 Inactive Endocet 10 mg-325 mg Tab RxNorm: 9239313 1 Tablet(s) PO QID as needed for severe pain 06/07/2010 03/07/2011 Inactive Endocet 10 mg-325 mg Tab RxNorm: 0540978 1 Tablet(s) PO QID as needed for severe pain 05/04/2010 06/02/2010 Inactive Valium 10 mg Tab RxNorm: 177882 1 Tablet(s) PO QHS 05/01/2010 02/27/2 011 Inactive propranolol 60 mg Tab RxNorm: 429700 1 Tablet(s) PO BID 04/03/2010 Inactive Valium 10 mg Tab RxNorm: 790660 1 Tablet(s) PO QHS 03/28/2010 011 Inactive omeprazole 40 mg Cap, Delayed Release RxNorm: 723032 1 Capsule( s) PO QD 03/28/2010 06/06/2010 Inactive Endocet 10 mg-325 mg Tab RxNorm: 0032834 1 Tablet(s) PO QID prn ari n 03/27/2010 05/20/2018 Inactive Valium 10 mg Tab RxNorm: 941066 1 Tablet(s) PO QHS 02/20/2010 011 Inactive Diflucan 100 mg Tab RxNorm: 294954 1 Tablet(s) PO BID 01/23/201003/2009 Inactive Diflucan 100 mg Tab RxNorm: 381852 1 Tablet(s) PO BID 01/05/201001/02 Inactive Aricept 10 mg Tab RxNorm: 000911 1 Tablet(s) PO QD 12/01/2009 011 Inactive OxyContin 20 mg 12 hr Tab RxNorm: 1421319 1 Tablet(s) PO BID 200904/05/2010 Inactive oxycodone-acetaminophen 10 mg-325 mg Tab RxNorm: 5222076 1 Table t(s) PO Q4H 11/22/2009 11/26/2009 Inactive Phenergan 25 mg Tab RxNorm: 506101 1 Tablet(s) PO PRN MIGRAINE 11/0303/07/2011 Inactive Demerol 100 mg Tab RxNorm: 390614 1 Tablet(s) PO PRN MIGRAINE 11/2203/07/2011 Inactive Oxycodone-Acetaminophen 10 mg-325 mg Tab RxNorm: 4178626 1 Table t(s) PO Q4H 10/11/2009 10/15/2009 Inactive Percocet 10 mg-325 mg Tab RxNorm: 2616398 1 Tablet(s) PO Q4H 200910/24/2009 Inactive propranolol 60 mg Tab RxNorm: 857841 1 Tablet(s) PO BID 08/29/2009 Inactive Valium 10 mg Tab RxNorm: 537284 1 Tablet(s) PO QHS 08/16/2009 010 Inactive Keflex 500 mg Cap RxNorm: 201811 1 Capsule(s) PO BID 07/25/200907/31 Inactive Hydroxyzine 25 mg Tab RxNorm: 989447 1 Tablet(s) PO TID 07/25/2009 Inactive Prednisone 20 mg Tab RxNorm: 091448 1 Tablet(s) PO BID 07/25/2009 Inactive Demerol 100 mg Tab RxNorm: 949926 1 Tablet(s) PO PRN MIGRAINE 07/25 No Stop Date Active Ropinirole 1 mg Tab RxNorm: 270701 1 Tablet(s) PO HS 07/20/200902/14 Inactive Valium 10 mg Tab RxNorm: 948515 1 Tablet(s) PO QHS 07/18/2009 010 Inactive Endocet 10 mg-325 mg Tab RxNorm: 8605706 1 Tablet(s) PO TID 010 07/07/2009 Inactive Demerol 100 mg Tab RxNorm: 086156 1 Tablet(s) PO PRN MIGRAINE 06/08 No Stop Date Active Ropinirole 1 mg Tab RxNorm: 023769 1 Tablet(s) PO HS 05/16/200907/14 Inactive ipratropium-albuterol 0.5 mg-3 mg(2.5 mg base)/3 mL ne bulization soln RxNorm: 2315665 1 Unit Dose INH Q4H as needed No Start Date Active MagOx 400 mg (241.3 mg magnesium) tablet RxNorm: 879437 1 Table t(s) PO BID No Start Date Active Vitamin B12 1000mcg Tablet RxNorm: 1 Tablet(s) PO QD No Start Date Active Vitamin D3 5,000 unit tablet RxNorm: 940547 1 Tablet(s) PO QD No Star t Date Active Tylenol Arthritis Pain 650 mg tablet,extended release RxNorm : 1976144 1 Tablet(s) PO Q4H No Start Date Active Lotrimin AF 2 % topical powder RxNorm: 658029 1 Application TOP BID No Start Date Active enalapril maleate 5 mg Tab RxNorm: 792783 1 Tablet(s) PO QD No Star t Date 07/20/2012 Inactive Demerol 100 mg Tab RxNorm: 350812 Tablet(s) PO PRN MIGRAINE No Star t Date 06/02/2009 Inactive metformin 500 mg tablet RxNorm: 785041 1 Tablet(s) PO QD No Start D ate 04/05/2013 Inactive Breo Ellipta 100 mcg-25 mcg/dose powder for inhalation RxNor m: 4093161 1 Puff(s) INH BID No Start Date 01/04/2016 Inactive Mag-Oxide 400 mg Tab RxNorm: 625620 1 Tablet(s) PO QD No Start Date 0 07/21/2012 Inactive Cipro 500 mg Tab RxNorm: 744115 1 Tablet(s) PO QD No Start Date 04/05 Inactive Ativan 0.5 mg tablet RxNorm: 824762 1 Tablet(s) PO TID as needed No Start Date 05/06/2019 Inactive melatonin 3 mg tablet RxNorm: 194885 2 Tablet(s) PO QHS No Start Da te 08/19/2018 Inactive buspirone 10 mg Tab RxNorm: 735064 1 Tablet(s) PO QD No Start Date Inactive sucralfate 100 mg/mL Oral Susp RxNorm: 213300 2 Teaspoon(s) PO QID No Start Date 07/21/2012 Inactive hydrocodone 5 mg-acetaminophen 325 mg tablet RxNorm: 391913 1 Tablet(s) PO Q4H as needed No Start Date 08/19/2018 Inactive Amaryl 2 mg tablet RxNorm: 369177 1 Tablet(s) PO BID No Start Date Inactive OxyContin 20 mg 12 hr Tab RxNorm: 5532562 1 Tablet(s) PO BID No Sta rt Date 11/27/2009 Inactive propranolol 40 mg tablet RxNorm: 871817 1 Tablet(s) PO QID No Start Date 01/19/2018 Inactive Trazadone 150 mg Tablet RxNorm: 1-2 Tablet(s) PO QHS prn sleep No Start Date 08/09/2010 Inactive propranolol 60 mg Tab RxNorm: 250990 1/2 Tablet(s) PO BID No Start Date 01/21/2011 Inactive insulin NPH and regular human subcutaneous RxNorm: 2971216 subcu taneous No Start Date 11/20/2018 Inactive Ativan 0.5 mg tablet RxNorm: 899272 1 Tablet(s) PO QID No Start Date 06/18/2016 Inactive Vasotec 5 mg Tab RxNorm: 216260 1 Tablet(s) PO BID No Start Date 06/2011 Inactive Toprol XL 50 mg tablet,extended release RxNorm: 919246 1 Tablet (s) PO BID No Start Date 04/05/2013 Inactive Ativan 0.5 mg tablet RxNorm: 065341 1 Tablet(s) PO TID No Start Date 05/25/2016 Inactive Klor-Con M20 20 mEq Tab RxNorm: 1531631 1 Tablet(s) PO QD No Start Date 03/19/2011 Inactive sumatriptan 100 mg tablet RxNorm: 508703 1 Tablet(s) PO at headache onset--repeat in 2hrs if remains No Start Date 07/21/2012 Inactive propranolol 60 mg Tab RxNorm: 566114 1 Tablet(s) PO BID No Start Da te 08/28/2009 Inactive Cholestyramine Light 4 gram Oral Powder RxNorm: 7809377 1 Unit Dose PO QD in water No Start Date 07/21/2012 Inactive nystatin 100,000 unit/g Topical Powder RxNorm: 686182 Applicati on TOP BID No Start Date 07/21/2012 Inactive vitamin [id number] acid sublingual RxNorm: sublingual No Start Date 07/05/2013 Inactive cyclobenzaprine 5 mg tablet RxNorm: 580843 1/2-1 Tablet (s) PO TID as needed for muscle spasm No Start Date 07/18/2017 Inactive tramadol 50 mg tablet RxNorm: 451234 2 Tablet(s) PO TID as need ed for pain No Start Date 09/01/2014 Inactive aspirin 81 mg Tab RxNorm: 057221 1 Tablet(s) PO QOD No Start Date 04/2013 Inactive Vitamin B12 1000mcg Tablet RxNorm: 1 Tablet(s) PO QD No Start Date 07/18/2017 Inactive cholestyramine (with sugar) 4 gram oral powder RxNorm: 21802 3 1 Unit(s) PO QD as needed No Start Date 05/20/2018 Inactive ProAir HFA 90 mcg/Actuation Aerosol Inhaler RxNorm: 047370 2 Puff(s) INH Q4H prn shortness of breath No Start Date 07/21/2012 Inactive pravastatin 10 mg Tab RxNorm: 453730 1 Tablet(s) PO QD No Start Date 07/21/2012 Inactive gabapentin 800 mg Tab RxNorm: 901501 1 Tablet(s) PO BID No Start Da te 06/03/2011 Inactive Endocet 10 mg-325 mg Tab RxNorm: 1242345 1 Tablet(s) PO TID No Star t Date 06/02/2009 Inactive Naproxen 500 mg Tab RxNorm: 617055 1 Tablet(s) PO BID No Start Date 0 04/05/2010 Inactive Valium 10 mg Tab RxNorm: 167511 1 Tablet(s) PO BID No Start Date 07/04 Inactive enalapril maleate 5 mg Tab RxNorm: 393949 1 Tablet(s) PO QD No Star t Date 11/15/2010 Inactive doxepin 10 mg capsule RxNorm: 4162289 2 Capsule(s) PO QHS No Start Date 09/17/2018 Inactive MS Contin 15 mg Tab RxNorm: 422612 1 Tablet(s) PO BID No Start Date 0 09/18/2010 Inactive buspirone 5 mg tablet RxNorm: 282520 1 Tablet(s) PO TID No Start Da te 12/01/2013 Inactive [place] 3 Fish Oil Cap RxNorm: 1 Capsule(s) PO QD No Start Date 07/03 Inactive enalapril maleate 5 mg Tab RxNorm: 322151 1/2 Tablet(s) PO QD No St art Date 03/07/2011 Inactive Lyrica 75 mg capsule RxNorm: 806575 1 Capsule(s) PO QHS No Start Da te 02/08/2014 Inactive Lopressor 100 mg tablet RxNorm: 875752 1 Tablet(s) PO BID No Start Date 06/08/2018 Inactive Lantus Solostar U-100 Insulin 100 unit/mL (3 mL) subcu taneous pen RxNorm: 815327 45 Unit(s) SQ QAM No Start Date 05/20/2018 Inactive aspirin 81 mg tablet RxNorm: 319952 1 Tablet(s) PO QD No Start Date 0 09/14/2015 Inactive diltiazem CD 240 mg capsule,extended release 24 hr RxNorm: 8 64458 1 Capsule(s) PO QD No Start Date 05/25/2019 Inactive insulin NPH isophane U-100 human subcutaneous RxNorm: 743822 beckwith bcutaneous No Start Date 04/20/2019 Inactive sumatriptan 100 mg tablet RxNorm: 956935 1 Tablet(s) PO at headache onset. May repeat 1 in two hours if headache remains. Max of 2 per 24 hours No Start Date 04/01/2018 Inactive gabapentin 300 mg capsule RxNorm: 078616 1 Capsule(s) PO QHS No Sta rt Date 02/04/2018 Inactive Topamax 25 mg Tab RxNorm: 777369 Oral No Start Date 03/07/2011 In active Senokot-S 8.6 mg-50 mg Tab RxNorm: 1280030 1 Tablet(s) PO QD No Sta rt Date 03/07/2011 Inactive metformin ER 500 mg 24 hr tablet,extended release RxNorm: 18 63250 1 Tablet(s) PO QD No Start Date 05/20/2018 Inactive Symbicort 80 mcg-4.5 mcg/actuation HFA Aerosol Inhaler RxNor m: 7780147 2 Puff(s) INH BID No Start Date 04/05/2013 Inactive metoprolol tartrate 25 mg tablet RxNorm: 844728 1 Tablet(s) PO BID No Start Date 05/20/2019 Inactive propranolol 60 mg Tab RxNorm: 321305 1/2 Tablet(s) PO BID No Start Date 07/21/2012 Inactive metformin ER 500 mg 24 hr tablet,extended release RxNorm: 18 74488 2 Tablet(s) PO QD No Start Date 12/16/2017 Inactive Insulin Syringe 1 mL 29 gauge x 1/2" RxNorm: 2 s yringes daily with insulin Dx: E11.65 No Start Date 10/07/2018 Inactive Amitriptyline 75 mg Tab RxNorm: 706953 1 Tablet(s) PO QHS No Start Date 10/23/2009 Inactive donepezil 10 mg Tab RxNorm: 244981 1 Tablet(s) PO QD No Start Date Inactive Lantus Solostar U-100 Insulin 100 unit/mL (3 mL) subcu taneous pen RxNorm: 219643 36 Unit(s) SQ QAM No Start Date 12/24/2017 Inactive Miacalcin 200 unit/Actuation Nasal [place] Aerosol RxNorm: 261 204 1 [place] NASAL QD Alternate nostrils each day No Start Date 04/05/2010 Inactive Amitriptyline 150 mg Tab RxNorm: 481983 1 Tablet(s) PO QHS No Start Date 01/04/2010 Inactive Bystolic 5 mg tablet RxNorm: 345286 1 Tablet(s) PO QD No Start Date 0 08/13/2012 Inactive Aricept 10 mg Tab RxNorm: 672911 1 Tablet(s) PO QD No Start Date 11/03 Inactive Lantus Solostar U-100 Insulin 100 unit/mL (3 mL) subcu taneous pen RxNorm: 594191 50 Unit(s) SQ QAM No Start Date 08/27/2018 Inactive albuterol sulfate 2.5 mg/3 mL (0.083 %) Neb Solution RxNorm: 132651 1 Unit Dose INH QID as needed No Start Date 08/23/2015 Inactive Symbicort 160 mcg-4.5 mcg/actuation HFA Aerosol Inhaler RxNo rm: 7888398 2 Puff(s) INH BID No Start Date 12/03/2011 Inactive Savella 50 mg Tab RxNorm: 001020 1 Tablet(s) PO BID No Start Date 04/2010 Inactive amitriptyline 100 mg Tab RxNorm: 007069 1 1/2 Tablet(s) PO QHS No S tart Date 06/19/2011 Inactive nystatin 100,000 unit/g Topical Cream RxNorm: 886639 Ap plication TOP BID to rash for 2-4 weeks No Start Date 01/14/2011 Inactive Trelegy Ellipta 100 mcg-62.5 mcg-25 mcg powder for inhalatio n RxNorm: 7559515 1 Puff(s) INH QD No Start Date 12/16/2017 Inactive Lyrica 150 mg capsule RxNorm: 358998 1 Capsule(s) PO QHS No Start D ate 12/04/2015 Inactive sennosides 8.6 mg tablet RxNorm: 267142 1 Tablet(s) PO BID No Start Date 09/07/2018 Inactive metformin ER 500 mg tablet,extended release 24 hr RxNorm: 86 0975 1 Tablet(s) PO QD No Start Date 10/22/2017 Inactive Fish Oil 1,000 mg Cap RxNorm: 1 Capsule(s) PO QD No Start Date 06/2011 Inactive Zyrtec 10 mg Tab RxNorm: 4034522 1 Tablet(s) PO QD No Start Date 07/03 Inactive albuterol sulfate HFA 90 mcg/actuation aerosol inhaler RxNor m: 1150836 2 Puff(s) INH Q4H as needed for cough No Start Date 09/30/2013 Inactive trazodone 150 mg tablet RxNorm: 705446 1 Tablet(s) PO QHS No Start Date 07/21/2012 Inactive Spiriva with HandiHaler 18 mcg & inhalation capsules RxNorm: 305334 1 Capsule(s) INH QD No Start Date 04/05/2013 Inactive Coreg 3.125 mg Tab RxNorm: 984526 1 Tablet(s) PO BID No Start Date Inactive Phenergan 25 mg Tab RxNorm: 071105 Tablet(s) PO PRN MIGRAINE No Sta rt Date 11/21/2009 Inactive Vitamin D 50,000 unit Cap RxNorm: 0728759 1 Capsule(s) PO QW No Sta rt Date 03/07/2011 Inactive Januvia 100 mg tablet RxNorm: 319315 1 Tablet(s) PO QD No Start Date 10/25/2015 Inactive Eliquis 5 mg tablet RxNorm: 2770529 1 Tablet(s) PO BID No Start Date 08/19/2018 Inactive Advair Diskus 500 mcg-50 mcg/Dose for Inhalation RxNorm: 047365 1 INH BID No Start Date 07/21/2012 Inactive Vitamin D3 5,000 unit tablet RxNorm: 633531 1 Tablet(s) PO QD No St art Date 07/18/2017 Inactive Amaryl 2 mg tablet RxNorm: 728142 1 Tablet(s) PO QD No Start Date 06/2015 Inactive Actos 30 mg tablet RxNorm: 726228 1 Tablet(s) PO QD No Start Date Inactive promethazine 25 mg tablet RxNorm: 544043 1 Tablet(s) PO Q4H prn N/V No Start Date 07/21/2012 Inactive ProAir HFA 90 mcg/actuation Aerosol Inhaler RxNorm: 776955 2 Puff(s) INH Q4H prn dyspnea No Start Date 07/21/2012 Inactive Dexilant 60 mg Capsule RxNorm: 979185 1 Capsule(s) PO QD No Start D ate 01/27/2012 Inactive Lantus Solostar U-100 Insulin 100 unit/mL (3 mL) subcu taneous pen RxNorm: 702343 38 Unit(s) SQ QAM No Start Date 05/20/2018 Inactive Valium 10 mg Tab RxNorm: 046612 1 Tablet(s) PO QHS AND PRN No Start Date 10/24/2009 Inactive ZOFRAN ODT 8 mg disintegrating tablet RxNorm: 522029 1 Tablet(s ) PO Q6H No Start [...] Date S ervice Location MICROALBUMIN URINE RANDOM 46583 MICRL MG/L 14.9 MG/L Unknown MICROALBUMIN URINE RANDOM 04676 XM.ALB/CRE 6.1 MG/GCR Unknown MICROALBUMIN URINE RANDOM 98624 CREAT MG/D 243 MG/DL Unknown MICROALBUMIN URINE RANDOM 21514 CRE/100 2.43 G/L 03/05 Unknown PROTEIN/CREAT URINE WITH RATIO 34808|57057 PROT R U 14 MG/D L 04/01/2014 Unknown PROTEIN/CREAT URINE WITH RATIO 53209|04121 CREAT R U 254 MG/ DL 04/01/2014 Unknown PROTEIN/CREAT URINE WITH RATIO 45737|59435 XRATIO P/C 55 MG/ G 04/01/2014 Unknown URINALYSIS 73839 PROTEIN UR NEG 04/28/2010 Unknown URINALYSIS 28856 HEMGLBN UR NEG 04/28/2010 Unknown URINALYSIS 43687 GLUCOSE UR NEG 04/28/2010 Unknown URINALYSIS 35009 KETONES UR NEG 04/28/2010 Unknown URINALYSIS 65554 PH U 5.5 04/28/2010 Unknown URINALYSIS 15974 SP GR U 1.025 04/28/2010 Unknown URINALYSIS 92317 BILRUBN UR NEG 04/28/2010 Unknown URINALYSIS 63368 LEUKO UR 2+ 04/28/2010 Unknown URINALYSIS 08198 NITRITE UR NEG 04/28/2010 Unknown MICR CUL? [id number] WBC/HPF 6-10 04/28/2010 Unknown MICR CUL? [id number] RBC/HPF 0-5 04/28/2010 Unknown MICR CUL? [id number] HYAL CAST 16-25 04/28/2010 Unknown MICR CUL? [id number] SP TO YOLIE? NO 04/28/2010 Unknown MICR CUL? [id number] APPEAR UR NORMAL 04/28/2010 Unknown MICR CUL? [id number] SQ EPI/LPF FEW 04/28/2010 Unknown Procedures Procedure Codes Date URINALYSIS NONAUTO W/O SCOPE CPT-4: 46865 04/16/2019 URINE CULTURE/ COLONY COUNT CPT-4: 23350 04/16/2019 CEFTRIAXONE SODIUM INJECTION CPT-4: J0696 04/16/2019 THER/PROPH/DIAG INJ SC/IM CPT-4: 02241 04/16/2019 DRAIN/INJECT JOINT/BURSA CPT-4: 17489 01/22/2019 TRIAMCINOLONE ACET INJ NOS CPT-4: J3301 01/22/2019 DEXAMETHASONE SODIUM PHOS CPT-4: J1100 01/22/2019 URINE CULTURE/ COLONY COUNT CPT-4: 73784 01/07/2019 URINALYSIS NONAUTO W/O SCOPE CPT-4: 00220 01/07/2019 CEFTRIAXONE SODIUM INJECTION CPT-4: J0696 01/07/2019 THER/PROPH/DIAG INJ SC/IM CPT-4: 21038 01/07/2019 FLU VACC PRSV FREE INC ANTIG 65 AND OLDER CPT-4: 27849 12/24/2018 FLU VACC PRSV FREE INC ANTIG 65 AND OLDER CPT-4: 52826 12/24/2018 ADMIN INFLUENZA VIRUS VAC CPT-4: G0008 12/24/2018 THER/PROPH/DIAG INJ SC/IM CPT-4: 27802 11/04/2018 KETOROLAC TROMETHAMINE INJ CPT-4: J1885 11/04/2018 PROMETHAZINE HCL INJECTION CPT-4: J2550 11/04/2018 PPPS, subseq visit CPT-4: G0439 09/18/2018 THER/PROPH/DIAG INJ SC/IM CPT-4: 79169 04/01/2018 KETOROLAC TROMETHAMINE INJ CPT-4: J1885 04/01/2018 PROMETHAZINE HCL INJECTION CPT-4: J2550 04/01/2018 URINE CULTURE/ COLONY COUNT CPT-4: 48779 03/17/2018 URINALYSIS NONAUTO W/O SCOPE CPT-4: 01145 03/17/2018 FLU VACC PRSV FREE INC ANTIG 65 AND OLDER CPT-4: 97542 12/17/2017 PNEUMOCOCCAL VACC 23 RANDALL IM CPT-4: 16143 12/17/2017 ADMIN INFLUENZA VIRUS VAC CPT-4: G0008 12/17/2017 ADMIN PNEUMOCOCCAL VACCINE CPT-4: G0009 12/17/2017 PPPS, subseq visit CPT-4: G0439 09/17/2017 THER/PROPH/DIAG INJ SC/IM CPT-4: 13371 08/26/2017 KETOROLAC TROMETHAMINE INJ CPT-4: J1885 08/26/2017 PROMETHAZINE HCL INJECTION CPT-4: J2550 08/26/2017 URINALYSIS NONAUTO W/O SCOPE CPT-4: 89398 07/19/2017 URINE CULTURE/ COLONY COUNT CPT-4: 55042 07/19/2017 CEFTRIAXONE SODIUM INJECTION CPT-4: J0696 07/19/2017 THER/PROPH/DIAG INJ SC/IM CPT-4: 49511 07/19/2017 THER/PROPH/DIAG INJ SC/IM CPT-4: 77992 07/19/2017 TRIAMCINOLONE ACET INJ NOS CPT-4: J3301 07/19/2017 PRESCRIP TRANSMIT VIA ERX SY CPT-4: G8553 05/07/2017 PRESCRIP TRANSMIT VIA ERX SY CPT-4: G8553 02/22/2017 PRESCRIP TRANSMIT VIA ERX SY CPT-4: G8553 01/23/2017 FLU VACC PRSV FREE INC ANTIG 65 AND OLDER CPT-4: 23249 12/20/2016 PNEUMOCOCCAL VACC 13 RANDALL IM CPT-4: 63535 12/20/2016 ADMIN INFLUENZA VIRUS VAC CPT-4: G0008 12/20/2016 ADMIN PNEUMOCOCCAL VACCINE CPT-4: G0009 12/20/2016 URINALYSIS NONAUTO W/O SCOPE CPT-4: 84352 10/08/2016 URINE CULTURE/ COLONY COUNT CPT-4: 45224 10/08/2016 PRESCRIP TRANSMIT VIA ERX SY CPT-4: G8553 10/08/2016 PRESCRIP TRANSMIT VIA ERX SY CPT-4: G8553 09/19/2016 PRESCRIP TRANSMIT VIA ERX SY CPT-4: G8553 08/20/2016 PRESCRIP TRANSMIT VIA ERX SY CPT-4: G8553 02/29/2016 KETOROLAC TROMETHAMINE INJ CPT-4: J1885 02/02/2016 THER/PROPH/DIAG INJ SC/IM CPT-4: 57065 02/02/2016 PROMETHAZINE HCL INJECTION CPT-4: J2550 02/02/2016 PRESCRIP TRANSMIT VIA ERX SY CPT-4: G8553 02/02/2016 FLU VACC PRSV FREE INC ANTIG 65 AND OLDER CPT-4: 50650 01/05/2016 PPPS, subseq visit CPT-4: G0439 01/05/2016 ADMIN INFLUENZA VIRUS VAC CPT-4: G0008 01/05/2016 URINE CULTURE/ COLONY COUNT CPT-4: 58681 12/05/2015 URINALYSIS NONAUTO W/O SCOPE CPT-4: 22254 12/05/2015 PRESCRIP TRANSMIT VIA ERX SY CPT-4: G8553 12/05/2015 PRESCRIP TRANSMIT VIA ERX SY CPT-4: G8553 10/26/2015 URINALYSIS NONAUTO W/O SCOPE CPT-4: 40308 10/05/2015 URINE CULTURE/ COLONY COUNT CPT-4: 64118 10/05/2015 PRESCRIP TRANSMIT VIA ERX SY CPT-4: G8553 10/05/2015 SERVICE REQUIRED FOR PMD CPT-4: G0372 09/15/2015 PRESCRIP TRANSMIT VIA ERX SY CPT-4: G8553 09/15/2015 SPECIAL REPORTS OR FORMS CPT-4: 55504 08/25/2015 PRESCRIP TRANSMIT VIA ERX SY CPT-4: G8553 07/05/2015 URINALYSIS NONAUTO W/O SCOPE CPT-4: 55593 03/30/2015 ASSAY, GLUCOSE, BLOOD QUANT CPT-4: 79861 03/30/2015 URINE CULTURE/ COLONY COUNT CPT-4: 43948 03/30/2015 PRESCRIP TRANSMIT VIA ERX SY CPT-4: G8553 03/30/2015 PRESCRIP TRANSMIT VIA ERX SY CPT-4: G8553 02/03/2015 FLU VACC PRSV FREE INC ANTIG 65 AND OLDER CPT-4: 04343 12/29/2014 ADMIN INFLUENZA VIRUS VAC CPT-4: G0008 12/29/2014 PRESCRIP TRANSMIT VIA ERX SY CPT-4: G8553 12/29/2014 PRESCRIP TRANSMIT VIA ERX SY CPT-4: G8553 09/02/2014 PROTEIN/CREAT URINE WITH RATIO CPT-4: 40262|[id number] 5 MICROALBUMIN QUANTITATIVE CPT-4: 30161 04/01/2014 PRESCRIP TRANSMIT VIA ERX SY CPT-4: G8553 03/16/2014 PRESCRIP TRANSMIT VIA ERX SY CPT-4: G8553 03/09/2014 THER/PROPH/DIAG INJ SC/IM CPT-4: 59018 03/01/2014 TRIAMCINOLONE ACET INJ NOS CPT-4: J3301 03/01/2014 PRESCRIP TRANSMIT VIA ERX SY CPT-4: G8553 02/09/2014 URINE CULTURE/ COLONY COUNT CPT-4: 66235 10/30/2013 URINALYSIS NONAUTO W/O SCOPE CPT-4: 83600 10/21/2013 URINE CULTURE/ COLONY COUNT CPT-4: 06755 10/21/2013 DESTRUCT PREMALG LESION (Cryosurgery) CPT-4: 05318 PRESCRIP TRANSMIT VIA ERX SY CPT-4: G8553 10/05/2013 URINALYSIS NONAUTO W/O SCOPE CPT-4: 82080 08/04/2013 URINE CULTURE/ COLONY COUNT CPT-4: 99249 08/04/2013 PRESCRIP TRANSMIT VIA ERX SY CPT-4: G8553 08/04/2013 THER/PROPH/DIAG INJ SC/IM CPT-4: 80606 07/13/2013 TRIAMCINOLONE ACET INJ NOS CPT-4: J3301 07/13/2013 PRESCRIP TRANSMIT VIA ERX SY CPT-4: G8553 05/27/2013 URINALYSIS NONAUTO W/O SCOPE CPT-4: 65045 05/25/2013 URINE CULTURE/ COLONY COUNT CPT-4: 91113 05/25/2013 THER/PROPH/DIAG INJ SC/IM CPT-4: 57738 05/04/2013 VITAMIN B12 INJECTION CPT-4: J3420 05/04/2013 THER/PROPH/DIAG INJ SC/IM CPT-4: 26967 04/17/2013 VITAMIN B12 INJECTION CPT-4: J3420 04/17/2013 THER/PROPH/DIAG INJ SC/IM CPT-4: 31526 04/17/2013 METHYLPREDNISOLONE 40 MG INJ CPT-4: J1030 04/17/2013 TRIAMCINOLONE ACET INJ NOS CPT-4: J3301 04/17/2013 URINALYSIS NONAUTO W/O SCOPE CPT-4: 38834 04/06/2013 URINE CULTURE/ COLONY COUNT CPT-4: 93133 04/06/2013 PRESCRIP TRANSMIT VIA ERX SY CPT-4: G8553 04/06/2013 KETOROLAC TROMETHAMINE INJ CPT-4: J1885 06/25/2012 PROMETHAZINE HCL INJECTION CPT-4: J2550 06/25/2012 THER/PROPH/DIAG INJ SC/IM CPT-4: 52194 06/25/2012 THER/PROPH/DIAG INJ SC/IM CPT-4: 72081 06/24/2012 METHYLPREDNISOLONE 40 MG INJ CPT-4: J1030 06/24/2012 TRIAMCINOLONE ACET INJ NOS CPT-4: J3301 06/24/2012 URINE CULTURE/ COLONY COUNT CPT-4: 44085 06/24/2012 THER/PROPH/DIAG INJ SC/IM CPT-4: 00830 05/20/2012 KETOROLAC TROMETHAMINE INJ CPT-4: J1885 05/20/2012 THER/PROPH/DIAG INJ SC/IM CPT-4: 78867 05/20/2012 PROMETHAZINE HCL INJECTION CPT-4: J2550 05/20/2012 DRAIN/INJECT JOINT/BURSA CPT-4: 89358 02/13/2012 METHYLPREDNISOLONE 40 MG INJ CPT-4: J1030 02/13/2012 TRIAMCINOLONE ACET INJ NOS CPT-4: J3301 02/13/2012 THER/PROPH/DIAG INJ SC/IM CPT-4: 11419 11/14/2011 METHYLPREDNISOLONE 40 MG INJ CPT-4: J1030 11/14/2011 TRIAMCINOLONE ACET INJ NOS CPT-4: J3301 11/14/2011 THER/PROPH/DIAG INJ SC/IM CPT-4: 54618 09/12/2011 KETOROLAC TROMETHAMINE INJ CPT-4: J1885 09/12/2011 THER/PROPH/DIAG INJ SC/IM CPT-4: 18874 08/09/2011 METHYLPREDNISOLONE 40 MG INJ CPT-4: J1030 08/09/2011 TRIAMCINOLONE ACET INJ NOS CPT-4: J3301 08/09/2011 URINE CULTURE/ COLONY COUNT CPT-4: 86924 07/03/2011 URINE CULTURE/ COLONY COUNT CPT-4: 40733 06/04/2011 THER/PROPH/DIAG INJ SC/IM CPT-4: 05370 05/03/2011 METHYLPREDNISOLONE 40 MG INJ CPT-4: J1030 05/03/2011 TRIAMCINOLONE ACET INJ NOS CPT-4: J3301 05/03/2011 URINALYSIS NONAUTO W/O SCOPE CPT-4: 63235 01/24/2011 URINE CULTURE/ COLONY COUNT CPT-4: 68981 01/24/2011 FLUZONE, 5ML (Medicare) CPT-4: Q2038 01/02/2011 ADMIN INFLUENZA VIRUS VAC CPT-4: G0008 01/02/2011 ASSAY, GLUCOSE, BLOOD QUANT CPT-4: 95387 12/07/2010 URINE CULTURE/ COLONY COUNT CPT-4: 77091 11/02/2010 THER/PROPH/DIAG INJ SC/IM CPT-4: 85606 10/18/2010 METHYLPREDNISOLONE 40 MG INJ CPT-4: J1030 10/18/2010 TRIAMCINOLONE ACET INJ NOS CPT-4: J3301 10/18/2010 TRIAMCINOLONE ACET INJ NOS CPT-4: J3301 05/11/2010 METHYLPREDNISOLONE 40 MG INJ CPT-4: J1030 05/11/2010 THER/PROPH/DIAG INJ SC/IM CPT-4: 73297 05/11/2010 TRIAMCINOLONE ACET INJ NOS CPT-4: J3301 02/09/2010 METHYLPREDNISOLONE 40 MG INJ CPT-4: J1030 02/09/2010 THER/PROPH/DIAG INJ SC/IM CPT-4: 42917 02/09/2010 SERVICE REQUIRED FOR PMD CPT-4: G0372 02/09/2010 FLU VACCINE 3 YRS & > IM UP 64 CPT-4: 53781 0 PNEUMOCOCCAL VACC 23 RANDALL IM CPT-4: 55658 12/07/2009 ADMIN INFLUENZA VIRUS VAC CPT-4: G0008 12/07/2009 ADMIN PNEUMOCOCCAL VACCINE CPT-4: G0009 12/07/2009 TRIAMCINOLONE ACET INJ NOS CPT-4: J3301 05/26/2009 THER/PROPH/DIAG INJ SC/IM CPT-4: 91410 05/26/2009 METHYLPREDNISOLONE 80 MG INJ CPT-4: J1040 [...] 1: 114/72 Code: 8480-6 BMI: 37.8 Code: 23214-7 Heart Rate 1: 72 bpm Height: 5'3" [...] 1: 106/68 Code: 8480-6 BMI: 35.7 Code: 49532-5 Heart Rate 1: 72 bpm Height: 5'4" Respiratory Rate: 20 bpm SpO2: 98% Tempera ture: 36.7 (C) / 98.0 (F) Weight: 208 lbs 04/16/2018 Blood Pressure 1: 132/82 Code: 8480-6 BMI: 37.9 Code: 73108-0 Heart Rate 1: 72 bpm Height: 5'4" Respiratory Rate: 20 bpm SpO2: 96% Tempera ture: 37.1 (C) / 98.8 (F) Weight: 221 lbs 04/01/2018 Blood Pressure 1: 150/90 Code: 8480-6 Heart Rate 1: 72 bpm Respiratory Rate: 22 bpm SpO2: 95% Temperature: 36.4 (C) / 97.6 (F) We ight: 216 lbs 03/06/2018 Blood Pressure 1: 126/78 Code: 8480-6 BMI: 37.4 Code: 60989-1 Heart Rate 1: 68 bpm Height: 5'4" [...] ight: 222 lbs 12/25/2017 BMI: 37.8 Code: 97181-5 Heart Rate 1: 76 bpm Height: 5 '4" Respiratory Rate: 20 bpm SpO2: 96% Temperature: 37.3 (C) / 99.2 (F) Weight: 220 lbs 12/17/2017 Blood Pressure 1: 132/78 Code: 8480-6 BMI: 37.2 Code: 38014-0 Heart Rate 1: 88 bpm Height: 5'4" Respiratory Rate: 20 bpm SpO2: 96% Tempera ture: 37.3 (C) / 99.2 (F) Weight: 217 lbs 10/30/2017 Blood Pressure 1: 114/68 Code: 8480-6 BMI: 36.4 Code: 44233-0 Heart Rate 1: 72 bpm Height: 5'4" Respiratory Rate: 22 bpm SpO2: 96% Tempera ture: 36.8 (C) / 98.2 (F) Weight: 212 lbs 10/23/2017 Blood Pressure 1: 124/78 Code: 8480-6 Heart Rate 1: 72 bpm Respiratory Rate: 24 bpm SpO2: 94% Temperature: 36.6 (C) / 97.9 (F) We ight: 212 lbs 09/17/2017 Blood Pressure 1: 128/82 Code: 8480-6 BMI: 37.4 Code: 27095-3 Heart Rate 1: 72 bpm Height: 5'4" Respiratory Rate: 20 bpm SpO2: 96% Tempera ture: 37.0 (C) / 98.6 (F) Weight: 218 lbs 07/19/2017 Blood Pressure 1: 136/84 Code: 8480-6 BMI: 36.6 Code: 57558-5 Heart Rate 1: 88 bpm Height: 5'4" Respiratory Rate: 20 bpm SpO2: 97% Tempera ture: 36.7 (C) / 98.0 (F) Weight: 213 lbs 05/29/2017 Blood Pressure 1: 136/82 Code: 8480-6 BMI: 36.7 Code: 97169-5 Heart Rate 1: 72 bpm Height: 5'4" Respiratory Rate: 20 bpm SpO2: 97% Tempera ture: 36.9 (C) / 98.4 (F) Weight: 214 lbs 05/07/2017 Blood Pressure 1: 122/80 Code: 8480-6 BMI: 37.1 Code: 78545-9 Heart Rate 1: 80 bpm Height: 5'4" Respiratory Rate: 24 bpm SpO2: 96% Tempera ture: 36.1 (C) / 97.0 (F) Weight: 216 lbs 03/18/2017 BMI: 36.7 Code: 47920-0 Heart Rate 1: 80 bpm Height: 5 '4" Respiratory Rate: 22 bpm SpO2: 95% Temperature: 36.9 (C) / 98.4 (F) Weight: 214 lbs 02/27/2017 Blood Pressure 1: 146/94 Code: 8480-6 BMI: 36.6 Code: 55289-0 Heart Rate 1: 76 bpm Height: 5'4" Respiratory Rate: 22 bpm SpO2: 97% Tempera ture: 36.6 (C) / 97.9 (F) Weight: 213 lbs 02/22/2017 Blood Pressure 1: 126/90 Code: 8480-6 BMI: 36.4 Code: 81707-0 Heart Rate 1: 84 bpm Height: 5'4" Respiratory Rate: 22 bpm SpO2: 95% Tempera ture: 36.9 (C) / 98.4 (F) Weight: 212 lbs 01/23/2017 Blood Pressure 1: 146/82 Code: 8480-6 BMI: 37.6 Code: 66940-6 Heart Rate 1: 96 bpm Height: 5'4" Respiratory Rate: 20 bpm SpO2: 96% Tempera ture: 36.9 (C) / 98.4 (F) Weight: 219 lbs 12/20/2016 Blood Pressure 1: 126/70 Code: 8480-6 BMI: 37.2 Code: 13045-3 Heart Rate 1: 76 bpm Height: 5'4" Respiratory Rate: 22 bpm SpO2: 95% Tempera ture: 36.6 (C) / 97.8 (F) Weight: 217 lbs 10/08/2016 Blood Pressure 1: 128/82 Code: 8480-6 BMI: 36.9 Code: 62424-5 Heart Rate 1: 76 bpm Height: 5'4" Respiratory Rate: 20 bpm SpO2: 95% Tempera ture: 37.0 (C) / 98.6 (F) Weight: 215 lbs 09/19/2016 Blood Pressure 1: 144/78 Code: 8480-6 BMI: 37.8 Code: 31243-8 Heart Rate 1: 76 bpm Height: 5'4" Respiratory Rate: 22 bpm SpO2: 95% Tempera ture: 37.0 (C) / 98.6 (F) Weight: 220 lbs 08/20/2016 Blood Pressure 1: 140/86 Code: 8480-6 BMI: 37.4 Code: 23879-2 Heart Rate 1: 80 bpm Height: 5'4" Respiratory Rate: 20 bpm SpO2: 95% Tempera ture: 36.9 (C) / 98.4 (F) Weight: 218 lbs 06/19/2016 Blood Pressure 1: 124/78 Code: 8480-6 BMI: 37.8 Code: 21008-1 Heart Rate 1: 74 bpm Height: 5'4" Respiratory Rate: 24 bpm SpO2: 96% Tempera ture: 36.9 (C) / 98.4 (F) Weight: 220 lbs 06/04/2016 Blood Pressure 1: 124/78 Code: 8480-6 BMI: 38.8 Code: 45065-8 Heart Rate 1: 72 bpm Height: 5'4" Respiratory Rate: 24 bpm SpO2: 95% Tempera ture: 36.8 (C) / 98.2 (F) Weight: 226 lbs 05/02/2016 Blood Pressure 1: 136/90 Code: 8480-6 BMI: 37.6 Code: 39858-9 Heart Rate 1: 72 bpm Height: 5'4" Respiratory Rate: 24 bpm SpO2: 96% Tempera ture: 36.9 (C) / 98.4 (F) Weight: 219 lbs 04/03/2016 Blood Pressure 1: 126/78 Code: 8480-6 BMI: 38.1 Code: 19604-1 Heart Rate 1: 72 bpm Height: 5'4" Respiratory Rate: 22 bpm SpO2: 94% Tempera ture: 36.9 (C) / 98.4 (F) Weight: 222 lbs 02/29/2016 Blood Pressure 1: 132/78 Code: 8480-6 Heart Rate 1: 78 bpm Height: Respiratory Rate: 24 bpm SpO2: 95% Temperature: 36.4 (C) / 97.6 (F) We ight: 02/02/2016 Blood Pressure 1: 124/78 Code: 8480-6 BMI: 37.6 Code: 94110-6 Heart Rate 1: 76 bpm Height: 5'4" Respiratory Rate: 20 bpm SpO2: 95% Tempera ture: 36.8 (C) / 98.2 (F) Weight: 219 lbs 01/05/2016 Blood Pressure 1: 126/70 Code: 8480-6 BMI: 37.1 Code: 72833-8 Heart Rate 1: 76 bpm Height: 5'4" Respiratory Rate: 20 bpm Temperature: 36 .6 (C) / 97.8 (F) Weight: 216 lbs 12/05/2015 Blood Pressure 1: 126/72 Code: 8480-6 BMI: 36.9 Code: 38490-3 Heart Rate 1: 92 bpm Height: 5'4" Respiratory Rate: 20 bpm Temperature: 36 .7 (C) / 98.1 (F) Weight: 215 lbs 10/26/2015 Blood Pressure 1: 142/80 Code: 8480-6 BMI: 36.4 Code: 87380-7 Heart Rate 1: 82 bpm Height: 5'4" Respiratory Rate: 24 bpm SpO2: 92% Tempera ture: 35.9 (C) / 96.7 (F) Weight: 212 lbs 10/05/2015 Blood Pressure 1: 136/82 Code: 8480-6 Heart Rate 1: 80 bpm Respiratory Rate: 18 bpm SpO2: 98% Temperature: 35.7 (C) / 96.3 (F) We ight: 214 lbs 09/15/2015 Blood Pressure 1: 116/80 Code: 8480-6 BMI: 34.6 Code: 88150-2 Heart Rate 1: 76 bpm Height: 5'6" Respiratory Rate: 20 bpm Temperature: 36 .6 (C) / 97.9 (F) Weight: 211 lbs 08/24/2015 Blood Pressure 1: 124/80 Code: 8480-6 BMI: 34.1 Code: 49336-3 Heart Rate 1: 68 bpm Height: 5'6" Respiratory Rate: 20 bpm Temperature: 36 .8 (C) / 98.3 (F) Weight: 208 lbs 07/05/2015 Blood Pressure 1: 114/78 Code: 8480-6 BMI: 33.9 Code: 56403-7 Heart Rate 1: 80 bpm Height: 5'6" Respiratory Rate: 20 bpm Temperature: 36 .6 (C) / 97.9 (F) Weight: 207 lbs 06/06/2015 Blood Pressure 1: 122/78 Code: 8480-6 BMI: 34.1 Code: 14052-5 Heart Rate 1: 76 bpm Height: 5'6" Respiratory Rate: 24 bpm SpO2: 96% Tempera ture: 36.4 (C) / 97.6 (F) Weight: 208 lbs 05/23/2015 Blood Pressure 1: 124/78 Code: 8480-6 Heart Rate 1: 76 bpm Respiratory Rate: 24 bpm SpO2: 93% Temperature: 36.8 (C) / 98.2 (F) We ight: 212 lbs 05/05/2015 Blood Pressure 1: 136/80 Code: 8480-6 BMI: 35.4 Code: 95979-1 Heart Rate 1: 76 bpm Height: 5'6" Respiratory Rate: 28 bpm Temperature: 37 .0 (C) / 98.6 (F) Weight: 216 lbs 03/30/2015 Blood Pressure 1: 132/86 Code: 8480-6 BMI: 35.2 Code: 52347-3 Heart Rate 1: 84 bpm Height: 5'6" Respiratory Rate: 24 bpm Temperature: 36 .7 (C) / 98.0 (F) Weight: 215 lbs 02/03/2015 Blood Pressure 1: 122/74 Code: 8480-6 BMI: 35.7 Code: 81450-4 Heart Rate 1: 84 bpm Height: 5'6" Respiratory Rate: 20 bpm Temperature: 36 .9 (C) / 98.5 (F) Weight: 218 lbs 12/29/2014 Blood Pressure 1: 132/80 Code: 8480-6 BMI: 35.1 Code: 67297-1 Heart Rate 1: 80 bpm Height: 5'6" Respiratory Rate: 20 bpm Temperature: 36 .6 (C) / 97.8 (F) Weight: 214 lbs 09/02/2014 Blood Pressure 1: 128/92 Code: 8480-6 BMI: 34.7 Code: 14738-3 Heart Rate 1: 84 bpm Height: 5'6" Respiratory Rate: 26 bpm Temperature: 36 .8 (C) / 98.2 (F) Weight: 212 lbs 08/25/2014 Blood Pressure 1: 124/80 Code: 8480-6 BMI: 34.7 Code: 50639-2 Heart Rate 1: 78 bpm Height: 5'6" Respiratory Rate: 22 bpm SpO2: 97% Tempera ture: 36.6 (C) / 97.8 (F) Weight: 212 lbs 04/01/2014 Blood Pressure 1: 142/84 Code: 8480-6 BMI: 34.4 Code: 69331-0 Heart Rate 1: 74 bpm Height: 5'5" Respiratory Rate: 20 bpm Temperature: 36 .4 (C) / 97.6 (F) Weight: 207 lbs 03/16/2014 Blood Pressure 1: 142/90 Code: 8480-6 BMI: 34.6 Code: 59623-1 Heart Rate 1: 76 bpm Height: 5'5" Respiratory Rate: 24 bpm Temperature: 36 .5 (C) / 97.7 (F) Weight: 208 lbs 03/09/2014 Blood Pressure 1: 116/70 Code: 8480-6 BMI: 35.3 Code: 98662-1 Heart Rate 1: 72 bpm Height: 5'5" [...] 1: 128/86 Code: 8480-6 BMI: 34.3 Code: 03706-5 Heart Rate 1: 84 bpm Height: 5'5" Respiratory Rate: 20 bpm Temperature: 36 .7 (C) / 98.0 (F) Weight: 206 lbs 12/23/2013 Blood Pressure 1: 122/70 Code: 8480-6 BMI: 34.3 Code: 52027-1 Heart Rate 1: 68 bpm Height: 5'5" Respiratory Rate: 20 bpm Temperature: 36 .8 (C) / 98.2 (F) Weight: 206 lbs 10/05/2013 Blood Pressure 1: 118/76 Code: 8480-6 BMI: 34.1 Code: 96262-0 Heart Rate 1: 68 bpm Height: 5'5" Respiratory Rate: 20 bpm SpO2: 98% Tempera ture: 36.6 (C) / 97.9 (F) Weight: 205 lbs 08/04/2013 Blood Pressure 1: 126/82 Code: 8480-6 BMI: 33.3 Code: 97428-4 Heart Rate 1: 76 bpm Height: 5'5" Respiratory Rate: 20 bpm Temperature: 36 .8 (C) / 98.2 (F) Weight: 200 lbs 07/03/2013 Blood Pressure 1: 124/82 Code: 8480-6 BMI: 33.3 Code: 32486-4 Heart Rate 1: 72 bpm Height: 5'5" Respiratory Rate: 22 bpm Temperature: 36 .1 (C) / 97.0 (F) Weight: 200 lbs 05/27/2013 Blood Pressure 1: 126/82 Code: 8480-6 Heart Rate 1: 74 bpm Respiratory Rate: 20 bpm Temperature: 36.0 (C) / 96.8 (F) Weight: 199 lbs 04/06/2013 Blood Pressure 1: 118/80 Code: 8480-6 BMI: 35.2 Code: 50329-6 Heart Rate 1: 80 bpm Height: 5'4" Respiratory Rate: 20 bpm Temperature: 37 .4 (C) / 99.3 (F) Weight: 205 lbs 11/10/2012 Blood Pressure 1: 128/82 Code: 8480-6 Heart Rate 1: 84 bpm Respiratory Rate: 20 bpm Temperature: 36.7 (C) / 98.0 (F) Weight: 199 lbs 09/02/2012 Blood Pressure 1: 116/82 Code: 8480-6 BMI: 34.2 Code: 14239-0 Heart Rate 1: 88 bpm Height: 5'4" Respiratory Rate: 22 bpm Temperature: 36 .6 (C) / 97.8 (F) Weight: 199 lbs 08/04/2012 Blood Pressure 1: 128/74 Code: 8480-6 BMI: 34.0 Code: 07428-1 Heart Rate 1: 92 bpm Height: 5'4" Respiratory Rate: 20 bpm Temperature: 36 .4 (C) / 97.5 (F) Weight: 198 lbs 07/21/2012 Blood Pressure 1: 124/86 Code: 8480-6 Heart Rate 1: 116 bpm Respiratory Rate: 24 bpm Temperature: 36.8 (C) / 98.2 (F) 07/02/2012 Blood Pressure 1: 116/88 Code: 8480-6 BMI: 33.6 Code: 58584-3 Heart Rate 1: 76 bpm Height: 5'4" Respiratory Rate: 20 bpm Temperature: 36 .8 (C) / 98.3 (F) Weight: 196 lbs 06/24/2012 Blood Pressure 1: 124/80 Code: 8480-6 BMI: 34.3 Code: 22185-9 Heart Rate 1: 72 bpm Height: 5'4" SpO2: 96% Temperature: 36.3 (C) / 97.3 (F) Weight: 200 lbs 05/20/2012 Blood Pressure 1: 116/88 Code: 8480-6 BMI: 33.8 Code: 28564-6 Heart Rate 1: 80 bpm Height: 5'4" Respiratory Rate: 22 bpm Temperature: 36 .9 (C) / 98.4 (F) Weight: 197 lbs 05/08/2012 Blood Pressure 1: 128/86 Code: 8480-6 BMI: 33.8 Code: 65594-1 Heart Rate 1: 76 bpm Height: 5'4" Respiratory Rate: 26 bpm SpO2: 95% Tempera ture: 36.1 (C) / 97.0 (F) Weight: 197 lbs 04/22/2012 Blood Pressure 1: 106/64 Code: 8480-6 BMI: 33.8 Code: 70617-5 Heart Rate 1: 70 bpm Height: 5'4" Temperature: 36.1 (C) / 97.0 (F) Weight: 197 lbs 02/13/2012 Blood Pressure 1: 126/82 Code: 8480-6 BMI: 34.7 Code: 36859-5 Heart Rate 1: 64 bpm Height: 5'4" Respiratory Rate: 20 bpm Temperature: 36 .6 (C) / 97.8 (F) Weight: 202 lbs 01/28/2012 Blood Pressure 1: 116/80 Code: 8480-6 BMI: 34.7 Code: 03900-2 Heart Rate 1: 76 bpm Height: 5'4" Respiratory Rate: 20 bpm Temperature: 36 .8 (C) / 98.3 (F) Weight: 202 lbs 12/26/2011 Blood Pressure 1: 132/82 Code: 8480-6 BMI: 36.0 Code: 53602-1 Heart Rate 1: 68 bpm Height: 5'4" Respiratory Rate: 22 bpm Temperature: 36 .7 (C) / 98.0 (F) Weight: 210 lbs 11/14/2011 Blood Pressure 1: 124/80 Code: 8480-6 BMI: 36.4 Code: 67192-0 Heart Rate 1: 76 bpm Height: 5'4" Respiratory Rate: 20 bpm Temperature: 36 .8 (C) / 98.2 (F) Weight: 212 lbs 09/12/2011 Blood Pressure 1: 108/74 Code: 8480-6 BMI: 37.1 Code: 82023-5 Heart Rate 1: 72 bpm Height: 5'4" Respiratory Rate: 20 bpm Temperature: 37 .0 (C) / 98.6 (F) Weight: 216 lbs 08/15/2011 Blood Pressure 1: 122/80 Code: 8480-6 BMI: 36.9 Code: 70581-6 Heart Rate 1: 76 bpm Height: 5'4" Respiratory Rate: 20 bpm Temperature: 36 .2 (C) / 97.1 (F) Weight: 215 lbs 08/09/2011 Blood Pressure 1: 112/78 Code: 8480-6 BMI: 36.9 Code: 32387-6 Heart Rate 1: 68 bpm Height: 5'4" Respiratory Rate: 20 bpm Temperature: 36 .7 (C) / 98.0 (F) Weight: 215 lbs 07/03/2011 Blood Pressure 1: 140/94 Code: 8480-6 BMI: 36.2 Code: 25499-5 Heart Rate 1: 68 bpm Height: 5'4" Temperature: 36.0 (C) / 96.8 (F) Weight: 211 lbs 06/04/2011 Blood Pressure 1: 124/70 Code: 8480-6 BMI: 36.7 Code: 23544-4 Heart Rate 1: 68 bpm Height: 5'4" Respiratory Rate: 20 bpm Temperature: 36 .6 (C) / 97.9 (F) Weight: 214 lbs 05/03/2011 Blood Pressure 1: 130/76 Code: 8480-6 BMI: 36.4 Code: 18240-7 Heart Rate 1: 74 bpm Height: 5'5" Temperature: 36.2 (C) / 97.2 (F) Weight: 219 lbs 04/05/2011 Blood Pressure 1: 124/86 Code: 8480-6 BMI: 35.9 Code: 54176-1 Heart Rate 1: 76 bpm Height: 5'6" Respiratory Rate: 22 bpm Temperature: 36 .3 (C) / 97.3 (F) Weight: 219 lbs 03/08/2011 Blood Pressure 1: 112/78 Code: 8480-6 BMI: 35.1 Code: 88681-7 Heart Rate 1: 80 bpm Height: 5'6" Respiratory Rate: 26 bpm Temperature: 36 .9 (C) / 98.4 (F) Weight: 214 lbs 01/24/2011 Blood Pressure 1: 110/82 Code: 8480-6 BMI: 35.6 Code: 37242-6 Heart Rate 1: 80 bpm Height: 5'6" Temperature: 36.1 (C) / 97.0 (F) Weight: 217 lbs 01/02/2011 Blood Pressure 1: 106/72 Code: 8480-6 BMI: 35.6 Code: 24635-7 Heart Rate 1: 76 bpm Height: 5'6" [...] 1: 120/74 Code: 8480-6 BMI: 35.9 Code: 92345-8 Heart Rate 1: 72 bpm Height: 5'5" Temperature: 36.3 (C) / 97.4 (F) Weight: 216 lbs 09/19/2010 Blood Pressure 1: 124/80 Code: 8480-6 BMI: 35.4 Code: 62256-6 Heart Rate 1: 76 bpm Height: 5'5" [...] 1: 122/78 Code: 8480-6 BMI: 37.4 Code: 96321-0 Heart Rate 1: 84 bpm Height: 5'5" Weight: 225 lbs Functional Status No Functional Status data Reason For Visit Reason For Visit Effective Dates Notes fever 05/26/2019 dyspnea 05/13/[address] [...] 10/30/2017 follow up 10/23/2017 Hospital fwup from [facility] Annual Checkup 09/17/2017 [...] follow up 10/26/2015 ER visit from at [facility] for COPD Exacerbation follow up 10/05/2015 ER Visit gait abnormality 09/15/2015 Patient requesting p miriam paperwork to be filled out disturbances of thinking 08/24/2015 follow up 07/05/2015 4wk fwup follow up 06/06/2015 Hospital fwup cough 05/23/2015 follow up 05/05/2015 dyspnea 03/30/2015 [facility] needs new orde r for O2 abdominal pain 02/03/2015 cyst 12/29/2014 vs abscess follow up 09/02/2014 Hospital fwup headache 08/25/2014 facial drooping follow up 04/01/2014 [...] up 10/18/[address] Medrano last w [facility], having increased allergy symptoms. Would like steroid [...] 1 month f/u follow up 12/07/2009 from [facility], done with PT--finished about 2wks ago follow up 11/08/2009 2wk fwup follow up 10/24/2009 hosp fwup ~generic 07/25/2009 bilateral earlobe re dness/swelling, pain radiating into neck, refill Demerol ~generic 05/26/2009 FALLING A LOT, SAVEL LA NOT HELPING FIBROMYALGIA PAIN, LT HAND LACERATION-FELL INTO NAIL 05/25/09 Encounters Encounter Performer Location Codes Date () OFFICE/OUTPATIENT VISIT EST Diagnosis: Acute febrile illness[ICD10: R50.9] Diagnosis: Colitis[ICD10: K52.9] Belia [facility] CPT-4: 58800 05/26/2019 ([id number]) OFFICE/OUTPATIENT VISIT EST Diagnosis: Chronic obstructive pulmonary disease, unspecified[ICD10: J44.9] Diagnosis: Pulmonary fibrosis[ICD10: J84.10] Diagnosis: Intermittent stridor[ICD10: R06.1] Diagnosis: Muscle weakness[ICD10: M62.81] Belia REID DO [facility] CPT-4: 82183 05/13/2019 ([id number]) OFFICE/OUTPATIENT VISIT EST Diagnosis: Stridor[ICD10: R06.1] Diagnosis: COUGH[ICD10: R05] Belia REID DO [facility] CPT-4: 10005 05/06/2019 ([id number]) OFFICE/OUTPATIENT VISIT EST Diagnosis: Stridor[ICD10: R06.1] Diagnosis: Muscle, jerky movements (uncontrolled)[ICD10: G25.5] Belia REID DO [facility] CPT-4: 01808 04/29/2019 ([id number]) OFFICE/OUTPATIENT VISIT EST Diagnosis: Upper respiratory infection[ICD10: J06.9] Diagnosis: Flank pain[ICD10: R10.9] Diagnosis: Weight gain[ICD10: R63.5] Pattie AMBRIZ [facility] CPT-4: 99482 04/16/2019 ([id number]) OFFICE/OUTPATIENT VISIT EST Diagnosis: Generalized pruritus[ICD10: L29.9] Belia BASS MARIE Yuridia REID [facility] CPT-4: 99363 04/08/2019 ([id number]) OFFICE/OUTPATIENT VISIT EST Diagnosis: Acute bursitis of left shoulder[ICD10: M75.52] Diagnosis: Cervicalgia[ICD10: M54.2] Diagnosis: Chest wall pain[ICD10: R07.89] Belia REID [facility] CPT-4: 34907 01/22/2019 ([id number]) OFFICE/OUTPATIENT VISIT EST Diagnosis: Abdominal pain[ICD10: R10.9] Diagnosis: Pyelonephritis[ICD10: N12] Pattie DOMINGUEZ [facility] CPT-4: 94662 01/07/2019 ([id number]) OFFICE/OUTPATIENT VISIT EST Diagnosis: Low back pain[ICD10: M54.5] Diagnosis: Left lumbar radiculopathy[ICD10: M54.16] Diagnosis: Left flank pain[ICD10: R10.9] Diagnosis: Left lower quadrant pain[ICD10: R10.32] Diagnosis: FLU VACCINE[ICD10: Z23] Belia FREDERICK [facility] CPT-4: 83859 12/24/2018 ([id number]) OFFICE/OUTPATIENT VISIT EST Diagnosis: Migraine, unspecified, not intractable, without status migrainosus[ICD10: G43.909] Diagnosis: Fibromyalgia[ICD10: M79.7] Belia DOMINGUEZ DO [facility] CPT-4: 65919 11/20/2018 ([id number]) OFFICE/OUTPATIENT VISIT EST Diagnosis: Migraine, unspecified, intractable, without status migrainosus[ICD10: G43.919] Diagnosis: Acute sinusitis, unspecified[ICD10: J01.90] Pattie REID DO [facility] CPT-4: 84953 11/04/2018 ([id number]) OFFICE/OUTPATIENT VISIT EST Diagnosis: Pain in left wrist[ICD10: M25.532] Diagnosis: Other dorsalgia[ICD10: M54.89] Pattie REID DO [facility] CPT-4: 82989 09/08/2018 ([id number]) OFFICE/OUTPATIENT VISIT EST Diagnosis: Acute stress reaction[ICD10: F43.0] Diagnosis: Pruritus, unspecified[ICD10: L29.9] 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, 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] Belia REID DO [facility] CPT-4: 93398 08/20/2018 ([id number]) OFFICE/OUTPATIENT VISIT EST Diagnosis: Hypotension due to drugs[ICD10: I95.2] Diagnosis: Paroxysmal atrial fibrillation[ICD10: I48.0] Diagnosis: Localized edema[ICD10: R60.0] Belia REID DO [facility] CPT-4: 52040 06/19/2018 ([id number]) OFFICE/OUTPATIENT VISIT EST Diagnosis: Generalized hyperhidrosis[ICD10: R61] Diagnosis: Essential (primary) hypertension[ICD10: I10] Diagnosis: Supraventricular tachycardia[ICD10: I47.1] Belia REID DO [facility] CPT-4: 17226 06/09/2018 ([id number]) OFFICE/OUTPATIENT VISIT EST Diagnosis: Stridor[ICD10: R06.1] Diagnosis: Dependence on supplemental oxygen[ICD10: Z99.81] Diagnosis: Weakness[ICD10: R53.1] Diagnosis: Supraventricular tachycardia[ICD10: I47.1] Belia REID [facility] CPT-4: 74222 05/21/2018 ([id number]) OFFICE/OUTPATIENT VISIT EST Diagnosis: Cervical disc disorder with radiculopathy, unspecified cervical region[ICD10: M50.10] [facility]: 77845 04/16/2018 ([id number]) OFFICE/OUTPATIENT VISIT EST Diagnosis: Migraine, unspecified, intractable, without status migrainosus[ICD10: G43.919] Diagnosis: Fibromyalgia[ICD10: M79.7] Pattie DOMINGUEZ [facility] CPT-4: 83700 04/01/2018 ([id number]) NURSE/OUTPATIENT VISIT EST Diagnosis: Hematuria, unspecified[ICD10: R31.9] Diagnosis: Dysuria[ICD10: R30.0] [facility]: 15749 03/17/2018 ([id number]) OFFICE/OUTPATIENT VISIT EST Diagnosis: Erythema intertrigo[ICD10: L30.4] Diagnosis: Chronic obstructive pulmonary disease with (acute) exacerbation[ICD10: J44.1] Diagnosis: Type 2 diabetes mellitus with hyperglycemia[ICD10: E11.65] [facility]PT[facility]: 56847 03/06/2018 ([id number]) OFFICE/OUTPATIENT VISIT EST Diagnosis: Cervicalgia[ICD10: M54.2] Pattie AMBRIZ [facility] CPT-4: 48760 02/05/2018 ([id number]) OFFICE/OUTPATIENT VISIT EST Diagnosis: Candidiasis of skin and nail[ICD10: B37.2] Diagnosis: Cervicalgia[ICD10: M54.2] Pattie AMBRIZ [facility] CPT-4: 13105 01/20/2018 ([id number]) OFFICE/OUTPATIENT VISIT EST Diagnosis: Pain in thoracic spine[ICD10: M54.6] Diagnosis: Radiculopathy, thoracic region[ICD10: M54.14] Belia REID DO [facility] CPT-4: 24550 12/25/2017 ([id number]) OFFICE/OUTPATIENT VISIT EST Diagnosis: Pain in thoracic spine[ICD10: M54.6] Diagnosis: Other muscle spasm[ICD10: M62.838] Diagnosis: FLU VACCINE[ICD10: Z23] Diagnosis: PNEUMOCOCCAL VACCINE[ICD10: Z23] Belia REID DO [facility] CPT-4: 97556 12/17/2017 ([id number]) OFFICE/OUTPATIENT VISIT EST Diagnosis: Chronic obstructive pulmonary disease with (acute) exacerbation[ICD10: J44.1] Belia REID DO [facility] CPT- 4: 23467 10/30/2017 ([id number]) OFFICE/OUTPATIENT VISIT EST Diagnosis: Chronic obstructive pulmonary disease with acute lower respiratory infection[ICD10: J44.0] Diagnosis: Mild intermittent asthma with (acute) exacerbation[ICD10: J45.21] Belia REID [employer] [facility] CPT-4: 48661 10/23/2017 ([id number]) NURSE/OUTPATIENT VISIT EST Diagnosis: Migraine, unspecified, not intractable, without status migrainosus[ICD10: G43.909] Belia REID DO [facility] CPT - 4: 32788 08/26/2017 ([id number]) OFFICE/OUTPATIENT VISIT EST Diagnosis: Urinary tract infection, site not specified[ICD10: N39.0] Diagnosis: Encounter for screening for osteoporosis[ICD10: Z13.820] Diagnosis: Encounter for screening mammogram for malignant neoplasm of breast[ICD10: Z12.31] Diagnosis: Acute bronchitis, unspecified[ICD10: J20.9] Pattie REID [employer] [facility] CPT-4: 65591 07/19/2017 ([id number]) OFFICE/OUTPATIENT VISIT EST Diagnosis: Rash and other nonspecific skin eruption[ICD10: R21] Pattie REID DO [facility] CPT-4: 00165 05/29/2017 ([id number]) OFFICE/OUTPATIENT VISIT EST Diagnosis: Diarrhea, unspecified[ICD10: R19.7] Diagnosis: Tinea corporis[ICD10: B35.4] Diagnosis: Tinea cruris[ICD10: B35.6] Diagnosis: Migraine, unspecified, not intractable, without status migrainosus[ICD10: G43.909] Belia REID [employer] [facility] CPT - 4: 61050 05/07/2017 ([id number]) OFFICE/OUTPATIENT VISIT EST Diagnosis: Stridor[ICD10: R06.1] Diagnosis: Chronic obstructive pulmonary disease with (acute) exacerbation[ICD10: J44.1] Belia REID [facility] CPT- 4: 91156 03/18/2017 ([id number]) OFFICE/OUTPATIENT VISIT EST Diagnosis: Type 2 diabetes mellitus with hyperglycemia[ICD10: E11.65] Belia SMITH [employer] [facility] CPT-4: 12256 02/27/2017 OFFICE/OUTPATIENT VISIT EST Diagnosis: Type 2 diabetes mellitus with hyperglycemia[ICD10: E11.65] Pattie SMITH [employer] [facility] CPT-4: 63769 02/22/2017 ([id number]) OFFICE/OUTPATIENT VISIT EST Diagnosis: Urinary tract infection, site not specified[ICD10: N39.0] Diagnosis: Pneumonia, unspecified organism[ICD10: J18.9] Diagnosis: Type 2 diabetes mellitus with hyperglycemia[ICD10: E11.65] Belia REID [facility] CPT-4: 41625 01/23/2017 ([id number]) OFFICE/OUTPATIENT VISIT EST Diagnosis: Type 2 diabetes mellitus with hyperglycemia[ICD10: E11.65] Diagnosis: Localized edema[ICD10: R60.0] Diagnosis: PNEUMOCOCCAL VACCINE[ICD10: Z23] Diagnosis: FLU VACCINE[ICD10: Z23] Belia SMITH [employer] [facility] CPT-4: 35607 12/20/2016 OFFICE/OUTPATIENT VISIT EST Diagnosis: Pain in thoracic spine[ICD10: M54.6] Diagnosis: Low back pain[ICD10: M54.5] Diagnosis: Cervicalgia[ICD10: M54.2] Diagnosis: Cough[ICD10: R05] Celeste FarooqKipAbdiel REID DO [facility] CPT-4: 88665 10/08/2016 ([id number]) OFFICE/OUTPATIENT VISIT EST Diagnosis: Primary insomnia[ICD10: F51.01] Diagnosis: Migraine, unspecified, not intractable, without status migrainosus[ICD10: G43.909] Diagnosis: Type 2 diabetes mellitus with hyperglycemia[ICD10: E11.65] Belia REID DO [facility] CPT-4: 86530 09/19/2016 ([id number]) OFFICE/OUTPATIENT VISIT EST Diagnosis: Migraine, unspecified, not intractable, without status migrainosus[ICD10: G43.909] Diagnosis: Generalized abdominal pain[ICD10: R10.84] Diagnosis: Cough[ICD10: R05] Belia REID DO [facility] CPT-4: 70194 08/20/2016 ([id number]) OFFICE/OUTPATIENT VISIT EST Diagnosis: Chronic obstructive pulmonary disease, unspecified[ICD10: J44.9] Diagnosis: Stridor[ICD10: R06.1] Belia REID DO [facility] CPT-4: 35053 06/19/2016 ([id number]) OFFICE/OUTPATIENT VISIT EST Diagnosis: Chronic obstructive pulmonary disease, unspecified[ICD10: J44.9] Diagnosis: Personal history of urinary (tract) infections[ICD10: Z87.440] Belia REID DO [facility] CPT-4: 88729 06/04/2016 ([id number]) OFFICE/OUTPATIENT VISIT EST Diagnosis: Stridor[ICD10: R06.1] Diagnosis: Chronic obstructive pulmonary disease with acute lower respiratory infection[ICD10: J44.0] Diagnosis: Other specified diseases of intestine[ICD10: K63.89] Diagnosis: Cystitis, unspecified without hematuria[ICD10: N30.90] Belia REID DO [facility] CPT-4: 54644 05/02/2016 ([id number]) OFFICE/OUTPATIENT VISIT EST Diagnosis: Fibromyalgia[ICD10: M79.7] Diagnosis: Urinary tract infection, site not specified[ICD10: N39.0] Belia REID [employer] [facility] CPT-4: 42961 04/03/2016 ([id number]) OFFICE/OUTPATIENT VISIT EST Diagnosis: Unspecified asthma, uncomplicated[ICD10: J45.909] Diagnosis: Cough[ICD10: R05] Lidia REID [employer] [facility] T-4: 06109 02/29/2016 ([id number]) OFFICE/OUTPATIENT VISIT EST Diagnosis: Migraine, unspecified, intractable, without status migrainosus[ICD10: G43.919] Diagnosis: Urinary tract infection, site not specified[ICD10: N39.0] Belia REID [employer] [facility] CPT-4: 07949 02/02/2016 ([id number]) OFFICE/OUTPATIENT VISIT EST Diagnosis: Urinary tract infection, site not specified[ICD10: N39.0] Diagnosis: Unspecified abdominal pain[ICD10: R10.9] Diagnosis: Pain in thoracic spine[ICD10: M54.6] Diagnosis: Type 2 diabetes mellitus with diabetic neuropathic arthropathy[ICD10: E11.610] Belia REID [employer] [facility] CPT-4: 44793 12/05/2015 ([id number]) OFFICE/OUTPATIENT VISIT EST Diagnosis: Chronic obstructive pulmonary disease with (acute) exacerbation[ICD10: J44.1] Diagnosis: Migraine, unspecified, not intractable, without status migrainosus[ICD10: G43.909] Lidia REID [employer] [facility] CPT -4: 28775 10/26/2015 ([id number]) OFFICE/OUTPATIENT VISIT EST Diagnosis: Hematuria, unspecified[ICD10: R31.9] Diagnosis: Urinary tract infection, site not specified[ICD10: N39.0] Lidia REID [employer] [facility] CPT-4: 54211 10/05/2015 OFFICE/OUTPATIENT VISIT EST Diagnosis: Chronic obstructive pulmonary disease, unspecified[ICD10: J44.9] Diagnosis: Muscle weakness (generalized)[ICD10: M62.81] Diagnosis: Polyneuropathy, unspecified[ICD10: G62.9] Diagnosis: Other intervertebral disc degeneration, 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] Diagnosis: Fibromyalgia[ICD10: M79.7] Belia DOMINGUEZ DO [facility] CPT-4: 98781 09/15/2015 ([id number]) OFFICE/OUTPATIENT VISIT EST Diagnosis: Disorientation, unspecified[ICD10: R41.0] Diagnosis: Headache[ICD10: R51] Diagnosis: Paresthesia of skin[ICD10: R20.2] Lidia REID DO [facility] CPT-4: 38979 08/24/2015 ([id number]) OFFICE/OUTPATIENT VISIT EST Diagnosis: Type 2 diabetes mellitus with hyperglycemia[ICD10: E11.65] Diagnosis: Chronic obstructive pulmonary disease with acute lower respiratory infection[ICD10: J44.0] Belia REID DO [facility] CPT-4: 81850 07/05/2015 ([id number]) OFFICE/OUTPATIENT VISIT EST Diagnosis: Mild intermittent asthma with (acute) exacerbation[ICD10: J45.21] Diagnosis: Chronic obstructive pulmonary disease, unspecified[ICD10: J44.9] Belia REID DO [facility] CPT-4: 64187 06/06/2015 ([id number]) OFFICE/OUTPATIENT VISIT EST Diagnosis: Chronic obstructive pulmonary disease with (acute) exacerbation[ICD10: J44.1] Lidia REID DO [facility] CPT- 4: 33206 05/23/2015 ([id number]) OFFICE/OUTPATIENT VISIT EST Diagnosis: Type 2 diabetes mellitus with hyperglycemia[ICD10: E11.65] Diagnosis: Functional dyspepsia[ICD10: K30] Belia REID DO [facility] CPT-4: 24980 05/05/2015 ([id number]) OFFICE/OUTPATIENT VISIT EST Diagnosis: Type 2 diabetes mellitus with hyperglycemia[ICD10: E11.65] Diagnosis: Glycosuria[ICD10: R81] Diagnosis: Urinary tract infection, site not specified[ICD10: N39.0] Belia REID DO [facility] CPT-4: 96129 03/30/2015 ([id number]) OFFICE/OUTPATIENT VISIT EST Diagnosis: Generalized abdominal pain[ICD10: R10.84] Diagnosis: Diarrhea, unspecified[ICD10: R19.7] Diagnosis: Urinary tract infection, site not specified[ICD10: N39.0] Diagnosis: Gastro-esophageal reflux disease without esophagitis[ICD10: K21.9] [facility] 35798 02/03/2015 ([id number]) OFFICE/OUTPATIENT VISIT EST Diagnosis: Other specified noninflammatory disorders of vagina[ICD10: N89.8] Diagnosis: Follicular disorder, unspecified[ICD10: L73.9] Diagnosis: Functional dyspepsia[ICD10: K30] Diagnosis: FLU VACCINE[ICD10: Z23] Belia SMITH [facility] CPT-4: 89084 12/29/2014 ([id number]) OFFICE/OUTPATIENT VISIT EST 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] Diagnosis: RESTLESS LEGS SYNDROME[ICD9: 333.94] Diagnosis: MIGRAINE NOS/NOT INTRCBL[ICD9: 346.90] [facility]: 24519 09/02/2014 ([id number]) OFFICE/OUTPATIENT VISIT EST Diagnosis: Cervical radiculopathy[ICD9: 723.4] Diagnosis: Cervicalgia[ICD9: 723.1] Diagnosis: Degenerative disc disease, cervical[ICD9: 722.4] 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I[ICD9: 250.00] [facility]: 84533 04/01/2014 OFFICE/OUTPATIENT VISIT EST Diagnosis: Reactive airway disease[ICD9: 493.90] [facility]: 62196 03/16/2014 ([id number]) OFFICE/OUTPATIENT VISIT EST Diagnosis: BRONCHITIS, ACUTE[ICD9: 466.0] Diagnosis: Reactive airway disease[ICD9: 493.90] [facility]: 77743 03/09/2014 OFFICE/OUTPATIENT VISIT EST Diagnosis: BRONCHITIS, ACUTE[ICD9: 466.0] Diagnosis: WHEEZING[ICD9: 786.07] Huong Peguero [facility] CPT-4: 90317 03/03/2014 OFFICE/OUTPATIENT VISIT EST Diagnosis: BRONCHITIS, ACUTE[ICD9: 466.0] Diagnosis: WHEEZING[ICD9: 786.07] Huong Peguero [facility] CPT-4: 30854 03/01/2014 ([id number]) OFFICE/OUTPATIENT VISIT EST Diagnosis: GERD[ICD9: 530.81] Diagnosis: ARTHRALGIA-MULTIPLE SITES[ICD9: 719.49] Diagnosis: LUMB/LUMBOSAC DISC DEGEN[ICD9: 722.52] Diagnosis: - I - FIBROMYALGIA[ICD9: 729.1] Belia REID [facility] CPT-4: 38473 02/09/2014 ([id number]) OFFICE/OUTPATIENT VISIT EST Diagnosis: Peptic ulcer disease[ICD9: 533.90] Diagnosis: RESTLESS LEGS SYNDROME[ICD9: 333.94] Diagnosis: Neuropathy[ICD9: 355.9] Belia SMITH [facility] CPT-4: 00284 12/23/2013 ([id number]) OFFICE/OUTPATIENT VISIT EST Diagnosis: URINARY TRACT INFECTION[ICD9: 599.0] Belia REID [facility] CPT-4: 99932 10/30/2013 ([id number]) OFFICE/OUTPATIENT VISIT EST Diagnosis: Flank pain[ICD9: 789.00] Belia POP [facility] CPT-4: 87109 10/21/2013 ([id number]) OFFICE/OUTPATIENT VISIT EST Diagnosis: INFLAMED SEBORR KERATOS[ICD9: 702.11] Diagnosis: Brachioradial pruritus[ICD9: 698.9] Diagnosis: ASTHMA NOS[ICD9: 493.90] Belia POOLE [facility] CPT-4: 83941 10/05/2013 ([id number]) OFFICE/OUTPATIENT VISIT EST Diagnosis: HYPERTENSION[ICD9: 401.9] Diagnosis: - I - FIBROMYALGIA[ICD9: 729.1] Diagnosis: DIZZINESS/VERTIGO[ICD9: 780.4] Diagnosis: MIGRAINE NOS/NOT INTRCBL[ICD9: 346.90] Diagnosis: Diabetic peripheral neuropathy[ICD9: 250.60] Diagnosis: Flank pain[ICD9: 789.00] Belia BRUNSON Yuridia [facility] CPT-4: 41802 08/04/2013 ([id number]) OFFICE/OUTPATIENT VISIT EST Diagnosis: ALLERGIC RHINITIS[ICD9: 477.9] Belia BRUNSON Bushra Mayda [facility]: 63352 07/13/2013 OFFICE/OUTPATIENT VISIT EST Diagnosis: URINARY TRACT INFECTION[ICD9: 599.0] Huong De LunaKp ARNOLD uYridia [facility]: 59355 07/03/2013 OFFICE/OUTPATIENT VISIT EST Diagnosis: HYPERTENSION[ICD9: 401.9] Diagnosis: URINARY TRACT INFECTION[ICD9: 599.0] Diagnosis: BACKACHE[ICD9: 724.5] Diagnosis: URINARY INCONTINENCE[ICD9: 788.30] Huong De LunaKp SALAZAR Yuridia [facility]: 97249 05/27/2013 ([id number]) OFFICE/OUTPATIENT VISIT EST Diagnosis: Flank pain[ICD9: 789.00] Belia Zacharynilson BRUNSON BushraMayda KIESHA [facility] CPT-4: 46020 05/25/2013 ([id number]) OFFICE/OUTPATIENT VISIT EST Diagnosis: B-COMPLEX DEFIC NEC[ICD9: 266.2] Belia BRUNSON BushraMayda [facility]: 23972 05/04/2013 ([id number]) OFFICE/OUTPATIENT VISIT EST Diagnosis: ALLERGIC RHINITIS[ICD9: 477.9] Diagnosis: Vitamin B12 deficiency[ICD9: 266.2] Belia THOMPSON Yuridia [facility]: 90507 04/17/2013 ([id number]) OFFICE/OUTPATIENT VISIT EST 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I[ICD9: 250.00] Diagnosis: URINARY TRACT INFECTION[ICD9: 599.0] Diagnosis: DIZZINESS/VERTIGO[ICD9: 780.4] Diagnosis: DIARRHEA[ICD9: 787.91] Belia HSUQUELINE S. ORENDE R [facility] CPT-4: 31096 04/06/2013 ([id number]) OFFICE/OUTPATIENT VISIT EST Diagnosis: URINARY TRACT INFECTION[ICD9: 599.0] Diagnosis: URINARY RETENTION[ICD9: 788.20] Belia REID DO [facility] CPT-4: 19538 11/10/2012 ([id number]) OFFICE/OUTPATIENT VISIT EST Diagnosis: TACHYCARDIA[ICD9: 785.0] Diagnosis: SYNCOPE AND COLLAPSE[ICD9: 780.2] Diagnosis: CONSCIOUSNS ALTERAT NEC[ICD9: 780.09] Belia REID [facility] CPT-4: 51004 09/02/2012 OFFICE/OUTPATIENT VISIT EST Diagnosis: TACHYCARDIA[ICD9: 785.0] Diagnosis: SYNCOPE AND COLLAPSE[ICD9: 780.2] Belia Humphriesnilson KOFFI Reggie TomlinsonMayda ANUSHKA [facility] CPT-4: 94785 08/04/2012 ([id number]) OFFICE/OUTPATIENT VISIT EST Diagnosis: Loss of consciousness[ICD9: 780.09] Diagnosis: Tachycardia[ICD9: 785.0] Diagnosis: MALAISE AND FATIGUE[ICD9: 780.79] Belia Humphriesbeckyannie CORNELLLIN Reggie REID [facility] CPT-4: 66882 07/21/2012 ([id number]) OFFICE/OUTPATIENT VISIT EST Diagnosis: BRONCHITIS, ACUTE[ICD9: 466.0] Diagnosis: ASTHMA NOS[ICD9: 493.90] Belia Humphriesnilson BELIA BushraMayda KIESHA VIRGILIO [facility] CPT-4: 98549 07/02/2012 ([id number]) OFFICE/OUTPATIENT VISIT EST Diagnosis: CEPHALGIA[ICD9: 784.0] Belia Humphriesnilson BELIA BushraMayda RALF Peguero [facility] CPT-4: 95156 06/25/2012 ([id number]) OFFICE/OUTPATIENT VISIT EST Diagnosis: GERD[ICD9: 530.81] Diagnosis: DIARRHEA[ICD9: 787.91] Diagnosis: URINARY TRACT INFECTION[ICD9: 599.0] Diagnosis: ASTHMA NOS[ICD9: 493.90] Diagnosis: ALLERGIC RHINITIS[ICD9: 477.9] Belia CORNELLLINE Bushra Mayda ANUSHKA [facility] CPT-4: 37280 06/24/2012 ([id number]) OFFICE/OUTPATIENT VISIT EST Diagnosis: MIGRAINE NOS/NOT INTRCBL[ICD9: 346.90] Diagnosis: TREMOR NEC[ICD9: 333.1] Diagnosis: CHRONIC PAIN SYNDROME[ICD9: 338.4] Beliahanna BASS MARIE BushraMayda ANUSHKA [facility] CPT-4: 77409 05/20/2012 ([id number]) OFFICE/OUTPATIENT VISIT EST Diagnosis: DIZZINESS/VERTIGO[ICD9: 780.4] Diagnosis: PALPITATIONS[ICD9: 785.1] Diagnosis: TREMOR NEC[ICD9: 333.1] Diagnosis: ANXIETY STATE NOS[ICD9: 300.00] Diagnosis: POSTTRAUMATIC STRESS DISORDER[ICD9: 309.81] Belia CORNELLLINE BushraMayda ANUSHKA [facility] CPT-4: 70182 05/08/2012 ([id number]) OFFICE/OUTPATIENT VISIT EST Diagnosis: MIGRAINE NOS/NOT INTRCBL[ICD9: 346.90] Diagnosis: FIBROMYALGIA[ICD9: 729.1] Diagnosis: SYNCOPE AND COLLAPSE[ICD9: 780.2] Diagnosis: Diabetic peripheral neuropathy[ICD9: 250.60] Belia CORNELLLINE BushraMayda ANUSHKA [facility] CPT-4: 61217 04/22/2012 OFFICE/OUTPATIENT VISIT EST Diagnosis: ROTATOR CUFF DIS NEC[ICD9: 726.19] Diagnosis: JOINT PAIN-SHLDER[ICD9: 719.41] Diagnosis: DYSPEPSIA[ICD9: 536.8] Belia BRUNSON BushraMayda ZACHARYBECKYReggie Peguero [employer] [facility] CPT-4: 18738 02/13/2012 ([id number]) OFFICE/OUTPATIENT VISIT EST Diagnosis: MIGRAINE NOS/NOT INTRCBL[ICD9: 346.90] Diagnosis: GERD[ICD9: 530.81] Diagnosis: DYSPEPSIA[ICD9: 536.8] Belia BRUNSON BushraMayda RALF [employer] [facility] CPT-4: 99008 01/28/2012 OFFICE/OUTPATIENT VISIT EST Diagnosis: CEPHALGIA[ICD9: 784.0] Diagnosis: MIGRAINE NOS/NOT INTRCBL[ICD9: 346.90] Diagnosis: GERD[ICD9: 530.81] Diagnosis: INSOMNIA NOS[ICD9: 780.52] Belia DOMINGUEZ [facility] CPT-4: 12376 12/26/2011 ([id number]) OFFICE/OUTPATIENT VISIT EST Diagnosis: CEPHALGIA[ICD9: 784.0] Diagnosis: MIGRAINE NOS/NOT INTRCBL[ICD9: 346.90] Diagnosis: MALAISE AND FATIGUE[ICD9: 780.79] Diagnosis: FIBROMYALGIA[ICD9: 729.1] Diagnosis: ALLERGIC RHINITIS[ICD9: 477.9] Belia Tomlinson Mayda ANUSHKA [employer] [facility] CPT-4: 30285 11/14/2011 ([id number]) OFFICE/OUTPATIENT VISIT EST Diagnosis: MALAISE AND FATIGUE[ICD9: 780.79] Diagnosis: MUSCLE WEAKNESS-GENERAL[ICD9: 728.87] Diagnosis: MIGRAINE NOS/NOT INTRCBL[ICD9: 346.90] Diagnosis: JOINT PAIN-SHLDER[ICD9: 719.41] Belia CORNELLLINE BushraMayda ANUSHKA [employer] [facility] CPT-4: 34699 09/12/2011 ([id number]) OFFICE/OUTPATIENT VISIT EST Diagnosis: CONCUSSION[ICD9: 850.9] Diagnosis: Ataxia[ICD9: 781.3] Diagnosis: DIZZINESS/VERTIGO[ICD9: 780.4] Belia Tomlinson Mayda ANUSHKA [facility] CPT-4: 56255 08/15/2011 ([id number]) OFFICE/OUTPATIENT VISIT EST Diagnosis: THROMBOPHLEBITIS[ICD9: 451.9] Diagnosis: Subacromial bursitis[ICD9: 726.19] Diagnosis: ALLERGIC RHINITIS[ICD9: 477.9] Diagnosis: Lipoma[ICD9: 214.9] Belia TomlinsonMayda ANUSHKA [employer] [facility] CPT-4: 63131 08/09/2011 ([id number]) OFFICE/OUTPATIENT VISIT EST Diagnosis: THROMBOPHLEBITIS[ICD9: 451.9] Diagnosis: Arm pain[ICD9: 729.5] Diagnosis: Clostridium difficile colitis[ICD9: 008.45] Diagnosis: URINARY TRACT INFECTION[ICD9: 599.0] Belia Anushka [facility]: 85469 07/03/2011 ([id number]) OFFICE/OUTPATIENT VISIT EST Diagnosis: ARTHRALGIA-MULTIPLE SITES[ICD9: 719.49] Diagnosis: Muscle cramp[ICD9: 729.82] Diagnosis: INSOMNIA NOS[ICD9: 780.52] [facility]: 60985 06/04/2011 OFFICE/OUTPATIENT VISIT EST Diagnosis: Headache[ICD9: 784.0] Diagnosis: Allergic rhinitis[ICD9: 477.9] [facility]: 99862 05/03/2011 OFFICE/OUTPATIENT VISIT EST Diagnosis: LUMB/LUMBOSAC DISC DEGEN[ICD9: 722.52] Diagnosis: MIGRAINE NOS/NOT INTRCBL[ICD9: 346.90] Diagnosis: CHRONIC PAIN SYNDROME[ICD9: 338.4] Diagnosis: RESTLESS LEGS SYNDROME[ICD9: 333.94] Belia Anushka CONRELL CLAYTON Yuridia [facility] C[facility]: 21769 04/05/2011 OFFICE/OUTPATIENT VISIT EST Diagnosis: MIGRAINE NOS/NOT INTRCBL[ICD9: 346.90] Diagnosis: GERD[ICD9: 530.81] [facility]: 86729 03/08/2011 OFFICE/OUTPATIENT VISIT EST Diagnosis: URINARY TRACT INFECTION[ICD9: 599.0] Diagnosis: Vertigo[ICD9: 780.4] Diagnosis: GERD[ICD9: 530.81] [facility]: 65546 01/24/2011 OFFICE/OUTPATIENT VISIT EST Diagnosis: Hypotension[ICD9: 458.9] Diagnosis: Syncopal episodes[ICD9: 780.2] Diagnosis: MIGRAINE NOS/NOT INTRCBL[ICD9: 346.90] Diagnosis: MALAISE AND FATIGUE[ICD9: 780.79] Belia Zacharynilson Paredes Yuridia [facility] CPT-[facility]: 96997 01/02/2011 OFFICE/OUTPATIENT VISIT EST Diagnosis: Tinea cruris[ICD9: 110.3] Diagnosis: Intertrigo[ICD9: 695.89] Diagnosis: MIGRAINE NOS/NOT INTRCBL[ICD9: 346.90] Belia Smithannie SONJA JOHN PAUL SMayda [facility] CPT-4: 36510 12/07/2010 OFFICE/OUTPATIENT VISIT EST Diagnosis: PALPITATIONS[ICD9: 785.1] Diagnosis: ANXIETY STATE NOS[ICD9: 300.00] Belia Zacharybeckyannie BELIA SMayda [facility] CPT-4: 13487 11/16/2010 OFFICE/OUTPATIENT VISIT EST Diagnosis: URINARY TRACT INFECTION[ICD9: 599.0] Diagnosis: MIGRAINE NOS/NOT INTRCBL[ICD9: 346.90] Iraida CASILLAS UELINE S. [facility] DO [facility] CPT-4: 61900 11/02/2010 OFFICE/OUTPATIENT VISIT EST Diagnosis: ALLERGIC RHINITIS[ICD9: 477.9] Diagnosis: ANXIETY STATE NOS[ICD9: 300.00] Belia BRUNSON SMayda [facility] CPT-4: 52177 10/18/2010 OFFICE/OUTPATIENT VISIT EST Belia Zacharybeckyannie CORNELLBELIA SMayda ORE NDER DO [facility] CPT- 4: 63952 09/19/2010 OFFICE/OUTPATIENT VISIT EST Belia Zacharybeckyannie CORNELLBELIA [facility] CPT- 4: 92739 09/06/2010 ([id number]) OFFICE/OUTPATIENT VISIT EST Belia Zacharybeckyannie HSUQ ULUBNA [facility] CPT-4: 91412 08/10/2010 ([id number]) OFFICE/OUTPATIENT VISIT EST Belia Smithannie SONJA ULUBNA S. [facility] CPT-4: 11207 05/11/2010 ([id number]) OFFICE/OUTPATIENT VISIT, EST Belia HSU ROBERTOCLAYTON S. [facility] CPT-4: 97061 04/06/2010 ([id number]) OFFICE/OUTPATIENT VISIT, EST Belia DELGADO S. [facility] CPT-4: 24858 02/09/2010 ([id number]) OFFICE/OUTPATIENT VISIT, EST Belia DELGADO SMayda [facility] CPT-4: 58554 01/05/2010 ([id number]) OFFICE/OUTPATIENT VISIT, EST Belia DELGADO SMayda [facility] CPT-4: 75944 12/07/2009 ([id number]) OFFICE/OUTPATIENT VISIT, EST Belia DELGADO S. [facility] CPT-4: 17685 11/08/2009 ([id number]) OFFICE/OUTPATIENT VISIT, EST Belia DELGADO SMayda [facility] CPT-4: 37060 10/24/2009 ([id number]) OFFICE/OUTPATIENT VISIT, EST Belia DELGADO SMayda [facility] CPT-4: 58751 07/25/2009 ([id number]) OFFICE/OUTPATIENT VISIT, EST Belia DELGADO [facility]Mayda [facility] CPT-4: 44764 05/26/2009 Plan of Care Planned Activity Notes Codes Status Date Visit Diagnosis Plan: Colitis Discussion: Flagyl plus cipro to cover for both colitis and UTI Notify or to ER if worsening ICD-9 : 558.9 ICD-10 : K52.9 05/26/2019 Visit Diagnosis Plan: Acute febrile illness Discussion : Notify if worsens ICD-9 : 780.60 ICD-10 : R50.9 05/26/2019 Appointment: Pattie Sotomayor [address] [place] [address] RESCHEDULED 05/18/2019 Visit Diagnosis Plan: Chronic obstructive pulmonary di sease, unspecified Discussion: Recommend pulmonary rehab Patient states she never went to pulmonary rehab due to cost as well as transportation issues Finish trelagy Stop singulair Decrease hydroxyzine to 25mg po q HS Fwup [address] scan of Chest results discussed ICD-9 : 496 ICD-10 : J44.9 05/13/2019 Appointment: Belia Reid WPtel: [phone] Hospital Follow Up 05/13/2019 Visit Diagnosis Plan: COUGH Discussion: Check CT scan of chest ICD-9 : 786.2 ICD-10 : R05 05/06/2019 Visit Diagnosis Plan: Stridor Discussion: Add Trelagy 1 p daily Add Singulair 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 ICD-9 : 786.1 ICD-10 : R06.1 05/06/2019 Appointment: Belia Reid WPtel: [address] [place] [address] FOLLOW UP 05/06/2019 Patient Education: Singulair- [employer] Coupon [id number] [email or web address]/[email or web address]/resources/[email or web address]/[email or web address]-mb Completed 05/06/2019 Appointment: Belia Reid WPtel: [address] [place] [address] [place] RESCHEDULED 04/30/2019 Visit Diagnosis Plan: Stridor [...] : G25.5 04/29/2019 Appointment: Belia Reid WPtel: [address] [place] [address] Hospital Follow Up 04/29/2019 Patient Education: Valium- [employer] Coupon [id number] [email or web address]/[email or web address]/resources/getResource/61/[email or web address] Completed 04/29/2019 Visit Diagnosis Plan: Flank pain [...] ICD-10 : R63.5 04/16/2019 Appointment: Pattie Sotomayor [address] [facility] [place] ACUTE ILLNESS 04/16/2019 Patient Education: cyclobenzaprine- [employer] [place] [id number] [email or web address].iosil Energy/samplemd/resources/getResource/61/[email or web address] Completed 04/16/2019 Visit Diagnosis Plan: Migraine, unspecif ied, not intractable, without status migrainosus Discussion: Increase gabapentin to 600mg po BID ICD-9 : 346.90 ICD-10 : G43.909 04/08/2019 Visit Diagnosis Plan: Generalized pruritus Discussion: Hydroxyzine 25mg po TID for itching and anxiety ICD-9 : 698.9 ICD-10 : L29.9 04/08/2019 Appointment: Belia Reid WPtel: [address] [place] [address] ACUTE ILLNESS 04/08/2019 Visit Diagnosis Plan: Cervicalgia [...] : M75.52 01/22/2019 Appointment: Belia Reid WPtel: [address] [place] [address] Hospital Follow Up 01/22/2019 Visit Diagnosis Plan: Abdominal pain Discussion: urine culture sent to assess for any infection. rocephin given in office to cover for pyelonephritis. instructed to push fluids. call office with any new or worsening symptoms. ICD-9 : 789.00 ICD-10 : R10.9 01/07/2019 Appointment: Pattie Sotomayor [address] [facility] [id number] ACUTE ILLNESS 01/07/2019 Visit Diagnosis Plan: Low back pain Discussion: Stat C T of abdomen/pelvis now ICD-9 : 724.2 ICD-10 : M54.5 12/24/2018 Appointment: Belia Reid WPtel: [address] [place] [address] US FOLLOW UP 12/24/2018 Visit Diagnosis Plan: Migraine, [...] : M79.7 11/20/2018 Appointment: Belia Reid WPtel: [address] [place] [address] ACUTE ILLNESS 11/20/2018 Patient Education: [email or web address] Coupon [id number] [email or web address] Completed 11/20/2018 Visit Diagnosis Plan: Migraine, unspecif ied, intractable, without status migrainosus Discussion: toradol/phenergan given in o ffice (60 mg toradol, 12.5 mg phenergan). instructed to call if no improvement or worsening. instructed to follow up with railroad engineer since headaches are occurring more frequently to make sure vision is not the cause. ICD-9 : 346.91 ICD-10 : G43.919 11/04/2018 Visit Diagnosis Plan: Acute sinusitis, unspecified Dis cussion: zithromax prescribed to cover for sinus infection due to length of symptoms and clinincal s/s. ICD-9 : 461.9 ICD-10 : J01.90 11/04/2018 Appointment: Pattie Sotomayor [address] [place] [address] ACUTE ILLNESS 11/04/2018 Appointment: Belia Reid WPtel: [address] [place] [address] US CANCELED 09/24/2018 Visit Diagnosis Plan: Type 2 diabetes me llitus with diabetic neuropathy, unspecified Discussion: Retry gabapentin 300mg po q HS ICD-9 : 250.60 ICD-10 : E11.40 09/18/2018 Visit Diagnosis Plan: Vitamin D deficiency, unspecifie d Discussion: Increase Vitamin D3 to 10,000 u daily ICD-9 : 268.9 ICD-10 : E55.9 09/18/2018 Visit Diagnosis Plan: Encounter for [facility] medical examination without abnormal findings Discussion: [...] I10 09/18/2018 Appointment: Belia Reid WPtel: [phone] [facility] Annual Well Visit 09/18/2018 Patient Education: gabapentin- OptimizeRX Coupon [id number] [email or web address].com/samplemd/resources/getResource/[email or web address] Completed 09/18/2018 Visit Diagnosis Plan: Pain in [...] ICD-10 : M54.89 09/08/2018 Appointment: Pattie Sotomayor [address] [place], [place] [phone] ACUTE ILLNESS 09/08/2018 Patient Education: prednisone- OptimizeRX Coupon [id number] [email or web address]://[email or web address].com/samplemd/resources/getResource/61/[email or web address] Completed 09/08/2018 Visit Diagnosis Plan: Pruritus, unspecified [...] : E10.9 08/20/2018 Appointment: Belia Reid WPtel: [address] [place] [address] ACUTE ILLNESS 08/20/2018 Patient Education: Lexapro- OptimizeRX Coupon [id number] Completed 08/20/2018 Patient Education: hydroxyzine HCl- OptimizeRX Coupon [id number] Completed 08/20/2018 Care Plan: MAMMOGRAM SCREENING [facility] : 2 6347-5 Pending 08/20/2018 Visit Diagnosis Plan: Paroxysmal atrial fibrillation D iscussion: Discuss eliquis need with cardiology at [facility] due to cost ICD-9 : 427.31 ICD-10 : I48.0 06/19/2018 Visit Diagnosis Plan: Hypotension due to drugs Discuss ion: Discussed decreasing cardizem dose due to low BP and edema but sees cardiology next week Follow Up: 1 months ICD-9 : 458.8 ICD-10 : I95.2 06/19/2018 Appointment: Belia Reid WPtel: [facility] FOLLOW UP 06/19/2018 Visit Diagnosis Plan: Essential [...] : R61 06/09/2018 Appointment: Belia Reid WPtel: [address] [place] [address] [place] FOLLOW UP 06/09/2018 Care Plan: CHEST X-RAY 2VW FRONTAL&LATL LOINC : 27979-7 Pending 05/26/2018 Visit Diagnosis Plan: Supraventricular tachycardia [...] : R53.1 05/21/2018 Appointment: Belia Reid WPtel: [address] [place] [address] Hospital Follow Up 05/21/2018 Visit Diagnosis Plan: Cervical disc diso rder with radiculopathy, unspecified cervical region Discussion: Scheduled for surgery on 06/02 10/[address] Faulkner ICD-9 : 722.0 ICD-10 : M50.10 04/16/2018 Appointment: Belia Reid WPtel: [address] [place] [address] Hospital Follow Up 04/16/2018 Visit Diagnosis Plan: [...] ICD-10 : G43.919 04/01/2018 Appointment: Pattie Sotomayor [address] [place] [address] ACUTE ILLNESS 04/01/2018 Appointment: Belia Reid WPtel: [address] [place] [address] 03/17/2018 Visit Diagnosis Plan: Chronic obstructiv e [...] : E11.65 03/06/2018 Appointment: Belia Reid WPtel: [facility] Hospital Follow Up 03/06/2018 Visit Diagnosis Plan: Cervicalgia Discussion: spoke wi dr. reid about patient. increased gabapentin to bid and started on celebrex bid. tramadrol rx written out to take prn. keep scheduled appt next week for myelogram. ICD-9 : 723.1 ICD-10 : M54.2 02/05/2018 Appointment: Pattie Sotomayor [address] [place] [address] ACUTE ILLNESS 02/05/2018 Care Plan: X-RAY EXAM NECK SPINE 4/5VWS cervical LOINC : 69899-4 Pending 01/21/2018 Visit Diagnosis Plan: Candidiasis of [...] ICD-10 : M54.2 01/20/2018 Appointment: Pattie Sotomayor [address] [place] [address] ACUTE ILLNESS 01/20/2018 Visit Diagnosis Plan: Pain in thoracic spine Discussio n: Proceed with CT scan of thoracic spine Will likely need PT ICD-9 : 724.1 ICD-10 : M54.6 12/25/2017 Appointment: Belia Reid WPtel: [address] [place] [address] FOLLOW UP 12/25/2017 Care Plan: CT THORAX W/O DYE LOINC : 473 66-0 Pending 12/25/2017 Visit Diagnosis Plan: Pain in thoracic spine Discussio n: Stretches Alternated heat/ice Topical aspercreme with lidocaine Flexeril Recheck 1 week Flu and Pneumovax given ICD-9 : 724.1 ICD-10 : M54.6 12/17/2017 Appointment: Belia Reid WPtel: [address] [place] [address] ACUTE ILLNESS 12/17/2017 Patient Education: Patient Medication [...] : J44.1 10/30/2017 Appointment: Belia Reid WPtel: [facility] [place] [address] [place] FOLLOW UP 10/30/2017 Patient Education: Patient Medication Summary Completed 10/30/2017 Visit Diagnosis Plan: Chronic obstructiv e pulmonary disease with acute lower respiratory infection Discussion: Continue SVNs with albuterol q4hrs Add Trelagy 1 inhalation daily Finish steroids Increase water intake Follow Up: 1 weeks ICD-9 : 496 ICD-10 : J44.0 10/23/2017 Appointment: Belia Reid WPtel: [address] [place], [place] [phone] WORK IN 10/23/2017 Patient Education: Patient Medication Summary Completed 10/23/2017 Appointment: Belia Reid WPtel: [address] [place] [address] NO SHOW 10/16/2017 Visit Diagnosis Plan: Confusional arousals Discussion: David medicaion related Decrease amitriptyelne to 1/2 tab for 1 week then stop Follow Up: 1 months ICD-9 : 327.41 ICD-10 : G47.51 09/17/2017 Visit Diagnosis Plan: Type 2 diabetes mellitus with hy perglycemia Discussion: Continue amaryl and metformin and accuchecks at least BID Obtain most recent HbA1C done at ICD-9 : 250.02 ICD-10 : E11.65 09/17/2017 Appointment: Belia Reidtel: [address] [place] [address] Annual Well Visit 09/17/2017 Patient Education: Patient Medication Summary Completed 09/17/2017 Appointment: Belia Reidtel: [address] [place], [place] [phone] [place] INJECTION 08/26/2017 Patient Education: Patient Medication Summary Completed 08/26/2017 Appointment: Belia Reidtel: [address] [place], [place] [phone] CANCELED 07/31/2017 Visit Diagnosis Plan: Encounter for [...] ICD-10 : J20.9 07/19/2017 Appointment: Pattie Sotomayor [address] [place] [address] ACUTE ILLNESS 07/19/2017 Patient Education: Patient Medication Summary Completed 07/19/2017 Care Plan: MAMMOGRAM SCREENING LOINC : 2 6347-5 Pending 07/19/2017 Patient Education: Patient Medication Summary Completed 06/05/2017 Care Plan: LIPID PANEL LOINC : 01621-7 Pending 06/05/2017 Care Plan: A1C HPLC LOINC : 57690-5 Pending 06/05/2017 Visit Diagnosis Plan: Rash and [...] ICD-10 : R21 05/29/2017 Appointment: Pattie Sotomayor [address] [place], [place] [address]a [facility] FOLLOW UP 05/29/2017 Patient Education: Patient Medication Summary Completed 05/29/2017 Visit Diagnosis Plan: Tinea corporis Discussion: Diflu can and topical nystatin Follow Up: 2 weeks ICD-9 : 110.5 ICD-10 : B35.4 05/07/2017 Visit Diagnosis Plan: Diarrhea, unspecified Discussion : Diflucan Cholestyramine Recheck 2weeks ICD-9 : 787.91 ICD-10 : R19.7 05/07/2017 Appointment: Belia Reid WPtel: [address] [place] [address] US FOLLOW UP 05/07/2017 Patient Education: Patient Medication Summary Completed 05/07/2017 Appointment: Belia Reid WPtel: [address] [place], [place] [phone] [place] RESCHEDULED 04/30/2017 Visit Diagnosis Plan: Chronic obstructiv e pulmonary disease with (acute) exacerbation Discussion: Finish prednisone Continue S VNS with albuterol ICD-9 : 491.21 ICD-10 : J44.1 03/18/2017 Visit Diagnosis Plan: Stridor Discussion: Increase Ati van 0.5mg po to TID routinely for next week then can go back to prn ICD-9 : 786.1 ICD-10 : R06.1 03/18/2017 Appointment: Belia Reid WPtel: [address] [place] [address] ER Follow UP 03/18/2017 Patient Education: Patient [...] : E11.65 02/27/2017 Appointment: Belia Reid WPtel: [address] [place], [place] [phone] [place] FOLLOW UP 02/27/2017 Patient Education: Patient [...] ICD-10 : E11.65 02/22/2017 Appointment: Pattie Sotomayor [address] [place], [place] [phone] ACUTE ILLNESS 02/22/2017 Patient Education: Patient Medication Summary Completed 02/22/2017 Patient Education: Maddy - 18+ James bowser 02/22/2017 Visit Diagnosis Plan: Urinary tract infection, site no t specified Discussion: Sejal moy ICD-9 : 599.0 ICD-10 : N39.0 01/23/2017 [...] : J18.9 01/23/2017 Appointment: Belia Reid WPtel: [address] [place] [address] ER Follow UP 01/23/2017 Patient Education: Patient Medication Summary Completed 01/23/2017 Appointment: Pattie Sotomayor [address] [place], [place] [phone] [place] CANCELED 01/17/2017 Appointment: Pattie Sotomayor [address] [place] [address] Annual Well Visit 01/14/2017 Visit Diagnosis Plan: Type 2 diabetes mellitus with hy perglycemia Discussion: Check CMP, HbA1C Flu shot and Prevnar 13 given Follow Up: 3 months ICD-9 : 250.02 ICD-10 : E11.65 12/20/2016 Visit Diagnosis Plan: Localized edema Discussion: Low Na diet Compression socks/Elevate feet ICD-9 : 782.3 ICD-10 : R60.0 12/20/2016 Appointment: Belia Reid WPtel: [address] [place] [address] US FOLLOW UP 12/20/2016 Patient Education: Patient Medication Summary Completed 12/20/2016 Patient Education: Patient Medication Summary Completed 10/10/2016 Visit Plan: Xrays of cervical, thoracic and lumbar spine at [facility] for Mobic (stop NSAIDS except Tylenol) and Flexeril UA sent for C&S Using SVN Call in 2-3 days if pain not improved or any worsening 10/08/2016 Appointment: Celeste Ferreira WPtel: [address] [place], [place] [address] ACUTE ILLNESS 10/08/2016 Patient Education: Patient Medication [...] : E11.65 09/19/2016 Appointment: Belia Reid WPtel: [address] [place], [place] [id number] 09/18 confirmed`sl FOLLOW UP 09/19/2016 Patient Education: [...] : R10.84 08/20/2016 Appointment: Belia Reid WPtel: [address] [place], [place] [phone] 08/16 confirmed~sl FOLLOW UP 08/20/2016 Patient Education: [...] : J44.9 06/19/2016 Appointment: Belia Reid WPtel: [address] [place], [place] [phone] 06/18 confirmed ~ Hospital Follow Up 06/19/2016 Patient Education: Patient Medication Summary Completed 06/19/2016 Visit Diagnosis Plan: Chronic obstructive pulmonary di sease, unspecified Discussion: Continue current inhalers ICD-9 : 496 ICD-10 : J44.9 06/04/2016 Visit Diagnosis Plan: Personal history of urinary (tra ct) infections Discussion: Sees urology June 22 at [facility] Restart prophylactic Macrobid at QOD ICD-9 : V13.02 ICD-10 : Z87.440 06/04/2016 Appointment: Belia Reid WPtel: [address] [place], [place] [phone] 06/01 confirmed~sl FOLLOW UP 06/04/2016 Patient Education: [...] R06.1 05/02/2016 Appointment: Belia Reid WPtel: [address] [place], [place] [phone] 05/01 confirmed [facility] Hospital Follow Up 05/02/2016 Patient Education: [...] : N39.0 04/03/2016 Appointment: Belia Reid WPtel: [address] [place] [address] 04/02 confirmed~ Hospital Follow Up 04/03/2016 Patient Education: Patient Medication Summary Completed 04/03/2016 Visit Plan: Lungs are clear Her symptoms and exam are all upper airway restriction/constriction Can try supportive care Rx as above Follow up PRN 02/29/2016 Appointment: Lidia Hwang [address] [place] [address] ACUTE ILLNESS 02/29/2016 Patient Education: Patient Medication Summary Completed 02/29/2016 Visit Plan: Toradol/Phenergan today for Migraine Change to Clindamycin to cover lactobacillus for UTI Cover with flagyl due to hx of C. Diff 02/02/2016 Appointment: Belia Reid WPtel: [address] [place] [address] 01/31 confirmed` ACUTE ILLNESS 02/02/2016 Patient Education: Patient Medication Summary Completed 02/02/2016 Visit Plan: Increase neurontin to 300mg q AM and 600mg q PM Discussed neurology re-evaluation Flu shot given Need to check on Pneumonia shot Rx written out for albuterol 01/05/2016 Appointment: Belia Reid WPtel: [address] [place], [place] [phone] 01/03 confirmed ~sl Annual Well Visit 01/05/2016 Patient Education: Patient Medication Summary Completed 01/05/2016 Visit Plan: Cipro Culture urine hydrate Flexeril refilled Alternate heat and ice for back Increase gabapentin to 300mg po BID Notify if worsens 12/05/2015 Appointment: Belia Reid WPtel: [address] [place], [place] [phone] 11/30 confirmed~sl ACUTE ILLNESS 12/05/2015 Patient Education: Patient Medication Summary Completed 12/05/2015 Patient Education: Patient Medication Summary Completed 10/27/2015 Care Plan: [place] : [address]-8 Pending 10/27/2015 Care Plan: A1C HPLC LOINC : 85172-9 Pending 10/27/2015 Visit Plan: Lungs are CTA today and is f eeling improved overall Finish meds as ordered Continue inhalers and neb treatments Discussed migraine treatment options She does not feel she needs anything additional added today Refill of Januvia sent since no samples are available today 10/26/2015 Appointment: Lidia Hwang [address] [facility] Hospital Follow Up 10/26/2015 Appointment: Lidia Hwang [address] [place], [place] [phone] CANCELED 10/26/2015 Patient Education: Patient Medication Summary Completed 10/26/2015 Patient Education: Januvia - 18+ - KENNETH - No [place] Completed 10/26/2015 Visit Plan: Office dip still abnormal Cu lture pending Switch to cipro - stop macrobid Push fluids - avoid caffeine Will call with culture results when available Follow up if worsening 10/05/2015 Appointment: Lidia Hwang [address] [facility] ER Follow UP 10/05/2015 Patient Education: Patient Medication Summary Completed 10/05/2015 Visit Plan: Proceed with PT for document ation of ROM and strength of all extremities Proceed with Power Mobility Device Trial of neurontin 300mg q HS--lyrica helped but patient unable to afford Recheck 1month 09/15/2015 Appointment: Belia Reid WPtel: [facility] 09/13 confirmed~sl SPECIAL 09/15/2015 Patient Education: Patient Medication Summary Completed 09/15/2015 Visit Plan: Fille out Loan Discharge Pap erwork for total and permanent disability 08/25/2015 Patient Education: Patient Medication Summary Completed 08/25/2015 Visit Plan: Discussed with Dr Aunshka Haywood at CT of head Will get last date of carotid doppler from her environment artist and update if needed 08/24/2015 Appointment: Lidia Hwang [address] [facility] 08/22 confirmed~sl ACUTE ILLNESS 08/24/2015 Patient Education: Patient Medication Summary Completed 08/24/2015 Patient Education: Patient Medication Summary Completed 08/24/2015 Care Plan: US EXAM OF HEAD AND NECK carotid Ultrasound LOIN C : 05110-4 Pending 08/24/2015 Visit Plan: Long discussion about diet A ccuchecks daily Check HbA1C, CMP Change requip to mirapex 07/05/2015 Appointment: Belia Reid WPtel: [address] [place], [place] [phone] 07/03 confirmed ~sl FOLLOW UP 07/05/2015 Patient Education: Patient Medication Summary Completed 07/05/2015 Visit Plan: Add Breo ellipta 100 1 p BID Continue SVNs with duoneb QID 06/06/2015 Appointment: Belia Reid WPtel: [address] [place] [address] Patient is calling for a ride, then [...] not improving 05/23/2015 Appointment: Huong Osborne WPtel: [address] [place], [place] [phone] ACUTE ILLNESS 05/23/2015 Appointment: Jaiden Lidia [address] [place] [address] ER Follow UP 05/23/2015 Patient Education: Patient Medication Summary Completed 05/23/2015 Visit Plan: Check pancreatic enzymes and US of pancreas as patient can't understand why she has diabetes since has no family history Discussed weight, diet, exercise all play an important role in diabetes and are risk factors as well Continue Januvia and accuchecks daily 05/05/2015 Appointment: Belia Reid WPtel: [address] [place], [place] [address] FOLLOW UP 05/05/2015 Patient Education: Patient Medication Summary Completed 05/05/2015 Care Plan: US EXAM ABDOM COMPLETE LOINC : 43062-1 Ordered 05/05/2015 Visit Plan: Start Januvia 100mg daily [place] with diflucan and culture urine Accuchecks daily alternating times Recheck 6weeks 03/30/2015 Appointment: Belia Reid WPtel: [address] [place], [place] [phone] 03/29 confirmed~lb FOLLOW UP 03/30/2015 Patient Education: Patient Medication Summary Completed 03/30/2015 Appointment: Belia Reid WPtel: [address] [place], [place] [phone] 03/01 needs reschedule due to payment and insurance ~sl FOLLOW UP 03/02/2015 Visit Plan: Patient was just in ER last night so has not filled scripts yet Start Carafate and Flagyl and Cipro Add Hyophen 1 po BID Recheck 1mo 02/03/2015 Appointment: Belia Reid WPtel: [address] [place], [place] [phone] 02/02lm ~sl...02/03/15 appt confirmed cn ACUTE I LLNESS 02/03/2015 Patient Education: Patient Medication Summary Completed 02/03/2015 Visit Plan: Warm soaks to vaginal area K elex and Diflucan and observe Zofran to use prn 12/29/2014 Appointment: Belia Reid WPtel: [address] [place], [place] [phone] 12/28 Confirmed ~ ACUTE ILLNESS 12/29/2014 Patient Education: Patient Medication Summary Completed 12/29/2014 Appointment: Huong Osborne WPtel: [address] [place], [place] [phone] FOLLOW UP 09/24/2014 Appointment: Belia Reid WPtel: [address] [place], [place] [phone] 09/15 confirmed -mf FOLLOW UP 09/16/2014 Visit Plan: Increase requip to 2mg po BI D Increase lyrica to 225mg total a day by adding an extra 75mg in AM Recheck in 2weeks Continue to patch left eye while sleeping 09/02/2014 Appointment: Belia Reid WPtel: [address] [place] [phone] 09/01 appt confirmed Hospital Follow Up 09/02 Patient Education: Patient Medication Summary Completed 09/02/2014 Visit Plan: To [facility] for observat ion to R/O CVA 08/25/2014 Appointment: Huong Osborne WPtel: [address] [place], [place] [phone] ACUTE ILLNESS 08/25/2014 Patient Education: Patient Medication Summary Completed 08/25/2014 Referral: Aaron Jonas WPtel: [facility] [address] [place] location Initiated 04/26/2014 Referral: [facility] Initiated 04/20/2014 Appointment: Belia Reid WPtel: [address] [place], [place] [phone] ER Follow UP 04/01/2014 Patient Education: Patient Medication Summary Completed 04/01/2014 Care Plan: MYELOGRAPHY NECK SPINE LOINC : 28522-2 Ordered 04/01/2014 Visit Plan: Continue Symbicort 160 at 2p BID Continue SVNs with duoneb at least QID Finish Levaquin Recheck 1mo on lyrica 03/16/2014 Appointment: Belia Reid WPtel: [address] [place], [place] [id number] 03/15 voicemail FOLLOW UP 03/16/2014 Patient Education: Patient Medication Summary Completed 03/16/2014 Visit Plan: Restart SVNs with duoneb QID Repeat prednisone Levaquin Continue symbicort Keep lyrica at same dose Recheck 1week 03/09/2014 Appointment: Belia Reid WPtel: [address] [place], [place] [phone] FOLLOW UP 03/09/2014 Patient Education: Patient Medication Summary Completed 03/09/2014 Appointment: Belia Reid WPtel: [address] [place], [place] [phone] 03/03 showed up 15 minutes late for appt -- put her on Huong's side for 10:45am FORGIVEN PER DR FOLLOW UP 03/03/2014 Appointment: Huong Osborne WPtel: [address] [place], [place] [id number] FOLLOW UP 03/03/2014 Patient Education: Patient Medication Summary Completed 03/03/2014 Appointment: Huong Osborne WPtel: [address] [place], [place] [id number] ER Follow UP 03/01/2014 Patient Education: Patient Medication Summary Completed 03/01/2014 Visit Plan: Add carafate for this next m onth Increase lyrica to 150mg q HS 02/09/2014 Appointment: Belia Reid WPtel: [address] [place] [phone] Hospital Follow Up 02/09/2014 Patient Education: Patient Medication Summary Completed 02/09/2014 Visit Plan: Increase omeprazole back to 40mg po BID Use requip in AM and add lyrica 75mg q HS Recheck 1mo 12/23/2013 Appointment: Belia Reid WPtel: [address] [place], [place] [phone] FOLLOW UP 12/23/2013 Patient Education: Patient Medication Summary Completed 12/23/2013 Patient Education: Patient Medication Summary Completed 12/04/2013 Appointment: Belia Reid WPtel: [address] [place], [place] [phone] UA 10/30/2013 Patient Education: Patient Medication Summary Completed 10/30/2013 Appointment: Belia Reid WPtel: [address] [place], [place] [phone] UA 10/21/2013 Patient Education: Patient Medication Summary Completed 10/21/2013 Visit Plan: Cryotherapy as above TAC and hydroxyzine to use prn to itching spots and itching SKs Add Advair HFA 115/21 1 p BID 10/05/2013 Appointment: Belia Reid WPtel: [address] [place] [address] 10/01 pt called and confirmed ACUTE ILLNESS Patient Education: Patient Medication Summary Completed 10/05/2013 Appointment: Belia Reid WPtel: [address] [place], [place] [phone] will pay copay and part of past balance FOLLOW U P 08/04/2013 Patient Education: Patient Medication Summary Completed 08/04/2013 Appointment: Belia Reid WPtel: [address] [place] [phone] US INJECTION 07/13/2013 Patient Education: Patient Medication Summary Completed 07/13/2013 Appointment: Huong Osborne WPtel: [address] [place], [place] [phone] ACUTE ILLNESS 07/03/2013 Patient Education: Patient Medication Summary Completed 07/03/2013 Visit Plan: Cipro and culture urine 05/27/2013 Appointment: Huong Osborne WPtel: [address] [place], [place] 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 is due at appt time FOLLOW UP 05/27/2013 Patient Education: Patient Medication Summary Completed 05/27/2013 Appointment: Belia Reid WPtel: [address] [place], [place] [phone] US UA 05/25/2013 Patient Education: Patient Medication Summary Completed 05/25/2013 Appointment: Belia Reid WPtel: [address] [place], [place] [phone] US INJECTION 05/04/2013 Patient Education: Patient Medication Summary Completed 05/04/2013 Appointment: Belia Reid WPtel: [address] [place], [place] [phone] US INJECTION 04/17/2013 Patient Education: Patient Medication Summary Completed 04/17/2013 Appointment: Belia Reid WPtel: [address] [place] [phone] US INJECTION 04/15/2013 Appointment: Belia Reid WPtel: [address] [place] [phone] 04/02 vm FOLLOW UP 04/06/2013 Patient Education: Patient Medication Summary Completed 04/06/2013 Visit Plan: Obtain lab results including UA from [facility] 11/10/2012 Appointment: Belia Reid WPtel: [address] [place] [address] ER Follow UP 11/10/2012 Patient Education: Patient Medication Summary Completed 11/10/2012 Appointment: Belia Reid WPtel: [address] [place], [place] [phone] 10/30/12 patient canceled appt due to fin ances. Offered to work something out, patient declined-LB FOLLOW UP 11/05/2012 Visit Plan: Continue Bystolic at current dose Pt has fwup with Neurology on September 16 09/02/2012 Appointment: Belia Reid WPtel: [address] [place], [place] [phone] FOLLOW UP 09/02/2012 Patient Education: Patient Medication Summary Completed 09/02/2012 Visit Plan: Continue bystolic at 5mg chris ly Sees Neurology tomorrow Use oxygen at bedtime 08/04/2012 Appointment: Belia Reid WPtel: [address] [place] [address] FOLLOW UP 08/04/2012 Patient Education: Patient Medication Summary Completed 08/04/2012 Appointment: Belia Reid WPtel: [address] [place] [address] Hospital fwup for 07/21/12. merged appointments FOLLOW UP 07/24/2012 Visit Plan: Start Bystolic 5mg daily for tachycardia Fwup with neurology for further workup Overnight O2 sat 07/21/2012 Appointment: Belia Reidtel: [address] [place] [address] Hospital Follow Up 07/21/2012 Patient Education: Patient Medication Summary Completed 07/21/2012 Visit Plan: SVN with Albuterol QID Add A velox 400mg daily Notify if worsens or persists 07/02/2012 Appointment: Belia Reid WPtel: [address] [place], [place] [phone] ACUTE ILLNESS 07/02/2012 Patient Education: Patient Medication Summary Completed 07/02/2012 Appointment: Belia Reidtel: [address] [place] [address] INJECTION 06/25/2012 Patient Education: Patient Medication Summary Completed 06/25/2012 Appointment: Belia Reid WPtel: [address] [place], [place] [phone] FOLLOW UP 06/24/2012 Patient Education: Patient Medication Summary Completed 06/24/2012 Appointment: Belia Reidtel: [address] [place], [place] [id number] 05/19 left message FOLLOW UP 05/20/2012 Patient [...] to 10mg po TID 05/08/2012 Appointment: Belia Reidtel: [address] [place], [place] [phone] ACUTE ILLNESS 05/08/2012 Patient Education: Patient Medication Summary Completed 05/08/2012 Visit Plan: Continue current meds Contin ue lower dose on pain meds and Diazepam Still waiting on paperwork for botox for Migraines Will restart Neurontin at 600mg po q HS Pt going to stop Depakote due to can't afford 04/22/2012 Appointment: Belia Reidtel: [address] [place], [place] [id number] 04/21 [facility] Follow Up 04/22/2012 Patient Education: Patient Medication Summary Completed 04/22/2012 Visit Plan: Injection to shoulder as abo ve Continue current meds Has appointment with neurology on HAs in 02/13/2012 Appointment: Belia Reid WPtel: [address] [place], [place] [phone] Pt does not have $10 copay at [facility] t time - will bring it in next week. Kianna iqbal'ed this. - [place] FOLLOW UP 02/13/2012 Patient Education: Patient Medication Summary Completed 02/13/2012 Visit Plan: Proceed with headache specia list Change nexium to Protonix Phenergan to use prn Sumatriptan to use prn Pt still on Inderal 01/28/2012 Appointment: Belia Reidtel: [address] [place] [address] ER Follow UP 01/28/2012 Patient Education: Patient [...] for sleep 12/26/2011 Appointment: Belia Reid WPtel: [address] [place] [address] 12/24- appt. confirmed FOLLOW UP 2 Patient Education: Patient Medication Summary Completed 12/26/2011 Appointment: Belia Reid WPtel: [address] [place] [address] [place] FOLLOW UP 11/14/2011 Patient Education: Patient Medication Summary Completed 11/14/2011 Appointment: Belia Reid WPtel: [address] [place] [address] [place] FOLLOW UP 09/12/2011 Patient Education: Patient Medication Summary Completed 09/12/2011 Visit Plan: Supportive care Decrease Liseth catalino to 50mg q HS Decrease AM dose of Valium to 5mg q HS Use Endocet sparingly 08/15/2011 Appointment: Belia Reid WPtel: [address] [place] [address] ER Follow UP 08/15/2011 Patient Education: Patient Medication Summary Completed 08/15/2011 Appointment: Belia Reidtel: [address] [place] [address] [place] Spoke directly to patient yesterday and confirmed the appoin tment. cn ACUTE ILLNESS 08/09/2011 Patient Education: Patient Medication Summary Completed 08/09/2011 Appointment: Belia Reid WPtel: [address] [place], [place] [phone] Hospital Follow Up 07/03/2011 Patient Education: Patient Medication Summary Completed 07/03/2011 Appointment: Belia Reid WPtel: [address] [place], [place] [phone] FOLLOW UP 06/04/2011 Patient Education: Patient Medication Summary Completed 06/04/2011 Visit Plan: Pt. wants "allergy shot" but in fact wants steroid shot. Will take a break from "generic Zyrtec they are getting from [employer]" and try Singulair for 2 weeks. 05/03/2011 Appointment: Iraida Jones WPtel: [address] [place] [address] ACUTE ILLNESS 05/03/2011 Patient Education: Patient Medication Summary Completed 05/03/2011 Visit Plan: Neurontin 400mg q HS for 1we ek then 800mg q HS Decrease requip to 1mg q HS for 2wks then stop Fwup 2mos 04/05/2011 Appointment: Belia Reid WPtel: [address] [place] [address] FOLLOW UP 04/05/2011 Patient Education: Patient Medication Summary Completed 04/05/2011 Visit Plan: Trial of neurontin in 2wks C ontinue current meds for stomach Pt has procedure with Dr. Ortiz next week for stone removal 03/08/2011 Appointment: Belia Reid WPtel: [address] [place], [place] [address] Hospital Follow Up 03/08/2011 Patient Education: Patient Medication Summary Completed 03/08/2011 Appointment: Belia Reid WPtel: [address] [place], [place] [address] FOLLOW UP 02/19/2011 Visit Plan: reports increased [...] with Flagyl 01/24/2011 Appointment: Iraida Jones WPtel: [address] [place] [address] ACUTE ILLNESS 01/24/2011 Patient Education: Patient Medication Summary Completed 01/24/2011 Appointment: Belia Reid WPtel: [address] [place] [address] FOLLOW UP 01/02/2011 Patient Education: Patient Medication Summary Completed 01/02/2011 Appointment: Belia Reid WPtel: [address] [place] [address] FOLLOW UP 12/12/2010 Appointment: Belia Reid WPtel: [address] [place] [address] ACUTE ILLNESS 12/07/2010 Patient Education: Patient Medication Summary Completed 12/07/2010 Visit Plan: Increase Buspar to 10mg po B ID 11/16/2010 Appointment: Belia Reid WPtel: [address] [place] [address] FOLLOW UP 11/16/2010 Patient Education: Patient Medication Summary Completed 11/16/2010 Appointment: Iraida Jones WPtel: [address] [place] [address] ER Follow UP 11/02/2010 Patient Education: Patient Medication Summary Completed 11/02/2010 Visit Plan: Depo-Medrol/Kenalog given fo r allergies Add BuSpar for anxiety Oxycodone one p.o. q.i.d. for number 120 refilled 10/18/2010 Appointment: Belia Reid WPtel: [address] [place] [address] FOLLOW UP 10/18/2010 Patient Education: Patient Medication Summary Completed 10/18/2010 Visit Plan: Continue current meds Discus sed epidurals for back vs PT--will proceed with epidurals to thoracolumbar region to see if helps with pain 09/19/2010 Appointment: Belia Reidtel: [address] [place], [place] [phone] FOLLOW UP 09/19/2010 Patient Education: Patient Medication Summary Completed 09/19/2010 Visit Plan: DC MS contin Check CT scan t horacic spine Fwup pending above results 09/06/2010 Appointment: Belia Reid WPtel: [address] [place], [place] [phone] FOLLOW UP 09/06/2010 Patient Education: Patient Medication Summary Completed 09/06/2010 Visit Plan: Continue current meds Restar t MS contin 15mg po BID and use oxycodone prn Use daily senokot-s 2 po BID 08/10/2010 Appointment: Belia Reid WPtel: [address] [place] [address] FOLLOW UP 08/10/2010 Patient Education: Patient Medication Summary Completed 08/10/2010 Visit Plan: Depomedrol/Kenalog given Pt sees ENT later this month Cont current meds Mammo scheduled 05/11/2010 Appointment: Belia Reid WPtel: [address] [place], [place] [address] FOLLOW UP 05/11/2010 Patient Education: Patient Medication Summary Completed 05/11/2010 Appointment: Belia Reidtel: [address] [place], [place] [phone] UA 05/04/2010 Patient Education: Patient Medication Summary Completed 05/04/2010 Visit Plan: Pt sent to lab for UA 04/28/2010 Appointment: Belia Reidtel: [address] [place], [place] [phone] UA 04/28/2010 Patient Education: Patient Medication Summary Completed 04/28/2010 Visit Plan: Check CT angiogram of chest Restart Advair Use proair prn Cont current meds Fwup with Card as schedulec 04/06/2010 Appointment: Belia Reid WPtel: [address] [place], [place] [phone] [facility] Follow Up 04/06/2010 Patient Education: Patient Medication Summary Completed 04/06/2010 Visit Plan: Paperwork filled out for pow erchair Depomedrol/kenalog given Pt sees ENT in 2wks to assess nasal obstruction problems 02/09/2010 Appointment: Belia Reid WPtel: [address] [place], [place] [phone] ESTABLISHED PATIENT 02/09/2010 Patient Education: Patient Medication Summary Completed 02/09/2010 Visit Plan: Change Elavil to Trazadone 1 50mg q HS Diflucan and nystatin for tinea cruris 01/05/2010 Appointment: Belia Reid WPtel: [address] [place], [place] [phone] FOLLOW UP 01/05/2010 Patient Education: Patient Medication Summary Completed 01/05/2010 Appointment: Belia Reid WPtel: [address] [place], [place] [phone] FOLLOW UP 12/07/2009 Patient Education: Patient Medication Summary Completed 12/07/2009 Appointment: Belia Reid WPtel: [address] [place], [place] [phone] FOLLOW UP 11/22/2009 Visit Plan: Cont current meds and await MRI results from Dr. Meadows's office and his final recommendations Will need to follow-up at later date on deviated septum 11/08/2009 Appointment: Belia Reid WPtel: [address] [place], [place] [phone] FOLLOW UP 11/08/2009 Patient Education: Patient Medication Summary Completed 11/08/2009 Visit Plan: Cont PT/OT See Neurosurgery Cont Tortoise shell brace 10/24/2009 Appointment: Belia Reid WPtel: [address] [place], [place] [phone] FOLLOW UP 10/24/2009 Patient Education: Patient Medication Summary Completed 10/24/2009 Appointment: Belia Reid WPtel: [address] [place], [place] [phone] [place] [address] Follow Up 10/17/2009 Appointment: Belia Reid WPtel: [address] [place], [place] [phone] ACUTE ILLNESS 07/25/2009 Patient Education: Patient Medication Summary Completed 07/25/2009 Appointment: Belia Reid WPtel: [address] [place], [place] [phone] FOLLOW UP 05/26/2009 Patient Education: Patient Medication Summary Completed 05/26/2009 Referral: Chino Balderas WPtel: [facility]66[facility] Referral Initiated Referral: Merry Vale WPtel: [facility] [id number] Vale will review referral and book appointment Completed Referral: Francisco Javier Yoder WPtel: [address] Patient needs EGD insurance will not inc rease a medication unless this procedure results show a need Completed Referral: Francisco Javier Yoder WPtel: [address] [place] [address] [place] Referral Historical Reference Referral: Francisco Javier Yoder WPtel: [address] [id number] [place] Referral Initiated Instructions Comment . 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 Long discussion [...] from "generic Zyrtec they are getting from [employer]" and try Singulair for 2 weeks. . [...] cancerous cells. Clindamycin as last report indicated Gardtamirlla will try Clindamycin as not having success [...]
--- OUTSIDE RECORDS SUMMARY | 2019-06-23 17:55 | XMS REPORT | CCD ---
Author Author Diana Reid D.O. Organization [facility] Address [address] [place] [address] Phone Care Team Providers Care Simulation Educator Name Role Phone Belia Reid D.O., PP Unavailable CCM Unavailable Summary Purpose Interface Exchange Insurance Providers Payer name Policy type / Coverage type Covered green party ID Effective Begin Date Effective End Date [employer] MEDICARE Medicare Part B [id number] 2019 Unknown Family History Family History data not found Social History Social History Element Codes Description Effective Dates Tobacco history SNOMED CT: 606714560 Nonsmoker 09/13/2010 Allergies, Adverse Reactions, Alerts Substance Reaction Codes Entered Date Inactivated Date Status Eggs reaction [id number] 09/15/2015 No Inactive Date Active _ Unknown [...] Fill Instructions Flagyl 500 mg tablet RxNorm: 758376 1 Tablet(s) Oral three time s a day 05/26/2019 06/05/2019 Active diltiazem CD 240 mg capsule,extended release 24 hr RxNorm: 8 70716 1 Capsule(s) Oral QD 05/26/2019 11/21/2019 Active Cipro 250 mg tablet RxNorm: 001664 1 Tablet(s) Oral two times a day 05/26/2019 06/02/2019 Active omeprazole 40 mg capsule,delayed release RxNorm: 413196 1 Capsule(s) Oral two times a day 05/26/2019 11/21/2019 Active hydroxyzine HCl 25 mg tablet RxNorm: 939428 1 Tablet(s) Oral QPM for itching/aniety 05/21/2019 06/27/2019 Active metoprolol tartrate 25 mg tablet RxNorm: 720602 1 Table t(s) Oral two times a day 05/21/2019 08/19/2019 Active hydroxyzine HCl 25 mg tablet RxNorm: 338943 1 Tablet(s) Oral QPM for itching/aniety 05/13/2019 05/20/2019 Inactive gabapentin 600 mg tablet RxNorm: 722640 1 Tablet(s) Oral QD 020 06/05/2019 Active Singulair 10 mg tablet RxNorm: 097311 1 Tablet(s) Oral QPM 05/06/19 20 05/12/2019 Inactive Valium 5 mg tablet RxNorm: 844175 1 Tablet(s) Oral QPM for stri joao/muscle spasm 04/29/2019 05/29/2019 Active baclofen 10 mg tablet RxNorm: 219184 1 Tablet(s) Oral QPM for s pasm/neck pain 04/24/2019 05/23/2019 Inactive baclofen 10 mg tablet RxNorm: 499994 1 Tablet(s) Oral QPM for s pasm/neck pain 04/24/2019 04/23/2019 Inactive Novolin N NPH U-100 Insulin isophane 100 unit/mL subcu taneous susp RxNorm: 283144 23 Unit(s) Subcutaneous two times a day 04/20/2019 No Stop Date A ctive cyclobenzaprine 5 mg tablet RxNorm: 694702 1 Tablet(s) Oral three times a day as needed 04/16/2019 04/23/2019 Inactive hydroxyzine HCl 25 mg tablet RxNorm: 125448 1 Tablet(s) Oral three times a day for itching/aniety 04/08/2019 05/12/2019 Inactive gabapentin 600 mg tablet RxNorm: 642206 1 Tablet(s) Oral two ti mes a day 04/08/2019 05/05/2019 Inactive gabapentin 600 mg tablet RxNorm: 300234 1 Tablet(s) Oral two ti mes a day 04/08/2019 04/07/2019 Inactive Novolin N NPH U-100 Insulin isophane 100 unit/mL subcu taneous susp RxNorm: 141777 10 Unit(s) Subcutaneous two times a day 03/03/2019 04/19/2019 I nactive gabapentin 300 mg capsule RxNorm: 422701 1 Capsule(s) O ral every night at bedtime for neuropathy 02/26/2019 04/07/2019 Inactive gabapentin 300 mg capsule RxNorm: 136591 1 Capsule(s) O ral every night at bedtime for neuropathy 02/20/2019 02/25/2019 Inactive pramipexole 1 mg tablet RxNorm: 381742 1 Tablet(s) Oral QPM FOR RESTLESS LEGS (REPLACES REQUIP) 02/12/2019 02/07/2020 Active buspirone 5 mg tablet RxNorm: 445743 TAKE 1 TABLET THREE TIMES MILDRED Y 02/12/2019 05/12/2019 Inactive Lexapro 10 mg tablet RxNorm: 232228 TAKE 1 TABLET EVERY DAY FOR MOO D 01/31/2019 No Stop Date Active Ativan 0.5 mg tablet RxNorm: 996456 TAKE 1 TABLET BY MO UTH THREE TIMES DAILY NEEDED FOR ANXIETY 01/26/2019 04/28/2019 Inactive Ativan 0.5 mg tablet RxNorm: 555203 TAKE 1 TABLET BY MO UTH THREE TIMES DAILY NEEDED FOR ANXIETY 01/05/2019 01/05/2019 Inactive Levaquin 500 mg tablet RxNorm: 989063 1 Tablet(s) Oral QD 12/25/2018 12/24/2018 Inactive Levaquin 500 mg tablet RxNorm: 717464 1 Tablet(s) Oral QD 12/25/2018 01/04/2019 Inactive baclofen 10 mg tablet RxNorm: 410928 1 Tablet(s) Oral three maico es a day 11/20/2018 01/19/2019 Inactive Ativan 0.5 mg tablet RxNorm: 048092 TAKE 1 TABLET BY MO UT THREE TIMES DAILY NEEDED FOR ANXIETY 11/20/2018 01/04/2019 Inactive gabapentin 300 mg capsule RxNorm: 966177 1 Capsule(s) O ral every night at bedtime for neuropathy 11/20/2018 12/20/2018 Inactive Lexapro 10 mg tablet RxNorm: 821819 1 Tablet(s) PO QD for mood 07/201801/30/2019 Inactive Zithromax Z-Lj 250 mg tablet RxNorm: 903069 Tablet(s) PO take as directed 11/04/2018 11/19/2018 Inactive Insulin Syringe 1 mL 29 gauge x 1/2" RxNorm: 2 s yringes daily with insulin Dx: E11.65 10/08/2018 No Stop Date Active gabapentin 300 mg capsule RxNorm: 568967 1 Capsule(s) PO QHS fo r neuropathy 09/18/2018 10/17/2018 Inactive cyclobenzaprine 5 mg tablet RxNorm: 744104 1 Tablet(s) PO TID a s needed 09/09/2018 09/08/2018 Inactive cyclobenzaprine 5 mg tablet RxNorm: 022637 1 Tablet(s) PO TID a s needed 09/09/2018 10/08/2018 Inactive prednisone 20 mg tablet RxNorm: 975184 1 Tablet(s) PO QD 09/08/2018 0 09/12/2018 Inactive Lantus Solostar U-100 Insulin 100 unit/mL (3 mL) subcu taneous pen RxNorm: 325020 55 Unit(s) SQ QAM 08/28/2018 11/03/2018 Inactive hydroxyzine HCl 25 mg tablet RxNorm: 934025 1 Tablet(s) PO QHS for itching 08/20/2018 05/12/2019 Inactive Lexapro 10 mg tablet RxNorm: 537519 1 Tablet(s) PO QD for mood 08/0210/18/2018 Inactive sumatriptan 100 mg tablet RxNorm: 734299 1 Tablet(s) PO at headache onset. May repeat 1 in two hours if headache remains. Max of 2 per 24 hours 04/02/2018 05/20/2018 Inactive Diflucan 150 mg tablet RxNorm: 051716 1 Tablet(s) PO QD 03/18/2018 Inactive Diflucan 150 mg tablet RxNorm: 762235 1 Tablet(s) PO QD 03/18/2018 Inactive Flagyl 500 mg tablet RxNorm: 420845 1 Tablet(s) PO TID 03/17/2018 Inactive Levaquin 500 mg tablet RxNorm: 162040 1 Tablet(s) PO QD 03/17/2018 Inactive Levaquin 500 mg tablet RxNorm: 369229 1 Tablet(s) PO QD 03/17/2018 Inactive Flagyl 500 mg tablet RxNorm: 810840 1 Tablet(s) PO TID 03/17/2018 Inactive ketoconazole 200 mg tablet RxNorm: 884452 1 Tablet(s) PO QD 019 03/19/2018 Inactive Celebrex 200 mg capsule RxNorm: 194455 1 Capsule(s) PO BID 02/06/20 18 05/20/2018 Inactive tramadol 50 mg tablet RxNorm: 397157 1 Tablet(s) PO TID as needed 1 04/08/2017 05/20/2018 Inactive gabapentin 300 mg capsule RxNorm: 808452 1 Capsule(s) PO BID 201705/20/2018 Inactive Diflucan 150 mg tablet RxNorm: 496091 1 Tablet(s) PO QD 01/20/2018 Inactive pramipexole 1 mg tablet RxNorm: 268908 1 Tablet(s) PO Q PM FOR RESTLESS LEGS (REPLACES REQUIP) 01/08/2018 02/11/2019 Inactive cyclobenzaprine 10 mg tablet RxNorm: 277572 1 Tablet(s) PO TID as needed for muscle spasm 12/17/2017 05/20/2018 Inactive pramipexole 1 mg tablet RxNorm: 499004 TAKE 1 TABLET BY MOUTH ONCE DAILY IN THE EVENING FOR RESTLESS LEGS (REPLACES REQUIP) 12/04/2017 01/05/2018 Inac tive Amaryl 4 mg tablet RxNorm: 647677 1 Tablet(s) PO BID replaces 2mg 0 11/05/2017 12/16/2017 Inactive Singulair 10 mg tablet RxNorm: 089636 1 Tablet(s) PO QHS for al lergies/lungs 10/30/2017 12/16/2017 Inactive Diflucan 100 mg tablet RxNorm: 455333 1 Tablet(s) PO QD 10/23/2017 Inactive Ativan 0.5 mg tablet RxNorm: 887668 TAKE 1 TABLET BY MOUTH THRE E TIMES DAILY 08/30/2017 11/20/2018 Inactive buspirone 5 mg tablet RxNorm: 596288 1 Tablet(s) PO TID 07/11/2017 Inactive propranolol 60 mg tablet RxNorm: 245394 1 Tablet(s) PO BID repl aces 40mg dose 06/26/2017 12/16/2017 Inactive Amaryl 4 mg tablet RxNorm: 866335 1 Tablet(s) PO BID replaces 2mg 0 06/12/2017 11/05/2017 Inactive omeprazole 40 mg capsule,delayed release RxNorm: 447318 1 Capsule(s) PO BID TAKE ONE CAPSULE BY MOUTH TWICE DAILY 05/30/2017 11/25/2017 Inactive pramipexole 1 mg tablet RxNorm: 523030 1 Tablet(s) PO Q PM for restless legs--replaces requip 05/30/2017 11/25/2017 Inactive amitriptyline 50 mg tablet RxNorm: 913700 1 Tablet(s) PO QHS 201709/16/2017 Inactive Diflucan 100 mg tablet RxNorm: 724717 1 Tablet(s) PO BID 05/07/2017 0 05/20/2017 Inactive nystatin (bulk) 100 million unit powder RxNorm: Application TO P BID 05/07/2017 05/20/2018 Inactive cholestyramine (with sugar) 4 gram oral powder RxNorm: 042325 1 Unit Dose PO QD 05/07/2017 01/20/2018 Inactive Ativan 0.5 mg tablet RxNorm: 329735 TAKE ONE TABLET BY MOUTH TH REE TIMES DAILY 05/01/2017 09/02/2017 Inactive Trulicity 1.5 mg/0.5 mL subcutaneous pen injector RxNorm: 15 81026 1 Unit Dose SQ WEEKLY 02/22/2017 03/23/2017 Inactive doxycycline hyclate 100 mg capsule RxNorm: 6828236 1 Capsule(s) PO BID 01/23/2017 02/05/2017 Inactive Amaryl 4 mg tablet RxNorm: 122234 1 Tablet(s) PO BID replaces 2mg 1 03/25/2016 05/22/2017 Inactive magnesium oxide 400 mg capsule RxNorm: 014976 1 Capsule(s) PO QD 07/18/2017 Inactive Ativan 0.5 mg tablet RxNorm: 540718 TAKE ONE TABLET BY MOUTH TH REE TIMES DAILY 01/17/2017 05/01/2017 Inactive Amaryl 2 mg tablet RxNorm: 081773 1 Tablet(s) PO BID 12/27/201601/22 Inactive Amaryl 2 mg tablet RxNorm: 740234 1 Tablet(s) PO BID 12/26/201612/26 Inactive Ativan 0.5 mg tablet RxNorm: 002241 TAKE ONE TABLET BY MOUTH TH REE TIMES DAILY 12/05/2016 01/18/2017 Inactive pramipexole 1 mg tablet RxNorm: 488883 1 Tablet(s) PO Q PM for restless legs--replaces requip 11/26/2016 05/30/2017 Inactive Mobic 15 mg tablet RxNorm: 321919 1 Tablet(s) PO QD 10/08/20162016 Inactive cyclobenzaprine 5 mg tablet RxNorm: 475196 1/2- 1 Tablet(s) PO TID 10/08/2016 10/17/2016 Inactive Ativan 0.5 mg tablet RxNorm: 862255 1 Tablet(s) PO TID 09/20/201607/2016 Inactive amitriptyline 50 mg tablet RxNorm: 523263 1 Tablet(s) PO QHS 201605/30/2017 Inactive propranolol 60 mg tablet RxNorm: 080807 1 Tablet(s) PO BID repl aces 40mg dose 09/19/2016 06/26/2017 Inactive Ativan 0.5 mg tablet RxNorm: 549378 1 Tablet(s) PO TID 08/20/2016 Inactive omeprazole 40 mg capsule,delayed release RxNorm: 879025 1 Capsule(s) PO BID TAKE ONE CAPSULE BY MOUTH TWICE DAILY 08/20/2016 05/30/2017 Inactive amitriptyline 50 mg tablet RxNorm: 552353 1 Tablet(s) PO QHS 201609/18/2016 Inactive pramipexole 1 mg tablet RxNorm: 797382 1 Tablet(s) PO Q PM for restless legs--replaces requip 07/23/2016 11/25/2016 Inactive Amaryl 2 mg tablet RxNorm: 672436 1 Tablet(s) PO BID 07/23/201612/27 Inactive propranolol 40 mg tablet RxNorm: 482005 1 Tablet(s) PO BID 07/13/19 17 09/18/2016 Inactive Ativan 0.5 mg tablet RxNorm: 090879 1 Tablet(s) PO QID 06/19/2016 Inactive Amaryl 2 mg tablet RxNorm: 499960 1 Tablet(s) PO BID 06/19/201607/22 Inactive Ativan 0.5 mg tablet RxNorm: 401036 1 Tablet(s) PO QID 06/19/2016 Inactive buspirone 5 mg tablet RxNorm: 256228 1 Tablet(s) PO TID 06/19/2016 Inactive Ativan 0.5 mg tablet RxNorm: 377878 1 Tablet(s) PO BID 05/24/2016 Inactive buspirone 5 mg tablet RxNorm: 959275 1 Tablet(s) PO TID 05/23/2016 Inactive Macrobid 100 mg capsule RxNorm: 065381 1 Capsule(s) PO QOD 05/03/1910/07/2016 Inactive pramipexole 1 mg tablet RxNorm: 879657 Tablet(s) 1 Tabl et(s) PO QPM for restless legs--replaces requip 04/26/2016 06/24/2016 Inactive propranolol 40 mg tablet RxNorm: 815384 TAKE ONE TABLET BY MOUT H TWICE DAILY 04/26/2016 06/24/2016 Inactive Detrol LA 4 mg capsule,extended release RxNorm: 974779 1 Capsul e(s) PO QHS 04/03/2016 05/02/2016 Inactive prednisone 20 mg tablet RxNorm: 676254 1 Tablet(s) PO QD 02/29/2016 0 03/04/2016 Inactive Actos 30 mg tablet RxNorm: 304850 TAKE ONE TABLET BY MOUTH ONCE DAILY 02/27/2016 12/19/2016 Inactive clindamycin 300 mg capsule RxNorm: 586879 1 Capsule(s) PO TID 02/0102/08/2016 Inactive Flagyl 500 mg tablet RxNorm: 396504 1 Tablet(s) PO BID 02/02/201609/2015 Inactive omeprazole 40 mg capsule,delayed release RxNorm: 436763 TAKE ONE CAPSULE BY MOUTH TWICE DAILY 01/15/2016 07/12/2016 Inactive gabapentin 300 mg capsule RxNorm: 351048 1 Capsule(s) PO QAM an d 2 po q HS 01/05/2016 06/18/2016 Inactive gabapentin 300 mg capsule RxNorm: 929473 1 Capsule(s) P O BID 1 Capsule(s) PO QHS 12/05/2015 01/04/2016 Inactive cyclobenzaprine 10 mg tablet RxNorm: 585301 1 Tablet(s) PO TID for spasm as needed for muscle spasm 12/05/2015 06/18/2016 Inactive ciprofloxacin 250 mg tablet RxNorm: 879600 1 Tablet(s) PO BID 12/0412/14/2015 Inactive pramipexole 1 mg tablet RxNorm: 663270 Tablet(s) 1 Tabl et(s) PO QPM for restless legs--replaces requip 11/07/2015 11/26/2016 Inactive Januvia 100 mg tablet RxNorm: 064711 1 Tablet(s) PO QD 10/26/201504/2015 Inactive propranolol 40 mg tablet RxNorm: 748447 TAKE ONE TABLET BY MOUT H TWICE DAILY 10/25/2015 04/21/2016 Inactive gabapentin 300 mg capsule RxNorm: 823259 1 Capsule(s) PO QHS 201512/04/2015 Inactive Cipro 500 mg tablet RxNorm: 648480 1 Tablet(s) PO BID 10/05/201511/2015 Inactive pramipexole 1 mg tablet RxNorm: 874807 Tablet(s) 1 Tabl et(s) PO QPM for restless legs--replaces requip 10/04/2015 11/02/2015 Inactive propranolol 40 mg tablet RxNorm: 207646 TAKE ONE TABLET BY MOUT H TWICE DAILY 09/26/2015 10/24/2015 Inactive Amaryl 2 mg tablet RxNorm: 597494 1 Tablet(s) PO QD 09/15/20152016 Inactive gabapentin 300 mg capsule RxNorm: 190193 1 Capsule(s) PO QHS 201510/14/2015 Inactive buspirone 5 mg tablet RxNorm: 358284 1 Tablet(s) PO TID 09/15/2015 Inactive pramipexole 1 mg tablet RxNorm: 841713 Tablet(s) 1 Tabl et(s) PO QPM for restless legs--replaces requip 09/08/2015 10/03/2015 Inactive pramipexole 1 mg tablet RxNorm: 655532 1 Tablet(s) PO Q PM for restless legs--replaces requip 08/08/2015 09/08/2015 Inactive Amaryl 2 mg tablet RxNorm: 813026 1 Tablet(s) PO QD 07/07/20152015 Inactive pramipexole 1 mg tablet RxNorm: 658527 1 Tablet(s) PO Q PM for restless legs--replaces requip 07/05/2015 08/03/2015 Inactive ropinirole 2 mg tablet RxNorm: 735789 TAKE ONE TABLET BY MOUTH TWICE DAILY 05/09/2015 09/14/2015 Inactive Diflucan 100 mg tablet RxNorm: 881167 1 Tablet(s) PO QD 03/30/2015 Inactive propranolol 40 mg tablet RxNorm: 748807 1 Tablet(s) PO BID 02/24/2008/21/2015 Inactive [SAVINGS FOR UNINSURED PATIE NTS -- BIN:614104, PCN: ASPROD1, Group: AME08, ID# [id number], Process claim through [employer], for questions: . THIS IS NOT INSURANCE.] Flagyl 500 mg tablet RxNorm: 189192 1 Tablet(s) PO BID 02/03/201502/2015 Inactive Cipro 500 mg tablet RxNorm: 500308 1 Tablet(s) PO BID 02/03/201502/01 Inactive Carafate 1 gram tablet RxNorm: 015164 1 Tablet(s) PO QID make i nto slurry 02/03/2015 09/14/2015 Inactive ondansetron HCl 4 mg tablet RxNorm: 823156 1 Tablet(s) PO Q4H as needed for nausea 12/29/2014 01/04/2016 Inactive Diflucan 100 mg tablet RxNorm: 573203 1 Tablet(s) PO QD 12/29/2014 Inactive Keflex 500 mg capsule RxNorm: 553201 1 Capsule(s) PO TID 12/29/2014 1 03/09/2014 Inactive omeprazole 40 mg capsule,delayed release RxNorm: 343479 1 Capsu le(s) PO BID 12/27/2014 12/21/2015 Inactive [SAVINGS FOR UNINSUR ED PATIENTS -- BIN:970552, PCN: ASPROD1, Group: AME08, ID# [id number], Process claim through [employer], for questions: . THIS IS NOT INSURANCE.] ropinirole 2 mg tablet RxNorm: 040557 1 Tablet(s) PO BID 09/29/2014 0 03/27/2015 Inactive [SAVINGS FOR UNINSURED PATIENTS -- BIN:0 14375, PCN: ASPROD1, Group: AME08, ID# [id number], Process claim through [employer], for questions: . THIS IS NOT INSURANCE.] buspirone 5 mg tablet RxNorm: 632416 1 Tablet(s) PO TID 09/17/2014 Inactive ropinirole 2 mg tablet RxNorm: 494785 1 Tablet(s) PO BID 09/02/2014 0 09/28/2014 Inactive [SAVINGS FOR UNINSURED PATIENTS -- BIN:0 72282, PCN: ASPROD1, Group: AME08, ID# [id number], Process claim through [employer], for questions: . THIS IS NOT INSURANCE.] Zyrtec 10 mg tablet RxNorm: 7413441 1 Tablet(s) PO QD 09/02/201412/02 Inactive propranolol 40 mg tablet RxNorm: 985580 1 Tablet(s) PO BID 07/21/19 15 02/23/2015 Inactive [SAVINGS FOR UNINSURED PATIE NTS -- BIN:937626, PCN: ASPROD1, Group: AME08, ID# [id number], Process claim through [employer], for questions: . THIS IS NOT INSURANCE.] ropinirole 2 mg tablet RxNorm: 407899 1 Tablet(s) PO QHS 05/14/2014 0 09/01/2014 Inactive [SAVINGS FOR UNINSURED PATIENTS -- BIN:0 34883, PCN: ASPROD1, Group: AME08, ID# [id number], Process claim through [employer], for questions: . THIS IS NOT INSURANCE.] cyclobenzaprine 10 mg tablet RxNorm: 432479 1 Tablet(s) PO QHS for spasm 04/06/2014 09/01/2014 Inactive ipratropium-albuterol 0.5 mg-3 mg(2.5 mg base)/3 mL ne bulization soln RxNorm: 5342953 1 Unit Dose INH Q4H 03/16/2014 No Stop Date Active [SAVINGS FOR UNINSURED PATIENTS -- BIN:885067, PCN: ASPROD1, Group: AME08, ID# [id number], Process claim through [employer], for questions: . THIS IS NOT INSURANCE.] prednisone 20 mg tablet RxNorm: 488972 1 Tablet(s) PO BID 03/09/2014 03/15/2014 Inactive [SAVINGS FOR UNINSURED PATIENTS -- BIN:0 84827, PCN: ASPROD1, Group: AME08, ID# [id number], Process claim through [employer], for questions: . THIS IS NOT INSURANCE.] ipratropium-albuterol 0.5 mg-3 mg(2.5 mg base)/3 mL ne bulization soln RxNorm: 6259300 1 Unit Dose INH Q4H 03/09/2014 03/15/2014 Inactive [SAVINGS FOR UNINSURED PATIENTS -- BIN:465384, PCN: ASPROD1, Group: AME08, ID# [id number], Process claim through [employer], for questions: . THIS IS NOT INSURANCE.] Levaquin 500 mg tablet RxNorm: 708126 1 Tablet(s) PO QD 03/09/2014 Inactive [SAVINGS FOR UNINSURED PATIENTS -- BIN:0 00933, PCN: ASPROD1, Group: AME08, ID# [id number], Process claim through [employer], for questions: . THIS IS NOT INSURANCE.] Carafate 1 gram tablet RxNorm: 285422 1 Tablet(s) PO AC & HS ma ke into slurry 02/09/2014 09/01/2014 Inactive [SAVINGS FOR UNINSUR ED PATIENTS -- BIN:140568, PCN: ASPROD1, Group: AME08, ID# [id number], Process claim through [employer], for questions: . THIS IS NOT INSURANCE.] Fioricet 50 mg-300 mg-40 mg capsule RxNorm: 6118782 1-2 Capsule(s) PO Q4H as needed for headache --max of 6 a day 02/09/2014 09/01/2014 Inactive [SAVINGS FOR UNINSURED PATIENTS -- BIN:562475, PCN: ASPROD1, Group: AME08, ID# [id number], Process claim through [employer], for questions: . THIS IS NOT INSURANCE.] propranolol 40 mg tablet RxNorm: 713279 1 Tablet(s) PO BID 12/08/19 14 06/04/2014 Inactive [SAVINGS FOR UNINSURED PATIE NTS -- BIN:005138, PCN: ASPROD1, Group: AME08, ID# [id number], Process claim through [employer], for questions: . THIS IS NOT INSURANCE.] buspirone 5 mg tablet RxNorm: 356479 1 Tablet(s) PO TID 12/02/2013 Inactive omeprazole 40 mg capsule,delayed release RxNorm: 585849 1 Capsu le(s) PO BID 11/25/2013 11/19/2014 Inactive [SAVINGS FOR UNINSUR ED PATIENTS -- BIN:617693, PCN: ASPROD1, Group: AME08, ID# [id number], Process claim through [employer], for questions: . THIS IS NOT INSURANCE.] ropinirole 2 mg tablet RxNorm: 853103 1 Tablet(s) PO QHS 11/10/2013 0 05/08/2014 Inactive [SAVINGS FOR UNINSURED PATIENTS -- BIN:0 78327, PCN: ASPROD1, Group: AME08, ID# [id number], Process claim through [employer], for questions: . THIS IS NOT INSURANCE.] Cipro 500 mg tablet RxNorm: 807881 1 Tablet(s) PO BID 10/21/201312/03 Inactive [SAVINGS FOR UNINSURED PATIENTS -- BIN:0 94119, PCN: ASPROD1, Group: AME08, ID# [id number], Process claim through [employer], for questions: . THIS IS NOT INSURANCE.] hydroxyzine HCl 25 mg tablet RxNorm: 860765 1 Tablet(s) PO Q4-6 H as needed 10/05/2013 01/04/2016 Inactive [SAVINGS FOR UNINSUR ED PATIENTS -- BIN:180666, PCN: ASPROD1, Group: AME08, ID# [id number], Process claim through [employer], for questions: . THIS IS NOT INSURANCE.] triamcinolone acetonide 0.1 % topical cream RxNorm: 6317599 Appl ication TOP BID 10/05/2013 09/01/2014 Inactive [SAVINGS FOR UNINSUR ED PATIENTS -- BIN:208875, PCN: ASPROD1, Group: AME08, ID# [id number], Process claim through [employer], for questions: . THIS IS NOT INSURANCE.] albuterol sulfate HFA 90 mcg/actuation aerosol inhaler RxNor m: 7173358 2 Puff(s) INH Q4H as needed for cough 10/01/2013 12/22/2013 Inactive [MAKSIM INGS FOR UNINSURED PATIENTS -- BIN:036457, PCN: ASPROD1, Group: AME08, ID# [id number], Process claim through [employer], for questions: . THIS IS NOT INSURANCE.] propranolol 40 mg tablet RxNorm: 843289 1 Tablet(s) PO BID 09/02/19 14 11/29/2013 Inactive [SAVINGS FOR UNINSURED PATIE NTS -- BIN:513920, PCN: ASPROD1, Group: AME08, ID# [id number], Process claim through [employer], for questions: . THIS IS NOT INSURANCE.] propranolol 40 mg tablet RxNorm: 440996 1 Tablet(s) PO BID 08/05/19 14 08/31/2013 Inactive [SAVINGS FOR UNINSURED PATIE NTS -- BIN:378569, PCN: ASPROD1, Group: AME08, ID# [id number], Process claim through [employer], for questions: . THIS IS NOT INSURANCE.] Toprol XL 50 mg tablet,extended release RxNorm: 789053 1 Tablet (s) PO QHS 07/23/2013 08/03/2013 Inactive Macrobid 100 mg capsule RxNorm: 700510 1 Capsule(s) PO BID 07/04/19 14 07/09/2013 Inactive Toprol XL 50 mg tablet,extended release RxNorm: 973849 1 Tablet (s) PO QHS 05/28/2013 06/26/2013 Inactive ciprofloxacin 500 mg tablet RxNorm: 541836 1 Tablet(s) PO BID 05/2706/02/2013 Inactive Bystolic 5 mg tablet RxNorm: 522274 1 Tablet(s) PO QD 05/27/201305/03 Inactive ropinirole 2 mg tablet RxNorm: 904516 1 Tablet(s) PO QHS 04/22/2013 0 11/09/2013 Inactive Cipro 250 mg tablet RxNorm: 597020 1 Tablet(s) PO BID 04/06/201311/2013 Inactive ropinirole 2 mg tablet RxNorm: 355570 1 Tablet(s) PO QHS 02/17/2013 0 04/21/2013 Inactive Amaryl 2 mg tablet RxNorm: 869879 1 Tablet(s) PO QAM 11/11/201211/10 Inactive Amaryl 2 mg tablet RxNorm: 647556 1 Tablet(s) PO QAM 11/11/201204/05 Inactive omeprazole 40 mg capsule,delayed release RxNorm: 955986 1 Capsu le(s) PO BID 08/14/2012 08/08/2013 Inactive Bystolic 5 mg tablet RxNorm: 574264 1 Tablet(s) PO QD 08/14/201205/03 Inactive propranolol 60 mg tablet RxNorm: 627041 Tablet(s) PO TAKE 1 TAB LET TWICE DAILY 08/01/2012 09/01/2012 Inactive Bystolic 5 mg tablet RxNorm: 737945 1 Tablet(s) PO QD 07/21/201207/02 Inactive Bystolic 5 mg tablet RxNorm: 275062 1 Tablet(s) PO QD 07/21/201207/03 Inactive Prilosec 40 mg capsule,delayed release RxNorm: 738336 1 Capsule (s) PO BID 06/24/2012 07/21/2012 Inactive buspirone 10 mg tablet RxNorm: 975820 1 Tablet(s) PO TID 05/08/2012 0 05/23/2016 Inactive Valium 10 mg tablet RxNorm: 494162 1 Tablet(s) PO BID 04/02/201207/03 Inactive Endocet 10 mg-325 mg tablet RxNorm: 2045246 1 Tablet(s) PO QID 03/0607/21/2012 Inactive as needed for severe pain Valium 10 mg tablet RxNorm: 000667 1 Tablet(s) PO BID 02/27/2012 No S top Date Active Endocet 10 mg-325 mg tablet RxNorm: 6911567 1 Tablet(s) PO QID 02/0203/27/2012 Inactive as needed for severe pain Endocet 10 mg-325 mg tablet RxNorm: 6808012 1 Tablet(s) PO QID 01/0302/26/2012 Inactive as needed for severe pain Valium 10 mg tablet RxNorm: 308418 1 Tablet(s) PO BID 01/29/2012 No S top Date Active Protonix 40 mg tablet,delayed release RxNorm: 314150 1 Tablet(s ) PO QD 01/28/2012 07/21/2012 Inactive metformin ER 500 mg tablet,extended release 24 hr RxNorm: 86 0977 1 Tablet(s) PO QD 12/26/2011 07/20/2012 Inactive Trazadone 150 mg Tablet RxNorm: 1 Tablet(s) PO QHS prn sleep 1 04/23/2012 Inactive Endocet 10 mg-325 mg tablet RxNorm: 0830359 1 Tablet(s) PO QID 12/0301/24/2012 Inactive as needed for severe pain Nexium 40 mg capsule,delayed release RxNorm: 928605 1 Capsule(s ) PO QD 12/26/2011 01/27/2012 Inactive Symbicort 160 mcg-4.5 mcg/actuation HFA Aerosol Inhaler RxNo rm: 8061441 2 Puff(s) INH BID 12/04/2011 07/21/2012 Inactive Endocet 10 mg-325 mg tablet RxNorm: 3074591 1 Tablet(s) PO QID 11/0312/25/2011 Inactive as needed for severe pain metformin ER 500 mg tablet,extended release 24 hr RxNorm: 86 0977 1 Tablet(s) PO QD 11/20/2011 12/19/2011 Inactive metformin ER 500 mg tablet,extended release 24 hr RxNorm: 86 0977 1 Tablet(s) PO QD 11/20/2011 11/19/2011 Inactive amitriptyline 100 mg tablet RxNorm: 985328 Tablet(s) PO QHS 1 a nd / tabs QHS 11/12/2011 11/13/2011 Inactive Valium 10 mg tablet RxNorm: 814954 1 Tablet(s) PO BID 11/09/2011 No S top Date Active Endocet 10 mg-325 mg tablet RxNorm: 2831813 1 Tablet(s) PO QID 10/0211/14/2011 Inactive as needed for severe pain Aricept 10 mg Tab RxNorm: 148275 1 Tablet(s) PO QD 10/05/2011 013 Inactive Valium 10 mg tablet RxNorm: 116050 1 Tablet(s) PO BID 10/05/2011 No S top Date Active Endocet 10 mg-325 mg Tab RxNorm: 0608038 1 Tablet(s) PO QID 012 10/09/2011 Inactive as needed for severe pain Aricept 10 mg Tab RxNorm: 293706 1 Tablet(s) PO QD 08/14/2011 012 Inactive Endocet 10 mg-325 mg Tab RxNorm: 8988713 1 Tablet(s) PO QID 012 08/31/2011 Inactive as needed for severe pain Valium 10 mg Tab RxNorm: 519482 1 Tablet(s) PO BID 08/02/2011 No Stop Date Active propranolol 60 mg tablet RxNorm: 051099 1 Tablet(s) PO BID 07/26/19 12 09/11/2011 Inactive amitriptyline 100 mg tablet RxNorm: 509672 Tablet(s) PO QHS 1 a nd 1/2 tabs QHS 06/20/2011 09/11/2011 Inactive buspirone 10 mg tablet RxNorm: 017264 1 Tablet(s) PO BID 06/18/2011 0 09/15/2011 Inactive propranolol 60 mg Tab RxNorm: 491432 1 Tablet(s) PO BID 06/18/2011 Inactive gabapentin 800 mg Tab RxNorm: 294296 1 Tablet(s) PO BID 06/18/2011 Inactive ropinirole 2 mg tablet RxNorm: 001079 1 Tablet(s) PO QHS 05/29/2011 0 08/26/2011 Inactive trimethoprim 100 mg Tab RxNorm: 346123 1 Tablet(s) PO QHS 05/29/2011 07/21/2012 Inactive Endocet 10 mg-325 mg Tab RxNorm: 7004322 1 Tablet(s) PO QID 012 2011 Inactive as needed for severe pain Valium 10 mg Tab RxNorm: 708659 1 Tablet(s) PO QHS N eed to take med as prescribed. this is a 40 day RX. No early fills. 05/17/2011 05/20/2018 Inactive propranolol 60 mg Tab RxNorm: 916613 1 Tablet(s) PO BID 04/16/2011 Inactive Neurontin 800 mg Tab RxNorm: 835096 1 Tablet(s) PO QHS 04/05/201103/2011 Inactive Endocet 10 mg-325 mg Tab RxNorm: 2298689 1 Tablet(s) PO QID 012 05/02/2011 Inactive as needed for severe pain oxycodone-acetaminophen 10 mg-325 mg tablet RxNorm: 0409162 1 Ta blet(s) PO Q4H 03/28/2011 05/19/2012 Inactive Valium 10 mg Tab RxNorm: 102987 1 Tablet(s) PO QHS 03/28/2011 012 Inactive buspirone 10 mg Tab RxNorm: 944353 1 Tablet(s) PO BID 03/27/201106/02 Inactive propranolol 60 mg Tab RxNorm: 670088 1 Tablet(s) PO BID 03/19/2011 Inactive Klor-Con M20 20 mEq Tab RxNorm: 0098139 1 Tablet(s) PO QD 03/19/2011 07/21/2012 Inactive Aricept 10 mg Tab RxNorm: 428804 1 Tablet(s) PO QD 02/27/2011 012 Inactive propranolol 60 mg Tab RxNorm: 420469 1 Tablet(s) PO BID 02/19/2011 Inactive omeprazole 40 mg capsule,delayed release RxNorm: 154588 1 Capsu le(s) PO BID 01/24/2011 05/23/2011 Inactive clindamycin 300 mg capsule RxNorm: 783924 1 Capsule(s) PO TID 01/2402/02/2011 Inactive propranolol 60 mg Tab RxNorm: 434984 1 Tablet(s) PO BID 01/22/2011 No Stop Date Active nystatin 100,000 unit/g Topical Cream RxNorm: 302750 Applicatio n TOP BID 01/15/2011 01/14/2011 Inactive to rash for 2-4 week s Diflucan 200 mg Tab RxNorm: 477250 1 Tablet(s) PO QD 01/15/201101/28 Inactive buspirone 10 mg Tab RxNorm: 607165 1 Tablet(s) PO BID 01/08/201103/05 Inactive Valium 10 mg Tab RxNorm: 875733 1 Tablet(s) PO QHS 01/05/2011 012 Inactive Diflucan 200 mg Tab RxNorm: 229242 1 Tablet(s) PO QD 01/01/201101/14 Inactive Diflucan 200 mg Tab RxNorm: 426418 1 Tablet(s) PO QD 12/18/201012/31 Inactive Valium 10 mg Tab RxNorm: 409562 1 Tablet(s) PO QHS 12/12/2010 011 Inactive Diflucan 200 mg Tab RxNorm: 342579 1 Tablet(s) PO QD 12/07/201012/18 Inactive Aricept 10 mg Tab RxNorm: 883090 1 Tablet(s) PO QD 11/20/2010 011 Inactive ropinirole 1 mg Tab RxNorm: 828822 1 Tablet(s) PO QHS 11/16/201005/03 Inactive enalapril maleate 5 mg Tab RxNorm: 540181 1 Tablet(s) PO QD 011 05/20/2018 Inactive buspirone 10 mg Tab RxNorm: 435966 1 Tablet(s) PO BID 11/16/201012/02 Inactive Valium 10 mg Tab RxNorm: 359872 1 Tablet(s) PO QHS 11/07/2010 011 Inactive Pyridium 100 mg Tab RxNorm: 2520290 1 Tablet(s) PO TID 11/02/201004/2010 Inactive Macrobid 100 mg Cap RxNorm: 9182991 1 Capsule(s) PO BID 11/02/2010 Inactive buspirone 10 mg Tab RxNorm: 884593 1 Tablet(s) PO QHS 10/18/201005/02 Inactive propranolol 60 mg Tab RxNorm: 292359 1 Tablet(s) PO BID 09/18/2010 Inactive Valium 10 mg Tab RxNorm: 140295 1 Tablet(s) PO QHS 09/05/2010 011 Inactive Aricept 10 mg Tab RxNorm: 030017 1 Tablet(s) PO QD 08/14/2010 011 Inactive Valium 10 mg Tab RxNorm: 779098 1 Tablet(s) PO QHS 06/26/2010 011 Inactive ropinirole 1 mg Tab RxNorm: 016484 1 Tablet(s) PO QHS 06/19/201010/02 Inactive omeprazole 40 mg Cap, delayed release RxNorm: 018146 1 Capsule( s) PO QD 06/07/2010 10/04/2010 Inactive Endocet 10 mg-325 mg Tab RxNorm: 5540427 1 Tablet(s) PO QID as needed for severe pain 06/07/2010 03/07/2011 Inactive Endocet 10 mg-325 mg Tab RxNorm: 8230060 1 Tablet(s) PO QID as needed for severe pain 05/04/2010 06/02/2010 Inactive Valium 10 mg Tab RxNorm: 615247 1 Tablet(s) PO QHS 05/01/2010 02/27/2 011 Inactive propranolol 60 mg Tab RxNorm: 317793 1 Tablet(s) PO BID 04/03/2010 Inactive Valium 10 mg Tab RxNorm: 803736 1 Tablet(s) PO QHS 03/28/2010 011 Inactive omeprazole 40 mg Cap, Delayed Release RxNorm: 588198 1 Capsule( s) PO QD 03/28/2010 06/06/2010 Inactive Endocet 10 mg-325 mg Tab RxNorm: 2783816 1 Tablet(s) PO QID prn ari n 03/27/2010 05/20/2018 Inactive Valium 10 mg Tab RxNorm: 439907 1 Tablet(s) PO QHS 02/20/2010 011 Inactive Diflucan 100 mg Tab RxNorm: 354635 1 Tablet(s) PO BID 01/23/201003/2009 Inactive Diflucan 100 mg Tab RxNorm: 881806 1 Tablet(s) PO BID 01/05/201001/02 Inactive Aricept 10 mg Tab RxNorm: 782980 1 Tablet(s) PO QD 12/01/2009 011 Inactive OxyContin 20 mg 12 hr Tab RxNorm: 6269702 1 Tablet(s) PO BID 200904/05/2010 Inactive oxycodone-acetaminophen 10 mg-325 mg Tab RxNorm: 6324576 1 Table t(s) PO Q4H 11/22/2009 11/26/2009 Inactive Phenergan 25 mg Tab RxNorm: 382256 1 Tablet(s) PO PRN MIGRAINE 11/0303/07/2011 Inactive Demerol 100 mg Tab RxNorm: 146136 1 Tablet(s) PO PRN MIGRAINE 11/2203/07/2011 Inactive Oxycodone-Acetaminophen 10 mg-325 mg Tab RxNorm: 3220345 1 Table t(s) PO Q4H 10/11/2009 10/15/2009 Inactive Percocet 10 mg-325 mg Tab RxNorm: 8575748 1 Tablet(s) PO Q4H 200910/24/2009 Inactive propranolol 60 mg Tab RxNorm: 019755 1 Tablet(s) PO BID 08/29/2009 Inactive Valium 10 mg Tab RxNorm: 076825 1 Tablet(s) PO QHS 08/16/2009 010 Inactive Keflex 500 mg Cap RxNorm: 401542 1 Capsule(s) PO BID 07/25/200907/31 Inactive Hydroxyzine 25 mg Tab RxNorm: 095535 1 Tablet(s) PO TID 07/25/2009 Inactive Prednisone 20 mg Tab RxNorm: 475679 1 Tablet(s) PO BID 07/25/2009 Inactive Demerol 100 mg Tab RxNorm: 108445 1 Tablet(s) PO PRN MIGRAINE 07/25 No Stop Date Active Ropinirole 1 mg Tab RxNorm: 243375 1 Tablet(s) PO HS 07/20/200902/14 Inactive Valium 10 mg Tab RxNorm: 570055 1 Tablet(s) PO QHS 07/18/2009 010 Inactive Endocet 10 mg-325 mg Tab RxNorm: 4368622 1 Tablet(s) PO TID 010 07/07/2009 Inactive Demerol 100 mg Tab RxNorm: 505970 1 Tablet(s) PO PRN MIGRAINE 06/08 No Stop Date Active Ropinirole 1 mg Tab RxNorm: 573395 1 Tablet(s) PO HS 05/16/200907/14 Inactive ipratropium-albuterol 0.5 mg-3 mg(2.5 mg base)/3 mL ne bulization soln RxNorm: 4235411 1 Unit Dose INH Q4H as needed No Start Date Active MagOx 400 mg (241.3 mg magnesium) tablet RxNorm: 161296 1 Table t(s) PO BID No Start Date Active Vitamin B12 1000mcg Tablet RxNorm: 1 Tablet(s) PO QD No Start Date Active Vitamin D3 5,000 unit tablet RxNorm: 652824 1 Tablet(s) PO QD No Star t Date Active Tylenol Arthritis Pain 650 mg tablet,extended release RxNorm : 6773417 1 Tablet(s) PO Q4H No Start Date Active Lotrimin AF 2 % topical powder RxNorm: 322201 1 Application TOP BID No Start Date Active enalapril maleate 5 mg Tab RxNorm: 151181 1 Tablet(s) PO QD No Star t Date 07/20/2012 Inactive Demerol 100 mg Tab RxNorm: 643812 Tablet(s) PO PRN MIGRAINE No Star t Date 06/02/2009 Inactive metformin 500 mg tablet RxNorm: 351292 1 Tablet(s) PO QD No Start D ate 04/05/2013 Inactive Breo Ellipta 100 mcg-25 mcg/dose powder for inhalation RxNor m: 5465370 1 Puff(s) INH BID No Start Date 01/04/2016 Inactive Mag-Oxide 400 mg Tab RxNorm: 646986 1 Tablet(s) PO QD No Start Date 0 07/21/2012 Inactive Cipro 500 mg Tab RxNorm: 470220 1 Tablet(s) PO QD No Start Date 04/05 Inactive Ativan 0.5 mg tablet RxNorm: 178444 1 Tablet(s) PO TID as needed No Start Date 05/06/2019 Inactive melatonin 3 mg tablet RxNorm: 292752 2 Tablet(s) PO QHS No Start Da te 08/19/2018 Inactive buspirone 10 mg Tab RxNorm: 075373 1 Tablet(s) PO QD No Start Date Inactive sucralfate 100 mg/mL Oral Susp RxNorm: 325341 2 Teaspoon(s) PO QID No Start Date 07/21/2012 Inactive hydrocodone 5 mg-acetaminophen 325 mg tablet RxNorm: 388802 1 Tablet(s) PO Q4H as needed No Start Date 08/19/2018 Inactive Amaryl 2 mg tablet RxNorm: 158199 1 Tablet(s) PO BID No Start Date Inactive OxyContin 20 mg 12 hr Tab RxNorm: 2538750 1 Tablet(s) PO BID No Sta rt Date 11/27/2009 Inactive propranolol 40 mg tablet RxNorm: 664183 1 Tablet(s) PO QID No Start Date 01/19/2018 Inactive Trazadone 150 mg Tablet RxNorm: 1-2 Tablet(s) PO QHS prn sleep No Start Date 08/09/2010 Inactive propranolol 60 mg Tab RxNorm: 860634 1/2 Tablet(s) PO BID No Start Date 01/21/2011 Inactive insulin NPH and regular human subcutaneous RxNorm: 5349713 subcu taneous No Start Date 11/20/2018 Inactive Ativan 0.5 mg tablet RxNorm: 887712 1 Tablet(s) PO QID No Start Date 06/18/2016 Inactive Vasotec 5 mg Tab RxNorm: 999245 1 Tablet(s) PO BID No Start Date 06/2011 Inactive Toprol XL 50 mg tablet,extended release RxNorm: 546079 1 Tablet (s) PO BID No Start Date 04/05/2013 Inactive Ativan 0.5 mg tablet RxNorm: 216073 1 Tablet(s) PO TID No Start Date 05/25/2016 Inactive Klor-Con M20 20 mEq Tab RxNorm: 1148811 1 Tablet(s) PO QD No Start Date 03/19/2011 Inactive sumatriptan 100 mg tablet RxNorm: 544696 1 Tablet(s) PO at headache onset--repeat in 2hrs if remains No Start Date 07/21/2012 Inactive propranolol 60 mg Tab RxNorm: 551885 1 Tablet(s) PO BID No Start Da te 08/28/2009 Inactive Cholestyramine Light 4 gram Oral Powder RxNorm: 6763392 1 Unit Dose PO QD in water No Start Date 07/21/2012 Inactive nystatin 100,000 unit/g Topical Powder RxNorm: 253067 Applicati on TOP BID No Start Date 07/21/2012 Inactive vitamin D67-ixwat acid sublingual RxNorm: sublingual No Start Date 07/05/2013 Inactive cyclobenzaprine 5 mg tablet RxNorm: 385877 1/2-1 Tablet (s) PO TID as needed for muscle spasm No Start Date 07/18/2017 Inactive tramadol 50 mg tablet RxNorm: 706462 2 Tablet(s) PO TID as need ed for pain No Start Date 09/01/2014 Inactive aspirin 81 mg Tab RxNorm: 164703 1 Tablet(s) PO QOD No Start Date 04/2013 Inactive Vitamin B12 1000mcg Tablet RxNorm: 1 Tablet(s) PO QD No Start Date 07/18/2017 Inactive cholestyramine (with sugar) 4 gram oral powder RxNorm: 19342 3 1 Unit(s) PO QD as needed No Start Date 05/20/2018 Inactive ProAir HFA 90 mcg/Actuation Aerosol Inhaler RxNorm: 378578 2 Puff(s) INH Q4H prn shortness of breath No Start Date 07/21/2012 Inactive pravastatin 10 mg Tab RxNorm: 371914 1 Tablet(s) PO QD No Start Date 07/21/2012 Inactive gabapentin 800 mg Tab RxNorm: 462671 1 Tablet(s) PO BID No Start Da te 06/03/2011 Inactive Endocet 10 mg-325 mg Tab RxNorm: 0019021 1 Tablet(s) PO TID No Star t Date 06/02/2009 Inactive Naproxen 500 mg Tab RxNorm: 463434 1 Tablet(s) PO BID No Start Date 0 04/05/2010 Inactive Valium 10 mg Tab RxNorm: 892725 1 Tablet(s) PO BID No Start Date 07/04 Inactive enalapril maleate 5 mg Tab RxNorm: 732168 1 Tablet(s) PO QD No Star t Date 11/15/2010 Inactive doxepin 10 mg capsule RxNorm: 8590242 2 Capsule(s) PO QHS No Start Date 09/17/2018 Inactive MS Contin 15 mg Tab RxNorm: 634459 1 Tablet(s) PO BID No Start Date 0 09/18/2010 Inactive buspirone 5 mg tablet RxNorm: 646077 1 Tablet(s) PO TID No Start Da te 12/01/2013 Inactive [place] 3 Fish Oil Cap RxNorm: 1 Capsule(s) PO QD No Start Date 07/03 Inactive enalapril maleate 5 mg Tab RxNorm: 121409 1/2 Tablet(s) PO QD No St art Date 03/07/2011 Inactive Lyrica 75 mg capsule RxNorm: 981897 1 Capsule(s) PO QHS No Start Da te 02/08/2014 Inactive Lopressor 100 mg tablet RxNorm: 928632 1 Tablet(s) PO BID No Start Date 06/08/2018 Inactive Lantus Solostar U-100 Insulin 100 unit/mL (3 mL) subcu taneous pen RxNorm: 044551 45 Unit(s) SQ QAM No Start Date 05/20/2018 Inactive aspirin 81 mg tablet RxNorm: 120538 1 Tablet(s) PO QD No Start Date 0 09/14/2015 Inactive diltiazem CD 240 mg capsule,extended release 24 hr RxNorm: 8 78576 1 Capsule(s) PO QD No Start Date 05/25/2019 Inactive insulin NPH isophane U-100 human subcutaneous RxNorm: 907740 beckwith bcutaneous No Start Date 04/20/2019 Inactive sumatriptan 100 mg tablet RxNorm: 969830 1 Tablet(s) PO at headache onset. May repeat 1 in two hours if headache remains. Max of 2 per 24 hours No Start Date 04/01/2018 Inactive gabapentin 300 mg capsule RxNorm: 036720 1 Capsule(s) PO QHS No Sta rt Date 02/04/2018 Inactive Topamax 25 mg Tab RxNorm: 506673 Oral No Start Date 03/07/2011 In active Senokot-S 8.6 mg-50 mg Tab RxNorm: 1007131 1 Tablet(s) PO QD No Sta rt Date 03/07/2011 Inactive metformin ER 500 mg 24 hr tablet,extended release RxNorm: 18 35067 1 Tablet(s) PO QD No Start Date 05/20/2018 Inactive Symbicort 80 mcg-4.5 mcg/actuation HFA Aerosol Inhaler RxNor m: 0347460 2 Puff(s) INH BID No Start Date 04/05/2013 Inactive metoprolol tartrate 25 mg tablet RxNorm: 446901 1 Tablet(s) PO BID No Start Date 05/20/2019 Inactive propranolol 60 mg Tab RxNorm: 452367 1/2 Tablet(s) PO BID No Start Date 07/21/2012 Inactive metformin ER 500 mg 24 hr tablet,extended release RxNorm: 18 75122 2 Tablet(s) PO QD No Start Date 12/16/2017 Inactive Insulin Syringe 1 mL 29 gauge x 1/2" RxNorm: 2 s yringes daily with insulin Dx: E11.65 No Start Date 10/07/2018 Inactive Amitriptyline 75 mg Tab RxNorm: 850032 1 Tablet(s) PO QHS No Start Date 10/23/2009 Inactive donepezil 10 mg Tab RxNorm: 252795 1 Tablet(s) PO QD No Start Date Inactive Lantus Solostar U-100 Insulin 100 unit/mL (3 mL) subcu taneous pen RxNorm: 581385 36 Unit(s) SQ QAM No Start Date 12/24/2017 Inactive Miacalcin 200 unit/Actuation Nasal [place] Aerosol RxNorm: 261 204 1 [place] NASAL QD Alternate nostrils each day No Start Date 04/05/2010 Inactive Amitriptyline 150 mg Tab RxNorm: 614612 1 Tablet(s) PO QHS No Start Date 01/04/2010 Inactive Bystolic 5 mg tablet RxNorm: 345116 1 Tablet(s) PO QD No Start Date 0 08/13/2012 Inactive Aricept 10 mg Tab RxNorm: 706506 1 Tablet(s) PO QD No Start Date 11/03 Inactive Lantus Solostar U-100 Insulin 100 unit/mL (3 mL) subcu taneous pen RxNorm: 916038 50 Unit(s) SQ QAM No Start Date 08/27/2018 Inactive albuterol sulfate 2.5 mg/3 mL (0.083 %) Neb Solution RxNorm: 330561 1 Unit Dose INH QID as needed No Start Date 08/23/2015 Inactive Symbicort 160 mcg-4.5 mcg/actuation HFA Aerosol Inhaler RxNo rm: 7219851 2 Puff(s) INH BID No Start Date 12/03/2011 Inactive Savella 50 mg Tab RxNorm: 871141 1 Tablet(s) PO BID No Start Date 04/2010 Inactive amitriptyline 100 mg Tab RxNorm: 808831 1 1/2 Tablet(s) PO QHS No S tart Date 06/19/2011 Inactive nystatin 100,000 unit/g Topical Cream RxNorm: 672967 Ap plication TOP BID to rash for 2-4 weeks No Start Date 01/14/2011 Inactive Trelegy Ellipta 100 mcg-62.5 mcg-25 mcg powder for inhalatio n RxNorm: 0654124 1 Puff(s) INH QD No Start Date 12/16/2017 Inactive Lyrica 150 mg capsule RxNorm: 978270 1 Capsule(s) PO QHS No Start D ate 12/04/2015 Inactive sennosides 8.6 mg tablet RxNorm: 463696 1 Tablet(s) PO BID No Start Date 09/07/2018 Inactive metformin ER 500 mg tablet,extended release 24 hr RxNorm: 86 0975 1 Tablet(s) PO QD No Start Date 10/22/2017 Inactive Fish Oil 1,000 mg Cap RxNorm: 1 Capsule(s) PO QD No Start Date 06/2011 Inactive Zyrtec 10 mg Tab RxNorm: 6933954 1 Tablet(s) PO QD No Start Date 07/03 Inactive albuterol sulfate HFA 90 mcg/actuation aerosol inhaler RxNor m: 9872604 2 Puff(s) INH Q4H as needed for cough No Start Date 09/30/2013 Inactive trazodone 150 mg tablet RxNorm: 364056 1 Tablet(s) PO QHS No Start Date 07/21/2012 Inactive Spiriva with HandiHaler 18 mcg & inhalation capsules RxNorm: 430640 1 Capsule(s) INH QD No Start Date 04/05/2013 Inactive Coreg 3.125 mg Tab RxNorm: 007222 1 Tablet(s) PO BID No Start Date Inactive Phenergan 25 mg Tab RxNorm: 023161 Tablet(s) PO PRN MIGRAINE No Sta rt Date 11/21/2009 Inactive Vitamin D 50,000 unit Cap RxNorm: 5833784 1 Capsule(s) PO QW No Sta rt Date 03/07/2011 Inactive Januvia 100 mg tablet RxNorm: 950200 1 Tablet(s) PO QD No Start Date 10/25/2015 Inactive Eliquis 5 mg tablet RxNorm: 0110633 1 Tablet(s) PO BID No Start Date 08/19/2018 Inactive Advair Diskus 500 mcg-50 mcg/Dose for Inhalation RxNorm: 609301 1 INH BID No Start Date 07/21/2012 Inactive Vitamin D3 5,000 unit tablet RxNorm: 710092 1 Tablet(s) PO QD No St art Date 07/18/2017 Inactive Amaryl 2 mg tablet RxNorm: 239967 1 Tablet(s) PO QD No Start Date 06/2015 Inactive Actos 30 mg tablet RxNorm: 667236 1 Tablet(s) PO QD No Start Date Inactive promethazine 25 mg tablet RxNorm: 498744 1 Tablet(s) PO Q4H prn N/V No Start Date 07/21/2012 Inactive ProAir HFA 90 mcg/actuation Aerosol Inhaler RxNorm: 825576 2 Puff(s) INH Q4H prn dyspnea No Start Date 07/21/2012 Inactive Dexilant 60 mg Capsule RxNorm: 554489 1 Capsule(s) PO QD No Start D ate 01/27/2012 Inactive Lantus Solostar U-100 Insulin 100 unit/mL (3 mL) subcu taneous pen RxNorm: 986612 38 Unit(s) SQ QAM No Start Date 05/20/2018 Inactive Valium 10 mg Tab RxNorm: 177158 1 Tablet(s) PO QHS AND PRN No Start Date 10/24/2009 Inactive ZOFRAN ODT 8 mg disintegrating tablet RxNorm: 272571 1 Tablet(s ) PO Q6H No Start [...] Date S ervice Location MICROALBUMIN URINE RANDOM 49350 MICRL MG/L 14.9 MG/L Unknown MICROALBUMIN URINE RANDOM 93346 XM.ALB/CRE 6.1 MG/GCR Unknown MICROALBUMIN URINE RANDOM 37302 CREAT MG/D 243 MG/DL Unknown MICROALBUMIN URINE RANDOM 66838 CRE/100 2.43 G/L 03/05 Unknown PROTEIN/CREAT URINE WITH RATIO 52710|51085 PROT R U 14 MG/D L 04/01/2014 Unknown PROTEIN/CREAT URINE WITH RATIO 79234|81763 CREAT R U 254 MG/ DL 04/01/2014 Unknown PROTEIN/CREAT URINE WITH RATIO 17688|06019 XRATIO P/C 55 MG/ G 04/01/2014 Unknown URINALYSIS 61763 PROTEIN UR NEG 04/28/2010 Unknown URINALYSIS 95783 HEMGLBN UR NEG 04/28/2010 Unknown URINALYSIS 48402 GLUCOSE UR NEG 04/28/2010 Unknown URINALYSIS 64379 KETONES UR NEG 04/28/2010 Unknown URINALYSIS 14850 PH U 5.5 04/28/2010 Unknown URINALYSIS 54806 SP GR U 1.025 04/28/2010 Unknown URINALYSIS 58967 BILRUBN UR NEG 04/28/2010 Unknown URINALYSIS 67466 LEUKO UR 2+ 04/28/2010 Unknown URINALYSIS 71939 NITRITE UR NEG 04/28/2010 Unknown MICR CUL? [id number] WBC/HPF 6-10 04/28/2010 Unknown MICR CUL? [id number] RBC/HPF 0-5 04/28/2010 Unknown MICR CUL? [id number] HYAL CAST 16-25 04/28/2010 Unknown MICR CUL? [id number] SP TO YOLIE? NO 04/28/2010 Unknown MICR CUL? [id number] APPEAR UR NORMAL 04/28/2010 Unknown MICR CUL? [id number] SQ EPI/LPF FEW 04/28/2010 Unknown Procedures Procedure Codes Date URINALYSIS NONAUTO W/O SCOPE CPT-4: 53559 04/16/2019 URINE CULTURE/ COLONY COUNT CPT-4: 91228 04/16/2019 CEFTRIAXONE SODIUM INJECTION CPT-4: J0696 04/16/2019 THER/PROPH/DIAG INJ SC/IM CPT-4: 12290 04/16/2019 DRAIN/INJECT JOINT/BURSA CPT-4: 94128 01/22/2019 TRIAMCINOLONE ACET INJ NOS CPT-4: J3301 01/22/2019 DEXAMETHASONE SODIUM PHOS CPT-4: J1100 01/22/2019 URINE CULTURE/ COLONY COUNT CPT-4: 08647 01/07/2019 URINALYSIS NONAUTO W/O SCOPE CPT-4: 96443 01/07/2019 CEFTRIAXONE SODIUM INJECTION CPT-4: J0696 01/07/2019 THER/PROPH/DIAG INJ SC/IM CPT-4: 44825 01/07/2019 FLU VACC PRSV FREE INC ANTIG 65 AND OLDER CPT-4: 63569 12/24/2018 FLU VACC PRSV FREE INC ANTIG 65 AND OLDER CPT-4: 77775 12/24/2018 ADMIN INFLUENZA VIRUS VAC CPT-4: G0008 12/24/2018 THER/PROPH/DIAG INJ SC/IM CPT-4: 67122 11/04/2018 KETOROLAC TROMETHAMINE INJ CPT-4: J1885 11/04/2018 PROMETHAZINE HCL INJECTION CPT-4: J2550 11/04/2018 PPPS, subseq visit CPT-4: G0439 09/18/2018 THER/PROPH/DIAG INJ SC/IM CPT-4: 63829 04/01/2018 KETOROLAC TROMETHAMINE INJ CPT-4: J1885 04/01/2018 PROMETHAZINE HCL INJECTION CPT-4: J2550 04/01/2018 URINE CULTURE/ COLONY COUNT CPT-4: 83688 03/17/2018 URINALYSIS NONAUTO W/O SCOPE CPT-4: 02419 03/17/2018 FLU VACC PRSV FREE INC ANTIG 65 AND OLDER CPT-4: 05579 12/17/2017 PNEUMOCOCCAL VACC 23 RANDALL IM CPT-4: 10493 12/17/2017 ADMIN INFLUENZA VIRUS VAC CPT-4: G0008 12/17/2017 ADMIN PNEUMOCOCCAL VACCINE CPT-4: G0009 12/17/2017 PPPS, subseq visit CPT-4: G0439 09/17/2017 THER/PROPH/DIAG INJ SC/IM CPT-4: 23155 08/26/2017 KETOROLAC TROMETHAMINE INJ CPT-4: J1885 08/26/2017 PROMETHAZINE HCL INJECTION CPT-4: J2550 08/26/2017 URINALYSIS NONAUTO W/O SCOPE CPT-4: 43629 07/19/2017 URINE CULTURE/ COLONY COUNT CPT-4: 75600 07/19/2017 CEFTRIAXONE SODIUM INJECTION CPT-4: J0696 07/19/2017 THER/PROPH/DIAG INJ SC/IM CPT-4: 28768 07/19/2017 THER/PROPH/DIAG INJ SC/IM CPT-4: 04467 07/19/2017 TRIAMCINOLONE ACET INJ NOS CPT-4: J3301 07/19/2017 PRESCRIP TRANSMIT VIA ERX SY CPT-4: G8553 05/07/2017 PRESCRIP TRANSMIT VIA ERX SY CPT-4: G8553 02/22/2017 PRESCRIP TRANSMIT VIA ERX SY CPT-4: G8553 01/23/2017 FLU VACC PRSV FREE INC ANTIG 65 AND OLDER CPT-4: 68892 12/20/2016 PNEUMOCOCCAL VACC 13 RANDALL IM CPT-4: 56300 12/20/2016 ADMIN INFLUENZA VIRUS VAC CPT-4: G0008 12/20/2016 ADMIN PNEUMOCOCCAL VACCINE CPT-4: G0009 12/20/2016 URINALYSIS NONAUTO W/O SCOPE CPT-4: 14262 10/08/2016 URINE CULTURE/ COLONY COUNT CPT-4: 50527 10/08/2016 PRESCRIP TRANSMIT VIA ERX SY CPT-4: G8553 10/08/2016 PRESCRIP TRANSMIT VIA ERX SY CPT-4: G8553 09/19/2016 PRESCRIP TRANSMIT VIA ERX SY CPT-4: G8553 08/20/2016 PRESCRIP TRANSMIT VIA ERX SY CPT-4: G8553 02/29/2016 KETOROLAC TROMETHAMINE INJ CPT-4: J1885 02/02/2016 THER/PROPH/DIAG INJ SC/IM CPT-4: 38284 02/02/2016 PROMETHAZINE HCL INJECTION CPT-4: J2550 02/02/2016 PRESCRIP TRANSMIT VIA ERX SY CPT-4: G8553 02/02/2016 FLU VACC PRSV FREE INC ANTIG 65 AND OLDER CPT-4: 93853 01/05/2016 PPPS, subseq visit CPT-4: G0439 01/05/2016 ADMIN INFLUENZA VIRUS VAC CPT-4: G0008 01/05/2016 URINE CULTURE/ COLONY COUNT CPT-4: 40862 12/05/2015 URINALYSIS NONAUTO W/O SCOPE CPT-4: 11125 12/05/2015 PRESCRIP TRANSMIT VIA ERX SY CPT-4: G8553 12/05/2015 PRESCRIP TRANSMIT VIA ERX SY CPT-4: G8553 10/26/2015 URINALYSIS NONAUTO W/O SCOPE CPT-4: 72761 10/05/2015 URINE CULTURE/ COLONY COUNT CPT-4: 65605 10/05/2015 PRESCRIP TRANSMIT VIA ERX SY CPT-4: G8553 10/05/2015 SERVICE REQUIRED FOR PMD CPT-4: G0372 09/15/2015 PRESCRIP TRANSMIT VIA ERX SY CPT-4: G8553 09/15/2015 SPECIAL REPORTS OR FORMS CPT-4: 30643 08/25/2015 PRESCRIP TRANSMIT VIA ERX SY CPT-4: G8553 07/05/2015 URINALYSIS NONAUTO W/O SCOPE CPT-4: 04331 03/30/2015 ASSAY, GLUCOSE, BLOOD QUANT CPT-4: 39928 03/30/2015 URINE CULTURE/ COLONY COUNT CPT-4: 65028 03/30/2015 PRESCRIP TRANSMIT VIA ERX SY CPT-4: G8553 03/30/2015 PRESCRIP TRANSMIT VIA ERX SY CPT-4: G8553 02/03/2015 FLU VACC PRSV FREE INC ANTIG 65 AND OLDER CPT-4: 44858 12/29/2014 ADMIN INFLUENZA VIRUS VAC CPT-4: G0008 12/29/2014 PRESCRIP TRANSMIT VIA ERX SY CPT-4: G8553 12/29/2014 PRESCRIP TRANSMIT VIA ERX SY CPT-4: G8553 09/02/2014 PROTEIN/CREAT URINE WITH RATIO CPT-4: 58278|55850 5 MICROALBUMIN QUANTITATIVE CPT-4: 11115 04/01/2014 PRESCRIP TRANSMIT VIA ERX SY CPT-4: G8553 03/16/2014 PRESCRIP TRANSMIT VIA ERX SY CPT-4: G8553 03/09/2014 THER/PROPH/DIAG INJ SC/IM CPT-4: 88792 03/01/2014 TRIAMCINOLONE ACET INJ NOS CPT-4: J3301 03/01/2014 PRESCRIP TRANSMIT VIA ERX SY CPT-4: G8553 02/09/2014 URINE CULTURE/ COLONY COUNT CPT-4: 16230 10/30/2013 URINALYSIS NONAUTO W/O SCOPE CPT-4: 63965 10/21/2013 URINE CULTURE/ COLONY COUNT CPT-4: 94104 10/21/2013 DESTRUCT PREMALG LESION (Cryosurgery) CPT-4: 54334 PRESCRIP TRANSMIT VIA ERX SY CPT-4: G8553 10/05/2013 URINALYSIS NONAUTO W/O SCOPE CPT-4: 79960 08/04/2013 URINE CULTURE/ COLONY COUNT CPT-4: 32774 08/04/2013 PRESCRIP TRANSMIT VIA ERX SY CPT-4: G8553 08/04/2013 THER/PROPH/DIAG INJ SC/IM CPT-4: 67999 07/13/2013 TRIAMCINOLONE ACET INJ NOS CPT-4: J3301 07/13/2013 PRESCRIP TRANSMIT VIA ERX SY CPT-4: G8553 05/27/2013 URINALYSIS NONAUTO W/O SCOPE CPT-4: 11167 05/25/2013 URINE CULTURE/ COLONY COUNT CPT-4: 90734 05/25/2013 THER/PROPH/DIAG INJ SC/IM CPT-4: 08278 05/04/2013 VITAMIN B12 INJECTION CPT-4: J3420 05/04/2013 THER/PROPH/DIAG INJ SC/IM CPT-4: 34928 04/17/2013 VITAMIN B12 INJECTION CPT-4: J3420 04/17/2013 THER/PROPH/DIAG INJ SC/IM CPT-4: 78606 04/17/2013 METHYLPREDNISOLONE 40 MG INJ CPT-4: J1030 04/17/2013 TRIAMCINOLONE ACET INJ NOS CPT-4: J3301 04/17/2013 URINALYSIS NONAUTO W/O SCOPE CPT-4: 81464 04/06/2013 URINE CULTURE/ COLONY COUNT CPT-4: 65765 04/06/2013 PRESCRIP TRANSMIT VIA ERX SY CPT-4: G8553 04/06/2013 KETOROLAC TROMETHAMINE INJ CPT-4: J1885 06/25/2012 PROMETHAZINE HCL INJECTION CPT-4: J2550 06/25/2012 THER/PROPH/DIAG INJ SC/IM CPT-4: 34080 06/25/2012 THER/PROPH/DIAG INJ SC/IM CPT-4: 51944 06/24/2012 METHYLPREDNISOLONE 40 MG INJ CPT-4: J1030 06/24/2012 TRIAMCINOLONE ACET INJ NOS CPT-4: J3301 06/24/2012 URINE CULTURE/ COLONY COUNT CPT-4: 02062 06/24/2012 THER/PROPH/DIAG INJ SC/IM CPT-4: 13421 05/20/2012 KETOROLAC TROMETHAMINE INJ CPT-4: J1885 05/20/2012 THER/PROPH/DIAG INJ SC/IM CPT-4: 14284 05/20/2012 PROMETHAZINE HCL INJECTION CPT-4: J2550 05/20/2012 DRAIN/INJECT JOINT/BURSA CPT-4: 38154 02/13/2012 METHYLPREDNISOLONE 40 MG INJ CPT-4: J1030 02/13/2012 TRIAMCINOLONE ACET INJ NOS CPT-4: J3301 02/13/2012 THER/PROPH/DIAG INJ SC/IM CPT-4: 61746 11/14/2011 METHYLPREDNISOLONE 40 MG INJ CPT-4: J1030 11/14/2011 TRIAMCINOLONE ACET INJ NOS CPT-4: J3301 11/14/2011 THER/PROPH/DIAG INJ SC/IM CPT-4: 06477 09/12/2011 KETOROLAC TROMETHAMINE INJ CPT-4: J1885 09/12/2011 THER/PROPH/DIAG INJ SC/IM CPT-4: 73911 08/09/2011 METHYLPREDNISOLONE 40 MG INJ CPT-4: J1030 08/09/2011 TRIAMCINOLONE ACET INJ NOS CPT-4: J3301 08/09/2011 URINE CULTURE/ COLONY COUNT CPT-4: 37400 07/03/2011 URINE CULTURE/ COLONY COUNT CPT-4: 68145 06/04/2011 THER/PROPH/DIAG INJ SC/IM CPT-4: 13195 05/03/2011 METHYLPREDNISOLONE 40 MG INJ CPT-4: J1030 05/03/2011 TRIAMCINOLONE ACET INJ NOS CPT-4: J3301 05/03/2011 URINALYSIS NONAUTO W/O SCOPE CPT-4: 94044 01/24/2011 URINE CULTURE/ COLONY COUNT CPT-4: 34400 01/24/2011 FLUZONE, 5ML (Medicare) CPT-4: Q2038 01/02/2011 ADMIN INFLUENZA VIRUS VAC CPT-4: G0008 01/02/2011 ASSAY, GLUCOSE, BLOOD QUANT CPT-4: 54831 12/07/2010 URINE CULTURE/ COLONY COUNT CPT-4: 49251 11/02/2010 THER/PROPH/DIAG INJ SC/IM CPT-4: 81211 10/18/2010 METHYLPREDNISOLONE 40 MG INJ CPT-4: J1030 10/18/2010 TRIAMCINOLONE ACET INJ NOS CPT-4: J3301 10/18/2010 TRIAMCINOLONE ACET INJ NOS CPT-4: J3301 05/11/2010 METHYLPREDNISOLONE 40 MG INJ CPT-4: J1030 05/11/2010 THER/PROPH/DIAG INJ SC/IM CPT-4: 59320 05/11/2010 TRIAMCINOLONE ACET INJ NOS CPT-4: J3301 02/09/2010 METHYLPREDNISOLONE 40 MG INJ CPT-4: J1030 02/09/2010 THER/PROPH/DIAG INJ SC/IM CPT-4: 24074 02/09/2010 SERVICE REQUIRED FOR PMD CPT-4: G0372 02/09/2010 FLU VACCINE 3 YRS & > IM UP 64 CPT-4: 69061 0 PNEUMOCOCCAL VACC 23 RANDALL IM CPT-4: 75818 12/07/2009 ADMIN INFLUENZA VIRUS VAC CPT-4: G0008 12/07/2009 ADMIN PNEUMOCOCCAL VACCINE CPT-4: G0009 12/07/2009 TRIAMCINOLONE ACET INJ NOS CPT-4: J3301 05/26/2009 THER/PROPH/DIAG INJ SC/IM CPT-4: 16522 05/26/2009 METHYLPREDNISOLONE 80 MG INJ CPT-4: J1040 [...] 1: 114/72 Code: 8480-6 BMI: 37.8 Code: 46221-2 Heart Rate 1: 72 bpm Height: 5'3" [...] 1: 106/68 Code: 8480-6 BMI: 35.7 Code: 27035-6 Heart Rate 1: 72 bpm Height: 5'4" Respiratory Rate: 20 bpm SpO2: 98% Tempera ture: 36.7 (C) / 98.0 (F) Weight: 208 lbs 04/16/2018 Blood Pressure 1: 132/82 Code: 8480-6 BMI: 37.9 Code: 24610-8 Heart Rate 1: 72 bpm Height: 5'4" Respiratory Rate: 20 bpm SpO2: 96% Tempera ture: 37.1 (C) / 98.8 (F) Weight: 221 lbs 04/01/2018 Blood Pressure 1: 150/90 Code: 8480-6 Heart Rate 1: 72 bpm Respiratory Rate: 22 bpm SpO2: 95% Temperature: 36.4 (C) / 97.6 (F) We ight: 216 lbs 03/06/2018 Blood Pressure 1: 126/78 Code: 8480-6 BMI: 37.4 Code: 14253-2 Heart Rate 1: 68 bpm Height: 5'4" [...] ight: 222 lbs 12/25/2017 BMI: 37.8 Code: 14074-9 Heart Rate 1: 76 bpm Height: 5 '4" Respiratory Rate: 20 bpm SpO2: 96% Temperature: 37.3 (C) / 99.2 (F) Weight: 220 lbs 12/17/2017 Blood Pressure 1: 132/78 Code: 8480-6 BMI: 37.2 Code: 73468-1 Heart Rate 1: 88 bpm Height: 5'4" Respiratory Rate: 20 bpm SpO2: 96% Tempera ture: 37.3 (C) / 99.2 (F) Weight: 217 lbs 10/30/2017 Blood Pressure 1: 114/68 Code: 8480-6 BMI: 36.4 Code: 10205-5 Heart Rate 1: 72 bpm Height: 5'4" Respiratory Rate: 22 bpm SpO2: 96% Tempera ture: 36.8 (C) / 98.2 (F) Weight: 212 lbs 10/23/2017 Blood Pressure 1: 124/78 Code: 8480-6 Heart Rate 1: 72 bpm Respiratory Rate: 24 bpm SpO2: 94% Temperature: 36.6 (C) / 97.9 (F) We ight: 212 lbs 09/17/2017 Blood Pressure 1: 128/82 Code: 8480-6 BMI: 37.4 Code: 13820-9 Heart Rate 1: 72 bpm Height: 5'4" Respiratory Rate: 20 bpm SpO2: 96% Tempera ture: 37.0 (C) / 98.6 (F) Weight: 218 lbs 07/19/2017 Blood Pressure 1: 136/84 Code: 8480-6 BMI: 36.6 Code: 87254-2 Heart Rate 1: 88 bpm Height: 5'4" Respiratory Rate: 20 bpm SpO2: 97% Tempera ture: 36.7 (C) / 98.0 (F) Weight: 213 lbs 05/29/2017 Blood Pressure 1: 136/82 Code: 8480-6 BMI: 36.7 Code: 38601-1 Heart Rate 1: 72 bpm Height: 5'4" Respiratory Rate: 20 bpm SpO2: 97% Tempera ture: 36.9 (C) / 98.4 (F) Weight: 214 lbs 05/07/2017 Blood Pressure 1: 122/80 Code: 8480-6 BMI: 37.1 Code: 54417-4 Heart Rate 1: 80 bpm Height: 5'4" Respiratory Rate: 24 bpm SpO2: 96% Tempera ture: 36.1 (C) / 97.0 (F) Weight: 216 lbs 03/18/2017 BMI: 36.7 Code: 77301-7 Heart Rate 1: 80 bpm Height: 5 '4" Respiratory Rate: 22 bpm SpO2: 95% Temperature: 36.9 (C) / 98.4 (F) Weight: 214 lbs 02/27/2017 Blood Pressure 1: 146/94 Code: 8480-6 BMI: 36.6 Code: 14660-3 Heart Rate 1: 76 bpm Height: 5'4" Respiratory Rate: 22 bpm SpO2: 97% Tempera ture: 36.6 (C) / 97.9 (F) Weight: 213 lbs 02/22/2017 Blood Pressure 1: 126/90 Code: 8480-6 BMI: 36.4 Code: 40764-8 Heart Rate 1: 84 bpm Height: 5'4" Respiratory Rate: 22 bpm SpO2: 95% Tempera ture: 36.9 (C) / 98.4 (F) Weight: 212 lbs 01/23/2017 Blood Pressure 1: 146/82 Code: 8480-6 BMI: 37.6 Code: 81885-5 Heart Rate 1: 96 bpm Height: 5'4" Respiratory Rate: 20 bpm SpO2: 96% Tempera ture: 36.9 (C) / 98.4 (F) Weight: 219 lbs 12/20/2016 Blood Pressure 1: 126/70 Code: 8480-6 BMI: 37.2 Code: 52747-2 Heart Rate 1: 76 bpm Height: 5'4" Respiratory Rate: 22 bpm SpO2: 95% Tempera ture: 36.6 (C) / 97.8 (F) Weight: 217 lbs 10/08/2016 Blood Pressure 1: 128/82 Code: 8480-6 BMI: 36.9 Code: 62997-0 Heart Rate 1: 76 bpm Height: 5'4" Respiratory Rate: 20 bpm SpO2: 95% Tempera ture: 37.0 (C) / 98.6 (F) Weight: 215 lbs 09/19/2016 Blood Pressure 1: 144/78 Code: 8480-6 BMI: 37.8 Code: 04616-7 Heart Rate 1: 76 bpm Height: 5'4" Respiratory Rate: 22 bpm SpO2: 95% Tempera ture: 37.0 (C) / 98.6 (F) Weight: 220 lbs 08/20/2016 Blood Pressure 1: 140/86 Code: 8480-6 BMI: 37.4 Code: 43944-3 Heart Rate 1: 80 bpm Height: 5'4" Respiratory Rate: 20 bpm SpO2: 95% Tempera ture: 36.9 (C) / 98.4 (F) Weight: 218 lbs 06/19/2016 Blood Pressure 1: 124/78 Code: 8480-6 BMI: 37.8 Code: 17174-9 Heart Rate 1: 74 bpm Height: 5'4" Respiratory Rate: 24 bpm SpO2: 96% Tempera ture: 36.9 (C) / 98.4 (F) Weight: 220 lbs 06/04/2016 Blood Pressure 1: 124/78 Code: 8480-6 BMI: 38.8 Code: 83086-9 Heart Rate 1: 72 bpm Height: 5'4" Respiratory Rate: 24 bpm SpO2: 95% Tempera ture: 36.8 (C) / 98.2 (F) Weight: 226 lbs 05/02/2016 Blood Pressure 1: 136/90 Code: 8480-6 BMI: 37.6 Code: 06503-2 Heart Rate 1: 72 bpm Height: 5'4" Respiratory Rate: 24 bpm SpO2: 96% Tempera ture: 36.9 (C) / 98.4 (F) Weight: 219 lbs 04/03/2016 Blood Pressure 1: 126/78 Code: 8480-6 BMI: 38.1 Code: 80400-2 Heart Rate 1: 72 bpm Height: 5'4" Respiratory Rate: 22 bpm SpO2: 94% Tempera ture: 36.9 (C) / 98.4 (F) Weight: 222 lbs 02/29/2016 Blood Pressure 1: 132/78 Code: 8480-6 Heart Rate 1: 78 bpm Height: Respiratory Rate: 24 bpm SpO2: 95% Temperature: 36.4 (C) / 97.6 (F) We ight: 02/02/2016 Blood Pressure 1: 124/78 Code: 8480-6 BMI: 37.6 Code: 39742-6 Heart Rate 1: 76 bpm Height: 5'4" Respiratory Rate: 20 bpm SpO2: 95% Tempera ture: 36.8 (C) / 98.2 (F) Weight: 219 lbs 01/05/2016 Blood Pressure 1: 126/70 Code: 8480-6 BMI: 37.1 Code: 90661-1 Heart Rate 1: 76 bpm Height: 5'4" Respiratory Rate: 20 bpm Temperature: 36 .6 (C) / 97.8 (F) Weight: 216 lbs 12/05/2015 Blood Pressure 1: 126/72 Code: 8480-6 BMI: 36.9 Code: 52556-8 Heart Rate 1: 92 bpm Height: 5'4" Respiratory Rate: 20 bpm Temperature: 36 .7 (C) / 98.1 (F) Weight: 215 lbs 10/26/2015 Blood Pressure 1: 142/80 Code: 8480-6 BMI: 36.4 Code: 94251-8 Heart Rate 1: 82 bpm Height: 5'4" Respiratory Rate: 24 bpm SpO2: 92% Tempera ture: 35.9 (C) / 96.7 (F) Weight: 212 lbs 10/05/2015 Blood Pressure 1: 136/82 Code: 8480-6 Heart Rate 1: 80 bpm Respiratory Rate: 18 bpm SpO2: 98% Temperature: 35.7 (C) / 96.3 (F) We ight: 214 lbs 09/15/2015 Blood Pressure 1: 116/80 Code: 8480-6 BMI: 34.6 Code: 67305-2 Heart Rate 1: 76 bpm Height: 5'6" Respiratory Rate: 20 bpm Temperature: 36 .6 (C) / 97.9 (F) Weight: 211 lbs 08/24/2015 Blood Pressure 1: 124/80 Code: 8480-6 BMI: 34.1 Code: 41251-4 Heart Rate 1: 68 bpm Height: 5'6" Respiratory Rate: 20 bpm Temperature: 36 .8 (C) / 98.3 (F) Weight: 208 lbs 07/05/2015 Blood Pressure 1: 114/78 Code: 8480-6 BMI: 33.9 Code: 59174-3 Heart Rate 1: 80 bpm Height: 5'6" Respiratory Rate: 20 bpm Temperature: 36 .6 (C) / 97.9 (F) Weight: 207 lbs 06/06/2015 Blood Pressure 1: 122/78 Code: 8480-6 BMI: 34.1 Code: 47734-5 Heart Rate 1: 76 bpm Height: 5'6" Respiratory Rate: 24 bpm SpO2: 96% Tempera ture: 36.4 (C) / 97.6 (F) Weight: 208 lbs 05/23/2015 Blood Pressure 1: 124/78 Code: 8480-6 Heart Rate 1: 76 bpm Respiratory Rate: 24 bpm SpO2: 93% Temperature: 36.8 (C) / 98.2 (F) We ight: 212 lbs 05/05/2015 Blood Pressure 1: 136/80 Code: 8480-6 BMI: 35.4 Code: 18540-2 Heart Rate 1: 76 bpm Height: 5'6" Respiratory Rate: 28 bpm Temperature: 37 .0 (C) / 98.6 (F) Weight: 216 lbs 03/30/2015 Blood Pressure 1: 132/86 Code: 8480-6 BMI: 35.2 Code: 01488-4 Heart Rate 1: 84 bpm Height: 5'6" Respiratory Rate: 24 bpm Temperature: 36 .7 (C) / 98.0 (F) Weight: 215 lbs 02/03/2015 Blood Pressure 1: 122/74 Code: 8480-6 BMI: 35.7 Code: 64325-9 Heart Rate 1: 84 bpm Height: 5'6" Respiratory Rate: 20 bpm Temperature: 36 .9 (C) / 98.5 (F) Weight: 218 lbs 12/29/2014 Blood Pressure 1: 132/80 Code: 8480-6 BMI: 35.1 Code: 13661-0 Heart Rate 1: 80 bpm Height: 5'6" Respiratory Rate: 20 bpm Temperature: 36 .6 (C) / 97.8 (F) Weight: 214 lbs 09/02/2014 Blood Pressure 1: 128/92 Code: 8480-6 BMI: 34.7 Code: 19362-7 Heart Rate 1: 84 bpm Height: 5'6" Respiratory Rate: 26 bpm Temperature: 36 .8 (C) / 98.2 (F) Weight: 212 lbs 08/25/2014 Blood Pressure 1: 124/80 Code: 8480-6 BMI: 34.7 Code: 55265-3 Heart Rate 1: 78 bpm Height: 5'6" Respiratory Rate: 22 bpm SpO2: 97% Tempera ture: 36.6 (C) / 97.8 (F) Weight: 212 lbs 04/01/2014 Blood Pressure 1: 142/84 Code: 8480-6 BMI: 34.4 Code: 89960-9 Heart Rate 1: 74 bpm Height: 5'5" Respiratory Rate: 20 bpm Temperature: 36 .4 (C) / 97.6 (F) Weight: 207 lbs 03/16/2014 Blood Pressure 1: 142/90 Code: 8480-6 BMI: 34.6 Code: 79166-9 Heart Rate 1: 76 bpm Height: 5'5" Respiratory Rate: 24 bpm Temperature: 36 .5 (C) / 97.7 (F) Weight: 208 lbs 03/09/2014 Blood Pressure 1: 116/70 Code: 8480-6 BMI: 35.3 Code: 94411-2 Heart Rate 1: 72 bpm Height: 5'5" [...] 1: 128/86 Code: 8480-6 BMI: 34.3 Code: 98935-3 Heart Rate 1: 84 bpm Height: 5'5" Respiratory Rate: 20 bpm Temperature: 36 .7 (C) / 98.0 (F) Weight: 206 lbs 12/23/2013 Blood Pressure 1: 122/70 Code: 8480-6 BMI: 34.3 Code: 40993-3 Heart Rate 1: 68 bpm Height: 5'5" Respiratory Rate: 20 bpm Temperature: 36 .8 (C) / 98.2 (F) Weight: 206 lbs 10/05/2013 Blood Pressure 1: 118/76 Code: 8480-6 BMI: 34.1 Code: 87591-9 Heart Rate 1: 68 bpm Height: 5'5" Respiratory Rate: 20 bpm SpO2: 98% Tempera ture: 36.6 (C) / 97.9 (F) Weight: 205 lbs 08/04/2013 Blood Pressure 1: 126/82 Code: 8480-6 BMI: 33.3 Code: 70416-6 Heart Rate 1: 76 bpm Height: 5'5" Respiratory Rate: 20 bpm Temperature: 36 .8 (C) / 98.2 (F) Weight: 200 lbs 07/03/2013 Blood Pressure 1: 124/82 Code: 8480-6 BMI: 33.3 Code: 96323-5 Heart Rate 1: 72 bpm Height: 5'5" Respiratory Rate: 22 bpm Temperature: 36 .1 (C) / 97.0 (F) Weight: 200 lbs 05/27/2013 Blood Pressure 1: 126/82 Code: 8480-6 Heart Rate 1: 74 bpm Respiratory Rate: 20 bpm Temperature: 36.0 (C) / 96.8 (F) Weight: 199 lbs 04/06/2013 Blood Pressure 1: 118/80 Code: 8480-6 BMI: 35.2 Code: 40373-6 Heart Rate 1: 80 bpm Height: 5'4" Respiratory Rate: 20 bpm Temperature: 37 .4 (C) / 99.3 (F) Weight: 205 lbs 11/10/2012 Blood Pressure 1: 128/82 Code: 8480-6 Heart Rate 1: 84 bpm Respiratory Rate: 20 bpm Temperature: 36.7 (C) / 98.0 (F) Weight: 199 lbs 09/02/2012 Blood Pressure 1: 116/82 Code: 8480-6 BMI: 34.2 Code: 91317-0 Heart Rate 1: 88 bpm Height: 5'4" Respiratory Rate: 22 bpm Temperature: 36 .6 (C) / 97.8 (F) Weight: 199 lbs 08/04/2012 Blood Pressure 1: 128/74 Code: 8480-6 BMI: 34.0 Code: 56014-5 Heart Rate 1: 92 bpm Height: 5'4" Respiratory Rate: 20 bpm Temperature: 36 .4 (C) / 97.5 (F) Weight: 198 lbs 07/21/2012 Blood Pressure 1: 124/86 Code: 8480-6 Heart Rate 1: 116 bpm Respiratory Rate: 24 bpm Temperature: 36.8 (C) / 98.2 (F) 07/02/2012 Blood Pressure 1: 116/88 Code: 8480-6 BMI: 33.6 Code: 71359-2 Heart Rate 1: 76 bpm Height: 5'4" Respiratory Rate: 20 bpm Temperature: 36 .8 (C) / 98.3 (F) Weight: 196 lbs 06/24/2012 Blood Pressure 1: 124/80 Code: 8480-6 BMI: 34.3 Code: 14811-0 Heart Rate 1: 72 bpm Height: 5'4" SpO2: 96% Temperature: 36.3 (C) / 97.3 (F) Weight: 200 lbs 05/20/2012 Blood Pressure 1: 116/88 Code: 8480-6 BMI: 33.8 Code: 13943-9 Heart Rate 1: 80 bpm Height: 5'4" Respiratory Rate: 22 bpm Temperature: 36 .9 (C) / 98.4 (F) Weight: 197 lbs 05/08/2012 Blood Pressure 1: 128/86 Code: 8480-6 BMI: 33.8 Code: 19971-6 Heart Rate 1: 76 bpm Height: 5'4" Respiratory Rate: 26 bpm SpO2: 95% Tempera ture: 36.1 (C) / 97.0 (F) Weight: 197 lbs 04/22/2012 Blood Pressure 1: 106/64 Code: 8480-6 BMI: 33.8 Code: 77420-2 Heart Rate 1: 70 bpm Height: 5'4" Temperature: 36.1 (C) / 97.0 (F) Weight: 197 lbs 02/13/2012 Blood Pressure 1: 126/82 Code: 8480-6 BMI: 34.7 Code: 40632-5 Heart Rate 1: 64 bpm Height: 5'4" Respiratory Rate: 20 bpm Temperature: 36 .6 (C) / 97.8 (F) Weight: 202 lbs 01/28/2012 Blood Pressure 1: 116/80 Code: 8480-6 BMI: 34.7 Code: 70184-2 Heart Rate 1: 76 bpm Height: 5'4" Respiratory Rate: 20 bpm Temperature: 36 .8 (C) / 98.3 (F) Weight: 202 lbs 12/26/2011 Blood Pressure 1: 132/82 Code: 8480-6 BMI: 36.0 Code: 14861-4 Heart Rate 1: 68 bpm Height: 5'4" Respiratory Rate: 22 bpm Temperature: 36 .7 (C) / 98.0 (F) Weight: 210 lbs 11/14/2011 Blood Pressure 1: 124/80 Code: 8480-6 BMI: 36.4 Code: 95043-7 Heart Rate 1: 76 bpm Height: 5'4" Respiratory Rate: 20 bpm Temperature: 36 .8 (C) / 98.2 (F) Weight: 212 lbs 09/12/2011 Blood Pressure 1: 108/74 Code: 8480-6 BMI: 37.1 Code: 16782-3 Heart Rate 1: 72 bpm Height: 5'4" Respiratory Rate: 20 bpm Temperature: 37 .0 (C) / 98.6 (F) Weight: 216 lbs 08/15/2011 Blood Pressure 1: 122/80 Code: 8480-6 BMI: 36.9 Code: 88172-4 Heart Rate 1: 76 bpm Height: 5'4" Respiratory Rate: 20 bpm Temperature: 36 .2 (C) / 97.1 (F) Weight: 215 lbs 08/09/2011 Blood Pressure 1: 112/78 Code: 8480-6 BMI: 36.9 Code: 54130-4 Heart Rate 1: 68 bpm Height: 5'4" Respiratory Rate: 20 bpm Temperature: 36 .7 (C) / 98.0 (F) Weight: 215 lbs 07/03/2011 Blood Pressure 1: 140/94 Code: 8480-6 BMI: 36.2 Code: 98887-8 Heart Rate 1: 68 bpm Height: 5'4" Temperature: 36.0 (C) / 96.8 (F) Weight: 211 lbs 06/04/2011 Blood Pressure 1: 124/70 Code: 8480-6 BMI: 36.7 Code: 10130-1 Heart Rate 1: 68 bpm Height: 5'4" Respiratory Rate: 20 bpm Temperature: 36 .6 (C) / 97.9 (F) Weight: 214 lbs 05/03/2011 Blood Pressure 1: 130/76 Code: 8480-6 BMI: 36.4 Code: 00397-8 Heart Rate 1: 74 bpm Height: 5'5" Temperature: 36.2 (C) / 97.2 (F) Weight: 219 lbs 04/05/2011 Blood Pressure 1: 124/86 Code: 8480-6 BMI: 35.9 Code: 19819-1 Heart Rate 1: 76 bpm Height: 5'6" Respiratory Rate: 22 bpm Temperature: 36 .3 (C) / 97.3 (F) Weight: 219 lbs 03/08/2011 Blood Pressure 1: 112/78 Code: 8480-6 BMI: 35.1 Code: 68434-3 Heart Rate 1: 80 bpm Height: 5'6" Respiratory Rate: 26 bpm Temperature: 36 .9 (C) / 98.4 (F) Weight: 214 lbs 01/24/2011 Blood Pressure 1: 110/82 Code: 8480-6 BMI: 35.6 Code: 74616-6 Heart Rate 1: 80 bpm Height: 5'6" Temperature: 36.1 (C) / 97.0 (F) Weight: 217 lbs 01/02/2011 Blood Pressure 1: 106/72 Code: 8480-6 BMI: 35.6 Code: 81885-6 Heart Rate 1: 76 bpm Height: 5'6" [...] 1: 120/74 Code: 8480-6 BMI: 35.9 Code: 91036-7 Heart Rate 1: 72 bpm Height: 5'5" Temperature: 36.3 (C) / 97.4 (F) Weight: 216 lbs 09/19/2010 Blood Pressure 1: 124/80 Code: 8480-6 BMI: 35.4 Code: 54636-1 Heart Rate 1: 76 bpm Height: 5'5" [...] 1: 122/78 Code: 8480-6 BMI: 37.4 Code: 19520-4 Heart Rate 1: 84 bpm Height: 5'5" [...] follow up 10/26/2015 ER visit from at [facility] for COPD Exacerbation follow up 10/05/2015 [...] 1 month f/u follow up 12/07/2009 from [facility], done with PT--finished about 2wks ago follow [...] illness[ICD10: R50.9] Diagnosis: Colitis[ICD10: K52.9] Belia Reid [facility] CPT-4: 38971 05/26/2019 ([id number]) OFFICE/OUTPATIENT VISIT EST Diagnosis: Chronic obstructive pulmonary disease, unspecified[ICD10: J44.9] Diagnosis: Pulmonary fibrosis[ICD10: J84.10] Diagnosis: Intermittent stridor[ICD10: R06.1] Diagnosis: Muscle weakness[ICD10: M62.81] Belia REID DO [facility] CPT-4: 35556 05/13/2019 ([id number]) OFFICE/OUTPATIENT VISIT EST Diagnosis: Stridor[ICD10: R06.1] Diagnosis: COUGH[ICD10: R05] Belia REID DO [facility] CPT-4: 09674 05/06/2019 ([id number]) OFFICE/OUTPATIENT VISIT EST Diagnosis: Stridor[ICD10: R06.1] Diagnosis: Muscle, jerky movements (uncontrolled)[ICD10: G25.5] Belia REID DO [facility] CPT-4: 14974 04/29/2019 ([id number]) OFFICE/OUTPATIENT VISIT EST Diagnosis: Upper respiratory infection[ICD10: J06.9] Diagnosis: Flank pain[ICD10: R10.9] Diagnosis: Weight gain[ICD10: R63.5] Pattie AMBRIZ [facility] CPT-4: 77593 04/16/2019 ([id number]) OFFICE/OUTPATIENT VISIT EST Diagnosis: Generalized pruritus[ICD10: L29.9] Belia BASS MARIE Yuridia REID [facility] CPT-4: 66339 04/08/2019 ([id number]) OFFICE/OUTPATIENT VISIT EST Diagnosis: Acute bursitis of left shoulder[ICD10: M75.52] Diagnosis: Cervicalgia[ICD10: M54.2] Diagnosis: Chest wall pain[ICD10: R07.89] Belia REID [facility] CPT-4: 00391 01/22/2019 ([id number]) OFFICE/OUTPATIENT VISIT EST Diagnosis: Abdominal pain[ICD10: R10.9] Diagnosis: Pyelonephritis[ICD10: N12] Pattie DOMINGUEZ [facility] CPT-4: 85801 01/07/2019 ([id number]) OFFICE/OUTPATIENT VISIT EST Diagnosis: Low back pain[ICD10: M54.5] Diagnosis: Left lumbar radiculopathy[ICD10: M54.16] Diagnosis: Left flank pain[ICD10: R10.9] Diagnosis: Left lower quadrant pain[ICD10: R10.32] Diagnosis: FLU VACCINE[ICD10: Z23] Belia FREDERICK [facility] CPT-4: 56204 12/24/2018 ([id number]) OFFICE/OUTPATIENT VISIT EST Diagnosis: Migraine, unspecified, not intractable, without status migrainosus[ICD10: G43.909] Diagnosis: Fibromyalgia[ICD10: M79.7] Belia DOMINGUEZ DO [facility] CPT-4: 40129 11/20/2018 ([id number]) OFFICE/OUTPATIENT VISIT EST Diagnosis: Migraine, unspecified, intractable, without status migrainosus[ICD10: G43.919] Diagnosis: Acute sinusitis, unspecified[ICD10: J01.90] Pattie REID DO [facility] CPT-4: 24328 11/04/2018 ([id number]) OFFICE/OUTPATIENT VISIT EST Diagnosis: Pain in left wrist[ICD10: M25.532] Diagnosis: Other dorsalgia[ICD10: M54.89] Pattie REID DO [facility] CPT-4: 70190 09/08/2018 ([id number]) OFFICE/OUTPATIENT VISIT EST Diagnosis: Acute stress reaction[ICD10: F43.0] Diagnosis: Pruritus, unspecified[ICD10: L29.9] 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, 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] Belia REID DO [facility] CPT-4: 78305 08/20/2018 ([id number]) OFFICE/OUTPATIENT VISIT EST Diagnosis: Hypotension due to drugs[ICD10: I95.2] Diagnosis: Paroxysmal atrial fibrillation[ICD10: I48.0] Diagnosis: Localized edema[ICD10: R60.0] Belia REID DO [facility] CPT-4: 86055 06/19/2018 ([id number]) OFFICE/OUTPATIENT VISIT EST Diagnosis: Generalized hyperhidrosis[ICD10: R61] Diagnosis: Essential (primary) hypertension[ICD10: I10] Diagnosis: Supraventricular tachycardia[ICD10: I47.1] Belia REID DO [facility] CPT-4: 96750 06/09/2018 ([id number]) OFFICE/OUTPATIENT VISIT EST Diagnosis: Stridor[ICD10: R06.1] Diagnosis: Dependence on supplemental oxygen[ICD10: Z99.81] Diagnosis: Weakness[ICD10: R53.1] Diagnosis: Supraventricular tachycardia[ICD10: I47.1] Belia REID [facility] CPT-4: 49734 05/21/2018 ([id number]) OFFICE/OUTPATIENT VISIT EST Diagnosis: Cervical disc disorder with radiculopathy, unspecified cervical region[ICD10: M50.10] [facility] CPT-4: 13831 04/16/2018 ([id number]) OFFICE/OUTPATIENT VISIT EST Diagnosis: Migraine, unspecified, intractable, without status migrainosus[ICD10: G43.919] Diagnosis: Fibromyalgia[ICD10: M79.7] Pattie DOMINGUEZ [facility] CPT-4: 54686 04/01/2018 ([id number]) NURSE/OUTPATIENT VISIT EST Diagnosis: Hematuria, unspecified[ICD10: R31.9] Diagnosis: Dysuria[ICD10: R30.0] Belia [facility] CPT-4: 49968 03/17/2018 ([id number]) OFFICE/OUTPATIENT VISIT EST Diagnosis: Erythema intertrigo[ICD10: L30.4] Diagnosis: Chronic obstructive pulmonary disease with (acute) exacerbation[ICD10: J44.1] Diagnosis: Type 2 diabetes mellitus with hyperglycemia[ICD10: E11.65] Belia [facility] CPT-4: 78343 03/06/2018 ([id number]) OFFICE/OUTPATIENT VISIT EST Diagnosis: Cervicalgia[ICD10: M54.2] Pattie AMBRIZ [facility] CPT-4: 92655 02/05/2018 ([id number]) OFFICE/OUTPATIENT VISIT EST Diagnosis: Candidiasis of skin and nail[ICD10: B37.2] Diagnosis: Cervicalgia[ICD10: M54.2] Pattie AMBRIZ [facility] CPT-4: 16628 01/20/2018 ([id number]) OFFICE/OUTPATIENT VISIT EST Diagnosis: Pain in thoracic spine[ICD10: M54.6] Diagnosis: Radiculopathy, thoracic region[ICD10: M54.14] Belia REID DO [facility] CPT-4: 31544 12/25/2017 ([id number]) OFFICE/OUTPATIENT VISIT EST Diagnosis: Pain in thoracic spine[ICD10: M54.6] Diagnosis: Other muscle spasm[ICD10: M62.838] Diagnosis: FLU VACCINE[ICD10: Z23] Diagnosis: PNEUMOCOCCAL VACCINE[ICD10: Z23] Belia REID DO [facility] CPT-4: 81354 12/17/2017 ([id number]) OFFICE/OUTPATIENT VISIT EST Diagnosis: Chronic obstructive pulmonary disease with (acute) exacerbation[ICD10: J44.1] Belia REID DO [facility] CPT- 4: 65832 10/30/2017 ([id number]) OFFICE/OUTPATIENT VISIT EST Diagnosis: Chronic obstructive pulmonary disease with acute lower respiratory infection[ICD10: J44.0] Diagnosis: Mild intermittent asthma with (acute) exacerbation[ICD10: J45.21] Belia REID [place] [facility] CPT-4: 08814 10/23/2017 ([id number]) NURSE/OUTPATIENT VISIT EST Diagnosis: Migraine, unspecified, not intractable, without status migrainosus[ICD10: G43.909] Belia REID DO [facility] CPT - 4: 41331 08/26/2017 ([id number]) OFFICE/OUTPATIENT VISIT EST Diagnosis: Urinary tract infection, site not specified[ICD10: N39.0] Diagnosis: Encounter for screening for osteoporosis[ICD10: Z13.820] Diagnosis: Encounter for screening mammogram for malignant neoplasm of breast[ICD10: Z12.31] Diagnosis: Acute bronchitis, unspecified[ICD10: J20.9] Pattie REID [place] [facility] CPT-4: 28794 07/19/2017 ([id number]) OFFICE/OUTPATIENT VISIT EST Diagnosis: Rash and other nonspecific skin eruption[ICD10: R21] Pattie REID DO [facility] CPT-4: 87443 05/29/2017 ([id number]) OFFICE/OUTPATIENT VISIT EST Diagnosis: Diarrhea, unspecified[ICD10: R19.7] Diagnosis: Tinea corporis[ICD10: B35.4] Diagnosis: Tinea cruris[ICD10: B35.6] Diagnosis: Migraine, unspecified, not intractable, without status migrainosus[ICD10: G43.909] Belia REID [place] [facility] CPT - 4: 70518 05/07/2017 ([id number]) OFFICE/OUTPATIENT VISIT EST Diagnosis: Stridor[ICD10: R06.1] Diagnosis: Chronic obstructive pulmonary disease with (acute) exacerbation[ICD10: J44.1] Belia REID [facility] CPT- 4: 50783 03/18/2017 ([id number]) OFFICE/OUTPATIENT VISIT EST Diagnosis: Type 2 diabetes mellitus with hyperglycemia[ICD10: E11.65] Belia SMITH [place] [facility] CPT-4: 52501 02/27/2017 OFFICE/OUTPATIENT VISIT EST Diagnosis: Type 2 diabetes mellitus with hyperglycemia[ICD10: E11.65] Pattie SMITH [place] [facility] CPT-4: 14502 02/22/2017 ([id number]) OFFICE/OUTPATIENT VISIT EST Diagnosis: Urinary tract infection, site not specified[ICD10: N39.0] Diagnosis: Pneumonia, unspecified organism[ICD10: J18.9] Diagnosis: Type 2 diabetes mellitus with hyperglycemia[ICD10: E11.65] Belia REID [facility] CPT-4: 71909 01/23/2017 ([id number]) OFFICE/OUTPATIENT VISIT EST Diagnosis: Type 2 diabetes mellitus with hyperglycemia[ICD10: E11.65] Diagnosis: Localized edema[ICD10: R60.0] Diagnosis: PNEUMOCOCCAL VACCINE[ICD10: Z23] Diagnosis: FLU VACCINE[ICD10: Z23] Belia SMITH [facility] CPT-4: 10206 12/20/2016 OFFICE/OUTPATIENT VISIT EST Diagnosis: Pain in thoracic spine[ICD10: M54.6] Diagnosis: Low back pain[ICD10: M54.5] Diagnosis: Cervicalgia[ICD10: M54.2] Diagnosis: Cough[ICD10: R05] Celeste FarooqKipAbdiel REID DO [facility] CPT-4: 85990 10/08/2016 ([id number]) OFFICE/OUTPATIENT VISIT EST Diagnosis: Primary insomnia[ICD10: F51.01] Diagnosis: Migraine, unspecified, not intractable, without status migrainosus[ICD10: G43.909] Diagnosis: Type 2 diabetes mellitus with hyperglycemia[ICD10: E11.65] Belia REID DO [facility] CPT-4: 79401 09/19/2016 ([id number]) OFFICE/OUTPATIENT VISIT EST Diagnosis: Migraine, unspecified, not intractable, without status migrainosus[ICD10: G43.909] Diagnosis: Generalized abdominal pain[ICD10: R10.84] Diagnosis: Cough[ICD10: R05] Belia REID DO [facility] CPT-4: 67002 08/20/2016 ([id number]) OFFICE/OUTPATIENT VISIT EST Diagnosis: Chronic obstructive pulmonary disease, unspecified[ICD10: J44.9] Diagnosis: Stridor[ICD10: R06.1] Belia REID DO [facility] CPT-4: 85947 06/19/2016 ([id number]) OFFICE/OUTPATIENT VISIT EST Diagnosis: Chronic obstructive pulmonary disease, unspecified[ICD10: J44.9] Diagnosis: Personal history of urinary (tract) infections[ICD10: Z87.440] Belia REID DO [facility] CPT-4: 40874 06/04/2016 ([id number]) OFFICE/OUTPATIENT VISIT EST Diagnosis: Stridor[ICD10: R06.1] Diagnosis: Chronic obstructive pulmonary disease with acute lower respiratory infection[ICD10: J44.0] Diagnosis: Other specified diseases of intestine[ICD10: K63.89] Diagnosis: Cystitis, unspecified without hematuria[ICD10: N30.90] Belia REID DO [facility] CPT-4: 22393 05/02/2016 ([id number]) OFFICE/OUTPATIENT VISIT EST Diagnosis: Fibromyalgia[ICD10: M79.7] Diagnosis: Urinary tract infection, site not specified[ICD10: N39.0] Belia REID [place] [facility] CPT-4: 48844 04/03/2016 ([id number]) OFFICE/OUTPATIENT VISIT EST Diagnosis: Unspecified asthma, uncomplicated[ICD10: J45.909] Diagnosis: Cough[ICD10: R05] Lidia REID [facility] T-4: 40259 02/29/2016 ([id number]) OFFICE/OUTPATIENT VISIT EST Diagnosis: Migraine, unspecified, intractable, without status migrainosus[ICD10: G43.919] Diagnosis: Urinary tract infection, site not specified[ICD10: N39.0] Belia REID [place] CPT-4: 72953 02/02/2016 ([id number]) OFFICE/OUTPATIENT VISIT EST Diagnosis: Urinary tract infection, site not specified[ICD10: N39.0] Diagnosis: Unspecified abdominal pain[ICD10: R10.9] Diagnosis: Pain in thoracic spine[ICD10: M54.6] Diagnosis: Type 2 diabetes mellitus with diabetic neuropathic arthropathy[ICD10: E11.610] Belia REID [facility] CPT-4: 34062 12/05/2015 ([id number]) OFFICE/OUTPATIENT VISIT EST Diagnosis: Chronic obstructive pulmonary disease with (acute) exacerbation[ICD10: J44.1] Diagnosis: Migraine, unspecified, not intractable, without status migrainosus[ICD10: G43.909] Lidia REID [facility] CPT -4: 74726 10/26/2015 ([id number]) OFFICE/OUTPATIENT VISIT EST Diagnosis: Hematuria, unspecified[ICD10: R31.9] Diagnosis: Urinary tract infection, site not specified[ICD10: N39.0] Lidia REID [facility] CPT-4: 91216 10/05/2015 OFFICE/OUTPATIENT VISIT EST Diagnosis: Chronic obstructive pulmonary disease, unspecified[ICD10: J44.9] Diagnosis: Muscle weakness (generalized)[ICD10: M62.81] Diagnosis: Polyneuropathy, unspecified[ICD10: G62.9] Diagnosis: Other intervertebral disc degeneration, 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] Diagnosis: Fibromyalgia[ICD10: M79.7] Belia DOMINGUEZ DO [facility] CPT-4: 80365 09/15/2015 ([id number]) OFFICE/OUTPATIENT VISIT EST Diagnosis: Disorientation, unspecified[ICD10: R41.0] Diagnosis: Headache[ICD10: R51] Diagnosis: Paresthesia of skin[ICD10: R20.2] Lidia REID DO [facility] CPT-4: 24274 08/24/2015 ([id number]) OFFICE/OUTPATIENT VISIT EST Diagnosis: Type 2 diabetes mellitus with hyperglycemia[ICD10: E11.65] Diagnosis: Chronic obstructive pulmonary disease with acute lower respiratory infection[ICD10: J44.0] Belia REID DO [facility] CPT-4: 44575 07/05/2015 ([id number]) OFFICE/OUTPATIENT VISIT EST Diagnosis: Mild intermittent asthma with (acute) exacerbation[ICD10: J45.21] Diagnosis: Chronic obstructive pulmonary disease, unspecified[ICD10: J44.9] Belia REID DO [facility] CPT-4: 52046 06/06/2015 ([id number]) OFFICE/OUTPATIENT VISIT EST Diagnosis: Chronic obstructive pulmonary disease with (acute) exacerbation[ICD10: J44.1] Lidia REID DO [facility] CPT- 4: 21926 05/23/2015 ([id number]) OFFICE/OUTPATIENT VISIT EST Diagnosis: Type 2 diabetes mellitus with hyperglycemia[ICD10: E11.65] Diagnosis: Functional dyspepsia[ICD10: K30] Belia REID DO [facility] CPT-4: 99952 05/05/2015 ([id number]) OFFICE/OUTPATIENT VISIT EST Diagnosis: Type 2 diabetes mellitus with hyperglycemia[ICD10: E11.65] Diagnosis: Glycosuria[ICD10: R81] Diagnosis: Urinary tract infection, site not specified[ICD10: N39.0] Belia REID DO [facility] CPT-4: 23156 03/30/2015 ([id number]) OFFICE/OUTPATIENT VISIT EST Diagnosis: Generalized abdominal pain[ICD10: R10.84] Diagnosis: Diarrhea, unspecified[ICD10: R19.7] Diagnosis: Urinary tract infection, site not specified[ICD10: N39.0] Diagnosis: Gastro-esophageal reflux disease without esophagitis[ICD10: K21.9] [facility]: 66412 02/03/2015 ([id number]) OFFICE/OUTPATIENT VISIT EST Diagnosis: Other specified noninflammatory disorders of vagina[ICD10: N89.8] Diagnosis: Follicular disorder, unspecified[ICD10: L73.9] Diagnosis: Functional dyspepsia[ICD10: K30] Diagnosis: FLU VACCINE[ICD10: Z23] Belia [facility] CPT-4: 19641 12/29/2014 ([id number]) OFFICE/OUTPATIENT VISIT EST 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] Diagnosis: RESTLESS LEGS SYNDROME[ICD9: 333.94] Diagnosis: MIGRAINE NOS/NOT INTRCBL[ICD9: 346.90] [facility] CPT-[facility]: 23049 09/02/2014 ([id number]) OFFICE/OUTPATIENT VISIT EST Diagnosis: Cervical radiculopathy[ICD9: 723.4] Diagnosis: Cervicalgia[ICD9: 723.1] Diagnosis: Degenerative disc disease, cervical[ICD9: 722.4] 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I[ICD9: 250.00] Belia [facility] CPT-4: 36136 04/01/2014 OFFICE/OUTPATIENT VISIT EST Diagnosis: Reactive airway disease[ICD9: 493.90] Belia [facility] CPT-4: 13226 03/16/2014 ([id number]) OFFICE/OUTPATIENT VISIT EST Diagnosis: BRONCHITIS, ACUTE[ICD9: 466.0] Diagnosis: Reactive airway disease[ICD9: 493.90] Belia [facility] CPT-4: 18122 03/09/2014 OFFICE/OUTPATIENT VISIT EST Diagnosis: BRONCHITIS, ACUTE[ICD9: 466.0] Diagnosis: WHEEZING[ICD9: 786.07] Huong Peguero [facility] CPT-4: 62477 03/03/2014 OFFICE/OUTPATIENT VISIT EST Diagnosis: BRONCHITIS, ACUTE[ICD9: 466.0] Diagnosis: WHEEZING[ICD9: 786.07] Huong Peguero [facility] CPT-4: 97806 03/01/2014 ([id number]) OFFICE/OUTPATIENT VISIT EST Diagnosis: GERD[ICD9: 530.81] Diagnosis: ARTHRALGIA-MULTIPLE SITES[ICD9: 719.49] Diagnosis: LUMB/LUMBOSAC DISC DEGEN[ICD9: 722.52] Diagnosis: - I - FIBROMYALGIA[ICD9: 729.1] Belia REID [facility] CPT-4: 54031 02/09/2014 ([id number]) OFFICE/OUTPATIENT VISIT EST Diagnosis: Peptic ulcer disease[ICD9: 533.90] Diagnosis: RESTLESS LEGS SYNDROME[ICD9: 333.94] Diagnosis: Neuropathy[ICD9: 355.9] Belia SM[facility] CPT-4: 61835 12/23/2013 ([id number]) OFFICE/OUTPATIENT VISIT EST Diagnosis: URINARY TRACT INFECTION[ICD9: 599.0] Belia REID [facility] CPT-4: 76965 10/30/2013 ([id number]) OFFICE/OUTPATIENT VISIT EST Diagnosis: Flank pain[ICD9: 789.00] Belia POP [facility] CPT-4: 85950 10/21/2013 ([id number]) OFFICE/OUTPATIENT VISIT EST Diagnosis: INFLAMED SEBORR KERATOS[ICD9: 702.11] Diagnosis: Brachioradial pruritus[ICD9: 698.9] Diagnosis: ASTHMA NOS[ICD9: 493.90] Belia POOLE [facility] CPT-4: 72407 10/05/2013 ([id number]) OFFICE/OUTPATIENT VISIT EST Diagnosis: HYPERTENSION[ICD9: 401.9] Diagnosis: - I - FIBROMYALGIA[ICD9: 729.1] Diagnosis: DIZZINESS/VERTIGO[ICD9: 780.4] Diagnosis: MIGRAINE NOS/NOT INTRCBL[ICD9: 346.90] Diagnosis: Diabetic peripheral neuropathy[ICD9: 250.60] Diagnosis: Flank pain[ICD9: 789.00] Belia BRUNSON Yuridia POP [facility] CPT-4: 17382 08/04/2013 ([id number]) OFFICE/OUTPATIENT VISIT EST Diagnosis: ALLERGIC RHINITIS[ICD9: 477.9] Belia BRUNSON Bushra Mayda [facility] CPT-4: 59863 07/13/2013 OFFICE/OUTPATIENT VISIT EST Diagnosis: URINARY TRACT INFECTION[ICD9: 599.0] Huong De LunaKp ARNOLD Yuridia [facility] CPT-4: 09535 07/03/2013 OFFICE/OUTPATIENT VISIT EST Diagnosis: HYPERTENSION[ICD9: 401.9] Diagnosis: URINARY TRACT INFECTION[ICD9: 599.0] Diagnosis: BACKACHE[ICD9: 724.5] Diagnosis: URINARY INCONTINENCE[ICD9: 788.30] Huong De LunaKp SALAZAR Yuridia [facility] CPT-4: 10115 05/27/2013 ([id number]) OFFICE/OUTPATIENT VISIT EST Diagnosis: Flank pain[ICD9: 789.00] Belia Zacharynilson BRUNSON BushraMayda KIESHA [facility] CPT-4: 36916 05/25/2013 ([id number]) OFFICE/OUTPATIENT VISIT EST Diagnosis: B-COMPLEX DEFIC NEC[ICD9: 266.2] Belia [facility]UNSON Bush[facility]da [facility]: 45056 05/04/2013 ([id number]) OFFICE/OUTPATIENT VISIT EST Diagnosis: ALLERGIC RHINITIS[ICD9: 477.9] Diagnosis: Vitamin B12 deficiency[ICD9: 266.2] Belia THOMPSON Yuridia [facility] CPT-4: 37763 04/17/2013 ([id number]) OFFICE/OUTPATIENT VISIT EST 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I[ICD9: 250.00] Diagnosis: URINARY TRACT INFECTION[ICD9: 599.0] Diagnosis: DIZZINESS/VERTIGO[ICD9: 780.4] Diagnosis: DIARRHEA[ICD9: 787.91] Belia HSUQUELINE S. ORENDE R [facility] CPT-4: 04592 04/06/2013 ([id number]) OFFICE/OUTPATIENT VISIT EST Diagnosis: URINARY TRACT INFECTION[ICD9: 599.0] Diagnosis: URINARY RETENTION[ICD9: 788.20] Belia REID DO [facility] CPT-4: 18528 11/10/2012 ([id number]) OFFICE/OUTPATIENT VISIT EST Diagnosis: TACHYCARDIA[ICD9: 785.0] Diagnosis: SYNCOPE AND COLLAPSE[ICD9: 780.2] Diagnosis: CONSCIOUSNS ALTERAT NEC[ICD9: 780.09] Belia REID [facility] CPT-4: 70971 09/02/2012 OFFICE/OUTPATIENT VISIT EST Diagnosis: TACHYCARDIA[ICD9: 785.0] Diagnosis: SYNCOPE AND COLLAPSE[ICD9: 780.2] Belia Humphriesnilson KOFFI Reggie TomlinsonMayda ANUSHKA [facility] CPT-4: 26721 08/04/2012 ([id number]) OFFICE/OUTPATIENT VISIT EST Diagnosis: Loss of consciousness[ICD9: 780.09] Diagnosis: Tachycardia[ICD9: 785.0] Diagnosis: MALAISE AND FATIGUE[ICD9: 780.79] Belia Humphriesbeckyannie CORNELLLIN Reggie REID [facility] CPT-4: 80485 07/21/2012 ([id number]) OFFICE/OUTPATIENT VISIT EST Diagnosis: BRONCHITIS, ACUTE[ICD9: 466.0] Diagnosis: ASTHMA NOS[ICD9: 493.90] Belia Humphriesnilson BELIA BushraMayda KIESHA VIRGILIO [facility] CPT-4: 65589 07/02/2012 ([id number]) OFFICE/OUTPATIENT VISIT EST Diagnosis: CEPHALGIA[ICD9: 784.0] Belia Humphriesnilson BELIA BushraMayda RALF Peguero [facility] CPT-4: 64159 06/25/2012 ([id number]) OFFICE/OUTPATIENT VISIT EST Diagnosis: GERD[ICD9: 530.81] Diagnosis: DIARRHEA[ICD9: 787.91] Diagnosis: URINARY TRACT INFECTION[ICD9: 599.0] Diagnosis: ASTHMA NOS[ICD9: 493.90] Diagnosis: ALLERGIC RHINITIS[ICD9: 477.9] Belia CORNELLLINE Bushra Mayda ANUSHKA [facility] CPT-4: 11239 06/24/2012 ([id number]) OFFICE/OUTPATIENT VISIT EST Diagnosis: MIGRAINE NOS/NOT INTRCBL[ICD9: 346.90] Diagnosis: TREMOR NEC[ICD9: 333.1] Diagnosis: CHRONIC PAIN SYNDROME[ICD9: 338.4] Beliahanna BASS MARIE BushraMayda ANUSHKA [facility] CPT-4: 64578 05/20/2012 ([id number]) OFFICE/OUTPATIENT VISIT EST Diagnosis: DIZZINESS/VERTIGO[ICD9: 780.4] Diagnosis: PALPITATIONS[ICD9: 785.1] Diagnosis: TREMOR NEC[ICD9: 333.1] Diagnosis: ANXIETY STATE NOS[ICD9: 300.00] Diagnosis: POSTTRAUMATIC STRESS DISORDER[ICD9: 309.81] Belia CORNELLLINE BushraMayda ANUSHKA [facility] CPT-4: 54770 05/08/2012 ([id number]) OFFICE/OUTPATIENT VISIT EST Diagnosis: MIGRAINE NOS/NOT INTRCBL[ICD9: 346.90] Diagnosis: FIBROMYALGIA[ICD9: 729.1] Diagnosis: SYNCOPE AND COLLAPSE[ICD9: 780.2] Diagnosis: Diabetic peripheral neuropathy[ICD9: 250.60] Belia CORNELLLINE BushraMayda ANUSHKA [facility] CPT-4: 68167 04/22/2012 OFFICE/OUTPATIENT VISIT EST Diagnosis: ROTATOR CUFF DIS NEC[ICD9: 726.19] Diagnosis: JOINT PAIN-SHLDER[ICD9: 719.41] Diagnosis: DYSPEPSIA[ICD9: 536.8] Belia BRUNSON BushraMayda ZACHARYBECKYReggie Peguero [facility] CPT-4: 44165 02/13/2012 ([id number]) OFFICE/OUTPATIENT VISIT EST Diagnosis: MIGRAINE NOS/NOT INTRCBL[ICD9: 346.90] Diagnosis: GERD[ICD9: 530.81] Diagnosis: DYSPEPSIA[ICD9: 536.8] Belia BRUNSON BushraMayda RALF [facility] CPT-4: 30110 01/28/2012 OFFICE/OUTPATIENT VISIT EST Diagnosis: CEPHALGIA[ICD9: 784.0] Diagnosis: MIGRAINE NOS/NOT INTRCBL[ICD9: 346.90] Diagnosis: GERD[ICD9: 530.81] Diagnosis: INSOMNIA NOS[ICD9: 780.52] Belia DOMINGUEZ [facility] CPT-4: 10394 12/26/2011 ([id number]) OFFICE/OUTPATIENT VISIT EST Diagnosis: CEPHALGIA[ICD9: 784.0] Diagnosis: MIGRAINE NOS/NOT INTRCBL[ICD9: 346.90] Diagnosis: MALAISE AND FATIGUE[ICD9: 780.79] Diagnosis: FIBROMYALGIA[ICD9: 729.1] Diagnosis: ALLERGIC RHINITIS[ICD9: 477.9] Belia Tomlinson Mayda ANUSHKA [facility] CPT-4: 14735 11/14/2011 ([id number]) OFFICE/OUTPATIENT VISIT EST Diagnosis: MALAISE AND FATIGUE[ICD9: 780.79] Diagnosis: MUSCLE WEAKNESS-GENERAL[ICD9: 728.87] Diagnosis: MIGRAINE NOS/NOT INTRCBL[ICD9: 346.90] Diagnosis: JOINT PAIN-SHLDER[ICD9: 719.41] Belia CORNELLLINE BushraMadya ANUSHKA [facility] CPT-4: 07803 09/12/2011 ([id number]) OFFICE/OUTPATIENT VISIT EST Diagnosis: CONCUSSION[ICD9: 850.9] Diagnosis: Ataxia[ICD9: 781.3] Diagnosis: DIZZINESS/VERTIGO[ICD9: 780.4] Belia Tomlinson Mayda ANUSHKA [facility] CPT-4: 24837 08/15/2011 ([id number]) OFFICE/OUTPATIENT VISIT EST Diagnosis: THROMBOPHLEBITIS[ICD9: 451.9] Diagnosis: Subacromial bursitis[ICD9: 726.19] Diagnosis: ALLERGIC RHINITIS[ICD9: 477.9] Diagnosis: Lipoma[ICD9: 214.9] Belia TomlinsonMayda ANUSHKA [facility] CPT-4: 96029 08/09/2011 ([id number]) OFFICE/OUTPATIENT VISIT EST Diagnosis: THROMBOPHLEBITIS[ICD9: 451.9] Diagnosis: Arm pain[ICD9: 729.5] Diagnosis: Clostridium difficile colitis[ICD9: 008.45] Diagnosis: URINARY TRACT INFECTION[ICD9: 599.0] [facility] 85332 07/03/2011 ([id number]) OFFICE/OUTPATIENT VISIT EST Diagnosis: ARTHRALGIA-MULTIPLE SITES[ICD9: 719.49] Diagnosis: Muscle cramp[ICD9: 729.82] Diagnosis: INSOMNIA NOS[ICD9: 780.52] [facility]: 48212 06/04/2011 OFFICE/OUTPATIENT VISIT EST Diagnosis: Headache[ICD9: 784.0] Diagnosis: Allergic rhinitis[ICD9: 477.9] Bel[facility] CPT-4: 26090 05/03/2011 OFFICE/OUTPATIENT VISIT EST Diagnosis: LUMB/LUMBOSAC DISC DEGEN[ICD9: 722.52] Diagnosis: MIGRAINE NOS/NOT INTRCBL[ICD9: 346.90] Diagnosis: CHRONIC PAIN SYNDROME[ICD9: 338.4] Diagnosis: RESTLESS LEGS SYNDROME[ICD9: 333.94] Belia Anushka CORNELL CLAYTON Yuridia [facility]: 41019 04/05/2011 OFFICE/OUTPATIENT VISIT EST Diagnosis: MIGRAINE NOS/NOT INTRCBL[ICD9: 346.90] Diagnosis: GERD[ICD9: 530.81] Belia [facility] CPT-4: 49569 03/08/2011 OFFICE/OUTPATIENT VISIT EST Diagnosis: URINARY TRACT INFECTION[ICD9: 599.0] Diagnosis: Vertigo[ICD9: 780.4] Diagnosis: GERD[ICD9: 530.81] [facility]: 67292 01/24/2011 OFFICE/OUTPATIENT VISIT EST Diagnosis: Hypotension[ICD9: 458.9] Diagnosis: Syncopal episodes[ICD9: 780.2] Diagnosis: MIGRAINE NOS/NOT INTRCBL[ICD9: 346.90] Diagnosis: MALAISE AND FATIGUE[ICD9: 780.79] Belia Zacharynilson Paredes Yuridia [facility]: 11989 01/02/2011 OFFICE/OUTPATIENT VISIT EST Diagnosis: Tinea cruris[ICD9: 110.3] Diagnosis: Intertrigo[ICD9: 695.89] Diagnosis: MIGRAINE NOS/NOT INTRCBL[ICD9: 346.90] Belia Smithannie SONJA JOHN PAUL SMayda [facility] CPT-4: 60440 12/07/2010 OFFICE/OUTPATIENT VISIT EST Diagnosis: PALPITATIONS[ICD9: 785.1] Diagnosis: ANXIETY STATE NOS[ICD9: 300.00] Belia Zacharybeckyannie BELIA SMayda [facility] CPT-4: 86905 11/16/2010 OFFICE/OUTPATIENT VISIT EST Diagnosis: URINARY TRACT INFECTION[ICD9: 599.0] Diagnosis: MIGRAINE NOS/NOT INTRCBL[ICD9: 346.90] Iraida CASILLAS UELINE S. [facility] DO [facility] CPT-4: 21724 11/02/2010 OFFICE/OUTPATIENT VISIT EST Diagnosis: ALLERGIC RHINITIS[ICD9: 477.9] Diagnosis: ANXIETY STATE NOS[ICD9: 300.00] Belia BRUNSON SMayda [facility] DO [facility] CPT-4: 37993 10/18/2010 OFFICE/OUTPATIENT VISIT EST Belia Zacharybeckyannie CORNELLBELIA SMayda ORE NDER DO [facility] CPT- 4: 03848 09/19/2010 OFFICE/OUTPATIENT VISIT EST Belia Zacharybeckyannie CORNELLBELIA [facility] CPT- 4: 21190 09/06/2010 ([id number]) OFFICE/OUTPATIENT VISIT EST Belia Zacharybeckyannie HSUQ ULUBNA S[facility] CPT-4: 97668 08/10/2010 ([id number]) OFFICE/OUTPATIENT VISIT EST Belia Smithannie SONJA ULUBNA S. ORENDER DO [facility] CPT-4: 48434 05/11/2010 ([id number]) OFFICE/OUTPATIENT VISIT, EST Belia HSU ROBERTOCLAYTON S[facility] CPT-4: 39090 04/06/2010 ([id number]) OFFICE/OUTPATIENT VISIT, EST Belia DELGADO S[facility] CPT-4: 92539 02/09/2010 ([id number]) OFFICE/OUTPATIENT VISIT, EST Belia DELGADO SMayda [facility] CPT-4: 44934 01/05/2010 ([id number]) OFFICE/OUTPATIENT VISIT, EST Belia DELGADO SMayda [facility] CPT-4: 90169 12/07/2009 ([id number]) OFFICE/OUTPATIENT VISIT, EST Belia DELGADO S. [facility] CPT-4: 89905 11/08/2009 ([id number]) OFFICE/OUTPATIENT VISIT, EST Belia DELGADO SMayda [facility] CPT-4: 55911 10/24/2009 ([id number]) OFFICE/OUTPATIENT VISIT, EST Belia DELGADO SMayda [facility] CPT-4: 12748 07/25/2009 ([id number]) OFFICE/OUTPATIENT VISIT, EST Belia [facility]O [facility]da [facility] CPT-4: 42257 05/26/2009 Plan of Care Planned Activity Notes Codes Status Date Visit Diagnosis Plan: Colitis Discussion: Flagyl plus cipro to cover for both colitis and UTI Notify or to ER if worsening ICD-9 : 558.9 ICD-10 : K52.9 05/26/2019 Visit Diagnosis Plan: Acute febrile illness Discussion : Notify if worsens ICD-9 : 780.60 ICD-10 : R50.9 05/26/2019 Appointment: Pattie Sotomayor [address] [place] [address] RESCHEDULED 05/18/2019 Visit Diagnosis Plan: Chronic obstructive pulmonary di sease, unspecified Discussion: Recommend pulmonary rehab Patient states she never went to pulmonary rehab due to cost as well as transportation issues Finish trelagy Stop singulair Decrease hydroxyzine to 25mg po q HS Fwup [address] scan of Chest results discussed ICD-9 : 496 ICD-10 : J44.9 05/13/2019 Appointment: Belia Reid WPtel: [phone] Hospital Follow Up 05/13/2019 Visit Diagnosis Plan: COUGH Discussion: Check CT scan of chest ICD-9 : 786.2 ICD-10 : R05 05/06/2019 Visit Diagnosis Plan: Stridor Discussion: Add Trelagy 1 p daily Add Singulair May need to see new senior qa tester ICD-9 : 786.1 ICD-10 : R06.1 05/06/2019 Appointment: Belia Reid WPtel: [address] [place] [address] FOLLOW UP 05/06/2019 Patient Education: Singulair- [employer] Coupon [id number] [email or web address]/[email or web address]/resources/getResource/61/[email or web address]-ui Completed 05/06/2019 Appointment: Belia Reid WPtel: [address] [place] [address] US RESCHEDULED 04/30/2019 Visit Diagnosis Plan: Stridor [...] : G25.5 04/29/2019 Appointment: Belia Reid WPtel: [address] [place] [address] Hospital Follow Up 04/29/2019 Patient Education: Valium- [employer] Coupon [id number] https://www.Spout/[email or web address]/resources/getResource/61/[email or web address] Completed 04/29/2019 Visit Diagnosis Plan: Flank pain [...] : R63.5 04/16/2019 Appointment: Pattie Sotomayor [address] [facility] ACUTE ILLNESS 04/16/2019 Patient Education: cyclobenzaprine- OptimizeRX [place] [id number] https://[email or web address].LeadFire/samplemd/resources/getResource/61/[email or web address]-[email or web address] Completed 04/16/2019 Visit Diagnosis Plan: Migraine, unspecif ied, not intractable, without status migrainosus Discussion: Increase gabapentin to 600mg po BID ICD-9 : 346.90 ICD-10 : G43.909 04/08/2019 Visit Diagnosis Plan: Generalized pruritus Discussion: Hydroxyzine 25mg po TID for itching and anxiety ICD-9 : 698.9 ICD-10 : L29.9 04/08/2019 Appointment: Belia Reid WPtel: [address] [place] [address] ACUTE ILLNESS 04/08/2019 Visit Diagnosis Plan: Cervicalgia [...] : M75.52 01/22/2019 Appointment: Belia Reid WPtel: [address] [place] [address] Hospital Follow Up 01/22/2019 Visit Diagnosis Plan: Abdominal pain Discussion: urine culture sent to assess for any infection. rocephin given in office to cover for pyelonephritis. instructed to push fluids. call office with any new or worsening symptoms. ICD-9 : 789.00 ICD-10 : R10.9 01/07/2019 Appointment: Pattie Sotomayor [address] [facility] ACUTE ILLNESS 01/07/2019 Visit Diagnosis Plan: Low back pain Discussion: Stat C T of abdomen/pelvis now ICD-9 : 724.2 ICD-10 : M54.5 12/24/2018 Appointment: Belia Reid WPtel: [address] [place] [address] US FOLLOW UP 12/24/2018 Visit Diagnosis Plan: [...] : M79.7 11/20/2018 Appointment: Belia Reid WPtel: [address] [place] [address] ACUTE ILLNESS 11/20/2018 Patient Education: baclofen- [employer] Coupon [id number] https://www.FTRANS.com/samplemd/resources/getResource/61/[email or web address]-[email or web address] Completed 11/20/2018 Visit Diagnosis Plan: Migraine, unspecif ied, intractable, without status migrainosus Discussion: toradol/phenergan given in o ffice (60 mg toradol, 12.5 mg phenergan). instructed to call if no improvement or worsening. instructed to follow up with unishear operator since headaches are occurring more frequently to make sure vision is not the cause. ICD-9 : 346.91 ICD-10 : G43.919 11/04/2018 Visit Diagnosis Plan: Acute sinusitis, unspecified Dis cussion: zithromax prescribed to cover for sinus infection due to length of symptoms and clinincal s/s. ICD-9 : 461.9 ICD-10 : J01.90 11/04/2018 Appointment: Pattie Sotomayor [address] [place] [address] ACUTE ILLNESS 11/04/2018 Appointment: Belia Reid WPtel: [address] [place] [address] US CANCELED 09/24/2018 Visit Diagnosis Plan: Type 2 diabetes me llitus with diabetic neuropathy, unspecified Discussion: Retry gabapentin 300mg po q HS ICD-9 : 250.60 ICD-10 : E11.40 09/18/2018 Visit Diagnosis Plan: Vitamin D deficiency, unspecifie d Discussion: Increase Vitamin D3 to 10,000 u daily ICD-9 : 268.9 ICD-10 : E55.9 09/18/2018 Visit Diagnosis Plan: Encounter for [facility] adult medical examination without abnormal findings Discussion: [...] I10 09/18/2018 Appointment: Belia Reid WPtel: [phone] [id number] Annual Well Visit 09/18/2018 Patient Education: gabapentin- [employer] Coupon [id number] [email or web address] Completed 09/18/2018 Visit Diagnosis Plan: Pain in [...] ICD-10 : M54.89 09/08/2018 Appointment: Pattie Sotomayor [address] [place], [place] [id number] ACUTE ILLNESS 09/08/2018 Patient Education: prednisone- [employer] Coupon [id number] [phone] [email or web address] Completed 09/08/2018 Visit Diagnosis Plan: Pruritus, unspecified [...] : E10.9 08/20/2018 Appointment: Belia Reid WPtel: [address] [place] [address] ACUTE ILLNESS 08/20/2018 Patient Education: Lexapro- [employer] Coupon [id number] Completed 08/20/2018 Patient Education: hydroxyzine HCl- [employer] Coupon [id number] Completed 08/20/2018 Care Plan: MAMMOGRAM SCREENING [facility] : [phone] Pending 08/20/2018 Visit Diagnosis Plan: Paroxysmal atrial fibrillation D iscussion: Discuss eliquis need with cardiology at [facility] due to cost ICD-9 : 427.31 ICD-10 : I48.0 06/19/2018 Visit Diagnosis Plan: Hypotension due to drugs Discuss ion: Discussed decreasing cardizem dose due to low BP and edema but sees cardiology next week Follow Up: 1 months ICD-9 : 458.8 ICD-10 : I95.2 06/19/2018 Appointment: Belia Reid WPtel: [facility] [address] FOLLOW UP 06/19/2018 Visit Diagnosis Plan: [...] : R61 06/09/2018 Appointment: Belia Reid WPtel: [address] [place] [address] [place] FOLLOW UP 06/09/2018 Care Plan: CHEST X-RAY 2VW FRONTAL&LATL LOINC : 85572-8 Pending 05/26/2018 Visit Diagnosis Plan: Supraventricular tachycardia [...] : R53.1 05/21/2018 Appointment: Belia Reid WPtel: [address] [place] [address] Hospital Follow Up 05/21/2018 Visit Diagnosis Plan: Cervical disc diso rder with radiculopathy, unspecified cervical region Discussion: Scheduled for surgery on 06/02 10/[address] Faulkner ICD-9 : 722.0 ICD-10 : M50.10 04/16/2018 Appointment: Belia Reid WPtel: [address] [place] [address] Hospital Follow Up 04/16/2018 Visit Diagnosis Plan: [...] ICD-10 : G43.919 04/01/2018 Appointment: Pattie Sotomayor [address] [place] [address] ACUTE ILLNESS 04/01/2018 Appointment: Belia Reid WPtel: [address] [place] [address] 03/17/2018 Visit Diagnosis Plan: Chronic obstructiv e [...] : E11.65 03/06/2018 Appointment: Belia Reid WPtel: [facility] Hospital Follow Up 03/06/2018 Visit Diagnosis Plan: Cervicalgia Discussion: spoke wi dr. reid about patient. increased gabapentin to bid and started on celebrex bid. tramadrol rx written out to take prn. keep scheduled appt next week for myelogram. ICD-9 : 723.1 ICD-10 : M54.2 02/05/2018 Appointment: Pattie Sotomayor [address] [place] [address] ACUTE ILLNESS 02/05/2018 Care Plan: X-RAY EXAM NECK SPINE 4/5VWS cervical LOINC : 47203-5 Pending 01/21/2018 Visit Diagnosis Plan: Candidiasis of [...] ICD-10 : M54.2 01/20/2018 Appointment: Pattie Sotomayor [address] [place] [address] ACUTE ILLNESS 01/20/2018 Visit Diagnosis Plan: Pain in thoracic spine Discussio n: Proceed with CT scan of thoracic spine Will likely need PT ICD-9 : 724.1 ICD-10 : M54.6 12/25/2017 Appointment: Belia Reid WPtel: [address] [place] [address] FOLLOW UP 12/25/2017 Care Plan: CT THORAX W/O DYE LOINC : 473 66-0 Pending 12/25/2017 Visit Diagnosis Plan: Pain in thoracic spine Discussio n: Stretches Alternated heat/ice Topical aspercreme with lidocaine Flexeril Recheck 1 week Flu and Pneumovax given ICD-9 : 724.1 ICD-10 : M54.6 12/17/2017 Appointment: Belia Reid WPtel: [address] [place] [address] ACUTE ILLNESS 12/17/2017 Patient Education: Patient Medication [...] : J44.1 10/30/2017 Appointment: Belia Reid WPtel: [facility] [place] [address] US FOLLOW UP 10/30/2017 Patient Education: Patient Medication Summary Completed 10/30/2017 Visit Diagnosis Plan: Chronic obstructiv e pulmonary disease with acute lower respiratory infection Discussion: Continue SVNs with albuterol q4hrs Add Trelagy 1 inhalation daily Finish steroids Increase water intake Follow Up: 1 weeks ICD-9 : 496 ICD-10 : J44.0 10/23/2017 Appointment: Belia Reid WPtel: [address] [place], [place] [phone] WORK IN 10/23/2017 Patient Education: Patient Medication Summary Completed 10/23/2017 Appointment: Belia Reid WPtel: [address] [place] [address] NO SHOW 10/16/2017 Visit Diagnosis Plan: Confusional [...] ICD-10 : E11.65 09/17/2017 Appointment: Belia Reidtel: [address] [place] [address] Annual Well Visit 09/17/2017 Patient Education: Patient Medication Summary Completed 09/17/2017 Appointment: Belia Reidtel: [address] [place], [place] [phone] [place] INJECTION 08/26/2017 Patient Education: Patient Medication Summary Completed 08/26/2017 Appointment: Belia Reidtel: [address] [place], [place] [phone] CANCELED 07/31/2017 Visit Diagnosis Plan: Encounter for [...] ICD-10 : J20.9 07/19/2017 Appointment: Pattie Sotomayor [address] [place] [address] ACUTE ILLNESS 07/19/2017 Patient Education: Patient Medication Summary Completed 07/19/2017 Care Plan: MAMMOGRAM SCREENING LOINC : 2 6347-5 Pending 07/19/2017 Patient Education: Patient Medication Summary Completed 06/05/2017 Care Plan: LIPID PANEL LOINC : 74797-3 Pending 06/05/2017 Care Plan: A1C HPLC LOINC : 12840-1 Pending 06/05/2017 Visit Diagnosis Plan: Rash and [...] ICD-10 : R21 05/29/2017 Appointment: Pattie Sotomayor [address] [place], [place] [address]a [facility] FOLLOW UP 05/29/2017 Patient Education: Patient Medication Summary Completed 05/29/2017 Visit Diagnosis Plan: Tinea corporis Discussion: Diflu can and topical nystatin Follow Up: 2 weeks ICD-9 : 110.5 ICD-10 : B35.4 05/07/2017 Visit Diagnosis Plan: Diarrhea, unspecified Discussion : Diflucan Cholestyramine Recheck 2weeks ICD-9 : 787.91 ICD-10 : R19.7 05/07/2017 Appointment: Belia Reid WPtel: [address] [place] [address] US FOLLOW UP 05/07/2017 Patient Education: Patient Medication Summary Completed 05/07/2017 Appointment: Belia Reid WPtel: [address] [place], [place] [phone] [place] RESCHEDULED 04/30/2017 Visit Diagnosis Plan: Chronic obstructiv e pulmonary disease with (acute) exacerbation Discussion: Finish prednisone Continue S VNS with albuterol ICD-9 : 491.21 ICD-10 : J44.1 03/18/2017 Visit Diagnosis Plan: Stridor Discussion: Increase Ati van 0.5mg po to TID routinely for next week then can go back to prn ICD-9 : 786.1 ICD-10 : R06.1 03/18/2017 Appointment: Belia Reid WPtel: [address] [place] [address] ER Follow UP 03/18/2017 Patient Education: Patient [...] : E11.65 02/27/2017 Appointment: Belia Reid WPtel: [address] [place], [place] [phone] [place] FOLLOW UP 02/27/2017 Patient Education: Patient [...] ICD-10 : E11.65 02/22/2017 Appointment: Pattie Sotomayor [address] [place], [place] [phone] ACUTE ILLNESS 02/22/2017 Patient Education: Patient Medication [...] : J18.9 01/23/2017 Appointment: Belia Reid WPtel: [address] [place] [address] ER Follow UP 01/23/2017 Patient Education: Patient Medication Summary Completed 01/23/2017 Appointment: Pattie Sotomayor [address] [place], [place] [phone] [place] CANCELED 01/17/2017 Appointment: Pattie Sotomayor [address] [place] [address] Annual Well Visit 01/14/2017 Visit Diagnosis Plan: Type 2 diabetes mellitus with hy perglycemia Discussion: Check CMP, HbA1C Flu shot and Prevnar 13 given Follow Up: 3 months ICD-9 : 250.02 ICD-10 : E11.65 12/20/2016 Visit Diagnosis Plan: Localized edema Discussion: Low Na diet Compression socks/Elevate feet ICD-9 : 782.3 ICD-10 : R60.0 12/20/2016 Appointment: Belia Reid WPtel: [address] [place] [address] US FOLLOW UP 12/20/2016 Patient Education: Patient Medication Summary Completed 12/20/2016 Patient Education: Patient Medication Summary Completed 10/10/2016 Visit Plan: Xrays of cervical, thoracic and lumbar spine at [facility] for Mobic (stop NSAIDS except Tylenol) and Flexeril UA sent for C&S Using SVN Call in 2-3 days if pain not improved or any worsening 10/08/2016 Appointment: Celeste Ferreira WPtel: [address] [place], [place] [address] ACUTE ILLNESS 10/08/2016 Patient Education: Patient Medication [...] : E11.65 09/19/2016 Appointment: Belia Reid WPtel: [address] [place] [id number] 09/18 confirmed`sl FOLLOW UP 09/19/2016 Patient Education: [...] : R10.84 08/20/2016 Appointment: Belia Reid WPtel: [address] [place] [phone] 08/16 confirmed~sl FOLLOW UP 08/20/2016 Patient Education: [...] : J44.9 06/19/2016 Appointment: Belia Reid WPtel: [address] [place], [place] [phone] 06/18 confirmed ~ Hospital Follow Up [...] : Z87.440 06/04/2016 Appointment: Belia Reid WPtel: [address] [place], [place] [phone] 06/01 confirmed~sl FOLLOW UP 06/04/2016 Patient Education: [...] : R06.1 05/02/2016 Appointment: Belia Reid WPtel: [address] [place], [place] [phone] 05/01 confirmed [facility] Hospital Follow Up 05/02/2016 Patient Education: [...] : N39.0 04/03/2016 Appointment: Belia Reid WPtel: [address] [place] [address] 04/02 confirmed~ Hospital Follow Up 04/03/2016 Patient Education: Patient Medication Summary Completed 04/03/2016 Visit Plan: Lungs are clear Her symptoms and exam are all upper airway restriction/constriction Can try supportive care Rx as above Follow up PRN 02/29/2016 Appointment: Lidia Hwang [address] [place] [address] ACUTE ILLNESS 02/29/2016 Patient Education: Patient Medication Summary Completed 02/29/2016 Visit Plan: Toradol/Phenergan today for Migraine Change to Clindamycin to cover lactobacillus for UTI Cover with flagyl due to hx of C. Diff 02/02/2016 Appointment: Belia Reid WPtel: [address] [place] [address] 01/31 confirmed` ACUTE ILLNESS 02/02/2016 Patient Education: Patient Medication Summary Completed 02/02/2016 Visit Plan: Increase neurontin to 300mg q AM and 600mg q PM Discussed neurology re-evaluation Flu shot given Need to check on Pneumonia shot Rx written out for albuterol 01/05/2016 Appointment: Belia Reid WPtel: [address] [place] [id number] 01/03 confirmed ~sl Annual Well Visit 01/05/2016 Patient Education: Patient Medication Summary Completed 01/05/2016 Visit Plan: Cipro Culture urine hydrate Flexeril refilled Alternate heat and ice for back Increase gabapentin to 300mg po BID Notify if worsens 12/05/2015 Appointment: Belia Reid WPtel: [address] [place], [place] [phone] 11/30 confirmed~sl ACUTE ILLNESS 12/05/2015 Patient Education: Patient Medication Summary Completed 12/05/2015 Patient Education: Patient Medication Summary Completed 10/27/2015 Care Plan: COMPREH[place] : 11778-9 Pending 10/27/2015 Care Plan: A1C HPLC LOINC : 31265-4 Pending 10/27/2015 Visit Plan: Lungs are CTA today and is f eeling improved overall Finish meds as ordered Continue inhalers and neb treatments Discussed migraine treatment options She does not feel she needs anything additional added today Refill of Januvia sent since no samples are available today 10/26/2015 Appointment: Lidia Hwang [address] [facility] Hospital Follow Up 10/26/2015 Appointment: Lidia Hwang [address] [place], [place] [phone] CANCELED 10/26/2015 Patient Education: Patient Medication Summary Completed 10/26/2015 Patient Education: Januvia - 18+ - KENNETH - No [place] Completed 10/26/2015 Visit Plan: Office dip still abnormal Cu lture pending Switch to cipro - stop macrobid Push fluids - avoid caffeine Will call with culture results when available Follow up if worsening 10/05/2015 Appointment: Lidia Hwang [address] [facility]6[address] ER Follow UP 10/05/2015 Patient Education: Patient Medication Summary Completed 10/05/2015 Visit Plan: Proceed with PT for document ation of ROM and strength of all extremities Proceed with Power Mobility Device Trial of neurontin 300mg q HS--lyrica helped but patient unable to afford Recheck 1month 09/15/2015 Appointment: Belia Reid WPtel: [facility] 09/13 confirmed~sl SPECIAL 09/15/2015 Patient Education: Patient Medication Summary Completed 09/15/2015 Visit Plan: Fille out Loan Discharge Pap erwork for total and permanent disability 08/25/2015 Patient Education: Patient Medication Summary Completed 08/25/2015 Visit Plan: Discussed with Dr Anushka Haywood at CT of head Will get last date of carotid doppler from her assistant oceanographer and update if needed 08/24/2015 Appointment: Lidia Hwang [address] [facility] 08/22 confirmed~sl ACUTE ILLNESS 08/24/2015 Patient Education: Patient Medication Summary Completed 08/24/2015 Patient Education: Patient Medication Summary Completed 08/24/2015 Care Plan: US EXAM OF HEAD AND NECK carotid Ultrasound LOIN C : 58228-8 Pending 08/24/2015 Visit Plan: Long discussion about diet A ccuchecks daily Check HbA1C, CMP Change requip to mirapex 07/05/2015 Appointment: Belia Reid WPtel: [address] [place], [place] [phone] 07/03 confirmed ~sl FOLLOW UP 07/05/2015 Patient Education: Patient Medication Summary Completed 07/05/2015 Visit Plan: Add Breo ellipta 100 1 p BID Continue SVNs with duoneb QID 06/06/2015 Appointment: Belia Reid WPtel: [address] [place] [address] Patient is calling for a ride, then [...] not improving 05/23/2015 Appointment: Huong Osborne WPtel: [address] [place], [place] [phone] ACUTE ILLNESS 05/23/2015 Appointment: Jaiden Lidia [address] [place] [address] ER Follow UP 05/23/2015 Patient Education: Patient Medication Summary Completed 05/23/2015 Visit Plan: Check pancreatic enzymes and US of pancreas as patient can't understand why she has diabetes since has no family history Discussed weight, diet, exercise all play an important role in diabetes and are risk factors as well Continue Januvia and accuchecks daily 05/05/2015 Appointment: Belia Reid WPtel: [address] [place], [place] [phone] FOLLOW UP 05/05/2015 Patient Education: Patient Medication Summary Completed 05/05/2015 Care Plan: US EXAM ABDOM COMPLETE LOINC : 61417-8 Ordered 05/05/2015 Visit Plan: Start Januvia 100mg daily [place] with diflucan and culture urine Accuchecks daily alternating times Recheck 6weeks 03/30/2015 Appointment: Belia Reid WPtel: [address] [place], [place] [phone] 03/29 confirmed~lb FOLLOW UP 03/30/2015 Patient Education: Patient Medication Summary Completed 03/30/2015 Appointment: Belia Reid WPtel: [address] [place], [place] [phone] 03/01 needs reschedule due to payment and insurance ~sl FOLLOW UP 03/02/2015 Visit Plan: Patient was just in ER last night so has not filled scripts yet Start Carafate and Flagyl and Cipro Add Hyophen 1 po BID Recheck 1mo 02/03/2015 Appointment: Belia Reid WPtel: [address] [place], [place] [phone] 02/02lm ~sl...02/03/15 appt confirmed cn ACUTE I LLNESS 02/03/2015 Patient Education: Patient Medication Summary Completed 02/03/2015 Visit Plan: Warm soaks to vaginal area K elex and Diflucan and observe Zofran to use prn 12/29/2014 Appointment: Belia Reid WPtel: [address] [place], [place] [phone] 12/28 Confirmed ~ ACUTE ILLNESS 12/29/2014 Patient Education: Patient Medication Summary Completed 12/29/2014 Appointment: Huong Osborne WPtel: [address] [place], [place] [phone] FOLLOW UP 09/24/2014 Appointment: Belia Reid WPtel: [address] [place], [place] [phone] 09/15 confirmed -mf FOLLOW UP 09/16/2014 Visit Plan: Increase requip to 2mg po BI D Increase lyrica to 225mg total a day by adding an extra 75mg in AM Recheck in 2weeks Continue to patch left eye while sleeping 09/02/2014 Appointment: Belia Reid WPtel: [address] [place], [place] [phone] 09/01 appt confirmed Hospital Follow Up 09/02 Patient Education: Patient Medication Summary Completed 09/02/2014 Visit Plan: To [facility] for observat ion to R/O CVA 08/25/2014 Appointment: Huong Osborne WPtel: [address] [place], [place] [phone] ACUTE ILLNESS 08/25/2014 Patient Education: Patient Medication Summary Completed 08/25/2014 Referral: Aaron Jonas WPtel: [facility] [address] [place] location Initiated 04/26/2014 Referral: [facility]rinivas[facility]el[id number] Ref[facility] Initiated 04/20/2014 Appointment: Belia Reid WPtel: [address] [place], [place] [phone] ER Follow UP 04/01/2014 Patient Education: Patient Medication Summary Completed 04/01/2014 Care Plan: MYELOGRAPHY NECK SPINE LOINC : 56510-0 Ordered 04/01/2014 Visit Plan: Continue Symbicort 160 at 2p BID Continue SVNs with duoneb at least QID Finish Levaquin Recheck 1mo on lyrica 03/16/2014 Appointment: Belia Reid WPtel: [address] [place] [id number] 03/15 voicemail FOLLOW UP 03/16/2014 Patient Education: Patient Medication Summary Completed 03/16/2014 Visit Plan: Restart SVNs with duoneb QID Repeat prednisone Levaquin Continue symbicort Keep lyrica at same dose Recheck 1week 03/09/2014 Appointment: Belia Reid WPtel: [address] [place], [place] [phone] FOLLOW UP 03/09/2014 Patient Education: Patient Medication Summary Completed 03/09/2014 Appointment: Belia Reid WPtel: [address] [place], [place] [phone] 03/03 showed up 15 minutes late for appt -- put her on Huong's side for 10:45am FORGIVEN PER DR FOLLOW UP 03/03/2014 Appointment: Huong Osborne WPtel: [address] [place], [place] [phone] FOLLOW UP 03/03/2014 Patient Education: Patient Medication Summary Completed 03/03/2014 Appointment: Huong Osborne WPtel: [address] [place], [place] [id number] ER Follow UP 03/01/2014 Patient Education: Patient Medication Summary Completed 03/01/2014 Visit Plan: Add carafate for this next m onth Increase lyrica to 150mg q HS 02/09/2014 Appointment: Belia Reid WPtel: [address] [place], [place] [phone] Hospital Follow Up 02/09/2014 Patient Education: Patient Medication Summary Completed 02/09/2014 Visit Plan: Increase omeprazole back to 40mg po BID Use requip in AM and add lyrica 75mg q HS Recheck 1mo 12/23/2013 Appointment: Belia Reid WPtel: [address] [place], [place] [phone] FOLLOW UP 12/23/2013 Patient Education: Patient Medication Summary Completed 12/23/2013 Patient Education: Patient Medication Summary Completed 12/04/2013 Appointment: Belia Reid WPtel: [address] [place], [place] [phone] UA 10/30/2013 Patient Education: Patient Medication Summary Completed 10/30/2013 Appointment: Belia Reid WPtel: [address] [place], [place] [phone] UA 10/21/2013 Patient Education: Patient Medication Summary Completed 10/21/2013 Visit Plan: Cryotherapy as above TAC and hydroxyzine to use prn to itching spots and itching SKs Add Advair HFA 115/21 1 p BID 10/05/2013 Appointment: Belia Reid WPtel: [address] [place] [address] 10/01 pt called and confirmed ACUTE ILLNESS Patient Education: Patient Medication Summary Completed 10/05/2013 Appointment: Belia Reid WPtel: [address] [place], [place] [phone] will pay copay and part of past balance FOLLOW U P 08/04/2013 Patient Education: Patient Medication Summary Completed 08/04/2013 Appointment: Belia Reid WPtel: [address] [place], [place] [phone] [place] INJECTION 07/13/2013 Patient Education: Patient Medication Summary Completed 07/13/2013 Appointment: Huong Osborne WPtel: [address] [place], [place] [phone] ACUTE ILLNESS 07/03/2013 Patient Education: Patient Medication Summary Completed 07/03/2013 Visit Plan: Cipro and culture urine 05/27/2013 Appointment: Huong Osborne WPtel: [address] [place], [place] [phone] 05/26 confirmed appt and 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 FOLLOW UP 05/27/2013 Patient Education: Patient Medication Summary Completed 05/27/2013 Appointment: Belia Reid WPtel: [address] [place], [place] [phone] [place] UA 05/25/2013 Patient Education: Patient Medication Summary Completed 05/25/2013 Appointment: Belia Reid WPtel: [address] [place], [place] [phone] US INJECTION 05/04/2013 Patient Education: Patient Medication Summary Completed 05/04/2013 Appointment: Belia Reid WPtel: [address] [place], [place] [phone] US INJECTION 04/17/2013 Patient Education: Patient Medication Summary Completed 04/17/2013 Appointment: Belia Reid WPtel: [address] [place], [place] [phone] US INJECTION 04/15/2013 Appointment: Belia Reid WPtel: [address] [place], [place] [phone] 04/02 vm FOLLOW UP 04/06/2013 Patient Education: Patient Medication Summary Completed 04/06/2013 Visit Plan: Obtain lab results including UA from [facility] 11/10/2012 Appointment: Belia Reid WPtel: [address] [place] [address] ER Follow UP 11/10/2012 Patient Education: Patient Medication Summary Completed 11/10/2012 Appointment: Belia Reid WPtel: [address] [place], [place] [phone] 10/30/12 patient canceled appt due to fin ances. Offered to work something out, patient declined-LB FOLLOW UP 11/05/2012 Visit Plan: Continue Bystolic at current dose Pt has fwup with Neurology on September 16 09/02/2012 Appointment: Belia Reid WPtel: [address] [place], [place] [phone] FOLLOW UP 09/02/2012 Patient Education: Patient Medication Summary Completed 09/02/2012 Visit Plan: Continue bystolic at 5mg crhis ly Sees Neurology tomorrow Use oxygen at bedtime 08/04/2012 Appointment: Belia Reid WPtel: [address] [place] [address] FOLLOW UP 08/04/2012 Patient Education: Patient Medication Summary Completed 08/04/2012 Appointment: Belia Reid WPtel: [address] [place] [address] Hospital fwup for 07/21/12. merged appointments FOLLOW UP 07/24/2012 Visit Plan: Start Bystolic 5mg daily for tachycardia Fwup with neurology for further workup Overnight O2 sat 07/21/2012 Appointment: Belia Reidtel: [address] [place] [address] Hospital Follow Up 07/21/2012 Patient Education: Patient Medication Summary Completed 07/21/2012 Visit Plan: SVN with Albuterol QID Add A velox 400mg daily Notify if worsens or persists 07/02/2012 Appointment: Belia Reid WPtel: [address] [place], [place] [phone] ACUTE ILLNESS 07/02/2012 Patient Education: Patient Medication Summary Completed 07/02/2012 Appointment: Belia Reidtel: [address] [place] [address] INJECTION 06/25/2012 Patient Education: Patient Medication Summary Completed 06/25/2012 Appointment: Belia Reid WPtel: [address] [place], [place] [phone] FOLLOW UP 06/24/2012 Patient Education: Patient Medication Summary Completed 06/24/2012 Appointment: Belia Reidtel: [address] [place] [phone] 05/19 left message FOLLOW UP 05/20/2012 Patient [...] 10mg po TID 05/08/2012 Appointment: Belia Reidtel: [address] [place], [place] [phone] ACUTE ILLNESS 05/08/2012 Patient Education: Patient Medication Summary Completed 05/08/2012 Visit Plan: Continue current meds Contin ue lower dose on pain meds and Diazepam Still waiting on paperwork for botox for Migraines Will restart Neurontin at 600mg po q HS Pt going to stop Depakote due to can't afford 04/22/2012 Appointment: Belia Reidtel: [address] [place] [phone] 04/21 [facility] Follow Up 04/22/2012 Patient Education: Patient Medication Summary Completed 04/22/2012 Visit Plan: Injection to shoulder as abo ve Continue current meds Has appointment with neurology on HAs in 02/13/2012 Appointment: Belia Reid WPtel: [address] [place], [place] [phone] Pt does not have $10 copay at [facility] t time - will bring it in next week. Kianna iqbal'ed this. - [place] FOLLOW UP 02/13/2012 Patient Education: Patient Medication Summary Completed 02/13/2012 Visit Plan: Proceed with headache specia list Change nexium to Protonix Phenergan to use prn Sumatriptan to use prn Pt still on Inderal 01/28/2012 Appointment: Belia Reidtel: [address] [place] [address] ER Follow UP 01/28/2012 Patient Education: Patient [...] for sleep 12/26/2011 Appointment: Belia Reid WPtel: [address] [place] [address] 12/24- appt. confirmed FOLLOW UP 2 Patient Education: Patient Medication Summary Completed 12/26/2011 Appointment: Belia Reid WPtel: [address] [place] [address] US FOLLOW UP 11/14/2011 Patient Education: Patient Medication Summary Completed 11/14/2011 Appointment: Belia Reid WPtel: [address] [place] [address] US FOLLOW UP 09/12/2011 Patient Education: Patient Medication Summary Completed 09/12/2011 Visit Plan: Supportive care Decrease Liseth catalino to 50mg q HS Decrease AM dose of Valium to 5mg q HS Use Endocet sparingly 08/15/2011 Appointment: Belia Reid WPtel: [address] [place] [address] ER Follow UP 08/15/2011 Patient Education: Patient Medication Summary Completed 08/15/2011 Appointment: Belia Reidtel: [address] [place] [address] [place] Spoke directly to patient yesterday and confirmed the appoin tment. cn ACUTE ILLNESS 08/09/2011 Patient Education: Patient Medication Summary Completed 08/09/2011 Appointment: Belia Reid WPtel: [address] [place], [place] [phone] Hospital Follow Up 07/03/2011 Patient Education: Patient Medication Summary Completed 07/03/2011 Appointment: Belia Reid WPtel: [address] [place], [place] [phone] FOLLOW UP 06/04/2011 Patient Education: Patient Medication Summary Completed 06/04/2011 Visit Plan: Pt. wants "allergy shot" but in fact wants steroid shot. Will take a break from "generic Zyrtec they are getting from [facility]" and try Singulair for 2 weeks. 05/03/2011 Appointment: Iraida Jones WPtel: [address] [place] [address] ACUTE ILLNESS 05/03/2011 Patient Education: Patient Medication Summary Completed 05/03/2011 Visit Plan: Neurontin 400mg q HS for 1we ek then 800mg q HS Decrease requip to 1mg q HS for 2wks then stop Fwup 2mos 04/05/2011 Appointment: Belia Reid WPtel: [address] [place] [address] FOLLOW UP 04/05/2011 Patient Education: Patient Medication Summary Completed 04/05/2011 Visit Plan: Trial of neurontin in 2wks C ontinue current meds for stomach Pt has procedure with Dr. Ortiz next week for stone removal 03/08/2011 Appointment: Belia Reid WPtel: [address] [place], [place] [phone] Hospital Follow Up 03/08/2011 Patient Education: Patient Medication Summary Completed 03/08/2011 Appointment: Belia Reid WPtel: [address] [place], [place] [phone] FOLLOW UP 02/19/2011 Visit Plan: reports increased [...] with Flagyl 01/24/2011 Appointment: Iraida Jones WPtel: [address] [place] [address] ACUTE ILLNESS 01/24/2011 Patient Education: Patient Medication Summary Completed 01/24/2011 Appointment: Belia Reid WPtel: [address] [place] [address] FOLLOW UP 01/02/2011 Patient Education: Patient Medication Summary Completed 01/02/2011 Appointment: Belia Reid WPtel: [address] [place] [address] FOLLOW UP 12/12/2010 Appointment: Belia Reid WPtel: [address] [place] [address] ACUTE ILLNESS 12/07/2010 Patient Education: Patient Medication Summary Completed 12/07/2010 Visit Plan: Increase Buspar to 10mg po B ID 11/16/2010 Appointment: Belia Reid WPtel: [address] [place] [address] FOLLOW UP 11/16/2010 Patient Education: Patient Medication Summary Completed 11/16/2010 Appointment: Iraida Jones WPtel: [address] [place] [address] ER Follow UP 11/02/2010 Patient Education: Patient Medication Summary Completed 11/02/2010 Visit Plan: Depo-Medrol/Kenalog given fo r allergies Add BuSpar for anxiety Oxycodone one p.o. q.i.d. for number 120 refilled 10/18/2010 Appointment: Belia Reid WPtel: [address] [place] [address] FOLLOW UP 10/18/2010 Patient Education: Patient Medication Summary Completed 10/18/2010 Visit Plan: Continue current meds Discus sed epidurals for back vs PT--will proceed with epidurals to thoracolumbar region to see if helps with pain 09/19/2010 Appointment: Belia Reidtel: [address] [place], [place] [phone] FOLLOW UP 09/19/2010 Patient Education: Patient Medication Summary Completed 09/19/2010 Visit Plan: DC MS contin Check CT scan t horacic spine Fwup pending above results 09/06/2010 Appointment: Belia Reid WPtel: [address] [place], [place] [phone] FOLLOW UP 09/06/2010 Patient Education: Patient Medication Summary Completed 09/06/2010 Visit Plan: Continue current meds Restar t MS contin 15mg po BID and use oxycodone prn Use daily senokot-s 2 po BID 08/10/2010 Appointment: Belia Reid WPtel: [address] [place] [address] FOLLOW UP 08/10/2010 Patient Education: Patient Medication Summary Completed 08/10/2010 Visit Plan: Depomedrol/Kenalog given Pt sees ENT later this month Cont current meds Mammo scheduled 05/11/2010 Appointment: Belia Reid WPtel: [address] [place], [place] [phone] FOLLOW UP 05/11/2010 Patient Education: Patient Medication Summary Completed 05/11/2010 Appointment: Belia Reidtel: [address] [place], [place] [phone] UA 05/04/2010 Patient Education: Patient Medication Summary Completed 05/04/2010 Visit Plan: Pt sent to lab for UA 04/28/2010 Appointment: Belia Reidtel: [address] [place], [place] [phone] UA 04/28/2010 Patient Education: Patient Medication Summary Completed 04/28/2010 Visit Plan: Check CT angiogram of chest Restart Advair Use proair prn Cont current meds Fwup with Card as schedulec 04/06/2010 Appointment: Belia Reid WPtel: [address] [place], [place] [phone] [facility] Follow Up 04/06/2010 Patient Education: Patient Medication Summary Completed 04/06/2010 Visit Plan: Paperwork filled out for pow erchair Depomedrol/kenalog given Pt sees ENT in 2wks to assess nasal obstruction problems 02/09/2010 Appointment: Belia Reid WPtel: [address] [place], [place] [phone] ESTABLISHED PATIENT 02/09/2010 Patient Education: Patient Medication Summary Completed 02/09/2010 Visit Plan: Change Elavil to Trazadone 1 50mg q HS Diflucan and nystatin for tinea cruris 01/05/2010 Appointment: Belia Reid WPtel: [address] [place], [place] [phone] FOLLOW UP 01/05/2010 Patient Education: Patient Medication Summary Completed 01/05/2010 Appointment: Belia Reid WPtel: [address] [place], [place] [phone] FOLLOW UP 12/07/2009 Patient Education: Patient Medication Summary Completed 12/07/2009 Appointment: Belia Reid WPtel: [address] [place], [place] [phone] FOLLOW UP 11/22/2009 Visit Plan: Cont current meds and await MRI results from Dr. Meadows's office and his final recommendations Will need to follow-up at later date on deviated septum 11/08/2009 Appointment: Belia Reid WPtel: [address] [place], [place] [phone] FOLLOW UP 11/08/2009 Patient Education: Patient Medication Summary Completed 11/08/2009 Visit Plan: Cont PT/OT See Neurosurgery Cont Tortoise shell brace 10/24/2009 Appointment: Belia Reid WPtel: [address] [place], [place] [phone] FOLLOW UP 10/24/2009 Patient Education: Patient Medication Summary Completed 10/24/2009 Appointment: Belia Reid WPtel: [address] [place], [place] [phone] [place] [address] Follow Up 10/17/2009 Appointment: Belia Reid WPtel: [address] [place], [place] [phone] ACUTE ILLNESS 07/25/2009 Patient Education: Patient Medication Summary Completed 07/25/2009 Appointment: Belia Reid WPtel: [address] [place], [place] [phone] FOLLOW UP 05/26/2009 Patient Education: Patient Medication Summary Completed 05/26/2009 Referral: Chino Balderas WPtel: [facility] [place][note 2]1 [facility] Referral Initiated Referral: Merry Vale WPtel: [facility] [id number] [address] Vale will review referral and book appointment Completed Referral: Francisco Javier Yoder WPtel: [address] Patient needs EGD insurance will not inc rease a medication unless this procedure results show a need Completed Referral: Francisco Javier Yoder WPtel: [address] [place] [address] [place] Referral Historical Reference Referral: Francisco Javier Yoder WPtel: [address] [id number] [place] Referral Initiated Instructions Comment . Xrays [...] last date of carotid doppler from her assistant oceanographer and update if needed . Long discussion [...] from "generic Zyrtec they are getting from [employer]" and try Singulair for 2 weeks. . [...]
--- OUTSIDE RECORDS SUMMARY | 2019-06-23 17:56 | XMS REPORT | CCD ---
Author Author Diana Reid D.O. Organization [facility] Address [address] [place] [id number] Phone Care Team Providers Care Joist Setter Name Role Phone Belia Reid D.O., PP Unavailable CCM Unavailable Summary Purpose Interface Exchange Insurance Providers Payer name Policy type / Coverage type Covered republican ID Effective Begin Date Effective End Date [employer]NA MEDICARE Medicare Part B [id number] 2019 Unknown Family History Family History data not found Social History Social History Element Codes Description Effective Dates Tobacco history SNOMED CT: 696032981 Nonsmoker 09/13/2010 Allergies, Adverse Reactions, Alerts Substance Reaction Codes Entered Date Inactivated Date Status Eggs reaction [id number] 09/15/2015 No Inactive Date Active _ Unknown 01/07/2019 No Inactive Date Active PENICILLINS Unknown 01/07/2019 No Inactive Date Active SULFA (SULFONAMIDES) rash Unknown 11/02/2010 No Inactive Mike e Active Problems Condition Codes Effective Dates Condition Status Chronic obstructive pulmonary disease, unspecified ICD -9: [...] Start Date Stop Date Status Fill Instructions diltiazem CD 240 mg capsule,extended release 24 hr RxNorm: 8 30713 1 Capsule(s) Oral QD 05/26/2019 11/21/2019 Active omeprazole 40 mg capsule,delayed release RxNorm: 132754 1 Capsule(s) Oral two times a day 05/26/2019 11/21/2019 Active hydroxyzine HCl 25 mg tablet RxNorm: 492104 1 Tablet(s) Oral QPM for itching/aniety 05/21/2019 06/27/2019 Active metoprolol tartrate 25 mg tablet RxNorm: 729726 1 Table t(s) Oral two times a day 05/21/2019 08/19/2019 Active hydroxyzine HCl 25 mg tablet RxNorm: 043212 1 Tablet(s) Oral QPM for itching/aniety 05/13/2019 05/20/2019 Inactive gabapentin 600 mg tablet RxNorm: 226642 1 Tablet(s) Oral QD 020 06/05/2019 Active Singulair 10 mg tablet RxNorm: 049171 1 Tablet(s) Oral QPM 05/06/19 20 05/12/2019 Inactive Valium 5 mg tablet RxNorm: 731996 1 Tablet(s) Oral QPM for stri joao/muscle spasm 04/29/2019 05/29/2019 Active baclofen 10 mg tablet RxNorm: 151331 1 Tablet(s) Oral QPM for s pasm/neck pain 04/24/2019 05/23/2019 Inactive baclofen 10 mg tablet RxNorm: 856825 1 Tablet(s) Oral QPM for s pasm/neck pain 04/24/2019 04/23/2019 Inactive Novolin N NPH U-100 Insulin isophane 100 unit/mL subcu taneous susp RxNorm: 084025 23 Unit(s) Subcutaneous two times a day 04/20/2019 No Stop Date A ctive cyclobenzaprine 5 mg tablet RxNorm: 731854 1 Tablet(s) Oral three times a day as needed 04/16/2019 04/23/2019 Inactive hydroxyzine HCl 25 mg tablet RxNorm: 902705 1 Tablet(s) Oral three times a day for itching/aniety 04/08/2019 05/12/2019 Inactive gabapentin 600 mg tablet RxNorm: 830889 1 Tablet(s) Oral two ti mes a day 04/08/2019 05/05/2019 Inactive gabapentin 600 mg tablet RxNorm: 411298 1 Tablet(s) Oral two ti mes a day 04/08/2019 04/07/2019 Inactive Novolin N NPH U-100 Insulin isophane 100 unit/mL subcu taneous susp RxNorm: 865700 10 Unit(s) Subcutaneous two times a day 03/03/2019 04/19/2019 I nactive gabapentin 300 mg capsule RxNorm: 889025 1 Capsule(s) O ral every night at bedtime for neuropathy 02/26/2019 04/07/2019 Inactive gabapentin 300 mg capsule RxNorm: 005693 1 Capsule(s) O ral every night at bedtime for neuropathy 02/20/2019 02/25/2019 Inactive pramipexole 1 mg tablet RxNorm: 265009 1 Tablet(s) Oral QPM FOR RESTLESS LEGS (REPLACES REQUIP) 02/12/2019 02/07/2020 Active buspirone 5 mg tablet RxNorm: 873430 TAKE 1 TABLET THREE TIMES MILDRED Y 02/12/2019 05/12/2019 Inactive Lexapro 10 mg tablet RxNorm: 787478 TAKE 1 TABLET EVERY DAY FOR MOO D 01/31/2019 No Stop Date Active Ativan 0.5 mg tablet RxNorm: 711790 TAKE 1 TABLET BY [facility] THREE TIMES DAILY NEEDED FOR ANXIETY 01/26/2019 04/28/2019 Inactive Ativan 0.5 mg tablet RxNorm: 250839 TAKE 1 TABLET BY [facility] THREE TIMES DAILY NEEDED FOR ANXIETY 01/05/2019 01/05/2019 Inactive Levaquin 500 mg tablet RxNorm: 717003 1 Tablet(s) Oral QD 12/25/2018 12/24/2018 Inactive Levaquin 500 mg tablet RxNorm: 701799 1 Tablet(s) Oral QD 12/25/2018 01/04/2019 Inactive baclofen 10 mg tablet RxNorm: 713062 1 Tablet(s) Oral three maico es a day 11/20/2018 01/19/2019 Inactive Ativan 0.5 mg tablet RxNorm: 194096 TAKE 1 TABLET BY [facility] THREE TIMES DAILY NEEDED FOR ANXIETY 11/20/2018 01/04/2019 Inactive gabapentin 300 mg capsule RxNorm: 414273 1 Capsule(s) O ral every night at bedtime for neuropathy 11/20/2018 12/20/2018 Inactive Lexapro 10 mg tablet RxNorm: 507089 1 Tablet(s) PO QD for mood 07/201801/30/2019 Inactive Zithromax Z-Lj 250 mg tablet RxNorm: 330558 Tablet(s) PO take as directed 11/04/2018 11/19/2018 Inactive Insulin Syringe 1 mL 29 gauge x 1/2" RxNorm: 2 s yringes daily with insulin Dx: E11.65 10/08/2018 No Stop Date Active gabapentin 300 mg capsule RxNorm: 981604 1 Capsule(s) PO QHS fo r neuropathy 09/18/2018 10/17/2018 Inactive cyclobenzaprine 5 mg tablet RxNorm: 253620 1 Tablet(s) PO TID a s needed 09/09/2018 09/08/2018 Inactive cyclobenzaprine 5 mg tablet RxNorm: 033772 1 Tablet(s) PO TID a s needed 09/09/2018 10/08/2018 Inactive prednisone 20 mg tablet RxNorm: 895757 1 Tablet(s) PO QD 09/08/2018 0 09/12/2018 Inactive Lantus Solostar U-100 Insulin 100 unit/mL (3 mL) subcu taneous pen RxNorm: 815038 55 Unit(s) SQ QAM 08/28/2018 11/03/2018 Inactive hydroxyzine HCl 25 mg tablet RxNorm: 959412 1 Tablet(s) PO QHS for itching 08/20/2018 05/12/2019 Inactive Lexapro 10 mg tablet RxNorm: 264260 1 Tablet(s) PO QD for mood 08/0210/18/2018 Inactive sumatriptan 100 mg tablet RxNorm: 927889 1 Tablet(s) PO at headache onset. May repeat 1 in two hours if headache remains. Max of 2 per 24 hours 04/02/2018 05/20/2018 Inactive Diflucan 150 mg tablet RxNorm: 846951 1 Tablet(s) PO QD 03/18/2018 Inactive Diflucan 150 mg tablet RxNorm: 127338 1 Tablet(s) PO QD 03/18/2018 Inactive Flagyl 500 mg tablet RxNorm: 456787 1 Tablet(s) PO TID 03/17/2018 Inactive Levaquin 500 mg tablet RxNorm: 538500 1 Tablet(s) PO QD 03/17/2018 Inactive Levaquin 500 mg tablet RxNorm: 195893 1 Tablet(s) PO QD 03/17/2018 Inactive Flagyl 500 mg tablet RxNorm: 177674 1 Tablet(s) PO TID 03/17/2018 Inactive ketoconazole 200 mg tablet RxNorm: 720981 1 Tablet(s) PO QD 019 03/19/2018 Inactive Celebrex 200 mg capsule RxNorm: 727570 1 Capsule(s) PO BID 02/06/20 18 05/20/2018 Inactive tramadol 50 mg tablet RxNorm: 591441 1 Tablet(s) PO TID as needed 1 04/08/2017 05/20/2018 Inactive gabapentin 300 mg capsule RxNorm: 644236 1 Capsule(s) PO BID 201705/20/2018 Inactive Diflucan 150 mg tablet RxNorm: 092592 1 Tablet(s) PO QD 01/20/2018 Inactive pramipexole 1 mg tablet RxNorm: 079977 1 Tablet(s) PO Q PM FOR RESTLESS LEGS (REPLACES REQUIP) 01/08/2018 02/11/2019 Inactive cyclobenzaprine 10 mg tablet RxNorm: 150823 1 Tablet(s) PO TID as needed for muscle spasm 12/17/2017 05/20/2018 Inactive pramipexole 1 mg tablet RxNorm: 933529 TAKE 1 TABLET BY MOUTH ONCE DAILY IN THE EVENING FOR RESTLESS LEGS (REPLACES REQUIP) 12/04/2017 01/05/2018 Inac tive Amaryl 4 mg tablet RxNorm: 486993 1 Tablet(s) PO BID replaces 2mg 0 11/05/2017 12/16/2017 Inactive Singulair 10 mg tablet RxNorm: 794406 1 Tablet(s) PO QHS for al lergies/lungs 10/30/2017 12/16/2017 Inactive Diflucan 100 mg tablet RxNorm: 374256 1 Tablet(s) PO QD 10/23/2017 Inactive Ativan 0.5 mg tablet RxNorm: 391181 TAKE 1 TABLET BY MOUTH THRE E TIMES DAILY 08/30/2017 11/20/2018 Inactive buspirone 5 mg tablet RxNorm: 994172 1 Tablet(s) PO TID 07/11/2017 Inactive propranolol 60 mg tablet RxNorm: 379352 1 Tablet(s) PO BID repl aces 40mg dose 06/26/2017 12/16/2017 Inactive Amaryl 4 mg tablet RxNorm: 784175 1 Tablet(s) PO BID replaces 2mg 0 06/12/2017 11/05/2017 Inactive omeprazole 40 mg capsule,delayed release RxNorm: 737212 1 Capsule(s) PO BID TAKE ONE CAPSULE BY MOUTH TWICE DAILY 05/30/2017 11/25/2017 Inactive pramipexole 1 mg tablet RxNorm: 920467 1 Tablet(s) PO Q PM for restless legs--replaces requip 05/30/2017 11/25/2017 Inactive amitriptyline 50 mg tablet RxNorm: 157939 1 Tablet(s) PO QHS 201709/16/2017 Inactive Diflucan 100 mg tablet RxNorm: 916839 1 Tablet(s) PO BID 05/07/2017 0 05/20/2017 Inactive nystatin (bulk) 100 million unit powder RxNorm: Application TO P BID 05/07/2017 05/20/2018 Inactive cholestyramine (with sugar) 4 gram oral powder RxNorm: 846126 1 Unit Dose PO QD 05/07/2017 01/20/2018 Inactive Ativan 0.5 mg tablet RxNorm: 116507 TAKE ONE TABLET BY MOUTH TH REE TIMES DAILY 05/01/2017 09/02/2017 Inactive Trulicity 1.5 mg/0.5 mL subcutaneous pen injector RxNorm: 15 87308 1 Unit Dose SQ WEEKLY 02/22/2017 03/23/2017 Inactive doxycycline hyclate 100 mg capsule RxNorm: 1583698 1 Capsule(s) PO BID 01/23/2017 02/05/2017 Inactive Amaryl 4 mg tablet RxNorm: 958281 1 Tablet(s) PO BID replaces 2mg 1 03/25/2016 05/22/2017 Inactive magnesium oxide 400 mg capsule RxNorm: 034670 1 Capsule(s) PO QD 07/18/2017 Inactive Ativan 0.5 mg tablet RxNorm: 045245 TAKE ONE TABLET BY MOUTH TH REE TIMES DAILY 01/17/2017 05/01/2017 Inactive Amaryl 2 mg tablet RxNorm: 802222 1 Tablet(s) PO BID 12/27/201601/22 Inactive Amaryl 2 mg tablet RxNorm: 395612 1 Tablet(s) PO BID 12/26/201612/26 Inactive Ativan 0.5 mg tablet RxNorm: 301838 TAKE ONE TABLET BY MOUTH TH REE TIMES DAILY 12/05/2016 01/18/2017 Inactive pramipexole 1 mg tablet RxNorm: 066591 1 Tablet(s) PO Q PM for restless legs--replaces requip 11/26/2016 05/30/2017 Inactive Mobic 15 mg tablet RxNorm: 092060 1 Tablet(s) PO QD 10/08/20162016 Inactive cyclobenzaprine 5 mg tablet RxNorm: 987730 1/2- 1 Tablet(s) PO TID 10/08/2016 10/17/2016 Inactive Ativan 0.5 mg tablet RxNorm: 738189 1 Tablet(s) PO TID 09/20/201607/2016 Inactive amitriptyline 50 mg tablet RxNorm: 483554 1 Tablet(s) PO QHS 201605/30/2017 Inactive propranolol 60 mg tablet RxNorm: 425729 1 Tablet(s) PO BID repl aces 40mg dose 09/19/2016 06/26/2017 Inactive Ativan 0.5 mg tablet RxNorm: 304375 1 Tablet(s) PO TID 08/20/2016 Inactive omeprazole 40 mg capsule,delayed release RxNorm: 765392 1 Capsule(s) PO BID TAKE ONE CAPSULE BY MOUTH TWICE DAILY 08/20/2016 05/30/2017 Inactive amitriptyline 50 mg tablet RxNorm: 577772 1 Tablet(s) PO QHS 201609/18/2016 Inactive pramipexole 1 mg tablet RxNorm: 732971 1 Tablet(s) PO Q PM for restless legs--replaces requip 07/23/2016 11/25/2016 Inactive Amaryl 2 mg tablet RxNorm: 685270 1 Tablet(s) PO BID 07/23/201612/27 Inactive propranolol 40 mg tablet RxNorm: 820727 1 Tablet(s) PO BID 07/13/1909/18/2016 Inactive Ativan 0.5 mg tablet RxNorm: 753401 1 Tablet(s) PO QID 06/19/2016 Inactive Amaryl 2 mg tablet RxNorm: 181335 1 Tablet(s) PO BID 06/19/201607/22 Inactive Ativan 0.5 mg tablet RxNorm: 111503 1 Tablet(s) PO QID 06/19/2016 Inactive buspirone 5 mg tablet RxNorm: 142439 1 Tablet(s) PO TID 06/19/2016 Inactive Ativan 0.5 mg tablet RxNorm: 741319 1 Tablet(s) PO BID 05/24/2016 Inactive buspirone 5 mg tablet RxNorm: 466561 1 Tablet(s) PO TID 05/23/2016 Inactive Macrobid 100 mg capsule RxNorm: 714926 1 Capsule(s) PO QOD 05/03/19 17 10/07/2016 Inactive pramipexole 1 mg tablet RxNorm: 066250 Tablet(s) 1 Tabl et(s) PO QPM for restless legs--replaces requip 04/26/2016 06/24/2016 Inactive propranolol 40 mg tablet RxNorm: 449938 TAKE ONE TABLET BY MOUT H TWICE DAILY 04/26/2016 06/24/2016 Inactive Detrol LA 4 mg capsule,extended release RxNorm: 230604 1 Capsul e(s) PO QHS 04/03/2016 05/02/2016 Inactive prednisone 20 mg tablet RxNorm: 731250 1 Tablet(s) PO QD 02/29/2016 0 03/04/2016 Inactive Actos 30 mg tablet RxNorm: 909072 TAKE ONE TABLET BY MOUTH ONCE DAILY 02/27/2016 12/19/2016 Inactive clindamycin 300 mg capsule RxNorm: 468224 1 Capsule(s) PO TID 02/0102/08/2016 Inactive Flagyl 500 mg tablet RxNorm: 082019 1 Tablet(s) PO BID 02/02/201609/2015 Inactive omeprazole 40 mg capsule,delayed release RxNorm: 740348 TAKE ONE CAPSULE BY MOUTH TWICE DAILY 01/15/2016 07/12/2016 Inactive gabapentin 300 mg capsule RxNorm: 229104 1 Capsule(s) PO QAM an d 2 po q HS 01/05/2016 06/18/2016 Inactive gabapentin 300 mg capsule RxNorm: 894327 1 Capsule(s) P O BID 1 Capsule(s) PO QHS 12/05/2015 01/04/2016 Inactive cyclobenzaprine 10 mg tablet RxNorm: 649602 1 Tablet(s) PO TID for spasm as needed for muscle spasm 12/05/2015 06/18/2016 Inactive ciprofloxacin 250 mg tablet RxNorm: 344307 1 Tablet(s) PO BID 12/0412/14/2015 Inactive pramipexole 1 mg tablet RxNorm: 703549 Tablet(s) 1 Tabl et(s) PO QPM for restless legs--replaces requip 11/07/2015 11/26/2016 Inactive Januvia 100 mg tablet RxNorm: 440625 1 Tablet(s) PO QD 10/26/201504/2015 Inactive propranolol 40 mg tablet RxNorm: 470657 TAKE ONE TABLET BY MOUT H TWICE DAILY 10/25/2015 04/21/2016 Inactive gabapentin 300 mg capsule RxNorm: 852152 1 Capsule(s) PO QHS 201512/04/2015 Inactive Cipro 500 mg tablet RxNorm: 950899 1 Tablet(s) PO BID 10/05/201511/2015 Inactive pramipexole 1 mg tablet RxNorm: 062280 Tablet(s) 1 Tabl et(s) PO QPM for restless legs--replaces requip 10/04/2015 11/02/2015 Inactive propranolol 40 mg tablet RxNorm: 779599 TAKE ONE TABLET BY MOUT H TWICE DAILY 09/26/2015 10/24/2015 Inactive Amaryl 2 mg tablet RxNorm: 006679 1 Tablet(s) PO QD 09/15/20152016 Inactive gabapentin 300 mg capsule RxNorm: 617276 1 Capsule(s) PO QHS 201510/14/2015 Inactive buspirone 5 mg tablet RxNorm: 505664 1 Tablet(s) PO TID 09/15/2015 Inactive pramipexole 1 mg tablet RxNorm: 352473 Tablet(s) 1 Tabl et(s) PO QPM for restless legs--replaces requip 09/08/2015 10/03/2015 Inactive pramipexole 1 mg tablet RxNorm: 154967 1 Tablet(s) PO Q PM for restless legs--replaces requip 08/08/2015 09/08/2015 Inactive Amaryl 2 mg tablet RxNorm: 194469 1 Tablet(s) PO QD 07/07/20152015 Inactive pramipexole 1 mg tablet RxNorm: 162461 1 Tablet(s) PO Q PM for restless legs--replaces requip 07/05/2015 08/03/2015 Inactive ropinirole 2 mg tablet RxNorm: 016061 TAKE ONE TABLET BY MOUTH TWICE DAILY 05/09/2015 09/14/2015 Inactive Diflucan 100 mg tablet RxNorm: 005288 1 Tablet(s) PO QD 03/30/2015 Inactive propranolol 40 mg tablet RxNorm: 325677 1 Tablet(s) PO BID 02/24/20 15 08/21/2015 Inactive [SAVINGS FOR UNINSURED PATIE NTS -- BIN:430659, PCN: ASPROD1, Group: AME08, ID# [id number], Process claim through MyColorScreen, for questions: . THIS IS NOT INSURANCE.] Flagyl 500 mg tablet RxNorm: 975204 1 Tablet(s) PO BID 02/03/201502/2015 Inactive Cipro 500 mg tablet RxNorm: 968677 1 Tablet(s) PO BID 02/03/201502/01 Inactive Carafate 1 gram tablet RxNorm: 260486 1 Tablet(s) PO QID make i nto slurry 02/03/2015 09/14/2015 Inactive ondansetron HCl 4 mg tablet RxNorm: 136351 1 Tablet(s) PO Q4H as needed for nausea 12/29/2014 01/04/2016 Inactive Diflucan 100 mg tablet RxNorm: 179534 1 Tablet(s) PO QD 12/29/2014 Inactive Keflex 500 mg capsule RxNorm: 415324 1 Capsule(s) PO TID 12/29/2014 1 03/09/2014 Inactive omeprazole 40 mg capsule,delayed release RxNorm: 086963 1 Capsu le(s) PO BID 12/27/2014 12/21/2015 Inactive [SAVINGS FOR UNINSUR ED PATIENTS -- BIN:467576, PCN: ASPROD1, Group: AME08, ID# [id number], Process claim through MyColorScreen, for questions: . THIS IS NOT INSURANCE.] ropinirole 2 mg tablet RxNorm: 312826 1 Tablet(s) PO BID 09/29/2014 0 03/27/2015 Inactive [SAVINGS FOR UNINSURED PATIENTS -- BIN:0 67812, PCN: ASPROD1, Group: AME08, ID# [id number], Process claim through MedImpact, for questions: . THIS IS NOT INSURANCE.] buspirone 5 mg tablet RxNorm: 354190 1 Tablet(s) PO TID 09/17/2014 Inactive ropinirole 2 mg tablet RxNorm: 562288 1 Tablet(s) PO BID 09/02/2014 0 09/28/2014 Inactive [SAVINGS FOR UNINSURED PATIENTS -- BIN:0 55961, PCN: ASPROD1, Group: AME08, ID# [id number], Process claim through MedImpact, for questions: . THIS IS NOT INSURANCE.] Zyrtec 10 mg tablet RxNorm: 6204520 1 Tablet(s) PO QD 09/02/201412/02 Inactive propranolol 40 mg tablet RxNorm: 878802 1 Tablet(s) PO BID 07/21/19 15 02/23/2015 Inactive [SAVINGS FOR UNINSURED PATIE NTS -- BIN:108737, PCN: ASPROD1, Group: AME08, ID# [id number], Process claim through MedImpact, for questions: . THIS IS NOT INSURANCE.] ropinirole 2 mg tablet RxNorm: 406741 1 Tablet(s) PO QHS 05/14/2014 0 09/01/2014 Inactive [SAVINGS FOR UNINSURED PATIENTS -- BIN:0 57467, PCN: ASPROD1, Group: AME08, ID# [id number], Process claim through MedImpact, for questions: . THIS IS NOT INSURANCE.] cyclobenzaprine 10 mg tablet RxNorm: 842962 1 Tablet(s) PO QHS for spasm 04/06/2014 09/01/2014 Inactive ipratropium-albuterol 0.5 mg-3 mg(2.5 mg base)/3 mL ne bulization soln RxNorm: 2758411 1 Unit Dose INH Q4H 03/16/2014 No Stop Date Active [SAVINGS FOR UNINSURED PATIENTS -- BIN:236858, PCN: ASPROD1, Group: AME08, ID# [id number], Process claim through MedImpact, for questions: . THIS IS NOT INSURANCE.] prednisone 20 mg tablet RxNorm: 930524 1 Tablet(s) PO BID 03/09/2014 03/15/2014 Inactive [SAVINGS FOR UNINSURED PATIENTS -- BIN:0 76173, PCN: ASPROD1, Group: AME08, ID# [id number], Process claim through MedImpact, for questions: . THIS IS NOT INSURANCE.] ipratropium-albuterol 0.5 mg-3 mg(2.5 mg base)/3 mL ne bulization soln RxNorm: 1793165 1 Unit Dose INH Q4H 03/09/2014 03/15/2014 Inactive [SAVINGS FOR UNINSURED PATIENTS -- BIN:129175, PCN: ASPROD1, Group: AME08, ID# [id number], Process claim through MedImpact, for questions: . THIS IS NOT INSURANCE.] Levaquin 500 mg tablet RxNorm: 025605 1 Tablet(s) PO QD 03/09/2014 Inactive [SAVINGS FOR UNINSURED PATIENTS -- BIN:0 97941, PCN: ASPROD1, Group: AME08, ID# [id number], Process claim through MedImpact, for questions: . THIS IS NOT INSURANCE.] Carafate 1 gram tablet RxNorm: 205195 1 Tablet(s) PO AC & HS ma ke into slurry 02/09/2014 09/01/2014 Inactive [SAVINGS FOR UNINSUR ED PATIENTS -- BIN:838052, PCN: ASPROD1, Group: AME08, ID# [id number], Process claim through MedImpact, for questions: . THIS IS NOT INSURANCE.] Fioricet 50 mg-300 mg-40 mg capsule RxNorm: 5154546 1-2 Capsule(s) PO Q4H as needed for headache --max of 6 a day 02/09/2014 09/01/2014 Inactive [SAVINGS FOR UNINSURED PATIENTS -- BIN:232220, PCN: ASPROD1, Group: AME08, ID# [id number], Process claim through MedImpact, for questions: . THIS IS NOT INSURANCE.] propranolol 40 mg tablet RxNorm: 379541 1 Tablet(s) PO BID 12/08/19 14 06/04/2014 Inactive [SAVINGS FOR UNINSURED PATIE NTS -- BIN:867039, PCN: ASPROD1, Group: AME08, ID# [id number], Process claim through MedImpact, for questions: . THIS IS NOT INSURANCE.] buspirone 5 mg tablet RxNorm: 651480 1 Tablet(s) PO TID 12/02/2013 Inactive omeprazole 40 mg capsule,delayed release RxNorm: 332266 1 Capsu le(s) PO BID 11/25/2013 11/19/2014 Inactive [SAVINGS FOR UNINSUR ED PATIENTS -- BIN:869403, PCN: ASPROD1, Group: AME08, ID# [id number], Process claim through MedImpact, for questions: . THIS IS NOT INSURANCE.] ropinirole 2 mg tablet RxNorm: 523368 1 Tablet(s) PO QHS 11/10/2013 0 05/08/2014 Inactive [SAVINGS FOR UNINSURED PATIENTS -- BIN:0 61906, PCN: ASPROD1, Group: AME08, ID# [id number], Process claim through MedImpact, for questions: . THIS IS NOT INSURANCE.] Cipro 500 mg tablet RxNorm: 514308 1 Tablet(s) PO BID 10/21/201312/03 Inactive [SAVINGS FOR UNINSURED PATIENTS -- BIN:0 91160, PCN: ASPROD1, Group: AME08, ID# [id number], Process claim through MedImpact, for questions: . THIS IS NOT INSURANCE.] hydroxyzine HCl 25 mg tablet RxNorm: 038243 1 Tablet(s) PO Q4-6 H as needed 10/05/2013 01/04/2016 Inactive [SAVINGS FOR UNINSUR ED PATIENTS -- BIN:081143, PCN: ASPROD1, Group: AME08, ID# [id number], Process claim through MedImpact, for questions: . THIS IS NOT INSURANCE.] triamcinolone acetonide 0.1 % topical cream RxNorm: 8038774 Appl ication TOP BID 10/05/2013 09/01/2014 Inactive [SAVINGS FOR UNINSUR ED PATIENTS -- BIN:130916, PCN: ASPROD1, Group: AME08, ID# [id number], Process claim through MedImpact, for questions: . THIS IS NOT INSURANCE.] albuterol sulfate HFA 90 mcg/actuation aerosol inhaler RxNor m: 3134359 2 Puff(s) INH Q4H as needed for cough 10/01/2013 12/22/2013 Inactive [MAKSIM INGS FOR UNINSURED PATIENTS -- BIN:360613, PCN: ASPROD1, Group: AME08, ID# [id number], Process claim through MedImpact, for questions: . THIS IS NOT INSURANCE.] propranolol 40 mg tablet RxNorm: 864244 1 Tablet(s) PO BID 09/02/19 14 11/29/2013 Inactive [SAVINGS FOR UNINSURED PATIE NTS -- BIN:374451, PCN: ASPROD1, Group: AME08, ID# [id number], Process claim through MedImpact, for questions: . THIS IS NOT INSURANCE.] propranolol 40 mg tablet RxNorm: 908619 1 Tablet(s) PO BID 08/05/19 14 08/31/2013 Inactive [SAVINGS FOR UNINSURED PATIE NTS -- BIN:421825, PCN: ASPROD1, Group: AME08, ID# [id number], Process claim through MedImpact, for questions: . THIS IS NOT INSURANCE.] Toprol XL 50 mg tablet,extended release RxNorm: 966318 1 Tablet (s) PO QHS 07/23/2013 08/03/2013 Inactive Macrobid 100 mg capsule RxNorm: 783821 1 Capsule(s) PO BID 07/04/19 14 07/09/2013 Inactive Toprol XL 50 mg tablet,extended release RxNorm: 123489 1 Tablet (s) PO QHS 05/28/2013 06/26/2013 Inactive ciprofloxacin 500 mg tablet RxNorm: 909789 1 Tablet(s) PO BID 05/2706/02/2013 Inactive Bystolic 5 mg tablet RxNorm: 527070 1 Tablet(s) PO QD 05/27/201305/03 Inactive ropinirole 2 mg tablet RxNorm: 605459 1 Tablet(s) PO QHS 04/22/2013 0 11/09/2013 Inactive Cipro 250 mg tablet RxNorm: 127439 1 Tablet(s) PO BID 04/06/201311/2013 Inactive ropinirole 2 mg tablet RxNorm: 758536 1 Tablet(s) PO QHS 02/17/2013 0 04/21/2013 Inactive Amaryl 2 mg tablet RxNorm: 480159 1 Tablet(s) PO QAM 11/11/201211/10 Inactive Amaryl 2 mg tablet RxNorm: 008506 1 Tablet(s) PO QAM 11/11/201204/05 Inactive omeprazole 40 mg capsule,delayed release RxNorm: 303533 1 Capsu le(s) PO BID 08/14/2012 08/08/2013 Inactive Bystolic 5 mg tablet RxNorm: 234816 1 Tablet(s) PO QD 08/14/201205/03 Inactive propranolol 60 mg tablet RxNorm: 659933 Tablet(s) PO TAKE 1 TAB LET TWICE DAILY 08/01/2012 09/01/2012 Inactive Bystolic 5 mg tablet RxNorm: 550947 1 Tablet(s) PO QD 07/21/201207/02 Inactive Bystolic 5 mg tablet RxNorm: 874317 1 Tablet(s) PO QD 07/21/201207/03 Inactive Prilosec 40 mg capsule,delayed release RxNorm: 816210 1 Capsule (s) PO BID 06/24/2012 07/21/2012 Inactive buspirone 10 mg tablet RxNorm: 309499 1 Tablet(s) PO TID 05/08/2012 0 05/23/2016 Inactive Valium 10 mg tablet RxNorm: 292385 1 Tablet(s) PO BID 04/02/201207/03 Inactive Endocet 10 mg-325 mg tablet RxNorm: 4965619 1 Tablet(s) PO QID 03/0607/21/2012 Inactive as needed for severe pain Valium 10 mg tablet RxNorm: 368421 1 Tablet(s) PO BID 02/27/2012 No S top Date Active Endocet 10 mg-325 mg tablet RxNorm: 7136988 1 Tablet(s) PO QID 02/0203/27/2012 Inactive as needed for severe pain Endocet 10 mg-325 mg tablet RxNorm: 7738099 1 Tablet(s) PO QID 01/0302/26/2012 Inactive as needed for severe pain Valium 10 mg tablet RxNorm: 251921 1 Tablet(s) PO BID 01/29/2012 No S top Date Active Protonix 40 mg tablet,delayed release RxNorm: 741480 1 Tablet(s ) PO QD 01/28/2012 07/21/2012 Inactive metformin ER 500 mg tablet,extended release 24 hr RxNorm: 86 0977 1 Tablet(s) PO QD 12/26/2011 07/20/2012 Inactive Trazadone 150 mg Tablet RxNorm: 1 Tablet(s) PO QHS prn sleep 1 04/23/2012 Inactive Endocet 10 mg-325 mg tablet RxNorm: 2029664 1 Tablet(s) PO QID 12/0301/24/2012 Inactive as needed for severe pain Nexium 40 mg capsule,delayed release RxNorm: 868411 1 Capsule(s ) PO QD 12/26/2011 01/27/2012 Inactive Symbicort 160 mcg-4.5 mcg/actuation HFA Aerosol Inhaler RxNo rm: 1972477 2 Puff(s) INH BID 12/04/2011 07/21/2012 Inactive Endocet 10 mg-325 mg tablet RxNorm: 0396943 1 Tablet(s) PO QID 11/0312/25/2011 Inactive as needed for severe pain metformin ER 500 mg tablet,extended release 24 hr RxNorm: 86 0977 1 Tablet(s) PO QD 11/20/2011 12/19/2011 Inactive metformin ER 500 mg tablet,extended release 24 hr RxNorm: 86 0977 1 Tablet(s) PO QD 11/20/2011 11/19/2011 Inactive amitriptyline 100 mg tablet RxNorm: 161174 Tablet(s) PO QHS 1 a nd 1/2 tabs QHS 11/12/2011 11/13/2011 Inactive Valium 10 mg tablet RxNorm: 594204 1 Tablet(s) PO BID 11/09/2011 No S top Date Active Endocet 10 mg-325 mg tablet RxNorm: 2555802 1 Tablet(s) PO QID 10/0211/14/2011 Inactive as needed for severe pain Aricept 10 mg Tab RxNorm: 319496 1 Tablet(s) PO QD 10/05/2011 013 Inactive Valium 10 mg tablet RxNorm: 482313 1 Tablet(s) PO BID 10/05/2011 No S top Date Active Endocet 10 mg-325 mg Tab RxNorm: 5134919 1 Tablet(s) PO QID 012 10/09/2011 Inactive as needed for severe pain Aricept 10 mg Tab RxNorm: 616800 1 Tablet(s) PO QD 08/14/2011 012 Inactive Endocet 10 mg-325 mg Tab RxNorm: 2876987 1 Tablet(s) PO QID 012 08/31/2011 Inactive as needed for severe pain Valium 10 mg Tab RxNorm: 132902 1 Tablet(s) PO BID 08/02/2011 No Stop Date Active propranolol 60 mg tablet RxNorm: 003058 1 Tablet(s) PO BID 07/26/19 12 09/11/2011 Inactive amitriptyline 100 mg tablet RxNorm: 080443 Tablet(s) PO QHS 1 a nd 1/2 tabs QHS 06/20/2011 09/11/2011 Inactive buspirone 10 mg tablet RxNorm: 511817 1 Tablet(s) PO BID 06/18/2011 0 09/15/2011 Inactive propranolol 60 mg Tab RxNorm: 756968 1 Tablet(s) PO BID 06/18/2011 Inactive gabapentin 800 mg Tab RxNorm: 623426 1 Tablet(s) PO BID 06/18/2011 Inactive ropinirole 2 mg tablet RxNorm: 777188 1 Tablet(s) PO QHS 05/29/2011 0 08/26/2011 Inactive trimethoprim 100 mg Tab RxNorm: 456219 1 Tablet(s) PO QHS 05/29/2011 07/21/2012 Inactive Endocet 10 mg-325 mg Tab RxNorm: 1352387 1 Tablet(s) PO QID 012 2011 Inactive as needed for severe pain Valium 10 mg Tab RxNorm: 398920 1 Tablet(s) PO QHS N eed to take med as prescribed. this is a 40 day RX. No early fills. 05/17/2011 05/20/2018 Inactive propranolol 60 mg Tab RxNorm: 023366 1 Tablet(s) PO BID 04/16/2011 Inactive Neurontin 800 mg Tab RxNorm: 343006 1 Tablet(s) PO QHS 04/05/201103/2011 Inactive Endocet 10 mg-325 mg Tab RxNorm: 3437090 1 Tablet(s) PO QID 012 05/02/2011 Inactive as needed for severe pain oxycodone-acetaminophen 10 mg-325 mg tablet RxNorm: 6178862 1 Ta blet(s) PO Q4H 03/28/2011 05/19/2012 Inactive Valium 10 mg Tab RxNorm: 209212 1 Tablet(s) PO QHS 03/28/2011 012 Inactive buspirone 10 mg Tab RxNorm: 801830 1 Tablet(s) PO BID 03/27/201106/02 Inactive propranolol 60 mg Tab RxNorm: 981427 1 Tablet(s) PO BID 03/19/2011 Inactive Klor-Con M20 20 mEq Tab RxNorm: 2465551 1 Tablet(s) PO QD 03/19/2011 07/21/2012 Inactive Aricept 10 mg Tab RxNorm: 343977 1 Tablet(s) PO QD 02/27/2011 012 Inactive propranolol 60 mg Tab RxNorm: 234990 1 Tablet(s) PO BID 02/19/2011 Inactive omeprazole 40 mg capsule,delayed release RxNorm: 137690 1 Capsu le(s) PO BID 01/24/2011 05/23/2011 Inactive clindamycin 300 mg capsule RxNorm: 942849 1 Capsule(s) PO TID 01/2402/02/2011 Inactive propranolol 60 mg Tab RxNorm: 221611 1 Tablet(s) PO BID 01/22/2011 No Stop Date Active nystatin 100,000 unit/g Topical Cream RxNorm: 628050 Applicatio n TOP BID 01/15/2011 01/14/2011 Inactive to rash for 2-4 week s Diflucan 200 mg Tab RxNorm: 820817 1 Tablet(s) PO QD 01/15/201101/28 Inactive buspirone 10 mg Tab RxNorm: 808905 1 Tablet(s) PO BID 01/08/201103/05 Inactive Valium 10 mg Tab RxNorm: 428702 1 Tablet(s) PO QHS 01/05/2011 012 Inactive Diflucan 200 mg Tab RxNorm: 943501 1 Tablet(s) PO QD 01/01/201101/14 Inactive Diflucan 200 mg Tab RxNorm: 120157 1 Tablet(s) PO QD 12/18/201012/31 Inactive Valium 10 mg Tab RxNorm: 101627 1 Tablet(s) PO QHS 12/12/2010 011 Inactive Diflucan 200 mg Tab RxNorm: 939271 1 Tablet(s) PO QD 12/07/201012/18 Inactive Aricept 10 mg Tab RxNorm: 640348 1 Tablet(s) PO QD 11/20/2010 011 Inactive ropinirole 1 mg Tab RxNorm: 564364 1 Tablet(s) PO QHS 11/16/201005/03 Inactive enalapril maleate 5 mg Tab RxNorm: 904305 1 Tablet(s) PO QD 011 05/20/2018 Inactive buspirone 10 mg Tab RxNorm: 752355 1 Tablet(s) PO BID 11/16/201012/02 Inactive Valium 10 mg Tab RxNorm: 535605 1 Tablet(s) PO QHS 11/07/2010 011 Inactive Pyridium 100 mg Tab RxNorm: 4611003 1 Tablet(s) PO TID 11/02/201004/2010 Inactive Macrobid 100 mg Cap RxNorm: 9187508 1 Capsule(s) PO BID 11/02/2010 Inactive buspirone 10 mg Tab RxNorm: 549602 1 Tablet(s) PO QHS 10/18/201005/02 Inactive propranolol 60 mg Tab RxNorm: 833441 1 Tablet(s) PO BID 09/18/2010 Inactive Valium 10 mg Tab RxNorm: 670391 1 Tablet(s) PO QHS 09/05/2010 011 Inactive Aricept 10 mg Tab RxNorm: 239895 1 Tablet(s) PO QD 08/14/2010 011 Inactive Valium 10 mg Tab RxNorm: 331379 1 Tablet(s) PO QHS 06/26/2010 011 Inactive ropinirole 1 mg Tab RxNorm: 837511 1 Tablet(s) PO QHS 06/19/201010/02 Inactive omeprazole 40 mg Cap, delayed release RxNorm: 276063 1 Capsule( s) PO QD 06/07/2010 10/04/2010 Inactive Endocet 10 mg-325 mg Tab RxNorm: 1768835 1 Tablet(s) PO QID as needed for severe pain 06/07/2010 03/07/2011 Inactive Endocet 10 mg-325 mg Tab RxNorm: 8265684 1 Tablet(s) PO QID as needed for severe pain 05/04/2010 06/02/2010 Inactive Valium 10 mg Tab RxNorm: 501319 1 Tablet(s) PO QHS 05/01/2010 011 Inactive propranolol 60 mg Tab RxNorm: 063451 1 Tablet(s) PO BID 04/03/2010 Inactive Valium 10 mg Tab RxNorm: 940206 1 Tablet(s) PO QHS 03/28/2010 011 Inactive omeprazole 40 mg Cap, Delayed Release RxNorm: 134296 1 Capsule( s) PO QD 03/28/2010 06/06/2010 Inactive Endocet 10 mg-325 mg Tab RxNorm: 1202748 1 Tablet(s) PO QID prn ari n 03/27/2010 05/20/2018 Inactive Valium 10 mg Tab RxNorm: 777468 1 Tablet(s) PO QHS 02/20/2010 011 Inactive Diflucan 100 mg Tab RxNorm: 480248 1 Tablet(s) PO BID 01/23/2010 120 03/2009 Inactive Diflucan 100 mg Tab RxNorm: 658090 1 Tablet(s) PO BID 01/05/201001/02 Inactive Aricept 10 mg Tab RxNorm: 626535 1 Tablet(s) PO QD 12/01/2009 011 Inactive OxyContin 20 mg 12 hr Tab RxNorm: 7690640 1 Tablet(s) PO BID 200904/05/2010 Inactive oxycodone-acetaminophen 10 mg-325 mg Tab RxNorm: 1827390 1 Table t(s) PO Q4H 11/22/2009 11/26/2009 Inactive Phenergan 25 mg Tab RxNorm: 718892 1 Tablet(s) PO PRN MIGRAINE 11/0303/07/2011 Inactive Demerol 100 mg Tab RxNorm: 482456 1 Tablet(s) PO PRN MIGRAINE 11/2203/07/2011 Inactive Oxycodone-Acetaminophen 10 mg-325 mg Tab RxNorm: 4076329 1 Table t(s) PO Q4H 10/11/2009 10/15/2009 Inactive Percocet 10 mg-325 mg Tab RxNorm: 1683654 1 Tablet(s) PO Q4H 200910/24/2009 Inactive propranolol 60 mg Tab RxNorm: 408317 1 Tablet(s) PO BID 08/29/2009 Inactive Valium 10 mg Tab RxNorm: 023956 1 Tablet(s) PO QHS 08/16/2009 010 Inactive Keflex 500 mg Cap RxNorm: 369762 1 Capsule(s) PO BID 07/25/200907/31 Inactive Hydroxyzine 25 mg Tab RxNorm: 376625 1 Tablet(s) PO TID 07/25/2009 Inactive Prednisone 20 mg Tab RxNorm: 654020 1 Tablet(s) PO BID 07/25/2009 Inactive Demerol 100 mg Tab RxNorm: 975704 1 Tablet(s) PO PRN MIGRAINE 07/25 No Stop Date Active Ropinirole 1 mg Tab RxNorm: 653102 1 Tablet(s) PO HS 07/20/200902/14 Inactive Valium 10 mg Tab RxNorm: 271716 1 Tablet(s) PO QHS 07/18/2009 010 Inactive Endocet 10 mg-325 mg Tab RxNorm: 8325835 1 Tablet(s) PO TID 010 07/07/2009 Inactive Demerol 100 mg Tab RxNorm: 328331 1 Tablet(s) PO PRN MIGRAINE 06/08 No Stop Date Active Ropinirole 1 mg Tab RxNorm: 580600 1 Tablet(s) PO HS 05/16/200907/14 Inactive ipratropium-albuterol 0.5 mg-3 mg(2.5 mg base)/3 mL ne bulization soln RxNorm: 5160616 1 Unit Dose INH Q4H as needed No Start Date Active MagOx 400 mg (241.3 mg magnesium) tablet RxNorm: 425567 1 Table t(s) PO BID No Start Date Active Vitamin B12 1000mcg Tablet RxNorm: 1 Tablet(s) PO QD No Start Date Active Vitamin D3 5,000 unit tablet RxNorm: 644211 1 Tablet(s) PO QD No Star t Date Active Tylenol Arthritis Pain 650 mg tablet,extended release RxNorm : 4845957 1 Tablet(s) PO Q4H No Start Date Active Lotrimin AF 2 % topical powder RxNorm: 295320 1 Application TOP BID No Start Date Active enalapril maleate 5 mg Tab RxNorm: 483761 1 Tablet(s) PO QD No Star t Date 07/20/2012 Inactive Demerol 100 mg Tab RxNorm: 797256 Tablet(s) PO PRN MIGRAINE No Star t Date 06/02/2009 Inactive metformin 500 mg tablet RxNorm: 063020 1 Tablet(s) PO QD No Start D ate 04/05/2013 Inactive Breo Ellipta 100 mcg-25 mcg/dose powder for inhalation RxNor m: 1548166 1 Puff(s) INH BID No Start Date 01/04/2016 Inactive Mag-Oxide 400 mg Tab RxNorm: 272070 1 Tablet(s) PO QD No Start Date 0 07/21/2012 Inactive Cipro 500 mg Tab RxNorm: 405504 1 Tablet(s) PO QD No Start Date 04/05 Inactive Ativan 0.5 mg tablet RxNorm: 107238 1 Tablet(s) PO TID as needed No Start Date 05/06/2019 Inactive melatonin 3 mg tablet RxNorm: 909101 2 Tablet(s) PO QHS No Start Da te 08/19/2018 Inactive buspirone 10 mg Tab RxNorm: 834876 1 Tablet(s) PO QD No Start Date Inactive sucralfate 100 mg/mL Oral Susp RxNorm: 275918 2 Teaspoon(s) PO QID No Start Date 07/21/2012 Inactive hydrocodone 5 mg-acetaminophen 325 mg tablet RxNorm: 728822 1 Tablet(s) PO Q4H as needed No Start Date 08/19/2018 Inactive Amaryl 2 mg tablet RxNorm: 835454 1 Tablet(s) PO BID No Start Date Inactive OxyContin 20 mg 12 hr Tab RxNorm: 1980103 1 Tablet(s) PO BID No Sta rt Date 11/27/2009 Inactive propranolol 40 mg tablet RxNorm: 855261 1 Tablet(s) PO QID No Start Date 01/19/2018 Inactive Trazadone 150 mg Tablet RxNorm: 1-2 Tablet(s) PO QHS prn sleep No Start Date 08/09/2010 Inactive propranolol 60 mg Tab RxNorm: 418079 1/2 Tablet(s) PO BID No Start Date 01/21/2011 Inactive insulin NPH and regular human subcutaneous RxNorm: 6608829 subcu taneous No Start Date 11/20/2018 Inactive Ativan 0.5 mg tablet RxNorm: 876419 1 Tablet(s) PO QID No Start Date 06/18/2016 Inactive Vasotec 5 mg Tab RxNorm: 845021 1 Tablet(s) PO BID No Start Date 06/2011 Inactive Toprol XL 50 mg tablet,extended release RxNorm: 665144 1 Tablet (s) PO BID No Start Date 04/05/2013 Inactive Ativan 0.5 mg tablet RxNorm: 986339 1 Tablet(s) PO TID No Start Date 05/25/2016 Inactive Klor-Con M20 20 mEq Tab RxNorm: 3155648 1 Tablet(s) PO QD No Start Date 03/19/2011 Inactive sumatriptan 100 mg tablet RxNorm: 505320 1 Tablet(s) PO at headache onset--repeat in 2hrs if remains No Start Date 07/21/2012 Inactive propranolol 60 mg Tab RxNorm: 107082 1 Tablet(s) PO BID No Start Da te 08/28/2009 Inactive Cholestyramine Light 4 gram Oral Powder RxNorm: 9005705 1 Unit Dose PO QD in water No Start Date 07/21/2012 Inactive nystatin 100,000 unit/g Topical Powder RxNorm: 801637 Applicati on TOP BID No Start Date 07/21/2012 Inactive vitamin Y80-vbarx acid sublingual RxNorm: sublingual No Start Date 07/05/2013 Inactive cyclobenzaprine 5 mg tablet RxNorm: 424367 1/2-1 Tablet (s) PO TID as needed for muscle spasm No Start Date 07/18/2017 Inactive tramadol 50 mg tablet RxNorm: 152971 2 Tablet(s) PO TID as need ed for pain No Start Date 09/01/2014 Inactive aspirin 81 mg Tab RxNorm: 176912 1 Tablet(s) PO QOD No Start Date 04/2013 Inactive Vitamin B12 1000mcg Tablet RxNorm: 1 Tablet(s) PO QD No Start Date 07/18/2017 Inactive cholestyramine (with sugar) 4 gram oral powder RxNorm: 66196 3 1 Unit(s) PO QD as needed No Start Date 05/20/2018 Inactive ProAir HFA 90 mcg/Actuation Aerosol Inhaler RxNorm: 812593 2 Puff(s) INH Q4H prn shortness of breath No Start Date 07/21/2012 Inactive pravastatin 10 mg Tab RxNorm: 573881 1 Tablet(s) PO QD No Start Date 07/21/2012 Inactive gabapentin 800 mg Tab RxNorm: 939825 1 Tablet(s) PO BID No Start Da te 06/03/2011 Inactive Endocet 10 mg-325 mg Tab RxNorm: 8843577 1 Tablet(s) PO TID No Star t Date 06/02/2009 Inactive Naproxen 500 mg Tab RxNorm: 849035 1 Tablet(s) PO BID No Start Date 0 04/05/2010 Inactive Valium 10 mg Tab RxNorm: 351711 1 Tablet(s) PO BID No Start Date 07/04 Inactive enalapril maleate 5 mg Tab RxNorm: 213132 1 Tablet(s) PO QD No Star t Date 11/15/2010 Inactive doxepin 10 mg capsule RxNorm: 3768469 2 Capsule(s) PO QHS No Start Date 09/17/2018 Inactive MS Contin 15 mg Tab RxNorm: 731999 1 Tablet(s) PO BID No Start Date 0 09/18/2010 Inactive buspirone 5 mg tablet RxNorm: 475254 1 Tablet(s) PO TID No Start Da te 12/01/2013 Inactive [place] 3 Fish Oil Cap RxNorm: 1 Capsule(s) PO QD No Start Date 07/03 Inactive enalapril maleate 5 mg Tab RxNorm: 036011 1/2 Tablet(s) PO QD No St art Date 03/07/2011 Inactive Lyrica 75 mg capsule RxNorm: 158795 1 Capsule(s) PO QHS No Start Da te 02/08/2014 Inactive Lopressor 100 mg tablet RxNorm: 743885 1 Tablet(s) PO BID No Start Date 06/08/2018 Inactive Lantus Solostar U-100 Insulin 100 unit/mL (3 mL) subcu taneous pen RxNorm: 969811 45 Unit(s) SQ QAM No Start Date 05/20/2018 Inactive aspirin 81 mg tablet RxNorm: 734296 1 Tablet(s) PO QD No Start Date 0 09/14/2015 Inactive diltiazem CD 240 mg capsule,extended release 24 hr RxNorm: 8 07874 1 Capsule(s) PO QD No Start Date 05/25/2019 Inactive insulin NPH isophane U-100 human subcutaneous RxNorm: 411073 beckwith bcutaneous No Start Date 04/20/2019 Inactive sumatriptan 100 mg tablet RxNorm: 797169 1 Tablet(s) PO at headache onset. May repeat 1 in two hours if headache remains. Max of 2 per 24 hours No Start Date 04/01/2018 Inactive gabapentin 300 mg capsule RxNorm: 645008 1 Capsule(s) PO QHS No Sta rt Date 02/04/2018 Inactive Topamax 25 mg Tab RxNorm: 158976 Oral No Start Date 03/07/2011 In active Senokot-S 8.6 mg-50 mg Tab RxNorm: 2385441 1 Tablet(s) PO QD No Sta rt Date 03/07/2011 Inactive metformin ER 500 mg 24 hr tablet,extended release RxNorm: 18 65692 1 Tablet(s) PO QD No Start Date 05/20/2018 Inactive Symbicort 80 mcg-4.5 mcg/actuation HFA Aerosol Inhaler RxNor m: 4219479 2 Puff(s) INH BID No Start Date 04/05/2013 Inactive metoprolol tartrate 25 mg tablet RxNorm: 368681 1 Tablet(s) PO BID No Start Date 05/20/2019 Inactive propranolol 60 mg Tab RxNorm: 453982 1/2 Tablet(s) PO BID No Start Date 07/21/2012 Inactive metformin ER 500 mg 24 hr tablet,extended release RxNorm: 18 46970 2 Tablet(s) PO QD No Start Date 12/16/2017 Inactive Insulin Syringe 1 mL 29 gauge x 1/2" RxNorm: 2 s yringes daily with insulin Dx: E11.65 No Start Date 10/07/2018 Inactive Amitriptyline 75 mg Tab RxNorm: 679750 1 Tablet(s) PO QHS No Start Date 10/23/2009 Inactive donepezil 10 mg Tab RxNorm: 323311 1 Tablet(s) PO QD No Start Date Inactive Lantus Solostar U-100 Insulin 100 unit/mL (3 mL) subcu taneous pen RxNorm: 195960 36 Unit(s) SQ QAM No Start Date 12/24/2017 Inactive Miacalcin 200 unit/Actuation Nasal [place] Aerosol RxNorm: 261 204 1 [place] NASAL QD Alternate nostrils each day No Start Date 04/05/2010 Inactive Amitriptyline 150 mg Tab RxNorm: 835010 1 Tablet(s) PO QHS No Start Date 01/04/2010 Inactive Bystolic 5 mg tablet RxNorm: 772771 1 Tablet(s) PO QD No Start Date 0 08/13/2012 Inactive Aricept 10 mg Tab RxNorm: 731355 1 Tablet(s) PO QD No Start Date 11/03 Inactive Lantus Solostar U-100 Insulin 100 unit/mL (3 mL) subcu taneous pen RxNorm: 304183 50 Unit(s) SQ QAM No Start Date 08/27/2018 Inactive albuterol sulfate 2.5 mg/3 mL (0.083 %) Neb Solution RxNorm: 101159 1 Unit Dose INH QID as needed No Start Date 08/23/2015 Inactive Symbicort 160 mcg-4.5 mcg/actuation HFA Aerosol Inhaler RxNo rm: 8038347 2 Puff(s) INH BID No Start Date 12/03/2011 Inactive Savella 50 mg Tab RxNorm: 637216 1 Tablet(s) PO BID No Start Date 04/2010 Inactive amitriptyline 100 mg Tab RxNorm: 076118 1 1/2 Tablet(s) PO QHS No S tart Date 06/19/2011 Inactive nystatin 100,000 unit/g Topical Cream RxNorm: 020242 Ap plication TOP BID to rash for 2-4 weeks No Start Date 01/14/2011 Inactive Trelegy Ellipta 100 mcg-62.5 mcg-25 mcg powder for inhalatio n RxNorm: 2242487 1 Puff(s) INH QD No Start Date 12/16/2017 Inactive Lyrica 150 mg capsule RxNorm: 951349 1 Capsule(s) PO QHS No Start D ate 12/04/2015 Inactive sennosides 8.6 mg tablet RxNorm: 862878 1 Tablet(s) PO BID No Start Date 09/07/2018 Inactive metformin ER 500 mg tablet,extended release 24 hr RxNorm: 86 0975 1 Tablet(s) PO QD No Start Date 10/22/2017 Inactive Fish Oil 1,000 mg Cap RxNorm: 1 Capsule(s) PO QD No Start Date 06/2011 Inactive Zyrtec 10 mg Tab RxNorm: 8675523 1 Tablet(s) PO QD No Start Date 07/03 Inactive albuterol sulfate HFA 90 mcg/actuation aerosol inhaler RxNor m: 7038448 2 Puff(s) INH Q4H as needed for cough No Start Date 09/30/2013 Inactive trazodone 150 mg tablet RxNorm: 810163 1 Tablet(s) PO QHS No Start Date 07/21/2012 Inactive Spiriva with HandiHaler 18 mcg & inhalation capsules RxNorm: 300203 1 Capsule(s) INH QD No Start Date 04/05/2013 Inactive Coreg 3.125 mg Tab RxNorm: 167262 1 Tablet(s) PO BID No Start Date Inactive Phenergan 25 mg Tab RxNorm: 491735 Tablet(s) PO PRN MIGRAINE No Sta rt Date 11/21/2009 Inactive Vitamin D 50,000 unit Cap RxNorm: 2194776 1 Capsule(s) PO QW No Sta rt Date 03/07/2011 Inactive Januvia 100 mg tablet RxNorm: 606573 1 Tablet(s) PO QD No Start Date 10/25/2015 Inactive Eliquis 5 mg tablet RxNorm: 3646318 1 Tablet(s) PO BID No Start Date 08/19/2018 Inactive Advair Diskus 500 mcg-50 mcg/Dose for Inhalation RxNorm: 439830 1 INH BID No Start Date 07/21/2012 Inactive Vitamin D3 5,000 unit tablet RxNorm: 038395 1 Tablet(s) PO QD No St art Date 07/18/2017 Inactive Amaryl 2 mg tablet RxNorm: 765404 1 Tablet(s) PO QD No Start Date 06/2015 Inactive Actos 30 mg tablet RxNorm: 768777 1 Tablet(s) PO QD No Start Date Inactive promethazine 25 mg tablet RxNorm: 169078 1 Tablet(s) PO Q4H prn N/V No Start Date 07/21/2012 Inactive ProAir HFA 90 mcg/actuation Aerosol Inhaler RxNorm: 974972 2 Puff(s) INH Q4H prn dyspnea No Start Date 07/21/2012 Inactive Dexilant 60 mg Capsule RxNorm: 346609 1 Capsule(s) PO QD No Start D ate 01/27/2012 Inactive Lantus Solostar U-100 Insulin 100 unit/mL (3 mL) subcu taneous pen RxNorm: 371153 38 Unit(s) SQ QAM No Start Date 05/20/2018 Inactive Valium 10 mg Tab RxNorm: 265711 1 Tablet(s) PO QHS AND PRN No Start Date 10/24/2009 Inactive ZOFRAN ODT 8 mg disintegrating tablet RxNorm: 393349 1 Tablet(s ) PO Q6H No Start [...] Date S ervice Location MICROALBUMIN URINE RANDOM 20018 MICRL MG/L 14.9 MG/L Unknown MICROALBUMIN URINE RANDOM 08767 XM.ALB/CRE 6.1 MG/GCR Unknown MICROALBUMIN URINE RANDOM 08999 CREAT MG/D 243 MG/DL Unknown MICROALBUMIN URINE RANDOM 12433 CRE/100 2.43 G/L 03/05 Unknown PROTEIN/CREAT URINE WITH RATIO 23145|67951 PROT R U 14 MG/D L 04/01/2014 Unknown PROTEIN/CREAT URINE WITH RATIO 91893|66744 CREAT R U 254 MG/ DL 04/01/2014 Unknown PROTEIN/CREAT URINE WITH RATIO 07945|72696 XRATIO P/C 55 MG/ G 04/01/2014 Unknown URINALYSIS 72262 PROTEIN UR NEG 04/28/2010 Unknown URINALYSIS 37618 HEMGLBN UR NEG 04/28/2010 Unknown URINALYSIS 08063 GLUCOSE UR NEG 04/28/2010 Unknown URINALYSIS 39954 KETONES UR NEG 04/28/2010 Unknown URINALYSIS 44352 PH U 5.5 04/28/2010 Unknown URINALYSIS 60222 SP GR U 1.025 04/28/2010 Unknown URINALYSIS 25916 BILRUBN UR NEG 04/28/2010 Unknown URINALYSIS 81379 LEUKO UR 2+ 04/28/2010 Unknown URINALYSIS 71338 NITRITE UR NEG 04/28/2010 Unknown MICR CUL? [id number] WBC/HPF 6-10 04/28/2010 Unknown MICR CUL? [id number] RBC/HPF 0-5 04/28/2010 Unknown MICR CUL? 4511972 HYAL CAST 16-25 04/28/2010 Unknown MICR CUL? [id number] SP TO YOLIE? NO 04/28/2010 Unknown MICR CUL? [id number] APPEAR UR NORMAL 04/28/2010 Unknown MICR CUL? [id number] SQ EPI/LPF FEW 04/28/2010 Unknown Procedures Procedure Codes Date URINALYSIS NONAUTO W/O SCOPE CPT-4: 17080 04/16/2019 URINE CULTURE/ COLONY COUNT CPT-4: 65100 04/16/2019 CEFTRIAXONE SODIUM INJECTION CPT-4: J0696 04/16/2019 THER/PROPH/DIAG INJ SC/IM CPT-4: 16550 04/16/2019 DRAIN/INJECT JOINT/BURSA CPT-4: 86257 01/22/2019 TRIAMCINOLONE ACET INJ NOS CPT-4: J3301 01/22/2019 DEXAMETHASONE SODIUM PHOS CPT-4: J1100 01/22/2019 URINE CULTURE/ COLONY COUNT CPT-4: 49186 01/07/2019 URINALYSIS NONAUTO W/O SCOPE CPT-4: 13684 01/07/2019 CEFTRIAXONE SODIUM INJECTION CPT-4: J0696 01/07/2019 THER/PROPH/DIAG INJ SC/IM CPT-4: 15922 01/07/2019 FLU VACC PRSV FREE INC ANTIG 65 AND OLDER CPT-4: 71722 12/24/2018 FLU VACC PRSV FREE INC ANTIG 65 AND OLDER CPT-4: 58068 12/24/2018 ADMIN INFLUENZA VIRUS VAC CPT-4: G0008 12/24/2018 THER/PROPH/DIAG INJ SC/IM CPT-4: 96099 11/04/2018 KETOROLAC TROMETHAMINE INJ CPT-4: J1885 11/04/2018 PROMETHAZINE HCL INJECTION CPT-4: J2550 11/04/2018 PPPS, subseq visit CPT-4: G0439 09/18/2018 THER/PROPH/DIAG INJ SC/IM CPT-4: 41008 04/01/2018 KETOROLAC TROMETHAMINE INJ CPT-4: J1885 04/01/2018 PROMETHAZINE HCL INJECTION CPT-4: J2550 04/01/2018 URINE CULTURE/ COLONY COUNT CPT-4: 96035 03/17/2018 URINALYSIS NONAUTO W/O SCOPE CPT-4: 78113 03/17/2018 FLU VACC PRSV FREE INC ANTIG 65 AND OLDER CPT-4: 87017 12/17/2017 PNEUMOCOCCAL VACC 23 RANDALL IM CPT-4: 42205 12/17/2017 ADMIN INFLUENZA VIRUS VAC CPT-4: G0008 12/17/2017 ADMIN PNEUMOCOCCAL VACCINE CPT-4: G0009 12/17/2017 PPPS, subseq visit CPT-4: G0439 09/17/2017 THER/PROPH/DIAG INJ SC/IM CPT-4: 70674 08/26/2017 KETOROLAC TROMETHAMINE INJ CPT-4: J1885 08/26/2017 PROMETHAZINE HCL INJECTION CPT-4: J2550 08/26/2017 URINALYSIS NONAUTO W/O SCOPE CPT-4: 40228 07/19/2017 URINE CULTURE/ COLONY COUNT CPT-4: 35974 07/19/2017 CEFTRIAXONE SODIUM INJECTION CPT-4: J0696 07/19/2017 THER/PROPH/DIAG INJ SC/IM CPT-4: 04568 07/19/2017 THER/PROPH/DIAG INJ SC/IM CPT-4: 31887 07/19/2017 TRIAMCINOLONE ACET INJ NOS CPT-4: J3301 07/19/2017 PRESCRIP TRANSMIT VIA ERX SY CPT-4: G8553 05/07/2017 PRESCRIP TRANSMIT VIA ERX SY CPT-4: G8553 02/22/2017 PRESCRIP TRANSMIT VIA ERX SY CPT-4: G8553 01/23/2017 FLU VACC PRSV FREE INC ANTIG 65 AND OLDER CPT-4: 11386 12/20/2016 PNEUMOCOCCAL VACC 13 RANDALL IM CPT-4: 98049 12/20/2016 ADMIN INFLUENZA VIRUS VAC CPT-4: G0008 12/20/2016 ADMIN PNEUMOCOCCAL VACCINE CPT-4: G0009 12/20/2016 URINALYSIS NONAUTO W/O SCOPE CPT-4: 65555 10/08/2016 URINE CULTURE/ COLONY COUNT CPT-4: 28824 10/08/2016 PRESCRIP TRANSMIT VIA ERX SY CPT-4: G8553 10/08/2016 PRESCRIP TRANSMIT VIA ERX SY CPT-4: G8553 09/19/2016 PRESCRIP TRANSMIT VIA ERX SY CPT-4: G8553 08/20/2016 PRESCRIP TRANSMIT VIA ERX SY CPT-4: G8553 02/29/2016 KETOROLAC TROMETHAMINE INJ CPT-4: J1885 02/02/2016 THER/PROPH/DIAG INJ SC/IM CPT-4: 97191 02/02/2016 PROMETHAZINE HCL INJECTION CPT-4: J2550 02/02/2016 PRESCRIP TRANSMIT VIA ERX SY CPT-4: G8553 02/02/2016 FLU VACC PRSV FREE INC ANTIG 65 AND OLDER CPT-4: 37798 01/05/2016 PPPS, subseq visit CPT-4: G0439 01/05/2016 ADMIN INFLUENZA VIRUS VAC CPT-4: G0008 01/05/2016 URINE CULTURE/ COLONY COUNT CPT-4: 34280 12/05/2015 URINALYSIS NONAUTO W/O SCOPE CPT-4: 77059 12/05/2015 PRESCRIP TRANSMIT VIA ERX SY CPT-4: G8553 12/05/2015 PRESCRIP TRANSMIT VIA ERX SY CPT-4: G8553 10/26/2015 URINALYSIS NONAUTO W/O SCOPE CPT-4: 39074 10/05/2015 URINE CULTURE/ COLONY COUNT CPT-4: 38631 10/05/2015 PRESCRIP TRANSMIT VIA ERX SY CPT-4: G8553 10/05/2015 SERVICE REQUIRED FOR PMD CPT-4: G0372 09/15/2015 PRESCRIP TRANSMIT VIA ERX SY CPT-4: G8553 09/15/2015 SPECIAL REPORTS OR FORMS CPT-4: 32531 08/25/2015 PRESCRIP TRANSMIT VIA ERX SY CPT-4: G8553 07/05/2015 URINALYSIS NONAUTO W/O SCOPE CPT-4: 69142 03/30/2015 ASSAY, GLUCOSE, BLOOD QUANT CPT-4: 31101 03/30/2015 URINE CULTURE/ COLONY COUNT CPT-4: 03984 03/30/2015 PRESCRIP TRANSMIT VIA ERX SY CPT-4: G8553 03/30/2015 PRESCRIP TRANSMIT VIA ERX SY CPT-4: G8553 02/03/2015 FLU VACC PRSV FREE INC ANTIG 65 AND OLDER CPT-4: 92526 12/29/2014 ADMIN INFLUENZA VIRUS VAC CPT-4: G0008 12/29/2014 PRESCRIP TRANSMIT VIA ERX SY CPT-4: G8553 12/29/2014 PRESCRIP TRANSMIT VIA ERX SY CPT-4: G8553 09/02/2014 PROTEIN/CREAT URINE WITH RATIO CPT-4: 05300|93503 5 MICROALBUMIN QUANTITATIVE CPT-4: 86254 04/01/2014 PRESCRIP TRANSMIT VIA ERX SY CPT-4: G8553 03/16/2014 PRESCRIP TRANSMIT VIA ERX SY CPT-4: G8553 03/09/2014 THER/PROPH/DIAG INJ SC/IM CPT-4: 27560 03/01/2014 TRIAMCINOLONE ACET INJ NOS CPT-4: J3301 03/01/2014 PRESCRIP TRANSMIT VIA ERX SY CPT-4: G8553 02/09/2014 URINE CULTURE/ COLONY COUNT CPT-4: 81040 10/30/2013 URINALYSIS NONAUTO W/O SCOPE CPT-4: 57029 10/21/2013 URINE CULTURE/ COLONY COUNT CPT-4: 97562 10/21/2013 DESTRUCT PREMALG LESION (Cryosurgery) CPT-4: 44007 PRESCRIP TRANSMIT VIA ERX SY CPT-4: G8553 10/05/2013 URINALYSIS NONAUTO W/O SCOPE CPT-4: 70057 08/04/2013 URINE CULTURE/ COLONY COUNT CPT-4: 97518 08/04/2013 PRESCRIP TRANSMIT VIA ERX SY CPT-4: G8553 08/04/2013 THER/PROPH/DIAG INJ SC/IM CPT-4: 42786 07/13/2013 TRIAMCINOLONE ACET INJ NOS CPT-4: J3301 07/13/2013 PRESCRIP TRANSMIT VIA ERX SY CPT-4: G8553 05/27/2013 URINALYSIS NONAUTO W/O SCOPE CPT-4: 49419 05/25/2013 URINE CULTURE/ COLONY COUNT CPT-4: 71605 05/25/2013 THER/PROPH/DIAG INJ SC/IM CPT-4: 47159 05/04/2013 VITAMIN B12 INJECTION CPT-4: J3420 05/04/2013 THER/PROPH/DIAG INJ SC/IM CPT-4: 18327 04/17/2013 VITAMIN B12 INJECTION CPT-4: J3420 04/17/2013 THER/PROPH/DIAG INJ SC/IM CPT-4: 58536 04/17/2013 METHYLPREDNISOLONE 40 MG INJ CPT-4: J1030 04/17/2013 TRIAMCINOLONE ACET INJ NOS CPT-4: J3301 04/17/2013 URINALYSIS NONAUTO W/O SCOPE CPT-4: 00672 04/06/2013 URINE CULTURE/ COLONY COUNT CPT-4: 61180 04/06/2013 PRESCRIP TRANSMIT VIA ERX SY CPT-4: G8553 04/06/2013 KETOROLAC TROMETHAMINE INJ CPT-4: J1885 06/25/2012 PROMETHAZINE HCL INJECTION CPT-4: J2550 06/25/2012 THER/PROPH/DIAG INJ SC/IM CPT-4: 98370 06/25/2012 THER/PROPH/DIAG INJ SC/IM CPT-4: 68804 06/24/2012 METHYLPREDNISOLONE 40 MG INJ CPT-4: J1030 06/24/2012 TRIAMCINOLONE ACET INJ NOS CPT-4: J3301 06/24/2012 URINE CULTURE/ COLONY COUNT CPT-4: 84919 06/24/2012 THER/PROPH/DIAG INJ SC/IM CPT-4: 78293 05/20/2012 KETOROLAC TROMETHAMINE INJ CPT-4: J1885 05/20/2012 THER/PROPH/DIAG INJ SC/IM CPT-4: 46045 05/20/2012 PROMETHAZINE HCL INJECTION CPT-4: J2550 05/20/2012 DRAIN/INJECT JOINT/BURSA CPT-4: 06250 02/13/2012 METHYLPREDNISOLONE 40 MG INJ CPT-4: J1030 02/13/2012 TRIAMCINOLONE ACET INJ NOS CPT-4: J3301 02/13/2012 THER/PROPH/DIAG INJ SC/IM CPT-4: 38441 11/14/2011 METHYLPREDNISOLONE 40 MG INJ CPT-4: J1030 11/14/2011 TRIAMCINOLONE ACET INJ NOS CPT-4: J3301 11/14/2011 THER/PROPH/DIAG INJ SC/IM CPT-4: 51375 09/12/2011 KETOROLAC TROMETHAMINE INJ CPT-4: J1885 09/12/2011 THER/PROPH/DIAG INJ SC/IM CPT-4: 88812 08/09/2011 METHYLPREDNISOLONE 40 MG INJ CPT-4: J1030 08/09/2011 TRIAMCINOLONE ACET INJ NOS CPT-4: J3301 08/09/2011 URINE CULTURE/ COLONY COUNT CPT-4: 20177 07/03/2011 URINE CULTURE/ COLONY COUNT CPT-4: 02173 06/04/2011 THER/PROPH/DIAG INJ SC/IM CPT-4: 17016 05/03/2011 METHYLPREDNISOLONE 40 MG INJ CPT-4: J1030 05/03/2011 TRIAMCINOLONE ACET INJ NOS CPT-4: J3301 05/03/2011 URINALYSIS NONAUTO W/O SCOPE CPT-4: 46121 01/24/2011 URINE CULTURE/ COLONY COUNT CPT-4: 67702 01/24/2011 FLUZONE, 5ML (Medicare) CPT-4: Q2038 01/02/2011 ADMIN INFLUENZA VIRUS VAC CPT-4: G0008 01/02/2011 ASSAY, GLUCOSE, BLOOD QUANT CPT-4: 27906 12/07/2010 URINE CULTURE/ COLONY COUNT CPT-4: 17898 11/02/2010 THER/PROPH/DIAG INJ SC/IM CPT-4: 48423 10/18/2010 METHYLPREDNISOLONE 40 MG INJ CPT-4: J1030 10/18/2010 TRIAMCINOLONE ACET INJ NOS CPT-4: J3301 10/18/2010 TRIAMCINOLONE ACET INJ NOS CPT-4: J3301 05/11/2010 METHYLPREDNISOLONE 40 MG INJ CPT-4: J1030 05/11/2010 THER/PROPH/DIAG INJ SC/IM CPT-4: 14228 05/11/2010 TRIAMCINOLONE ACET INJ NOS CPT-4: J3301 02/09/2010 METHYLPREDNISOLONE 40 MG INJ CPT-4: J1030 02/09/2010 THER/PROPH/DIAG INJ SC/IM CPT-4: 99310 02/09/2010 SERVICE REQUIRED FOR PMD CPT-4: G0372 02/09/2010 FLU VACCINE 3 YRS & > IM UP 64 CPT-4: 21874 0 PNEUMOCOCCAL VACC 23 [place]ALL IM CPT-4: 90667 12/07/2009 ADMIN INFLUENZA VIRUS VAC CPT-4: G0008 12/07/2009 ADMIN PNEUMOCOCCAL VACCINE CPT-4: G0009 12/07/2009 TRIAMCINOLONE ACET INJ NOS CPT-4: J3301 05/26/2009 THER/PROPH/DIAG INJ SC/IM CPT-4: 14849 05/26/2009 METHYLPREDNISOLONE 80 MG INJ CPT-4: J1040 [...] 1: 114/72 Code: 8480-6 BMI: 37.8 Code: 79999-3 Heart Rate 1: 72 bpm Height: 5'3" [...] 1: 106/68 Code: 8480-6 BMI: 35.7 Code: 39946-4 Heart Rate 1: 72 bpm Height: 5'4" Respiratory Rate: 20 bpm SpO2: 98% Tempera ture: 36.7 (C) / 98.0 (F) Weight: 208 lbs 04/16/2018 Blood Pressure 1: 132/82 Code: 8480-6 BMI: 37.9 Code: 17160-4 Heart Rate 1: 72 bpm Height: 5'4" Respiratory Rate: 20 bpm SpO2: 96% Tempera ture: 37.1 (C) / 98.8 (F) Weight: 221 lbs 04/01/2018 Blood Pressure 1: 150/90 Code: 8480-6 Heart Rate 1: 72 bpm Respiratory Rate: 22 bpm SpO2: 95% Temperature: 36.4 (C) / 97.6 (F) We ight: 216 lbs 03/06/2018 Blood Pressure 1: 126/78 Code: 8480-6 BMI: 37.4 Code: 10203-3 Heart Rate 1: 68 bpm Height: 5'4" [...] ight: 222 lbs 12/25/2017 BMI: 37.8 Code: 95231-5 Heart Rate 1: 76 bpm Height: 5 '4" Respiratory Rate: 20 bpm SpO2: 96% Temperature: 37.3 (C) / 99.2 (F) Weight: 220 lbs 12/17/2017 Blood Pressure 1: 132/78 Code: 8480-6 BMI: 37.2 Code: 41613-9 Heart Rate 1: 88 bpm Height: 5'4" Respiratory Rate: 20 bpm SpO2: 96% Tempera ture: 37.3 (C) / 99.2 (F) Weight: 217 lbs 10/30/2017 Blood Pressure 1: 114/68 Code: 8480-6 BMI: 36.4 Code: 38480-7 Heart Rate 1: 72 bpm Height: 5'4" Respiratory Rate: 22 bpm SpO2: 96% Tempera ture: 36.8 (C) / 98.2 (F) Weight: 212 lbs 10/23/2017 Blood Pressure 1: 124/78 Code: 8480-6 Heart Rate 1: 72 bpm Respiratory Rate: 24 bpm SpO2: 94% Temperature: 36.6 (C) / 97.9 (F) We ight: 212 lbs 09/17/2017 Blood Pressure 1: 128/82 Code: 8480-6 BMI: 37.4 Code: 63011-2 Heart Rate 1: 72 bpm Height: 5'4" Respiratory Rate: 20 bpm SpO2: 96% Tempera ture: 37.0 (C) / 98.6 (F) Weight: 218 lbs 07/19/2017 Blood Pressure 1: 136/84 Code: 8480-6 BMI: 36.6 Code: 82675-7 Heart Rate 1: 88 bpm Height: 5'4" Respiratory Rate: 20 bpm SpO2: 97% Tempera ture: 36.7 (C) / 98.0 (F) Weight: 213 lbs 05/29/2017 Blood Pressure 1: 136/82 Code: 8480-6 BMI: 36.7 Code: 56199-2 Heart Rate 1: 72 bpm Height: 5'4" Respiratory Rate: 20 bpm SpO2: 97% Tempera ture: 36.9 (C) / 98.4 (F) Weight: 214 lbs 05/07/2017 Blood Pressure 1: 122/80 Code: 8480-6 BMI: 37.1 Code: 35821-4 Heart Rate 1: 80 bpm Height: 5'4" Respiratory Rate: 24 bpm SpO2: 96% Tempera ture: 36.1 (C) / 97.0 (F) Weight: 216 lbs 03/18/2017 BMI: 36.7 Code: 87779-2 Heart Rate 1: 80 bpm Height: 5 '4" Respiratory Rate: 22 bpm SpO2: 95% Temperature: 36.9 (C) / 98.4 (F) Weight: 214 lbs 02/27/2017 Blood Pressure 1: 146/94 Code: 8480-6 BMI: 36.6 Code: 00294-8 Heart Rate 1: 76 bpm Height: 5'4" Respiratory Rate: 22 bpm SpO2: 97% Tempera ture: 36.6 (C) / 97.9 (F) Weight: 213 lbs 02/22/2017 Blood Pressure 1: 126/90 Code: 8480-6 BMI: 36.4 Code: 74375-5 Heart Rate 1: 84 bpm Height: 5'4" Respiratory Rate: 22 bpm SpO2: 95% Tempera ture: 36.9 (C) / 98.4 (F) Weight: 212 lbs 01/23/2017 Blood Pressure 1: 146/82 Code: 8480-6 BMI: 37.6 Code: 43701-2 Heart Rate 1: 96 bpm Height: 5'4" Respiratory Rate: 20 bpm SpO2: 96% Tempera ture: 36.9 (C) / 98.4 (F) Weight: 219 lbs 12/20/2016 Blood Pressure 1: 126/70 Code: 8480-6 BMI: 37.2 Code: 50771-6 Heart Rate 1: 76 bpm Height: 5'4" Respiratory Rate: 22 bpm SpO2: 95% Tempera ture: 36.6 (C) / 97.8 (F) Weight: 217 lbs 10/08/2016 Blood Pressure 1: 128/82 Code: 8480-6 BMI: 36.9 Code: 02142-6 Heart Rate 1: 76 bpm Height: 5'4" Respiratory Rate: 20 bpm SpO2: 95% Tempera ture: 37.0 (C) / 98.6 (F) Weight: 215 lbs 09/19/2016 Blood Pressure 1: 14478 Code: 8480-6 BMI: 37.8 Code: 21855-2 Heart Rate 1: 76 bpm Height: 5'4" Respiratory Rate: 22 bpm SpO2: 95% Tempera ture: 37.0 (C) / 98.6 (F) Weight: 220 lbs 08/20/2016 Blood Pressure 1: 140/86 Code: 8480-6 BMI: 37.4 Code: 51546-9 Heart Rate 1: 80 bpm Height: 5'4" Respiratory Rate: 20 bpm SpO2: 95% Tempera ture: 36.9 (C) / 98.4 (F) Weight: 218 lbs 06/19/2016 Blood Pressure 1: 12478 Code: 8480-6 BMI: 37.8 Code: 83465-4 Heart Rate 1: 74 bpm Height: 5'4" Respiratory Rate: 24 bpm SpO2: 96% Tempera ture: 36.9 (C) / 98.4 (F) Weight: 220 lbs 06/04/2016 Blood Pressure 1: 124 Code: 8480-6 BMI: 38.8 Code: 32584-8 Heart Rate 1: 72 bpm Height: 5'4" Respiratory Rate: 24 bpm SpO2: 95% Tempera ture: 36.8 (C) / 98.2 (F) Weight: 226 lbs 05/02/2016 Blood Pressure 1: 136/90 Code: 8480-6 BMI: 37.6 Code: 76768-6 Heart Rate 1: 72 bpm Height: 5'4" Respiratory Rate: 24 bpm SpO2: 96% Tempera ture: 36.9 (C) / 98.4 (F) Weight: 219 lbs 04/03/2016 Blood Pressure 1: 126/78 Code: 8480-6 BMI: 38.1 Code: 25942-7 Heart Rate 1: 72 bpm Height: 5'4" Respiratory Rate: 22 bpm SpO2: 94% Tempera ture: 36.9 (C) / 98.4 (F) Weight: 222 lbs 02/29/2016 Blood Pressure 1: 132/78 Code: 8480-6 Heart Rate 1: 78 bpm Height: Respiratory Rate: 24 bpm SpO2: 95% Temperature: 36.4 (C) / 97.6 (F) We ight: 02/02/2016 Blood Pressure 1: 124/78 Code: 8480-6 BMI: 37.6 Code: 18004-1 Heart Rate 1: 76 bpm Height: 5'4" Respiratory Rate: 20 bpm SpO2: 95% Tempera ture: 36.8 (C) / 98.2 (F) Weight: 219 lbs 01/05/2016 Blood Pressure 1: 126/70 Code: 8480-6 BMI: 37.1 Code: 55656-3 Heart Rate 1: 76 bpm Height: 5'4" Respiratory Rate: 20 bpm Temperature: 36 .6 (C) / 97.8 (F) Weight: 216 lbs 12/05/2015 Blood Pressure 1: 126/72 Code: 8480-6 BMI: 36.9 Code: 57184-0 Heart Rate 1: 92 bpm Height: 5'4" Respiratory Rate: 20 bpm Temperature: 36 .7 (C) / 98.1 (F) Weight: 215 lbs 10/26/2015 Blood Pressure 1: 142/80 Code: 8480-6 BMI: 36.4 Code: 32269-0 Heart Rate 1: 82 bpm Height: 5'4" Respiratory Rate: 24 bpm SpO2: 92% Tempera ture: 35.9 (C) / 96.7 (F) Weight: 212 lbs 10/05/2015 Blood Pressure 1: 136/82 Code: 8480-6 Heart Rate 1: 80 bpm Respiratory Rate: 18 bpm SpO2: 98% Temperature: 35.7 (C) / 96.3 (F) We ight: 214 lbs 09/15/2015 Blood Pressure 1: 116/80 Code: 8480-6 BMI: 34.6 Code: 50759-7 Heart Rate 1: 76 bpm Height: 5'6" Respiratory Rate: 20 bpm Temperature: 36 .6 (C) / 97.9 (F) Weight: 211 lbs 08/24/2015 Blood Pressure 1: 124/80 Code: 8480-6 BMI: 34.1 Code: 80111-5 Heart Rate 1: 68 bpm Height: 5'6" Respiratory Rate: 20 bpm Temperature: 36 .8 (C) / 98.3 (F) Weight: 208 lbs 07/05/2015 Blood Pressure 1: 114/78 Code: 8480-6 BMI: 33.9 Code: 75277-4 Heart Rate 1: 80 bpm Height: 5'6" Respiratory Rate: 20 bpm Temperature: 36 .6 (C) / 97.9 (F) Weight: 207 lbs 06/06/2015 Blood Pressure 1: 122/78 Code: 8480-6 BMI: 34.1 Code: 47977-8 Heart Rate 1: 76 bpm Height: 5'6" Respiratory Rate: 24 bpm SpO2: 96% Tempera ture: 36.4 (C) / 97.6 (F) Weight: 208 lbs 05/23/2015 Blood Pressure 1: 124/78 Code: 8480-6 Heart Rate 1: 76 bpm Respiratory Rate: 24 bpm SpO2: 93% Temperature: 36.8 (C) / 98.2 (F) We ight: 212 lbs 05/05/2015 Blood Pressure 1: 136/80 Code: 8480-6 BMI: 35.4 Code: 80952-3 Heart Rate 1: 76 bpm Height: 5'6" Respiratory Rate: 28 bpm Temperature: 37 .0 (C) / 98.6 (F) Weight: 216 lbs 03/30/2015 Blood Pressure 1: 132/86 Code: 8480-6 BMI: 35.2 Code: 77056-3 Heart Rate 1: 84 bpm Height: 5'6" Respiratory Rate: 24 bpm Temperature: 36 .7 (C) / 98.0 (F) Weight: 215 lbs 02/03/2015 Blood Pressure 1: 122/74 Code: 8480-6 BMI: 35.7 Code: 23328-0 Heart Rate 1: 84 bpm Height: 5'6" Respiratory Rate: 20 bpm Temperature: 36 .9 (C) / 98.5 (F) Weight: 218 lbs 12/29/2014 Blood Pressure 1: 132/80 Code: 8480-6 BMI: 35.1 Code: 19547-0 Heart Rate 1: 80 bpm Height: 5'6" Respiratory Rate: 20 bpm Temperature: 36 .6 (C) / 97.8 (F) Weight: 214 lbs 09/02/2014 Blood Pressure 1: 128/92 Code: 8480-6 BMI: 34.7 Code: 31076-8 Heart Rate 1: 84 bpm Height: 5'6" Respiratory Rate: 26 bpm Temperature: 36 .8 (C) / 98.2 (F) Weight: 212 lbs 08/25/2014 Blood Pressure 1: 124/80 Code: 8480-6 BMI: 34.7 Code: 36670-4 Heart Rate 1: 78 bpm Height: 5'6" Respiratory Rate: 22 bpm SpO2: 97% Tempera ture: 36.6 (C) / 97.8 (F) Weight: 212 lbs 04/01/2014 Blood Pressure 1: 142/84 Code: 8480-6 BMI: 34.4 Code: 99868-6 Heart Rate 1: 74 bpm Height: 5'5" Respiratory Rate: 20 bpm Temperature: 36 .4 (C) / 97.6 (F) Weight: 207 lbs 03/16/2014 Blood Pressure 1: 142/90 Code: 8480-6 BMI: 34.6 Code: 84616-9 Heart Rate 1: 76 bpm Height: 5'5" Respiratory Rate: 24 bpm Temperature: 36 .5 (C) / 97.7 (F) Weight: 208 lbs 03/09/2014 Blood Pressure 1: 116/70 Code: 8480-6 BMI: 35.3 Code: 19982-5 Heart Rate 1: 72 bpm Height: 5'5" [...] 1: 128/86 Code: 8480-6 BMI: 34.3 Code: 21132-6 Heart Rate 1: 84 bpm Height: 5'5" Respiratory Rate: 20 bpm Temperature: 36 .7 (C) / 98.0 (F) Weight: 206 lbs 12/23/2013 Blood Pressure 1: 122/70 Code: 8480-6 BMI: 34.3 Code: 70921-2 Heart Rate 1: 68 bpm Height: 5'5" Respiratory Rate: 20 bpm Temperature: 36 .8 (C) / 98.2 (F) Weight: 206 lbs 10/05/2013 Blood Pressure 1: 118/76 Code: 8480-6 BMI: 34.1 Code: 67946-9 Heart Rate 1: 68 bpm Height: 5'5" Respiratory Rate: 20 bpm SpO2: 98% Tempera ture: 36.6 (C) / 97.9 (F) Weight: 205 lbs 08/04/2013 Blood Pressure 1: 126/82 Code: 8480-6 BMI: 33.3 Code: 71516-3 Heart Rate 1: 76 bpm Height: 5'5" Respiratory Rate: 20 bpm Temperature: 36 .8 (C) / 98.2 (F) Weight: 200 lbs 07/03/2013 Blood Pressure 1: 124/82 Code: 8480-6 BMI: 33.3 Code: 30558-4 Heart Rate 1: 72 bpm Height: 5'5" Respiratory Rate: 22 bpm Temperature: 36 .1 (C) / 97.0 (F) Weight: 200 lbs 05/27/2013 Blood Pressure 1: 126/82 Code: 8480-6 Heart Rate 1: 74 bpm Respiratory Rate: 20 bpm Temperature: 36.0 (C) / 96.8 (F) Weight: 199 lbs 04/06/2013 Blood Pressure 1: 118/80 Code: 8480-6 BMI: 35.2 Code: 28327-5 Heart Rate 1: 80 bpm Height: 5'4" Respiratory Rate: 20 bpm Temperature: 37 .4 (C) / 99.3 (F) Weight: 205 lbs 11/10/2012 Blood Pressure 1: 128/82 Code: 8480-6 Heart Rate 1: 84 bpm Respiratory Rate: 20 bpm Temperature: 36.7 (C) / 98.0 (F) Weight: 199 lbs 09/02/2012 Blood Pressure 1: 116/82 Code: 8480-6 BMI: 34.2 Code: 02823-6 Heart Rate 1: 88 bpm Height: 5'4" Respiratory Rate: 22 bpm Temperature: 36 .6 (C) / 97.8 (F) Weight: 199 lbs 08/04/2012 Blood Pressure 1: 128/74 Code: 8480-6 BMI: 34.0 Code: 22359-5 Heart Rate 1: 92 bpm Height: 5'4" Respiratory Rate: 20 bpm Temperature: 36 .4 (C) / 97.5 (F) Weight: 198 lbs 07/21/2012 Blood Pressure 1: 12486 Code: 8480-6 Heart Rate 1: 116 bpm Respiratory Rate: 24 bpm Temperature: 36.8 (C) / 98.2 (F) 07/02/2012 Blood Pressure 1: 116/88 Code: 8480-6 BMI: 33.6 Code: 65449-3 Heart Rate 1: 76 bpm Height: 5'4" Respiratory Rate: 20 bpm Temperature: 36 .8 (C) / 98.3 (F) Weight: 196 lbs 06/24/2012 Blood Pressure 1: 124/80 Code: 8480-6 BMI: 34.3 Code: 17625-5 Heart Rate 1: 72 bpm Height: 5'4" SpO2: 96% Temperature: 36.3 (C) / 97.3 (F) Weight: 200 lbs 05/20/2012 Blood Pressure 1: 116/88 Code: 8480-6 BMI: 33.8 Code: 41527-2 Heart Rate 1: 80 bpm Height: 5'4" Respiratory Rate: 22 bpm Temperature: 36 .9 (C) / 98.4 (F) Weight: 197 lbs 05/08/2012 Blood Pressure 1: 128/86 Code: 8480-6 BMI: 33.8 Code: 58866-7 Heart Rate 1: 76 bpm Height: 5'4" Respiratory Rate: 26 bpm SpO2: 95% Tempera ture: 36.1 (C) / 97.0 (F) Weight: 197 lbs 04/22/2012 Blood Pressure 1: 106/64 Code: 8480-6 BMI: 33.8 Code: 13819-6 Heart Rate 1: 70 bpm Height: 5'4" Temperature: 36.1 (C) / 97.0 (F) Weight: 197 lbs 02/13/2012 Blood Pressure 1: 126/82 Code: 8480-6 BMI: 34.7 Code: 31739-4 Heart Rate 1: 64 bpm Height: 5'4" Respiratory Rate: 20 bpm Temperature: 36 .6 (C) / 97.8 (F) Weight: 202 lbs 01/28/2012 Blood Pressure 1: 116/80 Code: 8480-6 BMI: 34.7 Code: 11853-6 Heart Rate 1: 76 bpm Height: 5'4" Respiratory Rate: 20 bpm Temperature: 36 .8 (C) / 98.3 (F) Weight: 202 lbs 12/26/2011 Blood Pressure 1: 132/82 Code: 8480-6 BMI: 36.0 Code: 98317-9 Heart Rate 1: 68 bpm Height: 5'4" Respiratory Rate: 22 bpm Temperature: 36 .7 (C) / 98.0 (F) Weight: 210 lbs 11/14/2011 Blood Pressure 1: 124/80 Code: 8480-6 BMI: 36.4 Code: 21737-4 Heart Rate 1: 76 bpm Height: 5'4" Respiratory Rate: 20 bpm Temperature: 36 .8 (C) / 98.2 (F) Weight: 212 lbs 09/12/2011 Blood Pressure 1: 108/74 Code: 8480-6 BMI: 37.1 Code: 27199-8 Heart Rate 1: 72 bpm Height: 5'4" Respiratory Rate: 20 bpm Temperature: 37 .0 (C) / 98.6 (F) Weight: 216 lbs 08/15/2011 Blood Pressure 1: 122/80 Code: 8480-6 BMI: 36.9 Code: 94271-9 Heart Rate 1: 76 bpm Height: 5'4" Respiratory Rate: 20 bpm Temperature: 36 .2 (C) / 97.1 (F) Weight: 215 lbs 08/09/2011 Blood Pressure 1: 112/78 Code: 8480-6 BMI: 36.9 Code: 39735-2 Heart Rate 1: 68 bpm Height: 5'4" Respiratory Rate: 20 bpm Temperature: 36 .7 (C) / 98.0 (F) Weight: 215 lbs 07/03/2011 Blood Pressure 1: 140/94 Code: 8480-6 BMI: 36.2 Code: 38908-4 Heart Rate 1: 68 bpm Height: 5'4" Temperature: 36.0 (C) / 96.8 (F) Weight: 211 lbs 06/04/2011 Blood Pressure 1: 124/70 Code: 8480-6 BMI: 36.7 Code: 16728-6 Heart Rate 1: 68 bpm Height: 5'4" Respiratory Rate: 20 bpm Temperature: 36 .6 (C) / 97.9 (F) Weight: 214 lbs 05/03/2011 Blood Pressure 1: 130/76 Code: 8480-6 BMI: 36.4 Code: 87093-1 Heart Rate 1: 74 bpm Height: 5'5" Temperature: 36.2 (C) / 97.2 (F) Weight: 219 lbs 04/05/2011 Blood Pressure 1: 124/86 Code: 8480-6 BMI: 35.9 Code: 43303-0 Heart Rate 1: 76 bpm Height: 5'6" Respiratory Rate: 22 bpm Temperature: 36 .3 (C) / 97.3 (F) Weight: 219 lbs 03/08/2011 Blood Pressure 1: 112/78 Code: 8480-6 BMI: 35.1 Code: 01738-6 Heart Rate 1: 80 bpm Height: 5'6" Respiratory Rate: 26 bpm Temperature: 36 .9 (C) / 98.4 (F) Weight: 214 lbs 01/24/2011 Blood Pressure 1: 110/82 Code: 8480-6 BMI: 35.6 Code: 47793-1 Heart Rate 1: 80 bpm Height: 5'6" Temperature: 36.1 (C) / 97.0 (F) Weight: 217 lbs 01/02/2011 Blood Pressure 1: 106/72 Code: 8480-6 BMI: 35.6 Code: 55503-2 Heart Rate 1: 76 bpm Height: 5'6" [...] 1: 120/74 Code: 8480-6 BMI: 35.9 Code: 76733-2 Heart Rate 1: 72 bpm Height: 5'5" Temperature: 36.3 (C) / 97.4 (F) Weight: 216 lbs 09/19/2010 Blood Pressure 1: 124/80 Code: 8480-6 BMI: 35.4 Code: 26855-8 Heart Rate 1: 76 bpm Height: 5'5" [...] 1: 122/78 Code: 8480-6 BMI: 37.4 Code: 51914-5 Heart Rate 1: 84 bpm Height: 5'5" Weight: 225 lbs Functional Status No Functional Status data Reason For Visit Reason For Visit Effective Dates Notes dyspnea 05/13/[address] of chest [...] low blood pressure follow up 05/21/2018 Hospital fw follow up 04/16/2018 ER fwup myalgias 04/01/2018 painful urination 03/17/2018 follow up 03/06/2018 ER fwup neck pain 02/05/2018 right side neck pain 01/20/2018 muscle relaxers are not working follow up 12/25/2017 pruritus 12/17/2017 follow up 10/30/2017 follow up 10/23/2017 Hospital fw from [facility] Annual Checkup 09/17/2017 Wellness Physical fo r [...] 07/24/16 follow up 06/19/2016 1 week [facility] owup follow up 06/04/2016 1mo fwup follow up 05/02/2016 [facility] fwup follow up 04/03/2016 dyspnea 02/29/2016 low grade 99s follow up 02/02/2016 ER fwup diabetes mellitus 01/05/2016 painful urination 12/05/2015 follow up 10/26/2015 ER visit from at [facility] for COPD Exacerbation follow up 10/05/2015 ER Visit gait abnormality 09/15/2015 Patient requesting kelly pineda paperwork to be filled out disturbances of thinking 08/24/2015 follow up 07/05/2015 4wk fwup follow up 06/06/2015 [facility] cough 05/23/2015 follow up 05/05/2015 dyspnea 03/30/2015 [facility] needs new orde r for O2 abdominal pain 02/03/2015 cyst 12/29/2014 vs abscess follow up 09/02/2014 [facility] headache 08/25/2014 facial drooping follow up 04/01/2014 ER follow up 03/16/2014 1wk fwup follow up 03/09/2014 1mo fwup and bronchi tis fwup follow up 03/03/2014 2 day follow up 03/01/2014 ER follow up 02/09/2014 [facility] gastroesophageal reflux 12/23/2013 painful urination [...] 08/04/2012 2wk fwup follow up 07/21/2012 Hospital fwup--[facility] an sore throat 07/02/2012 headache 06/25/2012 request [...] up 10/18/[address] Medrano last w [facility], having increased allergy symptoms. Would like steroid [...] month f/u follow up 12/07/2009 from [facility], done with PT--finished about 2wks ago follow up 11/08/2009 2wk fwup follow up 10/24/2009 hosp fwup ~generic 07/25/2009 bilateral earlobe re dness/swelling, pain radiating into neck, refill Demerol ~generic 05/26/2009 FALLING A LOT, SAVEL LA NOT HELPING FIBROMYALGIA PAIN, LT HAND LACERATION-FELL INTO NAIL 05/25/09 Encounters Encounter Performer Location Codes Date () OFFICE/OUTPATIENT VISIT EST Diagnosis: Chronic obstructive pulmonary disease, unspecified[ICD10: J44.9] Diagnosis: Pulmonary fibrosis[ICD10: J84.10] Diagnosis: Intermittent stridor[ICD10: R06.1] Diagnosis: Muscle weakness[ICD10: M62.81] Belia Ohara [facility] CPT-4: 78550 05/13/2019 ([id number]) OFFICE/OUTPATIENT VISIT EST Diagnosis: Stridor[ICD10: R06.1] Diagnosis: COUGH[ICD10: R05] Belia REID [facility] CPT-4: 40007 05/06/2019 ([id number]) OFFICE/OUTPATIENT VISIT EST Diagnosis: Stridor[ICD10: R06.1] Diagnosis: Muscle, jerky movements (uncontrolled)[ICD10: G25.5] Belia Shi [facility] CPT-4: 94544 04/29/2019 ([id number]) OFFICE/OUTPATIENT VISIT EST Diagnosis: Upper respiratory infection[ICD10: J06.9] Diagnosis: Flank pain[ICD10: R10.9] Diagnosis: Weight gain[ICD10: R63.5] Pattie AMBRIZ [facility] CPT-4: 59345 04/16/2019 ([id number]) OFFICE/OUTPATIENT VISIT EST Diagnosis: Generalized pruritus[ICD10: L29.9] Belia REID [facility] CPT-4: 14986 04/08/2019 ([id number]) OFFICE/OUTPATIENT VISIT EST Diagnosis: Acute bursitis of left shoulder[ICD10: M75.52] Diagnosis: Cervicalgia[ICD10: M54.2] Diagnosis: Chest wall pain[ICD10: R07.89] [facility]: 24608 01/22/2019 ([id number]) OFFICE/OUTPATIENT VISIT EST Diagnosis: Abdominal pain[ICD10: R10.9] Diagnosis: Pyelonephritis[ICD10: N12] Pattie DOMINGUEZ [facility] CPT-4: 97866 01/07/2019 ([id number]) OFFICE/OUTPATIENT VISIT EST Diagnosis: Low back pain[ICD10: M54.5] Diagnosis: Left lumbar radiculopathy[ICD10: M54.16] Diagnosis: Left flank pain[ICD10: R10.9] Diagnosis: Left lower quadrant pain[ICD10: R10.32] Diagnosis: FLU VACCINE[ICD10: Z23] Belia FREDERICK [facility] CPT-4: 42200 12/24/2018 ([id number]) OFFICE/OUTPATIENT VISIT EST Diagnosis: Migraine, unspecified, not intractable, without status migrainosus[ICD10: G43.909] Diagnosis: Fibromyalgia[ICD10: M79.7] Belia DOMINGUEZ [facility] CPT-4: 00912 11/20/2018 ([id number]) OFFICE/OUTPATIENT VISIT EST Diagnosis: Migraine, unspecified, intractable, without status migrainosus[ICD10: G43.919] Diagnosis: Acute sinusitis, unspecified[ICD10: J01.90] [facility] CPT-[facility]: 24461 11/04/2018 ([id number]) OFFICE/OUTPATIENT VISIT EST Diagnosis: Pain in left wrist[ICD10: M25.532] Diagnosis: Other dorsalgia[ICD10: M54.89] Pattie REID DO [facility] CPT-4: 77261 09/08/2018 ([id number]) OFFICE/OUTPATIENT VISIT EST Diagnosis: Acute stress reaction[ICD10: F43.0] Diagnosis: Pruritus, unspecified[ICD10: L29.9] 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, 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] Belia REID DO [facility] CPT-4: 21737 08/20/2018 ([id number]) OFFICE/OUTPATIENT VISIT EST Diagnosis: Hypotension due to drugs[ICD10: I95.2] Diagnosis: Paroxysmal atrial fibrillation[ICD10: I48.0] Diagnosis: Localized edema[ICD10: R60.0] Belia REID DO [facility] CPT-4: 64922 06/19/2018 ([id number]) OFFICE/OUTPATIENT VISIT EST Diagnosis: Generalized hyperhidrosis[ICD10: R61] Diagnosis: Essential (primary) hypertension[ICD10: I10] Diagnosis: Supraventricular tachycardia[ICD10: I47.1] Belia REID DO [facility] CPT-4: 88722 06/09/2018 ([id number]) OFFICE/OUTPATIENT VISIT EST Diagnosis: Stridor[ICD10: R06.1] Diagnosis: Dependence on supplemental oxygen[ICD10: Z99.81] Diagnosis: Weakness[ICD10: R53.1] Diagnosis: Supraventricular tachycardia[ICD10: I47.1] Belia REID DO [facility] CPT-4: 71208 05/21/2018 ([id number]) OFFICE/OUTPATIENT VISIT EST Diagnosis: Cervical disc disorder with radiculopathy, unspecified cervical region[ICD10: M50.10] Belia REID DO [facility] CPT-4: 54774 04/16/2018 ([id number]) OFFICE/OUTPATIENT VISIT EST Diagnosis: Migraine, unspecified, intractable, without status migrainosus[ICD10: G43.919] Diagnosis: Fibromyalgia[ICD10: M79.7] [facility] CPT-4: 66025 04/01/2018 ([id number]) NURSE/OUTPATIENT VISIT EST Diagnosis: Hematuria, unspecified[ICD10: R31.9] Diagnosis: Dysuria[ICD10: R30.0] Belia REID [facility] CPT-4: 36638 03/17/2018 ([id number]) OFFICE/OUTPATIENT VISIT EST Diagnosis: Erythema intertrigo[ICD10: L30.4] Diagnosis: Chronic obstructive pulmonary disease with (acute) exacerbation[ICD10: J44.1] Diagnosis: Type 2 diabetes mellitus with hyperglycemia[ICD10: E11.65] Belia REID [facility] CPT-4: 97258 03/06/2018 ([id number]) OFFICE/OUTPATIENT VISIT EST Diagnosis: Cervicalgia[ICD10: M54.2] Pattie AMBRIZ [facility] CPT-4: 35983 02/05/2018 ([id number]) OFFICE/OUTPATIENT VISIT EST Diagnosis: Candidiasis of skin and nail[ICD10: B37.2] Diagnosis: Cervicalgia[ICD10: M54.2] Pattie AMBRIZ [facility] CPT-4: 55479 01/20/2018 ([id number]) OFFICE/OUTPATIENT VISIT EST Diagnosis: Pain in thoracic spine[ICD10: M54.6] Diagnosis: Radiculopathy, thoracic region[ICD10: M54.14] Belia REID [facility] CPT-4: 92008 12/25/2017 ([id number]) OFFICE/OUTPATIENT VISIT EST Diagnosis: Pain in thoracic spine[ICD10: M54.6] Diagnosis: Other muscle spasm[ICD10: M62.838] Diagnosis: FLU VACCINE[ICD10: Z23] Diagnosis: PNEUMOCOCCAL VACCINE[ICD10: Z23] Belia REID [facility] CPT-4: 51797 12/17/2017 ([id number]) OFFICE/OUTPATIENT VISIT EST Diagnosis: Chronic obstructive pulmonary disease with (acute) exacerbation[ICD10: J44.1] Belia REID [facility] CPT- 4: 34307 10/30/2017 ([id number]) OFFICE/OUTPATIENT VISIT EST Diagnosis: Chronic obstructive pulmonary disease with acute lower respiratory infection[ICD10: J44.0] Diagnosis: Mild intermittent asthma with (acute) exacerbation[ICD10: J45.21] Belia REID DO [facility] CPT-4: 03118 10/23/2017 ([id number]) NURSE/OUTPATIENT VISIT EST Diagnosis: Migraine, unspecified, not intractable, without status migrainosus[ICD10: G43.909] Belia REID DO [facility] CPT - 4: 16790 08/26/2017 ([id number]) OFFICE/OUTPATIENT VISIT EST Diagnosis: Urinary tract infection, site not specified[ICD10: N39.0] Diagnosis: Encounter for screening for osteoporosis[ICD10: Z13.820] Diagnosis: Encounter for screening mammogram for malignant neoplasm of breast[ICD10: Z12.31] Diagnosis: Acute bronchitis, unspecified[ICD10: J20.9] Pattie REID DO [facility] CPT-4: 01094 07/19/2017 ([id number]) OFFICE/OUTPATIENT VISIT EST Diagnosis: Rash and other nonspecific skin eruption[ICD10: R21] Pattie REID DO [facility] CPT-4: 92146 05/29/2017 ([id number]) OFFICE/OUTPATIENT VISIT EST Diagnosis: Diarrhea, unspecified[ICD10: R19.7] Diagnosis: Tinea corporis[ICD10: B35.4] Diagnosis: Tinea cruris[ICD10: B35.6] Diagnosis: Migraine, unspecified, not intractable, without status migrainosus[ICD10: G43.909] Belia REID DO [facility] CPT - 4: 82926 05/07/2017 ([id number]) OFFICE/OUTPATIENT VISIT EST Diagnosis: Stridor[ICD10: R06.1] Diagnosis: Chronic obstructive pulmonary disease with (acute) exacerbation[ICD10: J44.1] Belia REID DO [facility] CPT- 4: 38882 03/18/2017 ([id number]) OFFICE/OUTPATIENT VISIT EST Diagnosis: Type 2 diabetes mellitus with hyperglycemia[ICD10: E11.65] Belia REID DO [facility] CPT-4: 28342 02/27/2017 OFFICE/OUTPATIENT VISIT EST Diagnosis: Type 2 diabetes mellitus with hyperglycemia[ICD10: E11.65] Pattie REID DO [facility] CPT-4: 73887 02/22/2017 ([id number]) OFFICE/OUTPATIENT VISIT EST Diagnosis: Urinary tract infection, site not specified[ICD10: N39.0] Diagnosis: Pneumonia, unspecified organism[ICD10: J18.9] Diagnosis: Type 2 diabetes mellitus with hyperglycemia[ICD10: E11.65] Belia REID DO [facility] CPT-4: 22961 01/23/2017 ([id number]) OFFICE/OUTPATIENT VISIT EST Diagnosis: Type 2 diabetes mellitus with hyperglycemia[ICD10: E11.65] Diagnosis: Localized edema[ICD10: R60.0] Diagnosis: PNEUMOCOCCAL VACCINE[ICD10: Z23] Diagnosis: FLU VACCINE[ICD10: Z23] Belia FREDERICK [facility] CPT-4: 66373 12/20/2016 OFFICE/OUTPATIENT VISIT EST Diagnosis: Pain in thoracic spine[ICD10: M54.6] Diagnosis: Low back pain[ICD10: M54.5] Diagnosis: Cervicalgia[ICD10: M54.2] Diagnosis: Cough[ICD10: R05] Celeste Ferreira BELIA REID DO [facility] CPT-4: 60495 10/08/2016 ([id number]) OFFICE/OUTPATIENT VISIT EST Diagnosis: Primary insomnia[ICD10: F51.01] Diagnosis: Migraine, unspecified, not intractable, without status migrainosus[ICD10: G43.909] Diagnosis: Type 2 diabetes mellitus with hyperglycemia[ICD10: E11.65] Belia REID DO [facility] CPT-4: 73671 09/19/2016 ([id number]) OFFICE/OUTPATIENT VISIT EST Diagnosis: Migraine, unspecified, not intractable, without status migrainosus[ICD10: G43.909] Diagnosis: Generalized abdominal pain[ICD10: R10.84] Diagnosis: Cough[ICD10: R05] Belia REID DO [facility] CPT-4: 35732 08/20/2016 ([id number]) OFFICE/OUTPATIENT VISIT EST Diagnosis: Chronic obstructive pulmonary disease, unspecified[ICD10: J44.9] Diagnosis: Stridor[ICD10: R06.1] Belia REID DO [facility] CPT-4: 98078 06/19/2016 ([id number]) OFFICE/OUTPATIENT VISIT EST Diagnosis: Chronic obstructive pulmonary disease, unspecified[ICD10: J44.9] Diagnosis: Personal history of urinary (tract) infections[ICD10: Z87.440] Belia REID DO [facility] CPT-4: 95191 06/04/2016 ([id number]) OFFICE/OUTPATIENT VISIT EST Diagnosis: Stridor[ICD10: R06.1] Diagnosis: Chronic obstructive pulmonary disease with acute lower respiratory infection[ICD10: J44.0] Diagnosis: Other specified diseases of intestine[ICD10: K63.89] Diagnosis: Cystitis, unspecified without hematuria[ICD10: N30.90] Belia REID [employer] [facility] CPT-4: 99858 05/02/2016 ([id number]) OFFICE/OUTPATIENT VISIT EST Diagnosis: Fibromyalgia[ICD10: M79.7] Diagnosis: Urinary tract infection, site not specified[ICD10: N39.0] Belia REID DO [facility] CPT-4: 14782 04/03/2016 ([id number]) OFFICE/OUTPATIENT VISIT EST Diagnosis: Unspecified asthma, uncomplicated[ICD10: J45.909] Diagnosis: Cough[ICD10: R05] Lidia REID [employer] [facility] T-4: 98108 02/29/2016 ([id number]) OFFICE/OUTPATIENT VISIT EST Diagnosis: Migraine, unspecified, intractable, without status migrainosus[ICD10: G43.919] Diagnosis: Urinary tract infection, site not specified[ICD10: N39.0] Belia REID [employer] [facility] CPT-4: 18552 02/02/2016 ([id number]) OFFICE/OUTPATIENT VISIT EST Diagnosis: Urinary tract infection, site not specified[ICD10: N39.0] Diagnosis: Unspecified abdominal pain[ICD10: R10.9] Diagnosis: Pain in thoracic spine[ICD10: M54.6] Diagnosis: Type 2 diabetes mellitus with diabetic neuropathic arthropathy[ICD10: E11.610] Belia Shi ZACHARYISABELLAOTONIEL [employer] [facility] CPT-4: 18067 12/05/2015 ([id number]) OFFICE/OUTPATIENT VISIT EST Diagnosis: Chronic obstructive pulmonary disease with (acute) exacerbation[ICD10: J44.1] Diagnosis: Migraine, unspecified, not intractable, without status migrainosus[ICD10: G43.909] Lidia Shi ZACHARYISABELLAOTONIEL [employer] [facility] CPT -4: 79757 10/26/2015 ([id number]) OFFICE/OUTPATIENT VISIT EST Diagnosis: Hematuria, unspecified[ICD10: R31.9] Diagnosis: Urinary tract infection, site not specified[ICD10: N39.0] Lidia Shi ZACHARYISABELLAOTONIEL [employer] [facility] CPT-4: 06575 10/05/2015 OFFICE/OUTPATIENT VISIT EST Diagnosis: Chronic obstructive pulmonary disease, unspecified[ICD10: J44.9] Diagnosis: Muscle weakness (generalized)[ICD10: M62.81] Diagnosis: Polyneuropathy, unspecified[ICD10: G62.9] Diagnosis: Other intervertebral disc degeneration, 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] Diagnosis: Fibromyalgia[ICD10: M79.7] Belia Shi RAND ALBERTO [employer] [facility] CPT-4: 64616 09/15/2015 ([id number]) OFFICE/OUTPATIENT VISIT EST Diagnosis: Disorientation, unspecified[ICD10: R41.0] Diagnosis: Headache[ICD10: R51] Diagnosis: Paresthesia of skin[ICD10: R20.2] Lidia Shi ZACHARYISABELLAOTONIEL [employer] [facility] CPT-4: 21498 08/24/2015 ([id number]) OFFICE/OUTPATIENT VISIT EST Diagnosis: Type 2 diabetes mellitus with hyperglycemia[ICD10: E11.65] Diagnosis: Chronic obstructive pulmonary disease with acute lower respiratory infection[ICD10: J44.0] Belia REID [facility] CPT-4: 16282 07/05/2015 ([id number]) OFFICE/OUTPATIENT VISIT EST Diagnosis: Mild intermittent asthma with (acute) exacerbation[ICD10: J45.21] Diagnosis: Chronic obstructive pulmonary disease, unspecified[ICD10: J44.9] Belia REID [facility] CPT-4: 71185 06/06/2015 ([id number]) OFFICE/OUTPATIENT VISIT EST Diagnosis: Chronic obstructive pulmonary disease with (acute) exacerbation[ICD10: J44.1] Lidia REID [facility] CPT- 4: 61378 05/23/2015 ([id number]) OFFICE/OUTPATIENT VISIT EST Diagnosis: Type 2 diabetes mellitus with hyperglycemia[ICD10: E11.65] Diagnosis: Functional dyspepsia[ICD10: K30] Belia REID [facility] CPT-4: 81119 05/05/2015 ([id number]) OFFICE/OUTPATIENT VISIT EST Diagnosis: Type 2 diabetes mellitus with hyperglycemia[ICD10: E11.65] Diagnosis: Glycosuria[ICD10: R81] Diagnosis: Urinary tract infection, site not specified[ICD10: N39.0] Belia REID [facility] CPT-4: 72013 03/30/2015 ([id number]) OFFICE/OUTPATIENT VISIT EST Diagnosis: Generalized abdominal pain[ICD10: R10.84] Diagnosis: Diarrhea, unspecified[ICD10: R19.7] Diagnosis: Urinary tract infection, site not specified[ICD10: N39.0] Diagnosis: Gastro-esophageal reflux disease without esophagitis[ICD10: K21.9] Belia REID [facility] CPT-4: 42686 02/03/2015 ([id number]) OFFICE/OUTPATIENT VISIT EST Diagnosis: Other specified noninflammatory disorders of vagina[ICD10: N89.8] Diagnosis: Follicular disorder, unspecified[ICD10: L73.9] Diagnosis: Functional dyspepsia[ICD10: K30] Diagnosis: FLU VACCINE[ICD10: Z23] Belia SMITH [facility] CPT-4: 99263 12/29/2014 ([id number]) OFFICE/OUTPATIENT VISIT EST 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] Diagnosis: RESTLESS LEGS SYNDROME[ICD9: 333.94] Diagnosis: MIGRAINE NOS/NOT INTRCBL[ICD9: 346.90] Belia CASILLAS JOHN PAUL TomlinsonMayda ZACHARYKATINA [facility] CPT-4: 16257 09/02/2014 ([id number]) OFFICE/OUTPATIENT VISIT EST Diagnosis: Cervical radiculopathy[ICD9: 723.4] Diagnosis: Cervicalgia[ICD9: 723.1] Diagnosis: Degenerative disc disease, cervical[ICD9: 722.4] 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I[ICD9: 250.00] Belia REID [facility] CPT-4: 45740 04/01/2014 OFFICE/OUTPATIENT VISIT EST Diagnosis: Reactive airway disease[ICD9: 493.90] [facility]: 64276 03/16/2014 ([id number]) OFFICE/OUTPATIENT VISIT EST Diagnosis: BRONCHITIS, ACUTE[ICD9: 466.0] Diagnosis: Reactive airway disease[ICD9: 493.90] Belia Shi ZACHARYKATINA [facility] CPT-4: 13057 03/09/2014 OFFICE/OUTPATIENT VISIT EST Diagnosis: BRONCHITIS, ACUTE[ICD9: 466.0] Diagnosis: WHEEZING[ICD9: 786.07] Huong Cali[employer]Kp Shi [facility]: 68347 03/03/2014 OFFICE/OUTPATIENT VISIT EST Diagnosis: BRONCHITIS, ACUTE[ICD9: 466.0] Diagnosis: WHEEZING[ICD9: 786.07] Huong [facility]: 44115 03/01/2014 ([id number]) OFFICE/OUTPATIENT VISIT EST Diagnosis: GERD[ICD9: 530.81] Diagnosis: ARTHRALGIA-MULTIPLE SITES[ICD9: 719.49] Diagnosis: LUMB/LUMBOSAC DISC DEGEN[ICD9: 722.52] Diagnosis: - I - FIBROMYALGIA[ICD9: 729.1] Belia REID DO [facility] CPT-4: 15648 02/09/2014 ([id number]) OFFICE/OUTPATIENT VISIT EST Diagnosis: Peptic ulcer disease[ICD9: 533.90] Diagnosis: RESTLESS LEGS SYNDROME[ICD9: 333.94] Diagnosis: Neuropathy[ICD9: 355.9] Belia FREDERICK DO [facility] CPT-4: 00814 12/23/2013 ([id number]) OFFICE/OUTPATIENT VISIT EST Diagnosis: URINARY TRACT INFECTION[ICD9: 599.0] Belia REID DO [facility] CPT-4: 69273 10/30/2013 ([id number]) OFFICE/OUTPATIENT VISIT EST Diagnosis: Flank pain[ICD9: 789.00] Belia MARTINEZ [facility] CPT-4: 83052 10/21/2013 ([id number]) OFFICE/OUTPATIENT VISIT EST Diagnosis: INFLAMED SEBORR KERATOS[ICD9: 702.11] Diagnosis: Brachioradial pruritus[ICD9: 698.9] Diagnosis: ASTHMA NOS[ICD9: 493.90] Belia POOLE [facility] CPT-4: 37979 10/05/2013 ([id number]) OFFICE/OUTPATIENT VISIT EST Diagnosis: HYPERTENSION[ICD9: 401.9] Diagnosis: - I - FIBROMYALGIA[ICD9: 729.1] Diagnosis: DIZZINESS/VERTIGO[ICD9: 780.4] Diagnosis: MIGRAINE NOS/NOT INTRCBL[ICD9: 346.90] Diagnosis: Diabetic peripheral neuropathy[ICD9: 250.60] Diagnosis: Flank pain[ICD9: 789.00] Belia MARTINEZ [facility] CPT-4: 08833 08/04/2013 ([id number]) OFFICE/OUTPATIENT VISIT EST Diagnosis: ALLERGIC RHINITIS[ICD9: 477.9] Belia REID DO [facility] CPT-4: 76998 07/13/2013 OFFICE/OUTPATIENT VISIT EST Diagnosis: URINARY TRACT INFECTION[ICD9: 599.0] Huong [place] KRAIG REID DO [facility] CPT-4: 44351 07/03/2013 OFFICE/OUTPATIENT VISIT EST Diagnosis: HYPERTENSION[ICD9: 401.9] Diagnosis: URINARY TRACT INFECTION[ICD9: 599.0] Diagnosis: BACKACHE[ICD9: 724.5] Diagnosis: URINARY INCONTINENCE[ICD9: 788.30] Huong De LunaFidepool ARACELISSONIA REID [facility] CPT-4: 52021 05/27/2013 ([id number]) OFFICE/OUTPATIENT VISIT EST Diagnosis: Flank pain[ICD9: 789.00] Belia Zacharykatina BRUNSON BushraMayda KIESHA VIRGILIO [facility] CPT-4: 63403 05/25/2013 ([id number]) OFFICE/OUTPATIENT VISIT EST Diagnosis: B-COMPLEX DEFIC NEC[ICD9: 266.2] Belia Zacharykatina BELIA BushraMayda [facility] CPT-[facility]: 13843 05/04/2013 ([id number]) OFFICE/OUTPATIENT VISIT EST Diagnosis: ALLERGIC RHINITIS[ICD9: 477.9] Diagnosis: Vitamin B12 deficiency[ICD9: 266.2] Belia Zacharykatina THOMPSON Yuridia [facility] CPT-4: 43621 04/17/2013 ([id number]) OFFICE/OUTPATIENT VISIT EST 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I[ICD9: 250.00] Diagnosis: URINARY TRACT INFECTION[ICD9: 599.0] Diagnosis: DIZZINESS/VERTIGO[ICD9: 780.4] Diagnosis: DIARRHEA[ICD9: 787.91] Belia Zacharykatina BRUNSON BushraMayda RALF Peguero [facility] CPT-4: 96269 04/06/2013 ([id number]) OFFICE/OUTPATIENT VISIT EST Diagnosis: URINARY TRACT INFECTION[ICD9: 599.0] Diagnosis: URINARY RETENTION[ICD9: 788.20] Belia Zacharykatina BELIA BushraMayda ANUSHKA [facility] CPT-4: 71451 11/10/2012 ([id number]) OFFICE/OUTPATIENT VISIT EST Diagnosis: TACHYCARDIA[ICD9: 785.0] Diagnosis: SYNCOPE AND COLLAPSE[ICD9: 780.2] Diagnosis: CONSCIOUSNS ALTERAT NEC[ICD9: 780.09] Belia CALVO BushraMayda [facility] CPT-4: 42907 09/02/2012 OFFICE/OUTPATIENT VISIT EST Diagnosis: TACHYCARDIA[ICD9: 785.0] Diagnosis: SYNCOPE AND COLLAPSE[ICD9: 780.2] Belia Humphriesisabellaotoniel CORNELLLIN Reggie REID [facility] CPT-4: 56322 08/04/2012 ([id number]) OFFICE/OUTPATIENT VISIT EST Diagnosis: Loss of consciousness[ICD9: 780.09] Diagnosis: Tachycardia[ICD9: 785.0] Diagnosis: MALAISE AND FATIGUE[ICD9: 780.79] Belia Humphrieskatina KOFFI Reggie [facility] CPT-4: 83876 07/21/2012 ([id number]) OFFICE/OUTPATIENT VISIT EST Diagnosis: BRONCHITIS, ACUTE[ICD9: 466.0] Diagnosis: ASTHMA NOS[ICD9: 493.90] Belia Zacharykatina BELIA BushraMayda KIESHA POOLE [facility] CPT-4: 57200 07/02/2012 ([id number]) OFFICE/OUTPATIENT VISIT EST Diagnosis: CEPHALGIA[ICD9: 784.0] Beliahanna BRUNSON BushraMayda RALF Peguero [facility] CPT-4: 62808 06/25/2012 ([id number]) OFFICE/OUTPATIENT VISIT EST Diagnosis: GERD[ICD9: 530.81] Diagnosis: DIARRHEA[ICD9: 787.91] Diagnosis: URINARY TRACT INFECTION[ICD9: 599.0] Diagnosis: ASTHMA NOS[ICD9: 493.90] Diagnosis: ALLERGIC RHINITIS[ICD9: 477.9] Belia Zacharykatina BELIA Bushra Mayda [facility] CPT-[facility]: 01842 06/24/2012 ([id number]) OFFICE/OUTPATIENT VISIT EST Diagnosis: MIGRAINE NOS/NOT INTRCBL[ICD9: 346.90] Diagnosis: TREMOR NEC[ICD9: 333.1] Diagnosis: CHRONIC PAIN SYNDROME[ICD9: 338.4] Belia Zacharykatina SALAZAR Yuridia SMITH [employer] [facility] CPT-4: 34521 05/20/2012 ([id number]) OFFICE/OUTPATIENT VISIT EST Diagnosis: DIZZINESS/VERTIGO[ICD9: 780.4] Diagnosis: PALPITATIONS[ICD9: 785.1] Diagnosis: TREMOR NEC[ICD9: 333.1] Diagnosis: ANXIETY STATE NOS[ICD9: 300.00] Diagnosis: POSTTRAUMATIC STRESS DISORDER[ICD9: 309.81] Belia REID [employer] [facility] CPT-4: 53926 05/08/2012 ([id number]) OFFICE/OUTPATIENT VISIT EST Diagnosis: MIGRAINE NOS/NOT INTRCBL[ICD9: 346.90] Diagnosis: FIBROMYALGIA[ICD9: 729.1] Diagnosis: SYNCOPE AND COLLAPSE[ICD9: 780.2] Diagnosis: Diabetic peripheral neuropathy[ICD9: 250.60] Belia REID [employer] [facility] CPT-4: 34947 04/22/2012 OFFICE/OUTPATIENT VISIT EST Diagnosis: ROTATOR CUFF DIS NEC[ICD9: 726.19] Diagnosis: JOINT PAIN-SHLDER[ICD9: 719.41] Diagnosis: DYSPEPSIA[ICD9: 536.8] Belia Peguero [employer] [facility] CPT-4: 96710 02/13/2012 ([id number]) OFFICE/OUTPATIENT VISIT EST Diagnosis: MIGRAINE NOS/NOT INTRCBL[ICD9: 346.90] Diagnosis: GERD[ICD9: 530.81] Diagnosis: DYSPEPSIA[ICD9: 536.8] Belia Peguero [employer] [facility] CPT-4: 55022 01/28/2012 OFFICE/OUTPATIENT VISIT EST Diagnosis: CEPHALGIA[ICD9: 784.0] Diagnosis: MIGRAINE NOS/NOT INTRCBL[ICD9: 346.90] Diagnosis: GERD[ICD9: 530.81] Diagnosis: INSOMNIA NOS[ICD9: 780.52] Belia DAILEYER [employer] [facility] CPT-4: 56660 12/26/2011 ([id number]) OFFICE/OUTPATIENT VISIT EST Diagnosis: CEPHALGIA[ICD9: 784.0] Diagnosis: MIGRAINE NOS/NOT INTRCBL[ICD9: 346.90] Diagnosis: MALAISE AND FATIGUE[ICD9: 780.79] Diagnosis: FIBROMYALGIA[ICD9: 729.1] Diagnosis: ALLERGIC RHINITIS[ICD9: 477.9] Belia REID [employer] [facility] CPT-4: 57994 11/14/2011 ([id number]) OFFICE/OUTPATIENT VISIT EST Diagnosis: MALAISE AND FATIGUE[ICD9: 780.79] Diagnosis: MUSCLE WEAKNESS-GENERAL[ICD9: 728.87] Diagnosis: MIGRAINE NOS/NOT INTRCBL[ICD9: 346.90] Diagnosis: JOINT PAIN-SHLDER[ICD9: 719.41] Belia REID [facility] CPT-4: 16831 09/12/2011 ([id number]) OFFICE/OUTPATIENT VISIT EST Diagnosis: CONCUSSION[ICD9: 850.9] Diagnosis: Ataxia[ICD9: 781.3] Diagnosis: DIZZINESS/VERTIGO[ICD9: 780.4] Belia REID [facility] CPT-4: 05755 08/15/2011 ([id number]) OFFICE/OUTPATIENT VISIT EST Diagnosis: THROMBOPHLEBITIS[ICD9: 451.9] Diagnosis: Subacromial bursitis[ICD9: 726.19] Diagnosis: ALLERGIC RHINITIS[ICD9: 477.9] Diagnosis: Lipoma[ICD9: 214.9] [facility] CPT-[facility]: 51949 08/09/2011 ([id number]) OFFICE/OUTPATIENT VISIT EST Diagnosis: THROMBOPHLEBITIS[ICD9: 451.9] Diagnosis: Arm pain[ICD9: 729.5] Diagnosis: Clostridium difficile colitis[ICD9: 008.45] Diagnosis: URINARY TRACT INFECTION[ICD9: 599.0] [facility]: 36078 07/03/2011 ([id number]) OFFICE/OUTPATIENT VISIT EST Diagnosis: ARTHRALGIA-MULTIPLE SITES[ICD9: 719.49] Diagnosis: Muscle cramp[ICD9: 729.82] Diagnosis: INSOMNIA NOS[ICD9: 780.52] Belia CORNELLLINE Yuridia [facility] CPT-4: 41435 06/04/2011 OFFICE/OUTPATIENT VISIT EST Diagnosis: Headache[ICD9: 784.0] Diagnosis: Allergic rhinitis[ICD9: 477.9] [facility] CPT-4: 64673 05/03/2011 OFFICE/OUTPATIENT VISIT EST Diagnosis: LUMB/LUMBOSAC DISC DEGEN[ICD9: 722.52] Diagnosis: MIGRAINE NOS/NOT INTRCBL[ICD9: 346.90] Diagnosis: CHRONIC PAIN SYNDROME[ICD9: 338.4] Diagnosis: RESTLESS LEGS SYNDROME[ICD9: 333.94] Belia Reid KRAIGROBERTO [facility] CPT-4: 35219 04/05/2011 OFFICE/OUTPATIENT VISIT EST Diagnosis: MIGRAINE NOS/NOT INTRCBL[ICD9: 346.90] Diagnosis: GERD[ICD9: 530.81] [facility] CPT-4: 95904 03/08/2011 OFFICE/OUTPATIENT VISIT EST Diagnosis: URINARY TRACT INFECTION[ICD9: 599.0] Diagnosis: Vertigo[ICD9: 780.4] Diagnosis: GERD[ICD9: 530.81] [facility] CPT-4: 77581 01/24/2011 OFFICE/OUTPATIENT VISIT EST Diagnosis: Hypotension[ICD9: 458.9] Diagnosis: Syncopal episodes[ICD9: 780.2] Diagnosis: MIGRAINE NOS/NOT INTRCBL[ICD9: 346.90] Diagnosis: MALAISE AND FATIGUE[ICD9: 780.79] Belia Reid KOFFI Paredes Yuridia [facility] CPT-4: 99494 01/02/2011 OFFICE/OUTPATIENT VISIT EST Diagnosis: Tinea cruris[ICD9: 110.3] Diagnosis: Intertrigo[ICD9: 695.89] Diagnosis: MIGRAINE NOS/NOT INTRCBL[ICD9: 346.90] Belia CASILLAS JOHN PAUL [facility] CPT-4: 13388 12/07/2010 OFFICE/OUTPATIENT VISIT EST Diagnosis: PALPITATIONS[ICD9: 785.1] Diagnosis: ANXIETY STATE NOS[ICD9: 300.00] [facility]: 83723 11/16/2010 OFFICE/OUTPATIENT VISIT EST Diagnosis: URINARY TRACT INFECTION[ICD9: 599.0] Diagnosis: MIGRAINE NOS/NOT INTRCBL[ICD9: 346.90] Iraida GaribayLUBNA [facility]: 21887 11/02/2010 OFFICE/OUTPATIENT VISIT EST Diagnosis: ALLERGIC RHINITIS[ICD9: 477.9] Diagnosis: ANXIETY STATE NOS[ICD9: 300.00] Belia [facility] CPT-4: 15234 10/18/2010 OFFICE/OUTPATIENT VISIT EST Belia [facility] CPT- 4: 63526 09/19/2010 OFFICE/OUTPATIENT VISIT EST Belia [facility] CPT- 4: 17129 09/06/2010 ([id number]) OFFICE/OUTPATIENT VISIT EST Belia CASILLAS [facility] CPT-4: 13386 08/10/2010 ([id number]) OFFICE/OUTPATIENT VISIT EST Belia CASILLAS [facility] CPT-4: 01003 05/11/2010 ([id number]) OFFICE/OUTPATIENT VISIT, EST Belia [facility] CPT-4: 35468 04/06/2010 ([id number]) OFFICE/OUTPATIENT VISIT, EST Belia [facility] CPT-4: 71811 02/09/2010 ([id number]) OFFICE/OUTPATIENT VISIT, EST Belializ [facility] CPT-4: 02996 01/05/2010 ([id number]) OFFICE/OUTPATIENT VISIT, EST Belia Zacharyisabellaotoniel [facility] CPT-4: 61840 12/07/2009 ([id number]) OFFICE/OUTPATIENT VISIT, EST Beliahanna [facility] CPT-4: 02026 11/08/2009 ([id number]) OFFICE/OUTPATIENT VISIT, EST Belia Smithotoniel ARACELIS [facility] CPT-4: 29149 10/24/2009 ([id number]) OFFICE/OUTPATIENT VISIT, EST Belia Zacharyisabellaotoniel [facility] CPT-4: 93909 07/25/2009 ([id number]) OFFICE/OUTPATIENT VISIT, EST Belia Oreisabellaotoniel ARACELIS [facility] CPT-4: 05186 05/26/2009 Plan of Care Planned Activity Notes Codes Status Date Appointment: Pattie Sotomayor [address] [id number] US RESCHEDULED 05/18/2019 Visit Diagnosis Plan: Chronic obstructive pulmonary di sease, unspecified Discussion: Recommend pulmonary rehab Patient states she never went to pulmonary rehab due to cost as well as transportation issues Finish trelagy Stop singulair Decrease hydroxyzine to 25mg po q HS Fwup [address] scan of Chest results discussed ICD-9 : 496 ICD-10 : J44.9 05/13/2019 Appointment: Belia Reid WPtel: [address] [place] [address] Hospital Follow Up 05/13/2019 Visit Diagnosis Plan: COUGH Discussion: Check CT scan of chest ICD-9 : 786.2 ICD-10 : R05 05/06/2019 Visit Diagnosis Plan: Stridor Discussion: Add Trelagy 1 p daily Add Singulair May need to see new business information analyst ICD-9 : 786.1 ICD-10 : R06.1 05/06/2019 Appointment: Belia Reid WPtel: [address] [place] [address] FOLLOW UP 05/06/2019 Patient Education: Singulair- [employer] C[employer]on [id number] [email or web address]/resources/[email or web address] Completed 05/06/2019 Appointment: Belia Reid WPtel: [address] [place], [place] [id number] US RESCHEDULED 04/30/2019 Visit Diagnosis Plan: Stridor [...] G25.5 04/29/2019 Appointment: Belia Reid WPtel: [phone] Hospital Follow Up 04/29/2019 Patient Education: Valium- [employer] Coupon [id number] [email or web address]/[email or web address]/resources/[email or web address] Completed 04/29/2019 Visit Diagnosis Plan: Flank pain [...] 783.1 ICD-10 : R63.5 04/16/2019 Appointment: Pattie Sotomayro [address] [place] [address] ACUTE ILLNESS 04/16/2019 Patient Education: cyclobenzaprine- [employer] Coupon [id number] [email or web address]/[email or web address]/resources/[email or web address] Completed 04/16/2019 Visit Diagnosis Plan: Migraine, unspecif ied, not intractable, without status migrainosus Discussion: Increase gabapentin to 600mg po BID ICD-9 : 346.90 ICD-10 : G43.909 04/08/2019 Visit Diagnosis Plan: Generalized pruritus Discussion: Hydroxyzine 25mg po TID for itching and anxiety ICD-9 : 698.9 ICD-10 : L29.9 04/08/2019 Appointment: Belia Reid WPtel: [id number] [id number] ACUTE ILLNESS 04/08/2019 Visit Diagnosis Plan: Cervicalgia [...] M75.52 01/22/2019 Appointment: Belia Reid WPtel: [address] [place] [address] Hospital Follow Up 01/22/2019 Visit Diagnosis Plan: Abdominal pain Discussion: urine culture sent to assess for any infection. rocephin given in office to cover for pyelonephritis. instructed to push fluids. call office with any new or worsening symptoms. ICD-9 : 789.00 ICD-10 : R10.9 01/07/2019 Appointment: Pattie Sotomayor [address] [place] [address] ACUTE ILLNESS 01/07/2019 Visit Diagnosis Plan: Low back pain Discussion: Stat C T of abdomen/pelvis now ICD-9 : 724.2 ICD-10 : M54.5 12/24/2018 Appointment: Belia Reid WPtel: [address] [place] [address] FOLLOW UP 12/24/2018 Visit Diagnosis Plan: Migraine, [...] : M79.7 11/20/2018 Appointment: Belia Reid WPtel: [address] [place] [address] ACUTE ILLNESS 11/20/2018 Patient Education: baclofen- [employer] Coupon [id number] [email or web address]://www.[email or web address]/samplemd/resources/getResource/61/[email or web address] Completed 11/20/2018 Visit Diagnosis Plan: Migraine, unspecif ied, intractable, without status migrainosus Discussion: toradol/phenergan given in o ffice (60 mg toradol, 12.5 mg phenergan). instructed to call if no improvement or worsening. instructed to follow up with textile knitter since headaches are occurring more frequently to make sure vision is not the cause. ICD-9 : 346.91 ICD-10 : G43.919 11/04/2018 Visit Diagnosis Plan: Acute sinusitis, unspecified Dis cussion: zithromax prescribed to cover for sinus infection due to length of symptoms and clinincal s/s. ICD-9 : 461.9 ICD-10 : J01.90 11/04/2018 Appointment: Pattie Sotomayor [address] [place] [address] ACUTE ILLNESS 11/04/2018 Appointment: Belia Reid WPtel: [address] [place], [place] [id number] US CANCELED 09/24/2018 Visit Diagnosis Plan: Type 2 diabetes me llitus with diabetic neuropathy, unspecified Discussion: Retry gabapentin 300mg po q HS ICD-9 : 250.60 ICD-10 : E11.40 09/18/2018 Visit Diagnosis Plan: Vitamin D deficiency, unspecifie d Discussion: Increase Vitamin D3 to 10,000 u daily ICD-9 : 268.9 ICD-10 : E55.9 09/18/2018 Visit Diagnosis Plan: Encounter for [facility] adult medical examination without abnormal findings [...] Appointment: Belia Reid WPtel: [facility] [place] [id number] Annual Well Visit 09/18/2018 Patient Education: gabapentin- OptimizeRX Coupon [phone] [email or web address]://www.[email or web address] [email or web address]/sampleLancope/resources/getResource/[email or web address] Completed 09/18/2018 Visit Diagnosis Plan: Pain in [...] ICD-10 : M54.89 09/08/2018 Appointment: Pattie Sotomayor [address] [place] [address] ACUTE ILLNESS 09/08/2018 Patient Education: prednisone- OptimizeRX Coupon [phone] https://www.[email or web address]/sampleLancope/resources/getResource/[email or web address] Completed 09/08/2018 Visit Diagnosis Plan: Pruritus, unspecified [...] E10.9 08/20/2018 Appointment: Belia Reid WPtel: [phone] ACUTE ILLNESS 08/20/2018 Patient Education: Lexapro- OptimizeRX Coupon [id number] Completed 08/20/2018 Patient Education: hydroxyzine HCl- OptimizeRX Coupon [id number] Completed 08/20/2018 Care Plan: MAMMOGRAM SCREENING LOINC : 2 6347-5 Pending 08/20/2018 Visit Diagnosis Plan: Paroxysmal atrial fibrillation D iscussion: Discuss eliquis need with cardiology at [facility] due to cost ICD-9 : 427.31 ICD-10 : I48.0 06/19/2018 Visit Diagnosis Plan: Hypotension due to drugs Discuss ion: Discussed decreasing cardizem dose due to low BP and edema but sees cardiology next week Follow Up: 1 months ICD-9 : 458.8 ICD-10 : I95.2 06/19/2018 Appointment: Belia Reid WPtel: [address] [place], [place] [phone] [place] FOLLOW UP 06/19/2018 Visit Diagnosis Plan: [...] : R61 06/09/2018 Appointment: Belia Reid WPtel: [address] [place], [place] [phone] [place] FOLLOW UP 06/09/2018 Care Plan: CHEST X-RAY 2VW FRONTAL&LATL LOINC : 11737-4 Pending 05/26/2018 Visit Diagnosis Plan: Supraventricular tachycardia [...] : R53.1 05/21/2018 Appointment: Belia Reid WPtel: [address] [place] [address] Hospital Follow Up 05/21/2018 Visit Diagnosis Plan: Cervical disc diso rder with radiculopathy, unspecified cervical region Discussion: Scheduled for surgery on 06/02 10/[address] Faulkner ICD-9 : 722.0 ICD-10 : M50.10 04/16/2018 Appointment: Belia Reid WPtel: [address] [place] [address] Follow Up 04/16/2018 Visit Diagnosis Plan: Fibromyalgia [...] ICD-10 : G43.919 04/01/2018 Appointment: Pattie Sotomayor [address] [place] [address] ACUTE ILLNESS 04/01/2018 Appointment: Belia Reid WPtel: [address] [place] [address] UA 03/17/2018 Visit Diagnosis Plan: Chronic obstructiv [...] : E11.65 03/06/2018 Appointment: Belia Reid WPtel: [phone] Hospital Follow Up 03/06/2018 Visit Diagnosis Plan: Cervicalgia Discussion: spoke wi dr. reid about patient. increased gabapentin to bid and started on celebrex bid. tramadrol rx written out to take prn. keep scheduled appt next week for myelogram. ICD-9 : 723.1 ICD-10 : M54.2 02/05/2018 Appointment: Pattie Sotomayor [address] [place] [address] ACUTE ILLNESS 02/05/2018 Care Plan: X-RAY EXAM NECK SPINE 4/5VWS cervical LOINC : 16334-2 Pending 01/21/2018 Visit Diagnosis Plan: Candidiasis of [...] ICD-10 : M54.2 01/20/2018 Appointment: Pattie Sotomayor [address] [place] [address] ACUTE ILLNESS 01/20/2018 Visit Diagnosis Plan: Pain in thoracic spine Discussio n: Proceed with CT scan of thoracic spine Will likely need PT ICD-9 : 724.1 ICD-10 : M54.6 12/25/2017 Appointment: Belia Reid WPtel: [address] FOLLOW UP 12/25/2017 Care Plan: CT THORAX W/O DYE LOINC : 473 66-0 Pending 12/25/2017 Visit Diagnosis Plan: Pain in thoracic spine Discussio n: Stretches Alternated heat/ice Topical aspercreme with lidocaine Flexeril Recheck 1 week Flu and Pneumovax given ICD-9 : 724.1 ICD-10 : M54.6 12/17/2017 Appointment: Belia Reid WPtel: [address] [place] [address] ACUTE ILLNESS 12/17/2017 Patient Education: Patient Medication [...] : J44.1 10/30/2017 Appointment: Belia Reid WPtel: [address] [place] [address] FOLLOW UP 10/30/2017 Patient Education: Patient Medication Summary Completed 10/30/2017 Visit Diagnosis Plan: Chronic obstructiv e pulmonary disease with acute lower respiratory infection Discussion: Continue SVNs with albuterol q4hrs Add Trelagy 1 inhalation daily Finish steroids Increase water intake Follow Up: 1 weeks ICD-9 : 496 ICD-10 : J44.0 10/23/2017 Appointment: Belia Reid WPtel: [address] [place] [address] WORK IN 10/23/2017 Patient Education: Patient Medication Summary Completed 10/23/2017 Appointment: Belia Reid WPtel: [address] [place] [address] NO SHOW 10/16/2017 Visit Diagnosis Plan: Confusional [...] : E11.65 09/17/2017 Appointment: Belia Reid WPtel: [address] [place] [address] Annual Well Visit 09/17/2017 Patient Education: Patient Medication Summary Completed 09/17/2017 Appointment: Belia Reid WPtel: [address] [place] [address] [place] INJECTION 08/26/2017 Patient Education: Patient Medication Summary Completed 08/26/2017 Appointment: Belia Reid WPtel: [address] [place] [address] [place] CANCELED 07/31/2017 Visit Diagnosis Plan: Encounter [...] ICD-10 : J20.9 07/19/2017 Appointment: Pattie Sotomayor [address] [place] [address] ACUTE ILLNESS 07/19/2017 Patient Education: Patient Medication Summary Completed 07/19/2017 Care Plan: MAMMOGRAM SCREENING LOINC : 2 6347-5 Pending 07/19/2017 Patient Education: Patient Medication Summary Completed 06/05/2017 Care Plan: LIPID PANEL LOINC : 29881-6 Pending 06/05/2017 Care Plan: A1C HPLC LOINC : 16515-5 Pending 06/05/2017 Visit Diagnosis Plan: Rash and [...] ICD-10 : R21 05/29/2017 Appointment: Pattie Sotomayor [address] [place] [address] FOLLOW UP 05/29/2017 Patient Education: Patient Medication Summary Completed 05/29/2017 Visit Diagnosis Plan: Tinea corporis Discussion: Diflu can and topical nystatin Follow Up: 2 weeks ICD-9 : 110.5 ICD-10 : B35.4 05/07/2017 Visit Diagnosis Plan: Diarrhea, unspecified Discussion : Diflucan Cholestyramine Recheck 2weeks ICD-9 : 787.91 ICD-10 : R19.7 05/07/2017 Appointment: Belia Reid WPtel: [address] [place] [address] FOLLOW UP 05/07/2017 Patient Education: Patient Medication Summary Completed 05/07/2017 Appointment: Belia Reid WPtel: [address] [place], [place] [phone] [place] RESCHEDULED 04/30/2017 Visit Diagnosis Plan: Chronic obstructiv e pulmonary disease with (acute) exacerbation Discussion: Finish prednisone Continue S VNS with albuterol ICD-9 : 491.21 ICD-10 : J44.1 03/18/2017 Visit Diagnosis Plan: Stridor Discussion: Increase Ati van 0.5mg po to TID routinely for next week then can go back to prn ICD-9 : 786.1 ICD-10 : R06.1 03/18/2017 Appointment: Belia Reid WPtel: [address] [place] [address] ER Follow UP 03/18/2017 Patient Education: Patient [...] E11.65 02/27/2017 Appointment: Belia Reid WPtel: [phone] [id number] [place] FOLLOW UP 02/27/2017 Patient Education: Patient [...] ICD-10 : E11.65 02/22/2017 Appointment: Pattie Sotomayor [address] [place] [address] ACUTE ILLNESS 02/22/2017 Patient Education: Patient Medication Summary Completed 02/22/2017 Patient Education: Trulicity - 18+ Comple mague 02/22/2017 Visit Diagnosis Plan: Urinary tract infection, site no t specified Discussion: Finish levaquin ICD-9 : 599.0 ICD-10 : N39.0 01/23/2017 [...] : J18.9 01/23/2017 Appointment: Belia Reid WPtel: [address] [place], [place] [phone] ER Follow UP 01/23/2017 Patient Education: Patient Medication Summary Completed 01/23/2017 Appointment: Pattie Sotomayor [address] [facility] CANCELED 01/17/2017 Appointment: Pattie Sotomayor [address] [place], [place] [phone] Annual Well Visit 01/14/2017 Visit Diagnosis Plan: Type 2 diabetes mellitus with hy perglycemia Discussion: Check CMP, HbA1C Flu shot and Prevnar 13 given Follow Up: 3 months ICD-9 : 250.02 ICD-10 : E11.65 12/20/2016 Visit Diagnosis Plan: Localized edema Discussion: Low Na diet Compression socks/Elevate feet ICD-9 : 782.3 ICD-10 : R60.0 12/20/2016 Appointment: Belia Reid WPtel: [address] [place] [address] FOLLOW UP 12/20/2016 Patient Education: Patient Medication Summary Completed 12/20/2016 Patient Education: Patient Medication Summary Completed 10/10/2016 Visit Plan: Xrays of cervical, thoracic and lumbar spine at [facility] for Mobic (stop NSAIDS except Tylenol) and Flexeril UA sent for C&S Using SVN Call in 2-3 days if pain not improved or any worsening 10/08/2016 Appointment: Celeste Ferreira WPtel: [address] [place] [address] ACUTE ILLNESS 10/08/2016 Patient Education: Patient Medication [...] 250.02 ICD-10 : E11.65 09/19/2016 Appointment: Belia Reidtel: [address] [place], [place] [phone] 09/18 confirmed`sl FOLLOW UP 09/19/2016 Patient Education: [...] : R10.84 08/20/2016 Appointment: Belia Reid WPtel: [address] [place], [place] [address] 08/16 confirmed~sl FOLLOW UP 08/20/2016 Patient Education: [...] : J44.9 06/19/2016 Appointment: Belia Reid WPtel: [facility] 06/18 confirmed ~sl Hospital Follow Up 06/19/2016 Patient Education: Patient Medication Summary Completed 06/19/2016 Visit Diagnosis Plan: Chronic obstructive pulmonary di sease, unspecified Discussion: Continue current inhalers ICD-9 : 496 ICD-10 : J44.9 06/04/2016 Visit Diagnosis Plan: Personal history of urinary (tra ct) infections Discussion: Sees urology June 22 at [facility] Restart prophylactic Macrobid at QOD ICD-9 : V13.02 ICD-10 : Z87.440 06/04/2016 Appointment: Belia Reidtel: [address] [place], [place] [phone] 06/01 confirmed~sl FOLLOW UP 06/04/2016 Patient Education: [...] : R06.1 05/02/2016 Appointment: Belia Reid WPtel: [address] [place], [place] [phone] 05/01 confirmed ~ Hospital Follow Up 05/02/2016 [...] : N39.0 04/03/2016 Appointment: Belia Reid WPtel: [facility] 04/02 confirmed~sl Hospital Follow Up 04/03/2016 Patient Education: Patient Medication Summary Completed 04/03/2016 Visit Plan: Lungs are clear Her symptoms and exam are all upper airway restriction/constriction Can try supportive care Rx as above Follow up PRN 02/29/2016 Appointment: Lidia Hwang [address] [place] [address] ACUTE ILLNESS 02/29/2016 Patient Education: Patient Medication Summary Completed 02/29/2016 Visit Plan: Toradol/Phenergan today for Migraine Change to Clindamycin to cover lactobacillus for UTI Cover with flagyl due to hx of C. Diff 02/02/2016 Appointment: Belia Reid WPtel: [address] [place] [address] 01/31 confirmed`sl ACUTE ILLNESS 02/02/2016 Patient Education: Patient Medication Summary Completed 02/02/2016 Visit Plan: Increase neurontin to 300mg q AM and 600mg q PM Discussed neurology re-evaluation Flu shot given Need to check on Pneumonia shot Rx written out for albuterol 01/05/2016 Appointment: Belia Reid WPtel: [address] [place] [address] 01/03 confirmed ~sl Annual Well Visit 01/05/2016 Patient Education: Patient Medication Summary Completed 01/05/2016 Visit Plan: Cipro Culture urine hydrate Flexeril refilled Alternate heat and ice for back Increase gabapentin to 300mg po BID Notify if worsens 12/05/2015 Appointment: Belia Reid WPtel: [address] [place] [address] 11/30 confirmed~sl ACUTE ILLNESS 12/05/2015 Patient Education: Patient Medication Summary Completed 12/05/2015 Patient Education: Patient Medication Summary Completed 10/27/2015 Care Plan: [place] : [address]-0 Pending 10/27/2015 Care Plan: A1C HPLC LOINC : 22352-7 Pending 10/27/2015 Visit Plan: Lungs are CTA today and is f eeling improved overall Finish meds as ordered Continue inhalers and neb treatments Discussed migraine treatment options She does not feel she needs anything additional added today Refill of Januvia sent since no samples are available today 10/26/2015 [facility]ment: [facility] [facility] Follow Up 10/26/2015 [facility] [facility]ED 10/26/2015 Patient Education: Patient Medication Summary Completed 10/26/2015 Patient Education: Natalia Shin 18+ - KENNETH - No [place] Completed 10/26/2015 Visit Plan: Office dip still abnormal Cu lture pending Switch to cipro - stop macrobid Push fluids - avoid caffeine Will call with culture results when available Follow up if worsening 10/05/2015 App[facility]ment[facility] Jaiden [facility] [facility] Follow UP 10/05/2015 Patient Education: Patient Medication Summary Completed 10/05/2015 Visit Plan: Proceed with PT for document ation of ROM and strength of all extremities Proceed with Power Mobility Device Trial of neurontin 300mg q HS--lyrica helped but patient unable to afford Recheck 1month 09/15/2015 Appointment: Belia Reid WPtel: [address] [place], [place] [phone] 09/13 confirmed~sl SPECIAL 09/15/2015 Patient Education: Patient Medication Summary Completed 09/15/2015 Visit Plan: Fille out Loan Discharge Pap erwork for total and permanent disability 08/25/2015 Patient Education: Patient Medication Summary Completed 08/25/2015 Visit Plan: Discussed with Dr Anushka Haywood at CT of head Will get last date of carotid doppler from her lean engineer and update if needed 08/24/2015 Appointment: [facility]iden [facility] 08/22 confirmed~sl ACUTE ILLNESS 08/24/2015 Patient Education: Patient Medication Summary Completed 08/24/2015 Patient Education: Patient Medication Summary Completed 08/24/2015 Care Plan: US EXAM OF HEAD AND NECK carotid Ultrasound LOIN C : 46845-3 Pending 08/24/2015 Visit Plan: Long discussion about diet A ccuchecks daily Check HbA1C, CMP Change requip to mirapex 07/05/2015 Appointment: Belia Reid WPtel: [phone] [facility] 07/03 confirmed ~sl FOLLOW UP 07/05/2015 Patient Education: Patient Medication Summary Completed 07/05/2015 Visit Plan: Add Breo ellipta 100 1 p BID Continue SVNs with duoneb QID 06/06/2015 Appointment: Belia Reid WPtel: [address] [place], [place] [phone] Patient is calling for a ride, then retu rning our call.-sp 06/01 called and patient stated she will know saturday if she can get a ride~sl 06/05 [facility] Follow Up 06/06/2015 Patient Education: Patient Medication [...] not improving 05/23/2015 Appointment: Huong Osborne WPtel: [address] [place], [place] [phone] ACUTE ILLNESS 05/23/2015 Appointment: Lidia Hwang [address] [place], [place] [phone] ER Follow UP 05/23/2015 Patient Education: Patient Medication Summary Completed 05/23/2015 Visit Plan: Check pancreatic enzymes and US of pancreas as patient can't understand why she has diabetes since has no family history Discussed weight, diet, exercise all play an important role in diabetes and are risk factors as well Continue Januvia and accuchecks daily 05/05/2015 Appointment: Belia Reid WPtel: [facility] FOLLOW UP 05/05/2015 Patient Education: Patient Medication Summary Completed 05/05/2015 Care Plan: US EXAM ABDOM COMPLETE LOINC : 51215-6 Ordered 05/05/2015 Visit Plan: Start Januvia 100mg daily [place] with diflucan and culture urine Accuchecks daily alternating times Recheck 6weeks 03/30/2015 Appointment: Belia Reid WPtel: [address] [place], [place] [address] 03/29 confirmed~lb FOLLOW UP 03/30/2015 Patient Education: Patient Medication Summary Completed 03/30/2015 Appointment: Belia Reid WPtel: [address] [place], [place] [phone] 03/01 needs reschedule due to payment and insurance ~sl FOLLOW UP 03/02/2015 Visit Plan: Patient was just in ER last night so has not filled scripts yet Start Carafate and Flagyl and Cipro Add Hyophen 1 po BID Recheck 1mo 02/03/2015 Appointment: Belia Reid WPtel: [address] [place], [place] [phone] 02/02lm ~sl...02/03/15 appt confirmed cn ACUTE I LLNESS 02/03/2015 Patient Education: Patient Medication Summary Completed 02/03/2015 Visit Plan: Warm soaks to vaginal area K elex and Diflucan and observe Zofran to use prn 12/29/2014 Appointment: Belia Reid WPtel: [address] [place], [place] [phone] 12/28 Confirmed ~sl ACUTE ILLNESS 12/29/2014 Patient Education: Patient Medication Summary Completed 12/29/2014 Appointment: Huong Osborne WPtel: [address] [place], [place] [phone] [place] FOLLOW UP 09/24/2014 Appointment: Belia Reid WPtel: [address] [place], [place] [phone] 09/15 confirmed -mf FOLLOW UP 09/16/2014 Visit Plan: Increase requip to 2mg po BI D Increase lyrica to 225mg total a day by adding an extra 75mg in AM Recheck in 2weeks Continue to patch left eye while sleeping 09/02/2014 Appointment: Belia Reid WPtel: [address] [place], [place] [phone] 09/01 appt confirmed cn Hospital Follow Up 09/02 Patient Education: Patient Medication Summary Completed 09/02/2014 Visit Plan: To Via Ayanna for observat ion to R/O CVA 08/25/2014 Appointment: Huong Osborne WPtel: [address] [place], [place] [phone] ACUTE ILLNESS 08/25/2014 Patient Education: Patient Medication Summary Completed 08/25/2014 Referral: Aaron Jonas WPtel: [facility] [address] [facility], [id number] [place] In [place] location Initiated 04/26/2014 Referral: Brian Srinivasan WPtel: [place] [facility] [id number] Referral Initiated 04/20/2014 Appointment: Belia Reid WPtel: [address] [place], [place] [phone] ER Follow UP 04/01/2014 Patient Education: Patient Medication Summary Completed 04/01/2014 Care Plan: MYELOGRAPHY NECK SPINE LOINC : 41056-4 Ordered 04/01/2014 Visit Plan: Continue Symbicort 160 at 2p BID Continue SVNs with duoneb at least QID Finish Levaquin Recheck 1mo on lyrica 03/16/2014 Appointment: Belia Reid WPtel: [address] [place], [place] [phone] 03/15 voicemail FOLLOW UP 03/16/2014 Patient Education: Patient Medication Summary Completed 03/16/2014 Visit Plan: Restart SVNs with duoneb QID Repeat prednisone Levaquin Continue symbicort Keep lyrica at same dose Recheck 1week 03/09/2014 Appointment: Belia Reid WPtel: [address] [place], [place] [phone] FOLLOW UP 03/09/2014 Patient Education: Patient Medication Summary Completed 03/09/2014 Appointment: Belia Reid WPtel: [address] [place], [place] [address] 03/03 showed up 15 minutes late for appt -- put her on Huong's side for 10:45am FORGIVEN PER DR FOLLOW UP 03/03/2014 Appointment: CalixtoTodHuong lagunas WPtel: [address] [place], [place] [phone] FOLLOW UP 03/03/2014 Patient Education: Patient Medication Summary Completed 03/03/2014 Appointment: CalixtoKpHuong WPtel: [address] [place], [place] [phone] ER Follow UP 03/01/2014 Patient Education: Patient Medication Summary Completed 03/01/2014 Visit Plan: Add carafate for this next m onth Increase lyrica to 150mg q HS 02/09/2014 Appointment: Belia Reid WPtel: [address] [place] [phone] [place] [address] Follow Up 02/09/2014 Patient Education: Patient Medication Summary Completed 02/09/2014 Visit Plan: Increase omeprazole back to 40mg po BID Use requip in AM and add lyrica 75mg q HS Recheck 1mo 12/23/2013 Appointment: Belia Reid WPtel: [address] [place], [place] [phone] FOLLOW UP 12/23/2013 Patient Education: Patient Medication Summary Completed 12/23/2013 Patient Education: Patient Medication Summary Completed 12/04/2013 Appointment: Belia Reid WPtel: [address] [place], [place] [phone] [facility] 10/30/2013 Patient Education: Patient Medication Summary Completed 10/30/2013 Appointment: Belia Reid WPtel: [address] [place], [place] [phone] [facility] 10/21/2013 Patient Education: Patient Medication Summary Completed 10/21/2013 Visit Plan: Cryotherapy as above TAC and hydroxyzine to use prn to itching spots and itching SKs Add Advair HFA 115/21 1 p BID 10/05/2013 Appointment: Belia Reid WPtel: [address] [place], [place] [phone] 10/01 pt called and confirmed ACUTE ILLNESS Patient Education: Patient Medication Summary Completed 10/05/2013 Appointment: Belia Reid WPtel: [address] [place] [address] [place] will pay copay and part of past balance FOLLOW U P 08/04/2013 Patient Education: Patient Medication Summary Completed 08/04/2013 Appointment: Belia Reid WPtel: [address] [place], [place] [phone] [place] INJECTION 07/13/2013 Patient Education: Patient Medication Summary Completed 07/13/2013 Appointment: Huong Osborne WPtel: [address] [place] [address] ACUTE ILLNESS 07/03/2013 Patient Education: Patient Medication Summary Completed 07/03/2013 Visit Plan: Cipro and culture urine 05/27/2013 Appointment: Huong Osborne WPtel: [address] [place] [address] 05/26 confirmed appt and notified that balance and music copyist y is due at appt time FOLLOW UP 05/27/2013 Patient Education: Patient Medication Summary Completed 05/27/2013 Appointment: Belia Reid WPtel: [address] [place], [place] [phone] [place] UA 05/25/2013 Patient Education: Patient Medication Summary Completed 05/25/2013 Appointment: Belia Reid WPtel: [address] [place], [place] [phone] [place] INJECTION 05/04/2013 Patient Education: Patient Medication Summary Completed 05/04/2013 Appointment: Belia Reid WPtel: [address] [place], [place] [phone] [place] INJECTION 04/17/2013 Patient Education: Patient Medication Summary Completed 04/17/2013 Appointment: Belia Reid WPtel: [address] [place], [place] [phone] [place] INJECTION 04/15/2013 Appointment: Belia Reid WPtel: [address] [place] [phone] 04/02 vm FOLLOW UP 04/06/2013 Patient Education: Patient Medication Summary Completed 04/06/2013 Visit Plan: Obtain lab results including UA from [facility] Lemus 11/10/2012 Appointment: Belia Reid WPtel: [address] [place], [place] [phone] ER Follow UP 11/10/2012 Patient Education: Patient Medication Summary Completed 11/10/2012 Appointment: Belia Reid WPtel: [address] [place], [place] [phone] 10/30/12 patient canceled appt due to fin ances. Offered to work something out, patient declined-LB FOLLOW UP 11/05/2012 Visit Plan: Continue Bystolic at current dose Pt has fwup with Neurology on September 16 09/02/2012 Appointment: Belia Reid WPtel: [address] [place], [place] [phone] FOLLOW UP 09/02/2012 Patient Education: Patient Medication Summary Completed 09/02/2012 Visit Plan: Continue bystolic at 5mg chris ly Sees Neurology tomorrow Use oxygen at bedtime 08/04/2012 Appointment: Belia Reid WPtel: [address] [place], [place] [phone] [place] FOLLOW UP 08/04/2012 Patient Education: Patient Medication Summary Completed 08/04/2012 Appointment: Belia Reid WPtel: [address] [place], [place] [phone] has Hospital fwup for 07/21/12. merged appointments FOLLOW UP 07/24/2012 Visit Plan: Start Bystolic 5mg daily for tachycardia Fwup with neurology for further workup Overnight O2 sat 07/21/2012 Appointment: Belia Reidtel: [address] [place] [address] Hospital Follow Up 07/21/2012 Patient Education: Patient Medication Summary Completed 07/21/2012 Visit Plan: SVN with Albuterol QID Add A velox 400mg daily Notify if worsens or persists 07/02/2012 Appointment: Belai Reid WPtel: [address] [place] [address] ACUTE ILLNESS 07/02/2012 Patient Education: Patient Medication Summary Completed 07/02/2012 Appointment: Belia Reidtel: [address] [place] [address] INJECTION 06/25/2012 Patient Education: Patient Medication Summary Completed 06/25/2012 Appointment: Belia Reidtel: [address] [place] [address] FOLLOW UP 06/24/2012 Patient Education: Patient Medication Summary Completed 06/24/2012 Appointment: Belia Reidtel: [address] [place] [address] [place] [facility] [place]/20/2012 Patient Education: Patient Medication Summary Completed 05/20/2012 Visit Plan: DC Neurontin--discussed that this may be causing some of symptoms Also discussed that stress is likely contributing factor Discussed that may be going through withdrawal from stopping pain meds cold turkey--pt states stopped meds 2wks ago do to not helping Increase Buspar to 10mg po TID 05/08/2012 Appointment: Belia Reidtel: [address] [place] [address] ACUTE ILLNESS 05/08/2012 Patient Education: Patient Medication Summary Completed 05/08/2012 Visit Plan: Continue current meds Contin ue lower dose on pain meds and Diazepam Still waiting on paperwork for botox for Migraines Will restart Neurontin at 600mg po q HS Pt going to stop Depakote due to can't afford 04/22/2012 Appointment: Belia Reid WPtel: [phone] [place], [place] [phone] 04/21 Hospital Follow Up 04/22/2012 Patient Education: Patient Medication Summary Completed 04/22/2012 Visit Plan: Injection to shoulder as abo ve Continue current meds Has appointment with neurology on HAs in 02/13/2012 Appointment: Belia Reid WPtel: [address] [place], [place] [phone] Pt does not have $10 copay at [facility] t time - will bring it in next week. Kianna iqbal'ed this. - [place] FOLLOW UP 02/13/2012 Patient Education: Patient Medication Summary Completed 02/13/2012 Visit Plan: Proceed with headache specia list Change nexium to Protonix Phenergan to use prn Sumatriptan to use prn Pt still on Inderal 01/28/2012 Appointment: Belia Reid WPtel: [address] [place], [place] [phone] ER Follow UP 01/28/2012 Patient Education: Patient [...] for sleep 12/26/2011 Appointment: Belia Reid WPtel: [address] [place], [place] [phone] 12/24- appt. confirmed FOLLOW UP 2 Patient Education: Patient Medication Summary Completed 12/26/2011 Appointment: Belia Reid WPtel: [address] [place], [place] [phone] [place] FOLLOW UP 11/14/2011 Patient Education: Patient Medication Summary Completed 11/14/2011 Appointment: Belia Reid WPtel: [address] [place] [address] FOLLOW UP 09/12/2011 Patient Education: Patient Medication Summary Completed 09/12/2011 Visit Plan: Supportive care Decrease Liseth catalino to 50mg q HS Decrease AM dose of Valium to 5mg q HS Use Endocet sparingly 08/15/2011 Appointment: Belia Reid WPtel: [address] [place] [address] ER Follow UP 08/15/2011 Patient Education: Patient Medication Summary Completed 08/15/2011 Appointment: Belia Reid WPtel: [address] [place] [address] Spoke directly to patient yesterday and confirmed the appoin tment. ACUTE ILLNESS 08/09/2011 Patient Education: Patient Medication Summary Completed 08/09/2011 Appointment: eBlia Reid WPtel: [address] [place] [address] Hospital Follow Up 07/03/2011 Patient Education: Patient Medication Summary Completed 07/03/2011 Appointment: Belia Reid WPtel: [address] [place] [address] FOLLOW UP 06/04/2011 Patient Education: Patient Medication Summary Completed 06/04/2011 Visit Plan: Pt. wants "allergy shot" but in fact wants steroid shot. Will take a break from [facility] and try Singulair for 2 weeks. 05/03/2011 Appointment: Iraida Jones WPtel: [address] [place] [address] ACUTE ILLNESS 05/03/2011 Patient Education: Patient Medication Summary Completed 05/03/2011 Visit Plan: Neurontin 400mg q HS for 1we ek then 800mg q HS Decrease requip to 1mg q HS for 2wks then stop Fwup 2mos 04/05/2011 Appointment: Belia Reid WPtel: [address] [place] [address] FOLLOW UP 04/05/2011 Patient Education: Patient Medication Summary Completed 04/05/2011 Visit Plan: Trial of neurontin in 2wks C ontinue current meds for stomach Pt has procedure with Dr. Ortiz next week for stone removal 03/08/2011 Appointment: Belia Reid WPtel: [address] [place] [address] Follow Up 03/08/2011 Patient Education: Patient Medication Summary Completed 03/08/2011 Appointment: Belia Reid WPtel: [address] [place] [address] FOLLOW UP 02/19/2011 Visit Plan: reports increased [...] with Flagyl 01/24/2011 Appointment: Iraida Jones WPtel: [address] [place] [address] ACUTE ILLNESS 01/24/2011 Patient Education: Patient Medication Summary Completed 01/24/2011 Appointment: Belia Reid WPtel: [address] [place] [address] FOLLOW UP 01/02/2011 Patient Education: Patient Medication Summary Completed 01/02/2011 Appointment: Belia Reid WPtel: [address] [place] [address] FOLLOW UP 12/12/2010 Appointment: Belia Reid WPtel: [address] [place] [address] ACUTE ILLNESS 12/07/2010 Patient Education: Patient Medication Summary Completed 12/07/2010 Visit Plan: Increase Buspar to 10mg po B ID 11/16/2010 Appointment: Belia Reid WPtel: [address] [place] [address] [place] FOLLOW UP 11/16/2010 Patient Education: Patient Medication Summary Completed 11/16/2010 Appointment: Iraida Jones WPtel: [address] [place] [address] ER Follow UP 11/02/2010 Patient Education: Patient Medication Summary Completed 11/02/2010 Visit Plan: Depo-Medrol/Kenalog given fo r allergies Add BuSpar for anxiety Oxycodone one p.o. q.i.d. for number 120 refilled 10/18/2010 Appointment: Belia Reid WPtel: [address] [place] [address] FOLLOW UP 10/18/2010 Patient Education: Patient Medication Summary Completed 10/18/2010 Visit Plan: Continue current meds Discus sed epidurals for back vs PT--will proceed with epidurals to thoracolumbar region to see if helps with pain 09/19/2010 Appointment: Belia Reid WPtel: [address] [place] [address] FOLLOW UP 09/19/2010 Patient Education: Patient Medication Summary Completed 09/19/2010 Visit Plan: DC MS contin Check CT scan t horacic spine Fwup pending above results 09/06/2010 Appointment: Belia Reid WPtel: [address] [place] [address] [place] FOLLOW UP 09/06/2010 Patient Education: Patient Medication Summary Completed 09/06/2010 Visit Plan: Continue current meds Restar t MS contin 15mg po BID and use oxycodone prn Use daily senokot-s 2 po BID 08/10/2010 Appointment: Belia Reid WPtel: [address] [place], [place] [phone] [place] FOLLOW UP 08/10/2010 Patient Education: Patient Medication Summary Completed 08/10/2010 Visit Plan: Depomedrol/Kenalog given Pt sees ENT later this month Cont current meds Mammo scheduled 05/11/2010 Appointment: Belia Reidtel: [address] [place] [address] FOLLOW UP 05/11/2010 Patient Education: Patient Medication Summary Completed 05/11/2010 Appointment: Belia Reidtel: [address] [place] [address] 05/04/2010 Patient Education: Patient Medication Summary Completed 05/04/2010 Visit Plan: Pt sent to lab for UA 04/28/2010 Appointment: Belia Reidtel: [address] [place] [address] 04/28/2010 Patient Education: Patient Medication Summary Completed 04/28/2010 Visit Plan: Check CT angiogram of chest Restart Advair Use proair prn Cont current meds Fwup with Card as schedulec 04/06/2010 Appointment: Belia Reidtel: [address] [place] [address] Follow Up 04/06/2010 Patient Education: Patient Medication Summary Completed 04/06/2010 Visit Plan: Paperwork filled out for [facility] Depomedrol/kenalog given Pt sees ENT in 2wks to assess nasal obstruction problems 02/09/2010 Appointment: Belia Reidtel: [address] [place] [address] ESTABLISHED PATIENT 02/09/2010 Patient Education: Patient Medication Summary Completed 02/09/2010 Visit Plan: Change Elavil to Trazadone 1 50mg q HS Diflucan and nystatin for tinea cruris 01/05/2010 Appointment: Belia Reidtel: [address] [place] [address] FOLLOW UP 01/05/2010 Patient Education: Patient Medication Summary Completed 01/05/2010 Appointment: Belia Reidtel: [address] [place] [address] FOLLOW UP 12/07/2009 Patient Education: Patient Medication Summary Completed 12/07/2009 Appointment: Belia Reid WPtel: [address] [place], [place] [id number] FOLLOW UP 11/22/2009 Visit Plan: Cont current meds and await MRI results from Dr. Meadows's office and his final recommendations Will need to follow-up at later date on deviated septum 11/08/2009 Appointment: Belia Reid WPtel: [address] [place] [address] FOLLOW UP 11/08/2009 Patient Education: Patient Medication Summary Completed 11/08/2009 Visit Plan: Cont PT/OT See Neurosurgery Cont Tortoise shell brace 10/24/2009 Appointment: Belia Reid WPtel: [address] [place] [address] FOLLOW UP 10/24/2009 Patient Education: Patient Medication Summary Completed 10/24/2009 Appointment: Belia Reid WPtel: [address] [place] [address] Follow Up 10/17/2009 Appointment: Belia Reid WPtel: [address] [place] [address] ACUTE ILLNESS 07/25/2009 Patient Education: Patient Medication Summary Completed 07/25/2009 Appointment: Belia Reid WPtel: [address] [place] [address] FOLLOW UP 05/26/2009 Patient Education: Patient Medication Summary Completed 05/26/2009 Referral: Chino Balderas WPtel: [phone] [facility] Referral Initiated Referral: Merry Vale WPtel: [facility] [id number] Vale will review referral and book appointment Completed Referral: Francisco Javier Yoderan WPtel: [address] [id number] Patient needs EGD insurance will not inc rease a medication unless this procedure results show a need Completed Referral: Paresh Francisco Javier Ronald WPtel: [address] [id number] [place] Referral Historical Reference Referral: Yoder Francisco Javier Cardenas WPtel: [address] [id number] [place] Referral Initiated Instructions Comment . Xrays [...] last date of carotid doppler from her lean engineer and update if needed . Long discussion [...] from "generic Zyrtec they are getting from [facility]" and try Singulair for 2 weeks. [...]
--- OUTSIDE RECORDS SUMMARY | 2019-06-23 17:58 | XMS REPORT | CCD ---
Author Author Diana Reid D.O. Organization [facility] Address [address] [place] [phone] Phone Care Team Providers Care Real Estate Clerk Name Role Phone Belia Reid D.O., PP Unavailable CCM Unavailable Summary Purpose Interface Exchange Insurance Providers Payer name Policy type / Coverage type Covered democrat ID Effective Begin Date Effective End Date [employer] MEDICARE Medicare Part B [id number] 2019 Unknown Family History Family History data not found Social History Social History Element Codes Description Effective Dates Tobacco history SNOMED CT: 803286528 Nonsmoker 09/13/2010 Allergies, Adverse Reactions, Alerts Substance Reaction Codes Entered Date Inactivated Date Status Eggs reaction [id number] 09/15/2015 No Inactive Date Active _ Unknown [...] Start Date Stop Date Status Fill Instructions hydroxyzine HCl 25 mg tablet RxNorm: 342198 1 Tablet(s) Oral QPM for itching/aniety 05/13/2019 07/28/2019 Active gabapentin 600 mg tablet RxNorm: 832138 1 Tablet(s) Oral QD 020 06/05/2019 Active Singulair 10 mg tablet RxNorm: 411299 1 Tablet(s) Oral QPM 05/06/19 20 05/12/2019 Inactive Valium 5 mg tablet RxNorm: 638566 1 Tablet(s) Oral QPM for stri joao/muscle spasm 04/29/2019 05/29/2019 Active baclofen 10 mg tablet RxNorm: 818329 1 Tablet(s) Oral QPM for s pasm/neck pain 04/24/2019 05/23/2019 Active baclofen 10 mg tablet RxNorm: 826433 1 Tablet(s) Oral QPM for s pasm/neck pain 04/24/2019 04/23/2019 Inactive Novolin N NPH U-100 Insulin isophane 100 unit/mL subcu taneous susp RxNorm: 134354 23 Unit(s) Subcutaneous two times a day 04/20/2019 No Stop Date A ctive cyclobenzaprine 5 mg tablet RxNorm: 838151 1 Tablet(s) Oral three times a day as needed 04/16/2019 04/23/2019 Inactive hydroxyzine HCl 25 mg tablet RxNorm: 929165 1 Tablet(s) Oral three times a day for itching/aniety 04/08/2019 05/12/2019 Inactive gabapentin 600 mg tablet RxNorm: 451016 1 Tablet(s) Oral two ti mes a day 04/08/2019 05/05/2019 Inactive gabapentin 600 mg tablet RxNorm: 418408 1 Tablet(s) Oral two ti mes a day 04/08/2019 04/07/2019 Inactive Novolin N NPH U-100 Insulin isophane 100 unit/mL subcu taneous susp RxNorm: 168696 10 Unit(s) Subcutaneous two times a day 03/03/2019 04/19/2019 I nactive gabapentin 300 mg capsule RxNorm: 782101 1 Capsule(s) O ral every night at bedtime for neuropathy 02/26/2019 04/07/2019 Inactive gabapentin 300 mg capsule RxNorm: 712834 1 Capsule(s) O ral every night at bedtime for neuropathy 02/20/2019 02/25/2019 Inactive pramipexole 1 mg tablet RxNorm: 830559 1 Tablet(s) Oral QPM FOR RESTLESS LEGS (REPLACES REQUIP) 02/12/2019 02/07/2020 Active buspirone 5 mg tablet RxNorm: 299288 TAKE 1 TABLET THREE TIMES MILDRED Y 02/12/2019 05/12/2019 Inactive Lexapro 10 mg tablet RxNorm: 192352 TAKE 1 TABLET EVERY DAY FOR MOO D 01/31/2019 No Stop Date Active Ativan 0.5 mg tablet RxNorm: 645955 TAKE 1 TABLET BY MO UT THREE TIMES DAILY NEEDED FOR ANXIETY 01/26/2019 04/28/2019 Inactive Ativan 0.5 mg tablet RxNorm: 553110 TAKE 1 TABLET BY MO UTH THREE TIMES DAILY NEEDED FOR ANXIETY 01/05/2019 01/05/2019 Inactive Levaquin 500 mg tablet RxNorm: 730710 1 Tablet(s) Oral QD 12/25/2018 12/24/2018 Inactive Levaquin 500 mg tablet RxNorm: 280455 1 Tablet(s) Oral QD 12/25/2018 01/04/2019 Inactive baclofen 10 mg tablet RxNorm: 412059 1 Tablet(s) Oral three maico es a day 11/20/2018 01/19/2019 Inactive Ativan 0.5 mg tablet RxNorm: 815971 TAKE 1 TABLET BY [facility] THREE TIMES DAILY NEEDED FOR ANXIETY 11/20/2018 01/04/2019 Inactive gabapentin 300 mg capsule RxNorm: 292561 1 Capsule(s) O ral every night at bedtime for neuropathy 11/20/2018 12/20/2018 Inactive Lexapro 10 mg tablet RxNorm: 099141 1 Tablet(s) PO QD for mood 07/201801/30/2019 Inactive Zithromax Z-Lj 250 mg tablet RxNorm: 878083 Tablet(s) PO take as directed 11/04/2018 11/19/2018 Inactive Insulin Syringe 1 mL 29 gauge x 1/2" RxNorm: 2 s yringes daily with insulin Dx: E11.65 10/08/2018 No Stop Date Active gabapentin 300 mg capsule RxNorm: 349051 1 Capsule(s) PO QHS fo r neuropathy 09/18/2018 10/17/2018 Inactive cyclobenzaprine 5 mg tablet RxNorm: 569786 1 Tablet(s) PO TID a s needed 09/09/2018 09/08/2018 Inactive cyclobenzaprine 5 mg tablet RxNorm: 464266 1 Tablet(s) PO TID a s needed 09/09/2018 10/08/2018 Inactive prednisone 20 mg tablet RxNorm: 160425 1 Tablet(s) PO QD 09/08/2018 0 09/12/2018 Inactive Lantus Solostar U-100 Insulin 100 unit/mL (3 mL) subcu taneous pen RxNorm: 163384 55 Unit(s) SQ QAM 08/28/2018 11/03/2018 Inactive hydroxyzine HCl 25 mg tablet RxNorm: 470974 1 Tablet(s) PO QHS for itching 08/20/2018 05/12/2019 Inactive Lexapro 10 mg tablet RxNorm: 649152 1 Tablet(s) PO QD for mood 08/0210/18/2018 Inactive sumatriptan 100 mg tablet RxNorm: 956278 1 Tablet(s) PO at headache onset. May repeat 1 in two hours if headache remains. Max of 2 per 24 hours 04/02/2018 05/20/2018 Inactive Diflucan 150 mg tablet RxNorm: 524877 1 Tablet(s) PO QD 03/18/2018 Inactive Diflucan 150 mg tablet RxNorm: 550123 1 Tablet(s) PO QD 03/18/2018 Inactive Flagyl 500 mg tablet RxNorm: 957411 1 Tablet(s) PO TID 03/17/2018 Inactive Levaquin 500 mg tablet RxNorm: 140253 1 Tablet(s) PO QD 03/17/2018 Inactive Levaquin 500 mg tablet RxNorm: 458692 1 Tablet(s) PO QD 03/17/2018 Inactive Flagyl 500 mg tablet RxNorm: 010329 1 Tablet(s) PO TID 03/17/2018 Inactive ketoconazole 200 mg tablet RxNorm: 556519 1 Tablet(s) PO QD 019 03/19/2018 Inactive Celebrex 200 mg capsule RxNorm: 781464 1 Capsule(s) PO BID 02/06/20 18 05/20/2018 Inactive tramadol 50 mg tablet RxNorm: 599748 1 Tablet(s) PO TID as needed 1 04/08/2017 05/20/2018 Inactive gabapentin 300 mg capsule RxNorm: 775852 1 Capsule(s) PO BID 201705/20/2018 Inactive Diflucan 150 mg tablet RxNorm: 845712 1 Tablet(s) PO QD 01/20/2018 Inactive pramipexole 1 mg tablet RxNorm: 847795 1 Tablet(s) PO Q PM FOR RESTLESS LEGS (REPLACES REQUIP) 01/08/2018 02/11/2019 Inactive cyclobenzaprine 10 mg tablet RxNorm: 362756 1 Tablet(s) PO TID as needed for muscle spasm 12/17/2017 05/20/2018 Inactive pramipexole 1 mg tablet RxNorm: 990325 TAKE 1 TABLET BY MOUTH ONCE DAILY IN THE EVENING FOR RESTLESS LEGS (REPLACES REQUIP) 12/04/2017 01/05/2018 Inac tive Amaryl 4 mg tablet RxNorm: 350603 1 Tablet(s) PO BID replaces 2mg 0 11/05/2017 12/16/2017 Inactive Singulair 10 mg tablet RxNorm: 704541 1 Tablet(s) PO QHS for al lergies/lungs 10/30/2017 12/16/2017 Inactive Diflucan 100 mg tablet RxNorm: 558163 1 Tablet(s) PO QD 10/23/2017 Inactive Ativan 0.5 mg tablet RxNorm: 209501 TAKE 1 TABLET BY MOUTH THRE E TIMES DAILY 08/30/2017 11/20/2018 Inactive buspirone 5 mg tablet RxNorm: 591938 1 Tablet(s) PO TID 07/11/2017 Inactive propranolol 60 mg tablet RxNorm: 129467 1 Tablet(s) PO BID repl aces 40mg dose 06/26/2017 12/16/2017 Inactive Amaryl 4 mg tablet RxNorm: 310434 1 Tablet(s) PO BID replaces 2mg 0 06/12/2017 11/05/2017 Inactive omeprazole 40 mg capsule,delayed release RxNorm: 787905 1 Capsule(s) PO BID TAKE ONE CAPSULE BY MOUTH TWICE DAILY 05/30/2017 11/25/2017 Inactive pramipexole 1 mg tablet RxNorm: 347275 1 Tablet(s) PO Q PM for restless legs--replaces requip 05/30/2017 11/25/2017 Inactive amitriptyline 50 mg tablet RxNorm: 356979 1 Tablet(s) PO QHS 201709/16/2017 Inactive Diflucan 100 mg tablet RxNorm: 113172 1 Tablet(s) PO BID 05/07/2017 0 05/20/2017 Inactive nystatin (bulk) 100 million unit powder RxNorm: Application TO P BID 05/07/2017 05/20/2018 Inactive cholestyramine (with sugar) 4 gram oral powder RxNorm: 351825 1 Unit Dose PO QD 05/07/2017 01/20/2018 Inactive Ativan 0.5 mg tablet RxNorm: 985977 TAKE ONE TABLET BY MOUTH TH REE TIMES DAILY 05/01/2017 09/02/2017 Inactive Trulicity 1.5 mg/0.5 mL subcutaneous pen injector RxNorm: 15 25610 1 Unit Dose SQ WEEKLY 02/22/2017 03/23/2017 Inactive doxycycline hyclate 100 mg capsule RxNorm: 4083127 1 Capsule(s) PO BID 01/23/2017 02/05/2017 Inactive Amaryl 4 mg tablet RxNorm: 831111 1 Tablet(s) PO BID replaces 2mg 1 03/25/2016 05/22/2017 Inactive magnesium oxide 400 mg capsule RxNorm: 972740 1 Capsule(s) PO QD 07/18/2017 Inactive Ativan 0.5 mg tablet RxNorm: 476341 TAKE ONE TABLET BY MOUTH TH REE TIMES DAILY 01/17/2017 05/01/2017 Inactive Amaryl 2 mg tablet RxNorm: 321698 1 Tablet(s) PO BID 12/27/201601/22 Inactive Amaryl 2 mg tablet RxNorm: 096451 1 Tablet(s) PO BID 12/26/201612/26 Inactive Ativan 0.5 mg tablet RxNorm: 867471 TAKE ONE TABLET BY MOUTH TH REE TIMES DAILY 12/05/2016 01/18/2017 Inactive pramipexole 1 mg tablet RxNorm: 913093 1 Tablet(s) PO Q PM for restless legs--replaces requip 11/26/2016 05/30/2017 Inactive Mobic 15 mg tablet RxNorm: 731918 1 Tablet(s) PO QD 10/08/20162016 Inactive cyclobenzaprine 5 mg tablet RxNorm: 193874 1/2- 1 Tablet(s) PO TID 10/08/2016 10/17/2016 Inactive Ativan 0.5 mg tablet RxNorm: 089311 1 Tablet(s) PO TID 09/20/201607/2016 Inactive amitriptyline 50 mg tablet RxNorm: 741327 1 Tablet(s) PO QHS 201605/30/2017 Inactive propranolol 60 mg tablet RxNorm: 368954 1 Tablet(s) PO BID repl aces 40mg dose 09/19/2016 06/26/2017 Inactive Ativan 0.5 mg tablet RxNorm: 002875 1 Tablet(s) PO TID 08/20/2016 Inactive omeprazole 40 mg capsule,delayed release RxNorm: 515854 1 Capsule(s) PO BID TAKE ONE CAPSULE BY MOUTH TWICE DAILY 08/20/2016 05/30/2017 Inactive amitriptyline 50 mg tablet RxNorm: 858811 1 Tablet(s) PO QHS 201609/18/2016 Inactive pramipexole 1 mg tablet RxNorm: 734949 1 Tablet(s) PO Q PM for restless legs--replaces requip 07/23/2016 11/25/2016 Inactive Amaryl 2 mg tablet RxNorm: 991980 1 Tablet(s) PO BID 07/23/201612/27 Inactive propranolol 40 mg tablet RxNorm: 465227 1 Tablet(s) PO BID 07/13/19 17 09/18/2016 Inactive Ativan 0.5 mg tablet RxNorm: 700661 1 Tablet(s) PO QID 06/19/2016 Inactive Amaryl 2 mg tablet RxNorm: 935819 1 Tablet(s) PO BID 06/19/201607/22 Inactive Ativan 0.5 mg tablet RxNorm: 176988 1 Tablet(s) PO QID 06/19/2016 Inactive buspirone 5 mg tablet RxNorm: 644302 1 Tablet(s) PO TID 06/19/2016 Inactive Ativan 0.5 mg tablet RxNorm: 348119 1 Tablet(s) PO BID 05/24/2016 Inactive buspirone 5 mg tablet RxNorm: 463848 1 Tablet(s) PO TID 05/23/2016 Inactive Macrobid 100 mg capsule RxNorm: 177344 1 Capsule(s) PO QOD 05/03/1910/07/2016 Inactive pramipexole 1 mg tablet RxNorm: 746975 Tablet(s) 1 Tabl et(s) PO QPM for restless legs--replaces requip 04/26/2016 06/24/2016 Inactive propranolol 40 mg tablet RxNorm: 509287 TAKE ONE TABLET BY MOUT H TWICE DAILY 04/26/2016 06/24/2016 Inactive Detrol LA 4 mg capsule,extended release RxNorm: 704714 1 Capsul e(s) PO QHS 04/03/2016 05/02/2016 Inactive prednisone 20 mg tablet RxNorm: 377663 1 Tablet(s) PO QD 02/29/2016 0 03/04/2016 Inactive Actos 30 mg tablet RxNorm: 851803 TAKE ONE TABLET BY MOUTH ONCE DAILY 02/27/2016 12/19/2016 Inactive clindamycin 300 mg capsule RxNorm: 214956 1 Capsule(s) PO TID 02/0102/08/2016 Inactive Flagyl 500 mg tablet RxNorm: 048534 1 Tablet(s) PO BID 02/02/201609/2015 Inactive omeprazole 40 mg capsule,delayed release RxNorm: 043433 TAKE ONE CAPSULE BY MOUTH TWICE DAILY 01/15/2016 07/12/2016 Inactive gabapentin 300 mg capsule RxNorm: 572092 1 Capsule(s) PO QAM an d 2 po q HS 01/05/2016 06/18/2016 Inactive gabapentin 300 mg capsule RxNorm: 155464 1 Capsule(s) P O BID 1 Capsule(s) PO QHS 12/05/2015 01/04/2016 Inactive cyclobenzaprine 10 mg tablet RxNorm: 978178 1 Tablet(s) PO TID for spasm as needed for muscle spasm 12/05/2015 06/18/2016 Inactive ciprofloxacin 250 mg tablet RxNorm: 882419 1 Tablet(s) PO BID 12/0412/14/2015 Inactive pramipexole 1 mg tablet RxNorm: 524267 Tablet(s) 1 Tabl et(s) PO QPM for restless legs--replaces requip 11/07/2015 11/26/2016 Inactive Januvia 100 mg tablet RxNorm: 278052 1 Tablet(s) PO QD 10/26/201504/2015 Inactive propranolol 40 mg tablet RxNorm: 797874 TAKE ONE TABLET BY MOUT H TWICE DAILY 10/25/2015 04/21/2016 Inactive gabapentin 300 mg capsule RxNorm: 995897 1 Capsule(s) PO QHS 201512/04/2015 Inactive Cipro 500 mg tablet RxNorm: 484173 1 Tablet(s) PO BID 10/05/201511/2015 Inactive pramipexole 1 mg tablet RxNorm: 855826 Tablet(s) 1 Tabl et(s) PO QPM for restless legs--replaces requip 10/04/2015 11/02/2015 Inactive propranolol 40 mg tablet RxNorm: 300709 TAKE ONE TABLET BY MOUT H TWICE DAILY 09/26/2015 10/24/2015 Inactive Amaryl 2 mg tablet RxNorm: 692903 1 Tablet(s) PO QD 09/15/20152016 Inactive gabapentin 300 mg capsule RxNorm: 531373 1 Capsule(s) PO QHS 201510/14/2015 Inactive buspirone 5 mg tablet RxNorm: 314799 1 Tablet(s) PO TID 09/15/2015 Inactive pramipexole 1 mg tablet RxNorm: 999690 Tablet(s) 1 Tabl et(s) PO QPM for restless legs--replaces requip 09/08/2015 10/03/2015 Inactive pramipexole 1 mg tablet RxNorm: 434178 1 Tablet(s) PO Q PM for restless legs--replaces requip 08/08/2015 09/08/2015 Inactive Amaryl 2 mg tablet RxNorm: 372622 1 Tablet(s) PO QD 07/07/20152015 Inactive pramipexole 1 mg tablet RxNorm: 671881 1 Tablet(s) PO Q PM for restless legs--replaces requip 07/05/2015 08/03/2015 Inactive ropinirole 2 mg tablet RxNorm: 137726 TAKE ONE TABLET BY MOUTH TWICE DAILY 05/09/2015 09/14/2015 Inactive Diflucan 100 mg tablet RxNorm: 740277 1 Tablet(s) PO QD 03/30/2015 Inactive propranolol 40 mg tablet RxNorm: 387065 1 Tablet(s) PO BID 02/24/2008/21/2015 Inactive [SAVINGS FOR UNINSURED PATIE NTS -- BIN:991081, PCN: ASPROD1, Group: AME08, ID# [id number], Process claim through [employer], for questions: . THIS IS NOT INSURANCE.] Flagyl 500 mg tablet RxNorm: 581005 1 Tablet(s) PO BID 02/03/201502/2015 Inactive Cipro 500 mg tablet RxNorm: 748141 1 Tablet(s) PO BID 02/03/201502/01 Inactive Carafate 1 gram tablet RxNorm: 304423 1 Tablet(s) PO QID make i nto slurry 02/03/2015 09/14/2015 Inactive ondansetron HCl 4 mg tablet RxNorm: 515590 1 Tablet(s) PO Q4H as needed for nausea 12/29/2014 01/04/2016 Inactive Diflucan 100 mg tablet RxNorm: 220222 1 Tablet(s) PO QD 12/29/2014 Inactive Keflex 500 mg capsule RxNorm: 610355 1 Capsule(s) PO TID 12/29/2014 1 03/09/2014 Inactive omeprazole 40 mg capsule,delayed release RxNorm: 330701 1 Capsu le(s) PO BID 12/27/2014 12/21/2015 Inactive [SAVINGS FOR UNINSUR ED PATIENTS -- BIN:191054, PCN: ASPROD1, Group: AME08, ID# [id number], Process claim through [employer], for questions: . THIS IS NOT INSURANCE.] ropinirole 2 mg tablet RxNorm: 644943 1 Tablet(s) PO BID 09/29/2014 0 03/27/2015 Inactive [SAVINGS FOR UNINSURED PATIENTS -- BIN:0 23735, PCN: ASPROD1, Group: AME08, ID# [id number], Process claim through [employer], for questions: . THIS IS NOT INSURANCE.] buspirone 5 mg tablet RxNorm: 135312 1 Tablet(s) PO TID 09/17/2014 Inactive ropinirole 2 mg tablet RxNorm: 383928 1 Tablet(s) PO BID 09/02/2014 0 09/28/2014 Inactive [SAVINGS FOR UNINSURED PATIENTS -- BIN:0 24408, PCN: ASPROD1, Group: AME08, ID# [id number], Process claim through [employer], for questions: . THIS IS NOT INSURANCE.] Zyrtec 10 mg tablet RxNorm: 8491618 1 Tablet(s) PO QD 09/02/201412/02 Inactive propranolol 40 mg tablet RxNorm: 179465 1 Tablet(s) PO BID 07/21/19 15 02/23/2015 Inactive [SAVINGS FOR UNINSURED PATIE NTS -- BIN:906044, PCN: ASPROD1, Group: AME08, ID# [id number], Process claim through [employer], for questions: . THIS IS NOT INSURANCE.] ropinirole 2 mg tablet RxNorm: 011533 1 Tablet(s) PO QHS 05/14/2014 0 09/01/2014 Inactive [SAVINGS FOR UNINSURED PATIENTS -- BIN:0 34444, PCN: ASPROD1, Group: AME08, ID# [id number], Process claim through [employer], for questions: . THIS IS NOT INSURANCE.] cyclobenzaprine 10 mg tablet RxNorm: 756681 1 Tablet(s) PO QHS for spasm 04/06/2014 09/01/2014 Inactive ipratropium-albuterol 0.5 mg-3 mg(2.5 mg base)/3 mL ne bulization soln RxNorm: 9482539 1 Unit Dose INH Q4H 03/16/2014 No Stop Date Active [SAVINGS FOR UNINSURED PATIENTS -- BIN:675549, PCN: ASPROD1, Group: AME08, ID# [id number], Process claim through [employer], for questions: . THIS IS NOT INSURANCE.] prednisone 20 mg tablet RxNorm: 239513 1 Tablet(s) PO BID 03/09/2014 03/15/2014 Inactive [SAVINGS FOR UNINSURED PATIENTS -- BIN:0 83687, PCN: ASPROD1, Group: AME08, ID# [id number], Process claim through [employer], for questions: . THIS IS NOT INSURANCE.] ipratropium-albuterol 0.5 mg-3 mg(2.5 mg base)/3 mL ne bulization soln RxNorm: 5841285 1 Unit Dose INH Q4H 03/09/2014 03/15/2014 Inactive [SAVINGS FOR UNINSURED PATIENTS -- BIN:553500, PCN: ASPROD1, Group: AME08, ID# [id number], Process claim through [employer], for questions: . THIS IS NOT INSURANCE.] Levaquin 500 mg tablet RxNorm: 185059 1 Tablet(s) PO QD 03/09/2014 Inactive [SAVINGS FOR UNINSURED PATIENTS -- BIN:0 38888, PCN: ASPROD1, Group: AME08, ID# [id number], Process claim through [employer], for questions: . THIS IS NOT INSURANCE.] Carafate 1 gram tablet RxNorm: 787814 1 Tablet(s) PO AC & HS ma ke into slurry 02/09/2014 09/01/2014 Inactive [SAVINGS FOR UNINSUR ED PATIENTS -- BIN:904398, PCN: ASPROD1, Group: AME08, ID# [id number], Process claim through [employer], for questions: . THIS IS NOT INSURANCE.] Fioricet 50 mg-300 mg-40 mg capsule RxNorm: 9477859 1-2 Capsule(s) PO Q4H as needed for headache --max of 6 a day 02/09/2014 09/01/2014 Inactive [SAVINGS FOR UNINSURED PATIENTS -- BIN:301992, PCN: ASPROD1, Group: AME08, ID# [id number], Process claim through [employer], for questions: . THIS IS NOT INSURANCE.] propranolol 40 mg tablet RxNorm: 763925 1 Tablet(s) PO BID 12/08/19 14 06/04/2014 Inactive [SAVINGS FOR UNINSURED PATIE NTS -- BIN:478439, PCN: ASPROD1, Group: AME08, ID# [id number], Process claim through [employer], for questions: . THIS IS NOT INSURANCE.] buspirone 5 mg tablet RxNorm: 821237 1 Tablet(s) PO TID 12/02/2013 Inactive omeprazole 40 mg capsule,delayed release RxNorm: 183652 1 Capsu le(s) PO BID 11/25/2013 11/19/2014 Inactive [SAVINGS FOR UNINSUR ED PATIENTS -- BIN:993815, PCN: ASPROD1, Group: AME08, ID# [id number], Process claim through [employer], for questions: . THIS IS NOT INSURANCE.] ropinirole 2 mg tablet RxNorm: 552118 1 Tablet(s) PO QHS 11/10/2013 0 05/08/2014 Inactive [SAVINGS FOR UNINSURED PATIENTS -- BIN:0 01548, PCN: ASPROD1, Group: AME08, ID# [id number], Process claim through [employer], for questions: . THIS IS NOT INSURANCE.] Cipro 500 mg tablet RxNorm: 398644 1 Tablet(s) PO BID 10/21/201312/03 Inactive [SAVINGS FOR UNINSURED PATIENTS -- BIN:0 08893, PCN: ASPROD1, Group: AME08, ID# [id number], Process claim through [employer], for questions: . THIS IS NOT INSURANCE.] hydroxyzine HCl 25 mg tablet RxNorm: 487884 1 Tablet(s) PO Q4-6 H as needed 10/05/2013 01/04/2016 Inactive [SAVINGS FOR UNINSUR ED PATIENTS -- BIN:045644, PCN: ASPROD1, Group: AME08, ID# [id number], Process claim through [employer], for questions: . THIS IS NOT INSURANCE.] triamcinolone acetonide 0.1 % topical cream RxNorm: 2965478 Appl ication TOP BID 10/05/2013 09/01/2014 Inactive [SAVINGS FOR UNINSUR ED PATIENTS -- BIN:677029, PCN: ASPROD1, Group: AME08, ID# [id number], Process claim through [employer], for questions: . THIS IS NOT INSURANCE.] albuterol sulfate HFA 90 mcg/actuation aerosol inhaler RxNor m: 8340894 2 Puff(s) INH Q4H as needed for cough 10/01/2013 12/22/2013 Inactive [MAKSIM INGS FOR UNINSURED PATIENTS -- BIN:373622, PCN: ASPROD1, Group: AME08, ID# [id number], Process claim through [employer], for questions: . THIS IS NOT INSURANCE.] propranolol 40 mg tablet RxNorm: 633049 1 Tablet(s) PO BID 09/02/19 14 11/29/2013 Inactive [SAVINGS FOR UNINSURED PATIE NTS -- BIN:153626, PCN: ASPROD1, Group: AME08, ID# [id number], Process claim through [employer], for questions: . THIS IS NOT INSURANCE.] propranolol 40 mg tablet RxNorm: 129923 1 Tablet(s) PO BID 08/05/19 14 08/31/2013 Inactive [SAVINGS FOR UNINSURED PATIE NTS -- BIN:034889, PCN: ASPROD1, Group: AME08, ID# [id number], Process claim through [employer], for questions: . THIS IS NOT INSURANCE.] Toprol XL 50 mg tablet,extended release RxNorm: 127661 1 Tablet (s) PO QHS 07/23/2013 08/03/2013 Inactive Macrobid 100 mg capsule RxNorm: 707392 1 Capsule(s) PO BID 07/04/19 14 07/09/2013 Inactive Toprol XL 50 mg tablet,extended release RxNorm: 587100 1 Tablet (s) PO QHS 05/28/2013 06/26/2013 Inactive ciprofloxacin 500 mg tablet RxNorm: 368789 1 Tablet(s) PO BID 05/2706/02/2013 Inactive Bystolic 5 mg tablet RxNorm: 211999 1 Tablet(s) PO QD 05/27/201305/03 Inactive ropinirole 2 mg tablet RxNorm: 679994 1 Tablet(s) PO QHS 04/22/2013 0 11/09/2013 Inactive Cipro 250 mg tablet RxNorm: 069659 1 Tablet(s) PO BID 04/06/201311/2013 Inactive ropinirole 2 mg tablet RxNorm: 588795 1 Tablet(s) PO QHS 02/17/2013 0 04/21/2013 Inactive Amaryl 2 mg tablet RxNorm: 768161 1 Tablet(s) PO QAM 11/11/201211/10 Inactive Amaryl 2 mg tablet RxNorm: 476590 1 Tablet(s) PO QAM 11/11/201204/05 Inactive omeprazole 40 mg capsule,delayed release RxNorm: 791950 1 Capsu le(s) PO BID 08/14/2012 08/08/2013 Inactive Bystolic 5 mg tablet RxNorm: 870445 1 Tablet(s) PO QD 08/14/201205/03 Inactive propranolol 60 mg tablet RxNorm: 907546 Tablet(s) PO TAKE 1 TAB LET TWICE DAILY 08/01/2012 09/01/2012 Inactive Bystolic 5 mg tablet RxNorm: 129419 1 Tablet(s) PO QD 07/21/201207/02 Inactive Bystolic 5 mg tablet RxNorm: 642454 1 Tablet(s) PO QD 07/21/201207/03 Inactive Prilosec 40 mg capsule,delayed release RxNorm: 338415 1 Capsule (s) PO BID 06/24/2012 07/21/2012 Inactive buspirone 10 mg tablet RxNorm: 078576 1 Tablet(s) PO TID 05/08/2012 0 05/23/2016 Inactive Valium 10 mg tablet RxNorm: 408705 1 Tablet(s) PO BID 04/02/201207/03 Inactive Endocet 10 mg-325 mg tablet RxNorm: 3666177 1 Tablet(s) PO QID 03/0607/21/2012 Inactive as needed for severe pain Valium 10 mg tablet RxNorm: 389609 1 Tablet(s) PO BID 02/27/2012 No S top Date Active Endocet 10 mg-325 mg tablet RxNorm: 4216381 1 Tablet(s) PO QID 02/0203/27/2012 Inactive as needed for severe pain Endocet 10 mg-325 mg tablet RxNorm: 5520147 1 Tablet(s) PO QID 01/0302/26/2012 Inactive as needed for severe pain Valium 10 mg tablet RxNorm: 457217 1 Tablet(s) PO BID 01/29/2012 No S top Date Active Protonix 40 mg tablet,delayed release RxNorm: 172580 1 Tablet(s ) PO QD 01/28/2012 07/21/2012 Inactive metformin ER 500 mg tablet,extended release 24 hr RxNorm: 86 0977 1 Tablet(s) PO QD 12/26/2011 07/20/2012 Inactive Trazadone 150 mg Tablet RxNorm: 1 Tablet(s) PO QHS prn sleep 1 04/23/2012 Inactive Endocet 10 mg-325 mg tablet RxNorm: 3406336 1 Tablet(s) PO QID 12/0301/24/2012 Inactive as needed for severe pain Nexium 40 mg capsule,delayed release RxNorm: 498583 1 Capsule(s ) PO QD 12/26/2011 01/27/2012 Inactive Symbicort 160 mcg-4.5 mcg/actuation HFA Aerosol Inhaler RxNo rm: 6001955 2 Puff(s) INH BID 12/04/2011 07/21/2012 Inactive Endocet 10 mg-325 mg tablet RxNorm: 7999587 1 Tablet(s) PO QID 11/0312/25/2011 Inactive as needed for severe pain metformin ER 500 mg tablet,extended release 24 hr RxNorm: 86 0977 1 Tablet(s) PO QD 11/20/2011 12/19/2011 Inactive metformin ER 500 mg tablet,extended release 24 hr RxNorm: 86 0977 1 Tablet(s) PO QD 11/20/2011 11/19/2011 Inactive amitriptyline 100 mg tablet RxNorm: 174473 Tablet(s) PO QHS 1 a nd 1/2 tabs QHS 11/12/2011 11/13/2011 Inactive Valium 10 mg tablet RxNorm: 361547 1 Tablet(s) PO BID 11/09/2011 No S top Date Active Endocet 10 mg-325 mg tablet RxNorm: 5337545 1 Tablet(s) PO QID 10/0211/14/2011 Inactive as needed for severe pain Aricept 10 mg Tab RxNorm: 776993 1 Tablet(s) PO QD 10/05/2011 013 Inactive Valium 10 mg tablet RxNorm: 618111 1 Tablet(s) PO BID 10/05/2011 No S top Date Active Endocet 10 mg-325 mg Tab RxNorm: 8820176 1 Tablet(s) PO QID 012 10/09/2011 Inactive as needed for severe pain Aricept 10 mg Tab RxNorm: 256947 1 Tablet(s) PO QD 08/14/2011 012 Inactive Endocet 10 mg-325 mg Tab RxNorm: 0121357 1 Tablet(s) PO QID 012 08/31/2011 Inactive as needed for severe pain Valium 10 mg Tab RxNorm: 738409 1 Tablet(s) PO BID 08/02/2011 No Stop Date Active propranolol 60 mg tablet RxNorm: 627645 1 Tablet(s) PO BID 07/26/19 12 09/11/2011 Inactive amitriptyline 100 mg tablet RxNorm: 016457 Tablet(s) PO QHS 1 a nd /2 tabs QHS 06/20/2011 09/11/2011 Inactive buspirone 10 mg tablet RxNorm: 053592 1 Tablet(s) PO BID 06/18/2011 0 09/15/2011 Inactive propranolol 60 mg Tab RxNorm: 403052 1 Tablet(s) PO BID 06/18/2011 Inactive gabapentin 800 mg Tab RxNorm: 696011 1 Tablet(s) PO BID 06/18/2011 Inactive ropinirole 2 mg tablet RxNorm: 768111 1 Tablet(s) PO QHS 05/29/2011 0 08/26/2011 Inactive trimethoprim 100 mg Tab RxNorm: 655636 1 Tablet(s) PO QHS 05/29/2011 07/21/2012 Inactive Endocet 10 mg-325 mg Tab RxNorm: 0382739 1 Tablet(s) PO QID 012 2011 Inactive as needed for severe pain Valium 10 mg Tab RxNorm: 543986 1 Tablet(s) PO QHS N eed to take med as prescribed. this is a 40 day RX. No early fills. 05/17/2011 05/20/2018 Inactive propranolol 60 mg Tab RxNorm: 038408 1 Tablet(s) PO BID 04/16/2011 Inactive Neurontin 800 mg Tab RxNorm: 338095 1 Tablet(s) PO QHS 04/05/201103/2011 Inactive Endocet 10 mg-325 mg Tab RxNorm: 2626325 1 Tablet(s) PO QID 012 05/02/2011 Inactive as needed for severe pain oxycodone-acetaminophen 10 mg-325 mg tablet RxNorm: 4760936 1 Ta blet(s) PO Q4H 03/28/2011 05/19/2012 Inactive Valium 10 mg Tab RxNorm: 387095 1 Tablet(s) PO QHS 03/28/2011 012 Inactive buspirone 10 mg Tab RxNorm: 325150 1 Tablet(s) PO BID 03/27/201106/02 Inactive propranolol 60 mg Tab RxNorm: 463840 1 Tablet(s) PO BID 03/19/2011 Inactive Klor-Con M20 20 mEq Tab RxNorm: 8841236 1 Tablet(s) PO QD 03/19/2011 07/21/2012 Inactive Aricept 10 mg Tab RxNorm: 687191 1 Tablet(s) PO QD 02/27/2011 012 Inactive propranolol 60 mg Tab RxNorm: 258286 1 Tablet(s) PO BID 02/19/2011 Inactive omeprazole 40 mg capsule,delayed release RxNorm: 049068 1 Capsu le(s) PO BID 01/24/2011 05/23/2011 Inactive clindamycin 300 mg capsule RxNorm: 665336 1 Capsule(s) PO TID 01/2402/02/2011 Inactive propranolol 60 mg Tab RxNorm: 689843 1 Tablet(s) PO BID 01/22/2011 No Stop Date Active nystatin 100,000 unit/g Topical Cream RxNorm: 738414 Applicatio n TOP BID 01/15/2011 01/14/2011 Inactive to rash for 2-4 week s Diflucan 200 mg Tab RxNorm: 453662 1 Tablet(s) PO QD 01/15/201101/28 Inactive buspirone 10 mg Tab RxNorm: 317328 1 Tablet(s) PO BID 01/08/201103/05 Inactive Valium 10 mg Tab RxNorm: 068041 1 Tablet(s) PO QHS 01/05/2011 012 Inactive Diflucan 200 mg Tab RxNorm: 837218 1 Tablet(s) PO QD 01/01/201101/14 Inactive Diflucan 200 mg Tab RxNorm: 768632 1 Tablet(s) PO QD 12/18/201012/31 Inactive Valium 10 mg Tab RxNorm: 514870 1 Tablet(s) PO QHS 12/12/2010 011 Inactive Diflucan 200 mg Tab RxNorm: 428997 1 Tablet(s) PO QD 12/07/201012/18 Inactive Aricept 10 mg Tab RxNorm: 021697 1 Tablet(s) PO QD 11/20/2010 011 Inactive ropinirole 1 mg Tab RxNorm: 698421 1 Tablet(s) PO QHS 11/16/201005/03 Inactive enalapril maleate 5 mg Tab RxNorm: 362171 1 Tablet(s) PO QD 011 05/20/2018 Inactive buspirone 10 mg Tab RxNorm: 148256 1 Tablet(s) PO BID 11/16/201012/02 Inactive Valium 10 mg Tab RxNorm: 892292 1 Tablet(s) PO QHS 11/07/2010 011 Inactive Pyridium 100 mg Tab RxNorm: 8385960 1 Tablet(s) PO TID 11/02/201004/2010 Inactive Macrobid 100 mg Cap RxNorm: 4987663 1 Capsule(s) PO BID 11/02/2010 Inactive buspirone 10 mg Tab RxNorm: 789581 1 Tablet(s) PO QHS 10/18/201005/02 Inactive propranolol 60 mg Tab RxNorm: 993217 1 Tablet(s) PO BID 09/18/2010 Inactive Valium 10 mg Tab RxNorm: 026771 1 Tablet(s) PO QHS 09/05/2010 09/02/2 011 Inactive Aricept 10 mg Tab RxNorm: 502872 1 Tablet(s) PO QD 08/14/2010 011 Inactive Valium 10 mg Tab RxNorm: 729934 1 Tablet(s) PO QHS 06/26/2010 011 Inactive ropinirole 1 mg Tab RxNorm: 496004 1 Tablet(s) PO QHS 06/19/201010/02 Inactive omeprazole 40 mg Cap, delayed release RxNorm: 930196 1 Capsule( s) PO QD 06/07/2010 10/04/2010 Inactive Endocet 10 mg-325 mg Tab RxNorm: 7096237 1 Tablet(s) PO QID as needed for severe pain 06/07/2010 03/07/2011 Inactive Endocet 10 mg-325 mg Tab RxNorm: 6354110 1 Tablet(s) PO QID as needed for severe pain 05/04/2010 06/02/2010 Inactive Valium 10 mg Tab RxNorm: 191962 1 Tablet(s) PO QHS 05/01/2010 011 Inactive propranolol 60 mg Tab RxNorm: 563512 1 Tablet(s) PO BID 04/03/2010 Inactive Valium 10 mg Tab RxNorm: 086752 1 Tablet(s) PO QHS 03/28/2010 011 Inactive omeprazole 40 mg Cap, Delayed Release RxNorm: 380763 1 Capsule( s) PO QD 03/28/2010 06/06/2010 Inactive Endocet 10 mg-325 mg Tab RxNorm: 9834203 1 Tablet(s) PO QID prn ari n 03/27/2010 05/20/2018 Inactive Valium 10 mg Tab RxNorm: 014315 1 Tablet(s) PO QHS 02/20/2010 011 Inactive Diflucan 100 mg Tab RxNorm: 486107 1 Tablet(s) PO BID 01/23/201003/2009 Inactive Diflucan 100 mg Tab RxNorm: 308532 1 Tablet(s) PO BID 01/05/201001/02 Inactive Aricept 10 mg Tab RxNorm: 551940 1 Tablet(s) PO QD 12/01/2009 011 Inactive OxyContin 20 mg 12 hr Tab RxNorm: 1027373 1 Tablet(s) PO BID 200904/05/2010 Inactive oxycodone-acetaminophen 10 mg-325 mg Tab RxNorm: 3831304 1 Table t(s) PO Q4H 11/22/2009 11/26/2009 Inactive Phenergan 25 mg Tab RxNorm: 678951 1 Tablet(s) PO PRN MIGRAINE 11/0303/07/2011 Inactive Demerol 100 mg Tab RxNorm: 771240 1 Tablet(s) PO PRN MIGRAINE 11/2203/07/2011 Inactive Oxycodone-Acetaminophen 10 mg-325 mg Tab RxNorm: 8248984 1 Table t(s) PO Q4H 10/11/2009 10/15/2009 Inactive Percocet 10 mg-325 mg Tab RxNorm: 9835508 1 Tablet(s) PO Q4H 200910/24/2009 Inactive propranolol 60 mg Tab RxNorm: 147960 1 Tablet(s) PO BID 08/29/2009 Inactive Valium 10 mg Tab RxNorm: 633526 1 Tablet(s) PO QHS 08/16/2009 010 Inactive Keflex 500 mg Cap RxNorm: 018126 1 Capsule(s) PO BID 07/25/200907/31 Inactive Hydroxyzine 25 mg Tab RxNorm: 286656 1 Tablet(s) PO TID 07/25/2009 Inactive Prednisone 20 mg Tab RxNorm: 114351 1 Tablet(s) PO BID 07/25/2009 Inactive Demerol 100 mg Tab RxNorm: 077695 1 Tablet(s) PO PRN MIGRAINE 07/25 No Stop Date Active Ropinirole 1 mg Tab RxNorm: 385152 1 Tablet(s) PO HS 07/20/200902/14 Inactive Valium 10 mg Tab RxNorm: 189513 1 Tablet(s) PO QHS 07/18/2009 010 Inactive Endocet 10 mg-325 mg Tab RxNorm: 7729201 1 Tablet(s) PO TID 010 07/07/2009 Inactive Demerol 100 mg Tab RxNorm: 212973 1 Tablet(s) PO PRN MIGRAINE 06/08 No Stop Date Active Ropinirole 1 mg Tab RxNorm: 274042 1 Tablet(s) PO HS 05/16/200907/14 Inactive ipratropium-albuterol 0.5 mg-3 mg(2.5 mg base)/3 mL ne bulization soln RxNorm: 5931592 1 Unit Dose INH Q4H as needed No Start Date Active diltiazem CD 240 mg capsule,extended release 24 hr RxNorm: 8 05917 1 Capsule(s) PO QD No Start Date Active metoprolol tartrate 25 mg tablet RxNorm: 501113 1 Tablet(s) PO BID No Start Date Active MagOx 400 mg (241.3 mg magnesium) tablet RxNorm: 884875 1 Table t(s) PO BID No Start Date Active Vitamin B12 1000mcg Tablet RxNorm: 1 Tablet(s) PO QD No Start Date Active Vitamin D3 5,000 unit tablet RxNorm: 326479 1 Tablet(s) PO QD No Star t Date Active Tylenol Arthritis Pain 650 mg tablet,extended release RxNorm : 2633601 1 Tablet(s) PO Q4H No Start Date Active Lotrimin AF 2 % topical powder RxNorm: 353761 1 Application TOP BID No Start Date Active enalapril maleate 5 mg Tab RxNorm: 391928 1 Tablet(s) PO QD No Star t Date 07/20/2012 Inactive Demerol 100 mg Tab RxNorm: 236181 Tablet(s) PO PRN MIGRAINE No Star t Date 06/02/2009 Inactive metformin 500 mg tablet RxNorm: 374506 1 Tablet(s) PO QD No Start D ate 04/05/2013 Inactive Breo Ellipta 100 mcg-25 mcg/dose powder for inhalation RxNor m: 0173381 1 Puff(s) INH BID No Start Date 01/04/2016 Inactive Mag-Oxide 400 mg Tab RxNorm: 451423 1 Tablet(s) PO QD No Start Date 0 07/21/2012 Inactive Cipro 500 mg Tab RxNorm: 768675 1 Tablet(s) PO QD No Start Date 04/05 Inactive Ativan 0.5 mg tablet RxNorm: 456820 1 Tablet(s) PO TID as needed No Start Date 05/06/2019 Inactive melatonin 3 mg tablet RxNorm: 156470 2 Tablet(s) PO QHS No Start Da te 08/19/2018 Inactive buspirone 10 mg Tab RxNorm: 314603 1 Tablet(s) PO QD No Start Date Inactive sucralfate 100 mg/mL Oral Susp RxNorm: 329709 2 Teaspoon(s) PO QID No Start Date 07/21/2012 Inactive hydrocodone 5 mg-acetaminophen 325 mg tablet RxNorm: 736388 1 Tablet(s) PO Q4H as needed No Start Date 08/19/2018 Inactive Amaryl 2 mg tablet RxNorm: 514513 1 Tablet(s) PO BID No Start Date Inactive OxyContin 20 mg 12 hr Tab RxNorm: 0300891 1 Tablet(s) PO BID No Sta rt Date 11/27/2009 Inactive propranolol 40 mg tablet RxNorm: 616813 1 Tablet(s) PO QID No Start Date 01/19/2018 Inactive Trazadone 150 mg Tablet RxNorm: 1-2 Tablet(s) PO QHS prn sleep No Start Date 08/09/2010 Inactive propranolol 60 mg Tab RxNorm: 444911 1/2 Tablet(s) PO BID No Start Date 01/21/2011 Inactive insulin NPH and regular human subcutaneous RxNorm: 2708426 subcu taneous No Start Date 11/20/2018 Inactive Ativan 0.5 mg tablet RxNorm: 159396 1 Tablet(s) PO QID No Start Date 06/18/2016 Inactive Vasotec 5 mg Tab RxNorm: 674580 1 Tablet(s) PO BID No Start Date 06/2011 Inactive Toprol XL 50 mg tablet,extended release RxNorm: 000585 1 Tablet (s) PO BID No Start Date 04/05/2013 Inactive Ativan 0.5 mg tablet RxNorm: 099541 1 Tablet(s) PO TID No Start Date 05/25/2016 Inactive Klor-Con M20 20 mEq Tab RxNorm: 2629445 1 Tablet(s) PO QD No Start Date 03/19/2011 Inactive sumatriptan 100 mg tablet RxNorm: 906996 1 Tablet(s) PO at headache onset--repeat in 2hrs if remains No Start Date 07/21/2012 Inactive propranolol 60 mg Tab RxNorm: 132413 1 Tablet(s) PO BID No Start Da te 08/28/2009 Inactive Cholestyramine Light 4 gram Oral Powder RxNorm: 3126108 1 Unit Dose PO QD in water No Start Date 07/21/2012 Inactive nystatin 100,000 unit/g Topical Powder RxNorm: 433622 Applicati on TOP BID No Start Date 07/21/2012 Inactive vitamin C90-pclod acid sublingual RxNorm: sublingual No Start Date 07/05/2013 Inactive cyclobenzaprine 5 mg tablet RxNorm: 871308 1/2-1 Tablet (s) PO TID as needed for muscle spasm No Start Date 07/18/2017 Inactive tramadol 50 mg tablet RxNorm: 838356 2 Tablet(s) PO TID as need ed for pain No Start Date 09/01/2014 Inactive aspirin 81 mg Tab RxNorm: 743006 1 Tablet(s) PO QOD No Start Date 04/2013 Inactive Vitamin B12 1000mcg Tablet RxNorm: 1 Tablet(s) PO QD No Start Date 07/18/2017 Inactive cholestyramine (with sugar) 4 gram oral powder RxNorm: 56178 3 1 Unit(s) PO QD as needed No Start Date 05/20/2018 Inactive ProAir HFA 90 mcg/Actuation Aerosol Inhaler RxNorm: 686704 2 Puff(s) INH Q4H prn shortness of breath No Start Date 07/21/2012 Inactive pravastatin 10 mg Tab RxNorm: 236295 1 Tablet(s) PO QD No Start Date 07/21/2012 Inactive gabapentin 800 mg Tab RxNorm: 629384 1 Tablet(s) PO BID No Start Da te 06/03/2011 Inactive Endocet 10 mg-325 mg Tab RxNorm: 6864462 1 Tablet(s) PO TID No Star t Date 06/02/2009 Inactive Naproxen 500 mg Tab RxNorm: 661227 1 Tablet(s) PO BID No Start Date 0 04/05/2010 Inactive Valium 10 mg Tab RxNorm: 167598 1 Tablet(s) PO BID No Start Date 07/04 Inactive enalapril maleate 5 mg Tab RxNorm: 497048 1 Tablet(s) PO QD No Star t Date 11/15/2010 Inactive doxepin 10 mg capsule RxNorm: 7635879 2 Capsule(s) PO QHS No Start Date 09/17/2018 Inactive MS Contin 15 mg Tab RxNorm: 911782 1 Tablet(s) PO BID No Start Date 0 09/18/2010 Inactive buspirone 5 mg tablet RxNorm: 339620 1 Tablet(s) PO TID No Start Da te 12/01/2013 Inactive [place]wn 3 Fish Oil Cap RxNorm: 1 Capsule(s) PO QD No Start Date 07/03 Inactive enalapril maleate 5 mg Tab RxNorm: 138191 1/2 Tablet(s) PO QD No St art Date 03/07/2011 Inactive Lyrica 75 mg capsule RxNorm: 931935 1 Capsule(s) PO QHS No Start Da te 02/08/2014 Inactive Lopressor 100 mg tablet RxNorm: 106088 1 Tablet(s) PO BID No Start Date 06/08/2018 Inactive Lantus Solostar U-100 Insulin 100 unit/mL (3 mL) subcu taneous pen RxNorm: 336403 45 Unit(s) SQ QAM No Start Date 05/20/2018 Inactive aspirin 81 mg tablet RxNorm: 029732 1 Tablet(s) PO QD No Start Date 0 09/14/2015 Inactive insulin NPH isophane U-100 human subcutaneous RxNorm: 181899 beckwith bcutaneous No Start Date 04/20/2019 Inactive sumatriptan 100 mg tablet RxNorm: 730094 1 Tablet(s) PO at headache onset. May repeat 1 in two hours if headache remains. Max of 2 per 24 hours No Start Date 04/01/2018 Inactive gabapentin 300 mg capsule RxNorm: 679072 1 Capsule(s) PO QHS No Sta rt Date 02/04/2018 Inactive Topamax 25 mg Tab RxNorm: 529385 Oral No Start Date 03/07/2011 In active Senokot-S 8.6 mg-50 mg Tab RxNorm: 8806278 1 Tablet(s) PO QD No Sta rt Date 03/07/2011 Inactive metformin ER 500 mg 24 hr tablet,extended release RxNorm: 18 01293 1 Tablet(s) PO QD No Start Date 05/20/2018 Inactive Symbicort 80 mcg-4.5 mcg/actuation HFA Aerosol Inhaler RxNor m: 2866428 2 Puff(s) INH BID No Start Date 04/05/2013 Inactive propranolol 60 mg Tab RxNorm: 453272 1/2 Tablet(s) PO BID No Start Date 07/21/2012 Inactive metformin ER 500 mg 24 hr tablet,extended release RxNorm: 18 14270 2 Tablet(s) PO QD No Start Date 12/16/2017 Inactive Insulin Syringe 1 mL 29 gauge x 1/2" RxNorm: 2 s yringes daily with insulin Dx: E11.65 No Start Date 10/07/2018 Inactive Amitriptyline 75 mg Tab RxNorm: 835569 1 Tablet(s) PO QHS No Start Date 10/23/2009 Inactive donepezil 10 mg Tab RxNorm: 675115 1 Tablet(s) PO QD No Start Date Inactive Lantus Solostar U-100 Insulin 100 unit/mL (3 mL) subcu taneous pen RxNorm: 394207 36 Unit(s) SQ QAM No Start Date 12/24/2017 Inactive Miacalcin 200 unit/Actuation Nasal [place] Aerosol RxNorm: 261 204 1 [place] NASAL QD Alternate nostrils each day No Start Date 04/05/2010 Inactive Amitriptyline 150 mg Tab RxNorm: 588753 1 Tablet(s) PO QHS No Start Date 01/04/2010 Inactive Bystolic 5 mg tablet RxNorm: 787315 1 Tablet(s) PO QD No Start Date 0 08/13/2012 Inactive Aricept 10 mg Tab RxNorm: 788530 1 Tablet(s) PO QD No Start Date 11/03 Inactive Lantus Solostar U-100 Insulin 100 unit/mL (3 mL) subcu taneous pen RxNorm: 412169 50 Unit(s) SQ QAM No Start Date 08/27/2018 Inactive albuterol sulfate 2.5 mg/3 mL (0.083 %) Neb Solution RxNorm: 562415 1 Unit Dose INH QID as needed No Start Date 08/23/2015 Inactive Symbicort 160 mcg-4.5 mcg/actuation HFA Aerosol Inhaler RxNo rm: 0874260 2 Puff(s) INH BID No Start Date 12/03/2011 Inactive Savella 50 mg Tab RxNorm: 975585 1 Tablet(s) PO BID No Start Date 04/2010 Inactive amitriptyline 100 mg Tab RxNorm: 737651 1 1/2 Tablet(s) PO QHS No S tart Date 06/19/2011 Inactive nystatin 100,000 unit/g Topical Cream RxNorm: 112309 Ap plication TOP BID to rash for 2-4 weeks No Start Date 01/14/2011 Inactive Trelegy Ellipta 100 mcg-62.5 mcg-25 mcg powder for inhalatio n RxNorm: 9127466 1 Puff(s) INH QD No Start Date 12/16/2017 Inactive Lyrica 150 mg capsule RxNorm: 210689 1 Capsule(s) PO QHS No Start D ate 12/04/2015 Inactive sennosides 8.6 mg tablet RxNorm: 877136 1 Tablet(s) PO BID No Start Date 09/07/2018 Inactive metformin ER 500 mg tablet,extended release 24 hr RxNorm: 86 0975 1 Tablet(s) PO QD No Start Date 10/22/2017 Inactive Fish Oil 1,000 mg Cap RxNorm: 1 Capsule(s) PO QD No Start Date 06/2011 Inactive Zyrtec 10 mg Tab RxNorm: 1557880 1 Tablet(s) PO QD No Start Date 07/03 Inactive albuterol sulfate HFA 90 mcg/actuation aerosol inhaler RxNor m: 3942947 2 Puff(s) INH Q4H as needed for cough No Start Date 09/30/2013 Inactive trazodone 150 mg tablet RxNorm: 903796 1 Tablet(s) PO QHS No Start Date 07/21/2012 Inactive Spiriva with HandiHaler 18 mcg & inhalation capsules RxNorm: 438339 1 Capsule(s) INH QD No Start Date 04/05/2013 Inactive Coreg 3.125 mg Tab RxNorm: 407881 1 Tablet(s) PO BID No Start Date Inactive Phenergan 25 mg Tab RxNorm: 630402 Tablet(s) PO PRN MIGRAINE No Sta rt Date 11/21/2009 Inactive Vitamin D 50,000 unit Cap RxNorm: 3076459 1 Capsule(s) PO QW No Sta rt Date 03/07/2011 Inactive Januvia 100 mg tablet RxNorm: 080149 1 Tablet(s) PO QD No Start Date 10/25/2015 Inactive Eliquis 5 mg tablet RxNorm: 0764351 1 Tablet(s) PO BID No Start Date 08/19/2018 Inactive Advair Diskus 500 mcg-50 mcg/Dose for Inhalation RxNorm: 270241 1 INH BID No Start Date 07/21/2012 Inactive Vitamin D3 5,000 unit tablet RxNorm: 117341 1 Tablet(s) PO QD No St art Date 07/18/2017 Inactive Amaryl 2 mg tablet RxNorm: 825544 1 Tablet(s) PO QD No Start Date 06/2015 Inactive Actos 30 mg tablet RxNorm: 906425 1 Tablet(s) PO QD No Start Date Inactive promethazine 25 mg tablet RxNorm: 092355 1 Tablet(s) PO Q4H prn N/V No Start Date 07/21/2012 Inactive ProAir HFA 90 mcg/actuation Aerosol Inhaler RxNorm: 328283 2 Puff(s) INH Q4H prn dyspnea No Start Date 07/21/2012 Inactive Dexilant 60 mg Capsule RxNorm: 782533 1 Capsule(s) PO QD No Start D ate 01/27/2012 Inactive Lantus Solostar U-100 Insulin 100 unit/mL (3 mL) subcu taneous pen RxNorm: 986214 38 Unit(s) SQ QAM No Start Date 05/20/2018 Inactive Valium 10 mg Tab RxNorm: 946862 1 Tablet(s) PO QHS AND PRN No Start Date 10/24/2009 Inactive ZOFRAN ODT 8 mg disintegrating tablet RxNorm: 271984 1 Tablet(s ) PO Q6H No Start [...] Date S ervice Location MICROALBUMIN URINE RANDOM 02377 MICRL MG/L 14.9 MG/L Unknown MICROALBUMIN URINE RANDOM 94846 XM.ALB/CRE 6.1 MG/GCR Unknown MICROALBUMIN URINE RANDOM 01963 CREAT MG/D 243 MG/DL Unknown MICROALBUMIN URINE RANDOM 61708 CRE/100 2.43 G/L 03/05 Unknown PROTEIN/CREAT URINE WITH RATIO 32442|47342 PROT R U 14 MG/D L 04/01/2014 Unknown PROTEIN/CREAT URINE WITH RATIO 58911|87781 CREAT R U 254 MG/ DL 04/01/2014 Unknown PROTEIN/CREAT URINE WITH RATIO 10886|67480 XRATIO P/C 55 MG/ G 04/01/2014 Unknown URINALYSIS 20918 PROTEIN UR NEG 04/28/2010 Unknown URINALYSIS 23225 HEMGLBN UR NEG 04/28/2010 Unknown URINALYSIS 85829 GLUCOSE UR NEG 04/28/2010 Unknown URINALYSIS 97432 KETONES UR NEG 04/28/2010 Unknown URINALYSIS 24169 PH U 5.5 04/28/2010 Unknown URINALYSIS 89690 SP GR U 1.025 04/28/2010 Unknown URINALYSIS 10390 BILRUBN UR NEG 04/28/2010 Unknown URINALYSIS 84970 LEUKO UR 2+ 04/28/2010 Unknown URINALYSIS 15381 NITRITE UR NEG 04/28/2010 Unknown MICR CUL? [id number] WBC/HPF 6-10 04/28/2010 Unknown MICR CUL? [id number] RBC/HPF 0-5 04/28/2010 Unknown MICR CUL? [id number] HYAL CAST 16-25 04/28/2010 Unknown MICR CUL? [id number] SP TO YOLIE? NO 04/28/2010 Unknown MICR CUL? [id number] APPEAR UR NORMAL 04/28/2010 Unknown MICR CUL? [id number] SQ EPI/LPF FEW 04/28/2010 Unknown Procedures Procedure Codes Date URINALYSIS NONAUTO W/O SCOPE CPT-4: 41529 04/16/2019 URINE CULTURE/ COLONY COUNT CPT-4: 38615 04/16/2019 CEFTRIAXONE SODIUM INJECTION CPT-4: J0696 04/16/2019 THER/PROPH/DIAG INJ SC/IM CPT-4: 15371 04/16/2019 DRAIN/INJECT JOINT/BURSA CPT-4: 12083 01/22/2019 TRIAMCINOLONE ACET INJ NOS CPT-4: J3301 01/22/2019 DEXAMETHASONE SODIUM PHOS CPT-4: J1100 01/22/2019 URINE CULTURE/ COLONY COUNT CPT-4: 14311 01/07/2019 URINALYSIS NONAUTO W/O SCOPE CPT-4: 95379 01/07/2019 CEFTRIAXONE SODIUM INJECTION CPT-4: J0696 01/07/2019 THER/PROPH/DIAG INJ SC/IM CPT-4: 43872 01/07/2019 FLU VACC PRSV FREE INC ANTIG 65 AND OLDER CPT-4: 07159 12/24/2018 FLU VACC PRSV FREE INC ANTIG 65 AND OLDER CPT-4: 50987 12/24/2018 ADMIN INFLUENZA VIRUS VAC CPT-4: G0008 12/24/2018 THER/PROPH/DIAG INJ SC/IM CPT-4: 16122 11/04/2018 KETOROLAC TROMETHAMINE INJ CPT-4: J1885 11/04/2018 PROMETHAZINE HCL INJECTION CPT-4: J2550 11/04/2018 PPPS, subseq visit CPT-4: G0439 09/18/2018 THER/PROPH/DIAG INJ SC/IM CPT-4: 20765 04/01/2018 KETOROLAC TROMETHAMINE INJ CPT-4: J1885 04/01/2018 PROMETHAZINE HCL INJECTION CPT-4: J2550 04/01/2018 URINE CULTURE/ COLONY COUNT CPT-4: 12205 03/17/2018 URINALYSIS NONAUTO W/O SCOPE CPT-4: 38999 03/17/2018 FLU VACC PRSV FREE INC ANTIG 65 AND OLDER CPT-4: 85100 12/17/2017 PNEUMOCOCCAL VACC 23 RANDALL IM CPT-4: 49330 12/17/2017 ADMIN INFLUENZA VIRUS VAC CPT-4: G0008 12/17/2017 ADMIN PNEUMOCOCCAL VACCINE CPT-4: G0009 12/17/2017 PPPS, subseq visit CPT-4: G0439 09/17/2017 THER/PROPH/DIAG INJ SC/IM CPT-4: 08792 08/26/2017 KETOROLAC TROMETHAMINE INJ CPT-4: J1885 08/26/2017 PROMETHAZINE HCL INJECTION CPT-4: J2550 08/26/2017 URINALYSIS NONAUTO W/O SCOPE CPT-4: 44949 07/19/2017 URINE CULTURE/ COLONY COUNT CPT-4: 05511 07/19/2017 CEFTRIAXONE SODIUM INJECTION CPT-4: J0696 07/19/2017 THER/PROPH/DIAG INJ SC/IM CPT-4: 10495 07/19/2017 THER/PROPH/DIAG INJ SC/IM CPT-4: 35591 07/19/2017 TRIAMCINOLONE ACET INJ NOS CPT-4: J3301 07/19/2017 PRESCRIP TRANSMIT VIA ERX SY CPT-4: G8553 05/07/2017 PRESCRIP TRANSMIT VIA ERX SY CPT-4: G8553 02/22/2017 PRESCRIP TRANSMIT VIA ERX SY CPT-4: G8553 01/23/2017 FLU VACC PRSV FREE INC ANTIG 65 AND OLDER CPT-4: 24238 12/20/2016 PNEUMOCOCCAL VACC 13 RANDALL IM CPT-4: 11376 12/20/2016 ADMIN INFLUENZA VIRUS VAC CPT-4: G0008 12/20/2016 ADMIN PNEUMOCOCCAL VACCINE CPT-4: G0009 12/20/2016 URINALYSIS NONAUTO W/O SCOPE CPT-4: 48538 10/08/2016 URINE CULTURE/ COLONY COUNT CPT-4: 14625 10/08/2016 PRESCRIP TRANSMIT VIA ERX SY CPT-4: G8553 10/08/2016 PRESCRIP TRANSMIT VIA ERX SY CPT-4: G8553 09/19/2016 PRESCRIP TRANSMIT VIA ERX SY CPT-4: G8553 08/20/2016 PRESCRIP TRANSMIT VIA ERX SY CPT-4: G8553 02/29/2016 KETOROLAC TROMETHAMINE INJ CPT-4: J1885 02/02/2016 THER/PROPH/DIAG INJ SC/IM CPT-4: 47878 02/02/2016 PROMETHAZINE HCL INJECTION CPT-4: J2550 02/02/2016 PRESCRIP TRANSMIT VIA ERX SY CPT-4: G8553 02/02/2016 FLU VACC PRSV FREE INC ANTIG 65 AND OLDER CPT-4: 56261 01/05/2016 PPPS, subseq visit CPT-4: G0439 01/05/2016 ADMIN INFLUENZA VIRUS VAC CPT-4: G0008 01/05/2016 URINE CULTURE/ COLONY COUNT CPT-4: 24532 12/05/2015 URINALYSIS NONAUTO W/O SCOPE CPT-4: 13000 12/05/2015 PRESCRIP TRANSMIT VIA ERX SY CPT-4: G8553 12/05/2015 PRESCRIP TRANSMIT VIA ERX SY CPT-4: G8553 10/26/2015 URINALYSIS NONAUTO W/O SCOPE CPT-4: 35212 10/05/2015 URINE CULTURE/ COLONY COUNT CPT-4: 89311 10/05/2015 PRESCRIP TRANSMIT VIA ERX SY CPT-4: G8553 10/05/2015 SERVICE REQUIRED FOR PMD CPT-4: G0372 09/15/2015 PRESCRIP TRANSMIT VIA ERX SY CPT-4: G8553 09/15/2015 SPECIAL REPORTS OR FORMS CPT-4: 37453 08/25/2015 PRESCRIP TRANSMIT VIA ERX SY CPT-4: G8553 07/05/2015 URINALYSIS NONAUTO W/O SCOPE CPT-4: 73343 03/30/2015 ASSAY, GLUCOSE, BLOOD QUANT CPT-4: 96363 03/30/2015 URINE CULTURE/ COLONY COUNT CPT-4: 69904 03/30/2015 PRESCRIP TRANSMIT VIA ERX SY CPT-4: G8553 03/30/2015 PRESCRIP TRANSMIT VIA ERX SY CPT-4: G8553 02/03/2015 FLU VACC PRSV FREE INC ANTIG 65 AND OLDER CPT-4: 60115 12/29/2014 ADMIN INFLUENZA VIRUS VAC CPT-4: G0008 12/29/2014 PRESCRIP TRANSMIT VIA ERX SY CPT-4: G8553 12/29/2014 PRESCRIP TRANSMIT VIA ERX SY CPT-4: G8553 09/02/2014 PROTEIN/CREAT URINE WITH RATIO CPT-4: 45824|03006 5 MICROALBUMIN QUANTITATIVE CPT-4: 67505 04/01/2014 PRESCRIP TRANSMIT VIA ERX SY CPT-4: G8553 03/16/2014 PRESCRIP TRANSMIT VIA ERX SY CPT-4: G8553 03/09/2014 THER/PROPH/DIAG INJ SC/IM CPT-4: 11744 03/01/2014 TRIAMCINOLONE ACET INJ NOS CPT-4: J3301 03/01/2014 PRESCRIP TRANSMIT VIA ERX SY CPT-4: G8553 02/09/2014 URINE CULTURE/ COLONY COUNT CPT-4: 44097 10/30/2013 URINALYSIS NONAUTO W/O SCOPE CPT-4: 62999 10/21/2013 URINE CULTURE/ COLONY COUNT CPT-4: 69965 10/21/2013 DESTRUCT PREMALG LESION (Cryosurgery) CPT-4: 15666 PRESCRIP TRANSMIT VIA ERX SY CPT-4: G8553 10/05/2013 URINALYSIS NONAUTO W/O SCOPE CPT-4: 47602 08/04/2013 URINE CULTURE/ COLONY COUNT CPT-4: 50972 08/04/2013 PRESCRIP TRANSMIT VIA ERX SY CPT-4: G8553 08/04/2013 THER/PROPH/DIAG INJ SC/IM CPT-4: 55461 07/13/2013 TRIAMCINOLONE ACET INJ NOS CPT-4: J3301 07/13/2013 PRESCRIP TRANSMIT VIA ERX SY CPT-4: G8553 05/27/2013 URINALYSIS NONAUTO W/O SCOPE CPT-4: 15960 05/25/2013 URINE CULTURE/ COLONY COUNT CPT-4: 17955 05/25/2013 THER/PROPH/DIAG INJ SC/IM CPT-4: 80462 05/04/2013 VITAMIN B12 INJECTION CPT-4: J3420 05/04/2013 THER/PROPH/DIAG INJ SC/IM CPT-4: 88232 04/17/2013 VITAMIN B12 INJECTION CPT-4: J3420 04/17/2013 THER/PROPH/DIAG INJ SC/IM CPT-4: 93241 04/17/2013 METHYLPREDNISOLONE 40 MG INJ CPT-4: J1030 04/17/2013 TRIAMCINOLONE ACET INJ NOS CPT-4: J3301 04/17/2013 URINALYSIS NONAUTO W/O SCOPE CPT-4: 89811 04/06/2013 URINE CULTURE/ COLONY COUNT CPT-4: 47033 04/06/2013 PRESCRIP TRANSMIT VIA ERX SY CPT-4: G8553 04/06/2013 KETOROLAC TROMETHAMINE INJ CPT-4: J1885 06/25/2012 PROMETHAZINE HCL INJECTION CPT-4: J2550 06/25/2012 THER/PROPH/DIAG INJ SC/IM CPT-4: 03106 06/25/2012 THER/PROPH/DIAG INJ SC/IM CPT-4: 53602 06/24/2012 METHYLPREDNISOLONE 40 MG INJ CPT-4: J1030 06/24/2012 TRIAMCINOLONE ACET INJ NOS CPT-4: J3301 06/24/2012 URINE CULTURE/ COLONY COUNT CPT-4: 89209 06/24/2012 THER/PROPH/DIAG INJ SC/IM CPT-4: 10354 05/20/2012 KETOROLAC TROMETHAMINE INJ CPT-4: J1885 05/20/2012 THER/PROPH/DIAG INJ SC/IM CPT-4: 46020 05/20/2012 PROMETHAZINE HCL INJECTION CPT-4: J2550 05/20/2012 DRAIN/INJECT JOINT/BURSA CPT-4: 81874 02/13/2012 METHYLPREDNISOLONE 40 MG INJ CPT-4: J1030 02/13/2012 TRIAMCINOLONE ACET INJ NOS CPT-4: J3301 02/13/2012 THER/PROPH/DIAG INJ SC/IM CPT-4: 13843 11/14/2011 METHYLPREDNISOLONE 40 MG INJ CPT-4: J1030 11/14/2011 TRIAMCINOLONE ACET INJ NOS CPT-4: J3301 11/14/2011 THER/PROPH/DIAG INJ SC/IM CPT-4: 72473 09/12/2011 KETOROLAC TROMETHAMINE INJ CPT-4: J1885 09/12/2011 THER/PROPH/DIAG INJ SC/IM CPT-4: 81066 08/09/2011 METHYLPREDNISOLONE 40 MG INJ CPT-4: J1030 08/09/2011 TRIAMCINOLONE ACET INJ NOS CPT-4: J3301 08/09/2011 URINE CULTURE/ COLONY COUNT CPT-4: 96451 07/03/2011 URINE CULTURE/ COLONY COUNT CPT-4: 80522 06/04/2011 THER/PROPH/DIAG INJ SC/IM CPT-4: 81288 05/03/2011 METHYLPREDNISOLONE 40 MG INJ CPT-4: J1030 05/03/2011 TRIAMCINOLONE ACET INJ NOS CPT-4: J3301 05/03/2011 URINALYSIS NONAUTO W/O SCOPE CPT-4: 79421 01/24/2011 URINE CULTURE/ COLONY COUNT CPT-4: 39846 01/24/2011 FLUZONE, 5ML (Medicare) CPT-4: Q2038 01/02/2011 ADMIN INFLUENZA VIRUS VAC CPT-4: G0008 01/02/2011 ASSAY, GLUCOSE, BLOOD QUANT CPT-4: 86263 12/07/2010 URINE CULTURE/ COLONY COUNT CPT-4: 58315 11/02/2010 THER/PROPH/DIAG INJ SC/IM CPT-4: 51598 10/18/2010 METHYLPREDNISOLONE 40 MG INJ CPT-4: J1030 10/18/2010 TRIAMCINOLONE ACET INJ NOS CPT-4: J3301 10/18/2010 TRIAMCINOLONE ACET INJ NOS CPT-4: J3301 05/11/2010 METHYLPREDNISOLONE 40 MG INJ CPT-4: J1030 05/11/2010 THER/PROPH/DIAG INJ SC/IM CPT-4: 46714 05/11/2010 TRIAMCINOLONE ACET INJ NOS CPT-4: J3301 02/09/2010 METHYLPREDNISOLONE 40 MG INJ CPT-4: J1030 02/09/2010 THER/PROPH/DIAG INJ SC/IM CPT-4: 38719 02/09/2010 MD SERVICE REQUIRED FOR PMD CPT-4: G0372 02/09/2010 FLU VACCINE 3 YRS & > IM UP 64 CPT-4: 70410 0 PNEUMOCOCCAL VACC 23 RANDALL IM CPT-4: 26937 12/07/2009 ADMIN INFLUENZA VIRUS VAC CPT-4: G0008 12/07/2009 ADMIN PNEUMOCOCCAL VACCINE CPT-4: G0009 12/07/2009 TRIAMCINOLONE ACET INJ NOS CPT-4: J3301 05/26/2009 THER/PROPH/DIAG INJ SC/IM CPT-4: 83301 05/26/2009 METHYLPREDNISOLONE 80 MG INJ CPT-4: J1040 [...] 1: 114/72 Code: 8480-6 BMI: 37.8 Code: 41514-3 Heart Rate 1: 72 bpm Height: 5'3" [...] 1: 106/68 Code: 8480-6 BMI: 35.7 Code: 40021-5 Heart Rate 1: 72 bpm Height: 5'4" Respiratory Rate: 20 bpm SpO2: 98% Tempera ture: 36.7 (C) / 98.0 (F) Weight: 208 lbs 04/16/2018 Blood Pressure 1: 132/82 Code: 8480-6 BMI: 37.9 Code: 82351-7 Heart Rate 1: 72 bpm Height: 5'4" Respiratory Rate: 20 bpm SpO2: 96% Tempera ture: 37.1 (C) / 98.8 (F) Weight: 221 lbs 04/01/2018 Blood Pressure 1: 150/90 Code: 8480-6 Heart Rate 1: 72 bpm Respiratory Rate: 22 bpm SpO2: 95% Temperature: 36.4 (C) / 97.6 (F) We ight: 216 lbs 03/06/2018 Blood Pressure 1: 126/78 Code: 8480-6 BMI: 37.4 Code: 00990-9 Heart Rate 1: 68 bpm Height: 5'4" [...] ight: 222 lbs 12/25/2017 BMI: 37.8 Code: 20272-4 Heart Rate 1: 76 bpm Height: 5 '4" Respiratory Rate: 20 bpm SpO2: 96% Temperature: 37.3 (C) / 99.2 (F) Weight: 220 lbs 12/17/2017 Blood Pressure 1: 132/78 Code: 8480-6 BMI: 37.2 Code: 54691-0 Heart Rate 1: 88 bpm Height: 5'4" Respiratory Rate: 20 bpm SpO2: 96% Tempera ture: 37.3 (C) / 99.2 (F) Weight: 217 lbs 10/30/2017 Blood Pressure 1: 114/68 Code: 8480-6 BMI: 36.4 Code: 48099-0 Heart Rate 1: 72 bpm Height: 5'4" Respiratory Rate: 22 bpm SpO2: 96% Tempera ture: 36.8 (C) / 98.2 (F) Weight: 212 lbs 10/23/2017 Blood Pressure 1: 124/78 Code: 8480-6 Heart Rate 1: 72 bpm Respiratory Rate: 24 bpm SpO2: 94% Temperature: 36.6 (C) / 97.9 (F) We ight: 212 lbs 09/17/2017 Blood Pressure 1: 128/82 Code: 8480-6 BMI: 37.4 Code: 82460-3 Heart Rate 1: 72 bpm Height: 5'4" Respiratory Rate: 20 bpm SpO2: 96% Tempera ture: 37.0 (C) / 98.6 (F) Weight: 218 lbs 07/19/2017 Blood Pressure 1: 136/84 Code: 8480-6 BMI: 36.6 Code: 03595-5 Heart Rate 1: 88 bpm Height: 5'4" Respiratory Rate: 20 bpm SpO2: 97% Tempera ture: 36.7 (C) / 98.0 (F) Weight: 213 lbs 05/29/2017 Blood Pressure 1: 136/82 Code: 8480-6 BMI: 36.7 Code: 56834-6 Heart Rate 1: 72 bpm Height: 5'4" Respiratory Rate: 20 bpm SpO2: 97% Tempera ture: 36.9 (C) / 98.4 (F) Weight: 214 lbs 05/07/2017 Blood Pressure 1: 122/80 Code: 8480-6 BMI: 37.1 Code: 17927-6 Heart Rate 1: 80 bpm Height: 5'4" Respiratory Rate: 24 bpm SpO2: 96% Tempera ture: 36.1 (C) / 97.0 (F) Weight: 216 lbs 03/18/2017 BMI: 36.7 Code: 26212-1 Heart Rate 1: 80 bpm Height: 5 '4" Respiratory Rate: 22 bpm SpO2: 95% Temperature: 36.9 (C) / 98.4 (F) Weight: 214 lbs 02/27/2017 Blood Pressure 1: 146/94 Code: 8480-6 BMI: 36.6 Code: 76620-3 Heart Rate 1: 76 bpm Height: 5'4" Respiratory Rate: 22 bpm SpO2: 97% Tempera ture: 36.6 (C) / 97.9 (F) Weight: 213 lbs 02/22/2017 Blood Pressure 1: 126/90 Code: 8480-6 BMI: 36.4 Code: 62185-5 Heart Rate 1: 84 bpm Height: 5'4" Respiratory Rate: 22 bpm SpO2: 95% Tempera ture: 36.9 (C) / 98.4 (F) Weight: 212 lbs 01/23/2017 Blood Pressure 1: 146/82 Code: 8480-6 BMI: 37.6 Code: 67367-4 Heart Rate 1: 96 bpm Height: 5'4" Respiratory Rate: 20 bpm SpO2: 96% Tempera ture: 36.9 (C) / 98.4 (F) Weight: 219 lbs 12/20/2016 Blood Pressure 1: 126/70 Code: 8480-6 BMI: 37.2 Code: 71478-6 Heart Rate 1: 76 bpm Height: 5'4" Respiratory Rate: 22 bpm SpO2: 95% Tempera ture: 36.6 (C) / 97.8 (F) Weight: 217 lbs 10/08/2016 Blood Pressure 1: 128/82 Code: 8480-6 BMI: 36.9 Code: 80752-6 Heart Rate 1: 76 bpm Height: 5'4" Respiratory Rate: 20 bpm SpO2: 95% Tempera ture: 37.0 (C) / 98.6 (F) Weight: 215 lbs 09/19/2016 Blood Pressure 1: 144/78 Code: 8480-6 BMI: 37.8 Code: 33123-4 Heart Rate 1: 76 bpm Height: 5'4" Respiratory Rate: 22 bpm SpO2: 95% Tempera ture: 37.0 (C) / 98.6 (F) Weight: 220 lbs 08/20/2016 Blood Pressure 1: 140/86 Code: 8480-6 BMI: 37.4 Code: 43990-1 Heart Rate 1: 80 bpm Height: 5'4" Respiratory Rate: 20 bpm SpO2: 95% Tempera ture: 36.9 (C) / 98.4 (F) Weight: 218 lbs 06/19/2016 Blood Pressure 1: 124 Code: 8480-6 BMI: 37.8 Code: 44418-0 Heart Rate 1: 74 bpm Height: 5'4" Respiratory Rate: 24 bpm SpO2: 96% Tempera ture: 36.9 (C) / 98.4 (F) Weight: 220 lbs 06/04/2016 Blood Pressure 1: 124/78 Code: 8480-6 BMI: 38.8 Code: 02123-1 Heart Rate 1: 72 bpm Height: 5'4" Respiratory Rate: 24 bpm SpO2: 95% Tempera ture: 36.8 (C) / 98.2 (F) Weight: 226 lbs 05/02/2016 Blood Pressure 1: 136/90 Code: 8480-6 BMI: 37.6 Code: 47588-7 Heart Rate 1: 72 bpm Height: 5'4" Respiratory Rate: 24 bpm SpO2: 96% Tempera ture: 36.9 (C) / 98.4 (F) Weight: 219 lbs 04/03/2016 Blood Pressure 1: 126/78 Code: 8480-6 BMI: 38.1 Code: 01756-0 Heart Rate 1: 72 bpm Height: 5'4" Respiratory Rate: 22 bpm SpO2: 94% Tempera ture: 36.9 (C) / 98.4 (F) Weight: 222 lbs 02/29/2016 Blood Pressure 1: 132/78 Code: 8480-6 Heart Rate 1: 78 bpm Height: Respiratory Rate: 24 bpm SpO2: 95% Temperature: 36.4 (C) / 97.6 (F) We ight: 02/02/2016 Blood Pressure 1: 124/78 Code: 8480-6 BMI: 37.6 Code: 81812-5 Heart Rate 1: 76 bpm Height: 5'4" Respiratory Rate: 20 bpm SpO2: 95% Tempera ture: 36.8 (C) / 98.2 (F) Weight: 219 lbs 01/05/2016 Blood Pressure 1: 126/70 Code: 8480-6 BMI: 37.1 Code: 58076-8 Heart Rate 1: 76 bpm Height: 5'4" Respiratory Rate: 20 bpm Temperature: 36 .6 (C) / 97.8 (F) Weight: 216 lbs 12/05/2015 Blood Pressure 1: 126/72 Code: 8480-6 BMI: 36.9 Code: 51653-2 Heart Rate 1: 92 bpm Height: 5'4" Respiratory Rate: 20 bpm Temperature: 36 .7 (C) / 98.1 (F) Weight: 215 lbs 10/26/2015 Blood Pressure 1: 142/80 Code: 8480-6 BMI: 36.4 Code: 26665-4 Heart Rate 1: 82 bpm Height: 5'4" Respiratory Rate: 24 bpm SpO2: 92% Tempera ture: 35.9 (C) / 96.7 (F) Weight: 212 lbs 10/05/2015 Blood Pressure 1: 136/82 Code: 8480-6 Heart Rate 1: 80 bpm Respiratory Rate: 18 bpm SpO2: 98% Temperature: 35.7 (C) / 96.3 (F) We ight: 214 lbs 09/15/2015 Blood Pressure 1: 116/80 Code: 8480-6 BMI: 34.6 Code: 85664-8 Heart Rate 1: 76 bpm Height: 5'6" Respiratory Rate: 20 bpm Temperature: 36 .6 (C) / 97.9 (F) Weight: 211 lbs 08/24/2015 Blood Pressure 1: 124/80 Code: 8480-6 BMI: 34.1 Code: 53282-9 Heart Rate 1: 68 bpm Height: 5'6" Respiratory Rate: 20 bpm Temperature: 36 .8 (C) / 98.3 (F) Weight: 208 lbs 07/05/2015 Blood Pressure 1: 114/78 Code: 8480-6 BMI: 33.9 Code: 45097-5 Heart Rate 1: 80 bpm Height: 5'6" Respiratory Rate: 20 bpm Temperature: 36 .6 (C) / 97.9 (F) Weight: 207 lbs 06/06/2015 Blood Pressure 1: 122/78 Code: 8480-6 BMI: 34.1 Code: 11268-0 Heart Rate 1: 76 bpm Height: 5'6" Respiratory Rate: 24 bpm SpO2: 96% Tempera ture: 36.4 (C) / 97.6 (F) Weight: 208 lbs 05/23/2015 Blood Pressure 1: 124/78 Code: 8480-6 Heart Rate 1: 76 bpm Respiratory Rate: 24 bpm SpO2: 93% Temperature: 36.8 (C) / 98.2 (F) We ight: 212 lbs 05/05/2015 Blood Pressure 1: 136/80 Code: 8480-6 BMI: 35.4 Code: 34658-2 Heart Rate 1: 76 bpm Height: 5'6" Respiratory Rate: 28 bpm Temperature: 37 .0 (C) / 98.6 (F) Weight: 216 lbs 03/30/2015 Blood Pressure 1: 132/86 Code: 8480-6 BMI: 35.2 Code: 21927-3 Heart Rate 1: 84 bpm Height: 5'6" Respiratory Rate: 24 bpm Temperature: 36 .7 (C) / 98.0 (F) Weight: 215 lbs 02/03/2015 Blood Pressure 1: 122/74 Code: 8480-6 BMI: 35.7 Code: 27793-7 Heart Rate 1: 84 bpm Height: 5'6" Respiratory Rate: 20 bpm Temperature: 36 .9 (C) / 98.5 (F) Weight: 218 lbs 12/29/2014 Blood Pressure 1: 132/80 Code: 8480-6 BMI: 35.1 Code: 41726-2 Heart Rate 1: 80 bpm Height: 5'6" Respiratory Rate: 20 bpm Temperature: 36 .6 (C) / 97.8 (F) Weight: 214 lbs 09/02/2014 Blood Pressure 1: 128/92 Code: 8480-6 BMI: 34.7 Code: 37797-5 Heart Rate 1: 84 bpm Height: 5'6" Respiratory Rate: 26 bpm Temperature: 36 .8 (C) / 98.2 (F) Weight: 212 lbs 08/25/2014 Blood Pressure 1: 124/80 Code: 8480-6 BMI: 34.7 Code: 60391-6 Heart Rate 1: 78 bpm Height: 5'6" Respiratory Rate: 22 bpm SpO2: 97% Tempera ture: 36.6 (C) / 97.8 (F) Weight: 212 lbs 04/01/2014 Blood Pressure 1: 142/84 Code: 8480-6 BMI: 34.4 Code: 78780-0 Heart Rate 1: 74 bpm Height: 5'5" Respiratory Rate: 20 bpm Temperature: 36 .4 (C) / 97.6 (F) Weight: 207 lbs 03/16/2014 Blood Pressure 1: 142/90 Code: 8480-6 BMI: 34.6 Code: 65985-9 Heart Rate 1: 76 bpm Height: 5'5" Respiratory Rate: 24 bpm Temperature: 36 .5 (C) / 97.7 (F) Weight: 208 lbs 03/09/2014 Blood Pressure 1: 116/70 Code: 8480-6 BMI: 35.3 Code: 60213-8 Heart Rate 1: 72 bpm Height: 5'5" [...] 1: 128/86 Code: 8480-6 BMI: 34.3 Code: 64947-2 Heart Rate 1: 84 bpm Height: 5'5" Respiratory Rate: 20 bpm Temperature: 36 .7 (C) / 98.0 (F) Weight: 206 lbs 12/23/2013 Blood Pressure 1: 122/70 Code: 8480-6 BMI: 34.3 Code: 49364-9 Heart Rate 1: 68 bpm Height: 5'5" Respiratory Rate: 20 bpm Temperature: 36 .8 (C) / 98.2 (F) Weight: 206 lbs 10/05/2013 Blood Pressure 1: 118/76 Code: 8480-6 BMI: 34.1 Code: 11164-7 Heart Rate 1: 68 bpm Height: 5'5" Respiratory Rate: 20 bpm SpO2: 98% Tempera ture: 36.6 (C) / 97.9 (F) Weight: 205 lbs 08/04/2013 Blood Pressure 1: 126/82 Code: 8480-6 BMI: 33.3 Code: 29736-5 Heart Rate 1: 76 bpm Height: 5'5" Respiratory Rate: 20 bpm Temperature: 36 .8 (C) / 98.2 (F) Weight: 200 lbs 07/03/2013 Blood Pressure 1: 124/82 Code: 8480-6 BMI: 33.3 Code: 79362-9 Heart Rate 1: 72 bpm Height: 5'5" Respiratory Rate: 22 bpm Temperature: 36 .1 (C) / 97.0 (F) Weight: 200 lbs 05/27/2013 Blood Pressure 1: 126/82 Code: 8480-6 Heart Rate 1: 74 bpm Respiratory Rate: 20 bpm Temperature: 36.0 (C) / 96.8 (F) Weight: 199 lbs 04/06/2013 Blood Pressure 1: 118/80 Code: 8480-6 BMI: 35.2 Code: 05694-5 Heart Rate 1: 80 bpm Height: 5'4" Respiratory Rate: 20 bpm Temperature: 37 .4 (C) / 99.3 (F) Weight: 205 lbs 11/10/2012 Blood Pressure 1: 128/82 Code: 8480-6 Heart Rate 1: 84 bpm Respiratory Rate: 20 bpm Temperature: 36.7 (C) / 98.0 (F) Weight: 199 lbs 09/02/2012 Blood Pressure 1: 116/82 Code: 8480-6 BMI: 34.2 Code: 21167-2 Heart Rate 1: 88 bpm Height: 5'4" Respiratory Rate: 22 bpm Temperature: 36 .6 (C) / 97.8 (F) Weight: 199 lbs 08/04/2012 Blood Pressure 1: 128/74 Code: 8480-6 BMI: 34.0 Code: 58564-3 Heart Rate 1: 92 bpm Height: 5'4" Respiratory Rate: 20 bpm Temperature: 36 .4 (C) / 97.5 (F) Weight: 198 lbs 07/21/2012 Blood Pressure 1: 124/86 Code: 8480-6 Heart Rate 1: 116 bpm Respiratory Rate: 24 bpm Temperature: 36.8 (C) / 98.2 (F) 07/02/2012 Blood Pressure 1: 116/ Code: 8480-6 BMI: 33.6 Code: 48981-7 Heart Rate 1: 76 bpm Height: 5'4" Respiratory Rate: 20 bpm Temperature: 36 .8 (C) / 98.3 (F) Weight: 196 lbs 06/24/2012 Blood Pressure 1: 124/80 Code: 8480-6 BMI: 34.3 Code: 82724-1 Heart Rate 1: 72 bpm Height: 5'4" SpO2: 96% Temperature: 36.3 (C) / 97.3 (F) Weight: 200 lbs 05/20/2012 Blood Pressure 1: 11688 Code: 8480-6 BMI: 33.8 Code: 81365-1 Heart Rate 1: 80 bpm Height: 5'4" Respiratory Rate: 22 bpm Temperature: 36 .9 (C) / 98.4 (F) Weight: 197 lbs 05/08/2012 Blood Pressure 1: 128/86 Code: 8480-6 BMI: 33.8 Code: 74365-8 Heart Rate 1: 76 bpm Height: 5'4" Respiratory Rate: 26 bpm SpO2: 95% Tempera ture: 36.1 (C) / 97.0 (F) Weight: 197 lbs 04/22/2012 Blood Pressure 1: 106/64 Code: 8480-6 BMI: 33.8 Code: 40897-3 Heart Rate 1: 70 bpm Height: 5'4" Temperature: 36.1 (C) / 97.0 (F) Weight: 197 lbs 02/13/2012 Blood Pressure 1: 126/82 Code: 8480-6 BMI: 34.7 Code: 95966-3 Heart Rate 1: 64 bpm Height: 5'4" Respiratory Rate: 20 bpm Temperature: 36 .6 (C) / 97.8 (F) Weight: 202 lbs 01/28/2012 Blood Pressure 1: 116/80 Code: 8480-6 BMI: 34.7 Code: 70072-1 Heart Rate 1: 76 bpm Height: 5'4" Respiratory Rate: 20 bpm Temperature: 36 .8 (C) / 98.3 (F) Weight: 202 lbs 12/26/2011 Blood Pressure 1: 132/82 Code: 8480-6 BMI: 36.0 Code: 25872-0 Heart Rate 1: 68 bpm Height: 5'4" Respiratory Rate: 22 bpm Temperature: 36 .7 (C) / 98.0 (F) Weight: 210 lbs 11/14/2011 Blood Pressure 1: 124/80 Code: 8480-6 BMI: 36.4 Code: 08477-9 Heart Rate 1: 76 bpm Height: 5'4" Respiratory Rate: 20 bpm Temperature: 36 .8 (C) / 98.2 (F) Weight: 212 lbs 09/12/2011 Blood Pressure 1: 108/74 Code: 8480-6 BMI: 37.1 Code: 05177-7 Heart Rate 1: 72 bpm Height: 5'4" Respiratory Rate: 20 bpm Temperature: 37 .0 (C) / 98.6 (F) Weight: 216 lbs 08/15/2011 Blood Pressure 1: 122/80 Code: 8480-6 BMI: 36.9 Code: 53323-0 Heart Rate 1: 76 bpm Height: 5'4" Respiratory Rate: 20 bpm Temperature: 36 .2 (C) / 97.1 (F) Weight: 215 lbs 08/09/2011 Blood Pressure 1: 112/78 Code: 8480-6 BMI: 36.9 Code: 66461-5 Heart Rate 1: 68 bpm Height: 5'4" Respiratory Rate: 20 bpm Temperature: 36 .7 (C) / 98.0 (F) Weight: 215 lbs 07/03/2011 Blood Pressure 1: 140/94 Code: 8480-6 BMI: 36.2 Code: 26788-8 Heart Rate 1: 68 bpm Height: 5'4" Temperature: 36.0 (C) / 96.8 (F) Weight: 211 lbs 06/04/2011 Blood Pressure 1: 124/70 Code: 8480-6 BMI: 36.7 Code: 69678-8 Heart Rate 1: 68 bpm Height: 5'4" Respiratory Rate: 20 bpm Temperature: 36 .6 (C) / 97.9 (F) Weight: 214 lbs 05/03/2011 Blood Pressure 1: 130/76 Code: 8480-6 BMI: 36.4 Code: 94912-7 Heart Rate 1: 74 bpm Height: 5'5" Temperature: 36.2 (C) / 97.2 (F) Weight: 219 lbs 04/05/2011 Blood Pressure 1: 124/86 Code: 8480-6 BMI: 35.9 Code: 98030-1 Heart Rate 1: 76 bpm Height: 5'6" Respiratory Rate: 22 bpm Temperature: 36 .3 (C) / 97.3 (F) Weight: 219 lbs 03/08/2011 Blood Pressure 1: 112/78 Code: 8480-6 BMI: 35.1 Code: 11131-6 Heart Rate 1: 80 bpm Height: 5'6" Respiratory Rate: 26 bpm Temperature: 36 .9 (C) / 98.4 (F) Weight: 214 lbs 01/24/2011 Blood Pressure 1: 110/82 Code: 8480-6 BMI: 35.6 Code: 36496-3 Heart Rate 1: 80 bpm Height: 5'6" Temperature: 36.1 (C) / 97.0 (F) Weight: 217 lbs 01/02/2011 Blood Pressure 1: 106/72 Code: 8480-6 BMI: 35.6 Code: 90051-1 Heart Rate 1: 76 bpm Height: 5'6" [...] 1: 120/74 Code: 8480-6 BMI: 35.9 Code: 14621-3 Heart Rate 1: 72 bpm Height: 5'5" Temperature: 36.3 (C) / 97.4 (F) Weight: 216 lbs 09/19/2010 Blood Pressure 1: 124/80 Code: 8480-6 BMI: 35.4 Code: 21444-3 Heart Rate 1: 76 bpm Height: 5'5" [...] 1: 122/78 Code: 8480-6 BMI: 37.4 Code: 62766-9 Heart Rate 1: 84 bpm Height: 5'5" [...] 10/30/2017 follow up 10/23/2017 Hospital fwup from [facility] Annual Checkup 09/17/2017 Wellness Physical fo [...] follow up 10/26/2015 ER visit from at [facility] for COPD Exacerbation follow up 10/05/2015 ER Visit gait abnormality 09/15/2015 Patient requesting kelly pineda paperwork to be filled out disturbances of thinking 08/24/2015 follow up 07/05/2015 4wk fwup follow up 06/06/2015 Hospital fw cough 05/23/2015 follow up 05/05/2015 dyspnea 03/30/2015 [facility] needs new orde r for O2 abdominal pain 02/03/2015 cyst 12/29/2014 vs abscess follow up 09/02/2014 [facility] fw headache 08/25/2014 facial drooping follow up 04/01/2014 ER follow up 03/16/2014 1wk fwup follow up 03/09/2014 1mo fwup and bronchi tis fwup follow up 03/03/2014 2 day follow up 03/01/2014 ER follow up 02/09/2014 Hospital [facility] gastroesophageal reflux 12/23/2013 painful urination 10/30/2013 UTI [...] ER fwup follow up 10/18/[address] Marcela sagastume w [facility], having increased allergy symptoms. Would like steroid [...] 1 month f/u follow up 12/07/2009 from care home [facility], done with PT--finished about 2wks [...] stridor[ICD10: R06.1] Diagnosis: Muscle weakness[ICD10: M62.81] Belia BRUNSON Bushra Mayda [facility] CPT-4: 37023 05/13/2019 ([id number]) OFFICE/OUTPATIENT VISIT EST Diagnosis: Stridor[ICD10: R06.1] Diagnosis: COUGH[ICD10: R05] Belia BRUNSON BushraMayda [facility] CPT-4: 04172 05/06/2019 ([id number]) OFFICE/OUTPATIENT VISIT EST Diagnosis: Stridor[ICD10: R06.1] Diagnosis: Muscle, jerky movements (uncontrolled)[ICD10: G25.5] Belia BRUNSON BushraMayda [facility] CPT-4: 17448 04/29/2019 ([id number]) OFFICE/OUTPATIENT VISIT EST Diagnosis: Upper respiratory infection[ICD10: J06.9] Diagnosis: Flank pain[ICD10: R10.9] Diagnosis: Weight gain[ICD10: R63.5] Pattie Sotomayor BELIA BushraMayda YANDEL KATINA [facility] CPT-4: 28516 04/16/2019 ([id number]) OFFICE/OUTPATIENT VISIT EST Diagnosis: Generalized pruritus[ICD10: L29.9] Belia Shi [facility] CPT-4: 33028 04/08/2019 ([id number]) OFFICE/OUTPATIENT VISIT EST Diagnosis: Acute bursitis of left shoulder[ICD10: M75.52] Diagnosis: Cervicalgia[ICD10: M54.2] Diagnosis: Chest wall pain[ICD10: R07.89] Belia BRUNSON Bushra Mayda [facility] CPT-4: 68561 01/22/2019 ([id number]) OFFICE/OUTPATIENT VISIT EST Diagnosis: Abdominal pain[ICD10: R10.9] Diagnosis: Pyelonephritis[ICD10: N12] Pattie DOMINGUEZ [employer] [facility] CPT-4: 84497 01/07/2019 ([id number]) OFFICE/OUTPATIENT VISIT EST Diagnosis: Low back pain[ICD10: M54.5] Diagnosis: Left lumbar radiculopathy[ICD10: M54.16] Diagnosis: Left flank pain[ICD10: R10.9] Diagnosis: Left lower quadrant pain[ICD10: R10.32] Diagnosis: FLU VACCINE[ICD10: Z23] Belia FREDERICK [facility] CPT-4: 85169 12/24/2018 ([id number]) OFFICE/OUTPATIENT VISIT EST Diagnosis: Migraine, unspecified, not intractable, without status migrainosus[ICD10: G43.909] Diagnosis: Fibromyalgia[ICD10: M79.7] Belia DOMINGUEZ [employer] [facility] CPT-4: 63327 11/20/2018 ([id number]) OFFICE/OUTPATIENT VISIT EST Diagnosis: Migraine, unspecified, intractable, without status migrainosus[ICD10: G43.919] Diagnosis: Acute sinusitis, unspecified[ICD10: J01.90] Pattie REID DO [facility] CPT-4: 88340 11/04/2018 ([id number]) OFFICE/OUTPATIENT VISIT EST Diagnosis: Pain in left wrist[ICD10: M25.532] Diagnosis: Other dorsalgia[ICD10: M54.89] Pattie REID [employer] [facility] CPT-4: 29977 09/08/2018 ([id number]) OFFICE/OUTPATIENT VISIT EST Diagnosis: Acute stress reaction[ICD10: F43.0] Diagnosis: Pruritus, unspecified[ICD10: L29.9] 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, 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] Belia REID [facility] CPT-4: 32873 08/20/2018 ([id number]) OFFICE/OUTPATIENT VISIT EST Diagnosis: Hypotension due to drugs[ICD10: I95.2] Diagnosis: Paroxysmal atrial fibrillation[ICD10: I48.0] Diagnosis: Localized edema[ICD10: R60.0] Belia REID DO [facility] CPT-4: 69055 06/19/2018 ([id number]) OFFICE/OUTPATIENT VISIT EST Diagnosis: Generalized hyperhidrosis[ICD10: R61] Diagnosis: Essential (primary) hypertension[ICD10: I10] Diagnosis: Supraventricular tachycardia[ICD10: I47.1] Belia REID DO [facility] CPT-4: 20906 06/09/2018 ([id number]) OFFICE/OUTPATIENT VISIT EST Diagnosis: Stridor[ICD10: R06.1] Diagnosis: Dependence on supplemental oxygen[ICD10: Z99.81] Diagnosis: Weakness[ICD10: R53.1] Diagnosis: Supraventricular tachycardia[ICD10: I47.1] Belia REID DO [facility] CPT-4: 69673 05/21/2018 ([id number]) OFFICE/OUTPATIENT VISIT EST Diagnosis: Cervical disc disorder with radiculopathy, unspecified cervical region[ICD10: M50.10] Belia REID DO [facility] CPT-4: 82028 04/16/2018 ([id number]) OFFICE/OUTPATIENT VISIT EST Diagnosis: Migraine, unspecified, intractable, without status migrainosus[ICD10: G43.919] Diagnosis: Fibromyalgia[ICD10: M79.7] Pattie DOMINGUEZ [facility] CPT-4: 65232 04/01/2018 ([id number]) NURSE/OUTPATIENT VISIT EST Diagnosis: Hematuria, unspecified[ICD10: R31.9] Diagnosis: Dysuria[ICD10: R30.0] Belia REID DO [facility] CPT-4: 51541 03/17/2018 ([id number]) OFFICE/OUTPATIENT VISIT EST Diagnosis: Erythema intertrigo[ICD10: L30.4] Diagnosis: Chronic obstructive pulmonary disease with (acute) exacerbation[ICD10: J44.1] Diagnosis: Type 2 diabetes mellitus with hyperglycemia[ICD10: E11.65] Belia REID DO [facility] CPT-4: 89216 03/06/2018 ([id number]) OFFICE/OUTPATIENT VISIT EST Diagnosis: Cervicalgia[ICD10: M54.2] Pattie AMBRIZ [facility] CPT-4: 30416 02/05/2018 ([id number]) OFFICE/OUTPATIENT VISIT EST Diagnosis: Candidiasis of skin and nail[ICD10: B37.2] Diagnosis: Cervicalgia[ICD10: M54.2] Pattie AMBRIZ [facility] CPT-4: 98736 01/20/2018 ([id number]) OFFICE/OUTPATIENT VISIT EST Diagnosis: Pain in thoracic spine[ICD10: M54.6] Diagnosis: Radiculopathy, thoracic region[ICD10: M54.14] Belia REID [facility] CPT-4: 18862 12/25/2017 ([id number]) OFFICE/OUTPATIENT VISIT EST Diagnosis: Pain in thoracic spine[ICD10: M54.6] Diagnosis: Other muscle spasm[ICD10: M62.838] Diagnosis: FLU VACCINE[ICD10: Z23] Diagnosis: PNEUMOCOCCAL VACCINE[ICD10: Z23] Belia REID [facility] CPT-4: 96262 12/17/2017 ([id number]) OFFICE/OUTPATIENT VISIT EST Diagnosis: Chronic obstructive pulmonary disease with (acute) exacerbation[ICD10: J44.1] Belia REID [facility] CPT- 4: 58791 10/30/2017 ([id number]) OFFICE/OUTPATIENT VISIT EST Diagnosis: Chronic obstructive pulmonary disease with acute lower respiratory infection[ICD10: J44.0] Diagnosis: Mild intermittent asthma with (acute) exacerbation[ICD10: J45.21] Belia REID [facility] CPT-4: 11692 10/23/2017 ([id number]) NURSE/OUTPATIENT VISIT EST Diagnosis: Migraine, unspecified, not intractable, without status migrainosus[ICD10: G43.909] Belia REID [facility] CPT - 4: 17004 08/26/2017 ([id number]) OFFICE/OUTPATIENT VISIT EST Diagnosis: Urinary tract infection, site not specified[ICD10: N39.0] Diagnosis: Encounter for screening for osteoporosis[ICD10: Z13.820] Diagnosis: Encounter for screening mammogram for malignant neoplasm of breast[ICD10: Z12.31] Diagnosis: Acute bronchitis, unspecified[ICD10: J20.9] Pattie REID DO [facility] CPT-4: 72244 07/19/2017 ([id number]) OFFICE/OUTPATIENT VISIT EST Diagnosis: Rash and other nonspecific skin eruption[ICD10: R21] Pattie REID DO [facility] CPT-4: 59107 05/29/2017 ([id number]) OFFICE/OUTPATIENT VISIT EST Diagnosis: Diarrhea, unspecified[ICD10: R19.7] Diagnosis: Tinea corporis[ICD10: B35.4] Diagnosis: Tinea cruris[ICD10: B35.6] Diagnosis: Migraine, unspecified, not intractable, without status migrainosus[ICD10: G43.909] Belia REID [employer] [facility] CPT - 4: 11696 05/07/2017 ([id number]) OFFICE/OUTPATIENT VISIT EST Diagnosis: Stridor[ICD10: R06.1] Diagnosis: Chronic obstructive pulmonary disease with (acute) exacerbation[ICD10: J44.1] Belia REID DO [facility] CPT- 4: 80536 03/18/2017 ([id number]) OFFICE/OUTPATIENT VISIT EST Diagnosis: Type 2 diabetes mellitus with hyperglycemia[ICD10: E11.65] Belia REID DO [facility] CPT-4: 71430 02/27/2017 OFFICE/OUTPATIENT VISIT EST Diagnosis: Type 2 diabetes mellitus with hyperglycemia[ICD10: E11.65] Pattie REID DO [facility] CPT-4: 04941 02/22/2017 ([id number]) OFFICE/OUTPATIENT VISIT EST Diagnosis: Urinary tract infection, site not specified[ICD10: N39.0] Diagnosis: Pneumonia, unspecified organism[ICD10: J18.9] Diagnosis: Type 2 diabetes mellitus with hyperglycemia[ICD10: E11.65] Belia REID DO [facility] CPT-4: 25701 01/23/2017 ([id number]) OFFICE/OUTPATIENT VISIT EST Diagnosis: Type 2 diabetes mellitus with hyperglycemia[ICD10: E11.65] Diagnosis: Localized edema[ICD10: R60.0] Diagnosis: PNEUMOCOCCAL VACCINE[ICD10: Z23] Diagnosis: FLU VACCINE[ICD10: Z23] Belia FREDERICK [facility] CPT-4: 07903 12/20/2016 OFFICE/OUTPATIENT VISIT EST Diagnosis: Pain in thoracic spine[ICD10: M54.6] Diagnosis: Low back pain[ICD10: M54.5] Diagnosis: Cervicalgia[ICD10: M54.2] Diagnosis: Cough[ICD10: R05] Celeste Ferreira BELIA REID [facility] CPT-4: 86038 10/08/2016 ([id number]) OFFICE/OUTPATIENT VISIT EST Diagnosis: Primary insomnia[ICD10: F51.01] Diagnosis: Migraine, unspecified, not intractable, without status migrainosus[ICD10: G43.909] Diagnosis: Type 2 diabetes mellitus with hyperglycemia[ICD10: E11.65] Belia REID DO [facility] CPT-4: 33092 09/19/2016 ([id number]) OFFICE/OUTPATIENT VISIT EST Diagnosis: Migraine, unspecified, not intractable, without status migrainosus[ICD10: G43.909] Diagnosis: Generalized abdominal pain[ICD10: R10.84] Diagnosis: Cough[ICD10: R05] Belia REID DO [facility] CPT-4: 90889 08/20/2016 ([id number]) OFFICE/OUTPATIENT VISIT EST Diagnosis: Chronic obstructive pulmonary disease, unspecified[ICD10: J44.9] Diagnosis: Stridor[ICD10: R06.1] Belia REID DO [facility] CPT-4: 36777 06/19/2016 ([id number]) OFFICE/OUTPATIENT VISIT EST Diagnosis: Chronic obstructive pulmonary disease, unspecified[ICD10: J44.9] Diagnosis: Personal history of urinary (tract) infections[ICD10: Z87.440] Belia REID [facility] CPT-4: 25647 06/04/2016 ([id number]) OFFICE/OUTPATIENT VISIT EST Diagnosis: Stridor[ICD10: R06.1] Diagnosis: Chronic obstructive pulmonary disease with acute lower respiratory infection[ICD10: J44.0] Diagnosis: Other specified diseases of intestine[ICD10: K63.89] Diagnosis: Cystitis, unspecified without hematuria[ICD10: N30.90] Belia REID [facility] CPT-4: 58401 05/02/2016 ([id number]) OFFICE/OUTPATIENT VISIT EST Diagnosis: Fibromyalgia[ICD10: M79.7] Diagnosis: Urinary tract infection, site not specified[ICD10: N39.0] Belia REID [facility] CPT-4: 03649 04/03/2016 ([id number]) OFFICE/OUTPATIENT VISIT EST Diagnosis: Unspecified asthma, uncomplicated[ICD10: J45.909] Diagnosis: Cough[ICD10: R05] LidiaClarita REID [facility] T-4: 00163 02/29/2016 ([id number]) OFFICE/OUTPATIENT VISIT EST Diagnosis: Migraine, unspecified, intractable, without status migrainosus[ICD10: G43.919] Diagnosis: Urinary tract infection, site not specified[ICD10: N39.0] Belia REID [facility] CPT-4: 28156 02/02/2016 ([id number]) OFFICE/OUTPATIENT VISIT EST Diagnosis: Urinary tract infection, site not specified[ICD10: N39.0] Diagnosis: Unspecified abdominal pain[ICD10: R10.9] Diagnosis: Pain in thoracic spine[ICD10: M54.6] Diagnosis: Type 2 diabetes mellitus with diabetic neuropathic arthropathy[ICD10: E11.610] Belia REID [facility] CPT-4: 50074 12/05/2015 ([id number]) OFFICE/OUTPATIENT VISIT EST Diagnosis: Chronic obstructive pulmonary disease with (acute) exacerbation[ICD10: J44.1] Diagnosis: Migraine, unspecified, not intractable, without status migrainosus[ICD10: G43.909] Lidia CORNELLLINE Yuridia REID DO [facility] CPT -4: 56223 10/26/2015 ([id number]) OFFICE/OUTPATIENT VISIT EST Diagnosis: Hematuria, unspecified[ICD10: R31.9] Diagnosis: Urinary tract infection, site not specified[ICD10: N39.0] Lidia HSUQUELINE Yuridia REID DO [facility] CPT-4: 72881 10/05/2015 OFFICE/OUTPATIENT VISIT EST Diagnosis: Chronic obstructive pulmonary disease, unspecified[ICD10: J44.9] Diagnosis: Muscle weakness (generalized)[ICD10: M62.81] Diagnosis: Polyneuropathy, unspecified[ICD10: G62.9] Diagnosis: Other intervertebral disc degeneration, 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] Diagnosis: Fibromyalgia[ICD10: M79.7] Belia Franklin HSUQUELINE Yuridia DOMINGUEZ [facility] CPT-4: 31113 09/15/2015 ([id number]) OFFICE/OUTPATIENT VISIT EST Diagnosis: Disorientation, unspecified[ICD10: R41.0] Diagnosis: Headache[ICD10: R51] Diagnosis: Paresthesia of skin[ICD10: R20.2] Lidia Hwang KOFFI Paredes Yuridia REID [facility] CPT-4: 01678 08/24/2015 ([id number]) OFFICE/OUTPATIENT VISIT EST Diagnosis: Type 2 diabetes mellitus with hyperglycemia[ICD10: E11.65] Diagnosis: Chronic obstructive pulmonary disease with acute lower respiratory infection[ICD10: J44.0] Belia Yandelisabellaannie HSUBELIA BushraMayda FRANKLIN [facility] CPT-4: 15941 07/05/2015 ([id number]) OFFICE/OUTPATIENT VISIT EST Diagnosis: Mild intermittent asthma with (acute) exacerbation[ICD10: J45.21] Diagnosis: Chronic obstructive pulmonary disease, unspecified[ICD10: J44.9] Belia Yandelisabellaannie HSUBELIA BushraMayda [facility]LIN [facility] CPT-4: 06556 06/06/2015 ([id number]) OFFICE/OUTPATIENT VISIT EST Diagnosis: Chronic obstructive pulmonary disease with (acute) exacerbation[ICD10: J44.1] Lidia Hwang BELIA BushraMayda [facility] CPT- 4: 47739 05/23/2015 ([id number]) OFFICE/OUTPATIENT VISIT EST Diagnosis: Type 2 diabetes mellitus with hyperglycemia[ICD10: E11.65] Diagnosis: Functional dyspepsia[ICD10: K30] [facility]: 67913 05/05/2015 ([id number]) OFFICE/OUTPATIENT VISIT EST Diagnosis: Type 2 diabetes mellitus with hyperglycemia[ICD10: E11.65] Diagnosis: Glycosuria[ICD10: R81] Diagnosis: Urinary tract infection, site not specified[ICD10: N39.0] [facility] CPT-[facility]: 22594 03/30/2015 ([id number]) OFFICE/OUTPATIENT VISIT EST Diagnosis: Generalized abdominal pain[ICD10: R10.84] Diagnosis: Diarrhea, unspecified[ICD10: R19.7] Diagnosis: Urinary tract infection, site not specified[ICD10: N39.0] Diagnosis: Gastro-esophageal reflux disease without esophagitis[ICD10: K21.9] [facility] CPT-[facility]: 00516 02/03/2015 ([id number]) OFFICE/OUTPATIENT VISIT EST Diagnosis: Other specified noninflammatory disorders of vagina[ICD10: N89.8] Diagnosis: Follicular disorder, unspecified[ICD10: L73.9] Diagnosis: Functional dyspepsia[ICD10: K30] Diagnosis: FLU VACCINE[ICD10: Z23] Belia [facility] CPT-4: 38276 12/29/2014 ([id number]) OFFICE/OUTPATIENT VISIT EST 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] Diagnosis: RESTLESS LEGS SYNDROME[ICD9: 333.94] Diagnosis: MIGRAINE NOS/NOT INTRCBL[ICD9: 346.90] [facility] CPT-4: 29855 09/02/2014 ([id number]) OFFICE/OUTPATIENT VISIT EST Diagnosis: Cervical radiculopathy[ICD9: 723.4] Diagnosis: Cervicalgia[ICD9: 723.1] Diagnosis: Degenerative disc disease, cervical[ICD9: 722.4] 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I[ICD9: 250.00] Belia REID [facility] CPT-4: 95336 04/01/2014 OFFICE/OUTPATIENT VISIT EST Diagnosis: Reactive airway disease[ICD9: 493.90] Belia REID DO [facility] CPT-4: 95889 03/16/2014 ([id number]) OFFICE/OUTPATIENT VISIT EST Diagnosis: BRONCHITIS, ACUTE[ICD9: 466.0] Diagnosis: Reactive airway disease[ICD9: 493.90] Belia REID [facility] CPT-4: 79298 03/09/2014 OFFICE/OUTPATIENT VISIT EST Diagnosis: BRONCHITIS, ACUTE[ICD9: 466.0] Diagnosis: WHEEZING[ICD9: 786.07] Huong Peguero [facility] CPT-4: 73286 03/03/2014 OFFICE/OUTPATIENT VISIT EST Diagnosis: BRONCHITIS, ACUTE[ICD9: 466.0] Diagnosis: WHEEZING[ICD9: 786.07] Huong Peguero [facility] CPT-4: 95737 03/01/2014 ([id number]) OFFICE/OUTPATIENT VISIT EST Diagnosis: GERD[ICD9: 530.81] Diagnosis: ARTHRALGIA-MULTIPLE SITES[ICD9: 719.49] Diagnosis: LUMB/LUMBOSAC DISC DEGEN[ICD9: 722.52] Diagnosis: - I - FIBROMYALGIA[ICD9: 729.1] Belia REID [facility] CPT-4: 48105 02/09/2014 ([id number]) OFFICE/OUTPATIENT VISIT EST Diagnosis: Peptic ulcer disease[ICD9: 533.90] Diagnosis: RESTLESS LEGS SYNDROME[ICD9: 333.94] Diagnosis: Neuropathy[ICD9: 355.9] Belia CORNELLLINE Yuridia [facility] CPT-4: 16881 12/23/2013 ([id number]) OFFICE/OUTPATIENT VISIT EST Diagnosis: URINARY TRACT INFECTION[ICD9: 599.0] Belia CORNELL CLAYTON Yuridia REID [facility] CPT-4: 06759 10/30/2013 ([id number]) OFFICE/OUTPATIENT VISIT EST Diagnosis: Flank pain[ICD9: 789.00] Belia Reid BELIA BushraMayda [facility] CPT-4: 61593 10/21/2013 ([id number]) OFFICE/OUTPATIENT VISIT EST Diagnosis: INFLAMED SEBORR KERATOS[ICD9: 702.11] Diagnosis: Brachioradial pruritus[ICD9: 698.9] Diagnosis: ASTHMA NOS[ICD9: 493.90] Belia Yandelisabellaannie BELIA BushraMayda [facility] CPT-4: 33566 10/05/2013 ([id number]) OFFICE/OUTPATIENT VISIT EST Diagnosis: HYPERTENSION[ICD9: 401.9] Diagnosis: - I - FIBROMYALGIA[ICD9: 729.1] Diagnosis: DIZZINESS/VERTIGO[ICD9: 780.4] Diagnosis: MIGRAINE NOS/NOT INTRCBL[ICD9: 346.90] Diagnosis: Diabetic peripheral neuropathy[ICD9: 250.60] Diagnosis: Flank pain[ICD9: 789.00] Belia BRUNSON BushraMayda [facility] CPT-4: 29298 08/04/2013 ([id number]) OFFICE/OUTPATIENT VISIT EST Diagnosis: ALLERGIC RHINITIS[ICD9: 477.9] Belia Yandelisabellaannie BELIA Bushra Mayda [facility] CPT-4: 48121 07/13/2013 OFFICE/OUTPATIENT VISIT EST Diagnosis: URINARY TRACT INFECTION[ICD9: 599.0] Huong ARNOLD BushraMayda [facility] CPT-4: 01411 07/03/2013 OFFICE/OUTPATIENT VISIT EST Diagnosis: HYPERTENSION[ICD9: 401.9] Diagnosis: URINARY TRACT INFECTION[ICD9: 599.0] Diagnosis: BACKACHE[ICD9: 724.5] Diagnosis: URINARY INCONTINENCE[ICD9: 788.30] [facility]: 85335 05/27/2013 ([id number]) OFFICE/OUTPATIENT VISIT EST Diagnosis: Flank pain[ICD9: 789.00] Belia BRUNSON BushraMayda [facility] CPT-4: 58908 05/25/2013 ([id number]) OFFICE/OUTPATIENT VISIT EST Diagnosis: B-COMPLEX DEFIC NEC[ICD9: 266.2] Belia REID [facility] CPT-4: 02107 05/04/2013 ([id number]) OFFICE/OUTPATIENT VISIT EST Diagnosis: ALLERGIC RHINITIS[ICD9: 477.9] Diagnosis: Vitamin B12 deficiency[ICD9: 266.2] Belia REID [facility] CPT-4: 32764 04/17/2013 ([id number]) OFFICE/OUTPATIENT VISIT EST 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I[ICD9: 250.00] Diagnosis: URINARY TRACT INFECTION[ICD9: 599.0] Diagnosis: DIZZINESS/VERTIGO[ICD9: 780.4] Diagnosis: DIARRHEA[ICD9: 787.91] Belia Peguero [facility] CPT-4: 72162 04/06/2013 ([id number]) OFFICE/OUTPATIENT VISIT EST Diagnosis: URINARY TRACT INFECTION[ICD9: 599.0] Diagnosis: URINARY RETENTION[ICD9: 788.20] Belia REID [facility] CPT-4: 22525 11/10/2012 ([id number]) OFFICE/OUTPATIENT VISIT EST Diagnosis: TACHYCARDIA[ICD9: 785.0] Diagnosis: SYNCOPE AND COLLAPSE[ICD9: 780.2] Diagnosis: CONSCIOUSNS ALTERAT NEC[ICD9: 780.09] Belia REID [facility] CPT-4: 41800 09/02/2012 OFFICE/OUTPATIENT VISIT EST Diagnosis: TACHYCARDIA[ICD9: 785.0] Diagnosis: SYNCOPE AND COLLAPSE[ICD9: 780.2] Belia REID [facility] CPT-4: 69826 08/04/2012 ([id number]) OFFICE/OUTPATIENT VISIT EST Diagnosis: Loss of consciousness[ICD9: 780.09] Diagnosis: Tachycardia[ICD9: 785.0] Diagnosis: MALAISE AND FATIGUE[ICD9: 780.79] Belia REID [facility] CPT-4: 11781 07/21/2012 ([id number]) OFFICE/OUTPATIENT VISIT EST Diagnosis: BRONCHITIS, ACUTE[ICD9: 466.0] Diagnosis: ASTHMA NOS[ICD9: 493.90] Belia POOLE [facility] CPT-4: 97494 07/02/2012 ([id number]) OFFICE/OUTPATIENT VISIT EST Diagnosis: CEPHALGIA[ICD9: 784.0] Belia Peguero [facility] CPT-4: 90303 06/25/2012 ([id number]) OFFICE/OUTPATIENT VISIT EST Diagnosis: GERD[ICD9: 530.81] Diagnosis: DIARRHEA[ICD9: 787.91] Diagnosis: URINARY TRACT INFECTION[ICD9: 599.0] Diagnosis: ASTHMA NOS[ICD9: 493.90] Diagnosis: ALLERGIC RHINITIS[ICD9: 477.9] Belia REID [facility] CPT-4: 30855 06/24/2012 ([id number]) OFFICE/OUTPATIENT VISIT EST Diagnosis: MIGRAINE NOS/NOT INTRCBL[ICD9: 346.90] Diagnosis: TREMOR NEC[ICD9: 333.1] Diagnosis: CHRONIC PAIN SYNDROME[ICD9: 338.4] Belia REID [facility] CPT-4: 66057 05/20/2012 ([id number]) OFFICE/OUTPATIENT VISIT EST Diagnosis: DIZZINESS/VERTIGO[ICD9: 780.4] Diagnosis: PALPITATIONS[ICD9: 785.1] Diagnosis: TREMOR NEC[ICD9: 333.1] Diagnosis: ANXIETY STATE NOS[ICD9: 300.00] Diagnosis: POSTTRAUMATIC STRESS DISORDER[ICD9: 309.81] Belia REID [facility] CPT-4: 30973 05/08/2012 ([id number]) OFFICE/OUTPATIENT VISIT EST Diagnosis: MIGRAINE NOS/NOT INTRCBL[ICD9: 346.90] Diagnosis: FIBROMYALGIA[ICD9: 729.1] Diagnosis: SYNCOPE AND COLLAPSE[ICD9: 780.2] Diagnosis: Diabetic peripheral neuropathy[ICD9: 250.60] Belia REID [facility] CPT-4: 35993 04/22/2012 OFFICE/OUTPATIENT VISIT EST Diagnosis: ROTATOR CUFF DIS NEC[ICD9: 726.19] Diagnosis: JOINT PAIN-SHLDER[ICD9: 719.41] Diagnosis: DYSPEPSIA[ICD9: 536.8] Belia Peguero [employer] [facility] CPT-4: 85244 02/13/2012 ([id number]) OFFICE/OUTPATIENT VISIT EST Diagnosis: MIGRAINE NOS/NOT INTRCBL[ICD9: 346.90] Diagnosis: GERD[ICD9: 530.81] Diagnosis: DYSPEPSIA[ICD9: 536.8] Belia Peguero [employer] [facility] CPT-4: 12203 01/28/2012 OFFICE/OUTPATIENT VISIT EST Diagnosis: CEPHALGIA[ICD9: 784.0] Diagnosis: MIGRAINE NOS/NOT INTRCBL[ICD9: 346.90] Diagnosis: GERD[ICD9: 530.81] Diagnosis: INSOMNIA NOS[ICD9: 780.52] Belia DOMINGUEZ [employer] [facility] CPT-4: 92635 12/26/2011 ([id number]) OFFICE/OUTPATIENT VISIT EST Diagnosis: CEPHALGIA[ICD9: 784.0] Diagnosis: MIGRAINE NOS/NOT INTRCBL[ICD9: 346.90] Diagnosis: MALAISE AND FATIGUE[ICD9: 780.79] Diagnosis: FIBROMYALGIA[ICD9: 729.1] Diagnosis: ALLERGIC RHINITIS[ICD9: 477.9] Belia REID [facility] CPT-4: 98352 11/14/2011 ([id number]) OFFICE/OUTPATIENT VISIT EST Diagnosis: MALAISE AND FATIGUE[ICD9: 780.79] Diagnosis: MUSCLE WEAKNESS-GENERAL[ICD9: 728.87] Diagnosis: MIGRAINE NOS/NOT INTRCBL[ICD9: 346.90] Diagnosis: JOINT PAIN-SHLDER[ICD9: 719.41] Belia REID [employer] [facility] CPT-4: 26236 09/12/2011 ([id number]) OFFICE/OUTPATIENT VISIT EST Diagnosis: CONCUSSION[ICD9: 850.9] Diagnosis: Ataxia[ICD9: 781.3] Diagnosis: DIZZINESS/VERTIGO[ICD9: 780.4] Belai REID [facility] CPT-4: 78820 08/15/2011 ([id number]) OFFICE/OUTPATIENT VISIT EST Diagnosis: THROMBOPHLEBITIS[ICD9: 451.9] Diagnosis: Subacromial bursitis[ICD9: 726.19] Diagnosis: ALLERGIC RHINITIS[ICD9: 477.9] Diagnosis: Lipoma[ICD9: 214.9] Belia REID [facility] CPT-4: 46585 08/09/2011 ([id number]) OFFICE/OUTPATIENT VISIT EST Diagnosis: THROMBOPHLEBITIS[ICD9: 451.9] Diagnosis: Arm pain[ICD9: 729.5] Diagnosis: Clostridium difficile colitis[ICD9: 008.45] Diagnosis: URINARY TRACT INFECTION[ICD9: 599.0] Belia Shi [facility] CPT-4: 30391 07/03/2011 ([id number]) OFFICE/OUTPATIENT VISIT EST Diagnosis: ARTHRALGIA-MULTIPLE SITES[ICD9: 719.49] Diagnosis: Muscle cramp[ICD9: 729.82] Diagnosis: INSOMNIA NOS[ICD9: 780.52] [facility]: 92119 06/04/2011 OFFICE/OUTPATIENT VISIT EST Diagnosis: Headache[ICD9: 784.0] Diagnosis: Allergic rhinitis[ICD9: 477.9] [facility] CPT-[facility]: 34006 05/03/2011 OFFICE/OUTPATIENT VISIT EST Diagnosis: LUMB/LUMBOSAC DISC DEGEN[ICD9: 722.52] Diagnosis: MIGRAINE NOS/NOT INTRCBL[ICD9: 346.90] Diagnosis: CHRONIC PAIN SYNDROME[ICD9: 338.4] Diagnosis: RESTLESS LEGS SYNDROME[ICD9: 333.94] Belia [facility] CPT-4: 72644 04/05/2011 OFFICE/OUTPATIENT VISIT EST Diagnosis: MIGRAINE NOS/NOT INTRCBL[ICD9: 346.90] Diagnosis: GERD[ICD9: 530.81] Belia [facility] CPT-4: 06488 03/08/2011 OFFICE/OUTPATIENT VISIT EST Diagnosis: URINARY TRACT INFECTION[ICD9: 599.0] Diagnosis: Vertigo[ICD9: 780.4] Diagnosis: GERD[ICD9: 530.81] Belia REID DO [facility] CPT-4: 05491 01/24/2011 OFFICE/OUTPATIENT VISIT EST Diagnosis: Hypotension[ICD9: 458.9] Diagnosis: Syncopal episodes[ICD9: 780.2] Diagnosis: MIGRAINE NOS/NOT INTRCBL[ICD9: 346.90] Diagnosis: MALAISE AND FATIGUE[ICD9: 780.79] Belia Yandelisabellaannie SHARMANDER DO [facility] CPT-4: 05444 01/02/2011 OFFICE/OUTPATIENT VISIT EST Diagnosis: Tinea cruris[ICD9: 110.3] Diagnosis: Intertrigo[ICD9: 695.89] Diagnosis: MIGRAINE NOS/NOT INTRCBL[ICD9: 346.90] Belia GaribayLUBNA TomlinsonMayda YANDELNDER DO [facility] CPT-4: 39815 12/07/2010 OFFICE/OUTPATIENT VISIT EST Diagnosis: PALPITATIONS[ICD9: 785.1] Diagnosis: ANXIETY STATE NOS[ICD9: 300.00] Belia Franklin SHARMANDER DO [facility] CPT-4: 99747 11/16/2010 OFFICE/OUTPATIENT VISIT EST Diagnosis: URINARY TRACT INFECTION[ICD9: 599.0] Diagnosis: MIGRAINE NOS/NOT INTRCBL[ICD9: 346.90] Iraida GaribayLUBNA SMayda SHARMANDER DO [facility] CPT-4: 73978 11/02/2010 OFFICE/OUTPATIENT VISIT EST Diagnosis: ALLERGIC RHINITIS[ICD9: 477.9] Diagnosis: ANXIETY STATE NOS[ICD9: 300.00] Belia Yandelkatina BRUNSON BushraMayda YANDELNDER DO [facility] CPT-4: 13686 10/18/2010 OFFICE/OUTPATIENT VISIT EST Belia Yandelkatina BRUNSON BushraMayda YANDEL NDER DO [facility] CPT- 4: 11273 09/19/2010 OFFICE/OUTPATIENT VISIT EST Belia Yandelisabellaannie BELIA BushraMayda YANDEL NDER DO [facility] CPT- 4: 13379 09/06/2010 ([id number]) OFFICE/OUTPATIENT VISIT EST Belia GaribayLUBNA SMayda YANDELNDER DO [facility] CPT-4: 00675 08/10/2010 ([id number]) OFFICE/OUTPATIENT VISIT EST Belia [facility] CPT-4: 60741 05/11/2010 ([id number]) OFFICE/OUTPATIENT VISIT, EST Belia [facility] CPT-4: 76892 04/06/2010 ([id number]) OFFICE/OUTPATIENT VISIT, EST Belia HSU [facility] CPT-4: 81489 02/09/2010 ([id number]) OFFICE/OUTPATIENT VISIT, EST Belia [facility] CPT-4: 71771 01/05/2010 ([id number]) OFFICE/OUTPATIENT VISIT, EST Belia [facility] CPT-4: 19927 12/07/2009 ([id number]) OFFICE/OUTPATIENT VISIT, EST Belia [facility] CPT-4: 27806 11/08/2009 ([id number]) OFFICE/OUTPATIENT VISIT, EST Belia [facility] CPT-4: 97169 10/24/2009 ([id number]) OFFICE/OUTPATIENT VISIT, EST Belia [facility] CPT-4: 50645 07/25/2009 ([id number]) OFFICE/OUTPATIENT VISIT, RIOS [facility] CPT-4: 18868 05/26/2009 Plan of Care Planned Activity Notes Codes Status Date Visit Diagnosis Plan: Chronic obstructive pulmonary di sease, unspecified Discussion: Recommend pulmonary rehab Patient states she never went to pulmonary rehab due to cost as well as transportation issues Finish trelagy Stop singulair Decrease hydroxyzine to 25mg po q HS Fwup [address] scan of Chest results discussed ICD-9 : 496 ICD-10 : J44.9 05/13/2019 Visit Diagnosis Plan: COUGH Discussion: Check CT scan of chest ICD-9 : 786.2 ICD-10 : R05 05/06/2019 Visit Diagnosis Plan: Stridor Discussion: Add Trelagy 1 p daily Add Singulair May need to see new math tutor ICD-9 : 786.1 ICD-10 : R06.1 05/06/2019 Appointment: Belia Reid WPtel: [address] [place], [place] [address] FOLLOW UP 05/06/2019 Patient Education: Singulair- [employer] Coupon [id number] https://www.Net[employer]/sampleTiny Post/resources/getResource/61/3334905t-[email or web address]-78y9-le Completed 05/06/2019 Care Plan: CT THORAX W/O DYE LOINC : 473 66-0 Pending 05/06/2019 Appointment: Belia Reid WPtel: [address] [place] [address] US RESCHEDULED 04/30/2019 Visit Diagnosis Plan: Muscle, [...] : R06.1 04/29/2019 Appointment: Belia Reid WPtel: [address] [place] [address] Hospital Follow Up 04/29/2019 Patient Education: Valium- [employer] Coupon [id number] https://www.Netpulse/samplemd/resources/getResource/61/[email or web address] Completed 04/29/2019 Visit Diagnosis Plan: Weight gain [...] ICD-10 : R10.9 04/16/2019 Appointment: Pattie Sotomayor [address] [place] [address] ACUTE ILLNESS 04/16/2019 Patient Education: cyclobenzaprine- [employer] Coupon [id number] https://www.Netpulse/Lorena Gaxiola/resources/getResource/61/[email or web address]-m9 Completed 04/16/2019 Visit Diagnosis Plan: Generalized pruritus Discussion: Hydroxyzine 25mg po TID for itching and anxiety ICD-9 : 698.9 ICD-10 : L29.9 04/08/2019 Visit Diagnosis Plan: Migraine, unspecif ied, not intractable, without status migrainosus Discussion: Increase gabapentin to 600mg po BID ICD-9 : 346.90 ICD-10 : G43.909 04/08/2019 Appointment: Belia Reid WPtel: [address] [place] [address] ACUTE ILLNESS 04/08/2019 Visit Diagnosis Plan: Cervicalgia [...] : M75.52 01/22/2019 Appointment: Belia Reid WPtel: [address] [place] [address] Hospital Follow Up 01/22/2019 Visit Diagnosis Plan: Abdominal pain Discussion: urine culture sent to assess for any infection. rocephin given in office to cover for pyelonephritis. instructed to push fluids. call office with any new or worsening symptoms. ICD-9 : 789.00 ICD-10 : R10.9 01/07/2019 Appointment: Pattie Sotomayor [address] [place] [address] ACUTE ILLNESS 01/07/2019 Visit Diagnosis Plan: Low back pain Discussion: Stat C T of abdomen/pelvis now ICD-9 : 724.2 ICD-10 : M54.5 12/24/2018 Appointment: Belia Reid WPtel: [address] [place], [place] [address] FOLLOW UP 12/24/2018 Visit Diagnosis Plan: Fibromyalgia [...] : G43.909 11/20/2018 Appointment: Belia Reid WPtel: [address] [place] [address] ACUTE ILLNESS 11/20/2018 Patient Education: baclofen- [employer] Coupon [id number] https://www.Lorena Gaxiola.[employer]/samplemd/resources/getResource/61/[email or web address]-[email or web address] Completed 11/20/2018 Visit Diagnosis Plan: Migraine, unspecif ied, intractable, without status migrainosus Discussion: toradol/phenergan given in o ffice (60 mg toradol, 12.5 mg phenergan). instructed to call if no improvement or worsening. instructed to follow up with glue machine operator since headaches are occurring more frequently to make sure vision is not the cause. ICD-9 : 346.91 ICD-10 : G43.919 11/04/2018 Visit Diagnosis Plan: Acute sinusitis, unspecified Dis cussion: zithromax prescribed to cover for sinus infection due to length of symptoms and clinincal s/s. ICD-9 : 461.9 ICD-10 : J01.90 11/04/2018 Appointment: Pattie Sotomayor [address] [place], [place] [address] ACUTE ILLNESS 11/04/2018 Appointment: Bel[facility]el[facility] [phone] [id number] [place] CANCELED 09/24/2018 Visit Diagnosis Plan: Type 2 diabetes me llitus with diabetic neuropathy, unspecified Discussion: Retry gabapentin 300mg po q HS ICD-9 : 250.60 ICD-10 : E11.40 09/18/2018 Visit Diagnosis Plan: Vitamin D deficiency, unspecifie d Discussion: Increase Vitamin D3 to 10,000 u daily ICD-9 : 268.9 ICD-10 : E55.9 09/18/2018 Visit Diagnosis Plan: Encounter for [facility] adult medical examination without abnormal findings [...] I10 09/18/2018 Appointment: Bel[facility] Reid [facility]el[facility] [phone] [id number] Annual Well Visit 09/18/2018 Patient Education: gabapentin- [employer] Coupon [id number] https://www.Lorena Gaxiola.[employer]/samplemd/resources/getResource/61/[email or web address]-[email or web address] Completed 09/18/2018 Visit Diagnosis Plan: Pain in [...] ICD-10 : M54.89 09/08/2018 Appointment: Pattie Sotomayor [address] [place], [place] [id number] ACUTE ILLNESS 09/08/2018 Patient Education: prednisone- [employer] Coupon [id number] https://www.Lorena Gaxiola.com/samplemd/resources/getResource/61/[email or web address]-2698-89d7-ps Completed 09/08/2018 Visit Diagnosis Plan: Acute stress [...] : L29.9 08/20/2018 Appointment: Belia Reid WPtel: [address] [place] [address] ACUTE ILLNESS 08/20/2018 Patient Education: Lexapro- [employer] C[employer]on [id number] Completed 08/20/2018 Patient Education: hydroxyzine HCl- [employer] C[employer]on [id number] Completed 08/20/2018 Care Plan: MAMMOGRAM SCREENING LOINC : 2 6347-5 Pending 08/20/2018 Visit Diagnosis Plan: Paroxysmal atrial fibrillation D iscussion: Discuss eliquis need with cardiology at [facility] due to cost ICD-9 : 427.31 ICD-10 : I48.0 06/19/2018 Visit Diagnosis Plan: Hypotension due to drugs Discuss ion: Discussed decreasing cardizem dose due to low BP and edema but sees cardiology next week Follow Up: 1 months ICD-9 : 458.8 ICD-10 : I95.2 06/19/2018 Appointment: Belia Reid WPtel: [facility] [place] [id number] FOLLOW UP 06/19/2018 Visit Diagnosis Plan: Essential [...] : 780.8 ICD-10 : R61 06/09/2018 Appointment: eBlia Reid WPtel: [address] [place], [place] [phone] FOLLOW UP 06/09/2018 Care Plan: CHEST X-RAY 2VW FRONTAL&LATL LOINC : 14406-0 Pending 05/26/2018 Visit Diagnosis Plan: Stridor Discussion: [...] : I47.1 05/21/2018 Appointment: Belia Reid WPtel: [address] [place], [place] [phone] Hospital Follow Up 05/21/2018 Visit Diagnosis Plan: Cervical disc diso rder with radiculopathy, unspecified cervical region Discussion: Scheduled for surgery on 06/02 10/[address] Faulkner ICD-9 : 722.0 ICD-10 : M50.10 04/16/2018 Appointment: Belia Reid WPtel: [address] [place], [place] [phone] [facility] Follow Up 04/16/2018 Visit Diagnosis Plan: [...] ICD-10 : M79.7 04/01/2018 Appointment: Pattie Sotomayor [address] [place] [address] ACUTE ILLNESS 04/01/2018 Appointment: Belia Reid WPtel: [facility] 03/17/2018 Visit Diagnosis Plan: Erythema intertrigo Discussio: [...] : J44.1 03/06/2018 Appointment: Belia Reid WPtel: [address] [place] [address] Hospital Follow Up 03/06/2018 Visit Diagnosis Plan: Cervicalgia Discussion: spoke wi th dr. reid about patient. increased gabapentin to bid and started on celebrex bid. tramadrol rx written out to take prn. keep scheduled appt next week for myelogram. ICD-9 : 723.1 ICD-10 : M54.2 02/05/2018 Appointment: Pattie Sotomayor [address] [place] [address] ACUTE ILLNESS 02/05/2018 Care Plan: X-RAY EXAM NECK SPINE 4/5VWS cervical LOINC : 60809-7 Pending 01/21/2018 Visit Diagnosis Plan: Candidiasis of [...] ICD-10 : M54.2 01/20/2018 Appointment: Pattie Sotomayor [address] [place], [place] [id number] ACUTE ILLNESS 01/20/2018 Visit Diagnosis Plan: Pain in thoracic spine Discussio n: Proceed with CT scan of thoracic spine Will likely need PT ICD-9 : 724.1 ICD-10 : M54.6 12/25/2017 Appointment: Belia Reid WPtel: [address] [place], [place] [phone] FOLLOW UP 12/25/2017 Care Plan: CT THORAX W/O DYE LOINC : 473 66-0 Pending 12/25/2017 Visit Diagnosis Plan: Pain in thoracic spine Discussio n: Stretches Alternated heat/ice Topical aspercreme with lidocaine Flexeril Recheck 1 week Flu and Pneumovax given ICD-9 : 724.1 ICD-10 : M54.6 12/17/2017 Appointment: Belia Reid WPtel: [address] [place], [place] [phone] ACUTE ILLNESS 12/17/2017 Patient Education: [...] : J44.1 10/30/2017 Appointment: Belia Reid WPtel: [address] [place], [place] [phone] FOLLOW UP 10/30/2017 Patient Education: Patient Medication Summary Completed 10/30/2017 Visit Diagnosis Plan: Chronic obstructiv e pulmonary disease with acute lower respiratory infection Discussion: Continue SVNs with albuterol q4hrs Add Trelagy 1 inhalation daily Finish steroids Increase water intake Follow Up: 1 weeks ICD-9 : 496 ICD-10 : J44.0 10/23/2017 Appointment: Belia Reidtel: [address] [place], [place] [phone] [place] WORK IN 10/23/2017 Patient Education: Patient Medication Summary Completed 10/23/2017 Appointment: Belia Reidtel: [address] [place], [place] [phone] NO SHOW 10/16/2017 Visit Diagnosis Plan: Confusional [...] ICD-10 : E11.65 09/17/2017 Appointment: Belia Reidtel: [address] [place], [place] [phone] Annual Well Visit 09/17/2017 Patient Education: Patient Medication Summary Completed 09/17/2017 Appointment: Belia Reid WPtel: [address] [place], [place] [phone] [place] INJECTION 08/26/2017 Patient Education: Patient Medication Summary Completed 08/26/2017 Appointment: Belia Reidtel: [address] [place], [place] [phone] [place] CANCELED 07/31/2017 Visit Diagnosis Plan: Encounter [...] : J20.9 07/19/2017 Appointment: Pattie Sotomayor [address] [place] [id number] ACUTE ILLNESS 07/19/2017 Patient Education: Patient Medication Summary Completed 07/19/2017 Care Plan: MAMMOGRAM SCREENING LOINC : 2 6347-5 Pending 07/19/2017 Patient Education: Patient Medication Summary Completed 06/05/2017 Care Plan: LIPID PANEL LOINC : 69382-7 Pending 06/05/2017 Care Plan: A1C HPLC LOINC : 84740-5 Pending 06/05/2017 Visit Diagnosis Plan: Rash and [...] : R21 05/29/2017 Appointment: Pattie Sotomayor [address] [employer] [id number] FOLLOW UP 05/29/2017 Patient Education: Patient Medication Summary Completed 05/29/2017 Visit Diagnosis Plan: Diarrhea, unspecified Discussion : Diflucan Cholestyramine Recheck 2weeks ICD-9 : 787.91 ICD-10 : R19.7 05/07/2017 Visit Diagnosis Plan: Tinea corporis Discussion: Diflu can and topical nystatin Follow Up: 2 weeks ICD-9 : 110.5 ICD-10 : B35.4 05/07/2017 Appointment: Belia Reid WPtel: [address] [place], [place] [phone] [place] FOLLOW UP 05/07/2017 Patient Education: Patient Medication Summary Completed 05/07/2017 Appointment: Belia Reid WPtel: [address] [place] [address] US RESCHEDULED 04/30/2017 Visit Diagnosis Plan: Stridor Discussion: Increase Ati van 0.5mg po to TID routinely for next week then can go back to prn ICD-9 : 786.1 ICD-10 : R06.1 03/18/2017 Visit Diagnosis Plan: Chronic obstructiv e pulmonary disease with (acute) exacerbation Discussion: Finish prednisone Continue S VNS with albuterol ICD-9 : 491.21 ICD-10 : J44.1 03/18/2017 Appointment: Belia Reid WPtel: [address] [place] [address] ER Follow UP 03/18/2017 Patient Education: Patient [...] 250.02 ICD-10 : E11.65 02/27/2017 Appointment: Belia Reidtel: [address] [place], [place] [address] [place] FOLLOW UP 02/27/2017 Patient Education: Patient [...] ICD-10 : E11.65 02/22/2017 Appointment: [facility] [facility] 02/22/2017 Patient Education: Patient Medication Summary Completed 02/22/2017 Patient Education: Darrelity - 18+ Comple mague 02/22/2017 Visit Diagnosis [...] 486 ICD-10 : J18.9 01/23/2017 Appointment: Belia Reidl: [facility] [facility] Follow UP 01/23/2017 Patient Education: Patient Medication Summary Completed 01/23/2017 Appointment: [facility] CAN[facility]ED 01/17/2017 Appointment: Pattie Sotomayor [address] [place], [place] [address] Annual Well Visit 01/14/2017 Visit Diagnosis Plan: Localized edema Discussion: Low Na diet Compression socks/Elevate feet ICD-9 : 782.3 ICD-10 : R60.0 12/20/2016 Visit Diagnosis Plan: Type 2 diabetes mellitus with hy perglycemia Discussion: Check CMP, HbA1C Flu shot and Prevnar 13 given Follow Up: 3 months ICD-9 : 250.02 ICD-10 : E11.65 12/20/2016 Appointment: Belia Reid: [address] [facility] FOLLOW UP 12/20/2016 Patient Education: Patient Medication Summary Completed 12/20/2016 Patient Education: Patient Medication Summary Completed 10/10/2016 Visit Plan: Xrays of cervical, thoracic and lumbar spine at ER[facility] for Mobic (stop NSAIDS except Tylenol) and Flexeril UA sent for C&S Using SVN Call in 2-3 days if pain not improved or any worsening 10/08/2016 Appointment: Celeste Ferreira [facility]Ptel: [address] [facility] ACUTE ILLNESS 10/08/2016 Patient Education: Patient Medication Summary Completed 10/08/2016 Visit Diagnosis Plan: Primary insomnia Discussion: Fabian mendoza amitriptylene at current dose ICD-9 : 780.52 ICD-10 : F51.01 09/19/2016 Visit Diagnosis Plan: Type 2 diabetes mellitus with hy perglycemia Discussion: Accuchecks daily Check CMP, HbA1C Follow Up: 3 months ICD-9 : 250.02 ICD-10 : E11.65 09/19/2016 Visit Diagnosis Plan: Migraine, unspecif ied, not intractable, without status migrainosus Discussion: BP up so will increase propr anolol to 60mg po BID ICD-9 : 346.90 ICD-10 : G43.909 09/19/2016 Appointment: Belia Reid WPtel: [address] [place] [address] 09/18 confirmed`sl FOLLOW UP 09/19/2016 Patient Education: Patient Medication Summary Completed 09/19/2016 Visit Diagnosis Plan: Cough Discussion: Ativan 0.5 mg TID ICD-9 : 786.2 ICD-10 : R05 08/20/2016 Visit Diagnosis Plan: Generalized abdominal pain Discu ssion: fwup with urology in [place] Omeprazole 40 mg ICD-9 : 789.00 ICD-10 : R10.84 08/20/2016 Visit Diagnosis Plan: Migraine, unspecif ied, not intractable, without status migrainosus Discussion: Elavil 50mg PO qd Follow Up: 1 months ICD-9 : 346.90 ICD-10 : G43.909 08/20/2016 Appointment: Belia Reid WPtel: [address] [place], [place] [phone] 08/16 confirmed~sl FOLLOW UP 08/20/2016 Patient Education: Patient Medication Summary Completed 08/20/2016 Visit Diagnosis Plan: Chronic obstructive pulmonary di sease, unspecified Discussion: Stable with current inhalers Still has not moved out of current living situation ICD-9 : 496 ICD-10 : J44.9 06/19/2016 Visit Diagnosis Plan: Stridor Discussion: Keep lorazep am at QID dosing Follow Up: 2 months ICD-9 : 786.1 ICD-10 : R06.1 06/19/2016 Appointment: Belia Reid WPtel: [address] [place], [place] [phone] 06/18 confirmed ~ Hospital Follow Up 06/19/2016 [...] : Z87.440 06/04/2016 Appointment: Belia Reid WPtel: [address] [place], [place] [phone] 06/01 confirmed~sl FOLLOW UP 06/04/2016 Patient Education: Patient Medication Summary Completed 06/04/2016 Visit Diagnosis Plan: Other specified diseases of inte chana Discussion: Finish flagyl Schedule with Dr. Balderas for colonoscopy Start daily probiotic Follow Up: 1 months ICD-9 : 569.89 ICD-10 : K63.89 05/02/2016 Visit Diagnosis Plan: Stridor Discussion: Continue ati van at current khalil ICD-9 : 786.1 ICD-10 : R06.1 05/02/2016 Visit Diagnosis Plan: Cystitis, unspecified without he maturia Discussion: Finish macrobid then go to QOD on macrobid ICD-9 : 595.9 ICD-10 : N30.90 05/02/2016 Appointment: Belia Reid WPtel: [address] [place], [place] [address] 05/01 confirmed ~ Hospital Follow Up 05/02/2016 Patient Education: Patient Medication Summary Completed 05/02/2016 Visit Diagnosis Plan: Urinary tract infection, site no t specified Discussion: Sees Dr. Ortiz this Saturday Continue Detrol ICD-9 : 599.0 ICD-10 : N39.0 04/03/2016 Visit Diagnosis Plan: Fibromyalgia Discussion: Switch gabapentin to lyrica--decrease gabapentin to 300mg po BID for 1 week then start lyrica at 75mg daily and decrease gabapentin to 300mg daily for 1 week then stop gabapentin and increase lyrica to 75mg po BID--written instructions given to patient Recheck 1month after BID dosing of lyrica ICD-9 : 729.1 ICD-10 : M79.7 04/03/2016 Appointment: Bleia Reid WPtel: [address] [place], [place] [address] Follow Up 04/03/2016 Patient Education: Patient Medication Summary Completed 04/03/2016 Visit Plan: Lungs are clear Her symptoms and exam are all upper airway restriction/constriction Can try supportive care Rx as above Follow up PRN 02/29/2016 Appointment: Lidia Hwang [address] [place] [address] ACUTE ILLNESS 02/29/2016 Patient Education: Patient Medication Summary Completed 02/29/2016 Visit Plan: Toradol/Phenergan today for Migraine Change to Clindamycin to cover lactobacillus for UTI Cover with flagyl due to hx of C. Diff 02/02/2016 Appointment: Belia Reid WPtel: [address] [place], [place] [address] 01/31 confirmed` ACUTE ILLNESS 02/02/2016 Patient Education: Patient Medication Summary Completed 02/02/2016 Visit Plan: Increase neurontin to 300mg q AM and 600mg q PM Discussed neurology re-evaluation Flu shot given Need to check on Pneumonia shot Rx written out for albuterol 01/05/2016 Appointment: Belia Reid WPtel: [address] [place], [place] [phone] 01/03 confirmed ~sl Annual Well Visit 01/05/2016 Patient Education: Patient Medication Summary Completed 01/05/2016 Visit Plan: Cipro Culture urine hydrate Flexeril refilled Alternate heat and ice for back Increase gabapentin to 300mg po BID Notify if worsens 12/05/2015 Appointment: Belia Reid WPtel: [phone] [id number] 11/30 confirmed~sl ACUTE ILLNESS 12/05/2015 Patient Education: Patient Medication Summary Completed 12/05/2015 Patient Education: Patient Medication Summary Completed 10/27/2015 Care Plan: [place] : 13[address]-3 Pending 10/27/2015 Care Plan: A1C HPLC LOINC : 63706-7 Pending 10/27/2015 Visit Plan: Lungs are CTA today and is f eeling improved overall Finish meds as ordered Continue inhalers and neb treatments Discussed migraine treatment options She does not feel she needs anything additional added today Refill of Januvia sent since no samples are available today 10/26/2015 Appointment: Lidia Hwang [address] Hospital Follow Up 10/26/2015 Appointment: Lidia Hwang [address] CANCELED 10/26/2015 Patient Education: Patient Medication Summary Completed 10/26/2015 Patient Education: Januvia - 18+ - [place]H - No [place] Completed 10/26/2015 Visit Plan: Office dip still abnormal Cu lture pending Switch to cipro - stop macrobid Push fluids - avoid caffeine Will call with culture results when available Follow up if worsening 10/05/2015 Appointment: Lidia Hwang [address] ER Follow UP 10/05/2015 Patient Education: Patient Medication Summary Completed 10/05/2015 Visit Plan: Proceed with PT for document ation of ROM and strength of all extremities Proceed with Power Mobility Device Trial of neurontin 300mg q HS--lyrica helped but patient unable to afford Recheck 1month 09/15/2015 Appointment: Belia Reid WPtel: [address] [place], [place] [phone] 09/13 confirmed~sl SPECIAL 09/15/2015 Patient Education: Patient Medication Summary Completed 09/15/2015 Visit Plan: Fille out Loan Discharge Pap erwork for total and permanent disability 08/25/2015 Patient Education: Patient Medication Summary Completed 08/25/2015 Visit Plan: Discussed with Dr Franklin Haywood at CT of head Will get last date of carotid doppler from her cap coverer and update if needed 08/24/2015 Appointment: Lidia Hwang [address] [facility] 08/22 confirmed~sl ACUTE ILLNESS 08/24/2015 Patient Education: Patient Medication Summary Completed 08/24/2015 Patient Education: Patient Medication Summary Completed 08/24/2015 Care Plan: US EXAM OF HEAD AND NECK carotid Ultrasound LOIN C : 91002-9 Pending 08/24/2015 Visit Plan: Long discussion about diet A ccuchecks daily Check HbA1C, CMP Change requip to mirapex 07/05/2015 Appointment: Belia Reid WPtel: [address] [place], [place] [phone] 07/03 confirmed ~sl FOLLOW UP 07/05/2015 Patient Education: Patient Medication Summary Completed 07/05/2015 Visit Plan: Add Breo ellipta 100 1 p BID Continue SVNs with duoneb QID 06/06/2015 Appointment: Belia Reid WPtel: [address] [place], [place] [phone] Patient is calling for a ride, then retu rning our call.-sp 06/01 called and patient stated she will know saturday if she can get a ride~sl 06/05 [facility] Hospital Follow Up 06/06/2015 Patient Education: [...] not improving 05/23/2015 Appointment: Huong Osborne WPtel: [address] [place] [address] ACUTE ILLNESS 05/23/2015 Appointment: Lidia Hwang [address] [place] [address] ER Follow UP 05/23/2015 Patient Education: Patient Medication Summary Completed 05/23/2015 Visit Plan: Check pancreatic enzymes and US of pancreas as patient can't understand why she has diabetes since has no family history Discussed weight, diet, exercise all play an important role in diabetes and are risk factors as well Continue Januvia and accuchecks daily 05/05/2015 Appointment: Belia Reid WPtel: [address] [place] [address] US FOLLOW UP 05/05/2015 Patient Education: Patient Medication Summary Completed 05/05/2015 Care Plan: US EXAM ABDOM COMPLETE LOINC : 93407-1 Ordered 05/05/2015 Visit Plan: Start Januvia 100mg daily [place] with diflucan and culture urine Accuchecks daily alternating times Recheck 6weeks 03/30/2015 Appointment: Belia Reid WPtel: [address] [place] [address] 03/29 confirmed~lb FOLLOW UP 03/30/2015 Patient Education: Patient Medication Summary Completed 03/30/2015 Appointment: Belia Reid WPtel: [address] [place], [place] [phone] 03/01 needs reschedule due to payment and insurance ~sl FOLLOW UP 03/02/2015 Visit Plan: Patient was just in ER last night so has not filled scripts yet Start Carafate and Flagyl and Cipro Add Hyophen 1 po BID Recheck 1mo 02/03/2015 Appointment: Belia Reid WPtel: [address] [place] [address] [place] 02/02lm ~sl...02/03/15 appt confirmed cn ACUTE I LLNESS 02/03/2015 Patient Education: Patient Medication Summary Completed 02/03/2015 Visit Plan: Warm soaks to vaginal area K elex and Diflucan and observe Zofran to use prn 12/29/2014 Appointment: Belia Reid WPtel: [address] [place], [place] [phone] 12/28 Confirmed ~ ACUTE ILLNESS 12/29/2014 Patient Education: Patient Medication Summary Completed 12/29/2014 Appointment: Huong Osborne WPtel: [address] [place], [place] [phone] FOLLOW UP 09/24/2014 Appointment: Bleia Reid WPtel: [address] [place] [address] 09/15 confirmed - FOLLOW UP 09/16/2014 Visit Plan: Increase requip to 2mg po BI D Increase lyrica to 225mg total a day by adding an extra 75mg in AM Recheck in 2weeks Continue to patch left eye while sleeping 09/02/2014 Appointment: Belia Reid WPtel: [address] [place], [place] [address] 09/01 appt confirmed [facility] Follow Up 09/02 Patient Education: Patient Medication Summary Completed 09/02/2014 Visit Plan: To [facility] for observat ion to R/O CVA 08/25/2014 Appointment: Huong Osborne WPtel: [address] [place], [place] [phone] ACUTE ILLNESS 08/25/2014 Patient Education: Patient Medication Summary Completed 08/25/2014 Referral: Aaron Jonas WPtel: [facility] [address] [place] location Initiated 04/26/2014 Referral: Brian Srinivasan [facility]Ptel: [id number] Ref[facility] Initiated 04/20/2014 Appointment: Belia Reid WPtel: [address] [place], [place] [phone] ER Follow UP 04/01/2014 Patient Education: Patient Medication Summary Completed 04/01/2014 Care Plan: MYELOGRAPHY NECK SPINE LOINC : 28408-6 Ordered 04/01/2014 Visit Plan: Continue Symbicort 160 at 2p BID Continue SVNs with duoneb at least QID Finish Levaquin Recheck 1mo on lyrica 03/16/2014 Appointment: Belia Reid WPtel: [address] [place], [place] [phone] 03/15 voicemail FOLLOW UP 03/16/2014 Patient Education: Patient Medication Summary Completed 03/16/2014 Visit Plan: Restart SVNs with duoneb QID Repeat prednisone Levaquin Continue symbicort Keep lyrica at same dose Recheck 1week 03/09/2014 Appointment: Belia Reid WPtel: [address] [place], [place] [phone] FOLLOW UP 03/09/2014 Patient Education: Patient Medication Summary Completed 03/09/2014 Appointment: Belia Reid WPtel: [address] [place], [place] [phone] 03/03 showed up 15 minutes late for appt -- put her on Hunog's side for 10:45am FORGIVEN PER DR FOLLOW UP 03/03/2014 Appointment: Huong Osborne WPtel: [address] [place], [place] [phone] [place] FOLLOW UP 03/03/2014 Patient Education: Patient Medication Summary Completed 03/03/2014 Appointment: Huong Osborne WPtel: [address] [place], [place] [phone] ER Follow UP 03/01/2014 Patient Education: Patient Medication Summary Completed 03/01/2014 Visit Plan: Add carafate for this next m onth Increase lyrica to 150mg q HS 02/09/2014 Appointment: Belia Reid WPtel: [address] [place], [place] [phone] Hospital Follow Up 02/09/2014 Patient Education: Patient Medication Summary Completed 02/09/2014 Visit Plan: Increase omeprazole back to 40mg po BID Use requip in AM and add lyrica 75mg q HS Recheck 1mo 12/23/2013 Appointment: Belia Reid WPtel: [address] [place], [place] [phone] FOLLOW UP 12/23/2013 Patient Education: Patient Medication Summary Completed 12/23/2013 Patient Education: Patient Medication Summary Completed 12/04/2013 Appointment: Belia Reid WPtel: [address] [place], [place] [phone] UA 10/30/2013 Patient Education: Patient Medication Summary Completed 10/30/2013 Appointment: Belia Reid WPtel: [address] [place], [place] [phone] UA 10/21/2013 Patient Education: Patient Medication Summary Completed 10/21/2013 Visit Plan: Cryotherapy as above TAC and hydroxyzine to use prn to itching spots and itching SKs Add Advair HFA 115/21 1 p BID 10/05/2013 Appointment: Belia Reid WPtel: [address] [place], [place] [phone] 10/01 pt called and confirmed ACUTE ILLNESS Patient Education: Patient Medication Summary Completed 10/05/2013 Appointment: Belia Reid WPtel: [address] [place], [place] [phone] will pay copay and part of past balance FOLLOW U P 08/04/2013 Patient Education: Patient Medication Summary Completed 08/04/2013 Appointment: Belia Reid WPtel: [address] [place], [place] [phone] [place] INJECTION 07/13/2013 Patient Education: Patient Medication Summary Completed 07/13/2013 Appointment: Huong Osborne WPtel: [address] [place], [place] [phone] ACUTE ILLNESS 07/03/2013 Patient Education: Patient Medication Summary Completed 07/03/2013 Visit Plan: Cipro and culture urine 05/27/2013 Appointment: Huong Osborne WPtel: [address] [place], [place] [phone] 05/26 confirmed appt and notified that balance and certified endoscopy technician y is due at appt time FOLLOW UP 05/27/2013 Patient Education: Patient Medication Summary Completed 05/27/2013 Appointment: Belia Reid WPtel: [address] [place], [place] [phone] [place] UA 05/25/2013 Patient Education: Patient Medication Summary Completed 05/25/2013 Appointment: Belia Reid WPtel: [address] [place] [phone] US INJECTION 05/04/2013 Patient Education: Patient Medication Summary Completed 05/04/2013 Appointment: Belia Reid WPtel: [address] [place], [place] [phone] US INJECTION 04/17/2013 Patient Education: Patient Medication Summary Completed 04/17/2013 Appointment: Belia Reid WPtel: [address] [place], [place] [phone] US INJECTION 04/15/2013 Appointment: Belia Reid WPtel: [address] [place] [phone] 04/02 vm FOLLOW UP 04/06/2013 Patient Education: Patient Medication Summary Completed 04/06/2013 Visit Plan: Obtain lab results including UA from [facility] 11/10/2012 Appointment: Belia Reid WPtel: [address] [place], [place] [phone] [place] ER Follow UP 11/10/2012 Patient Education: Patient Medication Summary Completed 11/10/2012 Appointment: Belia Reid WPtel: [address] [place], [place] [phone] 10/30/12 patient canceled appt due to fin ances. Offered to work something out, patient declined-LB FOLLOW UP 11/05/2012 Visit Plan: Continue Bystolic at current dose Pt has fwup with Neurology on September 16 09/02/2012 Appointment: Belia Reid WPtel: [address] [place] [address] FOLLOW UP 09/02/2012 Patient Education: Patient Medication Summary Completed 09/02/2012 Visit Plan: Continue bystolic at 5mg chris ly Sees Neurology tomorrow Use oxygen at bedtime 08/04/2012 Appointment: Belia Reid WPtel: [address] [place] [address] FOLLOW UP 08/04/2012 Patient Education: Patient Medication Summary Completed 08/04/2012 Appointment: Belia Reid WPtel: [address] [place] [address] Hospital fwup for 07/21/12. merged appointments FOLLOW UP 07/24/2012 Visit Plan: Start Bystolic 5mg daily for tachycardia Fwup with neurology for further workup Overnight O2 sat 07/21/2012 Appointment: Belia Reid WPtel: [address] [place] [address] Hospital Follow Up 07/21/2012 Patient Education: Patient Medication Summary Completed 07/21/2012 Visit Plan: SVN with Albuterol QID Add A velox 400mg daily Notify if worsens or persists 07/02/2012 Appointment: Belia Reid WPtel: [address] [place] [address] ACUTE ILLNESS 07/02/2012 Patient Education: Patient Medication Summary Completed 07/02/2012 Appointment: Belia Reid WPtel: [address] [place], [place] [phone] INJECTION 06/25/2012 Patient Education: Patient Medication Summary Completed 06/25/2012 Appointment: Belia Reid WPtel: [address] [place], [place] [address] FOLLOW UP 06/24/2012 Patient Education: Patient Medication Summary Completed 06/24/2012 Appointment: Belia Reid WPtel: [address] [place] [address] 05/19 left message FOLLOW UP 05/20/2012 Patient [...] po TID 05/08/2012 Appointment: Belia Reid WPtel: [address] [place] [address] ACUTE ILLNESS 05/08/2012 Patient Education: Patient Medication Summary Completed 05/08/2012 Visit Plan: Continue current meds Contin ue lower dose on pain meds and Diazepam Still waiting on paperwork for botox for Migraines Will restart Neurontin at 600mg po q HS Pt going to stop Depakote due to can't afford 04/22/2012 Appointment: Belia Reid WPtel: [address] [place] [address] 04/21 Hospital Follow Up 04/22/2012 Patient Education: Patient Medication Summary Completed 04/22/2012 Visit Plan: Injection to shoulder as abo ve Continue current meds Has appointment with neurology on HAs in 02/13/2012 Appointment: Belia Reid WPtel: [address] [address] [place], [place] [phone] Pt does not have $10 copay at [facility] t time - will bring it in next week. Kianna iqbal'ed this. - [place] FOLLOW UP 02/13/2012 Patient Education: Patient Medication Summary Completed 02/13/2012 Visit Plan: Proceed with headache specia list Change nexium to Protonix Phenergan to use prn Sumatriptan to use prn Pt still on Inderal 01/28/2012 Appointment: Belia Reid WPtel: [address] [place] [address] ER Follow UP 01/28/2012 Patient Education: Patient [...] for sleep 12/26/2011 Appointment: Belia Reid WPtel: [address] [place] [address] 12/24- appt. confirmed FOLLOW UP 2 Patient Education: Patient Medication Summary Completed 12/26/2011 Appointment: Belia Reid WPtel: [address] [place] [address] [place] FOLLOW UP 11/14/2011 Patient Education: Patient Medication Summary Completed 11/14/2011 Appointment: Belia Reid WPtel: [address] [place], [place] [phone] [place] FOLLOW UP 09/12/2011 Patient Education: Patient Medication Summary Completed 09/12/2011 Visit Plan: Supportive care Decrease Liseth catalino to 50mg q HS Decrease AM dose of Valium to 5mg q HS Use Endocet sparingly 08/15/2011 Appointment: Belia Reid WPtel: [address] [place] [address] ER Follow UP 08/15/2011 Patient Education: Patient Medication Summary Completed 08/15/2011 Appointment: Belia Redi WPtel: [address] [place] [address] [place] Spoke directly to patient yesterday and confirmed the appoin tment. cn ACUTE ILLNESS 08/09/2011 Patient Education: Patient Medication Summary Completed 08/09/2011 Appointment: Belia Reid WPtel: [address] [place] [address] Hospital Follow Up 07/03/2011 Patient Education: Patient Medication Summary Completed 07/03/2011 Appointment: Belia Reid WPtel: [address] [place] [address] FOLLOW UP 06/04/2011 Patient Education: Patient Medication Summary Completed 06/04/2011 Visit Plan: Pt. wants "allergy shot" but in fact wants steroid shot. Will take a break from "generic Zyrtec they are getting from [facility]" and try Singulair for 2 weeks. 05/03/2011 Appointment: Iraida Jones WPtel: [address] [place] [address] ACUTE ILLNESS 05/03/2011 Patient Education: Patient Medication Summary Completed 05/03/2011 Visit Plan: Neurontin 400mg q HS for 1we ek then 800mg q HS Decrease requip to 1mg q HS for 2wks then stop Fwup 2mos 04/05/2011 Appointment: Belia Reid WPtel: [address] [place] [address] FOLLOW UP 04/05/2011 Patient Education: Patient Medication Summary Completed 04/05/2011 Visit Plan: Trial of neurontin in 2wks C ontinue current meds for stomach Pt has procedure with Dr. Ortiz next week for stone removal 03/08/2011 Appointment: Belia Reid WPtel: [address] [place] [address] Hospital Follow Up 03/08/2011 Patient Education: Patient Medication Summary Completed 03/08/2011 Appointment: Belia Reid WPtel: [address] [place] [address] FOLLOW UP 02/19/2011 Visit Plan: reports increased [...] with Flagyl 01/24/2011 Appointment: Iraida Jones WPtel: [address] [place] [address] ACUTE ILLNESS 01/24/2011 Patient Education: Patient Medication Summary Completed 01/24/2011 Appointment: Belia Reid WPtel: [address] [place] [address] [place] FOLLOW UP 01/02/2011 Patient Education: Patient Medication Summary Completed 01/02/2011 Appointment: Belia Reid WPtel: [address] [place] [address] FOLLOW UP 12/12/2010 Appointment: Belia Reid WPtel: [address] [place], [place] [id number] ACUTE ILLNESS 12/07/2010 Patient Education: Patient Medication Summary Completed 12/07/2010 Visit Plan: Increase Buspar to 10mg po B ID 11/16/2010 Appointment: Belia Reid WPtel: [address] [place], [place] [phone] [place] FOLLOW UP 11/16/2010 Patient Education: Patient Medication Summary Completed 11/16/2010 Appointment: Iraida Jones WPtel: [address] [place], [place] [phone] ER Follow UP 11/02/2010 Patient Education: Patient Medication Summary Completed 11/02/2010 Visit Plan: Depo-Medrol/Kenalog given fo r allergies Add BuSpar for anxiety Oxycodone one p.o. q.i.d. for number 120 refilled 10/18/2010 Appointment: Belia Reid WPtel: [address] [place], [place] [phone] [place] FOLLOW UP 10/18/2010 Patient Education: Patient Medication Summary Completed 10/18/2010 Visit Plan: Continue current meds Discus sed epidurals for back vs PT--will proceed with epidurals to thoracolumbar region to see if helps with pain 09/19/2010 Appointment: Belia Reid WPtel: [address] [place], [place] [phone] FOLLOW UP 09/19/2010 Patient Education: Patient Medication Summary Completed 09/19/2010 Visit Plan: DC MS contin Check CT scan t horacic spine Fwup pending above results 09/06/2010 Appointment: Belia Reid WPtel: [address] [place], [place] [phone] FOLLOW UP 09/06/2010 Patient Education: Patient Medication Summary Completed 09/06/2010 Visit Plan: Continue current meds Restar t MS contin 15mg po BID and use oxycodone prn Use daily senokot-s 2 po BID 08/10/2010 Appointment: Belia Reid WPtel: [address] [place], [place] [phone] FOLLOW UP 08/10/2010 Patient Education: Patient Medication Summary Completed 08/10/2010 Visit Plan: Depomedrol/Kenalog given Pt sees ENT later this month Cont current meds Mammo scheduled 05/11/2010 Appointment: Belia Reid WPtel: [address] [place], [place] [phone] FOLLOW UP 05/11/2010 Patient Education: Patient Medication Summary Completed 05/11/2010 Appointment: Belia Reid WPtel: [address] [place], [place] [phone] UA 05/04/2010 Patient Education: Patient Medication Summary Completed 05/04/2010 Visit Plan: Pt sent to lab for UA 04/28/2010 Appointment: Belia Reid WPtel: [address] [place], [place] [phone] UA 04/28/2010 Patient Education: Patient Medication Summary Completed 04/28/2010 Visit Plan: Check CT angiogram of chest Restart Advair Use proair prn Cont current meds Fwup with Card as schedulec 04/06/2010 Appointment: Belia eRidtel: [address] [place] [address] Follow Up 04/06/2010 Patient Education: Patient Medication Summary Completed 04/06/2010 Visit Plan: Paperwork filled out for pow erchair Depomedrol/kenalog given Pt sees ENT in 2wks to assess nasal obstruction problems 02/09/2010 Appointment: Belia Reid WPtel: [address] [place] [address] ESTABLISHED PATIENT 02/09/2010 Patient Education: Patient Medication Summary Completed 02/09/2010 Visit Plan: Change Elavil to Trazadone 1 50mg q HS Diflucan and nystatin for tinea cruris 01/05/2010 Appointment: Belia Reid WPtel: [address] [place] [address] FOLLOW UP 01/05/2010 Patient Education: Patient Medication Summary Completed 01/05/2010 Appointment: Belia Reidtel: [address] [place] [address] FOLLOW UP 12/07/2009 Patient Education: Patient Medication Summary Completed 12/07/2009 Appointment: Belia Reid WPtel: [address] [place] [address] FOLLOW UP 11/22/2009 Visit Plan: Cont current meds and await MRI results from Dr. Meadows's office and his final recommendations Will need to follow-up at later date on deviated septum 11/08/2009 Appointment: Belia Reid WPtel: [address] [place], [place] [address] FOLLOW UP 11/08/2009 Patient Education: Patient Medication Summary Completed 11/08/2009 Visit Plan: Cont PT/OT See Neurosurgery Cont Tortoise shell brace 10/24/2009 Appointment: Belia Reid WPtel: [address] [place] [address] FOLLOW UP 10/24/2009 Patient Education: Patient Medication Summary Completed 10/24/2009 Appointment: Belia Reid WPtel: [address] [place] [address] Hospital Follow Up 10/17/2009 Appointment: Belia Reid WPtel: [address] [place] [address] ACUTE ILLNESS 07/25/2009 Patient Education: Patient Medication Summary Completed 07/25/2009 Appointment: Belia Reid WPtel: [address] [place] [address] FOLLOW UP 05/26/2009 Patient Education: Patient Medication Summary Completed 05/26/2009 Referral: Chino Balderas WPtel: [address] Referral Initiated Referral: Merry Vale WPtel: [facility] [id number] Vale will review referral and book appointment Completed Referral: Francisco Javier Yoder WPtel: [address] [id number] Patient needs EGD insurance will not inc rease a medication unless this procedure results show a need Completed Referral: Francisco Javier Yoder WPtel: [address] [id number] [place] Referral Historical Reference Referral: Francisco Javier Yoder WPtel: [address] [place] [address] [place] Referral Initiated Instructions Comment . Xrays [...] last date of carotid doppler from her cap coverer and update if needed . Long discussion [...] from "generic Zyrtec they are getting from [facility]" and try Singulair for 2 weeks. . [...]
--- OUTSIDE RECORDS SUMMARY | 2019-06-23 18:00 | XMS REPORT | CCD ---
Author Author Diana Reid D.O. 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 Name Role Phone Belia Reid D.O., PP Unavailable CCM Unavailable Summary Purpose Interface Exchange Insurance Providers Payer name Policy type / Coverage type Covered democrat ID Effective Begin Date Effective End Date [employer] MEDICARE Medicare Part B [id number] 2019 Unknown Family History Family History data not found Social History Social History Element Codes Description Effective Dates Tobacco history SNOMED CT: 712361694 Nonsmoker 09/13/2010 Allergies, Adverse Reactions, Alerts Substance Reaction Codes Entered Date Inactivated Date Status Eggs reaction [id number] 09/15/2015 No Inactive Date Active _ Unknown [...] Instructions hydroxyzine HCl 25 mg tablet RxNorm: 717493 1 Tablet(s) Oral QPM for itching/aniety 05/13/2019 07/28/2019 Active gabapentin 600 mg tablet RxNorm: 292534 1 Tablet(s) Oral QD 020 06/05/2019 Active Singulair 10 mg tablet RxNorm: 702448 1 Tablet(s) Oral QPM 05/06/19 20 05/12/2019 Inactive Valium 5 mg tablet RxNorm: 674531 1 Tablet(s) Oral QPM for stri joao/muscle spasm 04/29/2019 05/29/2019 Active baclofen 10 mg tablet RxNorm: 441383 1 Tablet(s) Oral QPM for s pasm/neck pain 04/24/2019 05/23/2019 Active baclofen 10 mg tablet RxNorm: 393288 1 Tablet(s) Oral QPM for s pasm/neck pain 04/24/2019 04/23/2019 Inactive Novolin N NPH U-100 Insulin isophane 100 unit/mL subcu taneous susp RxNorm: 869560 23 Unit(s) Subcutaneous two times a day 04/20/2019 No Stop Date A ctive cyclobenzaprine 5 mg tablet RxNorm: 876221 1 Tablet(s) Oral three times a day as needed 04/16/2019 04/23/2019 Inactive hydroxyzine HCl 25 mg tablet RxNorm: 689850 1 Tablet(s) Oral three times a day for itching/aniety 04/08/2019 05/12/2019 Inactive gabapentin 600 mg tablet RxNorm: 074009 1 Tablet(s) Oral two ti mes a day 04/08/2019 05/05/2019 Inactive gabapentin 600 mg tablet RxNorm: 572141 1 Tablet(s) Oral two ti mes a day 04/08/2019 04/07/2019 Inactive Novolin N NPH U-100 Insulin isophane 100 unit/mL subcu taneous susp RxNorm: 892917 10 Unit(s) Subcutaneous two times a day 03/03/2019 04/19/2019 I nactive gabapentin 300 mg capsule RxNorm: 353241 1 Capsule(s) O ral every night at bedtime for neuropathy 02/26/2019 04/07/2019 Inactive gabapentin 300 mg capsule RxNorm: 924378 1 Capsule(s) O ral every night at bedtime for neuropathy 02/20/2019 02/25/2019 Inactive pramipexole 1 mg tablet RxNorm: 153237 1 Tablet(s) Oral QPM FOR RESTLESS LEGS (REPLACES REQUIP) 02/12/2019 02/07/2020 Active buspirone 5 mg tablet RxNorm: 658900 TAKE 1 TABLET THREE TIMES MILDRED Y 02/12/2019 05/12/2019 Inactive Lexapro 10 mg tablet RxNorm: 468120 TAKE 1 TABLET EVERY DAY FOR MOO D 01/31/2019 No Stop Date Active Ativan 0.5 mg tablet RxNorm: 926056 TAKE 1 TABLET BY MO UT THREE TIMES DAILY NEEDED FOR ANXIETY 01/26/2019 04/28/2019 Inactive Ativan 0.5 mg tablet RxNorm: 569253 TAKE 1 TABLET BY MO UTH THREE TIMES DAILY NEEDED FOR ANXIETY 01/05/2019 01/05/2019 Inactive Levaquin 500 mg tablet RxNorm: 555199 1 Tablet(s) Oral QD 12/25/2018 12/24/2018 Inactive Levaquin 500 mg tablet RxNorm: 481511 1 Tablet(s) Oral QD 12/25/2018 01/04/2019 Inactive baclofen 10 mg tablet RxNorm: 816956 1 Tablet(s) Oral three maico es a day 11/20/2018 01/19/2019 Inactive Ativan 0.5 mg tablet RxNorm: 022800 TAKE 1 TABLET BY [facility] THREE TIMES DAILY NEEDED FOR ANXIETY 11/20/2018 01/04/2019 Inactive gabapentin 300 mg capsule RxNorm: 646919 1 Capsule(s) O ral every night at bedtime for neuropathy 11/20/2018 12/20/2018 Inactive Lexapro 10 mg tablet RxNorm: 839274 1 Tablet(s) PO QD for mood 07/201801/30/2019 Inactive Zithromax Z-Lj 250 mg tablet RxNorm: 873426 Tablet(s) PO take as directed 11/04/2018 11/19/2018 Inactive Insulin Syringe 1 mL 29 gauge x 1/2" RxNorm: 2 s yringes daily with insulin Dx: E11.65 10/08/2018 No Stop Date Active gabapentin 300 mg capsule RxNorm: 658396 1 Capsule(s) PO QHS fo r neuropathy 09/18/2018 10/17/2018 Inactive cyclobenzaprine 5 mg tablet RxNorm: 710683 1 Tablet(s) PO TID a s needed 09/09/2018 09/08/2018 Inactive cyclobenzaprine 5 mg tablet RxNorm: 393446 1 Tablet(s) PO TID a s needed 09/09/2018 10/08/2018 Inactive prednisone 20 mg tablet RxNorm: 673656 1 Tablet(s) PO QD 09/08/2018 0 09/12/2018 Inactive Lantus Solostar U-100 Insulin 100 unit/mL (3 mL) subcu taneous pen RxNorm: 058089 55 Unit(s) SQ QAM 08/28/2018 11/03/2018 Inactive hydroxyzine HCl 25 mg tablet RxNorm: 816191 1 Tablet(s) PO QHS for itching 08/20/2018 05/12/2019 Inactive Lexapro 10 mg tablet RxNorm: 438068 1 Tablet(s) PO QD for mood 08/0210/18/2018 Inactive sumatriptan 100 mg tablet RxNorm: 985365 1 Tablet(s) PO at headache onset. May repeat 1 in two hours if headache remains. Max of 2 per 24 hours 04/02/2018 05/20/2018 Inactive Diflucan 150 mg tablet RxNorm: 268796 1 Tablet(s) PO QD 03/18/2018 Inactive Diflucan 150 mg tablet RxNorm: 502946 1 Tablet(s) PO QD 03/18/2018 Inactive Flagyl 500 mg tablet RxNorm: 976871 1 Tablet(s) PO TID 03/17/2018 Inactive Levaquin 500 mg tablet RxNorm: 016378 1 Tablet(s) PO QD 03/17/2018 Inactive Levaquin 500 mg tablet RxNorm: 283513 1 Tablet(s) PO QD 03/17/2018 Inactive Flagyl 500 mg tablet RxNorm: 060352 1 Tablet(s) PO TID 03/17/2018 Inactive ketoconazole 200 mg tablet RxNorm: 256373 1 Tablet(s) PO QD 019 03/19/2018 Inactive Celebrex 200 mg capsule RxNorm: 093029 1 Capsule(s) PO BID 02/06/20 18 05/20/2018 Inactive tramadol 50 mg tablet RxNorm: 619038 1 Tablet(s) PO TID as needed 1 04/08/2017 05/20/2018 Inactive gabapentin 300 mg capsule RxNorm: 636513 1 Capsule(s) PO BID 201705/20/2018 Inactive Diflucan 150 mg tablet RxNorm: 498249 1 Tablet(s) PO QD 01/20/2018 Inactive pramipexole 1 mg tablet RxNorm: 230788 1 Tablet(s) PO Q PM FOR RESTLESS LEGS (REPLACES REQUIP) 01/08/2018 02/11/2019 Inactive cyclobenzaprine 10 mg tablet RxNorm: 761728 1 Tablet(s) PO TID as needed for muscle spasm 12/17/2017 05/20/2018 Inactive pramipexole 1 mg tablet RxNorm: 120272 TAKE 1 TABLET BY MOUTH ONCE DAILY IN THE EVENING FOR RESTLESS LEGS (REPLACES REQUIP) 12/04/2017 01/05/2018 Inac tive Amaryl 4 mg tablet RxNorm: 515881 1 Tablet(s) PO BID replaces 2mg 0 11/05/2017 12/16/2017 Inactive Singulair 10 mg tablet RxNorm: 754617 1 Tablet(s) PO QHS for al lergies/lungs 10/30/2017 12/16/2017 Inactive Diflucan 100 mg tablet RxNorm: 436377 1 Tablet(s) PO QD 10/23/2017 Inactive Ativan 0.5 mg tablet RxNorm: 875703 TAKE 1 TABLET BY MOUTH THRE E TIMES DAILY 08/30/2017 11/20/2018 Inactive buspirone 5 mg tablet RxNorm: 480640 1 Tablet(s) PO TID 07/11/2017 Inactive propranolol 60 mg tablet RxNorm: 711997 1 Tablet(s) PO BID repl aces 40mg dose 06/26/2017 12/16/2017 Inactive Amaryl 4 mg tablet RxNorm: 877754 1 Tablet(s) PO BID replaces 2mg 0 06/12/2017 11/05/2017 Inactive omeprazole 40 mg capsule,delayed release RxNorm: 448715 1 Capsule(s) PO BID TAKE ONE CAPSULE BY MOUTH TWICE DAILY 05/30/2017 11/25/2017 Inactive pramipexole 1 mg tablet RxNorm: 475772 1 Tablet(s) PO Q PM for restless legs--replaces requip 05/30/2017 11/25/2017 Inactive amitriptyline 50 mg tablet RxNorm: 313884 1 Tablet(s) PO QHS 201709/16/2017 Inactive Diflucan 100 mg tablet RxNorm: 731384 1 Tablet(s) PO BID 05/07/2017 0 05/20/2017 Inactive nystatin (bulk) 100 million unit powder RxNorm: Application TO P BID 05/07/2017 05/20/2018 Inactive cholestyramine (with sugar) 4 gram oral powder RxNorm: 072857 1 Unit Dose PO QD 05/07/2017 01/20/2018 Inactive Ativan 0.5 mg tablet RxNorm: 599416 TAKE ONE TABLET BY MOUTH TH REE TIMES DAILY 05/01/2017 09/02/2017 Inactive Trulicity 1.5 mg/0.5 mL subcutaneous pen injector RxNorm: 15 98882 1 Unit Dose SQ WEEKLY 02/22/2017 03/23/2017 Inactive doxycycline hyclate 100 mg capsule RxNorm: 6521490 1 Capsule(s) PO BID 01/23/2017 02/05/2017 Inactive Amaryl 4 mg tablet RxNorm: 011307 1 Tablet(s) PO BID replaces 2mg 1 03/25/2016 05/22/2017 Inactive magnesium oxide 400 mg capsule RxNorm: 953241 1 Capsule(s) PO QD 07/18/2017 Inactive Ativan 0.5 mg tablet RxNorm: 984301 TAKE ONE TABLET BY MOUTH TH REE TIMES DAILY 01/17/2017 05/01/2017 Inactive Amaryl 2 mg tablet RxNorm: 998610 1 Tablet(s) PO BID 12/27/201601/22 Inactive Amaryl 2 mg tablet RxNorm: 103575 1 Tablet(s) PO BID 12/26/201612/26 Inactive Ativan 0.5 mg tablet RxNorm: 791224 TAKE ONE TABLET BY MOUTH TH REE TIMES DAILY 12/05/2016 01/18/2017 Inactive pramipexole 1 mg tablet RxNorm: 867609 1 Tablet(s) PO Q PM for restless legs--replaces requip 11/26/2016 05/30/2017 Inactive Mobic 15 mg tablet RxNorm: 330785 1 Tablet(s) PO QD 10/08/20162016 Inactive cyclobenzaprine 5 mg tablet RxNorm: 238412 1/2- 1 Tablet(s) PO TID 10/08/2016 10/17/2016 Inactive Ativan 0.5 mg tablet RxNorm: 859673 1 Tablet(s) PO TID 09/20/201607/2016 Inactive amitriptyline 50 mg tablet RxNorm: 887325 1 Tablet(s) PO QHS 201605/30/2017 Inactive propranolol 60 mg tablet RxNorm: 901230 1 Tablet(s) PO BID repl aces 40mg dose 09/19/2016 06/26/2017 Inactive Ativan 0.5 mg tablet RxNorm: 140791 1 Tablet(s) PO TID 08/20/2016 Inactive omeprazole 40 mg capsule,delayed release RxNorm: 093027 1 Capsule(s) PO BID TAKE ONE CAPSULE BY MOUTH TWICE DAILY 08/20/2016 05/30/2017 Inactive amitriptyline 50 mg tablet RxNorm: 698364 1 Tablet(s) PO QHS 201609/18/2016 Inactive pramipexole 1 mg tablet RxNorm: 772686 1 Tablet(s) PO Q PM for restless legs--replaces requip 07/23/2016 11/25/2016 Inactive Amaryl 2 mg tablet RxNorm: 100757 1 Tablet(s) PO BID 07/23/201612/27 Inactive propranolol 40 mg tablet RxNorm: 776849 1 Tablet(s) PO BID 07/13/19 17 09/18/2016 Inactive Ativan 0.5 mg tablet RxNorm: 398815 1 Tablet(s) PO QID 06/19/2016 Inactive Amaryl 2 mg tablet RxNorm: 018905 1 Tablet(s) PO BID 06/19/201607/22 Inactive Ativan 0.5 mg tablet RxNorm: 433160 1 Tablet(s) PO QID 06/19/2016 Inactive buspirone 5 mg tablet RxNorm: 189649 1 Tablet(s) PO TID 06/19/2016 Inactive Ativan 0.5 mg tablet RxNorm: 573266 1 Tablet(s) PO BID 05/24/2016 Inactive buspirone 5 mg tablet RxNorm: 576520 1 Tablet(s) PO TID 05/23/2016 Inactive Macrobid 100 mg capsule RxNorm: 713375 1 Capsule(s) PO QOD 05/03/1910/07/2016 Inactive pramipexole 1 mg tablet RxNorm: 371085 Tablet(s) 1 Tabl et(s) PO QPM for restless legs--replaces requip 04/26/2016 06/24/2016 Inactive propranolol 40 mg tablet RxNorm: 214266 TAKE ONE TABLET BY MOUT H TWICE DAILY 04/26/2016 06/24/2016 Inactive Detrol LA 4 mg capsule,extended release RxNorm: 493182 1 Capsul e(s) PO QHS 04/03/2016 05/02/2016 Inactive prednisone 20 mg tablet RxNorm: 285535 1 Tablet(s) PO QD 02/29/2016 0 03/04/2016 Inactive Actos 30 mg tablet RxNorm: 619230 TAKE ONE TABLET BY MOUTH ONCE DAILY 02/27/2016 12/19/2016 Inactive clindamycin 300 mg capsule RxNorm: 282320 1 Capsule(s) PO TID 02/0102/08/2016 Inactive Flagyl 500 mg tablet RxNorm: 856888 1 Tablet(s) PO BID 02/02/201609/2015 Inactive omeprazole 40 mg capsule,delayed release RxNorm: 840055 TAKE ONE CAPSULE BY MOUTH TWICE DAILY 01/15/2016 07/12/2016 Inactive gabapentin 300 mg capsule RxNorm: 813374 1 Capsule(s) PO QAM an d 2 po q HS 01/05/2016 06/18/2016 Inactive gabapentin 300 mg capsule RxNorm: 767179 1 Capsule(s) P O BID 1 Capsule(s) PO QHS 12/05/2015 01/04/2016 Inactive cyclobenzaprine 10 mg tablet RxNorm: 653507 1 Tablet(s) PO TID for spasm as needed for muscle spasm 12/05/2015 06/18/2016 Inactive ciprofloxacin 250 mg tablet RxNorm: 343268 1 Tablet(s) PO BID 12/0412/14/2015 Inactive pramipexole 1 mg tablet RxNorm: 717194 Tablet(s) 1 Tabl et(s) PO QPM for restless legs--replaces requip 11/07/2015 11/26/2016 Inactive Januvia 100 mg tablet RxNorm: 362643 1 Tablet(s) PO QD 10/26/201504/2015 Inactive propranolol 40 mg tablet RxNorm: 465523 TAKE ONE TABLET BY MOUT H TWICE DAILY 10/25/2015 04/21/2016 Inactive gabapentin 300 mg capsule RxNorm: 759722 1 Capsule(s) PO QHS 201512/04/2015 Inactive Cipro 500 mg tablet RxNorm: 124290 1 Tablet(s) PO BID 10/05/201511/2015 Inactive pramipexole 1 mg tablet RxNorm: 773504 Tablet(s) 1 Tabl et(s) PO QPM for restless legs--replaces requip 10/04/2015 11/02/2015 Inactive propranolol 40 mg tablet RxNorm: 163363 TAKE ONE TABLET BY MOUT H TWICE DAILY 09/26/2015 10/24/2015 Inactive Amaryl 2 mg tablet RxNorm: 756931 1 Tablet(s) PO QD 09/15/20152016 Inactive gabapentin 300 mg capsule RxNorm: 917375 1 Capsule(s) PO QHS 201510/14/2015 Inactive buspirone 5 mg tablet RxNorm: 627819 1 Tablet(s) PO TID 09/15/2015 Inactive pramipexole 1 mg tablet RxNorm: 519591 Tablet(s) 1 Tabl et(s) PO QPM for restless legs--replaces requip 09/08/2015 10/03/2015 Inactive pramipexole 1 mg tablet RxNorm: 059034 1 Tablet(s) PO Q PM for restless legs--replaces requip 08/08/2015 09/08/2015 Inactive Amaryl 2 mg tablet RxNorm: 137143 1 Tablet(s) PO QD 07/07/20152015 Inactive pramipexole 1 mg tablet RxNorm: 604850 1 Tablet(s) PO Q PM for restless legs--replaces requip 07/05/2015 08/03/2015 Inactive ropinirole 2 mg tablet RxNorm: 390784 TAKE ONE TABLET BY MOUTH TWICE DAILY 05/09/2015 09/14/2015 Inactive Diflucan 100 mg tablet RxNorm: 955898 1 Tablet(s) PO QD 03/30/2015 Inactive propranolol 40 mg tablet RxNorm: 758397 1 Tablet(s) PO BID 02/24/2008/21/2015 Inactive [SAVINGS FOR UNINSURED PATIE NTS -- BIN:679432, PCN: ASPROD1, Group: AME08, ID# [id number], Process claim through [employer], for questions: . THIS IS NOT INSURANCE.] Flagyl 500 mg tablet RxNorm: 172119 1 Tablet(s) PO BID 02/03/201502/2015 Inactive Cipro 500 mg tablet RxNorm: 032599 1 Tablet(s) PO BID 02/03/201502/01 Inactive Carafate 1 gram tablet RxNorm: 096525 1 Tablet(s) PO QID make i nto slurry 02/03/2015 09/14/2015 Inactive ondansetron HCl 4 mg tablet RxNorm: 309298 1 Tablet(s) PO Q4H as needed for nausea 12/29/2014 01/04/2016 Inactive Diflucan 100 mg tablet RxNorm: 308206 1 Tablet(s) PO QD 12/29/2014 Inactive Keflex 500 mg capsule RxNorm: 769980 1 Capsule(s) PO TID 12/29/2014 1 03/09/2014 Inactive omeprazole 40 mg capsule,delayed release RxNorm: 842254 1 Capsu le(s) PO BID 12/27/2014 12/21/2015 Inactive [SAVINGS FOR UNINSUR ED PATIENTS -- BIN:590641, PCN: ASPROD1, Group: AME08, ID# [id number], Process claim through [employer], for questions: . THIS IS NOT INSURANCE.] ropinirole 2 mg tablet RxNorm: 693251 1 Tablet(s) PO BID 09/29/2014 0 03/27/2015 Inactive [SAVINGS FOR UNINSURED PATIENTS -- BIN:0 39516, PCN: ASPROD1, Group: AME08, ID# [id number], Process claim through [employer], for questions: . THIS IS NOT INSURANCE.] buspirone 5 mg tablet RxNorm: 239592 1 Tablet(s) PO TID 09/17/2014 Inactive ropinirole 2 mg tablet RxNorm: 026061 1 Tablet(s) PO BID 09/02/2014 0 09/28/2014 Inactive [SAVINGS FOR UNINSURED PATIENTS -- BIN:0 75057, PCN: ASPROD1, Group: AME08, ID# [id number], Process claim through [employer], for questions: . THIS IS NOT INSURANCE.] Zyrtec 10 mg tablet RxNorm: 2742117 1 Tablet(s) PO QD 09/02/201412/02 Inactive propranolol 40 mg tablet RxNorm: 949329 1 Tablet(s) PO BID 07/21/19 15 02/23/2015 Inactive [SAVINGS FOR UNINSURED PATIE NTS -- BIN:090448, PCN: ASPROD1, Group: AME08, ID# [id number], Process claim through [employer], for questions: . THIS IS NOT INSURANCE.] ropinirole 2 mg tablet RxNorm: 250631 1 Tablet(s) PO QHS 05/14/2014 0 09/01/2014 Inactive [SAVINGS FOR UNINSURED PATIENTS -- BIN:0 45847, PCN: ASPROD1, Group: AME08, ID# [id number], Process claim through [employer], for questions: . THIS IS NOT INSURANCE.] cyclobenzaprine 10 mg tablet RxNorm: 366350 1 Tablet(s) PO QHS for spasm 04/06/2014 09/01/2014 Inactive ipratropium-albuterol 0.5 mg-3 mg(2.5 mg base)/3 mL ne bulization soln RxNorm: 8660937 1 Unit Dose INH Q4H 03/16/2014 No Stop Date Active [SAVINGS FOR UNINSURED PATIENTS -- BIN:413937, PCN: ASPROD1, Group: AME08, ID# [id number], Process claim through [employer], for questions: . THIS IS NOT INSURANCE.] prednisone 20 mg tablet RxNorm: 462917 1 Tablet(s) PO BID 03/09/2014 03/15/2014 Inactive [SAVINGS FOR UNINSURED PATIENTS -- BIN:0 19948, PCN: ASPROD1, Group: AME08, ID# [id number], Process claim through [employer], for questions: . THIS IS NOT INSURANCE.] ipratropium-albuterol 0.5 mg-3 mg(2.5 mg base)/3 mL ne bulization soln RxNorm: 0713793 1 Unit Dose INH Q4H 03/09/2014 03/15/2014 Inactive [SAVINGS FOR UNINSURED PATIENTS -- BIN:518845, PCN: ASPROD1, Group: AME08, ID# [id number], Process claim through [employer], for questions: . THIS IS NOT INSURANCE.] Levaquin 500 mg tablet RxNorm: 812403 1 Tablet(s) PO QD 03/09/2014 Inactive [SAVINGS FOR UNINSURED PATIENTS -- BIN:0 84589, PCN: ASPROD1, Group: AME08, ID# [id number], Process claim through [employer], for questions: . THIS IS NOT INSURANCE.] Carafate 1 gram tablet RxNorm: 359773 1 Tablet(s) PO AC & HS ma ke into slurry 02/09/2014 09/01/2014 Inactive [SAVINGS FOR UNINSUR ED PATIENTS -- BIN:248491, PCN: ASPROD1, Group: AME08, ID# [id number], Process claim through [employer], for questions: . THIS IS NOT INSURANCE.] Fioricet 50 mg-300 mg-40 mg capsule RxNorm: 2554505 1-2 Capsule(s) PO Q4H as needed for headache --max of 6 a day 02/09/2014 09/01/2014 Inactive [SAVINGS FOR UNINSURED PATIENTS -- BIN:524364, PCN: ASPROD1, Group: AME08, ID# [id number], Process claim through [employer], for questions: . THIS IS NOT INSURANCE.] propranolol 40 mg tablet RxNorm: 148337 1 Tablet(s) PO BID 12/08/19 14 06/04/2014 Inactive [SAVINGS FOR UNINSURED PATIE NTS -- BIN:582367, PCN: ASPROD1, Group: AME08, ID# [id number], Process claim through [employer], for questions: . THIS IS NOT INSURANCE.] buspirone 5 mg tablet RxNorm: 545957 1 Tablet(s) PO TID 12/02/2013 Inactive omeprazole 40 mg capsule,delayed release RxNorm: 700180 1 Capsu le(s) PO BID 11/25/2013 11/19/2014 Inactive [SAVINGS FOR UNINSUR ED PATIENTS -- BIN:755629, PCN: ASPROD1, Group: AME08, ID# [id number], Process claim through [employer], for questions: . THIS IS NOT INSURANCE.] ropinirole 2 mg tablet RxNorm: 124714 1 Tablet(s) PO QHS 11/10/2013 0 05/08/2014 Inactive [SAVINGS FOR UNINSURED PATIENTS -- BIN:0 86392, PCN: ASPROD1, Group: AME08, ID# [id number], Process claim through [employer], for questions: . THIS IS NOT INSURANCE.] Cipro 500 mg tablet RxNorm: 916391 1 Tablet(s) PO BID 10/21/201312/03 Inactive [SAVINGS FOR UNINSURED PATIENTS -- BIN:0 91861, PCN: ASPROD1, Group: AME08, ID# [id number], Process claim through [employer], for questions: . THIS IS NOT INSURANCE.] hydroxyzine HCl 25 mg tablet RxNorm: 734384 1 Tablet(s) PO Q4-6 H as needed 10/05/2013 01/04/2016 Inactive [SAVINGS FOR UNINSUR ED PATIENTS -- BIN:542489, PCN: ASPROD1, Group: AME08, ID# [id number], Process claim through [employer], for questions: . THIS IS NOT INSURANCE.] triamcinolone acetonide 0.1 % topical cream RxNorm: 5629724 Appl ication TOP BID 10/05/2013 09/01/2014 Inactive [SAVINGS FOR UNINSUR ED PATIENTS -- BIN:350071, PCN: ASPROD1, Group: AME08, ID# [id number], Process claim through [employer], for questions: . THIS IS NOT INSURANCE.] albuterol sulfate HFA 90 mcg/actuation aerosol inhaler RxNor m: 6268198 2 Puff(s) INH Q4H as needed for cough 10/01/2013 12/22/2013 Inactive [MAKSIM INGS FOR UNINSURED PATIENTS -- BIN:827891, PCN: ASPROD1, Group: AME08, ID# [id number], Process claim through [employer], for questions: . THIS IS NOT INSURANCE.] propranolol 40 mg tablet RxNorm: 809599 1 Tablet(s) PO BID 09/02/19 14 11/29/2013 Inactive [SAVINGS FOR UNINSURED PATIE NTS -- BIN:015952, PCN: ASPROD1, Group: AME08, ID# [id number], Process claim through [employer], for questions: . THIS IS NOT INSURANCE.] propranolol 40 mg tablet RxNorm: 614129 1 Tablet(s) PO BID 08/05/19 14 08/31/2013 Inactive [SAVINGS FOR UNINSURED PATIE NTS -- BIN:137097, PCN: ASPROD1, Group: AME08, ID# [id number], Process claim through [employer], for questions: . THIS IS NOT INSURANCE.] Toprol XL 50 mg tablet,extended release RxNorm: 010011 1 Tablet (s) PO QHS 07/23/2013 08/03/2013 Inactive Macrobid 100 mg capsule RxNorm: 600915 1 Capsule(s) PO BID 07/04/19 14 07/09/2013 Inactive Toprol XL 50 mg tablet,extended release RxNorm: 860880 1 Tablet (s) PO QHS 05/28/2013 06/26/2013 Inactive ciprofloxacin 500 mg tablet RxNorm: 846905 1 Tablet(s) PO BID 05/2706/02/2013 Inactive Bystolic 5 mg tablet RxNorm: 197994 1 Tablet(s) PO QD 05/27/201305/03 Inactive ropinirole 2 mg tablet RxNorm: 845600 1 Tablet(s) PO QHS 04/22/2013 0 11/09/2013 Inactive Cipro 250 mg tablet RxNorm: 218305 1 Tablet(s) PO BID 04/06/201311/2013 Inactive ropinirole 2 mg tablet RxNorm: 592314 1 Tablet(s) PO QHS 02/17/2013 0 04/21/2013 Inactive Amaryl 2 mg tablet RxNorm: 776133 1 Tablet(s) PO QAM 11/11/201211/10 Inactive Amaryl 2 mg tablet RxNorm: 517467 1 Tablet(s) PO QAM 11/11/201204/05 Inactive omeprazole 40 mg capsule,delayed release RxNorm: 407195 1 Capsu le(s) PO BID 08/14/2012 08/08/2013 Inactive Bystolic 5 mg tablet RxNorm: 766832 1 Tablet(s) PO QD 08/14/201205/03 Inactive propranolol 60 mg tablet RxNorm: 289713 Tablet(s) PO TAKE 1 TAB LET TWICE DAILY 08/01/2012 09/01/2012 Inactive Bystolic 5 mg tablet RxNorm: 054670 1 Tablet(s) PO QD 07/21/201207/02 Inactive Bystolic 5 mg tablet RxNorm: 461687 1 Tablet(s) PO QD 07/21/201207/03 Inactive Prilosec 40 mg capsule,delayed release RxNorm: 919374 1 Capsule (s) PO BID 06/24/2012 07/21/2012 Inactive buspirone 10 mg tablet RxNorm: 052309 1 Tablet(s) PO TID 05/08/2012 0 05/23/2016 Inactive Valium 10 mg tablet RxNorm: 862917 1 Tablet(s) PO BID 04/02/201207/03 Inactive Endocet 10 mg-325 mg tablet RxNorm: 5530294 1 Tablet(s) PO QID 03/0607/21/2012 Inactive as needed for severe pain Valium 10 mg tablet RxNorm: 771136 1 Tablet(s) PO BID 02/27/2012 No S top Date Active Endocet 10 mg-325 mg tablet RxNorm: 3920377 1 Tablet(s) PO QID 02/0203/27/2012 Inactive as needed for severe pain Endocet 10 mg-325 mg tablet RxNorm: 1982240 1 Tablet(s) PO QID 01/0302/26/2012 Inactive as needed for severe pain Valium 10 mg tablet RxNorm: 576317 1 Tablet(s) PO BID 01/29/2012 No S top Date Active Protonix 40 mg tablet,delayed release RxNorm: 064217 1 Tablet(s ) PO QD 01/28/2012 07/21/2012 Inactive metformin ER 500 mg tablet,extended release 24 hr RxNorm: 86 0977 1 Tablet(s) PO QD 12/26/2011 07/20/2012 Inactive Trazadone 150 mg Tablet RxNorm: 1 Tablet(s) PO QHS prn sleep 1 04/23/2012 Inactive Endocet 10 mg-325 mg tablet RxNorm: 3338680 1 Tablet(s) PO QID 12/0301/24/2012 Inactive as needed for severe pain Nexium 40 mg capsule,delayed release RxNorm: 942426 1 Capsule(s ) PO QD 12/26/2011 01/27/2012 Inactive Symbicort 160 mcg-4.5 mcg/actuation HFA Aerosol Inhaler RxNo rm: 4874477 2 Puff(s) INH BID 12/04/2011 07/21/2012 Inactive Endocet 10 mg-325 mg tablet RxNorm: 1189716 1 Tablet(s) PO QID 11/0312/25/2011 Inactive as needed for severe pain metformin ER 500 mg tablet,extended release 24 hr RxNorm: 86 0977 1 Tablet(s) PO QD 11/20/2011 12/19/2011 Inactive metformin ER 500 mg tablet,extended release 24 hr RxNorm: 86 0977 1 Tablet(s) PO QD 11/20/2011 11/19/2011 Inactive amitriptyline 100 mg tablet RxNorm: 442456 Tablet(s) PO QHS 1 a nd 1/2 tabs QHS 11/12/2011 11/13/2011 Inactive Valium 10 mg tablet RxNorm: 605702 1 Tablet(s) PO BID 11/09/2011 No S top Date Active Endocet 10 mg-325 mg tablet RxNorm: 3997044 1 Tablet(s) PO QID 10/0211/14/2011 Inactive as needed for severe pain Aricept 10 mg Tab RxNorm: 982330 1 Tablet(s) PO QD 10/05/2011 013 Inactive Valium 10 mg tablet RxNorm: 645036 1 Tablet(s) PO BID 10/05/2011 No S top Date Active Endocet 10 mg-325 mg Tab RxNorm: 9595653 1 Tablet(s) PO QID 012 10/09/2011 Inactive as needed for severe pain Aricept 10 mg Tab RxNorm: 690555 1 Tablet(s) PO QD 08/14/2011 012 Inactive Endocet 10 mg-325 mg Tab RxNorm: 6811721 1 Tablet(s) PO QID 012 08/31/2011 Inactive as needed for severe pain Valium 10 mg Tab RxNorm: 260866 1 Tablet(s) PO BID 08/02/2011 No Stop Date Active propranolol 60 mg tablet RxNorm: 216985 1 Tablet(s) PO BID 07/26/19 12 09/11/2011 Inactive amitriptyline 100 mg tablet RxNorm: 481068 Tablet(s) PO QHS 1 a nd /2 tabs QHS 06/20/2011 09/11/2011 Inactive buspirone 10 mg tablet RxNorm: 037646 1 Tablet(s) PO BID 06/18/2011 0 09/15/2011 Inactive propranolol 60 mg Tab RxNorm: 312464 1 Tablet(s) PO BID 06/18/2011 Inactive gabapentin 800 mg Tab RxNorm: 758576 1 Tablet(s) PO BID 06/18/2011 Inactive ropinirole 2 mg tablet RxNorm: 224907 1 Tablet(s) PO QHS 05/29/2011 0 08/26/2011 Inactive trimethoprim 100 mg Tab RxNorm: 632365 1 Tablet(s) PO QHS 05/29/2011 07/21/2012 Inactive Endocet 10 mg-325 mg Tab RxNorm: 7230613 1 Tablet(s) PO QID 012 2011 Inactive as needed for severe pain Valium 10 mg Tab RxNorm: 549153 1 Tablet(s) PO QHS N eed to take med as prescribed. this is a 40 day RX. No early fills. 05/17/2011 05/20/2018 Inactive propranolol 60 mg Tab RxNorm: 278140 1 Tablet(s) PO BID 04/16/2011 Inactive Neurontin 800 mg Tab RxNorm: 052309 1 Tablet(s) PO QHS 04/05/201103/2011 Inactive Endocet 10 mg-325 mg Tab RxNorm: 1189691 1 Tablet(s) PO QID 012 05/02/2011 Inactive as needed for severe pain oxycodone-acetaminophen 10 mg-325 mg tablet RxNorm: 4389796 1 Ta blet(s) PO Q4H 03/28/2011 05/19/2012 Inactive Valium 10 mg Tab RxNorm: 466327 1 Tablet(s) PO QHS 03/28/2011 012 Inactive buspirone 10 mg Tab RxNorm: 688786 1 Tablet(s) PO BID 03/27/201106/02 Inactive propranolol 60 mg Tab RxNorm: 459619 1 Tablet(s) PO BID 03/19/2011 Inactive Klor-Con M20 20 mEq Tab RxNorm: 9977842 1 Tablet(s) PO QD 03/19/2011 07/21/2012 Inactive Aricept 10 mg Tab RxNorm: 696640 1 Tablet(s) PO QD 02/27/2011 012 Inactive propranolol 60 mg Tab RxNorm: 150106 1 Tablet(s) PO BID 02/19/2011 Inactive omeprazole 40 mg capsule,delayed release RxNorm: 050309 1 Capsu le(s) PO BID 01/24/2011 05/23/2011 Inactive clindamycin 300 mg capsule RxNorm: 311926 1 Capsule(s) PO TID 01/2402/02/2011 Inactive propranolol 60 mg Tab RxNorm: 012282 1 Tablet(s) PO BID 01/22/2011 No Stop Date Active nystatin 100,000 unit/g Topical Cream RxNorm: 499844 Applicatio n TOP BID 01/15/2011 01/14/2011 Inactive to rash for 2-4 week s Diflucan 200 mg Tab RxNorm: 977326 1 Tablet(s) PO QD 01/15/201101/28 Inactive buspirone 10 mg Tab RxNorm: 977823 1 Tablet(s) PO BID 01/08/201103/05 Inactive Valium 10 mg Tab RxNorm: 145130 1 Tablet(s) PO QHS 01/05/2011 012 Inactive Diflucan 200 mg Tab RxNorm: 694161 1 Tablet(s) PO QD 01/01/201101/14 Inactive Diflucan 200 mg Tab RxNorm: 472873 1 Tablet(s) PO QD 12/18/201012/31 Inactive Valium 10 mg Tab RxNorm: 978865 1 Tablet(s) PO QHS 12/12/2010 011 Inactive Diflucan 200 mg Tab RxNorm: 765755 1 Tablet(s) PO QD 12/07/201012/18 Inactive Aricept 10 mg Tab RxNorm: 461330 1 Tablet(s) PO QD 11/20/2010 011 Inactive ropinirole 1 mg Tab RxNorm: 391172 1 Tablet(s) PO QHS 11/16/201005/03 Inactive enalapril maleate 5 mg Tab RxNorm: 768406 1 Tablet(s) PO QD 011 05/20/2018 Inactive buspirone 10 mg Tab RxNorm: 769651 1 Tablet(s) PO BID 11/16/201012/02 Inactive Valium 10 mg Tab RxNorm: 071000 1 Tablet(s) PO QHS 11/07/2010 011 Inactive Pyridium 100 mg Tab RxNorm: 1422260 1 Tablet(s) PO TID 11/02/201004/2010 Inactive Macrobid 100 mg Cap RxNorm: 7950663 1 Capsule(s) PO BID 11/02/2010 Inactive buspirone 10 mg Tab RxNorm: 268370 1 Tablet(s) PO QHS 10/18/201005/02 Inactive propranolol 60 mg Tab RxNorm: 759121 1 Tablet(s) PO BID 09/18/2010 Inactive Valium 10 mg Tab RxNorm: 395347 1 Tablet(s) PO QHS 09/05/2010 09/02/2 011 Inactive Aricept 10 mg Tab RxNorm: 247825 1 Tablet(s) PO QD 08/14/2010 011 Inactive Valium 10 mg Tab RxNorm: 523523 1 Tablet(s) PO QHS 06/26/2010 011 Inactive ropinirole 1 mg Tab RxNorm: 755833 1 Tablet(s) PO QHS 06/19/201010/02 Inactive omeprazole 40 mg Cap, delayed release RxNorm: 853412 1 Capsule( s) PO QD 06/07/2010 10/04/2010 Inactive Endocet 10 mg-325 mg Tab RxNorm: 3381762 1 Tablet(s) PO QID as needed for severe pain 06/07/2010 03/07/2011 Inactive Endocet 10 mg-325 mg Tab RxNorm: 7239717 1 Tablet(s) PO QID as needed for severe pain 05/04/2010 06/02/2010 Inactive Valium 10 mg Tab RxNorm: 508718 1 Tablet(s) PO QHS 05/01/2010 011 Inactive propranolol 60 mg Tab RxNorm: 034298 1 Tablet(s) PO BID 04/03/2010 Inactive Valium 10 mg Tab RxNorm: 257803 1 Tablet(s) PO QHS 03/28/2010 011 Inactive omeprazole 40 mg Cap, Delayed Release RxNorm: 206219 1 Capsule( s) PO QD 03/28/2010 06/06/2010 Inactive Endocet 10 mg-325 mg Tab RxNorm: 3269769 1 Tablet(s) PO QID prn ari n 03/27/2010 05/20/2018 Inactive Valium 10 mg Tab RxNorm: 485553 1 Tablet(s) PO QHS 02/20/2010 011 Inactive Diflucan 100 mg Tab RxNorm: 599740 1 Tablet(s) PO BID 01/23/201003/2009 Inactive Diflucan 100 mg Tab RxNorm: 848142 1 Tablet(s) PO BID 01/05/201001/02 Inactive Aricept 10 mg Tab RxNorm: 172083 1 Tablet(s) PO QD 12/01/2009 011 Inactive OxyContin 20 mg 12 hr Tab RxNorm: 7121280 1 Tablet(s) PO BID 200904/05/2010 Inactive oxycodone-acetaminophen 10 mg-325 mg Tab RxNorm: 5274884 1 Table t(s) PO Q4H 11/22/2009 11/26/2009 Inactive Phenergan 25 mg Tab RxNorm: 797800 1 Tablet(s) PO PRN MIGRAINE 11/0303/07/2011 Inactive Demerol 100 mg Tab RxNorm: 528221 1 Tablet(s) PO PRN MIGRAINE 11/2203/07/2011 Inactive Oxycodone-Acetaminophen 10 mg-325 mg Tab RxNorm: 6200832 1 Table t(s) PO Q4H 10/11/2009 10/15/2009 Inactive Percocet 10 mg-325 mg Tab RxNorm: 6429971 1 Tablet(s) PO Q4H 200910/24/2009 Inactive propranolol 60 mg Tab RxNorm: 303798 1 Tablet(s) PO BID 08/29/2009 Inactive Valium 10 mg Tab RxNorm: 090490 1 Tablet(s) PO QHS 08/16/2009 010 Inactive Keflex 500 mg Cap RxNorm: 071714 1 Capsule(s) PO BID 07/25/200907/31 Inactive Hydroxyzine 25 mg Tab RxNorm: 962767 1 Tablet(s) PO TID 07/25/2009 Inactive Prednisone 20 mg Tab RxNorm: 691349 1 Tablet(s) PO BID 07/25/2009 Inactive Demerol 100 mg Tab RxNorm: 546388 1 Tablet(s) PO PRN MIGRAINE 07/25 No Stop Date Active Ropinirole 1 mg Tab RxNorm: 933663 1 Tablet(s) PO HS 07/20/200902/14 Inactive Valium 10 mg Tab RxNorm: 191914 1 Tablet(s) PO QHS 07/18/2009 010 Inactive Endocet 10 mg-325 mg Tab RxNorm: 9060690 1 Tablet(s) PO TID 010 07/07/2009 Inactive Demerol 100 mg Tab RxNorm: 682789 1 Tablet(s) PO PRN MIGRAINE 06/08 No Stop Date Active Ropinirole 1 mg Tab RxNorm: 834783 1 Tablet(s) PO HS 05/16/200907/14 Inactive ipratropium-albuterol 0.5 mg-3 mg(2.5 mg base)/3 mL ne bulization soln RxNorm: 6815857 1 Unit Dose INH Q4H as needed No Start Date Active diltiazem CD 240 mg capsule,extended release 24 hr RxNorm: 8 32539 1 Capsule(s) PO QD No Start Date Active metoprolol tartrate 25 mg tablet RxNorm: 943088 1 Tablet(s) PO BID No Start Date Active MagOx 400 mg (241.3 mg magnesium) tablet RxNorm: 368222 1 Table t(s) PO BID No Start Date Active Vitamin B12 1000mcg Tablet RxNorm: 1 Tablet(s) PO QD No Start Date Active Vitamin D3 5,000 unit tablet RxNorm: 397982 1 Tablet(s) PO QD No Star t Date Active Tylenol Arthritis Pain 650 mg tablet,extended release RxNorm : 1723056 1 Tablet(s) PO Q4H No Start Date Active Lotrimin AF 2 % topical powder RxNorm: 584679 1 Application TOP BID No Start Date Active enalapril maleate 5 mg Tab RxNorm: 425339 1 Tablet(s) PO QD No Star t Date 07/20/2012 Inactive Demerol 100 mg Tab RxNorm: 374774 Tablet(s) PO PRN MIGRAINE No Star t Date 06/02/2009 Inactive metformin 500 mg tablet RxNorm: 718550 1 Tablet(s) PO QD No Start D ate 04/05/2013 Inactive Breo Ellipta 100 mcg-25 mcg/dose powder for inhalation RxNor m: 7915828 1 Puff(s) INH BID No Start Date 01/04/2016 Inactive Mag-Oxide 400 mg Tab RxNorm: 581958 1 Tablet(s) PO QD No Start Date 0 07/21/2012 Inactive Cipro 500 mg Tab RxNorm: 065822 1 Tablet(s) PO QD No Start Date 04/05 Inactive Ativan 0.5 mg tablet RxNorm: 944953 1 Tablet(s) PO TID as needed No Start Date 05/06/2019 Inactive melatonin 3 mg tablet RxNorm: 577971 2 Tablet(s) PO QHS No Start Da te 08/19/2018 Inactive buspirone 10 mg Tab RxNorm: 355935 1 Tablet(s) PO QD No Start Date Inactive sucralfate 100 mg/mL Oral Susp RxNorm: 838324 2 Teaspoon(s) PO QID No Start Date 07/21/2012 Inactive hydrocodone 5 mg-acetaminophen 325 mg tablet RxNorm: 694580 1 Tablet(s) PO Q4H as needed No Start Date 08/19/2018 Inactive Amaryl 2 mg tablet RxNorm: 051439 1 Tablet(s) PO BID No Start Date Inactive OxyContin 20 mg 12 hr Tab RxNorm: 3024897 1 Tablet(s) PO BID No Sta rt Date 11/27/2009 Inactive propranolol 40 mg tablet RxNorm: 202336 1 Tablet(s) PO QID No Start Date 01/19/2018 Inactive Trazadone 150 mg Tablet RxNorm: 1-2 Tablet(s) PO QHS prn sleep No Start Date 08/09/2010 Inactive propranolol 60 mg Tab RxNorm: 720339 1/2 Tablet(s) PO BID No Start Date 01/21/2011 Inactive insulin NPH and regular human subcutaneous RxNorm: 9999198 subcu taneous No Start Date 11/20/2018 Inactive Ativan 0.5 mg tablet RxNorm: 904663 1 Tablet(s) PO QID No Start Date 06/18/2016 Inactive Vasotec 5 mg Tab RxNorm: 605982 1 Tablet(s) PO BID No Start Date 06/2011 Inactive Toprol XL 50 mg tablet,extended release RxNorm: 792165 1 Tablet (s) PO BID No Start Date 04/05/2013 Inactive Ativan 0.5 mg tablet RxNorm: 687781 1 Tablet(s) PO TID No Start Date 05/25/2016 Inactive Klor-Con M20 20 mEq Tab RxNorm: 7348886 1 Tablet(s) PO QD No Start Date 03/19/2011 Inactive sumatriptan 100 mg tablet RxNorm: 101567 1 Tablet(s) PO at headache onset--repeat in 2hrs if remains No Start Date 07/21/2012 Inactive propranolol 60 mg Tab RxNorm: 574936 1 Tablet(s) PO BID No Start Da te 08/28/2009 Inactive Cholestyramine Light 4 gram Oral Powder RxNorm: 4387864 1 Unit Dose PO QD in water No Start Date 07/21/2012 Inactive nystatin 100,000 unit/g Topical Powder RxNorm: 199497 Applicati on TOP BID No Start Date 07/21/2012 Inactive vitamin A26-pyrph acid sublingual RxNorm: sublingual No Start Date 07/05/2013 Inactive cyclobenzaprine 5 mg tablet RxNorm: 263107 1/2-1 Tablet (s) PO TID as needed for muscle spasm No Start Date 07/18/2017 Inactive tramadol 50 mg tablet RxNorm: 928672 2 Tablet(s) PO TID as need ed for pain No Start Date 09/01/2014 Inactive aspirin 81 mg Tab RxNorm: 989581 1 Tablet(s) PO QOD No Start Date 04/2013 Inactive Vitamin B12 1000mcg Tablet RxNorm: 1 Tablet(s) PO QD No Start Date 07/18/2017 Inactive cholestyramine (with sugar) 4 gram oral powder RxNorm: 65261 3 1 Unit(s) PO QD as needed No Start Date 05/20/2018 Inactive ProAir HFA 90 mcg/Actuation Aerosol Inhaler RxNorm: 990036 2 Puff(s) INH Q4H prn shortness of breath No Start Date 07/21/2012 Inactive pravastatin 10 mg Tab RxNorm: 228589 1 Tablet(s) PO QD No Start Date 07/21/2012 Inactive gabapentin 800 mg Tab RxNorm: 966638 1 Tablet(s) PO BID No Start Da te 06/03/2011 Inactive Endocet 10 mg-325 mg Tab RxNorm: 4943868 1 Tablet(s) PO TID No Star t Date 06/02/2009 Inactive Naproxen 500 mg Tab RxNorm: 617017 1 Tablet(s) PO BID No Start Date 0 04/05/2010 Inactive Valium 10 mg Tab RxNorm: 909140 1 Tablet(s) PO BID No Start Date 07/04 Inactive enalapril maleate 5 mg Tab RxNorm: 242981 1 Tablet(s) PO QD No Star t Date 11/15/2010 Inactive doxepin 10 mg capsule RxNorm: 8539750 2 Capsule(s) PO QHS No Start Date 09/17/2018 Inactive MS Contin 15 mg Tab RxNorm: 276947 1 Tablet(s) PO BID No Start Date 0 09/18/2010 Inactive buspirone 5 mg tablet RxNorm: 517175 1 Tablet(s) PO TID No Start Da te 12/01/2013 Inactive [place] 3 Fish Oil Cap RxNorm: 1 Capsule(s) PO QD No Start Date 07/03 Inactive enalapril maleate 5 mg Tab RxNorm: 872150 1/2 Tablet(s) PO QD No St art Date 03/07/2011 Inactive Lyrica 75 mg capsule RxNorm: 215750 1 Capsule(s) PO QHS No Start Da te 02/08/2014 Inactive Lopressor 100 mg tablet RxNorm: 465685 1 Tablet(s) PO BID No Start Date 06/08/2018 Inactive Lantus Solostar U-100 Insulin 100 unit/mL (3 mL) subcu taneous pen RxNorm: 592481 45 Unit(s) SQ QAM No Start Date 05/20/2018 Inactive aspirin 81 mg tablet RxNorm: 442789 1 Tablet(s) PO QD No Start Date 0 09/14/2015 Inactive insulin NPH isophane U-100 human subcutaneous RxNorm: 632260 beckwith bcutaneous No Start Date 04/20/2019 Inactive sumatriptan 100 mg tablet RxNorm: 213220 1 Tablet(s) PO at headache onset. May repeat 1 in two hours if headache remains. Max of 2 per 24 hours No Start Date 04/01/2018 Inactive gabapentin 300 mg capsule RxNorm: 118095 1 Capsule(s) PO QHS No Sta rt Date 02/04/2018 Inactive Topamax 25 mg Tab RxNorm: 142880 Oral No Start Date 03/07/2011 In active Senokot-S 8.6 mg-50 mg Tab RxNorm: 9535142 1 Tablet(s) PO QD No Sta rt Date 03/07/2011 Inactive metformin ER 500 mg 24 hr tablet,extended release RxNorm: 18 45075 1 Tablet(s) PO QD No Start Date 05/20/2018 Inactive Symbicort 80 mcg-4.5 mcg/actuation HFA Aerosol Inhaler RxNor m: 4180054 2 Puff(s) INH BID No Start Date 04/05/2013 Inactive propranolol 60 mg Tab RxNorm: 272384 1/2 Tablet(s) PO BID No Start Date 07/21/2012 Inactive metformin ER 500 mg 24 hr tablet,extended release RxNorm: 18 78910 2 Tablet(s) PO QD No Start Date 12/16/2017 Inactive Insulin Syringe 1 mL 29 gauge x 1/2" RxNorm: 2 s yringes daily with insulin Dx: E11.65 No Start Date 10/07/2018 Inactive Amitriptyline 75 mg Tab RxNorm: 162068 1 Tablet(s) PO QHS No Start Date 10/23/2009 Inactive donepezil 10 mg Tab RxNorm: 992030 1 Tablet(s) PO QD No Start Date Inactive Lantus Solostar U-100 Insulin 100 unit/mL (3 mL) subcu taneous pen RxNorm: 048355 36 Unit(s) SQ QAM No Start Date 12/24/2017 Inactive Miacalcin 200 unit/Actuation Nasal Adger Aerosol RxNorm: 261 204 1 Adger NASAL QD Alternate nostrils each day No Start Date 04/05/2010 Inactive Amitriptyline 150 mg Tab RxNorm: 441876 1 Tablet(s) PO QHS No Start Date 01/04/2010 Inactive Bystolic 5 mg tablet RxNorm: 293119 1 Tablet(s) PO QD No Start Date 0 08/13/2012 Inactive Aricept 10 mg Tab RxNorm: 857758 1 Tablet(s) PO QD No Start Date 11/03 Inactive Lantus Solostar U-100 Insulin 100 unit/mL (3 mL) subcu taneous pen RxNorm: 235430 50 Unit(s) SQ QAM No Start Date 08/27/2018 Inactive albuterol sulfate 2.5 mg/3 mL (0.083 %) Neb Solution RxNorm: 409381 1 Unit Dose INH QID as needed No Start Date 08/23/2015 Inactive Symbicort 160 mcg-4.5 mcg/actuation HFA Aerosol Inhaler RxNo rm: 4407587 2 Puff(s) INH BID No Start Date 12/03/2011 Inactive Savella 50 mg Tab RxNorm: 928528 1 Tablet(s) PO BID No Start Date 04/2010 Inactive amitriptyline 100 mg Tab RxNorm: 681249 1 1/2 Tablet(s) PO QHS No S tart Date 06/19/2011 Inactive nystatin 100,000 unit/g Topical Cream RxNorm: 951353 Ap plication TOP BID to rash for 2-4 weeks No Start Date 01/14/2011 Inactive Trelegy Ellipta 100 mcg-62.5 mcg-25 mcg powder for inhalatio n RxNorm: 6369134 1 Puff(s) INH QD No Start Date 12/16/2017 Inactive Lyrica 150 mg capsule RxNorm: 782741 1 Capsule(s) PO QHS No Start D ate 12/04/2015 Inactive sennosides 8.6 mg tablet RxNorm: 644451 1 Tablet(s) PO BID No Start Date 09/07/2018 Inactive metformin ER 500 mg tablet,extended release 24 hr RxNorm: 86 0975 1 Tablet(s) PO QD No Start Date 10/22/2017 Inactive Fish Oil 1,000 mg Cap RxNorm: 1 Capsule(s) PO QD No Start Date 06/2011 Inactive Zyrtec 10 mg Tab RxNorm: 5594431 1 Tablet(s) PO QD No Start Date 07/03 Inactive albuterol sulfate HFA 90 mcg/actuation aerosol inhaler RxNor m: 9441657 2 Puff(s) INH Q4H as needed for cough No Start Date 09/30/2013 Inactive trazodone 150 mg tablet RxNorm: 019408 1 Tablet(s) PO QHS No Start Date 07/21/2012 Inactive Spiriva with HandiHaler 18 mcg & inhalation capsules RxNorm: 650102 1 Capsule(s) INH QD No Start Date 04/05/2013 Inactive Coreg 3.125 mg Tab RxNorm: 723654 1 Tablet(s) PO BID No Start Date Inactive Phenergan 25 mg Tab RxNorm: 198341 Tablet(s) PO PRN MIGRAINE No Sta rt Date 11/21/2009 Inactive Vitamin D 50,000 unit Cap RxNorm: 3903169 1 Capsule(s) PO QW No Sta rt Date 03/07/2011 Inactive Januvia 100 mg tablet RxNorm: 026349 1 Tablet(s) PO QD No Start Date 10/25/2015 Inactive Eliquis 5 mg tablet RxNorm: 7318717 1 Tablet(s) PO BID No Start Date 08/19/2018 Inactive Advair Diskus 500 mcg-50 mcg/Dose for Inhalation RxNorm: 005462 1 INH BID No Start Date 07/21/2012 Inactive Vitamin D3 5,000 unit tablet RxNorm: 048288 1 Tablet(s) PO QD No St art Date 07/18/2017 Inactive Amaryl 2 mg tablet RxNorm: 629912 1 Tablet(s) PO QD No Start Date 06/2015 Inactive Actos 30 mg tablet RxNorm: 032180 1 Tablet(s) PO QD No Start Date Inactive promethazine 25 mg tablet RxNorm: 712302 1 Tablet(s) PO Q4H prn N/V No Start Date 07/21/2012 Inactive ProAir HFA 90 mcg/actuation Aerosol Inhaler RxNorm: 529910 2 Puff(s) INH Q4H prn dyspnea No Start Date 07/21/2012 Inactive Dexilant 60 mg Capsule RxNorm: 693841 1 Capsule(s) PO QD No Start D ate 01/27/2012 Inactive Lantus Solostar U-100 Insulin 100 unit/mL (3 mL) subcu taneous pen RxNorm: 637345 38 Unit(s) SQ QAM No Start Date 05/20/2018 Inactive Valium 10 mg Tab RxNorm: 569899 1 Tablet(s) PO QHS AND PRN No Start Date 10/24/2009 Inactive ZOFRAN ODT 8 mg disintegrating tablet RxNorm: 765975 1 Tablet(s ) PO Q6H No Start [...] Date S ervice Location MICROALBUMIN URINE RANDOM 21470 MICRL MG/L 14.9 MG/L Unknown MICROALBUMIN URINE RANDOM 89610 XM.ALB/CRE 6.1 MG/GCR Unknown MICROALBUMIN URINE RANDOM 14183 CREAT MG/D 243 MG/DL Unknown MICROALBUMIN URINE RANDOM 30981 CRE/100 2.43 G/L 03/05 Unknown PROTEIN/CREAT URINE WITH RATIO 54509|22093 PROT R U 14 MG/D L 04/01/2014 Unknown PROTEIN/CREAT URINE WITH RATIO 36290|20866 CREAT R U 254 MG/ DL 04/01/2014 Unknown PROTEIN/CREAT URINE WITH RATIO 86083|54679 XRATIO P/C 55 MG/ G 04/01/2014 Unknown URINALYSIS 56300 PROTEIN UR NEG 04/28/2010 Unknown URINALYSIS 53148 HEMGLBN UR NEG 04/28/2010 Unknown URINALYSIS 24687 GLUCOSE UR NEG 04/28/2010 Unknown URINALYSIS 28902 KETONES UR NEG 04/28/2010 Unknown URINALYSIS 76618 PH U 5.5 04/28/2010 Unknown URINALYSIS 05693 SP GR U 1.025 04/28/2010 Unknown URINALYSIS 47937 BILRUBN UR NEG 04/28/2010 Unknown URINALYSIS 66202 LEUKO UR 2+ 04/28/2010 Unknown URINALYSIS 70544 NITRITE UR NEG 04/28/2010 Unknown MICR CUL? [id number] WBC/HPF 6-10 04/28/2010 Unknown MICR CUL? [id number] RBC/HPF 0-5 04/28/2010 Unknown MICR CUL? [id number] HYAL CAST 16-25 04/28/2010 Unknown MICR CUL? [id number] SP TO YOLIE? NO 04/28/2010 Unknown MICR CUL? [id number] APPEAR UR NORMAL 04/28/2010 Unknown MICR CUL? [id number] SQ EPI/LPF FEW 04/28/2010 Unknown Procedures Procedure Codes Date URINALYSIS NONAUTO W/O SCOPE CPT-4: 94181 04/16/2019 URINE CULTURE/ COLONY COUNT CPT-4: 17746 04/16/2019 CEFTRIAXONE SODIUM INJECTION CPT-4: J0696 04/16/2019 THER/PROPH/DIAG INJ SC/IM CPT-4: 50391 04/16/2019 DRAIN/INJECT JOINT/BURSA CPT-4: 41956 01/22/2019 TRIAMCINOLONE ACET INJ NOS CPT-4: J3301 01/22/2019 DEXAMETHASONE SODIUM PHOS CPT-4: J1100 01/22/2019 URINE CULTURE/ COLONY COUNT CPT-4: 53426 01/07/2019 URINALYSIS NONAUTO W/O SCOPE CPT-4: 41420 01/07/2019 CEFTRIAXONE SODIUM INJECTION CPT-4: J0696 01/07/2019 THER/PROPH/DIAG INJ SC/IM CPT-4: 09362 01/07/2019 FLU VACC PRSV FREE INC ANTIG 65 AND OLDER CPT-4: 22407 12/24/2018 FLU VACC PRSV FREE INC ANTIG 65 AND OLDER CPT-4: 43446 12/24/2018 ADMIN INFLUENZA VIRUS VAC CPT-4: G0008 12/24/2018 THER/PROPH/DIAG INJ SC/IM CPT-4: 41276 11/04/2018 KETOROLAC TROMETHAMINE INJ CPT-4: J1885 11/04/2018 PROMETHAZINE HCL INJECTION CPT-4: J2550 11/04/2018 PPPS, subseq visit CPT-4: G0439 09/18/2018 THER/PROPH/DIAG INJ SC/IM CPT-4: 83928 04/01/2018 KETOROLAC TROMETHAMINE INJ CPT-4: J1885 04/01/2018 PROMETHAZINE HCL INJECTION CPT-4: J2550 04/01/2018 URINE CULTURE/ COLONY COUNT CPT-4: 52389 03/17/2018 URINALYSIS NONAUTO W/O SCOPE CPT-4: 84709 03/17/2018 FLU VACC PRSV FREE INC ANTIG 65 AND OLDER CPT-4: 95171 12/17/2017 PNEUMOCOCCAL VACC 23 RANDALL IM CPT-4: 60064 12/17/2017 ADMIN INFLUENZA VIRUS VAC CPT-4: G0008 12/17/2017 ADMIN PNEUMOCOCCAL VACCINE CPT-4: G0009 12/17/2017 PPPS, subseq visit CPT-4: G0439 09/17/2017 THER/PROPH/DIAG INJ SC/IM CPT-4: 39529 08/26/2017 KETOROLAC TROMETHAMINE INJ CPT-4: J1885 08/26/2017 PROMETHAZINE HCL INJECTION CPT-4: J2550 08/26/2017 URINALYSIS NONAUTO W/O SCOPE CPT-4: 02915 07/19/2017 URINE CULTURE/ COLONY COUNT CPT-4: 04862 07/19/2017 CEFTRIAXONE SODIUM INJECTION CPT-4: J0696 07/19/2017 THER/PROPH/DIAG INJ SC/IM CPT-4: 72721 07/19/2017 THER/PROPH/DIAG INJ SC/IM CPT-4: 20418 07/19/2017 TRIAMCINOLONE ACET INJ NOS CPT-4: J3301 07/19/2017 PRESCRIP TRANSMIT VIA ERX SY CPT-4: G8553 05/07/2017 PRESCRIP TRANSMIT VIA ERX SY CPT-4: G8553 02/22/2017 PRESCRIP TRANSMIT VIA ERX SY CPT-4: G8553 01/23/2017 FLU VACC PRSV FREE INC ANTIG 65 AND OLDER CPT-4: 47129 12/20/2016 PNEUMOCOCCAL VACC 13 RANDALL IM CPT-4: 09190 12/20/2016 ADMIN INFLUENZA VIRUS VAC CPT-4: G0008 12/20/2016 ADMIN PNEUMOCOCCAL VACCINE CPT-4: G0009 12/20/2016 URINALYSIS NONAUTO W/O SCOPE CPT-4: 94119 10/08/2016 URINE CULTURE/ COLONY COUNT CPT-4: 83797 10/08/2016 PRESCRIP TRANSMIT VIA ERX SY CPT-4: G8553 10/08/2016 PRESCRIP TRANSMIT VIA ERX SY CPT-4: G8553 09/19/2016 PRESCRIP TRANSMIT VIA ERX SY CPT-4: G8553 08/20/2016 PRESCRIP TRANSMIT VIA ERX SY CPT-4: G8553 02/29/2016 KETOROLAC TROMETHAMINE INJ CPT-4: J1885 02/02/2016 THER/PROPH/DIAG INJ SC/IM CPT-4: 39250 02/02/2016 PROMETHAZINE HCL INJECTION CPT-4: J2550 02/02/2016 PRESCRIP TRANSMIT VIA ERX SY CPT-4: G8553 02/02/2016 FLU VACC PRSV FREE INC ANTIG 65 AND OLDER CPT-4: 02261 01/05/2016 PPPS, subseq visit CPT-4: G0439 01/05/2016 ADMIN INFLUENZA VIRUS VAC CPT-4: G0008 01/05/2016 URINE CULTURE/ COLONY COUNT CPT-4: 22014 12/05/2015 URINALYSIS NONAUTO W/O SCOPE CPT-4: 13982 12/05/2015 PRESCRIP TRANSMIT VIA ERX SY CPT-4: G8553 12/05/2015 PRESCRIP TRANSMIT VIA ERX SY CPT-4: G8553 10/26/2015 URINALYSIS NONAUTO W/O SCOPE CPT-4: 47799 10/05/2015 URINE CULTURE/ COLONY COUNT CPT-4: 70382 10/05/2015 PRESCRIP TRANSMIT VIA ERX SY CPT-4: G8553 10/05/2015 SERVICE REQUIRED FOR PMD CPT-4: G0372 09/15/2015 PRESCRIP TRANSMIT VIA ERX SY CPT-4: G8553 09/15/2015 SPECIAL REPORTS OR FORMS CPT-4: 49289 08/25/2015 PRESCRIP TRANSMIT VIA ERX SY CPT-4: G8553 07/05/2015 URINALYSIS NONAUTO W/O SCOPE CPT-4: 59866 03/30/2015 ASSAY, GLUCOSE, BLOOD QUANT CPT-4: 00936 03/30/2015 URINE CULTURE/ COLONY COUNT CPT-4: 29895 03/30/2015 PRESCRIP TRANSMIT VIA ERX SY CPT-4: G8553 03/30/2015 PRESCRIP TRANSMIT VIA ERX SY CPT-4: G8553 02/03/2015 FLU VACC PRSV FREE INC ANTIG 65 AND OLDER CPT-4: 92849 12/29/2014 ADMIN INFLUENZA VIRUS VAC CPT-4: G0008 12/29/2014 PRESCRIP TRANSMIT VIA ERX SY CPT-4: G8553 12/29/2014 PRESCRIP TRANSMIT VIA ERX SY CPT-4: G8553 09/02/2014 PROTEIN/CREAT URINE WITH RATIO CPT-4: 94440|[id number] 5 MICROALBUMIN QUANTITATIVE CPT-4: 23904 04/01/2014 PRESCRIP TRANSMIT VIA ERX SY CPT-4: G8553 03/16/2014 PRESCRIP TRANSMIT VIA ERX SY CPT-4: G8553 03/09/2014 THER/PROPH/DIAG INJ SC/IM CPT-4: 84574 03/01/2014 TRIAMCINOLONE ACET INJ NOS CPT-4: J3301 03/01/2014 PRESCRIP TRANSMIT VIA ERX SY CPT-4: G8553 02/09/2014 URINE CULTURE/ COLONY COUNT CPT-4: 02170 10/30/2013 URINALYSIS NONAUTO W/O SCOPE CPT-4: 73850 10/21/2013 URINE CULTURE/ COLONY COUNT CPT-4: 09388 10/21/2013 DESTRUCT PREMALG LESION (Cryosurgery) CPT-4: 98496 PRESCRIP TRANSMIT VIA ERX SY CPT-4: G8553 10/05/2013 URINALYSIS NONAUTO W/O SCOPE CPT-4: 08607 08/04/2013 URINE CULTURE/ COLONY COUNT CPT-4: 91560 08/04/2013 PRESCRIP TRANSMIT VIA ERX SY CPT-4: G8553 08/04/2013 THER/PROPH/DIAG INJ SC/IM CPT-4: 89089 07/13/2013 TRIAMCINOLONE ACET INJ NOS CPT-4: J3301 07/13/2013 PRESCRIP TRANSMIT VIA ERX SY CPT-4: G8553 05/27/2013 URINALYSIS NONAUTO W/O SCOPE CPT-4: 67345 05/25/2013 URINE CULTURE/ COLONY COUNT CPT-4: 78090 05/25/2013 THER/PROPH/DIAG INJ SC/IM CPT-4: 86131 05/04/2013 VITAMIN B12 INJECTION CPT-4: J3420 05/04/2013 THER/PROPH/DIAG INJ SC/IM CPT-4: 57004 04/17/2013 VITAMIN B12 INJECTION CPT-4: J3420 04/17/2013 THER/PROPH/DIAG INJ SC/IM CPT-4: 04790 04/17/2013 METHYLPREDNISOLONE 40 MG INJ CPT-4: J1030 04/17/2013 TRIAMCINOLONE ACET INJ NOS CPT-4: J3301 04/17/2013 URINALYSIS NONAUTO W/O SCOPE CPT-4: 49694 04/06/2013 URINE CULTURE/ COLONY COUNT CPT-4: 88803 04/06/2013 PRESCRIP TRANSMIT VIA ERX SY CPT-4: G8553 04/06/2013 KETOROLAC TROMETHAMINE INJ CPT-4: J1885 06/25/2012 PROMETHAZINE HCL INJECTION CPT-4: J2550 06/25/2012 THER/PROPH/DIAG INJ SC/IM CPT-4: 61933 06/25/2012 THER/PROPH/DIAG INJ SC/IM CPT-4: 89591 06/24/2012 METHYLPREDNISOLONE 40 MG INJ CPT-4: J1030 06/24/2012 TRIAMCINOLONE ACET INJ NOS CPT-4: J3301 06/24/2012 URINE CULTURE/ COLONY COUNT CPT-4: 63415 06/24/2012 THER/PROPH/DIAG INJ SC/IM CPT-4: 23515 05/20/2012 KETOROLAC TROMETHAMINE INJ CPT-4: J1885 05/20/2012 THER/PROPH/DIAG INJ SC/IM CPT-4: 37399 05/20/2012 PROMETHAZINE HCL INJECTION CPT-4: J2550 05/20/2012 DRAIN/INJECT JOINT/BURSA CPT-4: 30302 02/13/2012 METHYLPREDNISOLONE 40 MG INJ CPT-4: J1030 02/13/2012 TRIAMCINOLONE ACET INJ NOS CPT-4: J3301 02/13/2012 THER/PROPH/DIAG INJ SC/IM CPT-4: 33245 11/14/2011 METHYLPREDNISOLONE 40 MG INJ CPT-4: J1030 11/14/2011 TRIAMCINOLONE ACET INJ NOS CPT-4: J3301 11/14/2011 THER/PROPH/DIAG INJ SC/IM CPT-4: 18564 09/12/2011 KETOROLAC TROMETHAMINE INJ CPT-4: J1885 09/12/2011 THER/PROPH/DIAG INJ SC/IM CPT-4: [address] 08/09/2011 METHYLPREDNISOLONE 40 MG INJ CPT-4: J1030 08/09/2011 TRIAMCINOLONE ACET INJ NOS CPT-4: J3301 08/09/2011 URINE CULTURE/ COLONY COUNT CPT-4: 16303 07/03/2011 URINE CULTURE/ COLONY COUNT CPT-4: 43301 06/04/2011 THER/PROPH/DIAG INJ SC/IM CPT-4: 99798 05/03/2011 METHYLPREDNISOLONE 40 MG INJ CPT-4: J1030 05/03/2011 TRIAMCINOLONE ACET INJ NOS CPT-4: J3301 05/03/2011 URINALYSIS NONAUTO W/O SCOPE CPT-4: 92291 01/24/2011 URINE CULTURE/ COLONY COUNT CPT-4: 26307 01/24/2011 FLUZONE, 5ML (Medicare) CPT-4: Q2038 01/02/2011 ADMIN INFLUENZA VIRUS VAC CPT-4: G0008 01/02/2011 ASSAY, GLUCOSE, BLOOD QUANT CPT-4: 66605 12/07/2010 URINE CULTURE/ COLONY COUNT CPT-4: 46637 11/02/2010 THER/PROPH/DIAG INJ SC/IM CPT-4: 01214 10/18/2010 METHYLPREDNISOLONE 40 MG INJ CPT-4: J1030 10/18/2010 TRIAMCINOLONE ACET INJ NOS CPT-4: J3301 10/18/2010 TRIAMCINOLONE ACET INJ NOS CPT-4: J3301 05/11/2010 METHYLPREDNISOLONE 40 MG INJ CPT-4: J1030 05/11/2010 THER/PROPH/DIAG INJ SC/IM CPT-4: 01973 05/11/2010 TRIAMCINOLONE ACET INJ NOS CPT-4: J3301 02/09/2010 METHYLPREDNISOLONE 40 MG INJ CPT-4: J1030 02/09/2010 THER/PROPH/DIAG INJ SC/IM CPT-4: 38002 02/09/2010 MD SERVICE REQUIRED FOR PMD CPT-4: G0372 02/09/2010 FLU VACCINE 3 YRS & > IM UP 64 CPT-4: 23422 0 PNEUMOCOCCAL VACC 23 RANDALL IM CPT-4: 24892 12/07/2009 ADMIN INFLUENZA VIRUS VAC CPT-4: G0008 12/07/2009 ADMIN PNEUMOCOCCAL VACCINE CPT-4: G0009 12/07/2009 TRIAMCINOLONE ACET INJ NOS CPT-4: J3301 05/26/2009 THER/PROPH/DIAG INJ SC/IM CPT-4: 38027 05/26/2009 METHYLPREDNISOLONE 80 MG INJ CPT-4: J1040 [...] 1: 114/72 Code: 8480-6 BMI: 37.8 Code: 81756-7 Heart Rate 1: 72 bpm Height: 5'3" [...] 1: 106/68 Code: 8480-6 BMI: 35.7 Code: 46695-9 Heart Rate 1: 72 bpm Height: 5'4" Respiratory Rate: 20 bpm SpO2: 98% Tempera ture: 36.7 (C) / 98.0 (F) Weight: 208 lbs 04/16/2018 Blood Pressure 1: 132/82 Code: 8480-6 BMI: 37.9 Code: 70869-8 Heart Rate 1: 72 bpm Height: 5'4" Respiratory Rate: 20 bpm SpO2: 96% Tempera ture: 37.1 (C) / 98.8 (F) Weight: 221 lbs 04/01/2018 Blood Pressure 1: 150/90 Code: 8480-6 Heart Rate 1: 72 bpm Respiratory Rate: 22 bpm SpO2: 95% Temperature: 36.4 (C) / 97.6 (F) We ight: 216 lbs 03/06/2018 Blood Pressure 1: 126/78 Code: 8480-6 BMI: 37.4 Code: 82811-8 Heart Rate 1: 68 bpm Height: 5'4" [...] ight: 222 lbs 12/25/2017 BMI: 37.8 Code: 03462-1 Heart Rate 1: 76 bpm Height: 5 '4" Respiratory Rate: 20 bpm SpO2: 96% Temperature: 37.3 (C) / 99.2 (F) Weight: 220 lbs 12/17/2017 Blood Pressure 1: 132/78 Code: 8480-6 BMI: 37.2 Code: 68598-3 Heart Rate 1: 88 bpm Height: 5'4" Respiratory Rate: 20 bpm SpO2: 96% Tempera ture: 37.3 (C) / 99.2 (F) Weight: 217 lbs 10/30/2017 Blood Pressure 1: 114/68 Code: 8480-6 BMI: 36.4 Code: 11633-9 Heart Rate 1: 72 bpm Height: 5'4" Respiratory Rate: 22 bpm SpO2: 96% Tempera ture: 36.8 (C) / 98.2 (F) Weight: 212 lbs 10/23/2017 Blood Pressure 1: 124/78 Code: 8480-6 Heart Rate 1: 72 bpm Respiratory Rate: 24 bpm SpO2: 94% Temperature: 36.6 (C) / 97.9 (F) We ight: 212 lbs 09/17/2017 Blood Pressure 1: 128/82 Code: 8480-6 BMI: 37.4 Code: 95967-7 Heart Rate 1: 72 bpm Height: 5'4" Respiratory Rate: 20 bpm SpO2: 96% Tempera ture: 37.0 (C) / 98.6 (F) Weight: 218 lbs 07/19/2017 Blood Pressure 1: 136/84 Code: 8480-6 BMI: 36.6 Code: 01281-5 Heart Rate 1: 88 bpm Height: 5'4" Respiratory Rate: 20 bpm SpO2: 97% Tempera ture: 36.7 (C) / 98.0 (F) Weight: 213 lbs 05/29/2017 Blood Pressure 1: 136/82 Code: 8480-6 BMI: 36.7 Code: 97787-6 Heart Rate 1: 72 bpm Height: 5'4" Respiratory Rate: 20 bpm SpO2: 97% Tempera ture: 36.9 (C) / 98.4 (F) Weight: 214 lbs 05/07/2017 Blood Pressure 1: 122/80 Code: 8480-6 BMI: 37.1 Code: 13080-7 Heart Rate 1: 80 bpm Height: 5'4" Respiratory Rate: 24 bpm SpO2: 96% Tempera ture: 36.1 (C) / 97.0 (F) Weight: 216 lbs 03/18/2017 BMI: 36.7 Code: 69246-4 Heart Rate 1: 80 bpm Height: 5 '4" Respiratory Rate: 22 bpm SpO2: 95% Temperature: 36.9 (C) / 98.4 (F) Weight: 214 lbs 02/27/2017 Blood Pressure 1: 146/94 Code: 8480-6 BMI: 36.6 Code: 82242-3 Heart Rate 1: 76 bpm Height: 5'4" Respiratory Rate: 22 bpm SpO2: 97% Tempera ture: 36.6 (C) / 97.9 (F) Weight: 213 lbs 02/22/2017 Blood Pressure 1: 126/90 Code: 8480-6 BMI: 36.4 Code: 36712-3 Heart Rate 1: 84 bpm Height: 5'4" Respiratory Rate: 22 bpm SpO2: 95% Tempera ture: 36.9 (C) / 98.4 (F) Weight: 212 lbs 01/23/2017 Blood Pressure 1: 146/82 Code: 8480-6 BMI: 37.6 Code: 65972-7 Heart Rate 1: 96 bpm Height: 5'4" Respiratory Rate: 20 bpm SpO2: 96% Tempera ture: 36.9 (C) / 98.4 (F) Weight: 219 lbs 12/20/2016 Blood Pressure 1: 126/70 Code: 8480-6 BMI: 37.2 Code: 99028-9 Heart Rate 1: 76 bpm Height: 5'4" Respiratory Rate: 22 bpm SpO2: 95% Tempera ture: 36.6 (C) / 97.8 (F) Weight: 217 lbs 10/08/2016 Blood Pressure 1: 128/82 Code: 8480-6 BMI: 36.9 Code: 08417-8 Heart Rate 1: 76 bpm Height: 5'4" Respiratory Rate: 20 bpm SpO2: 95% Tempera ture: 37.0 (C) / 98.6 (F) Weight: 215 lbs 09/19/2016 Blood Pressure 1: 144/78 Code: 8480-6 BMI: 37.8 Code: 44806-4 Heart Rate 1: 76 bpm Height: 5'4" Respiratory Rate: 22 bpm SpO2: 95% Tempera ture: 37.0 (C) / 98.6 (F) Weight: 220 lbs 08/20/2016 Blood Pressure 1: 140/86 Code: 8480-6 BMI: 37.4 Code: 11388-1 Heart Rate 1: 80 bpm Height: 5'4" Respiratory Rate: 20 bpm SpO2: 95% Tempera ture: 36.9 (C) / 98.4 (F) Weight: 218 lbs 06/19/2016 Blood Pressure 1: 124 Code: 8480-6 BMI: 37.8 Code: 99435-6 Heart Rate 1: 74 bpm Height: 5'4" Respiratory Rate: 24 bpm SpO2: 96% Tempera ture: 36.9 (C) / 98.4 (F) Weight: 220 lbs 06/04/2016 Blood Pressure 1: 124/78 Code: 8480-6 BMI: 38.8 Code: 90039-6 Heart Rate 1: 72 bpm Height: 5'4" Respiratory Rate: 24 bpm SpO2: 95% Tempera ture: 36.8 (C) / 98.2 (F) Weight: 226 lbs 05/02/2016 Blood Pressure 1: 136/90 Code: 8480-6 BMI: 37.6 Code: 09528-6 Heart Rate 1: 72 bpm Height: 5'4" Respiratory Rate: 24 bpm SpO2: 96% Tempera ture: 36.9 (C) / 98.4 (F) Weight: 219 lbs 04/03/2016 Blood Pressure 1: 126/78 Code: 8480-6 BMI: 38.1 Code: 93144-2 Heart Rate 1: 72 bpm Height: 5'4" Respiratory Rate: 22 bpm SpO2: 94% Tempera ture: 36.9 (C) / 98.4 (F) Weight: 222 lbs 02/29/2016 Blood Pressure 1: 132/78 Code: 8480-6 Heart Rate 1: 78 bpm Height: Respiratory Rate: 24 bpm SpO2: 95% Temperature: 36.4 (C) / 97.6 (F) We ight: 02/02/2016 Blood Pressure 1: 124/78 Code: 8480-6 BMI: 37.6 Code: 07780-9 Heart Rate 1: 76 bpm Height: 5'4" Respiratory Rate: 20 bpm SpO2: 95% Tempera ture: 36.8 (C) / 98.2 (F) Weight: 219 lbs 01/05/2016 Blood Pressure 1: 126/70 Code: 8480-6 BMI: 37.1 Code: 86931-1 Heart Rate 1: 76 bpm Height: 5'4" Respiratory Rate: 20 bpm Temperature: 36 .6 (C) / 97.8 (F) Weight: 216 lbs 12/05/2015 Blood Pressure 1: 126/72 Code: 8480-6 BMI: 36.9 Code: 15590-1 Heart Rate 1: 92 bpm Height: 5'4" Respiratory Rate: 20 bpm Temperature: 36 .7 (C) / 98.1 (F) Weight: 215 lbs 10/26/2015 Blood Pressure 1: 142/80 Code: 8480-6 BMI: 36.4 Code: 33207-9 Heart Rate 1: 82 bpm Height: 5'4" Respiratory Rate: 24 bpm SpO2: 92% Tempera ture: 35.9 (C) / 96.7 (F) Weight: 212 lbs 10/05/2015 Blood Pressure 1: 136/82 Code: 8480-6 Heart Rate 1: 80 bpm Respiratory Rate: 18 bpm SpO2: 98% Temperature: 35.7 (C) / 96.3 (F) We ight: 214 lbs 09/15/2015 Blood Pressure 1: 116/80 Code: 8480-6 BMI: 34.6 Code: 27908-1 Heart Rate 1: 76 bpm Height: 5'6" Respiratory Rate: 20 bpm Temperature: 36 .6 (C) / 97.9 (F) Weight: 211 lbs 08/24/2015 Blood Pressure 1: 124/80 Code: 8480-6 BMI: 34.1 Code: 32952-0 Heart Rate 1: 68 bpm Height: 5'6" Respiratory Rate: 20 bpm Temperature: 36 .8 (C) / 98.3 (F) Weight: 208 lbs 07/05/2015 Blood Pressure 1: 114/78 Code: 8480-6 BMI: 33.9 Code: 19192-2 Heart Rate 1: 80 bpm Height: 5'6" Respiratory Rate: 20 bpm Temperature: 36 .6 (C) / 97.9 (F) Weight: 207 lbs 06/06/2015 Blood Pressure 1: 122/78 Code: 8480-6 BMI: 34.1 Code: 78937-5 Heart Rate 1: 76 bpm Height: 5'6" Respiratory Rate: 24 bpm SpO2: 96% Tempera ture: 36.4 (C) / 97.6 (F) Weight: 208 lbs 05/23/2015 Blood Pressure 1: 124/78 Code: 8480-6 Heart Rate 1: 76 bpm Respiratory Rate: 24 bpm SpO2: 93% Temperature: 36.8 (C) / 98.2 (F) We ight: 212 lbs 05/05/2015 Blood Pressure 1: 136/80 Code: 8480-6 BMI: 35.4 Code: 08994-2 Heart Rate 1: 76 bpm Height: 5'6" Respiratory Rate: 28 bpm Temperature: 37 .0 (C) / 98.6 (F) Weight: 216 lbs 03/30/2015 Blood Pressure 1: 132/86 Code: 8480-6 BMI: 35.2 Code: 57635-2 Heart Rate 1: 84 bpm Height: 5'6" Respiratory Rate: 24 bpm Temperature: 36 .7 (C) / 98.0 (F) Weight: 215 lbs 02/03/2015 Blood Pressure 1: 122/74 Code: 8480-6 BMI: 35.7 Code: 20832-5 Heart Rate 1: 84 bpm Height: 5'6" Respiratory Rate: 20 bpm Temperature: 36 .9 (C) / 98.5 (F) Weight: 218 lbs 12/29/2014 Blood Pressure 1: 132/80 Code: 8480-6 BMI: 35.1 Code: 61954-4 Heart Rate 1: 80 bpm Height: 5'6" Respiratory Rate: 20 bpm Temperature: 36 .6 (C) / 97.8 (F) Weight: 214 lbs 09/02/2014 Blood Pressure 1: 128/92 Code: 8480-6 BMI: 34.7 Code: 61706-8 Heart Rate 1: 84 bpm Height: 5'6" Respiratory Rate: 26 bpm Temperature: 36 .8 (C) / 98.2 (F) Weight: 212 lbs 08/25/2014 Blood Pressure 1: 124/80 Code: 8480-6 BMI: 34.7 Code: 40776-2 Heart Rate 1: 78 bpm Height: 5'6" Respiratory Rate: 22 bpm SpO2: 97% Tempera ture: 36.6 (C) / 97.8 (F) Weight: 212 lbs 04/01/2014 Blood Pressure 1: 142/84 Code: 8480-6 BMI: 34.4 Code: 76250-6 Heart Rate 1: 74 bpm Height: 5'5" Respiratory Rate: 20 bpm Temperature: 36 .4 (C) / 97.6 (F) Weight: 207 lbs 03/16/2014 Blood Pressure 1: 142/90 Code: 8480-6 BMI: 34.6 Code: 31277-6 Heart Rate 1: 76 bpm Height: 5'5" Respiratory Rate: 24 bpm Temperature: 36 .5 (C) / 97.7 (F) Weight: 208 lbs 03/09/2014 Blood Pressure 1: 116/70 Code: 8480-6 BMI: 35.3 Code: 98157-1 Heart Rate 1: 72 bpm Height: 5'5" [...] 1: 128/86 Code: 8480-6 BMI: 34.3 Code: 98047-2 Heart Rate 1: 84 bpm Height: 5'5" Respiratory Rate: 20 bpm Temperature: 36 .7 (C) / 98.0 (F) Weight: 206 lbs 12/23/2013 Blood Pressure 1: 122/70 Code: 8480-6 BMI: 34.3 Code: 50757-1 Heart Rate 1: 68 bpm Height: 5'5" Respiratory Rate: 20 bpm Temperature: 36 .8 (C) / 98.2 (F) Weight: 206 lbs 10/05/2013 Blood Pressure 1: 118/76 Code: 8480-6 BMI: 34.1 Code: 40329-1 Heart Rate 1: 68 bpm Height: 5'5" Respiratory Rate: 20 bpm SpO2: 98% Tempera ture: 36.6 (C) / 97.9 (F) Weight: 205 lbs 08/04/2013 Blood Pressure 1: 126/82 Code: 8480-6 BMI: 33.3 Code: 85574-3 Heart Rate 1: 76 bpm Height: 5'5" Respiratory Rate: 20 bpm Temperature: 36 .8 (C) / 98.2 (F) Weight: 200 lbs 07/03/2013 Blood Pressure 1: 124/82 Code: 8480-6 BMI: 33.3 Code: 53754-0 Heart Rate 1: 72 bpm Height: 5'5" Respiratory Rate: 22 bpm Temperature: 36 .1 (C) / 97.0 (F) Weight: 200 lbs 05/27/2013 Blood Pressure 1: 126/82 Code: 8480-6 Heart Rate 1: 74 bpm Respiratory Rate: 20 bpm Temperature: 36.0 (C) / 96.8 (F) Weight: 199 lbs 04/06/2013 Blood Pressure 1: 118/80 Code: 8480-6 BMI: 35.2 Code: 92973-8 Heart Rate 1: 80 bpm Height: 5'4" Respiratory Rate: 20 bpm Temperature: 37 .4 (C) / 99.3 (F) Weight: 205 lbs 11/10/2012 Blood Pressure 1: 128/82 Code: 8480-6 Heart Rate 1: 84 bpm Respiratory Rate: 20 bpm Temperature: 36.7 (C) / 98.0 (F) Weight: 199 lbs 09/02/2012 Blood Pressure 1: 116/82 Code: 8480-6 BMI: 34.2 Code: 19490-6 Heart Rate 1: 88 bpm Height: 5'4" Respiratory Rate: 22 bpm Temperature: 36 .6 (C) / 97.8 (F) Weight: 199 lbs 08/04/2012 Blood Pressure 1: 128/74 Code: 8480-6 BMI: 34.0 Code: 18994-5 Heart Rate 1: 92 bpm Height: 5'4" Respiratory Rate: 20 bpm Temperature: 36 .4 (C) / 97.5 (F) Weight: 198 lbs 07/21/2012 Blood Pressure 1: 124/86 Code: 8480-6 Heart Rate 1: 116 bpm Respiratory Rate: 24 bpm Temperature: 36.8 (C) / 98.2 (F) 07/02/2012 Blood Pressure 1: 116/ Code: 8480-6 BMI: 33.6 Code: 71696-1 Heart Rate 1: 76 bpm Height: 5'4" Respiratory Rate: 20 bpm Temperature: 36 .8 (C) / 98.3 (F) Weight: 196 lbs 06/24/2012 Blood Pressure 1: 124/80 Code: 8480-6 BMI: 34.3 Code: 57128-3 Heart Rate 1: 72 bpm Height: 5'4" SpO2: 96% Temperature: 36.3 (C) / 97.3 (F) Weight: 200 lbs 05/20/2012 Blood Pressure 1: 11688 Code: 8480-6 BMI: 33.8 Code: 08268-2 Heart Rate 1: 80 bpm Height: 5'4" Respiratory Rate: 22 bpm Temperature: 36 .9 (C) / 98.4 (F) Weight: 197 lbs 05/08/2012 Blood Pressure 1: 128/86 Code: 8480-6 BMI: 33.8 Code: 56330-0 Heart Rate 1: 76 bpm Height: 5'4" Respiratory Rate: 26 bpm SpO2: 95% Tempera ture: 36.1 (C) / 97.0 (F) Weight: 197 lbs 04/22/2012 Blood Pressure 1: 106/64 Code: 8480-6 BMI: 33.8 Code: 25985-2 Heart Rate 1: 70 bpm Height: 5'4" Temperature: 36.1 (C) / 97.0 (F) Weight: 197 lbs 02/13/2012 Blood Pressure 1: 126/82 Code: 8480-6 BMI: 34.7 Code: 76287-7 Heart Rate 1: 64 bpm Height: 5'4" Respiratory Rate: 20 bpm Temperature: 36 .6 (C) / 97.8 (F) Weight: 202 lbs 01/28/2012 Blood Pressure 1: 116/80 Code: 8480-6 BMI: 34.7 Code: 20866-7 Heart Rate 1: 76 bpm Height: 5'4" Respiratory Rate: 20 bpm Temperature: 36 .8 (C) / 98.3 (F) Weight: 202 lbs 12/26/2011 Blood Pressure 1: 132/82 Code: 8480-6 BMI: 36.0 Code: 32006-0 Heart Rate 1: 68 bpm Height: 5'4" Respiratory Rate: 22 bpm Temperature: 36 .7 (C) / 98.0 (F) Weight: 210 lbs 11/14/2011 Blood Pressure 1: 124/80 Code: 8480-6 BMI: 36.4 Code: 19708-3 Heart Rate 1: 76 bpm Height: 5'4" Respiratory Rate: 20 bpm Temperature: 36 .8 (C) / 98.2 (F) Weight: 212 lbs 09/12/2011 Blood Pressure 1: 108/74 Code: 8480-6 BMI: 37.1 Code: 10959-8 Heart Rate 1: 72 bpm Height: 5'4" Respiratory Rate: 20 bpm Temperature: 37 .0 (C) / 98.6 (F) Weight: 216 lbs 08/15/2011 Blood Pressure 1: 122/80 Code: 8480-6 BMI: 36.9 Code: 71902-4 Heart Rate 1: 76 bpm Height: 5'4" Respiratory Rate: 20 bpm Temperature: 36 .2 (C) / 97.1 (F) Weight: 215 lbs 08/09/2011 Blood Pressure 1: 112/78 Code: 8480-6 BMI: 36.9 Code: 58706-1 Heart Rate 1: 68 bpm Height: 5'4" Respiratory Rate: 20 bpm Temperature: 36 .7 (C) / 98.0 (F) Weight: 215 lbs 07/03/2011 Blood Pressure 1: 140/94 Code: 8480-6 BMI: 36.2 Code: 16671-2 Heart Rate 1: 68 bpm Height: 5'4" Temperature: 36.0 (C) / 96.8 (F) Weight: 211 lbs 06/04/2011 Blood Pressure 1: 124/70 Code: 8480-6 BMI: 36.7 Code: 04999-1 Heart Rate 1: 68 bpm Height: 5'4" Respiratory Rate: 20 bpm Temperature: 36 .6 (C) / 97.9 (F) Weight: 214 lbs 05/03/2011 Blood Pressure 1: 130/76 Code: 8480-6 BMI: 36.4 Code: 06722-0 Heart Rate 1: 74 bpm Height: 5'5" Temperature: 36.2 (C) / 97.2 (F) Weight: 219 lbs 04/05/2011 Blood Pressure 1: 124/86 Code: 8480-6 BMI: 35.9 Code: 71418-0 Heart Rate 1: 76 bpm Height: 5'6" Respiratory Rate: 22 bpm Temperature: 36 .3 (C) / 97.3 (F) Weight: 219 lbs 03/08/2011 Blood Pressure 1: 112/78 Code: 8480-6 BMI: 35.1 Code: 74787-4 Heart Rate 1: 80 bpm Height: 5'6" Respiratory Rate: 26 bpm Temperature: 36 .9 (C) / 98.4 (F) Weight: 214 lbs 01/24/2011 Blood Pressure 1: 110/82 Code: 8480-6 BMI: 35.6 Code: 07486-9 Heart Rate 1: 80 bpm Height: 5'6" Temperature: 36.1 (C) / 97.0 (F) Weight: 217 lbs 01/02/2011 Blood Pressure 1: 106/72 Code: 8480-6 BMI: 35.6 Code: 68171-4 Heart Rate 1: 76 bpm Height: 5'6" [...] 1: 120/74 Code: 8480-6 BMI: 35.9 Code: 33883-9 Heart Rate 1: 72 bpm Height: 5'5" Temperature: 36.3 (C) / 97.4 (F) Weight: 216 lbs 09/19/2010 Blood Pressure 1: 124/80 Code: 8480-6 BMI: 35.4 Code: 32017-9 Heart Rate 1: 76 bpm Height: 5'5" [...] 1: 122/78 Code: 8480-6 BMI: 37.4 Code: 74968-3 Heart Rate 1: 84 bpm Height: 5'5" [...] 10/30/2017 follow up 10/23/2017 Hospital fwup from [facility] Annual Checkup 09/17/2017 Wellness Physical fo [...] follow up 10/26/2015 ER visit from at [facility] for COPD Exacerbation follow up 10/05/2015 ER Visit gait abnormality 09/15/2015 Patient requesting kelly pineda paperwork to be filled out disturbances of thinking 08/24/2015 follow up 07/05/2015 4wk fwup follow up 06/06/2015 Hospital fw cough 05/23/2015 follow up 05/05/2015 dyspnea 03/30/2015 [facility] needs new orde r for O2 abdominal pain 02/03/2015 cyst 12/29/2014 vs abscess follow up 09/02/2014 [facility] fw headache 08/25/2014 facial drooping follow up 04/01/2014 ER follow up 03/16/2014 1wk fwup follow up 03/09/2014 1mo fwup and bronchi tis fwup follow up 03/03/2014 2 day follow up 03/01/2014 ER follow up 02/09/2014 Hospital [facility] gastroesophageal reflux 12/23/2013 painful urination 10/30/2013 [...] up 10/18/[address] Marcela sagastume w [facility], having increased allergy symptoms. Would like steroid [...] month f/u follow up 12/07/2009 from [facility], done with PT--finished [...] weakness[ICD10: M62.81] Belia BRUNSON Bushra Mayda [facility] [employer] CPT-4: 49348 05/13/2019 ([id number]) OFFICE/OUTPATIENT VISIT EST Diagnosis: Stridor[ICD10: R06.1] Diagnosis: COUGH[ICD10: R05] Belia BRUNSON BushraMayda [facility] [employer] CPT-4: 08052 05/06/2019 ([id number]) OFFICE/OUTPATIENT VISIT EST Diagnosis: Stridor[ICD10: R06.1] Diagnosis: Muscle, jerky movements (uncontrolled)[ICD10: G25.5] Belia BRUNSON BushraMayda [facility] [employer] CPT-4: 89595 04/29/2019 ([id number]) OFFICE/OUTPATIENT VISIT EST Diagnosis: Upper respiratory infection[ICD10: J06.9] Diagnosis: Flank pain[ICD10: R10.9] Diagnosis: Weight gain[ICD10: R63.5] Pattie Sotomayor BELIA BushraMayda YANDEL KATINA [employer] CPT-4: 18689 04/16/2019 ([id number]) OFFICE/OUTPATIENT VISIT EST Diagnosis: Generalized pruritus[ICD10: L29.9] Belia Shi [facility] [employer] [facility] CPT-4: 13608 04/08/2019 ([id number]) OFFICE/OUTPATIENT VISIT EST Diagnosis: Acute bursitis of left shoulder[ICD10: M75.52] Diagnosis: Cervicalgia[ICD10: M54.2] Diagnosis: Chest wall pain[ICD10: R07.89] Belia BRUNSON Bushra Mayda [facility] [employer] [facility] CPT-4: 62143 01/22/2019 ([id number]) OFFICE/OUTPATIENT VISIT EST Diagnosis: Abdominal pain[ICD10: R10.9] Diagnosis: Pyelonephritis[ICD10: N12] Pattie DOMINGUEZ [employer] [facility] CPT-4: 50664 01/07/2019 ([id number]) OFFICE/OUTPATIENT VISIT EST Diagnosis: Low back pain[ICD10: M54.5] Diagnosis: Left lumbar radiculopathy[ICD10: M54.16] Diagnosis: Left flank pain[ICD10: R10.9] Diagnosis: Left lower quadrant pain[ICD10: R10.32] Diagnosis: FLU VACCINE[ICD10: Z23] Belia FREDERICK [employer] CPT-4: 55615 12/24/2018 ([id number]) OFFICE/OUTPATIENT VISIT EST Diagnosis: Migraine, unspecified, not intractable, without status migrainosus[ICD10: G43.909] Diagnosis: Fibromyalgia[ICD10: M79.7] Belia DOMINGUEZ [employer] [facility] CPT-4: 19016 11/20/2018 ([id number]) OFFICE/OUTPATIENT VISIT EST Diagnosis: Migraine, unspecified, intractable, without status migrainosus[ICD10: G43.919] Diagnosis: Acute sinusitis, unspecified[ICD10: J01.90] Pattie REID DO [facility] CPT-4: 52973 11/04/2018 ([id number]) OFFICE/OUTPATIENT VISIT EST Diagnosis: Pain in left wrist[ICD10: M25.532] Diagnosis: Other dorsalgia[ICD10: M54.89] Pattie REID [employer] [facility] CPT-4: 12357 09/08/2018 ([id number]) OFFICE/OUTPATIENT VISIT EST Diagnosis: Acute stress reaction[ICD10: F43.0] Diagnosis: Pruritus, unspecified[ICD10: L29.9] 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, 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] Belia REID [employer] CPT-4: 83558 08/20/2018 ([id number]) OFFICE/OUTPATIENT VISIT EST Diagnosis: Hypotension due to drugs[ICD10: I95.2] Diagnosis: Paroxysmal atrial fibrillation[ICD10: I48.0] Diagnosis: Localized edema[ICD10: R60.0] Belia REID DO [facility] CPT-4: 17979 06/19/2018 ([id number]) OFFICE/OUTPATIENT VISIT EST Diagnosis: Generalized hyperhidrosis[ICD10: R61] Diagnosis: Essential (primary) hypertension[ICD10: I10] Diagnosis: Supraventricular tachycardia[ICD10: I47.1] Belia REID DO [facility] CPT-4: 21168 06/09/2018 ([id number]) OFFICE/OUTPATIENT VISIT EST Diagnosis: Stridor[ICD10: R06.1] Diagnosis: Dependence on supplemental oxygen[ICD10: Z99.81] Diagnosis: Weakness[ICD10: R53.1] Diagnosis: Supraventricular tachycardia[ICD10: I47.1] Belia REID DO [facility] CPT-4: 80517 05/21/2018 ([id number]) OFFICE/OUTPATIENT VISIT EST Diagnosis: Cervical disc disorder with radiculopathy, unspecified cervical region[ICD10: M50.10] Belia REID DO [facility] CPT-4: 26331 04/16/2018 ([id number]) OFFICE/OUTPATIENT VISIT EST Diagnosis: Migraine, unspecified, intractable, without status migrainosus[ICD10: G43.919] Diagnosis: Fibromyalgia[ICD10: M79.7] Pattie DOMINGUEZ [facility] CPT-4: 04290 04/01/2018 ([id number]) NURSE/OUTPATIENT VISIT EST Diagnosis: Hematuria, unspecified[ICD10: R31.9] Diagnosis: Dysuria[ICD10: R30.0] Belia REID DO [facility] CPT-4: 65359 03/17/2018 ([id number]) OFFICE/OUTPATIENT VISIT EST Diagnosis: Erythema intertrigo[ICD10: L30.4] Diagnosis: Chronic obstructive pulmonary disease with (acute) exacerbation[ICD10: J44.1] Diagnosis: Type 2 diabetes mellitus with hyperglycemia[ICD10: E11.65] Belia REID DO [facility] CPT-4: 64907 03/06/2018 ([id number]) OFFICE/OUTPATIENT VISIT EST Diagnosis: Cervicalgia[ICD10: M54.2] Pattie AMBRIZ [facility] CPT-4: 36728 02/05/2018 ([id number]) OFFICE/OUTPATIENT VISIT EST Diagnosis: Candidiasis of skin and nail[ICD10: B37.2] Diagnosis: Cervicalgia[ICD10: M54.2] Pattie AMBRIZ [facility] CPT-4: 37901 01/20/2018 ([id number]) OFFICE/OUTPATIENT VISIT EST Diagnosis: Pain in thoracic spine[ICD10: M54.6] Diagnosis: Radiculopathy, thoracic region[ICD10: M54.14] Belia REID [facility] CPT-4: 92861 12/25/2017 ([id number]) OFFICE/OUTPATIENT VISIT EST Diagnosis: Pain in thoracic spine[ICD10: M54.6] Diagnosis: Other muscle spasm[ICD10: M62.838] Diagnosis: FLU VACCINE[ICD10: Z23] Diagnosis: PNEUMOCOCCAL VACCINE[ICD10: Z23] Belia REID [facility] CPT-4: 78021 12/17/2017 ([id number]) OFFICE/OUTPATIENT VISIT EST Diagnosis: Chronic obstructive pulmonary disease with (acute) exacerbation[ICD10: J44.1] Belia REID [facility] CPT- 4: 29326 10/30/2017 ([id number]) OFFICE/OUTPATIENT VISIT EST Diagnosis: Chronic obstructive pulmonary disease with acute lower respiratory infection[ICD10: J44.0] Diagnosis: Mild intermittent asthma with (acute) exacerbation[ICD10: J45.21] Belia REID [facility] CPT-4: 64513 10/23/2017 ([id number]) NURSE/OUTPATIENT VISIT EST Diagnosis: Migraine, unspecified, not intractable, without status migrainosus[ICD10: G43.909] Belia REID [facility] CPT - 4: 23343 08/26/2017 ([id number]) OFFICE/OUTPATIENT VISIT EST Diagnosis: Urinary tract infection, site not specified[ICD10: N39.0] Diagnosis: Encounter for screening for osteoporosis[ICD10: Z13.820] Diagnosis: Encounter for screening mammogram for malignant neoplasm of breast[ICD10: Z12.31] Diagnosis: Acute bronchitis, unspecified[ICD10: J20.9] Pattie REID DO [facility] CPT-4: 01026 07/19/2017 ([id number]) OFFICE/OUTPATIENT VISIT EST Diagnosis: Rash and other nonspecific skin eruption[ICD10: R21] Pattie REID DO [facility] CPT-4: 11424 05/29/2017 ([id number]) OFFICE/OUTPATIENT VISIT EST Diagnosis: Diarrhea, unspecified[ICD10: R19.7] Diagnosis: Tinea corporis[ICD10: B35.4] Diagnosis: Tinea cruris[ICD10: B35.6] Diagnosis: Migraine, unspecified, not intractable, without status migrainosus[ICD10: G43.909] Belia REID [employer] [facility] CPT - 4: 62888 05/07/2017 ([id number]) OFFICE/OUTPATIENT VISIT EST Diagnosis: Stridor[ICD10: R06.1] Diagnosis: Chronic obstructive pulmonary disease with (acute) exacerbation[ICD10: J44.1] Belia REID DO [facility] CPT- 4: 13531 03/18/2017 ([id number]) OFFICE/OUTPATIENT VISIT EST Diagnosis: Type 2 diabetes mellitus with hyperglycemia[ICD10: E11.65] Belia REID DO [facility] CPT-4: 02680 02/27/2017 OFFICE/OUTPATIENT VISIT EST Diagnosis: Type 2 diabetes mellitus with hyperglycemia[ICD10: E11.65] Pattie REID DO [facility] CPT-4: 45541 02/22/2017 ([id number]) OFFICE/OUTPATIENT VISIT EST Diagnosis: Urinary tract infection, site not specified[ICD10: N39.0] Diagnosis: Pneumonia, unspecified organism[ICD10: J18.9] Diagnosis: Type 2 diabetes mellitus with hyperglycemia[ICD10: E11.65] Belia REID DO [facility] CPT-4: 23060 01/23/2017 ([id number]) OFFICE/OUTPATIENT VISIT EST Diagnosis: Type 2 diabetes mellitus with hyperglycemia[ICD10: E11.65] Diagnosis: Localized edema[ICD10: R60.0] Diagnosis: PNEUMOCOCCAL VACCINE[ICD10: Z23] Diagnosis: FLU VACCINE[ICD10: Z23] Belia [facility] [facility] CPT-4: 63041 12/20/2016 OFFICE/OUTPATIENT VISIT EST Diagnosis: Pain in thoracic spine[ICD10: M54.6] Diagnosis: Low back pain[ICD10: M54.5] Diagnosis: Cervicalgia[ICD10: M54.2] Diagnosis: Cough[ICD10: R05] Celeste Ferreira BELIA REID [facility] CPT-4: 30604 10/08/2016 ([id number]) OFFICE/OUTPATIENT VISIT EST Diagnosis: Primary insomnia[ICD10: F51.01] Diagnosis: Migraine, unspecified, not intractable, without status migrainosus[ICD10: G43.909] Diagnosis: Type 2 diabetes mellitus with hyperglycemia[ICD10: E11.65] Belia REID DO [facility] CPT-4: 69375 09/19/2016 ([id number]) OFFICE/OUTPATIENT VISIT EST Diagnosis: Migraine, unspecified, not intractable, without status migrainosus[ICD10: G43.909] Diagnosis: Generalized abdominal pain[ICD10: R10.84] Diagnosis: Cough[ICD10: R05] Belia REID DO [facility] CPT-4: 68993 08/20/2016 ([id number]) OFFICE/OUTPATIENT VISIT EST Diagnosis: Chronic obstructive pulmonary disease, unspecified[ICD10: J44.9] Diagnosis: Stridor[ICD10: R06.1] Belia REID DO [facility] CPT-4: 77768 06/19/2016 ([id number]) OFFICE/OUTPATIENT VISIT EST Diagnosis: Chronic obstructive pulmonary disease, unspecified[ICD10: J44.9] Diagnosis: Personal history of urinary (tract) infections[ICD10: Z87.440] Belia REID [facility] CPT-4: 95559 06/04/2016 ([id number]) OFFICE/OUTPATIENT VISIT EST Diagnosis: Stridor[ICD10: R06.1] Diagnosis: Chronic obstructive pulmonary disease with acute lower respiratory infection[ICD10: J44.0] Diagnosis: Other specified diseases of intestine[ICD10: K63.89] Diagnosis: Cystitis, unspecified without hematuria[ICD10: N30.90] Belia REID [facility] CPT-4: 37629 05/02/2016 ([id number]) OFFICE/OUTPATIENT VISIT EST Diagnosis: Fibromyalgia[ICD10: M79.7] Diagnosis: Urinary tract infection, site not specified[ICD10: N39.0] Belia REID [facility] CPT-4: 78778 04/03/2016 ([id number]) OFFICE/OUTPATIENT VISIT EST Diagnosis: Unspecified asthma, uncomplicated[ICD10: J45.909] Diagnosis: Cough[ICD10: R05] LidiaClarita REID [facility] T-4: 23772 02/29/2016 ([id number]) OFFICE/OUTPATIENT VISIT EST Diagnosis: Migraine, unspecified, intractable, without status migrainosus[ICD10: G43.919] Diagnosis: Urinary tract infection, site not specified[ICD10: N39.0] Belia REID [facility] CPT-4: 22027 02/02/2016 ([id number]) OFFICE/OUTPATIENT VISIT EST Diagnosis: Urinary tract infection, site not specified[ICD10: N39.0] Diagnosis: Unspecified abdominal pain[ICD10: R10.9] Diagnosis: Pain in thoracic spine[ICD10: M54.6] Diagnosis: Type 2 diabetes mellitus with diabetic neuropathic arthropathy[ICD10: E11.610] Belia REID [facility] CPT-4: 03327 12/05/2015 ([id number]) OFFICE/OUTPATIENT VISIT EST Diagnosis: Chronic obstructive pulmonary disease with (acute) exacerbation[ICD10: J44.1] Diagnosis: Migraine, unspecified, not intractable, without status migrainosus[ICD10: G43.909] Lidia CORNELLLINE Yuridia REID DO [facility] CPT -4: 29853 10/26/2015 ([id number]) OFFICE/OUTPATIENT VISIT EST Diagnosis: Hematuria, unspecified[ICD10: R31.9] Diagnosis: Urinary tract infection, site not specified[ICD10: N39.0] Lidia SHUQUELINE Yuridia REID DO [facility] CPT-4: 73479 10/05/2015 OFFICE/OUTPATIENT VISIT EST Diagnosis: Chronic obstructive pulmonary disease, unspecified[ICD10: J44.9] Diagnosis: Muscle weakness (generalized)[ICD10: M62.81] Diagnosis: Polyneuropathy, unspecified[ICD10: G62.9] Diagnosis: Other intervertebral disc degeneration, 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] Diagnosis: Fibromyalgia[ICD10: M79.7] Belia Franklin HSUQUELINE Yuridia DOMINGUEZ [facility] CPT-4: 64434 09/15/2015 ([id number]) OFFICE/OUTPATIENT VISIT EST Diagnosis: Disorientation, unspecified[ICD10: R41.0] Diagnosis: Headache[ICD10: R51] Diagnosis: Paresthesia of skin[ICD10: R20.2] Lidia Hwang KOFFI Paredes Yuridia REID [facility] CPT-4: 82698 08/24/2015 ([id number]) OFFICE/OUTPATIENT VISIT EST Diagnosis: Type 2 diabetes mellitus with hyperglycemia[ICD10: E11.65] Diagnosis: Chronic obstructive pulmonary disease with acute lower respiratory infection[ICD10: J44.0] Belia Yandelisabellaannie HSUBELIA BushraMayda [facility] CPT-4: 01629 07/05/2015 ([id number]) OFFICE/OUTPATIENT VISIT EST Diagnosis: Mild intermittent asthma with (acute) exacerbation[ICD10: J45.21] Diagnosis: Chronic obstructive pulmonary disease, unspecified[ICD10: J44.9] Belia Yandelisabellaannie HSUBELIA BushraMayda [facility] CPT-4: 48353 06/06/2015 ([id number]) OFFICE/OUTPATIENT VISIT EST Diagnosis: Chronic obstructive pulmonary disease with (acute) exacerbation[ICD10: J44.1] Lidia Hwang BELIA BushraMayda [facility] CPT- 4: 50303 05/23/2015 ([id number]) OFFICE/OUTPATIENT VISIT EST Diagnosis: Type 2 diabetes mellitus with hyperglycemia[ICD10: E11.65] Diagnosis: Functional dyspepsia[ICD10: K30] [facility] CPT-4: 73850 05/05/2015 ([id number]) OFFICE/OUTPATIENT VISIT EST Diagnosis: Type 2 diabetes mellitus with hyperglycemia[ICD10: E11.65] Diagnosis: Glycosuria[ICD10: R81] Diagnosis: Urinary tract infection, site not specified[ICD10: N39.0] [facility]ia [facility] CPT-4: 17930 03/30/2015 ([id number]) OFFICE/OUTPATIENT VISIT EST Diagnosis: Generalized abdominal pain[ICD10: R10.84] Diagnosis: Diarrhea, unspecified[ICD10: R19.7] Diagnosis: Urinary tract infection, site not specified[ICD10: N39.0] Diagnosis: Gastro-esophageal reflux disease without esophagitis[ICD10: K21.9] [facility]ia [facility] CPT-4: 49048 02/03/2015 ([id number]) OFFICE/OUTPATIENT VISIT EST Diagnosis: Other specified noninflammatory disorders of vagina[ICD10: N89.8] Diagnosis: Follicular disorder, unspecified[ICD10: L73.9] Diagnosis: Functional dyspepsia[ICD10: K30] Diagnosis: FLU VACCINE[ICD10: Z23] Belia [facility] CPT-4: 10769 12/29/2014 ([id number]) OFFICE/OUTPATIENT VISIT EST 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] Diagnosis: RESTLESS LEGS SYNDROME[ICD9: 333.94] Diagnosis: MIGRAINE NOS/NOT INTRCBL[ICD9: 346.90] Belia [facility] CPT-4: 47827 09/02/2014 ([id number]) OFFICE/OUTPATIENT VISIT EST Diagnosis: Cervical radiculopathy[ICD9: 723.4] Diagnosis: Cervicalgia[ICD9: 723.1] Diagnosis: Degenerative disc disease, cervical[ICD9: 722.4] 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I[ICD9: 250.00] Belia REID [facility] CPT-4: 79427 04/01/2014 OFFICE/OUTPATIENT VISIT EST Diagnosis: Reactive airway disease[ICD9: 493.90] Belia REID DO [facility] CPT-4: 63666 03/16/2014 ([id number]) OFFICE/OUTPATIENT VISIT EST Diagnosis: BRONCHITIS, ACUTE[ICD9: 466.0] Diagnosis: Reactive airway disease[ICD9: 493.90] Belia REID [facility] CPT-4: 97192 03/09/2014 OFFICE/OUTPATIENT VISIT EST Diagnosis: BRONCHITIS, ACUTE[ICD9: 466.0] Diagnosis: WHEEZING[ICD9: 786.07] Huong Peguero [facility] CPT-4: 12838 03/03/2014 OFFICE/OUTPATIENT VISIT EST Diagnosis: BRONCHITIS, ACUTE[ICD9: 466.0] Diagnosis: WHEEZING[ICD9: 786.07] Huong Peguero [facility] CPT-4: 11523 03/01/2014 ([id number]) OFFICE/OUTPATIENT VISIT EST Diagnosis: GERD[ICD9: 530.81] Diagnosis: ARTHRALGIA-MULTIPLE SITES[ICD9: 719.49] Diagnosis: LUMB/LUMBOSAC DISC DEGEN[ICD9: 722.52] Diagnosis: - I - FIBROMYALGIA[ICD9: 729.1] Belia REID [facility] CPT-4: 29407 02/09/2014 ([id number]) OFFICE/OUTPATIENT VISIT EST Diagnosis: Peptic ulcer disease[ICD9: 533.90] Diagnosis: RESTLESS LEGS SYNDROME[ICD9: 333.94] Diagnosis: Neuropathy[ICD9: 355.9] Belia CORNELLLINE Yuridia [facility] CPT-4: 74374 12/23/2013 ([id number]) OFFICE/OUTPATIENT VISIT EST Diagnosis: URINARY TRACT INFECTION[ICD9: 599.0] Belia CORNELL CLAYTON Yuridia REID [facility] CPT-4: 47184 10/30/2013 ([id number]) OFFICE/OUTPATIENT VISIT EST Diagnosis: Flank pain[ICD9: 789.00] Belia Reid BELIA BushraMayda [facility] CPT-4: 46772 10/21/2013 ([id number]) OFFICE/OUTPATIENT VISIT EST Diagnosis: INFLAMED SEBORR KERATOS[ICD9: 702.11] Diagnosis: Brachioradial pruritus[ICD9: 698.9] Diagnosis: ASTHMA NOS[ICD9: 493.90] Belia Yandelisabellaannie BELIA BushraMayda [facility] CPT-4: 99424 10/05/2013 ([id number]) OFFICE/OUTPATIENT VISIT EST Diagnosis: HYPERTENSION[ICD9: 401.9] Diagnosis: - I - FIBROMYALGIA[ICD9: 729.1] Diagnosis: DIZZINESS/VERTIGO[ICD9: 780.4] Diagnosis: MIGRAINE NOS/NOT INTRCBL[ICD9: 346.90] Diagnosis: Diabetic peripheral neuropathy[ICD9: 250.60] Diagnosis: Flank pain[ICD9: 789.00] Belia BRUNSON BushraMayda [facility] CPT-4: 98560 08/04/2013 ([id number]) OFFICE/OUTPATIENT VISIT EST Diagnosis: ALLERGIC RHINITIS[ICD9: 477.9] Belia Yandelisabellaannie BELIA Bushra Mayda [facility] CPT-4: 63380 07/13/2013 OFFICE/OUTPATIENT VISIT EST Diagnosis: URINARY TRACT INFECTION[ICD9: 599.0] Huong ARNOLD BushraMayda [facility] CPT-4: 42618 07/03/2013 OFFICE/OUTPATIENT VISIT EST Diagnosis: HYPERTENSION[ICD9: 401.9] Diagnosis: URINARY TRACT INFECTION[ICD9: 599.0] Diagnosis: BACKACHE[ICD9: 724.5] Diagnosis: URINARY INCONTINENCE[ICD9: 788.30] [facility]: 31462 05/27/2013 ([id number]) OFFICE/OUTPATIENT VISIT EST Diagnosis: Flank pain[ICD9: 789.00] Belia BRUNSON BushraMayda [facility] CPT-4: 22703 05/25/2013 ([id number]) OFFICE/OUTPATIENT VISIT EST Diagnosis: B-COMPLEX DEFIC NEC[ICD9: 266.2] Belia REID [facility] CPT-4: 19834 05/04/2013 ([id number]) OFFICE/OUTPATIENT VISIT EST Diagnosis: ALLERGIC RHINITIS[ICD9: 477.9] Diagnosis: Vitamin B12 deficiency[ICD9: 266.2] Belia REID [facility] CPT-4: 27448 04/17/2013 ([id number]) OFFICE/OUTPATIENT VISIT EST 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I[ICD9: 250.00] Diagnosis: URINARY TRACT INFECTION[ICD9: 599.0] Diagnosis: DIZZINESS/VERTIGO[ICD9: 780.4] Diagnosis: DIARRHEA[ICD9: 787.91] Belia Peguero [facility] CPT-4: 15563 04/06/2013 ([id number]) OFFICE/OUTPATIENT VISIT EST Diagnosis: URINARY TRACT INFECTION[ICD9: 599.0] Diagnosis: URINARY RETENTION[ICD9: 788.20] Belia REID [facility] CPT-4: 49682 11/10/2012 ([id number]) OFFICE/OUTPATIENT VISIT EST Diagnosis: TACHYCARDIA[ICD9: 785.0] Diagnosis: SYNCOPE AND COLLAPSE[ICD9: 780.2] Diagnosis: CONSCIOUSNS ALTERAT NEC[ICD9: 780.09] Belia REID [facility] CPT-4: 00978 09/02/2012 OFFICE/OUTPATIENT VISIT EST Diagnosis: TACHYCARDIA[ICD9: 785.0] Diagnosis: SYNCOPE AND COLLAPSE[ICD9: 780.2] Belia REID [facility] CPT-4: 72423 08/04/2012 ([id number]) OFFICE/OUTPATIENT VISIT EST Diagnosis: Loss of consciousness[ICD9: 780.09] Diagnosis: Tachycardia[ICD9: 785.0] Diagnosis: MALAISE AND FATIGUE[ICD9: 780.79] Belia REID [facility] CPT-4: 68904 07/21/2012 ([id number]) OFFICE/OUTPATIENT VISIT EST Diagnosis: BRONCHITIS, ACUTE[ICD9: 466.0] Diagnosis: ASTHMA NOS[ICD9: 493.90] Belia POOLE [facility] CPT-4: 85281 07/02/2012 ([id number]) OFFICE/OUTPATIENT VISIT EST Diagnosis: CEPHALGIA[ICD9: 784.0] Belia Peguero [facility] CPT-4: 04317 06/25/2012 ([id number]) OFFICE/OUTPATIENT VISIT EST Diagnosis: GERD[ICD9: 530.81] Diagnosis: DIARRHEA[ICD9: 787.91] Diagnosis: URINARY TRACT INFECTION[ICD9: 599.0] Diagnosis: ASTHMA NOS[ICD9: 493.90] Diagnosis: ALLERGIC RHINITIS[ICD9: 477.9] Belia REID [facility] CPT-4: 54874 06/24/2012 ([id number]) OFFICE/OUTPATIENT VISIT EST Diagnosis: MIGRAINE NOS/NOT INTRCBL[ICD9: 346.90] Diagnosis: TREMOR NEC[ICD9: 333.1] Diagnosis: CHRONIC PAIN SYNDROME[ICD9: 338.4] Belia REID [facility] CPT-4: 03713 05/20/2012 ([id number]) OFFICE/OUTPATIENT VISIT EST Diagnosis: DIZZINESS/VERTIGO[ICD9: 780.4] Diagnosis: PALPITATIONS[ICD9: 785.1] Diagnosis: TREMOR NEC[ICD9: 333.1] Diagnosis: ANXIETY STATE NOS[ICD9: 300.00] Diagnosis: POSTTRAUMATIC STRESS DISORDER[ICD9: 309.81] Belia REID [facility] CPT-4: 19633 05/08/2012 ([id number]) OFFICE/OUTPATIENT VISIT EST Diagnosis: MIGRAINE NOS/NOT INTRCBL[ICD9: 346.90] Diagnosis: FIBROMYALGIA[ICD9: 729.1] Diagnosis: SYNCOPE AND COLLAPSE[ICD9: 780.2] Diagnosis: Diabetic peripheral neuropathy[ICD9: 250.60] Belia REID [facility] CPT-4: 77194 04/22/2012 OFFICE/OUTPATIENT VISIT EST Diagnosis: ROTATOR CUFF DIS NEC[ICD9: 726.19] Diagnosis: JOINT PAIN-SHLDER[ICD9: 719.41] Diagnosis: DYSPEPSIA[ICD9: 536.8] Belia Peguero [employer] [facility] CPT-4: 21606 02/13/2012 ([id number]) OFFICE/OUTPATIENT VISIT EST Diagnosis: MIGRAINE NOS/NOT INTRCBL[ICD9: 346.90] Diagnosis: GERD[ICD9: 530.81] Diagnosis: DYSPEPSIA[ICD9: 536.8] Belia Peguero [employer] [facility] CPT-4: 83127 01/28/2012 OFFICE/OUTPATIENT VISIT EST Diagnosis: CEPHALGIA[ICD9: 784.0] Diagnosis: MIGRAINE NOS/NOT INTRCBL[ICD9: 346.90] Diagnosis: GERD[ICD9: 530.81] Diagnosis: INSOMNIA NOS[ICD9: 780.52] Belia DOMINGUEZ [employer] [facility] CPT-4: 60717 12/26/2011 ([id number]) OFFICE/OUTPATIENT VISIT EST Diagnosis: CEPHALGIA[ICD9: 784.0] Diagnosis: MIGRAINE NOS/NOT INTRCBL[ICD9: 346.90] Diagnosis: MALAISE AND FATIGUE[ICD9: 780.79] Diagnosis: FIBROMYALGIA[ICD9: 729.1] Diagnosis: ALLERGIC RHINITIS[ICD9: 477.9] Belia REID [facility] CPT-4: 33296 11/14/2011 ([id number]) OFFICE/OUTPATIENT VISIT EST Diagnosis: MALAISE AND FATIGUE[ICD9: 780.79] Diagnosis: MUSCLE WEAKNESS-GENERAL[ICD9: 728.87] Diagnosis: MIGRAINE NOS/NOT INTRCBL[ICD9: 346.90] Diagnosis: JOINT PAIN-SHLDER[ICD9: 719.41] Belia REID [employer] [facility] CPT-4: 54896 09/12/2011 ([id number]) OFFICE/OUTPATIENT VISIT EST Diagnosis: CONCUSSION[ICD9: 850.9] Diagnosis: Ataxia[ICD9: 781.3] Diagnosis: DIZZINESS/VERTIGO[ICD9: 780.4] Belia REID [facility] CPT-4: 57228 08/15/2011 ([id number]) OFFICE/OUTPATIENT VISIT EST Diagnosis: THROMBOPHLEBITIS[ICD9: 451.9] Diagnosis: Subacromial bursitis[ICD9: 726.19] Diagnosis: ALLERGIC RHINITIS[ICD9: 477.9] Diagnosis: Lipoma[ICD9: 214.9] Belia REID [facility] CPT-4: 56215 08/09/2011 ([id number]) OFFICE/OUTPATIENT VISIT EST Diagnosis: THROMBOPHLEBITIS[ICD9: 451.9] Diagnosis: Arm pain[ICD9: 729.5] Diagnosis: Clostridium difficile colitis[ICD9: 008.45] Diagnosis: URINARY TRACT INFECTION[ICD9: 599.0] Belia Shi [facility] CPT-4: 29434 07/03/2011 ([id number]) OFFICE/OUTPATIENT VISIT EST Diagnosis: ARTHRALGIA-MULTIPLE SITES[ICD9: 719.49] Diagnosis: Muscle cramp[ICD9: 729.82] Diagnosis: INSOMNIA NOS[ICD9: 780.52] [facility] CPT-[facility]: 81274 06/04/2011 OFFICE/OUTPATIENT VISIT EST Diagnosis: Headache[ICD9: 784.0] Diagnosis: Allergic rhinitis[ICD9: 477.9] [facility] C[facility]: 67959 05/03/2011 OFFICE/OUTPATIENT VISIT EST Diagnosis: LUMB/LUMBOSAC DISC DEGEN[ICD9: 722.52] Diagnosis: MIGRAINE NOS/NOT INTRCBL[ICD9: 346.90] Diagnosis: CHRONIC PAIN SYNDROME[ICD9: 338.4] Diagnosis: RESTLESS LEGS SYNDROME[ICD9: 333.94] [facility] CPT-[facility]: 96416 04/05/2011 OFFICE/OUTPATIENT VISIT EST Diagnosis: MIGRAINE NOS/NOT INTRCBL[ICD9: 346.90] Diagnosis: GERD[ICD9: 530.81] [facility] CPT-4: 54233 03/08/2011 OFFICE/OUTPATIENT VISIT EST Diagnosis: URINARY TRACT INFECTION[ICD9: 599.0] Diagnosis: Vertigo[ICD9: 780.4] Diagnosis: GERD[ICD9: 530.81] Belia REID DO [facility] CPT-4: 19563 01/24/2011 OFFICE/OUTPATIENT VISIT EST Diagnosis: Hypotension[ICD9: 458.9] Diagnosis: Syncopal episodes[ICD9: 780.2] Diagnosis: MIGRAINE NOS/NOT INTRCBL[ICD9: 346.90] Diagnosis: MALAISE AND FATIGUE[ICD9: 780.79] Belia Yandelisabellaannie SHARMANDER DO [facility] CPT-4: 04528 01/02/2011 OFFICE/OUTPATIENT VISIT EST Diagnosis: Tinea cruris[ICD9: 110.3] Diagnosis: Intertrigo[ICD9: 695.89] Diagnosis: MIGRAINE NOS/NOT INTRCBL[ICD9: 346.90] Belia GaribayLUBNA TomlinsonMayda YANDELNDER DO [facility] CPT-4: 38703 12/07/2010 OFFICE/OUTPATIENT VISIT EST Diagnosis: PALPITATIONS[ICD9: 785.1] Diagnosis: ANXIETY STATE NOS[ICD9: 300.00] Belia Franklin SHARMANDER DO [facility] CPT-4: 64588 11/16/2010 OFFICE/OUTPATIENT VISIT EST Diagnosis: URINARY TRACT INFECTION[ICD9: 599.0] Diagnosis: MIGRAINE NOS/NOT INTRCBL[ICD9: 346.90] Iraida GaribayLUBNA SMayda SHARMANDER DO [facility] CPT-4: 48400 11/02/2010 OFFICE/OUTPATIENT VISIT EST Diagnosis: ALLERGIC RHINITIS[ICD9: 477.9] Diagnosis: ANXIETY STATE NOS[ICD9: 300.00] Belia Yandelkatina BRUNSON BushraMayda YANDELNDER DO [facility] CPT-4: 62639 10/18/2010 OFFICE/OUTPATIENT VISIT EST Belia Yandelkatina BRUNSON BushraMayda YANDEL NDER DO [facility] CPT- 4: 98646 09/19/2010 OFFICE/OUTPATIENT VISIT EST Belia Yandelisabellaannie BELIA BushraMayda YANDEL NDER DO [facility] CPT- 4: 11435 09/06/2010 ([id number]) OFFICE/OUTPATIENT VISIT EST Belia GaribayLUBNA SMayda YANDELNDER DO [facility] CPT-4: 18630 08/10/2010 ([id number]) OFFICE/OUTPATIENT VISIT EST Belia CASILLAS [facility] CPT-4: 42444 05/11/2010 ([id number]) OFFICE/OUTPATIENT VISIT, EST Belia [facility]JIAL[facility] CPT-4: 19831 04/06/2010 ([id number]) OFFICE/OUTPATIENT VISIT, EST Belia HSU [facility] CPT-4: 75349 02/09/2010 ([id number]) OFFICE/OUTPATIENT VISIT, EST Belia [facility] CPT-4: 95845 01/05/2010 ([id number]) OFFICE/OUTPATIENT VISIT, EST Belia [facility] CPT-4: 37364 12/07/2009 ([id number]) OFFICE/OUTPATIENT VISIT, EST Belia [facility] CPT-4: 82947 11/08/2009 ([id number]) OFFICE/OUTPATIENT VISIT, EST Belia [facility] CPT-4: 77488 10/24/2009 ([id number]) OFFICE/OUTPATIENT VISIT, EST Belia [facility] CPT-4: 26495 07/25/2009 ([id number]) OFFICE/OUTPATIENT VISIT, RIOS [facility] CPT-4: 19745 05/26/2009 Plan of Care Planned Activity Notes [...] Add Singulair May need to see new carpenter bridge ICD-9 : 786.1 ICD-10 : R06.1 05/06/2019 Appointment: Belia Reid WPtel: [address] [place], [place] [address] FOLLOW UP 05/06/2019 Patient Education: Singulair- [employer] Coupon [id number] https://www.[employer]/sampleMoveline/resources/getResource/61/1573434w-d98x-30x7-iq Completed 05/06/2019 Care Plan: CT THORAX W/O DYE LOINC : 473 66-0 Pending 05/06/2019 Appointment: Belia Reid WPtel: [address] [place] [address] US RESCHEDULED 04/30/2019 Visit Diagnosis Plan: Muscle, [...] : R06.1 04/29/2019 Appointment: Belia Reid WPtel: [address] [place] [address] Hospital Follow Up 04/29/2019 Patient Education: Valium- [employer] Coupon [id number] https://www.[employer]/samplemd/resources/getResource/61/i58135fi-942d-5y48-4i Completed 04/29/2019 Visit Diagnosis Plan: Weight gain [...] ICD-10 : R10.9 04/16/2019 Appointment: Pattie Sotomayor [address] [place] [address] ACUTE ILLNESS 04/16/2019 Patient Education: cyclobenzaprine- [employer] Coupon [id number] https://www.[employer]/resources/getResource/61/[email or web address]-b3 Completed 04/16/2019 Visit Diagnosis Plan: Generalized pruritus Discussion: Hydroxyzine 25mg po TID for itching and anxiety ICD-9 : 698.9 ICD-10 : L29.9 04/08/2019 Visit Diagnosis Plan: Migraine, unspecif ied, not intractable, without status migrainosus Discussion: Increase gabapentin to 600mg po BID ICD-9 : 346.90 ICD-10 : G43.909 04/08/2019 Appointment: Belia Reid WPtel: [address] [place] [address] ACUTE ILLNESS 04/08/2019 Visit Diagnosis Plan: Cervicalgia [...] : M75.52 01/22/2019 Appointment: Belia Reid WPtel: [address] [place] [address] Hospital Follow Up 01/22/2019 Visit Diagnosis Plan: Abdominal pain Discussion: urine culture sent to assess for any infection. rocephin given in office to cover for pyelonephritis. instructed to push fluids. call office with any new or worsening symptoms. ICD-9 : 789.00 ICD-10 : R10.9 01/07/2019 Appointment: Pattie Sotomayor [address] [place] [address] ACUTE ILLNESS 01/07/2019 Visit Diagnosis Plan: Low back pain Discussion: Stat C T of abdomen/pelvis now ICD-9 : 724.2 ICD-10 : M54.5 12/24/2018 Appointment: Belia Reid WPtel: [address] [place], [place] [id number] FOLLOW UP 12/24/2018 Visit Diagnosis Plan: Fibromyalgia [...] : G43.909 11/20/2018 Appointment: Belia Reid WPtel: [address] [place] [address] ACUTE ILLNESS 11/20/2018 Patient Education: baclofen- Opt[employer] Coupon [id number] https://www.[employer]/samplemd/resources/getResource/61/1z7591b6-[email or web address]-75vx-74 Completed 11/20/2018 Visit Diagnosis Plan: Migraine, unspecif ied, intractable, without status migrainosus Discussion: toradol/phenergan given in o ffice (60 mg toradol, 12.5 mg phenergan). instructed to call if no improvement or worsening. instructed to follow up with device repair technician since headaches are occurring more frequently to make sure vision is not the cause. ICD-9 : 346.91 ICD-10 : G43.919 11/04/2018 Visit Diagnosis Plan: Acute sinusitis, unspecified Dis cussion: zithromax prescribed to cover for sinus infection due to length of symptoms and clinincal s/s. ICD-9 : 461.9 ICD-10 : J01.90 11/04/2018 Appointment: Pattie Sotomayor [address] [place], [place] [id number] ACUTE ILLNESS 11/04/2018 Appointment: [facility] [phone] [id number] [facility] CANCELED 09/24/2018 Visit Diagnosis Plan: Type 2 diabetes me llitus with diabetic neuropathy, unspecified Discussion: Retry gabapentin 300mg po q HS ICD-9 : 250.60 ICD-10 : E11.40 09/18/2018 Visit Diagnosis Plan: Vitamin D deficiency, unspecifie d Discussion: Increase Vitamin D3 to 10,000 u daily ICD-9 : 268.9 ICD-10 : E55.9 09/18/2018 Visit Diagnosis Plan: Encounter for [facility] adult medical examination without abnormal [...] I10 09/18/2018 Appointment: Belia Reid [facility]el: [phone] [id number] [facility] Visit 09/18/2018 Patient Education: gabapentin- [employer] Coupon [id number] [email or web address] Completed 09/18/2018 Visit Diagnosis Plan: Pain in [...] ICD-10 : M54.89 09/08/2018 Appointment: Pattie Sotomayor [address] [place], [place] [id number] ACUTE ILLNESS 09/08/2018 Patient Education: prednisone- [employer] Coupon [id number] [email or web address] Completed 09/08/2018 Visit Diagnosis Plan: Acute stress [...] : L29.9 08/20/2018 Appointment: Belia Reid WPtel: [address] [place] [address] ACUTE ILLNESS 08/20/2018 Patient Education: Lexapro- [employer] Coupon [id number] Completed 08/20/2018 Patient Education: hydroxyzine HCl- [employer] Coupon [id number] Completed 08/20/2018 Care Plan: MAMMOGRAM SCREENING LOINC : 2 6347-5 Pending 08/20/2018 Visit Diagnosis Plan: Paroxysmal atrial fibrillation D iscussion: Discuss eliquis need with cardiology at [facility] due to cost ICD-9 : 427.31 ICD-10 : I48.0 06/19/2018 Visit Diagnosis Plan: Hypotension due to drugs Discuss ion: Discussed decreasing cardizem dose due to low BP and edema but sees cardiology next week Follow Up: 1 months ICD-9 : 458.8 ICD-10 : I95.2 06/19/2018 Appointment: Belia Reid WPtel: [facility] [place] [place] [phone] FOLLOW UP 06/19/2018 Visit Diagnosis Plan: Essential [...] : R61 06/09/2018 Appointment: Belia Reid WPtel: [address] [place], [place] [phone] FOLLOW UP 06/09/2018 Care Plan: CHEST X-RAY 2VW FRONTAL&LATL LOINC : 25877-4 Pending 05/26/2018 Visit Diagnosis Plan: Stridor Discussion: [...] : I47.1 05/21/2018 Appointment: Belia Reid WPtel: [address] [place], [place] [phone] Hospital Follow Up 05/21/2018 Visit Diagnosis Plan: Cervical disc diso rder with radiculopathy, unspecified cervical region Discussion: Scheduled for surgery on 06/02 10/[address] Faulkner ICD-9 : 722.0 ICD-10 : M50.10 04/16/2018 Appointment: Belia Reid WPtel: [address] [place], [place] [phone] [facility] Follow Up 04/16/2018 Visit Diagnosis Plan: [...] ICD-10 : M79.7 04/01/2018 Appointment: Pattie Sotomayor [address] [place] [address] ACUTE ILLNESS 04/01/2018 Appointment: Belia Reid WPtel: [facility] [address] 03/17/2018 Visit Diagnosis Plan: Erythema intertrigo [...] : J44.1 03/06/2018 Appointment: Belia Reid WPtel: [address] [place] [address] Hospital Follow Up 03/06/2018 Visit Diagnosis Plan: Cervicalgia Discussion: spoke wi th dr. reid about patient. increased gabapentin to bid and started on celebrex bid. tramadrol rx written out to take prn. keep scheduled appt next week for myelogram. ICD-9 : 723.1 ICD-10 : M54.2 02/05/2018 Appointment: Pattie Sotomayor [address] [place] [address] ACUTE ILLNESS 02/05/2018 Care Plan: X-RAY EXAM NECK SPINE 4/5VWS cervical LOINC : 82411-0 Pending 01/21/2018 Visit Diagnosis Plan: Candidiasis of [...] ICD-10 : M54.2 01/20/2018 Appointment: Pattie Sotomayor [address] [place], [place] [phone] ACUTE ILLNESS 01/20/2018 Visit Diagnosis Plan: Pain in thoracic spine Discussio n: Proceed with CT scan of thoracic spine Will likely need PT ICD-9 : 724.1 ICD-10 : M54.6 12/25/2017 Appointment: Belia Reid WPtel: [address] [place], [place] [phone] FOLLOW UP 12/25/2017 Care Plan: CT THORAX W/O DYE LOINC : 473 66-0 Pending 12/25/2017 Visit Diagnosis Plan: Pain in thoracic spine Discussio n: Stretches Alternated heat/ice Topical aspercreme with lidocaine Flexeril Recheck 1 week Flu and Pneumovax given ICD-9 : 724.1 ICD-10 : M54.6 12/17/2017 Appointment: Belia Reid WPtel: [address] [place], [place] [phone] ACUTE ILLNESS 12/17/2017 Patient Education: Patient Medication [...] : J44.1 10/30/2017 Appointment: Belia Reid WPtel: [address] [place], [place] [phone] FOLLOW UP 10/30/2017 Patient Education: Patient Medication Summary Completed 10/30/2017 Visit Diagnosis Plan: Chronic obstructiv e pulmonary disease with acute lower respiratory infection Discussion: Continue SVNs with albuterol q4hrs Add Trelagy 1 inhalation daily Finish steroids Increase water intake Follow Up: 1 weeks ICD-9 : 496 ICD-10 : J44.0 10/23/2017 Appointment: Belia Reidtel: [address] [place], [place] [phone] [place] WORK IN 10/23/2017 Patient Education: Patient Medication Summary Completed 10/23/2017 Appointment: Belia Reidtel: [address] [place] [phone] NO SHOW 10/16/2017 Visit Diagnosis Plan: Confusional [...] ICD-10 : E11.65 09/17/2017 Appointment: Belia Reidtel: [address] [place] [phone] Annual Well Visit 09/17/2017 Patient Education: Patient Medication Summary Completed 09/17/2017 Appointment: Belia Reid WPtel: [address] [place] [phone] [place] INJECTION 08/26/2017 Patient Education: Patient Medication Summary Completed 08/26/2017 Appointment: Belia Reidtel: [address] [place] [phone] [place] CANCELED 07/31/2017 Visit Diagnosis Plan: Encounter [...] : J20.9 07/19/2017 Appointment: Pattie Sotomayor [address] [place] [id number] ACUTE ILLNESS 07/19/2017 Patient Education: Patient Medication Summary Completed 07/19/2017 Care Plan: MAMMOGRAM SCREENING LOINC : 2 6347-5 Pending 07/19/2017 Patient Education: Patient Medication Summary Completed 06/05/2017 Care Plan: LIPID PANEL LOINC : 22745-7 Pending 06/05/2017 Care Plan: A1C HPLC LOINC : 19823-6 Pending 06/05/2017 Visit Diagnosis Plan: Rash and [...] : R21 05/29/2017 Appointment: Pattie Sotomayor [address] [id number] FOLLOW UP 05/29/2017 Patient Education: Patient Medication Summary Completed 05/29/2017 Visit Diagnosis Plan: Diarrhea, unspecified Discussion : Diflucan Cholestyramine Recheck 2weeks ICD-9 : 787.91 ICD-10 : R19.7 05/07/2017 Visit Diagnosis Plan: Tinea corporis Discussion: Diflu can and topical nystatin Follow Up: 2 weeks ICD-9 : 110.5 ICD-10 : B35.4 05/07/2017 Appointment: Belia Reid WPtel: [address] [place], [place] [phone] [place] FOLLOW UP 05/07/2017 Patient Education: Patient Medication Summary Completed 05/07/2017 Appointment: Belia Reid WPtel: [address] [place] [address] US RESCHEDULED 04/30/2017 Visit Diagnosis Plan: Stridor Discussion: Increase Ati van 0.5mg po to TID routinely for next week then can go back to prn ICD-9 : 786.1 ICD-10 : R06.1 03/18/2017 Visit Diagnosis Plan: Chronic obstructiv e pulmonary disease with (acute) exacerbation Discussion: Finish prednisone Continue S VNS with albuterol ICD-9 : 491.21 ICD-10 : J44.1 03/18/2017 Appointment: Belia Reid WPtel: [address] [place] [address] ER Follow UP 03/18/2017 Patient Education: Patient [...] ICD-10 : E11.65 02/27/2017 Appointment: Belia Reidtel: [address] [place], [place] [address] US FOLLOW UP 02/27/2017 Patient Education: Patient [...] : E11.65 02/22/2017 Appointment: [id number] [facility] 02/22/2017 Patient Education: Patient Medication [...] ICD-10 : J18.9 01/23/2017 Appointment: Belia Reidl: [facility] [facility] Follow UP 01/23/2017 Patient Education: Patient Medication Summary Completed 01/23/2017 Appointment: Patt[facility]or [address] [facility] CANCELED 01/17/2017 Appointment: Pattie Sotomayor [address] [place], [place] [id number] Annual Well Visit 01/14/2017 Visit Diagnosis Plan: Localized edema Discussion: Low Na diet Compression socks/Elevate feet ICD-9 : 782.3 ICD-10 : R60.0 12/20/2016 Visit Diagnosis Plan: Type 2 diabetes mellitus with hy perglycemia Discussion: Check CMP, HbA1C Flu shot and Prevnar 13 given Follow Up: 3 months ICD-9 : 250.02 ICD-10 : E11.65 12/20/2016 Appointment: Belia Reid: [address] [id number] FOLLOW [facility] 12/20/2016 Patient Education: Patient Medication Summary Completed 12/20/2016 Patient Education: Patient Medication Summary Completed 10/10/2016 Visit Plan: Xrays of cervical, thoracic and lumbar spine at ER[facility] for Mobic (stop NSAIDS except Tylenol) and Flexeril UA sent for C&S Using SVN Call in 2-3 days if pain not improved or any worsening 10/08/2016 Appointment: Celeste Ferreira [facility]Ptel[phone] [facility] 10/08/2016 Patient Education: Patient Medication [...] : G43.909 09/19/2016 Appointment: Belia Reid WPtel: [address] [place] [id number] 09/18 confirmed`sl FOLLOW UP 09/19/2016 Patient Education: [...] : G43.909 08/20/2016 Appointment: Belia Reid WPtel: [address] [place], [place] [phone] 08/16 confirmed~sl FOLLOW UP 08/20/2016 Patient Education: [...] : R06.1 06/19/2016 Appointment: Belia Reid WPtel: [address] [place], [place] [phone] 06/18 confirmed ~ Hospital Follow Up 06/19/2016 [...] : Z87.440 06/04/2016 Appointment: Belia Reid WPtel: [address] [place] [phone] 06/01 confirmed~sl FOLLOW UP 06/04/2016 Patient Education: [...] : N30.90 05/02/2016 Appointment: Belia Reid WPtel: [address] [place], [place] [address] 05/01 confirmed ~ Hospital Follow Up 05/02/2016 [...] : 729.1 ICD-10 : M79.7 04/03/2016 Appointment: Belia Reid WPtel: [address] [place], [place] [phone] Follow Up 04/03/2016 Patient Education: Patient Medication Summary Completed 04/03/2016 Visit Plan: Lungs are clear Her symptoms and exam are all upper airway restriction/constriction Can try supportive care Rx as above Follow up PRN 02/29/2016 Appointment: Lidia Hwang [address] [place] [address] ACUTE ILLNESS 02/29/2016 Patient Education: Patient Medication Summary Completed 02/29/2016 Visit Plan: Toradol/Phenergan today for Migraine Change to Clindamycin to cover lactobacillus for UTI Cover with flagyl due to hx of C. Diff 02/02/2016 Appointment: Belia Reid WPtel: [address] [place], [place] [address] 01/31 confirmed` ACUTE ILLNESS 02/02/2016 Patient Education: Patient Medication Summary Completed 02/02/2016 Visit Plan: Increase neurontin to 300mg q AM and 600mg q PM Discussed neurology re-evaluation Flu shot given Need to check on Pneumonia shot Rx written out for albuterol 01/05/2016 Appointment: Belia Reid WPtel: [address] [place], [place] [phone] 01/03 confirmed ~sl Annual Well Visit 01/05/2016 Patient Education: Patient Medication Summary Completed 01/05/2016 Visit Plan: Cipro Culture urine hydrate Flexeril refilled Alternate heat and ice for back Increase gabapentin to 300mg po BID Notify if worsens 12/05/2015 Appointment: Belia Reid WPtel: [phone] [facility] 11/30 confirmed~sl ACUTE ILLNESS 12/05/2015 Patient Education: Patient Medication Summary Completed 12/05/2015 Patient Education: Patient Medication Summary Completed 10/27/2015 Care Plan: COMPREHEN METABOL[place] : 13735-5 Pending 10/27/2015 Care Plan: A1C HPLC LOINC : 92277-5 Pending 10/27/2015 Visit Plan: Lungs are CTA today and is f eeling improved overall Finish meds as ordered Continue inhalers and neb treatments Discussed migraine treatment options She does not feel she needs anything additional added today Refill of Januvia sent since no samples are available today 10/26/2015 Appointment: Lidia Hwang [address] Hospital Follow Up 10/26/2015 Appointment: Lidia Hwang [address] CANCELED 10/26/2015 Patient Education: Patient Medication Summary Completed 10/26/2015 Patient Education: Januvia - 18+ - KENNETH - No [place] Completed 10/26/2015 Visit Plan: Office dip still abnormal Cu lture pending Switch to cipro - stop macrobid Push fluids - avoid caffeine Will call with culture results when available Follow up if worsening 10/05/2015 Appointment: Lidia Hwang [address] ER Follow UP 10/05/2015 Patient Education: Patient Medication Summary Completed 10/05/2015 Visit Plan: Proceed with PT for document ation of ROM and strength of all extremities Proceed with Power Mobility Device Trial of neurontin 300mg q HS--lyrica helped but patient unable to afford Recheck 1month 09/15/2015 Appointment: Belia Reid WPtel: [address] [place], [place] [phone] 09/13 confirmed~sl SPECIAL 09/15/2015 Patient Education: Patient Medication Summary Completed 09/15/2015 Visit Plan: Fille out Loan Discharge Pap erwork for total and permanent disability 08/25/2015 Patient Education: Patient Medication Summary Completed 08/25/2015 Visit Plan: Discussed with Dr Franklin Haywood at CT of head Will get last date of carotid doppler from her examination proctor and update if needed 08/24/2015 Appointment: Lidia Hwang [address] [facility] 08/22 confirmed~sl ACUTE ILLNESS 08/24/2015 Patient Education: Patient Medication Summary Completed 08/24/2015 Patient Education: Patient Medication Summary Completed 08/24/2015 Care Plan: US EXAM OF HEAD AND NECK carotid Ultrasound LOIN C : 77644-3 Pending 08/24/2015 Visit Plan: Long discussion about diet A ccuchecks daily Check HbA1C, CMP Change requip to mirapex 07/05/2015 Appointment: Belia Reid WPtel: [address] [place] [phone] 07/03 confirmed ~sl FOLLOW UP 07/05/2015 Patient Education: Patient Medication Summary Completed 07/05/2015 Visit Plan: Add Breo ellipta 100 1 p BID Continue SVNs with duoneb QID 06/06/2015 Appointment: Belia Reid WPtel: [address] [place], [place] [phone] Patient is calling for a ride, then retu rning our call.-sp 06/01 called and patient stated she will know saturday if she can get a ride~sl 06/05 [facility] Hospital Follow Up 06/06/2015 Patient Education: [...] improving 05/23/2015 Appointment: Huong Osborne WPtel: [address] [place] [address] ACUTE ILLNESS 05/23/2015 Appointment: Lidia Hwang [address] [place] [address] ER Follow UP 05/23/2015 Patient Education: Patient Medication Summary Completed 05/23/2015 Visit Plan: Check pancreatic enzymes and US of pancreas as patient can't understand why she has diabetes since has no family history Discussed weight, diet, exercise all play an important role in diabetes and are risk factors as well Continue Januvia and accuchecks daily 05/05/2015 Appointment: Belia Reid WPtel: [address] [place] [address] US FOLLOW UP 05/05/2015 Patient Education: Patient Medication Summary Completed 05/05/2015 Care Plan: US EXAM ABDOM COMPLETE LOINC : 24106-1 Ordered 05/05/2015 Visit Plan: Start Januvia 100mg daily [place] with diflucan and culture urine Accuchecks daily alternating times Recheck 6weeks 03/30/2015 Appointment: Belia Reid WPtel: [address] [place] [address] 03/29 confirmed~lb FOLLOW UP 03/30/2015 Patient Education: Patient Medication Summary Completed 03/30/2015 Appointment: Belia Reid WPtel: [address] [place], [place] [phone] 03/01 needs reschedule due to payment and insurance ~sl FOLLOW UP 03/02/2015 Visit Plan: Patient was just in ER last night so has not filled scripts yet Start Carafate and Flagyl and Cipro Add Hyophen 1 po BID Recheck 1mo 02/03/2015 Appointment: Belia Reid WPtel: [address] [place] [address] [place] 02/02lm ~sl...02/03/15 appt confirmed cn ACUTE I LLNESS 02/03/2015 Patient Education: Patient Medication Summary Completed 02/03/2015 Visit Plan: Warm soaks to vaginal area K elex and Diflucan and observe Zofran to use prn 12/29/2014 Appointment: Belia Reid WPtel: [address] [place], [place] [phone] 12/28 Confirmed ~ ACUTE ILLNESS 12/29/2014 Patient Education: Patient Medication Summary Completed 12/29/2014 Appointment: Huong Osborne WPtel: [address] [place], [place] [phone] FOLLOW UP 09/24/2014 Appointment: Belia Reid WPtel: [address] [place] [address] 09/15 confirmed - FOLLOW UP 09/16/2014 Visit Plan: Increase requip to 2mg po BI D Increase lyrica to 225mg total a day by adding an extra 75mg in AM Recheck in 2weeks Continue to patch left eye while sleeping 09/02/2014 Appointment: Belia Reid WPtel: [address] [place], [place] [phone] 09/01 appt confirmed [facility] Follow Up 09/02 Patient Education: Patient Medication Summary Completed 09/02/2014 Visit Plan: To [facility] for observat ion to R/O CVA 08/25/2014 Appointment: Huong Osborne WPtel: [address] [place], [place] [phone] ACUTE ILLNESS 08/25/2014 Patient Education: Patient Medication Summary Completed 08/25/2014 Referral: Aaron Jonas WPtel: [facility] [address] [place] location Initiated 04/26/2014 Referral: Brian Srinivasan WPtel: [id number] Initiated 04/20/2014 Appointment: Belia Reid WPtel: [address] [place], [place] [phone] ER Follow UP 04/01/2014 Patient Education: Patient Medication Summary Completed 04/01/2014 Care Plan: MYELOGRAPHY NECK SPINE LOINC : 82617-5 Ordered 04/01/2014 Visit Plan: Continue Symbicort 160 at 2p BID Continue SVNs with duoneb at least QID Finish Levaquin Recheck 1mo on lyrica 03/16/2014 Appointment: Belia Reid WPtel: [address] [place], [place] [phone] 03/15 voicemail FOLLOW UP 03/16/2014 Patient Education: Patient Medication Summary Completed 03/16/2014 Visit Plan: Restart SVNs with duoneb QID Repeat prednisone Levaquin Continue symbicort Keep lyrica at same dose Recheck 1week 03/09/2014 Appointment: Belia Reid WPtel: [address] [place], [place] [phone] FOLLOW UP 03/09/2014 Patient Education: Patient Medication Summary Completed 03/09/2014 Appointment: Belia Reid WPtel: [address] [place] [phone] 03/03 showed up 15 minutes late for appt -- put her on Huong's side for 10:45am FORGIVEN PER DR FOLLOW UP 03/03/2014 Appointment: Huong Osborne WPtel: [address] [place], [place] [phone] [place] FOLLOW UP 03/03/2014 Patient Education: Patient Medication Summary Completed 03/03/2014 Appointment: Huong Osborne WPtel: [address] [place], [place] [phone] ER Follow UP 03/01/2014 Patient Education: Patient Medication Summary Completed 03/01/2014 Visit Plan: Add carafate for this next m onth Increase lyrica to 150mg q HS 02/09/2014 Appointment: Belia Reid WPtel: [address] [place] [phone] Hospital Follow Up 02/09/2014 Patient Education: Patient Medication Summary Completed 02/09/2014 Visit Plan: Increase omeprazole back to 40mg po BID Use requip in AM and add lyrica 75mg q HS Recheck 1mo 12/23/2013 Appointment: Belia Reid WPtel: [address] [place], [place] [phone] FOLLOW UP 12/23/2013 Patient Education: Patient Medication Summary Completed 12/23/2013 Patient Education: Patient Medication Summary Completed 12/04/2013 Appointment: Belia Reid WPtel: [address] [place] [phone] UA 10/30/2013 Patient Education: Patient Medication Summary Completed 10/30/2013 Appointment: Belia Reid WPtel: [address] [place], [place] [phone] UA 10/21/2013 Patient Education: Patient Medication Summary Completed 10/21/2013 Visit Plan: Cryotherapy as above TAC and hydroxyzine to use prn to itching spots and itching SKs Add Advair HFA 115/21 1 p BID 10/05/2013 Appointment: Belia Reid WPtel: [address] [place], [place] [phone] 10/01 pt called and confirmed ACUTE ILLNESS Patient Education: Patient Medication Summary Completed 10/05/2013 Appointment: Belia Reid WPtel: [address] [place] [phone] will pay copay and part of past balance FOLLOW U P 08/04/2013 Patient Education: Patient Medication Summary Completed 08/04/2013 Appointment: Belia Reid WPtel: [address] [place] [phone] [place] INJECTION 07/13/2013 Patient Education: Patient Medication Summary Completed 07/13/2013 Appointment: Huong Osborne WPtel: [address] [place], [place] [phone] ACUTE ILLNESS 07/03/2013 Patient Education: Patient Medication Summary Completed 07/03/2013 Visit Plan: Cipro and culture urine 05/27/2013 Appointment: Huong Osborne WPtel: [address] [place], [place] [phone] 05/26 confirmed appt and notified that balance and scleroscope tester y is due at appt time FOLLOW UP 05/27/2013 Patient Education: Patient Medication Summary Completed 05/27/2013 Appointment: Belia Reid WPtel: [address] [place] [phone] [place] UA 05/25/2013 Patient Education: Patient Medication Summary Completed 05/25/2013 Appointment: Belia Reid WPtel: [address] [place] [phone] US INJECTION 05/04/2013 Patient Education: Patient Medication Summary Completed 05/04/2013 Appointment: Belia Reid WPtel: [address] [place], [place] [phone] US INJECTION 04/17/2013 Patient Education: Patient Medication Summary Completed 04/17/2013 Appointment: Belia Reid WPtel: [address] [place] [phone] US INJECTION 04/15/2013 Appointment: Belia Reid WPtel: [address] [place] [phone] 04/02 vm FOLLOW UP 04/06/2013 Patient Education: Patient Medication Summary Completed 04/06/2013 Visit Plan: Obtain lab results including UA from [facility] 11/10/2012 Appointment: Belia Reid WPtel: [address] [place] [phone] [place] ER Follow UP 11/10/2012 Patient Education: Patient Medication Summary Completed 11/10/2012 Appointment: Belia Reid WPtel: [address] [place], [place] [phone] 10/30/12 patient canceled appt due to fin ances. Offered to work something out, patient declined-LB FOLLOW UP 11/05/2012 Visit Plan: Continue Bystolic at current dose Pt has fwup with Neurology on September 16 09/02/2012 Appointment: Belia Reid WPtel: [address] [place] [address] FOLLOW UP 09/02/2012 Patient Education: Patient Medication Summary Completed 09/02/2012 Visit Plan: Continue bystolic at 5mg chris ly Sees Neurology tomorrow Use oxygen at bedtime 08/04/2012 Appointment: Belia Reid WPtel: [address] [place] [address] FOLLOW UP 08/04/2012 Patient Education: Patient Medication Summary Completed 08/04/2012 Appointment: Belia Reid WPtel: [address] [place] [address] Hospital fwup for 07/21/12. merged appointments FOLLOW UP 07/24/2012 Visit Plan: Start Bystolic 5mg daily for tachycardia Fwup with neurology for further workup Overnight O2 sat 07/21/2012 Appointment: Belia Reid WPtel: [address] [place] [address] Hospital Follow Up 07/21/2012 Patient Education: Patient Medication Summary Completed 07/21/2012 Visit Plan: SVN with Albuterol QID Add A velox 400mg daily Notify if worsens or persists 07/02/2012 Appointment: Belia Reid WPtel: [address] [place] [address] ACUTE ILLNESS 07/02/2012 Patient Education: Patient Medication Summary Completed 07/02/2012 Appointment: Belia Reid WPtel: [address] [place], [place] [phone] INJECTION 06/25/2012 Patient Education: Patient Medication Summary Completed 06/25/2012 Appointment: Belia Reid WPtel: [address] [place] [id number] FOLLOW UP 06/24/2012 Patient Education: Patient Medication Summary Completed 06/24/2012 Appointment: Belia Reid WPtel: [address] [place] [id number] 05/19 left message FOLLOW UP 05/20/2012 Patient [...] po TID 05/08/2012 Appointment: Belia Reid WPtel: [address] [place] [id number] ACUTE ILLNESS 05/08/2012 Patient Education: Patient Medication Summary Completed 05/08/2012 Visit Plan: Continue current meds Contin ue lower dose on pain meds and Diazepam Still waiting on paperwork for botox for Migraines Will restart Neurontin at 600mg po q HS Pt going to stop Depakote due to can't afford 04/22/2012 Appointment: Belia Reid WPtel: [address] [place] [id number] 04/21 Hospital Follow Up 04/22/2012 Patient Education: Patient Medication Summary Completed 04/22/2012 Visit Plan: Injection to shoulder as abo ve Continue current meds Has appointment with neurology on HAs in 02/13/2012 Appointment: Belia Reid WPtel: [address] [place] [phone] Pt does not have $10 copay at [facility] t time - will bring it in next week. Kianna iqbal'ed this. - [place] FOLLOW UP 02/13/2012 Patient Education: Patient Medication Summary Completed 02/13/2012 Visit Plan: Proceed with headache specia list Change nexium to Protonix Phenergan to use prn Sumatriptan to use prn Pt still on Inderal 01/28/2012 Appointment: Belia Reid WPtel: [address] [place] [address] ER Follow UP 01/28/2012 Patient Education: Patient [...] sleep 12/26/2011 Appointment: Belia Reid WPtel: [address] [place] [address] 12/24- appt. confirmed FOLLOW UP 2 Patient Education: Patient Medication Summary Completed 12/26/2011 Appointment: Belia Reid WPtel: [address] [place] [address] [place] FOLLOW UP 11/14/2011 Patient Education: Patient Medication Summary Completed 11/14/2011 Appointment: Belia Reid WPtel: [address] [place], [place] [phone] [place] FOLLOW UP 09/12/2011 Patient Education: Patient Medication Summary Completed 09/12/2011 Visit Plan: Supportive care Decrease Liseth catalino to 50mg q HS Decrease AM dose of Valium to 5mg q HS Use Endocet sparingly 08/15/2011 Appointment: Belia Reid WPtel: [address] [place] [address] ER Follow UP 08/15/2011 Patient Education: Patient Medication Summary Completed 08/15/2011 Appointment: Belia Reid WPtel: [address] [place] [address] [place] Spoke directly to patient yesterday and confirmed the appoin tment. cn ACUTE ILLNESS 08/09/2011 Patient Education: Patient Medication Summary Completed 08/09/2011 Appointment: Belia Reid WPtel: [address] [place] [address] Hospital Follow Up 07/03/2011 Patient Education: Patient Medication Summary Completed 07/03/2011 Appointment: Belia Reid WPtel: [address] [place] [address] FOLLOW UP 06/04/2011 Patient Education: Patient Medication Summary Completed 06/04/2011 Visit Plan: Pt. wants "allergy shot" but in fact wants steroid shot. Will take a break from "generic Zyrtec they are getting from [facility]" and try Singulair for 2 weeks. 05/03/2011 Appointment: Iraida Jones WPtel: [address] [place] [address] ACUTE ILLNESS 05/03/2011 Patient Education: Patient Medication Summary Completed 05/03/2011 Visit Plan: Neurontin 400mg q HS for 1we ek then 800mg q HS Decrease requip to 1mg q HS for 2wks then stop Fwup 2mos 04/05/2011 Appointment: Belia Reid WPtel: [address] [place] [address] FOLLOW UP 04/05/2011 Patient Education: Patient Medication Summary Completed 04/05/2011 Visit Plan: Trial of neurontin in 2wks C ontinue current meds for stomach Pt has procedure with Dr. Ortiz next week for stone removal 03/08/2011 Appointment: Belia Reid WPtel: [address] [place] [address] Hospital Follow Up 03/08/2011 Patient Education: Patient Medication Summary Completed 03/08/2011 Appointment: Belia Reid WPtel: [address] [place] [address] FOLLOW UP 02/19/2011 Visit Plan: reports increased [...] with Flagyl 01/24/2011 Appointment: Iraida Jones WPtel: [address] [place] [address] ACUTE ILLNESS 01/24/2011 Patient Education: Patient Medication Summary Completed 01/24/2011 Appointment: Belia Reid WPtel: [address] [place] [address] [place] FOLLOW UP 01/02/2011 Patient Education: Patient Medication Summary Completed 01/02/2011 Appointment: Belia Reid WPtel: [address] [place] [address] FOLLOW UP 12/12/2010 Appointment: Belia Reid WPtel: [address] [place], [place] [id number] ACUTE ILLNESS 12/07/2010 Patient Education: Patient Medication Summary Completed 12/07/2010 Visit Plan: Increase Buspar to 10mg po B ID 11/16/2010 Appointment: Belia Reid WPtel: [address] [place], [place] [phone] [place] FOLLOW UP 11/16/2010 Patient Education: Patient Medication Summary Completed 11/16/2010 Appointment: Iraida Jones WPtel: [address] [place], [place] [phone] ER Follow UP 11/02/2010 Patient Education: Patient Medication Summary Completed 11/02/2010 Visit Plan: Depo-Medrol/Kenalog given fo r allergies Add BuSpar for anxiety Oxycodone one p.o. q.i.d. for number 120 refilled 10/18/2010 Appointment: Belia Reid WPtel: [address] [place], [place] [phone] [place] FOLLOW UP 10/18/2010 Patient Education: Patient Medication Summary Completed 10/18/2010 Visit Plan: Continue current meds Discus sed epidurals for back vs PT--will proceed with epidurals to thoracolumbar region to see if helps with pain 09/19/2010 Appointment: Belia Reid WPtel: [address] [place], [place] [phone] FOLLOW UP 09/19/2010 Patient Education: Patient Medication Summary Completed 09/19/2010 Visit Plan: DC MS contin Check CT scan t horacic spine Fwup pending above results 09/06/2010 Appointment: Belia Reid WPtel: [address] [place], [place] [phone] FOLLOW UP 09/06/2010 Patient Education: Patient Medication Summary Completed 09/06/2010 Visit Plan: Continue current meds Restar t MS contin 15mg po BID and use oxycodone prn Use daily senokot-s 2 po BID 08/10/2010 Appointment: Belia Reid WPtel: [address] [place], [place] [phone] FOLLOW UP 08/10/2010 Patient Education: Patient Medication Summary Completed 08/10/2010 Visit Plan: Depomedrol/Kenalog given Pt sees ENT later this month Cont current meds Mammo scheduled 05/11/2010 Appointment: Belia Reid WPtel: [address] [place], [place] [phone] FOLLOW UP 05/11/2010 Patient Education: Patient Medication Summary Completed 05/11/2010 Appointment: Belia Reid WPtel: [address] [place], [place] [phone] UA 05/04/2010 Patient Education: Patient Medication Summary Completed 05/04/2010 Visit Plan: Pt sent to lab for UA 04/28/2010 Appointment: Belia Reid WPtel: [address] [place], [place] [phone] UA 04/28/2010 Patient Education: Patient Medication Summary Completed 04/28/2010 Visit Plan: Check CT angiogram of chest Restart Advair Use proair prn Cont current meds Fwup with Card as schedulec 04/06/2010 Appointment: Belia Reidtel: [address] [place] [address] Follow Up 04/06/2010 Patient Education: Patient Medication Summary Completed 04/06/2010 Visit Plan: Paperwork filled out for pow erchair Depomedrol/kenalog given Pt sees ENT in 2wks to assess nasal obstruction problems 02/09/2010 Appointment: Belia Reid WPtel: [address] [place] [address] ESTABLISHED PATIENT 02/09/2010 Patient Education: Patient Medication Summary Completed 02/09/2010 Visit Plan: Change Elavil to Trazadone 1 50mg q HS Diflucan and nystatin for tinea cruris 01/05/2010 Appointment: Belia Reid WPtel: [address] [place] [address] FOLLOW UP 01/05/2010 Patient Education: Patient Medication Summary Completed 01/05/2010 Appointment: Belia Reidtel: [address] [place] [address] FOLLOW UP 12/07/2009 Patient Education: Patient Medication Summary Completed 12/07/2009 Appointment: Belia Reid WPtel: [address] [place] [address] FOLLOW UP 11/22/2009 Visit Plan: Cont current meds and await MRI results from Dr. Meadows's office and his final recommendations Will need to follow-up at later date on deviated septum 11/08/2009 Appointment: Belia Reid WPtel: [address] [place], [place] [phone] FOLLOW UP 11/08/2009 Patient Education: Patient Medication Summary Completed 11/08/2009 Visit Plan: Cont PT/OT See Neurosurgery Cont Tortoise shell brace 10/24/2009 Appointment: Belia Reid WPtel: [address] [place] [address] FOLLOW UP 10/24/2009 Patient Education: Patient Medication Summary Completed 10/24/2009 Appointment: Belia Reid WPtel: [address] [place] [address] Hospital Follow Up 10/17/2009 Appointment: Belia Reid WPtel: [address] [place] [address] ACUTE ILLNESS 07/25/2009 Patient Education: Patient Medication Summary Completed 07/25/2009 Appointment: Belia Reid WPtel: [address] [place] [address] FOLLOW UP 05/26/2009 Patient Education: Patient Medication Summary Completed 05/26/2009 Referral: Chino Balderas WPtel: [address] Referral Initiated Referral: Merry Vale WPtel: [facility] [id number] Vale will review referral and book appointment Completed Referral: Francisco Javier Yoder WPtel: [address] [id number] Patient needs EGD insurance will not inc rease a medication unless this procedure results show a need Completed Referral: Francisco Javier Yoder WPtel: [address] [id number] [place] Referral Historical Reference Referral: Francisco Javier Yoder WPtel: [address] [place] [address] [place] Referral Initiated Instructions Comment . Xrays [...] last date of carotid doppler from her examination proctor and update if needed . Long discussion [...] from "generic Zyrtec they are getting from [employer]" and try Singulair for 2 weeks. . [...]
--- OUTSIDE RECORDS SUMMARY | 2019-06-23 18:01 | XMS REPORT | CCD ---
Author Author Diana Reid D.O. Organization [facility] Address [address] [place] [id number] Phone Care Team Providers Care Lapping Machine Tender Name Role Phone Belia Reid D.O., PP Unavailable CCM Unavailable Summary Purpose Interface Exchange Insurance Providers Payer name Policy type / Coverage type Covered libertarian ID Effective Begin Date Effective End Date [employer] MEDICARE Medicare Part B [id number] 2019 Unknown Family History Family History data not found Social History Social History Element Codes Description Effective Dates Tobacco history SNOMED CT: 015871176 Nonsmoker 09/13/2010 Allergies, Adverse Reactions, Alerts Substance Reaction Codes Entered Date Inactivated Date Status Eggs reaction [id number] 09/15/2015 No Inactive Date Active _ Unknown [...] Instructions hydroxyzine HCl 25 mg tablet RxNorm: 466720 1 Tablet(s) Oral QPM for itching/aniety 05/13/2019 07/28/2019 Active gabapentin 600 mg tablet RxNorm: 783128 1 Tablet(s) Oral QD 020 06/05/2019 Active Singulair 10 mg tablet RxNorm: 025020 1 Tablet(s) Oral QPM 05/06/19 20 05/12/2019 Inactive Valium 5 mg tablet RxNorm: 127177 1 Tablet(s) Oral QPM for stri joao/muscle spasm 04/29/2019 05/29/2019 Active baclofen 10 mg tablet RxNorm: 805621 1 Tablet(s) Oral QPM for s pasm/neck pain 04/24/2019 05/23/2019 Active baclofen 10 mg tablet RxNorm: 854751 1 Tablet(s) Oral QPM for s pasm/neck pain 04/24/2019 04/23/2019 Inactive Novolin N NPH U-100 Insulin isophane 100 unit/mL subcu taneous susp RxNorm: 560527 23 Unit(s) Subcutaneous two times a day 04/20/2019 No Stop Date A ctive cyclobenzaprine 5 mg tablet RxNorm: 596906 1 Tablet(s) Oral three times a day as needed 04/16/2019 04/23/2019 Inactive hydroxyzine HCl 25 mg tablet RxNorm: 205855 1 Tablet(s) Oral three times a day for itching/aniety 04/08/2019 05/12/2019 Inactive gabapentin 600 mg tablet RxNorm: 872468 1 Tablet(s) Oral two ti mes a day 04/08/2019 05/05/2019 Inactive gabapentin 600 mg tablet RxNorm: 040316 1 Tablet(s) Oral two ti mes a day 04/08/2019 04/07/2019 Inactive Novolin N NPH U-100 Insulin isophane 100 unit/mL subcu taneous susp RxNorm: 440704 10 Unit(s) Subcutaneous two times a day 03/03/2019 04/19/2019 I nactive gabapentin 300 mg capsule RxNorm: 983092 1 Capsule(s) O ral every night at bedtime for neuropathy 02/26/2019 04/07/2019 Inactive gabapentin 300 mg capsule RxNorm: 453152 1 Capsule(s) O ral every night at bedtime for neuropathy 02/20/2019 02/25/2019 Inactive pramipexole 1 mg tablet RxNorm: 089307 1 Tablet(s) Oral QPM FOR RESTLESS LEGS (REPLACES REQUIP) 02/12/2019 02/07/2020 Active buspirone 5 mg tablet RxNorm: 412281 TAKE 1 TABLET THREE TIMES MILDRED Y 02/12/2019 05/12/2019 Inactive Lexapro 10 mg tablet RxNorm: 619373 TAKE 1 TABLET EVERY DAY FOR MOO D 01/31/2019 No Stop Date Active Ativan 0.5 mg tablet RxNorm: 578831 TAKE 1 TABLET BY MO UT THREE TIMES DAILY NEEDED FOR ANXIETY 01/26/2019 04/28/2019 Inactive Ativan 0.5 mg tablet RxNorm: 852681 TAKE 1 TABLET BY MO UTH THREE TIMES DAILY NEEDED FOR ANXIETY 01/05/2019 01/05/2019 Inactive Levaquin 500 mg tablet RxNorm: 819106 1 Tablet(s) Oral QD 12/25/2018 12/24/2018 Inactive Levaquin 500 mg tablet RxNorm: 729143 1 Tablet(s) Oral QD 12/25/2018 01/04/2019 Inactive baclofen 10 mg tablet RxNorm: 252661 1 Tablet(s) Oral three maico es a day 11/20/2018 01/19/2019 Inactive Ativan 0.5 mg tablet RxNorm: 750440 TAKE 1 TABLET BY [facility] THREE TIMES DAILY NEEDED FOR ANXIETY 11/20/2018 01/04/2019 Inactive gabapentin 300 mg capsule RxNorm: 453819 1 Capsule(s) O ral every night at bedtime for neuropathy 11/20/2018 12/20/2018 Inactive Lexapro 10 mg tablet RxNorm: 685919 1 Tablet(s) PO QD for mood 07/201801/30/2019 Inactive Zithromax Z-Lj 250 mg tablet RxNorm: 741296 Tablet(s) PO take as directed 11/04/2018 11/19/2018 Inactive Insulin Syringe 1 mL 29 gauge x 1/2" RxNorm: 2 s yringes daily with insulin Dx: E11.65 10/08/2018 No Stop Date Active gabapentin 300 mg capsule RxNorm: 812510 1 Capsule(s) PO QHS fo r neuropathy 09/18/2018 10/17/2018 Inactive cyclobenzaprine 5 mg tablet RxNorm: 557201 1 Tablet(s) PO TID a s needed 09/09/2018 09/08/2018 Inactive cyclobenzaprine 5 mg tablet RxNorm: 428118 1 Tablet(s) PO TID a s needed 09/09/2018 10/08/2018 Inactive prednisone 20 mg tablet RxNorm: 865585 1 Tablet(s) PO QD 09/08/2018 0 09/12/2018 Inactive Lantus Solostar U-100 Insulin 100 unit/mL (3 mL) subcu taneous pen RxNorm: 966168 55 Unit(s) SQ QAM 08/28/2018 11/03/2018 Inactive hydroxyzine HCl 25 mg tablet RxNorm: 704934 1 Tablet(s) PO QHS for itching 08/20/2018 05/12/2019 Inactive Lexapro 10 mg tablet RxNorm: 550077 1 Tablet(s) PO QD for mood 08/0210/18/2018 Inactive sumatriptan 100 mg tablet RxNorm: 809413 1 Tablet(s) PO at headache onset. May repeat 1 in two hours if headache remains. Max of 2 per 24 hours 04/02/2018 05/20/2018 Inactive Diflucan 150 mg tablet RxNorm: 096417 1 Tablet(s) PO QD 03/18/2018 Inactive Diflucan 150 mg tablet RxNorm: 173123 1 Tablet(s) PO QD 03/18/2018 Inactive Flagyl 500 mg tablet RxNorm: 806188 1 Tablet(s) PO TID 03/17/2018 Inactive Levaquin 500 mg tablet RxNorm: 047039 1 Tablet(s) PO QD 03/17/2018 Inactive Levaquin 500 mg tablet RxNorm: 106840 1 Tablet(s) PO QD 03/17/2018 Inactive Flagyl 500 mg tablet RxNorm: 513279 1 Tablet(s) PO TID 03/17/2018 Inactive ketoconazole 200 mg tablet RxNorm: 886119 1 Tablet(s) PO QD 019 03/19/2018 Inactive Celebrex 200 mg capsule RxNorm: 993763 1 Capsule(s) PO BID 02/06/20 18 05/20/2018 Inactive tramadol 50 mg tablet RxNorm: 082312 1 Tablet(s) PO TID as needed 1 04/08/2017 05/20/2018 Inactive gabapentin 300 mg capsule RxNorm: 780914 1 Capsule(s) PO BID 201705/20/2018 Inactive Diflucan 150 mg tablet RxNorm: 998664 1 Tablet(s) PO QD 01/20/2018 Inactive pramipexole 1 mg tablet RxNorm: 913136 1 Tablet(s) PO Q PM FOR RESTLESS LEGS (REPLACES REQUIP) 01/08/2018 02/11/2019 Inactive cyclobenzaprine 10 mg tablet RxNorm: 904316 1 Tablet(s) PO TID as needed for muscle spasm 12/17/2017 05/20/2018 Inactive pramipexole 1 mg tablet RxNorm: 141794 TAKE 1 TABLET BY MOUTH ONCE DAILY IN THE EVENING FOR RESTLESS LEGS (REPLACES REQUIP) 12/04/2017 01/05/2018 Inac tive Amaryl 4 mg tablet RxNorm: 600657 1 Tablet(s) PO BID replaces 2mg 0 11/05/2017 12/16/2017 Inactive Singulair 10 mg tablet RxNorm: 336166 1 Tablet(s) PO QHS for al lergies/lungs 10/30/2017 12/16/2017 Inactive Diflucan 100 mg tablet RxNorm: 661017 1 Tablet(s) PO QD 10/23/2017 Inactive Ativan 0.5 mg tablet RxNorm: 347657 TAKE 1 TABLET BY MOUTH THRE E TIMES DAILY 08/30/2017 11/20/2018 Inactive buspirone 5 mg tablet RxNorm: 790074 1 Tablet(s) PO TID 07/11/2017 Inactive propranolol 60 mg tablet RxNorm: 851411 1 Tablet(s) PO BID repl aces 40mg dose 06/26/2017 12/16/2017 Inactive Amaryl 4 mg tablet RxNorm: 664951 1 Tablet(s) PO BID replaces 2mg 0 06/12/2017 11/05/2017 Inactive omeprazole 40 mg capsule,delayed release RxNorm: 996218 1 Capsule(s) PO BID TAKE ONE CAPSULE BY MOUTH TWICE DAILY 05/30/2017 11/25/2017 Inactive pramipexole 1 mg tablet RxNorm: 430054 1 Tablet(s) PO Q PM for restless legs--replaces requip 05/30/2017 11/25/2017 Inactive amitriptyline 50 mg tablet RxNorm: 917991 1 Tablet(s) PO QHS 201709/16/2017 Inactive Diflucan 100 mg tablet RxNorm: 385518 1 Tablet(s) PO BID 05/07/2017 0 05/20/2017 Inactive nystatin (bulk) 100 million unit powder RxNorm: Application TO P BID 05/07/2017 05/20/2018 Inactive cholestyramine (with sugar) 4 gram oral powder RxNorm: 875048 1 Unit Dose PO QD 05/07/2017 01/20/2018 Inactive Ativan 0.5 mg tablet RxNorm: 508107 TAKE ONE TABLET BY MOUTH TH REE TIMES DAILY 05/01/2017 09/02/2017 Inactive Trulicity 1.5 mg/0.5 mL subcutaneous pen injector RxNorm: 15 06360 1 Unit Dose SQ WEEKLY 02/22/2017 03/23/2017 Inactive doxycycline hyclate 100 mg capsule RxNorm: 5500354 1 Capsule(s) PO BID 01/23/2017 02/05/2017 Inactive Amaryl 4 mg tablet RxNorm: 756650 1 Tablet(s) PO BID replaces 2mg 1 03/25/2016 05/22/2017 Inactive magnesium oxide 400 mg capsule RxNorm: 459097 1 Capsule(s) PO QD 07/18/2017 Inactive Ativan 0.5 mg tablet RxNorm: 291630 TAKE ONE TABLET BY MOUTH TH REE TIMES DAILY 01/17/2017 05/01/2017 Inactive Amaryl 2 mg tablet RxNorm: 312807 1 Tablet(s) PO BID 12/27/201601/22 Inactive Amaryl 2 mg tablet RxNorm: 699015 1 Tablet(s) PO BID 12/26/201612/26 Inactive Ativan 0.5 mg tablet RxNorm: 137588 TAKE ONE TABLET BY MOUTH TH REE TIMES DAILY 12/05/2016 01/18/2017 Inactive pramipexole 1 mg tablet RxNorm: 937233 1 Tablet(s) PO Q PM for restless legs--replaces requip 11/26/2016 05/30/2017 Inactive Mobic 15 mg tablet RxNorm: 057693 1 Tablet(s) PO QD 10/08/20162016 Inactive cyclobenzaprine 5 mg tablet RxNorm: 464720 1/2- 1 Tablet(s) PO TID 10/08/2016 10/17/2016 Inactive Ativan 0.5 mg tablet RxNorm: 317967 1 Tablet(s) PO TID 09/20/201607/2016 Inactive amitriptyline 50 mg tablet RxNorm: 519485 1 Tablet(s) PO QHS 201605/30/2017 Inactive propranolol 60 mg tablet RxNorm: 321759 1 Tablet(s) PO BID repl aces 40mg dose 09/19/2016 06/26/2017 Inactive Ativan 0.5 mg tablet RxNorm: 057983 1 Tablet(s) PO TID 08/20/2016 Inactive omeprazole 40 mg capsule,delayed release RxNorm: 847348 1 Capsule(s) PO BID TAKE ONE CAPSULE BY MOUTH TWICE DAILY 08/20/2016 05/30/2017 Inactive amitriptyline 50 mg tablet RxNorm: 311699 1 Tablet(s) PO QHS 201609/18/2016 Inactive pramipexole 1 mg tablet RxNorm: 192304 1 Tablet(s) PO Q PM for restless legs--replaces requip 07/23/2016 11/25/2016 Inactive Amaryl 2 mg tablet RxNorm: 045709 1 Tablet(s) PO BID 07/23/201612/27 Inactive propranolol 40 mg tablet RxNorm: 747636 1 Tablet(s) PO BID 07/13/19 17 09/18/2016 Inactive Ativan 0.5 mg tablet RxNorm: 195215 1 Tablet(s) PO QID 06/19/2016 Inactive Amaryl 2 mg tablet RxNorm: 999845 1 Tablet(s) PO BID 06/19/201607/22 Inactive Ativan 0.5 mg tablet RxNorm: 998765 1 Tablet(s) PO QID 06/19/2016 Inactive buspirone 5 mg tablet RxNorm: 957955 1 Tablet(s) PO TID 06/19/2016 Inactive Ativan 0.5 mg tablet RxNorm: 162387 1 Tablet(s) PO BID 05/24/2016 Inactive buspirone 5 mg tablet RxNorm: 932620 1 Tablet(s) PO TID 05/23/2016 Inactive Macrobid 100 mg capsule RxNorm: 785800 1 Capsule(s) PO QOD 05/03/1910/07/2016 Inactive pramipexole 1 mg tablet RxNorm: 196674 Tablet(s) 1 Tabl et(s) PO QPM for restless legs--replaces requip 04/26/2016 06/24/2016 Inactive propranolol 40 mg tablet RxNorm: 920192 TAKE ONE TABLET BY MOUT H TWICE DAILY 04/26/2016 06/24/2016 Inactive Detrol LA 4 mg capsule,extended release RxNorm: 063031 1 Capsul e(s) PO QHS 04/03/2016 05/02/2016 Inactive prednisone 20 mg tablet RxNorm: 432056 1 Tablet(s) PO QD 02/29/2016 0 03/04/2016 Inactive Actos 30 mg tablet RxNorm: 151109 TAKE ONE TABLET BY MOUTH ONCE DAILY 02/27/2016 12/19/2016 Inactive clindamycin 300 mg capsule RxNorm: 135228 1 Capsule(s) PO TID 02/0102/08/2016 Inactive Flagyl 500 mg tablet RxNorm: 443654 1 Tablet(s) PO BID 02/02/201609/2015 Inactive omeprazole 40 mg capsule,delayed release RxNorm: 023757 TAKE ONE CAPSULE BY MOUTH TWICE DAILY 01/15/2016 07/12/2016 Inactive gabapentin 300 mg capsule RxNorm: 824335 1 Capsule(s) PO QAM an d 2 po q HS 01/05/2016 06/18/2016 Inactive gabapentin 300 mg capsule RxNorm: 749578 1 Capsule(s) P O BID 1 Capsule(s) PO QHS 12/05/2015 01/04/2016 Inactive cyclobenzaprine 10 mg tablet RxNorm: 750743 1 Tablet(s) PO TID for spasm as needed for muscle spasm 12/05/2015 06/18/2016 Inactive ciprofloxacin 250 mg tablet RxNorm: 487782 1 Tablet(s) PO BID 12/0412/14/2015 Inactive pramipexole 1 mg tablet RxNorm: 152677 Tablet(s) 1 Tabl et(s) PO QPM for restless legs--replaces requip 11/07/2015 11/26/2016 Inactive Januvia 100 mg tablet RxNorm: 932606 1 Tablet(s) PO QD 10/26/201504/2015 Inactive propranolol 40 mg tablet RxNorm: 399995 TAKE ONE TABLET BY MOUT H TWICE DAILY 10/25/2015 04/21/2016 Inactive gabapentin 300 mg capsule RxNorm: 556570 1 Capsule(s) PO QHS 201512/04/2015 Inactive Cipro 500 mg tablet RxNorm: 979677 1 Tablet(s) PO BID 10/05/201511/2015 Inactive pramipexole 1 mg tablet RxNorm: 166908 Tablet(s) 1 Tabl et(s) PO QPM for restless legs--replaces requip 10/04/2015 11/02/2015 Inactive propranolol 40 mg tablet RxNorm: 109614 TAKE ONE TABLET BY MOUT H TWICE DAILY 09/26/2015 10/24/2015 Inactive Amaryl 2 mg tablet RxNorm: 639425 1 Tablet(s) PO QD 09/15/20152016 Inactive gabapentin 300 mg capsule RxNorm: 412261 1 Capsule(s) PO QHS 201510/14/2015 Inactive buspirone 5 mg tablet RxNorm: 124416 1 Tablet(s) PO TID 09/15/2015 Inactive pramipexole 1 mg tablet RxNorm: 622506 Tablet(s) 1 Tabl et(s) PO QPM for restless legs--replaces requip 09/08/2015 10/03/2015 Inactive pramipexole 1 mg tablet RxNorm: 117132 1 Tablet(s) PO Q PM for restless legs--replaces requip 08/08/2015 09/08/2015 Inactive Amaryl 2 mg tablet RxNorm: 404123 1 Tablet(s) PO QD 07/07/20152015 Inactive pramipexole 1 mg tablet RxNorm: 477058 1 Tablet(s) PO Q PM for restless legs--replaces requip 07/05/2015 08/03/2015 Inactive ropinirole 2 mg tablet RxNorm: 247941 TAKE ONE TABLET BY MOUTH TWICE DAILY 05/09/2015 09/14/2015 Inactive Diflucan 100 mg tablet RxNorm: 592375 1 Tablet(s) PO QD 03/30/2015 Inactive propranolol 40 mg tablet RxNorm: 642935 1 Tablet(s) PO BID 02/24/2008/21/2015 Inactive [SAVINGS FOR UNINSURED PATIE NTS -- BIN:016879, PCN: ASPROD1, Group: AME08, ID# [id number], Process claim through [employer], for questions: . THIS IS NOT INSURANCE.] Flagyl 500 mg tablet RxNorm: 284824 1 Tablet(s) PO BID 02/03/201502/2015 Inactive Cipro 500 mg tablet RxNorm: 629270 1 Tablet(s) PO BID 02/03/201502/01 Inactive Carafate 1 gram tablet RxNorm: 678275 1 Tablet(s) PO QID make i nto slurry 02/03/2015 09/14/2015 Inactive ondansetron HCl 4 mg tablet RxNorm: 252552 1 Tablet(s) PO Q4H as needed for nausea 12/29/2014 01/04/2016 Inactive Diflucan 100 mg tablet RxNorm: 607455 1 Tablet(s) PO QD 12/29/2014 Inactive Keflex 500 mg capsule RxNorm: 370825 1 Capsule(s) PO TID 12/29/2014 1 03/09/2014 Inactive omeprazole 40 mg capsule,delayed release RxNorm: 828817 1 Capsu le(s) PO BID 12/27/2014 12/21/2015 Inactive [SAVINGS FOR UNINSUR ED PATIENTS -- BIN:565374, PCN: ASPROD1, Group: AME08, ID# [id number], Process claim through [employer], for questions: . THIS IS NOT INSURANCE.] ropinirole 2 mg tablet RxNorm: 158103 1 Tablet(s) PO BID 09/29/2014 0 03/27/2015 Inactive [SAVINGS FOR UNINSURED PATIENTS -- BIN:0 06140, PCN: ASPROD1, Group: AME08, ID# [id number], Process claim through [employer], for questions: . THIS IS NOT INSURANCE.] buspirone 5 mg tablet RxNorm: 724740 1 Tablet(s) PO TID 09/17/2014 Inactive ropinirole 2 mg tablet RxNorm: 409539 1 Tablet(s) PO BID 09/02/2014 0 09/28/2014 Inactive [SAVINGS FOR UNINSURED PATIENTS -- BIN:0 80344, PCN: ASPROD1, Group: AME08, ID# [id number], Process claim through [employer], for questions: . THIS IS NOT INSURANCE.] Zyrtec 10 mg tablet RxNorm: 4241373 1 Tablet(s) PO QD 09/02/201412/02 Inactive propranolol 40 mg tablet RxNorm: 397652 1 Tablet(s) PO BID 07/21/19 15 02/23/2015 Inactive [SAVINGS FOR UNINSURED PATIE NTS -- BIN:898862, PCN: ASPROD1, Group: AME08, ID# [id number], Process claim through [employer], for questions: . THIS IS NOT INSURANCE.] ropinirole 2 mg tablet RxNorm: 890249 1 Tablet(s) PO QHS 05/14/2014 0 09/01/2014 Inactive [SAVINGS FOR UNINSURED PATIENTS -- BIN:0 52136, PCN: ASPROD1, Group: AME08, ID# [id number], Process claim through [employer], for questions: . THIS IS NOT INSURANCE.] cyclobenzaprine 10 mg tablet RxNorm: 543196 1 Tablet(s) PO QHS for spasm 04/06/2014 09/01/2014 Inactive ipratropium-albuterol 0.5 mg-3 mg(2.5 mg base)/3 mL ne bulization soln RxNorm: 6119306 1 Unit Dose INH Q4H 03/16/2014 No Stop Date Active [SAVINGS FOR UNINSURED PATIENTS -- BIN:086531, PCN: ASPROD1, Group: AME08, ID# [id number], Process claim through [employer], for questions: . THIS IS NOT INSURANCE.] prednisone 20 mg tablet RxNorm: 122550 1 Tablet(s) PO BID 03/09/2014 03/15/2014 Inactive [SAVINGS FOR UNINSURED PATIENTS -- BIN:0 08988, PCN: ASPROD1, Group: AME08, ID# [id number], Process claim through [employer], for questions: . THIS IS NOT INSURANCE.] ipratropium-albuterol 0.5 mg-3 mg(2.5 mg base)/3 mL ne bulization soln RxNorm: 1670073 1 Unit Dose INH Q4H 03/09/2014 03/15/2014 Inactive [SAVINGS FOR UNINSURED PATIENTS -- BIN:930569, PCN: ASPROD1, Group: AME08, ID# [id number], Process claim through [employer], for questions: . THIS IS NOT INSURANCE.] Levaquin 500 mg tablet RxNorm: 423054 1 Tablet(s) PO QD 03/09/2014 Inactive [SAVINGS FOR UNINSURED PATIENTS -- BIN:0 28720, PCN: ASPROD1, Group: AME08, ID# [id number], Process claim through [employer], for questions: . THIS IS NOT INSURANCE.] Carafate 1 gram tablet RxNorm: 824100 1 Tablet(s) PO AC & HS ma ke into slurry 02/09/2014 09/01/2014 Inactive [SAVINGS FOR UNINSUR ED PATIENTS -- BIN:400855, PCN: ASPROD1, Group: AME08, ID# [id number], Process claim through [employer], for questions: . THIS IS NOT INSURANCE.] Fioricet 50 mg-300 mg-40 mg capsule RxNorm: 0002487 1-2 Capsule(s) PO Q4H as needed for headache --max of 6 a day 02/09/2014 09/01/2014 Inactive [SAVINGS FOR UNINSURED PATIENTS -- BIN:891564, PCN: ASPROD1, Group: AME08, ID# [id number], Process claim through [employer], for questions: . THIS IS NOT INSURANCE.] propranolol 40 mg tablet RxNorm: 815969 1 Tablet(s) PO BID 12/08/19 14 06/04/2014 Inactive [SAVINGS FOR UNINSURED PATIE NTS -- BIN:746137, PCN: ASPROD1, Group: AME08, ID# [id number], Process claim through [employer], for questions: . THIS IS NOT INSURANCE.] buspirone 5 mg tablet RxNorm: 978918 1 Tablet(s) PO TID 12/02/2013 Inactive omeprazole 40 mg capsule,delayed release RxNorm: 879381 1 Capsu le(s) PO BID 11/25/2013 11/19/2014 Inactive [SAVINGS FOR UNINSUR ED PATIENTS -- BIN:462061, PCN: ASPROD1, Group: AME08, ID# [id number], Process claim through [employer], for questions: . THIS IS NOT INSURANCE.] ropinirole 2 mg tablet RxNorm: 649530 1 Tablet(s) PO QHS 11/10/2013 0 05/08/2014 Inactive [SAVINGS FOR UNINSURED PATIENTS -- BIN:0 60982, PCN: ASPROD1, Group: AME08, ID# [id number], Process claim through [employer], for questions: . THIS IS NOT INSURANCE.] Cipro 500 mg tablet RxNorm: 071765 1 Tablet(s) PO BID 10/21/201312/03 Inactive [SAVINGS FOR UNINSURED PATIENTS -- BIN:0 79820, PCN: ASPROD1, Group: AME08, ID# [id number], Process claim through [employer], for questions: . THIS IS NOT INSURANCE.] hydroxyzine HCl 25 mg tablet RxNorm: 287433 1 Tablet(s) PO Q4-6 H as needed 10/05/2013 01/04/2016 Inactive [SAVINGS FOR UNINSUR ED PATIENTS -- BIN:234358, PCN: ASPROD1, Group: AME08, ID# [id number], Process claim through [employer], for questions: . THIS IS NOT INSURANCE.] triamcinolone acetonide 0.1 % topical cream RxNorm: 5823220 Appl ication TOP BID 10/05/2013 09/01/2014 Inactive [SAVINGS FOR UNINSUR ED PATIENTS -- BIN:904446, PCN: ASPROD1, Group: AME08, ID# [id number], Process claim through [employer], for questions: . THIS IS NOT INSURANCE.] albuterol sulfate HFA 90 mcg/actuation aerosol inhaler RxNor m: 4484598 2 Puff(s) INH Q4H as needed for cough 10/01/2013 12/22/2013 Inactive [MAKSIM INGS FOR UNINSURED PATIENTS -- BIN:305345, PCN: ASPROD1, Group: AME08, ID# [id number], Process claim through [employer], for questions: . THIS IS NOT INSURANCE.] propranolol 40 mg tablet RxNorm: 623853 1 Tablet(s) PO BID 09/02/19 14 11/29/2013 Inactive [SAVINGS FOR UNINSURED PATIE NTS -- BIN:138274, PCN: ASPROD1, Group: AME08, ID# [id number], Process claim through [employer], for questions: . THIS IS NOT INSURANCE.] propranolol 40 mg tablet RxNorm: 014757 1 Tablet(s) PO BID 08/05/19 14 08/31/2013 Inactive [SAVINGS FOR UNINSURED PATIE NTS -- BIN:816358, PCN: ASPROD1, Group: AME08, ID# [id number], Process claim through [employer], for questions: . THIS IS NOT INSURANCE.] Toprol XL 50 mg tablet,extended release RxNorm: 594168 1 Tablet (s) PO QHS 07/23/2013 08/03/2013 Inactive Macrobid 100 mg capsule RxNorm: 149012 1 Capsule(s) PO BID 07/04/19 14 07/09/2013 Inactive Toprol XL 50 mg tablet,extended release RxNorm: 949179 1 Tablet (s) PO QHS 05/28/2013 06/26/2013 Inactive ciprofloxacin 500 mg tablet RxNorm: 142380 1 Tablet(s) PO BID 05/2706/02/2013 Inactive Bystolic 5 mg tablet RxNorm: 966664 1 Tablet(s) PO QD 05/27/201305/03 Inactive ropinirole 2 mg tablet RxNorm: 368648 1 Tablet(s) PO QHS 04/22/2013 0 11/09/2013 Inactive Cipro 250 mg tablet RxNorm: 185541 1 Tablet(s) PO BID 04/06/201311/2013 Inactive ropinirole 2 mg tablet RxNorm: 494860 1 Tablet(s) PO QHS 02/17/2013 0 04/21/2013 Inactive Amaryl 2 mg tablet RxNorm: 583356 1 Tablet(s) PO QAM 11/11/201211/10 Inactive Amaryl 2 mg tablet RxNorm: 919690 1 Tablet(s) PO QAM 11/11/201204/05 Inactive omeprazole 40 mg capsule,delayed release RxNorm: 971554 1 Capsu le(s) PO BID 08/14/2012 08/08/2013 Inactive Bystolic 5 mg tablet RxNorm: 836015 1 Tablet(s) PO QD 08/14/201205/03 Inactive propranolol 60 mg tablet RxNorm: 320441 Tablet(s) PO TAKE 1 TAB LET TWICE DAILY 08/01/2012 09/01/2012 Inactive Bystolic 5 mg tablet RxNorm: 838392 1 Tablet(s) PO QD 07/21/201207/02 Inactive Bystolic 5 mg tablet RxNorm: 312313 1 Tablet(s) PO QD 07/21/201207/03 Inactive Prilosec 40 mg capsule,delayed release RxNorm: 673351 1 Capsule (s) PO BID 06/24/2012 07/21/2012 Inactive buspirone 10 mg tablet RxNorm: 530208 1 Tablet(s) PO TID 05/08/2012 0 05/23/2016 Inactive Valium 10 mg tablet RxNorm: 514413 1 Tablet(s) PO BID 04/02/201207/03 Inactive Endocet 10 mg-325 mg tablet RxNorm: 3168048 1 Tablet(s) PO QID 03/0607/21/2012 Inactive as needed for severe pain Valium 10 mg tablet RxNorm: 382884 1 Tablet(s) PO BID 02/27/2012 No S top Date Active Endocet 10 mg-325 mg tablet RxNorm: 9255079 1 Tablet(s) PO QID 02/0203/27/2012 Inactive as needed for severe pain Endocet 10 mg-325 mg tablet RxNorm: 2350013 1 Tablet(s) PO QID 01/0302/26/2012 Inactive as needed for severe pain Valium 10 mg tablet RxNorm: 424790 1 Tablet(s) PO BID 01/29/2012 No S top Date Active Protonix 40 mg tablet,delayed release RxNorm: 150151 1 Tablet(s ) PO QD 01/28/2012 07/21/2012 Inactive metformin ER 500 mg tablet,extended release 24 hr RxNorm: 86 0977 1 Tablet(s) PO QD 12/26/2011 07/20/2012 Inactive Trazadone 150 mg Tablet RxNorm: 1 Tablet(s) PO QHS prn sleep 1 04/23/2012 Inactive Endocet 10 mg-325 mg tablet RxNorm: 4505555 1 Tablet(s) PO QID 12/0301/24/2012 Inactive as needed for severe pain Nexium 40 mg capsule,delayed release RxNorm: 042479 1 Capsule(s ) PO QD 12/26/2011 01/27/2012 Inactive Symbicort 160 mcg-4.5 mcg/actuation HFA Aerosol Inhaler RxNo rm: 6702645 2 Puff(s) INH BID 12/04/2011 07/21/2012 Inactive Endocet 10 mg-325 mg tablet RxNorm: 8778818 1 Tablet(s) PO QID 11/0312/25/2011 Inactive as needed for severe pain metformin ER 500 mg tablet,extended release 24 hr RxNorm: 86 0977 1 Tablet(s) PO QD 11/20/2011 12/19/2011 Inactive metformin ER 500 mg tablet,extended release 24 hr RxNorm: 86 0977 1 Tablet(s) PO QD 11/20/2011 11/19/2011 Inactive amitriptyline 100 mg tablet RxNorm: 259051 Tablet(s) PO QHS 1 a nd 1/2 tabs QHS 11/12/2011 11/13/2011 Inactive Valium 10 mg tablet RxNorm: 358087 1 Tablet(s) PO BID 11/09/2011 No S top Date Active Endocet 10 mg-325 mg tablet RxNorm: 7303483 1 Tablet(s) PO QID 10/0211/14/2011 Inactive as needed for severe pain Aricept 10 mg Tab RxNorm: 416187 1 Tablet(s) PO QD 10/05/2011 013 Inactive Valium 10 mg tablet RxNorm: 126621 1 Tablet(s) PO BID 10/05/2011 No S top Date Active Endocet 10 mg-325 mg Tab RxNorm: 8990859 1 Tablet(s) PO QID 012 10/09/2011 Inactive as needed for severe pain Aricept 10 mg Tab RxNorm: 065844 1 Tablet(s) PO QD 08/14/2011 012 Inactive Endocet 10 mg-325 mg Tab RxNorm: 2361587 1 Tablet(s) PO QID 012 08/31/2011 Inactive as needed for severe pain Valium 10 mg Tab RxNorm: 384461 1 Tablet(s) PO BID 08/02/2011 No Stop Date Active propranolol 60 mg tablet RxNorm: 461323 1 Tablet(s) PO BID 07/26/19 12 09/11/2011 Inactive amitriptyline 100 mg tablet RxNorm: 418363 Tablet(s) PO QHS 1 a nd /2 tabs QHS 06/20/2011 09/11/2011 Inactive buspirone 10 mg tablet RxNorm: 262689 1 Tablet(s) PO BID 06/18/2011 0 09/15/2011 Inactive propranolol 60 mg Tab RxNorm: 016774 1 Tablet(s) PO BID 06/18/2011 Inactive gabapentin 800 mg Tab RxNorm: 777713 1 Tablet(s) PO BID 06/18/2011 Inactive ropinirole 2 mg tablet RxNorm: 287950 1 Tablet(s) PO QHS 05/29/2011 0 08/26/2011 Inactive trimethoprim 100 mg Tab RxNorm: 100047 1 Tablet(s) PO QHS 05/29/2011 07/21/2012 Inactive Endocet 10 mg-325 mg Tab RxNorm: 9320534 1 Tablet(s) PO QID 012 2011 Inactive as needed for severe pain Valium 10 mg Tab RxNorm: 023415 1 Tablet(s) PO QHS N eed to take med as prescribed. this is a 40 day RX. No early fills. 05/17/2011 05/20/2018 Inactive propranolol 60 mg Tab RxNorm: 280886 1 Tablet(s) PO BID 04/16/2011 Inactive Neurontin 800 mg Tab RxNorm: 157252 1 Tablet(s) PO QHS 04/05/201103/2011 Inactive Endocet 10 mg-325 mg Tab RxNorm: 7801107 1 Tablet(s) PO QID 012 05/02/2011 Inactive as needed for severe pain oxycodone-acetaminophen 10 mg-325 mg tablet RxNorm: 5408257 1 Ta blet(s) PO Q4H 03/28/2011 05/19/2012 Inactive Valium 10 mg Tab RxNorm: 092988 1 Tablet(s) PO QHS 03/28/2011 012 Inactive buspirone 10 mg Tab RxNorm: 647475 1 Tablet(s) PO BID 03/27/201106/02 Inactive propranolol 60 mg Tab RxNorm: 015901 1 Tablet(s) PO BID 03/19/2011 Inactive Klor-Con M20 20 mEq Tab RxNorm: 5515717 1 Tablet(s) PO QD 03/19/2011 07/21/2012 Inactive Aricept 10 mg Tab RxNorm: 902461 1 Tablet(s) PO QD 02/27/2011 012 Inactive propranolol 60 mg Tab RxNorm: 281749 1 Tablet(s) PO BID 02/19/2011 Inactive omeprazole 40 mg capsule,delayed release RxNorm: 623937 1 Capsu le(s) PO BID 01/24/2011 05/23/2011 Inactive clindamycin 300 mg capsule RxNorm: 713055 1 Capsule(s) PO TID 01/2402/02/2011 Inactive propranolol 60 mg Tab RxNorm: 348105 1 Tablet(s) PO BID 01/22/2011 No Stop Date Active nystatin 100,000 unit/g Topical Cream RxNorm: 181700 Applicatio n TOP BID 01/15/2011 01/14/2011 Inactive to rash for 2-4 week s Diflucan 200 mg Tab RxNorm: 377659 1 Tablet(s) PO QD 01/15/201101/28 Inactive buspirone 10 mg Tab RxNorm: 234713 1 Tablet(s) PO BID 01/08/201103/05 Inactive Valium 10 mg Tab RxNorm: 865903 1 Tablet(s) PO QHS 01/05/2011 012 Inactive Diflucan 200 mg Tab RxNorm: 058878 1 Tablet(s) PO QD 01/01/201101/14 Inactive Diflucan 200 mg Tab RxNorm: 875880 1 Tablet(s) PO QD 12/18/201012/31 Inactive Valium 10 mg Tab RxNorm: 540506 1 Tablet(s) PO QHS 12/12/2010 011 Inactive Diflucan 200 mg Tab RxNorm: 295066 1 Tablet(s) PO QD 12/07/201012/18 Inactive Aricept 10 mg Tab RxNorm: 483271 1 Tablet(s) PO QD 11/20/2010 011 Inactive ropinirole 1 mg Tab RxNorm: 187441 1 Tablet(s) PO QHS 11/16/201005/03 Inactive enalapril maleate 5 mg Tab RxNorm: 606919 1 Tablet(s) PO QD 011 05/20/2018 Inactive buspirone 10 mg Tab RxNorm: 381719 1 Tablet(s) PO BID 11/16/201012/02 Inactive Valium 10 mg Tab RxNorm: 154449 1 Tablet(s) PO QHS 11/07/2010 011 Inactive Pyridium 100 mg Tab RxNorm: 7879197 1 Tablet(s) PO TID 11/02/201004/2010 Inactive Macrobid 100 mg Cap RxNorm: 1620495 1 Capsule(s) PO BID 11/02/2010 Inactive buspirone 10 mg Tab RxNorm: 058597 1 Tablet(s) PO QHS 10/18/201005/02 Inactive propranolol 60 mg Tab RxNorm: 597697 1 Tablet(s) PO BID 09/18/2010 Inactive Valium 10 mg Tab RxNorm: 122136 1 Tablet(s) PO QHS 09/05/2010 09/02/2 011 Inactive Aricept 10 mg Tab RxNorm: 799670 1 Tablet(s) PO QD 08/14/2010 011 Inactive Valium 10 mg Tab RxNorm: 801013 1 Tablet(s) PO QHS 06/26/2010 011 Inactive ropinirole 1 mg Tab RxNorm: 004215 1 Tablet(s) PO QHS 06/19/201010/02 Inactive omeprazole 40 mg Cap, delayed release RxNorm: 246015 1 Capsule( s) PO QD 06/07/2010 10/04/2010 Inactive Endocet 10 mg-325 mg Tab RxNorm: 8519507 1 Tablet(s) PO QID as needed for severe pain 06/07/2010 03/07/2011 Inactive Endocet 10 mg-325 mg Tab RxNorm: 2001107 1 Tablet(s) PO QID as needed for severe pain 05/04/2010 06/02/2010 Inactive Valium 10 mg Tab RxNorm: 204465 1 Tablet(s) PO QHS 05/01/2010 011 Inactive propranolol 60 mg Tab RxNorm: 433636 1 Tablet(s) PO BID 04/03/2010 Inactive Valium 10 mg Tab RxNorm: 266596 1 Tablet(s) PO QHS 03/28/2010 011 Inactive omeprazole 40 mg Cap, Delayed Release RxNorm: 674515 1 Capsule( s) PO QD 03/28/2010 06/06/2010 Inactive Endocet 10 mg-325 mg Tab RxNorm: 6444082 1 Tablet(s) PO QID prn ari n 03/27/2010 05/20/2018 Inactive Valium 10 mg Tab RxNorm: 053389 1 Tablet(s) PO QHS 02/20/2010 011 Inactive Diflucan 100 mg Tab RxNorm: 677888 1 Tablet(s) PO BID 01/23/201003/2009 Inactive Diflucan 100 mg Tab RxNorm: 348308 1 Tablet(s) PO BID 01/05/201001/02 Inactive Aricept 10 mg Tab RxNorm: 556928 1 Tablet(s) PO QD 12/01/2009 011 Inactive OxyContin 20 mg 12 hr Tab RxNorm: 1288890 1 Tablet(s) PO BID 200904/05/2010 Inactive oxycodone-acetaminophen 10 mg-325 mg Tab RxNorm: 3826541 1 Table t(s) PO Q4H 11/22/2009 11/26/2009 Inactive Phenergan 25 mg Tab RxNorm: 916928 1 Tablet(s) PO PRN MIGRAINE 11/0303/07/2011 Inactive Demerol 100 mg Tab RxNorm: 278039 1 Tablet(s) PO PRN MIGRAINE 11/2203/07/2011 Inactive Oxycodone-Acetaminophen 10 mg-325 mg Tab RxNorm: 2935979 1 Table t(s) PO Q4H 10/11/2009 10/15/2009 Inactive Percocet 10 mg-325 mg Tab RxNorm: 7150060 1 Tablet(s) PO Q4H 200910/24/2009 Inactive propranolol 60 mg Tab RxNorm: 605864 1 Tablet(s) PO BID 08/29/2009 Inactive Valium 10 mg Tab RxNorm: 048250 1 Tablet(s) PO QHS 08/16/2009 010 Inactive Keflex 500 mg Cap RxNorm: 446119 1 Capsule(s) PO BID 07/25/200907/31 Inactive Hydroxyzine 25 mg Tab RxNorm: 969433 1 Tablet(s) PO TID 07/25/2009 Inactive Prednisone 20 mg Tab RxNorm: 028893 1 Tablet(s) PO BID 07/25/2009 Inactive Demerol 100 mg Tab RxNorm: 337850 1 Tablet(s) PO PRN MIGRAINE 07/25 No Stop Date Active Ropinirole 1 mg Tab RxNorm: 688097 1 Tablet(s) PO HS 07/20/200902/14 Inactive Valium 10 mg Tab RxNorm: 823304 1 Tablet(s) PO QHS 07/18/2009 010 Inactive Endocet 10 mg-325 mg Tab RxNorm: 3766045 1 Tablet(s) PO TID 010 07/07/2009 Inactive Demerol 100 mg Tab RxNorm: 272798 1 Tablet(s) PO PRN MIGRAINE 06/08 No Stop Date Active Ropinirole 1 mg Tab RxNorm: 042215 1 Tablet(s) PO HS 05/16/200907/14 Inactive ipratropium-albuterol 0.5 mg-3 mg(2.5 mg base)/3 mL ne bulization soln RxNorm: 2507420 1 Unit Dose INH Q4H as needed No Start Date Active diltiazem CD 240 mg capsule,extended release 24 hr RxNorm: 8 15059 1 Capsule(s) PO QD No Start Date Active metoprolol tartrate 25 mg tablet RxNorm: 532820 1 Tablet(s) PO BID No Start Date Active MagOx 400 mg (241.3 mg magnesium) tablet RxNorm: 582599 1 Table t(s) PO BID No Start Date Active Vitamin B12 1000mcg Tablet RxNorm: 1 Tablet(s) PO QD No Start Date Active Vitamin D3 5,000 unit tablet RxNorm: 050350 1 Tablet(s) PO QD No Star t Date Active Tylenol Arthritis Pain 650 mg tablet,extended release RxNorm : 1015444 1 Tablet(s) PO Q4H No Start Date Active Lotrimin AF 2 % topical powder RxNorm: 921663 1 Application TOP BID No Start Date Active enalapril maleate 5 mg Tab RxNorm: 934096 1 Tablet(s) PO QD No Star t Date 07/20/2012 Inactive Demerol 100 mg Tab RxNorm: 786882 Tablet(s) PO PRN MIGRAINE No Star t Date 06/02/2009 Inactive metformin 500 mg tablet RxNorm: 831204 1 Tablet(s) PO QD No Start D ate 04/05/2013 Inactive Breo Ellipta 100 mcg-25 mcg/dose powder for inhalation RxNor m: 0509332 1 Puff(s) INH BID No Start Date 01/04/2016 Inactive Mag-Oxide 400 mg Tab RxNorm: 895268 1 Tablet(s) PO QD No Start Date 0 07/21/2012 Inactive Cipro 500 mg Tab RxNorm: 384701 1 Tablet(s) PO QD No Start Date 04/05 Inactive Ativan 0.5 mg tablet RxNorm: 823665 1 Tablet(s) PO TID as needed No Start Date 05/06/2019 Inactive melatonin 3 mg tablet RxNorm: 802188 2 Tablet(s) PO QHS No Start Da te 08/19/2018 Inactive buspirone 10 mg Tab RxNorm: 545195 1 Tablet(s) PO QD No Start Date Inactive sucralfate 100 mg/mL Oral Susp RxNorm: 154291 2 Teaspoon(s) PO QID No Start Date 07/21/2012 Inactive hydrocodone 5 mg-acetaminophen 325 mg tablet RxNorm: 541312 1 Tablet(s) PO Q4H as needed No Start Date 08/19/2018 Inactive Amaryl 2 mg tablet RxNorm: 416420 1 Tablet(s) PO BID No Start Date Inactive OxyContin 20 mg 12 hr Tab RxNorm: 2690029 1 Tablet(s) PO BID No Sta rt Date 11/27/2009 Inactive propranolol 40 mg tablet RxNorm: 485437 1 Tablet(s) PO QID No Start Date 01/19/2018 Inactive Trazadone 150 mg Tablet RxNorm: 1-2 Tablet(s) PO QHS prn sleep No Start Date 08/09/2010 Inactive propranolol 60 mg Tab RxNorm: 388951 1/2 Tablet(s) PO BID No Start Date 01/21/2011 Inactive insulin NPH and regular human subcutaneous RxNorm: 2420271 subcu taneous No Start Date 11/20/2018 Inactive Ativan 0.5 mg tablet RxNorm: 778317 1 Tablet(s) PO QID No Start Date 06/18/2016 Inactive Vasotec 5 mg Tab RxNorm: 799570 1 Tablet(s) PO BID No Start Date 06/2011 Inactive Toprol XL 50 mg tablet,extended release RxNorm: 711649 1 Tablet (s) PO BID No Start Date 04/05/2013 Inactive Ativan 0.5 mg tablet RxNorm: 217180 1 Tablet(s) PO TID No Start Date 05/25/2016 Inactive Klor-Con M20 20 mEq Tab RxNorm: 0406052 1 Tablet(s) PO QD No Start Date 03/19/2011 Inactive sumatriptan 100 mg tablet RxNorm: 869898 1 Tablet(s) PO at headache onset--repeat in 2hrs if remains No Start Date 07/21/2012 Inactive propranolol 60 mg Tab RxNorm: 942657 1 Tablet(s) PO BID No Start Da te 08/28/2009 Inactive Cholestyramine Light 4 gram Oral Powder RxNorm: 0559634 1 Unit Dose PO QD in water No Start Date 07/21/2012 Inactive nystatin 100,000 unit/g Topical Powder RxNorm: 383512 Applicati on TOP BID No Start Date 07/21/2012 Inactive vitamin Z18-czceh acid sublingual RxNorm: sublingual No Start Date 07/05/2013 Inactive cyclobenzaprine 5 mg tablet RxNorm: 096321 1/2-1 Tablet (s) PO TID as needed for muscle spasm No Start Date 07/18/2017 Inactive tramadol 50 mg tablet RxNorm: 544124 2 Tablet(s) PO TID as need ed for pain No Start Date 09/01/2014 Inactive aspirin 81 mg Tab RxNorm: 630849 1 Tablet(s) PO QOD No Start Date 04/2013 Inactive Vitamin B12 1000mcg Tablet RxNorm: 1 Tablet(s) PO QD No Start Date 07/18/2017 Inactive cholestyramine (with sugar) 4 gram oral powder RxNorm: 05952 3 1 Unit(s) PO QD as needed No Start Date 05/20/2018 Inactive ProAir HFA 90 mcg/Actuation Aerosol Inhaler RxNorm: 603893 2 Puff(s) INH Q4H prn shortness of breath No Start Date 07/21/2012 Inactive pravastatin 10 mg Tab RxNorm: 744696 1 Tablet(s) PO QD No Start Date 07/21/2012 Inactive gabapentin 800 mg Tab RxNorm: 119942 1 Tablet(s) PO BID No Start Da te 06/03/2011 Inactive Endocet 10 mg-325 mg Tab RxNorm: 2106034 1 Tablet(s) PO TID No Star t Date 06/02/2009 Inactive Naproxen 500 mg Tab RxNorm: 937314 1 Tablet(s) PO BID No Start Date 0 04/05/2010 Inactive Valium 10 mg Tab RxNorm: 790365 1 Tablet(s) PO BID No Start Date 07/04 Inactive enalapril maleate 5 mg Tab RxNorm: 951194 1 Tablet(s) PO QD No Star t Date 11/15/2010 Inactive doxepin 10 mg capsule RxNorm: 7432088 2 Capsule(s) PO QHS No Start Date 09/17/2018 Inactive MS Contin 15 mg Tab RxNorm: 873138 1 Tablet(s) PO BID No Start Date 0 09/18/2010 Inactive buspirone 5 mg tablet RxNorm: 962784 1 Tablet(s) PO TID No Start Da te 12/01/2013 Inactive [place] 3 Fish Oil Cap RxNorm: 1 Capsule(s) PO QD No Start Date 07/03 Inactive enalapril maleate 5 mg Tab RxNorm: 248824 1/2 Tablet(s) PO QD No St art Date 03/07/2011 Inactive Lyrica 75 mg capsule RxNorm: 223412 1 Capsule(s) PO QHS No Start Da te 02/08/2014 Inactive Lopressor 100 mg tablet RxNorm: 342751 1 Tablet(s) PO BID No Start Date 06/08/2018 Inactive Lantus Solostar U-100 Insulin 100 unit/mL (3 mL) subcu taneous pen RxNorm: 561760 45 Unit(s) SQ QAM No Start Date 05/20/2018 Inactive aspirin 81 mg tablet RxNorm: 343545 1 Tablet(s) PO QD No Start Date 0 09/14/2015 Inactive insulin NPH isophane U-100 human subcutaneous RxNorm: 732975 beckwith bcutaneous No Start Date 04/20/2019 Inactive sumatriptan 100 mg tablet RxNorm: 329741 1 Tablet(s) PO at headache onset. May repeat 1 in two hours if headache remains. Max of 2 per 24 hours No Start Date 04/01/2018 Inactive gabapentin 300 mg capsule RxNorm: 007682 1 Capsule(s) PO QHS No Sta rt Date 02/04/2018 Inactive Topamax 25 mg Tab RxNorm: 005858 Oral No Start Date 03/07/2011 In active Senokot-S 8.6 mg-50 mg Tab RxNorm: 8756314 1 Tablet(s) PO QD No Sta rt Date 03/07/2011 Inactive metformin ER 500 mg 24 hr tablet,extended release RxNorm: 18 72447 1 Tablet(s) PO QD No Start Date 05/20/2018 Inactive Symbicort 80 mcg-4.5 mcg/actuation HFA Aerosol Inhaler RxNor m: 0480673 2 Puff(s) INH BID No Start Date 04/05/2013 Inactive propranolol 60 mg Tab RxNorm: 495283 1/2 Tablet(s) PO BID No Start Date 07/21/2012 Inactive metformin ER 500 mg 24 hr tablet,extended release RxNorm: 18 21240 2 Tablet(s) PO QD No Start Date 12/16/2017 Inactive Insulin Syringe 1 mL 29 gauge x 1/2" RxNorm: 2 s yringes daily with insulin Dx: E11.65 No Start Date 10/07/2018 Inactive Amitriptyline 75 mg Tab RxNorm: 434128 1 Tablet(s) PO QHS No Start Date 10/23/2009 Inactive donepezil 10 mg Tab RxNorm: 609313 1 Tablet(s) PO QD No Start Date Inactive Lantus Solostar U-100 Insulin 100 unit/mL (3 mL) subcu taneous pen RxNorm: 195570 36 Unit(s) SQ QAM No Start Date 12/24/2017 Inactive Miacalcin 200 unit/Actuation Nasal [place] Aerosol RxNorm: 261 204 1 [place] NASAL QD Alternate nostrils each day No Start Date 04/05/2010 Inactive Amitriptyline 150 mg Tab RxNorm: 535466 1 Tablet(s) PO QHS No Start Date 01/04/2010 Inactive Bystolic 5 mg tablet RxNorm: 680254 1 Tablet(s) PO QD No Start Date 0 08/13/2012 Inactive Aricept 10 mg Tab RxNorm: 108315 1 Tablet(s) PO QD No Start Date 11/03 Inactive Lantus Solostar U-100 Insulin 100 unit/mL (3 mL) subcu taneous pen RxNorm: 651537 50 Unit(s) SQ QAM No Start Date 08/27/2018 Inactive albuterol sulfate 2.5 mg/3 mL (0.083 %) Neb Solution RxNorm: 942390 1 Unit Dose INH QID as needed No Start Date 08/23/2015 Inactive Symbicort 160 mcg-4.5 mcg/actuation HFA Aerosol Inhaler RxNo rm: 1423757 2 Puff(s) INH BID No Start Date 12/03/2011 Inactive Savella 50 mg Tab RxNorm: 665674 1 Tablet(s) PO BID No Start Date 04/2010 Inactive amitriptyline 100 mg Tab RxNorm: 248020 1 1/2 Tablet(s) PO QHS No S tart Date 06/19/2011 Inactive nystatin 100,000 unit/g Topical Cream RxNorm: 677193 Ap plication TOP BID to rash for 2-4 weeks No Start Date 01/14/2011 Inactive Trelegy Ellipta 100 mcg-62.5 mcg-25 mcg powder for inhalatio n RxNorm: 3655571 1 Puff(s) INH QD No Start Date 12/16/2017 Inactive Lyrica 150 mg capsule RxNorm: 122752 1 Capsule(s) PO QHS No Start D ate 12/04/2015 Inactive sennosides 8.6 mg tablet RxNorm: 495615 1 Tablet(s) PO BID No Start Date 09/07/2018 Inactive metformin ER 500 mg tablet,extended release 24 hr RxNorm: 86 0975 1 Tablet(s) PO QD No Start Date 10/22/2017 Inactive Fish Oil 1,000 mg Cap RxNorm: 1 Capsule(s) PO QD No Start Date 06/2011 Inactive Zyrtec 10 mg Tab RxNorm: 3866564 1 Tablet(s) PO QD No Start Date 07/03 Inactive albuterol sulfate HFA 90 mcg/actuation aerosol inhaler RxNor m: 8962360 2 Puff(s) INH Q4H as needed for cough No Start Date 09/30/2013 Inactive trazodone 150 mg tablet RxNorm: 896616 1 Tablet(s) PO QHS No Start Date 07/21/2012 Inactive Spiriva with HandiHaler 18 mcg & inhalation capsules RxNorm: 917045 1 Capsule(s) INH QD No Start Date 04/05/2013 Inactive Coreg 3.125 mg Tab RxNorm: 794099 1 Tablet(s) PO BID No Start Date Inactive Phenergan 25 mg Tab RxNorm: 209240 Tablet(s) PO PRN MIGRAINE No Sta rt Date 11/21/2009 Inactive Vitamin D 50,000 unit Cap RxNorm: 6369849 1 Capsule(s) PO QW No Sta rt Date 03/07/2011 Inactive Januvia 100 mg tablet RxNorm: 439821 1 Tablet(s) PO QD No Start Date 10/25/2015 Inactive Eliquis 5 mg tablet RxNorm: 0556407 1 Tablet(s) PO BID No Start Date 08/19/2018 Inactive Advair Diskus 500 mcg-50 mcg/Dose for Inhalation RxNorm: 285976 1 INH BID No Start Date 07/21/2012 Inactive Vitamin D3 5,000 unit tablet RxNorm: 298156 1 Tablet(s) PO QD No St art Date 07/18/2017 Inactive Amaryl 2 mg tablet RxNorm: 115863 1 Tablet(s) PO QD No Start Date 06/2015 Inactive Actos 30 mg tablet RxNorm: 770917 1 Tablet(s) PO QD No Start Date Inactive promethazine 25 mg tablet RxNorm: 697834 1 Tablet(s) PO Q4H prn N/V No Start Date 07/21/2012 Inactive ProAir HFA 90 mcg/actuation Aerosol Inhaler RxNorm: 858313 2 Puff(s) INH Q4H prn dyspnea No Start Date 07/21/2012 Inactive Dexilant 60 mg Capsule RxNorm: 757271 1 Capsule(s) PO QD No Start D ate 01/27/2012 Inactive Lantus Solostar U-100 Insulin 100 unit/mL (3 mL) subcu taneous pen RxNorm: 342975 38 Unit(s) SQ QAM No Start Date 05/20/2018 Inactive Valium 10 mg Tab RxNorm: 946132 1 Tablet(s) PO QHS AND PRN No Start Date 10/24/2009 Inactive ZOFRAN ODT 8 mg disintegrating tablet RxNorm: 469852 1 Tablet(s ) PO Q6H No Start [...] Date S ervice Location MICROALBUMIN URINE RANDOM 31054 MICRL MG/L 14.9 MG/L Unknown MICROALBUMIN URINE RANDOM 63201 XM.ALB/CRE 6.1 MG/GCR Unknown MICROALBUMIN URINE RANDOM 88623 CREAT MG/D 243 MG/DL Unknown MICROALBUMIN URINE RANDOM 97633 CRE/100 2.43 G/L 03/05 Unknown PROTEIN/CREAT URINE WITH RATIO 00078|62581 PROT R U 14 MG/D L 04/01/2014 Unknown PROTEIN/CREAT URINE WITH RATIO 03040|88113 CREAT R U 254 MG/ DL 04/01/2014 Unknown PROTEIN/CREAT URINE WITH RATIO 46236|75847 XRATIO P/C 55 MG/ G 04/01/2014 Unknown URINALYSIS 87253 PROTEIN UR NEG 04/28/2010 Unknown URINALYSIS 91904 HEMGLBN UR NEG 04/28/2010 Unknown URINALYSIS 16568 GLUCOSE UR NEG 04/28/2010 Unknown URINALYSIS 28034 KETONES UR NEG 04/28/2010 Unknown URINALYSIS 74190 PH U 5.5 04/28/2010 Unknown URINALYSIS 22830 SP GR U 1.025 04/28/2010 Unknown URINALYSIS 94794 BILRUBN UR NEG 04/28/2010 Unknown URINALYSIS 44504 LEUKO UR 2+ 04/28/2010 Unknown URINALYSIS 49899 NITRITE UR NEG 04/28/2010 Unknown MICR CUL? [id number] WBC/HPF 6-10 04/28/2010 Unknown MICR CUL? [id number] RBC/HPF 0-5 04/28/2010 Unknown MICR CUL? [id number] HYAL CAST 16-25 04/28/2010 Unknown MICR CUL? [id number] SP TO YOLIE? NO 04/28/2010 Unknown MICR CUL? [id number] APPEAR UR NORMAL 04/28/2010 Unknown MICR CUL? [id number] SQ EPI/LPF FEW 04/28/2010 Unknown Procedures Procedure Codes Date URINALYSIS NONAUTO W/O SCOPE CPT-4: 70051 04/16/2019 URINE CULTURE/ COLONY COUNT CPT-4: 21630 04/16/2019 CEFTRIAXONE SODIUM INJECTION CPT-4: J0696 04/16/2019 THER/PROPH/DIAG INJ SC/IM CPT-4: 26854 04/16/2019 DRAIN/INJECT JOINT/BURSA CPT-4: 56038 01/22/2019 TRIAMCINOLONE ACET INJ NOS CPT-4: J3301 01/22/2019 DEXAMETHASONE SODIUM PHOS CPT-4: J1100 01/22/2019 URINE CULTURE/ COLONY COUNT CPT-4: 94291 01/07/2019 URINALYSIS NONAUTO W/O SCOPE CPT-4: 74812 01/07/2019 CEFTRIAXONE SODIUM INJECTION CPT-4: J0696 01/07/2019 THER/PROPH/DIAG INJ SC/IM CPT-4: 14514 01/07/2019 FLU VACC PRSV FREE INC ANTIG 65 AND OLDER CPT-4: 28834 12/24/2018 FLU VACC PRSV FREE INC ANTIG 65 AND OLDER CPT-4: 09071 12/24/2018 ADMIN INFLUENZA VIRUS VAC CPT-4: G0008 12/24/2018 THER/PROPH/DIAG INJ SC/IM CPT-4: 55949 11/04/2018 KETOROLAC TROMETHAMINE INJ CPT-4: J1885 11/04/2018 PROMETHAZINE HCL INJECTION CPT-4: J2550 11/04/2018 PPPS, subseq visit CPT-4: G0439 09/18/2018 THER/PROPH/DIAG INJ SC/IM CPT-4: 65223 04/01/2018 KETOROLAC TROMETHAMINE INJ CPT-4: J1885 04/01/2018 PROMETHAZINE HCL INJECTION CPT-4: J2550 04/01/2018 URINE CULTURE/ COLONY COUNT CPT-4: 34082 03/17/2018 URINALYSIS NONAUTO W/O SCOPE CPT-4: 23022 03/17/2018 FLU VACC PRSV FREE INC ANTIG 65 AND OLDER CPT-4: 44882 12/17/2017 PNEUMOCOCCAL VACC 23 RANDALL IM CPT-4: 90945 12/17/2017 ADMIN INFLUENZA VIRUS VAC CPT-4: G0008 12/17/2017 ADMIN PNEUMOCOCCAL VACCINE CPT-4: G0009 12/17/2017 PPPS, subseq visit CPT-4: G0439 09/17/2017 THER/PROPH/DIAG INJ SC/IM CPT-4: 46414 08/26/2017 KETOROLAC TROMETHAMINE INJ CPT-4: J1885 08/26/2017 PROMETHAZINE HCL INJECTION CPT-4: J2550 08/26/2017 URINALYSIS NONAUTO W/O SCOPE CPT-4: 50643 07/19/2017 URINE CULTURE/ COLONY COUNT CPT-4: 01024 07/19/2017 CEFTRIAXONE SODIUM INJECTION CPT-4: J0696 07/19/2017 THER/PROPH/DIAG INJ SC/IM CPT-4: 93556 07/19/2017 THER/PROPH/DIAG INJ SC/IM CPT-4: 74380 07/19/2017 TRIAMCINOLONE ACET INJ NOS CPT-4: J3301 07/19/2017 PRESCRIP TRANSMIT VIA ERX SY CPT-4: G8553 05/07/2017 PRESCRIP TRANSMIT VIA ERX SY CPT-4: G8553 02/22/2017 PRESCRIP TRANSMIT VIA ERX SY CPT-4: G8553 01/23/2017 FLU VACC PRSV FREE INC ANTIG 65 AND OLDER CPT-4: 33871 12/20/2016 PNEUMOCOCCAL VACC 13 RANDALL IM CPT-4: 06472 12/20/2016 ADMIN INFLUENZA VIRUS VAC CPT-4: G0008 12/20/2016 ADMIN PNEUMOCOCCAL VACCINE CPT-4: G0009 12/20/2016 URINALYSIS NONAUTO W/O SCOPE CPT-4: 52492 10/08/2016 URINE CULTURE/ COLONY COUNT CPT-4: 31245 10/08/2016 PRESCRIP TRANSMIT VIA ERX SY CPT-4: G8553 10/08/2016 PRESCRIP TRANSMIT VIA ERX SY CPT-4: G8553 09/19/2016 PRESCRIP TRANSMIT VIA ERX SY CPT-4: G8553 08/20/2016 PRESCRIP TRANSMIT VIA ERX SY CPT-4: G8553 02/29/2016 KETOROLAC TROMETHAMINE INJ CPT-4: J1885 02/02/2016 THER/PROPH/DIAG INJ SC/IM CPT-4: 14143 02/02/2016 PROMETHAZINE HCL INJECTION CPT-4: J2550 02/02/2016 PRESCRIP TRANSMIT VIA ERX SY CPT-4: G8553 02/02/2016 FLU VACC PRSV FREE INC ANTIG 65 AND OLDER CPT-4: 71791 01/05/2016 PPPS, subseq visit CPT-4: G0439 01/05/2016 ADMIN INFLUENZA VIRUS VAC CPT-4: G0008 01/05/2016 URINE CULTURE/ COLONY COUNT CPT-4: 32185 12/05/2015 URINALYSIS NONAUTO W/O SCOPE CPT-4: 82001 12/05/2015 PRESCRIP TRANSMIT VIA ERX SY CPT-4: G8553 12/05/2015 PRESCRIP TRANSMIT VIA ERX SY CPT-4: G8553 10/26/2015 URINALYSIS NONAUTO W/O SCOPE CPT-4: 92576 10/05/2015 URINE CULTURE/ COLONY COUNT CPT-4: 91239 10/05/2015 PRESCRIP TRANSMIT VIA ERX SY CPT-4: G8553 10/05/2015 SERVICE REQUIRED FOR PMD CPT-4: G0372 09/15/2015 PRESCRIP TRANSMIT VIA ERX SY CPT-4: G8553 09/15/2015 SPECIAL REPORTS OR FORMS CPT-4: 21368 08/25/2015 PRESCRIP TRANSMIT VIA ERX SY CPT-4: G8553 07/05/2015 URINALYSIS NONAUTO W/O SCOPE CPT-4: 25549 03/30/2015 ASSAY, GLUCOSE, BLOOD QUANT CPT-4: 76967 03/30/2015 URINE CULTURE/ COLONY COUNT CPT-4: 59962 03/30/2015 PRESCRIP TRANSMIT VIA ERX SY CPT-4: G8553 03/30/2015 PRESCRIP TRANSMIT VIA ERX SY CPT-4: G8553 02/03/2015 FLU VACC PRSV FREE INC ANTIG 65 AND OLDER CPT-4: 56341 12/29/2014 ADMIN INFLUENZA VIRUS VAC CPT-4: G0008 12/29/2014 PRESCRIP TRANSMIT VIA ERX SY CPT-4: G8553 12/29/2014 PRESCRIP TRANSMIT VIA ERX SY CPT-4: G8553 09/02/2014 PROTEIN/CREAT URINE WITH RATIO CPT-4: 35615|[id number] 5 MICROALBUMIN QUANTITATIVE CPT-4: 73758 04/01/2014 PRESCRIP TRANSMIT VIA ERX SY CPT-4: G8553 03/16/2014 PRESCRIP TRANSMIT VIA ERX SY CPT-4: G8553 03/09/2014 THER/PROPH/DIAG INJ SC/IM CPT-4: 48348 03/01/2014 TRIAMCINOLONE ACET INJ NOS CPT-4: J3301 03/01/2014 PRESCRIP TRANSMIT VIA ERX SY CPT-4: G8553 02/09/2014 URINE CULTURE/ COLONY COUNT CPT-4: 72206 10/30/2013 URINALYSIS NONAUTO W/O SCOPE CPT-4: 92988 10/21/2013 URINE CULTURE/ COLONY COUNT CPT-4: 92509 10/21/2013 DESTRUCT PREMALG LESION (Cryosurgery) CPT-4: 57413 PRESCRIP TRANSMIT VIA ERX SY CPT-4: G8553 10/05/2013 URINALYSIS NONAUTO W/O SCOPE CPT-4: 16811 08/04/2013 URINE CULTURE/ COLONY COUNT CPT-4: 12733 08/04/2013 PRESCRIP TRANSMIT VIA ERX SY CPT-4: G8553 08/04/2013 THER/PROPH/DIAG INJ SC/IM CPT-4: 74999 07/13/2013 TRIAMCINOLONE ACET INJ NOS CPT-4: J3301 07/13/2013 PRESCRIP TRANSMIT VIA ERX SY CPT-4: G8553 05/27/2013 URINALYSIS NONAUTO W/O SCOPE CPT-4: 44525 05/25/2013 URINE CULTURE/ COLONY COUNT CPT-4: 46171 05/25/2013 THER/PROPH/DIAG INJ SC/IM CPT-4: 21638 05/04/2013 VITAMIN B12 INJECTION CPT-4: J3420 05/04/2013 THER/PROPH/DIAG INJ SC/IM CPT-4: 32664 04/17/2013 VITAMIN B12 INJECTION CPT-4: J3420 04/17/2013 THER/PROPH/DIAG INJ SC/IM CPT-4: 18735 04/17/2013 METHYLPREDNISOLONE 40 MG INJ CPT-4: J1030 04/17/2013 TRIAMCINOLONE ACET INJ NOS CPT-4: J3301 04/17/2013 URINALYSIS NONAUTO W/O SCOPE CPT-4: 06799 04/06/2013 URINE CULTURE/ COLONY COUNT CPT-4: 88538 04/06/2013 PRESCRIP TRANSMIT VIA ERX SY CPT-4: G8553 04/06/2013 KETOROLAC TROMETHAMINE INJ CPT-4: J1885 06/25/2012 PROMETHAZINE HCL INJECTION CPT-4: J2550 06/25/2012 THER/PROPH/DIAG INJ SC/IM CPT-4: 11642 06/25/2012 THER/PROPH/DIAG INJ SC/IM CPT-4: 11832 06/24/2012 METHYLPREDNISOLONE 40 MG INJ CPT-4: J1030 06/24/2012 TRIAMCINOLONE ACET INJ NOS CPT-4: J3301 06/24/2012 URINE CULTURE/ COLONY COUNT CPT-4: 62704 06/24/2012 THER/PROPH/DIAG INJ SC/IM CPT-4: 96501 05/20/2012 KETOROLAC TROMETHAMINE INJ CPT-4: J1885 05/20/2012 THER/PROPH/DIAG INJ SC/IM CPT-4: 84177 05/20/2012 PROMETHAZINE HCL INJECTION CPT-4: J2550 05/20/2012 DRAIN/INJECT JOINT/BURSA CPT-4: 61384 02/13/2012 METHYLPREDNISOLONE 40 MG INJ CPT-4: J1030 02/13/2012 TRIAMCINOLONE ACET INJ NOS CPT-4: J3301 02/13/2012 THER/PROPH/DIAG INJ SC/IM CPT-4: 82704 11/14/2011 METHYLPREDNISOLONE 40 MG INJ CPT-4: J1030 11/14/2011 TRIAMCINOLONE ACET INJ NOS CPT-4: J3301 11/14/2011 THER/PROPH/DIAG INJ SC/IM CPT-4: 72053 09/12/2011 KETOROLAC TROMETHAMINE INJ CPT-4: J1885 09/12/2011 THER/PROPH/DIAG INJ SC/IM CPT-4: 87922 08/09/2011 METHYLPREDNISOLONE 40 MG INJ CPT-4: J1030 08/09/2011 TRIAMCINOLONE ACET INJ NOS CPT-4: J3301 08/09/2011 URINE CULTURE/ COLONY COUNT CPT-4: 89651 07/03/2011 URINE CULTURE/ COLONY COUNT CPT-4: 24336 06/04/2011 THER/PROPH/DIAG INJ SC/IM CPT-4: 82458 05/03/2011 METHYLPREDNISOLONE 40 MG INJ CPT-4: J1030 05/03/2011 TRIAMCINOLONE ACET INJ NOS CPT-4: J3301 05/03/2011 URINALYSIS NONAUTO W/O SCOPE CPT-4: 48146 01/24/2011 URINE CULTURE/ COLONY COUNT CPT-4: 37236 01/24/2011 FLUZONE, 5ML (Medicare) CPT-4: Q2038 01/02/2011 ADMIN INFLUENZA VIRUS VAC CPT-4: G0008 01/02/2011 ASSAY, GLUCOSE, BLOOD QUANT CPT-4: 64465 12/07/2010 URINE CULTURE/ COLONY COUNT CPT-4: 04928 11/02/2010 THER/PROPH/DIAG INJ SC/IM CPT-4: 97546 10/18/2010 METHYLPREDNISOLONE 40 MG INJ CPT-4: J1030 10/18/2010 TRIAMCINOLONE ACET INJ NOS CPT-4: J3301 10/18/2010 TRIAMCINOLONE ACET INJ NOS CPT-4: J3301 05/11/2010 METHYLPREDNISOLONE 40 MG INJ CPT-4: J1030 05/11/2010 THER/PROPH/DIAG INJ SC/IM CPT-4: 15120 05/11/2010 TRIAMCINOLONE ACET INJ NOS CPT-4: J3301 02/09/2010 METHYLPREDNISOLONE 40 MG INJ CPT-4: J1030 02/09/2010 THER/PROPH/DIAG INJ SC/IM CPT-4: 15591 02/09/2010 MD SERVICE REQUIRED FOR PMD CPT-4: G0372 02/09/2010 FLU VACCINE 3 YRS & > IM UP 64 CPT-4: 31018 0 PNEUMOCOCCAL VACC 23 RANDALL IM CPT-4: 42612 12/07/2009 ADMIN INFLUENZA VIRUS VAC CPT-4: G0008 12/07/2009 ADMIN PNEUMOCOCCAL VACCINE CPT-4: G0009 12/07/2009 TRIAMCINOLONE ACET INJ NOS CPT-4: J3301 05/26/2009 THER/PROPH/DIAG INJ SC/IM CPT-4: 78143 05/26/2009 METHYLPREDNISOLONE 80 MG INJ CPT-4: J1040 [...] 1: 114/72 Code: 8480-6 BMI: 37.8 Code: 99139-4 Heart Rate 1: 72 bpm Height: 5'3" [...] 1: 106/68 Code: 8480-6 BMI: 35.7 Code: 62037-0 Heart Rate 1: 72 bpm Height: 5'4" Respiratory Rate: 20 bpm SpO2: 98% Tempera ture: 36.7 (C) / 98.0 (F) Weight: 208 lbs 04/16/2018 Blood Pressure 1: 132/82 Code: 8480-6 BMI: 37.9 Code: 49315-9 Heart Rate 1: 72 bpm Height: 5'4" Respiratory Rate: 20 bpm SpO2: 96% Tempera ture: 37.1 (C) / 98.8 (F) Weight: 221 lbs 04/01/2018 Blood Pressure 1: 150/90 Code: 8480-6 Heart Rate 1: 72 bpm Respiratory Rate: 22 bpm SpO2: 95% Temperature: 36.4 (C) / 97.6 (F) We ight: 216 lbs 03/06/2018 Blood Pressure 1: 126/78 Code: 8480-6 BMI: 37.4 Code: 88863-5 Heart Rate 1: 68 bpm Height: 5'4" [...] ight: 222 lbs 12/25/2017 BMI: 37.8 Code: 21447-6 Heart Rate 1: 76 bpm Height: 5 '4" Respiratory Rate: 20 bpm SpO2: 96% Temperature: 37.3 (C) / 99.2 (F) Weight: 220 lbs 12/17/2017 Blood Pressure 1: 132/78 Code: 8480-6 BMI: 37.2 Code: 76278-7 Heart Rate 1: 88 bpm Height: 5'4" Respiratory Rate: 20 bpm SpO2: 96% Tempera ture: 37.3 (C) / 99.2 (F) Weight: 217 lbs 10/30/2017 Blood Pressure 1: 114/68 Code: 8480-6 BMI: 36.4 Code: 32333-0 Heart Rate 1: 72 bpm Height: 5'4" Respiratory Rate: 22 bpm SpO2: 96% Tempera ture: 36.8 (C) / 98.2 (F) Weight: 212 lbs 10/23/2017 Blood Pressure 1: 124/78 Code: 8480-6 Heart Rate 1: 72 bpm Respiratory Rate: 24 bpm SpO2: 94% Temperature: 36.6 (C) / 97.9 (F) We ight: 212 lbs 09/17/2017 Blood Pressure 1: 128/82 Code: 8480-6 BMI: 37.4 Code: 75381-7 Heart Rate 1: 72 bpm Height: 5'4" Respiratory Rate: 20 bpm SpO2: 96% Tempera ture: 37.0 (C) / 98.6 (F) Weight: 218 lbs 07/19/2017 Blood Pressure 1: 136/84 Code: 8480-6 BMI: 36.6 Code: 31147-9 Heart Rate 1: 88 bpm Height: 5'4" Respiratory Rate: 20 bpm SpO2: 97% Tempera ture: 36.7 (C) / 98.0 (F) Weight: 213 lbs 05/29/2017 Blood Pressure 1: 136/82 Code: 8480-6 BMI: 36.7 Code: 96951-3 Heart Rate 1: 72 bpm Height: 5'4" Respiratory Rate: 20 bpm SpO2: 97% Tempera ture: 36.9 (C) / 98.4 (F) Weight: 214 lbs 05/07/2017 Blood Pressure 1: 122/80 Code: 8480-6 BMI: 37.1 Code: 13710-9 Heart Rate 1: 80 bpm Height: 5'4" Respiratory Rate: 24 bpm SpO2: 96% Tempera ture: 36.1 (C) / 97.0 (F) Weight: 216 lbs 03/18/2017 BMI: 36.7 Code: 60276-3 Heart Rate 1: 80 bpm Height: 5 '4" Respiratory Rate: 22 bpm SpO2: 95% Temperature: 36.9 (C) / 98.4 (F) Weight: 214 lbs 02/27/2017 Blood Pressure 1: 146/94 Code: 8480-6 BMI: 36.6 Code: 02353-5 Heart Rate 1: 76 bpm Height: 5'4" Respiratory Rate: 22 bpm SpO2: 97% Tempera ture: 36.6 (C) / 97.9 (F) Weight: 213 lbs 02/22/2017 Blood Pressure 1: 126/90 Code: 8480-6 BMI: 36.4 Code: 37784-3 Heart Rate 1: 84 bpm Height: 5'4" Respiratory Rate: 22 bpm SpO2: 95% Tempera ture: 36.9 (C) / 98.4 (F) Weight: 212 lbs 01/23/2017 Blood Pressure 1: 146/82 Code: 8480-6 BMI: 37.6 Code: 59531-1 Heart Rate 1: 96 bpm Height: 5'4" Respiratory Rate: 20 bpm SpO2: 96% Tempera ture: 36.9 (C) / 98.4 (F) Weight: 219 lbs 12/20/2016 Blood Pressure 1: 126/70 Code: 8480-6 BMI: 37.2 Code: 13691-7 Heart Rate 1: 76 bpm Height: 5'4" Respiratory Rate: 22 bpm SpO2: 95% Tempera ture: 36.6 (C) / 97.8 (F) Weight: 217 lbs 10/08/2016 Blood Pressure 1: 128/82 Code: 8480-6 BMI: 36.9 Code: 67284-4 Heart Rate 1: 76 bpm Height: 5'4" Respiratory Rate: 20 bpm SpO2: 95% Tempera ture: 37.0 (C) / 98.6 (F) Weight: 215 lbs 09/19/2016 Blood Pressure 1: 144/78 Code: 8480-6 BMI: 37.8 Code: 35522-4 Heart Rate 1: 76 bpm Height: 5'4" Respiratory Rate: 22 bpm SpO2: 95% Tempera ture: 37.0 (C) / 98.6 (F) Weight: 220 lbs 08/20/2016 Blood Pressure 1: 140/86 Code: 8480-6 BMI: 37.4 Code: 89321-1 Heart Rate 1: 80 bpm Height: 5'4" Respiratory Rate: 20 bpm SpO2: 95% Tempera ture: 36.9 (C) / 98.4 (F) Weight: 218 lbs 06/19/2016 Blood Pressure 1: 124 Code: 8480-6 BMI: 37.8 Code: 90652-6 Heart Rate 1: 74 bpm Height: 5'4" Respiratory Rate: 24 bpm SpO2: 96% Tempera ture: 36.9 (C) / 98.4 (F) Weight: 220 lbs 06/04/2016 Blood Pressure 1: 124/78 Code: 8480-6 BMI: 38.8 Code: 49291-1 Heart Rate 1: 72 bpm Height: 5'4" Respiratory Rate: 24 bpm SpO2: 95% Tempera ture: 36.8 (C) / 98.2 (F) Weight: 226 lbs 05/02/2016 Blood Pressure 1: 136/90 Code: 8480-6 BMI: 37.6 Code: 73972-2 Heart Rate 1: 72 bpm Height: 5'4" Respiratory Rate: 24 bpm SpO2: 96% Tempera ture: 36.9 (C) / 98.4 (F) Weight: 219 lbs 04/03/2016 Blood Pressure 1: 126/78 Code: 8480-6 BMI: 38.1 Code: 35669-1 Heart Rate 1: 72 bpm Height: 5'4" Respiratory Rate: 22 bpm SpO2: 94% Tempera ture: 36.9 (C) / 98.4 (F) Weight: 222 lbs 02/29/2016 Blood Pressure 1: 132/78 Code: 8480-6 Heart Rate 1: 78 bpm Height: Respiratory Rate: 24 bpm SpO2: 95% Temperature: 36.4 (C) / 97.6 (F) We ight: 02/02/2016 Blood Pressure 1: 124/78 Code: 8480-6 BMI: 37.6 Code: 76541-4 Heart Rate 1: 76 bpm Height: 5'4" Respiratory Rate: 20 bpm SpO2: 95% Tempera ture: 36.8 (C) / 98.2 (F) Weight: 219 lbs 01/05/2016 Blood Pressure 1: 126/70 Code: 8480-6 BMI: 37.1 Code: 16043-9 Heart Rate 1: 76 bpm Height: 5'4" Respiratory Rate: 20 bpm Temperature: 36 .6 (C) / 97.8 (F) Weight: 216 lbs 12/05/2015 Blood Pressure 1: 126/72 Code: 8480-6 BMI: 36.9 Code: 34867-0 Heart Rate 1: 92 bpm Height: 5'4" Respiratory Rate: 20 bpm Temperature: 36 .7 (C) / 98.1 (F) Weight: 215 lbs 10/26/2015 Blood Pressure 1: 142/80 Code: 8480-6 BMI: 36.4 Code: 45004-1 Heart Rate 1: 82 bpm Height: 5'4" Respiratory Rate: 24 bpm SpO2: 92% Tempera ture: 35.9 (C) / 96.7 (F) Weight: 212 lbs 10/05/2015 Blood Pressure 1: 136/82 Code: 8480-6 Heart Rate 1: 80 bpm Respiratory Rate: 18 bpm SpO2: 98% Temperature: 35.7 (C) / 96.3 (F) We ight: 214 lbs 09/15/2015 Blood Pressure 1: 116/80 Code: 8480-6 BMI: 34.6 Code: 92547-1 Heart Rate 1: 76 bpm Height: 5'6" Respiratory Rate: 20 bpm Temperature: 36 .6 (C) / 97.9 (F) Weight: 211 lbs 08/24/2015 Blood Pressure 1: 124/80 Code: 8480-6 BMI: 34.1 Code: 45886-2 Heart Rate 1: 68 bpm Height: 5'6" Respiratory Rate: 20 bpm Temperature: 36 .8 (C) / 98.3 (F) Weight: 208 lbs 07/05/2015 Blood Pressure 1: 114/78 Code: 8480-6 BMI: 33.9 Code: 65511-9 Heart Rate 1: 80 bpm Height: 5'6" Respiratory Rate: 20 bpm Temperature: 36 .6 (C) / 97.9 (F) Weight: 207 lbs 06/06/2015 Blood Pressure 1: 122/78 Code: 8480-6 BMI: 34.1 Code: 25000-7 Heart Rate 1: 76 bpm Height: 5'6" Respiratory Rate: 24 bpm SpO2: 96% Tempera ture: 36.4 (C) / 97.6 (F) Weight: 208 lbs 05/23/2015 Blood Pressure 1: 124/78 Code: 8480-6 Heart Rate 1: 76 bpm Respiratory Rate: 24 bpm SpO2: 93% Temperature: 36.8 (C) / 98.2 (F) We ight: 212 lbs 05/05/2015 Blood Pressure 1: 136/80 Code: 8480-6 BMI: 35.4 Code: 75181-3 Heart Rate 1: 76 bpm Height: 5'6" Respiratory Rate: 28 bpm Temperature: 37 .0 (C) / 98.6 (F) Weight: 216 lbs 03/30/2015 Blood Pressure 1: 132/86 Code: 8480-6 BMI: 35.2 Code: 73439-6 Heart Rate 1: 84 bpm Height: 5'6" Respiratory Rate: 24 bpm Temperature: 36 .7 (C) / 98.0 (F) Weight: 215 lbs 02/03/2015 Blood Pressure 1: 122/74 Code: 8480-6 BMI: 35.7 Code: 81697-5 Heart Rate 1: 84 bpm Height: 5'6" Respiratory Rate: 20 bpm Temperature: 36 .9 (C) / 98.5 (F) Weight: 218 lbs 12/29/2014 Blood Pressure 1: 132/80 Code: 8480-6 BMI: 35.1 Code: 62115-7 Heart Rate 1: 80 bpm Height: 5'6" Respiratory Rate: 20 bpm Temperature: 36 .6 (C) / 97.8 (F) Weight: 214 lbs 09/02/2014 Blood Pressure 1: 128/92 Code: 8480-6 BMI: 34.7 Code: 22523-0 Heart Rate 1: 84 bpm Height: 5'6" Respiratory Rate: 26 bpm Temperature: 36 .8 (C) / 98.2 (F) Weight: 212 lbs 08/25/2014 Blood Pressure 1: 124/80 Code: 8480-6 BMI: 34.7 Code: 94713-6 Heart Rate 1: 78 bpm Height: 5'6" Respiratory Rate: 22 bpm SpO2: 97% Tempera ture: 36.6 (C) / 97.8 (F) Weight: 212 lbs 04/01/2014 Blood Pressure 1: 142/84 Code: 8480-6 BMI: 34.4 Code: 96594-1 Heart Rate 1: 74 bpm Height: 5'5" Respiratory Rate: 20 bpm Temperature: 36 .4 (C) / 97.6 (F) Weight: 207 lbs 03/16/2014 Blood Pressure 1: 142/90 Code: 8480-6 BMI: 34.6 Code: 41631-8 Heart Rate 1: 76 bpm Height: 5'5" Respiratory Rate: 24 bpm Temperature: 36 .5 (C) / 97.7 (F) Weight: 208 lbs 03/09/2014 Blood Pressure 1: 116/70 Code: 8480-6 BMI: 35.3 Code: 59237-8 Heart Rate 1: 72 bpm Height: 5'5" [...] 1: 128/86 Code: 8480-6 BMI: 34.3 Code: 94895-9 Heart Rate 1: 84 bpm Height: 5'5" Respiratory Rate: 20 bpm Temperature: 36 .7 (C) / 98.0 (F) Weight: 206 lbs 12/23/2013 Blood Pressure 1: 122/70 Code: 8480-6 BMI: 34.3 Code: 19975-2 Heart Rate 1: 68 bpm Height: 5'5" Respiratory Rate: 20 bpm Temperature: 36 .8 (C) / 98.2 (F) Weight: 206 lbs 10/05/2013 Blood Pressure 1: 118/76 Code: 8480-6 BMI: 34.1 Code: 82322-5 Heart Rate 1: 68 bpm Height: 5'5" Respiratory Rate: 20 bpm SpO2: 98% Tempera ture: 36.6 (C) / 97.9 (F) Weight: 205 lbs 08/04/2013 Blood Pressure 1: 126/82 Code: 8480-6 BMI: 33.3 Code: 25031-7 Heart Rate 1: 76 bpm Height: 5'5" Respiratory Rate: 20 bpm Temperature: 36 .8 (C) / 98.2 (F) Weight: 200 lbs 07/03/2013 Blood Pressure 1: 124/82 Code: 8480-6 BMI: 33.3 Code: 43075-6 Heart Rate 1: 72 bpm Height: 5'5" Respiratory Rate: 22 bpm Temperature: 36 .1 (C) / 97.0 (F) Weight: 200 lbs 05/27/2013 Blood Pressure 1: 126/82 Code: 8480-6 Heart Rate 1: 74 bpm Respiratory Rate: 20 bpm Temperature: 36.0 (C) / 96.8 (F) Weight: 199 lbs 04/06/2013 Blood Pressure 1: 118/80 Code: 8480-6 BMI: 35.2 Code: 98910-9 Heart Rate 1: 80 bpm Height: 5'4" Respiratory Rate: 20 bpm Temperature: 37 .4 (C) / 99.3 (F) Weight: 205 lbs 11/10/2012 Blood Pressure 1: 128/82 Code: 8480-6 Heart Rate 1: 84 bpm Respiratory Rate: 20 bpm Temperature: 36.7 (C) / 98.0 (F) Weight: 199 lbs 09/02/2012 Blood Pressure 1: 116/82 Code: 8480-6 BMI: 34.2 Code: 69413-7 Heart Rate 1: 88 bpm Height: 5'4" Respiratory Rate: 22 bpm Temperature: 36 .6 (C) / 97.8 (F) Weight: 199 lbs 08/04/2012 Blood Pressure 1: 128/74 Code: 8480-6 BMI: 34.0 Code: 20942-9 Heart Rate 1: 92 bpm Height: 5'4" Respiratory Rate: 20 bpm Temperature: 36 .4 (C) / 97.5 (F) Weight: 198 lbs 07/21/2012 Blood Pressure 1: 124/86 Code: 8480-6 Heart Rate 1: 116 bpm Respiratory Rate: 24 bpm Temperature: 36.8 (C) / 98.2 (F) 07/02/2012 Blood Pressure 1: 116/ Code: 8480-6 BMI: 33.6 Code: 17203-2 Heart Rate 1: 76 bpm Height: 5'4" Respiratory Rate: 20 bpm Temperature: 36 .8 (C) / 98.3 (F) Weight: 196 lbs 06/24/2012 Blood Pressure 1: 124/80 Code: 8480-6 BMI: 34.3 Code: 35708-8 Heart Rate 1: 72 bpm Height: 5'4" SpO2: 96% Temperature: 36.3 (C) / 97.3 (F) Weight: 200 lbs 05/20/2012 Blood Pressure 1: 11688 Code: 8480-6 BMI: 33.8 Code: 42764-7 Heart Rate 1: 80 bpm Height: 5'4" Respiratory Rate: 22 bpm Temperature: 36 .9 (C) / 98.4 (F) Weight: 197 lbs 05/08/2012 Blood Pressure 1: 128/86 Code: 8480-6 BMI: 33.8 Code: 42413-2 Heart Rate 1: 76 bpm Height: 5'4" Respiratory Rate: 26 bpm SpO2: 95% Tempera ture: 36.1 (C) / 97.0 (F) Weight: 197 lbs 04/22/2012 Blood Pressure 1: 106/64 Code: 8480-6 BMI: 33.8 Code: 18602-2 Heart Rate 1: 70 bpm Height: 5'4" Temperature: 36.1 (C) / 97.0 (F) Weight: 197 lbs 02/13/2012 Blood Pressure 1: 126/82 Code: 8480-6 BMI: 34.7 Code: 02319-8 Heart Rate 1: 64 bpm Height: 5'4" Respiratory Rate: 20 bpm Temperature: 36 .6 (C) / 97.8 (F) Weight: 202 lbs 01/28/2012 Blood Pressure 1: 116/80 Code: 8480-6 BMI: 34.7 Code: 80540-7 Heart Rate 1: 76 bpm Height: 5'4" Respiratory Rate: 20 bpm Temperature: 36 .8 (C) / 98.3 (F) Weight: 202 lbs 12/26/2011 Blood Pressure 1: 132/82 Code: 8480-6 BMI: 36.0 Code: 64762-4 Heart Rate 1: 68 bpm Height: 5'4" Respiratory Rate: 22 bpm Temperature: 36 .7 (C) / 98.0 (F) Weight: 210 lbs 11/14/2011 Blood Pressure 1: 124/80 Code: 8480-6 BMI: 36.4 Code: 95798-2 Heart Rate 1: 76 bpm Height: 5'4" Respiratory Rate: 20 bpm Temperature: 36 .8 (C) / 98.2 (F) Weight: 212 lbs 09/12/2011 Blood Pressure 1: 108/74 Code: 8480-6 BMI: 37.1 Code: 33486-3 Heart Rate 1: 72 bpm Height: 5'4" Respiratory Rate: 20 bpm Temperature: 37 .0 (C) / 98.6 (F) Weight: 216 lbs 08/15/2011 Blood Pressure 1: 122/80 Code: 8480-6 BMI: 36.9 Code: 28557-2 Heart Rate 1: 76 bpm Height: 5'4" Respiratory Rate: 20 bpm Temperature: 36 .2 (C) / 97.1 (F) Weight: 215 lbs 08/09/2011 Blood Pressure 1: 112/78 Code: 8480-6 BMI: 36.9 Code: 81723-3 Heart Rate 1: 68 bpm Height: 5'4" Respiratory Rate: 20 bpm Temperature: 36 .7 (C) / 98.0 (F) Weight: 215 lbs 07/03/2011 Blood Pressure 1: 140/94 Code: 8480-6 BMI: 36.2 Code: 24664-2 Heart Rate 1: 68 bpm Height: 5'4" Temperature: 36.0 (C) / 96.8 (F) Weight: 211 lbs 06/04/2011 Blood Pressure 1: 124/70 Code: 8480-6 BMI: 36.7 Code: 54404-1 Heart Rate 1: 68 bpm Height: 5'4" Respiratory Rate: 20 bpm Temperature: 36 .6 (C) / 97.9 (F) Weight: 214 lbs 05/03/2011 Blood Pressure 1: 130/76 Code: 8480-6 BMI: 36.4 Code: 03352-4 Heart Rate 1: 74 bpm Height: 5'5" Temperature: 36.2 (C) / 97.2 (F) Weight: 219 lbs 04/05/2011 Blood Pressure 1: 124/86 Code: 8480-6 BMI: 35.9 Code: 48383-7 Heart Rate 1: 76 bpm Height: 5'6" Respiratory Rate: 22 bpm Temperature: 36 .3 (C) / 97.3 (F) Weight: 219 lbs 03/08/2011 Blood Pressure 1: 112/78 Code: 8480-6 BMI: 35.1 Code: 47547-6 Heart Rate 1: 80 bpm Height: 5'6" Respiratory Rate: 26 bpm Temperature: 36 .9 (C) / 98.4 (F) Weight: 214 lbs 01/24/2011 Blood Pressure 1: 110/82 Code: 8480-6 BMI: 35.6 Code: 02646-7 Heart Rate 1: 80 bpm Height: 5'6" Temperature: 36.1 (C) / 97.0 (F) Weight: 217 lbs 01/02/2011 Blood Pressure 1: 106/72 Code: 8480-6 BMI: 35.6 Code: 83811-1 Heart Rate 1: 76 bpm Height: 5'6" [...] 1: 120/74 Code: 8480-6 BMI: 35.9 Code: 16745-4 Heart Rate 1: 72 bpm Height: 5'5" Temperature: 36.3 (C) / 97.4 (F) Weight: 216 lbs 09/19/2010 Blood Pressure 1: 124/80 Code: 8480-6 BMI: 35.4 Code: 47022-2 Heart Rate 1: 76 bpm Height: 5'5" [...] 1: 122/78 Code: 8480-6 BMI: 37.4 Code: 04938-8 Heart Rate 1: 84 bpm Height: 5'5" [...] 10/30/2017 follow up 10/23/2017 Hospital fwup from [facility] Annual Checkup 09/17/2017 Wellness Physical fo [...] follow up 10/26/2015 ER visit from at [facility] for COPD Exacerbation follow up 10/05/2015 ER Visit gait abnormality 09/15/2015 Patient requesting kelly pineda paperwork to be filled out disturbances of thinking 08/24/2015 follow up 07/05/2015 4wk fwup follow up 06/06/2015 Hospital fw cough 05/23/2015 follow up 05/05/2015 dyspnea 03/30/2015 [employer] needs new orde r for O2 abdominal pain 02/03/2015 cyst 12/29/2014 vs abscess follow up 09/02/2014 [facility] fw headache 08/25/2014 facial drooping follow up 04/01/2014 ER follow up 03/16/2014 1wk fwup follow up 03/09/2014 1mo fwup and bronchi tis fwup follow up 03/03/2014 2 day follow up 03/01/2014 ER follow up 02/09/2014 Hospital [facility] gastroesophageal reflux 12/23/2013 painful urination 10/30/2013 UTI [...] up 10/18/[address] Marcela sagastume w [facility], having increased allergy symptoms. Would like steroid [...] f/u follow up 12/07/[facility], done with PT--finished about 2wks ago [...] weakness[ICD10: M62.81] Belia BRUNSON Bushra Mayda [facility] CPT-4: 61353 05/13/2019 ([id number]) OFFICE/OUTPATIENT VISIT EST Diagnosis: Stridor[ICD10: R06.1] Diagnosis: COUGH[ICD10: R05] Belia BRUNSON BushraMayda [facility] [place] CPT-4: 42524 05/06/2019 ([id number]) OFFICE/OUTPATIENT VISIT EST Diagnosis: Stridor[ICD10: R06.1] Diagnosis: Muscle, jerky movements (uncontrolled)[ICD10: G25.5] Belia BRUNSON BushraMayda [facility] [place] CPT-4: 73267 04/29/2019 ([id number]) OFFICE/OUTPATIENT VISIT EST Diagnosis: Upper respiratory infection[ICD10: J06.9] Diagnosis: Flank pain[ICD10: R10.9] Diagnosis: Weight gain[ICD10: R63.5] Pattie Sotomayor BELIA BushraMayda YANDEL KATINA [place] CPT-4: 12657 04/16/2019 ([id number]) OFFICE/OUTPATIENT VISIT EST Diagnosis: Generalized pruritus[ICD10: L29.9] Belia Shi [facility] [place] CPT-4: 50419 04/08/2019 ([id number]) OFFICE/OUTPATIENT VISIT EST Diagnosis: Acute bursitis of left shoulder[ICD10: M75.52] Diagnosis: Cervicalgia[ICD10: M54.2] Diagnosis: Chest wall pain[ICD10: R07.89] Belia BRUNSON Bushra Mayda [facility] [place] CPT-4: 44361 01/22/2019 ([id number]) OFFICE/OUTPATIENT VISIT EST Diagnosis: Abdominal pain[ICD10: R10.9] Diagnosis: Pyelonephritis[ICD10: N12] Pattie DOMINGUEZ [employer] [facility] CPT-4: 97568 01/07/2019 ([id number]) OFFICE/OUTPATIENT VISIT EST Diagnosis: Low back pain[ICD10: M54.5] Diagnosis: Left lumbar radiculopathy[ICD10: M54.16] Diagnosis: Left flank pain[ICD10: R10.9] Diagnosis: Left lower quadrant pain[ICD10: R10.32] Diagnosis: FLU VACCINE[ICD10: Z23] Belia FREDERICK [place] CPT-4: 69635 12/24/2018 ([id number]) OFFICE/OUTPATIENT VISIT EST Diagnosis: Migraine, unspecified, not intractable, without status migrainosus[ICD10: G43.909] Diagnosis: Fibromyalgia[ICD10: M79.7] Belia DOMINGUEZ [employer] [facility] CPT-4: 98393 11/20/2018 ([id number]) OFFICE/OUTPATIENT VISIT EST Diagnosis: Migraine, unspecified, intractable, without status migrainosus[ICD10: G43.919] Diagnosis: Acute sinusitis, unspecified[ICD10: J01.90] Pattie REID DO [facility] CPT-4: 14880 11/04/2018 ([id number]) OFFICE/OUTPATIENT VISIT EST Diagnosis: Pain in left wrist[ICD10: M25.532] Diagnosis: Other dorsalgia[ICD10: M54.89] Pattie REID [employer] [facility] CPT-4: 35051 09/08/2018 ([id number]) OFFICE/OUTPATIENT VISIT EST Diagnosis: Acute stress reaction[ICD10: F43.0] Diagnosis: Pruritus, unspecified[ICD10: L29.9] 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, 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] Belia REID [place] CPT-4: 62052 08/20/2018 ([id number]) OFFICE/OUTPATIENT VISIT EST Diagnosis: Hypotension due to drugs[ICD10: I95.2] Diagnosis: Paroxysmal atrial fibrillation[ICD10: I48.0] Diagnosis: Localized edema[ICD10: R60.0] Belia REID DO [facility] CPT-4: 44352 06/19/2018 ([id number]) OFFICE/OUTPATIENT VISIT EST Diagnosis: Generalized hyperhidrosis[ICD10: R61] Diagnosis: Essential (primary) hypertension[ICD10: I10] Diagnosis: Supraventricular tachycardia[ICD10: I47.1] Belia REID DO [facility] CPT-4: 66043 06/09/2018 ([id number]) OFFICE/OUTPATIENT VISIT EST Diagnosis: Stridor[ICD10: R06.1] Diagnosis: Dependence on supplemental oxygen[ICD10: Z99.81] Diagnosis: Weakness[ICD10: R53.1] Diagnosis: Supraventricular tachycardia[ICD10: I47.1] Belia REID DO [facility] CPT-4: 99419 05/21/2018 ([id number]) OFFICE/OUTPATIENT VISIT EST Diagnosis: Cervical disc disorder with radiculopathy, unspecified cervical region[ICD10: M50.10] Belia REID DO [facility] CPT-4: 55660 04/16/2018 ([id number]) OFFICE/OUTPATIENT VISIT EST Diagnosis: Migraine, unspecified, intractable, without status migrainosus[ICD10: G43.919] Diagnosis: Fibromyalgia[ICD10: M79.7] Pattie DOMINGUEZ [facility] CPT-4: 03809 04/01/2018 ([id number]) NURSE/OUTPATIENT VISIT EST Diagnosis: Hematuria, unspecified[ICD10: R31.9] Diagnosis: Dysuria[ICD10: R30.0] Belia REID DO [facility] CPT-4: 96460 03/17/2018 ([id number]) OFFICE/OUTPATIENT VISIT EST Diagnosis: Erythema intertrigo[ICD10: L30.4] Diagnosis: Chronic obstructive pulmonary disease with (acute) exacerbation[ICD10: J44.1] Diagnosis: Type 2 diabetes mellitus with hyperglycemia[ICD10: E11.65] Belia REID DO [facility] CPT-4: 46968 03/06/2018 ([id number]) OFFICE/OUTPATIENT VISIT EST Diagnosis: Cervicalgia[ICD10: M54.2] Pattie AMBRIZ [facility] CPT-4: 94801 02/05/2018 ([id number]) OFFICE/OUTPATIENT VISIT EST Diagnosis: Candidiasis of skin and nail[ICD10: B37.2] Diagnosis: Cervicalgia[ICD10: M54.2] Pattie AMBRIZ [facility] CPT-4: 92264 01/20/2018 ([id number]) OFFICE/OUTPATIENT VISIT EST Diagnosis: Pain in thoracic spine[ICD10: M54.6] Diagnosis: Radiculopathy, thoracic region[ICD10: M54.14] Belia REID [facility] CPT-4: 39334 12/25/2017 ([id number]) OFFICE/OUTPATIENT VISIT EST Diagnosis: Pain in thoracic spine[ICD10: M54.6] Diagnosis: Other muscle spasm[ICD10: M62.838] Diagnosis: FLU VACCINE[ICD10: Z23] Diagnosis: PNEUMOCOCCAL VACCINE[ICD10: Z23] Belia REID [facility] CPT-4: 46749 12/17/2017 ([id number]) OFFICE/OUTPATIENT VISIT EST Diagnosis: Chronic obstructive pulmonary disease with (acute) exacerbation[ICD10: J44.1] Belia REID [facility] CPT- 4: 41011 10/30/2017 ([id number]) OFFICE/OUTPATIENT VISIT EST Diagnosis: Chronic obstructive pulmonary disease with acute lower respiratory infection[ICD10: J44.0] Diagnosis: Mild intermittent asthma with (acute) exacerbation[ICD10: J45.21] Belia REID [facility] CPT-4: 15415 10/23/2017 ([id number]) NURSE/OUTPATIENT VISIT EST Diagnosis: Migraine, unspecified, not intractable, without status migrainosus[ICD10: G43.909] Belia REID [facility] CPT - 4: 63984 08/26/2017 ([id number]) OFFICE/OUTPATIENT VISIT EST Diagnosis: Urinary tract infection, site not specified[ICD10: N39.0] Diagnosis: Encounter for screening for osteoporosis[ICD10: Z13.820] Diagnosis: Encounter for screening mammogram for malignant neoplasm of breast[ICD10: Z12.31] Diagnosis: Acute bronchitis, unspecified[ICD10: J20.9] Pattie REID DO [facility] CPT-4: 26471 07/19/2017 ([id number]) OFFICE/OUTPATIENT VISIT EST Diagnosis: Rash and other nonspecific skin eruption[ICD10: R21] Pattie REID DO [facility] CPT-4: 94749 05/29/2017 ([id number]) OFFICE/OUTPATIENT VISIT EST Diagnosis: Diarrhea, unspecified[ICD10: R19.7] Diagnosis: Tinea corporis[ICD10: B35.4] Diagnosis: Tinea cruris[ICD10: B35.6] Diagnosis: Migraine, unspecified, not intractable, without status migrainosus[ICD10: G43.909] Belia REID [employer] [facility] CPT - 4: 95473 05/07/2017 ([id number]) OFFICE/OUTPATIENT VISIT EST Diagnosis: Stridor[ICD10: R06.1] Diagnosis: Chronic obstructive pulmonary disease with (acute) exacerbation[ICD10: J44.1] Belia REID DO [facility] CPT- 4: 00315 03/18/2017 ([id number]) OFFICE/OUTPATIENT VISIT EST Diagnosis: Type 2 diabetes mellitus with hyperglycemia[ICD10: E11.65] Belia REID DO [facility] CPT-4: 67979 02/27/2017 OFFICE/OUTPATIENT VISIT EST Diagnosis: Type 2 diabetes mellitus with hyperglycemia[ICD10: E11.65] Pattie REID DO [facility] CPT-4: 68823 02/22/2017 ([id number]) OFFICE/OUTPATIENT VISIT EST Diagnosis: Urinary tract infection, site not specified[ICD10: N39.0] Diagnosis: Pneumonia, unspecified organism[ICD10: J18.9] Diagnosis: Type 2 diabetes mellitus with hyperglycemia[ICD10: E11.65] Belia REID DO [facility] CPT-4: 14256 01/23/2017 ([id number]) OFFICE/OUTPATIENT VISIT EST Diagnosis: Type 2 diabetes mellitus with hyperglycemia[ICD10: E11.65] Diagnosis: Localized edema[ICD10: R60.0] Diagnosis: PNEUMOCOCCAL VACCINE[ICD10: Z23] Diagnosis: FLU VACCINE[ICD10: Z23] Belia FREDERICK [facility] CPT-4: 12454 12/20/2016 OFFICE/OUTPATIENT VISIT EST Diagnosis: Pain in thoracic spine[ICD10: M54.6] Diagnosis: Low back pain[ICD10: M54.5] Diagnosis: Cervicalgia[ICD10: M54.2] Diagnosis: Cough[ICD10: R05] Celeste Ferreira BELIA REID [facility] CPT-4: 04078 10/08/2016 ([id number]) OFFICE/OUTPATIENT VISIT EST Diagnosis: Primary insomnia[ICD10: F51.01] Diagnosis: Migraine, unspecified, not intractable, without status migrainosus[ICD10: G43.909] Diagnosis: Type 2 diabetes mellitus with hyperglycemia[ICD10: E11.65] Belia REID DO [facility] CPT-4: 97509 09/19/2016 ([id number]) OFFICE/OUTPATIENT VISIT EST Diagnosis: Migraine, unspecified, not intractable, without status migrainosus[ICD10: G43.909] Diagnosis: Generalized abdominal pain[ICD10: R10.84] Diagnosis: Cough[ICD10: R05] Belia REID DO [facility] CPT-4: 38714 08/20/2016 ([id number]) OFFICE/OUTPATIENT VISIT EST Diagnosis: Chronic obstructive pulmonary disease, unspecified[ICD10: J44.9] Diagnosis: Stridor[ICD10: R06.1] Belia REID DO [facility] CPT-4: 91180 06/19/2016 ([id number]) OFFICE/OUTPATIENT VISIT EST Diagnosis: Chronic obstructive pulmonary disease, unspecified[ICD10: J44.9] Diagnosis: Personal history of urinary (tract) infections[ICD10: Z87.440] Belia REID [facility] CPT-4: 65734 06/04/2016 ([id number]) OFFICE/OUTPATIENT VISIT EST Diagnosis: Stridor[ICD10: R06.1] Diagnosis: Chronic obstructive pulmonary disease with acute lower respiratory infection[ICD10: J44.0] Diagnosis: Other specified diseases of intestine[ICD10: K63.89] Diagnosis: Cystitis, unspecified without hematuria[ICD10: N30.90] Belia REID [facility] CPT-4: 88729 05/02/2016 ([id number]) OFFICE/OUTPATIENT VISIT EST Diagnosis: Fibromyalgia[ICD10: M79.7] Diagnosis: Urinary tract infection, site not specified[ICD10: N39.0] Belia REID [facility] CPT-4: 05432 04/03/2016 ([id number]) OFFICE/OUTPATIENT VISIT EST Diagnosis: Unspecified asthma, uncomplicated[ICD10: J45.909] Diagnosis: Cough[ICD10: R05] LidiaClarita REID [facility] T-4: 64156 02/29/2016 ([id number]) OFFICE/OUTPATIENT VISIT EST Diagnosis: Migraine, unspecified, intractable, without status migrainosus[ICD10: G43.919] Diagnosis: Urinary tract infection, site not specified[ICD10: N39.0] Belia REID [facility] CPT-4: 87898 02/02/2016 ([id number]) OFFICE/OUTPATIENT VISIT EST Diagnosis: Urinary tract infection, site not specified[ICD10: N39.0] Diagnosis: Unspecified abdominal pain[ICD10: R10.9] Diagnosis: Pain in thoracic spine[ICD10: M54.6] Diagnosis: Type 2 diabetes mellitus with diabetic neuropathic arthropathy[ICD10: E11.610] Belia REID [facility] CPT-4: 42453 12/05/2015 ([id number]) OFFICE/OUTPATIENT VISIT EST Diagnosis: Chronic obstructive pulmonary disease with (acute) exacerbation[ICD10: J44.1] Diagnosis: Migraine, unspecified, not intractable, without status migrainosus[ICD10: G43.909] Lidia CORNELLLINE Yuridia REID DO [facility] CPT -4: 34796 10/26/2015 ([id number]) OFFICE/OUTPATIENT VISIT EST Diagnosis: Hematuria, unspecified[ICD10: R31.9] Diagnosis: Urinary tract infection, site not specified[ICD10: N39.0] Lidia HSUQUELINE Yuridia REID DO [facility] CPT-4: 29555 10/05/2015 OFFICE/OUTPATIENT VISIT EST Diagnosis: Chronic obstructive pulmonary disease, unspecified[ICD10: J44.9] Diagnosis: Muscle weakness (generalized)[ICD10: M62.81] Diagnosis: Polyneuropathy, unspecified[ICD10: G62.9] Diagnosis: Other intervertebral disc degeneration, 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] Diagnosis: Fibromyalgia[ICD10: M79.7] Belia Franklin HSUQUELINE Yuridia DOMINGUEZ [facility] CPT-4: 13044 09/15/2015 ([id number]) OFFICE/OUTPATIENT VISIT EST Diagnosis: Disorientation, unspecified[ICD10: R41.0] Diagnosis: Headache[ICD10: R51] Diagnosis: Paresthesia of skin[ICD10: R20.2] Lidia Hwang KOFFI Paredes Yuridia REID [facility] CPT-4: 94605 08/24/2015 ([id number]) OFFICE/OUTPATIENT VISIT EST Diagnosis: Type 2 diabetes mellitus with hyperglycemia[ICD10: E11.65] Diagnosis: Chronic obstructive pulmonary disease with acute lower respiratory infection[ICD10: J44.0] Belia Yandelisabellaannie HSUBELIA BushraMayda FRANKLIN [facility] CPT-4: 11503 07/05/2015 ([id number]) OFFICE/OUTPATIENT VISIT EST Diagnosis: Mild intermittent asthma with (acute) exacerbation[ICD10: J45.21] Diagnosis: Chronic obstructive pulmonary disease, unspecified[ICD10: J44.9] Belia Yandelisabellaannie HSUBELIA BushraMayda FRANKLIN [facility] CPT-4: 48396 06/06/2015 ([id number]) OFFICE/OUTPATIENT VISIT EST Diagnosis: Chronic obstructive pulmonary disease with (acute) exacerbation[ICD10: J44.1] Lidia Hwang BELIA BushraMayda FRANKLIN RUDOLPH [facility] CPT- 4: 96144 05/23/2015 ([id number]) OFFICE/OUTPATIENT VISIT EST Diagnosis: Type 2 diabetes mellitus with hyperglycemia[ICD10: E11.65] Diagnosis: Functional dyspepsia[ICD10: K30] Belia [facility] CPT-4: 98588 05/05/2015 ([id number]) OFFICE/OUTPATIENT VISIT EST Diagnosis: Type 2 diabetes mellitus with hyperglycemia[ICD10: E11.65] Diagnosis: Glycosuria[ICD10: R81] Diagnosis: Urinary tract infection, site not specified[ICD10: N39.0] Belia [facility] CPT-4: 28319 03/30/2015 ([id number]) OFFICE/OUTPATIENT VISIT EST Diagnosis: Generalized abdominal pain[ICD10: R10.84] Diagnosis: Diarrhea, unspecified[ICD10: R19.7] Diagnosis: Urinary tract infection, site not specified[ICD10: N39.0] Diagnosis: Gastro-esophageal reflux disease without esophagitis[ICD10: K21.9] Belia [facility] CPT-4: 13277 02/03/2015 ([id number]) OFFICE/OUTPATIENT VISIT EST Diagnosis: Other specified noninflammatory disorders of vagina[ICD10: N89.8] Diagnosis: Follicular disorder, unspecified[ICD10: L73.9] Diagnosis: Functional dyspepsia[ICD10: K30] Diagnosis: FLU VACCINE[ICD10: Z23] Belia [facility] CPT-4: 93402 12/29/2014 ([id number]) OFFICE/OUTPATIENT VISIT EST 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] Diagnosis: RESTLESS LEGS SYNDROME[ICD9: 333.94] Diagnosis: MIGRAINE NOS/NOT INTRCBL[ICD9: 346.90] Belia [facility] CPT-4: 61029 09/02/2014 ([id number]) OFFICE/OUTPATIENT VISIT EST Diagnosis: Cervical radiculopathy[ICD9: 723.4] Diagnosis: Cervicalgia[ICD9: 723.1] Diagnosis: Degenerative disc disease, cervical[ICD9: 722.4] 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I[ICD9: 250.00] Belia REID [facility] CPT-4: 01999 04/01/2014 OFFICE/OUTPATIENT VISIT EST Diagnosis: Reactive airway disease[ICD9: 493.90] Belia REID DO [facility] CPT-4: 99126 03/16/2014 ([id number]) OFFICE/OUTPATIENT VISIT EST Diagnosis: BRONCHITIS, ACUTE[ICD9: 466.0] Diagnosis: Reactive airway disease[ICD9: 493.90] Belia REID [facility] CPT-4: 61085 03/09/2014 OFFICE/OUTPATIENT VISIT EST Diagnosis: BRONCHITIS, ACUTE[ICD9: 466.0] Diagnosis: WHEEZING[ICD9: 786.07] Huong Peguero [facility] CPT-4: 07415 03/03/2014 OFFICE/OUTPATIENT VISIT EST Diagnosis: BRONCHITIS, ACUTE[ICD9: 466.0] Diagnosis: WHEEZING[ICD9: 786.07] Huong Peguero [facility] CPT-4: 85715 03/01/2014 ([id number]) OFFICE/OUTPATIENT VISIT EST Diagnosis: GERD[ICD9: 530.81] Diagnosis: ARTHRALGIA-MULTIPLE SITES[ICD9: 719.49] Diagnosis: LUMB/LUMBOSAC DISC DEGEN[ICD9: 722.52] Diagnosis: - I - FIBROMYALGIA[ICD9: 729.1] Belia REID [facility] CPT-4: 30582 02/09/2014 ([id number]) OFFICE/OUTPATIENT VISIT EST Diagnosis: Peptic ulcer disease[ICD9: 533.90] Diagnosis: RESTLESS LEGS SYNDROME[ICD9: 333.94] Diagnosis: Neuropathy[ICD9: 355.9] Belia CORNELLLINE Yuridia [facility] CPT-4: 19414 12/23/2013 ([id number]) OFFICE/OUTPATIENT VISIT EST Diagnosis: URINARY TRACT INFECTION[ICD9: 599.0] Belia CORNELL CLAYTON Yuridia REID [facility] CPT-4: 56226 10/30/2013 ([id number]) OFFICE/OUTPATIENT VISIT EST Diagnosis: Flank pain[ICD9: 789.00] Belia Reid BELIA BushraMayda KIES[facility] CPT-4: 78008 10/21/2013 ([id number]) OFFICE/OUTPATIENT VISIT EST Diagnosis: INFLAMED SEBORR KERATOS[ICD9: 702.11] Diagnosis: Brachioradial pruritus[ICD9: 698.9] Diagnosis: ASTHMA NOS[ICD9: 493.90] Belia Yandelisabellaannie BELIA BushraMayda KIESHA [facility] CPT-4: 78205 10/05/2013 ([id number]) OFFICE/OUTPATIENT VISIT EST Diagnosis: HYPERTENSION[ICD9: 401.9] Diagnosis: - I - FIBROMYALGIA[ICD9: 729.1] Diagnosis: DIZZINESS/VERTIGO[ICD9: 780.4] Diagnosis: MIGRAINE NOS/NOT INTRCBL[ICD9: 346.90] Diagnosis: Diabetic peripheral neuropathy[ICD9: 250.60] Diagnosis: Flank pain[ICD9: 789.00] Belia BRUNSON BushraMayda [facility] CPT-4: 99876 08/04/2013 ([id number]) OFFICE/OUTPATIENT VISIT EST Diagnosis: ALLERGIC RHINITIS[ICD9: 477.9] Belia Yandelisabellaannie [facility]IA Bushra [facility]: 08593 07/13/2013 OFFICE/OUTPATIENT VISIT EST Diagnosis: URINARY TRACT INFECTION[ICD9: 599.0] Huong ARNOLD BushraMayda [facility] CPT-4: 18447 07/03/2013 OFFICE/OUTPATIENT VISIT EST Diagnosis: HYPERTENSION[ICD9: 401.9] Diagnosis: URINARY TRACT INFECTION[ICD9: 599.0] Diagnosis: BACKACHE[ICD9: 724.5] Diagnosis: URINARY INCONTINENCE[ICD9: 788.30] [facility]: 24401 05/27/2013 ([id number]) OFFICE/OUTPATIENT VISIT EST Diagnosis: Flank pain[ICD9: 789.00] Belia BRUNSON BushraMayda [facility] CPT-4: 57857 05/25/2013 ([id number]) OFFICE/OUTPATIENT VISIT EST Diagnosis: B-COMPLEX DEFIC NEC[ICD9: 266.2] Belia REID [facility] CPT-4: 24918 05/04/2013 ([id number]) OFFICE/OUTPATIENT VISIT EST Diagnosis: ALLERGIC RHINITIS[ICD9: 477.9] Diagnosis: Vitamin B12 deficiency[ICD9: 266.2] Belia REID [facility] CPT-4: 09834 04/17/2013 ([id number]) OFFICE/OUTPATIENT VISIT EST 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I[ICD9: 250.00] Diagnosis: URINARY TRACT INFECTION[ICD9: 599.0] Diagnosis: DIZZINESS/VERTIGO[ICD9: 780.4] Diagnosis: DIARRHEA[ICD9: 787.91] Belia Peguero [facility] CPT-4: 67503 04/06/2013 ([id number]) OFFICE/OUTPATIENT VISIT EST Diagnosis: URINARY TRACT INFECTION[ICD9: 599.0] Diagnosis: URINARY RETENTION[ICD9: 788.20] Belia REID [facility] CPT-4: 61174 11/10/2012 ([id number]) OFFICE/OUTPATIENT VISIT EST Diagnosis: TACHYCARDIA[ICD9: 785.0] Diagnosis: SYNCOPE AND COLLAPSE[ICD9: 780.2] Diagnosis: CONSCIOUSNS ALTERAT NEC[ICD9: 780.09] Belia REID [facility] CPT-4: 35492 09/02/2012 OFFICE/OUTPATIENT VISIT EST Diagnosis: TACHYCARDIA[ICD9: 785.0] Diagnosis: SYNCOPE AND COLLAPSE[ICD9: 780.2] Belia REID [facility] CPT-4: 55992 08/04/2012 ([id number]) OFFICE/OUTPATIENT VISIT EST Diagnosis: Loss of consciousness[ICD9: 780.09] Diagnosis: Tachycardia[ICD9: 785.0] Diagnosis: MALAISE AND FATIGUE[ICD9: 780.79] Belia REID [facility] CPT-4: 35799 07/21/2012 ([id number]) OFFICE/OUTPATIENT VISIT EST Diagnosis: BRONCHITIS, ACUTE[ICD9: 466.0] Diagnosis: ASTHMA NOS[ICD9: 493.90] Belia POOLE [facility] CPT-4: 02552 07/02/2012 ([id number]) OFFICE/OUTPATIENT VISIT EST Diagnosis: CEPHALGIA[ICD9: 784.0] Belia Peguero [facility] CPT-4: 12480 06/25/2012 ([id number]) OFFICE/OUTPATIENT VISIT EST Diagnosis: GERD[ICD9: 530.81] Diagnosis: DIARRHEA[ICD9: 787.91] Diagnosis: URINARY TRACT INFECTION[ICD9: 599.0] Diagnosis: ASTHMA NOS[ICD9: 493.90] Diagnosis: ALLERGIC RHINITIS[ICD9: 477.9] Belia REID [facility] CPT-4: 55668 06/24/2012 ([id number]) OFFICE/OUTPATIENT VISIT EST Diagnosis: MIGRAINE NOS/NOT INTRCBL[ICD9: 346.90] Diagnosis: TREMOR NEC[ICD9: 333.1] Diagnosis: CHRONIC PAIN SYNDROME[ICD9: 338.4] Belia REID [facility] CPT-4: 58963 05/20/2012 ([id number]) OFFICE/OUTPATIENT VISIT EST Diagnosis: DIZZINESS/VERTIGO[ICD9: 780.4] Diagnosis: PALPITATIONS[ICD9: 785.1] Diagnosis: TREMOR NEC[ICD9: 333.1] Diagnosis: ANXIETY STATE NOS[ICD9: 300.00] Diagnosis: POSTTRAUMATIC STRESS DISORDER[ICD9: 309.81] Belia REID [facility] CPT-4: 57017 05/08/2012 ([id number]) OFFICE/OUTPATIENT VISIT EST Diagnosis: MIGRAINE NOS/NOT INTRCBL[ICD9: 346.90] Diagnosis: FIBROMYALGIA[ICD9: 729.1] Diagnosis: SYNCOPE AND COLLAPSE[ICD9: 780.2] Diagnosis: Diabetic peripheral neuropathy[ICD9: 250.60] Belia REID [facility] CPT-4: 10230 04/22/2012 OFFICE/OUTPATIENT VISIT EST Diagnosis: ROTATOR CUFF DIS NEC[ICD9: 726.19] Diagnosis: JOINT PAIN-SHLDER[ICD9: 719.41] Diagnosis: DYSPEPSIA[ICD9: 536.8] Belia Peguero [employer] [facility] CPT-4: 51261 02/13/2012 ([id number]) OFFICE/OUTPATIENT VISIT EST Diagnosis: MIGRAINE NOS/NOT INTRCBL[ICD9: 346.90] Diagnosis: GERD[ICD9: 530.81] Diagnosis: DYSPEPSIA[ICD9: 536.8] Belia Peguero [employer] [facility] CPT-4: 90829 01/28/2012 OFFICE/OUTPATIENT VISIT EST Diagnosis: CEPHALGIA[ICD9: 784.0] Diagnosis: MIGRAINE NOS/NOT INTRCBL[ICD9: 346.90] Diagnosis: GERD[ICD9: 530.81] Diagnosis: INSOMNIA NOS[ICD9: 780.52] Belia DOMINGUEZ [employer] [facility] CPT-4: 05885 12/26/2011 ([id number]) OFFICE/OUTPATIENT VISIT EST Diagnosis: CEPHALGIA[ICD9: 784.0] Diagnosis: MIGRAINE NOS/NOT INTRCBL[ICD9: 346.90] Diagnosis: MALAISE AND FATIGUE[ICD9: 780.79] Diagnosis: FIBROMYALGIA[ICD9: 729.1] Diagnosis: ALLERGIC RHINITIS[ICD9: 477.9] Belia REID [facility] CPT-4: 59302 11/14/2011 ([id number]) OFFICE/OUTPATIENT VISIT EST Diagnosis: MALAISE AND FATIGUE[ICD9: 780.79] Diagnosis: MUSCLE WEAKNESS-GENERAL[ICD9: 728.87] Diagnosis: MIGRAINE NOS/NOT INTRCBL[ICD9: 346.90] Diagnosis: JOINT PAIN-SHLDER[ICD9: 719.41] Belia REID [employer] [facility] CPT-4: 69238 09/12/2011 ([id number]) OFFICE/OUTPATIENT VISIT EST Diagnosis: CONCUSSION[ICD9: 850.9] Diagnosis: Ataxia[ICD9: 781.3] Diagnosis: DIZZINESS/VERTIGO[ICD9: 780.4] Belia REID [facility] CPT-4: 60794 08/15/2011 ([id number]) OFFICE/OUTPATIENT VISIT EST Diagnosis: THROMBOPHLEBITIS[ICD9: 451.9] Diagnosis: Subacromial bursitis[ICD9: 726.19] Diagnosis: ALLERGIC RHINITIS[ICD9: 477.9] Diagnosis: Lipoma[ICD9: 214.9] Belia REID [facility] CPT-4: 04046 08/09/2011 ([id number]) OFFICE/OUTPATIENT VISIT EST Diagnosis: THROMBOPHLEBITIS[ICD9: 451.9] Diagnosis: Arm pain[ICD9: 729.5] Diagnosis: Clostridium difficile colitis[ICD9: 008.45] Diagnosis: URINARY TRACT INFECTION[ICD9: 599.0] Belia Shi [facility] CPT-4: 84446 07/03/2011 ([id number]) OFFICE/OUTPATIENT VISIT EST Diagnosis: ARTHRALGIA-MULTIPLE SITES[ICD9: 719.49] Diagnosis: Muscle cramp[ICD9: 729.82] Diagnosis: INSOMNIA NOS[ICD9: 780.52] [facility] CPT[facility]: 41221 06/04/2011 OFFICE/OUTPATIENT VISIT EST Diagnosis: Headache[ICD9: 784.0] Diagnosis: Allergic rhinitis[ICD9: 477.9] [facility]: 98831 05/03/2011 OFFICE/OUTPATIENT VISIT EST Diagnosis: LUMB/LUMBOSAC DISC DEGEN[ICD9: 722.52] Diagnosis: MIGRAINE NOS/NOT INTRCBL[ICD9: 346.90] Diagnosis: CHRONIC PAIN SYNDROME[ICD9: 338.4] Diagnosis: RESTLESS LEGS SYNDROME[ICD9: 333.94] [facility] CPT[facility]: 40791 04/05/2011 OFFICE/OUTPATIENT VISIT EST Diagnosis: MIGRAINE NOS/NOT INTRCBL[ICD9: 346.90] Diagnosis: GERD[ICD9: 530.81] [facility] CPT-[facility]: 79966 03/08/2011 OFFICE/OUTPATIENT VISIT EST Diagnosis: URINARY TRACT INFECTION[ICD9: 599.0] Diagnosis: Vertigo[ICD9: 780.4] Diagnosis: GERD[ICD9: 530.81] Belia REID DO [facility] CPT-4: 57392 01/24/2011 OFFICE/OUTPATIENT VISIT EST Diagnosis: Hypotension[ICD9: 458.9] Diagnosis: Syncopal episodes[ICD9: 780.2] Diagnosis: MIGRAINE NOS/NOT INTRCBL[ICD9: 346.90] Diagnosis: MALAISE AND FATIGUE[ICD9: 780.79] Belia Yandelisabellaannie SHARMANDER DO [facility] CPT-4: 98163 01/02/2011 OFFICE/OUTPATIENT VISIT EST Diagnosis: Tinea cruris[ICD9: 110.3] Diagnosis: Intertrigo[ICD9: 695.89] Diagnosis: MIGRAINE NOS/NOT INTRCBL[ICD9: 346.90] Belia GaribayLUBNA TomlinsonMayda YANDELNDER DO [facility] CPT-4: 75386 12/07/2010 OFFICE/OUTPATIENT VISIT EST Diagnosis: PALPITATIONS[ICD9: 785.1] Diagnosis: ANXIETY STATE NOS[ICD9: 300.00] Belia Franklin SHARMANDER DO [facility] CPT-4: 73831 11/16/2010 OFFICE/OUTPATIENT VISIT EST Diagnosis: URINARY TRACT INFECTION[ICD9: 599.0] Diagnosis: MIGRAINE NOS/NOT INTRCBL[ICD9: 346.90] Iraida GaribayLUBNA SMayda SHARMANDER DO [facility] CPT-4: 02706 11/02/2010 OFFICE/OUTPATIENT VISIT EST Diagnosis: ALLERGIC RHINITIS[ICD9: 477.9] Diagnosis: ANXIETY STATE NOS[ICD9: 300.00] Belia Yandelkatina BRUNSON BushraMayda YANDELNDER DO [facility] CPT-4: 66872 10/18/2010 OFFICE/OUTPATIENT VISIT EST Belia Yandelkatina BRUNSON BushraMayda YANDEL NDER DO [facility] CPT- 4: 07499 09/19/2010 OFFICE/OUTPATIENT VISIT EST Belia Yandelisabellaannie BELIA BushraMayda YANDEL NDER DO [facility] CPT- 4: 28868 09/06/2010 ([id number]) OFFICE/OUTPATIENT VISIT EST Belia GaribayLUBNA SMayda YANDELNDER DO [facility] CPT-4: 93403 08/10/2010 ([id number]) OFFICE/OUTPATIENT VISIT EST Belia [facility] CPT-4: 11446 05/11/2010 ([id number]) OFFICE/OUTPATIENT VISIT, EST Belia [facility] CPT-4: 01905 04/06/2010 ([id number]) OFFICE/OUTPATIENT VISIT, EST Belia HSU [facility] CPT-4: 04709 02/09/2010 ([id number]) OFFICE/OUTPATIENT VISIT, EST Belia HUS [facility] CPT-4: 43117 01/05/2010 ([id number]) OFFICE/OUTPATIENT VISIT, EST Belia [facility] CPT-4: 02896 12/07/2009 ([id number]) OFFICE/OUTPATIENT VISIT, EST Belia H[facility] CPT-4: 20609 11/08/2009 ([id number]) OFFICE/OUTPATIENT VISIT, EST Belia HSU [facility] CPT-4: 99983 10/24/2009 ([id number]) OFFICE/OUTPATIENT VISIT, EST Belia [facility] CPT-4: 45492 07/25/2009 ([id number]) OFFICE/OUTPATIENT VISIT, RIOS 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 ICD-9 : 786.1 ICD-10 : R06.1 05/06/2019 Appointment: Belia Reid WPtel: [address] [place], [place] [phone] FOLLOW UP 05/06/2019 Patient Education: Singulair- [employer] Coupon [id number] https://www.Avuba/sampleMarginLeft/resources/getResource/61/8675065r-h43v-52r7-yg Completed 05/06/2019 Care Plan: CT THORAX W/O DYE LOINC : 473 66-0 Pending 05/06/2019 Appointment: Belia Reid WPtel: [address] [place] [address] US RESCHEDULED 04/30/2019 Visit Diagnosis Plan: Muscle, [...] : R06.1 04/29/2019 Appointment: Belia Reid WPtel: [address] [place] [address] Hospital Follow Up 04/29/2019 Patient Education: Valium- [employer] Coupon [id number] https://www.[employer]uba/samplemd/resources/getResource/61/k46373vc-274s-4a22-9v Completed 04/29/2019 Visit Diagnosis Plan: Weight gain [...] ICD-10 : R10.9 04/16/2019 Appointment: Pattie Sotomayor [address] [place] [address] ACUTE ILLNESS 04/16/2019 Patient Education: cyclobenzaprine- [employer] Coupon [id number] https://www.[employer]uba/Selleration/resources/getResource/61/[email or web address]-z8 Completed 04/16/2019 Visit Diagnosis Plan: Migraine, unspecif ied, not intractable, without status migrainosus Discussion: Increase gabapentin to 600mg po BID ICD-9 : 346.90 ICD-10 : G43.909 04/08/2019 Visit Diagnosis Plan: Generalized pruritus Discussion: Hydroxyzine 25mg po TID for itching and anxiety ICD-9 : 698.9 ICD-10 : L29.9 04/08/2019 Appointment: Belia Reid WPtel: [address] [place] [address] ACUTE ILLNESS 04/08/2019 Visit Diagnosis Plan: Cervicalgia [...] : M75.52 01/22/2019 Appointment: Belia Reid WPtel: [address] [place] [address] Hospital Follow Up 01/22/2019 Visit Diagnosis Plan: Abdominal pain Discussion: urine culture sent to assess for any infection. rocephin given in office to cover for pyelonephritis. instructed to push fluids. call office with any new or worsening symptoms. ICD-9 : 789.00 ICD-10 : R10.9 01/07/2019 Appointment: aPttie Sotomayor [address] [place] [address] ACUTE ILLNESS 01/07/2019 Visit Diagnosis Plan: Low back pain Discussion: Stat C T of abdomen/pelvis now ICD-9 : 724.2 ICD-10 : M54.5 12/24/2018 Appointment: Belia Reid WPtel: [address] [place], [place] [phone] FOLLOW UP 12/24/2018 Visit Diagnosis Plan: Migraine, [...] : M79.7 11/20/2018 Appointment: Belia Reid WPtel: [address] [place] [address] ACUTE ILLNESS 11/20/2018 Patient Education: baclofen- [employer] Coupon [id number] https://www.Selleration.S[employer] Universe/samplemd/resources/getResource/61/5b3738d0-ny4b-52fv-93 Completed 11/20/2018 Visit Diagnosis Plan: Migraine, unspecif ied, intractable, without status migrainosus Discussion: toradol/phenergan given in o ffice (60 mg toradol, 12.5 mg phenergan). instructed to call if no improvement or worsening. instructed to follow up with doctor of podiatry since headaches are occurring more frequently to make sure vision is not the cause. ICD-9 : 346.91 ICD-10 : G43.919 11/04/2018 Visit Diagnosis Plan: Acute sinusitis, unspecified Dis cussion: zithromax prescribed to cover for sinus infection due to length of symptoms and clinincal s/s. ICD-9 : 461.9 ICD-10 : J01.90 11/04/2018 Appointment: Pattie Sotomayor [address] [place], [place] [id number] ACUTE ILLNESS 11/04/2018 App[facility]ment[facility] [phone] [facility] [facility] 09/24/2018 Visit Diagnosis Plan: Type 2 diabetes me llitus with diabetic neuropathy, unspecified Discussion: Retry gabapentin 300mg po q HS ICD-9 : 250.60 ICD-10 : E11.40 09/18/2018 Visit Diagnosis Plan: Vitamin D deficiency, unspecifie d Discussion: Increase Vitamin D3 to 10,000 u daily ICD-9 : 268.9 ICD-10 : E55.9 09/18/2018 Visit Diagnosis Plan: Encounter for [facility] adult medical examination without abnormal findings Discussion: [...] I10 09/18/2018 Appointment: Bel[facility] [phone] [facility] [facility] Well Visit 09/18/2018 Patient Education: gabapentin- [employer] Coupon [phone] https://www.Selleration.[employer] Universe/samplemd/resources/getResource/61/5m17fs18-1vo2-6pop-c4 Completed 09/18/2018 Visit Diagnosis Plan: Pain in [...] : M54.89 09/08/2018 Appointment: Pattie Sotomayor [address] [place], [place] [id number] ACUTE ILLNESS 09/08/2018 Patient Education: prednisone- [employer] Coupon [phone] [email or web address] Completed 09/08/2018 Visit Diagnosis Plan: Pruritus, unspecified [...] : E10.9 08/20/2018 Appointment: Belia Reid WPtel: [address] [place] [address] ACUTE ILLNESS 08/20/2018 Patient Education: Lexapro- [employer] Coupon [id number] Completed 08/20/2018 Patient Education: hydroxyzine HCl- [employer] Coupon [phone] Completed 08/20/2018 Care Plan: MAMMOGRAM SCREENING LOINC : 2 6347-5 Pending 08/20/2018 Visit Diagnosis Plan: Paroxysmal atrial fibrillation D iscussion: Discuss eliquis need with cardiology at [facility] due to cost ICD-9 : 427.31 ICD-10 : I48.0 06/19/2018 Visit Diagnosis Plan: Hypotension due to drugs Discuss ion: Discussed decreasing cardizem dose due to low BP and edema but sees cardiology next week Follow Up: 1 months ICD-9 : 458.8 ICD-10 : I95.2 06/19/2018 Appointment: Belia Reid WPtel: [facility] [address] FOLLOW UP 06/19/2018 Visit Diagnosis Plan: [...] R61 06/09/2018 Appointment: Belia Reid WPtel: [address] [place], [place] [phone] FOLLOW UP 06/09/2018 Care Plan: CHEST X-RAY 2VW FRONTAL&LATL LOINC : 61082-6 Pending 05/26/2018 Visit Diagnosis Plan: Supraventricular tachycardia [...] R53.1 05/21/2018 Appointment: Belia Reid WPtel: [address] [place], [place] [phone] [facility] Follow Up 05/21/2018 Visit Diagnosis Plan: Cervical disc diso rder with radiculopathy, unspecified cervical region Discussion: Scheduled for surgery on 06/02 10/[address] Faulkner ICD-9 : 722.0 ICD-10 : M50.10 04/16/2018 Appointment: Belia Reid WPtel: [address] [place], [place] [phone] Hospital Follow Up 04/16/2018 Visit Diagnosis Plan: [...] ICD-10 : G43.919 04/01/2018 Appointment: Pattie Sotomayor [address] [place] [address] ACUTE ILLNESS 04/01/2018 Appointment: Belia Reid WPtel: [address] [place] [address] 03/17/2018 Visit Diagnosis Plan: Chronic obstructiv e [...] : E11.65 03/06/2018 Appointment: Belia Reid WPtel: [address] [place] [address] Hospital Follow Up 03/06/2018 Visit Diagnosis Plan: Cervicalgia Discussion: spoke wi th dr. reid about patient. increased gabapentin to bid and started on celebrex bid. tramadrol rx written out to take prn. keep scheduled appt next week for myelogram. ICD-9 : 723.1 ICD-10 : M54.2 02/05/2018 Appointment: Pattie Sotomayor [address] [place] [address] ACUTE ILLNESS 02/05/2018 Care Plan: X-RAY EXAM NECK SPINE 4/5VWS cervical LOINC : 20011-1 Pending 01/21/2018 Visit Diagnosis Plan: Candidiasis of [...] ICD-10 : M54.2 01/20/2018 Appointment: Pattie Sotomayor [address] [place], [place] [phone] ACUTE ILLNESS 01/20/2018 Visit Diagnosis Plan: Pain in thoracic spine Discussio n: Proceed with CT scan of thoracic spine Will likely need PT ICD-9 : 724.1 ICD-10 : M54.6 12/25/2017 Appointment: Belia Reid WPtel: [address] [place], [place] [phone] FOLLOW UP 12/25/2017 Care Plan: CT THORAX W/O DYE LOINC : 473 66-0 Pending 12/25/2017 Visit Diagnosis Plan: Pain in thoracic spine Discussio n: Stretches Alternated heat/ice Topical aspercreme with lidocaine Flexeril Recheck 1 week Flu and Pneumovax given ICD-9 : 724.1 ICD-10 : M54.6 12/17/2017 Appointment: Belia Reid WPtel: [address] [place], [place] [phone] ACUTE ILLNESS 12/17/2017 Patient Education: [...] J44.1 10/30/2017 Appointment: Belia Reid WPtel: [address] [place], [place] [phone] FOLLOW UP 10/30/2017 Patient Education: Patient Medication Summary Completed 10/30/2017 Visit Diagnosis Plan: Chronic obstructiv e pulmonary disease with acute lower respiratory infection Discussion: Continue SVNs with albuterol q4hrs Add Trelagy 1 inhalation daily Finish steroids Increase water intake Follow Up: 1 weeks ICD-9 : 496 ICD-10 : J44.0 10/23/2017 Appointment: Belia Reidtel: [address] [place], [place] [phone] [place] WORK IN 10/23/2017 Patient Education: Patient Medication Summary Completed 10/23/2017 Appointment: Belia Reidtel: [address] [place], [place] [phone] NO SHOW 10/16/2017 Visit Diagnosis Plan: Confusional [...] ICD-10 : E11.65 09/17/2017 Appointment: Belia Reidtel: [address] [place], [place] [phone] Annual Well Visit 09/17/2017 Patient Education: Patient Medication Summary Completed 09/17/2017 Appointment: Belia Reid WPtel: [address] [place], [place] [phone] US INJECTION 08/26/2017 Patient Education: Patient Medication Summary Completed 08/26/2017 Appointment: Belia Reidtel: [address] [place], [place] [phone] [place] CANCELED 07/31/2017 Visit Diagnosis Plan: Encounter [...] : J20.9 07/19/2017 Appointment: Pattie Sotomayor [facility] [place] [phone] ACUTE ILLNESS 07/19/2017 Patient Education: Patient Medication Summary Completed 07/19/2017 Care Plan: MAMMOGRAM SCREENING LOINC : 2 6347-5 Pending 07/19/2017 Patient Education: Patient Medication Summary Completed 06/05/2017 Care Plan: LIPID PANEL LOINC : 23321-2 Pending 06/05/2017 Care Plan: A1C HPLC LOINC : 95837-9 Pending 06/05/2017 Visit Diagnosis Plan: Rash and [...] : R21 05/29/2017 Appointment: Pattie Sotomayor [address] [id number] FOLLOW UP 05/29/2017 Patient Education: Patient Medication Summary Completed 05/29/2017 Visit Diagnosis Plan: Tinea corporis Discussion: Diflu can and topical nystatin Follow Up: 2 weeks ICD-9 : 110.5 ICD-10 : B35.4 05/07/2017 Visit Diagnosis Plan: Diarrhea, unspecified Discussion : Diflucan Cholestyramine Recheck 2weeks ICD-9 : 787.91 ICD-10 : R19.7 05/07/2017 Appointment: Belia Reid WPtel: [address] [place], [place] [phone] US FOLLOW UP 05/07/2017 Patient Education: Patient Medication Summary Completed 05/07/2017 Appointment: Belia Reid WPtel: [address] [place], [place] [phone] US RESCHEDULED 04/30/2017 Visit Diagnosis Plan: Chronic obstructiv e pulmonary disease with (acute) exacerbation Discussion: Finish prednisone Continue S VNS with albuterol ICD-9 : 491.21 ICD-10 : J44.1 03/18/2017 Visit Diagnosis Plan: Stridor Discussion: Increase Ati van 0.5mg po to TID routinely for next week then can go back to prn ICD-9 : 786.1 ICD-10 : R06.1 03/18/2017 Appointment: Belia Reid WPtel: [address] [place] [address] ER Follow UP 03/18/2017 Patient Education: Patient [...] ICD-10 : E11.65 02/27/2017 Appointment: Belia Reidtel: [address] [place], [place] [phone] [place] FOLLOW UP 02/27/2017 Patient Education: Patient [...] : E11.65 02/22/2017 Appointment: [facility] [address] [facility] [facility] 02/22/2017 Patient Education: Patient Medication [...] ICD-10 : J18.9 01/23/2017 Appointment: Belia Reidl: [facility] [facility] Follow UP 01/23/2017 Patient Education: Patient Medication Summary Completed 01/23/2017 Appointment: Patt[facility]otomayor [address] [facility] CANCELED 01/17/2017 Appointment: Pattie Sotomayor [address] [place], [place] [address] Annual Well Visit 01/14/2017 Visit Diagnosis Plan: Type 2 diabetes mellitus with hy perglycemia Discussion: Check CMP, HbA1C Flu shot and Prevnar 13 given Follow Up: 3 months ICD-9 : 250.02 ICD-10 : E11.65 12/20/2016 Visit Diagnosis Plan: Localized edema Discussion: Low Na diet Compression socks/Elevate feet ICD-9 : 782.3 ICD-10 : R60.0 12/20/2016 Appointment: Belia Reid: [address] [facility] FO[facility] 12/20/2016 Patient Education: Patient Medication Summary Completed 12/20/2016 Patient Education: Patient Medication Summary Completed 10/10/2016 Visit Plan: Xrays of cervical, thoracic and lumbar spine at ER[facility] for Mobic (stop NSAIDS except Tylenol) and Flexeril UA sent for C&S Using SVN Call in 2-3 days if pain not improved or any worsening 10/08/2016 Appointment: Celeste Ferreira WPtel: [address] [facility] ACUTE ILLNESS 10/08/2016 Patient Education: Patient Medication [...] : E11.65 09/19/2016 Appointment: Belia Reid WPtel: [address] [place], [place] [address] 09/18 confirmed`sl FOLLOW UP 09/19/2016 Patient Education: [...] : R10.84 08/20/2016 Appointment: Belia Reid WPtel: [address] [place], [place] [phone] 08/16 confirmed~sl FOLLOW UP 08/20/2016 Patient Education: [...] : 496 ICD-10 : J44.9 06/19/2016 Appointment: eBlia Reid WPtel: [address] [place], [place] [phone] 06/18 confirmed ~ Hospital Follow Up 06/19/2016 [...] Z87.440 06/04/2016 Appointment: Belia Reid WPtel: [address] [place], [place] [phone] 06/01 confirmed~sl FOLLOW UP 06/04/2016 Patient Education: [...] : R06.1 05/02/2016 Appointment: Belia Reid WPtel: [address] [place], [place] [phone] 05/01 confirmed ~ Hospital Follow Up 05/02/2016 [...] N39.0 04/03/2016 Appointment: Belia Reid WPtel: [address] [place], [place] [phone] 04/02 confirmed~ Hospital Follow Up 04/03/2016 Patient Education: Patient Medication Summary Completed 04/03/2016 Visit Plan: Lungs are clear Her symptoms and exam are all upper airway restriction/constriction Can try supportive care Rx as above Follow up PRN 02/29/2016 Appointment: Lidia Hwang [address] [place] [address] ACUTE ILLNESS 02/29/2016 Patient Education: Patient Medication Summary Completed 02/29/2016 Visit Plan: Toradol/Phenergan today for Migraine Change to Clindamycin to cover lactobacillus for UTI Cover with flagyl due to hx of C. Diff 02/02/2016 Appointment: Belia Reid WPtel: [address] [place], [place] [phone] 01/31 confirmed` ACUTE ILLNESS 02/02/2016 Patient Education: Patient Medication Summary Completed 02/02/2016 Visit Plan: Increase neurontin to 300mg q AM and 600mg q PM Discussed neurology re-evaluation Flu shot given Need to check on Pneumonia shot Rx written out for albuterol 01/05/2016 Appointment: Belia Reid WPtel: [address] [place], [place] [phone] 01/03 confirmed ~sl Annual Well Visit 01/05/2016 Patient Education: Patient Medication Summary Completed 01/05/2016 Visit Plan: Cipro Culture urine hydrate Flexeril refilled Alternate heat and ice for back Increase gabapentin to 300mg po BID Notify if worsens 12/05/2015 Appointment: Belia Reid WPtel: [address] [facility] 11/30 confirmed~sl ACUTE ILLNESS 12/05/2015 Patient Education: Patient Medication Summary Completed 12/05/2015 Patient Education: Patient Medication Summary Completed 10/27/2015 Care Plan: [place] : [address]-5 Pending 10/27/2015 Care Plan: A1C HPLC LOINC : 50065-2 Pending 10/27/2015 Visit Plan: Lungs are CTA today and is f eeling improved overall Finish meds as ordered Continue inhalers and neb treatments Discussed migraine treatment options She does not feel she needs anything additional added today Refill of Januvia sent since no samples are available today 10/26/2015 Appointment: Lidia Hwang [address] Hospital Follow Up 10/26/2015 Appointment: Lidia Hwang [address] CANCELED 10/26/2015 Patient Education: Patient Medication Summary Completed 10/26/2015 Patient Education: Januvia - 18+ - KENNETH - No CA [place] Completed 10/26/2015 Visit Plan: Office dip still abnormal Cu lture pending Switch to cipro - stop macrobid Push fluids - avoid caffeine Will call with culture results when available Follow up if worsening 10/05/2015 Appointment: Lidia Hwang [address] ER Follow UP 10/05/2015 Patient Education: Patient Medication Summary Completed 10/05/2015 Visit Plan: Proceed with PT for document ation of ROM and strength of all extremities Proceed with Power Mobility Device Trial of neurontin 300mg q HS--lyrica helped but patient unable to afford Recheck 1month 09/15/2015 Appointment: Belia Reid WPtel: [address] [place], [place] [phone] 09/13 confirmed~sl SPECIAL 09/15/2015 Patient Education: Patient Medication Summary Completed 09/15/2015 Visit Plan: Fille out Loan Discharge Pap erwork for total and permanent disability 08/25/2015 Patient Education: Patient Medication Summary Completed 08/25/2015 Visit Plan: Discussed with Dr Franklin Haywood at CT of head 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 and update if needed 08/24/2015 Appointment: Lidia Hwang [address] [facility] 08/22 confirmed~sl ACUTE ILLNESS 08/24/2015 Patient Education: Patient Medication Summary Completed 08/24/2015 Patient Education: Patient Medication Summary Completed 08/24/2015 Care Plan: US EXAM OF HEAD AND NECK carotid Ultrasound LOIN C : 95933-3 Pending 08/24/2015 Visit Plan: Long discussion about diet A ccuchecks daily Check HbA1C, CMP Change requip to mirapex 07/05/2015 Appointment: Belia Reid WPtel: [address] [place], [place] [phone] 07/03 confirmed ~sl FOLLOW UP 07/05/2015 Patient Education: Patient Medication Summary Completed 07/05/2015 Visit Plan: Add Breo ellipta 100 1 p BID Continue SVNs with duoneb QID 06/06/2015 Appointment: Belia Reid WPtel: [address] [place], [place] [phone] Patient is calling for a ride, then retu rning our call.-sp 06/01 called and patient stated she will know saturday if she can get a ride~sl 06/05 [facility] Follow Up 06/06/2015 Patient Education: Patient [...] not improving 05/23/2015 Appointment: Huong Osborne WPtel: [address] [place] [address] ACUTE ILLNESS 05/23/2015 Appointment: Lidia Hwang [address] [place] [address] ER Follow UP 05/23/2015 Patient Education: Patient Medication Summary Completed 05/23/2015 Visit Plan: Check pancreatic enzymes and US of pancreas as patient can't understand why she has diabetes since has no family history Discussed weight, diet, exercise all play an important role in diabetes and are risk factors as well Continue Januvia and accuchecks daily 05/05/2015 Appointment: Belia Reid WPtel: [address] [place] [address] US FOLLOW UP 05/05/2015 Patient Education: Patient Medication Summary Completed 05/05/2015 Care Plan: US EXAM ABDOM COMPLETE LOINC : 38366-4 Ordered 05/05/2015 Visit Plan: Start Januvia 100mg daily [place] with diflucan and culture urine Accuchecks daily alternating times Recheck 6weeks 03/30/2015 Appointment: Belia Reid WPtel: [address] [place] [address] 03/29 confirmed~lb FOLLOW UP 03/30/2015 Patient Education: Patient Medication Summary Completed 03/30/2015 Appointment: Belia Reid WPtel: [address] [place], [place] [phone] 03/01 needs reschedule due to payment and insurance ~sl FOLLOW UP 03/02/2015 Visit Plan: Patient was just in ER last night so has not filled scripts yet Start Carafate and Flagyl and Cipro Add Hyophen 1 po BID Recheck 1mo 02/03/2015 Appointment: Belia Reid WPtel: [address] [place] [address] [place] 02/02lm ~sl...02/03/15 appt confirmed cn ACUTE I LLNESS 02/03/2015 Patient Education: Patient Medication Summary Completed 02/03/2015 Visit Plan: Warm soaks to vaginal area K elex and Diflucan and observe Zofran to use prn 12/29/2014 Appointment: Belia Reid WPtel: [address] [place], [place] [phone] 12/28 Confirmed ~ ACUTE ILLNESS 12/29/2014 Patient Education: Patient Medication Summary Completed 12/29/2014 Appointment: Huong Osborne WPtel: [address] [place], [place] [phone] FOLLOW UP 09/24/2014 Appointment: Belia Reid WPtel: [address] [place] [address] 09/15 confirmed - FOLLOW UP 09/16/2014 Visit Plan: Increase requip to 2mg po BI D Increase lyrica to 225mg total a day by adding an extra 75mg in AM Recheck in 2weeks Continue to patch left eye while sleeping 09/02/2014 Appointment: Belia Reid WPtel: [address] [place], [place] [phone] 09/01 appt confirmed [facility] Follow Up 09/02 Patient Education: Patient Medication Summary Completed 09/02/2014 Visit Plan: To [facility] for observat ion to R/O CVA 08/25/2014 Appointment: Huong Osborne WPtel: [address] [place], [place] [phone] ACUTE ILLNESS 08/25/2014 Patient Education: Patient Medication Summary Completed 08/25/2014 Referral: Aaron Jonas WPtel: [facility] [address] [place] location Initiated 04/26/2014 Referral: [facility]rinivas[id number] Initiated 04/20/2014 Appointment: Belia Reid WPtel: [address] [place], [place] [phone] ER Follow UP 04/01/2014 Patient Education: Patient Medication Summary Completed 04/01/2014 Care Plan: MYELOGRAPHY NECK SPINE LOINC : 47821-6 Ordered 04/01/2014 Visit Plan: Continue Symbicort 160 at 2p BID Continue SVNs with duoneb at least QID Finish Levaquin Recheck 1mo on lyrica 03/16/2014 Appointment: Belia Reid WPtel: [address] [place], [place] [phone] 03/15 voicemail FOLLOW UP 03/16/2014 Patient Education: Patient Medication Summary Completed 03/16/2014 Visit Plan: Restart SVNs with duoneb QID Repeat prednisone Levaquin Continue symbicort Keep lyrica at same dose Recheck 1week 03/09/2014 Appointment: Belia Reid WPtel: [address] [place], [place] [phone] FOLLOW UP 03/09/2014 Patient Education: Patient Medication Summary Completed 03/09/2014 Appointment: Belia Reid WPtel: [address] [place] [phone] 03/03 showed up 15 minutes late for appt -- put her on Huong's side for 10:45am FORGIVEN PER DR FOLLOW UP 03/03/2014 Appointment: Huong Osborne WPtel: [address] [place], [place] [phone] [place] FOLLOW UP 03/03/2014 Patient Education: Patient Medication Summary Completed 03/03/2014 Appointment: Huong Osborne WPtel: [address] [place], [place] [phone] ER Follow UP 03/01/2014 Patient Education: Patient Medication Summary Completed 03/01/2014 Visit Plan: Add carafate for this next m onth Increase lyrica to 150mg q HS 02/09/2014 Appointment: Belia Reid WPtel: [address] [place], [place] [phone] Hospital Follow Up 02/09/2014 Patient Education: Patient Medication Summary Completed 02/09/2014 Visit Plan: Increase omeprazole back to 40mg po BID Use requip in AM and add lyrica 75mg q HS Recheck 1mo 12/23/2013 Appointment: Belia Reid WPtel: [address] [place], [place] [phone] FOLLOW UP 12/23/2013 Patient Education: Patient Medication Summary Completed 12/23/2013 Patient Education: Patient Medication Summary Completed 12/04/2013 Appointment: Belia Reid WPtel: [address] [place], [place] [phone] UA 10/30/2013 Patient Education: Patient Medication Summary Completed 10/30/2013 Appointment: Belia Reid WPtel: [address] [place], [place] [phone] UA 10/21/2013 Patient Education: Patient Medication Summary Completed 10/21/2013 Visit Plan: Cryotherapy as above TAC and hydroxyzine to use prn to itching spots and itching SKs Add Advair HFA 115/21 1 p BID 10/05/2013 Appointment: Belia Reid WPtel: [address] [place], [place] [phone] 10/01 pt called and confirmed ACUTE ILLNESS Patient Education: Patient Medication Summary Completed 10/05/2013 Appointment: Belia Reid WPtel: [address] [place], [place] [phone] will pay copay and part of past balance FOLLOW U P 08/04/2013 Patient Education: Patient Medication Summary Completed 08/04/2013 Appointment: Belia Reid WPtel: [address] [place], [place] [phone] [place] INJECTION 07/13/2013 Patient Education: Patient Medication Summary Completed 07/13/2013 Appointment: Huong Osborne WPtel: [address] [place], [place] [phone] ACUTE ILLNESS 07/03/2013 Patient Education: Patient Medication Summary Completed 07/03/2013 Visit Plan: Cipro and culture urine 05/27/2013 Appointment: Huong Osborne WPtel: [address] [place], [place] [phone] 05/26 confirmed appt and notified that balance and copyholder y is due at appt time FOLLOW UP 05/27/2013 Patient Education: Patient Medication Summary Completed 05/27/2013 Appointment: Belia Reid WPtel: [address] [place] [phone] [place] UA 05/25/2013 Patient Education: Patient Medication Summary Completed 05/25/2013 Appointment: Belia Reid WPtel: [address] [place] [phone] US INJECTION 05/04/2013 Patient Education: Patient Medication Summary Completed 05/04/2013 Appointment: Belia Reid WPtel: [address] [place], [place] [phone] [place] INJECTION 04/17/2013 Patient Education: Patient Medication Summary Completed 04/17/2013 Appointment: Belia Reid WPtel: [address] [place], [place] [phone] [place] INJECTION 04/15/2013 Appointment: Belia Reid WPtel: [address] [place] [phone] 04/02 vm FOLLOW UP 04/06/2013 Patient Education: Patient Medication Summary Completed 04/06/2013 Visit Plan: Obtain lab results including UA from [facility] 11/10/2012 Appointment: Belia Reid WPtel: [address] [place], [place] [phone] [place] ER Follow UP 11/10/2012 Patient Education: Patient Medication Summary Completed 11/10/2012 Appointment: Belia Reid WPtel: [address] [place], [place] [phone] 10/30/12 patient canceled appt due to fin ances. Offered to work something out, patient declined-LB FOLLOW UP 11/05/2012 Visit Plan: Continue Bystolic at current dose Pt has fwup with Neurology on September 16 09/02/2012 Appointment: Belia Reid WPtel: [address] [place] [address] FOLLOW UP 09/02/2012 Patient Education: Patient Medication Summary Completed 09/02/2012 Visit Plan: Continue bystolic at 5mg chris ly Sees Neurology tomorrow Use oxygen at bedtime 08/04/2012 Appointment: Belia Reid WPtel: [address] [place] [address] FOLLOW UP 08/04/2012 Patient Education: Patient Medication Summary Completed 08/04/2012 Appointment: Belia Reid WPtel: [address] [place] [address] Hospital fwup for 07/21/12. merged appointments FOLLOW UP 07/24/2012 Visit Plan: Start Bystolic 5mg daily for tachycardia Fwup with neurology for further workup Overnight O2 sat 07/21/2012 Appointment: Belia Reid WPtel: [address] [place] [address] Hospital Follow Up 07/21/2012 Patient Education: Patient Medication Summary Completed 07/21/2012 Visit Plan: SVN with Albuterol QID Add A velox 400mg daily Notify if worsens or persists 07/02/2012 Appointment: Belia Reid WPtel: [address] [place] [address] ACUTE ILLNESS 07/02/2012 Patient Education: Patient Medication Summary Completed 07/02/2012 Appointment: Belia Reid WPtel: [address] [place], [place] [phone] INJECTION 06/25/2012 Patient Education: Patient Medication Summary Completed 06/25/2012 Appointment: Belia Reid WPtel: [address] [place] [id number] FOLLOW UP 06/24/2012 Patient Education: Patient Medication Summary Completed 06/24/2012 Appointment: Belia Reid WPtel: [address] [place] [phone] 05/19 left message FOLLOW UP 05/20/2012 Patient [...] po TID 05/08/2012 Appointment: Belia Reid WPtel: [address] [place] [address] ACUTE ILLNESS 05/08/2012 Patient Education: Patient Medication Summary Completed 05/08/2012 Visit Plan: Continue current meds Contin ue lower dose on pain meds and Diazepam Still waiting on paperwork for botox for Migraines Will restart Neurontin at 600mg po q HS Pt going to stop Depakote due to can't afford 04/22/2012 Appointment: Belia Reid WPtel: [address] [place] [phone] 04/21 Hospital Follow Up 04/22/2012 Patient Education: Patient Medication Summary Completed 04/22/2012 Visit Plan: Injection to shoulder as abo ve Continue current meds Has appointment with neurology on HAs in 02/13/2012 Appointment: Belia Reid WPtel: [address] [place], [place] [phone] Pt does not have $10 copay at [facility] t time - will bring it in next week. Kianna iqbal'ed this. - [place] FOLLOW UP 02/13/2012 Patient Education: Patient Medication Summary Completed 02/13/2012 Visit Plan: Proceed with headache specia list Change nexium to Protonix Phenergan to use prn Sumatriptan to use prn Pt still on Inderal 01/28/2012 Appointment: Belia Reid WPtel: [address] [place] [address] ER Follow UP 01/28/2012 Patient Education: Patient [...] for sleep 12/26/2011 Appointment: Belia Reid WPtel: [address] [place] [address] 12/24- appt. confirmed FOLLOW UP 2 Patient Education: Patient Medication Summary Completed 12/26/2011 Appointment: Belia Reid WPtel: [address] [place] [address] [place] FOLLOW UP 11/14/2011 Patient Education: Patient Medication Summary Completed 11/14/2011 Appointment: Belia Reid WPtel: [address] [place] [phone] [place] FOLLOW UP 09/12/2011 Patient Education: Patient Medication Summary Completed 09/12/2011 Visit Plan: Supportive care Decrease Liseth catalino to 50mg q HS Decrease AM dose of Valium to 5mg q HS Use Endocet sparingly 08/15/2011 Appointment: Belia Reid WPtel: [address] [place] [address] ER Follow UP 08/15/2011 Patient Education: Patient Medication Summary Completed 08/15/2011 Appointment: Belia Reid WPtel: [address] [place] [address] [place] Spoke directly to patient yesterday and confirmed the appoin tment. cn ACUTE ILLNESS 08/09/2011 Patient Education: Patient Medication Summary Completed 08/09/2011 Appointment: Belia Reid WPtel: [address] [place] [address] Hospital Follow Up 07/03/2011 Patient Education: Patient Medication Summary Completed 07/03/2011 Appointment: Belia Reid WPtel: [address] [place] [address] FOLLOW UP 06/04/2011 Patient Education: Patient Medication Summary Completed 06/04/2011 Visit Plan: Pt. wants "allergy shot" but in fact wants steroid shot. Will take a break from "generic Zyrtec they are getting from [facility]" and try Singulair for 2 weeks. 05/03/2011 Appointment: Iraida Jones WPtel: [address] [place] [address] ACUTE ILLNESS 05/03/2011 Patient Education: Patient Medication Summary Completed 05/03/2011 Visit Plan: Neurontin 400mg q HS for 1we ek then 800mg q HS Decrease requip to 1mg q HS for 2wks then stop Fwup 2mos 04/05/2011 Appointment: Belia Reid WPtel: [address] [place] [address] FOLLOW UP 04/05/2011 Patient Education: Patient Medication Summary Completed 04/05/2011 Visit Plan: Trial of neurontin in 2wks C ontinue current meds for stomach Pt has procedure with Dr. Ortiz next week for stone removal 03/08/2011 Appointment: Belia Reid WPtel: [address] [place] [address] Hospital Follow Up 03/08/2011 Patient Education: Patient Medication Summary Completed 03/08/2011 Appointment: Belia Reid WPtel: [address] [place] [address] FOLLOW UP 02/19/2011 Visit Plan: reports increased [...] with Flagyl 01/24/2011 Appointment: Iraida Jones WPtel: [address] [place] [address] ACUTE ILLNESS 01/24/2011 Patient Education: Patient Medication Summary Completed 01/24/2011 Appointment: Belia Reid WPtel: [address] [place] [address] [place] FOLLOW UP 01/02/2011 Patient Education: Patient Medication Summary Completed 01/02/2011 Appointment: Belia Reid WPtel: [address] [place] [address] FOLLOW UP 12/12/2010 Appointment: Belia Reid WPtel: [address] [place], [place] [id number] ACUTE ILLNESS 12/07/2010 Patient Education: Patient Medication Summary Completed 12/07/2010 Visit Plan: Increase Buspar to 10mg po B ID 11/16/2010 Appointment: Belia Reid WPtel: [address] [place], [place] [phone] [place] FOLLOW UP 11/16/2010 Patient Education: Patient Medication Summary Completed 11/16/2010 Appointment: Iraida Jones WPtel: [address] [place], [place] [phone] ER Follow UP 11/02/2010 Patient Education: Patient Medication Summary Completed 11/02/2010 Visit Plan: Depo-Medrol/Kenalog given fo r allergies Add BuSpar for anxiety Oxycodone one p.o. q.i.d. for number 120 refilled 10/18/2010 Appointment: Belia Reid WPtel: [address] [place], [place] [phone] [place] FOLLOW UP 10/18/2010 Patient Education: Patient Medication Summary Completed 10/18/2010 Visit Plan: Continue current meds Discus sed epidurals for back vs PT--will proceed with epidurals to thoracolumbar region to see if helps with pain 09/19/2010 Appointment: Belia Reid WPtel: [address] [place], [place] [phone] FOLLOW UP 09/19/2010 Patient Education: Patient Medication Summary Completed 09/19/2010 Visit Plan: DC MS contin Check CT scan t horacic spine Fwup pending above results 09/06/2010 Appointment: Belia Reid WPtel: [address] [place], [place] [phone] FOLLOW UP 09/06/2010 Patient Education: Patient Medication Summary Completed 09/06/2010 Visit Plan: Continue current meds Restar t MS contin 15mg po BID and use oxycodone prn Use daily senokot-s 2 po BID 08/10/2010 Appointment: Belia Reid WPtel: [address] [place], [place] [phone] FOLLOW UP 08/10/2010 Patient Education: Patient Medication Summary Completed 08/10/2010 Visit Plan: Depomedrol/Kenalog given Pt sees ENT later this month Cont current meds Mammo scheduled 05/11/2010 Appointment: Belia Reid WPtel: [address] [place], [place] [phone] FOLLOW UP 05/11/2010 Patient Education: Patient Medication Summary Completed 05/11/2010 Appointment: Belia Reid WPtel: [address] [place], [place] [phone] UA 05/04/2010 Patient Education: Patient Medication Summary Completed 05/04/2010 Visit Plan: Pt sent to lab for UA 04/28/2010 Appointment: Belia Reid WPtel: [address] [place], [place] [phone] UA 04/28/2010 Patient Education: Patient Medication Summary Completed 04/28/2010 Visit Plan: Check CT angiogram of chest Restart Advair Use proair prn Cont current meds Fwup with Card as schedulec 04/06/2010 Appointment: Belia Reidtel: [address] [place] [address] Follow Up 04/06/2010 Patient Education: Patient Medication Summary Completed 04/06/2010 Visit Plan: Paperwork filled out for pow erchair Depomedrol/kenalog given Pt sees ENT in 2wks to assess nasal obstruction problems 02/09/2010 Appointment: Belia Reid WPtel: [address] [place] [address] ESTABLISHED PATIENT 02/09/2010 Patient Education: Patient Medication Summary Completed 02/09/2010 Visit Plan: Change Elavil to Trazadone 1 50mg q HS Diflucan and nystatin for tinea cruris 01/05/2010 Appointment: Belia Reid WPtel: [address] [place] [address] FOLLOW UP 01/05/2010 Patient Education: Patient Medication Summary Completed 01/05/2010 Appointment: Belia Reidtel: [address] [place] [address] FOLLOW UP 12/07/2009 Patient Education: Patient Medication Summary Completed 12/07/2009 Appointment: Belia Reid WPtel: [address] [place] [address] FOLLOW UP 11/22/2009 Visit Plan: Cont current meds and await MRI results from Dr. Meadows's office and his final recommendations Will need to follow-up at later date on deviated septum 11/08/2009 Appointment: Belia Reid WPtel: [address] [place], [place] [phone] FOLLOW UP 11/08/2009 Patient Education: Patient Medication Summary Completed 11/08/2009 Visit Plan: Cont PT/OT See Neurosurgery Cont Tortoise shell brace 10/24/2009 Appointment: Belia Reid WPtel: [address] [place] [address] FOLLOW UP 10/24/2009 Patient Education: Patient Medication Summary Completed 10/24/2009 Appointment: Belia Reid WPtel: [address] [place] [address] Hospital Follow Up 10/17/2009 Appointment: Belia Reid WPtel: [address] [place] [address] ACUTE ILLNESS 07/25/2009 Patient Education: Patient Medication Summary Completed 07/25/2009 Appointment: Belia Reid WPtel: [address] [place] [address] FOLLOW UP 05/26/2009 Patient Education: Patient Medication Summary Completed 05/26/2009 Referral: Chino Balderas WPtel: [address] Referral Initiated Referral: Merry Vale WPtel: [facility] [id number] Vale will review referral and book appointment Completed Referral: Francisco Javier Yoder WPtel: [address] [id number] Patient needs EGD insurance will not inc rease a medication unless this procedure results show a need Completed Referral: Francisco Javier Yoder WPtel: [address] [id number] [place] Referral Historical Reference Referral: Francisco Javier Yoder WPtel: [address] [place] [address] [place] Referral Initiated Instructions Comment . 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 Long discussion [...] as well Finally agrees to proceed with [facility] specialist and consider options such as botox [...] from "generic Zyrtec they are getting from [employer]" and try Singulair for 2 weeks. . [...]
--- OUTSIDE RECORDS SUMMARY | 2019-06-23 18:03 | XMS REPORT | CCD ---
Author Author Diana Reid D.O. 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 Role Phone Belia Reid D.O., PP Unavailable CCM Unavailable Summary Purpose Interface Exchange Insurance Providers Payer name Policy type / Coverage type Covered libertarian ID Effective Begin Date Effective End Date [employer] MEDICARE Medicare Part B [id number] 2019 Unknown Family History Family History data not found Social History Social History Element Codes Description Effective Dates Tobacco history SNOMED CT: 910329092 Nonsmoker 09/13/2010 Allergies, Adverse Reactions, Alerts Substance Reaction Codes Entered Date Inactivated Date Status Eggs reaction [id number] 09/15/2015 No Inactive Date Active _ Unknown [...] Instructions hydroxyzine HCl 25 mg tablet RxNorm: 129998 1 Tablet(s) Oral QPM for itching/aniety 05/13/2019 07/28/2019 Active gabapentin 600 mg tablet RxNorm: 119578 1 Tablet(s) Oral QD 020 06/05/2019 Active Singulair 10 mg tablet RxNorm: 100690 1 Tablet(s) Oral QPM 05/06/19 20 05/12/2019 Inactive Valium 5 mg tablet RxNorm: 163613 1 Tablet(s) Oral QPM for stri joao/muscle spasm 04/29/2019 05/29/2019 Active baclofen 10 mg tablet RxNorm: 426821 1 Tablet(s) Oral QPM for s pasm/neck pain 04/24/2019 05/23/2019 Active baclofen 10 mg tablet RxNorm: 189024 1 Tablet(s) Oral QPM for s pasm/neck pain 04/24/2019 04/23/2019 Inactive Novolin N NPH U-100 Insulin isophane 100 unit/mL subcu taneous susp RxNorm: 696107 23 Unit(s) Subcutaneous two times a day 04/20/2019 No Stop Date A ctive cyclobenzaprine 5 mg tablet RxNorm: 256243 1 Tablet(s) Oral three times a day as needed 04/16/2019 04/23/2019 Inactive hydroxyzine HCl 25 mg tablet RxNorm: 352511 1 Tablet(s) Oral three times a day for itching/aniety 04/08/2019 05/12/2019 Inactive gabapentin 600 mg tablet RxNorm: 973695 1 Tablet(s) Oral two ti mes a day 04/08/2019 05/05/2019 Inactive gabapentin 600 mg tablet RxNorm: 069749 1 Tablet(s) Oral two ti mes a day 04/08/2019 04/07/2019 Inactive Novolin N NPH U-100 Insulin isophane 100 unit/mL subcu taneous susp RxNorm: 904177 10 Unit(s) Subcutaneous two times a day 03/03/2019 04/19/2019 I nactive gabapentin 300 mg capsule RxNorm: 981445 1 Capsule(s) O ral every night at bedtime for neuropathy 02/26/2019 04/07/2019 Inactive gabapentin 300 mg capsule RxNorm: 571609 1 Capsule(s) O ral every night at bedtime for neuropathy 02/20/2019 02/25/2019 Inactive pramipexole 1 mg tablet RxNorm: 815469 1 Tablet(s) Oral QPM FOR RESTLESS LEGS (REPLACES REQUIP) 02/12/2019 02/07/2020 Active buspirone 5 mg tablet RxNorm: 019936 TAKE 1 TABLET THREE TIMES MILDRED Y 02/12/2019 05/12/2019 Inactive Lexapro 10 mg tablet RxNorm: 338086 TAKE 1 TABLET EVERY DAY FOR MOO D 01/31/2019 No Stop Date Active Ativan 0.5 mg tablet RxNorm: 506606 TAKE 1 TABLET BY MO UT THREE TIMES DAILY NEEDED FOR ANXIETY 01/26/2019 04/28/2019 Inactive Ativan 0.5 mg tablet RxNorm: 240794 TAKE 1 TABLET BY MO UTH THREE TIMES DAILY NEEDED FOR ANXIETY 01/05/2019 01/05/2019 Inactive Levaquin 500 mg tablet RxNorm: 057967 1 Tablet(s) Oral QD 12/25/2018 12/24/2018 Inactive Levaquin 500 mg tablet RxNorm: 253607 1 Tablet(s) Oral QD 12/25/2018 01/04/2019 Inactive baclofen 10 mg tablet RxNorm: 769908 1 Tablet(s) Oral three maico es a day 11/20/2018 01/19/2019 Inactive Ativan 0.5 mg tablet RxNorm: 609025 TAKE 1 TABLET BY [facility] THREE TIMES DAILY NEEDED FOR ANXIETY 11/20/2018 01/04/2019 Inactive gabapentin 300 mg capsule RxNorm: 714281 1 Capsule(s) O ral every night at bedtime for neuropathy 11/20/2018 12/20/2018 Inactive Lexapro 10 mg tablet RxNorm: 129338 1 Tablet(s) PO QD for mood 07/201801/30/2019 Inactive Zithromax Z-Lj 250 mg tablet RxNorm: 535645 Tablet(s) PO take as directed 11/04/2018 11/19/2018 Inactive Insulin Syringe 1 mL 29 gauge x 1/2" RxNorm: 2 s yringes daily with insulin Dx: E11.65 10/08/2018 No Stop Date Active gabapentin 300 mg capsule RxNorm: 759318 1 Capsule(s) PO QHS fo r neuropathy 09/18/2018 10/17/2018 Inactive cyclobenzaprine 5 mg tablet RxNorm: 407365 1 Tablet(s) PO TID a s needed 09/09/2018 09/08/2018 Inactive cyclobenzaprine 5 mg tablet RxNorm: 942651 1 Tablet(s) PO TID a s needed 09/09/2018 10/08/2018 Inactive prednisone 20 mg tablet RxNorm: 155622 1 Tablet(s) PO QD 09/08/2018 0 09/12/2018 Inactive Lantus Solostar U-100 Insulin 100 unit/mL (3 mL) subcu taneous pen RxNorm: 888201 55 Unit(s) SQ QAM 08/28/2018 11/03/2018 Inactive hydroxyzine HCl 25 mg tablet RxNorm: 234741 1 Tablet(s) PO QHS for itching 08/20/2018 05/12/2019 Inactive Lexapro 10 mg tablet RxNorm: 893719 1 Tablet(s) PO QD for mood 08/0210/18/2018 Inactive sumatriptan 100 mg tablet RxNorm: 872531 1 Tablet(s) PO at headache onset. May repeat 1 in two hours if headache remains. Max of 2 per 24 hours 04/02/2018 05/20/2018 Inactive Diflucan 150 mg tablet RxNorm: 596366 1 Tablet(s) PO QD 03/18/2018 Inactive Diflucan 150 mg tablet RxNorm: 627797 1 Tablet(s) PO QD 03/18/2018 Inactive Flagyl 500 mg tablet RxNorm: 003731 1 Tablet(s) PO TID 03/17/2018 Inactive Levaquin 500 mg tablet RxNorm: 769405 1 Tablet(s) PO QD 03/17/2018 Inactive Levaquin 500 mg tablet RxNorm: 863195 1 Tablet(s) PO QD 03/17/2018 Inactive Flagyl 500 mg tablet RxNorm: 816304 1 Tablet(s) PO TID 03/17/2018 Inactive ketoconazole 200 mg tablet RxNorm: 249463 1 Tablet(s) PO QD 019 03/19/2018 Inactive Celebrex 200 mg capsule RxNorm: 575183 1 Capsule(s) PO BID 02/06/20 18 05/20/2018 Inactive tramadol 50 mg tablet RxNorm: 245647 1 Tablet(s) PO TID as needed 1 04/08/2017 05/20/2018 Inactive gabapentin 300 mg capsule RxNorm: 604537 1 Capsule(s) PO BID 201705/20/2018 Inactive Diflucan 150 mg tablet RxNorm: 980358 1 Tablet(s) PO QD 01/20/2018 Inactive pramipexole 1 mg tablet RxNorm: 061630 1 Tablet(s) PO Q PM FOR RESTLESS LEGS (REPLACES REQUIP) 01/08/2018 02/11/2019 Inactive cyclobenzaprine 10 mg tablet RxNorm: 554451 1 Tablet(s) PO TID as needed for muscle spasm 12/17/2017 05/20/2018 Inactive pramipexole 1 mg tablet RxNorm: 422870 TAKE 1 TABLET BY MOUTH ONCE DAILY IN THE EVENING FOR RESTLESS LEGS (REPLACES REQUIP) 12/04/2017 01/05/2018 Inac tive Amaryl 4 mg tablet RxNorm: 074502 1 Tablet(s) PO BID replaces 2mg 0 11/05/2017 12/16/2017 Inactive Singulair 10 mg tablet RxNorm: 903271 1 Tablet(s) PO QHS for al lergies/lungs 10/30/2017 12/16/2017 Inactive Diflucan 100 mg tablet RxNorm: 162780 1 Tablet(s) PO QD 10/23/2017 Inactive Ativan 0.5 mg tablet RxNorm: 645133 TAKE 1 TABLET BY MOUTH THRE E TIMES DAILY 08/30/2017 11/20/2018 Inactive buspirone 5 mg tablet RxNorm: 982128 1 Tablet(s) PO TID 07/11/2017 Inactive propranolol 60 mg tablet RxNorm: 269602 1 Tablet(s) PO BID repl aces 40mg dose 06/26/2017 12/16/2017 Inactive Amaryl 4 mg tablet RxNorm: 652406 1 Tablet(s) PO BID replaces 2mg 0 06/12/2017 11/05/2017 Inactive omeprazole 40 mg capsule,delayed release RxNorm: 510140 1 Capsule(s) PO BID TAKE ONE CAPSULE BY MOUTH TWICE DAILY 05/30/2017 11/25/2017 Inactive pramipexole 1 mg tablet RxNorm: 484221 1 Tablet(s) PO Q PM for restless legs--replaces requip 05/30/2017 11/25/2017 Inactive amitriptyline 50 mg tablet RxNorm: 939467 1 Tablet(s) PO QHS 201709/16/2017 Inactive Diflucan 100 mg tablet RxNorm: 773533 1 Tablet(s) PO BID 05/07/2017 0 05/20/2017 Inactive nystatin (bulk) 100 million unit powder RxNorm: Application TO P BID 05/07/2017 05/20/2018 Inactive cholestyramine (with sugar) 4 gram oral powder RxNorm: 886269 1 Unit Dose PO QD 05/07/2017 01/20/2018 Inactive Ativan 0.5 mg tablet RxNorm: 832755 TAKE ONE TABLET BY MOUTH TH REE TIMES DAILY 05/01/2017 09/02/2017 Inactive Trulicity 1.5 mg/0.5 mL subcutaneous pen injector RxNorm: 15 95175 1 Unit Dose SQ WEEKLY 02/22/2017 03/23/2017 Inactive doxycycline hyclate 100 mg capsule RxNorm: 0725421 1 Capsule(s) PO BID 01/23/2017 02/05/2017 Inactive Amaryl 4 mg tablet RxNorm: 153547 1 Tablet(s) PO BID replaces 2mg 1 03/25/2016 05/22/2017 Inactive magnesium oxide 400 mg capsule RxNorm: 621637 1 Capsule(s) PO QD 07/18/2017 Inactive Ativan 0.5 mg tablet RxNorm: 455700 TAKE ONE TABLET BY MOUTH TH REE TIMES DAILY 01/17/2017 05/01/2017 Inactive Amaryl 2 mg tablet RxNorm: 644691 1 Tablet(s) PO BID 12/27/201601/22 Inactive Amaryl 2 mg tablet RxNorm: 824488 1 Tablet(s) PO BID 12/26/201612/26 Inactive Ativan 0.5 mg tablet RxNorm: 636196 TAKE ONE TABLET BY MOUTH TH REE TIMES DAILY 12/05/2016 01/18/2017 Inactive pramipexole 1 mg tablet RxNorm: 708882 1 Tablet(s) PO Q PM for restless legs--replaces requip 11/26/2016 05/30/2017 Inactive Mobic 15 mg tablet RxNorm: 801821 1 Tablet(s) PO QD 10/08/20162016 Inactive cyclobenzaprine 5 mg tablet RxNorm: 037391 1/2- 1 Tablet(s) PO TID 10/08/2016 10/17/2016 Inactive Ativan 0.5 mg tablet RxNorm: 291104 1 Tablet(s) PO TID 09/20/201607/2016 Inactive amitriptyline 50 mg tablet RxNorm: 552889 1 Tablet(s) PO QHS 201605/30/2017 Inactive propranolol 60 mg tablet RxNorm: 468071 1 Tablet(s) PO BID repl aces 40mg dose 09/19/2016 06/26/2017 Inactive Ativan 0.5 mg tablet RxNorm: 105547 1 Tablet(s) PO TID 08/20/2016 Inactive omeprazole 40 mg capsule,delayed release RxNorm: 522669 1 Capsule(s) PO BID TAKE ONE CAPSULE BY MOUTH TWICE DAILY 08/20/2016 05/30/2017 Inactive amitriptyline 50 mg tablet RxNorm: 143885 1 Tablet(s) PO QHS 201609/18/2016 Inactive pramipexole 1 mg tablet RxNorm: 452028 1 Tablet(s) PO Q PM for restless legs--replaces requip 07/23/2016 11/25/2016 Inactive Amaryl 2 mg tablet RxNorm: 582243 1 Tablet(s) PO BID 07/23/201612/27 Inactive propranolol 40 mg tablet RxNorm: 740789 1 Tablet(s) PO BID 07/13/19 17 09/18/2016 Inactive Ativan 0.5 mg tablet RxNorm: 564219 1 Tablet(s) PO QID 06/19/2016 Inactive Amaryl 2 mg tablet RxNorm: 931271 1 Tablet(s) PO BID 06/19/201607/22 Inactive Ativan 0.5 mg tablet RxNorm: 030456 1 Tablet(s) PO QID 06/19/2016 Inactive buspirone 5 mg tablet RxNorm: 941503 1 Tablet(s) PO TID 06/19/2016 Inactive Ativan 0.5 mg tablet RxNorm: 609092 1 Tablet(s) PO BID 05/24/2016 Inactive buspirone 5 mg tablet RxNorm: 293474 1 Tablet(s) PO TID 05/23/2016 Inactive Macrobid 100 mg capsule RxNorm: 885750 1 Capsule(s) PO QOD 05/03/1910/07/2016 Inactive pramipexole 1 mg tablet RxNorm: 994954 Tablet(s) 1 Tabl et(s) PO QPM for restless legs--replaces requip 04/26/2016 06/24/2016 Inactive propranolol 40 mg tablet RxNorm: 419877 TAKE ONE TABLET BY MOUT H TWICE DAILY 04/26/2016 06/24/2016 Inactive Detrol LA 4 mg capsule,extended release RxNorm: 675141 1 Capsul e(s) PO QHS 04/03/2016 05/02/2016 Inactive prednisone 20 mg tablet RxNorm: 770530 1 Tablet(s) PO QD 02/29/2016 0 03/04/2016 Inactive Actos 30 mg tablet RxNorm: 532606 TAKE ONE TABLET BY MOUTH ONCE DAILY 02/27/2016 12/19/2016 Inactive clindamycin 300 mg capsule RxNorm: 275637 1 Capsule(s) PO TID 02/0102/08/2016 Inactive Flagyl 500 mg tablet RxNorm: 567034 1 Tablet(s) PO BID 02/02/201609/2015 Inactive omeprazole 40 mg capsule,delayed release RxNorm: 657698 TAKE ONE CAPSULE BY MOUTH TWICE DAILY 01/15/2016 07/12/2016 Inactive gabapentin 300 mg capsule RxNorm: 317860 1 Capsule(s) PO QAM an d 2 po q HS 01/05/2016 06/18/2016 Inactive gabapentin 300 mg capsule RxNorm: 372667 1 Capsule(s) P O BID 1 Capsule(s) PO QHS 12/05/2015 01/04/2016 Inactive cyclobenzaprine 10 mg tablet RxNorm: 953295 1 Tablet(s) PO TID for spasm as needed for muscle spasm 12/05/2015 06/18/2016 Inactive ciprofloxacin 250 mg tablet RxNorm: 649920 1 Tablet(s) PO BID 12/0412/14/2015 Inactive pramipexole 1 mg tablet RxNorm: 275522 Tablet(s) 1 Tabl et(s) PO QPM for restless legs--replaces requip 11/07/2015 11/26/2016 Inactive Januvia 100 mg tablet RxNorm: 302844 1 Tablet(s) PO QD 10/26/201504/2015 Inactive propranolol 40 mg tablet RxNorm: 192362 TAKE ONE TABLET BY MOUT H TWICE DAILY 10/25/2015 04/21/2016 Inactive gabapentin 300 mg capsule RxNorm: 813533 1 Capsule(s) PO QHS 201512/04/2015 Inactive Cipro 500 mg tablet RxNorm: 123136 1 Tablet(s) PO BID 10/05/201511/2015 Inactive pramipexole 1 mg tablet RxNorm: 399180 Tablet(s) 1 Tabl et(s) PO QPM for restless legs--replaces requip 10/04/2015 11/02/2015 Inactive propranolol 40 mg tablet RxNorm: 921272 TAKE ONE TABLET BY MOUT H TWICE DAILY 09/26/2015 10/24/2015 Inactive Amaryl 2 mg tablet RxNorm: 178331 1 Tablet(s) PO QD 09/15/20152016 Inactive gabapentin 300 mg capsule RxNorm: 034948 1 Capsule(s) PO QHS 201510/14/2015 Inactive buspirone 5 mg tablet RxNorm: 603970 1 Tablet(s) PO TID 09/15/2015 Inactive pramipexole 1 mg tablet RxNorm: 838467 Tablet(s) 1 Tabl et(s) PO QPM for restless legs--replaces requip 09/08/2015 10/03/2015 Inactive pramipexole 1 mg tablet RxNorm: 519567 1 Tablet(s) PO Q PM for restless legs--replaces requip 08/08/2015 09/08/2015 Inactive Amaryl 2 mg tablet RxNorm: 515041 1 Tablet(s) PO QD 07/07/20152015 Inactive pramipexole 1 mg tablet RxNorm: 933769 1 Tablet(s) PO Q PM for restless legs--replaces requip 07/05/2015 08/03/2015 Inactive ropinirole 2 mg tablet RxNorm: 633571 TAKE ONE TABLET BY MOUTH TWICE DAILY 05/09/2015 09/14/2015 Inactive Diflucan 100 mg tablet RxNorm: 466650 1 Tablet(s) PO QD 03/30/2015 Inactive propranolol 40 mg tablet RxNorm: 118549 1 Tablet(s) PO BID 02/24/2008/21/2015 Inactive [SAVINGS FOR UNINSURED PATIE NTS -- BIN:343385, PCN: ASPROD1, Group: AME08, ID# [id number], Process claim through Litigain, for questions: . THIS IS NOT INSURANCE.] Flagyl 500 mg tablet RxNorm: 568310 1 Tablet(s) PO BID 02/03/201502/2015 Inactive Cipro 500 mg tablet RxNorm: 091679 1 Tablet(s) PO BID 02/03/201502/01 Inactive Carafate 1 gram tablet RxNorm: 126652 1 Tablet(s) PO QID make i nto slurry 02/03/2015 09/14/2015 Inactive ondansetron HCl 4 mg tablet RxNorm: 691427 1 Tablet(s) PO Q4H as needed for nausea 12/29/2014 01/04/2016 Inactive Diflucan 100 mg tablet RxNorm: 258553 1 Tablet(s) PO QD 12/29/2014 Inactive Keflex 500 mg capsule RxNorm: 922406 1 Capsule(s) PO TID 12/29/2014 1 03/09/2014 Inactive omeprazole 40 mg capsule,delayed release RxNorm: 740115 1 Capsu le(s) PO BID 12/27/2014 12/21/2015 Inactive [SAVINGS FOR UNINSUR ED PATIENTS -- BIN:017433, PCN: ASPROD1, Group: AME08, ID# [id number], Process claim through Litigain, for questions: . THIS IS NOT INSURANCE.] ropinirole 2 mg tablet RxNorm: 293546 1 Tablet(s) PO BID 09/29/2014 0 03/27/2015 Inactive [SAVINGS FOR UNINSURED PATIENTS -- BIN:0 80025, PCN: ASPROD1, Group: AME08, ID# [id number], Process claim through MedITailact, for questions: . THIS IS NOT INSURANCE.] buspirone 5 mg tablet RxNorm: 664998 1 Tablet(s) PO TID 09/17/2014 Inactive ropinirole 2 mg tablet RxNorm: 861856 1 Tablet(s) PO BID 09/02/2014 0 09/28/2014 Inactive [SAVINGS FOR UNINSURED PATIENTS -- BIN:0 93312, PCN: ASPROD1, Group: AME08, ID# [id number], Process claim through Litigain, for questions: . THIS IS NOT INSURANCE.] Zyrtec 10 mg tablet RxNorm: 7696944 1 Tablet(s) PO QD 09/02/201412/02 Inactive propranolol 40 mg tablet RxNorm: 007738 1 Tablet(s) PO BID 07/21/19 15 02/23/2015 Inactive [SAVINGS FOR UNINSURED PATIE NTS -- BIN:787438, PCN: ASPROD1, Group: AME08, ID# [id number], Process claim through MedImpact, for questions: . THIS IS NOT INSURANCE.] ropinirole 2 mg tablet RxNorm: 703236 1 Tablet(s) PO QHS 05/14/2014 0 09/01/2014 Inactive [SAVINGS FOR UNINSURED PATIENTS -- BIN:0 98563, PCN: ASPROD1, Group: AME08, ID# [id number], Process claim through MedImpact, for questions: . THIS IS NOT INSURANCE.] cyclobenzaprine 10 mg tablet RxNorm: 368517 1 Tablet(s) PO QHS for spasm 04/06/2014 09/01/2014 Inactive ipratropium-albuterol 0.5 mg-3 mg(2.5 mg base)/3 mL ne bulization soln RxNorm: 5894053 1 Unit Dose INH Q4H 03/16/2014 No Stop Date Active [SAVINGS FOR UNINSURED PATIENTS -- BIN:736207, PCN: ASPROD1, Group: AME08, ID# [id number], Process claim through MedImpact, for questions: . THIS IS NOT INSURANCE.] prednisone 20 mg tablet RxNorm: 967787 1 Tablet(s) PO BID 03/09/2014 03/15/2014 Inactive [SAVINGS FOR UNINSURED PATIENTS -- BIN:0 74317, PCN: ASPROD1, Group: AME08, ID# [id number], Process claim through MedImpact, for questions: . THIS IS NOT INSURANCE.] ipratropium-albuterol 0.5 mg-3 mg(2.5 mg base)/3 mL ne bulization soln RxNorm: 3608603 1 Unit Dose INH Q4H 03/09/2014 03/15/2014 Inactive [SAVINGS FOR UNINSURED PATIENTS -- BIN:086167, PCN: ASPROD1, Group: AME08, ID# [id number], Process claim through MedImpact, for questions: . THIS IS NOT INSURANCE.] Levaquin 500 mg tablet RxNorm: 706272 1 Tablet(s) PO QD 03/09/2014 Inactive [SAVINGS FOR UNINSURED PATIENTS -- BIN:0 93052, PCN: ASPROD1, Group: AME08, ID# [id number], Process claim through MedImpact, for questions: . THIS IS NOT INSURANCE.] Carafate 1 gram tablet RxNorm: 170898 1 Tablet(s) PO AC & HS ma ke into slurry 02/09/2014 09/01/2014 Inactive [SAVINGS FOR UNINSUR ED PATIENTS -- BIN:448639, PCN: ASPROD1, Group: AME08, ID# [id number], Process claim through MedImpact, for questions: . THIS IS NOT INSURANCE.] Fioricet 50 mg-300 mg-40 mg capsule RxNorm: 6424581 1-2 Capsule(s) PO Q4H as needed for headache --max of 6 a day 02/09/2014 09/01/2014 Inactive [SAVINGS FOR UNINSURED PATIENTS -- BIN:680666, PCN: ASPROD1, Group: AME08, ID# [id number], Process claim through MedImpact, for questions: . THIS IS NOT INSURANCE.] propranolol 40 mg tablet RxNorm: 550963 1 Tablet(s) PO BID 12/08/19 14 06/04/2014 Inactive [SAVINGS FOR UNINSURED PATIE NTS -- BIN:012516, PCN: ASPROD1, Group: AME08, ID# [id number], Process claim through MedImpact, for questions: . THIS IS NOT INSURANCE.] buspirone 5 mg tablet RxNorm: 160102 1 Tablet(s) PO TID 12/02/2013 Inactive omeprazole 40 mg capsule,delayed release RxNorm: 213760 1 Capsu le(s) PO BID 11/25/2013 11/19/2014 Inactive [SAVINGS FOR UNINSUR ED PATIENTS -- BIN:269792, PCN: ASPROD1, Group: AME08, ID# [id number], Process claim through MedImpact, for questions: . THIS IS NOT INSURANCE.] ropinirole 2 mg tablet RxNorm: 403239 1 Tablet(s) PO QHS 11/10/2013 0 05/08/2014 Inactive [SAVINGS FOR UNINSURED PATIENTS -- BIN:0 52243, PCN: ASPROD1, Group: AME08, ID# [id number], Process claim through MedImpact, for questions: . THIS IS NOT INSURANCE.] Cipro 500 mg tablet RxNorm: 893273 1 Tablet(s) PO BID 10/21/201312/03 Inactive [SAVINGS FOR UNINSURED PATIENTS -- BIN:0 90802, PCN: ASPROD1, Group: AME08, ID# [id number], Process claim through MedImpact, for questions: . THIS IS NOT INSURANCE.] hydroxyzine HCl 25 mg tablet RxNorm: 371058 1 Tablet(s) PO Q4-6 H as needed 10/05/2013 01/04/2016 Inactive [SAVINGS FOR UNINSUR ED PATIENTS -- BIN:966689, PCN: ASPROD1, Group: AME08, ID# [id number], Process claim through MedImpact, for questions: . THIS IS NOT INSURANCE.] triamcinolone acetonide 0.1 % topical cream RxNorm: 7013776 Appl ication TOP BID 10/05/2013 09/01/2014 Inactive [SAVINGS FOR UNINSUR ED PATIENTS -- BIN:277481, PCN: ASPROD1, Group: AME08, ID# [id number], Process claim through MedImpact, for questions: . THIS IS NOT INSURANCE.] albuterol sulfate HFA 90 mcg/actuation aerosol inhaler RxNor m: 8226734 2 Puff(s) INH Q4H as needed for cough 10/01/2013 12/22/2013 Inactive [MAKSIM INGS FOR UNINSURED PATIENTS -- BIN:140651, PCN: ASPROD1, Group: AME08, ID# [id number], Process claim through MedImpact, for questions: . THIS IS NOT INSURANCE.] propranolol 40 mg tablet RxNorm: 064139 1 Tablet(s) PO BID 09/02/19 14 11/29/2013 Inactive [SAVINGS FOR UNINSURED PATIE NTS -- BIN:822075, PCN: ASPROD1, Group: AME08, ID# [id number], Process claim through MedImpact, for questions: . THIS IS NOT INSURANCE.] propranolol 40 mg tablet RxNorm: 255326 1 Tablet(s) PO BID 08/05/19 14 08/31/2013 Inactive [SAVINGS FOR UNINSURED PATIE NTS -- BIN:419920, PCN: ASPROD1, Group: AME08, ID# [id number], Process claim through MedImpact, for questions: . THIS IS NOT INSURANCE.] Toprol XL 50 mg tablet,extended release RxNorm: 327068 1 Tablet (s) PO QHS 07/23/2013 08/03/2013 Inactive Macrobid 100 mg capsule RxNorm: 482061 1 Capsule(s) PO BID 07/04/19 14 07/09/2013 Inactive Toprol XL 50 mg tablet,extended release RxNorm: 485733 1 Tablet (s) PO QHS 05/28/2013 06/26/2013 Inactive ciprofloxacin 500 mg tablet RxNorm: 577068 1 Tablet(s) PO BID 05/2706/02/2013 Inactive Bystolic 5 mg tablet RxNorm: 808242 1 Tablet(s) PO QD 05/27/201305/03 Inactive ropinirole 2 mg tablet RxNorm: 766862 1 Tablet(s) PO QHS 04/22/2013 0 11/09/2013 Inactive Cipro 250 mg tablet RxNorm: 262690 1 Tablet(s) PO BID 04/06/201311/2013 Inactive ropinirole 2 mg tablet RxNorm: 913912 1 Tablet(s) PO QHS 02/17/2013 0 04/21/2013 Inactive Amaryl 2 mg tablet RxNorm: 792736 1 Tablet(s) PO QAM 11/11/201211/10 Inactive Amaryl 2 mg tablet RxNorm: 931697 1 Tablet(s) PO QAM 11/11/201204/05 Inactive omeprazole 40 mg capsule,delayed release RxNorm: 697417 1 Capsu le(s) PO BID 08/14/2012 08/08/2013 Inactive Bystolic 5 mg tablet RxNorm: 437911 1 Tablet(s) PO QD 08/14/201205/03 Inactive propranolol 60 mg tablet RxNorm: 117228 Tablet(s) PO TAKE 1 TAB LET TWICE DAILY 08/01/2012 09/01/2012 Inactive Bystolic 5 mg tablet RxNorm: 563710 1 Tablet(s) PO QD 07/21/201207/02 Inactive Bystolic 5 mg tablet RxNorm: 752378 1 Tablet(s) PO QD 07/21/201207/03 Inactive Prilosec 40 mg capsule,delayed release RxNorm: 987000 1 Capsule (s) PO BID 06/24/2012 07/21/2012 Inactive buspirone 10 mg tablet RxNorm: 417605 1 Tablet(s) PO TID 05/08/2012 0 05/23/2016 Inactive Valium 10 mg tablet RxNorm: 004322 1 Tablet(s) PO BID 04/02/201207/03 Inactive Endocet 10 mg-325 mg tablet RxNorm: 1780220 1 Tablet(s) PO QID 03/0607/21/2012 Inactive as needed for severe pain Valium 10 mg tablet RxNorm: 428553 1 Tablet(s) PO BID 02/27/2012 No S top Date Active Endocet 10 mg-325 mg tablet RxNorm: 8449900 1 Tablet(s) PO QID 02/0203/27/2012 Inactive as needed for severe pain Endocet 10 mg-325 mg tablet RxNorm: 8712797 1 Tablet(s) PO QID 01/0302/26/2012 Inactive as needed for severe pain Valium 10 mg tablet RxNorm: 291532 1 Tablet(s) PO BID 01/29/2012 No S top Date Active Protonix 40 mg tablet,delayed release RxNorm: 880354 1 Tablet(s ) PO QD 01/28/2012 07/21/2012 Inactive metformin ER 500 mg tablet,extended release 24 hr RxNorm: 86 0977 1 Tablet(s) PO QD 12/26/2011 07/20/2012 Inactive Trazadone 150 mg Tablet RxNorm: 1 Tablet(s) PO QHS prn sleep 1 04/23/2012 Inactive Endocet 10 mg-325 mg tablet RxNorm: 3426239 1 Tablet(s) PO QID 12/0301/24/2012 Inactive as needed for severe pain Nexium 40 mg capsule,delayed release RxNorm: 564537 1 Capsule(s ) PO QD 12/26/2011 01/27/2012 Inactive Symbicort 160 mcg-4.5 mcg/actuation HFA Aerosol Inhaler RxNo rm: 5731942 2 Puff(s) INH BID 12/04/2011 07/21/2012 Inactive Endocet 10 mg-325 mg tablet RxNorm: 6216440 1 Tablet(s) PO QID 11/0312/25/2011 Inactive as needed for severe pain metformin ER 500 mg tablet,extended release 24 hr RxNorm: 86 0977 1 Tablet(s) PO QD 11/20/2011 12/19/2011 Inactive metformin ER 500 mg tablet,extended release 24 hr RxNorm: 86 0977 1 Tablet(s) PO QD 11/20/2011 11/19/2011 Inactive amitriptyline 100 mg tablet RxNorm: 864274 Tablet(s) PO QHS 1 a nd 1/2 tabs QHS 11/12/2011 11/13/2011 Inactive Valium 10 mg tablet RxNorm: 976156 1 Tablet(s) PO BID 11/09/2011 No S top Date Active Endocet 10 mg-325 mg tablet RxNorm: 4858438 1 Tablet(s) PO QID 10/0211/14/2011 Inactive as needed for severe pain Aricept 10 mg Tab RxNorm: 453241 1 Tablet(s) PO QD 10/05/2011 013 Inactive Valium 10 mg tablet RxNorm: 474775 1 Tablet(s) PO BID 10/05/2011 No S top Date Active Endocet 10 mg-325 mg Tab RxNorm: 8857356 1 Tablet(s) PO QID 012 10/09/2011 Inactive as needed for severe pain Aricept 10 mg Tab RxNorm: 030710 1 Tablet(s) PO QD 08/14/2011 012 Inactive Endocet 10 mg-325 mg Tab RxNorm: 9118287 1 Tablet(s) PO QID 012 08/31/2011 Inactive as needed for severe pain Valium 10 mg Tab RxNorm: 078438 1 Tablet(s) PO BID 08/02/2011 No Stop Date Active propranolol 60 mg tablet RxNorm: 530696 1 Tablet(s) PO BID 07/26/19 12 09/11/2011 Inactive amitriptyline 100 mg tablet RxNorm: 991340 Tablet(s) PO QHS 1 a nd /2 tabs QHS 06/20/2011 09/11/2011 Inactive buspirone 10 mg tablet RxNorm: 054905 1 Tablet(s) PO BID 06/18/2011 0 09/15/2011 Inactive propranolol 60 mg Tab RxNorm: 645178 1 Tablet(s) PO BID 06/18/2011 Inactive gabapentin 800 mg Tab RxNorm: 284648 1 Tablet(s) PO BID 06/18/2011 Inactive ropinirole 2 mg tablet RxNorm: 845446 1 Tablet(s) PO QHS 05/29/2011 0 08/26/2011 Inactive trimethoprim 100 mg Tab RxNorm: 775959 1 Tablet(s) PO QHS 05/29/2011 07/21/2012 Inactive Endocet 10 mg-325 mg Tab RxNorm: 6682149 1 Tablet(s) PO QID 012 2011 Inactive as needed for severe pain Valium 10 mg Tab RxNorm: 779625 1 Tablet(s) PO QHS N eed to take med as prescribed. this is a 40 day RX. No early fills. 05/17/2011 05/20/2018 Inactive propranolol 60 mg Tab RxNorm: 248887 1 Tablet(s) PO BID 04/16/2011 Inactive Neurontin 800 mg Tab RxNorm: 936421 1 Tablet(s) PO QHS 04/05/201103/2011 Inactive Endocet 10 mg-325 mg Tab RxNorm: 0935447 1 Tablet(s) PO QID 012 05/02/2011 Inactive as needed for severe pain oxycodone-acetaminophen 10 mg-325 mg tablet RxNorm: 4639046 1 Ta blet(s) PO Q4H 03/28/2011 05/19/2012 Inactive Valium 10 mg Tab RxNorm: 433572 1 Tablet(s) PO QHS 03/28/2011 012 Inactive buspirone 10 mg Tab RxNorm: 544476 1 Tablet(s) PO BID 03/27/201106/02 Inactive propranolol 60 mg Tab RxNorm: 527049 1 Tablet(s) PO BID 03/19/2011 Inactive Klor-Con M20 20 mEq Tab RxNorm: 0853168 1 Tablet(s) PO QD 03/19/2011 07/21/2012 Inactive Aricept 10 mg Tab RxNorm: 737872 1 Tablet(s) PO QD 02/27/2011 012 Inactive propranolol 60 mg Tab RxNorm: 934901 1 Tablet(s) PO BID 02/19/2011 Inactive omeprazole 40 mg capsule,delayed release RxNorm: 571712 1 Capsu le(s) PO BID 01/24/2011 05/23/2011 Inactive clindamycin 300 mg capsule RxNorm: 744942 1 Capsule(s) PO TID 01/2402/02/2011 Inactive propranolol 60 mg Tab RxNorm: 041420 1 Tablet(s) PO BID 01/22/2011 No Stop Date Active nystatin 100,000 unit/g Topical Cream RxNorm: 054548 Applicatio n TOP BID 01/15/2011 01/14/2011 Inactive to rash for 2-4 week s Diflucan 200 mg Tab RxNorm: 396188 1 Tablet(s) PO QD 01/15/201101/28 Inactive buspirone 10 mg Tab RxNorm: 057648 1 Tablet(s) PO BID 01/08/201103/05 Inactive Valium 10 mg Tab RxNorm: 503575 1 Tablet(s) PO QHS 01/05/2011 012 Inactive Diflucan 200 mg Tab RxNorm: 282446 1 Tablet(s) PO QD 01/01/201101/14 Inactive Diflucan 200 mg Tab RxNorm: 476313 1 Tablet(s) PO QD 12/18/201012/31 Inactive Valium 10 mg Tab RxNorm: 138358 1 Tablet(s) PO QHS 12/12/2010 011 Inactive Diflucan 200 mg Tab RxNorm: 802162 1 Tablet(s) PO QD 12/07/201012/18 Inactive Aricept 10 mg Tab RxNorm: 127802 1 Tablet(s) PO QD 11/20/2010 011 Inactive ropinirole 1 mg Tab RxNorm: 199345 1 Tablet(s) PO QHS 11/16/201005/03 Inactive enalapril maleate 5 mg Tab RxNorm: 747237 1 Tablet(s) PO QD 011 05/20/2018 Inactive buspirone 10 mg Tab RxNorm: 461536 1 Tablet(s) PO BID 11/16/201012/02 Inactive Valium 10 mg Tab RxNorm: 703746 1 Tablet(s) PO QHS 11/07/2010 011 Inactive Pyridium 100 mg Tab RxNorm: 8235024 1 Tablet(s) PO TID 11/02/201004/2010 Inactive Macrobid 100 mg Cap RxNorm: 2742004 1 Capsule(s) PO BID 11/02/2010 Inactive buspirone 10 mg Tab RxNorm: 973722 1 Tablet(s) PO QHS 10/18/201005/02 Inactive propranolol 60 mg Tab RxNorm: 839608 1 Tablet(s) PO BID 09/18/2010 Inactive Valium 10 mg Tab RxNorm: 045299 1 Tablet(s) PO QHS 09/05/2010 09/02/2 011 Inactive Aricept 10 mg Tab RxNorm: 152032 1 Tablet(s) PO QD 08/14/2010 011 Inactive Valium 10 mg Tab RxNorm: 080052 1 Tablet(s) PO QHS 06/26/2010 011 Inactive ropinirole 1 mg Tab RxNorm: 406626 1 Tablet(s) PO QHS 06/19/201010/02 Inactive omeprazole 40 mg Cap, delayed release RxNorm: 962099 1 Capsule( s) PO QD 06/07/2010 10/04/2010 Inactive Endocet 10 mg-325 mg Tab RxNorm: 9048758 1 Tablet(s) PO QID as needed for severe pain 06/07/2010 03/07/2011 Inactive Endocet 10 mg-325 mg Tab RxNorm: 7517027 1 Tablet(s) PO QID as needed for severe pain 05/04/2010 06/02/2010 Inactive Valium 10 mg Tab RxNorm: 668321 1 Tablet(s) PO QHS 05/01/2010 011 Inactive propranolol 60 mg Tab RxNorm: 348268 1 Tablet(s) PO BID 04/03/2010 Inactive Valium 10 mg Tab RxNorm: 703600 1 Tablet(s) PO QHS 03/28/2010 011 Inactive omeprazole 40 mg Cap, Delayed Release RxNorm: 210506 1 Capsule( s) PO QD 03/28/2010 06/06/2010 Inactive Endocet 10 mg-325 mg Tab RxNorm: 4981350 1 Tablet(s) PO QID prn ari n 03/27/2010 05/20/2018 Inactive Valium 10 mg Tab RxNorm: 519045 1 Tablet(s) PO QHS 02/20/2010 011 Inactive Diflucan 100 mg Tab RxNorm: 852551 1 Tablet(s) PO BID 01/23/201003/2009 Inactive Diflucan 100 mg Tab RxNorm: 989937 1 Tablet(s) PO BID 01/05/201001/02 Inactive Aricept 10 mg Tab RxNorm: 920319 1 Tablet(s) PO QD 12/01/2009 011 Inactive OxyContin 20 mg 12 hr Tab RxNorm: 6152611 1 Tablet(s) PO BID 200904/05/2010 Inactive oxycodone-acetaminophen 10 mg-325 mg Tab RxNorm: 7843425 1 Table t(s) PO Q4H 11/22/2009 11/26/2009 Inactive Phenergan 25 mg Tab RxNorm: 516271 1 Tablet(s) PO PRN MIGRAINE 11/0303/07/2011 Inactive Demerol 100 mg Tab RxNorm: 483730 1 Tablet(s) PO PRN MIGRAINE 11/2203/07/2011 Inactive Oxycodone-Acetaminophen 10 mg-325 mg Tab RxNorm: 1337950 1 Table t(s) PO Q4H 10/11/2009 10/15/2009 Inactive Percocet 10 mg-325 mg Tab RxNorm: 6898100 1 Tablet(s) PO Q4H 200910/24/2009 Inactive propranolol 60 mg Tab RxNorm: 922534 1 Tablet(s) PO BID 08/29/2009 Inactive Valium 10 mg Tab RxNorm: 432541 1 Tablet(s) PO QHS 08/16/2009 010 Inactive Keflex 500 mg Cap RxNorm: 977172 1 Capsule(s) PO BID 07/25/200907/31 Inactive Hydroxyzine 25 mg Tab RxNorm: 946834 1 Tablet(s) PO TID 07/25/2009 Inactive Prednisone 20 mg Tab RxNorm: 899656 1 Tablet(s) PO BID 07/25/2009 Inactive Demerol 100 mg Tab RxNorm: 354035 1 Tablet(s) PO PRN MIGRAINE 07/25 No Stop Date Active Ropinirole 1 mg Tab RxNorm: 033993 1 Tablet(s) PO HS 07/20/200902/14 Inactive Valium 10 mg Tab RxNorm: 319447 1 Tablet(s) PO QHS 07/18/2009 010 Inactive Endocet 10 mg-325 mg Tab RxNorm: 0878820 1 Tablet(s) PO TID 010 07/07/2009 Inactive Demerol 100 mg Tab RxNorm: 881553 1 Tablet(s) PO PRN MIGRAINE 06/08 No Stop Date Active Ropinirole 1 mg Tab RxNorm: 396434 1 Tablet(s) PO HS 05/16/200907/14 Inactive ipratropium-albuterol 0.5 mg-3 mg(2.5 mg base)/3 mL ne bulization soln RxNorm: 1263346 1 Unit Dose INH Q4H as needed No Start Date Active diltiazem CD 240 mg capsule,extended release 24 hr RxNorm: 8 90828 1 Capsule(s) PO QD No Start Date Active metoprolol tartrate 25 mg tablet RxNorm: 465829 1 Tablet(s) PO BID No Start Date Active MagOx 400 mg (241.3 mg magnesium) tablet RxNorm: 978456 1 Table t(s) PO BID No Start Date Active Vitamin B12 1000mcg Tablet RxNorm: 1 Tablet(s) PO QD No Start Date Active Vitamin D3 5,000 unit tablet RxNorm: 415057 1 Tablet(s) PO QD No Star t Date Active Tylenol Arthritis Pain 650 mg tablet,extended release RxNorm : 2391211 1 Tablet(s) PO Q4H No Start Date Active Lotrimin AF 2 % topical powder RxNorm: 485083 1 Application TOP BID No Start Date Active enalapril maleate 5 mg Tab RxNorm: 779768 1 Tablet(s) PO QD No Star t Date 07/20/2012 Inactive Demerol 100 mg Tab RxNorm: 449313 Tablet(s) PO PRN MIGRAINE No Star t Date 06/02/2009 Inactive metformin 500 mg tablet RxNorm: 613337 1 Tablet(s) PO QD No Start D ate 04/05/2013 Inactive Breo Ellipta 100 mcg-25 mcg/dose powder for inhalation RxNor m: 2035451 1 Puff(s) INH BID No Start Date 01/04/2016 Inactive Mag-Oxide 400 mg Tab RxNorm: 449236 1 Tablet(s) PO QD No Start Date 0 07/21/2012 Inactive Cipro 500 mg Tab RxNorm: 350797 1 Tablet(s) PO QD No Start Date 04/05 Inactive Ativan 0.5 mg tablet RxNorm: 891897 1 Tablet(s) PO TID as needed No Start Date 05/06/2019 Inactive melatonin 3 mg tablet RxNorm: 970125 2 Tablet(s) PO QHS No Start Da te 08/19/2018 Inactive buspirone 10 mg Tab RxNorm: 443474 1 Tablet(s) PO QD No Start Date Inactive sucralfate 100 mg/mL Oral Susp RxNorm: 840883 2 Teaspoon(s) PO QID No Start Date 07/21/2012 Inactive hydrocodone 5 mg-acetaminophen 325 mg tablet RxNorm: 076852 1 Tablet(s) PO Q4H as needed No Start Date 08/19/2018 Inactive Amaryl 2 mg tablet RxNorm: 753966 1 Tablet(s) PO BID No Start Date Inactive OxyContin 20 mg 12 hr Tab RxNorm: 9037112 1 Tablet(s) PO BID No Sta rt Date 11/27/2009 Inactive propranolol 40 mg tablet RxNorm: 503241 1 Tablet(s) PO QID No Start Date 01/19/2018 Inactive Trazadone 150 mg Tablet RxNorm: 1-2 Tablet(s) PO QHS prn sleep No Start Date 08/09/2010 Inactive propranolol 60 mg Tab RxNorm: 338016 1/2 Tablet(s) PO BID No Start Date 01/21/2011 Inactive insulin NPH and regular human subcutaneous RxNorm: 8213694 subcu taneous No Start Date 11/20/2018 Inactive Ativan 0.5 mg tablet RxNorm: 614573 1 Tablet(s) PO QID No Start Date 06/18/2016 Inactive Vasotec 5 mg Tab RxNorm: 174624 1 Tablet(s) PO BID No Start Date 06/2011 Inactive Toprol XL 50 mg tablet,extended release RxNorm: 318473 1 Tablet (s) PO BID No Start Date 04/05/2013 Inactive Ativan 0.5 mg tablet RxNorm: 941631 1 Tablet(s) PO TID No Start Date 05/25/2016 Inactive Klor-Con M20 20 mEq Tab RxNorm: 3032565 1 Tablet(s) PO QD No Start Date 03/19/2011 Inactive sumatriptan 100 mg tablet RxNorm: 696115 1 Tablet(s) PO at headache onset--repeat in 2hrs if remains No Start Date 07/21/2012 Inactive propranolol 60 mg Tab RxNorm: 800453 1 Tablet(s) PO BID No Start Da te 08/28/2009 Inactive Cholestyramine Light 4 gram Oral Powder RxNorm: 6721204 1 Unit Dose PO QD in water No Start Date 07/21/2012 Inactive nystatin 100,000 unit/g Topical Powder RxNorm: 532222 Applicati on TOP BID No Start Date 07/21/2012 Inactive vitamin H71-owmlz acid sublingual RxNorm: sublingual No Start Date 07/05/2013 Inactive cyclobenzaprine 5 mg tablet RxNorm: 578137 1/2-1 Tablet (s) PO TID as needed for muscle spasm No Start Date 07/18/2017 Inactive tramadol 50 mg tablet RxNorm: 456931 2 Tablet(s) PO TID as need ed for pain No Start Date 09/01/2014 Inactive aspirin 81 mg Tab RxNorm: 231376 1 Tablet(s) PO QOD No Start Date 04/2013 Inactive Vitamin B12 1000mcg Tablet RxNorm: 1 Tablet(s) PO QD No Start Date 07/18/2017 Inactive cholestyramine (with sugar) 4 gram oral powder RxNorm: 93417 3 1 Unit(s) PO QD as needed No Start Date 05/20/2018 Inactive ProAir HFA 90 mcg/Actuation Aerosol Inhaler RxNorm: 840854 2 Puff(s) INH Q4H prn shortness of breath No Start Date 07/21/2012 Inactive pravastatin 10 mg Tab RxNorm: 630581 1 Tablet(s) PO QD No Start Date 07/21/2012 Inactive gabapentin 800 mg Tab RxNorm: 731733 1 Tablet(s) PO BID No Start Da te 06/03/2011 Inactive Endocet 10 mg-325 mg Tab RxNorm: 4733714 1 Tablet(s) PO TID No Star t Date 06/02/2009 Inactive Naproxen 500 mg Tab RxNorm: 898214 1 Tablet(s) PO BID No Start Date 0 04/05/2010 Inactive Valium 10 mg Tab RxNorm: 313038 1 Tablet(s) PO BID No Start Date 07/04 Inactive enalapril maleate 5 mg Tab RxNorm: 173240 1 Tablet(s) PO QD No Star t Date 11/15/2010 Inactive doxepin 10 mg capsule RxNorm: 1503362 2 Capsule(s) PO QHS No Start Date 09/17/2018 Inactive MS Contin 15 mg Tab RxNorm: 222903 1 Tablet(s) PO BID No Start Date 0 09/18/2010 Inactive buspirone 5 mg tablet RxNorm: 420587 1 Tablet(s) PO TID No Start Da te 12/01/2013 Inactive [place] 3 Fish Oil Cap RxNorm: 1 Capsule(s) PO QD No Start Date 07/03 Inactive enalapril maleate 5 mg Tab RxNorm: 245041 1/2 Tablet(s) PO QD No St art Date 03/07/2011 Inactive Lyrica 75 mg capsule RxNorm: 925243 1 Capsule(s) PO QHS No Start Da te 02/08/2014 Inactive Lopressor 100 mg tablet RxNorm: 090599 1 Tablet(s) PO BID No Start Date 06/08/2018 Inactive Lantus Solostar U-100 Insulin 100 unit/mL (3 mL) subcu taneous pen RxNorm: 887581 45 Unit(s) SQ QAM No Start Date 05/20/2018 Inactive aspirin 81 mg tablet RxNorm: 071081 1 Tablet(s) PO QD No Start Date 0 09/14/2015 Inactive insulin NPH isophane U-100 human subcutaneous RxNorm: 825078 beckwith bcutaneous No Start Date 04/20/2019 Inactive sumatriptan 100 mg tablet RxNorm: 749881 1 Tablet(s) PO at headache onset. May repeat 1 in two hours if headache remains. Max of 2 per 24 hours No Start Date 04/01/2018 Inactive gabapentin 300 mg capsule RxNorm: 644187 1 Capsule(s) PO QHS No Sta rt Date 02/04/2018 Inactive Topamax 25 mg Tab RxNorm: 398759 Oral No Start Date 03/07/2011 In active Senokot-S 8.6 mg-50 mg Tab RxNorm: 5801248 1 Tablet(s) PO QD No Sta rt Date 03/07/2011 Inactive metformin ER 500 mg 24 hr tablet,extended release RxNorm: 18 03284 1 Tablet(s) PO QD No Start Date 05/20/2018 Inactive Symbicort 80 mcg-4.5 mcg/actuation HFA Aerosol Inhaler RxNor m: 8878389 2 Puff(s) INH BID No Start Date 04/05/2013 Inactive propranolol 60 mg Tab RxNorm: 449448 1/2 Tablet(s) PO BID No Start Date 07/21/2012 Inactive metformin ER 500 mg 24 hr tablet,extended release RxNorm: 18 01239 2 Tablet(s) PO QD No Start Date 12/16/2017 Inactive Insulin Syringe 1 mL 29 gauge x 1/2" RxNorm: 2 s yringes daily with insulin Dx: E11.65 No Start Date 10/07/2018 Inactive Amitriptyline 75 mg Tab RxNorm: 347007 1 Tablet(s) PO QHS No Start Date 10/23/2009 Inactive donepezil 10 mg Tab RxNorm: 365863 1 Tablet(s) PO QD No Start Date Inactive Lantus Solostar U-100 Insulin 100 unit/mL (3 mL) subcu taneous pen RxNorm: 141868 36 Unit(s) SQ QAM No Start Date 12/24/2017 Inactive Miacalcin 200 unit/Actuation Nasal [place] Aerosol RxNorm: 261 204 1 [place] NASAL QD Alternate nostrils each day No Start Date 04/05/2010 Inactive Amitriptyline 150 mg Tab RxNorm: 982673 1 Tablet(s) PO QHS No Start Date 01/04/2010 Inactive Bystolic 5 mg tablet RxNorm: 215830 1 Tablet(s) PO QD No Start Date 0 08/13/2012 Inactive Aricept 10 mg Tab RxNorm: 635626 1 Tablet(s) PO QD No Start Date 11/03 Inactive Lantus Solostar U-100 Insulin 100 unit/mL (3 mL) subcu taneous pen RxNorm: 806525 50 Unit(s) SQ QAM No Start Date 08/27/2018 Inactive albuterol sulfate 2.5 mg/3 mL (0.083 %) Neb Solution RxNorm: 787303 1 Unit Dose INH QID as needed No Start Date 08/23/2015 Inactive Symbicort 160 mcg-4.5 mcg/actuation HFA Aerosol Inhaler RxNo rm: 8917181 2 Puff(s) INH BID No Start Date 12/03/2011 Inactive Savella 50 mg Tab RxNorm: 081179 1 Tablet(s) PO BID No Start Date 04/2010 Inactive amitriptyline 100 mg Tab RxNorm: 275119 1 1/2 Tablet(s) PO QHS No S tart Date 06/19/2011 Inactive nystatin 100,000 unit/g Topical Cream RxNorm: 960887 Ap plication TOP BID to rash for 2-4 weeks No Start Date 01/14/2011 Inactive Trelegy Ellipta 100 mcg-62.5 mcg-25 mcg powder for inhalatio n RxNorm: 4748655 1 Puff(s) INH QD No Start Date 12/16/2017 Inactive Lyrica 150 mg capsule RxNorm: 670915 1 Capsule(s) PO QHS No Start D ate 12/04/2015 Inactive sennosides 8.6 mg tablet RxNorm: 835288 1 Tablet(s) PO BID No Start Date 09/07/2018 Inactive metformin ER 500 mg tablet,extended release 24 hr RxNorm: 86 0975 1 Tablet(s) PO QD No Start Date 10/22/2017 Inactive Fish Oil 1,000 mg Cap RxNorm: 1 Capsule(s) PO QD No Start Date 06/2011 Inactive Zyrtec 10 mg Tab RxNorm: 6088387 1 Tablet(s) PO QD No Start Date 07/03 Inactive albuterol sulfate HFA 90 mcg/actuation aerosol inhaler RxNor m: 7932342 2 Puff(s) INH Q4H as needed for cough No Start Date 09/30/2013 Inactive trazodone 150 mg tablet RxNorm: 769935 1 Tablet(s) PO QHS No Start Date 07/21/2012 Inactive Spiriva with HandiHaler 18 mcg & inhalation capsules RxNorm: 546576 1 Capsule(s) INH QD No Start Date 04/05/2013 Inactive Coreg 3.125 mg Tab RxNorm: 955881 1 Tablet(s) PO BID No Start Date Inactive Phenergan 25 mg Tab RxNorm: 727182 Tablet(s) PO PRN MIGRAINE No Sta rt Date 11/21/2009 Inactive Vitamin D 50,000 unit Cap RxNorm: 9475055 1 Capsule(s) PO QW No Sta rt Date 03/07/2011 Inactive Januvia 100 mg tablet RxNorm: 633954 1 Tablet(s) PO QD No Start Date 10/25/2015 Inactive Eliquis 5 mg tablet RxNorm: 4805165 1 Tablet(s) PO BID No Start Date 08/19/2018 Inactive Advair Diskus 500 mcg-50 mcg/Dose for Inhalation RxNorm: 773832 1 INH BID No Start Date 07/21/2012 Inactive Vitamin D3 5,000 unit tablet RxNorm: 008538 1 Tablet(s) PO QD No St art Date 07/18/2017 Inactive Amaryl 2 mg tablet RxNorm: 683741 1 Tablet(s) PO QD No Start Date 06/2015 Inactive Actos 30 mg tablet RxNorm: 438193 1 Tablet(s) PO QD No Start Date Inactive promethazine 25 mg tablet RxNorm: 702355 1 Tablet(s) PO Q4H prn N/V No Start Date 07/21/2012 Inactive ProAir HFA 90 mcg/actuation Aerosol Inhaler RxNorm: 590112 2 Puff(s) INH Q4H prn dyspnea No Start Date 07/21/2012 Inactive Dexilant 60 mg Capsule RxNorm: 398368 1 Capsule(s) PO QD No Start D ate 01/27/2012 Inactive Lantus Solostar U-100 Insulin 100 unit/mL (3 mL) subcu taneous pen RxNorm: 505016 38 Unit(s) SQ QAM No Start Date 05/20/2018 Inactive Valium 10 mg Tab RxNorm: 039345 1 Tablet(s) PO QHS AND PRN No Start Date 10/24/2009 Inactive ZOFRAN ODT 8 mg disintegrating tablet RxNorm: 870856 1 Tablet(s ) PO Q6H No Start [...] Date S ervice Location MICROALBUMIN URINE RANDOM 11138 MICRL MG/L 14.9 MG/L Unknown MICROALBUMIN URINE RANDOM 36208 XM.ALB/CRE 6.1 MG/GCR Unknown MICROALBUMIN URINE RANDOM 26032 CREAT MG/D 243 MG/DL Unknown MICROALBUMIN URINE RANDOM 71136 CRE/100 2.43 G/L 03/05 Unknown PROTEIN/CREAT URINE WITH RATIO 36011|84189 PROT R U 14 MG/D L 04/01/2014 Unknown PROTEIN/CREAT URINE WITH RATIO 97959|76213 CREAT R U 254 MG/ DL 04/01/2014 Unknown PROTEIN/CREAT URINE WITH RATIO 11604|19164 XRATIO P/C 55 MG/ G 04/01/2014 Unknown URINALYSIS 60910 PROTEIN UR NEG 04/28/2010 Unknown URINALYSIS 39254 HEMGLBN UR NEG 04/28/2010 Unknown URINALYSIS 70560 GLUCOSE UR NEG 04/28/2010 Unknown URINALYSIS 45841 KETONES UR NEG 04/28/2010 Unknown URINALYSIS 19020 PH U 5.5 04/28/2010 Unknown URINALYSIS 78782 SP GR U 1.025 04/28/2010 Unknown URINALYSIS 97765 BILRUBN UR NEG 04/28/2010 Unknown URINALYSIS 43473 LEUKO UR 2+ 04/28/2010 Unknown URINALYSIS 31352 NITRITE UR NEG 04/28/2010 Unknown MICR CUL? [id number] WBC/HPF 6-10 04/28/2010 Unknown MICR CUL? [id number] RBC/HPF 0-5 04/28/2010 Unknown MICR CUL? [id number] HYAL CAST 16-25 04/28/2010 Unknown MICR CUL? [id number] SP TO YOLIE? NO 04/28/2010 Unknown MICR CUL? [id number] APPEAR UR NORMAL 04/28/2010 Unknown MICR CUL? [id number] SQ EPI/LPF FEW 04/28/2010 Unknown Procedures Procedure Codes Date URINALYSIS NONAUTO W/O SCOPE CPT-4: 74702 04/16/2019 URINE CULTURE/ COLONY COUNT CPT-4: 59961 04/16/2019 CEFTRIAXONE SODIUM INJECTION CPT-4: J0696 04/16/2019 THER/PROPH/DIAG INJ SC/IM CPT-4: 94841 04/16/2019 DRAIN/INJECT JOINT/BURSA CPT-4: 59917 01/22/2019 TRIAMCINOLONE ACET INJ NOS CPT-4: J3301 01/22/2019 DEXAMETHASONE SODIUM PHOS CPT-4: J1100 01/22/2019 URINE CULTURE/ COLONY COUNT CPT-4: 34953 01/07/2019 URINALYSIS NONAUTO W/O SCOPE CPT-4: 81943 01/07/2019 CEFTRIAXONE SODIUM INJECTION CPT-4: J0696 01/07/2019 THER/PROPH/DIAG INJ SC/IM CPT-4: 28558 01/07/2019 FLU VACC PRSV FREE INC ANTIG 65 AND OLDER CPT-4: 79126 12/24/2018 FLU VACC PRSV FREE INC ANTIG 65 AND OLDER CPT-4: 64626 12/24/2018 ADMIN INFLUENZA VIRUS VAC CPT-4: G0008 12/24/2018 THER/PROPH/DIAG INJ SC/IM CPT-4: 20484 11/04/2018 KETOROLAC TROMETHAMINE INJ CPT-4: J1885 11/04/2018 PROMETHAZINE HCL INJECTION CPT-4: J2550 11/04/2018 PPPS, subseq visit CPT-4: G0439 09/18/2018 THER/PROPH/DIAG INJ SC/IM CPT-4: 37166 04/01/2018 KETOROLAC TROMETHAMINE INJ CPT-4: J1885 04/01/2018 PROMETHAZINE HCL INJECTION CPT-4: J2550 04/01/2018 URINE CULTURE/ COLONY COUNT CPT-4: 08832 03/17/2018 URINALYSIS NONAUTO W/O SCOPE CPT-4: 13804 03/17/2018 FLU VACC PRSV FREE INC ANTIG 65 AND OLDER CPT-4: 14721 12/17/2017 PNEUMOCOCCAL VACC 23 RANDALL IM CPT-4: 05637 12/17/2017 ADMIN INFLUENZA VIRUS VAC CPT-4: G0008 12/17/2017 ADMIN PNEUMOCOCCAL VACCINE CPT-4: G0009 12/17/2017 PPPS, subseq visit CPT-4: G0439 09/17/2017 THER/PROPH/DIAG INJ SC/IM CPT-4: 22363 08/26/2017 KETOROLAC TROMETHAMINE INJ CPT-4: J1885 08/26/2017 PROMETHAZINE HCL INJECTION CPT-4: J2550 08/26/2017 URINALYSIS NONAUTO W/O SCOPE CPT-4: 30840 07/19/2017 URINE CULTURE/ COLONY COUNT CPT-4: 60849 07/19/2017 CEFTRIAXONE SODIUM INJECTION CPT-4: J0696 07/19/2017 THER/PROPH/DIAG INJ SC/IM CPT-4: 24648 07/19/2017 THER/PROPH/DIAG INJ SC/IM CPT-4: 43853 07/19/2017 TRIAMCINOLONE ACET INJ NOS CPT-4: J3301 07/19/2017 PRESCRIP TRANSMIT VIA ERX SY CPT-4: G8553 05/07/2017 PRESCRIP TRANSMIT VIA ERX SY CPT-4: G8553 02/22/2017 PRESCRIP TRANSMIT VIA ERX SY CPT-4: G8553 01/23/2017 FLU VACC PRSV FREE INC ANTIG 65 AND OLDER CPT-4: 66916 12/20/2016 PNEUMOCOCCAL VACC 13 RANDALL IM CPT-4: 99929 12/20/2016 ADMIN INFLUENZA VIRUS VAC CPT-4: G0008 12/20/2016 ADMIN PNEUMOCOCCAL VACCINE CPT-4: G0009 12/20/2016 URINALYSIS NONAUTO W/O SCOPE CPT-4: 13313 10/08/2016 URINE CULTURE/ COLONY COUNT CPT-4: 97799 10/08/2016 PRESCRIP TRANSMIT VIA ERX SY CPT-4: G8553 10/08/2016 PRESCRIP TRANSMIT VIA ERX SY CPT-4: G8553 09/19/2016 PRESCRIP TRANSMIT VIA ERX SY CPT-4: G8553 08/20/2016 PRESCRIP TRANSMIT VIA ERX SY CPT-4: G8553 02/29/2016 KETOROLAC TROMETHAMINE INJ CPT-4: J1885 02/02/2016 THER/PROPH/DIAG INJ SC/IM CPT-4: 98322 02/02/2016 PROMETHAZINE HCL INJECTION CPT-4: J2550 02/02/2016 PRESCRIP TRANSMIT VIA ERX SY CPT-4: G8553 02/02/2016 FLU VACC PRSV FREE INC ANTIG 65 AND OLDER CPT-4: 54791 01/05/2016 PPPS, subseq visit CPT-4: G0439 01/05/2016 ADMIN INFLUENZA VIRUS VAC CPT-4: G0008 01/05/2016 URINE CULTURE/ COLONY COUNT CPT-4: 53559 12/05/2015 URINALYSIS NONAUTO W/O SCOPE CPT-4: 95028 12/05/2015 PRESCRIP TRANSMIT VIA ERX SY CPT-4: G8553 12/05/2015 PRESCRIP TRANSMIT VIA ERX SY CPT-4: G8553 10/26/2015 URINALYSIS NONAUTO W/O SCOPE CPT-4: 14066 10/05/2015 URINE CULTURE/ COLONY COUNT CPT-4: 75908 10/05/2015 PRESCRIP TRANSMIT VIA ERX SY CPT-4: G8553 10/05/2015 SERVICE REQUIRED FOR PMD CPT-4: G0372 09/15/2015 PRESCRIP TRANSMIT VIA ERX SY CPT-4: G8553 09/15/2015 SPECIAL REPORTS OR FORMS CPT-4: 90450 08/25/2015 PRESCRIP TRANSMIT VIA ERX SY CPT-4: G8553 07/05/2015 URINALYSIS NONAUTO W/O SCOPE CPT-4: 23613 03/30/2015 ASSAY, GLUCOSE, BLOOD QUANT CPT-4: 66041 03/30/2015 URINE CULTURE/ COLONY COUNT CPT-4: 39387 03/30/2015 PRESCRIP TRANSMIT VIA ERX SY CPT-4: G8553 03/30/2015 PRESCRIP TRANSMIT VIA ERX SY CPT-4: G8553 02/03/2015 FLU VACC PRSV FREE INC ANTIG 65 AND OLDER CPT-4: 28827 12/29/2014 ADMIN INFLUENZA VIRUS VAC CPT-4: G0008 12/29/2014 PRESCRIP TRANSMIT VIA ERX SY CPT-4: G8553 12/29/2014 PRESCRIP TRANSMIT VIA ERX SY CPT-4: G8553 09/02/2014 PROTEIN/CREAT URINE WITH RATIO CPT-4: 16691|09852 5 MICROALBUMIN QUANTITATIVE CPT-4: 56549 04/01/2014 PRESCRIP TRANSMIT VIA ERX SY CPT-4: G8553 03/16/2014 PRESCRIP TRANSMIT VIA ERX SY CPT-4: G8553 03/09/2014 THER/PROPH/DIAG INJ SC/IM CPT-4: 29024 03/01/2014 TRIAMCINOLONE ACET INJ NOS CPT-4: J3301 03/01/2014 PRESCRIP TRANSMIT VIA ERX SY CPT-4: G8553 02/09/2014 URINE CULTURE/ COLONY COUNT CPT-4: 81444 10/30/2013 URINALYSIS NONAUTO W/O SCOPE CPT-4: 82891 10/21/2013 URINE CULTURE/ COLONY COUNT CPT-4: 18906 10/21/2013 DESTRUCT PREMALG LESION (Cryosurgery) CPT-4: 07075 PRESCRIP TRANSMIT VIA ERX SY CPT-4: G8553 10/05/2013 URINALYSIS NONAUTO W/O SCOPE CPT-4: 91120 08/04/2013 URINE CULTURE/ COLONY COUNT CPT-4: 79593 08/04/2013 PRESCRIP TRANSMIT VIA ERX SY CPT-4: G8553 08/04/2013 THER/PROPH/DIAG INJ SC/IM CPT-4: 46950 07/13/2013 TRIAMCINOLONE ACET INJ NOS CPT-4: J3301 07/13/2013 PRESCRIP TRANSMIT VIA ERX SY CPT-4: G8553 05/27/2013 URINALYSIS NONAUTO W/O SCOPE CPT-4: 64081 05/25/2013 URINE CULTURE/ COLONY COUNT CPT-4: 75703 05/25/2013 THER/PROPH/DIAG INJ SC/IM CPT-4: 18646 05/04/2013 VITAMIN B12 INJECTION CPT-4: J3420 05/04/2013 THER/PROPH/DIAG INJ SC/IM CPT-4: 29497 04/17/2013 VITAMIN B12 INJECTION CPT-4: J3420 04/17/2013 THER/PROPH/DIAG INJ SC/IM CPT-4: 01158 04/17/2013 METHYLPREDNISOLONE 40 MG INJ CPT-4: J1030 04/17/2013 TRIAMCINOLONE ACET INJ NOS CPT-4: J3301 04/17/2013 URINALYSIS NONAUTO W/O SCOPE CPT-4: 41603 04/06/2013 URINE CULTURE/ COLONY COUNT CPT-4: 04346 04/06/2013 PRESCRIP TRANSMIT VIA ERX SY CPT-4: G8553 04/06/2013 KETOROLAC TROMETHAMINE INJ CPT-4: J1885 06/25/2012 PROMETHAZINE HCL INJECTION CPT-4: J2550 06/25/2012 THER/PROPH/DIAG INJ SC/IM CPT-4: 14019 06/25/2012 THER/PROPH/DIAG INJ SC/IM CPT-4: 86016 06/24/2012 METHYLPREDNISOLONE 40 MG INJ CPT-4: J1030 06/24/2012 TRIAMCINOLONE ACET INJ NOS CPT-4: J3301 06/24/2012 URINE CULTURE/ COLONY COUNT CPT-4: 76518 06/24/2012 THER/PROPH/DIAG INJ SC/IM CPT-4: 91794 05/20/2012 KETOROLAC TROMETHAMINE INJ CPT-4: J1885 05/20/2012 THER/PROPH/DIAG INJ SC/IM CPT-4: 16534 05/20/2012 PROMETHAZINE HCL INJECTION CPT-4: J2550 05/20/2012 DRAIN/INJECT JOINT/BURSA CPT-4: 49757 02/13/2012 METHYLPREDNISOLONE 40 MG INJ CPT-4: J1030 02/13/2012 TRIAMCINOLONE ACET INJ NOS CPT-4: J3301 02/13/2012 THER/PROPH/DIAG INJ SC/IM CPT-4: 93173 11/14/2011 METHYLPREDNISOLONE 40 MG INJ CPT-4: J1030 11/14/2011 TRIAMCINOLONE ACET INJ NOS CPT-4: J3301 11/14/2011 THER/PROPH/DIAG INJ SC/IM CPT-4: 82645 09/12/2011 KETOROLAC TROMETHAMINE INJ CPT-4: J1885 09/12/2011 THER/PROPH/DIAG INJ SC/IM CPT-4: 67135 08/09/2011 METHYLPREDNISOLONE 40 MG INJ CPT-4: J1030 08/09/2011 TRIAMCINOLONE ACET INJ NOS CPT-4: J3301 08/09/2011 URINE CULTURE/ COLONY COUNT CPT-4: 06913 07/03/2011 URINE CULTURE/ COLONY COUNT CPT-4: 77832 06/04/2011 THER/PROPH/DIAG INJ SC/IM CPT-4: 37526 05/03/2011 METHYLPREDNISOLONE 40 MG INJ CPT-4: J1030 05/03/2011 TRIAMCINOLONE ACET INJ NOS CPT-4: J3301 05/03/2011 URINALYSIS NONAUTO W/O SCOPE CPT-4: 00974 01/24/2011 URINE CULTURE/ COLONY COUNT CPT-4: 65907 01/24/2011 FLUZONE, 5ML (Medicare) CPT-4: Q2038 01/02/2011 ADMIN INFLUENZA VIRUS VAC CPT-4: G0008 01/02/2011 ASSAY, GLUCOSE, BLOOD QUANT CPT-4: 03273 12/07/2010 URINE CULTURE/ COLONY COUNT CPT-4: 18959 11/02/2010 THER/PROPH/DIAG INJ SC/IM CPT-4: 34550 10/18/2010 METHYLPREDNISOLONE 40 MG INJ CPT-4: J1030 10/18/2010 TRIAMCINOLONE ACET INJ NOS CPT-4: J3301 10/18/2010 TRIAMCINOLONE ACET INJ NOS CPT-4: J3301 05/11/2010 METHYLPREDNISOLONE 40 MG INJ CPT-4: J1030 05/11/2010 THER/PROPH/DIAG INJ SC/IM CPT-4: 74290 05/11/2010 TRIAMCINOLONE ACET INJ NOS CPT-4: J3301 02/09/2010 METHYLPREDNISOLONE 40 MG INJ CPT-4: J1030 02/09/2010 THER/PROPH/DIAG INJ SC/IM CPT-4: 57675 02/09/2010 MD SERVICE REQUIRED FOR PMD CPT-4: G0372 02/09/2010 FLU VACCINE 3 YRS & > IM UP 64 CPT-4: 70798 0 PNEUMOCOCCAL VACC 23 [place] IM CPT-4: 60194 12/07/2009 ADMIN INFLUENZA VIRUS VAC CPT-4: G0008 12/07/2009 ADMIN PNEUMOCOCCAL VACCINE CPT-4: G0009 12/07/2009 TRIAMCINOLONE ACET INJ NOS CPT-4: J3301 05/26/2009 THER/PROPH/DIAG INJ SC/IM CPT-4: 16307 05/26/2009 METHYLPREDNISOLONE 80 MG INJ CPT-4: J1040 [...] 1: 114/72 Code: 8480-6 BMI: 37.8 Code: 33183-0 Heart Rate 1: 72 bpm Height: 5'3" [...] 1: 106/68 Code: 8480-6 BMI: 35.7 Code: 70219-3 Heart Rate 1: 72 bpm Height: 5'4" Respiratory Rate: 20 bpm SpO2: 98% Tempera ture: 36.7 (C) / 98.0 (F) Weight: 208 lbs 04/16/2018 Blood Pressure 1: 132/82 Code: 8480-6 BMI: 37.9 Code: 29969-8 Heart Rate 1: 72 bpm Height: 5'4" Respiratory Rate: 20 bpm SpO2: 96% Tempera ture: 37.1 (C) / 98.8 (F) Weight: 221 lbs 04/01/2018 Blood Pressure 1: 150/90 Code: 8480-6 Heart Rate 1: 72 bpm Respiratory Rate: 22 bpm SpO2: 95% Temperature: 36.4 (C) / 97.6 (F) We ight: 216 lbs 03/06/2018 Blood Pressure 1: 126/78 Code: 8480-6 BMI: 37.4 Code: 59387-0 Heart Rate 1: 68 bpm Height: 5'4" [...] ight: 222 lbs 12/25/2017 BMI: 37.8 Code: 46779-0 Heart Rate 1: 76 bpm Height: 5 '4" Respiratory Rate: 20 bpm SpO2: 96% Temperature: 37.3 (C) / 99.2 (F) Weight: 220 lbs 12/17/2017 Blood Pressure 1: 132/78 Code: 8480-6 BMI: 37.2 Code: 20572-1 Heart Rate 1: 88 bpm Height: 5'4" Respiratory Rate: 20 bpm SpO2: 96% Tempera ture: 37.3 (C) / 99.2 (F) Weight: 217 lbs 10/30/2017 Blood Pressure 1: 114/68 Code: 8480-6 BMI: 36.4 Code: 53438-1 Heart Rate 1: 72 bpm Height: 5'4" Respiratory Rate: 22 bpm SpO2: 96% Tempera ture: 36.8 (C) / 98.2 (F) Weight: 212 lbs 10/23/2017 Blood Pressure 1: 124/78 Code: 8480-6 Heart Rate 1: 72 bpm Respiratory Rate: 24 bpm SpO2: 94% Temperature: 36.6 (C) / 97.9 (F) We ight: 212 lbs 09/17/2017 Blood Pressure 1: 128/82 Code: 8480-6 BMI: 37.4 Code: 42954-0 Heart Rate 1: 72 bpm Height: 5'4" Respiratory Rate: 20 bpm SpO2: 96% Tempera ture: 37.0 (C) / 98.6 (F) Weight: 218 lbs 07/19/2017 Blood Pressure 1: 136/84 Code: 8480-6 BMI: 36.6 Code: 03532-9 Heart Rate 1: 88 bpm Height: 5'4" Respiratory Rate: 20 bpm SpO2: 97% Tempera ture: 36.7 (C) / 98.0 (F) Weight: 213 lbs 05/29/2017 Blood Pressure 1: 136/82 Code: 8480-6 BMI: 36.7 Code: 43728-7 Heart Rate 1: 72 bpm Height: 5'4" Respiratory Rate: 20 bpm SpO2: 97% Tempera ture: 36.9 (C) / 98.4 (F) Weight: 214 lbs 05/07/2017 Blood Pressure 1: 122/80 Code: 8480-6 BMI: 37.1 Code: 04940-7 Heart Rate 1: 80 bpm Height: 5'4" Respiratory Rate: 24 bpm SpO2: 96% Tempera ture: 36.1 (C) / 97.0 (F) Weight: 216 lbs 03/18/2017 BMI: 36.7 Code: 09650-5 Heart Rate 1: 80 bpm Height: 5 '4" Respiratory Rate: 22 bpm SpO2: 95% Temperature: 36.9 (C) / 98.4 (F) Weight: 214 lbs 02/27/2017 Blood Pressure 1: 146/94 Code: 8480-6 BMI: 36.6 Code: 67634-2 Heart Rate 1: 76 bpm Height: 5'4" Respiratory Rate: 22 bpm SpO2: 97% Tempera ture: 36.6 (C) / 97.9 (F) Weight: 213 lbs 02/22/2017 Blood Pressure 1: 126/90 Code: 8480-6 BMI: 36.4 Code: 89954-6 Heart Rate 1: 84 bpm Height: 5'4" Respiratory Rate: 22 bpm SpO2: 95% Tempera ture: 36.9 (C) / 98.4 (F) Weight: 212 lbs 01/23/2017 Blood Pressure 1: 146/82 Code: 8480-6 BMI: 37.6 Code: 26322-3 Heart Rate 1: 96 bpm Height: 5'4" Respiratory Rate: 20 bpm SpO2: 96% Tempera ture: 36.9 (C) / 98.4 (F) Weight: 219 lbs 12/20/2016 Blood Pressure 1: 126/70 Code: 8480-6 BMI: 37.2 Code: 46332-6 Heart Rate 1: 76 bpm Height: 5'4" Respiratory Rate: 22 bpm SpO2: 95% Tempera ture: 36.6 (C) / 97.8 (F) Weight: 217 lbs 10/08/2016 Blood Pressure 1: 128/82 Code: 8480-6 BMI: 36.9 Code: 92910-6 Heart Rate 1: 76 bpm Height: 5'4" Respiratory Rate: 20 bpm SpO2: 95% Tempera ture: 37.0 (C) / 98.6 (F) Weight: 215 lbs 09/19/2016 Blood Pressure 1: 144/78 Code: 8480-6 BMI: 37.8 Code: 03545-1 Heart Rate 1: 76 bpm Height: 5'4" Respiratory Rate: 22 bpm SpO2: 95% Tempera ture: 37.0 (C) / 98.6 (F) Weight: 220 lbs 08/20/2016 Blood Pressure 1: 140/86 Code: 8480-6 BMI: 37.4 Code: 81643-1 Heart Rate 1: 80 bpm Height: 5'4" Respiratory Rate: 20 bpm SpO2: 95% Tempera ture: 36.9 (C) / 98.4 (F) Weight: 218 lbs 06/19/2016 Blood Pressure 1: 124 Code: 8480-6 BMI: 37.8 Code: 54512-7 Heart Rate 1: 74 bpm Height: 5'4" Respiratory Rate: 24 bpm SpO2: 96% Tempera ture: 36.9 (C) / 98.4 (F) Weight: 220 lbs 06/04/2016 Blood Pressure 1: 124/78 Code: 8480-6 BMI: 38.8 Code: 23902-8 Heart Rate 1: 72 bpm Height: 5'4" Respiratory Rate: 24 bpm SpO2: 95% Tempera ture: 36.8 (C) / 98.2 (F) Weight: 226 lbs 05/02/2016 Blood Pressure 1: 136/90 Code: 8480-6 BMI: 37.6 Code: 47444-3 Heart Rate 1: 72 bpm Height: 5'4" Respiratory Rate: 24 bpm SpO2: 96% Tempera ture: 36.9 (C) / 98.4 (F) Weight: 219 lbs 04/03/2016 Blood Pressure 1: 126/78 Code: 8480-6 BMI: 38.1 Code: 41353-3 Heart Rate 1: 72 bpm Height: 5'4" Respiratory Rate: 22 bpm SpO2: 94% Tempera ture: 36.9 (C) / 98.4 (F) Weight: 222 lbs 02/29/2016 Blood Pressure 1: 132/78 Code: 8480-6 Heart Rate 1: 78 bpm Height: Respiratory Rate: 24 bpm SpO2: 95% Temperature: 36.4 (C) / 97.6 (F) We ight: 02/02/2016 Blood Pressure 1: 124/78 Code: 8480-6 BMI: 37.6 Code: 00063-0 Heart Rate 1: 76 bpm Height: 5'4" Respiratory Rate: 20 bpm SpO2: 95% Tempera ture: 36.8 (C) / 98.2 (F) Weight: 219 lbs 01/05/2016 Blood Pressure 1: 126/70 Code: 8480-6 BMI: 37.1 Code: 21873-1 Heart Rate 1: 76 bpm Height: 5'4" Respiratory Rate: 20 bpm Temperature: 36 .6 (C) / 97.8 (F) Weight: 216 lbs 12/05/2015 Blood Pressure 1: 126/72 Code: 8480-6 BMI: 36.9 Code: 55580-9 Heart Rate 1: 92 bpm Height: 5'4" Respiratory Rate: 20 bpm Temperature: 36 .7 (C) / 98.1 (F) Weight: 215 lbs 10/26/2015 Blood Pressure 1: 142/80 Code: 8480-6 BMI: 36.4 Code: 26296-3 Heart Rate 1: 82 bpm Height: 5'4" Respiratory Rate: 24 bpm SpO2: 92% Tempera ture: 35.9 (C) / 96.7 (F) Weight: 212 lbs 10/05/2015 Blood Pressure 1: 136/82 Code: 8480-6 Heart Rate 1: 80 bpm Respiratory Rate: 18 bpm SpO2: 98% Temperature: 35.7 (C) / 96.3 (F) We ight: 214 lbs 09/15/2015 Blood Pressure 1: 116/80 Code: 8480-6 BMI: 34.6 Code: 73622-1 Heart Rate 1: 76 bpm Height: 5'6" Respiratory Rate: 20 bpm Temperature: 36 .6 (C) / 97.9 (F) Weight: 211 lbs 08/24/2015 Blood Pressure 1: 124/80 Code: 8480-6 BMI: 34.1 Code: 46152-7 Heart Rate 1: 68 bpm Height: 5'6" Respiratory Rate: 20 bpm Temperature: 36 .8 (C) / 98.3 (F) Weight: 208 lbs 07/05/2015 Blood Pressure 1: 114/78 Code: 8480-6 BMI: 33.9 Code: 71321-4 Heart Rate 1: 80 bpm Height: 5'6" Respiratory Rate: 20 bpm Temperature: 36 .6 (C) / 97.9 (F) Weight: 207 lbs 06/06/2015 Blood Pressure 1: 122/78 Code: 8480-6 BMI: 34.1 Code: 78589-8 Heart Rate 1: 76 bpm Height: 5'6" Respiratory Rate: 24 bpm SpO2: 96% Tempera ture: 36.4 (C) / 97.6 (F) Weight: 208 lbs 05/23/2015 Blood Pressure 1: 124/78 Code: 8480-6 Heart Rate 1: 76 bpm Respiratory Rate: 24 bpm SpO2: 93% Temperature: 36.8 (C) / 98.2 (F) We ight: 212 lbs 05/05/2015 Blood Pressure 1: 136/80 Code: 8480-6 BMI: 35.4 Code: 16226-4 Heart Rate 1: 76 bpm Height: 5'6" Respiratory Rate: 28 bpm Temperature: 37 .0 (C) / 98.6 (F) Weight: 216 lbs 03/30/2015 Blood Pressure 1: 132/86 Code: 8480-6 BMI: 35.2 Code: 96353-9 Heart Rate 1: 84 bpm Height: 5'6" Respiratory Rate: 24 bpm Temperature: 36 .7 (C) / 98.0 (F) Weight: 215 lbs 02/03/2015 Blood Pressure 1: 122/74 Code: 8480-6 BMI: 35.7 Code: 04256-1 Heart Rate 1: 84 bpm Height: 5'6" Respiratory Rate: 20 bpm Temperature: 36 .9 (C) / 98.5 (F) Weight: 218 lbs 12/29/2014 Blood Pressure 1: 132/80 Code: 8480-6 BMI: 35.1 Code: 48815-5 Heart Rate 1: 80 bpm Height: 5'6" Respiratory Rate: 20 bpm Temperature: 36 .6 (C) / 97.8 (F) Weight: 214 lbs 09/02/2014 Blood Pressure 1: 128/92 Code: 8480-6 BMI: 34.7 Code: 81862-4 Heart Rate 1: 84 bpm Height: 5'6" Respiratory Rate: 26 bpm Temperature: 36 .8 (C) / 98.2 (F) Weight: 212 lbs 08/25/2014 Blood Pressure 1: 124/80 Code: 8480-6 BMI: 34.7 Code: 52957-1 Heart Rate 1: 78 bpm Height: 5'6" Respiratory Rate: 22 bpm SpO2: 97% Tempera ture: 36.6 (C) / 97.8 (F) Weight: 212 lbs 04/01/2014 Blood Pressure 1: 142/84 Code: 8480-6 BMI: 34.4 Code: 89354-6 Heart Rate 1: 74 bpm Height: 5'5" Respiratory Rate: 20 bpm Temperature: 36 .4 (C) / 97.6 (F) Weight: 207 lbs 03/16/2014 Blood Pressure 1: 142/90 Code: 8480-6 BMI: 34.6 Code: 87674-3 Heart Rate 1: 76 bpm Height: 5'5" Respiratory Rate: 24 bpm Temperature: 36 .5 (C) / 97.7 (F) Weight: 208 lbs 03/09/2014 Blood Pressure 1: 116/70 Code: 8480-6 BMI: 35.3 Code: 30709-0 Heart Rate 1: 72 bpm Height: 5'5" [...] 1: 128/86 Code: 8480-6 BMI: 34.3 Code: 55066-1 Heart Rate 1: 84 bpm Height: 5'5" Respiratory Rate: 20 bpm Temperature: 36 .7 (C) / 98.0 (F) Weight: 206 lbs 12/23/2013 Blood Pressure 1: 122/70 Code: 8480-6 BMI: 34.3 Code: 94498-9 Heart Rate 1: 68 bpm Height: 5'5" Respiratory Rate: 20 bpm Temperature: 36 .8 (C) / 98.2 (F) Weight: 206 lbs 10/05/2013 Blood Pressure 1: 118/76 Code: 8480-6 BMI: 34.1 Code: 47790-1 Heart Rate 1: 68 bpm Height: 5'5" Respiratory Rate: 20 bpm SpO2: 98% Tempera ture: 36.6 (C) / 97.9 (F) Weight: 205 lbs 08/04/2013 Blood Pressure 1: 126/82 Code: 8480-6 BMI: 33.3 Code: 93973-7 Heart Rate 1: 76 bpm Height: 5'5" Respiratory Rate: 20 bpm Temperature: 36 .8 (C) / 98.2 (F) Weight: 200 lbs 07/03/2013 Blood Pressure 1: 124/82 Code: 8480-6 BMI: 33.3 Code: 68316-8 Heart Rate 1: 72 bpm Height: 5'5" Respiratory Rate: 22 bpm Temperature: 36 .1 (C) / 97.0 (F) Weight: 200 lbs 05/27/2013 Blood Pressure 1: 126/82 Code: 8480-6 Heart Rate 1: 74 bpm Respiratory Rate: 20 bpm Temperature: 36.0 (C) / 96.8 (F) Weight: 199 lbs 04/06/2013 Blood Pressure 1: 118/80 Code: 8480-6 BMI: 35.2 Code: 98315-9 Heart Rate 1: 80 bpm Height: 5'4" Respiratory Rate: 20 bpm Temperature: 37 .4 (C) / 99.3 (F) Weight: 205 lbs 11/10/2012 Blood Pressure 1: 128/82 Code: 8480-6 Heart Rate 1: 84 bpm Respiratory Rate: 20 bpm Temperature: 36.7 (C) / 98.0 (F) Weight: 199 lbs 09/02/2012 Blood Pressure 1: 116/82 Code: 8480-6 BMI: 34.2 Code: 47278-6 Heart Rate 1: 88 bpm Height: 5'4" Respiratory Rate: 22 bpm Temperature: 36 .6 (C) / 97.8 (F) Weight: 199 lbs 08/04/2012 Blood Pressure 1: 128/74 Code: 8480-6 BMI: 34.0 Code: 26009-1 Heart Rate 1: 92 bpm Height: 5'4" Respiratory Rate: 20 bpm Temperature: 36 .4 (C) / 97.5 (F) Weight: 198 lbs 07/21/2012 Blood Pressure 1: 124/86 Code: 8480-6 Heart Rate 1: 116 bpm Respiratory Rate: 24 bpm Temperature: 36.8 (C) / 98.2 (F) 07/02/2012 Blood Pressure 1: 116/ Code: 8480-6 BMI: 33.6 Code: 91038-3 Heart Rate 1: 76 bpm Height: 5'4" Respiratory Rate: 20 bpm Temperature: 36 .8 (C) / 98.3 (F) Weight: 196 lbs 06/24/2012 Blood Pressure 1: 124/80 Code: 8480-6 BMI: 34.3 Code: 31441-4 Heart Rate 1: 72 bpm Height: 5'4" SpO2: 96% Temperature: 36.3 (C) / 97.3 (F) Weight: 200 lbs 05/20/2012 Blood Pressure 1: 11688 Code: 8480-6 BMI: 33.8 Code: 85771-1 Heart Rate 1: 80 bpm Height: 5'4" Respiratory Rate: 22 bpm Temperature: 36 .9 (C) / 98.4 (F) Weight: 197 lbs 05/08/2012 Blood Pressure 1: 128/86 Code: 8480-6 BMI: 33.8 Code: 43192-7 Heart Rate 1: 76 bpm Height: 5'4" Respiratory Rate: 26 bpm SpO2: 95% Tempera ture: 36.1 (C) / 97.0 (F) Weight: 197 lbs 04/22/2012 Blood Pressure 1: 106/64 Code: 8480-6 BMI: 33.8 Code: 38294-2 Heart Rate 1: 70 bpm Height: 5'4" Temperature: 36.1 (C) / 97.0 (F) Weight: 197 lbs 02/13/2012 Blood Pressure 1: 126/82 Code: 8480-6 BMI: 34.7 Code: 68931-5 Heart Rate 1: 64 bpm Height: 5'4" Respiratory Rate: 20 bpm Temperature: 36 .6 (C) / 97.8 (F) Weight: 202 lbs 01/28/2012 Blood Pressure 1: 116/80 Code: 8480-6 BMI: 34.7 Code: 50091-4 Heart Rate 1: 76 bpm Height: 5'4" Respiratory Rate: 20 bpm Temperature: 36 .8 (C) / 98.3 (F) Weight: 202 lbs 12/26/2011 Blood Pressure 1: 132/82 Code: 8480-6 BMI: 36.0 Code: 41849-7 Heart Rate 1: 68 bpm Height: 5'4" Respiratory Rate: 22 bpm Temperature: 36 .7 (C) / 98.0 (F) Weight: 210 lbs 11/14/2011 Blood Pressure 1: 124/80 Code: 8480-6 BMI: 36.4 Code: 36431-9 Heart Rate 1: 76 bpm Height: 5'4" Respiratory Rate: 20 bpm Temperature: 36 .8 (C) / 98.2 (F) Weight: 212 lbs 09/12/2011 Blood Pressure 1: 108/74 Code: 8480-6 BMI: 37.1 Code: 20422-3 Heart Rate 1: 72 bpm Height: 5'4" Respiratory Rate: 20 bpm Temperature: 37 .0 (C) / 98.6 (F) Weight: 216 lbs 08/15/2011 Blood Pressure 1: 122/80 Code: 8480-6 BMI: 36.9 Code: 73866-0 Heart Rate 1: 76 bpm Height: 5'4" Respiratory Rate: 20 bpm Temperature: 36 .2 (C) / 97.1 (F) Weight: 215 lbs 08/09/2011 Blood Pressure 1: 112/78 Code: 8480-6 BMI: 36.9 Code: 46629-9 Heart Rate 1: 68 bpm Height: 5'4" Respiratory Rate: 20 bpm Temperature: 36 .7 (C) / 98.0 (F) Weight: 215 lbs 07/03/2011 Blood Pressure 1: 140/94 Code: 8480-6 BMI: 36.2 Code: 13345-7 Heart Rate 1: 68 bpm Height: 5'4" Temperature: 36.0 (C) / 96.8 (F) Weight: 211 lbs 06/04/2011 Blood Pressure 1: 124/70 Code: 8480-6 BMI: 36.7 Code: 12017-8 Heart Rate 1: 68 bpm Height: 5'4" Respiratory Rate: 20 bpm Temperature: 36 .6 (C) / 97.9 (F) Weight: 214 lbs 05/03/2011 Blood Pressure 1: 130/76 Code: 8480-6 BMI: 36.4 Code: 07710-9 Heart Rate 1: 74 bpm Height: 5'5" Temperature: 36.2 (C) / 97.2 (F) Weight: 219 lbs 04/05/2011 Blood Pressure 1: 124/86 Code: 8480-6 BMI: 35.9 Code: 21857-2 Heart Rate 1: 76 bpm Height: 5'6" Respiratory Rate: 22 bpm Temperature: 36 .3 (C) / 97.3 (F) Weight: 219 lbs 03/08/2011 Blood Pressure 1: 112/78 Code: 8480-6 BMI: 35.1 Code: 27277-1 Heart Rate 1: 80 bpm Height: 5'6" Respiratory Rate: 26 bpm Temperature: 36 .9 (C) / 98.4 (F) Weight: 214 lbs 01/24/2011 Blood Pressure 1: 110/82 Code: 8480-6 BMI: 35.6 Code: 99808-6 Heart Rate 1: 80 bpm Height: 5'6" Temperature: 36.1 (C) / 97.0 (F) Weight: 217 lbs 01/02/2011 Blood Pressure 1: 106/72 Code: 8480-6 BMI: 35.6 Code: 45060-6 Heart Rate 1: 76 bpm Height: 5'6" [...] 1: 120/74 Code: 8480-6 BMI: 35.9 Code: 06423-5 Heart Rate 1: 72 bpm Height: 5'5" Temperature: 36.3 (C) / 97.4 (F) Weight: 216 lbs 09/19/2010 Blood Pressure 1: 124/80 Code: 8480-6 BMI: 35.4 Code: 17343-5 Heart Rate 1: 76 bpm Height: 5'5" [...] 1: 122/78 Code: 8480-6 BMI: 37.4 Code: 30009-5 Heart Rate 1: 84 bpm Height: 5'5" [...] 10/30/2017 follow up 10/23/2017 Hospital fwup from [facility] Annual Checkup 09/17/2017 Wellness Physical fo [...] follow up 10/26/2015 ER visit from at [facility] for COPD Exacerbation follow up 10/05/2015 ER Visit gait abnormality 09/15/2015 Patient requesting kelly pineda paperwork to be filled out disturbances of thinking 08/24/2015 follow up 07/05/2015 4wk fwup follow up 06/06/2015 Hospital fw cough 05/23/2015 follow up 05/05/2015 dyspnea 03/30/2015 [facility] needs new orde r for O2 abdominal pain 02/03/2015 cyst 12/29/2014 vs abscess follow up 09/02/2014 [facility] fw headache 08/25/2014 facial drooping follow up 04/01/2014 ER follow up 03/16/2014 1wk fwup follow up 03/09/2014 1mo fwup and bronchi tis fwup follow up 03/03/2014 2 day follow up 03/01/2014 ER follow up 02/09/2014 Hospital [facility] gastroesophageal reflux 12/23/2013 painful urination [...] up 10/18/[address] Marcela sagastume w [place], having increased allergy symptoms. Would like steroid [...] 1 month f/u follow up 12/07/2009 from long-term [facility], done with PT--finished about 2wks ago [...] weakness[ICD10: M62.81] Belia BRUNSON Bushra Mayda FRANKLIN [facility] CPT-4: 56560 05/13/2019 ([id number]) OFFICE/OUTPATIENT VISIT EST Diagnosis: Stridor[ICD10: R06.1] Diagnosis: COUGH[ICD10: R05] Belia BRUNSON BushraMayda [place] [employer] CPT-4: 91475 05/06/2019 ([id number]) OFFICE/OUTPATIENT VISIT EST Diagnosis: Stridor[ICD10: R06.1] Diagnosis: Muscle, jerky movements (uncontrolled)[ICD10: G25.5] Belia BRUNSON BushraMayda [place] [employer] CPT-4: 56333 04/29/2019 ([id number]) OFFICE/OUTPATIENT VISIT EST Diagnosis: Upper respiratory infection[ICD10: J06.9] Diagnosis: Flank pain[ICD10: R10.9] Diagnosis: Weight gain[ICD10: R63.5] Pattie Sotomayor BELIA BushraMayda YANDEL KATINA [employer] CPT-4: 86934 04/16/2019 ([id number]) OFFICE/OUTPATIENT VISIT EST Diagnosis: Generalized pruritus[ICD10: L29.9] Belia Shi [facility] [employer] [facility] [employer] CPT-4: 83189 04/08/2019 ([id number]) OFFICE/OUTPATIENT VISIT EST Diagnosis: Acute bursitis of left shoulder[ICD10: M75.52] Diagnosis: Cervicalgia[ICD10: M54.2] Diagnosis: Chest wall pain[ICD10: R07.89] Belia BRUNSON Bushra Mayda [place] [employer] [facility] [employer] CPT-4: 39801 01/22/2019 ([id number]) OFFICE/OUTPATIENT VISIT EST Diagnosis: Abdominal pain[ICD10: R10.9] Diagnosis: Pyelonephritis[ICD10: N12] Pattie DOMINGUEZ Pond5 [facility] CPT-4: 66847 01/07/2019 ([id number]) OFFICE/OUTPATIENT VISIT EST Diagnosis: Low back pain[ICD10: M54.5] Diagnosis: Left lumbar radiculopathy[ICD10: M54.16] Diagnosis: Left flank pain[ICD10: R10.9] Diagnosis: Left lower quadrant pain[ICD10: R10.32] Diagnosis: FLU VACCINE[ICD10: Z23] Belia FREDERICK [employer] [facility] [employer] CPT-4: 80209 12/24/2018 ([id number]) OFFICE/OUTPATIENT VISIT EST Diagnosis: Migraine, unspecified, not intractable, without status migrainosus[ICD10: G43.909] Diagnosis: Fibromyalgia[ICD10: M79.7] Belia DOMINGUEZ [address] [facility] CPT-4: 38559 11/20/2018 ([id number]) OFFICE/OUTPATIENT VISIT EST Diagnosis: Migraine, unspecified, intractable, without status migrainosus[ICD10: G43.919] Diagnosis: Acute sinusitis, unspecified[ICD10: J01.90] Pattie REID DO [facility] CPT-4: 69892 11/04/2018 ([id number]) OFFICE/OUTPATIENT VISIT EST Diagnosis: Pain in left wrist[ICD10: M25.532] Diagnosis: Other dorsalgia[ICD10: M54.89] Pattie REID [address] [facility] CPT-4: 26285 09/08/2018 ([id number]) OFFICE/OUTPATIENT VISIT EST Diagnosis: Acute stress reaction[ICD10: F43.0] Diagnosis: Pruritus, unspecified[ICD10: L29.9] 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, 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] Belia REID [employer] CPT-4: 62669 08/20/2018 ([id number]) OFFICE/OUTPATIENT VISIT EST Diagnosis: Hypotension due to drugs[ICD10: I95.2] Diagnosis: Paroxysmal atrial fibrillation[ICD10: I48.0] Diagnosis: Localized edema[ICD10: R60.0] Belia REID DO [facility] CPT-4: 13133 06/19/2018 ([id number]) OFFICE/OUTPATIENT VISIT EST Diagnosis: Generalized hyperhidrosis[ICD10: R61] Diagnosis: Essential (primary) hypertension[ICD10: I10] Diagnosis: Supraventricular tachycardia[ICD10: I47.1] Belia REID DO [facility] CPT-4: 95668 06/09/2018 ([id number]) OFFICE/OUTPATIENT VISIT EST Diagnosis: Stridor[ICD10: R06.1] Diagnosis: Dependence on supplemental oxygen[ICD10: Z99.81] Diagnosis: Weakness[ICD10: R53.1] Diagnosis: Supraventricular tachycardia[ICD10: I47.1] Belia REID DO [facility] CPT-4: 15236 05/21/2018 ([id number]) OFFICE/OUTPATIENT VISIT EST Diagnosis: Cervical disc disorder with radiculopathy, unspecified cervical region[ICD10: M50.10] Belia REID DO [facility] CPT-4: 65266 04/16/2018 ([id number]) OFFICE/OUTPATIENT VISIT EST Diagnosis: Migraine, unspecified, intractable, without status migrainosus[ICD10: G43.919] Diagnosis: Fibromyalgia[ICD10: M79.7] Pattie DOMINGUEZ [facility] CPT-4: 82750 04/01/2018 ([id number]) NURSE/OUTPATIENT VISIT EST Diagnosis: Hematuria, unspecified[ICD10: R31.9] Diagnosis: Dysuria[ICD10: R30.0] Belia REID DO [facility] CPT-4: 08000 03/17/2018 ([id number]) OFFICE/OUTPATIENT VISIT EST Diagnosis: Erythema intertrigo[ICD10: L30.4] Diagnosis: Chronic obstructive pulmonary disease with (acute) exacerbation[ICD10: J44.1] Diagnosis: Type 2 diabetes mellitus with hyperglycemia[ICD10: E11.65] Belia REID DO [facility] CPT-4: 33317 03/06/2018 ([id number]) OFFICE/OUTPATIENT VISIT EST Diagnosis: Cervicalgia[ICD10: M54.2] Pattie AMBRIZ [facility] CPT-4: 05666 02/05/2018 ([id number]) OFFICE/OUTPATIENT VISIT EST Diagnosis: Candidiasis of skin and nail[ICD10: B37.2] Diagnosis: Cervicalgia[ICD10: M54.2] Pattie AMBRIZ [facility] CPT-4: 23972 01/20/2018 ([id number]) OFFICE/OUTPATIENT VISIT EST Diagnosis: Pain in thoracic spine[ICD10: M54.6] Diagnosis: Radiculopathy, thoracic region[ICD10: M54.14] Belia REID [facility] CPT-4: 49416 12/25/2017 ([id number]) OFFICE/OUTPATIENT VISIT EST Diagnosis: Pain in thoracic spine[ICD10: M54.6] Diagnosis: Other muscle spasm[ICD10: M62.838] Diagnosis: FLU VACCINE[ICD10: Z23] Diagnosis: PNEUMOCOCCAL VACCINE[ICD10: Z23] Belia REID [facility] CPT-4: 69723 12/17/2017 ([id number]) OFFICE/OUTPATIENT VISIT EST Diagnosis: Chronic obstructive pulmonary disease with (acute) exacerbation[ICD10: J44.1] Belia REID [facility] CPT- 4: 39493 10/30/2017 ([id number]) OFFICE/OUTPATIENT VISIT EST Diagnosis: Chronic obstructive pulmonary disease with acute lower respiratory infection[ICD10: J44.0] Diagnosis: Mild intermittent asthma with (acute) exacerbation[ICD10: J45.21] Belia REID [facility] CPT-4: 51013 10/23/2017 ([id number]) NURSE/OUTPATIENT VISIT EST Diagnosis: Migraine, unspecified, not intractable, without status migrainosus[ICD10: G43.909] Belia REID [facility] CPT - 4: 30342 08/26/2017 ([id number]) OFFICE/OUTPATIENT VISIT EST Diagnosis: Urinary tract infection, site not specified[ICD10: N39.0] Diagnosis: Encounter for screening for osteoporosis[ICD10: Z13.820] Diagnosis: Encounter for screening mammogram for malignant neoplasm of breast[ICD10: Z12.31] Diagnosis: Acute bronchitis, unspecified[ICD10: J20.9] Pattie REID DO [facility] CPT-4: 26768 07/19/2017 ([id number]) OFFICE/OUTPATIENT VISIT EST Diagnosis: Rash and other nonspecific skin eruption[ICD10: R21] Pattie REID DO [facility] CPT-4: 27862 05/29/2017 ([id number]) OFFICE/OUTPATIENT VISIT EST Diagnosis: Diarrhea, unspecified[ICD10: R19.7] Diagnosis: Tinea corporis[ICD10: B35.4] Diagnosis: Tinea cruris[ICD10: B35.6] Diagnosis: Migraine, unspecified, not intractable, without status migrainosus[ICD10: G43.909] Belia REID P[address] [facility] CPT - 4: 72635 05/07/2017 ([id number]) OFFICE/OUTPATIENT VISIT EST Diagnosis: Stridor[ICD10: R06.1] Diagnosis: Chronic obstructive pulmonary disease with (acute) exacerbation[ICD10: J44.1] Belia REID DO [facility] CPT- 4: 02027 03/18/2017 ([id number]) OFFICE/OUTPATIENT VISIT EST Diagnosis: Type 2 diabetes mellitus with hyperglycemia[ICD10: E11.65] Belia REID DO [facility] CPT-4: 92599 02/27/2017 OFFICE/OUTPATIENT VISIT EST Diagnosis: Type 2 diabetes mellitus with hyperglycemia[ICD10: E11.65] Pattie REID DO [facility] CPT-4: 39340 02/22/2017 ([id number]) OFFICE/OUTPATIENT VISIT EST Diagnosis: Urinary tract infection, site not specified[ICD10: N39.0] Diagnosis: Pneumonia, unspecified organism[ICD10: J18.9] Diagnosis: Type 2 diabetes mellitus with hyperglycemia[ICD10: E11.65] Belia REID DO [facility] CPT-4: 07069 01/23/2017 ([id number]) OFFICE/OUTPATIENT VISIT EST Diagnosis: Type 2 diabetes mellitus with hyperglycemia[ICD10: E11.65] Diagnosis: Localized edema[ICD10: R60.0] Diagnosis: PNEUMOCOCCAL VACCINE[ICD10: Z23] Diagnosis: FLU VACCINE[ICD10: Z23] Belia FREDERICK [facility] CPT-4: 67227 12/20/2016 OFFICE/OUTPATIENT VISIT EST Diagnosis: Pain in thoracic spine[ICD10: M54.6] Diagnosis: Low back pain[ICD10: M54.5] Diagnosis: Cervicalgia[ICD10: M54.2] Diagnosis: Cough[ICD10: R05] Celeste Ferreira BELIA REID [facility] CPT-4: 35487 10/08/2016 ([id number]) OFFICE/OUTPATIENT VISIT EST Diagnosis: Primary insomnia[ICD10: F51.01] Diagnosis: Migraine, unspecified, not intractable, without status migrainosus[ICD10: G43.909] Diagnosis: Type 2 diabetes mellitus with hyperglycemia[ICD10: E11.65] Belia REID DO [facility] CPT-4: 97587 09/19/2016 ([id number]) OFFICE/OUTPATIENT VISIT EST Diagnosis: Migraine, unspecified, not intractable, without status migrainosus[ICD10: G43.909] Diagnosis: Generalized abdominal pain[ICD10: R10.84] Diagnosis: Cough[ICD10: R05] Belia REID DO [facility] CPT-4: 51588 08/20/2016 ([id number]) OFFICE/OUTPATIENT VISIT EST Diagnosis: Chronic obstructive pulmonary disease, unspecified[ICD10: J44.9] Diagnosis: Stridor[ICD10: R06.1] Belia REID DO [facility] CPT-4: 95511 06/19/2016 ([id number]) OFFICE/OUTPATIENT VISIT EST Diagnosis: Chronic obstructive pulmonary disease, unspecified[ICD10: J44.9] Diagnosis: Personal history of urinary (tract) infections[ICD10: Z87.440] Belia REID [facility] CPT-4: 26420 06/04/2016 ([id number]) OFFICE/OUTPATIENT VISIT EST Diagnosis: Stridor[ICD10: R06.1] Diagnosis: Chronic obstructive pulmonary disease with acute lower respiratory infection[ICD10: J44.0] Diagnosis: Other specified diseases of intestine[ICD10: K63.89] Diagnosis: Cystitis, unspecified without hematuria[ICD10: N30.90] Belia REID [facility] CPT-4: 85897 05/02/2016 ([id number]) OFFICE/OUTPATIENT VISIT EST Diagnosis: Fibromyalgia[ICD10: M79.7] Diagnosis: Urinary tract infection, site not specified[ICD10: N39.0] Belia REID [facility] CPT-4: 55082 04/03/2016 ([id number]) OFFICE/OUTPATIENT VISIT EST Diagnosis: Unspecified asthma, uncomplicated[ICD10: J45.909] Diagnosis: Cough[ICD10: R05] LidiaClariat REID [facility] T-4: 95547 02/29/2016 ([id number]) OFFICE/OUTPATIENT VISIT EST Diagnosis: Migraine, unspecified, intractable, without status migrainosus[ICD10: G43.919] Diagnosis: Urinary tract infection, site not specified[ICD10: N39.0] Belia REID [facility] CPT-4: 47306 02/02/2016 ([id number]) OFFICE/OUTPATIENT VISIT EST Diagnosis: Urinary tract infection, site not specified[ICD10: N39.0] Diagnosis: Unspecified abdominal pain[ICD10: R10.9] Diagnosis: Pain in thoracic spine[ICD10: M54.6] Diagnosis: Type 2 diabetes mellitus with diabetic neuropathic arthropathy[ICD10: E11.610] Belia REID [facility] CPT-4: 44979 12/05/2015 ([id number]) OFFICE/OUTPATIENT VISIT EST Diagnosis: Chronic obstructive pulmonary disease with (acute) exacerbation[ICD10: J44.1] Diagnosis: Migraine, unspecified, not intractable, without status migrainosus[ICD10: G43.909] Lidia CORNELLLINE Yuridia REID DO [facility] CPT -4: 61791 10/26/2015 ([id number]) OFFICE/OUTPATIENT VISIT EST Diagnosis: Hematuria, unspecified[ICD10: R31.9] Diagnosis: Urinary tract infection, site not specified[ICD10: N39.0] Lidia HSUQUELINE Yuridia REID DO [facility] CPT-4: 59837 10/05/2015 OFFICE/OUTPATIENT VISIT EST Diagnosis: Chronic obstructive pulmonary disease, unspecified[ICD10: J44.9] Diagnosis: Muscle weakness (generalized)[ICD10: M62.81] Diagnosis: Polyneuropathy, unspecified[ICD10: G62.9] Diagnosis: Other intervertebral disc degeneration, 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] Diagnosis: Fibromyalgia[ICD10: M79.7] Belia Franklin HSUQUELINE Yuridia DOMINGUEZ [facility] CPT-4: 72664 09/15/2015 ([id number]) OFFICE/OUTPATIENT VISIT EST Diagnosis: Disorientation, unspecified[ICD10: R41.0] Diagnosis: Headache[ICD10: R51] Diagnosis: Paresthesia of skin[ICD10: R20.2] Lidia Hwang KOFFI Paredes Yuridia REID [facility] CPT-4: 59431 08/24/2015 ([id number]) OFFICE/OUTPATIENT VISIT EST Diagnosis: Type 2 diabetes mellitus with hyperglycemia[ICD10: E11.65] Diagnosis: Chronic obstructive pulmonary disease with acute lower respiratory infection[ICD10: J44.0] Belia Yandelisabellaannie HSUBELIA BushraMayda FRANKLIN [facility] CPT-4: 68403 07/05/2015 ([id number]) OFFICE/OUTPATIENT VISIT EST Diagnosis: Mild intermittent asthma with (acute) exacerbation[ICD10: J45.21] Diagnosis: Chronic obstructive pulmonary disease, unspecified[ICD10: J44.9] Belia Yandelisabellaannie HSUBELIA BushraMayda [facility] CPT-4: 30112 06/06/2015 ([id number]) OFFICE/OUTPATIENT VISIT EST Diagnosis: Chronic obstructive pulmonary disease with (acute) exacerbation[ICD10: J44.1] Lidia Hwang BELIA BushraMayda [facility] RUDOL[facility] CPT- 4: 27235 05/23/2015 ([id number]) OFFICE/OUTPATIENT VISIT EST Diagnosis: Type 2 diabetes mellitus with hyperglycemia[ICD10: E11.65] Diagnosis: Functional dyspepsia[ICD10: K30] [facility]: 13220 05/05/2015 ([id number]) OFFICE/OUTPATIENT VISIT EST Diagnosis: Type 2 diabetes mellitus with hyperglycemia[ICD10: E11.65] Diagnosis: Glycosuria[ICD10: R81] Diagnosis: Urinary tract infection, site not specified[ICD10: N39.0] [facility]: 12298 03/30/2015 ([id number]) OFFICE/OUTPATIENT VISIT EST Diagnosis: Generalized abdominal pain[ICD10: R10.84] Diagnosis: Diarrhea, unspecified[ICD10: R19.7] Diagnosis: Urinary tract infection, site not specified[ICD10: N39.0] Diagnosis: Gastro-esophageal reflux disease without esophagitis[ICD10: K21.9] [facility]: 84863 02/03/2015 ([id number]) OFFICE/OUTPATIENT VISIT EST Diagnosis: Other specified noninflammatory disorders of vagina[ICD10: N89.8] Diagnosis: Follicular disorder, unspecified[ICD10: L73.9] Diagnosis: Functional dyspepsia[ICD10: K30] Diagnosis: FLU VACCINE[ICD10: Z23] Belia [facility] CPT-4: 92613 12/29/2014 ([id number]) OFFICE/OUTPATIENT VISIT EST 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] Diagnosis: RESTLESS LEGS SYNDROME[ICD9: 333.94] Diagnosis: MIGRAINE NOS/NOT INTRCBL[ICD9: 346.90] [facility]: 38413 09/02/2014 ([id number]) OFFICE/OUTPATIENT VISIT EST Diagnosis: Cervical radiculopathy[ICD9: 723.4] Diagnosis: Cervicalgia[ICD9: 723.1] Diagnosis: Degenerative disc disease, cervical[ICD9: 722.4] 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I[ICD9: 250.00] Belia REID [facility] CPT-4: 44552 04/01/2014 OFFICE/OUTPATIENT VISIT EST Diagnosis: Reactive airway disease[ICD9: 493.90] Belia REID DO [facility] CPT-4: 73536 03/16/2014 ([id number]) OFFICE/OUTPATIENT VISIT EST Diagnosis: BRONCHITIS, ACUTE[ICD9: 466.0] Diagnosis: Reactive airway disease[ICD9: 493.90] Belia REID [facility] CPT-4: 11617 03/09/2014 OFFICE/OUTPATIENT VISIT EST Diagnosis: BRONCHITIS, ACUTE[ICD9: 466.0] Diagnosis: WHEEZING[ICD9: 786.07] Huong Peguero [facility] CPT-4: 07828 03/03/2014 OFFICE/OUTPATIENT VISIT EST Diagnosis: BRONCHITIS, ACUTE[ICD9: 466.0] Diagnosis: WHEEZING[ICD9: 786.07] Huong Peguero [facility] CPT-4: 32750 03/01/2014 ([id number]) OFFICE/OUTPATIENT VISIT EST Diagnosis: GERD[ICD9: 530.81] Diagnosis: ARTHRALGIA-MULTIPLE SITES[ICD9: 719.49] Diagnosis: LUMB/LUMBOSAC DISC DEGEN[ICD9: 722.52] Diagnosis: - I - FIBROMYALGIA[ICD9: 729.1] Belia REID [facility] CPT-4: 25327 02/09/2014 ([id number]) OFFICE/OUTPATIENT VISIT EST Diagnosis: Peptic ulcer disease[ICD9: 533.90] Diagnosis: RESTLESS LEGS SYNDROME[ICD9: 333.94] Diagnosis: Neuropathy[ICD9: 355.9] Belia CORNELLLINE Yuridia [facility] CPT-4: 42137 12/23/2013 ([id number]) OFFICE/OUTPATIENT VISIT EST Diagnosis: URINARY TRACT INFECTION[ICD9: 599.0] Belia CORNELL C[place] Yuridia REID [facility] CPT-4: 66490 10/30/2013 ([id number]) OFFICE/OUTPATIENT VISIT EST Diagnosis: Flank pain[ICD9: 789.00] Belia Reid BELIA BushraMyada [facility] CPT-4: 16797 10/21/2013 ([id number]) OFFICE/OUTPATIENT VISIT EST Diagnosis: INFLAMED SEBORR KERATOS[ICD9: 702.11] Diagnosis: Brachioradial pruritus[ICD9: 698.9] Diagnosis: ASTHMA NOS[ICD9: 493.90] Belia Yandelisabellaannie BELIA BushraMayda [facility] CPT-4: 21575 10/05/2013 ([id number]) OFFICE/OUTPATIENT VISIT EST Diagnosis: HYPERTENSION[ICD9: 401.9] Diagnosis: - I - FIBROMYALGIA[ICD9: 729.1] Diagnosis: DIZZINESS/VERTIGO[ICD9: 780.4] Diagnosis: MIGRAINE NOS/NOT INTRCBL[ICD9: 346.90] Diagnosis: Diabetic peripheral neuropathy[ICD9: 250.60] Diagnosis: Flank pain[ICD9: 789.00] Belia BRUNSON BushraMayda [facility] CPT-4: 70126 08/04/2013 ([id number]) OFFICE/OUTPATIENT VISIT EST Diagnosis: ALLERGIC RHINITIS[ICD9: 477.9] Belia Yandelisabellaannie BELIA Bushra Mayda [facility] CPT-[facility]: 48607 07/13/2013 OFFICE/OUTPATIENT VISIT EST Diagnosis: URINARY TRACT INFECTION[ICD9: 599.0] Huong ARNOLD Bush[facility]Mayda [facility] CPT-[facility]: 09014 07/03/2013 OFFICE/OUTPATIENT VISIT EST Diagnosis: HYPERTENSION[ICD9: 401.9] Diagnosis: URINARY TRACT INFECTION[ICD9: 599.0] Diagnosis: BACKACHE[ICD9: 724.5] Diagnosis: URINARY INCONTINENCE[ICD9: 788.30] Huong [facility]: 78454 05/27/2013 ([id number]) OFFICE/OUTPATIENT VISIT EST Diagnosis: Flank pain[ICD9: 789.00] Belia BRUNSON BushraMayda [facility] CPT-4: 32305 05/25/2013 ([id number]) OFFICE/OUTPATIENT VISIT EST Diagnosis: B-COMPLEX DEFIC NEC[ICD9: 266.2] Belia REID [facility] CPT-4: 81068 05/04/2013 ([id number]) OFFICE/OUTPATIENT VISIT EST Diagnosis: ALLERGIC RHINITIS[ICD9: 477.9] Diagnosis: Vitamin B12 deficiency[ICD9: 266.2] Belia REID [facility] CPT-4: 72955 04/17/2013 ([id number]) OFFICE/OUTPATIENT VISIT EST 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I[ICD9: 250.00] Diagnosis: URINARY TRACT INFECTION[ICD9: 599.0] Diagnosis: DIZZINESS/VERTIGO[ICD9: 780.4] Diagnosis: DIARRHEA[ICD9: 787.91] Belia Peguero [facility] CPT-4: 97860 04/06/2013 ([id number]) OFFICE/OUTPATIENT VISIT EST Diagnosis: URINARY TRACT INFECTION[ICD9: 599.0] Diagnosis: URINARY RETENTION[ICD9: 788.20] Belia REID [facility] CPT-4: 77141 11/10/2012 ([id number]) OFFICE/OUTPATIENT VISIT EST Diagnosis: TACHYCARDIA[ICD9: 785.0] Diagnosis: SYNCOPE AND COLLAPSE[ICD9: 780.2] Diagnosis: CONSCIOUSNS ALTERAT NEC[ICD9: 780.09] Belia REID [facility] CPT-4: 25480 09/02/2012 OFFICE/OUTPATIENT VISIT EST Diagnosis: TACHYCARDIA[ICD9: 785.0] Diagnosis: SYNCOPE AND COLLAPSE[ICD9: 780.2] Belia REID [facility] CPT-4: 68457 08/04/2012 ([id number]) OFFICE/OUTPATIENT VISIT EST Diagnosis: Loss of consciousness[ICD9: 780.09] Diagnosis: Tachycardia[ICD9: 785.0] Diagnosis: MALAISE AND FATIGUE[ICD9: 780.79] Belia REID [facility] CPT-4: 32630 07/21/2012 ([id number]) OFFICE/OUTPATIENT VISIT EST Diagnosis: BRONCHITIS, ACUTE[ICD9: 466.0] Diagnosis: ASTHMA NOS[ICD9: 493.90] Belia POOLE [facility] CPT-4: 67560 07/02/2012 ([id number]) OFFICE/OUTPATIENT VISIT EST Diagnosis: CEPHALGIA[ICD9: 784.0] Belia Peguero [facility] CPT-4: 41022 06/25/2012 ([id number]) OFFICE/OUTPATIENT VISIT EST Diagnosis: GERD[ICD9: 530.81] Diagnosis: DIARRHEA[ICD9: 787.91] Diagnosis: URINARY TRACT INFECTION[ICD9: 599.0] Diagnosis: ASTHMA NOS[ICD9: 493.90] Diagnosis: ALLERGIC RHINITIS[ICD9: 477.9] Belia REID [facility] CPT-4: 36932 06/24/2012 ([id number]) OFFICE/OUTPATIENT VISIT EST Diagnosis: MIGRAINE NOS/NOT INTRCBL[ICD9: 346.90] Diagnosis: TREMOR NEC[ICD9: 333.1] Diagnosis: CHRONIC PAIN SYNDROME[ICD9: 338.4] Belia REID [facility] CPT-4: 47425 05/20/2012 ([id number]) OFFICE/OUTPATIENT VISIT EST Diagnosis: DIZZINESS/VERTIGO[ICD9: 780.4] Diagnosis: PALPITATIONS[ICD9: 785.1] Diagnosis: TREMOR NEC[ICD9: 333.1] Diagnosis: ANXIETY STATE NOS[ICD9: 300.00] Diagnosis: POSTTRAUMATIC STRESS DISORDER[ICD9: 309.81] Belia REID [facility] CPT-4: 11088 05/08/2012 ([id number]) OFFICE/OUTPATIENT VISIT EST Diagnosis: MIGRAINE NOS/NOT INTRCBL[ICD9: 346.90] Diagnosis: FIBROMYALGIA[ICD9: 729.1] Diagnosis: SYNCOPE AND COLLAPSE[ICD9: 780.2] Diagnosis: Diabetic peripheral neuropathy[ICD9: 250.60] Belia REID [facility] CPT-4: 43863 04/22/2012 OFFICE/OUTPATIENT VISIT EST Diagnosis: ROTATOR CUFF DIS NEC[ICD9: 726.19] Diagnosis: JOINT PAIN-SHLDER[ICD9: 719.41] Diagnosis: DYSPEPSIA[ICD9: 536.8] Belia Peguero Pond5 [facility] CPT-4: 22222 02/13/2012 ([id number]) OFFICE/OUTPATIENT VISIT EST Diagnosis: MIGRAINE NOS/NOT INTRCBL[ICD9: 346.90] Diagnosis: GERD[ICD9: 530.81] Diagnosis: DYSPEPSIA[ICD9: 536.8] Belia Peguero Pond5 [facility] CPT-4: 76865 01/28/2012 OFFICE/OUTPATIENT VISIT EST Diagnosis: CEPHALGIA[ICD9: 784.0] Diagnosis: MIGRAINE NOS/NOT INTRCBL[ICD9: 346.90] Diagnosis: GERD[ICD9: 530.81] Diagnosis: INSOMNIA NOS[ICD9: 780.52] Belia DOMINGUEZ Pond5 [facility] CPT-4: 40777 12/26/2011 ([id number]) OFFICE/OUTPATIENT VISIT EST Diagnosis: CEPHALGIA[ICD9: 784.0] Diagnosis: MIGRAINE NOS/NOT INTRCBL[ICD9: 346.90] Diagnosis: MALAISE AND FATIGUE[ICD9: 780.79] Diagnosis: FIBROMYALGIA[ICD9: 729.1] Diagnosis: ALLERGIC RHINITIS[ICD9: 477.9] Belia REID [facility] CPT-4: 88080 11/14/2011 ([id number]) OFFICE/OUTPATIENT VISIT EST Diagnosis: MALAISE AND FATIGUE[ICD9: 780.79] Diagnosis: MUSCLE WEAKNESS-GENERAL[ICD9: 728.87] Diagnosis: MIGRAINE NOS/NOT INTRCBL[ICD9: 346.90] Diagnosis: JOINT PAIN-SHLDER[ICD9: 719.41] Belia REID Pond5 [facility] CPT-4: 19245 09/12/2011 ([id number]) OFFICE/OUTPATIENT VISIT EST Diagnosis: CONCUSSION[ICD9: 850.9] Diagnosis: Ataxia[ICD9: 781.3] Diagnosis: DIZZINESS/VERTIGO[ICD9: 780.4] Belia REID [facility] CPT-4: 39031 08/15/2011 ([id number]) OFFICE/OUTPATIENT VISIT EST Diagnosis: THROMBOPHLEBITIS[ICD9: 451.9] Diagnosis: Subacromial bursitis[ICD9: 726.19] Diagnosis: ALLERGIC RHINITIS[ICD9: 477.9] Diagnosis: Lipoma[ICD9: 214.9] Belia REID [facility] CPT-4: 93673 08/09/2011 ([id number]) OFFICE/OUTPATIENT VISIT EST Diagnosis: THROMBOPHLEBITIS[ICD9: 451.9] Diagnosis: Arm pain[ICD9: 729.5] Diagnosis: Clostridium difficile colitis[ICD9: 008.45] Diagnosis: URINARY TRACT INFECTION[ICD9: 599.0] Belia Shi [facility] CPT-4: 81718 07/03/2011 ([id number]) OFFICE/OUTPATIENT VISIT EST Diagnosis: ARTHRALGIA-MULTIPLE SITES[ICD9: 719.49] Diagnosis: Muscle cramp[ICD9: 729.82] Diagnosis: INSOMNIA NOS[ICD9: 780.52] [facility]: 69665 06/04/2011 OFFICE/OUTPATIENT VISIT EST Diagnosis: Headache[ICD9: 784.0] Diagnosis: Allergic rhinitis[ICD9: 477.9] [facility]: 47703 05/03/2011 OFFICE/OUTPATIENT VISIT EST Diagnosis: LUMB/LUMBOSAC DISC DEGEN[ICD9: 722.52] Diagnosis: MIGRAINE NOS/NOT INTRCBL[ICD9: 346.90] Diagnosis: CHRONIC PAIN SYNDROME[ICD9: 338.4] Diagnosis: RESTLESS LEGS SYNDROME[ICD9: 333.94] [facility]: 56626 04/05/2011 OFFICE/OUTPATIENT VISIT EST Diagnosis: MIGRAINE NOS/NOT INTRCBL[ICD9: 346.90] Diagnosis: GERD[ICD9: 530.81] Belia [facility] CPT[facility]: 01359 03/08/2011 OFFICE/OUTPATIENT VISIT EST Diagnosis: URINARY TRACT INFECTION[ICD9: 599.0] Diagnosis: Vertigo[ICD9: 780.4] Diagnosis: GERD[ICD9: 530.81] Belia REID DO [facility] CPT-4: 56629 01/24/2011 OFFICE/OUTPATIENT VISIT EST Diagnosis: Hypotension[ICD9: 458.9] Diagnosis: Syncopal episodes[ICD9: 780.2] Diagnosis: MIGRAINE NOS/NOT INTRCBL[ICD9: 346.90] Diagnosis: MALAISE AND FATIGUE[ICD9: 780.79] Belia Yandelisabellaannie SHARMANDER DO [facility] CPT-4: 88876 01/02/2011 OFFICE/OUTPATIENT VISIT EST Diagnosis: Tinea cruris[ICD9: 110.3] Diagnosis: Intertrigo[ICD9: 695.89] Diagnosis: MIGRAINE NOS/NOT INTRCBL[ICD9: 346.90] Belia GaribayLUBNA TomlinsonMayda YANDELNDER DO [facility] CPT-4: 02177 12/07/2010 OFFICE/OUTPATIENT VISIT EST Diagnosis: PALPITATIONS[ICD9: 785.1] Diagnosis: ANXIETY STATE NOS[ICD9: 300.00] Belia Franklin SHARMANDER DO [facility] CPT-4: 27268 11/16/2010 OFFICE/OUTPATIENT VISIT EST Diagnosis: URINARY TRACT INFECTION[ICD9: 599.0] Diagnosis: MIGRAINE NOS/NOT INTRCBL[ICD9: 346.90] Iraida GaribayLUBNA SMayda SHARMANDER DO [facility] CPT-4: 98527 11/02/2010 OFFICE/OUTPATIENT VISIT EST Diagnosis: ALLERGIC RHINITIS[ICD9: 477.9] Diagnosis: ANXIETY STATE NOS[ICD9: 300.00] Belia Yandelkatina BRUNSON BushraMayda YANDELNDER DO [facility] CPT-4: 48622 10/18/2010 OFFICE/OUTPATIENT VISIT EST Belia Yandelkatina BRUNSON BushraMayda YANDEL NDER DO [facility] CPT- 4: 49014 09/19/2010 OFFICE/OUTPATIENT VISIT EST Belia Yandelisabellaannie BELIA BushraMayda YANDEL NDER DO [facility] CPT- 4: 29265 09/06/2010 ([id number]) OFFICE/OUTPATIENT VISIT EST Belia GaribayLUBNA SMayda YANDELNDER DO [facility] CPT-4: 27633 08/10/2010 ([id number]) OFFICE/OUTPATIENT VISIT EST Belia [facility] CPT-4: 17636 05/11/2010 ([id number]) OFFICE/OUTPATIENT VISIT, EST Belia [facility] CPT-4: 40378 04/06/2010 ([id number]) OFFICE/OUTPATIENT VISIT, EST Belia HSU [facility] CPT-4: 11825 02/09/2010 ([id number]) OFFICE/OUTPATIENT VISIT, EST Belia [facility] CPT-4: 97215 01/05/2010 ([id number]) OFFICE/OUTPATIENT VISIT, EST Belia [facility] CPT-4: 05391 12/07/2009 ([id number]) OFFICE/OUTPATIENT VISIT, EST Belia [facility] CPT-4: 76468 11/08/2009 ([id number]) OFFICE/OUTPATIENT VISIT, EST Belia [facility] CPT-4: 57555 10/24/2009 ([id number]) OFFICE/OUTPATIENT VISIT, EST Belia [facility] CPT-4: 85112 07/25/2009 ([id number]) OFFICE/OUTPATIENT VISIT, RIOS [facility] CPT-4: 71221 05/26/2009 Plan of Care Planned Activity Notes [...] Add Singulair May need to see new paper wood cutter ICD-9 : 786.1 ICD-10 : R06.1 05/06/2019 Appointment: Belia Reid WPtel: [address] [place], [place] [phone] FOLLOW UP 05/06/2019 Patient Education: Singulair- [employer] Coupon [id number] https://www.[employer]/sampleCerahelix/resources/getResource/61/9831633i-[email or web address]-fz Completed 05/06/2019 Care Plan: CT THORAX W/O DYE LOINC : 473 66-0 Pending 05/06/2019 Appointment: Belia Reid WPtel: [address] [place] [address] US RESCHEDULED 04/30/2019 Visit Diagnosis Plan: Muscle, [...] : R06.1 04/29/2019 Appointment: Belia Reid WPtel: [address] [place] [address] Hospital Follow Up 04/29/2019 Patient Education: Valium- [employer] Coupon [id number] https://www.[employer]/samplemd/resources/getResource/61/[email or web address] Completed 04/29/2019 Visit Diagnosis Plan: Weight gain [...] ICD-10 : R10.9 04/16/2019 Appointment: Pattie Sotomayor [address] [place] [address] ACUTE ILLNESS 04/16/2019 Patient Education: cyclobenzaprine- [employer] Coupon [id number] https://www.[employer]/resources/getResource/61/[email or web address]-[email or web address] Completed 04/16/2019 Visit Diagnosis Plan: Generalized pruritus Discussion: Hydroxyzine 25mg po TID for itching and anxiety ICD-9 : 698.9 ICD-10 : L29.9 04/08/2019 Visit Diagnosis Plan: Migraine, unspecif ied, not intractable, without status migrainosus Discussion: Increase gabapentin to 600mg po BID ICD-9 : 346.90 ICD-10 : G43.909 04/08/2019 Appointment: Belia Reid WPtel: [address] [place] [address] ACUTE ILLNESS 04/08/2019 Visit Diagnosis Plan: Cervicalgia [...] : M75.52 01/22/2019 Appointment: Belia Reid WPtel: [address] [place] [address] Hospital Follow Up 01/22/2019 Visit Diagnosis Plan: Abdominal pain Discussion: urine culture sent to assess for any infection. rocephin given in office to cover for pyelonephritis. instructed to push fluids. call office with any new or worsening symptoms. ICD-9 : 789.00 ICD-10 : R10.9 01/07/2019 Appointment: Pattie Sotomayor [address] [place] [address] ACUTE ILLNESS 01/07/2019 Visit Diagnosis Plan: Low back pain Discussion: Stat C T of abdomen/pelvis now ICD-9 : 724.2 ICD-10 : M54.5 12/24/2018 Appointment: Belia Reid WPtel: [address] [place], [place] [id number] FOLLOW UP 12/24/2018 Visit Diagnosis Plan: [...] : G43.909 11/20/2018 Appointment: Belia Reid WPtel: [address] [place] [address] ACUTE ILLNESS 11/20/2018 Patient Education: baclofen- [employer] Coupon [id number] https://www.[employer].Safari[employer]k/samplemd/resources/getResource/61/7x3629e9-[email or web address] Completed 11/20/2018 Visit Diagnosis Plan: Migraine, unspecif ied, intractable, without status migrainosus Discussion: toradol/phenergan given in o ffice (60 mg toradol, 12.5 mg phenergan). instructed to call if no improvement or worsening. 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 ICD-9 : 346.91 ICD-10 : G43.919 11/04/2018 Visit Diagnosis Plan: Acute sinusitis, unspecified Dis cussion: zithromax prescribed to cover for sinus infection due to length of symptoms and clinincal s/s. ICD-9 : 461.9 ICD-10 : J01.90 11/04/2018 Appointment: Pattie Sotomayor [address] [place], [place] [id number] ACUTE ILLNESS 11/04/2018 App[facility]ment: [facility] [phone] [id number] [facility] CANCELED 09/24/2018 Visit Diagnosis Plan: Type 2 diabetes me llitus with diabetic neuropathy, unspecified Discussion: Retry gabapentin 300mg po q HS ICD-9 : 250.60 ICD-10 : E11.40 09/18/2018 Visit Diagnosis Plan: Vitamin D deficiency, unspecifie d Discussion: Increase Vitamin D3 to 10,000 u daily ICD-9 : 268.9 ICD-10 : E55.9 09/18/2018 Visit Diagnosis Plan: Encounter for [facility] medical examination without abnormal findings [...] I10 09/18/2018 Appointment: Bel[facility] Reid [facility]el[facility] [phone] [id number] [facility] Well Visit 09/18/2018 Patient Education: gabapentin- Opt[employer] Coupon [id number] https://www.[employer].Saf[employer]k/samplemd/resources/getResource/61/[email or web address]-[email or web address] Completed 09/18/2018 Visit Diagnosis Plan: Pain in [...] : M54.89 09/08/2018 Appointment: Pattie Sotomayor [address] [place], [place] [id number] ACUTE ILLNESS 09/08/2018 Patient Education: prednisone- [employer] Coupon [id number] [email or web address] Completed 09/08/2018 Visit Diagnosis Plan: Acute stress [...] : L29.9 08/20/2018 Appointment: Belia Reid WPtel: [address] [place] [address] ACUTE ILLNESS 08/20/2018 Patient Education: Lexapro- [employer] Coupon [id number] Completed 08/20/2018 Patient Education: hydroxyzine HCl- [employer] Coupon [id number] Completed 08/20/2018 Care Plan: MAMMOGRAM SCREENING LOINC : 2 6347-5 Pending 08/20/2018 Visit Diagnosis Plan: Paroxysmal atrial fibrillation D iscussion: Discuss eliquis need with cardiology at [facility] due to cost ICD-9 : 427.31 ICD-10 : I48.0 06/19/2018 Visit Diagnosis Plan: Hypotension due to drugs Discuss ion: Discussed decreasing cardizem dose due to low BP and edema but sees cardiology next week Follow Up: 1 months ICD-9 : 458.8 ICD-10 : I95.2 06/19/2018 Appointment: Belia Reid WPtel: [facility] [place] [phone] FOLLOW UP 06/19/2018 Visit Diagnosis Plan: Essential [...] : R61 06/09/2018 Appointment: Belia Reid WPtel: [address] [place], [place] [phone] FOLLOW UP 06/09/2018 Care Plan: CHEST X-RAY 2VW FRONTAL&LATL LOINC : 10436-6 Pending 05/26/2018 Visit Diagnosis Plan: Stridor Discussion: [...] : I47.1 05/21/2018 Appointment: Belia Reid WPtel: [address] [place], [place] [phone] Hospital Follow Up 05/21/2018 Visit Diagnosis Plan: Cervical disc diso rder with radiculopathy, unspecified cervical region Discussion: Scheduled for surgery on 06/02 10/[address] Faulkner ICD-9 : 722.0 ICD-10 : M50.10 04/16/2018 Appointment: Belia Reid WPtel: [address] [place], [place] [phone] [facility] Follow Up 04/16/2018 Visit Diagnosis Plan: Migraine, [...] ICD-10 : M79.7 04/01/2018 Appointment: Pattie Sotomayor [address] [place] [address] ACUTE ILLNESS 04/01/2018 Appointment: Belia Reid WPtel: [facility] 03/17/2018 Visit Diagnosis Plan: Erythema intertrigo [...] : J44.1 03/06/2018 Appointment: Belia Reid WPtel: [address] [place] [address] Hospital Follow Up 03/06/2018 Visit Diagnosis Plan: Cervicalgia Discussion: spoke wi th dr. reid about patient. increased gabapentin to bid and started on celebrex bid. tramadrol rx written out to take prn. keep scheduled appt next week for myelogram. ICD-9 : 723.1 ICD-10 : M54.2 02/05/2018 Appointment: Pattie Sotomayor [address] [place] [address] ACUTE ILLNESS 02/05/2018 Care Plan: X-RAY EXAM NECK SPINE 4/5VWS cervical LOINC : 36800-3 Pending 01/21/2018 Visit Diagnosis Plan: Candidiasis of [...] ICD-10 : M54.2 01/20/2018 Appointment: Pattie Sotomayor [address] [place], [place] [phone] ACUTE ILLNESS 01/20/2018 Visit Diagnosis Plan: Pain in thoracic spine Discussio n: Proceed with CT scan of thoracic spine Will likely need PT ICD-9 : 724.1 ICD-10 : M54.6 12/25/2017 Appointment: Belia Reid WPtel: [address] [place], [place] [phone] FOLLOW UP 12/25/2017 Care Plan: CT THORAX W/O DYE LOINC : 473 66-0 Pending 12/25/2017 Visit Diagnosis Plan: Pain in thoracic spine Discussio n: Stretches Alternated heat/ice Topical aspercreme with lidocaine Flexeril Recheck 1 week Flu and Pneumovax given ICD-9 : 724.1 ICD-10 : M54.6 12/17/2017 Appointment: Belia Reid WPtel: [address] [place], [place] [phone] ACUTE ILLNESS 12/17/2017 Patient Education: Patient [...] : J44.1 10/30/2017 Appointment: Belia Reid WPtel: [address] [place], [place] [phone] FOLLOW UP 10/30/2017 Patient Education: Patient Medication Summary Completed 10/30/2017 Visit Diagnosis Plan: Chronic obstructiv e pulmonary disease with acute lower respiratory infection Discussion: Continue SVNs with albuterol q4hrs Add Trelagy 1 inhalation daily Finish steroids Increase water intake Follow Up: 1 weeks ICD-9 : 496 ICD-10 : J44.0 10/23/2017 Appointment: Belia Reidtel: [address] [place], [place] [phone] [place] WORK IN 10/23/2017 Patient Education: Patient Medication Summary Completed 10/23/2017 Appointment: Belia Reidtel: [address] [place], [place] [phone] NO SHOW 10/16/2017 Visit Diagnosis Plan: Confusional [...] ICD-10 : E11.65 09/17/2017 Appointment: Belia Reidtel: [address] [place], [place] [phone] Annual Well Visit 09/17/2017 Patient Education: Patient Medication Summary Completed 09/17/2017 Appointment: Belia Reid WPtel: [address] [place], [place] [phone] US INJECTION 08/26/2017 Patient Education: Patient Medication Summary Completed 08/26/2017 Appointment: Belia Reidtel: [address] [place], [place] [phone] [place] CANCELED 07/31/2017 Visit Diagnosis Plan: Encounter [...] : J20.9 07/19/2017 Appointment: Pattie Sotomayor [address] [employer] [place] [phone] ACUTE ILLNESS 07/19/2017 Patient Education: Patient Medication Summary Completed 07/19/2017 Care Plan: MAMMOGRAM SCREENING LOINC : 2 6347-5 Pending 07/19/2017 Patient Education: Patient Medication Summary Completed 06/05/2017 Care Plan: LIPID PANEL LOINC : 72580-8 Pending 06/05/2017 Care Plan: A1C HPLC LOINC : 33176-1 Pending 06/05/2017 Visit Diagnosis Plan: Rash and [...] : R21 05/29/2017 Appointment: Pattie Sotomayor [address] [employer] [id number] FOLLOW UP 05/29/2017 Patient Education: Patient Medication Summary Completed 05/29/2017 Visit Diagnosis Plan: Diarrhea, unspecified Discussion : Diflucan Cholestyramine Recheck 2weeks ICD-9 : 787.91 ICD-10 : R19.7 05/07/2017 Visit Diagnosis Plan: Tinea corporis Discussion: Diflu can and topical nystatin Follow Up: 2 weeks ICD-9 : 110.5 ICD-10 : B35.4 05/07/2017 Appointment: Belia Reid WPtel: [address] [place], [place] [phone] [place] FOLLOW UP 05/07/2017 Patient Education: Patient Medication Summary Completed 05/07/2017 Appointment: Belia Reid WPtel: [address] [place] [address] US RESCHEDULED 04/30/2017 Visit Diagnosis Plan: Stridor Discussion: Increase Ati van 0.5mg po to TID routinely for next week then can go back to prn ICD-9 : 786.1 ICD-10 : R06.1 03/18/2017 Visit Diagnosis Plan: Chronic obstructiv e pulmonary disease with (acute) exacerbation Discussion: Finish prednisone Continue S VNS with albuterol ICD-9 : 491.21 ICD-10 : J44.1 03/18/2017 Appointment: Belia Reid WPtel: [address] [place] [address] ER Follow UP 03/18/2017 Patient Education: Patient [...] ICD-10 : E11.65 02/27/2017 Appointment: Belia Reidtel: [address] [place], [place] [address] US FOLLOW UP 02/27/2017 Patient Education: Patient [...] : E11.65 02/22/2017 Appointment: [facility] [facility] 02/22/2017 Patient Education: Patient [...] ICD-10 : J18.9 01/23/2017 Appointment: Belia Reidl: [facility] [facility] Follow UP 01/23/2017 Patient Education: Patient Medication Summary Completed 01/23/2017 Appointment: Patt[facility]otomayor [facility] CANCELED 01/17/2017 Appointment: Pattie Sotomayor [address] [place], [place] [address] Annual Well Visit 01/14/2017 Visit Diagnosis Plan: Localized edema Discussion: Low Na diet Compression socks/Elevate feet ICD-9 : 782.3 ICD-10 : R60.0 12/20/2016 Visit Diagnosis Plan: Type 2 diabetes mellitus with hy perglycemia Discussion: Check CMP, HbA1C Flu shot and Prevnar 13 given Follow Up: 3 months ICD-9 : 250.02 ICD-10 : E11.65 12/20/2016 Appointment: Belia Reid: [address] [facility] [facility] 12/20/2016 Patient Education: Patient Medication Summary Completed 12/20/2016 Patient Education: Patient Medication Summary Completed 10/10/2016 Visit Plan: Xrays of cervical, thoracic and lumbar spine at [facility] for Mobic (stop NSAIDS except Tylenol) and Flexeril UA sent for C&S Using SVN Call in 2-3 days if pain not improved or any worsening 10/08/2016 Appointment: Celeste Fererira [facility]Ptel[facility] [address] [facility] [facility] 10/08/2016 Patient Education: Patient Medication [...] : G43.909 09/19/2016 Appointment: Belia Reid WPtel: [address] [place], [place] [address] 09/18 confirmed`sl FOLLOW UP 09/19/2016 Patient Education: [...] : G43.909 08/20/2016 Appointment: Belia Reid WPtel: [address] [place], [place] [phone] 08/16 confirmed~sl FOLLOW UP 08/20/2016 Patient Education: [...] : R06.1 06/19/2016 Appointment: Belia Reid WPtel: [address] [place], [place] [phone] 06/18 confirmed ~ Hospital Follow Up 06/19/2016 [...] : Z87.440 06/04/2016 Appointment: Belia Reid WPtel: [address] [place], [place] [phone] 06/01 confirmed~sl FOLLOW UP 06/04/2016 Patient Education: [...] : N30.90 05/02/2016 Appointment: Belia Reid WPtel: [address] [place], [place] [address] 05/01 confirmed ~ Hospital Follow Up 05/02/2016 [...] : M79.7 04/03/2016 Appointment: Belia Reid WPtel: [address] [place], [place] [phone] 04/03/2016 Patient Education: Patient Medication Summary Completed 04/03/2016 Visit Plan: Lungs are clear Her symptoms and exam are all upper airway restriction/constriction Can try supportive care Rx as above Follow up PRN 02/29/2016 Appointment: Lidia Hwang [address] [place] [address] ACUTE ILLNESS 02/29/2016 Patient Education: Patient Medication Summary Completed 02/29/2016 Visit Plan: Toradol/Phenergan today for Migraine Change to Clindamycin to cover lactobacillus for UTI Cover with flagyl due to hx of C. Diff 02/02/2016 Appointment: Belia Reid WPtel: [address] [place], [place] [address] 01/31 confirmed` ACUTE ILLNESS 02/02/2016 Patient Education: Patient Medication Summary Completed 02/02/2016 Visit Plan: Increase neurontin to 300mg q AM and 600mg q PM Discussed neurology re-evaluation Flu shot given Need to check on Pneumonia shot Rx written out for albuterol 01/05/2016 Appointment: Belia Reid WPtel: [address] [place], [place] [phone] 01/03 confirmed ~sl Annual Well Visit 01/05/2016 Patient Education: Patient Medication Summary Completed 01/05/2016 Visit Plan: Cipro Culture urine hydrate Flexeril refilled Alternate heat and ice for back Increase gabapentin to 300mg po BID Notify if worsens 12/05/2015 Appointment: Belia Reid WPtel: [address] [facility] 11/30 confirmed~sl ACUTE ILLNESS 12/05/2015 Patient Education: Patient Medication Summary Completed 12/05/2015 Patient Education: Patient Medication Summary Completed 10/27/2015 Care Plan: COMPREH[place]AB[place] : 407[address]-2 Pending 10/27/2015 Care Plan: A1C HPLC LOINC : 66682-2 Pending 10/27/2015 Visit Plan: Lungs are CTA today and is f eeling improved overall Finish meds as ordered Continue inhalers and neb treatments Discussed migraine treatment options She does not feel she needs anything additional added today Refill of Januvia sent since no samples are available today 10/26/2015 Appointment: Lidia Hwang [address] Hospital Follow Up 10/26/2015 Appointment: Lidia Hwang [address] CANCELED 10/26/2015 Patient Education: Patient Medication Summary Completed 10/26/2015 Patient Education: Januvia - 18+ - KENNETH - No [place] Completed 10/26/2015 Visit Plan: Office dip still abnormal Cu lture pending Switch to cipro - stop macrobid Push fluids - avoid caffeine Will call with culture results when available Follow up if worsening 10/05/2015 Appointment: Lidia Hwang [address] ER Follow UP 10/05/2015 Patient Education: Patient Medication Summary Completed 10/05/2015 Visit Plan: Proceed with PT for document ation of ROM and strength of all extremities Proceed with Power Mobility Device Trial of neurontin 300mg q HS--lyrica helped but patient unable to afford Recheck 1month 09/15/2015 Appointment: Belia Reid WPtel: [address] [place], [place] [phone] 09/13 confirmed~sl SPECIAL 09/15/2015 Patient Education: Patient Medication Summary Completed 09/15/2015 Visit Plan: Fille out Loan Discharge Pap erwork for total and permanent disability 08/25/2015 Patient Education: Patient Medication Summary Completed 08/25/2015 Visit Plan: Discussed with Dr Franklin Haywood at CT of head 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 and update if needed 08/24/2015 Appointment: Lidia Hwang [address] [facility] 08/22 confirmed~sl ACUTE ILLNESS 08/24/2015 Patient Education: Patient Medication Summary Completed 08/24/2015 Patient Education: Patient Medication Summary Completed 08/24/2015 Care Plan: US EXAM OF HEAD AND NECK carotid Ultrasound LOIN C : 45939-1 Pending 08/24/2015 Visit Plan: Long discussion about diet A ccuchecks daily Check HbA1C, CMP Change requip to mirapex 07/05/2015 Appointment: Belia Reid WPtel: [address] [place], [place] [phone] 07/03 confirmed ~sl FOLLOW UP 07/05/2015 Patient Education: Patient Medication Summary Completed 07/05/2015 Visit Plan: Add Breo ellipta 100 1 p BID Continue SVNs with duoneb QID 06/06/2015 Appointment: Belia Reid WPtel: [address] [place], [place] [phone] Patient is calling for a ride, then retu rning our call.-sp 06/01 called and patient stated she will know saturday if she can get a ride~sl 06/05 [facility] Hospital Follow Up 06/06/2015 Patient Education: [...] not improving 05/23/2015 Appointment: Huong Os[place] WPtel: [address] [place] [address] ACUTE ILLNESS 05/23/2015 Appointment: Lidia Hwang [address] [place] [address] ER Follow UP 05/23/2015 Patient Education: Patient Medication Summary Completed 05/23/2015 Visit Plan: Check pancreatic enzymes and US of pancreas as patient can't understand why she has diabetes since has no family history Discussed weight, diet, exercise all play an important role in diabetes and are risk factors as well Continue Januvia and accuchecks daily 05/05/2015 Appointment: Belia Reid WPtel: [address] [place] [address] US FOLLOW UP 05/05/2015 Patient Education: Patient Medication Summary Completed 05/05/2015 Care Plan: US EXAM ABDOM COMPLETE LOINC : 57203-4 Ordered 05/05/2015 Visit Plan: Start Januvia 100mg daily [place] with diflucan and culture urine Accuchecks daily alternating times Recheck 6weeks 03/30/2015 Appointment: Belia Reid WPtel: [address] [place] [address] 03/29 confirmed~lb FOLLOW UP 03/30/2015 Patient Education: Patient Medication Summary Completed 03/30/2015 Appointment: Belia Reid WPtel: [address] [place], [place] [phone] 03/01 needs reschedule due to payment and insurance ~sl FOLLOW UP 03/02/2015 Visit Plan: Patient was just in ER last night so has not filled scripts yet Start Carafate and Flagyl and Cipro Add Hyophen 1 po BID Recheck 1mo 02/03/2015 Appointment: Belia Reid WPtel: [address] [place] [address] [place] 02/02lm ~sl...02/03/15 appt confirmed cn ACUTE I LLNESS 02/03/2015 Patient Education: Patient Medication Summary Completed 02/03/2015 Visit Plan: Warm soaks to vaginal area K elex and Diflucan and observe Zofran to use prn 12/29/2014 Appointment: Belia Reid WPtel: [address] [place], [place] [phone] 12/28 Confirmed ~ ACUTE ILLNESS 12/29/2014 Patient Education: Patient Medication Summary Completed 12/29/2014 Appointment: Huong Os[place] WPtel: [address] [place], [place] [phone] FOLLOW UP 09/24/2014 Appointment: Belia Reid WPtel: [address] [place] [address] 09/15 confirmed - FOLLOW UP 09/16/2014 Visit Plan: Increase requip to 2mg po BI D Increase lyrica to 225mg total a day by adding an extra 75mg in AM Recheck in 2weeks Continue to patch left eye while sleeping 09/02/2014 Appointment: Belia Reid WPtel: [address] [place], [place] [phone] 09/01 appt confirmed [facility] Follow Up 09/02 Patient Education: Patient Medication Summary Completed 09/02/2014 Visit Plan: To [facility] for observat ion to R/O CVA 08/25/2014 Appointment: Huong [place] WPtel: [address] [place], [place] [phone] ACUTE ILLNESS 08/25/2014 Patient Education: Patient Medication Summary Completed 08/25/2014 Referral: Aaron Jonas WPtel: [facility] [address] [place] location Initiated 04/26/2014 Referral: [id number] Ref[facility] Initiated 04/20/2014 Appointment: Belia Reid WPtel: [address] [place], [place] [phone] ER Follow UP 04/01/2014 Patient Education: Patient Medication Summary Completed 04/01/2014 Care Plan: MYELOGRAPHY NECK SPINE LOINC : 10099-3 Ordered 04/01/2014 Visit Plan: Continue Symbicort 160 at 2p BID Continue SVNs with duoneb at least QID Finish Levaquin Recheck 1mo on lyrica 03/16/2014 Appointment: Belia Reid WPtel: [address] [place], [place] [phone] 03/15 voicemail FOLLOW UP 03/16/2014 Patient Education: Patient Medication Summary Completed 03/16/2014 Visit Plan: Restart SVNs with duoneb QID Repeat prednisone Levaquin Continue symbicort Keep lyrica at same dose Recheck 1week 03/09/2014 Appointment: Belia Reid WPtel: [address] [place], [place] [phone] FOLLOW UP 03/09/2014 Patient Education: Patient Medication Summary Completed 03/09/2014 Appointment: Belia Reid WPtel: [address] [place], [place] [phone] 03/03 showed up 15 minutes late for appt -- put her on Huong's side for 10:45am FORGIVEN PER DR FOLLOW UP 03/03/2014 Appointment: Huong [place] WPtel: [address] [place], [place] [phone] [place] FOLLOW UP 03/03/2014 Patient Education: Patient Medication Summary Completed 03/03/2014 Appointment: Huong [place] WPtel: [address] [place], [place] [phone] ER Follow UP 03/01/2014 Patient Education: Patient Medication Summary Completed 03/01/2014 Visit Plan: Add carafate for this next m onth Increase lyrica to 150mg q HS 02/09/2014 Appointment: Belia Reid WPtel: [address] [place] [phone] Hospital Follow Up 02/09/2014 Patient Education: Patient Medication Summary Completed 02/09/2014 Visit Plan: Increase omeprazole back to 40mg po BID Use requip in AM and add lyrica 75mg q HS Recheck 1mo 12/23/2013 Appointment: Belia Reid WPtel: [address] [place], [place] [phone] FOLLOW UP 12/23/2013 Patient Education: Patient Medication Summary Completed 12/23/2013 Patient Education: Patient Medication Summary Completed 12/04/2013 Appointment: Belia Reid WPtel: [address] [place], [place] [phone] UA 10/30/2013 Patient Education: Patient Medication Summary Completed 10/30/2013 Appointment: Belia Reid WPtel: [address] [place], [place] [phone] UA 10/21/2013 Patient Education: Patient Medication Summary Completed 10/21/2013 Visit Plan: Cryotherapy as above TAC and hydroxyzine to use prn to itching spots and itching SKs Add Advair HFA 115/21 1 p BID 10/05/2013 Appointment: Belia Reid WPtel: [address] [place], [place] [phone] 10/01 pt called and confirmed ACUTE ILLNESS Patient Education: Patient Medication Summary Completed 10/05/2013 Appointment: Belia Reid WPtel: [address] [place], [place] [phone] will pay copay and part of past balance FOLLOW U P 08/04/2013 Patient Education: Patient Medication Summary Completed 08/04/2013 Appointment: Belia Reid WPtel: [address] [place], [place] [phone] [place] INJECTION 07/13/2013 Patient Education: Patient Medication Summary Completed 07/13/2013 Appointment: Huong Os[place] WPtel: [address] [place], [place] [phone] ACUTE ILLNESS 07/03/2013 Patient Education: Patient Medication Summary Completed 07/03/2013 Visit Plan: Cipro and culture urine 05/27/2013 Appointment: Huong Osborne WPtel: [address] [place], [place] [phone] 05/26 confirmed appt and 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 at appt time FOLLOW UP 05/27/2013 Patient Education: Patient Medication Summary Completed 05/27/2013 Appointment: Belia Reid WPtel: [address] [place], [place] [phone] [place] UA 05/25/2013 Patient Education: Patient Medication Summary Completed 05/25/2013 Appointment: Belia Reid WPtel: [address] [place], [place] [phone] US INJECTION 05/04/2013 Patient Education: Patient Medication Summary Completed 05/04/2013 Appointment: Belia Reid WPtel: [address] [place], [place] [phone] US INJECTION 04/17/2013 Patient Education: Patient Medication Summary Completed 04/17/2013 Appointment: Belia Reid WPtel: [address] [place], [place] [phone] US INJECTION 04/15/2013 Appointment: Belia Reid WPtel: [address] [place], [place] [phone] 04/02 vm FOLLOW UP 04/06/2013 Patient Education: Patient Medication Summary Completed 04/06/2013 Visit Plan: Obtain lab results including UA from [facility] 11/10/2012 Appointment: Belia Reid WPtel: [address] [place], [place] [phone] [place] ER Follow UP 11/10/2012 Patient Education: Patient Medication Summary Completed 11/10/2012 Appointment: Belia Reid WPtel: [address] [place], [place] [phone] 10/30/12 patient canceled appt due to fin ances. Offered to work something out, patient declined-LB FOLLOW UP 11/05/2012 Visit Plan: Continue Bystolic at current dose Pt has fwup with Neurology on September 16 09/02/2012 Appointment: Belia Reid WPtel: [address] [place] [address] FOLLOW UP 09/02/2012 Patient Education: Patient Medication Summary Completed 09/02/2012 Visit Plan: Continue bystolic at 5mg chris ly Sees Neurology tomorrow Use oxygen at bedtime 08/04/2012 Appointment: Belia Reid WPtel: [address] [place] [address] FOLLOW UP 08/04/2012 Patient Education: Patient Medication Summary Completed 08/04/2012 Appointment: Belia Reid WPtel: [address] [place] [address] Hospital fwup for 07/21/12. merged appointments FOLLOW UP 07/24/2012 Visit Plan: Start Bystolic 5mg daily for tachycardia Fwup with neurology for further workup Overnight O2 sat 07/21/2012 Appointment: Belia Reid WPtel: [address] [place] [address] Hospital Follow Up 07/21/2012 Patient Education: Patient Medication Summary Completed 07/21/2012 Visit Plan: SVN with Albuterol QID Add A velox 400mg daily Notify if worsens or persists 07/02/2012 Appointment: Belia Reid WPtel: [address] [place] [address] ACUTE ILLNESS 07/02/2012 Patient Education: Patient Medication Summary Completed 07/02/2012 Appointment: Belia Reid WPtel: [address] [place], [place] [phone] INJECTION 06/25/2012 Patient Education: Patient Medication Summary Completed 06/25/2012 Appointment: Belia Reid WPtel: [address] [place], [place] [address] FOLLOW UP 06/24/2012 Patient Education: Patient Medication Summary Completed 06/24/2012 Appointment: Belia Reid WPtel: [address] [place] [address] 05/19 left message FOLLOW UP 05/20/2012 Patient [...] po TID 05/08/2012 Appointment: Belia Reid WPtel: [address] [place] [address] ACUTE ILLNESS 05/08/2012 Patient Education: Patient Medication Summary Completed 05/08/2012 Visit Plan: Continue current meds Contin ue lower dose on pain meds and Diazepam Still waiting on paperwork for botox for Migraines Will restart Neurontin at 600mg po q HS Pt going to stop Depakote due to can't afford 04/22/2012 Appointment: Belia Reid WPtel: [address] [place] [address] 04/21 Hospital Follow Up 04/22/2012 Patient Education: Patient Medication Summary Completed 04/22/2012 Visit Plan: Injection to shoulder as abo ve Continue current meds Has appointment with neurology on HAs in 02/13/2012 Appointment: Belia Reid WPtel: [address] [place] [phone] Pt does not have $10 copay at [facility] t time - will bring it in next week. Kianna iqbal'ed this. - [place] FOLLOW UP 02/13/2012 Patient Education: Patient Medication Summary Completed 02/13/2012 Visit Plan: Proceed with headache specia list Change nexium to Protonix Phenergan to use prn Sumatriptan to use prn Pt still on Inderal 01/28/2012 Appointment: Belia Reid WPtel: [address] [place] [address] ER Follow UP 01/28/2012 Patient Education: Patient [...] for sleep 12/26/2011 Appointment: Belia Reid WPtel: [address] [place] [address] 12/24- appt. confirmed FOLLOW UP 2 Patient Education: Patient Medication Summary Completed 12/26/2011 Appointment: Belia Reid WPtel: [address] [place] [address] [place] FOLLOW UP 11/14/2011 Patient Education: Patient Medication Summary Completed 11/14/2011 Appointment: Belia Reid WPtel: [address] [place], [place] [phone] US FOLLOW UP 09/12/2011 Patient Education: Patient Medication Summary Completed 09/12/2011 Visit Plan: Supportive care Decrease Liseth catalino to 50mg q HS Decrease AM dose of Valium to 5mg q HS Use Endocet sparingly 08/15/2011 Appointment: Belia Reid WPtel: [address] [place] [address] ER Follow UP 08/15/2011 Patient Education: Patient Medication Summary Completed 08/15/2011 Appointment: Belia Reid WPtel: [address] [place] [address] [place] Spoke directly to patient yesterday and confirmed the appoin tment. cn ACUTE ILLNESS 08/09/2011 Patient Education: Patient Medication Summary Completed 08/09/2011 Appointment: Belia Reid WPtel: [address] [place] [address] Hospital Follow Up 07/03/2011 Patient Education: Patient Medication Summary Completed 07/03/2011 Appointment: Belia Reid WPtel: [address] [place] [address] FOLLOW UP 06/04/2011 Patient Education: Patient Medication Summary Completed 06/04/2011 Visit Plan: Pt. wants "allergy shot" but in fact wants steroid shot. Will take a break from "generic Zyrtec they are getting from [facility]" and try Singulair for 2 weeks. 05/03/2011 Appointment: Iraida Jones WPtel: [address] [place] [address] ACUTE ILLNESS 05/03/2011 Patient Education: Patient Medication Summary Completed 05/03/2011 Visit Plan: Neurontin 400mg q HS for 1we ek then 800mg q HS Decrease requip to 1mg q HS for 2wks then stop Fwup 2mos 04/05/2011 Appointment: Belia Reid WPtel: [address] [place] [address] FOLLOW UP 04/05/2011 Patient Education: Patient Medication Summary Completed 04/05/2011 Visit Plan: Trial of neurontin in 2wks C ontinue current meds for stomach Pt has procedure with Dr. Ortiz next week for stone removal 03/08/2011 Appointment: Belia Reid WPtel: [address] [place] [address] Hospital Follow Up 03/08/2011 Patient Education: Patient Medication Summary Completed 03/08/2011 Appointment: Belia Reid WPtel: [address] [place] [address] FOLLOW UP 02/19/2011 Visit Plan: reports increased [...] with Flagyl 01/24/2011 Appointment: Iraida Jones WPtel: [address] [place] [address] ACUTE ILLNESS 01/24/2011 Patient Education: Patient Medication Summary Completed 01/24/2011 Appointment: Belia Reid WPtel: [address] [place] [address] [place] FOLLOW UP 01/02/2011 Patient Education: Patient Medication Summary Completed 01/02/2011 Appointment: Belia Reid WPtel: [address] [place] [address] FOLLOW UP 12/12/2010 Appointment: Belia Reid WPtel: [address] [place], [place] [id number] ACUTE ILLNESS 12/07/2010 Patient Education: Patient Medication Summary Completed 12/07/2010 Visit Plan: Increase Buspar to 10mg po B ID 11/16/2010 Appointment: Belia Reid WPtel: [address] [place], [place] [phone] [place] FOLLOW UP 11/16/2010 Patient Education: Patient Medication Summary Completed 11/16/2010 Appointment: Iraida Jones WPtel: [address] [place], [place] [phone] ER Follow UP 11/02/2010 Patient Education: Patient Medication Summary Completed 11/02/2010 Visit Plan: Depo-Medrol/Kenalog given fo r allergies Add BuSpar for anxiety Oxycodone one p.o. q.i.d. for number 120 refilled 10/18/2010 Appointment: Belia Reid WPtel: [address] [place], [place] [phone] [place] FOLLOW UP 10/18/2010 Patient Education: Patient Medication Summary Completed 10/18/2010 Visit Plan: Continue current meds Discus sed epidurals for back vs PT--will proceed with epidurals to thoracolumbar region to see if helps with pain 09/19/2010 Appointment: Belia Reid WPtel: [address] [place], [place] [phone] FOLLOW UP 09/19/2010 Patient Education: Patient Medication Summary Completed 09/19/2010 Visit Plan: DC MS contin Check CT scan t horacic spine Fwup pending above results 09/06/2010 Appointment: Belia Reid WPtel: [address] [place], [place] [phone] FOLLOW UP 09/06/2010 Patient Education: Patient Medication Summary Completed 09/06/2010 Visit Plan: Continue current meds Restar t MS contin 15mg po BID and use oxycodone prn Use daily senokot-s 2 po BID 08/10/2010 Appointment: Belia Reid WPtel: [address] [place], [place] [phone] FOLLOW UP 08/10/2010 Patient Education: Patient Medication Summary Completed 08/10/2010 Visit Plan: Depomedrol/Kenalog given Pt sees ENT later this month Cont current meds Mammo scheduled 05/11/2010 Appointment: Belia Reid WPtel: [address] [place], [place] [phone] FOLLOW UP 05/11/2010 Patient Education: Patient Medication Summary Completed 05/11/2010 Appointment: Belia Reid WPtel: [address] [place], [place] [phone] UA 05/04/2010 Patient Education: Patient Medication Summary Completed 05/04/2010 Visit Plan: Pt sent to lab for UA 04/28/2010 Appointment: Belia Reid WPtel: [address] [place], [place] [phone] UA 04/28/2010 Patient Education: Patient Medication Summary Completed 04/28/2010 Visit Plan: Check CT angiogram of chest Restart Advair Use proair prn Cont current meds Fwup with Card as schedulec 04/06/2010 Appointment: Belia Reidtel: [address] [place] [address] Follow Up 04/06/2010 Patient Education: Patient Medication Summary Completed 04/06/2010 Visit Plan: Paperwork filled out for pow erchair Depomedrol/kenalog given Pt sees ENT in 2wks to assess nasal obstruction problems 02/09/2010 Appointment: Belia Reid WPtel: [address] [place] [address] ESTABLISHED PATIENT 02/09/2010 Patient Education: Patient Medication Summary Completed 02/09/2010 Visit Plan: Change Elavil to Trazadone 1 50mg q HS Diflucan and nystatin for tinea cruris 01/05/2010 Appointment: Belia Reid WPtel: [address] [place] [address] FOLLOW UP 01/05/2010 Patient Education: Patient Medication Summary Completed 01/05/2010 Appointment: Belia Reidtel: [address] [place] [address] FOLLOW UP 12/07/2009 Patient Education: Patient Medication Summary Completed 12/07/2009 Appointment: Belia Reid WPtel: [address] [place] [address] FOLLOW UP 11/22/2009 Visit Plan: Cont current meds and await MRI results from Dr. Meadows's office and his final recommendations Will need to follow-up at later date on deviated septum 11/08/2009 Appointment: Belia Reid WPtel: [address] [place], [place] [phone] FOLLOW UP 11/08/2009 Patient Education: Patient Medication Summary Completed 11/08/2009 Visit Plan: Cont PT/OT See Neurosurgery Cont Tortoise shell brace 10/24/2009 Appointment: Belia Reid WPtel: [address] [place] [address] FOLLOW UP 10/24/2009 Patient Education: Patient Medication Summary Completed 10/24/2009 Appointment: Belia Reid WPtel: [address] [place] [address] Hospital Follow Up 10/17/2009 Appointment: Belia Reid WPtel: [address] [place] [address] ACUTE ILLNESS 07/25/2009 Patient Education: Patient Medication Summary Completed 07/25/2009 Appointment: Belia Reid WPtel: [address] [place] [address] FOLLOW UP 05/26/2009 Patient Education: Patient Medication Summary Completed 05/26/2009 Referral: Chino Balderas WPtel: [address] Referral Initiated Referral: Merry Vale WPtel: [facility] [id number] Vale will review referral and book appointment Completed Referral: Francisco Javier Yoder WPtel: [address] [id number] Patient needs EGD insurance will not inc rease a medication unless this procedure results show a need Completed Referral: Francisco Javier Yoder WPtel: [address] [id number] [place] Referral Historical Reference Referral: Francisco Javier Yoder WPtel: [address] [place] [address] [place] Referral Initiated Instructions Comment . 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 Long [...] Obtain lab results including UA from [facility] . Continue Bystolic at current [...] from "generic Zyrtec they are getting from [employer]" and try Singulair for 2 weeks. . [...]
--- OUTSIDE RECORDS SUMMARY | 2019-06-23 18:05 | XMS REPORT | CCD ---
Author Author Diana Reid D.O. Organization [facility] Address [address] [place] [address] Phone Care Team Providers Care Smoke Eater Name Role Phone [facility] D.[facility] PP Unavailable CCM Unavailable Summary Purpose Interface Exchange Insurance Providers Payer name Policy type / Coverage type Covered libertarian ID Effective Begin Date Effective End Date [employer] MEDICARE Medicare Part B [id number] 2019 Unknown Family History Family History data not found Social History Social History Element Codes Description Effective Dates Tobacco history SNOMED CT: 315694926 Nonsmoker 09/13/2010 Allergies, Adverse Reactions, Alerts Substance Reaction Codes Entered Date Inactivated Date Status Eggs reaction [id number] 09/15/2015 No Inactive Date Active _ Unknown 01/07/2019 No Inactive Date Active PENICILLINS Unknown 01/07/2019 No Inactive Date Active SULFA (SULFONAMIDES) rash Unknown 11/02/2010 No Inactive Mike e Active Problems Condition Codes Effective Dates Condition Status COUGH ICD-9: 786.2 ICD-10: R05 02/28/2016 Active Stridor ICD-9: 786.1 ICD-10: R06.1 05/02/2016 Active Muscle, jerky movements (uncontrolled) ICD-9: 333.5 [...] cruris ICD-9: 110.3 ICD-10: B35.6 05/07/2017 Active Chronic obstructive pulmonary disease, unspecified ICD -9: 496 ICD-10: J44.9 09/14/2015 Active Follicular disorder, unspecified ICD-9: 704.8 ICD-10: [...] mplication ICD-9: 250.00 ICD-10: E11.29 04/01/2014 Active Muscle weakness (generalized) ICD-9: 728.87 ICD-10: M62.81 09/15/2015 Active Other intervertebral disc degeneration, lumbar region [...] Start Date Stop Date Status Fill Instructions Singulair 10 mg tablet RxNorm: 719697 1 Tablet(s) Oral QPM 05/06/19 20 06/05/2019 Active gabapentin 600 mg tablet RxNorm: 223122 1 Tablet(s) Oral QD 020 06/05/2019 Active Valium 5 mg tablet RxNorm: 511654 1 Tablet(s) Oral QPM for stri joao/muscle spasm 04/29/2019 05/29/2019 Active baclofen 10 mg tablet RxNorm: 779995 1 Tablet(s) Oral QPM for s pasm/neck pain 04/24/2019 05/23/2019 Active baclofen 10 mg tablet RxNorm: 707266 1 Tablet(s) Oral QPM for s pasm/neck pain 04/24/2019 04/23/2019 Inactive Novolin N NPH U-100 Insulin isophane 100 unit/mL subcu taneous susp RxNorm: 497744 23 Unit(s) Subcutaneous two times a day 04/20/2019 No Stop Date A ctive cyclobenzaprine 5 mg tablet RxNorm: 697022 1 Tablet(s) Oral three times a day as needed 04/16/2019 04/23/2019 Inactive hydroxyzine HCl 25 mg tablet RxNorm: 302093 1 Tablet(s) Oral three times a day for itching/aniety 04/08/2019 06/07/2019 Active gabapentin 600 mg tablet RxNorm: 436000 1 Tablet(s) Oral two ti mes a day 04/08/2019 05/05/2019 Inactive gabapentin 600 mg tablet RxNorm: 674997 1 Tablet(s) Oral two ti mes a day 04/08/2019 04/07/2019 Inactive Novolin N NPH U-100 Insulin isophane 100 unit/mL subcu taneous susp RxNorm: 635218 10 Unit(s) Subcutaneous two times a day 03/03/2019 04/19/2019 I nactive gabapentin 300 mg capsule RxNorm: 182838 1 Capsule(s) O ral every night at bedtime for neuropathy 02/26/2019 04/07/2019 Inactive gabapentin 300 mg capsule RxNorm: 177375 1 Capsule(s) O ral every night at bedtime for neuropathy 02/20/2019 02/25/2019 Inactive buspirone 5 mg tablet RxNorm: 709152 TAKE 1 TABLET THREE TIMES MILDRED Y 02/12/2019 No Stop Date Active pramipexole 1 mg tablet RxNorm: 999059 1 Tablet(s) Oral QPM FOR RESTLESS LEGS (REPLACES REQUIP) 02/12/2019 02/07/2020 Active Lexapro 10 mg tablet RxNorm: 536671 TAKE 1 TABLET EVERY DAY FOR MOO D 01/31/2019 No Stop Date Active Ativan 0.5 mg tablet RxNorm: 491013 TAKE 1 TABLET BY MO UT THREE TIMES DAILY NEEDED FOR ANXIETY 01/26/2019 04/28/2019 Inactive Ativan 0.5 mg tablet RxNorm: 373868 TAKE 1 TABLET BY MO UT THREE TIMES DAILY NEEDED FOR ANXIETY 01/05/2019 01/05/2019 Inactive Levaquin 500 mg tablet RxNorm: 446851 1 Tablet(s) Oral QD 12/25/2018 12/24/2018 Inactive Levaquin 500 mg tablet RxNorm: 157123 1 Tablet(s) Oral QD 12/25/2018 01/04/2019 Inactive baclofen 10 mg tablet RxNorm: 611197 1 Tablet(s) Oral three maico es a day 11/20/2018 01/19/2019 Inactive Ativan 0.5 mg tablet RxNorm: 332096 TAKE 1 TABLET BY [facility] THREE TIMES DAILY NEEDED FOR ANXIETY 11/20/2018 01/04/2019 Inactive gabapentin 300 mg capsule RxNorm: 101501 1 Capsule(s) O ral every night at bedtime for neuropathy 11/20/2018 12/20/2018 Inactive Lexapro 10 mg tablet RxNorm: 218172 1 Tablet(s) PO QD for mood 07/201801/30/2019 Inactive Zithromax Z-Lj 250 mg tablet RxNorm: 866925 Tablet(s) PO take as directed 11/04/2018 11/19/2018 Inactive Insulin Syringe 1 mL 29 gauge x 1/2" RxNorm: 2 s yringes daily with insulin Dx: E11.65 10/08/2018 No Stop Date Active gabapentin 300 mg capsule RxNorm: 274917 1 Capsule(s) PO QHS fo r neuropathy 09/18/2018 10/17/2018 Inactive cyclobenzaprine 5 mg tablet RxNorm: 834973 1 Tablet(s) PO TID a s needed 09/09/2018 09/08/2018 Inactive cyclobenzaprine 5 mg tablet RxNorm: 210024 1 Tablet(s) PO TID a s needed 09/09/2018 10/08/2018 Inactive prednisone 20 mg tablet RxNorm: 479548 1 Tablet(s) PO QD 09/08/2018 0 09/12/2018 Inactive Lantus Solostar U-100 Insulin 100 unit/mL (3 mL) subcu taneous pen RxNorm: 670316 55 Unit(s) SQ QAM 08/28/2018 11/03/2018 Inactive hydroxyzine HCl 25 mg tablet RxNorm: 792689 1 Tablet(s) PO QHS for itching 08/20/2018 10/18/2018 Inactive Lexapro 10 mg tablet RxNorm: 877952 1 Tablet(s) PO QD for mood 08/0210/18/2018 Inactive sumatriptan 100 mg tablet RxNorm: 726954 1 Tablet(s) PO at headache onset. May repeat 1 in two hours if headache remains. Max of 2 per 24 hours 04/02/2018 05/20/2018 Inactive Diflucan 150 mg tablet RxNorm: 156928 1 Tablet(s) PO QD 03/18/2018 Inactive Diflucan 150 mg tablet RxNorm: 357453 1 Tablet(s) PO QD 03/18/2018 Inactive Flagyl 500 mg tablet RxNorm: 270850 1 Tablet(s) PO TID 03/17/2018 Inactive Levaquin 500 mg tablet RxNorm: 166736 1 Tablet(s) PO QD 03/17/2018 Inactive Levaquin 500 mg tablet RxNorm: 212179 1 Tablet(s) PO QD 03/17/2018 Inactive Flagyl 500 mg tablet RxNorm: 477055 1 Tablet(s) PO TID 03/17/2018 Inactive ketoconazole 200 mg tablet RxNorm: 964884 1 Tablet(s) PO QD 019 03/19/2018 Inactive Celebrex 200 mg capsule RxNorm: 560418 1 Capsule(s) PO BID 02/06/20 18 05/20/2018 Inactive tramadol 50 mg tablet RxNorm: 466574 1 Tablet(s) PO TID as needed 1 04/08/2017 05/20/2018 Inactive gabapentin 300 mg capsule RxNorm: 869089 1 Capsule(s) PO BID 201705/20/2018 Inactive Diflucan 150 mg tablet RxNorm: 861921 1 Tablet(s) PO QD 01/20/2018 Inactive pramipexole 1 mg tablet RxNorm: 583816 1 Tablet(s) PO Q PM FOR RESTLESS LEGS (REPLACES REQUIP) 01/08/2018 02/11/2019 Inactive cyclobenzaprine 10 mg tablet RxNorm: 422320 1 Tablet(s) PO TID as needed for muscle spasm 12/17/2017 05/20/2018 Inactive pramipexole 1 mg tablet RxNorm: 725668 TAKE 1 TABLET BY MOUTH ONCE DAILY IN THE EVENING FOR RESTLESS LEGS (REPLACES REQUIP) 12/04/2017 01/05/2018 Inac tive Amaryl 4 mg tablet RxNorm: 397447 1 Tablet(s) PO BID replaces 2mg 0 11/05/2017 12/16/2017 Inactive Singulair 10 mg tablet RxNorm: 359093 1 Tablet(s) PO QHS for al lergies/lungs 10/30/2017 12/16/2017 Inactive Diflucan 100 mg tablet RxNorm: 810850 1 Tablet(s) PO QD 10/23/2017 Inactive Ativan 0.5 mg tablet RxNorm: 045391 TAKE 1 TABLET BY MOUTH THRE E TIMES DAILY 08/30/2017 11/20/2018 Inactive buspirone 5 mg tablet RxNorm: 893153 1 Tablet(s) PO TID 07/11/2017 Inactive propranolol 60 mg tablet RxNorm: 557015 1 Tablet(s) PO BID repl aces 40mg dose 06/26/2017 12/16/2017 Inactive Amaryl 4 mg tablet RxNorm: 806269 1 Tablet(s) PO BID replaces 2mg 0 06/12/2017 11/05/2017 Inactive omeprazole 40 mg capsule,delayed release RxNorm: 429124 1 Capsule(s) PO BID TAKE ONE CAPSULE BY MOUTH TWICE DAILY 05/30/2017 11/25/2017 Inactive pramipexole 1 mg tablet RxNorm: 024598 1 Tablet(s) PO Q PM for restless legs--replaces requip 05/30/2017 11/25/2017 Inactive amitriptyline 50 mg tablet RxNorm: 156929 1 Tablet(s) PO QHS 201709/16/2017 Inactive Diflucan 100 mg tablet RxNorm: 927003 1 Tablet(s) PO BID 05/07/2017 0 05/20/2017 Inactive nystatin (bulk) 100 million unit powder RxNorm: Application TO P BID 05/07/2017 05/20/2018 Inactive cholestyramine (with sugar) 4 gram oral powder RxNorm: 558674 1 Unit Dose PO QD 05/07/2017 01/20/2018 Inactive Ativan 0.5 mg tablet RxNorm: 903728 TAKE ONE TABLET BY MOUTH TH REE TIMES DAILY 05/01/2017 09/02/2017 Inactive Trulicity 1.5 mg/0.5 mL subcutaneous pen injector RxNorm: 15 89109 1 Unit Dose SQ WEEKLY 02/22/2017 03/23/2017 Inactive doxycycline hyclate 100 mg capsule RxNorm: 2464417 1 Capsule(s) PO BID 01/23/2017 02/05/2017 Inactive Amaryl 4 mg tablet RxNorm: 104479 1 Tablet(s) PO BID replaces 2mg 1 03/25/2016 05/22/2017 Inactive magnesium oxide 400 mg capsule RxNorm: 733582 1 Capsule(s) PO QD 07/18/2017 Inactive Ativan 0.5 mg tablet RxNorm: 905698 TAKE ONE TABLET BY MOUTH TH REE TIMES DAILY 01/17/2017 05/01/2017 Inactive Amaryl 2 mg tablet RxNorm: 566371 1 Tablet(s) PO BID 12/27/201601/22 Inactive Amaryl 2 mg tablet RxNorm: 509492 1 Tablet(s) PO BID 12/26/201612/26 Inactive Ativan 0.5 mg tablet RxNorm: 281721 TAKE ONE TABLET BY MOUTH TH REE TIMES DAILY 12/05/2016 01/18/2017 Inactive pramipexole 1 mg tablet RxNorm: 020475 1 Tablet(s) PO Q PM for restless legs--replaces requip 11/26/2016 05/30/2017 Inactive Mobic 15 mg tablet RxNorm: 144063 1 Tablet(s) PO QD 10/08/20162016 Inactive cyclobenzaprine 5 mg tablet RxNorm: 043094 1/2- 1 Tablet(s) PO TID 10/08/2016 10/17/2016 Inactive Ativan 0.5 mg tablet RxNorm: 632944 1 Tablet(s) PO TID 09/20/201607/2016 Inactive amitriptyline 50 mg tablet RxNorm: 275853 1 Tablet(s) PO QHS 201605/30/2017 Inactive propranolol 60 mg tablet RxNorm: 607684 1 Tablet(s) PO BID repl aces 40mg dose 09/19/2016 06/26/2017 Inactive Ativan 0.5 mg tablet RxNorm: 473563 1 Tablet(s) PO TID 08/20/2016 Inactive omeprazole 40 mg capsule,delayed release RxNorm: 071859 1 Capsule(s) PO BID TAKE ONE CAPSULE BY MOUTH TWICE DAILY 08/20/2016 05/30/2017 Inactive amitriptyline 50 mg tablet RxNorm: 690250 1 Tablet(s) PO QHS 201609/18/2016 Inactive pramipexole 1 mg tablet RxNorm: 036164 1 Tablet(s) PO Q PM for restless legs--replaces requip 07/23/2016 11/25/2016 Inactive Amaryl 2 mg tablet RxNorm: 109880 1 Tablet(s) PO BID 07/23/201612/27 Inactive propranolol 40 mg tablet RxNorm: 806978 1 Tablet(s) PO BID 07/13/19 17 09/18/2016 Inactive Ativan 0.5 mg tablet RxNorm: 377332 1 Tablet(s) PO QID 06/19/2016 Inactive Amaryl 2 mg tablet RxNorm: 029796 1 Tablet(s) PO BID 06/19/201607/22 Inactive Ativan 0.5 mg tablet RxNorm: 805164 1 Tablet(s) PO QID 06/19/2016 Inactive buspirone 5 mg tablet RxNorm: 416577 1 Tablet(s) PO TID 06/19/2016 Inactive Ativan 0.5 mg tablet RxNorm: 443622 1 Tablet(s) PO BID 05/24/2016 Inactive buspirone 5 mg tablet RxNorm: 106557 1 Tablet(s) PO TID 05/23/2016 Inactive Macrobid 100 mg capsule RxNorm: 359857 1 Capsule(s) PO QOD 05/03/19 17 10/07/2016 Inactive pramipexole 1 mg tablet RxNorm: 146451 Tablet(s) 1 Tabl et(s) PO QPM for restless legs--replaces requip 04/26/2016 06/24/2016 Inactive propranolol 40 mg tablet RxNorm: 003888 TAKE ONE TABLET BY MOUT H TWICE DAILY 04/26/2016 06/24/2016 Inactive Detrol LA 4 mg capsule,extended release RxNorm: 146678 1 Capsul e(s) PO QHS 04/03/2016 05/02/2016 Inactive prednisone 20 mg tablet RxNorm: 452654 1 Tablet(s) PO QD 02/29/2016 0 03/04/2016 Inactive Actos 30 mg tablet RxNorm: 543445 TAKE ONE TABLET BY MOUTH ONCE DAILY 02/27/2016 12/19/2016 Inactive clindamycin 300 mg capsule RxNorm: 774169 1 Capsule(s) PO TID 02/0102/08/2016 Inactive Flagyl 500 mg tablet RxNorm: 826646 1 Tablet(s) PO BID 02/02/201609/2015 Inactive omeprazole 40 mg capsule,delayed release RxNorm: 839543 TAKE ONE CAPSULE BY MOUTH TWICE DAILY 01/15/2016 07/12/2016 Inactive gabapentin 300 mg capsule RxNorm: 915657 1 Capsule(s) PO QAM an d 2 po q HS 01/05/2016 06/18/2016 Inactive gabapentin 300 mg capsule RxNorm: 189274 1 Capsule(s) P O BID 1 Capsule(s) PO QHS 12/05/2015 01/04/2016 Inactive cyclobenzaprine 10 mg tablet RxNorm: 741332 1 Tablet(s) PO TID for spasm as needed for muscle spasm 12/05/2015 06/18/2016 Inactive ciprofloxacin 250 mg tablet RxNorm: 186064 1 Tablet(s) PO BID 12/0412/14/2015 Inactive pramipexole 1 mg tablet RxNorm: 422307 Tablet(s) 1 Tabl et(s) PO QPM for restless legs--replaces requip 11/07/2015 11/26/2016 Inactive Januvia 100 mg tablet RxNorm: 974031 1 Tablet(s) PO QD 10/26/201504/2015 Inactive propranolol 40 mg tablet RxNorm: 694695 TAKE ONE TABLET BY MOUT H TWICE DAILY 10/25/2015 04/21/2016 Inactive gabapentin 300 mg capsule RxNorm: 965568 1 Capsule(s) PO QHS 201512/04/2015 Inactive Cipro 500 mg tablet RxNorm: 462766 1 Tablet(s) PO BID 10/05/201511/2015 Inactive pramipexole 1 mg tablet RxNorm: 172207 Tablet(s) 1 Tabl et(s) PO QPM for restless legs--replaces requip 10/04/2015 11/02/2015 Inactive propranolol 40 mg tablet RxNorm: 503085 TAKE ONE TABLET BY MOUT H TWICE DAILY 09/26/2015 10/24/2015 Inactive Amaryl 2 mg tablet RxNorm: 358540 1 Tablet(s) PO QD 09/15/20152016 Inactive gabapentin 300 mg capsule RxNorm: 131270 1 Capsule(s) PO QHS 201510/14/2015 Inactive buspirone 5 mg tablet RxNorm: 619803 1 Tablet(s) PO TID 09/15/2015 Inactive pramipexole 1 mg tablet RxNorm: 811649 Tablet(s) 1 Tabl et(s) PO QPM for restless legs--replaces requip 09/08/2015 10/03/2015 Inactive pramipexole 1 mg tablet RxNorm: 169342 1 Tablet(s) PO Q PM for restless legs--replaces requip 08/08/2015 09/08/2015 Inactive Amaryl 2 mg tablet RxNorm: 838950 1 Tablet(s) PO QD 07/07/20152015 Inactive pramipexole 1 mg tablet RxNorm: 042173 1 Tablet(s) PO Q PM for restless legs--replaces requip 07/05/2015 08/03/2015 Inactive ropinirole 2 mg tablet RxNorm: 098512 TAKE ONE TABLET BY MOUTH TWICE DAILY 05/09/2015 09/14/2015 Inactive Diflucan 100 mg tablet RxNorm: 508388 1 Tablet(s) PO QD 03/30/2015 Inactive propranolol 40 mg tablet RxNorm: 193549 1 Tablet(s) PO BID 02/24/20 15 08/21/2015 Inactive [SAVINGS FOR UNINSURED PATIE NTS -- BIN:609948, PCN: ASPROD1, Group: AME08, ID# [id number], Process claim through studdex, for questions: . THIS IS NOT INSURANCE.] Flagyl 500 mg tablet RxNorm: 917895 1 Tablet(s) PO BID 02/03/201502/2015 Inactive Cipro 500 mg tablet RxNorm: 041530 1 Tablet(s) PO BID 02/03/201502/01 Inactive Carafate 1 gram tablet RxNorm: 578435 1 Tablet(s) PO QID make i nto slurry 02/03/2015 09/14/2015 Inactive ondansetron HCl 4 mg tablet RxNorm: 318072 1 Tablet(s) PO Q4H as needed for nausea 12/29/2014 01/04/2016 Inactive Diflucan 100 mg tablet RxNorm: 326950 1 Tablet(s) PO QD 12/29/2014 Inactive Keflex 500 mg capsule RxNorm: 829947 1 Capsule(s) PO TID 12/29/2014 1 03/09/2014 Inactive omeprazole 40 mg capsule,delayed release RxNorm: 816200 1 Capsu le(s) PO BID 12/27/2014 12/21/2015 Inactive [SAVINGS FOR UNINSUR ED PATIENTS -- BIN:584752, PCN: ASPROD1, Group: AME08, ID# [id number], Process claim through MedImpact, for questions: . THIS IS NOT INSURANCE.] ropinirole 2 mg tablet RxNorm: 480028 1 Tablet(s) PO BID 09/29/2014 0 03/27/2015 Inactive [SAVINGS FOR UNINSURED PATIENTS -- BIN:0 67587, PCN: ASPROD1, Group: AME08, ID# [id number], Process claim through MedImpact, for questions: . THIS IS NOT INSURANCE.] buspirone 5 mg tablet RxNorm: 125137 1 Tablet(s) PO TID 09/17/2014 Inactive ropinirole 2 mg tablet RxNorm: 474285 1 Tablet(s) PO BID 09/02/2014 0 09/28/2014 Inactive [SAVINGS FOR UNINSURED PATIENTS -- BIN:0 86939, PCN: ASPROD1, Group: AME08, ID# [id number], Process claim through MedImpact, for questions: . THIS IS NOT INSURANCE.] Zyrtec 10 mg tablet RxNorm: 6275142 1 Tablet(s) PO QD 09/02/201412/02 Inactive propranolol 40 mg tablet RxNorm: 685516 1 Tablet(s) PO BID 07/21/19 15 02/23/2015 Inactive [SAVINGS FOR UNINSURED PATIE NTS -- BIN:888350, PCN: ASPROD1, Group: AME08, ID# [id number], Process claim through MedImpact, for questions: . THIS IS NOT INSURANCE.] ropinirole 2 mg tablet RxNorm: 000510 1 Tablet(s) PO QHS 05/14/2014 0 09/01/2014 Inactive [SAVINGS FOR UNINSURED PATIENTS -- BIN:0 88673, PCN: ASPROD1, Group: AME08, ID# [id number], Process claim through MedImpact, for questions: . THIS IS NOT INSURANCE.] cyclobenzaprine 10 mg tablet RxNorm: 750719 1 Tablet(s) PO QHS for spasm 04/06/2014 09/01/2014 Inactive ipratropium-albuterol 0.5 mg-3 mg(2.5 mg base)/3 mL ne bulization soln RxNorm: 5061214 1 Unit Dose INH Q4H 03/16/2014 No Stop Date Active [SAVINGS FOR UNINSURED PATIENTS -- BIN:745612, PCN: ASPROD1, Group: AME08, ID# [id number], Process claim through MedImpact, for questions: . THIS IS NOT INSURANCE.] prednisone 20 mg tablet RxNorm: 360980 1 Tablet(s) PO BID 03/09/2014 03/15/2014 Inactive [SAVINGS FOR UNINSURED PATIENTS -- BIN:0 99287, PCN: ASPROD1, Group: AME08, ID# [id number], Process claim through MedImpact, for questions: . THIS IS NOT INSURANCE.] ipratropium-albuterol 0.5 mg-3 mg(2.5 mg base)/3 mL ne bulization soln RxNorm: 0362251 1 Unit Dose INH Q4H 03/09/2014 03/15/2014 Inactive [SAVINGS FOR UNINSURED PATIENTS -- BIN:235378, PCN: ASPROD1, Group: AME08, ID# [id number], Process claim through MedImpact, for questions: . THIS IS NOT INSURANCE.] Levaquin 500 mg tablet RxNorm: 227830 1 Tablet(s) PO QD 03/09/2014 Inactive [SAVINGS FOR UNINSURED PATIENTS -- BIN:0 65953, PCN: ASPROD1, Group: AME08, ID# [id number], Process claim through MedImpact, for questions: . THIS IS NOT INSURANCE.] Carafate 1 gram tablet RxNorm: 119283 1 Tablet(s) PO AC & HS ma ke into slurry 02/09/2014 09/01/2014 Inactive [SAVINGS FOR UNINSUR ED PATIENTS -- BIN:603389, PCN: ASPROD1, Group: AME08, ID# [id number], Process claim through MedImpact, for questions: . THIS IS NOT INSURANCE.] Fioricet 50 mg-300 mg-40 mg capsule RxNorm: 8365852 1-2 Capsule(s) PO Q4H as needed for headache --max of 6 a day 02/09/2014 09/01/2014 Inactive [SAVINGS FOR UNINSURED PATIENTS -- BIN:943944, PCN: ASPROD1, Group: AME08, ID# [id number], Process claim through MedImpact, for questions: . THIS IS NOT INSURANCE.] propranolol 40 mg tablet RxNorm: 609895 1 Tablet(s) PO BID 12/08/19 14 06/04/2014 Inactive [SAVINGS FOR UNINSURED PATIE NTS -- BIN:089497, PCN: ASPROD1, Group: AME08, ID# [id number], Process claim through MedImpact, for questions: . THIS IS NOT INSURANCE.] buspirone 5 mg tablet RxNorm: 425692 1 Tablet(s) PO TID 12/02/2013 Inactive omeprazole 40 mg capsule,delayed release RxNorm: 592137 1 Capsu le(s) PO BID 11/25/2013 11/19/2014 Inactive [SAVINGS FOR UNINSUR ED PATIENTS -- BIN:913538, PCN: ASPROD1, Group: AME08, ID# [id number], Process claim through MedImpact, for questions: . THIS IS NOT INSURANCE.] ropinirole 2 mg tablet RxNorm: 148172 1 Tablet(s) PO QHS 11/10/2013 0 05/08/2014 Inactive [SAVINGS FOR UNINSURED PATIENTS -- BIN:0 88163, PCN: ASPROD1, Group: AME08, ID# [id number], Process claim through MedImpact, for questions: . THIS IS NOT INSURANCE.] Cipro 500 mg tablet RxNorm: 797312 1 Tablet(s) PO BID 10/21/201312/03 Inactive [SAVINGS FOR UNINSURED PATIENTS -- BIN:0 44127, PCN: ASPROD1, Group: AME08, ID# [id number], Process claim through MedImpact, for questions: . THIS IS NOT INSURANCE.] hydroxyzine HCl 25 mg tablet RxNorm: 561220 1 Tablet(s) PO Q4-6 H as needed 10/05/2013 01/04/2016 Inactive [SAVINGS FOR UNINSUR ED PATIENTS -- BIN:052013, PCN: ASPROD1, Group: AME08, ID# [id number], Process claim through MedImpact, for questions: . THIS IS NOT INSURANCE.] triamcinolone acetonide 0.1 % topical cream RxNorm: 6598357 Appl ication TOP BID 10/05/2013 09/01/2014 Inactive [SAVINGS FOR UNINSUR ED PATIENTS -- BIN:474287, PCN: ASPROD1, Group: AME08, ID# [id number], Process claim through MedImpact, for questions: . THIS IS NOT INSURANCE.] albuterol sulfate HFA 90 mcg/actuation aerosol inhaler RxNor m: 1886510 2 Puff(s) INH Q4H as needed for cough 10/01/2013 12/22/2013 Inactive [MAKSIM INGS FOR UNINSURED PATIENTS -- BIN:468822, PCN: ASPROD1, Group: AME08, ID# [id number], Process claim through MedImpact, for questions: . THIS IS NOT INSURANCE.] propranolol 40 mg tablet RxNorm: 664851 1 Tablet(s) PO BID 09/02/19 14 11/29/2013 Inactive [SAVINGS FOR UNINSURED PATIE NTS -- BIN:413497, PCN: ASPROD1, Group: AME08, ID# [id number], Process claim through MedImpact, for questions: . THIS IS NOT INSURANCE.] propranolol 40 mg tablet RxNorm: 385653 1 Tablet(s) PO BID 08/05/19 14 08/31/2013 Inactive [SAVINGS FOR UNINSURED PATIE NTS -- BIN:667098, PCN: ASPROD1, Group: AME08, ID# [id number], Process claim through MedImpact, for questions: . THIS IS NOT INSURANCE.] Toprol XL 50 mg tablet,extended release RxNorm: 752270 1 Tablet (s) PO QHS 07/23/2013 08/03/2013 Inactive Macrobid 100 mg capsule RxNorm: 542596 1 Capsule(s) PO BID 07/04/19 14 07/09/2013 Inactive Toprol XL 50 mg tablet,extended release RxNorm: 092091 1 Tablet (s) PO QHS 05/28/2013 06/26/2013 Inactive ciprofloxacin 500 mg tablet RxNorm: 780733 1 Tablet(s) PO BID 05/2706/02/2013 Inactive Bystolic 5 mg tablet RxNorm: 740550 1 Tablet(s) PO QD 05/27/201305/03 Inactive ropinirole 2 mg tablet RxNorm: 916499 1 Tablet(s) PO QHS 04/22/2013 0 11/09/2013 Inactive Cipro 250 mg tablet RxNorm: 172624 1 Tablet(s) PO BID 04/06/201311/2013 Inactive ropinirole 2 mg tablet RxNorm: 119288 1 Tablet(s) PO QHS 02/17/2013 0 04/21/2013 Inactive Amaryl 2 mg tablet RxNorm: 772605 1 Tablet(s) PO QAM 11/11/201211/10 Inactive Amaryl 2 mg tablet RxNorm: 177134 1 Tablet(s) PO QAM 11/11/201204/05 Inactive omeprazole 40 mg capsule,delayed release RxNorm: 040433 1 Capsu le(s) PO BID 08/14/2012 08/08/2013 Inactive Bystolic 5 mg tablet RxNorm: 980247 1 Tablet(s) PO QD 08/14/201205/03 Inactive propranolol 60 mg tablet RxNorm: 723488 Tablet(s) PO TAKE 1 TAB LET TWICE DAILY 08/01/2012 09/01/2012 Inactive Bystolic 5 mg tablet RxNorm: 228979 1 Tablet(s) PO QD 07/21/201207/02 Inactive Bystolic 5 mg tablet RxNorm: 669236 1 Tablet(s) PO QD 07/21/201207/03 Inactive Prilosec 40 mg capsule,delayed release RxNorm: 857510 1 Capsule (s) PO BID 06/24/2012 07/21/2012 Inactive buspirone 10 mg tablet RxNorm: 331743 1 Tablet(s) PO TID 05/08/2012 0 05/23/2016 Inactive Valium 10 mg tablet RxNorm: 542914 1 Tablet(s) PO BID 04/02/201207/03 Inactive Endocet 10 mg-325 mg tablet RxNorm: 3343799 1 Tablet(s) PO QID 03/0607/21/2012 Inactive as needed for severe pain Valium 10 mg tablet RxNorm: 650838 1 Tablet(s) PO BID 02/27/2012 No S top Date Active Endocet 10 mg-325 mg tablet RxNorm: 1899400 1 Tablet(s) PO QID 02/0203/27/2012 Inactive as needed for severe pain Endocet 10 mg-325 mg tablet RxNorm: 2762147 1 Tablet(s) PO QID 01/0302/26/2012 Inactive as needed for severe pain Valium 10 mg tablet RxNorm: 895923 1 Tablet(s) PO BID 01/29/2012 No S top Date Active Protonix 40 mg tablet,delayed release RxNorm: 736937 1 Tablet(s ) PO QD 01/28/2012 07/21/2012 Inactive metformin ER 500 mg tablet,extended release 24 hr RxNorm: 86 0977 1 Tablet(s) PO QD 12/26/2011 07/20/2012 Inactive Trazadone 150 mg Tablet RxNorm: 1 Tablet(s) PO QHS prn sleep 1 04/23/2012 Inactive Endocet 10 mg-325 mg tablet RxNorm: 2579492 1 Tablet(s) PO QID 12/0301/24/2012 Inactive as needed for severe pain Nexium 40 mg capsule,delayed release RxNorm: 794448 1 Capsule(s ) PO QD 12/26/2011 01/27/2012 Inactive Symbicort 160 mcg-4.5 mcg/actuation HFA Aerosol Inhaler RxNo rm: 3481975 2 Puff(s) INH BID 12/04/2011 07/21/2012 Inactive Endocet 10 mg-325 mg tablet RxNorm: 6175236 1 Tablet(s) PO QID 11/0312/25/2011 Inactive as needed for severe pain metformin ER 500 mg tablet,extended release 24 hr RxNorm: 86 0977 1 Tablet(s) PO QD 11/20/2011 12/19/2011 Inactive metformin ER 500 mg tablet,extended release 24 hr RxNorm: 86 0977 1 Tablet(s) PO QD 11/20/2011 11/19/2011 Inactive amitriptyline 100 mg tablet RxNorm: 048445 Tablet(s) PO QHS 1 a nd 1/2 tabs QHS 11/12/2011 11/13/2011 Inactive Valium 10 mg tablet RxNorm: 027996 1 Tablet(s) PO BID 11/09/2011 No S top Date Active Endocet 10 mg-325 mg tablet RxNorm: 5772505 1 Tablet(s) PO QID 10/0211/14/2011 Inactive as needed for severe pain Aricept 10 mg Tab RxNorm: 171831 1 Tablet(s) PO QD 10/05/2011 013 Inactive Valium 10 mg tablet RxNorm: 522212 1 Tablet(s) PO BID 10/05/2011 No S top Date Active Endocet 10 mg-325 mg Tab RxNorm: 5416190 1 Tablet(s) PO QID 012 10/09/2011 Inactive as needed for severe pain Aricept 10 mg Tab RxNorm: 077182 1 Tablet(s) PO QD 08/14/2011 012 Inactive Endocet 10 mg-325 mg Tab RxNorm: 4540492 1 Tablet(s) PO QID 012 08/31/2011 Inactive as needed for severe pain Valium 10 mg Tab RxNorm: 135956 1 Tablet(s) PO BID 08/02/2011 No Stop Date Active propranolol 60 mg tablet RxNorm: 679057 1 Tablet(s) PO BID 07/26/19 12 09/11/2011 Inactive amitriptyline 100 mg tablet RxNorm: 666718 Tablet(s) PO QHS 1 a nd 2 tabs QHS 06/20/2011 09/11/2011 Inactive buspirone 10 mg tablet RxNorm: 130920 1 Tablet(s) PO BID 06/18/2011 0 09/15/2011 Inactive propranolol 60 mg Tab RxNorm: 059073 1 Tablet(s) PO BID 06/18/2011 Inactive gabapentin 800 mg Tab RxNorm: 581375 1 Tablet(s) PO BID 06/18/2011 Inactive ropinirole 2 mg tablet RxNorm: 481332 1 Tablet(s) PO QHS 05/29/2011 0 08/26/2011 Inactive trimethoprim 100 mg Tab RxNorm: 687211 1 Tablet(s) PO QHS 05/29/2011 07/21/2012 Inactive Endocet 10 mg-325 mg Tab RxNorm: 2158106 1 Tablet(s) PO QID 012 2011 Inactive as needed for severe pain Valium 10 mg Tab RxNorm: 686952 1 Tablet(s) PO QHS N eed to take med as prescribed. this is a 40 day RX. No early fills. 05/17/2011 05/20/2018 Inactive propranolol 60 mg Tab RxNorm: 137862 1 Tablet(s) PO BID 04/16/2011 Inactive Neurontin 800 mg Tab RxNorm: 988608 1 Tablet(s) PO QHS 04/05/201103/2011 Inactive Endocet 10 mg-325 mg Tab RxNorm: 8367114 1 Tablet(s) PO QID 012 05/02/2011 Inactive as needed for severe pain oxycodone-acetaminophen 10 mg-325 mg tablet RxNorm: 8063433 1 Ta blet(s) PO Q4H 03/28/2011 05/19/2012 Inactive Valium 10 mg Tab RxNorm: 116546 1 Tablet(s) PO QHS 03/28/2011 012 Inactive buspirone 10 mg Tab RxNorm: 503223 1 Tablet(s) PO BID 03/27/201106/02 Inactive propranolol 60 mg Tab RxNorm: 902118 1 Tablet(s) PO BID 03/19/2011 Inactive Klor-Con M20 20 mEq Tab RxNorm: 7623489 1 Tablet(s) PO QD 03/19/2011 07/21/2012 Inactive Aricept 10 mg Tab RxNorm: 208636 1 Tablet(s) PO QD 02/27/2011 012 Inactive propranolol 60 mg Tab RxNorm: 191396 1 Tablet(s) PO BID 02/19/2011 Inactive omeprazole 40 mg capsule,delayed release RxNorm: 774575 1 Capsu le(s) PO BID 01/24/2011 05/23/2011 Inactive clindamycin 300 mg capsule RxNorm: 067664 1 Capsule(s) PO TID 01/2402/02/2011 Inactive propranolol 60 mg Tab RxNorm: 535288 1 Tablet(s) PO BID 01/22/2011 No Stop Date Active nystatin 100,000 unit/g Topical Cream RxNorm: 652679 Applicatio n TOP BID 01/15/2011 01/14/2011 Inactive to rash for 2-4 week s Diflucan 200 mg Tab RxNorm: 057555 1 Tablet(s) PO QD 01/15/201101/28 Inactive buspirone 10 mg Tab RxNorm: 457664 1 Tablet(s) PO BID 01/08/201103/05 Inactive Valium 10 mg Tab RxNorm: 358304 1 Tablet(s) PO QHS 01/05/2011 012 Inactive Diflucan 200 mg Tab RxNorm: 342633 1 Tablet(s) PO QD 01/01/201101/14 Inactive Diflucan 200 mg Tab RxNorm: 521226 1 Tablet(s) PO QD 12/18/201012/31 Inactive Valium 10 mg Tab RxNorm: 127443 1 Tablet(s) PO QHS 12/12/2010 011 Inactive Diflucan 200 mg Tab RxNorm: 182520 1 Tablet(s) PO QD 12/07/201012/18 Inactive Aricept 10 mg Tab RxNorm: 824673 1 Tablet(s) PO QD 11/20/2010 011 Inactive ropinirole 1 mg Tab RxNorm: 981820 1 Tablet(s) PO QHS 11/16/201005/03 Inactive enalapril maleate 5 mg Tab RxNorm: 151813 1 Tablet(s) PO QD 011 05/20/2018 Inactive buspirone 10 mg Tab RxNorm: 925996 1 Tablet(s) PO BID 11/16/201012/02 Inactive Valium 10 mg Tab RxNorm: 201090 1 Tablet(s) PO QHS 11/07/2010 011 Inactive Pyridium 100 mg Tab RxNorm: 3914079 1 Tablet(s) PO TID 11/02/201004/2010 Inactive Macrobid 100 mg Cap RxNorm: 2988931 1 Capsule(s) PO BID 11/02/2010 Inactive buspirone 10 mg Tab RxNorm: 498797 1 Tablet(s) PO QHS 10/18/201005/02 Inactive propranolol 60 mg Tab RxNorm: 144469 1 Tablet(s) PO BID 09/18/2010 Inactive Valium 10 mg Tab RxNorm: 312087 1 Tablet(s) PO QHS 09/05/2010 011 Inactive Aricept 10 mg Tab RxNorm: 806172 1 Tablet(s) PO QD 08/14/2010 011 Inactive Valium 10 mg Tab RxNorm: 213877 1 Tablet(s) PO QHS 06/26/2010 011 Inactive ropinirole 1 mg Tab RxNorm: 145153 1 Tablet(s) PO QHS 06/19/201010/02 Inactive omeprazole 40 mg Cap, delayed release RxNorm: 784367 1 Capsule( s) PO QD 06/07/2010 10/04/2010 Inactive Endocet 10 mg-325 mg Tab RxNorm: 4958022 1 Tablet(s) PO QID as needed for severe pain 06/07/2010 03/07/2011 Inactive Endocet 10 mg-325 mg Tab RxNorm: 8912464 1 Tablet(s) PO QID as needed for severe pain 05/04/2010 06/02/2010 Inactive Valium 10 mg Tab RxNorm: 117569 1 Tablet(s) PO QHS 05/01/2010 011 Inactive propranolol 60 mg Tab RxNorm: 557282 1 Tablet(s) PO BID 04/03/2010 Inactive Valium 10 mg Tab RxNorm: 813834 1 Tablet(s) PO QHS 03/28/2010 011 Inactive omeprazole 40 mg Cap, Delayed Release RxNorm: 860563 1 Capsule( s) PO QD 03/28/2010 06/06/2010 Inactive Endocet 10 mg-325 mg Tab RxNorm: 1745684 1 Tablet(s) PO QID prn ari n 03/27/2010 05/20/2018 Inactive Valium 10 mg Tab RxNorm: 943024 1 Tablet(s) PO QHS 02/20/2010 011 Inactive Diflucan 100 mg Tab RxNorm: 682108 1 Tablet(s) PO BID 01/23/201003/2009 Inactive Diflucan 100 mg Tab RxNorm: 881044 1 Tablet(s) PO BID 01/05/201001/02 Inactive Aricept 10 mg Tab RxNorm: 150800 1 Tablet(s) PO QD 12/01/2009 011 Inactive OxyContin 20 mg 12 hr Tab RxNorm: 0368852 1 Tablet(s) PO BID 200904/05/2010 Inactive oxycodone-acetaminophen 10 mg-325 mg Tab RxNorm: 5578405 1 Table t(s) PO Q4H 11/22/2009 11/26/2009 Inactive Phenergan 25 mg Tab RxNorm: 858019 1 Tablet(s) PO PRN MIGRAINE 11/0303/07/2011 Inactive Demerol 100 mg Tab RxNorm: 320473 1 Tablet(s) PO PRN MIGRAINE 11/2203/07/2011 Inactive Oxycodone-Acetaminophen 10 mg-325 mg Tab RxNorm: 5926695 1 Table t(s) PO Q4H 10/11/2009 10/15/2009 Inactive Percocet 10 mg-325 mg Tab RxNorm: 3824672 1 Tablet(s) PO Q4H 200910/24/2009 Inactive propranolol 60 mg Tab RxNorm: 686059 1 Tablet(s) PO BID 08/29/2009 Inactive Valium 10 mg Tab RxNorm: 937888 1 Tablet(s) PO QHS 08/16/2009 010 Inactive Keflex 500 mg Cap RxNorm: 869169 1 Capsule(s) PO BID 07/25/200907/31 Inactive Hydroxyzine 25 mg Tab RxNorm: 421906 1 Tablet(s) PO TID 07/25/2009 Inactive Prednisone 20 mg Tab RxNorm: 996700 1 Tablet(s) PO BID 07/25/2009 Inactive Demerol 100 mg Tab RxNorm: 114677 1 Tablet(s) PO PRN MIGRAINE 07/25 No Stop Date Active Ropinirole 1 mg Tab RxNorm: 661623 1 Tablet(s) PO HS 07/20/200902/14 Inactive Valium 10 mg Tab RxNorm: 045205 1 Tablet(s) PO QHS 07/18/2009 010 Inactive Endocet 10 mg-325 mg Tab RxNorm: 3677073 1 Tablet(s) PO TID 010 07/07/2009 Inactive Demerol 100 mg Tab RxNorm: 729027 1 Tablet(s) PO PRN MIGRAINE 06/08 No Stop Date Active Ropinirole 1 mg Tab RxNorm: 642889 1 Tablet(s) PO HS 05/16/200907/14 Inactive ipratropium-albuterol 0.5 mg-3 mg(2.5 mg base)/3 mL ne bulization soln RxNorm: 5439861 1 Unit Dose INH Q4H as needed No Start Date Active diltiazem CD 240 mg capsule,extended release 24 hr RxNorm: 8 15066 1 Capsule(s) PO QD No Start Date Active metoprolol tartrate 25 mg tablet RxNorm: 548143 1 Tablet(s) PO BID No Start Date Active MagOx 400 mg (241.3 mg magnesium) tablet RxNorm: 377679 1 Table t(s) PO BID No Start Date Active Vitamin B12 1000mcg Tablet RxNorm: 1 Tablet(s) PO QD No Start Date Active Vitamin D3 5,000 unit tablet RxNorm: 185616 1 Tablet(s) PO QD No Star t Date Active Tylenol Arthritis Pain 650 mg tablet,extended release RxNorm : 0050343 1 Tablet(s) PO Q4H No Start Date Active Lotrimin AF 2 % topical powder RxNorm: 401263 1 Application TOP BID No Start Date Active enalapril maleate 5 mg Tab RxNorm: 712988 1 Tablet(s) PO QD No Star t Date 07/20/2012 Inactive Demerol 100 mg Tab RxNorm: 899997 Tablet(s) PO PRN MIGRAINE No Star t Date 06/02/2009 Inactive metformin 500 mg tablet RxNorm: 318647 1 Tablet(s) PO QD No Start D ate 04/05/2013 Inactive Breo Ellipta 100 mcg-25 mcg/dose powder for inhalation RxNor m: 4486836 1 Puff(s) INH BID No Start Date 01/04/2016 Inactive Mag-Oxide 400 mg Tab RxNorm: 794620 1 Tablet(s) PO QD No Start Date 0 07/21/2012 Inactive Cipro 500 mg Tab RxNorm: 393852 1 Tablet(s) PO QD No Start Date 04/05 Inactive Ativan 0.5 mg tablet RxNorm: 712748 1 Tablet(s) PO TID as needed No Start Date 05/06/2019 Inactive melatonin 3 mg tablet RxNorm: 056192 2 Tablet(s) PO QHS No Start Da te 08/19/2018 Inactive buspirone 10 mg Tab RxNorm: 086775 1 Tablet(s) PO QD No Start Date Inactive sucralfate 100 mg/mL Oral Susp RxNorm: 314301 2 Teaspoon(s) PO QID No Start Date 07/21/2012 Inactive hydrocodone 5 mg-acetaminophen 325 mg tablet RxNorm: 366894 1 Tablet(s) PO Q4H as needed No Start Date 08/19/2018 Inactive Amaryl 2 mg tablet RxNorm: 716532 1 Tablet(s) PO BID No Start Date Inactive OxyContin 20 mg 12 hr Tab RxNorm: 0612213 1 Tablet(s) PO BID No Sta rt Date 11/27/2009 Inactive propranolol 40 mg tablet RxNorm: 153666 1 Tablet(s) PO QID No Start Date 01/19/2018 Inactive Trazadone 150 mg Tablet RxNorm: 1-2 Tablet(s) PO QHS prn sleep No Start Date 08/09/2010 Inactive propranolol 60 mg Tab RxNorm: 648774 1/2 Tablet(s) PO BID No Start Date 01/21/2011 Inactive insulin NPH and regular human subcutaneous RxNorm: 5183012 subcu taneous No Start Date 11/20/2018 Inactive Ativan 0.5 mg tablet RxNorm: 422886 1 Tablet(s) PO QID No Start Date 06/18/2016 Inactive Vasotec 5 mg Tab RxNorm: 866618 1 Tablet(s) PO BID No Start Date 06/2011 Inactive Toprol XL 50 mg tablet,extended release RxNorm: 943677 1 Tablet (s) PO BID No Start Date 04/05/2013 Inactive Ativan 0.5 mg tablet RxNorm: 511171 1 Tablet(s) PO TID No Start Date 05/25/2016 Inactive Klor-Con M20 20 mEq Tab RxNorm: 1807097 1 Tablet(s) PO QD No Start Date 03/19/2011 Inactive sumatriptan 100 mg tablet RxNorm: 144950 1 Tablet(s) PO at headache onset--repeat in 2hrs if remains No Start Date 07/21/2012 Inactive propranolol 60 mg Tab RxNorm: 879928 1 Tablet(s) PO BID No Start Da te 08/28/2009 Inactive Cholestyramine Light 4 gram Oral Powder RxNorm: 5101960 1 Unit Dose PO QD in water No Start Date 07/21/2012 Inactive nystatin 100,000 unit/g Topical Powder RxNorm: 069166 Applicati on TOP BID No Start Date 07/21/2012 Inactive vitamin V57-aplxa acid sublingual RxNorm: sublingual No Start Date 07/05/2013 Inactive cyclobenzaprine 5 mg tablet RxNorm: 734628 1/2-1 Tablet (s) PO TID as needed for muscle spasm No Start Date 07/18/2017 Inactive tramadol 50 mg tablet RxNorm: 099872 2 Tablet(s) PO TID as need ed for pain No Start Date 09/01/2014 Inactive aspirin 81 mg Tab RxNorm: 863034 1 Tablet(s) PO QOD No Start Date 04/2013 Inactive Vitamin B12 1000mcg Tablet RxNorm: 1 Tablet(s) PO QD No Start Date 07/18/2017 Inactive cholestyramine (with sugar) 4 gram oral powder RxNorm: 75806 3 1 Unit(s) PO QD as needed No Start Date 05/20/2018 Inactive ProAir HFA 90 mcg/Actuation Aerosol Inhaler RxNorm: 053437 2 Puff(s) INH Q4H prn shortness of breath No Start Date 07/21/2012 Inactive pravastatin 10 mg Tab RxNorm: 547205 1 Tablet(s) PO QD No Start Date 07/21/2012 Inactive gabapentin 800 mg Tab RxNorm: 002282 1 Tablet(s) PO BID No Start Da te 06/03/2011 Inactive Endocet 10 mg-325 mg Tab RxNorm: 8774588 1 Tablet(s) PO TID No Star t Date 06/02/2009 Inactive Naproxen 500 mg Tab RxNorm: 380482 1 Tablet(s) PO BID No Start Date 0 04/05/2010 Inactive Valium 10 mg Tab RxNorm: 598277 1 Tablet(s) PO BID No Start Date 07/04 Inactive enalapril maleate 5 mg Tab RxNorm: 535206 1 Tablet(s) PO QD No Star t Date 11/15/2010 Inactive doxepin 10 mg capsule RxNorm: 7154906 2 Capsule(s) PO QHS No Start Date 09/17/2018 Inactive MS Contin 15 mg Tab RxNorm: 037369 1 Tablet(s) PO BID No Start Date 0 09/18/2010 Inactive buspirone 5 mg tablet RxNorm: 091053 1 Tablet(s) PO TID No Start Da te 12/01/2013 Inactive [place] 3 Fish Oil Cap RxNorm: 1 Capsule(s) PO QD No Start Date 07/03 Inactive enalapril maleate 5 mg Tab RxNorm: 204407 1/2 Tablet(s) PO QD No St art Date 03/07/2011 Inactive Lyrica 75 mg capsule RxNorm: 974193 1 Capsule(s) PO QHS No Start Da te 02/08/2014 Inactive Lopressor 100 mg tablet RxNorm: 771597 1 Tablet(s) PO BID No Start Date 06/08/2018 Inactive Lantus Solostar U-100 Insulin 100 unit/mL (3 mL) subcu taneous pen RxNorm: 087936 45 Unit(s) SQ QAM No Start Date 05/20/2018 Inactive aspirin 81 mg tablet RxNorm: 417575 1 Tablet(s) PO QD No Start Date 0 09/14/2015 Inactive insulin NPH isophane U-100 human subcutaneous RxNorm: 452438 beckwith bcutaneous No Start Date 04/20/2019 Inactive sumatriptan 100 mg tablet RxNorm: 696396 1 Tablet(s) PO at headache onset. May repeat 1 in two hours if headache remains. Max of 2 per 24 hours No Start Date 04/01/2018 Inactive gabapentin 300 mg capsule RxNorm: 434079 1 Capsule(s) PO QHS No Sta rt Date 02/04/2018 Inactive Topamax 25 mg Tab RxNorm: 581079 Oral No Start Date 03/07/2011 In active Senokot-S 8.6 mg-50 mg Tab RxNorm: 4361028 1 Tablet(s) PO QD No Sta rt Date 03/07/2011 Inactive metformin ER 500 mg 24 hr tablet,extended release RxNorm: 18 57193 1 Tablet(s) PO QD No Start Date 05/20/2018 Inactive Symbicort 80 mcg-4.5 mcg/actuation HFA Aerosol Inhaler RxNor m: 4462635 2 Puff(s) INH BID No Start Date 04/05/2013 Inactive propranolol 60 mg Tab RxNorm: 960546 1/2 Tablet(s) PO BID No Start Date 07/21/2012 Inactive metformin ER 500 mg 24 hr tablet,extended release RxNorm: 18 40698 2 Tablet(s) PO QD No Start Date 12/16/2017 Inactive Insulin Syringe 1 mL 29 gauge x 1/2" RxNorm: 2 s yringes daily with insulin Dx: E11.65 No Start Date 10/07/2018 Inactive Amitriptyline 75 mg Tab RxNorm: 796774 1 Tablet(s) PO QHS No Start Date 10/23/2009 Inactive donepezil 10 mg Tab RxNorm: 306439 1 Tablet(s) PO QD No Start Date Inactive Lantus Solostar U-100 Insulin 100 unit/mL (3 mL) subcu taneous pen RxNorm: 685181 36 Unit(s) SQ QAM No Start Date 12/24/2017 Inactive Miacalcin 200 unit/Actuation Nasal [place] Aerosol RxNorm: 261 204 1 [place] NASAL QD Alternate nostrils each day No Start Date 04/05/2010 Inactive Amitriptyline 150 mg Tab RxNorm: 461377 1 Tablet(s) PO QHS No Start Date 01/04/2010 Inactive Bystolic 5 mg tablet RxNorm: 470725 1 Tablet(s) PO QD No Start Date 0 08/13/2012 Inactive Aricept 10 mg Tab RxNorm: 880261 1 Tablet(s) PO QD No Start Date 11/03 Inactive Lantus Solostar U-100 Insulin 100 unit/mL (3 mL) subcu taneous pen RxNorm: 012715 50 Unit(s) SQ QAM No Start Date 08/27/2018 Inactive albuterol sulfate 2.5 mg/3 mL (0.083 %) Neb Solution RxNorm: 885544 1 Unit Dose INH QID as needed No Start Date 08/23/2015 Inactive Symbicort 160 mcg-4.5 mcg/actuation HFA Aerosol Inhaler RxNo rm: 1405977 2 Puff(s) INH BID No Start Date 12/03/2011 Inactive [place] 50 mg Tab RxNorm: 225763 1 Tablet(s) PO BID No Start Date 04/2010 Inactive amitriptyline 100 mg Tab RxNorm: 034750 1 1/2 Tablet(s) PO QHS No S tart Date 06/19/2011 Inactive nystatin 100,000 unit/g Topical Cream RxNorm: 940918 Ap plication TOP BID to rash for 2-4 weeks No Start Date 01/14/2011 Inactive Trelegy Ellipta 100 mcg-62.5 mcg-25 mcg powder for inhalatio n RxNorm: 0688685 1 Puff(s) INH QD No Start Date 12/16/2017 Inactive Lyrica 150 mg capsule RxNorm: 021195 1 Capsule(s) PO QHS No Start D ate 12/04/2015 Inactive sennosides 8.6 mg tablet RxNorm: 283675 1 Tablet(s) PO BID No Start Date 09/07/2018 Inactive metformin ER 500 mg tablet,extended release 24 hr RxNorm: 86 0975 1 Tablet(s) PO QD No Start Date 10/22/2017 Inactive Fish Oil 1,000 mg Cap RxNorm: 1 Capsule(s) PO QD No Start Date 06/2011 Inactive Zyrtec 10 mg Tab RxNorm: 3673441 1 Tablet(s) PO QD No Start Date 07/03 Inactive albuterol sulfate HFA 90 mcg/actuation aerosol inhaler RxNor m: 1451838 2 Puff(s) INH Q4H as needed for cough No Start Date 09/30/2013 Inactive trazodone 150 mg tablet RxNorm: 550364 1 Tablet(s) PO QHS No Start Date 07/21/2012 Inactive Spiriva with HandiHaler 18 mcg & inhalation capsules RxNorm: 398981 1 Capsule(s) INH QD No Start Date 04/05/2013 Inactive Coreg 3.125 mg Tab RxNorm: 917550 1 Tablet(s) PO BID No Start Date Inactive Phenergan 25 mg Tab RxNorm: 877752 Tablet(s) PO PRN MIGRAINE No Sta rt Date 11/21/2009 Inactive Vitamin D 50,000 unit Cap RxNorm: 3346251 1 Capsule(s) PO QW No Sta rt Date 03/07/2011 Inactive Januvia 100 mg tablet RxNorm: 881966 1 Tablet(s) PO QD No Start Date 10/25/2015 Inactive Eliquis 5 mg tablet RxNorm: 0782576 1 Tablet(s) PO BID No Start Date 08/19/2018 Inactive Advair Diskus 500 mcg-50 mcg/Dose for Inhalation RxNorm: 866263 1 INH BID No Start Date 07/21/2012 Inactive Vitamin D3 5,000 unit tablet RxNorm: 459184 1 Tablet(s) PO QD No St art Date 07/18/2017 Inactive Amaryl 2 mg tablet RxNorm: 500853 1 Tablet(s) PO QD No Start Date 06/2015 Inactive Actos 30 mg tablet RxNorm: 432386 1 Tablet(s) PO QD No Start Date Inactive promethazine 25 mg tablet RxNorm: 126793 1 Tablet(s) PO Q4H prn N/V No Start Date 07/21/2012 Inactive ProAir HFA 90 mcg/actuation Aerosol Inhaler RxNorm: 882560 2 Puff(s) INH Q4H prn dyspnea No Start Date 07/21/2012 Inactive Dexilant 60 mg Capsule RxNorm: 822985 1 Capsule(s) PO QD No Start D ate 01/27/2012 Inactive Lantus Solostar U-100 Insulin 100 unit/mL (3 mL) subcu taneous pen RxNorm: 599602 38 Unit(s) SQ QAM No Start Date 05/20/2018 Inactive Valium 10 mg Tab RxNorm: 502422 1 Tablet(s) PO QHS AND PRN No Start Date 10/24/2009 Inactive ZOFRAN ODT 8 mg disintegrating tablet RxNorm: 363026 1 Tablet(s ) PO Q6H No Start [...] Date S ervice Location MICROALBUMIN URINE RANDOM 86032 MICRL MG/L 14.9 MG/L Unknown MICROALBUMIN URINE RANDOM 49564 XM.ALB/CRE 6.1 MG/GCR Unknown MICROALBUMIN URINE RANDOM 87567 CREAT MG/D 243 MG/DL Unknown MICROALBUMIN URINE RANDOM 09049 CRE/100 2.43 G/L 03/05 Unknown PROTEIN/CREAT URINE WITH RATIO 96505|79783 PROT R U 14 MG/D L 04/01/2014 Unknown PROTEIN/CREAT URINE WITH RATIO 91479|62871 CREAT R U 254 MG/ DL 04/01/2014 Unknown PROTEIN/CREAT URINE WITH RATIO 77036|56450 XRATIO P/C 55 MG/ G 04/01/2014 Unknown URINALYSIS 56929 PROTEIN UR NEG 04/28/2010 Unknown URINALYSIS 12105 HEMGLBN UR NEG 04/28/2010 Unknown URINALYSIS 78537 GLUCOSE UR NEG 04/28/2010 Unknown URINALYSIS 92923 KETONES UR NEG 04/28/2010 Unknown URINALYSIS 20661 PH U 5.5 04/28/2010 Unknown URINALYSIS 78897 SP GR U 1.025 04/28/2010 Unknown URINALYSIS 62222 BILRUBN UR NEG 04/28/2010 Unknown URINALYSIS 88429 LEUKO UR 2+ 04/28/2010 Unknown URINALYSIS 56652 NITRITE UR NEG 04/28/2010 Unknown MICR CUL? [id number] WBC/HPF 6-10 04/28/2010 Unknown MICR CUL? [id number] RBC/HPF 0-5 04/28/2010 Unknown MICR CUL? [id number] HYAL CAST 16-25 04/28/2010 Unknown MICR CUL? 1968486 SP TO YOLIE? NO 04/28/2010 Unknown MICR CUL? [id number] APPEAR UR NORMAL 04/28/2010 Unknown MICR CUL? [id number] SQ EPI/LPF FEW 04/28/2010 Unknown Procedures Procedure Codes Date URINALYSIS NONAUTO W/O SCOPE CPT-4: 70065 04/16/2019 URINE CULTURE/ COLONY COUNT CPT-4: 77931 04/16/2019 CEFTRIAXONE SODIUM INJECTION CPT-4: J0696 04/16/2019 THER/PROPH/DIAG INJ SC/IM CPT-4: 95573 04/16/2019 DRAIN/INJECT JOINT/BURSA CPT-4: 33556 01/22/2019 TRIAMCINOLONE ACET INJ NOS CPT-4: J3301 01/22/2019 DEXAMETHASONE SODIUM PHOS CPT-4: J1100 01/22/2019 URINE CULTURE/ COLONY COUNT CPT-4: 74090 01/07/2019 URINALYSIS NONAUTO W/O SCOPE CPT-4: 07364 01/07/2019 CEFTRIAXONE SODIUM INJECTION CPT-4: J0696 01/07/2019 THER/PROPH/DIAG INJ SC/IM CPT-4: 12613 01/07/2019 FLU VACC PRSV FREE INC ANTIG 65 AND OLDER CPT-4: 90042 12/24/2018 FLU VACC PRSV FREE INC ANTIG 65 AND OLDER CPT-4: 55955 12/24/2018 ADMIN INFLUENZA VIRUS VAC CPT-4: G0008 12/24/2018 THER/PROPH/DIAG INJ SC/IM CPT-4: 87130 11/04/2018 KETOROLAC TROMETHAMINE INJ CPT-4: J1885 11/04/2018 PROMETHAZINE HCL INJECTION CPT-4: J2550 11/04/2018 PPPS, subseq visit CPT-4: G0439 09/18/2018 THER/PROPH/DIAG INJ SC/IM CPT-4: 68016 04/01/2018 KETOROLAC TROMETHAMINE INJ CPT-4: J1885 04/01/2018 PROMETHAZINE HCL INJECTION CPT-4: J2550 04/01/2018 URINE CULTURE/ COLONY COUNT CPT-4: 87746 03/17/2018 URINALYSIS NONAUTO W/O SCOPE CPT-4: 74592 03/17/2018 FLU VACC PRSV FREE INC ANTIG 65 AND OLDER CPT-4: 55973 12/17/2017 PNEUMOCOCCAL VACC 23 RANDALL IM CPT-4: 55385 12/17/2017 ADMIN INFLUENZA VIRUS VAC CPT-4: G0008 12/17/2017 ADMIN PNEUMOCOCCAL VACCINE CPT-4: G0009 12/17/2017 PPPS, subseq visit CPT-4: G0439 09/17/2017 THER/PROPH/DIAG INJ SC/IM CPT-4: 88296 08/26/2017 KETOROLAC TROMETHAMINE INJ CPT-4: J1885 08/26/2017 PROMETHAZINE HCL INJECTION CPT-4: J2550 08/26/2017 URINALYSIS NONAUTO W/O SCOPE CPT-4: 56050 07/19/2017 URINE CULTURE/ COLONY COUNT CPT-4: 80336 07/19/2017 CEFTRIAXONE SODIUM INJECTION CPT-4: J0696 07/19/2017 THER/PROPH/DIAG INJ SC/IM CPT-4: 82056 07/19/2017 THER/PROPH/DIAG INJ SC/IM CPT-4: 21575 07/19/2017 TRIAMCINOLONE ACET INJ NOS CPT-4: J3301 07/19/2017 PRESCRIP TRANSMIT VIA ERX SY CPT-4: G8553 05/07/2017 PRESCRIP TRANSMIT VIA ERX SY CPT-4: G8553 02/22/2017 PRESCRIP TRANSMIT VIA ERX SY CPT-4: G8553 01/23/2017 FLU VACC PRSV FREE INC ANTIG 65 AND OLDER CPT-4: 06662 12/20/2016 PNEUMOCOCCAL VACC 13 RANDALL IM CPT-4: 58855 12/20/2016 ADMIN INFLUENZA VIRUS VAC CPT-4: G0008 12/20/2016 ADMIN PNEUMOCOCCAL VACCINE CPT-4: G0009 12/20/2016 URINALYSIS NONAUTO W/O SCOPE CPT-4: 31911 10/08/2016 URINE CULTURE/ COLONY COUNT CPT-4: 13403 10/08/2016 PRESCRIP TRANSMIT VIA ERX SY CPT-4: G8553 10/08/2016 PRESCRIP TRANSMIT VIA ERX SY CPT-4: G8553 09/19/2016 PRESCRIP TRANSMIT VIA ERX SY CPT-4: G8553 08/20/2016 PRESCRIP TRANSMIT VIA ERX SY CPT-4: G8553 02/29/2016 KETOROLAC TROMETHAMINE INJ CPT-4: J1885 02/02/2016 THER/PROPH/DIAG INJ SC/IM CPT-4: 22714 02/02/2016 PROMETHAZINE HCL INJECTION CPT-4: J2550 02/02/2016 PRESCRIP TRANSMIT VIA ERX SY CPT-4: G8553 02/02/2016 FLU VACC PRSV FREE INC ANTIG 65 AND OLDER CPT-4: 03712 01/05/2016 PPPS, subseq visit CPT-4: G0439 01/05/2016 ADMIN INFLUENZA VIRUS VAC CPT-4: G0008 01/05/2016 URINE CULTURE/ COLONY COUNT CPT-4: 82717 12/05/2015 URINALYSIS NONAUTO W/O SCOPE CPT-4: 42551 12/05/2015 PRESCRIP TRANSMIT VIA ERX SY CPT-4: G8553 12/05/2015 PRESCRIP TRANSMIT VIA ERX SY CPT-4: G8553 10/26/2015 URINALYSIS NONAUTO W/O SCOPE CPT-4: 40109 10/05/2015 URINE CULTURE/ COLONY COUNT CPT-4: 08386 10/05/2015 PRESCRIP TRANSMIT VIA ERX SY CPT-4: G8553 10/05/2015 MD SERVICE REQUIRED FOR PMD CPT-4: G0372 09/15/2015 PRESCRIP TRANSMIT VIA ERX SY CPT-4: G8553 09/15/2015 SPECIAL REPORTS OR FORMS CPT-4: 01901 08/25/2015 PRESCRIP TRANSMIT VIA ERX SY CPT-4: G8553 07/05/2015 URINALYSIS NONAUTO W/O SCOPE CPT-4: 56015 03/30/2015 ASSAY, GLUCOSE, BLOOD QUANT CPT-4: 41009 03/30/2015 URINE CULTURE/ COLONY COUNT CPT-4: 75026 03/30/2015 PRESCRIP TRANSMIT VIA ERX SY CPT-4: G8553 03/30/2015 PRESCRIP TRANSMIT VIA ERX SY CPT-4: G8553 02/03/2015 FLU VACC PRSV FREE INC ANTIG 65 AND OLDER CPT-4: 66478 12/29/2014 ADMIN INFLUENZA VIRUS VAC CPT-4: G0008 12/29/2014 PRESCRIP TRANSMIT VIA ERX SY CPT-4: G8553 12/29/2014 PRESCRIP TRANSMIT VIA ERX SY CPT-4: G8553 09/02/2014 PROTEIN/CREAT URINE WITH RATIO CPT-4: 17576|17216 5 MICROALBUMIN QUANTITATIVE CPT-4: 29862 04/01/2014 PRESCRIP TRANSMIT VIA ERX SY CPT-4: G8553 03/16/2014 PRESCRIP TRANSMIT VIA ERX SY CPT-4: G8553 03/09/2014 THER/PROPH/DIAG INJ SC/IM CPT-4: 56519 03/01/2014 TRIAMCINOLONE ACET INJ NOS CPT-4: J3301 03/01/2014 PRESCRIP TRANSMIT VIA ERX SY CPT-4: G8553 02/09/2014 URINE CULTURE/ COLONY COUNT CPT-4: 69961 10/30/2013 URINALYSIS NONAUTO W/O SCOPE CPT-4: 90896 10/21/2013 URINE CULTURE/ COLONY COUNT CPT-4: 50600 10/21/2013 DESTRUCT PREMALG LESION (Cryosurgery) CPT-4: 29370 PRESCRIP TRANSMIT VIA ERX SY CPT-4: G8553 10/05/2013 URINALYSIS NONAUTO W/O SCOPE CPT-4: 16529 08/04/2013 URINE CULTURE/ COLONY COUNT CPT-4: 35061 08/04/2013 PRESCRIP TRANSMIT VIA ERX SY CPT-4: G8553 08/04/2013 THER/PROPH/DIAG INJ SC/IM CPT-4: 17377 07/13/2013 TRIAMCINOLONE ACET INJ NOS CPT-4: J3301 07/13/2013 PRESCRIP TRANSMIT VIA ERX SY CPT-4: G8553 05/27/2013 URINALYSIS NONAUTO W/O SCOPE CPT-4: 93955 05/25/2013 URINE CULTURE/ COLONY COUNT CPT-4: 62278 05/25/2013 THER/PROPH/DIAG INJ SC/IM CPT-4: 28509 05/04/2013 VITAMIN B12 INJECTION CPT-4: J3420 05/04/2013 THER/PROPH/DIAG INJ SC/IM CPT-4: 17063 04/17/2013 VITAMIN B12 INJECTION CPT-4: J3420 04/17/2013 THER/PROPH/DIAG INJ SC/IM CPT-4: 16406 04/17/2013 METHYLPREDNISOLONE 40 MG INJ CPT-4: J1030 04/17/2013 TRIAMCINOLONE ACET INJ NOS CPT-4: J3301 04/17/2013 URINALYSIS NONAUTO W/O SCOPE CPT-4: 31830 04/06/2013 URINE CULTURE/ COLONY COUNT CPT-4: 59887 04/06/2013 PRESCRIP TRANSMIT VIA ERX SY CPT-4: G8553 04/06/2013 KETOROLAC TROMETHAMINE INJ CPT-4: J1885 06/25/2012 PROMETHAZINE HCL INJECTION CPT-4: J2550 06/25/2012 THER/PROPH/DIAG INJ SC/IM CPT-4: 97964 06/25/2012 THER/PROPH/DIAG INJ SC/IM CPT-4: 60437 06/24/2012 METHYLPREDNISOLONE 40 MG INJ CPT-4: J1030 06/24/2012 TRIAMCINOLONE ACET INJ NOS CPT-4: J3301 06/24/2012 URINE CULTURE/ COLONY COUNT CPT-4: 34786 06/24/2012 THER/PROPH/DIAG INJ SC/IM CPT-4: 61459 05/20/2012 KETOROLAC TROMETHAMINE INJ CPT-4: J1885 05/20/2012 THER/PROPH/DIAG INJ SC/IM CPT-4: 54400 05/20/2012 PROMETHAZINE HCL INJECTION CPT-4: J2550 05/20/2012 DRAIN/INJECT JOINT/BURSA CPT-4: 94278 02/13/2012 METHYLPREDNISOLONE 40 MG INJ CPT-4: J1030 02/13/2012 TRIAMCINOLONE ACET INJ NOS CPT-4: J3301 02/13/2012 THER/PROPH/DIAG INJ SC/IM CPT-4: 14651 11/14/2011 METHYLPREDNISOLONE 40 MG INJ CPT-4: J1030 11/14/2011 TRIAMCINOLONE ACET INJ NOS CPT-4: J3301 11/14/2011 THER/PROPH/DIAG INJ SC/IM CPT-4: 72883 09/12/2011 KETOROLAC TROMETHAMINE INJ CPT-4: J1885 09/12/2011 THER/PROPH/DIAG INJ SC/IM CPT-4: 68164 08/09/2011 METHYLPREDNISOLONE 40 MG INJ CPT-4: J1030 08/09/2011 TRIAMCINOLONE ACET INJ NOS CPT-4: J3301 08/09/2011 URINE CULTURE/ COLONY COUNT CPT-4: 37420 07/03/2011 URINE CULTURE/ COLONY COUNT CPT-4: 81328 06/04/2011 THER/PROPH/DIAG INJ SC/IM CPT-4: 69908 05/03/2011 METHYLPREDNISOLONE 40 MG INJ CPT-4: J1030 05/03/2011 TRIAMCINOLONE ACET INJ NOS CPT-4: J3301 05/03/2011 URINALYSIS NONAUTO W/O SCOPE CPT-4: 91572 01/24/2011 URINE CULTURE/ COLONY COUNT CPT-4: 56440 01/24/2011 FLUZONE, 5ML (Medicare) CPT-4: Q2038 01/02/2011 ADMIN INFLUENZA VIRUS VAC CPT-4: G0008 01/02/2011 ASSAY, GLUCOSE, BLOOD QUANT CPT-4: 09886 12/07/2010 URINE CULTURE/ COLONY COUNT CPT-4: 31506 11/02/2010 THER/PROPH/DIAG INJ SC/IM CPT-4: 45179 10/18/2010 METHYLPREDNISOLONE 40 MG INJ CPT-4: J1030 10/18/2010 TRIAMCINOLONE ACET INJ NOS CPT-4: J3301 10/18/2010 TRIAMCINOLONE ACET INJ NOS CPT-4: J3301 05/11/2010 METHYLPREDNISOLONE 40 MG INJ CPT-4: J1030 05/11/2010 THER/PROPH/DIAG INJ SC/IM CPT-4: 81296 05/11/2010 TRIAMCINOLONE ACET INJ NOS CPT-4: J3301 02/09/2010 METHYLPREDNISOLONE 40 MG INJ CPT-4: J1030 02/09/2010 THER/PROPH/DIAG INJ SC/IM CPT-4: 51997 02/09/2010 SERVICE REQUIRED FOR PMD CPT-4: G0372 02/09/2010 FLU VACCINE 3 YRS & > IM UP 64 CPT-4: 08819 0 PNEUMOCOCCAL VACC 23 RANDALL IM CPT-4: 95936 12/07/2009 ADMIN INFLUENZA VIRUS VAC CPT-4: G0008 12/07/2009 ADMIN PNEUMOCOCCAL VACCINE CPT-4: G0009 12/07/2009 TRIAMCINOLONE ACET INJ NOS CPT-4: J3301 05/26/2009 THER/PROPH/DIAG INJ SC/IM CPT-4: 97546 05/26/2009 METHYLPREDNISOLONE 80 MG INJ CPT-4: J1040 05/26/2009 Vital Signs Date Vital 05/06/2019 Blood Pressure 1: 128/69 Code: 8480-6 [...] 1: 114/72 Code: 8480-6 BMI: 37.8 Code: 47115-7 Heart Rate 1: 72 bpm Height: 5'3" Respiratory Rate: 20 bpm Temperature: 36 .9 (C) / 98.4 (F) Weight: 215 lbs 09/08/2018 Blood Pressure 1: 110/70 Code: 8480-6 Heart Rate 1: 67 bpm Respiratory Rate: 20 bpm SpO2: 96% Temperature: 36.6 (C) / 97.9 (F) We ight: 215 lbs 8 08/20/2018 Blood Pressure 1: 124/80 Code: 8480-6 [...] 1: 106/68 Code: 8480-6 BMI: 35.7 Code: 64866-9 Heart Rate 1: 72 bpm Height: 5'4" Respiratory Rate: 20 bpm SpO2: 98% Tempera ture: 36.7 (C) / 98.0 (F) Weight: 208 lbs 04/16/2018 Blood Pressure 1: 132/82 Code: 8480-6 BMI: 37.9 Code: 14191-2 Heart Rate 1: 72 bpm Height: 5'4" Respiratory Rate: 20 bpm SpO2: 96% Tempera ture: 37.1 (C) / 98.8 (F) Weight: 221 lbs 04/01/2018 Blood Pressure 1: 150/90 Code: 8480-6 Heart Rate 1: 72 bpm Respiratory Rate: 22 bpm SpO2: 95% Temperature: 36.4 (C) / 97.6 (F) We ight: 216 lbs 03/06/2018 Blood Pressure 1: 126/78 Code: 8480-6 BMI: 37.4 Code: 47888-7 Heart Rate 1: 68 bpm Height: 5'4" [...] ight: 222 lbs 12/25/2017 BMI: 37.8 Code: 73885-4 Heart Rate 1: 76 bpm Height: 5 '4" Respiratory Rate: 20 bpm SpO2: 96% Temperature: 37.3 (C) / 99.2 (F) Weight: 220 lbs 12/17/2017 Blood Pressure 1: 132/78 Code: 8480-6 BMI: 37.2 Code: 84592-8 Heart Rate 1: 88 bpm Height: 5'4" Respiratory Rate: 20 bpm SpO2: 96% Tempera ture: 37.3 (C) / 99.2 (F) Weight: 217 lbs 10/30/2017 Blood Pressure 1: 114/68 Code: 8480-6 BMI: 36.4 Code: 15578-5 Heart Rate 1: 72 bpm Height: 5'4" Respiratory Rate: 22 bpm SpO2: 96% Tempera ture: 36.8 (C) / 98.2 (F) Weight: 212 lbs 10/23/2017 Blood Pressure 1: 124/78 Code: 8480-6 Heart Rate 1: 72 bpm Respiratory Rate: 24 bpm SpO2: 94% Temperature: 36.6 (C) / 97.9 (F) We ight: 212 lbs 09/17/2017 Blood Pressure 1: 128/82 Code: 8480-6 BMI: 37.4 Code: 44627-5 Heart Rate 1: 72 bpm Height: 5'4" Respiratory Rate: 20 bpm SpO2: 96% Tempera ture: 37.0 (C) / 98.6 (F) Weight: 218 lbs 07/19/2017 Blood Pressure 1: 136/84 Code: 8480-6 BMI: 36.6 Code: 82471-3 Heart Rate 1: 88 bpm Height: 5'4" Respiratory Rate: 20 bpm SpO2: 97% Tempera ture: 36.7 (C) / 98.0 (F) Weight: 213 lbs 05/29/2017 Blood Pressure 1: 136/82 Code: 8480-6 BMI: 36.7 Code: 11096-9 Heart Rate 1: 72 bpm Height: 5'4" Respiratory Rate: 20 bpm SpO2: 97% Tempera ture: 36.9 (C) / 98.4 (F) Weight: 214 lbs 05/07/2017 Blood Pressure 1: 122/80 Code: 8480-6 BMI: 37.1 Code: 60989-0 Heart Rate 1: 80 bpm Height: 5'4" Respiratory Rate: 24 bpm SpO2: 96% Tempera ture: 36.1 (C) / 97.0 (F) Weight: 216 lbs 03/18/2017 BMI: 36.7 Code: 68604-5 Heart Rate 1: 80 bpm Height: 5 '4" Respiratory Rate: 22 bpm SpO2: 95% Temperature: 36.9 (C) / 98.4 (F) Weight: 214 lbs 02/27/2017 Blood Pressure 1: 146/94 Code: 8480-6 BMI: 36.6 Code: 43149-4 Heart Rate 1: 76 bpm Height: 5'4" Respiratory Rate: 22 bpm SpO2: 97% Tempera ture: 36.6 (C) / 97.9 (F) Weight: 213 lbs 02/22/2017 Blood Pressure 1: 126/90 Code: 8480-6 BMI: 36.4 Code: 09656-2 Heart Rate 1: 84 bpm Height: 5'4" Respiratory Rate: 22 bpm SpO2: 95% Tempera ture: 36.9 (C) / 98.4 (F) Weight: 212 lbs 01/23/2017 Blood Pressure 1: 146/82 Code: 8480-6 BMI: 37.6 Code: 98698-6 Heart Rate 1: 96 bpm Height: 5'4" Respiratory Rate: 20 bpm SpO2: 96% Tempera ture: 36.9 (C) / 98.4 (F) Weight: 219 lbs 12/20/2016 Blood Pressure 1: 126/70 Code: 8480-6 BMI: 37.2 Code: 21982-7 Heart Rate 1: 76 bpm Height: 5'4" Respiratory Rate: 22 bpm SpO2: 95% Tempera ture: 36.6 (C) / 97.8 (F) Weight: 217 lbs 10/08/2016 Blood Pressure 1: 128/82 Code: 8480-6 BMI: 36.9 Code: 40348-5 Heart Rate 1: 76 bpm Height: 5'4" Respiratory Rate: 20 bpm SpO2: 95% Tempera ture: 37.0 (C) / 98.6 (F) Weight: 215 lbs 09/19/2016 Blood Pressure 1: 144/78 Code: 8480-6 BMI: 37.8 Code: 35807-9 Heart Rate 1: 76 bpm Height: 5'4" Respiratory Rate: 22 bpm SpO2: 95% Tempera ture: 37.0 (C) / 98.6 (F) Weight: 220 lbs 08/20/2016 Blood Pressure 1: 140/86 Code: 8480-6 BMI: 37.4 Code: 29021-0 Heart Rate 1: 80 bpm Height: 5'4" Respiratory Rate: 20 bpm SpO2: 95% Tempera ture: 36.9 (C) / 98.4 (F) Weight: 218 lbs 06/19/2016 Blood Pressure 1: 124/78 Code: 8480-6 BMI: 37.8 Code: 91383-4 Heart Rate 1: 74 bpm Height: 5'4" Respiratory Rate: 24 bpm SpO2: 96% Tempera ture: 36.9 (C) / 98.4 (F) Weight: 220 lbs 06/04/2016 Blood Pressure 1: 124 Code: 8480-6 BMI: 38.8 Code: 33015-4 Heart Rate 1: 72 bpm Height: 5'4" Respiratory Rate: 24 bpm SpO2: 95% Tempera ture: 36.8 (C) / 98.2 (F) Weight: 226 lbs 05/02/2016 Blood Pressure 1: 136/90 Code: 8480-6 BMI: 37.6 Code: 30543-9 Heart Rate 1: 72 bpm Height: 5'4" Respiratory Rate: 24 bpm SpO2: 96% Tempera ture: 36.9 (C) / 98.4 (F) Weight: 219 lbs 04/03/2016 Blood Pressure 1: 126/78 Code: 8480-6 BMI: 38.1 Code: 64257-8 Heart Rate 1: 72 bpm Height: 5'4" Respiratory Rate: 22 bpm SpO2: 94% Tempera ture: 36.9 (C) / 98.4 (F) Weight: 222 lbs 02/29/2016 Blood Pressure 1: 132/78 Code: 8480-6 Heart Rate 1: 78 bpm Height: Respiratory Rate: 24 bpm SpO2: 95% Temperature: 36.4 (C) / 97.6 (F) We ight: 02/02/2016 Blood Pressure 1: 124/78 Code: 8480-6 BMI: 37.6 Code: 81352-6 Heart Rate 1: 76 bpm Height: 5'4" Respiratory Rate: 20 bpm SpO2: 95% Tempera ture: 36.8 (C) / 98.2 (F) Weight: 219 lbs 01/05/2016 Blood Pressure 1: 126/70 Code: 8480-6 BMI: 37.1 Code: 34227-3 Heart Rate 1: 76 bpm Height: 5'4" Respiratory Rate: 20 bpm Temperature: 36 .6 (C) / 97.8 (F) Weight: 216 lbs 12/05/2015 Blood Pressure 1: 126/72 Code: 8480-6 BMI: 36.9 Code: 22284-4 Heart Rate 1: 92 bpm Height: 5'4" Respiratory Rate: 20 bpm Temperature: 36 .7 (C) / 98.1 (F) Weight: 215 lbs 10/26/2015 Blood Pressure 1: 142/80 Code: 8480-6 BMI: 36.4 Code: 19599-9 Heart Rate 1: 82 bpm Height: 5'4" Respiratory Rate: 24 bpm SpO2: 92% Tempera ture: 35.9 (C) / 96.7 (F) Weight: 212 lbs 10/05/2015 Blood Pressure 1: 136/82 Code: 8480-6 Heart Rate 1: 80 bpm Respiratory Rate: 18 bpm SpO2: 98% Temperature: 35.7 (C) / 96.3 (F) We ight: 214 lbs 09/15/2015 Blood Pressure 1: 116/80 Code: 8480-6 BMI: 34.6 Code: 33222-7 Heart Rate 1: 76 bpm Height: 5'6" Respiratory Rate: 20 bpm Temperature: 36 .6 (C) / 97.9 (F) Weight: 211 lbs 08/24/2015 Blood Pressure 1: 124/80 Code: 8480-6 BMI: 34.1 Code: 95851-6 Heart Rate 1: 68 bpm Height: 5'6" Respiratory Rate: 20 bpm Temperature: 36 .8 (C) / 98.3 (F) Weight: 208 lbs 07/05/2015 Blood Pressure 1: 114/78 Code: 8480-6 BMI: 33.9 Code: 69535-6 Heart Rate 1: 80 bpm Height: 5'6" Respiratory Rate: 20 bpm Temperature: 36 .6 (C) / 97.9 (F) Weight: 207 lbs 06/06/2015 Blood Pressure 1: 122/78 Code: 8480-6 BMI: 34.1 Code: 79666-0 Heart Rate 1: 76 bpm Height: 5'6" Respiratory Rate: 24 bpm SpO2: 96% Tempera ture: 36.4 (C) / 97.6 (F) Weight: 208 lbs 05/23/2015 Blood Pressure 1: 124/78 Code: 8480-6 Heart Rate 1: 76 bpm Respiratory Rate: 24 bpm SpO2: 93% Temperature: 36.8 (C) / 98.2 (F) We ight: 212 lbs 05/05/2015 Blood Pressure 1: 136/80 Code: 8480-6 BMI: 35.4 Code: 85873-0 Heart Rate 1: 76 bpm Height: 5'6" Respiratory Rate: 28 bpm Temperature: 37 .0 (C) / 98.6 (F) Weight: 216 lbs 03/30/2015 Blood Pressure 1: 132/86 Code: 8480-6 BMI: 35.2 Code: 24026-5 Heart Rate 1: 84 bpm Height: 5'6" Respiratory Rate: 24 bpm Temperature: 36 .7 (C) / 98.0 (F) Weight: 215 lbs 02/03/2015 Blood Pressure 1: 122/74 Code: 8480-6 BMI: 35.7 Code: 02547-3 Heart Rate 1: 84 bpm Height: 5'6" Respiratory Rate: 20 bpm Temperature: 36 .9 (C) / 98.5 (F) Weight: 218 lbs 12/29/2014 Blood Pressure 1: 132/80 Code: 8480-6 BMI: 35.1 Code: 70221-3 Heart Rate 1: 80 bpm Height: 5'6" Respiratory Rate: 20 bpm Temperature: 36 .6 (C) / 97.8 (F) Weight: 214 lbs 09/02/2014 Blood Pressure 1: 128/92 Code: 8480-6 BMI: 34.7 Code: 76808-2 Heart Rate 1: 84 bpm Height: 5'6" Respiratory Rate: 26 bpm Temperature: 36 .8 (C) / 98.2 (F) Weight: 212 lbs 08/25/2014 Blood Pressure 1: 124/80 Code: 8480-6 BMI: 34.7 Code: 97786-6 Heart Rate 1: 78 bpm Height: 5'6" Respiratory Rate: 22 bpm SpO2: 97% Tempera ture: 36.6 (C) / 97.8 (F) Weight: 212 lbs 04/01/2014 Blood Pressure 1: 142/84 Code: 8480-6 BMI: 34.4 Code: 76728-5 Heart Rate 1: 74 bpm Height: 5'5" Respiratory Rate: 20 bpm Temperature: 36 .4 (C) / 97.6 (F) Weight: 207 lbs 03/16/2014 Blood Pressure 1: 142/90 Code: 8480-6 BMI: 34.6 Code: 13900-1 Heart Rate 1: 76 bpm Height: 5'5" Respiratory Rate: 24 bpm Temperature: 36 .5 (C) / 97.7 (F) Weight: 208 lbs 03/09/2014 Blood Pressure 1: 116/70 Code: 8480-6 BMI: 35.3 Code: 77265-2 Heart Rate 1: 72 bpm Height: 5'5" [...] 1: 128/86 Code: 8480-6 BMI: 34.3 Code: 71652-2 Heart Rate 1: 84 bpm Height: 5'5" Respiratory Rate: 20 bpm Temperature: 36 .7 (C) / 98.0 (F) Weight: 206 lbs 12/23/2013 Blood Pressure 1: 122/70 Code: 8480-6 BMI: 34.3 Code: 99263-1 Heart Rate 1: 68 bpm Height: 5'5" Respiratory Rate: 20 bpm Temperature: 36 .8 (C) / 98.2 (F) Weight: 206 lbs 10/05/2013 Blood Pressure 1: 118/76 Code: 8480-6 BMI: 34.1 Code: 53314-1 Heart Rate 1: 68 bpm Height: 5'5" Respiratory Rate: 20 bpm SpO2: 98% Tempera ture: 36.6 (C) / 97.9 (F) Weight: 205 lbs 08/04/2013 Blood Pressure 1: 126/82 Code: 8480-6 BMI: 33.3 Code: 16149-3 Heart Rate 1: 76 bpm Height: 5'5" Respiratory Rate: 20 bpm Temperature: 36 .8 (C) / 98.2 (F) Weight: 200 lbs 07/03/2013 Blood Pressure 1: 124/82 Code: 8480-6 BMI: 33.3 Code: 26919-3 Heart Rate 1: 72 bpm Height: 5'5" Respiratory Rate: 22 bpm Temperature: 36 .1 (C) / 97.0 (F) Weight: 200 lbs 05/27/2013 Blood Pressure 1: 126/82 Code: 8480-6 Heart Rate 1: 74 bpm Respiratory Rate: 20 bpm Temperature: 36.0 (C) / 96.8 (F) Weight: 199 lbs 04/06/2013 Blood Pressure 1: 118/80 Code: 8480-6 BMI: 35.2 Code: 51848-9 Heart Rate 1: 80 bpm Height: 5'4" Respiratory Rate: 20 bpm Temperature: 37 .4 (C) / 99.3 (F) Weight: 205 lbs 11/10/2012 Blood Pressure 1: 128/82 Code: 8480-6 Heart Rate 1: 84 bpm Respiratory Rate: 20 bpm Temperature: 36.7 (C) / 98.0 (F) Weight: 199 lbs 09/02/2012 Blood Pressure 1: 116/82 Code: 8480-6 BMI: 34.2 Code: 81979-5 Heart Rate 1: 88 bpm Height: 5'4" Respiratory Rate: 22 bpm Temperature: 36 .6 (C) / 97.8 (F) Weight: 199 lbs 08/04/2012 Blood Pressure 1: 128/74 Code: 8480-6 BMI: 34.0 Code: 03335-0 Heart Rate 1: 92 bpm Height: 5'4" Respiratory Rate: 20 bpm Temperature: 36 .4 (C) / 97.5 (F) Weight: 198 lbs 07/21/2012 Blood Pressure 1: 124/86 Code: 8480-6 Heart Rate 1: 116 bpm Respiratory Rate: 24 bpm Temperature: 36.8 (C) / 98.2 (F) 07/02/2012 Blood Pressure 1: 116/88 Code: 8480-6 BMI: 33.6 Code: 92874-3 Heart Rate 1: 76 bpm Height: 5'4" Respiratory Rate: 20 bpm Temperature: 36 .8 (C) / 98.3 (F) Weight: 196 lbs 06/24/2012 Blood Pressure 1: 124/80 Code: 8480-6 BMI: 34.3 Code: 98742-7 Heart Rate 1: 72 bpm Height: 5'4" SpO2: 96% Temperature: 36.3 (C) / 97.3 (F) Weight: 200 lbs 05/20/2012 Blood Pressure 1: 116/88 Code: 8480-6 BMI: 33.8 Code: 08472-1 Heart Rate 1: 80 bpm Height: 5'4" Respiratory Rate: 22 bpm Temperature: 36 .9 (C) / 98.4 (F) Weight: 197 lbs 05/08/2012 Blood Pressure 1: 128/86 Code: 8480-6 BMI: 33.8 Code: 30151-1 Heart Rate 1: 76 bpm Height: 5'4" Respiratory Rate: 26 bpm SpO2: 95% Tempera ture: 36.1 (C) / 97.0 (F) Weight: 197 lbs 04/22/2012 Blood Pressure 1: 106/64 Code: 8480-6 BMI: 33.8 Code: 79828-3 Heart Rate 1: 70 bpm Height: 5'4" Temperature: 36.1 (C) / 97.0 (F) Weight: 197 lbs 02/13/2012 Blood Pressure 1: 126/82 Code: 8480-6 BMI: 34.7 Code: 85343-9 Heart Rate 1: 64 bpm Height: 5'4" Respiratory Rate: 20 bpm Temperature: 36 .6 (C) / 97.8 (F) Weight: 202 lbs 01/28/2012 Blood Pressure 1: 116/80 Code: 8480-6 BMI: 34.7 Code: 65011-6 Heart Rate 1: 76 bpm Height: 5'4" Respiratory Rate: 20 bpm Temperature: 36 .8 (C) / 98.3 (F) Weight: 202 lbs 12/26/2011 Blood Pressure 1: 132/82 Code: 8480-6 BMI: 36.0 Code: 25830-1 Heart Rate 1: 68 bpm Height: 5'4" Respiratory Rate: 22 bpm Temperature: 36 .7 (C) / 98.0 (F) Weight: 210 lbs 11/14/2011 Blood Pressure 1: 124/80 Code: 8480-6 BMI: 36.4 Code: 43910-0 Heart Rate 1: 76 bpm Height: 5'4" Respiratory Rate: 20 bpm Temperature: 36 .8 (C) / 98.2 (F) Weight: 212 lbs 09/12/2011 Blood Pressure 1: 108/74 Code: 8480-6 BMI: 37.1 Code: 02193-3 Heart Rate 1: 72 bpm Height: 5'4" Respiratory Rate: 20 bpm Temperature: 37 .0 (C) / 98.6 (F) Weight: 216 lbs 08/15/2011 Blood Pressure 1: 122/80 Code: 8480-6 BMI: 36.9 Code: 73748-8 Heart Rate 1: 76 bpm Height: 5'4" Respiratory Rate: 20 bpm Temperature: 36 .2 (C) / 97.1 (F) Weight: 215 lbs 08/09/2011 Blood Pressure 1: 112/78 Code: 8480-6 BMI: 36.9 Code: 60981-5 Heart Rate 1: 68 bpm Height: 5'4" Respiratory Rate: 20 bpm Temperature: 36 .7 (C) / 98.0 (F) Weight: 215 lbs 07/03/2011 Blood Pressure 1: 140/94 Code: 8480-6 BMI: 36.2 Code: 48141-3 Heart Rate 1: 68 bpm Height: 5'4" Temperature: 36.0 (C) / 96.8 (F) Weight: 211 lbs 06/04/2011 Blood Pressure 1: 124/70 Code: 8480-6 BMI: 36.7 Code: 49700-7 Heart Rate 1: 68 bpm Height: 5'4" Respiratory Rate: 20 bpm Temperature: 36 .6 (C) / 97.9 (F) Weight: 214 lbs 05/03/2011 Blood Pressure 1: 130/76 Code: 8480-6 BMI: 36.4 Code: 12788-9 Heart Rate 1: 74 bpm Height: 5'5" Temperature: 36.2 (C) / 97.2 (F) Weight: 219 lbs 04/05/2011 Blood Pressure 1: 124/86 Code: 8480-6 BMI: 35.9 Code: 04316-5 Heart Rate 1: 76 bpm Height: 5'6" Respiratory Rate: 22 bpm Temperature: 36 .3 (C) / 97.3 (F) Weight: 219 lbs 03/08/2011 Blood Pressure 1: 112/78 Code: 8480-6 BMI: 35.1 Code: 69037-4 Heart Rate 1: 80 bpm Height: 5'6" Respiratory Rate: 26 bpm Temperature: 36 .9 (C) / 98.4 (F) Weight: 214 lbs 01/24/2011 Blood Pressure 1: 110/82 Code: 8480-6 BMI: 35.6 Code: 50175-0 Heart Rate 1: 80 bpm Height: 5'6" Temperature: 36.1 (C) / 97.0 (F) Weight: 217 lbs 01/02/2011 Blood Pressure 1: 106/72 Code: 8480-6 BMI: 35.6 Code: 54451-8 Heart Rate 1: 76 bpm Height: 5'6" [...] 1: 120/74 Code: 8480-6 BMI: 35.9 Code: 19731-7 Heart Rate 1: 72 bpm Height: 5'5" Temperature: 36.3 (C) / 97.4 (F) Weight: 216 lbs 09/19/2010 Blood Pressure 1: 124/80 Code: 8480-6 BMI: 35.4 Code: 09144-0 Heart Rate 1: 76 bpm Height: 5'5" [...] 1: 122/78 Code: 8480-6 BMI: 37.4 Code: 49348-2 Heart Rate 1: 84 bpm Height: 5'5" Weight: 225 lbs Functional Status No Functional Status data Reason For Visit Reason For Visit Effective Dates Notes follow up 05/06/2019 follow up 04/29/2019 ER [...] 12/17/2017 follow up 10/30/2017 follow up 10/23/2017 [facility] fwup from [facility] Annual Checkup 09/17/2017 [...] 1 month f/u follow up 12/07/2009 from [facility], done with PT--finished about 2wks ago follow up 11/08/2009 2wk fwup follow up 10/24/2009 hosp fwup ~generic 07/25/2009 bilateral earlobe re dness/swelling, pain radiating into neck, refill Demerol ~generic 05/26/2009 FALLING A LOT, SAVEL LA NOT HELPING FIBROMYALGIA PAIN, LT HAND LACERATION-FELL INTO NAIL 05/25/09 Encounters Encounter Performer Location Codes Date () OFFICE/OUTPATIENT VISIT EST Diagnosis: Stridor[ICD10: R06.1] Diagnosis: COUGH[ICD10: R05] Belia REID DO [facility] CPT-4: 39619 05/06/2019 ([id number]) OFFICE/OUTPATIENT VISIT EST Diagnosis: Stridor[ICD10: R06.1] Diagnosis: Muscle, jerky movements (uncontrolled)[ICD10: G25.5] Belia REID [employer] [facility] CPT-4: 17637 04/29/2019 ([id number]) OFFICE/OUTPATIENT VISIT EST Diagnosis: Upper respiratory infection[ICD10: J06.9] Diagnosis: Flank pain[ICD10: R10.9] Diagnosis: Weight gain[ICD10: R63.5] Pattie AMBRIZ [employer] [facility] CPT-4: 24778 04/16/2019 ([id number]) OFFICE/OUTPATIENT VISIT EST Diagnosis: Generalized pruritus[ICD10: L29.9] Belia REID [employer] [facility] CPT-4: 71576 04/08/2019 ([id number]) OFFICE/OUTPATIENT VISIT EST Diagnosis: Acute bursitis of left shoulder[ICD10: M75.52] Diagnosis: Cervicalgia[ICD10: M54.2] Diagnosis: Chest wall pain[ICD10: R07.89] Belia SMITH [employer] CPT-4: 04597 01/22/2019 ([id number]) OFFICE/OUTPATIENT VISIT EST Diagnosis: Abdominal pain[ICD10: R10.9] Diagnosis: Pyelonephritis[ICD10: N12] Pattie DOMINGUEZ [employer] CPT-4: 17002 01/07/2019 ([id number]) OFFICE/OUTPATIENT VISIT EST Diagnosis: Low back pain[ICD10: M54.5] Diagnosis: Left lumbar radiculopathy[ICD10: M54.16] Diagnosis: Left flank pain[ICD10: R10.9] Diagnosis: Left lower quadrant pain[ICD10: R10.32] Diagnosis: FLU VACCINE[ICD10: Z23] Belia FREDERICK [employer] CPT-4: 52153 12/24/2018 ([id number]) OFFICE/OUTPATIENT VISIT EST Diagnosis: Migraine, unspecified, not intractable, without status migrainosus[ICD10: G43.909] Diagnosis: Fibromyalgia[ICD10: M79.7] Belia DOMINGUEZ [facility] CPT-4: 88938 11/20/2018 ([id number]) OFFICE/OUTPATIENT VISIT EST Diagnosis: Migraine, unspecified, intractable, without status migrainosus[ICD10: G43.919] Diagnosis: Acute sinusitis, unspecified[ICD10: J01.90] Pattie REID DO [facility] CPT-4: 45035 11/04/2018 ([id number]) OFFICE/OUTPATIENT VISIT EST Diagnosis: Pain in left wrist[ICD10: M25.532] Diagnosis: Other dorsalgia[ICD10: M54.89] Pattie REID DO [facility] CPT-4: 39707 09/08/2018 ([id number]) OFFICE/OUTPATIENT VISIT EST Diagnosis: Acute stress reaction[ICD10: F43.0] Diagnosis: Pruritus, unspecified[ICD10: L29.9] 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, 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] Belia REID [facility] CPT-4: 31904 08/20/2018 ([id number]) OFFICE/OUTPATIENT VISIT EST Diagnosis: Hypotension due to drugs[ICD10: I95.2] Diagnosis: Paroxysmal atrial fibrillation[ICD10: I48.0] Diagnosis: Localized edema[ICD10: R60.0] Belia REID DO [facility] CPT-4: 80744 06/19/2018 ([id number]) OFFICE/OUTPATIENT VISIT EST Diagnosis: Generalized hyperhidrosis[ICD10: R61] Diagnosis: Essential (primary) hypertension[ICD10: I10] Diagnosis: Supraventricular tachycardia[ICD10: I47.1] Belia REID DO [facility] CPT-4: 03561 06/09/2018 ([id number]) OFFICE/OUTPATIENT VISIT EST Diagnosis: Stridor[ICD10: R06.1] Diagnosis: Dependence on supplemental oxygen[ICD10: Z99.81] Diagnosis: Weakness[ICD10: R53.1] Diagnosis: Supraventricular tachycardia[ICD10: I47.1] Belia REID DO [facility] CPT-4: 50347 05/21/2018 ([id number]) OFFICE/OUTPATIENT VISIT EST Diagnosis: Cervical disc disorder with radiculopathy, unspecified cervical region[ICD10: M50.10] Belia REID DO [facility] CPT-4: 43471 04/16/2018 ([id number]) OFFICE/OUTPATIENT VISIT EST Diagnosis: Migraine, unspecified, intractable, without status migrainosus[ICD10: G43.919] Diagnosis: Fibromyalgia[ICD10: M79.7] Pattie DOMINGUEZ [facility] CPT-4: 70244 04/01/2018 ([id number]) NURSE/OUTPATIENT VISIT EST Diagnosis: Hematuria, unspecified[ICD10: R31.9] Diagnosis: Dysuria[ICD10: R30.0] Belia REID [employer] [facility] CPT-4: 37382 03/17/2018 ([id number]) OFFICE/OUTPATIENT VISIT EST Diagnosis: Erythema intertrigo[ICD10: L30.4] Diagnosis: Chronic obstructive pulmonary disease with (acute) exacerbation[ICD10: J44.1] Diagnosis: Type 2 diabetes mellitus with hyperglycemia[ICD10: E11.65] Belia REID [employer] [facility] CPT-4: 34965 03/06/2018 ([id number]) OFFICE/OUTPATIENT VISIT EST Diagnosis: Cervicalgia[ICD10: M54.2] Pattie AMBRIZ [employer] [facility] CPT-4: 51750 02/05/2018 ([id number]) OFFICE/OUTPATIENT VISIT EST Diagnosis: Candidiasis of skin and nail[ICD10: B37.2] Diagnosis: Cervicalgia[ICD10: M54.2] Pattie AMBRIZ [employer] [facility] CPT-4: 19136 01/20/2018 ([id number]) OFFICE/OUTPATIENT VISIT EST Diagnosis: Pain in thoracic spine[ICD10: M54.6] Diagnosis: Radiculopathy, thoracic region[ICD10: M54.14] Belia REID [employer] [facility] CPT-4: 88555 12/25/2017 ([id number]) OFFICE/OUTPATIENT VISIT EST Diagnosis: Pain in thoracic spine[ICD10: M54.6] Diagnosis: Other muscle spasm[ICD10: M62.838] Diagnosis: FLU VACCINE[ICD10: Z23] Diagnosis: PNEUMOCOCCAL VACCINE[ICD10: Z23] Belia REID DO [facility] CPT-4: 78083 12/17/2017 ([id number]) OFFICE/OUTPATIENT VISIT EST Diagnosis: Chronic obstructive pulmonary disease with (acute) exacerbation[ICD10: J44.1] Belia REID DO [facility] CPT- 4: 58571 10/30/2017 ([id number]) OFFICE/OUTPATIENT VISIT EST Diagnosis: Chronic obstructive pulmonary disease with acute lower respiratory infection[ICD10: J44.0] Diagnosis: Mild intermittent asthma with (acute) exacerbation[ICD10: J45.21] Belia REID DO [facility] CPT-4: 47871 10/23/2017 ([id number]) NURSE/OUTPATIENT VISIT EST Diagnosis: Migraine, unspecified, not intractable, without status migrainosus[ICD10: G43.909] Belia REID [facility] CPT - 4: 96942 08/26/2017 ([id number]) OFFICE/OUTPATIENT VISIT EST Diagnosis: Urinary tract infection, site not specified[ICD10: N39.0] Diagnosis: Encounter for screening for osteoporosis[ICD10: Z13.820] Diagnosis: Encounter for screening mammogram for malignant neoplasm of breast[ICD10: Z12.31] Diagnosis: Acute bronchitis, unspecified[ICD10: J20.9] Pattie REID DO [facility] CPT-4: 29594 07/19/2017 ([id number]) OFFICE/OUTPATIENT VISIT EST Diagnosis: Rash and other nonspecific skin eruption[ICD10: R21] Pattie REID DO [facility] CPT-4: 88381 05/29/2017 ([id number]) OFFICE/OUTPATIENT VISIT EST Diagnosis: Diarrhea, unspecified[ICD10: R19.7] Diagnosis: Tinea corporis[ICD10: B35.4] Diagnosis: Tinea cruris[ICD10: B35.6] Diagnosis: Migraine, unspecified, not intractable, without status migrainosus[ICD10: G43.909] Belia REID DO [facility] CPT - 4: 55805 05/07/2017 ([id number]) OFFICE/OUTPATIENT VISIT EST Diagnosis: Stridor[ICD10: R06.1] Diagnosis: Chronic obstructive pulmonary disease with (acute) exacerbation[ICD10: J44.1] Belia REID DO [facility] CPT- 4: 12386 03/18/2017 ([id number]) OFFICE/OUTPATIENT VISIT EST Diagnosis: Type 2 diabetes mellitus with hyperglycemia[ICD10: E11.65] Belia REID DO [facility] CPT-4: 91470 02/27/2017 OFFICE/OUTPATIENT VISIT EST Diagnosis: Type 2 diabetes mellitus with hyperglycemia[ICD10: E11.65] Pattie REID [employer] [facility] CPT-4: 71951 02/22/2017 ([id number]) OFFICE/OUTPATIENT VISIT EST Diagnosis: Urinary tract infection, site not specified[ICD10: N39.0] Diagnosis: Pneumonia, unspecified organism[ICD10: J18.9] Diagnosis: Type 2 diabetes mellitus with hyperglycemia[ICD10: E11.65] Belia REID [employer] [facility] CPT-4: 28043 01/23/2017 ([id number]) OFFICE/OUTPATIENT VISIT EST Diagnosis: Type 2 diabetes mellitus with hyperglycemia[ICD10: E11.65] Diagnosis: Localized edema[ICD10: R60.0] Diagnosis: PNEUMOCOCCAL VACCINE[ICD10: Z23] Diagnosis: FLU VACCINE[ICD10: Z23] Belia [facility] CPT-4: 36802 12/20/2016 OFFICE/OUTPATIENT VISIT EST Diagnosis: Pain in thoracic spine[ICD10: M54.6] Diagnosis: Low back pain[ICD10: M54.5] Diagnosis: Cervicalgia[ICD10: M54.2] Diagnosis: Cough[ICD10: R05] Celeste Ferreira BELIA REID [employer] [facility] CPT-4: 37676 10/08/2016 ([id number]) OFFICE/OUTPATIENT VISIT EST Diagnosis: Primary insomnia[ICD10: F51.01] Diagnosis: Migraine, unspecified, not intractable, without status migrainosus[ICD10: G43.909] Diagnosis: Type 2 diabetes mellitus with hyperglycemia[ICD10: E11.65] Belia REID DO [facility] CPT-4: 87200 09/19/2016 ([id number]) OFFICE/OUTPATIENT VISIT EST Diagnosis: Migraine, unspecified, not intractable, without status migrainosus[ICD10: G43.909] Diagnosis: Generalized abdominal pain[ICD10: R10.84] Diagnosis: Cough[ICD10: R05] Belia REID DO [facility] CPT-4: 72587 08/20/2016 ([id number]) OFFICE/OUTPATIENT VISIT EST Diagnosis: Chronic obstructive pulmonary disease, unspecified[ICD10: J44.9] Diagnosis: Stridor[ICD10: R06.1] Belia REID DO [facility] CPT-4: 84584 06/19/2016 ([id number]) OFFICE/OUTPATIENT VISIT EST Diagnosis: Chronic obstructive pulmonary disease, unspecified[ICD10: J44.9] Diagnosis: Personal history of urinary (tract) infections[ICD10: Z87.440] Belia REID DO [facility] CPT-4: 49219 06/04/2016 ([id number]) OFFICE/OUTPATIENT VISIT EST Diagnosis: Stridor[ICD10: R06.1] Diagnosis: Chronic obstructive pulmonary disease with acute lower respiratory infection[ICD10: J44.0] Diagnosis: Other specified diseases of intestine[ICD10: K63.89] Diagnosis: Cystitis, unspecified without hematuria[ICD10: N30.90] Belia REID DO [facility] CPT-4: 43334 05/02/2016 ([id number]) OFFICE/OUTPATIENT VISIT EST Diagnosis: Fibromyalgia[ICD10: M79.7] Diagnosis: Urinary tract infection, site not specified[ICD10: N39.0] Belia REID DO [facility] CPT-4: 36366 04/03/2016 ([id number]) OFFICE/OUTPATIENT VISIT EST Diagnosis: Unspecified asthma, uncomplicated[ICD10: J45.909] Diagnosis: Cough[ICD10: R05] Lidia CORNELLLINE Yuridia REID [employer] [facility] T-4: 20312 02/29/2016 ([id number]) OFFICE/OUTPATIENT VISIT EST Diagnosis: Migraine, unspecified, intractable, without status migrainosus[ICD10: G43.919] Diagnosis: Urinary tract infection, site not specified[ICD10: N39.0] Belia TomlinsonMayda ANUSHKA [employer] [facility] CPT-4: 12524 02/02/2016 ([id number]) OFFICE/OUTPATIENT VISIT EST Diagnosis: Urinary tract infection, site not specified[ICD10: N39.0] Diagnosis: Unspecified abdominal pain[ICD10: R10.9] Diagnosis: Pain in thoracic spine[ICD10: M54.6] Diagnosis: Type 2 diabetes mellitus with diabetic neuropathic arthropathy[ICD10: E11.610] Belia HSUQUELINE BushraMayda ANUSHKA [employer] [facility] CPT-4: 06647 12/05/2015 ([id number]) OFFICE/OUTPATIENT VISIT EST Diagnosis: Chronic obstructive pulmonary disease with (acute) exacerbation[ICD10: J44.1] Diagnosis: Migraine, unspecified, not intractable, without status migrainosus[ICD10: G43.909] Lidia HSUQUELINE BushraMayda ANUSHKA [employer] [facility] CPT -4: 96801 10/26/2015 ([id number]) OFFICE/OUTPATIENT VISIT EST Diagnosis: Hematuria, unspecified[ICD10: R31.9] Diagnosis: Urinary tract infection, site not specified[ICD10: N39.0] Lidia HSUQUELINE BushraMayda ANUSHKA [employer] [facility] CPT-4: 22427 10/05/2015 OFFICE/OUTPATIENT VISIT EST Diagnosis: Chronic obstructive pulmonary disease, unspecified[ICD10: J44.9] Diagnosis: Muscle weakness (generalized)[ICD10: M62.81] Diagnosis: Polyneuropathy, unspecified[ICD10: G62.9] Diagnosis: Other intervertebral disc degeneration, 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] Diagnosis: Fibromyalgia[ICD10: M79.7] Beliaclayton HSUQUELINE Yuridia DAILEYER [employer] [facility] CPT-4: 99633 09/15/2015 ([id number]) OFFICE/OUTPATIENT VISIT EST Diagnosis: Disorientation, unspecified[ICD10: R41.0] Diagnosis: Headache[ICD10: R51] Diagnosis: Paresthesia of skin[ICD10: R20.2] Lidia REID DO [facility] CPT-4: 50059 08/24/2015 ([id number]) OFFICE/OUTPATIENT VISIT EST Diagnosis: Type 2 diabetes mellitus with hyperglycemia[ICD10: E11.65] Diagnosis: Chronic obstructive pulmonary disease with acute lower respiratory infection[ICD10: J44.0] Belia REID DO [facility] CPT-4: 74964 07/05/2015 ([id number]) OFFICE/OUTPATIENT VISIT EST Diagnosis: Mild intermittent asthma with (acute) exacerbation[ICD10: J45.21] Diagnosis: Chronic obstructive pulmonary disease, unspecified[ICD10: J44.9] Belia REID [facility] CPT-4: 57202 06/06/2015 ([id number]) OFFICE/OUTPATIENT VISIT EST Diagnosis: Chronic obstructive pulmonary disease with (acute) exacerbation[ICD10: J44.1] Lidia REID [facility] CPT- 4: 68055 05/23/2015 ([id number]) OFFICE/OUTPATIENT VISIT EST Diagnosis: Type 2 diabetes mellitus with hyperglycemia[ICD10: E11.65] Diagnosis: Functional dyspepsia[ICD10: K30] Belia REID DO [facility] CPT-4: 76816 05/05/2015 ([id number]) OFFICE/OUTPATIENT VISIT EST Diagnosis: Type 2 diabetes mellitus with hyperglycemia[ICD10: E11.65] Diagnosis: Glycosuria[ICD10: R81] Diagnosis: Urinary tract infection, site not specified[ICD10: N39.0] Belia REID DO [facility] CPT-4: 53223 03/30/2015 ([id number]) OFFICE/OUTPATIENT VISIT EST Diagnosis: Generalized abdominal pain[ICD10: R10.84] Diagnosis: Diarrhea, unspecified[ICD10: R19.7] Diagnosis: Urinary tract infection, site not specified[ICD10: N39.0] Diagnosis: Gastro-esophageal reflux disease without esophagitis[ICD10: K21.9] Belia [facility] CPT-4: 76225 02/03/2015 ([id number]) OFFICE/OUTPATIENT VISIT EST Diagnosis: Other specified noninflammatory disorders of vagina[ICD10: N89.8] Diagnosis: Follicular disorder, unspecified[ICD10: L73.9] Diagnosis: Functional dyspepsia[ICD10: K30] Diagnosis: FLU VACCINE[ICD10: Z23] Belia 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PT[facility]: 76381 09/02/2014 ([id number]) OFFICE/OUTPATIENT VISIT EST Diagnosis: Cervical radiculopathy[ICD9: 723.4] Diagnosis: Cervicalgia[ICD9: 723.1] Diagnosis: Degenerative disc disease, cervical[ICD9: 722.4] 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I[ICD9: 250.00] [facility] CPT-[facility]: 56126 04/01/2014 OFFICE/OUTPATIENT VISIT EST Diagnosis: Reactive airway disease[ICD9: 493.90] Belia HSUPAUL LUBNA BushraMayda [facility]: 48736 03/16/2014 ([id number]) OFFICE/OUTPATIENT VISIT EST Diagnosis: BRONCHITIS, ACUTE[ICD9: 466.0] Diagnosis: Reactive airway disease[ICD9: 493.90] Belia Reid MINAL LUBNA BushraMayda [facility] CPT-[facility]: 43389 03/09/2014 OFFICE/OUTPATIENT VISIT EST Diagnosis: BRONCHITIS, ACUTE[ICD9: 466.0] Diagnosis: WHEEZING[ICD9: 786.07] Huong Osborne BELIA BushraMayda RALF Peguero [facility] CPT-4: 10830 03/03/2014 OFFICE/OUTPATIENT VISIT EST Diagnosis: BRONCHITIS, ACUTE[ICD9: 466.0] Diagnosis: WHEEZING[ICD9: 786.07] Huong Peguero [facility] CPT-4: 72173 03/01/2014 ([id number]) OFFICE/OUTPATIENT VISIT EST Diagnosis: GERD[ICD9: 530.81] Diagnosis: ARTHRALGIA-MULTIPLE SITES[ICD9: 719.49] Diagnosis: LUMB/LUMBOSAC DISC DEGEN[ICD9: 722.52] Diagnosis: - I - FIBROMYALGIA[ICD9: 729.1] Belia Humphriesbeckyannie CORNELLBELIA BushraMayda ANUSHKA [facility] CPT-4: 26163 02/09/2014 ([id number]) OFFICE/OUTPATIENT VISIT EST Diagnosis: Peptic ulcer disease[ICD9: 533.90] Diagnosis: RESTLESS LEGS SYNDROME[ICD9: 333.94] Diagnosis: Neuropathy[ICD9: 355.9] Belia Humphriesbeckyannie CORNELLBELIA BushraMayda LUIS [facility] CPT-4: 38270 12/23/2013 ([id number]) OFFICE/OUTPATIENT VISIT EST Diagnosis: URINARY TRACT INFECTION[ICD9: 599.0] Belia Humphriesbeckyannie CORNELL CLAYTON BushraMayda ANUSHKA [facility] CPT-4: 60035 10/30/2013 ([id number]) OFFICE/OUTPATIENT VISIT EST Diagnosis: Flank pain[ICD9: 789.00] Belia Humphriesbeckyannie CORNELLBELIA BushraMayda [facility] CPT-4: 12260 10/21/2013 ([id number]) OFFICE/OUTPATIENT VISIT EST Diagnosis: INFLAMED SEBORR KERATOS[ICD9: 702.11] Diagnosis: Brachioradial pruritus[ICD9: 698.9] Diagnosis: ASTHMA NOS[ICD9: 493.90] Belia Humphriesbeckyannie CORNELLBELIA BushraMayda KIESHA [facility] CPT-4: 31155 10/05/2013 ([id number]) OFFICE/OUTPATIENT VISIT EST Diagnosis: HYPERTENSION[ICD9: 401.9] Diagnosis: - I - FIBROMYALGIA[ICD9: 729.1] Diagnosis: DIZZINESS/VERTIGO[ICD9: 780.4] Diagnosis: MIGRAINE NOS/NOT INTRCBL[ICD9: 346.90] Diagnosis: Diabetic peripheral neuropathy[ICD9: 250.60] Diagnosis: Flank pain[ICD9: 789.00] Belia BRUNSON Yuridia [facility] CPT-4: 37382 08/04/2013 ([id number]) OFFICE/OUTPATIENT VISIT EST Diagnosis: ALLERGIC RHINITIS[ICD9: 477.9] Belia CORNELLLINE Bushra REID [facility] CPT-4: 67914 07/13/2013 OFFICE/OUTPATIENT VISIT EST Diagnosis: URINARY TRACT INFECTION[ICD9: 599.0] Huong De LunaFidepool REID [facility] CPT-4: 28893 07/03/2013 OFFICE/OUTPATIENT VISIT EST Diagnosis: HYPERTENSION[ICD9: 401.9] Diagnosis: URINARY TRACT INFECTION[ICD9: 599.0] Diagnosis: BACKACHE[ICD9: 724.5] Diagnosis: URINARY INCONTINENCE[ICD9: 788.30] Huong De LunaFidepool BASS MARIE Yuridia [facility]: 18024 05/27/2013 ([id number]) OFFICE/OUTPATIENT VISIT EST Diagnosis: Flank pain[ICD9: 789.00] Belia Zacharybeckyannie CORNELLBELIA BushraMayda [facility] CPT-4: 81182 05/25/2013 ([id number]) OFFICE/OUTPATIENT VISIT EST Diagnosis: B-COMPLEX DEFIC NEC[ICD9: 266.2] Belia Anushka CORNELLLINE BushraMayda [facility] CPT-[facility]: 19871 05/04/2013 ([id number]) OFFICE/OUTPATIENT VISIT EST Diagnosis: ALLERGIC RHINITIS[ICD9: 477.9] Diagnosis: Vitamin B12 deficiency[ICD9: 266.2] Belia THOMPSON Yuridia [facility] CPT[facility]: 14907 04/17/2013 ([id number]) OFFICE/OUTPATIENT VISIT EST 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I[ICD9: 250.00] Diagnosis: URINARY TRACT INFECTION[ICD9: 599.0] Diagnosis: DIZZINESS/VERTIGO[ICD9: 780.4] Diagnosis: DIARRHEA[ICD9: 787.91] Belia BRUNSON BushraMayda ZACH[facility]ECKYReggie [facility] CPT-4: 57194 04/06/2013 ([id number]) OFFICE/OUTPATIENT VISIT EST Diagnosis: URINARY TRACT INFECTION[ICD9: 599.0] Diagnosis: URINARY RETENTION[ICD9: 788.20] Belia REID [facility] CPT-4: 91957 11/10/2012 ([id number]) OFFICE/OUTPATIENT VISIT EST Diagnosis: TACHYCARDIA[ICD9: 785.0] Diagnosis: SYNCOPE AND COLLAPSE[ICD9: 780.2] Diagnosis: CONSCIOUSNS ALTERAT NEC[ICD9: 780.09] [facility]: 36251 09/02/2012 OFFICE/OUTPATIENT VISIT EST Diagnosis: TACHYCARDIA[ICD9: 785.0] Diagnosis: SYNCOPE AND COLLAPSE[ICD9: 780.2] Belia REID [facility] CPT-4: 55162 08/04/2012 ([id number]) OFFICE/OUTPATIENT VISIT EST Diagnosis: Loss of consciousness[ICD9: 780.09] Diagnosis: Tachycardia[ICD9: 785.0] Diagnosis: MALAISE AND FATIGUE[ICD9: 780.79] [facility]PT-[facility]: 57429 07/21/2012 ([id number]) OFFICE/OUTPATIENT VISIT EST Diagnosis: BRONCHITIS, ACUTE[ICD9: 466.0] Diagnosis: ASTHMA NOS[ICD9: 493.90] Belia [facility] CPT-4: 33206 07/02/2012 ([id number]) OFFICE/OUTPATIENT VISIT EST Diagnosis: CEPHALGIA[ICD9: 784.0] Belia Peguero [facility] CPT-4: 61691 06/25/2012 ([id number]) OFFICE/OUTPATIENT VISIT EST Diagnosis: GERD[ICD9: 530.81] Diagnosis: DIARRHEA[ICD9: 787.91] Diagnosis: URINARY TRACT INFECTION[ICD9: 599.0] Diagnosis: ASTHMA NOS[ICD9: 493.90] Diagnosis: ALLERGIC RHINITIS[ICD9: 477.9] Belia REID [facility] CPT-4: 92230 06/24/2012 ([id number]) OFFICE/OUTPATIENT VISIT EST Diagnosis: MIGRAINE NOS/NOT INTRCBL[ICD9: 346.90] Diagnosis: TREMOR NEC[ICD9: 333.1] Diagnosis: CHRONIC PAIN SYNDROME[ICD9: 338.4] Belia Orebeckyannie KRAIGKIMI MARIE BushraMayda ANUSHKA [employer] [facility] CPT-4: 98920 05/20/2012 ([id number]) OFFICE/OUTPATIENT VISIT EST Diagnosis: DIZZINESS/VERTIGO[ICD9: 780.4] Diagnosis: PALPITATIONS[ICD9: 785.1] Diagnosis: TREMOR NEC[ICD9: 333.1] Diagnosis: ANXIETY STATE NOS[ICD9: 300.00] Diagnosis: POSTTRAUMATIC STRESS DISORDER[ICD9: 309.81] Belia Humphriesnilson BRUNSON BushraMayda ANUSHKA [employer] [facility] CPT-4: 47866 05/08/2012 ([id number]) OFFICE/OUTPATIENT VISIT EST Diagnosis: MIGRAINE NOS/NOT INTRCBL[ICD9: 346.90] Diagnosis: FIBROMYALGIA[ICD9: 729.1] Diagnosis: SYNCOPE AND COLLAPSE[ICD9: 780.2] Diagnosis: Diabetic peripheral neuropathy[ICD9: 250.60] Belia Smithannie BELIA BushraMayda ANUSHKA [employer] [facility] CPT-4: 73181 04/22/2012 OFFICE/OUTPATIENT VISIT EST Diagnosis: ROTATOR CUFF DIS NEC[ICD9: 726.19] Diagnosis: JOINT PAIN-SHLDER[ICD9: 719.41] Diagnosis: DYSPEPSIA[ICD9: 536.8] Belia Zacharynilson BELIA BushraMayda RALF Peguero [employer] CPT-4: 12995 02/13/2012 ([id number]) OFFICE/OUTPATIENT VISIT EST Diagnosis: MIGRAINE NOS/NOT INTRCBL[ICD9: 346.90] Diagnosis: GERD[ICD9: 530.81] Diagnosis: DYSPEPSIA[ICD9: 536.8] Belia Zacharynilson BRUNSON BushraMayda RALF Peguero [employer] [facility] CPT-4: 31758 01/28/2012 OFFICE/OUTPATIENT VISIT EST Diagnosis: CEPHALGIA[ICD9: 784.0] Diagnosis: MIGRAINE NOS/NOT INTRCBL[ICD9: 346.90] Diagnosis: GERD[ICD9: 530.81] Diagnosis: INSOMNIA NOS[ICD9: 780.52] Belia BRUNSON BushraMayda RAND DAILEYER [employer] [facility] CPT-4: 14854 12/26/2011 ([id number]) OFFICE/OUTPATIENT VISIT EST Diagnosis: CEPHALGIA[ICD9: 784.0] Diagnosis: MIGRAINE NOS/NOT INTRCBL[ICD9: 346.90] Diagnosis: MALAISE AND FATIGUE[ICD9: 780.79] Diagnosis: FIBROMYALGIA[ICD9: 729.1] Diagnosis: ALLERGIC RHINITIS[ICD9: 477.9] Belia REID [facility] CPT-4: 90105 11/14/2011 ([id number]) OFFICE/OUTPATIENT VISIT EST Diagnosis: MALAISE AND FATIGUE[ICD9: 780.79] Diagnosis: MUSCLE WEAKNESS-GENERAL[ICD9: 728.87] Diagnosis: MIGRAINE NOS/NOT INTRCBL[ICD9: 346.90] Diagnosis: JOINT PAIN-SHLDER[ICD9: 719.41] Belia REID [facility] CPT-4: 17974 09/12/2011 ([id number]) OFFICE/OUTPATIENT VISIT EST Diagnosis: CONCUSSION[ICD9: 850.9] Diagnosis: Ataxia[ICD9: 781.3] Diagnosis: DIZZINESS/VERTIGO[ICD9: 780.4] Belia REID [facility] CPT-4: 66027 08/15/2011 ([id number]) OFFICE/OUTPATIENT VISIT EST Diagnosis: THROMBOPHLEBITIS[ICD9: 451.9] Diagnosis: Subacromial bursitis[ICD9: 726.19] Diagnosis: ALLERGIC RHINITIS[ICD9: 477.9] Diagnosis: Lipoma[ICD9: 214.9] Belia REID [facility] CPT-4: 78245 08/09/2011 ([id number]) OFFICE/OUTPATIENT VISIT EST Diagnosis: THROMBOPHLEBITIS[ICD9: 451.9] Diagnosis: Arm pain[ICD9: 729.5] Diagnosis: Clostridium difficile colitis[ICD9: 008.45] Diagnosis: URINARY TRACT INFECTION[ICD9: 599.0] Belia REID [facility] CPT-4: 74676 07/03/2011 ([id number]) OFFICE/OUTPATIENT VISIT EST Diagnosis: ARTHRALGIA-MULTIPLE SITES[ICD9: 719.49] Diagnosis: Muscle cramp[ICD9: 729.82] Diagnosis: INSOMNIA NOS[ICD9: 780.52] Belia CORNELLLINE [facility]idia [facility]: 06642 06/04/2011 OFFICE/OUTPATIENT VISIT EST Diagnosis: Headache[ICD9: 784.0] Diagnosis: Allergic rhinitis[ICD9: 477.9] [facility]: 77321 05/03/2011 OFFICE/OUTPATIENT VISIT EST Diagnosis: LUMB/LUMBOSAC DISC DEGEN[ICD9: 722.52] Diagnosis: MIGRAINE NOS/NOT INTRCBL[ICD9: 346.90] Diagnosis: CHRONIC PAIN SYNDROME[ICD9: 338.4] Diagnosis: RESTLESS LEGS SYNDROME[ICD9: 333.94] Belia Zacharybeckyannie HSUROBERTO ARNODL Yuridia [facility] CPT-[facility]: 19429 04/05/2011 OFFICE/OUTPATIENT VISIT EST Diagnosis: MIGRAINE NOS/NOT INTRCBL[ICD9: 346.90] Diagnosis: GERD[ICD9: 530.81] Bel[facility] CPT-[facility]: 96929 03/08/2011 OFFICE/OUTPATIENT VISIT EST Diagnosis: URINARY TRACT INFECTION[ICD9: 599.0] Diagnosis: Vertigo[ICD9: 780.4] Diagnosis: GERD[ICD9: 530.81] Bel[facility] CPT-[facility]: 10582 01/24/2011 OFFICE/OUTPATIENT VISIT EST Diagnosis: Hypotension[ICD9: 458.9] Diagnosis: Syncopal episodes[ICD9: 780.2] Diagnosis: MIGRAINE NOS/NOT INTRCBL[ICD9: 346.90] Diagnosis: MALAISE AND FATIGUE[ICD9: 780.79] Belia Zacharynilson Paredes Yuridia [facility] CPT-4: 94332 01/02/2011 OFFICE/OUTPATIENT VISIT EST Diagnosis: Tinea cruris[ICD9: 110.3] Diagnosis: Intertrigo[ICD9: 695.89] Diagnosis: MIGRAINE NOS/NOT INTRCBL[ICD9: 346.90] Belia COKER Yuridia [facility] CPT-4: 72295 12/07/2010 OFFICE/OUTPATIENT VISIT EST Diagnosis: PALPITATIONS[ICD9: 785.1] Diagnosis: ANXIETY STATE NOS[ICD9: 300.00] Belia Zacharybeckyannie BRUNSON [facility] CPT-4: 35203 11/16/2010 OFFICE/OUTPATIENT VISIT EST Diagnosis: URINARY TRACT INFECTION[ICD9: 599.0] Diagnosis: MIGRAINE NOS/NOT INTRCBL[ICD9: 346.90] Iraida Robert SONJA UELINE [facility] CPT-4: 80865 11/02/2010 OFFICE/OUTPATIENT VISIT EST Diagnosis: ALLERGIC RHINITIS[ICD9: 477.9] Diagnosis: ANXIETY STATE NOS[ICD9: 300.00] Belia Zacharynilson BELIA [facility] CPT-4: 95087 10/18/2010 OFFICE/OUTPATIENT VISIT EST Belia Anushka [facility] CPT- 4: 29802 09/19/2010 OFFICE/OUTPATIENT VISIT EST Belia Zacharybeckyannie [facility]UNSON [facility] CPT- 4: 70690 09/06/2010 ([id number]) OFFICE/OUTPATIENT VISIT EST Belia Anushka CASILLAS UEL[facility] CPT-4: 57647 08/10/2010 ([id number]) OFFICE/OUTPATIENT VISIT EST Belia Anushka CASILLAS UEL[facility] CPT-4: 44988 05/11/2010 ([id number]) OFFICE/OUTPATIENT VISIT, EST Belia HSU ROBERTOLINE [facility] CPT-4: 04176 04/06/2010 ([id number]) OFFICE/OUTPATIENT VISIT, EST Belia HSU QUELINE [facility] CPT-4: 94886 02/09/2010 ([id number]) OFFICE/OUTPATIENT VISIT, EST Belia HSU ROBERTOLINE [facility] CPT-4: 73296 01/05/2010 ([id number]) OFFICE/OUTPATIENT VISIT, EST Belia HSU ROBERTOLINE 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 ICD-9 : 786.1 ICD-10 : R06.1 05/06/2019 Visit Diagnosis Plan: COUGH Discussion: Check CT scan of chest ICD-9 : 786.2 ICD-10 : R05 05/06/2019 Patient Education: Singulair- [employer] C[employer]on [id number] https://www.[employer]/resources/getResource/61/7725169j-[email or web address]-iu Completed 05/06/2019 Care Plan: CT THORAX W/O DYE LOINC : 473 66-0 Pending 05/06/2019 Appointment: Belia Reid WPtel: [address] [place], [place] [id number] [place] RESCHEDULED 04/30/2019 Visit Diagnosis Plan: Muscle, [...] : R06.1 04/29/2019 Appointment: Belia Reid WPtel: [facility] [place] [facility] [place] Hospital Follow Up 04/29/2019 Patient Education: Valium- [employer] Coupon [id number] https://www.Symphony/sampleO' Doughty's/resources/getResource/61/c06197ex-284m-1z94-3c Completed 04/29/2019 Visit Diagnosis Plan: Weight gain [...] ICD-10 : R10.9 04/16/2019 Appointment: Pattie Sotomayor [address] [place], [place] [id number] 04/16/2019 Patient Education: cyclobenzaprine- [employer] Coupon [id number] https://www.Symphony/[employer]/resources/getResource/61/ck18n9j2-5956-6515-i7 Completed 04/16/2019 Visit Diagnosis Plan: Generalized pruritus Discussion: Hydroxyzine 25mg po TID for itching and anxiety ICD-9 : 698.9 ICD-10 : L29.9 04/08/2019 Visit Diagnosis Plan: Migraine, unspecif ied, not intractable, without status migrainosus Discussion: Increase gabapentin to 600mg po BID ICD-9 : 346.90 ICD-10 : G43.909 04/08/2019 Appointment: Belia Reid WPtel: [phone] [facility] ACUTE ILLNESS 04/08/2019 Visit Diagnosis Plan: Cervicalgia [...] : M75.52 01/22/2019 Appointment: Belia Reid WPtel: [address] [place] [address] Hospital Follow Up 01/22/2019 Visit Diagnosis Plan: Abdominal pain Discussion: urine culture sent to assess for any infection. rocephin given in office to cover for pyelonephritis. instructed to push fluids. call office with any new or worsening symptoms. ICD-9 : 789.00 ICD-10 : R10.9 01/07/2019 Appointment: Pattie Sotomayor [address] ACUTE ILLNESS 01/07/2019 Visit Diagnosis Plan: Low back pain Discussion: Stat C T of abdomen/pelvis now ICD-9 : 724.2 ICD-10 : M54.5 12/24/2018 Appointment: Belia Reid WPtel: [address] [place] [address] FOLLOW UP 12/24/2018 Visit Diagnosis Plan: Fibromyalgia [...] : G43.909 11/20/2018 Appointment: Belia Reid WPtel: [address] [place] [address] ACUTE ILLNESS 11/20/2018 Patient Education: baclofen- [employer] Coupon [id number] https://www.[employer].REALTIME.[employer]/samplemd/resources/getResource/61/0j3983b0-fe1d-13as-41 Completed 11/20/2018 Visit Diagnosis Plan: Migraine, unspecif ied, intractable, without status migrainosus Discussion: toradol/phenergan given in o ffice (60 mg toradol, 12.5 mg phenergan). instructed to call if no improvement or worsening. instructed to follow up with systems development consultant since headaches are occurring more frequently to make sure vision is not the cause. ICD-9 : 346.91 ICD-10 : G43.919 11/04/2018 Visit Diagnosis Plan: Acute sinusitis, unspecified Dis cussion: zithromax prescribed to cover for sinus infection due to length of symptoms and clinincal s/s. ICD-9 : 461.9 ICD-10 : J01.90 11/04/2018 Appointment: Pattie Sotomayor [address] [place] [address] ACUTE ILLNESS 11/04/2018 Appointment: Belia Reid WPtel: [phone] [phone] US CANCELED 09/24/2018 Visit Diagnosis Plan: Type 2 diabetes me llitus with diabetic neuropathy, unspecified Discussion: Retry gabapentin 300mg po q HS ICD-9 : 250.60 ICD-10 : E11.40 09/18/2018 Visit Diagnosis Plan: Encounter for [facility] adult medical examination without abnormal [...] ICD-9 : 401.9 ICD-10 : I10 09/18/2018 Visit Diagnosis Plan: Vitamin D deficiency, unspecifie d Discussion: Increase Vitamin D3 to 10,000 u daily ICD-9 : 268.9 ICD-10 : E55.9 09/18/2018 Appointment: Belia Reid WPtel: [phone] Annual Well Visit 09/18/2018 Patient Education: gabapentin- [employer] Coupon [phone] [email or web address] Completed 09/18/2018 Visit Diagnosis Plan: Pain in [...] ICD-10 : M54.89 09/08/2018 Appointment: Pattie Sotomayor [address] [place] [address] ACUTE ILLNESS 09/08/2018 Patient Education: prednisone- [employer] Coupon [phone] [email or web address]/resources/[email or web address] Completed 09/08/2018 Visit Diagnosis Plan: Acute stress [...] : L29.9 08/20/2018 Appointment: Belia Reid WPtel: [phone] [phone] ACUTE ILLNESS 08/20/2018 Patient Education: Lexapro- [employer] C[employer]on [phone] Completed 08/20/2018 Patient Education: hydroxyzine HCl- [employer] C[employer]on [phone] Completed 08/20/2018 Care Plan: MAMMOGRAM SCREENING LOINC [...] 458.8 ICD-10 : I95.2 06/19/2018 Appointment: Belia Reidtel: [address] [place], [place] [phone] US FOLLOW UP 06/19/2018 Visit Diagnosis Plan: [...] : R61 06/09/2018 Appointment: Belia Reid WPtel: [address] [place], [place] [phone] US FOLLOW UP 06/09/2018 Care Plan: CHEST X-RAY 2VW FRONTAL&LATL LOINC : 25634-3 Pending 05/26/2018 Visit Diagnosis Plan: Stridor Discussion: [...] : I47.1 05/21/2018 Appointment: Belia Reid WPtel: [address] [place], [place] [phone] Hospital Follow Up 05/21/2018 Visit Diagnosis Plan: Cervical disc diso rder with radiculopathy, unspecified cervical region Discussion: Scheduled for surgery on 06/02 10/[address] Faulkner ICD-9 : 722.0 ICD-10 : M50.10 04/16/2018 Appointment: Belia Reid WPtel: [address] [place] [address] Follow Up 04/16/2018 Visit Diagnosis Plan: Migraine, [...] ICD-10 : M79.7 04/01/2018 Appointment: Pattie Sotomayor [address] [place] [address] ACUTE ILLNESS 04/01/2018 Appointment: Belia Reid WPtel: [address] [place], [place] [phone] UA 03/17/2018 Visit Diagnosis Plan: Erythema intertrigo [...] : J44.1 03/06/2018 Appointment: Belia Reid WPtel: [address] [place], [place] [phone] Hospital Follow Up 03/06/2018 Visit Diagnosis Plan: Cervicalgia Discussion: spoke wi dr. reid about patient. increased gabapentin to bid and started on celebrex bid. tramadrol rx written out to take prn. keep scheduled appt next week for myelogram. ICD-9 : 723.1 ICD-10 : M54.2 02/05/2018 Appointment: Pattie Sotomayor [address] [place] [address] ACUTE ILLNESS 02/05/2018 Care Plan: X-RAY EXAM NECK SPINE 4/5VWS cervical LOINC : 91171-2 Pending 01/21/2018 Visit Diagnosis Plan: Candidiasis of [...] ICD-10 : M54.2 01/20/2018 Appointment: Pattie Sotomayor [address] [place] [address] ACUTE ILLNESS 01/20/2018 Visit Diagnosis Plan: Pain in thoracic spine Discussio n: Proceed with CT scan of thoracic spine Will likely need PT ICD-9 : 724.1 ICD-10 : M54.6 12/25/2017 Appointment: Belia Reid WPtel: [address] [facility] FOLLOW UP 12/25/2017 Care Plan: CT THORAX W/O DYE LOINC : 473 66-0 Pending 12/25/2017 Visit Diagnosis Plan: Pain in thoracic spine Discussio n: Stretches Alternated heat/ice Topical aspercreme with lidocaine Flexeril Recheck 1 week Flu and Pneumovax given ICD-9 : 724.1 ICD-10 : M54.6 12/17/2017 Appointment: Belia Reid WPtel: [address] [place], [place] [phone] ACUTE ILLNESS 12/17/2017 Patient Education: Patient [...] : J44.1 10/30/2017 Appointment: Belia Reid WPtel: [address] [place] [address] FOLLOW UP 10/30/2017 Patient Education: Patient Medication Summary Completed 10/30/2017 Visit Diagnosis Plan: Chronic obstructiv e pulmonary disease with acute lower respiratory infection Discussion: Continue SVNs with albuterol q4hrs Add Trelagy 1 inhalation daily Finish steroids Increase water intake Follow Up: 1 weeks ICD-9 : 496 ICD-10 : J44.0 10/23/2017 Appointment: Belia Reid WPtel: [address] [place] [address] WORK IN 10/23/2017 Patient Education: Patient Medication Summary Completed 10/23/2017 Appointment: Belia Reid WPtel: [address] [place], [place] [phone] NO SHOW 10/16/2017 Visit Diagnosis Plan: Confusional [...] : E11.65 09/17/2017 Appointment: Belia Reid WPtel: [address] [place], [place] [address] Annual Well Visit 09/17/2017 Patient Education: Patient Medication Summary Completed 09/17/2017 Appointment: Belia Reid WPtel: [address] [place], [place] [phone] [place] INJECTION 08/26/2017 Patient Education: Patient Medication Summary Completed 08/26/2017 Appointment: Belia Reid WPtel: [address] [facility] [place] CANCELED 07/31/2017 Visit Diagnosis Plan: Encounter [...] ICD-10 : J20.9 07/19/2017 Appointment: Pattie Sotomayor [address] [place] [address] ACUTE ILLNESS 07/19/2017 Patient Education: Patient Medication Summary Completed 07/19/2017 Care Plan: MAMMOGRAM SCREENING LOINC : 2 6347-5 Pending 07/19/2017 Patient Education: Patient Medication Summary Completed 06/05/2017 Care Plan: LIPID PANEL LOINC : 50891-1 Pending 06/05/2017 Care Plan: A1C HPLC LOINC : 31934-0 Pending 06/05/2017 Visit Diagnosis Plan: Rash and [...] ICD-10 : R21 05/29/2017 Appointment: Pattie Sotomayor [address] [place] [address] FOLLOW UP 05/29/2017 Patient Education: Patient Medication Summary Completed 05/29/2017 Visit Diagnosis Plan: Tinea corporis Discussion: Diflu can and topical nystatin Follow Up: 2 weeks ICD-9 : 110.5 ICD-10 : B35.4 05/07/2017 Visit Diagnosis Plan: Diarrhea, unspecified Discussion : Diflucan Cholestyramine Recheck 2weeks ICD-9 : 787.91 ICD-10 : R19.7 05/07/2017 Appointment: Belia Reid WPtel: [address] [place] [address] FOLLOW UP 05/07/2017 Patient Education: Patient Medication Summary Completed 05/07/2017 Appointment: Belia Reid WPtel: [address] [place] [address] [place] RESCHEDULED 04/30/2017 Visit Diagnosis Plan: Chronic obstructiv e pulmonary disease with (acute) exacerbation Discussion: Finish prednisone Continue S VNS with albuterol ICD-9 : 491.21 ICD-10 : J44.1 03/18/2017 Visit Diagnosis Plan: Stridor Discussion: Increase Ati van 0.5mg po to TID routinely for next week then can go back to prn ICD-9 : 786.1 ICD-10 : R06.1 03/18/2017 Appointment: Belia Reid WPtel: [address] [place] [address] ER Follow UP 03/18/2017 Patient Education: Patient [...] E11.65 02/27/2017 Appointment: Belia Reid WPtel: [address] [facility] [place] FOLLOW UP 02/27/2017 Patient Education: Patient [...] ICD-10 : E11.65 02/22/2017 Appointment: Pattie Sotomayor [address] [place] [address] ACUTE ILLNESS 02/22/2017 Patient Education: Patient Medication [...] J18.9 01/23/2017 Appointment: Belia Reid WPtel: [address] [facility] ER Follow UP 01/23/2017 Patient Education: Patient Medication Summary Completed 01/23/2017 [facility] [facility] 01/17/2017 Appointment: Pattie Sotomayor [address] [facility] Annual Well Visit 01/14/2017 Visit Diagnosis Plan: Type 2 diabetes mellitus with hy perglycemia Discussion: Check CMP, HbA1C Flu shot and Prevnar 13 given Follow Up: 3 months ICD-9 : 250.02 ICD-10 : E11.65 12/20/2016 Visit Diagnosis Plan: Localized edema Discussion: Low Na diet Compression socks/Elevate feet ICD-9 : 782.3 ICD-10 : R60.0 12/20/2016 Appointment: Belia Reid WPtel: [address] [place], [place] [phone] FOLLOW UP 12/20/2016 Patient Education: Patient Medication Summary Completed 12/20/2016 Patient Education: Patient Medication Summary Completed 10/10/2016 Visit Plan: Xrays of cervical, thoracic and lumbar spine at ERx for Mobic (stop NSAIDS except Tylenol) and Flexeril UA sent for C&S Using SVN Call in 2-3 days if pain not improved or any worsening 10/08/2016 Appointment: Celeste Ferreira WPtel: [address] [place], [place] [phone] ACUTE ILLNESS 10/08/2016 Patient Education: Patient [...] : E11.65 09/19/2016 Appointment: Belia Reid WPtel: [address] [facility] 09/18 confirmed`sl FOLLOW UP 09/19/2016 Patient Education: [...] R10.84 08/20/2016 Appointment: Belia Reid WPtel: [address] [place], [place] [address] 08/16 confirmed~sl FOLLOW UP 08/20/2016 Patient Education: [...] J44.9 06/19/2016 Appointment: Belia Reid WPtel: [address] [place] [address] 06/18 confirmed ~ Hospital Follow Up 06/19/2016 [...] : Z87.440 06/04/2016 Appointment: Belia Reid WPtel: [address] [place], [place] [phone] 06/01 confirmed~ FOLLOW UP 06/04/2016 Patient Education: [...] : R06.1 05/02/2016 Appointment: Belia Reid WPtel: [facility] [place] 05/01 confirmed [facility] Hospital Follow Up 05/02/2016 Patient Education: [...] : N39.0 04/03/2016 Appointment: Belia Reid WPtel: [address] [place] [address] [facility] 04/03/2016 Patient Education: Patient Medication Summary Completed 04/03/2016 Visit Plan: Lungs are clear Her symptoms and exam are all upper airway restriction/constriction Can try supportive care Rx as above Follow up PRN 02/29/2016 Appointment: Lidia Hwang [address] [facility] [place] ACUTE ILLNESS 02/29/2016 Patient Education: Patient Medication Summary Completed 02/29/2016 Visit Plan: Toradol/Phenergan today for Migraine Change to Clindamycin to cover lactobacillus for UTI Cover with flagyl due to hx of C. Diff 02/02/2016 Appointment: Belia Reid WPtel: [address] [place] [address] 01/31 confirmed`sl ACUTE ILLNESS 02/02/2016 Patient Education: Patient Medication Summary Completed 02/02/2016 Visit Plan: Increase neurontin to 300mg q AM and 600mg q PM Discussed neurology re-evaluation Flu shot given Need to check on Pneumonia shot Rx written out for albuterol 01/05/2016 Appointment: Belia Reid WPtel: [address] [place] [address] 01/03 confirmed ~sl Annual Well Visit 01/05/2016 Patient Education: Patient Medication Summary Completed 01/05/2016 Visit Plan: Cipro Culture urine hydrate Flexeril refilled Alternate heat and ice for back Increase gabapentin to 300mg po BID Notify if worsens 12/05/2015 Appointment: Belia Reid WPtel: [address] [place] [address] 11/30 confirmed~sl ACUTE ILLNESS 12/05/2015 Patient Education: Patient Medication Summary Completed 12/05/2015 Patient Education: Patient Medication Summary Completed 10/27/2015 Care Plan: COMPREH[place] : 73[address]-1 Pending 10/27/2015 Care Plan: A1C HPLC LOINC : 83373-5 Pending 10/27/2015 Visit Plan: Lungs are CTA today and is f eeling improved overall Finish meds as ordered Continue inhalers and neb treatments Discussed migraine treatment options She does not feel she needs anything additional added today Refill of Januvia sent since no samples are available today 10/26/2015 Appointment: Lidia Hwang [address] [facility] Hospital Follow Up 10/26/2015 Appointment: Lidia Hwang [address] [place], [place] [address] CANCELED 10/26/2015 Patient Education: Patient Medication Summary Completed 10/26/2015 Patient Education: Natalia Lacey+ - KENNETH - No [place] Completed 10/26/2015 Visit Plan: Office dip still abnormal Cu lture pending Switch to cipro - stop macrobid Push fluids - avoid caffeine Will call with culture results when available Follow up if worsening 10/05/2015 Appointment: Lidia Hwang [address] ER Follow UP 10/05/2015 Patient Education: Patient Medication Summary Completed 10/05/2015 Visit Plan: Proceed with PT for document ation of ROM and strength of all extremities Proceed with Power Mobility Device Trial of neurontin 300mg q HS--lyrica helped but patient unable to afford Recheck 1month 09/15/2015 Appointment: Belia Reid WPtel: [address] [place], [place] [phone] 09/13 confirmed~sl SPECIAL 09/15/2015 Patient Education: Patient Medication Summary Completed 09/15/2015 Visit Plan: Fille out Loan Discharge Pap erwork for total and permanent disability 08/25/2015 Patient Education: Patient Medication Summary Completed 08/25/2015 Visit Plan: Discussed with Dr Anushka Haywood at [facility] of head Will get last date of carotid doppler from her financial sales advisor and update if needed 08/24/2015 Appointment: Lidia Hwang [address] [place], [place] [phone] 08/22 confirmed~sl ACUTE ILLNESS 08/24/2015 Patient Education: Patient Medication Summary Completed 08/24/2015 Patient Education: Patient Medication Summary Completed 08/24/2015 Care Plan: US EXAM OF HEAD AND NECK carotid Ultrasound LOIN C : 45042-9 Pending 08/24/2015 Visit Plan: Long discussion about diet A ccuchecks daily Check HbA1C, CMP Change requip to mirapex 07/05/2015 Appointment: Belia Reidtel: [address] [place], [place] [phone] 07/03 confirmed ~sl FOLLOW UP 07/05/2015 Patient Education: Patient Medication Summary Completed 07/05/2015 Visit Plan: Add Breo ellipta 100 1 p BID Continue SVNs with duoneb QID 06/06/2015 Appointment: Belia Reid: [address] [place], [place] [phone] Patient is calling for a ride, then retu rning our call.-sp 06/01 called and patient stated she will know saturday if she can get a ride~sl 06/05 [facility] Follow Up 06/06/2015 Patient Education: Patient Medication [...] not improving 05/23/2015 Appointment: Huong Osborne WPtel: [address] [place], [place] [phone] ACUTE ILLNESS 05/23/2015 Appointment: Lidia Hwang [address] [place], [place] [phone] ER Follow UP 05/23/2015 Patient Education: Patient Medication Summary Completed 05/23/2015 Visit Plan: Check pancreatic enzymes and US of pancreas as patient can't understand why she has diabetes since has no family history Discussed weight, diet, exercise all play an important role in diabetes and are risk factors as well Continue Januvia and accuchecks daily 05/05/2015 Appointment: Belia Reid WPtel: [address] [place], [place] [phone] US FOLLOW UP 05/05/2015 Patient Education: Patient Medication Summary Completed 05/05/2015 Care Plan: US EXAM ABDOM COMPLETE LOINC : 29029-2 Ordered 05/05/2015 Visit Plan: Start Januvia 100mg daily [place] with diflucan and culture urine Accuchecks daily alternating times Recheck 6weeks 03/30/2015 Appointment: Belia Reid WPtel: [address] [place], [place] [id number] 03/29 confirmed~lb FOLLOW UP 03/30/2015 Patient Education: Patient Medication Summary Completed 03/30/2015 Appointment: Belia Reidteabigail: [address] [place] [address] 03/01 needs reschedule due to payment and insurance ~sl FOLLOW UP 03/02/2015 Visit Plan: Patient was just in ER last night so has not filled scripts yet Start Carafate and Flagyl and Cipro Add Hyophen 1 po BID Recheck 1mo 02/03/2015 Appointment: Belia Reid WPtel: [address] [place] [address] 02/02lm ~sl...02/03/15 appt confirmed cn ACUTE I LLNESS 02/03/2015 Patient Education: Patient Medication Summary Completed 02/03/2015 Visit Plan: Warm soaks to vaginal area K elex and Diflucan and observe Zofran to use prn 12/29/2014 Appointment: Belia Reid WPtel: [address] [place] [address] 12/28 Confirmed ~sl ACUTE ILLNESS 12/29/2014 Patient Education: Patient Medication Summary Completed 12/29/2014 Appointment: Huong Osborne WPtel: [address] [place] [address] FOLLOW UP 09/24/2014 Appointment: Belia Reid WPtel: [address] [place] [address] 09/15 confirmed -mf FOLLOW UP 09/16/2014 Visit Plan: Increase requip to 2mg po BI D Increase lyrica to 225mg total a day by adding an extra 75mg in AM Recheck in 2weeks Continue to patch left eye while sleeping 09/02/2014 Appointment: Belia Reid WPtel: [address] [place] [address] 09/01 appt confirmed cn Hospital Follow Up 09/02 Patient Education: Patient Medication Summary Completed 09/02/2014 Visit Plan: To [facility] for observat ion to R/O CVA 08/25/2014 Appointment: Huong Osborne: [address] [place], [place] [id number] ACUTE ILLNESS 08/25/2014 Patient Education: Patient Medication Summary Completed 08/25/2014 Referral: Aaron Jonas WPtel: [facility] [address], [facility] 1 [id number] [place] In [place] location Initiated 04/26/2014 Referral: Brian Srinivasan WPtel: [address] [id number] Referral Initiated 04/20/2014 Appointment: Belia Reid WPtel: [address] [place], [place] [phone] ER Follow UP 04/01/2014 Patient Education: Patient Medication Summary Completed 04/01/2014 Care Plan: MYELOGRAPHY NECK SPINE LOINC : 98079-5 Ordered 04/01/2014 Visit Plan: Continue Symbicort 160 at 2p BID Continue SVNs with duoneb at least QID Finish Levaquin Recheck 1mo on lyrica 03/16/2014 Appointment: Belia Reid WPtel: [address] [place], [place] [phone] 03/15 voicemail FOLLOW UP 03/16/2014 Patient Education: Patient Medication Summary Completed 03/16/2014 Visit Plan: Restart SVNs with duoneb QID Repeat prednisone Levaquin Continue symbicort Keep lyrica at same dose Recheck 1week 03/09/2014 Appointment: Belia Reid WPtel: [address] [place], [place] [phone] FOLLOW UP 03/09/2014 Patient Education: Patient Medication Summary Completed 03/09/2014 Appointment: Belia Reid WPtel: [address] [place], [place] [phone] 03/03 showed up 15 minutes late for appt -- put her on Huong's side for 10:45am FORGIVEN PER DR FOLLOW UP 03/03/2014 Appointment: Huong Osborne WPtel: [address] [place], [place] [phone] FOLLOW UP 03/03/2014 Patient Education: Patient Medication Summary Completed 03/03/2014 Appointment: Huong Osborne WPtel: [address] [place], [place] [phone] ER Follow UP 03/01/2014 Patient Education: Patient Medication Summary Completed 03/01/2014 Visit Plan: Add carafate for this next m onth Increase lyrica to 150mg q HS 02/09/2014 Appointment: Belia Reid WPtel: [address] [place], [place] [phone] [place] [address] Follow Up 02/09/2014 Patient Education: Patient Medication Summary Completed 02/09/2014 Visit Plan: Increase omeprazole back to 40mg po BID Use requip in AM and add lyrica 75mg q HS Recheck 1mo 12/23/2013 Appointment: Belia Reid WPtel: [address] [place], [place] [phone] FOLLOW UP 12/23/2013 Patient Education: Patient Medication Summary Completed 12/23/2013 Patient Education: Patient Medication Summary Completed 12/04/2013 Appointment: Belia Reid WPtel: [address] [place], [place] [phone] [facility] 10/30/2013 Patient Education: Patient Medication Summary Completed 10/30/2013 Appointment: Belia Reid WPtel: [address] [place], [place] [phone] [facility] 10/21/2013 Patient Education: Patient Medication Summary Completed 10/21/2013 Visit Plan: Cryotherapy as above TAC and hydroxyzine to use prn to itching spots and itching SKs Add Advair HFA 115/21 1 p BID 10/05/2013 Appointment: Belia Reid WPtel: [address] [place], [place] [phone] 10/01 pt called and confirmed ACUTE ILLNESS Patient Education: Patient Medication Summary Completed 10/05/2013 Appointment: Belia Reid WPtel: [address] [place], [place] [phone] [place] will pay copay and part of past balance FOLLOW U P 08/04/2013 Patient Education: Patient Medication Summary Completed 08/04/2013 Appointment: Belia Reid WPtel: [address] [place], [place] [phone] [place] INJECTION 07/13/2013 Patient Education: Patient Medication Summary Completed 07/13/2013 Appointment: Huong Osborne WPtel: [address] [place], [place] [phone] ACUTE ILLNESS 07/03/2013 Patient Education: Patient Medication Summary Completed 07/03/2013 Visit Plan: Cipro and culture urine 05/27/2013 Appointment: Huong Osborne WPtel: [address] [place], [place] [phone] 05/26 confirmed appt and notified that balance and news copy editor y is due at appt time FOLLOW UP 05/27/2013 Patient Education: Patient Medication Summary Completed 05/27/2013 Appointment: Belia Reid WPtel: [address] [place], [place] [phone] [place] UA 05/25/2013 Patient Education: Patient Medication Summary Completed 05/25/2013 Appointment: Belia Reid WPtel: [address] [place], [place] [phone] [place] INJECTION 05/04/2013 Patient Education: Patient Medication Summary Completed 05/04/2013 Appointment: Belia Reid WPtel: [address] [place], [place] [phone] [place] INJECTION 04/17/2013 Patient Education: Patient Medication Summary Completed 04/17/2013 Appointment: Belia Reid WPtel: [address] [place], [place] [phone] [place] INJECTION 04/15/2013 Appointment: Belia Reidl: [address] [place], [place] [id number] 04/02 FOLLOW UP 04/06/2013 Patient Education: Patient Medication Summary Completed 04/06/2013 Visit Plan: Obtain lab results including UA from [facility] 11/10/2012 Appointment: Belia Reid WPtel: [address] [place], [place] [phone] ER Follow UP 11/10/2012 Patient Education: Patient Medication Summary Completed 11/10/2012 Appointment: Belia Reid WPtel: [address] [place], [place] [phone] 10/30/12 patient canceled appt due to fin ances. Offered to work something out, patient declined-LB FOLLOW UP 11/05/2012 Visit Plan: Continue Bystolic at current dose Pt has fwup with Neurology on September 16 09/02/2012 Appointment: Belia Reid WPtel: [address] [place], [place] [phone] FOLLOW UP 09/02/2012 Patient Education: Patient Medication Summary Completed 09/02/2012 Visit Plan: Continue bystolic at 5mg chris ly Sees Neurology tomorrow Use oxygen at bedtime 08/04/2012 Appointment: Belia Reid WPtel: [address] [place] [id number] FOLLOW UP 08/04/2012 Patient Education: Patient Medication Summary Completed 08/04/2012 Appointment: Belia Reid WPtel: [address] [place], [place] [phone] has Hospital fwup for 07/21/12. merged appointments FOLLOW UP 07/24/2012 Visit Plan: Start Bystolic 5mg daily for tachycardia Fwup with neurology for further workup Overnight O2 sat 07/21/2012 Appointment: Belia Reid WPtel: [address] [place], [place] [phone] Hospital Follow Up 07/21/2012 Patient Education: Patient Medication Summary Completed 07/21/2012 Visit Plan: SVN with Albuterol QID Add A velox 400mg daily Notify if worsens or persists 07/02/2012 Appointment: Belia Reidtel: [address] [place], [place] [phone] ACUTE ILLNESS 07/02/2012 Patient Education: Patient Medication Summary Completed 07/02/2012 Appointment: Belia Reid WPtel: [address] [place], [place] [phone] INJECTION 06/25/2012 Patient Education: Patient Medication Summary Completed 06/25/2012 Appointment: Belia Reid WPtel: [address] [place] [address] FOLLOW UP 06/24/2012 Patient Education: Patient Medication Summary Completed 06/24/2012 Appointment: Belia Reid WPtel: [address] [place], [place] [phone] 05/19 [facility] FOLLOW UP 05/20/2012 Patient Education: Patient Medication Summary Completed 05/20/2012 Visit Plan: DC Neurontin--discussed that this may be causing some of symptoms Also discussed that stress is likely contributing factor Discussed that may be going through withdrawal from stopping pain meds cold turkey--pt states stopped meds 2wks ago do to not helping Increase Buspar to 10mg po TID 05/08/2012 Appointment: Belia Reid WPtel: [address] [place], [place] [phone] ACUTE ILLNESS 05/08/2012 Patient Education: Patient Medication Summary Completed 05/08/2012 Visit Plan: Continue current meds Contin ue lower dose on pain meds and Diazepam Still waiting on paperwork for botox for Migraines Will restart Neurontin at 600mg po q HS Pt going to stop Depakote due to can't afford 04/22/2012 Appointment: Belia Reid WPtel: [address] [place], [place] [phone] 02/18 Hospital Follow Up 04/22/2012 Patient Education: Patient Medication Summary Completed 04/22/2012 Visit Plan: Injection to shoulder as abo ve Continue current meds Has appointment with neurology on HAs in 02/13/2012 Appointment: Belia Reid WPtel: [address] [place], [place] [phone] [facility] will bring it in next week. Kianna iqbal'ed this. - [place] FOLLOW UP 02/13/2012 Patient Education: Patient Medication Summary Completed 02/13/2012 Visit Plan: Proceed with headache specia list Change nexium to Protonix Phenergan to use prn Sumatriptan to use prn Pt still on Inderal 01/28/2012 Appointment: Belia Reid WPtel: [address] [place], [place] [phone] ER Follow UP 01/28/2012 Patient Education: Patient [...] for sleep 12/26/2011 Appointment: Belia Reid WPtel: [address] [place], [place] [phone] 12/24- appt. confirmed FOLLOW UP 2 Patient Education: Patient Medication Summary Completed 12/26/2011 Appointment: Belia Reid WPtel: [address] [place], [place] [phone] [place] FOLLOW UP 11/14/2011 Patient Education: Patient Medication Summary Completed 11/14/2011 Appointment: Belia Reid WPtel: [address] [place], [place] [phone] [place] FOLLOW UP 09/12/2011 Patient Education: Patient Medication Summary Completed 09/12/2011 Visit Plan: Supportive care Decrease Liseth catalino to 50mg q HS Decrease AM dose of Valium to 5mg q HS Use Endocet sparingly 08/15/2011 Appointment: Belia Reid WPtel: [address] [place], [place] [phone] ER Follow UP 08/15/2011 Patient Education: Patient Medication Summary Completed 08/15/2011 Appointment: Belia Reid WPtel: [address] [place] [address] Spoke directly to patient yesterday and confirmed the appoin tment. ACUTE ILLNESS 08/09/2011 Patient Education: Patient Medication Summary Completed 08/09/2011 Appointment: Belia Reid WPtel: [address] [place] [address] Hospital Follow Up 07/03/2011 Patient Education: Patient Medication Summary Completed 07/03/2011 Appointment: Belia Reid WPtel: [address] [place], [place] [id number] FOLLOW UP 06/04/2011 Patient Education: Patient Medication Summary Completed 06/04/2011 Visit Plan: Pt. wants "allergy shot" but in fact wants steroid shot. Will take a break from "generic Zyrtec they are getting from [facility]" and try Singulair for 2 weeks. 05/03/2011 Appointment: Iraida Jones WPtel: [address] [place], [place] [id number] ACUTE ILLNESS 05/03/2011 Patient Education: Patient Medication Summary Completed 05/03/2011 Visit Plan: Neurontin 400mg q HS for 1we ek then 800mg q HS Decrease requip to 1mg q HS for 2wks then stop Fwup 2mos 04/05/2011 Appointment: Belia Reid WPtel: [address] [place], [place] [id number] [place] FOLLOW UP 04/05/2011 Patient Education: Patient Medication Summary Completed 04/05/2011 Visit Plan: Trial of neurontin in 2wks Iván kay current meds for stomach Pt has procedure with Dr. Ortiz next week for stone removal 03/08/2011 Appointment: Belia Reid WPtel: [address] [place] [address] Follow Up 03/08/2011 Patient Education: Patient Medication Summary Completed 03/08/2011 Appointment: Belia Reid WPtel: [address] [place] [address] FOLLOW UP 02/19/2011 Visit Plan: reports increased [...] with Flagyl 01/24/2011 Appointment: Iraida Jones WPtel: [address] [place] [address] ACUTE ILLNESS 01/24/2011 Patient Education: Patient Medication Summary Completed 01/24/2011 Appointment: Belia Reid WPtel: [address] [place] [address] FOLLOW UP 01/02/2011 Patient Education: Patient Medication Summary Completed 01/02/2011 Appointment: Belai Reid WPtel: [address] [place] [address] FOLLOW UP 12/12/2010 Appointment: Belia Reid WPtel: [address] [place] [address] ACUTE ILLNESS 12/07/2010 Patient Education: Patient Medication Summary Completed 12/07/2010 Visit Plan: Increase Buspar to 10mg po B ID 11/16/2010 Appointment: Belia Reid WPtel: [address] [place] [address] FOLLOW UP 11/16/2010 Patient Education: Patient Medication Summary Completed 11/16/2010 Appointment: Iraida Jones WPtel: [address] [place] [address] ER Follow UP 11/02/2010 Patient Education: Patient Medication Summary Completed 11/02/2010 Visit Plan: Depo-Medrol/Kenalog given fo r allergies Add BuSpar for anxiety Oxycodone 10 one p.o. q.i.d. for number 120 refilled 10/18/2010 Appointment: Belia Reid WPtel: [address] [place] [address] FOLLOW UP 10/18/2010 Patient Education: Patient Medication Summary Completed 10/18/2010 Visit Plan: Continue current meds Discus sed epidurals for back vs PT--will proceed with epidurals to thoracolumbar region to see if helps with pain 09/19/2010 Appointment: Belia Reid WPtel: [address] [place] [address] FOLLOW UP 09/19/2010 Patient Education: Patient Medication Summary Completed 09/19/2010 Visit Plan: DC MS contin Check CT scan t horacic spine Fwup pending above results 09/06/2010 Appointment: Belia Reid WPtel: [address] [place] [address] FOLLOW UP 09/06/2010 Patient Education: Patient Medication Summary Completed 09/06/2010 Visit Plan: Continue current meds Restar t MS contin 15mg po BID and use oxycodone prn Use daily senokot-s 2 po BID 08/10/2010 Appointment: Belia Reid WPtel: [address] [place] [address] [place] FOLLOW UP 08/10/2010 Patient Education: Patient Medication Summary Completed 08/10/2010 Visit Plan: Depomedrol/Kenalog given Pt sees ENT later this month Cont current meds Mammo scheduled 05/11/2010 Appointment: Belia Reid WPtel: [address] [place] [address] FOLLOW UP 05/11/2010 Patient Education: Patient Medication Summary Completed 05/11/2010 Appointment: Belia Reidtel: [address] [place] [address] 05/04/2010 Patient Education: Patient Medication Summary Completed 05/04/2010 Visit Plan: Pt sent to lab for UA 04/28/2010 Appointment: Belia Reid WPtel: [address] [place] [address] 04/28/2010 Patient Education: Patient Medication Summary Completed 04/28/2010 Visit Plan: Check CT angiogram of chest Restart Advair Use proair prn Cont current meds Fwup with Card as schedulec 04/06/2010 Appointment: Belia Reidtel: [address] [place] [address] Hospital Follow Up 04/06/2010 Patient Education: Patient Medication Summary Completed 04/06/2010 Visit Plan: Paperwork filled out for pow erchair Depomedrol/kenalog given Pt sees ENT in 2wks to assess nasal obstruction problems 02/09/2010 Appointment: Belia Reidtel: [address] [place] [address] ESTABLISHED PATIENT 02/09/2010 Patient Education: Patient Medication Summary Completed 02/09/2010 Visit Plan: Change Elavil to Trazadone 1 50mg q HS Diflucan and nystatin for tinea cruris 01/05/2010 Appointment: Belia Reidtel: [address] [place] [address] FOLLOW UP 01/05/2010 Patient Education: Patient Medication Summary Completed 01/05/2010 Appointment: Belia Reidtel: [address] [place], [place] [id number] FOLLOW UP 12/07/2009 Patient Education: Patient Medication Summary Completed 12/07/2009 Appointment: Belia Reid WPtel: [address] [place], [place] [id number] FOLLOW UP 11/22/2009 Visit Plan: Cont current meds and await MRI results from Dr. Meadows's office and his final recommendations Will need to follow-up at later date on deviated septum 11/08/2009 Appointment: Belia Reid WPtel: [address] [place] [address] FOLLOW UP 11/08/2009 Patient Education: Patient Medication Summary Completed 11/08/2009 Visit Plan: Cont PT/OT See Neurosurgery Cont Tortoise shell brace 10/24/2009 Appointment: Belia Reid WPtel: [address] [place] [address] FOLLOW UP 10/24/2009 Patient Education: Patient Medication Summary Completed 10/24/2009 Appointment: Belia Reid WPtel: [address] [place] [address] Follow Up 10/17/2009 Appointment: Belia Reid WPtel: [address] [place] [address] ACUTE ILLNESS 07/25/2009 Patient Education: Patient Medication Summary Completed 07/25/2009 Appointment: Belia Reid WPtel: [address] [place] [address] FOLLOW UP 05/26/2009 Patient Education: Patient Medication Summary Completed 05/26/2009 Referral: Chino Balderas WPtel: [phone] [facility] Referral Initiated Referral: Merry Vale WPtel: [facility] [id number] [address] Vale will review referral and book appointment Completed Referral: Francisco Javier Yoder WPtel: [address] [id number] [place] Patient needs EGD insurance will not inc rease a medication unless this procedure results show a need Completed Referral: Francisco Javier Yoder WPtel: [address] [id number] [place] Referral Historical Reference Referral: Francisco Javier Yoder WPtel: [address] [id number] [place] Referral Initiated Instructions Comment . Xrays [...] last date of carotid doppler from her financial sales advisor and update if needed . Long discussion [...] daily Notify if worsens or persists . ИВАН Neurontin--discussed that this may be causing some [...]
--- OUTSIDE RECORDS SUMMARY | 2019-06-23 18:06 | XMS REPORT | CCD ---
Author Author Diana Reid D.O. 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 Name Role Phone Belia Reid D.O., PP Unavailable CCM Unavailable Summary Purpose Interface Exchange Insurance Providers Payer name Policy type / Coverage type Covered constitution party ID Effective Begin Date Effective End Date [employer] MEDICARE Medicare Part B [id number] 2019 Unknown Family History Family History data not found Social History Social History Element Codes Description Effective Dates Tobacco history SNOMED CT: 164360826 Nonsmoker 09/13/2010 Allergies, Adverse Reactions, Alerts Substance Reaction Codes Entered Date Inactivated Date Status Eggs reaction [id number] 09/15/2015 No Inactive Date Active _ Unknown [...] Fill Instructions Singulair 10 mg tablet RxNorm: 621649 1 Tablet(s) Oral QPM 05/06/19 20 06/05/2019 Active gabapentin 600 mg tablet RxNorm: 274872 1 Tablet(s) Oral QD 020 06/05/2019 Active Valium 5 mg tablet RxNorm: 415015 1 Tablet(s) Oral QPM for stri joao/muscle spasm 04/29/2019 05/29/2019 Active baclofen 10 mg tablet RxNorm: 790739 1 Tablet(s) Oral QPM for s pasm/neck pain 04/24/2019 05/23/2019 Active baclofen 10 mg tablet RxNorm: 590586 1 Tablet(s) Oral QPM for s pasm/neck pain 04/24/2019 04/23/2019 Inactive Novolin N NPH U-100 Insulin isophane 100 unit/mL subcu taneous susp RxNorm: 460970 23 Unit(s) Subcutaneous two times a day 04/20/2019 No Stop Date A ctive cyclobenzaprine 5 mg tablet RxNorm: 374158 1 Tablet(s) Oral three times a day as needed 04/16/2019 04/23/2019 Inactive hydroxyzine HCl 25 mg tablet RxNorm: 658485 1 Tablet(s) Oral three times a day for itching/aniety 04/08/2019 06/07/2019 Active gabapentin 600 mg tablet RxNorm: 310293 1 Tablet(s) Oral two ti mes a day 04/08/2019 05/05/2019 Inactive gabapentin 600 mg tablet RxNorm: 818364 1 Tablet(s) Oral two ti mes a day 04/08/2019 04/07/2019 Inactive Novolin N NPH U-100 Insulin isophane 100 unit/mL subcu taneous susp RxNorm: 242642 10 Unit(s) Subcutaneous two times a day 03/03/2019 04/19/2019 I nactive gabapentin 300 mg capsule RxNorm: 300881 1 Capsule(s) O ral every night at bedtime for neuropathy 02/26/2019 04/07/2019 Inactive gabapentin 300 mg capsule RxNorm: 936454 1 Capsule(s) O ral every night at bedtime for neuropathy 02/20/2019 02/25/2019 Inactive buspirone 5 mg tablet RxNorm: 978364 TAKE 1 TABLET THREE TIMES MILDRED Y 02/12/2019 No Stop Date Active pramipexole 1 mg tablet RxNorm: 466531 1 Tablet(s) Oral QPM FOR RESTLESS LEGS (REPLACES REQUIP) 02/12/2019 02/07/2020 Active Lexapro 10 mg tablet RxNorm: 597906 TAKE 1 TABLET EVERY DAY FOR MOO D 01/31/2019 No Stop Date Active Ativan 0.5 mg tablet RxNorm: 954912 TAKE 1 TABLET BY MO UT THREE TIMES DAILY NEEDED FOR ANXIETY 01/26/2019 04/28/2019 Inactive Ativan 0.5 mg tablet RxNorm: 974611 TAKE 1 TABLET BY MO UT THREE TIMES DAILY NEEDED FOR ANXIETY 01/05/2019 01/05/2019 Inactive Levaquin 500 mg tablet RxNorm: 210840 1 Tablet(s) Oral QD 12/25/2018 12/24/2018 Inactive Levaquin 500 mg tablet RxNorm: 664482 1 Tablet(s) Oral QD 12/25/2018 01/04/2019 Inactive baclofen 10 mg tablet RxNorm: 869168 1 Tablet(s) Oral three maico es a day 11/20/2018 01/19/2019 Inactive Ativan 0.5 mg tablet RxNorm: 137713 TAKE 1 TABLET BY [facility] THREE TIMES DAILY NEEDED FOR ANXIETY 11/20/2018 01/04/2019 Inactive gabapentin 300 mg capsule RxNorm: 229408 1 Capsule(s) O ral every night at bedtime for neuropathy 11/20/2018 12/20/2018 Inactive Lexapro 10 mg tablet RxNorm: 071869 1 Tablet(s) PO QD for mood 07/201801/30/2019 Inactive Zithromax Z-Lj 250 mg tablet RxNorm: 780204 Tablet(s) PO take as directed 11/04/2018 11/19/2018 Inactive Insulin Syringe 1 mL 29 gauge x 1/2" RxNorm: 2 s yringes daily with insulin Dx: E11.65 10/08/2018 No Stop Date Active gabapentin 300 mg capsule RxNorm: 894207 1 Capsule(s) PO QHS fo r neuropathy 09/18/2018 10/17/2018 Inactive cyclobenzaprine 5 mg tablet RxNorm: 112027 1 Tablet(s) PO TID a s needed 09/09/2018 09/08/2018 Inactive cyclobenzaprine 5 mg tablet RxNorm: 290715 1 Tablet(s) PO TID a s needed 09/09/2018 10/08/2018 Inactive prednisone 20 mg tablet RxNorm: 792892 1 Tablet(s) PO QD 09/08/2018 0 09/12/2018 Inactive Lantus Solostar U-100 Insulin 100 unit/mL (3 mL) subcu taneous pen RxNorm: 445312 55 Unit(s) SQ QAM 08/28/2018 11/03/2018 Inactive hydroxyzine HCl 25 mg tablet RxNorm: 412606 1 Tablet(s) PO QHS for itching 08/20/2018 10/18/2018 Inactive Lexapro 10 mg tablet RxNorm: 528960 1 Tablet(s) PO QD for mood 08/0210/18/2018 Inactive sumatriptan 100 mg tablet RxNorm: 994954 1 Tablet(s) PO at headache onset. May repeat 1 in two hours if headache remains. Max of 2 per 24 hours 04/02/2018 05/20/2018 Inactive Diflucan 150 mg tablet RxNorm: 198724 1 Tablet(s) PO QD 03/18/2018 Inactive Diflucan 150 mg tablet RxNorm: 026618 1 Tablet(s) PO QD 03/18/2018 Inactive Flagyl 500 mg tablet RxNorm: 186495 1 Tablet(s) PO TID 03/17/2018 Inactive Levaquin 500 mg tablet RxNorm: 925536 1 Tablet(s) PO QD 03/17/2018 Inactive Levaquin 500 mg tablet RxNorm: 457329 1 Tablet(s) PO QD 03/17/2018 Inactive Flagyl 500 mg tablet RxNorm: 247266 1 Tablet(s) PO TID 03/17/2018 Inactive ketoconazole 200 mg tablet RxNorm: 050418 1 Tablet(s) PO QD 019 03/19/2018 Inactive Celebrex 200 mg capsule RxNorm: 474673 1 Capsule(s) PO BID 02/06/20 18 05/20/2018 Inactive tramadol 50 mg tablet RxNorm: 286855 1 Tablet(s) PO TID as needed 1 04/08/2017 05/20/2018 Inactive gabapentin 300 mg capsule RxNorm: 959856 1 Capsule(s) PO BID 201705/20/2018 Inactive Diflucan 150 mg tablet RxNorm: 394143 1 Tablet(s) PO QD 01/20/2018 Inactive pramipexole 1 mg tablet RxNorm: 968805 1 Tablet(s) PO Q PM FOR RESTLESS LEGS (REPLACES REQUIP) 01/08/2018 02/11/2019 Inactive cyclobenzaprine 10 mg tablet RxNorm: 648624 1 Tablet(s) PO TID as needed for muscle spasm 12/17/2017 05/20/2018 Inactive pramipexole 1 mg tablet RxNorm: 187168 TAKE 1 TABLET BY MOUTH ONCE DAILY IN THE EVENING FOR RESTLESS LEGS (REPLACES REQUIP) 12/04/2017 01/05/2018 Inac tive Amaryl 4 mg tablet RxNorm: 621427 1 Tablet(s) PO BID replaces 2mg 0 11/05/2017 12/16/2017 Inactive Singulair 10 mg tablet RxNorm: 610145 1 Tablet(s) PO QHS for al lergies/lungs 10/30/2017 12/16/2017 Inactive Diflucan 100 mg tablet RxNorm: 123860 1 Tablet(s) PO QD 10/23/2017 Inactive Ativan 0.5 mg tablet RxNorm: 918500 TAKE 1 TABLET BY MOUTH THRE E TIMES DAILY 08/30/2017 11/20/2018 Inactive buspirone 5 mg tablet RxNorm: 036290 1 Tablet(s) PO TID 07/11/2017 Inactive propranolol 60 mg tablet RxNorm: 366642 1 Tablet(s) PO BID repl aces 40mg dose 06/26/2017 12/16/2017 Inactive Amaryl 4 mg tablet RxNorm: 302198 1 Tablet(s) PO BID replaces 2mg 0 06/12/2017 11/05/2017 Inactive omeprazole 40 mg capsule,delayed release RxNorm: 670266 1 Capsule(s) PO BID TAKE ONE CAPSULE BY MOUTH TWICE DAILY 05/30/2017 11/25/2017 Inactive pramipexole 1 mg tablet RxNorm: 255915 1 Tablet(s) PO Q PM for restless legs--replaces requip 05/30/2017 11/25/2017 Inactive amitriptyline 50 mg tablet RxNorm: 382028 1 Tablet(s) PO QHS 201709/16/2017 Inactive Diflucan 100 mg tablet RxNorm: 839836 1 Tablet(s) PO BID 05/07/2017 0 05/20/2017 Inactive nystatin (bulk) 100 million unit powder RxNorm: Application TO P BID 05/07/2017 05/20/2018 Inactive cholestyramine (with sugar) 4 gram oral powder RxNorm: 609623 1 Unit Dose PO QD 05/07/2017 01/20/2018 Inactive Ativan 0.5 mg tablet RxNorm: 547035 TAKE ONE TABLET BY MOUTH TH REE TIMES DAILY 05/01/2017 09/02/2017 Inactive Trulicity 1.5 mg/0.5 mL subcutaneous pen injector RxNorm: 15 62172 1 Unit Dose SQ WEEKLY 02/22/2017 03/23/2017 Inactive doxycycline hyclate 100 mg capsule RxNorm: 1051082 1 Capsule(s) PO BID 01/23/2017 02/05/2017 Inactive Amaryl 4 mg tablet RxNorm: 744384 1 Tablet(s) PO BID replaces 2mg 1 03/25/2016 05/22/2017 Inactive magnesium oxide 400 mg capsule RxNorm: 797929 1 Capsule(s) PO QD 07/18/2017 Inactive Ativan 0.5 mg tablet RxNorm: 041768 TAKE ONE TABLET BY MOUTH TH REE TIMES DAILY 01/17/2017 05/01/2017 Inactive Amaryl 2 mg tablet RxNorm: 398395 1 Tablet(s) PO BID 12/27/201601/22 Inactive Amaryl 2 mg tablet RxNorm: 383945 1 Tablet(s) PO BID 12/26/201612/26 Inactive Ativan 0.5 mg tablet RxNorm: 411516 TAKE ONE TABLET BY MOUTH TH REE TIMES DAILY 12/05/2016 01/18/2017 Inactive pramipexole 1 mg tablet RxNorm: 420614 1 Tablet(s) PO Q PM for restless legs--replaces requip 11/26/2016 05/30/2017 Inactive Mobic 15 mg tablet RxNorm: 475152 1 Tablet(s) PO QD 10/08/20162016 Inactive cyclobenzaprine 5 mg tablet RxNorm: 239722 1/2- 1 Tablet(s) PO TID 10/08/2016 10/17/2016 Inactive Ativan 0.5 mg tablet RxNorm: 811755 1 Tablet(s) PO TID 09/20/201607/2016 Inactive amitriptyline 50 mg tablet RxNorm: 690966 1 Tablet(s) PO QHS 201605/30/2017 Inactive propranolol 60 mg tablet RxNorm: 235868 1 Tablet(s) PO BID repl aces 40mg dose 09/19/2016 06/26/2017 Inactive Ativan 0.5 mg tablet RxNorm: 258059 1 Tablet(s) PO TID 08/20/2016 Inactive omeprazole 40 mg capsule,delayed release RxNorm: 769725 1 Capsule(s) PO BID TAKE ONE CAPSULE BY MOUTH TWICE DAILY 08/20/2016 05/30/2017 Inactive amitriptyline 50 mg tablet RxNorm: 717891 1 Tablet(s) PO QHS 201609/18/2016 Inactive pramipexole 1 mg tablet RxNorm: 305490 1 Tablet(s) PO Q PM for restless legs--replaces requip 07/23/2016 11/25/2016 Inactive Amaryl 2 mg tablet RxNorm: 192146 1 Tablet(s) PO BID 07/23/201612/27 Inactive propranolol 40 mg tablet RxNorm: 276655 1 Tablet(s) PO BID 07/13/19 17 09/18/2016 Inactive Ativan 0.5 mg tablet RxNorm: 314678 1 Tablet(s) PO QID 06/19/2016 Inactive Amaryl 2 mg tablet RxNorm: 502281 1 Tablet(s) PO BID 06/19/201607/22 Inactive Ativan 0.5 mg tablet RxNorm: 291800 1 Tablet(s) PO QID 06/19/2016 Inactive buspirone 5 mg tablet RxNorm: 237847 1 Tablet(s) PO TID 06/19/2016 Inactive Ativan 0.5 mg tablet RxNorm: 328407 1 Tablet(s) PO BID 05/24/2016 Inactive buspirone 5 mg tablet RxNorm: 949833 1 Tablet(s) PO TID 05/23/2016 Inactive Macrobid 100 mg capsule RxNorm: 551361 1 Capsule(s) PO QOD 05/03/19 17 10/07/2016 Inactive pramipexole 1 mg tablet RxNorm: 758593 Tablet(s) 1 Tabl et(s) PO QPM for restless legs--replaces requip 04/26/2016 06/24/2016 Inactive propranolol 40 mg tablet RxNorm: 032953 TAKE ONE TABLET BY MOUT H TWICE DAILY 04/26/2016 06/24/2016 Inactive Detrol LA 4 mg capsule,extended release RxNorm: 745203 1 Capsul e(s) PO QHS 04/03/2016 05/02/2016 Inactive prednisone 20 mg tablet RxNorm: 841067 1 Tablet(s) PO QD 02/29/2016 0 03/04/2016 Inactive Actos 30 mg tablet RxNorm: 306466 TAKE ONE TABLET BY MOUTH ONCE DAILY 02/27/2016 12/19/2016 Inactive clindamycin 300 mg capsule RxNorm: 680234 1 Capsule(s) PO TID 02/0102/08/2016 Inactive Flagyl 500 mg tablet RxNorm: 678843 1 Tablet(s) PO BID 02/02/201609/2015 Inactive omeprazole 40 mg capsule,delayed release RxNorm: 694254 TAKE ONE CAPSULE BY MOUTH TWICE DAILY 01/15/2016 07/12/2016 Inactive gabapentin 300 mg capsule RxNorm: 844607 1 Capsule(s) PO QAM an d 2 po q HS 01/05/2016 06/18/2016 Inactive gabapentin 300 mg capsule RxNorm: 323920 1 Capsule(s) P O BID 1 Capsule(s) PO QHS 12/05/2015 01/04/2016 Inactive cyclobenzaprine 10 mg tablet RxNorm: 858038 1 Tablet(s) PO TID for spasm as needed for muscle spasm 12/05/2015 06/18/2016 Inactive ciprofloxacin 250 mg tablet RxNorm: 985180 1 Tablet(s) PO BID 12/0412/14/2015 Inactive pramipexole 1 mg tablet RxNorm: 611695 Tablet(s) 1 Tabl et(s) PO QPM for restless legs--replaces requip 11/07/2015 11/26/2016 Inactive Januvia 100 mg tablet RxNorm: 438404 1 Tablet(s) PO QD 10/26/201504/2015 Inactive propranolol 40 mg tablet RxNorm: 955944 TAKE ONE TABLET BY MOUT H TWICE DAILY 10/25/2015 04/21/2016 Inactive gabapentin 300 mg capsule RxNorm: 378970 1 Capsule(s) PO QHS 201512/04/2015 Inactive Cipro 500 mg tablet RxNorm: 778171 1 Tablet(s) PO BID 10/05/201511/2015 Inactive pramipexole 1 mg tablet RxNorm: 126695 Tablet(s) 1 Tabl et(s) PO QPM for restless legs--replaces requip 10/04/2015 11/02/2015 Inactive propranolol 40 mg tablet RxNorm: 790658 TAKE ONE TABLET BY MOUT H TWICE DAILY 09/26/2015 10/24/2015 Inactive Amaryl 2 mg tablet RxNorm: 811926 1 Tablet(s) PO QD 09/15/20152016 Inactive gabapentin 300 mg capsule RxNorm: 113575 1 Capsule(s) PO QHS 201510/14/2015 Inactive buspirone 5 mg tablet RxNorm: 677859 1 Tablet(s) PO TID 09/15/2015 Inactive pramipexole 1 mg tablet RxNorm: 037723 Tablet(s) 1 Tabl et(s) PO QPM for restless legs--replaces requip 09/08/2015 10/03/2015 Inactive pramipexole 1 mg tablet RxNorm: 283786 1 Tablet(s) PO Q PM for restless legs--replaces requip 08/08/2015 09/08/2015 Inactive Amaryl 2 mg tablet RxNorm: 082502 1 Tablet(s) PO QD 07/07/20152015 Inactive pramipexole 1 mg tablet RxNorm: 937442 1 Tablet(s) PO Q PM for restless legs--replaces requip 07/05/2015 08/03/2015 Inactive ropinirole 2 mg tablet RxNorm: 081611 TAKE ONE TABLET BY MOUTH TWICE DAILY 05/09/2015 09/14/2015 Inactive Diflucan 100 mg tablet RxNorm: 709255 1 Tablet(s) PO QD 03/30/2015 Inactive propranolol 40 mg tablet RxNorm: 155578 1 Tablet(s) PO BID 02/24/20 15 08/21/2015 Inactive [SAVINGS FOR UNINSURED PATIE NTS -- BIN:308226, PCN: ASPROD1, Group: AME08, ID# [id number], Process claim through [employer], for questions: . THIS IS NOT INSURANCE.] Flagyl 500 mg tablet RxNorm: 139202 1 Tablet(s) PO BID 02/03/201502/2015 Inactive Cipro 500 mg tablet RxNorm: 293402 1 Tablet(s) PO BID 02/03/201502/01 Inactive Carafate 1 gram tablet RxNorm: 167223 1 Tablet(s) PO QID make i nto slurry 02/03/2015 09/14/2015 Inactive ondansetron HCl 4 mg tablet RxNorm: 966312 1 Tablet(s) PO Q4H as needed for nausea 12/29/2014 01/04/2016 Inactive Diflucan 100 mg tablet RxNorm: 268962 1 Tablet(s) PO QD 12/29/2014 Inactive Keflex 500 mg capsule RxNorm: 237759 1 Capsule(s) PO TID 12/29/2014 1 03/09/2014 Inactive omeprazole 40 mg capsule,delayed release RxNorm: 002757 1 Capsu le(s) PO BID 12/27/2014 12/21/2015 Inactive [SAVINGS FOR UNINSUR ED PATIENTS -- BIN:020564, PCN: ASPROD1, Group: AME08, ID# [id number], Process claim through [employer], for questions: . THIS IS NOT INSURANCE.] ropinirole 2 mg tablet RxNorm: 285257 1 Tablet(s) PO BID 09/29/2014 0 03/27/2015 Inactive [SAVINGS FOR UNINSURED PATIENTS -- BIN:0 51900, PCN: ASPROD1, Group: AME08, ID# [id number], Process claim through [employer], for questions: . THIS IS NOT INSURANCE.] buspirone 5 mg tablet RxNorm: 857688 1 Tablet(s) PO TID 09/17/2014 Inactive ropinirole 2 mg tablet RxNorm: 706495 1 Tablet(s) PO BID 09/02/2014 0 09/28/2014 Inactive [SAVINGS FOR UNINSURED PATIENTS -- BIN:0 18256, PCN: ASPROD1, Group: AME08, ID# [id number], Process claim through [employer], for questions: . THIS IS NOT INSURANCE.] Zyrtec 10 mg tablet RxNorm: 7959739 1 Tablet(s) PO QD 09/02/201412/02 Inactive propranolol 40 mg tablet RxNorm: 529883 1 Tablet(s) PO BID 07/21/19 15 02/23/2015 Inactive [SAVINGS FOR UNINSURED PATIE NTS -- BIN:457861, PCN: ASPROD1, Group: AME08, ID# [id number], Process claim through [employer], for questions: . THIS IS NOT INSURANCE.] ropinirole 2 mg tablet RxNorm: 667627 1 Tablet(s) PO QHS 05/14/2014 0 09/01/2014 Inactive [SAVINGS FOR UNINSURED PATIENTS -- BIN:0 99595, PCN: ASPROD1, Group: AME08, ID# [id number], Process claim through [employer], for questions: . THIS IS NOT INSURANCE.] cyclobenzaprine 10 mg tablet RxNorm: 750805 1 Tablet(s) PO QHS for spasm 04/06/2014 09/01/2014 Inactive ipratropium-albuterol 0.5 mg-3 mg(2.5 mg base)/3 mL ne bulization soln RxNorm: 4154395 1 Unit Dose INH Q4H 03/16/2014 No Stop Date Active [SAVINGS FOR UNINSURED PATIENTS -- BIN:115810, PCN: ASPROD1, Group: AME08, ID# [id number], Process claim through [employer], for questions: . THIS IS NOT INSURANCE.] prednisone 20 mg tablet RxNorm: 725336 1 Tablet(s) PO BID 03/09/2014 03/15/2014 Inactive [SAVINGS FOR UNINSURED PATIENTS -- BIN:0 94576, PCN: ASPROD1, Group: AME08, ID# [id number], Process claim through [employer], for questions: . THIS IS NOT INSURANCE.] ipratropium-albuterol 0.5 mg-3 mg(2.5 mg base)/3 mL ne bulization soln RxNorm: 2602481 1 Unit Dose INH Q4H 03/09/2014 03/15/2014 Inactive [SAVINGS FOR UNINSURED PATIENTS -- BIN:094203, PCN: ASPROD1, Group: AME08, ID# [id number], Process claim through [employer], for questions: . THIS IS NOT INSURANCE.] Levaquin 500 mg tablet RxNorm: 511431 1 Tablet(s) PO QD 03/09/2014 Inactive [SAVINGS FOR UNINSURED PATIENTS -- BIN:0 94258, PCN: ASPROD1, Group: AME08, ID# [id number], Process claim through [employer], for questions: . THIS IS NOT INSURANCE.] Carafate 1 gram tablet RxNorm: 194939 1 Tablet(s) PO AC & HS ma ke into slurry 02/09/2014 09/01/2014 Inactive [SAVINGS FOR UNINSUR ED PATIENTS -- BIN:645839, PCN: ASPROD1, Group: AME08, ID# [id number], Process claim through [employer], for questions: . THIS IS NOT INSURANCE.] Fioricet 50 mg-300 mg-40 mg capsule RxNorm: 2592623 1-2 Capsule(s) PO Q4H as needed for headache --max of 6 a day 02/09/2014 09/01/2014 Inactive [SAVINGS FOR UNINSURED PATIENTS -- BIN:664134, PCN: ASPROD1, Group: AME08, ID# [id number], Process claim through [employer], for questions: . THIS IS NOT INSURANCE.] propranolol 40 mg tablet RxNorm: 809005 1 Tablet(s) PO BID 12/08/19 14 06/04/2014 Inactive [SAVINGS FOR UNINSURED PATIE NTS -- BIN:580365, PCN: ASPROD1, Group: AME08, ID# [id number], Process claim through [employer], for questions: . THIS IS NOT INSURANCE.] buspirone 5 mg tablet RxNorm: 789591 1 Tablet(s) PO TID 12/02/2013 Inactive omeprazole 40 mg capsule,delayed release RxNorm: 075440 1 Capsu le(s) PO BID 11/25/2013 11/19/2014 Inactive [SAVINGS FOR UNINSUR ED PATIENTS -- BIN:996993, PCN: ASPROD1, Group: AME08, ID# [id number], Process claim through [employer], for questions: . THIS IS NOT INSURANCE.] ropinirole 2 mg tablet RxNorm: 346081 1 Tablet(s) PO QHS 11/10/2013 0 05/08/2014 Inactive [SAVINGS FOR UNINSURED PATIENTS -- BIN:0 64289, PCN: ASPROD1, Group: AME08, ID# [id number], Process claim through [employer], for questions: . THIS IS NOT INSURANCE.] Cipro 500 mg tablet RxNorm: 835897 1 Tablet(s) PO BID 10/21/201312/03 Inactive [SAVINGS FOR UNINSURED PATIENTS -- BIN:0 16461, PCN: ASPROD1, Group: AME08, ID# [id number], Process claim through [employer], for questions: . THIS IS NOT INSURANCE.] hydroxyzine HCl 25 mg tablet RxNorm: 338298 1 Tablet(s) PO Q4-6 H as needed 10/05/2013 01/04/2016 Inactive [SAVINGS FOR UNINSUR ED PATIENTS -- BIN:412679, PCN: ASPROD1, Group: AME08, ID# [id number], Process claim through [employer], for questions: . THIS IS NOT INSURANCE.] triamcinolone acetonide 0.1 % topical cream RxNorm: 9021011 Appl ication TOP BID 10/05/2013 09/01/2014 Inactive [SAVINGS FOR UNINSUR ED PATIENTS -- BIN:228667, PCN: ASPROD1, Group: AME08, ID# [id number], Process claim through [employer], for questions: . THIS IS NOT INSURANCE.] albuterol sulfate HFA 90 mcg/actuation aerosol inhaler RxNor m: 6740931 2 Puff(s) INH Q4H as needed for cough 10/01/2013 12/22/2013 Inactive [MAKSIM INGS FOR UNINSURED PATIENTS -- BIN:046326, PCN: ASPROD1, Group: AME08, ID# [id number], Process claim through [employer], for questions: . THIS IS NOT INSURANCE.] propranolol 40 mg tablet RxNorm: 239835 1 Tablet(s) PO BID 09/02/19 14 11/29/2013 Inactive [SAVINGS FOR UNINSURED PATIE NTS -- BIN:071816, PCN: ASPROD1, Group: AME08, ID# [id number], Process claim through [employer], for questions: . THIS IS NOT INSURANCE.] propranolol 40 mg tablet RxNorm: 259474 1 Tablet(s) PO BID 08/05/19 14 08/31/2013 Inactive [SAVINGS FOR UNINSURED PATIE NTS -- BIN:263058, PCN: ASPROD1, Group: AME08, ID# [id number], Process claim through [employer], for questions: . THIS IS NOT INSURANCE.] Toprol XL 50 mg tablet,extended release RxNorm: 070002 1 Tablet (s) PO QHS 07/23/2013 08/03/2013 Inactive Macrobid 100 mg capsule RxNorm: 608246 1 Capsule(s) PO BID 07/04/19 14 07/09/2013 Inactive Toprol XL 50 mg tablet,extended release RxNorm: 002500 1 Tablet (s) PO QHS 05/28/2013 06/26/2013 Inactive ciprofloxacin 500 mg tablet RxNorm: 046716 1 Tablet(s) PO BID 05/2706/02/2013 Inactive Bystolic 5 mg tablet RxNorm: 968981 1 Tablet(s) PO QD 05/27/201305/03 Inactive ropinirole 2 mg tablet RxNorm: 434737 1 Tablet(s) PO QHS 04/22/2013 0 11/09/2013 Inactive Cipro 250 mg tablet RxNorm: 885902 1 Tablet(s) PO BID 04/06/201311/2013 Inactive ropinirole 2 mg tablet RxNorm: 913901 1 Tablet(s) PO QHS 02/17/2013 0 04/21/2013 Inactive Amaryl 2 mg tablet RxNorm: 451854 1 Tablet(s) PO QAM 11/11/201211/10 Inactive Amaryl 2 mg tablet RxNorm: 419424 1 Tablet(s) PO QAM 11/11/201204/05 Inactive omeprazole 40 mg capsule,delayed release RxNorm: 238069 1 Capsu le(s) PO BID 08/14/2012 08/08/2013 Inactive Bystolic 5 mg tablet RxNorm: 912012 1 Tablet(s) PO QD 08/14/201205/03 Inactive propranolol 60 mg tablet RxNorm: 557510 Tablet(s) PO TAKE 1 TAB LET TWICE DAILY 08/01/2012 09/01/2012 Inactive Bystolic 5 mg tablet RxNorm: 373993 1 Tablet(s) PO QD 07/21/201207/02 Inactive Bystolic 5 mg tablet RxNorm: 131175 1 Tablet(s) PO QD 07/21/201207/03 Inactive Prilosec 40 mg capsule,delayed release RxNorm: 162777 1 Capsule (s) PO BID 06/24/2012 07/21/2012 Inactive buspirone 10 mg tablet RxNorm: 343305 1 Tablet(s) PO TID 05/08/2012 0 05/23/2016 Inactive Valium 10 mg tablet RxNorm: 273077 1 Tablet(s) PO BID 04/02/201207/03 Inactive Endocet 10 mg-325 mg tablet RxNorm: 3584453 1 Tablet(s) PO QID 03/0607/21/2012 Inactive as needed for severe pain Valium 10 mg tablet RxNorm: 751702 1 Tablet(s) PO BID 02/27/2012 No S top Date Active Endocet 10 mg-325 mg tablet RxNorm: 5498209 1 Tablet(s) PO QID 02/0203/27/2012 Inactive as needed for severe pain Endocet 10 mg-325 mg tablet RxNorm: 7592619 1 Tablet(s) PO QID 01/0302/26/2012 Inactive as needed for severe pain Valium 10 mg tablet RxNorm: 435232 1 Tablet(s) PO BID 01/29/2012 No S top Date Active Protonix 40 mg tablet,delayed release RxNorm: 382326 1 Tablet(s ) PO QD 01/28/2012 07/21/2012 Inactive metformin ER 500 mg tablet,extended release 24 hr RxNorm: 86 0977 1 Tablet(s) PO QD 12/26/2011 07/20/2012 Inactive Trazadone 150 mg Tablet RxNorm: 1 Tablet(s) PO QHS prn sleep 1 04/23/2012 Inactive Endocet 10 mg-325 mg tablet RxNorm: 9286748 1 Tablet(s) PO QID 12/0301/24/2012 Inactive as needed for severe pain Nexium 40 mg capsule,delayed release RxNorm: 721817 1 Capsule(s ) PO QD 12/26/2011 01/27/2012 Inactive Symbicort 160 mcg-4.5 mcg/actuation HFA Aerosol Inhaler RxNo rm: 8742224 2 Puff(s) INH BID 12/04/2011 07/21/2012 Inactive Endocet 10 mg-325 mg tablet RxNorm: 6589514 1 Tablet(s) PO QID 11/0312/25/2011 Inactive as needed for severe pain metformin ER 500 mg tablet,extended release 24 hr RxNorm: 86 0977 1 Tablet(s) PO QD 11/20/2011 12/19/2011 Inactive metformin ER 500 mg tablet,extended release 24 hr RxNorm: 86 0977 1 Tablet(s) PO QD 11/20/2011 11/19/2011 Inactive amitriptyline 100 mg tablet RxNorm: 612672 Tablet(s) PO QHS 1 a nd 1/2 tabs QHS 11/12/2011 11/13/2011 Inactive Valium 10 mg tablet RxNorm: 179935 1 Tablet(s) PO BID 11/09/2011 No S top Date Active Endocet 10 mg-325 mg tablet RxNorm: 2684501 1 Tablet(s) PO QID 10/0211/14/2011 Inactive as needed for severe pain Aricept 10 mg Tab RxNorm: 020505 1 Tablet(s) PO QD 10/05/2011 013 Inactive Valium 10 mg tablet RxNorm: 321111 1 Tablet(s) PO BID 10/05/2011 No S top Date Active Endocet 10 mg-325 mg Tab RxNorm: 8971746 1 Tablet(s) PO QID 012 10/09/2011 Inactive as needed for severe pain Aricept 10 mg Tab RxNorm: 499789 1 Tablet(s) PO QD 08/14/2011 012 Inactive Endocet 10 mg-325 mg Tab RxNorm: 8490189 1 Tablet(s) PO QID 012 08/31/2011 Inactive as needed for severe pain Valium 10 mg Tab RxNorm: 746186 1 Tablet(s) PO BID 08/02/2011 No Stop Date Active propranolol 60 mg tablet RxNorm: 864389 1 Tablet(s) PO BID 07/26/19 12 09/11/2011 Inactive amitriptyline 100 mg tablet RxNorm: 401467 Tablet(s) PO QHS 1 a nd 2 tabs QHS 06/20/2011 09/11/2011 Inactive buspirone 10 mg tablet RxNorm: 356152 1 Tablet(s) PO BID 06/18/2011 0 09/15/2011 Inactive propranolol 60 mg Tab RxNorm: 375981 1 Tablet(s) PO BID 06/18/2011 Inactive gabapentin 800 mg Tab RxNorm: 672561 1 Tablet(s) PO BID 06/18/2011 Inactive ropinirole 2 mg tablet RxNorm: 536223 1 Tablet(s) PO QHS 05/29/2011 0 08/26/2011 Inactive trimethoprim 100 mg Tab RxNorm: 793547 1 Tablet(s) PO QHS 05/29/2011 07/21/2012 Inactive Endocet 10 mg-325 mg Tab RxNorm: 7130850 1 Tablet(s) PO QID 012 2011 Inactive as needed for severe pain Valium 10 mg Tab RxNorm: 291161 1 Tablet(s) PO QHS N eed to take med as prescribed. this is a 40 day RX. No early fills. 05/17/2011 05/20/2018 Inactive propranolol 60 mg Tab RxNorm: 562153 1 Tablet(s) PO BID 04/16/2011 Inactive Neurontin 800 mg Tab RxNorm: 052552 1 Tablet(s) PO QHS 04/05/201103/2011 Inactive Endocet 10 mg-325 mg Tab RxNorm: 2883722 1 Tablet(s) PO QID 012 05/02/2011 Inactive as needed for severe pain oxycodone-acetaminophen 10 mg-325 mg tablet RxNorm: 7437418 1 Ta blet(s) PO Q4H 03/28/2011 05/19/2012 Inactive Valium 10 mg Tab RxNorm: 919511 1 Tablet(s) PO QHS 03/28/2011 012 Inactive buspirone 10 mg Tab RxNorm: 779584 1 Tablet(s) PO BID 03/27/201106/02 Inactive propranolol 60 mg Tab RxNorm: 612492 1 Tablet(s) PO BID 03/19/2011 Inactive Klor-Con M20 20 mEq Tab RxNorm: 5307990 1 Tablet(s) PO QD 03/19/2011 07/21/2012 Inactive Aricept 10 mg Tab RxNorm: 388879 1 Tablet(s) PO QD 02/27/2011 012 Inactive propranolol 60 mg Tab RxNorm: 660501 1 Tablet(s) PO BID 02/19/2011 Inactive omeprazole 40 mg capsule,delayed release RxNorm: 817878 1 Capsu le(s) PO BID 01/24/2011 05/23/2011 Inactive clindamycin 300 mg capsule RxNorm: 680150 1 Capsule(s) PO TID 01/2402/02/2011 Inactive propranolol 60 mg Tab RxNorm: 379539 1 Tablet(s) PO BID 01/22/2011 No Stop Date Active nystatin 100,000 unit/g Topical Cream RxNorm: 055219 Applicatio n TOP BID 01/15/2011 01/14/2011 Inactive to rash for 2-4 week s Diflucan 200 mg Tab RxNorm: 734418 1 Tablet(s) PO QD 01/15/201101/28 Inactive buspirone 10 mg Tab RxNorm: 550291 1 Tablet(s) PO BID 01/08/201103/05 Inactive Valium 10 mg Tab RxNorm: 309092 1 Tablet(s) PO QHS 01/05/2011 012 Inactive Diflucan 200 mg Tab RxNorm: 005469 1 Tablet(s) PO QD 01/01/201101/14 Inactive Diflucan 200 mg Tab RxNorm: 334193 1 Tablet(s) PO QD 12/18/201012/31 Inactive Valium 10 mg Tab RxNorm: 877977 1 Tablet(s) PO QHS 12/12/2010 011 Inactive Diflucan 200 mg Tab RxNorm: 037764 1 Tablet(s) PO QD 12/07/201012/18 Inactive Aricept 10 mg Tab RxNorm: 172630 1 Tablet(s) PO QD 11/20/2010 011 Inactive ropinirole 1 mg Tab RxNorm: 895894 1 Tablet(s) PO QHS 11/16/201005/03 Inactive enalapril maleate 5 mg Tab RxNorm: 764440 1 Tablet(s) PO QD 011 05/20/2018 Inactive buspirone 10 mg Tab RxNorm: 506023 1 Tablet(s) PO BID 11/16/201012/02 Inactive Valium 10 mg Tab RxNorm: 128913 1 Tablet(s) PO QHS 11/07/2010 011 Inactive Pyridium 100 mg Tab RxNorm: 4385641 1 Tablet(s) PO TID 11/02/201004/2010 Inactive Macrobid 100 mg Cap RxNorm: 4850236 1 Capsule(s) PO BID 11/02/2010 Inactive buspirone 10 mg Tab RxNorm: 903975 1 Tablet(s) PO QHS 10/18/201005/02 Inactive propranolol 60 mg Tab RxNorm: 998967 1 Tablet(s) PO BID 09/18/2010 Inactive Valium 10 mg Tab RxNorm: 711879 1 Tablet(s) PO QHS 09/05/2010 011 Inactive Aricept 10 mg Tab RxNorm: 806228 1 Tablet(s) PO QD 08/14/2010 011 Inactive Valium 10 mg Tab RxNorm: 327428 1 Tablet(s) PO QHS 06/26/2010 011 Inactive ropinirole 1 mg Tab RxNorm: 214815 1 Tablet(s) PO QHS 06/19/201010/02 Inactive omeprazole 40 mg Cap, delayed release RxNorm: 340839 1 Capsule( s) PO QD 06/07/2010 10/04/2010 Inactive Endocet 10 mg-325 mg Tab RxNorm: 7811955 1 Tablet(s) PO QID as needed for severe pain 06/07/2010 03/07/2011 Inactive Endocet 10 mg-325 mg Tab RxNorm: 1036956 1 Tablet(s) PO QID as needed for severe pain 05/04/2010 06/02/2010 Inactive Valium 10 mg Tab RxNorm: 022716 1 Tablet(s) PO QHS 05/01/2010 011 Inactive propranolol 60 mg Tab RxNorm: 391025 1 Tablet(s) PO BID 04/03/2010 Inactive Valium 10 mg Tab RxNorm: 111563 1 Tablet(s) PO QHS 03/28/2010 011 Inactive omeprazole 40 mg Cap, Delayed Release RxNorm: 701053 1 Capsule( s) PO QD 03/28/2010 06/06/2010 Inactive Endocet 10 mg-325 mg Tab RxNorm: 7634581 1 Tablet(s) PO QID prn ari n 03/27/2010 05/20/2018 Inactive Valium 10 mg Tab RxNorm: 615617 1 Tablet(s) PO QHS 02/20/2010 011 Inactive Diflucan 100 mg Tab RxNorm: 846286 1 Tablet(s) PO BID 01/23/201003/2009 Inactive Diflucan 100 mg Tab RxNorm: 220464 1 Tablet(s) PO BID 01/05/201001/02 Inactive Aricept 10 mg Tab RxNorm: 385560 1 Tablet(s) PO QD 12/01/2009 011 Inactive OxyContin 20 mg 12 hr Tab RxNorm: 8140969 1 Tablet(s) PO BID 200904/05/2010 Inactive oxycodone-acetaminophen 10 mg-325 mg Tab RxNorm: 0381790 1 Table t(s) PO Q4H 11/22/2009 11/26/2009 Inactive Phenergan 25 mg Tab RxNorm: 581720 1 Tablet(s) PO PRN MIGRAINE 11/0303/07/2011 Inactive Demerol 100 mg Tab RxNorm: 106065 1 Tablet(s) PO PRN MIGRAINE 11/2203/07/2011 Inactive Oxycodone-Acetaminophen 10 mg-325 mg Tab RxNorm: 7278626 1 Table t(s) PO Q4H 10/11/2009 10/15/2009 Inactive Percocet 10 mg-325 mg Tab RxNorm: 4331100 1 Tablet(s) PO Q4H 200910/24/2009 Inactive propranolol 60 mg Tab RxNorm: 223434 1 Tablet(s) PO BID 08/29/2009 Inactive Valium 10 mg Tab RxNorm: 234800 1 Tablet(s) PO QHS 08/16/2009 010 Inactive Keflex 500 mg Cap RxNorm: 302277 1 Capsule(s) PO BID 07/25/200907/31 Inactive Hydroxyzine 25 mg Tab RxNorm: 394469 1 Tablet(s) PO TID 07/25/2009 Inactive Prednisone 20 mg Tab RxNorm: 118537 1 Tablet(s) PO BID 07/25/2009 Inactive Demerol 100 mg Tab RxNorm: 995473 1 Tablet(s) PO PRN MIGRAINE 07/25 No Stop Date Active Ropinirole 1 mg Tab RxNorm: 416309 1 Tablet(s) PO HS 07/20/200902/14 Inactive Valium 10 mg Tab RxNorm: 306101 1 Tablet(s) PO QHS 07/18/2009 010 Inactive Endocet 10 mg-325 mg Tab RxNorm: 9711705 1 Tablet(s) PO TID 010 07/07/2009 Inactive Demerol 100 mg Tab RxNorm: 521798 1 Tablet(s) PO PRN MIGRAINE 06/08 No Stop Date Active Ropinirole 1 mg Tab RxNorm: 459417 1 Tablet(s) PO HS 05/16/200907/14 Inactive ipratropium-albuterol 0.5 mg-3 mg(2.5 mg base)/3 mL ne bulization soln RxNorm: 6663613 1 Unit Dose INH Q4H as needed No Start Date Active diltiazem CD 240 mg capsule,extended release 24 hr RxNorm: 8 21941 1 Capsule(s) PO QD No Start Date Active metoprolol tartrate 25 mg tablet RxNorm: 176062 1 Tablet(s) PO BID No Start Date Active MagOx 400 mg (241.3 mg magnesium) tablet RxNorm: 766018 1 Table t(s) PO BID No Start Date Active Vitamin B12 1000mcg Tablet RxNorm: 1 Tablet(s) PO QD No Start Date Active Vitamin D3 5,000 unit tablet RxNorm: 065674 1 Tablet(s) PO QD No Star t Date Active Tylenol Arthritis Pain 650 mg tablet,extended release RxNorm : 8819602 1 Tablet(s) PO Q4H No Start Date Active Lotrimin AF 2 % topical powder RxNorm: 053605 1 Application TOP BID No Start Date Active enalapril maleate 5 mg Tab RxNorm: 862974 1 Tablet(s) PO QD No Star t Date 07/20/2012 Inactive Demerol 100 mg Tab RxNorm: 430512 Tablet(s) PO PRN MIGRAINE No Star t Date 06/02/2009 Inactive metformin 500 mg tablet RxNorm: 247435 1 Tablet(s) PO QD No Start D ate 04/05/2013 Inactive Breo Ellipta 100 mcg-25 mcg/dose powder for inhalation RxNor m: 9661268 1 Puff(s) INH BID No Start Date 01/04/2016 Inactive Mag-Oxide 400 mg Tab RxNorm: 330225 1 Tablet(s) PO QD No Start Date 0 07/21/2012 Inactive Cipro 500 mg Tab RxNorm: 198321 1 Tablet(s) PO QD No Start Date 04/05 Inactive Ativan 0.5 mg tablet RxNorm: 142876 1 Tablet(s) PO TID as needed No Start Date 05/06/2019 Inactive melatonin 3 mg tablet RxNorm: 683005 2 Tablet(s) PO QHS No Start Da te 08/19/2018 Inactive buspirone 10 mg Tab RxNorm: 468574 1 Tablet(s) PO QD No Start Date Inactive sucralfate 100 mg/mL Oral Susp RxNorm: 491096 2 Teaspoon(s) PO QID No Start Date 07/21/2012 Inactive hydrocodone 5 mg-acetaminophen 325 mg tablet RxNorm: 939001 1 Tablet(s) PO Q4H as needed No Start Date 08/19/2018 Inactive Amaryl 2 mg tablet RxNorm: 603687 1 Tablet(s) PO BID No Start Date Inactive OxyContin 20 mg 12 hr Tab RxNorm: 9267479 1 Tablet(s) PO BID No Sta rt Date 11/27/2009 Inactive propranolol 40 mg tablet RxNorm: 085406 1 Tablet(s) PO QID No Start Date 01/19/2018 Inactive Trazadone 150 mg Tablet RxNorm: 1-2 Tablet(s) PO QHS prn sleep No Start Date 08/09/2010 Inactive propranolol 60 mg Tab RxNorm: 339768 1/2 Tablet(s) PO BID No Start Date 01/21/2011 Inactive insulin NPH and regular human subcutaneous RxNorm: 6464274 subcu taneous No Start Date 11/20/2018 Inactive Ativan 0.5 mg tablet RxNorm: 911561 1 Tablet(s) PO QID No Start Date 06/18/2016 Inactive Vasotec 5 mg Tab RxNorm: 824130 1 Tablet(s) PO BID No Start Date 06/2011 Inactive Toprol XL 50 mg tablet,extended release RxNorm: 046983 1 Tablet (s) PO BID No Start Date 04/05/2013 Inactive Ativan 0.5 mg tablet RxNorm: 379753 1 Tablet(s) PO TID No Start Date 05/25/2016 Inactive Klor-Con M20 20 mEq Tab RxNorm: 0184602 1 Tablet(s) PO QD No Start Date 03/19/2011 Inactive sumatriptan 100 mg tablet RxNorm: 706149 1 Tablet(s) PO at headache onset--repeat in 2hrs if remains No Start Date 07/21/2012 Inactive propranolol 60 mg Tab RxNorm: 186118 1 Tablet(s) PO BID No Start Da te 08/28/2009 Inactive Cholestyramine Light 4 gram Oral Powder RxNorm: 4917833 1 Unit Dose PO QD in water No Start Date 07/21/2012 Inactive nystatin 100,000 unit/g Topical Powder RxNorm: 524477 Applicati on TOP BID No Start Date 07/21/2012 Inactive vitamin Z46-blzld acid sublingual RxNorm: sublingual No Start Date 07/05/2013 Inactive cyclobenzaprine 5 mg tablet RxNorm: 459413 1/2-1 Tablet (s) PO TID as needed for muscle spasm No Start Date 07/18/2017 Inactive tramadol 50 mg tablet RxNorm: 767272 2 Tablet(s) PO TID as need ed for pain No Start Date 09/01/2014 Inactive aspirin 81 mg Tab RxNorm: 970326 1 Tablet(s) PO QOD No Start Date 04/2013 Inactive Vitamin B12 1000mcg Tablet RxNorm: 1 Tablet(s) PO QD No Start Date 07/18/2017 Inactive cholestyramine (with sugar) 4 gram oral powder RxNorm: 95832 3 1 Unit(s) PO QD as needed No Start Date 05/20/2018 Inactive ProAir HFA 90 mcg/Actuation Aerosol Inhaler RxNorm: 949188 2 Puff(s) INH Q4H prn shortness of breath No Start Date 07/21/2012 Inactive pravastatin 10 mg Tab RxNorm: 423501 1 Tablet(s) PO QD No Start Date 07/21/2012 Inactive gabapentin 800 mg Tab RxNorm: 147533 1 Tablet(s) PO BID No Start Da te 06/03/2011 Inactive Endocet 10 mg-325 mg Tab RxNorm: 5048295 1 Tablet(s) PO TID No Star t Date 06/02/2009 Inactive Naproxen 500 mg Tab RxNorm: 700598 1 Tablet(s) PO BID No Start Date 0 04/05/2010 Inactive Valium 10 mg Tab RxNorm: 906276 1 Tablet(s) PO BID No Start Date 07/04 Inactive enalapril maleate 5 mg Tab RxNorm: 128750 1 Tablet(s) PO QD No Star t Date 11/15/2010 Inactive doxepin 10 mg capsule RxNorm: 7964748 2 Capsule(s) PO QHS No Start Date 09/17/2018 Inactive MS Contin 15 mg Tab RxNorm: 838407 1 Tablet(s) PO BID No Start Date 0 09/18/2010 Inactive buspirone 5 mg tablet RxNorm: 783165 1 Tablet(s) PO TID No Start Da te 12/01/2013 Inactive [place] 3 Fish Oil Cap RxNorm: 1 Capsule(s) PO QD No Start Date 07/03 Inactive enalapril maleate 5 mg Tab RxNorm: 539486 1/2 Tablet(s) PO QD No St art Date 03/07/2011 Inactive Lyrica 75 mg capsule RxNorm: 198393 1 Capsule(s) PO QHS No Start Da te 02/08/2014 Inactive Lopressor 100 mg tablet RxNorm: 577039 1 Tablet(s) PO BID No Start Date 06/08/2018 Inactive Lantus Solostar U-100 Insulin 100 unit/mL (3 mL) subcu taneous pen RxNorm: 173737 45 Unit(s) SQ QAM No Start Date 05/20/2018 Inactive aspirin 81 mg tablet RxNorm: 376252 1 Tablet(s) PO QD No Start Date 0 09/14/2015 Inactive insulin NPH isophane U-100 human subcutaneous RxNorm: 012808 beckwith bcutaneous No Start Date 04/20/2019 Inactive sumatriptan 100 mg tablet RxNorm: 019729 1 Tablet(s) PO at headache onset. May repeat 1 in two hours if headache remains. Max of 2 per 24 hours No Start Date 04/01/2018 Inactive gabapentin 300 mg capsule RxNorm: 023973 1 Capsule(s) PO QHS No Sta rt Date 02/04/2018 Inactive Topamax 25 mg Tab RxNorm: 943285 Oral No Start Date 03/07/2011 In active Senokot-S 8.6 mg-50 mg Tab RxNorm: 5591293 1 Tablet(s) PO QD No Sta rt Date 03/07/2011 Inactive metformin ER 500 mg 24 hr tablet,extended release RxNorm: 18 32777 1 Tablet(s) PO QD No Start Date 05/20/2018 Inactive Symbicort 80 mcg-4.5 mcg/actuation HFA Aerosol Inhaler RxNor m: 8798418 2 Puff(s) INH BID No Start Date 04/05/2013 Inactive propranolol 60 mg Tab RxNorm: 925007 1/2 Tablet(s) PO BID No Start Date 07/21/2012 Inactive metformin ER 500 mg 24 hr tablet,extended release RxNorm: 18 03745 2 Tablet(s) PO QD No Start Date 12/16/2017 Inactive Insulin Syringe 1 mL 29 gauge x 1/2" RxNorm: 2 s yringes daily with insulin Dx: E11.65 No Start Date 10/07/2018 Inactive Amitriptyline 75 mg Tab RxNorm: 471744 1 Tablet(s) PO QHS No Start Date 10/23/2009 Inactive donepezil 10 mg Tab RxNorm: 666766 1 Tablet(s) PO QD No Start Date Inactive Lantus Solostar U-100 Insulin 100 unit/mL (3 mL) subcu taneous pen RxNorm: 212445 36 Unit(s) SQ QAM No Start Date 12/24/2017 Inactive Miacalcin 200 unit/Actuation Nasal [place] Aerosol RxNorm: 261 204 1 [place] NASAL QD Alternate nostrils each day No Start Date 04/05/2010 Inactive Amitriptyline 150 mg Tab RxNorm: 067986 1 Tablet(s) PO QHS No Start Date 01/04/2010 Inactive Bystolic 5 mg tablet RxNorm: 209625 1 Tablet(s) PO QD No Start Date 0 08/13/2012 Inactive Aricept 10 mg Tab RxNorm: 972925 1 Tablet(s) PO QD No Start Date 11/03 Inactive Lantus Solostar U-100 Insulin 100 unit/mL (3 mL) subcu taneous pen RxNorm: 661712 50 Unit(s) SQ QAM No Start Date 08/27/2018 Inactive albuterol sulfate 2.5 mg/3 mL (0.083 %) Neb Solution RxNorm: 674389 1 Unit Dose INH QID as needed No Start Date 08/23/2015 Inactive Symbicort 160 mcg-4.5 mcg/actuation HFA Aerosol Inhaler RxNo rm: 8267900 2 Puff(s) INH BID No Start Date 12/03/2011 Inactive Savella 50 mg Tab RxNorm: 005726 1 Tablet(s) PO BID No Start Date 04/2010 Inactive amitriptyline 100 mg Tab RxNorm: 779232 1 1/2 Tablet(s) PO QHS No S tart Date 06/19/2011 Inactive nystatin 100,000 unit/g Topical Cream RxNorm: 104988 Ap plication TOP BID to rash for 2-4 weeks No Start Date 01/14/2011 Inactive Trelegy Ellipta 100 mcg-62.5 mcg-25 mcg powder for inhalatio n RxNorm: 9464070 1 Puff(s) INH QD No Start Date 12/16/2017 Inactive Lyrica 150 mg capsule RxNorm: 465773 1 Capsule(s) PO QHS No Start D ate 12/04/2015 Inactive sennosides 8.6 mg tablet RxNorm: 511904 1 Tablet(s) PO BID No Start Date 09/07/2018 Inactive metformin ER 500 mg tablet,extended release 24 hr RxNorm: 86 0975 1 Tablet(s) PO QD No Start Date 10/22/2017 Inactive Fish Oil 1,000 mg Cap RxNorm: 1 Capsule(s) PO QD No Start Date 06/2011 Inactive Zyrtec 10 mg Tab RxNorm: 7267896 1 Tablet(s) PO QD No Start Date 07/03 Inactive albuterol sulfate HFA 90 mcg/actuation aerosol inhaler RxNor m: 3655534 2 Puff(s) INH Q4H as needed for cough No Start Date 09/30/2013 Inactive trazodone 150 mg tablet RxNorm: 550728 1 Tablet(s) PO QHS No Start Date 07/21/2012 Inactive Spiriva with HandiHaler 18 mcg & inhalation capsules RxNorm: 348316 1 Capsule(s) INH QD No Start Date 04/05/2013 Inactive Coreg 3.125 mg Tab RxNorm: 489524 1 Tablet(s) PO BID No Start Date Inactive Phenergan 25 mg Tab RxNorm: 342792 Tablet(s) PO PRN MIGRAINE No Sta rt Date 11/21/2009 Inactive Vitamin D 50,000 unit Cap RxNorm: 1384572 1 Capsule(s) PO QW No Sta rt Date 03/07/2011 Inactive Januvia 100 mg tablet RxNorm: 824314 1 Tablet(s) PO QD No Start Date 10/25/2015 Inactive Eliquis 5 mg tablet RxNorm: 8555736 1 Tablet(s) PO BID No Start Date 08/19/2018 Inactive Advair Diskus 500 mcg-50 mcg/Dose for Inhalation RxNorm: 527550 1 INH BID No Start Date 07/21/2012 Inactive Vitamin D3 5,000 unit tablet RxNorm: 050277 1 Tablet(s) PO QD No St art Date 07/18/2017 Inactive Amaryl 2 mg tablet RxNorm: 278979 1 Tablet(s) PO QD No Start Date 06/2015 Inactive Actos 30 mg tablet RxNorm: 994336 1 Tablet(s) PO QD No Start Date Inactive promethazine 25 mg tablet RxNorm: 679544 1 Tablet(s) PO Q4H prn N/V No Start Date 07/21/2012 Inactive ProAir HFA 90 mcg/actuation Aerosol Inhaler RxNorm: 353187 2 Puff(s) INH Q4H prn dyspnea No Start Date 07/21/2012 Inactive Dexilant 60 mg Capsule RxNorm: 275446 1 Capsule(s) PO QD No Start D ate 01/27/2012 Inactive Lantus Solostar U-100 Insulin 100 unit/mL (3 mL) subcu taneous pen RxNorm: 113273 38 Unit(s) SQ QAM No Start Date 05/20/2018 Inactive Valium 10 mg Tab RxNorm: 610438 1 Tablet(s) PO QHS AND PRN No Start Date 10/24/2009 Inactive ZOFRAN ODT 8 mg disintegrating tablet RxNorm: 790228 1 Tablet(s ) PO Q6H No Start [...] Date S ervice Location MICROALBUMIN URINE RANDOM 21453 MICRL MG/L 14.9 MG/L Unknown MICROALBUMIN URINE RANDOM 88374 XM.ALB/CRE 6.1 MG/GCR Unknown MICROALBUMIN URINE RANDOM 76256 CREAT MG/D 243 MG/DL Unknown MICROALBUMIN URINE RANDOM 06353 CRE/100 2.43 G/L 03/05 Unknown PROTEIN/CREAT URINE WITH RATIO 39964|82496 PROT R U 14 MG/D L 04/01/2014 Unknown PROTEIN/CREAT URINE WITH RATIO 30623|05597 CREAT R U 254 MG/ DL 04/01/2014 Unknown PROTEIN/CREAT URINE WITH RATIO 90716|00953 XRATIO P/C 55 MG/ G 04/01/2014 Unknown URINALYSIS 43898 PROTEIN UR NEG 04/28/2010 Unknown URINALYSIS 65913 HEMGLBN UR NEG 04/28/2010 Unknown URINALYSIS 26643 GLUCOSE UR NEG 04/28/2010 Unknown URINALYSIS 29321 KETONES UR NEG 04/28/2010 Unknown URINALYSIS 45612 PH U 5.5 04/28/2010 Unknown URINALYSIS 00092 SP GR U 1.025 04/28/2010 Unknown URINALYSIS 14345 BILRUBN UR NEG 04/28/2010 Unknown URINALYSIS 65605 LEUKO UR 2+ 04/28/2010 Unknown URINALYSIS 41140 NITRITE UR NEG 04/28/2010 Unknown MICR CUL? [id number] WBC/HPF 6-10 04/28/2010 Unknown MICR CUL? [id number] RBC/HPF 0-5 04/28/2010 Unknown MICR CUL? [id number] HYAL CAST 16-25 04/28/2010 Unknown MICR CUL? [id number] SP TO YOLIE? NO 04/28/2010 Unknown MICR CUL? [id number] APPEAR UR NORMAL 04/28/2010 Unknown MICR CUL? [id number] SQ EPI/LPF FEW 04/28/2010 Unknown Procedures Procedure Codes Date URINALYSIS NONAUTO W/O SCOPE CPT-4: 59248 04/16/2019 URINE CULTURE/ COLONY COUNT CPT-4: 04870 04/16/2019 CEFTRIAXONE SODIUM INJECTION CPT-4: J0696 04/16/2019 THER/PROPH/DIAG INJ SC/IM CPT-4: 40285 04/16/2019 DRAIN/INJECT JOINT/BURSA CPT-4: 44919 01/22/2019 TRIAMCINOLONE ACET INJ NOS CPT-4: J3301 01/22/2019 DEXAMETHASONE SODIUM PHOS CPT-4: J1100 01/22/2019 URINE CULTURE/ COLONY COUNT CPT-4: 96814 01/07/2019 URINALYSIS NONAUTO W/O SCOPE CPT-4: 57674 01/07/2019 CEFTRIAXONE SODIUM INJECTION CPT-4: J0696 01/07/2019 THER/PROPH/DIAG INJ SC/IM CPT-4: 61574 01/07/2019 FLU VACC PRSV FREE INC ANTIG 65 AND OLDER CPT-4: 46452 12/24/2018 FLU VACC PRSV FREE INC ANTIG 65 AND OLDER CPT-4: 98738 12/24/2018 ADMIN INFLUENZA VIRUS VAC CPT-4: G0008 12/24/2018 THER/PROPH/DIAG INJ SC/IM CPT-4: 22532 11/04/2018 KETOROLAC TROMETHAMINE INJ CPT-4: J1885 11/04/2018 PROMETHAZINE HCL INJECTION CPT-4: J2550 11/04/2018 PPPS, subseq visit CPT-4: G0439 09/18/2018 THER/PROPH/DIAG INJ SC/IM CPT-4: 60612 04/01/2018 KETOROLAC TROMETHAMINE INJ CPT-4: J1885 04/01/2018 PROMETHAZINE HCL INJECTION CPT-4: J2550 04/01/2018 URINE CULTURE/ COLONY COUNT CPT-4: 47108 03/17/2018 URINALYSIS NONAUTO W/O SCOPE CPT-4: 87373 03/17/2018 FLU VACC PRSV FREE INC ANTIG 65 AND OLDER CPT-4: 38210 12/17/2017 PNEUMOCOCCAL VACC 23 RANDALL IM CPT-4: 99513 12/17/2017 ADMIN INFLUENZA VIRUS VAC CPT-4: G0008 12/17/2017 ADMIN PNEUMOCOCCAL VACCINE CPT-4: G0009 12/17/2017 PPPS, subseq visit CPT-4: G0439 09/17/2017 THER/PROPH/DIAG INJ SC/IM CPT-4: 89163 08/26/2017 KETOROLAC TROMETHAMINE INJ CPT-4: J1885 08/26/2017 PROMETHAZINE HCL INJECTION CPT-4: J2550 08/26/2017 URINALYSIS NONAUTO W/O SCOPE CPT-4: 97775 07/19/2017 URINE CULTURE/ COLONY COUNT CPT-4: 21835 07/19/2017 CEFTRIAXONE SODIUM INJECTION CPT-4: J0696 07/19/2017 THER/PROPH/DIAG INJ SC/IM CPT-4: 26127 07/19/2017 THER/PROPH/DIAG INJ SC/IM CPT-4: 39677 07/19/2017 TRIAMCINOLONE ACET INJ NOS CPT-4: J3301 07/19/2017 PRESCRIP TRANSMIT VIA ERX SY CPT-4: G8553 05/07/2017 PRESCRIP TRANSMIT VIA ERX SY CPT-4: G8553 02/22/2017 PRESCRIP TRANSMIT VIA ERX SY CPT-4: G8553 01/23/2017 FLU VACC PRSV FREE INC ANTIG 65 AND OLDER CPT-4: 68509 12/20/2016 PNEUMOCOCCAL VACC 13 RANDALL IM CPT-4: 66531 12/20/2016 ADMIN INFLUENZA VIRUS VAC CPT-4: G0008 12/20/2016 ADMIN PNEUMOCOCCAL VACCINE CPT-4: G0009 12/20/2016 URINALYSIS NONAUTO W/O SCOPE CPT-4: 36060 10/08/2016 URINE CULTURE/ COLONY COUNT CPT-4: 08980 10/08/2016 PRESCRIP TRANSMIT VIA ERX SY CPT-4: G8553 10/08/2016 PRESCRIP TRANSMIT VIA ERX SY CPT-4: G8553 09/19/2016 PRESCRIP TRANSMIT VIA ERX SY CPT-4: G8553 08/20/2016 PRESCRIP TRANSMIT VIA ERX SY CPT-4: G8553 02/29/2016 KETOROLAC TROMETHAMINE INJ CPT-4: J1885 02/02/2016 THER/PROPH/DIAG INJ SC/IM CPT-4: 05338 02/02/2016 PROMETHAZINE HCL INJECTION CPT-4: J2550 02/02/2016 PRESCRIP TRANSMIT VIA ERX SY CPT-4: G8553 02/02/2016 FLU VACC PRSV FREE INC ANTIG 65 AND OLDER CPT-4: 85692 01/05/2016 PPPS, subseq visit CPT-4: G0439 01/05/2016 ADMIN INFLUENZA VIRUS VAC CPT-4: G0008 01/05/2016 URINE CULTURE/ COLONY COUNT CPT-4: 11889 12/05/2015 URINALYSIS NONAUTO W/O SCOPE CPT-4: 08213 12/05/2015 PRESCRIP TRANSMIT VIA ERX SY CPT-4: G8553 12/05/2015 PRESCRIP TRANSMIT VIA ERX SY CPT-4: G8553 10/26/2015 URINALYSIS NONAUTO W/O SCOPE CPT-4: 29325 10/05/2015 URINE CULTURE/ COLONY COUNT CPT-4: 74172 10/05/2015 PRESCRIP TRANSMIT VIA ERX SY CPT-4: G8553 10/05/2015 MD SERVICE REQUIRED FOR PMD CPT-4: G0372 09/15/2015 PRESCRIP TRANSMIT VIA ERX SY CPT-4: G8553 09/15/2015 SPECIAL REPORTS OR FORMS CPT-4: 82114 08/25/2015 PRESCRIP TRANSMIT VIA ERX SY CPT-4: G8553 07/05/2015 URINALYSIS NONAUTO W/O SCOPE CPT-4: 44451 03/30/2015 ASSAY, GLUCOSE, BLOOD QUANT CPT-4: 06504 03/30/2015 URINE CULTURE/ COLONY COUNT CPT-4: 39005 03/30/2015 PRESCRIP TRANSMIT VIA ERX SY CPT-4: G8553 03/30/2015 PRESCRIP TRANSMIT VIA ERX SY CPT-4: G8553 02/03/2015 FLU VACC PRSV FREE INC ANTIG 65 AND OLDER CPT-4: 73833 12/29/2014 ADMIN INFLUENZA VIRUS VAC CPT-4: G0008 12/29/2014 PRESCRIP TRANSMIT VIA ERX SY CPT-4: G8553 12/29/2014 PRESCRIP TRANSMIT VIA ERX SY CPT-4: G8553 09/02/2014 PROTEIN/CREAT URINE WITH RATIO CPT-4: 84268|10651 5 MICROALBUMIN QUANTITATIVE CPT-4: 87965 04/01/2014 PRESCRIP TRANSMIT VIA ERX SY CPT-4: G8553 03/16/2014 PRESCRIP TRANSMIT VIA ERX SY CPT-4: G8553 03/09/2014 THER/PROPH/DIAG INJ SC/IM CPT-4: 03127 03/01/2014 TRIAMCINOLONE ACET INJ NOS CPT-4: J3301 03/01/2014 PRESCRIP TRANSMIT VIA ERX SY CPT-4: G8553 02/09/2014 URINE CULTURE/ COLONY COUNT CPT-4: 66890 10/30/2013 URINALYSIS NONAUTO W/O SCOPE CPT-4: 43241 10/21/2013 URINE CULTURE/ COLONY COUNT CPT-4: 87070 10/21/2013 DESTRUCT PREMALG LESION (Cryosurgery) CPT-4: 76904 PRESCRIP TRANSMIT VIA ERX SY CPT-4: G8553 10/05/2013 URINALYSIS NONAUTO W/O SCOPE CPT-4: 54699 08/04/2013 URINE CULTURE/ COLONY COUNT CPT-4: 94004 08/04/2013 PRESCRIP TRANSMIT VIA ERX SY CPT-4: G8553 08/04/2013 THER/PROPH/DIAG INJ SC/IM CPT-4: 88632 07/13/2013 TRIAMCINOLONE ACET INJ NOS CPT-4: J3301 07/13/2013 PRESCRIP TRANSMIT VIA ERX SY CPT-4: G8553 05/27/2013 URINALYSIS NONAUTO W/O SCOPE CPT-4: 90203 05/25/2013 URINE CULTURE/ COLONY COUNT CPT-4: 42477 05/25/2013 THER/PROPH/DIAG INJ SC/IM CPT-4: 12349 05/04/2013 VITAMIN B12 INJECTION CPT-4: J3420 05/04/2013 THER/PROPH/DIAG INJ SC/IM CPT-4: 88587 04/17/2013 VITAMIN B12 INJECTION CPT-4: J3420 04/17/2013 THER/PROPH/DIAG INJ SC/IM CPT-4: 08728 04/17/2013 METHYLPREDNISOLONE 40 MG INJ CPT-4: J1030 04/17/2013 TRIAMCINOLONE ACET INJ NOS CPT-4: J3301 04/17/2013 URINALYSIS NONAUTO W/O SCOPE CPT-4: 97089 04/06/2013 URINE CULTURE/ COLONY COUNT CPT-4: 03953 04/06/2013 PRESCRIP TRANSMIT VIA ERX SY CPT-4: G8553 04/06/2013 KETOROLAC TROMETHAMINE INJ CPT-4: J1885 06/25/2012 PROMETHAZINE HCL INJECTION CPT-4: J2550 06/25/2012 THER/PROPH/DIAG INJ SC/IM CPT-4: 59105 06/25/2012 THER/PROPH/DIAG INJ SC/IM CPT-4: 35659 06/24/2012 METHYLPREDNISOLONE 40 MG INJ CPT-4: J1030 06/24/2012 TRIAMCINOLONE ACET INJ NOS CPT-4: J3301 06/24/2012 URINE CULTURE/ COLONY COUNT CPT-4: 18906 06/24/2012 THER/PROPH/DIAG INJ SC/IM CPT-4: 55165 05/20/2012 KETOROLAC TROMETHAMINE INJ CPT-4: J1885 05/20/2012 THER/PROPH/DIAG INJ SC/IM CPT-4: 34904 05/20/2012 PROMETHAZINE HCL INJECTION CPT-4: J2550 05/20/2012 DRAIN/INJECT JOINT/BURSA CPT-4: 85326 02/13/2012 METHYLPREDNISOLONE 40 MG INJ CPT-4: J1030 02/13/2012 TRIAMCINOLONE ACET INJ NOS CPT-4: J3301 02/13/2012 THER/PROPH/DIAG INJ SC/IM CPT-4: 47228 11/14/2011 METHYLPREDNISOLONE 40 MG INJ CPT-4: J1030 11/14/2011 TRIAMCINOLONE ACET INJ NOS CPT-4: J3301 11/14/2011 THER/PROPH/DIAG INJ SC/IM CPT-4: 21929 09/12/2011 KETOROLAC TROMETHAMINE INJ CPT-4: J1885 09/12/2011 THER/PROPH/DIAG INJ SC/IM CPT-4: 25329 08/09/2011 METHYLPREDNISOLONE 40 MG INJ CPT-4: J1030 08/09/2011 TRIAMCINOLONE ACET INJ NOS CPT-4: J3301 08/09/2011 URINE CULTURE/ COLONY COUNT CPT-4: 97530 07/03/2011 URINE CULTURE/ COLONY COUNT CPT-4: 73475 06/04/2011 THER/PROPH/DIAG INJ SC/IM CPT-4: 90815 05/03/2011 METHYLPREDNISOLONE 40 MG INJ CPT-4: J1030 05/03/2011 TRIAMCINOLONE ACET INJ NOS CPT-4: J3301 05/03/2011 URINALYSIS NONAUTO W/O SCOPE CPT-4: 67675 01/24/2011 URINE CULTURE/ COLONY COUNT CPT-4: 62565 01/24/2011 FLUZONE, 5ML (Medicare) CPT-4: Q2038 01/02/2011 ADMIN INFLUENZA VIRUS VAC CPT-4: G0008 01/02/2011 ASSAY, GLUCOSE, BLOOD QUANT CPT-4: 97000 12/07/2010 URINE CULTURE/ COLONY COUNT CPT-4: 21349 11/02/2010 THER/PROPH/DIAG INJ SC/IM CPT-4: 16429 10/18/2010 METHYLPREDNISOLONE 40 MG INJ CPT-4: J1030 10/18/2010 TRIAMCINOLONE ACET INJ NOS CPT-4: J3301 10/18/2010 TRIAMCINOLONE ACET INJ NOS CPT-4: J3301 05/11/2010 METHYLPREDNISOLONE 40 MG INJ CPT-4: J1030 05/11/2010 THER/PROPH/DIAG INJ SC/IM CPT-4: 83294 05/11/2010 TRIAMCINOLONE ACET INJ NOS CPT-4: J3301 02/09/2010 METHYLPREDNISOLONE 40 MG INJ CPT-4: J1030 02/09/2010 THER/PROPH/DIAG INJ SC/IM CPT-4: 74261 02/09/2010 SERVICE REQUIRED FOR PMD CPT-4: G0372 02/09/2010 FLU VACCINE 3 YRS & > IM UP 64 CPT-4: 85428 0 PNEUMOCOCCAL VACC 23 RANDALL IM CPT-4: 91425 12/07/2009 ADMIN INFLUENZA VIRUS VAC CPT-4: G0008 12/07/2009 ADMIN PNEUMOCOCCAL VACCINE CPT-4: G0009 12/07/2009 TRIAMCINOLONE ACET INJ NOS CPT-4: J3301 05/26/2009 THER/PROPH/DIAG INJ SC/IM CPT-4: 30905 05/26/2009 METHYLPREDNISOLONE 80 MG INJ CPT-4: J1040 [...] 1: 114/72 Code: 8480-6 BMI: 37.8 Code: 60534-5 Heart Rate 1: 72 bpm Height: 5'3" [...] 1: 106/68 Code: 8480-6 BMI: 35.7 Code: 13731-6 Heart Rate 1: 72 bpm Height: 5'4" Respiratory Rate: 20 bpm SpO2: 98% Tempera ture: 36.7 (C) / 98.0 (F) Weight: 208 lbs 04/16/2018 Blood Pressure 1: 132/82 Code: 8480-6 BMI: 37.9 Code: 89074-1 Heart Rate 1: 72 bpm Height: 5'4" Respiratory Rate: 20 bpm SpO2: 96% Tempera ture: 37.1 (C) / 98.8 (F) Weight: 221 lbs 04/01/2018 Blood Pressure 1: 150/90 Code: 8480-6 Heart Rate 1: 72 bpm Respiratory Rate: 22 bpm SpO2: 95% Temperature: 36.4 (C) / 97.6 (F) We ight: 216 lbs 03/06/2018 Blood Pressure 1: 126/78 Code: 8480-6 BMI: 37.4 Code: 96907-6 Heart Rate 1: 68 bpm Height: 5'4" [...] ight: 222 lbs 12/25/2017 BMI: 37.8 Code: 44574-3 Heart Rate 1: 76 bpm Height: 5 '4" Respiratory Rate: 20 bpm SpO2: 96% Temperature: 37.3 (C) / 99.2 (F) Weight: 220 lbs 12/17/2017 Blood Pressure 1: 132/78 Code: 8480-6 BMI: 37.2 Code: 03783-5 Heart Rate 1: 88 bpm Height: 5'4" Respiratory Rate: 20 bpm SpO2: 96% Tempera ture: 37.3 (C) / 99.2 (F) Weight: 217 lbs 10/30/2017 Blood Pressure 1: 114/68 Code: 8480-6 BMI: 36.4 Code: 40881-5 Heart Rate 1: 72 bpm Height: 5'4" Respiratory Rate: 22 bpm SpO2: 96% Tempera ture: 36.8 (C) / 98.2 (F) Weight: 212 lbs 10/23/2017 Blood Pressure 1: 124/78 Code: 8480-6 Heart Rate 1: 72 bpm Respiratory Rate: 24 bpm SpO2: 94% Temperature: 36.6 (C) / 97.9 (F) We ight: 212 lbs 09/17/2017 Blood Pressure 1: 128/82 Code: 8480-6 BMI: 37.4 Code: 84587-4 Heart Rate 1: 72 bpm Height: 5'4" Respiratory Rate: 20 bpm SpO2: 96% Tempera ture: 37.0 (C) / 98.6 (F) Weight: 218 lbs 07/19/2017 Blood Pressure 1: 136/84 Code: 8480-6 BMI: 36.6 Code: 81911-0 Heart Rate 1: 88 bpm Height: 5'4" Respiratory Rate: 20 bpm SpO2: 97% Tempera ture: 36.7 (C) / 98.0 (F) Weight: 213 lbs 05/29/2017 Blood Pressure 1: 136/82 Code: 8480-6 BMI: 36.7 Code: 68810-6 Heart Rate 1: 72 bpm Height: 5'4" Respiratory Rate: 20 bpm SpO2: 97% Tempera ture: 36.9 (C) / 98.4 (F) Weight: 214 lbs 05/07/2017 Blood Pressure 1: 122/80 Code: 8480-6 BMI: 37.1 Code: 07980-9 Heart Rate 1: 80 bpm Height: 5'4" Respiratory Rate: 24 bpm SpO2: 96% Tempera ture: 36.1 (C) / 97.0 (F) Weight: 216 lbs 03/18/2017 BMI: 36.7 Code: 63111-7 Heart Rate 1: 80 bpm Height: 5 '4" Respiratory Rate: 22 bpm SpO2: 95% Temperature: 36.9 (C) / 98.4 (F) Weight: 214 lbs 02/27/2017 Blood Pressure 1: 146/94 Code: 8480-6 BMI: 36.6 Code: 09464-4 Heart Rate 1: 76 bpm Height: 5'4" Respiratory Rate: 22 bpm SpO2: 97% Tempera ture: 36.6 (C) / 97.9 (F) Weight: 213 lbs 02/22/2017 Blood Pressure 1: 126/90 Code: 8480-6 BMI: 36.4 Code: 11233-2 Heart Rate 1: 84 bpm Height: 5'4" Respiratory Rate: 22 bpm SpO2: 95% Tempera ture: 36.9 (C) / 98.4 (F) Weight: 212 lbs 01/23/2017 Blood Pressure 1: 146/82 Code: 8480-6 BMI: 37.6 Code: 54121-5 Heart Rate 1: 96 bpm Height: 5'4" Respiratory Rate: 20 bpm SpO2: 96% Tempera ture: 36.9 (C) / 98.4 (F) Weight: 219 lbs 12/20/2016 Blood Pressure 1: 126/70 Code: 8480-6 BMI: 37.2 Code: 04662-1 Heart Rate 1: 76 bpm Height: 5'4" Respiratory Rate: 22 bpm SpO2: 95% Tempera ture: 36.6 (C) / 97.8 (F) Weight: 217 lbs 10/08/2016 Blood Pressure 1: 128/82 Code: 8480-6 BMI: 36.9 Code: 98458-5 Heart Rate 1: 76 bpm Height: 5'4" Respiratory Rate: 20 bpm SpO2: 95% Tempera ture: 37.0 (C) / 98.6 (F) Weight: 215 lbs 09/19/2016 Blood Pressure 1: 144/78 Code: 8480-6 BMI: 37.8 Code: 21691-5 Heart Rate 1: 76 bpm Height: 5'4" Respiratory Rate: 22 bpm SpO2: 95% Tempera ture: 37.0 (C) / 98.6 (F) Weight: 220 lbs 08/20/2016 Blood Pressure 1: 140/86 Code: 8480-6 BMI: 37.4 Code: 74912-1 Heart Rate 1: 80 bpm Height: 5'4" Respiratory Rate: 20 bpm SpO2: 95% Tempera ture: 36.9 (C) / 98.4 (F) Weight: 218 lbs 06/19/2016 Blood Pressure 1: 124/78 Code: 8480-6 BMI: 37.8 Code: 06420-3 Heart Rate 1: 74 bpm Height: 5'4" Respiratory Rate: 24 bpm SpO2: 96% Tempera ture: 36.9 (C) / 98.4 (F) Weight: 220 lbs 06/04/2016 Blood Pressure 1: 124 Code: 8480-6 BMI: 38.8 Code: 15095-2 Heart Rate 1: 72 bpm Height: 5'4" Respiratory Rate: 24 bpm SpO2: 95% Tempera ture: 36.8 (C) / 98.2 (F) Weight: 226 lbs 05/02/2016 Blood Pressure 1: 136/90 Code: 8480-6 BMI: 37.6 Code: 86731-8 Heart Rate 1: 72 bpm Height: 5'4" Respiratory Rate: 24 bpm SpO2: 96% Tempera ture: 36.9 (C) / 98.4 (F) Weight: 219 lbs 04/03/2016 Blood Pressure 1: 126/78 Code: 8480-6 BMI: 38.1 Code: 60951-3 Heart Rate 1: 72 bpm Height: 5'4" Respiratory Rate: 22 bpm SpO2: 94% Tempera ture: 36.9 (C) / 98.4 (F) Weight: 222 lbs 02/29/2016 Blood Pressure 1: 132/78 Code: 8480-6 Heart Rate 1: 78 bpm Height: Respiratory Rate: 24 bpm SpO2: 95% Temperature: 36.4 (C) / 97.6 (F) We ight: 02/02/2016 Blood Pressure 1: 124/78 Code: 8480-6 BMI: 37.6 Code: 66935-7 Heart Rate 1: 76 bpm Height: 5'4" Respiratory Rate: 20 bpm SpO2: 95% Tempera ture: 36.8 (C) / 98.2 (F) Weight: 219 lbs 01/05/2016 Blood Pressure 1: 126/70 Code: 8480-6 BMI: 37.1 Code: 73526-7 Heart Rate 1: 76 bpm Height: 5'4" Respiratory Rate: 20 bpm Temperature: 36 .6 (C) / 97.8 (F) Weight: 216 lbs 12/05/2015 Blood Pressure 1: 126/72 Code: 8480-6 BMI: 36.9 Code: 82018-4 Heart Rate 1: 92 bpm Height: 5'4" Respiratory Rate: 20 bpm Temperature: 36 .7 (C) / 98.1 (F) Weight: 215 lbs 10/26/2015 Blood Pressure 1: 142/80 Code: 8480-6 BMI: 36.4 Code: 33536-7 Heart Rate 1: 82 bpm Height: 5'4" Respiratory Rate: 24 bpm SpO2: 92% Tempera ture: 35.9 (C) / 96.7 (F) Weight: 212 lbs 10/05/2015 Blood Pressure 1: 136/82 Code: 8480-6 Heart Rate 1: 80 bpm Respiratory Rate: 18 bpm SpO2: 98% Temperature: 35.7 (C) / 96.3 (F) We ight: 214 lbs 09/15/2015 Blood Pressure 1: 116/80 Code: 8480-6 BMI: 34.6 Code: 11414-8 Heart Rate 1: 76 bpm Height: 5'6" Respiratory Rate: 20 bpm Temperature: 36 .6 (C) / 97.9 (F) Weight: 211 lbs 08/24/2015 Blood Pressure 1: 124/80 Code: 8480-6 BMI: 34.1 Code: 77999-1 Heart Rate 1: 68 bpm Height: 5'6" Respiratory Rate: 20 bpm Temperature: 36 .8 (C) / 98.3 (F) Weight: 208 lbs 07/05/2015 Blood Pressure 1: 114/78 Code: 8480-6 BMI: 33.9 Code: 59486-5 Heart Rate 1: 80 bpm Height: 5'6" Respiratory Rate: 20 bpm Temperature: 36 .6 (C) / 97.9 (F) Weight: 207 lbs 06/06/2015 Blood Pressure 1: 122/78 Code: 8480-6 BMI: 34.1 Code: 91443-9 Heart Rate 1: 76 bpm Height: 5'6" Respiratory Rate: 24 bpm SpO2: 96% Tempera ture: 36.4 (C) / 97.6 (F) Weight: 208 lbs 05/23/2015 Blood Pressure 1: 124/78 Code: 8480-6 Heart Rate 1: 76 bpm Respiratory Rate: 24 bpm SpO2: 93% Temperature: 36.8 (C) / 98.2 (F) We ight: 212 lbs 05/05/2015 Blood Pressure 1: 136/80 Code: 8480-6 BMI: 35.4 Code: 31082-8 Heart Rate 1: 76 bpm Height: 5'6" Respiratory Rate: 28 bpm Temperature: 37 .0 (C) / 98.6 (F) Weight: 216 lbs 03/30/2015 Blood Pressure 1: 132/86 Code: 8480-6 BMI: 35.2 Code: 08932-4 Heart Rate 1: 84 bpm Height: 5'6" Respiratory Rate: 24 bpm Temperature: 36 .7 (C) / 98.0 (F) Weight: 215 lbs 02/03/2015 Blood Pressure 1: 122/74 Code: 8480-6 BMI: 35.7 Code: 25597-6 Heart Rate 1: 84 bpm Height: 5'6" Respiratory Rate: 20 bpm Temperature: 36 .9 (C) / 98.5 (F) Weight: 218 lbs 12/29/2014 Blood Pressure 1: 132/80 Code: 8480-6 BMI: 35.1 Code: 75579-6 Heart Rate 1: 80 bpm Height: 5'6" Respiratory Rate: 20 bpm Temperature: 36 .6 (C) / 97.8 (F) Weight: 214 lbs 09/02/2014 Blood Pressure 1: 128/92 Code: 8480-6 BMI: 34.7 Code: 46231-3 Heart Rate 1: 84 bpm Height: 5'6" Respiratory Rate: 26 bpm Temperature: 36 .8 (C) / 98.2 (F) Weight: 212 lbs 08/25/2014 Blood Pressure 1: 124/80 Code: 8480-6 BMI: 34.7 Code: 94444-2 Heart Rate 1: 78 bpm Height: 5'6" Respiratory Rate: 22 bpm SpO2: 97% Tempera ture: 36.6 (C) / 97.8 (F) Weight: 212 lbs 04/01/2014 Blood Pressure 1: 142/84 Code: 8480-6 BMI: 34.4 Code: 69585-3 Heart Rate 1: 74 bpm Height: 5'5" Respiratory Rate: 20 bpm Temperature: 36 .4 (C) / 97.6 (F) Weight: 207 lbs 03/16/2014 Blood Pressure 1: 142/90 Code: 8480-6 BMI: 34.6 Code: 95402-5 Heart Rate 1: 76 bpm Height: 5'5" Respiratory Rate: 24 bpm Temperature: 36 .5 (C) / 97.7 (F) Weight: 208 lbs 03/09/2014 Blood Pressure 1: 116/70 Code: 8480-6 BMI: 35.3 Code: 58369-0 Heart Rate 1: 72 bpm Height: 5'5" [...] 1: 128/86 Code: 8480-6 BMI: 34.3 Code: 85284-9 Heart Rate 1: 84 bpm Height: 5'5" Respiratory Rate: 20 bpm Temperature: 36 .7 (C) / 98.0 (F) Weight: 206 lbs 12/23/2013 Blood Pressure 1: 122/70 Code: 8480-6 BMI: 34.3 Code: 78777-4 Heart Rate 1: 68 bpm Height: 5'5" Respiratory Rate: 20 bpm Temperature: 36 .8 (C) / 98.2 (F) Weight: 206 lbs 10/05/2013 Blood Pressure 1: 118/76 Code: 8480-6 BMI: 34.1 Code: 30208-0 Heart Rate 1: 68 bpm Height: 5'5" Respiratory Rate: 20 bpm SpO2: 98% Tempera ture: 36.6 (C) / 97.9 (F) Weight: 205 lbs 08/04/2013 Blood Pressure 1: 126/82 Code: 8480-6 BMI: 33.3 Code: 21578-6 Heart Rate 1: 76 bpm Height: 5'5" Respiratory Rate: 20 bpm Temperature: 36 .8 (C) / 98.2 (F) Weight: 200 lbs 07/03/2013 Blood Pressure 1: 124/82 Code: 8480-6 BMI: 33.3 Code: 31277-4 Heart Rate 1: 72 bpm Height: 5'5" Respiratory Rate: 22 bpm Temperature: 36 .1 (C) / 97.0 (F) Weight: 200 lbs 05/27/2013 Blood Pressure 1: 126/82 Code: 8480-6 Heart Rate 1: 74 bpm Respiratory Rate: 20 bpm Temperature: 36.0 (C) / 96.8 (F) Weight: 199 lbs 04/06/2013 Blood Pressure 1: 118/80 Code: 8480-6 BMI: 35.2 Code: 06320-7 Heart Rate 1: 80 bpm Height: 5'4" Respiratory Rate: 20 bpm Temperature: 37 .4 (C) / 99.3 (F) Weight: 205 lbs 11/10/2012 Blood Pressure 1: 128/82 Code: 8480-6 Heart Rate 1: 84 bpm Respiratory Rate: 20 bpm Temperature: 36.7 (C) / 98.0 (F) Weight: 199 lbs 09/02/2012 Blood Pressure 1: 116/82 Code: 8480-6 BMI: 34.2 Code: 45815-0 Heart Rate 1: 88 bpm Height: 5'4" Respiratory Rate: 22 bpm Temperature: 36 .6 (C) / 97.8 (F) Weight: 199 lbs 08/04/2012 Blood Pressure 1: 128/74 Code: 8480-6 BMI: 34.0 Code: 44646-5 Heart Rate 1: 92 bpm Height: 5'4" Respiratory Rate: 20 bpm Temperature: 36 .4 (C) / 97.5 (F) Weight: 198 lbs 07/21/2012 Blood Pressure 1: 124/86 Code: 8480-6 Heart Rate 1: 116 bpm Respiratory Rate: 24 bpm Temperature: 36.8 (C) / 98.2 (F) 07/02/2012 Blood Pressure 1: 116/88 Code: 8480-6 BMI: 33.6 Code: 57956-5 Heart Rate 1: 76 bpm Height: 5'4" Respiratory Rate: 20 bpm Temperature: 36 .8 (C) / 98.3 (F) Weight: 196 lbs 06/24/2012 Blood Pressure 1: 124/80 Code: 8480-6 BMI: 34.3 Code: 16317-1 Heart Rate 1: 72 bpm Height: 5'4" SpO2: 96% Temperature: 36.3 (C) / 97.3 (F) Weight: 200 lbs 05/20/2012 Blood Pressure 1: 116/88 Code: 8480-6 BMI: 33.8 Code: 36295-3 Heart Rate 1: 80 bpm Height: 5'4" Respiratory Rate: 22 bpm Temperature: 36 .9 (C) / 98.4 (F) Weight: 197 lbs 05/08/2012 Blood Pressure 1: 128/86 Code: 8480-6 BMI: 33.8 Code: 34151-2 Heart Rate 1: 76 bpm Height: 5'4" Respiratory Rate: 26 bpm SpO2: 95% Tempera ture: 36.1 (C) / 97.0 (F) Weight: 197 lbs 04/22/2012 Blood Pressure 1: 106/64 Code: 8480-6 BMI: 33.8 Code: 47695-2 Heart Rate 1: 70 bpm Height: 5'4" Temperature: 36.1 (C) / 97.0 (F) Weight: 197 lbs 02/13/2012 Blood Pressure 1: 126/82 Code: 8480-6 BMI: 34.7 Code: 37182-6 Heart Rate 1: 64 bpm Height: 5'4" Respiratory Rate: 20 bpm Temperature: 36 .6 (C) / 97.8 (F) Weight: 202 lbs 01/28/2012 Blood Pressure 1: 116/80 Code: 8480-6 BMI: 34.7 Code: 29626-9 Heart Rate 1: 76 bpm Height: 5'4" Respiratory Rate: 20 bpm Temperature: 36 .8 (C) / 98.3 (F) Weight: 202 lbs 12/26/2011 Blood Pressure 1: 132/82 Code: 8480-6 BMI: 36.0 Code: 50248-0 Heart Rate 1: 68 bpm Height: 5'4" Respiratory Rate: 22 bpm Temperature: 36 .7 (C) / 98.0 (F) Weight: 210 lbs 11/14/2011 Blood Pressure 1: 124/80 Code: 8480-6 BMI: 36.4 Code: 33906-0 Heart Rate 1: 76 bpm Height: 5'4" Respiratory Rate: 20 bpm Temperature: 36 .8 (C) / 98.2 (F) Weight: 212 lbs 09/12/2011 Blood Pressure 1: 108/74 Code: 8480-6 BMI: 37.1 Code: 37164-2 Heart Rate 1: 72 bpm Height: 5'4" Respiratory Rate: 20 bpm Temperature: 37 .0 (C) / 98.6 (F) Weight: 216 lbs 08/15/2011 Blood Pressure 1: 122/80 Code: 8480-6 BMI: 36.9 Code: 53759-1 Heart Rate 1: 76 bpm Height: 5'4" Respiratory Rate: 20 bpm Temperature: 36 .2 (C) / 97.1 (F) Weight: 215 lbs 08/09/2011 Blood Pressure 1: 112/78 Code: 8480-6 BMI: 36.9 Code: 56773-5 Heart Rate 1: 68 bpm Height: 5'4" Respiratory Rate: 20 bpm Temperature: 36 .7 (C) / 98.0 (F) Weight: 215 lbs 07/03/2011 Blood Pressure 1: 140/94 Code: 8480-6 BMI: 36.2 Code: 09653-3 Heart Rate 1: 68 bpm Height: 5'4" Temperature: 36.0 (C) / 96.8 (F) Weight: 211 lbs 06/04/2011 Blood Pressure 1: 124/70 Code: 8480-6 BMI: 36.7 Code: 57329-7 Heart Rate 1: 68 bpm Height: 5'4" Respiratory Rate: 20 bpm Temperature: 36 .6 (C) / 97.9 (F) Weight: 214 lbs 05/03/2011 Blood Pressure 1: 130/76 Code: 8480-6 BMI: 36.4 Code: 01988-1 Heart Rate 1: 74 bpm Height: 5'5" Temperature: 36.2 (C) / 97.2 (F) Weight: 219 lbs 04/05/2011 Blood Pressure 1: 124/86 Code: 8480-6 BMI: 35.9 Code: 53658-4 Heart Rate 1: 76 bpm Height: 5'6" Respiratory Rate: 22 bpm Temperature: 36 .3 (C) / 97.3 (F) Weight: 219 lbs 03/08/2011 Blood Pressure 1: 112/78 Code: 8480-6 BMI: 35.1 Code: 51486-8 Heart Rate 1: 80 bpm Height: 5'6" Respiratory Rate: 26 bpm Temperature: 36 .9 (C) / 98.4 (F) Weight: 214 lbs 01/24/2011 Blood Pressure 1: 110/82 Code: 8480-6 BMI: 35.6 Code: 64326-3 Heart Rate 1: 80 bpm Height: 5'6" Temperature: 36.1 (C) / 97.0 (F) Weight: 217 lbs 01/02/2011 Blood Pressure 1: 106/72 Code: 8480-6 BMI: 35.6 Code: 28740-7 Heart Rate 1: 76 bpm Height: 5'6" [...] 1: 120/74 Code: 8480-6 BMI: 35.9 Code: 37719-0 Heart Rate 1: 72 bpm Height: 5'5" Temperature: 36.3 (C) / 97.4 (F) Weight: 216 lbs 09/19/2010 Blood Pressure 1: 124/80 Code: 8480-6 BMI: 35.4 Code: 22759-2 Heart Rate 1: 76 bpm Height: 5'5" [...] 1: 122/78 Code: 8480-6 BMI: 37.4 Code: 87295-1 Heart Rate 1: 84 bpm Height: 5'5" [...] up 10/30/2017 follow up 10/23/2017 [facility] fwup from [facility] Annual Checkup 09/17/2017 Wellness [...] up 10/26/2015 ER visit from at [facility] [place] for COPD Exacerbation follow up 10/05/2015 ER [...] up 10/18/[address] Medrano last w [facility], having increased allergy symptoms. Would like steroid [...] 1 month f/u follow up 12/07/2009 from [facility], done with PT--finished about 2wks ago [...] R06.1] Diagnosis: COUGH[ICD10: R05] Belia REID DO [facility] CPT-4: 96330 05/06/2019 ([id number]) OFFICE/OUTPATIENT VISIT EST Diagnosis: Stridor[ICD10: R06.1] Diagnosis: Muscle, jerky movements (uncontrolled)[ICD10: G25.5] Belia REID [facility] [place] [facility] ([facility]: [place]) [facility] CPT-4: 52950 04/29/2019 ([id number]) OFFICE/OUTPATIENT VISIT EST Diagnosis: Upper respiratory infection[ICD10: J06.9] Diagnosis: Flank pain[ICD10: R10.9] Diagnosis: Weight gain[ICD10: R63.5] Pattie AMBRIZ [facility] [place] [facility] ([facility]: [place]) [facility] CPT-4: 29724 04/16/2019 ([id number]) OFFICE/OUTPATIENT VISIT EST Diagnosis: Generalized pruritus[ICD10: L29.9] Belia REID [facility] [place] [facility] ([facility]: [place]) [facility] CPT-4: 18216 04/08/2019 ([id number]) OFFICE/OUTPATIENT VISIT EST Diagnosis: Acute bursitis of left shoulder[ICD10: M75.52] Diagnosis: Cervicalgia[ICD10: M54.2] Diagnosis: Chest wall pain[ICD10: R07.89] Belia SMITH [facility] CPT-4: 41032 01/22/2019 ([id number]) OFFICE/OUTPATIENT VISIT EST Diagnosis: Abdominal pain[ICD10: R10.9] Diagnosis: Pyelonephritis[ICD10: N12] Pattie DOMINGUEZ [facility] CPT-4: 61815 01/07/2019 ([id number]) OFFICE/OUTPATIENT VISIT EST Diagnosis: Low back pain[ICD10: M54.5] Diagnosis: Left lumbar radiculopathy[ICD10: M54.16] Diagnosis: Left flank pain[ICD10: R10.9] Diagnosis: Left lower quadrant pain[ICD10: R10.32] Diagnosis: FLU VACCINE[ICD10: Z23] Belia FREDERICK [facility] CPT-4: 07943 12/24/2018 ([id number]) OFFICE/OUTPATIENT VISIT EST Diagnosis: Migraine, unspecified, not intractable, without status migrainosus[ICD10: G43.909] Diagnosis: Fibromyalgia[ICD10: M79.7] Belia DOMINGUEZ [facility] CPT-4: 66685 11/20/2018 ([id number]) OFFICE/OUTPATIENT VISIT EST Diagnosis: Migraine, unspecified, intractable, without status migrainosus[ICD10: G43.919] Diagnosis: Acute sinusitis, unspecified[ICD10: J01.90] Pattie REID DO [facility] CPT-4: 42639 11/04/2018 ([id number]) OFFICE/OUTPATIENT VISIT EST Diagnosis: Pain in left wrist[ICD10: M25.532] Diagnosis: Other dorsalgia[ICD10: M54.89] Pattie REID DO [facility] CPT-4: 85377 09/08/2018 ([id number]) OFFICE/OUTPATIENT VISIT EST Diagnosis: Acute stress reaction[ICD10: F43.0] Diagnosis: Pruritus, unspecified[ICD10: L29.9] 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, 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] Belia REID [facility] CPT-4: 55385 08/20/2018 ([id number]) OFFICE/OUTPATIENT VISIT EST Diagnosis: Hypotension due to drugs[ICD10: I95.2] Diagnosis: Paroxysmal atrial fibrillation[ICD10: I48.0] Diagnosis: Localized edema[ICD10: R60.0] Belia REID DO [facility] CPT-4: 96493 06/19/2018 ([id number]) OFFICE/OUTPATIENT VISIT EST Diagnosis: Generalized hyperhidrosis[ICD10: R61] Diagnosis: Essential (primary) hypertension[ICD10: I10] Diagnosis: Supraventricular tachycardia[ICD10: I47.1] Belia REID DO [facility] CPT-4: 19131 06/09/2018 ([id number]) OFFICE/OUTPATIENT VISIT EST Diagnosis: Stridor[ICD10: R06.1] Diagnosis: Dependence on supplemental oxygen[ICD10: Z99.81] Diagnosis: Weakness[ICD10: R53.1] Diagnosis: Supraventricular tachycardia[ICD10: I47.1] Belia REID DO [facility] CPT-4: 46647 05/21/2018 ([id number]) OFFICE/OUTPATIENT VISIT EST Diagnosis: Cervical disc disorder with radiculopathy, unspecified cervical region[ICD10: M50.10] Belia REID DO [facility] CPT-4: 56510 04/16/2018 ([id number]) OFFICE/OUTPATIENT VISIT EST Diagnosis: Migraine, unspecified, intractable, without status migrainosus[ICD10: G43.919] Diagnosis: Fibromyalgia[ICD10: M79.7] Pattie DOMINGUEZ [facility] CPT-4: 30642 04/01/2018 ([id number]) NURSE/OUTPATIENT VISIT EST Diagnosis: Hematuria, unspecified[ICD10: R31.9] Diagnosis: Dysuria[ICD10: R30.0] Belia REID [facility] [place] ([facility]: [place]) [facility] CPT-4: 44325 03/17/2018 ([id number]) OFFICE/OUTPATIENT VISIT EST Diagnosis: Erythema intertrigo[ICD10: L30.4] Diagnosis: Chronic obstructive pulmonary disease with (acute) exacerbation[ICD10: J44.1] Diagnosis: Type 2 diabetes mellitus with hyperglycemia[ICD10: E11.65] Belia REID [facility] [place] ([facility]: [place]) [facility] CPT-4: 55216 03/06/2018 ([id number]) OFFICE/OUTPATIENT VISIT EST Diagnosis: Cervicalgia[ICD10: M54.2] Pattie AMBRIZ [facility] [place] ([facility]: [place]) [facility] CPT-4: 15374 02/05/2018 ([id number]) OFFICE/OUTPATIENT VISIT EST Diagnosis: Candidiasis of skin and nail[ICD10: B37.2] Diagnosis: Cervicalgia[ICD10: M54.2] Pattie AMBRIZ [facility] [place] [facility] ([facility]: [place]) [facility] CPT-4: 45881 01/20/2018 ([id number]) OFFICE/OUTPATIENT VISIT EST Diagnosis: Pain in thoracic spine[ICD10: M54.6] Diagnosis: Radiculopathy, thoracic region[ICD10: M54.14] Belia REID [facility] [place] [facility] ([facility]: [place]) [facility] CPT-4: 32868 12/25/2017 ([id number]) OFFICE/OUTPATIENT VISIT EST Diagnosis: Pain in thoracic spine[ICD10: M54.6] Diagnosis: Other muscle spasm[ICD10: M62.838] Diagnosis: FLU VACCINE[ICD10: Z23] Diagnosis: PNEUMOCOCCAL VACCINE[ICD10: Z23] Belia REID DO [facility] CPT-4: 53271 12/17/2017 ([id number]) OFFICE/OUTPATIENT VISIT EST Diagnosis: Chronic obstructive pulmonary disease with (acute) exacerbation[ICD10: J44.1] Belia REID DO [facility] CPT- 4: 66114 10/30/2017 ([id number]) OFFICE/OUTPATIENT VISIT EST Diagnosis: Chronic obstructive pulmonary disease with acute lower respiratory infection[ICD10: J44.0] Diagnosis: Mild intermittent asthma with (acute) exacerbation[ICD10: J45.21] Belia REID DO [facility] CPT-4: 10285 10/23/2017 ([id number]) NURSE/OUTPATIENT VISIT EST Diagnosis: Migraine, unspecified, not intractable, without status migrainosus[ICD10: G43.909] Belia REID [facility] CPT - 4: 51812 08/26/2017 ([id number]) OFFICE/OUTPATIENT VISIT EST Diagnosis: Urinary tract infection, site not specified[ICD10: N39.0] Diagnosis: Encounter for screening for osteoporosis[ICD10: Z13.820] Diagnosis: Encounter for screening mammogram for malignant neoplasm of breast[ICD10: Z12.31] Diagnosis: Acute bronchitis, unspecified[ICD10: J20.9] Pattie REID DO [facility] CPT-4: 95857 07/19/2017 ([id number]) OFFICE/OUTPATIENT VISIT EST Diagnosis: Rash and other nonspecific skin eruption[ICD10: R21] Pattie REID DO [facility] CPT-4: 67918 05/29/2017 ([id number]) OFFICE/OUTPATIENT VISIT EST Diagnosis: Diarrhea, unspecified[ICD10: R19.7] Diagnosis: Tinea corporis[ICD10: B35.4] Diagnosis: Tinea cruris[ICD10: B35.6] Diagnosis: Migraine, unspecified, not intractable, without status migrainosus[ICD10: G43.909] Belia REID DO [facility] CPT - 4: 20678 05/07/2017 ([id number]) OFFICE/OUTPATIENT VISIT EST Diagnosis: Stridor[ICD10: R06.1] Diagnosis: Chronic obstructive pulmonary disease with (acute) exacerbation[ICD10: J44.1] Belia REID DO [facility] CPT- 4: 33374 03/18/2017 ([id number]) OFFICE/OUTPATIENT VISIT EST Diagnosis: Type 2 diabetes mellitus with hyperglycemia[ICD10: E11.65] Belia REID DO [facility] CPT-4: 03697 02/27/2017 OFFICE/OUTPATIENT VISIT EST Diagnosis: Type 2 diabetes mellitus with hyperglycemia[ICD10: E11.65] Pattie REID [facility] ([facility]: [place]) [facility] CPT-4: 54750 02/22/2017 ([id number]) OFFICE/OUTPATIENT VISIT EST Diagnosis: Urinary tract infection, site not specified[ICD10: N39.0] Diagnosis: Pneumonia, unspecified organism[ICD10: J18.9] Diagnosis: Type 2 diabetes mellitus with hyperglycemia[ICD10: E11.65] Belia REID [facility] CPT-4: 12667 01/23/2017 ([id number]) OFFICE/OUTPATIENT VISIT EST Diagnosis: Type 2 diabetes mellitus with hyperglycemia[ICD10: E11.65] Diagnosis: Localized edema[ICD10: R60.0] Diagnosis: PNEUMOCOCCAL VACCINE[ICD10: Z23] Diagnosis: FLU VACCINE[ICD10: Z23] Belia FREDERICK [facility] CPT-4: 93717 12/20/2016 OFFICE/OUTPATIENT VISIT EST Diagnosis: Pain in thoracic spine[ICD10: M54.6] Diagnosis: Low back pain[ICD10: M54.5] Diagnosis: Cervicalgia[ICD10: M54.2] Diagnosis: Cough[ICD10: R05] Celeste Ferreira BELIA REID [facility] [facility] ([facility]: [place]) [facility] CPT-4: 12902 10/08/2016 ([id number]) OFFICE/OUTPATIENT VISIT EST Diagnosis: Primary insomnia[ICD10: F51.01] Diagnosis: Migraine, unspecified, not intractable, without status migrainosus[ICD10: G43.909] Diagnosis: Type 2 diabetes mellitus with hyperglycemia[ICD10: E11.65] Belia REID DO [facility] CPT-4: 77161 09/19/2016 ([id number]) OFFICE/OUTPATIENT VISIT EST Diagnosis: Migraine, unspecified, not intractable, without status migrainosus[ICD10: G43.909] Diagnosis: Generalized abdominal pain[ICD10: R10.84] Diagnosis: Cough[ICD10: R05] Belia REID DO [facility] CPT-4: 88653 08/20/2016 ([id number]) OFFICE/OUTPATIENT VISIT EST Diagnosis: Chronic obstructive pulmonary disease, unspecified[ICD10: J44.9] Diagnosis: Stridor[ICD10: R06.1] Belia REID DO [facility] CPT-4: 83897 06/19/2016 ([id number]) OFFICE/OUTPATIENT VISIT EST Diagnosis: Chronic obstructive pulmonary disease, unspecified[ICD10: J44.9] Diagnosis: Personal history of urinary (tract) infections[ICD10: Z87.440] Belia REID DO [facility] CPT-4: 65452 06/04/2016 ([id number]) OFFICE/OUTPATIENT VISIT EST Diagnosis: Stridor[ICD10: R06.1] Diagnosis: Chronic obstructive pulmonary disease with acute lower respiratory infection[ICD10: J44.0] Diagnosis: Other specified diseases of intestine[ICD10: K63.89] Diagnosis: Cystitis, unspecified without hematuria[ICD10: N30.90] Belia REID DO [facility] CPT-4: 67156 05/02/2016 ([id number]) OFFICE/OUTPATIENT VISIT EST Diagnosis: Fibromyalgia[ICD10: M79.7] Diagnosis: Urinary tract infection, site not specified[ICD10: N39.0] Belia REID DO [facility] CPT-4: 47162 04/03/2016 ([id number]) OFFICE/OUTPATIENT VISIT EST Diagnosis: Unspecified asthma, uncomplicated[ICD10: J45.909] Diagnosis: Cough[ICD10: R05] Lidia CORNELLLINE Yuridia REID [facility] [place] ([place]: [place]) [facility] T-4: 67978 02/29/2016 ([id number]) OFFICE/OUTPATIENT VISIT EST Diagnosis: Migraine, unspecified, intractable, without status migrainosus[ICD10: G43.919] Diagnosis: Urinary tract infection, site not specified[ICD10: N39.0] Belia TomlinsonMayda ANUSHKA M[facility] [place] ([place]: [place]) [facility] CPT-4: 68526 02/02/2016 ([id number]) OFFICE/OUTPATIENT VISIT EST Diagnosis: Urinary tract infection, site not specified[ICD10: N39.0] Diagnosis: Unspecified abdominal pain[ICD10: R10.9] Diagnosis: Pain in thoracic spine[ICD10: M54.6] Diagnosis: Type 2 diabetes mellitus with diabetic neuropathic arthropathy[ICD10: E11.610] Belia HSUQUELINE BushraMayda ANUSHKA [facility] [place] ([place]: [place]) [facility] CPT-4: 55612 12/05/2015 ([id number]) OFFICE/OUTPATIENT VISIT EST Diagnosis: Chronic obstructive pulmonary disease with (acute) exacerbation[ICD10: J44.1] Diagnosis: Migraine, unspecified, not intractable, without status migrainosus[ICD10: G43.909] Lidia HSUQUELINE BushraMayda ANUSHKA [facility] [place] ([place]: [place]) [facility] CPT -4: 60576 10/26/2015 ([id number]) OFFICE/OUTPATIENT VISIT EST Diagnosis: Hematuria, unspecified[ICD10: R31.9] Diagnosis: Urinary tract infection, site not specified[ICD10: N39.0] Lidia HSUQUELINE BushraMayda ANUSHKA [facility] [place] ([place]: [place]) [facility] CPT-4: 43982 10/05/2015 OFFICE/OUTPATIENT VISIT EST Diagnosis: Chronic obstructive pulmonary disease, unspecified[ICD10: J44.9] Diagnosis: Muscle weakness (generalized)[ICD10: M62.81] Diagnosis: Polyneuropathy, unspecified[ICD10: G62.9] Diagnosis: Other intervertebral disc degeneration, 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] Diagnosis: Fibromyalgia[ICD10: M79.7] Beliaclayton HSUQUELINE Yuridia DAILEYER M[facility] [place] ([place]: [place]) [facility] CPT-4: 11092 09/15/2015 ([id number]) OFFICE/OUTPATIENT VISIT EST Diagnosis: Disorientation, unspecified[ICD10: R41.0] Diagnosis: Headache[ICD10: R51] Diagnosis: Paresthesia of skin[ICD10: R20.2] Lidia REID DO [facility] CPT-4: 81936 08/24/2015 ([id number]) OFFICE/OUTPATIENT VISIT EST Diagnosis: Type 2 diabetes mellitus with hyperglycemia[ICD10: E11.65] Diagnosis: Chronic obstructive pulmonary disease with acute lower respiratory infection[ICD10: J44.0] Belia REID DO [facility] CPT-4: 97234 07/05/2015 ([id number]) OFFICE/OUTPATIENT VISIT EST Diagnosis: Mild intermittent asthma with (acute) exacerbation[ICD10: J45.21] Diagnosis: Chronic obstructive pulmonary disease, unspecified[ICD10: J44.9] Belia REID [facility] CPT-4: 15174 06/06/2015 ([id number]) OFFICE/OUTPATIENT VISIT EST Diagnosis: Chronic obstructive pulmonary disease with (acute) exacerbation[ICD10: J44.1] Lidia REID [facility] CPT- 4: 85511 05/23/2015 ([id number]) OFFICE/OUTPATIENT VISIT EST Diagnosis: Type 2 diabetes mellitus with hyperglycemia[ICD10: E11.65] Diagnosis: Functional dyspepsia[ICD10: K30] Belia REID DO [facility] CPT-4: 44472 05/05/2015 ([id number]) OFFICE/OUTPATIENT VISIT EST Diagnosis: Type 2 diabetes mellitus with hyperglycemia[ICD10: E11.65] Diagnosis: Glycosuria[ICD10: R81] Diagnosis: Urinary tract infection, site not specified[ICD10: N39.0] Belia REID DO [facility] CPT-4: 99112 03/30/2015 ([id number]) OFFICE/OUTPATIENT VISIT EST Diagnosis: Generalized abdominal pain[ICD10: R10.84] Diagnosis: Diarrhea, unspecified[ICD10: R19.7] Diagnosis: Urinary tract infection, site not specified[ICD10: N39.0] Diagnosis: Gastro-esophageal reflux disease without esophagitis[ICD10: K21.9] Belia REID [facility] CPT-4: 65899 02/03/2015 ([id number]) OFFICE/OUTPATIENT VISIT EST Diagnosis: Other specified noninflammatory disorders of vagina[ICD10: N89.8] Diagnosis: Follicular disorder, unspecified[ICD10: L73.9] Diagnosis: Functional dyspepsia[ICD10: K30] Diagnosis: FLU VACCINE[ICD10: Z23] Belia SMITH [facility] CPT-4: 00973 12/29/2014 ([id number]) OFFICE/OUTPATIENT VISIT EST 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] Diagnosis: RESTLESS LEGS SYNDROME[ICD9: 333.94] Diagnosis: MIGRAINE NOS/NOT INTRCBL[ICD9: 346.90] [facility] CPT-[facility]: 12071 09/02/2014 ([id number]) OFFICE/OUTPATIENT VISIT EST Diagnosis: Cervical radiculopathy[ICD9: 723.4] Diagnosis: Cervicalgia[ICD9: 723.1] Diagnosis: Degenerative disc disease, cervical[ICD9: 722.4] 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I[ICD9: 250.00] [facility]ia [facility] CPT-[facility]: 86324 04/01/2014 OFFICE/OUTPATIENT VISIT EST Diagnosis: Reactive airway disease[ICD9: 493.90] Belia HSUPAUL LUBNA BushraMayda [facility] CPT-4: 43337 03/16/2014 ([id number]) OFFICE/OUTPATIENT VISIT EST Diagnosis: BRONCHITIS, ACUTE[ICD9: 466.0] Diagnosis: Reactive airway disease[ICD9: 493.90] Belia Reid MINAL LUBNA BusrhaMayda [facility] CPT-4: 91370 03/09/2014 OFFICE/OUTPATIENT VISIT EST Diagnosis: BRONCHITIS, ACUTE[ICD9: 466.0] Diagnosis: WHEEZING[ICD9: 786.07] Huong Osborne BELIA BushraMayda RALF Peguero [facility] CPT-4: 57012 03/03/2014 OFFICE/OUTPATIENT VISIT EST Diagnosis: BRONCHITIS, ACUTE[ICD9: 466.0] Diagnosis: WHEEZING[ICD9: 786.07] Huong Peguero [facility] CPT-4: 40787 03/01/2014 ([id number]) OFFICE/OUTPATIENT VISIT EST Diagnosis: GERD[ICD9: 530.81] Diagnosis: ARTHRALGIA-MULTIPLE SITES[ICD9: 719.49] Diagnosis: LUMB/LUMBOSAC DISC DEGEN[ICD9: 722.52] Diagnosis: - I - FIBROMYALGIA[ICD9: 729.1] Belia Humphriesbeckyannie CORNELLBELIA BushraMayda ANUSHKA [facility] CPT-4: 82567 02/09/2014 ([id number]) OFFICE/OUTPATIENT VISIT EST Diagnosis: Peptic ulcer disease[ICD9: 533.90] Diagnosis: RESTLESS LEGS SYNDROME[ICD9: 333.94] Diagnosis: Neuropathy[ICD9: 355.9] Belia Humphriesbeckyannie CORNELLBELIA BushraMayda LUIS FREDERICK [facility] CPT-4: 07190 12/23/2013 ([id number]) OFFICE/OUTPATIENT VISIT EST Diagnosis: URINARY TRACT INFECTION[ICD9: 599.0] Belia Humphriesbeckyannie CORNELL CLAYTON BushraMayda ANUSHKA [facility] CPT-4: 09920 10/30/2013 ([id number]) OFFICE/OUTPATIENT VISIT EST Diagnosis: Flank pain[ICD9: 789.00] Belia Humphriesbeckyannie CORNELLBELIA BushraMayda [facility] CPT-4: 32778 10/21/2013 ([id number]) OFFICE/OUTPATIENT VISIT EST Diagnosis: INFLAMED SEBORR KERATOS[ICD9: 702.11] Diagnosis: Brachioradial pruritus[ICD9: 698.9] Diagnosis: ASTHMA NOS[ICD9: 493.90] Belia Humphriesbeckyannie CORNELLBELIA BushraMayda KIESHA POOLE [facility] CPT-4: 75729 10/05/2013 ([id number]) OFFICE/OUTPATIENT VISIT EST Diagnosis: HYPERTENSION[ICD9: 401.9] Diagnosis: - I - FIBROMYALGIA[ICD9: 729.1] Diagnosis: DIZZINESS/VERTIGO[ICD9: 780.4] Diagnosis: MIGRAINE NOS/NOT INTRCBL[ICD9: 346.90] Diagnosis: Diabetic peripheral neuropathy[ICD9: 250.60] Diagnosis: Flank pain[ICD9: 789.00] Belia BRUNSON Yuridia POOLE [facility] CPT-4: 62249 08/04/2013 ([id number]) OFFICE/OUTPATIENT VISIT EST Diagnosis: ALLERGIC RHINITIS[ICD9: 477.9] Belia CORNELLLINE Bushra REID [facility] CPT-4: 46279 07/13/2013 OFFICE/OUTPATIENT VISIT EST Diagnosis: URINARY TRACT INFECTION[ICD9: 599.0] Huong De LunaFidepool REID [facility] CPT-4: 54676 07/03/2013 OFFICE/OUTPATIENT VISIT EST Diagnosis: HYPERTENSION[ICD9: 401.9] Diagnosis: URINARY TRACT INFECTION[ICD9: 599.0] Diagnosis: BACKACHE[ICD9: 724.5] Diagnosis: URINARY INCONTINENCE[ICD9: 788.30] Huong De LunaFidepool BASS MARIE Yuridia [facility] CPT-[facility]: 98275 05/27/2013 ([id number]) OFFICE/OUTPATIENT VISIT EST Diagnosis: Flank pain[ICD9: 789.00] Belia Zacharybeckyannie CORNELLBELIA BushraMayda [facility] CPT-4: 12907 05/25/2013 ([id number]) OFFICE/OUTPATIENT VISIT EST Diagnosis: B-COMPLEX DEFIC NEC[ICD9: 266.2] Belia Anushka CORNELLLINE BushraMayda [facility] CPT-4: 86090 05/04/2013 ([id number]) OFFICE/OUTPATIENT VISIT EST Diagnosis: ALLERGIC RHINITIS[ICD9: 477.9] Diagnosis: Vitamin B12 deficiency[ICD9: 266.2] Belia THOMPSON Yuridia [facility] CPT-4: 11292 04/17/2013 ([id number]) OFFICE/OUTPATIENT VISIT EST 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I[ICD9: 250.00] Diagnosis: URINARY TRACT INFECTION[ICD9: 599.0] Diagnosis: DIZZINESS/VERTIGO[ICD9: 780.4] Diagnosis: DIARRHEA[ICD9: 787.91] Belia BRUNSON BushraMayda ZACHARYBECKYReggie [facility] CPT-4: 54096 04/06/2013 ([id number]) OFFICE/OUTPATIENT VISIT EST Diagnosis: URINARY TRACT INFECTION[ICD9: 599.0] Diagnosis: URINARY RETENTION[ICD9: 788.20] Belia REID [facility] CPT-4: 76376 11/10/2012 ([id number]) OFFICE/OUTPATIENT VISIT EST Diagnosis: TACHYCARDIA[ICD9: 785.0] Diagnosis: SYNCOPE AND COLLAPSE[ICD9: 780.2] Diagnosis: CONSCIOUSNS ALTERAT NEC[ICD9: 780.09] Belia [facility] CPT-4: 58733 09/02/2012 OFFICE/OUTPATIENT VISIT EST Diagnosis: TACHYCARDIA[ICD9: 785.0] Diagnosis: SYNCOPE AND COLLAPSE[ICD9: 780.2] Belia REID [facility] CPT-4: 73390 08/04/2012 ([id number]) OFFICE/OUTPATIENT VISIT EST Diagnosis: Loss of consciousness[ICD9: 780.09] Diagnosis: Tachycardia[ICD9: 785.0] Diagnosis: MALAISE AND FATIGUE[ICD9: 780.79] Belia [facility] CPT-4: 48446 07/21/2012 ([id number]) OFFICE/OUTPATIENT VISIT EST Diagnosis: BRONCHITIS, ACUTE[ICD9: 466.0] Diagnosis: ASTHMA NOS[ICD9: 493.90] Belia POOLE [facility] CPT-4: 76003 07/02/2012 ([id number]) OFFICE/OUTPATIENT VISIT EST Diagnosis: CEPHALGIA[ICD9: 784.0] Belia Peguero [facility] CPT-4: 88786 06/25/2012 ([id number]) OFFICE/OUTPATIENT VISIT EST Diagnosis: GERD[ICD9: 530.81] Diagnosis: DIARRHEA[ICD9: 787.91] Diagnosis: URINARY TRACT INFECTION[ICD9: 599.0] Diagnosis: ASTHMA NOS[ICD9: 493.90] Diagnosis: ALLERGIC RHINITIS[ICD9: 477.9] Belia REID [facility] CPT-4: 95387 06/24/2012 ([id number]) OFFICE/OUTPATIENT VISIT EST Diagnosis: MIGRAINE NOS/NOT INTRCBL[ICD9: 346.90] Diagnosis: TREMOR NEC[ICD9: 333.1] Diagnosis: CHRONIC PAIN SYNDROME[ICD9: 338.4] Belia Orebeckyannie KRAIGKIMI MARIE BushraMayda ANUSHKA [facility] [place] ([facility]: [place]) [facility] CPT-4: 33922 05/20/2012 ([id number]) OFFICE/OUTPATIENT VISIT EST Diagnosis: DIZZINESS/VERTIGO[ICD9: 780.4] Diagnosis: PALPITATIONS[ICD9: 785.1] Diagnosis: TREMOR NEC[ICD9: 333.1] Diagnosis: ANXIETY STATE NOS[ICD9: 300.00] Diagnosis: POSTTRAUMATIC STRESS DISORDER[ICD9: 309.81] Belia Humphriesnilson BRUNSON BushraMayda ANUSHKA [facility] [place] ([place]: [place]) [facility] CPT-4: 03301 05/08/2012 ([id number]) OFFICE/OUTPATIENT VISIT EST Diagnosis: MIGRAINE NOS/NOT INTRCBL[ICD9: 346.90] Diagnosis: FIBROMYALGIA[ICD9: 729.1] Diagnosis: SYNCOPE AND COLLAPSE[ICD9: 780.2] Diagnosis: Diabetic peripheral neuropathy[ICD9: 250.60] Belia Smithannie BELIA BushraMayda ANUSHKA [facility] [place] ([place]: [place]) [facility] CPT-4: 83448 04/22/2012 OFFICE/OUTPATIENT VISIT EST Diagnosis: ROTATOR CUFF DIS NEC[ICD9: 726.19] Diagnosis: JOINT PAIN-SHLDER[ICD9: 719.41] Diagnosis: DYSPEPSIA[ICD9: 536.8] Belia Zacharynilson BELIA BushraMayda RALF Peguero [employer] CPT-4: 99115 02/13/2012 ([id number]) OFFICE/OUTPATIENT VISIT EST Diagnosis: MIGRAINE NOS/NOT INTRCBL[ICD9: 346.90] Diagnosis: GERD[ICD9: 530.81] Diagnosis: DYSPEPSIA[ICD9: 536.8] Belia Zacharynilson BRUNSON BushraMayda RALF Peguero [facility] [place] ([place]: [place]) [facility] CPT-4: 48232 01/28/2012 OFFICE/OUTPATIENT VISIT EST Diagnosis: CEPHALGIA[ICD9: 784.0] Diagnosis: MIGRAINE NOS/NOT INTRCBL[ICD9: 346.90] Diagnosis: GERD[ICD9: 530.81] Diagnosis: INSOMNIA NOS[ICD9: 780.52] Belia BRUNSON BushraMayda RAND DAILEYER [facility] [place] ([place]: [place]) [facility] CPT-4: 48260 12/26/2011 ([id number]) OFFICE/OUTPATIENT VISIT EST Diagnosis: CEPHALGIA[ICD9: 784.0] Diagnosis: MIGRAINE NOS/NOT INTRCBL[ICD9: 346.90] Diagnosis: MALAISE AND FATIGUE[ICD9: 780.79] Diagnosis: FIBROMYALGIA[ICD9: 729.1] Diagnosis: ALLERGIC RHINITIS[ICD9: 477.9] Belia REID [facility] CPT-4: 60471 11/14/2011 ([id number]) OFFICE/OUTPATIENT VISIT EST Diagnosis: MALAISE AND FATIGUE[ICD9: 780.79] Diagnosis: MUSCLE WEAKNESS-GENERAL[ICD9: 728.87] Diagnosis: MIGRAINE NOS/NOT INTRCBL[ICD9: 346.90] Diagnosis: JOINT PAIN-SHLDER[ICD9: 719.41] Belia REID [facility] CPT-4: 05249 09/12/2011 ([id number]) OFFICE/OUTPATIENT VISIT EST Diagnosis: CONCUSSION[ICD9: 850.9] Diagnosis: Ataxia[ICD9: 781.3] Diagnosis: DIZZINESS/VERTIGO[ICD9: 780.4] Belia REID [facility] CPT-4: 79053 08/15/2011 ([id number]) OFFICE/OUTPATIENT VISIT EST Diagnosis: THROMBOPHLEBITIS[ICD9: 451.9] Diagnosis: Subacromial bursitis[ICD9: 726.19] Diagnosis: ALLERGIC RHINITIS[ICD9: 477.9] Diagnosis: Lipoma[ICD9: 214.9] Belia REID [facility] CPT-4: 50955 08/09/2011 ([id number]) OFFICE/OUTPATIENT VISIT EST Diagnosis: THROMBOPHLEBITIS[ICD9: 451.9] Diagnosis: Arm pain[ICD9: 729.5] Diagnosis: Clostridium difficile colitis[ICD9: 008.45] Diagnosis: URINARY TRACT INFECTION[ICD9: 599.0] Belia REID [facility] CPT-4: 44840 07/03/2011 ([id number]) OFFICE/OUTPATIENT VISIT EST Diagnosis: ARTHRALGIA-MULTIPLE SITES[ICD9: 719.49] Diagnosis: Muscle cramp[ICD9: 729.82] Diagnosis: INSOMNIA NOS[ICD9: 780.52] Belia CORNELLLINE [facility]idia [facility]PT-[facility]: 64675 06/04/2011 OFFICE/OUTPATIENT VISIT EST Diagnosis: Headache[ICD9: 784.0] Diagnosis: Allergic rhinitis[ICD9: 477.9] [facility]: 42572 05/03/2011 OFFICE/OUTPATIENT VISIT EST Diagnosis: LUMB/LUMBOSAC DISC DEGEN[ICD9: 722.52] Diagnosis: MIGRAINE NOS/NOT INTRCBL[ICD9: 346.90] Diagnosis: CHRONIC PAIN SYNDROME[ICD9: 338.4] Diagnosis: RESTLESS LEGS SYNDROME[ICD9: 333.94] Belia Zacharybeckyannie HSUROBERTO ARNOLD Yuridia [facility]: 40740 04/05/2011 OFFICE/OUTPATIENT VISIT EST Diagnosis: MIGRAINE NOS/NOT INTRCBL[ICD9: 346.90] Diagnosis: GERD[ICD9: 530.81] [facility]: 75259 03/08/2011 OFFICE/OUTPATIENT VISIT EST Diagnosis: URINARY TRACT INFECTION[ICD9: 599.0] Diagnosis: Vertigo[ICD9: 780.4] Diagnosis: GERD[ICD9: 530.81] [facility] CPT-[facility]: 66430 01/24/2011 OFFICE/OUTPATIENT VISIT EST Diagnosis: Hypotension[ICD9: 458.9] Diagnosis: Syncopal episodes[ICD9: 780.2] Diagnosis: MIGRAINE NOS/NOT INTRCBL[ICD9: 346.90] Diagnosis: MALAISE AND FATIGUE[ICD9: 780.79] Belia Zacharynilson Paredes Yuridia [facility] CPT-[facility]: 02586 01/02/2011 OFFICE/OUTPATIENT VISIT EST Diagnosis: Tinea cruris[ICD9: 110.3] Diagnosis: Intertrigo[ICD9: 695.89] Diagnosis: MIGRAINE NOS/NOT INTRCBL[ICD9: 346.90] Belia COKER Yuridia [facility] CPT-[facility]: 53782 12/07/2010 OFFICE/OUTPATIENT VISIT EST Diagnosis: PALPITATIONS[ICD9: 785.1] Diagnosis: ANXIETY STATE NOS[ICD9: 300.00] Belia Zacharybeckyannie BRUNSON [facility] CPT-4: 12337 11/16/2010 OFFICE/OUTPATIENT VISIT EST Diagnosis: URINARY TRACT INFECTION[ICD9: 599.0] Diagnosis: MIGRAINE NOS/NOT INTRCBL[ICD9: 346.90] Iraida Robert SONJA UEL[facility] CPT-4: 10936 11/02/2010 OFFICE/OUTPATIENT VISIT EST Diagnosis: ALLERGIC RHINITIS[ICD9: 477.9] Diagnosis: ANXIETY STATE NOS[ICD9: 300.00] Belia Zacharynilson BELIA [facility] CPT-4: 92051 10/18/2010 OFFICE/OUTPATIENT VISIT EST Belia Anushka [facility] CPT- 4: 05008 09/19/2010 OFFICE/OUTPATIENT VISIT EST Belia Zacharybeckyannie [facility]SON [facility] CPT- 4: 67378 09/06/2010 ([id number]) OFFICE/OUTPATIENT VISIT EST Belia Anushka CASILLAS UEL[facility] CPT-4: 75455 08/10/2010 ([id number]) OFFICE/OUTPATIENT VISIT EST Belia Anushka [place] UEL[facility] CPT-4: 94440 05/11/2010 ([id number]) OFFICE/OUTPATIENT VISIT, EST Belia HSU ROBERTOLINE [facility] CPT-4: 13181 04/06/2010 ([id number]) OFFICE/OUTPATIENT VISIT, EST Belia HSU QUELINE [facility] CPT-4: 73141 02/09/2010 ([id number]) OFFICE/OUTPATIENT VISIT, EST Belia HSU ROBERTOLINE [facility] CPT-4: 25343 01/05/2010 ([id number]) OFFICE/OUTPATIENT VISIT, EST Belia HSU ORBERTOLINE [facility] CPT-4: 38025 12/07/2009 ([id number]) OFFICE/OUTPATIENT VISIT, EST Beliaclayton REID DO [employer] CPT-4: 80185 11/08/2009 ([id number]) OFFICE/OUTPATIENT VISIT, EST Belia RAMOS CPT-4: 73232 10/24/2009 ([id number]) OFFICE/OUTPATIENT VISIT, EST Belia REID DO [facility] CPT-4: 04717 07/25/2009 ([id number]) OFFICE/OUTPATIENT VISIT, EST Belia REID DO [facility] CPT-4: 97687 05/26/2009 Plan of Care Planned Activity Notes Codes Status Date Visit Diagnosis Plan: COUGH Discussion: Check CT scan of chest ICD-9 : 786.2 ICD-10 : R05 05/06/2019 Visit Diagnosis Plan: Stridor Discussion: Add Trelagy 1 p daily Add Singulair May need to see new environmental services aide ICD-9 : 786.1 ICD-10 : R06.1 05/06/2019 Patient Education: Singulair- [employer] Coupon [id number] https://www.[employer]/OnGreen/resources/getResource/61/4800819o-h19t-28k1-mi Completed 05/06/2019 Care Plan: CT THORAX W/O DYE LOINC : 473 66-0 Pending 05/06/2019 Appointment: Belia Reid WPtel: [phone] [facility] US RESCHEDULED 04/30/2019 Visit Diagnosis Plan: Stridor [...] G25.5 04/29/2019 Appointment: Belia Reid WPtel: [phone] [facility] Hospital Follow Up 04/29/2019 Patient Education: Valium- [employer] Coupon [id number] https://www.[employer]/samplePLAYSTUDIOS/resources/getResource/61/[email or web address] Completed 04/29/2019 Visit Diagnosis Plan: Flank pain [...] ICD-10 : R63.5 04/16/2019 Appointment: Pattie Sotomayor [address] [place], [place] [id number] AC[facility] 04/16/2019 Patient Education: cyclobenzaprine- [employer] Coupon [id number] https://www.[employer]/OnGreen/resources/getResource/61/bo10a7m0-8326-9044-e2 Completed 04/16/2019 Visit Diagnosis Plan: Migraine, unspecif ied, not intractable, without status migrainosus Discussion: Increase gabapentin to 600mg po BID ICD-9 : 346.90 ICD-10 : G43.909 04/08/2019 Visit Diagnosis Plan: Generalized pruritus Discussion: Hydroxyzine 25mg po TID for itching and anxiety ICD-9 : 698.9 ICD-10 : L29.9 04/08/2019 Appointment: Belia Reid WPtel: [phone] [facility] ACUTE ILLNESS 04/08/2019 Visit Diagnosis Plan: Cervicalgia [...] : M75.52 01/22/2019 Appointment: Belia Reid WPtel: [address] [place] [address] Hospital Follow Up 01/22/2019 Visit Diagnosis Plan: Abdominal pain Discussion: urine culture sent to assess for any infection. rocephin given in office to cover for pyelonephritis. instructed to push fluids. call office with any new or worsening symptoms. ICD-9 : 789.00 ICD-10 : R10.9 01/07/2019 Appointment: Pattie Sotomayor [address] ACUTE ILLNESS 01/07/2019 Visit Diagnosis Plan: Low back pain Discussion: Stat C T of abdomen/pelvis now ICD-9 : 724.2 ICD-10 : M54.5 12/24/2018 Appointment: Belia Reid WPtel: [address] [place] [address] FOLLOW UP 12/24/2018 Visit Diagnosis Plan: Migraine, [...] : M79.7 11/20/2018 Appointment: Belia Reid WPtel: [address] [place] [address] ACUTE ILLNESS 11/20/2018 Patient Education: baclofen- [employer] Coupon [id number] https://www.[employer]/samplemd/resources/getResource/61/2b5364g8-ge1v-46mq-52 Completed 11/20/2018 Visit Diagnosis Plan: Migraine, unspecif ied, intractable, without status migrainosus Discussion: toradol/phenergan given in o ffice (60 mg toradol, 12.5 mg phenergan). instructed to call if no improvement or worsening. instructed to follow up with manager semiconductor since headaches are occurring more frequently to make sure vision is not the cause. ICD-9 : 346.91 ICD-10 : G43.919 11/04/2018 Visit Diagnosis Plan: Acute sinusitis, unspecified Dis cussion: zithromax prescribed to cover for sinus infection due to length of symptoms and clinincal s/s. ICD-9 : 461.9 ICD-10 : J01.90 11/04/2018 Appointment: Pattie Sotomayor [address] [place] [address] ACUTE ILLNESS 11/04/2018 Appointment: Belia Reid WPtel: [phone] [place] [address] US CANCELED 09/24/2018 Visit Diagnosis Plan: Type 2 diabetes me llitus with diabetic neuropathy, unspecified Discussion: Retry gabapentin 300mg po q HS ICD-9 : 250.60 ICD-10 : E11.40 09/18/2018 Visit Diagnosis Plan: Vitamin D deficiency, unspecifie d Discussion: Increase Vitamin D3 to 10,000 u daily ICD-9 : 268.9 ICD-10 : E55.9 09/18/2018 Visit Diagnosis Plan: Encounter for [facility] adult medical examination without abnormal findings Discussion: [...] I10 09/18/2018 Appointment: Belia Reid WPtel: [phone] Annual Well Visit 09/18/2018 Patient Education: gabapentin- [employer] Coupon [phone] https://www.[employer]/samplemd/resources/getResource/61/6o04hr71-1ja3-6dkr-t7 Completed 09/18/2018 Visit Diagnosis Plan: Pain in [...] ICD-10 : M54.89 09/08/2018 Appointment: Pattie Sotomayor [address] [place] [address] ACUTE ILLNESS 09/08/2018 Patient Education: prednisone- [employer] Coupon [phone] https://www.[employer]/samplemd/resources/getResource/61/9q5qq46p-4912-03e9-tc Completed 09/08/2018 Visit Diagnosis Plan: Pruritus, unspecified [...] E10.9 08/20/2018 Appointment: Belia Reid WPtel: [phone] [place] [id number] ACUTE [facility] 08/20/2018 Patient Education: Lexapro- [employer] Coupon [id number] Completed 08/20/2018 Patient Education: hydroxyzine HCl- [employer] Coupon [id number] Completed 08/20/2018 Care Plan: MAMMOGRAM SCREENING LOINC : 2 6347-5 Pending 08/20/2018 Visit Diagnosis Plan: Paroxysmal atrial fibrillation D iscussion: Discuss eliquis need with cardiology at [facility] due to cost ICD-9 : 427.31 ICD-10 : I48.0 06/19/2018 Visit Diagnosis Plan: Hypotension due to drugs Discuss ion: Discussed decreasing cardizem dose due to low BP and edema but sees cardiology next week Follow Up: 1 months ICD-9 : 458.8 ICD-10 : I95.2 06/19/2018 Appointment: Belia Reid WPtel: [address] [place], [place] [phone] [place] FOLLOW UP 06/19/2018 Visit Diagnosis Plan: [...] : R61 06/09/2018 Appointment: Belia Reid WPtel: [address] [place], [place] [phone] [place] FOLLOW UP 06/09/2018 Care Plan: CHEST X-RAY 2VW FRONTAL&LATL LOINC : 76743-4 Pending 05/26/2018 Visit Diagnosis Plan: Supraventricular tachycardia [...] : R53.1 05/21/2018 Appointment: Belia Reid WPtel: [address] [place] [address] Follow Up 05/21/2018 Visit Diagnosis Plan: Cervical disc diso rder with radiculopathy, unspecified cervical region Discussion: Scheduled for surgery on 06/02 10/[address] Faulkner ICD-9 : 722.0 ICD-10 : M50.10 04/16/2018 Appointment: Belia Reid WPtel: [address] [place] [address] Follow Up 04/16/2018 Visit Diagnosis Plan: Fibromyalgia [...] ICD-10 : G43.919 04/01/2018 Appointment: Pattie Sotomayor [address] [place] [address] ACUTE ILLNESS 04/01/2018 Appointment: Belia Reid WPtel: [address] [place] [address] UA 03/17/2018 Visit Diagnosis Plan: Chronic obstructiv [...] : E11.65 03/06/2018 Appointment: Belia Reid WPtel: [address] [place], [place] [phone] Hospital Follow Up 03/06/2018 Visit Diagnosis Plan: Cervicalgia Discussion: spoke wi dr. reid about patient. increased gabapentin to bid and started on celebrex bid. tramadrol rx written out to take prn. keep scheduled appt next week for myelogram. ICD-9 : 723.1 ICD-10 : M54.2 02/05/2018 Appointment: Pattie Sotomayor [address] [place] [address] ACUTE ILLNESS 02/05/2018 Care Plan: X-RAY EXAM NECK SPINE 4/5VWS cervical LOINC : 04021-1 Pending 01/21/2018 Visit Diagnosis Plan: Candidiasis of [...] ICD-10 : M54.2 01/20/2018 Appointment: Pattie Sotomayor [address] [place] [address] ACUTE ILLNESS 01/20/2018 Visit Diagnosis Plan: Pain in thoracic spine Discussio n: Proceed with CT scan of thoracic spine Will likely need PT ICD-9 : 724.1 ICD-10 : M54.6 12/25/2017 Appointment: Belia Reid WPtel: [address] [facility] FOLLOW UP 12/25/2017 Care Plan: CT THORAX W/O DYE LOINC : 473 66-0 Pending 12/25/2017 Visit Diagnosis Plan: Pain in thoracic spine Discussio n: Stretches Alternated heat/ice Topical aspercreme with lidocaine Flexeril Recheck 1 week Flu and Pneumovax given ICD-9 : 724.1 ICD-10 : M54.6 12/17/2017 Appointment: Belia Reid WPtel: [address] [place], [place] [phone] ACUTE ILLNESS 12/17/2017 Patient Education: Patient [...] : J44.1 10/30/2017 Appointment: Belia Reid WPtel: [address] [place] [address] FOLLOW UP 10/30/2017 Patient Education: Patient Medication Summary Completed 10/30/2017 Visit Diagnosis Plan: Chronic obstructiv e pulmonary disease with acute lower respiratory infection Discussion: Continue SVNs with albuterol q4hrs Add Trelagy 1 inhalation daily Finish steroids Increase water intake Follow Up: 1 weeks ICD-9 : 496 ICD-10 : J44.0 10/23/2017 Appointment: Belia Reid WPtel: [address] [place] [address] WORK IN 10/23/2017 Patient Education: Patient Medication Summary Completed 10/23/2017 Appointment: Belia Reid WPtel: [address] [place], [place] [phone] NO SHOW 10/16/2017 Visit Diagnosis Plan: Confusional [...] : E11.65 09/17/2017 Appointment: Belia Reid WPtel: [address] [place], [place] [address] Annual Well Visit 09/17/2017 Patient Education: Patient Medication Summary Completed 09/17/2017 Appointment: Belia Reid WPtel: [address] [place], [place] [phone] [place] INJECTION 08/26/2017 Patient Education: Patient Medication Summary Completed 08/26/2017 Appointment: Belia Reid WPtel: [address] [facility] [place] CANCELED 07/31/2017 Visit Diagnosis Plan: [...] ICD-10 : J20.9 07/19/2017 Appointment: Pattie Sotomayor [address] [place] [address] ACUTE ILLNESS 07/19/2017 Patient Education: Patient Medication Summary Completed 07/19/2017 Care Plan: MAMMOGRAM SCREENING LOINC : 2 6347-5 Pending 07/19/2017 Patient Education: Patient Medication Summary Completed 06/05/2017 Care Plan: LIPID PANEL LOINC : 69740-6 Pending 06/05/2017 Care Plan: A1C HPLC LOINC : 87889-3 Pending 06/05/2017 Visit Diagnosis Plan: Rash and [...] ICD-10 : R21 05/29/2017 Appointment: Pattie Sotomayor [address] [place] [address] FOLLOW UP 05/29/2017 Patient Education: Patient Medication Summary Completed 05/29/2017 Visit Diagnosis Plan: Tinea corporis Discussion: Diflu can and topical nystatin Follow Up: 2 weeks ICD-9 : 110.5 ICD-10 : B35.4 05/07/2017 Visit Diagnosis Plan: Diarrhea, unspecified Discussion : Diflucan Cholestyramine Recheck 2weeks ICD-9 : 787.91 ICD-10 : R19.7 05/07/2017 Appointment: Belia Reid WPtel: [address] [place] [address] FOLLOW UP 05/07/2017 Patient Education: Patient Medication Summary Completed 05/07/2017 Appointment: Belia Reid WPtel: [address] [place] [address] [place] RESCHEDULED 04/30/2017 Visit Diagnosis Plan: Chronic obstructiv e pulmonary disease with (acute) exacerbation Discussion: Finish prednisone Continue S VNS with albuterol ICD-9 : 491.21 ICD-10 : J44.1 03/18/2017 Visit Diagnosis Plan: Stridor Discussion: Increase Ati van 0.5mg po to TID routinely for next week then can go back to prn ICD-9 : 786.1 ICD-10 : R06.1 03/18/2017 Appointment: Belia Reid WPtel: [address] [place] [address] ER Follow UP 03/18/2017 Patient Education: Patient [...] E11.65 02/27/2017 Appointment: Belia Reid WPtel: [address] [facility] [place] FOLLOW UP 02/27/2017 Patient Education: Patient [...] ICD-10 : E11.65 02/22/2017 Appointment: Pattie Sotomayor [address] [place] [address] ACUTE ILLNESS 02/22/2017 Patient Education: Patient Medication [...] J18.9 01/23/2017 Appointment: Belia Reid WPtel: [address] [facility] ER Follow UP 01/23/2017 Patient Education: Patient Medication Summary Completed 01/23/2017 [facility] [facility] 01/17/2017 Appointment: Pattie Sotomayor [address] [facility] Annual Well Visit 01/14/2017 Visit Diagnosis Plan: Type 2 diabetes mellitus with hy perglycemia Discussion: Check CMP, HbA1C Flu shot and Prevnar 13 given Follow Up: 3 months ICD-9 : 250.02 ICD-10 : E11.65 12/20/2016 Visit Diagnosis Plan: Localized edema Discussion: Low Na diet Compression socks/Elevate feet ICD-9 : 782.3 ICD-10 : R60.0 12/20/2016 Appointment: Belia Reid WPtel: [address] [place], [place] [phone] FOLLOW UP 12/20/2016 Patient Education: Patient Medication Summary Completed 12/20/2016 Patient Education: Patient Medication Summary Completed 10/10/2016 Visit Plan: Xrays of cervical, thoracic and lumbar spine at ER[facility] for Mobic (stop NSAIDS except Tylenol) and Flexeril UA sent for C&S Using SVN Call in 2-3 days if pain not improved or any worsening 10/08/2016 Appointment: Celeste Ferreira WPtel: [address] [place], [place] [phone] ACUTE ILLNESS 10/08/2016 Patient Education: Patient Medication [...] E11.65 09/19/2016 Appointment: Belia Reid WPtel: [address] [facility] 09/18 confirmed`sl FOLLOW UP 09/19/2016 Patient [...] : R10.84 08/20/2016 Appointment: Belia Reid WPtel: [address] [place], [place] [id number] 08/16 confirmed~sl FOLLOW UP 08/20/2016 Patient Education: [...] : J44.9 06/19/2016 Appointment: Belia Reid WPtel: [address] [place], [place] [address] 06/18 confirmed ~ Hospital Follow Up 06/19/2016 [...] : Z87.440 06/04/2016 Appointment: Belia Reid WPtel: [address] [place], [place] [phone] 06/01 confirmed~ FOLLOW UP 06/04/2016 Patient Education: [...] : R06.1 05/02/2016 Appointment: Belia Reid WPtel: [facility] 05/01 confirmed [facility] Hospital Follow Up 05/02/2016 Patient Education: [...] : N39.0 04/03/2016 Appointment: Belia Reid WPtel: [address] [place] [id number] [facility] 04/03/2016 Patient Education: Patient Medication Summary Completed 04/03/2016 Visit Plan: Lungs are clear Her symptoms and exam are all upper airway restriction/constriction Can try supportive care Rx as above Follow up PRN 02/29/2016 Appointment: [facility] [place] ACUTE ILLNESS 02/29/2016 Patient Education: Patient Medication Summary Completed 02/29/2016 Visit Plan: Toradol/Phenergan today for Migraine Change to Clindamycin to cover lactobacillus for UTI Cover with flagyl due to hx of C. Diff 02/02/2016 Appointment: Belia Reid WPtel: [address] [place] [address] 01/31 confirmed`sl ACUTE ILLNESS 02/02/2016 Patient Education: Patient Medication Summary Completed 02/02/2016 Visit Plan: Increase neurontin to 300mg q AM and 600mg q PM Discussed neurology re-evaluation Flu shot given Need to check on Pneumonia shot Rx written out for albuterol 01/05/2016 Appointment: Belia Reid WPtel: [address] [place] [address] 01/03 confirmed ~sl Annual Well Visit 01/05/2016 Patient Education: Patient Medication Summary Completed 01/05/2016 Visit Plan: Cipro Culture urine hydrate Flexeril refilled Alternate heat and ice for back Increase gabapentin to 300mg po BID Notify if worsens 12/05/2015 Appointment: Belia Reid WPtel: [address] [place] [address] 11/30 confirmed~sl ACUTE ILLNESS 12/05/2015 Patient Education: Patient Medication Summary Completed 12/05/2015 Patient Education: Patient Medication Summary Completed 10/27/2015 Care Plan: [place] : [address]-1 Pending 10/27/2015 Care Plan: A1C HPLC LOINC : 26477-5 Pending 10/27/2015 Visit Plan: Lungs are CTA today and is f eeling improved overall Finish meds as ordered Continue inhalers and neb treatments Discussed migraine treatment options She does not feel she needs anything additional added today Refill of Januvia sent since no samples are available today 10/26/2015 Appointment: Lidia Hwang [address] [facility] Hospital Follow Up 10/26/2015 Appointment: Lidia Hwang [address] [place], [place] [address] CANCELED 10/26/2015 Patient Education: Patient Medication Summary Completed 10/26/2015 Patient Education: Natalia Lacey+ - KENNETH - No [place] Completed 10/26/2015 Visit Plan: Office dip still abnormal Cu lture pending Switch to cipro - stop macrobid Push fluids - avoid caffeine Will call with culture results when available Follow up if worsening 10/05/2015 Appointment: Lidia Hwang [address] ER Follow UP 10/05/2015 Patient Education: Patient Medication Summary Completed 10/05/2015 Visit Plan: Proceed with PT for document ation of ROM and strength of all extremities Proceed with Power Mobility Device Trial of neurontin 300mg q HS--lyrica helped but patient unable to afford Recheck 1month 09/15/2015 Appointment: Belia Reid WPtel: [address] [place], [place] [phone] 09/13 confirmed~sl SPECIAL 09/15/2015 Patient Education: Patient Medication Summary Completed 09/15/2015 Visit Plan: Fille out Loan Discharge Pap erwork for total and permanent disability 08/25/2015 Patient Education: Patient Medication Summary Completed 08/25/2015 Visit Plan: Discussed with Dr Anushka Haywood at CT of head 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 and update if needed 08/24/2015 Appointment: Lidia Hwang [address] [place], [place] [id number] 08/22 confirmed~sl ACUTE ILLNESS 08/24/2015 Patient Education: Patient Medication Summary Completed 08/24/2015 Patient Education: Patient Medication Summary Completed 08/24/2015 Care Plan: US EXAM OF HEAD AND NECK carotid Ultrasound LOIN C : 80854-5 Pending 08/24/2015 Visit Plan: Long discussion about diet A ccuchecks daily Check HbA1C, CMP Change requip to mirapex 07/05/2015 Appointment: Belia Reidtel: [address] [place], [place] [phone] 07/03 confirmed ~sl FOLLOW UP 07/05/2015 Patient Education: Patient Medication Summary Completed 07/05/2015 Visit Plan: Add Breo ellipta 100 1 p BID Continue SVNs with duoneb QID 06/06/2015 Appointment: Belia Reid: [address] [place], [place] [phone] Patient is calling for a ride, then retu rning our call.-sp 06/01 called and patient stated she will know saturday if she can get a ride~sl 06/05 [facility] Follow Up 06/06/2015 Patient Education: Patient [...] not improving 05/23/2015 Appointment: Huong Osborne WPtel: [address] [place], [place] [phone] ACUTE ILLNESS 05/23/2015 Appointment: Lidia Hwang [address] [place], [place] [id number] ER Follow UP 05/23/2015 Patient Education: Patient Medication Summary Completed 05/23/2015 Visit Plan: Check pancreatic enzymes and US of pancreas as patient can't understand why she has diabetes since has no family history Discussed weight, diet, exercise all play an important role in diabetes and are risk factors as well Continue Januvia and accuchecks daily 05/05/2015 Appointment: Belia Reid WPtel: [address] [place], [place] [phone] [place] FOLLOW UP 05/05/2015 Patient Education: Patient Medication Summary Completed 05/05/2015 Care Plan: US EXAM ABDOM COMPLETE LOINC : 34801-3 Ordered 05/05/2015 Visit Plan: Start Januvia 100mg daily [place] with diflucan and culture urine Accuchecks daily alternating times Recheck 6weeks 03/30/2015 Appointment: Belia Reid WPtel: [address] [place] [id number] 03/29 confirmed~lb FOLLOW UP 03/30/2015 Patient Education: Patient Medication Summary Completed 03/30/2015 Appointment: Belia Reidteabigail: [address] [place] [address] 03/01 needs reschedule due to payment and insurance ~sl FOLLOW UP 03/02/2015 Visit Plan: Patient was just in ER last night so has not filled scripts yet Start Carafate and Flagyl and Cipro Add Hyophen 1 po BID Recheck 1mo 02/03/2015 Appointment: Belia Reid WPtel: [address] [place] [address] 02/02lm ~sl...02/03/15 appt confirmed cn ACUTE I LLNESS 02/03/2015 Patient Education: Patient Medication Summary Completed 02/03/2015 Visit Plan: Warm soaks to vaginal area K elex and Diflucan and observe Zofran to use prn 12/29/2014 Appointment: Belia Reid WPtel: [address] [place] [address] 12/28 Confirmed ~sl ACUTE ILLNESS 12/29/2014 Patient Education: Patient Medication Summary Completed 12/29/2014 Appointment: Huong Osborne WPtel: [address] [place] [address] FOLLOW UP 09/24/2014 Appointment: Belia Reid WPtel: [address] [place] [address] 09/15 confirmed -mf FOLLOW UP 09/16/2014 Visit Plan: Increase requip to 2mg po BI D Increase lyrica to 225mg total a day by adding an extra 75mg in AM Recheck in 2weeks Continue to patch left eye while sleeping 09/02/2014 Appointment: Belia Reid WPtel: [address] [place] [address] 09/01 appt confirmed cn Hospital Follow Up 09/02 Patient Education: Patient Medication Summary Completed 09/02/2014 Visit Plan: To [facility] for observat ion to R/O CVA 08/25/2014 Appointment: Huong Osborne: [address] [place], [place] [address] ACUTE ILLNESS 08/25/2014 Patient Education: Patient Medication Summary Completed 08/25/2014 Referral: Aaron Jonas WPtel: [facility] [address], [facility] 1 [id number] [place] In [place] location Initiated 04/26/2014 Referral: Brian Srinivasan WPtel: [address] [place] [id number] Referral Initiated 04/20/2014 Appointment: Belia Reid WPtel: [address] [place], [place] [phone] ER Follow UP 04/01/2014 Patient Education: Patient Medication Summary Completed 04/01/2014 Care Plan: MYELOGRAPHY NECK SPINE LOINC : 51706-1 Ordered 04/01/2014 Visit Plan: Continue Symbicort 160 at 2p BID Continue SVNs with duoneb at least QID Finish Levaquin Recheck 1mo on lyrica 03/16/2014 Appointment: Belia Reid WPtel: [address] [place], [place] [phone] 03/15 voicemail FOLLOW UP 03/16/2014 Patient Education: Patient Medication Summary Completed 03/16/2014 Visit Plan: Restart SVNs with duoneb QID Repeat prednisone Levaquin Continue symbicort Keep lyrica at same dose Recheck 1week 03/09/2014 Appointment: Belia Reid WPtel: [address] [place], [place] [phone] FOLLOW UP 03/09/2014 Patient Education: Patient Medication Summary Completed 03/09/2014 Appointment: Belia Reid WPtel: [address] [place], [place] [phone] 03/03 showed up 15 minutes late for appt -- put her on Huong's side for 10:45am FORGIVEN PER DR FOLLOW UP 03/03/2014 Appointment: Huong Osborne WPtel: [address] [place], [place] [phone] FOLLOW UP 03/03/2014 Patient Education: Patient Medication Summary Completed 03/03/2014 Appointment: Huong Osborne WPtel: [address] [place], [place] [phone] ER Follow UP 03/01/2014 Patient Education: Patient Medication Summary Completed 03/01/2014 Visit Plan: Add carafate for this next m onth Increase lyrica to 150mg q HS 02/09/2014 Appointment: Belia Reid WPtel: [address] [place] [phone] [place] [address] Follow Up 02/09/2014 Patient Education: Patient Medication Summary Completed 02/09/2014 Visit Plan: Increase omeprazole back to 40mg po BID Use requip in AM and add lyrica 75mg q HS Recheck 1mo 12/23/2013 Appointment: Belia Reid WPtel: [address] [place], [place] [phone] FOLLOW UP 12/23/2013 Patient Education: Patient Medication Summary Completed 12/23/2013 Patient Education: Patient Medication Summary Completed 12/04/2013 Appointment: Belia Reid WPtel: [address] [place], [place] [phone] [facility] 10/30/2013 Patient Education: Patient Medication Summary Completed 10/30/2013 Appointment: Belia Reid WPtel: [address] [place], [place] [phone] [facility] 10/21/2013 Patient Education: Patient Medication Summary Completed 10/21/2013 Visit Plan: Cryotherapy as above TAC and hydroxyzine to use prn to itching spots and itching SKs Add Advair HFA 115/21 1 p BID 10/05/2013 Appointment: Belia Reid WPtel: [address] [place], [place] [phone] 10/01 pt called and confirmed ACUTE ILLNESS Patient Education: Patient Medication Summary Completed 10/05/2013 Appointment: Belia Reid WPtel: [address] [place], [place] [phone] [place] will pay copay and part of past balance FOLLOW U P 08/04/2013 Patient Education: Patient Medication Summary Completed 08/04/2013 Appointment: Belia Reid WPtel: [address] [place], [place] [phone] [place] INJECTION 07/13/2013 Patient Education: Patient Medication Summary Completed 07/13/2013 Appointment: Huong Osborne WPtel: [address] [place], [place] [phone] ACUTE ILLNESS 07/03/2013 Patient Education: Patient Medication Summary Completed 07/03/2013 Visit Plan: Cipro and culture urine 05/27/2013 Appointment: Huong Osborne WPtel: [address] [place], [place] [phone] 05/26 confirmed appt and 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 FOLLOW UP 05/27/2013 Patient Education: Patient Medication Summary Completed 05/27/2013 Appointment: Belia Reid WPtel: [address] [place], [place] [phone] [place] UA 05/25/2013 Patient Education: Patient Medication Summary Completed 05/25/2013 Appointment: Belia Reid WPtel: [address] [place], [place] [phone] [place] INJECTION 05/04/2013 Patient Education: Patient Medication Summary Completed 05/04/2013 Appointment: Belia Reid WPtel: [address] [place], [place] [phone] [place] INJECTION 04/17/2013 Patient Education: Patient Medication Summary Completed 04/17/2013 Appointment: Belia Reid WPtel: [address] [place], [place] [phone] [place] INJECTION 04/15/2013 Appointment: Belia Reidl: [address] [place], [place] [id number] 04/02 FOLLOW UP 04/06/2013 Patient Education: Patient Medication Summary Completed 04/06/2013 Visit Plan: Obtain lab results including UA from [facility] 11/10/2012 Appointment: Belia Reid WPtel: [address] [place], [place] [phone] ER Follow UP 11/10/2012 Patient Education: Patient Medication Summary Completed 11/10/2012 Appointment: Belia Reid WPtel: [address] [place], [place] [phone] 10/30/12 patient canceled appt due to fin ances. Offered to work something out, patient declined-LB FOLLOW UP 11/05/2012 Visit Plan: Continue Bystolic at current dose Pt has fwup with Neurology on September 16 09/02/2012 Appointment: Belia Reid WPtel: [address] [place], [place] [phone] FOLLOW UP 09/02/2012 Patient Education: Patient Medication Summary Completed 09/02/2012 Visit Plan: Continue bystolic at 5mg chris ly Sees Neurology tomorrow Use oxygen at bedtime 08/04/2012 Appointment: Belia Reid WPtel: [address] [place], [place] [id number] FOLLOW UP 08/04/2012 Patient Education: Patient Medication Summary Completed 08/04/2012 Appointment: Belia Reid WPtel: [address] [place], [place] [phone] has Hospital fwup for 07/21/12. merged appointments FOLLOW UP 07/24/2012 Visit Plan: Start Bystolic 5mg daily for tachycardia Fwup with neurology for further workup Overnight O2 sat 07/21/2012 Appointment: Belia Reid WPtel: [address] [place], [place] [phone] Hospital Follow Up 07/21/2012 Patient Education: Patient Medication Summary Completed 07/21/2012 Visit Plan: SVN with Albuterol QID Add A velox 400mg daily Notify if worsens or persists 07/02/2012 Appointment: Belia Reidtel: [address] [place], [place] [phone] ACUTE ILLNESS 07/02/2012 Patient Education: Patient Medication Summary Completed 07/02/2012 Appointment: Belia Reid WPtel: [address] [place], [place] [phone] INJECTION 06/25/2012 Patient Education: Patient Medication Summary Completed 06/25/2012 Appointment: Belia Reid WPtel: [address] [place] [address] FOLLOW UP 06/24/2012 Patient Education: Patient Medication Summary Completed 06/24/2012 Appointment: Belia Reid WPtel: [address] [place], [place] [phone] 05/19 [facility] FOLLOW UP 05/20/2012 Patient Education: Patient Medication Summary Completed 05/20/2012 Visit Plan: DC Neurontin--discussed that this may be causing some of symptoms Also discussed that stress is likely contributing factor Discussed that may be going through withdrawal from stopping pain meds cold turkey--pt states stopped meds 2wks ago do to not helping Increase Buspar to 10mg po TID 05/08/2012 Appointment: Belia Reid WPtel: [address] [place], [place] [phone] ACUTE ILLNESS 05/08/2012 Patient Education: Patient Medication Summary Completed 05/08/2012 Visit Plan: Continue current meds Contin ue lower dose on pain meds and Diazepam Still waiting on paperwork for botox for Migraines Will restart Neurontin at 600mg po q HS Pt going to stop Depakote due to can't afford 04/22/2012 Appointment: Belia Reid WPtel: [address] [place], [place] [phone] 02/18 Hospital Follow Up 04/22/2012 Patient Education: Patient Medication Summary Completed 04/22/2012 Visit Plan: Injection to shoulder as abo ve Continue current meds Has appointment with neurology on HAs in 02/13/2012 Appointment: Belia Reid WPtel: [address] [place], [place] [phone] [facility] - will bring it in next week. Kianna iqbal'ed this. - [place] FOLLOW UP 02/13/2012 Patient Education: Patient Medication Summary Completed 02/13/2012 Visit Plan: Proceed with headache specia list Change nexium to Protonix Phenergan to use prn Sumatriptan to use prn Pt still on Inderal 01/28/2012 Appointment: Belia Reid WPtel: [address] [place], [place] [phone] ER Follow UP 01/28/2012 Patient Education: Patient [...] for sleep 12/26/2011 Appointment: Belia Reid WPtel: [address] [place], [place] [phone] 12/24- appt. confirmed FOLLOW UP 2 Patient Education: Patient Medication Summary Completed 12/26/2011 Appointment: Belia Reid WPtel: [address] [place], [place] [phone] [place] FOLLOW UP 11/14/2011 Patient Education: Patient Medication Summary Completed 11/14/2011 Appointment: Belia Reid WPtel: [address] [place], [place] [phone] [place] FOLLOW UP 09/12/2011 Patient Education: Patient Medication Summary Completed 09/12/2011 Visit Plan: Supportive care Decrease Liseth catalino to 50mg q HS Decrease AM dose of Valium to 5mg q HS Use Endocet sparingly 08/15/2011 Appointment: Belia Reid WPtel: [address] [place], [place] [phone] ER Follow UP 08/15/2011 Patient Education: Patient Medication Summary Completed 08/15/2011 Appointment: Belia Reid WPtel: [address] [place] [address] Spoke directly to patient yesterday and confirmed the appoin tment. ACUTE ILLNESS 08/09/2011 Patient Education: Patient Medication Summary Completed 08/09/2011 Appointment: Belia Reid WPtel: [address] [place] [address] Hospital Follow Up 07/03/2011 Patient Education: Patient Medication Summary Completed 07/03/2011 Appointment: Belia Reid WPtel: [address] [place], [place] [phone] FOLLOW UP 06/04/2011 Patient Education: Patient Medication Summary Completed 06/04/2011 Visit Plan: Pt. wants "allergy shot" but in fact wants steroid shot. Will take a break from "generic Zyrtec they are getting from [facility]" and try Singulair for 2 weeks. 05/03/2011 Appointment: Iraida Jones WPtel: [address] [place], [place] [phone] ACUTE ILLNESS 05/03/2011 Patient Education: Patient Medication Summary Completed 05/03/2011 Visit Plan: Neurontin 400mg q HS for 1we ek then 800mg q HS Decrease requip to 1mg q HS for 2wks then stop Fwup 2mos 04/05/2011 Appointment: Belia Reid WPtel: [address] [place], [place] [id number] [place] FOLLOW UP 04/05/2011 Patient Education: Patient Medication Summary Completed 04/05/2011 Visit Plan: Trial of neurontin in 2wks Iván kay current meds for stomach Pt has procedure with Dr. Ortiz next week for stone removal 03/08/2011 Appointment: Belia Reid WPtel: [address] [place] [address] Follow Up 03/08/2011 Patient Education: Patient Medication Summary Completed 03/08/2011 Appointment: Belia Reid WPtel: [address] [place] [address] FOLLOW UP 02/19/2011 Visit Plan: reports increased [...] Flagyl 01/24/2011 Appointment: Iraida Jones WPtel: [address] [place] [address] ACUTE ILLNESS 01/24/2011 Patient Education: Patient Medication Summary Completed 01/24/2011 Appointment: Belia Reid WPtel: [address] [place] [address] FOLLOW UP 01/02/2011 Patient Education: Patient Medication Summary Completed 01/02/2011 Appointment: Belia Reid WPtel: [address] [place] [address] FOLLOW UP 12/12/2010 Appointment: Belia Reid WPtel: [address] [place] [address] ACUTE ILLNESS 12/07/2010 Patient Education: Patient Medication Summary Completed 12/07/2010 Visit Plan: Increase Buspar to 10mg po B ID 11/16/2010 Appointment: Belia Reid WPtel: [address] [place] [address] FOLLOW UP 11/16/2010 Patient Education: Patient Medication Summary Completed 11/16/2010 Appointment: Iraida Jones WPtel: [address] [place] [address] ER Follow UP 11/02/2010 Patient Education: Patient Medication Summary Completed 11/02/2010 Visit Plan: Depo-Medrol/Kenalog given fo r allergies Add BuSpar for anxiety Oxycodone 10 one p.o. q.i.d. for number 120 refilled 10/18/2010 Appointment: Belia Reid WPtel: [address] [place] [address] FOLLOW UP 10/18/2010 Patient Education: Patient Medication Summary Completed 10/18/2010 Visit Plan: Continue current meds Discus sed epidurals for back vs PT--will proceed with epidurals to thoracolumbar region to see if helps with pain 09/19/2010 Appointment: Belia Reid WPtel: [address] [place] [address] FOLLOW UP 09/19/2010 Patient Education: Patient Medication Summary Completed 09/19/2010 Visit Plan: DC MS contin Check CT scan t horacic spine Fwup pending above results 09/06/2010 Appointment: Belia Reid WPtel: [address] [place] [address] FOLLOW UP 09/06/2010 Patient Education: Patient Medication Summary Completed 09/06/2010 Visit Plan: Continue current meds Restar t MS contin 15mg po BID and use oxycodone prn Use daily senokot-s 2 po BID 08/10/2010 Appointment: Belia Reid WPtel: [address] [place] [address] [place] FOLLOW UP 08/10/2010 Patient Education: Patient Medication Summary Completed 08/10/2010 Visit Plan: Depomedrol/Kenalog given Pt sees ENT later this month Cont current meds Mammo scheduled 05/11/2010 Appointment: Belia Reid WPtel: [address] [place] [address] FOLLOW UP 05/11/2010 Patient Education: Patient Medication Summary Completed 05/11/2010 Appointment: Belia Reidtel: [address] [place] [address] 05/04/2010 Patient Education: Patient Medication Summary Completed 05/04/2010 Visit Plan: Pt sent to lab for UA 04/28/2010 Appointment: Belia Reid WPtel: [address] [place] [address] 04/28/2010 Patient Education: Patient Medication Summary Completed 04/28/2010 Visit Plan: Check CT angiogram of chest Restart Advair Use proair prn Cont current meds Fwup with Card as schedulec 04/06/2010 Appointment: Belia Reidtel: [address] [place] [address] Hospital Follow Up 04/06/2010 Patient Education: Patient Medication Summary Completed 04/06/2010 Visit Plan: Paperwork filled out for pow erchair Depomedrol/kenalog given Pt sees ENT in 2wks to assess nasal obstruction problems 02/09/2010 Appointment: Belia Reidtel: [address] [place] [address] ESTABLISHED PATIENT 02/09/2010 Patient Education: Patient Medication Summary Completed 02/09/2010 Visit Plan: Change Elavil to Trazadone 1 50mg q HS Diflucan and nystatin for tinea cruris 01/05/2010 Appointment: Belia Reidtel: [address] [place] [address] FOLLOW UP 01/05/2010 Patient Education: Patient Medication Summary Completed 01/05/2010 Appointment: Belia Reidtel: [address] [place], [place] [id number] FOLLOW UP 12/07/2009 Patient Education: Patient Medication Summary Completed 12/07/2009 Appointment: Belia Reid WPtel: [address] [place], [place] [id number] FOLLOW UP 11/22/2009 Visit Plan: Cont current meds and await MRI results from Dr. Meadows's office and his final recommendations Will need to follow-up at later date on deviated septum 11/08/2009 Appointment: Belia Reid WPtel: [address] [place] [address] FOLLOW UP 11/08/2009 Patient Education: Patient Medication Summary Completed 11/08/2009 Visit Plan: Cont PT/OT See Neurosurgery Cont Tortoise shell brace 10/24/2009 Appointment: Belia Reid WPtel: [address] [place] [address] FOLLOW UP 10/24/2009 Patient Education: Patient Medication Summary Completed 10/24/2009 Appointment: Belia Reid WPtel: [address] [place] [address] Follow Up 10/17/2009 Appointment: Belia Reid WPtel: [address] [place] [address] ACUTE ILLNESS 07/25/2009 Patient Education: Patient Medication Summary Completed 07/25/2009 Appointment: Belia Reid WPtel: [address] [place] [address] FOLLOW UP 05/26/2009 Patient Education: Patient Medication Summary Completed 05/26/2009 Referral: Chino Balderas WPtel: [address] [id number] Referral Initiated Referral: Merry Vale WPtel: [facility] [id number] Vale will review referral and book appointment Completed Referral: Francisco Javier Yoder WPtel: [address] [id number] [place] Patient needs EGD insurance will not inc rease a medication unless this procedure results show a need Completed Referral: Francisco Javier Yoder WPtel: [address] [id number] [place] Referral Historical Reference Referral: Francisco Javier Yoder WPtel: [address] [id number] [place] Referral Initiated Instructions Comment . 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 Long discussion [...] from "generic Zyrtec they are getting from [facility]" and try Singulair for 2 [...]
--- OUTSIDE RECORDS SUMMARY | 2019-06-23 18:08 | XMS REPORT | CCD ---
Author Author Diana Reid D.O. Organization [facility] Address [address] [place] [address] Phone Care Team Providers Care Securities Broker Name Role Phone [facility] D[facility] PP Unavailable CCM Unavailable Summary Purpose Interface Exchange Insurance Providers Payer name Policy type / Coverage type Covered libertarian ID Effective Begin Date Effective End Date [employer] MEDICARE Medicare Part B [id number] 2019 Unknown Family History Family History data not found Social History Social History Element Codes Description Effective Dates Tobacco history SNOMED CT: 616501064 Nonsmoker 09/13/2010 Allergies, Adverse Reactions, Alerts Substance Reaction Codes Entered Date Inactivated Date Status Eggs reaction [id number] 09/15/2015 No Inactive Date Active _ Unknown [...] Fill Instructions Singulair 10 mg tablet RxNorm: 472191 1 Tablet(s) Oral QPM 05/06/19 20 06/05/2019 Active gabapentin 600 mg tablet RxNorm: 970364 1 Tablet(s) Oral QD 020 06/05/2019 Active Valium 5 mg tablet RxNorm: 740473 1 Tablet(s) Oral QPM for stri joao/muscle spasm 04/29/2019 05/29/2019 Active baclofen 10 mg tablet RxNorm: 871856 1 Tablet(s) Oral QPM for s pasm/neck pain 04/24/2019 05/23/2019 Active baclofen 10 mg tablet RxNorm: 075346 1 Tablet(s) Oral QPM for s pasm/neck pain 04/24/2019 04/23/2019 Inactive Novolin N NPH U-100 Insulin isophane 100 unit/mL subcu taneous susp RxNorm: 434005 23 Unit(s) Subcutaneous two times a day 04/20/2019 No Stop Date A ctive cyclobenzaprine 5 mg tablet RxNorm: 358161 1 Tablet(s) Oral three times a day as needed 04/16/2019 04/23/2019 Inactive hydroxyzine HCl 25 mg tablet RxNorm: 706279 1 Tablet(s) Oral three times a day for itching/aniety 04/08/2019 06/07/2019 Active gabapentin 600 mg tablet RxNorm: 075339 1 Tablet(s) Oral two ti mes a day 04/08/2019 05/05/2019 Inactive gabapentin 600 mg tablet RxNorm: 635168 1 Tablet(s) Oral two ti mes a day 04/08/2019 04/07/2019 Inactive Novolin N NPH U-100 Insulin isophane 100 unit/mL subcu taneous susp RxNorm: 400554 10 Unit(s) Subcutaneous two times a day 03/03/2019 04/19/2019 I nactive gabapentin 300 mg capsule RxNorm: 212342 1 Capsule(s) O ral every night at bedtime for neuropathy 02/26/2019 04/07/2019 Inactive gabapentin 300 mg capsule RxNorm: 751165 1 Capsule(s) O ral every night at bedtime for neuropathy 02/20/2019 02/25/2019 Inactive buspirone 5 mg tablet RxNorm: 262300 TAKE 1 TABLET THREE TIMES MILDRED Y 02/12/2019 No Stop Date Active pramipexole 1 mg tablet RxNorm: 857834 1 Tablet(s) Oral QPM FOR RESTLESS LEGS (REPLACES REQUIP) 02/12/2019 02/07/2020 Active Lexapro 10 mg tablet RxNorm: 548866 TAKE 1 TABLET EVERY DAY FOR MOO D 01/31/2019 No Stop Date Active Ativan 0.5 mg tablet RxNorm: 700973 TAKE 1 TABLET BY MO UT THREE TIMES DAILY NEEDED FOR ANXIETY 01/26/2019 04/28/2019 Inactive Ativan 0.5 mg tablet RxNorm: 503473 TAKE 1 TABLET BY MO UT THREE TIMES DAILY NEEDED FOR ANXIETY 01/05/2019 01/05/2019 Inactive Levaquin 500 mg tablet RxNorm: 258111 1 Tablet(s) Oral QD 12/25/2018 12/24/2018 Inactive Levaquin 500 mg tablet RxNorm: 666798 1 Tablet(s) Oral QD 12/25/2018 01/04/2019 Inactive baclofen 10 mg tablet RxNorm: 718898 1 Tablet(s) Oral three maico es a day 11/20/2018 01/19/2019 Inactive Ativan 0.5 mg tablet RxNorm: 488029 TAKE 1 TABLET BY [facility] THREE TIMES DAILY NEEDED FOR ANXIETY 11/20/2018 01/04/2019 Inactive gabapentin 300 mg capsule RxNorm: 223462 1 Capsule(s) O ral every night at bedtime for neuropathy 11/20/2018 12/20/2018 Inactive Lexapro 10 mg tablet RxNorm: 965417 1 Tablet(s) PO QD for mood 07/201801/30/2019 Inactive Zithromax Z-Lj 250 mg tablet RxNorm: 666058 Tablet(s) PO take as directed 11/04/2018 11/19/2018 Inactive Insulin Syringe 1 mL 29 gauge x 1/2" RxNorm: 2 s yringes daily with insulin Dx: E11.65 10/08/2018 No Stop Date Active gabapentin 300 mg capsule RxNorm: 143851 1 Capsule(s) PO QHS fo r neuropathy 09/18/2018 10/17/2018 Inactive cyclobenzaprine 5 mg tablet RxNorm: 688344 1 Tablet(s) PO TID a s needed 09/09/2018 09/08/2018 Inactive cyclobenzaprine 5 mg tablet RxNorm: 771093 1 Tablet(s) PO TID a s needed 09/09/2018 10/08/2018 Inactive prednisone 20 mg tablet RxNorm: 499254 1 Tablet(s) PO QD 09/08/2018 0 09/12/2018 Inactive Lantus Solostar U-100 Insulin 100 unit/mL (3 mL) subcu taneous pen RxNorm: 262262 55 Unit(s) SQ QAM 08/28/2018 11/03/2018 Inactive hydroxyzine HCl 25 mg tablet RxNorm: 330008 1 Tablet(s) PO QHS for itching 08/20/2018 10/18/2018 Inactive Lexapro 10 mg tablet RxNorm: 432870 1 Tablet(s) PO QD for mood 08/0210/18/2018 Inactive sumatriptan 100 mg tablet RxNorm: 546154 1 Tablet(s) PO at headache onset. May repeat 1 in two hours if headache remains. Max of 2 per 24 hours 04/02/2018 05/20/2018 Inactive Diflucan 150 mg tablet RxNorm: 339977 1 Tablet(s) PO QD 03/18/2018 Inactive Diflucan 150 mg tablet RxNorm: 108589 1 Tablet(s) PO QD 03/18/2018 Inactive Flagyl 500 mg tablet RxNorm: 825726 1 Tablet(s) PO TID 03/17/2018 Inactive Levaquin 500 mg tablet RxNorm: 307797 1 Tablet(s) PO QD 03/17/2018 Inactive Levaquin 500 mg tablet RxNorm: 502831 1 Tablet(s) PO QD 03/17/2018 Inactive Flagyl 500 mg tablet RxNorm: 170416 1 Tablet(s) PO TID 03/17/2018 Inactive ketoconazole 200 mg tablet RxNorm: 621550 1 Tablet(s) PO QD 019 03/19/2018 Inactive Celebrex 200 mg capsule RxNorm: 960590 1 Capsule(s) PO BID 02/06/20 18 05/20/2018 Inactive tramadol 50 mg tablet RxNorm: 082034 1 Tablet(s) PO TID as needed 1 04/08/2017 05/20/2018 Inactive gabapentin 300 mg capsule RxNorm: 925327 1 Capsule(s) PO BID 201705/20/2018 Inactive Diflucan 150 mg tablet RxNorm: 244240 1 Tablet(s) PO QD 01/20/2018 Inactive pramipexole 1 mg tablet RxNorm: 025717 1 Tablet(s) PO Q PM FOR RESTLESS LEGS (REPLACES REQUIP) 01/08/2018 02/11/2019 Inactive cyclobenzaprine 10 mg tablet RxNorm: 617282 1 Tablet(s) PO TID as needed for muscle spasm 12/17/2017 05/20/2018 Inactive pramipexole 1 mg tablet RxNorm: 948134 TAKE 1 TABLET BY MOUTH ONCE DAILY IN THE EVENING FOR RESTLESS LEGS (REPLACES REQUIP) 12/04/2017 01/05/2018 Inac tive Amaryl 4 mg tablet RxNorm: 681014 1 Tablet(s) PO BID replaces 2mg 0 11/05/2017 12/16/2017 Inactive Singulair 10 mg tablet RxNorm: 796232 1 Tablet(s) PO QHS for al lergies/lungs 10/30/2017 12/16/2017 Inactive Diflucan 100 mg tablet RxNorm: 004425 1 Tablet(s) PO QD 10/23/2017 Inactive Ativan 0.5 mg tablet RxNorm: 331240 TAKE 1 TABLET BY MOUTH THRE E TIMES DAILY 08/30/2017 11/20/2018 Inactive buspirone 5 mg tablet RxNorm: 699953 1 Tablet(s) PO TID 07/11/2017 Inactive propranolol 60 mg tablet RxNorm: 951180 1 Tablet(s) PO BID repl aces 40mg dose 06/26/2017 12/16/2017 Inactive Amaryl 4 mg tablet RxNorm: 570709 1 Tablet(s) PO BID replaces 2mg 0 06/12/2017 11/05/2017 Inactive omeprazole 40 mg capsule,delayed release RxNorm: 861178 1 Capsule(s) PO BID TAKE ONE CAPSULE BY MOUTH TWICE DAILY 05/30/2017 11/25/2017 Inactive pramipexole 1 mg tablet RxNorm: 054794 1 Tablet(s) PO Q PM for restless legs--replaces requip 05/30/2017 11/25/2017 Inactive amitriptyline 50 mg tablet RxNorm: 210653 1 Tablet(s) PO QHS 201709/16/2017 Inactive Diflucan 100 mg tablet RxNorm: 763344 1 Tablet(s) PO BID 05/07/2017 0 05/20/2017 Inactive nystatin (bulk) 100 million unit powder RxNorm: Application TO P BID 05/07/2017 05/20/2018 Inactive cholestyramine (with sugar) 4 gram oral powder RxNorm: 714780 1 Unit Dose PO QD 05/07/2017 01/20/2018 Inactive Ativan 0.5 mg tablet RxNorm: 319504 TAKE ONE TABLET BY MOUTH TH REE TIMES DAILY 05/01/2017 09/02/2017 Inactive Trulicity 1.5 mg/0.5 mL subcutaneous pen injector RxNorm: 15 22680 1 Unit Dose SQ WEEKLY 02/22/2017 03/23/2017 Inactive doxycycline hyclate 100 mg capsule RxNorm: 9602246 1 Capsule(s) PO BID 01/23/2017 02/05/2017 Inactive Amaryl 4 mg tablet RxNorm: 223170 1 Tablet(s) PO BID replaces 2mg 1 03/25/2016 05/22/2017 Inactive magnesium oxide 400 mg capsule RxNorm: 366951 1 Capsule(s) PO QD 07/18/2017 Inactive Ativan 0.5 mg tablet RxNorm: 876873 TAKE ONE TABLET BY MOUTH TH REE TIMES DAILY 01/17/2017 05/01/2017 Inactive Amaryl 2 mg tablet RxNorm: 948580 1 Tablet(s) PO BID 12/27/201601/22 Inactive Amaryl 2 mg tablet RxNorm: 934206 1 Tablet(s) PO BID 12/26/201612/26 Inactive Ativan 0.5 mg tablet RxNorm: 160505 TAKE ONE TABLET BY MOUTH TH REE TIMES DAILY 12/05/2016 01/18/2017 Inactive pramipexole 1 mg tablet RxNorm: 138761 1 Tablet(s) PO Q PM for restless legs--replaces requip 11/26/2016 05/30/2017 Inactive Mobic 15 mg tablet RxNorm: 289985 1 Tablet(s) PO QD 10/08/20162016 Inactive cyclobenzaprine 5 mg tablet RxNorm: 063409 1/2- 1 Tablet(s) PO TID 10/08/2016 10/17/2016 Inactive Ativan 0.5 mg tablet RxNorm: 289605 1 Tablet(s) PO TID 09/20/201607/2016 Inactive amitriptyline 50 mg tablet RxNorm: 672685 1 Tablet(s) PO QHS 201605/30/2017 Inactive propranolol 60 mg tablet RxNorm: 334421 1 Tablet(s) PO BID repl aces 40mg dose 09/19/2016 06/26/2017 Inactive Ativan 0.5 mg tablet RxNorm: 421839 1 Tablet(s) PO TID 08/20/2016 Inactive omeprazole 40 mg capsule,delayed release RxNorm: 319251 1 Capsule(s) PO BID TAKE ONE CAPSULE BY MOUTH TWICE DAILY 08/20/2016 05/30/2017 Inactive amitriptyline 50 mg tablet RxNorm: 974853 1 Tablet(s) PO QHS 201609/18/2016 Inactive pramipexole 1 mg tablet RxNorm: 752688 1 Tablet(s) PO Q PM for restless legs--replaces requip 07/23/2016 11/25/2016 Inactive Amaryl 2 mg tablet RxNorm: 854852 1 Tablet(s) PO BID 07/23/201612/27 Inactive propranolol 40 mg tablet RxNorm: 324721 1 Tablet(s) PO BID 07/13/19 17 09/18/2016 Inactive Ativan 0.5 mg tablet RxNorm: 754163 1 Tablet(s) PO QID 06/19/2016 Inactive Amaryl 2 mg tablet RxNorm: 857341 1 Tablet(s) PO BID 06/19/201607/22 Inactive Ativan 0.5 mg tablet RxNorm: 052765 1 Tablet(s) PO QID 06/19/2016 Inactive buspirone 5 mg tablet RxNorm: 100638 1 Tablet(s) PO TID 06/19/2016 Inactive Ativan 0.5 mg tablet RxNorm: 082670 1 Tablet(s) PO BID 05/24/2016 Inactive buspirone 5 mg tablet RxNorm: 331256 1 Tablet(s) PO TID 05/23/2016 Inactive Macrobid 100 mg capsule RxNorm: 997962 1 Capsule(s) PO QOD 05/03/19 17 10/07/2016 Inactive pramipexole 1 mg tablet RxNorm: 977391 Tablet(s) 1 Tabl et(s) PO QPM for restless legs--replaces requip 04/26/2016 06/24/2016 Inactive propranolol 40 mg tablet RxNorm: 058883 TAKE ONE TABLET BY MOUT H TWICE DAILY 04/26/2016 06/24/2016 Inactive Detrol LA 4 mg capsule,extended release RxNorm: 059651 1 Capsul e(s) PO QHS 04/03/2016 05/02/2016 Inactive prednisone 20 mg tablet RxNorm: 764256 1 Tablet(s) PO QD 02/29/2016 0 03/04/2016 Inactive Actos 30 mg tablet RxNorm: 054730 TAKE ONE TABLET BY MOUTH ONCE DAILY 02/27/2016 12/19/2016 Inactive clindamycin 300 mg capsule RxNorm: 804640 1 Capsule(s) PO TID 02/0102/08/2016 Inactive Flagyl 500 mg tablet RxNorm: 508335 1 Tablet(s) PO BID 02/02/201609/2015 Inactive omeprazole 40 mg capsule,delayed release RxNorm: 615752 TAKE ONE CAPSULE BY MOUTH TWICE DAILY 01/15/2016 07/12/2016 Inactive gabapentin 300 mg capsule RxNorm: 286712 1 Capsule(s) PO QAM an d 2 po q HS 01/05/2016 06/18/2016 Inactive gabapentin 300 mg capsule RxNorm: 318111 1 Capsule(s) P O BID 1 Capsule(s) PO QHS 12/05/2015 01/04/2016 Inactive cyclobenzaprine 10 mg tablet RxNorm: 774348 1 Tablet(s) PO TID for spasm as needed for muscle spasm 12/05/2015 06/18/2016 Inactive ciprofloxacin 250 mg tablet RxNorm: 302820 1 Tablet(s) PO BID 12/0412/14/2015 Inactive pramipexole 1 mg tablet RxNorm: 225774 Tablet(s) 1 Tabl et(s) PO QPM for restless legs--replaces requip 11/07/2015 11/26/2016 Inactive Januvia 100 mg tablet RxNorm: 876369 1 Tablet(s) PO QD 10/26/201504/2015 Inactive propranolol 40 mg tablet RxNorm: 506633 TAKE ONE TABLET BY MOUT H TWICE DAILY 10/25/2015 04/21/2016 Inactive gabapentin 300 mg capsule RxNorm: 877937 1 Capsule(s) PO QHS 201512/04/2015 Inactive Cipro 500 mg tablet RxNorm: 792878 1 Tablet(s) PO BID 10/05/201511/2015 Inactive pramipexole 1 mg tablet RxNorm: 249526 Tablet(s) 1 Tabl et(s) PO QPM for restless legs--replaces requip 10/04/2015 11/02/2015 Inactive propranolol 40 mg tablet RxNorm: 748720 TAKE ONE TABLET BY MOUT H TWICE DAILY 09/26/2015 10/24/2015 Inactive Amaryl 2 mg tablet RxNorm: 689338 1 Tablet(s) PO QD 09/15/20152016 Inactive gabapentin 300 mg capsule RxNorm: 034308 1 Capsule(s) PO QHS 201510/14/2015 Inactive buspirone 5 mg tablet RxNorm: 659739 1 Tablet(s) PO TID 09/15/2015 Inactive pramipexole 1 mg tablet RxNorm: 969659 Tablet(s) 1 Tabl et(s) PO QPM for restless legs--replaces requip 09/08/2015 10/03/2015 Inactive pramipexole 1 mg tablet RxNorm: 716671 1 Tablet(s) PO Q PM for restless legs--replaces requip 08/08/2015 09/08/2015 Inactive Amaryl 2 mg tablet RxNorm: 148530 1 Tablet(s) PO QD 07/07/20152015 Inactive pramipexole 1 mg tablet RxNorm: 583861 1 Tablet(s) PO Q PM for restless legs--replaces requip 07/05/2015 08/03/2015 Inactive ropinirole 2 mg tablet RxNorm: 276590 TAKE ONE TABLET BY MOUTH TWICE DAILY 05/09/2015 09/14/2015 Inactive Diflucan 100 mg tablet RxNorm: 810372 1 Tablet(s) PO QD 03/30/2015 Inactive propranolol 40 mg tablet RxNorm: 861086 1 Tablet(s) PO BID 02/24/20 15 08/21/2015 Inactive [SAVINGS FOR UNINSURED PATIE NTS -- BIN:704621, PCN: ASPROD1, Group: AME08, ID# [id number], Process claim through [employer], for questions: . THIS IS NOT INSURANCE.] Flagyl 500 mg tablet RxNorm: 100896 1 Tablet(s) PO BID 02/03/201502/2015 Inactive Cipro 500 mg tablet RxNorm: 637697 1 Tablet(s) PO BID 02/03/201502/01 Inactive Carafate 1 gram tablet RxNorm: 754851 1 Tablet(s) PO QID make i nto slurry 02/03/2015 09/14/2015 Inactive ondansetron HCl 4 mg tablet RxNorm: 859719 1 Tablet(s) PO Q4H as needed for nausea 12/29/2014 01/04/2016 Inactive Diflucan 100 mg tablet RxNorm: 409274 1 Tablet(s) PO QD 12/29/2014 Inactive Keflex 500 mg capsule RxNorm: 447152 1 Capsule(s) PO TID 12/29/2014 1 03/09/2014 Inactive omeprazole 40 mg capsule,delayed release RxNorm: 496206 1 Capsu le(s) PO BID 12/27/2014 12/21/2015 Inactive [SAVINGS FOR UNINSUR ED PATIENTS -- BIN:652272, PCN: ASPROD1, Group: AME08, ID# [id number], Process claim through MedImpact, for questions: . THIS IS NOT INSURANCE.] ropinirole 2 mg tablet RxNorm: 198935 1 Tablet(s) PO BID 09/29/2014 0 03/27/2015 Inactive [SAVINGS FOR UNINSURED PATIENTS -- BIN:0 54780, PCN: ASPROD1, Group: AME08, ID# [id number], Process claim through MedImpact, for questions: . THIS IS NOT INSURANCE.] buspirone 5 mg tablet RxNorm: 102298 1 Tablet(s) PO TID 09/17/2014 Inactive ropinirole 2 mg tablet RxNorm: 255716 1 Tablet(s) PO BID 09/02/2014 0 09/28/2014 Inactive [SAVINGS FOR UNINSURED PATIENTS -- BIN:0 89952, PCN: ASPROD1, Group: AME08, ID# [id number], Process claim through MedImpact, for questions: . THIS IS NOT INSURANCE.] Zyrtec 10 mg tablet RxNorm: 3219799 1 Tablet(s) PO QD 09/02/201412/02 Inactive propranolol 40 mg tablet RxNorm: 601864 1 Tablet(s) PO BID 07/21/19 15 02/23/2015 Inactive [SAVINGS FOR UNINSURED PATIE NTS -- BIN:852658, PCN: ASPROD1, Group: AME08, ID# [id number], Process claim through MedImp[employer], for questions: . THIS IS NOT INSURANCE.] ropinirole 2 mg tablet RxNorm: 318249 1 Tablet(s) PO QHS 05/14/2014 0 09/01/2014 Inactive [SAVINGS FOR UNINSURED PATIENTS -- BIN:0 49743, PCN: ASPROD1, Group: AME08, ID# [id number], Process claim through MedImpact, for questions: . THIS IS NOT INSURANCE.] cyclobenzaprine 10 mg tablet RxNorm: 851242 1 Tablet(s) PO QHS for spasm 04/06/2014 09/01/2014 Inactive ipratropium-albuterol 0.5 mg-3 mg(2.5 mg base)/3 mL ne bulization soln RxNorm: 2815093 1 Unit Dose INH Q4H 03/16/2014 No Stop Date Active [SAVINGS FOR UNINSURED PATIENTS -- BIN:103915, PCN: ASPROD1, Group: AME08, ID# [id number], Process claim through MedImpact, for questions: . THIS IS NOT INSURANCE.] prednisone 20 mg tablet RxNorm: 401000 1 Tablet(s) PO BID 03/09/2014 03/15/2014 Inactive [SAVINGS FOR UNINSURED PATIENTS -- BIN:0 41791, PCN: ASPROD1, Group: AME08, ID# [id number], Process claim through MedImp[employer], for questions: . THIS IS NOT INSURANCE.] ipratropium-albuterol 0.5 mg-3 mg(2.5 mg base)/3 mL ne bulization soln RxNorm: 5381878 1 Unit Dose INH Q4H 03/09/2014 03/15/2014 Inactive [SAVINGS FOR UNINSURED PATIENTS -- BIN:520341, PCN: ASPROD1, Group: AME08, ID# [id number], Process claim through MedImpact, for questions: . THIS IS NOT INSURANCE.] Levaquin 500 mg tablet RxNorm: 752941 1 Tablet(s) PO QD 03/09/2014 Inactive [SAVINGS FOR UNINSURED PATIENTS -- BIN:0 36546, PCN: ASPROD1, Group: AME08, ID# [id number], Process claim through MedImpact, for questions: . THIS IS NOT INSURANCE.] Carafate 1 gram tablet RxNorm: 741133 1 Tablet(s) PO AC & HS ma ke into slurry 02/09/2014 09/01/2014 Inactive [SAVINGS FOR UNINSUR ED PATIENTS -- BIN:542587, PCN: ASPROD1, Group: AME08, ID# [id number], Process claim through MedImpact, for questions: . THIS IS NOT INSURANCE.] Fioricet 50 mg-300 mg-40 mg capsule RxNorm: 3726521 1-2 Capsule(s) PO Q4H as needed for headache --max of 6 a day 02/09/2014 09/01/2014 Inactive [SAVINGS FOR UNINSURED PATIENTS -- BIN:762166, PCN: ASPROD1, Group: AME08, ID# [id number], Process claim through MedImpact, for questions: . THIS IS NOT INSURANCE.] propranolol 40 mg tablet RxNorm: 646484 1 Tablet(s) PO BID 12/08/19 14 06/04/2014 Inactive [SAVINGS FOR UNINSURED PATIE NTS -- BIN:175923, PCN: ASPROD1, Group: AME08, ID# [id number], Process claim through MedImpact, for questions: . THIS IS NOT INSURANCE.] buspirone 5 mg tablet RxNorm: 542844 1 Tablet(s) PO TID 12/02/2013 Inactive omeprazole 40 mg capsule,delayed release RxNorm: 356323 1 Capsu le(s) PO BID 11/25/2013 11/19/2014 Inactive [SAVINGS FOR UNINSUR ED PATIENTS -- BIN:039918, PCN: ASPROD1, Group: AME08, ID# [id number], Process claim through MedImpact, for questions: . THIS IS NOT INSURANCE.] ropinirole 2 mg tablet RxNorm: 968654 1 Tablet(s) PO QHS 11/10/2013 0 05/08/2014 Inactive [SAVINGS FOR UNINSURED PATIENTS -- BIN:0 05855, PCN: ASPROD1, Group: AME08, ID# [id number], Process claim through MedImpact, for questions: . THIS IS NOT INSURANCE.] Cipro 500 mg tablet RxNorm: 972577 1 Tablet(s) PO BID 10/21/201312/03 Inactive [SAVINGS FOR UNINSURED PATIENTS -- BIN:0 76015, PCN: ASPROD1, Group: AME08, ID# [id number], Process claim through MedImpact, for questions: . THIS IS NOT INSURANCE.] hydroxyzine HCl 25 mg tablet RxNorm: 047110 1 Tablet(s) PO Q4-6 H as needed 10/05/2013 01/04/2016 Inactive [SAVINGS FOR UNINSUR ED PATIENTS -- BIN:676339, PCN: ASPROD1, Group: AME08, ID# [id number], Process claim through MedImpact, for questions: . THIS IS NOT INSURANCE.] triamcinolone acetonide 0.1 % topical cream RxNorm: 5716803 Appl ication TOP BID 10/05/2013 09/01/2014 Inactive [SAVINGS FOR UNINSUR ED PATIENTS -- BIN:677963, PCN: ASPROD1, Group: AME08, ID# [id number], Process claim through MedImpact, for questions: . THIS IS NOT INSURANCE.] albuterol sulfate HFA 90 mcg/actuation aerosol inhaler RxNor m: 6643589 2 Puff(s) INH Q4H as needed for cough 10/01/2013 12/22/2013 Inactive [MAKSIM INGS FOR UNINSURED PATIENTS -- BIN:980811, PCN: ASPROD1, Group: AME08, ID# [id number], Process claim through MedImpact, for questions: . THIS IS NOT INSURANCE.] propranolol 40 mg tablet RxNorm: 162216 1 Tablet(s) PO BID 09/02/19 14 11/29/2013 Inactive [SAVINGS FOR UNINSURED PATIE NTS -- BIN:333231, PCN: ASPROD1, Group: AME08, ID# [id number], Process claim through MedImpact, for questions: . THIS IS NOT INSURANCE.] propranolol 40 mg tablet RxNorm: 337592 1 Tablet(s) PO BID 08/05/19 14 08/31/2013 Inactive [SAVINGS FOR UNINSURED PATIE NTS -- BIN:560797, PCN: ASPROD1, Group: AME08, ID# [id number], Process claim through MedImpact, for questions: . THIS IS NOT INSURANCE.] Toprol XL 50 mg tablet,extended release RxNorm: 225483 1 Tablet (s) PO QHS 07/23/2013 08/03/2013 Inactive Macrobid 100 mg capsule RxNorm: 320787 1 Capsule(s) PO BID 07/04/19 14 07/09/2013 Inactive Toprol XL 50 mg tablet,extended release RxNorm: 902438 1 Tablet (s) PO QHS 05/28/2013 06/26/2013 Inactive ciprofloxacin 500 mg tablet RxNorm: 050087 1 Tablet(s) PO BID 05/2706/02/2013 Inactive Bystolic 5 mg tablet RxNorm: 684198 1 Tablet(s) PO QD 05/27/201305/03 Inactive ropinirole 2 mg tablet RxNorm: 155807 1 Tablet(s) PO QHS 04/22/2013 0 11/09/2013 Inactive Cipro 250 mg tablet RxNorm: 768551 1 Tablet(s) PO BID 04/06/201311/2013 Inactive ropinirole 2 mg tablet RxNorm: 614152 1 Tablet(s) PO QHS 02/17/2013 0 04/21/2013 Inactive Amaryl 2 mg tablet RxNorm: 257072 1 Tablet(s) PO QAM 11/11/201211/10 Inactive Amaryl 2 mg tablet RxNorm: 866135 1 Tablet(s) PO QAM 11/11/201204/05 Inactive omeprazole 40 mg capsule,delayed release RxNorm: 620510 1 Capsu le(s) PO BID 08/14/2012 08/08/2013 Inactive Bystolic 5 mg tablet RxNorm: 145874 1 Tablet(s) PO QD 08/14/201205/03 Inactive propranolol 60 mg tablet RxNorm: 853613 Tablet(s) PO TAKE 1 TAB LET TWICE DAILY 08/01/2012 09/01/2012 Inactive Bystolic 5 mg tablet RxNorm: 262162 1 Tablet(s) PO QD 07/21/201207/02 Inactive Bystolic 5 mg tablet RxNorm: 788241 1 Tablet(s) PO QD 07/21/201207/03 Inactive Prilosec 40 mg capsule,delayed release RxNorm: 088227 1 Capsule (s) PO BID 06/24/2012 07/21/2012 Inactive buspirone 10 mg tablet RxNorm: 366348 1 Tablet(s) PO TID 05/08/2012 0 05/23/2016 Inactive Valium 10 mg tablet RxNorm: 276845 1 Tablet(s) PO BID 04/02/201207/03 Inactive Endocet 10 mg-325 mg tablet RxNorm: 4113651 1 Tablet(s) PO QID 03/0607/21/2012 Inactive as needed for severe pain Valium 10 mg tablet RxNorm: 285853 1 Tablet(s) PO BID 02/27/2012 No S top Date Active Endocet 10 mg-325 mg tablet RxNorm: 0255566 1 Tablet(s) PO QID 02/0203/27/2012 Inactive as needed for severe pain Endocet 10 mg-325 mg tablet RxNorm: 9472947 1 Tablet(s) PO QID 01/0302/26/2012 Inactive as needed for severe pain Valium 10 mg tablet RxNorm: 532664 1 Tablet(s) PO BID 01/29/2012 No S top Date Active Protonix 40 mg tablet,delayed release RxNorm: 846709 1 Tablet(s ) PO QD 01/28/2012 07/21/2012 Inactive metformin ER 500 mg tablet,extended release 24 hr RxNorm: 86 0977 1 Tablet(s) PO QD 12/26/2011 07/20/2012 Inactive Trazadone 150 mg Tablet RxNorm: 1 Tablet(s) PO QHS prn sleep 1 04/23/2012 Inactive Endocet 10 mg-325 mg tablet RxNorm: 5322317 1 Tablet(s) PO QID 12/0301/24/2012 Inactive as needed for severe pain Nexium 40 mg capsule,delayed release RxNorm: 947037 1 Capsule(s ) PO QD 12/26/2011 01/27/2012 Inactive Symbicort 160 mcg-4.5 mcg/actuation HFA Aerosol Inhaler RxNo rm: 5167619 2 Puff(s) INH BID 12/04/2011 07/21/2012 Inactive Endocet 10 mg-325 mg tablet RxNorm: 8884363 1 Tablet(s) PO QID 11/0312/25/2011 Inactive as needed for severe pain metformin ER 500 mg tablet,extended release 24 hr RxNorm: 86 0977 1 Tablet(s) PO QD 11/20/2011 12/19/2011 Inactive metformin ER 500 mg tablet,extended release 24 hr RxNorm: 86 0977 1 Tablet(s) PO QD 11/20/2011 11/19/2011 Inactive amitriptyline 100 mg tablet RxNorm: 542384 Tablet(s) PO QHS 1 a nd 1/2 tabs QHS 11/12/2011 11/13/2011 Inactive Valium 10 mg tablet RxNorm: 311832 1 Tablet(s) PO BID 11/09/2011 No S top Date Active Endocet 10 mg-325 mg tablet RxNorm: 4353820 1 Tablet(s) PO QID 10/0211/14/2011 Inactive as needed for severe pain Aricept 10 mg Tab RxNorm: 911687 1 Tablet(s) PO QD 10/05/2011 013 Inactive Valium 10 mg tablet RxNorm: 859561 1 Tablet(s) PO BID 10/05/2011 No S top Date Active Endocet 10 mg-325 mg Tab RxNorm: 6222897 1 Tablet(s) PO QID 012 10/09/2011 Inactive as needed for severe pain Aricept 10 mg Tab RxNorm: 417511 1 Tablet(s) PO QD 08/14/2011 012 Inactive Endocet 10 mg-325 mg Tab RxNorm: 7031019 1 Tablet(s) PO QID 012 08/31/2011 Inactive as needed for severe pain Valium 10 mg Tab RxNorm: 567010 1 Tablet(s) PO BID 08/02/2011 No Stop Date Active propranolol 60 mg tablet RxNorm: 731770 1 Tablet(s) PO BID 07/26/19 12 09/11/2011 Inactive amitriptyline 100 mg tablet RxNorm: 257797 Tablet(s) PO QHS 1 a nd 2 tabs QHS 06/20/2011 09/11/2011 Inactive buspirone 10 mg tablet RxNorm: 947409 1 Tablet(s) PO BID 06/18/2011 0 09/15/2011 Inactive propranolol 60 mg Tab RxNorm: 488122 1 Tablet(s) PO BID 06/18/2011 Inactive gabapentin 800 mg Tab RxNorm: 354800 1 Tablet(s) PO BID 06/18/2011 Inactive ropinirole 2 mg tablet RxNorm: 529851 1 Tablet(s) PO QHS 05/29/2011 0 08/26/2011 Inactive trimethoprim 100 mg Tab RxNorm: 730127 1 Tablet(s) PO QHS 05/29/2011 07/21/2012 Inactive Endocet 10 mg-325 mg Tab RxNorm: 0805673 1 Tablet(s) PO QID 012 2011 Inactive as needed for severe pain Valium 10 mg Tab RxNorm: 327132 1 Tablet(s) PO QHS N eed to take med as prescribed. this is a 40 day RX. No early fills. 05/17/2011 05/20/2018 Inactive propranolol 60 mg Tab RxNorm: 064477 1 Tablet(s) PO BID 04/16/2011 Inactive Neurontin 800 mg Tab RxNorm: 568689 1 Tablet(s) PO QHS 04/05/201103/2011 Inactive Endocet 10 mg-325 mg Tab RxNorm: 1068358 1 Tablet(s) PO QID 012 05/02/2011 Inactive as needed for severe pain oxycodone-acetaminophen 10 mg-325 mg tablet RxNorm: 6051437 1 Ta blet(s) PO Q4H 03/28/2011 05/19/2012 Inactive Valium 10 mg Tab RxNorm: 785542 1 Tablet(s) PO QHS 03/28/2011 012 Inactive buspirone 10 mg Tab RxNorm: 761343 1 Tablet(s) PO BID 03/27/201106/02 Inactive propranolol 60 mg Tab RxNorm: 002703 1 Tablet(s) PO BID 03/19/2011 Inactive Klor-Con M20 20 mEq Tab RxNorm: 5584790 1 Tablet(s) PO QD 03/19/2011 07/21/2012 Inactive Aricept 10 mg Tab RxNorm: 772259 1 Tablet(s) PO QD 02/27/2011 012 Inactive propranolol 60 mg Tab RxNorm: 202584 1 Tablet(s) PO BID 02/19/2011 Inactive omeprazole 40 mg capsule,delayed release RxNorm: 584102 1 Capsu le(s) PO BID 01/24/2011 05/23/2011 Inactive clindamycin 300 mg capsule RxNorm: 838034 1 Capsule(s) PO TID 01/2402/02/2011 Inactive propranolol 60 mg Tab RxNorm: 188504 1 Tablet(s) PO BID 01/22/2011 No Stop Date Active nystatin 100,000 unit/g Topical Cream RxNorm: 753687 Applicatio n TOP BID 01/15/2011 01/14/2011 Inactive to rash for 2-4 week s Diflucan 200 mg Tab RxNorm: 120960 1 Tablet(s) PO QD 01/15/201101/28 Inactive buspirone 10 mg Tab RxNorm: 291965 1 Tablet(s) PO BID 01/08/201103/05 Inactive Valium 10 mg Tab RxNorm: 027133 1 Tablet(s) PO QHS 01/05/2011 012 Inactive Diflucan 200 mg Tab RxNorm: 446884 1 Tablet(s) PO QD 01/01/201101/14 Inactive Diflucan 200 mg Tab RxNorm: 864632 1 Tablet(s) PO QD 12/18/201012/31 Inactive Valium 10 mg Tab RxNorm: 559408 1 Tablet(s) PO QHS 12/12/2010 011 Inactive Diflucan 200 mg Tab RxNorm: 242878 1 Tablet(s) PO QD 12/07/201012/18 Inactive Aricept 10 mg Tab RxNorm: 167334 1 Tablet(s) PO QD 11/20/2010 011 Inactive ropinirole 1 mg Tab RxNorm: 567002 1 Tablet(s) PO QHS 11/16/201005/03 Inactive enalapril maleate 5 mg Tab RxNorm: 789865 1 Tablet(s) PO QD 011 05/20/2018 Inactive buspirone 10 mg Tab RxNorm: 001402 1 Tablet(s) PO BID 11/16/201012/02 Inactive Valium 10 mg Tab RxNorm: 725596 1 Tablet(s) PO QHS 11/07/2010 011 Inactive Pyridium 100 mg Tab RxNorm: 6641934 1 Tablet(s) PO TID 11/02/201004/2010 Inactive Macrobid 100 mg Cap RxNorm: 5485251 1 Capsule(s) PO BID 11/02/2010 Inactive buspirone 10 mg Tab RxNorm: 184229 1 Tablet(s) PO QHS 10/18/201005/02 Inactive propranolol 60 mg Tab RxNorm: 281779 1 Tablet(s) PO BID 09/18/2010 Inactive Valium 10 mg Tab RxNorm: 144422 1 Tablet(s) PO QHS 09/05/2010 011 Inactive Aricept 10 mg Tab RxNorm: 197653 1 Tablet(s) PO QD 08/14/2010 011 Inactive Valium 10 mg Tab RxNorm: 438090 1 Tablet(s) PO QHS 06/26/2010 011 Inactive ropinirole 1 mg Tab RxNorm: 489380 1 Tablet(s) PO QHS 06/19/201010/02 Inactive omeprazole 40 mg Cap, delayed release RxNorm: 040874 1 Capsule( s) PO QD 06/07/2010 10/04/2010 Inactive Endocet 10 mg-325 mg Tab RxNorm: 9618912 1 Tablet(s) PO QID as needed for severe pain 06/07/2010 03/07/2011 Inactive Endocet 10 mg-325 mg Tab RxNorm: 6663987 1 Tablet(s) PO QID as needed for severe pain 05/04/2010 06/02/2010 Inactive Valium 10 mg Tab RxNorm: 578019 1 Tablet(s) PO QHS 05/01/2010 011 Inactive propranolol 60 mg Tab RxNorm: 308718 1 Tablet(s) PO BID 04/03/2010 Inactive Valium 10 mg Tab RxNorm: 852428 1 Tablet(s) PO QHS 03/28/2010 011 Inactive omeprazole 40 mg Cap, Delayed Release RxNorm: 191566 1 Capsule( s) PO QD 03/28/2010 06/06/2010 Inactive Endocet 10 mg-325 mg Tab RxNorm: 5233718 1 Tablet(s) PO QID prn ari n 03/27/2010 05/20/2018 Inactive Valium 10 mg Tab RxNorm: 893303 1 Tablet(s) PO QHS 02/20/2010 011 Inactive Diflucan 100 mg Tab RxNorm: 681675 1 Tablet(s) PO BID 01/23/201003/2009 Inactive Diflucan 100 mg Tab RxNorm: 029575 1 Tablet(s) PO BID 01/05/201001/02 Inactive Aricept 10 mg Tab RxNorm: 258181 1 Tablet(s) PO QD 12/01/2009 011 Inactive OxyContin 20 mg 12 hr Tab RxNorm: 0532949 1 Tablet(s) PO BID 200904/05/2010 Inactive oxycodone-acetaminophen 10 mg-325 mg Tab RxNorm: 7462819 1 Table t(s) PO Q4H 11/22/2009 11/26/2009 Inactive Phenergan 25 mg Tab RxNorm: 306321 1 Tablet(s) PO PRN MIGRAINE 11/0303/07/2011 Inactive Demerol 100 mg Tab RxNorm: 569930 1 Tablet(s) PO PRN MIGRAINE 11/2203/07/2011 Inactive Oxycodone-Acetaminophen 10 mg-325 mg Tab RxNorm: 0792522 1 Table t(s) PO Q4H 10/11/2009 10/15/2009 Inactive Percocet 10 mg-325 mg Tab RxNorm: 4876237 1 Tablet(s) PO Q4H 200910/24/2009 Inactive propranolol 60 mg Tab RxNorm: 685775 1 Tablet(s) PO BID 08/29/2009 Inactive Valium 10 mg Tab RxNorm: 312565 1 Tablet(s) PO QHS 08/16/2009 010 Inactive Keflex 500 mg Cap RxNorm: 614444 1 Capsule(s) PO BID 07/25/200907/31 Inactive Hydroxyzine 25 mg Tab RxNorm: 860393 1 Tablet(s) PO TID 07/25/2009 Inactive Prednisone 20 mg Tab RxNorm: 340653 1 Tablet(s) PO BID 07/25/2009 Inactive Demerol 100 mg Tab RxNorm: 010653 1 Tablet(s) PO PRN MIGRAINE 07/25 No Stop Date Active Ropinirole 1 mg Tab RxNorm: 347415 1 Tablet(s) PO HS 07/20/200902/14 Inactive Valium 10 mg Tab RxNorm: 919307 1 Tablet(s) PO QHS 07/18/2009 010 Inactive Endocet 10 mg-325 mg Tab RxNorm: 7046916 1 Tablet(s) PO TID 010 07/07/2009 Inactive Demerol 100 mg Tab RxNorm: 927363 1 Tablet(s) PO PRN MIGRAINE 06/08 No Stop Date Active Ropinirole 1 mg Tab RxNorm: 078666 1 Tablet(s) PO HS 05/16/200907/14 Inactive ipratropium-albuterol 0.5 mg-3 mg(2.5 mg base)/3 mL ne bulization soln RxNorm: 2962748 1 Unit Dose INH Q4H as needed No Start Date Active diltiazem CD 240 mg capsule,extended release 24 hr RxNorm: 8 11167 1 Capsule(s) PO QD No Start Date Active metoprolol tartrate 25 mg tablet RxNorm: 758876 1 Tablet(s) PO BID No Start Date Active MagOx 400 mg (241.3 mg magnesium) tablet RxNorm: 044478 1 Table t(s) PO BID No Start Date Active Vitamin B12 1000mcg Tablet RxNorm: 1 Tablet(s) PO QD No Start Date Active Vitamin D3 5,000 unit tablet RxNorm: 940717 1 Tablet(s) PO QD No Star t Date Active Tylenol Arthritis Pain 650 mg tablet,extended release RxNorm : 2436482 1 Tablet(s) PO Q4H No Start Date Active Lotrimin AF 2 % topical powder RxNorm: 739989 1 Application TOP BID No Start Date Active enalapril maleate 5 mg Tab RxNorm: 082553 1 Tablet(s) PO QD No Star t Date 07/20/2012 Inactive Demerol 100 mg Tab RxNorm: 545987 Tablet(s) PO PRN MIGRAINE No Star t Date 06/02/2009 Inactive metformin 500 mg tablet RxNorm: 483179 1 Tablet(s) PO QD No Start D ate 04/05/2013 Inactive Breo Ellipta 100 mcg-25 mcg/dose powder for inhalation RxNor m: 7017686 1 Puff(s) INH BID No Start Date 01/04/2016 Inactive Mag-Oxide 400 mg Tab RxNorm: 275741 1 Tablet(s) PO QD No Start Date 0 07/21/2012 Inactive Cipro 500 mg Tab RxNorm: 971116 1 Tablet(s) PO QD No Start Date 04/05 Inactive Ativan 0.5 mg tablet RxNorm: 034939 1 Tablet(s) PO TID as needed No Start Date 05/06/2019 Inactive melatonin 3 mg tablet RxNorm: 290588 2 Tablet(s) PO QHS No Start Da te 08/19/2018 Inactive buspirone 10 mg Tab RxNorm: 081883 1 Tablet(s) PO QD No Start Date Inactive sucralfate 100 mg/mL Oral Susp RxNorm: 773609 2 Teaspoon(s) PO QID No Start Date 07/21/2012 Inactive hydrocodone 5 mg-acetaminophen 325 mg tablet RxNorm: 378757 1 Tablet(s) PO Q4H as needed No Start Date 08/19/2018 Inactive Amaryl 2 mg tablet RxNorm: 790271 1 Tablet(s) PO BID No Start Date Inactive OxyContin 20 mg 12 hr Tab RxNorm: 6692016 1 Tablet(s) PO BID No Sta rt Date 11/27/2009 Inactive propranolol 40 mg tablet RxNorm: 250412 1 Tablet(s) PO QID No Start Date 01/19/2018 Inactive Trazadone 150 mg Tablet RxNorm: 1-2 Tablet(s) PO QHS prn sleep No Start Date 08/09/2010 Inactive propranolol 60 mg Tab RxNorm: 524277 1/2 Tablet(s) PO BID No Start Date 01/21/2011 Inactive insulin NPH and regular human subcutaneous RxNorm: 8090816 subcu taneous No Start Date 11/20/2018 Inactive Ativan 0.5 mg tablet RxNorm: 500352 1 Tablet(s) PO QID No Start Date 06/18/2016 Inactive Vasotec 5 mg Tab RxNorm: 958521 1 Tablet(s) PO BID No Start Date 06/2011 Inactive Toprol XL 50 mg tablet,extended release RxNorm: 545124 1 Tablet (s) PO BID No Start Date 04/05/2013 Inactive Ativan 0.5 mg tablet RxNorm: 957655 1 Tablet(s) PO TID No Start Date 05/25/2016 Inactive Klor-Con M20 20 mEq Tab RxNorm: 7588865 1 Tablet(s) PO QD No Start Date 03/19/2011 Inactive sumatriptan 100 mg tablet RxNorm: 520532 1 Tablet(s) PO at headache onset--repeat in 2hrs if remains No Start Date 07/21/2012 Inactive propranolol 60 mg Tab RxNorm: 934676 1 Tablet(s) PO BID No Start Da te 08/28/2009 Inactive Cholestyramine Light 4 gram Oral Powder RxNorm: 0376756 1 Unit Dose PO QD in water No Start Date 07/21/2012 Inactive nystatin 100,000 unit/g Topical Powder RxNorm: 045594 Applicati on TOP BID No Start Date 07/21/2012 Inactive vitamin [id number] acid sublingual RxNorm: sublingual No Start Date 07/05/2013 Inactive cyclobenzaprine 5 mg tablet RxNorm: 978943 1/2-1 Tablet (s) PO TID as needed for muscle spasm No Start Date 07/18/2017 Inactive tramadol 50 mg tablet RxNorm: 680423 2 Tablet(s) PO TID as need ed for pain No Start Date 09/01/2014 Inactive aspirin 81 mg Tab RxNorm: 748923 1 Tablet(s) PO QOD No Start Date 04/2013 Inactive Vitamin B12 1000mcg Tablet RxNorm: 1 Tablet(s) PO QD No Start Date 07/18/2017 Inactive cholestyramine (with sugar) 4 gram oral powder RxNorm: 57793 3 1 Unit(s) PO QD as needed No Start Date 05/20/2018 Inactive ProAir HFA 90 mcg/Actuation Aerosol Inhaler RxNorm: 288983 2 Puff(s) INH Q4H prn shortness of breath No Start Date 07/21/2012 Inactive pravastatin 10 mg Tab RxNorm: 236926 1 Tablet(s) PO QD No Start Date 07/21/2012 Inactive gabapentin 800 mg Tab RxNorm: 888785 1 Tablet(s) PO BID No Start Da te 06/03/2011 Inactive Endocet 10 mg-325 mg Tab RxNorm: 0798346 1 Tablet(s) PO TID No Star t Date 06/02/2009 Inactive Naproxen 500 mg Tab RxNorm: 999063 1 Tablet(s) PO BID No Start Date 0 04/05/2010 Inactive Valium 10 mg Tab RxNorm: 237438 1 Tablet(s) PO BID No Start Date 07/04 Inactive enalapril maleate 5 mg Tab RxNorm: 121609 1 Tablet(s) PO QD No Star t Date 11/15/2010 Inactive doxepin 10 mg capsule RxNorm: 6333318 2 Capsule(s) PO QHS No Start Date 09/17/2018 Inactive MS Contin 15 mg Tab RxNorm: 089266 1 Tablet(s) PO BID No Start Date 0 09/18/2010 Inactive buspirone 5 mg tablet RxNorm: 141375 1 Tablet(s) PO TID No Start Da te 12/01/2013 Inactive Meeker 3 Fish Oil Cap RxNorm: 1 Capsule(s) PO QD No Start Date 07/03 Inactive enalapril maleate 5 mg Tab RxNorm: 686253 1/2 Tablet(s) PO QD No St art Date 03/07/2011 Inactive Lyrica 75 mg capsule RxNorm: 426527 1 Capsule(s) PO QHS No Start Da te 02/08/2014 Inactive Lopressor 100 mg tablet RxNorm: 745994 1 Tablet(s) PO BID No Start Date 06/08/2018 Inactive Lantus Solostar U-100 Insulin 100 unit/mL (3 mL) subcu taneous pen RxNorm: 834288 45 Unit(s) SQ QAM No Start Date 05/20/2018 Inactive aspirin 81 mg tablet RxNorm: 179789 1 Tablet(s) PO QD No Start Date 0 09/14/2015 Inactive insulin NPH isophane U-100 human subcutaneous RxNorm: 765409 beckwith bcutaneous No Start Date 04/20/2019 Inactive sumatriptan 100 mg tablet RxNorm: 065828 1 Tablet(s) PO at headache onset. May repeat 1 in two hours if headache remains. Max of 2 per 24 hours No Start Date 04/01/2018 Inactive gabapentin 300 mg capsule RxNorm: 184721 1 Capsule(s) PO QHS No Sta rt Date 02/04/2018 Inactive Topamax 25 mg Tab RxNorm: 965763 Oral No Start Date 03/07/2011 In active Senokot-S 8.6 mg-50 mg Tab RxNorm: 8603733 1 Tablet(s) PO QD No Sta rt Date 03/07/2011 Inactive metformin ER 500 mg 24 hr tablet,extended release RxNorm: 18 25058 1 Tablet(s) PO QD No Start Date 05/20/2018 Inactive Symbicort 80 mcg-4.5 mcg/actuation HFA Aerosol Inhaler RxNor m: 2263763 2 Puff(s) INH BID No Start Date 04/05/2013 Inactive propranolol 60 mg Tab RxNorm: 258631 1/2 Tablet(s) PO BID No Start Date 07/21/2012 Inactive metformin ER 500 mg 24 hr tablet,extended release RxNorm: 18 91077 2 Tablet(s) PO QD No Start Date 12/16/2017 Inactive Insulin Syringe 1 mL 29 gauge x 1/2" RxNorm: 2 s yringes daily with insulin Dx: E11.65 No Start Date 10/07/2018 Inactive Amitriptyline 75 mg Tab RxNorm: 650384 1 Tablet(s) PO QHS No Start Date 10/23/2009 Inactive donepezil 10 mg Tab RxNorm: 916188 1 Tablet(s) PO QD No Start Date Inactive Lantus Solostar U-100 Insulin 100 unit/mL (3 mL) subcu taneous pen RxNorm: 422975 36 Unit(s) SQ QAM No Start Date 12/24/2017 Inactive Miacalcin 200 unit/Actuation Nasal [place] Aerosol RxNorm: 261 204 1 [place] NASAL QD Alternate nostrils each day No Start Date 04/05/2010 Inactive Amitriptyline 150 mg Tab RxNorm: 472418 1 Tablet(s) PO QHS No Start Date 01/04/2010 Inactive Bystolic 5 mg tablet RxNorm: 527931 1 Tablet(s) PO QD No Start Date 0 08/13/2012 Inactive Aricept 10 mg Tab RxNorm: 823669 1 Tablet(s) PO QD No Start Date 11/03 Inactive Lantus Solostar U-100 Insulin 100 unit/mL (3 mL) subcu taneous pen RxNorm: 223748 50 Unit(s) SQ QAM No Start Date 08/27/2018 Inactive albuterol sulfate 2.5 mg/3 mL (0.083 %) Neb Solution RxNorm: 118927 1 Unit Dose INH QID as needed No Start Date 08/23/2015 Inactive Symbicort 160 mcg-4.5 mcg/actuation HFA Aerosol Inhaler RxNo rm: 3392601 2 Puff(s) INH BID No Start Date 12/03/2011 Inactive Savella 50 mg Tab RxNorm: 463152 1 Tablet(s) PO BID No Start Date 04/2010 Inactive amitriptyline 100 mg Tab RxNorm: 401506 1 1/2 Tablet(s) PO QHS No S tart Date 06/19/2011 Inactive nystatin 100,000 unit/g Topical Cream RxNorm: 860167 Ap plication TOP BID to rash for 2-4 weeks No Start Date 01/14/2011 Inactive Trelegy Ellipta 100 mcg-62.5 mcg-25 mcg powder for inhalatio n RxNorm: 6345075 1 Puff(s) INH QD No Start Date 12/16/2017 Inactive Lyrica 150 mg capsule RxNorm: 899634 1 Capsule(s) PO QHS No Start D ate 12/04/2015 Inactive sennosides 8.6 mg tablet RxNorm: 220194 1 Tablet(s) PO BID No Start Date 09/07/2018 Inactive metformin ER 500 mg tablet,extended release 24 hr RxNorm: 86 0975 1 Tablet(s) PO QD No Start Date 10/22/2017 Inactive Fish Oil 1,000 mg Cap RxNorm: 1 Capsule(s) PO QD No Start Date 06/2011 Inactive Zyrtec 10 mg Tab RxNorm: 6399139 1 Tablet(s) PO QD No Start Date 07/03 Inactive albuterol sulfate HFA 90 mcg/actuation aerosol inhaler RxNor m: 7881438 2 Puff(s) INH Q4H as needed for cough No Start Date 09/30/2013 Inactive trazodone 150 mg tablet RxNorm: 747388 1 Tablet(s) PO QHS No Start Date 07/21/2012 Inactive Spiriva with HandiHaler 18 mcg & inhalation capsules RxNorm: 216602 1 Capsule(s) INH QD No Start Date 04/05/2013 Inactive Coreg 3.125 mg Tab RxNorm: 252048 1 Tablet(s) PO BID No Start Date Inactive Phenergan 25 mg Tab RxNorm: 397888 Tablet(s) PO PRN MIGRAINE No Sta rt Date 11/21/2009 Inactive Vitamin D 50,000 unit Cap RxNorm: 7814961 1 Capsule(s) PO QW No Sta rt Date 03/07/2011 Inactive Januvia 100 mg tablet RxNorm: 815378 1 Tablet(s) PO QD No Start Date 10/25/2015 Inactive Eliquis 5 mg tablet RxNorm: 7027269 1 Tablet(s) PO BID No Start Date 08/19/2018 Inactive Advair Diskus 500 mcg-50 mcg/Dose for Inhalation RxNorm: 969823 1 INH BID No Start Date 07/21/2012 Inactive Vitamin D3 5,000 unit tablet RxNorm: 446622 1 Tablet(s) PO QD No St art Date 07/18/2017 Inactive Amaryl 2 mg tablet RxNorm: 351339 1 Tablet(s) PO QD No Start Date 06/2015 Inactive Actos 30 mg tablet RxNorm: 052421 1 Tablet(s) PO QD No Start Date Inactive promethazine 25 mg tablet RxNorm: 812445 1 Tablet(s) PO Q4H prn N/V No Start Date 07/21/2012 Inactive ProAir HFA 90 mcg/actuation Aerosol Inhaler RxNorm: 457162 2 Puff(s) INH Q4H prn dyspnea No Start Date 07/21/2012 Inactive Dexilant 60 mg Capsule RxNorm: 912980 1 Capsule(s) PO QD No Start D ate 01/27/2012 Inactive Lantus Solostar U-100 Insulin 100 unit/mL (3 mL) subcu taneous pen RxNorm: 545316 38 Unit(s) SQ QAM No Start Date 05/20/2018 Inactive Valium 10 mg Tab RxNorm: 429090 1 Tablet(s) PO QHS AND PRN No Start Date 10/24/2009 Inactive ZOFRAN ODT 8 mg disintegrating tablet RxNorm: 981730 1 Tablet(s ) PO Q6H No Start [...] Date S ervice Location MICROALBUMIN URINE RANDOM 41978 MICRL MG/L 14.9 MG/L Unknown MICROALBUMIN URINE RANDOM 74122 XM.ALB/CRE 6.1 MG/GCR Unknown MICROALBUMIN URINE RANDOM 78269 CREAT MG/D 243 MG/DL Unknown MICROALBUMIN URINE RANDOM 96881 CRE/100 2.43 G/L 03/05 Unknown PROTEIN/CREAT URINE WITH RATIO 09339|75537 PROT R U 14 MG/D L 04/01/2014 Unknown PROTEIN/CREAT URINE WITH RATIO 65468|10769 CREAT R U 254 MG/ DL 04/01/2014 Unknown PROTEIN/CREAT URINE WITH RATIO 11559|09459 XRATIO P/C 55 MG/ G 04/01/2014 Unknown URINALYSIS 48307 PROTEIN UR NEG 04/28/2010 Unknown URINALYSIS 84254 HEMGLBN UR NEG 04/28/2010 Unknown URINALYSIS 12424 GLUCOSE UR NEG 04/28/2010 Unknown URINALYSIS 16688 KETONES UR NEG 04/28/2010 Unknown URINALYSIS 38575 PH U 5.5 04/28/2010 Unknown URINALYSIS 83925 SP GR U 1.025 04/28/2010 Unknown URINALYSIS 96688 BILRUBN UR NEG 04/28/2010 Unknown URINALYSIS 05652 LEUKO UR 2+ 04/28/2010 Unknown URINALYSIS 66478 NITRITE UR NEG 04/28/2010 Unknown MICR CUL? [id number] WBC/HPF 6-10 04/28/2010 Unknown MICR CUL? [id number] RBC/HPF 0-5 04/28/2010 Unknown MICR CUL? [id number] HYAL CAST 16-25 04/28/2010 Unknown MICR CUL? [id number] SP TO YOLIE? NO 04/28/2010 Unknown MICR CUL? [id number] APPEAR UR NORMAL 04/28/2010 Unknown MICR CUL? [id number] SQ EPI/LPF FEW 04/28/2010 Unknown Procedures Procedure Codes Date URINALYSIS NONAUTO W/O SCOPE CPT-4: 23635 04/16/2019 URINE CULTURE/ COLONY COUNT CPT-4: 40454 04/16/2019 CEFTRIAXONE SODIUM INJECTION CPT-4: J0696 04/16/2019 THER/PROPH/DIAG INJ SC/IM CPT-4: 90450 04/16/2019 DRAIN/INJECT JOINT/BURSA CPT-4: 88351 01/22/2019 TRIAMCINOLONE ACET INJ NOS CPT-4: J3301 01/22/2019 DEXAMETHASONE SODIUM PHOS CPT-4: J1100 01/22/2019 URINE CULTURE/ COLONY COUNT CPT-4: 66845 01/07/2019 URINALYSIS NONAUTO W/O SCOPE CPT-4: 06857 01/07/2019 CEFTRIAXONE SODIUM INJECTION CPT-4: J0696 01/07/2019 THER/PROPH/DIAG INJ SC/IM CPT-4: 58067 01/07/2019 FLU VACC PRSV FREE INC ANTIG 65 AND OLDER CPT-4: 32895 12/24/2018 FLU VACC PRSV FREE INC ANTIG 65 AND OLDER CPT-4: 64417 12/24/2018 ADMIN INFLUENZA VIRUS VAC CPT-4: G0008 12/24/2018 THER/PROPH/DIAG INJ SC/IM CPT-4: 40236 11/04/2018 KETOROLAC TROMETHAMINE INJ CPT-4: J1885 11/04/2018 PROMETHAZINE HCL INJECTION CPT-4: J2550 11/04/2018 PPPS, subseq visit CPT-4: G0439 09/18/2018 THER/PROPH/DIAG INJ SC/IM CPT-4: 10298 04/01/2018 KETOROLAC TROMETHAMINE INJ CPT-4: J1885 04/01/2018 PROMETHAZINE HCL INJECTION CPT-4: J2550 04/01/2018 URINE CULTURE/ COLONY COUNT CPT-4: 51088 03/17/2018 URINALYSIS NONAUTO W/O SCOPE CPT-4: 82775 03/17/2018 FLU VACC PRSV FREE INC ANTIG 65 AND OLDER CPT-4: 90773 12/17/2017 PNEUMOCOCCAL VACC 23 RANDALL IM CPT-4: 70000 12/17/2017 ADMIN INFLUENZA VIRUS VAC CPT-4: G0008 12/17/2017 ADMIN PNEUMOCOCCAL VACCINE CPT-4: G0009 12/17/2017 PPPS, subseq visit CPT-4: G0439 09/17/2017 THER/PROPH/DIAG INJ SC/IM CPT-4: 49579 08/26/2017 KETOROLAC TROMETHAMINE INJ CPT-4: J1885 08/26/2017 PROMETHAZINE HCL INJECTION CPT-4: J2550 08/26/2017 URINALYSIS NONAUTO W/O SCOPE CPT-4: 18737 07/19/2017 URINE CULTURE/ COLONY COUNT CPT-4: 44958 07/19/2017 CEFTRIAXONE SODIUM INJECTION CPT-4: J0696 07/19/2017 THER/PROPH/DIAG INJ SC/IM CPT-4: 24374 07/19/2017 THER/PROPH/DIAG INJ SC/IM CPT-4: 31986 07/19/2017 TRIAMCINOLONE ACET INJ NOS CPT-4: J3301 07/19/2017 PRESCRIP TRANSMIT VIA ERX SY CPT-4: G8553 05/07/2017 PRESCRIP TRANSMIT VIA ERX SY CPT-4: G8553 02/22/2017 PRESCRIP TRANSMIT VIA ERX SY CPT-4: G8553 01/23/2017 FLU VACC PRSV FREE INC ANTIG 65 AND OLDER CPT-4: 23355 12/20/2016 PNEUMOCOCCAL VACC 13 RANDALL IM CPT-4: 15945 12/20/2016 ADMIN INFLUENZA VIRUS VAC CPT-4: G0008 12/20/2016 ADMIN PNEUMOCOCCAL VACCINE CPT-4: G0009 12/20/2016 URINALYSIS NONAUTO W/O SCOPE CPT-4: 55300 10/08/2016 URINE CULTURE/ COLONY COUNT CPT-4: 87031 10/08/2016 PRESCRIP TRANSMIT VIA ERX SY CPT-4: G8553 10/08/2016 PRESCRIP TRANSMIT VIA ERX SY CPT-4: G8553 09/19/2016 PRESCRIP TRANSMIT VIA ERX SY CPT-4: G8553 08/20/2016 PRESCRIP TRANSMIT VIA ERX SY CPT-4: G8553 02/29/2016 KETOROLAC TROMETHAMINE INJ CPT-4: J1885 02/02/2016 THER/PROPH/DIAG INJ SC/IM CPT-4: 63714 02/02/2016 PROMETHAZINE HCL INJECTION CPT-4: J2550 02/02/2016 PRESCRIP TRANSMIT VIA ERX SY CPT-4: G8553 02/02/2016 FLU VACC PRSV FREE INC ANTIG 65 AND OLDER CPT-4: 44777 01/05/2016 PPPS, subseq visit CPT-4: G0439 01/05/2016 ADMIN INFLUENZA VIRUS VAC CPT-4: G0008 01/05/2016 URINE CULTURE/ COLONY COUNT CPT-4: 52746 12/05/2015 URINALYSIS NONAUTO W/O SCOPE CPT-4: 96496 12/05/2015 PRESCRIP TRANSMIT VIA ERX SY CPT-4: G8553 12/05/2015 PRESCRIP TRANSMIT VIA ERX SY CPT-4: G8553 10/26/2015 URINALYSIS NONAUTO W/O SCOPE CPT-4: 32850 10/05/2015 URINE CULTURE/ COLONY COUNT CPT-4: 74325 10/05/2015 PRESCRIP TRANSMIT VIA ERX SY CPT-4: G8553 10/05/2015 MD SERVICE REQUIRED FOR PMD CPT-4: G0372 09/15/2015 PRESCRIP TRANSMIT VIA ERX SY CPT-4: G8553 09/15/2015 SPECIAL REPORTS OR FORMS CPT-4: 44985 08/25/2015 PRESCRIP TRANSMIT VIA ERX SY CPT-4: G8553 07/05/2015 URINALYSIS NONAUTO W/O SCOPE CPT-4: 64051 03/30/2015 ASSAY, GLUCOSE, BLOOD QUANT CPT-4: 88825 03/30/2015 URINE CULTURE/ COLONY COUNT CPT-4: 95016 03/30/2015 PRESCRIP TRANSMIT VIA ERX SY CPT-4: G8553 03/30/2015 PRESCRIP TRANSMIT VIA ERX SY CPT-4: G8553 02/03/2015 FLU VACC PRSV FREE INC ANTIG 65 AND OLDER CPT-4: 38016 12/29/2014 ADMIN INFLUENZA VIRUS VAC CPT-4: G0008 12/29/2014 PRESCRIP TRANSMIT VIA ERX SY CPT-4: G8553 12/29/2014 PRESCRIP TRANSMIT VIA ERX SY CPT-4: G8553 09/02/2014 PROTEIN/CREAT URINE WITH RATIO CPT-4: 82881|[id number] 5 MICROALBUMIN QUANTITATIVE CPT-4: 09628 04/01/2014 PRESCRIP TRANSMIT VIA ERX SY CPT-4: G8553 03/16/2014 PRESCRIP TRANSMIT VIA ERX SY CPT-4: G8553 03/09/2014 THER/PROPH/DIAG INJ SC/IM CPT-4: 14788 03/01/2014 TRIAMCINOLONE ACET INJ NOS CPT-4: J3301 03/01/2014 PRESCRIP TRANSMIT VIA ERX SY CPT-4: G8553 02/09/2014 URINE CULTURE/ COLONY COUNT CPT-4: 26604 10/30/2013 URINALYSIS NONAUTO W/O SCOPE CPT-4: 96187 10/21/2013 URINE CULTURE/ COLONY COUNT CPT-4: 57333 10/21/2013 DESTRUCT PREMALG LESION (Cryosurgery) CPT-4: 73622 PRESCRIP TRANSMIT VIA ERX SY CPT-4: G8553 10/05/2013 URINALYSIS NONAUTO W/O SCOPE CPT-4: 43267 08/04/2013 URINE CULTURE/ COLONY COUNT CPT-4: 31936 08/04/2013 PRESCRIP TRANSMIT VIA ERX SY CPT-4: G8553 08/04/2013 THER/PROPH/DIAG INJ SC/IM CPT-4: 81303 07/13/2013 TRIAMCINOLONE ACET INJ NOS CPT-4: J3301 07/13/2013 PRESCRIP TRANSMIT VIA ERX SY CPT-4: G8553 05/27/2013 URINALYSIS NONAUTO W/O SCOPE CPT-4: 49993 05/25/2013 URINE CULTURE/ COLONY COUNT CPT-4: 85707 05/25/2013 THER/PROPH/DIAG INJ SC/IM CPT-4: 93636 05/04/2013 VITAMIN B12 INJECTION CPT-4: J3420 05/04/2013 THER/PROPH/DIAG INJ SC/IM CPT-4: 12865 04/17/2013 VITAMIN B12 INJECTION CPT-4: J3420 04/17/2013 THER/PROPH/DIAG INJ SC/IM CPT-4: 81147 04/17/2013 METHYLPREDNISOLONE 40 MG INJ CPT-4: J1030 04/17/2013 TRIAMCINOLONE ACET INJ NOS CPT-4: J3301 04/17/2013 URINALYSIS NONAUTO W/O SCOPE CPT-4: 60766 04/06/2013 URINE CULTURE/ COLONY COUNT CPT-4: 74390 04/06/2013 PRESCRIP TRANSMIT VIA ERX SY CPT-4: G8553 04/06/2013 KETOROLAC TROMETHAMINE INJ CPT-4: J1885 06/25/2012 PROMETHAZINE HCL INJECTION CPT-4: J2550 06/25/2012 THER/PROPH/DIAG INJ SC/IM CPT-4: 13778 06/25/2012 THER/PROPH/DIAG INJ SC/IM CPT-4: 54681 06/24/2012 METHYLPREDNISOLONE 40 MG INJ CPT-4: J1030 06/24/2012 TRIAMCINOLONE ACET INJ NOS CPT-4: J3301 06/24/2012 URINE CULTURE/ COLONY COUNT CPT-4: 87848 06/24/2012 THER/PROPH/DIAG INJ SC/IM CPT-4: 69746 05/20/2012 KETOROLAC TROMETHAMINE INJ CPT-4: J1885 05/20/2012 THER/PROPH/DIAG INJ SC/IM CPT-4: 31825 05/20/2012 PROMETHAZINE HCL INJECTION CPT-4: J2550 05/20/2012 DRAIN/INJECT JOINT/BURSA CPT-4: 83923 02/13/2012 METHYLPREDNISOLONE 40 MG INJ CPT-4: J1030 02/13/2012 TRIAMCINOLONE ACET INJ NOS CPT-4: J3301 02/13/2012 THER/PROPH/DIAG INJ SC/IM CPT-4: 21241 11/14/2011 METHYLPREDNISOLONE 40 MG INJ CPT-4: J1030 11/14/2011 TRIAMCINOLONE ACET INJ NOS CPT-4: J3301 11/14/2011 THER/PROPH/DIAG INJ SC/IM CPT-4: 28237 09/12/2011 KETOROLAC TROMETHAMINE INJ CPT-4: J1885 09/12/2011 THER/PROPH/DIAG INJ SC/IM CPT-4: 01468 08/09/2011 METHYLPREDNISOLONE 40 MG INJ CPT-4: J1030 08/09/2011 TRIAMCINOLONE ACET INJ NOS CPT-4: J3301 08/09/2011 URINE CULTURE/ COLONY COUNT CPT-4: 58465 07/03/2011 URINE CULTURE/ COLONY COUNT CPT-4: 44839 06/04/2011 THER/PROPH/DIAG INJ SC/IM CPT-4: 03074 05/03/2011 METHYLPREDNISOLONE 40 MG INJ CPT-4: J1030 05/03/2011 TRIAMCINOLONE ACET INJ NOS CPT-4: J3301 05/03/2011 URINALYSIS NONAUTO W/O SCOPE CPT-4: 37041 01/24/2011 URINE CULTURE/ COLONY COUNT CPT-4: 78961 01/24/2011 FLUZONE, 5ML (Medicare) CPT-4: Q2038 01/02/2011 ADMIN INFLUENZA VIRUS VAC CPT-4: G0008 01/02/2011 ASSAY, GLUCOSE, BLOOD QUANT CPT-4: 26796 12/07/2010 URINE CULTURE/ COLONY COUNT CPT-4: 83760 11/02/2010 THER/PROPH/DIAG INJ SC/IM CPT-4: 93305 10/18/2010 METHYLPREDNISOLONE 40 MG INJ CPT-4: J1030 10/18/2010 TRIAMCINOLONE ACET INJ NOS CPT-4: J3301 10/18/2010 TRIAMCINOLONE ACET INJ NOS CPT-4: J3301 05/11/2010 METHYLPREDNISOLONE 40 MG INJ CPT-4: J1030 05/11/2010 THER/PROPH/DIAG INJ SC/IM CPT-4: 58880 05/11/2010 TRIAMCINOLONE ACET INJ NOS CPT-4: J3301 02/09/2010 METHYLPREDNISOLONE 40 MG INJ CPT-4: J1030 02/09/2010 THER/PROPH/DIAG INJ SC/IM CPT-4: 40125 02/09/2010 SERVICE REQUIRED FOR PMD CPT-4: G0372 02/09/2010 FLU VACCINE 3 YRS & > IM UP 64 CPT-4: 22634 0 PNEUMOCOCCAL VACC 23 RANDALL IM CPT-4: 31090 12/07/2009 ADMIN INFLUENZA VIRUS VAC CPT-4: G0008 12/07/2009 ADMIN PNEUMOCOCCAL VACCINE CPT-4: G0009 12/07/2009 TRIAMCINOLONE ACET INJ NOS CPT-4: J3301 05/26/2009 THER/PROPH/DIAG INJ SC/IM CPT-4: 69884 05/26/2009 METHYLPREDNISOLONE 80 MG INJ CPT-4: J1040 [...] 1: 114/72 Code: 8480-6 BMI: 37.8 Code: 06311-3 Heart Rate 1: 72 bpm Height: 5'3" [...] 1: 106/68 Code: 8480-6 BMI: 35.7 Code: 28944-8 Heart Rate 1: 72 bpm Height: 5'4" Respiratory Rate: 20 bpm SpO2: 98% Tempera ture: 36.7 (C) / 98.0 (F) Weight: 208 lbs 04/16/2018 Blood Pressure 1: 132/82 Code: 8480-6 BMI: 37.9 Code: 61032-4 Heart Rate 1: 72 bpm Height: 5'4" Respiratory Rate: 20 bpm SpO2: 96% Tempera ture: 37.1 (C) / 98.8 (F) Weight: 221 lbs 04/01/2018 Blood Pressure 1: 150/90 Code: 8480-6 Heart Rate 1: 72 bpm Respiratory Rate: 22 bpm SpO2: 95% Temperature: 36.4 (C) / 97.6 (F) We ight: 216 lbs 03/06/2018 Blood Pressure 1: 126/78 Code: 8480-6 BMI: 37.4 Code: 00025-7 Heart Rate 1: 68 bpm Height: 5'4" [...] ight: 222 lbs 12/25/2017 BMI: 37.8 Code: 69536-6 Heart Rate 1: 76 bpm Height: 5 '4" Respiratory Rate: 20 bpm SpO2: 96% Temperature: 37.3 (C) / 99.2 (F) Weight: 220 lbs 12/17/2017 Blood Pressure 1: 132/78 Code: 8480-6 BMI: 37.2 Code: 74052-1 Heart Rate 1: 88 bpm Height: 5'4" Respiratory Rate: 20 bpm SpO2: 96% Tempera ture: 37.3 (C) / 99.2 (F) Weight: 217 lbs 10/30/2017 Blood Pressure 1: 114/68 Code: 8480-6 BMI: 36.4 Code: 96044-5 Heart Rate 1: 72 bpm Height: 5'4" Respiratory Rate: 22 bpm SpO2: 96% Tempera ture: 36.8 (C) / 98.2 (F) Weight: 212 lbs 10/23/2017 Blood Pressure 1: 124/78 Code: 8480-6 Heart Rate 1: 72 bpm Respiratory Rate: 24 bpm SpO2: 94% Temperature: 36.6 (C) / 97.9 (F) We ight: 212 lbs 09/17/2017 Blood Pressure 1: 128/82 Code: 8480-6 BMI: 37.4 Code: 26102-1 Heart Rate 1: 72 bpm Height: 5'4" Respiratory Rate: 20 bpm SpO2: 96% Tempera ture: 37.0 (C) / 98.6 (F) Weight: 218 lbs 07/19/2017 Blood Pressure 1: 136/84 Code: 8480-6 BMI: 36.6 Code: 77579-0 Heart Rate 1: 88 bpm Height: 5'4" Respiratory Rate: 20 bpm SpO2: 97% Tempera ture: 36.7 (C) / 98.0 (F) Weight: 213 lbs 05/29/2017 Blood Pressure 1: 136/82 Code: 8480-6 BMI: 36.7 Code: 37455-0 Heart Rate 1: 72 bpm Height: 5'4" Respiratory Rate: 20 bpm SpO2: 97% Tempera ture: 36.9 (C) / 98.4 (F) Weight: 214 lbs 05/07/2017 Blood Pressure 1: 122/80 Code: 8480-6 BMI: 37.1 Code: 39050-7 Heart Rate 1: 80 bpm Height: 5'4" Respiratory Rate: 24 bpm SpO2: 96% Tempera ture: 36.1 (C) / 97.0 (F) Weight: 216 lbs 03/18/2017 BMI: 36.7 Code: 97305-0 Heart Rate 1: 80 bpm Height: 5 '4" Respiratory Rate: 22 bpm SpO2: 95% Temperature: 36.9 (C) / 98.4 (F) Weight: 214 lbs 02/27/2017 Blood Pressure 1: 146/94 Code: 8480-6 BMI: 36.6 Code: 90915-1 Heart Rate 1: 76 bpm Height: 5'4" Respiratory Rate: 22 bpm SpO2: 97% Tempera ture: 36.6 (C) / 97.9 (F) Weight: 213 lbs 02/22/2017 Blood Pressure 1: 126/90 Code: 8480-6 BMI: 36.4 Code: 83458-9 Heart Rate 1: 84 bpm Height: 5'4" Respiratory Rate: 22 bpm SpO2: 95% Tempera ture: 36.9 (C) / 98.4 (F) Weight: 212 lbs 01/23/2017 Blood Pressure 1: 146/82 Code: 8480-6 BMI: 37.6 Code: 65979-4 Heart Rate 1: 96 bpm Height: 5'4" Respiratory Rate: 20 bpm SpO2: 96% Tempera ture: 36.9 (C) / 98.4 (F) Weight: 219 lbs 12/20/2016 Blood Pressure 1: 126/70 Code: 8480-6 BMI: 37.2 Code: 26347-9 Heart Rate 1: 76 bpm Height: 5'4" Respiratory Rate: 22 bpm SpO2: 95% Tempera ture: 36.6 (C) / 97.8 (F) Weight: 217 lbs 10/08/2016 Blood Pressure 1: 128/82 Code: 8480-6 BMI: 36.9 Code: 03717-1 Heart Rate 1: 76 bpm Height: 5'4" Respiratory Rate: 20 bpm SpO2: 95% Tempera ture: 37.0 (C) / 98.6 (F) Weight: 215 lbs 09/19/2016 Blood Pressure 1: 144/78 Code: 8480-6 BMI: 37.8 Code: 75711-6 Heart Rate 1: 76 bpm Height: 5'4" Respiratory Rate: 22 bpm SpO2: 95% Tempera ture: 37.0 (C) / 98.6 (F) Weight: 220 lbs 08/20/2016 Blood Pressure 1: 140/86 Code: 8480-6 BMI: 37.4 Code: 18868-6 Heart Rate 1: 80 bpm Height: 5'4" Respiratory Rate: 20 bpm SpO2: 95% Tempera ture: 36.9 (C) / 98.4 (F) Weight: 218 lbs 06/19/2016 Blood Pressure 1: 124/78 Code: 8480-6 BMI: 37.8 Code: 15076-5 Heart Rate 1: 74 bpm Height: 5'4" Respiratory Rate: 24 bpm SpO2: 96% Tempera ture: 36.9 (C) / 98.4 (F) Weight: 220 lbs 06/04/2016 Blood Pressure 1: 124 Code: 8480-6 BMI: 38.8 Code: 62024-0 Heart Rate 1: 72 bpm Height: 5'4" Respiratory Rate: 24 bpm SpO2: 95% Tempera ture: 36.8 (C) / 98.2 (F) Weight: 226 lbs 05/02/2016 Blood Pressure 1: 136/90 Code: 8480-6 BMI: 37.6 Code: 60779-4 Heart Rate 1: 72 bpm Height: 5'4" Respiratory Rate: 24 bpm SpO2: 96% Tempera ture: 36.9 (C) / 98.4 (F) Weight: 219 lbs 04/03/2016 Blood Pressure 1: 126/78 Code: 8480-6 BMI: 38.1 Code: 21891-2 Heart Rate 1: 72 bpm Height: 5'4" Respiratory Rate: 22 bpm SpO2: 94% Tempera ture: 36.9 (C) / 98.4 (F) Weight: 222 lbs 02/29/2016 Blood Pressure 1: 132/78 Code: 8480-6 Heart Rate 1: 78 bpm Height: Respiratory Rate: 24 bpm SpO2: 95% Temperature: 36.4 (C) / 97.6 (F) We ight: 02/02/2016 Blood Pressure 1: 124/78 Code: 8480-6 BMI: 37.6 Code: 31827-5 Heart Rate 1: 76 bpm Height: 5'4" Respiratory Rate: 20 bpm SpO2: 95% Tempera ture: 36.8 (C) / 98.2 (F) Weight: 219 lbs 01/05/2016 Blood Pressure 1: 126/70 Code: 8480-6 BMI: 37.1 Code: 05828-4 Heart Rate 1: 76 bpm Height: 5'4" Respiratory Rate: 20 bpm Temperature: 36 .6 (C) / 97.8 (F) Weight: 216 lbs 12/05/2015 Blood Pressure 1: 126/72 Code: 8480-6 BMI: 36.9 Code: 50537-6 Heart Rate 1: 92 bpm Height: 5'4" Respiratory Rate: 20 bpm Temperature: 36 .7 (C) / 98.1 (F) Weight: 215 lbs 10/26/2015 Blood Pressure 1: 142/80 Code: 8480-6 BMI: 36.4 Code: 64381-8 Heart Rate 1: 82 bpm Height: 5'4" Respiratory Rate: 24 bpm SpO2: 92% Tempera ture: 35.9 (C) / 96.7 (F) Weight: 212 lbs 10/05/2015 Blood Pressure 1: 136/82 Code: 8480-6 Heart Rate 1: 80 bpm Respiratory Rate: 18 bpm SpO2: 98% Temperature: 35.7 (C) / 96.3 (F) We ight: 214 lbs 09/15/2015 Blood Pressure 1: 116/80 Code: 8480-6 BMI: 34.6 Code: 89051-6 Heart Rate 1: 76 bpm Height: 5'6" Respiratory Rate: 20 bpm Temperature: 36 .6 (C) / 97.9 (F) Weight: 211 lbs 08/24/2015 Blood Pressure 1: 124/80 Code: 8480-6 BMI: 34.1 Code: 69659-5 Heart Rate 1: 68 bpm Height: 5'6" Respiratory Rate: 20 bpm Temperature: 36 .8 (C) / 98.3 (F) Weight: 208 lbs 07/05/2015 Blood Pressure 1: 114/78 Code: 8480-6 BMI: 33.9 Code: 50714-5 Heart Rate 1: 80 bpm Height: 5'6" Respiratory Rate: 20 bpm Temperature: 36 .6 (C) / 97.9 (F) Weight: 207 lbs 06/06/2015 Blood Pressure 1: 122/78 Code: 8480-6 BMI: 34.1 Code: 07455-1 Heart Rate 1: 76 bpm Height: 5'6" Respiratory Rate: 24 bpm SpO2: 96% Tempera ture: 36.4 (C) / 97.6 (F) Weight: 208 lbs 05/23/2015 Blood Pressure 1: 124/78 Code: 8480-6 Heart Rate 1: 76 bpm Respiratory Rate: 24 bpm SpO2: 93% Temperature: 36.8 (C) / 98.2 (F) We ight: 212 lbs 05/05/2015 Blood Pressure 1: 136/80 Code: 8480-6 BMI: 35.4 Code: 23719-3 Heart Rate 1: 76 bpm Height: 5'6" Respiratory Rate: 28 bpm Temperature: 37 .0 (C) / 98.6 (F) Weight: 216 lbs 03/30/2015 Blood Pressure 1: 132/86 Code: 8480-6 BMI: 35.2 Code: 16722-2 Heart Rate 1: 84 bpm Height: 5'6" Respiratory Rate: 24 bpm Temperature: 36 .7 (C) / 98.0 (F) Weight: 215 lbs 02/03/2015 Blood Pressure 1: 122/74 Code: 8480-6 BMI: 35.7 Code: 21972-8 Heart Rate 1: 84 bpm Height: 5'6" Respiratory Rate: 20 bpm Temperature: 36 .9 (C) / 98.5 (F) Weight: 218 lbs 12/29/2014 Blood Pressure 1: 132/80 Code: 8480-6 BMI: 35.1 Code: 00097-5 Heart Rate 1: 80 bpm Height: 5'6" Respiratory Rate: 20 bpm Temperature: 36 .6 (C) / 97.8 (F) Weight: 214 lbs 09/02/2014 Blood Pressure 1: 128/92 Code: 8480-6 BMI: 34.7 Code: 30761-2 Heart Rate 1: 84 bpm Height: 5'6" Respiratory Rate: 26 bpm Temperature: 36 .8 (C) / 98.2 (F) Weight: 212 lbs 08/25/2014 Blood Pressure 1: 124/80 Code: 8480-6 BMI: 34.7 Code: 30976-4 Heart Rate 1: 78 bpm Height: 5'6" Respiratory Rate: 22 bpm SpO2: 97% Tempera ture: 36.6 (C) / 97.8 (F) Weight: 212 lbs 04/01/2014 Blood Pressure 1: 142/84 Code: 8480-6 BMI: 34.4 Code: 95579-5 Heart Rate 1: 74 bpm Height: 5'5" Respiratory Rate: 20 bpm Temperature: 36 .4 (C) / 97.6 (F) Weight: 207 lbs 03/16/2014 Blood Pressure 1: 142/90 Code: 8480-6 BMI: 34.6 Code: 27704-2 Heart Rate 1: 76 bpm Height: 5'5" Respiratory Rate: 24 bpm Temperature: 36 .5 (C) / 97.7 (F) Weight: 208 lbs 03/09/2014 Blood Pressure 1: 116/70 Code: 8480-6 BMI: 35.3 Code: 39730-1 Heart Rate 1: 72 bpm Height: 5'5" [...] 1: 128/86 Code: 8480-6 BMI: 34.3 Code: 07825-9 Heart Rate 1: 84 bpm Height: 5'5" Respiratory Rate: 20 bpm Temperature: 36 .7 (C) / 98.0 (F) Weight: 206 lbs 12/23/2013 Blood Pressure 1: 122/70 Code: 8480-6 BMI: 34.3 Code: 55058-2 Heart Rate 1: 68 bpm Height: 5'5" Respiratory Rate: 20 bpm Temperature: 36 .8 (C) / 98.2 (F) Weight: 206 lbs 10/05/2013 Blood Pressure 1: 118/76 Code: 8480-6 BMI: 34.1 Code: 19985-9 Heart Rate 1: 68 bpm Height: 5'5" Respiratory Rate: 20 bpm SpO2: 98% Tempera ture: 36.6 (C) / 97.9 (F) Weight: 205 lbs 08/04/2013 Blood Pressure 1: 126/82 Code: 8480-6 BMI: 33.3 Code: 67025-3 Heart Rate 1: 76 bpm Height: 5'5" Respiratory Rate: 20 bpm Temperature: 36 .8 (C) / 98.2 (F) Weight: 200 lbs 07/03/2013 Blood Pressure 1: 124/82 Code: 8480-6 BMI: 33.3 Code: 54408-0 Heart Rate 1: 72 bpm Height: 5'5" Respiratory Rate: 22 bpm Temperature: 36 .1 (C) / 97.0 (F) Weight: 200 lbs 05/27/2013 Blood Pressure 1: 126/82 Code: 8480-6 Heart Rate 1: 74 bpm Respiratory Rate: 20 bpm Temperature: 36.0 (C) / 96.8 (F) Weight: 199 lbs 04/06/2013 Blood Pressure 1: 118/80 Code: 8480-6 BMI: 35.2 Code: 85005-2 Heart Rate 1: 80 bpm Height: 5'4" Respiratory Rate: 20 bpm Temperature: 37 .4 (C) / 99.3 (F) Weight: 205 lbs 11/10/2012 Blood Pressure 1: 128/82 Code: 8480-6 Heart Rate 1: 84 bpm Respiratory Rate: 20 bpm Temperature: 36.7 (C) / 98.0 (F) Weight: 199 lbs 09/02/2012 Blood Pressure 1: 116/82 Code: 8480-6 BMI: 34.2 Code: 32728-5 Heart Rate 1: 88 bpm Height: 5'4" Respiratory Rate: 22 bpm Temperature: 36 .6 (C) / 97.8 (F) Weight: 199 lbs 08/04/2012 Blood Pressure 1: 128/74 Code: 8480-6 BMI: 34.0 Code: 05786-3 Heart Rate 1: 92 bpm Height: 5'4" Respiratory Rate: 20 bpm Temperature: 36 .4 (C) / 97.5 (F) Weight: 198 lbs 07/21/2012 Blood Pressure 1: 124/86 Code: 8480-6 Heart Rate 1: 116 bpm Respiratory Rate: 24 bpm Temperature: 36.8 (C) / 98.2 (F) 07/02/2012 Blood Pressure 1: 116/88 Code: 8480-6 BMI: 33.6 Code: 17097-5 Heart Rate 1: 76 bpm Height: 5'4" Respiratory Rate: 20 bpm Temperature: 36 .8 (C) / 98.3 (F) Weight: 196 lbs 06/24/2012 Blood Pressure 1: 124/80 Code: 8480-6 BMI: 34.3 Code: 50803-1 Heart Rate 1: 72 bpm Height: 5'4" SpO2: 96% Temperature: 36.3 (C) / 97.3 (F) Weight: 200 lbs 05/20/2012 Blood Pressure 1: 116/88 Code: 8480-6 BMI: 33.8 Code: 74230-7 Heart Rate 1: 80 bpm Height: 5'4" Respiratory Rate: 22 bpm Temperature: 36 .9 (C) / 98.4 (F) Weight: 197 lbs 05/08/2012 Blood Pressure 1: 128/86 Code: 8480-6 BMI: 33.8 Code: 24147-3 Heart Rate 1: 76 bpm Height: 5'4" Respiratory Rate: 26 bpm SpO2: 95% Tempera ture: 36.1 (C) / 97.0 (F) Weight: 197 lbs 04/22/2012 Blood Pressure 1: 106/64 Code: 8480-6 BMI: 33.8 Code: 38051-3 Heart Rate 1: 70 bpm Height: 5'4" Temperature: 36.1 (C) / 97.0 (F) Weight: 197 lbs 02/13/2012 Blood Pressure 1: 126/82 Code: 8480-6 BMI: 34.7 Code: 85911-6 Heart Rate 1: 64 bpm Height: 5'4" Respiratory Rate: 20 bpm Temperature: 36 .6 (C) / 97.8 (F) Weight: 202 lbs 01/28/2012 Blood Pressure 1: 116/80 Code: 8480-6 BMI: 34.7 Code: 91299-6 Heart Rate 1: 76 bpm Height: 5'4" Respiratory Rate: 20 bpm Temperature: 36 .8 (C) / 98.3 (F) Weight: 202 lbs 12/26/2011 Blood Pressure 1: 132/82 Code: 8480-6 BMI: 36.0 Code: 51101-8 Heart Rate 1: 68 bpm Height: 5'4" Respiratory Rate: 22 bpm Temperature: 36 .7 (C) / 98.0 (F) Weight: 210 lbs 11/14/2011 Blood Pressure 1: 124/80 Code: 8480-6 BMI: 36.4 Code: 61057-3 Heart Rate 1: 76 bpm Height: 5'4" Respiratory Rate: 20 bpm Temperature: 36 .8 (C) / 98.2 (F) Weight: 212 lbs 09/12/2011 Blood Pressure 1: 108/74 Code: 8480-6 BMI: 37.1 Code: 82607-5 Heart Rate 1: 72 bpm Height: 5'4" Respiratory Rate: 20 bpm Temperature: 37 .0 (C) / 98.6 (F) Weight: 216 lbs 08/15/2011 Blood Pressure 1: 122/80 Code: 8480-6 BMI: 36.9 Code: 46200-6 Heart Rate 1: 76 bpm Height: 5'4" Respiratory Rate: 20 bpm Temperature: 36 .2 (C) / 97.1 (F) Weight: 215 lbs 08/09/2011 Blood Pressure 1: 112/78 Code: 8480-6 BMI: 36.9 Code: 63807-0 Heart Rate 1: 68 bpm Height: 5'4" Respiratory Rate: 20 bpm Temperature: 36 .7 (C) / 98.0 (F) Weight: 215 lbs 07/03/2011 Blood Pressure 1: 140/94 Code: 8480-6 BMI: 36.2 Code: 04968-2 Heart Rate 1: 68 bpm Height: 5'4" Temperature: 36.0 (C) / 96.8 (F) Weight: 211 lbs 06/04/2011 Blood Pressure 1: 124/70 Code: 8480-6 BMI: 36.7 Code: 01838-0 Heart Rate 1: 68 bpm Height: 5'4" Respiratory Rate: 20 bpm Temperature: 36 .6 (C) / 97.9 (F) Weight: 214 lbs 05/03/2011 Blood Pressure 1: 130/76 Code: 8480-6 BMI: 36.4 Code: 24301-7 Heart Rate 1: 74 bpm Height: 5'5" Temperature: 36.2 (C) / 97.2 (F) Weight: 219 lbs 04/05/2011 Blood Pressure 1: 124/86 Code: 8480-6 BMI: 35.9 Code: 99365-9 Heart Rate 1: 76 bpm Height: 5'6" Respiratory Rate: 22 bpm Temperature: 36 .3 (C) / 97.3 (F) Weight: 219 lbs 03/08/2011 Blood Pressure 1: 112/78 Code: 8480-6 BMI: 35.1 Code: 67802-7 Heart Rate 1: 80 bpm Height: 5'6" Respiratory Rate: 26 bpm Temperature: 36 .9 (C) / 98.4 (F) Weight: 214 lbs 01/24/2011 Blood Pressure 1: 110/82 Code: 8480-6 BMI: 35.6 Code: 56966-8 Heart Rate 1: 80 bpm Height: 5'6" Temperature: 36.1 (C) / 97.0 (F) Weight: 217 lbs 01/02/2011 Blood Pressure 1: 106/72 Code: 8480-6 BMI: 35.6 Code: 41572-3 Heart Rate 1: 76 bpm Height: 5'6" [...] 1: 120/74 Code: 8480-6 BMI: 35.9 Code: 26873-4 Heart Rate 1: 72 bpm Height: 5'5" Temperature: 36.3 (C) / 97.4 (F) Weight: 216 lbs 09/19/2010 Blood Pressure 1: 124/80 Code: 8480-6 BMI: 35.4 Code: 09956-7 Heart Rate 1: 76 bpm Height: 5'5" [...] 1: 122/78 Code: 8480-6 BMI: 37.4 Code: 09966-7 Heart Rate 1: 84 bpm Height: 5'5" [...] 12/17/2017 follow up 10/30/2017 follow up 10/23/2017 [facility] fwup from [facility] Annual Checkup 09/17/2017 [...] up 10/18/[address] Medrano last w [place] [facility] [place], having increased allergy symptoms. Would like steroid [...] 1 month f/u follow up 12/07/2009 from [facility], done with PT--finished about 2wks ago [...] R06.1] Diagnosis: COUGH[ICD10: R05] Belia REID DO [facility] CPT-4: 18073 05/06/2019 ([id number]) OFFICE/OUTPATIENT VISIT EST Diagnosis: Stridor[ICD10: R06.1] Diagnosis: Muscle, jerky movements (uncontrolled)[ICD10: G25.5] Belia REID reQall [facility] CPT-4: 58760 04/29/2019 ([id number]) OFFICE/OUTPATIENT VISIT EST Diagnosis: Upper respiratory infection[ICD10: J06.9] Diagnosis: Flank pain[ICD10: R10.9] Diagnosis: Weight gain[ICD10: R63.5] Pattie AMBRIZ reQall [facility] CPT-4: 07461 04/16/2019 ([id number]) OFFICE/OUTPATIENT VISIT EST Diagnosis: Generalized pruritus[ICD10: L29.9] Belia REID reQall [facility] CPT-4: 26818 04/08/2019 ([id number]) OFFICE/OUTPATIENT VISIT EST Diagnosis: Acute bursitis of left shoulder[ICD10: M75.52] Diagnosis: Cervicalgia[ICD10: M54.2] Diagnosis: Chest wall pain[ICD10: R07.89] Belia SMITH [employer] CPT-4: 47495 01/22/2019 ([id number]) OFFICE/OUTPATIENT VISIT EST Diagnosis: Abdominal pain[ICD10: R10.9] Diagnosis: Pyelonephritis[ICD10: N12] Pattie DOMINGUEZ [employer] CPT-4: 49669 01/07/2019 ([id number]) OFFICE/OUTPATIENT VISIT EST Diagnosis: Low back pain[ICD10: M54.5] Diagnosis: Left lumbar radiculopathy[ICD10: M54.16] Diagnosis: Left flank pain[ICD10: R10.9] Diagnosis: Left lower quadrant pain[ICD10: R10.32] Diagnosis: FLU VACCINE[ICD10: Z23] Belia FREDERICK [employer] CPT-4: 44921 12/24/2018 ([id number]) OFFICE/OUTPATIENT VISIT EST Diagnosis: Migraine, unspecified, not intractable, without status migrainosus[ICD10: G43.909] Diagnosis: Fibromyalgia[ICD10: M79.7] Belia DOMINGUEZ [facility] CPT-4: 45828 11/20/2018 ([id number]) OFFICE/OUTPATIENT VISIT EST Diagnosis: Migraine, unspecified, intractable, without status migrainosus[ICD10: G43.919] Diagnosis: Acute sinusitis, unspecified[ICD10: J01.90] Pattie REID DO [facility] CPT-4: 49262 11/04/2018 ([id number]) OFFICE/OUTPATIENT VISIT EST Diagnosis: Pain in left wrist[ICD10: M25.532] Diagnosis: Other dorsalgia[ICD10: M54.89] Pattie REID DO [facility] CPT-4: 49817 09/08/2018 ([id number]) OFFICE/OUTPATIENT VISIT EST Diagnosis: Acute stress reaction[ICD10: F43.0] Diagnosis: Pruritus, unspecified[ICD10: L29.9] 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, 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] Belia REID [facility] CPT-4: 44033 08/20/2018 ([id number]) OFFICE/OUTPATIENT VISIT EST Diagnosis: Hypotension due to drugs[ICD10: I95.2] Diagnosis: Paroxysmal atrial fibrillation[ICD10: I48.0] Diagnosis: Localized edema[ICD10: R60.0] Belia REID DO [facility] CPT-4: 94936 06/19/2018 ([id number]) OFFICE/OUTPATIENT VISIT EST Diagnosis: Generalized hyperhidrosis[ICD10: R61] Diagnosis: Essential (primary) hypertension[ICD10: I10] Diagnosis: Supraventricular tachycardia[ICD10: I47.1] Belia REID DO [facility] CPT-4: 46095 06/09/2018 ([id number]) OFFICE/OUTPATIENT VISIT EST Diagnosis: Stridor[ICD10: R06.1] Diagnosis: Dependence on supplemental oxygen[ICD10: Z99.81] Diagnosis: Weakness[ICD10: R53.1] Diagnosis: Supraventricular tachycardia[ICD10: I47.1] Belia REID DO [facility] CPT-4: 42694 05/21/2018 ([id number]) OFFICE/OUTPATIENT VISIT EST Diagnosis: Cervical disc disorder with radiculopathy, unspecified cervical region[ICD10: M50.10] Belia REID DO [facility] CPT-4: 14157 04/16/2018 ([id number]) OFFICE/OUTPATIENT VISIT EST Diagnosis: Migraine, unspecified, intractable, without status migrainosus[ICD10: G43.919] Diagnosis: Fibromyalgia[ICD10: M79.7] Pattie DOMINGUEZ [facility] CPT-4: 05660 04/01/2018 ([id number]) NURSE/OUTPATIENT VISIT EST Diagnosis: Hematuria, unspecified[ICD10: R31.9] Diagnosis: Dysuria[ICD10: R30.0] Belia REID reQall [facility] CPT-4: 26233 03/17/2018 ([id number]) OFFICE/OUTPATIENT VISIT EST Diagnosis: Erythema intertrigo[ICD10: L30.4] Diagnosis: Chronic obstructive pulmonary disease with (acute) exacerbation[ICD10: J44.1] Diagnosis: Type 2 diabetes mellitus with hyperglycemia[ICD10: E11.65] Belia REID reQall [facility] CPT-4: 08589 03/06/2018 ([id number]) OFFICE/OUTPATIENT VISIT EST Diagnosis: Cervicalgia[ICD10: M54.2] Pattie AMBRIZ reQall [facility] CPT-4: 31517 02/05/2018 ([id number]) OFFICE/OUTPATIENT VISIT EST Diagnosis: Candidiasis of skin and nail[ICD10: B37.2] Diagnosis: Cervicalgia[ICD10: M54.2] Pattie AMBRIZ reQall [facility] CPT-4: 78177 01/20/2018 ([id number]) OFFICE/OUTPATIENT VISIT EST Diagnosis: Pain in thoracic spine[ICD10: M54.6] Diagnosis: Radiculopathy, thoracic region[ICD10: M54.14] Belia REID reQall [facility] CPT-4: 59730 12/25/2017 ([id number]) OFFICE/OUTPATIENT VISIT EST Diagnosis: Pain in thoracic spine[ICD10: M54.6] Diagnosis: Other muscle spasm[ICD10: M62.838] Diagnosis: FLU VACCINE[ICD10: Z23] Diagnosis: PNEUMOCOCCAL VACCINE[ICD10: Z23] Belia REID DO [facility] CPT-4: 66942 12/17/2017 ([id number]) OFFICE/OUTPATIENT VISIT EST Diagnosis: Chronic obstructive pulmonary disease with (acute) exacerbation[ICD10: J44.1] Belia REID DO [facility] CPT- 4: 56169 10/30/2017 ([id number]) OFFICE/OUTPATIENT VISIT EST Diagnosis: Chronic obstructive pulmonary disease with acute lower respiratory infection[ICD10: J44.0] Diagnosis: Mild intermittent asthma with (acute) exacerbation[ICD10: J45.21] Belia REID DO [facility] CPT-4: 57794 10/23/2017 ([id number]) NURSE/OUTPATIENT VISIT EST Diagnosis: Migraine, unspecified, not intractable, without status migrainosus[ICD10: G43.909] Belia REID [facility] CPT - 4: 89371 08/26/2017 ([id number]) OFFICE/OUTPATIENT VISIT EST Diagnosis: Urinary tract infection, site not specified[ICD10: N39.0] Diagnosis: Encounter for screening for osteoporosis[ICD10: Z13.820] Diagnosis: Encounter for screening mammogram for malignant neoplasm of breast[ICD10: Z12.31] Diagnosis: Acute bronchitis, unspecified[ICD10: J20.9] Pattie REID DO [facility] CPT-4: 50557 07/19/2017 ([id number]) OFFICE/OUTPATIENT VISIT EST Diagnosis: Rash and other nonspecific skin eruption[ICD10: R21] Pattie REID DO [facility] CPT-4: 87402 05/29/2017 ([id number]) OFFICE/OUTPATIENT VISIT EST Diagnosis: Diarrhea, unspecified[ICD10: R19.7] Diagnosis: Tinea corporis[ICD10: B35.4] Diagnosis: Tinea cruris[ICD10: B35.6] Diagnosis: Migraine, unspecified, not intractable, without status migrainosus[ICD10: G43.909] Belia REID DO [facility] CPT - 4: 19602 05/07/2017 ([id number]) OFFICE/OUTPATIENT VISIT EST Diagnosis: Stridor[ICD10: R06.1] Diagnosis: Chronic obstructive pulmonary disease with (acute) exacerbation[ICD10: J44.1] Belia REID DO [facility] CPT- 4: 30199 03/18/2017 ([id number]) OFFICE/OUTPATIENT VISIT EST Diagnosis: Type 2 diabetes mellitus with hyperglycemia[ICD10: E11.65] Belia REID DO [facility] CPT-4: 86020 02/27/2017 OFFICE/OUTPATIENT VISIT EST Diagnosis: Type 2 diabetes mellitus with hyperglycemia[ICD10: E11.65] Pattie REID reQall [facility] CPT-4: 08700 02/22/2017 ([id number]) OFFICE/OUTPATIENT VISIT EST Diagnosis: Urinary tract infection, site not specified[ICD10: N39.0] Diagnosis: Pneumonia, unspecified organism[ICD10: J18.9] Diagnosis: Type 2 diabetes mellitus with hyperglycemia[ICD10: E11.65] Belia REID [facility] CPT-4: 56207 01/23/2017 ([id number]) OFFICE/OUTPATIENT VISIT EST Diagnosis: Type 2 diabetes mellitus with hyperglycemia[ICD10: E11.65] Diagnosis: Localized edema[ICD10: R60.0] Diagnosis: PNEUMOCOCCAL VACCINE[ICD10: Z23] Diagnosis: FLU VACCINE[ICD10: Z23] Belia [facility] CPT-4: 74011 12/20/2016 OFFICE/OUTPATIENT VISIT EST Diagnosis: Pain in thoracic spine[ICD10: M54.6] Diagnosis: Low back pain[ICD10: M54.5] Diagnosis: Cervicalgia[ICD10: M54.2] Diagnosis: Cough[ICD10: R05] Celeste Ferreira BELIA REID re[facility]all [facility] CPT-4: 23804 10/08/2016 ([id number]) OFFICE/OUTPATIENT VISIT EST Diagnosis: Primary insomnia[ICD10: F51.01] Diagnosis: Migraine, unspecified, not intractable, without status migrainosus[ICD10: G43.909] Diagnosis: Type 2 diabetes mellitus with hyperglycemia[ICD10: E11.65] Belia REID DO [facility] CPT-4: 29411 09/19/2016 ([id number]) OFFICE/OUTPATIENT VISIT EST Diagnosis: Migraine, unspecified, not intractable, without status migrainosus[ICD10: G43.909] Diagnosis: Generalized abdominal pain[ICD10: R10.84] Diagnosis: Cough[ICD10: R05] Belia REID DO [facility] CPT-4: 06196 08/20/2016 ([id number]) OFFICE/OUTPATIENT VISIT EST Diagnosis: Chronic obstructive pulmonary disease, unspecified[ICD10: J44.9] Diagnosis: Stridor[ICD10: R06.1] Belia REID DO [facility] CPT-4: 30092 06/19/2016 ([id number]) OFFICE/OUTPATIENT VISIT EST Diagnosis: Chronic obstructive pulmonary disease, unspecified[ICD10: J44.9] Diagnosis: Personal history of urinary (tract) infections[ICD10: Z87.440] Belia REID DO [facility] CPT-4: 74680 06/04/2016 ([id number]) OFFICE/OUTPATIENT VISIT EST Diagnosis: Stridor[ICD10: R06.1] Diagnosis: Chronic obstructive pulmonary disease with acute lower respiratory infection[ICD10: J44.0] Diagnosis: Other specified diseases of intestine[ICD10: K63.89] Diagnosis: Cystitis, unspecified without hematuria[ICD10: N30.90] Belia REID DO [facility] CPT-4: 33047 05/02/2016 ([id number]) OFFICE/OUTPATIENT VISIT EST Diagnosis: Fibromyalgia[ICD10: M79.7] Diagnosis: Urinary tract infection, site not specified[ICD10: N39.0] Belia REID DO [facility] CPT-4: 77731 04/03/2016 ([id number]) OFFICE/OUTPATIENT VISIT EST Diagnosis: Unspecified asthma, uncomplicated[ICD10: J45.909] Diagnosis: Cough[ICD10: R05] Lidia CORNELLLINE Yuridia REID reQall [facility] T-4: 25216 02/29/2016 ([id number]) OFFICE/OUTPATIENT VISIT EST Diagnosis: Migraine, unspecified, intractable, without status migrainosus[ICD10: G43.919] Diagnosis: Urinary tract infection, site not specified[ICD10: N39.0] Belia TomlinsonMayda ANUSHKA reQall [facility] CPT-4: 39509 02/02/2016 ([id number]) OFFICE/OUTPATIENT VISIT EST Diagnosis: Urinary tract infection, site not specified[ICD10: N39.0] Diagnosis: Unspecified abdominal pain[ICD10: R10.9] Diagnosis: Pain in thoracic spine[ICD10: M54.6] Diagnosis: Type 2 diabetes mellitus with diabetic neuropathic arthropathy[ICD10: E11.610] Belia HSUQUELINE BushraMayda ANUSHKA reQall [facility] CPT-4: 88049 12/05/2015 ([id number]) OFFICE/OUTPATIENT VISIT EST Diagnosis: Chronic obstructive pulmonary disease with (acute) exacerbation[ICD10: J44.1] Diagnosis: Migraine, unspecified, not intractable, without status migrainosus[ICD10: G43.909] Lidia HSUQUELINE BushraMayda ANUSHKA reQall [facility] CPT -4: 18120 10/26/2015 ([id number]) OFFICE/OUTPATIENT VISIT EST Diagnosis: Hematuria, unspecified[ICD10: R31.9] Diagnosis: Urinary tract infection, site not specified[ICD10: N39.0] Lidia HSUQUELINE BushraMayda ANUSHKA reQall [facility] CPT-4: 84807 10/05/2015 OFFICE/OUTPATIENT VISIT EST Diagnosis: Chronic obstructive pulmonary disease, unspecified[ICD10: J44.9] Diagnosis: Muscle weakness (generalized)[ICD10: M62.81] Diagnosis: Polyneuropathy, unspecified[ICD10: G62.9] Diagnosis: Other intervertebral disc degeneration, 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] Diagnosis: Fibromyalgia[ICD10: M79.7] Beliaclayton HSUQUELINE Yuridia DAILEYER reQall [facility] CPT-4: 24457 09/15/2015 ([id number]) OFFICE/OUTPATIENT VISIT EST Diagnosis: Disorientation, unspecified[ICD10: R41.0] Diagnosis: Headache[ICD10: R51] Diagnosis: Paresthesia of skin[ICD10: R20.2] Lidia REID DO [facility] CPT-4: 18069 08/24/2015 ([id number]) OFFICE/OUTPATIENT VISIT EST Diagnosis: Type 2 diabetes mellitus with hyperglycemia[ICD10: E11.65] Diagnosis: Chronic obstructive pulmonary disease with acute lower respiratory infection[ICD10: J44.0] Belia REID DO [facility] CPT-4: 06967 07/05/2015 ([id number]) OFFICE/OUTPATIENT VISIT EST Diagnosis: Mild intermittent asthma with (acute) exacerbation[ICD10: J45.21] Diagnosis: Chronic obstructive pulmonary disease, unspecified[ICD10: J44.9] Belia REID [facility] CPT-4: 48272 06/06/2015 ([id number]) OFFICE/OUTPATIENT VISIT EST Diagnosis: Chronic obstructive pulmonary disease with (acute) exacerbation[ICD10: J44.1] Lidia REID [facility] CPT- 4: 98463 05/23/2015 ([id number]) OFFICE/OUTPATIENT VISIT EST Diagnosis: Type 2 diabetes mellitus with hyperglycemia[ICD10: E11.65] Diagnosis: Functional dyspepsia[ICD10: K30] Belia REID DO [facility] CPT-4: 42663 05/05/2015 ([id number]) OFFICE/OUTPATIENT VISIT EST Diagnosis: Type 2 diabetes mellitus with hyperglycemia[ICD10: E11.65] Diagnosis: Glycosuria[ICD10: R81] Diagnosis: Urinary tract infection, site not specified[ICD10: N39.0] Belia REID DO [facility] CPT-4: 26017 03/30/2015 ([id number]) OFFICE/OUTPATIENT VISIT EST Diagnosis: Generalized abdominal pain[ICD10: R10.84] Diagnosis: Diarrhea, unspecified[ICD10: R19.7] Diagnosis: Urinary tract infection, site not specified[ICD10: N39.0] Diagnosis: Gastro-esophageal reflux disease without esophagitis[ICD10: K21.9] Belia REID [facility] CPT-4: 97955 02/03/2015 ([id number]) OFFICE/OUTPATIENT VISIT EST Diagnosis: Other specified noninflammatory disorders of vagina[ICD10: N89.8] Diagnosis: Follicular disorder, unspecified[ICD10: L73.9] Diagnosis: Functional dyspepsia[ICD10: K30] Diagnosis: FLU VACCINE[ICD10: Z23] Belia SMITH [facility] CPT-4: 92759 12/29/2014 ([id number]) OFFICE/OUTPATIENT VISIT EST 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] Diagnosis: RESTLESS LEGS SYNDROME[ICD9: 333.94] Diagnosis: MIGRAINE NOS/NOT INTRCBL[ICD9: 346.90] [facility]: 39491 09/02/2014 ([id number]) OFFICE/OUTPATIENT VISIT EST Diagnosis: Cervical radiculopathy[ICD9: 723.4] Diagnosis: Cervicalgia[ICD9: 723.1] Diagnosis: Degenerative disc disease, cervical[ICD9: 722.4] 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I[ICD9: 250.00] [facility] CPT-[facility]: 76290 04/01/2014 OFFICE/OUTPATIENT VISIT EST Diagnosis: Reactive airway disease[ICD9: 493.90] Belia HSUPAUL LUBNA BushraMayda [facility] CPT-4: 13432 03/16/2014 ([id number]) OFFICE/OUTPATIENT VISIT EST Diagnosis: BRONCHITIS, ACUTE[ICD9: 466.0] Diagnosis: Reactive airway disease[ICD9: 493.90] Belia Reid MINAL LUBNA BushraMayda [facility] CPT-4: 95949 03/09/2014 OFFICE/OUTPATIENT VISIT EST Diagnosis: BRONCHITIS, ACUTE[ICD9: 466.0] Diagnosis: WHEEZING[ICD9: 786.07] Huong Osborne BELIA BushraMayda RALF Peguero [facility] CPT-4: 46809 03/03/2014 OFFICE/OUTPATIENT VISIT EST Diagnosis: BRONCHITIS, ACUTE[ICD9: 466.0] Diagnosis: WHEEZING[ICD9: 786.07] Huong Peguero [facility] CPT-4: 16654 03/01/2014 ([id number]) OFFICE/OUTPATIENT VISIT EST Diagnosis: GERD[ICD9: 530.81] Diagnosis: ARTHRALGIA-MULTIPLE SITES[ICD9: 719.49] Diagnosis: LUMB/LUMBOSAC DISC DEGEN[ICD9: 722.52] Diagnosis: - I - FIBROMYALGIA[ICD9: 729.1] Belia Humphriesbeckyannie CORNELLBELIA BushraMayda ANUSHKA [facility] CPT-4: 86628 02/09/2014 ([id number]) OFFICE/OUTPATIENT VISIT EST Diagnosis: Peptic ulcer disease[ICD9: 533.90] Diagnosis: RESTLESS LEGS SYNDROME[ICD9: 333.94] Diagnosis: Neuropathy[ICD9: 355.9] Belia Humphriesbeckyannie CORNELLBELIA BushraMayda LUIS [facility] CPT-4: 22554 12/23/2013 ([id number]) OFFICE/OUTPATIENT VISIT EST Diagnosis: URINARY TRACT INFECTION[ICD9: 599.0] Belia Humphriesbeckyannie CORNELL CLAYTON BushraMayda ANUSHKA [facility] CPT-4: 73367 10/30/2013 ([id number]) OFFICE/OUTPATIENT VISIT EST Diagnosis: Flank pain[ICD9: 789.00] Belia Humphriesbeckyannie CORNELLBELIA BushraMayda KIESHA [facility] CPT-4: 88405 10/21/2013 ([id number]) OFFICE/OUTPATIENT VISIT EST Diagnosis: INFLAMED SEBORR KERATOS[ICD9: 702.11] Diagnosis: Brachioradial pruritus[ICD9: 698.9] Diagnosis: ASTHMA NOS[ICD9: 493.90] Belia Humphriesbeckyannie CORNELLBELIA BushraMayda KIESHA POOLE [facility] CPT-4: 53316 10/05/2013 ([id number]) OFFICE/OUTPATIENT VISIT EST Diagnosis: HYPERTENSION[ICD9: 401.9] Diagnosis: - I - FIBROMYALGIA[ICD9: 729.1] Diagnosis: DIZZINESS/VERTIGO[ICD9: 780.4] Diagnosis: MIGRAINE NOS/NOT INTRCBL[ICD9: 346.90] Diagnosis: Diabetic peripheral neuropathy[ICD9: 250.60] Diagnosis: Flank pain[ICD9: 789.00] Belia BRUNSON Yuridia POOLE [facility] CPT-4: 38491 08/04/2013 ([id number]) OFFICE/OUTPATIENT VISIT EST Diagnosis: ALLERGIC RHINITIS[ICD9: 477.9] Belia CORNELLLINE Bushra REID [facility] CPT-4: 00749 07/13/2013 OFFICE/OUTPATIENT VISIT EST Diagnosis: URINARY TRACT INFECTION[ICD9: 599.0] Huong De LunaFidepool REID [facility] CPT-4: 69215 07/03/2013 OFFICE/OUTPATIENT VISIT EST Diagnosis: HYPERTENSION[ICD9: 401.9] Diagnosis: URINARY TRACT INFECTION[ICD9: 599.0] Diagnosis: BACKACHE[ICD9: 724.5] Diagnosis: URINARY INCONTINENCE[ICD9: 788.30] Huong De LunaFidepool BASS MARIE [facility]uridia [facility] CPT-[facility]: 77849 05/27/2013 ([id number]) OFFICE/OUTPATIENT VISIT EST Diagnosis: Flank pain[ICD9: 789.00] Belia Zacharybeckyannie CORNELLBELIA BushraMayda KIESHA [facility] CPT-4: 80922 05/25/2013 ([id number]) OFFICE/OUTPATIENT VISIT EST Diagnosis: B-COMPLEX DEFIC NEC[ICD9: 266.2] Belia Anushka CORNELLLINE BushraMayda [facility] CPT-4: 85382 05/04/2013 ([id number]) OFFICE/OUTPATIENT VISIT EST Diagnosis: ALLERGIC RHINITIS[ICD9: 477.9] Diagnosis: Vitamin B12 deficiency[ICD9: 266.2] Belia THOMPSON Yuridia [facility] CPT-4: 51353 04/17/2013 ([id number]) OFFICE/OUTPATIENT VISIT EST 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I[ICD9: 250.00] Diagnosis: URINARY TRACT INFECTION[ICD9: 599.0] Diagnosis: DIZZINESS/VERTIGO[ICD9: 780.4] Diagnosis: DIARRHEA[ICD9: 787.91] Belia BRUNSON BushraMayda ZACHARYBECKYReggie [facility] CPT-4: 24793 04/06/2013 ([id number]) OFFICE/OUTPATIENT VISIT EST Diagnosis: URINARY TRACT INFECTION[ICD9: 599.0] Diagnosis: URINARY RETENTION[ICD9: 788.20] Belia REID [facility] CPT-4: 31058 11/10/2012 ([id number]) OFFICE/OUTPATIENT VISIT EST Diagnosis: TACHYCARDIA[ICD9: 785.0] Diagnosis: SYNCOPE AND COLLAPSE[ICD9: 780.2] Diagnosis: CONSCIOUSNS ALTERAT NEC[ICD9: 780.09] [facility]ia [facility] CPT-4: 62836 09/02/2012 OFFICE/OUTPATIENT VISIT EST Diagnosis: TACHYCARDIA[ICD9: 785.0] Diagnosis: SYNCOPE AND COLLAPSE[ICD9: 780.2] Belia REID [facility] CPT-4: 09389 08/04/2012 ([id number]) OFFICE/OUTPATIENT VISIT EST Diagnosis: Loss of consciousness[ICD9: 780.09] Diagnosis: Tachycardia[ICD9: 785.0] Diagnosis: MALAISE AND FATIGUE[ICD9: 780.79] Belia [facility] CPT-4: 23463 07/21/2012 ([id number]) OFFICE/OUTPATIENT VISIT EST Diagnosis: BRONCHITIS, ACUTE[ICD9: 466.0] Diagnosis: ASTHMA NOS[ICD9: 493.90] Belia POOLE [facility] CPT-4: 47355 07/02/2012 ([id number]) OFFICE/OUTPATIENT VISIT EST Diagnosis: CEPHALGIA[ICD9: 784.0] Belia Peguero [facility] CPT-4: 50802 06/25/2012 ([id number]) OFFICE/OUTPATIENT VISIT EST Diagnosis: GERD[ICD9: 530.81] Diagnosis: DIARRHEA[ICD9: 787.91] Diagnosis: URINARY TRACT INFECTION[ICD9: 599.0] Diagnosis: ASTHMA NOS[ICD9: 493.90] Diagnosis: ALLERGIC RHINITIS[ICD9: 477.9] Belia REID [facility] CPT-4: 05407 06/24/2012 ([id number]) OFFICE/OUTPATIENT VISIT EST Diagnosis: MIGRAINE NOS/NOT INTRCBL[ICD9: 346.90] Diagnosis: TREMOR NEC[ICD9: 333.1] Diagnosis: CHRONIC PAIN SYNDROME[ICD9: 338.4] Belia Orebeckyannie KRAIGKIMI MARIE BushraMayda ANUSHKA reQall [facility] CPT-4: 07630 05/20/2012 ([id number]) OFFICE/OUTPATIENT VISIT EST Diagnosis: DIZZINESS/VERTIGO[ICD9: 780.4] Diagnosis: PALPITATIONS[ICD9: 785.1] Diagnosis: TREMOR NEC[ICD9: 333.1] Diagnosis: ANXIETY STATE NOS[ICD9: 300.00] Diagnosis: POSTTRAUMATIC STRESS DISORDER[ICD9: 309.81] Belia Humphriesnilson BRUNSON BushraMayda ANUSHKA reQall [facility] CPT-4: 66874 05/08/2012 ([id number]) OFFICE/OUTPATIENT VISIT EST Diagnosis: MIGRAINE NOS/NOT INTRCBL[ICD9: 346.90] Diagnosis: FIBROMYALGIA[ICD9: 729.1] Diagnosis: SYNCOPE AND COLLAPSE[ICD9: 780.2] Diagnosis: Diabetic peripheral neuropathy[ICD9: 250.60] Belia Smithannie BELIA BushraMayda ANUSHKA reQall [facility] CPT-4: 36674 04/22/2012 OFFICE/OUTPATIENT VISIT EST Diagnosis: ROTATOR CUFF DIS NEC[ICD9: 726.19] Diagnosis: JOINT PAIN-SHLDER[ICD9: 719.41] Diagnosis: DYSPEPSIA[ICD9: 536.8] Belia Zacharynilson BELIA BushraMayda RALF Peguero [employer] CPT-4: 38339 02/13/2012 ([id number]) OFFICE/OUTPATIENT VISIT EST Diagnosis: MIGRAINE NOS/NOT INTRCBL[ICD9: 346.90] Diagnosis: GERD[ICD9: 530.81] Diagnosis: DYSPEPSIA[ICD9: 536.8] Belia Zacharynilson BRUNSON BushraMayda RALF Peguero reQall [facility] CPT-4: 01881 01/28/2012 OFFICE/OUTPATIENT VISIT EST Diagnosis: CEPHALGIA[ICD9: 784.0] Diagnosis: MIGRAINE NOS/NOT INTRCBL[ICD9: 346.90] Diagnosis: GERD[ICD9: 530.81] Diagnosis: INSOMNIA NOS[ICD9: 780.52] Belia BRUNSON BushraMayda RAND DAILEYER reQall [facility] CPT-4: 79018 12/26/2011 ([id number]) OFFICE/OUTPATIENT VISIT EST Diagnosis: CEPHALGIA[ICD9: 784.0] Diagnosis: MIGRAINE NOS/NOT INTRCBL[ICD9: 346.90] Diagnosis: MALAISE AND FATIGUE[ICD9: 780.79] Diagnosis: FIBROMYALGIA[ICD9: 729.1] Diagnosis: ALLERGIC RHINITIS[ICD9: 477.9] Belia REID [facility] CPT-4: 37194 11/14/2011 ([id number]) OFFICE/OUTPATIENT VISIT EST Diagnosis: MALAISE AND FATIGUE[ICD9: 780.79] Diagnosis: MUSCLE WEAKNESS-GENERAL[ICD9: 728.87] Diagnosis: MIGRAINE NOS/NOT INTRCBL[ICD9: 346.90] Diagnosis: JOINT PAIN-SHLDER[ICD9: 719.41] Belia REID [facility] CPT-4: 76840 09/12/2011 ([id number]) OFFICE/OUTPATIENT VISIT EST Diagnosis: CONCUSSION[ICD9: 850.9] Diagnosis: Ataxia[ICD9: 781.3] Diagnosis: DIZZINESS/VERTIGO[ICD9: 780.4] Belia REID [facility] CPT-4: 04496 08/15/2011 ([id number]) OFFICE/OUTPATIENT VISIT EST Diagnosis: THROMBOPHLEBITIS[ICD9: 451.9] Diagnosis: Subacromial bursitis[ICD9: 726.19] Diagnosis: ALLERGIC RHINITIS[ICD9: 477.9] Diagnosis: Lipoma[ICD9: 214.9] Belia REID [facility] CPT-4: 21791 08/09/2011 ([id number]) OFFICE/OUTPATIENT VISIT EST Diagnosis: THROMBOPHLEBITIS[ICD9: 451.9] Diagnosis: Arm pain[ICD9: 729.5] Diagnosis: Clostridium difficile colitis[ICD9: 008.45] Diagnosis: URINARY TRACT INFECTION[ICD9: 599.0] Belia REID [facility] CPT-4: 39308 07/03/2011 ([id number]) OFFICE/OUTPATIENT VISIT EST Diagnosis: ARTHRALGIA-MULTIPLE SITES[ICD9: 719.49] Diagnosis: Muscle cramp[ICD9: 729.82] Diagnosis: INSOMNIA NOS[ICD9: 780.52] Belia CORNELLLINE [facility]: 31575 06/04/2011 OFFICE/OUTPATIENT VISIT EST Diagnosis: Headache[ICD9: 784.0] Diagnosis: Allergic rhinitis[ICD9: 477.9] [facility] 00508 05/03/2011 OFFICE/OUTPATIENT VISIT EST Diagnosis: LUMB/LUMBOSAC DISC DEGEN[ICD9: 722.52] Diagnosis: MIGRAINE NOS/NOT INTRCBL[ICD9: 346.90] Diagnosis: CHRONIC PAIN SYNDROME[ICD9: 338.4] Diagnosis: RESTLESS LEGS SYNDROME[ICD9: 333.94] Belia Zacharybeckyannie HSUROBERTO ARNOLD [facility]: 57898 04/05/2011 OFFICE/OUTPATIENT VISIT EST Diagnosis: MIGRAINE NOS/NOT INTRCBL[ICD9: 346.90] Diagnosis: GERD[ICD9: 530.81] [facility]: 49615 03/08/2011 OFFICE/OUTPATIENT VISIT EST Diagnosis: URINARY TRACT INFECTION[ICD9: 599.0] Diagnosis: Vertigo[ICD9: 780.4] Diagnosis: GERD[ICD9: 530.81] [facility]: 49046 01/24/2011 OFFICE/OUTPATIENT VISIT EST Diagnosis: Hypotension[ICD9: 458.9] Diagnosis: Syncopal episodes[ICD9: 780.2] Diagnosis: MIGRAINE NOS/NOT INTRCBL[ICD9: 346.90] Diagnosis: MALAISE AND FATIGUE[ICD9: 780.79] Belia Zacharynilson Paredes [facility]uridia [facility]PT-[facility]: 19287 01/02/2011 OFFICE/OUTPATIENT VISIT EST Diagnosis: Tinea cruris[ICD9: 110.3] Diagnosis: Intertrigo[ICD9: 695.89] Diagnosis: MIGRAINE NOS/NOT INTRCBL[ICD9: 346.90] Belia COKER [facility]uridia [facility]: 19587 12/07/2010 OFFICE/OUTPATIENT VISIT EST Diagnosis: PALPITATIONS[ICD9: 785.1] Diagnosis: ANXIETY STATE NOS[ICD9: 300.00] Belia Zacharybeckyannie BRUNSON [facility] CPT-4: 16957 11/16/2010 OFFICE/OUTPATIENT VISIT EST Diagnosis: URINARY TRACT INFECTION[ICD9: 599.0] Diagnosis: MIGRAINE NOS/NOT INTRCBL[ICD9: 346.90] Iraida Robert SONJA UEL[facility] CPT-4: 11982 11/02/2010 OFFICE/OUTPATIENT VISIT EST Diagnosis: ALLERGIC RHINITIS[ICD9: 477.9] Diagnosis: ANXIETY STATE NOS[ICD9: 300.00] Belia Zacharynilson BELIA [facility] CPT-4: 54103 10/18/2010 OFFICE/OUTPATIENT VISIT EST Belia Anushka [facility]SON [facility] CPT- 4: 63282 09/19/2010 OFFICE/OUTPATIENT VISIT EST Belia Zacharybeckyannie BRUNSON [facility] CPT- 4: 25014 09/06/2010 ([id number]) OFFICE/OUTPATIENT VISIT EST Belia Anushka CASILLAS U[facility] CPT-4: 89762 08/10/2010 ([id number]) OFFICE/OUTPATIENT VISIT EST Belia Anushka CASILLAS [facility] CPT-4: 92457 05/11/2010 ([id number]) OFFICE/OUTPATIENT VISIT, EST Belia HSU ROBERTOLINE [facility] CPT-4: 85074 04/06/2010 ([id number]) OFFICE/OUTPATIENT VISIT, EST Belia HSU QUELINE [facility] CPT-4: 64420 02/09/2010 ([id number]) OFFICE/OUTPATIENT VISIT, EST Belia HSU ROBERTOLINE [facility] CPT-4: 63436 01/05/2010 ([id number]) OFFICE/OUTPATIENT VISIT, EST Belia HSU ROBERTOLINE [facility] CPT-4: 74400 12/07/2009 ([id number]) OFFICE/OUTPATIENT VISIT, EST Beliaclayton [facility] CPT-4: 54573 11/08/2009 ([id number]) OFFICE/OUTPATIENT VISIT, EST Belia REID DO [employer] CPT-4: 81779 10/24/2009 ([id number]) OFFICE/OUTPATIENT VISIT, EST Belia REID DO [employer] CPT-4: 51332 07/25/2009 ([id number]) OFFICE/OUTPATIENT VISIT, EST Belia REID DO [employer] CPT-4: 26460 05/26/2009 Plan of Care Planned Activity Notes Codes Status Date Visit Diagnosis Plan: Stridor Discussion: Add Trelagy 1 p daily Add Singulair May need to see new tobacco stripper ICD-9 : 786.1 ICD-10 : R06.1 05/06/2019 Visit Diagnosis Plan: COUGH Discussion: Check CT scan of chest ICD-9 : 786.2 ICD-10 : R05 05/06/2019 Patient Education: Singulair- [employer] Coupon [id number] https://www.Nuenz/Fugoo/resources/getResource/61/9370348u-[email or web address]-jy Completed 05/06/2019 Care Plan: CT THORAX W/O DYE LOINC : 473 66-0 Pending 05/06/2019 Appointment: Belia Reid WPtel: [address] [place], [place] [id number] [place] RESCHEDULED 04/30/2019 Visit Diagnosis Plan: Muscle, [...] R06.1 04/29/2019 Appointment: Belia Reid WPtel: [facility] Hospital Follow Up 04/29/2019 Patient Education: Valium- [employer] Coupon [id number] https://www.Nuenz/sampleEarth Class Mail/resources/getResource/61/[email or web address]-4a92-6o Completed 04/29/2019 Visit Diagnosis Plan: Weight gain [...] ICD-10 : R10.9 04/16/2019 Appointment: Pattie Sotomayor [address] [place], [place] [id number] ACUTE ILLNESS 04/16/2019 Patient Education: cyclobenzaprine- [employer] Coupon [id number] https://www.Nuenz/Fugoo/resources/getResource/61/[email or web address]-y8 Completed 04/16/2019 Visit Diagnosis Plan: Generalized pruritus Discussion: Hydroxyzine 25mg po TID for itching and anxiety ICD-9 : 698.9 ICD-10 : L29.9 04/08/2019 Visit Diagnosis Plan: Migraine, unspecif ied, not intractable, without status migrainosus Discussion: Increase gabapentin to 600mg po BID ICD-9 : 346.90 ICD-10 : G43.909 04/08/2019 Appointment: Belia Reid WPtel: [phone] [facility] ACUTE ILLNESS 04/08/2019 Visit Diagnosis Plan: Cervicalgia [...] : M75.52 01/22/2019 Appointment: Belia Reid WPtel: [address] [place] [address] Hospital Follow Up 01/22/2019 Visit Diagnosis Plan: Abdominal pain Discussion: urine culture sent to assess for any infection. rocephin given in office to cover for pyelonephritis. instructed to push fluids. call office with any new or worsening symptoms. ICD-9 : 789.00 ICD-10 : R10.9 01/07/2019 Appointment: Pattie Sotomayor [address] ACUTE ILLNESS 01/07/2019 Visit Diagnosis Plan: Low back pain Discussion: Stat C T of abdomen/pelvis now ICD-9 : 724.2 ICD-10 : M54.5 12/24/2018 Appointment: Belia Reid WPtel: [address] [place] [address] FOLLOW UP 12/24/2018 Visit Diagnosis Plan: Fibromyalgia [...] : G43.909 11/20/2018 Appointment: Belia Reid WPtel: [address] [place] [address] ACUTE ILLNESS 11/20/2018 Patient Education: baclofen- [employer] Coupon [id number] https://www.Fugoo.[employer]/samplemd/resources/getResource/61/8h5205f1-si1h-78ac-19 Completed 11/20/2018 Visit Diagnosis Plan: Migraine, unspecif ied, intractable, without status migrainosus Discussion: toradol/phenergan given in o ffice (60 mg toradol, 12.5 mg phenergan). instructed to call if no improvement or worsening. instructed to follow up with care trainer since headaches are occurring more frequently to make sure vision is not the cause. ICD-9 : 346.91 ICD-10 : G43.919 11/04/2018 Visit Diagnosis Plan: Acute sinusitis, unspecified Dis cussion: zithromax prescribed to cover for sinus infection due to length of symptoms and clinincal s/s. ICD-9 : 461.9 ICD-10 : J01.90 11/04/2018 Appointment: Pattie Sotomayor [address] [place] [address] ACUTE ILLNESS 11/04/2018 Appointment: Belia Reid WPtel: [phone] [address] US CANCELED 09/24/2018 Visit Diagnosis Plan: Type 2 diabetes me llitus with diabetic neuropathy, unspecified Discussion: Retry gabapentin 300mg po q HS ICD-9 : 250.60 ICD-10 : E11.40 09/18/2018 Visit Diagnosis Plan: Encounter for [facility] adult medical examination without abnormal findings Discussion: [...] E55.9 09/18/2018 Appointment: Belia Reid WPtel: [phone] Annual Well Visit 09/18/2018 Patient Education: gabapentin- [employer] Coupon [id number] https://www.Fugoo.com/samplemd/resources/getResource/61/[email or web address]-l4 Completed 09/18/2018 Visit Diagnosis Plan: Pain in [...] ICD-10 : M54.89 09/08/2018 Appointment: Pattie Sotomayor [address] [place] [address] ACUTE ILLNESS 09/08/2018 Patient Education: prednisone- [employer] Coupon [id number] https://www.Nuenz/samplemd/resources/getResource/61/8d0qo57g-[email or web address]-yx Completed 09/08/2018 Visit Diagnosis Plan: Acute stress [...] L29.9 08/20/2018 Appointment: Belia Reid WPtel: [phone] [id number] ACUTE ILLNESS 08/20/2018 Patient Education: Lexapro- [employer] Coupon [id number] Completed 08/20/2018 Patient Education: hydroxyzine HCl- [employer] Coupon [id number] Completed 08/20/2018 Care Plan: MAMMOGRAM SCREENING LOINC : 2 6347-5 Pending 08/20/2018 Visit Diagnosis Plan: Paroxysmal atrial fibrillation D iscussion: Discuss eliquis need with cardiology at [facility] due to cost ICD-9 : 427.31 ICD-10 : I48.0 06/19/2018 Visit Diagnosis Plan: Hypotension due to drugs Discuss ion: Discussed decreasing cardizem dose due to low BP and edema but sees cardiology next week Follow Up: 1 months ICD-9 : 458.8 ICD-10 : I95.2 06/19/2018 Appointment: Belia Reidtel: [address] [place], [place] [phone] US FOLLOW UP 06/19/2018 Visit Diagnosis Plan: [...] : R61 06/09/2018 Appointment: Belia Reid WPtel: [address] [place], [place] [id number] US FOLLOW UP 06/09/2018 Care Plan: CHEST X-RAY 2VW FRONTAL&LATL LOINC : 76731-8 Pending 05/26/2018 Visit Diagnosis Plan: Stridor Discussion: [...] : I47.1 05/21/2018 Appointment: Belia Reid WPtel: [address] [place], [place] [phone] Hospital Follow Up 05/21/2018 Visit Diagnosis Plan: Cervical disc diso rder with radiculopathy, unspecified cervical region Discussion: Scheduled for surgery on 06/02 10/[address] Faulkner ICD-9 : 722.0 ICD-10 : M50.10 04/16/2018 Appointment: Belia Reid WPtel: [address] [place] [address] Follow Up 04/16/2018 Visit Diagnosis Plan: Migraine, [...] ICD-10 : M79.7 04/01/2018 Appointment: Pattie Sotomayor [address] [place] [address] ACUTE ILLNESS 04/01/2018 Appointment: Belia Reid WPtel: [address] [place], [place] [phone] UA 03/17/2018 Visit Diagnosis Plan: Erythema intertrigo [...] : J44.1 03/06/2018 Appointment: Belia Reid WPtel: [address] [place], [place] [id number] Hospital Follow Up 03/06/2018 Visit Diagnosis Plan: Cervicalgia Discussion: spoke wi dr. reid about patient. increased gabapentin to bid and started on celebrex bid. tramadrol rx written out to take prn. keep scheduled appt next week for myelogram. ICD-9 : 723.1 ICD-10 : M54.2 02/05/2018 Appointment: Pattie Sotomayor [address] [place] [address] ACUTE ILLNESS 02/05/2018 Care Plan: X-RAY EXAM NECK SPINE 4/5VWS cervical LOINC : 70726-3 Pending 01/21/2018 Visit Diagnosis Plan: Candidiasis of [...] ICD-10 : M54.2 01/20/2018 Appointment: Pattie Sotomayor [address] [place] [address] ACUTE ILLNESS 01/20/2018 Visit Diagnosis Plan: Pain in thoracic spine Discussio n: Proceed with CT scan of thoracic spine Will likely need PT ICD-9 : 724.1 ICD-10 : M54.6 12/25/2017 Appointment: Belia Reid WPtel: [phone] [id number] FOLLOW UP 12/25/2017 Care Plan: CT THORAX W/O DYE LOINC : 473 66-0 Pending 12/25/2017 Visit Diagnosis Plan: Pain in thoracic spine Discussio n: Stretches Alternated heat/ice Topical aspercreme with lidocaine Flexeril Recheck 1 week Flu and Pneumovax given ICD-9 : 724.1 ICD-10 : M54.6 12/17/2017 Appointment: Belia Reid WPtel: [address] [place], [place] [phone] ACUTE ILLNESS 12/17/2017 Patient Education: Patient [...] : J44.1 10/30/2017 Appointment: Belia Reid WPtel: [address] [place] [address] FOLLOW UP 10/30/2017 Patient Education: Patient Medication Summary Completed 10/30/2017 Visit Diagnosis Plan: Chronic obstructiv e pulmonary disease with acute lower respiratory infection Discussion: Continue SVNs with albuterol q4hrs Add Trelagy 1 inhalation daily Finish steroids Increase water intake Follow Up: 1 weeks ICD-9 : 496 ICD-10 : J44.0 10/23/2017 Appointment: Belia Reid WPtel: [address] [place] [address] WORK IN 10/23/2017 Patient Education: Patient Medication Summary Completed 10/23/2017 Appointment: Belia Reid WPtel: [address] [place], [place] [phone] NO SHOW 10/16/2017 Visit Diagnosis Plan: Confusional [...] : E11.65 09/17/2017 Appointment: Belia Reid WPtel: [address] [place], [place] [address] Annual Well Visit 09/17/2017 Patient Education: Patient Medication Summary Completed 09/17/2017 Appointment: Belia Reid WPtel: [address] [place], [place] [phone] [place] INJECTION 08/26/2017 Patient Education: Patient Medication Summary Completed 08/26/2017 Appointment: Belia Reid WPtel: [address] [facility] [place] CANCELED 07/31/2017 Visit Diagnosis Plan: Encounter [...] ICD-10 : J20.9 07/19/2017 Appointment: Pattie Sotomayor [address] [place] [address] ACUTE ILLNESS 07/19/2017 Patient Education: Patient Medication Summary Completed 07/19/2017 Care Plan: MAMMOGRAM SCREENING LOINC : 2 6347-5 Pending 07/19/2017 Patient Education: Patient Medication Summary Completed 06/05/2017 Care Plan: LIPID PANEL LOINC : 04420-8 Pending 06/05/2017 Care Plan: A1C HPLC LOINC : 80890-4 Pending 06/05/2017 Visit Diagnosis Plan: Rash and [...] ICD-10 : R21 05/29/2017 Appointment: Pattie Sotomayor [address] [place] [address] FOLLOW UP 05/29/2017 Patient Education: Patient Medication Summary Completed 05/29/2017 Visit Diagnosis Plan: Diarrhea, unspecified Discussion : Diflucan Cholestyramine Recheck 2weeks ICD-9 : 787.91 ICD-10 : R19.7 05/07/2017 Visit Diagnosis Plan: Tinea corporis Discussion: Diflu can and topical nystatin Follow Up: 2 weeks ICD-9 : 110.5 ICD-10 : B35.4 05/07/2017 Appointment: Belia Reid WPtel: [address] [place] [address] [place] FOLLOW UP 05/07/2017 Patient Education: Patient Medication Summary Completed 05/07/2017 Appointment: Belia Reid WPtel: [address] [place] [address] [place] RESCHEDULED 04/30/2017 Visit Diagnosis Plan: Stridor Discussion: Increase Ati van 0.5mg po to TID routinely for next week then can go back to prn ICD-9 : 786.1 ICD-10 : R06.1 03/18/2017 Visit Diagnosis Plan: Chronic obstructiv e pulmonary disease with (acute) exacerbation Discussion: Finish prednisone Continue S VNS with albuterol ICD-9 : 491.21 ICD-10 : J44.1 03/18/2017 Appointment: Belia Reid WPtel: [address] [place] [address] ER Follow UP 03/18/2017 Patient Education: Patient [...] E11.65 02/27/2017 Appointment: Belia Reid WPtel: [address] [facility] [place] FOLLOW UP 02/27/2017 Patient Education: Patient [...] ICD-10 : E11.65 02/22/2017 Appointment: Pattie Sotomayor [address] [place] [address] ACUTE ILLNESS 02/22/2017 Patient Education: Patient Medication [...] J18.9 01/23/2017 Appointment: Belia Reid WPtel: [address] [facility] ER Follow UP 01/23/2017 Patient Education: Patient Medication Summary Completed 01/23/2017 [facility] [facility] 01/17/2017 Appointment: Pattie Sotomayor 504 [facility] Annual Well Visit 01/14/2017 Visit Diagnosis Plan: Localized edema Discussion: Low Na diet Compression socks/Elevate feet ICD-9 : 782.3 ICD-10 : R60.0 12/20/2016 Visit Diagnosis Plan: Type 2 diabetes mellitus with hy perglycemia Discussion: Check CMP, HbA1C Flu shot and Prevnar 13 given Follow Up: 3 months ICD-9 : 250.02 ICD-10 : E11.65 12/20/2016 Appointment: Belia Reid WPtel: [address] [place], [place] [phone] FOLLOW UP 12/20/2016 Patient Education: Patient Medication Summary Completed 12/20/2016 Patient Education: Patient Medication Summary Completed 10/10/2016 Visit Plan: Xrays of cervical, thoracic and lumbar spine at ER[facility] for Mobic (stop NSAIDS except Tylenol) and Flexeril UA sent for C&S Using SVN Call in 2-3 days if pain not improved or any worsening 10/08/2016 Appointment: Celeste Ferreira WPtel: [address] [place], [place] [phone] ACUTE ILLNESS 10/08/2016 Patient Education: Patient [...] : G43.909 09/19/2016 Appointment: Belia Reid WPtel: [facility] 09/18 confirmed`sl FOLLOW UP 09/19/2016 Patient Education: [...] : G43.909 08/20/2016 Appointment: Belia Reid WPtel: [address] [place], [place] [phone] 08/16 confirmed~sl FOLLOW UP 08/20/2016 Patient Education: [...] : R06.1 06/19/2016 Appointment: Belia Reid WPtel: [address] [place], [place] [address] 06/18 confirmed ~ Hospital Follow Up 06/19/2016 Patient Education: Patient Medication Summary Completed 06/19/2016 Visit Diagnosis Plan: Personal history of urinary (tra ct) infections Discussion: Sees urology June 22 at Restart prophylactic Macrobid at QOD ICD-9 : V13.02 ICD-10 : Z87.440 06/04/2016 Visit Diagnosis Plan: Chronic obstructive pulmonary di sease, unspecified Discussion: Continue current inhalers ICD-9 : 496 ICD-10 : J44.9 06/04/2016 Appointment: Belia Reid WPtel: [address] [place], [place] [phone] 06/01 confirmed~ FOLLOW UP 06/04/2016 Patient Education: [...] : N30.90 05/02/2016 Appointment: Belia Reid WPtel[facility] 05/01 confirmed ~ Hospital Follow Up 05/02/2016 [...] : M79.7 04/03/2016 Appointment: Belia Reid WPtel: [address] [place] [address] [facility] Follow Up 04/03/2016 Patient Education: Patient Medication Summary Completed 04/03/2016 Visit Plan: Lungs are clear Her symptoms and exam are all upper airway restriction/constriction Can try supportive care Rx as above Follow up PRN 02/29/2016 Appointment: Lidia Hwang [address] [place], [place] [address] [place] ACUTE ILLNESS 02/29/2016 Patient Education: Patient Medication Summary Completed 02/29/2016 Visit Plan: Toradol/Phenergan today for Migraine Change to Clindamycin to cover lactobacillus for UTI Cover with flagyl due to hx of C. Diff 02/02/2016 Appointment: Belia Reid WPtel: [address] [place] [address] 01/31 confirmed`sl ACUTE ILLNESS 02/02/2016 Patient Education: Patient Medication Summary Completed 02/02/2016 Visit Plan: Increase neurontin to 300mg q AM and 600mg q PM Discussed neurology re-evaluation Flu shot given Need to check on Pneumonia shot Rx written out for albuterol 01/05/2016 Appointment: Belia Reid WPtel: [address] [place] [address] 01/03 confirmed ~sl Annual Well Visit 01/05/2016 Patient Education: Patient Medication Summary Completed 01/05/2016 Visit Plan: Cipro Culture urine hydrate Flexeril refilled Alternate heat and ice for back Increase gabapentin to 300mg po BID Notify if worsens 12/05/2015 Appointment: Belia Reid WPtel: [address] [place] [address] 11/30 confirmed~sl ACUTE ILLNESS 12/05/2015 Patient Education: Patient Medication Summary Completed 12/05/2015 Patient Education: Patient Medication Summary Completed 10/27/2015 Care Plan: [place]PREH[place] : [address]-5 Pending 10/27/2015 Care Plan: A1C HPLC LOINC : 07624-4 Pending 10/27/2015 Visit Plan: Lungs are CTA today and is f eeling improved overall Finish meds as ordered Continue inhalers and neb treatments Discussed migraine treatment options She does not feel she needs anything additional added today Refill of Januvia sent since no samples are available today 10/26/2015 Appointment: Lidia Hwang [address] [facility] Hospital Follow Up 10/26/2015 Appointment: Lidia Hwang [address] [place], [place] [address] CANCELED 10/26/2015 Patient Education: Patient Medication Summary Completed 10/26/2015 Patient Education: Natalia Lacey+ - KENNETH - No [place] Completed 10/26/2015 Visit Plan: Office dip still abnormal Cu lture pending Switch to cipro - stop macrobid Push fluids - avoid caffeine Will call with culture results when available Follow up if worsening 10/05/2015 Appointment: Lidia Hwang [address] ER Follow UP 10/05/2015 Patient Education: Patient Medication Summary Completed 10/05/2015 Visit Plan: Proceed with PT for document ation of ROM and strength of all extremities Proceed with Power Mobility Device Trial of neurontin 300mg q HS--lyrica helped but patient unable to afford Recheck 1month 09/15/2015 Appointment: Belia Reid WPtel: [address] [place], [place] [phone] 09/13 confirmed~sl SPECIAL 09/15/2015 Patient Education: Patient Medication Summary Completed 09/15/2015 Visit Plan: Fille out Loan Discharge Pap erwork for total and permanent disability 08/25/2015 Patient Education: Patient Medication Summary Completed 08/25/2015 Visit Plan: Discussed with Dr Anushka Haywood at [facility] of head Will get last date of carotid 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 and update if needed 08/24/2015 Appointment: Lidia Hwang N[address] [place], [place] [phone] 08/22 confirmed~sl ACUTE ILLNESS 08/24/2015 Patient Education: Patient Medication Summary Completed 08/24/2015 Patient Education: Patient Medication Summary Completed 08/24/2015 Care Plan: US EXAM OF HEAD AND NECK carotid Ultrasound LOIN C : 95100-7 Pending 08/24/2015 Visit Plan: Long discussion about diet A ccuchecks daily Check HbA1C, CMP Change requip to mirapex 07/05/2015 Appointment: Belia Reidtel: [address] [place], [place] [phone] 07/03 confirmed ~sl FOLLOW UP 07/05/2015 Patient Education: Patient Medication Summary Completed 07/05/2015 Visit Plan: Add Breo ellipta 100 1 p BID Continue SVNs with duoneb QID 06/06/2015 Appointment: Belia Reid: [address] [place], [place] [phone] Patient is calling for a ride, then retu rning our call.-sp 06/01 called and patient stated she will know saturday if she can get a ride~sl 06/05 [facility] Follow Up 06/06/2015 Patient Education: Patient [...] not improving 05/23/2015 Appointment: Huong Osborne WPtel: [address] [place], [place] [phone] ACUTE ILLNESS 05/23/2015 Appointment: Lidia Hwang [address] [place], [place] [phone] ER Follow UP 05/23/2015 Patient Education: Patient Medication Summary Completed 05/23/2015 Visit Plan: Check pancreatic enzymes and US of pancreas as patient can't understand why she has diabetes since has no family history Discussed weight, diet, exercise all play an important role in diabetes and are risk factors as well Continue Januvia and accuchecks daily 05/05/2015 Appointment: Belia Reid WPtel: [address] [place], [place] [phone] [place] FOLLOW UP 05/05/2015 Patient Education: Patient Medication Summary Completed 05/05/2015 Care Plan: US EXAM ABDOM COMPLETE LOINC : 87830-2 Ordered 05/05/2015 Visit Plan: Start Januvia 100mg daily [place] with diflucan and culture urine Accuchecks daily alternating times Recheck 6weeks 03/30/2015 Appointment: Belia Reid WPtel: [address] [place], [place] [address] 03/29 confirmed~lb FOLLOW UP 03/30/2015 Patient Education: Patient Medication Summary Completed 03/30/2015 Appointment: Belia Reidteabigail: [address] [place] [address] 03/01 needs reschedule due to payment and insurance ~sl FOLLOW UP 03/02/2015 Visit Plan: Patient was just in ER last night so has not filled scripts yet Start Carafate and Flagyl and Cipro Add Hyophen 1 po BID Recheck 1mo 02/03/2015 Appointment: Belia Reid WPtel: [address] [place] [address] 02/02lm ~sl...02/03/15 appt confirmed cn ACUTE I LLNESS 02/03/2015 Patient Education: Patient Medication Summary Completed 02/03/2015 Visit Plan: Warm soaks to vaginal area K elex and Diflucan and observe Zofran to use prn 12/29/2014 Appointment: Belia Reid WPtel: [address] [place] [address] 12/28 Confirmed ~sl ACUTE ILLNESS 12/29/2014 Patient Education: Patient Medication Summary Completed 12/29/2014 Appointment: Huong Osborne WPtel: [address] [place] [address] FOLLOW UP 09/24/2014 Appointment: Belia Reid WPtel: [address] [place] [address] 09/15 confirmed -mf FOLLOW UP 09/16/2014 Visit Plan: Increase requip to 2mg po BI D Increase lyrica to 225mg total a day by adding an extra 75mg in AM Recheck in 2weeks Continue to patch left eye while sleeping 09/02/2014 Appointment: Belai Reid WPtel: [address] [place] [address] 09/01 appt confirmed cn Hospital Follow Up 09/02 Patient Education: Patient Medication Summary Completed 09/02/2014 Visit Plan: To [facility] for observat ion to R/O CVA 08/25/2014 Appointment: Huong Osborne: [address] [place], [place] [address] ACUTE ILLNESS 08/25/2014 Patient Education: Patient Medication Summary Completed 08/25/2014 Referral: Aaron Jonas WPtel: [facility] [address], [facility] 1 [id number] [place] In [place] location Initiated 04/26/2014 Referral: Brian Srinivasan WPtel: [address] [facility] [facility] [id number] Referral Initiated 04/20/2014 Appointment: Belia Reid WPtel: [address] [place], [place] [phone] ER Follow UP 04/01/2014 Patient Education: Patient Medication Summary Completed 04/01/2014 Care Plan: MYELOGRAPHY NECK SPINE LOINC : 63323-0 Ordered 04/01/2014 Visit Plan: Continue Symbicort 160 at 2p BID Continue SVNs with duoneb at least QID Finish Levaquin Recheck 1mo on lyrica 03/16/2014 Appointment: Belia Reid WPtel: [address] [place], [place] [address] 03/15 voicemail FOLLOW UP 03/16/2014 Patient Education: Patient Medication Summary Completed 03/16/2014 Visit Plan: Restart SVNs with duoneb QID Repeat prednisone Levaquin Continue symbicort Keep lyrica at same dose Recheck 1week 03/09/2014 Appointment: Belia Reid WPtel: [address] [place], [place] [phone] FOLLOW UP 03/09/2014 Patient Education: Patient Medication Summary Completed 03/09/2014 Appointment: Belia Reid WPtel: [address] [place], [place] [phone] 03/03 showed up 15 minutes late for appt -- put her on Huong's side for 10:45am FORGIVEN PER DR FOLLOW UP 03/03/2014 Appointment: Huong Osborne WPtel: [address] [place], [place] [phone] FOLLOW UP 03/03/2014 Patient Education: Patient Medication Summary Completed 03/03/2014 Appointment: Huong Osborne WPtel: [address] [place], [place] [phone] ER Follow UP 03/01/2014 Patient Education: Patient Medication Summary Completed 03/01/2014 Visit Plan: Add carafate for this next m onth Increase lyrica to 150mg q HS 02/09/2014 Appointment: Belia Reid WPtel: [address] [place], [place] [phone] [place] [address] Follow Up 02/09/2014 Patient Education: Patient Medication Summary Completed 02/09/2014 Visit Plan: Increase omeprazole back to 40mg po BID Use requip in AM and add lyrica 75mg q HS Recheck 1mo 12/23/2013 Appointment: Belia Reid WPtel: [address] [place], [place] [phone] FOLLOW UP 12/23/2013 Patient Education: Patient Medication Summary Completed 12/23/2013 Patient Education: Patient Medication Summary Completed 12/04/2013 Appointment: Belia Reid WPtel: [address] [place], [place] [phone] [facility] 10/30/2013 Patient Education: Patient Medication Summary Completed 10/30/2013 Appointment: Belia Reid WPtel: [address] [place], [place] [phone] [facility] 10/21/2013 Patient Education: Patient Medication Summary Completed 10/21/2013 Visit Plan: Cryotherapy as above TAC and hydroxyzine to use prn to itching spots and itching SKs Add Advair HFA 115/21 1 p BID 10/05/2013 Appointment: Belia Reid WPtel: [address] [place], [place] [phone] 10/01 pt called and confirmed ACUTE ILLNESS Patient Education: Patient Medication Summary Completed 10/05/2013 Appointment: Belia Reid WPtel: [address] [place], [place] [phone] [place] will pay copay and part of past balance FOLLOW U P 08/04/2013 Patient Education: Patient Medication Summary Completed 08/04/2013 Appointment: Belia Reid WPtel: [address] [place], [place] [phone] [place] INJECTION 07/13/2013 Patient Education: Patient Medication Summary Completed 07/13/2013 Appointment: Huong Osborne WPtel: [address] [place], [place] [address] ACUTE ILLNESS 07/03/2013 Patient Education: Patient Medication Summary Completed 07/03/2013 Visit Plan: Cipro and culture urine 05/27/2013 Appointment: Huong Osborne WPtel: [address] [place], [place] [phone] 05/26 confirmed appt and notified that balance and endoscopy rn y is due at appt time FOLLOW UP 05/27/2013 Patient Education: Patient Medication Summary Completed 05/27/2013 Appointment: Belia Reid WPtel: [address] [place], [place] [phone] [place] UA 05/25/2013 Patient Education: Patient Medication Summary Completed 05/25/2013 Appointment: Belia Reid WPtel: [address] [place], [place] [phone] [place] INJECTION 05/04/2013 Patient Education: Patient Medication Summary Completed 05/04/2013 Appointment: Belia Reid WPtel: [address] [place], [place] [phone] [place] INJECTION 04/17/2013 Patient Education: Patient Medication Summary Completed 04/17/2013 Appointment: Belia Reid WPtel: [address] [place], [place] [phone] [place] INJECTION 04/15/2013 Appointment: Belia Reidl: [address] [place], [place] [phone] 04/02 FOLLOW UP 04/06/2013 Patient Education: Patient Medication Summary Completed 04/06/2013 Visit Plan: Obtain lab results including UA from [facility] 11/10/2012 Appointment: Belia Reid WPtel: [address] [place], [place] [phone] ER Follow UP 11/10/2012 Patient Education: Patient Medication Summary Completed 11/10/2012 Appointment: Belia Reid WPtel: [address] [place], [place] [phone] 10/30/12 patient canceled appt due to fin ances. Offered to work something out, patient declined-LB FOLLOW UP 11/05/2012 Visit Plan: Continue Bystolic at current dose Pt has fwup with Neurology on September 16 09/02/2012 Appointment: Belia Reid WPtel: [address] [place], [place] [phone] FOLLOW UP 09/02/2012 Patient Education: Patient Medication Summary Completed 09/02/2012 Visit Plan: Continue bystolic at 5mg chris ly Sees Neurology tomorrow Use oxygen at bedtime 08/04/2012 Appointment: Belia Reid WPtel: [address] [place] [id number] FOLLOW UP 08/04/2012 Patient Education: Patient Medication Summary Completed 08/04/2012 Appointment: Belia Reid WPtel: [address] [place], [place] [phone] has Hospital fwup for 07/21/12. merged appointments FOLLOW UP 07/24/2012 Visit Plan: Start Bystolic 5mg daily for tachycardia Fwup with neurology for further workup Overnight O2 sat 07/21/2012 Appointment: Belia Reid WPtel: [address] [place], [place] [phone] Hospital Follow Up 07/21/2012 Patient Education: Patient Medication Summary Completed 07/21/2012 Visit Plan: SVN with Albuterol QID Add A velox 400mg daily Notify if worsens or persists 07/02/2012 Appointment: Belia Reidtel: [address] [place], [place] [phone] ACUTE ILLNESS 07/02/2012 Patient Education: Patient Medication Summary Completed 07/02/2012 Appointment: Belia Reid WPtel: [address] [place], [place] [phone] INJECTION 06/25/2012 Patient Education: Patient Medication Summary Completed 06/25/2012 Appointment: Belia Reid WPtel: [address] [place] [address] FOLLOW UP 06/24/2012 Patient Education: Patient Medication Summary Completed 06/24/2012 Appointment: Belia Reid WPtel: [address] [place], [place] [phone] 05/19 [facility] FOLLOW UP 05/20/2012 Patient Education: Patient [...] po TID 05/08/2012 Appointment: Belia Reid WPtel: [address] [place], [place] [phone] ACUTE ILLNESS 05/08/2012 Patient Education: Patient Medication Summary Completed 05/08/2012 Visit Plan: Continue current meds Contin ue lower dose on pain meds and Diazepam Still waiting on paperwork for botox for Migraines Will restart Neurontin at 600mg po q HS Pt going to stop Depakote due to can't afford 04/22/2012 Appointment: Belia Reid WPtel: [address] [place], [place] [phone] 02/18 Hospital Follow Up 04/22/2012 Patient Education: Patient Medication Summary Completed 04/22/2012 Visit Plan: Injection to shoulder as abo ve Continue current meds Has appointment with neurology on HAs in 02/13/2012 Appointment: Belia Reid WPtel: [address] [place], [place] [phone] [facility] - will bring it in next week. Kianna iqbal'ed this. - [place] FOLLOW UP 02/13/2012 Patient Education: Patient Medication Summary Completed 02/13/2012 Visit Plan: Proceed with headache specia list Change nexium to Protonix Phenergan to use prn Sumatriptan to use prn Pt still on Inderal 01/28/2012 Appointment: Belia Reid WPtel: [address] [place], [place] [address] ER Follow UP 01/28/2012 Patient Education: [...] for sleep 12/26/2011 Appointment: Belia Reid WPtel: [address] [place], [place] [phone] 12/24- appt. confirmed FOLLOW UP 2 Patient Education: Patient Medication Summary Completed 12/26/2011 Appointment: Belia Reid WPtel: [address] [place], [place] [phone] [place] FOLLOW UP 11/14/2011 Patient Education: Patient Medication Summary Completed 11/14/2011 Appointment: Belia Reid WPtel: [address] [place], [place] [phone] [place] FOLLOW UP 09/12/2011 Patient Education: Patient Medication Summary Completed 09/12/2011 Visit Plan: Supportive care Decrease Liseth catalino to 50mg q HS Decrease AM dose of Valium to 5mg q HS Use Endocet sparingly 08/15/2011 Appointment: Belia Reid WPtel: [address] [place], [place] [phone] ER Follow UP 08/15/2011 Patient Education: Patient Medication Summary Completed 08/15/2011 Appointment: Belia Reid WPtel: [address] [place] [address] Spoke directly to patient yesterday and confirmed the appoin tment. ACUTE ILLNESS 08/09/2011 Patient Education: Patient Medication Summary Completed 08/09/2011 Appointment: Belia Reid WPtel: [address] [place] [address] Hospital Follow Up 07/03/2011 Patient Education: Patient Medication Summary Completed 07/03/2011 Appointment: Belia Reid WPtel: [address] [place], [place] [address] FOLLOW UP 06/04/2011 Patient Education: Patient Medication Summary Completed 06/04/2011 Visit Plan: Pt. wants "allergy shot" but in fact wants steroid shot. Will take a break from "generic Zyrtec they are getting from [facility]" and try Singulair for 2 weeks. 05/03/2011 Appointment: Iraida Jones WPtel: [address] [place], [place] [phone] ACUTE ILLNESS 05/03/2011 Patient Education: Patient Medication Summary Completed 05/03/2011 Visit Plan: Neurontin 400mg q HS for 1we ek then 800mg q HS Decrease requip to 1mg q HS for 2wks then stop Fwup 2mos 04/05/2011 Appointment: Belia Reid WPtel: [address] [place], [place] [phone] [place] FOLLOW UP 04/05/2011 Patient Education: Patient Medication Summary Completed 04/05/2011 Visit Plan: Trial of neurontin in 2wks Iván kay current meds for stomach Pt has procedure with Dr. Ortiz next week for stone removal 03/08/2011 Appointment: Belia Reid WPtel: [address] [place] [address] Follow Up 03/08/2011 Patient Education: Patient Medication Summary Completed 03/08/2011 Appointment: Belia Reid WPtel: [address] [place] [address] FOLLOW UP 02/19/2011 Visit Plan: reports increased [...] with Flagyl 01/24/2011 Appointment: Iraida Jones WPtel: [address] [place] [address] ACUTE ILLNESS 01/24/2011 Patient Education: Patient Medication Summary Completed 01/24/2011 Appointment: Belia Reid WPtel: [address] [place] [address] FOLLOW UP 01/02/2011 Patient Education: Patient Medication Summary Completed 01/02/2011 Appointment: Belia Reid WPtel: [address] [place] [address] FOLLOW UP 12/12/2010 Appointment: Belia Reid WPtel: [address] [place] [address] ACUTE ILLNESS 12/07/2010 Patient Education: Patient Medication Summary Completed 12/07/2010 Visit Plan: Increase Buspar to 10mg po B ID 11/16/2010 Appointment: Belia Reid WPtel: [address] [place] [address] FOLLOW UP 11/16/2010 Patient Education: Patient Medication Summary Completed 11/16/2010 Appointment: Iraida Jones WPtel: [address] [place] [address] ER Follow UP 11/02/2010 Patient Education: Patient Medication Summary Completed 11/02/2010 Visit Plan: Depo-Medrol/Kenalog given fo r allergies Add BuSpar for anxiety Oxycodone 10 one p.o. q.i.d. for number 120 refilled 10/18/2010 Appointment: Belia Reid WPtel: [address] [place] [address] FOLLOW UP 10/18/2010 Patient Education: Patient Medication Summary Completed 10/18/2010 Visit Plan: Continue current meds Discus sed epidurals for back vs PT--will proceed with epidurals to thoracolumbar region to see if helps with pain 09/19/2010 Appointment: Belia Reid WPtel: [address] [place] [address] FOLLOW UP 09/19/2010 Patient Education: Patient Medication Summary Completed 09/19/2010 Visit Plan: DC MS contin Check CT scan t horacic spine Fwup pending above results 09/06/2010 Appointment: Belia Reid WPtel: [address] [place] [address] FOLLOW UP 09/06/2010 Patient Education: Patient Medication Summary Completed 09/06/2010 Visit Plan: Continue current meds Restar t MS contin 15mg po BID and use oxycodone prn Use daily senokot-s 2 po BID 08/10/2010 Appointment: Belia Reid WPtel: [address] [place] [address] [place] FOLLOW UP 08/10/2010 Patient Education: Patient Medication Summary Completed 08/10/2010 Visit Plan: Depomedrol/Kenalog given Pt sees ENT later this month Cont current meds Mammo scheduled 05/11/2010 Appointment: Belia Reid WPtel: [address] [place] [address] FOLLOW UP 05/11/2010 Patient Education: Patient Medication Summary Completed 05/11/2010 Appointment: Belia Reidtel: [address] [place] [address] 05/04/2010 Patient Education: Patient Medication Summary Completed 05/04/2010 Visit Plan: Pt sent to lab for UA 04/28/2010 Appointment: Belia Reid WPtel: [address] [place] [address] 04/28/2010 Patient Education: Patient Medication Summary Completed 04/28/2010 Visit Plan: Check CT angiogram of chest Restart Advair Use proair prn Cont current meds Fwup with Card as schedulec 04/06/2010 Appointment: Belia Reidtel: [address] [place] [address] Hospital Follow Up 04/06/2010 Patient Education: Patient Medication Summary Completed 04/06/2010 Visit Plan: Paperwork filled out for pow erchair Depomedrol/kenalog given Pt sees ENT in 2wks to assess nasal obstruction problems 02/09/2010 Appointment: Belia Reidtel: [address] [place] [address] ESTABLISHED PATIENT 02/09/2010 Patient Education: Patient Medication Summary Completed 02/09/2010 Visit Plan: Change Elavil to Trazadone 1 50mg q HS Diflucan and nystatin for tinea cruris 01/05/2010 Appointment: Belia Reidtel: [address] [place] [address] FOLLOW UP 01/05/2010 Patient Education: Patient Medication Summary Completed 01/05/2010 Appointment: Belia Reidtel: [address] [place], [place] [id number] FOLLOW UP 12/07/2009 Patient Education: Patient Medication Summary Completed 12/07/2009 Appointment: Belia Reid WPtel: [address] [place], [place] [id number] FOLLOW UP 11/22/2009 Visit Plan: Cont current meds and await MRI results from Dr. Meadows's office and his final recommendations Will need to follow-up at later date on deviated septum 11/08/2009 Appointment: Belia Reid WPtel: [address] [place] [address] FOLLOW UP 11/08/2009 Patient Education: Patient Medication Summary Completed 11/08/2009 Visit Plan: Cont PT/OT See Neurosurgery Cont Tortoise shell brace 10/24/2009 Appointment: Belia Reid WPtel: [address] [place] [address] FOLLOW UP 10/24/2009 Patient Education: Patient Medication Summary Completed 10/24/2009 Appointment: Belia Reid WPtel: [address] [place] [address] Follow Up 10/17/2009 Appointment: Belia Reid WPtel: [address] [place] [address] ACUTE ILLNESS 07/25/2009 Patient Education: Patient Medication Summary Completed 07/25/2009 Appointment: Belia Reid WPtel: [address] [place] [address] FOLLOW UP 05/26/2009 Patient Education: Patient Medication Summary Completed 05/26/2009 Referral: Chino Balderas WPtel: [phone] [id number] Referral Initiated Referral: Merry Vale WPtel: [facility] [id number] Vale will review referral and book appointment Completed Referral: Francisco Javier Yoder WPtel: [address] [id number] [place] Patient needs EGD insurance will not inc rease a medication unless this procedure results show a need Completed Referral: Francisco Javier Yoder WPtel: [phone] [id number] [place] Referral Historical Reference Referral: Francisco Javier Yoder WPtel: [phone] [id number] [place] Referral Initiated Instructions Comment . 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 Long [...]
--- OUTSIDE RECORDS SUMMARY | 2019-06-23 18:10 | XMS REPORT | CCD ---
Author Author Diana Reid D.O. 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 Role Phone Belia Reid D.O., PP Unavailable CCM Unavailable Summary Purpose Interface Exchange Insurance Providers Payer name Policy type / Coverage type Covered constitution party ID Effective Begin Date Effective End Date [employer] MEDICARE Medicare Part B [id number] 2019 Unknown Family History Family History data not found Social History Social History Element Codes Description Effective Dates Tobacco history SNOMED CT: 695956169 Nonsmoker 09/13/2010 Allergies, Adverse Reactions, Alerts Substance Reaction Codes Entered Date Inactivated Date Status Eggs reaction [id number] 09/15/2015 No Inactive Date Active _ Unknown [...] Fill Instructions Singulair 10 mg tablet RxNorm: 202715 1 Tablet(s) Oral QPM 05/06/19 20 06/05/2019 Active gabapentin 600 mg tablet RxNorm: 173413 1 Tablet(s) Oral QD 020 06/05/2019 Active Valium 5 mg tablet RxNorm: 574489 1 Tablet(s) Oral QPM for stri joao/muscle spasm 04/29/2019 05/29/2019 Active baclofen 10 mg tablet RxNorm: 905877 1 Tablet(s) Oral QPM for s pasm/neck pain 04/24/2019 05/23/2019 Active baclofen 10 mg tablet RxNorm: 601010 1 Tablet(s) Oral QPM for s pasm/neck pain 04/24/2019 04/23/2019 Inactive Novolin N NPH U-100 Insulin isophane 100 unit/mL subcu taneous susp RxNorm: 962245 23 Unit(s) Subcutaneous two times a day 04/20/2019 No Stop Date A ctive cyclobenzaprine 5 mg tablet RxNorm: 642938 1 Tablet(s) Oral three times a day as needed 04/16/2019 04/23/2019 Inactive hydroxyzine HCl 25 mg tablet RxNorm: 529016 1 Tablet(s) Oral three times a day for itching/aniety 04/08/2019 06/07/2019 Active gabapentin 600 mg tablet RxNorm: 737044 1 Tablet(s) Oral two ti mes a day 04/08/2019 05/05/2019 Inactive gabapentin 600 mg tablet RxNorm: 034332 1 Tablet(s) Oral two ti mes a day 04/08/2019 04/07/2019 Inactive Novolin N NPH U-100 Insulin isophane 100 unit/mL subcu taneous susp RxNorm: 785466 10 Unit(s) Subcutaneous two times a day 03/03/2019 04/19/2019 I nactive gabapentin 300 mg capsule RxNorm: 838028 1 Capsule(s) O ral every night at bedtime for neuropathy 02/26/2019 04/07/2019 Inactive gabapentin 300 mg capsule RxNorm: 997834 1 Capsule(s) O ral every night at bedtime for neuropathy 02/20/2019 02/25/2019 Inactive buspirone 5 mg tablet RxNorm: 193873 TAKE 1 TABLET THREE TIMES MILDRED Y 02/12/2019 No Stop Date Active pramipexole 1 mg tablet RxNorm: 114761 1 Tablet(s) Oral QPM FOR RESTLESS LEGS (REPLACES REQUIP) 02/12/2019 02/07/2020 Active Lexapro 10 mg tablet RxNorm: 566315 TAKE 1 TABLET EVERY DAY FOR MOO D 01/31/2019 No Stop Date Active Ativan 0.5 mg tablet RxNorm: 796386 TAKE 1 TABLET BY MO UT THREE TIMES DAILY NEEDED FOR ANXIETY 01/26/2019 04/28/2019 Inactive Ativan 0.5 mg tablet RxNorm: 753387 TAKE 1 TABLET BY MO UT THREE TIMES DAILY NEEDED FOR ANXIETY 01/05/2019 01/05/2019 Inactive Levaquin 500 mg tablet RxNorm: 794442 1 Tablet(s) Oral QD 12/25/2018 12/24/2018 Inactive Levaquin 500 mg tablet RxNorm: 118354 1 Tablet(s) Oral QD 12/25/2018 01/04/2019 Inactive baclofen 10 mg tablet RxNorm: 801338 1 Tablet(s) Oral three maico es a day 11/20/2018 01/19/2019 Inactive Ativan 0.5 mg tablet RxNorm: 428954 TAKE 1 TABLET BY [facility] THREE TIMES DAILY NEEDED FOR ANXIETY 11/20/2018 01/04/2019 Inactive gabapentin 300 mg capsule RxNorm: 681193 1 Capsule(s) O ral every night at bedtime for neuropathy 11/20/2018 12/20/2018 Inactive Lexapro 10 mg tablet RxNorm: 877083 1 Tablet(s) PO QD for mood 07/201801/30/2019 Inactive Zithromax Z-Lj 250 mg tablet RxNorm: 451737 Tablet(s) PO take as directed 11/04/2018 11/19/2018 Inactive Insulin Syringe 1 mL 29 gauge x 1/2" RxNorm: 2 s yringes daily with insulin Dx: E11.65 10/08/2018 No Stop Date Active gabapentin 300 mg capsule RxNorm: 313460 1 Capsule(s) PO QHS fo r neuropathy 09/18/2018 10/17/2018 Inactive cyclobenzaprine 5 mg tablet RxNorm: 890324 1 Tablet(s) PO TID a s needed 09/09/2018 09/08/2018 Inactive cyclobenzaprine 5 mg tablet RxNorm: 079753 1 Tablet(s) PO TID a s needed 09/09/2018 10/08/2018 Inactive prednisone 20 mg tablet RxNorm: 662352 1 Tablet(s) PO QD 09/08/2018 0 09/12/2018 Inactive Lantus Solostar U-100 Insulin 100 unit/mL (3 mL) subcu taneous pen RxNorm: 357366 55 Unit(s) SQ QAM 08/28/2018 11/03/2018 Inactive hydroxyzine HCl 25 mg tablet RxNorm: 648024 1 Tablet(s) PO QHS for itching 08/20/2018 10/18/2018 Inactive Lexapro 10 mg tablet RxNorm: 579494 1 Tablet(s) PO QD for mood 08/0210/18/2018 Inactive sumatriptan 100 mg tablet RxNorm: 195710 1 Tablet(s) PO at headache onset. May repeat 1 in two hours if headache remains. Max of 2 per 24 hours 04/02/2018 05/20/2018 Inactive Diflucan 150 mg tablet RxNorm: 397102 1 Tablet(s) PO QD 03/18/2018 Inactive Diflucan 150 mg tablet RxNorm: 841960 1 Tablet(s) PO QD 03/18/2018 Inactive Flagyl 500 mg tablet RxNorm: 035961 1 Tablet(s) PO TID 03/17/2018 Inactive Levaquin 500 mg tablet RxNorm: 620126 1 Tablet(s) PO QD 03/17/2018 Inactive Levaquin 500 mg tablet RxNorm: 955629 1 Tablet(s) PO QD 03/17/2018 Inactive Flagyl 500 mg tablet RxNorm: 068332 1 Tablet(s) PO TID 03/17/2018 Inactive ketoconazole 200 mg tablet RxNorm: 996649 1 Tablet(s) PO QD 019 03/19/2018 Inactive Celebrex 200 mg capsule RxNorm: 626383 1 Capsule(s) PO BID 02/06/20 18 05/20/2018 Inactive tramadol 50 mg tablet RxNorm: 371428 1 Tablet(s) PO TID as needed 1 04/08/2017 05/20/2018 Inactive gabapentin 300 mg capsule RxNorm: 430741 1 Capsule(s) PO BID 201705/20/2018 Inactive Diflucan 150 mg tablet RxNorm: 222747 1 Tablet(s) PO QD 01/20/2018 Inactive pramipexole 1 mg tablet RxNorm: 356682 1 Tablet(s) PO Q PM FOR RESTLESS LEGS (REPLACES REQUIP) 01/08/2018 02/11/2019 Inactive cyclobenzaprine 10 mg tablet RxNorm: 367786 1 Tablet(s) PO TID as needed for muscle spasm 12/17/2017 05/20/2018 Inactive pramipexole 1 mg tablet RxNorm: 391585 TAKE 1 TABLET BY MOUTH ONCE DAILY IN THE EVENING FOR RESTLESS LEGS (REPLACES REQUIP) 12/04/2017 01/05/2018 Inac tive Amaryl 4 mg tablet RxNorm: 431802 1 Tablet(s) PO BID replaces 2mg 0 11/05/2017 12/16/2017 Inactive Singulair 10 mg tablet RxNorm: 210082 1 Tablet(s) PO QHS for al lergies/lungs 10/30/2017 12/16/2017 Inactive Diflucan 100 mg tablet RxNorm: 193380 1 Tablet(s) PO QD 10/23/2017 Inactive Ativan 0.5 mg tablet RxNorm: 069638 TAKE 1 TABLET BY MOUTH THRE E TIMES DAILY 08/30/2017 11/20/2018 Inactive buspirone 5 mg tablet RxNorm: 694015 1 Tablet(s) PO TID 07/11/2017 Inactive propranolol 60 mg tablet RxNorm: 740308 1 Tablet(s) PO BID repl aces 40mg dose 06/26/2017 12/16/2017 Inactive Amaryl 4 mg tablet RxNorm: 586861 1 Tablet(s) PO BID replaces 2mg 0 06/12/2017 11/05/2017 Inactive omeprazole 40 mg capsule,delayed release RxNorm: 229316 1 Capsule(s) PO BID TAKE ONE CAPSULE BY MOUTH TWICE DAILY 05/30/2017 11/25/2017 Inactive pramipexole 1 mg tablet RxNorm: 581274 1 Tablet(s) PO Q PM for restless legs--replaces requip 05/30/2017 11/25/2017 Inactive amitriptyline 50 mg tablet RxNorm: 853604 1 Tablet(s) PO QHS 201709/16/2017 Inactive Diflucan 100 mg tablet RxNorm: 001124 1 Tablet(s) PO BID 05/07/2017 0 05/20/2017 Inactive nystatin (bulk) 100 million unit powder RxNorm: Application TO P BID 05/07/2017 05/20/2018 Inactive cholestyramine (with sugar) 4 gram oral powder RxNorm: 144667 1 Unit Dose PO QD 05/07/2017 01/20/2018 Inactive Ativan 0.5 mg tablet RxNorm: 424246 TAKE ONE TABLET BY MOUTH TH REE TIMES DAILY 05/01/2017 09/02/2017 Inactive Trulicity 1.5 mg/0.5 mL subcutaneous pen injector RxNorm: 15 93287 1 Unit Dose SQ WEEKLY 02/22/2017 03/23/2017 Inactive doxycycline hyclate 100 mg capsule RxNorm: 3422605 1 Capsule(s) PO BID 01/23/2017 02/05/2017 Inactive Amaryl 4 mg tablet RxNorm: 864765 1 Tablet(s) PO BID replaces 2mg 1 03/25/2016 05/22/2017 Inactive magnesium oxide 400 mg capsule RxNorm: 194542 1 Capsule(s) PO QD 07/18/2017 Inactive Ativan 0.5 mg tablet RxNorm: 614019 TAKE ONE TABLET BY MOUTH TH REE TIMES DAILY 01/17/2017 05/01/2017 Inactive Amaryl 2 mg tablet RxNorm: 021621 1 Tablet(s) PO BID 12/27/201601/22 Inactive Amaryl 2 mg tablet RxNorm: 705940 1 Tablet(s) PO BID 12/26/201612/26 Inactive Ativan 0.5 mg tablet RxNorm: 570669 TAKE ONE TABLET BY MOUTH TH REE TIMES DAILY 12/05/2016 01/18/2017 Inactive pramipexole 1 mg tablet RxNorm: 914756 1 Tablet(s) PO Q PM for restless legs--replaces requip 11/26/2016 05/30/2017 Inactive Mobic 15 mg tablet RxNorm: 992535 1 Tablet(s) PO QD 10/08/20162016 Inactive cyclobenzaprine 5 mg tablet RxNorm: 150907 1/2- 1 Tablet(s) PO TID 10/08/2016 10/17/2016 Inactive Ativan 0.5 mg tablet RxNorm: 583247 1 Tablet(s) PO TID 09/20/201607/2016 Inactive amitriptyline 50 mg tablet RxNorm: 059681 1 Tablet(s) PO QHS 201605/30/2017 Inactive propranolol 60 mg tablet RxNorm: 993914 1 Tablet(s) PO BID repl aces 40mg dose 09/19/2016 06/26/2017 Inactive Ativan 0.5 mg tablet RxNorm: 945653 1 Tablet(s) PO TID 08/20/2016 Inactive omeprazole 40 mg capsule,delayed release RxNorm: 563552 1 Capsule(s) PO BID TAKE ONE CAPSULE BY MOUTH TWICE DAILY 08/20/2016 05/30/2017 Inactive amitriptyline 50 mg tablet RxNorm: 700505 1 Tablet(s) PO QHS 201609/18/2016 Inactive pramipexole 1 mg tablet RxNorm: 107017 1 Tablet(s) PO Q PM for restless legs--replaces requip 07/23/2016 11/25/2016 Inactive Amaryl 2 mg tablet RxNorm: 776504 1 Tablet(s) PO BID 07/23/201612/27 Inactive propranolol 40 mg tablet RxNorm: 647628 1 Tablet(s) PO BID 07/13/19 17 09/18/2016 Inactive Ativan 0.5 mg tablet RxNorm: 318038 1 Tablet(s) PO QID 06/19/2016 Inactive Amaryl 2 mg tablet RxNorm: 364072 1 Tablet(s) PO BID 06/19/201607/22 Inactive Ativan 0.5 mg tablet RxNorm: 980203 1 Tablet(s) PO QID 06/19/2016 Inactive buspirone 5 mg tablet RxNorm: 967598 1 Tablet(s) PO TID 06/19/2016 Inactive Ativan 0.5 mg tablet RxNorm: 854994 1 Tablet(s) PO BID 05/24/2016 Inactive buspirone 5 mg tablet RxNorm: 308186 1 Tablet(s) PO TID 05/23/2016 Inactive Macrobid 100 mg capsule RxNorm: 088876 1 Capsule(s) PO QOD 05/03/19 17 10/07/2016 Inactive pramipexole 1 mg tablet RxNorm: 896626 Tablet(s) 1 Tabl et(s) PO QPM for restless legs--replaces requip 04/26/2016 06/24/2016 Inactive propranolol 40 mg tablet RxNorm: 305369 TAKE ONE TABLET BY MOUT H TWICE DAILY 04/26/2016 06/24/2016 Inactive Detrol LA 4 mg capsule,extended release RxNorm: 499726 1 Capsul e(s) PO QHS 04/03/2016 05/02/2016 Inactive prednisone 20 mg tablet RxNorm: 224362 1 Tablet(s) PO QD 02/29/2016 0 03/04/2016 Inactive Actos 30 mg tablet RxNorm: 129747 TAKE ONE TABLET BY MOUTH ONCE DAILY 02/27/2016 12/19/2016 Inactive clindamycin 300 mg capsule RxNorm: 241565 1 Capsule(s) PO TID 02/0102/08/2016 Inactive Flagyl 500 mg tablet RxNorm: 556859 1 Tablet(s) PO BID 02/02/201609/2015 Inactive omeprazole 40 mg capsule,delayed release RxNorm: 190336 TAKE ONE CAPSULE BY MOUTH TWICE DAILY 01/15/2016 07/12/2016 Inactive gabapentin 300 mg capsule RxNorm: 629144 1 Capsule(s) PO QAM an d 2 po q HS 01/05/2016 06/18/2016 Inactive gabapentin 300 mg capsule RxNorm: 653063 1 Capsule(s) P O BID 1 Capsule(s) PO QHS 12/05/2015 01/04/2016 Inactive cyclobenzaprine 10 mg tablet RxNorm: 268288 1 Tablet(s) PO TID for spasm as needed for muscle spasm 12/05/2015 06/18/2016 Inactive ciprofloxacin 250 mg tablet RxNorm: 632190 1 Tablet(s) PO BID 12/0412/14/2015 Inactive pramipexole 1 mg tablet RxNorm: 109961 Tablet(s) 1 Tabl et(s) PO QPM for restless legs--replaces requip 11/07/2015 11/26/2016 Inactive Januvia 100 mg tablet RxNorm: 506474 1 Tablet(s) PO QD 10/26/201504/2015 Inactive propranolol 40 mg tablet RxNorm: 549024 TAKE ONE TABLET BY MOUT H TWICE DAILY 10/25/2015 04/21/2016 Inactive gabapentin 300 mg capsule RxNorm: 061298 1 Capsule(s) PO QHS 201512/04/2015 Inactive Cipro 500 mg tablet RxNorm: 360806 1 Tablet(s) PO BID 10/05/201511/2015 Inactive pramipexole 1 mg tablet RxNorm: 042689 Tablet(s) 1 Tabl et(s) PO QPM for restless legs--replaces requip 10/04/2015 11/02/2015 Inactive propranolol 40 mg tablet RxNorm: 274816 TAKE ONE TABLET BY MOUT H TWICE DAILY 09/26/2015 10/24/2015 Inactive Amaryl 2 mg tablet RxNorm: 798740 1 Tablet(s) PO QD 09/15/20152016 Inactive gabapentin 300 mg capsule RxNorm: 965011 1 Capsule(s) PO QHS 201510/14/2015 Inactive buspirone 5 mg tablet RxNorm: 913131 1 Tablet(s) PO TID 09/15/2015 Inactive pramipexole 1 mg tablet RxNorm: 857913 Tablet(s) 1 Tabl et(s) PO QPM for restless legs--replaces requip 09/08/2015 10/03/2015 Inactive pramipexole 1 mg tablet RxNorm: 402211 1 Tablet(s) PO Q PM for restless legs--replaces requip 08/08/2015 09/08/2015 Inactive Amaryl 2 mg tablet RxNorm: 976863 1 Tablet(s) PO QD 07/07/20152015 Inactive pramipexole 1 mg tablet RxNorm: 431198 1 Tablet(s) PO Q PM for restless legs--replaces requip 07/05/2015 08/03/2015 Inactive ropinirole 2 mg tablet RxNorm: 320053 TAKE ONE TABLET BY MOUTH TWICE DAILY 05/09/2015 09/14/2015 Inactive Diflucan 100 mg tablet RxNorm: 305172 1 Tablet(s) PO QD 03/30/2015 Inactive propranolol 40 mg tablet RxNorm: 888275 1 Tablet(s) PO BID 02/24/20 15 08/21/2015 Inactive [SAVINGS FOR UNINSURED PATIE NTS -- BIN:520039, PCN: ASPROD1, Group: AME08, ID# [id number], Process claim through [employer], for questions: . THIS IS NOT INSURANCE.] Flagyl 500 mg tablet RxNorm: 424320 1 Tablet(s) PO BID 02/03/201502/2015 Inactive Cipro 500 mg tablet RxNorm: 466273 1 Tablet(s) PO BID 02/03/201502/01 Inactive Carafate 1 gram tablet RxNorm: 332150 1 Tablet(s) PO QID make i nto slurry 02/03/2015 09/14/2015 Inactive ondansetron HCl 4 mg tablet RxNorm: 235845 1 Tablet(s) PO Q4H as needed for nausea 12/29/2014 01/04/2016 Inactive Diflucan 100 mg tablet RxNorm: 030998 1 Tablet(s) PO QD 12/29/2014 Inactive Keflex 500 mg capsule RxNorm: 675366 1 Capsule(s) PO TID 12/29/2014 1 03/09/2014 Inactive omeprazole 40 mg capsule,delayed release RxNorm: 014385 1 Capsu le(s) PO BID 12/27/2014 12/21/2015 Inactive [SAVINGS FOR UNINSUR ED PATIENTS -- BIN:641185, PCN: ASPROD1, Group: AME08, ID# [id number], Process claim through [employer], for questions: . THIS IS NOT INSURANCE.] ropinirole 2 mg tablet RxNorm: 342988 1 Tablet(s) PO BID 09/29/2014 0 03/27/2015 Inactive [SAVINGS FOR UNINSURED PATIENTS -- BIN:0 71960, PCN: ASPROD1, Group: AME08, ID# [id number], Process claim through [employer], for questions: . THIS IS NOT INSURANCE.] buspirone 5 mg tablet RxNorm: 769964 1 Tablet(s) PO TID 09/17/2014 Inactive ropinirole 2 mg tablet RxNorm: 719964 1 Tablet(s) PO BID 09/02/2014 0 09/28/2014 Inactive [SAVINGS FOR UNINSURED PATIENTS -- BIN:0 46623, PCN: ASPROD1, Group: AME08, ID# [id number], Process claim through [employer], for questions: . THIS IS NOT INSURANCE.] Zyrtec 10 mg tablet RxNorm: 8303964 1 Tablet(s) PO QD 09/02/201412/02 Inactive propranolol 40 mg tablet RxNorm: 581823 1 Tablet(s) PO BID 07/21/19 15 02/23/2015 Inactive [SAVINGS FOR UNINSURED PATIE NTS -- BIN:774672, PCN: ASPROD1, Group: AME08, ID# [id number], Process claim through [employer], for questions: . THIS IS NOT INSURANCE.] ropinirole 2 mg tablet RxNorm: 982792 1 Tablet(s) PO QHS 05/14/2014 0 09/01/2014 Inactive [SAVINGS FOR UNINSURED PATIENTS -- BIN:0 98646, PCN: ASPROD1, Group: AME08, ID# [id number], Process claim through [employer], for questions: . THIS IS NOT INSURANCE.] cyclobenzaprine 10 mg tablet RxNorm: 428803 1 Tablet(s) PO QHS for spasm 04/06/2014 09/01/2014 Inactive ipratropium-albuterol 0.5 mg-3 mg(2.5 mg base)/3 mL ne bulization soln RxNorm: 9486456 1 Unit Dose INH Q4H 03/16/2014 No Stop Date Active [SAVINGS FOR UNINSURED PATIENTS -- BIN:317695, PCN: ASPROD1, Group: AME08, ID# [id number], Process claim through [employer], for questions: . THIS IS NOT INSURANCE.] prednisone 20 mg tablet RxNorm: 196338 1 Tablet(s) PO BID 03/09/2014 03/15/2014 Inactive [SAVINGS FOR UNINSURED PATIENTS -- BIN:0 35751, PCN: ASPROD1, Group: AME08, ID# [id number], Process claim through [employer], for questions: . THIS IS NOT INSURANCE.] ipratropium-albuterol 0.5 mg-3 mg(2.5 mg base)/3 mL ne bulization soln RxNorm: 7197455 1 Unit Dose INH Q4H 03/09/2014 03/15/2014 Inactive [SAVINGS FOR UNINSURED PATIENTS -- BIN:748072, PCN: ASPROD1, Group: AME08, ID# [id number], Process claim through [employer], for questions: . THIS IS NOT INSURANCE.] Levaquin 500 mg tablet RxNorm: 534464 1 Tablet(s) PO QD 03/09/2014 Inactive [SAVINGS FOR UNINSURED PATIENTS -- BIN:0 69524, PCN: ASPROD1, Group: AME08, ID# [id number], Process claim through [employer], for questions: . THIS IS NOT INSURANCE.] Carafate 1 gram tablet RxNorm: 662859 1 Tablet(s) PO AC & HS ma ke into slurry 02/09/2014 09/01/2014 Inactive [SAVINGS FOR UNINSUR ED PATIENTS -- BIN:125240, PCN: ASPROD1, Group: AME08, ID# [id number], Process claim through [employer], for questions: . THIS IS NOT INSURANCE.] Fioricet 50 mg-300 mg-40 mg capsule RxNorm: 3162044 1-2 Capsule(s) PO Q4H as needed for headache --max of 6 a day 02/09/2014 09/01/2014 Inactive [SAVINGS FOR UNINSURED PATIENTS -- BIN:744945, PCN: ASPROD1, Group: AME08, ID# [id number], Process claim through [employer], for questions: . THIS IS NOT INSURANCE.] propranolol 40 mg tablet RxNorm: 004780 1 Tablet(s) PO BID 12/08/19 14 06/04/2014 Inactive [SAVINGS FOR UNINSURED PATIE NTS -- BIN:123993, PCN: ASPROD1, Group: AME08, ID# [id number], Process claim through [employer]Imp[employer], for questions: . THIS IS NOT INSURANCE.] buspirone 5 mg tablet RxNorm: 082051 1 Tablet(s) PO TID 12/02/2013 Inactive omeprazole 40 mg capsule,delayed release RxNorm: 047191 1 Capsu le(s) PO BID 11/25/2013 11/19/2014 Inactive [SAVINGS FOR UNINSUR ED PATIENTS -- BIN:221426, PCN: ASPROD1, Group: AME08, ID# [id number], Process claim through [employer], for questions: . THIS IS NOT INSURANCE.] ropinirole 2 mg tablet RxNorm: 215035 1 Tablet(s) PO QHS 11/10/2013 0 05/08/2014 Inactive [SAVINGS FOR UNINSURED PATIENTS -- BIN:0 17063, PCN: ASPROD1, Group: AME08, ID# [id number], Process claim through [employer], for questions: . THIS IS NOT INSURANCE.] Cipro 500 mg tablet RxNorm: 696980 1 Tablet(s) PO BID 10/21/201312/03 Inactive [SAVINGS FOR UNINSURED PATIENTS -- BIN:0 98048, PCN: ASPROD1, Group: AME08, ID# [id number], Process claim through [employer]Imp[employer], for questions: . THIS IS NOT INSURANCE.] hydroxyzine HCl 25 mg tablet RxNorm: 280950 1 Tablet(s) PO Q4-6 H as needed 10/05/2013 01/04/2016 Inactive [SAVINGS FOR UNINSUR ED PATIENTS -- BIN:543937, PCN: ASPROD1, Group: AME08, ID# [id number], Process claim through MedImp[employer], for questions: . THIS IS NOT INSURANCE.] triamcinolone acetonide 0.1 % topical cream RxNorm: 3584720 Appl ication TOP BID 10/05/2013 09/01/2014 Inactive [SAVINGS FOR UNINSUR ED PATIENTS -- BIN:733754, PCN: ASPROD1, Group: AME08, ID# [id number], Process claim through [employer], for questions: . THIS IS NOT INSURANCE.] albuterol sulfate HFA 90 mcg/actuation aerosol inhaler RxNor m: 7014491 2 Puff(s) INH Q4H as needed for cough 10/01/2013 12/22/2013 Inactive [MAKSIM INGS FOR UNINSURED PATIENTS -- BIN:505310, PCN: ASPROD1, Group: AME08, ID# [id number], Process claim through [employer], for questions: . THIS IS NOT INSURANCE.] propranolol 40 mg tablet RxNorm: 916864 1 Tablet(s) PO BID 09/02/19 14 11/29/2013 Inactive [SAVINGS FOR UNINSURED PATIE NTS -- BIN:175937, PCN: ASPROD1, Group: AME08, ID# [id number], Process claim through [employer], for questions: . THIS IS NOT INSURANCE.] propranolol 40 mg tablet RxNorm: 276153 1 Tablet(s) PO BID 08/05/19 14 08/31/2013 Inactive [SAVINGS FOR UNINSURED PATIE NTS -- BIN:475269, PCN: ASPROD1, Group: AME08, ID# [id number], Process claim through [employer]Imp[employer], for questions: . THIS IS NOT INSURANCE.] Toprol XL 50 mg tablet,extended release RxNorm: 916693 1 Tablet (s) PO QHS 07/23/2013 08/03/2013 Inactive Macrobid 100 mg capsule RxNorm: 738688 1 Capsule(s) PO BID 07/04/19 14 07/09/2013 Inactive Toprol XL 50 mg tablet,extended release RxNorm: 526429 1 Tablet (s) PO QHS 05/28/2013 06/26/2013 Inactive ciprofloxacin 500 mg tablet RxNorm: 852414 1 Tablet(s) PO BID 05/2706/02/2013 Inactive Bystolic 5 mg tablet RxNorm: 054429 1 Tablet(s) PO QD 05/27/201305/03 Inactive ropinirole 2 mg tablet RxNorm: 395659 1 Tablet(s) PO QHS 04/22/2013 0 11/09/2013 Inactive Cipro 250 mg tablet RxNorm: 530188 1 Tablet(s) PO BID 04/06/201311/2013 Inactive ropinirole 2 mg tablet RxNorm: 071585 1 Tablet(s) PO QHS 02/17/2013 0 04/21/2013 Inactive Amaryl 2 mg tablet RxNorm: 651517 1 Tablet(s) PO QAM 11/11/201211/10 Inactive Amaryl 2 mg tablet RxNorm: 974873 1 Tablet(s) PO QAM 11/11/201204/05 Inactive omeprazole 40 mg capsule,delayed release RxNorm: 300023 1 Capsu le(s) PO BID 08/14/2012 08/08/2013 Inactive Bystolic 5 mg tablet RxNorm: 556839 1 Tablet(s) PO QD 08/14/201205/03 Inactive propranolol 60 mg tablet RxNorm: 404647 Tablet(s) PO TAKE 1 TAB LET TWICE DAILY 08/01/2012 09/01/2012 Inactive Bystolic 5 mg tablet RxNorm: 525664 1 Tablet(s) PO QD 07/21/201207/02 Inactive Bystolic 5 mg tablet RxNorm: 010638 1 Tablet(s) PO QD 07/21/201207/03 Inactive Prilosec 40 mg capsule,delayed release RxNorm: 687091 1 Capsule (s) PO BID 06/24/2012 07/21/2012 Inactive buspirone 10 mg tablet RxNorm: 671588 1 Tablet(s) PO TID 05/08/2012 0 05/23/2016 Inactive Valium 10 mg tablet RxNorm: 879566 1 Tablet(s) PO BID 04/02/201207/03 Inactive Endocet 10 mg-325 mg tablet RxNorm: 5220619 1 Tablet(s) PO QID 03/0607/21/2012 Inactive as needed for severe pain Valium 10 mg tablet RxNorm: 666723 1 Tablet(s) PO BID 02/27/2012 No S top Date Active Endocet 10 mg-325 mg tablet RxNorm: 7774898 1 Tablet(s) PO QID 02/0203/27/2012 Inactive as needed for severe pain Endocet 10 mg-325 mg tablet RxNorm: 2791403 1 Tablet(s) PO QID 01/0302/26/2012 Inactive as needed for severe pain Valium 10 mg tablet RxNorm: 373187 1 Tablet(s) PO BID 01/29/2012 No S top Date Active Protonix 40 mg tablet,delayed release RxNorm: 532740 1 Tablet(s ) PO QD 01/28/2012 07/21/2012 Inactive metformin ER 500 mg tablet,extended release 24 hr RxNorm: 86 0977 1 Tablet(s) PO QD 12/26/2011 07/20/2012 Inactive Trazadone 150 mg Tablet RxNorm: 1 Tablet(s) PO QHS prn sleep 1 04/23/2012 Inactive Endocet 10 mg-325 mg tablet RxNorm: 2594658 1 Tablet(s) PO QID 12/0301/24/2012 Inactive as needed for severe pain Nexium 40 mg capsule,delayed release RxNorm: 309147 1 Capsule(s ) PO QD 12/26/2011 01/27/2012 Inactive Symbicort 160 mcg-4.5 mcg/actuation HFA Aerosol Inhaler RxNo rm: 9624596 2 Puff(s) INH BID 12/04/2011 07/21/2012 Inactive Endocet 10 mg-325 mg tablet RxNorm: 1391988 1 Tablet(s) PO QID 11/0312/25/2011 Inactive as needed for severe pain metformin ER 500 mg tablet,extended release 24 hr RxNorm: 86 0977 1 Tablet(s) PO QD 11/20/2011 12/19/2011 Inactive metformin ER 500 mg tablet,extended release 24 hr RxNorm: 86 0977 1 Tablet(s) PO QD 11/20/2011 11/19/2011 Inactive amitriptyline 100 mg tablet RxNorm: 227012 Tablet(s) PO QHS 1 a nd 1/2 tabs QHS 11/12/2011 11/13/2011 Inactive Valium 10 mg tablet RxNorm: 813455 1 Tablet(s) PO BID 11/09/2011 No S top Date Active Endocet 10 mg-325 mg tablet RxNorm: 9330667 1 Tablet(s) PO QID 10/0211/14/2011 Inactive as needed for severe pain Aricept 10 mg Tab RxNorm: 798271 1 Tablet(s) PO QD 10/05/2011 013 Inactive Valium 10 mg tablet RxNorm: 607946 1 Tablet(s) PO BID 10/05/2011 No S top Date Active Endocet 10 mg-325 mg Tab RxNorm: 6468312 1 Tablet(s) PO QID 012 10/09/2011 Inactive as needed for severe pain Aricept 10 mg Tab RxNorm: 087291 1 Tablet(s) PO QD 08/14/2011 012 Inactive Endocet 10 mg-325 mg Tab RxNorm: 3632356 1 Tablet(s) PO QID 012 08/31/2011 Inactive as needed for severe pain Valium 10 mg Tab RxNorm: 953654 1 Tablet(s) PO BID 08/02/2011 No Stop Date Active propranolol 60 mg tablet RxNorm: 233072 1 Tablet(s) PO BID 07/26/19 12 09/11/2011 Inactive amitriptyline 100 mg tablet RxNorm: 815499 Tablet(s) PO QHS 1 a nd 2 tabs QHS 06/20/2011 09/11/2011 Inactive buspirone 10 mg tablet RxNorm: 648339 1 Tablet(s) PO BID 06/18/2011 0 09/15/2011 Inactive propranolol 60 mg Tab RxNorm: 908984 1 Tablet(s) PO BID 06/18/2011 Inactive gabapentin 800 mg Tab RxNorm: 821995 1 Tablet(s) PO BID 06/18/2011 Inactive ropinirole 2 mg tablet RxNorm: 157262 1 Tablet(s) PO QHS 05/29/2011 0 08/26/2011 Inactive trimethoprim 100 mg Tab RxNorm: 567325 1 Tablet(s) PO QHS 05/29/2011 07/21/2012 Inactive Endocet 10 mg-325 mg Tab RxNorm: 5491100 1 Tablet(s) PO QID 012 2011 Inactive as needed for severe pain Valium 10 mg Tab RxNorm: 792895 1 Tablet(s) PO QHS N eed to take med as prescribed. this is a 40 day RX. No early fills. 05/17/2011 05/20/2018 Inactive propranolol 60 mg Tab RxNorm: 843795 1 Tablet(s) PO BID 04/16/2011 Inactive Neurontin 800 mg Tab RxNorm: 817491 1 Tablet(s) PO QHS 04/05/201103/2011 Inactive Endocet 10 mg-325 mg Tab RxNorm: 7740732 1 Tablet(s) PO QID 012 05/02/2011 Inactive as needed for severe pain oxycodone-acetaminophen 10 mg-325 mg tablet RxNorm: 6516750 1 Ta blet(s) PO Q4H 03/28/2011 05/19/2012 Inactive Valium 10 mg Tab RxNorm: 245622 1 Tablet(s) PO QHS 03/28/2011 012 Inactive buspirone 10 mg Tab RxNorm: 882481 1 Tablet(s) PO BID 03/27/201106/02 Inactive propranolol 60 mg Tab RxNorm: 966087 1 Tablet(s) PO BID 03/19/2011 Inactive Klor-Con M20 20 mEq Tab RxNorm: 7721714 1 Tablet(s) PO QD 03/19/2011 07/21/2012 Inactive Aricept 10 mg Tab RxNorm: 212035 1 Tablet(s) PO QD 02/27/2011 012 Inactive propranolol 60 mg Tab RxNorm: 121060 1 Tablet(s) PO BID 02/19/2011 Inactive omeprazole 40 mg capsule,delayed release RxNorm: 816785 1 Capsu le(s) PO BID 01/24/2011 05/23/2011 Inactive clindamycin 300 mg capsule RxNorm: 686374 1 Capsule(s) PO TID 01/2402/02/2011 Inactive propranolol 60 mg Tab RxNorm: 377498 1 Tablet(s) PO BID 01/22/2011 No Stop Date Active nystatin 100,000 unit/g Topical Cream RxNorm: 242304 Applicatio n TOP BID 01/15/2011 01/14/2011 Inactive to rash for 2-4 week s Diflucan 200 mg Tab RxNorm: 025931 1 Tablet(s) PO QD 01/15/201101/28 Inactive buspirone 10 mg Tab RxNorm: 928764 1 Tablet(s) PO BID 01/08/201103/05 Inactive Valium 10 mg Tab RxNorm: 169113 1 Tablet(s) PO QHS 01/05/2011 012 Inactive Diflucan 200 mg Tab RxNorm: 596439 1 Tablet(s) PO QD 01/01/201101/14 Inactive Diflucan 200 mg Tab RxNorm: 040111 1 Tablet(s) PO QD 12/18/201012/31 Inactive Valium 10 mg Tab RxNorm: 741019 1 Tablet(s) PO QHS 12/12/2010 011 Inactive Diflucan 200 mg Tab RxNorm: 093543 1 Tablet(s) PO QD 12/07/201012/18 Inactive Aricept 10 mg Tab RxNorm: 103731 1 Tablet(s) PO QD 11/20/2010 011 Inactive ropinirole 1 mg Tab RxNorm: 707575 1 Tablet(s) PO QHS 11/16/201005/03 Inactive enalapril maleate 5 mg Tab RxNorm: 672068 1 Tablet(s) PO QD 011 05/20/2018 Inactive buspirone 10 mg Tab RxNorm: 366470 1 Tablet(s) PO BID 11/16/201012/02 Inactive Valium 10 mg Tab RxNorm: 229874 1 Tablet(s) PO QHS 11/07/2010 011 Inactive Pyridium 100 mg Tab RxNorm: 5643111 1 Tablet(s) PO TID 11/02/201004/2010 Inactive Macrobid 100 mg Cap RxNorm: 1535907 1 Capsule(s) PO BID 11/02/2010 Inactive buspirone 10 mg Tab RxNorm: 287008 1 Tablet(s) PO QHS 10/18/201005/02 Inactive propranolol 60 mg Tab RxNorm: 643100 1 Tablet(s) PO BID 09/18/2010 Inactive Valium 10 mg Tab RxNorm: 608637 1 Tablet(s) PO QHS 09/05/2010 011 Inactive Aricept 10 mg Tab RxNorm: 724935 1 Tablet(s) PO QD 08/14/2010 011 Inactive Valium 10 mg Tab RxNorm: 178899 1 Tablet(s) PO QHS 06/26/2010 011 Inactive ropinirole 1 mg Tab RxNorm: 919369 1 Tablet(s) PO QHS 06/19/201010/02 Inactive omeprazole 40 mg Cap, delayed release RxNorm: 889577 1 Capsule( s) PO QD 06/07/2010 10/04/2010 Inactive Endocet 10 mg-325 mg Tab RxNorm: 3037153 1 Tablet(s) PO QID as needed for severe pain 06/07/2010 03/07/2011 Inactive Endocet 10 mg-325 mg Tab RxNorm: 6526514 1 Tablet(s) PO QID as needed for severe pain 05/04/2010 06/02/2010 Inactive Valium 10 mg Tab RxNorm: 313211 1 Tablet(s) PO QHS 05/01/2010 011 Inactive propranolol 60 mg Tab RxNorm: 685376 1 Tablet(s) PO BID 04/03/2010 Inactive Valium 10 mg Tab RxNorm: 269826 1 Tablet(s) PO QHS 03/28/2010 011 Inactive omeprazole 40 mg Cap, Delayed Release RxNorm: 617636 1 Capsule( s) PO QD 03/28/2010 06/06/2010 Inactive Endocet 10 mg-325 mg Tab RxNorm: 3651172 1 Tablet(s) PO QID prn ari n 03/27/2010 05/20/2018 Inactive Valium 10 mg Tab RxNorm: 840095 1 Tablet(s) PO QHS 02/20/2010 011 Inactive Diflucan 100 mg Tab RxNorm: 088995 1 Tablet(s) PO BID 01/23/201003/2009 Inactive Diflucan 100 mg Tab RxNorm: 027728 1 Tablet(s) PO BID 01/05/201001/02 Inactive Aricept 10 mg Tab RxNorm: 312360 1 Tablet(s) PO QD 12/01/2009 011 Inactive OxyContin 20 mg 12 hr Tab RxNorm: 7396747 1 Tablet(s) PO BID 200904/05/2010 Inactive oxycodone-acetaminophen 10 mg-325 mg Tab RxNorm: 5979766 1 Table t(s) PO Q4H 11/22/2009 11/26/2009 Inactive Phenergan 25 mg Tab RxNorm: 274633 1 Tablet(s) PO PRN MIGRAINE 11/0303/07/2011 Inactive Demerol 100 mg Tab RxNorm: 308075 1 Tablet(s) PO PRN MIGRAINE 11/2203/07/2011 Inactive Oxycodone-Acetaminophen 10 mg-325 mg Tab RxNorm: 9505067 1 Table t(s) PO Q4H 10/11/2009 10/15/2009 Inactive Percocet 10 mg-325 mg Tab RxNorm: 6210769 1 Tablet(s) PO Q4H 200910/24/2009 Inactive propranolol 60 mg Tab RxNorm: 322609 1 Tablet(s) PO BID 08/29/2009 Inactive Valium 10 mg Tab RxNorm: 996445 1 Tablet(s) PO QHS 08/16/2009 010 Inactive Keflex 500 mg Cap RxNorm: 434557 1 Capsule(s) PO BID 07/25/200907/31 Inactive Hydroxyzine 25 mg Tab RxNorm: 516820 1 Tablet(s) PO TID 07/25/2009 Inactive Prednisone 20 mg Tab RxNorm: 339426 1 Tablet(s) PO BID 07/25/2009 Inactive Demerol 100 mg Tab RxNorm: 816932 1 Tablet(s) PO PRN MIGRAINE 07/25 No Stop Date Active Ropinirole 1 mg Tab RxNorm: 153743 1 Tablet(s) PO HS 07/20/200902/14 Inactive Valium 10 mg Tab RxNorm: 263109 1 Tablet(s) PO QHS 07/18/2009 010 Inactive Endocet 10 mg-325 mg Tab RxNorm: 9136764 1 Tablet(s) PO TID 010 07/07/2009 Inactive Demerol 100 mg Tab RxNorm: 714372 1 Tablet(s) PO PRN MIGRAINE 06/08 No Stop Date Active Ropinirole 1 mg Tab RxNorm: 591994 1 Tablet(s) PO HS 05/16/200907/14 Inactive ipratropium-albuterol 0.5 mg-3 mg(2.5 mg base)/3 mL ne bulization soln RxNorm: 5813781 1 Unit Dose INH Q4H as needed No Start Date Active diltiazem CD 240 mg capsule,extended release 24 hr RxNorm: 8 22872 1 Capsule(s) PO QD No Start Date Active metoprolol tartrate 25 mg tablet RxNorm: 847906 1 Tablet(s) PO BID No Start Date Active MagOx 400 mg (241.3 mg magnesium) tablet RxNorm: 755647 1 Table t(s) PO BID No Start Date Active Vitamin B12 1000mcg Tablet RxNorm: 1 Tablet(s) PO QD No Start Date Active Vitamin D3 5,000 unit tablet RxNorm: 437047 1 Tablet(s) PO QD No Star t Date Active Tylenol Arthritis Pain 650 mg tablet,extended release RxNorm : 5622511 1 Tablet(s) PO Q4H No Start Date Active Lotrimin AF 2 % topical powder RxNorm: 059768 1 Application TOP BID No Start Date Active enalapril maleate 5 mg Tab RxNorm: 270632 1 Tablet(s) PO QD No Star t Date 07/20/2012 Inactive Demerol 100 mg Tab RxNorm: 575705 Tablet(s) PO PRN MIGRAINE No Star t Date 06/02/2009 Inactive metformin 500 mg tablet RxNorm: 180186 1 Tablet(s) PO QD No Start D ate 04/05/2013 Inactive Breo Ellipta 100 mcg-25 mcg/dose powder for inhalation RxNor m: 9322707 1 Puff(s) INH BID No Start Date 01/04/2016 Inactive Mag-Oxide 400 mg Tab RxNorm: 298290 1 Tablet(s) PO QD No Start Date 0 07/21/2012 Inactive Cipro 500 mg Tab RxNorm: 911521 1 Tablet(s) PO QD No Start Date 04/05 Inactive Ativan 0.5 mg tablet RxNorm: 778156 1 Tablet(s) PO TID as needed No Start Date 05/06/2019 Inactive melatonin 3 mg tablet RxNorm: 952216 2 Tablet(s) PO QHS No Start Da te 08/19/2018 Inactive buspirone 10 mg Tab RxNorm: 603331 1 Tablet(s) PO QD No Start Date Inactive sucralfate 100 mg/mL Oral Susp RxNorm: 521212 2 Teaspoon(s) PO QID No Start Date 07/21/2012 Inactive hydrocodone 5 mg-acetaminophen 325 mg tablet RxNorm: 411533 1 Tablet(s) PO Q4H as needed No Start Date 08/19/2018 Inactive Amaryl 2 mg tablet RxNorm: 145927 1 Tablet(s) PO BID No Start Date Inactive OxyContin 20 mg 12 hr Tab RxNorm: 9273119 1 Tablet(s) PO BID No Sta rt Date 11/27/2009 Inactive propranolol 40 mg tablet RxNorm: 095340 1 Tablet(s) PO QID No Start Date 01/19/2018 Inactive Trazadone 150 mg Tablet RxNorm: 1-2 Tablet(s) PO QHS prn sleep No Start Date 08/09/2010 Inactive propranolol 60 mg Tab RxNorm: 138485 1/2 Tablet(s) PO BID No Start Date 01/21/2011 Inactive insulin NPH and regular human subcutaneous RxNorm: 0073287 subcu taneous No Start Date 11/20/2018 Inactive Ativan 0.5 mg tablet RxNorm: 746974 1 Tablet(s) PO QID No Start Date 06/18/2016 Inactive Vasotec 5 mg Tab RxNorm: 479632 1 Tablet(s) PO BID No Start Date 06/2011 Inactive Toprol XL 50 mg tablet,extended release RxNorm: 583292 1 Tablet (s) PO BID No Start Date 04/05/2013 Inactive Ativan 0.5 mg tablet RxNorm: 414233 1 Tablet(s) PO TID No Start Date 05/25/2016 Inactive Klor-Con M20 20 mEq Tab RxNorm: 0744632 1 Tablet(s) PO QD No Start Date 03/19/2011 Inactive sumatriptan 100 mg tablet RxNorm: 248975 1 Tablet(s) PO at headache onset--repeat in 2hrs if remains No Start Date 07/21/2012 Inactive propranolol 60 mg Tab RxNorm: 257050 1 Tablet(s) PO BID No Start Da te 08/28/2009 Inactive Cholestyramine Light 4 gram Oral Powder RxNorm: 8025958 1 Unit Dose PO QD in water No Start Date 07/21/2012 Inactive nystatin 100,000 unit/g Topical Powder RxNorm: 200483 Applicati on TOP BID No Start Date 07/21/2012 Inactive vitamin P59-llflh acid sublingual RxNorm: sublingual No Start Date 07/05/2013 Inactive cyclobenzaprine 5 mg tablet RxNorm: 824959 1/2-1 Tablet (s) PO TID as needed for muscle spasm No Start Date 07/18/2017 Inactive tramadol 50 mg tablet RxNorm: 331345 2 Tablet(s) PO TID as need ed for pain No Start Date 09/01/2014 Inactive aspirin 81 mg Tab RxNorm: 949160 1 Tablet(s) PO QOD No Start Date 04/2013 Inactive Vitamin B12 1000mcg Tablet RxNorm: 1 Tablet(s) PO QD No Start Date 07/18/2017 Inactive cholestyramine (with sugar) 4 gram oral powder RxNorm: 50632 3 1 Unit(s) PO QD as needed No Start Date 05/20/2018 Inactive ProAir HFA 90 mcg/Actuation Aerosol Inhaler RxNorm: 896030 2 Puff(s) INH Q4H prn shortness of breath No Start Date 07/21/2012 Inactive pravastatin 10 mg Tab RxNorm: 360088 1 Tablet(s) PO QD No Start Date 07/21/2012 Inactive gabapentin 800 mg Tab RxNorm: 411974 1 Tablet(s) PO BID No Start Da te 06/03/2011 Inactive Endocet 10 mg-325 mg Tab RxNorm: 0232707 1 Tablet(s) PO TID No Star t Date 06/02/2009 Inactive Naproxen 500 mg Tab RxNorm: 133580 1 Tablet(s) PO BID No Start Date 0 04/05/2010 Inactive Valium 10 mg Tab RxNorm: 006923 1 Tablet(s) PO BID No Start Date 07/04 Inactive enalapril maleate 5 mg Tab RxNorm: 631674 1 Tablet(s) PO QD No Star t Date 11/15/2010 Inactive doxepin 10 mg capsule RxNorm: 6228949 2 Capsule(s) PO QHS No Start Date 09/17/2018 Inactive MS Contin 15 mg Tab RxNorm: 182719 1 Tablet(s) PO BID No Start Date 0 09/18/2010 Inactive buspirone 5 mg tablet RxNorm: 778211 1 Tablet(s) PO TID No Start Da te 12/01/2013 Inactive [place] 3 Fish Oil Cap RxNorm: 1 Capsule(s) PO QD No Start Date 07/03 Inactive enalapril maleate 5 mg Tab RxNorm: 038803 1/2 Tablet(s) PO QD No St art Date 03/07/2011 Inactive Lyrica 75 mg capsule RxNorm: 511737 1 Capsule(s) PO QHS No Start Da te 02/08/2014 Inactive Lopressor 100 mg tablet RxNorm: 567645 1 Tablet(s) PO BID No Start Date 06/08/2018 Inactive Lantus Solostar U-100 Insulin 100 unit/mL (3 mL) subcu taneous pen RxNorm: 052299 45 Unit(s) SQ QAM No Start Date 05/20/2018 Inactive aspirin 81 mg tablet RxNorm: 446826 1 Tablet(s) PO QD No Start Date 0 09/14/2015 Inactive insulin NPH isophane U-100 human subcutaneous RxNorm: 147083 beckwith bcutaneous No Start Date 04/20/2019 Inactive sumatriptan 100 mg tablet RxNorm: 223310 1 Tablet(s) PO at headache onset. May repeat 1 in two hours if headache remains. Max of 2 per 24 hours No Start Date 04/01/2018 Inactive gabapentin 300 mg capsule RxNorm: 958009 1 Capsule(s) PO QHS No Sta rt Date 02/04/2018 Inactive Topamax 25 mg Tab RxNorm: 633576 Oral No Start Date 03/07/2011 In active Senokot-S 8.6 mg-50 mg Tab RxNorm: 9476319 1 Tablet(s) PO QD No Sta rt Date 03/07/2011 Inactive metformin ER 500 mg 24 hr tablet,extended release RxNorm: 18 20802 1 Tablet(s) PO QD No Start Date 05/20/2018 Inactive Symbicort 80 mcg-4.5 mcg/actuation HFA Aerosol Inhaler RxNor m: 3679938 2 Puff(s) INH BID No Start Date 04/05/2013 Inactive propranolol 60 mg Tab RxNorm: 073459 1/2 Tablet(s) PO BID No Start Date 07/21/2012 Inactive metformin ER 500 mg 24 hr tablet,extended release RxNorm: 18 43017 2 Tablet(s) PO QD No Start Date 12/16/2017 Inactive Insulin Syringe 1 mL 29 gauge x 1/2" RxNorm: 2 s yringes daily with insulin Dx: E11.65 No Start Date 10/07/2018 Inactive Amitriptyline 75 mg Tab RxNorm: 487954 1 Tablet(s) PO QHS No Start Date 10/23/2009 Inactive donepezil 10 mg Tab RxNorm: 454640 1 Tablet(s) PO QD No Start Date Inactive Lantus Solostar U-100 Insulin 100 unit/mL (3 mL) subcu taneous pen RxNorm: 678385 36 Unit(s) SQ QAM No Start Date 12/24/2017 Inactive Miacalcin 200 unit/Actuation Nasal [place] Aerosol RxNorm: 261 204 1 [place] NASAL QD Alternate nostrils each day No Start Date 04/05/2010 Inactive Amitriptyline 150 mg Tab RxNorm: 210314 1 Tablet(s) PO QHS No Start Date 01/04/2010 Inactive Bystolic 5 mg tablet RxNorm: 716432 1 Tablet(s) PO QD No Start Date 0 08/13/2012 Inactive Aricept 10 mg Tab RxNorm: 880493 1 Tablet(s) PO QD No Start Date 11/03 Inactive Lantus Solostar U-100 Insulin 100 unit/mL (3 mL) subcu taneous pen RxNorm: 974131 50 Unit(s) SQ QAM No Start Date 08/27/2018 Inactive albuterol sulfate 2.5 mg/3 mL (0.083 %) Neb Solution RxNorm: 900296 1 Unit Dose INH QID as needed No Start Date 08/23/2015 Inactive Symbicort 160 mcg-4.5 mcg/actuation HFA Aerosol Inhaler RxNo rm: 9841232 2 Puff(s) INH BID No Start Date 12/03/2011 Inactive Savella 50 mg Tab RxNorm: 554974 1 Tablet(s) PO BID No Start Date 04/2010 Inactive amitriptyline 100 mg Tab RxNorm: 256358 1 1/2 Tablet(s) PO QHS No S tart Date 06/19/2011 Inactive nystatin 100,000 unit/g Topical Cream RxNorm: 548597 Ap plication TOP BID to rash for 2-4 weeks No Start Date 01/14/2011 Inactive Trelegy Ellipta 100 mcg-62.5 mcg-25 mcg powder for inhalatio n RxNorm: 3878284 1 Puff(s) INH QD No Start Date 12/16/2017 Inactive Lyrica 150 mg capsule RxNorm: 694314 1 Capsule(s) PO QHS No Start D ate 12/04/2015 Inactive sennosides 8.6 mg tablet RxNorm: 634090 1 Tablet(s) PO BID No Start Date 09/07/2018 Inactive metformin ER 500 mg tablet,extended release 24 hr RxNorm: 86 0975 1 Tablet(s) PO QD No Start Date 10/22/2017 Inactive Fish Oil 1,000 mg Cap RxNorm: 1 Capsule(s) PO QD No Start Date 06/2011 Inactive Zyrtec 10 mg Tab RxNorm: 1341757 1 Tablet(s) PO QD No Start Date 07/03 Inactive albuterol sulfate HFA 90 mcg/actuation aerosol inhaler RxNor m: 6854318 2 Puff(s) INH Q4H as needed for cough No Start Date 09/30/2013 Inactive trazodone 150 mg tablet RxNorm: 107496 1 Tablet(s) PO QHS No Start Date 07/21/2012 Inactive Spiriva with HandiHaler 18 mcg & inhalation capsules RxNorm: 312056 1 Capsule(s) INH QD No Start Date 04/05/2013 Inactive Coreg 3.125 mg Tab RxNorm: 888596 1 Tablet(s) PO BID No Start Date Inactive Phenergan 25 mg Tab RxNorm: 435053 Tablet(s) PO PRN MIGRAINE No Sta rt Date 11/21/2009 Inactive Vitamin D 50,000 unit Cap RxNorm: 3405311 1 Capsule(s) PO QW No Sta rt Date 03/07/2011 Inactive Januvia 100 mg tablet RxNorm: 188618 1 Tablet(s) PO QD No Start Date 10/25/2015 Inactive Eliquis 5 mg tablet RxNorm: 2573953 1 Tablet(s) PO BID No Start Date 08/19/2018 Inactive Advair Diskus 500 mcg-50 mcg/Dose for Inhalation RxNorm: 420185 1 INH BID No Start Date 07/21/2012 Inactive Vitamin D3 5,000 unit tablet RxNorm: 629362 1 Tablet(s) PO QD No St art Date 07/18/2017 Inactive Amaryl 2 mg tablet RxNorm: 962366 1 Tablet(s) PO QD No Start Date 06/2015 Inactive Actos 30 mg tablet RxNorm: 249928 1 Tablet(s) PO QD No Start Date Inactive promethazine 25 mg tablet RxNorm: 283178 1 Tablet(s) PO Q4H prn N/V No Start Date 07/21/2012 Inactive ProAir HFA 90 mcg/actuation Aerosol Inhaler RxNorm: 950087 2 Puff(s) INH Q4H prn dyspnea No Start Date 07/21/2012 Inactive Dexilant 60 mg Capsule RxNorm: 148799 1 Capsule(s) PO QD No Start D ate 01/27/2012 Inactive Lantus Solostar U-100 Insulin 100 unit/mL (3 mL) subcu taneous pen RxNorm: 400764 38 Unit(s) SQ QAM No Start Date 05/20/2018 Inactive Valium 10 mg Tab RxNorm: 541679 1 Tablet(s) PO QHS AND PRN No Start Date 10/24/2009 Inactive ZOFRAN ODT 8 mg disintegrating tablet RxNorm: 782866 1 Tablet(s ) PO Q6H No Start [...] Date S ervice Location MICROALBUMIN URINE RANDOM 62041 MICRL MG/L 14.9 MG/L Unknown MICROALBUMIN URINE RANDOM 55394 XM.ALB/CRE 6.1 MG/GCR Unknown MICROALBUMIN URINE RANDOM 66942 CREAT MG/D 243 MG/DL Unknown MICROALBUMIN URINE RANDOM 31637 CRE/100 2.43 G/L 03/05 Unknown PROTEIN/CREAT URINE WITH RATIO 41732|94752 PROT R U 14 MG/D L 04/01/2014 Unknown PROTEIN/CREAT URINE WITH RATIO 81508|73077 CREAT R U 254 MG/ DL 04/01/2014 Unknown PROTEIN/CREAT URINE WITH RATIO 31871|39179 XRATIO P/C 55 MG/ G 04/01/2014 Unknown URINALYSIS 56296 PROTEIN UR NEG 04/28/2010 Unknown URINALYSIS 13619 HEMGLBN UR NEG 04/28/2010 Unknown URINALYSIS 35941 GLUCOSE UR NEG 04/28/2010 Unknown URINALYSIS 68618 KETONES UR NEG 04/28/2010 Unknown URINALYSIS 38664 PH U 5.5 04/28/2010 Unknown URINALYSIS 62354 SP GR U 1.025 04/28/2010 Unknown URINALYSIS 32314 BILRUBN UR NEG 04/28/2010 Unknown URINALYSIS 60293 LEUKO UR 2+ 04/28/2010 Unknown URINALYSIS 52329 NITRITE UR NEG 04/28/2010 Unknown MICR CUL? [id number] WBC/HPF 6-10 04/28/2010 Unknown MICR CUL? 8124509 RBC/HPF 0-5 04/28/2010 Unknown MICR CUL? [id number] HYAL CAST 16-25 04/28/2010 Unknown MICR CUL? [id number] SP TO YOLIE? NO 04/28/2010 Unknown MICR CUL? [id number] APPEAR UR NORMAL 04/28/2010 Unknown MICR CUL? [id number] SQ EPI/LPF FEW 04/28/2010 Unknown Procedures Procedure Codes Date URINALYSIS NONAUTO W/O SCOPE CPT-4: 53431 04/16/2019 URINE CULTURE/ COLONY COUNT CPT-4: 56506 04/16/2019 CEFTRIAXONE SODIUM INJECTION CPT-4: J0696 04/16/2019 THER/PROPH/DIAG INJ SC/IM CPT-4: 61116 04/16/2019 DRAIN/INJECT JOINT/BURSA CPT-4: 07743 01/22/2019 TRIAMCINOLONE ACET INJ NOS CPT-4: J3301 01/22/2019 DEXAMETHASONE SODIUM PHOS CPT-4: J1100 01/22/2019 URINE CULTURE/ COLONY COUNT CPT-4: 76385 01/07/2019 URINALYSIS NONAUTO W/O SCOPE CPT-4: 51727 01/07/2019 CEFTRIAXONE SODIUM INJECTION CPT-4: J0696 01/07/2019 THER/PROPH/DIAG INJ SC/IM CPT-4: 59831 01/07/2019 FLU VACC PRSV FREE INC ANTIG 65 AND OLDER CPT-4: 82760 12/24/2018 FLU VACC PRSV FREE INC ANTIG 65 AND OLDER CPT-4: 77182 12/24/2018 ADMIN INFLUENZA VIRUS VAC CPT-4: G0008 12/24/2018 THER/PROPH/DIAG INJ SC/IM CPT-4: 02120 11/04/2018 KETOROLAC TROMETHAMINE INJ CPT-4: J1885 11/04/2018 PROMETHAZINE HCL INJECTION CPT-4: J2550 11/04/2018 PPPS, subseq visit CPT-4: G0439 09/18/2018 THER/PROPH/DIAG INJ SC/IM CPT-4: 07713 04/01/2018 KETOROLAC TROMETHAMINE INJ CPT-4: J1885 04/01/2018 PROMETHAZINE HCL INJECTION CPT-4: J2550 04/01/2018 URINE CULTURE/ COLONY COUNT CPT-4: 99477 03/17/2018 URINALYSIS NONAUTO W/O SCOPE CPT-4: 27801 03/17/2018 FLU VACC PRSV FREE INC ANTIG 65 AND OLDER CPT-4: 46456 12/17/2017 PNEUMOCOCCAL VACC 23 RANDALL IM CPT-4: 05274 12/17/2017 ADMIN INFLUENZA VIRUS VAC CPT-4: G0008 12/17/2017 ADMIN PNEUMOCOCCAL VACCINE CPT-4: G0009 12/17/2017 PPPS, subseq visit CPT-4: G0439 09/17/2017 THER/PROPH/DIAG INJ SC/IM CPT-4: 46928 08/26/2017 KETOROLAC TROMETHAMINE INJ CPT-4: J1885 08/26/2017 PROMETHAZINE HCL INJECTION CPT-4: J2550 08/26/2017 URINALYSIS NONAUTO W/O SCOPE CPT-4: 17340 07/19/2017 URINE CULTURE/ COLONY COUNT CPT-4: 89520 07/19/2017 CEFTRIAXONE SODIUM INJECTION CPT-4: J0696 07/19/2017 THER/PROPH/DIAG INJ SC/IM CPT-4: 25200 07/19/2017 THER/PROPH/DIAG INJ SC/IM CPT-4: 13572 07/19/2017 TRIAMCINOLONE ACET INJ NOS CPT-4: J3301 07/19/2017 PRESCRIP TRANSMIT VIA ERX SY CPT-4: G8553 05/07/2017 PRESCRIP TRANSMIT VIA ERX SY CPT-4: G8553 02/22/2017 PRESCRIP TRANSMIT VIA ERX SY CPT-4: G8553 01/23/2017 FLU VACC PRSV FREE INC ANTIG 65 AND OLDER CPT-4: 46239 12/20/2016 PNEUMOCOCCAL VACC 13 RANDALL IM CPT-4: 60260 12/20/2016 ADMIN INFLUENZA VIRUS VAC CPT-4: G0008 12/20/2016 ADMIN PNEUMOCOCCAL VACCINE CPT-4: G0009 12/20/2016 URINALYSIS NONAUTO W/O SCOPE CPT-4: 46784 10/08/2016 URINE CULTURE/ COLONY COUNT CPT-4: 79112 10/08/2016 PRESCRIP TRANSMIT VIA ERX SY CPT-4: G8553 10/08/2016 PRESCRIP TRANSMIT VIA ERX SY CPT-4: G8553 09/19/2016 PRESCRIP TRANSMIT VIA ERX SY CPT-4: G8553 08/20/2016 PRESCRIP TRANSMIT VIA ERX SY CPT-4: G8553 02/29/2016 KETOROLAC TROMETHAMINE INJ CPT-4: J1885 02/02/2016 THER/PROPH/DIAG INJ SC/IM CPT-4: 70369 02/02/2016 PROMETHAZINE HCL INJECTION CPT-4: J2550 02/02/2016 PRESCRIP TRANSMIT VIA ERX SY CPT-4: G8553 02/02/2016 FLU VACC PRSV FREE INC ANTIG 65 AND OLDER CPT-4: 46357 01/05/2016 PPPS, subseq visit CPT-4: G0439 01/05/2016 ADMIN INFLUENZA VIRUS VAC CPT-4: G0008 01/05/2016 URINE CULTURE/ COLONY COUNT CPT-4: 13005 12/05/2015 URINALYSIS NONAUTO W/O SCOPE CPT-4: 28756 12/05/2015 PRESCRIP TRANSMIT VIA ERX SY CPT-4: G8553 12/05/2015 PRESCRIP TRANSMIT VIA ERX SY CPT-4: G8553 10/26/2015 URINALYSIS NONAUTO W/O SCOPE CPT-4: 13167 10/05/2015 URINE CULTURE/ COLONY COUNT CPT-4: 02629 10/05/2015 PRESCRIP TRANSMIT VIA ERX SY CPT-4: G8553 10/05/2015 MD SERVICE REQUIRED FOR PMD CPT-4: G0372 09/15/2015 PRESCRIP TRANSMIT VIA ERX SY CPT-4: G8553 09/15/2015 SPECIAL REPORTS OR FORMS CPT-4: 68020 08/25/2015 PRESCRIP TRANSMIT VIA ERX SY CPT-4: G8553 07/05/2015 URINALYSIS NONAUTO W/O SCOPE CPT-4: 68291 03/30/2015 ASSAY, GLUCOSE, BLOOD QUANT CPT-4: 38754 03/30/2015 URINE CULTURE/ COLONY COUNT CPT-4: 48268 03/30/2015 PRESCRIP TRANSMIT VIA ERX SY CPT-4: G8553 03/30/2015 PRESCRIP TRANSMIT VIA ERX SY CPT-4: G8553 02/03/2015 FLU VACC PRSV FREE INC ANTIG 65 AND OLDER CPT-4: 61556 12/29/2014 ADMIN INFLUENZA VIRUS VAC CPT-4: G0008 12/29/2014 PRESCRIP TRANSMIT VIA ERX SY CPT-4: G8553 12/29/2014 PRESCRIP TRANSMIT VIA ERX SY CPT-4: G8553 09/02/2014 PROTEIN/CREAT URINE WITH RATIO CPT-4: 99725|[id number] 5 MICROALBUMIN QUANTITATIVE CPT-4: 28816 04/01/2014 PRESCRIP TRANSMIT VIA ERX SY CPT-4: G8553 03/16/2014 PRESCRIP TRANSMIT VIA ERX SY CPT-4: G8553 03/09/2014 THER/PROPH/DIAG INJ SC/IM CPT-4: 32968 03/01/2014 TRIAMCINOLONE ACET INJ NOS CPT-4: J3301 03/01/2014 PRESCRIP TRANSMIT VIA ERX SY CPT-4: G8553 02/09/2014 URINE CULTURE/ COLONY COUNT CPT-4: 05251 10/30/2013 URINALYSIS NONAUTO W/O SCOPE CPT-4: 10269 10/21/2013 URINE CULTURE/ COLONY COUNT CPT-4: 55307 10/21/2013 DESTRUCT PREMALG LESION (Cryosurgery) CPT-4: 99657 PRESCRIP TRANSMIT VIA ERX SY CPT-4: G8553 10/05/2013 URINALYSIS NONAUTO W/O SCOPE CPT-4: 07956 08/04/2013 URINE CULTURE/ COLONY COUNT CPT-4: 89129 08/04/2013 PRESCRIP TRANSMIT VIA ERX SY CPT-4: G8553 08/04/2013 THER/PROPH/DIAG INJ SC/IM CPT-4: 91885 07/13/2013 TRIAMCINOLONE ACET INJ NOS CPT-4: J3301 07/13/2013 PRESCRIP TRANSMIT VIA ERX SY CPT-4: G8553 05/27/2013 URINALYSIS NONAUTO W/O SCOPE CPT-4: 50128 05/25/2013 URINE CULTURE/ COLONY COUNT CPT-4: 35191 05/25/2013 THER/PROPH/DIAG INJ SC/IM CPT-4: 99435 05/04/2013 VITAMIN B12 INJECTION CPT-4: J3420 05/04/2013 THER/PROPH/DIAG INJ SC/IM CPT-4: 47357 04/17/2013 VITAMIN B12 INJECTION CPT-4: J3420 04/17/2013 THER/PROPH/DIAG INJ SC/IM CPT-4: 40618 04/17/2013 METHYLPREDNISOLONE 40 MG INJ CPT-4: J1030 04/17/2013 TRIAMCINOLONE ACET INJ NOS CPT-4: J3301 04/17/2013 URINALYSIS NONAUTO W/O SCOPE CPT-4: 44359 04/06/2013 URINE CULTURE/ COLONY COUNT CPT-4: 60297 04/06/2013 PRESCRIP TRANSMIT VIA ERX SY CPT-4: G8553 04/06/2013 KETOROLAC TROMETHAMINE INJ CPT-4: J1885 06/25/2012 PROMETHAZINE HCL INJECTION CPT-4: J2550 06/25/2012 THER/PROPH/DIAG INJ SC/IM CPT-4: 55512 06/25/2012 THER/PROPH/DIAG INJ SC/IM CPT-4: 60784 06/24/2012 METHYLPREDNISOLONE 40 MG INJ CPT-4: J1030 06/24/2012 TRIAMCINOLONE ACET INJ NOS CPT-4: J3301 06/24/2012 URINE CULTURE/ COLONY COUNT CPT-4: 54787 06/24/2012 THER/PROPH/DIAG INJ SC/IM CPT-4: 85091 05/20/2012 KETOROLAC TROMETHAMINE INJ CPT-4: J1885 05/20/2012 THER/PROPH/DIAG INJ SC/IM CPT-4: 88974 05/20/2012 PROMETHAZINE HCL INJECTION CPT-4: J2550 05/20/2012 DRAIN/INJECT JOINT/BURSA CPT-4: 11276 02/13/2012 METHYLPREDNISOLONE 40 MG INJ CPT-4: J1030 02/13/2012 TRIAMCINOLONE ACET INJ NOS CPT-4: J3301 02/13/2012 THER/PROPH/DIAG INJ SC/IM CPT-4: 59408 11/14/2011 METHYLPREDNISOLONE 40 MG INJ CPT-4: J1030 11/14/2011 TRIAMCINOLONE ACET INJ NOS CPT-4: J3301 11/14/2011 THER/PROPH/DIAG INJ SC/IM CPT-4: 38238 09/12/2011 KETOROLAC TROMETHAMINE INJ CPT-4: J1885 09/12/2011 THER/PROPH/DIAG INJ SC/IM CPT-4: 51883 08/09/2011 METHYLPREDNISOLONE 40 MG INJ CPT-4: J1030 08/09/2011 TRIAMCINOLONE ACET INJ NOS CPT-4: J3301 08/09/2011 URINE CULTURE/ COLONY COUNT CPT-4: 64543 07/03/2011 URINE CULTURE/ COLONY COUNT CPT-4: 64026 06/04/2011 THER/PROPH/DIAG INJ SC/IM CPT-4: 82068 05/03/2011 METHYLPREDNISOLONE 40 MG INJ CPT-4: J1030 05/03/2011 TRIAMCINOLONE ACET INJ NOS CPT-4: J3301 05/03/2011 URINALYSIS NONAUTO W/O SCOPE CPT-4: 86618 01/24/2011 URINE CULTURE/ COLONY COUNT CPT-4: 07210 01/24/2011 FLUZONE, 5ML (Medicare) CPT-4: Q2038 01/02/2011 ADMIN INFLUENZA VIRUS VAC CPT-4: G0008 01/02/2011 ASSAY, GLUCOSE, BLOOD QUANT CPT-4: 30724 12/07/2010 URINE CULTURE/ COLONY COUNT CPT-4: 85943 11/02/2010 THER/PROPH/DIAG INJ SC/IM CPT-4: 66351 10/18/2010 METHYLPREDNISOLONE 40 MG INJ CPT-4: J1030 10/18/2010 TRIAMCINOLONE ACET INJ NOS CPT-4: J3301 10/18/2010 TRIAMCINOLONE ACET INJ NOS CPT-4: J3301 05/11/2010 METHYLPREDNISOLONE 40 MG INJ CPT-4: J1030 05/11/2010 THER/PROPH/DIAG INJ SC/IM CPT-4: 77549 05/11/2010 TRIAMCINOLONE ACET INJ NOS CPT-4: J3301 02/09/2010 METHYLPREDNISOLONE 40 MG INJ CPT-4: J1030 02/09/2010 THER/PROPH/DIAG INJ SC/IM CPT-4: 44314 02/09/2010 SERVICE REQUIRED FOR PMD CPT-4: G0372 02/09/2010 FLU VACCINE 3 YRS & > IM UP 64 CPT-4: 68745 0 PNEUMOCOCCAL VACC 23 RANDALL IM CPT-4: 60653 12/07/2009 ADMIN INFLUENZA VIRUS VAC CPT-4: G0008 12/07/2009 ADMIN PNEUMOCOCCAL VACCINE CPT-4: G0009 12/07/2009 TRIAMCINOLONE ACET INJ NOS CPT-4: J3301 05/26/2009 THER/PROPH/DIAG INJ SC/IM CPT-4: 13104 05/26/2009 METHYLPREDNISOLONE 80 MG INJ CPT-4: J1040 [...] 1: 114/72 Code: 8480-6 BMI: 37.8 Code: 58272-8 Heart Rate 1: 72 bpm Height: 5'3" [...] 1: 106/68 Code: 8480-6 BMI: 35.7 Code: 32391-6 Heart Rate 1: 72 bpm Height: 5'4" Respiratory Rate: 20 bpm SpO2: 98% Tempera ture: 36.7 (C) / 98.0 (F) Weight: 208 lbs 04/16/2018 Blood Pressure 1: 132/82 Code: 8480-6 BMI: 37.9 Code: 76055-7 Heart Rate 1: 72 bpm Height: 5'4" Respiratory Rate: 20 bpm SpO2: 96% Tempera ture: 37.1 (C) / 98.8 (F) Weight: 221 lbs 04/01/2018 Blood Pressure 1: 150/90 Code: 8480-6 Heart Rate 1: 72 bpm Respiratory Rate: 22 bpm SpO2: 95% Temperature: 36.4 (C) / 97.6 (F) We ight: 216 lbs 03/06/2018 Blood Pressure 1: 126/78 Code: 8480-6 BMI: 37.4 Code: 86764-0 Heart Rate 1: 68 bpm Height: 5'4" [...] ight: 222 lbs 12/25/2017 BMI: 37.8 Code: 61152-9 Heart Rate 1: 76 bpm Height: 5 '4" Respiratory Rate: 20 bpm SpO2: 96% Temperature: 37.3 (C) / 99.2 (F) Weight: 220 lbs 12/17/2017 Blood Pressure 1: 132/78 Code: 8480-6 BMI: 37.2 Code: 92612-0 Heart Rate 1: 88 bpm Height: 5'4" Respiratory Rate: 20 bpm SpO2: 96% Tempera ture: 37.3 (C) / 99.2 (F) Weight: 217 lbs 10/30/2017 Blood Pressure 1: 114/68 Code: 8480-6 BMI: 36.4 Code: 31893-2 Heart Rate 1: 72 bpm Height: 5'4" Respiratory Rate: 22 bpm SpO2: 96% Tempera ture: 36.8 (C) / 98.2 (F) Weight: 212 lbs 10/23/2017 Blood Pressure 1: 124/78 Code: 8480-6 Heart Rate 1: 72 bpm Respiratory Rate: 24 bpm SpO2: 94% Temperature: 36.6 (C) / 97.9 (F) We ight: 212 lbs 09/17/2017 Blood Pressure 1: 128/82 Code: 8480-6 BMI: 37.4 Code: 66529-9 Heart Rate 1: 72 bpm Height: 5'4" Respiratory Rate: 20 bpm SpO2: 96% Tempera ture: 37.0 (C) / 98.6 (F) Weight: 218 lbs 07/19/2017 Blood Pressure 1: 136/84 Code: 8480-6 BMI: 36.6 Code: 07210-5 Heart Rate 1: 88 bpm Height: 5'4" Respiratory Rate: 20 bpm SpO2: 97% Tempera ture: 36.7 (C) / 98.0 (F) Weight: 213 lbs 05/29/2017 Blood Pressure 1: 136/82 Code: 8480-6 BMI: 36.7 Code: 08229-4 Heart Rate 1: 72 bpm Height: 5'4" Respiratory Rate: 20 bpm SpO2: 97% Tempera ture: 36.9 (C) / 98.4 (F) Weight: 214 lbs 05/07/2017 Blood Pressure 1: 122/80 Code: 8480-6 BMI: 37.1 Code: 37897-8 Heart Rate 1: 80 bpm Height: 5'4" Respiratory Rate: 24 bpm SpO2: 96% Tempera ture: 36.1 (C) / 97.0 (F) Weight: 216 lbs 03/18/2017 BMI: 36.7 Code: 06885-5 Heart Rate 1: 80 bpm Height: 5 '4" Respiratory Rate: 22 bpm SpO2: 95% Temperature: 36.9 (C) / 98.4 (F) Weight: 214 lbs 02/27/2017 Blood Pressure 1: 146/94 Code: 8480-6 BMI: 36.6 Code: 25185-9 Heart Rate 1: 76 bpm Height: 5'4" Respiratory Rate: 22 bpm SpO2: 97% Tempera ture: 36.6 (C) / 97.9 (F) Weight: 213 lbs 02/22/2017 Blood Pressure 1: 126/90 Code: 8480-6 BMI: 36.4 Code: 85611-0 Heart Rate 1: 84 bpm Height: 5'4" Respiratory Rate: 22 bpm SpO2: 95% Tempera ture: 36.9 (C) / 98.4 (F) Weight: 212 lbs 01/23/2017 Blood Pressure 1: 146/82 Code: 8480-6 BMI: 37.6 Code: 34007-3 Heart Rate 1: 96 bpm Height: 5'4" Respiratory Rate: 20 bpm SpO2: 96% Tempera ture: 36.9 (C) / 98.4 (F) Weight: 219 lbs 12/20/2016 Blood Pressure 1: 126/70 Code: 8480-6 BMI: 37.2 Code: 90121-7 Heart Rate 1: 76 bpm Height: 5'4" Respiratory Rate: 22 bpm SpO2: 95% Tempera ture: 36.6 (C) / 97.8 (F) Weight: 217 lbs 10/08/2016 Blood Pressure 1: 128/82 Code: 8480-6 BMI: 36.9 Code: 01077-8 Heart Rate 1: 76 bpm Height: 5'4" Respiratory Rate: 20 bpm SpO2: 95% Tempera ture: 37.0 (C) / 98.6 (F) Weight: 215 lbs 09/19/2016 Blood Pressure 1: 144/78 Code: 8480-6 BMI: 37.8 Code: 66702-8 Heart Rate 1: 76 bpm Height: 5'4" Respiratory Rate: 22 bpm SpO2: 95% Tempera ture: 37.0 (C) / 98.6 (F) Weight: 220 lbs 08/20/2016 Blood Pressure 1: 140/86 Code: 8480-6 BMI: 37.4 Code: 18419-1 Heart Rate 1: 80 bpm Height: 5'4" Respiratory Rate: 20 bpm SpO2: 95% Tempera ture: 36.9 (C) / 98.4 (F) Weight: 218 lbs 06/19/2016 Blood Pressure 1: 124/78 Code: 8480-6 BMI: 37.8 Code: 78888-1 Heart Rate 1: 74 bpm Height: 5'4" Respiratory Rate: 24 bpm SpO2: 96% Tempera ture: 36.9 (C) / 98.4 (F) Weight: 220 lbs 06/04/2016 Blood Pressure 1: 124 Code: 8480-6 BMI: 38.8 Code: 98722-4 Heart Rate 1: 72 bpm Height: 5'4" Respiratory Rate: 24 bpm SpO2: 95% Tempera ture: 36.8 (C) / 98.2 (F) Weight: 226 lbs 05/02/2016 Blood Pressure 1: 136/90 Code: 8480-6 BMI: 37.6 Code: 58511-1 Heart Rate 1: 72 bpm Height: 5'4" Respiratory Rate: 24 bpm SpO2: 96% Tempera ture: 36.9 (C) / 98.4 (F) Weight: 219 lbs 04/03/2016 Blood Pressure 1: 126/78 Code: 8480-6 BMI: 38.1 Code: 61322-5 Heart Rate 1: 72 bpm Height: 5'4" Respiratory Rate: 22 bpm SpO2: 94% Tempera ture: 36.9 (C) / 98.4 (F) Weight: 222 lbs 02/29/2016 Blood Pressure 1: 132/78 Code: 8480-6 Heart Rate 1: 78 bpm Height: Respiratory Rate: 24 bpm SpO2: 95% Temperature: 36.4 (C) / 97.6 (F) We ight: 02/02/2016 Blood Pressure 1: 124/78 Code: 8480-6 BMI: 37.6 Code: 26100-9 Heart Rate 1: 76 bpm Height: 5'4" Respiratory Rate: 20 bpm SpO2: 95% Tempera ture: 36.8 (C) / 98.2 (F) Weight: 219 lbs 01/05/2016 Blood Pressure 1: 126/70 Code: 8480-6 BMI: 37.1 Code: 32917-6 Heart Rate 1: 76 bpm Height: 5'4" Respiratory Rate: 20 bpm Temperature: 36 .6 (C) / 97.8 (F) Weight: 216 lbs 12/05/2015 Blood Pressure 1: 126/72 Code: 8480-6 BMI: 36.9 Code: 40477-2 Heart Rate 1: 92 bpm Height: 5'4" Respiratory Rate: 20 bpm Temperature: 36 .7 (C) / 98.1 (F) Weight: 215 lbs 10/26/2015 Blood Pressure 1: 142/80 Code: 8480-6 BMI: 36.4 Code: 30544-7 Heart Rate 1: 82 bpm Height: 5'4" Respiratory Rate: 24 bpm SpO2: 92% Tempera ture: 35.9 (C) / 96.7 (F) Weight: 212 lbs 10/05/2015 Blood Pressure 1: 136/82 Code: 8480-6 Heart Rate 1: 80 bpm Respiratory Rate: 18 bpm SpO2: 98% Temperature: 35.7 (C) / 96.3 (F) We ight: 214 lbs 09/15/2015 Blood Pressure 1: 116/80 Code: 8480-6 BMI: 34.6 Code: 94803-0 Heart Rate 1: 76 bpm Height: 5'6" Respiratory Rate: 20 bpm Temperature: 36 .6 (C) / 97.9 (F) Weight: 211 lbs 08/24/2015 Blood Pressure 1: 124/80 Code: 8480-6 BMI: 34.1 Code: 26665-4 Heart Rate 1: 68 bpm Height: 5'6" Respiratory Rate: 20 bpm Temperature: 36 .8 (C) / 98.3 (F) Weight: 208 lbs 07/05/2015 Blood Pressure 1: 114/78 Code: 8480-6 BMI: 33.9 Code: 60496-4 Heart Rate 1: 80 bpm Height: 5'6" Respiratory Rate: 20 bpm Temperature: 36 .6 (C) / 97.9 (F) Weight: 207 lbs 06/06/2015 Blood Pressure 1: 122/78 Code: 8480-6 BMI: 34.1 Code: 75774-9 Heart Rate 1: 76 bpm Height: 5'6" Respiratory Rate: 24 bpm SpO2: 96% Tempera ture: 36.4 (C) / 97.6 (F) Weight: 208 lbs 05/23/2015 Blood Pressure 1: 124/78 Code: 8480-6 Heart Rate 1: 76 bpm Respiratory Rate: 24 bpm SpO2: 93% Temperature: 36.8 (C) / 98.2 (F) We ight: 212 lbs 05/05/2015 Blood Pressure 1: 136/80 Code: 8480-6 BMI: 35.4 Code: 78932-1 Heart Rate 1: 76 bpm Height: 5'6" Respiratory Rate: 28 bpm Temperature: 37 .0 (C) / 98.6 (F) Weight: 216 lbs 03/30/2015 Blood Pressure 1: 132/86 Code: 8480-6 BMI: 35.2 Code: 68276-8 Heart Rate 1: 84 bpm Height: 5'6" Respiratory Rate: 24 bpm Temperature: 36 .7 (C) / 98.0 (F) Weight: 215 lbs 02/03/2015 Blood Pressure 1: 122/74 Code: 8480-6 BMI: 35.7 Code: 52920-4 Heart Rate 1: 84 bpm Height: 5'6" Respiratory Rate: 20 bpm Temperature: 36 .9 (C) / 98.5 (F) Weight: 218 lbs 12/29/2014 Blood Pressure 1: 132/80 Code: 8480-6 BMI: 35.1 Code: 34758-4 Heart Rate 1: 80 bpm Height: 5'6" Respiratory Rate: 20 bpm Temperature: 36 .6 (C) / 97.8 (F) Weight: 214 lbs 09/02/2014 Blood Pressure 1: 128/92 Code: 8480-6 BMI: 34.7 Code: 88233-3 Heart Rate 1: 84 bpm Height: 5'6" Respiratory Rate: 26 bpm Temperature: 36 .8 (C) / 98.2 (F) Weight: 212 lbs 08/25/2014 Blood Pressure 1: 124/80 Code: 8480-6 BMI: 34.7 Code: 87174-5 Heart Rate 1: 78 bpm Height: 5'6" Respiratory Rate: 22 bpm SpO2: 97% Tempera ture: 36.6 (C) / 97.8 (F) Weight: 212 lbs 04/01/2014 Blood Pressure 1: 142/84 Code: 8480-6 BMI: 34.4 Code: 16133-0 Heart Rate 1: 74 bpm Height: 5'5" Respiratory Rate: 20 bpm Temperature: 36 .4 (C) / 97.6 (F) Weight: 207 lbs 03/16/2014 Blood Pressure 1: 142/90 Code: 8480-6 BMI: 34.6 Code: 67490-0 Heart Rate 1: 76 bpm Height: 5'5" Respiratory Rate: 24 bpm Temperature: 36 .5 (C) / 97.7 (F) Weight: 208 lbs 03/09/2014 Blood Pressure 1: 116/70 Code: 8480-6 BMI: 35.3 Code: 31844-3 Heart Rate 1: 72 bpm Height: 5'5" [...] 1: 128/86 Code: 8480-6 BMI: 34.3 Code: 66304-1 Heart Rate 1: 84 bpm Height: 5'5" Respiratory Rate: 20 bpm Temperature: 36 .7 (C) / 98.0 (F) Weight: 206 lbs 12/23/2013 Blood Pressure 1: 122/70 Code: 8480-6 BMI: 34.3 Code: 20381-5 Heart Rate 1: 68 bpm Height: 5'5" Respiratory Rate: 20 bpm Temperature: 36 .8 (C) / 98.2 (F) Weight: 206 lbs 10/05/2013 Blood Pressure 1: 118/76 Code: 8480-6 BMI: 34.1 Code: 82830-7 Heart Rate 1: 68 bpm Height: 5'5" Respiratory Rate: 20 bpm SpO2: 98% Tempera ture: 36.6 (C) / 97.9 (F) Weight: 205 lbs 08/04/2013 Blood Pressure 1: 126/82 Code: 8480-6 BMI: 33.3 Code: 52334-3 Heart Rate 1: 76 bpm Height: 5'5" Respiratory Rate: 20 bpm Temperature: 36 .8 (C) / 98.2 (F) Weight: 200 lbs 07/03/2013 Blood Pressure 1: 124/82 Code: 8480-6 BMI: 33.3 Code: 18033-3 Heart Rate 1: 72 bpm Height: 5'5" Respiratory Rate: 22 bpm Temperature: 36 .1 (C) / 97.0 (F) Weight: 200 lbs 05/27/2013 Blood Pressure 1: 126/82 Code: 8480-6 Heart Rate 1: 74 bpm Respiratory Rate: 20 bpm Temperature: 36.0 (C) / 96.8 (F) Weight: 199 lbs 04/06/2013 Blood Pressure 1: 118/80 Code: 8480-6 BMI: 35.2 Code: 11208-6 Heart Rate 1: 80 bpm Height: 5'4" Respiratory Rate: 20 bpm Temperature: 37 .4 (C) / 99.3 (F) Weight: 205 lbs 11/10/2012 Blood Pressure 1: 128/82 Code: 8480-6 Heart Rate 1: 84 bpm Respiratory Rate: 20 bpm Temperature: 36.7 (C) / 98.0 (F) Weight: 199 lbs 09/02/2012 Blood Pressure 1: 116/82 Code: 8480-6 BMI: 34.2 Code: 01120-4 Heart Rate 1: 88 bpm Height: 5'4" Respiratory Rate: 22 bpm Temperature: 36 .6 (C) / 97.8 (F) Weight: 199 lbs 08/04/2012 Blood Pressure 1: 128/74 Code: 8480-6 BMI: 34.0 Code: 42641-0 Heart Rate 1: 92 bpm Height: 5'4" Respiratory Rate: 20 bpm Temperature: 36 .4 (C) / 97.5 (F) Weight: 198 lbs 07/21/2012 Blood Pressure 1: 124/86 Code: 8480-6 Heart Rate 1: 116 bpm Respiratory Rate: 24 bpm Temperature: 36.8 (C) / 98.2 (F) 07/02/2012 Blood Pressure 1: 116/88 Code: 8480-6 BMI: 33.6 Code: 46099-3 Heart Rate 1: 76 bpm Height: 5'4" Respiratory Rate: 20 bpm Temperature: 36 .8 (C) / 98.3 (F) Weight: 196 lbs 06/24/2012 Blood Pressure 1: 124/80 Code: 8480-6 BMI: 34.3 Code: 38205-2 Heart Rate 1: 72 bpm Height: 5'4" SpO2: 96% Temperature: 36.3 (C) / 97.3 (F) Weight: 200 lbs 05/20/2012 Blood Pressure 1: 116/88 Code: 8480-6 BMI: 33.8 Code: 13163-2 Heart Rate 1: 80 bpm Height: 5'4" Respiratory Rate: 22 bpm Temperature: 36 .9 (C) / 98.4 (F) Weight: 197 lbs 05/08/2012 Blood Pressure 1: 128/86 Code: 8480-6 BMI: 33.8 Code: 85487-1 Heart Rate 1: 76 bpm Height: 5'4" Respiratory Rate: 26 bpm SpO2: 95% Tempera ture: 36.1 (C) / 97.0 (F) Weight: 197 lbs 04/22/2012 Blood Pressure 1: 106/64 Code: 8480-6 BMI: 33.8 Code: 08245-2 Heart Rate 1: 70 bpm Height: 5'4" Temperature: 36.1 (C) / 97.0 (F) Weight: 197 lbs 02/13/2012 Blood Pressure 1: 126/82 Code: 8480-6 BMI: 34.7 Code: 03426-5 Heart Rate 1: 64 bpm Height: 5'4" Respiratory Rate: 20 bpm Temperature: 36 .6 (C) / 97.8 (F) Weight: 202 lbs 01/28/2012 Blood Pressure 1: 116/80 Code: 8480-6 BMI: 34.7 Code: 27129-3 Heart Rate 1: 76 bpm Height: 5'4" Respiratory Rate: 20 bpm Temperature: 36 .8 (C) / 98.3 (F) Weight: 202 lbs 12/26/2011 Blood Pressure 1: 132/82 Code: 8480-6 BMI: 36.0 Code: 78755-5 Heart Rate 1: 68 bpm Height: 5'4" Respiratory Rate: 22 bpm Temperature: 36 .7 (C) / 98.0 (F) Weight: 210 lbs 11/14/2011 Blood Pressure 1: 124/80 Code: 8480-6 BMI: 36.4 Code: 78365-1 Heart Rate 1: 76 bpm Height: 5'4" Respiratory Rate: 20 bpm Temperature: 36 .8 (C) / 98.2 (F) Weight: 212 lbs 09/12/2011 Blood Pressure 1: 108/74 Code: 8480-6 BMI: 37.1 Code: 10039-3 Heart Rate 1: 72 bpm Height: 5'4" Respiratory Rate: 20 bpm Temperature: 37 .0 (C) / 98.6 (F) Weight: 216 lbs 08/15/2011 Blood Pressure 1: 122/80 Code: 8480-6 BMI: 36.9 Code: 62702-5 Heart Rate 1: 76 bpm Height: 5'4" Respiratory Rate: 20 bpm Temperature: 36 .2 (C) / 97.1 (F) Weight: 215 lbs 08/09/2011 Blood Pressure 1: 112/78 Code: 8480-6 BMI: 36.9 Code: 06595-5 Heart Rate 1: 68 bpm Height: 5'4" Respiratory Rate: 20 bpm Temperature: 36 .7 (C) / 98.0 (F) Weight: 215 lbs 07/03/2011 Blood Pressure 1: 140/94 Code: 8480-6 BMI: 36.2 Code: 36132-3 Heart Rate 1: 68 bpm Height: 5'4" Temperature: 36.0 (C) / 96.8 (F) Weight: 211 lbs 06/04/2011 Blood Pressure 1: 124/70 Code: 8480-6 BMI: 36.7 Code: 02226-5 Heart Rate 1: 68 bpm Height: 5'4" Respiratory Rate: 20 bpm Temperature: 36 .6 (C) / 97.9 (F) Weight: 214 lbs 05/03/2011 Blood Pressure 1: 130/76 Code: 8480-6 BMI: 36.4 Code: 58655-6 Heart Rate 1: 74 bpm Height: 5'5" Temperature: 36.2 (C) / 97.2 (F) Weight: 219 lbs 04/05/2011 Blood Pressure 1: 124/86 Code: 8480-6 BMI: 35.9 Code: 27089-7 Heart Rate 1: 76 bpm Height: 5'6" Respiratory Rate: 22 bpm Temperature: 36 .3 (C) / 97.3 (F) Weight: 219 lbs 03/08/2011 Blood Pressure 1: 112/78 Code: 8480-6 BMI: 35.1 Code: 16303-1 Heart Rate 1: 80 bpm Height: 5'6" Respiratory Rate: 26 bpm Temperature: 36 .9 (C) / 98.4 (F) Weight: 214 lbs 01/24/2011 Blood Pressure 1: 110/82 Code: 8480-6 BMI: 35.6 Code: 44503-8 Heart Rate 1: 80 bpm Height: 5'6" Temperature: 36.1 (C) / 97.0 (F) Weight: 217 lbs 01/02/2011 Blood Pressure 1: 106/72 Code: 8480-6 BMI: 35.6 Code: 34090-2 Heart Rate 1: 76 bpm Height: 5'6" [...] 1: 120/74 Code: 8480-6 BMI: 35.9 Code: 23496-3 Heart Rate 1: 72 bpm Height: 5'5" Temperature: 36.3 (C) / 97.4 (F) Weight: 216 lbs 09/19/2010 Blood Pressure 1: 124/80 Code: 8480-6 BMI: 35.4 Code: 92839-6 Heart Rate 1: 76 bpm Height: 5'5" [...] 1: 122/78 Code: 8480-6 BMI: 37.4 Code: 46483-6 Heart Rate 1: 84 bpm Height: 5'5" [...] 12/17/2017 follow up 10/30/2017 follow up 10/23/2017 [facility] fwup from [facility] Annual Checkup 09/17/2017 Wellness [...] up 10/26/2015 ER visit from at [facility] for COPD Exacerbation follow up 10/05/2015 [...] up 10/18/[address] Medrano last w [facility], having increased allergy symptoms. Would like steroid [...] month f/u follow up 12/07/2009 from [facility], done with PT--finished about 2wks ago [...] R06.1] Diagnosis: COUGH[ICD10: R05] Belia REID DO [facility] CPT-4: 65640 05/06/2019 ([id number]) OFFICE/OUTPATIENT VISIT EST Diagnosis: Stridor[ICD10: R06.1] Diagnosis: Muscle, jerky movements (uncontrolled)[ICD10: G25.5] Belia REID Bay[facility] CPT-4: 64943 04/29/2019 ([id number]) OFFICE/OUTPATIENT VISIT EST Diagnosis: Upper respiratory infection[ICD10: J06.9] Diagnosis: Flank pain[ICD10: R10.9] Diagnosis: Weight gain[ICD10: R63.5] Pattie AMBRIZ [place] [facility] CPT-4: 12970 04/16/2019 ([id number]) OFFICE/OUTPATIENT VISIT EST Diagnosis: Generalized pruritus[ICD10: L29.9] Belia REID Baydin [facility] CPT-4: 84184 04/08/2019 ([id number]) OFFICE/OUTPATIENT VISIT EST Diagnosis: Acute bursitis of left shoulder[ICD10: M75.52] Diagnosis: Cervicalgia[ICD10: M54.2] Diagnosis: Chest wall pain[ICD10: R07.89] Belia SMITH [employer] CPT-4: 66681 01/22/2019 ([id number]) OFFICE/OUTPATIENT VISIT EST Diagnosis: Abdominal pain[ICD10: R10.9] Diagnosis: Pyelonephritis[ICD10: N12] Pattie DOMINGUEZ [employer] CPT-4: 53879 01/07/2019 ([id number]) OFFICE/OUTPATIENT VISIT EST Diagnosis: Low back pain[ICD10: M54.5] Diagnosis: Left lumbar radiculopathy[ICD10: M54.16] Diagnosis: Left flank pain[ICD10: R10.9] Diagnosis: Left lower quadrant pain[ICD10: R10.32] Diagnosis: FLU VACCINE[ICD10: Z23] Belia FREDERICK [employer] CPT-4: 65101 12/24/2018 ([id number]) OFFICE/OUTPATIENT VISIT EST Diagnosis: Migraine, unspecified, not intractable, without status migrainosus[ICD10: G43.909] Diagnosis: Fibromyalgia[ICD10: M79.7] Belia DOMINGUEZ [facility] CPT-4: 73180 11/20/2018 ([id number]) OFFICE/OUTPATIENT VISIT EST Diagnosis: Migraine, unspecified, intractable, without status migrainosus[ICD10: G43.919] Diagnosis: Acute sinusitis, unspecified[ICD10: J01.90] Pattie REID DO [facility] CPT-4: 24095 11/04/2018 ([id number]) OFFICE/OUTPATIENT VISIT EST Diagnosis: Pain in left wrist[ICD10: M25.532] Diagnosis: Other dorsalgia[ICD10: M54.89] Pattie REID DO [facility] CPT-4: 67688 09/08/2018 ([id number]) OFFICE/OUTPATIENT VISIT EST Diagnosis: Acute stress reaction[ICD10: F43.0] Diagnosis: Pruritus, unspecified[ICD10: L29.9] 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, 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] Belia REID [facility] CPT-4: 71291 08/20/2018 ([id number]) OFFICE/OUTPATIENT VISIT EST Diagnosis: Hypotension due to drugs[ICD10: I95.2] Diagnosis: Paroxysmal atrial fibrillation[ICD10: I48.0] Diagnosis: Localized edema[ICD10: R60.0] Belia REID DO [facility] CPT-4: 59308 06/19/2018 ([id number]) OFFICE/OUTPATIENT VISIT EST Diagnosis: Generalized hyperhidrosis[ICD10: R61] Diagnosis: Essential (primary) hypertension[ICD10: I10] Diagnosis: Supraventricular tachycardia[ICD10: I47.1] Belia REID DO [facility] CPT-4: 74982 06/09/2018 ([id number]) OFFICE/OUTPATIENT VISIT EST Diagnosis: Stridor[ICD10: R06.1] Diagnosis: Dependence on supplemental oxygen[ICD10: Z99.81] Diagnosis: Weakness[ICD10: R53.1] Diagnosis: Supraventricular tachycardia[ICD10: I47.1] Belia REID DO [facility] CPT-4: 12357 05/21/2018 ([id number]) OFFICE/OUTPATIENT VISIT EST Diagnosis: Cervical disc disorder with radiculopathy, unspecified cervical region[ICD10: M50.10] Belia RIED DO [facility] CPT-4: 01678 04/16/2018 ([id number]) OFFICE/OUTPATIENT VISIT EST Diagnosis: Migraine, unspecified, intractable, without status migrainosus[ICD10: G43.919] Diagnosis: Fibromyalgia[ICD10: M79.7] Pattie DOMINGUEZ [facility] CPT-4: 19688 04/01/2018 ([id number]) NURSE/OUTPATIENT VISIT EST Diagnosis: Hematuria, unspecified[ICD10: R31.9] Diagnosis: Dysuria[ICD10: R30.0] Belia REID Baydin [facility] CPT-4: 40884 03/17/2018 ([id number]) OFFICE/OUTPATIENT VISIT EST Diagnosis: Erythema intertrigo[ICD10: L30.4] Diagnosis: Chronic obstructive pulmonary disease with (acute) exacerbation[ICD10: J44.1] Diagnosis: Type 2 diabetes mellitus with hyperglycemia[ICD10: E11.65] Belia REID [place]din [facility] CPT-4: 81716 03/06/2018 ([id number]) OFFICE/OUTPATIENT VISIT EST Diagnosis: Cervicalgia[ICD10: M54.2] Pattie AMBRIZ [place] [facility] CPT-4: 01484 02/05/2018 ([id number]) OFFICE/OUTPATIENT VISIT EST Diagnosis: Candidiasis of skin and nail[ICD10: B37.2] Diagnosis: Cervicalgia[ICD10: M54.2] Pattie AMBRIZ [place] [facility] CPT-4: 67741 01/20/2018 ([id number]) OFFICE/OUTPATIENT VISIT EST Diagnosis: Pain in thoracic spine[ICD10: M54.6] Diagnosis: Radiculopathy, thoracic region[ICD10: M54.14] Belia REID Baydin [facility] CPT-4: 04966 12/25/2017 ([id number]) OFFICE/OUTPATIENT VISIT EST Diagnosis: Pain in thoracic spine[ICD10: M54.6] Diagnosis: Other muscle spasm[ICD10: M62.838] Diagnosis: FLU VACCINE[ICD10: Z23] Diagnosis: PNEUMOCOCCAL VACCINE[ICD10: Z23] Belia REID DO [facility] CPT-4: 38595 12/17/2017 ([id number]) OFFICE/OUTPATIENT VISIT EST Diagnosis: Chronic obstructive pulmonary disease with (acute) exacerbation[ICD10: J44.1] Belia RIED DO [facility] CPT- 4: 66383 10/30/2017 ([id number]) OFFICE/OUTPATIENT VISIT EST Diagnosis: Chronic obstructive pulmonary disease with acute lower respiratory infection[ICD10: J44.0] Diagnosis: Mild intermittent asthma with (acute) exacerbation[ICD10: J45.21] Belia REID DO [facility] CPT-4: 28084 10/23/2017 ([id number]) NURSE/OUTPATIENT VISIT EST Diagnosis: Migraine, unspecified, not intractable, without status migrainosus[ICD10: G43.909] Belia REID [facility] CPT - 4: 43246 08/26/2017 ([id number]) OFFICE/OUTPATIENT VISIT EST Diagnosis: Urinary tract infection, site not specified[ICD10: N39.0] Diagnosis: Encounter for screening for osteoporosis[ICD10: Z13.820] Diagnosis: Encounter for screening mammogram for malignant neoplasm of breast[ICD10: Z12.31] Diagnosis: Acute bronchitis, unspecified[ICD10: J20.9] Pattie REID DO [facility] CPT-4: 32397 07/19/2017 ([id number]) OFFICE/OUTPATIENT VISIT EST Diagnosis: Rash and other nonspecific skin eruption[ICD10: R21] Pattie REID DO [facility] CPT-4: 10711 05/29/2017 ([id number]) OFFICE/OUTPATIENT VISIT EST Diagnosis: Diarrhea, unspecified[ICD10: R19.7] Diagnosis: Tinea corporis[ICD10: B35.4] Diagnosis: Tinea cruris[ICD10: B35.6] Diagnosis: Migraine, unspecified, not intractable, without status migrainosus[ICD10: G43.909] Belia REID DO [facility] CPT - 4: 43825 05/07/2017 ([id number]) OFFICE/OUTPATIENT VISIT EST Diagnosis: Stridor[ICD10: R06.1] Diagnosis: Chronic obstructive pulmonary disease with (acute) exacerbation[ICD10: J44.1] Belia REID DO [facility] CPT- 4: 13102 03/18/2017 ([id number]) OFFICE/OUTPATIENT VISIT EST Diagnosis: Type 2 diabetes mellitus with hyperglycemia[ICD10: E11.65] Belia REID DO [facility] CPT-4: 26756 02/27/2017 OFFICE/OUTPATIENT VISIT EST Diagnosis: Type 2 diabetes mellitus with hyperglycemia[ICD10: E11.65] Pattie REID [place] [facility] CPT-4: 96581 02/22/2017 ([id number]) OFFICE/OUTPATIENT VISIT EST Diagnosis: Urinary tract infection, site not specified[ICD10: N39.0] Diagnosis: Pneumonia, unspecified organism[ICD10: J18.9] Diagnosis: Type 2 diabetes mellitus with hyperglycemia[ICD10: E11.65] Belia REID [facility] CPT-4: 79129 01/23/2017 ([id number]) OFFICE/OUTPATIENT VISIT EST Diagnosis: Type 2 diabetes mellitus with hyperglycemia[ICD10: E11.65] Diagnosis: Localized edema[ICD10: R60.0] Diagnosis: PNEUMOCOCCAL VACCINE[ICD10: Z23] Diagnosis: FLU VACCINE[ICD10: Z23] Belia FREDERICK [facility] CPT-4: 72777 12/20/2016 OFFICE/OUTPATIENT VISIT EST Diagnosis: Pain in thoracic spine[ICD10: M54.6] Diagnosis: Low back pain[ICD10: M54.5] Diagnosis: Cervicalgia[ICD10: M54.2] Diagnosis: Cough[ICD10: R05] Celeste Ferreira BELIA REID [place] [facility] CPT-4: 64381 10/08/2016 ([id number]) OFFICE/OUTPATIENT VISIT EST Diagnosis: Primary insomnia[ICD10: F51.01] Diagnosis: Migraine, unspecified, not intractable, without status migrainosus[ICD10: G43.909] Diagnosis: Type 2 diabetes mellitus with hyperglycemia[ICD10: E11.65] Belia REID DO [facility] CPT-4: 82837 09/19/2016 ([id number]) OFFICE/OUTPATIENT VISIT EST Diagnosis: Migraine, unspecified, not intractable, without status migrainosus[ICD10: G43.909] Diagnosis: Generalized abdominal pain[ICD10: R10.84] Diagnosis: Cough[ICD10: R05] Belia REID DO [facility] CPT-4: 38183 08/20/2016 ([id number]) OFFICE/OUTPATIENT VISIT EST Diagnosis: Chronic obstructive pulmonary disease, unspecified[ICD10: J44.9] Diagnosis: Stridor[ICD10: R06.1] Belia REID DO [facility] CPT-4: 40276 06/19/2016 ([id number]) OFFICE/OUTPATIENT VISIT EST Diagnosis: Chronic obstructive pulmonary disease, unspecified[ICD10: J44.9] Diagnosis: Personal history of urinary (tract) infections[ICD10: Z87.440] Belia REID DO [facility] CPT-4: 97700 06/04/2016 ([id number]) OFFICE/OUTPATIENT VISIT EST Diagnosis: Stridor[ICD10: R06.1] Diagnosis: Chronic obstructive pulmonary disease with acute lower respiratory infection[ICD10: J44.0] Diagnosis: Other specified diseases of intestine[ICD10: K63.89] Diagnosis: Cystitis, unspecified without hematuria[ICD10: N30.90] Belia REID DO [facility] CPT-4: 50278 05/02/2016 ([id number]) OFFICE/OUTPATIENT VISIT EST Diagnosis: Fibromyalgia[ICD10: M79.7] Diagnosis: Urinary tract infection, site not specified[ICD10: N39.0] Belia REID DO [facility] CPT-4: 58708 04/03/2016 ([id number]) OFFICE/OUTPATIENT VISIT EST Diagnosis: Unspecified asthma, uncomplicated[ICD10: J45.909] Diagnosis: Cough[ICD10: R05] Lidia CORNELLLINE Yuridia REID Baydin [facility] T-4: 70438 02/29/2016 ([id number]) OFFICE/OUTPATIENT VISIT EST Diagnosis: Migraine, unspecified, intractable, without status migrainosus[ICD10: G43.919] Diagnosis: Urinary tract infection, site not specified[ICD10: N39.0] Belia TomlinsonMayda ANUSHKA Baydin [facility] CPT-4: 50545 02/02/2016 ([id number]) OFFICE/OUTPATIENT VISIT EST Diagnosis: Urinary tract infection, site not specified[ICD10: N39.0] Diagnosis: Unspecified abdominal pain[ICD10: R10.9] Diagnosis: Pain in thoracic spine[ICD10: M54.6] Diagnosis: Type 2 diabetes mellitus with diabetic neuropathic arthropathy[ICD10: E11.610] Belia HSUQUELINE BushraMayda ANUSHKA Baydin [facility] CPT-4: 28058 12/05/2015 ([id number]) OFFICE/OUTPATIENT VISIT EST Diagnosis: Chronic obstructive pulmonary disease with (acute) exacerbation[ICD10: J44.1] Diagnosis: Migraine, unspecified, not intractable, without status migrainosus[ICD10: G43.909] Lidia HSUQUELINE BushraMayda ANUSHKA Baydin [facility] CPT -4: 82184 10/26/2015 ([id number]) OFFICE/OUTPATIENT VISIT EST Diagnosis: Hematuria, unspecified[ICD10: R31.9] Diagnosis: Urinary tract infection, site not specified[ICD10: N39.0] Lidia HSUQUELINE BushraMayda ANUSHKA Baydin [facility] CPT-4: 62046 10/05/2015 OFFICE/OUTPATIENT VISIT EST Diagnosis: Chronic obstructive pulmonary disease, unspecified[ICD10: J44.9] Diagnosis: Muscle weakness (generalized)[ICD10: M62.81] Diagnosis: Polyneuropathy, unspecified[ICD10: G62.9] Diagnosis: Other intervertebral disc degeneration, 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] Diagnosis: Fibromyalgia[ICD10: M79.7] Beliaclayton HSUQUELINE Yuridia DAILEYER Baydin [facility] CPT-4: 37319 09/15/2015 ([id number]) OFFICE/OUTPATIENT VISIT EST Diagnosis: Disorientation, unspecified[ICD10: R41.0] Diagnosis: Headache[ICD10: R51] Diagnosis: Paresthesia of skin[ICD10: R20.2] Lidia REID DO [facility] CPT-4: 12579 08/24/2015 ([id number]) OFFICE/OUTPATIENT VISIT EST Diagnosis: Type 2 diabetes mellitus with hyperglycemia[ICD10: E11.65] Diagnosis: Chronic obstructive pulmonary disease with acute lower respiratory infection[ICD10: J44.0] Belia REID DO [facility] CPT-4: 98842 07/05/2015 ([id number]) OFFICE/OUTPATIENT VISIT EST Diagnosis: Mild intermittent asthma with (acute) exacerbation[ICD10: J45.21] Diagnosis: Chronic obstructive pulmonary disease, unspecified[ICD10: J44.9] Belia REID [facility] CPT-4: 26678 06/06/2015 ([id number]) OFFICE/OUTPATIENT VISIT EST Diagnosis: Chronic obstructive pulmonary disease with (acute) exacerbation[ICD10: J44.1] Lidia REID [facility] CPT- 4: 17806 05/23/2015 ([id number]) OFFICE/OUTPATIENT VISIT EST Diagnosis: Type 2 diabetes mellitus with hyperglycemia[ICD10: E11.65] Diagnosis: Functional dyspepsia[ICD10: K30] Belia REID DO [facility] CPT-4: 16481 05/05/2015 ([id number]) OFFICE/OUTPATIENT VISIT EST Diagnosis: Type 2 diabetes mellitus with hyperglycemia[ICD10: E11.65] Diagnosis: Glycosuria[ICD10: R81] Diagnosis: Urinary tract infection, site not specified[ICD10: N39.0] Belia REID DO [facility] CPT-4: 24150 03/30/2015 ([id number]) OFFICE/OUTPATIENT VISIT EST Diagnosis: Generalized abdominal pain[ICD10: R10.84] Diagnosis: Diarrhea, unspecified[ICD10: R19.7] Diagnosis: Urinary tract infection, site not specified[ICD10: N39.0] Diagnosis: Gastro-esophageal reflux disease without esophagitis[ICD10: K21.9] Belia REID [facility] CPT-4: 30238 02/03/2015 ([id number]) OFFICE/OUTPATIENT VISIT EST Diagnosis: Other specified noninflammatory disorders of vagina[ICD10: N89.8] Diagnosis: Follicular disorder, unspecified[ICD10: L73.9] Diagnosis: Functional dyspepsia[ICD10: K30] Diagnosis: FLU VACCINE[ICD10: Z23] Belia SMITH [facility] CPT-4: 91162 12/29/2014 ([id number]) OFFICE/OUTPATIENT VISIT EST 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] Diagnosis: RESTLESS LEGS SYNDROME[ICD9: 333.94] Diagnosis: MIGRAINE NOS/NOT INTRCBL[ICD9: 346.90] [facility] CPT-[facility]: 13341 09/02/2014 ([id number]) OFFICE/OUTPATIENT VISIT EST Diagnosis: Cervical radiculopathy[ICD9: 723.4] Diagnosis: Cervicalgia[ICD9: 723.1] Diagnosis: Degenerative disc disease, cervical[ICD9: 722.4] 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I[ICD9: 250.00] [facility]ia [facility] CPT-4: 47919 04/01/2014 OFFICE/OUTPATIENT VISIT EST Diagnosis: Reactive airway disease[ICD9: 493.90] Belia HSUPAUL LUBNA BushraMayda [facility] CPT-4: 18432 03/16/2014 ([id number]) OFFICE/OUTPATIENT VISIT EST Diagnosis: BRONCHITIS, ACUTE[ICD9: 466.0] Diagnosis: Reactive airway disease[ICD9: 493.90] Belia Reid MINAL LUBNA BushraMayda [facility] CPT-4: 05412 03/09/2014 OFFICE/OUTPATIENT VISIT EST Diagnosis: BRONCHITIS, ACUTE[ICD9: 466.0] Diagnosis: WHEEZING[ICD9: 786.07] Huong Osborne BELIA BushraMayda RALF Peguero [facility] CPT-4: 72827 03/03/2014 OFFICE/OUTPATIENT VISIT EST Diagnosis: BRONCHITIS, ACUTE[ICD9: 466.0] Diagnosis: WHEEZING[ICD9: 786.07] Huong Peguero [facility] CPT-4: 92435 03/01/2014 ([id number]) OFFICE/OUTPATIENT VISIT EST Diagnosis: GERD[ICD9: 530.81] Diagnosis: ARTHRALGIA-MULTIPLE SITES[ICD9: 719.49] Diagnosis: LUMB/LUMBOSAC DISC DEGEN[ICD9: 722.52] Diagnosis: - I - FIBROMYALGIA[ICD9: 729.1] Belia Humphriesbeckyannie CORNELLBELIA BushraMayda ANUSHKA [facility] CPT-4: 73400 02/09/2014 ([id number]) OFFICE/OUTPATIENT VISIT EST Diagnosis: Peptic ulcer disease[ICD9: 533.90] Diagnosis: RESTLESS LEGS SYNDROME[ICD9: 333.94] Diagnosis: Neuropathy[ICD9: 355.9] Belia Humphriesbeckyannie CORNELLBELIA BushraMayda LUIS FREDERICK [facility] CPT-4: 35998 12/23/2013 ([id number]) OFFICE/OUTPATIENT VISIT EST Diagnosis: URINARY TRACT INFECTION[ICD9: 599.0] Belia Humphriesbeckyannie CORNELL CLAYTON BushraMayda ANUSHKA [facility] CPT-4: 00594 10/30/2013 ([id number]) OFFICE/OUTPATIENT VISIT EST Diagnosis: Flank pain[ICD9: 789.00] Belia Humphriesbeckyannie CORNELLBELIA BushraMayda [facility] CPT-4: 36253 10/21/2013 ([id number]) OFFICE/OUTPATIENT VISIT EST Diagnosis: INFLAMED SEBORR KERATOS[ICD9: 702.11] Diagnosis: Brachioradial pruritus[ICD9: 698.9] Diagnosis: ASTHMA NOS[ICD9: 493.90] Belia Humphriesbeckyannie CORNELLBELIA BushraMayda KIESHA POOLE [facility] CPT-4: 82167 10/05/2013 ([id number]) OFFICE/OUTPATIENT VISIT EST Diagnosis: HYPERTENSION[ICD9: 401.9] Diagnosis: - I - FIBROMYALGIA[ICD9: 729.1] Diagnosis: DIZZINESS/VERTIGO[ICD9: 780.4] Diagnosis: MIGRAINE NOS/NOT INTRCBL[ICD9: 346.90] Diagnosis: Diabetic peripheral neuropathy[ICD9: 250.60] Diagnosis: Flank pain[ICD9: 789.00] Belia BRUNSON Yuridia POOLE [facility] CPT-4: 37051 08/04/2013 ([id number]) OFFICE/OUTPATIENT VISIT EST Diagnosis: ALLERGIC RHINITIS[ICD9: 477.9] Belia CORNELLLINE Bushra REID [facility] CPT-4: 98101 07/13/2013 OFFICE/OUTPATIENT VISIT EST Diagnosis: URINARY TRACT INFECTION[ICD9: 599.0] Huong De LunaFidepool REID [facility] CPT-4: 79942 07/03/2013 OFFICE/OUTPATIENT VISIT EST Diagnosis: HYPERTENSION[ICD9: 401.9] Diagnosis: URINARY TRACT INFECTION[ICD9: 599.0] Diagnosis: BACKACHE[ICD9: 724.5] Diagnosis: URINARY INCONTINENCE[ICD9: 788.30] Huong De LunaFidepool BASS MARIE Yuridia [facility] CPT-4: 71955 05/27/2013 ([id number]) OFFICE/OUTPATIENT VISIT EST Diagnosis: Flank pain[ICD9: 789.00] Belia Zacharybeckyannie CORNELLBELIA BushraMayda K[facility] CPT-4: 87574 05/25/2013 ([id number]) OFFICE/OUTPATIENT VISIT EST Diagnosis: B-COMPLEX DEFIC NEC[ICD9: 266.2] Belia Anushka CORNELLLINE BushraMayda [facility] CPT-4: 85124 05/04/2013 ([id number]) OFFICE/OUTPATIENT VISIT EST Diagnosis: ALLERGIC RHINITIS[ICD9: 477.9] Diagnosis: Vitamin B12 deficiency[ICD9: 266.2] Belia THOMPSON Yuridia [facility] CPT-4: 86993 04/17/2013 ([id number]) OFFICE/OUTPATIENT VISIT EST 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I[ICD9: 250.00] Diagnosis: URINARY TRACT INFECTION[ICD9: 599.0] Diagnosis: DIZZINESS/VERTIGO[ICD9: 780.4] Diagnosis: DIARRHEA[ICD9: 787.91] Belia BRUNSON BushraMayda [facility]ECKYReggie [facility] CPT-4: 83279 04/06/2013 ([id number]) OFFICE/OUTPATIENT VISIT EST Diagnosis: URINARY TRACT INFECTION[ICD9: 599.0] Diagnosis: URINARY RETENTION[ICD9: 788.20] Belia REID [facility] CPT-4: 97264 11/10/2012 ([id number]) OFFICE/OUTPATIENT VISIT EST Diagnosis: TACHYCARDIA[ICD9: 785.0] Diagnosis: SYNCOPE AND COLLAPSE[ICD9: 780.2] Diagnosis: CONSCIOUSNS ALTERAT NEC[ICD9: 780.09] Belia [facility] CPT-4: 69809 09/02/2012 OFFICE/OUTPATIENT VISIT EST Diagnosis: TACHYCARDIA[ICD9: 785.0] Diagnosis: SYNCOPE AND COLLAPSE[ICD9: 780.2] Belia REID [facility] CPT-4: 37522 08/04/2012 ([id number]) OFFICE/OUTPATIENT VISIT EST Diagnosis: Loss of consciousness[ICD9: 780.09] Diagnosis: Tachycardia[ICD9: 785.0] Diagnosis: MALAISE AND FATIGUE[ICD9: 780.79] Belia [facility] CPT-4: 65373 07/21/2012 ([id number]) OFFICE/OUTPATIENT VISIT EST Diagnosis: BRONCHITIS, ACUTE[ICD9: 466.0] Diagnosis: ASTHMA NOS[ICD9: 493.90] Belia POOLE [facility] CPT-4: 32052 07/02/2012 ([id number]) OFFICE/OUTPATIENT VISIT EST Diagnosis: CEPHALGIA[ICD9: 784.0] Belia Peguero [facility] CPT-4: 61163 06/25/2012 ([id number]) OFFICE/OUTPATIENT VISIT EST Diagnosis: GERD[ICD9: 530.81] Diagnosis: DIARRHEA[ICD9: 787.91] Diagnosis: URINARY TRACT INFECTION[ICD9: 599.0] Diagnosis: ASTHMA NOS[ICD9: 493.90] Diagnosis: ALLERGIC RHINITIS[ICD9: 477.9] Belia REID [facility] CPT-4: 02230 06/24/2012 ([id number]) OFFICE/OUTPATIENT VISIT EST Diagnosis: MIGRAINE NOS/NOT INTRCBL[ICD9: 346.90] Diagnosis: TREMOR NEC[ICD9: 333.1] Diagnosis: CHRONIC PAIN SYNDROME[ICD9: 338.4] Belia Orebeckyannie KRAIGKIMI MARIE BushraMayda ANUSHKA Baydin [facility] CPT-4: 68702 05/20/2012 ([id number]) OFFICE/OUTPATIENT VISIT EST Diagnosis: DIZZINESS/VERTIGO[ICD9: 780.4] Diagnosis: PALPITATIONS[ICD9: 785.1] Diagnosis: TREMOR NEC[ICD9: 333.1] Diagnosis: ANXIETY STATE NOS[ICD9: 300.00] Diagnosis: POSTTRAUMATIC STRESS DISORDER[ICD9: 309.81] Belia Humphriesnilson BRUNSON BushraMayda ANUSHKA Baydin [facility] CPT-4: 11456 05/08/2012 ([id number]) OFFICE/OUTPATIENT VISIT EST Diagnosis: MIGRAINE NOS/NOT INTRCBL[ICD9: 346.90] Diagnosis: FIBROMYALGIA[ICD9: 729.1] Diagnosis: SYNCOPE AND COLLAPSE[ICD9: 780.2] Diagnosis: Diabetic peripheral neuropathy[ICD9: 250.60] Belia Smithannie BELIA BushraMayda ANUSHKA Baydin [facility] CPT-4: 13936 04/22/2012 OFFICE/OUTPATIENT VISIT EST Diagnosis: ROTATOR CUFF DIS NEC[ICD9: 726.19] Diagnosis: JOINT PAIN-SHLDER[ICD9: 719.41] Diagnosis: DYSPEPSIA[ICD9: 536.8] Belia Zacharynilson BELIA BushraMayda RALF Peguero [employer] CPT-4: 57639 02/13/2012 ([id number]) OFFICE/OUTPATIENT VISIT EST Diagnosis: MIGRAINE NOS/NOT INTRCBL[ICD9: 346.90] Diagnosis: GERD[ICD9: 530.81] Diagnosis: DYSPEPSIA[ICD9: 536.8] Belia Zacharynilson BRUNSON BushraMayda RALF Peguero Baydin [facility] CPT-4: 89365 01/28/2012 OFFICE/OUTPATIENT VISIT EST Diagnosis: CEPHALGIA[ICD9: 784.0] Diagnosis: MIGRAINE NOS/NOT INTRCBL[ICD9: 346.90] Diagnosis: GERD[ICD9: 530.81] Diagnosis: INSOMNIA NOS[ICD9: 780.52] Belai BRUNSON BushraMayda RAND DAILEYER Baydin [facility] CPT-4: 78086 12/26/2011 ([id number]) OFFICE/OUTPATIENT VISIT EST Diagnosis: CEPHALGIA[ICD9: 784.0] Diagnosis: MIGRAINE NOS/NOT INTRCBL[ICD9: 346.90] Diagnosis: MALAISE AND FATIGUE[ICD9: 780.79] Diagnosis: FIBROMYALGIA[ICD9: 729.1] Diagnosis: ALLERGIC RHINITIS[ICD9: 477.9] Belia REID [facility] CPT-4: 54864 11/14/2011 ([id number]) OFFICE/OUTPATIENT VISIT EST Diagnosis: MALAISE AND FATIGUE[ICD9: 780.79] Diagnosis: MUSCLE WEAKNESS-GENERAL[ICD9: 728.87] Diagnosis: MIGRAINE NOS/NOT INTRCBL[ICD9: 346.90] Diagnosis: JOINT PAIN-SHLDER[ICD9: 719.41] Belia REID [facility] CPT-4: 49776 09/12/2011 ([id number]) OFFICE/OUTPATIENT VISIT EST Diagnosis: CONCUSSION[ICD9: 850.9] Diagnosis: Ataxia[ICD9: 781.3] Diagnosis: DIZZINESS/VERTIGO[ICD9: 780.4] Belia REID [facility] CPT-4: 90193 08/15/2011 ([id number]) OFFICE/OUTPATIENT VISIT EST Diagnosis: THROMBOPHLEBITIS[ICD9: 451.9] Diagnosis: Subacromial bursitis[ICD9: 726.19] Diagnosis: ALLERGIC RHINITIS[ICD9: 477.9] Diagnosis: Lipoma[ICD9: 214.9] Belia REID [facility] CPT-4: 44510 08/09/2011 ([id number]) OFFICE/OUTPATIENT VISIT EST Diagnosis: THROMBOPHLEBITIS[ICD9: 451.9] Diagnosis: Arm pain[ICD9: 729.5] Diagnosis: Clostridium difficile colitis[ICD9: 008.45] Diagnosis: URINARY TRACT INFECTION[ICD9: 599.0] Belia REID [facility] CPT-4: 52989 07/03/2011 ([id number]) OFFICE/OUTPATIENT VISIT EST Diagnosis: ARTHRALGIA-MULTIPLE SITES[ICD9: 719.49] Diagnosis: Muscle cramp[ICD9: 729.82] Diagnosis: INSOMNIA NOS[ICD9: 780.52] Belia CORNELLLINE Yuridia [facility] CPT-4: 11022 06/04/2011 OFFICE/OUTPATIENT VISIT EST Diagnosis: Headache[ICD9: 784.0] Diagnosis: Allergic rhinitis[ICD9: 477.9] [facility]: 04880 05/03/2011 OFFICE/OUTPATIENT VISIT EST Diagnosis: LUMB/LUMBOSAC DISC DEGEN[ICD9: 722.52] Diagnosis: MIGRAINE NOS/NOT INTRCBL[ICD9: 346.90] Diagnosis: CHRONIC PAIN SYNDROME[ICD9: 338.4] Diagnosis: RESTLESS LEGS SYNDROME[ICD9: 333.94] Belia Zacharybeckyannie HSUROBERTO ARNOLD Yuridia [facility] CPT-4: 59884 04/05/2011 OFFICE/OUTPATIENT VISIT EST Diagnosis: MIGRAINE NOS/NOT INTRCBL[ICD9: 346.90] Diagnosis: GERD[ICD9: 530.81] [facility] CPT-[facility]: 02021 03/08/2011 OFFICE/OUTPATIENT VISIT EST Diagnosis: URINARY TRACT INFECTION[ICD9: 599.0] Diagnosis: Vertigo[ICD9: 780.4] Diagnosis: GERD[ICD9: 530.81] Bel[facility] CPT-4: 07711 01/24/2011 OFFICE/OUTPATIENT VISIT EST Diagnosis: Hypotension[ICD9: 458.9] Diagnosis: Syncopal episodes[ICD9: 780.2] Diagnosis: MIGRAINE NOS/NOT INTRCBL[ICD9: 346.90] Diagnosis: MALAISE AND FATIGUE[ICD9: 780.79] Belia Zacharynilson Paredes Yuridia [facility] CPT-4: 69550 01/02/2011 OFFICE/OUTPATIENT VISIT EST Diagnosis: Tinea cruris[ICD9: 110.3] Diagnosis: Intertrigo[ICD9: 695.89] Diagnosis: MIGRAINE NOS/NOT INTRCBL[ICD9: 346.90] Belia COKER Yuridia [facility] CPT-4: 45792 12/07/2010 OFFICE/OUTPATIENT VISIT EST Diagnosis: PALPITATIONS[ICD9: 785.1] Diagnosis: ANXIETY STATE NOS[ICD9: 300.00] Belia Zacharybeckyannie BRUNSON [facility] CPT-4: 35915 11/16/2010 OFFICE/OUTPATIENT VISIT EST Diagnosis: URINARY TRACT INFECTION[ICD9: 599.0] Diagnosis: MIGRAINE NOS/NOT INTRCBL[ICD9: 346.90] Iraida Robert SONJA UELINE [facility] CPT-4: 76360 11/02/2010 OFFICE/OUTPATIENT VISIT EST Diagnosis: ALLERGIC RHINITIS[ICD9: 477.9] Diagnosis: ANXIETY STATE NOS[ICD9: 300.00] Belia Zacharynilson BELIA [facility] CPT-4: 54025 10/18/2010 OFFICE/OUTPATIENT VISIT EST Belia Anushka [facility] CPT- 4: 50475 09/19/2010 OFFICE/OUTPATIENT VISIT EST Belia Zacharybeckyannie [facility]UNSON [facility] CPT- 4: 58961 09/06/2010 ([id number]) OFFICE/OUTPATIENT VISIT EST Belia Anushka CASILLAS UEL[facility] CPT-4: 11878 08/10/2010 ([id number]) OFFICE/OUTPATIENT VISIT EST Belia Anushka CASILLAS UEL[facility] CPT-4: 69510 05/11/2010 ([id number]) OFFICE/OUTPATIENT VISIT, EST Belia HSU ROBERTOLINE [facility] CPT-4: 54411 04/06/2010 ([id number]) OFFICE/OUTPATIENT VISIT, EST Belia HSU QUELINE [facility] CPT-4: 69321 02/09/2010 ([id number]) OFFICE/OUTPATIENT VISIT, EST Belia HSU ROBERTOLINE [facility] CPT-4: 44056 01/05/2010 ([id number]) OFFICE/OUTPATIENT VISIT, EST Belia HSU ROBERTOLINE [facility] CPT-4: 51314 12/07/2009 ([id number]) OFFICE/OUTPATIENT VISIT, EST [facility]ton [facility] CPT-4: 72221 11/08/2009 ([id number]) OFFICE/OUTPATIENT VISIT, EST Belia REID DO [facility] CPT-4: 64819 10/24/2009 ([id number]) OFFICE/OUTPATIENT VISIT, EST Belia REID DO [facility] CPT-4: 73075 07/25/2009 ([id number]) OFFICE/OUTPATIENT VISIT, EST Belia REID DO [facility] CPT-4: 44671 05/26/2009 Plan of Care Planned Activity Notes Codes Status Date Visit Diagnosis Plan: Stridor Discussion: Add Trelagy 1 p daily Add Singulair May need to see new informatics developer ICD-9 : 786.1 ICD-10 : R06.1 05/06/2019 Visit Diagnosis Plan: COUGH Discussion: Check CT scan of chest ICD-9 : 786.2 ICD-10 : R05 05/06/2019 Patient Education: Singulair- Optimize[employer] Coupon [id number] https://www.[employer]/resources/getResource/61/[email or web address]-vs Completed 05/06/2019 Care Plan: CT THORAX W/O DYE LOINC : 473 66-0 Pending 05/06/2019 Appointment: Belia Reid WPtel: [address] [place], [place] [id number] [place] RESCHEDULED 04/30/2019 Visit Diagnosis Plan: Muscle, [...] : R06.1 04/29/2019 Appointment: Belia Reid WPtel: [facility] Hospital Follow Up 04/29/2019 Patient Education: Valium- [employer] Coupon [id number] https://www.[employer]aya[employer]/sampleVeebeam/resources/getResource/61/[email or web address] Completed 04/29/2019 Visit Diagnosis Plan: Weight gain [...] ICD-10 : R10.9 04/16/2019 Appointment: Pattie Sotomayor [address] [place], [place] [id number] ACUTE ILLNESS 04/16/2019 Patient Education: cyclobenzaprine- [employer] Coupon [id number] https://www.[employer]/resources/getResource/61/[email or web address] Completed 04/16/2019 Visit Diagnosis Plan: Generalized pruritus Discussion: Hydroxyzine 25mg po TID for itching and anxiety ICD-9 : 698.9 ICD-10 : L29.9 04/08/2019 Visit Diagnosis Plan: Migraine, unspecif ied, not intractable, without status migrainosus Discussion: Increase gabapentin to 600mg po BID ICD-9 : 346.90 ICD-10 : G43.909 04/08/2019 Appointment: Belia Reid WPtel: [phone] [facility] ACUTE ILLNESS 04/08/2019 Visit Diagnosis Plan: [...] : M75.52 01/22/2019 Appointment: Belia Reid WPtel: [address] [place] [address] Hospital Follow Up 01/22/2019 Visit Diagnosis Plan: Abdominal pain Discussion: urine culture sent to assess for any infection. rocephin given in office to cover for pyelonephritis. instructed to push fluids. call office with any new or worsening symptoms. ICD-9 : 789.00 ICD-10 : R10.9 01/07/2019 Appointment: Pattie Sotomayor [address] ACUTE ILLNESS 01/07/2019 Visit Diagnosis Plan: Low back pain Discussion: Stat C T of abdomen/pelvis now ICD-9 : 724.2 ICD-10 : M54.5 12/24/2018 Appointment: Belia Reid WPtel: [address] [place] [address] FOLLOW UP 12/24/2018 Visit Diagnosis Plan: Fibromyalgia [...] : G43.909 11/20/2018 Appointment: Belia Reid WPtel: [address] [place] [address] ACUTE ILLNESS 11/20/2018 Patient Education: baclofen- [employer] Coupon [id number] https://www.[employer]samplemd/resources/getResource/61/[email or web address]-[email or web address] Completed 11/20/2018 Visit Diagnosis Plan: Migraine, unspecif ied, intractable, without status migrainosus Discussion: toradol/phenergan given in o ffice (60 mg toradol, 12.5 mg phenergan). instructed to call if no improvement or worsening. instructed to follow up with senior ux developer since headaches are occurring more frequently to make sure vision is not the cause. ICD-9 : 346.91 ICD-10 : G43.919 11/04/2018 Visit Diagnosis Plan: Acute sinusitis, unspecified Dis cussion: zithromax prescribed to cover for sinus infection due to length of symptoms and clinincal s/s. ICD-9 : 461.9 ICD-10 : J01.90 11/04/2018 Appointment: Pattie Sotomayor [address] [place] [address] ACUTE ILLNESS 11/04/2018 Appointment: Belia Reid WPtel: [phone] [address] US CANCELED 09/24/2018 Visit Diagnosis Plan: Type 2 diabetes me llitus with diabetic neuropathy, unspecified Discussion: Retry gabapentin 300mg po q HS ICD-9 : 250.60 ICD-10 : E11.40 09/18/2018 Visit Diagnosis Plan: Encounter for [facility] adult medical examination without abnormal findings [...] E55.9 09/18/2018 Appointment: Belia Reid WPtel: [phone] Annual Well Visit 09/18/2018 Patient Education: gabapentin- Opt[employer] Coupon [id number] https://www.[employer].com/samplemd/resources/getResource/61/[email or web address]-m9 Completed 09/18/2018 Visit Diagnosis Plan: Pain in [...] ICD-10 : M54.89 09/08/2018 Appointment: Pattie Sotomayor [address] [place] [address] ACUTE ILLNESS 09/08/2018 Patient Education: prednisone- Opt[employer]RX Coupon [id number] https://www.[employer]/samplemd/resources/getResource/61/[email or web address]-lm Completed 09/08/2018 Visit Diagnosis Plan: Acute stress [...] L29.9 08/20/2018 Appointment: Belia Reid WPtel: [phone] [id number] ACUTE ILLNESS 08/20/2018 Patient Education: Lexapro- Opt[employer] Coupon [id number] Completed 08/20/2018 Patient Education: hydroxyzine HCl- Opt[employer] Coupon [id number] Completed 08/20/2018 Care Plan: MAMMOGRAM SCREENING LOINC : 2 6347-5 Pending 08/20/2018 Visit Diagnosis Plan: Paroxysmal atrial fibrillation D iscussion: Discuss eliquis need with cardiology at [facility] due to cost ICD-9 : 427.31 ICD-10 : I48.0 06/19/2018 Visit Diagnosis Plan: Hypotension due to drugs Discuss ion: Discussed decreasing cardizem dose due to low BP and edema but sees cardiology next week Follow Up: 1 months ICD-9 : 458.8 ICD-10 : I95.2 06/19/2018 Appointment: Belia Reidtel: [address] [place], [place] [phone] US FOLLOW UP 06/19/2018 Visit Diagnosis Plan: [...] : R61 06/09/2018 Appointment: Belia Reid WPtel: [address] [place], [place] [phone] US FOLLOW UP 06/09/2018 Care Plan: CHEST X-RAY 2VW FRONTAL&LATL LOINC : 51606-9 Pending 05/26/2018 Visit Diagnosis Plan: Stridor Discussion: [...] : I47.1 05/21/2018 Appointment: Belia Reid WPtel: [address] [place], [place] [phone] Hospital Follow Up 05/21/2018 Visit Diagnosis Plan: Cervical disc diso rder with radiculopathy, unspecified cervical region Discussion: Scheduled for surgery on 06/02 10/[address] Faulkner ICD-9 : 722.0 ICD-10 : M50.10 04/16/2018 Appointment: Belia Reid WPtel: [address] [place] [address] Follow Up 04/16/2018 Visit Diagnosis Plan: Migraine, [...] ICD-10 : M79.7 04/01/2018 Appointment: Pattie Sotomayor [address] [place] [address] ACUTE ILLNESS 04/01/2018 Appointment: Belia Reid WPtel: [address] [place], [place] [phone] UA 03/17/2018 Visit Diagnosis Plan: Erythema intertrigo [...] : J44.1 03/06/2018 Appointment: Belia Reid WPtel: [address] [place], [place] [phone] Hospital Follow Up 03/06/2018 Visit Diagnosis Plan: Cervicalgia Discussion: spoke wi dr. reid about patient. increased gabapentin to bid and started on celebrex bid. tramadrol rx written out to take prn. keep scheduled appt next week for myelogram. ICD-9 : 723.1 ICD-10 : M54.2 02/05/2018 Appointment: Pattie Sotomayor [address] [place] [address] ACUTE ILLNESS 02/05/2018 Care Plan: X-RAY EXAM NECK SPINE 4/5VWS cervical LOINC : 18067-9 Pending 01/21/2018 Visit Diagnosis Plan: Candidiasis of [...] ICD-10 : M54.2 01/20/2018 Appointment: Pattie Sotomayor [address] [place] [address] ACUTE ILLNESS 01/20/2018 Visit Diagnosis Plan: Pain in thoracic spine Discussio n: Proceed with CT scan of thoracic spine Will likely need PT ICD-9 : 724.1 ICD-10 : M54.6 12/25/2017 Appointment: Belia Reid WPtel: [address] [facility] FOLLOW UP 12/25/2017 Care Plan: CT THORAX W/O DYE LOINC : 473 66-0 Pending 12/25/2017 Visit Diagnosis Plan: Pain in thoracic spine Discussio n: Stretches Alternated heat/ice Topical aspercreme with lidocaine Flexeril Recheck 1 week Flu and Pneumovax given ICD-9 : 724.1 ICD-10 : M54.6 12/17/2017 Appointment: Belia Reid WPtel: [address] [place], [place] [phone] ACUTE ILLNESS 12/17/2017 Patient Education: [...] : J44.1 10/30/2017 Appointment: Belia Reid WPtel: [address] [place] [address] FOLLOW UP 10/30/2017 Patient Education: Patient Medication Summary Completed 10/30/2017 Visit Diagnosis Plan: Chronic obstructiv e pulmonary disease with acute lower respiratory infection Discussion: Continue SVNs with albuterol q4hrs Add Trelagy 1 inhalation daily Finish steroids Increase water intake Follow Up: 1 weeks ICD-9 : 496 ICD-10 : J44.0 10/23/2017 Appointment: Belia Reid WPtel: [address] [place] [address] WORK IN 10/23/2017 Patient Education: Patient Medication Summary Completed 10/23/2017 Appointment: Belia Reid WPtel: [address] [place], [place] [phone] NO SHOW 10/16/2017 Visit Diagnosis Plan: Confusional [...] : E11.65 09/17/2017 Appointment: Belia Reid WPtel: [address] [place], [place] [phone] Annual Well Visit 09/17/2017 Patient Education: Patient Medication Summary Completed 09/17/2017 Appointment: Belia Reid WPtel: [address] [place], [place] [phone] [place] INJECTION 08/26/2017 Patient Education: Patient Medication Summary Completed 08/26/2017 Appointment: Belia Reid WPtel: [address] [facility] [place] CANCELED 07/31/2017 Visit Diagnosis Plan: [...] ICD-10 : J20.9 07/19/2017 Appointment: Pattie Sotomayor [address] [place] [address] ACUTE ILLNESS 07/19/2017 Patient Education: Patient Medication Summary Completed 07/19/2017 Care Plan: MAMMOGRAM SCREENING LOINC : 2 6347-5 Pending 07/19/2017 Patient Education: Patient Medication Summary Completed 06/05/2017 Care Plan: LIPID PANEL LOINC : 37532-9 Pending 06/05/2017 Care Plan: A1C HPLC LOINC : 58925-8 Pending 06/05/2017 Visit Diagnosis Plan: Rash and [...] ICD-10 : R21 05/29/2017 Appointment: Pattie Sotomayor [address] [place] [address] FOLLOW UP 05/29/2017 Patient Education: Patient Medication Summary Completed 05/29/2017 Visit Diagnosis Plan: Diarrhea, unspecified Discussion : Diflucan Cholestyramine Recheck 2weeks ICD-9 : 787.91 ICD-10 : R19.7 05/07/2017 Visit Diagnosis Plan: Tinea corporis Discussion: Diflu can and topical nystatin Follow Up: 2 weeks ICD-9 : 110.5 ICD-10 : B35.4 05/07/2017 Appointment: Belia Reid WPtel: [address] [place] [address] [place] FOLLOW UP 05/07/2017 Patient Education: Patient Medication Summary Completed 05/07/2017 Appointment: Belia Reid WPtel: [address] [place] [address] [place] RESCHEDULED 04/30/2017 Visit Diagnosis Plan: Stridor Discussion: Increase Ati van 0.5mg po to TID routinely for next week then can go back to prn ICD-9 : 786.1 ICD-10 : R06.1 03/18/2017 Visit Diagnosis Plan: Chronic obstructiv e pulmonary disease with (acute) exacerbation Discussion: Finish prednisone Continue S VNS with albuterol ICD-9 : 491.21 ICD-10 : J44.1 03/18/2017 Appointment: Belia Reid WPtel: [address] [place] [address] ER Follow UP 03/18/2017 Patient Education: Patient [...] E11.65 02/27/2017 Appointment: Belia Reid WPtel: [address] [facility] [place] FOLLOW UP 02/27/2017 Patient Education: [...] ICD-10 : E11.65 02/22/2017 Appointment: Pattie Sotomayor [address] [place] [address] ACUTE ILLNESS 02/22/2017 Patient Education: Patient Medication [...] J18.9 01/23/2017 Appointment: Belia Reid WPtel: [address] [facility] ER Follow UP 01/23/2017 Patient Education: Patient Medication Summary Completed 01/23/2017 App[facility]ment[facility] CAN[facility] 01/17/2017 Appointment: Pattie Sotomayor [address] [employer] [...] : E11.65 12/20/2016 Appointment: Belia Reid WPtel: [address] [place], [place] [phone] FOLLOW UP 12/20/2016 Patient Education: Patient Medication Summary Completed 12/20/2016 Patient Education: Patient Medication Summary Completed 10/10/2016 Visit Plan: Xrays of cervical, thoracic and lumbar spine at ERx for Mobic (stop NSAIDS except Tylenol) and Flexeril UA sent for C&S Using SVN Call in 2-3 days if pain not improved or any worsening 10/08/2016 Appointment: Celeste Ferreira WPtel: [address] [place], [place] [phone] ACUTE ILLNESS 10/08/2016 Patient Education: [...] : G43.909 09/19/2016 Appointment: Belia Reid WPtel: [facility]9 [facility] 09/18 confirmed`sl FOLLOW UP 09/19/2016 Patient [...] : G43.909 08/20/2016 Appointment: Belia Reid WPtel: [address] [place], [place] [phone] 08/16 confirmed~sl FOLLOW UP 08/20/2016 Patient Education: [...] : R06.1 06/19/2016 Appointment: Belia Reid WPtel: [address] [place] [address] 06/18 confirmed ~ Hospital Follow Up 06/19/2016 [...] : J44.9 06/04/2016 Appointment: Belia Reid WPtel: [address] [place], [place] [phone] 06/01 confirmed~ FOLLOW UP 06/04/2016 Patient Education: [...] : N30.90 05/02/2016 Appointment: Belia Reid WPtel: [facility] 05/01 confirmed ~ Hospital Follow Up 05/02/2016 [...] : M79.7 04/03/2016 Appointment: Belia Reid WPtel: [address] [place] [address] [facility] Up 04/03/2016 Patient Education: Patient Medication Summary Completed 04/03/2016 Visit Plan: Lungs are clear Her symptoms and exam are all upper airway restriction/constriction Can try supportive care Rx as above Follow up PRN 02/29/2016 Appointment: Lidia Hwang [address] [place], [place] [address] [place] ACUTE ILLNESS 02/29/2016 Patient Education: Patient Medication Summary Completed 02/29/2016 Visit Plan: Toradol/Phenergan today for Migraine Change to Clindamycin to cover lactobacillus for UTI Cover with flagyl due to hx of C. Diff 02/02/2016 Appointment: Belia Reid WPtel: [address] [place] [address] 01/31 confirmed`sl ACUTE ILLNESS 02/02/2016 Patient Education: Patient Medication Summary Completed 02/02/2016 Visit Plan: Increase neurontin to 300mg q AM and 600mg q PM Discussed neurology re-evaluation Flu shot given Need to check on Pneumonia shot Rx written out for albuterol 01/05/2016 Appointment: Belia Reid WPtel: [address] [place] [address] 01/03 confirmed ~sl Annual Well Visit 01/05/2016 Patient Education: Patient Medication Summary Completed 01/05/2016 Visit Plan: Cipro Culture urine hydrate Flexeril refilled Alternate heat and ice for back Increase gabapentin to 300mg po BID Notify if worsens 12/05/2015 Appointment: Belia Reid WPtel: [address] [place] [address] 11/30 confirmed~sl ACUTE ILLNESS 12/05/2015 Patient Education: Patient Medication Summary Completed 12/05/2015 Patient Education: Patient Medication Summary Completed 10/27/2015 Care Plan: [place] : [address]-9 Pending 10/27/2015 Care Plan: A1C HPLC LOINC : 62419-7 Pending 10/27/2015 Visit Plan: Lungs are CTA today and is f eeling improved overall Finish meds as ordered Continue inhalers and neb treatments Discussed migraine treatment options She does not feel she needs anything additional added today Refill of Januvia sent since no samples are available today 10/26/2015 Appointment: Lidia Hwang [address] [facility] Hospital Follow Up 10/26/2015 Appointment: Lidia Hwang [address] [place], [place] [address] CANCELED 10/26/2015 Patient Education: Patient Medication Summary Completed 10/26/2015 Patient Education: Natalia Lacey+ - KENNETH - No [place] Completed 10/26/2015 Visit Plan: Office dip still abnormal Cu lture pending Switch to cipro - stop macrobid Push fluids - avoid caffeine Will call with culture results when available Follow up if worsening 10/05/2015 Appointment: Lidia Hwang [address] ER Follow UP 10/05/2015 Patient Education: Patient Medication Summary Completed 10/05/2015 Visit Plan: Proceed with PT for document ation of ROM and strength of all extremities Proceed with Power Mobility Device Trial of neurontin 300mg q HS--lyrica helped but patient unable to afford Recheck 1month 09/15/2015 Appointment: Belia Reid WPtel: [address] [place], [place] [phone] 09/13 confirmed~sl SPECIAL 09/15/2015 Patient Education: Patient Medication Summary Completed 09/15/2015 Visit Plan: Fille out Loan Discharge Pap erwork for total and permanent disability 08/25/2015 Patient Education: Patient Medication Summary Completed 08/25/2015 Visit Plan: Discussed with Dr Anushka Haywood at CT of head Will get last date of carotid doppler from her ota and update if needed 08/24/2015 Appointment: Lidia Hwang [address] [place], [place] [phone] 08/22 confirmed~sl ACUTE ILLNESS 08/24/2015 Patient Education: Patient Medication Summary Completed 08/24/2015 Patient Education: Patient Medication Summary Completed 08/24/2015 Care Plan: US EXAM OF HEAD AND NECK carotid Ultrasound LOIN C : 83085-2 Pending 08/24/2015 Visit Plan: Long discussion about diet A ccuchecks daily Check HbA1C, CMP Change requip to mirapex 07/05/2015 Appointment: Belia Reidtel: [address] [place], [place] [phone] 07/03 confirmed ~sl FOLLOW UP 07/05/2015 Patient Education: Patient Medication Summary Completed 07/05/2015 Visit Plan: Add Breo ellipta 100 1 p BID Continue SVNs with duoneb QID 06/06/2015 Appointment: Belia Reid: [address] [place], [place] [phone] Patient is calling for a ride, then retu rning our call.-sp 06/01 called and patient stated she will know saturday if she can get a ride~sl 06/05 [facility] Follow Up 06/06/2015 Patient Education: Patient Medication [...] not improving 05/23/2015 Appointment: Huong Osborne WPtel: [address] [place], [place] [phone] ACUTE ILLNESS 05/23/2015 Appointment: Lidia Hwang [address] [place], [place] [phone] ER Follow UP 05/23/2015 Patient Education: Patient Medication Summary Completed 05/23/2015 Visit Plan: Check pancreatic enzymes and US of pancreas as patient can't understand why she has diabetes since has no family history Discussed weight, diet, exercise all play an important role in diabetes and are risk factors as well Continue Januvia and accuchecks daily 05/05/2015 Appointment: Belia Reid WPtel: [address] [place], [place] [phone] [place] FOLLOW UP 05/05/2015 Patient Education: Patient Medication Summary Completed 05/05/2015 Care Plan: US EXAM ABDOM COMPLETE LOINC : 36556-0 Ordered 05/05/2015 Visit Plan: Start Januvia 100mg daily [place] with diflucan and culture urine Accuchecks daily alternating times Recheck 6weeks 03/30/2015 Appointment: Belia Reid WPtel: [address] [place], [place] [address] 03/29 confirmed~lb FOLLOW UP 03/30/2015 Patient Education: Patient Medication Summary Completed 03/30/2015 Appointment: Belia Reidteabigail: [address] [place] [address] 03/01 needs reschedule due to payment and insurance ~sl FOLLOW UP 03/02/2015 Visit Plan: Patient was just in ER last night so has not filled scripts yet Start Carafate and Flagyl and Cipro Add Hyophen 1 po BID Recheck 1mo 02/03/2015 Appointment: Belia Reid WPtel: [address] [place] [address] 02/02lm ~sl...02/03/15 appt confirmed cn ACUTE I LLNESS 02/03/2015 Patient Education: Patient Medication Summary Completed 02/03/2015 Visit Plan: Warm soaks to vaginal area K elex and Diflucan and observe Zofran to use prn 12/29/2014 Appointment: Belia Reid WPtel: [address] [place] [address] 12/28 Confirmed ~sl ACUTE ILLNESS 12/29/2014 Patient Education: Patient Medication Summary Completed 12/29/2014 Appointment: Huong Osborne WPtel: [address] [place] [address] FOLLOW UP 09/24/2014 Appointment: Belia Reid WPtel: [address] [place] [address] 09/15 confirmed -mf FOLLOW UP 09/16/2014 Visit Plan: Increase requip to 2mg po BI D Increase lyrica to 225mg total a day by adding an extra 75mg in AM Recheck in 2weeks Continue to patch left eye while sleeping 09/02/2014 Appointment: Belia Reid WPtel: [address] [place] [address] 09/01 appt confirmed cn Hospital Follow Up 09/02 Patient Education: Patient Medication Summary Completed 09/02/2014 Visit Plan: To [facility] for observat ion to R/O CVA 08/25/2014 Appointment: Huong Osborne: [address] [place], [place] [id number] ACUTE ILLNESS 08/25/2014 Patient Education: Patient Medication Summary Completed 08/25/2014 Referral: Aaron Jonas WPtel: [facility] [address], [facility] 1 [id number] [place] In [place] location Initiated 04/26/2014 Referral: Brian Srinivasan WPtel: [address] [facility] [place] [id number] Referral Initiated 04/20/2014 Appointment: Belia Reid WPtel: [address] [place], [place] [phone] ER Follow UP 04/01/2014 Patient Education: Patient Medication Summary Completed 04/01/2014 Care Plan: MYELOGRAPHY NECK SPINE LOINC : 18344-1 Ordered 04/01/2014 Visit Plan: Continue Symbicort 160 at 2p BID Continue SVNs with duoneb at least QID Finish Levaquin Recheck 1mo on lyrica 03/16/2014 Appointment: Belia Reid WPtel: [address] [place], [place] [phone] 03/15 voicemail FOLLOW UP 03/16/2014 Patient Education: Patient Medication Summary Completed 03/16/2014 Visit Plan: Restart SVNs with duoneb QID Repeat prednisone Levaquin Continue symbicort Keep lyrica at same dose Recheck 1week 03/09/2014 Appointment: Belia Reid WPtel: [address] [place], [place] [phone] FOLLOW UP 03/09/2014 Patient Education: Patient Medication Summary Completed 03/09/2014 Appointment: Belia Reid WPtel: [address] [place], [place] [phone] 03/03 showed up 15 minutes late for appt -- put her on Huong's side for 10:45am FORGIVEN PER DR FOLLOW UP 03/03/2014 Appointment: Huong Osborne WPtel: [address] [place], [place] [phone] FOLLOW UP 03/03/2014 Patient Education: Patient Medication Summary Completed 03/03/2014 Appointment: Huong Osborne WPtel: [address] [place], [place] [phone] ER Follow UP 03/01/2014 Patient Education: Patient Medication Summary Completed 03/01/2014 Visit Plan: Add carafate for this next m onth Increase lyrica to 150mg q HS 02/09/2014 Appointment: Belia Reid WPtel: [address] [place], [place] [phone] [place] [address] Follow Up 02/09/2014 Patient Education: Patient Medication Summary Completed 02/09/2014 Visit Plan: Increase omeprazole back to 40mg po BID Use requip in AM and add lyrica 75mg q HS Recheck 1mo 12/23/2013 Appointment: Belia Reid WPtel: [address] [place], [place] [phone] FOLLOW UP 12/23/2013 Patient Education: Patient Medication Summary Completed 12/23/2013 Patient Education: Patient Medication Summary Completed 12/04/2013 Appointment: Belia Reid WPtel: [address] [place], [place] [phone] [facility] 10/30/2013 Patient Education: Patient Medication Summary Completed 10/30/2013 Appointment: Belia Reid WPtel: [address] [place], [place] [phone] [facility] 10/21/2013 Patient Education: Patient Medication Summary Completed 10/21/2013 Visit Plan: Cryotherapy as above TAC and hydroxyzine to use prn to itching spots and itching SKs Add Advair HFA 115/21 1 p BID 10/05/2013 Appointment: Belia Reid WPtel: [address] [place], [place] [phone] 10/01 pt called and confirmed ACUTE ILLNESS Patient Education: Patient Medication Summary Completed 10/05/2013 Appointment: Belia Reid WPtel: [address] [place], [place] [phone] [place] will pay copay and part of past balance FOLLOW U P 08/04/2013 Patient Education: Patient Medication Summary Completed 08/04/2013 Appointment: Belia Reid WPtel: [address] [place], [place] [phone] [place] INJECTION 07/13/2013 Patient Education: Patient Medication Summary Completed 07/13/2013 Appointment: Huong Osborne WPtel: [address] [place], [place] [phone] ACUTE ILLNESS 07/03/2013 Patient Education: Patient Medication Summary Completed 07/03/2013 Visit Plan: Cipro and culture urine 05/27/2013 Appointment: Huong Osborne WPtel: [address] [place], [place] [phone] 05/26 confirmed appt and notified that balance and copy messenger y is due at appt time FOLLOW UP 05/27/2013 Patient Education: Patient Medication Summary Completed 05/27/2013 Appointment: Belia Reid WPtel: [address] [place], [place] [phone] [place] UA 05/25/2013 Patient Education: Patient Medication Summary Completed 05/25/2013 Appointment: Belia Reid WPtel: [address] [place], [place] [phone] [place] INJECTION 05/04/2013 Patient Education: Patient Medication Summary Completed 05/04/2013 Appointment: Belia Reid WPtel: [address] [place], [place] [phone] [place] INJECTION 04/17/2013 Patient Education: Patient Medication Summary Completed 04/17/2013 Appointment: Belia Reid WPtel: [address] [place], [place] [phone] [place] INJECTION 04/15/2013 Appointment: Belia Reidl: [address] [place], [place] [phone] 04/02 FOLLOW UP 04/06/2013 Patient Education: Patient Medication Summary Completed 04/06/2013 Visit Plan: Obtain lab results including UA from [facility] 11/10/2012 Appointment: Belia Reid WPtel: [address] [place], [place] [phone] ER Follow UP 11/10/2012 Patient Education: Patient Medication Summary Completed 11/10/2012 Appointment: Belia Reid WPtel: [address] [place], [place] [phone] 10/30/12 patient canceled appt due to fin ances. Offered to work something out, patient declined-LB FOLLOW UP 11/05/2012 Visit Plan: Continue Bystolic at current dose Pt has fwup with Neurology on September 16 09/02/2012 Appointment: Belia Reid WPtel: [address] [place], [place] [phone] FOLLOW UP 09/02/2012 Patient Education: Patient Medication Summary Completed 09/02/2012 Visit Plan: Continue bystolic at 5mg chris ly Sees Neurology tomorrow Use oxygen at bedtime 08/04/2012 Appointment: Belia Reid WPtel: [address] [place] [id number] FOLLOW UP 08/04/2012 Patient Education: Patient Medication Summary Completed 08/04/2012 Appointment: Belia Reid WPtel: [address] [place], [place] [phone] has Hospital fwup for 07/21/12. merged appointments FOLLOW UP 07/24/2012 Visit Plan: Start Bystolic 5mg daily for tachycardia Fwup with neurology for further workup Overnight O2 sat 07/21/2012 Appointment: Belia Reid WPtel: [address] [place], [place] [phone] Hospital Follow Up 07/21/2012 Patient Education: Patient Medication Summary Completed 07/21/2012 Visit Plan: SVN with Albuterol QID Add A velox 400mg daily Notify if worsens or persists 07/02/2012 Appointment: Belia Reidtel: [address] [place], [place] [phone] ACUTE ILLNESS 07/02/2012 Patient Education: Patient Medication Summary Completed 07/02/2012 Appointment: Belia Reid WPtel: [address] [place], [place] [phone] INJECTION 06/25/2012 Patient Education: Patient Medication Summary Completed 06/25/2012 Appointment: Belia Reid WPtel: [address] [place] [address] FOLLOW UP 06/24/2012 Patient Education: Patient Medication Summary Completed 06/24/2012 Appointment: Belia Reid WPtel: [address] [place], [place] [phone] 05/19 [facility] FOLLOW UP 05/20/2012 Patient Education: Patient Medication Summary Completed 05/20/2012 Visit Plan: DC Neurontin--discussed that this may be causing some of symptoms Also discussed that stress is likely contributing factor Discussed that may be going through withdrawal from stopping pain meds cold turkey--pt states stopped meds 2wks ago do to not helping Increase Buspar to 10mg po TID 05/08/2012 Appointment: Belia Reid WPtel: [address] [place], [place] [phone] ACUTE ILLNESS 05/08/2012 Patient Education: Patient Medication Summary Completed 05/08/2012 Visit Plan: Continue current meds Contin ue lower dose on pain meds and Diazepam Still waiting on paperwork for botox for Migraines Will restart Neurontin at 600mg po q HS Pt going to stop Depakote due to can't afford 04/22/2012 Appointment: Belia Reid WPtel: [address] [place], [place] [phone] 02/18 Hospital Follow Up 04/22/2012 Patient Education: Patient Medication Summary Completed 04/22/2012 Visit Plan: Injection to shoulder as abo ve Continue current meds Has appointment with neurology on HAs in 02/13/2012 Appointment: Belia Reid WPtel: [address] [place], [place] [phone] [facility] will [facility] it in next week. Kianna iqbal'ed this. - [place] FOLLOW UP 02/13/2012 Patient Education: Patient Medication Summary Completed 02/13/2012 Visit Plan: Proceed with headache specia list Change nexium to Protonix Phenergan to use prn Sumatriptan to use prn Pt still on Inderal 01/28/2012 Appointment: Belia Reid WPtel: [address] [place], [place] [address] ER Follow UP 01/28/2012 Patient Education: Patient [...] for sleep 12/26/2011 Appointment: Belia Reid WPtel: [address] [place], [place] [phone] 12/24- appt. confirmed FOLLOW UP 2 Patient Education: Patient Medication Summary Completed 12/26/2011 Appointment: Belia Reid WPtel: [address] [place], [place] [phone] [place] FOLLOW UP 11/14/2011 Patient Education: Patient Medication Summary Completed 11/14/2011 Appointment: Belia Reid WPtel: [address] [place], [place] [phone] [place] FOLLOW UP 09/12/2011 Patient Education: Patient Medication Summary Completed 09/12/2011 Visit Plan: Supportive care Decrease Liseth catalino to 50mg q HS Decrease AM dose of Valium to 5mg q HS Use Endocet sparingly 08/15/2011 Appointment: Belia Reid WPtel: [address] [place], [place] [phone] ER Follow UP 08/15/2011 Patient Education: Patient Medication Summary Completed 08/15/2011 Appointment: Belia Reid WPtel: [address] [place] [address] Spoke directly to patient yesterday and confirmed the appoin tment. ACUTE ILLNESS 08/09/2011 Patient Education: Patient Medication Summary Completed 08/09/2011 Appointment: Belia Reid WPtel: [address] [place] [address] Hospital Follow Up 07/03/2011 Patient Education: Patient Medication Summary Completed 07/03/2011 Appointment: Belia Reid WPtel: [address] [place], [place] [address] FOLLOW UP 06/04/2011 Patient Education: Patient Medication Summary Completed 06/04/2011 Visit Plan: Pt. wants "allergy shot" but in fact wants steroid shot. Will take a break from "generic Zyrtec they are getting from [facility]" and try Singulair for 2 weeks. 05/03/2011 Appointment: Iraida Jones WPtel: [address] [place], [place] [phone] ACUTE ILLNESS 05/03/2011 Patient Education: Patient Medication Summary Completed 05/03/2011 Visit Plan: Neurontin 400mg q HS for 1we ek then 800mg q HS Decrease requip to 1mg q HS for 2wks then stop Fwup 2mos 04/05/2011 Appointment: Belia Reid WPtel: [address] [place], [place] [phone] [place] FOLLOW UP 04/05/2011 Patient Education: Patient Medication Summary Completed 04/05/2011 Visit Plan: Trial of neurontin in 2wks Iván kay current meds for stomach Pt has procedure with Dr. Ortiz next week for stone removal 03/08/2011 Appointment: Belia Reid WPtel: [address] [place] [address] Follow Up 03/08/2011 Patient Education: Patient Medication Summary Completed 03/08/2011 Appointment: Belia Reid WPtel: [address] [place] [address] FOLLOW UP 02/19/2011 Visit Plan: reports increased [...] with Flagyl 01/24/2011 Appointment: Iraida Jones WPtel: [address] [place] [address] ACUTE ILLNESS 01/24/2011 Patient Education: Patient Medication Summary Completed 01/24/2011 Appointment: Belia Reid WPtel: [address] [place] [address] FOLLOW UP 01/02/2011 Patient Education: Patient Medication Summary Completed 01/02/2011 Appointment: Belia Reid WPtel: [address] [place] [address] FOLLOW UP 12/12/2010 Appointment: Belia Reid WPtel: [address] [place] [address] ACUTE ILLNESS 12/07/2010 Patient Education: Patient Medication Summary Completed 12/07/2010 Visit Plan: Increase Buspar to 10mg po B ID 11/16/2010 Appointment: Belia Reid WPtel: [address] [place] [address] FOLLOW UP 11/16/2010 Patient Education: Patient Medication Summary Completed 11/16/2010 Appointment: Iraida Jones WPtel: [address] [place] [address] ER Follow UP 11/02/2010 Patient Education: Patient Medication Summary Completed 11/02/2010 Visit Plan: Depo-Medrol/Kenalog given fo r allergies Add BuSpar for anxiety Oxycodone 10 one p.o. q.i.d. for number 120 refilled 10/18/2010 Appointment: Belia Reid WPtel: [address] [place] [address] FOLLOW UP 10/18/2010 Patient Education: Patient Medication Summary Completed 10/18/2010 Visit Plan: Continue current meds Discus sed epidurals for back vs PT--will proceed with epidurals to thoracolumbar region to see if helps with pain 09/19/2010 Appointment: Belia Reid WPtel: [address] [place] [address] FOLLOW UP 09/19/2010 Patient Education: Patient Medication Summary Completed 09/19/2010 Visit Plan: DC MS contin Check CT scan t horacic spine Fwup pending above results 09/06/2010 Appointment: Belia Reid WPtel: [address] [place] [address] FOLLOW UP 09/06/2010 Patient Education: Patient Medication Summary Completed 09/06/2010 Visit Plan: Continue current meds Restar t MS contin 15mg po BID and use oxycodone prn Use daily senokot-s 2 po BID 08/10/2010 Appointment: Belia Reid WPtel: [address] [place] [address] [place] FOLLOW UP 08/10/2010 Patient Education: Patient Medication Summary Completed 08/10/2010 Visit Plan: Depomedrol/Kenalog given Pt sees ENT later this month Cont current meds Mammo scheduled 05/11/2010 Appointment: Belia Reid WPtel: [address] [place] [address] FOLLOW UP 05/11/2010 Patient Education: Patient Medication Summary Completed 05/11/2010 Appointment: Belia Reidtel: [address] [place] [address] 05/04/2010 Patient Education: Patient Medication Summary Completed 05/04/2010 Visit Plan: Pt sent to lab for UA 04/28/2010 Appointment: Belia Reid WPtel: [address] [place] [address] 04/28/2010 Patient Education: Patient Medication Summary Completed 04/28/2010 Visit Plan: Check CT angiogram of chest Restart Advair Use proair prn Cont current meds Fwup with Card as schedulec 04/06/2010 Appointment: Belia Reidtel: [address] [place] [address] Hospital Follow Up 04/06/2010 Patient Education: Patient Medication Summary Completed 04/06/2010 Visit Plan: Paperwork filled out for pow erchair Depomedrol/kenalog given Pt sees ENT in 2wks to assess nasal obstruction problems 02/09/2010 Appointment: Belia Reidtel: [address] [place] [address] ESTABLISHED PATIENT 02/09/2010 Patient Education: Patient Medication Summary Completed 02/09/2010 Visit Plan: Change Elavil to Trazadone 1 50mg q HS Diflucan and nystatin for tinea cruris 01/05/2010 Appointment: Belia Reidtel: [address] [place] [address] FOLLOW UP 01/05/2010 Patient Education: Patient Medication Summary Completed 01/05/2010 Appointment: Belia Reidtel: [address] [place], [place] [id number] FOLLOW UP 12/07/2009 Patient Education: Patient Medication Summary Completed 12/07/2009 Appointment: Belia Reid WPtel: [address] [place], [place] [id number] FOLLOW UP 11/22/2009 Visit Plan: Cont current meds and await MRI results from Dr. Meadows's office and his final recommendations Will need to follow-up at later date on deviated septum 11/08/2009 Appointment: Belia Reid WPtel: [address] [place] [address] FOLLOW UP 11/08/2009 Patient Education: Patient Medication Summary Completed 11/08/2009 Visit Plan: Cont PT/OT See Neurosurgery Cont Tortoise shell brace 10/24/2009 Appointment: Belia Reid WPtel: [address] [place] [address] FOLLOW UP 10/24/2009 Patient Education: Patient Medication Summary Completed 10/24/2009 Appointment: Belia Reid WPtel: [address] [place] [address] Follow Up 10/17/2009 Appointment: Belia Reid WPtel: [address] [place] [address] ACUTE ILLNESS 07/25/2009 Patient Education: Patient Medication Summary Completed 07/25/2009 Appointment: Belia Reid WPtel: [address] [place] [address] FOLLOW UP 05/26/2009 Patient Education: Patient Medication Summary Completed 05/26/2009 Referral: Chino Balderas WPtel: [address] [id number] Referral Initiated Referral: Merry Vale WPtel: [facility] [id number] Vale will review referral and book appointment Completed Referral: Francisco Javier Yoder WPtel: [address] [id number] [place] Patient needs EGD insurance will not inc rease a medication unless this procedure results show a need Completed Referral: Francisco Javier Yoder WPtel: [address] [id number] [place] Referral Historical Reference Referral: Francisco Javier Yoder WPtel: [address] [id number] [place] Referral Initiated Instructions Comment . Xrays [...] last date of carotid doppler from her ota and update if needed . Long discussion [...]
--- NOTE | 2019-06-23 18:12 | ED Lower Extremity ---
General Chief Complaint: Lower Extremity Stated Complaint: PELVIC PAIN Nursing Triage Note: PT AMBULATES TO ROOM 3 W CANE, PT CO OF L HIP, L GROIN AND PAIN DOWN TO FOOT, PT STATES L FOOT WAS COLDER THAN R EARLIER TODAY AT THIS TIME NO TEMP DIFFERENCE NOTED. L FOOT SL SWOLLEN, PEDAL PULSE PALPATED ON L FOOT. PT STATES HAS BEEN HURTING FOR 2 MONTHS Nursing Sepsis Screen: No Definite Risk Source: patient, old records History of Present Illness Date Seen by Provider: Jun 23, 2019 Time Seen by Provider: 17:50 Initial Comments PT ARRIVES VIA POV FROM HOME--AMBULATES IN ON HER OWN WITHOUT ANY DIFFICULTY WHATSOEVER, CARRYING HER CANE C/O PAIN TO LEFT GROIN FOR SEVERAL MONTHS--PAIN IS NO DIFFERENT TODAY IN ANY WAY STATES PAIN RADIATES DOWN TO HER KNEE AND HER FOOT--STATES "IT'S A BURNING" STATES TODAY HER LEFT LEG AND FOOT FELT COLDER THAN HER RIGHT LEG AND FOOT AND HER LEFT FOOT WAS SWOLLEN TODAY STATES NO KNOWN INJURY, PER PT STATES "I HAVE FIBROMYALGIA SO I ALWAYS HAVE THOSE SHARP PAINS ALL OVER" BUT DENIES ANY NUMBNESS OR TINGLING OR LOSS OF FUNCTION OF LEG STATES "I TALKED TO DR. REVELES ABOUT IT AND SHE THOUGHT IT WAS FROM MY BOWEL INFECTIONS THAT I'VE BEEN HAVING FOR A FEW MONTHS" LATER STATES SHE HAS HAD "BOWEL INFECTIONS FOR YEARS" STATES SHE HAS HAD TEMP UP TO 101--OFF AND ON FOR MANY MONTHS--STATES "I HAVE OTHER INFECTIONS--UTI'S AND C. DIFF" STATES "I JUST FINISHED 2 ROUNDS OF FLAGYL"--STATES SHE FINISHED LAST ROUND ON Saturday06/21/19 STATES "I HAVE ALOT OF GAS AND IT EXPLODES AND A LITTLE BIT WILL COME OUT ( STOOL ) " PT CLAIMS THAT NO TESTS HAVE BEEN DONE FOR ALL THESE ISSUES PT WITH A MULTITUDE OF VISITS FOR VARIOUS CHRONIC PAIN COMPLAINTS--MANY FOR CHRONIC HEADACHE COMPLAINTS LAST VISIT HERE 05/08/19 FOR REPORTED SYNCOPAL EPISODE, WITH C/O CHRONIC NECK PAIN, BACK PAIN, LEFT KNEE PAIN PT IS ON MULTIPLE SEDATING MEDICATIONS, INCLUDING DIAZEPAM, GABAPENTIN, BACLOFEN, PHENERGAN, CODEINE PT IS SUPPOSED TO BE ON HOME O2, BUT IS NOT WEARING ANY ON ARRIVAL HERE AND NO COMPLAINTS OF DYSPNEA NO CHEST PAIN NO PALPITATIONS NO SHORTNESS OF BREATH NO COUGH NO KNOWN SICK CONTACTS OR EXPOSURE TO COVID-19 PCP: DR. REVELES Allergies and Home Medications Allergies Coded Allergies: Penicillins (Unverified Allergy, Severe, Pt has received Cefepime & Ceftriaxone in the past w/o issue, 07/21/18) SWELLING, RASH, ITCHING Sulfa (Sulfonamide Antibiotics) (Verified Allergy, Mild, 07/21/18) RASH aspirin (Verified Adverse Reaction, Mild, ASPIRIN SENSITIVE, 07/21/18) UPSET STOMACH sumatriptan (Verified Adverse Reaction, Mild, PALPITATIONS, 07/21/18) IRRITABLE Home Medications Acetaminophen 650 Mg Tablet.er, 650 MG PO Q4H Prescribed by: NANNETTE REVELES on 05/01/18 1042 Apixaban 5 Mg Tablet, 5 MG PO Q12H Prescribed by: YASMANI HAMILTON on 05/01/18 0906 Buspirone HCl 5 Mg Tablet, 5 MG PO TID, (Reported) Diltiazem HCl 240 Mg Cap.er.24h, 240 MG PO DAILY Prescribed by: YASMANI HAMILTON on 05/01/18 0906 Doxepin HCl 10 Mg Capsule, 20 MG PO HS Prescribed by: NANNETTE REVELES on 05/13/18 1711 Doxycycline Hyclate 100 Mg Tablet, 100 MG PO BID Prescribed by: CHERRIE CHURCH on 04/25/19 0909 Hydrocodone Bit/Acetaminophen 1 Tab Tab, 1 TAB PO Q4H PRN for PAIN-MODERATE Prescribed by: NANNETTE REVELES on 05/01/18 1041 Insulin Determir 1,000 Units/10 Ml Soln, 50 UNIT SQ DAILY Prescribed by: NANNETTE REVELES on 05/01/18 1041 Ipratropium/Albuterol Sulfate 3 Ml Ampul.neb, 3 ML NEB Q6H PRN for SHORTNESS OF BREATH, (Reported) Levofloxacin 750 Mg Tablet, 750 MG PO DAILY Prescribed by: BRADY BROWN on 05/22/182035 Lorazepam 0.5 Mg Tablet, 0.5 MG PO TID PRN for ANXIETY Prescribed by: NANNETTE REVELES on 05/01/18 1041 Magnesium Oxide 400 Mg Tablet, 400 MG PO BIDPC Prescribed by: YASMANI HAMILTON on 05/01/18 0906 Melatonin 3 Mg Tablet, 6 MG PO HS Prescribed by: NANNETTE REVELES on 05/01/18 1041 Metformin HCl 500 Mg Tab.er.24h, 1,000 MG PO BID TAKE 2 (500MG) TABS Prescribed by: NANNETTE REVELES on 05/01/18 1041 Metoprolol Tartrate 100 Mg Tablet, 100 MG PO BID, (Reported) Miconazole Nitrate 90 Gm Powder, 0 GM TOP BID to groin twice a day for 2 weeks Prescribed by: NANNETTE REVELES on 05/13/18 1709 Nitrofurantoin Monohyd/M-Cryst 100 Mg Capsule, 100 MG PO BID Prescribed by: PETER ASHLEY on 04/23/19 0046 Nitrofurantoin Monohyd/M-Cryst 100 Mg Capsule, 1 TAB PO BID Prescribed by: PETER ASHLEY on 06/23/19 2105 Omeprazole 40 Mg Capsule.dr, 40 MG PO BID, (Reported) Ondansetron 4 Mg Tab.rapdis, 4 MG PO Q6H PRN for NAUSEA/VOMITING Prescribed by: ISRAEL ODELL on 12/25/18 1247 Phenazopyridine HCl 200 Mg Tablet, 1 TAB PO TID Prescribed by: PETER AHSLEY on 04/23/19 0046 Pramipexole Di-HCl 1 Mg Tablet, 1 MG PO 1700, (Reported) Prednisone 20 Mg Tab, 40 MG PO DAILY Prescribed by: CHERRIE CHURCH on 04/25/19 0909 Promethazine/Phenyleph/Codeine 118 Ml Syrup, 5 ML PO Q6H PRN for cough Prescribed by: CHERRIE CHURCH on 04/25/19 0910 Sennosides 8.6 Mg Tablet, 8.6 MG PO BID Prescribed by: NANNETTE REVELES on 05/01/18 1041 Patient Home Medication List Home Medication List Reviewed: Yes Review of Systems Constitutional: see HPI, fever, malaise, weakness EENTM: no symptoms reported Respiratory: no symptoms reported; No cough; dyspnea on exertion (CHRONIC/STABLE/UNCHANGED); No short of breath, No wheezing Cardiovascular: No chest pain; edema; No palpitations, No syncope Gastrointestinal: see HPI, diarrhea, nausea; No vomiting Genitourinary: see HPI; No dysuria Musculoskeletal: see HPI, back pain (CHRONIC ), neck pain (CHRONIC), other ( LEFT GROIN, ENTIRE LEFT LEG) Skin: no symptoms reported; No rash Psychiatric/Neurological: Denies Numbness, Denies Paresthesia, Denies Tingling, Denies Weakness Past Bghjacx-Resuyo-Buyznr Hx Past Med/Social Hx: Reviewed and Corrections made Patient Social History Alcohol Use: Denies Use Recreational Drug Use: No Smoking Status: Never a Smoker 2nd Hand Smoke Exposure: Yes Recent Foreign Travel: No Contact w/Someone Who Travel: No Recent Infectious Disease Expo: No Recent Hopitalizations: No Physical Abuse: No Sexual Abuse: No Immunizations Up To Date Tetanus Booster (TDap): Unknown PED Vaccines UTD: No Date of Pneumonia Vaccine: Dec 02, 2017 Date of Influenza Vaccine: Dec 31, 2018 Seasonal Allergies Seasonal Allergies: Yes Past Medical History Surgeries: Yes (LAP CORNELIUS; C-SPINE FUSION/DISCECTOMY C5-C6 ) Abdominal, Appendectomy, Cardiac, Defibrillator, Eye Surgery, Gallbladder, Hysterectomy, Oophorectomy, Orthopedic, Pacemaker, Tonsillectomy Respiratory: Yes (O2 AT HS AND PRN) Asthma, Pneumonia, Chronic Bronchitis, Sleep Apnea, COPD Currently Using CPAP: No Currently Using BIPAP: No Cardiac: Yes (PACEMAKER/DEFIBRILLATOR;CARDIAC ARREST DURING ENT SURGERY;PSVT/PALPITATIONS) Coronary Artery Disease, High Cholesterol, Hypertension, Irregular Heartbeat Neurological: Yes (PERIPHERAL NEUROPATHY HANDS/FEET; CHRONIC HEADACHES) Headaches /Migraines, Neuropathy 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 Disorders: No Female 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 Disorders: Denies 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 PAIN) Degenerate Disk Disease, Arthritis, Fibromyalgia, Chronic Back Pain, Fractures Endocrine: Yes Diabetes, Insulin dep, Diabetes, Non-Insulin dep HEENT: Yes (S/P BILATERAL CATARACT SURGERY + YAG PROCEDURE;ENT SURG WITH CARDIAC ARREST) Cataract Loss of Vision: Denies Hearing Impairment: Denies Cancer: No Psychosocial: Yes Anxiety, Depression Integumentary: Yes (NELIA INTERTRIGO) Pruritis Blood Disorders: No Adverse Reaction/Blood Tranf: No Family Medical History Alzheimer's disease 19 FATHER Cardiovascular disease 19 FATHER 19 MOTHER Completed stroke 19 MOTHER Hypertension 19 FATHER 19 MOTHER Myocardial infarction 19 FATHER 19 MOTHER No Family History of: Diabetes mellitus PSH: -T12 KYPHOPLASTY -C5-C6 CERVICAL DISCECTOMY WITH FUSION 04/2018 -LAP CORNELIUS FUNDOPLICATION -EGD'S/ESOPHAGEAL DILATIONS/COLONOSCOPIES/POLYPECTOMIES -PACEMAKER/DEFIBRILLATOR -HYSTERECTOMY/BSO -CHOLECYSTECTOMY -APPENDECTOMY -TONSILLECTOMY -OVARIAN CYST SURGERIES X 4 -CYST FROM BACK REMOVED -ENT SURGERY PMH: -CHRONIC NECK PAIN WITH CERVICAL RADICULOPATHY -RESTLESS LEG SYNDROME -CHRONIC BACK PAIN -T12 COMPRESSION WITH KYPHOPLASTY Physical Exam Vital Signs Vital Signs - First Documented 06/23/19 17:30 Temp 36.6 Pulse 84 Resp 20 B/P (MAP) 149/88 (108) Pulse Ox 97 O2 Delivery Room Air Capillary Refill : Less Than 3 Seconds Height, Weight, BMI Height: 5'4.00" Weight: 215lbs. 0oz. 97.113383hb; 39.00 BMI Method:Stated General Appearance: WD/WN, no apparent distress, other (WALKS IN ON HER OWN WITHOUT ANY DIFFICULTY WHATSOEVER, MOVES WITHOUT DIFFICULTY, TEXTING/PLAYING ON PHONE SHE IS WALKING AND DURING EXAM. DOES NOT APPEAR TO BE IN ANY DISCOMFORT OR DISTRESS. WEARING DARK GLASSES. HAIR DYED PURPLE) Cardiovascular: regular rate, rhythm, no murmur Respiratory: normal breath sounds, no respiratory distress, no accessory muscle use Gastrointestinal: normal bowel sounds, soft, tenderness (MILD LOWER ABDOMINAL TENDERNESS. LEFT INGUINAL TENDERNESS. ) Back: no CVA tenderness Hips: right hip normal inspection; left hip other (LEFT GROIN TENDERNESS.) Legs: right leg normal inspection; left leg other (1+ EDEMA TO LEFT LOWER LEG. PULSES 2+ ON RIGHT, 1+ ON LEFT, BUT SKIN IS PINK, WARM AND DRY WITH GOOD CAPILLARY REFILL. NO DIFFERENCE IN TEMPERATURE OR COLOR OF FEET/LEGS. FULL ROM OF BOTH EXTREMITES, SENSATION INTACT. 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, no motor/sensory deficits, alert, normal mood/affect, oriented x 3 Skin: normal color, warm/dry; No rash Procedures/Interventions Date of ETT Placement: Apr 21, 2018 Time of ETT Placement: 1744 Progress/Results/Core Measures Results/Orders Lab Results Laboratory Tests Test 06/23/19 18:10 06/23/19 18:55 06/23/19 20:59 Range/Units White Blood Count 9.6 4.3-11.0 10^3/uL Red Blood Count 4.59 4.35-5.85 10^6/uL Hemoglobin 13.2 11.5-16.0 G/DL Hematocrit 41 35-52 % Mean Corpuscular Volume 89 80-99 FL Mean Corpuscular Hemoglobin 29 25-34 PG Mean Corpuscular Hemoglobin Concent 32 32-36 G/DL Red Cell Distribution Width 13.0 10.0-14.5 % Platelet Count 267 130-400 10^3/uL Mean Platelet Volume 9.8 7.4-10.4 FL Neutrophils (%) (Auto) 64 42-75 % Lymphocytes (%) (Auto) 27 12-44 % Monocytes (%) (Auto) 6 0-12 % Eosinophils (%) (Auto) 3 0-10 % Basophils (%) (Auto) 1 0-10 % Neutrophils # (Auto) 6.2 1.8-7.8 X 10^3 Lymphocytes # (Auto) 2.6 1.0-4.0 X 10^3 Monocytes # (Auto) 0.5 0.0-1.0 X 10^3 Eosinophils # (Auto) 0.3 0.0-0.3 10^3/uL Basophils # (Auto) 0.1 0.0-0.1 10^3/uL Sodium Level 137 135-145 MMOL/L Potassium Level 3.6 3.6-5.0 MMOL/L Chloride Level 103 98-107 MMOL/L Carbon Dioxide Level 21 21-32 MMOL/L Anion Gap 13 5-14 MMOL/L Blood Urea Nitrogen 10 7-18 MG/DL Creatinine 0.84 0.60-1.30 MG/DL Estimat Glomerular Filtration Rate > 60 BUN/Creatinine Ratio 12 Glucose Level 212 H 70-105 MG/DL Lactic Acid Level 2.87 *H 2.79 *H 0.50-2.00 MMOL/L Calcium Level 9.2 8.5-10.1 MG/DL Corrected Calcium 9.4 8.5-10.1 MG/DL Magnesium Level 1.7 1.6-2.4 MG/DL Total Bilirubin 0.2 0.1-1.0 MG/DL Aspartate Amino Transf (AST/SGOT) 29 5-34 U/L Alanine Aminotransferase (ALT/SGPT) 24 0-55 U/L Alkaline Phosphatase 88 40-136 U/L Total Protein 6.8 6.4-8.2 GM/DL Albumin 3.8 3.2-4.5 GM/DL Amylase Level 29 25-125 U/L Lipase 8 8-78 U/L Urine Color YELLOW Urine Clarity CLEAR Urine pH 6.0 5-9 Urine Specific [place] 1.020 1.016-1.022 Urine Protein NEGATIVE NEGATIVE Urine Glucose (UA) 1+ H NEGATIVE Urine Ketones NEGATIVE NEGATIVE Urine Nitrite NEGATIVE NEGATIVE Urine Bilirubin NEGATIVE NEGATIVE Urine Urobilinogen 0.2 < = 1.0 MG/DL Urine Leukocyte Esterase TRACE H NEGATIVE Urine RBC (Auto) NEGATIVE NEGATIVE Urine RBC NONE /HPF Urine WBC 5-10 H /HPF Urine Squamous Epithelial Cells 0-2 /HPF Urine Crystals NONE /LPF Urine Bacteria TRACE /HPF Urine Casts NONE /LPF Urine Mucus SMALL H /LPF Urine Culture Indicated NO My Orders Orders - PETER ASHLEY DO Ed Iv/Invasive Line Start (06/23/19 18:01) Amylase (06/23/19 18:01) Cbc With Automated Diff (06/23/19 18:01) Comprehensive Metabolic Panel (06/23/19 18:01) Lactic Acid Analyzer (06/23/19 18:01) Lipase (06/23/19 18:01) Magnesium (06/23/19 18:01) Ua Culture If Indicated (06/23/19 18:01) Blood Culture (06/23/19 18:01) Isolation Central Supply Req (06/23/19 18:01) Ct Abdomen/Pelvis W (06/23/19 19:11) Pelvis With Left Hip 2-3 Views (06/23/19 19:11) Iohexol Injection (Omnipaque 350 Mg/Ml 1 (06/23/19 19:45) Received Contrast (Hold Metformin- Contr (06/23/19 19:45) Ns (Ivpb) (Sodium Chloride 0.9% Ivpb Bag (06/23/19 19:45) Enoxaparin Injection (Lovenox Injection) (06/23/19 21:00) Ceftriaxone For Iv Use (Rocephin For I (06/23/19 21:00) Water (Sterile) For Injection (Sterile W (06/23/19 21:18) Ceftriaxone For Iv Use (Rocephin For I (06/23/19 21:18) Medications Given in ED Current Medications Medications Dose Ordered Sig/Alannah Route Start Time Stop Time Status Last Admin Dose Admin Ceftriaxone Sodium 1000 mg/ Sterile Water 10 ml @ 200 mls/hr ONCE ONCE IV 06/23/19 21:00 06/23/19 21:42 DC 06/23/19 21:28 200 MLS/HR Enoxaparin Sodium 100 mg ONCE ONCE SC 06/23/19 21:00 06/23/19 21:42 DC 06/23/19 21:28 100 MG Iohexol 100 ml ONCE ONCE IV 06/23/19 19:45 06/23/19 19:46 DC 06/23/19 19:57 100 ML Sodium Chloride 100 ml ONCE ONCE IV 06/23/19 19:45 06/23/19 19:46 DC 06/23/19 19:58 100 ML Vital Signs/I&O 06/23/19 06/23/19 17:30 21:41 Temp 36.6 Pulse 84 75 Resp 20 20 B/P (MAP) 149/88 (108) 147/68 Pulse Ox 97 94 O2 Delivery Room Air Blood Pressure Mean: 108 Progress Progress Note : Progress Note UNEVENTFUL ER STAY PT PASSED ONE SMALL MARBLE-SIZED HARD STOOL DURING ER STAY ( PT CLAIMS--"EVERY TIME I EAT OR DRINK IT JUST GOES RIGHT THROUGH ME-I CAN'T BE CONSTIPATED" ) NO ULTRASOUND AVAILABILITY AT THIS TIME. WILL ARRANGE FOR OUTPATIENT ULTRASOUND AND GIVE DOSE OF LOVENOX TONIGHT, AND HAVE PT FOLLOW UP WITH DR. REVELES FOR RESULTS AT DISMISSAL, PT NOW STATES THAT SHE WAS JUST FINISHED CIPRO LAST WEEK, AND FINISHED LEVAQUIN YESTERDAY--FOR UTI. Diagnostic Imaging Comments XRAYS PELVIS AND LEFT HIP--PER RADIOLOGIST REPORT AT 2032 FINDINGS: The pelvis demonstrates no evidence for acute fracture. The pectineal lines and obturator rings are maintained. Pubic symphysis with very slight unchanged asymmetry. SI joints are unremarkable. Images of the hip demonstrate no evidence for acute fracture. Alignment is anatomic. The femoral head acetabular relationship is unremarkable. The bony trabecular pattern is intact. IMPRESSION: Negative examination of the pelvis and left hip. FINDINGS: Pacemaker lead tip at the cardiac apex. Lung bases are clear of infiltrate. No effusion. Mild diffuse hepatic steatosis. Spleen, pancreas and bilateral adrenal glands unremarkable. Gallbladder absent. Kidneys with normal enhancement. Nonobstructing right renal stone. Stomach collapsed. Small bowel does contain some feces may reflective of underlying delayed small bowel transit time. Mild severity fecal retention throughout the colon. No obstruction or definitive inflammation. No abdominal ascites or free air. There is a prominent aortoiliac wall calcification, nonaneurysmal. Major branches are patent proximally. The inferior vena cava appears of normal density. Urinary bladder unremarkable. Uterus is absent. Previous kyphoplasty changes at T12 level. Lumbar spinal alignment mild rightward curvature. The pelvis and bilateral hips appearing unremarkable. No significant hernia wall defect. A few small inguinal lymph nodes. IMPRESSION: 1. Negative for acute abnormality of the abdomen or pelvis. 2. Hepatic steatosis. 3. Non-obstructing small right renal stone. 4. Mild severity fecalized small bowel contents and stool retention. May reflect underlying delayed small bowel transit time. No obstructive appearance. CT ABDOMEN/PELVIS--PER RADIOLOGIST REPORT AT 2047 Reviewed: Reviewed by Me Departure Impression Primary Impression: Urinary tract infection Additional Impressions: Pain and swelling of left lower leg Left groin pain Disposition: HOME, SELF-CARE Condition: Stable Departure-Patient Inst. Referrals: NANNETTE REVELES DO (PCP/Family) Primary Care Physician Patient Instructions: Dependent Edema (DC), Hip Pain (DC), Urinary Tract Infection, Adult (DC) Add. Discharge Instructions: CONTINUE YOUR REGULAR MEDICATIONS PRESCRIBED TAKE FULL ASPIRIN 325 MG DAILY, UNTIL YOU SEE DR. REVELES CALL IN AM TO ARRANGE FOR OUTPATIENT ULTRASOUND OF YOUR LEG FOLLOW UP WITH DR. REVELES IN 1-2 DAYS FOR FURTHER CARE All discharge instructions reviewed with patient and/or family. Voiced understanding. Scripts Nitrofurantoin Monohyd/M-Cryst (Macrobid 100 mg Capsule) 100 Mg Capsule 1 TAB PO BID, #30 CAP Prov: PETER ASHLEY DO 06/23/19 PETER ASHLEY DO Jun 23, 2019 18:12
[2019-06-23 18:25] LABS: BASOPHILS # (AUTO) 0.1 10^3/uL (0.0-0.1); BASOPHILS % (AUTO) 1 % (0-10); EOSINOPHILS # (AUTO) 0.3 10^3/uL (0.0-0.3); EOSINOPHILS % (AUTO) 3 % (0-10); HEMATOCRIT 41 % (35-52); HEMOGLOBIN 13.2 G/DL (11.5-16.0); LYMPHOCYTES # (AUTO) 2.6 X 10^3 (1.0-4.0); LYMPHOCYTES % (AUTO) 27 % (12-44); MEAN CORPUSCULAR HEMOGLOBIN 29 PG (25-34); MEAN CORPUSCULAR HGB CONC 32 G/DL (32-36); MEAN CORPUSCULAR VOLUME 89 FL (80-99); MEAN PLATELET VOLUME 9.8 FL (7.4-10.4); MONOCYTES # (AUTO) 0.5 X 10^3 (0.0-1.0); MONOCYTES % (AUTO) 6 % (0-12); NEUTROPHILS # (AUTO) 6.2 X 10^3 (1.8-7.8); NEUTROPHILS % (AUTO) 64 % (42-75); PLATELET COUNT 267 10^3/uL (130-400); WHITE BLOOD COUNT 9.6 10^3/uL (4.3-11.0)
[2019-06-23 18:36] LABS: ALBUMIN 3.8 GM/DL (3.2-4.5); CHLORIDE 103 MMOL/L (98-107); POTASSIUM 3.6 MMOL/L (3.6-5.0); SODIUM 137 MMOL/L (135-145)
[2019-06-23 18:37] LABS: CALCIUM 9.2 MG/DL (8.5-10.1)
[2019-06-23 18:38] LABS: GLUCOSE 212 MG/DL (70-105); TOTAL PROTEIN 6.8 GM/DL (6.4-8.2)
[2019-06-23 18:39] LABS: CARBON DIOXIDE 21 MMOL/L (21-32)
[2019-06-23 18:40] LABS: BILIRUBIN,TOTAL 0.2 MG/DL (0.1-1.0)
[2019-06-23 18:42] LABS: ALKALINE PHOSPHATASE 88 U/L (40-136); CREATININE SERUM 0.84 MG/DL (0.60-1.30); GFR ESTIMATED > 60
[2019-06-23 18:43] LABS: BUN/CREATININE RATIO 12
[2019-06-23 18:45] LABS: ALANINE AMINOTRANSFERASE 24 U/L (0-55); MAGNESIUM 1.7 MG/DL (1.6-2.4)
[2019-06-23 18:46] LABS: LIPASE 8 U/L (8-78)
--- NOTE | 2019-06-23 18:58 | NUR ---
PT UP TO BATHROOM PER W/C PT HAD VERY VERY SMALL FORMED STOOL, NOT ENOUGH FOR A CULTURE
[2019-06-23 19:04] LABS: BILIRUBIN,URINE NEGATIVE (NEGATIVE); CLARITY,URINE CLEAR; COLOR,URINE YELLOW; GLUCOSE, URINE (UA) 1+ (NEGATIVE); KETONES,URINE NEGATIVE (NEGATIVE); LEUKOCYTE ESTERASE ,URINE TRACE (NEGATIVE); NITRITE,URINE NEGATIVE (NEGATIVE); PROTEIN,URINE NEGATIVE (NEGATIVE)
[2019-06-23 19:18] LABS: BACTERIA,URINE TRACE /HPF; SQUAMOUS EPITHELIAL CELL,UR 0-2 /HPF
[2019-06-23 19:19] LABS: AMYLASE 29 U/L (25-125)
[2019-06-23] MEDS ORDERED: IOHEXOL 350 MG/ML 100 ML (OMNIPAQUE 350) VIAL IV ONE (19:45)
[2019-06-23] MEDS ORDERED: HOLD METFORMIN - RECEIVED CONTRAST 20 ML VIAL IV SCH (19:45)
[2019-06-23] MEDS ORDERED: NS 100 ML (IVPB) BAG IV ONE (19:45)
--- NOTE | 2019-06-23 19:59 | Diagnostic Imaging Report ---
INDICATION: Left hip and groin pain. TECHNIQUE: AP pelvis along with 2 views left hip, 7:50 PM CORRELATION STUDY: 05/08/2019 FINDINGS: The pelvis demonstrates no evidence for acute fracture. The pectineal lines and obturator rings are maintained. Pubic symphysis with very slight unchanged asymmetry. SI joints are unremarkable. Images of the hip demonstrate no evidence for acute fracture. Alignment is anatomic. The femoral head acetabular relationship is unremarkable. The bony trabecular pattern is intact. IMPRESSION: Negative examination of the pelvis and left hip. Dictated by: Dictated on workstation # [id number]
--- NOTE | 2019-06-23 20:34 | Diagnostic Imaging Report ---
PROCEDURE: CT abdomen and pelvis with contrast. TECHNIQUE: Multiple contiguous axial images were obtained through the abdomen and pelvis after administration of intravenous contrast. Auto Exposure Controls were utilized during the CT exam to meet ALARA standards for radiation dose reduction. INDICATION: Left hip and groin pain extending to the foot. Left foot is swollen. CORRELATION STUDY: CT abdomen and pelvis 12/24/2018 FINDINGS: Pacemaker lead tip at the cardiac apex. Lung bases are clear of infiltrate. No effusion. Mild diffuse hepatic steatosis. Spleen, pancreas and bilateral adrenal glands unremarkable. Gallbladder absent. Kidneys with normal enhancement. Nonobstructing right renal stone. Stomach collapsed. Small bowel does contain some feces may reflective of underlying delayed small bowel transit time. Mild severity fecal retention throughout the colon. No obstruction or definitive inflammation. No abdominal ascites or free air. There is a prominent aortoiliac wall calcification, nonaneurysmal. Major branches are patent proximally. The inferior vena cava appears of normal density. Urinary bladder unremarkable. Uterus is absent. Previous kyphoplasty changes at T12 level. Lumbar spinal alignment mild rightward curvature. The pelvis and bilateral hips appearing unremarkable. No significant hernia wall defect. A few small inguinal lymph nodes. IMPRESSION: 1. Negative for acute abnormality of the abdomen or pelvis. 2. Hepatic steatosis. 3. Non-obstructing small right renal stone. 4. Mild severity fecalized small bowel contents and stool retention. May reflect underlying delayed small bowel transit time. No obstructive appearance. Dictated by: Dictated on workstation # [id number]
[2019-06-23] MEDS ORDERED: ENOXAPARIN 100 MG/1 ML (LOVENOX) SYR SC ONE (21:00)
[2019-06-23] MEDS ORDERED: cefTRIAXone FOR IV USE 1,000 MG in WATER (STERILE) FOR INJECTION 10 ML IV ONE (21:00)
[2019-06-23] MEDS ORDERED: NITR-65 PO (21:05)
[2019-06-23] MEDS ORDERED: WATER (STERILE) FOR INJECTION 10 ML ONE (21:18)
[2019-06-23] MEDS ORDERED: cefTRIAXone 1,000 MG IV (ROCEPHIN) VIAL ONE (21:18)
[2019-06-23 21:41] VITALS: BP 147/68
== END 2019-06-23 21:42 | disposition home or self-care (01) ==
LOC: EDUNIT# 17:29 → ER 17:31
DX: N39.0 Urinary tract infection, site not specified (principal); M79.605 Pain in left leg; M79.89 Other specified soft tissue disorders; M54.12 Radiculopathy, cervical region; G25.81 Restless legs syndrome; M54.9 Dorsalgia, unspecified; G89.29 Other chronic pain; J44.9 Chronic obstructive pulmonary disease, unspecified; G47.30 Sleep apnea, unspecified; I25.10 Atherosclerotic heart disease of native coronary artery without angina pectoris; E78.00 Pure hypercholesterolemia, unspecified; I10 Essential (primary) hypertension; E11.40 Type 2 diabetes mellitus with diabetic neuropathy, unspecified; G43.909 Migraine, unspecified, not intractable, without status migrainosus; Z87.442 Personal history of urinary calculi; K21.9 Gastro-esophageal reflux disease without esophagitis; Z87.19 Personal history of other diseases of the digestive system; K58.9 Irritable bowel syndrome, unspecified; M19.91 Primary osteoarthritis, unspecified site; M79.7 Fibromyalgia; F41.9 Anxiety disorder, unspecified; F32.9 Major depressive disorder, single episode, unspecified; Z95.810 Presence of automatic (implantable) cardiac defibrillator; Z79.4 Long term (current) use of insulin; Z79.899 Other long term (current) drug therapy; Z98.1 Arthrodesis status
CPT/HCPCS: 36415; 74177; 80053; 81000; 82150; 83605; 83690; 83735; 85025; 87040

== ENCOUNTER 2019-06-24 15:12 | Inpatient (IN) | payer MEDICARE ==
[~2019-06-24] VITALS: Ht 160 cm; Wt 100.4 kg
[~2019-06-24 15:12] MED LIST changes: -ASPI-983 PO; -CHOL500044 PO; -DILT240C91 PO; -DIPH25CA79 PO; -ESCI10TA PO; -GBPN600T PO; -INSN1U SQ; -MAGN400T39 PO; -METO-333 PO
[2019-06-24] MEDS ORDERED: NS IV 1000 ML 1,000 ML IV SCH (15:25)
[2019-06-24] MEDS ORDERED: ASPIRIN 81 MG CHEW (CHILDREN'S ASA) PO ONE (15:30)
[2019-06-24] MEDS ORDERED: ENOXAPARIN 100 MG/1 ML (LOVENOX) SYR SC ONE (15:30)
[2019-06-24] MEDS ORDERED: NS IV 500 ML 500 ML IV ONE (15:30)
--- NOTE | 2019-06-24 15:39 | ED Respiratory ---
General Chief Complaint: Respiratory Problems Stated Complaint: SOB Nursing Triage Note: PT AMBULATE TO ROOM 10 WITH SOB. PT WAS SEEN IN THIS ED YESTEDAY FOR SAME C/O. PT HAS CHRONIC HX OF SOB. Source: patient Exam Limitations: no limitations History of Present Illness Date Seen by Provider: Jun 24, 2019 Time Seen by Provider: 15:09 Initial Comments Patient presents to ER by private conveyance from home with chief complaint of shortness of breath progressively worsening over the past several days. She came in last night and was worked up and had concerned because she was having pain in her left thigh and lower extremity that she may be having a blood clot. She is no history of blood clots. She supposed to be on blood thinners by Dr. Cerda however she cannot afford them so she only takes aspirin daily. She called Dr. Reid's office today after getting her ultrasound done outpatient this morning to request follow-up and was instructed because of her increased shortness of breath on exertion to come to the ER for further evaluation. She had some chest pain in the middle of her chest yesterday evening and today is having a little bit of pain under her left breast in her ribs on deep inspiration. She's having occasional cough but no fevers or chills. No sick contacts. No known COVID-19 contacts. She had a heart catheter years ago that was negative. She has no history of stents or PR. She did take her metoprolol 25 mg tartrate this morning however she did not take the aspirin yet. She has a history of diabetes and COPD. She has taken 2 sets of her DuoNeb this morning with her last one being about 2 hours ago. She denies any wheezing or productive cough. She is insulin- dependent diabetic. She denies nausea sweats, fevers, chills. History of atrial fibrillation. Echocardiogram from April 2018 shows moderate concentric left ventricular hypertrophy and an EF of 65-70%. Chronic body pains and fibromyalgia and migraine headaches. Dual-chamber defibrillator. Cardiac catheterization 2010 and an MPI November 2017 showed minor coronary disease without significant myocardial infarction. Diabetes type 2 on insulin and metformin. Allergies and Home Medications Allergies Coded Allergies: Penicillins (Unverified Allergy, Severe, Pt has received Cefepime & Ceftriaxone in the past w/o issue, 07/21/18) SWELLING, RASH, ITCHING Sulfa (Sulfonamide Antibiotics) (Verified Allergy, Mild, 07/21/18) RASH aspirin (Verified Adverse Reaction, Mild, ASPIRIN SENSITIVE, 07/21/18) UPSET STOMACH sumatriptan (Verified Adverse Reaction, Mild, PALPITATIONS, 07/21/18) IRRITABLE Home Medications Acetaminophen 650 Mg Tablet.er, 650 MG PO Q4H Prescribed by: NANNETTE REID on 05/01/18 104 Apixaban 5 Mg Tablet, 5 MG PO Q12H Prescribed by: YASMANI HAMILTON on 05/01/18 09 Buspirone HCl 5 Mg Tablet, 5 MG PO TID, (Reported) Diltiazem HCl 240 Mg Cap.er.24h, 240 MG PO DAILY Prescribed by: YASMANI HAMILTON on 05/01/18 09 Doxepin HCl 10 Mg Capsule, 20 MG PO HS Prescribed by: NANNETTE REID on 05/13/18 171 Doxycycline Hyclate 100 Mg Tablet, 100 MG PO BID Prescribed by: CHERRIE CHURCH on 04/25/19 09 Hydrocodone Bit/Acetaminophen 1 Tab Tab, 1 TAB PO Q4H PRN for PAIN-MODERATE Prescribed by: NANNETTE REID on 05/01/18 104 Insulin Determir 1,000 Units/10 Ml Soln, 50 UNIT SQ DAILY Prescribed by: NANNETTE REID on 05/01/18 104 Ipratropium/Albuterol Sulfate 3 Ml Ampul.neb, 3 ML NEB Q6H PRN for SHORTNESS OF BREATH, (Reported) Levofloxacin 750 Mg Tablet, 750 MG PO DAILY Prescribed by: BRADY BROWN on 05/22/182035 Lorazepam 0.5 Mg Tablet, 0.5 MG PO TID PRN for ANXIETY Prescribed by: NANNETTE REID on 05/01/18 104 Magnesium Oxide 400 Mg Tablet, 400 MG PO BIDPC Prescribed by: YASMANI HAMILTON on 05/01/18 09 Melatonin 3 Mg Tablet, 6 MG PO HS Prescribed by: NANNETTE REID on 05/01/18 104 Metformin HCl 500 Mg Tab.er.24h, 1,000 MG PO BID TAKE 2 (500MG) TABS Prescribed by: NANNETTE REID on 05/01/18 104 Metoprolol Tartrate 100 Mg Tablet, 100 MG PO BID, (Reported) Miconazole Nitrate 90 Gm Powder, 0 GM TOP BID to groin twice a day for 2 weeks Prescribed by: NANNETTE REID on 05/13/18 1709 Nitrofurantoin Monohyd/M-Cryst 100 Mg Capsule, 100 MG PO BID Prescribed by: PETER ASHLEY on 04/23/19 0046 Nitrofurantoin Monohyd/M-Cryst 100 Mg Capsule, 1 TAB PO BID Prescribed by: PETER ASHLEY on 06/23/19 2105 Omeprazole 40 Mg Capsule.dr, 40 MG PO BID, (Reported) Ondansetron 4 Mg Tab.rapdis, 4 MG PO Q6H PRN for NAUSEA/VOMITING Prescribed by: ISRAEL ODELL on 12/25/18 1247 Phenazopyridine HCl 200 Mg Tablet, 1 TAB PO TID Prescribed by: PETER ASHLEY on 04/23/19 0046 Pramipexole Di-HCl 1 Mg Tablet, 1 MG PO 1700, (Reported) Prednisone 20 Mg Tab, 40 MG PO DAILY Prescribed by: CHERRIE CHURCH on 04/25/19 0909 Promethazine/Phenyleph/Codeine 118 Ml Syrup, 5 ML PO Q6H PRN for cough Prescribed by: CHERRIE CHURCH on 04/25/19 0910 Sennosides 8.6 Mg Tablet, 8.6 MG PO BID Prescribed by: NANNETTE REID on 05/01/18 1041 Patient Home Medication List Home Medication List Reviewed: Yes Review of Systems Review of Systems Constitutional: No chills, No diaphoresis, No fever, No malaise EENTM: No ear discharge, No ear pain Respiratory: No cough; short of breath Cardiovascular: No chest pain, No edema, No Hx of Intervention, No vascular heart diseas Gastrointestinal: No abdominal pain, No jaundice Genitourinary: No discharge, No dysuria : No Musculoskeletal: No back pain, No joint pain Skin: No pruritus, No rash Psychiatric/Neurological: Denies Headache, Denies Numbness All Other Systems Reviewed Negative Unless Noted: Yes Past Pskfwee-Sgdynw-Yfvzzx Hx Patient Social History Alcohol Use: Denies Use Recreational Drug Use: No Smoking Status: Never a Smoker 2nd Hand Smoke Exposure: Yes Recent Foreign Travel: No Contact w/Someone Who Travel: No Recent Infectious Disease Expo: No Recent Hopitalizations: No Physical Abuse: No Sexual Abuse: No Mistreated: No Fear: No Immunizations Up To Date Tetanus Booster (TDap): Unknown PED Vaccines UTD: No Date of Pneumonia Vaccine: Dec 02, 2017 Date of Influenza Vaccine: Dec 31, 2018 Seasonal Allergies Seasonal Allergies: Yes Past Medical History Surgeries: Yes (LAP CORNELIUS; C-SPINE FUSION/DISCECTOMY C5-C6 ) Abdominal, Appendectomy, Cardiac, Defibrillator, Eye Surgery, Gallbladder, Hysterectomy, Oophorectomy, Orthopedic, Pacemaker, Tonsillectomy Respiratory: Yes (O2 AT HS AND PRN) Asthma, Pneumonia, Chronic Bronchitis, Sleep Apnea, COPD Currently Using CPAP: No Currently Using BIPAP: No Cardiac: Yes (PACEMAKER/DEFIBRILLATOR;CARDIAC ARREST DURING ENT SURGERY;PSVT/PALPITATIONS) Coronary Artery Disease, High Cholesterol, Hypertension, Irregular Heartbeat Neurological: Yes (PERIPHERAL NEUROPATHY HANDS/FEET; CHRONIC HEADACHES) Headaches /Migraines, Neuropathy 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 Disorders: No Female 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 Disorders: Denies [employer] History: Hysterectomy, 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 PAIN) Degenerate Disk Disease, Arthritis, Fibromyalgia, Chronic Back Pain, Fractures Endocrine: Yes Diabetes, Insulin dep, Diabetes, Non-Insulin dep HEENT: Yes (S/P BILATERAL CATARACT SURGERY + YAG PROCEDURE;ENT SURG WITH CARDIAC ARREST) Cataract Loss of Vision: Denies Hearing Impairment: Denies Cancer: No Psychosocial: Yes Anxiety, Depression Integumentary: Yes (NLEIA INTERTRIGO) Pruritis Blood Disorders: No Adverse Reaction/Blood Tranf: No Family Medical History Alzheimer's disease 19 FATHER Cardiovascular disease 19 FATHER 19 MOTHER Completed stroke 19 MOTHER Hypertension 19 FATHER 19 MOTHER Myocardial infarction 19 FATHER 19 MOTHER No Family History of: Diabetes mellitus PSH: -T12 KYPHOPLASTY -C5-C6 CERVICAL DISCECTOMY WITH FUSION 04/2018 -LAP CORNELIUS FUNDOPLICATION -EGD'S/ESOPHAGEAL DILATIONS/COLONOSCOPIES/POLYPECTOMIES -PACEMAKER/DEFIBRILLATOR -HYSTERECTOMY/BSO -CHOLECYSTECTOMY -APPENDECTOMY -TONSILLECTOMY -OVARIAN CYST SURGERIES X 4 -CYST FROM BACK REMOVED -ENT SURGERY PMH: -CHRONIC NECK PAIN WITH CERVICAL RADICULOPATHY -RESTLESS LEG SYNDROME -CHRONIC BACK PAIN -T12 COMPRESSION WITH KYPHOPLASTY Physical Exam Vital Signs - First Documented 06/24/19 15:22 Temp 37.4 Pulse 121 Resp 18 B/P (MAP) 131/100 (110) O2 Delivery Room Air Capillary Refill : Less Than 3 Seconds Height: 5'4.00" Weight: 215lbs. 0oz. 97.246930fe; 39.00 BMI Method:Stated General Appearance: WD/WN, no apparent distress Focused Exam Sepsis Stage: Sepsis Possible Source: Genitouriary Lactate Level 06/24/19 15:48: Lactic Acid Level 3.51*H 06/24/19 17:42: Lactic Acid Level 1.64 Time of Focused Exam: 19:10 Respiratory: Lungs Clear, Normal Breath Sounds, Accessory Muscle Use, Respiratory Distress (rr 28) Cardiovascular: Regular Rate, Rhythm, Normal Peripheral Pulses Capillary Refill: Less Than 3 Seconds Peripheral Pulses: 2+ Dorsalis Pedis (R), 2+ Left Dors-Pedis (L) Skin: normal color, warm/dry Lactic Acid Level Laboratory Tests Test 06/24/19 15:48 06/24/19 17:42 Lactic Acid Level 3.51 MMOL/L (0.50-2.00) *H 1.64 MMOL/L (0.50-2.00) Within 3hrs of presentation: Admin fluids, Admin ABX, Blood cultures prior to ABX's, Focus exam, Lactate level Procedures/Interventions Date of ETT Placement: Apr 21, 2018 Time of ETT Placement: 1743 Progress/Results/Core Measures Suspected Sepsis Recent Fever Within 48 Hours: No Infection Criteria Present: None New/Unexplained Altered Menta: No Sepsis Screen: No Definite Risk SIRS Temperature: Pulse: 121 Respiratory Rate: 18 Laboratory Tests 06/24/19 15:48: White Blood Count 12.2H Blood Pressure 131 /100 Mean: 110 06/24/19 15:48: Lactic Acid Level 3.51*H 06/24/19 17:42: Lactic Acid Level 1.64 Laboratory Tests 06/24/19 15:48: Creatinine 0.88, INR Comment 0.9, Platelet Count 317, Total Bilirubin 0.3 Results/Orders Lab Results Laboratory Tests Test 06/24/19 15:48 06/24/19 16:25 06/24/19 17:42 06/24/19 18:03 Range/Units White Blood Count 12.2 H 4.3-11.0 10^3/uL Red Blood Count 4.70 4.35-5.85 10^6/uL Hemoglobin 13.5 11.5-16.0 G/DL Hematocrit 41 35-52 % Mean Corpuscular Volume 88 80-99 FL Mean Corpuscular Hemoglobin 29 25-34 PG Mean Corpuscular Hemoglobin Concent 33 32-36 G/DL Red Cell Distribution Width 13.3 10.0-14.5 % Platelet Count 317 130-400 10^3/uL Mean Platelet Volume 9.7 7.4-10.4 FL Neutrophils (%) (Auto) 73 42-75 % Lymphocytes (%) (Auto) 19 12-44 % Monocytes (%) (Auto) 6 0-12 % Eosinophils (%) (Auto) 1 0-10 % Basophils (%) (Auto) 0 0-10 % Neutrophils # (Auto) 8.9 H 1.8-7.8 X 10^3 Lymphocytes # (Auto) 2.3 1.0-4.0 X 10^3 Monocytes # (Auto) 0.7 0.0-1.0 X 10^3 Eosinophils # (Auto) 0.1 0.0-0.3 10^3/uL Basophils # (Auto) 0.0 0.0-0.1 10^3/uL Prothrombin Time 13.0 12.2-14.7 SEC INR Comment 0.9 0.8-1.4 Activated Partial Thromboplast Time 24 24-35 SEC D-Dimer 0.64 H 0.00-0.49 UG/ML Sodium Level 137 135-145 MMOL/L Potassium Level 3.5 L 3.6-5.0 MMOL/L Chloride Level 102 98-107 MMOL/L Carbon Dioxide Level 21 21-32 MMOL/L Anion Gap 14 5-14 MMOL/L Blood Urea Nitrogen 8 7-18 MG/DL Creatinine 0.88 0.60-1.30 MG/DL Estimat Glomerular Filtration Rate > 60 BUN/Creatinine Ratio 9 Glucose Level 176 H 70-105 MG/DL Lactic Acid Level 3.51 *H 1.64 0.50-2.00 MMOL/L Calcium Level 9.5 8.5-10.1 MG/DL Corrected Calcium 9.5 8.5-10.1 MG/DL Magnesium Level 1.7 1.6-2.4 MG/DL Total Bilirubin 0.3 0.1-1.0 MG/DL Aspartate Amino Transf (AST/SGOT) 28 5-34 U/L Alanine Aminotransferase (ALT/SGPT) 25 0-55 U/L Alkaline Phosphatase 98 40-136 U/L Lactate Dehydrogenase 238 H 125-220 U/L Myoglobin 88.3 10.0-92.0 NG/ML Troponin I < 0.028 <0.028 NG/ML C-Reactive Protein High Sensitivity 1.41 H 0.00-0.50 MG/DL B-Type Natriuretic Peptide < 10.0 <100.0 PG/ML Total Protein 7.2 6.4-8.2 GM/DL Albumin 4.0 3.2-4.5 GM/DL Urine Color YELLOW Urine Clarity CLEAR Urine pH 6.0 5-9 Urine Specific [place] 1.010 L 1.016-1.022 Urine Protein NEGATIVE NEGATIVE Urine Glucose (UA) NEGATIVE NEGATIVE Urine Ketones 1+ H NEGATIVE Urine Nitrite NEGATIVE NEGATIVE Urine Bilirubin NEGATIVE NEGATIVE Urine Urobilinogen 0.2 < = 1.0 MG/DL Urine Leukocyte Esterase 1+ H NEGATIVE Urine RBC (Auto) NEGATIVE NEGATIVE Urine RBC NONE /HPF Urine WBC 2-5 /HPF Urine Crystals PRESENT H /LPF Urine Amorphous Sediment FEW AURY URATES H /LPF Urine Bacteria TRACE /HPF Urine Casts NONE /LPF Urine Mucus NEGATIVE /LPF Urine Culture Indicated NO Urine Opiates Screen NEGATIVE NEGATIVE Urine Oxycodone Screen NEGATIVE NEGATIVE Urine Methadone Screen NEGATIVE NEGATIVE Urine Propoxyphene Screen NEGATIVE NEGATIVE Urine Barbiturates Screen NEGATIVE NEGATIVE Ur Tricyclic Antidepressants Screen NEGATIVE NEGATIVE Urine Phencyclidine Screen NEGATIVE NEGATIVE Urine Amphetamines Screen NEGATIVE NEGATIVE Urine Methamphetamines Screen NEGATIVE NEGATIVE Urine Benzodiazepines Screen POSITIVE H NEGATIVE Urine Cocaine Screen NEGATIVE NEGATIVE Urine Cannabinoids Screen NEGATIVE NEGATIVE Blood Gas Puncture Site LR Blood Gas Patient Temperature 37.4 Arterial Blood pH 7.48 H 7.37-7.43 Arterial Blood Partial Pressure CO2 32 L 35-45 MMHG Arterial Blood Partial Pressure O2 75 L 79-93 MMHG Arterial Blood HCO3 24 23-27 MMOL/L Arterial Blood Total CO2 24.7 21.0-31.0 MMOL/L Arterial Blood Oxygen Saturation 96 94-100 % Arterial Blood Base Excess 0.6 -2.5-2.5 MMOL/L Manjit Test YES-POS Blood Gas Ventilator Setting NO Blood Gas Inspired Oxygen RA Test 06/24/19 18:06 06/24/19 19:10 Range/Units Carboxyhemoglobin 3.2 H 0.5-2.5 % My Orders Orders - JOSE R,ISRAEL J Cbc With Automated Diff (06/24/19:) Magnesium (06/24/19:) Chest 1 View, Ap/Pa Only (06/24/19:) Ekg Tracing (06/24/19:) Comprehensive Metabolic Panel (06/24/19:) Myoglobin Serum (06/24/19:) Protime With Inr (06/24/19:) Partial Thromboplastin Time (06/24/19:) O2 (06/24/19:) Monitor-Rhythm Ecg Trace Only (06/24/19:) Lipid Panel (06/25/19 06:00) Ed Iv/Invasive Line Start (06/24/19 15:25) BNP (06/24/19:) Troponin I (06/24/19:) Aspirin Chewable Tablet (Baby Aspirin Ch (06/24/19 15:30) Ed Iv/Invasive Line Start (06/24/19 15:25) Ns Iv 1000 Ml (Sodium Chloride 0.9%) (06/24/19 15:25) Hs C Reactive Protein (06/24/19:25) Enoxaparin Injection (Lovenox Injection) (06/24/19 15:30) Blood Culture (06/24/19 15:30) Ed Iv/Invasive Line Start (06/24/19 15:30) Ed Iv/Invasive Line Start (06/24/19 15:30) Vital Signs Adult Sepsis Patie Q15M (06/24/19 15:30) O2 (06/24/19 15:30) Remove Rings In Anticipation O (06/24/19 15:30) Lactic Acid Analyzer (06/24/19 15:30) Ed Iv/Invasive Line Start (06/24/19 15:30) Ns Iv 500 Ml (Sodium Chloride 0.9%) (06/24/19 15:30) Fibrin Degradation Products (06/24/19 15:48) Ct Angio Chest W (06/24/19 16:21) Iohexol Injection (Omnipaque 350 Mg/Ml 1 (06/24/19 16:30) Received Contrast (Hold Metformin- Contr (06/24/19 16:30) Ns (Ivpb) (Sodium Chloride 0.9% Ivpb Bag (06/24/19 16:30) Arterial Blood Gas (06/24/19 17:52) Carboxyhemoglobin (06/24/19 17:52) Ua Culture If Indicated (06/24/19 18:43) Drug Screen Stat (Urine) (06/24/19 18:43) Influenza A And B Antigens (06/24/19 18:43) Procalcitonin (Pct) (06/24/19 18:43) LDH (06/24/19 18:43) Coronavirus Sars-Cov-2 So 2019 (06/24/19 18:43) Covid-19 Suspect Update (06/24/19 18:43) Arterial Blood Draw (06/24/19 ) Ceftriaxone For Iv Use (Rocephin For I (06/24/19 19:15) Medications Given in ED Current Medications Medications Dose Ordered Sig/Alannah Route Start Time Stop Time Status Last Admin Dose Admin Aspirin 324 mg ONCE ONCE PO 06/24/19 15:30 06/24/19 15:31 DC 06/24/19 15:44 324 MG Enoxaparin Sodium 100 mg ONCE ONCE SC 06/24/19 15:30 06/24/19 15:31 DC 06/24/19 15:44 100 MG Iohexol 100 ml ONCE ONCE IV 06/24/19 16:30 06/24/19 16:31 DC 06/24/19 16:59 75 ML Sodium Chloride 100 ml ONCE ONCE IV 06/24/19 16:30 06/24/19 16:31 DC 06/24/19 16:59 100 ML Sodium Chloride 500 ml @ 0 mls/hr Q0M ONCE IV 06/24/19 15:30 06/24/19 15:34 DC 06/24/19 17:00 999 MLS/HR Vital Signs/I&O 06/24/19 15:22 Temp 37.4 Pulse 121 Resp 18 B/P (MAP) 131/100 (110) O2 Delivery Room Air Capillary Refill : Less Than 3 Seconds Blood Pressure Mean: 110 Progress Note : Time: 17:50 Progress Note The patient does not have a reason for hypoxia except for maybe anxiety? Plan to get an ABG and see if it supports this hypothesis. No pulmonary embolism or infiltrates. No anemia. We'll ask about environmental problems and get a carboxyhemoglobin. We'll get an ABG. If the patient is hyperventilating from anx iety this could explain the elevated lactate. She says she took her beta blockers. ECG Initial ECG Impression Date: Jun 24, 2019 Initial ECG Impression Time: 17:03 Initial ECG Rate: 90 Initial ECG Rhythm: Normal Sinus Initial ECG Intervals: QT (571) Initial ECG Impression: Normal Initial ECG Comparisson: Unchanged Comment Sinus rhythm without ST elevation or depression. Prolonged QTC of 571. Diagnostic Imaging Diagonstic Imaging: CT (angiogram) Plain Films/CT/US/NM/MRI: chest Comments NAME: BRAYDON ARBOLEDA [facility] REC#: [id number] PT STATUS: REG ER : 1945 PHYSICIAN: ISRAEL DOELL MD ADMIT DATE: 06/24/19/ER Draft Date of Exam:06/24/19 CT ANGIO CHEST W PROCEDURE: CT angiography of the chest with contrast. TECHNIQUE: Multiple contiguous axial images were obtained through the chest after uneventful bolus administration of intravenous contrast. 3D reconstructed CTA MIP acquisitions were also performed. Auto Exposure Controls were utilized during the CT exam to meet ALARA standards for radiation dose reduction. DATE: June 24, 2019. COMPARISON: Chest radiograph June 24, 2019. CT chest May 13, 2019. INDICATION: 74-year-old female, shortness of breath. FINDINGS: There is respiratory motion artifact. There is no identified pulmonary nodule. There is no lung mass. There is mild dependent atelectasis in the right and left lower lobes. There is no additional identified focal airspace consolidation. There is no pneumothorax. There is no pleural effusion. There are limitations for evaluation of subsegmental pulmonary emboli given the degree of respiratory motion artifact. There is no identified central or segmental pulmonary embolus. The main pulmonary artery is normal in caliber. The heart is not enlarged. There is no pericardial effusion. There is an AP window lymph node on axial image 50, measuring 9 mm in short axis. There is a right hilar lymph node on axial image 59, measuring 14 mm in short axis. There is no identified abnormally enlarged axillary lymph node. The patient is status post cholecystectomy. There is a small accessory splenule. Additional limited evaluation of the imaged portions of the upper abdomen is unremarkable. There are kyphoplasty changes of T12. There is no acute bony abnormality. IMPRESSION: CT chest: 1. No identified central or segmental pulmonary embolus. 2. No identified acute cardiopulmonary abnormality. 3. Prominent right hilar and mildly prominent AP window lymph node of uncertain exact etiology or significance. Dictated on workstation # [id number] Dict: 06/24/19 1659 Trans: 06/24/191705 [facility] [id number] Interpreted by: JORGE BOYD MD Electronically signed by: Reviewed: Reviewed by Me Diagonstic Imaging: Xray Plain Films/CT/US/NM/MRI: chest (1v) Comments [facility] [place] NAME: BRAYDON ARBOLEDA [facility] REC#: [id number] PT STATUS: REG ER : 1945 PHYSICIAN: ISRAEL ODELL MD ADMIT DATE: 06/24/19/ER Signed Date of Exam:06/24/19 CHEST 1 VIEW, AP/PA ONLY INDICATION: Shortness of breath. EXAMINATION: Frontal chest was obtained at 4:05 p.m. COMPARISON: 05/08/2019. FINDINGS: There is cardiomegaly. Pacemaker device is unchanged. There is mild central vascular prominence, similar to the prior study. There is no new infiltrate, pneumothorax or pleural fluid. IMPRESSION: Unchanged cardiomegaly and mild central vascular prominence. No new infiltrate, pneumothorax or pleural fluid. Stable pacemaker device. Dictated by: Dictated on workstation # [id number] Dict: 06/24/19 1613 Trans: 06/24/191703 [facility] [id number] Interpreted by: SHEREEN KELLEY MD Electronically signed by: SHEREEN KELLEY MD 06/24/19 1705 Reviewed: Reviewed by Me Consults Consults : Consulting Physician: THERESA SALEEM DO Consults Notes Discussed the case with Dr. Saleem and he agrees something brewing that is not sure what it is based on we've captured so far. He agrees with checking for ketosis however that doesn't explain the lactate directly. We corrected her lactic acidosis still having the same respiratory rate and shortness of air. Patient denies that she takes benzos for anxiety. He would definitely recommend trending troponins. He would agree with observation or admission. He agrees with COVID19 screening. He feels like a lactic acidosis could be related to her being dehydrated combined with her effort of breathing and metformin. Departure Communication (Admissions) Time/Spoke to Admitting Phy: 19:32 Discussed the case with Dr. Reid and she is familiar with the patient. 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 Admittedly is rather heroic that someone could pant for 4 hours and maintain tachycardia and respiratory rate the entire time. Just the same we have discussed that we have done some further testing and recommends stay in the hospital and she agrees with observation at this time. It's unusual if she was having psychogenic dyspnea that her PaO2 would be only 75. Her CO2 however certainly does demonstrate she's having elevated ventilation. Impression Primary Impression: Acute respiratory distress Additional Impressions: Hypoxemia Urinary tract infection Qualified Codes: N30.00 - Acute cystitis without hematuria Sepsis Qualified Codes: A41.9 - Sepsis, unspecified organism; R65.20 - Severe sepsis without septic shock; J96.01 - Acute respiratory failure with hypoxia Disposition: ADMITTED INPATIENT Condition: Stable Admissions Decision to Admit Reason: Admit from ER (General) Decision to Admit/Date: Jun 24, 2019 Time/Decision to Admit Time: 18:00 Departure-Patient Inst. Referrals: NANNETTE REID DO (PCP/Family) Primary Care Physician ISRAEL ODELL Jun 24, 2019 15:38
[2019-06-24 15:55] LABS: BASOPHILS % (AUTO) 0 % (0-10); EOSINOPHILS # (AUTO) 0.1 10^3/uL (0.0-0.3); EOSINOPHILS % (AUTO) 1 % (0-10); HEMATOCRIT 41 % (35-52); HEMOGLOBIN 13.5 G/DL (11.5-16.0); LYMPHOCYTES # (AUTO) 2.3 X 10^3 (1.0-4.0); LYMPHOCYTES % (AUTO) 19 % (12-44); MEAN CORPUSCULAR HEMOGLOBIN 29 PG (25-34); MEAN CORPUSCULAR HGB CONC 33 G/DL (32-36); MEAN CORPUSCULAR VOLUME 88 FL (80-99); MEAN PLATELET VOLUME 9.7 FL (7.4-10.4); MONOCYTES # (AUTO) 0.7 X 10^3 (0.0-1.0); MONOCYTES % (AUTO) 6 % (0-12); NEUTROPHILS # (AUTO) 8.9 X 10^3 (1.8-7.8); NEUTROPHILS % (AUTO) 73 % (42-75); PLATELET COUNT 317 10^3/uL (130-400); RED CELL DISTRIBUTION WIDTH 13.3 % (10.0-14.5); WHITE BLOOD COUNT 12.2 10^3/uL (4.3-11.0)
[2019-06-24 16:14] LABS: CHLORIDE 102 MMOL/L (98-107); POTASSIUM 3.5 MMOL/L (3.6-5.0); SODIUM 137 MMOL/L (135-145)
[2019-06-24 16:15] LABS: CALCIUM 9.5 MG/DL (8.5-10.1)
[2019-06-24 16:16] LABS: GLUCOSE 176 MG/DL (70-105); TOTAL PROTEIN 7.2 GM/DL (6.4-8.2)
--- NOTE | 2019-06-24 16:16 | Diagnostic Imaging Report ---
INDICATION: Shortness of breath. EXAMINATION: Frontal chest was obtained at 4:05 p.m. COMPARISON: 05/08/2019. FINDINGS: There is cardiomegaly. Pacemaker device is unchanged. There is mild central vascular prominence, similar to the prior study. There is no new infiltrate, pneumothorax or pleural fluid. IMPRESSION: Unchanged cardiomegaly and mild central vascular prominence. No new infiltrate, pneumothorax or pleural fluid. Stable pacemaker device. Dictated by: Dictated on workstation # [id number]
--- OUTSIDE RECORDS SUMMARY | 2019-06-24 16:16 | XMS REPORT | Clinical Summary ---
Author Author [facility] Organization [facility] Address Unknown Phone Unavailable Care Team Providers Care Manager Search Engine Name Role Phone Belia Reid MD PCP Source Comments Some departments are not documenting in the electronic medical record. If you d o not see the information that you expected, contact Release of Information in [facility] [employer] Information Management department at [phone] for further assistan ce in locating additional records.[facility] Allergies Comments Active Allergy Reactions [...] y Kidney stones 08/24/2016 Overview: -- 10/15/16: Manager Site evaluation non-obstruct ing stone. CT shows a [...] Comments Vital Sign 145/71 03/20/2018 12:54 PM MECHANICAL MAINTENANCE SUPERVISOR Blood Pressure 64 03/20/2018 12:54 PM MECHANICAL MAINTENANCE SUPERVISOR Pulse - - Temperature - - Respiratory Rate - - Oxygen Saturation - - Inhaled Oxygen Concentration 97.9 kg (215 lb 14.4 oz) 03/20/2018 12:54 PM MECHANICAL MAINTENANCE SUPERVISOR Weight 164.6 cm (5' 4.8") 03/20/2018 12:54 PM MECHANICAL MAINTENANCE SUPERVISOR Height 36.15 03/20/2018 12:54 PM MECHANICAL MAINTENANCE SUPERVISOR Body Mass Index Plan of Treatment Health [...] 9.9 (04/01/2017 Leonela antoine, Component 10:37 AM MECHANICAL MAINTENANCE SUPERVISOR) Calvin Minor APRN-BUILDING SERVICES TECHNICIAN Results Not on filefrom Last 3 Months Insurance Type Payer Benefit Subscriber ID Effective Phone Address Plan / Dates Group Medicare HUMANA MEDICARE HUMANA xxxxxxxxx [id number] CHOICE PPO resent Advance Directives 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
--- OUTSIDE RECORDS SUMMARY | 2019-06-24 16:16 | XMS REPORT | Encounter Summary ---
Author Author [facility] Organization [facility] Address Unknown Phone Unavailable Care Team Providers Care Ship Steward Name Role Phone Belia Reid MD PCP Reason for Visit * Reason Comments Medication Refill Encounter Details Care Team Description Date Type Department Calvin Tripp APRN-CNS [address] [facility] [address] [place] [address] [phone] Uncontrolled type 2 diabetes mellitus wi th hyperglycemia (HCC) 03/19/2019 Refill [facility] [address] [place] [address] Social History Date Tobacco Use Types Packs/Day [...] (04/01/2017 No Conchis antoine, Component 10:37 AM ELECTRICIAN TELEPHONE) MANUEL Horan documented as of this encounter Visit Diagnoses Diagnosis Uncontrolled type 2 diabetes mellitus w ith hyperglycemia (HCC) documented in this encounter
--- OUTSIDE RECORDS SUMMARY | 2019-06-24 16:16 | XMS REPORT | Encounter Summary ---
Author Author [facility] Organization [facility] Address Unknown Phone Unavailable Care Team Providers Care Arcade Game Technician Name Role Phone Belia Reid MD PCP Reason for Visit * Reason Comments Medication Refill Encounter Details Care Team Description Date Type Department Calvin Tripp APRN-CNS [address] [facility] [address] [place] [address] [phone] 01/01/2019 Refill [facility] [address] [place] [address] Social History Date Tobacco Use Types Packs/Day [...] 9.9 (04/01/2017 Leonela antoine, Component 10:37 AM NETWORK INTERNSHIP) MANUEL Horan documented as of this encounter Visit Diagnoses Not on filedocumented in this encounter
[2019-06-24 16:17] LABS: CARBON DIOXIDE 21 MMOL/L (21-32)
[2019-06-24 16:18] LABS: BILIRUBIN,TOTAL 0.3 MG/DL (0.1-1.0)
--- OUTSIDE RECORDS SUMMARY | 2019-06-24 16:18 | XMS REPORT | CCD ---
Author Author Diana Reid D.O. Organization [facility] Address [address] [place] [address] Phone Care Team Providers Care Specialist Employee Labor Relations Name Role Phone Belia Reid D.O., PP Unavailable CCM Unavailable Summary Purpose Interface Exchange Insurance Providers Payer name Policy type / Coverage type Covered libertarian ID Effective Begin Date Effective End Date AETNA MEDICARE Medicare Part B [id number] 2019 Unknown Family History Family History data not found Social History Social History Element Codes Description Effective Dates Tobacco history SNOMED CT: 357985107 Nonsmoker 09/13/2010 Allergies, Adverse Reactions, Alerts Substance Reaction Codes Entered Date Inactivated Date Status Eggs reaction [id number] 09/15/2015 No Inactive Date Active _ Unknown 01/07/2019 No Inactive Date Active PENICILLINS Unknown 01/07/2019 No Inactive Date Active SULFA (SULFONAMIDES) rash Unknown 11/02/2010 No Inactive Mike e Active Problems Condition Codes Effective Dates Condition Status Dyspnea ICD-9: 786.09 ICD-10: R06.00 06/24/2019 Active Left leg swelling ICD-9: 729.81 ICD-10: M79.89 06/24/2019 Active Acute bronchitis ICD-9: 466.0 ICD-10: J20.9 07/19/2017 [...] Fill Instructions Levaquin 500 mg tablet RxNorm: 838069 1 Tablet(s) Oral QD 06/16/2019 06/23/2019 Inactive Flagyl 500 mg tablet RxNorm: 663569 1 Tablet(s) Oral three time s a day 06/16/2019 06/23/2019 Inactive Vancocin 125 mg capsule RxNorm: 600121 1 Capsule(s) Oral four t imes a day 06/08/2019 06/18/2019 Inactive diltiazem CD 240 mg capsule,extended release 24 hr RxNorm: 8 12045 1 Capsule(s) Oral QD 05/26/2019 11/21/2019 Active omeprazole 40 mg capsule,delayed release RxNorm: 284189 1 Capsule(s) Oral two times a day 05/26/2019 11/21/2019 Active Flagyl 500 mg tablet RxNorm: 510329 1 Tablet(s) Oral three time s a day 05/26/2019 06/05/2019 Inactive Cipro 250 mg tablet RxNorm: 602012 1 Tablet(s) Oral two times a day 05/26/2019 06/02/2019 Inactive hydroxyzine HCl 25 mg tablet RxNorm: 488965 1 Tablet(s) Oral QPM for itching/aniety 05/21/2019 06/27/2019 Active metoprolol tartrate 25 mg tablet RxNorm: 949027 1 Table t(s) Oral two times a day 05/21/2019 08/19/2019 Active hydroxyzine HCl 25 mg tablet RxNorm: 301235 1 Tablet(s) Oral QPM for itching/aniety 05/13/2019 05/20/2019 Inactive Singulair 10 mg tablet RxNorm: 332459 1 Tablet(s) Oral QPM 05/06/19 20 05/12/2019 Inactive gabapentin 600 mg tablet RxNorm: 276432 1 Tablet(s) Oral QD 020 06/05/2019 Inactive Valium 5 mg tablet RxNorm: 478109 1 Tablet(s) Oral QPM for stri joao/muscle spasm 04/29/2019 05/29/2019 Inactive baclofen 10 mg tablet RxNorm: 653360 1 Tablet(s) Oral QPM for s pasm/neck pain 04/24/2019 05/23/2019 Inactive baclofen 10 mg tablet RxNorm: 926551 1 Tablet(s) Oral QPM for s pasm/neck pain 04/24/2019 04/23/2019 Inactive Novolin N NPH U-100 Insulin isophane 100 unit/mL subcu taneous susp RxNorm: 811470 23 Unit(s) Subcutaneous two times a day 04/20/2019 No Stop Date A ctive cyclobenzaprine 5 mg tablet RxNorm: 868421 1 Tablet(s) Oral three times a day as needed 04/16/2019 04/23/2019 Inactive hydroxyzine HCl 25 mg tablet RxNorm: 253946 1 Tablet(s) Oral three times a day for itching/aniety 04/08/2019 05/12/2019 Inactive gabapentin 600 mg tablet RxNorm: 449220 1 Tablet(s) Oral two ti mes a day 04/08/2019 05/05/2019 Inactive gabapentin 600 mg tablet RxNorm: 044716 1 Tablet(s) Oral two ti mes a day 04/08/2019 04/07/2019 Inactive Novolin N NPH U-100 Insulin isophane 100 unit/mL subcu taneous susp RxNorm: 253738 10 Unit(s) Subcutaneous two times a day 03/03/2019 04/19/2019 I nactive gabapentin 300 mg capsule RxNorm: 213761 1 Capsule(s) O ral every night at bedtime for neuropathy 02/26/2019 04/07/2019 Inactive gabapentin 300 mg capsule RxNorm: 748141 1 Capsule(s) O ral every night at bedtime for neuropathy 02/20/2019 02/25/2019 Inactive pramipexole 1 mg tablet RxNorm: 451629 1 Tablet(s) Oral QPM FOR RESTLESS LEGS (REPLACES REQUIP) 02/12/2019 02/07/2020 Active buspirone 5 mg tablet RxNorm: 451511 TAKE 1 TABLET THREE TIMES MILDRED Y 02/12/2019 05/12/2019 Inactive Lexapro 10 mg tablet RxNorm: 196417 TAKE 1 TABLET EVERY DAY FOR MOO D 01/31/2019 No Stop Date Active Ativan 0.5 mg tablet RxNorm: 094058 TAKE 1 TABLET BY [facility] THREE TIMES DAILY NEEDED FOR ANXIETY 01/26/2019 04/28/2019 Inactive Ativan 0.5 mg tablet RxNorm: 638479 TAKE 1 TABLET BY [facility] THREE TIMES DAILY NEEDED FOR ANXIETY 01/05/2019 01/05/2019 Inactive Levaquin 500 mg tablet RxNorm: 502679 1 Tablet(s) Oral QD 12/25/2018 12/24/2018 Inactive Levaquin 500 mg tablet RxNorm: 207852 1 Tablet(s) Oral QD 12/25/2018 01/04/2019 Inactive baclofen 10 mg tablet RxNorm: 613660 1 Tablet(s) Oral three maico es a day 11/20/2018 01/19/2019 Inactive Ativan 0.5 mg tablet RxNorm: 730651 TAKE 1 TABLET BY [facility] THREE TIMES DAILY NEEDED FOR ANXIETY 11/20/2018 01/04/2019 Inactive gabapentin 300 mg capsule RxNorm: 277516 1 Capsule(s) O ral every night at bedtime for neuropathy 11/20/2018 12/20/2018 Inactive Lexapro 10 mg tablet RxNorm: 322074 1 Tablet(s) PO QD for mood 07/201801/30/2019 Inactive Zithromax Z-Lj 250 mg tablet RxNorm: 419498 Tablet(s) PO take as directed 11/04/2018 11/19/2018 Inactive Insulin Syringe 1 mL 29 gauge x 1/2" RxNorm: 2 s yringes daily with insulin Dx: E11.65 10/08/2018 No Stop Date Active gabapentin 300 mg capsule RxNorm: 720301 1 Capsule(s) PO QHS fo r neuropathy 09/18/2018 10/17/2018 Inactive cyclobenzaprine 5 mg tablet RxNorm: 224643 1 Tablet(s) PO TID a s needed 09/09/2018 09/08/2018 Inactive cyclobenzaprine 5 mg tablet RxNorm: 759194 1 Tablet(s) PO TID a s needed 09/09/2018 10/08/2018 Inactive prednisone 20 mg tablet RxNorm: 554570 1 Tablet(s) PO QD 09/08/2018 0 09/12/2018 Inactive Lantus Solostar U-100 Insulin 100 unit/mL (3 mL) subcu taneous pen RxNorm: 316851 55 Unit(s) SQ QAM 08/28/2018 11/03/2018 Inactive hydroxyzine HCl 25 mg tablet RxNorm: 726105 1 Tablet(s) PO QHS for itching 08/20/2018 05/12/2019 Inactive Lexapro 10 mg tablet RxNorm: 403588 1 Tablet(s) PO QD for mood 08/0210/18/2018 Inactive sumatriptan 100 mg tablet RxNorm: 190448 1 Tablet(s) PO at headache onset. May repeat 1 in two hours if headache remains. Max of 2 per 24 hours 04/02/2018 05/20/2018 Inactive Diflucan 150 mg tablet RxNorm: 990055 1 Tablet(s) PO QD 03/18/2018 Inactive Diflucan 150 mg tablet RxNorm: 186462 1 Tablet(s) PO QD 03/18/2018 Inactive Flagyl 500 mg tablet RxNorm: 819901 1 Tablet(s) PO TID 03/17/2018 Inactive Levaquin 500 mg tablet RxNorm: 419311 1 Tablet(s) PO QD 03/17/2018 Inactive Levaquin 500 mg tablet RxNorm: 087047 1 Tablet(s) PO QD 03/17/2018 Inactive Flagyl 500 mg tablet RxNorm: 900572 1 Tablet(s) PO TID 03/17/2018 Inactive ketoconazole 200 mg tablet RxNorm: 522970 1 Tablet(s) PO QD 019 03/19/2018 Inactive Celebrex 200 mg capsule RxNorm: 734073 1 Capsule(s) PO BID 02/06/20 18 05/20/2018 Inactive tramadol 50 mg tablet RxNorm: 550779 1 Tablet(s) PO TID as needed 1 04/08/2017 05/20/2018 Inactive gabapentin 300 mg capsule RxNorm: 378968 1 Capsule(s) PO BID 201705/20/2018 Inactive Diflucan 150 mg tablet RxNorm: 570054 1 Tablet(s) PO QD 01/20/2018 Inactive pramipexole 1 mg tablet RxNorm: 915404 1 Tablet(s) PO Q PM FOR RESTLESS LEGS (REPLACES REQUIP) 01/08/2018 02/11/2019 Inactive cyclobenzaprine 10 mg tablet RxNorm: 691220 1 Tablet(s) PO TID as needed for muscle spasm 12/17/2017 05/20/2018 Inactive pramipexole 1 mg tablet RxNorm: 039152 TAKE 1 TABLET BY MOUTH ONCE DAILY IN THE EVENING FOR RESTLESS LEGS (REPLACES REQUIP) 12/04/2017 01/05/2018 Inac tive Amaryl 4 mg tablet RxNorm: 140606 1 Tablet(s) PO BID replaces 2mg 0 11/05/2017 12/16/2017 Inactive Singulair 10 mg tablet RxNorm: 532188 1 Tablet(s) PO QHS for al lergies/lungs 10/30/2017 12/16/2017 Inactive Diflucan 100 mg tablet RxNorm: 536184 1 Tablet(s) PO QD 10/23/2017 Inactive Ativan 0.5 mg tablet RxNorm: 367094 TAKE 1 TABLET BY MOUTH THRE E TIMES DAILY 08/30/2017 11/20/2018 Inactive buspirone 5 mg tablet RxNorm: 071231 1 Tablet(s) PO TID 07/11/2017 Inactive propranolol 60 mg tablet RxNorm: 079154 1 Tablet(s) PO BID repl aces 40mg dose 06/26/2017 12/16/2017 Inactive Amaryl 4 mg tablet RxNorm: 328220 1 Tablet(s) PO BID replaces 2mg 0 06/12/2017 11/05/2017 Inactive omeprazole 40 mg capsule,delayed release RxNorm: 467347 1 Capsule(s) PO BID TAKE ONE CAPSULE BY MOUTH TWICE DAILY 05/30/2017 11/25/2017 Inactive pramipexole 1 mg tablet RxNorm: 664400 1 Tablet(s) PO Q PM for restless legs--replaces requip 05/30/2017 11/25/2017 Inactive amitriptyline 50 mg tablet RxNorm: 681171 1 Tablet(s) PO QHS 201709/16/2017 Inactive Diflucan 100 mg tablet RxNorm: 434307 1 Tablet(s) PO BID 05/07/2017 0 05/20/2017 Inactive nystatin (bulk) 100 million unit powder RxNorm: Application TO P BID 05/07/2017 05/20/2018 Inactive cholestyramine (with sugar) 4 gram oral powder RxNorm: 911895 1 Unit Dose PO QD 05/07/2017 01/20/2018 Inactive Ativan 0.5 mg tablet RxNorm: 182426 TAKE ONE TABLET BY MOUTH TH REE TIMES DAILY 05/01/2017 09/02/2017 Inactive Trulicity 1.5 mg/0.5 mL subcutaneous pen injector RxNorm: 15 00614 1 Unit Dose SQ WEEKLY 02/22/2017 03/23/2017 Inactive doxycycline hyclate 100 mg capsule RxNorm: 4960148 1 Capsule(s) PO BID 01/23/2017 02/05/2017 Inactive Amaryl 4 mg tablet RxNorm: 100611 1 Tablet(s) PO BID replaces 2mg 1 03/25/2016 05/22/2017 Inactive magnesium oxide 400 mg capsule RxNorm: 718953 1 Capsule(s) PO QD 07/18/2017 Inactive Ativan 0.5 mg tablet RxNorm: 349996 TAKE ONE TABLET BY MOUTH TH REE TIMES DAILY 01/17/2017 05/01/2017 Inactive Amaryl 2 mg tablet RxNorm: 570383 1 Tablet(s) PO BID 12/27/201601/22 Inactive Amaryl 2 mg tablet RxNorm: 608906 1 Tablet(s) PO BID 12/26/201612/26 Inactive Ativan 0.5 mg tablet RxNorm: 720469 TAKE ONE TABLET BY MOUTH TH REE TIMES DAILY 12/05/2016 01/18/2017 Inactive pramipexole 1 mg tablet RxNorm: 049100 1 Tablet(s) PO Q PM for restless legs--replaces requip 11/26/2016 05/30/2017 Inactive Mobic 15 mg tablet RxNorm: 091234 1 Tablet(s) PO QD 10/08/20162016 Inactive cyclobenzaprine 5 mg tablet RxNorm: 053740 1/2- 1 Tablet(s) PO TID 10/08/2016 10/17/2016 Inactive Ativan 0.5 mg tablet RxNorm: 934100 1 Tablet(s) PO TID 09/20/201607/2016 Inactive amitriptyline 50 mg tablet RxNorm: 078922 1 Tablet(s) PO QHS 201605/30/2017 Inactive propranolol 60 mg tablet RxNorm: 914103 1 Tablet(s) PO BID repl aces 40mg dose 09/19/2016 06/26/2017 Inactive Ativan 0.5 mg tablet RxNorm: 261364 1 Tablet(s) PO TID 08/20/2016 Inactive omeprazole 40 mg capsule,delayed release RxNorm: 019622 1 Capsule(s) PO BID TAKE ONE CAPSULE BY MOUTH TWICE DAILY 08/20/2016 05/30/2017 Inactive amitriptyline 50 mg tablet RxNorm: 371063 1 Tablet(s) PO QHS 201609/18/2016 Inactive pramipexole 1 mg tablet RxNorm: 169605 1 Tablet(s) PO Q PM for restless legs--replaces requip 07/23/2016 11/25/2016 Inactive Amaryl 2 mg tablet RxNorm: 521914 1 Tablet(s) PO BID 07/23/201612/27 Inactive propranolol 40 mg tablet RxNorm: 079536 1 Tablet(s) PO BID 07/13/19 17 09/18/2016 Inactive Ativan 0.5 mg tablet RxNorm: 884818 1 Tablet(s) PO QID 06/19/2016 Inactive Amaryl 2 mg tablet RxNorm: 914840 1 Tablet(s) PO BID 06/19/201607/22 Inactive Ativan 0.5 mg tablet RxNorm: 749920 1 Tablet(s) PO QID 06/19/2016 Inactive buspirone 5 mg tablet RxNorm: 070345 1 Tablet(s) PO TID 06/19/2016 Inactive Ativan 0.5 mg tablet RxNorm: 670102 1 Tablet(s) PO BID 05/24/2016 Inactive buspirone 5 mg tablet RxNorm: 611120 1 Tablet(s) PO TID 05/23/2016 Inactive Macrobid 100 mg capsule RxNorm: 845831 1 Capsule(s) PO QOD 05/03/19 17 10/07/2016 Inactive pramipexole 1 mg tablet RxNorm: 188893 Tablet(s) 1 Tabl et(s) PO QPM for restless legs--replaces requip 04/26/2016 06/24/2016 Inactive propranolol 40 mg tablet RxNorm: 979956 TAKE ONE TABLET BY MOUT H TWICE DAILY 04/26/2016 06/24/2016 Inactive Detrol LA 4 mg capsule,extended release RxNorm: 144643 1 Capsul e(s) PO QHS 04/03/2016 05/02/2016 Inactive prednisone 20 mg tablet RxNorm: 238100 1 Tablet(s) PO QD 02/29/2016 0 03/04/2016 Inactive Actos 30 mg tablet RxNorm: 392912 TAKE ONE TABLET BY MOUTH ONCE DAILY 02/27/2016 12/19/2016 Inactive clindamycin 300 mg capsule RxNorm: 388295 1 Capsule(s) PO TID 02/0102/08/2016 Inactive Flagyl 500 mg tablet RxNorm: 348328 1 Tablet(s) PO BID 02/02/201609/2015 Inactive omeprazole 40 mg capsule,delayed release RxNorm: 101175 TAKE ONE CAPSULE BY MOUTH TWICE DAILY 01/15/2016 07/12/2016 Inactive gabapentin 300 mg capsule RxNorm: 480079 1 Capsule(s) PO QAM an d 2 po q HS 01/05/2016 06/18/2016 Inactive gabapentin 300 mg capsule RxNorm: 290554 1 Capsule(s) P O BID 1 Capsule(s) PO QHS 12/05/2015 01/04/2016 Inactive cyclobenzaprine 10 mg tablet RxNorm: 624924 1 Tablet(s) PO TID for spasm as needed for muscle spasm 12/05/2015 06/18/2016 Inactive ciprofloxacin 250 mg tablet RxNorm: 046256 1 Tablet(s) PO BID 12/0412/14/2015 Inactive pramipexole 1 mg tablet RxNorm: 952972 Tablet(s) 1 Tabl et(s) PO QPM for restless legs--replaces requip 11/07/2015 11/26/2016 Inactive Januvia 100 mg tablet RxNorm: 426184 1 Tablet(s) PO QD 10/26/201504/2015 Inactive propranolol 40 mg tablet RxNorm: 927882 TAKE ONE TABLET BY MOUT H TWICE DAILY 10/25/2015 04/21/2016 Inactive gabapentin 300 mg capsule RxNorm: 118278 1 Capsule(s) PO QHS 201512/04/2015 Inactive Cipro 500 mg tablet RxNorm: 359314 1 Tablet(s) PO BID 10/05/201511/2015 Inactive pramipexole 1 mg tablet RxNorm: 511165 Tablet(s) 1 Tabl et(s) PO QPM for restless legs--replaces requip 10/04/2015 11/02/2015 Inactive propranolol 40 mg tablet RxNorm: 863494 TAKE ONE TABLET BY MOUT H TWICE DAILY 09/26/2015 10/24/2015 Inactive Amaryl 2 mg tablet RxNorm: 984236 1 Tablet(s) PO QD 09/15/20152016 Inactive gabapentin 300 mg capsule RxNorm: 461133 1 Capsule(s) PO QHS 201510/14/2015 Inactive buspirone 5 mg tablet RxNorm: 497222 1 Tablet(s) PO TID 09/15/2015 Inactive pramipexole 1 mg tablet RxNorm: 403298 Tablet(s) 1 Tabl et(s) PO QPM for restless legs--replaces requip 09/08/2015 10/03/2015 Inactive pramipexole 1 mg tablet RxNorm: 826248 1 Tablet(s) PO Q PM for restless legs--replaces requip 08/08/2015 09/08/2015 Inactive Amaryl 2 mg tablet RxNorm: 673833 1 Tablet(s) PO QD 07/07/20152015 Inactive pramipexole 1 mg tablet RxNorm: 593030 1 Tablet(s) PO Q PM for restless legs--replaces requip 07/05/2015 08/03/2015 Inactive ropinirole 2 mg tablet RxNorm: 642993 TAKE ONE TABLET BY MOUTH TWICE DAILY 05/09/2015 09/14/2015 Inactive Diflucan 100 mg tablet RxNorm: 528258 1 Tablet(s) PO QD 03/30/2015 Inactive propranolol 40 mg tablet RxNorm: 866114 1 Tablet(s) PO BID 02/24/20 15 08/21/2015 Inactive [SAVINGS FOR UNINSURED PATIE NTS -- BIN:607706, PCN: ASPROD1, Group: AME08, ID# [id number], Process claim through Warp 9, for questions: . THIS IS NOT INSURANCE.] Flagyl 500 mg tablet RxNorm: 506467 1 Tablet(s) PO BID 02/03/201502/2015 Inactive Cipro 500 mg tablet RxNorm: 805969 1 Tablet(s) PO BID 02/03/201502/01 Inactive Carafate 1 gram tablet RxNorm: 485050 1 Tablet(s) PO QID make i nto slurry 02/03/2015 09/14/2015 Inactive ondansetron HCl 4 mg tablet RxNorm: 593706 1 Tablet(s) PO Q4H as needed for nausea 12/29/2014 01/04/2016 Inactive Diflucan 100 mg tablet RxNorm: 297373 1 Tablet(s) PO QD 12/29/2014 Inactive Keflex 500 mg capsule RxNorm: 572078 1 Capsule(s) PO TID 12/29/2014 1 03/09/2014 Inactive omeprazole 40 mg capsule,delayed release RxNorm: 995928 1 Capsu le(s) PO BID 12/27/2014 12/21/2015 Inactive [SAVINGS FOR UNINSUR ED PATIENTS -- BIN:920382, PCN: ASPROD1, Group: AME08, ID# [id number], Process claim through MedIKeelr, for questions: . THIS IS NOT INSURANCE.] ropinirole 2 mg tablet RxNorm: 978290 1 Tablet(s) PO BID 09/29/2014 0 03/27/2015 Inactive [SAVINGS FOR UNINSURED PATIENTS -- BIN:0 92967, PCN: ASPROD1, Group: AME08, ID# [id number], Process claim through MedIMedia Convergence Groupact, for questions: . THIS IS NOT INSURANCE.] buspirone 5 mg tablet RxNorm: 587684 1 Tablet(s) PO TID 09/17/2014 Inactive ropinirole 2 mg tablet RxNorm: 992364 1 Tablet(s) PO BID 09/02/2014 0 09/28/2014 Inactive [SAVINGS FOR UNINSURED PATIENTS -- BIN:0 56094, PCN: ASPROD1, Group: AME08, ID# [id number], Process claim through MedImpact, for questions: . THIS IS NOT INSURANCE.] Zyrtec 10 mg tablet RxNorm: 2959535 1 Tablet(s) PO QD 09/02/201412/02 Inactive propranolol 40 mg tablet RxNorm: 829640 1 Tablet(s) PO BID 07/21/19 15 02/23/2015 Inactive [SAVINGS FOR UNINSURED PATIE NTS -- BIN:510336, PCN: ASPROD1, Group: AME08, ID# [id number], Process claim through MedImpact, for questions: . THIS IS NOT INSURANCE.] ropinirole 2 mg tablet RxNorm: 835185 1 Tablet(s) PO QHS 05/14/2014 0 09/01/2014 Inactive [SAVINGS FOR UNINSURED PATIENTS -- BIN:0 95731, PCN: ASPROD1, Group: AME08, ID# [id number], Process claim through MedImpact, for questions: . THIS IS NOT INSURANCE.] cyclobenzaprine 10 mg tablet RxNorm: 169540 1 Tablet(s) PO QHS for spasm 04/06/2014 09/01/2014 Inactive ipratropium-albuterol 0.5 mg-3 mg(2.5 mg base)/3 mL ne bulization soln RxNorm: 8397386 1 Unit Dose INH Q4H 03/16/2014 No Stop Date Active [SAVINGS FOR UNINSURED PATIENTS -- BIN:883624, PCN: ASPROD1, Group: AME08, ID# [id number], Process claim through MedImpact, for questions: . THIS IS NOT INSURANCE.] prednisone 20 mg tablet RxNorm: 049707 1 Tablet(s) PO BID 03/09/2014 03/15/2014 Inactive [SAVINGS FOR UNINSURED PATIENTS -- BIN:0 01916, PCN: ASPROD1, Group: AME08, ID# [id number], Process claim through MedImpact, for questions: . THIS IS NOT INSURANCE.] ipratropium-albuterol 0.5 mg-3 mg(2.5 mg base)/3 mL ne bulization soln RxNorm: 7063516 1 Unit Dose INH Q4H 03/09/2014 03/15/2014 Inactive [SAVINGS FOR UNINSURED PATIENTS -- BIN:268720, PCN: ASPROD1, Group: AME08, ID# [id number], Process claim through MedImpact, for questions: . THIS IS NOT INSURANCE.] Levaquin 500 mg tablet RxNorm: 561171 1 Tablet(s) PO QD 03/09/2014 Inactive [SAVINGS FOR UNINSURED PATIENTS -- BIN:0 65865, PCN: ASPROD1, Group: AME08, ID# [id number], Process claim through MedImpact, for questions: . THIS IS NOT INSURANCE.] Carafate 1 gram tablet RxNorm: 912764 1 Tablet(s) PO AC & HS ma ke into slurry 02/09/2014 09/01/2014 Inactive [SAVINGS FOR UNINSUR ED PATIENTS -- BIN:332732, PCN: ASPROD1, Group: AME08, ID# [id number], Process claim through MedImpact, for questions: . THIS IS NOT INSURANCE.] Fioricet 50 mg-300 mg-40 mg capsule RxNorm: 6229355 1-2 Capsule(s) PO Q4H as needed for headache --max of 6 a day 02/09/2014 09/01/2014 Inactive [SAVINGS FOR UNINSURED PATIENTS -- BIN:018164, PCN: ASPROD1, Group: AME08, ID# [id number], Process claim through MedImpact, for questions: . THIS IS NOT INSURANCE.] propranolol 40 mg tablet RxNorm: 090152 1 Tablet(s) PO BID 12/08/19 14 06/04/2014 Inactive [SAVINGS FOR UNINSURED PATIE NTS -- BIN:993830, PCN: ASPROD1, Group: AME08, ID# [id number], Process claim through MedImpact, for questions: . THIS IS NOT INSURANCE.] buspirone 5 mg tablet RxNorm: 341777 1 Tablet(s) PO TID 12/02/2013 Inactive omeprazole 40 mg capsule,delayed release RxNorm: 064460 1 Capsu le(s) PO BID 11/25/2013 11/19/2014 Inactive [SAVINGS FOR UNINSUR ED PATIENTS -- BIN:174960, PCN: ASPROD1, Group: AME08, ID# [id number], Process claim through MedImpact, for questions: . THIS IS NOT INSURANCE.] ropinirole 2 mg tablet RxNorm: 585355 1 Tablet(s) PO QHS 11/10/2013 0 05/08/2014 Inactive [SAVINGS FOR UNINSURED PATIENTS -- BIN:0 57040, PCN: ASPROD1, Group: AME08, ID# [id number], Process claim through MedImpact, for questions: . THIS IS NOT INSURANCE.] Cipro 500 mg tablet RxNorm: 065191 1 Tablet(s) PO BID 10/21/201312/03 Inactive [SAVINGS FOR UNINSURED PATIENTS -- BIN:0 71964, PCN: ASPROD1, Group: AME08, ID# [id number], Process claim through MedImpact, for questions: . THIS IS NOT INSURANCE.] hydroxyzine HCl 25 mg tablet RxNorm: 654753 1 Tablet(s) PO Q4-6 H as needed 10/05/2013 01/04/2016 Inactive [SAVINGS FOR UNINSUR ED PATIENTS -- BIN:000600, PCN: ASPROD1, Group: AME08, ID# [id number], Process claim through MedImpact, for questions: . THIS IS NOT INSURANCE.] triamcinolone acetonide 0.1 % topical cream RxNorm: 9013092 Appl ication TOP BID 10/05/2013 09/01/2014 Inactive [SAVINGS FOR UNINSUR ED PATIENTS -- BIN:409478, PCN: ASPROD1, Group: AME08, ID# [id number], Process claim through MedImpact, for questions: . THIS IS NOT INSURANCE.] albuterol sulfate HFA 90 mcg/actuation aerosol inhaler RxNor m: 6116661 2 Puff(s) INH Q4H as needed for cough 10/01/2013 12/22/2013 Inactive [MAKSIM INGS FOR UNINSURED PATIENTS -- BIN:682591, PCN: ASPROD1, Group: AME08, ID# [id number], Process claim through MedImpact, for questions: . THIS IS NOT INSURANCE.] propranolol 40 mg tablet RxNorm: 449328 1 Tablet(s) PO BID 09/02/19 14 11/29/2013 Inactive [SAVINGS FOR UNINSURED PATIE NTS -- BIN:486162, PCN: ASPROD1, Group: AME08, ID# [id number], Process claim through MedImpact, for questions: . THIS IS NOT INSURANCE.] propranolol 40 mg tablet RxNorm: 164563 1 Tablet(s) PO BID 08/05/19 14 08/31/2013 Inactive [SAVINGS FOR UNINSURED PATIE NTS -- BIN:934014, PCN: ASPROD1, Group: AME08, ID# [id number], Process claim through MedImpact, for questions: . THIS IS NOT INSURANCE.] Toprol XL 50 mg tablet,extended release RxNorm: 471802 1 Tablet (s) PO QHS 07/23/2013 08/03/2013 Inactive Macrobid 100 mg capsule RxNorm: 519816 1 Capsule(s) PO BID 07/04/19 14 07/09/2013 Inactive Toprol XL 50 mg tablet,extended release RxNorm: 297105 1 Tablet (s) PO QHS 05/28/2013 06/26/2013 Inactive ciprofloxacin 500 mg tablet RxNorm: 681449 1 Tablet(s) PO BID 05/2706/02/2013 Inactive Bystolic 5 mg tablet RxNorm: 316186 1 Tablet(s) PO QD 05/27/201305/03 Inactive ropinirole 2 mg tablet RxNorm: 317189 1 Tablet(s) PO QHS 04/22/2013 0 11/09/2013 Inactive Cipro 250 mg tablet RxNorm: 737152 1 Tablet(s) PO BID 04/06/201311/2013 Inactive ropinirole 2 mg tablet RxNorm: 504228 1 Tablet(s) PO QHS 02/17/2013 0 04/21/2013 Inactive Amaryl 2 mg tablet RxNorm: 647192 1 Tablet(s) PO QAM 11/11/201211/10 Inactive Amaryl 2 mg tablet RxNorm: 824085 1 Tablet(s) PO QAM 11/11/201204/05 Inactive omeprazole 40 mg capsule,delayed release RxNorm: 478647 1 Capsu le(s) PO BID 08/14/2012 08/08/2013 Inactive Bystolic 5 mg tablet RxNorm: 544927 1 Tablet(s) PO QD 08/14/201205/03 Inactive propranolol 60 mg tablet RxNorm: 587096 Tablet(s) PO TAKE 1 TAB LET TWICE DAILY 08/01/2012 09/01/2012 Inactive Bystolic 5 mg tablet RxNorm: 550729 1 Tablet(s) PO QD 07/21/201207/02 Inactive Bystolic 5 mg tablet RxNorm: 448508 1 Tablet(s) PO QD 07/21/201207/03 Inactive Prilosec 40 mg capsule,delayed release RxNorm: 052707 1 Capsule (s) PO BID 06/24/2012 07/21/2012 Inactive buspirone 10 mg tablet RxNorm: 546686 1 Tablet(s) PO TID 05/08/2012 0 05/23/2016 Inactive Valium 10 mg tablet RxNorm: 508327 1 Tablet(s) PO BID 04/02/201207/03 Inactive Endocet 10 mg-325 mg tablet RxNorm: 1085003 1 Tablet(s) PO QID 03/0607/21/2012 Inactive as needed for severe pain Valium 10 mg tablet RxNorm: 887605 1 Tablet(s) PO BID 02/27/2012 No S top Date Active Endocet 10 mg-325 mg tablet RxNorm: 3997850 1 Tablet(s) PO QID 02/0203/27/2012 Inactive as needed for severe pain Endocet 10 mg-325 mg tablet RxNorm: 4486722 1 Tablet(s) PO QID 01/0302/26/2012 Inactive as needed for severe pain Valium 10 mg tablet RxNorm: 651345 1 Tablet(s) PO BID 01/29/2012 No S top Date Active Protonix 40 mg tablet,delayed release RxNorm: 389581 1 Tablet(s ) PO QD 01/28/2012 07/21/2012 Inactive metformin ER 500 mg tablet,extended release 24 hr RxNorm: 86 0977 1 Tablet(s) PO QD 12/26/2011 07/20/2012 Inactive Trazadone 150 mg Tablet RxNorm: 1 Tablet(s) PO QHS prn sleep 1 04/23/2012 Inactive Endocet 10 mg-325 mg tablet RxNorm: 6453878 1 Tablet(s) PO QID 12/0301/24/2012 Inactive as needed for severe pain Nexium 40 mg capsule,delayed release RxNorm: 302729 1 Capsule(s ) PO QD 12/26/2011 01/27/2012 Inactive Symbicort 160 mcg-4.5 mcg/actuation HFA Aerosol Inhaler RxNo rm: 4540923 2 Puff(s) INH BID 12/04/2011 07/21/2012 Inactive Endocet 10 mg-325 mg tablet RxNorm: 6934414 1 Tablet(s) PO QID 11/0312/25/2011 Inactive as needed for severe pain metformin ER 500 mg tablet,extended release 24 hr RxNorm: 86 0977 1 Tablet(s) PO QD 11/20/2011 12/19/2011 Inactive metformin ER 500 mg tablet,extended release 24 hr RxNorm: 86 0977 1 Tablet(s) PO QD 11/20/2011 11/19/2011 Inactive amitriptyline 100 mg tablet RxNorm: 167047 Tablet(s) PO QHS 1 a nd 1/2 tabs QHS 11/12/2011 11/13/2011 Inactive Valium 10 mg tablet RxNorm: 355803 1 Tablet(s) PO BID 11/09/2011 No S top Date Active Endocet 10 mg-325 mg tablet RxNorm: 6336343 1 Tablet(s) PO QID 10/0211/14/2011 Inactive as needed for severe pain Aricept 10 mg Tab RxNorm: 138540 1 Tablet(s) PO QD 10/05/2011 013 Inactive Valium 10 mg tablet RxNorm: 404809 1 Tablet(s) PO BID 10/05/2011 No S top Date Active Endocet 10 mg-325 mg Tab RxNorm: 9232334 1 Tablet(s) PO QID 012 10/09/2011 Inactive as needed for severe pain Aricept 10 mg Tab RxNorm: 137143 1 Tablet(s) PO QD 08/14/2011 Inactive Endocet 10 mg-325 mg Tab RxNorm: 4056931 1 Tablet(s) PO QID 012 08/31/2011 Inactive as needed for severe pain Valium 10 mg Tab RxNorm: 466901 1 Tablet(s) PO BID 08/02/2011 No Stop Date Active propranolol 60 mg tablet RxNorm: 948663 1 Tablet(s) PO BID 07/26/19 12 09/11/2011 Inactive amitriptyline 100 mg tablet RxNorm: 762603 Tablet(s) PO QHS 1 a nd /2 tabs QHS 06/20/2011 09/11/2011 Inactive buspirone 10 mg tablet RxNorm: 009503 1 Tablet(s) PO BID 06/18/2011 0 09/15/2011 Inactive propranolol 60 mg Tab RxNorm: 088214 1 Tablet(s) PO BID 06/18/2011 Inactive gabapentin 800 mg Tab RxNorm: 208789 1 Tablet(s) PO BID 06/18/2011 Inactive ropinirole 2 mg tablet RxNorm: 734849 1 Tablet(s) PO QHS 05/29/2011 0 08/26/2011 Inactive trimethoprim 100 mg Tab RxNorm: 821854 1 Tablet(s) PO QHS 05/29/2011 07/21/2012 Inactive Endocet 10 mg-325 mg Tab RxNorm: 0187169 1 Tablet(s) PO QID 012 2011 Inactive as needed for severe pain Valium 10 mg Tab RxNorm: 034063 1 Tablet(s) PO QHS N eed to take med as prescribed. this is a 40 day RX. No early fills. 05/17/2011 05/20/2018 Inactive propranolol 60 mg Tab RxNorm: 078793 1 Tablet(s) PO BID 04/16/2011 Inactive Neurontin 800 mg Tab RxNorm: 393030 1 Tablet(s) PO QHS 04/05/201103/2011 Inactive Endocet 10 mg-325 mg Tab RxNorm: 5393242 1 Tablet(s) PO QID 012 05/02/2011 Inactive as needed for severe pain oxycodone-acetaminophen 10 mg-325 mg tablet RxNorm: 4812957 1 Ta blet(s) PO Q4H 03/28/2011 05/19/2012 Inactive Valium 10 mg Tab RxNorm: 219312 1 Tablet(s) PO QHS 03/28/2011 012 Inactive buspirone 10 mg Tab RxNorm: 783134 1 Tablet(s) PO BID 03/27/201106/02 Inactive propranolol 60 mg Tab RxNorm: 060898 1 Tablet(s) PO BID 03/19/2011 Inactive Klor-Con M20 20 mEq Tab RxNorm: 2681436 1 Tablet(s) PO QD 03/19/2011 07/21/2012 Inactive Aricept 10 mg Tab RxNorm: 334127 1 Tablet(s) PO QD 02/27/2011 012 Inactive propranolol 60 mg Tab RxNorm: 497301 1 Tablet(s) PO BID 02/19/2011 Inactive omeprazole 40 mg capsule,delayed release RxNorm: 882316 1 Capsu le(s) PO BID 01/24/2011 05/23/2011 Inactive clindamycin 300 mg capsule RxNorm: 528986 1 Capsule(s) PO TID 01/2402/02/2011 Inactive propranolol 60 mg Tab RxNorm: 896667 1 Tablet(s) PO BID 01/22/2011 No Stop Date Active nystatin 100,000 unit/g Topical Cream RxNorm: 019057 Applicatio n TOP BID 01/15/2011 01/14/2011 Inactive to rash for 2-4 week s Diflucan 200 mg Tab RxNorm: 350965 1 Tablet(s) PO QD 01/15/201101/28 Inactive buspirone 10 mg Tab RxNorm: 148593 1 Tablet(s) PO BID 01/08/201103/05 Inactive Valium 10 mg Tab RxNorm: 428084 1 Tablet(s) PO QHS 01/05/2011 012 Inactive Diflucan 200 mg Tab RxNorm: 510300 1 Tablet(s) PO QD 01/01/201101/14 Inactive Diflucan 200 mg Tab RxNorm: 092709 1 Tablet(s) PO QD 12/18/201012/31 Inactive Valium 10 mg Tab RxNorm: 242400 1 Tablet(s) PO QHS 12/12/2010 011 Inactive Diflucan 200 mg Tab RxNorm: 094430 1 Tablet(s) PO QD 12/07/201012/18 Inactive Aricept 10 mg Tab RxNorm: 499133 1 Tablet(s) PO QD 11/20/2010 011 Inactive ropinirole 1 mg Tab RxNorm: 222808 1 Tablet(s) PO QHS 11/16/201005/03 Inactive enalapril maleate 5 mg Tab RxNorm: 278464 1 Tablet(s) PO QD 011 05/20/2018 Inactive buspirone 10 mg Tab RxNorm: 784793 1 Tablet(s) PO BID 11/16/201012/02 Inactive Valium 10 mg Tab RxNorm: 247316 1 Tablet(s) PO QHS 11/07/2010 011 Inactive Pyridium 100 mg Tab RxNorm: 4252883 1 Tablet(s) PO TID 11/02/201004/2010 Inactive Macrobid 100 mg Cap RxNorm: 4544204 1 Capsule(s) PO BID 11/02/2010 Inactive buspirone 10 mg Tab RxNorm: 973372 1 Tablet(s) PO QHS 10/18/201005/02 Inactive propranolol 60 mg Tab RxNorm: 071739 1 Tablet(s) PO BID 09/18/2010 Inactive Valium 10 mg Tab RxNorm: 831931 1 Tablet(s) PO QHS 09/05/2010 011 Inactive Aricept 10 mg Tab RxNorm: 420730 1 Tablet(s) PO QD 08/14/2010 011 Inactive Valium 10 mg Tab RxNorm: 352288 1 Tablet(s) PO QHS 06/26/2010 011 Inactive ropinirole 1 mg Tab RxNorm: 352166 1 Tablet(s) PO QHS 06/19/201010/02 Inactive omeprazole 40 mg Cap, delayed release RxNorm: 368184 1 Capsule( s) PO QD 06/07/2010 10/04/2010 Inactive Endocet 10 mg-325 mg Tab RxNorm: 6660692 1 Tablet(s) PO QID as needed for severe pain 06/07/2010 03/07/2011 Inactive Endocet 10 mg-325 mg Tab RxNorm: 8600020 1 Tablet(s) PO QID as needed for severe pain 05/04/2010 06/02/2010 Inactive Valium 10 mg Tab RxNorm: 401855 1 Tablet(s) PO QHS 05/01/2010 011 Inactive propranolol 60 mg Tab RxNorm: 272090 1 Tablet(s) PO BID 04/03/2010 Inactive Valium 10 mg Tab RxNorm: 873193 1 Tablet(s) PO QHS 03/28/2010 011 Inactive omeprazole 40 mg Cap, Delayed Release RxNorm: 606499 1 Capsule( s) PO QD 03/28/2010 06/06/2010 Inactive Endocet 10 mg-325 mg Tab RxNorm: 5118545 1 Tablet(s) PO QID prn ari n 03/27/2010 05/20/2018 Inactive Valium 10 mg Tab RxNorm: 665459 1 Tablet(s) PO QHS 02/20/2010 011 Inactive Diflucan 100 mg Tab RxNorm: 341134 1 Tablet(s) PO BID 01/23/201003/2009 Inactive Diflucan 100 mg Tab RxNorm: 663972 1 Tablet(s) PO BID 01/05/201001/02 Inactive Aricept 10 mg Tab RxNorm: 819635 1 Tablet(s) PO QD 12/01/2009 011 Inactive OxyContin 20 mg 12 hr Tab RxNorm: 2971363 1 Tablet(s) PO BID 200904/05/2010 Inactive oxycodone-acetaminophen 10 mg-325 mg Tab RxNorm: 9024993 1 Table t(s) PO Q4H 11/22/2009 11/26/2009 Inactive Phenergan 25 mg Tab RxNorm: 750254 1 Tablet(s) PO PRN MIGRAINE 11/0303/07/2011 Inactive Demerol 100 mg Tab RxNorm: 581492 1 Tablet(s) PO PRN MIGRAINE 11/2203/07/2011 Inactive Oxycodone-Acetaminophen 10 mg-325 mg Tab RxNorm: 6732992 1 Table t(s) PO Q4H 10/11/2009 10/15/2009 Inactive Percocet 10 mg-325 mg Tab RxNorm: 9426074 1 Tablet(s) PO Q4H 200910/24/2009 Inactive propranolol 60 mg Tab RxNorm: 080340 1 Tablet(s) PO BID 08/29/2009 Inactive Valium 10 mg Tab RxNorm: 527838 1 Tablet(s) PO QHS 08/16/2009 010 Inactive Keflex 500 mg Cap RxNorm: 816488 1 Capsule(s) PO BID 07/25/200907/31 Inactive Hydroxyzine 25 mg Tab RxNorm: 686453 1 Tablet(s) PO TID 07/25/2009 Inactive Prednisone 20 mg Tab RxNorm: 397100 1 Tablet(s) PO BID 07/25/2009 Inactive Demerol 100 mg Tab RxNorm: 280064 1 Tablet(s) PO PRN MIGRAINE 07/25 No Stop Date Active Ropinirole 1 mg Tab RxNorm: 840241 1 Tablet(s) PO HS 07/20/200902/14 Inactive Valium 10 mg Tab RxNorm: 933880 1 Tablet(s) PO QHS 07/18/2009 010 Inactive Endocet 10 mg-325 mg Tab RxNorm: 1222354 1 Tablet(s) PO TID 010 07/07/2009 Inactive Demerol 100 mg Tab RxNorm: 882913 1 Tablet(s) PO PRN MIGRAINE 06/08 No Stop Date Active Ropinirole 1 mg Tab RxNorm: 999985 1 Tablet(s) PO HS 05/16/200907/14 Inactive ipratropium-albuterol 0.5 mg-3 mg(2.5 mg base)/3 mL ne bulization soln RxNorm: 7631021 1 Unit Dose INH Q4H as needed No Start Date Active MagOx 400 mg (241.3 mg magnesium) tablet RxNorm: 464419 1 Table t(s) PO BID No Start Date Active Vitamin B12 1000mcg Tablet RxNorm: 1 Tablet(s) PO QD No Start Date Active Vitamin D3 5,000 unit tablet RxNorm: 129055 1 Tablet(s) PO QD No Star t Date Active Tylenol Arthritis Pain 650 mg tablet,extended release RxNorm : 9034806 1 Tablet(s) PO Q4H No Start Date Active Lotrimin AF 2 % topical powder RxNorm: 843884 1 Application TOP BID No Start Date Active enalapril maleate 5 mg Tab RxNorm: 577883 1 Tablet(s) PO QD No Star t Date 07/20/2012 Inactive Demerol 100 mg Tab RxNorm: 897934 Tablet(s) PO PRN MIGRAINE No Star t Date 06/02/2009 Inactive metformin 500 mg tablet RxNorm: 295336 1 Tablet(s) PO QD No Start D ate 04/05/2013 Inactive Breo Ellipta 100 mcg-25 mcg/dose powder for inhalation RxNor m: 7017214 1 Puff(s) INH BID No Start Date 01/04/2016 Inactive Mag-Oxide 400 mg Tab RxNorm: 493872 1 Tablet(s) PO QD No Start Date 0 07/21/2012 Inactive Cipro 500 mg Tab RxNorm: 570658 1 Tablet(s) PO QD No Start Date 04/05 Inactive Ativan 0.5 mg tablet RxNorm: 358330 1 Tablet(s) PO TID as needed No Start Date 05/06/2019 Inactive melatonin 3 mg tablet RxNorm: 820008 2 Tablet(s) PO QHS No Start Da te 08/19/2018 Inactive buspirone 10 mg Tab RxNorm: 901735 1 Tablet(s) PO QD No Start Date Inactive sucralfate 100 mg/mL Oral Susp RxNorm: 004797 2 Teaspoon(s) PO QID No Start Date 07/21/2012 Inactive hydrocodone 5 mg-acetaminophen 325 mg tablet RxNorm: 070295 1 Tablet(s) PO Q4H as needed No Start Date 08/19/2018 Inactive Amaryl 2 mg tablet RxNorm: 978029 1 Tablet(s) PO BID No Start Date Inactive OxyContin 20 mg 12 hr Tab RxNorm: 5511703 1 Tablet(s) PO BID No Sta rt Date 11/27/2009 Inactive propranolol 40 mg tablet RxNorm: 162624 1 Tablet(s) PO QID No Start Date 01/19/2018 Inactive Trazadone 150 mg Tablet RxNorm: 1-2 Tablet(s) PO QHS prn sleep No Start Date 08/09/2010 Inactive propranolol 60 mg Tab RxNorm: 582943 1/2 Tablet(s) PO BID No Start Date 01/21/2011 Inactive insulin NPH and regular human subcutaneous RxNorm: 7189502 subcu taneous No Start Date 11/20/2018 Inactive Ativan 0.5 mg tablet RxNorm: 841256 1 Tablet(s) PO QID No Start Date 06/18/2016 Inactive Vasotec 5 mg Tab RxNorm: 574059 1 Tablet(s) PO BID No Start Date 06/2011 Inactive Toprol XL 50 mg tablet,extended release RxNorm: 642516 1 Tablet (s) PO BID No Start Date 04/05/2013 Inactive Ativan 0.5 mg tablet RxNorm: 482554 1 Tablet(s) PO TID No Start Date 05/25/2016 Inactive Klor-Con M20 20 mEq Tab RxNorm: 7011786 1 Tablet(s) PO QD No Start Date 03/19/2011 Inactive sumatriptan 100 mg tablet RxNorm: 578575 1 Tablet(s) PO at headache onset--repeat in 2hrs if remains No Start Date 07/21/2012 Inactive propranolol 60 mg Tab RxNorm: 811053 1 Tablet(s) PO BID No Start Da te 08/28/2009 Inactive Cholestyramine Light 4 gram Oral Powder RxNorm: 7944098 1 Unit Dose PO QD in water No Start Date 07/21/2012 Inactive nystatin 100,000 unit/g Topical Powder RxNorm: 645221 Applicati on TOP BID No Start Date 07/21/2012 Inactive vitamin A21-fyrqn acid sublingual RxNorm: sublingual No Start Date 07/05/2013 Inactive cyclobenzaprine 5 mg tablet RxNorm: 876933 1/2-1 Tablet (s) PO TID as needed for muscle spasm No Start Date 07/18/2017 Inactive tramadol 50 mg tablet RxNorm: 673165 2 Tablet(s) PO TID as need ed for pain No Start Date 09/01/2014 Inactive aspirin 81 mg Tab RxNorm: 804730 1 Tablet(s) PO QOD No Start Date 04/2013 Inactive Vitamin B12 1000mcg Tablet RxNorm: 1 Tablet(s) PO QD No Start Date 07/18/2017 Inactive cholestyramine (with sugar) 4 gram oral powder RxNorm: 12340 3 1 Unit(s) PO QD as needed No Start Date 05/20/2018 Inactive ProAir HFA 90 mcg/Actuation Aerosol Inhaler RxNorm: 714876 2 Puff(s) INH Q4H prn shortness of breath No Start Date 07/21/2012 Inactive pravastatin 10 mg Tab RxNorm: 919311 1 Tablet(s) PO QD No Start Date 07/21/2012 Inactive gabapentin 800 mg Tab RxNorm: 986864 1 Tablet(s) PO BID No Start Da te 06/03/2011 Inactive Endocet 10 mg-325 mg Tab RxNorm: 1062841 1 Tablet(s) PO TID No Star t Date 06/02/2009 Inactive Naproxen 500 mg Tab RxNorm: 421665 1 Tablet(s) PO BID No Start Date 0 04/05/2010 Inactive Valium 10 mg Tab RxNorm: 095212 1 Tablet(s) PO BID No Start Date 07/04 Inactive enalapril maleate 5 mg Tab RxNorm: 538446 1 Tablet(s) PO QD No Star t Date 11/15/2010 Inactive doxepin 10 mg capsule RxNorm: 7931124 2 Capsule(s) PO QHS No Start Date 09/17/2018 Inactive MS Contin 15 mg Tab RxNorm: 526068 1 Tablet(s) PO BID No Start Date 0 09/18/2010 Inactive buspirone 5 mg tablet RxNorm: 316038 1 Tablet(s) PO TID No Start Da te 12/01/2013 Inactive Carlotta 3 Fish Oil Cap RxNorm: 1 Capsule(s) PO QD No Start Date 07/03 Inactive enalapril maleate 5 mg Tab RxNorm: 151899 1/2 Tablet(s) PO QD No St art Date 03/07/2011 Inactive Lyrica 75 mg capsule RxNorm: 517743 1 Capsule(s) PO QHS No Start Da te 02/08/2014 Inactive Lopressor 100 mg tablet RxNorm: 870626 1 Tablet(s) PO BID No Start Date 06/08/2018 Inactive Lantus Solostar U-100 Insulin 100 unit/mL (3 mL) subcu taneous pen RxNorm: 134641 45 Unit(s) SQ QAM No Start Date 05/20/2018 Inactive aspirin 81 mg tablet RxNorm: 960570 1 Tablet(s) PO QD No Start Date 0 09/14/2015 Inactive diltiazem CD 240 mg capsule,extended release 24 hr RxNorm: 8 84725 1 Capsule(s) PO QD No Start Date 05/25/2019 Inactive insulin NPH isophane U-100 human subcutaneous RxNorm: 238886 beckwith bcutaneous No Start Date 04/20/2019 Inactive sumatriptan 100 mg tablet RxNorm: 888811 1 Tablet(s) PO at headache onset. May repeat 1 in two hours if headache remains. Max of 2 per 24 hours No Start Date 04/01/2018 Inactive gabapentin 300 mg capsule RxNorm: 375078 1 Capsule(s) PO QHS No Sta rt Date 02/04/2018 Inactive Topamax 25 mg Tab RxNorm: 274169 Oral No Start Date 03/07/2011 In active Senokot-S 8.6 mg-50 mg Tab RxNorm: 2788607 1 Tablet(s) PO QD No Sta rt Date 03/07/2011 Inactive metformin ER 500 mg 24 hr tablet,extended release RxNorm: 18 38577 1 Tablet(s) PO QD No Start Date 05/20/2018 Inactive Symbicort 80 mcg-4.5 mcg/actuation HFA Aerosol Inhaler RxNor m: 5495669 2 Puff(s) INH BID No Start Date 04/05/2013 Inactive metoprolol tartrate 25 mg tablet RxNorm: 119616 1 Tablet(s) PO BID No Start Date 05/20/2019 Inactive propranolol 60 mg Tab RxNorm: 456430 1/2 Tablet(s) PO BID No Start Date 07/21/2012 Inactive metformin ER 500 mg 24 hr tablet,extended release RxNorm: 18 53899 2 Tablet(s) PO QD No Start Date 12/16/2017 Inactive Insulin Syringe 1 mL 29 gauge x 1/2" RxNorm: 2 s yringes daily with insulin Dx: E11.65 No Start Date 10/07/2018 Inactive Amitriptyline 75 mg Tab RxNorm: 603557 1 Tablet(s) PO QHS No Start Date 10/23/2009 Inactive donepezil 10 mg Tab RxNorm: 286831 1 Tablet(s) PO QD No Start Date Inactive Lantus Solostar U-100 Insulin 100 unit/mL (3 mL) subcu taneous pen RxNorm: 096920 36 Unit(s) SQ QAM No Start Date 12/24/2017 Inactive Miacalcin 200 unit/Actuation Nasal [place] Aerosol RxNorm: 261 204 1 [place] NASAL QD Alternate nostrils each day No Start Date 04/05/2010 Inactive Amitriptyline 150 mg Tab RxNorm: 166638 1 Tablet(s) PO QHS No Start Date 01/04/2010 Inactive Bystolic 5 mg tablet RxNorm: 847256 1 Tablet(s) PO QD No Start Date 0 08/13/2012 Inactive Aricept 10 mg Tab RxNorm: 288352 1 Tablet(s) PO QD No Start Date 11/03 Inactive Lantus Solostar U-100 Insulin 100 unit/mL (3 mL) subcu taneous pen RxNorm: 968751 50 Unit(s) SQ QAM No Start Date 08/27/2018 Inactive albuterol sulfate 2.5 mg/3 mL (0.083 %) Neb Solution RxNorm: 831074 1 Unit Dose INH QID as needed No Start Date 08/23/2015 Inactive Symbicort 160 mcg-4.5 mcg/actuation HFA Aerosol Inhaler RxNo rm: 7193034 2 Puff(s) INH BID No Start Date 12/03/2011 Inactive Savella 50 mg Tab RxNorm: 252861 1 Tablet(s) PO BID No Start Date 04/2010 Inactive amitriptyline 100 mg Tab RxNorm: 166118 1 1/2 Tablet(s) PO QHS No S tart Date 06/19/2011 Inactive nystatin 100,000 unit/g Topical Cream RxNorm: 330248 Ap plication TOP BID to rash for 2-4 weeks No Start Date 01/14/2011 Inactive Trelegy Ellipta 100 mcg-62.5 mcg-25 mcg powder for inhalatio n RxNorm: 2163022 1 Puff(s) INH QD No Start Date 12/16/2017 Inactive Lyrica 150 mg capsule RxNorm: 627451 1 Capsule(s) PO QHS No Start D ate 12/04/2015 Inactive sennosides 8.6 mg tablet RxNorm: 404087 1 Tablet(s) PO BID No Start Date 09/07/2018 Inactive metformin ER 500 mg tablet,extended release 24 hr RxNorm: 86 0975 1 Tablet(s) PO QD No Start Date 10/22/2017 Inactive Fish Oil 1,000 mg Cap RxNorm: 1 Capsule(s) PO QD No Start Date 06/2011 Inactive Zyrtec 10 mg Tab RxNorm: 4574527 1 Tablet(s) PO QD No Start Date 07/03 Inactive albuterol sulfate HFA 90 mcg/actuation aerosol inhaler RxNor m: 3099746 2 Puff(s) INH Q4H as needed for cough No Start Date 09/30/2013 Inactive trazodone 150 mg tablet RxNorm: 117612 1 Tablet(s) PO QHS No Start Date 07/21/2012 Inactive Spiriva with HandiHaler 18 mcg & inhalation capsules RxNorm: 119565 1 Capsule(s) INH QD No Start Date 04/05/2013 Inactive Coreg 3.125 mg Tab RxNorm: 714656 1 Tablet(s) PO BID No Start Date Inactive Phenergan 25 mg Tab RxNorm: 618529 Tablet(s) PO PRN MIGRAINE No Sta rt Date 11/21/2009 Inactive Vitamin D 50,000 unit Cap RxNorm: 7754860 1 Capsule(s) PO QW No Sta rt Date 03/07/2011 Inactive Januvia 100 mg tablet RxNorm: 754593 1 Tablet(s) PO QD No Start Date 10/25/2015 Inactive Eliquis 5 mg tablet RxNorm: 4450025 1 Tablet(s) PO BID No Start Date 08/19/2018 Inactive Advair Diskus 500 mcg-50 mcg/Dose for Inhalation RxNorm: 964991 1 INH BID No Start Date 07/21/2012 Inactive Vitamin D3 5,000 unit tablet RxNorm: 542929 1 Tablet(s) PO QD No St art Date 07/18/2017 Inactive Amaryl 2 mg tablet RxNorm: 606064 1 Tablet(s) PO QD No Start Date 06/2015 Inactive Actos 30 mg tablet RxNorm: 702084 1 Tablet(s) PO QD No Start Date Inactive promethazine 25 mg tablet RxNorm: 273119 1 Tablet(s) PO Q4H prn N/V No Start Date 07/21/2012 Inactive ProAir HFA 90 mcg/actuation Aerosol Inhaler RxNorm: 241601 2 Puff(s) INH Q4H prn dyspnea No Start Date 07/21/2012 Inactive Dexilant 60 mg Capsule RxNorm: 273818 1 Capsule(s) PO QD No Start D ate 01/27/2012 Inactive Lantus Solostar U-100 Insulin 100 unit/mL (3 mL) subcu taneous pen RxNorm: 393264 38 Unit(s) SQ QAM No Start Date 05/20/2018 Inactive Valium 10 mg Tab RxNorm: 213045 1 Tablet(s) PO QHS AND PRN No Start Date 10/24/2009 Inactive ZOFRAN ODT 8 mg disintegrating tablet RxNorm: 748998 1 Tablet(s ) PO Q6H No Start [...] Date S ervice Location MICROALBUMIN URINE RANDOM 82875 MICRL MG/L 14.9 MG/L Unknown MICROALBUMIN URINE RANDOM 20100 XM.ALB/CRE 6.1 MG/GCR Unknown MICROALBUMIN URINE RANDOM 37245 CREAT MG/D 243 MG/DL Unknown MICROALBUMIN URINE RANDOM 40571 CRE/100 2.43 G/L 03/05 Unknown PROTEIN/CREAT URINE WITH RATIO 19080|19527 PROT R U 14 MG/D L 04/01/2014 Unknown PROTEIN/CREAT URINE WITH RATIO 81883|50269 CREAT R U 254 MG/ DL 04/01/2014 Unknown PROTEIN/CREAT URINE WITH RATIO 37928|71183 XRATIO P/C 55 MG/ G 04/01/2014 Unknown URINALYSIS 17433 PROTEIN UR NEG 04/28/2010 Unknown URINALYSIS 30897 HEMGLBN UR NEG 04/28/2010 Unknown URINALYSIS 11800 GLUCOSE UR NEG 04/28/2010 Unknown URINALYSIS 68870 KETONES UR NEG 04/28/2010 Unknown URINALYSIS 08398 PH U 5.5 04/28/2010 Unknown URINALYSIS 79010 SP GR U 1.025 04/28/2010 Unknown URINALYSIS 84724 BILRUBN UR NEG 04/28/2010 Unknown URINALYSIS 33015 LEUKO UR 2+ 04/28/2010 Unknown URINALYSIS 19783 NITRITE UR NEG 04/28/2010 Unknown MICR CUL? [id number] WBC/HPF 6-10 04/28/2010 Unknown MICR CUL? [id number] RBC/HPF 0-5 04/28/2010 Unknown MICR CUL? [id number] HYAL CAST 16-25 04/28/2010 Unknown MICR CUL? 1909843 SP TO YOLIE? NO 04/28/2010 Unknown MICR CUL? [id number] APPEAR UR NORMAL 04/28/2010 Unknown MICR CUL? [id number] SQ EPI/LPF FEW 04/28/2010 Unknown Procedures Procedure Codes Date URINALYSIS NONAUTO W/O SCOPE CPT-4: 38357 04/16/2019 URINE CULTURE/ COLONY COUNT CPT-4: 63664 04/16/2019 CEFTRIAXONE SODIUM INJECTION CPT-4: J0696 04/16/2019 THER/PROPH/DIAG INJ SC/IM CPT-4: 55723 04/16/2019 DRAIN/INJECT JOINT/BURSA CPT-4: 75233 01/22/2019 TRIAMCINOLONE ACET INJ NOS CPT-4: J3301 01/22/2019 DEXAMETHASONE SODIUM PHOS CPT-4: J1100 01/22/2019 URINE CULTURE/ COLONY COUNT CPT-4: 83134 01/07/2019 URINALYSIS NONAUTO W/O SCOPE CPT-4: 21874 01/07/2019 CEFTRIAXONE SODIUM INJECTION CPT-4: J0696 01/07/2019 THER/PROPH/DIAG INJ SC/IM CPT-4: 39574 01/07/2019 FLU VACC PRSV FREE INC ANTIG 65 AND OLDER CPT-4: 86633 12/24/2018 FLU VACC PRSV FREE INC ANTIG 65 AND OLDER CPT-4: 23986 12/24/2018 ADMIN INFLUENZA VIRUS VAC CPT-4: G0008 12/24/2018 THER/PROPH/DIAG INJ SC/IM CPT-4: 39981 11/04/2018 KETOROLAC TROMETHAMINE INJ CPT-4: J1885 11/04/2018 PROMETHAZINE HCL INJECTION CPT-4: J2550 11/04/2018 PPPS, subseq visit CPT-4: G0439 09/18/2018 THER/PROPH/DIAG INJ SC/IM CPT-4: 56250 04/01/2018 KETOROLAC TROMETHAMINE INJ CPT-4: J1885 04/01/2018 PROMETHAZINE HCL INJECTION CPT-4: J2550 04/01/2018 URINE CULTURE/ COLONY COUNT CPT-4: 75178 03/17/2018 URINALYSIS NONAUTO W/O SCOPE CPT-4: 71185 03/17/2018 FLU VACC PRSV FREE INC ANTIG 65 AND OLDER CPT-4: 39668 12/17/2017 PNEUMOCOCCAL VACC 23 RANDALL IM CPT-4: 92091 12/17/2017 ADMIN INFLUENZA VIRUS VAC CPT-4: G0008 12/17/2017 ADMIN PNEUMOCOCCAL VACCINE CPT-4: G0009 12/17/2017 PPPS, subseq visit CPT-4: G0439 09/17/2017 THER/PROPH/DIAG INJ SC/IM CPT-4: 79123 08/26/2017 KETOROLAC TROMETHAMINE INJ CPT-4: J1885 08/26/2017 PROMETHAZINE HCL INJECTION CPT-4: J2550 08/26/2017 URINALYSIS NONAUTO W/O SCOPE CPT-4: 43663 07/19/2017 URINE CULTURE/ COLONY COUNT CPT-4: 33308 07/19/2017 CEFTRIAXONE SODIUM INJECTION CPT-4: J0696 07/19/2017 THER/PROPH/DIAG INJ SC/IM CPT-4: 02346 07/19/2017 THER/PROPH/DIAG INJ SC/IM CPT-4: 87737 07/19/2017 TRIAMCINOLONE ACET INJ NOS CPT-4: J3301 07/19/2017 PRESCRIP TRANSMIT VIA ERX SY CPT-4: G8553 05/07/2017 PRESCRIP TRANSMIT VIA ERX SY CPT-4: G8553 02/22/2017 PRESCRIP TRANSMIT VIA ERX SY CPT-4: G8553 01/23/2017 FLU VACC PRSV FREE INC ANTIG 65 AND OLDER CPT-4: 97756 12/20/2016 PNEUMOCOCCAL VACC 13 RANDALL IM CPT-4: 95744 12/20/2016 ADMIN INFLUENZA VIRUS VAC CPT-4: G0008 12/20/2016 ADMIN PNEUMOCOCCAL VACCINE CPT-4: G0009 12/20/2016 URINALYSIS NONAUTO W/O SCOPE CPT-4: 50560 10/08/2016 URINE CULTURE/ COLONY COUNT CPT-4: 85738 10/08/2016 PRESCRIP TRANSMIT VIA ERX SY CPT-4: G8553 10/08/2016 PRESCRIP TRANSMIT VIA ERX SY CPT-4: G8553 09/19/2016 PRESCRIP TRANSMIT VIA ERX SY CPT-4: G8553 08/20/2016 PRESCRIP TRANSMIT VIA ERX SY CPT-4: G8553 02/29/2016 KETOROLAC TROMETHAMINE INJ CPT-4: J1885 02/02/2016 THER/PROPH/DIAG INJ SC/IM CPT-4: 29872 02/02/2016 PROMETHAZINE HCL INJECTION CPT-4: J2550 02/02/2016 PRESCRIP TRANSMIT VIA ERX SY CPT-4: G8553 02/02/2016 FLU VACC PRSV FREE INC ANTIG 65 AND OLDER CPT-4: 68492 01/05/2016 PPPS, subseq visit CPT-4: G0439 01/05/2016 ADMIN INFLUENZA VIRUS VAC CPT-4: G0008 01/05/2016 URINE CULTURE/ COLONY COUNT CPT-4: 46923 12/05/2015 URINALYSIS NONAUTO W/O SCOPE CPT-4: 65611 12/05/2015 PRESCRIP TRANSMIT VIA ERX SY CPT-4: G8553 12/05/2015 PRESCRIP TRANSMIT VIA ERX SY CPT-4: G8553 10/26/2015 URINALYSIS NONAUTO W/O SCOPE CPT-4: 34785 10/05/2015 URINE CULTURE/ COLONY COUNT CPT-4: 18566 10/05/2015 PRESCRIP TRANSMIT VIA ERX SY CPT-4: G8553 10/05/2015 MD SERVICE REQUIRED FOR PMD CPT-4: G0372 09/15/2015 PRESCRIP TRANSMIT VIA ERX SY CPT-4: G8553 09/15/2015 SPECIAL REPORTS OR FORMS CPT-4: 56958 08/25/2015 PRESCRIP TRANSMIT VIA ERX SY CPT-4: G8553 07/05/2015 URINALYSIS NONAUTO W/O SCOPE CPT-4: 56940 03/30/2015 ASSAY, GLUCOSE, BLOOD QUANT CPT-4: 62290 03/30/2015 URINE CULTURE/ COLONY COUNT CPT-4: 81003 03/30/2015 PRESCRIP TRANSMIT VIA ERX SY CPT-4: G8553 03/30/2015 PRESCRIP TRANSMIT VIA ERX SY CPT-4: G8553 02/03/2015 FLU VACC PRSV FREE INC ANTIG 65 AND OLDER CPT-4: 41849 12/29/2014 ADMIN INFLUENZA VIRUS VAC CPT-4: G0008 12/29/2014 PRESCRIP TRANSMIT VIA ERX SY CPT-4: G8553 12/29/2014 PRESCRIP TRANSMIT VIA ERX SY CPT-4: G8553 09/02/2014 PROTEIN/CREAT URINE WITH RATIO CPT-4: 68368|62100 5 MICROALBUMIN QUANTITATIVE CPT-4: 21989 04/01/2014 PRESCRIP TRANSMIT VIA ERX SY CPT-4: G8553 03/16/2014 PRESCRIP TRANSMIT VIA ERX SY CPT-4: G8553 03/09/2014 THER/PROPH/DIAG INJ SC/IM CPT-4: 60165 03/01/2014 TRIAMCINOLONE ACET INJ NOS CPT-4: J3301 03/01/2014 PRESCRIP TRANSMIT VIA ERX SY CPT-4: G8553 02/09/2014 URINE CULTURE/ COLONY COUNT CPT-4: 61916 10/30/2013 URINALYSIS NONAUTO W/O SCOPE CPT-4: 12178 10/21/2013 URINE CULTURE/ COLONY COUNT CPT-4: 25621 10/21/2013 DESTRUCT PREMALG LESION (Cryosurgery) CPT-4: 39550 PRESCRIP TRANSMIT VIA ERX SY CPT-4: G8553 10/05/2013 URINALYSIS NONAUTO W/O SCOPE CPT-4: 04241 08/04/2013 URINE CULTURE/ COLONY COUNT CPT-4: 39929 08/04/2013 PRESCRIP TRANSMIT VIA ERX SY CPT-4: G8553 08/04/2013 THER/PROPH/DIAG INJ SC/IM CPT-4: 78104 07/13/2013 TRIAMCINOLONE ACET INJ NOS CPT-4: J3301 07/13/2013 PRESCRIP TRANSMIT VIA ERX SY CPT-4: G8553 05/27/2013 URINALYSIS NONAUTO W/O SCOPE CPT-4: 51930 05/25/2013 URINE CULTURE/ COLONY COUNT CPT-4: 14590 05/25/2013 THER/PROPH/DIAG INJ SC/IM CPT-4: 41136 05/04/2013 VITAMIN B12 INJECTION CPT-4: J3420 05/04/2013 THER/PROPH/DIAG INJ SC/IM CPT-4: 11036 04/17/2013 VITAMIN B12 INJECTION CPT-4: J3420 04/17/2013 THER/PROPH/DIAG INJ SC/IM CPT-4: 40897 04/17/2013 METHYLPREDNISOLONE 40 MG INJ CPT-4: J1030 04/17/2013 TRIAMCINOLONE ACET INJ NOS CPT-4: J3301 04/17/2013 URINALYSIS NONAUTO W/O SCOPE CPT-4: 62943 04/06/2013 URINE CULTURE/ COLONY COUNT CPT-4: 14709 04/06/2013 PRESCRIP TRANSMIT VIA ERX SY CPT-4: G8553 04/06/2013 KETOROLAC TROMETHAMINE INJ CPT-4: J1885 06/25/2012 PROMETHAZINE HCL INJECTION CPT-4: J2550 06/25/2012 THER/PROPH/DIAG INJ SC/IM CPT-4: 07032 06/25/2012 THER/PROPH/DIAG INJ SC/IM CPT-4: 89834 06/24/2012 METHYLPREDNISOLONE 40 MG INJ CPT-4: J1030 06/24/2012 TRIAMCINOLONE ACET INJ NOS CPT-4: J3301 06/24/2012 URINE CULTURE/ COLONY COUNT CPT-4: 48449 06/24/2012 THER/PROPH/DIAG INJ SC/IM CPT-4: 83330 05/20/2012 KETOROLAC TROMETHAMINE INJ CPT-4: J1885 05/20/2012 THER/PROPH/DIAG INJ SC/IM CPT-4: 45955 05/20/2012 PROMETHAZINE HCL INJECTION CPT-4: J2550 05/20/2012 DRAIN/INJECT JOINT/BURSA CPT-4: 06725 02/13/2012 METHYLPREDNISOLONE 40 MG INJ CPT-4: J1030 02/13/2012 TRIAMCINOLONE ACET INJ NOS CPT-4: J3301 02/13/2012 THER/PROPH/DIAG INJ SC/IM CPT-4: 42325 11/14/2011 METHYLPREDNISOLONE 40 MG INJ CPT-4: J1030 11/14/2011 TRIAMCINOLONE ACET INJ NOS CPT-4: J3301 11/14/2011 THER/PROPH/DIAG INJ SC/IM CPT-4: 96291 09/12/2011 KETOROLAC TROMETHAMINE INJ CPT-4: J1885 09/12/2011 THER/PROPH/DIAG INJ SC/IM CPT-4: 14753 08/09/2011 METHYLPREDNISOLONE 40 MG INJ CPT-4: J1030 08/09/2011 TRIAMCINOLONE ACET INJ NOS CPT-4: J3301 08/09/2011 URINE CULTURE/ COLONY COUNT CPT-4: 53685 07/03/2011 URINE CULTURE/ COLONY COUNT CPT-4: 17092 06/04/2011 THER/PROPH/DIAG INJ SC/IM CPT-4: 36565 05/03/2011 METHYLPREDNISOLONE 40 MG INJ CPT-4: J1030 05/03/2011 TRIAMCINOLONE ACET INJ NOS CPT-4: J3301 05/03/2011 URINALYSIS NONAUTO W/O SCOPE CPT-4: 63161 01/24/2011 URINE CULTURE/ COLONY COUNT CPT-4: 42446 01/24/2011 FLUZONE, 5ML (Medicare) CPT-4: Q2038 01/02/2011 ADMIN INFLUENZA VIRUS VAC CPT-4: G0008 01/02/2011 ASSAY, GLUCOSE, BLOOD QUANT CPT-4: 76769 12/07/2010 URINE CULTURE/ COLONY COUNT CPT-4: 71479 11/02/2010 THER/PROPH/DIAG INJ SC/IM CPT-4: 31672 10/18/2010 METHYLPREDNISOLONE 40 MG INJ CPT-4: J1030 10/18/2010 TRIAMCINOLONE ACET INJ NOS CPT-4: J3301 10/18/2010 TRIAMCINOLONE ACET INJ NOS CPT-4: J3301 05/11/2010 METHYLPREDNISOLONE 40 MG INJ CPT-4: J1030 05/11/2010 THER/PROPH/DIAG INJ SC/IM CPT-4: 67763 05/11/2010 TRIAMCINOLONE ACET INJ NOS CPT-4: J3301 02/09/2010 METHYLPREDNISOLONE 40 MG INJ CPT-4: J1030 02/09/2010 THER/PROPH/DIAG INJ SC/IM CPT-4: 66798 02/09/2010 SERVICE REQUIRED FOR PMD CPT-4: G0372 02/09/2010 FLU VACCINE 3 YRS & > IM UP 64 CPT-4: 45559 0 PNEUMOCOCCAL VACC 23 RANDALL IM CPT-4: 73892 12/07/2009 ADMIN INFLUENZA VIRUS VAC CPT-4: G0008 12/07/2009 ADMIN PNEUMOCOCCAL VACCINE CPT-4: G0009 12/07/2009 TRIAMCINOLONE ACET INJ NOS CPT-4: J3301 05/26/2009 THER/PROPH/DIAG INJ SC/IM CPT-4: 21670 05/26/2009 METHYLPREDNISOLONE 80 MG INJ CPT-4: J1040 [...] 1: 114/72 Code: 8480-6 BMI: 37.8 Code: 07198-0 Heart Rate 1: 72 bpm Height: 5'3" [...] 1: 106/68 Code: 8480-6 BMI: 35.7 Code: 36223-6 Heart Rate 1: 72 bpm Height: 5'4" Respiratory Rate: 20 bpm SpO2: 98% Tempera ture: 36.7 (C) / 98.0 (F) Weight: 208 lbs 04/16/2018 Blood Pressure 1: 132/82 Code: 8480-6 BMI: 37.9 Code: 56255-1 Heart Rate 1: 72 bpm Height: 5'4" Respiratory Rate: 20 bpm SpO2: 96% Tempera ture: 37.1 (C) / 98.8 (F) Weight: 221 lbs 04/01/2018 Blood Pressure 1: 150/90 Code: 8480-6 Heart Rate 1: 72 bpm Respiratory Rate: 22 bpm SpO2: 95% Temperature: 36.4 (C) / 97.6 (F) We ight: 216 lbs 03/06/2018 Blood Pressure 1: 126/78 Code: 8480-6 BMI: 37.4 Code: 20930-1 Heart Rate 1: 68 bpm Height: 5'4" [...] ight: 222 lbs 12/25/2017 BMI: 37.8 Code: 01075-8 Heart Rate 1: 76 bpm Height: 5 '4" Respiratory Rate: 20 bpm SpO2: 96% Temperature: 37.3 (C) / 99.2 (F) Weight: 220 lbs 12/17/2017 Blood Pressure 1: 132/78 Code: 8480-6 BMI: 37.2 Code: 18160-2 Heart Rate 1: 88 bpm Height: 5'4" Respiratory Rate: 20 bpm SpO2: 96% Tempera ture: 37.3 (C) / 99.2 (F) Weight: 217 lbs 10/30/2017 Blood Pressure 1: 114/68 Code: 8480-6 BMI: 36.4 Code: 28849-8 Heart Rate 1: 72 bpm Height: 5'4" Respiratory Rate: 22 bpm SpO2: 96% Tempera ture: 36.8 (C) / 98.2 (F) Weight: 212 lbs 10/23/2017 Blood Pressure 1: 124/78 Code: 8480-6 Heart Rate 1: 72 bpm Respiratory Rate: 24 bpm SpO2: 94% Temperature: 36.6 (C) / 97.9 (F) We ight: 212 lbs 09/17/2017 Blood Pressure 1: 128/82 Code: 8480-6 BMI: 37.4 Code: 33117-1 Heart Rate 1: 72 bpm Height: 5'4" Respiratory Rate: 20 bpm SpO2: 96% Tempera ture: 37.0 (C) / 98.6 (F) Weight: 218 lbs 07/19/2017 Blood Pressure 1: 136/84 Code: 8480-6 BMI: 36.6 Code: 35720-9 Heart Rate 1: 88 bpm Height: 5'4" Respiratory Rate: 20 bpm SpO2: 97% Tempera ture: 36.7 (C) / 98.0 (F) Weight: 213 lbs 05/29/2017 Blood Pressure 1: 136/82 Code: 8480-6 BMI: 36.7 Code: 31384-9 Heart Rate 1: 72 bpm Height: 5'4" Respiratory Rate: 20 bpm SpO2: 97% Tempera ture: 36.9 (C) / 98.4 (F) Weight: 214 lbs 05/07/2017 Blood Pressure 1: 122/80 Code: 8480-6 BMI: 37.1 Code: 57235-3 Heart Rate 1: 80 bpm Height: 5'4" Respiratory Rate: 24 bpm SpO2: 96% Tempera ture: 36.1 (C) / 97.0 (F) Weight: 216 lbs 03/18/2017 BMI: 36.7 Code: 32470-8 Heart Rate 1: 80 bpm Height: 5 '4" Respiratory Rate: 22 bpm SpO2: 95% Temperature: 36.9 (C) / 98.4 (F) Weight: 214 lbs 02/27/2017 Blood Pressure 1: 146/94 Code: 8480-6 BMI: 36.6 Code: 76486-2 Heart Rate 1: 76 bpm Height: 5'4" Respiratory Rate: 22 bpm SpO2: 97% Tempera ture: 36.6 (C) / 97.9 (F) Weight: 213 lbs 02/22/2017 Blood Pressure 1: 126/90 Code: 8480-6 BMI: 36.4 Code: 21739-0 Heart Rate 1: 84 bpm Height: 5'4" Respiratory Rate: 22 bpm SpO2: 95% Tempera ture: 36.9 (C) / 98.4 (F) Weight: 212 lbs 01/23/2017 Blood Pressure 1: 146/82 Code: 8480-6 BMI: 37.6 Code: 76883-6 Heart Rate 1: 96 bpm Height: 5'4" Respiratory Rate: 20 bpm SpO2: 96% Tempera ture: 36.9 (C) / 98.4 (F) Weight: 219 lbs 12/20/2016 Blood Pressure 1: 126/70 Code: 8480-6 BMI: 37.2 Code: 58591-6 Heart Rate 1: 76 bpm Height: 5'4" Respiratory Rate: 22 bpm SpO2: 95% Tempera ture: 36.6 (C) / 97.8 (F) Weight: 217 lbs 10/08/2016 Blood Pressure 1: 128/82 Code: 8480-6 BMI: 36.9 Code: 75933-4 Heart Rate 1: 76 bpm Height: 5'4" Respiratory Rate: 20 bpm SpO2: 95% Tempera ture: 37.0 (C) / 98.6 (F) Weight: 215 lbs 09/19/2016 Blood Pressure 1: 144/78 Code: 8480-6 BMI: 37.8 Code: 95180-0 Heart Rate 1: 76 bpm Height: 5'4" Respiratory Rate: 22 bpm SpO2: 95% Tempera ture: 37.0 (C) / 98.6 (F) Weight: 220 lbs 08/20/2016 Blood Pressure 1: 140/86 Code: 8480-6 BMI: 37.4 Code: 79929-6 Heart Rate 1: 80 bpm Height: 5'4" Respiratory Rate: 20 bpm SpO2: 95% Tempera ture: 36.9 (C) / 98.4 (F) Weight: 218 lbs 06/19/2016 Blood Pressure 1: 124/78 Code: 8480-6 BMI: 37.8 Code: 56953-7 Heart Rate 1: 74 bpm Height: 5'4" Respiratory Rate: 24 bpm SpO2: 96% Tempera ture: 36.9 (C) / 98.4 (F) Weight: 220 lbs 06/04/2016 Blood Pressure 1: 12478 Code: 8480-6 BMI: 38.8 Code: 06301-2 Heart Rate 1: 72 bpm Height: 5'4" Respiratory Rate: 24 bpm SpO2: 95% Tempera ture: 36.8 (C) / 98.2 (F) Weight: 226 lbs 05/02/2016 Blood Pressure 1: 136/90 Code: 8480-6 BMI: 37.6 Code: 88430-6 Heart Rate 1: 72 bpm Height: 5'4" Respiratory Rate: 24 bpm SpO2: 96% Tempera ture: 36.9 (C) / 98.4 (F) Weight: 219 lbs 04/03/2016 Blood Pressure 1: 126/78 Code: 8480-6 BMI: 38.1 Code: 11445-1 Heart Rate 1: 72 bpm Height: 5'4" Respiratory Rate: 22 bpm SpO2: 94% Tempera ture: 36.9 (C) / 98.4 (F) Weight: 222 lbs 02/29/2016 Blood Pressure 1: 132/78 Code: 8480-6 Heart Rate 1: 78 bpm Height: Respiratory Rate: 24 bpm SpO2: 95% Temperature: 36.4 (C) / 97.6 (F) We ight: 02/02/2016 Blood Pressure 1: 124/78 Code: 8480-6 BMI: 37.6 Code: 31915-5 Heart Rate 1: 76 bpm Height: 5'4" Respiratory Rate: 20 bpm SpO2: 95% Tempera ture: 36.8 (C) / 98.2 (F) Weight: 219 lbs 01/05/2016 Blood Pressure 1: 126/70 Code: 8480-6 BMI: 37.1 Code: 66687-8 Heart Rate 1: 76 bpm Height: 5'4" Respiratory Rate: 20 bpm Temperature: 36 .6 (C) / 97.8 (F) Weight: 216 lbs 12/05/2015 Blood Pressure 1: 126/72 Code: 8480-6 BMI: 36.9 Code: 59735-6 Heart Rate 1: 92 bpm Height: 5'4" Respiratory Rate: 20 bpm Temperature: 36 .7 (C) / 98.1 (F) Weight: 215 lbs 10/26/2015 Blood Pressure 1: 142/80 Code: 8480-6 BMI: 36.4 Code: 29462-5 Heart Rate 1: 82 bpm Height: 5'4" Respiratory Rate: 24 bpm SpO2: 92% Tempera ture: 35.9 (C) / 96.7 (F) Weight: 212 lbs 10/05/2015 Blood Pressure 1: 136/82 Code: 8480-6 Heart Rate 1: 80 bpm Respiratory Rate: 18 bpm SpO2: 98% Temperature: 35.7 (C) / 96.3 (F) We ight: 214 lbs 09/15/2015 Blood Pressure 1: 116/80 Code: 8480-6 BMI: 34.6 Code: 61748-9 Heart Rate 1: 76 bpm Height: 5'6" Respiratory Rate: 20 bpm Temperature: 36 .6 (C) / 97.9 (F) Weight: 211 lbs 08/24/2015 Blood Pressure 1: 124/80 Code: 8480-6 BMI: 34.1 Code: 96225-5 Heart Rate 1: 68 bpm Height: 5'6" Respiratory Rate: 20 bpm Temperature: 36 .8 (C) / 98.3 (F) Weight: 208 lbs 07/05/2015 Blood Pressure 1: 114/78 Code: 8480-6 BMI: 33.9 Code: 09940-7 Heart Rate 1: 80 bpm Height: 5'6" Respiratory Rate: 20 bpm Temperature: 36 .6 (C) / 97.9 (F) Weight: 207 lbs 06/06/2015 Blood Pressure 1: 122/78 Code: 8480-6 BMI: 34.1 Code: 10031-7 Heart Rate 1: 76 bpm Height: 5'6" Respiratory Rate: 24 bpm SpO2: 96% Tempera ture: 36.4 (C) / 97.6 (F) Weight: 208 lbs 05/23/2015 Blood Pressure 1: 124/78 Code: 8480-6 Heart Rate 1: 76 bpm Respiratory Rate: 24 bpm SpO2: 93% Temperature: 36.8 (C) / 98.2 (F) We ight: 212 lbs 05/05/2015 Blood Pressure 1: 136/80 Code: 8480-6 BMI: 35.4 Code: 76994-1 Heart Rate 1: 76 bpm Height: 5'6" Respiratory Rate: 28 bpm Temperature: 37 .0 (C) / 98.6 (F) Weight: 216 lbs 03/30/2015 Blood Pressure 1: 132/86 Code: 8480-6 BMI: 35.2 Code: 07409-5 Heart Rate 1: 84 bpm Height: 5'6" Respiratory Rate: 24 bpm Temperature: 36 .7 (C) / 98.0 (F) Weight: 215 lbs 02/03/2015 Blood Pressure 1: 122/74 Code: 8480-6 BMI: 35.7 Code: 78075-4 Heart Rate 1: 84 bpm Height: 5'6" Respiratory Rate: 20 bpm Temperature: 36 .9 (C) / 98.5 (F) Weight: 218 lbs 12/29/2014 Blood Pressure 1: 132/80 Code: 8480-6 BMI: 35.1 Code: 93831-3 Heart Rate 1: 80 bpm Height: 5'6" Respiratory Rate: 20 bpm Temperature: 36 .6 (C) / 97.8 (F) Weight: 214 lbs 09/02/2014 Blood Pressure 1: 128/92 Code: 8480-6 BMI: 34.7 Code: 92850-3 Heart Rate 1: 84 bpm Height: 5'6" Respiratory Rate: 26 bpm Temperature: 36 .8 (C) / 98.2 (F) Weight: 212 lbs 08/25/2014 Blood Pressure 1: 124/80 Code: 8480-6 BMI: 34.7 Code: 87584-4 Heart Rate 1: 78 bpm Height: 5'6" Respiratory Rate: 22 bpm SpO2: 97% Tempera ture: 36.6 (C) / 97.8 (F) Weight: 212 lbs 04/01/2014 Blood Pressure 1: 142/84 Code: 8480-6 BMI: 34.4 Code: 58634-1 Heart Rate 1: 74 bpm Height: 5'5" Respiratory Rate: 20 bpm Temperature: 36 .4 (C) / 97.6 (F) Weight: 207 lbs 03/16/2014 Blood Pressure 1: 142/90 Code: 8480-6 BMI: 34.6 Code: 41423-7 Heart Rate 1: 76 bpm Height: 5'5" Respiratory Rate: 24 bpm Temperature: 36 .5 (C) / 97.7 (F) Weight: 208 lbs 03/09/2014 Blood Pressure 1: 116/70 Code: 8480-6 BMI: 35.3 Code: 60143-2 Heart Rate 1: 72 bpm Height: 5'5" [...] 1: 128/86 Code: 8480-6 BMI: 34.3 Code: 84890-4 Heart Rate 1: 84 bpm Height: 5'5" Respiratory Rate: 20 bpm Temperature: 36 .7 (C) / 98.0 (F) Weight: 206 lbs 12/23/2013 Blood Pressure 1: 122/70 Code: 8480-6 BMI: 34.3 Code: 61870-4 Heart Rate 1: 68 bpm Height: 5'5" Respiratory Rate: 20 bpm Temperature: 36 .8 (C) / 98.2 (F) Weight: 206 lbs 10/05/2013 Blood Pressure 1: 118/76 Code: 8480-6 BMI: 34.1 Code: 22442-7 Heart Rate 1: 68 bpm Height: 5'5" Respiratory Rate: 20 bpm SpO2: 98% Tempera ture: 36.6 (C) / 97.9 (F) Weight: 205 lbs 08/04/2013 Blood Pressure 1: 126/82 Code: 8480-6 BMI: 33.3 Code: 69708-0 Heart Rate 1: 76 bpm Height: 5'5" Respiratory Rate: 20 bpm Temperature: 36 .8 (C) / 98.2 (F) Weight: 200 lbs 07/03/2013 Blood Pressure 1: 124/82 Code: 8480-6 BMI: 33.3 Code: 16488-8 Heart Rate 1: 72 bpm Height: 5'5" Respiratory Rate: 22 bpm Temperature: 36 .1 (C) / 97.0 (F) Weight: 200 lbs 05/27/2013 Blood Pressure 1: 12682 Code: 8480-6 Heart Rate 1: 74 bpm Respiratory Rate: 20 bpm Temperature: 36.0 (C) / 96.8 (F) Weight: 199 lbs 04/06/2013 Blood Pressure 1: 118/80 Code: 8480-6 BMI: 35.2 Code: 87555-0 Heart Rate 1: 80 bpm Height: 5'4" Respiratory Rate: 20 bpm Temperature: 37 .4 (C) / 99.3 (F) Weight: 205 lbs 11/10/2012 Blood Pressure 1: 128/82 Code: 8480-6 Heart Rate 1: 84 bpm Respiratory Rate: 20 bpm Temperature: 36.7 (C) / 98.0 (F) Weight: 199 lbs 09/02/2012 Blood Pressure 1: 116/82 Code: 8480-6 BMI: 34.2 Code: 83321-5 Heart Rate 1: 88 bpm Height: 5'4" Respiratory Rate: 22 bpm Temperature: 36 .6 (C) / 97.8 (F) Weight: 199 lbs 08/04/2012 Blood Pressure 1: 128/74 Code: 8480-6 BMI: 34.0 Code: 57707-8 Heart Rate 1: 92 bpm Height: 5'4" Respiratory Rate: 20 bpm Temperature: 36 .4 (C) / 97.5 (F) Weight: 198 lbs 07/21/2012 Blood Pressure 1: 124/86 Code: 8480-6 Heart Rate 1: 116 bpm Respiratory Rate: 24 bpm Temperature: 36.8 (C) / 98.2 (F) 07/02/2012 Blood Pressure 1: 116/88 Code: 8480-6 BMI: 33.6 Code: 72299-6 Heart Rate 1: 76 bpm Height: 5'4" Respiratory Rate: 20 bpm Temperature: 36 .8 (C) / 98.3 (F) Weight: 196 lbs 06/24/2012 Blood Pressure 1: 124/80 Code: 8480-6 BMI: 34.3 Code: 33892-8 Heart Rate 1: 72 bpm Height: 5'4" SpO2: 96% Temperature: 36.3 (C) / 97.3 (F) Weight: 200 lbs 05/20/2012 Blood Pressure 1: 116/88 Code: 8480-6 BMI: 33.8 Code: 49242-6 Heart Rate 1: 80 bpm Height: 5'4" Respiratory Rate: 22 bpm Temperature: 36 .9 (C) / 98.4 (F) Weight: 197 lbs 05/08/2012 Blood Pressure 1: 128/86 Code: 8480-6 BMI: 33.8 Code: 81272-5 Heart Rate 1: 76 bpm Height: 5'4" Respiratory Rate: 26 bpm SpO2: 95% Tempera ture: 36.1 (C) / 97.0 (F) Weight: 197 lbs 04/22/2012 Blood Pressure 1: 106/64 Code: 8480-6 BMI: 33.8 Code: 43098-7 Heart Rate 1: 70 bpm Height: 5'4" Temperature: 36.1 (C) / 97.0 (F) Weight: 197 lbs 02/13/2012 Blood Pressure 1: 126/82 Code: 8480-6 BMI: 34.7 Code: 92489-9 Heart Rate 1: 64 bpm Height: 5'4" Respiratory Rate: 20 bpm Temperature: 36 .6 (C) / 97.8 (F) Weight: 202 lbs 01/28/2012 Blood Pressure 1: 116/80 Code: 8480-6 BMI: 34.7 Code: 86803-9 Heart Rate 1: 76 bpm Height: 5'4" Respiratory Rate: 20 bpm Temperature: 36 .8 (C) / 98.3 (F) Weight: 202 lbs 12/26/2011 Blood Pressure 1: 132/82 Code: 8480-6 BMI: 36.0 Code: 66087-5 Heart Rate 1: 68 bpm Height: 5'4" Respiratory Rate: 22 bpm Temperature: 36 .7 (C) / 98.0 (F) Weight: 210 lbs 11/14/2011 Blood Pressure 1: 124/80 Code: 8480-6 BMI: 36.4 Code: 72923-0 Heart Rate 1: 76 bpm Height: 5'4" Respiratory Rate: 20 bpm Temperature: 36 .8 (C) / 98.2 (F) Weight: 212 lbs 09/12/2011 Blood Pressure 1: 108/74 Code: 8480-6 BMI: 37.1 Code: 85463-3 Heart Rate 1: 72 bpm Height: 5'4" Respiratory Rate: 20 bpm Temperature: 37 .0 (C) / 98.6 (F) Weight: 216 lbs 08/15/2011 Blood Pressure 1: 122/80 Code: 8480-6 BMI: 36.9 Code: 43749-7 Heart Rate 1: 76 bpm Height: 5'4" Respiratory Rate: 20 bpm Temperature: 36 .2 (C) / 97.1 (F) Weight: 215 lbs 08/09/2011 Blood Pressure 1: 112/78 Code: 8480-6 BMI: 36.9 Code: 28264-2 Heart Rate 1: 68 bpm Height: 5'4" Respiratory Rate: 20 bpm Temperature: 36 .7 (C) / 98.0 (F) Weight: 215 lbs 07/03/2011 Blood Pressure 1: 140/94 Code: 8480-6 BMI: 36.2 Code: 24507-9 Heart Rate 1: 68 bpm Height: 5'4" Temperature: 36.0 (C) / 96.8 (F) Weight: 211 lbs 06/04/2011 Blood Pressure 1: 124/70 Code: 8480-6 BMI: 36.7 Code: 69219-2 Heart Rate 1: 68 bpm Height: 5'4" Respiratory Rate: 20 bpm Temperature: 36 .6 (C) / 97.9 (F) Weight: 214 lbs 05/03/2011 Blood Pressure 1: 130/76 Code: 8480-6 BMI: 36.4 Code: 82307-6 Heart Rate 1: 74 bpm Height: 5'5" Temperature: 36.2 (C) / 97.2 (F) Weight: 219 lbs 04/05/2011 Blood Pressure 1: 124/86 Code: 8480-6 BMI: 35.9 Code: 86960-4 Heart Rate 1: 76 bpm Height: 5'6" Respiratory Rate: 22 bpm Temperature: 36 .3 (C) / 97.3 (F) Weight: 219 lbs 03/08/2011 Blood Pressure 1: 112/78 Code: 8480-6 BMI: 35.1 Code: 62526-8 Heart Rate 1: 80 bpm Height: 5'6" Respiratory Rate: 26 bpm Temperature: 36 .9 (C) / 98.4 (F) Weight: 214 lbs 01/24/2011 Blood Pressure 1: 110/82 Code: 8480-6 BMI: 35.6 Code: 75653-7 Heart Rate 1: 80 bpm Height: 5'6" Temperature: 36.1 (C) / 97.0 (F) Weight: 217 lbs 01/02/2011 Blood Pressure 1: 106/72 Code: 8480-6 BMI: 35.6 Code: 46675-1 Heart Rate 1: 76 bpm Height: 5'6" [...] 1: 120/74 Code: 8480-6 BMI: 35.9 Code: 12320-3 Heart Rate 1: 72 bpm Height: 5'5" Temperature: 36.3 (C) / 97.4 (F) Weight: 216 lbs 09/19/2010 Blood Pressure 1: 124/80 Code: 8480-6 BMI: 35.4 Code: 43944-4 Heart Rate 1: 76 bpm Height: 5'5" [...] 1: 122/78 Code: 8480-6 BMI: 37.4 Code: 56591-0 Heart Rate 1: 84 bpm Height: 5'5" Weight: 225 lbs Functional Status No Functional Status data Reason For Visit Reason For Visit Effective Dates Notes follow up 06/24/2019 From ER visit for le ft leg and groin pain. Pt was started on Macrobid and has a US of left leg scheduled for tomorrow. ER Report and Labs are scanned into chart. dyspnea 06/16/2019 fever 06/08/2019 fever 05/26/2019 dyspnea [...] 10/30/2017 follow up 10/23/2017 Hospital fwup from [facility] Annual Checkup 09/17/2017 Wellness Physical fo [...] follow up 10/26/2015 ER visit from at [facility] for COPD Exacerbation follow up 10/05/2015 ER Visit gait abnormality 09/15/2015 Patient requesting kelly pineda paperwork to be filled out disturbances of thinking 08/24/2015 follow up 07/05/2015 4wk fwup follow up 06/06/2015 [facility] cough 05/23/2015 follow up 05/05/2015 dyspnea 03/30/2015 [facility] needs new orde r for O2 abdominal pain 02/03/2015 cyst 12/29/2014 vs abscess follow up 09/02/2014 [facility] fw headache 08/25/2014 facial drooping follow up 04/01/2014 ER follow up 03/16/2014 1wk fwup follow up 03/09/2014 1mo fwup and bronchi tis fwup follow up 03/03/2014 2 day follow up 03/01/2014 ER follow up 02/09/2014 [facility] gastroesophageal reflux 12/23/2013 painful urination 10/30/2013 UTI [...] up 08/04/2012 2wk fwup follow up 07/21/2012 [facility]--[facility] an sore throat 07/02/2012 headache 06/25/2012 request [...] up 10/18/[address] Medrano last w [facility], having increased allergy symptoms. Would like steroid [...] 1 month f/u follow up 12/07/2009 from longterm [facility], done with PT--finished about 2wks ago follow up 11/08/2009 2wk fwup follow up 10/24/2009 hosp fwup ~generic 07/25/2009 bilateral earlobe re dness/swelling, pain radiating into neck, refill Demerol ~generic 05/26/2009 FALLING A LOT, SAVEL LA NOT HELPING FIBROMYALGIA PAIN, LT HAND LACERATION-FELL INTO NAIL 05/25/09 Encounters Encounter Performer Location Codes Date () OFFICE/OUTPATIENT VISIT EST Diagnosis: Left leg swelling[ICD10: M79.89] Diagnosis: Dyspnea[ICD10: R06.00] Belia Reid [facility] CPT-4: 9921 3 06/24/2019 ([id number]) OFFICE/OUTPATIENT VISIT EST Diagnosis: Acute bronchitis[ICD10: J20.9] Diagnosis: Colitis[ICD10: K52.9] Belia CORNELLLINE BushraMayda ANUSHKA [facility] CPT-4: 65500 06/16/2019 ([id number]) OFFICE/OUTPATIENT VISIT EST Diagnosis: Diarrhea[ICD10: R19.7] Diagnosis: Abdominal bloating[ICD10: R14.0] Belia Reid [facility] CPT- 4: 95395 06/08/2019 ([id number]) OFFICE/OUTPATIENT VISIT EST Diagnosis: Acute febrile illness[ICD10: R50.9] Diagnosis: Colitis[ICD10: K52.9] Belia Reid [facility] CPT-4: 33723 05/26/2019 ([id number]) OFFICE/OUTPATIENT VISIT EST Diagnosis: Chronic obstructive pulmonary disease, unspecified[ICD10: J44.9] Diagnosis: Pulmonary fibrosis[ICD10: J84.10] Diagnosis: Intermittent stridor[ICD10: R06.1] Diagnosis: Muscle weakness[ICD10: M62.81] Belia CORNELLLINE Bushra Mayda ZACHARYISABELLAOTONIEL [facility] CPT-4: 36816 05/13/2019 ([id number]) OFFICE/OUTPATIENT VISIT EST Diagnosis: Stridor[ICD10: R06.1] Diagnosis: COUGH[ICD10: R05] Beliahanna CORNELLLINE BushraMayda ANUSHKA Watsin [facility] CPT-4: 49278 05/06/2019 ([id number]) OFFICE/OUTPATIENT VISIT EST Diagnosis: Stridor[ICD10: R06.1] Diagnosis: Muscle, jerky movements (uncontrolled)[ICD10: G25.5] Belia REID Watsin [facility] CPT-4: 81889 04/29/2019 ([id number]) OFFICE/OUTPATIENT VISIT EST Diagnosis: Upper respiratory infection[ICD10: J06.9] Diagnosis: Flank pain[ICD10: R10.9] Diagnosis: Weight gain[ICD10: R63.5] Pattie AMBRIZ Watsin [facility] CPT-4: 80052 04/16/2019 ([id number]) OFFICE/OUTPATIENT VISIT EST Diagnosis: Generalized pruritus[ICD10: L29.9] Belia BASS MARIE Yuridia REID Watsin [facility] CPT-4: 80690 04/08/2019 ([id number]) OFFICE/OUTPATIENT VISIT EST Diagnosis: Acute bursitis of left shoulder[ICD10: M75.52] Diagnosis: Cervicalgia[ICD10: M54.2] Diagnosis: Chest wall pain[ICD10: R07.89] Belia SMITH Watsin [facility] CPT-4: 62758 01/22/2019 ([id number]) OFFICE/OUTPATIENT VISIT EST Diagnosis: Abdominal pain[ICD10: R10.9] Diagnosis: Pyelonephritis[ICD10: N12] Pattie DOMINGUEZ [facility] CPT-4: 70032 01/07/2019 ([id number]) OFFICE/OUTPATIENT VISIT EST Diagnosis: Low back pain[ICD10: M54.5] Diagnosis: Left lumbar radiculopathy[ICD10: M54.16] Diagnosis: Left flank pain[ICD10: R10.9] Diagnosis: Left lower quadrant pain[ICD10: R10.32] Diagnosis: FLU VACCINE[ICD10: Z23] Belia FREDREICK [facility] CPT-4: 90600 12/24/2018 ([id number]) OFFICE/OUTPATIENT VISIT EST Diagnosis: Migraine, unspecified, not intractable, without status migrainosus[ICD10: G43.909] Diagnosis: Fibromyalgia[ICD10: M79.7] Belia Orenilson DOMINGUEZ [facility] CPT-4: 68328 11/20/2018 ([id number]) OFFICE/OUTPATIENT VISIT EST Diagnosis: Migraine, unspecified, intractable, without status migrainosus[ICD10: G43.919] Diagnosis: Acute sinusitis, unspecified[ICD10: J01.90] Pattie REID DO [facility] CPT-4: 92351 11/04/2018 ([id number]) OFFICE/OUTPATIENT VISIT EST Diagnosis: Pain in left wrist[ICD10: M25.532] Diagnosis: Other dorsalgia[ICD10: M54.89] Pattie REID DO [facility] CPT-4: 90167 09/08/2018 ([id number]) OFFICE/OUTPATIENT VISIT EST Diagnosis: Acute stress reaction[ICD10: F43.0] Diagnosis: Pruritus, unspecified[ICD10: L29.9] 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, 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] Belia REID DO [facility] CPT-4: 03548 08/20/2018 ([id number]) OFFICE/OUTPATIENT VISIT EST Diagnosis: Hypotension due to drugs[ICD10: I95.2] Diagnosis: Paroxysmal atrial fibrillation[ICD10: I48.0] Diagnosis: Localized edema[ICD10: R60.0] Belia REID DO [facility] CPT-4: 16164 06/19/2018 ([id number]) OFFICE/OUTPATIENT VISIT EST Diagnosis: Generalized hyperhidrosis[ICD10: R61] Diagnosis: Essential (primary) hypertension[ICD10: I10] Diagnosis: Supraventricular tachycardia[ICD10: I47.1] Belia REID DO [facility] CPT-4: 20770 06/09/2018 ([id number]) OFFICE/OUTPATIENT VISIT EST Diagnosis: Stridor[ICD10: R06.1] Diagnosis: Dependence on supplemental oxygen[ICD10: Z99.81] Diagnosis: Weakness[ICD10: R53.1] Diagnosis: Supraventricular tachycardia[ICD10: I47.1] Belia REID DO [facility] CPT-4: 10767 05/21/2018 ([id number]) OFFICE/OUTPATIENT VISIT EST Diagnosis: Cervical disc disorder with radiculopathy, unspecified cervical region[ICD10: M50.10] Belia REID DO [facility] CPT-4: 07758 04/16/2018 ([id number]) OFFICE/OUTPATIENT VISIT EST Diagnosis: Migraine, unspecified, intractable, without status migrainosus[ICD10: G43.919] Diagnosis: Fibromyalgia[ICD10: M79.7] Pattie DOMINGUEZ [facility] CPT-4: 31792 04/01/2018 ([id number]) NURSE/OUTPATIENT VISIT EST Diagnosis: Hematuria, unspecified[ICD10: R31.9] Diagnosis: Dysuria[ICD10: R30.0] Belia REID Watsin [facility] CPT-4: 73848 03/17/2018 ([id number]) OFFICE/OUTPATIENT VISIT EST Diagnosis: Erythema intertrigo[ICD10: L30.4] Diagnosis: Chronic obstructive pulmonary disease with (acute) exacerbation[ICD10: J44.1] Diagnosis: Type 2 diabetes mellitus with hyperglycemia[ICD10: E11.65] Belia REID Watsin [facility] CPT-4: 19119 03/06/2018 ([id number]) OFFICE/OUTPATIENT VISIT EST Diagnosis: Cervicalgia[ICD10: M54.2] Pattie AMBRIZ Watsin [facility] CPT-4: 44649 02/05/2018 ([id number]) OFFICE/OUTPATIENT VISIT EST Diagnosis: Candidiasis of skin and nail[ICD10: B37.2] Diagnosis: Cervicalgia[ICD10: M54.2] Pattie CAINR Watsin [facility] CPT-4: 51827 01/20/2018 ([id number]) OFFICE/OUTPATIENT VISIT EST Diagnosis: Pain in thoracic spine[ICD10: M54.6] Diagnosis: Radiculopathy, thoracic region[ICD10: M54.14] Belia REID Watsin [facility] CPT-4: 69153 12/25/2017 ([id number]) OFFICE/OUTPATIENT VISIT EST Diagnosis: Pain in thoracic spine[ICD10: M54.6] Diagnosis: Other muscle spasm[ICD10: M62.838] Diagnosis: FLU VACCINE[ICD10: Z23] Diagnosis: PNEUMOCOCCAL VACCINE[ICD10: Z23] Belia REID DO [facility] CPT-4: 38329 12/17/2017 ([id number]) OFFICE/OUTPATIENT VISIT EST Diagnosis: Chronic obstructive pulmonary disease with (acute) exacerbation[ICD10: J44.1] Belia REID DO [facility] CPT- 4: 40520 10/30/2017 ([id number]) OFFICE/OUTPATIENT VISIT EST Diagnosis: Chronic obstructive pulmonary disease with acute lower respiratory infection[ICD10: J44.0] Diagnosis: Mild intermittent asthma with (acute) exacerbation[ICD10: J45.21] Belia REID Watsin [facility] CPT-4: 05749 10/23/2017 ([id number]) NURSE/OUTPATIENT VISIT EST Diagnosis: Migraine, unspecified, not intractable, without status migrainosus[ICD10: G43.909] Belia REID Watsin [facility] CPT - 4: 35070 08/26/2017 ([id number]) OFFICE/OUTPATIENT VISIT EST Diagnosis: Urinary tract infection, site not specified[ICD10: N39.0] Diagnosis: Encounter for screening for osteoporosis[ICD10: Z13.820] Diagnosis: Encounter for screening mammogram for malignant neoplasm of breast[ICD10: Z12.31] Diagnosis: Acute bronchitis, unspecified[ICD10: J20.9] Pattie REID DO [facility] CPT-4: 05925 07/19/2017 ([id number]) OFFICE/OUTPATIENT VISIT EST Diagnosis: Rash and other nonspecific skin eruption[ICD10: R21] Pattie REID DO [facility] CPT-4: 44342 05/29/2017 ([id number]) OFFICE/OUTPATIENT VISIT EST Diagnosis: Diarrhea, unspecified[ICD10: R19.7] Diagnosis: Tinea corporis[ICD10: B35.4] Diagnosis: Tinea cruris[ICD10: B35.6] Diagnosis: Migraine, unspecified, not intractable, without status migrainosus[ICD10: G43.909] Belia REID [facility] CPT - 4: 25454 05/07/2017 ([id number]) OFFICE/OUTPATIENT VISIT EST Diagnosis: Stridor[ICD10: R06.1] Diagnosis: Chronic obstructive pulmonary disease with (acute) exacerbation[ICD10: J44.1] Belia REID DO [facility] CPT- 4: 91866 03/18/2017 ([id number]) OFFICE/OUTPATIENT VISIT EST Diagnosis: Type 2 diabetes mellitus with hyperglycemia[ICD10: E11.65] Belia REID DO [facility] CPT-4: 47636 02/27/2017 OFFICE/OUTPATIENT VISIT EST Diagnosis: Type 2 diabetes mellitus with hyperglycemia[ICD10: E11.65] Pattie REID Watsin [facility] CPT-4: 14640 02/22/2017 ([id number]) OFFICE/OUTPATIENT VISIT EST Diagnosis: Urinary tract infection, site not specified[ICD10: N39.0] Diagnosis: Pneumonia, unspecified organism[ICD10: J18.9] Diagnosis: Type 2 diabetes mellitus with hyperglycemia[ICD10: E11.65] Belia REID [facility] CPT-4: 13798 01/23/2017 ([id number]) OFFICE/OUTPATIENT VISIT EST Diagnosis: Type 2 diabetes mellitus with hyperglycemia[ICD10: E11.65] Diagnosis: Localized edema[ICD10: R60.0] Diagnosis: PNEUMOCOCCAL VACCINE[ICD10: Z23] Diagnosis: FLU VACCINE[ICD10: Z23] Belia FREDERICK [facility] CPT-4: 62232 12/20/2016 OFFICE/OUTPATIENT VISIT EST Diagnosis: Pain in thoracic spine[ICD10: M54.6] Diagnosis: Low back pain[ICD10: M54.5] Diagnosis: Cervicalgia[ICD10: M54.2] Diagnosis: Cough[ICD10: R05] Celeste Ferreira BELIA REID Watsin [facility] CPT-4: 69956 10/08/2016 ([id number]) OFFICE/OUTPATIENT VISIT EST Diagnosis: Primary insomnia[ICD10: F51.01] Diagnosis: Migraine, unspecified, not intractable, without status migrainosus[ICD10: G43.909] Diagnosis: Type 2 diabetes mellitus with hyperglycemia[ICD10: E11.65] Belia REID DO [facility] CPT-4: 57141 09/19/2016 ([id number]) OFFICE/OUTPATIENT VISIT EST Diagnosis: Migraine, unspecified, not intractable, without status migrainosus[ICD10: G43.909] Diagnosis: Generalized abdominal pain[ICD10: R10.84] Diagnosis: Cough[ICD10: R05] Belia REID DO [facility] CPT-4: 87626 08/20/2016 ([id number]) OFFICE/OUTPATIENT VISIT EST Diagnosis: Chronic obstructive pulmonary disease, unspecified[ICD10: J44.9] Diagnosis: Stridor[ICD10: R06.1] Belia REID DO [facility] CPT-4: 31383 06/19/2016 ([id number]) OFFICE/OUTPATIENT VISIT EST Diagnosis: Chronic obstructive pulmonary disease, unspecified[ICD10: J44.9] Diagnosis: Personal history of urinary (tract) infections[ICD10: Z87.440] Belia REID DO [facility] CPT-4: 36177 06/04/2016 ([id number]) OFFICE/OUTPATIENT VISIT EST Diagnosis: Stridor[ICD10: R06.1] Diagnosis: Chronic obstructive pulmonary disease with acute lower respiratory infection[ICD10: J44.0] Diagnosis: Other specified diseases of intestine[ICD10: K63.89] Diagnosis: Cystitis, unspecified without hematuria[ICD10: N30.90] Belia REID DO [facility] CPT-4: 62939 05/02/2016 ([id number]) OFFICE/OUTPATIENT VISIT EST Diagnosis: Fibromyalgia[ICD10: M79.7] Diagnosis: Urinary tract infection, site not specified[ICD10: N39.0] Belia REID DO [facility] CPT-4: 57026 04/03/2016 ([id number]) OFFICE/OUTPATIENT VISIT EST Diagnosis: Unspecified asthma, uncomplicated[ICD10: J45.909] Diagnosis: Cough[ICD10: R05] Lidia HSUQUELINE BushraMayda ANUSHKA Watsin [facility] T-4: 79018 02/29/2016 ([id number]) OFFICE/OUTPATIENT VISIT EST Diagnosis: Migraine, unspecified, intractable, without status migrainosus[ICD10: G43.919] Diagnosis: Urinary tract infection, site not specified[ICD10: N39.0] Belia Anushka HSUQUELINE BushraMayda ANUSHKA Watsin [facility] CPT-4: 59641 02/02/2016 ([id number]) OFFICE/OUTPATIENT VISIT EST Diagnosis: Urinary tract infection, site not specified[ICD10: N39.0] Diagnosis: Unspecified abdominal pain[ICD10: R10.9] Diagnosis: Pain in thoracic spine[ICD10: M54.6] Diagnosis: Type 2 diabetes mellitus with diabetic neuropathic arthropathy[ICD10: E11.610] Belia Anushka HSUQUELINE BushraMayda ANUSHKA Watsin [facility] CPT-4: 53737 12/05/2015 ([id number]) OFFICE/OUTPATIENT VISIT EST Diagnosis: Chronic obstructive pulmonary disease with (acute) exacerbation[ICD10: J44.1] Diagnosis: Migraine, unspecified, not intractable, without status migrainosus[ICD10: G43.909] Lidia HSUQUELINE BushraMayda ANUSHKA Watsin [facility] CPT -4: 26311 10/26/2015 ([id number]) OFFICE/OUTPATIENT VISIT EST Diagnosis: Hematuria, unspecified[ICD10: R31.9] Diagnosis: Urinary tract infection, site not specified[ICD10: N39.0] Lidia HSUQUELINE BushraMayda ANUSHKA Watsin [facility] CPT-4: 49105 10/05/2015 OFFICE/OUTPATIENT VISIT EST Diagnosis: Chronic obstructive pulmonary disease, unspecified[ICD10: J44.9] Diagnosis: Muscle weakness (generalized)[ICD10: M62.81] Diagnosis: Polyneuropathy, unspecified[ICD10: G62.9] Diagnosis: Other intervertebral disc degeneration, 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] Diagnosis: Fibromyalgia[ICD10: M79.7] Belia Zacharyisabellaotonile BELIA Yuridia DAILEYER Watsin [facility] CPT-4: 64186 09/15/2015 ([id number]) OFFICE/OUTPATIENT VISIT EST Diagnosis: Disorientation, unspecified[ICD10: R41.0] Diagnosis: Headache[ICD10: R51] Diagnosis: Paresthesia of skin[ICD10: R20.2] Lidia REID DO [facility] CPT-4: 31377 08/24/2015 ([id number]) OFFICE/OUTPATIENT VISIT EST Diagnosis: Type 2 diabetes mellitus with hyperglycemia[ICD10: E11.65] Diagnosis: Chronic obstructive pulmonary disease with acute lower respiratory infection[ICD10: J44.0] Belia REID DO [facility] CPT-4: 49503 07/05/2015 ([id number]) OFFICE/OUTPATIENT VISIT EST Diagnosis: Mild intermittent asthma with (acute) exacerbation[ICD10: J45.21] Diagnosis: Chronic obstructive pulmonary disease, unspecified[ICD10: J44.9] Belia REID [facility] CPT-4: 66455 06/06/2015 ([id number]) OFFICE/OUTPATIENT VISIT EST Diagnosis: Chronic obstructive pulmonary disease with (acute) exacerbation[ICD10: J44.1] Lidia REID [facility] CPT- 4: 62199 05/23/2015 ([id number]) OFFICE/OUTPATIENT VISIT EST Diagnosis: Type 2 diabetes mellitus with hyperglycemia[ICD10: E11.65] Diagnosis: Functional dyspepsia[ICD10: K30] Belia REID DO [facility] CPT-4: 38482 05/05/2015 ([id number]) OFFICE/OUTPATIENT VISIT EST Diagnosis: Type 2 diabetes mellitus with hyperglycemia[ICD10: E11.65] Diagnosis: Glycosuria[ICD10: R81] Diagnosis: Urinary tract infection, site not specified[ICD10: N39.0] Belia REID DO [facility] CPT-4: 72482 03/30/2015 ([id number]) OFFICE/OUTPATIENT VISIT EST Diagnosis: Generalized abdominal pain[ICD10: R10.84] Diagnosis: Diarrhea, unspecified[ICD10: R19.7] Diagnosis: Urinary tract infection, site not specified[ICD10: N39.0] Diagnosis: Gastro-esophageal reflux disease without esophagitis[ICD10: K21.9] Belia REID [facility] CPT-4: 50403 02/03/2015 ([id number]) OFFICE/OUTPATIENT VISIT EST Diagnosis: Other specified noninflammatory disorders of vagina[ICD10: N89.8] Diagnosis: Follicular disorder, unspecified[ICD10: L73.9] Diagnosis: Functional dyspepsia[ICD10: K30] Diagnosis: FLU VACCINE[ICD10: Z23] Belia SMITH [facility] CPT-4: 68060 12/29/2014 ([id number]) OFFICE/OUTPATIENT VISIT EST 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] Diagnosis: RESTLESS LEGS SYNDROME[ICD9: 333.94] Diagnosis: MIGRAINE NOS/NOT INTRCBL[ICD9: 346.90] [facility] CPT-[facility]: 89119 09/02/2014 ([id number]) OFFICE/OUTPATIENT VISIT EST Diagnosis: Cervical radiculopathy[ICD9: 723.4] Diagnosis: Cervicalgia[ICD9: 723.1] Diagnosis: Degenerative disc disease, cervical[ICD9: 722.4] 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I[ICD9: 250.00] [facility] CPT-[facility]: 26686 04/01/2014 OFFICE/OUTPATIENT VISIT EST Diagnosis: Reactive airway disease[ICD9: 493.90] Belia HSUPAUL LUBNA BushraMayda [facility] C[facility]: 92712 03/16/2014 ([id number]) OFFICE/OUTPATIENT VISIT EST Diagnosis: BRONCHITIS, ACUTE[ICD9: 466.0] Diagnosis: Reactive airway disease[ICD9: 493.90] Beliahanna Reid MINAL LUBNA BushraMayda [facility] CPT-[facility]: 35774 03/09/2014 OFFICE/OUTPATIENT VISIT EST Diagnosis: BRONCHITIS, ACUTE[ICD9: 466.0] Diagnosis: WHEEZING[ICD9: 786.07] Huong Osborne BELIA BushraMayda RALF [facility] CPT-4: 66799 03/03/2014 OFFICE/OUTPATIENT VISIT EST Diagnosis: BRONCHITIS, ACUTE[ICD9: 466.0] Diagnosis: WHEEZING[ICD9: 786.07] Huong Peguero [facility] CPT-4: 30627 03/01/2014 ([id number]) OFFICE/OUTPATIENT VISIT EST Diagnosis: GERD[ICD9: 530.81] Diagnosis: ARTHRALGIA-MULTIPLE SITES[ICD9: 719.49] Diagnosis: LUMB/LUMBOSAC DISC DEGEN[ICD9: 722.52] Diagnosis: - I - FIBROMYALGIA[ICD9: 729.1] Belia Humphriseisabellaotoniel TomlinsonMayda ANUSHKA [facility] CPT-4: 08785 02/09/2014 ([id number]) OFFICE/OUTPATIENT VISIT EST Diagnosis: Peptic ulcer disease[ICD9: 533.90] Diagnosis: RESTLESS LEGS SYNDROME[ICD9: 333.94] Diagnosis: Neuropathy[ICD9: 355.9] Belia Humphriesisabellaotoniel CORNELLBELIA Yuridia FREDERICK [facility] CPT-4: 17789 12/23/2013 ([id number]) OFFICE/OUTPATIENT VISIT EST Diagnosis: URINARY TRACT INFECTION[ICD9: 599.0] Belia Humphriesisabellaotoniel CORNELL CLAYTON BushraMayda ANUSHKA [facility] CPT-4: 98819 10/30/2013 ([id number]) OFFICE/OUTPATIENT VISIT EST Diagnosis: Flank pain[ICD9: 789.00] Belia Humphriesisabellaotoniel CORNELLBELIA BushraMayda KIESHA POOLE [facility] CPT-4: 54772 10/21/2013 ([id number]) OFFICE/OUTPATIENT VISIT EST Diagnosis: INFLAMED SEBORR KERATOS[ICD9: 702.11] Diagnosis: Brachioradial pruritus[ICD9: 698.9] Diagnosis: ASTHMA NOS[ICD9: 493.90] Belia Humphriesisabellaotoniel CORNELLBELIA BusharMayda KIESHA POOLE [facility] CPT-4: 39332 10/05/2013 ([id number]) OFFICE/OUTPATIENT VISIT EST Diagnosis: HYPERTENSION[ICD9: 401.9] Diagnosis: - I - FIBROMYALGIA[ICD9: 729.1] Diagnosis: DIZZINESS/VERTIGO[ICD9: 780.4] Diagnosis: MIGRAINE NOS/NOT INTRCBL[ICD9: 346.90] Diagnosis: Diabetic peripheral neuropathy[ICD9: 250.60] Diagnosis: Flank pain[ICD9: 789.00] Belia CORNELLLINE Yuridia POOLE [facility] CPT-4: 68705 08/04/2013 ([id number]) OFFICE/OUTPATIENT VISIT EST Diagnosis: ALLERGIC RHINITIS[ICD9: 477.9] Belia CORNELLLINE Bushra REID [facility] CPT-4: 11465 07/13/2013 OFFICE/OUTPATIENT VISIT EST Diagnosis: URINARY TRACT INFECTION[ICD9: 599.0] Huong De LunaFidepool REID [facility] CPT-4: 27084 07/03/2013 OFFICE/OUTPATIENT VISIT EST Diagnosis: HYPERTENSION[ICD9: 401.9] Diagnosis: URINARY TRACT INFECTION[ICD9: 599.0] Diagnosis: BACKACHE[ICD9: 724.5] Diagnosis: URINARY INCONTINENCE[ICD9: 788.30] Huong De LunaFidepool BASS MARIE Yuridia [facility] CPT-[facility]: 71320 05/27/2013 ([id number]) OFFICE/OUTPATIENT VISIT EST Diagnosis: Flank pain[ICD9: 789.00] Belia Humphriesisabellaotoniel CORNELLBELIA BushraMayda KIESHA [facility] CPT-4: 20957 05/25/2013 ([id number]) OFFICE/OUTPATIENT VISIT EST Diagnosis: B-COMPLEX DEFIC NEC[ICD9: 266.2] Belia Ansuhka CORNELLLINE Yuridia [facility] CPT-4: 46543 05/04/2013 ([id number]) OFFICE/OUTPATIENT VISIT EST Diagnosis: ALLERGIC RHINITIS[ICD9: 477.9] Diagnosis: Vitamin B12 deficiency[ICD9: 266.2] Belia THOMPSON Yuridia REID [facility] CPT-4: 54342 04/17/2013 ([id number]) OFFICE/OUTPATIENT VISIT EST 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I[ICD9: 250.00] Diagnosis: URINARY TRACT INFECTION[ICD9: 599.0] Diagnosis: DIZZINESS/VERTIGO[ICD9: 780.4] Diagnosis: DIARRHEA[ICD9: 787.91] Belia Zacharynilson BRUNSON BushraMayda ZACHARYISABELLAReggie [facility] CPT-4: 14874 04/06/2013 ([id number]) OFFICE/OUTPATIENT VISIT EST Diagnosis: URINARY TRACT INFECTION[ICD9: 599.0] Diagnosis: URINARY RETENTION[ICD9: 788.20] Belia REID [facility] CPT-4: 10597 11/10/2012 ([id number]) OFFICE/OUTPATIENT VISIT EST Diagnosis: TACHYCARDIA[ICD9: 785.0] Diagnosis: SYNCOPE AND COLLAPSE[ICD9: 780.2] Diagnosis: CONSCIOUSNS ALTERAT NEC[ICD9: 780.09] Belia REID [facility] CPT-4: 59343 09/02/2012 OFFICE/OUTPATIENT VISIT EST Diagnosis: TACHYCARDIA[ICD9: 785.0] Diagnosis: SYNCOPE AND COLLAPSE[ICD9: 780.2] Belia REID [facility] CPT-4: 84865 08/04/2012 ([id number]) OFFICE/OUTPATIENT VISIT EST Diagnosis: Loss of consciousness[ICD9: 780.09] Diagnosis: Tachycardia[ICD9: 785.0] Diagnosis: MALAISE AND FATIGUE[ICD9: 780.79] [facility] CPT-[facility]: 39534 07/21/2012 ([id number]) OFFICE/OUTPATIENT VISIT EST Diagnosis: BRONCHITIS, ACUTE[ICD9: 466.0] Diagnosis: ASTHMA NOS[ICD9: 493.90] Belia POOLE [facility] CPT-4: 97916 07/02/2012 ([id number]) OFFICE/OUTPATIENT VISIT EST Diagnosis: CEPHALGIA[ICD9: 784.0] Belia Peguero [facility] CPT-4: 27317 06/25/2012 ([id number]) OFFICE/OUTPATIENT VISIT EST Diagnosis: GERD[ICD9: 530.81] Diagnosis: DIARRHEA[ICD9: 787.91] Diagnosis: URINARY TRACT INFECTION[ICD9: 599.0] Diagnosis: ASTHMA NOS[ICD9: 493.90] Diagnosis: ALLERGIC RHINITIS[ICD9: 477.9] Belia REID [facility] CPT-4: 03886 06/24/2012 ([id number]) OFFICE/OUTPATIENT VISIT EST Diagnosis: MIGRAINE NOS/NOT INTRCBL[ICD9: 346.90] Diagnosis: TREMOR NEC[ICD9: 333.1] Diagnosis: CHRONIC PAIN SYNDROME[ICD9: 338.4] Belia Zacharynilson SALAZAR BushraMayda ANUSHKA Watsin [facility] CPT-4: 52602 05/20/2012 ([id number]) OFFICE/OUTPATIENT VISIT EST Diagnosis: DIZZINESS/VERTIGO[ICD9: 780.4] Diagnosis: PALPITATIONS[ICD9: 785.1] Diagnosis: TREMOR NEC[ICD9: 333.1] Diagnosis: ANXIETY STATE NOS[ICD9: 300.00] Diagnosis: POSTTRAUMATIC STRESS DISORDER[ICD9: 309.81] Belia Zacharynilson BRUNSON BushraMayda ANUSHKA Watsin [facility] CPT-4: 45030 05/08/2012 ([id number]) OFFICE/OUTPATIENT VISIT EST Diagnosis: MIGRAINE NOS/NOT INTRCBL[ICD9: 346.90] Diagnosis: FIBROMYALGIA[ICD9: 729.1] Diagnosis: SYNCOPE AND COLLAPSE[ICD9: 780.2] Diagnosis: Diabetic peripheral neuropathy[ICD9: 250.60] Belia Zacharynilson BELIA BushraMayda LUIS Watsin [facility] CPT-4: 10350 04/22/2012 OFFICE/OUTPATIENT VISIT EST Diagnosis: ROTATOR CUFF DIS NEC[ICD9: 726.19] Diagnosis: JOINT PAIN-SHLDER[ICD9: 719.41] Diagnosis: DYSPEPSIA[ICD9: 536.8] Belia Zacharynilson BELIA BushraMayda RALF [facility] CPT-4: 89566 02/13/2012 ([id number]) OFFICE/OUTPATIENT VISIT EST Diagnosis: MIGRAINE NOS/NOT INTRCBL[ICD9: 346.90] Diagnosis: GERD[ICD9: 530.81] Diagnosis: DYSPEPSIA[ICD9: 536.8] Belia BRUNSON BushraMayda RALF Peg[facility]ero Watsin [facility] CPT-4: 42118 01/28/2012 OFFICE/OUTPATIENT VISIT EST Diagnosis: CEPHALGIA[ICD9: 784.0] Diagnosis: MIGRAINE NOS/NOT INTRCBL[ICD9: 346.90] Diagnosis: GERD[ICD9: 530.81] Diagnosis: INSOMNIA NOS[ICD9: 780.52] Belia Shi RAND DAILEYER Watsin [facility] CPT-4: 84826 12/26/2011 ([id number]) OFFICE/OUTPATIENT VISIT EST Diagnosis: CEPHALGIA[ICD9: 784.0] Diagnosis: MIGRAINE NOS/NOT INTRCBL[ICD9: 346.90] Diagnosis: MALAISE AND FATIGUE[ICD9: 780.79] Diagnosis: FIBROMYALGIA[ICD9: 729.1] Diagnosis: ALLERGIC RHINITIS[ICD9: 477.9] Belia REID Watsin [facility] CPT-4: 22778 11/14/2011 ([id number]) OFFICE/OUTPATIENT VISIT EST Diagnosis: MALAISE AND FATIGUE[ICD9: 780.79] Diagnosis: MUSCLE WEAKNESS-GENERAL[ICD9: 728.87] Diagnosis: MIGRAINE NOS/NOT INTRCBL[ICD9: 346.90] Diagnosis: JOINT PAIN-SHLDER[ICD9: 719.41] Belia REID Watsin [facility] CPT-4: 31943 09/12/2011 ([id number]) OFFICE/OUTPATIENT VISIT EST Diagnosis: CONCUSSION[ICD9: 850.9] Diagnosis: Ataxia[ICD9: 781.3] Diagnosis: DIZZINESS/VERTIGO[ICD9: 780.4] Belia REID Watsin [facility] CPT-4: 37724 08/15/2011 ([id number]) OFFICE/OUTPATIENT VISIT EST Diagnosis: THROMBOPHLEBITIS[ICD9: 451.9] Diagnosis: Subacromial bursitis[ICD9: 726.19] Diagnosis: ALLERGIC RHINITIS[ICD9: 477.9] Diagnosis: Lipoma[ICD9: 214.9] Belia REID [facility] CPT-4: 64970 08/09/2011 ([id number]) OFFICE/OUTPATIENT VISIT EST Diagnosis: THROMBOPHLEBITIS[ICD9: 451.9] Diagnosis: Arm pain[ICD9: 729.5] Diagnosis: Clostridium difficile colitis[ICD9: 008.45] Diagnosis: URINARY TRACT INFECTION[ICD9: 599.0] Belia REID Watsin [facility] CPT-4: 49855 07/03/2011 ([id number]) OFFICE/OUTPATIENT VISIT EST Diagnosis: ARTHRALGIA-MULTIPLE SITES[ICD9: 719.49] Diagnosis: Muscle cramp[ICD9: 729.82] Diagnosis: INSOMNIA NOS[ICD9: 780.52] Belia DOMINGUEZ [facility] CPT-4: 98501 06/04/2011 OFFICE/OUTPATIENT VISIT EST Diagnosis: Headache[ICD9: 784.0] Diagnosis: Allergic rhinitis[ICD9: 477.9] [facility] C[facility]: 90611 05/03/2011 OFFICE/OUTPATIENT VISIT EST Diagnosis: LUMB/LUMBOSAC DISC DEGEN[ICD9: 722.52] Diagnosis: MIGRAINE NOS/NOT INTRCBL[ICD9: 346.90] Diagnosis: CHRONIC PAIN SYNDROME[ICD9: 338.4] Diagnosis: RESTLESS LEGS SYNDROME[ICD9: 333.94] Belia CORNELL CLAYTON Yuridia [facility] CPT-4: 24344 04/05/2011 OFFICE/OUTPATIENT VISIT EST Diagnosis: MIGRAINE NOS/NOT INTRCBL[ICD9: 346.90] Diagnosis: GERD[ICD9: 530.81] [facility] CPT-4: 14531 03/08/2011 OFFICE/OUTPATIENT VISIT EST Diagnosis: URINARY TRACT INFECTION[ICD9: 599.0] Diagnosis: Vertigo[ICD9: 780.4] Diagnosis: GERD[ICD9: 530.81] [facility] CPT-4: 18556 01/24/2011 OFFICE/OUTPATIENT VISIT EST Diagnosis: Hypotension[ICD9: 458.9] Diagnosis: Syncopal episodes[ICD9: 780.2] Diagnosis: MIGRAINE NOS/NOT INTRCBL[ICD9: 346.90] Diagnosis: MALAISE AND FATIGUE[ICD9: 780.79] Belia Zacharynilson Paredes Yuridia [facility] CPT-4: 37025 01/02/2011 OFFICE/OUTPATIENT VISIT EST Diagnosis: Tinea cruris[ICD9: 110.3] Diagnosis: Intertrigo[ICD9: 695.89] Diagnosis: MIGRAINE NOS/NOT INTRCBL[ICD9: 346.90] Belia COKER Yuridia [facility] CPT-4: 48943 12/07/2010 OFFICE/OUTPATIENT VISIT EST Diagnosis: PALPITATIONS[ICD9: 785.1] Diagnosis: ANXIETY STATE NOS[ICD9: 300.00] Belia Zacharyisabellaotoniel CORNELLBELIA [facility] CPT-4: 52747 11/16/2010 OFFICE/OUTPATIENT VISIT EST Diagnosis: URINARY TRACT INFECTION[ICD9: 599.0] Diagnosis: MIGRAINE NOS/NOT INTRCBL[ICD9: 346.90] Iraida Robert SONJA UELINE [facility] CPT-4: 44247 11/02/2010 OFFICE/OUTPATIENT VISIT EST Diagnosis: ALLERGIC RHINITIS[ICD9: 477.9] Diagnosis: ANXIETY STATE NOS[ICD9: 300.00] Beliahanna HSUQUELINE [facility] CPT-4: 23751 10/18/2010 OFFICE/OUTPATIENT VISIT EST Belia Zacharyisabellaotoniel CORNELLBELIA [facility] CPT- 4: 85760 09/19/2010 OFFICE/OUTPATIENT VISIT EST Belia Zacharyisabellaotoniel CORNELLBELIA [facility] CPT- 4: 01535 09/06/2010 ([id number]) OFFICE/OUTPATIENT VISIT EST Belia Zacharyisabellaotoniel ACSILLAS UELINE [facility] CPT-4: 35903 08/10/2010 ([id number]) OFFICE/OUTPATIENT VISIT EST Belia Zacharyisabellaotoniel HSUQ UELINE [facility] CPT-4: 01843 05/11/2010 ([id number]) OFFICE/OUTPATIENT VISIT, EST Belia HSU ROBERTOCLAYTON [facility] CPT-4: 54706 04/06/2010 ([id number]) OFFICE/OUTPATIENT VISIT, EST Belia HSU QUELINE [facility] CPT-4: 14394 02/09/2010 ([id number]) OFFICE/OUTPATIENT VISIT, EST Belia DELGADO [facility] CPT-4: 27694 01/05/2010 ([id number]) OFFICE/OUTPATIENT VISIT, EST Belia HSU ROBERTOCLAYTON [facility] CPT-4: 56724 12/07/2009 ([id number]) OFFICE/OUTPATIENT VISIT, EST [facility] CPT-4: 31168 11/08/2009 ([id number]) OFFICE/[facility]PAT[facility] VISIT, [facility] CPT-[facility]: 37680 10/24/2009 ([id number]) OFFICE/OUTPATIENT VISIT, [facility] CPT-4: 95134 07/25/2009 ([id number]) OFFICE/OUTPATIENT VISIT, [facility] CPT-4: 25619 05/26/2009 Plan of Care Planned Activity Notes Codes Status Date Visit Diagnosis Plan: Left leg swelling Discussion: Ne eds LLE venous doppler--patient states is scheduled for that tomorrow because they were unable to do that in the ER last night due to US leaving at 4:30pm--told her that exam needs to be done today so if they cannot do that today she should go back to the ER--she had just talked to scheduling so said she would call them back She was given a lovenox injection in the ER last night ICD-9 : 729.81 ICD-10 : M79.89 06/24/2019 Visit Diagnosis Plan: Dyspnea Discussion: Patient inst ructed to put her oxygen on and told she may need a CT angiogram of the chest pending the LLE venous doppler results--she will report to the ER if the dyspnea is worsening ICD-9 : 786.09 ICD-10 : R06.00 06/24/2019 Visit Diagnosis Plan: Acute bronchitis Discussion: Cov er with levaquin Increase SVNs with albuterol to QID Has oxygen using q HS routinely and prn To ER if oxygen levels drop or worsening respiratory symptoms ICD-9 : 466.0 ICD-10 : J20.9 06/16/2019 Visit Diagnosis Plan: Colitis Discussion: Levaquin/[place] keaganl [place] Diet ICD-9 : 558.9 ICD-10 : K52.9 06/16/2019 Appointment: [facility] [phone] [id number] [facility] 06/16/2019 Patient Education: Mariah- [employer] Coupon [phone] [email or web address] Completed 06/16/2019 Visit Diagnosis Plan: Diarrhea Discussion: Vancomycin for 10 days and notify if not improving or worsening BLAND diet Hydrate ICD-9 : 787.91 ICD-10 : R19.7 06/08/2019 Appointment: Belia Reidtel: [address] [place] [address] TELEMEDICINE 06/08/2019 Visit Diagnosis Plan: Acute febrile illness Discussion : Notify if worsens ICD-9 : 780.60 ICD-10 : R50.9 05/26/2019 Visit Diagnosis Plan: Colitis Discussion: Flagyl plus cipro to cover for both colitis and UTI Notify or to ER if worsening ICD-9 : 558.9 ICD-10 : K52.9 05/26/2019 Appointment: Belia Reidtel: [address] [place] [address] TELEMEDICINE 05/26/2019 Appointment: Pattie Sotomayor [address] RESCHEDULED 05/18/2019 Visit Diagnosis Plan: Chronic obstructive pulmonary di sease, unspecified Discussion: Recommend pulmonary rehab Patient states she never went to pulmonary rehab due to cost as well as transportation issues Finish trelagy Stop singulair Decrease hydroxyzine to 25mg po q HS Fwup [address] scan of Chest results discussed ICD-9 : 496 ICD-10 : J44.9 05/13/2019 Appointment: Belia Reid WPtel: [address] [place] [address] Hospital Follow Up 05/13/2019 Visit Diagnosis Plan: COUGH Discussion: Check CT scan of chest ICD-9 : 786.2 ICD-10 : R05 05/06/2019 Visit Diagnosis Plan: Stridor Discussion: Add Trelagy 1 p daily Add Singulair May need to see new self sealing fuel tank repairer ICD-9 : 786.1 ICD-10 : R06.1 05/06/2019 Appointment: Belia Reid: [address] [place] [address] FOLLOW UP 05/06/2019 Patient Education: Singulair- OptimizeRX Coupon [phone] https://www.Flickme/samplemd/resources/getResource/61/4247450x-r70k-91x1-hq Completed 05/06/2019 Appointment: Belia Reid WPtel: [address] [place] [address] US RESCHEDULED 04/30/2019 Visit Diagnosis Plan: Muscle, [...] : R06.1 04/29/2019 Appointment: Belia Reid WPtel: [address] [place] [address] Hospital Follow Up 04/29/2019 Patient Education: Valium- OptimizeRX Coupon [id number] https://www.Flickme/samplemd/resources/getResource/61/n97380xr-006x-1y40-2m Completed 04/29/2019 Visit Diagnosis Plan: Weight gain [...] ICD-10 : R10.9 04/16/2019 Appointment: Pattie Sotomayor [address] [place] [address] ACUTE ILLNESS 04/16/2019 Patient Education: cyclobenzaprine- OptimizeRX Coupon [id number] https://www.[employer].com/samplemd/resources/getResource/61/qp01h0v9-0147-4844-a5 Completed 04/16/2019 Visit Diagnosis Plan: Generalized pruritus Discussion: Hydroxyzine 25mg po TID for itching and anxiety ICD-9 : 698.9 ICD-10 : L29.9 04/08/2019 Visit Diagnosis Plan: Migraine, unspecif ied, not intractable, without status migrainosus Discussion: Increase gabapentin to 600mg po BID ICD-9 : 346.90 ICD-10 : G43.909 04/08/2019 Appointment: Belia Reid WPtel: [address] [place] [address] ACUTE ILLNESS 04/08/2019 Visit Diagnosis Plan: Cervicalgia [...] : M75.52 01/22/2019 Appointment: Belia Reid WPtel: [address] [place] [address] Hospital Follow Up 01/22/2019 Visit Diagnosis Plan: Abdominal pain Discussion: urine culture sent to assess for any infection. rocephin given in office to cover for pyelonephritis. instructed to push fluids. call office with any new or worsening symptoms. ICD-9 : 789.00 ICD-10 : R10.9 01/07/2019 Appointment: Pattie Sotomayor [address] [place] [address] ACUTE ILLNESS 01/07/2019 Visit Diagnosis Plan: Low back pain Discussion: Stat C T of abdomen/pelvis now ICD-9 : 724.2 ICD-10 : M54.5 12/24/2018 Appointment: Belia Reid WPtel: [address] [place] [address] FOLLOW UP 12/24/2018 Visit Diagnosis Plan: Fibromyalgia [...] : G43.909 11/20/2018 Appointment: Belia Reid WPtel: [facility] [address] ACUTE ILLNESS 11/20/2018 Patient Education: baclofen- OptimizeRX Coupon [id number] https://www.Flickme/sampleTapioca Mobile/resources/getResource/61/9s3420z5-lk9j-47wb-49 Completed 11/20/2018 Visit Diagnosis Plan: Migraine, unspecif ied, intractable, without status migrainosus Discussion: toradol/phenergan given in o ffice (60 mg toradol, 12.5 mg phenergan). instructed to call if no improvement or worsening. instructed to follow up with animal husbandry teacher since headaches are occurring more frequently to make sure vision is not the cause. ICD-9 : 346.91 ICD-10 : G43.919 11/04/2018 Visit Diagnosis Plan: Acute sinusitis, unspecified Dis cussion: zithromax prescribed to cover for sinus infection due to length of symptoms and clinincal s/s. ICD-9 : 461.9 ICD-10 : J01.90 11/04/2018 Appointment: Pattie Sotomayor [address] [place] [address] ACUTE ILLNESS 11/04/2018 Appointment: eBlia Reid WPtel: [address] [facility] US CANCELED 09/24/2018 Visit Diagnosis Plan: Type 2 diabetes me llitus with diabetic neuropathy, unspecified Discussion: Retry gabapentin 300mg po q HS ICD-9 : 250.60 ICD-10 : E11.40 09/18/2018 Visit Diagnosis Plan: Vitamin D deficiency, unspecifie d Discussion: Increase Vitamin D3 to 10,000 u daily ICD-9 : 268.9 ICD-10 : E55.9 09/18/2018 Visit Diagnosis Plan: Encounter for gene [facility] adult medical examination without abnormal findings [...] : I10 09/18/2018 Appointment: Belia Reid WPtel: [facility] Annual Well Visit 09/18/2018 Patient Education: gabapentin- OptimizeRX Coupon [phone] https://www.[employer].TextCorner/samplemd/resources/getResource/61/0e77ks67-8be7-9cef-c3 Completed 09/18/2018 Visit Diagnosis Plan: Pain in [...] ICD-10 : M54.89 09/08/2018 Appointment: Pattie Sotomayor [address] [place], [place] [address] ACUTE ILLNESS 09/08/2018 Patient Education: prednisone- OptimizeRX Coupon [phone] https://www.[employer].com/samplemd/resources/getResource/61/1j0xm20d-6716-35j4-ch Completed 09/08/2018 Visit Diagnosis Plan: Acute stress [...] L29.9 08/20/2018 Appointment: Bel[facility] Reid [facility]Ptel[facility] [facility] [facility] 08/20/2018 Patient Education: Lexapro- OptimizeRX Coupon [id number] Completed 08/20/2018 Patient Education: hydroxyzine HCl- OptimizeRX Coupon [id number] Completed 08/20/2018 Care Plan: MAMMOGRAM SCREENING LOINC : 2 6347-5 Pending 08/20/2018 Visit Diagnosis Plan: Paroxysmal atrial fibrillation D iscussion: Discuss eliquis need with cardiology at [facility] due to cost ICD-9 : 427.31 ICD-10 : I48.0 06/19/2018 Visit Diagnosis Plan: Hypotension due to drugs Discuss ion: Discussed decreasing cardizem dose due to low BP and edema but sees cardiology next week Follow Up: 1 months ICD-9 : 458.8 ICD-10 : I95.2 06/19/2018 Appointment: Belia Reid WPtel: [address] [facility] [facility] FOLLOW UP 06/19/2018 Visit Diagnosis Plan: [...] 780.8 ICD-10 : R61 06/09/2018 Appointment: Belia Reidtel: [address] [place] [address] FOLLOW UP 06/09/2018 Care Plan: CHEST X-RAY 2VW FRONTAL&LATL LOINC : 78667-3 Pending 05/26/2018 Visit Diagnosis Plan: Stridor Discussion: [...] : I47.1 05/21/2018 Appointment: Belia Reid WPtel: [address] [place] [address] Follow Up 05/21/2018 Visit Diagnosis Plan: Cervical disc diso rder with radiculopathy, unspecified cervical region Discussion: Scheduled for surgery on 06/02 10/[address] Faulkner ICD-9 : 722.0 ICD-10 : M50.10 04/16/2018 Appointment: Belia Reid WPtel: [address] [place] [address] Hospital Follow Up 04/16/2018 Visit Diagnosis Plan: [...] ICD-10 : M79.7 04/01/2018 Appointment: Pattie Sotomayor [address] [place] [address] ACUTE ILLNESS 04/01/2018 Appointment: Belia Reid WPtel: [address] [place] [address] 03/17/2018 Visit Diagnosis Plan: Erythema intertrigo Discussio: [...] : J44.1 03/06/2018 Appointment: Belia Reid WPtel: [address] [place] [address] Hospital Follow Up 03/06/2018 Visit Diagnosis Plan: Cervicalgia Discussion: spoke wi th dr. reid about patient. increased gabapentin to bid and started on celebrex bid. tramadrol rx written out to take prn. keep scheduled appt next week for myelogram. ICD-9 : 723.1 ICD-10 : M54.2 02/05/2018 Appointment: Pattie Sotomayor [address] [place], [place] [phone] ACUTE ILLNESS 02/05/2018 Care Plan: X-RAY EXAM NECK SPINE 4/5VWS cervical LOINC : 85190-5 Pending 01/21/2018 Visit Diagnosis Plan: Candidiasis of [...] ICD-10 : M54.2 01/20/2018 Appointment: Pattie Sotomayor [address] [place] [address] ACUTE ILLNESS 01/20/2018 Visit Diagnosis Plan: Pain in thoracic spine Discussio n: Proceed with CT scan of thoracic spine Will likely need PT ICD-9 : 724.1 ICD-10 : M54.6 12/25/2017 Appointment: Belia Reid WPtel: [address] [place] [address] FOLLOW UP 12/25/2017 Care Plan: CT THORAX W/O DYE LOINC : 473 66-0 Pending 12/25/2017 Visit Diagnosis Plan: Pain in thoracic spine Discussio n: Stretches Alternated heat/ice Topical aspercreme with lidocaine Flexeril Recheck 1 week Flu and Pneumovax given ICD-9 : 724.1 ICD-10 : M54.6 12/17/2017 Appointment: Belia Reid WPtel: [address] [place] [address] ACUTE ILLNESS 12/17/2017 Patient Education: Patient Medication [...] : J44.1 10/30/2017 Appointment: Belia Reid WPtel: [address] [place] [address] FOLLOW UP 10/30/2017 Patient Education: Patient Medication Summary Completed 10/30/2017 Visit Diagnosis Plan: Chronic obstructiv e pulmonary disease with acute lower respiratory infection Discussion: Continue SVNs with albuterol q4hrs Add Trelagy 1 inhalation daily Finish steroids Increase water intake Follow Up: 1 weeks ICD-9 : 496 ICD-10 : J44.0 10/23/2017 Appointment: Belia Reidtel: [address] [place], [place] [phone] [place] WORK IN 10/23/2017 Patient Education: Patient Medication Summary Completed 10/23/2017 Appointment: Belia Reid WPtel: [address] [place], [place] [phone] NO SHOW 10/16/2017 Visit Diagnosis [...] : E11.65 09/17/2017 Appointment: Belia Reid WPtel: [address] [place] [address] Annual Well Visit 09/17/2017 Patient Education: Patient Medication Summary Completed 09/17/2017 Appointment: Belia Reid WPtel: [address] [place], [place] [phone] US INJECTION 08/26/2017 Patient Education: Patient Medication Summary Completed 08/26/2017 Appointment: Belia Reid WPtel: [address] [place], [place] [phone] US CANCELED 07/31/2017 Visit Diagnosis Plan: Encounter [...] : J20.9 07/19/2017 Appointment: Pattie Sotomayor [address] ACUTE ILLNESS 07/19/2017 Patient Education: Patient Medication Summary Completed 07/19/2017 Care Plan: MAMMOGRAM SCREENING LOINC : 2 6347-5 Pending 07/19/2017 Patient Education: Patient Medication Summary Completed 06/05/2017 Care Plan: LIPID PANEL LOINC : 60758-1 Pending 06/05/2017 Care Plan: A1C HPLC LOINC : 70573-6 Pending 06/05/2017 Visit Diagnosis Plan: Rash and [...] : R21 05/29/2017 Appointment: Pattie Sotomayor [address] [phone] FOLLOW UP 05/29/2017 Patient Education: Patient Medication Summary Completed 05/29/2017 Visit Diagnosis Plan: Tinea corporis Discussion: Diflu can and topical nystatin Follow Up: 2 weeks ICD-9 : 110.5 ICD-10 : B35.4 05/07/2017 Visit Diagnosis Plan: Diarrhea, unspecified Discussion : Diflucan Cholestyramine Recheck 2weeks ICD-9 : 787.91 ICD-10 : R19.7 05/07/2017 Appointment: Belia Reid WPtel: [address] [place], [place] [address] [place] FOLLOW UP 05/07/2017 Patient Education: Patient Medication Summary Completed 05/07/2017 Appointment: Belia Reid WPtel: [address] [place] [address] [place] RESCHEDULED 04/30/2017 Visit Diagnosis Plan: Chronic obstructiv e pulmonary disease with (acute) exacerbation Discussion: Finish prednisone Continue S VNS with albuterol ICD-9 : 491.21 ICD-10 : J44.1 03/18/2017 Visit Diagnosis Plan: Stridor Discussion: Increase Ati van 0.5mg po to TID routinely for next week then can go back to prn ICD-9 : 786.1 ICD-10 : R06.1 03/18/2017 Appointment: Belia Reid WPtel: [address] [place], [place] [phone] ER Follow UP 03/18/2017 Patient Education: Patient [...] E11.65 02/27/2017 Appointment: Belia Reid WPtel: [address] [place] [address] [place] FOLLOW UP 02/27/2017 Patient Education: Patient [...] ICD-10 : E11.65 02/22/2017 Appointment: Pattie Sotomayor [address] [place] [address] ACUTE ILLNESS 02/22/2017 Patient Education: Patient Medication Summary Completed 02/22/2017 Patient Education: Maddy - 18+ Comple mague 02/22/2017 Visit Diagnosis Plan: Urinary tract infection, site no t specified Discussion: Sejal mariah ICD-9 : 599.0 ICD-10 : N39.0 01/23/2017 [...] : J18.9 01/23/2017 Appointment: Belia Reid WPtel: [facility] ER Follow UP 01/23/2017 Patient Education: Patient Medication Summary Completed 01/23/2017 Appointment: Pattie Sotomayor [address] [place] [address] CANCELED 01/17/2017 Appointment: Pattie Sotomayor [address] [place] [address] Annual Well Visit 01/14/2017 Visit Diagnosis Plan: Type 2 diabetes mellitus with hy perglycemia Discussion: Check CMP, HbA1C Flu shot and Prevnar 13 given Follow Up: 3 months ICD-9 : 250.02 ICD-10 : E11.65 12/20/2016 Visit Diagnosis Plan: Localized edema Discussion: Low Na diet Compression socks/Elevate feet ICD-9 : 782.3 ICD-10 : R60.0 12/20/2016 Appointment: Belia Reid WPtel: [address] [phone] [place] FOLLOW UP 12/20/2016 Patient Education: Patient Medication Summary Completed 12/20/2016 Patient Education: Patient Medication Summary Completed 10/10/2016 Visit Plan: Xrays of cervical, thoracic and lumbar spine at [facility] for Mobic (stop NSAIDS except Tylenol) and Flexeril UA sent for C&S Using SVN Call in 2-3 days if pain not improved or any worsening 10/08/2016 Appointment: Celeste Ferreira WPtel: [phone] [facility] ACUTE ILLNESS 10/08/2016 Patient Education: Patient Medication [...] : E11.65 09/19/2016 Appointment: Belia Reid WPtel: [address] [place], [place] [phone] 09/18 confirmed`sl FOLLOW UP 09/19/2016 Patient Education: [...] : R10.84 08/20/2016 Appointment: Belia Reid WPtel: [facility]7 [facility] 08/16 confirmed~sl FOLLOW UP 08/20/2016 Patient Education: [...] : J44.9 06/19/2016 Appointment: Belia Reid WPtel: [address] [place], [place] [phone] 06/18 confirmed ~ Hospital Follow Up 06/19/2016 [...] : Z87.440 06/04/2016 Appointment: Belia Reid WPtel: [address] [place], [place] [phone] 06/01 confirmed~ FOLLOW UP 06/04/2016 Patient Education: [...] : R06.1 05/02/2016 Appointment: Belia Reid WPtel: [address] [place], [place] [phone] 05/01 confirmed ~ Hospital Follow Up 05/02/2016 [...] : N39.0 04/03/2016 Appointment: Belia Reid WPtel: [address] [place] [address] [facility] 04/03/2016 Patient Education: Patient Medication Summary Completed 04/03/2016 Visit Plan: Lungs are clear Her symptoms and exam are all upper airway restriction/constriction Can try supportive care Rx as above Follow up PRN 02/29/2016 Appointment: Lidia Hwang [address] [place] [address] ACUTE ILLNESS 02/29/2016 Patient Education: Patient Medication Summary Completed 02/29/2016 Visit Plan: Toradol/Phenergan today for Migraine Change to Clindamycin to cover lactobacillus for UTI Cover with flagyl due to hx of C. Diff 02/02/2016 Appointment: Belia Reid WPtel: [address] [place] [address] 01/31 confirmed` ACUTE ILLNESS 02/02/2016 Patient Education: Patient Medication Summary Completed 02/02/2016 Visit Plan: Increase neurontin to 300mg q AM and 600mg q PM Discussed neurology re-evaluation Flu shot given Need to check on Pneumonia shot Rx written out for albuterol 01/05/2016 Appointment: Belia Reid WPtel: [address] [place] [address] 01/03 confirmed ~ Annual Well Visit 01/05/2016 Patient Education: Patient Medication Summary Completed 01/05/2016 Visit Plan: Cipro Culture urine hydrate Flexeril refilled Alternate heat and ice for back Increase gabapentin to 300mg po BID Notify if worsens 12/05/2015 Appointment: Bel[facility] Reid [facility]Ptel: [phone] [facility] 11/30 confirmed~sl ACUTE ILLNESS 12/05/2015 Patient Education: Patient Medication Summary Completed 12/05/2015 Patient Education: Patient Medication Summary Completed 10/27/2015 Care Plan: [place] : 79[address]-7 Pending 10/27/2015 Care Plan: A1C HPLC LOINC : 81288-1 Pending 10/27/2015 Visit Plan: Lungs are CTA today and is f eeling improved overall Finish meds as ordered Continue inhalers and neb treatments Discussed migraine treatment options She does not feel she needs anything additional added today Refill of Januvia sent since no samples are available today 10/26/2015 Appointment: Lidia Hwang [address] [place], [place] [phone] Hospital Follow Up 10/26/2015 Appointment: Lidia Hwang [address] [place], [place] [phone] CANCELED 10/26/2015 Patient Education: Patient Medication Summary Completed 10/26/2015 Patient Education: Jesseniaia - 18+ - KENNETH - No [place] Completed 10/26/2015 Visit Plan: Office dip still abnormal Cu lture pending Switch to cipro - stop macrobid Push fluids - avoid caffeine Will call with culture results when available Follow up if worsening 10/05/2015 Appointment: Lidia Hwang [address] [place], [place] [phone] ER Follow UP 10/05/2015 Patient Education: Patient Medication Summary Completed 10/05/2015 Visit Plan: Proceed with PT for document ation of ROM and strength of all extremities Proceed with Power Mobility Device Trial of neurontin 300mg q HS--lyrica helped but patient unable to afford Recheck 1month 09/15/2015 Appointment: Belia Reid WPtel: [phone] [facility] 09/13 confirmed~sl SPECIAL 09/15/2015 Patient Education: Patient Medication Summary Completed 09/15/2015 Visit Plan: Fille out Loan Discharge Pap erwork for total and permanent disability 08/25/2015 Patient Education: Patient Medication Summary Completed 08/25/2015 Visit Plan: Discussed with Dr Anushka Haywood at [facility] of head Will get last date of carotid doppler from her floral assistant and update if needed 08/24/2015 Appointment: Lidia Hwang [address] [place] [address] 08/22 confirmed~sl ACUTE ILLNESS 08/24/2015 Patient Education: Patient Medication Summary Completed 08/24/2015 Patient Education: Patient Medication Summary Completed 08/24/2015 Care Plan: US EXAM OF HEAD AND NECK carotid Ultrasound LOIN C : 19390-8 Pending 08/24/2015 Visit Plan: Long discussion about diet A ccuchecks daily Check HbA1C, CMP Change requip to mirapex 07/05/2015 Appointment: Belia Reid WPtel: [address] [place] [address] 07/03 confirmed ~sl FOLLOW UP 07/05/2015 Patient Education: Patient Medication Summary Completed 07/05/2015 Visit Plan: Add Breo ellipta 100 1 p BID Continue SVNs with duoneb QID 06/06/2015 Appointment: Belia Reid WPtel: [address] [place] [address] Patient is calling for a ride, then retu rning our call.-sp 06/01 called and patient stated she will know saturday if she can get a ride~sl 06/05 [facility] Hospital Follow Up 06/06/2015 Patient Education: [...] not improving 05/23/2015 Appointment: Huong Osborne WPtel: [facility] [address] ACUTE ILLNESS 05/23/2015 Appointment: [facility] [facility] [facility] Follow UP 05/23/2015 Patient Education: Patient Medication Summary Completed 05/23/2015 Visit Plan: Check pancreatic enzymes and US of pancreas as patient can't understand why she has diabetes since has no family history Discussed weight, diet, exercise all play an important role in diabetes and are risk factors as well Continue Januvia and accuchecks daily 05/05/2015 Appointment: Belia Reid WPtel: [address] [place], [place] [phone] US FOLLOW UP 05/05/2015 Patient Education: Patient Medication Summary Completed 05/05/2015 Care Plan: US EXAM ABDOM COMPLETE LOINC : 52047-0 Ordered 05/05/2015 Visit Plan: Start Januvia 100mg daily [place] with diflucan and culture urine Accuchecks daily alternating times Recheck 6weeks 03/30/2015 Appointment: Belia Reid WPtel: [address] [place] [address] 03/29 confirmed~lb FOLLOW UP 03/30/2015 Patient Education: Patient Medication Summary Completed 03/30/2015 Appointment: Belia Reid WPtel: [address] [place] [address] 03/01 needs reschedule due to payment and insurance ~sl FOLLOW UP 03/02/2015 Visit Plan: Patient was just in ER last night so has not filled scripts yet Start Carafate and Flagyl and Cipro Add Hyophen 1 po BID Recheck 1mo 02/03/2015 Appointment: Belia Reid WPtel: [address] [place], [place] [phone] 02/02lm ~sl...02/03/15 appt confirmed cn ACUTE I LLNESS 02/03/2015 Patient Education: Patient Medication Summary Completed 02/03/2015 Visit Plan: Warm soaks to vaginal area K elex and Diflucan and observe Zofran to use prn 12/29/2014 Appointment: Belia Reid WPtel: [facility] 12/28 Confirmed ~sl ACUTE ILLNESS 12/29/2014 Patient Education: Patient Medication Summary Completed 12/29/2014 Appointment: Huong Osborne WPtel: [address] [place], [place] [phone] FOLLOW UP 09/24/2014 Appointment: Belia Reid WPtel: [address] [place], [place] [phone] 09/15 confirmed -mf FOLLOW UP 09/16/2014 Visit Plan: Increase requip to 2mg po BI D Increase lyrica to 225mg total a day by adding an extra 75mg in AM Recheck in 2weeks Continue to patch left eye while sleeping 09/02/2014 Appointment: Belia Reid WPtel: [address] [place], [place] [phone] 09/01 appt confirmed Hospital Follow Up 09/02 Patient Education: Patient Medication Summary Completed 09/02/2014 Visit Plan: To [facility]anna for observat ion to R/O CVA 08/25/2014 Appointment: Huong Osborne WPtel: [address] [place], [place] [phone] ACUTE ILLNESS 08/25/2014 Patient Education: Patient Medication Summary Completed 08/25/2014 Referral: Aaron Jonas WPtel: [facility] [address] [place] location Initiated 04/26/2014 Referral: Brian Srinivasan WPtel: [facility] [id number] Referral Initiated 04/20/2014 Appointment: Belia Reid WPtel: [address] [place], [place] [phone] ER Follow UP 04/01/2014 Patient Education: Patient Medication Summary Completed 04/01/2014 Care Plan: MYELOGRAPHY NECK SPINE LOINC : 51372-1 Ordered 04/01/2014 Visit Plan: Continue Symbicort 160 at 2p BID Continue SVNs with duoneb at least QID Finish Levaquin Recheck 1mo on lyrica 03/16/2014 Appointment: Belia Reid WPtel: [address] [place] [address] 03/15 voicemail FOLLOW UP 03/16/2014 Patient Education: Patient Medication Summary Completed 03/16/2014 Visit Plan: Restart SVNs with duoneb QID Repeat prednisone Levaquin Continue symbicort Keep lyrica at same dose Recheck 1week 03/09/2014 Appointment: Belia Reid WPtel: [address] [place], [place] [phone] FOLLOW UP 03/09/2014 Patient Education: Patient Medication Summary Completed 03/09/2014 Appointment: Belia Reid WPtel: [address] [place], [place] [phone] 03/03 showed up 15 minutes late for appt -- put her on Huong's side for 10:45am FORGIVEN PER DR FOLLOW UP 03/03/2014 Appointment: Huong Osborne WPtel: [address] [place], [place] [phone] FOLLOW UP 03/03/2014 Patient Education: Patient Medication Summary Completed 03/03/2014 Appointment: Huong Osborne WPtel: [address] [place], [place] [phone] ER Follow UP 03/01/2014 Patient Education: Patient Medication Summary Completed 03/01/2014 Visit Plan: Add carafate for this next m onth Increase lyrica to 150mg q HS 02/09/2014 Appointment: Belia Reid WPtel: [address] [place], [place] [phone] [facility] Follow Up 02/09/2014 Patient Education: Patient Medication Summary Completed 02/09/2014 Visit Plan: Increase omeprazole back to 40mg po BID Use requip in AM and add lyrica 75mg q HS Recheck 1mo 12/23/2013 Appointment: Belia Reid WPtel: [address] [place] [address] FOLLOW UP 12/23/2013 Patient Education: Patient Medication Summary Completed 12/23/2013 Patient Education: Patient Medication Summary Completed 12/04/2013 Appointment: Belia Reid WPtel: [address] [place] [address] UA 10/30/2013 Patient Education: Patient Medication Summary Completed 10/30/2013 Appointment: Belia Reid WPtel: [address] [place] [address] UA 10/21/2013 Patient Education: Patient Medication Summary Completed 10/21/2013 Visit Plan: Cryotherapy as above TAC and hydroxyzine to use prn to itching spots and itching SKs Add Advair HFA /21 1 p BID 10/05/2013 Appointment: Belia Reid WPtel: [address] [place] [address] 10/01 pt called and confirmed ACUTE ILLNESS Patient Education: Patient Medication Summary Completed 10/05/2013 Appointment: Belia Reid WPtel: [address] [place] [address] will pay copay and part of past balance FOLLOW U P 08/04/2013 Patient Education: Patient Medication Summary Completed 08/04/2013 Appointment: Belia Reid WPtel: [address] [place], [place] [phone] [place] INJECTION 07/13/2013 Patient Education: Patient Medication Summary Completed 07/13/2013 Appointment: Huong Osborne WPtel: [address] [place], [place] [phone] ACUTE ILLNESS 07/03/2013 Patient Education: Patient Medication Summary Completed 07/03/2013 Visit Plan: Cipro and culture urine 05/27/2013 Appointment: Huong Osborneteabigail: [phone] [id number] [place] 05/26 confirmed appt and notified that balance and music copyist y is due at appt time FOLLOW UP 05/27/2013 Patient Education: Patient Medication Summary Completed 05/27/2013 Appointment: Belia Reid WPtel: [address] [place], [place] [phone] [place] UA 05/25/2013 Patient Education: Patient Medication Summary Completed 05/25/2013 Appointment: Belia Reid WPtel: [address] [place], [place] [phone] [place] INJECTION 05/04/2013 Patient Education: Patient Medication Summary Completed 05/04/2013 Appointment: Belia Reid WPtel: [address] [place], [place] [phone] [place] INJECTION 04/17/2013 Patient Education: Patient Medication Summary Completed 04/17/2013 Appointment: Belia Reid WPtel: [address] [place], [place] [phone] [place] INJECTION 04/15/2013 Appointment: Belia Reid WPtel: [address] [place], [place] [phone] 04/02 vm FOLLOW UP 04/06/2013 Patient Education: Patient Medication Summary Completed 04/06/2013 Visit Plan: Obtain lab results including UA from [facility] 11/10/2012 Appointment: Belia Reid WPtel: [address] [place], [place] [phone] ER Follow UP 11/10/2012 Patient Education: Patient Medication Summary Completed 11/10/2012 Appointment: Belia Reid WPtel: [address] [place], [place] [phone] 10/30/12 patient canceled appt due to fin ances. Offered to work something out, patient declined-LB FOLLOW UP 11/05/2012 Visit Plan: Continue Bystolic at current dose Pt has fwup with Neurology on September 16 09/02/2012 Appointment: Belia Reid WPtel: [address] [place] [address] FOLLOW UP 09/02/2012 Patient Education: Patient Medication Summary Completed 09/02/2012 Visit Plan: Continue bystolic at 5mg chris ly Sees Neurology tomorrow Use oxygen at bedtime 08/04/2012 Appointment: Belia Reid WPtel: [address] [place] [address] FOLLOW UP 08/04/2012 Patient Education: Patient Medication Summary Completed 08/04/2012 Appointment: Belia Reid WPtel: [address] [place] [address] Hospital fwup for 07/21/12. merged appointments FOLLOW UP 07/24/2012 Visit Plan: Start Bystolic 5mg daily for tachycardia Fwup with neurology for further workup Overnight O2 sat 07/21/2012 Appointment: Belia Reid WPtel: [address] [place] [address] Hospital Follow Up 07/21/2012 Patient Education: Patient Medication Summary Completed 07/21/2012 Visit Plan: SVN with Albuterol QID Add A velox 400mg daily Notify if worsens or persists 07/02/2012 Appointment: Belia Reid WPtel: [address] [place] [address] ACUTE ILLNESS 07/02/2012 Patient Education: Patient Medication Summary Completed 07/02/2012 Appointment: Beila Reid WPtel: [address] [place], [place] [phone] INJECTION 06/25/2012 Patient Education: Patient Medication Summary Completed 06/25/2012 Appointment: Belia Reid WPtel: [address] [place], [place] [phone] FOLLOW UP 06/24/2012 Patient Education: Patient Medication Summary Completed 06/24/2012 Appointment: Belia Reid WPtel: [address] [place], [place] [id number] 05/19 left message FOLLOW UP 05/20/2012 Patient [...] po TID 05/08/2012 Appointment: Belia Reid WPtel: [address] [place] [id number] ACUTE ILLNESS 05/08/2012 Patient Education: Patient Medication Summary Completed 05/08/2012 Visit Plan: Continue current meds Contin ue lower dose on pain meds and Diazepam Still waiting on paperwork for botox for Migraines Will restart Neurontin at 600mg po q HS Pt going to stop Depakote due to can't afford 04/22/2012 Appointment: Belia Reid WPtel: [address] [place], [place] [id number] 04/21 Hospital Follow Up 04/22/2012 Patient Education: Patient Medication Summary Completed 04/22/2012 Visit Plan: Injection to shoulder as abo ve Continue current meds Has appointment with neurology on HAs in 02/13/2012 Appointment: Belia Reid WPtel: [address] [place], [place] [id number] Pt does not have $10 copay at [facility] t time - will bring it in next week. Kianna iqbal'ed this. - [place] FOLLOW UP 02/13/2012 Patient Education: Patient Medication Summary Completed 02/13/2012 Visit Plan: Proceed with headache specia list Change nexium to Protonix Phenergan to use prn Sumatriptan to use prn Pt still on Inderal 01/28/2012 Appointment: Belia Reid WPtel: [address] [place] [phone] ER Follow UP 01/28/2012 Patient Education: Patient [...] for sleep 12/26/2011 Appointment: Belia Reid WPtel: [address] [place], [place] [phone] 12/24- appt. confirmed FOLLOW UP 2 Patient Education: Patient Medication Summary Completed 12/26/2011 Appointment: Belia Reid WPtel: [address] [place], [place] [phone] [place] FOLLOW UP 11/14/2011 Patient Education: Patient Medication Summary Completed 11/14/2011 Appointment: Belia Reid WPtel: [address] [place], [place] [phone] FOLLOW UP 09/12/2011 Patient Education: Patient Medication Summary Completed 09/12/2011 Visit Plan: Supportive care Decrease Liseth catalino to 50mg q HS Decrease AM dose of Valium to 5mg q HS Use Endocet sparingly 08/15/2011 Appointment: Belia Reid WPtel: [address] [place] [phone] ER Follow UP 08/15/2011 Patient Education: Patient Medication Summary Completed 08/15/2011 Appointment: Belia Reid WPtel: [address] [place], [place] [phone] [place] Spoke directly to patient yesterday and confirmed the appoin tment. cn ACUTE ILLNESS 08/09/2011 Patient Education: Patient Medication Summary Completed 08/09/2011 Appointment: Belia Reid WPtel: [address] [place], [place] [phone] Hospital Follow Up 07/03/2011 Patient Education: Patient Medication Summary Completed 07/03/2011 Appointment: Belia Reid WPtel: [address] [place], [place] [address] FOLLOW UP 06/04/2011 Patient Education: Patient Medication Summary Completed 06/04/2011 Visit Plan: Pt. wants "allergy shot" but in fact wants steroid shot. Will take a break from "generic Zyrtec they are getting from [facility]" and try Singulair for 2 weeks. 05/03/2011 Appointment: Iraida Jones WPtel: [address] [place] [address] ACUTE ILLNESS 05/03/2011 Patient Education: Patient Medication Summary Completed 05/03/2011 Visit Plan: Neurontin 400mg q HS for 1we ek then 800mg q HS Decrease requip to 1mg q HS for 2wks then stop Fwup 2mos 04/05/2011 Appointment: Belia Reid WPtel: [address] [place] [phone] FOLLOW UP 04/05/2011 Patient Education: Patient Medication Summary Completed 04/05/2011 Visit Plan: Trial of neurontin in 2wks C ontinue current meds for stomach Pt has procedure with Dr. Ortiz next week for stone removal 03/08/2011 Appointment: Belia Reid WPtel: [address] [place] [phone] Hospital Follow Up 03/08/2011 Patient Education: Patient Medication Summary Completed 03/08/2011 Appointment: Belia Reid WPtel: [address] [place], [place] [phone] FOLLOW UP 02/19/2011 Visit Plan: reports increased [...] with Flagyl 01/24/2011 Appointment: Iraida Jones WPtel: [address] [place] [address] ACUTE ILLNESS 01/24/2011 Patient Education: Patient Medication Summary Completed 01/24/2011 Appointment: Belia Reid WPtel: [address] [place] [address] [place] FOLLOW UP 01/02/2011 Patient Education: Patient Medication Summary Completed 01/02/2011 Appointment: Belia Reid WPtel: [address] [place] [address] FOLLOW UP 12/12/2010 Appointment: Belia Reid WPtel: [address] [place] [address] ACUTE ILLNESS 12/07/2010 Patient Education: Patient Medication Summary Completed 12/07/2010 Visit Plan: Increase Buspar to 10mg po B ID 11/16/2010 Appointment: Belia Reid WPtel: [address] [place] [address] [place] FOLLOW UP 11/16/2010 Patient Education: Patient Medication Summary Completed 11/16/2010 Appointment: Iraida Jones WPtel: [address] [place] [address] ER Follow UP 11/02/2010 Patient Education: Patient Medication Summary Completed 11/02/2010 Visit Plan: Depo-Medrol/Kenalog given fo r allergies Add BuSpar for anxiety Oxycodone one p.o. q.i.d. for number 120 refilled 10/18/2010 Appointment: Belia Reid WPtel: [address] [place] [address] [place] FOLLOW UP 10/18/2010 Patient Education: Patient Medication Summary Completed 10/18/2010 Visit Plan: Continue current meds Discus sed epidurals for back vs PT--will proceed with epidurals to thoracolumbar region to see if helps with pain 09/19/2010 Appointment: Belia Reid WPtel: [address] [place] [address] FOLLOW UP 09/19/2010 Patient Education: Patient Medication Summary Completed 09/19/2010 Visit Plan: DC MS contin Check CT scan t horacic spine Fwup pending above results 09/06/2010 Appointment: Belia Reid WPtel: [address] [place] [address] FOLLOW UP 09/06/2010 Patient Education: Patient Medication Summary Completed 09/06/2010 Visit Plan: Continue current meds Restar t MS contin 15mg po BID and use oxycodone prn Use daily senokot-s 2 po BID 08/10/2010 Appointment: Belia Reid WPtel: [address] [place] [address] FOLLOW UP 08/10/2010 Patient Education: Patient Medication Summary Completed 08/10/2010 Visit Plan: Depomedrol/Kenalog given Pt sees ENT later this month Cont current meds Mammo scheduled 05/11/2010 Appointment: Belia Reid WPtel: [address] [place] [address] FOLLOW UP 05/11/2010 Patient Education: Patient Medication Summary Completed 05/11/2010 Appointment: Belia Reid WPtel: [address] [place], [place] [phone] [place] [address] 05/04/2010 Patient Education: Patient Medication Summary Completed 05/04/2010 Visit Plan: Pt sent to lab for UA 04/28/2010 Appointment: Belia Reid WPtel: [address] [place] [address] 04/28/2010 Patient Education: Patient Medication Summary Completed 04/28/2010 Visit Plan: Check CT angiogram of chest Restart Advair Use proair prn Cont current meds Fwup with Card as schedulec 04/06/2010 Appointment: Belia Reid WPtel: [address] [place], [place] [phone] [place] [address] Follow Up 04/06/2010 Patient Education: Patient Medication Summary Completed 04/06/2010 Visit Plan: Paperwork filled out for pow erchair Depomedrol/kenalog given Pt sees ENT in 2wks to assess nasal obstruction problems 02/09/2010 Appointment: Belia Reidtel: [address] [place], [place] [phone] ESTABLISHED PATIENT 02/09/2010 Patient Education: Patient Medication Summary Completed 02/09/2010 Visit Plan: Change Elavil to Trazadone 1 50mg q HS Diflucan and nystatin for tinea cruris 01/05/2010 Appointment: Belia Reid WPtel: [address] [place] [address] FOLLOW UP 01/05/2010 Patient Education: Patient Medication Summary Completed 01/05/2010 Appointment: Belia Reid WPtel: [address] [place] [address] FOLLOW UP 12/07/2009 Patient Education: Patient Medication Summary Completed 12/07/2009 Appointment: Belia Reidtel: [address] [place] [address] FOLLOW UP 11/22/2009 Visit Plan: Cont current meds and await MRI results from Dr. Meadows's office and his final recommendations Will need to follow-up at later date on deviated septum 11/08/2009 Appointment: Belia Reid WPtel: [address] [place] [phone] [place] FOLLOW UP 11/08/2009 Patient Education: Patient Medication Summary Completed 11/08/2009 Visit Plan: Cont PT/OT See Neurosurgery Cont Tortoise shell brace 10/24/2009 Appointment: Belia Reid WPtel: [address] [place], [place] [phone] FOLLOW UP 10/24/2009 Patient Education: Patient Medication Summary Completed 10/24/2009 Appointment: Belia Reid WPtel: [phone] [facility] Hospital Follow Up 10/17/2009 Appointment: Belia Reid WPtel: [address] [place], [place] [phone] ACUTE ILLNESS 07/25/2009 Patient Education: Patient Medication Summary Completed 07/25/2009 Appointment: Belia Reid WPtel: [address] [place], [place] [address] FOLLOW UP 05/26/2009 Patient Education: Patient Medication Summary Completed 05/26/2009 Referral: Chino Balderas WPtel: [phone] [id number] [place] Referral Initiated Referral: Merry Vale WPtel: [facility] [id number] Vale will review referral and book appointment Completed Referral: Francisco Javier Yoder WPtel: [address] Patient needs EGD insurance will not inc rease a medication unless this procedure results show a need Completed Referral: Francisco Javier Yoder WPtel: [address] [id number] [place] Referral Historical Reference Referral: Francisco Javier Yoder WPtel: [address] [place] [address] [place] Referral Initiated Instructions Comment . 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 Long discussion [...] . Check pancreatic enzymes and US of chicas trayas as patient can't understand why she has [...] from "generic Zyrtec they are getting from [place]" and try Singulair for 2 weeks. . [...]
--- OUTSIDE RECORDS SUMMARY | 2019-06-24 16:19 | XMS REPORT | CCD ---
Author Author Diana Reid D.O. Organization [facility] Address [address] [place] [address] Phone Care Team Providers Care Printing Services Coordinator Name Role Phone Belia Reid D.O., PP Unavailable CCM Unavailable Summary Purpose Interface Exchange Insurance Providers Payer name Policy type / Coverage type Covered green party ID Effective Begin Date Effective End Date [employer] MEDICARE Medicare Part B [id number] 2019 Unknown Family History Family History data not found Social History Social History Element Codes Description Effective Dates Tobacco history SNOMED CT: 057264500 Nonsmoker 09/13/2010 Allergies, Adverse Reactions, Alerts Substance Reaction Codes Entered Date Inactivated Date Status Eggs reaction [id number] 09/15/2015 No Inactive Date Active _ Unknown [...] Fill Instructions Levaquin 500 mg tablet RxNorm: 350493 1 Tablet(s) Oral QD 06/16/2019 06/23/2019 Inactive Flagyl 500 mg tablet RxNorm: 110765 1 Tablet(s) Oral three time s a day 06/16/2019 06/23/2019 Inactive Vancocin 125 mg capsule RxNorm: 608313 1 Capsule(s) Oral four t imes a day 06/08/2019 06/18/2019 Inactive diltiazem CD 240 mg capsule,extended release 24 hr RxNorm: 8 13474 1 Capsule(s) Oral QD 05/26/2019 11/21/2019 Active omeprazole 40 mg capsule,delayed release RxNorm: 245917 1 Capsule(s) Oral two times a day 05/26/2019 11/21/2019 Active Flagyl 500 mg tablet RxNorm: 464614 1 Tablet(s) Oral three time s a day 05/26/2019 06/05/2019 Inactive Cipro 250 mg tablet RxNorm: 326995 1 Tablet(s) Oral two times a day 05/26/2019 06/02/2019 Inactive hydroxyzine HCl 25 mg tablet RxNorm: 572618 1 Tablet(s) Oral QPM for itching/aniety 05/21/2019 06/27/2019 Active metoprolol tartrate 25 mg tablet RxNorm: 468030 1 Table t(s) Oral two times a day 05/21/2019 08/19/2019 Active hydroxyzine HCl 25 mg tablet RxNorm: 392434 1 Tablet(s) Oral QPM for itching/aniety 05/13/2019 05/20/2019 Inactive Singulair 10 mg tablet RxNorm: 342300 1 Tablet(s) Oral QPM 05/06/19 20 05/12/2019 Inactive gabapentin 600 mg tablet RxNorm: 795103 1 Tablet(s) Oral QD 020 06/05/2019 Inactive Valium 5 mg tablet RxNorm: 625152 1 Tablet(s) Oral QPM for stri joao/muscle spasm 04/29/2019 05/29/2019 Inactive baclofen 10 mg tablet RxNorm: 360962 1 Tablet(s) Oral QPM for s pasm/neck pain 04/24/2019 05/23/2019 Inactive baclofen 10 mg tablet RxNorm: 742652 1 Tablet(s) Oral QPM for s pasm/neck pain 04/24/2019 04/23/2019 Inactive Novolin N NPH U-100 Insulin isophane 100 unit/mL subcu taneous susp RxNorm: 642426 23 Unit(s) Subcutaneous two times a day 04/20/2019 No Stop Date A ctive cyclobenzaprine 5 mg tablet RxNorm: 429245 1 Tablet(s) Oral three times a day as needed 04/16/2019 04/23/2019 Inactive hydroxyzine HCl 25 mg tablet RxNorm: 847918 1 Tablet(s) Oral three times a day for itching/aniety 04/08/2019 05/12/2019 Inactive gabapentin 600 mg tablet RxNorm: 199987 1 Tablet(s) Oral two ti mes a day 04/08/2019 05/05/2019 Inactive gabapentin 600 mg tablet RxNorm: 484313 1 Tablet(s) Oral two ti mes a day 04/08/2019 04/07/2019 Inactive Novolin N NPH U-100 Insulin isophane 100 unit/mL subcu taneous susp RxNorm: 960774 10 Unit(s) Subcutaneous two times a day 03/03/2019 04/19/2019 I nactive gabapentin 300 mg capsule RxNorm: 033067 1 Capsule(s) O ral every night at bedtime for neuropathy 02/26/2019 04/07/2019 Inactive gabapentin 300 mg capsule RxNorm: 586307 1 Capsule(s) O ral every night at bedtime for neuropathy 02/20/2019 02/25/2019 Inactive pramipexole 1 mg tablet RxNorm: 481895 1 Tablet(s) Oral QPM FOR RESTLESS LEGS (REPLACES REQUIP) 02/12/2019 02/07/2020 Active buspirone 5 mg tablet RxNorm: 717594 TAKE 1 TABLET THREE TIMES MILDRED Y 02/12/2019 05/12/2019 Inactive Lexapro 10 mg tablet RxNorm: 469104 TAKE 1 TABLET EVERY DAY FOR MOO D 01/31/2019 No Stop Date Active Ativan 0.5 mg tablet RxNorm: 048407 TAKE 1 TABLET BY [facility] THREE TIMES DAILY NEEDED FOR ANXIETY 01/26/2019 04/28/2019 Inactive Ativan 0.5 mg tablet RxNorm: 631899 TAKE 1 TABLET BY [facility] THREE TIMES DAILY NEEDED FOR ANXIETY 01/05/2019 01/05/2019 Inactive Levaquin 500 mg tablet RxNorm: 917151 1 Tablet(s) Oral QD 12/25/2018 12/24/2018 Inactive Levaquin 500 mg tablet RxNorm: 454712 1 Tablet(s) Oral QD 12/25/2018 01/04/2019 Inactive baclofen 10 mg tablet RxNorm: 985073 1 Tablet(s) Oral three maico es a day 11/20/2018 01/19/2019 Inactive Ativan 0.5 mg tablet RxNorm: 847509 TAKE 1 TABLET BY [facility] THREE TIMES DAILY NEEDED FOR ANXIETY 11/20/2018 01/04/2019 Inactive gabapentin 300 mg capsule RxNorm: 147853 1 Capsule(s) O ral every night at bedtime for neuropathy 11/20/2018 12/20/2018 Inactive Lexapro 10 mg tablet RxNorm: 889943 1 Tablet(s) PO QD for mood 07/201801/30/2019 Inactive Zithromax Z-Lj 250 mg tablet RxNorm: 073000 Tablet(s) PO take as directed 11/04/2018 11/19/2018 Inactive Insulin Syringe 1 mL 29 gauge x 1/2" RxNorm: 2 s yringes daily with insulin Dx: E11.65 10/08/2018 No Stop Date Active gabapentin 300 mg capsule RxNorm: 546318 1 Capsule(s) PO QHS fo r neuropathy 09/18/2018 10/17/2018 Inactive cyclobenzaprine 5 mg tablet RxNorm: 102299 1 Tablet(s) PO TID a s needed 09/09/2018 09/08/2018 Inactive cyclobenzaprine 5 mg tablet RxNorm: 699487 1 Tablet(s) PO TID a s needed 09/09/2018 10/08/2018 Inactive prednisone 20 mg tablet RxNorm: 370815 1 Tablet(s) PO QD 09/08/2018 0 09/12/2018 Inactive Lantus Solostar U-100 Insulin 100 unit/mL (3 mL) subcu taneous pen RxNorm: 629217 55 Unit(s) SQ QAM 08/28/2018 11/03/2018 Inactive hydroxyzine HCl 25 mg tablet RxNorm: 464625 1 Tablet(s) PO QHS for itching 08/20/2018 05/12/2019 Inactive Lexapro 10 mg tablet RxNorm: 521015 1 Tablet(s) PO QD for mood 08/0210/18/2018 Inactive sumatriptan 100 mg tablet RxNorm: 598325 1 Tablet(s) PO at headache onset. May repeat 1 in two hours if headache remains. Max of 2 per 24 hours 04/02/2018 05/20/2018 Inactive Diflucan 150 mg tablet RxNorm: 366394 1 Tablet(s) PO QD 03/18/2018 Inactive Diflucan 150 mg tablet RxNorm: 996909 1 Tablet(s) PO QD 03/18/2018 Inactive Flagyl 500 mg tablet RxNorm: 506102 1 Tablet(s) PO TID 03/17/2018 Inactive Levaquin 500 mg tablet RxNorm: 061288 1 Tablet(s) PO QD 03/17/2018 Inactive Levaquin 500 mg tablet RxNorm: 550900 1 Tablet(s) PO QD 03/17/2018 Inactive Flagyl 500 mg tablet RxNorm: 426857 1 Tablet(s) PO TID 03/17/2018 Inactive ketoconazole 200 mg tablet RxNorm: 973019 1 Tablet(s) PO QD 019 03/19/2018 Inactive Celebrex 200 mg capsule RxNorm: 443145 1 Capsule(s) PO BID 02/06/20 18 05/20/2018 Inactive tramadol 50 mg tablet RxNorm: 362362 1 Tablet(s) PO TID as needed 1 04/08/2017 05/20/2018 Inactive gabapentin 300 mg capsule RxNorm: 787868 1 Capsule(s) PO BID 201705/20/2018 Inactive Diflucan 150 mg tablet RxNorm: 681409 1 Tablet(s) PO QD 01/20/2018 Inactive pramipexole 1 mg tablet RxNorm: 725599 1 Tablet(s) PO Q PM FOR RESTLESS LEGS (REPLACES REQUIP) 01/08/2018 02/11/2019 Inactive cyclobenzaprine 10 mg tablet RxNorm: 865480 1 Tablet(s) PO TID as needed for muscle spasm 12/17/2017 05/20/2018 Inactive pramipexole 1 mg tablet RxNorm: 401378 TAKE 1 TABLET BY MOUTH ONCE DAILY IN THE EVENING FOR RESTLESS LEGS (REPLACES REQUIP) 12/04/2017 01/05/2018 Inac tive Amaryl 4 mg tablet RxNorm: 118690 1 Tablet(s) PO BID replaces 2mg 0 11/05/2017 12/16/2017 Inactive Singulair 10 mg tablet RxNorm: 800103 1 Tablet(s) PO QHS for al lergies/lungs 10/30/2017 12/16/2017 Inactive Diflucan 100 mg tablet RxNorm: 484531 1 Tablet(s) PO QD 10/23/2017 Inactive Ativan 0.5 mg tablet RxNorm: 040168 TAKE 1 TABLET BY MOUTH THRE E TIMES DAILY 08/30/2017 11/20/2018 Inactive buspirone 5 mg tablet RxNorm: 348605 1 Tablet(s) PO TID 07/11/2017 Inactive propranolol 60 mg tablet RxNorm: 272066 1 Tablet(s) PO BID repl aces 40mg dose 06/26/2017 12/16/2017 Inactive Amaryl 4 mg tablet RxNorm: 232535 1 Tablet(s) PO BID replaces 2mg 0 06/12/2017 11/05/2017 Inactive omeprazole 40 mg capsule,delayed release RxNorm: 959508 1 Capsule(s) PO BID TAKE ONE CAPSULE BY MOUTH TWICE DAILY 05/30/2017 11/25/2017 Inactive pramipexole 1 mg tablet RxNorm: 686076 1 Tablet(s) PO Q PM for restless legs--replaces requip 05/30/2017 11/25/2017 Inactive amitriptyline 50 mg tablet RxNorm: 985601 1 Tablet(s) PO QHS 201709/16/2017 Inactive Diflucan 100 mg tablet RxNorm: 547130 1 Tablet(s) PO BID 05/07/2017 0 05/20/2017 Inactive nystatin (bulk) 100 million unit powder RxNorm: Application TO P BID 05/07/2017 05/20/2018 Inactive cholestyramine (with sugar) 4 gram oral powder RxNorm: 473058 1 Unit Dose PO QD 05/07/2017 01/20/2018 Inactive Ativan 0.5 mg tablet RxNorm: 075186 TAKE ONE TABLET BY MOUTH TH REE TIMES DAILY 05/01/2017 09/02/2017 Inactive Trulicity 1.5 mg/0.5 mL subcutaneous pen injector RxNorm: 15 33587 1 Unit Dose SQ WEEKLY 02/22/2017 03/23/2017 Inactive doxycycline hyclate 100 mg capsule RxNorm: 5125884 1 Capsule(s) PO BID 01/23/2017 02/05/2017 Inactive Amaryl 4 mg tablet RxNorm: 955606 1 Tablet(s) PO BID replaces 2mg 1 03/25/2016 05/22/2017 Inactive magnesium oxide 400 mg capsule RxNorm: 325286 1 Capsule(s) PO QD 07/18/2017 Inactive Ativan 0.5 mg tablet RxNorm: 018974 TAKE ONE TABLET BY MOUTH TH REE TIMES DAILY 01/17/2017 05/01/2017 Inactive Amaryl 2 mg tablet RxNorm: 587778 1 Tablet(s) PO BID 12/27/201601/22 Inactive Amaryl 2 mg tablet RxNorm: 949435 1 Tablet(s) PO BID 12/26/201612/26 Inactive Ativan 0.5 mg tablet RxNorm: 721263 TAKE ONE TABLET BY MOUTH TH REE TIMES DAILY 12/05/2016 01/18/2017 Inactive pramipexole 1 mg tablet RxNorm: 493987 1 Tablet(s) PO Q PM for restless legs--replaces requip 11/26/2016 05/30/2017 Inactive Mobic 15 mg tablet RxNorm: 625845 1 Tablet(s) PO QD 10/08/20162016 Inactive cyclobenzaprine 5 mg tablet RxNorm: 862145 1/2- 1 Tablet(s) PO TID 10/08/2016 10/17/2016 Inactive Ativan 0.5 mg tablet RxNorm: 319019 1 Tablet(s) PO TID 09/20/201607/2016 Inactive amitriptyline 50 mg tablet RxNorm: 452525 1 Tablet(s) PO QHS 201605/30/2017 Inactive propranolol 60 mg tablet RxNorm: 129710 1 Tablet(s) PO BID repl aces 40mg dose 09/19/2016 06/26/2017 Inactive Ativan 0.5 mg tablet RxNorm: 520786 1 Tablet(s) PO TID 08/20/2016 Inactive omeprazole 40 mg capsule,delayed release RxNorm: 216198 1 Capsule(s) PO BID TAKE ONE CAPSULE BY MOUTH TWICE DAILY 08/20/2016 05/30/2017 Inactive amitriptyline 50 mg tablet RxNorm: 416641 1 Tablet(s) PO QHS 201609/18/2016 Inactive pramipexole 1 mg tablet RxNorm: 073273 1 Tablet(s) PO Q PM for restless legs--replaces requip 07/23/2016 11/25/2016 Inactive Amaryl 2 mg tablet RxNorm: 673020 1 Tablet(s) PO BID 07/23/201612/27 Inactive propranolol 40 mg tablet RxNorm: 778613 1 Tablet(s) PO BID 07/13/19 17 09/18/2016 Inactive Ativan 0.5 mg tablet RxNorm: 979445 1 Tablet(s) PO QID 06/19/2016 Inactive Amaryl 2 mg tablet RxNorm: 684680 1 Tablet(s) PO BID 06/19/201607/22 Inactive Ativan 0.5 mg tablet RxNorm: 243965 1 Tablet(s) PO QID 06/19/2016 Inactive buspirone 5 mg tablet RxNorm: 640897 1 Tablet(s) PO TID 06/19/2016 Inactive Ativan 0.5 mg tablet RxNorm: 196841 1 Tablet(s) PO BID 05/24/2016 Inactive buspirone 5 mg tablet RxNorm: 882542 1 Tablet(s) PO TID 05/23/2016 Inactive Macrobid 100 mg capsule RxNorm: 696390 1 Capsule(s) PO QOD 05/03/19 17 10/07/2016 Inactive pramipexole 1 mg tablet RxNorm: 884485 Tablet(s) 1 Tabl et(s) PO QPM for restless legs--replaces requip 04/26/2016 06/24/2016 Inactive propranolol 40 mg tablet RxNorm: 224135 TAKE ONE TABLET BY MOUT H TWICE DAILY 04/26/2016 06/24/2016 Inactive Detrol LA 4 mg capsule,extended release RxNorm: 121812 1 Capsul e(s) PO QHS 04/03/2016 05/02/2016 Inactive prednisone 20 mg tablet RxNorm: 340214 1 Tablet(s) PO QD 02/29/2016 0 03/04/2016 Inactive Actos 30 mg tablet RxNorm: 797009 TAKE ONE TABLET BY MOUTH ONCE DAILY 02/27/2016 12/19/2016 Inactive clindamycin 300 mg capsule RxNorm: 120951 1 Capsule(s) PO TID 02/0102/08/2016 Inactive Flagyl 500 mg tablet RxNorm: 926736 1 Tablet(s) PO BID 02/02/201609/2015 Inactive omeprazole 40 mg capsule,delayed release RxNorm: 333410 TAKE ONE CAPSULE BY MOUTH TWICE DAILY 01/15/2016 07/12/2016 Inactive gabapentin 300 mg capsule RxNorm: 458755 1 Capsule(s) PO QAM an d 2 po q HS 01/05/2016 06/18/2016 Inactive gabapentin 300 mg capsule RxNorm: 926487 1 Capsule(s) P O BID 1 Capsule(s) PO QHS 12/05/2015 01/04/2016 Inactive cyclobenzaprine 10 mg tablet RxNorm: 952442 1 Tablet(s) PO TID for spasm as needed for muscle spasm 12/05/2015 06/18/2016 Inactive ciprofloxacin 250 mg tablet RxNorm: 147535 1 Tablet(s) PO BID 12/0412/14/2015 Inactive pramipexole 1 mg tablet RxNorm: 844022 Tablet(s) 1 Tabl et(s) PO QPM for restless legs--replaces requip 11/07/2015 11/26/2016 Inactive Januvia 100 mg tablet RxNorm: 252810 1 Tablet(s) PO QD 10/26/201504/2015 Inactive propranolol 40 mg tablet RxNorm: 651549 TAKE ONE TABLET BY MOUT H TWICE DAILY 10/25/2015 04/21/2016 Inactive gabapentin 300 mg capsule RxNorm: 522108 1 Capsule(s) PO QHS 201512/04/2015 Inactive Cipro 500 mg tablet RxNorm: 706284 1 Tablet(s) PO BID 10/05/201511/2015 Inactive pramipexole 1 mg tablet RxNorm: 991142 Tablet(s) 1 Tabl et(s) PO QPM for restless legs--replaces requip 10/04/2015 11/02/2015 Inactive propranolol 40 mg tablet RxNorm: 804265 TAKE ONE TABLET BY MOUT H TWICE DAILY 09/26/2015 10/24/2015 Inactive Amaryl 2 mg tablet RxNorm: 220453 1 Tablet(s) PO QD 09/15/20152016 Inactive gabapentin 300 mg capsule RxNorm: 037777 1 Capsule(s) PO QHS 201510/14/2015 Inactive buspirone 5 mg tablet RxNorm: 906675 1 Tablet(s) PO TID 09/15/2015 Inactive pramipexole 1 mg tablet RxNorm: 631799 Tablet(s) 1 Tabl et(s) PO QPM for restless legs--replaces requip 09/08/2015 10/03/2015 Inactive pramipexole 1 mg tablet RxNorm: 084453 1 Tablet(s) PO Q PM for restless legs--replaces requip 08/08/2015 09/08/2015 Inactive Amaryl 2 mg tablet RxNorm: 631496 1 Tablet(s) PO QD 07/07/20152015 Inactive pramipexole 1 mg tablet RxNorm: 613883 1 Tablet(s) PO Q PM for restless legs--replaces requip 07/05/2015 08/03/2015 Inactive ropinirole 2 mg tablet RxNorm: 899677 TAKE ONE TABLET BY MOUTH TWICE DAILY 05/09/2015 09/14/2015 Inactive Diflucan 100 mg tablet RxNorm: 319752 1 Tablet(s) PO QD 03/30/2015 Inactive propranolol 40 mg tablet RxNorm: 173797 1 Tablet(s) PO BID 02/24/20 15 08/21/2015 Inactive [SAVINGS FOR UNINSURED PATIE NTS -- BIN:879389, PCN: ASPROD1, Group: AME08, ID# [id number], Process claim through [employer], for questions: . THIS IS NOT INSURANCE.] Flagyl 500 mg tablet RxNorm: 675425 1 Tablet(s) PO BID 02/03/201502/2015 Inactive Cipro 500 mg tablet RxNorm: 652693 1 Tablet(s) PO BID 02/03/201502/01 Inactive Carafate 1 gram tablet RxNorm: 322652 1 Tablet(s) PO QID make i nto slurry 02/03/2015 09/14/2015 Inactive ondansetron HCl 4 mg tablet RxNorm: 579264 1 Tablet(s) PO Q4H as needed for nausea 12/29/2014 01/04/2016 Inactive Diflucan 100 mg tablet RxNorm: 280540 1 Tablet(s) PO QD 12/29/2014 Inactive Keflex 500 mg capsule RxNorm: 752468 1 Capsule(s) PO TID 12/29/2014 1 03/09/2014 Inactive omeprazole 40 mg capsule,delayed release RxNorm: 040022 1 Capsu le(s) PO BID 12/27/2014 12/21/2015 Inactive [SAVINGS FOR UNINSUR ED PATIENTS -- BIN:466470, PCN: ASPROD1, Group: AME08, ID# [id number], Process claim through [employer], for questions: . THIS IS NOT INSURANCE.] ropinirole 2 mg tablet RxNorm: 745981 1 Tablet(s) PO BID 09/29/2014 0 03/27/2015 Inactive [SAVINGS FOR UNINSURED PATIENTS -- BIN:0 96023, PCN: ASPROD1, Group: AME08, ID# [id number], Process claim through [employer], for questions: . THIS IS NOT INSURANCE.] buspirone 5 mg tablet RxNorm: 877421 1 Tablet(s) PO TID 09/17/2014 Inactive ropinirole 2 mg tablet RxNorm: 738963 1 Tablet(s) PO BID 09/02/2014 0 09/28/2014 Inactive [SAVINGS FOR UNINSURED PATIENTS -- BIN:0 46207, PCN: ASPROD1, Group: AME08, ID# [id number], Process claim through [employer], for questions: . THIS IS NOT INSURANCE.] Zyrtec 10 mg tablet RxNorm: 9734800 1 Tablet(s) PO QD 09/02/201412/02 Inactive propranolol 40 mg tablet RxNorm: 856389 1 Tablet(s) PO BID 07/21/19 15 02/23/2015 Inactive [SAVINGS FOR UNINSURED PATIE NTS -- BIN:846539, PCN: ASPROD1, Group: AME08, ID# [id number], Process claim through [employer], for questions: . THIS IS NOT INSURANCE.] ropinirole 2 mg tablet RxNorm: 608425 1 Tablet(s) PO QHS 05/14/2014 0 09/01/2014 Inactive [SAVINGS FOR UNINSURED PATIENTS -- BIN:0 31082, PCN: ASPROD1, Group: AME08, ID# [id number], Process claim through [employer], for questions: . THIS IS NOT INSURANCE.] cyclobenzaprine 10 mg tablet RxNorm: 754525 1 Tablet(s) PO QHS for spasm 04/06/2014 09/01/2014 Inactive ipratropium-albuterol 0.5 mg-3 mg(2.5 mg base)/3 mL ne bulization soln RxNorm: 9432871 1 Unit Dose INH Q4H 03/16/2014 No Stop Date Active [SAVINGS FOR UNINSURED PATIENTS -- BIN:066966, PCN: ASPROD1, Group: AME08, ID# [id number], Process claim through [employer], for questions: . THIS IS NOT INSURANCE.] prednisone 20 mg tablet RxNorm: 444171 1 Tablet(s) PO BID 03/09/2014 03/15/2014 Inactive [SAVINGS FOR UNINSURED PATIENTS -- BIN:0 98551, PCN: ASPROD1, Group: AME08, ID# [id number], Process claim through [employer], for questions: . THIS IS NOT INSURANCE.] ipratropium-albuterol 0.5 mg-3 mg(2.5 mg base)/3 mL ne bulization soln RxNorm: 4919636 1 Unit Dose INH Q4H 03/09/2014 03/15/2014 Inactive [SAVINGS FOR UNINSURED PATIENTS -- BIN:155266, PCN: ASPROD1, Group: AME08, ID# [id number], Process claim through [employer], for questions: . THIS IS NOT INSURANCE.] Levaquin 500 mg tablet RxNorm: 036431 1 Tablet(s) PO QD 03/09/2014 Inactive [SAVINGS FOR UNINSURED PATIENTS -- BIN:0 93159, PCN: ASPROD1, Group: AME08, ID# [id number], Process claim through [employer], for questions: . THIS IS NOT INSURANCE.] Carafate 1 gram tablet RxNorm: 893462 1 Tablet(s) PO AC & HS ma ke into slurry 02/09/2014 09/01/2014 Inactive [SAVINGS FOR UNINSUR ED PATIENTS -- BIN:557800, PCN: ASPROD1, Group: AME08, ID# [id number], Process claim through [employer], for questions: . THIS IS NOT INSURANCE.] Fioricet 50 mg-300 mg-40 mg capsule RxNorm: 1354026 1-2 Capsule(s) PO Q4H as needed for headache --max of 6 a day 02/09/2014 09/01/2014 Inactive [SAVINGS FOR UNINSURED PATIENTS -- BIN:914808, PCN: ASPROD1, Group: AME08, ID# [id number], Process claim through [employer], for questions: . THIS IS NOT INSURANCE.] propranolol 40 mg tablet RxNorm: 272124 1 Tablet(s) PO BID 12/08/19 14 06/04/2014 Inactive [SAVINGS FOR UNINSURED PATIE NTS -- BIN:697489, PCN: ASPROD1, Group: AME08, ID# [id number], Process claim through [employer], for questions: . THIS IS NOT INSURANCE.] buspirone 5 mg tablet RxNorm: 459778 1 Tablet(s) PO TID 12/02/2013 Inactive omeprazole 40 mg capsule,delayed release RxNorm: 926095 1 Capsu le(s) PO BID 11/25/2013 11/19/2014 Inactive [SAVINGS FOR UNINSUR ED PATIENTS -- BIN:149917, PCN: ASPROD1, Group: AME08, ID# [id number], Process claim through [employer], for questions: . THIS IS NOT INSURANCE.] ropinirole 2 mg tablet RxNorm: 470817 1 Tablet(s) PO QHS 11/10/2013 0 05/08/2014 Inactive [SAVINGS FOR UNINSURED PATIENTS -- BIN:0 01236, PCN: ASPROD1, Group: AME08, ID# [id number], Process claim through [employer], for questions: . THIS IS NOT INSURANCE.] Cipro 500 mg tablet RxNorm: 767999 1 Tablet(s) PO BID 10/21/201312/03 Inactive [SAVINGS FOR UNINSURED PATIENTS -- BIN:0 55665, PCN: ASPROD1, Group: AME08, ID# [id number], Process claim through [employer], for questions: . THIS IS NOT INSURANCE.] hydroxyzine HCl 25 mg tablet RxNorm: 532597 1 Tablet(s) PO Q4-6 H as needed 10/05/2013 01/04/2016 Inactive [SAVINGS FOR UNINSUR ED PATIENTS -- BIN:982077, PCN: ASPROD1, Group: AME08, ID# [id number], Process claim through [employer], for questions: . THIS IS NOT INSURANCE.] triamcinolone acetonide 0.1 % topical cream RxNorm: 5364996 Appl ication TOP BID 10/05/2013 09/01/2014 Inactive [SAVINGS FOR UNINSUR ED PATIENTS -- BIN:821379, PCN: ASPROD1, Group: AME08, ID# [id number], Process claim through [employer], for questions: . THIS IS NOT INSURANCE.] albuterol sulfate HFA 90 mcg/actuation aerosol inhaler RxNor m: 1662409 2 Puff(s) INH Q4H as needed for cough 10/01/2013 12/22/2013 Inactive [MAKSIM INGS FOR UNINSURED PATIENTS -- BIN:403367, PCN: ASPROD1, Group: AME08, ID# [id number], Process claim through [employer], for questions: . THIS IS NOT INSURANCE.] propranolol 40 mg tablet RxNorm: 435608 1 Tablet(s) PO BID 09/02/19 14 11/29/2013 Inactive [SAVINGS FOR UNINSURED PATIE NTS -- BIN:918482, PCN: ASPROD1, Group: AME08, ID# [id number], Process claim through [employer], for questions: . THIS IS NOT INSURANCE.] propranolol 40 mg tablet RxNorm: 560744 1 Tablet(s) PO BID 08/05/19 14 08/31/2013 Inactive [SAVINGS FOR UNINSURED PATIE NTS -- BIN:616045, PCN: ASPROD1, Group: AME08, ID# [id number], Process claim through [employer], for questions: . THIS IS NOT INSURANCE.] Toprol XL 50 mg tablet,extended release RxNorm: 427013 1 Tablet (s) PO QHS 07/23/2013 08/03/2013 Inactive Macrobid 100 mg capsule RxNorm: 613467 1 Capsule(s) PO BID 07/04/19 14 07/09/2013 Inactive Toprol XL 50 mg tablet,extended release RxNorm: 176432 1 Tablet (s) PO QHS 05/28/2013 06/26/2013 Inactive ciprofloxacin 500 mg tablet RxNorm: 551185 1 Tablet(s) PO BID 05/2706/02/2013 Inactive Bystolic 5 mg tablet RxNorm: 788318 1 Tablet(s) PO QD 05/27/201305/03 Inactive ropinirole 2 mg tablet RxNorm: 066251 1 Tablet(s) PO QHS 04/22/2013 0 11/09/2013 Inactive Cipro 250 mg tablet RxNorm: 341659 1 Tablet(s) PO BID 04/06/201311/2013 Inactive ropinirole 2 mg tablet RxNorm: 623495 1 Tablet(s) PO QHS 02/17/2013 0 04/21/2013 Inactive Amaryl 2 mg tablet RxNorm: 688918 1 Tablet(s) PO QAM 11/11/201211/10 Inactive Amaryl 2 mg tablet RxNorm: 990774 1 Tablet(s) PO QAM 11/11/201204/05 Inactive omeprazole 40 mg capsule,delayed release RxNorm: 385610 1 Capsu le(s) PO BID 08/14/2012 08/08/2013 Inactive Bystolic 5 mg tablet RxNorm: 697814 1 Tablet(s) PO QD 08/14/201205/03 Inactive propranolol 60 mg tablet RxNorm: 760269 Tablet(s) PO TAKE 1 TAB LET TWICE DAILY 08/01/2012 09/01/2012 Inactive Bystolic 5 mg tablet RxNorm: 051529 1 Tablet(s) PO QD 07/21/201207/02 Inactive Bystolic 5 mg tablet RxNorm: 408814 1 Tablet(s) PO QD 07/21/201207/03 Inactive Prilosec 40 mg capsule,delayed release RxNorm: 263298 1 Capsule (s) PO BID 06/24/2012 07/21/2012 Inactive buspirone 10 mg tablet RxNorm: 001282 1 Tablet(s) PO TID 05/08/2012 0 05/23/2016 Inactive Valium 10 mg tablet RxNorm: 920927 1 Tablet(s) PO BID 04/02/201207/03 Inactive Endocet 10 mg-325 mg tablet RxNorm: 0726522 1 Tablet(s) PO QID 03/0607/21/2012 Inactive as needed for severe pain Valium 10 mg tablet RxNorm: 931810 1 Tablet(s) PO BID 02/27/2012 No S top Date Active Endocet 10 mg-325 mg tablet RxNorm: 1420958 1 Tablet(s) PO QID 02/0203/27/2012 Inactive as needed for severe pain Endocet 10 mg-325 mg tablet RxNorm: 5845967 1 Tablet(s) PO QID 01/0302/26/2012 Inactive as needed for severe pain Valium 10 mg tablet RxNorm: 190763 1 Tablet(s) PO BID 01/29/2012 No S top Date Active Protonix 40 mg tablet,delayed release RxNorm: 836169 1 Tablet(s ) PO QD 01/28/2012 07/21/2012 Inactive metformin ER 500 mg tablet,extended release 24 hr RxNorm: 86 0977 1 Tablet(s) PO QD 12/26/2011 07/20/2012 Inactive Trazadone 150 mg Tablet RxNorm: 1 Tablet(s) PO QHS prn sleep 1 04/23/2012 Inactive Endocet 10 mg-325 mg tablet RxNorm: 8536908 1 Tablet(s) PO QID 12/0301/24/2012 Inactive as needed for severe pain Nexium 40 mg capsule,delayed release RxNorm: 847175 1 Capsule(s ) PO QD 12/26/2011 01/27/2012 Inactive Symbicort 160 mcg-4.5 mcg/actuation HFA Aerosol Inhaler RxNo rm: 6306143 2 Puff(s) INH BID 12/04/2011 07/21/2012 Inactive Endocet 10 mg-325 mg tablet RxNorm: 3561198 1 Tablet(s) PO QID 11/0312/25/2011 Inactive as needed for severe pain metformin ER 500 mg tablet,extended release 24 hr RxNorm: 86 0977 1 Tablet(s) PO QD 11/20/2011 12/19/2011 Inactive metformin ER 500 mg tablet,extended release 24 hr RxNorm: 86 0977 1 Tablet(s) PO QD 11/20/2011 11/19/2011 Inactive amitriptyline 100 mg tablet RxNorm: 318555 Tablet(s) PO QHS 1 a nd 1/2 tabs QHS 11/12/2011 11/13/2011 Inactive Valium 10 mg tablet RxNorm: 882639 1 Tablet(s) PO BID 11/09/2011 No S top Date Active Endocet 10 mg-325 mg tablet RxNorm: 2121354 1 Tablet(s) PO QID 10/0211/14/2011 Inactive as needed for severe pain Aricept 10 mg Tab RxNorm: 880758 1 Tablet(s) PO QD 10/05/2011 013 Inactive Valium 10 mg tablet RxNorm: 216760 1 Tablet(s) PO BID 10/05/2011 No S top Date Active Endocet 10 mg-325 mg Tab RxNorm: 3521960 1 Tablet(s) PO QID 012 10/09/2011 Inactive as needed for severe pain Aricept 10 mg Tab RxNorm: 836900 1 Tablet(s) PO QD 08/14/2011 Inactive Endocet 10 mg-325 mg Tab RxNorm: 1538778 1 Tablet(s) PO QID 012 08/31/2011 Inactive as needed for severe pain Valium 10 mg Tab RxNorm: 304547 1 Tablet(s) PO BID 08/02/2011 No Stop Date Active propranolol 60 mg tablet RxNorm: 819842 1 Tablet(s) PO BID 07/26/19 12 09/11/2011 Inactive amitriptyline 100 mg tablet RxNorm: 634986 Tablet(s) PO QHS 1 a nd /2 tabs QHS 06/20/2011 09/11/2011 Inactive buspirone 10 mg tablet RxNorm: 091595 1 Tablet(s) PO BID 06/18/2011 0 09/15/2011 Inactive propranolol 60 mg Tab RxNorm: 541906 1 Tablet(s) PO BID 06/18/2011 Inactive gabapentin 800 mg Tab RxNorm: 942970 1 Tablet(s) PO BID 06/18/2011 Inactive ropinirole 2 mg tablet RxNorm: 668538 1 Tablet(s) PO QHS 05/29/2011 0 08/26/2011 Inactive trimethoprim 100 mg Tab RxNorm: 321084 1 Tablet(s) PO QHS 05/29/2011 07/21/2012 Inactive Endocet 10 mg-325 mg Tab RxNorm: 2379949 1 Tablet(s) PO QID 012 2011 Inactive as needed for severe pain Valium 10 mg Tab RxNorm: 315639 1 Tablet(s) PO QHS N eed to take med as prescribed. this is a 40 day RX. No early fills. 05/17/2011 05/20/2018 Inactive propranolol 60 mg Tab RxNorm: 355624 1 Tablet(s) PO BID 04/16/2011 Inactive Neurontin 800 mg Tab RxNorm: 336491 1 Tablet(s) PO QHS 04/05/201103/2011 Inactive Endocet 10 mg-325 mg Tab RxNorm: 9168643 1 Tablet(s) PO QID 012 05/02/2011 Inactive as needed for severe pain oxycodone-acetaminophen 10 mg-325 mg tablet RxNorm: 7502239 1 Ta blet(s) PO Q4H 03/28/2011 05/19/2012 Inactive Valium 10 mg Tab RxNorm: 453636 1 Tablet(s) PO QHS 03/28/2011 012 Inactive buspirone 10 mg Tab RxNorm: 323628 1 Tablet(s) PO BID 03/27/201106/02 Inactive propranolol 60 mg Tab RxNorm: 087000 1 Tablet(s) PO BID 03/19/2011 Inactive Klor-Con M20 20 mEq Tab RxNorm: 0621287 1 Tablet(s) PO QD 03/19/2011 07/21/2012 Inactive Aricept 10 mg Tab RxNorm: 837654 1 Tablet(s) PO QD 02/27/2011 012 Inactive propranolol 60 mg Tab RxNorm: 539582 1 Tablet(s) PO BID 02/19/2011 Inactive omeprazole 40 mg capsule,delayed release RxNorm: 483097 1 Capsu le(s) PO BID 01/24/2011 05/23/2011 Inactive clindamycin 300 mg capsule RxNorm: 759534 1 Capsule(s) PO TID 01/2402/02/2011 Inactive propranolol 60 mg Tab RxNorm: 001970 1 Tablet(s) PO BID 01/22/2011 No Stop Date Active nystatin 100,000 unit/g Topical Cream RxNorm: 796109 Applicatio n TOP BID 01/15/2011 01/14/2011 Inactive to rash for 2-4 week s Diflucan 200 mg Tab RxNorm: 811917 1 Tablet(s) PO QD 01/15/201101/28 Inactive buspirone 10 mg Tab RxNorm: 724089 1 Tablet(s) PO BID 01/08/201103/05 Inactive Valium 10 mg Tab RxNorm: 207018 1 Tablet(s) PO QHS 01/05/2011 012 Inactive Diflucan 200 mg Tab RxNorm: 004132 1 Tablet(s) PO QD 01/01/201101/14 Inactive Diflucan 200 mg Tab RxNorm: 922290 1 Tablet(s) PO QD 12/18/201012/31 Inactive Valium 10 mg Tab RxNorm: 494601 1 Tablet(s) PO QHS 12/12/2010 011 Inactive Diflucan 200 mg Tab RxNorm: 314889 1 Tablet(s) PO QD 12/07/201012/18 Inactive Aricept 10 mg Tab RxNorm: 680811 1 Tablet(s) PO QD 11/20/2010 011 Inactive ropinirole 1 mg Tab RxNorm: 102902 1 Tablet(s) PO QHS 11/16/201005/03 Inactive enalapril maleate 5 mg Tab RxNorm: 922844 1 Tablet(s) PO QD 011 05/20/2018 Inactive buspirone 10 mg Tab RxNorm: 539694 1 Tablet(s) PO BID 11/16/201012/02 Inactive Valium 10 mg Tab RxNorm: 130620 1 Tablet(s) PO QHS 11/07/2010 011 Inactive Pyridium 100 mg Tab RxNorm: 6019195 1 Tablet(s) PO TID 11/02/201004/2010 Inactive Macrobid 100 mg Cap RxNorm: 6180341 1 Capsule(s) PO BID 11/02/2010 Inactive buspirone 10 mg Tab RxNorm: 083587 1 Tablet(s) PO QHS 10/18/201005/02 Inactive propranolol 60 mg Tab RxNorm: 490665 1 Tablet(s) PO BID 09/18/2010 Inactive Valium 10 mg Tab RxNorm: 491786 1 Tablet(s) PO QHS 09/05/2010 011 Inactive Aricept 10 mg Tab RxNorm: 932637 1 Tablet(s) PO QD 08/14/2010 011 Inactive Valium 10 mg Tab RxNorm: 305852 1 Tablet(s) PO QHS 06/26/2010 011 Inactive ropinirole 1 mg Tab RxNorm: 238513 1 Tablet(s) PO QHS 06/19/201010/02 Inactive omeprazole 40 mg Cap, delayed release RxNorm: 155825 1 Capsule( s) PO QD 06/07/2010 10/04/2010 Inactive Endocet 10 mg-325 mg Tab RxNorm: 9602161 1 Tablet(s) PO QID as needed for severe pain 06/07/2010 03/07/2011 Inactive Endocet 10 mg-325 mg Tab RxNorm: 4670755 1 Tablet(s) PO QID as needed for severe pain 05/04/2010 06/02/2010 Inactive Valium 10 mg Tab RxNorm: 395737 1 Tablet(s) PO QHS 05/01/2010 011 Inactive propranolol 60 mg Tab RxNorm: 073897 1 Tablet(s) PO BID 04/03/2010 Inactive Valium 10 mg Tab RxNorm: 797704 1 Tablet(s) PO QHS 03/28/2010 011 Inactive omeprazole 40 mg Cap, Delayed Release RxNorm: 398403 1 Capsule( s) PO QD 03/28/2010 06/06/2010 Inactive Endocet 10 mg-325 mg Tab RxNorm: 4069455 1 Tablet(s) PO QID prn ari n 03/27/2010 05/20/2018 Inactive Valium 10 mg Tab RxNorm: 947161 1 Tablet(s) PO QHS 02/20/2010 011 Inactive Diflucan 100 mg Tab RxNorm: 303378 1 Tablet(s) PO BID 01/23/201003/2009 Inactive Diflucan 100 mg Tab RxNorm: 289477 1 Tablet(s) PO BID 01/05/201001/02 Inactive Aricept 10 mg Tab RxNorm: 124915 1 Tablet(s) PO QD 12/01/2009 011 Inactive OxyContin 20 mg 12 hr Tab RxNorm: 5519412 1 Tablet(s) PO BID 200904/05/2010 Inactive oxycodone-acetaminophen 10 mg-325 mg Tab RxNorm: 8679175 1 Table t(s) PO Q4H 11/22/2009 11/26/2009 Inactive Phenergan 25 mg Tab RxNorm: 902395 1 Tablet(s) PO PRN MIGRAINE 11/0303/07/2011 Inactive Demerol 100 mg Tab RxNorm: 426034 1 Tablet(s) PO PRN MIGRAINE 11/2203/07/2011 Inactive Oxycodone-Acetaminophen 10 mg-325 mg Tab RxNorm: 4217779 1 Table t(s) PO Q4H 10/11/2009 10/15/2009 Inactive Percocet 10 mg-325 mg Tab RxNorm: 8823290 1 Tablet(s) PO Q4H 200910/24/2009 Inactive propranolol 60 mg Tab RxNorm: 340142 1 Tablet(s) PO BID 08/29/2009 Inactive Valium 10 mg Tab RxNorm: 661178 1 Tablet(s) PO QHS 08/16/2009 010 Inactive Keflex 500 mg Cap RxNorm: 897928 1 Capsule(s) PO BID 07/25/200907/31 Inactive Hydroxyzine 25 mg Tab RxNorm: 391093 1 Tablet(s) PO TID 07/25/2009 Inactive Prednisone 20 mg Tab RxNorm: 936781 1 Tablet(s) PO BID 07/25/2009 Inactive Demerol 100 mg Tab RxNorm: 112419 1 Tablet(s) PO PRN MIGRAINE 07/25 No Stop Date Active Ropinirole 1 mg Tab RxNorm: 183416 1 Tablet(s) PO HS 07/20/200902/14 Inactive Valium 10 mg Tab RxNorm: 993208 1 Tablet(s) PO QHS 07/18/2009 010 Inactive Endocet 10 mg-325 mg Tab RxNorm: 4444907 1 Tablet(s) PO TID 010 07/07/2009 Inactive Demerol 100 mg Tab RxNorm: 244719 1 Tablet(s) PO PRN MIGRAINE 06/08 No Stop Date Active Ropinirole 1 mg Tab RxNorm: 089069 1 Tablet(s) PO HS 05/16/200907/14 Inactive ipratropium-albuterol 0.5 mg-3 mg(2.5 mg base)/3 mL ne bulization soln RxNorm: 4841498 1 Unit Dose INH Q4H as needed No Start Date Active MagOx 400 mg (241.3 mg magnesium) tablet RxNorm: 214768 1 Table t(s) PO BID No Start Date Active Vitamin B12 1000mcg Tablet RxNorm: 1 Tablet(s) PO QD No Start Date Active Vitamin D3 5,000 unit tablet RxNorm: 663173 1 Tablet(s) PO QD No Star t Date Active Tylenol Arthritis Pain 650 mg tablet,extended release RxNorm : 4629424 1 Tablet(s) PO Q4H No Start Date Active Lotrimin AF 2 % topical powder RxNorm: 356502 1 Application TOP BID No Start Date Active enalapril maleate 5 mg Tab RxNorm: 749081 1 Tablet(s) PO QD No Star t Date 07/20/2012 Inactive Demerol 100 mg Tab RxNorm: 226590 Tablet(s) PO PRN MIGRAINE No Star t Date 06/02/2009 Inactive metformin 500 mg tablet RxNorm: 344196 1 Tablet(s) PO QD No Start D ate 04/05/2013 Inactive Breo Ellipta 100 mcg-25 mcg/dose powder for inhalation RxNor m: 6979672 1 Puff(s) INH BID No Start Date 01/04/2016 Inactive Mag-Oxide 400 mg Tab RxNorm: 085244 1 Tablet(s) PO QD No Start Date 0 07/21/2012 Inactive Cipro 500 mg Tab RxNorm: 474526 1 Tablet(s) PO QD No Start Date 04/05 Inactive Ativan 0.5 mg tablet RxNorm: 940417 1 Tablet(s) PO TID as needed No Start Date 05/06/2019 Inactive melatonin 3 mg tablet RxNorm: 247530 2 Tablet(s) PO QHS No Start Da te 08/19/2018 Inactive buspirone 10 mg Tab RxNorm: 068188 1 Tablet(s) PO QD No Start Date Inactive sucralfate 100 mg/mL Oral Susp RxNorm: 880282 2 Teaspoon(s) PO QID No Start Date 07/21/2012 Inactive hydrocodone 5 mg-acetaminophen 325 mg tablet RxNorm: 709029 1 Tablet(s) PO Q4H as needed No Start Date 08/19/2018 Inactive Amaryl 2 mg tablet RxNorm: 412262 1 Tablet(s) PO BID No Start Date Inactive OxyContin 20 mg 12 hr Tab RxNorm: 8822653 1 Tablet(s) PO BID No Sta rt Date 11/27/2009 Inactive propranolol 40 mg tablet RxNorm: 165985 1 Tablet(s) PO QID No Start Date 01/19/2018 Inactive Trazadone 150 mg Tablet RxNorm: 1-2 Tablet(s) PO QHS prn sleep No Start Date 08/09/2010 Inactive propranolol 60 mg Tab RxNorm: 076485 1/2 Tablet(s) PO BID No Start Date 01/21/2011 Inactive insulin NPH and regular human subcutaneous RxNorm: 5706285 subcu taneous No Start Date 11/20/2018 Inactive Ativan 0.5 mg tablet RxNorm: 494503 1 Tablet(s) PO QID No Start Date 06/18/2016 Inactive Vasotec 5 mg Tab RxNorm: 127206 1 Tablet(s) PO BID No Start Date 06/2011 Inactive Toprol XL 50 mg tablet,extended release RxNorm: 612688 1 Tablet (s) PO BID No Start Date 04/05/2013 Inactive Ativan 0.5 mg tablet RxNorm: 079313 1 Tablet(s) PO TID No Start Date 05/25/2016 Inactive Klor-Con M20 20 mEq Tab RxNorm: 7009179 1 Tablet(s) PO QD No Start Date 03/19/2011 Inactive sumatriptan 100 mg tablet RxNorm: 580516 1 Tablet(s) PO at headache onset--repeat in 2hrs if remains No Start Date 07/21/2012 Inactive propranolol 60 mg Tab RxNorm: 327196 1 Tablet(s) PO BID No Start Da te 08/28/2009 Inactive Cholestyramine Light 4 gram Oral Powder RxNorm: 8299878 1 Unit Dose PO QD in water No Start Date 07/21/2012 Inactive nystatin 100,000 unit/g Topical Powder RxNorm: 751432 Applicati on TOP BID No Start Date 07/21/2012 Inactive vitamin K85-dbtzj acid sublingual RxNorm: sublingual No Start Date 07/05/2013 Inactive cyclobenzaprine 5 mg tablet RxNorm: 851209 1/2-1 Tablet (s) PO TID as needed for muscle spasm No Start Date 07/18/2017 Inactive tramadol 50 mg tablet RxNorm: 010558 2 Tablet(s) PO TID as need ed for pain No Start Date 09/01/2014 Inactive aspirin 81 mg Tab RxNorm: 475885 1 Tablet(s) PO QOD No Start Date 04/2013 Inactive Vitamin B12 1000mcg Tablet RxNorm: 1 Tablet(s) PO QD No Start Date 07/18/2017 Inactive cholestyramine (with sugar) 4 gram oral powder RxNorm: 75578 3 1 Unit(s) PO QD as needed No Start Date 05/20/2018 Inactive ProAir HFA 90 mcg/Actuation Aerosol Inhaler RxNorm: 177541 2 Puff(s) INH Q4H prn shortness of breath No Start Date 07/21/2012 Inactive pravastatin 10 mg Tab RxNorm: 768673 1 Tablet(s) PO QD No Start Date 07/21/2012 Inactive gabapentin 800 mg Tab RxNorm: 457138 1 Tablet(s) PO BID No Start Da te 06/03/2011 Inactive Endocet 10 mg-325 mg Tab RxNorm: 5051218 1 Tablet(s) PO TID No Star t Date 06/02/2009 Inactive Naproxen 500 mg Tab RxNorm: 292936 1 Tablet(s) PO BID No Start Date 0 04/05/2010 Inactive Valium 10 mg Tab RxNorm: 187710 1 Tablet(s) PO BID No Start Date 07/04 Inactive enalapril maleate 5 mg Tab RxNorm: 449984 1 Tablet(s) PO QD No Star t Date 11/15/2010 Inactive doxepin 10 mg capsule RxNorm: 7845290 2 Capsule(s) PO QHS No Start Date 09/17/2018 Inactive MS Contin 15 mg Tab RxNorm: 434681 1 Tablet(s) PO BID No Start Date 0 09/18/2010 Inactive buspirone 5 mg tablet RxNorm: 954134 1 Tablet(s) PO TID No Start Da te 12/01/2013 Inactive [place] 3 Fish Oil Cap RxNorm: 1 Capsule(s) PO QD No Start Date 07/03 Inactive enalapril maleate 5 mg Tab RxNorm: 908315 1/2 Tablet(s) PO QD No St art Date 03/07/2011 Inactive Lyrica 75 mg capsule RxNorm: 881747 1 Capsule(s) PO QHS No Start Da te 02/08/2014 Inactive Lopressor 100 mg tablet RxNorm: 777605 1 Tablet(s) PO BID No Start Date 06/08/2018 Inactive Lantus Solostar U-100 Insulin 100 unit/mL (3 mL) subcu taneous pen RxNorm: 004993 45 Unit(s) SQ QAM No Start Date 05/20/2018 Inactive aspirin 81 mg tablet RxNorm: 181818 1 Tablet(s) PO QD No Start Date 0 09/14/2015 Inactive diltiazem CD 240 mg capsule,extended release 24 hr RxNorm: 8 75690 1 Capsule(s) PO QD No Start Date 05/25/2019 Inactive insulin NPH isophane U-100 human subcutaneous RxNorm: 547550 beckwith bcutaneous No Start Date 04/20/2019 Inactive sumatriptan 100 mg tablet RxNorm: 693472 1 Tablet(s) PO at headache onset. May repeat 1 in two hours if headache remains. Max of 2 per 24 hours No Start Date 04/01/2018 Inactive gabapentin 300 mg capsule RxNorm: 467670 1 Capsule(s) PO QHS No Sta rt Date 02/04/2018 Inactive Topamax 25 mg Tab RxNorm: 359598 Oral No Start Date 03/07/2011 In active Senokot-S 8.6 mg-50 mg Tab RxNorm: 6354281 1 Tablet(s) PO QD No Sta rt Date 03/07/2011 Inactive metformin ER 500 mg 24 hr tablet,extended release RxNorm: 18 71844 1 Tablet(s) PO QD No Start Date 05/20/2018 Inactive Symbicort 80 mcg-4.5 mcg/actuation HFA Aerosol Inhaler RxNor m: 1109619 2 Puff(s) INH BID No Start Date 04/05/2013 Inactive metoprolol tartrate 25 mg tablet RxNorm: 570127 1 Tablet(s) PO BID No Start Date 05/20/2019 Inactive propranolol 60 mg Tab RxNorm: 711982 1/2 Tablet(s) PO BID No Start Date 07/21/2012 Inactive metformin ER 500 mg 24 hr tablet,extended release RxNorm: 18 41835 2 Tablet(s) PO QD No Start Date 12/16/2017 Inactive Insulin Syringe 1 mL 29 gauge x 1/2" RxNorm: 2 s yringes daily with insulin Dx: E11.65 No Start Date 10/07/2018 Inactive Amitriptyline 75 mg Tab RxNorm: 665878 1 Tablet(s) PO QHS No Start Date 10/23/2009 Inactive donepezil 10 mg Tab RxNorm: 564246 1 Tablet(s) PO QD No Start Date Inactive Lantus Solostar U-100 Insulin 100 unit/mL (3 mL) subcu taneous pen RxNorm: 570931 36 Unit(s) SQ QAM No Start Date 12/24/2017 Inactive Miacalcin 200 unit/Actuation Nasal Dupo Aerosol RxNorm: 261 204 1 Dupo NASAL QD Alternate nostrils each day No Start Date 04/05/2010 Inactive Amitriptyline 150 mg Tab RxNorm: 416818 1 Tablet(s) PO QHS No Start Date 01/04/2010 Inactive Bystolic 5 mg tablet RxNorm: 469189 1 Tablet(s) PO QD No Start Date 0 08/13/2012 Inactive Aricept 10 mg Tab RxNorm: 766590 1 Tablet(s) PO QD No Start Date 11/03 Inactive Lantus Solostar U-100 Insulin 100 unit/mL (3 mL) subcu taneous pen RxNorm: 447083 50 Unit(s) SQ QAM No Start Date 08/27/2018 Inactive albuterol sulfate 2.5 mg/3 mL (0.083 %) Neb Solution RxNorm: 095281 1 Unit Dose INH QID as needed No Start Date 08/23/2015 Inactive Symbicort 160 mcg-4.5 mcg/actuation HFA Aerosol Inhaler RxNo rm: 6467462 2 Puff(s) INH BID No Start Date 12/03/2011 Inactive Savella 50 mg Tab RxNorm: 785919 1 Tablet(s) PO BID No Start Date 04/2010 Inactive amitriptyline 100 mg Tab RxNorm: 243170 1 1/2 Tablet(s) PO QHS No S tart Date 06/19/2011 Inactive nystatin 100,000 unit/g Topical Cream RxNorm: 671153 Ap plication TOP BID to rash for 2-4 weeks No Start Date 01/14/2011 Inactive Trelegy Ellipta 100 mcg-62.5 mcg-25 mcg powder for inhalatio n RxNorm: 9510988 1 Puff(s) INH QD No Start Date 12/16/2017 Inactive Lyrica 150 mg capsule RxNorm: 585610 1 Capsule(s) PO QHS No Start D ate 12/04/2015 Inactive sennosides 8.6 mg tablet RxNorm: 624114 1 Tablet(s) PO BID No Start Date 09/07/2018 Inactive metformin ER 500 mg tablet,extended release 24 hr RxNorm: 86 0975 1 Tablet(s) PO QD No Start Date 10/22/2017 Inactive Fish Oil 1,000 mg Cap RxNorm: 1 Capsule(s) PO QD No Start Date 06/2011 Inactive Zyrtec 10 mg Tab RxNorm: 0237456 1 Tablet(s) PO QD No Start Date 07/03 Inactive albuterol sulfate HFA 90 mcg/actuation aerosol inhaler RxNor m: 7227403 2 Puff(s) INH Q4H as needed for cough No Start Date 09/30/2013 Inactive trazodone 150 mg tablet RxNorm: 149888 1 Tablet(s) PO QHS No Start Date 07/21/2012 Inactive Spiriva with HandiHaler 18 mcg & inhalation capsules RxNorm: 975132 1 Capsule(s) INH QD No Start Date 04/05/2013 Inactive Coreg 3.125 mg Tab RxNorm: 115381 1 Tablet(s) PO BID No Start Date Inactive Phenergan 25 mg Tab RxNorm: 312131 Tablet(s) PO PRN MIGRAINE No Sta rt Date 11/21/2009 Inactive Vitamin D 50,000 unit Cap RxNorm: 4917825 1 Capsule(s) PO QW No Sta rt Date 03/07/2011 Inactive Januvia 100 mg tablet RxNorm: 533678 1 Tablet(s) PO QD No Start Date 10/25/2015 Inactive Eliquis 5 mg tablet RxNorm: 1045208 1 Tablet(s) PO BID No Start Date 08/19/2018 Inactive Advair Diskus 500 mcg-50 mcg/Dose for Inhalation RxNorm: 656399 1 INH BID No Start Date 07/21/2012 Inactive Vitamin D3 5,000 unit tablet RxNorm: 199582 1 Tablet(s) PO QD No St art Date 07/18/2017 Inactive Amaryl 2 mg tablet RxNorm: 824119 1 Tablet(s) PO QD No Start Date 06/2015 Inactive Actos 30 mg tablet RxNorm: 916878 1 Tablet(s) PO QD No Start Date Inactive promethazine 25 mg tablet RxNorm: 235555 1 Tablet(s) PO Q4H prn N/V No Start Date 07/21/2012 Inactive ProAir HFA 90 mcg/actuation Aerosol Inhaler RxNorm: 245393 2 Puff(s) INH Q4H prn dyspnea No Start Date 07/21/2012 Inactive Dexilant 60 mg Capsule RxNorm: 208977 1 Capsule(s) PO QD No Start D ate 01/27/2012 Inactive Lantus Solostar U-100 Insulin 100 unit/mL (3 mL) subcu taneous pen RxNorm: 864090 38 Unit(s) SQ QAM No Start Date 05/20/2018 Inactive Valium 10 mg Tab RxNorm: 235594 1 Tablet(s) PO QHS AND PRN No Start Date 10/24/2009 Inactive ZOFRAN ODT 8 mg disintegrating tablet RxNorm: 375261 1 Tablet(s ) PO Q6H No Start [...] Date S ervice Location MICROALBUMIN URINE RANDOM 92255 MICRL MG/L 14.9 MG/L Unknown MICROALBUMIN URINE RANDOM 34537 XM.ALB/CRE 6.1 MG/GCR Unknown MICROALBUMIN URINE RANDOM 39081 CREAT MG/D 243 MG/DL Unknown MICROALBUMIN URINE RANDOM 73614 CRE/100 2.43 G/L 03/05 Unknown PROTEIN/CREAT URINE WITH RATIO 11770|42833 PROT R U 14 MG/D L 04/01/2014 Unknown PROTEIN/CREAT URINE WITH RATIO 79128|12128 CREAT R U 254 MG/ DL 04/01/2014 Unknown PROTEIN/CREAT URINE WITH RATIO 17984|34568 XRATIO P/C 55 MG/ G 04/01/2014 Unknown URINALYSIS 96142 PROTEIN UR NEG 04/28/2010 Unknown URINALYSIS 31634 HEMGLBN UR NEG 04/28/2010 Unknown URINALYSIS 53524 GLUCOSE UR NEG 04/28/2010 Unknown URINALYSIS 25297 KETONES UR NEG 04/28/2010 Unknown URINALYSIS 39195 PH U 5.5 04/28/2010 Unknown URINALYSIS 83711 SP GR U 1.025 04/28/2010 Unknown URINALYSIS 31671 BILRUBN UR NEG 04/28/2010 Unknown URINALYSIS 37379 LEUKO UR 2+ 04/28/2010 Unknown URINALYSIS 94727 NITRITE UR NEG 04/28/2010 Unknown MICR CUL? [id number] WBC/HPF 6-10 04/28/2010 Unknown MICR CUL? [id number] RBC/HPF 0-5 04/28/2010 Unknown MICR CUL? [id number] HYAL CAST 16-25 04/28/2010 Unknown MICR CUL? [id number] SP TO YOLIE? NO 04/28/2010 Unknown MICR CUL? [id number] APPEAR UR NORMAL 04/28/2010 Unknown MICR CUL? [id number] SQ EPI/LPF FEW 04/28/2010 Unknown Procedures Procedure Codes Date URINALYSIS NONAUTO W/O SCOPE CPT-4: 38558 04/16/2019 URINE CULTURE/ COLONY COUNT CPT-4: 86603 04/16/2019 CEFTRIAXONE SODIUM INJECTION CPT-4: J0696 04/16/2019 THER/PROPH/DIAG INJ SC/IM CPT-4: 47245 04/16/2019 DRAIN/INJECT JOINT/BURSA CPT-4: 90486 01/22/2019 TRIAMCINOLONE ACET INJ NOS CPT-4: J3301 01/22/2019 DEXAMETHASONE SODIUM PHOS CPT-4: J1100 01/22/2019 URINE CULTURE/ COLONY COUNT CPT-4: 63298 01/07/2019 URINALYSIS NONAUTO W/O SCOPE CPT-4: 23077 01/07/2019 CEFTRIAXONE SODIUM INJECTION CPT-4: J0696 01/07/2019 THER/PROPH/DIAG INJ SC/IM CPT-4: 46908 01/07/2019 FLU VACC PRSV FREE INC ANTIG 65 AND OLDER CPT-4: 48771 12/24/2018 FLU VACC PRSV FREE INC ANTIG 65 AND OLDER CPT-4: 89590 12/24/2018 ADMIN INFLUENZA VIRUS VAC CPT-4: G0008 12/24/2018 THER/PROPH/DIAG INJ SC/IM CPT-4: 80421 11/04/2018 KETOROLAC TROMETHAMINE INJ CPT-4: J1885 11/04/2018 PROMETHAZINE HCL INJECTION CPT-4: J2550 11/04/2018 PPPS, subseq visit CPT-4: G0439 09/18/2018 THER/PROPH/DIAG INJ SC/IM CPT-4: 80769 04/01/2018 KETOROLAC TROMETHAMINE INJ CPT-4: J1885 04/01/2018 PROMETHAZINE HCL INJECTION CPT-4: J2550 04/01/2018 URINE CULTURE/ COLONY COUNT CPT-4: 61797 03/17/2018 URINALYSIS NONAUTO W/O SCOPE CPT-4: 74054 03/17/2018 FLU VACC PRSV FREE INC ANTIG 65 AND OLDER CPT-4: 82936 12/17/2017 PNEUMOCOCCAL VACC 23 RANDALL IM CPT-4: 79248 12/17/2017 ADMIN INFLUENZA VIRUS VAC CPT-4: G0008 12/17/2017 ADMIN PNEUMOCOCCAL VACCINE CPT-4: G0009 12/17/2017 PPPS, subseq visit CPT-4: G0439 09/17/2017 THER/PROPH/DIAG INJ SC/IM CPT-4: 96774 08/26/2017 KETOROLAC TROMETHAMINE INJ CPT-4: J1885 08/26/2017 PROMETHAZINE HCL INJECTION CPT-4: J2550 08/26/2017 URINALYSIS NONAUTO W/O SCOPE CPT-4: 50452 07/19/2017 URINE CULTURE/ COLONY COUNT CPT-4: 29920 07/19/2017 CEFTRIAXONE SODIUM INJECTION CPT-4: J0696 07/19/2017 THER/PROPH/DIAG INJ SC/IM CPT-4: 05101 07/19/2017 THER/PROPH/DIAG INJ SC/IM CPT-4: 16432 07/19/2017 TRIAMCINOLONE ACET INJ NOS CPT-4: J3301 07/19/2017 PRESCRIP TRANSMIT VIA ERX SY CPT-4: G8553 05/07/2017 PRESCRIP TRANSMIT VIA ERX SY CPT-4: G8553 02/22/2017 PRESCRIP TRANSMIT VIA ERX SY CPT-4: G8553 01/23/2017 FLU VACC PRSV FREE INC ANTIG 65 AND OLDER CPT-4: 81019 12/20/2016 PNEUMOCOCCAL VACC 13 RANDALL IM CPT-4: 13571 12/20/2016 ADMIN INFLUENZA VIRUS VAC CPT-4: G0008 12/20/2016 ADMIN PNEUMOCOCCAL VACCINE CPT-4: G0009 12/20/2016 URINALYSIS NONAUTO W/O SCOPE CPT-4: 60876 10/08/2016 URINE CULTURE/ COLONY COUNT CPT-4: 44338 10/08/2016 PRESCRIP TRANSMIT VIA ERX SY CPT-4: G8553 10/08/2016 PRESCRIP TRANSMIT VIA ERX SY CPT-4: G8553 09/19/2016 PRESCRIP TRANSMIT VIA ERX SY CPT-4: G8553 08/20/2016 PRESCRIP TRANSMIT VIA ERX SY CPT-4: G8553 02/29/2016 KETOROLAC TROMETHAMINE INJ CPT-4: J1885 02/02/2016 THER/PROPH/DIAG INJ SC/IM CPT-4: 64548 02/02/2016 PROMETHAZINE HCL INJECTION CPT-4: J2550 02/02/2016 PRESCRIP TRANSMIT VIA ERX SY CPT-4: G8553 02/02/2016 FLU VACC PRSV FREE INC ANTIG 65 AND OLDER CPT-4: 71815 01/05/2016 PPPS, subseq visit CPT-4: G0439 01/05/2016 ADMIN INFLUENZA VIRUS VAC CPT-4: G0008 01/05/2016 URINE CULTURE/ COLONY COUNT CPT-4: 73628 12/05/2015 URINALYSIS NONAUTO W/O SCOPE CPT-4: 76230 12/05/2015 PRESCRIP TRANSMIT VIA ERX SY CPT-4: G8553 12/05/2015 PRESCRIP TRANSMIT VIA ERX SY CPT-4: G8553 10/26/2015 URINALYSIS NONAUTO W/O SCOPE CPT-4: 07677 10/05/2015 URINE CULTURE/ COLONY COUNT CPT-4: 15633 10/05/2015 PRESCRIP TRANSMIT VIA ERX SY CPT-4: G8553 10/05/2015 MD SERVICE REQUIRED FOR PMD CPT-4: G0372 09/15/2015 PRESCRIP TRANSMIT VIA ERX SY CPT-4: G8553 09/15/2015 SPECIAL REPORTS OR FORMS CPT-4: 58918 08/25/2015 PRESCRIP TRANSMIT VIA ERX SY CPT-4: G8553 07/05/2015 URINALYSIS NONAUTO W/O SCOPE CPT-4: 34302 03/30/2015 ASSAY, GLUCOSE, BLOOD QUANT CPT-4: 90921 03/30/2015 URINE CULTURE/ COLONY COUNT CPT-4: 05193 03/30/2015 PRESCRIP TRANSMIT VIA ERX SY CPT-4: G8553 03/30/2015 PRESCRIP TRANSMIT VIA ERX SY CPT-4: G8553 02/03/2015 FLU VACC PRSV FREE INC ANTIG 65 AND OLDER CPT-4: 22614 12/29/2014 ADMIN INFLUENZA VIRUS VAC CPT-4: G0008 12/29/2014 PRESCRIP TRANSMIT VIA ERX SY CPT-4: G8553 12/29/2014 PRESCRIP TRANSMIT VIA ERX SY CPT-4: G8553 09/02/2014 PROTEIN/CREAT URINE WITH RATIO CPT-4: 61905|[id number] 5 MICROALBUMIN QUANTITATIVE CPT-4: 85941 04/01/2014 PRESCRIP TRANSMIT VIA ERX SY CPT-4: G8553 03/16/2014 PRESCRIP TRANSMIT VIA ERX SY CPT-4: G8553 03/09/2014 THER/PROPH/DIAG INJ SC/IM CPT-4: 64331 03/01/2014 TRIAMCINOLONE ACET INJ NOS CPT-4: J3301 03/01/2014 PRESCRIP TRANSMIT VIA ERX SY CPT-4: G8553 02/09/2014 URINE CULTURE/ COLONY COUNT CPT-4: 52215 10/30/2013 URINALYSIS NONAUTO W/O SCOPE CPT-4: 42886 10/21/2013 URINE CULTURE/ COLONY COUNT CPT-4: 90566 10/21/2013 DESTRUCT PREMALG LESION (Cryosurgery) CPT-4: 81574 PRESCRIP TRANSMIT VIA ERX SY CPT-4: G8553 10/05/2013 URINALYSIS NONAUTO W/O SCOPE CPT-4: 28787 08/04/2013 URINE CULTURE/ COLONY COUNT CPT-4: 51229 08/04/2013 PRESCRIP TRANSMIT VIA ERX SY CPT-4: G8553 08/04/2013 THER/PROPH/DIAG INJ SC/IM CPT-4: 92596 07/13/2013 TRIAMCINOLONE ACET INJ NOS CPT-4: J3301 07/13/2013 PRESCRIP TRANSMIT VIA ERX SY CPT-4: G8553 05/27/2013 URINALYSIS NONAUTO W/O SCOPE CPT-4: 26431 05/25/2013 URINE CULTURE/ COLONY COUNT CPT-4: 05599 05/25/2013 THER/PROPH/DIAG INJ SC/IM CPT-4: 60121 05/04/2013 VITAMIN B12 INJECTION CPT-4: J3420 05/04/2013 THER/PROPH/DIAG INJ SC/IM CPT-4: 87903 04/17/2013 VITAMIN B12 INJECTION CPT-4: J3420 04/17/2013 THER/PROPH/DIAG INJ SC/IM CPT-4: 17348 04/17/2013 METHYLPREDNISOLONE 40 MG INJ CPT-4: J1030 04/17/2013 TRIAMCINOLONE ACET INJ NOS CPT-4: J3301 04/17/2013 URINALYSIS NONAUTO W/O SCOPE CPT-4: 51111 04/06/2013 URINE CULTURE/ COLONY COUNT CPT-4: 28771 04/06/2013 PRESCRIP TRANSMIT VIA ERX SY CPT-4: G8553 04/06/2013 KETOROLAC TROMETHAMINE INJ CPT-4: J1885 06/25/2012 PROMETHAZINE HCL INJECTION CPT-4: J2550 06/25/2012 THER/PROPH/DIAG INJ SC/IM CPT-4: 10979 06/25/2012 THER/PROPH/DIAG INJ SC/IM CPT-4: 00415 06/24/2012 METHYLPREDNISOLONE 40 MG INJ CPT-4: J1030 06/24/2012 TRIAMCINOLONE ACET INJ NOS CPT-4: J3301 06/24/2012 URINE CULTURE/ COLONY COUNT CPT-4: 13001 06/24/2012 THER/PROPH/DIAG INJ SC/IM CPT-4: 45406 05/20/2012 KETOROLAC TROMETHAMINE INJ CPT-4: J1885 05/20/2012 THER/PROPH/DIAG INJ SC/IM CPT-4: 02943 05/20/2012 PROMETHAZINE HCL INJECTION CPT-4: J2550 05/20/2012 DRAIN/INJECT JOINT/BURSA CPT-4: 70544 02/13/2012 METHYLPREDNISOLONE 40 MG INJ CPT-4: J1030 02/13/2012 TRIAMCINOLONE ACET INJ NOS CPT-4: J3301 02/13/2012 THER/PROPH/DIAG INJ SC/IM CPT-4: 31420 11/14/2011 METHYLPREDNISOLONE 40 MG INJ CPT-4: J1030 11/14/2011 TRIAMCINOLONE ACET INJ NOS CPT-4: J3301 11/14/2011 THER/PROPH/DIAG INJ SC/IM CPT-4: 62654 09/12/2011 KETOROLAC TROMETHAMINE INJ CPT-4: J1885 09/12/2011 THER/PROPH/DIAG INJ SC/IM CPT-4: 10527 08/09/2011 METHYLPREDNISOLONE 40 MG INJ CPT-4: J1030 08/09/2011 TRIAMCINOLONE ACET INJ NOS CPT-4: J3301 08/09/2011 URINE CULTURE/ COLONY COUNT CPT-4: 31110 07/03/2011 URINE CULTURE/ COLONY COUNT CPT-4: 80794 06/04/2011 THER/PROPH/DIAG INJ SC/IM CPT-4: 64211 05/03/2011 METHYLPREDNISOLONE 40 MG INJ CPT-4: J1030 05/03/2011 TRIAMCINOLONE ACET INJ NOS CPT-4: J3301 05/03/2011 URINALYSIS NONAUTO W/O SCOPE CPT-4: 80811 01/24/2011 URINE CULTURE/ COLONY COUNT CPT-4: 99189 01/24/2011 FLUZONE, 5ML (Medicare) CPT-4: Q2038 01/02/2011 ADMIN INFLUENZA VIRUS VAC CPT-4: G0008 01/02/2011 ASSAY, GLUCOSE, BLOOD QUANT CPT-4: 25606 12/07/2010 URINE CULTURE/ COLONY COUNT CPT-4: 89064 11/02/2010 THER/PROPH/DIAG INJ SC/IM CPT-4: 84446 10/18/2010 METHYLPREDNISOLONE 40 MG INJ CPT-4: J1030 10/18/2010 TRIAMCINOLONE ACET INJ NOS CPT-4: J3301 10/18/2010 TRIAMCINOLONE ACET INJ NOS CPT-4: J3301 05/11/2010 METHYLPREDNISOLONE 40 MG INJ CPT-4: J1030 05/11/2010 THER/PROPH/DIAG INJ SC/IM CPT-4: 88262 05/11/2010 TRIAMCINOLONE ACET INJ NOS CPT-4: J3301 02/09/2010 METHYLPREDNISOLONE 40 MG INJ CPT-4: J1030 02/09/2010 THER/PROPH/DIAG INJ SC/IM CPT-4: 06756 02/09/2010 SERVICE REQUIRED FOR PMD CPT-4: G0372 02/09/2010 FLU VACCINE 3 YRS & > IM UP 64 CPT-4: 48633 0 PNEUMOCOCCAL VACC 23 RANDALL IM CPT-4: 18030 12/07/2009 ADMIN INFLUENZA VIRUS VAC CPT-4: G0008 12/07/2009 ADMIN PNEUMOCOCCAL VACCINE CPT-4: G0009 12/07/2009 TRIAMCINOLONE ACET INJ NOS CPT-4: J3301 05/26/2009 THER/PROPH/DIAG INJ SC/IM CPT-4: 26152 05/26/2009 METHYLPREDNISOLONE 80 MG INJ CPT-4: J1040 [...] 1: 114/72 Code: 8480-6 BMI: 37.8 Code: 97689-5 Heart Rate 1: 72 bpm Height: 5'3" [...] 1: 106/68 Code: 8480-6 BMI: 35.7 Code: 81278-7 Heart Rate 1: 72 bpm Height: 5'4" Respiratory Rate: 20 bpm SpO2: 98% Tempera ture: 36.7 (C) / 98.0 (F) Weight: 208 lbs 04/16/2018 Blood Pressure 1: 132/82 Code: 8480-6 BMI: 37.9 Code: 95338-6 Heart Rate 1: 72 bpm Height: 5'4" Respiratory Rate: 20 bpm SpO2: 96% Tempera ture: 37.1 (C) / 98.8 (F) Weight: 221 lbs 04/01/2018 Blood Pressure 1: 150/90 Code: 8480-6 Heart Rate 1: 72 bpm Respiratory Rate: 22 bpm SpO2: 95% Temperature: 36.4 (C) / 97.6 (F) We ight: 216 lbs 03/06/2018 Blood Pressure 1: 126/78 Code: 8480-6 BMI: 37.4 Code: 16822-8 Heart Rate 1: 68 bpm Height: 5'4" [...] ight: 222 lbs 12/25/2017 BMI: 37.8 Code: 69016-6 Heart Rate 1: 76 bpm Height: 5 '4" Respiratory Rate: 20 bpm SpO2: 96% Temperature: 37.3 (C) / 99.2 (F) Weight: 220 lbs 12/17/2017 Blood Pressure 1: 132/78 Code: 8480-6 BMI: 37.2 Code: 01149-1 Heart Rate 1: 88 bpm Height: 5'4" Respiratory Rate: 20 bpm SpO2: 96% Tempera ture: 37.3 (C) / 99.2 (F) Weight: 217 lbs 10/30/2017 Blood Pressure 1: 114/68 Code: 8480-6 BMI: 36.4 Code: 18371-4 Heart Rate 1: 72 bpm Height: 5'4" Respiratory Rate: 22 bpm SpO2: 96% Tempera ture: 36.8 (C) / 98.2 (F) Weight: 212 lbs 10/23/2017 Blood Pressure 1: 124/78 Code: 8480-6 Heart Rate 1: 72 bpm Respiratory Rate: 24 bpm SpO2: 94% Temperature: 36.6 (C) / 97.9 (F) We ight: 212 lbs 09/17/2017 Blood Pressure 1: 128/82 Code: 8480-6 BMI: 37.4 Code: 46319-3 Heart Rate 1: 72 bpm Height: 5'4" Respiratory Rate: 20 bpm SpO2: 96% Tempera ture: 37.0 (C) / 98.6 (F) Weight: 218 lbs 07/19/2017 Blood Pressure 1: 136/84 Code: 8480-6 BMI: 36.6 Code: 28154-3 Heart Rate 1: 88 bpm Height: 5'4" Respiratory Rate: 20 bpm SpO2: 97% Tempera ture: 36.7 (C) / 98.0 (F) Weight: 213 lbs 05/29/2017 Blood Pressure 1: 136/82 Code: 8480-6 BMI: 36.7 Code: 11447-4 Heart Rate 1: 72 bpm Height: 5'4" Respiratory Rate: 20 bpm SpO2: 97% Tempera ture: 36.9 (C) / 98.4 (F) Weight: 214 lbs 05/07/2017 Blood Pressure 1: 122/80 Code: 8480-6 BMI: 37.1 Code: 04625-2 Heart Rate 1: 80 bpm Height: 5'4" Respiratory Rate: 24 bpm SpO2: 96% Tempera ture: 36.1 (C) / 97.0 (F) Weight: 216 lbs 03/18/2017 BMI: 36.7 Code: 93182-2 Heart Rate 1: 80 bpm Height: 5 '4" Respiratory Rate: 22 bpm SpO2: 95% Temperature: 36.9 (C) / 98.4 (F) Weight: 214 lbs 02/27/2017 Blood Pressure 1: 146/94 Code: 8480-6 BMI: 36.6 Code: 65292-7 Heart Rate 1: 76 bpm Height: 5'4" Respiratory Rate: 22 bpm SpO2: 97% Tempera ture: 36.6 (C) / 97.9 (F) Weight: 213 lbs 02/22/2017 Blood Pressure 1: 126/90 Code: 8480-6 BMI: 36.4 Code: 27618-7 Heart Rate 1: 84 bpm Height: 5'4" Respiratory Rate: 22 bpm SpO2: 95% Tempera ture: 36.9 (C) / 98.4 (F) Weight: 212 lbs 01/23/2017 Blood Pressure 1: 146/82 Code: 8480-6 BMI: 37.6 Code: 15575-0 Heart Rate 1: 96 bpm Height: 5'4" Respiratory Rate: 20 bpm SpO2: 96% Tempera ture: 36.9 (C) / 98.4 (F) Weight: 219 lbs 12/20/2016 Blood Pressure 1: 126/70 Code: 8480-6 BMI: 37.2 Code: 23579-5 Heart Rate 1: 76 bpm Height: 5'4" Respiratory Rate: 22 bpm SpO2: 95% Tempera ture: 36.6 (C) / 97.8 (F) Weight: 217 lbs 10/08/2016 Blood Pressure 1: 128/82 Code: 8480-6 BMI: 36.9 Code: 26111-2 Heart Rate 1: 76 bpm Height: 5'4" Respiratory Rate: 20 bpm SpO2: 95% Tempera ture: 37.0 (C) / 98.6 (F) Weight: 215 lbs 09/19/2016 Blood Pressure 1: 144/78 Code: 8480-6 BMI: 37.8 Code: 73247-6 Heart Rate 1: 76 bpm Height: 5'4" Respiratory Rate: 22 bpm SpO2: 95% Tempera ture: 37.0 (C) / 98.6 (F) Weight: 220 lbs 08/20/2016 Blood Pressure 1: 140/86 Code: 8480-6 BMI: 37.4 Code: 25879-1 Heart Rate 1: 80 bpm Height: 5'4" Respiratory Rate: 20 bpm SpO2: 95% Tempera ture: 36.9 (C) / 98.4 (F) Weight: 218 lbs 06/19/2016 Blood Pressure 1: 124/78 Code: 8480-6 BMI: 37.8 Code: 57027-9 Heart Rate 1: 74 bpm Height: 5'4" Respiratory Rate: 24 bpm SpO2: 96% Tempera ture: 36.9 (C) / 98.4 (F) Weight: 220 lbs 06/04/2016 Blood Pressure 1: 12478 Code: 8480-6 BMI: 38.8 Code: 87054-3 Heart Rate 1: 72 bpm Height: 5'4" Respiratory Rate: 24 bpm SpO2: 95% Tempera ture: 36.8 (C) / 98.2 (F) Weight: 226 lbs 05/02/2016 Blood Pressure 1: 136/90 Code: 8480-6 BMI: 37.6 Code: 73649-2 Heart Rate 1: 72 bpm Height: 5'4" Respiratory Rate: 24 bpm SpO2: 96% Tempera ture: 36.9 (C) / 98.4 (F) Weight: 219 lbs 04/03/2016 Blood Pressure 1: 126/78 Code: 8480-6 BMI: 38.1 Code: 37491-5 Heart Rate 1: 72 bpm Height: 5'4" Respiratory Rate: 22 bpm SpO2: 94% Tempera ture: 36.9 (C) / 98.4 (F) Weight: 222 lbs 02/29/2016 Blood Pressure 1: 132/78 Code: 8480-6 Heart Rate 1: 78 bpm Height: Respiratory Rate: 24 bpm SpO2: 95% Temperature: 36.4 (C) / 97.6 (F) We ight: 02/02/2016 Blood Pressure 1: 124/78 Code: 8480-6 BMI: 37.6 Code: 43370-6 Heart Rate 1: 76 bpm Height: 5'4" Respiratory Rate: 20 bpm SpO2: 95% Tempera ture: 36.8 (C) / 98.2 (F) Weight: 219 lbs 01/05/2016 Blood Pressure 1: 126/70 Code: 8480-6 BMI: 37.1 Code: 56596-8 Heart Rate 1: 76 bpm Height: 5'4" Respiratory Rate: 20 bpm Temperature: 36 .6 (C) / 97.8 (F) Weight: 216 lbs 12/05/2015 Blood Pressure 1: 126/72 Code: 8480-6 BMI: 36.9 Code: 84709-1 Heart Rate 1: 92 bpm Height: 5'4" Respiratory Rate: 20 bpm Temperature: 36 .7 (C) / 98.1 (F) Weight: 215 lbs 10/26/2015 Blood Pressure 1: 142/80 Code: 8480-6 BMI: 36.4 Code: 63721-7 Heart Rate 1: 82 bpm Height: 5'4" Respiratory Rate: 24 bpm SpO2: 92% Tempera ture: 35.9 (C) / 96.7 (F) Weight: 212 lbs 10/05/2015 Blood Pressure 1: 136/82 Code: 8480-6 Heart Rate 1: 80 bpm Respiratory Rate: 18 bpm SpO2: 98% Temperature: 35.7 (C) / 96.3 (F) We ight: 214 lbs 09/15/2015 Blood Pressure 1: 116/80 Code: 8480-6 BMI: 34.6 Code: 10145-7 Heart Rate 1: 76 bpm Height: 5'6" Respiratory Rate: 20 bpm Temperature: 36 .6 (C) / 97.9 (F) Weight: 211 lbs 08/24/2015 Blood Pressure 1: 124/80 Code: 8480-6 BMI: 34.1 Code: 64994-3 Heart Rate 1: 68 bpm Height: 5'6" Respiratory Rate: 20 bpm Temperature: 36 .8 (C) / 98.3 (F) Weight: 208 lbs 07/05/2015 Blood Pressure 1: 114/78 Code: 8480-6 BMI: 33.9 Code: 05720-1 Heart Rate 1: 80 bpm Height: 5'6" Respiratory Rate: 20 bpm Temperature: 36 .6 (C) / 97.9 (F) Weight: 207 lbs 06/06/2015 Blood Pressure 1: 122/78 Code: 8480-6 BMI: 34.1 Code: 53790-1 Heart Rate 1: 76 bpm Height: 5'6" Respiratory Rate: 24 bpm SpO2: 96% Tempera ture: 36.4 (C) / 97.6 (F) Weight: 208 lbs 05/23/2015 Blood Pressure 1: 124/78 Code: 8480-6 Heart Rate 1: 76 bpm Respiratory Rate: 24 bpm SpO2: 93% Temperature: 36.8 (C) / 98.2 (F) We ight: 212 lbs 05/05/2015 Blood Pressure 1: 136/80 Code: 8480-6 BMI: 35.4 Code: 58438-4 Heart Rate 1: 76 bpm Height: 5'6" Respiratory Rate: 28 bpm Temperature: 37 .0 (C) / 98.6 (F) Weight: 216 lbs 03/30/2015 Blood Pressure 1: 132/86 Code: 8480-6 BMI: 35.2 Code: 79914-0 Heart Rate 1: 84 bpm Height: 5'6" Respiratory Rate: 24 bpm Temperature: 36 .7 (C) / 98.0 (F) Weight: 215 lbs 02/03/2015 Blood Pressure 1: 122/74 Code: 8480-6 BMI: 35.7 Code: 94330-9 Heart Rate 1: 84 bpm Height: 5'6" Respiratory Rate: 20 bpm Temperature: 36 .9 (C) / 98.5 (F) Weight: 218 lbs 12/29/2014 Blood Pressure 1: 132/80 Code: 8480-6 BMI: 35.1 Code: 72574-0 Heart Rate 1: 80 bpm Height: 5'6" Respiratory Rate: 20 bpm Temperature: 36 .6 (C) / 97.8 (F) Weight: 214 lbs 09/02/2014 Blood Pressure 1: 128/92 Code: 8480-6 BMI: 34.7 Code: 85104-7 Heart Rate 1: 84 bpm Height: 5'6" Respiratory Rate: 26 bpm Temperature: 36 .8 (C) / 98.2 (F) Weight: 212 lbs 08/25/2014 Blood Pressure 1: 124/80 Code: 8480-6 BMI: 34.7 Code: 83409-8 Heart Rate 1: 78 bpm Height: 5'6" Respiratory Rate: 22 bpm SpO2: 97% Tempera ture: 36.6 (C) / 97.8 (F) Weight: 212 lbs 04/01/2014 Blood Pressure 1: 142/84 Code: 8480-6 BMI: 34.4 Code: 97648-5 Heart Rate 1: 74 bpm Height: 5'5" Respiratory Rate: 20 bpm Temperature: 36 .4 (C) / 97.6 (F) Weight: 207 lbs 03/16/2014 Blood Pressure 1: 142/90 Code: 8480-6 BMI: 34.6 Code: 04048-0 Heart Rate 1: 76 bpm Height: 5'5" Respiratory Rate: 24 bpm Temperature: 36 .5 (C) / 97.7 (F) Weight: 208 lbs 03/09/2014 Blood Pressure 1: 116/70 Code: 8480-6 BMI: 35.3 Code: 72971-3 Heart Rate 1: 72 bpm Height: 5'5" [...] 1: 128/86 Code: 8480-6 BMI: 34.3 Code: 35542-3 Heart Rate 1: 84 bpm Height: 5'5" Respiratory Rate: 20 bpm Temperature: 36 .7 (C) / 98.0 (F) Weight: 206 lbs 12/23/2013 Blood Pressure 1: 122/70 Code: 8480-6 BMI: 34.3 Code: 56370-3 Heart Rate 1: 68 bpm Height: 5'5" Respiratory Rate: 20 bpm Temperature: 36 .8 (C) / 98.2 (F) Weight: 206 lbs 10/05/2013 Blood Pressure 1: 118/76 Code: 8480-6 BMI: 34.1 Code: 30202-6 Heart Rate 1: 68 bpm Height: 5'5" Respiratory Rate: 20 bpm SpO2: 98% Tempera ture: 36.6 (C) / 97.9 (F) Weight: 205 lbs 08/04/2013 Blood Pressure 1: 126/82 Code: 8480-6 BMI: 33.3 Code: 45730-7 Heart Rate 1: 76 bpm Height: 5'5" Respiratory Rate: 20 bpm Temperature: 36 .8 (C) / 98.2 (F) Weight: 200 lbs 07/03/2013 Blood Pressure 1: 124/82 Code: 8480-6 BMI: 33.3 Code: 37149-1 Heart Rate 1: 72 bpm Height: 5'5" Respiratory Rate: 22 bpm Temperature: 36 .1 (C) / 97.0 (F) Weight: 200 lbs 05/27/2013 Blood Pressure 1: 12682 Code: 8480-6 Heart Rate 1: 74 bpm Respiratory Rate: 20 bpm Temperature: 36.0 (C) / 96.8 (F) Weight: 199 lbs 04/06/2013 Blood Pressure 1: 118/80 Code: 8480-6 BMI: 35.2 Code: 66619-8 Heart Rate 1: 80 bpm Height: 5'4" Respiratory Rate: 20 bpm Temperature: 37 .4 (C) / 99.3 (F) Weight: 205 lbs 11/10/2012 Blood Pressure 1: 128/82 Code: 8480-6 Heart Rate 1: 84 bpm Respiratory Rate: 20 bpm Temperature: 36.7 (C) / 98.0 (F) Weight: 199 lbs 09/02/2012 Blood Pressure 1: 116/82 Code: 8480-6 BMI: 34.2 Code: 04108-0 Heart Rate 1: 88 bpm Height: 5'4" Respiratory Rate: 22 bpm Temperature: 36 .6 (C) / 97.8 (F) Weight: 199 lbs 08/04/2012 Blood Pressure 1: 128/74 Code: 8480-6 BMI: 34.0 Code: 78792-0 Heart Rate 1: 92 bpm Height: 5'4" Respiratory Rate: 20 bpm Temperature: 36 .4 (C) / 97.5 (F) Weight: 198 lbs 07/21/2012 Blood Pressure 1: 124/86 Code: 8480-6 Heart Rate 1: 116 bpm Respiratory Rate: 24 bpm Temperature: 36.8 (C) / 98.2 (F) 07/02/2012 Blood Pressure 1: 116/88 Code: 8480-6 BMI: 33.6 Code: 73095-3 Heart Rate 1: 76 bpm Height: 5'4" Respiratory Rate: 20 bpm Temperature: 36 .8 (C) / 98.3 (F) Weight: 196 lbs 06/24/2012 Blood Pressure 1: 124/80 Code: 8480-6 BMI: 34.3 Code: 81529-1 Heart Rate 1: 72 bpm Height: 5'4" SpO2: 96% Temperature: 36.3 (C) / 97.3 (F) Weight: 200 lbs 05/20/2012 Blood Pressure 1: 116/88 Code: 8480-6 BMI: 33.8 Code: 77060-1 Heart Rate 1: 80 bpm Height: 5'4" Respiratory Rate: 22 bpm Temperature: 36 .9 (C) / 98.4 (F) Weight: 197 lbs 05/08/2012 Blood Pressure 1: 128/86 Code: 8480-6 BMI: 33.8 Code: 96843-2 Heart Rate 1: 76 bpm Height: 5'4" Respiratory Rate: 26 bpm SpO2: 95% Tempera ture: 36.1 (C) / 97.0 (F) Weight: 197 lbs 04/22/2012 Blood Pressure 1: 106/64 Code: 8480-6 BMI: 33.8 Code: 08352-7 Heart Rate 1: 70 bpm Height: 5'4" Temperature: 36.1 (C) / 97.0 (F) Weight: 197 lbs 02/13/2012 Blood Pressure 1: 126/82 Code: 8480-6 BMI: 34.7 Code: 43646-1 Heart Rate 1: 64 bpm Height: 5'4" Respiratory Rate: 20 bpm Temperature: 36 .6 (C) / 97.8 (F) Weight: 202 lbs 01/28/2012 Blood Pressure 1: 116/80 Code: 8480-6 BMI: 34.7 Code: 38737-4 Heart Rate 1: 76 bpm Height: 5'4" Respiratory Rate: 20 bpm Temperature: 36 .8 (C) / 98.3 (F) Weight: 202 lbs 12/26/2011 Blood Pressure 1: 132/82 Code: 8480-6 BMI: 36.0 Code: 69936-1 Heart Rate 1: 68 bpm Height: 5'4" Respiratory Rate: 22 bpm Temperature: 36 .7 (C) / 98.0 (F) Weight: 210 lbs 11/14/2011 Blood Pressure 1: 124/80 Code: 8480-6 BMI: 36.4 Code: 13678-8 Heart Rate 1: 76 bpm Height: 5'4" Respiratory Rate: 20 bpm Temperature: 36 .8 (C) / 98.2 (F) Weight: 212 lbs 09/12/2011 Blood Pressure 1: 108/74 Code: 8480-6 BMI: 37.1 Code: 61627-6 Heart Rate 1: 72 bpm Height: 5'4" Respiratory Rate: 20 bpm Temperature: 37 .0 (C) / 98.6 (F) Weight: 216 lbs 08/15/2011 Blood Pressure 1: 122/80 Code: 8480-6 BMI: 36.9 Code: 73871-6 Heart Rate 1: 76 bpm Height: 5'4" Respiratory Rate: 20 bpm Temperature: 36 .2 (C) / 97.1 (F) Weight: 215 lbs 08/09/2011 Blood Pressure 1: 112/78 Code: 8480-6 BMI: 36.9 Code: 20998-7 Heart Rate 1: 68 bpm Height: 5'4" Respiratory Rate: 20 bpm Temperature: 36 .7 (C) / 98.0 (F) Weight: 215 lbs 07/03/2011 Blood Pressure 1: 140/94 Code: 8480-6 BMI: 36.2 Code: 23530-0 Heart Rate 1: 68 bpm Height: 5'4" Temperature: 36.0 (C) / 96.8 (F) Weight: 211 lbs 06/04/2011 Blood Pressure 1: 124/70 Code: 8480-6 BMI: 36.7 Code: 91738-9 Heart Rate 1: 68 bpm Height: 5'4" Respiratory Rate: 20 bpm Temperature: 36 .6 (C) / 97.9 (F) Weight: 214 lbs 05/03/2011 Blood Pressure 1: 130/76 Code: 8480-6 BMI: 36.4 Code: 70602-7 Heart Rate 1: 74 bpm Height: 5'5" Temperature: 36.2 (C) / 97.2 (F) Weight: 219 lbs 04/05/2011 Blood Pressure 1: 124/86 Code: 8480-6 BMI: 35.9 Code: 05864-0 Heart Rate 1: 76 bpm Height: 5'6" Respiratory Rate: 22 bpm Temperature: 36 .3 (C) / 97.3 (F) Weight: 219 lbs 03/08/2011 Blood Pressure 1: 112/78 Code: 8480-6 BMI: 35.1 Code: 36679-8 Heart Rate 1: 80 bpm Height: 5'6" Respiratory Rate: 26 bpm Temperature: 36 .9 (C) / 98.4 (F) Weight: 214 lbs 01/24/2011 Blood Pressure 1: 110/82 Code: 8480-6 BMI: 35.6 Code: 01379-8 Heart Rate 1: 80 bpm Height: 5'6" Temperature: 36.1 (C) / 97.0 (F) Weight: 217 lbs 01/02/2011 Blood Pressure 1: 106/72 Code: 8480-6 BMI: 35.6 Code: 42767-4 Heart Rate 1: 76 bpm Height: 5'6" [...] 1: 120/74 Code: 8480-6 BMI: 35.9 Code: 76480-9 Heart Rate 1: 72 bpm Height: 5'5" Temperature: 36.3 (C) / 97.4 (F) Weight: 216 lbs 09/19/2010 Blood Pressure 1: 124/80 Code: 8480-6 BMI: 35.4 Code: 74833-5 Heart Rate 1: 76 bpm Height: 5'5" [...] 1: 122/78 Code: 8480-6 BMI: 37.4 Code: 52377-5 Heart Rate 1: 84 bpm Height: 5'5" [...] 10/30/2017 follow up 10/23/[address] [facility] Annual Checkup 09/17/2017 Wellness Physical fo [...] follow up 10/26/2015 ER visit from at [facility] for COPD Exacerbation follow up 10/05/2015 ER Visit gait abnormality 09/15/2015 Patient requesting kelly pineda paperwork to be filled out disturbances of thinking 08/24/2015 follow up 07/05/2015 4wk fwup follow up 06/06/2015 [facility] cough 05/23/2015 follow up 05/05/2015 dyspnea 03/30/2015 [facility] needs new orde r for O2 abdominal pain 02/03/2015 cyst 12/29/2014 vs abscess follow up 09/02/2014 [facility] fw headache 08/25/2014 facial drooping follow up 04/01/2014 ER follow up 03/16/2014 1wk fwup follow up 03/09/2014 1mo fwup and bronchi tis fwup follow up 03/03/2014 2 day follow up 03/01/2014 ER follow up 02/09/2014 [facility] gastroesophageal reflux 12/23/2013 painful urination 10/30/2013 [...] up 08/04/2012 2wk fwup follow up 07/21/2012 [facility] an sore throat 07/02/2012 headache 06/25/2012 [...] 1 month f/u follow up 12/07/2009 from [facility], done with PT--finished about 2wks ago [...] swelling[ICD10: M79.89] Diagnosis: Dyspnea[ICD10: R06.00] [facility] CPT-4: 9921 3 06/24/2019 ([id number]) OFFICE/OUTPATIENT VISIT EST Diagnosis: Acute bronchitis[ICD10: J20.9] Diagnosis: Colitis[ICD10: K52.9] Belia CORNELLLINE BushraMayda ANUSHKA [employer] CPT-4: 72157 06/16/2019 ([id number]) OFFICE/OUTPATIENT VISIT EST Diagnosis: Diarrhea[ICD10: R19.7] Diagnosis: Abdominal bloating[ICD10: R14.0] [facility] CPT- 4: 62522 06/08/2019 ([id number]) OFFICE/OUTPATIENT VISIT EST Diagnosis: Acute febrile illness[ICD10: R50.9] Diagnosis: Colitis[ICD10: K52.9] [facility] CPT-4: 58915 05/26/2019 ([id number]) OFFICE/OUTPATIENT VISIT EST Diagnosis: Chronic obstructive pulmonary disease, unspecified[ICD10: J44.9] Diagnosis: Pulmonary fibrosis[ICD10: J84.10] Diagnosis: Intermittent stridor[ICD10: R06.1] Diagnosis: Muscle weakness[ICD10: M62.81] Belia CORNELLLINE Bushra Mayda [facility]ACH[facility] [employer] CPT-4: 98731 05/13/2019 ([id number]) OFFICE/OUTPATIENT VISIT EST Diagnosis: Stridor[ICD10: R06.1] Diagnosis: COUGH[ICD10: R05] Beliahanna CORNELLLINE BushraMayda ANUSHKA [employer] [facility] CPT-4: 60975 05/06/2019 ([id number]) OFFICE/OUTPATIENT VISIT EST Diagnosis: Stridor[ICD10: R06.1] Diagnosis: Muscle, jerky movements (uncontrolled)[ICD10: G25.5] Belia REID [employer] [facility] CPT-4: 54820 04/29/2019 ([id number]) OFFICE/OUTPATIENT VISIT EST Diagnosis: Upper respiratory infection[ICD10: J06.9] Diagnosis: Flank pain[ICD10: R10.9] Diagnosis: Weight gain[ICD10: R63.5] Pattie AMBRIZ [employer] [facility] CPT-4: 58250 04/16/2019 ([id number]) OFFICE/OUTPATIENT VISIT EST Diagnosis: Generalized pruritus[ICD10: L29.9] Belia BASS MARIE Yuridia REID [employer] [facility] CPT-4: 65294 04/08/2019 ([id number]) OFFICE/OUTPATIENT VISIT EST Diagnosis: Acute bursitis of left shoulder[ICD10: M75.52] Diagnosis: Cervicalgia[ICD10: M54.2] Diagnosis: Chest wall pain[ICD10: R07.89] Belia SMITH [employer] [facility] CPT-4: 51739 01/22/2019 ([id number]) OFFICE/OUTPATIENT VISIT EST Diagnosis: Abdominal pain[ICD10: R10.9] Diagnosis: Pyelonephritis[ICD10: N12] Pattie DOMINGUEZ [employer] CPT-4: 66244 01/07/2019 ([id number]) OFFICE/OUTPATIENT VISIT EST Diagnosis: Low back pain[ICD10: M54.5] Diagnosis: Left lumbar radiculopathy[ICD10: M54.16] Diagnosis: Left flank pain[ICD10: R10.9] Diagnosis: Left lower quadrant pain[ICD10: R10.32] Diagnosis: FLU VACCINE[ICD10: Z23] Belia FREDERICK [employer] CPT-4: 76453 12/24/2018 ([id number]) OFFICE/OUTPATIENT VISIT EST Diagnosis: Migraine, unspecified, not intractable, without status migrainosus[ICD10: G43.909] Diagnosis: Fibromyalgia[ICD10: M79.7] Belia Orenilson DOMINGUEZ [facility] CPT-4: 95487 11/20/2018 ([id number]) OFFICE/OUTPATIENT VISIT EST Diagnosis: Migraine, unspecified, intractable, without status migrainosus[ICD10: G43.919] Diagnosis: Acute sinusitis, unspecified[ICD10: J01.90] Pattie REID DO [facility] CPT-4: 31507 11/04/2018 ([id number]) OFFICE/OUTPATIENT VISIT EST Diagnosis: Pain in left wrist[ICD10: M25.532] Diagnosis: Other dorsalgia[ICD10: M54.89] Pattie REID DO [facility] CPT-4: 17482 09/08/2018 ([id number]) OFFICE/OUTPATIENT VISIT EST Diagnosis: Acute stress reaction[ICD10: F43.0] Diagnosis: Pruritus, unspecified[ICD10: L29.9] 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, 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] Belia REID DO [facility] CPT-4: 92318 08/20/2018 ([id number]) OFFICE/OUTPATIENT VISIT EST Diagnosis: Hypotension due to drugs[ICD10: I95.2] Diagnosis: Paroxysmal atrial fibrillation[ICD10: I48.0] Diagnosis: Localized edema[ICD10: R60.0] Belia REID DO [facility] CPT-4: 13372 06/19/2018 ([id number]) OFFICE/OUTPATIENT VISIT EST Diagnosis: Generalized hyperhidrosis[ICD10: R61] Diagnosis: Essential (primary) hypertension[ICD10: I10] Diagnosis: Supraventricular tachycardia[ICD10: I47.1] Belia REID DO [facility] CPT-4: 79235 06/09/2018 ([id number]) OFFICE/OUTPATIENT VISIT EST Diagnosis: Stridor[ICD10: R06.1] Diagnosis: Dependence on supplemental oxygen[ICD10: Z99.81] Diagnosis: Weakness[ICD10: R53.1] Diagnosis: Supraventricular tachycardia[ICD10: I47.1] Belia REID DO [facility] CPT-4: 04617 05/21/2018 ([id number]) OFFICE/OUTPATIENT VISIT EST Diagnosis: Cervical disc disorder with radiculopathy, unspecified cervical region[ICD10: M50.10] Belia REID DO [facility] CPT-4: 59960 04/16/2018 ([id number]) OFFICE/OUTPATIENT VISIT EST Diagnosis: Migraine, unspecified, intractable, without status migrainosus[ICD10: G43.919] Diagnosis: Fibromyalgia[ICD10: M79.7] Pattie DOMINGUEZ [facility] CPT-4: 10856 04/01/2018 ([id number]) NURSE/OUTPATIENT VISIT EST Diagnosis: Hematuria, unspecified[ICD10: R31.9] Diagnosis: Dysuria[ICD10: R30.0] Belia REID [employer] [facility] CPT-4: 74388 03/17/2018 ([id number]) OFFICE/OUTPATIENT VISIT EST Diagnosis: Erythema intertrigo[ICD10: L30.4] Diagnosis: Chronic obstructive pulmonary disease with (acute) exacerbation[ICD10: J44.1] Diagnosis: Type 2 diabetes mellitus with hyperglycemia[ICD10: E11.65] Belia REID [employer] [facility] CPT-4: 32088 03/06/2018 ([id number]) OFFICE/OUTPATIENT VISIT EST Diagnosis: Cervicalgia[ICD10: M54.2] Pattie AMBRIZ [employer] [facility] CPT-4: 05216 02/05/2018 ([id number]) OFFICE/OUTPATIENT VISIT EST Diagnosis: Candidiasis of skin and nail[ICD10: B37.2] Diagnosis: Cervicalgia[ICD10: M54.2] Pattie CAINR [employer] [facility] CPT-4: 94716 01/20/2018 ([id number]) OFFICE/OUTPATIENT VISIT EST Diagnosis: Pain in thoracic spine[ICD10: M54.6] Diagnosis: Radiculopathy, thoracic region[ICD10: M54.14] Belia REID [employer] [facility] CPT-4: 77735 12/25/2017 ([id number]) OFFICE/OUTPATIENT VISIT EST Diagnosis: Pain in thoracic spine[ICD10: M54.6] Diagnosis: Other muscle spasm[ICD10: M62.838] Diagnosis: FLU VACCINE[ICD10: Z23] Diagnosis: PNEUMOCOCCAL VACCINE[ICD10: Z23] Belia REID DO [facility] CPT-4: 78709 12/17/2017 ([id number]) OFFICE/OUTPATIENT VISIT EST Diagnosis: Chronic obstructive pulmonary disease with (acute) exacerbation[ICD10: J44.1] Belia REID DO [facility] CPT- 4: 88529 10/30/2017 ([id number]) OFFICE/OUTPATIENT VISIT EST Diagnosis: Chronic obstructive pulmonary disease with acute lower respiratory infection[ICD10: J44.0] Diagnosis: Mild intermittent asthma with (acute) exacerbation[ICD10: J45.21] Belia REID [employer] [facility] CPT-4: 56478 10/23/2017 ([id number]) NURSE/OUTPATIENT VISIT EST Diagnosis: Migraine, unspecified, not intractable, without status migrainosus[ICD10: G43.909] Belia REID Lastline [facility] CPT - 4: 21148 08/26/2017 ([id number]) OFFICE/OUTPATIENT VISIT EST Diagnosis: Urinary tract infection, site not specified[ICD10: N39.0] Diagnosis: Encounter for screening for osteoporosis[ICD10: Z13.820] Diagnosis: Encounter for screening mammogram for malignant neoplasm of breast[ICD10: Z12.31] Diagnosis: Acute bronchitis, unspecified[ICD10: J20.9] Pattie REID DO [facility] CPT-4: 40870 07/19/2017 ([id number]) OFFICE/OUTPATIENT VISIT EST Diagnosis: Rash and other nonspecific skin eruption[ICD10: R21] Pattie REID DO [facility] CPT-4: 90885 05/29/2017 ([id number]) OFFICE/OUTPATIENT VISIT EST Diagnosis: Diarrhea, unspecified[ICD10: R19.7] Diagnosis: Tinea corporis[ICD10: B35.4] Diagnosis: Tinea cruris[ICD10: B35.6] Diagnosis: Migraine, unspecified, not intractable, without status migrainosus[ICD10: G43.909] Belia REID [facility] CPT - 4: 47689 05/07/2017 ([id number]) OFFICE/OUTPATIENT VISIT EST Diagnosis: Stridor[ICD10: R06.1] Diagnosis: Chronic obstructive pulmonary disease with (acute) exacerbation[ICD10: J44.1] Belia REID DO [facility] CPT- 4: 85978 03/18/2017 ([id number]) OFFICE/OUTPATIENT VISIT EST Diagnosis: Type 2 diabetes mellitus with hyperglycemia[ICD10: E11.65] Belia REID DO [facility] CPT-4: 08958 02/27/2017 OFFICE/OUTPATIENT VISIT EST Diagnosis: Type 2 diabetes mellitus with hyperglycemia[ICD10: E11.65] Pattie REID Lastline [facility] CPT-4: 64189 02/22/2017 ([id number]) OFFICE/OUTPATIENT VISIT EST Diagnosis: Urinary tract infection, site not specified[ICD10: N39.0] Diagnosis: Pneumonia, unspecified organism[ICD10: J18.9] Diagnosis: Type 2 diabetes mellitus with hyperglycemia[ICD10: E11.65] Belia REID [facility] CPT-4: 80984 01/23/2017 ([id number]) OFFICE/OUTPATIENT VISIT EST Diagnosis: Type 2 diabetes mellitus with hyperglycemia[ICD10: E11.65] Diagnosis: Localized edema[ICD10: R60.0] Diagnosis: PNEUMOCOCCAL VACCINE[ICD10: Z23] Diagnosis: FLU VACCINE[ICD10: Z23] Belia FREDERICK [facility] CPT-4: 10229 12/20/2016 OFFICE/OUTPATIENT VISIT EST Diagnosis: Pain in thoracic spine[ICD10: M54.6] Diagnosis: Low back pain[ICD10: M54.5] Diagnosis: Cervicalgia[ICD10: M54.2] Diagnosis: Cough[ICD10: R05] Celeste Ferreira BELIA REID Lastline [facility] CPT-4: 50142 10/08/2016 ([id number]) OFFICE/OUTPATIENT VISIT EST Diagnosis: Primary insomnia[ICD10: F51.01] Diagnosis: Migraine, unspecified, not intractable, without status migrainosus[ICD10: G43.909] Diagnosis: Type 2 diabetes mellitus with hyperglycemia[ICD10: E11.65] Belia REID DO [facility] CPT-4: 63323 09/19/2016 ([id number]) OFFICE/OUTPATIENT VISIT EST Diagnosis: Migraine, unspecified, not intractable, without status migrainosus[ICD10: G43.909] Diagnosis: Generalized abdominal pain[ICD10: R10.84] Diagnosis: Cough[ICD10: R05] Belia REID DO [facility] CPT-4: 83930 08/20/2016 ([id number]) OFFICE/OUTPATIENT VISIT EST Diagnosis: Chronic obstructive pulmonary disease, unspecified[ICD10: J44.9] Diagnosis: Stridor[ICD10: R06.1] Belia REID DO [facility] CPT-4: 23616 06/19/2016 ([id number]) OFFICE/OUTPATIENT VISIT EST Diagnosis: Chronic obstructive pulmonary disease, unspecified[ICD10: J44.9] Diagnosis: Personal history of urinary (tract) infections[ICD10: Z87.440] Belia REID DO [facility] CPT-4: 01096 06/04/2016 ([id number]) OFFICE/OUTPATIENT VISIT EST Diagnosis: Stridor[ICD10: R06.1] Diagnosis: Chronic obstructive pulmonary disease with acute lower respiratory infection[ICD10: J44.0] Diagnosis: Other specified diseases of intestine[ICD10: K63.89] Diagnosis: Cystitis, unspecified without hematuria[ICD10: N30.90] Belia REID DO [facility] CPT-4: 63060 05/02/2016 ([id number]) OFFICE/OUTPATIENT VISIT EST Diagnosis: Fibromyalgia[ICD10: M79.7] Diagnosis: Urinary tract infection, site not specified[ICD10: N39.0] Belia REID DO [facility] CPT-4: 15527 04/03/2016 ([id number]) OFFICE/OUTPATIENT VISIT EST Diagnosis: Unspecified asthma, uncomplicated[ICD10: J45.909] Diagnosis: Cough[ICD10: R05] Lidia HSUQUELINE BushraMayda ANUSHKA Lastline [facility] T-4: 42607 02/29/2016 ([id number]) OFFICE/OUTPATIENT VISIT EST Diagnosis: Migraine, unspecified, intractable, without status migrainosus[ICD10: G43.919] Diagnosis: Urinary tract infection, site not specified[ICD10: N39.0] Belia Anushka HSUQUELINE BushraMayda ANUSHKA Lastline [facility] CPT-4: 28294 02/02/2016 ([id number]) OFFICE/OUTPATIENT VISIT EST Diagnosis: Urinary tract infection, site not specified[ICD10: N39.0] Diagnosis: Unspecified abdominal pain[ICD10: R10.9] Diagnosis: Pain in thoracic spine[ICD10: M54.6] Diagnosis: Type 2 diabetes mellitus with diabetic neuropathic arthropathy[ICD10: E11.610] Belia Anushka HSUQUELINE BushraMayda ANUSHKA Lastline [facility] CPT-4: 37244 12/05/2015 ([id number]) OFFICE/OUTPATIENT VISIT EST Diagnosis: Chronic obstructive pulmonary disease with (acute) exacerbation[ICD10: J44.1] Diagnosis: Migraine, unspecified, not intractable, without status migrainosus[ICD10: G43.909] Lidia HSUQUELINE BushraMayda ANUSHKA Lastline [facility] CPT -4: 50991 10/26/2015 ([id number]) OFFICE/OUTPATIENT VISIT EST Diagnosis: Hematuria, unspecified[ICD10: R31.9] Diagnosis: Urinary tract infection, site not specified[ICD10: N39.0] Lidia HSUQUELINE BushraMayda ANUSHKA Lastline [facility] CPT-4: 10066 10/05/2015 OFFICE/OUTPATIENT VISIT EST Diagnosis: Chronic obstructive pulmonary disease, unspecified[ICD10: J44.9] Diagnosis: Muscle weakness (generalized)[ICD10: M62.81] Diagnosis: Polyneuropathy, unspecified[ICD10: G62.9] Diagnosis: Other intervertebral disc degeneration, 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] Diagnosis: Fibromyalgia[ICD10: M79.7] Belia Zacharyisabellaotoniel BELIA Yuridia DAILEYER Lastline [facility] CPT-4: 74130 09/15/2015 ([id number]) OFFICE/OUTPATIENT VISIT EST Diagnosis: Disorientation, unspecified[ICD10: R41.0] Diagnosis: Headache[ICD10: R51] Diagnosis: Paresthesia of skin[ICD10: R20.2] Lidia REID DO [facility] CPT-4: 35663 08/24/2015 ([id number]) OFFICE/OUTPATIENT VISIT EST Diagnosis: Type 2 diabetes mellitus with hyperglycemia[ICD10: E11.65] Diagnosis: Chronic obstructive pulmonary disease with acute lower respiratory infection[ICD10: J44.0] Belia REID DO [facility] CPT-4: 50716 07/05/2015 ([id number]) OFFICE/OUTPATIENT VISIT EST Diagnosis: Mild intermittent asthma with (acute) exacerbation[ICD10: J45.21] Diagnosis: Chronic obstructive pulmonary disease, unspecified[ICD10: J44.9] Belia REID [facility] CPT-4: 20264 06/06/2015 ([id number]) OFFICE/OUTPATIENT VISIT EST Diagnosis: Chronic obstructive pulmonary disease with (acute) exacerbation[ICD10: J44.1] Lidia REID [facility] CPT- 4: 54856 05/23/2015 ([id number]) OFFICE/OUTPATIENT VISIT EST Diagnosis: Type 2 diabetes mellitus with hyperglycemia[ICD10: E11.65] Diagnosis: Functional dyspepsia[ICD10: K30] Belia REID DO [facility] CPT-4: 87539 05/05/2015 ([id number]) OFFICE/OUTPATIENT VISIT EST Diagnosis: Type 2 diabetes mellitus with hyperglycemia[ICD10: E11.65] Diagnosis: Glycosuria[ICD10: R81] Diagnosis: Urinary tract infection, site not specified[ICD10: N39.0] Belia REID DO [facility] CPT-4: 91495 03/30/2015 ([id number]) OFFICE/OUTPATIENT VISIT EST Diagnosis: Generalized abdominal pain[ICD10: R10.84] Diagnosis: Diarrhea, unspecified[ICD10: R19.7] Diagnosis: Urinary tract infection, site not specified[ICD10: N39.0] Diagnosis: Gastro-esophageal reflux disease without esophagitis[ICD10: K21.9] Belia REID [facility] CPT-4: 34449 02/03/2015 ([id number]) OFFICE/OUTPATIENT VISIT EST Diagnosis: Other specified noninflammatory disorders of vagina[ICD10: N89.8] Diagnosis: Follicular disorder, unspecified[ICD10: L73.9] Diagnosis: Functional dyspepsia[ICD10: K30] Diagnosis: FLU VACCINE[ICD10: Z23] Belia [facility] CPT-4: 24463 12/29/2014 ([id number]) OFFICE/OUTPATIENT VISIT EST 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] Diagnosis: RESTLESS LEGS SYNDROME[ICD9: 333.94] Diagnosis: MIGRAINE NOS/NOT INTRCBL[ICD9: 346.90] Belia [facility] CPT-4: 50010 09/02/2014 ([id number]) OFFICE/OUTPATIENT VISIT EST Diagnosis: Cervical radiculopathy[ICD9: 723.4] Diagnosis: Cervicalgia[ICD9: 723.1] Diagnosis: Degenerative disc disease, cervical[ICD9: 722.4] 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I[ICD9: 250.00] Belia [facility] CPT-4: 56923 04/01/2014 OFFICE/OUTPATIENT VISIT EST Diagnosis: Reactive airway disease[ICD9: 493.90] Belia HSUPAUL LUBNA BushraMayda [facility] CPT-4: 62263 03/16/2014 ([id number]) OFFICE/OUTPATIENT VISIT EST Diagnosis: BRONCHITIS, ACUTE[ICD9: 466.0] Diagnosis: Reactive airway disease[ICD9: 493.90] Beliahanna Reid MINAL LUBNA BushraMayda [facility] CPT-4: 29121 03/09/2014 OFFICE/OUTPATIENT VISIT EST Diagnosis: BRONCHITIS, ACUTE[ICD9: 466.0] Diagnosis: WHEEZING[ICD9: 786.07] Huong Osborne BELIA BushraMayda [facility] CPT-4: 48772 03/03/2014 OFFICE/OUTPATIENT VISIT EST Diagnosis: BRONCHITIS, ACUTE[ICD9: 466.0] Diagnosis: WHEEZING[ICD9: 786.07] Huong Peguero [facility] CPT-4: 79571 03/01/2014 ([id number]) OFFICE/OUTPATIENT VISIT EST Diagnosis: GERD[ICD9: 530.81] Diagnosis: ARTHRALGIA-MULTIPLE SITES[ICD9: 719.49] Diagnosis: LUMB/LUMBOSAC DISC DEGEN[ICD9: 722.52] Diagnosis: - I - FIBROMYALGIA[ICD9: 729.1] Belia Humphriesisabellaotoniel TomlinsonMayda ANUSHKA [facility] CPT-4: 20401 02/09/2014 ([id number]) OFFICE/OUTPATIENT VISIT EST Diagnosis: Peptic ulcer disease[ICD9: 533.90] Diagnosis: RESTLESS LEGS SYNDROME[ICD9: 333.94] Diagnosis: Neuropathy[ICD9: 355.9] Belia Humphriesisabellaotoniel CORNELLBELIA Yuridia FREDERICK [facility] CPT-4: 05500 12/23/2013 ([id number]) OFFICE/OUTPATIENT VISIT EST Diagnosis: URINARY TRACT INFECTION[ICD9: 599.0] Belia Humphriesisabellaotoniel CORNELL CLAYTON BushraMayda ANUSHKA [facility] CPT-4: 63524 10/30/2013 ([id number]) OFFICE/OUTPATIENT VISIT EST Diagnosis: Flank pain[ICD9: 789.00] Belia Humphriesisabellaotoniel CORNELLBELIA BushraMayda KIESHA POOLE [facility] CPT-4: 61915 10/21/2013 ([id number]) OFFICE/OUTPATIENT VISIT EST Diagnosis: INFLAMED SEBORR KERATOS[ICD9: 702.11] Diagnosis: Brachioradial pruritus[ICD9: 698.9] Diagnosis: ASTHMA NOS[ICD9: 493.90] Belia Humphriesisabellaotoniel CORNELLBELIA BushraMayda KIESHA POOLE [facility] CPT-4: 09769 10/05/2013 ([id number]) OFFICE/OUTPATIENT VISIT EST Diagnosis: HYPERTENSION[ICD9: 401.9] Diagnosis: - I - FIBROMYALGIA[ICD9: 729.1] Diagnosis: DIZZINESS/VERTIGO[ICD9: 780.4] Diagnosis: MIGRAINE NOS/NOT INTRCBL[ICD9: 346.90] Diagnosis: Diabetic peripheral neuropathy[ICD9: 250.60] Diagnosis: Flank pain[ICD9: 789.00] Belia CORNELLLINE Yuridia POOLE [facility] CPT-4: 73553 08/04/2013 ([id number]) OFFICE/OUTPATIENT VISIT EST Diagnosis: ALLERGIC RHINITIS[ICD9: 477.9] Belia CORNELLLINE Bushra REID [facility] CPT-4: 34198 07/13/2013 OFFICE/OUTPATIENT VISIT EST Diagnosis: URINARY TRACT INFECTION[ICD9: 599.0] Huong De LunaFidepool REID [facility] CPT-4: 83906 07/03/2013 OFFICE/OUTPATIENT VISIT EST Diagnosis: HYPERTENSION[ICD9: 401.9] Diagnosis: URINARY TRACT INFECTION[ICD9: 599.0] Diagnosis: BACKACHE[ICD9: 724.5] Diagnosis: URINARY INCONTINENCE[ICD9: 788.30] Huong De LunaFidepool BASS MARIE Yuridia [facility] CPT-4: 73977 05/27/2013 ([id number]) OFFICE/OUTPATIENT VISIT EST Diagnosis: Flank pain[ICD9: 789.00] Belia Humphriesisabellaotoniel CORNELLBELIA BushraMayda KIESHA [facility] CPT-4: 91600 05/25/2013 ([id number]) OFFICE/OUTPATIENT VISIT EST Diagnosis: B-COMPLEX DEFIC NEC[ICD9: 266.2] Belia Anushka CORNELLLINE Yuridia [facility] CPT-4: 46956 05/04/2013 ([id number]) OFFICE/OUTPATIENT VISIT EST Diagnosis: ALLERGIC RHINITIS[ICD9: 477.9] Diagnosis: Vitamin B12 deficiency[ICD9: 266.2] Belia THOMPSON Yuridia REID [facility] CPT-4: 11484 04/17/2013 ([id number]) OFFICE/OUTPATIENT VISIT EST 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I[ICD9: 250.00] Diagnosis: URINARY TRACT INFECTION[ICD9: 599.0] Diagnosis: DIZZINESS/VERTIGO[ICD9: 780.4] Diagnosis: DIARRHEA[ICD9: 787.91] Belia Zacharynilson BRUNSON BushraMayda ZACHARYISABELLAReggie [facility] CPT-4: 30462 04/06/2013 ([id number]) OFFICE/OUTPATIENT VISIT EST Diagnosis: URINARY TRACT INFECTION[ICD9: 599.0] Diagnosis: URINARY RETENTION[ICD9: 788.20] Belia REID [facility] CPT-4: 98435 11/10/2012 ([id number]) OFFICE/OUTPATIENT VISIT EST Diagnosis: TACHYCARDIA[ICD9: 785.0] Diagnosis: SYNCOPE AND COLLAPSE[ICD9: 780.2] Diagnosis: CONSCIOUSNS ALTERAT NEC[ICD9: 780.09] Belia REID [facility] CPT-4: 85647 09/02/2012 OFFICE/OUTPATIENT VISIT EST Diagnosis: TACHYCARDIA[ICD9: 785.0] Diagnosis: SYNCOPE AND COLLAPSE[ICD9: 780.2] Belia REID [facility] CPT-4: 43076 08/04/2012 ([id number]) OFFICE/OUTPATIENT VISIT EST Diagnosis: Loss of consciousness[ICD9: 780.09] Diagnosis: Tachycardia[ICD9: 785.0] Diagnosis: MALAISE AND FATIGUE[ICD9: 780.79] Belia [facility] CPT-4: 78702 07/21/2012 ([id number]) OFFICE/OUTPATIENT VISIT EST Diagnosis: BRONCHITIS, ACUTE[ICD9: 466.0] Diagnosis: ASTHMA NOS[ICD9: 493.90] Belia POOLE [facility] CPT-4: 99666 07/02/2012 ([id number]) OFFICE/OUTPATIENT VISIT EST Diagnosis: CEPHALGIA[ICD9: 784.0] Belia Peguero [facility] CPT-4: 92199 06/25/2012 ([id number]) OFFICE/OUTPATIENT VISIT EST Diagnosis: GERD[ICD9: 530.81] Diagnosis: DIARRHEA[ICD9: 787.91] Diagnosis: URINARY TRACT INFECTION[ICD9: 599.0] Diagnosis: ASTHMA NOS[ICD9: 493.90] Diagnosis: ALLERGIC RHINITIS[ICD9: 477.9] Belia REID [facility] CPT-4: 37482 06/24/2012 ([id number]) OFFICE/OUTPATIENT VISIT EST Diagnosis: MIGRAINE NOS/NOT INTRCBL[ICD9: 346.90] Diagnosis: TREMOR NEC[ICD9: 333.1] Diagnosis: CHRONIC PAIN SYNDROME[ICD9: 338.4] Belia Zacharynilson SALAZAR BushraMayda ANUSHKA Lastline [facility] CPT-4: 34293 05/20/2012 ([id number]) OFFICE/OUTPATIENT VISIT EST Diagnosis: DIZZINESS/VERTIGO[ICD9: 780.4] Diagnosis: PALPITATIONS[ICD9: 785.1] Diagnosis: TREMOR NEC[ICD9: 333.1] Diagnosis: ANXIETY STATE NOS[ICD9: 300.00] Diagnosis: POSTTRAUMATIC STRESS DISORDER[ICD9: 309.81] Belia Zacharynilson BRUNSON BushraMayda ANUSHKA Lastline [facility] CPT-4: 89997 05/08/2012 ([id number]) OFFICE/OUTPATIENT VISIT EST Diagnosis: MIGRAINE NOS/NOT INTRCBL[ICD9: 346.90] Diagnosis: FIBROMYALGIA[ICD9: 729.1] Diagnosis: SYNCOPE AND COLLAPSE[ICD9: 780.2] Diagnosis: Diabetic peripheral neuropathy[ICD9: 250.60] Belia Zacharynilson BELIA BushraMayda LUIS Lastline [facility] CPT-4: 69492 04/22/2012 OFFICE/OUTPATIENT VISIT EST Diagnosis: ROTATOR CUFF DIS NEC[ICD9: 726.19] Diagnosis: JOINT PAIN-SHLDER[ICD9: 719.41] Diagnosis: DYSPEPSIA[ICD9: 536.8] Beila Zacharynilson BELIA BushraMayda RALF [employer] CPT-4: 51493 02/13/2012 ([id number]) OFFICE/OUTPATIENT VISIT EST Diagnosis: MIGRAINE NOS/NOT INTRCBL[ICD9: 346.90] Diagnosis: GERD[ICD9: 530.81] Diagnosis: DYSPEPSIA[ICD9: 536.8] Belia BRUNSON BushraMayda RALF Peg[employer]ero Lastline [facility] CPT-4: 69868 01/28/2012 OFFICE/OUTPATIENT VISIT EST Diagnosis: CEPHALGIA[ICD9: 784.0] Diagnosis: MIGRAINE NOS/NOT INTRCBL[ICD9: 346.90] Diagnosis: GERD[ICD9: 530.81] Diagnosis: INSOMNIA NOS[ICD9: 780.52] Belia Shi RAND DAILEYER Lastline [facility] CPT-4: 38142 12/26/2011 ([id number]) OFFICE/OUTPATIENT VISIT EST Diagnosis: CEPHALGIA[ICD9: 784.0] Diagnosis: MIGRAINE NOS/NOT INTRCBL[ICD9: 346.90] Diagnosis: MALAISE AND FATIGUE[ICD9: 780.79] Diagnosis: FIBROMYALGIA[ICD9: 729.1] Diagnosis: ALLERGIC RHINITIS[ICD9: 477.9] Belia REID Lastline [facility] CPT-4: 81193 11/14/2011 ([id number]) OFFICE/OUTPATIENT VISIT EST Diagnosis: MALAISE AND FATIGUE[ICD9: 780.79] Diagnosis: MUSCLE WEAKNESS-GENERAL[ICD9: 728.87] Diagnosis: MIGRAINE NOS/NOT INTRCBL[ICD9: 346.90] Diagnosis: JOINT PAIN-SHLDER[ICD9: 719.41] Belia REID Lastline [facility] CPT-4: 46935 09/12/2011 ([id number]) OFFICE/OUTPATIENT VISIT EST Diagnosis: CONCUSSION[ICD9: 850.9] Diagnosis: Ataxia[ICD9: 781.3] Diagnosis: DIZZINESS/VERTIGO[ICD9: 780.4] Belia REID Lastline [facility] CPT-4: 17136 08/15/2011 ([id number]) OFFICE/OUTPATIENT VISIT EST Diagnosis: THROMBOPHLEBITIS[ICD9: 451.9] Diagnosis: Subacromial bursitis[ICD9: 726.19] Diagnosis: ALLERGIC RHINITIS[ICD9: 477.9] Diagnosis: Lipoma[ICD9: 214.9] Belia REID [facility] CPT-4: 65740 08/09/2011 ([id number]) OFFICE/OUTPATIENT VISIT EST Diagnosis: THROMBOPHLEBITIS[ICD9: 451.9] Diagnosis: Arm pain[ICD9: 729.5] Diagnosis: Clostridium difficile colitis[ICD9: 008.45] Diagnosis: URINARY TRACT INFECTION[ICD9: 599.0] Belia REID Lastline [facility] CPT-4: 67894 07/03/2011 ([id number]) OFFICE/OUTPATIENT VISIT EST Diagnosis: ARTHRALGIA-MULTIPLE SITES[ICD9: 719.49] Diagnosis: Muscle cramp[ICD9: 729.82] Diagnosis: INSOMNIA NOS[ICD9: 780.52] Belia DOMINGUEZ [facility] CPT-4: 13915 06/04/2011 OFFICE/OUTPATIENT VISIT EST Diagnosis: Headache[ICD9: 784.0] Diagnosis: Allergic rhinitis[ICD9: 477.9] [facility]: 33124 05/03/2011 OFFICE/OUTPATIENT VISIT EST Diagnosis: LUMB/LUMBOSAC DISC DEGEN[ICD9: 722.52] Diagnosis: MIGRAINE NOS/NOT INTRCBL[ICD9: 346.90] Diagnosis: CHRONIC PAIN SYNDROME[ICD9: 338.4] Diagnosis: RESTLESS LEGS SYNDROME[ICD9: 333.94] Belia CORNELL CLAYTON Yuridia [facility] CPT-4: 03056 04/05/2011 OFFICE/OUTPATIENT VISIT EST Diagnosis: MIGRAINE NOS/NOT INTRCBL[ICD9: 346.90] Diagnosis: GERD[ICD9: 530.81] [facility] CPT-[facility]: 10338 03/08/2011 OFFICE/OUTPATIENT VISIT EST Diagnosis: URINARY TRACT INFECTION[ICD9: 599.0] Diagnosis: Vertigo[ICD9: 780.4] Diagnosis: GERD[ICD9: 530.81] [facility] CPT-[facility]: 40598 01/24/2011 OFFICE/OUTPATIENT VISIT EST Diagnosis: Hypotension[ICD9: 458.9] Diagnosis: Syncopal episodes[ICD9: 780.2] Diagnosis: MIGRAINE NOS/NOT INTRCBL[ICD9: 346.90] Diagnosis: MALAISE AND FATIGUE[ICD9: 780.79] Belia Zacharynilson Paredes Yuridia [facility] CPT-4: 06159 01/02/2011 OFFICE/OUTPATIENT VISIT EST Diagnosis: Tinea cruris[ICD9: 110.3] Diagnosis: Intertrigo[ICD9: 695.89] Diagnosis: MIGRAINE NOS/NOT INTRCBL[ICD9: 346.90] Belia COKER Yuridia [facility] CPT-4: 06734 12/07/2010 OFFICE/OUTPATIENT VISIT EST Diagnosis: PALPITATIONS[ICD9: 785.1] Diagnosis: ANXIETY STATE NOS[ICD9: 300.00] Belia Zacharyisabellaotoniel COR[facility]LLBELIA [facility] CPT-4: 95385 11/16/2010 OFFICE/OUTPATIENT VISIT EST Diagnosis: URINARY TRACT INFECTION[ICD9: 599.0] Diagnosis: MIGRAINE NOS/NOT INTRCBL[ICD9: 346.90] Iraida Robert SONJA UELINE [facility] CPT-4: 94716 11/02/2010 OFFICE/OUTPATIENT VISIT EST Diagnosis: ALLERGIC RHINITIS[ICD9: 477.9] Diagnosis: ANXIETY STATE NOS[ICD9: 300.00] Beliahanna HSUQUELINE [facility] CPT-4: 46089 10/18/2010 OFFICE/OUTPATIENT VISIT EST Belia Zacharyisabellaotoniel [facility]LLBELIA [facility] CPT- 4: 90155 09/19/2010 OFFICE/OUTPATIENT VISIT EST Belia Zacharyisabellaotoniel COR[facility]LLBELIA [facility] CPT- 4: 59424 09/06/2010 ([id number]) OFFICE/OUTPATIENT VISIT EST Belia Zacharyisabellaotoniel CASILLAS UEL[facility] CPT-4: 51321 08/10/2010 ([id number]) OFFICE/OUTPATIENT VISIT EST Belia Zacharyisabellaotoniel HSUQ UELINE [facility] CPT-4: 37147 05/11/2010 ([id number]) OFFICE/OUTPATIENT VISIT, EST Belia HSU ROBERTOCLAYTON [facility] CPT-4: 64248 04/06/2010 ([id number]) OFFICE/OUTPATIENT VISIT, EST Belia HSU QUELINE [facility] CPT-4: 25654 02/09/2010 ([id number]) OFFICE/OUTPATIENT VISIT, EST Belia DELGADO [facility] CPT-4: 05455 01/05/2010 ([id number]) OFFICE/OUTPATIENT VISIT, EST Belia HSU ROBERTOCLAYTON [facility] CPT-4: 53292 12/07/2009 ([id number]) OFFICE/OUTPATIENT VISIT, EST Beliahanna [facility] CPT-4: 26748 11/08/2009 ([id number]) OFFICE/OUTPATIENT VISIT, [facility]OS [facility] CPT-4: 77860 10/24/2009 ([id number]) OFFICE/OUTPATIENT VISIT, [facility] CPT-4: 44043 07/25/2009 ([id number]) OFFICE/OUTPATIENT VISIT, [facility] CPT-4: 34816 05/26/2009 Plan of Care Planned Activity Notes [...] ICD-10 : R06.00 06/24/2019 Visit Diagnosis Plan: Colitis Discussion: Levaquin/Fla gyl Burnett Diet ICD-9 : 558.9 ICD-10 : K52.9 06/16/2019 Visit Diagnosis Plan: Acute bronchitis Discussion: Cov er with levaquin Increase SVNs with albuterol to QID Has oxygen using q HS routinely and prn To ER if oxygen levels drop or worsening respiratory symptoms ICD-9 : 466.0 ICD-10 : J20.9 06/16/2019 Appointment: Bel[facility] Reid [facility]el[facility] [phone] [id number] [facility] 06/16/2019 Patient Education: Levaquin- Optimize[employer] Coupon [id number] [id number] [email or web address] Completed 06/16/2019 Visit Diagnosis Plan: Diarrhea Discussion: Vancomycin for 10 days and notify if not improving or worsening BLAND diet Hydrate ICD-9 : 787.91 ICD-10 : R19.7 06/08/2019 Appointment: Belia Reidtel: [address] [place] [address] TELEMEDICINE 06/08/2019 Visit Diagnosis Plan: Colitis Discussion: Flagyl plus cipro to cover for both colitis and UTI Notify or to ER if worsening ICD-9 : 558.9 ICD-10 : K52.9 05/26/2019 Visit Diagnosis Plan: Acute febrile illness Discussion : Notify if worsens ICD-9 : 780.60 ICD-10 : R50.9 05/26/2019 Appointment: Belia Reidtel: [address] [place] [address] TELEMEDICINE 05/26/2019 Appointment: Pattie Sotomayor [address] RESCHEDULED 05/18/2019 Visit Diagnosis Plan: Chronic obstructive pulmonary di sease, unspecified Discussion: Recommend pulmonary rehab Patient states she never went to pulmonary rehab due to cost as well as transportation issues Finish trelagy Stop singulair Decrease hydroxyzine to 25mg po q HS Fwup [address] scan of Chest results discussed ICD-9 : 496 ICD-10 : J44.9 05/13/2019 Appointment: Belia Reid WPtel: [address] [place] [address] Hospital Follow Up 05/13/2019 Visit Diagnosis Plan: COUGH Discussion: Check CT scan of chest ICD-9 : 786.2 ICD-10 : R05 05/06/2019 Visit Diagnosis Plan: Stridor Discussion: Add Trelagy 1 p daily Add Singulair 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 ICD-9 : 786.1 ICD-10 : R06.1 05/06/2019 Appointment: Belia Reid: [address] [place] [address] FOLLOW UP 05/06/2019 Patient Education: Singulair- [employer] Coupon [id number] [email or web address]/samplemd/resources/[email or web address] Completed 05/06/2019 Appointment: Belia Reid WPtel: [address] [place] [address] US RESCHEDULED 04/30/2019 Visit Diagnosis Plan: Stridor [...] : G25.5 04/29/2019 Appointment: Belia Reid WPtel: [address] [place] [address] Hospital Follow Up 04/29/2019 Patient Education: Valium- [employer] Coupon [id number] [email or web address]/samplemd/resources/getResource/[email or web address] Completed 04/29/2019 Visit Diagnosis Plan: Flank pain [...] ICD-10 : R63.5 04/16/2019 Appointment: Pattie Sotomayor [address] [place] [address] ACUTE ILLNESS 04/16/2019 Patient Education: cyclobenzaprine- [employer] Coupon [id number] [email or web address]com/samplemd/resources/[email or web address] Completed 04/16/2019 Visit Diagnosis Plan: Migraine, unspecif ied, not intractable, without status migrainosus Discussion: Increase gabapentin to 600mg po BID ICD-9 : 346.90 ICD-10 : G43.909 04/08/2019 Visit Diagnosis Plan: Generalized pruritus Discussion: Hydroxyzine 25mg po TID for itching and anxiety ICD-9 : 698.9 ICD-10 : L29.9 04/08/2019 Appointment: Belia Reid WPtel: [address] [place] [address] ACUTE ILLNESS 04/08/2019 Visit Diagnosis Plan: Cervicalgia [...] : M75.52 01/22/2019 Appointment: Belia Reid WPtel: [address] [place] [address] Hospital Follow Up 01/22/2019 Visit Diagnosis Plan: Abdominal pain Discussion: urine culture sent to assess for any infection. rocephin given in office to cover for pyelonephritis. instructed to push fluids. call office with any new or worsening symptoms. ICD-9 : 789.00 ICD-10 : R10.9 01/07/2019 Appointment: Pattie Sotomayor [address] [place] [address] ACUTE ILLNESS 01/07/2019 Visit Diagnosis Plan: Low back pain Discussion: Stat C T of abdomen/pelvis now ICD-9 : 724.2 ICD-10 : M54.5 12/24/2018 Appointment: Belia Reid WPtel: [address] [place] [address] FOLLOW UP 12/24/2018 Visit Diagnosis Plan: Migraine, [...] : M79.7 11/20/2018 Appointment: Belia Reid WPtel: [phone] ACUTE ILLNESS 11/20/2018 Patient Education: baclofen- OptimizeRX Coupon [id number] https://www.CDP/sample[employer]al [employer]/resources/getResource/61/7g9048w6-ol9e-62bn-99 Completed 11/20/2018 Visit Diagnosis Plan: Migraine, unspecif ied, intractable, without status migrainosus Discussion: toradol/phenergan given in o ffice (60 mg toradol, 12.5 mg phenergan). instructed to call if no improvement or worsening. instructed to follow up with metrology specialist since headaches are occurring more frequently to make sure vision is not the cause. ICD-9 : 346.91 ICD-10 : G43.919 11/04/2018 Visit Diagnosis Plan: Acute sinusitis, unspecified Dis cussion: zithromax prescribed to cover for sinus infection due to length of symptoms and clinincal s/s. ICD-9 : 461.9 ICD-10 : J01.90 11/04/2018 Appointment: Pattie Sotomayor [address] [place] [address] ACUTE ILLNESS 11/04/2018 Appointment: Belia Reid WPtel: [phone] [phone] US CANCELED 09/24/2018 Visit Diagnosis Plan: Type 2 diabetes me llitus with diabetic neuropathy, unspecified Discussion: Retry gabapentin 300mg po q HS ICD-9 : 250.60 ICD-10 : E11.40 09/18/2018 Visit Diagnosis Plan: Vitamin D deficiency, unspecifie d Discussion: Increase Vitamin D3 to 10,000 u daily ICD-9 : 268.9 ICD-10 : E55.9 09/18/2018 Visit Diagnosis Plan: Encounter for [facility] adult medical examination without [...] Belia Reid WPtel: [facility] Annual Well Visit 09/18/2018 Patient Education: gabapentin- OptimizeRX Coupon [phone] https://www.[employer]ivartes/samplemd/resources/getResource/61/0v56mp91-1xy8-4keg-l7 Completed 09/18/2018 Visit Diagnosis Plan: Pain in [...] ICD-10 : M54.89 09/08/2018 Appointment: Pattie Sotomayor [address] [place], [place] [id number] ACUTE ILLNESS 09/08/2018 Patient Education: prednisone- OptimizeRX Coupon [phone] https://www.[employer].com/samplemd/resources/getResource/61/5j2mb62b-2722-30g5-ye Completed 09/08/2018 Visit Diagnosis Plan: Pruritus, unspecified [...] E10.9 08/20/2018 Appointment: Bel[facility] Reid [facility]el[phone] [facility] [facility] 08/20/2018 Patient Education: Lexapro- OptimizeRX Coupon [id number] Completed 08/20/2018 Patient Education: hydroxyzine HCl- [employer] Coupon [id number] Completed 08/20/2018 Care Plan: MAMMOGRAM SCREENING LOINC : 2 6347-5 Pending 08/20/2018 Visit Diagnosis Plan: Paroxysmal atrial fibrillation D iscussion: Discuss eliquis need with [facility] ICD-9 : 427.31 ICD-10 : I48.0 06/19/2018 Visit Diagnosis Plan: Hypotension due to drugs Discuss ion: Discussed decreasing cardizem dose due to low BP and edema but sees cardiology next week Follow Up: 1 months ICD-9 : 458.8 ICD-10 : I95.2 06/19/2018 Appointment: Belia Reid WPtel: [phone] [facility] [facility] FOLLOW [facility] 06/19/2018 Visit Diagnosis [...] : R61 06/09/2018 Appointment: Belia Reid WPtel: [address] [place] [address] FOLLOW UP 06/09/2018 Care Plan: CHEST X-RAY 2VW FRONTAL&LATL LOINC : 85631-3 Pending 05/26/2018 Visit Diagnosis Plan: Supraventricular tachycardia [...] : R53.1 05/21/2018 Appointment: Belia Reid WPtel: [address] [place] [address] Hospital Follow Up 05/21/2018 Visit Diagnosis Plan: Cervical disc diso rder with radiculopathy, unspecified cervical region Discussion: Scheduled for surgery on 06/02 10/[address] Faulkner ICD-9 : 722.0 ICD-10 : M50.10 04/16/2018 Appointment: Belia Reid WPtel: [address] [place] [address] Hospital Follow Up 04/16/2018 Visit Diagnosis Plan: [...] ICD-10 : G43.919 04/01/2018 Appointment: Pattie Sotomayor [address] [place] [address] ACUTE ILLNESS 04/01/2018 Appointment: Belia Reid WPtel: [address] [place], [place] [phone] [place] [address] 03/17/2018 Visit Diagnosis Plan: Chronic obstructiv e [...] : E11.65 03/06/2018 Appointment: Belia Reid WPtel: [address] [place] [address] Hospital Follow Up 03/06/2018 Visit Diagnosis Plan: Cervicalgia Discussion: spoke wi th dr. reid about patient. increased gabapentin to bid and started on celebrex bid. tramadrol rx written out to take prn. keep scheduled appt next week for myelogram. ICD-9 : 723.1 ICD-10 : M54.2 02/05/2018 Appointment: Pattie Sotomayor [address] [place], [place] [id number] ACUTE ILLNESS 02/05/2018 Care Plan: X-RAY EXAM NECK SPINE 4/5VWS cervical LOINC : 15928-9 Pending 01/21/2018 Visit Diagnosis Plan: Candidiasis of [...] ICD-10 : M54.2 01/20/2018 Appointment: Pattie Sotomayor [address] [place] [address] ACUTE ILLNESS 01/20/2018 Visit Diagnosis Plan: Pain in thoracic spine Discussio n: Proceed with CT scan of thoracic spine Will likely need PT ICD-9 : 724.1 ICD-10 : M54.6 12/25/2017 Appointment: Belia Reid WPtel: [address] [place] [address] FOLLOW UP 12/25/2017 Care Plan: CT THORAX W/O DYE LOINC : 473 66-0 Pending 12/25/2017 Visit Diagnosis Plan: Pain in thoracic spine Discussio n: Stretches Alternated heat/ice Topical aspercreme with lidocaine Flexeril Recheck 1 week Flu and Pneumovax given ICD-9 : 724.1 ICD-10 : M54.6 12/17/2017 Appointment: Belia Reid WPtel: [address] [place] [address] ACUTE ILLNESS 12/17/2017 Patient Education: Patient Medication [...] : J44.1 10/30/2017 Appointment: Belia Reid WPtel: [address] [place] [address] FOLLOW UP 10/30/2017 Patient Education: Patient Medication Summary Completed 10/30/2017 Visit Diagnosis Plan: Chronic obstructiv e pulmonary disease with acute lower respiratory infection Discussion: Continue SVNs with albuterol q4hrs Add Trelagy 1 inhalation daily Finish steroids Increase water intake Follow Up: 1 weeks ICD-9 : 496 ICD-10 : J44.0 10/23/2017 Appointment: Belia eRidtel: [address] [place], [place] [phone] US WORK IN 10/23/2017 Patient Education: Patient Medication Summary Completed 10/23/2017 Appointment: Belia Reid WPtel: [address] [place], [place] [phone] NO SHOW 10/16/2017 Visit Diagnosis Plan: [...] : E11.65 09/17/2017 Appointment: Belia Reid WPtel: [address] [place] [address] Annual Well Visit 09/17/2017 Patient Education: Patient Medication Summary Completed 09/17/2017 Appointment: Belia Reid WPtel: [address] [place], [place] [phone] [place] INJECTION 08/26/2017 Patient Education: Patient Medication Summary Completed 08/26/2017 Appointment: Belia Reid WPtel: [address] [place], [place] [phone] US CANCELED 07/31/2017 Visit Diagnosis Plan: Encounter [...] : J20.9 07/19/2017 Appointment: Pattie Sotomayor [address] ACUTE ILLNESS 07/19/2017 Patient Education: Patient Medication Summary Completed 07/19/2017 Care Plan: MAMMOGRAM SCREENING LOINC : 2 6347-5 Pending 07/19/2017 Patient Education: Patient Medication Summary Completed 06/05/2017 Care Plan: LIPID PANEL LOINC : 66245-8 Pending 06/05/2017 Care Plan: A1C HPLC LOINC : 13307-0 Pending 06/05/2017 Visit Diagnosis Plan: Rash and [...] : R21 05/29/2017 Appointment: Pattie Sotomayor [address] [phone] FOLLOW UP 05/29/2017 Patient Education: Patient Medication Summary Completed 05/29/2017 Visit Diagnosis Plan: Tinea corporis Discussion: Diflu can and topical nystatin Follow Up: 2 weeks ICD-9 : 110.5 ICD-10 : B35.4 05/07/2017 Visit Diagnosis Plan: Diarrhea, unspecified Discussion : Diflucan Cholestyramine Recheck 2weeks ICD-9 : 787.91 ICD-10 : R19.7 05/07/2017 Appointment: Belia Reid WPtel: [address] [place], [place] [address] [place] FOLLOW UP 05/07/2017 Patient Education: Patient Medication Summary Completed 05/07/2017 Appointment: Belia Reid WPtel: [address] [place], [place] [address] US RESCHEDULED 04/30/2017 Visit Diagnosis Plan: Chronic obstructiv e pulmonary disease with (acute) exacerbation Discussion: Finish prednisone Continue S VNS with albuterol ICD-9 : 491.21 ICD-10 : J44.1 03/18/2017 Visit Diagnosis Plan: Stridor Discussion: Increase Ati van 0.5mg po to TID routinely for next week then can go back to prn ICD-9 : 786.1 ICD-10 : R06.1 03/18/2017 Appointment: Belia Reid WPtel: [address] [place], [place] [phone] ER Follow UP 03/18/2017 Patient Education: Patient [...] : E11.65 02/27/2017 Appointment: Belia Reid WPtel: [address] [place], [place] [address] US FOLLOW UP 02/27/2017 Patient Education: Patient [...] ICD-10 : E11.65 02/22/2017 Appointment: Pattie Sotomayor [address] [place] [address] ACUTE ILLNESS 02/22/2017 Patient Education: Patient Medication [...] : J18.9 01/23/2017 Appointment: Belia Reid WPtel: [facility] [address] ER Follow UP 01/23/2017 Patient Education: Patient Medication Summary Completed 01/23/2017 Appointment: Pattie Sotomayor [address] [place] [address] CANCELED 01/17/2017 Appointment: Pattie Sotomayor [address] [place] [address] Annual Well Visit 01/14/2017 Visit Diagnosis Plan: Type 2 diabetes mellitus with hy perglycemia Discussion: Check CMP, HbA1C Flu shot and Prevnar 13 given Follow Up: 3 months ICD-9 : 250.02 ICD-10 : E11.65 12/20/2016 Visit Diagnosis Plan: Localized edema Discussion: Low Na diet Compression socks/Elevate feet ICD-9 : 782.3 ICD-10 : R60.0 12/20/2016 Appointment: Belia Reid WPtel: [phone] [phone] US FOLLOW UP 12/20/2016 Patient Education: Patient Medication Summary Completed 12/20/2016 Patient Education: Patient Medication Summary Completed 10/10/2016 Visit Plan: Xrays of cervical, thoracic and lumbar spine at ER[facility] for Mobic (stop NSAIDS except Tylenol) and Flexeril UA sent for C&S Using SVN Call in 2-3 days if pain not improved or any worsening 10/08/2016 Appointment: Celeste Ferreira WPtel: [phone] [facility] ACUTE ILLNESS 10/08/2016 Patient Education: Patient Medication [...] : E11.65 09/19/2016 Appointment: Belia Reid WPtel: [address] [place], [place] [phone] 09/18 confirmed`sl FOLLOW UP 09/19/2016 Patient Education: [...] : R10.84 08/20/2016 Appointment: Belia Reid WPtel: [facility] 08/16 confirmed~sl FOLLOW UP 08/20/2016 Patient Education: [...] : J44.9 06/19/2016 Appointment: Belia Reid WPtel: [address] [place], [place] [phone] 06/18 confirmed ~ Hospital Follow Up 06/19/2016 [...] : Z87.440 06/04/2016 Appointment: Belia Reid WPtel: [address] [place], [place] [phone] 06/01 confirmed~ FOLLOW UP 06/04/2016 Patient Education: [...] R06.1 05/02/2016 Appointment: Belia Reid WPtel: [address] [place], [place] [phone] 05/01 confirmed ~ Hospital Follow Up 05/02/2016 [...] : N39.0 04/03/2016 Appointment: Belia Reid WPtel: [address] [place] [address] [facility] 04/03/2016 Patient Education: Patient Medication Summary Completed 04/03/2016 Visit Plan: Lungs are clear Her symptoms and exam are all upper airway restriction/constriction Can try supportive care Rx as above Follow up PRN 02/29/2016 Appointment: Ldiia Hwang [address] [place] [address] ACUTE ILLNESS 02/29/2016 Patient Education: Patient Medication Summary Completed 02/29/2016 Visit Plan: Toradol/Phenergan today for Migraine Change to Clindamycin to cover lactobacillus for UTI Cover with flagyl due to hx of C. Diff 02/02/2016 Appointment: Belia Reid WPtel: [address] [place] [address] 01/31 confirmed` ACUTE ILLNESS 02/02/2016 Patient Education: Patient Medication Summary Completed 02/02/2016 Visit Plan: Increase neurontin to 300mg q AM and 600mg q PM Discussed neurology re-evaluation Flu shot given Need to check on Pneumonia shot Rx written out for albuterol 01/05/2016 Appointment: Belia Reid WPtel: [address] [place] [address] 01/03 confirmed ~ Annual Well Visit 01/05/2016 Patient Education: Patient Medication Summary Completed 01/05/2016 Visit Plan: Cipro Culture urine hydrate Flexeril refilled Alternate heat and ice for back Increase gabapentin to 300mg po BID Notify if worsens 12/05/2015 Appointment: Belia Reid [facility]Ptel: [phone] [facility] 11/30 confirmed~sl ACUTE ILLNESS 12/05/2015 Patient Education: Patient Medication Summary Completed 12/05/2015 Patient Education: Patient Medication Summary Completed 10/27/2015 Care Plan: COMPREH[place]AB[place] : [address]-5 Pending 10/27/2015 Care Plan: A1C HPLC LOINC : 23537-0 Pending 10/27/2015 Visit Plan: Lungs are CTA today and is f eeling improved overall Finish meds as ordered Continue inhalers and neb treatments Discussed migraine treatment options She does not feel she needs anything additional added today Refill of Januvia sent since no samples are available today 10/26/2015 Appointment: Lidia Hwang [address] [place], [place] [phone] Hospital Follow Up 10/26/2015 Appointment: Lidia Hwang [address] [place], [place] [phone] CANCELED 10/26/2015 Patient Education: Patient Medication Summary Completed 10/26/2015 Patient Education: Jesseniaia - 18+ - KENNETH - No [place] Completed 10/26/2015 Visit Plan: Office dip still abnormal Cu lture pending Switch to cipro - stop macrobid Push fluids - avoid caffeine Will call with culture results when available Follow up if worsening 10/05/2015 Appointment: Lidia Hwang [address] [place], [place] [phone] ER Follow UP 10/05/2015 Patient Education: Patient Medication Summary Completed 10/05/2015 Visit Plan: Proceed with PT for document ation of ROM and strength of all extremities Proceed with Power Mobility Device Trial of neurontin 300mg q HS--lyrica helped but patient unable to afford Recheck 1month 09/15/2015 Appointment: Belia Reid WPtel: [phone] [facility] 09/13 confirmed~sl SPECIAL 09/15/2015 Patient Education: Patient Medication Summary Completed 09/15/2015 Visit Plan: Fille out Loan Discharge Pap erwork for total and permanent disability 08/25/2015 Patient Education: Patient Medication Summary Completed 08/25/2015 Visit Plan: Discussed with Dr Anushka Haywood at CT of head Will get last date of carotid doppler from her quantitative strategy analyst and update if needed 08/24/2015 Appointment: Lidia Hwang [address] [place] [address] 08/22 confirmed~sl ACUTE ILLNESS 08/24/2015 Patient Education: Patient Medication Summary Completed 08/24/2015 Patient Education: Patient Medication Summary Completed 08/24/2015 Care Plan: US EXAM OF HEAD AND NECK carotid Ultrasound LOIN C : 68210-4 Pending 08/24/2015 Visit Plan: Long discussion about diet A ccuchecks daily Check HbA1C, CMP Change requip to mirapex 07/05/2015 Appointment: Belia Reid WPtel: [address] [place] [address] 07/03 confirmed ~sl FOLLOW UP 07/05/2015 Patient Education: Patient Medication Summary Completed 07/05/2015 Visit Plan: Add Breo ellipta 100 1 p BID Continue SVNs with duoneb QID 06/06/2015 Appointment: Belia Reid WPtel: [address] [place] [address] Patient is calling for a ride, then retu rning our call.-sp 06/01 called and patient stated she will know saturday if she can get a ride~sl 06/05 [facility] Hospital Follow Up 06/06/2015 Patient Education: [...] not improving 05/23/2015 Appointment: Huong Osborne WPtel: [facility] [address] ACUTE ILLNESS 05/23/2015 Appointment: [facility]idia Hwang [facility] [facility] [facility] Follow UP 05/23/2015 Patient Education: Patient Medication Summary Completed 05/23/2015 Visit Plan: Check pancreatic enzymes and US of pancreas as patient can't understand why she has diabetes since has no family history Discussed weight, diet, exercise all play an important role in diabetes and are risk factors as well Continue Januvia and accuchecks daily 05/05/2015 Appointment: Belia Reid WPtel: [address] [place], [place] [phone] US FOLLOW UP 05/05/2015 Patient Education: Patient Medication Summary Completed 05/05/2015 Care Plan: US EXAM ABDOM COMPLETE LOINC : 61876-0 Ordered 05/05/2015 Visit Plan: Start Januvia 100mg daily [place] with diflucan and culture urine Accuchecks daily alternating times Recheck 6weeks 03/30/2015 Appointment: Belia Reid WPtel: [address] [place] [address] 03/29 confirmed~lb FOLLOW UP 03/30/2015 Patient Education: Patient Medication Summary Completed 03/30/2015 Appointment: Belia Reid WPtel: [address] [place] [address] 03/01 needs reschedule due to payment and insurance ~sl FOLLOW UP 03/02/2015 Visit Plan: Patient was just in ER last night so has not filled scripts yet Start Carafate and Flagyl and Cipro Add Hyophen 1 po BID Recheck 1mo 02/03/2015 Appointment: Belia Reid WPtel: [address] [place], [place] [phone] 02/02lm ~sl...02/03/15 appt confirmed cn ACUTE I LLNESS 02/03/2015 Patient Education: Patient Medication Summary Completed 02/03/2015 Visit Plan: Warm soaks to vaginal area K elex and Diflucan and observe Zofran to use prn 12/29/2014 Appointment: Belia Reid WPtel: [facility] 12/28 Confirmed ~sl ACUTE ILLNESS 12/29/2014 Patient Education: Patient Medication Summary Completed 12/29/2014 Appointment: Huong Osborne WPtel: [address] [place], [place] [phone] FOLLOW UP 09/24/2014 Appointment: Belia Reid WPtel: [address] [place], [place] [phone] 09/15 confirmed -mf FOLLOW UP 09/16/2014 Visit Plan: Increase requip to 2mg po BI D Increase lyrica to 225mg total a day by adding an extra 75mg in AM Recheck in 2weeks Continue to patch left eye while sleeping 09/02/2014 Appointment: Belia Reid WPtel: [address] [place], [place] [phone]t confirmed Hospital Follow Up 09/02 Patient Education: Patient Medication Summary Completed 09/02/2014 Visit Plan: To Via Ayanna for observat ion to R/O CVA 08/25/2014 Appointment: Huong Osborne WPtel: [address] [place], [place] [phone] ACUTE ILLNESS 08/25/2014 Patient Education: Patient Medication Summary Completed 08/25/2014 Referral: Aaron Jonas WPtel: [facility] [address] [place] location Initiated 04/26/2014 Referral: Brian Srinivasan WPtel: [place] [place] [facility] [place] [id number] Referral Initiated 04/20/2014 Appointment: Belia Reid WPtel: [address] [place], [place] [phone] ER Follow UP 04/01/2014 Patient Education: Patient Medication Summary Completed 04/01/2014 Care Plan: MYELOGRAPHY NECK SPINE LOINC : 10317-7 Ordered 04/01/2014 Visit Plan: Continue Symbicort 160 at 2p BID Continue SVNs with duoneb at least QID Finish Levaquin Recheck 1mo on lyrica 03/16/2014 Appointment: Belia Reid WPtel: [address] [place], [place] [address] 03/15 voicemail FOLLOW UP 03/16/2014 Patient Education: Patient Medication Summary Completed 03/16/2014 Visit Plan: Restart SVNs with duoneb QID Repeat prednisone Levaquin Continue symbicort Keep lyrica at same dose Recheck 1week 03/09/2014 Appointment: Belia Reid WPtel: [address] [place], [place] [phone] FOLLOW UP 03/09/2014 Patient Education: Patient Medication Summary Completed 03/09/2014 Appointment: Belia Reid WPtel: [address] [place], [place] [phone] 03/03 showed up 15 minutes late for appt -- put her on Huong's side for 10:45am FORGIVEN PER DR FOLLOW UP 03/03/2014 Appointment: Huong Osborne WPtel: [address] [place], [place] [phone] FOLLOW UP 03/03/2014 Patient Education: Patient Medication Summary Completed 03/03/2014 Appointment: Huong Osborne WPtel: [address] [place], [place] [phone] ER Follow UP 03/01/2014 Patient Education: Patient Medication Summary Completed 03/01/2014 Visit Plan: Add carafate for this next m onth Increase lyrica to 150mg q HS 02/09/2014 Appointment: Belia Reid WPtel: [address] [place], [place] [phone] [facility] Follow Up 02/09/2014 Patient Education: Patient Medication Summary Completed 02/09/2014 Visit Plan: Increase omeprazole back to 40mg po BID Use requip in AM and add lyrica 75mg q HS Recheck 1mo 12/23/2013 Appointment: Belia Reid WPtel: [address] [place] [address] FOLLOW UP 12/23/2013 Patient Education: Patient Medication Summary Completed 12/23/2013 Patient Education: Patient Medication Summary Completed 12/04/2013 Appointment: Belia Reid WPtel: [address] [place] [address] UA 10/30/2013 Patient Education: Patient Medication Summary Completed 10/30/2013 Appointment: Belia Reid WPtel: [address] [place] [address] UA 10/21/2013 Patient Education: Patient Medication Summary Completed 10/21/2013 Visit Plan: Cryotherapy as above TAC and hydroxyzine to use prn to itching spots and itching SKs Add Advair HFA /21 1 p BID 10/05/2013 Appointment: Belia Reid WPtel: [address] [place] [address] 10/01 pt called and confirmed ACUTE ILLNESS Patient Education: Patient Medication Summary Completed 10/05/2013 Appointment: Belia Reid WPtel: [address] [place] [address] will pay copay and part of past balance FOLLOW U P 08/04/2013 Patient Education: Patient Medication Summary Completed 08/04/2013 Appointment: Belia Reid WPtel: [address] [place], [place] [phone] US INJECTION 07/13/2013 Patient Education: Patient Medication Summary Completed 07/13/2013 Appointment: Huong Osborne WPtel: [address] [place], [place] [phone] ACUTE ILLNESS 07/03/2013 Patient Education: Patient Medication Summary Completed 07/03/2013 Visit Plan: Cipro and culture urine 05/27/2013 Appointment: Huong Osborneteabigail: [address] [facility] [facility] 05/26 confirmed appt and notified that balance and copy messenger y is due at appt time FOLLOW UP 05/27/2013 Patient Education: Patient Medication Summary Completed 05/27/2013 Appointment: Belia Reid WPtel: [address] [place], [place] [phone] US UA 05/25/2013 Patient Education: Patient Medication Summary Completed 05/25/2013 Appointment: Belia Reid WPtel: [address] [place], [place] [phone] US INJECTION 05/04/2013 Patient Education: Patient Medication Summary Completed 05/04/2013 Appointment: Belia Reid WPtel: [address] [place], [place] [phone] US INJECTION 04/17/2013 Patient Education: Patient Medication Summary Completed 04/17/2013 Appointment: Belia Reid WPtel: [address] [place], [place] [phone] US INJECTION 04/15/2013 Appointment: Belia Reid WPtel: [address] [place], [place] [phone] 04/02 vm FOLLOW UP 04/06/2013 Patient Education: Patient Medication Summary Completed 04/06/2013 Visit Plan: Obtain lab results including UA from [facility] 11/10/2012 Appointment: Belia Reid WPtel: [address] [place], [place] [phone] ER Follow UP 11/10/2012 Patient Education: Patient Medication Summary Completed 11/10/2012 Appointment: Belia Reid WPtel: [address] [place], [place] [phone] 10/30/12 patient canceled appt due to fin ances. Offered to work something out, patient declined-LB FOLLOW UP 11/05/2012 Visit Plan: Continue Bystolic at current dose Pt has fwup with Neurology on September 16 09/02/2012 Appointment: Belia Reid WPtel: [address] [place] [address] FOLLOW UP 09/02/2012 Patient Education: Patient Medication Summary Completed 09/02/2012 Visit Plan: Continue bystolic at 5mg chris ly Sees Neurology tomorrow Use oxygen at bedtime 08/04/2012 Appointment: Belia Reid WPtel: [address] [place] [address] FOLLOW UP 08/04/2012 Patient Education: Patient Medication Summary Completed 08/04/2012 Appointment: Belia Reid WPtel: [address] [place] [address] Hospital fwup for 07/21/12. merged appointments FOLLOW UP 07/24/2012 Visit Plan: Start Bystolic 5mg daily for tachycardia Fwup with neurology for further workup Overnight O2 sat 07/21/2012 Appointment: Belia Reid WPtel: [address] [place] [address] Hospital Follow Up 07/21/2012 Patient Education: Patient Medication Summary Completed 07/21/2012 Visit Plan: SVN with Albuterol QID Add A velox 400mg daily Notify if worsens or persists 07/02/2012 Appointment: Belia Reid WPtel: [address] [place] [address] ACUTE ILLNESS 07/02/2012 Patient Education: Patient Medication Summary Completed 07/02/2012 Appointment: Belia Reid WPtel: [address] [place], [place] [phone] INJECTION 06/25/2012 Patient Education: Patient Medication Summary Completed 06/25/2012 Appointment: Belia Reid WPtel: [address] [place], [place] [phone] FOLLOW UP 06/24/2012 Patient Education: Patient Medication Summary Completed 06/24/2012 Appointment: Belia Reid WPtel: [address] [place], [place] [phone] 05/19 left message FOLLOW UP 05/20/2012 Patient [...] TID 05/08/2012 Appointment: Belia Reid WPtel: [address] [place], [place] [id number] ACUTE ILLNESS 05/08/2012 Patient Education: Patient Medication Summary Completed 05/08/2012 Visit Plan: Continue current meds Contin ue lower dose on pain meds and Diazepam Still waiting on paperwork for botox for Migraines Will restart Neurontin at 600mg po q HS Pt going to stop Depakote due to can't afford 04/22/2012 Appointment: Belia Reid WPtel: [address] [place], [place] [phone] 04/21 Hospital Follow Up 04/22/2012 Patient Education: Patient Medication Summary Completed 04/22/2012 Visit Plan: Injection to shoulder as abo ve Continue current meds Has appointment with neurology on HAs in 02/13/2012 Appointment: Belia Reid WPtel: [address] [place], [place] [phone] Pt does not have $10 copay at [facility] t time - will bring it in next week. Kianna iqbal'ed this. - [place] FOLLOW UP 02/13/2012 Patient Education: Patient Medication Summary Completed 02/13/2012 Visit Plan: Proceed with headache specia list Change nexium to Protonix Phenergan to use prn Sumatriptan to use prn Pt still on Inderal 01/28/2012 Appointment: Belia Reid WPtel: [address] [place], [place] [phone] ER Follow UP 01/28/2012 Patient Education: Patient [...] sleep 12/26/2011 Appointment: Belia Reid WPtel: [address] [place], [place] [phone]t. confirmed FOLLOW UP 2 Patient Education: Patient Medication Summary Completed 12/26/2011 Appointment: Belia Reid WPtel: [address] [place], [place] [phone] [place] FOLLOW UP 11/14/2011 Patient Education: Patient Medication Summary Completed 11/14/2011 Appointment: Belia Reid WPtel: [address] [place], [place] [phone] 09/12/2011 Patient Education: Patient Medication Summary Completed 09/12/2011 Visit Plan: Supportive care Decrease Liseth catalino to 50mg q HS Decrease AM dose of Valium to 5mg q HS Use Endocet sparingly 08/15/2011 Appointment: Belia Reid WPtel: [address] [place], [place] [phone] ER Follow UP 08/15/2011 Patient Education: Patient Medication Summary Completed 08/15/2011 Appointment: Belia Reid WPtel: [address] [place], [place] [phone] [place] Spoke directly to patient yesterday and confirmed the appoin tment. cn ACUTE ILLNESS 08/09/2011 Patient Education: Patient Medication Summary Completed 08/09/2011 Appointment: Belia Reid WPtel: [address] [place], [place] [phone] Hospital Follow Up 07/03/2011 Patient Education: Patient Medication Summary Completed 07/03/2011 Appointment: Belia Reid WPtel: [address] [place], [place] [phone] FOLLOW UP 06/04/2011 Patient Education: Patient Medication Summary Completed 06/04/2011 Visit Plan: Pt. wants "allergy shot" but in fact wants steroid shot. Will take a break from "generic Zyrtec they are getting from [facility]" and try Singulair for 2 weeks. 05/03/2011 Appointment: Iraida Jones WPtel: [address] [place] [address] ACUTE ILLNESS 05/03/2011 Patient Education: Patient Medication Summary Completed 05/03/2011 Visit Plan: Neurontin 400mg q HS for 1we ek then 800mg q HS Decrease requip to 1mg q HS for 2wks then stop Fwup 2mos 04/05/2011 Appointment: Belia Reid WPtel: [address] [place], [place] [phone] FOLLOW UP 04/05/2011 Patient Education: Patient Medication Summary Completed 04/05/2011 Visit Plan: Trial of neurontin in 2wks C ontinue current meds for stomach Pt has procedure with Dr. Ortiz next week for stone removal 03/08/2011 Appointment: Belia Reid WPtel: [address] [place], [place] [phone] Hospital Follow Up 03/08/2011 Patient Education: Patient Medication Summary Completed 03/08/2011 Appointment: Belia Reid WPtel: [address] [place], [place] [phone] FOLLOW UP 02/19/2011 Visit Plan: reports increased [...] with Flagyl 01/24/2011 Appointment: Iraida Jones WPtel: [address] [place] [address] ACUTE ILLNESS 01/24/2011 Patient Education: Patient Medication Summary Completed 01/24/2011 Appointment: Belia Reid WPtel: [address] [place] [address] [place] FOLLOW UP 01/02/2011 Patient Education: Patient Medication Summary Completed 01/02/2011 Appointment: Belai Ried WPtel: [address] [place] [address] FOLLOW UP 12/12/2010 Appointment: Belia Reid WPtel: [address] [place] [address] ACUTE ILLNESS 12/07/2010 Patient Education: Patient Medication Summary Completed 12/07/2010 Visit Plan: Increase Buspar to 10mg po B ID 11/16/2010 Appointment: Belia Reid WPtel: [address] [place] [address] [place] FOLLOW UP 11/16/2010 Patient Education: Patient Medication Summary Completed 11/16/2010 Appointment: Iraida Jones WPtel: [address] [place] [address] ER Follow UP 11/02/2010 Patient Education: Patient Medication Summary Completed 11/02/2010 Visit Plan: Depo-Medrol/Kenalog given fo r allergies Add BuSpar for anxiety Oxycodone one p.o. q.i.d. for number 120 refilled 10/18/2010 Appointment: Belia Reid WPtel: [address] [place] [address] [place] FOLLOW UP 10/18/2010 Patient Education: Patient Medication Summary Completed 10/18/2010 Visit Plan: Continue current meds Discus sed epidurals for back vs PT--will proceed with epidurals to thoracolumbar region to see if helps with pain 09/19/2010 Appointment: Belia Reid WPtel: [address] [place] [address] FOLLOW UP 09/19/2010 Patient Education: Patient Medication Summary Completed 09/19/2010 Visit Plan: DC MS contin Check CT scan t horacic spine Fwup pending above results 09/06/2010 Appointment: Belia Reid WPtel: [address] [place] [address] FOLLOW UP 09/06/2010 Patient Education: Patient Medication Summary Completed 09/06/2010 Visit Plan: Continue current meds Restar t MS contin 15mg po BID and use oxycodone prn Use daily senokot-s 2 po BID 08/10/2010 Appointment: Belia Reid WPtel: [address] [place] [address] FOLLOW UP 08/10/2010 Patient Education: Patient Medication Summary Completed 08/10/2010 Visit Plan: Depomedrol/Kenalog given Pt sees ENT later this month Cont current meds Mammo scheduled 05/11/2010 Appointment: Belia Reid WPtel: [address] [place] [address] FOLLOW UP 05/11/2010 Patient Education: Patient Medication Summary Completed 05/11/2010 Appointment: Belia Reid WPtel: [address] [place], [place] [phone] [place] [address] 05/04/2010 Patient Education: Patient Medication Summary Completed 05/04/2010 Visit Plan: Pt sent to lab for UA 04/28/2010 Appointment: Belia Reid WPtel: [address] [place] [address] 04/28/2010 Patient Education: Patient Medication Summary Completed 04/28/2010 Visit Plan: Check CT angiogram of chest Restart Advair Use proair prn Cont current meds Fwup with Card as schedulec 04/06/2010 Appointment: Belia Reid WPtel: [address] [place], [place] [phone] [place] [address] Follow Up 04/06/2010 Patient Education: Patient Medication Summary Completed 04/06/2010 Visit Plan: Paperwork filled out for pow erchair Depomedrol/kenalog given Pt sees ENT in 2wks to assess nasal obstruction problems 02/09/2010 Appointment: Belia Reidtel: [address] [place], [place] [phone] 02/09/2010 Patient Education: Patient Medication Summary Completed 02/09/2010 Visit Plan: Change Elavil to Trazadone 1 50mg q HS Diflucan and nystatin for tinea cruris 01/05/2010 Appointment: Belia Reid WPtel: [address] [place] [address] FOLLOW UP 01/05/2010 Patient Education: Patient Medication Summary Completed 01/05/2010 Appointment: Belia Reid WPtel: [address] [place] [address] FOLLOW UP 12/07/2009 Patient Education: Patient Medication Summary Completed 12/07/2009 Appointment: Belia Reidtel: [address] [place] [address] FOLLOW UP 11/22/2009 Visit Plan: Cont current meds and await MRI results from Dr. Meadows's office and his final recommendations Will need to follow-up at later date on deviated septum 11/08/2009 Appointment: Belia Reid WPtel: [address] [place], [place] [phone] [place] FOLLOW UP 11/08/2009 Patient Education: Patient Medication Summary Completed 11/08/2009 Visit Plan: Cont PT/OT See Neurosurgery Cont Tortoise shell brace 10/24/2009 Appointment: Belia Reid WPtel: [address] [place], [place] [phone] FOLLOW UP 10/24/2009 Patient Education: Patient Medication Summary Completed 10/24/2009 Appointment: Belia Reid WPtel: [phone] [id number] Hospital Follow Up 10/17/2009 Appointment: Belia Reid WPtel: [address] [place], [place] [phone] ACUTE ILLNESS 07/25/2009 Patient Education: Patient Medication Summary Completed 07/25/2009 Appointment: Belia Reid WPtel: [address] [place], [place] [phone] 05/26/2009 Patient Education: Patient Medication Summary Completed 05/26/2009 Referral: Chino Balderas WPtel: [phone] [id number] [place] Referral Initiated Referral: Merry Vale WPtel: [facility] [id number] Vale will review referral and book appointment Completed Referral: Francisco Javier Yoder WPtel: [address] Patient needs EGD insurance will not inc rease a medication unless this procedure results show a need Completed Referral: Francisco Javier Yoder WPtel: [address] [id number] [place] Referral Historical Reference Referral: Francisco Javier Yoder WPtel: [address] [place] [address] [place] Referral Initiated Instructions Comment . Xrays [...] last date of carotid doppler from her quantitative strategy analyst and update if needed . Long discussion [...] from "generic Zyrtec they are getting from [facility]" and try Singulair for 2 weeks. . [...]
[2019-06-24 16:20] LABS: ALKALINE PHOSPHATASE 98 U/L (40-136); CREATININE SERUM 0.88 MG/DL (0.60-1.30); GFR ESTIMATED > 60
[2019-06-24 16:21] LABS: BUN/CREATININE RATIO 9
--- OUTSIDE RECORDS SUMMARY | 2019-06-24 16:21 | XMS REPORT | CCD ---
Author Author Diana Reid D.O. Organization [facility] Address [address] [place] [address] Phone Care Team Providers Care Teaching Dietitian Name Role Phone [facility] D.O[facility] PP Unavailable CCM Unavailable Summary Purpose Interface Exchange Insurance Providers Payer name Policy type / Coverage type Covered constitution party ID Effective Begin Date Effective End Date [employer] MEDICARE Medicare Part B [id number] 2019 Unknown Family History Family History data not found Social History Social History Element Codes Description Effective Dates Tobacco history SNOMED CT: 837811098 Nonsmoker 09/13/2010 Allergies, Adverse Reactions, Alerts Substance Reaction Codes Entered Date Inactivated Date Status Eggs reaction [id number] 09/15/2015 No Inactive Date Active _ Unknown [...] Fill Instructions Levaquin 500 mg tablet RxNorm: 974457 1 Tablet(s) Oral QD 06/16/2019 06/23/2019 Inactive Flagyl 500 mg tablet RxNorm: 272341 1 Tablet(s) Oral three time s a day 06/16/2019 06/23/2019 Inactive Vancocin 125 mg capsule RxNorm: 264639 1 Capsule(s) Oral four t imes a day 06/08/2019 06/18/2019 Inactive diltiazem CD 240 mg capsule,extended release 24 hr RxNorm: 8 74260 1 Capsule(s) Oral QD 05/26/2019 11/21/2019 Active omeprazole 40 mg capsule,delayed release RxNorm: 207574 1 Capsule(s) Oral two times a day 05/26/2019 11/21/2019 Active Flagyl 500 mg tablet RxNorm: 411746 1 Tablet(s) Oral three time s a day 05/26/2019 06/05/2019 Inactive Cipro 250 mg tablet RxNorm: 018638 1 Tablet(s) Oral two times a day 05/26/2019 06/02/2019 Inactive hydroxyzine HCl 25 mg tablet RxNorm: 225690 1 Tablet(s) Oral QPM for itching/aniety 05/21/2019 06/27/2019 Active metoprolol tartrate 25 mg tablet RxNorm: 581934 1 Table t(s) Oral two times a day 05/21/2019 08/19/2019 Active hydroxyzine HCl 25 mg tablet RxNorm: 506853 1 Tablet(s) Oral QPM for itching/aniety 05/13/2019 05/20/2019 Inactive Singulair 10 mg tablet RxNorm: 852660 1 Tablet(s) Oral QPM 05/06/19 20 05/12/2019 Inactive gabapentin 600 mg tablet RxNorm: 556626 1 Tablet(s) Oral QD 020 06/05/2019 Inactive Valium 5 mg tablet RxNorm: 910501 1 Tablet(s) Oral QPM for stri joao/muscle spasm 04/29/2019 05/29/2019 Inactive baclofen 10 mg tablet RxNorm: 103824 1 Tablet(s) Oral QPM for s pasm/neck pain 04/24/2019 05/23/2019 Inactive baclofen 10 mg tablet RxNorm: 536612 1 Tablet(s) Oral QPM for s pasm/neck pain 04/24/2019 04/23/2019 Inactive Novolin N NPH U-100 Insulin isophane 100 unit/mL subcu taneous susp RxNorm: 483363 23 Unit(s) Subcutaneous two times a day 04/20/2019 No Stop Date A ctive cyclobenzaprine 5 mg tablet RxNorm: 183308 1 Tablet(s) Oral three times a day as needed 04/16/2019 04/23/2019 Inactive hydroxyzine HCl 25 mg tablet RxNorm: 698495 1 Tablet(s) Oral three times a day for itching/aniety 04/08/2019 05/12/2019 Inactive gabapentin 600 mg tablet RxNorm: 396481 1 Tablet(s) Oral two ti mes a day 04/08/2019 05/05/2019 Inactive gabapentin 600 mg tablet RxNorm: 111206 1 Tablet(s) Oral two ti mes a day 04/08/2019 04/07/2019 Inactive Novolin N NPH U-100 Insulin isophane 100 unit/mL subcu taneous susp RxNorm: 678615 10 Unit(s) Subcutaneous two times a day 03/03/2019 04/19/2019 I nactive gabapentin 300 mg capsule RxNorm: 465670 1 Capsule(s) O ral every night at bedtime for neuropathy 02/26/2019 04/07/2019 Inactive gabapentin 300 mg capsule RxNorm: 215616 1 Capsule(s) O ral every night at bedtime for neuropathy 02/20/2019 02/25/2019 Inactive pramipexole 1 mg tablet RxNorm: 104302 1 Tablet(s) Oral QPM FOR RESTLESS LEGS (REPLACES REQUIP) 02/12/2019 02/07/2020 Active buspirone 5 mg tablet RxNorm: 331213 TAKE 1 TABLET THREE TIMES MILDRED Y 02/12/2019 05/12/2019 Inactive Lexapro 10 mg tablet RxNorm: 567509 TAKE 1 TABLET EVERY DAY FOR MOO D 01/31/2019 No Stop Date Active Ativan 0.5 mg tablet RxNorm: 908926 TAKE 1 TABLET BY [facility] THREE TIMES DAILY NEEDED FOR ANXIETY 01/26/2019 04/28/2019 Inactive Ativan 0.5 mg tablet RxNorm: 639780 TAKE 1 TABLET BY [facility] THREE TIMES DAILY NEEDED FOR ANXIETY 01/05/2019 01/05/2019 Inactive Levaquin 500 mg tablet RxNorm: 455524 1 Tablet(s) Oral QD 12/25/2018 12/24/2018 Inactive Levaquin 500 mg tablet RxNorm: 289289 1 Tablet(s) Oral QD 12/25/2018 01/04/2019 Inactive baclofen 10 mg tablet RxNorm: 629324 1 Tablet(s) Oral three maico es a day 11/20/2018 01/19/2019 Inactive Ativan 0.5 mg tablet RxNorm: 743828 TAKE 1 TABLET BY [facility] THREE TIMES DAILY NEEDED FOR ANXIETY 11/20/2018 01/04/2019 Inactive gabapentin 300 mg capsule RxNorm: 025444 1 Capsule(s) O ral every night at bedtime for neuropathy 11/20/2018 12/20/2018 Inactive Lexapro 10 mg tablet RxNorm: 156112 1 Tablet(s) PO QD for mood 07/201801/30/2019 Inactive Zithromax Z-Lj 250 mg tablet RxNorm: 596229 Tablet(s) PO take as directed 11/04/2018 11/19/2018 Inactive Insulin Syringe 1 mL 29 gauge x 1/2" RxNorm: 2 s yringes daily with insulin Dx: E11.65 10/08/2018 No Stop Date Active gabapentin 300 mg capsule RxNorm: 832705 1 Capsule(s) PO QHS fo r neuropathy 09/18/2018 10/17/2018 Inactive cyclobenzaprine 5 mg tablet RxNorm: 753763 1 Tablet(s) PO TID a s needed 09/09/2018 09/08/2018 Inactive cyclobenzaprine 5 mg tablet RxNorm: 625349 1 Tablet(s) PO TID a s needed 09/09/2018 10/08/2018 Inactive prednisone 20 mg tablet RxNorm: 931463 1 Tablet(s) PO QD 09/08/2018 0 09/12/2018 Inactive Lantus Solostar U-100 Insulin 100 unit/mL (3 mL) subcu taneous pen RxNorm: 133635 55 Unit(s) SQ QAM 08/28/2018 11/03/2018 Inactive hydroxyzine HCl 25 mg tablet RxNorm: 877862 1 Tablet(s) PO QHS for itching 08/20/2018 05/12/2019 Inactive Lexapro 10 mg tablet RxNorm: 442164 1 Tablet(s) PO QD for mood 08/0210/18/2018 Inactive sumatriptan 100 mg tablet RxNorm: 068166 1 Tablet(s) PO at headache onset. May repeat 1 in two hours if headache remains. Max of 2 per 24 hours 04/02/2018 05/20/2018 Inactive Diflucan 150 mg tablet RxNorm: 308080 1 Tablet(s) PO QD 03/18/2018 Inactive Diflucan 150 mg tablet RxNorm: 194610 1 Tablet(s) PO QD 03/18/2018 Inactive Flagyl 500 mg tablet RxNorm: 405085 1 Tablet(s) PO TID 03/17/2018 Inactive Levaquin 500 mg tablet RxNorm: 627735 1 Tablet(s) PO QD 03/17/2018 Inactive Levaquin 500 mg tablet RxNorm: 126091 1 Tablet(s) PO QD 03/17/2018 Inactive Flagyl 500 mg tablet RxNorm: 240339 1 Tablet(s) PO TID 03/17/2018 Inactive ketoconazole 200 mg tablet RxNorm: 131989 1 Tablet(s) PO QD 019 03/19/2018 Inactive Celebrex 200 mg capsule RxNorm: 081409 1 Capsule(s) PO BID 02/06/20 18 05/20/2018 Inactive tramadol 50 mg tablet RxNorm: 348919 1 Tablet(s) PO TID as needed 1 04/08/2017 05/20/2018 Inactive gabapentin 300 mg capsule RxNorm: 271195 1 Capsule(s) PO BID 201705/20/2018 Inactive Diflucan 150 mg tablet RxNorm: 207421 1 Tablet(s) PO QD 01/20/2018 Inactive pramipexole 1 mg tablet RxNorm: 633835 1 Tablet(s) PO Q PM FOR RESTLESS LEGS (REPLACES REQUIP) 01/08/2018 02/11/2019 Inactive cyclobenzaprine 10 mg tablet RxNorm: 192685 1 Tablet(s) PO TID as needed for muscle spasm 12/17/2017 05/20/2018 Inactive pramipexole 1 mg tablet RxNorm: 165385 TAKE 1 TABLET BY MOUTH ONCE DAILY IN THE EVENING FOR RESTLESS LEGS (REPLACES REQUIP) 12/04/2017 01/05/2018 Inac tive Amaryl 4 mg tablet RxNorm: 525109 1 Tablet(s) PO BID replaces 2mg 0 11/05/2017 12/16/2017 Inactive Singulair 10 mg tablet RxNorm: 898274 1 Tablet(s) PO QHS for al lergies/lungs 10/30/2017 12/16/2017 Inactive Diflucan 100 mg tablet RxNorm: 886866 1 Tablet(s) PO QD 10/23/2017 Inactive Ativan 0.5 mg tablet RxNorm: 551432 TAKE 1 TABLET BY MOUTH THRE E TIMES DAILY 08/30/2017 11/20/2018 Inactive buspirone 5 mg tablet RxNorm: 206172 1 Tablet(s) PO TID 07/11/2017 Inactive propranolol 60 mg tablet RxNorm: 057598 1 Tablet(s) PO BID repl aces 40mg dose 06/26/2017 12/16/2017 Inactive Amaryl 4 mg tablet RxNorm: 254981 1 Tablet(s) PO BID replaces 2mg 0 06/12/2017 11/05/2017 Inactive omeprazole 40 mg capsule,delayed release RxNorm: 930583 1 Capsule(s) PO BID TAKE ONE CAPSULE BY MOUTH TWICE DAILY 05/30/2017 11/25/2017 Inactive pramipexole 1 mg tablet RxNorm: 116068 1 Tablet(s) PO Q PM for restless legs--replaces requip 05/30/2017 11/25/2017 Inactive amitriptyline 50 mg tablet RxNorm: 514877 1 Tablet(s) PO QHS 201709/16/2017 Inactive Diflucan 100 mg tablet RxNorm: 097871 1 Tablet(s) PO BID 05/07/2017 0 05/20/2017 Inactive nystatin (bulk) 100 million unit powder RxNorm: Application TO P BID 05/07/2017 05/20/2018 Inactive cholestyramine (with sugar) 4 gram oral powder RxNorm: 966061 1 Unit Dose PO QD 05/07/2017 01/20/2018 Inactive Ativan 0.5 mg tablet RxNorm: 973528 TAKE ONE TABLET BY MOUTH TH REE TIMES DAILY 05/01/2017 09/02/2017 Inactive Trulicity 1.5 mg/0.5 mL subcutaneous pen injector RxNorm: 15 59424 1 Unit Dose SQ WEEKLY 02/22/2017 03/23/2017 Inactive doxycycline hyclate 100 mg capsule RxNorm: 6146468 1 Capsule(s) PO BID 01/23/2017 02/05/2017 Inactive Amaryl 4 mg tablet RxNorm: 951242 1 Tablet(s) PO BID replaces 2mg 1 03/25/2016 05/22/2017 Inactive magnesium oxide 400 mg capsule RxNorm: 646824 1 Capsule(s) PO QD 07/18/2017 Inactive Ativan 0.5 mg tablet RxNorm: 017865 TAKE ONE TABLET BY MOUTH TH REE TIMES DAILY 01/17/2017 05/01/2017 Inactive Amaryl 2 mg tablet RxNorm: 960380 1 Tablet(s) PO BID 12/27/201601/22 Inactive Amaryl 2 mg tablet RxNorm: 631781 1 Tablet(s) PO BID 12/26/201612/26 Inactive Ativan 0.5 mg tablet RxNorm: 367254 TAKE ONE TABLET BY MOUTH TH REE TIMES DAILY 12/05/2016 01/18/2017 Inactive pramipexole 1 mg tablet RxNorm: 583328 1 Tablet(s) PO Q PM for restless legs--replaces requip 11/26/2016 05/30/2017 Inactive Mobic 15 mg tablet RxNorm: 363138 1 Tablet(s) PO QD 10/08/20162016 Inactive cyclobenzaprine 5 mg tablet RxNorm: 614571 1/2- 1 Tablet(s) PO TID 10/08/2016 10/17/2016 Inactive Ativan 0.5 mg tablet RxNorm: 067153 1 Tablet(s) PO TID 09/20/201607/2016 Inactive amitriptyline 50 mg tablet RxNorm: 159267 1 Tablet(s) PO QHS 201605/30/2017 Inactive propranolol 60 mg tablet RxNorm: 959065 1 Tablet(s) PO BID repl aces 40mg dose 09/19/2016 06/26/2017 Inactive Ativan 0.5 mg tablet RxNorm: 816249 1 Tablet(s) PO TID 08/20/2016 Inactive omeprazole 40 mg capsule,delayed release RxNorm: 823022 1 Capsule(s) PO BID TAKE ONE CAPSULE BY MOUTH TWICE DAILY 08/20/2016 05/30/2017 Inactive amitriptyline 50 mg tablet RxNorm: 588701 1 Tablet(s) PO QHS 201609/18/2016 Inactive pramipexole 1 mg tablet RxNorm: 529478 1 Tablet(s) PO Q PM for restless legs--replaces requip 07/23/2016 11/25/2016 Inactive Amaryl 2 mg tablet RxNorm: 207963 1 Tablet(s) PO BID 07/23/201612/27 Inactive propranolol 40 mg tablet RxNorm: 652632 1 Tablet(s) PO BID 07/13/19 17 09/18/2016 Inactive Ativan 0.5 mg tablet RxNorm: 248133 1 Tablet(s) PO QID 06/19/2016 Inactive Amaryl 2 mg tablet RxNorm: 771511 1 Tablet(s) PO BID 06/19/201607/22 Inactive Ativan 0.5 mg tablet RxNorm: 937850 1 Tablet(s) PO QID 06/19/2016 Inactive buspirone 5 mg tablet RxNorm: 709728 1 Tablet(s) PO TID 06/19/2016 Inactive Ativan 0.5 mg tablet RxNorm: 712093 1 Tablet(s) PO BID 05/24/2016 Inactive buspirone 5 mg tablet RxNorm: 544715 1 Tablet(s) PO TID 05/23/2016 Inactive Macrobid 100 mg capsule RxNorm: 142160 1 Capsule(s) PO QOD 05/03/19 17 10/07/2016 Inactive pramipexole 1 mg tablet RxNorm: 550990 Tablet(s) 1 Tabl et(s) PO QPM for restless legs--replaces requip 04/26/2016 06/24/2016 Inactive propranolol 40 mg tablet RxNorm: 596250 TAKE ONE TABLET BY MOUT H TWICE DAILY 04/26/2016 06/24/2016 Inactive Detrol LA 4 mg capsule,extended release RxNorm: 444516 1 Capsul e(s) PO QHS 04/03/2016 05/02/2016 Inactive prednisone 20 mg tablet RxNorm: 894234 1 Tablet(s) PO QD 02/29/2016 0 03/04/2016 Inactive Actos 30 mg tablet RxNorm: 043873 TAKE ONE TABLET BY MOUTH ONCE DAILY 02/27/2016 12/19/2016 Inactive clindamycin 300 mg capsule RxNorm: 375731 1 Capsule(s) PO TID 02/0102/08/2016 Inactive Flagyl 500 mg tablet RxNorm: 031824 1 Tablet(s) PO BID 02/02/201609/2015 Inactive omeprazole 40 mg capsule,delayed release RxNorm: 042144 TAKE ONE CAPSULE BY MOUTH TWICE DAILY 01/15/2016 07/12/2016 Inactive gabapentin 300 mg capsule RxNorm: 961993 1 Capsule(s) PO QAM an d 2 po q HS 01/05/2016 06/18/2016 Inactive gabapentin 300 mg capsule RxNorm: 816609 1 Capsule(s) P O BID 1 Capsule(s) PO QHS 12/05/2015 01/04/2016 Inactive cyclobenzaprine 10 mg tablet RxNorm: 250662 1 Tablet(s) PO TID for spasm as needed for muscle spasm 12/05/2015 06/18/2016 Inactive ciprofloxacin 250 mg tablet RxNorm: 621636 1 Tablet(s) PO BID 12/0412/14/2015 Inactive pramipexole 1 mg tablet RxNorm: 975562 Tablet(s) 1 Tabl et(s) PO QPM for restless legs--replaces requip 11/07/2015 11/26/2016 Inactive Januvia 100 mg tablet RxNorm: 929205 1 Tablet(s) PO QD 10/26/201504/2015 Inactive propranolol 40 mg tablet RxNorm: 735965 TAKE ONE TABLET BY MOUT H TWICE DAILY 10/25/2015 04/21/2016 Inactive gabapentin 300 mg capsule RxNorm: 225843 1 Capsule(s) PO QHS 201512/04/2015 Inactive Cipro 500 mg tablet RxNorm: 137082 1 Tablet(s) PO BID 10/05/201511/2015 Inactive pramipexole 1 mg tablet RxNorm: 876491 Tablet(s) 1 Tabl et(s) PO QPM for restless legs--replaces requip 10/04/2015 11/02/2015 Inactive propranolol 40 mg tablet RxNorm: 009998 TAKE ONE TABLET BY MOUT H TWICE DAILY 09/26/2015 10/24/2015 Inactive Amaryl 2 mg tablet RxNorm: 618492 1 Tablet(s) PO QD 09/15/20152016 Inactive gabapentin 300 mg capsule RxNorm: 946293 1 Capsule(s) PO QHS 201510/14/2015 Inactive buspirone 5 mg tablet RxNorm: 349937 1 Tablet(s) PO TID 09/15/2015 Inactive pramipexole 1 mg tablet RxNorm: 912871 Tablet(s) 1 Tabl et(s) PO QPM for restless legs--replaces requip 09/08/2015 10/03/2015 Inactive pramipexole 1 mg tablet RxNorm: 381357 1 Tablet(s) PO Q PM for restless legs--replaces requip 08/08/2015 09/08/2015 Inactive Amaryl 2 mg tablet RxNorm: 419247 1 Tablet(s) PO QD 07/07/20152015 Inactive pramipexole 1 mg tablet RxNorm: 522382 1 Tablet(s) PO Q PM for restless legs--replaces requip 07/05/2015 08/03/2015 Inactive ropinirole 2 mg tablet RxNorm: 935601 TAKE ONE TABLET BY MOUTH TWICE DAILY 05/09/2015 09/14/2015 Inactive Diflucan 100 mg tablet RxNorm: 523635 1 Tablet(s) PO QD 03/30/2015 Inactive propranolol 40 mg tablet RxNorm: 627588 1 Tablet(s) PO BID 02/24/20 15 08/21/2015 Inactive [SAVINGS FOR UNINSURED PATIE NTS -- BIN:820180, PCN: ASPROD1, Group: AME08, ID# [id number], Process claim through muzu [employer], for questions: . THIS IS NOT INSURANCE.] Flagyl 500 mg tablet RxNorm: 362652 1 Tablet(s) PO BID 02/03/201502/2015 Inactive Cipro 500 mg tablet RxNorm: 340124 1 Tablet(s) PO BID 02/03/201502/01 Inactive Carafate 1 gram tablet RxNorm: 300113 1 Tablet(s) PO QID make i nto slurry 02/03/2015 09/14/2015 Inactive ondansetron HCl 4 mg tablet RxNorm: 936802 1 Tablet(s) PO Q4H as needed for nausea 12/29/2014 01/04/2016 Inactive Diflucan 100 mg tablet RxNorm: 649551 1 Tablet(s) PO QD 12/29/2014 Inactive Keflex 500 mg capsule RxNorm: 570284 1 Capsule(s) PO TID 12/29/2014 1 03/09/2014 Inactive omeprazole 40 mg capsule,delayed release RxNorm: 861692 1 Capsu le(s) PO BID 12/27/2014 12/21/2015 Inactive [SAVINGS FOR UNINSUR ED PATIENTS -- BIN:260914, PCN: ASPROD1, Group: AME08, ID# [id number], Process claim through [employer], for questions: . THIS IS NOT INSURANCE.] ropinirole 2 mg tablet RxNorm: 028296 1 Tablet(s) PO BID 09/29/2014 0 03/27/2015 Inactive [SAVINGS FOR UNINSURED PATIENTS -- BIN:0 40314, PCN: ASPROD1, Group: AME08, ID# [id number], Process claim through [facility], for questions: . THIS IS NOT INSURANCE.] buspirone 5 mg tablet RxNorm: 663246 1 Tablet(s) PO TID 09/17/2014 Inactive ropinirole 2 mg tablet RxNorm: 073345 1 Tablet(s) PO BID 09/02/2014 0 09/28/2014 Inactive [SAVINGS FOR UNINSURED PATIENTS -- BIN:0 36607, PCN: ASPROD1, Group: AME08, ID# [id number], Process claim through [employer], for questions: . THIS IS NOT INSURANCE.] Zyrtec 10 mg tablet RxNorm: 5962819 1 Tablet(s) PO QD 09/02/201412/02 Inactive propranolol 40 mg tablet RxNorm: 695213 1 Tablet(s) PO BID 07/21/19 15 02/23/2015 Inactive [SAVINGS FOR UNINSURED PATIE NTS -- BIN:072084, PCN: ASPROD1, Group: AME08, ID# [id number], Process claim through [employer], for questions: . THIS IS NOT INSURANCE.] ropinirole 2 mg tablet RxNorm: 664823 1 Tablet(s) PO QHS 05/14/2014 0 09/01/2014 Inactive [SAVINGS FOR UNINSURED PATIENTS -- BIN:0 15650, PCN: ASPROD1, Group: AME08, ID# [id number], Process claim through [employer], for questions: . THIS IS NOT INSURANCE.] cyclobenzaprine 10 mg tablet RxNorm: 481781 1 Tablet(s) PO QHS for spasm 04/06/2014 09/01/2014 Inactive ipratropium-albuterol 0.5 mg-3 mg(2.5 mg base)/3 mL ne bulization soln RxNorm: 0190331 1 Unit Dose INH Q4H 03/16/2014 No Stop Date Active [SAVINGS FOR UNINSURED PATIENTS -- BIN:382014, PCN: ASPROD1, Group: AME08, ID# [id number], Process claim through [employer], for questions: . THIS IS NOT INSURANCE.] prednisone 20 mg tablet RxNorm: 656513 1 Tablet(s) PO BID 03/09/2014 03/15/2014 Inactive [SAVINGS FOR UNINSURED PATIENTS -- BIN:0 89849, PCN: ASPROD1, Group: AME08, ID# [id number], Process claim through [employer], for questions: . THIS IS NOT INSURANCE.] ipratropium-albuterol 0.5 mg-3 mg(2.5 mg base)/3 mL ne bulization soln RxNorm: 6941038 1 Unit Dose INH Q4H 03/09/2014 03/15/2014 Inactive [SAVINGS FOR UNINSURED PATIENTS -- BIN:560897, PCN: ASPROD1, Group: AME08, ID# [id number], Process claim through [employer], for questions: . THIS IS NOT INSURANCE.] Levaquin 500 mg tablet RxNorm: 190669 1 Tablet(s) PO QD 03/09/2014 Inactive [SAVINGS FOR UNINSURED PATIENTS -- BIN:0 34859, PCN: ASPROD1, Group: AME08, ID# [id number], Process claim through [employer], for questions: . THIS IS NOT INSURANCE.] Carafate 1 gram tablet RxNorm: 415506 1 Tablet(s) PO AC & HS ma ke into slurry 02/09/2014 09/01/2014 Inactive [SAVINGS FOR UNINSUR ED PATIENTS -- BIN:062972, PCN: ASPROD1, Group: AME08, ID# [id number], Process claim through [employer], for questions: . THIS IS NOT INSURANCE.] Fioricet 50 mg-300 mg-40 mg capsule RxNorm: 5917309 1-2 Capsule(s) PO Q4H as needed for headache --max of 6 a day 02/09/2014 09/01/2014 Inactive [SAVINGS FOR UNINSURED PATIENTS -- BIN:673167, PCN: ASPROD1, Group: AME08, ID# [id number], Process claim through [employer], for questions: . THIS IS NOT INSURANCE.] propranolol 40 mg tablet RxNorm: 668414 1 Tablet(s) PO BID 12/08/19 14 06/04/2014 Inactive [SAVINGS FOR UNINSURED PATIE NTS -- BIN:001392, PCN: ASPROD1, Group: AME08, ID# [id number], Process claim through [employer], for questions: . THIS IS NOT INSURANCE.] buspirone 5 mg tablet RxNorm: 204110 1 Tablet(s) PO TID 12/02/2013 Inactive omeprazole 40 mg capsule,delayed release RxNorm: 764231 1 Capsu le(s) PO BID 11/25/2013 11/19/2014 Inactive [SAVINGS FOR UNINSUR ED PATIENTS -- BIN:285823, PCN: ASPROD1, Group: AME08, ID# [id number], Process claim through [employer], for questions: . THIS IS NOT INSURANCE.] ropinirole 2 mg tablet RxNorm: 219623 1 Tablet(s) PO QHS 11/10/2013 0 05/08/2014 Inactive [SAVINGS FOR UNINSURED PATIENTS -- BIN:0 90336, PCN: ASPROD1, Group: AME08, ID# [id number], Process claim through [employer]Imp[employer], for questions: . THIS IS NOT INSURANCE.] Cipro 500 mg tablet RxNorm: 502586 1 Tablet(s) PO BID 10/21/201312/03 Inactive [SAVINGS FOR UNINSURED PATIENTS -- BIN:0 49494, PCN: ASPROD1, Group: AME08, ID# [id number], Process claim through [employer], for questions: . THIS IS NOT INSURANCE.] hydroxyzine HCl 25 mg tablet RxNorm: 081780 1 Tablet(s) PO Q4-6 H as needed 10/05/2013 01/04/2016 Inactive [SAVINGS FOR UNINSUR ED PATIENTS -- BIN:523246, PCN: ASPROD1, Group: AME08, ID# [id number], Process claim through MedImpact, for questions: . THIS IS NOT INSURANCE.] triamcinolone acetonide 0.1 % topical cream RxNorm: 5548144 Appl ication TOP BID 10/05/2013 09/01/2014 Inactive [SAVINGS FOR UNINSUR ED PATIENTS -- BIN:754616, PCN: ASPROD1, Group: AME08, ID# [id number], Process claim through [employer], for questions: . THIS IS NOT INSURANCE.] albuterol sulfate HFA 90 mcg/actuation aerosol inhaler RxNor m: 0665647 2 Puff(s) INH Q4H as needed for cough 10/01/2013 12/22/2013 Inactive [MAKSIM INGS FOR UNINSURED PATIENTS -- BIN:003341, PCN: ASPROD1, Group: AME08, ID# [id number], Process claim through Med[employer], for questions: . THIS IS NOT INSURANCE.] propranolol 40 mg tablet RxNorm: 192427 1 Tablet(s) PO BID 09/02/19 14 11/29/2013 Inactive [SAVINGS FOR UNINSURED PATIE NTS -- BIN:125407, PCN: ASPROD1, Group: AME08, ID# [id number], Process claim through Med[employer], for questions: . THIS IS NOT INSURANCE.] propranolol 40 mg tablet RxNorm: 544069 1 Tablet(s) PO BID 08/05/19 14 08/31/2013 Inactive [SAVINGS FOR UNINSURED PATIE NTS -- BIN:629251, PCN: ASPROD1, Group: AME08, ID# [id number], Process claim through [employer], for questions: . THIS IS NOT INSURANCE.] Toprol XL 50 mg tablet,extended release RxNorm: 292391 1 Tablet (s) PO QHS 07/23/2013 08/03/2013 Inactive Macrobid 100 mg capsule RxNorm: 670619 1 Capsule(s) PO BID 07/04/19 14 07/09/2013 Inactive Toprol XL 50 mg tablet,extended release RxNorm: 649224 1 Tablet (s) PO QHS 05/28/2013 06/26/2013 Inactive ciprofloxacin 500 mg tablet RxNorm: 886598 1 Tablet(s) PO BID 05/2706/02/2013 Inactive Bystolic 5 mg tablet RxNorm: 184712 1 Tablet(s) PO QD 05/27/201305/03 Inactive ropinirole 2 mg tablet RxNorm: 247183 1 Tablet(s) PO QHS 04/22/2013 0 11/09/2013 Inactive Cipro 250 mg tablet RxNorm: 859869 1 Tablet(s) PO BID 04/06/201311/2013 Inactive ropinirole 2 mg tablet RxNorm: 190572 1 Tablet(s) PO QHS 02/17/2013 0 04/21/2013 Inactive Amaryl 2 mg tablet RxNorm: 937023 1 Tablet(s) PO QAM 11/11/201211/10 Inactive Amaryl 2 mg tablet RxNorm: 714930 1 Tablet(s) PO QAM 11/11/201204/05 Inactive omeprazole 40 mg capsule,delayed release RxNorm: 219157 1 Capsu le(s) PO BID 08/14/2012 08/08/2013 Inactive Bystolic 5 mg tablet RxNorm: 252536 1 Tablet(s) PO QD 08/14/201205/03 Inactive propranolol 60 mg tablet RxNorm: 712522 Tablet(s) PO TAKE 1 TAB LET TWICE DAILY 08/01/2012 09/01/2012 Inactive Bystolic 5 mg tablet RxNorm: 499035 1 Tablet(s) PO QD 07/21/201207/02 Inactive Bystolic 5 mg tablet RxNorm: 377301 1 Tablet(s) PO QD 07/21/201207/03 Inactive Prilosec 40 mg capsule,delayed release RxNorm: 353939 1 Capsule (s) PO BID 06/24/2012 07/21/2012 Inactive buspirone 10 mg tablet RxNorm: 229761 1 Tablet(s) PO TID 05/08/2012 0 05/23/2016 Inactive Valium 10 mg tablet RxNorm: 391774 1 Tablet(s) PO BID 04/02/201207/03 Inactive Endocet 10 mg-325 mg tablet RxNorm: 9407209 1 Tablet(s) PO QID 03/0607/21/2012 Inactive as needed for severe pain Valium 10 mg tablet RxNorm: 678049 1 Tablet(s) PO BID 02/27/2012 No S top Date Active Endocet 10 mg-325 mg tablet RxNorm: 0891352 1 Tablet(s) PO QID 02/0203/27/2012 Inactive as needed for severe pain Endocet 10 mg-325 mg tablet RxNorm: 0797877 1 Tablet(s) PO QID 01/0302/26/2012 Inactive as needed for severe pain Valium 10 mg tablet RxNorm: 705861 1 Tablet(s) PO BID 01/29/2012 No S top Date Active Protonix 40 mg tablet,delayed release RxNorm: 781357 1 Tablet(s ) PO QD 01/28/2012 07/21/2012 Inactive metformin ER 500 mg tablet,extended release 24 hr RxNorm: 86 0977 1 Tablet(s) PO QD 12/26/2011 07/20/2012 Inactive Trazadone 150 mg Tablet RxNorm: 1 Tablet(s) PO QHS prn sleep 1 04/23/2012 Inactive Endocet 10 mg-325 mg tablet RxNorm: 8328870 1 Tablet(s) PO QID 12/0301/24/2012 Inactive as needed for severe pain Nexium 40 mg capsule,delayed release RxNorm: 205669 1 Capsule(s ) PO QD 12/26/2011 01/27/2012 Inactive Symbicort 160 mcg-4.5 mcg/actuation HFA Aerosol Inhaler RxNo rm: 1328926 2 Puff(s) INH BID 12/04/2011 07/21/2012 Inactive Endocet 10 mg-325 mg tablet RxNorm: 1127049 1 Tablet(s) PO QID 11/0312/25/2011 Inactive as needed for severe pain metformin ER 500 mg tablet,extended release 24 hr RxNorm: 86 0977 1 Tablet(s) PO QD 11/20/2011 12/19/2011 Inactive metformin ER 500 mg tablet,extended release 24 hr RxNorm: 86 0977 1 Tablet(s) PO QD 11/20/2011 11/19/2011 Inactive amitriptyline 100 mg tablet RxNorm: 002754 Tablet(s) PO QHS 1 a nd 1/2 tabs QHS 11/12/2011 11/13/2011 Inactive Valium 10 mg tablet RxNorm: 311834 1 Tablet(s) PO BID 11/09/2011 No S top Date Active Endocet 10 mg-325 mg tablet RxNorm: 7247096 1 Tablet(s) PO QID 10/0211/14/2011 Inactive as needed for severe pain Aricept 10 mg Tab RxNorm: 352424 1 Tablet(s) PO QD 10/05/2011 013 Inactive Valium 10 mg tablet RxNorm: 142223 1 Tablet(s) PO BID 10/05/2011 No S top Date Active Endocet 10 mg-325 mg Tab RxNorm: 0606444 1 Tablet(s) PO QID 012 10/09/2011 Inactive as needed for severe pain Aricept 10 mg Tab RxNorm: 171152 1 Tablet(s) PO QD 08/14/2011 Inactive Endocet 10 mg-325 mg Tab RxNorm: 4404373 1 Tablet(s) PO QID 012 08/31/2011 Inactive as needed for severe pain Valium 10 mg Tab RxNorm: 317460 1 Tablet(s) PO BID 08/02/2011 No Stop Date Active propranolol 60 mg tablet RxNorm: 492249 1 Tablet(s) PO BID 07/26/19 12 09/11/2011 Inactive amitriptyline 100 mg tablet RxNorm: 492651 Tablet(s) PO QHS 1 a nd /2 tabs QHS 06/20/2011 09/11/2011 Inactive buspirone 10 mg tablet RxNorm: 982393 1 Tablet(s) PO BID 06/18/2011 0 09/15/2011 Inactive propranolol 60 mg Tab RxNorm: 591142 1 Tablet(s) PO BID 06/18/2011 Inactive gabapentin 800 mg Tab RxNorm: 922862 1 Tablet(s) PO BID 06/18/2011 Inactive ropinirole 2 mg tablet RxNorm: 244154 1 Tablet(s) PO QHS 05/29/2011 0 08/26/2011 Inactive trimethoprim 100 mg Tab RxNorm: 328178 1 Tablet(s) PO QHS 05/29/2011 07/21/2012 Inactive Endocet 10 mg-325 mg Tab RxNorm: 2880566 1 Tablet(s) PO QID 012 2011 Inactive as needed for severe pain Valium 10 mg Tab RxNorm: 856458 1 Tablet(s) PO QHS N eed to take med as prescribed. this is a 40 day RX. No early fills. 05/17/2011 05/20/2018 Inactive propranolol 60 mg Tab RxNorm: 011521 1 Tablet(s) PO BID 04/16/2011 Inactive Neurontin 800 mg Tab RxNorm: 405902 1 Tablet(s) PO QHS 04/05/201103/2011 Inactive Endocet 10 mg-325 mg Tab RxNorm: 7246663 1 Tablet(s) PO QID 012 05/02/2011 Inactive as needed for severe pain oxycodone-acetaminophen 10 mg-325 mg tablet RxNorm: 7860792 1 Ta blet(s) PO Q4H 03/28/2011 05/19/2012 Inactive Valium 10 mg Tab RxNorm: 667333 1 Tablet(s) PO QHS 03/28/2011 012 Inactive buspirone 10 mg Tab RxNorm: 413099 1 Tablet(s) PO BID 03/27/201106/02 Inactive propranolol 60 mg Tab RxNorm: 755667 1 Tablet(s) PO BID 03/19/2011 Inactive Klor-Con M20 20 mEq Tab RxNorm: 9169974 1 Tablet(s) PO QD 03/19/2011 07/21/2012 Inactive Aricept 10 mg Tab RxNorm: 502730 1 Tablet(s) PO QD 02/27/2011 012 Inactive propranolol 60 mg Tab RxNorm: 434343 1 Tablet(s) PO BID 02/19/2011 Inactive omeprazole 40 mg capsule,delayed release RxNorm: 387811 1 Capsu le(s) PO BID 01/24/2011 05/23/2011 Inactive clindamycin 300 mg capsule RxNorm: 060272 1 Capsule(s) PO TID 01/2402/02/2011 Inactive propranolol 60 mg Tab RxNorm: 885569 1 Tablet(s) PO BID 01/22/2011 No Stop Date Active nystatin 100,000 unit/g Topical Cream RxNorm: 562257 Applicatio n TOP BID 01/15/2011 01/14/2011 Inactive to rash for 2-4 week s Diflucan 200 mg Tab RxNorm: 317344 1 Tablet(s) PO QD 01/15/201101/28 Inactive buspirone 10 mg Tab RxNorm: 364838 1 Tablet(s) PO BID 01/08/201103/05 Inactive Valium 10 mg Tab RxNorm: 093281 1 Tablet(s) PO QHS 01/05/2011 012 Inactive Diflucan 200 mg Tab RxNorm: 257970 1 Tablet(s) PO QD 01/01/201101/14 Inactive Diflucan 200 mg Tab RxNorm: 793879 1 Tablet(s) PO QD 12/18/201012/31 Inactive Valium 10 mg Tab RxNorm: 894292 1 Tablet(s) PO QHS 12/12/2010 011 Inactive Diflucan 200 mg Tab RxNorm: 817721 1 Tablet(s) PO QD 12/07/201012/18 Inactive Aricept 10 mg Tab RxNorm: 524414 1 Tablet(s) PO QD 11/20/2010 011 Inactive ropinirole 1 mg Tab RxNorm: 478686 1 Tablet(s) PO QHS 11/16/201005/03 Inactive enalapril maleate 5 mg Tab RxNorm: 177292 1 Tablet(s) PO QD 011 05/20/2018 Inactive buspirone 10 mg Tab RxNorm: 216114 1 Tablet(s) PO BID 11/16/201012/02 Inactive Valium 10 mg Tab RxNorm: 004769 1 Tablet(s) PO QHS 11/07/2010 011 Inactive Pyridium 100 mg Tab RxNorm: 5959173 1 Tablet(s) PO TID 11/02/201004/2010 Inactive Macrobid 100 mg Cap RxNorm: 0798746 1 Capsule(s) PO BID 11/02/2010 Inactive buspirone 10 mg Tab RxNorm: 501341 1 Tablet(s) PO QHS 10/18/201005/02 Inactive propranolol 60 mg Tab RxNorm: 882765 1 Tablet(s) PO BID 09/18/2010 Inactive Valium 10 mg Tab RxNorm: 797520 1 Tablet(s) PO QHS 09/05/2010 011 Inactive Aricept 10 mg Tab RxNorm: 452672 1 Tablet(s) PO QD 08/14/2010 011 Inactive Valium 10 mg Tab RxNorm: 830437 1 Tablet(s) PO QHS 06/26/2010 011 Inactive ropinirole 1 mg Tab RxNorm: 763965 1 Tablet(s) PO QHS 06/19/201010/02 Inactive omeprazole 40 mg Cap, delayed release RxNorm: 163751 1 Capsule( s) PO QD 06/07/2010 10/04/2010 Inactive Endocet 10 mg-325 mg Tab RxNorm: 1343038 1 Tablet(s) PO QID as needed for severe pain 06/07/2010 03/07/2011 Inactive Endocet 10 mg-325 mg Tab RxNorm: 9177273 1 Tablet(s) PO QID as needed for severe pain 05/04/2010 06/02/2010 Inactive Valium 10 mg Tab RxNorm: 353285 1 Tablet(s) PO QHS 05/01/2010 011 Inactive propranolol 60 mg Tab RxNorm: 960454 1 Tablet(s) PO BID 04/03/2010 Inactive Valium 10 mg Tab RxNorm: 569360 1 Tablet(s) PO QHS 03/28/2010 011 Inactive omeprazole 40 mg Cap, Delayed Release RxNorm: 984865 1 Capsule( s) PO QD 03/28/2010 06/06/2010 Inactive Endocet 10 mg-325 mg Tab RxNorm: 1277639 1 Tablet(s) PO QID prn ari n 03/27/2010 05/20/2018 Inactive Valium 10 mg Tab RxNorm: 124955 1 Tablet(s) PO QHS 02/20/2010 011 Inactive Diflucan 100 mg Tab RxNorm: 143389 1 Tablet(s) PO BID 01/23/201003/2009 Inactive Diflucan 100 mg Tab RxNorm: 214304 1 Tablet(s) PO BID 01/05/201001/02 Inactive Aricept 10 mg Tab RxNorm: 696932 1 Tablet(s) PO QD 12/01/2009 011 Inactive OxyContin 20 mg 12 hr Tab RxNorm: 7623061 1 Tablet(s) PO BID 200904/05/2010 Inactive oxycodone-acetaminophen 10 mg-325 mg Tab RxNorm: 8087160 1 Table t(s) PO Q4H 11/22/2009 11/26/2009 Inactive Phenergan 25 mg Tab RxNorm: 531694 1 Tablet(s) PO PRN MIGRAINE 11/0303/07/2011 Inactive Demerol 100 mg Tab RxNorm: 335734 1 Tablet(s) PO PRN MIGRAINE 11/2203/07/2011 Inactive Oxycodone-Acetaminophen 10 mg-325 mg Tab RxNorm: 2046207 1 Table t(s) PO Q4H 10/11/2009 10/15/2009 Inactive Percocet 10 mg-325 mg Tab RxNorm: 5212323 1 Tablet(s) PO Q4H 200910/24/2009 Inactive propranolol 60 mg Tab RxNorm: 153308 1 Tablet(s) PO BID 08/29/2009 Inactive Valium 10 mg Tab RxNorm: 549582 1 Tablet(s) PO QHS 08/16/2009 010 Inactive Keflex 500 mg Cap RxNorm: 698123 1 Capsule(s) PO BID 07/25/200907/31 Inactive Hydroxyzine 25 mg Tab RxNorm: 838952 1 Tablet(s) PO TID 07/25/2009 Inactive Prednisone 20 mg Tab RxNorm: 935208 1 Tablet(s) PO BID 07/25/2009 Inactive Demerol 100 mg Tab RxNorm: 236785 1 Tablet(s) PO PRN MIGRAINE 07/25 No Stop Date Active Ropinirole 1 mg Tab RxNorm: 477524 1 Tablet(s) PO HS 07/20/200902/14 Inactive Valium 10 mg Tab RxNorm: 721745 1 Tablet(s) PO QHS 07/18/2009 010 Inactive Endocet 10 mg-325 mg Tab RxNorm: 7299958 1 Tablet(s) PO TID 010 07/07/2009 Inactive Demerol 100 mg Tab RxNorm: 072116 1 Tablet(s) PO PRN MIGRAINE 06/08 No Stop Date Active Ropinirole 1 mg Tab RxNorm: 613888 1 Tablet(s) PO HS 05/16/200907/14 Inactive ipratropium-albuterol 0.5 mg-3 mg(2.5 mg base)/3 mL ne bulization soln RxNorm: 2162032 1 Unit Dose INH Q4H as needed No Start Date Active MagOx 400 mg (241.3 mg magnesium) tablet RxNorm: 663680 1 Table t(s) PO BID No Start Date Active Vitamin B12 1000mcg Tablet RxNorm: 1 Tablet(s) PO QD No Start Date Active Vitamin D3 5,000 unit tablet RxNorm: 565053 1 Tablet(s) PO QD No Star t Date Active Tylenol Arthritis Pain 650 mg tablet,extended release RxNorm : 4164479 1 Tablet(s) PO Q4H No Start Date Active Lotrimin AF 2 % topical powder RxNorm: 944071 1 Application TOP BID No Start Date Active enalapril maleate 5 mg Tab RxNorm: 814231 1 Tablet(s) PO QD No Star t Date 07/20/2012 Inactive Demerol 100 mg Tab RxNorm: 315351 Tablet(s) PO PRN MIGRAINE No Star t Date 06/02/2009 Inactive metformin 500 mg tablet RxNorm: 858171 1 Tablet(s) PO QD No Start D ate 04/05/2013 Inactive Breo Ellipta 100 mcg-25 mcg/dose powder for inhalation RxNor m: 4931158 1 Puff(s) INH BID No Start Date 01/04/2016 Inactive Mag-Oxide 400 mg Tab RxNorm: 829611 1 Tablet(s) PO QD No Start Date 0 07/21/2012 Inactive Cipro 500 mg Tab RxNorm: 726195 1 Tablet(s) PO QD No Start Date 04/05 Inactive Ativan 0.5 mg tablet RxNorm: 470864 1 Tablet(s) PO TID as needed No Start Date 05/06/2019 Inactive melatonin 3 mg tablet RxNorm: 151280 2 Tablet(s) PO QHS No Start Da te 08/19/2018 Inactive buspirone 10 mg Tab RxNorm: 774418 1 Tablet(s) PO QD No Start Date Inactive sucralfate 100 mg/mL Oral Susp RxNorm: 232133 2 Teaspoon(s) PO QID No Start Date 07/21/2012 Inactive hydrocodone 5 mg-acetaminophen 325 mg tablet RxNorm: 722549 1 Tablet(s) PO Q4H as needed No Start Date 08/19/2018 Inactive Amaryl 2 mg tablet RxNorm: 506245 1 Tablet(s) PO BID No Start Date Inactive OxyContin 20 mg 12 hr Tab RxNorm: 0619056 1 Tablet(s) PO BID No Sta rt Date 11/27/2009 Inactive propranolol 40 mg tablet RxNorm: 796683 1 Tablet(s) PO QID No Start Date 01/19/2018 Inactive Trazadone 150 mg Tablet RxNorm: 1-2 Tablet(s) PO QHS prn sleep No Start Date 08/09/2010 Inactive propranolol 60 mg Tab RxNorm: 777787 1/2 Tablet(s) PO BID No Start Date 01/21/2011 Inactive insulin NPH and regular human subcutaneous RxNorm: 7525125 subcu taneous No Start Date 11/20/2018 Inactive Ativan 0.5 mg tablet RxNorm: 257784 1 Tablet(s) PO QID No Start Date 06/18/2016 Inactive Vasotec 5 mg Tab RxNorm: 035091 1 Tablet(s) PO BID No Start Date 06/2011 Inactive Toprol XL 50 mg tablet,extended release RxNorm: 752990 1 Tablet (s) PO BID No Start Date 04/05/2013 Inactive Ativan 0.5 mg tablet RxNorm: 493440 1 Tablet(s) PO TID No Start Date 05/25/2016 Inactive Klor-Con M20 20 mEq Tab RxNorm: 6996649 1 Tablet(s) PO QD No Start Date 03/19/2011 Inactive sumatriptan 100 mg tablet RxNorm: 635082 1 Tablet(s) PO at headache onset--repeat in 2hrs if remains No Start Date 07/21/2012 Inactive propranolol 60 mg Tab RxNorm: 890136 1 Tablet(s) PO BID No Start Da te 08/28/2009 Inactive Cholestyramine Light 4 gram Oral Powder RxNorm: 2816086 1 Unit Dose PO QD in water No Start Date 07/21/2012 Inactive nystatin 100,000 unit/g Topical Powder RxNorm: 516712 Applicati on TOP BID No Start Date 07/21/2012 Inactive vitamin E81-yovkj acid sublingual RxNorm: sublingual No Start Date 07/05/2013 Inactive cyclobenzaprine 5 mg tablet RxNorm: 405065 1/2-1 Tablet (s) PO TID as needed for muscle spasm No Start Date 07/18/2017 Inactive tramadol 50 mg tablet RxNorm: 485477 2 Tablet(s) PO TID as need ed for pain No Start Date 09/01/2014 Inactive aspirin 81 mg Tab RxNorm: 600713 1 Tablet(s) PO QOD No Start Date 04/2013 Inactive Vitamin B12 1000mcg Tablet RxNorm: 1 Tablet(s) PO QD No Start Date 07/18/2017 Inactive cholestyramine (with sugar) 4 gram oral powder RxNorm: 07321 3 1 Unit(s) PO QD as needed No Start Date 05/20/2018 Inactive ProAir HFA 90 mcg/Actuation Aerosol Inhaler RxNorm: 205377 2 Puff(s) INH Q4H prn shortness of breath No Start Date 07/21/2012 Inactive pravastatin 10 mg Tab RxNorm: 293961 1 Tablet(s) PO QD No Start Date 07/21/2012 Inactive gabapentin 800 mg Tab RxNorm: 990561 1 Tablet(s) PO BID No Start Da te 06/03/2011 Inactive Endocet 10 mg-325 mg Tab RxNorm: 2504851 1 Tablet(s) PO TID No Star t Date 06/02/2009 Inactive Naproxen 500 mg Tab RxNorm: 797650 1 Tablet(s) PO BID No Start Date 0 04/05/2010 Inactive Valium 10 mg Tab RxNorm: 674705 1 Tablet(s) PO BID No Start Date 07/04 Inactive enalapril maleate 5 mg Tab RxNorm: 626924 1 Tablet(s) PO QD No Star t Date 11/15/2010 Inactive doxepin 10 mg capsule RxNorm: 3196754 2 Capsule(s) PO QHS No Start Date 09/17/2018 Inactive MS Contin 15 mg Tab RxNorm: 565238 1 Tablet(s) PO BID No Start Date 0 09/18/2010 Inactive buspirone 5 mg tablet RxNorm: 169925 1 Tablet(s) PO TID No Start Da te 12/01/2013 Inactive [place] 3 Fish Oil Cap RxNorm: 1 Capsule(s) PO QD No Start Date 07/03 Inactive enalapril maleate 5 mg Tab RxNorm: 681817 1/2 Tablet(s) PO QD No St art Date 03/07/2011 Inactive Lyrica 75 mg capsule RxNorm: 780855 1 Capsule(s) PO QHS No Start Da te 02/08/2014 Inactive Lopressor 100 mg tablet RxNorm: 139091 1 Tablet(s) PO BID No Start Date 06/08/2018 Inactive Lantus Solostar U-100 Insulin 100 unit/mL (3 mL) subcu taneous pen RxNorm: 042794 45 Unit(s) SQ QAM No Start Date 05/20/2018 Inactive aspirin 81 mg tablet RxNorm: 787128 1 Tablet(s) PO QD No Start Date 0 09/14/2015 Inactive diltiazem CD 240 mg capsule,extended release 24 hr RxNorm: 8 99690 1 Capsule(s) PO QD No Start Date 05/25/2019 Inactive insulin NPH isophane U-100 human subcutaneous RxNorm: 902126 beckwith bcutaneous No Start Date 04/20/2019 Inactive sumatriptan 100 mg tablet RxNorm: 032614 1 Tablet(s) PO at headache onset. May repeat 1 in two hours if headache remains. Max of 2 per 24 hours No Start Date 04/01/2018 Inactive gabapentin 300 mg capsule RxNorm: 756068 1 Capsule(s) PO QHS No Sta rt Date 02/04/2018 Inactive Topamax 25 mg Tab RxNorm: 871091 Oral No Start Date 03/07/2011 In active Senokot-S 8.6 mg-50 mg Tab RxNorm: 5667874 1 Tablet(s) PO QD No Sta rt Date 03/07/2011 Inactive metformin ER 500 mg 24 hr tablet,extended release RxNorm: 18 56430 1 Tablet(s) PO QD No Start Date 05/20/2018 Inactive Symbicort 80 mcg-4.5 mcg/actuation HFA Aerosol Inhaler RxNor m: 3663187 2 Puff(s) INH BID No Start Date 04/05/2013 Inactive metoprolol tartrate 25 mg tablet RxNorm: 791370 1 Tablet(s) PO BID No Start Date 05/20/2019 Inactive propranolol 60 mg Tab RxNorm: 323444 1/2 Tablet(s) PO BID No Start Date 07/21/2012 Inactive metformin ER 500 mg 24 hr tablet,extended release RxNorm: 18 30771 2 Tablet(s) PO QD No Start Date 12/16/2017 Inactive Insulin Syringe 1 mL 29 gauge x 1/2" RxNorm: 2 s yringes daily with insulin Dx: E11.65 No Start Date 10/07/2018 Inactive Amitriptyline 75 mg Tab RxNorm: 153106 1 Tablet(s) PO QHS No Start Date 10/23/2009 Inactive donepezil 10 mg Tab RxNorm: 429948 1 Tablet(s) PO QD No Start Date Inactive Lantus Solostar U-100 Insulin 100 unit/mL (3 mL) subcu taneous pen RxNorm: 059804 36 Unit(s) SQ QAM No Start Date 12/24/2017 Inactive Miacalcin 200 unit/Actuation Nasal [place] Aerosol RxNorm: 261 204 1 [place] NASAL QD Alternate nostrils each day No Start Date 04/05/2010 Inactive Amitriptyline 150 mg Tab RxNorm: 363275 1 Tablet(s) PO QHS No Start Date 01/04/2010 Inactive Bystolic 5 mg tablet RxNorm: 600828 1 Tablet(s) PO QD No Start Date 0 08/13/2012 Inactive Aricept 10 mg Tab RxNorm: 305205 1 Tablet(s) PO QD No Start Date 11/03 Inactive Lantus Solostar U-100 Insulin 100 unit/mL (3 mL) subcu taneous pen RxNorm: 907831 50 Unit(s) SQ QAM No Start Date 08/27/2018 Inactive albuterol sulfate 2.5 mg/3 mL (0.083 %) Neb Solution RxNorm: 844809 1 Unit Dose INH QID as needed No Start Date 08/23/2015 Inactive Symbicort 160 mcg-4.5 mcg/actuation HFA Aerosol Inhaler RxNo rm: 0198436 2 Puff(s) INH BID No Start Date 12/03/2011 Inactive Savella 50 mg Tab RxNorm: 582090 1 Tablet(s) PO BID No Start Date 04/2010 Inactive amitriptyline 100 mg Tab RxNorm: 120255 1 1/2 Tablet(s) PO QHS No S tart Date 06/19/2011 Inactive nystatin 100,000 unit/g Topical Cream RxNorm: 803375 Ap plication TOP BID to rash for 2-4 weeks No Start Date 01/14/2011 Inactive Trelegy Ellipta 100 mcg-62.5 mcg-25 mcg powder for inhalatio n RxNorm: 5804756 1 Puff(s) INH QD No Start Date 12/16/2017 Inactive Lyrica 150 mg capsule RxNorm: 865946 1 Capsule(s) PO QHS No Start D ate 12/04/2015 Inactive sennosides 8.6 mg tablet RxNorm: 636597 1 Tablet(s) PO BID No Start Date 09/07/2018 Inactive metformin ER 500 mg tablet,extended release 24 hr RxNorm: 86 0975 1 Tablet(s) PO QD No Start Date 10/22/2017 Inactive Fish Oil 1,000 mg Cap RxNorm: 1 Capsule(s) PO QD No Start Date 06/2011 Inactive Zyrtec 10 mg Tab RxNorm: 0264158 1 Tablet(s) PO QD No Start Date 07/03 Inactive albuterol sulfate HFA 90 mcg/actuation aerosol inhaler RxNor m: 6808274 2 Puff(s) INH Q4H as needed for cough No Start Date 09/30/2013 Inactive trazodone 150 mg tablet RxNorm: 142692 1 Tablet(s) PO QHS No Start Date 07/21/2012 Inactive Spiriva with HandiHaler 18 mcg & inhalation capsules RxNorm: 925697 1 Capsule(s) INH QD No Start Date 04/05/2013 Inactive Coreg 3.125 mg Tab RxNorm: 620473 1 Tablet(s) PO BID No Start Date Inactive Phenergan 25 mg Tab RxNorm: 763229 Tablet(s) PO PRN MIGRAINE No Sta rt Date 11/21/2009 Inactive Vitamin D 50,000 unit Cap RxNorm: 3960670 1 Capsule(s) PO QW No Sta rt Date 03/07/2011 Inactive Januvia 100 mg tablet RxNorm: 093845 1 Tablet(s) PO QD No Start Date 10/25/2015 Inactive Eliquis 5 mg tablet RxNorm: 2361558 1 Tablet(s) PO BID No Start Date 08/19/2018 Inactive Advair Diskus 500 mcg-50 mcg/Dose for Inhalation RxNorm: 225691 1 INH BID No Start Date 07/21/2012 Inactive Vitamin D3 5,000 unit tablet RxNorm: 251069 1 Tablet(s) PO QD No St art Date 07/18/2017 Inactive Amaryl 2 mg tablet RxNorm: 644288 1 Tablet(s) PO QD No Start Date 06/2015 Inactive Actos 30 mg tablet RxNorm: 897219 1 Tablet(s) PO QD No Start Date Inactive promethazine 25 mg tablet RxNorm: 049561 1 Tablet(s) PO Q4H prn N/V No Start Date 07/21/2012 Inactive ProAir HFA 90 mcg/actuation Aerosol Inhaler RxNorm: 725145 2 Puff(s) INH Q4H prn dyspnea No Start Date 07/21/2012 Inactive Dexilant 60 mg Capsule RxNorm: 093715 1 Capsule(s) PO QD No Start D ate 01/27/2012 Inactive Lantus Solostar U-100 Insulin 100 unit/mL (3 mL) subcu taneous pen RxNorm: 725289 38 Unit(s) SQ QAM No Start Date 05/20/2018 Inactive Valium 10 mg Tab RxNorm: 965784 1 Tablet(s) PO QHS AND PRN No Start Date 10/24/2009 Inactive ZOFRAN ODT 8 mg disintegrating tablet RxNorm: 781323 1 Tablet(s ) PO Q6H No Start [...] Date S ervice Location MICROALBUMIN URINE RANDOM 12060 MICRL MG/L 14.9 MG/L Unknown MICROALBUMIN URINE RANDOM 04214 XM.ALB/CRE 6.1 MG/GCR Unknown MICROALBUMIN URINE RANDOM 62593 CREAT MG/D 243 MG/DL Unknown MICROALBUMIN URINE RANDOM 87870 CRE/100 2.43 G/L 03/05 Unknown PROTEIN/CREAT URINE WITH RATIO 64650|63577 PROT R U 14 MG/D L 04/01/2014 Unknown PROTEIN/CREAT URINE WITH RATIO 93834|83585 CREAT R U 254 MG/ DL 04/01/2014 Unknown PROTEIN/CREAT URINE WITH RATIO 50573|75831 XRATIO P/C 55 MG/ G 04/01/2014 Unknown URINALYSIS 43945 PROTEIN UR NEG 04/28/2010 Unknown URINALYSIS 43979 HEMGLBN UR NEG 04/28/2010 Unknown URINALYSIS 36205 GLUCOSE UR NEG 04/28/2010 Unknown URINALYSIS 24596 KETONES UR NEG 04/28/2010 Unknown URINALYSIS 39609 PH U 5.5 04/28/2010 Unknown URINALYSIS 68933 SP GR U 1.025 04/28/2010 Unknown URINALYSIS 17201 BILRUBN UR NEG 04/28/2010 Unknown URINALYSIS 37581 LEUKO UR 2+ 04/28/2010 Unknown URINALYSIS 00347 NITRITE UR NEG 04/28/2010 Unknown MICR CUL? [id number] WBC/HPF 6-10 04/28/2010 Unknown MICR CUL? [id number] RBC/HPF 0-5 04/28/2010 Unknown MICR CUL? [id number] HYAL CAST 16-25 04/28/2010 Unknown MICR CUL? [id number] SP TO YOLIE? NO 04/28/2010 Unknown MICR CUL? [id number] APPEAR UR NORMAL 04/28/2010 Unknown MICR CUL? [id number] SQ EPI/LPF FEW 04/28/2010 Unknown Procedures Procedure Codes Date URINALYSIS NONAUTO W/O SCOPE CPT-4: 50156 04/16/2019 URINE CULTURE/ COLONY COUNT CPT-4: 43702 04/16/2019 CEFTRIAXONE SODIUM INJECTION CPT-4: J0696 04/16/2019 THER/PROPH/DIAG INJ SC/IM CPT-4: 26205 04/16/2019 DRAIN/INJECT JOINT/BURSA CPT-4: 95064 01/22/2019 TRIAMCINOLONE ACET INJ NOS CPT-4: J3301 01/22/2019 DEXAMETHASONE SODIUM PHOS CPT-4: J1100 01/22/2019 URINE CULTURE/ COLONY COUNT CPT-4: 94816 01/07/2019 URINALYSIS NONAUTO W/O SCOPE CPT-4: 84799 01/07/2019 CEFTRIAXONE SODIUM INJECTION CPT-4: J0696 01/07/2019 THER/PROPH/DIAG INJ SC/IM CPT-4: 43795 01/07/2019 FLU VACC PRSV FREE INC ANTIG 65 AND OLDER CPT-4: 04300 12/24/2018 FLU VACC PRSV FREE INC ANTIG 65 AND OLDER CPT-4: 94607 12/24/2018 ADMIN INFLUENZA VIRUS VAC CPT-4: G0008 12/24/2018 THER/PROPH/DIAG INJ SC/IM CPT-4: 27141 11/04/2018 KETOROLAC TROMETHAMINE INJ CPT-4: J1885 11/04/2018 PROMETHAZINE HCL INJECTION CPT-4: J2550 11/04/2018 PPPS, subseq visit CPT-4: G0439 09/18/2018 THER/PROPH/DIAG INJ SC/IM CPT-4: 27510 04/01/2018 KETOROLAC TROMETHAMINE INJ CPT-4: J1885 04/01/2018 PROMETHAZINE HCL INJECTION CPT-4: J2550 04/01/2018 URINE CULTURE/ COLONY COUNT CPT-4: 68920 03/17/2018 URINALYSIS NONAUTO W/O SCOPE CPT-4: 00778 03/17/2018 FLU VACC PRSV FREE INC ANTIG 65 AND OLDER CPT-4: 13168 12/17/2017 PNEUMOCOCCAL VACC 23 RANDALL IM CPT-4: 39331 12/17/2017 ADMIN INFLUENZA VIRUS VAC CPT-4: G0008 12/17/2017 ADMIN PNEUMOCOCCAL VACCINE CPT-4: G0009 12/17/2017 PPPS, subseq visit CPT-4: G0439 09/17/2017 THER/PROPH/DIAG INJ SC/IM CPT-4: 51332 08/26/2017 KETOROLAC TROMETHAMINE INJ CPT-4: J1885 08/26/2017 PROMETHAZINE HCL INJECTION CPT-4: J2550 08/26/2017 URINALYSIS NONAUTO W/O SCOPE CPT-4: 58562 07/19/2017 URINE CULTURE/ COLONY COUNT CPT-4: 48218 07/19/2017 CEFTRIAXONE SODIUM INJECTION CPT-4: J0696 07/19/2017 THER/PROPH/DIAG INJ SC/IM CPT-4: 70300 07/19/2017 THER/PROPH/DIAG INJ SC/IM CPT-4: 81169 07/19/2017 TRIAMCINOLONE ACET INJ NOS CPT-4: J3301 07/19/2017 PRESCRIP TRANSMIT VIA ERX SY CPT-4: G8553 05/07/2017 PRESCRIP TRANSMIT VIA ERX SY CPT-4: G8553 02/22/2017 PRESCRIP TRANSMIT VIA ERX SY CPT-4: G8553 01/23/2017 FLU VACC PRSV FREE INC ANTIG 65 AND OLDER CPT-4: 21872 12/20/2016 PNEUMOCOCCAL VACC 13 RANDALL IM CPT-4: 14445 12/20/2016 ADMIN INFLUENZA VIRUS VAC CPT-4: G0008 12/20/2016 ADMIN PNEUMOCOCCAL VACCINE CPT-4: G0009 12/20/2016 URINALYSIS NONAUTO W/O SCOPE CPT-4: 32720 10/08/2016 URINE CULTURE/ COLONY COUNT CPT-4: 48167 10/08/2016 PRESCRIP TRANSMIT VIA ERX SY CPT-4: G8553 10/08/2016 PRESCRIP TRANSMIT VIA ERX SY CPT-4: G8553 09/19/2016 PRESCRIP TRANSMIT VIA ERX SY CPT-4: G8553 08/20/2016 PRESCRIP TRANSMIT VIA ERX SY CPT-4: G8553 02/29/2016 KETOROLAC TROMETHAMINE INJ CPT-4: J1885 02/02/2016 THER/PROPH/DIAG INJ SC/IM CPT-4: 80588 02/02/2016 PROMETHAZINE HCL INJECTION CPT-4: J2550 02/02/2016 PRESCRIP TRANSMIT VIA ERX SY CPT-4: G8553 02/02/2016 FLU VACC PRSV FREE INC ANTIG 65 AND OLDER CPT-4: 02290 01/05/2016 PPPS, subseq visit CPT-4: G0439 01/05/2016 ADMIN INFLUENZA VIRUS VAC CPT-4: G0008 01/05/2016 URINE CULTURE/ COLONY COUNT CPT-4: 11737 12/05/2015 URINALYSIS NONAUTO W/O SCOPE CPT-4: 46421 12/05/2015 PRESCRIP TRANSMIT VIA ERX SY CPT-4: G8553 12/05/2015 PRESCRIP TRANSMIT VIA ERX SY CPT-4: G8553 10/26/2015 URINALYSIS NONAUTO W/O SCOPE CPT-4: 02055 10/05/2015 URINE CULTURE/ COLONY COUNT CPT-4: 06281 10/05/2015 PRESCRIP TRANSMIT VIA ERX SY CPT-4: G8553 10/05/2015 MD SERVICE REQUIRED FOR PMD CPT-4: G0372 09/15/2015 PRESCRIP TRANSMIT VIA ERX SY CPT-4: G8553 09/15/2015 SPECIAL REPORTS OR FORMS CPT-4: 41553 08/25/2015 PRESCRIP TRANSMIT VIA ERX SY CPT-4: G8553 07/05/2015 URINALYSIS NONAUTO W/O SCOPE CPT-4: 29586 03/30/2015 ASSAY, GLUCOSE, BLOOD QUANT CPT-4: 95560 03/30/2015 URINE CULTURE/ COLONY COUNT CPT-4: 11580 03/30/2015 PRESCRIP TRANSMIT VIA ERX SY CPT-4: G8553 03/30/2015 PRESCRIP TRANSMIT VIA ERX SY CPT-4: G8553 02/03/2015 FLU VACC PRSV FREE INC ANTIG 65 AND OLDER CPT-4: 17781 12/29/2014 ADMIN INFLUENZA VIRUS VAC CPT-4: G0008 12/29/2014 PRESCRIP TRANSMIT VIA ERX SY CPT-4: G8553 12/29/2014 PRESCRIP TRANSMIT VIA ERX SY CPT-4: G8553 09/02/2014 PROTEIN/CREAT URINE WITH RATIO CPT-4: 80342|[id number] 5 MICROALBUMIN QUANTITATIVE CPT-4: 06419 04/01/2014 PRESCRIP TRANSMIT VIA ERX SY CPT-4: G8553 03/16/2014 PRESCRIP TRANSMIT VIA ERX SY CPT-4: G8553 03/09/2014 THER/PROPH/DIAG INJ SC/IM CPT-4: 16207 03/01/2014 TRIAMCINOLONE ACET INJ NOS CPT-4: J3301 03/01/2014 PRESCRIP TRANSMIT VIA ERX SY CPT-4: G8553 02/09/2014 URINE CULTURE/ COLONY COUNT CPT-4: 98889 10/30/2013 URINALYSIS NONAUTO W/O SCOPE CPT-4: 78038 10/21/2013 URINE CULTURE/ COLONY COUNT CPT-4: 15556 10/21/2013 DESTRUCT PREMALG LESION (Cryosurgery) CPT-4: 43005 PRESCRIP TRANSMIT VIA ERX SY CPT-4: G8553 10/05/2013 URINALYSIS NONAUTO W/O SCOPE CPT-4: 21185 08/04/2013 URINE CULTURE/ COLONY COUNT CPT-4: 61726 08/04/2013 PRESCRIP TRANSMIT VIA ERX SY CPT-4: G8553 08/04/2013 THER/PROPH/DIAG INJ SC/IM CPT-4: 88338 07/13/2013 TRIAMCINOLONE ACET INJ NOS CPT-4: J3301 07/13/2013 PRESCRIP TRANSMIT VIA ERX SY CPT-4: G8553 05/27/2013 URINALYSIS NONAUTO W/O SCOPE CPT-4: 38309 05/25/2013 URINE CULTURE/ COLONY COUNT CPT-4: 12219 05/25/2013 THER/PROPH/DIAG INJ SC/IM CPT-4: 75662 05/04/2013 VITAMIN B12 INJECTION CPT-4: J3420 05/04/2013 THER/PROPH/DIAG INJ SC/IM CPT-4: 80804 04/17/2013 VITAMIN B12 INJECTION CPT-4: J3420 04/17/2013 THER/PROPH/DIAG INJ SC/IM CPT-4: 15028 04/17/2013 METHYLPREDNISOLONE 40 MG INJ CPT-4: J1030 04/17/2013 TRIAMCINOLONE ACET INJ NOS CPT-4: J3301 04/17/2013 URINALYSIS NONAUTO W/O SCOPE CPT-4: 86743 04/06/2013 URINE CULTURE/ COLONY COUNT CPT-4: 98268 04/06/2013 PRESCRIP TRANSMIT VIA ERX SY CPT-4: [id number] 04/06/2013 KETOROLAC TROMETHAMINE INJ CPT-4: J1885 06/25/2012 PROMETHAZINE HCL INJECTION CPT-4: J2550 06/25/2012 THER/PROPH/DIAG INJ SC/IM CPT-4: 16288 06/25/2012 THER/PROPH/DIAG INJ SC/IM CPT-4: 27734 06/24/2012 METHYLPREDNISOLONE 40 MG INJ CPT-4: J1030 06/24/2012 TRIAMCINOLONE ACET INJ NOS CPT-4: J3301 06/24/2012 URINE CULTURE/ COLONY COUNT CPT-4: 02538 06/24/2012 THER/PROPH/DIAG INJ SC/IM CPT-4: 06737 05/20/2012 KETOROLAC TROMETHAMINE INJ CPT-4: J1885 05/20/2012 THER/PROPH/DIAG INJ SC/IM CPT-4: 14200 05/20/2012 PROMETHAZINE HCL INJECTION CPT-4: J2550 05/20/2012 DRAIN/INJECT JOINT/BURSA CPT-4: 22802 02/13/2012 METHYLPREDNISOLONE 40 MG INJ CPT-4: J1030 02/13/2012 TRIAMCINOLONE ACET INJ NOS CPT-4: J3301 02/13/2012 THER/PROPH/DIAG INJ SC/IM CPT-4: 96771 11/14/2011 METHYLPREDNISOLONE 40 MG INJ CPT-4: J1030 11/14/2011 TRIAMCINOLONE ACET INJ NOS CPT-4: J3301 11/14/2011 THER/PROPH/DIAG INJ SC/IM CPT-4: 36689 09/12/2011 KETOROLAC TROMETHAMINE INJ CPT-4: J1885 09/12/2011 THER/PROPH/DIAG INJ SC/IM CPT-4: 25786 08/09/2011 METHYLPREDNISOLONE 40 MG INJ CPT-4: J1030 08/09/2011 TRIAMCINOLONE ACET INJ NOS CPT-4: J3301 08/09/2011 URINE CULTURE/ COLONY COUNT CPT-4: 13520 07/03/2011 URINE CULTURE/ COLONY COUNT CPT-4: 54692 06/04/2011 THER/PROPH/DIAG INJ SC/IM CPT-4: 40966 05/03/2011 METHYLPREDNISOLONE 40 MG INJ CPT-4: J1030 05/03/2011 TRIAMCINOLONE ACET INJ NOS CPT-4: J3301 05/03/2011 URINALYSIS NONAUTO W/O SCOPE CPT-4: 02735 01/24/2011 URINE CULTURE/ COLONY COUNT CPT-4: 69186 01/24/2011 FLUZONE, 5ML (Medicare) CPT-4: Q2038 01/02/2011 ADMIN INFLUENZA VIRUS VAC CPT-4: G0008 01/02/2011 ASSAY, GLUCOSE, BLOOD QUANT CPT-4: 13118 12/07/2010 URINE CULTURE/ COLONY COUNT CPT-4: 17682 11/02/2010 THER/PROPH/DIAG INJ SC/IM CPT-4: 03082 10/18/2010 METHYLPREDNISOLONE 40 MG INJ CPT-4: J1030 10/18/2010 TRIAMCINOLONE ACET INJ NOS CPT-4: J3301 10/18/2010 TRIAMCINOLONE ACET INJ NOS CPT-4: J3301 05/11/2010 METHYLPREDNISOLONE 40 MG INJ CPT-4: J1030 05/11/2010 THER/PROPH/DIAG INJ SC/IM CPT-4: 48461 05/11/2010 TRIAMCINOLONE ACET INJ NOS CPT-4: J3301 02/09/2010 METHYLPREDNISOLONE 40 MG INJ CPT-4: J1030 02/09/2010 THER/PROPH/DIAG INJ SC/IM CPT-4: 13292 02/09/2010 SERVICE REQUIRED FOR PMD CPT-4: G0372 02/09/2010 FLU VACCINE 3 YRS & > IM UP 64 CPT-4: 40589 0 PNEUMOCOCCAL VACC 23 RANDALL IM CPT-4: 75323 12/07/2009 ADMIN INFLUENZA VIRUS VAC CPT-4: G0008 12/07/2009 ADMIN PNEUMOCOCCAL VACCINE CPT-4: G0009 12/07/2009 TRIAMCINOLONE ACET INJ NOS CPT-4: J3301 05/26/2009 THER/PROPH/DIAG INJ SC/IM CPT-4: 50008 05/26/2009 METHYLPREDNISOLONE 80 MG INJ CPT-4: J1040 [...] 1: 114/72 Code: 8480-6 BMI: 37.8 Code: 68552-3 Heart Rate 1: 72 bpm Height: 5'3" [...] 1: 106/68 Code: 8480-6 BMI: 35.7 Code: 80589-8 Heart Rate 1: 72 bpm Height: 5'4" Respiratory Rate: 20 bpm SpO2: 98% Tempera ture: 36.7 (C) / 98.0 (F) Weight: 208 lbs 04/16/2018 Blood Pressure 1: 132/82 Code: 8480-6 BMI: 37.9 Code: 73704-2 Heart Rate 1: 72 bpm Height: 5'4" Respiratory Rate: 20 bpm SpO2: 96% Tempera ture: 37.1 (C) / 98.8 (F) Weight: 221 lbs 04/01/2018 Blood Pressure 1: 150/90 Code: 8480-6 Heart Rate 1: 72 bpm Respiratory Rate: 22 bpm SpO2: 95% Temperature: 36.4 (C) / 97.6 (F) We ight: 216 lbs 03/06/2018 Blood Pressure 1: 126/78 Code: 8480-6 BMI: 37.4 Code: 00856-2 Heart Rate 1: 68 bpm Height: 5'4" [...] ight: 222 lbs 12/25/2017 BMI: 37.8 Code: 36868-0 Heart Rate 1: 76 bpm Height: 5 '4" Respiratory Rate: 20 bpm SpO2: 96% Temperature: 37.3 (C) / 99.2 (F) Weight: 220 lbs 12/17/2017 Blood Pressure 1: 132/78 Code: 8480-6 BMI: 37.2 Code: 99533-4 Heart Rate 1: 88 bpm Height: 5'4" Respiratory Rate: 20 bpm SpO2: 96% Tempera ture: 37.3 (C) / 99.2 (F) Weight: 217 lbs 10/30/2017 Blood Pressure 1: 114/68 Code: 8480-6 BMI: 36.4 Code: 82072-4 Heart Rate 1: 72 bpm Height: 5'4" Respiratory Rate: 22 bpm SpO2: 96% Tempera ture: 36.8 (C) / 98.2 (F) Weight: 212 lbs 10/23/2017 Blood Pressure 1: 124/78 Code: 8480-6 Heart Rate 1: 72 bpm Respiratory Rate: 24 bpm SpO2: 94% Temperature: 36.6 (C) / 97.9 (F) We ight: 212 lbs 09/17/2017 Blood Pressure 1: 128/82 Code: 8480-6 BMI: 37.4 Code: 73336-3 Heart Rate 1: 72 bpm Height: 5'4" Respiratory Rate: 20 bpm SpO2: 96% Tempera ture: 37.0 (C) / 98.6 (F) Weight: 218 lbs 07/19/2017 Blood Pressure 1: 136/84 Code: 8480-6 BMI: 36.6 Code: 94454-2 Heart Rate 1: 88 bpm Height: 5'4" Respiratory Rate: 20 bpm SpO2: 97% Tempera ture: 36.7 (C) / 98.0 (F) Weight: 213 lbs 05/29/2017 Blood Pressure 1: 136/82 Code: 8480-6 BMI: 36.7 Code: 35946-3 Heart Rate 1: 72 bpm Height: 5'4" Respiratory Rate: 20 bpm SpO2: 97% Tempera ture: 36.9 (C) / 98.4 (F) Weight: 214 lbs 05/07/2017 Blood Pressure 1: 122/80 Code: 8480-6 BMI: 37.1 Code: 77100-7 Heart Rate 1: 80 bpm Height: 5'4" Respiratory Rate: 24 bpm SpO2: 96% Tempera ture: 36.1 (C) / 97.0 (F) Weight: 216 lbs 03/18/2017 BMI: 36.7 Code: 44111-3 Heart Rate 1: 80 bpm Height: 5 '4" Respiratory Rate: 22 bpm SpO2: 95% Temperature: 36.9 (C) / 98.4 (F) Weight: 214 lbs 02/27/2017 Blood Pressure 1: 146/94 Code: 8480-6 BMI: 36.6 Code: 94523-7 Heart Rate 1: 76 bpm Height: 5'4" Respiratory Rate: 22 bpm SpO2: 97% Tempera ture: 36.6 (C) / 97.9 (F) Weight: 213 lbs 02/22/2017 Blood Pressure 1: 126/90 Code: 8480-6 BMI: 36.4 Code: 17610-2 Heart Rate 1: 84 bpm Height: 5'4" Respiratory Rate: 22 bpm SpO2: 95% Tempera ture: 36.9 (C) / 98.4 (F) Weight: 212 lbs 01/23/2017 Blood Pressure 1: 146/82 Code: 8480-6 BMI: 37.6 Code: 42333-1 Heart Rate 1: 96 bpm Height: 5'4" Respiratory Rate: 20 bpm SpO2: 96% Tempera ture: 36.9 (C) / 98.4 (F) Weight: 219 lbs 12/20/2016 Blood Pressure 1: 126/70 Code: 8480-6 BMI: 37.2 Code: 85936-2 Heart Rate 1: 76 bpm Height: 5'4" Respiratory Rate: 22 bpm SpO2: 95% Tempera ture: 36.6 (C) / 97.8 (F) Weight: 217 lbs 10/08/2016 Blood Pressure 1: 128/82 Code: 8480-6 BMI: 36.9 Code: 61001-0 Heart Rate 1: 76 bpm Height: 5'4" Respiratory Rate: 20 bpm SpO2: 95% Tempera ture: 37.0 (C) / 98.6 (F) Weight: 215 lbs 09/19/2016 Blood Pressure 1: 144/78 Code: 8480-6 BMI: 37.8 Code: 84371-3 Heart Rate 1: 76 bpm Height: 5'4" Respiratory Rate: 22 bpm SpO2: 95% Tempera ture: 37.0 (C) / 98.6 (F) Weight: 220 lbs 08/20/2016 Blood Pressure 1: 140/86 Code: 8480-6 BMI: 37.4 Code: 33312-7 Heart Rate 1: 80 bpm Height: 5'4" Respiratory Rate: 20 bpm SpO2: 95% Tempera ture: 36.9 (C) / 98.4 (F) Weight: 218 lbs 06/19/2016 Blood Pressure 1: 124/78 Code: 8480-6 BMI: 37.8 Code: 20541-1 Heart Rate 1: 74 bpm Height: 5'4" Respiratory Rate: 24 bpm SpO2: 96% Tempera ture: 36.9 (C) / 98.4 (F) Weight: 220 lbs 06/04/2016 Blood Pressure 1: 12478 Code: 8480-6 BMI: 38.8 Code: 94542-4 Heart Rate 1: 72 bpm Height: 5'4" Respiratory Rate: 24 bpm SpO2: 95% Tempera ture: 36.8 (C) / 98.2 (F) Weight: 226 lbs 05/02/2016 Blood Pressure 1: 136/90 Code: 8480-6 BMI: 37.6 Code: 84736-8 Heart Rate 1: 72 bpm Height: 5'4" Respiratory Rate: 24 bpm SpO2: 96% Tempera ture: 36.9 (C) / 98.4 (F) Weight: 219 lbs 04/03/2016 Blood Pressure 1: 126/78 Code: 8480-6 BMI: 38.1 Code: 46012-3 Heart Rate 1: 72 bpm Height: 5'4" Respiratory Rate: 22 bpm SpO2: 94% Tempera ture: 36.9 (C) / 98.4 (F) Weight: 222 lbs 02/29/2016 Blood Pressure 1: 132/78 Code: 8480-6 Heart Rate 1: 78 bpm Height: Respiratory Rate: 24 bpm SpO2: 95% Temperature: 36.4 (C) / 97.6 (F) We ight: 02/02/2016 Blood Pressure 1: 124/78 Code: 8480-6 BMI: 37.6 Code: 41512-1 Heart Rate 1: 76 bpm Height: 5'4" Respiratory Rate: 20 bpm SpO2: 95% Tempera ture: 36.8 (C) / 98.2 (F) Weight: 219 lbs 01/05/2016 Blood Pressure 1: 126/70 Code: 8480-6 BMI: 37.1 Code: 76198-9 Heart Rate 1: 76 bpm Height: 5'4" Respiratory Rate: 20 bpm Temperature: 36 .6 (C) / 97.8 (F) Weight: 216 lbs 12/05/2015 Blood Pressure 1: 126/72 Code: 8480-6 BMI: 36.9 Code: 81762-1 Heart Rate 1: 92 bpm Height: 5'4" Respiratory Rate: 20 bpm Temperature: 36 .7 (C) / 98.1 (F) Weight: 215 lbs 10/26/2015 Blood Pressure 1: 142/80 Code: 8480-6 BMI: 36.4 Code: 08136-2 Heart Rate 1: 82 bpm Height: 5'4" Respiratory Rate: 24 bpm SpO2: 92% Tempera ture: 35.9 (C) / 96.7 (F) Weight: 212 lbs 10/05/2015 Blood Pressure 1: 136/82 Code: 8480-6 Heart Rate 1: 80 bpm Respiratory Rate: 18 bpm SpO2: 98% Temperature: 35.7 (C) / 96.3 (F) We ight: 214 lbs 09/15/2015 Blood Pressure 1: 116/80 Code: 8480-6 BMI: 34.6 Code: 59297-2 Heart Rate 1: 76 bpm Height: 5'6" Respiratory Rate: 20 bpm Temperature: 36 .6 (C) / 97.9 (F) Weight: 211 lbs 08/24/2015 Blood Pressure 1: 124/80 Code: 8480-6 BMI: 34.1 Code: 92421-3 Heart Rate 1: 68 bpm Height: 5'6" Respiratory Rate: 20 bpm Temperature: 36 .8 (C) / 98.3 (F) Weight: 208 lbs 07/05/2015 Blood Pressure 1: 114/78 Code: 8480-6 BMI: 33.9 Code: 19584-8 Heart Rate 1: 80 bpm Height: 5'6" Respiratory Rate: 20 bpm Temperature: 36 .6 (C) / 97.9 (F) Weight: 207 lbs 06/06/2015 Blood Pressure 1: 122/78 Code: 8480-6 BMI: 34.1 Code: 01859-3 Heart Rate 1: 76 bpm Height: 5'6" Respiratory Rate: 24 bpm SpO2: 96% Tempera ture: 36.4 (C) / 97.6 (F) Weight: 208 lbs 05/23/2015 Blood Pressure 1: 124/78 Code: 8480-6 Heart Rate 1: 76 bpm Respiratory Rate: 24 bpm SpO2: 93% Temperature: 36.8 (C) / 98.2 (F) We ight: 212 lbs 05/05/2015 Blood Pressure 1: 136/80 Code: 8480-6 BMI: 35.4 Code: 85022-4 Heart Rate 1: 76 bpm Height: 5'6" Respiratory Rate: 28 bpm Temperature: 37 .0 (C) / 98.6 (F) Weight: 216 lbs 03/30/2015 Blood Pressure 1: 132/86 Code: 8480-6 BMI: 35.2 Code: 92797-3 Heart Rate 1: 84 bpm Height: 5'6" Respiratory Rate: 24 bpm Temperature: 36 .7 (C) / 98.0 (F) Weight: 215 lbs 02/03/2015 Blood Pressure 1: 122/74 Code: 8480-6 BMI: 35.7 Code: 29215-2 Heart Rate 1: 84 bpm Height: 5'6" Respiratory Rate: 20 bpm Temperature: 36 .9 (C) / 98.5 (F) Weight: 218 lbs 12/29/2014 Blood Pressure 1: 132/80 Code: 8480-6 BMI: 35.1 Code: 81526-9 Heart Rate 1: 80 bpm Height: 5'6" Respiratory Rate: 20 bpm Temperature: 36 .6 (C) / 97.8 (F) Weight: 214 lbs 09/02/2014 Blood Pressure 1: 128/92 Code: 8480-6 BMI: 34.7 Code: 14522-5 Heart Rate 1: 84 bpm Height: 5'6" Respiratory Rate: 26 bpm Temperature: 36 .8 (C) / 98.2 (F) Weight: 212 lbs 08/25/2014 Blood Pressure 1: 124/80 Code: 8480-6 BMI: 34.7 Code: 58668-4 Heart Rate 1: 78 bpm Height: 5'6" Respiratory Rate: 22 bpm SpO2: 97% Tempera ture: 36.6 (C) / 97.8 (F) Weight: 212 lbs 04/01/2014 Blood Pressure 1: 142/84 Code: 8480-6 BMI: 34.4 Code: 89014-6 Heart Rate 1: 74 bpm Height: 5'5" Respiratory Rate: 20 bpm Temperature: 36 .4 (C) / 97.6 (F) Weight: 207 lbs 03/16/2014 Blood Pressure 1: 142/90 Code: 8480-6 BMI: 34.6 Code: 66891-2 Heart Rate 1: 76 bpm Height: 5'5" Respiratory Rate: 24 bpm Temperature: 36 .5 (C) / 97.7 (F) Weight: 208 lbs 03/09/2014 Blood Pressure 1: 116/70 Code: 8480-6 BMI: 35.3 Code: 02115-2 Heart Rate 1: 72 bpm Height: 5'5" [...] 1: 128/86 Code: 8480-6 BMI: 34.3 Code: 17177-5 Heart Rate 1: 84 bpm Height: 5'5" Respiratory Rate: 20 bpm Temperature: 36 .7 (C) / 98.0 (F) Weight: 206 lbs 12/23/2013 Blood Pressure 1: 122/70 Code: 8480-6 BMI: 34.3 Code: 09437-6 Heart Rate 1: 68 bpm Height: 5'5" Respiratory Rate: 20 bpm Temperature: 36 .8 (C) / 98.2 (F) Weight: 206 lbs 10/05/2013 Blood Pressure 1: 118/76 Code: 8480-6 BMI: 34.1 Code: 06601-8 Heart Rate 1: 68 bpm Height: 5'5" Respiratory Rate: 20 bpm SpO2: 98% Tempera ture: 36.6 (C) / 97.9 (F) Weight: 205 lbs 08/04/2013 Blood Pressure 1: 126/82 Code: 8480-6 BMI: 33.3 Code: 49690-4 Heart Rate 1: 76 bpm Height: 5'5" Respiratory Rate: 20 bpm Temperature: 36 .8 (C) / 98.2 (F) Weight: 200 lbs 07/03/2013 Blood Pressure 1: 124/82 Code: 8480-6 BMI: 33.3 Code: 51905-0 Heart Rate 1: 72 bpm Height: 5'5" Respiratory Rate: 22 bpm Temperature: 36 .1 (C) / 97.0 (F) Weight: 200 lbs 05/27/2013 Blood Pressure 1: 12682 Code: 8480-6 Heart Rate 1: 74 bpm Respiratory Rate: 20 bpm Temperature: 36.0 (C) / 96.8 (F) Weight: 199 lbs 04/06/2013 Blood Pressure 1: 118/80 Code: 8480-6 BMI: 35.2 Code: 15509-2 Heart Rate 1: 80 bpm Height: 5'4" Respiratory Rate: 20 bpm Temperature: 37 .4 (C) / 99.3 (F) Weight: 205 lbs 11/10/2012 Blood Pressure 1: 128/82 Code: 8480-6 Heart Rate 1: 84 bpm Respiratory Rate: 20 bpm Temperature: 36.7 (C) / 98.0 (F) Weight: 199 lbs 09/02/2012 Blood Pressure 1: 116/82 Code: 8480-6 BMI: 34.2 Code: 04927-6 Heart Rate 1: 88 bpm Height: 5'4" Respiratory Rate: 22 bpm Temperature: 36 .6 (C) / 97.8 (F) Weight: 199 lbs 08/04/2012 Blood Pressure 1: 128/74 Code: 8480-6 BMI: 34.0 Code: 93277-6 Heart Rate 1: 92 bpm Height: 5'4" Respiratory Rate: 20 bpm Temperature: 36 .4 (C) / 97.5 (F) Weight: 198 lbs 07/21/2012 Blood Pressure 1: 124/86 Code: 8480-6 Heart Rate 1: 116 bpm Respiratory Rate: 24 bpm Temperature: 36.8 (C) / 98.2 (F) 07/02/2012 Blood Pressure 1: 116/88 Code: 8480-6 BMI: 33.6 Code: 66060-9 Heart Rate 1: 76 bpm Height: 5'4" Respiratory Rate: 20 bpm Temperature: 36 .8 (C) / 98.3 (F) Weight: 196 lbs 06/24/2012 Blood Pressure 1: 124/80 Code: 8480-6 BMI: 34.3 Code: 32426-5 Heart Rate 1: 72 bpm Height: 5'4" SpO2: 96% Temperature: 36.3 (C) / 97.3 (F) Weight: 200 lbs 05/20/2012 Blood Pressure 1: 116/88 Code: 8480-6 BMI: 33.8 Code: 20855-4 Heart Rate 1: 80 bpm Height: 5'4" Respiratory Rate: 22 bpm Temperature: 36 .9 (C) / 98.4 (F) Weight: 197 lbs 05/08/2012 Blood Pressure 1: 128/86 Code: 8480-6 BMI: 33.8 Code: 38810-4 Heart Rate 1: 76 bpm Height: 5'4" Respiratory Rate: 26 bpm SpO2: 95% Tempera ture: 36.1 (C) / 97.0 (F) Weight: 197 lbs 04/22/2012 Blood Pressure 1: 106/64 Code: 8480-6 BMI: 33.8 Code: 36399-9 Heart Rate 1: 70 bpm Height: 5'4" Temperature: 36.1 (C) / 97.0 (F) Weight: 197 lbs 02/13/2012 Blood Pressure 1: 126/82 Code: 8480-6 BMI: 34.7 Code: 09920-5 Heart Rate 1: 64 bpm Height: 5'4" Respiratory Rate: 20 bpm Temperature: 36 .6 (C) / 97.8 (F) Weight: 202 lbs 01/28/2012 Blood Pressure 1: 116/80 Code: 8480-6 BMI: 34.7 Code: 16135-0 Heart Rate 1: 76 bpm Height: 5'4" Respiratory Rate: 20 bpm Temperature: 36 .8 (C) / 98.3 (F) Weight: 202 lbs 12/26/2011 Blood Pressure 1: 132/82 Code: 8480-6 BMI: 36.0 Code: 84428-0 Heart Rate 1: 68 bpm Height: 5'4" Respiratory Rate: 22 bpm Temperature: 36 .7 (C) / 98.0 (F) Weight: 210 lbs 11/14/2011 Blood Pressure 1: 124/80 Code: 8480-6 BMI: 36.4 Code: 15191-9 Heart Rate 1: 76 bpm Height: 5'4" Respiratory Rate: 20 bpm Temperature: 36 .8 (C) / 98.2 (F) Weight: 212 lbs 09/12/2011 Blood Pressure 1: 108/74 Code: 8480-6 BMI: 37.1 Code: 19182-6 Heart Rate 1: 72 bpm Height: 5'4" Respiratory Rate: 20 bpm Temperature: 37 .0 (C) / 98.6 (F) Weight: 216 lbs 08/15/2011 Blood Pressure 1: 122/80 Code: 8480-6 BMI: 36.9 Code: 17974-3 Heart Rate 1: 76 bpm Height: 5'4" Respiratory Rate: 20 bpm Temperature: 36 .2 (C) / 97.1 (F) Weight: 215 lbs 08/09/2011 Blood Pressure 1: 112/78 Code: 8480-6 BMI: 36.9 Code: 23249-3 Heart Rate 1: 68 bpm Height: 5'4" Respiratory Rate: 20 bpm Temperature: 36 .7 (C) / 98.0 (F) Weight: 215 lbs 07/03/2011 Blood Pressure 1: 140/94 Code: 8480-6 BMI: 36.2 Code: 85455-5 Heart Rate 1: 68 bpm Height: 5'4" Temperature: 36.0 (C) / 96.8 (F) Weight: 211 lbs 06/04/2011 Blood Pressure 1: 124/70 Code: 8480-6 BMI: 36.7 Code: 87207-3 Heart Rate 1: 68 bpm Height: 5'4" Respiratory Rate: 20 bpm Temperature: 36 .6 (C) / 97.9 (F) Weight: 214 lbs 05/03/2011 Blood Pressure 1: 130/76 Code: 8480-6 BMI: 36.4 Code: 58226-1 Heart Rate 1: 74 bpm Height: 5'5" Temperature: 36.2 (C) / 97.2 (F) Weight: 219 lbs 04/05/2011 Blood Pressure 1: 124/86 Code: 8480-6 BMI: 35.9 Code: 23866-6 Heart Rate 1: 76 bpm Height: 5'6" Respiratory Rate: 22 bpm Temperature: 36 .3 (C) / 97.3 (F) Weight: 219 lbs 03/08/2011 Blood Pressure 1: 112/78 Code: 8480-6 BMI: 35.1 Code: 95540-8 Heart Rate 1: 80 bpm Height: 5'6" Respiratory Rate: 26 bpm Temperature: 36 .9 (C) / 98.4 (F) Weight: 214 lbs 01/24/2011 Blood Pressure 1: 110/82 Code: 8480-6 BMI: 35.6 Code: 20709-7 Heart Rate 1: 80 bpm Height: 5'6" Temperature: 36.1 (C) / 97.0 (F) Weight: 217 lbs 01/02/2011 Blood Pressure 1: 106/72 Code: 8480-6 BMI: 35.6 Code: 02532-1 Heart Rate 1: 76 bpm Height: 5'6" [...] 1: 120/74 Code: 8480-6 BMI: 35.9 Code: 94992-8 Heart Rate 1: 72 bpm Height: 5'5" Temperature: 36.3 (C) / 97.4 (F) Weight: 216 lbs 09/19/2010 Blood Pressure 1: 124/80 Code: 8480-6 BMI: 35.4 Code: 54564-9 Heart Rate 1: 76 bpm Height: 5'5" [...] 1: 122/78 Code: 8480-6 BMI: 37.4 Code: 23543-2 Heart Rate 1: 84 bpm Height: 5'5" [...] 10/30/2017 follow up 10/23/2017 Hospital fwup from [facility] Annual Checkup 09/17/2017 Wellness Physical fo [...] follow up 10/26/2015 ER visit from at [facility] for COPD Exacerbation follow up 10/05/2015 ER Visit gait abnormality 09/15/2015 Patient requesting kelly pineda paperwork to be filled out disturbances of thinking 08/24/2015 follow up 07/05/2015 4wk fwup follow up 06/06/2015 [facility] cough 05/23/2015 follow up 05/05/2015 dyspnea 03/30/2015 [facility] needs new orde r for O2 abdominal pain 02/03/2015 cyst 12/29/2014 vs abscess follow up 09/02/2014 [facility] fw headache 08/25/2014 facial drooping follow up 04/01/2014 ER follow up 03/16/2014 1wk fwup follow up 03/09/2014 1mo fwup and bronchi tis fwup follow up 03/03/2014 2 day follow up 03/01/2014 ER follow up 02/09/2014 [facility] gastroesophageal reflux 12/23/2013 painful [...] up 08/04/2012 2wk fwup follow up 07/21/2012 [facility] an sore throat 07/02/2012 [...] up 10/18/[address] Medrano last w [facility], having increased allergy symptoms. Would like [...] 1 month f/u follow up 12/07/2009 from [facility], done with PT--finished about 2wks ago [...] swelling[ICD10: M79.89] Diagnosis: Dyspnea[ICD10: R06.00] [facility] CPT-4: 9921 3 06/24/2019 ([id number]) OFFICE/OUTPATIENT VISIT EST Diagnosis: Acute bronchitis[ICD10: J20.9] Diagnosis: Colitis[ICD10: K52.9] Belia CORNELLLINE BushraMayda ANUSHKA [employer] CPT-4: 18465 06/16/2019 ([id number]) OFFICE/OUTPATIENT VISIT EST Diagnosis: Diarrhea[ICD10: R19.7] Diagnosis: Abdominal bloating[ICD10: R14.0] [facility] CPT- 4: 96211 06/08/2019 ([id number]) OFFICE/OUTPATIENT VISIT EST Diagnosis: Acute febrile illness[ICD10: R50.9] Diagnosis: Colitis[ICD10: K52.9] Bel[facility] CPT-4: 22222 05/26/2019 ([id number]) OFFICE/OUTPATIENT VISIT EST Diagnosis: Chronic obstructive pulmonary disease, unspecified[ICD10: J44.9] Diagnosis: Pulmonary fibrosis[ICD10: J84.10] Diagnosis: Intermittent stridor[ICD10: R06.1] Diagnosis: Muscle weakness[ICD10: M62.81] Belia CORNELLLINE Bushra Mayda ZACHARYISABELLAOTONIEL [employer] CPT-4: 15003 05/13/2019 ([id number]) OFFICE/OUTPATIENT VISIT EST Diagnosis: Stridor[ICD10: R06.1] Diagnosis: COUGH[ICD10: R05] Beliahanna CORNELLLINE BushraMayda ANUSHKA [employer] [facility] CPT-4: 74621 05/06/2019 ([id number]) OFFICE/OUTPATIENT VISIT EST Diagnosis: Stridor[ICD10: R06.1] Diagnosis: Muscle, jerky movements (uncontrolled)[ICD10: G25.5] Belia REID [employer] [facility] CPT-4: 79405 04/29/2019 ([id number]) OFFICE/OUTPATIENT VISIT EST Diagnosis: Upper respiratory infection[ICD10: J06.9] Diagnosis: Flank pain[ICD10: R10.9] Diagnosis: Weight gain[ICD10: R63.5] Pattie AMBRIZ [employer] [facility] CPT-4: 56906 04/16/2019 ([id number]) OFFICE/OUTPATIENT VISIT EST Diagnosis: Generalized pruritus[ICD10: L29.9] Belia BASS MARIE Yuridia ERID [employer] [facility] CPT-4: 21772 04/08/2019 ([id number]) OFFICE/OUTPATIENT VISIT EST Diagnosis: Acute bursitis of left shoulder[ICD10: M75.52] Diagnosis: Cervicalgia[ICD10: M54.2] Diagnosis: Chest wall pain[ICD10: R07.89] Belia SMITH [employer] [facility] CPT-4: 22528 01/22/2019 ([id number]) OFFICE/OUTPATIENT VISIT EST Diagnosis: Abdominal pain[ICD10: R10.9] Diagnosis: Pyelonephritis[ICD10: N12] Pattie DOMINGUEZ [employer] CPT-4: 02578 01/07/2019 ([id number]) OFFICE/OUTPATIENT VISIT EST Diagnosis: Low back pain[ICD10: M54.5] Diagnosis: Left lumbar radiculopathy[ICD10: M54.16] Diagnosis: Left flank pain[ICD10: R10.9] Diagnosis: Left lower quadrant pain[ICD10: R10.32] Diagnosis: FLU VACCINE[ICD10: Z23] Belia FREDERICK [employer] CPT-4: 25785 12/24/2018 ([id number]) OFFICE/OUTPATIENT VISIT EST Diagnosis: Migraine, unspecified, not intractable, without status migrainosus[ICD10: G43.909] Diagnosis: Fibromyalgia[ICD10: M79.7] Belia Orenilson DOMINGUEZ [facility] CPT-4: 08926 11/20/2018 ([id number]) OFFICE/OUTPATIENT VISIT EST Diagnosis: Migraine, unspecified, intractable, without status migrainosus[ICD10: G43.919] Diagnosis: Acute sinusitis, unspecified[ICD10: J01.90] Pattie REID DO [facility] CPT-4: 60601 11/04/2018 ([id number]) OFFICE/OUTPATIENT VISIT EST Diagnosis: Pain in left wrist[ICD10: M25.532] Diagnosis: Other dorsalgia[ICD10: M54.89] Pattie REID DO [facility] CPT-4: 80654 09/08/2018 ([id number]) OFFICE/OUTPATIENT VISIT EST Diagnosis: Acute stress reaction[ICD10: F43.0] Diagnosis: Pruritus, unspecified[ICD10: L29.9] 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, 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] Belia REID DO [facility] CPT-4: 32711 08/20/2018 ([id number]) OFFICE/OUTPATIENT VISIT EST Diagnosis: Hypotension due to drugs[ICD10: I95.2] Diagnosis: Paroxysmal atrial fibrillation[ICD10: I48.0] Diagnosis: Localized edema[ICD10: R60.0] Belia REID DO [facility] CPT-4: 36310 06/19/2018 ([id number]) OFFICE/OUTPATIENT VISIT EST Diagnosis: Generalized hyperhidrosis[ICD10: R61] Diagnosis: Essential (primary) hypertension[ICD10: I10] Diagnosis: Supraventricular tachycardia[ICD10: I47.1] Belia REID DO [facility] CPT-4: 69778 06/09/2018 ([id number]) OFFICE/OUTPATIENT VISIT EST Diagnosis: Stridor[ICD10: R06.1] Diagnosis: Dependence on supplemental oxygen[ICD10: Z99.81] Diagnosis: Weakness[ICD10: R53.1] Diagnosis: Supraventricular tachycardia[ICD10: I47.1] Belia REID DO [facility] CPT-4: 06240 05/21/2018 ([id number]) OFFICE/OUTPATIENT VISIT EST Diagnosis: Cervical disc disorder with radiculopathy, unspecified cervical region[ICD10: M50.10] Belia REID DO [facility] CPT-4: 81076 04/16/2018 ([id number]) OFFICE/OUTPATIENT VISIT EST Diagnosis: Migraine, unspecified, intractable, without status migrainosus[ICD10: G43.919] Diagnosis: Fibromyalgia[ICD10: M79.7] Pattie DOMINGUEZ [facility] CPT-4: 03139 04/01/2018 ([id number]) NURSE/OUTPATIENT VISIT EST Diagnosis: Hematuria, unspecified[ICD10: R31.9] Diagnosis: Dysuria[ICD10: R30.0] Belia REID [employer] [facility] CPT-4: 31037 03/17/2018 ([id number]) OFFICE/OUTPATIENT VISIT EST Diagnosis: Erythema intertrigo[ICD10: L30.4] Diagnosis: Chronic obstructive pulmonary disease with (acute) exacerbation[ICD10: J44.1] Diagnosis: Type 2 diabetes mellitus with hyperglycemia[ICD10: E11.65] Belia REID [employer] [facility] CPT-4: 56937 03/06/2018 ([id number]) OFFICE/OUTPATIENT VISIT EST Diagnosis: Cervicalgia[ICD10: M54.2] Pattie AMBRIZ [employer] [facility] CPT-4: 32573 02/05/2018 ([id number]) OFFICE/OUTPATIENT VISIT EST Diagnosis: Candidiasis of skin and nail[ICD10: B37.2] Diagnosis: Cervicalgia[ICD10: M54.2] Pattie CAINR [employer] [facility] CPT-4: 23381 01/20/2018 ([id number]) OFFICE/OUTPATIENT VISIT EST Diagnosis: Pain in thoracic spine[ICD10: M54.6] Diagnosis: Radiculopathy, thoracic region[ICD10: M54.14] Belia REID [employer] [facility] CPT-4: 57319 12/25/2017 ([id number]) OFFICE/OUTPATIENT VISIT EST Diagnosis: Pain in thoracic spine[ICD10: M54.6] Diagnosis: Other muscle spasm[ICD10: M62.838] Diagnosis: FLU VACCINE[ICD10: Z23] Diagnosis: PNEUMOCOCCAL VACCINE[ICD10: Z23] Belia REID DO [facility] CPT-4: 64693 12/17/2017 ([id number]) OFFICE/OUTPATIENT VISIT EST Diagnosis: Chronic obstructive pulmonary disease with (acute) exacerbation[ICD10: J44.1] Belia REID DO [facility] CPT- 4: 50000 10/30/2017 ([id number]) OFFICE/OUTPATIENT VISIT EST Diagnosis: Chronic obstructive pulmonary disease with acute lower respiratory infection[ICD10: J44.0] Diagnosis: Mild intermittent asthma with (acute) exacerbation[ICD10: J45.21] Belia REID [employer] [facility] CPT-4: 85426 10/23/2017 ([id number]) NURSE/OUTPATIENT VISIT EST Diagnosis: Migraine, unspecified, not intractable, without status migrainosus[ICD10: G43.909] Belia REID [employer] [facility] CPT - 4: 96728 08/26/2017 ([id number]) OFFICE/OUTPATIENT VISIT EST Diagnosis: Urinary tract infection, site not specified[ICD10: N39.0] Diagnosis: Encounter for screening for osteoporosis[ICD10: Z13.820] Diagnosis: Encounter for screening mammogram for malignant neoplasm of breast[ICD10: Z12.31] Diagnosis: Acute bronchitis, unspecified[ICD10: J20.9] Pattie REID DO [facility] CPT-4: 67620 07/19/2017 ([id number]) OFFICE/OUTPATIENT VISIT EST Diagnosis: Rash and other nonspecific skin eruption[ICD10: R21] Pattie REID DO [facility] CPT-4: 97799 05/29/2017 ([id number]) OFFICE/OUTPATIENT VISIT EST Diagnosis: Diarrhea, unspecified[ICD10: R19.7] Diagnosis: Tinea corporis[ICD10: B35.4] Diagnosis: Tinea cruris[ICD10: B35.6] Diagnosis: Migraine, unspecified, not intractable, without status migrainosus[ICD10: G43.909] Belia REID [facility] CPT - 4: 76538 05/07/2017 ([id number]) OFFICE/OUTPATIENT VISIT EST Diagnosis: Stridor[ICD10: R06.1] Diagnosis: Chronic obstructive pulmonary disease with (acute) exacerbation[ICD10: J44.1] Belia REID DO [facility] CPT- 4: 75877 03/18/2017 ([id number]) OFFICE/OUTPATIENT VISIT EST Diagnosis: Type 2 diabetes mellitus with hyperglycemia[ICD10: E11.65] Belia REID DO [facility] CPT-4: 46585 02/27/2017 OFFICE/OUTPATIENT VISIT EST Diagnosis: Type 2 diabetes mellitus with hyperglycemia[ICD10: E11.65] Pattie REID [employer] [facility] CPT-4: 65492 02/22/2017 ([id number]) OFFICE/OUTPATIENT VISIT EST Diagnosis: Urinary tract infection, site not specified[ICD10: N39.0] Diagnosis: Pneumonia, unspecified organism[ICD10: J18.9] Diagnosis: Type 2 diabetes mellitus with hyperglycemia[ICD10: E11.65] Belia REID [facility] CPT-4: 66752 01/23/2017 ([id number]) OFFICE/OUTPATIENT VISIT EST Diagnosis: Type 2 diabetes mellitus with hyperglycemia[ICD10: E11.65] Diagnosis: Localized edema[ICD10: R60.0] Diagnosis: PNEUMOCOCCAL VACCINE[ICD10: Z23] Diagnosis: FLU VACCINE[ICD10: Z23] Belia FREDERICK [facility] CPT-4: 08946 12/20/2016 OFFICE/OUTPATIENT VISIT EST Diagnosis: Pain in thoracic spine[ICD10: M54.6] Diagnosis: Low back pain[ICD10: M54.5] Diagnosis: Cervicalgia[ICD10: M54.2] Diagnosis: Cough[ICD10: R05] Celeste Ferreira BELIA REID [employer] [facility] CPT-4: 13454 10/08/2016 ([id number]) OFFICE/OUTPATIENT VISIT EST Diagnosis: Primary insomnia[ICD10: F51.01] Diagnosis: Migraine, unspecified, not intractable, without status migrainosus[ICD10: G43.909] Diagnosis: Type 2 diabetes mellitus with hyperglycemia[ICD10: E11.65] Belia REID DO [facility] CPT-4: 90849 09/19/2016 ([id number]) OFFICE/OUTPATIENT VISIT EST Diagnosis: Migraine, unspecified, not intractable, without status migrainosus[ICD10: G43.909] Diagnosis: Generalized abdominal pain[ICD10: R10.84] Diagnosis: Cough[ICD10: R05] Belia REID DO [facility] CPT-4: 92321 08/20/2016 ([id number]) OFFICE/OUTPATIENT VISIT EST Diagnosis: Chronic obstructive pulmonary disease, unspecified[ICD10: J44.9] Diagnosis: Stridor[ICD10: R06.1] Belia REID DO [facility] CPT-4: 90728 06/19/2016 ([id number]) OFFICE/OUTPATIENT VISIT EST Diagnosis: Chronic obstructive pulmonary disease, unspecified[ICD10: J44.9] Diagnosis: Personal history of urinary (tract) infections[ICD10: Z87.440] Belia REID DO [facility] CPT-4: 65694 06/04/2016 ([id number]) OFFICE/OUTPATIENT VISIT EST Diagnosis: Stridor[ICD10: R06.1] Diagnosis: Chronic obstructive pulmonary disease with acute lower respiratory infection[ICD10: J44.0] Diagnosis: Other specified diseases of intestine[ICD10: K63.89] Diagnosis: Cystitis, unspecified without hematuria[ICD10: N30.90] Belia REID DO [facility] CPT-4: 38415 05/02/2016 ([id number]) OFFICE/OUTPATIENT VISIT EST Diagnosis: Fibromyalgia[ICD10: M79.7] Diagnosis: Urinary tract infection, site not specified[ICD10: N39.0] Belia REID DO [facility] CPT-4: 70366 04/03/2016 ([id number]) OFFICE/OUTPATIENT VISIT EST Diagnosis: Unspecified asthma, uncomplicated[ICD10: J45.909] Diagnosis: Cough[ICD10: R05] Lidia HSUQUELINE BushraMayda ANUSHKA [employer] [facility] T-4: 09481 02/29/2016 ([id number]) OFFICE/OUTPATIENT VISIT EST Diagnosis: Migraine, unspecified, intractable, without status migrainosus[ICD10: G43.919] Diagnosis: Urinary tract infection, site not specified[ICD10: N39.0] Belia Anushka HSUQUELINE BushraMayda [facility] [employer] [facility] CPT-4: 79917 02/02/2016 ([id number]) OFFICE/OUTPATIENT VISIT EST Diagnosis: Urinary tract infection, site not specified[ICD10: N39.0] Diagnosis: Unspecified abdominal pain[ICD10: R10.9] Diagnosis: Pain in thoracic spine[ICD10: M54.6] Diagnosis: Type 2 diabetes mellitus with diabetic neuropathic arthropathy[ICD10: E11.610] Belia Anushka HSUQUELINE BushraMayda [facility] [employer] [facility] CPT-4: 17859 12/05/2015 ([id number]) OFFICE/OUTPATIENT VISIT EST Diagnosis: Chronic obstructive pulmonary disease with (acute) exacerbation[ICD10: J44.1] Diagnosis: Migraine, unspecified, not intractable, without status migrainosus[ICD10: G43.909] Lidia HSUQUELINE BushraMayda [facility] [facility] CPT -4: 77810 10/26/2015 ([id number]) OFFICE/OUTPATIENT VISIT EST Diagnosis: Hematuria, unspecified[ICD10: R31.9] Diagnosis: Urinary tract infection, site not specified[ICD10: N39.0] Lidia HSUQUELINE BushraMayda [facility] [employer] [facility] CPT-4: 03173 10/05/2015 OFFICE/OUTPATIENT VISIT EST Diagnosis: Chronic obstructive pulmonary disease, unspecified[ICD10: J44.9] Diagnosis: Muscle weakness (generalized)[ICD10: M62.81] Diagnosis: Polyneuropathy, unspecified[ICD10: G62.9] Diagnosis: Other intervertebral disc degeneration, 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] Diagnosis: Fibromyalgia[ICD10: M79.7] Belia Zacharyisabellaotoniel BELIA Yuridia DAILEYER [employer] [facility] CPT-4: 41195 09/15/2015 ([id number]) OFFICE/OUTPATIENT VISIT EST Diagnosis: Disorientation, unspecified[ICD10: R41.0] Diagnosis: Headache[ICD10: R51] Diagnosis: Paresthesia of skin[ICD10: R20.2] Lidia REID DO [facility] CPT-4: 16364 08/24/2015 ([id number]) OFFICE/OUTPATIENT VISIT EST Diagnosis: Type 2 diabetes mellitus with hyperglycemia[ICD10: E11.65] Diagnosis: Chronic obstructive pulmonary disease with acute lower respiratory infection[ICD10: J44.0] Belia REID DO [facility] CPT-4: 66322 07/05/2015 ([id number]) OFFICE/OUTPATIENT VISIT EST Diagnosis: Mild intermittent asthma with (acute) exacerbation[ICD10: J45.21] Diagnosis: Chronic obstructive pulmonary disease, unspecified[ICD10: J44.9] Belia REID [facility] CPT-4: 20636 06/06/2015 ([id number]) OFFICE/OUTPATIENT VISIT EST Diagnosis: Chronic obstructive pulmonary disease with (acute) exacerbation[ICD10: J44.1] Lidia REID [facility] CPT- 4: 22170 05/23/2015 ([id number]) OFFICE/OUTPATIENT VISIT EST Diagnosis: Type 2 diabetes mellitus with hyperglycemia[ICD10: E11.65] Diagnosis: Functional dyspepsia[ICD10: K30] Belia REID DO [facility] CPT-4: 09857 05/05/2015 ([id number]) OFFICE/OUTPATIENT VISIT EST Diagnosis: Type 2 diabetes mellitus with hyperglycemia[ICD10: E11.65] Diagnosis: Glycosuria[ICD10: R81] Diagnosis: Urinary tract infection, site not specified[ICD10: N39.0] Belia REID DO [facility] CPT-4: 15336 03/30/2015 ([id number]) OFFICE/OUTPATIENT VISIT EST Diagnosis: Generalized abdominal pain[ICD10: R10.84] Diagnosis: Diarrhea, unspecified[ICD10: R19.7] Diagnosis: Urinary tract infection, site not specified[ICD10: N39.0] Diagnosis: Gastro-esophageal reflux disease without esophagitis[ICD10: K21.9] Belia ERID [facility] CPT-4: 50567 02/03/2015 ([id number]) OFFICE/OUTPATIENT VISIT EST Diagnosis: Other specified noninflammatory disorders of vagina[ICD10: N89.8] Diagnosis: Follicular disorder, unspecified[ICD10: L73.9] Diagnosis: Functional dyspepsia[ICD10: K30] Diagnosis: FLU VACCINE[ICD10: Z23] Belia [facility] CPT-4: 94938 12/29/2014 ([id number]) OFFICE/OUTPATIENT VISIT EST 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] Diagnosis: RESTLESS LEGS SYNDROME[ICD9: 333.94] Diagnosis: MIGRAINE NOS/NOT INTRCBL[ICD9: 346.90] [facility]ia [facility] CPT-[facility]: 19996 09/02/2014 ([id number]) OFFICE/OUTPATIENT VISIT EST Diagnosis: Cervical radiculopathy[ICD9: 723.4] Diagnosis: Cervicalgia[ICD9: 723.1] Diagnosis: Degenerative disc disease, cervical[ICD9: 722.4] 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I[ICD9: 250.00] Belia [facility] CPT-4: 74397 04/01/2014 OFFICE/OUTPATIENT VISIT EST Diagnosis: Reactive airway disease[ICD9: 493.90] Belia HSUPAUL LUBNA BushraMayda [facility] CPT-[facility]: 83883 03/16/2014 ([id number]) OFFICE/OUTPATIENT VISIT EST Diagnosis: BRONCHITIS, ACUTE[ICD9: 466.0] Diagnosis: Reactive airway disease[ICD9: 493.90] Beliahanna Reid MINAL LUBNA BushraMayda [facility] CPT-4: 03006 03/09/2014 OFFICE/OUTPATIENT VISIT EST Diagnosis: BRONCHITIS, ACUTE[ICD9: 466.0] Diagnosis: WHEEZING[ICD9: 786.07] Huong Osborne BELIA BushraMayda RALF [facility] CPT-4: 02707 03/03/2014 OFFICE/OUTPATIENT VISIT EST Diagnosis: BRONCHITIS, ACUTE[ICD9: 466.0] Diagnosis: WHEEZING[ICD9: 786.07] Huong Peguero [facility] CPT-4: 83766 03/01/2014 ([id number]) OFFICE/OUTPATIENT VISIT EST Diagnosis: GERD[ICD9: 530.81] Diagnosis: ARTHRALGIA-MULTIPLE SITES[ICD9: 719.49] Diagnosis: LUMB/LUMBOSAC DISC DEGEN[ICD9: 722.52] Diagnosis: - I - FIBROMYALGIA[ICD9: 729.1] Belia Humphriesisabellaotoniel TomlinsonMayda ANUSHKA [facility] CPT-4: 97955 02/09/2014 ([id number]) OFFICE/OUTPATIENT VISIT EST Diagnosis: Peptic ulcer disease[ICD9: 533.90] Diagnosis: RESTLESS LEGS SYNDROME[ICD9: 333.94] Diagnosis: Neuropathy[ICD9: 355.9] Belia Humphriesisabellaotoniel CORNELLBELIA Yuridia FREDERICK [facility] CPT-4: 70601 12/23/2013 ([id number]) OFFICE/OUTPATIENT VISIT EST Diagnosis: URINARY TRACT INFECTION[ICD9: 599.0] Belia Humphriesisabellaotoniel CORNELL CLAYTON BushraMayda ANUSHKA [facility] CPT-4: 25317 10/30/2013 ([id number]) OFFICE/OUTPATIENT VISIT EST Diagnosis: Flank pain[ICD9: 789.00] Belia Humphriesisabellaotoniel CORNELLBELIA BushraMayda KIESHA POOLE [facility] CPT-4: 05817 10/21/2013 ([id number]) OFFICE/OUTPATIENT VISIT EST Diagnosis: INFLAMED SEBORR KERATOS[ICD9: 702.11] Diagnosis: Brachioradial pruritus[ICD9: 698.9] Diagnosis: ASTHMA NOS[ICD9: 493.90] Belia Humphriesisabellaotoniel CORNELLBELIA BushraMayda KIESHA POOLE [facility] CPT-4: 60045 10/05/2013 ([id number]) OFFICE/OUTPATIENT VISIT EST Diagnosis: HYPERTENSION[ICD9: 401.9] Diagnosis: - I - FIBROMYALGIA[ICD9: 729.1] Diagnosis: DIZZINESS/VERTIGO[ICD9: 780.4] Diagnosis: MIGRAINE NOS/NOT INTRCBL[ICD9: 346.90] Diagnosis: Diabetic peripheral neuropathy[ICD9: 250.60] Diagnosis: Flank pain[ICD9: 789.00] Belia CORNELLLINE Yuridia POOLE [facility] CPT-4: 17297 08/04/2013 ([id number]) OFFICE/OUTPATIENT VISIT EST Diagnosis: ALLERGIC RHINITIS[ICD9: 477.9] Belia CORNELLLINE Bushra REID [facility] CPT-4: 85503 07/13/2013 OFFICE/OUTPATIENT VISIT EST Diagnosis: URINARY TRACT INFECTION[ICD9: 599.0] Huong De LunaFidepool REID [facility] CPT-4: 46147 07/03/2013 OFFICE/OUTPATIENT VISIT EST Diagnosis: HYPERTENSION[ICD9: 401.9] Diagnosis: URINARY TRACT INFECTION[ICD9: 599.0] Diagnosis: BACKACHE[ICD9: 724.5] Diagnosis: URINARY INCONTINENCE[ICD9: 788.30] Huong De LunaFidepool BASS MARIE Yuridia [facility] CPT-4: 17029 05/27/2013 ([id number]) OFFICE/OUTPATIENT VISIT EST Diagnosis: Flank pain[ICD9: 789.00] Belia Humphriesisabellaotoniel CORNELLBELIA BushraMayda KIESHA [facility] CPT-4: 64122 05/25/2013 ([id number]) OFFICE/OUTPATIENT VISIT EST Diagnosis: B-COMPLEX DEFIC NEC[ICD9: 266.2] Belia Anushka CORNELLLINE Yuridia [facility] CPT-4: 19418 05/04/2013 ([id number]) OFFICE/OUTPATIENT VISIT EST Diagnosis: ALLERGIC RHINITIS[ICD9: 477.9] Diagnosis: Vitamin B12 deficiency[ICD9: 266.2] Belia THOMPSON Yuridia REID [facility] CPT-4: 12530 04/17/2013 ([id number]) OFFICE/OUTPATIENT VISIT EST 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I[ICD9: 250.00] Diagnosis: URINARY TRACT INFECTION[ICD9: 599.0] Diagnosis: DIZZINESS/VERTIGO[ICD9: 780.4] Diagnosis: DIARRHEA[ICD9: 787.91] Belia Zacharynilson BRUNSON BushraMayda ZACHARYISABELLAReggie [facility] CPT-4: 84702 04/06/2013 ([id number]) OFFICE/OUTPATIENT VISIT EST Diagnosis: URINARY TRACT INFECTION[ICD9: 599.0] Diagnosis: URINARY RETENTION[ICD9: 788.20] Belia REID [facility] CPT-4: 58588 11/10/2012 ([id number]) OFFICE/OUTPATIENT VISIT EST Diagnosis: TACHYCARDIA[ICD9: 785.0] Diagnosis: SYNCOPE AND COLLAPSE[ICD9: 780.2] Diagnosis: CONSCIOUSNS ALTERAT NEC[ICD9: 780.09] Belia REID [facility] CPT-4: 27016 09/02/2012 OFFICE/OUTPATIENT VISIT EST Diagnosis: TACHYCARDIA[ICD9: 785.0] Diagnosis: SYNCOPE AND COLLAPSE[ICD9: 780.2] Belia REID [facility] CPT-4: 91924 08/04/2012 ([id number]) OFFICE/OUTPATIENT VISIT EST Diagnosis: Loss of consciousness[ICD9: 780.09] Diagnosis: Tachycardia[ICD9: 785.0] Diagnosis: MALAISE AND FATIGUE[ICD9: 780.79] Belia [facility] CPT-[facility]: 47109 07/21/2012 ([id number]) OFFICE/OUTPATIENT VISIT EST Diagnosis: BRONCHITIS, ACUTE[ICD9: 466.0] Diagnosis: ASTHMA NOS[ICD9: 493.90] Belia POOLE [facility] CPT-4: 64177 07/02/2012 ([id number]) OFFICE/OUTPATIENT VISIT EST Diagnosis: CEPHALGIA[ICD9: 784.0] Belia Peguero [facility] CPT-4: 85111 06/25/2012 ([id number]) OFFICE/OUTPATIENT VISIT EST Diagnosis: GERD[ICD9: 530.81] Diagnosis: DIARRHEA[ICD9: 787.91] Diagnosis: URINARY TRACT INFECTION[ICD9: 599.0] Diagnosis: ASTHMA NOS[ICD9: 493.90] Diagnosis: ALLERGIC RHINITIS[ICD9: 477.9] Belia REID [facility] CPT-4: 88853 06/24/2012 ([id number]) OFFICE/OUTPATIENT VISIT EST Diagnosis: MIGRAINE NOS/NOT INTRCBL[ICD9: 346.90] Diagnosis: TREMOR NEC[ICD9: 333.1] Diagnosis: CHRONIC PAIN SYNDROME[ICD9: 338.4] Belia Zacharynilson SALAZAR BushraMayda ANUSHKA [employer] [facility] CPT-4: 44364 05/20/2012 ([id number]) OFFICE/OUTPATIENT VISIT EST Diagnosis: DIZZINESS/VERTIGO[ICD9: 780.4] Diagnosis: PALPITATIONS[ICD9: 785.1] Diagnosis: TREMOR NEC[ICD9: 333.1] Diagnosis: ANXIETY STATE NOS[ICD9: 300.00] Diagnosis: POSTTRAUMATIC STRESS DISORDER[ICD9: 309.81] Belia Zacharynilson BRUNSON BushraMayda ANUSHKA [employer] [facility] CPT-4: 79214 05/08/2012 ([id number]) OFFICE/OUTPATIENT VISIT EST Diagnosis: MIGRAINE NOS/NOT INTRCBL[ICD9: 346.90] Diagnosis: FIBROMYALGIA[ICD9: 729.1] Diagnosis: SYNCOPE AND COLLAPSE[ICD9: 780.2] Diagnosis: Diabetic peripheral neuropathy[ICD9: 250.60] Belia Zacharynilson BELIA BushraMayda LUIS [employer] [facility] CPT-4: 08714 04/22/2012 OFFICE/OUTPATIENT VISIT EST Diagnosis: ROTATOR CUFF DIS NEC[ICD9: 726.19] Diagnosis: JOINT PAIN-SHLDER[ICD9: 719.41] Diagnosis: DYSPEPSIA[ICD9: 536.8] Belia Zacharynilson BELIA BushraMayda RALF [employer] CPT-4: 60746 02/13/2012 ([id number]) OFFICE/OUTPATIENT VISIT EST Diagnosis: MIGRAINE NOS/NOT INTRCBL[ICD9: 346.90] Diagnosis: GERD[ICD9: 530.81] Diagnosis: DYSPEPSIA[ICD9: 536.8] Belia BRUNSON BushraMayda RALF [employer] [facility] CPT-4: 04275 01/28/2012 OFFICE/OUTPATIENT VISIT EST Diagnosis: CEPHALGIA[ICD9: 784.0] Diagnosis: MIGRAINE NOS/NOT INTRCBL[ICD9: 346.90] Diagnosis: GERD[ICD9: 530.81] Diagnosis: INSOMNIA NOS[ICD9: 780.52] Belia Shi RAND DAILEYER [employer] [facility] CPT-4: 52329 12/26/2011 ([id number]) OFFICE/OUTPATIENT VISIT EST Diagnosis: CEPHALGIA[ICD9: 784.0] Diagnosis: MIGRAINE NOS/NOT INTRCBL[ICD9: 346.90] Diagnosis: MALAISE AND FATIGUE[ICD9: 780.79] Diagnosis: FIBROMYALGIA[ICD9: 729.1] Diagnosis: ALLERGIC RHINITIS[ICD9: 477.9] Belia REID [employer] [facility] CPT-4: 31395 11/14/2011 ([id number]) OFFICE/OUTPATIENT VISIT EST Diagnosis: MALAISE AND FATIGUE[ICD9: 780.79] Diagnosis: MUSCLE WEAKNESS-GENERAL[ICD9: 728.87] Diagnosis: MIGRAINE NOS/NOT INTRCBL[ICD9: 346.90] Diagnosis: JOINT PAIN-SHLDER[ICD9: 719.41] Belia REID [employer] [facility] CPT-4: 30275 09/12/2011 ([id number]) OFFICE/OUTPATIENT VISIT EST Diagnosis: CONCUSSION[ICD9: 850.9] Diagnosis: Ataxia[ICD9: 781.3] Diagnosis: DIZZINESS/VERTIGO[ICD9: 780.4] Belia REID [employer] [facility] CPT-4: 87940 08/15/2011 ([id number]) OFFICE/OUTPATIENT VISIT EST Diagnosis: THROMBOPHLEBITIS[ICD9: 451.9] Diagnosis: Subacromial bursitis[ICD9: 726.19] Diagnosis: ALLERGIC RHINITIS[ICD9: 477.9] Diagnosis: Lipoma[ICD9: 214.9] Belia REID [facility] CPT-4: 98385 08/09/2011 ([id number]) OFFICE/OUTPATIENT VISIT EST Diagnosis: THROMBOPHLEBITIS[ICD9: 451.9] Diagnosis: Arm pain[ICD9: 729.5] Diagnosis: Clostridium difficile colitis[ICD9: 008.45] Diagnosis: URINARY TRACT INFECTION[ICD9: 599.0] Belia ERID [employer] [facility] CPT-4: 04884 07/03/2011 ([id number]) OFFICE/OUTPATIENT VISIT EST Diagnosis: ARTHRALGIA-MULTIPLE SITES[ICD9: 719.49] Diagnosis: Muscle cramp[ICD9: 729.82] Diagnosis: INSOMNIA NOS[ICD9: 780.52] Belia DOMINGUEZ [facility] CPT-4: 71658 06/04/2011 OFFICE/OUTPATIENT VISIT EST Diagnosis: Headache[ICD9: 784.0] Diagnosis: Allergic rhinitis[ICD9: 477.9] [facility] 18701 05/03/2011 OFFICE/OUTPATIENT VISIT EST Diagnosis: LUMB/LUMBOSAC DISC DEGEN[ICD9: 722.52] Diagnosis: MIGRAINE NOS/NOT INTRCBL[ICD9: 346.90] Diagnosis: CHRONIC PAIN SYNDROME[ICD9: 338.4] Diagnosis: RESTLESS LEGS SYNDROME[ICD9: 333.94] Belia CORNELL CLAYTON Yuridia [facility]: 01088 04/05/2011 OFFICE/OUTPATIENT VISIT EST Diagnosis: MIGRAINE NOS/NOT INTRCBL[ICD9: 346.90] Diagnosis: GERD[ICD9: 530.81] [facility]: 40711 03/08/2011 OFFICE/OUTPATIENT VISIT EST Diagnosis: URINARY TRACT INFECTION[ICD9: 599.0] Diagnosis: Vertigo[ICD9: 780.4] Diagnosis: GERD[ICD9: 530.81] [facility]: 95202 01/24/2011 OFFICE/OUTPATIENT VISIT EST Diagnosis: Hypotension[ICD9: 458.9] Diagnosis: Syncopal episodes[ICD9: 780.2] Diagnosis: MIGRAINE NOS/NOT INTRCBL[ICD9: 346.90] Diagnosis: MALAISE AND FATIGUE[ICD9: 780.79] Belia Zacharynilson Paredes Yuridia [facility] CPT-4: 03478 01/02/2011 OFFICE/OUTPATIENT VISIT EST Diagnosis: Tinea cruris[ICD9: 110.3] Diagnosis: Intertrigo[ICD9: 695.89] Diagnosis: MIGRAINE NOS/NOT INTRCBL[ICD9: 346.90] Belia COKER [facility]uridia [facility]: 42524 12/07/2010 OFFICE/OUTPATIENT VISIT EST Diagnosis: PALPITATIONS[ICD9: 785.1] Diagnosis: ANXIETY STATE NOS[ICD9: 300.00] Belia Zacharyisabellaotoniel CORNELLBELIA [facility] CPT-4: 76616 11/16/2010 OFFICE/OUTPATIENT VISIT EST Diagnosis: URINARY TRACT INFECTION[ICD9: 599.0] Diagnosis: MIGRAINE NOS/NOT INTRCBL[ICD9: 346.90] Iraida Robert SONJA UELINE [facility] CPT-4: 74199 11/02/2010 OFFICE/OUTPATIENT VISIT EST Diagnosis: ALLERGIC RHINITIS[ICD9: 477.9] Diagnosis: ANXIETY STATE NOS[ICD9: 300.00] Beliahanna HSUQUELINE [facility] CPT-4: 88385 10/18/2010 OFFICE/OUTPATIENT VISIT EST Belia Zacharyisabellaotoniel CORNELLBELIA [facility] CPT- 4: 79628 09/19/2010 OFFICE/OUTPATIENT VISIT EST Belia Zacharyisabellaotoniel CORNELLBELIA [facility] CPT- 4: 23353 09/06/2010 ([id number]) OFFICE/OUTPATIENT VISIT EST Belia Zacharyisabellaotoniel CASILLAS UELINE [facility] CPT-4: 09389 08/10/2010 ([id number]) OFFICE/OUTPATIENT VISIT EST Belia Zacharyisabellaotoniel HSUQ UELINE [facility] CPT-4: 48947 05/11/2010 ([id number]) OFFICE/OUTPATIENT VISIT, EST Belia HSU ROBERTOCLAYTON [facility] CPT-4: 78497 04/06/2010 ([id number]) OFFICE/OUTPATIENT VISIT, EST Belia HSU QUELINE [facility] CPT-4: 68881 02/09/2010 ([id number]) OFFICE/OUTPATIENT VISIT, EST Belia DELGADO [facility] CPT-4: 88110 01/05/2010 ([id number]) OFFICE/OUTPATIENT VISIT, EST Belia HSU ROBERTOCLAYTON [facility] CPT-4: 46907 12/07/2009 ([id number]) OFFICE/OUTPATIENT VISIT, EST Beliahanna [facility] CPT-4: 86916 11/08/2009 ([id number]) OFFICE/OUTPATIENT VISIT, [facility]OS [facility] CPT-4: 33517 10/24/2009 ([id number]) OFFICE/OUTPATIENT VISIT, [facility] CPT-4: 32041 07/25/2009 ([id number]) OFFICE/OUTPATIENT VISIT, [facility] CPT-4: 77857 05/26/2009 Plan of Care Planned Activity Notes [...] Visit Diagnosis Plan: Colitis Discussion: Levaquin/Fla gyl Heard Diet ICD-9 : 558.9 ICD-10 : K52.9 06/16/2019 Visit Diagnosis Plan: Acute bronchitis Discussion: Cov er with levaquin Increase SVNs with albuterol to QID Has oxygen using q HS routinely and prn To ER if oxygen levels drop or worsening respiratory symptoms ICD-9 : 466.0 ICD-10 : J20.9 06/16/2019 Appointment: [facility] [phone] [id number] [facility] 06/16/2019 Patient Education: Levaquin- [employer] Coupon [id number] [email or web address] Completed 06/16/2019 Visit Diagnosis Plan: Diarrhea Discussion: Vancomycin for 10 days and notify if not improving or worsening BLAND diet Hydrate ICD-9 : 787.91 ICD-10 : R19.7 06/08/2019 Appointment: Belia Reidtel: [address] [place] [address] TELEMEDICINE 06/08/2019 Visit Diagnosis Plan: Colitis Discussion: Flagyl plus cipro to cover for both colitis and UTI Notify or to ER if worsening ICD-9 : 558.9 ICD-10 : K52.9 05/26/2019 Visit Diagnosis Plan: Acute febrile illness Discussion : Notify if worsens ICD-9 : 780.60 ICD-10 : R50.9 05/26/2019 Appointment: Belia Reidtel: [address] [place] [address] TELEMEDICINE 05/26/2019 Appointment: Pattie Sotomayor [address] RESCHEDULED 05/18/2019 Visit Diagnosis Plan: Chronic obstructive pulmonary di sease, unspecified Discussion: Recommend pulmonary rehab Patient states she never went to pulmonary rehab due to cost as well as transportation issues Finish trelagy Stop singulair Decrease hydroxyzine to 25mg po q HS Fwup [address] scan of Chest results discussed ICD-9 : 496 ICD-10 : J44.9 05/13/2019 Appointment: Belia Reid WPtel: [address] [place] [address] Hospital Follow Up 05/13/2019 Visit Diagnosis Plan: COUGH Discussion: Check CT scan of chest ICD-9 : 786.2 ICD-10 : R05 05/06/2019 Visit Diagnosis Plan: Stridor Discussion: Add Trelagy 1 p daily Add Singulair May need to see new account development executive ICD-9 : 786.1 ICD-10 : R06.1 05/06/2019 Appointment: Belia Reid: [address] [place] [address] FOLLOW UP 05/06/2019 Patient Education: Singulair- [employer] Coupon [id number] [email or web address]/samplemd/resources/[email or web address] Completed 05/06/2019 Appointment: Belia Reid WPtel: [address] [place] [address] US RESCHEDULED 04/30/2019 Visit Diagnosis Plan: Stridor [...] : G25.5 04/29/2019 Appointment: Belia Reid WPtel: [address] [place] [address] Hospital Follow Up 04/29/2019 Patient Education: Valium- [employer] Coupon [id number] [email or web address]/samplemd/resources/getResource/61/[email or web address] Completed 04/29/2019 Visit Diagnosis Plan: Flank pain [...] : R63.5 04/16/2019 Appointment: Pattie Sotomayor [address] [place] [address] ACUTE ILLNESS 04/16/2019 Patient Education: cyclobenzaprine- [employer] Coupon [id number] [email or web address]/samplemd/resources/getResource/[email or web address] Completed 04/16/2019 Visit Diagnosis Plan: Migraine, unspecif ied, not intractable, without status migrainosus Discussion: Increase gabapentin to 600mg po BID ICD-9 : 346.90 ICD-10 : G43.909 04/08/2019 Visit Diagnosis Plan: Generalized pruritus Discussion: Hydroxyzine 25mg po TID for itching and anxiety ICD-9 : 698.9 ICD-10 : L29.9 04/08/2019 Appointment: Belia Reid WPtel: [address] [place] [address] ACUTE ILLNESS 04/08/2019 Visit Diagnosis Plan: Cervicalgia [...] : M75.52 01/22/2019 Appointment: Belia Reid WPtel: [address] [place] [address] Hospital Follow Up 01/22/2019 Visit Diagnosis Plan: Abdominal pain Discussion: urine culture sent to assess for any infection. rocephin given in office to cover for pyelonephritis. instructed to push fluids. call office with any new or worsening symptoms. ICD-9 : 789.00 ICD-10 : R10.9 01/07/2019 Appointment: Pattie Sotomayor [address] [place] [address] ACUTE ILLNESS 01/07/2019 Visit Diagnosis Plan: Low back pain Discussion: Stat C T of abdomen/pelvis now ICD-9 : 724.2 ICD-10 : M54.5 12/24/2018 Appointment: Belia Reid WPtel: [address] [place] [address] FOLLOW UP 12/24/2018 Visit Diagnosis Plan: Migraine, [...] M79.7 11/20/2018 Appointment: Belia Reid WPtel: [address] ACUTE ILLNESS 11/20/2018 Patient Education: baclofen- [employer] Coupon [id number] https://www.[employer]/sampleRobotronica/resources/getResource/61/0h8138v1-ep5c-41pr-61 Completed 11/20/2018 Visit Diagnosis Plan: Migraine, unspecif ied, intractable, without status migrainosus Discussion: toradol/phenergan given in o ffice (60 mg toradol, 12.5 mg phenergan). instructed to call if no improvement or worsening. instructed to follow up with compensation coordinator since headaches are occurring more frequently to make sure vision is not the cause. ICD-9 : 346.91 ICD-10 : G43.919 11/04/2018 Visit Diagnosis Plan: Acute sinusitis, unspecified Dis cussion: zithromax prescribed to cover for sinus infection due to length of symptoms and clinincal s/s. ICD-9 : 461.9 ICD-10 : J01.90 11/04/2018 Appointment: Pattie Sotomayor [address] [place] [address] ACUTE ILLNESS 11/04/2018 Appointment: Belia Reid WPtel: [address] [phone] US CANCELED 09/24/2018 Visit Diagnosis Plan: Type 2 diabetes me llitus with diabetic neuropathy, unspecified Discussion: Retry gabapentin 300mg po q HS ICD-9 : 250.60 ICD-10 : E11.40 09/18/2018 Visit Diagnosis Plan: Vitamin D deficiency, unspecifie d Discussion: Increase Vitamin D3 to 10,000 u daily ICD-9 : 268.9 ICD-10 : E55.9 09/18/2018 Visit Diagnosis Plan: Encounter for gene [facility] adult medical examination without abnormal findings [...] : I10 09/18/2018 Appointment: Belia Reid WPtel: [facility] Annual Well Visit 09/18/2018 Patient Education: gabapentin- OptimizeRX Coupon [phone] https://www.[employer]/samplemd/resources/getResource/61/3h00je23-3ed9-5vmb-p4 Completed 09/18/2018 Visit Diagnosis Plan: Pain in [...] ICD-10 : M54.89 09/08/2018 Appointment: Pattie Sotomayor [address] [place], [place] [address] ACUTE ILLNESS 09/08/2018 Patient Education: prednisone- OptimizeRX Coupon [id number] https://www.[employer].com/samplemd/resources/getResource/61/7g7yg34v-1651-72r2-za Completed 09/08/2018 Visit Diagnosis Plan: Pruritus, unspecified [...] E10.9 08/20/2018 Appointment: [facility]el[facility] [address] [facility] [facility] 08/20/2018 Patient Education: Lexapro- [employer] Coupon [id number] Completed 08/20/2018 Patient Education: hydroxyzine HCl- [employer] Coupon [id number] Completed 08/20/2018 Care Plan: MAMMOGRAM SCREENING LOINC : 2 6347-5 Pending 08/20/2018 Visit Diagnosis Plan: Paroxysmal atrial fibrillation D iscussion: Discuss eliquis need with cardiology at [facility] due to cost ICD-9 : 427.31 ICD-10 : I48.0 06/19/2018 Visit Diagnosis Plan: Hypotension due to drugs Discuss ion: Discussed decreasing cardizem dose due to low BP and edema but sees cardiology next week Follow Up: 1 months ICD-9 : 458.8 ICD-10 : I95.2 06/19/2018 Appointment: Belia Reid WPtel[facility] [address] [facility] [facility] FOLLOW UP 06/19/2018 Visit Diagnosis [...] : R61 06/09/2018 Appointment: Belia Reid WPtel: [address] [place] [address] FOLLOW UP 06/09/2018 Care Plan: CHEST X-RAY 2VW FRONTAL&LATL LOINC : 65937-3 Pending 05/26/2018 Visit Diagnosis Plan: Supraventricular tachycardia [...] : R53.1 05/21/2018 Appointment: Belia Reid WPtel: [address] [place] [address] Hospital Follow Up 05/21/2018 Visit Diagnosis Plan: Cervical disc diso rder with radiculopathy, unspecified cervical region Discussion: Scheduled for surgery on 06/02 10/[address] Faulkner ICD-9 : 722.0 ICD-10 : M50.10 04/16/2018 Appointment: Belia Reid WPtel: [address] [place] [address] Hospital Follow Up 04/16/2018 Visit Diagnosis Plan: [...] : G43.919 04/01/2018 Appointment: Pattie Sotomayor [address] [place] [address] ACUTE ILLNESS 04/01/2018 Appointment: Belia Reid WPtel: [address] [place], [place] [phone] [place] [address] 03/17/2018 Visit Diagnosis Plan: Chronic obstructiv e [...] : E11.65 03/06/2018 Appointment: Belia Reid WPtel: [address] [place] [address] Hospital Follow Up 03/06/2018 Visit Diagnosis Plan: Cervicalgia Discussion: spoke wi th dr. reid about patient. increased gabapentin to bid and started on celebrex bid. tramadrol rx written out to take prn. keep scheduled appt next week for myelogram. ICD-9 : 723.1 ICD-10 : M54.2 02/05/2018 Appointment: Pattie Sotomayor [address] [place], [place] [phone] ACUTE ILLNESS 02/05/2018 Care Plan: X-RAY EXAM NECK SPINE 4/5VWS cervical LOINC : 10543-5 Pending 01/21/2018 Visit Diagnosis Plan: Candidiasis of [...] : M54.2 01/20/2018 Appointment: Pattie Sotomayor [address] [place] [address] ACUTE ILLNESS 01/20/2018 Visit Diagnosis Plan: Pain in thoracic spine Discussio n: Proceed with CT scan of thoracic spine Will likely need PT ICD-9 : 724.1 ICD-10 : M54.6 12/25/2017 Appointment: Belia Reid WPtel: [address] [place] [address] FOLLOW UP 12/25/2017 Care Plan: CT THORAX W/O DYE LOINC : 473 66-0 Pending 12/25/2017 Visit Diagnosis Plan: Pain in thoracic spine Discussio n: Stretches Alternated heat/ice Topical aspercreme with lidocaine Flexeril Recheck 1 week Flu and Pneumovax given ICD-9 : 724.1 ICD-10 : M54.6 12/17/2017 Appointment: Belia Reid WPtel: [address] [place] [address] ACUTE ILLNESS 12/17/2017 Patient Education: Patient Medication [...] : J44.1 10/30/2017 Appointment: Belia Reid WPtel: [address] [place] [address] FOLLOW UP 10/30/2017 Patient Education: Patient Medication Summary Completed 10/30/2017 Visit Diagnosis Plan: Chronic obstructiv e pulmonary disease with acute lower respiratory infection Discussion: Continue SVNs with albuterol q4hrs Add Trelagy 1 inhalation daily Finish steroids Increase water intake Follow Up: 1 weeks ICD-9 : 496 ICD-10 : J44.0 10/23/2017 Appointment: Belia Reidtel: [address] [place], [place] [phone] [place] WORK IN 10/23/2017 Patient Education: Patient Medication Summary Completed 10/23/2017 Appointment: Belia Reid WPtel: [address] [place], [place] [phone] NO SHOW 10/16/2017 Visit Diagnosis [...] : E11.65 09/17/2017 Appointment: Belia Reid WPtel: [address] [place] [address] Annual Well Visit 09/17/2017 Patient Education: Patient Medication Summary Completed 09/17/2017 Appointment: Belia Reid WPtel: [address] [place], [place] [phone] US INJECTION 08/26/2017 Patient Education: Patient Medication Summary Completed 08/26/2017 Appointment: Belia Reid WPtel: [address] [place], [place] [phone] [place] CANCELED 07/31/2017 Visit Diagnosis Plan: Encounter [...] : J20.9 07/19/2017 Appointment: Pattie Sotomayor [address] ACUTE ILLNESS 07/19/2017 Patient Education: Patient Medication Summary Completed 07/19/2017 Care Plan: MAMMOGRAM SCREENING LOINC : 2 6347-5 Pending 07/19/2017 Patient Education: Patient Medication Summary Completed 06/05/2017 Care Plan: LIPID PANEL LOINC : 10053-3 Pending 06/05/2017 Care Plan: A1C HPLC LOINC : 55719-7 Pending 06/05/2017 Visit Diagnosis Plan: Rash and [...] : R21 05/29/2017 Appointment: Pattie Sotomayor [address] [phone] FOLLOW UP 05/29/2017 Patient Education: Patient Medication Summary Completed 05/29/2017 Visit Diagnosis Plan: Tinea corporis Discussion: Diflu can and topical nystatin Follow Up: 2 weeks ICD-9 : 110.5 ICD-10 : B35.4 05/07/2017 Visit Diagnosis Plan: Diarrhea, unspecified Discussion : Diflucan Cholestyramine Recheck 2weeks ICD-9 : 787.91 ICD-10 : R19.7 05/07/2017 Appointment: Belia Reid WPtel: [address] [place], [place] [address] [place] FOLLOW UP 05/07/2017 Patient Education: Patient Medication Summary Completed 05/07/2017 Appointment: Belia Reid WPtel: [address] [place], [place] [address] US RESCHEDULED 04/30/2017 Visit Diagnosis Plan: Chronic obstructiv e pulmonary disease with (acute) exacerbation Discussion: Finish prednisone Continue S VNS with albuterol ICD-9 : 491.21 ICD-10 : J44.1 03/18/2017 Visit Diagnosis Plan: Stridor Discussion: Increase Ati van 0.5mg po to TID routinely for next week then can go back to prn ICD-9 : 786.1 ICD-10 : R06.1 03/18/2017 Appointment: Belia Reid WPtel: [address] [place], [place] [phone] ER Follow UP 03/18/2017 Patient Education: Patient [...] : E11.65 02/27/2017 Appointment: Belia Reid WPtel: [address] [place], [place] [address] [place] FOLLOW UP 02/27/2017 Patient Education: Patient [...] : E11.65 02/22/2017 Appointment: Pattie Sotomayor [address] [place] [address] ACUTE ILLNESS 02/22/2017 Patient Education: Patient Medication [...] : J18.9 01/23/2017 Appointment: Belia Reid WPtel: [facility] [address] ER Follow UP 01/23/2017 Patient Education: Patient Medication Summary Completed 01/23/2017 Appointment: Pattie Sotomayor [address] [place] [address] CANCELED 01/17/2017 Appointment: Pattie Sotomayor [address] [place] [address] Annual Well Visit 01/14/2017 Visit Diagnosis Plan: Type 2 diabetes mellitus with hy perglycemia Discussion: Check CMP, HbA1C Flu shot and Prevnar 13 given Follow Up: 3 months ICD-9 : 250.02 ICD-10 : E11.65 12/20/2016 Visit Diagnosis Plan: Localized edema Discussion: Low Na diet Compression socks/Elevate feet ICD-9 : 782.3 ICD-10 : R60.0 12/20/2016 Appointment: Belia Reid WPtel: [address] [phone] US FOLLOW UP 12/20/2016 Patient Education: Patient [...] Ferreira WPtel: 2305 [facility] ACUTE ILLNESS 10/08/2016 Patient Education: Patient Medication [...] : E11.65 09/19/2016 Appointment: Belia Reid WPtel: [address] [place], [place] [phone] 09/18 confirmed`sl FOLLOW UP 09/19/2016 Patient Education: [...] : R10.84 08/20/2016 Appointment: Belia Reid WPtel: [facility] 08/16 confirmed~sl FOLLOW UP 08/20/2016 Patient [...] : J44.9 06/19/2016 Appointment: Belia Reid WPtel: [address] [place], [place] [phone] 06/18 confirmed ~ Hospital Follow Up 06/19/2016 [...] : Z87.440 06/04/2016 Appointment: Belia Reid WPtel: [address] [place], [place] [phone] 06/01 confirmed~ FOLLOW UP 06/04/2016 Patient Education: [...] : R06.1 05/02/2016 Appointment: Belia Reid WPtel: [address] [place], [place] [phone] 05/01 confirmed ~ Hospital Follow Up 05/02/2016 [...] : N39.0 04/03/2016 Appointment: Belia Reid WPtel: [address] [place] [address] [facility] 04/03/2016 Patient Education: Patient Medication Summary Completed 04/03/2016 Visit Plan: Lungs are clear Her symptoms and exam are all upper airway restriction/constriction Can try supportive care Rx as above Follow up PRN 02/29/2016 Appointment: Lidia Hwang [address] [place] [address] ACUTE ILLNESS 02/29/2016 Patient Education: Patient Medication Summary Completed 02/29/2016 Visit Plan: Toradol/Phenergan today for Migraine Change to Clindamycin to cover lactobacillus for UTI Cover with flagyl due to hx of C. Diff 02/02/2016 Appointment: Belia Reid WPtel: [address] [place] [address] 01/31 confirmed` ACUTE ILLNESS 02/02/2016 Patient Education: Patient Medication Summary Completed 02/02/2016 Visit Plan: Increase neurontin to 300mg q AM and 600mg q PM Discussed neurology re-evaluation Flu shot given Need to check on Pneumonia shot Rx written out for albuterol 01/05/2016 Appointment: Belia Reid WPtel: [address] [place] [address] 01/03 confirmed ~ Annual Well Visit 01/05/2016 Patient Education: Patient Medication Summary Completed 01/05/2016 Visit Plan: Cipro Culture urine hydrate Flexeril refilled Alternate heat and ice for back Increase gabapentin to 300mg po BID Notify if worsens 12/05/2015 Appointment: Bel[facility] Reid [facility]Ptel[facility] [phone] [facility] 11/30 confirmed~sl ACUTE ILLNESS 12/05/2015 Patient Education: Patient Medication Summary Completed 12/05/2015 Patient Education: Patient Medication Summary Completed 10/27/2015 Care Plan: [place]PREH[place] : 19[address]-2 Pending 10/27/2015 Care Plan: A1C HPLC LOINC : 66106-3 Pending 10/27/2015 Visit Plan: Lungs are CTA today and is f eeling improved overall Finish meds as ordered Continue inhalers and neb treatments Discussed migraine treatment options She does not feel she needs anything additional added today Refill of Januvia sent since no samples are available today 10/26/2015 Appointment: Lidia Hwang [address] [place], [place] [phone] Hospital Follow Up 10/26/2015 Appointment: Lidia Hwang [address] [place], [place] [phone] CANCELED 10/26/2015 Patient Education: Patient Medication Summary Completed 10/26/2015 Patient Education: Jesseniaia - 18+ - KENNETH - No [place] Completed 10/26/2015 Visit Plan: Office dip still abnormal Cu lture pending Switch to cipro - stop macrobid Push fluids - avoid caffeine Will call with culture results when available Follow up if worsening 10/05/2015 Appointment: Lidia Hwang [address] [place], [place] [phone] ER Follow UP 10/05/2015 Patient Education: Patient Medication Summary Completed 10/05/2015 Visit Plan: Proceed with PT for document ation of ROM and strength of all extremities Proceed with Power Mobility Device Trial of neurontin 300mg q HS--lyrica helped but patient unable to afford Recheck 1month 09/15/2015 Appointment: Belia Reid WPtel: [phone] [facility] 09/13 confirmed~sl SPECIAL 09/15/2015 Patient Education: Patient Medication Summary Completed 09/15/2015 Visit Plan: Fille out Loan Discharge Pap erwork for total and permanent disability 08/25/2015 Patient Education: Patient Medication Summary Completed 08/25/2015 Visit Plan: Discussed with Dr Anushka Haywood at [facility] of head Will get last date of carotid doppler from her house manager and update if needed 08/24/2015 Appointment: Lidia Hwang [address] [place] [address] 08/22 confirmed~sl ACUTE ILLNESS 08/24/2015 Patient Education: Patient Medication Summary Completed 08/24/2015 Patient Education: Patient Medication Summary Completed 08/24/2015 Care Plan: US EXAM OF HEAD AND NECK carotid Ultrasound LOIN C : 63396-2 Pending 08/24/2015 Visit Plan: Long discussion about diet A ccuchecks daily Check HbA1C, CMP Change requip to mirapex 07/05/2015 Appointment: Belia Reid WPtel: [address] [place] [address] 07/03 confirmed ~sl FOLLOW UP 07/05/2015 Patient Education: Patient Medication Summary Completed 07/05/2015 Visit Plan: Add Breo ellipta 100 1 p BID Continue SVNs with duoneb QID 06/06/2015 Appointment: Belia Reid WPtel: [address] [place] [address] Patient is calling for a ride, then retu rning our call.-sp 06/01 called and patient stated she will know saturday if she can get a ride~sl 06/05 [facility] Hospital Follow Up 06/06/2015 Patient [...] not improving 05/23/2015 Appointment: Huong Osborne WPtel: [facility] [address] ACUTE ILLNESS 05/23/2015 Appointment: Lidia Hwang [facility] [facility] Follow UP 05/23/2015 Patient Education: Patient Medication Summary Completed 05/23/2015 Visit Plan: Check pancreatic enzymes and US of pancreas as patient can't understand why she has diabetes since has no family history Discussed weight, diet, exercise all play an important role in diabetes and are risk factors as well Continue Januvia and accuchecks daily 05/05/2015 Appointment: Belia Reid WPtel: [address] [place], [place] [phone] US FOLLOW UP 05/05/2015 Patient Education: Patient Medication Summary Completed 05/05/2015 Care Plan: US EXAM ABDOM COMPLETE LOINC : 72044-5 Ordered 05/05/2015 Visit Plan: Start Januvia 100mg daily [place] with diflucan and culture urine Accuchecks daily alternating times Recheck 6weeks 03/30/2015 Appointment: Belia Reid WPtel: [address] [place] [address] 03/29 confirmed~lb FOLLOW UP 03/30/2015 Patient Education: Patient Medication Summary Completed 03/30/2015 Appointment: Belia Reid WPtel: [address] [place] [address] 03/01 needs reschedule due to payment and insurance ~sl FOLLOW UP 03/02/2015 Visit Plan: Patient was just in ER last night so has not filled scripts yet Start Carafate and Flagyl and Cipro Add Hyophen 1 po BID Recheck 1mo 02/03/2015 Appointment: Belia Reid WPtel: [address] [place], [place] [phone] 02/02lm ~sl...02/03/15 appt confirmed cn ACUTE I LLNESS 02/03/2015 Patient Education: Patient Medication Summary Completed 02/03/2015 Visit Plan: Warm soaks to vaginal area K elex and Diflucan and observe Zofran to use prn 12/29/2014 Appointment: Belia Reid WPtel: [facility] 12/28 Confirmed ~sl ACUTE ILLNESS 12/29/2014 Patient Education: Patient Medication Summary Completed 12/29/2014 Appointment: Huong Osborne WPtel: [address] [place], [place] [phone] FOLLOW UP 09/24/2014 Appointment: Belia Reid WPtel: [address] [place], [place] [phone] 09/15 confirmed -mf FOLLOW UP 09/16/2014 Visit Plan: Increase requip to 2mg po BI D Increase lyrica to 225mg total a day by adding an extra 75mg in AM Recheck in 2weeks Continue to patch left eye while sleeping 09/02/2014 Appointment: Belia Reid WPtel: [address] [place], [place] [phone] 09/01 appt confirmed Hospital Follow Up 09/02 Patient Education: Patient Medication Summary Completed 09/02/2014 Visit Plan: To [facility] for observat ion to R/O CVA 08/25/2014 Appointment: Huong Osborne WPtel: [address] [place], [place] [phone] ACUTE ILLNESS 08/25/2014 Patient Education: Patient Medication Summary Completed 08/25/2014 Referral: Aaron Jonas WPtel: [facility] [address] [place] location Initiated 04/26/2014 Referral: Brian Srinivasan WPtel: [place] [facility] [id number] Referral Initiated 04/20/2014 Appointment: Belia Reid WPtel: [address] [place], [place] [phone] ER Follow UP 04/01/2014 Patient Education: Patient Medication Summary Completed 04/01/2014 Care Plan: MYELOGRAPHY NECK SPINE LOINC : 39715-4 Ordered 04/01/2014 Visit Plan: Continue Symbicort 160 at 2p BID Continue SVNs with duoneb at least QID Finish Levaquin Recheck 1mo on lyrica 03/16/2014 Appointment: Belia Reid WPtel: [address] [place], [place] [address] 03/15 voicemail FOLLOW UP 03/16/2014 Patient Education: Patient Medication Summary Completed 03/16/2014 Visit Plan: Restart SVNs with duoneb QID Repeat prednisone Levaquin Continue symbicort Keep lyrica at same dose Recheck 1week 03/09/2014 Appointment: Belia Reid WPtel: [address] [place], [place] [phone] FOLLOW UP 03/09/2014 Patient Education: Patient Medication Summary Completed 03/09/2014 Appointment: Belia Reid WPtel: [address] [place], [place] [phone] 03/03 showed up 15 minutes late for appt -- put her on Huong's side for 10:45am FORGIVEN PER DR FOLLOW UP 03/03/2014 Appointment: Huong Osborne WPtel: [address] [place], [place] [phone] FOLLOW UP 03/03/2014 Patient Education: Patient Medication Summary Completed 03/03/2014 Appointment: Huong Osborne WPtel: [address] [place], [place] [phone] ER Follow UP 03/01/2014 Patient Education: Patient Medication Summary Completed 03/01/2014 Visit Plan: Add carafate for this next m onth Increase lyrica to 150mg q HS 02/09/2014 Appointment: Belia Reid WPtel: [address] [place], [place] [phone] [facility] Follow Up 02/09/2014 Patient Education: Patient Medication Summary Completed 02/09/2014 Visit Plan: Increase omeprazole back to 40mg po BID Use requip in AM and add lyrica 75mg q HS Recheck 1mo 12/23/2013 Appointment: Belia Reid WPtel: [address] [place] [address] FOLLOW UP 12/23/2013 Patient Education: Patient Medication Summary Completed 12/23/2013 Patient Education: Patient Medication Summary Completed 12/04/2013 Appointment: Belia Reid WPtel: [address] [place] [address] UA 10/30/2013 Patient Education: Patient Medication Summary Completed 10/30/2013 Appointment: Belia Reid WPtel: [address] [place] [address] UA 10/21/2013 Patient Education: Patient Medication Summary Completed 10/21/2013 Visit Plan: Cryotherapy as above TAC and hydroxyzine to use prn to itching spots and itching SKs Add Advair HFA /21 1 p BID 10/05/2013 Appointment: Belia Reid WPtel: [address] [place] [address] 10/01 pt called and confirmed ACUTE ILLNESS Patient Education: Patient Medication Summary Completed 10/05/2013 Appointment: Belia Reid WPtel: [address] [place] [address] will pay copay and part of past balance FOLLOW U P 08/04/2013 Patient Education: Patient Medication Summary Completed 08/04/2013 Appointment: Belia Reid WPtel: [address] [place], [place] [phone] [place] INJECTION 07/13/2013 Patient Education: Patient Medication Summary Completed 07/13/2013 Appointment: Huong Osborne WPtel: [address] [place], [place] [phone] ACUTE ILLNESS 07/03/2013 Patient Education: Patient Medication Summary Completed 07/03/2013 Visit Plan: Cipro and culture urine 05/27/2013 Appointment: Huong Osborneteabigail: [facility] [facility] [place] 05/26 confirmed appt and notified that balance and copying machine repairer y is due at appt time FOLLOW UP 05/27/2013 Patient Education: Patient Medication Summary Completed 05/27/2013 Appointment: Belia Reid WPtel: [address] [place], [place] [phone] [place] UA 05/25/2013 Patient Education: Patient Medication Summary Completed 05/25/2013 Appointment: Belia Reid WPtel: [address] [place], [place] [phone] US INJECTION 05/04/2013 Patient Education: Patient Medication Summary Completed 05/04/2013 Appointment: Belia Reid WPtel: [address] [place], [place] [phone] US INJECTION 04/17/2013 Patient Education: Patient Medication Summary Completed 04/17/2013 Appointment: Belia Reid WPtel: [address] [place], [place] [phone] US INJECTION 04/15/2013 Appointment: Belia Reid WPtel: [address] [place], [place] [phone] 04/02 vm FOLLOW UP 04/06/2013 Patient Education: Patient Medication Summary Completed 04/06/2013 Visit Plan: Obtain lab results including UA from [facility] 11/10/2012 Appointment: Belia Reid WPtel: [address] [place], [place] [phone] ER Follow UP 11/10/2012 Patient Education: Patient Medication Summary Completed 11/10/2012 Appointment: Belia Reid WPtel: [address] [place], [place] [phone] 10/30/12 patient canceled appt due to fin ances. Offered to work something out, patient declined-LB FOLLOW UP 11/05/2012 Visit Plan: Continue Bystolic at current dose Pt has fwup with Neurology on September 16 09/02/2012 Appointment: Belia Reid WPtel: [address] [place] [address] FOLLOW UP 09/02/2012 Patient Education: Patient Medication Summary Completed 09/02/2012 Visit Plan: Continue bystolic at 5mg chris ly Sees Neurology tomorrow Use oxygen at bedtime 08/04/2012 Appointment: Belia Reid WPtel: [address] [place] [address] FOLLOW UP 08/04/2012 Patient Education: Patient Medication Summary Completed 08/04/2012 Appointment: Belia Reid WPtel: [address] [place] [address] Hospital fwup for 07/21/12. merged appointments FOLLOW UP 07/24/2012 Visit Plan: Start Bystolic 5mg daily for tachycardia Fwup with neurology for further workup Overnight O2 sat 07/21/2012 Appointment: Belia Reid WPtel: [address] [place] [address] Hospital Follow Up 07/21/2012 Patient Education: Patient Medication Summary Completed 07/21/2012 Visit Plan: SVN with Albuterol QID Add A velox 400mg daily Notify if worsens or persists 07/02/2012 Appointment: Belia Reid WPtel: [address] [place] [address] ACUTE ILLNESS 07/02/2012 Patient Education: Patient Medication Summary Completed 07/02/2012 Appointment: Belia Reid WPtel: [address] [place], [place] [phone] INJECTION 06/25/2012 Patient Education: Patient Medication Summary Completed 06/25/2012 Appointment: Belia Reid WPtel: [address] [place], [place] [phone] FOLLOW UP 06/24/2012 Patient Education: Patient Medication Summary Completed 06/24/2012 Appointment: Belia Reid WPtel: [address] [place], [place] [id number] 05/19 left message FOLLOW UP 05/20/2012 Patient [...] po TID 05/08/2012 Appointment: Belia Reid WPtel: [address] [place], [place] [id number] ACUTE ILLNESS 05/08/2012 Patient Education: Patient Medication Summary Completed 05/08/2012 Visit Plan: Continue current meds Contin ue lower dose on pain meds and Diazepam Still waiting on paperwork for botox for Migraines Will restart Neurontin at 600mg po q HS Pt going to stop Depakote due to can't afford 04/22/2012 Appointment: Belia Reid WPtel: [address] [place], [place] [id number] 04/21 Hospital Follow Up 04/22/2012 Patient Education: Patient Medication Summary Completed 04/22/2012 Visit Plan: Injection to shoulder as abo ve Continue current meds Has appointment with neurology on HAs in 02/13/2012 Appointment: Belia Reid WPtel: [address] [place], [place] [id number] Pt does not have $10 copay at [facility] t time - will bring it in next week. Kianna iqbal'ed this. - [place] FOLLOW UP 02/13/2012 Patient Education: Patient Medication Summary Completed 02/13/2012 Visit Plan: Proceed with headache specia list Change nexium to Protonix Phenergan to use prn Sumatriptan to use prn Pt still on Inderal 01/28/2012 Appointment: Belia Reid WPtel: [address] [place], [place] [phone] ER Follow UP 01/28/2012 Patient Education: Patient [...] for sleep 12/26/2011 Appointment: Belia Reid WPtel: [address] [place], [place] [phone] 12/24- appt. confirmed FOLLOW UP 2 Patient Education: Patient Medication Summary Completed 12/26/2011 Appointment: Belia Reid WPtel: [address] [place], [place] [phone] [place] FOLLOW UP 11/14/2011 Patient Education: Patient Medication Summary Completed 11/14/2011 Appointment: Belia Reid WPtel: [address] [place], [place] [phone] FOLLOW UP 09/12/2011 Patient Education: Patient Medication Summary Completed 09/12/2011 Visit Plan: Supportive care Decrease Liseth catalino to 50mg q HS Decrease AM dose of Valium to 5mg q HS Use Endocet sparingly 08/15/2011 Appointment: Belia Reid WPtel: [address] [place], [place] [phone] ER Follow UP 08/15/2011 Patient Education: Patient Medication Summary Completed 08/15/2011 Appointment: Belia Reid WPtel: [address] [place], [place] [phone] [place] Spoke directly to patient yesterday and confirmed the appoin tment. cn ACUTE ILLNESS 08/09/2011 Patient Education: Patient Medication Summary Completed 08/09/2011 Appointment: Belia Reid WPtel: [address] [place], [place] [phone] Hospital Follow Up 07/03/2011 Patient Education: Patient Medication Summary Completed 07/03/2011 Appointment: Belia Reid WPtel: [address] [place], [place] [phone] FOLLOW UP 06/04/2011 Patient Education: Patient Medication Summary Completed 06/04/2011 Visit Plan: Pt. wants "allergy shot" but in fact wants steroid shot. Will take a break from "generic Zyrtec they are getting from [facility]" and try Singulair for 2 weeks. 05/03/2011 Appointment: Iraida Jones WPtel: [address] [place] [address] ACUTE ILLNESS 05/03/2011 Patient Education: Patient Medication Summary Completed 05/03/2011 Visit Plan: Neurontin 400mg q HS for 1we ek then 800mg q HS Decrease requip to 1mg q HS for 2wks then stop Fwup 2mos 04/05/2011 Appointment: Belia Reid WPtel: [address] [place], [place] [phone] FOLLOW UP 04/05/2011 Patient Education: Patient Medication Summary Completed 04/05/2011 Visit Plan: Trial of neurontin in 2wks C ontinue current meds for stomach Pt has procedure with Dr. Ortiz next week for stone removal 03/08/2011 Appointment: Belia Reid WPtel: [address] [place], [place] [phone] Hospital Follow Up 03/08/2011 Patient Education: Patient Medication Summary Completed 03/08/2011 Appointment: Belia Reid WPtel: [address] [place], [place] [phone] FOLLOW UP 02/19/2011 Visit Plan: reports increased [...] with Flagyl 01/24/2011 Appointment: Iraida Jones WPtel: [address] [place] [address] ACUTE ILLNESS 01/24/2011 Patient Education: Patient Medication Summary Completed 01/24/2011 Appointment: Belia Reid WPtel: [address] [place] [address] [place] FOLLOW UP 01/02/2011 Patient Education: Patient Medication Summary Completed 01/02/2011 Appointment: Belia Reid WPtel: [address] [place] [address] FOLLOW UP 12/12/2010 Appointment: Belia Reid WPtel: [address] [place] [address] ACUTE ILLNESS 12/07/2010 Patient Education: Patient Medication Summary Completed 12/07/2010 Visit Plan: Increase Buspar to 10mg po B ID 11/16/2010 Appointment: Belia Reid WPtel: [address] [place] [address] [place] FOLLOW UP 11/16/2010 Patient Education: Patient Medication Summary Completed 11/16/2010 Appointment: Iraida Jones WPtel: [address] [place] [address] ER Follow UP 11/02/2010 Patient Education: Patient Medication Summary Completed 11/02/2010 Visit Plan: Depo-Medrol/Kenalog given fo r allergies Add BuSpar for anxiety Oxycodone one p.o. q.i.d. for number 120 refilled 10/18/2010 Appointment: Belia Reid WPtel: [address] [place] [address] [place] FOLLOW UP 10/18/2010 Patient Education: Patient Medication Summary Completed 10/18/2010 Visit Plan: Continue current meds Discus sed epidurals for back vs PT--will proceed with epidurals to thoracolumbar region to see if helps with pain 09/19/2010 Appointment: Belia Reid WPtel: [address] [place] [address] FOLLOW UP 09/19/2010 Patient Education: Patient Medication Summary Completed 09/19/2010 Visit Plan: DC MS contin Check CT scan t horacic spine Fwup pending above results 09/06/2010 Appointment: Belia Reid WPtel: [address] [place] [address] FOLLOW UP 09/06/2010 Patient Education: Patient Medication Summary Completed 09/06/2010 Visit Plan: Continue current meds Restar t MS contin 15mg po BID and use oxycodone prn Use daily senokot-s 2 po BID 08/10/2010 Appointment: Belia Reid WPtel: [address] [place] [address] FOLLOW UP 08/10/2010 Patient Education: Patient Medication Summary Completed 08/10/2010 Visit Plan: Depomedrol/Kenalog given Pt sees ENT later this month Cont current meds Mammo scheduled 05/11/2010 Appointment: Belia Reid WPtel: [address] [place] [address] FOLLOW UP 05/11/2010 Patient Education: Patient Medication Summary Completed 05/11/2010 Appointment: Belia Reid WPtel: [address] [place], [place] [phone] [place] [address] 05/04/2010 Patient Education: Patient Medication Summary Completed 05/04/2010 Visit Plan: Pt sent to lab for UA 04/28/2010 Appointment: Belia Reid WPtel: [address] [place] [address] 04/28/2010 Patient Education: Patient Medication Summary Completed 04/28/2010 Visit Plan: Check CT angiogram of chest Restart Advair Use proair prn Cont current meds Fwup with Card as schedulec 04/06/2010 Appointment: Belia Reid WPtel: [address] [place], [place] [phone] [place] [address] Follow Up 04/06/2010 Patient Education: Patient Medication Summary Completed 04/06/2010 Visit Plan: Paperwork filled out for pow erchair Depomedrol/kenalog given Pt sees ENT in 2wks to assess nasal obstruction problems 02/09/2010 Appointment: Belia Reidtel: [address] [place], [place] [address] ESTABLISHED PATIENT 02/09/2010 Patient Education: Patient Medication Summary Completed 02/09/2010 Visit Plan: Change Elavil to Trazadone 1 50mg q HS Diflucan and nystatin for tinea cruris 01/05/2010 Appointment: Belia Reid WPtel: [address] [place] [address] FOLLOW UP 01/05/2010 Patient Education: Patient Medication Summary Completed 01/05/2010 Appointment: Belia Reid WPtel: [address] [place] [address] FOLLOW UP 12/07/2009 Patient Education: Patient Medication Summary Completed 12/07/2009 Appointment: Belia Reidtel: [address] [place] [address] FOLLOW UP 11/22/2009 Visit Plan: Cont current meds and await MRI results from Dr. Meadows's office and his final recommendations Will need to follow-up at later date on deviated septum 11/08/2009 Appointment: Belia Reid WPtel: [address] [place], [place] [phone] [place] FOLLOW UP 11/08/2009 Patient Education: Patient Medication Summary Completed 11/08/2009 Visit Plan: Cont PT/OT See Neurosurgery Cont Tortoise shell brace 10/24/2009 Appointment: Belia Reid WPtel: [address] [place], [place] [phone] FOLLOW UP 10/24/2009 Patient Education: Patient Medication Summary Completed 10/24/2009 Appointment: Belia Reid WPtel: [phone] [facility] Hospital Follow Up 10/17/2009 Appointment: Belia Reid WPtel: [address] [place], [place] [id number] ACUTE ILLNESS 07/25/2009 Patient Education: Patient Medication Summary Completed 07/25/2009 Appointment: Belia Reid WPtel: [address] [place], [place] [address] FOLLOW UP 05/26/2009 Patient Education: Patient Medication Summary Completed 05/26/2009 Referral: Chino Balderas WPtel: [address] [facility] [place] Referral Initiated Referral: Merry Vale WPtel: [facility] [id number] Vale will review referral and book appointment Completed Referral: Francisco Javier Yoder WPtel: [address] Patient needs EGD insurance will not inc rease a medication unless this procedure results show a need Completed Referral: Francisco Javier Yoder WPtel: [address] [id number] [place] Referral Historical Reference Referral: Francisco Javier Yoder WPtel: [address] [place] [address] [place] Referral Initiated Instructions Comment . Xrays [...] last date of carotid doppler from her house manager and update if needed . Long discussion [...] from "generic Zyrtec they are getting from [facility]" and try Singulair for 2 weeks. . [...]
--- OUTSIDE RECORDS SUMMARY | 2019-06-24 16:22 | XMS REPORT | CCD ---
Author Author Diana Reid D.O. Organization [facility] Address [address] [place] [address] Phone Care Team Providers Care President [employer] Name Role Phone [facility]ia Reid D.O., PP Unavailable CCM Unavailable Summary Purpose Interface Exchange Insurance Providers Payer name Policy type / Coverage type Covered republican ID Effective Begin Date Effective End Date [employer] MEDICARE Medicare Part B [id number] 2019 Unknown Family History Family History data not found Social History Social History Element Codes Description Effective Dates Tobacco history SNOMED CT: 966435336 Nonsmoker 09/13/2010 Allergies, Adverse Reactions, Alerts Substance Reaction Codes Entered Date Inactivated Date Status Eggs reaction [id number] 09/15/2015 No Inactive Date Active _ Unknown [...] Fill Instructions Levaquin 500 mg tablet RxNorm: 638183 1 Tablet(s) Oral QD 06/16/2019 06/23/2019 Inactive Flagyl 500 mg tablet RxNorm: 959169 1 Tablet(s) Oral three time s a day 06/16/2019 06/23/2019 Inactive Vancocin 125 mg capsule RxNorm: 641355 1 Capsule(s) Oral four t imes a day 06/08/2019 06/18/2019 Inactive diltiazem CD 240 mg capsule,extended release 24 hr RxNorm: 8 98016 1 Capsule(s) Oral QD 05/26/2019 11/21/2019 Active omeprazole 40 mg capsule,delayed release RxNorm: 919338 1 Capsule(s) Oral two times a day 05/26/2019 11/21/2019 Active Flagyl 500 mg tablet RxNorm: 215800 1 Tablet(s) Oral three time s a day 05/26/2019 06/05/2019 Inactive Cipro 250 mg tablet RxNorm: 041266 1 Tablet(s) Oral two times a day 05/26/2019 06/02/2019 Inactive hydroxyzine HCl 25 mg tablet RxNorm: 251151 1 Tablet(s) Oral QPM for itching/aniety 05/21/2019 06/27/2019 Active metoprolol tartrate 25 mg tablet RxNorm: 555263 1 Table t(s) Oral two times a day 05/21/2019 08/19/2019 Active hydroxyzine HCl 25 mg tablet RxNorm: 775025 1 Tablet(s) Oral QPM for itching/aniety 05/13/2019 05/20/2019 Inactive Singulair 10 mg tablet RxNorm: 532371 1 Tablet(s) Oral QPM 05/06/19 20 05/12/2019 Inactive gabapentin 600 mg tablet RxNorm: 787292 1 Tablet(s) Oral QD 020 06/05/2019 Inactive Valium 5 mg tablet RxNorm: 984387 1 Tablet(s) Oral QPM for stri joao/muscle spasm 04/29/2019 05/29/2019 Inactive baclofen 10 mg tablet RxNorm: 550175 1 Tablet(s) Oral QPM for s pasm/neck pain 04/24/2019 05/23/2019 Inactive baclofen 10 mg tablet RxNorm: 172995 1 Tablet(s) Oral QPM for s pasm/neck pain 04/24/2019 04/23/2019 Inactive Novolin N NPH U-100 Insulin isophane 100 unit/mL subcu taneous susp RxNorm: 495651 23 Unit(s) Subcutaneous two times a day 04/20/2019 No Stop Date A ctive cyclobenzaprine 5 mg tablet RxNorm: 740248 1 Tablet(s) Oral three times a day as needed 04/16/2019 04/23/2019 Inactive hydroxyzine HCl 25 mg tablet RxNorm: 195667 1 Tablet(s) Oral three times a day for itching/aniety 04/08/2019 05/12/2019 Inactive gabapentin 600 mg tablet RxNorm: 630227 1 Tablet(s) Oral two ti mes a day 04/08/2019 05/05/2019 Inactive gabapentin 600 mg tablet RxNorm: 481690 1 Tablet(s) Oral two ti mes a day 04/08/2019 04/07/2019 Inactive Novolin N NPH U-100 Insulin isophane 100 unit/mL subcu taneous susp RxNorm: 206550 10 Unit(s) Subcutaneous two times a day 03/03/2019 04/19/2019 I nactive gabapentin 300 mg capsule RxNorm: 983759 1 Capsule(s) O ral every night at bedtime for neuropathy 02/26/2019 04/07/2019 Inactive gabapentin 300 mg capsule RxNorm: 359934 1 Capsule(s) O ral every night at bedtime for neuropathy 02/20/2019 02/25/2019 Inactive pramipexole 1 mg tablet RxNorm: 203853 1 Tablet(s) Oral QPM FOR RESTLESS LEGS (REPLACES REQUIP) 02/12/2019 02/07/2020 Active buspirone 5 mg tablet RxNorm: 232709 TAKE 1 TABLET THREE TIMES MILDRED Y 02/12/2019 05/12/2019 Inactive Lexapro 10 mg tablet RxNorm: 560403 TAKE 1 TABLET EVERY DAY FOR MOO D 01/31/2019 No Stop Date Active Ativan 0.5 mg tablet RxNorm: 791687 TAKE 1 TABLET BY [facility] THREE TIMES DAILY NEEDED FOR ANXIETY 01/26/2019 04/28/2019 Inactive Ativan 0.5 mg tablet RxNorm: 919332 TAKE 1 TABLET BY [facility] THREE TIMES DAILY NEEDED FOR ANXIETY 01/05/2019 01/05/2019 Inactive Levaquin 500 mg tablet RxNorm: 268457 1 Tablet(s) Oral QD 12/25/2018 12/24/2018 Inactive Levaquin 500 mg tablet RxNorm: 542210 1 Tablet(s) Oral QD 12/25/2018 01/04/2019 Inactive baclofen 10 mg tablet RxNorm: 003186 1 Tablet(s) Oral three maico es a day 11/20/2018 01/19/2019 Inactive Ativan 0.5 mg tablet RxNorm: 318063 TAKE 1 TABLET BY [facility] THREE TIMES DAILY NEEDED FOR ANXIETY 11/20/2018 01/04/2019 Inactive gabapentin 300 mg capsule RxNorm: 444462 1 Capsule(s) O ral every night at bedtime for neuropathy 11/20/2018 12/20/2018 Inactive Lexapro 10 mg tablet RxNorm: 803102 1 Tablet(s) PO QD for mood 07/201801/30/2019 Inactive Zithromax Z-Lj 250 mg tablet RxNorm: 749679 Tablet(s) PO take as directed 11/04/2018 11/19/2018 Inactive Insulin Syringe 1 mL 29 gauge x 1/2" RxNorm: 2 s yringes daily with insulin Dx: E11.65 10/08/2018 No Stop Date Active gabapentin 300 mg capsule RxNorm: 817440 1 Capsule(s) PO QHS fo r neuropathy 09/18/2018 10/17/2018 Inactive cyclobenzaprine 5 mg tablet RxNorm: 901891 1 Tablet(s) PO TID a s needed 09/09/2018 09/08/2018 Inactive cyclobenzaprine 5 mg tablet RxNorm: 324024 1 Tablet(s) PO TID a s needed 09/09/2018 10/08/2018 Inactive prednisone 20 mg tablet RxNorm: 787752 1 Tablet(s) PO QD 09/08/2018 0 09/12/2018 Inactive Lantus Solostar U-100 Insulin 100 unit/mL (3 mL) subcu taneous pen RxNorm: 736945 55 Unit(s) SQ QAM 08/28/2018 11/03/2018 Inactive hydroxyzine HCl 25 mg tablet RxNorm: 238375 1 Tablet(s) PO QHS for itching 08/20/2018 05/12/2019 Inactive Lexapro 10 mg tablet RxNorm: 630505 1 Tablet(s) PO QD for mood 08/0210/18/2018 Inactive sumatriptan 100 mg tablet RxNorm: 607423 1 Tablet(s) PO at headache onset. May repeat 1 in two hours if headache remains. Max of 2 per 24 hours 04/02/2018 05/20/2018 Inactive Diflucan 150 mg tablet RxNorm: 261800 1 Tablet(s) PO QD 03/18/2018 Inactive Diflucan 150 mg tablet RxNorm: 983417 1 Tablet(s) PO QD 03/18/2018 Inactive Flagyl 500 mg tablet RxNorm: 655963 1 Tablet(s) PO TID 03/17/2018 Inactive Levaquin 500 mg tablet RxNorm: 127333 1 Tablet(s) PO QD 03/17/2018 Inactive Levaquin 500 mg tablet RxNorm: 932876 1 Tablet(s) PO QD 03/17/2018 Inactive Flagyl 500 mg tablet RxNorm: 905115 1 Tablet(s) PO TID 03/17/2018 Inactive ketoconazole 200 mg tablet RxNorm: 760389 1 Tablet(s) PO QD 019 03/19/2018 Inactive Celebrex 200 mg capsule RxNorm: 273119 1 Capsule(s) PO BID 02/06/20 18 05/20/2018 Inactive tramadol 50 mg tablet RxNorm: 569625 1 Tablet(s) PO TID as needed 1 04/08/2017 05/20/2018 Inactive gabapentin 300 mg capsule RxNorm: 862745 1 Capsule(s) PO BID 201705/20/2018 Inactive Diflucan 150 mg tablet RxNorm: 982896 1 Tablet(s) PO QD 01/20/2018 Inactive pramipexole 1 mg tablet RxNorm: 803880 1 Tablet(s) PO Q PM FOR RESTLESS LEGS (REPLACES REQUIP) 01/08/2018 02/11/2019 Inactive cyclobenzaprine 10 mg tablet RxNorm: 960789 1 Tablet(s) PO TID as needed for muscle spasm 12/17/2017 05/20/2018 Inactive pramipexole 1 mg tablet RxNorm: 891972 TAKE 1 TABLET BY MOUTH ONCE DAILY IN THE EVENING FOR RESTLESS LEGS (REPLACES REQUIP) 12/04/2017 01/05/2018 Inac tive Amaryl 4 mg tablet RxNorm: 391259 1 Tablet(s) PO BID replaces 2mg 0 11/05/2017 12/16/2017 Inactive Singulair 10 mg tablet RxNorm: 308384 1 Tablet(s) PO QHS for al lergies/lungs 10/30/2017 12/16/2017 Inactive Diflucan 100 mg tablet RxNorm: 689213 1 Tablet(s) PO QD 10/23/2017 Inactive Ativan 0.5 mg tablet RxNorm: 030270 TAKE 1 TABLET BY MOUTH THRE E TIMES DAILY 08/30/2017 11/20/2018 Inactive buspirone 5 mg tablet RxNorm: 557858 1 Tablet(s) PO TID 07/11/2017 Inactive propranolol 60 mg tablet RxNorm: 199067 1 Tablet(s) PO BID repl aces 40mg dose 06/26/2017 12/16/2017 Inactive Amaryl 4 mg tablet RxNorm: 249815 1 Tablet(s) PO BID replaces 2mg 0 06/12/2017 11/05/2017 Inactive omeprazole 40 mg capsule,delayed release RxNorm: 169368 1 Capsule(s) PO BID TAKE ONE CAPSULE BY MOUTH TWICE DAILY 05/30/2017 11/25/2017 Inactive pramipexole 1 mg tablet RxNorm: 364903 1 Tablet(s) PO Q PM for restless legs--replaces requip 05/30/2017 11/25/2017 Inactive amitriptyline 50 mg tablet RxNorm: 646978 1 Tablet(s) PO QHS 201709/16/2017 Inactive Diflucan 100 mg tablet RxNorm: 757876 1 Tablet(s) PO BID 05/07/2017 0 05/20/2017 Inactive nystatin (bulk) 100 million unit powder RxNorm: Application TO P BID 05/07/2017 05/20/2018 Inactive cholestyramine (with sugar) 4 gram oral powder RxNorm: 305912 1 Unit Dose PO QD 05/07/2017 01/20/2018 Inactive Ativan 0.5 mg tablet RxNorm: 197047 TAKE ONE TABLET BY MOUTH TH REE TIMES DAILY 05/01/2017 09/02/2017 Inactive Trulicity 1.5 mg/0.5 mL subcutaneous pen injector RxNorm: 15 68704 1 Unit Dose SQ WEEKLY 02/22/2017 03/23/2017 Inactive doxycycline hyclate 100 mg capsule RxNorm: 3963749 1 Capsule(s) PO BID 01/23/2017 02/05/2017 Inactive Amaryl 4 mg tablet RxNorm: 183601 1 Tablet(s) PO BID replaces 2mg 1 03/25/2016 05/22/2017 Inactive magnesium oxide 400 mg capsule RxNorm: 337014 1 Capsule(s) PO QD 07/18/2017 Inactive Ativan 0.5 mg tablet RxNorm: 657722 TAKE ONE TABLET BY MOUTH TH REE TIMES DAILY 01/17/2017 05/01/2017 Inactive Amaryl 2 mg tablet RxNorm: 460956 1 Tablet(s) PO BID 12/27/201601/22 Inactive Amaryl 2 mg tablet RxNorm: 887228 1 Tablet(s) PO BID 12/26/201612/26 Inactive Ativan 0.5 mg tablet RxNorm: 079665 TAKE ONE TABLET BY MOUTH TH REE TIMES DAILY 12/05/2016 01/18/2017 Inactive pramipexole 1 mg tablet RxNorm: 163458 1 Tablet(s) PO Q PM for restless legs--replaces requip 11/26/2016 05/30/2017 Inactive Mobic 15 mg tablet RxNorm: 055559 1 Tablet(s) PO QD 10/08/20162016 Inactive cyclobenzaprine 5 mg tablet RxNorm: 727477 1/2- 1 Tablet(s) PO TID 10/08/2016 10/17/2016 Inactive Ativan 0.5 mg tablet RxNorm: 257126 1 Tablet(s) PO TID 09/20/201607/2016 Inactive amitriptyline 50 mg tablet RxNorm: 023332 1 Tablet(s) PO QHS 201605/30/2017 Inactive propranolol 60 mg tablet RxNorm: 167333 1 Tablet(s) PO BID repl aces 40mg dose 09/19/2016 06/26/2017 Inactive Ativan 0.5 mg tablet RxNorm: 172811 1 Tablet(s) PO TID 08/20/2016 Inactive omeprazole 40 mg capsule,delayed release RxNorm: 536899 1 Capsule(s) PO BID TAKE ONE CAPSULE BY MOUTH TWICE DAILY 08/20/2016 05/30/2017 Inactive amitriptyline 50 mg tablet RxNorm: 327962 1 Tablet(s) PO QHS 201609/18/2016 Inactive pramipexole 1 mg tablet RxNorm: 020548 1 Tablet(s) PO Q PM for restless legs--replaces requip 07/23/2016 11/25/2016 Inactive Amaryl 2 mg tablet RxNorm: 465884 1 Tablet(s) PO BID 07/23/201612/27 Inactive propranolol 40 mg tablet RxNorm: 961682 1 Tablet(s) PO BID 07/13/19 17 09/18/2016 Inactive Ativan 0.5 mg tablet RxNorm: 397714 1 Tablet(s) PO QID 06/19/2016 Inactive Amaryl 2 mg tablet RxNorm: 621763 1 Tablet(s) PO BID 06/19/201607/22 Inactive Ativan 0.5 mg tablet RxNorm: 865565 1 Tablet(s) PO QID 06/19/2016 Inactive buspirone 5 mg tablet RxNorm: 290041 1 Tablet(s) PO TID 06/19/2016 Inactive Ativan 0.5 mg tablet RxNorm: 209229 1 Tablet(s) PO BID 05/24/2016 Inactive buspirone 5 mg tablet RxNorm: 239542 1 Tablet(s) PO TID 05/23/2016 Inactive Macrobid 100 mg capsule RxNorm: 246583 1 Capsule(s) PO QOD 05/03/19 17 10/07/2016 Inactive pramipexole 1 mg tablet RxNorm: 515400 Tablet(s) 1 Tabl et(s) PO QPM for restless legs--replaces requip 04/26/2016 06/24/2016 Inactive propranolol 40 mg tablet RxNorm: 007145 TAKE ONE TABLET BY MOUT H TWICE DAILY 04/26/2016 06/24/2016 Inactive Detrol LA 4 mg capsule,extended release RxNorm: 529035 1 Capsul e(s) PO QHS 04/03/2016 05/02/2016 Inactive prednisone 20 mg tablet RxNorm: 623666 1 Tablet(s) PO QD 02/29/2016 0 03/04/2016 Inactive Actos 30 mg tablet RxNorm: 971386 TAKE ONE TABLET BY MOUTH ONCE DAILY 02/27/2016 12/19/2016 Inactive clindamycin 300 mg capsule RxNorm: 627200 1 Capsule(s) PO TID 02/0102/08/2016 Inactive Flagyl 500 mg tablet RxNorm: 846940 1 Tablet(s) PO BID 02/02/201609/2015 Inactive omeprazole 40 mg capsule,delayed release RxNorm: 949164 TAKE ONE CAPSULE BY MOUTH TWICE DAILY 01/15/2016 07/12/2016 Inactive gabapentin 300 mg capsule RxNorm: 891749 1 Capsule(s) PO QAM an d 2 po q HS 01/05/2016 06/18/2016 Inactive gabapentin 300 mg capsule RxNorm: 716501 1 Capsule(s) P O BID 1 Capsule(s) PO QHS 12/05/2015 01/04/2016 Inactive cyclobenzaprine 10 mg tablet RxNorm: 599217 1 Tablet(s) PO TID for spasm as needed for muscle spasm 12/05/2015 06/18/2016 Inactive ciprofloxacin 250 mg tablet RxNorm: 843239 1 Tablet(s) PO BID 12/0412/14/2015 Inactive pramipexole 1 mg tablet RxNorm: 325151 Tablet(s) 1 Tabl et(s) PO QPM for restless legs--replaces requip 11/07/2015 11/26/2016 Inactive Januvia 100 mg tablet RxNorm: 582146 1 Tablet(s) PO QD 10/26/201504/2015 Inactive propranolol 40 mg tablet RxNorm: 526069 TAKE ONE TABLET BY MOUT H TWICE DAILY 10/25/2015 04/21/2016 Inactive gabapentin 300 mg capsule RxNorm: 966094 1 Capsule(s) PO QHS 201512/04/2015 Inactive Cipro 500 mg tablet RxNorm: 754566 1 Tablet(s) PO BID 10/05/201511/2015 Inactive pramipexole 1 mg tablet RxNorm: 144323 Tablet(s) 1 Tabl et(s) PO QPM for restless legs--replaces requip 10/04/2015 11/02/2015 Inactive propranolol 40 mg tablet RxNorm: 569498 TAKE ONE TABLET BY MOUT H TWICE DAILY 09/26/2015 10/24/2015 Inactive Amaryl 2 mg tablet RxNorm: 565735 1 Tablet(s) PO QD 09/15/20152016 Inactive gabapentin 300 mg capsule RxNorm: 287730 1 Capsule(s) PO QHS 201510/14/2015 Inactive buspirone 5 mg tablet RxNorm: 124885 1 Tablet(s) PO TID 09/15/2015 Inactive pramipexole 1 mg tablet RxNorm: 311245 Tablet(s) 1 Tabl et(s) PO QPM for restless legs--replaces requip 09/08/2015 10/03/2015 Inactive pramipexole 1 mg tablet RxNorm: 879736 1 Tablet(s) PO Q PM for restless legs--replaces requip 08/08/2015 09/08/2015 Inactive Amaryl 2 mg tablet RxNorm: 629435 1 Tablet(s) PO QD 07/07/20152015 Inactive pramipexole 1 mg tablet RxNorm: 945242 1 Tablet(s) PO Q PM for restless legs--replaces requip 07/05/2015 08/03/2015 Inactive ropinirole 2 mg tablet RxNorm: 504248 TAKE ONE TABLET BY MOUTH TWICE DAILY 05/09/2015 09/14/2015 Inactive Diflucan 100 mg tablet RxNorm: 789401 1 Tablet(s) PO QD 03/30/2015 Inactive propranolol 40 mg tablet RxNorm: 001865 1 Tablet(s) PO BID 02/24/20 15 08/21/2015 Inactive [SAVINGS FOR UNINSURED PATIE NTS -- BIN:392288, PCN: ASPROD1, Group: AME08, ID# [id number], Process claim through [employer], for questions: . THIS IS NOT INSURANCE.] Flagyl 500 mg tablet RxNorm: 988226 1 Tablet(s) PO BID 02/03/201502/2015 Inactive Cipro 500 mg tablet RxNorm: 488760 1 Tablet(s) PO BID 02/03/201502/01 Inactive Carafate 1 gram tablet RxNorm: 737649 1 Tablet(s) PO QID make i nto slurry 02/03/2015 09/14/2015 Inactive ondansetron HCl 4 mg tablet RxNorm: 165275 1 Tablet(s) PO Q4H as needed for nausea 12/29/2014 01/04/2016 Inactive Diflucan 100 mg tablet RxNorm: 677582 1 Tablet(s) PO QD 12/29/2014 Inactive Keflex 500 mg capsule RxNorm: 799986 1 Capsule(s) PO TID 12/29/2014 1 03/09/2014 Inactive omeprazole 40 mg capsule,delayed release RxNorm: 439784 1 Capsu le(s) PO BID 12/27/2014 12/21/2015 Inactive [SAVINGS FOR UNINSUR ED PATIENTS -- BIN:224625, PCN: ASPROD1, Group: AME08, ID# [id number], Process claim through [employer], for questions: . THIS IS NOT INSURANCE.] ropinirole 2 mg tablet RxNorm: 107194 1 Tablet(s) PO BID 09/29/2014 0 03/27/2015 Inactive [SAVINGS FOR UNINSURED PATIENTS -- BIN:0 04192, PCN: ASPROD1, Group: AME08, ID# [id number], Process claim through [email or web address], for questions: . THIS IS NOT INSURANCE.] buspirone 5 mg tablet RxNorm: 692505 1 Tablet(s) PO TID 09/17/2014 Inactive ropinirole 2 mg tablet RxNorm: 061622 1 Tablet(s) PO BID 09/02/2014 0 09/28/2014 Inactive [SAVINGS FOR UNINSURED PATIENTS -- BIN:0 09581, PCN: ASPROD1, Group: AME08, ID# [id number], Process claim through [employer], for questions: . THIS IS NOT INSURANCE.] Zyrtec 10 mg tablet RxNorm: 4124661 1 Tablet(s) PO QD 09/02/201412/02 Inactive propranolol 40 mg tablet RxNorm: 021802 1 Tablet(s) PO BID 07/21/19 15 02/23/2015 Inactive [SAVINGS FOR UNINSURED PATIE NTS -- BIN:285008, PCN: ASPROD1, Group: AME08, ID# [id number], Process claim through [employer], for questions: . THIS IS NOT INSURANCE.] ropinirole 2 mg tablet RxNorm: 398500 1 Tablet(s) PO QHS 05/14/2014 0 09/01/2014 Inactive [SAVINGS FOR UNINSURED PATIENTS -- BIN:0 44493, PCN: ASPROD1, Group: AME08, ID# [id number], Process claim through [employer], for questions: . THIS IS NOT INSURANCE.] cyclobenzaprine 10 mg tablet RxNorm: 845066 1 Tablet(s) PO QHS for spasm 04/06/2014 09/01/2014 Inactive ipratropium-albuterol 0.5 mg-3 mg(2.5 mg base)/3 mL ne bulization soln RxNorm: 2716283 1 Unit Dose INH Q4H 03/16/2014 No Stop Date Active [SAVINGS FOR UNINSURED PATIENTS -- BIN:273111, PCN: ASPROD1, Group: AME08, ID# [id number], Process claim through [employer], for questions: . THIS IS NOT INSURANCE.] prednisone 20 mg tablet RxNorm: 566019 1 Tablet(s) PO BID 03/09/2014 03/15/2014 Inactive [SAVINGS FOR UNINSURED PATIENTS -- BIN:0 67977, PCN: ASPROD1, Group: AME08, ID# [id number], Process claim through [employer], for questions: . THIS IS NOT INSURANCE.] ipratropium-albuterol 0.5 mg-3 mg(2.5 mg base)/3 mL ne bulization soln RxNorm: 7704868 1 Unit Dose INH Q4H 03/09/2014 03/15/2014 Inactive [SAVINGS FOR UNINSURED PATIENTS -- BIN:330659, PCN: ASPROD1, Group: AME08, ID# [id number], Process claim through [employer], for questions: . THIS IS NOT INSURANCE.] Levaquin 500 mg tablet RxNorm: 080899 1 Tablet(s) PO QD 03/09/2014 Inactive [SAVINGS FOR UNINSURED PATIENTS -- BIN:0 29075, PCN: ASPROD1, Group: AME08, ID# [id number], Process claim through [employer], for questions: . THIS IS NOT INSURANCE.] Carafate 1 gram tablet RxNorm: 260928 1 Tablet(s) PO AC & HS ma ke into slurry 02/09/2014 09/01/2014 Inactive [SAVINGS FOR UNINSUR ED PATIENTS -- BIN:583243, PCN: ASPROD1, Group: AME08, ID# [id number], Process claim through [employer], for questions: . THIS IS NOT INSURANCE.] Fioricet 50 mg-300 mg-40 mg capsule RxNorm: 8545060 1-2 Capsule(s) PO Q4H as needed for headache --max of 6 a day 02/09/2014 09/01/2014 Inactive [SAVINGS FOR UNINSURED PATIENTS -- BIN:572113, PCN: ASPROD1, Group: AME08, ID# [id number], Process claim through [employer], for questions: . THIS IS NOT INSURANCE.] propranolol 40 mg tablet RxNorm: 491391 1 Tablet(s) PO BID 12/08/19 14 06/04/2014 Inactive [SAVINGS FOR UNINSURED PATIE NTS -- BIN:602424, PCN: ASPROD1, Group: AME08, ID# [id number], Process claim through [employer], for questions: . THIS IS NOT INSURANCE.] buspirone 5 mg tablet RxNorm: 065498 1 Tablet(s) PO TID 12/02/2013 Inactive omeprazole 40 mg capsule,delayed release RxNorm: 302881 1 Capsu le(s) PO BID 11/25/2013 11/19/2014 Inactive [SAVINGS FOR UNINSUR ED PATIENTS -- BIN:672058, PCN: ASPROD1, Group: AME08, ID# [id number], Process claim through [employer], for questions: . THIS IS NOT INSURANCE.] ropinirole 2 mg tablet RxNorm: 606271 1 Tablet(s) PO QHS 11/10/2013 0 05/08/2014 Inactive [SAVINGS FOR UNINSURED PATIENTS -- BIN:0 73266, PCN: ASPROD1, Group: AME08, ID# [id number], Process claim through [employer], for questions: . THIS IS NOT INSURANCE.] Cipro 500 mg tablet RxNorm: 765687 1 Tablet(s) PO BID 10/21/201312/03 Inactive [SAVINGS FOR UNINSURED PATIENTS -- BIN:0 38119, PCN: ASPROD1, Group: AME08, ID# [id number], Process claim through [employer], for questions: . THIS IS NOT INSURANCE.] hydroxyzine HCl 25 mg tablet RxNorm: 414221 1 Tablet(s) PO Q4-6 H as needed 10/05/2013 01/04/2016 Inactive [SAVINGS FOR UNINSUR ED PATIENTS -- BIN:520956, PCN: ASPROD1, Group: AME08, ID# [id number], Process claim through [employer], for questions: . THIS IS NOT INSURANCE.] triamcinolone acetonide 0.1 % topical cream RxNorm: 7502286 Appl ication TOP BID 10/05/2013 09/01/2014 Inactive [SAVINGS FOR UNINSUR ED PATIENTS -- BIN:871061, PCN: ASPROD1, Group: AME08, ID# [id number], Process claim through [employer], for questions: . THIS IS NOT INSURANCE.] albuterol sulfate HFA 90 mcg/actuation aerosol inhaler RxNor m: 3812449 2 Puff(s) INH Q4H as needed for cough 10/01/2013 12/22/2013 Inactive [MAKSIM INGS FOR UNINSURED PATIENTS -- BIN:822633, PCN: ASPROD1, Group: AME08, ID# [id number], Process claim through [employer], for questions: . THIS IS NOT INSURANCE.] propranolol 40 mg tablet RxNorm: 707063 1 Tablet(s) PO BID 09/02/19 14 11/29/2013 Inactive [SAVINGS FOR UNINSURED PATIE NTS -- BIN:992508, PCN: ASPROD1, Group: AME08, ID# [id number], Process claim through [employer], for questions: . THIS IS NOT INSURANCE.] propranolol 40 mg tablet RxNorm: 755897 1 Tablet(s) PO BID 08/05/19 14 08/31/2013 Inactive [SAVINGS FOR UNINSURED PATIE NTS -- BIN:673319, PCN: ASPROD1, Group: AME08, ID# [id number], Process claim through [employer], for questions: . THIS IS NOT INSURANCE.] Toprol XL 50 mg tablet,extended release RxNorm: 757569 1 Tablet (s) PO QHS 07/23/2013 08/03/2013 Inactive Macrobid 100 mg capsule RxNorm: 769724 1 Capsule(s) PO BID 07/04/19 14 07/09/2013 Inactive Toprol XL 50 mg tablet,extended release RxNorm: 262995 1 Tablet (s) PO QHS 05/28/2013 06/26/2013 Inactive ciprofloxacin 500 mg tablet RxNorm: 611184 1 Tablet(s) PO BID 05/2706/02/2013 Inactive Bystolic 5 mg tablet RxNorm: 317254 1 Tablet(s) PO QD 05/27/201305/03 Inactive ropinirole 2 mg tablet RxNorm: 165128 1 Tablet(s) PO QHS 04/22/2013 0 11/09/2013 Inactive Cipro 250 mg tablet RxNorm: 619280 1 Tablet(s) PO BID 04/06/201311/2013 Inactive ropinirole 2 mg tablet RxNorm: 878944 1 Tablet(s) PO QHS 02/17/2013 0 04/21/2013 Inactive Amaryl 2 mg tablet RxNorm: 318332 1 Tablet(s) PO QAM 11/11/201211/10 Inactive Amaryl 2 mg tablet RxNorm: 653285 1 Tablet(s) PO QAM 11/11/201204/05 Inactive omeprazole 40 mg capsule,delayed release RxNorm: 675370 1 Capsu le(s) PO BID 08/14/2012 08/08/2013 Inactive Bystolic 5 mg tablet RxNorm: 533172 1 Tablet(s) PO QD 08/14/201205/03 Inactive propranolol 60 mg tablet RxNorm: 958705 Tablet(s) PO TAKE 1 TAB LET TWICE DAILY 08/01/2012 09/01/2012 Inactive Bystolic 5 mg tablet RxNorm: 598205 1 Tablet(s) PO QD 07/21/201207/02 Inactive Bystolic 5 mg tablet RxNorm: 626056 1 Tablet(s) PO QD 07/21/201207/03 Inactive Prilosec 40 mg capsule,delayed release RxNorm: 902334 1 Capsule (s) PO BID 06/24/2012 07/21/2012 Inactive buspirone 10 mg tablet RxNorm: 438195 1 Tablet(s) PO TID 05/08/2012 0 05/23/2016 Inactive Valium 10 mg tablet RxNorm: 331856 1 Tablet(s) PO BID 04/02/201207/03 Inactive Endocet 10 mg-325 mg tablet RxNorm: 0939358 1 Tablet(s) PO QID 03/0607/21/2012 Inactive as needed for severe pain Valium 10 mg tablet RxNorm: 173057 1 Tablet(s) PO BID 02/27/2012 No S top Date Active Endocet 10 mg-325 mg tablet RxNorm: 1641566 1 Tablet(s) PO QID 02/0203/27/2012 Inactive as needed for severe pain Endocet 10 mg-325 mg tablet RxNorm: 0549492 1 Tablet(s) PO QID 01/0302/26/2012 Inactive as needed for severe pain Valium 10 mg tablet RxNorm: 990251 1 Tablet(s) PO BID 01/29/2012 No S top Date Active Protonix 40 mg tablet,delayed release RxNorm: 008586 1 Tablet(s ) PO QD 01/28/2012 07/21/2012 Inactive metformin ER 500 mg tablet,extended release 24 hr RxNorm: 86 0977 1 Tablet(s) PO QD 12/26/2011 07/20/2012 Inactive Trazadone 150 mg Tablet RxNorm: 1 Tablet(s) PO QHS prn sleep 1 04/23/2012 Inactive Endocet 10 mg-325 mg tablet RxNorm: 1930770 1 Tablet(s) PO QID 12/0301/24/2012 Inactive as needed for severe pain Nexium 40 mg capsule,delayed release RxNorm: 891010 1 Capsule(s ) PO QD 12/26/2011 01/27/2012 Inactive Symbicort 160 mcg-4.5 mcg/actuation HFA Aerosol Inhaler RxNo rm: 4435813 2 Puff(s) INH BID 12/04/2011 07/21/2012 Inactive Endocet 10 mg-325 mg tablet RxNorm: 3919787 1 Tablet(s) PO QID 11/0312/25/2011 Inactive as needed for severe pain metformin ER 500 mg tablet,extended release 24 hr RxNorm: 86 0977 1 Tablet(s) PO QD 11/20/2011 12/19/2011 Inactive metformin ER 500 mg tablet,extended release 24 hr RxNorm: 86 0977 1 Tablet(s) PO QD 11/20/2011 11/19/2011 Inactive amitriptyline 100 mg tablet RxNorm: 310421 Tablet(s) PO QHS 1 a nd 1/2 tabs QHS 11/12/2011 11/13/2011 Inactive Valium 10 mg tablet RxNorm: 391293 1 Tablet(s) PO BID 11/09/2011 No S top Date Active Endocet 10 mg-325 mg tablet RxNorm: 7948216 1 Tablet(s) PO QID 10/0211/14/2011 Inactive as needed for severe pain Aricept 10 mg Tab RxNorm: 606604 1 Tablet(s) PO QD 10/05/2011 013 Inactive Valium 10 mg tablet RxNorm: 187373 1 Tablet(s) PO BID 10/05/2011 No S top Date Active Endocet 10 mg-325 mg Tab RxNorm: 8643242 1 Tablet(s) PO QID 012 10/09/2011 Inactive as needed for severe pain Aricept 10 mg Tab RxNorm: 746550 1 Tablet(s) PO QD 08/14/2011 Inactive Endocet 10 mg-325 mg Tab RxNorm: 2128683 1 Tablet(s) PO QID 012 08/31/2011 Inactive as needed for severe pain Valium 10 mg Tab RxNorm: 063012 1 Tablet(s) PO BID 08/02/2011 No Stop Date Active propranolol 60 mg tablet RxNorm: 250009 1 Tablet(s) PO BID 07/26/19 12 09/11/2011 Inactive amitriptyline 100 mg tablet RxNorm: 149991 Tablet(s) PO QHS 1 a nd /2 tabs QHS 06/20/2011 09/11/2011 Inactive buspirone 10 mg tablet RxNorm: 910009 1 Tablet(s) PO BID 06/18/2011 0 09/15/2011 Inactive propranolol 60 mg Tab RxNorm: 229328 1 Tablet(s) PO BID 06/18/2011 Inactive gabapentin 800 mg Tab RxNorm: 104998 1 Tablet(s) PO BID 06/18/2011 Inactive ropinirole 2 mg tablet RxNorm: 973453 1 Tablet(s) PO QHS 05/29/2011 0 08/26/2011 Inactive trimethoprim 100 mg Tab RxNorm: 355722 1 Tablet(s) PO QHS 05/29/2011 07/21/2012 Inactive Endocet 10 mg-325 mg Tab RxNorm: 1452676 1 Tablet(s) PO QID 012 2011 Inactive as needed for severe pain Valium 10 mg Tab RxNorm: 143032 1 Tablet(s) PO QHS N eed to take med as prescribed. this is a 40 day RX. No early fills. 05/17/2011 05/20/2018 Inactive propranolol 60 mg Tab RxNorm: 692654 1 Tablet(s) PO BID 04/16/2011 Inactive Neurontin 800 mg Tab RxNorm: 691401 1 Tablet(s) PO QHS 04/05/201103/2011 Inactive Endocet 10 mg-325 mg Tab RxNorm: 4763291 1 Tablet(s) PO QID 012 05/02/2011 Inactive as needed for severe pain oxycodone-acetaminophen 10 mg-325 mg tablet RxNorm: 0353813 1 Ta blet(s) PO Q4H 03/28/2011 05/19/2012 Inactive Valium 10 mg Tab RxNorm: 146517 1 Tablet(s) PO QHS 03/28/2011 012 Inactive buspirone 10 mg Tab RxNorm: 061610 1 Tablet(s) PO BID 03/27/201106/02 Inactive propranolol 60 mg Tab RxNorm: 488776 1 Tablet(s) PO BID 03/19/2011 Inactive Klor-Con M20 20 mEq Tab RxNorm: 0697614 1 Tablet(s) PO QD 03/19/2011 07/21/2012 Inactive Aricept 10 mg Tab RxNorm: 428514 1 Tablet(s) PO QD 02/27/2011 012 Inactive propranolol 60 mg Tab RxNorm: 888991 1 Tablet(s) PO BID 02/19/2011 Inactive omeprazole 40 mg capsule,delayed release RxNorm: 882297 1 Capsu le(s) PO BID 01/24/2011 05/23/2011 Inactive clindamycin 300 mg capsule RxNorm: 906432 1 Capsule(s) PO TID 01/2402/02/2011 Inactive propranolol 60 mg Tab RxNorm: 619000 1 Tablet(s) PO BID 01/22/2011 No Stop Date Active nystatin 100,000 unit/g Topical Cream RxNorm: 687736 Applicatio n TOP BID 01/15/2011 01/14/2011 Inactive to rash for 2-4 week s Diflucan 200 mg Tab RxNorm: 128895 1 Tablet(s) PO QD 01/15/201101/28 Inactive buspirone 10 mg Tab RxNorm: 565246 1 Tablet(s) PO BID 01/08/201103/05 Inactive Valium 10 mg Tab RxNorm: 801895 1 Tablet(s) PO QHS 01/05/2011 012 Inactive Diflucan 200 mg Tab RxNorm: 191217 1 Tablet(s) PO QD 01/01/201101/14 Inactive Diflucan 200 mg Tab RxNorm: 314628 1 Tablet(s) PO QD 12/18/201012/31 Inactive Valium 10 mg Tab RxNorm: 992692 1 Tablet(s) PO QHS 12/12/2010 011 Inactive Diflucan 200 mg Tab RxNorm: 518108 1 Tablet(s) PO QD 12/07/201012/18 Inactive Aricept 10 mg Tab RxNorm: 809723 1 Tablet(s) PO QD 11/20/2010 011 Inactive ropinirole 1 mg Tab RxNorm: 134941 1 Tablet(s) PO QHS 11/16/201005/03 Inactive enalapril maleate 5 mg Tab RxNorm: 434385 1 Tablet(s) PO QD 011 05/20/2018 Inactive buspirone 10 mg Tab RxNorm: 457241 1 Tablet(s) PO BID 11/16/201012/02 Inactive Valium 10 mg Tab RxNorm: 983309 1 Tablet(s) PO QHS 11/07/2010 011 Inactive Pyridium 100 mg Tab RxNorm: 6221891 1 Tablet(s) PO TID 11/02/201004/2010 Inactive Macrobid 100 mg Cap RxNorm: 5683368 1 Capsule(s) PO BID 11/02/2010 Inactive buspirone 10 mg Tab RxNorm: 913931 1 Tablet(s) PO QHS 10/18/201005/02 Inactive propranolol 60 mg Tab RxNorm: 670601 1 Tablet(s) PO BID 09/18/2010 Inactive Valium 10 mg Tab RxNorm: 302893 1 Tablet(s) PO QHS 09/05/2010 011 Inactive Aricept 10 mg Tab RxNorm: 917596 1 Tablet(s) PO QD 08/14/2010 011 Inactive Valium 10 mg Tab RxNorm: 713948 1 Tablet(s) PO QHS 06/26/2010 011 Inactive ropinirole 1 mg Tab RxNorm: 690582 1 Tablet(s) PO QHS 06/19/201010/02 Inactive omeprazole 40 mg Cap, delayed release RxNorm: 406374 1 Capsule( s) PO QD 06/07/2010 10/04/2010 Inactive Endocet 10 mg-325 mg Tab RxNorm: 2498639 1 Tablet(s) PO QID as needed for severe pain 06/07/2010 03/07/2011 Inactive Endocet 10 mg-325 mg Tab RxNorm: 8582414 1 Tablet(s) PO QID as needed for severe pain 05/04/2010 06/02/2010 Inactive Valium 10 mg Tab RxNorm: 875462 1 Tablet(s) PO QHS 05/01/2010 011 Inactive propranolol 60 mg Tab RxNorm: 775297 1 Tablet(s) PO BID 04/03/2010 Inactive Valium 10 mg Tab RxNorm: 648042 1 Tablet(s) PO QHS 03/28/2010 011 Inactive omeprazole 40 mg Cap, Delayed Release RxNorm: 032484 1 Capsule( s) PO QD 03/28/2010 06/06/2010 Inactive Endocet 10 mg-325 mg Tab RxNorm: 5790952 1 Tablet(s) PO QID prn ari n 03/27/2010 05/20/2018 Inactive Valium 10 mg Tab RxNorm: 353534 1 Tablet(s) PO QHS 02/20/2010 011 Inactive Diflucan 100 mg Tab RxNorm: 538910 1 Tablet(s) PO BID 01/23/201003/2009 Inactive Diflucan 100 mg Tab RxNorm: 469757 1 Tablet(s) PO BID 01/05/201001/02 Inactive Aricept 10 mg Tab RxNorm: 206852 1 Tablet(s) PO QD 12/01/2009 011 Inactive OxyContin 20 mg 12 hr Tab RxNorm: 9189103 1 Tablet(s) PO BID 200904/05/2010 Inactive oxycodone-acetaminophen 10 mg-325 mg Tab RxNorm: 0464170 1 Table t(s) PO Q4H 11/22/2009 11/26/2009 Inactive Phenergan 25 mg Tab RxNorm: 517813 1 Tablet(s) PO PRN MIGRAINE 11/0303/07/2011 Inactive Demerol 100 mg Tab RxNorm: 141450 1 Tablet(s) PO PRN MIGRAINE 11/2203/07/2011 Inactive Oxycodone-Acetaminophen 10 mg-325 mg Tab RxNorm: 5206371 1 Table t(s) PO Q4H 10/11/2009 10/15/2009 Inactive Percocet 10 mg-325 mg Tab RxNorm: 3348788 1 Tablet(s) PO Q4H 200910/24/2009 Inactive propranolol 60 mg Tab RxNorm: 528199 1 Tablet(s) PO BID 08/29/2009 Inactive Valium 10 mg Tab RxNorm: 048044 1 Tablet(s) PO QHS 08/16/2009 010 Inactive Keflex 500 mg Cap RxNorm: 289111 1 Capsule(s) PO BID 07/25/200907/31 Inactive Hydroxyzine 25 mg Tab RxNorm: 167084 1 Tablet(s) PO TID 07/25/2009 Inactive Prednisone 20 mg Tab RxNorm: 254492 1 Tablet(s) PO BID 07/25/2009 Inactive Demerol 100 mg Tab RxNorm: 662725 1 Tablet(s) PO PRN MIGRAINE 07/25 No Stop Date Active Ropinirole 1 mg Tab RxNorm: 965963 1 Tablet(s) PO HS 07/20/200902/14 Inactive Valium 10 mg Tab RxNorm: 162747 1 Tablet(s) PO QHS 07/18/2009 010 Inactive Endocet 10 mg-325 mg Tab RxNorm: 0992216 1 Tablet(s) PO TID 010 07/07/2009 Inactive Demerol 100 mg Tab RxNorm: 815692 1 Tablet(s) PO PRN MIGRAINE 06/08 No Stop Date Active Ropinirole 1 mg Tab RxNorm: 755894 1 Tablet(s) PO HS 05/16/200907/14 Inactive ipratropium-albuterol 0.5 mg-3 mg(2.5 mg base)/3 mL ne bulization soln RxNorm: 8094630 1 Unit Dose INH Q4H as needed No Start Date Active MagOx 400 mg (241.3 mg magnesium) tablet RxNorm: 926410 1 Table t(s) PO BID No Start Date Active Vitamin B12 1000mcg Tablet RxNorm: 1 Tablet(s) PO QD No Start Date Active Vitamin D3 5,000 unit tablet RxNorm: 112311 1 Tablet(s) PO QD No Star t Date Active Tylenol Arthritis Pain 650 mg tablet,extended release RxNorm : 5706124 1 Tablet(s) PO Q4H No Start Date Active Lotrimin AF 2 % topical powder RxNorm: 330811 1 Application TOP BID No Start Date Active enalapril maleate 5 mg Tab RxNorm: 846015 1 Tablet(s) PO QD No Star t Date 07/20/2012 Inactive Demerol 100 mg Tab RxNorm: 050554 Tablet(s) PO PRN MIGRAINE No Star t Date 06/02/2009 Inactive metformin 500 mg tablet RxNorm: 230809 1 Tablet(s) PO QD No Start D ate 04/05/2013 Inactive Breo Ellipta 100 mcg-25 mcg/dose powder for inhalation RxNor m: 0011536 1 Puff(s) INH BID No Start Date 01/04/2016 Inactive Mag-Oxide 400 mg Tab RxNorm: 000095 1 Tablet(s) PO QD No Start Date 0 07/21/2012 Inactive Cipro 500 mg Tab RxNorm: 103517 1 Tablet(s) PO QD No Start Date 04/05 Inactive Ativan 0.5 mg tablet RxNorm: 109228 1 Tablet(s) PO TID as needed No Start Date 05/06/2019 Inactive melatonin 3 mg tablet RxNorm: 820974 2 Tablet(s) PO QHS No Start Da te 08/19/2018 Inactive buspirone 10 mg Tab RxNorm: 228757 1 Tablet(s) PO QD No Start Date Inactive sucralfate 100 mg/mL Oral Susp RxNorm: 814623 2 Teaspoon(s) PO QID No Start Date 07/21/2012 Inactive hydrocodone 5 mg-acetaminophen 325 mg tablet RxNorm: 378612 1 Tablet(s) PO Q4H as needed No Start Date 08/19/2018 Inactive Amaryl 2 mg tablet RxNorm: 860259 1 Tablet(s) PO BID No Start Date Inactive OxyContin 20 mg 12 hr Tab RxNorm: 5774934 1 Tablet(s) PO BID No Sta rt Date 11/27/2009 Inactive propranolol 40 mg tablet RxNorm: 017316 1 Tablet(s) PO QID No Start Date 01/19/2018 Inactive Trazadone 150 mg Tablet RxNorm: 1-2 Tablet(s) PO QHS prn sleep No Start Date 08/09/2010 Inactive propranolol 60 mg Tab RxNorm: 652009 1/2 Tablet(s) PO BID No Start Date 01/21/2011 Inactive insulin NPH and regular human subcutaneous RxNorm: 6620792 subcu taneous No Start Date 11/20/2018 Inactive Ativan 0.5 mg tablet RxNorm: 313163 1 Tablet(s) PO QID No Start Date 06/18/2016 Inactive Vasotec 5 mg Tab RxNorm: 606816 1 Tablet(s) PO BID No Start Date 06/2011 Inactive Toprol XL 50 mg tablet,extended release RxNorm: 539992 1 Tablet (s) PO BID No Start Date 04/05/2013 Inactive Ativan 0.5 mg tablet RxNorm: 475125 1 Tablet(s) PO TID No Start Date 05/25/2016 Inactive Klor-Con M20 20 mEq Tab RxNorm: 4214993 1 Tablet(s) PO QD No Start Date 03/19/2011 Inactive sumatriptan 100 mg tablet RxNorm: 975044 1 Tablet(s) PO at headache onset--repeat in 2hrs if remains No Start Date 07/21/2012 Inactive propranolol 60 mg Tab RxNorm: 915882 1 Tablet(s) PO BID No Start Da te 08/28/2009 Inactive Cholestyramine Light 4 gram Oral Powder RxNorm: 1499639 1 Unit Dose PO QD in water No Start Date 07/21/2012 Inactive nystatin 100,000 unit/g Topical Powder RxNorm: 178657 Applicati on TOP BID No Start Date 07/21/2012 Inactive vitamin F01-iooml acid sublingual RxNorm: sublingual No Start Date 07/05/2013 Inactive cyclobenzaprine 5 mg tablet RxNorm: 925382 1/2-1 Tablet (s) PO TID as needed for muscle spasm No Start Date 07/18/2017 Inactive tramadol 50 mg tablet RxNorm: 908128 2 Tablet(s) PO TID as need ed for pain No Start Date 09/01/2014 Inactive aspirin 81 mg Tab RxNorm: 447361 1 Tablet(s) PO QOD No Start Date 04/2013 Inactive Vitamin B12 1000mcg Tablet RxNorm: 1 Tablet(s) PO QD No Start Date 07/18/2017 Inactive cholestyramine (with sugar) 4 gram oral powder RxNorm: 23223 3 1 Unit(s) PO QD as needed No Start Date 05/20/2018 Inactive ProAir HFA 90 mcg/Actuation Aerosol Inhaler RxNorm: 517122 2 Puff(s) INH Q4H prn shortness of breath No Start Date 07/21/2012 Inactive pravastatin 10 mg Tab RxNorm: 879229 1 Tablet(s) PO QD No Start Date 07/21/2012 Inactive gabapentin 800 mg Tab RxNorm: 780066 1 Tablet(s) PO BID No Start Da te 06/03/2011 Inactive Endocet 10 mg-325 mg Tab RxNorm: 0844942 1 Tablet(s) PO TID No Star t Date 06/02/2009 Inactive Naproxen 500 mg Tab RxNorm: 131606 1 Tablet(s) PO BID No Start Date 0 04/05/2010 Inactive Valium 10 mg Tab RxNorm: 629098 1 Tablet(s) PO BID No Start Date 07/04 Inactive enalapril maleate 5 mg Tab RxNorm: 462463 1 Tablet(s) PO QD No Star t Date 11/15/2010 Inactive doxepin 10 mg capsule RxNorm: 2980855 2 Capsule(s) PO QHS No Start Date 09/17/2018 Inactive MS Contin 15 mg Tab RxNorm: 100835 1 Tablet(s) PO BID No Start Date 0 09/18/2010 Inactive buspirone 5 mg tablet RxNorm: 587757 1 Tablet(s) PO TID No Start Da te 12/01/2013 Inactive [place] 3 Fish Oil Cap RxNorm: 1 Capsule(s) PO QD No Start Date 07/03 Inactive enalapril maleate 5 mg Tab RxNorm: 200083 1/2 Tablet(s) PO QD No St art Date 03/07/2011 Inactive Lyrica 75 mg capsule RxNorm: 053189 1 Capsule(s) PO QHS No Start Da te 02/08/2014 Inactive Lopressor 100 mg tablet RxNorm: 934018 1 Tablet(s) PO BID No Start Date 06/08/2018 Inactive Lantus Solostar U-100 Insulin 100 unit/mL (3 mL) subcu taneous pen RxNorm: 486573 45 Unit(s) SQ QAM No Start Date 05/20/2018 Inactive aspirin 81 mg tablet RxNorm: 828249 1 Tablet(s) PO QD No Start Date 0 09/14/2015 Inactive diltiazem CD 240 mg capsule,extended release 24 hr RxNorm: 8 96766 1 Capsule(s) PO QD No Start Date 05/25/2019 Inactive insulin NPH isophane U-100 human subcutaneous RxNorm: 629715 beckwith bcutaneous No Start Date 04/20/2019 Inactive sumatriptan 100 mg tablet RxNorm: 650093 1 Tablet(s) PO at headache onset. May repeat 1 in two hours if headache remains. Max of 2 per 24 hours No Start Date 04/01/2018 Inactive gabapentin 300 mg capsule RxNorm: 280831 1 Capsule(s) PO QHS No Sta rt Date 02/04/2018 Inactive Topamax 25 mg Tab RxNorm: 505474 Oral No Start Date 03/07/2011 In active Senokot-S 8.6 mg-50 mg Tab RxNorm: 8680013 1 Tablet(s) PO QD No Sta rt Date 03/07/2011 Inactive metformin ER 500 mg 24 hr tablet,extended release RxNorm: 18 99557 1 Tablet(s) PO QD No Start Date 05/20/2018 Inactive Symbicort 80 mcg-4.5 mcg/actuation HFA Aerosol Inhaler RxNor m: 4350257 2 Puff(s) INH BID No Start Date 04/05/2013 Inactive metoprolol tartrate 25 mg tablet RxNorm: 309283 1 Tablet(s) PO BID No Start Date 05/20/2019 Inactive propranolol 60 mg Tab RxNorm: 243082 1/2 Tablet(s) PO BID No Start Date 07/21/2012 Inactive metformin ER 500 mg 24 hr tablet,extended release RxNorm: 18 19910 2 Tablet(s) PO QD No Start Date 12/16/2017 Inactive Insulin Syringe 1 mL 29 gauge x 1/2" RxNorm: 2 s yringes daily with insulin Dx: E11.65 No Start Date 10/07/2018 Inactive Amitriptyline 75 mg Tab RxNorm: 154482 1 Tablet(s) PO QHS No Start Date 10/23/2009 Inactive donepezil 10 mg Tab RxNorm: 046321 1 Tablet(s) PO QD No Start Date Inactive Lantus Solostar U-100 Insulin 100 unit/mL (3 mL) subcu taneous pen RxNorm: 055787 36 Unit(s) SQ QAM No Start Date 12/24/2017 Inactive Miacalcin 200 unit/Actuation Nasal [place] Aerosol RxNorm: 261 204 1 [place] NASAL QD Alternate nostrils each day No Start Date 04/05/2010 Inactive Amitriptyline 150 mg Tab RxNorm: 445526 1 Tablet(s) PO QHS No Start Date 01/04/2010 Inactive Bystolic 5 mg tablet RxNorm: 533168 1 Tablet(s) PO QD No Start Date 0 08/13/2012 Inactive Aricept 10 mg Tab RxNorm: 122349 1 Tablet(s) PO QD No Start Date 11/03 Inactive Lantus Solostar U-100 Insulin 100 unit/mL (3 mL) subcu taneous pen RxNorm: 576823 50 Unit(s) SQ QAM No Start Date 08/27/2018 Inactive albuterol sulfate 2.5 mg/3 mL (0.083 %) Neb Solution RxNorm: 612169 1 Unit Dose INH QID as needed No Start Date 08/23/2015 Inactive Symbicort 160 mcg-4.5 mcg/actuation HFA Aerosol Inhaler RxNo rm: 1720238 2 Puff(s) INH BID No Start Date 12/03/2011 Inactive Savella 50 mg Tab RxNorm: 639571 1 Tablet(s) PO BID No Start Date 04/2010 Inactive amitriptyline 100 mg Tab RxNorm: 770143 1 1/2 Tablet(s) PO QHS No S tart Date 06/19/2011 Inactive nystatin 100,000 unit/g Topical Cream RxNorm: 163782 Ap plication TOP BID to rash for 2-4 weeks No Start Date 01/14/2011 Inactive Trelegy Ellipta 100 mcg-62.5 mcg-25 mcg powder for inhalatio n RxNorm: 6708691 1 Puff(s) INH QD No Start Date 12/16/2017 Inactive Lyrica 150 mg capsule RxNorm: 902378 1 Capsule(s) PO QHS No Start D ate 12/04/2015 Inactive sennosides 8.6 mg tablet RxNorm: 603368 1 Tablet(s) PO BID No Start Date 09/07/2018 Inactive metformin ER 500 mg tablet,extended release 24 hr RxNorm: 86 0975 1 Tablet(s) PO QD No Start Date 10/22/2017 Inactive Fish Oil 1,000 mg Cap RxNorm: 1 Capsule(s) PO QD No Start Date 06/2011 Inactive Zyrtec 10 mg Tab RxNorm: 4856871 1 Tablet(s) PO QD No Start Date 07/03 Inactive albuterol sulfate HFA 90 mcg/actuation aerosol inhaler RxNor m: 4780987 2 Puff(s) INH Q4H as needed for cough No Start Date 09/30/2013 Inactive trazodone 150 mg tablet RxNorm: 162243 1 Tablet(s) PO QHS No Start Date 07/21/2012 Inactive Spiriva with HandiHaler 18 mcg & inhalation capsules RxNorm: 961482 1 Capsule(s) INH QD No Start Date 04/05/2013 Inactive Coreg 3.125 mg Tab RxNorm: 229699 1 Tablet(s) PO BID No Start Date Inactive Phenergan 25 mg Tab RxNorm: 160769 Tablet(s) PO PRN MIGRAINE No Sta rt Date 11/21/2009 Inactive Vitamin D 50,000 unit Cap RxNorm: 5274259 1 Capsule(s) PO QW No Sta rt Date 03/07/2011 Inactive Januvia 100 mg tablet RxNorm: 822220 1 Tablet(s) PO QD No Start Date 10/25/2015 Inactive Eliquis 5 mg tablet RxNorm: 9487253 1 Tablet(s) PO BID No Start Date 08/19/2018 Inactive Advair Diskus 500 mcg-50 mcg/Dose for Inhalation RxNorm: 684494 1 INH BID No Start Date 07/21/2012 Inactive Vitamin D3 5,000 unit tablet RxNorm: 130105 1 Tablet(s) PO QD No St art Date 07/18/2017 Inactive Amaryl 2 mg tablet RxNorm: 458784 1 Tablet(s) PO QD No Start Date 06/2015 Inactive Actos 30 mg tablet RxNorm: 048624 1 Tablet(s) PO QD No Start Date Inactive promethazine 25 mg tablet RxNorm: 985142 1 Tablet(s) PO Q4H prn N/V No Start Date 07/21/2012 Inactive ProAir HFA 90 mcg/actuation Aerosol Inhaler RxNorm: 580615 2 Puff(s) INH Q4H prn dyspnea No Start Date 07/21/2012 Inactive Dexilant 60 mg Capsule RxNorm: 981321 1 Capsule(s) PO QD No Start D ate 01/27/2012 Inactive Lantus Solostar U-100 Insulin 100 unit/mL (3 mL) subcu taneous pen RxNorm: 912268 38 Unit(s) SQ QAM No Start Date 05/20/2018 Inactive Valium 10 mg Tab RxNorm: 699135 1 Tablet(s) PO QHS AND PRN No Start Date 10/24/2009 Inactive ZOFRAN ODT 8 mg disintegrating tablet RxNorm: 168668 1 Tablet(s ) PO Q6H No Start [...] Date S ervice Location MICROALBUMIN URINE RANDOM 31706 MICRL MG/L 14.9 MG/L Unknown MICROALBUMIN URINE RANDOM 46952 XM.ALB/CRE 6.1 MG/GCR Unknown MICROALBUMIN URINE RANDOM 81564 CREAT MG/D 243 MG/DL Unknown MICROALBUMIN URINE RANDOM 16996 CRE/100 2.43 G/L 03/05 Unknown PROTEIN/CREAT URINE WITH RATIO 48877|34854 PROT R U 14 MG/D L 04/01/2014 Unknown PROTEIN/CREAT URINE WITH RATIO 66880|27264 CREAT R U 254 MG/ DL 04/01/2014 Unknown PROTEIN/CREAT URINE WITH RATIO 15023|75259 XRATIO P/C 55 MG/ G 04/01/2014 Unknown URINALYSIS 51232 PROTEIN UR NEG 04/28/2010 Unknown URINALYSIS 10143 HEMGLBN UR NEG 04/28/2010 Unknown URINALYSIS 49775 GLUCOSE UR NEG 04/28/2010 Unknown URINALYSIS 03589 KETONES UR NEG 04/28/2010 Unknown URINALYSIS 51569 PH U 5.5 04/28/2010 Unknown URINALYSIS 20020 SP GR U 1.025 04/28/2010 Unknown URINALYSIS 52474 BILRUBN UR NEG 04/28/2010 Unknown URINALYSIS 37477 LEUKO UR 2+ 04/28/2010 Unknown URINALYSIS 00361 NITRITE UR NEG 04/28/2010 Unknown MICR CUL? [id number] WBC/HPF 6-10 04/28/2010 Unknown MICR CUL? [id number] RBC/HPF 0-5 04/28/2010 Unknown MICR CUL? [id number] HYAL CAST 16-25 04/28/2010 Unknown MICR CUL? [id number] SP TO YOLIE? NO 04/28/2010 Unknown MICR CUL? [id number] APPEAR UR NORMAL 04/28/2010 Unknown MICR CUL? [id number] SQ EPI/LPF FEW 04/28/2010 Unknown Procedures Procedure Codes Date URINALYSIS NONAUTO W/O SCOPE CPT-4: 05716 04/16/2019 URINE CULTURE/ COLONY COUNT CPT-4: 57239 04/16/2019 CEFTRIAXONE SODIUM INJECTION CPT-4: J0696 04/16/2019 THER/PROPH/DIAG INJ SC/IM CPT-4: 65175 04/16/2019 DRAIN/INJECT JOINT/BURSA CPT-4: 01477 01/22/2019 TRIAMCINOLONE ACET INJ NOS CPT-4: J3301 01/22/2019 DEXAMETHASONE SODIUM PHOS CPT-4: J1100 01/22/2019 URINE CULTURE/ COLONY COUNT CPT-4: 14506 01/07/2019 URINALYSIS NONAUTO W/O SCOPE CPT-4: 45134 01/07/2019 CEFTRIAXONE SODIUM INJECTION CPT-4: J0696 01/07/2019 THER/PROPH/DIAG INJ SC/IM CPT-4: 04929 01/07/2019 FLU VACC PRSV FREE INC ANTIG 65 AND OLDER CPT-4: 22763 12/24/2018 FLU VACC PRSV FREE INC ANTIG 65 AND OLDER CPT-4: 22433 12/24/2018 ADMIN INFLUENZA VIRUS VAC CPT-4: G0008 12/24/2018 THER/PROPH/DIAG INJ SC/IM CPT-4: 15071 11/04/2018 KETOROLAC TROMETHAMINE INJ CPT-4: J1885 11/04/2018 PROMETHAZINE HCL INJECTION CPT-4: J2550 11/04/2018 PPPS, subseq visit CPT-4: G0439 09/18/2018 THER/PROPH/DIAG INJ SC/IM CPT-4: 58483 04/01/2018 KETOROLAC TROMETHAMINE INJ CPT-4: J1885 04/01/2018 PROMETHAZINE HCL INJECTION CPT-4: J2550 04/01/2018 URINE CULTURE/ COLONY COUNT CPT-4: 05928 03/17/2018 URINALYSIS NONAUTO W/O SCOPE CPT-4: 74471 03/17/2018 FLU VACC PRSV FREE INC ANTIG 65 AND OLDER CPT-4: 11644 12/17/2017 PNEUMOCOCCAL VACC 23 RANDALL IM CPT-4: 46398 12/17/2017 ADMIN INFLUENZA VIRUS VAC CPT-4: G0008 12/17/2017 ADMIN PNEUMOCOCCAL VACCINE CPT-4: G0009 12/17/2017 PPPS, subseq visit CPT-4: G0439 09/17/2017 THER/PROPH/DIAG INJ SC/IM CPT-4: 78794 08/26/2017 KETOROLAC TROMETHAMINE INJ CPT-4: J1885 08/26/2017 PROMETHAZINE HCL INJECTION CPT-4: J2550 08/26/2017 URINALYSIS NONAUTO W/O SCOPE CPT-4: 00321 07/19/2017 URINE CULTURE/ COLONY COUNT CPT-4: 50914 07/19/2017 CEFTRIAXONE SODIUM INJECTION CPT-4: J0696 07/19/2017 THER/PROPH/DIAG INJ SC/IM CPT-4: 80848 07/19/2017 THER/PROPH/DIAG INJ SC/IM CPT-4: 66654 07/19/2017 TRIAMCINOLONE ACET INJ NOS CPT-4: J3301 07/19/2017 PRESCRIP TRANSMIT VIA ERX SY CPT-4: G8553 05/07/2017 PRESCRIP TRANSMIT VIA ERX SY CPT-4: G8553 02/22/2017 PRESCRIP TRANSMIT VIA ERX SY CPT-4: G8553 01/23/2017 FLU VACC PRSV FREE INC ANTIG 65 AND OLDER CPT-4: 06535 12/20/2016 PNEUMOCOCCAL VACC 13 RANDALL IM CPT-4: 83012 12/20/2016 ADMIN INFLUENZA VIRUS VAC CPT-4: G0008 12/20/2016 ADMIN PNEUMOCOCCAL VACCINE CPT-4: G0009 12/20/2016 URINALYSIS NONAUTO W/O SCOPE CPT-4: 50396 10/08/2016 URINE CULTURE/ COLONY COUNT CPT-4: 20764 10/08/2016 PRESCRIP TRANSMIT VIA ERX SY CPT-4: G8553 10/08/2016 PRESCRIP TRANSMIT VIA ERX SY CPT-4: G8553 09/19/2016 PRESCRIP TRANSMIT VIA ERX SY CPT-4: G8553 08/20/2016 PRESCRIP TRANSMIT VIA ERX SY CPT-4: G8553 02/29/2016 KETOROLAC TROMETHAMINE INJ CPT-4: J1885 02/02/2016 THER/PROPH/DIAG INJ SC/IM CPT-4: 74127 02/02/2016 PROMETHAZINE HCL INJECTION CPT-4: J2550 02/02/2016 PRESCRIP TRANSMIT VIA ERX SY CPT-4: G8553 02/02/2016 FLU VACC PRSV FREE INC ANTIG 65 AND OLDER CPT-4: 71204 01/05/2016 PPPS, subseq visit CPT-4: G0439 01/05/2016 ADMIN INFLUENZA VIRUS VAC CPT-4: G0008 01/05/2016 URINE CULTURE/ COLONY COUNT CPT-4: 69943 12/05/2015 URINALYSIS NONAUTO W/O SCOPE CPT-4: 74404 12/05/2015 PRESCRIP TRANSMIT VIA ERX SY CPT-4: G8553 12/05/2015 PRESCRIP TRANSMIT VIA ERX SY CPT-4: G8553 10/26/2015 URINALYSIS NONAUTO W/O SCOPE CPT-4: 44255 10/05/2015 URINE CULTURE/ COLONY COUNT CPT-4: 34094 10/05/2015 PRESCRIP TRANSMIT VIA ERX SY CPT-4: G8553 10/05/2015 MD SERVICE REQUIRED FOR PMD CPT-4: G0372 09/15/2015 PRESCRIP TRANSMIT VIA ERX SY CPT-4: G8553 09/15/2015 SPECIAL REPORTS OR FORMS CPT-4: 85311 08/25/2015 PRESCRIP TRANSMIT VIA ERX SY CPT-4: G8553 07/05/2015 URINALYSIS NONAUTO W/O SCOPE CPT-4: 38667 03/30/2015 ASSAY, GLUCOSE, BLOOD QUANT CPT-4: 38420 03/30/2015 URINE CULTURE/ COLONY COUNT CPT-4: 84115 03/30/2015 PRESCRIP TRANSMIT VIA ERX SY CPT-4: G8553 03/30/2015 PRESCRIP TRANSMIT VIA ERX SY CPT-4: G8553 02/03/2015 FLU VACC PRSV FREE INC ANTIG 65 AND OLDER CPT-4: 36929 12/29/2014 ADMIN INFLUENZA VIRUS VAC CPT-4: G0008 12/29/2014 PRESCRIP TRANSMIT VIA ERX SY CPT-4: G8553 12/29/2014 PRESCRIP TRANSMIT VIA ERX SY CPT-4: G8553 09/02/2014 PROTEIN/CREAT URINE WITH RATIO CPT-4: 22792|48848 5 MICROALBUMIN QUANTITATIVE CPT-4: 99541 04/01/2014 PRESCRIP TRANSMIT VIA ERX SY CPT-4: G8553 03/16/2014 PRESCRIP TRANSMIT VIA ERX SY CPT-4: G8553 03/09/2014 THER/PROPH/DIAG INJ SC/IM CPT-4: 41268 03/01/2014 TRIAMCINOLONE ACET INJ NOS CPT-4: J3301 03/01/2014 PRESCRIP TRANSMIT VIA ERX SY CPT-4: G8553 02/09/2014 URINE CULTURE/ COLONY COUNT CPT-4: 93132 10/30/2013 URINALYSIS NONAUTO W/O SCOPE CPT-4: 62218 10/21/2013 URINE CULTURE/ COLONY COUNT CPT-4: 00639 10/21/2013 DESTRUCT PREMALG LESION (Cryosurgery) CPT-4: 46740 PRESCRIP TRANSMIT VIA ERX SY CPT-4: G8553 10/05/2013 URINALYSIS NONAUTO W/O SCOPE CPT-4: 61742 08/04/2013 URINE CULTURE/ COLONY COUNT CPT-4: 86033 08/04/2013 PRESCRIP TRANSMIT VIA ERX SY CPT-4: G8553 08/04/2013 THER/PROPH/DIAG INJ SC/IM CPT-4: 00482 07/13/2013 TRIAMCINOLONE ACET INJ NOS CPT-4: J3301 07/13/2013 PRESCRIP TRANSMIT VIA ERX SY CPT-4: G8553 05/27/2013 URINALYSIS NONAUTO W/O SCOPE CPT-4: 52090 05/25/2013 URINE CULTURE/ COLONY COUNT CPT-4: 81884 05/25/2013 THER/PROPH/DIAG INJ SC/IM CPT-4: 34044 05/04/2013 VITAMIN B12 INJECTION CPT-4: J3420 05/04/2013 THER/PROPH/DIAG INJ SC/IM CPT-4: 64423 04/17/2013 VITAMIN B12 INJECTION CPT-4: J3420 04/17/2013 THER/PROPH/DIAG INJ SC/IM CPT-4: 24397 04/17/2013 METHYLPREDNISOLONE 40 MG INJ CPT-4: J1030 04/17/2013 TRIAMCINOLONE ACET INJ NOS CPT-4: J3301 04/17/2013 URINALYSIS NONAUTO W/O SCOPE CPT-4: 89019 04/06/2013 URINE CULTURE/ COLONY COUNT CPT-4: 17939 04/06/2013 PRESCRIP TRANSMIT VIA ERX SY CPT-4: G8553 04/06/2013 KETOROLAC TROMETHAMINE INJ CPT-4: J1885 06/25/2012 PROMETHAZINE HCL INJECTION CPT-4: J2550 06/25/2012 THER/PROPH/DIAG INJ SC/IM CPT-4: 53292 06/25/2012 THER/PROPH/DIAG INJ SC/IM CPT-4: 36513 06/24/2012 METHYLPREDNISOLONE 40 MG INJ CPT-4: J1030 06/24/2012 TRIAMCINOLONE ACET INJ NOS CPT-4: J3301 06/24/2012 URINE CULTURE/ COLONY COUNT CPT-4: 46231 06/24/2012 THER/PROPH/DIAG INJ SC/IM CPT-4: 07688 05/20/2012 KETOROLAC TROMETHAMINE INJ CPT-4: J1885 05/20/2012 THER/PROPH/DIAG INJ SC/IM CPT-4: 42748 05/20/2012 PROMETHAZINE HCL INJECTION CPT-4: J2550 05/20/2012 DRAIN/INJECT JOINT/BURSA CPT-4: 97439 02/13/2012 METHYLPREDNISOLONE 40 MG INJ CPT-4: J1030 02/13/2012 TRIAMCINOLONE ACET INJ NOS CPT-4: J3301 02/13/2012 THER/PROPH/DIAG INJ SC/IM CPT-4: 43438 11/14/2011 METHYLPREDNISOLONE 40 MG INJ CPT-4: J1030 11/14/2011 TRIAMCINOLONE ACET INJ NOS CPT-4: J3301 11/14/2011 THER/PROPH/DIAG INJ SC/IM CPT-4: 99731 09/12/2011 KETOROLAC TROMETHAMINE INJ CPT-4: J1885 09/12/2011 THER/PROPH/DIAG INJ SC/IM CPT-4: 55422 08/09/2011 METHYLPREDNISOLONE 40 MG INJ CPT-4: J1030 08/09/2011 TRIAMCINOLONE ACET INJ NOS CPT-4: J3301 08/09/2011 URINE CULTURE/ COLONY COUNT CPT-4: 89408 07/03/2011 URINE CULTURE/ COLONY COUNT CPT-4: 06605 06/04/2011 THER/PROPH/DIAG INJ SC/IM CPT-4: 21298 05/03/2011 METHYLPREDNISOLONE 40 MG INJ CPT-4: J1030 05/03/2011 TRIAMCINOLONE ACET INJ NOS CPT-4: J3301 05/03/2011 URINALYSIS NONAUTO W/O SCOPE CPT-4: 75779 01/24/2011 URINE CULTURE/ COLONY COUNT CPT-4: 97856 01/24/2011 FLUZONE, 5ML (Medicare) CPT-4: Q2038 01/02/2011 ADMIN INFLUENZA VIRUS VAC CPT-4: G0008 01/02/2011 ASSAY, GLUCOSE, BLOOD QUANT CPT-4: 16944 12/07/2010 URINE CULTURE/ COLONY COUNT CPT-4: 47153 11/02/2010 THER/PROPH/DIAG INJ SC/IM CPT-4: 58052 10/18/2010 METHYLPREDNISOLONE 40 MG INJ CPT-4: J1030 10/18/2010 TRIAMCINOLONE ACET INJ NOS CPT-4: J3301 10/18/2010 TRIAMCINOLONE ACET INJ NOS CPT-4: J3301 05/11/2010 METHYLPREDNISOLONE 40 MG INJ CPT-4: J1030 05/11/2010 THER/PROPH/DIAG INJ SC/IM CPT-4: 52182 05/11/2010 TRIAMCINOLONE ACET INJ NOS CPT-4: J3301 02/09/2010 METHYLPREDNISOLONE 40 MG INJ CPT-4: J1030 02/09/2010 THER/PROPH/DIAG INJ SC/IM CPT-4: 84082 02/09/2010 SERVICE REQUIRED FOR PMD CPT-4: G0372 02/09/2010 FLU VACCINE 3 YRS & > IM UP 64 CPT-4: 95863 0 PNEUMOCOCCAL VACC 23 RANDALL IM CPT-4: 38261 12/07/2009 ADMIN INFLUENZA VIRUS VAC CPT-4: G0008 12/07/2009 ADMIN PNEUMOCOCCAL VACCINE CPT-4: G0009 12/07/2009 TRIAMCINOLONE ACET INJ NOS CPT-4: J3301 05/26/2009 THER/PROPH/DIAG INJ SC/IM CPT-4: 00015 05/26/2009 METHYLPREDNISOLONE 80 MG INJ CPT-4: J1040 [...] 1: 114/72 Code: 8480-6 BMI: 37.8 Code: 24586-3 Heart Rate 1: 72 bpm Height: 5'3" [...] 1: 106/68 Code: 8480-6 BMI: 35.7 Code: 42383-9 Heart Rate 1: 72 bpm Height: 5'4" Respiratory Rate: 20 bpm SpO2: 98% Tempera ture: 36.7 (C) / 98.0 (F) Weight: 208 lbs 04/16/2018 Blood Pressure 1: 132/82 Code: 8480-6 BMI: 37.9 Code: 91076-0 Heart Rate 1: 72 bpm Height: 5'4" Respiratory Rate: 20 bpm SpO2: 96% Tempera ture: 37.1 (C) / 98.8 (F) Weight: 221 lbs 04/01/2018 Blood Pressure 1: 150/90 Code: 8480-6 Heart Rate 1: 72 bpm Respiratory Rate: 22 bpm SpO2: 95% Temperature: 36.4 (C) / 97.6 (F) We ight: 216 lbs 03/06/2018 Blood Pressure 1: 126/78 Code: 8480-6 BMI: 37.4 Code: 23304-8 Heart Rate 1: 68 bpm Height: 5'4" [...] ight: 222 lbs 12/25/2017 BMI: 37.8 Code: 68014-9 Heart Rate 1: 76 bpm Height: 5 '4" Respiratory Rate: 20 bpm SpO2: 96% Temperature: 37.3 (C) / 99.2 (F) Weight: 220 lbs 12/17/2017 Blood Pressure 1: 132/78 Code: 8480-6 BMI: 37.2 Code: 76923-5 Heart Rate 1: 88 bpm Height: 5'4" Respiratory Rate: 20 bpm SpO2: 96% Tempera ture: 37.3 (C) / 99.2 (F) Weight: 217 lbs 10/30/2017 Blood Pressure 1: 114/68 Code: 8480-6 BMI: 36.4 Code: 39965-2 Heart Rate 1: 72 bpm Height: 5'4" Respiratory Rate: 22 bpm SpO2: 96% Tempera ture: 36.8 (C) / 98.2 (F) Weight: 212 lbs 10/23/2017 Blood Pressure 1: 124/78 Code: 8480-6 Heart Rate 1: 72 bpm Respiratory Rate: 24 bpm SpO2: 94% Temperature: 36.6 (C) / 97.9 (F) We ight: 212 lbs 09/17/2017 Blood Pressure 1: 128/82 Code: 8480-6 BMI: 37.4 Code: 69057-4 Heart Rate 1: 72 bpm Height: 5'4" Respiratory Rate: 20 bpm SpO2: 96% Tempera ture: 37.0 (C) / 98.6 (F) Weight: 218 lbs 07/19/2017 Blood Pressure 1: 136/84 Code: 8480-6 BMI: 36.6 Code: 05453-2 Heart Rate 1: 88 bpm Height: 5'4" Respiratory Rate: 20 bpm SpO2: 97% Tempera ture: 36.7 (C) / 98.0 (F) Weight: 213 lbs 05/29/2017 Blood Pressure 1: 136/82 Code: 8480-6 BMI: 36.7 Code: 85799-5 Heart Rate 1: 72 bpm Height: 5'4" Respiratory Rate: 20 bpm SpO2: 97% Tempera ture: 36.9 (C) / 98.4 (F) Weight: 214 lbs 05/07/2017 Blood Pressure 1: 122/80 Code: 8480-6 BMI: 37.1 Code: 91831-6 Heart Rate 1: 80 bpm Height: 5'4" Respiratory Rate: 24 bpm SpO2: 96% Tempera ture: 36.1 (C) / 97.0 (F) Weight: 216 lbs 03/18/2017 BMI: 36.7 Code: 45493-0 Heart Rate 1: 80 bpm Height: 5 '4" Respiratory Rate: 22 bpm SpO2: 95% Temperature: 36.9 (C) / 98.4 (F) Weight: 214 lbs 02/27/2017 Blood Pressure 1: 146/94 Code: 8480-6 BMI: 36.6 Code: 45262-4 Heart Rate 1: 76 bpm Height: 5'4" Respiratory Rate: 22 bpm SpO2: 97% Tempera ture: 36.6 (C) / 97.9 (F) Weight: 213 lbs 02/22/2017 Blood Pressure 1: 126/90 Code: 8480-6 BMI: 36.4 Code: 07901-4 Heart Rate 1: 84 bpm Height: 5'4" Respiratory Rate: 22 bpm SpO2: 95% Tempera ture: 36.9 (C) / 98.4 (F) Weight: 212 lbs 01/23/2017 Blood Pressure 1: 146/82 Code: 8480-6 BMI: 37.6 Code: 20201-4 Heart Rate 1: 96 bpm Height: 5'4" Respiratory Rate: 20 bpm SpO2: 96% Tempera ture: 36.9 (C) / 98.4 (F) Weight: 219 lbs 12/20/2016 Blood Pressure 1: 126/70 Code: 8480-6 BMI: 37.2 Code: 67954-6 Heart Rate 1: 76 bpm Height: 5'4" Respiratory Rate: 22 bpm SpO2: 95% Tempera ture: 36.6 (C) / 97.8 (F) Weight: 217 lbs 10/08/2016 Blood Pressure 1: 128/82 Code: 8480-6 BMI: 36.9 Code: 17206-2 Heart Rate 1: 76 bpm Height: 5'4" Respiratory Rate: 20 bpm SpO2: 95% Tempera ture: 37.0 (C) / 98.6 (F) Weight: 215 lbs 09/19/2016 Blood Pressure 1: 144/78 Code: 8480-6 BMI: 37.8 Code: 28138-4 Heart Rate 1: 76 bpm Height: 5'4" Respiratory Rate: 22 bpm SpO2: 95% Tempera ture: 37.0 (C) / 98.6 (F) Weight: 220 lbs 08/20/2016 Blood Pressure 1: 140/86 Code: 8480-6 BMI: 37.4 Code: 68387-2 Heart Rate 1: 80 bpm Height: 5'4" Respiratory Rate: 20 bpm SpO2: 95% Tempera ture: 36.9 (C) / 98.4 (F) Weight: 218 lbs 06/19/2016 Blood Pressure 1: 124/78 Code: 8480-6 BMI: 37.8 Code: 41884-2 Heart Rate 1: 74 bpm Height: 5'4" Respiratory Rate: 24 bpm SpO2: 96% Tempera ture: 36.9 (C) / 98.4 (F) Weight: 220 lbs 06/04/2016 Blood Pressure 1: 12478 Code: 8480-6 BMI: 38.8 Code: 08116-7 Heart Rate 1: 72 bpm Height: 5'4" Respiratory Rate: 24 bpm SpO2: 95% Tempera ture: 36.8 (C) / 98.2 (F) Weight: 226 lbs 05/02/2016 Blood Pressure 1: 136/90 Code: 8480-6 BMI: 37.6 Code: 11509-2 Heart Rate 1: 72 bpm Height: 5'4" Respiratory Rate: 24 bpm SpO2: 96% Tempera ture: 36.9 (C) / 98.4 (F) Weight: 219 lbs 04/03/2016 Blood Pressure 1: 126/78 Code: 8480-6 BMI: 38.1 Code: 42416-1 Heart Rate 1: 72 bpm Height: 5'4" Respiratory Rate: 22 bpm SpO2: 94% Tempera ture: 36.9 (C) / 98.4 (F) Weight: 222 lbs 02/29/2016 Blood Pressure 1: 132/78 Code: 8480-6 Heart Rate 1: 78 bpm Height: Respiratory Rate: 24 bpm SpO2: 95% Temperature: 36.4 (C) / 97.6 (F) We ight: 02/02/2016 Blood Pressure 1: 124/78 Code: 8480-6 BMI: 37.6 Code: 12501-6 Heart Rate 1: 76 bpm Height: 5'4" Respiratory Rate: 20 bpm SpO2: 95% Tempera ture: 36.8 (C) / 98.2 (F) Weight: 219 lbs 01/05/2016 Blood Pressure 1: 126/70 Code: 8480-6 BMI: 37.1 Code: 48506-9 Heart Rate 1: 76 bpm Height: 5'4" Respiratory Rate: 20 bpm Temperature: 36 .6 (C) / 97.8 (F) Weight: 216 lbs 12/05/2015 Blood Pressure 1: 126/72 Code: 8480-6 BMI: 36.9 Code: 39268-8 Heart Rate 1: 92 bpm Height: 5'4" Respiratory Rate: 20 bpm Temperature: 36 .7 (C) / 98.1 (F) Weight: 215 lbs 10/26/2015 Blood Pressure 1: 142/80 Code: 8480-6 BMI: 36.4 Code: 94614-2 Heart Rate 1: 82 bpm Height: 5'4" Respiratory Rate: 24 bpm SpO2: 92% Tempera ture: 35.9 (C) / 96.7 (F) Weight: 212 lbs 10/05/2015 Blood Pressure 1: 136/82 Code: 8480-6 Heart Rate 1: 80 bpm Respiratory Rate: 18 bpm SpO2: 98% Temperature: 35.7 (C) / 96.3 (F) We ight: 214 lbs 09/15/2015 Blood Pressure 1: 116/80 Code: 8480-6 BMI: 34.6 Code: 24406-7 Heart Rate 1: 76 bpm Height: 5'6" Respiratory Rate: 20 bpm Temperature: 36 .6 (C) / 97.9 (F) Weight: 211 lbs 08/24/2015 Blood Pressure 1: 124/80 Code: 8480-6 BMI: 34.1 Code: 70936-1 Heart Rate 1: 68 bpm Height: 5'6" Respiratory Rate: 20 bpm Temperature: 36 .8 (C) / 98.3 (F) Weight: 208 lbs 07/05/2015 Blood Pressure 1: 114/78 Code: 8480-6 BMI: 33.9 Code: 14847-3 Heart Rate 1: 80 bpm Height: 5'6" Respiratory Rate: 20 bpm Temperature: 36 .6 (C) / 97.9 (F) Weight: 207 lbs 06/06/2015 Blood Pressure 1: 122/78 Code: 8480-6 BMI: 34.1 Code: 45405-5 Heart Rate 1: 76 bpm Height: 5'6" Respiratory Rate: 24 bpm SpO2: 96% Tempera ture: 36.4 (C) / 97.6 (F) Weight: 208 lbs 05/23/2015 Blood Pressure 1: 124/78 Code: 8480-6 Heart Rate 1: 76 bpm Respiratory Rate: 24 bpm SpO2: 93% Temperature: 36.8 (C) / 98.2 (F) We ight: 212 lbs 05/05/2015 Blood Pressure 1: 136/80 Code: 8480-6 BMI: 35.4 Code: 92181-8 Heart Rate 1: 76 bpm Height: 5'6" Respiratory Rate: 28 bpm Temperature: 37 .0 (C) / 98.6 (F) Weight: 216 lbs 03/30/2015 Blood Pressure 1: 132/86 Code: 8480-6 BMI: 35.2 Code: 55745-4 Heart Rate 1: 84 bpm Height: 5'6" Respiratory Rate: 24 bpm Temperature: 36 .7 (C) / 98.0 (F) Weight: 215 lbs 02/03/2015 Blood Pressure 1: 122/74 Code: 8480-6 BMI: 35.7 Code: 93245-7 Heart Rate 1: 84 bpm Height: 5'6" Respiratory Rate: 20 bpm Temperature: 36 .9 (C) / 98.5 (F) Weight: 218 lbs 12/29/2014 Blood Pressure 1: 132/80 Code: 8480-6 BMI: 35.1 Code: 79438-4 Heart Rate 1: 80 bpm Height: 5'6" Respiratory Rate: 20 bpm Temperature: 36 .6 (C) / 97.8 (F) Weight: 214 lbs 09/02/2014 Blood Pressure 1: 128/92 Code: 8480-6 BMI: 34.7 Code: 13152-7 Heart Rate 1: 84 bpm Height: 5'6" Respiratory Rate: 26 bpm Temperature: 36 .8 (C) / 98.2 (F) Weight: 212 lbs 08/25/2014 Blood Pressure 1: 124/80 Code: 8480-6 BMI: 34.7 Code: 45510-0 Heart Rate 1: 78 bpm Height: 5'6" Respiratory Rate: 22 bpm SpO2: 97% Tempera ture: 36.6 (C) / 97.8 (F) Weight: 212 lbs 04/01/2014 Blood Pressure 1: 142/84 Code: 8480-6 BMI: 34.4 Code: 72146-6 Heart Rate 1: 74 bpm Height: 5'5" Respiratory Rate: 20 bpm Temperature: 36 .4 (C) / 97.6 (F) Weight: 207 lbs 03/16/2014 Blood Pressure 1: 142/90 Code: 8480-6 BMI: 34.6 Code: 50224-7 Heart Rate 1: 76 bpm Height: 5'5" Respiratory Rate: 24 bpm Temperature: 36 .5 (C) / 97.7 (F) Weight: 208 lbs 03/09/2014 Blood Pressure 1: 116/70 Code: 8480-6 BMI: 35.3 Code: 09129-3 Heart Rate 1: 72 bpm Height: 5'5" [...] 1: 128/86 Code: 8480-6 BMI: 34.3 Code: 78111-8 Heart Rate 1: 84 bpm Height: 5'5" Respiratory Rate: 20 bpm Temperature: 36 .7 (C) / 98.0 (F) Weight: 206 lbs 12/23/2013 Blood Pressure 1: 122/70 Code: 8480-6 BMI: 34.3 Code: 19282-3 Heart Rate 1: 68 bpm Height: 5'5" Respiratory Rate: 20 bpm Temperature: 36 .8 (C) / 98.2 (F) Weight: 206 lbs 10/05/2013 Blood Pressure 1: 118/76 Code: 8480-6 BMI: 34.1 Code: 96426-2 Heart Rate 1: 68 bpm Height: 5'5" Respiratory Rate: 20 bpm SpO2: 98% Tempera ture: 36.6 (C) / 97.9 (F) Weight: 205 lbs 08/04/2013 Blood Pressure 1: 126/82 Code: 8480-6 BMI: 33.3 Code: 64331-2 Heart Rate 1: 76 bpm Height: 5'5" Respiratory Rate: 20 bpm Temperature: 36 .8 (C) / 98.2 (F) Weight: 200 lbs 07/03/2013 Blood Pressure 1: 124/82 Code: 8480-6 BMI: 33.3 Code: 36462-1 Heart Rate 1: 72 bpm Height: 5'5" Respiratory Rate: 22 bpm Temperature: 36 .1 (C) / 97.0 (F) Weight: 200 lbs 05/27/2013 Blood Pressure 1: 12682 Code: 8480-6 Heart Rate 1: 74 bpm Respiratory Rate: 20 bpm Temperature: 36.0 (C) / 96.8 (F) Weight: 199 lbs 04/06/2013 Blood Pressure 1: 118/80 Code: 8480-6 BMI: 35.2 Code: 62640-3 Heart Rate 1: 80 bpm Height: 5'4" Respiratory Rate: 20 bpm Temperature: 37 .4 (C) / 99.3 (F) Weight: 205 lbs 11/10/2012 Blood Pressure 1: 128/82 Code: 8480-6 Heart Rate 1: 84 bpm Respiratory Rate: 20 bpm Temperature: 36.7 (C) / 98.0 (F) Weight: 199 lbs 09/02/2012 Blood Pressure 1: 116/82 Code: 8480-6 BMI: 34.2 Code: 19264-6 Heart Rate 1: 88 bpm Height: 5'4" Respiratory Rate: 22 bpm Temperature: 36 .6 (C) / 97.8 (F) Weight: 199 lbs 08/04/2012 Blood Pressure 1: 128/74 Code: 8480-6 BMI: 34.0 Code: 84350-4 Heart Rate 1: 92 bpm Height: 5'4" Respiratory Rate: 20 bpm Temperature: 36 .4 (C) / 97.5 (F) Weight: 198 lbs 07/21/2012 Blood Pressure 1: 124/86 Code: 8480-6 Heart Rate 1: 116 bpm Respiratory Rate: 24 bpm Temperature: 36.8 (C) / 98.2 (F) 07/02/2012 Blood Pressure 1: 116/88 Code: 8480-6 BMI: 33.6 Code: 10153-9 Heart Rate 1: 76 bpm Height: 5'4" Respiratory Rate: 20 bpm Temperature: 36 .8 (C) / 98.3 (F) Weight: 196 lbs 06/24/2012 Blood Pressure 1: 124/80 Code: 8480-6 BMI: 34.3 Code: 46463-6 Heart Rate 1: 72 bpm Height: 5'4" SpO2: 96% Temperature: 36.3 (C) / 97.3 (F) Weight: 200 lbs 05/20/2012 Blood Pressure 1: 116/88 Code: 8480-6 BMI: 33.8 Code: 80309-6 Heart Rate 1: 80 bpm Height: 5'4" Respiratory Rate: 22 bpm Temperature: 36 .9 (C) / 98.4 (F) Weight: 197 lbs 05/08/2012 Blood Pressure 1: 128/86 Code: 8480-6 BMI: 33.8 Code: 41238-6 Heart Rate 1: 76 bpm Height: 5'4" Respiratory Rate: 26 bpm SpO2: 95% Tempera ture: 36.1 (C) / 97.0 (F) Weight: 197 lbs 04/22/2012 Blood Pressure 1: 106/64 Code: 8480-6 BMI: 33.8 Code: 81930-7 Heart Rate 1: 70 bpm Height: 5'4" Temperature: 36.1 (C) / 97.0 (F) Weight: 197 lbs 02/13/2012 Blood Pressure 1: 126/82 Code: 8480-6 BMI: 34.7 Code: 54315-4 Heart Rate 1: 64 bpm Height: 5'4" Respiratory Rate: 20 bpm Temperature: 36 .6 (C) / 97.8 (F) Weight: 202 lbs 01/28/2012 Blood Pressure 1: 116/80 Code: 8480-6 BMI: 34.7 Code: 66411-0 Heart Rate 1: 76 bpm Height: 5'4" Respiratory Rate: 20 bpm Temperature: 36 .8 (C) / 98.3 (F) Weight: 202 lbs 12/26/2011 Blood Pressure 1: 132/82 Code: 8480-6 BMI: 36.0 Code: 30459-1 Heart Rate 1: 68 bpm Height: 5'4" Respiratory Rate: 22 bpm Temperature: 36 .7 (C) / 98.0 (F) Weight: 210 lbs 11/14/2011 Blood Pressure 1: 124/80 Code: 8480-6 BMI: 36.4 Code: 56466-1 Heart Rate 1: 76 bpm Height: 5'4" Respiratory Rate: 20 bpm Temperature: 36 .8 (C) / 98.2 (F) Weight: 212 lbs 09/12/2011 Blood Pressure 1: 108/74 Code: 8480-6 BMI: 37.1 Code: 29244-4 Heart Rate 1: 72 bpm Height: 5'4" Respiratory Rate: 20 bpm Temperature: 37 .0 (C) / 98.6 (F) Weight: 216 lbs 08/15/2011 Blood Pressure 1: 122/80 Code: 8480-6 BMI: 36.9 Code: 92530-9 Heart Rate 1: 76 bpm Height: 5'4" Respiratory Rate: 20 bpm Temperature: 36 .2 (C) / 97.1 (F) Weight: 215 lbs 08/09/2011 Blood Pressure 1: 112/78 Code: 8480-6 BMI: 36.9 Code: 37903-7 Heart Rate 1: 68 bpm Height: 5'4" Respiratory Rate: 20 bpm Temperature: 36 .7 (C) / 98.0 (F) Weight: 215 lbs 07/03/2011 Blood Pressure 1: 140/94 Code: 8480-6 BMI: 36.2 Code: 60871-0 Heart Rate 1: 68 bpm Height: 5'4" Temperature: 36.0 (C) / 96.8 (F) Weight: 211 lbs 06/04/2011 Blood Pressure 1: 124/70 Code: 8480-6 BMI: 36.7 Code: 77480-0 Heart Rate 1: 68 bpm Height: 5'4" Respiratory Rate: 20 bpm Temperature: 36 .6 (C) / 97.9 (F) Weight: 214 lbs 05/03/2011 Blood Pressure 1: 130/76 Code: 8480-6 BMI: 36.4 Code: 28403-9 Heart Rate 1: 74 bpm Height: 5'5" Temperature: 36.2 (C) / 97.2 (F) Weight: 219 lbs 04/05/2011 Blood Pressure 1: 124/86 Code: 8480-6 BMI: 35.9 Code: 76797-2 Heart Rate 1: 76 bpm Height: 5'6" Respiratory Rate: 22 bpm Temperature: 36 .3 (C) / 97.3 (F) Weight: 219 lbs 03/08/2011 Blood Pressure 1: 112/78 Code: 8480-6 BMI: 35.1 Code: 01164-9 Heart Rate 1: 80 bpm Height: 5'6" Respiratory Rate: 26 bpm Temperature: 36 .9 (C) / 98.4 (F) Weight: 214 lbs 01/24/2011 Blood Pressure 1: 110/82 Code: 8480-6 BMI: 35.6 Code: 68508-9 Heart Rate 1: 80 bpm Height: 5'6" Temperature: 36.1 (C) / 97.0 (F) Weight: 217 lbs 01/02/2011 Blood Pressure 1: 106/72 Code: 8480-6 BMI: 35.6 Code: 49237-1 Heart Rate 1: 76 bpm Height: 5'6" [...] 1: 120/74 Code: 8480-6 BMI: 35.9 Code: 83680-4 Heart Rate 1: 72 bpm Height: 5'5" Temperature: 36.3 (C) / 97.4 (F) Weight: 216 lbs 09/19/2010 Blood Pressure 1: 124/80 Code: 8480-6 BMI: 35.4 Code: 45860-4 Heart Rate 1: 76 bpm Height: 5'5" [...] 1: 122/78 Code: 8480-6 BMI: 37.4 Code: 97604-1 Heart Rate 1: 84 bpm Height: 5'5" [...] 10/30/2017 follow up 10/23/2017 Hospital fwup from [facility] Annual Checkup 09/17/2017 Wellness Physical [...] follow up 10/26/2015 ER visit from at [facility] for COPD Exacerbation follow up 10/05/2015 ER Visit gait abnormality 09/15/2015 Patient requesting kelly pineda paperwork to be filled out disturbances of thinking 08/24/2015 follow up 07/05/2015 4wk fwup follow up 06/06/2015 [facility] cough 05/23/2015 follow up 05/05/2015 dyspnea 03/30/2015 [facility] needs new orde r for O2 abdominal pain 02/03/2015 cyst 12/29/2014 vs abscess follow up 09/02/2014 [facility] fw headache 08/25/2014 facial drooping follow up 04/01/2014 ER follow up 03/16/2014 1wk fwup follow up 03/09/2014 1mo fwup and bronchi tis fwup follow up 03/03/2014 2 day follow up 03/01/2014 ER follow up 02/09/2014 [facility] gastroesophageal reflux 12/23/2013 painful urination 10/30/2013 [...] up 08/04/2012 2wk fwup follow up 07/21/2012 [facility]--[facility] an sore throat 07/02/2012 headache 06/25/2012 [...] up 10/18/[address] Medrano last w [facility], having increased allergy symptoms. Would like steroid [...] month f/u follow up 12/07/2009 [facility], done with PT--finished about 2wks ago [...] swelling[ICD10: M79.89] Diagnosis: Dyspnea[ICD10: R06.00] Belia Reid [facility] CPT-4: 9921 3 06/24/2019 ([id number]) OFFICE/OUTPATIENT VISIT EST Diagnosis: Acute bronchitis[ICD10: J20.9] Diagnosis: Colitis[ICD10: K52.9] Belia CORNELLLINE BushraMayda ANUSHKA [email or web address] CPT-4: 81424 06/16/2019 ([id number]) OFFICE/OUTPATIENT VISIT EST Diagnosis: Diarrhea[ICD10: R19.7] Diagnosis: Abdominal bloating[ICD10: R14.0] [facility] CPT- 4: 72029 06/08/2019 ([id number]) OFFICE/OUTPATIENT VISIT EST Diagnosis: Acute febrile illness[ICD10: R50.9] Diagnosis: Colitis[ICD10: K52.9] [facility] CPT-4: 91161 05/26/2019 ([id number]) OFFICE/OUTPATIENT VISIT EST Diagnosis: Chronic obstructive pulmonary disease, unspecified[ICD10: J44.9] Diagnosis: Pulmonary fibrosis[ICD10: J84.10] Diagnosis: Intermittent stridor[ICD10: R06.1] Diagnosis: Muscle weakness[ICD10: M62.81] Belia CORNELLLINE Bushra Mayda [facility]ACH[email or web address] CPT-4: 17043 05/13/2019 ([id number]) OFFICE/OUTPATIENT VISIT EST Diagnosis: Stridor[ICD10: R06.1] Diagnosis: COUGH[ICD10: R05] Beliahanna CORNELLLINE BushraMayda ANUSHKA [employer] [facility] CPT-4: 62034 05/06/2019 ([id number]) OFFICE/OUTPATIENT VISIT EST Diagnosis: Stridor[ICD10: R06.1] Diagnosis: Muscle, jerky movements (uncontrolled)[ICD10: G25.5] Belia REID [employer] [facility] CPT-4: 22647 04/29/2019 ([id number]) OFFICE/OUTPATIENT VISIT EST Diagnosis: Upper respiratory infection[ICD10: J06.9] Diagnosis: Flank pain[ICD10: R10.9] Diagnosis: Weight gain[ICD10: R63.5] Pattie AMBRIZ [employer] [facility] CPT-4: 02854 04/16/2019 ([id number]) OFFICE/OUTPATIENT VISIT EST Diagnosis: Generalized pruritus[ICD10: L29.9] Belia BASS MARIE Yuridia REID [employer] [facility] CPT-4: 51810 04/08/2019 ([id number]) OFFICE/OUTPATIENT VISIT EST Diagnosis: Acute bursitis of left shoulder[ICD10: M75.52] Diagnosis: Cervicalgia[ICD10: M54.2] Diagnosis: Chest wall pain[ICD10: R07.89] Belia SMITH [employer] [facility] CPT-4: 58612 01/22/2019 ([id number]) OFFICE/OUTPATIENT VISIT EST Diagnosis: Abdominal pain[ICD10: R10.9] Diagnosis: Pyelonephritis[ICD10: N12] Pattie DOMINGUEZ [email or web address] CPT-4: 20613 01/07/2019 ([id number]) OFFICE/OUTPATIENT VISIT EST Diagnosis: Low back pain[ICD10: M54.5] Diagnosis: Left lumbar radiculopathy[ICD10: M54.16] Diagnosis: Left flank pain[ICD10: R10.9] Diagnosis: Left lower quadrant pain[ICD10: R10.32] Diagnosis: FLU VACCINE[ICD10: Z23] Belia FREDERICK [email or web address] CPT-4: 49095 12/24/2018 ([id number]) OFFICE/OUTPATIENT VISIT EST Diagnosis: Migraine, unspecified, not intractable, without status migrainosus[ICD10: G43.909] Diagnosis: Fibromyalgia[ICD10: M79.7] Belia Orenilson DOMINGUEZ [facility] CPT-4: 50082 11/20/2018 ([id number]) OFFICE/OUTPATIENT VISIT EST Diagnosis: Migraine, unspecified, intractable, without status migrainosus[ICD10: G43.919] Diagnosis: Acute sinusitis, unspecified[ICD10: J01.90] Pattie REID DO [facility] CPT-4: 47749 11/04/2018 ([id number]) OFFICE/OUTPATIENT VISIT EST Diagnosis: Pain in left wrist[ICD10: M25.532] Diagnosis: Other dorsalgia[ICD10: M54.89] Pattie REID DO [facility] CPT-4: 73538 09/08/2018 ([id number]) OFFICE/OUTPATIENT VISIT EST Diagnosis: Acute stress reaction[ICD10: F43.0] Diagnosis: Pruritus, unspecified[ICD10: L29.9] 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, 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] Belia REID DO [facility] CPT-4: 16454 08/20/2018 ([id number]) OFFICE/OUTPATIENT VISIT EST Diagnosis: Hypotension due to drugs[ICD10: I95.2] Diagnosis: Paroxysmal atrial fibrillation[ICD10: I48.0] Diagnosis: Localized edema[ICD10: R60.0] Belia REID DO [facility] CPT-4: 10632 06/19/2018 ([id number]) OFFICE/OUTPATIENT VISIT EST Diagnosis: Generalized hyperhidrosis[ICD10: R61] Diagnosis: Essential (primary) hypertension[ICD10: I10] Diagnosis: Supraventricular tachycardia[ICD10: I47.1] Belia REID DO [facility] CPT-4: 99251 06/09/2018 ([id number]) OFFICE/OUTPATIENT VISIT EST Diagnosis: Stridor[ICD10: R06.1] Diagnosis: Dependence on supplemental oxygen[ICD10: Z99.81] Diagnosis: Weakness[ICD10: R53.1] Diagnosis: Supraventricular tachycardia[ICD10: I47.1] Belia REID DO [facility] CPT-4: 31510 05/21/2018 ([id number]) OFFICE/OUTPATIENT VISIT EST Diagnosis: Cervical disc disorder with radiculopathy, unspecified cervical region[ICD10: M50.10] Belia REID DO [facility] CPT-4: 43013 04/16/2018 ([id number]) OFFICE/OUTPATIENT VISIT EST Diagnosis: Migraine, unspecified, intractable, without status migrainosus[ICD10: G43.919] Diagnosis: Fibromyalgia[ICD10: M79.7] Pattie DOMINGUEZ [facility] CPT-4: 70236 04/01/2018 ([id number]) NURSE/OUTPATIENT VISIT EST Diagnosis: Hematuria, unspecified[ICD10: R31.9] Diagnosis: Dysuria[ICD10: R30.0] Belia REID [employer] [facility] CPT-4: 57974 03/17/2018 ([id number]) OFFICE/OUTPATIENT VISIT EST Diagnosis: Erythema intertrigo[ICD10: L30.4] Diagnosis: Chronic obstructive pulmonary disease with (acute) exacerbation[ICD10: J44.1] Diagnosis: Type 2 diabetes mellitus with hyperglycemia[ICD10: E11.65] Belia REID [employer] [facility] CPT-4: 70077 03/06/2018 ([id number]) OFFICE/OUTPATIENT VISIT EST Diagnosis: Cervicalgia[ICD10: M54.2] Pattie AMBRIZ [employer] [facility] CPT-4: 23674 02/05/2018 ([id number]) OFFICE/OUTPATIENT VISIT EST Diagnosis: Candidiasis of skin and nail[ICD10: B37.2] Diagnosis: Cervicalgia[ICD10: M54.2] Pattie CAINR [employer] [facility] CPT-4: 25203 01/20/2018 ([id number]) OFFICE/OUTPATIENT VISIT EST Diagnosis: Pain in thoracic spine[ICD10: M54.6] Diagnosis: Radiculopathy, thoracic region[ICD10: M54.14] Belia REID [employer] [facility] CPT-4: 08670 12/25/2017 ([id number]) OFFICE/OUTPATIENT VISIT EST Diagnosis: Pain in thoracic spine[ICD10: M54.6] Diagnosis: Other muscle spasm[ICD10: M62.838] Diagnosis: FLU VACCINE[ICD10: Z23] Diagnosis: PNEUMOCOCCAL VACCINE[ICD10: Z23] Belia REID DO [facility] CPT-4: 53872 12/17/2017 ([id number]) OFFICE/OUTPATIENT VISIT EST Diagnosis: Chronic obstructive pulmonary disease with (acute) exacerbation[ICD10: J44.1] Belia REID DO [facility] CPT- 4: 24028 10/30/2017 ([id number]) OFFICE/OUTPATIENT VISIT EST Diagnosis: Chronic obstructive pulmonary disease with acute lower respiratory infection[ICD10: J44.0] Diagnosis: Mild intermittent asthma with (acute) exacerbation[ICD10: J45.21] Belia REID [employer] [facility] CPT-4: 92477 10/23/2017 ([id number]) NURSE/OUTPATIENT VISIT EST Diagnosis: Migraine, unspecified, not intractable, without status migrainosus[ICD10: G43.909] Belia REID [employer] [facility] CPT - 4: 81580 08/26/2017 ([id number]) OFFICE/OUTPATIENT VISIT EST Diagnosis: Urinary tract infection, site not specified[ICD10: N39.0] Diagnosis: Encounter for screening for osteoporosis[ICD10: Z13.820] Diagnosis: Encounter for screening mammogram for malignant neoplasm of breast[ICD10: Z12.31] Diagnosis: Acute bronchitis, unspecified[ICD10: J20.9] Pattie REID DO [facility] CPT-4: 42518 07/19/2017 ([id number]) OFFICE/OUTPATIENT VISIT EST Diagnosis: Rash and other nonspecific skin eruption[ICD10: R21] Pattie REID DO [facility] CPT-4: 42709 05/29/2017 ([id number]) OFFICE/OUTPATIENT VISIT EST Diagnosis: Diarrhea, unspecified[ICD10: R19.7] Diagnosis: Tinea corporis[ICD10: B35.4] Diagnosis: Tinea cruris[ICD10: B35.6] Diagnosis: Migraine, unspecified, not intractable, without status migrainosus[ICD10: G43.909] Belia REID [facility] CPT - 4: 72967 05/07/2017 ([id number]) OFFICE/OUTPATIENT VISIT EST Diagnosis: Stridor[ICD10: R06.1] Diagnosis: Chronic obstructive pulmonary disease with (acute) exacerbation[ICD10: J44.1] Belia REID DO [facility] CPT- 4: 08051 03/18/2017 ([id number]) OFFICE/OUTPATIENT VISIT EST Diagnosis: Type 2 diabetes mellitus with hyperglycemia[ICD10: E11.65] Belia REID DO [facility] CPT-4: 40623 02/27/2017 OFFICE/OUTPATIENT VISIT EST Diagnosis: Type 2 diabetes mellitus with hyperglycemia[ICD10: E11.65] Pattie REID [employer] [facility] CPT-4: 67977 02/22/2017 ([id number]) OFFICE/OUTPATIENT VISIT EST Diagnosis: Urinary tract infection, site not specified[ICD10: N39.0] Diagnosis: Pneumonia, unspecified organism[ICD10: J18.9] Diagnosis: Type 2 diabetes mellitus with hyperglycemia[ICD10: E11.65] Belia REID [facility] CPT-4: 46007 01/23/2017 ([id number]) OFFICE/OUTPATIENT VISIT EST Diagnosis: Type 2 diabetes mellitus with hyperglycemia[ICD10: E11.65] Diagnosis: Localized edema[ICD10: R60.0] Diagnosis: PNEUMOCOCCAL VACCINE[ICD10: Z23] Diagnosis: FLU VACCINE[ICD10: Z23] Belia FREDERICK [facility] CPT-4: 02068 12/20/2016 OFFICE/OUTPATIENT VISIT EST Diagnosis: Pain in thoracic spine[ICD10: M54.6] Diagnosis: Low back pain[ICD10: M54.5] Diagnosis: Cervicalgia[ICD10: M54.2] Diagnosis: Cough[ICD10: R05] Celeste Ferreira BELIA REID [employer] [facility] CPT-4: 60401 10/08/2016 ([id number]) OFFICE/OUTPATIENT VISIT EST Diagnosis: Primary insomnia[ICD10: F51.01] Diagnosis: Migraine, unspecified, not intractable, without status migrainosus[ICD10: G43.909] Diagnosis: Type 2 diabetes mellitus with hyperglycemia[ICD10: E11.65] Belia REID DO [facility] CPT-4: 44482 09/19/2016 ([id number]) OFFICE/OUTPATIENT VISIT EST Diagnosis: Migraine, unspecified, not intractable, without status migrainosus[ICD10: G43.909] Diagnosis: Generalized abdominal pain[ICD10: R10.84] Diagnosis: Cough[ICD10: R05] Belia REID DO [facility] CPT-4: 83477 08/20/2016 ([id number]) OFFICE/OUTPATIENT VISIT EST Diagnosis: Chronic obstructive pulmonary disease, unspecified[ICD10: J44.9] Diagnosis: Stridor[ICD10: R06.1] Belia REID DO [facility] CPT-4: 62585 06/19/2016 ([id number]) OFFICE/OUTPATIENT VISIT EST Diagnosis: Chronic obstructive pulmonary disease, unspecified[ICD10: J44.9] Diagnosis: Personal history of urinary (tract) infections[ICD10: Z87.440] Belia REID DO [facility] CPT-4: 60095 06/04/2016 ([id number]) OFFICE/OUTPATIENT VISIT EST Diagnosis: Stridor[ICD10: R06.1] Diagnosis: Chronic obstructive pulmonary disease with acute lower respiratory infection[ICD10: J44.0] Diagnosis: Other specified diseases of intestine[ICD10: K63.89] Diagnosis: Cystitis, unspecified without hematuria[ICD10: N30.90] Belia REID DO [facility] CPT-4: 27278 05/02/2016 ([id number]) OFFICE/OUTPATIENT VISIT EST Diagnosis: Fibromyalgia[ICD10: M79.7] Diagnosis: Urinary tract infection, site not specified[ICD10: N39.0] Belia REID DO [facility] CPT-4: 20178 04/03/2016 ([id number]) OFFICE/OUTPATIENT VISIT EST Diagnosis: Unspecified asthma, uncomplicated[ICD10: J45.909] Diagnosis: Cough[ICD10: R05] Lidia HSUQUELINE BushraMayda ANUSHKA [employer] [facility] T-4: 15494 02/29/2016 ([id number]) OFFICE/OUTPATIENT VISIT EST Diagnosis: Migraine, unspecified, intractable, without status migrainosus[ICD10: G43.919] Diagnosis: Urinary tract infection, site not specified[ICD10: N39.0] Belia Anushka HSUQUELINE BushraMayda ANUSHKA [employer] [facility] CPT-4: 25544 02/02/2016 ([id number]) OFFICE/OUTPATIENT VISIT EST Diagnosis: Urinary tract infection, site not specified[ICD10: N39.0] Diagnosis: Unspecified abdominal pain[ICD10: R10.9] Diagnosis: Pain in thoracic spine[ICD10: M54.6] Diagnosis: Type 2 diabetes mellitus with diabetic neuropathic arthropathy[ICD10: E11.610] Belia Anushka HSUQUELINE BushraMayda ANUSHKA [employer] [facility] CPT-4: 84347 12/05/2015 ([id number]) OFFICE/OUTPATIENT VISIT EST Diagnosis: Chronic obstructive pulmonary disease with (acute) exacerbation[ICD10: J44.1] Diagnosis: Migraine, unspecified, not intractable, without status migrainosus[ICD10: G43.909] Lidia HSUQUELINE BushraMayda ANUSHKA [employer] [facility] CPT -4: 56402 10/26/2015 ([id number]) OFFICE/OUTPATIENT VISIT EST Diagnosis: Hematuria, unspecified[ICD10: R31.9] Diagnosis: Urinary tract infection, site not specified[ICD10: N39.0] Lidia HSUQUELINE BushraMayda ANUSHKA [employer] [facility] CPT-4: 08864 10/05/2015 OFFICE/OUTPATIENT VISIT EST Diagnosis: Chronic obstructive pulmonary disease, unspecified[ICD10: J44.9] Diagnosis: Muscle weakness (generalized)[ICD10: M62.81] Diagnosis: Polyneuropathy, unspecified[ICD10: G62.9] Diagnosis: Other intervertebral disc degeneration, 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] Diagnosis: Fibromyalgia[ICD10: M79.7] Belia Zacharyisabellaotoniel BELIA Yuridia DAILEYER [employer] [facility] CPT-4: 12715 09/15/2015 ([id number]) OFFICE/OUTPATIENT VISIT EST Diagnosis: Disorientation, unspecified[ICD10: R41.0] Diagnosis: Headache[ICD10: R51] Diagnosis: Paresthesia of skin[ICD10: R20.2] Lidia REID DO [facility] CPT-4: 47195 08/24/2015 ([id number]) OFFICE/OUTPATIENT VISIT EST Diagnosis: Type 2 diabetes mellitus with hyperglycemia[ICD10: E11.65] Diagnosis: Chronic obstructive pulmonary disease with acute lower respiratory infection[ICD10: J44.0] Belia REID DO [facility] CPT-4: 30235 07/05/2015 ([id number]) OFFICE/OUTPATIENT VISIT EST Diagnosis: Mild intermittent asthma with (acute) exacerbation[ICD10: J45.21] Diagnosis: Chronic obstructive pulmonary disease, unspecified[ICD10: J44.9] Belia REID [facility] CPT-4: 98124 06/06/2015 ([id number]) OFFICE/OUTPATIENT VISIT EST Diagnosis: Chronic obstructive pulmonary disease with (acute) exacerbation[ICD10: J44.1] Lidia REID [facility] CPT- 4: 34695 05/23/2015 ([id number]) OFFICE/OUTPATIENT VISIT EST Diagnosis: Type 2 diabetes mellitus with hyperglycemia[ICD10: E11.65] Diagnosis: Functional dyspepsia[ICD10: K30] Belia REID DO [facility] CPT-4: 12613 05/05/2015 ([id number]) OFFICE/OUTPATIENT VISIT EST Diagnosis: Type 2 diabetes mellitus with hyperglycemia[ICD10: E11.65] Diagnosis: Glycosuria[ICD10: R81] Diagnosis: Urinary tract infection, site not specified[ICD10: N39.0] Belia REID DO [facility] CPT-4: 35501 03/30/2015 ([id number]) OFFICE/OUTPATIENT VISIT EST Diagnosis: Generalized abdominal pain[ICD10: R10.84] Diagnosis: Diarrhea, unspecified[ICD10: R19.7] Diagnosis: Urinary tract infection, site not specified[ICD10: N39.0] Diagnosis: Gastro-esophageal reflux disease without esophagitis[ICD10: K21.9] Belia REID [facility] CPT-4: 02388 02/03/2015 ([id number]) OFFICE/OUTPATIENT VISIT EST Diagnosis: Other specified noninflammatory disorders of vagina[ICD10: N89.8] Diagnosis: Follicular disorder, unspecified[ICD10: L73.9] Diagnosis: Functional dyspepsia[ICD10: K30] Diagnosis: FLU VACCINE[ICD10: Z23] Belia SMITH [facility] CPT-4: 45816 12/29/2014 ([id number]) OFFICE/OUTPATIENT VISIT EST 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] Diagnosis: RESTLESS LEGS SYNDROME[ICD9: 333.94] Diagnosis: MIGRAINE NOS/NOT INTRCBL[ICD9: 346.90] [facility]: 21228 09/02/2014 ([id number]) OFFICE/OUTPATIENT VISIT EST Diagnosis: Cervical radiculopathy[ICD9: 723.4] Diagnosis: Cervicalgia[ICD9: 723.1] Diagnosis: Degenerative disc disease, cervical[ICD9: 722.4] 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I[ICD9: 250.00] [facility]: 64101 04/01/2014 OFFICE/OUTPATIENT VISIT EST Diagnosis: Reactive airway disease[ICD9: 493.90] Belia HSUPAUL LUBNA BushraMayda [facility]: 12673 03/16/2014 ([id number]) OFFICE/OUTPATIENT VISIT EST Diagnosis: BRONCHITIS, ACUTE[ICD9: 466.0] Diagnosis: Reactive airway disease[ICD9: 493.90] Beliahanna Reid MINAL LUBNA BushraMayda [facility]: 76446 03/09/2014 OFFICE/OUTPATIENT VISIT EST Diagnosis: BRONCHITIS, ACUTE[ICD9: 466.0] Diagnosis: WHEEZING[ICD9: 786.07] Huong Osborne BELIA BushraMayda RALF [facility] CPT-4: 15440 03/03/2014 OFFICE/OUTPATIENT VISIT EST Diagnosis: BRONCHITIS, ACUTE[ICD9: 466.0] Diagnosis: WHEEZING[ICD9: 786.07] Huong Peguero [facility] CPT-4: 72174 03/01/2014 ([id number]) OFFICE/OUTPATIENT VISIT EST Diagnosis: GERD[ICD9: 530.81] Diagnosis: ARTHRALGIA-MULTIPLE SITES[ICD9: 719.49] Diagnosis: LUMB/LUMBOSAC DISC DEGEN[ICD9: 722.52] Diagnosis: - I - FIBROMYALGIA[ICD9: 729.1] Belia Humphriesisabellaotoniel TomlinsonMayda ANUSHKA [facility] CPT-4: 07615 02/09/2014 ([id number]) OFFICE/OUTPATIENT VISIT EST Diagnosis: Peptic ulcer disease[ICD9: 533.90] Diagnosis: RESTLESS LEGS SYNDROME[ICD9: 333.94] Diagnosis: Neuropathy[ICD9: 355.9] Belia Humphriesisabellaotoniel CORNELLBELIA Yuridia FREDERICK [facility] CPT-4: 39923 12/23/2013 ([id number]) OFFICE/OUTPATIENT VISIT EST Diagnosis: URINARY TRACT INFECTION[ICD9: 599.0] Belia Humphriesisabellaotoniel CORNELL CLAYTON BushraMayda ANUSHKA [facility] CPT-4: 58221 10/30/2013 ([id number]) OFFICE/OUTPATIENT VISIT EST Diagnosis: Flank pain[ICD9: 789.00] Belia Humphriesisabellaotoniel CORNELLBELIA BushraMayda KIESHA POOLE [facility] CPT-4: 97725 10/21/2013 ([id number]) OFFICE/OUTPATIENT VISIT EST Diagnosis: INFLAMED SEBORR KERATOS[ICD9: 702.11] Diagnosis: Brachioradial pruritus[ICD9: 698.9] Diagnosis: ASTHMA NOS[ICD9: 493.90] Belia Humphriesisabellaotoniel CORNELLBELIA BushraMayda KIESHA POOLE [facility] CPT-4: 99303 10/05/2013 ([id number]) OFFICE/OUTPATIENT VISIT EST Diagnosis: HYPERTENSION[ICD9: 401.9] Diagnosis: - I - FIBROMYALGIA[ICD9: 729.1] Diagnosis: DIZZINESS/VERTIGO[ICD9: 780.4] Diagnosis: MIGRAINE NOS/NOT INTRCBL[ICD9: 346.90] Diagnosis: Diabetic peripheral neuropathy[ICD9: 250.60] Diagnosis: Flank pain[ICD9: 789.00] Belia CORNELLLINE Yuridia POOLE [facility] CPT-4: 82552 08/04/2013 ([id number]) OFFICE/OUTPATIENT VISIT EST Diagnosis: ALLERGIC RHINITIS[ICD9: 477.9] Belia CORNELLLINE Bushra REID [facility] CPT-4: 19546 07/13/2013 OFFICE/OUTPATIENT VISIT EST Diagnosis: URINARY TRACT INFECTION[ICD9: 599.0] Huong De LunaFidepool REID [facility] CPT-4: 58707 07/03/2013 OFFICE/OUTPATIENT VISIT EST Diagnosis: HYPERTENSION[ICD9: 401.9] Diagnosis: URINARY TRACT INFECTION[ICD9: 599.0] Diagnosis: BACKACHE[ICD9: 724.5] Diagnosis: URINARY INCONTINENCE[ICD9: 788.30] Huong De LunaFidepool BASS MARIE Yuridia [facility]: 90694 05/27/2013 ([id number]) OFFICE/OUTPATIENT VISIT EST Diagnosis: Flank pain[ICD9: 789.00] Belia Humphriesisabellaotoniel CORNELLBELIA BushraMayda KIESHA [facility] CPT-4: 64927 05/25/2013 ([id number]) OFFICE/OUTPATIENT VISIT EST Diagnosis: B-COMPLEX DEFIC NEC[ICD9: 266.2] Belia Anushka CORNELLLINE Yuridia [facility] C[facility]: 26765 05/04/2013 ([id number]) OFFICE/OUTPATIENT VISIT EST Diagnosis: ALLERGIC RHINITIS[ICD9: 477.9] Diagnosis: Vitamin B12 deficiency[ICD9: 266.2] Belia THOMPSON Yuridia REID [facility] CPT-4: 19041 04/17/2013 ([id number]) OFFICE/OUTPATIENT VISIT EST 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I[ICD9: 250.00] Diagnosis: URINARY TRACT INFECTION[ICD9: 599.0] Diagnosis: DIZZINESS/VERTIGO[ICD9: 780.4] Diagnosis: DIARRHEA[ICD9: 787.91] Belia Zacharynilson BRUNSON BushraMayda ZACHARYISABELLAReggie [facility] CPT-4: 66918 04/06/2013 ([id number]) OFFICE/OUTPATIENT VISIT EST Diagnosis: URINARY TRACT INFECTION[ICD9: 599.0] Diagnosis: URINARY RETENTION[ICD9: 788.20] Belia REID [facility] CPT-4: 37525 11/10/2012 ([id number]) OFFICE/OUTPATIENT VISIT EST Diagnosis: TACHYCARDIA[ICD9: 785.0] Diagnosis: SYNCOPE AND COLLAPSE[ICD9: 780.2] Diagnosis: CONSCIOUSNS ALTERAT NEC[ICD9: 780.09] Belia REID [facility] CPT-4: 95697 09/02/2012 OFFICE/OUTPATIENT VISIT EST Diagnosis: TACHYCARDIA[ICD9: 785.0] Diagnosis: SYNCOPE AND COLLAPSE[ICD9: 780.2] Belia REID [facility] CPT-4: 06355 08/04/2012 ([id number]) OFFICE/OUTPATIENT VISIT EST Diagnosis: Loss of consciousness[ICD9: 780.09] Diagnosis: Tachycardia[ICD9: 785.0] Diagnosis: MALAISE AND FATIGUE[ICD9: 780.79] [facility]ia [facility]: 40863 07/21/2012 ([id number]) OFFICE/OUTPATIENT VISIT EST Diagnosis: BRONCHITIS, ACUTE[ICD9: 466.0] Diagnosis: ASTHMA NOS[ICD9: 493.90] Belia POOLE [facility] CPT-4: 89508 07/02/2012 ([id number]) OFFICE/OUTPATIENT VISIT EST Diagnosis: CEPHALGIA[ICD9: 784.0] Belia Peguero [facility] CPT-4: 46658 06/25/2012 ([id number]) OFFICE/OUTPATIENT VISIT EST Diagnosis: GERD[ICD9: 530.81] Diagnosis: DIARRHEA[ICD9: 787.91] Diagnosis: URINARY TRACT INFECTION[ICD9: 599.0] Diagnosis: ASTHMA NOS[ICD9: 493.90] Diagnosis: ALLERGIC RHINITIS[ICD9: 477.9] Belia REID [facility] CPT-4: 71204 06/24/2012 ([id number]) OFFICE/OUTPATIENT VISIT EST Diagnosis: MIGRAINE NOS/NOT INTRCBL[ICD9: 346.90] Diagnosis: TREMOR NEC[ICD9: 333.1] Diagnosis: CHRONIC PAIN SYNDROME[ICD9: 338.4] Belia Zacharynilson SALAZAR BushraMayda ANUSHKA [employer] [facility] CPT-4: 64655 05/20/2012 ([id number]) OFFICE/OUTPATIENT VISIT EST Diagnosis: DIZZINESS/VERTIGO[ICD9: 780.4] Diagnosis: PALPITATIONS[ICD9: 785.1] Diagnosis: TREMOR NEC[ICD9: 333.1] Diagnosis: ANXIETY STATE NOS[ICD9: 300.00] Diagnosis: POSTTRAUMATIC STRESS DISORDER[ICD9: 309.81] Belia Zacharynilson BRUNSON BushraMayda ANUSHKA [employer] [facility] CPT-4: 70594 05/08/2012 ([id number]) OFFICE/OUTPATIENT VISIT EST Diagnosis: MIGRAINE NOS/NOT INTRCBL[ICD9: 346.90] Diagnosis: FIBROMYALGIA[ICD9: 729.1] Diagnosis: SYNCOPE AND COLLAPSE[ICD9: 780.2] Diagnosis: Diabetic peripheral neuropathy[ICD9: 250.60] Belia Zacharynilson BELIA BushraMayda LUIS [employer] [facility] CPT-4: 66550 04/22/2012 OFFICE/OUTPATIENT VISIT EST Diagnosis: ROTATOR CUFF DIS NEC[ICD9: 726.19] Diagnosis: JOINT PAIN-SHLDER[ICD9: 719.41] Diagnosis: DYSPEPSIA[ICD9: 536.8] Belia Zacharynilson BELIA BushraMayda RALF [employer] CPT-4: 71474 02/13/2012 ([id number]) OFFICE/OUTPATIENT VISIT EST Diagnosis: MIGRAINE NOS/NOT INTRCBL[ICD9: 346.90] Diagnosis: GERD[ICD9: 530.81] Diagnosis: DYSPEPSIA[ICD9: 536.8] Belia BRUNSON BushraMayda RALF [employer] [facility] CPT-4: 84722 01/28/2012 OFFICE/OUTPATIENT VISIT EST Diagnosis: CEPHALGIA[ICD9: 784.0] Diagnosis: MIGRAINE NOS/NOT INTRCBL[ICD9: 346.90] Diagnosis: GERD[ICD9: 530.81] Diagnosis: INSOMNIA NOS[ICD9: 780.52] Belia Shi RAND DAILEYER [employer] [facility] CPT-4: 69177 12/26/2011 ([id number]) OFFICE/OUTPATIENT VISIT EST Diagnosis: CEPHALGIA[ICD9: 784.0] Diagnosis: MIGRAINE NOS/NOT INTRCBL[ICD9: 346.90] Diagnosis: MALAISE AND FATIGUE[ICD9: 780.79] Diagnosis: FIBROMYALGIA[ICD9: 729.1] Diagnosis: ALLERGIC RHINITIS[ICD9: 477.9] Belia REID [employer] [facility] CPT-4: 53556 11/14/2011 ([id number]) OFFICE/OUTPATIENT VISIT EST Diagnosis: MALAISE AND FATIGUE[ICD9: 780.79] Diagnosis: MUSCLE WEAKNESS-GENERAL[ICD9: 728.87] Diagnosis: MIGRAINE NOS/NOT INTRCBL[ICD9: 346.90] Diagnosis: JOINT PAIN-SHLDER[ICD9: 719.41] Belia REID [employer] [facility] CPT-4: 57385 09/12/2011 ([id number]) OFFICE/OUTPATIENT VISIT EST Diagnosis: CONCUSSION[ICD9: 850.9] Diagnosis: Ataxia[ICD9: 781.3] Diagnosis: DIZZINESS/VERTIGO[ICD9: 780.4] Belia REID [employer] [facility] CPT-4: 06389 08/15/2011 ([id number]) OFFICE/OUTPATIENT VISIT EST Diagnosis: THROMBOPHLEBITIS[ICD9: 451.9] Diagnosis: Subacromial bursitis[ICD9: 726.19] Diagnosis: ALLERGIC RHINITIS[ICD9: 477.9] Diagnosis: Lipoma[ICD9: 214.9] Belia REID [facility] CPT-4: 67212 08/09/2011 ([id number]) OFFICE/OUTPATIENT VISIT EST Diagnosis: THROMBOPHLEBITIS[ICD9: 451.9] Diagnosis: Arm pain[ICD9: 729.5] Diagnosis: Clostridium difficile colitis[ICD9: 008.45] Diagnosis: URINARY TRACT INFECTION[ICD9: 599.0] Belia REID [employer] [facility] CPT-4: 17710 07/03/2011 ([id number]) OFFICE/OUTPATIENT VISIT EST Diagnosis: ARTHRALGIA-MULTIPLE SITES[ICD9: 719.49] Diagnosis: Muscle cramp[ICD9: 729.82] Diagnosis: INSOMNIA NOS[ICD9: 780.52] Belia DOMINGUEZ [facility] CPT-4: 40819 06/04/2011 OFFICE/OUTPATIENT VISIT EST Diagnosis: Headache[ICD9: 784.0] Diagnosis: Allergic rhinitis[ICD9: 477.9] [facility]: 20802 05/03/2011 OFFICE/OUTPATIENT VISIT EST Diagnosis: LUMB/LUMBOSAC DISC DEGEN[ICD9: 722.52] Diagnosis: MIGRAINE NOS/NOT INTRCBL[ICD9: 346.90] Diagnosis: CHRONIC PAIN SYNDROME[ICD9: 338.4] Diagnosis: RESTLESS LEGS SYNDROME[ICD9: 333.94] Belia CORNELL CLAYTON Yuridia [facility]: 62263 04/05/2011 OFFICE/OUTPATIENT VISIT EST Diagnosis: MIGRAINE NOS/NOT INTRCBL[ICD9: 346.90] Diagnosis: GERD[ICD9: 530.81] [facility]: 57449 03/08/2011 OFFICE/OUTPATIENT VISIT EST Diagnosis: URINARY TRACT INFECTION[ICD9: 599.0] Diagnosis: Vertigo[ICD9: 780.4] Diagnosis: GERD[ICD9: 530.81] [facility]: 89948 01/24/2011 OFFICE/OUTPATIENT VISIT EST Diagnosis: Hypotension[ICD9: 458.9] Diagnosis: Syncopal episodes[ICD9: 780.2] Diagnosis: MIGRAINE NOS/NOT INTRCBL[ICD9: 346.90] Diagnosis: MALAISE AND FATIGUE[ICD9: 780.79] Belia Zacharynilson Paredes Yuridia [facility] CPT-[facility]: 84750 01/02/2011 OFFICE/OUTPATIENT VISIT EST Diagnosis: Tinea cruris[ICD9: 110.3] Diagnosis: Intertrigo[ICD9: 695.89] Diagnosis: MIGRAINE NOS/NOT INTRCBL[ICD9: 346.90] Belia COKER Yuridia [facility] CPT-[facility]: 84375 12/07/2010 OFFICE/OUTPATIENT VISIT EST Diagnosis: PALPITATIONS[ICD9: 785.1] Diagnosis: ANXIETY STATE NOS[ICD9: 300.00] Belia Zacharyisabellaotoniel [facility]BELIA [facility] CPT-4: 73183 11/16/2010 OFFICE/OUTPATIENT VISIT EST Diagnosis: URINARY TRACT INFECTION[ICD9: 599.0] Diagnosis: MIGRAINE NOS/NOT INTRCBL[ICD9: 346.90] Iraida Robert SONJA UELINE [facility] CPT-4: 02744 11/02/2010 OFFICE/OUTPATIENT VISIT EST Diagnosis: ALLERGIC RHINITIS[ICD9: 477.9] Diagnosis: ANXIETY STATE NOS[ICD9: 300.00] Beliahanna HSUQUELINE [facility] CPT-4: 43513 10/18/2010 OFFICE/OUTPATIENT VISIT EST Belia Zacharyisabellaotoniel [facility]BELIA [facility] CPT- 4: 07214 09/19/2010 OFFICE/OUTPATIENT VISIT EST Belia Zacharyisabellaotoniel CORNELLBELIA [facility] CPT- 4: 64261 09/06/2010 ([id number]) OFFICE/OUTPATIENT VISIT EST Belia Zacharyisabellaotoniel CASILLAS UEL[facility] CPT-4: 29258 08/10/2010 ([id number]) OFFICE/OUTPATIENT VISIT EST Belia Zacharyisabellaotoniel HSUQ UELINE [facility] CPT-4: 03400 05/11/2010 ([id number]) OFFICE/OUTPATIENT VISIT, EST Belia HSU ROBERTOCLAYTON [facility] CPT-4: 68795 04/06/2010 ([id number]) OFFICE/OUTPATIENT VISIT, EST Belia HSU QUELINE [facility] CPT-4: 30864 02/09/2010 ([id number]) OFFICE/OUTPATIENT VISIT, EST Belia DELGADO [facility] CPT-4: 30105 01/05/2010 ([id number]) OFFICE/OUTPATIENT VISIT, EST Belia HSU ROBERTOCLAYTON [facility] CPT-4: 70229 12/07/2009 ([id number]) OFFICE/OUTPATIENT VISIT, EST Bel[facility]anna [facility] CPT-4: 58297 11/08/2009 ([id number]) OFFICE/OUTPATIENT VISIT, RIOS [facility] CPT-4: 24145 10/24/2009 ([id number]) OFFICE/OUTPATIENT VISIT, [facility] CPT-4: 84479 07/25/2009 ([id number]) OFFICE/OUTPATIENT VISIT, [facility] CPT-4: 86856 05/26/2009 Plan of Care Planned Activity Notes [...] Visit Diagnosis Plan: Colitis Discussion: Levaquin/Fla gyl Alexander Diet ICD-9 : 558.9 ICD-10 : K52.9 06/16/2019 Visit Diagnosis Plan: Acute bronchitis Discussion: Cov er with levaquin Increase SVNs with albuterol to QID Has oxygen using q HS routinely and prn To ER if oxygen levels drop or worsening respiratory symptoms ICD-9 : 466.0 ICD-10 : J20.9 06/16/2019 App[facility]ment: [facility] [phone] [id number] [facility] 06/16/2019 Patient Education: Levaquin- [employer] Coupon [phone] [email or web address] Completed 06/16/2019 Visit Diagnosis Plan: Diarrhea Discussion: Vancomycin for 10 days and notify if not improving or worsening BLAND diet Hydrate ICD-9 : 787.91 ICD-10 : R19.7 06/08/2019 Appointment: Belia Reidtel: [address] [place] [address] TELEMEDICINE 06/08/2019 Visit Diagnosis Plan: Colitis Discussion: Flagyl plus cipro to cover for both colitis and UTI Notify or to ER if worsening ICD-9 : 558.9 ICD-10 : K52.9 05/26/2019 Visit Diagnosis Plan: Acute febrile illness Discussion : Notify if worsens ICD-9 : 780.60 ICD-10 : R50.9 05/26/2019 Appointment: Belia Reidtel: [address] [place] [address] TELEMEDICINE 05/26/2019 Appointment: Pattie Sotomayor [address] RESCHEDULED 05/18/2019 Visit Diagnosis Plan: Chronic obstructive pulmonary di sease, unspecified Discussion: Recommend pulmonary rehab Patient states she never went to pulmonary rehab due to cost as well as transportation issues Finish trelagy Stop singulair Decrease hydroxyzine to 25mg po q HS Fwup [address] scan of Chest results discussed ICD-9 : 496 ICD-10 : J44.9 05/13/2019 Appointment: Belia Reid WPtel: [address] [place] [address] Hospital Follow Up 05/13/2019 Visit Diagnosis Plan: COUGH Discussion: Check CT scan of chest ICD-9 : 786.2 ICD-10 : R05 05/06/2019 Visit Diagnosis Plan: Stridor Discussion: Add Trelagy 1 p daily Add Singulair May need to see new marketing database coordinator ICD-9 : 786.1 ICD-10 : R06.1 05/06/2019 Appointment: Belia Reid: [address] [place] [address] FOLLOW UP 05/06/2019 Patient Education: Singulair- [employer] Coupon [phone] [email or web address] Completed 05/06/2019 Appointment: Belia Reid WPtel: [address] [place] [address] [place] RESCHEDULED 04/30/2019 Visit Diagnosis Plan: Stridor [...] : G25.5 04/29/2019 Appointment: Belia Reid WPtel: [address] [place] [address] Hospital Follow Up 04/29/2019 Patient Education: Valium- [employer] Coupon [id number] [email or web address] Completed 04/29/2019 Visit Diagnosis Plan: Flank pain [...] ICD-10 : R63.5 04/16/2019 Appointment: Pattie Sotomayor [address] [place] [address] ACUTE ILLNESS 04/16/2019 Patient Education: cyclobenzaprine- [employer] Coupon [id number] [email or web address] Completed 04/16/2019 Visit Diagnosis Plan: Migraine, unspecif ied, not intractable, without status migrainosus Discussion: Increase gabapentin to 600mg po BID ICD-9 : 346.90 ICD-10 : G43.909 04/08/2019 Visit Diagnosis Plan: Generalized pruritus Discussion: Hydroxyzine 25mg po TID for itching and anxiety ICD-9 : 698.9 ICD-10 : L29.9 04/08/2019 Appointment: Belia Reid WPtel: [address] [place] [address] ACUTE ILLNESS 04/08/2019 Visit Diagnosis Plan: Cervicalgia [...] : M75.52 01/22/2019 Appointment: Belia Reid WPtel: [address] [place] [address] Hospital Follow Up 01/22/2019 Visit Diagnosis Plan: Abdominal pain Discussion: urine culture sent to assess for any infection. rocephin given in office to cover for pyelonephritis. instructed to push fluids. call office with any new or worsening symptoms. ICD-9 : 789.00 ICD-10 : R10.9 01/07/2019 Appointment: Pattie Sotomayor [address] [place] [address] ACUTE ILLNESS 01/07/2019 Visit Diagnosis Plan: Low back pain Discussion: Stat C T of abdomen/pelvis now ICD-9 : 724.2 ICD-10 : M54.5 12/24/2018 Appointment: Belia Reid WPtel: [address] [place] [address] FOLLOW UP 12/24/2018 Visit Diagnosis Plan: Migraine, [...] M79.7 11/20/2018 Appointment: Belia Reid WPtel: [phone] ACUTE ILLNESS 11/20/2018 Patient Education: baclofen- OptimizeRX Coupon [phone] [id number] https://www.[employer]/samplet-Art/resources/getResource/61/[email or web address] Completed 11/20/2018 Visit Diagnosis Plan: Migraine, unspecif ied, intractable, without status migrainosus Discussion: toradol/phenergan given in o ffice (60 mg toradol, 12.5 mg phenergan). instructed to call if no improvement or worsening. instructed to follow up with underwriter mortgage loan since headaches are occurring more frequently to make sure vision is not the cause. ICD-9 : 346.91 ICD-10 : G43.919 11/04/2018 Visit Diagnosis Plan: Acute sinusitis, unspecified Dis cussion: zithromax prescribed to cover for sinus infection due to length of symptoms and clinincal s/s. ICD-9 : 461.9 ICD-10 : J01.90 11/04/2018 Appointment: Pattie Sotomayor [address] [place] [address] ACUTE ILLNESS 11/04/2018 Appointment: Belia Reid WPtel: [phone] [phone] [place] CANCELED 09/24/2018 Visit Diagnosis Plan: Type 2 diabetes me llitus with diabetic neuropathy, unspecified Discussion: Retry gabapentin 300mg po q HS ICD-9 : 250.60 ICD-10 : E11.40 09/18/2018 Visit Diagnosis Plan: Vitamin D deficiency, unspecifie d Discussion: Increase Vitamin D3 to 10,000 u daily ICD-9 : 268.9 ICD-10 : E55.9 09/18/2018 Visit Diagnosis Plan: Encounter for gene [facility] adult medical examination without abnormal findings [...] : I10 09/18/2018 Appointment: Belia Reid WPtel: [facility]4 [facility] Annual Well Visit 09/18/2018 Patient Education: gabapentin- OptimizeRX Coupon [phone] https://www.[email or web address]/samplemd/resources/getResource/[email or web address] Completed 09/18/2018 Visit Diagnosis Plan: Pain in [...] ICD-10 : M54.89 09/08/2018 Appointment: Pattie Sotomayor [address] [place], [place] [address] ACUTE ILLNESS 09/08/2018 Patient Education: prednisone- OptimizeRX Coupon [phone] https://www.[email or web address].com/samplemd/resources/getResource/61/[email or web address]-bj Completed 09/08/2018 Visit Diagnosis Plan: Pruritus, unspecified [...] E10.9 08/20/2018 Appointment: Belia Reid WPtel[facility] [facility] [facility] 08/20/2018 Patient Education: Lexapro- OptimizeRX Coupon [id number] Completed 08/20/2018 Patient Education: hydroxyzine HCl- OptimizeRX Coupon [id number] Completed 08/20/2018 Care Plan: MAMMOGRAM SCREENING LOINC : 2 6347-5 Pending 08/20/2018 Visit Diagnosis Plan: Paroxysmal atrial fibrillation D iscussion: Discuss eliquis need with cardiology at [facility] due to cost ICD-9 : 427.31 ICD-10 : I48.0 06/19/2018 Visit Diagnosis Plan: Hypotension due to drugs Discuss ion: Discussed decreasing cardizem dose due to low BP and edema but sees cardiology next week Follow Up: 1 months ICD-9 : 458.8 ICD-10 : I95.2 06/19/2018 Appointment: Belia Reid WPtel: [phone] [facility] [facility] FOLLOW UP 06/19/2018 Visit Diagnosis Plan: [...] : R61 06/09/2018 Appointment: Belia Reid WPtel: [address] [place] [address] FOLLOW UP 06/09/2018 Care Plan: CHEST X-RAY 2VW FRONTAL&LATL LOINC : 16473-3 Pending 05/26/2018 Visit Diagnosis Plan: Supraventricular tachycardia [...] : R53.1 05/21/2018 Appointment: Belia Reid WPtel: [address] [place] [address] Hospital Follow Up 05/21/2018 Visit Diagnosis Plan: Cervical disc diso rder with radiculopathy, unspecified cervical region Discussion: Scheduled for surgery on 06/02 10/[address] Faulkner ICD-9 : 722.0 ICD-10 : M50.10 04/16/2018 Appointment: Belia Reid WPtel: [address] [place] [address] Hospital Follow Up 04/16/2018 Visit Diagnosis Plan: [...] ICD-10 : G43.919 04/01/2018 Appointment: Pattie Sotomayor [address] [place] [address] ACUTE ILLNESS 04/01/2018 Appointment: Belia Reid WPtel: [address] [place], [place] [phone] [place] [address] 03/17/2018 Visit Diagnosis Plan: Chronic obstructiv e [...] : E11.65 03/06/2018 Appointment: Belia Reid WPtel: [address] [place] [address] Hospital Follow Up 03/06/2018 Visit Diagnosis Plan: Cervicalgia Discussion: spoke wi th dr. reid about patient. increased gabapentin to bid and started on celebrex bid. tramadrol rx written out to take prn. keep scheduled appt next week for myelogram. ICD-9 : 723.1 ICD-10 : M54.2 02/05/2018 Appointment: Pattie Sotomayor [address] [place], [place] [phone] ACUTE ILLNESS 02/05/2018 Care Plan: X-RAY EXAM NECK SPINE 4/5VWS cervical LOINC : 15751-7 Pending 01/21/2018 Visit Diagnosis Plan: Candidiasis of [...] ICD-10 : M54.2 01/20/2018 Appointment: Pattie Sotomayor [address] [place] [address] ACUTE ILLNESS 01/20/2018 Visit Diagnosis Plan: Pain in thoracic spine Discussio n: Proceed with CT scan of thoracic spine Will likely need PT ICD-9 : 724.1 ICD-10 : M54.6 12/25/2017 Appointment: Belia Reid WPtel: [address] [place] [address] FOLLOW UP 12/25/2017 Care Plan: CT THORAX W/O DYE LOINC : 473 66-0 Pending 12/25/2017 Visit Diagnosis Plan: Pain in thoracic spine Discussio n: Stretches Alternated heat/ice Topical aspercreme with lidocaine Flexeril Recheck 1 week Flu and Pneumovax given ICD-9 : 724.1 ICD-10 : M54.6 12/17/2017 Appointment: Belia Reid WPtel: [address] [place] [address] ACUTE ILLNESS 12/17/2017 Patient Education: Patient Medication [...] : J44.1 10/30/2017 Appointment: Belia Reid WPtel: [address] [place] [address] FOLLOW UP 10/30/2017 Patient Education: Patient Medication Summary Completed 10/30/2017 Visit Diagnosis Plan: Chronic obstructiv e pulmonary disease with acute lower respiratory infection Discussion: Continue SVNs with albuterol q4hrs Add Trelagy 1 inhalation daily Finish steroids Increase water intake Follow Up: 1 weeks ICD-9 : 496 ICD-10 : J44.0 10/23/2017 Appointment: Belia Reidtel: [address] [place], [place] [phone] [place] WORK IN 10/23/2017 Patient Education: Patient Medication Summary Completed 10/23/2017 Appointment: Belia Reid WPtel: [address] [place], [place] [phone] NO SHOW 10/16/2017 Visit Diagnosis Plan: Confusional [...] : E11.65 09/17/2017 Appointment: Belia Reid WPtel: [address] [place] [address] Annual Well Visit 09/17/2017 Patient Education: Patient Medication Summary Completed 09/17/2017 Appointment: Belia Reid WPtel: [address] [place], [place] [phone] [place] INJECTION 08/26/2017 Patient Education: Patient Medication Summary Completed 08/26/2017 Appointment: Belia Reid WPtel: [address] [place] [phone] [place] CANCELED 07/31/2017 Visit Diagnosis Plan: Encounter [...] : J20.9 07/19/2017 Appointment: Pattie Sotomayor [address] ACUTE ILLNESS 07/19/2017 Patient Education: Patient Medication Summary Completed 07/19/2017 Care Plan: MAMMOGRAM SCREENING LOINC : 2 6347-5 Pending 07/19/2017 Patient Education: Patient Medication Summary Completed 06/05/2017 Care Plan: LIPID PANEL LOINC : 47519-8 Pending 06/05/2017 Care Plan: A1C HPLC LOINC : 40187-4 Pending 06/05/2017 Visit Diagnosis Plan: Rash and other nonspecific skin eruption Discussion: called dr. riuz's office to see if patient can be evaluated today for possible need of iv antiobiotics or surgery. dr. ruiz's office was able to see her this am so patient sent there for referral. patient verbalized understanding. instructed to rtc prn if worsens or does not improve. ICD-9 : 782.1 ICD-10 : R21 05/29/2017 Appointment: Pattie Sotomayor [address] [phone] FOLLOW UP 05/29/2017 Patient Education: Patient Medication Summary Completed 05/29/2017 Visit Diagnosis Plan: Tinea corporis Discussion: Diflu can and topical nystatin Follow Up: 2 weeks ICD-9 : 110.5 ICD-10 : B35.4 05/07/2017 Visit Diagnosis Plan: Diarrhea, unspecified Discussion : Diflucan Cholestyramine Recheck 2weeks ICD-9 : 787.91 ICD-10 : R19.7 05/07/2017 Appointment: Belia Reid WPtel: [address] [place] [id number] [place] FOLLOW UP 05/07/2017 Patient Education: Patient Medication Summary Completed 05/07/2017 Appointment: Belia Reid WPtel: [address] [place] [address] [place] RESCHEDULED 04/30/2017 Visit Diagnosis Plan: Chronic obstructiv e pulmonary disease with (acute) exacerbation Discussion: Finish prednisone Continue S VNS with albuterol ICD-9 : 491.21 ICD-10 : J44.1 03/18/2017 Visit Diagnosis Plan: Stridor Discussion: Increase Ati van 0.5mg po to TID routinely for next week then can go back to prn ICD-9 : 786.1 ICD-10 : R06.1 03/18/2017 Appointment: Belia Reid WPtel: [address] [place], [place] [phone] ER Follow UP 03/18/2017 Patient Education: Patient [...] : E11.65 02/27/2017 Appointment: Belia Reid WPtel: [address] [place] [address] [place] FOLLOW UP 02/27/2017 Patient Education: Patient [...] ICD-10 : E11.65 02/22/2017 Appointment: Pattie Sotomayor [address] [place] [address] ACUTE ILLNESS 02/22/2017 Patient Education: Patient Medication [...] : J18.9 01/23/2017 Appointment: Belia Reid WPtel: [facility] [address] ER Follow UP 01/23/2017 Patient Education: Patient Medication Summary Completed 01/23/2017 Appointment: Pattie Sotomayor [address] [place] [address] CANCELED 01/17/2017 Appointment: Pattie Sotomayor [address] [place] [address] Annual Well Visit 01/14/2017 Visit Diagnosis Plan: Type 2 diabetes mellitus with hy perglycemia Discussion: Check CMP, HbA1C Flu shot and Prevnar 13 given Follow Up: 3 months ICD-9 : 250.02 ICD-10 : E11.65 12/20/2016 Visit Diagnosis Plan: Localized edema Discussion: Low Na diet Compression socks/Elevate feet ICD-9 : 782.3 ICD-10 : R60.0 12/20/2016 Appointment: Belia Reid WPtel: [address] [phone] [place] FOLLOW UP 12/20/2016 Patient Education: Patient Medication Summary Completed 12/20/2016 Patient Education: Patient Medication Summary Completed 10/10/2016 Visit Plan: Xrays of cervical, thoracic and lumbar spine at [facility] for Mobic (stop NSAIDS except Tylenol) and Flexeril UA sent for C&S Using SVN Call in 2-3 days if pain not improved or any worsening 10/08/2016 Appointment: Celeste Ferreira WPtel: 2305 [facility] ACUTE ILLNESS 10/08/2016 Patient Education: Patient Medication [...] : E11.65 09/19/2016 Appointment: Belia Reid WPtel: [address] [place], [place] [phone] 09/18 confirmed`sl FOLLOW UP 09/19/2016 Patient Education: [...] : R10.84 08/20/2016 Appointment: Belia Reid WPtel: [facility]9 [facility] 08/16 confirmed~sl FOLLOW UP 08/20/2016 Patient Education: [...] J44.9 06/19/2016 Appointment: Belia Reid WPtel: [address] [place] [phone] 06/18 confirmed ~ Hospital Follow Up 06/19/2016 [...] Z87.440 06/04/2016 Appointment: Belia Reid WPtel: [address] [place] [phone] 06/01 confirmed~ FOLLOW UP 06/04/2016 Patient Education: [...] : R06.1 05/02/2016 Appointment: Belia Reid WPtel: [address] [place] [phone] 05/01 confirmed ~ Hospital Follow Up 05/02/2016 [...] : N39.0 04/03/2016 Appointment: Belia Reid WPtel: [address] [place] [address] [facility] 04/03/2016 Patient Education: Patient Medication Summary Completed 04/03/2016 Visit Plan: Lungs are clear Her symptoms and exam are all upper airway restriction/constriction Can try supportive care Rx as above Follow up PRN 02/29/2016 Appointment: Lidia Hwang [address] [place] [address] ACUTE ILLNESS 02/29/2016 Patient Education: Patient Medication Summary Completed 02/29/2016 Visit Plan: Toradol/Phenergan today for Migraine Change to Clindamycin to cover lactobacillus for UTI Cover with flagyl due to hx of C. Diff 02/02/2016 Appointment: Belia Reid WPtel: [address] [place] [address] 01/31 confirmed` ACUTE ILLNESS 02/02/2016 Patient Education: Patient Medication Summary Completed 02/02/2016 Visit Plan: Increase neurontin to 300mg q AM and 600mg q PM Discussed neurology re-evaluation Flu shot given Need to check on Pneumonia shot Rx written out for albuterol 01/05/2016 Appointment: Belia Reid WPtel: [address] [place] [address] 01/03 confirmed ~ Annual Well Visit 01/05/2016 Patient Education: Patient Medication Summary Completed 01/05/2016 Visit Plan: Cipro Culture urine hydrate Flexeril refilled Alternate heat and ice for back Increase gabapentin to 300mg po BID Notify if worsens 12/05/2015 Appointment: Belia Reid WPtel: [phone] [facility] 11/30 confirmed~sl ACUTE ILLNESS 12/05/2015 Patient Education: Patient Medication Summary Completed 12/05/2015 Patient Education: Patient Medication Summary Completed 10/27/2015 Care Plan: [place] : [address]-0 Pending 10/27/2015 Care Plan: A1C HPLC LOINC : 63397-2 Pending 10/27/2015 Visit Plan: Lungs are CTA today and is f eeling improved overall Finish meds as ordered Continue inhalers and neb treatments Discussed migraine treatment options She does not feel she needs anything additional added today Refill of Januvia sent since no samples are available today 10/26/2015 Appointment: Lidia Hwang [address] [place], [place] [phone] Follow Up 10/26/2015 Appointment: Lidia Hwang [address] [place], [place] [phone] CANCELED 10/26/2015 Patient Education: Patient Medication Summary Completed 10/26/2015 Patient Education: Jesseniaia - 18+ - KENNETH - No CA [place] Completed 10/26/2015 Visit Plan: Office dip still abnormal Cu lture pending Switch to cipro - stop macrobid Push fluids - avoid caffeine Will call with culture results when available Follow up if worsening 10/05/2015 Appointment: Lidia Hwang [address] [place], [place] [phone] ER Follow UP 10/05/2015 Patient Education: Patient Medication Summary Completed 10/05/2015 Visit Plan: Proceed with PT for document ation of ROM and strength of all extremities Proceed with Power Mobility Device Trial of neurontin 300mg q HS--lyrica helped but patient unable to afford Recheck 1month 09/15/2015 Appointment: Belia Reid WPtel: [phone] [facility] 09/13 confirmed~sl SPECIAL 09/15/2015 Patient Education: Patient Medication Summary Completed 09/15/2015 Visit Plan: Fille out Loan Discharge Pap erwork for total and permanent disability 08/25/2015 Patient Education: Patient Medication Summary Completed 08/25/2015 Visit Plan: Discussed with Dr Anushka Haywood at [facility] Will get last date of carotid doppler from her director of financial planning and update if needed 08/24/2015 Appointment: Lidia Hwang [address] [place] [address] 08/22 confirmed~sl ACUTE ILLNESS 08/24/2015 Patient Education: Patient Medication Summary Completed 08/24/2015 Patient Education: Patient Medication Summary Completed 08/24/2015 Care Plan: US EXAM OF HEAD AND NECK carotid Ultrasound LOIN C : 26472-8 Pending 08/24/2015 Visit Plan: Long discussion about diet A ccuchecks daily Check HbA1C, CMP Change requip to mirapex 07/05/2015 Appointment: Belia Reid WPtel: [address] [place] [address] 07/03 confirmed ~sl FOLLOW UP 07/05/2015 Patient Education: Patient Medication Summary Completed 07/05/2015 Visit Plan: Add Breo ellipta 100 1 p BID Continue SVNs with duoneb QID 06/06/2015 Appointment: Belia Reid WPtel: [address] [place] [address] Patient is calling for a ride, then [...] not improving 05/23/2015 Appointment: Huong Osborne WPtel: [facility]7 [address] ACUTE ILLNESS 05/23/2015 Appointment: Lidia Hwang 2305 [facility] [facility] Follow UP 05/23/2015 Patient Education: Patient Medication Summary Completed 05/23/2015 Visit Plan: Check pancreatic enzymes and US of pancreas as patient can't understand why she has diabetes since has no family history Discussed weight, diet, exercise all play an important role in diabetes and are risk factors as well Continue Januvia and accuchecks daily 05/05/2015 Appointment: Belia Reid WPtel: [address] [place], [place] [phone] [place] FOLLOW UP 05/05/2015 Patient Education: Patient Medication Summary Completed 05/05/2015 Care Plan: US EXAM ABDOM COMPLETE LOINC : 37018-3 Ordered 05/05/2015 Visit Plan: Start Januvia 100mg daily [place] with diflucan and culture urine Accuchecks daily alternating times Recheck 6weeks 03/30/2015 Appointment: Belia Reid WPtel: [address] [place] [address] 03/29 confirmed~lb FOLLOW UP 03/30/2015 Patient Education: Patient Medication Summary Completed 03/30/2015 Appointment: Belia Reid WPtel: [address] [place] [address] 03/01 needs reschedule due to payment and insurance ~sl FOLLOW UP 03/02/2015 Visit Plan: Patient was just in ER last night so has not filled scripts yet Start Carafate and Flagyl and Cipro Add Hyophen 1 po BID Recheck 1mo 02/03/2015 Appointment: Belia Reid WPtel: [address] [place], [place] [phone] 02/02lm ~sl...02/03/15 appt confirmed cn ACUTE I LLNESS 02/03/2015 Patient Education: Patient Medication Summary Completed 02/03/2015 Visit Plan: Warm soaks to vaginal area K elex and Diflucan and observe Zofran to use prn 12/29/2014 Appointment: Belia Reid WPtel: [facility]6 [facility] 12/28 Confirmed ~sl ACUTE ILLNESS 12/29/2014 Patient Education: Patient Medication Summary Completed 12/29/2014 Appointment: Huong Osborne WPtel: [address] [place], [place] [phone] FOLLOW UP 09/24/2014 Appointment: Belia Reid WPtel: [address] [place], [place] [phone] 09/15 confirmed -mf FOLLOW UP 09/16/2014 Visit Plan: Increase requip to 2mg po BI D Increase lyrica to 225mg total a day by adding an extra 75mg in AM Recheck in 2weeks Continue to patch left eye while sleeping 09/02/2014 Appointment: Belia Reid WPtel: [address] [place] [place] [phone]t confirmed Hospital Follow Up 09/02 Patient Education: Patient Medication Summary Completed 09/02/2014 Visit Plan: To [facility] for observat ion to R/O CVA 08/25/2014 Appointment: Huong Osborne WPtel: [address] [place], [place] [phone] ACUTE ILLNESS 08/25/2014 Patient Education: Patient Medication Summary Completed 08/25/2014 Referral: Aaron Jonas WPtel: [facility] [address] [place] location Initiated 04/26/2014 Referral: Brian Srinivasan WPtel: [place] [id number] Referral Initiated 04/20/2014 Appointment: Belia Reid WPtel: [address] [place], [place] [phone] ER Follow UP 04/01/2014 Patient Education: Patient Medication Summary Completed 04/01/2014 Care Plan: MYELOGRAPHY NECK SPINE LOINC : 98403-4 Ordered 04/01/2014 Visit Plan: Continue Symbicort 160 at 2p BID Continue SVNs with duoneb at least QID Finish Levaquin Recheck 1mo on lyrica 03/16/2014 Appointment: Belia Reid WPtel: [address] [place] [address] 03/15 voicemail FOLLOW UP 03/16/2014 Patient Education: Patient Medication Summary Completed 03/16/2014 Visit Plan: Restart SVNs with duoneb QID Repeat prednisone Levaquin Continue symbicort Keep lyrica at same dose Recheck 1week 03/09/2014 Appointment: Belia Reid WPtel: [address] [place] [phone] FOLLOW UP 03/09/2014 Patient Education: Patient Medication Summary Completed 03/09/2014 Appointment: Belia Reid WPtel: [address] [place], [place] [phone] 03/03 showed up 15 minutes late for appt -- put her on Huong's side for 10:45am FORGIVEN PER DR FOLLOW UP 03/03/2014 Appointment: Huong Osborne WPtel: [address] [place], [place] [phone] FOLLOW UP 03/03/2014 Patient Education: Patient Medication Summary Completed 03/03/2014 Appointment: Huong Osborne WPtel: [address] [place], [place] [phone] ER Follow UP 03/01/2014 Patient Education: Patient Medication Summary Completed 03/01/2014 Visit Plan: Add carafate for this next m onth Increase lyrica to 150mg q HS 02/09/2014 Appointment: Belia Reid WPtel: [address] [place] [phone] [facility] Follow Up 02/09/2014 Patient Education: Patient Medication Summary Completed 02/09/2014 Visit Plan: Increase omeprazole back to 40mg po BID Use requip in AM and add lyrica 75mg q HS Recheck 1mo 12/23/2013 Appointment: Belia Reid WPtel: [address] [place] [address] FOLLOW UP 12/23/2013 Patient Education: Patient Medication Summary Completed 12/23/2013 Patient Education: Patient Medication Summary Completed 12/04/2013 Appointment: Belia Reid WPtel: [address] [place] [address] UA 10/30/2013 Patient Education: Patient Medication Summary Completed 10/30/2013 Appointment: Belia Reid WPtel: [address] [place] [address] UA 10/21/2013 Patient Education: Patient Medication Summary Completed 10/21/2013 Visit Plan: Cryotherapy as above TAC and hydroxyzine to use prn to itching spots and itching SKs Add Advair HFA /21 1 p BID 10/05/2013 Appointment: Belia Reid WPtel: [address] [place] [address] 10/01 pt called and confirmed ACUTE ILLNESS Patient Education: Patient Medication Summary Completed 10/05/2013 Appointment: Belia Reid WPtel: [address] [place] [address] will pay copay and part of past balance FOLLOW U P 08/04/2013 Patient Education: Patient Medication Summary Completed 08/04/2013 Appointment: Belia Reid WPtel: [address] [place], [place] [phone] [place] INJECTION 07/13/2013 Patient Education: Patient Medication Summary Completed 07/13/2013 Appointment: Huong Osborne WPtel: [address] [place], [place] [phone] ACUTE ILLNESS 07/03/2013 Patient Education: Patient Medication Summary Completed 07/03/2013 Visit Plan: Cipro and culture urine 05/27/2013 Appointment: Huong Osborneteabigail: 2305 [facility] [place] 05/26 confirmed appt and notified that balance and [employer] helicopter [employer] y is due at appt time FOLLOW UP 05/27/2013 Patient Education: Patient Medication Summary Completed 05/27/2013 Appointment: Belia Reid WPtel: [address] [place], [place] [phone] [place] UA 05/25/2013 Patient Education: Patient Medication Summary Completed 05/25/2013 Appointment: Belia Reid WPtel: [address] [place], [place] [phone] [place] INJECTION 05/04/2013 Patient Education: Patient Medication Summary Completed 05/04/2013 Appointment: Belia Reid WPtel: [address] [place], [place] [phone] [place] INJECTION 04/17/2013 Patient Education: Patient Medication Summary Completed 04/17/2013 Appointment: Belia Reid WPtel: [address] [place], [place] [phone] US INJECTION 04/15/2013 Appointment: Belia Reid WPtel: [address] [place], [place] [phone] 04/02 vm FOLLOW UP 04/06/2013 Patient Education: Patient Medication Summary Completed 04/06/2013 Visit Plan: Obtain lab results including UA from [facility] 11/10/2012 Appointment: Belia Reid WPtel: [address] [place] [phone] ER Follow UP 11/10/2012 Patient Education: Patient Medication Summary Completed 11/10/2012 Appointment: Belia Reid WPtel: [address] [place] [phone] 10/30/12 patient canceled appt due to fin ances. Offered to work something out, patient declined-LB FOLLOW UP 11/05/2012 Visit Plan: Continue Bystolic at current dose Pt has fwup with Neurology on September 16 09/02/2012 Appointment: Belia Reid WPtel: [address] [place] [address] FOLLOW UP 09/02/2012 Patient Education: Patient Medication Summary Completed 09/02/2012 Visit Plan: Continue bystolic at 5mg chris ly Sees Neurology tomorrow Use oxygen at bedtime 08/04/2012 Appointment: Belia Reid WPtel: 16 [place] [address] FOLLOW UP 08/04/2012 Patient Education: Patient Medication Summary Completed 08/04/2012 Appointment: Belia Reid WPtel: [address] [place] [address] Hospital fwup for 07/21/12. merged appointments FOLLOW UP 07/24/2012 Visit Plan: Start Bystolic 5mg daily for tachycardia Fwup with neurology for further workup Overnight O2 sat 07/21/2012 Appointment: Belia Reid WPtel: [address] [place] [address] Hospital Follow Up 07/21/2012 Patient Education: Patient Medication Summary Completed 07/21/2012 Visit Plan: SVN with Albuterol QID Add A velox 400mg daily Notify if worsens or persists 07/02/2012 Appointment: Belia Reid WPtel: [address] [place] [address] ACUTE ILLNESS 07/02/2012 Patient Education: Patient Medication Summary Completed 07/02/2012 Appointment: Belia Reid WPtel: [address] [place], [place] [phone] INJECTION 06/25/2012 Patient Education: Patient Medication Summary Completed 06/25/2012 Appointment: Belia Reid WPtel: [address] [place], [place] [phone] FOLLOW UP 06/24/2012 Patient Education: Patient Medication Summary Completed 06/24/2012 Appointment: Belia Reid WPtel: [address] [place], [place] [id number] 05/19 left message FOLLOW UP 05/20/2012 Patient [...] po TID 05/08/2012 Appointment: Belia Reid WPtel: [address] [place], [place] [id number] ACUTE ILLNESS 05/08/2012 Patient Education: Patient Medication Summary Completed 05/08/2012 Visit Plan: Continue current meds Contin ue lower dose on pain meds and Diazepam Still waiting on paperwork for botox for Migraines Will restart Neurontin at 600mg po q HS Pt going to stop Depakote due to can't afford 04/22/2012 Appointment: Belia Reid WPtel: [address] [place], [place] [id number] 04/21 Hospital Follow Up 04/22/2012 Patient Education: Patient Medication Summary Completed 04/22/2012 Visit Plan: Injection to shoulder as abo ve Continue current meds Has appointment with neurology on HAs in 02/13/2012 Appointment: Belia Reid WPtel: [address] [place], [place] [id number] Pt does not have $10 copay at [facility] t time - will bring it in next week. Kianna iqbal'ed this. - [place] FOLLOW UP 02/13/2012 Patient Education: Patient Medication Summary Completed 02/13/2012 Visit Plan: Proceed with headache specia list Change nexium to Protonix Phenergan to use prn Sumatriptan to use prn Pt still on Inderal 01/28/2012 Appointment: Belia Reid WPtel: [address] [place], [place] [phone] ER Follow UP 01/28/2012 Patient Education: Patient [...] sleep 12/26/2011 Appointment: Belia Reid WPtel: [address] [place], [place] [phone]t. confirmed FOLLOW UP 2 Patient Education: Patient Medication Summary Completed 12/26/2011 Appointment: Belia Reid WPtel: [address] [place], [place] [phone] [place] FOLLOW UP 11/14/2011 Patient Education: Patient Medication Summary Completed 11/14/2011 Appointment: Belia Reid WPtel: [address] [place], [place] [phone] 09/12/2011 Patient Education: Patient Medication Summary Completed 09/12/2011 Visit Plan: Supportive care Decrease Liseth catalino to 50mg q HS Decrease AM dose of Valium to 5mg q HS Use Endocet sparingly 08/15/2011 Appointment: Belia Reid WPtel: [address] [place] [phone] ER Follow UP 08/15/2011 Patient Education: Patient Medication Summary Completed 08/15/2011 Appointment: Belia Reid WPtel: [address] [place] [phone] [place] Spoke directly to patient yesterday and confirmed the appoin tment. cn ACUTE ILLNESS 08/09/2011 Patient Education: Patient Medication Summary Completed 08/09/2011 Appointment: Belia Reid WPtel: [address] [place], [place] [phone] Hospital Follow Up 07/03/2011 Patient Education: Patient Medication Summary Completed 07/03/2011 Appointment: Belia Reid WPtel: [address] [place], [place] [phone] FOLLOW UP 06/04/2011 Patient Education: Patient Medication Summary Completed 06/04/2011 Visit Plan: Pt. wants "allergy shot" but in fact wants steroid shot. Will take a break from "generic Zyrtec they are getting from [facility]" and try Singulair for 2 weeks. 05/03/2011 Appointment: Iraida Jones WPtel: [address] [place] [address] ACUTE ILLNESS 05/03/2011 Patient Education: Patient Medication Summary Completed 05/03/2011 Visit Plan: Neurontin 400mg q HS for 1we ek then 800mg q HS Decrease requip to 1mg q HS for 2wks then stop Fwup 2mos 04/05/2011 Appointment: Belia Reid WPtel: [address] [place] [phone] FOLLOW UP 04/05/2011 Patient Education: Patient Medication Summary Completed 04/05/2011 Visit Plan: Trial of neurontin in 2wks C ontinue current meds for stomach Pt has procedure with Dr. Ortiz next week for stone removal 03/08/2011 Appointment: Belia Reid WPtel: [address] [place] [phone] Hospital Follow Up 03/08/2011 Patient Education: Patient Medication Summary Completed 03/08/2011 Appointment: Belia Reid WPtel: [address] [place] [phone] FOLLOW UP 02/19/2011 Visit Plan: reports increased [...] with Flagyl 01/24/2011 Appointment: Iraida Jones WPtel: [address] [place] [address] ACUTE ILLNESS 01/24/2011 Patient Education: Patient Medication Summary Completed 01/24/2011 Appointment: Belia Reid WPtel: [address] [place] [address] [place] FOLLOW UP 01/02/2011 Patient Education: Patient Medication Summary Completed 01/02/2011 Appointment: Belia Reid WPtel: [address] [place] [address] FOLLOW UP 12/12/2010 Appointment: Belia Reid WPtel: [address] [place] [address] ACUTE ILLNESS 12/07/2010 Patient Education: Patient Medication Summary Completed 12/07/2010 Visit Plan: Increase Buspar to 10mg po B ID 11/16/2010 Appointment: Belia Reid WPtel: [address] [place] [address] [place] FOLLOW UP 11/16/2010 Patient Education: Patient Medication Summary Completed 11/16/2010 Appointment: Iraida Jones WPtel: [address] [place] [address] ER Follow UP 11/02/2010 Patient Education: Patient Medication Summary Completed 11/02/2010 Visit Plan: Depo-Medrol/Kenalog given fo r allergies Add BuSpar for anxiety Oxycodone one p.o. q.i.d. for number 120 refilled 10/18/2010 Appointment: Belia Reid WPtel: [address] [place] [address] [place] FOLLOW UP 10/18/2010 Patient Education: Patient Medication Summary Completed 10/18/2010 Visit Plan: Continue current meds Discus sed epidurals for back vs PT--will proceed with epidurals to thoracolumbar region to see if helps with pain 09/19/2010 Appointment: Belia Reid WPtel: [address] [place] [address] FOLLOW UP 09/19/2010 Patient Education: Patient Medication Summary Completed 09/19/2010 Visit Plan: DC MS contin Check CT scan t horacic spine Fwup pending above results 09/06/2010 Appointment: Belia Reid WPtel: [address] [place] [address] FOLLOW UP 09/06/2010 Patient Education: Patient Medication Summary Completed 09/06/2010 Visit Plan: Continue current meds Restar t MS contin 15mg po BID and use oxycodone prn Use daily senokot-s 2 po BID 08/10/2010 Appointment: Belia Reid WPtel: [address] [place] [address] FOLLOW UP 08/10/2010 Patient Education: Patient Medication Summary Completed 08/10/2010 Visit Plan: Depomedrol/Kenalog given Pt sees ENT later this month Cont current meds Mammo scheduled 05/11/2010 Appointment: Belia Reid WPtel: [address] [place] [address] FOLLOW UP 05/11/2010 Patient Education: Patient Medication Summary Completed 05/11/2010 Appointment: Belia Reid WPtel: [address] [place], [place] [phone] [place] [address] 05/04/2010 Patient Education: Patient Medication Summary Completed 05/04/2010 Visit Plan: Pt sent to lab for UA 04/28/2010 Appointment: Belia Reid WPtel: [address] [place] [address] 04/28/2010 Patient Education: Patient Medication Summary Completed 04/28/2010 Visit Plan: Check CT angiogram of chest Restart Advair Use proair prn Cont current meds Fwup with Card as schedulec 04/06/2010 Appointment: Belia Reid WPtel: [address] [place], [place] [phone] [place] [address] Follow Up 04/06/2010 Patient Education: Patient Medication Summary Completed 04/06/2010 Visit Plan: Paperwork filled out for pow erchair Depomedrol/kenalog given Pt sees ENT in 2wks to assess nasal obstruction problems 02/09/2010 Appointment: Belia Reidtel: [address] [place], [place] [phone] 02/09/2010 Patient Education: Patient Medication Summary Completed 02/09/2010 Visit Plan: Change Elavil to Trazadone 1 50mg q HS Diflucan and nystatin for tinea cruris 01/05/2010 Appointment: Belia Reid WPtel: [address] [place] [address] FOLLOW UP 01/05/2010 Patient Education: Patient Medication Summary Completed 01/05/2010 Appointment: Belia Reid WPtel: [address] [place] [address] FOLLOW UP 12/07/2009 Patient Education: Patient Medication Summary Completed 12/07/2009 Appointment: Belia Reidtel: [address] [place] [address] FOLLOW UP 11/22/2009 Visit Plan: Cont current meds and await MRI results from Dr. Meadows's office and his final recommendations Will need to follow-up at later date on deviated septum 11/08/2009 Appointment: Belia Reid WPtel: [address] [place], [place] [phone] [place] FOLLOW UP 11/08/2009 Patient Education: Patient Medication Summary Completed 11/08/2009 Visit Plan: Cont PT/OT See Neurosurgery Cont Tortoise shell brace 10/24/2009 Appointment: Belia Reid WPtel: [address] [place], [place] [phone] FOLLOW UP 10/24/2009 Patient Education: Patient Medication Summary Completed 10/24/2009 Appointment: Belia Reid WPtel: [address] [facility] Hospital Follow Up 10/17/2009 Appointment: Belia Reid WPtel: [address] [place], [place] [phone] ACUTE ILLNESS 07/25/2009 Patient Education: Patient Medication Summary Completed 07/25/2009 Appointment: Belia Reid WPtel: [address] [place], [place] [phone] 05/26/2009 Patient Education: Patient Medication Summary Completed 05/26/2009 Referral: Chino Balderas WPtel: [address] [facility] [place] Referral Initiated Referral: Merry Vale WPtel: [facility] [id number] [address] Vale will review referral and book appointment Completed Referral: Francisco Javier Yoder WPtel: [address] Patient needs EGD insurance will not inc rease a medication unless this procedure results show a need Completed Referral: Francisco Javier Yoder WPtel: [address] [id number] [place] Referral Historical Reference Referral: Francisco Javier Yoder WPtel: [address] [place] [address] [place] Referral Initiated Instructions Comment . Xrays [...] last date of carotid doppler from her director of financial planning and update if needed . Long discussion [...] from "generic Zyrtec they are getting from [facility]" and try Singulair for 2 weeks. . [...]
[2019-06-24 16:23] LABS: ALANINE AMINOTRANSFERASE 25 U/L (0-55); MAGNESIUM 1.7 MG/DL (1.6-2.4)
[2019-06-24 16:28] LABS: FIBRIN DEGRADATION PRODUCTS 0.64 UG/ML (0.00-0.49); INR 0.9 (0.8-1.4)
[2019-06-24] MEDS ORDERED: IOHEXOL 350 MG/ML 100 ML (OMNIPAQUE 350) VIAL IV ONE (16:30)
[2019-06-24] MEDS ORDERED: HOLD METFORMIN - RECEIVED CONTRAST 20 ML VIAL IV SCH (16:30)
[2019-06-24] MEDS ORDERED: NS 100 ML (IVPB) BAG IV ONE (16:30)
--- NOTE | 2019-06-24 17:07 | Diagnostic Imaging Report ---
PROCEDURE: CT angiography of the chest with contrast. TECHNIQUE: Multiple contiguous axial images were obtained through the chest after uneventful bolus administration of intravenous contrast. 3D reconstructed CTA MIP acquisitions were also performed. Auto Exposure Controls were utilized during the CT exam to meet ALARA standards for radiation dose reduction. DATE: June 24, 2019. COMPARISON: Chest radiograph June 24, 2019. CT chest May 13, 2019. INDICATION: 74-year-old female, shortness of breath. FINDINGS: There is respiratory motion artifact. There is no identified pulmonary nodule. There is no lung mass. There is mild dependent atelectasis in the right and left lower lobes. There is no additional identified focal airspace consolidation. There is no pneumothorax. There is no pleural effusion. There are limitations for evaluation of subsegmental pulmonary emboli given the degree of respiratory motion artifact. There is no identified central or segmental pulmonary embolus. The main pulmonary artery is normal in caliber. The heart is not enlarged. There is no pericardial effusion. There is an AP window lymph node on axial image 50, measuring 9 mm in short axis. There is a right hilar lymph node on axial image 59, measuring 14 mm in short axis. There is no identified abnormally enlarged axillary lymph node. The patient is status post cholecystectomy. There is a small accessory splenule. Additional limited evaluation of the imaged portions of the upper abdomen is unremarkable. There are kyphoplasty changes of T12. There is no acute bony abnormality. IMPRESSION: CT chest: 1. No identified central or segmental pulmonary embolus. 2. No identified acute cardiopulmonary abnormality. 3. Prominent right hilar and mildly prominent AP window lymph node of uncertain exact etiology or significance. Dictated by: Dictated on workstation # [id number]
[2019-06-24 18:18] LABS: ABG BASE EXCESS 0.6 MMOL/L (-2.5-2.5); ABG OXYGEN SATURATION 96 % (94-100); ABG PCO2 32 MMHG (35-45); ABG PH 7.48 (7.37-7.43); ABG PO2 75 MMHG (79-93); ABG TCO2 24.7 MMOL/L (21.0-31.0)
[2019-06-24 18:19] LABS: ALLENS TEST YES-POS; INSPIRED O2 RA; PATIENT TEMP 37.4; VENTILATOR NO
[2019-06-24 18:54] LABS: BILIRUBIN,URINE NEGATIVE (NEGATIVE); CLARITY,URINE CLEAR; COLOR,URINE YELLOW; GLUCOSE, URINE (UA) NEGATIVE (NEGATIVE); KETONES,URINE 1+ (NEGATIVE); LEUKOCYTE ESTERASE ,URINE 1+ (NEGATIVE); NITRITE,URINE NEGATIVE (NEGATIVE); PROTEIN,URINE NEGATIVE (NEGATIVE)
[2019-06-24] MEDS ORDERED: cefTRIAXone FOR IV USE 1,000 MG in WATER (STERILE) FOR INJECTION 10 ML IV ONE (19:15)
[2019-06-24 19:20] LABS: AMORPHOUS SEDIMENT,UR FEW AMOR URATES /LPF; BACTERIA,URINE TRACE /HPF
[2019-06-24 19:28] LABS: AMPHETAMINE SCREEN, URINE NEGATIVE (NEGATIVE); BARBITURATE SCREEN URINE NEGATIVE (NEGATIVE); BENZODIAZEPINES SCREEN URINE POSITIVE (NEGATIVE); CANNABINOID SCREEN, URINE NEGATIVE (NEGATIVE); COCAINE SCREEN URINE NEGATIVE (NEGATIVE); METHADONE STAT NEGATIVE (NEGATIVE); METHAMPHETAMINE SCREEN URINE S NEGATIVE (NEGATIVE); OPIATE SCREEN URINE NEGATIVE (NEGATIVE); OXYCODONE STAT NEGATIVE (NEGATIVE); PROPOXYPHENE STAT NEGATIVE (NEGATIVE); TRICYCLIC ANTIDEPRESSANTS SCRE NEGATIVE (NEGATIVE)
[2019-06-24] MEDS ORDERED: cefTRIAXone 1,000 MG IV (ROCEPHIN) VIAL ONE (19:58)
[2019-06-24] MEDS ORDERED: WATER (STERILE) FOR INJECTION 0 ML ONE (20:02)
[2019-06-24] MEDS ORDERED: WATER (STERILE) FOR INJECTION 10 ML ONE (20:03)
[2019-06-24] MEDS ORDERED: NS W/KCL 20 MEQ/L 1,000 ML IV ONE (20:33)
--- NOTE | 2019-06-24 20:36 | NUR ---
BRAYDON ARBOLDEA admitted to room 433-1, with an admitting diagnosis of acute resp distress, uti,sepsis, on 06/24/19 from ed via wheelchair, accompanied by staff.BRAYDON ARBOLEDA introduced to surroundings, call light, bed controls, phone, TV, temperature control, lights, meal times, smoking policy, visitor policy, side rail policy, bathrooms and showers. Patient Rights given to patient in the handbook. BRAYDON ARBOLEDA verbalizes understanding that [facility] is not responsible for the loss or damage to any personal effects or valuables that are kept in the patients posession during their hospitalization. BRAYDON ARBOLEDA verbalizes understanding of Interdisciplinary Patient Education. Patient and/or family were informed about the Rapid Response Team and its purpose.
[2019-06-24 20:59] VITALS: BP 131/100
[2019-06-24 21:03] VITALS: BP 147/67
[2019-06-24] MEDS: cefTRIAXone 1,000 MG/SWFI 10 ML IV PUSH IV SCH ×2 (21:44)
[2019-06-24] MEDS: NS W/KCL 20 MEQ/L 1,000 ML IV SCH (21:44)
--- NOTE | 2019-06-24 21:45 | NUR ---
ROCEPHIN GIVEN IN ED.
[2019-06-24] MEDS: LORazepam INJ 2 MG/ML (ATIVAN) VIAL IV PRN (23:53)
[2019-06-25] VITALS (7 sets, daily range): BP systolic 121–157; BP diastolic 62–76
[2019-06-25 03:02] LABS: BASOPHILS # (AUTO) 0.1 10^3/uL (0.0-0.1); BASOPHILS % (AUTO) 1 % (0-10); EOSINOPHILS # (AUTO) 0.2 10^3/uL (0.0-0.3); EOSINOPHILS % (AUTO) 2 % (0-10); HEMATOCRIT 39 % (35-52); HEMOGLOBIN 12.6 G/DL (11.5-16.0); LYMPHOCYTES # (AUTO) 2.7 X 10^3 (1.0-4.0); LYMPHOCYTES % (AUTO) 31 % (12-44); MEAN CORPUSCULAR HEMOGLOBIN 29 PG (25-34); MEAN CORPUSCULAR HGB CONC 33 G/DL (32-36); MEAN CORPUSCULAR VOLUME 88 FL (80-99); MEAN PLATELET VOLUME 9.4 FL (7.4-10.4); MONOCYTES # (AUTO) 0.7 X 10^3 (0.0-1.0); MONOCYTES % (AUTO) 8 % (0-12); NEUTROPHILS # (AUTO) 5.2 X 10^3 (1.8-7.8); NEUTROPHILS % (AUTO) 59 % (42-75); PLATELET COUNT 259 10^3/uL (130-400); RED CELL DISTRIBUTION WIDTH 13.3 % (10.0-14.5); WHITE BLOOD COUNT 8.8 10^3/uL (4.3-11.0)
[2019-06-25] MEDS: NS W/KCL 20 MEQ/L 1,000 ML IV SCH ×4 (03:34→18:25)
[2019-06-25 03:44] LABS: ALBUMIN 3.6 GM/DL (3.2-4.5); CHLORIDE 107 MMOL/L (98-107); POTASSIUM 3.6 MMOL/L (3.6-5.0); SODIUM 139 MMOL/L (135-145)
[2019-06-25 03:45] LABS: CALCIUM 8.6 MG/DL (8.5-10.1)
[2019-06-25 03:46] LABS: TRIGLYCERIDES 182 MG/DL (<150); VLDL CHOLESTEROL 36 MG/DL (5-40)
[2019-06-25 03:47] LABS: GLUCOSE 136 MG/DL (70-105); TOTAL PROTEIN 6.4 GM/DL (6.4-8.2)
[2019-06-25 03:48] LABS: BILIRUBIN,TOTAL 0.3 MG/DL (0.1-1.0); CARBON DIOXIDE 20 MMOL/L (21-32)
[2019-06-25 03:50] LABS: ALKALINE PHOSPHATASE 80 U/L (40-136); CREATININE SERUM 0.74 MG/DL (0.60-1.30); GFR ESTIMATED > 60
[2019-06-25 03:51] LABS: BUN/CREATININE RATIO 8; CHOLESTEROL 166 MG/DL (< 200)
[2019-06-25 03:52] LABS: HDL CHOLESTEROL 34 MG/DL (40-60)
[2019-06-25 03:53] LABS: ALANINE AMINOTRANSFERASE 20 U/L (0-55)
[2019-06-25] MEDS: meTOprolol TARTRATE 50 MG (LOPRESSOR) TAB PO SCH ×2 (07:44→21:52)
[2019-06-25] MEDS: ACETAMINOPHEN 500 MG TAB (TYLENOL) PO PRN ×2 (07:53→21:51)
[2019-06-25] MEDS ORDERED: RT-ALBUTEROL/IPRATROPIUM 3 ML (DUONEB) VIAL INH SCH (09:00)
[2019-06-25] MEDS: ALBUTEROL/IPRATROP (COMBIVENT RESPIMAT) 4 GM INHALER IH SCH ×3 (10:19→18:38)
--- NOTE | 2019-06-25 10:41 | NUR ---
CALLED DR. REVELES'S OFFICE LEFT MESSAGE WITH LOAN BROKER, PT REPORTS PAIN LT GROIN RADIATING DOWN LEG. ALSO DOUBLE CHECKX RAY ORDERED 2 VIEW OR 1, COVID RULE OUT.
[2019-06-25] MEDS: LORazepam INJ 2 MG/ML (ATIVAN) VIAL IV PRN ×2 (11:13→19:43)
[2019-06-25] MEDS ORDERED: DILT240C91 PO (11:59)
[2019-06-25] MEDS ORDERED: GBPN600T PO (11:59)
[2019-06-25] MEDS ORDERED: METO-333 PO (11:59)
[2019-06-25] MEDS ORDERED: MAGN400T39 PO (12:02)
[2019-06-25] MEDS ORDERED: ASPI-983 PO (12:02)
[2019-06-25] MEDS ORDERED: MELA3TAB39 PO (12:02)
[2019-06-25] MEDS ORDERED: DIPH25CA79 PO (12:02)
--- NOTE | 2019-06-25 12:02 | NUR ---
CALLED TO GIVE HIM AN UPDATE ON PT. LEFT MESSAGE FOR HIM. I TOLD HIM TO CALL WITH ANY QUESTIONS/CONCERNS HE MAY HAVE.
[2019-06-25] MEDS ORDERED: INSN1U SQ (12:08)
[2019-06-25] MEDS ORDERED: ONDANSETRON 4 MG/2 ML (SDV) Z0FRAN IVP PRN (12:30)
[2019-06-25] MEDS ORDERED: KETOROLAC 15 MG/ML VIAL IVP ONE (12:30)
[2019-06-25] MEDS ORDERED: PANTOPRAZOLE 40 MG (PROTONIX) TAB PO ONE (12:30)
--- NOTE | 2019-06-25 12:52 | History & Physical ---
History of Present Illness History of Present Illness Reason for visit/HPI This is a 74 year old female who was brought to the emergency room due to left leg pain and respiratory distress. She had been seen the night before in the emergency room for left leg pain and swelling and abdominal pain. She had a thorough workup which only revealed an elevated lactic acidosis which was felt to be due to dehydration so she was given a liter of IVFs and sent home to accom plish a venous doppler of the LLE the next morning. She was also given a shot of lovenox to cover for a DVT and a dose of rocephin to cover for UTI until the doppler and culture results were obtained. However, she was unable to get the venous doppler done the following day and was having worsening shortness of air so she was brought back to the emergency room where once again a thorough workup was done including a negative CT angiogram of the chest, negative cardiac enzymes, etc. Her lactic acid was again found to be elevated but this resolved after a bag of IVFs. However, she continued to have mild tachycardia and increased respiratory rate so it was decided to admit her for further treatment and evaluation. 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 She has a history of SVT so she will be started on cardizem/metopr olol. COVID-19 testing has also been done. Date of Admission Jun 24, 2019 at 19:32 Date Seen by a Provider: Jun 25, 2019 Time Seen by a Provider: 12:27 I consulted on this patient on 06/25/19 12:27 Attending Physician Nannette Reveles DO Admitting Physician Nannette Reveles DO Consult THERESA COOK DO Allergies and Home Medications Allergies Coded Allergies: Penicillins (Unverified Allergy, Severe, Pt has received Cefepime & Ceftriaxone in the past w/o issue, 07/21/18) SWELLING, RASH, ITCHING Sulfa (Sulfonamide Antibiotics) (Verified Allergy, Mild, 07/21/18) RASH aspirin (Verified Adverse Reaction, Mild, ASPIRIN SENSITIVE, 07/21/18) UPSET STOMACH sumatriptan (Verified Adverse Reaction, Mild, PALPITATIONS, 07/21/18) IRRITABLE Home Medications Aspirin 81 Mg Tablet.dr, 81 MG PO 1800, (Reported) Diltiazem HCl 240 Mg Cap.er.24h, 240 MG PO DAILY, (Reported) Diphenhydramine HCl 25 Mg Capsule, 25-50 MG PO Q6H PRN for ITCHING, (Reported) Gabapentin 600 Mg Tablet, 600 MG PO HS, (Reported) Insulin NPH Human Isophane 100 Unit/1 Ml Vial, 20 UNIT SQ BID, (Reported) Ipratropium/Albuterol Sulfate 3 Ml Ampul.neb, 3 ML NEB Q6H PRN for SHORTNESS OF BREATH, (Reported) Magnesium Oxide 400 Mg Tablet, 800 MG PO DAILY, (Reported) TAKES 2 (400MG) TABS Melatonin 3 Mg Tablet, 6 MG PO HS PRN for SLEEP, (Reported) TAKES 2 (3MG) TABS Metoprolol Tartrate 25 Mg Tablet, 25 MG PO BID, (Reported) Omeprazole 40 Mg Capsule.dr, 40 MG PO BID, (Reported) Pramipexole Di-HCl 1 Mg Tablet, 1 MG PO 1700, (Reported) Patient Home Medication List Home Medication List Reviewed: Yes Past Sfcztoi-Yjupzg-Ychfer Hx Past Med/Social Hx: Reviewed Nursing Past Med/Soc Hx Patient Social History Marrital Status: Alcohol Use: Denies Use Recreational Drug Use: No Smoking Status: Never a Smoker 2nd Hand Smoke Exposure: Yes Recent Foreign Travel: No Contact w/other who traveled: No Recent Hopitalizations: No Recent Infectious Disease Expo: No Immunizations Up To Date Tetanus Booster (TDap): Unknown Pediatric: No Date of Pneumonia Vaccine: Apr 04, 2018 Date of Influenza Vaccine: Dec 31, 2018 Seasonal Allergies Seasonal Allergies: Yes Past Medical History Surgeries: Abdominal, Appendectomy, Cardiac, Defibrillator, Eye Surgery, Gallbladder, Hysterectomy, Oophorectomy, Orthopedic, Pacemaker, Tonsillectomy Currently Using CPAP: No Currently Using BIPAP: No Cardiac: Coronary Artery Disease, High Cholesterol, Hypertension, Irregular Heartbeat Neurological: Headaches /Migraines, Neuropathy 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: No Sexually Transmitted Disease: No Female 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 Disorders: Denies Hysterectomy, Menopausal Genitourinary: Kidney Infection, Bladder Infection, Kidney Stones, UTI-Chronic Gastrointestinal: Gastroesophageal Reflux, Diverticulosis, Hemorrhoids, Polyps, C-Diff, Hiatal Hernia, Ulcer, Irritable Bowel Musculoskeletal: Degenerate Disk Disease, Arthritis, Fibromyalgia, Chronic Back Pain, Fractures Endocrine: Diabetes, Insulin dep, Diabetes, Non-Insulin dep HEENT: Cataract Loss of Vision: Denies Hearing Impairment: Denies Psychosocial: Anxiety, Depression Skin/Integumentary: Pruritis History of Blood Disorders: No Adverse Reaction to Blood Lynne: No Family History Alzheimer's disease 19 FATHER Cardiovascular disease 19 FATHER 19 MOTHER Completed stroke 19 MOTHER Hypertension 19 FATHER 19 MOTHER Myocardial infarction 19 FATHER 19 MOTHER No Family History of: Diabetes mellitus PSH: -T12 KYPHOPLASTY -C5-C6 CERVICAL DISCECTOMY WITH FUSION 04/2018 -LAP CORNELIUS FUNDOPLICATION -EGD'S/ESOPHAGEAL DILATIONS/COLONOSCOPIES/POLYPECTOMIES -PACEMAKER/DEFIBRILLATOR -HYSTERECTOMY/BSO -CHOLECYSTECTOMY -APPENDECTOMY -TONSILLECTOMY -OVARIAN CYST SURGERIES X 4 -CYST FROM BACK REMOVED -ENT SURGERY PMH: -CHRONIC NECK PAIN WITH CERVICAL RADICULOPATHY -RESTLESS LEG SYNDROME -CHRONIC BACK PAIN -T12 COMPRESSION WITH KYPHOPLASTY Review of Systems Constitutional: weakness Respiratory: short of breath Cardiovascular: No no symptoms reported, No see HPI, No chest pain, No edema, No Hx of Intervention, No palpitations, No syncope, No vascular heart diseas, No other Gastrointestinal: abdominal pain (RLQ) Genitourinary: dysuria Musculoskeletal: back pain, muscle weakness Skin: No no symptoms reported, No see HPI, No change in color, No change in hair/nails, No dryness, No hx of skin cancer, No lesions, No lumps, No pruritus, No rash, No other Psychiatric/Neurological: Anxiety, Paresthesia (left leg pain), Weakness Physical Exam Vital Signs Vital Signs - First Documented 06/24/19 06/24/19 06/25/19 15:22 20:25 04:00 Temp 37.4 Pulse 121 Resp 18 B/P (MAP) 131/100 (110) Pulse Ox 97 O2 Delivery Room Air O2 Flow Rate 2.00 Capillary Refill : Less Than 3 SecondsLess Than 3 Seconds Height, Weight, BMI Height: 5'4.00" Weight: 215lbs. 0oz. 97.931615ye; 39.21 BMI Method:Stated General Appearance: No Apparent Distress HEENT: Normal ENT Inspection Neck: Supple Respiratory: Lungs Clear Cardiovascular: Regular Rate, Rhythm Gastrointestinal: Normal Bowel Sounds, Soft, Tenderness Rectal: Deferred Back: No CVA Tenderness Extremity: Non Tender, No Calf Tenderness, No Pedal Edema Neurologic/Psychiatric: Alert, Oriented x3 Skin: Warm/Dry Comments Laboratory Tests 06/24/19 15:48: White Blood Count 12.2H, Red Blood Count 4.70, Hemoglobin 13.5, Hematocrit 41, Mean Corpuscular Volume 88, Mean Corpuscular Hemoglobin 29, Mean Corpuscular Hemoglobin Concent 33, Red Cell Distribution Width 13.3, Platelet Count 317, Mean Platelet Volume 9.7, Neutrophils (%) (Auto) 73, Lymphocytes (%) (Auto) 19, Monocytes (%) (Auto) 6, Eosinophils (%) (Auto) 1, Basophils (%) (Auto) 0, Neutrophils # (Auto) 8.9H, Lymphocytes # (Auto) 2.3, Monocytes # (Auto) 0.7, Eosinophils # (Auto) 0.1, Basophils # (Auto) 0.0, Prothrombin Time 13.0, INR Comment 0.9, Activated Partial Thromboplast Time 24, D-Dimer 0.64H, Sodium Level 137, Potassium Level 3.5L, Chloride Level 102, Carbon Dioxide Level 21, Anion Gap 14, Blood Urea Nitrogen 8, Creatinine 0.88, Estimat Glomerular Filtration Rate > 60, BUN/Creatinine Ratio 9, Glucose Level 176H, Lactic Acid Level 3.51*H, Calcium Level 9.5, Corrected Calcium 9.5, Magnesium Level 1.7, Total Bilirubin 0.3, Aspartate Amino Transf (AST/SGOT) 28, Alanine Aminotransferase (ALT/SGPT) 25, Alkaline Phosphatase 98, Lactate Dehydrogenase 238H, Myoglobin 88.3, Troponin I < 0.028, C-Reactive Protein High Sensitivity 1.41H, B-Type Natriuretic Peptide < 10.0, Total Protein 7.2, Albumin 4.0, Procalcitonin 0.04 06/24/19 16:25: Urine Color YELLOW, Urine Clarity CLEAR, Urine pH 6.0, Urine Specific [place] 1.010L, Urine Protein NEGATIVE, Urine Glucose (UA) NEGATIVE, Urine Ketones 1+H, Urine Nitrite NEGATIVE, Urine Bilirubin NEGATIVE, Urine Urobilinogen 0.2, Urine Leukocyte Esterase 1+H, Urine RBC (Auto) NEGATIVE, Urine RBC NONE, Urine WBC 2- 5, Urine Crystals PRESENTH, Urine Amorphous Sediment FEW AURY URATESH, Urine Bacteria TRACE, Urine Casts NONE, Urine Mucus NEGATIVE, Urine Culture Indicated NO, Urine Opiates Screen NEGATIVE, Urine Oxycodone Screen NEGATIVE, Urine Methadone Screen NEGATIVE, Urine Propoxyphene Screen NEGATIVE, Urine Bar biturates Screen NEGATIVE, Ur Tricyclic Antidepressants Screen NEGATIVE, Urine Phencyclidine Screen NEGATIVE, Urine Amphetamines Screen NEGATIVE, Urine Methamphetamines Screen NEGATIVE, Urine Benzodiazepines Screen POSITIVEH, Urine Cocaine Screen NEGATIVE, Urine Cannabinoids Screen NEGATIVE 06/24/19 17:42: Lactic Acid Level 1.64 06/24/19 18:03: Blood Gas Puncture Site LR, Blood Gas Patient Temperature 37.4, Arterial Blood pH 7.48H, Arterial Blood Partial Pressure CO2 32L, Arterial Blood Partial Pressure O2 75L, Arterial Blood HCO3 24, Arterial Blood Total CO2 24.7, Arterial Blood Oxygen Saturation 96, Arterial Blood Base Excess 0.6, Manjit Test YES-POS, Blood Gas Ventilator Setting NO, Blood Gas Inspired Oxygen RA 06/24/19 18:06: Carboxyhemoglobin 3.2H 06/24/19 19:10: Coronavirus (COVID-19)(PCR) Negative 06/24/19 23:25: Troponin I < 0.028 06/25/19 02:45: Troponin I < 0.028, White Blood Count 8.8, Red Blood Count 4.36, Hemoglobin 12.6, Hematocrit 39, Mean Corpuscular Volume 88, Mean Corpuscular Hemoglobin 29, Mean Corpuscular Hemoglobin Concent 33, Red Cell Distribution Width 13.3, Platelet Count 259, Mean Platelet Volume 9.4, Neutrophils (%) (Auto) 59, Lymphocytes (%) (Auto) 31, Monocytes (%) (Auto) 8, Eosinophils (%) (Auto) 2, Basophils (%) (Auto) 1, Neutrophils # (Auto) 5.2, Lymphocytes # (Auto) 2.7, Monocytes # (Auto) 0.7, Eosinophils # (Auto) 0.2, Basophils # (Auto) 0.1, Sodium Level 139, Potassium Level 3.6, Chloride Level 107, Carbon Dioxide Level 20L, Anion Gap 12, Blood Urea Nitrogen 6L, Creatinine 0.74, Estimat Glomerular Filtration Rate > 60, BUN/Creatinine Ratio 8, Glucose Level 136H, Calcium Level 8.6, Corrected Calcium 8.9, Total Bilirubin 0.3, Aspartate Amino Transf (AST/SGOT) 23, Alanine Aminotransferase (ALT/SGPT) 20, Alkaline Phosphatase 80, Total Protein 6.4, Albumin 3.6, Triglycerides Level 182H, Cholesterol Level 166, LDL Cholesterol Direct 123, VLDL Cholesterol 36, HDL Cholesterol 34L Microbiology 06/24/19 Influenza Types A,B Antigen (YOLIE) - Final, Complete Assessment/Plan Assessment and Plan 1. 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 Tachycardia in patient with history of SVT--on diltiazem/metoprolol and HR now normal 3. DM-insulin requiring--start accuchecks with SSI 4. Lactic Acidosis due to dehydration--resolved with IVFs so will decrease IVF rate 5. Left Leg Sciatica--will do trial of toradol to see if helps Admission Diagnosis Admission Status: Observation Clinical Quality Measures DVT/VTE Risk/Contraindication: Risk Factor Score Per Nursin RFS Level Per Nursing on Admit: 4+=Very High NANNETTE REVELES DO Jun 25, 2019 12:52
[2019-06-25] MEDS ORDERED: ESCI10TA PO (13:07)
[2019-06-25] MEDS ORDERED: CHOL500044 PO (13:07)
--- NOTE | 2019-06-25 13:07 | NUR ---
SPOKE WITH THE PT (I CALLED HER ROOM PHONE), WENT THRU THE EXT MED HISTORY AND CALLED HER MAIL ORDER PHARMACIES AND [facility] TO COMPLETE THE MED REC 02-02-2019 LEXAPRO 10MG #90/90DS- PT SAID SHE STILL HAD SOME AT HOME BUT I DID DOCUMENT THE PAST DUE FILL ON THE MED REC 02-16-2019 PRAMIPEXOLE 1MG #90/90DS- SAME ABOVE (STILL HAS AT HOME BUT I DID NOTE THE PAST DUE FILL) NOVOHERNANDEZ N- PT SAID SHE BUYS THIS OTC FROM [employer] GABAPENTIN 600MG- THE DIRECTIONS ARE 1 TAB BID HOWEVER THE PT ONLY TAKES 1 TAB HS PT HAD BEEN TAKING HYDROXYZINE FROM ITCHING AND ANXIETY-HOWEVER HE INSURANCE WAS REQUIRING A PRIOR AUTHORIZATION AND THE PT HAD SWITCHED TO OTC BENADRYL THE PT SAYS SHE DOES HAVE DUONEB AT HOME (SAYS SHE HASNT USED IN YEARS UNTIL THE LAST DAY) BUT CANT REMEMBER WHERE SHE GOT IT FROM- I LEFT THIS OFF THE MED REC SINCE SHE WOULD LIKELY NEED A NEW RX ANYWAY DUE TO THE PRODUCT AND SCRIPT BEING OUTDATED MONTELUKAST AND DIAZEPAM ARE BOTH LISTED ON THE EXT MED HISTORY BUT THE PT SAYS SHE IS NOT TAKING EITHER. OTC MEDS: MELATONIN BENADRYL VIT D MAG OX 400MG PT ALSO LISTED SHE WAS TAKING ASPIRIN 81MG IN THE EVENING BUT SHE HAS AN ALLERGY LISTED- WHEN SHE IS MOVED TO HER NEW ROOM (421) I WILL CHECK WITH HER AGAIN AND UPDATE IF NEEDED
[2019-06-25] MEDS: ENOXAPARIN 40 MG/0.4 ML (LOVENOX) SYR SC SCH (13:40)
[2019-06-25] MEDS: inSUlin ASPART (NovoLOG) 1 UNIT/0.01 ML (CHARGE PER UNIT) SC SCH ×3 (13:41→21:06)
--- NOTE | 2019-06-25 19:36 | NUR ---
DR. REVELES CALLED THIS RN TO INFORM ME THAT PT'S CARBOXY HEMOGLOBIN WAS ELEVATED AND TO INFORM PT AND HER TO CHECK FOR POTENTIAL CARBON MONOXIDE LEAK IN THEIR HOME.
--- NOTE | 2019-06-25 19:39 | NUR ---
THIS RN CALLED PT'S TO INFORM HIM OF PT'S LAB RESULT AND POTENTIAL CARBON MONOXIDE LEAK IN HOME. PT ACKNOWLEDGED INFORMATION AND SAID HE WOULD GET SOMEONE TO CHECK IT OUT SOON HE COULD, PROBABLY WILL BE TOMORROW.
[2019-06-25] MEDS: cefTRIAXone 1,000 MG/SWFI 10 ML IV PUSH IV SCH ×2 (21:52)
--- NOTE | 2019-06-25 21:57 | NUR ---
APPLIED HUMIDIFICATION TO NASAL CANNULA AT PT REQUEST.
[2019-06-26] VITALS (7 sets, daily range): BP systolic 121–187; BP diastolic 72–81
[2019-06-26] MEDS: LORazepam INJ 2 MG/ML (ATIVAN) VIAL IV PRN (03:07)
[2019-06-26] MEDS: KETOROLAC 15 MG/ML VIAL IVP PRN (03:07)
[2019-06-26 05:26] LABS: BASOPHILS # (AUTO) 0.1 10^3/uL (0.0-0.1); BASOPHILS % (AUTO) 1 % (0-10); EOSINOPHILS # (AUTO) 0.4 10^3/uL (0.0-0.3); EOSINOPHILS % (AUTO) 4 % (0-10); HEMATOCRIT 40 % (35-52); HEMOGLOBIN 13.2 G/DL (11.5-16.0); LYMPHOCYTES # (AUTO) 2.5 X 10^3 (1.0-4.0); LYMPHOCYTES % (AUTO) 24 % (12-44); MEAN CORPUSCULAR HEMOGLOBIN 29 PG (25-34); MEAN CORPUSCULAR HGB CONC 33 G/DL (32-36); MEAN CORPUSCULAR VOLUME 89 FL (80-99); MEAN PLATELET VOLUME 10.3 FL (7.4-10.4); MONOCYTES # (AUTO) 0.6 X 10^3 (0.0-1.0); MONOCYTES % (AUTO) 6 % (0-12); NEUTROPHILS # (AUTO) 6.8 X 10^3 (1.8-7.8); NEUTROPHILS % (AUTO) 66 % (42-75); PLATELET COUNT 238 10^3/uL (130-400); RED CELL DISTRIBUTION WIDTH 13.5 % (10.0-14.5); WHITE BLOOD COUNT 10.3 10^3/uL (4.3-11.0)
[2019-06-26] MEDS: inSUlin ASPART (NovoLOG) 1 UNIT/0.01 ML (CHARGE PER UNIT) SC SCH ×5 (05:36→20:37)
[2019-06-26 05:39] LABS: ALANINE AMINOTRANSFERASE 19 U/L (0-55); ALBUMIN 3.4 GM/DL (3.2-4.5); ALKALINE PHOSPHATASE 76 U/L (40-136); BILIRUBIN,TOTAL 0.3 MG/DL (0.1-1.0); BUN/CREATININE RATIO 16; CALCIUM 8.6 MG/DL (8.5-10.1); CARBON DIOXIDE 19 MMOL/L (21-32); CHLORIDE 108 MMOL/L (98-107); CREATININE SERUM 0.82 MG/DL (0.60-1.30); GFR ESTIMATED > 60; GLUCOSE 151 MG/DL (70-105); SODIUM 136 MMOL/L (135-145)
[2019-06-26] MEDS: NS W/KCL 20 MEQ/L 1,000 ML IV SCH ×3 (06:39→22:52)
[2019-06-26] MEDS: ALBUTEROL/IPRATROP (COMBIVENT RESPIMAT) 4 GM INHALER IH SCH ×2 (07:10→10:51)
[2019-06-26] MEDS: meTOprolol TARTRATE 50 MG (LOPRESSOR) TAB PO SCH ×2 (09:27→20:33)
[2019-06-26] MEDS: PANTOPRAZOLE 40 MG (PROTONIX) TAB PO SCH (09:28)
[2019-06-26] MEDS ORDERED: ALBUTEROL/IPRATROP (COMBIVENT RESPIMAT) 4 GM INHALER IH PRN (10:15)
[2019-06-26] MEDS ORDERED: LORATADINE (CLARITIN) 10 MG TAB PO ONE (11:30)
[2019-06-26] MEDS: ENOXAPARIN 40 MG/0.4 ML (LOVENOX) SYR SC SCH (11:59)
--- NOTE | 2019-06-26 11:59 | Progress Note ---
Subjective Date Seen by a Provider: Jun 26, 2019 Time Seen by a Provider: 11:00 Subjective/Events-last exam Fwup Psychogenic Stridor/Laryngospasm, Elevated Carboxyhemoglobin, Tachycardia, Left leg Sciatica, Hypertension, DM II. Sitting up in chair with stridor. Her is contacting their landlord today about testing for carbon monoxide. Focused Exam Lactate Level 06/24/19 15:48: Lactic Acid Level 3.51*H 06/24/19 17:42: Lactic Acid Level 1.64 Time of Focused Exam: 19:10 Objective Exam Vital Signs Date Time Temp Pulse Resp B/P (MAP) Pulse Ox O2 Delivery O2 Flow Rate FiO2 06/26/19 09:52 36.5 63 99 28 06/26/19 08:13 36.5 65 24 137/72 (93) 97 Nasal Cannula 2.50 06/26/19 08:00 Nasal Cannula 2.50 06/26/19 07:10 98 Nasal Cannula 2.00 06/26/19 06:42 63 06/26/19 04:00 36.4 63 22 150/78 (102) 97 Nasal Cannula 2.50 06/26/19 01:00 63 06/25/19 23:48 36.4 64 26 121/74 (90) 96 Nasal Cannula 2.50 06/25/19 20:30 36.7 85 24 152/76 (101) 96 Nasal Cannula 2.50 06/25/19 20:00 Nasal Cannula 2.50 06/25/19 19:00 90 06/25/19 18:39 95 06/25/19 16:25 36.5 69 20 144/70 (94) 95 Nasal Cannula 2.50 06/25/19 13:34 95 Nasal Cannula 2.00 06/25/19 12:18 69 06/25/19 12:00 36.2 64 18 142/62 (88) 94 Nasal Cannula 2.50 I & O 06/26/19 07:00 Intake Total 5290 ml Balance 5290 ml Capillary Refill : Less Than 3 SecondsLess Than 3 Seconds General Appearance: Mild Distress (stridor) Neck: Supple Respiratory: Lungs Clear Cardiovascular: Regular Rate, Rhythm Gastrointestinal: normal bowel sounds, non tender, soft Extremity: Non Tender, No Calf Tenderness, No Pedal Edema Neurologic/Psychiatric: Alert, Oriented x3 Skin: Warm/Dry Results Lab Laboratory Tests 06/25/19 12:49: Glucometer 198H 06/25/19 15:41: Glucometer 231H 06/25/19 20:12: Glucometer 135H 06/26/19 04:58: Glucometer 134H 06/26/19 05:00: White Blood Count 10.3, Red Blood Count 4.53, Hemoglobin 13.2, Hematocrit 40, Mean Corpuscular Volume 89, Mean Corpuscular Hemoglobin 29, Mean Corpuscular Hemoglobin Concent 33, Red Cell Distribution Width 13.5, Platelet Count 238, Mean Platelet Volume 10.3, Neutrophils (%) (Auto) 66, Lymphocytes (%) (Auto) 24, Monocytes (%) (Auto) 6, Eosinophils (%) (Auto) 4, Basophils (%) (Auto) 1, Neutrophils # (Auto) 6.8, Lymphocytes # (Auto) 2.5, Monocytes # (Auto) 0.6, Eosinophils # (Auto) 0.4H, Basophils # (Auto) 0.1, Sodium Level 136, Potassium Level 4.0, Chloride Level 108H, Carbon Dioxide Level 19L, Anion Gap 9, Blood Urea Nitrogen 13, Creatinine 0.82, Estimat Glomerular Filtration Rate > 60, BUN/Creatinine Ratio 16, Glucose Level 151H, Calcium Level 8.6, Corrected Calcium 9.1, Total Bilirubin 0.3, Aspartate Amino Transf (AST/SGOT) 21, Alanine Aminotransferase (ALT/SGPT) 19, Alkaline Phosphatase 76, Total Protein 6.0L, Albumin 3.4 06/26/19 11:18: Glucometer 213H 06/26/19 11:35: Microbiology 06/24/19 Influenza Types A,B Antigen (YOLIE) - Final, Complete 06/24/19 Blood Culture - Preliminary, Resulted No growth Assessment/Plan Assessment/Plan Assess & Plan/Chief Complaint 1. Psychogenic Stridor/Laryngospasm--change IV Ativan to routine dosing q6hrs, Check Soft Tissue Neck X-ray 2. Elevated Carboxyhemoglobin-- calling landlord about carbon monoxide testing, will repeat level 3. Tachycardia/Hypertension---improved on Cardizem/Metoprolol 4. Diabetes mellitus--on levemir with SSI 5. DC Rocephin as no evidence of infectious process Clinical Quality Measures Admission Status Admission Dx 1. 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 Tachycardia in patient with history of SVT--on diltiazem/metoprolol and HR now normal 3. DM-insulin requiring--start accuchecks with SSI 4. Lactic Acidosis due to dehydration--resolved with IVFs so will decrease IVF rate 5. Left Leg Sciatica--will do trial of toradol to see if helps DVT/VTE Risk/Contraindication: Risk Factor Score Per Nursin RFS Level Per Nursing on Admit: 4+=Very High NANNETTE REVELES DO Jun 26, 2019 11:59
[2019-06-26] MEDS: LORazepam INJ 2 MG/ML (ATIVAN) VIAL IV SCH ×4 (12:00→23:20)
--- NOTE | 2019-06-26 12:04 | Diagnostic Imaging Report ---
INDICATION: Hoarseness. FINDINGS: 2 view. The epiglottis is normal. Prevertebral soft tissues are not widened. The adenoids are not enlarged. No radiopaque abnormalities in the airway. Cervical fusion noted C5-C7. Hypertrophic bony changes noted along the inferior endplate of C4 just above the fused level. IMPRESSION: Degenerative changes C4-C5 disc. Mild osteophyte formation. No soft tissue abnormalities noted. Dictated by: Dictated on workstation # [id number]
--- NOTE | 2019-06-26 13:38 | NUR ---
"RD ASSESSMENT PMHx: CAD; hypercholesterolemia; HTN; chronic UTI; GERD; diverticulosis; c-diff; hiatal hernia; DM; SVT PT INTERACTION: Pt was awake and pleasant during nutrition assessment. Pt states current appetite is so-so and has been for awhile. Note avg PO intake 100% x2meal, per chart review. Pt states following a regular diet at home, and has some issues with chewing/swallowing food whenever she is breathing heavy. Pt states some recent issues with nausea and constipation. Note last BM was 06/24 and pt not currently on bowel regimen per chart review. Pt states unsure of recent wt changes. Note recent 8# wt loss x3mon, per chart review. Pt states current DM management is pretty good. Note recent HbA1c of 7.8 on 04/16/19, per chart review. ABNORMAL NUTRITION-RELATED LAB VALUES LOW: Pro 6.0 HIGH: Cl 108; glu 151 Est. kcal needs: 6327-2714 kcal | 15-18 kcal/kg Est. Pro needs: 80-100 g Pro | 0.8-1.0 g Pro/kg PES STATEMENT: Given current PO intake, no nutrition diagnosis at this time (NO-1.1) INTERVENTION: Continue with current diet order of CHO 60g/m 3snack diet. Discussed current DM management and CHO counting and smartphone applications to assist in DM control. Pt verbalized understanding (I used to watch them better before, I need to do it again). Discussed how smartphone apps could assist with that when calculating CHO content for meals. Discussed sodium content in foods and options to lower sodium in canned foods (rinsing them off in a colander before putting them in a pot and adding water). Will continue to follow and reassess as pt needs, intake, and status change. MONITOR/EVALUATE: PO Intake; Plan of Care; Hydration Status; Weight Status; Lab Values Yuridia Mo, MS, RD, LD"
--- NOTE | 2019-06-26 15:26 | NUR ---
CM/SS visited with patient to assess for needs. The patient was willing to talk with this ss. The patient plans to return home upon discharge. 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 CARLITA/SS discussed with the patient her experiences. 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 The patient verbalized that she has a good support system with friends, family, and her . The patient did not have any questions for this ss at this time. No other needs. Will continue to follow.
[2019-06-26] MEDS: PRAMIPEXOLE 0.5 MG TAB (MIRAPEX) PO SCH (20:32)
[2019-06-26] MEDS: MONTELUKAST 10 MG (SINGULAIR) TAB PO SCH (20:33)
[2019-06-27 04:35] VITALS: BP 153/81
[2019-06-27] MEDS: LORazepam INJ 2 MG/ML (ATIVAN) VIAL IV SCH ×4 (06:18→23:52)
[2019-06-27] MEDS: inSUlin ASPART (NovoLOG) 1 UNIT/0.01 ML (CHARGE PER UNIT) SC SCH ×4 (06:20→20:45)
[2019-06-27 08:00] VITALS: BP 146/84
[2019-06-27] MEDS: MAGNESIUM OXIDE (MAG-OX)400 MG TAB PO SCH (08:55)
[2019-06-27] MEDS: meTOprolol TARTRATE 50 MG (LOPRESSOR) TAB PO SCH ×2 (08:55→20:41)
[2019-06-27] MEDS: PANTOPRAZOLE 40 MG (PROTONIX) TAB PO SCH (08:55)
[2019-06-27] MEDS: LORATADINE (CLARITIN) 10 MG TAB PO SCH (08:55)
[2019-06-27] MEDS: KETOROLAC 15 MG/ML VIAL IVP PRN (08:56)
[2019-06-27 11:58] VITALS: BP 154/90
[2019-06-27] MEDS: ENOXAPARIN 40 MG/0.4 ML (LOVENOX) SYR SC SCH (12:07)
--- NOTE | 2019-06-27 12:24 | Progress Note - Hospitalist ---
Subjective HPI/CC On Admission Date Seen by Provider: Jun 27, 2019 Time Seen by Provider: 12:20 Subjective/Events-last exam Pt reports feeling better but still having stridor. Feels SOB when walking to bathroom. Focused Exam Lactate Level 06/24/19 15:48: Lactic Acid Level 3.51*H 06/24/19 17:42: Lactic Acid Level 1.64 Time of Focused Exam: 19:10 Objective Exam Vital Signs Vital Signs Date Time Temp Pulse Resp B/P (MAP) Pulse Ox O2 Delivery O2 Flow Rate FiO2 06/27/19 11:58 36.2 60 20 154/90 (111) 96 Nasal Cannula 2.50 06/26/19 09:52 28 Capillary Refill : Less Than 3 SecondsLess Than 3 Seconds General Appearance: No Apparent Distress, Chronically ill, Obese, Other Respiratory: Lungs Clear, No Accessory Muscle Use, Other (stridor noted intermittently) Cardiovascular: Regular Rate, Rhythm, No Murmur Neurologic/Psychiatric: Alert, Oriented x3 Results/Procedures Lab Patient resulted labs reviewed. Assessment/Plan Assessment and Plan Assess & Plan/Chief Complaint 1. Acute Respiratory Distress-- related to her history of psychogenic stridor, will continue Ativan IV prn as is helping, cony is testing hose for carbon monoxide 2. Tachycardia now resolved on home meds 3. DM-insulin requiring--blood sugars well control, cont current regimen 4. Lactic Acidosis- resolved 5. Left Leg Sciatica--continue toradol Clinical Quality Measures DVT/VTE Risk/Contraindication: Risk Factor Score Per Nursin RFS Level Per Nursing on Admit: 4+=Very High DARYL SHIRLEY MD Jun 27, 2019 12:24
[2019-06-27 16:07] VITALS: BP 127/76
[2019-06-27 20:22] VITALS: BP 134/76
[2019-06-27] MEDS: PRAMIPEXOLE 0.5 MG TAB (MIRAPEX) PO SCH (20:40)
[2019-06-27] MEDS: MONTELUKAST 10 MG (SINGULAIR) TAB PO SCH (20:41)
[2019-06-28 00:14] VITALS: BP 140/79
[2019-06-28 04:00] VITALS: BP 136/77
[2019-06-28] MEDS: inSUlin ASPART (NovoLOG) 1 UNIT/0.01 ML (CHARGE PER UNIT) SC SCH ×4 (06:07→21:14)
[2019-06-28] MEDS: LORazepam INJ 2 MG/ML (ATIVAN) VIAL IV SCH ×4 (06:31→23:33)
[2019-06-28 08:00] VITALS: BP 141/76
[2019-06-28] MEDS: PANTOPRAZOLE 40 MG (PROTONIX) TAB PO SCH (08:38)
[2019-06-28] MEDS: MAGNESIUM OXIDE (MAG-OX)400 MG TAB PO SCH (08:38)
[2019-06-28] MEDS: meTOprolol TARTRATE 50 MG (LOPRESSOR) TAB PO SCH ×2 (08:39→17:50)
[2019-06-28] MEDS: LORATADINE (CLARITIN) 10 MG TAB PO SCH (08:39)
[2019-06-28] MEDS: KETOROLAC 15 MG/ML VIAL IVP PRN ×2 (08:39→21:13)
[2019-06-28] MEDS: ENOXAPARIN 40 MG/0.4 ML (LOVENOX) SYR SC SCH (11:38)
[2019-06-28 12:00] VITALS: BP 122/58
--- NOTE | 2019-06-28 12:24 | Progress Note - Hospitalist ---
Subjective HPI/CC On Admission Date Seen by Provider: Jun 28, 2019 Time Seen by Provider: 12:22 Subjective/Events-last exam Pt reports doing better but still very SOB with ambulation. States her stridor was very bad taking a shower and getting from the bed to the chair. Focused Exam Time of Focused Exam: 19:10 Objective Exam Vital Signs Vital Signs Date Time Temp Pulse Resp B/P (MAP) Pulse Ox O2 Delivery O2 Flow Rate FiO2 06/28/19 12:00 36.4 60 18 122/58 (79) 95 Nasal Cannula 2.00 06/26/19 09:52 28 Capillary Refill : Less Than 3 SecondsLess Than 3 Seconds General Appearance: No Apparent Distress, WD/WN, Obese Respiratory: Lungs Clear, No Respiratory Distress; No Stridor Cardiovascular: Regular Rate, Rhythm, No Murmur Neurologic/Psychiatric: Alert, Oriented x3 Results/Procedures Lab Patient resulted labs reviewed. Assessment/Plan Assessment and Plan Assess & Plan/Chief Complaint 1. Acute Respiratory Distress-- related to her history of psychogenic stridor, will continue Ativan IV prn as is helping, cony is testing home for carbon monoxide but has not heard back yet 2. Tachycardia now resolved on home meds 3. DM-insulin requiring--blood sugars well control, cont current regimen 4. Lactic Acidosis- resolved 5. Left Leg Sciatica--continue toradol Clinical Quality Measures DVT/VTE Risk/Contraindication: Risk Factor Score Per Nursin RFS Level Per Nursing on Admit: 4+=Very High DARYL SHIRLEY MD Jun 28, 2019 12:24
--- NOTE | 2019-06-28 16:05 | NUR ---
TOOK OVER CARE OF PT AND RECEIVED REPORT FROM GLENN CHENEY
[2019-06-28 16:50] VITALS: BP 186/81
[2019-06-28 19:09] VITALS: BP 152/97
[2019-06-28] MEDS: MONTELUKAST 10 MG (SINGULAIR) TAB PO SCH (21:13)
[2019-06-28] MEDS: PRAMIPEXOLE 0.5 MG TAB (MIRAPEX) PO SCH (21:13)
[2019-06-29] VITALS: BP 141/70
[2019-06-29 04:00] VITALS: BP 120/66
[2019-06-29] MEDS: inSUlin ASPART (NovoLOG) 1 UNIT/0.01 ML (CHARGE PER UNIT) SC SCH ×3 (06:00→16:24)
[2019-06-29] MEDS: LORazepam INJ 2 MG/ML (ATIVAN) VIAL IV SCH ×2 (06:32→11:17)
[2019-06-29 08:00] VITALS: BP 133/74
[2019-06-29] MEDS: MAGNESIUM OXIDE (MAG-OX)400 MG TAB PO SCH (08:36)
[2019-06-29] MEDS: PANTOPRAZOLE 40 MG (PROTONIX) TAB PO SCH (08:36)
[2019-06-29] MEDS: LORATADINE (CLARITIN) 10 MG TAB PO SCH (08:36)
[2019-06-29] MEDS: meTOprolol TARTRATE 50 MG (LOPRESSOR) TAB PO SCH (08:36)
[2019-06-29] MEDS: ENOXAPARIN 40 MG/0.4 ML (LOVENOX) SYR SC SCH (11:55)
[2019-06-29 12:00] VITALS: BP 137/75
--- NOTE | 2019-06-29 12:40 | NUR ---
SPO2 DROPPED TO 87% ON ROOM AIR WITH EXERTION. PLACED PT ON O2 @ 2 LPM. WALKED PT ON 2LPM, SPO2 STAYED ABOVE 90%. Addendum: 06/29/19 at 1325 by MAVIS XIAO RT Amended: Links added.
[2019-06-29] MEDS ORDERED: LORA-404 PO (12:47)
[2019-06-29] MEDS ORDERED: LORA10TA7 PO (12:47)
[2019-06-29] MEDS ORDERED: MONT10TA26 PO (12:47)
[2019-06-29] MEDS ORDERED: INSN1U SQ (12:47)
[2019-06-29] MEDS ORDERED: METO50TA15 PO (12:47)
[2019-06-29 15:45] VITALS: BP 115/64
--- NOTE | 2019-06-29 15:54 | NUR ---
CARLITA/SS visited with the patient for discharge needs. The patient had an oxygen study done stating that she needed 2 L on exertion. CARLITA/SS visited with the patient about where she gets her oxygen currently. She verbalized that she uses [facility] in [place], [place]. CM/SS contacted them and spoke with Amarilis. CM/SS verbalized that a script and qualifiers will be sent via fax ([phone]) when available. Addendum: 06/30/19 at 1354 by ALMA DELIA GAMEZ CARLITA/SS contacted the physician 06/29 for a oxygen script. The physician put it in. CARLITA/SS faxed the script and qualifiers to agency. No other needs.
[2019-06-29 16:31] VITALS: BP 115/64
--- NOTE | 2019-07-01 08:44 | Physician Query Clarification ---
PQ-Further Specificity Admission/Discharge Admission Date: Jun 26, 2019 at 12:05 Discharge Date: Jun 29, 2019 at 16:30 The medical record reflects the following clinical scenario: History/Risk Factors: psychogenic stridor w/laryngospasm, acute respiratory distress, elevated carboxyhemoglobin Clinical Findings: carboxyhemoglobin 3.2, 3.6, PH 7.48, Pco2 32, Po2 75, P 121, Treatment: 2L NC, IV Ativan, IVF, IV Ceftriaxone Question: Can you further specify the underlying cause of the laryngospasm, acute respiratory distress and the elevated carboxyhemoglobin per the clinical indicators above? Please document a response in the Progress Notes or Discharge Summary. 1. carbon monoxide toxicity 2. etiology of the laryngospasm, acute respiratory distree and elevated carboxyhemoglobin undetermined 3. Other, with explanation of the clinical findings. 4. Clinically undetermined, no explanation for the clinical findings. PHYSICIAN RESPONSE Can you specify per above: Other, explanation/clinical finding Explanation/Clinical Findings Wrong Physician. Please remember a lack of response to the above will prompt a phone page by CDI/Coding staff. In responding to this query, please exercise your independent professional judgment. The purpose of this communication is to more accurately reflect the complexity of your patients condition. The fact that a question is asked does not imply that any particular answer is desired or expected. Thank you for your timely response to this clarification. Requestors name: Nikolay THIS PHYSICIAN QUERY FORM IS A PERMANENT PART OF THE MEDICAL RECORD NIKOLAY BURGOS Jul 01, 2019 08:44 DARYL SHIRLEY MD Jul 01, 2019 22:05
--- NOTE | 2019-07-02 10:31 | Physician Query Clarification ---
PQ-Further Specificity Admission/Discharge Admission Date: Jun 26, 2019 at 12:05 Discharge Date: Jun 29, 2019 at 16:30 The medical record reflects the following clinical scenario: History/Risk Factors: psychogenic stridor w/laryngospasm, acute respiratory distress, elevated carboxyhemoglobin Clinical Findings: carboxyhemoglobin 3.2, 3.6, PH 7.48, Pco2 32, Po2 75, P 121, Treatment: 2L NC, IV Ativan, IVF, IV Ceftriaxone Question: Can you further specify the underlying cause of the laryngospasm, acute respiratory distress and the elevated carboxyhemoglobin per the clinical indicators above? Please document a response in the Progress Notes or Discharge Summary. 1. carbon monoxide toxicity 2. etiology of the laryngospasm, acute respiratory distree and elevated carboxyhemoglobin undetermined 3. Other, with explanation of the clinical findings. 4. Clinically undetermined, no explanation for the clinical findings. PHYSICIAN RESPONSE Can you specify per above: 2 Please remember a lack of response to the above will prompt a phone page by CDI/Coding staff. In responding to this query, please exercise your independent professional judgment. The purpose of this communication is to more accurately reflect the complexity of your patients condition. The fact that a question is asked does not imply that any particular answer is desired or expected. Thank you for your timely response to this clarification. Requestors name: Nikolay THIS PHYSICIAN QUERY FORM IS A PERMANENT PART OF THE MEDICAL RECORD NIKOLAY BURGOS Jul 02, 2019 10:31 NANNETTE REVELES DO Jul 02, 2019 12:25
--- NOTE | 2019-07-03 13:28 | Discharge Summary ---
Diagnosis/Chief Complaint Date of Admission Jun 26, 2019 at 12:05 Date of Discharge Jun 29, 2019 at 16:30 Discharge Date: Jun 29, 2019 Discharge Diagnosis 1. Acute Respiratory Distress due to Psychogenic Stridor/Laryngospasm--improved with routine ativan dosing 2. Elevated Carboxyhemoglobin--Likely not carbon monoxide poisoning as her repeat level after oxygenation/treatment was the same 3. Tachycardia/Hypertension---improved on Cardizem/Metoprolol 4. Diabetes mellitus--on levemir with SSI 5. Anxiety--improved with ativan 6. Lactic Acidosis due to Dehydration--resolved after IVFs 7. Left Sciatica--improved 8. Hypoxia/Chronic Respiratory Failure--home on continuous oxygen Reason Hospital Visit This is a 74 year old female who was brought to the emergency room due to left leg pain and respiratory distress. She had been seen the night before in the emergency room for left leg pain and swelling and abdominal pain. She had a thorough workup which only revealed an elevated lactic acidosis which was felt to be due to dehydration so she was given a liter of IVFs and sent home to accomplish a venous doppler of the LLE the next morning. She was also given a shot of lovenox to cover for a DVT and a dose of rocephin to cover for UTI until the doppler and culture results were obtained. However, she was unable to get the venous doppler done the following day and was having worsening shortness of air so she was brought back to the emergency room where once again a thorough workup was done including a negative CT angiogram of the chest, negative cardiac enzymes, etc. Her lactic acid was again found to be elevated but this resolved after a bag of IVFs. However, she continued to have mild tachycardia and increased respiratory rate so it was decided to admit her for further treatment and evaluation. 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 She has a history of SVT so she will be started on cardizem/metoprolol. COVID-19 testing has also been done. Discharge Summary Hospital Course Was the Problem List Reviewed?: Yes Hospital Course This is a 74 year old female who was brought to the emergency room due to left leg pain and respiratory distress. She had been seen the night before in the emergency room for left leg pain and swelling and abdominal pain. She had a thorough workup which only revealed an elevated lactic acidosis which was felt to be due to dehydration so she was given a liter of IVFs and sent home to accomplish a venous doppler of the LLE the next morning. She was also given a shot of lovenox to cover for a DVT and a dose of rocephin to cover for UTI until the doppler and culture results were obtained. However, she was unable to get the venous doppler done the following day and was having worsening shortness of air so she was brought back to the emergency room where once again a thorough workup was done including a negative CT angiogram of the chest, negative cardiac enzymes, etc. Her lactic acid was again found to be elevated but this resolved after a bag of IVFs. However, she continued to have mild tachycardia and increased respiratory rate so it was decided to admit her for further treatment and evaluation. 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 She has a history of SVT so she will be started on cardizem/metoprolol. COVID-19 testing has also been done. She was admitted to the medical floor with COVID-19 isolation precautions. She was on continuous oxygen and breathing treatments. Her tachycardia resolved after metoprolol and cardizem were started. She did develop stridor after admission so IV ativan was ordered which did help her stridor when she was given prn doses. However, she continued to have episode of stridor with respiratory distress so the ativan was changed to scheduled dosing every 6 hours. Her COVID-19 came back negative by her second hospital day so she was removed from isolation. Her urine and blood cultures were also negative and her CXR was negative so rocephin was stopped and there was no elevation in her WBC count, fever or worsening of her symptoms after discontinuing the rocephin. Her left leg pain was treated with toradol for sciatica etiology and this did help those symptoms. Her carboxyhemoglobin did come back mildly elevated at 3.2 so her was notified of this to notify their landlord to have the house checked for carbon monoxide. However, after aggressive treatment with continuous oxygen and SVNS, her carboxyhemoglobin was 3.6 so it is felt that this is may be her baseline level and not a poisoning. I still recommended they get their house checked for carbon monoxide. By the day of discharge, her stridor was much better but she was require continuous oxygen so a oxygen qualifier test was done and she did qualify for continuous oxygen. She will be sent home on routine po ativan, continuous oxygen and SVNS with duoneb at least QID. I will followup with her in 1 week via telemedicine visit. Procedures None. Discharge Physical Examination Allergies: Coded Allergies: Penicillins (Unverified Allergy, Severe, Pt has received Cefepime & Ceftriaxone in the past w/o issue, 07/21/18) SWELLING, RASH, ITCHING Sulfa (Sulfonamide Antibiotics) (Verified Allergy, Mild, 07/21/18) RASH aspirin (Verified Adverse Reaction, Mild, ASPIRIN SENSITIVE, 07/21/18) UPSET STOMACH sumatriptan (Verified Adverse Reaction, Mild, PALPITATIONS, 07/21/18) IRRITABLE Vitals & I&Os Vital Signs Date Time Temp Pulse Resp B/P (MAP) Pulse Ox O2 Delivery O2 Flow Rate FiO2 06/29/19 16:31 36.2 60 20 115/64 96 Nasal Cannula 1.50 General Appearance: Alert, Oriented X3, Cooperative, No Acute Distress Respiratory: Clear to Auscultation Cardiovascular: Regular Rate Abdominal: Normal Bowel Sounds, Soft, No Tenderness Extremities: No Clubbing, No Cyanosis, No Edema Psych/Mental Status: Mental Status NL, Mood NL Discharge Home Medications Reviewed and agree with Discharge Medication list on patient's Discharge Instruction sheet Instructions to Patient/Family Please see electronic discharge instructions given to patient. Clinical Quality Measures DVT/VTE Risk/Contraindication: Risk Factor Score Per Nursin RFS Level Per Nursing on Admit: 4+=Very High NANNETTE REVELES DO July 03, 2019 13:28
== END 2019-06-29 16:30 | disposition home or self-care (01) | DRG 155 ==
LOC: EDUNIT# 15:12 → ER 15:13 → 4TH 19:32 → OBSVTOIN 06-26 12:05
PROVIDERS: ADMIT Family Medicine; ATTEND Family Medicine
DX: J38.5 Laryngeal spasm (principal); E87.2 Acidosis; E86.0 Dehydration; R06.03 Acute respiratory distress; F54 Psychological and behavioral factors associated with disorders or diseases classified elsewhere; R79.89 Other specified abnormal findings of blood chemistry; R00.0 Tachycardia, unspecified; E11.40 Type 2 diabetes mellitus with diabetic neuropathy, unspecified; Z79.4 Long term (current) use of insulin; J44.9 Chronic obstructive pulmonary disease, unspecified; Z99.81 Dependence on supplemental oxygen; G47.30 Sleep apnea, unspecified; I25.10 Atherosclerotic heart disease of native coronary artery without angina pectoris; Z20.828 Contact with and (suspected) exposure to other viral communicable diseases; E78.00 Pure hypercholesterolemia, unspecified; I10 Essential (primary) hypertension; K21.9 Gastro-esophageal reflux disease without esophagitis; M19.91 Primary osteoarthritis, unspecified site; M79.7 Fibromyalgia; F41.9 Anxiety disorder, unspecified; F32.9 Major depressive disorder, single episode, unspecified; Z79.82 Long term (current) use of aspirin; Z95.810 Presence of automatic (implantable) cardiac defibrillator; Z90.49 Acquired absence of other specified parts of digestive tract; Z90.710 Acquired absence of both cervix and uterus; Z90.722 Acquired absence of ovaries, bilateral; Z90.89 Acquired absence of other organs
CPT/HCPCS: 36415; 36600; 70360; 71045; 71275; 80053; 80061; 80306; 81000; 82375; 82805; 82962; 83605; 83615; 83735; 83874; 83880; 84145; 84484; 85025; 85379; 85610; 85730; 86141; 87040; 87635; 87804; 93041; 94640; 94760; 94761; G0378

== ENCOUNTER → 2019-06-24 | Outpatient (CLI) | payer MEDICARE ==
[~2019-06-24] MED LIST changes: +ASPI-983 PO; +CHOL500044 PO; +DILT240C91 PO; +DIPH25CA79 PO; +ESCI10TA PO; +GBPN600T PO; +INSN1U SQ; +MAGN400T39 PO; +METO-333 PO
--- NOTE | 2019-06-24 15:41 | Diagnostic Imaging Report ---
PROCEDURE: US left lower extremity venous. TECHNIQUE: Multiple real-time grayscale images were obtained over the left lower extremity in various projections. Additional duplex Doppler and color Doppler images were also obtained. INDICATION: Left lower extremity pain and swelling. FINDINGS: There is no evidence of left lower extremity DVT. Left lower extremity deep venous system shows normal compressibility with normal response to augmentation and Valsalva. No fluid collection or mass is detected. IMPRESSION: No evidence of left lower extremity DVT. Dictated by: Dictated on workstation # [id number]
--- NOTE | 2019-06-24 15:44 | Diagnostic Imaging Report ---
INDICATION: Left leg pain and swelling. TECHNIQUE: Grayscale, color-flow and duplex Doppler evaluation of the left lower extremity arterial system was performed. FINDINGS: There are primarily triphasic and biphasic waveforms throughout the left lower extremity arterial system. Triphasic waveforms in the common femoral, superficial femoral, and popliteal arteries are noted. There are biphasic waveforms below the knee within the posterior tibial and dorsalis pedis arteries. No significant velocity elevation is identified. No occlusion is identified. IMPRESSION: Unremarkable left lower extremity arterial Doppler. Dictated by: Dictated on workstation # [id number]
== END ==
LOC: RAD 14:19
PROVIDERS: ATTEND Emergency Medicine
DX: M79.605 Pain in left leg (principal); M79.89 Other specified soft tissue disorders
CPT/HCPCS: 93926

== ENCOUNTER 2019-08-11 21:32 | Emergency (ER) | payer MEDICARE ==
[~2019-08-11] VITALS: Ht 160 cm; Wt 89.0 kg
[~2019-08-11 21:32] MED LIST changes: +ASPI-983 PO; +CHOL500044 PO; +DILT240C91 PO; +DIPH25CA79 PO; +ESCI10TA PO; +GBPN600T PO; +INSN1U SQ; +LORA-404 PO; +LORA10TA7 PO; +MAGN400T39 PO; +METF-865 PO; -METF500T19 PO; +METO-333 PO; +METO50TA15 PO; +MONT10TA26 PO; -PHEN26CR RC; +PHEN26CR2 RC
[2019-08-11] MEDS ORDERED: ORPHENADRINE 60 MG/2 ML (NORFLEX) AMP IM ONE (21:45)
[2019-08-11] MEDS ORDERED: diphenhydrAMINE 50 MG/ML INJ (BENADRYL) IM ONE (21:45)
[2019-08-11] MEDS ORDERED: ONDANSETRON 4 MG (ZOFRAN) ORAL DISSOLVE TAB PO STA (21:45)
[2019-08-11] MEDS ORDERED: KETOROLAC 60 MG/2 ML VIAL IM ONE (21:45)
--- NOTE | 2019-08-11 21:57 | ED Headache ---
General Chief Complaint: Head/Cervical Problems Stated Complaint: HEADACHE Source: patient, old records History of Present Illness Date Seen by Provider: Aug 11, 2019 Time Seen by Provider: 21:40 Initial Comments PT ARRIVES VIA POV FROM HOME C/O HEADACHE SINCE 12:30 THIS AFTERNOON PT WITH CHRONIC HEADACHES, AND A MULTITUDE OF ER VISITS FOR SAME ( IN ADDITION TO MULTIPLE CHRONIC PAIN COMPLAINTS STATES THIS IS SAME HER USUAL HEADACHES STATES PAIN IS ALL OVER HER HEAD AND "GOES DOWN INTO MY NECK AND BACK" --STATES HER NECK AND BACK MUSCLES GET TIGHT WITH HEADACHES STATES HER VISION IS BLURRY AND HAD "WIGGLY LINES" AND "TEMPORARILY BLIND"--STATES IS EXACTLY THE SAME PREVIOUS HEADACHES C/O NAUSEA, NO VOMITING NO PARESTHESIAS OR MOTOR DEFICITS NO FEVER OR RECENT ILLNESS NO COUGH OR URI/SINUS SYMPTOMS NO ABDOMINAL PAIN OR DIARRHEA NO CHEST PAIN OR SHORTNESS OF BREATH NO KNOWN SICK CONTACTS OR EXPOSURE TO COVID-19 HAS NOT TAKEN ANYTHING FOR SYMPTOMS PCP: DR. REVELES Allergies and Home Medications Allergies Coded Allergies: Penicillins (Unverified Allergy, Severe, Pt has received Cefepime & Ceftriaxone in the past w/o issue, 07/21/18) SWELLING, RASH, ITCHING Sulfa (Sulfonamide Antibiotics) (Verified Allergy, Mild, 07/21/18) RASH aspirin (Verified Adverse Reaction, Mild, ASPIRIN SENSITIVE, 07/21/18) UPSET STOMACH sumatriptan (Verified Adverse Reaction, Mild, PALPITATIONS, 07/21/18) IRRITABLE Home Medications Cholecalciferol (Vitamin D3) 125 Mcg Tablet, 250 MCG PO 1800, (Reported) Diltiazem HCl 240 Mg Cap.er.24h, 240 MG PO DAILY, (Reported) Escitalopram Oxalate 10 Mg Tablet, 10 MG PO DAILY, (Reported) LAST FILLED 02-02-2019 #90/90 DAYS SUPPLY Insulin NPH Human Isophane 100 Unit/1 Ml Vial, 25 UNIT SQ BID Prescribed by: NANNETTE REVELES on 06/29/19 124 Loratadine 10 Mg Tablet, 10 MG PO DAILY Prescribed by: NANNETTE REVELES on 06/29/19 124 Lorazepam 0.5 Mg Tablet, 0.5 MG PO QID Prescribed by: NANNETTE REVELES on 06/29/19 124 Magnesium Oxide 400 Mg Tablet, 800 MG PO DAILY, (Reported) TAKES 2 (400MG) TABS Melatonin 3 Mg Tablet, 6 MG PO HS PRN for SLEEP, (Reported) TAKES 2 (3MG) TABS Metoprolol Tartrate 50 Mg Tablet, 100 MG PO BID replaces 25mg dose Prescribed by: NANNETTE REVELES on 06/29/19 1247 Montelukast Sodium 10 Mg Tablet, 10 MG PO HS Prescribed by: NANNETTE REVELES on 06/29/19 1247 Omeprazole 40 Mg Capsule.dr, 40 MG PO BID, (Reported) Pramipexole Di-HCl 1 Mg Tablet, 1 MG PO HS, (Reported) LAST FILLED 02-16-2019 #90/90 DAY SUPPLT Patient Home Medication List Home Medication List Reviewed: Yes Review of Systems Review of Systems Constitutional: no symptoms reported; No chills, No diaphoresis, No dizziness, No fever, No malaise, No weakness Eyes: See HPI, Blurred Vision, Vision Changes Ears, Nose, Mouth, Throat: no symptoms reported; denies ear pain, denies nose discharge, denies throat pain Respiratory: no symptoms reported; No cough, No short of breath Cardiovascular: no symptoms reported; No chest pain, No edema, No palpitations, No syncope Gastrointestinal: see HPI; No abdominal pain, No diarrhea, No loss of appetite; nausea; No vomiting Genitourinary: no symptoms reported Musculoskeletal: see HPI (HAS FIBROMYALGIA AND CHRONIC NECK AND BACK PAIN ), back pain, neck pain Skin: no symptoms reported; No rash Psychiatric/Neurological: See HPI, Headache; Denies Numbness, Denies Paresthesia, Denies Seizure, Denies Tingling, Denies Tremors, Denies Weakness Past Gxfcydy-Vvqzvg-Pkuqkn Hx Past Med/Social Hx: Reviewed and Corrections made Patient Social History Alcohol Use: Denies Use Recreational Drug Use: No 2nd Hand Smoke Exposure: Yes Recent Foreign Travel: No Contact w/Someone Who Travel: No Recent Hopitalizations: No Physical Abuse: No Sexual Abuse: No Mistreated: No Fear: No Immunizations Up To Date Tetanus Booster (TDap): Unknown PED Vaccines UTD: No Date of Pneumonia Vaccine: Apr 04, 2018 Date of Influenza Vaccine: Dec 31, 2018 Seasonal Allergies Seasonal Allergies: Yes Past Medical History Surgeries: Yes (LAP CORNELIUS; C-SPINE FUSION/DISCECTOMY C5-C6 ) Abdominal, Appendectomy, Cardiac, Defibrillator, Eye Surgery, Gallbladder, Hysterectomy, Oophorectomy, Orthopedic, Pacemaker, Tonsillectomy Respiratory: Yes (O2 AT HS AND PRN) Asthma, Pneumonia, Chronic Bronchitis, Sleep Apnea, COPD Currently Using CPAP: No Currently Using BIPAP: No Cardiac: Yes (PACEMAKER/DEFIBRILLATOR;CARDIAC ARREST DURING ENT SURGERY;PSVT/PALPITATIONS) Coronary Artery Disease, High Cholesterol, Hypertension, Irregular Heartbeat Neurological: Yes (PERIPHERAL NEUROPATHY HANDS/FEET; CHRONIC HEADACHES) Headaches /Migraines, Neuropathy 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 Disorders: No Female 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 Disorders: Denies 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 PAIN) Degenerate Disk Disease, Arthritis, Fibromyalgia, Chronic Back Pain, Fractures Endocrine: Yes Diabetes, Insulin dep, Diabetes, Non-Insulin dep HEENT: Yes (S/P BILATERAL CATARACT SURGERY + YAG PROCEDURE;ENT SURG WITH CARDIAC ARREST) Cataract Loss of Vision: Denies Hearing Impairment: Denies Cancer: No Psychosocial: Yes Anxiety, Depression Integumentary: Yes (NELIA INTERTRIGO) Pruritis Blood Disorders: No Adverse Reaction/Blood Tranf: No Family Medical History Alzheimer's disease 19 FATHER Cardiovascular disease 19 FATHER 19 MOTHER Completed stroke 19 MOTHER Hypertension 19 FATHER 19 MOTHER Myocardial infarction 19 FATHER 19 MOTHER No Family History of: Diabetes mellitus PSH: -T12 KYPHOPLASTY -C5-C6 CERVICAL DISCECTOMY WITH FUSION 04/2018 -LAP CORNELIUS FUNDOPLICATION -EGD'S/ESOPHAGEAL DILATIONS/COLONOSCOPIES/POLYPECTOMIES -PACEMAKER/DEFIBRILLATOR -HYSTERECTOMY/BSO -CHOLECYSTECTOMY -APPENDECTOMY -TONSILLECTOMY -OVARIAN CYST SURGERIES X 4 -CYST FROM BACK REMOVED -ENT SURGERY PMH: -CHRONIC NECK PAIN WITH CERVICAL RADICULOPATHY -RESTLESS LEG SYNDROME -CHRONIC BACK PAIN -T12 COMPRESSION WITH KYPHOPLASTY Physical Exam Vital Signs Vital Signs - First Documented 08/11/19 21:45 Temp 36.8 Pulse 65 Resp 16 B/P (MAP) 124/61 (82) O2 Delivery Room Air Capillary Refill : Height, Weight, BMI Height: 5'4.00" Weight: 215lbs. 0oz. 97.082612fr; 39.21 BMI Method:Stated General Appearance: WD/WN, no apparent distress, other (AMBULATES IN ON HER OWN WITH CANE. DOES NOT APPEAR TO BE ILL OR IN ANY APPARENT DISTRESS. HAIR DYED LAVENDER) HEENT: PERRL/EOMI, normal ENT inspection, TMs normal, pharynx normal Neck: normal inspection Cardiovascular: normal peripheral pulses (+2/4 IN ALL 4 EXTREMITIES), regular rate, rhythm, no edema, no JVD, no murmur Respiratory: normal breath sounds, no respiratory distress, no accessory muscle use Gastrointestinal: normal bowel sounds, non tender, soft Back: normal inspection, no CVA tenderness, no vertebral tenderness Extremities: normal range of motion, non-tender, normal inspection, no pedal edema, no calf tenderness, normal capillary refill Psychiatric: alert, oriented x 3 Crainal Nerves: normal hearing, normal speech, PERRL Coordination/Gait: normal gait Motor/Sensory: no motor deficit, no sensory deficit, no pronator drift Skin: normal color, warm/dry Procedures/Interventions Date of ETT Placement: Apr 21, 2018 Time of ETT Placement: 1744 Progress/Results/Core Measures Results/Orders My Orders Orders - PETER ASHLEY DO Ketorolac Injection (Toradol Injection) (08/11/19 21:45) Orphenadrine Injection (Norflex Injectio (08/11/19 21:45) Diphenhydramine Injection (Benadryl Inje (08/11/19 21:45) Ondansetron Oral Dissolve Tab (Zofran (08/11/19 21:45) Medications Given in ED Current Medications Medications Dose Ordered Sig/Alannah Route Start Time Stop Time Status Last Admin Dose Admin Diphenhydramine HCl 50 mg ONCE ONCE IM 08/11/19 21:45 08/11/19 21:47 DC 08/11/19 22:03 50 MG Ketorolac Tromethamine 60 mg ONCE ONCE IM 08/11/19 21:45 08/11/19 21:47 DC 08/11/19 22:03 60 MG Orphenadrine Citrate 60 mg ONCE ONCE IM 08/11/19 21:45 08/11/19 21:47 DC 08/11/19 22:04 60 MG Vital Signs/I&O 08/11/19 21:45 Temp 36.8 Pulse 65 Resp 16 B/P (MAP) 124/61 (82) O2 Delivery Room Air Progress Progress Note : Progress Note UNEVENTFUL ER STAY Departure Impression Primary Impression: Chronic headaches Disposition: HOME, SELF-CARE Condition: Stable Departure-Patient Inst. Referrals: NANNETTE REVELES DO (PCP/Family) Primary Care Physician Patient Instructions: Headache, Adult (DC) Add. Discharge Instructions: HOME, REST LOTS OF CLEAR LIQUIDS TAKE YOUR REGULAR MEDICATIONS PRESCRIBED FOLLOW UP WITH YOUR DR IN 1-2 DAYS IF NO BETTER All discharge instructions reviewed with patient and/or family. Voiced understanding. PETER ASHLEY DO Aug 11, 2019 21:57
[2019-08-11 22:26] VITALS: BP 111/65
== END 2019-08-11 22:27 | disposition home or self-care (01) ==
LOC: EDUNIT# 21:32 → ER 21:33
DX: R51 Headache (principal); J44.9 Chronic obstructive pulmonary disease, unspecified; I10 Essential (primary) hypertension; I25.10 Atherosclerotic heart disease of native coronary artery without angina pectoris; E11.42 Type 2 diabetes mellitus with diabetic polyneuropathy; K21.9 Gastro-esophageal reflux disease without esophagitis; F41.9 Anxiety disorder, unspecified; F32.9 Major depressive disorder, single episode, unspecified; Z95.810 Presence of automatic (implantable) cardiac defibrillator; Z88.0 Allergy status to penicillin; Z86.69 Personal history of other diseases of the nervous system and sense organs; Z88.2 Allergy status to sulfonamides; Z88.6 Allergy status to analgesic agent; Z88.8 Allergy status to other drugs, medicaments and biological substances; Z79.4 Long term (current) use of insulin; Z77.22 Contact with and (suspected) exposure to environmental tobacco smoke (acute) (chronic); Z82.49 Family history of ischemic heart disease and other diseases of the circulatory system
CPT/HCPCS: 99284

== ENCOUNTER → 2019-08-24 | Outpatient (CLI) | payer MEDICARE ==
--- NOTE | 2019-08-24 13:31 | Diagnostic Imaging Report ---
INDICATION: Bilateral breast pain. Correlation is made with prior mammograms dating back to 2013. 2-D and 3-D bilateral diagnostic mammography was performed with CAD. Asymmetric density upper outer right breast is stable. Numerous benign calcifications are noted bilaterally. No suspicious mass or malignant-appearing microcalcifications are seen. Axillae are unremarkable. IMPRESSION: BI-RADS Category 2. No mammographic features suspicious for malignancy are identified. ACR BI-RADS Category 2: Benign findings. Result letter will be mailed to the patient. Note: At least 10% of breast cancer is not imaged by mammography. Dictated by: Dictated on workstation # [id number]
== END ==
LOC: RAD 13:02
PROVIDERS: ATTEND Nurse Practitioner Family
DX: N64.4 Mastodynia (principal)
CPT/HCPCS: 77066; G0279; 77062

== ENCOUNTER 2019-08-27 07:33 | Emergency (ER) | payer MEDICARE ==
[~2019-08-27] VITALS: Ht 160 cm; Wt 102.0 kg
--- OUTSIDE RECORDS SUMMARY | 2019-08-27 07:40 | XMS REPORT | Encounter Summary ---
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 Name Role Phone Belia Reid MD PCP Reason for Visit * Reason Comments Medication Refill Encounter Details Care Team Description Date Type Department Calvin Tripp APRN-CNS [address] [facility] [address] [place] [address] [phone] Uncontrolled type 2 diabetes mellitus wi th hyperglycemia (HCC) 03/19/2019 Refill [facility] [address] [place] [address] Social History Date Tobacco Use Types Packs/Day [...] (04/01/2017 No Conchis antoine, Component 10:37 AM 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
--- OUTSIDE RECORDS SUMMARY | 2019-08-27 07:40 | XMS REPORT | Clinical Summary ---
Author Author [facility] Organization [facility] Address Unknown Phone Unavailable Care Team Providers Care Author Agent Name Role Phone Belia Reid MD PCP Source Comments Some departments are not documenting in the electronic medical record. If you d o not see the information that you expected, contact Release of Information in [facility] Information Management department at [phone] for further assistan ce in locating additional records.[facility] Allergies Comments Active Allergy Reactions Severity [...] y Kidney stones 08/24/2016 Overview: -- 10/15/16: Yard Caller evaluation non-obstruct ing stone. 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 Blood Pressure 64 03/20/2018 12:54 PM AIRPLANE RIGGER Pulse - - Temperature - - Respiratory Rate - - Oxygen Saturation - - Inhaled Oxygen Concentration 97.9 kg (215 lb 14.4 oz) 03/20/2018 12:54 PM AIRPLANE RIGGER Weight 164.6 cm (5' 4.8") 03/20/2018 12:54 PM AIRPLANE RIGGER Height 36.15 03/20/2018 12:54 PM AIRPLANE RIGGER Body Mass Index Plan of Treatment Health Maintenance Due Date Last Done Comments MEDICARE ANNUAL WELLNESS 1945 VISIT DILATED EYE EXAM 1964 DTAP/TDAP VACCINES (1 - 1964 Tdap) HEPATITIS C SCREENING 1964 MICROALBUMIN 1964 PHYSICAL (COMPREHENSIVE) 1964 EXAM BREAST CANCER SCREENING 1986 COLORECTAL CANCER 1996 SCREENING SHINGLES RECOMBINANT 1996 VACCINE (1 of 2) OSTEOPOROSIS 06/16/2011 SCREENING/MONITORING PNEUMONIA (PPSV23) 06/16/2011 VACCINE (1 of 1 - PPSV23) HBA1C 05/13/2018 11/13/2017, 07/12/2017, 04/01/2017, Additional history exists FOOT EXAM 03/20/2019 03/20/2018 INFLUENZA VACCINE 12/03/2019 11/14/2017 Goals Goal Patient Associated Recent Progress Patient-Stat Aut hor Goal Type Problems ed? HEMOGLOBIN A1C < 7.5 Result 9.9 (04/01/2017 Leonela antoine, Component 10:37 AM AIRPLANE RIGGER) Calvin Minor APRN-SKILLED NURSING PROFESSIONAL Results Not on filefrom Last 3 Months Insurance Type Payer Benefit Subscriber ID Effective Phone Address Plan / Dates Group Medicare HUMANA MEDICARE HUMANA xxxxxxxxx [id number] CHOICE PPO resent Advance Directives Patient Engineering Manager Explanation Type Date Recorded Advance Directive/DPOA
--- OUTSIDE RECORDS SUMMARY | 2019-08-27 07:42 | XMS REPORT | CCD ---
Author Author Diana Reid D.O. Organization [facility] Address [address] [place] [address] Phone Care Team Providers Care Inspector [employer] Name Role Phone Bleia [facility] D.O., PP Unavailable CCM Unavailable Summary Purpose Interface Exchange Insurance Providers Payer name Policy type / Coverage type Covered constitution party ID Effective Begin Date Effective End Date [employer] MEDICARE Medicare Part B [id number] 2019 Unknown Family History Family History data not found Social History Social History Element Codes Description Effective Dates Tobacco history SNOMED CT: 424991346 Nonsmoker 09/13/2010 Allergies, Adverse Reactions, Alerts Substance Reaction Codes Entered Date Inactivated Date Status Eggs reaction [id number] 09/15/2015 No Inactive Date Active _ Unknown 01/07/2019 No Inactive Date Active PENICILLINS Unknown 01/07/2019 No Inactive Date Active SULFA (SULFONAMIDES) rash Unknown 11/02/2010 No Inactive Mike e Active Problems Condition Codes Effective Dates Condition Status Fibromyalgia ICD-9: 729.1 ICD-10: M79.7 08/04/2013 Active Generalized pain ICD-9: 780.96 ICD-10: R52 08/25/2019 Active Hypoxia ICD-9: 799.02 ICD-10: R09.02 08/25/2019 Active Migraine ICD-9: 346.90 ICD-10: G43.909 08/04/2013 Active Muscle weakness ICD-9: 728.87 ICD-10: M62.81 08/25/2019 Active Screening mammogram, encounter for ICD-9: V76.12 ICD-10: Z12.31 08/18/2019 Active LION (obstructive sleep apnea) ICD-9: 327.23 ICD-10: G47.33 08/10/2019 Active Yawning ICD-9: 786.09 ICD-10: R06.89 08/10/2019 Active Constipation ICD-9: 564.00 ICD-10: K59.00 08/04/2019 Active Dyspnea ICD-9: 786.09 ICD-10: R06.00 06/24/2019 Active Left leg swelling ICD-9: 729.81 ICD-10: M79.89 06/24/2019 Active Pelvic pain in female ICD-9: 625.9 ICD-10: R10.2 08/04/2019 Active Diarrhea ICD-9: 787.91 ICD-10: R19.7 06/24/2012 Active Inspiratory stridor ICD-9: 786.1 ICD-10: R06.1 05/02/2016 Active Acute bronchitis ICD-9: 466.0 ICD-10: J20.9 07/19/2017 Active Colitis ICD-9: 558.9 ICD-10: K52.9 05/26/2019 Active Abdominal bloating ICD-9: 787.3 ICD-10: R14.0 06/08/2019 Active Acute febrile illness ICD-9: 780.60 ICD-10: R50.9 05/26/2019 Active Chronic obstructive pulmonary disease, unspecified ICD -9: 496 ICD-10: J44.9 09/14/2015 Active Pulmonary fibrosis ICD-9: 515 ICD-10: J84.10 05/13/2019 Active COUGH ICD-9: 786.2 ICD-10: R05 02/28/2016 Active Muscle, jerky movements (uncontrolled) ICD-9: 333.5 ICD-10: G25.5 04/29/2019 Active Flank pain ICD-9: 789.09 ICD-10: R10.9 12/04/2015 Active Upper respiratory infection ICD-9: 465.9 ICD-10: J06.9 04/16/2019 Active Weight gain ICD-9: 783.1 ICD-10: R63.5 04/16/2019 Active Generalized pruritus ICD-9: 698.9 ICD-10: L29.9 08/20/2018 Active Acute bursitis of left shoulder ICD-9: [...] pain ICD-9: 724.2 ICD-10: M54.5 10/08/2016 Active Acute sinusitis, unspecified ICD-9: 461.9 ICD-10: [...] Start Date Stop Date Status Fill Instructions baclofen 10 mg tablet RxNorm: 112738 1 Tablet(s) Oral QD for pa in/spasm 08/25/2019 09/24/2019 Active meloxicam 15 mg tablet RxNorm: 434849 1 Tablet(s) Oral QD for pain 08/25/2019 09/24/2019 Active Insulin Syringe 1 mL 29 gauge x 1/2" RxNorm: 2 s yringes daily with insulin Dx: E11.65 08/12/2019 No Stop Date Active Ativan 0.5 mg tablet RxNorm: 033598 1 Tablet(s) Oral th ree times a day for anxiety/shortness of air/stridor 07/29/2019 08/27/2019 Active Singulair 10 mg tablet RxNorm: 461711 1 Tablet(s) Oral QPM 07/29/1901/25/2020 Active diltiazem CD 240 mg capsule,extended release 24 hr RxNorm: 8 74414 1 Capsule(s) Oral QD 07/15/2019 01/10/2020 Active metoprolol tartrate 50 mg tablet RxNorm: 629013 1 Table t(s) Oral two times a day 07/06/2019 No Stop Date Active Novolin N NPH U-100 Insulin isophane 100 unit/mL subcu taneous susp RxNorm: 046769 25 Unit(s) Subcutaneous two times a day 07/06/2019 07/06/2019 I nactive Colestid 1 gram tablet RxNorm: 2806771 1 Tablet(s) Oral two times a day for diarrhea 07/06/2019 09/04/2019 Active pramipexole 1 mg tablet RxNorm: 800224 1 Tablet(s) Oral QPM FOR RESTLESS LEGS (REPLACES REQUIP) 06/25/2019 06/19/2020 Active hydroxyzine HCl 25 mg tablet RxNorm: 329749 1 Tablet(s) Oral QPM for itching/aniety 06/25/2019 09/23/2019 Active Ativan 0.5 mg tablet RxNorm: 490920 1 Tablet(s) Oral th ree times a day for anxiety/shortness of air/stridor 06/25/2019 07/25/2019 Inactive Levaquin 500 mg tablet RxNorm: 946666 1 Tablet(s) Oral QD 06/16/2019 06/23/2019 Inactive Flagyl 500 mg tablet RxNorm: 274278 1 Tablet(s) Oral three time s a day 06/16/2019 06/23/2019 Inactive Vancocin 125 mg capsule RxNorm: 996261 1 Capsule(s) Oral four t imes a day 06/08/2019 06/18/2019 Inactive omeprazole 40 mg capsule,delayed release RxNorm: 100756 1 Capsule(s) Oral two times a day 05/26/2019 11/21/2019 Active Flagyl 500 mg tablet RxNorm: 800324 1 Tablet(s) Oral three time s a day 05/26/2019 06/05/2019 Inactive diltiazem CD 240 mg capsule,extended release 24 hr RxNorm: 8 55077 1 Capsule(s) Oral QD 05/26/2019 07/14/2019 Inactive Cipro 250 mg tablet RxNorm: 178802 1 Tablet(s) Oral two times a day 05/26/2019 06/02/2019 Inactive hydroxyzine HCl 25 mg tablet RxNorm: 452925 1 Tablet(s) Oral QPM for itching/aniety 05/21/2019 06/24/2019 Inactive metoprolol tartrate 25 mg tablet RxNorm: 775082 1 Table t(s) Oral two times a day 05/21/2019 07/05/2019 Inactive hydroxyzine HCl 25 mg tablet RxNorm: 039980 1 Tablet(s) Oral QPM for itching/aniety 05/13/2019 05/20/2019 Inactive Singulair 10 mg tablet RxNorm: 089469 1 Tablet(s) Oral QPM 05/06/19 20 05/12/2019 Inactive gabapentin 600 mg tablet RxNorm: 589605 1 Tablet(s) Oral QD 020 06/05/2019 Inactive Valium 5 mg tablet RxNorm: 092892 1 Tablet(s) Oral QPM for stri joao/muscle spasm 04/29/2019 06/24/2019 Inactive baclofen 10 mg tablet RxNorm: 384430 1 Tablet(s) Oral QPM for s pasm/neck pain 04/24/2019 05/23/2019 Inactive baclofen 10 mg tablet RxNorm: 538120 1 Tablet(s) Oral QPM for s pasm/neck pain 04/24/2019 04/23/2019 Inactive Novolin N NPH U-100 Insulin isophane 100 unit/mL subcu taneous susp RxNorm: 910079 23 Unit(s) Subcutaneous two times a day 04/20/2019 07/05/2019 I nactive cyclobenzaprine 5 mg tablet RxNorm: 805080 1 Tablet(s) Oral three times a day as needed 04/16/2019 04/23/2019 Inactive hydroxyzine HCl 25 mg tablet RxNorm: 897471 1 Tablet(s) Oral three times a day for itching/aniety 04/08/2019 05/12/2019 Inactive gabapentin 600 mg tablet RxNorm: 980896 1 Tablet(s) Oral two ti mes a day 04/08/2019 05/05/2019 Inactive gabapentin 600 mg tablet RxNorm: 369364 1 Tablet(s) Oral two ti mes a day 04/08/2019 04/07/2019 Inactive Novolin N NPH U-100 Insulin isophane 100 unit/mL subcu taneous susp RxNorm: 628430 10 Unit(s) Subcutaneous two times a day 03/03/2019 04/19/2019 I nactive gabapentin 300 mg capsule RxNorm: 094942 1 Capsule(s) O ral every night at bedtime for neuropathy 02/26/2019 04/07/2019 Inactive gabapentin 300 mg capsule RxNorm: 475039 1 Capsule(s) O ral every night at bedtime for neuropathy 02/20/2019 02/25/2019 Inactive buspirone 5 mg tablet RxNorm: 925240 TAKE 1 TABLET THREE TIMES MILDRED Y 02/12/2019 05/12/2019 Inactive pramipexole 1 mg tablet RxNorm: 540956 1 Tablet(s) Oral QPM FOR RESTLESS LEGS (REPLACES REQUIP) 02/12/2019 06/24/2019 Inactive Lexapro 10 mg tablet RxNorm: 970061 TAKE 1 TABLET EVERY DAY FOR MOO D 01/31/2019 No Stop Date Active Ativan 0.5 mg tablet RxNorm: 349892 TAKE 1 TABLET BY [facility] THREE TIMES DAILY NEEDED FOR ANXIETY 01/26/2019 04/28/2019 Inactive Ativan 0.5 mg tablet RxNorm: 624010 TAKE 1 TABLET BY [facility] THREE TIMES DAILY NEEDED FOR ANXIETY 01/05/2019 01/05/2019 Inactive Levaquin 500 mg tablet RxNorm: 479484 1 Tablet(s) Oral QD 12/25/2018 12/24/2018 Inactive Levaquin 500 mg tablet RxNorm: 816942 1 Tablet(s) Oral QD 12/25/2018 01/04/2019 Inactive baclofen 10 mg tablet RxNorm: 944807 1 Tablet(s) Oral three amico es a day 11/20/2018 01/19/2019 Inactive Ativan 0.5 mg tablet RxNorm: 831854 TAKE 1 TABLET BY [facility] THREE TIMES DAILY NEEDED FOR ANXIETY 11/20/2018 01/04/2019 Inactive gabapentin 300 mg capsule RxNorm: 797404 1 Capsule(s) O ral every night at bedtime for neuropathy 11/20/2018 12/20/2018 Inactive Lexapro 10 mg tablet RxNorm: 911383 1 Tablet(s) PO QD for mood 07/201801/30/2019 Inactive Zithromax Z-Lj 250 mg tablet RxNorm: 525693 Tablet(s) PO take as directed 11/04/2018 11/19/2018 Inactive Insulin Syringe 1 mL 29 gauge x 1/2" RxNorm: 2 s yringes daily with insulin Dx: E11.65 10/08/2018 08/11/2019 Inactive gabapentin 300 mg capsule RxNorm: 395375 1 Capsule(s) PO QHS fo r neuropathy 09/18/2018 10/17/2018 Inactive cyclobenzaprine 5 mg tablet RxNorm: 016149 1 Tablet(s) PO TID a s needed 09/09/2018 09/08/2018 Inactive cyclobenzaprine 5 mg tablet RxNorm: 290303 1 Tablet(s) PO TID a s needed 09/09/2018 10/08/2018 Inactive prednisone 20 mg tablet RxNorm: 736124 1 Tablet(s) PO QD 09/08/2018 0 09/12/2018 Inactive Lantus Solostar U-100 Insulin 100 unit/mL (3 mL) subcu taneous pen RxNorm: 031209 55 Unit(s) SQ QAM 08/28/2018 11/03/2018 Inactive hydroxyzine HCl 25 mg tablet RxNorm: 165925 1 Tablet(s) PO QHS for itching 08/20/2018 05/12/2019 Inactive Lexapro 10 mg tablet RxNorm: 777122 1 Tablet(s) PO QD for mood 08/0210/18/2018 Inactive sumatriptan 100 mg tablet RxNorm: 616089 1 Tablet(s) PO at headache onset. May repeat 1 in two hours if headache remains. Max of 2 per 24 hours 04/02/2018 05/20/2018 Inactive Diflucan 150 mg tablet RxNorm: 776322 1 Tablet(s) PO QD 03/18/2018 Inactive Diflucan 150 mg tablet RxNorm: 887742 1 Tablet(s) PO QD 03/18/2018 Inactive Flagyl 500 mg tablet RxNorm: 663206 1 Tablet(s) PO TID 03/17/2018 Inactive Levaquin 500 mg tablet RxNorm: 827847 1 Tablet(s) PO QD 03/17/2018 Inactive Levaquin 500 mg tablet RxNorm: 314723 1 Tablet(s) PO QD 03/17/2018 Inactive Flagyl 500 mg tablet RxNorm: 795406 1 Tablet(s) PO TID 03/17/2018 Inactive ketoconazole 200 mg tablet RxNorm: 113074 1 Tablet(s) PO QD 019 03/19/2018 Inactive Celebrex 200 mg capsule RxNorm: 822632 1 Capsule(s) PO BID 02/06/20 18 05/20/2018 Inactive tramadol 50 mg tablet RxNorm: 365777 1 Tablet(s) PO TID as needed 1 04/08/2017 05/20/2018 Inactive gabapentin 300 mg capsule RxNorm: 041014 1 Capsule(s) PO BID 201705/20/2018 Inactive Diflucan 150 mg tablet RxNorm: 229827 1 Tablet(s) PO QD 01/20/2018 Inactive pramipexole 1 mg tablet RxNorm: 147837 1 Tablet(s) PO Q PM FOR RESTLESS LEGS (REPLACES REQUIP) 01/08/2018 02/11/2019 Inactive cyclobenzaprine 10 mg tablet RxNorm: 860045 1 Tablet(s) PO TID as needed for muscle spasm 12/17/2017 05/20/2018 Inactive pramipexole 1 mg tablet RxNorm: 765840 TAKE 1 TABLET BY MOUTH ONCE DAILY IN THE EVENING FOR RESTLESS LEGS (REPLACES REQUIP) 12/04/2017 01/05/2018 Inac tive Amaryl 4 mg tablet RxNorm: 471539 1 Tablet(s) PO BID replaces 2mg 0 11/05/2017 12/16/2017 Inactive Singulair 10 mg tablet RxNorm: 450386 1 Tablet(s) PO QHS for al lergies/lungs 10/30/2017 12/16/2017 Inactive Diflucan 100 mg tablet RxNorm: 399997 1 Tablet(s) PO QD 10/23/2017 Inactive Ativan 0.5 mg tablet RxNorm: 817752 TAKE 1 TABLET BY MOUTH THRE E TIMES DAILY 08/30/2017 11/20/2018 Inactive buspirone 5 mg tablet RxNorm: 343918 1 Tablet(s) PO TID 07/11/2017 Inactive propranolol 60 mg tablet RxNorm: 999262 1 Tablet(s) PO BID repl aces 40mg dose 06/26/2017 12/16/2017 Inactive Amaryl 4 mg tablet RxNorm: 590528 1 Tablet(s) PO BID replaces 2mg 0 06/12/2017 11/05/2017 Inactive omeprazole 40 mg capsule,delayed release RxNorm: 916551 1 Capsule(s) PO BID TAKE ONE CAPSULE BY MOUTH TWICE DAILY 05/30/2017 11/25/2017 Inactive pramipexole 1 mg tablet RxNorm: 217730 1 Tablet(s) PO Q PM for restless legs--replaces requip 05/30/2017 11/25/2017 Inactive amitriptyline 50 mg tablet RxNorm: 746027 1 Tablet(s) PO QHS 201709/16/2017 Inactive Diflucan 100 mg tablet RxNorm: 231211 1 Tablet(s) PO BID 05/07/2017 0 05/20/2017 Inactive nystatin (bulk) 100 million unit powder RxNorm: Application TO P BID 05/07/2017 05/20/2018 Inactive cholestyramine (with sugar) 4 gram oral powder RxNorm: 437752 1 Unit Dose PO QD 05/07/2017 01/20/2018 Inactive Ativan 0.5 mg tablet RxNorm: 211384 TAKE ONE TABLET BY MOUTH TH REE TIMES DAILY 05/01/2017 09/02/2017 Inactive Trulicity 1.5 mg/0.5 mL subcutaneous pen injector RxNorm: 15 34681 1 Unit Dose SQ WEEKLY 02/22/2017 03/23/2017 Inactive doxycycline hyclate 100 mg capsule RxNorm: 7463661 1 Capsule(s) PO BID 01/23/2017 02/05/2017 Inactive Amaryl 4 mg tablet RxNorm: 074890 1 Tablet(s) PO BID replaces 2mg 1 03/25/2016 05/22/2017 Inactive magnesium oxide 400 mg capsule RxNorm: 753779 1 Capsule(s) PO QD 07/18/2017 Inactive Ativan 0.5 mg tablet RxNorm: 281171 TAKE ONE TABLET BY MOUTH TH REE TIMES DAILY 01/17/2017 05/01/2017 Inactive Amaryl 2 mg tablet RxNorm: 999617 1 Tablet(s) PO BID 12/27/201601/22 Inactive Amaryl 2 mg tablet RxNorm: 093093 1 Tablet(s) PO BID 12/26/201612/26 Inactive Ativan 0.5 mg tablet RxNorm: 434490 TAKE ONE TABLET BY MOUTH TH REE TIMES DAILY 12/05/2016 01/18/2017 Inactive pramipexole 1 mg tablet RxNorm: 293250 1 Tablet(s) PO Q PM for restless legs--replaces requip 11/26/2016 05/30/2017 Inactive Mobic 15 mg tablet RxNorm: 855042 1 Tablet(s) PO QD 10/08/20162016 Inactive cyclobenzaprine 5 mg tablet RxNorm: 010304 1/2- 1 Tablet(s) PO TID 10/08/2016 10/17/2016 Inactive Ativan 0.5 mg tablet RxNorm: 600830 1 Tablet(s) PO TID 09/20/201607/2016 Inactive amitriptyline 50 mg tablet RxNorm: 898252 1 Tablet(s) PO QHS 201605/30/2017 Inactive propranolol 60 mg tablet RxNorm: 344316 1 Tablet(s) PO BID repl aces 40mg dose 09/19/2016 06/26/2017 Inactive Ativan 0.5 mg tablet RxNorm: 759819 1 Tablet(s) PO TID 08/20/2016 Inactive omeprazole 40 mg capsule,delayed release RxNorm: 969359 1 Capsule(s) PO BID TAKE ONE CAPSULE BY MOUTH TWICE DAILY 08/20/2016 05/30/2017 Inactive amitriptyline 50 mg tablet RxNorm: 777704 1 Tablet(s) PO QHS 201609/18/2016 Inactive pramipexole 1 mg tablet RxNorm: 779351 1 Tablet(s) PO Q PM for restless legs--replaces requip 07/23/2016 11/25/2016 Inactive Amaryl 2 mg tablet RxNorm: 231395 1 Tablet(s) PO BID 07/23/201612/27 Inactive propranolol 40 mg tablet RxNorm: 178636 1 Tablet(s) PO BID 07/13/19 17 09/18/2016 Inactive Ativan 0.5 mg tablet RxNorm: 894069 1 Tablet(s) PO QID 06/19/2016 Inactive Amaryl 2 mg tablet RxNorm: 231315 1 Tablet(s) PO BID 06/19/201607/22 Inactive Ativan 0.5 mg tablet RxNorm: 966491 1 Tablet(s) PO QID 06/19/2016 Inactive buspirone 5 mg tablet RxNorm: 317544 1 Tablet(s) PO TID 06/19/2016 Inactive Ativan 0.5 mg tablet RxNorm: 054513 1 Tablet(s) PO BID 05/24/2016 Inactive buspirone 5 mg tablet RxNorm: 266924 1 Tablet(s) PO TID 05/23/2016 Inactive Macrobid 100 mg capsule RxNorm: 880913 1 Capsule(s) PO QOD 05/03/19 17 10/07/2016 Inactive pramipexole 1 mg tablet RxNorm: 658584 Tablet(s) 1 Tabl et(s) PO QPM for restless legs--replaces requip 04/26/2016 06/24/2016 Inactive propranolol 40 mg tablet RxNorm: 534002 TAKE ONE TABLET BY MOUT H TWICE DAILY 04/26/2016 06/24/2016 Inactive Detrol LA 4 mg capsule,extended release RxNorm: 330907 1 Capsul e(s) PO QHS 04/03/2016 05/02/2016 Inactive prednisone 20 mg tablet RxNorm: 338162 1 Tablet(s) PO QD 02/29/2016 0 03/04/2016 Inactive Actos 30 mg tablet RxNorm: 698481 TAKE ONE TABLET BY MOUTH ONCE DAILY 02/27/2016 12/19/2016 Inactive clindamycin 300 mg capsule RxNorm: 789748 1 Capsule(s) PO TID 02/0102/08/2016 Inactive Flagyl 500 mg tablet RxNorm: 108071 1 Tablet(s) PO BID 02/02/201609/2015 Inactive omeprazole 40 mg capsule,delayed release RxNorm: 829771 TAKE ONE CAPSULE BY MOUTH TWICE DAILY 01/15/2016 07/12/2016 Inactive gabapentin 300 mg capsule RxNorm: 974613 1 Capsule(s) PO QAM an d 2 po q HS 01/05/2016 06/18/2016 Inactive gabapentin 300 mg capsule RxNorm: 273256 1 Capsule(s) P O BID 1 Capsule(s) PO QHS 12/05/2015 01/04/2016 Inactive cyclobenzaprine 10 mg tablet RxNorm: 481469 1 Tablet(s) PO TID for spasm as needed for muscle spasm 12/05/2015 06/18/2016 Inactive ciprofloxacin 250 mg tablet RxNorm: 017386 1 Tablet(s) PO BID 12/0412/14/2015 Inactive pramipexole 1 mg tablet RxNorm: 235495 Tablet(s) 1 Tabl et(s) PO QPM for restless legs--replaces requip 11/07/2015 11/26/2016 Inactive Januvia 100 mg tablet RxNorm: 151114 1 Tablet(s) PO QD 10/26/201504/2015 Inactive propranolol 40 mg tablet RxNorm: 610350 TAKE ONE TABLET BY MOUT H TWICE DAILY 10/25/2015 04/21/2016 Inactive gabapentin 300 mg capsule RxNorm: 919000 1 Capsule(s) PO QHS 201512/04/2015 Inactive Cipro 500 mg tablet RxNorm: 465664 1 Tablet(s) PO BID 10/05/201511/2015 Inactive pramipexole 1 mg tablet RxNorm: 602063 Tablet(s) 1 Tabl et(s) PO QPM for restless legs--replaces requip 10/04/2015 11/02/2015 Inactive propranolol 40 mg tablet RxNorm: 058746 TAKE ONE TABLET BY MOUT H TWICE DAILY 09/26/2015 10/24/2015 Inactive Amaryl 2 mg tablet RxNorm: 080205 1 Tablet(s) PO QD 09/15/20152016 Inactive gabapentin 300 mg capsule RxNorm: 997062 1 Capsule(s) PO QHS 201510/14/2015 Inactive buspirone 5 mg tablet RxNorm: 765078 1 Tablet(s) PO TID 09/15/2015 Inactive pramipexole 1 mg tablet RxNorm: 367240 Tablet(s) 1 Tabl et(s) PO QPM for restless legs--replaces requip 09/08/2015 10/03/2015 Inactive pramipexole 1 mg tablet RxNorm: 681199 1 Tablet(s) PO Q PM for restless legs--replaces requip 08/08/2015 09/08/2015 Inactive Amaryl 2 mg tablet RxNorm: 173064 1 Tablet(s) PO QD 07/07/20152015 Inactive pramipexole 1 mg tablet RxNorm: 616351 1 Tablet(s) PO Q PM for restless legs--replaces requip 07/05/2015 08/03/2015 Inactive ropinirole 2 mg tablet RxNorm: 822212 TAKE ONE TABLET BY MOUTH TWICE DAILY 05/09/2015 09/14/2015 Inactive Diflucan 100 mg tablet RxNorm: 835899 1 Tablet(s) PO QD 03/30/2015 Inactive propranolol 40 mg tablet RxNorm: 739066 1 Tablet(s) PO BID 02/24/20 15 08/21/2015 Inactive [SAVINGS FOR UNINSURED PATIE NTS -- BIN:383427, PCN: ASPROD1, Group: [id number], ID# [id number], Process claim through MedImpact, for questions: . THIS IS NOT INSURANCE.] Flagyl 500 mg tablet RxNorm: 309285 1 Tablet(s) PO BID 02/03/201502/2015 Inactive Cipro 500 mg tablet RxNorm: 058163 1 Tablet(s) PO BID 02/03/201502/01 Inactive Carafate 1 gram tablet RxNorm: 351783 1 Tablet(s) PO QID make i nto slurry 02/03/2015 09/14/2015 Inactive ondansetron HCl 4 mg tablet RxNorm: 216799 1 Tablet(s) PO Q4H as needed for nausea 12/29/2014 01/04/2016 Inactive Diflucan 100 mg tablet RxNorm: 194356 1 Tablet(s) PO QD 12/29/2014 Inactive Keflex 500 mg capsule RxNorm: 847058 1 Capsule(s) PO TID 12/29/2014 1 03/09/2014 Inactive omeprazole 40 mg capsule,delayed release RxNorm: 577889 1 Capsu le(s) PO BID 12/27/2014 12/21/2015 Inactive [SAVINGS FOR UNINSUR ED PATIENTS -- BIN:812082, PCN: ASPROD1, Group: AME08, ID# [id number], Process claim through MedImpact, for questions: . THIS IS NOT INSURANCE.] ropinirole 2 mg tablet RxNorm: 449581 1 Tablet(s) PO BID 09/29/2014 0 03/27/2015 Inactive [SAVINGS FOR UNINSURED PATIENTS -- BIN:0 96701, PCN: ASPROD1, Group: AME08, ID# [id number], Process claim through MedImpact, for questions: . THIS IS NOT INSURANCE.] buspirone 5 mg tablet RxNorm: 154501 1 Tablet(s) PO TID 09/17/2014 Inactive ropinirole 2 mg tablet RxNorm: 638699 1 Tablet(s) PO BID 09/02/2014 0 09/28/2014 Inactive [SAVINGS FOR UNINSURED PATIENTS -- BIN:0 69533, PCN: ASPROD1, Group: AME08, ID# [id number], Process claim through MedImpact, for questions: . THIS IS NOT INSURANCE.] Zyrtec 10 mg tablet RxNorm: 1144114 1 Tablet(s) PO QD 09/02/201412/02 Inactive propranolol 40 mg tablet RxNorm: 155023 1 Tablet(s) PO BID 07/21/19 15 02/23/2015 Inactive [SAVINGS FOR UNINSURED PATIE NTS -- BIN:858365, PCN: ASPROD1, Group: [id number], ID# [id number], Process claim through MedImpact, for questions: . THIS IS NOT INSURANCE.] ropinirole 2 mg tablet RxNorm: 837155 1 Tablet(s) PO QHS 05/14/2014 0 09/01/2014 Inactive [SAVINGS FOR UNINSURED PATIENTS -- BIN:0 01762, PCN: ASPROD1, Group: AME08, ID# [id number], Process claim through MedImpact, for questions: . THIS IS NOT INSURANCE.] cyclobenzaprine 10 mg tablet RxNorm: 035908 1 Tablet(s) PO QHS for spasm 04/06/2014 09/01/2014 Inactive ipratropium-albuterol 0.5 mg-3 mg(2.5 mg base)/3 mL ne bulization soln RxNorm: 1026818 1 Unit Dose INH Q4H 03/16/2014 No Stop Date Active [SAVINGS FOR UNINSURED PATIENTS -- BIN:207797, PCN: ASPROD1, Group: AME08, ID# [id number], Process claim through MedImpact, for questions: . THIS IS NOT INSURANCE.] prednisone 20 mg tablet RxNorm: 768272 1 Tablet(s) PO BID 03/09/2014 03/15/2014 Inactive [SAVINGS FOR UNINSURED PATIENTS -- BIN:0 08542, PCN: ASPROD1, Group: AME08, ID# [id number], Process claim through MedImpact, for questions: . THIS IS NOT INSURANCE.] ipratropium-albuterol 0.5 mg-3 mg(2.5 mg base)/3 mL ne bulization soln RxNorm: 8292673 1 Unit Dose INH Q4H 03/09/2014 03/15/2014 Inactive [SAVINGS FOR UNINSURED PATIENTS -- BIN:310870, PCN: ASPROD1, Group: AME08, ID# [id number], Process claim through MedImpact, for questions: . THIS IS NOT INSURANCE.] Levaquin 500 mg tablet RxNorm: 059920 1 Tablet(s) PO QD 03/09/2014 Inactive [SAVINGS FOR UNINSURED PATIENTS -- BIN:0 48587, PCN: ASPROD1, Group: [id number], ID# [id number], Process claim through MedImpact, for questions: . THIS IS NOT INSURANCE.] Carafate 1 gram tablet RxNorm: 483649 1 Tablet(s) PO AC & HS ma ke into slurry 02/09/2014 09/01/2014 Inactive [SAVINGS FOR UNINSUR ED PATIENTS -- BIN:520165, PCN: ASPROD1, Group: AME08, ID# [id number], Process claim through MedImpact, for questions: . THIS IS NOT INSURANCE.] Fioricet 50 mg-300 mg-40 mg capsule RxNorm: 1198267 1-2 Capsule(s) PO Q4H as needed for headache --max of 6 a day 02/09/2014 09/01/2014 Inactive [SAVINGS FOR UNINSURED PATIENTS -- BIN:312306, PCN: ASPROD1, Group: AME08, ID# [id number], Process claim through MedImpact, for questions: . THIS IS NOT INSURANCE.] propranolol 40 mg tablet RxNorm: 000136 1 Tablet(s) PO BID 12/08/19 14 06/04/2014 Inactive [SAVINGS FOR UNINSURED PATIE NTS -- BIN:005960, PCN: ASPROD1, Group: AME08, ID# [id number], Process claim through MedImpact, for questions: . THIS IS NOT INSURANCE.] buspirone 5 mg tablet RxNorm: 208668 1 Tablet(s) PO TID 12/02/2013 Inactive omeprazole 40 mg capsule,delayed release RxNorm: 282468 1 Capsu le(s) PO BID 11/25/2013 11/19/2014 Inactive [SAVINGS FOR UNINSUR ED PATIENTS -- BIN:118714, PCN: ASPROD1, Group: AME08, ID# [id number], Process claim through MedImpact, for questions: . THIS IS NOT INSURANCE.] ropinirole 2 mg tablet RxNorm: 435146 1 Tablet(s) PO QHS 11/10/2013 0 05/08/2014 Inactive [SAVINGS FOR UNINSURED PATIENTS -- BIN:0 47079, PCN: ASPROD1, Group: AME08, ID# [id number], Process claim through MedImpact, for questions: . THIS IS NOT INSURANCE.] Cipro 500 mg tablet RxNorm: 582779 1 Tablet(s) PO BID 10/21/201312/03 Inactive [SAVINGS FOR UNINSURED PATIENTS -- BIN:0 96071, PCN: ASPROD1, Group: AME08, ID# [id number], Process claim through MedImpact, for questions: . THIS IS NOT INSURANCE.] hydroxyzine HCl 25 mg tablet RxNorm: 953636 1 Tablet(s) PO Q4-6 H as needed 10/05/2013 01/04/2016 Inactive [SAVINGS FOR UNINSUR ED PATIENTS -- BIN:800172, PCN: ASPROD1, Group: [id number], ID# [id number], Process claim through [employer], for questions: . THIS IS NOT INSURANCE.] triamcinolone acetonide 0.1 % topical cream RxNorm: 6061991 Appl ication TOP BID 10/05/2013 09/01/2014 Inactive [SAVINGS FOR UNINSUR ED PATIENTS -- BIN:[id number], PCN: ASPROD1, Group: [id number], ID# [id number], Process claim through [employer], for questions: . THIS IS NOT INSURANCE.] albuterol sulfate HFA 90 mcg/actuation aerosol inhaler RxNor m: 2538723 2 Puff(s) INH Q4H as needed for cough 10/01/2013 12/22/2013 Inactive [MAKSIM INGS FOR UNINSURED PATIENTS -- BIN:[id number], PCN: ASPROD1, Group: [id number], ID# [id number], Process claim through [employer], for questions: . THIS IS NOT INSURANCE.] propranolol 40 mg tablet RxNorm: 605709 1 Tablet(s) PO BID 09/02/19 14 11/29/2013 Inactive [SAVINGS FOR UNINSURED PATIE NTS -- BIN:081935, PCN: ASPROD1, Group: [id number], ID# [id number], Process claim through [employer], for questions: . THIS IS NOT INSURANCE.] propranolol 40 mg tablet RxNorm: 846676 1 Tablet(s) PO BID 08/05/19 14 08/31/2013 Inactive [SAVINGS FOR UNINSURED PATIE NTS -- BIN:737057, PCN: ASPROD1, Group: [id number], ID# [id number], Process claim through [employer], for questions: . THIS IS NOT INSURANCE.] Toprol XL 50 mg tablet,extended release RxNorm: 035832 1 Tablet (s) PO QHS 07/23/2013 08/03/2013 Inactive Macrobid 100 mg capsule RxNorm: 916903 1 Capsule(s) PO BID 07/04/19 14 07/09/2013 Inactive Toprol XL 50 mg tablet,extended release RxNorm: 774141 1 Tablet (s) PO QHS 05/28/2013 06/26/2013 Inactive ciprofloxacin 500 mg tablet RxNorm: 054262 1 Tablet(s) PO BID 05/2706/02/2013 Inactive Bystolic 5 mg tablet RxNorm: 933147 1 Tablet(s) PO QD 05/27/201305/03 Inactive ropinirole 2 mg tablet RxNorm: 726217 1 Tablet(s) PO QHS 04/22/2013 0 11/09/2013 Inactive Cipro 250 mg tablet RxNorm: 137413 1 Tablet(s) PO BID 04/06/201311/2013 Inactive ropinirole 2 mg tablet RxNorm: 733867 1 Tablet(s) PO QHS 02/17/2013 0 04/21/2013 Inactive Amaryl 2 mg tablet RxNorm: 172195 1 Tablet(s) PO QAM 11/11/201211/10 Inactive Amaryl 2 mg tablet RxNorm: 313030 1 Tablet(s) PO QAM 11/11/201204/05 Inactive omeprazole 40 mg capsule,delayed release RxNorm: 659907 1 Capsu le(s) PO BID 08/14/2012 08/08/2013 Inactive Bystolic 5 mg tablet RxNorm: 446622 1 Tablet(s) PO QD 08/14/201205/03 Inactive propranolol 60 mg tablet RxNorm: 162441 Tablet(s) PO TAKE 1 TAB LET TWICE DAILY 08/01/2012 09/01/2012 Inactive Bystolic 5 mg tablet RxNorm: 174013 1 Tablet(s) PO QD 07/21/201207/02 Inactive Bystolic 5 mg tablet RxNorm: 602223 1 Tablet(s) PO QD 07/21/201207/03 Inactive Prilosec 40 mg capsule,delayed release RxNorm: 162576 1 Capsule (s) PO BID 06/24/2012 07/21/2012 Inactive buspirone 10 mg tablet RxNorm: 989473 1 Tablet(s) PO TID 05/08/2012 0 05/23/2016 Inactive Valium 10 mg tablet RxNorm: 346692 1 Tablet(s) PO BID 04/02/201207/03 Inactive Endocet 10 mg-325 mg tablet RxNorm: 8499801 1 Tablet(s) PO QID 03/0607/21/2012 Inactive as needed for severe pain Valium 10 mg tablet RxNorm: 315415 1 Tablet(s) PO BID 02/27/2012 No S top Date Active Endocet 10 mg-325 mg tablet RxNorm: 5308951 1 Tablet(s) PO QID 02/0203/27/2012 Inactive as needed for severe pain Endocet 10 mg-325 mg tablet RxNorm: 7022489 1 Tablet(s) PO QID 01/0302/26/2012 Inactive as needed for severe pain Valium 10 mg tablet RxNorm: 150398 1 Tablet(s) PO BID 01/29/2012 No S top Date Active Protonix 40 mg tablet,delayed release RxNorm: 402463 1 Tablet(s ) PO QD 01/28/2012 07/21/2012 Inactive metformin ER 500 mg tablet,extended release 24 hr RxNorm: 86 0977 1 Tablet(s) PO QD 12/26/2011 07/20/2012 Inactive Trazadone 150 mg Tablet RxNorm: 1 Tablet(s) PO QHS prn sleep 1 04/23/2012 Inactive Endocet 10 mg-325 mg tablet RxNorm: 0932056 1 Tablet(s) PO QID 12/0301/24/2012 Inactive as needed for severe pain Nexium 40 mg capsule,delayed release RxNorm: 581204 1 Capsule(s ) PO QD 12/26/2011 01/27/2012 Inactive Symbicort 160 mcg-4.5 mcg/actuation HFA Aerosol Inhaler RxNo rm: 4302865 2 Puff(s) INH BID 12/04/2011 07/21/2012 Inactive Endocet 10 mg-325 mg tablet RxNorm: 9297090 1 Tablet(s) PO QID 11/0312/25/2011 Inactive as needed for severe pain metformin ER 500 mg tablet,extended release 24 hr RxNorm: 86 0977 1 Tablet(s) PO QD 11/20/2011 12/19/2011 Inactive metformin ER 500 mg tablet,extended release 24 hr RxNorm: 86 0977 1 Tablet(s) PO QD 11/20/2011 11/19/2011 Inactive amitriptyline 100 mg tablet RxNorm: 900378 Tablet(s) PO QHS 1 a nd 1/2 tabs QHS 11/12/2011 11/13/2011 Inactive Valium 10 mg tablet RxNorm: 115219 1 Tablet(s) PO BID 11/09/2011 No S top Date Active Endocet 10 mg-325 mg tablet RxNorm: 5267888 1 Tablet(s) PO QID 10/0211/14/2011 Inactive as needed for severe pain Aricept 10 mg Tab RxNorm: 459230 1 Tablet(s) PO QD 10/05/2011 013 Inactive Valium 10 mg tablet RxNorm: 058824 1 Tablet(s) PO BID 10/05/2011 No S top Date Active Endocet 10 mg-325 mg Tab RxNorm: 8127114 1 Tablet(s) PO QID 012 10/09/2011 Inactive as needed for severe pain Aricept 10 mg Tab RxNorm: 819633 1 Tablet(s) PO QD 08/14/2011 012 Inactive Endocet 10 mg-325 mg Tab RxNorm: 1315867 1 Tablet(s) PO QID 012 08/31/2011 Inactive as needed for severe pain Valium 10 mg Tab RxNorm: 338978 1 Tablet(s) PO BID 08/02/2011 No Stop Date Active propranolol 60 mg tablet RxNorm: 183820 1 Tablet(s) PO BID 07/26/19 12 09/11/2011 Inactive amitriptyline 100 mg tablet RxNorm: 804678 Tablet(s) PO QHS 1 a nd /2 tabs QHS 06/20/2011 09/11/2011 Inactive buspirone 10 mg tablet RxNorm: 880072 1 Tablet(s) PO BID 06/18/2011 0 09/15/2011 Inactive propranolol 60 mg Tab RxNorm: 235399 1 Tablet(s) PO BID 06/18/2011 Inactive gabapentin 800 mg Tab RxNorm: 416286 1 Tablet(s) PO BID 06/18/2011 Inactive ropinirole 2 mg tablet RxNorm: 401071 1 Tablet(s) PO QHS 05/29/2011 0 08/26/2011 Inactive trimethoprim 100 mg Tab RxNorm: 978076 1 Tablet(s) PO QHS 05/29/2011 07/21/2012 Inactive Endocet 10 mg-325 mg Tab RxNorm: 8758231 1 Tablet(s) PO QID 012 2011 Inactive as needed for severe pain Valium 10 mg Tab RxNorm: 960303 1 Tablet(s) PO QHS N eed to take med as prescribed. this is a 40 day RX. No early fills. 05/17/2011 05/20/2018 Inactive propranolol 60 mg Tab RxNorm: 053439 1 Tablet(s) PO BID 04/16/2011 Inactive Neurontin 800 mg Tab RxNorm: 402087 1 Tablet(s) PO QHS 04/05/201103/2011 Inactive Endocet 10 mg-325 mg Tab RxNorm: 9084941 1 Tablet(s) PO QID 012 05/02/2011 Inactive as needed for severe pain oxycodone-acetaminophen 10 mg-325 mg tablet RxNorm: 1655038 1 Ta blet(s) PO Q4H 03/28/2011 05/19/2012 Inactive Valium 10 mg Tab RxNorm: 759865 1 Tablet(s) PO QHS 03/28/2011 012 Inactive buspirone 10 mg Tab RxNorm: 741163 1 Tablet(s) PO BID 03/27/201106/02 Inactive propranolol 60 mg Tab RxNorm: 676263 1 Tablet(s) PO BID 03/19/2011 Inactive Klor-Con M20 20 mEq Tab RxNorm: 2674418 1 Tablet(s) PO QD 03/19/2011 07/21/2012 Inactive Aricept 10 mg Tab RxNorm: 733506 1 Tablet(s) PO QD 02/27/2011 012 Inactive propranolol 60 mg Tab RxNorm: 791188 1 Tablet(s) PO BID 02/19/2011 Inactive omeprazole 40 mg capsule,delayed release RxNorm: 840185 1 Capsu le(s) PO BID 01/24/2011 05/23/2011 Inactive clindamycin 300 mg capsule RxNorm: 312550 1 Capsule(s) PO TID 01/2402/02/2011 Inactive propranolol 60 mg Tab RxNorm: 570083 1 Tablet(s) PO BID 01/22/2011 No Stop Date Active nystatin 100,000 unit/g Topical Cream RxNorm: 466223 Applicatio n TOP BID 01/15/2011 01/14/2011 Inactive to rash for 2-4 week s Diflucan 200 mg Tab RxNorm: 178560 1 Tablet(s) PO QD 01/15/201101/28 Inactive buspirone 10 mg Tab RxNorm: 806413 1 Tablet(s) PO BID 01/08/201103/05 Inactive Valium 10 mg Tab RxNorm: 102233 1 Tablet(s) PO QHS 01/05/2011 012 Inactive Diflucan 200 mg Tab RxNorm: 736886 1 Tablet(s) PO QD 01/01/201101/14 Inactive Diflucan 200 mg Tab RxNorm: 276767 1 Tablet(s) PO QD 12/18/201012/31 Inactive Valium 10 mg Tab RxNorm: 770719 1 Tablet(s) PO QHS 12/12/2010 011 Inactive Diflucan 200 mg Tab RxNorm: 265341 1 Tablet(s) PO QD 12/07/201012/18 Inactive Aricept 10 mg Tab RxNorm: 488778 1 Tablet(s) PO QD 11/20/2010 011 Inactive ropinirole 1 mg Tab RxNorm: 580275 1 Tablet(s) PO QHS 11/16/201005/03 Inactive enalapril maleate 5 mg Tab RxNorm: 889052 1 Tablet(s) PO QD 011 05/20/2018 Inactive buspirone 10 mg Tab RxNorm: 916430 1 Tablet(s) PO BID 11/16/201012/02 Inactive Valium 10 mg Tab RxNorm: 086752 1 Tablet(s) PO QHS 11/07/2010 011 Inactive Pyridium 100 mg Tab RxNorm: 4858825 1 Tablet(s) PO TID 11/02/201004/2010 Inactive Macrobid 100 mg Cap RxNorm: 0696233 1 Capsule(s) PO BID 11/02/2010 Inactive buspirone 10 mg Tab RxNorm: 405859 1 Tablet(s) PO QHS 10/18/201005/02 Inactive propranolol 60 mg Tab RxNorm: 615510 1 Tablet(s) PO BID 09/18/2010 Inactive Valium 10 mg Tab RxNorm: 077833 1 Tablet(s) PO QHS 09/05/2010 011 Inactive Aricept 10 mg Tab RxNorm: 650654 1 Tablet(s) PO QD 08/14/2010 011 Inactive Valium 10 mg Tab RxNorm: 598532 1 Tablet(s) PO QHS 06/26/2010 011 Inactive ropinirole 1 mg Tab RxNorm: 024519 1 Tablet(s) PO QHS 06/19/201010/02 Inactive omeprazole 40 mg Cap, delayed release RxNorm: 032841 1 Capsule( s) PO QD 06/07/2010 10/04/2010 Inactive Endocet 10 mg-325 mg Tab RxNorm: 8928370 1 Tablet(s) PO QID as needed for severe pain 06/07/2010 03/07/2011 Inactive Endocet 10 mg-325 mg Tab RxNorm: 7032619 1 Tablet(s) PO QID as needed for severe pain 05/04/2010 06/02/2010 Inactive Valium 10 mg Tab RxNorm: 967908 1 Tablet(s) PO QHS 05/01/2010 011 Inactive propranolol 60 mg Tab RxNorm: 838657 1 Tablet(s) PO BID 04/03/2010 Inactive Valium 10 mg Tab RxNorm: 375045 1 Tablet(s) PO QHS 03/28/2010 011 Inactive omeprazole 40 mg Cap, Delayed Release RxNorm: 660174 1 Capsule( s) PO QD 03/28/2010 06/06/2010 Inactive Endocet 10 mg-325 mg Tab RxNorm: 9049590 1 Tablet(s) PO QID prn ari n 03/27/2010 05/20/2018 Inactive Valium 10 mg Tab RxNorm: 532231 1 Tablet(s) PO QHS 02/20/2010 011 Inactive Diflucan 100 mg Tab RxNorm: 725860 1 Tablet(s) PO BID 01/23/2010 1203/2009 Inactive Diflucan 100 mg Tab RxNorm: 437820 1 Tablet(s) PO BID 01/05/201001/02 Inactive Aricept 10 mg Tab RxNorm: 730277 1 Tablet(s) PO QD 12/01/2009 011 Inactive OxyContin 20 mg 12 hr Tab RxNorm: 1949117 1 Tablet(s) PO BID 200904/05/2010 Inactive oxycodone-acetaminophen 10 mg-325 mg Tab RxNorm: 0475420 1 Table t(s) PO Q4H 11/22/2009 11/26/2009 Inactive Phenergan 25 mg Tab RxNorm: 893467 1 Tablet(s) PO PRN MIGRAINE 11/0303/07/2011 Inactive Demerol 100 mg Tab RxNorm: 422237 1 Tablet(s) PO PRN MIGRAINE 11/2203/07/2011 Inactive Oxycodone-Acetaminophen 10 mg-325 mg Tab RxNorm: 1983492 1 Table t(s) PO Q4H 10/11/2009 10/15/2009 Inactive Percocet 10 mg-325 mg Tab RxNorm: 1188181 1 Tablet(s) PO Q4H 200910/24/2009 Inactive propranolol 60 mg Tab RxNorm: 382411 1 Tablet(s) PO BID 08/29/2009 Inactive Valium 10 mg Tab RxNorm: 526309 1 Tablet(s) PO QHS 08/16/2009 010 Inactive Keflex 500 mg Cap RxNorm: 333590 1 Capsule(s) PO BID 07/25/200907/31 Inactive Hydroxyzine 25 mg Tab RxNorm: 478094 1 Tablet(s) PO TID 07/25/2009 Inactive Prednisone 20 mg Tab RxNorm: 921032 1 Tablet(s) PO BID 07/25/2009 Inactive Demerol 100 mg Tab RxNorm: 883196 1 Tablet(s) PO PRN MIGRAINE 07/25 No Stop Date Active Ropinirole 1 mg Tab RxNorm: 786627 1 Tablet(s) PO HS 07/20/200902/14 Inactive Valium 10 mg Tab RxNorm: 474377 1 Tablet(s) PO QHS 07/18/2009 010 Inactive Endocet 10 mg-325 mg Tab RxNorm: 0135230 1 Tablet(s) PO TID 010 07/07/2009 Inactive Demerol 100 mg Tab RxNorm: 438370 1 Tablet(s) PO PRN MIGRAINE 06/08 No Stop Date Active Ropinirole 1 mg Tab RxNorm: 404387 1 Tablet(s) PO HS 05/16/200907/14 Inactive ipratropium-albuterol 0.5 mg-3 mg(2.5 mg base)/3 mL ne bulization soln RxNorm: 3719638 1 Unit Dose INH Q4H as needed No Start Date Active MagOx 400 mg (241.3 mg magnesium) tablet RxNorm: 340257 1 Table t(s) PO BID No Start Date Active Vitamin B12 1000mcg Tablet RxNorm: 1 Tablet(s) PO QD No Start Date Active Vitamin D3 5,000 unit tablet RxNorm: 939251 1 Tablet(s) PO QD No Star t Date Active Tylenol Arthritis Pain 650 mg tablet,extended release RxNorm : 0555164 1 Tablet(s) PO Q4H No Start Date Active Lotrimin AF 2 % topical powder RxNorm: 166391 1 Application TOP BID No Start Date Active enalapril maleate 5 mg Tab RxNorm: 018333 1 Tablet(s) PO QD No Star t Date 07/20/2012 Inactive Demerol 100 mg Tab RxNorm: 585490 Tablet(s) PO PRN MIGRAINE No Star t Date 06/02/2009 Inactive metformin 500 mg tablet RxNorm: 938746 1 Tablet(s) PO QD No Start D ate 04/05/2013 Inactive Breo Ellipta 100 mcg-25 mcg/dose powder for inhalation RxNor m: 8467448 1 Puff(s) INH BID No Start Date 01/04/2016 Inactive Mag-Oxide 400 mg Tab RxNorm: 231611 1 Tablet(s) PO QD No Start Date 0 07/21/2012 Inactive Cipro 500 mg Tab RxNorm: 555694 1 Tablet(s) PO QD No Start Date 04/05 Inactive Ativan 0.5 mg tablet RxNorm: 942150 1 Tablet(s) PO TID as needed No Start Date 05/06/2019 Inactive melatonin 3 mg tablet RxNorm: 759101 2 Tablet(s) PO QHS No Start Da te 08/19/2018 Inactive buspirone 10 mg Tab RxNorm: 363280 1 Tablet(s) PO QD No Start Date Inactive sucralfate 100 mg/mL Oral Susp RxNorm: 490618 2 Teaspoon(s) PO QID No Start Date 07/21/2012 Inactive hydrocodone 5 mg-acetaminophen 325 mg tablet RxNorm: 685522 1 Tablet(s) PO Q4H as needed No Start Date 08/19/2018 Inactive Amaryl 2 mg tablet RxNorm: 145901 1 Tablet(s) PO BID No Start Date Inactive OxyContin 20 mg 12 hr Tab RxNorm: 5680303 1 Tablet(s) PO BID No Sta rt Date 11/27/2009 Inactive propranolol 40 mg tablet RxNorm: 762589 1 Tablet(s) PO QID No Start Date 01/19/2018 Inactive Trazadone 150 mg Tablet RxNorm: 1-2 Tablet(s) PO QHS prn sleep No Start Date 08/09/2010 Inactive propranolol 60 mg Tab RxNorm: 545565 1/2 Tablet(s) PO BID No Start Date 01/21/2011 Inactive insulin NPH and regular human subcutaneous RxNorm: 3877430 subcu taneous No Start Date 11/20/2018 Inactive Ativan 0.5 mg tablet RxNorm: 892087 1 Tablet(s) PO QID No Start Date 06/18/2016 Inactive Vasotec 5 mg Tab RxNorm: 737208 1 Tablet(s) PO BID No Start Date 06/2011 Inactive Toprol XL 50 mg tablet,extended release RxNorm: 613290 1 Tablet (s) PO BID No Start Date 04/05/2013 Inactive Ativan 0.5 mg tablet RxNorm: 158770 1 Tablet(s) PO TID No Start Date 05/25/2016 Inactive Klor-Con M20 20 mEq Tab RxNorm: 4910986 1 Tablet(s) PO QD No Start Date 03/19/2011 Inactive sumatriptan 100 mg tablet RxNorm: 154789 1 Tablet(s) PO at headache onset--repeat in 2hrs if remains No Start Date 07/21/2012 Inactive propranolol 60 mg Tab RxNorm: 197466 1 Tablet(s) PO BID No Start Da te 08/28/2009 Inactive Cholestyramine Light 4 gram Oral Powder RxNorm: 7285280 1 Unit Dose PO QD in water No Start Date 07/21/2012 Inactive nystatin 100,000 unit/g Topical Powder RxNorm: 899213 Applicati on TOP BID No Start Date 07/21/2012 Inactive vitamin [id number] acid sublingual RxNorm: sublingual No Start Date 07/05/2013 Inactive cyclobenzaprine 5 mg tablet RxNorm: 754553 1/2-1 Tablet (s) PO TID as needed for muscle spasm No Start Date 07/18/2017 Inactive tramadol 50 mg tablet RxNorm: 865608 2 Tablet(s) PO TID as need ed for pain No Start Date 09/01/2014 Inactive aspirin 81 mg Tab RxNorm: 844231 1 Tablet(s) PO QOD No Start Date 04/2013 Inactive Vitamin B12 1000mcg Tablet RxNorm: 1 Tablet(s) PO QD No Start Date 07/18/2017 Inactive cholestyramine (with sugar) 4 gram oral powder RxNorm: 85032 3 1 Unit(s) PO QD as needed No Start Date 05/20/2018 Inactive ProAir HFA 90 mcg/Actuation Aerosol Inhaler RxNorm: 630335 2 Puff(s) INH Q4H prn shortness of breath No Start Date 07/21/2012 Inactive pravastatin 10 mg Tab RxNorm: 774829 1 Tablet(s) PO QD No Start Date 07/21/2012 Inactive gabapentin 800 mg Tab RxNorm: 932649 1 Tablet(s) PO BID No Start Da te 06/03/2011 Inactive Endocet 10 mg-325 mg Tab RxNorm: 1331405 1 Tablet(s) PO TID No Star t Date 06/02/2009 Inactive Naproxen 500 mg Tab RxNorm: 134551 1 Tablet(s) PO BID No Start Date 0 04/05/2010 Inactive Valium 10 mg Tab RxNorm: 493448 1 Tablet(s) PO BID No Start Date 07/04 Inactive enalapril maleate 5 mg Tab RxNorm: 065299 1 Tablet(s) PO QD No Star t Date 11/15/2010 Inactive doxepin 10 mg capsule RxNorm: 3417510 2 Capsule(s) PO QHS No Start Date 09/17/2018 Inactive MS Contin 15 mg Tab RxNorm: 604227 1 Tablet(s) PO BID No Start Date 0 09/18/2010 Inactive buspirone 5 mg tablet RxNorm: 795779 1 Tablet(s) PO TID No Start Da te 12/01/2013 Inactive Magnet 3 Fish Oil Cap RxNorm: 1 Capsule(s) PO QD No Start Date 07/03 Inactive enalapril maleate 5 mg Tab RxNorm: 662271 1/2 Tablet(s) PO QD No St art Date 03/07/2011 Inactive Lyrica 75 mg capsule RxNorm: 459003 1 Capsule(s) PO QHS No Start Da te 02/08/2014 Inactive Lopressor 100 mg tablet RxNorm: 535630 1 Tablet(s) PO BID No Start Date 06/08/2018 Inactive Lantus Solostar U-100 Insulin 100 unit/mL (3 mL) subcu taneous pen RxNorm: 452371 45 Unit(s) SQ QAM No Start Date 05/20/2018 Inactive aspirin 81 mg tablet RxNorm: 884005 1 Tablet(s) PO QD No Start Date 0 09/14/2015 Inactive diltiazem CD 240 mg capsule,extended release 24 hr RxNorm: 8 59912 1 Capsule(s) PO QD No Start Date 05/25/2019 Inactive insulin NPH isophane U-100 human subcutaneous RxNorm: 704072 beckwith bcutaneous No Start Date 04/20/2019 Inactive sumatriptan 100 mg tablet RxNorm: 538066 1 Tablet(s) PO at headache onset. May repeat 1 in two hours if headache remains. Max of 2 per 24 hours No Start Date 04/01/2018 Inactive gabapentin 300 mg capsule RxNorm: 549124 1 Capsule(s) PO QHS No Sta rt Date 02/04/2018 Inactive Topamax 25 mg Tab RxNorm: 799429 Oral No Start Date 03/07/2011 In active Senokot-S 8.6 mg-50 mg Tab RxNorm: 0151998 1 Tablet(s) PO QD No Sta rt Date 03/07/2011 Inactive metformin ER 500 mg 24 hr tablet,extended release RxNorm: 18 50899 1 Tablet(s) PO QD No Start Date 05/20/2018 Inactive Symbicort 80 mcg-4.5 mcg/actuation HFA Aerosol Inhaler RxNor m: 6521387 2 Puff(s) INH BID No Start Date 04/05/2013 Inactive metoprolol tartrate 25 mg tablet RxNorm: 219086 1 Tablet(s) PO BID No Start Date 05/20/2019 Inactive propranolol 60 mg Tab RxNorm: 569998 1/2 Tablet(s) PO BID No Start Date 07/21/2012 Inactive metformin ER 500 mg 24 hr tablet,extended release RxNorm: 18 94676 2 Tablet(s) PO QD No Start Date 12/16/2017 Inactive Insulin Syringe 1 mL 29 gauge x 1/2" RxNorm: 2 s yringes daily with insulin Dx: E11.65 No Start Date 10/07/2018 Inactive Amitriptyline 75 mg Tab RxNorm: 918403 1 Tablet(s) PO QHS No Start Date 10/23/2009 Inactive donepezil 10 mg Tab RxNorm: 763068 1 Tablet(s) PO QD No Start Date Inactive Lantus Solostar U-100 Insulin 100 unit/mL (3 mL) subcu taneous pen RxNorm: 177809 36 Unit(s) SQ QAM No Start Date 12/24/2017 Inactive Miacalcin 200 unit/Actuation Nasal [place] Aerosol RxNorm: 261 204 1 [place] NASAL QD Alternate nostrils each day No Start Date 04/05/2010 Inactive Amitriptyline 150 mg Tab RxNorm: 650179 1 Tablet(s) PO QHS No Start Date 01/04/2010 Inactive Bystolic 5 mg tablet RxNorm: 292917 1 Tablet(s) PO QD No Start Date 0 08/13/2012 Inactive Aricept 10 mg Tab RxNorm: 909964 1 Tablet(s) PO QD No Start Date 11/03 Inactive Lantus Solostar U-100 Insulin 100 unit/mL (3 mL) subcu taneous pen RxNorm: 940151 50 Unit(s) SQ QAM No Start Date 08/27/2018 Inactive albuterol sulfate 2.5 mg/3 mL (0.083 %) Neb Solution RxNorm: 950288 1 Unit Dose INH QID as needed No Start Date 08/23/2015 Inactive Symbicort 160 mcg-4.5 mcg/actuation HFA Aerosol Inhaler RxNo rm: 6649009 2 Puff(s) INH BID No Start Date 12/03/2011 Inactive Savella 50 mg Tab RxNorm: 111333 1 Tablet(s) PO BID No Start Date 04/2010 Inactive amitriptyline 100 mg Tab RxNorm: 795152 1 1/2 Tablet(s) PO QHS No S tart Date 06/19/2011 Inactive nystatin 100,000 unit/g Topical Cream RxNorm: 945284 Ap plication TOP BID to rash for 2-4 weeks No Start Date 01/14/2011 Inactive Trelegy Ellipta 100 mcg-62.5 mcg-25 mcg powder for inhalatio n RxNorm: 3416164 1 Puff(s) INH QD No Start Date 12/16/2017 Inactive Lyrica 150 mg capsule RxNorm: 519218 1 Capsule(s) PO QHS No Start D ate 12/04/2015 Inactive sennosides 8.6 mg tablet RxNorm: 212370 1 Tablet(s) PO BID No Start Date 09/07/2018 Inactive metformin ER 500 mg tablet,extended release 24 hr RxNorm: 86 0975 1 Tablet(s) PO QD No Start Date 10/22/2017 Inactive Fish Oil 1,000 mg Cap RxNorm: 1 Capsule(s) PO QD No Start Date 06/2011 Inactive Zyrtec 10 mg Tab RxNorm: 1428906 1 Tablet(s) PO QD No Start Date 07/03 Inactive albuterol sulfate HFA 90 mcg/actuation aerosol inhaler RxNor m: 3567376 2 Puff(s) INH Q4H as needed for cough No Start Date 09/30/2013 Inactive trazodone 150 mg tablet RxNorm: 814859 1 Tablet(s) PO QHS No Start Date 07/21/2012 Inactive Spiriva with HandiHaler 18 mcg & inhalation capsules RxNorm: 853029 1 Capsule(s) INH QD No Start Date 04/05/2013 Inactive Coreg 3.125 mg Tab RxNorm: 533841 1 Tablet(s) PO BID No Start Date Inactive Phenergan 25 mg Tab RxNorm: 045839 Tablet(s) PO PRN MIGRAINE No Sta rt Date 11/21/2009 Inactive Vitamin D 50,000 unit Cap RxNorm: 1815206 1 Capsule(s) PO QW No Sta rt Date 03/07/2011 Inactive Januvia 100 mg tablet RxNorm: 590366 1 Tablet(s) PO QD No Start Date 10/25/2015 Inactive Eliquis 5 mg tablet RxNorm: 6848568 1 Tablet(s) PO BID No Start Date 08/19/2018 Inactive Advair Diskus 500 mcg-50 mcg/Dose for Inhalation RxNorm: 555778 1 INH BID No Start Date 07/21/2012 Inactive Vitamin D3 5,000 unit tablet RxNorm: 221827 1 Tablet(s) PO QD No St art Date 07/18/2017 Inactive Amaryl 2 mg tablet RxNorm: 241182 1 Tablet(s) PO QD No Start Date 06/2015 Inactive Actos 30 mg tablet RxNorm: 233220 1 Tablet(s) PO QD No Start Date Inactive promethazine 25 mg tablet RxNorm: 114035 1 Tablet(s) PO Q4H prn N/V No Start Date 07/21/2012 Inactive ProAir HFA 90 mcg/actuation Aerosol Inhaler RxNorm: 778943 2 Puff(s) INH Q4H prn dyspnea No Start Date 07/21/2012 Inactive Dexilant 60 mg Capsule RxNorm: 260450 1 Capsule(s) PO QD No Start D ate 01/27/2012 Inactive Lantus Solostar U-100 Insulin 100 unit/mL (3 mL) subcu taneous pen RxNorm: 322584 38 Unit(s) SQ QAM No Start Date 05/20/2018 Inactive Valium 10 mg Tab RxNorm: 767839 1 Tablet(s) PO QHS AND PRN No Start Date 10/24/2009 Inactive ZOFRAN ODT 8 mg disintegrating tablet RxNorm: 490683 1 Tablet(s ) PO Q6H No Start [...] Date S ervice Location MICROALBUMIN URINE RANDOM 98270 MICRL MG/L 14.9 MG/L Unknown MICROALBUMIN URINE RANDOM 83117 XM.ALB/CRE 6.1 MG/GCR Unknown MICROALBUMIN URINE RANDOM 33752 CREAT MG/D 243 MG/DL Unknown MICROALBUMIN URINE RANDOM 75396 CRE/100 2.43 G/L 03/05 Unknown PROTEIN/CREAT URINE WITH RATIO 93007|12742 PROT R U 14 MG/D L 04/01/2014 Unknown PROTEIN/CREAT URINE WITH RATIO 46665|99638 CREAT R U 254 MG/ DL 04/01/2014 Unknown PROTEIN/CREAT URINE WITH RATIO 77604|12893 XRATIO P/C 55 MG/ G 04/01/2014 Unknown URINALYSIS 92451 PROTEIN UR NEG 04/28/2010 Unknown URINALYSIS 83179 HEMGLBN UR NEG 04/28/2010 Unknown URINALYSIS 10680 GLUCOSE UR NEG 04/28/2010 Unknown URINALYSIS 14493 KETONES UR NEG 04/28/2010 Unknown URINALYSIS 08965 PH U 5.5 04/28/2010 Unknown URINALYSIS 94833 SP GR U 1.025 04/28/2010 Unknown URINALYSIS 22615 BILRUBN UR NEG 04/28/2010 Unknown URINALYSIS 27043 LEUKO UR 2+ 04/28/2010 Unknown URINALYSIS 79900 NITRITE UR NEG 04/28/2010 Unknown MICR CUL? [id number] WBC/HPF 6-10 04/28/2010 Unknown MICR CUL? [id number] RBC/HPF 0-5 04/28/2010 Unknown MICR CUL? [id number] HYAL CAST 16-25 04/28/2010 Unknown MICR CUL? [id number] SP TO YOLIE? NO 04/28/2010 Unknown MICR CUL? [id number] APPEAR UR NORMAL 04/28/2010 Unknown MICR CUL? [id number] SQ EPI/LPF FEW 04/28/2010 Unknown Procedures Procedure Codes Date URINALYSIS NONAUTO W/O SCOPE CPT-4: 82759 04/16/2019 URINE CULTURE/ COLONY COUNT CPT-4: 93864 04/16/2019 CEFTRIAXONE SODIUM INJECTION CPT-4: J0696 04/16/2019 THER/PROPH/DIAG INJ SC/IM CPT-4: 36186 04/16/2019 DRAIN/INJECT JOINT/BURSA CPT-4: 78198 01/22/2019 TRIAMCINOLONE ACET INJ NOS CPT-4: J3301 01/22/2019 DEXAMETHASONE SODIUM PHOS CPT-4: J1100 01/22/2019 URINE CULTURE/ COLONY COUNT CPT-4: 79459 01/07/2019 URINALYSIS NONAUTO W/O SCOPE CPT-4: 94273 01/07/2019 CEFTRIAXONE SODIUM INJECTION CPT-4: J0696 01/07/2019 THER/PROPH/DIAG INJ SC/IM CPT-4: 52906 01/07/2019 FLU VACC PRSV FREE INC ANTIG 65 AND OLDER CPT-4: 74193 12/24/2018 FLU VACC PRSV FREE INC ANTIG 65 AND OLDER CPT-4: 08077 12/24/2018 ADMIN INFLUENZA VIRUS VAC CPT-4: G0008 12/24/2018 THER/PROPH/DIAG INJ SC/IM CPT-4: 30720 11/04/2018 KETOROLAC TROMETHAMINE INJ CPT-4: J1885 11/04/2018 PROMETHAZINE HCL INJECTION CPT-4: J2550 11/04/2018 PPPS, subseq visit CPT-4: G0439 09/18/2018 THER/PROPH/DIAG INJ SC/IM CPT-4: 53027 04/01/2018 KETOROLAC TROMETHAMINE INJ CPT-4: J1885 04/01/2018 PROMETHAZINE HCL INJECTION CPT-4: J2550 04/01/2018 URINE CULTURE/ COLONY COUNT CPT-4: 70704 03/17/2018 URINALYSIS NONAUTO W/O SCOPE CPT-4: 36588 03/17/2018 FLU VACC PRSV FREE INC ANTIG 65 AND OLDER CPT-4: 79379 12/17/2017 PNEUMOCOCCAL VACC 23 RANDALL IM CPT-4: 57338 12/17/2017 ADMIN INFLUENZA VIRUS VAC CPT-4: G0008 12/17/2017 ADMIN PNEUMOCOCCAL VACCINE CPT-4: G0009 12/17/2017 PPPS, subseq visit CPT-4: G0439 09/17/2017 THER/PROPH/DIAG INJ SC/IM CPT-4: 46972 08/26/2017 KETOROLAC TROMETHAMINE INJ CPT-4: J1885 08/26/2017 PROMETHAZINE HCL INJECTION CPT-4: J2550 08/26/2017 URINALYSIS NONAUTO W/O SCOPE CPT-4: 22297 07/19/2017 URINE CULTURE/ COLONY COUNT CPT-4: 13182 07/19/2017 CEFTRIAXONE SODIUM INJECTION CPT-4: J0696 07/19/2017 THER/PROPH/DIAG INJ SC/IM CPT-4: 89529 07/19/2017 THER/PROPH/DIAG INJ SC/IM CPT-4: 37261 07/19/2017 TRIAMCINOLONE ACET INJ NOS CPT-4: J3301 07/19/2017 PRESCRIP TRANSMIT VIA ERX SY CPT-4: G8553 05/07/2017 PRESCRIP TRANSMIT VIA ERX SY CPT-4: G8553 02/22/2017 PRESCRIP TRANSMIT VIA ERX SY CPT-4: G8553 01/23/2017 FLU VACC PRSV FREE INC ANTIG 66 AND OLDER CPT-4: 03725 12/20/2016 PNEUMOCOCCAL VACC 13 RANDALL IM CPT-4: 91091 12/20/2016 ADMIN INFLUENZA VIRUS VAC CPT-4: G0008 12/20/2016 ADMIN PNEUMOCOCCAL VACCINE CPT-4: G0009 12/20/2016 URINALYSIS NONAUTO W/O SCOPE CPT-4: 70650 10/08/2016 URINE CULTURE/ COLONY COUNT CPT-4: 37652 10/08/2016 PRESCRIP TRANSMIT VIA ERX SY CPT-4: G8553 10/08/2016 PRESCRIP TRANSMIT VIA ERX SY CPT-4: G8553 09/19/2016 PRESCRIP TRANSMIT VIA ERX SY CPT-4: G8553 08/20/2016 PRESCRIP TRANSMIT VIA ERX SY CPT-4: G8553 02/29/2016 KETOROLAC TROMETHAMINE INJ CPT-4: J1885 02/02/2016 THER/PROPH/DIAG INJ SC/IM CPT-4: 25900 02/02/2016 PROMETHAZINE HCL INJECTION CPT-4: J2550 02/02/2016 PRESCRIP TRANSMIT VIA ERX SY CPT-4: G8553 02/02/2016 FLU VACC PRSV FREE INC ANTIG 65 AND OLDER CPT-4: 96498 01/05/2016 PPPS, subseq visit CPT-4: G0439 01/05/2016 ADMIN INFLUENZA VIRUS VAC CPT-4: G0008 01/05/2016 URINE CULTURE/ COLONY COUNT CPT-4: 04949 12/05/2015 URINALYSIS NONAUTO W/O SCOPE CPT-4: 46427 12/05/2015 PRESCRIP TRANSMIT VIA ERX SY CPT-4: G8553 12/05/2015 PRESCRIP TRANSMIT VIA ERX SY CPT-4: G8553 10/26/2015 URINALYSIS NONAUTO W/O SCOPE CPT-4: 10080 10/05/2015 URINE CULTURE/ COLONY COUNT CPT-4: 84148 10/05/2015 PRESCRIP TRANSMIT VIA ERX SY CPT-4: G8553 10/05/2015 MD SERVICE REQUIRED FOR PMD CPT-4: G0372 09/15/2015 PRESCRIP TRANSMIT VIA ERX SY CPT-4: G8553 09/15/2015 SPECIAL REPORTS OR FORMS CPT-4: 13673 08/25/2015 PRESCRIP TRANSMIT VIA ERX SY CPT-4: G8553 07/05/2015 URINALYSIS NONAUTO W/O SCOPE CPT-4: 19493 03/30/2015 ASSAY, GLUCOSE, BLOOD QUANT CPT-4: 45031 03/30/2015 URINE CULTURE/ COLONY COUNT CPT-4: 80173 03/30/2015 PRESCRIP TRANSMIT VIA ERX SY CPT-4: G8553 03/30/2015 PRESCRIP TRANSMIT VIA ERX SY CPT-4: G8553 02/03/2015 FLU VACC PRSV FREE INC ANTIG 65 AND OLDER CPT-4: 90306 12/29/2014 ADMIN INFLUENZA VIRUS VAC CPT-4: G0008 12/29/2014 PRESCRIP TRANSMIT VIA ERX SY CPT-4: G8553 12/29/2014 PRESCRIP TRANSMIT VIA ERX SY CPT-4: G8553 09/02/2014 PROTEIN/CREAT URINE WITH RATIO CPT-4: 19691|61926 5 MICROALBUMIN QUANTITATIVE CPT-4: 22315 04/01/2014 PRESCRIP TRANSMIT VIA ERX SY CPT-4: G8553 03/16/2014 PRESCRIP TRANSMIT VIA ERX SY CPT-4: G8553 03/09/2014 THER/PROPH/DIAG INJ SC/IM CPT-4: 79415 03/01/2014 TRIAMCINOLONE ACET INJ NOS CPT-4: J3301 03/01/2014 PRESCRIP TRANSMIT VIA ERX SY CPT-4: G8553 02/09/2014 URINE CULTURE/ COLONY COUNT CPT-4: 19023 10/30/2013 URINALYSIS NONAUTO W/O SCOPE CPT-4: 95363 10/21/2013 URINE CULTURE/ COLONY COUNT CPT-4: 90515 10/21/2013 DESTRUCT PREMALG LESION (Cryosurgery) CPT-4: 04056 PRESCRIP TRANSMIT VIA ERX SY CPT-4: G8553 10/05/2013 URINALYSIS NONAUTO W/O SCOPE CPT-4: 05629 08/04/2013 URINE CULTURE/ COLONY COUNT CPT-4: 81842 08/04/2013 PRESCRIP TRANSMIT VIA ERX SY CPT-4: G8553 08/04/2013 THER/PROPH/DIAG INJ SC/IM CPT-4: 87021 07/13/2013 TRIAMCINOLONE ACET INJ NOS CPT-4: J3301 07/13/2013 PRESCRIP TRANSMIT VIA ERX SY CPT-4: G8553 05/27/2013 URINALYSIS NONAUTO W/O SCOPE CPT-4: 06103 05/25/2013 URINE CULTURE/ COLONY COUNT CPT-4: 49889 05/25/2013 THER/PROPH/DIAG INJ SC/IM CPT-4: 68993 05/04/2013 VITAMIN B12 INJECTION CPT-4: J3420 05/04/2013 THER/PROPH/DIAG INJ SC/IM CPT-4: 05947 04/17/2013 VITAMIN B12 INJECTION CPT-4: J3420 04/17/2013 THER/PROPH/DIAG INJ SC/IM CPT-4: 15106 04/17/2013 METHYLPREDNISOLONE 40 MG INJ CPT-4: J1030 04/17/2013 TRIAMCINOLONE ACET INJ NOS CPT-4: J3301 04/17/2013 URINALYSIS NONAUTO W/O SCOPE CPT-4: 98620 04/06/2013 URINE CULTURE/ COLONY COUNT CPT-4: 48623 04/06/2013 PRESCRIP TRANSMIT VIA ERX SY CPT-4: G8553 04/06/2013 KETOROLAC TROMETHAMINE INJ CPT-4: J1885 06/25/2012 PROMETHAZINE HCL INJECTION CPT-4: J2550 06/25/2012 THER/PROPH/DIAG INJ SC/IM CPT-4: 63031 06/25/2012 THER/PROPH/DIAG INJ SC/IM CPT-4: 12207 06/24/2012 METHYLPREDNISOLONE 40 MG INJ CPT-4: J1030 06/24/2012 TRIAMCINOLONE ACET INJ NOS CPT-4: J3301 06/24/2012 URINE CULTURE/ COLONY COUNT CPT-4: 82891 06/24/2012 THER/PROPH/DIAG INJ SC/IM CPT-4: 60820 05/20/2012 KETOROLAC TROMETHAMINE INJ CPT-4: J1885 05/20/2012 THER/PROPH/DIAG INJ SC/IM CPT-4: 46095 05/20/2012 PROMETHAZINE HCL INJECTION CPT-4: J2550 05/20/2012 DRAIN/INJECT JOINT/BURSA CPT-4: 25062 02/13/2012 METHYLPREDNISOLONE 40 MG INJ CPT-4: J1030 02/13/2012 TRIAMCINOLONE ACET INJ NOS CPT-4: J3301 02/13/2012 THER/PROPH/DIAG INJ SC/IM CPT-4: 48537 11/14/2011 METHYLPREDNISOLONE 40 MG INJ CPT-4: J1030 11/14/2011 TRIAMCINOLONE ACET INJ NOS CPT-4: J3301 11/14/2011 THER/PROPH/DIAG INJ SC/IM CPT-4: 65507 09/12/2011 KETOROLAC TROMETHAMINE INJ CPT-4: J1885 09/12/2011 THER/PROPH/DIAG INJ SC/IM CPT-4: 35745 08/09/2011 METHYLPREDNISOLONE 40 MG INJ CPT-4: J1030 08/09/2011 TRIAMCINOLONE ACET INJ NOS CPT-4: J3301 08/09/2011 URINE CULTURE/ COLONY COUNT CPT-4: 60061 07/03/2011 URINE CULTURE/ COLONY COUNT CPT-4: 47097 06/04/2011 THER/PROPH/DIAG INJ SC/IM CPT-4: 25872 05/03/2011 METHYLPREDNISOLONE 40 MG INJ CPT-4: J1030 05/03/2011 TRIAMCINOLONE ACET INJ NOS CPT-4: J3301 05/03/2011 URINALYSIS NONAUTO W/O SCOPE CPT-4: 31993 01/24/2011 URINE CULTURE/ COLONY COUNT CPT-4: 48583 01/24/2011 FLUZONE, 5ML (Medicare) CPT-4: Q2038 01/02/2011 ADMIN INFLUENZA VIRUS VAC CPT-4: G0008 01/02/2011 ASSAY, GLUCOSE, BLOOD QUANT CPT-4: 06593 12/07/2010 URINE CULTURE/ COLONY COUNT CPT-4: 14874 11/02/2010 THER/PROPH/DIAG INJ SC/IM CPT-4: 39465 10/18/2010 METHYLPREDNISOLONE 40 MG INJ CPT-4: J1030 10/18/2010 TRIAMCINOLONE ACET INJ NOS CPT-4: J3301 10/18/2010 TRIAMCINOLONE ACET INJ NOS CPT-4: J3301 05/11/2010 METHYLPREDNISOLONE 40 MG INJ CPT-4: J1030 05/11/2010 THER/PROPH/DIAG INJ SC/IM CPT-4: 70533 05/11/2010 TRIAMCINOLONE ACET INJ NOS CPT-4: J3301 02/09/2010 METHYLPREDNISOLONE 40 MG INJ CPT-4: J1030 02/09/2010 THER/PROPH/DIAG INJ SC/IM CPT-4: 90317 02/09/2010 MD SERVICE REQUIRED FOR PMD CPT-4: G0372 02/09/2010 FLU VACCINE 3 YRS & > IM UP 64 CPT-4: 32858 0 PNEUMOCOCCAL VACC 23 RANDALL IM CPT-4: 27849 12/07/2009 ADMIN INFLUENZA VIRUS VAC CPT-4: G0008 12/07/2009 ADMIN PNEUMOCOCCAL VACCINE CPT-4: G0009 12/07/2009 TRIAMCINOLONE ACET INJ NOS CPT-4: J3301 05/26/2009 THER/PROPH/DIAG INJ SC/IM CPT-4: 27692 05/26/2009 METHYLPREDNISOLONE 80 MG INJ CPT-4: J1040 05/26/2009 Vital Signs Date Vital 08/25/2019 Blood Pressure 1: 136/82 Code: 8480-6 Heart Rate 1: 80 bpm Respiratory Rate: 20 bpm SpO2: 95% Temperature: 36.4 (C) / 97.5 (F) We ight: 221 lbs 08/10/2019 Blood Pressure 1: 126/67 Code: 8480-6 Heart Rate 1: 63 bpm Respiratory Rate: 18 bpm SpO2: 96% Temperature: 36.7 (C) / 98.0 (F) We ight: 227 lbs 08/04/2019 Blood Pressure 1: 133/67 Code: 8480-6 Heart Rate 1: 89 bpm Respiratory Rate: 16 bpm SpO2: 99% Temperature: 36.7 (C) / 98.0 (F) We ight: 226 lbs 06/16/2019 Blood Pressure 1: 152/97 Code: 8480-6 [...] 1: 114/72 Code: 8480-6 BMI: 37.8 Code: 17468-5 Heart Rate 1: 72 bpm Height: 5'3" [...] 1: 106/68 Code: 8480-6 BMI: 35.7 Code: 66839-4 Heart Rate 1: 72 bpm Height: 5'4" Respiratory Rate: 20 bpm SpO2: 98% Tempera ture: 36.7 (C) / 98.0 (F) Weight: 208 lbs 04/16/2018 Blood Pressure 1: 132/82 Code: 8480-6 BMI: 37.9 Code: 48050-9 Heart Rate 1: 72 bpm Height: 5'4" Respiratory Rate: 20 bpm SpO2: 96% Tempera ture: 37.1 (C) / 98.8 (F) Weight: 221 lbs 04/01/2018 Blood Pressure 1: 150/90 Code: 8480-6 Heart Rate 1: 72 bpm Respiratory Rate: 22 bpm SpO2: 95% Temperature: 36.4 (C) / 97.6 (F) We ight: 216 lbs 03/06/2018 Blood Pressure 1: 126/78 Code: 8480-6 BMI: 37.4 Code: 14383-0 Heart Rate 1: 68 bpm Height: 5'4" [...] ight: 222 lbs 12/25/2017 BMI: 37.8 Code: 11219-6 Heart Rate 1: 76 bpm Height: 5 '4" Respiratory Rate: 20 bpm SpO2: 96% Temperature: 37.3 (C) / 99.2 (F) Weight: 220 lbs 12/17/2017 Blood Pressure 1: 132/78 Code: 8480-6 BMI: 37.2 Code: 27643-2 Heart Rate 1: 88 bpm Height: 5'4" Respiratory Rate: 20 bpm SpO2: 96% Tempera ture: 37.3 (C) / 99.2 (F) Weight: 217 lbs 10/30/2017 Blood Pressure 1: 114/68 Code: 8480-6 BMI: 36.4 Code: 78714-7 Heart Rate 1: 72 bpm Height: 5'4" Respiratory Rate: 22 bpm SpO2: 96% Tempera ture: 36.8 (C) / 98.2 (F) Weight: 212 lbs 10/23/2017 Blood Pressure 1: 124/78 Code: 8480-6 Heart Rate 1: 72 bpm Respiratory Rate: 24 bpm SpO2: 94% Temperature: 36.6 (C) / 97.9 (F) We ight: 212 lbs 09/17/2017 Blood Pressure 1: 128/82 Code: 8480-6 BMI: 37.4 Code: 43084-7 Heart Rate 1: 72 bpm Height: 5'4" Respiratory Rate: 20 bpm SpO2: 96% Tempera ture: 37.0 (C) / 98.6 (F) Weight: 218 lbs 07/19/2017 Blood Pressure 1: 136/84 Code: 8480-6 BMI: 36.6 Code: 47660-0 Heart Rate 1: 88 bpm Height: 5'4" Respiratory Rate: 20 bpm SpO2: 97% Tempera ture: 36.7 (C) / 98.0 (F) Weight: 213 lbs 05/29/2017 Blood Pressure 1: 136/82 Code: 8480-6 BMI: 36.7 Code: 57469-7 Heart Rate 1: 72 bpm Height: 5'4" Respiratory Rate: 20 bpm SpO2: 97% Tempera ture: 36.9 (C) / 98.4 (F) Weight: 214 lbs 05/07/2017 Blood Pressure 1: 122/80 Code: 8480-6 BMI: 37.1 Code: 46392-7 Heart Rate 1: 80 bpm Height: 5'4" Respiratory Rate: 24 bpm SpO2: 96% Tempera ture: 36.1 (C) / 97.0 (F) Weight: 216 lbs 03/18/2017 BMI: 36.7 Code: 64414-0 Heart Rate 1: 80 bpm Height: 5 '4" Respiratory Rate: 22 bpm SpO2: 95% Temperature: 36.9 (C) / 98.4 (F) Weight: 214 lbs 02/27/2017 Blood Pressure 1: 146/94 Code: 8480-6 BMI: 36.6 Code: 55606-1 Heart Rate 1: 76 bpm Height: 5'4" Respiratory Rate: 22 bpm SpO2: 97% Tempera ture: 36.6 (C) / 97.9 (F) Weight: 213 lbs 02/22/2017 Blood Pressure 1: 126/90 Code: 8480-6 BMI: 36.4 Code: 14876-7 Heart Rate 1: 84 bpm Height: 5'4" Respiratory Rate: 22 bpm SpO2: 95% Tempera ture: 36.9 (C) / 98.4 (F) Weight: 212 lbs 01/23/2017 Blood Pressure 1: 146/82 Code: 8480-6 BMI: 37.6 Code: 05748-3 Heart Rate 1: 96 bpm Height: 5'4" Respiratory Rate: 20 bpm SpO2: 96% Tempera ture: 36.9 (C) / 98.4 (F) Weight: 219 lbs 12/20/2016 Blood Pressure 1: 126/70 Code: 8480-6 BMI: 37.2 Code: 68917-0 Heart Rate 1: 76 bpm Height: 5'4" Respiratory Rate: 22 bpm SpO2: 95% Tempera ture: 36.6 (C) / 97.8 (F) Weight: 217 lbs 10/08/2016 Blood Pressure 1: 128/82 Code: 8480-6 BMI: 36.9 Code: 01574-1 Heart Rate 1: 76 bpm Height: 5'4" Respiratory Rate: 20 bpm SpO2: 95% Tempera ture: 37.0 (C) / 98.6 (F) Weight: 215 lbs 09/19/2016 Blood Pressure 1: 144/78 Code: 8480-6 BMI: 37.8 Code: 57072-1 Heart Rate 1: 76 bpm Height: 5'4" Respiratory Rate: 22 bpm SpO2: 95% Tempera ture: 37.0 (C) / 98.6 (F) Weight: 220 lbs 08/20/2016 Blood Pressure 1: 140/86 Code: 8480-6 BMI: 37.4 Code: 31525-8 Heart Rate 1: 80 bpm Height: 5'4" Respiratory Rate: 20 bpm SpO2: 95% Tempera ture: 36.9 (C) / 98.4 (F) Weight: 218 lbs 06/19/2016 Blood Pressure 1: 124/78 Code: 8480-6 BMI: 37.8 Code: 84147-6 Heart Rate 1: 74 bpm Height: 5'4" Respiratory Rate: 24 bpm SpO2: 96% Tempera ture: 36.9 (C) / 98.4 (F) Weight: 220 lbs 06/04/2016 Blood Pressure 1: 124/78 Code: 8480-6 BMI: 38.8 Code: 58436-0 Heart Rate 1: 72 bpm Height: 5'4" Respiratory Rate: 24 bpm SpO2: 95% Tempera ture: 36.8 (C) / 98.2 (F) Weight: 226 lbs 05/02/2016 Blood Pressure 1: 136/90 Code: 8480-6 BMI: 37.6 Code: 58418-4 Heart Rate 1: 72 bpm Height: 5'4" Respiratory Rate: 24 bpm SpO2: 96% Tempera ture: 36.9 (C) / 98.4 (F) Weight: 219 lbs 04/03/2016 Blood Pressure 1: 12678 Code: 8480-6 BMI: 38.1 Code: 00708-6 Heart Rate 1: 72 bpm Height: 5'4" Respiratory Rate: 22 bpm SpO2: 94% Tempera ture: 36.9 (C) / 98.4 (F) Weight: 222 lbs 02/29/2016 Blood Pressure 1: 132/78 Code: 8480-6 Heart Rate 1: 78 bpm Height: Respiratory Rate: 24 bpm SpO2: 95% Temperature: 36.4 (C) / 97.6 (F) We ight: 02/02/2016 Blood Pressure 1: 12478 Code: 8480-6 BMI: 37.6 Code: 05500-2 Heart Rate 1: 76 bpm Height: 5'4" Respiratory Rate: 20 bpm SpO2: 95% Tempera ture: 36.8 (C) / 98.2 (F) Weight: 219 lbs 01/05/2016 Blood Pressure 1: 126/70 Code: 8480-6 BMI: 37.1 Code: 91583-7 Heart Rate 1: 76 bpm Height: 5'4" Respiratory Rate: 20 bpm Temperature: 36 .6 (C) / 97.8 (F) Weight: 216 lbs 12/05/2015 Blood Pressure 1: 126/72 Code: 8480-6 BMI: 36.9 Code: 29256-6 Heart Rate 1: 92 bpm Height: 5'4" Respiratory Rate: 20 bpm Temperature: 36 .7 (C) / 98.1 (F) Weight: 215 lbs 10/26/2015 Blood Pressure 1: 142/80 Code: 8480-6 BMI: 36.4 Code: 66248-1 Heart Rate 1: 82 bpm Height: 5'4" Respiratory Rate: 24 bpm SpO2: 92% Tempera ture: 35.9 (C) / 96.7 (F) Weight: 212 lbs 10/05/2015 Blood Pressure 1: 136/82 Code: 8480-6 Heart Rate 1: 80 bpm Respiratory Rate: 18 bpm SpO2: 98% Temperature: 35.7 (C) / 96.3 (F) We ight: 214 lbs 09/15/2015 Blood Pressure 1: 11680 Code: 8480-6 BMI: 34.6 Code: 85715-3 Heart Rate 1: 76 bpm Height: 5'6" Respiratory Rate: 20 bpm Temperature: 36 .6 (C) / 97.9 (F) Weight: 211 lbs 08/24/2015 Blood Pressure 1: 124 Code: 8480-6 BMI: 34.1 Code: 30195-8 Heart Rate 1: 68 bpm Height: 5'6" Respiratory Rate: 20 bpm Temperature: 36 .8 (C) / 98.3 (F) Weight: 208 lbs 07/05/2015 Blood Pressure 1: 11478 Code: 8480-6 BMI: 33.9 Code: 96325-4 Heart Rate 1: 80 bpm Height: 5'6" Respiratory Rate: 20 bpm Temperature: 36 .6 (C) / 97.9 (F) Weight: 207 lbs 06/06/2015 Blood Pressure 1: 122/78 Code: 8480-6 BMI: 34.1 Code: 64062-5 Heart Rate 1: 76 bpm Height: 5'6" Respiratory Rate: 24 bpm SpO2: 96% Tempera ture: 36.4 (C) / 97.6 (F) Weight: 208 lbs 05/23/2015 Blood Pressure 1: 124/78 Code: 8480-6 Heart Rate 1: 76 bpm Respiratory Rate: 24 bpm SpO2: 93% Temperature: 36.8 (C) / 98.2 (F) We ight: 212 lbs 05/05/2015 Blood Pressure 1: 136/80 Code: 8480-6 BMI: 35.4 Code: 10437-5 Heart Rate 1: 76 bpm Height: 5'6" Respiratory Rate: 28 bpm Temperature: 37 .0 (C) / 98.6 (F) Weight: 216 lbs 03/30/2015 Blood Pressure 1: 132/86 Code: 8480-6 BMI: 35.2 Code: 91840-9 Heart Rate 1: 84 bpm Height: 5'6" Respiratory Rate: 24 bpm Temperature: 36 .7 (C) / 98.0 (F) Weight: 215 lbs 02/03/2015 Blood Pressure 1: 122/74 Code: 8480-6 BMI: 35.7 Code: 72877-7 Heart Rate 1: 84 bpm Height: 5'6" Respiratory Rate: 20 bpm Temperature: 36 .9 (C) / 98.5 (F) Weight: 218 lbs 12/29/2014 Blood Pressure 1: 132/80 Code: 8480-6 BMI: 35.1 Code: 52086-6 Heart Rate 1: 80 bpm Height: 5'6" Respiratory Rate: 20 bpm Temperature: 36 .6 (C) / 97.8 (F) Weight: 214 lbs 09/02/2014 Blood Pressure 1: 128/92 Code: 8480-6 BMI: 34.7 Code: 04541-1 Heart Rate 1: 84 bpm Height: 5'6" Respiratory Rate: 26 bpm Temperature: 36 .8 (C) / 98.2 (F) Weight: 212 lbs 08/25/2014 Blood Pressure 1: 124/80 Code: 8480-6 BMI: 34.7 Code: 47518-0 Heart Rate 1: 78 bpm Height: 5'6" Respiratory Rate: 22 bpm SpO2: 97% Tempera ture: 36.6 (C) / 97.8 (F) Weight: 212 lbs 04/01/2014 Blood Pressure 1: 142/84 Code: 8480-6 BMI: 34.4 Code: 04859-0 Heart Rate 1: 74 bpm Height: 5'5" Respiratory Rate: 20 bpm Temperature: 36 .4 (C) / 97.6 (F) Weight: 207 lbs 03/16/2014 Blood Pressure 1: 142/90 Code: 8480-6 BMI: 34.6 Code: 97868-0 Heart Rate 1: 76 bpm Height: 5'5" Respiratory Rate: 24 bpm Temperature: 36 .5 (C) / 97.7 (F) Weight: 208 lbs 03/09/2014 Blood Pressure 1: 116/70 Code: 8480-6 BMI: 35.3 Code: 76215-7 Heart Rate 1: 72 bpm Height: 5'5" [...] 1: 128/86 Code: 8480-6 BMI: 34.3 Code: 14215-5 Heart Rate 1: 84 bpm Height: 5'5" Respiratory Rate: 20 bpm Temperature: 36 .7 (C) / 98.0 (F) Weight: 206 lbs 12/23/2013 Blood Pressure 1: 122/70 Code: 8480-6 BMI: 34.3 Code: 90126-5 Heart Rate 1: 68 bpm Height: 5'5" Respiratory Rate: 20 bpm Temperature: 36 .8 (C) / 98.2 (F) Weight: 206 lbs 10/05/2013 Blood Pressure 1: 118/76 Code: 8480-6 BMI: 34.1 Code: 52267-9 Heart Rate 1: 68 bpm Height: 5'5" Respiratory Rate: 20 bpm SpO2: 98% Tempera ture: 36.6 (C) / 97.9 (F) Weight: 205 lbs 08/04/2013 Blood Pressure 1: 126/82 Code: 8480-6 BMI: 33.3 Code: 23695-0 Heart Rate 1: 76 bpm Height: 5'5" Respiratory Rate: 20 bpm Temperature: 36 .8 (C) / 98.2 (F) Weight: 200 lbs 07/03/2013 Blood Pressure 1: 124/82 Code: 8480-6 BMI: 33.3 Code: 41168-5 Heart Rate 1: 72 bpm Height: 5'5" Respiratory Rate: 22 bpm Temperature: 36 .1 (C) / 97.0 (F) Weight: 200 lbs 05/27/2013 Blood Pressure 1: 126/82 Code: 8480-6 Heart Rate 1: 74 bpm Respiratory Rate: 20 bpm Temperature: 36.0 (C) / 96.8 (F) Weight: 199 lbs 04/06/2013 Blood Pressure 1: 118/80 Code: 8480-6 BMI: 35.2 Code: 44543-4 Heart Rate 1: 80 bpm Height: 5'4" Respiratory Rate: 20 bpm Temperature: 37 .4 (C) / 99.3 (F) Weight: 205 lbs 11/10/2012 Blood Pressure 1: 128/82 Code: 8480-6 Heart Rate 1: 84 bpm Respiratory Rate: 20 bpm Temperature: 36.7 (C) / 98.0 (F) Weight: 199 lbs 09/02/2012 Blood Pressure 1: 116/82 Code: 8480-6 BMI: 34.2 Code: 58215-3 Heart Rate 1: 88 bpm Height: 5'4" Respiratory Rate: 22 bpm Temperature: 36 .6 (C) / 97.8 (F) Weight: 199 lbs 08/04/2012 Blood Pressure 1: 128/74 Code: 8480-6 BMI: 34.0 Code: 05585-0 Heart Rate 1: 92 bpm Height: 5'4" Respiratory Rate: 20 bpm Temperature: 36 .4 (C) / 97.5 (F) Weight: 198 lbs 07/21/2012 Blood Pressure 1: 124/86 Code: 8480-6 Heart Rate 1: 116 bpm Respiratory Rate: 24 bpm Temperature: 36.8 (C) / 98.2 (F) 07/02/2012 Blood Pressure 1: 116/88 Code: 8480-6 BMI: 33.6 Code: 68080-6 Heart Rate 1: 76 bpm Height: 5'4" Respiratory Rate: 20 bpm Temperature: 36 .8 (C) / 98.3 (F) Weight: 196 lbs 06/24/2012 Blood Pressure 1: 124/80 Code: 8480-6 BMI: 34.3 Code: 66794-5 Heart Rate 1: 72 bpm Height: 5'4" SpO2: 96% Temperature: 36.3 (C) / 97.3 (F) Weight: 200 lbs 05/20/2012 Blood Pressure 1: 116/88 Code: 8480-6 BMI: 33.8 Code: 14809-2 Heart Rate 1: 80 bpm Height: 5'4" Respiratory Rate: 22 bpm Temperature: 36 .9 (C) / 98.4 (F) Weight: 197 lbs 05/08/2012 Blood Pressure 1: 128/86 Code: 8480-6 BMI: 33.8 Code: 03252-4 Heart Rate 1: 76 bpm Height: 5'4" Respiratory Rate: 26 bpm SpO2: 95% Tempera ture: 36.1 (C) / 97.0 (F) Weight: 197 lbs 04/22/2012 Blood Pressure 1: 106/64 Code: 8480-6 BMI: 33.8 Code: 74547-0 Heart Rate 1: 70 bpm Height: 5'4" Temperature: 36.1 (C) / 97.0 (F) Weight: 197 lbs 02/13/2012 Blood Pressure 1: 126/82 Code: 8480-6 BMI: 34.7 Code: 18048-4 Heart Rate 1: 64 bpm Height: 5'4" Respiratory Rate: 20 bpm Temperature: 36 .6 (C) / 97.8 (F) Weight: 202 lbs 01/28/2012 Blood Pressure 1: 116/80 Code: 8480-6 BMI: 34.7 Code: 86767-8 Heart Rate 1: 76 bpm Height: 5'4" Respiratory Rate: 20 bpm Temperature: 36 .8 (C) / 98.3 (F) Weight: 202 lbs 12/26/2011 Blood Pressure 1: 132/82 Code: 8480-6 BMI: 36.0 Code: 12917-8 Heart Rate 1: 68 bpm Height: 5'4" Respiratory Rate: 22 bpm Temperature: 36 .7 (C) / 98.0 (F) Weight: 210 lbs 11/14/2011 Blood Pressure 1: 124/80 Code: 8480-6 BMI: 36.4 Code: 13931-3 Heart Rate 1: 76 bpm Height: 5'4" Respiratory Rate: 20 bpm Temperature: 36 .8 (C) / 98.2 (F) Weight: 212 lbs 09/12/2011 Blood Pressure 1: 108/74 Code: 8480-6 BMI: 37.1 Code: 88523-7 Heart Rate 1: 72 bpm Height: 5'4" Respiratory Rate: 20 bpm Temperature: 37 .0 (C) / 98.6 (F) Weight: 216 lbs 08/15/2011 Blood Pressure 1: 122/80 Code: 8480-6 BMI: 36.9 Code: 86900-6 Heart Rate 1: 76 bpm Height: 5'4" Respiratory Rate: 20 bpm Temperature: 36 .2 (C) / 97.1 (F) Weight: 215 lbs 08/09/2011 Blood Pressure 1: 112/78 Code: 8480-6 BMI: 36.9 Code: 52746-2 Heart Rate 1: 68 bpm Height: 5'4" Respiratory Rate: 20 bpm Temperature: 36 .7 (C) / 98.0 (F) Weight: 215 lbs 07/03/2011 Blood Pressure 1: 140/94 Code: 8480-6 BMI: 36.2 Code: 18252-7 Heart Rate 1: 68 bpm Height: 5'4" Temperature: 36.0 (C) / 96.8 (F) Weight: 211 lbs 06/04/2011 Blood Pressure 1: 124/70 Code: 8480-6 BMI: 36.7 Code: 05975-2 Heart Rate 1: 68 bpm Height: 5'4" Respiratory Rate: 20 bpm Temperature: 36 .6 (C) / 97.9 (F) Weight: 214 lbs 05/03/2011 Blood Pressure 1: 130/76 Code: 8480-6 BMI: 36.4 Code: 88964-4 Heart Rate 1: 74 bpm Height: 5'5" Temperature: 36.2 (C) / 97.2 (F) Weight: 219 lbs 04/05/2011 Blood Pressure 1: 124/86 Code: 8480-6 BMI: 35.9 Code: 03682-6 Heart Rate 1: 76 bpm Height: 5'6" Respiratory Rate: 22 bpm Temperature: 36 .3 (C) / 97.3 (F) Weight: 219 lbs 03/08/2011 Blood Pressure 1: 112/78 Code: 8480-6 BMI: 35.1 Code: 82244-0 Heart Rate 1: 80 bpm Height: 5'6" Respiratory Rate: 26 bpm Temperature: 36 .9 (C) / 98.4 (F) Weight: 214 lbs 01/24/2011 Blood Pressure 1: 110/82 Code: 8480-6 BMI: 35.6 Code: 99812-8 Heart Rate 1: 80 bpm Height: 5'6" Temperature: 36.1 (C) / 97.0 (F) Weight: 217 lbs 01/02/2011 Blood Pressure 1: 106/72 Code: 8480-6 BMI: 35.6 Code: 13145-0 Heart Rate 1: 76 bpm Height: 5'6" [...] 1: 120/74 Code: 8480-6 BMI: 35.9 Code: 30646-7 Heart Rate 1: 72 bpm Height: 5'5" Temperature: 36.3 (C) / 97.4 (F) Weight: 216 lbs 09/19/2010 Blood Pressure 1: 124/80 Code: 8480-6 BMI: 35.4 Code: 60215-6 Heart Rate 1: 76 bpm Height: 5'5" [...] 1: 122/78 Code: 8480-6 BMI: 37.4 Code: 75641-6 Heart Rate 1: 84 bpm Height: 5'5" Weight: 225 lbs Functional Status No Functional Status data Reason For Visit Reason For Visit Effective Dates Notes back pain 08/25/2019 ~generic 08/10/2019 pt has c/o of excess luias yawning. Pt states that she goes through 2-3 episodes daily lasting approx 10 minutes. back pain 08/04/2019 follow up 07/06/2019 Hospital fwup follow up 06/24/2019 From ER visit for [...] up 10/30/2017 follow up 10/23/2017 Hospital fwup [place] Annual Checkup 09/17/2017 Wellness Physical fo r [...] follow up 10/26/2015 ER visit from at [facility] for COPD Exacerbation follow up 10/05/2015 ER Visit gait abnormality 09/15/2015 Patient requesting kelly pineda paperwork to be filled out disturbances of thinking 08/24/2015 follow up 07/05/2015 4wk fwup follow up 06/06/[address] [facility] cough 05/23/2015 follow up 05/05/2015 dyspnea 03/30/2015 [facility] needs new orde r for O2 abdominal pain 02/03/2015 cyst 12/29/2014 vs abscess follow up 09/02/[address] [facility] headache 08/25/2014 facial drooping follow up 04/01/2014 ER follow up 03/16/2014 1wk fwup follow up 03/09/2014 1mo fwup and bronchi tis fwup follow up 03/03/2014 2 day follow up 03/01/2014 ER follow up 02/09/2014 [facility] gastroesophageal reflux 12/23/2013 painful urination 10/30/2013 UTI [...] up 08/04/2012 2wk fwup follow up 07/21/2012 [facility] an sore throat 07/02/2012 headache 06/25/2012 request [...] up 04/05/2011 1mo fwup follow up 03/08/2011 2k hospital fwup dizziness 01/24/2011 frequent falling follow up 01/02/2011 decreased enalapril and propranolol rash 12/07/2010 under breasts/abdome n fold follow up 11/16/2010 1mo fwup follow up 11/02/2010 ER fwup follow up 10/18/[address] Medrano [place] w [email or web address], having increased allergy symptoms. Would like steroid [...] month f/u follow up 12/07/[address] [facility], done with PT--finished about 2wks ago follow up 11/08/2009 2wk fwup follow up 10/24/2009 hosp fwup ~generic 07/25/2009 bilateral earlobe re dness/swelling, pain radiating into neck, refill Demerol ~generic 05/26/2009 FALLING A LOT, SAVEL LA NOT HELPING FIBROMYALGIA PAIN, LT HAND LACERATION-FELL INTO NAIL 05/25/09 Encounters Encounter Performer Location Codes Date OFFICE/OUTPATIENT VISIT EST Diagnosis: Fibromyalgia[ICD10: M79.7] Diagnosis: Muscle weakness[ICD10: M62.81] Diagnosis: Generalized pain[ICD10: R52] Diagnosis: Hypoxia[ICD10: R09.02] Diagnosis: Migraine[ICD10: G43.909] Belia MARTINEZ [facility] CPT-4: 39208 08/25/2019 ([id number]) OFFICE/OUTPATIENT VISIT EST Diagnosis: Yawning[ICD10: R06.89] Diagnosis: LION (obstructive sleep apnea)[ICD10: G47.33] Pattie REID DO [facility] CPT-4: 57997 08/10/2019 ([id number]) OFFICE/OUTPATIENT VISIT EST Diagnosis: Pelvic pain in female[ICD10: R10.2] Diagnosis: Left leg swelling[ICD10: M79.89] Diagnosis: Dyspnea[ICD10: R06.00] Diagnosis: Constipation[ICD10: K59.00] Pattie WICK [facility] CPT-4: 17789 08/04/2019 ([id number]) OFFICE/OUTPATIENT VISIT EST Diagnosis: Inspiratory stridor[ICD10: R06.1] Diagnosis: Diarrhea[ICD10: R19.7] [facility] 9921 3 07/06/2019 ([id number]) OFFICE/OUTPATIENT VISIT EST Diagnosis: Left leg swelling[ICD10: M79.89] Diagnosis: Dyspnea[ICD10: R06.00] [facility]: 9921 3 06/24/2019 ([id number]) OFFICE/OUTPATIENT VISIT EST Diagnosis: Acute bronchitis[ICD10: J20.9] Diagnosis: Colitis[ICD10: K52.9] [facility] 92396 06/16/2019 ([id number]) OFFICE/OUTPATIENT VISIT EST Diagnosis: Diarrhea[ICD10: R19.7] Diagnosis: Abdominal bloating[ICD10: R14.0] Belia Reid [facility] CPT- 4: 27935 06/08/2019 ([id number]) OFFICE/OUTPATIENT VISIT EST Diagnosis: Acute febrile illness[ICD10: R50.9] Diagnosis: Colitis[ICD10: K52.9] Belia Reid [facility] CPT-4: 46640 05/26/2019 ([id number]) OFFICE/OUTPATIENT VISIT EST Diagnosis: Chronic obstructive pulmonary disease, unspecified[ICD10: J44.9] Diagnosis: Pulmonary fibrosis[ICD10: J84.10] Diagnosis: Intermittent stridor[ICD10: R06.1] Diagnosis: Muscle weakness[ICD10: M62.81] Belia HSUQUELINE Bushra Mayda ZACHARYNDOTONIEL AssertID [facility] CPT-4: 71630 05/13/2019 ([id number]) OFFICE/OUTPATIENT VISIT EST Diagnosis: Stridor[ICD10: R06.1] Diagnosis: COUGH[ICD10: R05] Beliahanna BRUNSON BushraMayda LUISER AssertID [facility] CPT-4: 52026 05/06/2019 ([id number]) OFFICE/OUTPATIENT VISIT EST Diagnosis: Stridor[ICD10: R06.1] Diagnosis: Muscle, jerky movements (uncontrolled)[ICD10: G25.5] Belia Zacharynilson BRUNSON BushraMayda LUISER AssertID [facility] CPT-4: 96751 04/29/2019 ([id number]) OFFICE/OUTPATIENT VISIT EST Diagnosis: Upper respiratory infection[ICD10: J06.9] Diagnosis: Flank pain[ICD10: R10.9] Diagnosis: Weight gain[ICD10: R63.5] Pattie Floresjuan BRUNSON BushraMayda ZACHARY NDESudhir AssertID [facility] CPT-4: 90968 04/16/2019 ([id number]) OFFICE/OUTPATIENT VISIT EST Diagnosis: Generalized pruritus[ICD10: L29.9] Belia SALAZAR SMayda ZACHARYNDER AssertID [facility] CPT-4: 40149 04/08/2019 ([id number]) OFFICE/OUTPATIENT VISIT EST Diagnosis: Acute bursitis of left shoulder[ICD10: M75.52] Diagnosis: Cervicalgia[ICD10: M54.2] Diagnosis: Chest wall pain[ICD10: R07.89] Belia BRUNSON Bushra Mayda ANUSHKA AssertID [facility] CPT-4: 29628 01/22/2019 ([id number]) OFFICE/OUTPATIENT VISIT EST Diagnosis: Abdominal pain[ICD10: R10.9] Diagnosis: Pyelonephritis[ICD10: N12] Pattie Nortonarely Shi [facility] CPT-4: 13394 01/07/2019 ([id number]) OFFICE/OUTPATIENT VISIT EST Diagnosis: Low back pain[ICD10: M54.5] Diagnosis: Left lumbar radiculopathy[ICD10: M54.16] Diagnosis: Left flank pain[ICD10: R10.9] Diagnosis: Left lower quadrant pain[ICD10: R10.32] Diagnosis: FLU VACCINE[ICD10: Z23] Belia FREDERICK [facility] CPT-4: 60915 12/24/2018 ([id number]) OFFICE/OUTPATIENT VISIT EST Diagnosis: Migraine, unspecified, not intractable, without status migrainosus[ICD10: G43.909] Diagnosis: Fibromyalgia[ICD10: M79.7] Belia DOMIGNUEZ [facility] CPT-4: 48523 11/20/2018 ([id number]) OFFICE/OUTPATIENT VISIT EST Diagnosis: Migraine, unspecified, intractable, without status migrainosus[ICD10: G43.919] Diagnosis: Acute sinusitis, unspecified[ICD10: J01.90] Pattie REID DO [facility] CPT-4: 94667 11/04/2018 ([id number]) OFFICE/OUTPATIENT VISIT EST Diagnosis: Pain in left wrist[ICD10: M25.532] Diagnosis: Other dorsalgia[ICD10: M54.89] Pattie REID DO [facility] CPT-4: 23766 09/08/2018 ([id number]) OFFICE/OUTPATIENT VISIT EST Diagnosis: Acute stress reaction[ICD10: F43.0] Diagnosis: Pruritus, unspecified[ICD10: L29.9] 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, 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] Belia REID [facility] CPT-4: 60033 08/20/2018 ([id number]) OFFICE/OUTPATIENT VISIT EST Diagnosis: Hypotension due to drugs[ICD10: I95.2] Diagnosis: Paroxysmal atrial fibrillation[ICD10: I48.0] Diagnosis: Localized edema[ICD10: R60.0] Belia REID [facility] CPT-4: 75325 06/19/2018 ([id number]) OFFICE/OUTPATIENT VISIT EST Diagnosis: Generalized hyperhidrosis[ICD10: R61] Diagnosis: Essential (primary) hypertension[ICD10: I10] Diagnosis: Supraventricular tachycardia[ICD10: I47.1] Belia REID DO [facility] CPT-4: 62123 06/09/2018 ([id number]) OFFICE/OUTPATIENT VISIT EST Diagnosis: Stridor[ICD10: R06.1] Diagnosis: Dependence on supplemental oxygen[ICD10: Z99.81] Diagnosis: Weakness[ICD10: R53.1] Diagnosis: Supraventricular tachycardia[ICD10: I47.1] Belia REID DO [facility] CPT-4: 10879 05/21/2018 ([id number]) OFFICE/OUTPATIENT VISIT EST Diagnosis: Cervical disc disorder with radiculopathy, unspecified cervical region[ICD10: M50.10] Belia REID [facility] CPT-4: 58356 04/16/2018 ([id number]) OFFICE/OUTPATIENT VISIT EST Diagnosis: Migraine, unspecified, intractable, without status migrainosus[ICD10: G43.919] Diagnosis: Fibromyalgia[ICD10: M79.7] Pattie DOMINGUEZ [facility] CPT-4: 93043 04/01/2018 ([id number]) NURSE/OUTPATIENT VISIT EST Diagnosis: Hematuria, unspecified[ICD10: R31.9] Diagnosis: Dysuria[ICD10: R30.0] Belia REID [facility] CPT-4: 33457 03/17/2018 ([id number]) OFFICE/OUTPATIENT VISIT EST Diagnosis: Erythema intertrigo[ICD10: L30.4] Diagnosis: Chronic obstructive pulmonary disease with (acute) exacerbation[ICD10: J44.1] Diagnosis: Type 2 diabetes mellitus with hyperglycemia[ICD10: E11.65] Belia REID DO [facility] CPT-4: 64313 03/06/2018 ([id number]) OFFICE/OUTPATIENT VISIT EST Diagnosis: Cervicalgia[ICD10: M54.2] Pattiekedar AMBRIZ [facility] CPT-4: 44597 02/05/2018 ([id number]) OFFICE/OUTPATIENT VISIT EST Diagnosis: Candidiasis of skin and nail[ICD10: B37.2] Diagnosis: Cervicalgia[ICD10: M54.2] Pattie AMBRIZ [facility] CPT-4: 69586 01/20/2018 ([id number]) OFFICE/OUTPATIENT VISIT EST Diagnosis: Pain in thoracic spine[ICD10: M54.6] Diagnosis: Radiculopathy, thoracic region[ICD10: M54.14] Belia REID [facility] CPT-4: 77667 12/25/2017 ([id number]) OFFICE/OUTPATIENT VISIT EST Diagnosis: Pain in thoracic spine[ICD10: M54.6] Diagnosis: Other muscle spasm[ICD10: M62.838] Diagnosis: FLU VACCINE[ICD10: Z23] Diagnosis: PNEUMOCOCCAL VACCINE[ICD10: Z23] Belia REID [facility] CPT-4: 77308 12/17/2017 ([id number]) OFFICE/OUTPATIENT VISIT EST Diagnosis: Chronic obstructive pulmonary disease with (acute) exacerbation[ICD10: J44.1] Belia REID [facility] CPT- 4: 34144 10/30/2017 ([id number]) OFFICE/OUTPATIENT VISIT EST Diagnosis: Chronic obstructive pulmonary disease with acute lower respiratory infection[ICD10: J44.0] Diagnosis: Mild intermittent asthma with (acute) exacerbation[ICD10: J45.21] Belia REID [facility] CPT-4: 83544 10/23/2017 ([id number]) NURSE/OUTPATIENT VISIT EST Diagnosis: Migraine, unspecified, not intractable, without status migrainosus[ICD10: G43.909] Belia REID [facility] CPT - 4: 14118 08/26/2017 ([id number]) OFFICE/OUTPATIENT VISIT EST Diagnosis: Urinary tract infection, site not specified[ICD10: N39.0] Diagnosis: Encounter for screening for osteoporosis[ICD10: Z13.820] Diagnosis: Encounter for screening mammogram for malignant neoplasm of breast[ICD10: Z12.31] Diagnosis: Acute bronchitis, unspecified[ICD10: J20.9] Pattie REID DO [facility] CPT-4: 54086 07/19/2017 ([id number]) OFFICE/OUTPATIENT VISIT EST Diagnosis: Rash and other nonspecific skin eruption[ICD10: R21] Pattie REID DO [facility] CPT-4: 80113 05/29/2017 ([id number]) OFFICE/OUTPATIENT VISIT EST Diagnosis: Diarrhea, unspecified[ICD10: R19.7] Diagnosis: Tinea corporis[ICD10: B35.4] Diagnosis: Tinea cruris[ICD10: B35.6] Diagnosis: Migraine, unspecified, not intractable, without status migrainosus[ICD10: G43.909] Belia REID DO [facility] CPT - 4: 49138 05/07/2017 ([id number]) OFFICE/OUTPATIENT VISIT EST Diagnosis: Stridor[ICD10: R06.1] Diagnosis: Chronic obstructive pulmonary disease with (acute) exacerbation[ICD10: J44.1] Belia REID DO [facility] CPT- 4: 66475 03/18/2017 ([id number]) OFFICE/OUTPATIENT VISIT EST Diagnosis: Type 2 diabetes mellitus with hyperglycemia[ICD10: E11.65] Belia REID DO [facility] CPT-4: 97455 02/27/2017 OFFICE/OUTPATIENT VISIT EST Diagnosis: Type 2 diabetes mellitus with hyperglycemia[ICD10: E11.65] Pattie REID DO [facility] CPT-4: 53219 02/22/2017 ([id number]) OFFICE/OUTPATIENT VISIT EST Diagnosis: Urinary tract infection, site not specified[ICD10: N39.0] Diagnosis: Pneumonia, unspecified organism[ICD10: J18.9] Diagnosis: Type 2 diabetes mellitus with hyperglycemia[ICD10: E11.65] Belia REID DO [facility] CPT-4: 10212 01/23/2017 ([id number]) OFFICE/OUTPATIENT VISIT EST Diagnosis: Type 2 diabetes mellitus with hyperglycemia[ICD10: E11.65] Diagnosis: Localized edema[ICD10: R60.0] Diagnosis: PNEUMOCOCCAL VACCINE[ICD10: Z23] Diagnosis: FLU VACCINE[ICD10: Z23] Belia FREDERICK DO [facility] CPT-4: 31787 12/20/2016 OFFICE/OUTPATIENT VISIT EST Diagnosis: Pain in thoracic spine[ICD10: M54.6] Diagnosis: Low back pain[ICD10: M54.5] Diagnosis: Cervicalgia[ICD10: M54.2] Diagnosis: Cough[ICD10: R05] Celeste Hanna BELIA REID [facility] CPT-4: 21470 10/08/2016 ([id number]) OFFICE/OUTPATIENT VISIT EST Diagnosis: Primary insomnia[ICD10: F51.01] Diagnosis: Migraine, unspecified, not intractable, without status migrainosus[ICD10: G43.909] Diagnosis: Type 2 diabetes mellitus with hyperglycemia[ICD10: E11.65] Belia REID [facility] CPT-4: 93676 09/19/2016 ([id number]) OFFICE/OUTPATIENT VISIT EST Diagnosis: Migraine, unspecified, not intractable, without status migrainosus[ICD10: G43.909] Diagnosis: Generalized abdominal pain[ICD10: R10.84] Diagnosis: Cough[ICD10: R05] Belia REID [facility] CPT-4: 99021 08/20/2016 ([id number]) OFFICE/OUTPATIENT VISIT EST Diagnosis: Chronic obstructive pulmonary disease, unspecified[ICD10: J44.9] Diagnosis: Stridor[ICD10: R06.1] Belia REID [facility] CPT-4: 17224 06/19/2016 ([id number]) OFFICE/OUTPATIENT VISIT EST Diagnosis: Chronic obstructive pulmonary disease, unspecified[ICD10: J44.9] Diagnosis: Personal history of urinary (tract) infections[ICD10: Z87.440] Belia REID [facility] CPT-4: 47799 06/04/2016 ([id number]) OFFICE/OUTPATIENT VISIT EST Diagnosis: Stridor[ICD10: R06.1] Diagnosis: Chronic obstructive pulmonary disease with acute lower respiratory infection[ICD10: J44.0] Diagnosis: Other specified diseases of intestine[ICD10: K63.89] Diagnosis: Cystitis, unspecified without hematuria[ICD10: N30.90] Belia REID DO [facility] CPT-4: 76153 05/02/2016 ([id number]) OFFICE/OUTPATIENT VISIT EST Diagnosis: Fibromyalgia[ICD10: M79.7] Diagnosis: Urinary tract infection, site not specified[ICD10: N39.0] Belia REID DO [facility] CPT-4: 80280 04/03/2016 ([id number]) OFFICE/OUTPATIENT VISIT EST Diagnosis: Unspecified asthma, uncomplicated[ICD10: J45.909] Diagnosis: Cough[ICD10: R05] Lidia REID AssertID [facility] T-4: 97950 02/29/2016 ([id number]) OFFICE/OUTPATIENT VISIT EST Diagnosis: Migraine, unspecified, intractable, without status migrainosus[ICD10: G43.919] Diagnosis: Urinary tract infection, site not specified[ICD10: N39.0] Belia REID AssertID [facility] CPT-4: 33899 02/02/2016 ([id number]) OFFICE/OUTPATIENT VISIT EST Diagnosis: Urinary tract infection, site not specified[ICD10: N39.0] Diagnosis: Unspecified abdominal pain[ICD10: R10.9] Diagnosis: Pain in thoracic spine[ICD10: M54.6] Diagnosis: Type 2 diabetes mellitus with diabetic neuropathic arthropathy[ICD10: E11.610] Belia REID AssertID [facility] CPT-4: 40114 12/05/2015 ([id number]) OFFICE/OUTPATIENT VISIT EST Diagnosis: Chronic obstructive pulmonary disease with (acute) exacerbation[ICD10: J44.1] Diagnosis: Migraine, unspecified, not intractable, without status migrainosus[ICD10: G43.909] Lidia REID AssertID [facility] CPT -4: 52047 10/26/2015 ([id number]) OFFICE/OUTPATIENT VISIT EST Diagnosis: Hematuria, unspecified[ICD10: R31.9] Diagnosis: Urinary tract infection, site not specified[ICD10: N39.0] Lidia HSUQUELINE BushraMayda ANUSHKA AssertID [facility] CPT-4: 29378 10/05/2015 OFFICE/OUTPATIENT VISIT EST Diagnosis: Chronic obstructive pulmonary disease, unspecified[ICD10: J44.9] Diagnosis: Muscle weakness (generalized)[ICD10: M62.81] Diagnosis: Polyneuropathy, unspecified[ICD10: G62.9] Diagnosis: Other intervertebral disc degeneration, 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] Diagnosis: Fibromyalgia[ICD10: M79.7] Belia Anushka BELIA Yuridia DOMINGUEZ AssertID [facility] CPT-4: 88148 09/15/2015 ([id number]) OFFICE/OUTPATIENT VISIT EST Diagnosis: Disorientation, unspecified[ICD10: R41.0] Diagnosis: Headache[ICD10: R51] Diagnosis: Paresthesia of skin[ICD10: R20.2] Lidianick Hwang KOFFI Paredes BushraMayda ANUSHKA AssertID [facility] CPT-4: 94872 08/24/2015 ([id number]) OFFICE/OUTPATIENT VISIT EST Diagnosis: Type 2 diabetes mellitus with hyperglycemia[ICD10: E11.65] Diagnosis: Chronic obstructive pulmonary disease with acute lower respiratory infection[ICD10: J44.0] Belia Zacharybeckyotoniel CORNELLBELIA BushraMayda ANUSHKA AssertID [facility] CPT-4: 62777 07/05/2015 ([id number]) OFFICE/OUTPATIENT VISIT EST Diagnosis: Mild intermittent asthma with (acute) exacerbation[ICD10: J45.21] Diagnosis: Chronic obstructive pulmonary disease, unspecified[ICD10: J44.9] Belia Zacharybeckyotoniel BELIA BushraMayda ANUSHKA AssertID [facility] CPT-4: 71887 06/06/2015 ([id number]) OFFICE/OUTPATIENT VISIT EST Diagnosis: Chronic obstructive pulmonary disease with (acute) exacerbation[ICD10: J44.1] Lidia Jaiden BELIA BushraMyada ANUSHKA AssertID [facility] CPT- 4: 38320 05/23/2015 ([id number]) OFFICE/OUTPATIENT VISIT EST Diagnosis: Type 2 diabetes mellitus with hyperglycemia[ICD10: E11.65] Diagnosis: Functional dyspepsia[ICD10: K30] Belia BRUNSON [facility] CPT-4: 62556 05/05/2015 ([id number]) OFFICE/OUTPATIENT VISIT EST Diagnosis: Type 2 diabetes mellitus with hyperglycemia[ICD10: E11.65] Diagnosis: Glycosuria[ICD10: R81] Diagnosis: Urinary tract infection, site not specified[ICD10: N39.0] [facility] 45599 03/30/2015 ([id number]) OFFICE/OUTPATIENT VISIT EST Diagnosis: Generalized abdominal pain[ICD10: R10.84] Diagnosis: Diarrhea, unspecified[ICD10: R19.7] Diagnosis: Urinary tract infection, site not specified[ICD10: N39.0] Diagnosis: Gastro-esophageal reflux disease without esophagitis[ICD10: K21.9] [facility]: 48157 02/03/2015 ([id number]) OFFICE/OUTPATIENT VISIT EST Diagnosis: Other specified noninflammatory disorders of vagina[ICD10: N89.8] Diagnosis: Follicular disorder, unspecified[ICD10: L73.9] Diagnosis: Functional dyspepsia[ICD10: K30] Diagnosis: FLU VACCINE[ICD10: Z23] Belia Shi [facility] CPT-4: 36107 12/29/2014 ([id number]) OFFICE/OUTPATIENT VISIT EST 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] Diagnosis: RESTLESS LEGS SYNDROME[ICD9: 333.94] Diagnosis: MIGRAINE NOS/NOT INTRCBL[ICD9: 346.90] Beliahanna Shi [facility] CPT-4: 71734 09/02/2014 ([id number]) OFFICE/OUTPATIENT VISIT EST Diagnosis: Cervical radiculopathy[ICD9: 723.4] Diagnosis: Cervicalgia[ICD9: 723.1] Diagnosis: Degenerative disc disease, cervical[ICD9: 722.4] 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I[ICD9: 250.00] [facility]: 23651 04/01/2014 OFFICE/OUTPATIENT VISIT EST Diagnosis: Reactive airway disease[ICD9: 493.90] Belia REID DO [facility] CPT-4: 01503 03/16/2014 ([id number]) OFFICE/OUTPATIENT VISIT EST Diagnosis: BRONCHITIS, ACUTE[ICD9: 466.0] Diagnosis: Reactive airway disease[ICD9: 493.90] Belia REID DO [facility] CPT-4: 52147 03/09/2014 OFFICE/OUTPATIENT VISIT EST Diagnosis: BRONCHITIS, ACUTE[ICD9: 466.0] Diagnosis: WHEEZING[ICD9: 786.07] Huong Peguero [facility] CPT-4: 96375 03/03/2014 OFFICE/OUTPATIENT VISIT EST Diagnosis: BRONCHITIS, ACUTE[ICD9: 466.0] Diagnosis: WHEEZING[ICD9: 786.07] Huong Peguero [facility] CPT-4: 18989 03/01/2014 ([id number]) OFFICE/OUTPATIENT VISIT EST Diagnosis: GERD[ICD9: 530.81] Diagnosis: ARTHRALGIA-MULTIPLE SITES[ICD9: 719.49] Diagnosis: LUMB/LUMBOSAC DISC DEGEN[ICD9: 722.52] Diagnosis: - I - FIBROMYALGIA[ICD9: 729.1] Belia CORNELLLINE Yuridia REID [facility] CPT-4: 46589 02/09/2014 ([id number]) OFFICE/OUTPATIENT VISIT EST Diagnosis: Peptic ulcer disease[ICD9: 533.90] Diagnosis: RESTLESS LEGS SYNDROME[ICD9: 333.94] Diagnosis: Neuropathy[ICD9: 355.9] Belia CORNELLLINE Yuridia FREDERICK [facility] CPT-4: 00230 12/23/2013 ([id number]) OFFICE/OUTPATIENT VISIT EST Diagnosis: URINARY TRACT INFECTION[ICD9: 599.0] Belia Zacharynilson HSUQUE CLAYTON BushraMayda ANUSHKA [facility] CPT-4: 12896 10/30/2013 ([id number]) OFFICE/OUTPATIENT VISIT EST Diagnosis: Flank pain[ICD9: 789.00] Belia BRUNSON BushraMayda KIESHA VIRGILIO [facility] CPT-4: 84295 10/21/2013 ([id number]) OFFICE/OUTPATIENT VISIT EST Diagnosis: INFLAMED SEBORR KERATOS[ICD9: 702.11] Diagnosis: Brachioradial pruritus[ICD9: 698.9] Diagnosis: ASTHMA NOS[ICD9: 493.90] Belia BRUNSON BushraMayda KIESHA [facility] CPT-4: 20120 10/05/2013 ([id number]) OFFICE/OUTPATIENT VISIT EST Diagnosis: HYPERTENSION[ICD9: 401.9] Diagnosis: - I - FIBROMYALGIA[ICD9: 729.1] Diagnosis: DIZZINESS/VERTIGO[ICD9: 780.4] Diagnosis: MIGRAINE NOS/NOT INTRCBL[ICD9: 346.90] Diagnosis: Diabetic peripheral neuropathy[ICD9: 250.60] Diagnosis: Flank pain[ICD9: 789.00] Belia Shi KIESHA [facility] CPT-4: 31235 08/04/2013 ([id number]) OFFICE/OUTPATIENT VISIT EST Diagnosis: ALLERGIC RHINITIS[ICD9: 477.9] [facility]: 79157 07/13/2013 OFFICE/OUTPATIENT VISIT EST Diagnosis: URINARY TRACT INFECTION[ICD9: 599.0] [facility]: 01567 07/03/2013 OFFICE/OUTPATIENT VISIT EST Diagnosis: HYPERTENSION[ICD9: 401.9] Diagnosis: URINARY TRACT INFECTION[ICD9: 599.0] Diagnosis: BACKACHE[ICD9: 724.5] Diagnosis: URINARY INCONTINENCE[ICD9: 788.30] Huong [facility]: 38764 05/27/2013 ([id number]) OFFICE/OUTPATIENT VISIT EST Diagnosis: Flank pain[ICD9: 789.00] Belia Shi KIESHA [facility] CPT-4: 93885 05/25/2013 ([id number]) OFFICE/OUTPATIENT VISIT EST Diagnosis: B-COMPLEX DEFIC NEC[ICD9: 266.2] [facility]: 96641 05/04/2013 ([id number]) OFFICE/OUTPATIENT VISIT EST Diagnosis: ALLERGIC RHINITIS[ICD9: 477.9] Diagnosis: Vitamin B12 deficiency[ICD9: 266.2] Belia Humphriesbeckyotoniel HSUROBERTOFelicita DONNA Yuridia REID [facility] CPT-4: 62569 04/17/2013 ([id number]) OFFICE/OUTPATIENT VISIT EST 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I[ICD9: 250.00] Diagnosis: URINARY TRACT INFECTION[ICD9: 599.0] Diagnosis: DIZZINESS/VERTIGO[ICD9: 780.4] Diagnosis: DIARRHEA[ICD9: 787.91] Belia Humphriesnilson BRUNSON BushraMayda RALF Peguero [facility] CPT-4: 39388 04/06/2013 ([id number]) OFFICE/OUTPATIENT VISIT EST Diagnosis: URINARY TRACT INFECTION[ICD9: 599.0] Diagnosis: URINARY RETENTION[ICD9: 788.20] Belia Zacharybeckyotoniel HSUBELIA BushraMayda ANUSHKA [facility] CPT-4: 65081 11/10/2012 ([id number]) OFFICE/OUTPATIENT VISIT EST Diagnosis: TACHYCARDIA[ICD9: 785.0] Diagnosis: SYNCOPE AND COLLAPSE[ICD9: 780.2] Diagnosis: CONSCIOUSNS ALTERAT NEC[ICD9: 780.09] Belia HSUPAUL LUBNA BushraMayda ANUSHKA [facility] CPT-4: 74162 09/02/2012 OFFICE/OUTPATIENT VISIT EST Diagnosis: TACHYCARDIA[ICD9: 785.0] Diagnosis: SYNCOPE AND COLLAPSE[ICD9: 780.2] Belia Zacharynilson Paredes BushraMayda ANUSHKA [facility] CPT-4: 81956 08/04/2012 ([id number]) OFFICE/OUTPATIENT VISIT EST Diagnosis: Loss of consciousness[ICD9: 780.09] Diagnosis: Tachycardia[ICD9: 785.0] Diagnosis: MALAISE AND FATIGUE[ICD9: 780.79] Belia Zacharynilson Paredes BushraMayda ANUSHKA [facility] CPT-4: 44889 07/21/2012 ([id number]) OFFICE/OUTPATIENT VISIT EST Diagnosis: BRONCHITIS, ACUTE[ICD9: 466.0] Diagnosis: ASTHMA NOS[ICD9: 493.90] Belia BRUNSON BushraMayda KIESHARegino POOLE [facility] CPT-4: 09719 07/02/2012 ([id number]) OFFICE/OUTPATIENT VISIT EST Diagnosis: CEPHALGIA[ICD9: 784.0] Belia CORNELLLINE BushraMayda RALF Peguero [employer] CPT-4: 75377 06/25/2012 ([id number]) OFFICE/OUTPATIENT VISIT EST Diagnosis: GERD[ICD9: 530.81] Diagnosis: DIARRHEA[ICD9: 787.91] Diagnosis: URINARY TRACT INFECTION[ICD9: 599.0] Diagnosis: ASTHMA NOS[ICD9: 493.90] Diagnosis: ALLERGIC RHINITIS[ICD9: 477.9] Belia CORNELLLINE Bushra Mayda ANUSHKA AssertID [facility] CPT-4: 08465 06/24/2012 ([id number]) OFFICE/OUTPATIENT VISIT EST Diagnosis: MIGRAINE NOS/NOT INTRCBL[ICD9: 346.90] Diagnosis: TREMOR NEC[ICD9: 333.1] Diagnosis: CHRONIC PAIN SYNDROME[ICD9: 338.4] Belia BASS MARIE BushraMayda ANUSHKA AssertID [facility] CPT-4: 92412 05/20/2012 ([id number]) OFFICE/OUTPATIENT VISIT EST Diagnosis: DIZZINESS/VERTIGO[ICD9: 780.4] Diagnosis: PALPITATIONS[ICD9: 785.1] Diagnosis: TREMOR NEC[ICD9: 333.1] Diagnosis: ANXIETY STATE NOS[ICD9: 300.00] Diagnosis: POSTTRAUMATIC STRESS DISORDER[ICD9: 309.81] Belia CORNELLLINE BushraMayda ANUSHKA [employer] CPT-4: 04723 05/08/2012 ([id number]) OFFICE/OUTPATIENT VISIT EST Diagnosis: MIGRAINE NOS/NOT INTRCBL[ICD9: 346.90] Diagnosis: FIBROMYALGIA[ICD9: 729.1] Diagnosis: SYNCOPE AND COLLAPSE[ICD9: 780.2] Diagnosis: Diabetic peripheral neuropathy[ICD9: 250.60] Belia CORNELLLINE BushraMayda ANUSHKA AssertID [facility] CPT-4: 13515 04/22/2012 OFFICE/OUTPATIENT VISIT EST Diagnosis: ROTATOR CUFF DIS NEC[ICD9: 726.19] Diagnosis: JOINT PAIN-SHLDER[ICD9: 719.41] Diagnosis: DYSPEPSIA[ICD9: 536.8] Belia Zacharynilson BELIA BushraMayda RALF Peguero [employer] CPT-4: 75664 02/13/2012 ([id number]) OFFICE/OUTPATIENT VISIT EST Diagnosis: MIGRAINE NOS/NOT INTRCBL[ICD9: 346.90] Diagnosis: GERD[ICD9: 530.81] Diagnosis: DYSPEPSIA[ICD9: 536.8] Belia Peguero [facility] CPT-4: 41074 01/28/2012 OFFICE/OUTPATIENT VISIT EST Diagnosis: CEPHALGIA[ICD9: 784.0] Diagnosis: MIGRAINE NOS/NOT INTRCBL[ICD9: 346.90] Diagnosis: GERD[ICD9: 530.81] Diagnosis: INSOMNIA NOS[ICD9: 780.52] Belia HSUQUELINE Yuridia DOMINGUEZ [facility] CPT-4: 23350 12/26/2011 ([id number]) OFFICE/OUTPATIENT VISIT EST Diagnosis: CEPHALGIA[ICD9: 784.0] Diagnosis: MIGRAINE NOS/NOT INTRCBL[ICD9: 346.90] Diagnosis: MALAISE AND FATIGUE[ICD9: 780.79] Diagnosis: FIBROMYALGIA[ICD9: 729.1] Diagnosis: ALLERGIC RHINITIS[ICD9: 477.9] Belia CORNELLLINE Bushra Mayda ANUSHKA [facility] CPT-4: 04841 11/14/2011 ([id number]) OFFICE/OUTPATIENT VISIT EST Diagnosis: MALAISE AND FATIGUE[ICD9: 780.79] Diagnosis: MUSCLE WEAKNESS-GENERAL[ICD9: 728.87] Diagnosis: MIGRAINE NOS/NOT INTRCBL[ICD9: 346.90] Diagnosis: JOINT PAIN-SHLDER[ICD9: 719.41] Belia Zacharybeckyotoniel HSUBELIA BushraMayda ANUSHKA [facility] CPT-4: 03527 09/12/2011 ([id number]) OFFICE/OUTPATIENT VISIT EST Diagnosis: CONCUSSION[ICD9: 850.9] Diagnosis: Ataxia[ICD9: 781.3] Diagnosis: DIZZINESS/VERTIGO[ICD9: 780.4] Beliahanna CORNELLLINE Bushra Mayda ANUSHKA [facility] CPT-4: 45170 08/15/2011 ([id number]) OFFICE/OUTPATIENT VISIT EST Diagnosis: THROMBOPHLEBITIS[ICD9: 451.9] Diagnosis: Subacromial bursitis[ICD9: 726.19] Diagnosis: ALLERGIC RHINITIS[ICD9: 477.9] Diagnosis: Lipoma[ICD9: 214.9] Belia REID [facility] CPT-4: 62837 08/09/2011 ([id number]) OFFICE/OUTPATIENT VISIT EST Diagnosis: THROMBOPHLEBITIS[ICD9: 451.9] Diagnosis: Arm pain[ICD9: 729.5] Diagnosis: Clostridium difficile colitis[ICD9: 008.45] Diagnosis: URINARY TRACT INFECTION[ICD9: 599.0] [facility]: 53940 07/03/2011 ([id number]) OFFICE/OUTPATIENT VISIT EST Diagnosis: ARTHRALGIA-MULTIPLE SITES[ICD9: 719.49] Diagnosis: Muscle cramp[ICD9: 729.82] Diagnosis: INSOMNIA NOS[ICD9: 780.52] [facility]: 29443 06/04/2011 OFFICE/OUTPATIENT VISIT EST Diagnosis: Headache[ICD9: 784.0] Diagnosis: Allergic rhinitis[ICD9: 477.9] [facility]: 61451 05/03/2011 OFFICE/OUTPATIENT VISIT EST Diagnosis: LUMB/LUMBOSAC DISC DEGEN[ICD9: 722.52] Diagnosis: MIGRAINE NOS/NOT INTRCBL[ICD9: 346.90] Diagnosis: CHRONIC PAIN SYNDROME[ICD9: 338.4] Diagnosis: RESTLESS LEGS SYNDROME[ICD9: 333.94] [facility]: 76342 04/05/2011 OFFICE/OUTPATIENT VISIT EST Diagnosis: MIGRAINE NOS/NOT INTRCBL[ICD9: 346.90] Diagnosis: GERD[ICD9: 530.81] [facility]: 73887 03/08/2011 OFFICE/OUTPATIENT VISIT EST Diagnosis: URINARY TRACT INFECTION[ICD9: 599.0] Diagnosis: Vertigo[ICD9: 780.4] Diagnosis: GERD[ICD9: 530.81] [facility]: 58123 01/24/2011 OFFICE/OUTPATIENT VISIT EST Diagnosis: Hypotension[ICD9: 458.9] Diagnosis: Syncopal episodes[ICD9: 780.2] Diagnosis: MIGRAINE NOS/NOT INTRCBL[ICD9: 346.90] Diagnosis: MALAISE AND FATIGUE[ICD9: 780.79] Belia Shi [facility] CPT-4: 16222 01/02/2011 OFFICE/OUTPATIENT VISIT EST Diagnosis: Tinea cruris[ICD9: 110.3] Diagnosis: Intertrigo[ICD9: 695.89] Diagnosis: MIGRAINE NOS/NOT INTRCBL[ICD9: 346.90] Belia COKER SMayda [facility] CPT-4: 39813 12/07/2010 OFFICE/OUTPATIENT VISIT EST Diagnosis: PALPITATIONS[ICD9: 785.1] Diagnosis: ANXIETY STATE NOS[ICD9: 300.00] Belia Shi [facility] CPT-4: 17349 11/16/2010 OFFICE/OUTPATIENT VISIT EST Diagnosis: URINARY TRACT INFECTION[ICD9: 599.0] Diagnosis: MIGRAINE NOS/NOT INTRCBL[ICD9: 346.90] Iraida COKER SMayda ZACHARYNDER DO [facility] CPT-4: 39494 11/02/2010 OFFICE/OUTPATIENT VISIT EST Diagnosis: ALLERGIC RHINITIS[ICD9: 477.9] Diagnosis: ANXIETY STATE NOS[ICD9: 300.00] Belia Shi ZACHARYNDER DO [facility] CPT-4: 48727 10/18/2010 OFFICE/OUTPATIENT VISIT EST Belia HUMPHRIES NDER DO [facility] CPT- 4: 95246 09/19/2010 OFFICE/OUTPATIENT VISIT EST Belia HUMPHRIES NDER DO [facility] CPT- 4: 64717 09/06/2010 ([id number]) OFFICE/OUTPATIENT VISIT EST Belia COKER SMayda ORENDER DO [facility] CPT-4: 71009 08/10/2010 ([id number]) OFFICE/OUTPATIENT VISIT EST Belia COKER SMayda ORENDER DO [facility] CPT-4: 82689 05/11/2010 ([id number]) OFFICE/OUTPATIENT VISIT, [facility] CPT-4: 60855 04/06/2010 ([id number]) OFFICE/OUTPATIENT VISIT, [facility] CPT-4: 05032 02/09/2010 ([id number]) OFFICE/OUTPATIENT VISIT, [facility] CPT-4: 96852 01/05/2010 ([id number]) OFFICE/OUTPATIENT VISIT, EST Belia [facility]SU [facility] CPT-4: 72508 12/07/2009 ([id number]) OFFICE/OUTPATIENT VISIT, EST Belia MEJIALINE [facility] CPT-4: 62387 11/08/2009 ([id number]) OFFICE/OUTPATIENT VISIT, EST Belia MEJIALINE [facility] CPT-4: 27166 10/24/2009 ([id number]) OFFICE/OUTPATIENT VISIT, [facility] CPT-4: 23494 07/25/2009 ([id number]) OFFICE/OUTPATIENT VISIT, RIOS [facility] CPT-4: 00005 05/26/2009 Plan of Care Planned Activity Notes Codes Status Date Visit Diagnosis Plan: Generalized pain Discussion: Hyp ersensitivity to pain Unable to do pain meds due to routine ativan use ICD-9 : 780.96 ICD-10 : R52 08/25/2019 Visit Diagnosis Plan: Muscle weakness Discussion: Rout ine ativan may be contributing Elevated BS may be contributing as well ICD-9 : 728.87 ICD-10 : M62.81 08/25/2019 Visit Diagnosis Plan: Fibromyalgia Discussion: Did not tolerate gabapentin due to side effects ICD-9 : 729.1 ICD-10 : M79.7 08/25/2019 Visit Diagnosis Plan: Hypoxia Discussion: Not using ox ygen today Is supposed to be on oxygen 24hrs a day ICD-9 : 799.02 ICD-10 : R09.02 08/25/2019 Patient Education: meloxicam- [employer] Coupon [id number] https://www.[employer]Spring/[employer]/resources/getResource/61/gg59w2x2-1tiu-1178-f7 Completed 08/25/2019 Patient Education: baclofen- [employer] Coupon [id number] https://www.[employer],SL/[employer]/resources/getResource/61/j15y172k-7m2k-38r4-cy Completed 08/25/2019 Visit Diagnosis Plan: Yawning Discussion: discussed wi th patient that could be r/t her lexapro since her yawning has been present for at least a year andher lexapro was started a year ago. she hasn't taken lexapro for a week though and her mood is stable so instructed her to remain off of the lexapro for now to see if symptoms improve after a couple more weeks. instructed to drink more water to push medication through her system. also informed patient that it could be r/t lack of oxygen since patient doesn't wear her oxygen when she's out in public but her levels have remained stable. patient was tested for sleep apnea years a go which showed she did have sleep apnea but patient has refused to wear cpap. will order a new home sleep study on patient through [place] to assess severity of symptoms, patient does wear her oxygen at night though. educated on importance of wearing oxygen at all times, even when in public. ICD-9 : 786.09 ICD-10 : R06.89 08/10/2019 Appointment: Pattie Sotomayor [address] [place] [address] ACUTE ILLNESS 08/10/2019 Visit Diagnosis Plan: Left leg swelling Discussion: daren lang has had ultrasound of leg and ct of pelvis within the last couple months with no abnormalities. will order mri of left lower extremity to rule out any masses. ICD-9 : 729.81 ICD-10 : M79.89 08/04/2019 Visit Diagnosis Plan: Constipation Discussion: samples of linzess 72 given to patient with instructions on use. call office in 1 week with update. ICD-9 : 564.00 ICD-10 : K59.00 08/04/2019 Visit Diagnosis Plan: Dyspnea Discussion: has had rece nt cta. is due for updated ct without contrast due to adenopathy. will order. ICD-9 : 786.09 ICD-10 : R06.00 08/04/2019 Visit Diagnosis Plan: Pelvic pain in female Discussion : could be r/t constipation so will see how linzess works. ICD-9 : 625.9 ICD-10 : R10.2 08/04/2019 Appointment: Pattie Sotomayor [address] [place] [address] ACUTE ILLNESS 08/04/2019 Visit Diagnosis Plan: Inspiratory stridor Discussion: Continue oxygen via NC at 2 L Continue ativan at QID Follow Up: 4 weeks ICD-9 : 786.1 ICD-10 : R06.1 07/06/2019 Visit Diagnosis Plan: Diarrhea Discussion: Restart Col estid at once daily ICD-9 : 787.91 ICD-10 : R19.7 07/06/2019 Appointment: Belia Reid WPtel: [facility] TELEMEDICINE 07/06/2019 Visit Diagnosis Plan: Left leg swelling Discussion: [...] ICD-9 : 786.09 ICD-10 : R06.00 06/24/2019 Appointment: Belia Reid WPtel: [phone] TELEMEDICINE 06/24/2019 Visit Diagnosis Plan: Colitis Discussion: Levaquin/Fla gyl Hardeman Diet ICD-9 : 558.9 ICD-10 : K52.9 06/16/2019 Visit Diagnosis Plan: Acute bronchitis Discussion: Cov er with levaquin Increase SVNs with albuterol to QID Has oxygen using q HS routinely and prn To ER if oxygen levels drop or worsening respiratory symptoms ICD-9 : 466.0 ICD-10 : J20.9 06/16/2019 Appointment: Belia Reid WPtel: [address] [place] [address] TELEMEDICINE 06/16/2019 Patient Education: Levaquin- [employer]RX Coupon [phone] [id number] https://www.[employer],SL/[employer]/resources/getResource/61/69x78vvi-5vf7-39k3-78 Completed 06/16/2019 Visit Diagnosis Plan: Diarrhea Discussion: Vancomycin for 10 days and notify if not improving or worsening BLAND diet Hydrate ICD-9 : 787.91 ICD-10 : R19.7 06/08/2019 Appointment: Belia Reid WPtel: [address] [place] [address] TELEMEDICINE 06/08/2019 Visit Diagnosis Plan: Colitis Discussion: Flagyl plus cipro to cover for both colitis and UTI Notify or to ER if worsening ICD-9 : 558.9 ICD-10 : K52.9 05/26/2019 Visit Diagnosis Plan: Acute febrile illness Discussion : Notify if worsens ICD-9 : 780.60 ICD-10 : R50.9 05/26/2019 Appointment: Belia Reid WPtel: [address] [place] [address] TELEMEDICINE 05/26/2019 Appointment: Pattie Sotomayor [address] [place] [address] RESCHEDULED 05/18/2019 Visit Diagnosis Plan: Chronic obstructive pulmonary di sease, unspecified Discussion: Recommend pulmonary rehab Patient states she never went to pulmonary rehab due to cost as well as transportation issues Finish trelagy Stop singulair Decrease hydroxyzine to 25mg po q HS Fwup [address] scan of Chest results discussed ICD-9 : 496 ICD-10 : J44.9 05/13/2019 Appointment: Belia Reid WPtel: [address] [place], [place] [id number] Hospital Follow Up 05/13/2019 Visit Diagnosis Plan: COUGH Discussion: Check CT scan of chest ICD-9 : 786.2 ICD-10 : R05 05/06/2019 Visit Diagnosis Plan: Stridor Discussion: Add Trelagy 1 p daily Add Singulair May need to see new cnmt ICD-9 : 786.1 ICD-10 : R06.1 05/06/2019 Appointment: Belia Reid WPtel: [address] [place], [place] [phone] FOLLOW UP 05/06/2019 Patient Education: Singulair- OptimizeRX [place] [phone] https://www.[employer],SL/[employer]/resources/getResource/61/7697083v-e21e-41k4-mn Completed 05/06/2019 Appointment: Belia Reid WPtel: [address] [place], [place] [phone] [place] RESCHEDULED 04/30/2019 Visit Diagnosis Plan: Stridor [...] : G25.5 04/29/2019 Appointment: Belia Reid WPtel: [address] [place], [place] [phone] Hospital Follow Up 04/29/2019 Patient Education: Valium- OptimizeRX Coupon [id number] https://www.[employer],SL/samplemd/resources/getResource/61/m23514ez-121h-1z69-3h Completed 04/29/2019 Visit Diagnosis Plan: Flank pain [...] ICD-10 : R63.5 04/16/2019 Appointment: Pattie Sotomayor [address] [place] [address] ACUTE ILLNESS 04/16/2019 Patient Education: cyclobenzaprine- OptimizeRX Coupon [id number] https://www.[employer],SL/[employer]/resources/getResource/61/jf08r9u1-8854-9698-a4 Completed 04/16/2019 Visit Diagnosis Plan: Migraine, unspecif ied, not intractable, without status migrainosus Discussion: Increase gabapentin to 600mg po BID ICD-9 : 346.90 ICD-10 : G43.909 04/08/2019 Visit Diagnosis Plan: Generalized pruritus Discussion: Hydroxyzine 25mg po TID for itching and anxiety ICD-9 : 698.9 ICD-10 : L29.9 04/08/2019 Appointment: Belia Reid WPtel: [address] [place] [address] ACUTE ILLNESS 04/08/2019 Visit Diagnosis Plan: Cervicalgia [...] : M75.52 01/22/2019 Appointment: Belia Reid WPtel: [facility] Hospital Follow Up 01/22/2019 Visit Diagnosis Plan: Abdominal pain Discussion: urine culture sent to assess for any infection. rocephin given in office to cover for pyelonephritis. instructed to push fluids. call office with any new or worsening symptoms. ICD-9 : 789.00 ICD-10 : R10.9 01/07/2019 Appointment: Pattie Sotomayor [address] [place] [address] ACUTE ILLNESS 01/07/2019 Visit Diagnosis Plan: Low back pain Discussion: Stat C T of abdomen/pelvis now ICD-9 : 724.2 ICD-10 : M54.5 12/24/2018 Appointment: Belia Reid WPtel: [address] [place] [address] FOLLOW UP 12/24/2018 Visit Diagnosis Plan: Migraine, [...] : M79.7 11/20/2018 Appointment: Belia Reid WPtel: [address] [place] [address] ACUTE ILLNESS 11/20/2018 Patient Education: baclofen- [employer] Coupon [id number] https://www.[employer]Spring/samplemd/resources/getResource/61/1z8417b1-zy6f-81by-13 Completed 11/20/2018 Visit Diagnosis Plan: Migraine, unspecif ied, intractable, without status migrainosus Discussion: toradol/phenergan given in o ffice (60 mg toradol, 12.5 mg phenergan). instructed to call if no improvement or worsening. instructed to follow up with director of home economics since headaches are occurring more frequently to make sure vision is not the cause. ICD-9 : 346.91 ICD-10 : G43.919 11/04/2018 Visit Diagnosis Plan: Acute sinusitis, unspecified Dis cussion: zithromax prescribed to cover for sinus infection due to length of symptoms and clinincal s/s. ICD-9 : 461.9 ICD-10 : J01.90 11/04/2018 Appointment: Pattie Sotomayor [address] [place], [place] [email or web address]] ACUTE ILLNESS 11/04/2018 Appointment: Belia Reid WPtel: [address] [place], [place] [phone] [place] CANCELED 09/24/2018 Visit Diagnosis Plan: Type 2 diabetes me llitus with diabetic neuropathy, unspecified Discussion: Retry gabapentin 300mg po q HS ICD-9 : 250.60 ICD-10 : E11.40 09/18/2018 Visit Diagnosis Plan: Vitamin D deficiency, unspecifie d Discussion: Increase Vitamin D3 to 10,000 u daily ICD-9 : 268.9 ICD-10 : E55.9 09/18/2018 Visit Diagnosis Plan: Encounter for [facility] adult medical examination without abnormal findings [...] : I10 09/18/2018 Appointment: Belia Reid WPtel: [address] [place], [place] [phone] Annual Well Visit 09/18/2018 Patient Education: gabapentin- OptimizeRX Coupon [id number] https://www.[employer].com/samplemd/resources/getResource/61/5e15yj30-1ez7-5xih-y5 Completed 09/18/2018 Visit Diagnosis Plan: Pain in [...] ICD-10 : M54.89 09/08/2018 Appointment: Pattie Sotomayor [address] [place], [place] [id number] ACUTE ILLNESS 09/08/2018 Patient Education: prednisone- OptimizeRX Coupon [id number] https://www.[employer]Spring/samplemd/resources/getResource/61/2j4cn79h-[email or web address]-qd Completed 09/08/2018 Visit Diagnosis Plan: Pruritus, unspecified [...] 250.03 ICD-10 : E10.9 08/20/2018 Appointment: Belia Reidtel: 2[address] [facility] ACUTE ILLNESS 08/20/2018 Patient Education: Lexapro- OptimizeRX Coupon [id number] Completed 08/20/2018 Patient Education: hydroxyzine HCl- OptimizeRX Coupon [id number] Completed 08/20/2018 Care Plan: MAMMOGRAM SCREENING LOINC : 2 6347-5 Pending 08/20/2018 Visit Diagnosis Plan: Paroxysmal atrial fibrillation D iscussion: Discuss eliquis need with cardiology at [facility] due to cost ICD-9 : 427.31 ICD-10 : I48.0 06/19/2018 Visit Diagnosis Plan: Hypotension due to drugs Discuss ion: Discussed decreasing cardizem dose due to low BP and edema but sees cardiology next week Follow Up: 1 months ICD-9 : 458.8 ICD-10 : I95.2 06/19/2018 Appointment: Belia Reid WPtel: [address] [place], [place] [phone] [place] FOLLOW UP 06/19/2018 Visit Diagnosis Plan: [...] : R61 06/09/2018 Appointment: Belia Reid WPtel: [address] [place], [place] [phone] [place] FOLLOW UP 06/09/2018 Care Plan: CHEST X-RAY 2VW FRONTAL&LATL LOINC : 92626-2 Pending 05/26/2018 Visit Diagnosis Plan: Supraventricular tachycardia [...] : R53.1 05/21/2018 Appointment: Belia Reid WPtel: [facility]4 [facility] Hospital Follow Up 05/21/2018 Visit Diagnosis Plan: Cervical disc diso rder with radiculopathy, unspecified cervical region Discussion: Scheduled for surgery on 06/02 10/[address] Faulkner ICD-9 : 722.0 ICD-10 : M50.10 04/16/2018 Appointment: Belia Reid WPtel: [address] [place], [place] [phone] [place] [address] Follow Up 04/16/2018 Visit Diagnosis Plan: Fibromyalgia [...] : G43.919 04/01/2018 Appointment: Pattie Sotomayor [address] [place] [address] ACUTE ILLNESS 04/01/2018 Appointment: Belia Reid WPtel: [address] [place] [address] 03/17/2018 Visit Diagnosis Plan: Chronic obstructiv e [...] 250.02 ICD-10 : E11.65 03/06/2018 Appointment: Belia eRid WPtel: [address] [place] [address] Hospital Follow Up 03/06/2018 Visit Diagnosis Plan: Cervicalgia Discussion: spoke wi th dr. reid about patient. increased gabapentin to bid and started on celebrex bid. tramadrol rx written out to take prn. keep scheduled appt next week for myelogram. ICD-9 : 723.1 ICD-10 : M54.2 02/05/2018 Appointment: Bran, Pattie R. [address] [place], [place] [id number] ACUTE ILLNESS 02/05/2018 Care Plan: X-RAY EXAM NECK SPINE 4/5VWS cervical LOINC : 59050-6 Pending 01/21/2018 Visit Diagnosis Plan: Candidiasis of [...] : 723.1 ICD-10 : M54.2 01/20/2018 Appointment: Bran Pattie R. [address] [place], [place] [phone] [[email or web address]] ACUTE ILLNESS 01/20/2018 Visit Diagnosis Plan: Pain in thoracic spine Discussio n: Proceed with CT scan of thoracic spine Will likely need PT ICD-9 : 724.1 ICD-10 : M54.6 12/25/2017 Appointment: Belia Reid WPtel: [phone] FOLLOW UP 12/25/2017 Care Plan: CT THORAX W/O DYE LOINC : 473 66-0 Pending 12/25/2017 Visit Diagnosis Plan: Pain in thoracic spine Discussio n: Stretches Alternated heat/ice Topical aspercreme with lidocaine Flexeril Recheck 1 week Flu and Pneumovax given ICD-9 : 724.1 ICD-10 : M54.6 12/17/2017 Appointment: Belia Reid WPtel: [address] ACUTE ILLNESS 12/17/2017 Patient Education: Patient Medication Summary Completed 12/17/2017 Visit Diagnosis Plan: Chronic obstructiv e pulmonary disease with (acute) exacerbation Discussion: Per patient nothing has help ed--has done antibiotics, prolonged steroids, trelagy, breathing treatments Recommend add mucinex but patient does not want to try this because does not want to drink more water Add Singgabyir 10mg q HS ICD-9 : 491.21 ICD-10 : J44.1 10/30/2017 Appointment: Belia Reidtel: [address] [place], [place] [phone] [place] FOLLOW UP 10/30/2017 Patient Education: Patient Medication Summary Completed 10/30/2017 Visit Diagnosis Plan: Chronic obstructiv e pulmonary disease with acute lower respiratory infection Discussion: Continue SVNs with albuterol q4hrs Add Trelagy 1 inhalation daily Finish steroids Increase water intake Follow Up: 1 weeks ICD-9 : 496 ICD-10 : J44.0 10/23/2017 Appointment: Belia Reidtel: [address] [place] [address] US WORK IN 10/23/2017 Patient Education: Patient Medication Summary Completed 10/23/2017 Appointment: Belia Reidtel: [address] [place], [place] [phone] [place] NO SHOW 10/16/2017 Visit Diagnosis Plan: Confusional [...] : E11.65 09/17/2017 Appointment: Belia Reidtel: [address] [place], [place] [phone] Annual Well Visit 09/17/2017 Patient Education: Patient Medication Summary Completed 09/17/2017 Appointment: Belia Reidtel: [address] [place], [place] [phone] [place] INJECTION 08/26/2017 Patient Education: Patient Medication Summary Completed 08/26/2017 Appointment: Belia Reidtel: [phone] [id number] [place] CANCELED 07/31/2017 Visit Diagnosis Plan: Encounter [...] : J20.9 07/19/2017 Appointment: Pattie Sotomayor [address] [employer] [employer] [facility] ACUTE ILLNESS 07/19/2017 Patient Education: Patient Medication Summary Completed 07/19/2017 Care Plan: MAMMOGRAM SCREENING LOINC : 2 6347-5 Pending 07/19/2017 Patient Education: Patient Medication Summary Completed 06/05/2017 Care Plan: LIPID PANEL LOINC : 69890-3 Pending 06/05/2017 Care Plan: A1C HPLC LOINC : 26087-7 Pending 06/05/2017 Visit Diagnosis Plan: Rash and [...] : R21 05/29/2017 Appointment: Pattie Sotomayor [address] [id number] FOLLOW UP 05/29/2017 Patient Education: Patient Medication Summary Completed 05/29/2017 Visit Diagnosis Plan: Tinea corporis Discussion: Diflu can and topical nystatin Follow Up: 2 weeks ICD-9 : 110.5 ICD-10 : B35.4 05/07/2017 Visit Diagnosis Plan: Diarrhea, unspecified Discussion : Diflucan Cholestyramine Recheck 2weeks ICD-9 : 787.91 ICD-10 : R19.7 05/07/2017 Appointment: Belia Reid WPtel: [address] [place], [place] [phone] US FOLLOW UP 05/07/2017 Patient Education: Patient Medication Summary Completed 05/07/2017 Appointment: Belia Reid WPtel: [address] [place], [place] [phone] US RESCHEDULED 04/30/2017 Visit Diagnosis Plan: Chronic obstructiv e pulmonary disease with (acute) exacerbation Discussion: Finish prednisone Continue S VNS with albuterol ICD-9 : 491.21 ICD-10 : J44.1 03/18/2017 Visit Diagnosis Plan: Stridor Discussion: Increase Ati van 0.5mg po to TID routinely for next week then can go back to prn ICD-9 : 786.1 ICD-10 : R06.1 03/18/2017 Appointment: Belia Reid WPtel: [address] [place], [place] [phone] ER Follow UP 03/18/2017 Patient Education: Patient [...] : E11.65 02/27/2017 Appointment: Belia Reid WPtel: [address] [place], [place] [phone] [place] FOLLOW UP 02/27/2017 Patient Education: Patient [...] : E11.65 02/22/2017 Appointment: Pattie Sotomayor 504 [facility] ACUTE ILLNESS 02/22/2017 Patient Education: Patient Medication Summary Completed 02/22/2017 Patient Education: Trulicity - 18+ Comple mague 02/22/2017 Visit Diagnosis Plan: Urinary tract infection, site no t specified Discussion: Sejal levaquin ICD-9 : 599.0 ICD-10 : N39.0 01/23/2017 Visit Diagnosis Plan: Type 2 diabetes mellitus with hy perglycemia Discussion: Increase amaryl to 4mg po BID Accuchecks TID Follow Up: 1 months ICD-9 : 250.02 ICD-10 : E11.65 01/23/2017 Visit Diagnosis Plan: Pneumonia, unspecified organism Discussion: Maria Antonia guptaquin then do doxycycline for 2 weeks then will plan on repeat CT scan of lungs in 3mos ICD-9 : 486 ICD-10 : J18.9 01/23/2017 Appointment: Belia Reid WPtel: [facility]9 [facility] ER Follow UP 01/23/2017 Patient Education: Patient Medication Summary Completed 01/23/2017 Appointment: Pattie Sotomayor [address] [place], [place] [address] [facility] US CANCELED 01/17/2017 Appointment: Pattie Sotomayor [address] [place], [place] [phone] Annual Well Visit 01/14/2017 Visit Diagnosis Plan: Type 2 diabetes mellitus with hy perglycemia Discussion: Check CMP, HbA1C Flu shot and Prevnar 13 given Follow Up: 3 months ICD-9 : 250.02 ICD-10 : E11.65 12/20/2016 Visit Diagnosis Plan: Localized edema Discussion: Low Na diet Compression socks/Elevate feet ICD-9 : 782.3 ICD-10 : R60.0 12/20/2016 Appointment: Belia Reid WPtel: [address] [place] [address] FOLLOW UP 12/20/2016 Patient Education: Patient Medication Summary Completed 12/20/2016 Patient Education: Patient Medication Summary Completed 10/10/2016 Visit Plan: Xrays of cervical, thoracic and lumbar spine at [facility] for Mobic (stop NSAIDS except Tylenol) and Flexeril UA sent for C&S Using SVN Call in 2-3 days if pain not improved or any worsening 10/08/2016 Appointment: Celeste Ferreira WPtel: [address] [place], [place] [phone] [[email or web address]] ACUTE ILLNESS 10/08/2016 Patient Education: Patient Medication [...] : E11.65 09/19/2016 Appointment: Belia Reid WPtel: [facility]3 [facility] 09/18 confirmed`sl FOLLOW UP 09/19/2016 Patient Education: [...] : R10.84 08/20/2016 Appointment: Belia Reid WPtel: [address] [place] [address] 08/16 confirmed~sl FOLLOW UP 08/20/2016 Patient Education: [...] J44.9 06/19/2016 Appointment: Belia Reid WPtel: [address] [place], [place] [phone] 06/18 confirmed ~ Hospital Follow Up 06/19/2016 [...] : Z87.440 06/04/2016 Appointment: Belia Reid WPtel: [address] [place] [address] [place] 06/01 confirmed~sl FOLLOW UP 06/04/2016 Patient [...] : R06.1 05/02/2016 Appointment: Belia Reid WPtel: [address] [place], [place] [address] 05/01 [facility] Follow Up 05/02/2016 Patient Education: Patient [...] : N39.0 04/03/2016 Appointment: Belia Reid WPtel: [address] [place], [place] [phone] [facility] 04/03/2016 Patient Education: Patient Medication Summary Completed 04/03/2016 Visit Plan: Lungs are clear Her symptoms and exam are all upper airway restriction/constriction Can try supportive care Rx as above Follow up PRN 02/29/2016 Appointment: Lidia Hwang [address] [place], [place] [email or web address] ACUTE ILLNESS 02/29/2016 Patient Education: Patient Medication Summary Completed 02/29/2016 Visit Plan: Toradol/Phenergan today for Migraine Change to Clindamycin to cover lactobacillus for UTI Cover with flagyl due to hx of C. Diff 02/02/2016 Appointment: Belia Reid WPtel: [address] [place], [place] [phone] 01/31 confirmed`sl ACUTE ILLNESS 02/02/2016 Patient Education: Patient Medication Summary Completed 02/02/2016 Visit Plan: Increase neurontin to 300mg q AM and 600mg q PM Discussed neurology re-evaluation Flu shot given Need to check on Pneumonia shot Rx written out for albuterol 01/05/2016 Appointment: Belia Reid WPtel: [address] [place], [place] [phone] 01/03 confirmed ~sl Annual Well Visit 01/05/2016 Patient Education: Patient Medication Summary Completed 01/05/2016 Visit Plan: Cipro Culture urine hydrate Flexeril refilled Alternate heat and ice for back Increase gabapentin to 300mg po BID Notify if worsens 12/05/2015 Appointment: Belia Reid WPtel: [address] [place], [place] [phone] 11/30 confirmed~sl ACUTE ILLNESS 12/05/2015 Patient Education: Patient Medication Summary Completed 12/05/2015 Patient Education: Patient Medication Summary Completed 10/27/2015 Care Plan: COMPREH[place] METAB[place] : 319[address]-9 Pending 10/27/2015 Care Plan: A1C HPLC LOINC : 01578-9 Pending 10/27/2015 Visit Plan: Lungs are CTA today and is f eeling improved overall Finish meds as ordered Continue inhalers and neb treatments Discussed migraine treatment options She does not feel she needs anything additional added today Refill of Januvia sent since no samples are available today 10/26/2015 Appointment: Lidia Hwang [address] [place], [place] [address] Hospital Follow Up 10/26/2015 Appointment: Lidia Hwang [address] [place], [place] [phone] CANCELED 10/26/2015 Patient Education: Patient Medication Summary Completed 10/26/2015 Patient Education: Natalia - 18+ - KENNETH - No [place] Completed 10/26/2015 Visit Plan: Office dip still abnormal Cu lture pending Switch to cipro - stop macrobid Push fluids - avoid caffeine Will call with culture results when available Follow up if worsening 10/05/2015 Appointment: Lidia Hwang [address] [place], [place] [phone] [[email or web address]] ER Follow UP 10/05/2015 Patient Education: Patient Medication Summary Completed 10/05/2015 Visit Plan: Proceed with PT for document ation of ROM and strength of all extremities Proceed with Power Mobility Device Trial of neurontin 300mg q HS--lyrica helped but patient unable to afford Recheck 1month 09/15/2015 Appointment: Belia Reid WPtel: [address] [place], [place] [id number] 09/13 confirmed~sl SPECIAL 09/15/2015 Patient Education: Patient Medication Summary Completed 09/15/2015 Visit Plan: Fille out Loan Discharge Pap erwork for total and permanent disability 08/25/2015 Patient Education: Patient Medication Summary Completed 08/25/2015 Visit Plan: Discussed with Dr Anushka Haywood at CT of head Will get last date of carotid doppler from her manager global communications and update if needed 08/24/2015 Appointment: Lidia Hwang [address] [place], [place] [phone] 08/22 confirmed~sl ACUTE ILLNESS 08/24/2015 Patient Education: Patient Medication Summary Completed 08/24/2015 Patient Education: Patient Medication Summary Completed 08/24/2015 Care Plan: US EXAM OF HEAD AND NECK carotid Ultrasound LOIN C : 49695-5 Pending 08/24/2015 Visit Plan: Long discussion about diet A ccuchecks daily Check HbA1C, CMP Change requip to mirapex 07/05/2015 Appointment: Belia Reid WPtel: [address] [place], [place] [phone] 07/03 confirmed ~sl FOLLOW UP 07/05/2015 Patient Education: Patient Medication Summary Completed 07/05/2015 Visit Plan: Add Breo ellipta 100 1 p BID Continue SVNs with duoneb QID 06/06/2015 Appointment: Belia Reid WPtel: [address] [place], [place] [phone] Patient is calling for a ride, then [...] not improving 05/23/2015 Appointment: Huong Osborne WPtel: [address] [place], [place] [phone] ACUTE ILLNESS 05/23/2015 Appointment: Lidia Hwang [address] [place], [place] [phone] ER Follow UP 05/23/2015 Patient Education: Patient Medication Summary Completed 05/23/2015 Visit Plan: Check pancreatic enzymes and US of pancreas as patient can't understand why she has diabetes since has no family history Discussed weight, diet, exercise all play an important role in diabetes and are risk factors as well Continue Januvia and accuchecks daily 05/05/2015 Appointment: Belia Reid WPtel: [address] [place], [place] [phone] FOLLOW UP 05/05/2015 Patient Education: Patient Medication Summary Completed 05/05/2015 Care Plan: US EXAM ABDOM COMPLETE LOINC : 48398-8 Ordered 05/05/2015 Visit Plan: Start Januvia 100mg daily [place] with diflucan and culture urine Accuchecks daily alternating times Recheck 6weeks 03/30/2015 Appointment: Belia Reid WPtel: [address] [place], [place] [phone] [place] 03/29 confirmed~lb FOLLOW UP 03/30/2015 Patient Education: Patient Medication Summary Completed 03/30/2015 Appointment: Belia Reid WPtel: [address] [place], [place] [phone] [place] 03/01 needs reschedule due to payment and insurance ~sl FOLLOW UP 03/02/2015 Visit Plan: Patient was just in ER last night so has not filled scripts yet Start Carafate and Flagyl and Cipro Add Hyophen 1 po BID Recheck 1mo 02/03/2015 Appointment: Belia Reid WPtel: [address] [place], [place] [phone] 02/02lm ~sl...02/03/15 appt confirmed cn ACUTE I LLNESS 02/03/2015 Patient Education: Patient Medication Summary Completed 02/03/2015 Visit Plan: Warm soaks to vaginal area K elex and Diflucan and observe Zofran to use prn 12/29/2014 Appointment: Belia Reid WPtel: [address] [place], [place] [phone] [[email or web address]] 12/28 Confirmed ~sl ACUTE ILLNESS 12/29/2014 Patient Education: Patient Medication Summary Completed 12/29/2014 Appointment: Huong Osborne WPtel: [address] [place], [place] [phone] FOLLOW UP 09/24/2014 Appointment: Belia Reid WPtel: [address] [place], [place] [phone] 09/15 confirmed -mf FOLLOW UP 09/16/2014 Visit Plan: Increase requip to 2mg po BI D Increase lyrica to 225mg total a day by adding an extra 75mg in AM Recheck in 2weeks Continue to patch left eye while sleeping 09/02/2014 Appointment: Belia Reid WPtel: [address] [place], [place] [phone] 09/01 appt confirmed cn Hospital Follow Up 09/02 Patient Education: Patient Medication Summary Completed 09/02/2014 Visit Plan: To [facility] for observat ion to R/O CVA 08/25/2014 Appointment: Huong Osborne WPtel: [address] [place], [place] [phone] [[email or web address]] ACUTE ILLNESS 08/25/2014 Patient Education: Patient Medication Summary Completed 08/25/2014 Referral: Aaron Jonas WPtel: [facility] [id number] [facility], [id number] In [place] location Initiated 04/26/2014 Referral: Brian Srinivasan WPtel: [facility] [id number] Referral Initiated 04/20/2014 Appointment: Belia Reid WPtel: [address] [place], [place] [phone] ER Follow UP 04/01/2014 Patient Education: Patient Medication Summary Completed 04/01/2014 Care Plan: MYELOGRAPHY NECK SPINE LOINC : 29530-3 Ordered 04/01/2014 Visit Plan: Continue Symbicort 160 at 2p BID Continue SVNs with duoneb at least QID Finish Levaquin Recheck 1mo on lyrica 03/16/2014 Appointment: Belia Reid WPtel: [address] [place], [place] [phone] 03/15 voicemail FOLLOW UP 03/16/2014 Patient Education: Patient Medication Summary Completed 03/16/2014 Visit Plan: Restart SVNs with duoneb QID Repeat prednisone Levaquin Continue symbicort Keep lyrica at same dose Recheck 1week 03/09/2014 Appointment: Belia Reid WPtel: [address] [place] [address] FOLLOW UP 03/09/2014 Patient Education: Patient Medication Summary Completed 03/09/2014 Appointment: Belia Reid WPtel: [address] [place], [place] [phone] 03/03 showed up 15 minutes late for appt -- put her on Huong's side for 10:45am FORGIVEN PER DR FOLLOW UP 03/03/2014 Appointment: Huong Osborne WPtel: [address] [place] [address] FOLLOW UP 03/03/2014 Patient Education: Patient Medication Summary Completed 03/03/2014 Appointment: Huong Osborne WPtel: [address] [place], [place] [phone] ER Follow UP 03/01/2014 Patient Education: Patient Medication Summary Completed 03/01/2014 Visit Plan: Add carafate for this next m onth Increase lyrica to 150mg q HS 02/09/2014 Appointment: Belia Reidtel: [address] [place], [place] [phone] [place] [address] Follow Up 02/09/2014 Patient Education: Patient Medication Summary Completed 02/09/2014 Visit Plan: Increase omeprazole back to 40mg po BID Use requip in AM and add lyrica 75mg q HS Recheck 1mo 12/23/2013 Appointment: Belia Reid WPtel: [address] [place] [address] FOLLOW UP 12/23/2013 Patient Education: Patient Medication Summary Completed 12/23/2013 Patient Education: Patient Medication Summary Completed 12/04/2013 Appointment: Belia Reid WPtel: [address] [place] [address] 10/30/2013 Patient Education: Patient Medication Summary Completed 10/30/2013 Appointment: Belia Reid WPtel: [address] [place] [address] 10/21/2013 Patient Education: Patient Medication Summary Completed 10/21/2013 Visit Plan: Cryotherapy as above TAC and hydroxyzine to use prn to itching spots and itching SKs Add Advair HFA 115/21 1 p BID 10/05/2013 Appointment: Belia Reid WPtel: [address] [place], [place] [phone] [[email or web address]] 10/01 pt called and confirmed ACUTE ILLNESS Patient Education: Patient Medication Summary Completed 10/05/2013 Appointment: Belia Reid WPtel: [address] [place], [place] [email or web address] will pay copay and part of past balance FOLLOW U P 08/04/2013 Patient Education: Patient Medication Summary Completed 08/04/2013 Appointment: Bel[facility] Reid [facility]Ptel: [phone] [facility] [place] INJECTION 07/13/2013 Patient Education: Patient Medication Summary Completed 07/13/2013 Appointment: Huong Osborne WPtel: [address] [place], [place] [phone] [place] ACUTE ILLNESS 07/03/2013 Patient Education: Patient Medication Summary Completed 07/03/2013 Visit Plan: Cipro and culture urine 05/27/2013 Appointment: Huong Osborne WPtel: [address] [place], [place] [phone] [place] 05/26 confirmed appt and notified that balance and scleroscope tester y is due at appt time FOLLOW UP 05/27/2013 Patient Education: Patient Medication Summary Completed 05/27/2013 Appointment: Belia Reid WPtel: [address] [place], [place] [phone] [place] UA 05/25/2013 Patient Education: Patient Medication Summary Completed 05/25/2013 Appointment: Belia Reid WPtel: [address] [place], [place] [phone] [place] INJECTION 05/04/2013 Patient Education: Patient Medication Summary Completed 05/04/2013 Appointment: Belia Reid WPtel: [address] [place], [place] [phone] [place] INJECTION 04/17/2013 Patient Education: Patient Medication Summary Completed 04/17/2013 Appointment: Belia Reid WPtel: [address] [place], [place] [phone] [place] INJECTION 04/15/2013 Appointment: Belia Reid WPtel: [address] [place], [place] [phone] [place] 04/02 FOLLOW UP 04/06/2013 Patient Education: Patient Medication Summary Completed 04/06/2013 Visit Plan: Obtain lab results including UA from [facility] 11/10/2012 Appointment: Belia Reid WPtel: [address] [place], [place] [phone] [[email or web address] ER Follow UP 11/10/2012 Patient Education: Patient Medication Summary Completed 11/10/2012 Appointment: Belia Reid WPtel: [address] [place], [place] [phone] 10/30/12 patient canceled appt due to fin ances. Offered to work something out, patient declined-LB FOLLOW UP 11/05/2012 Visit Plan: Continue Bystolic at current dose Pt has fwup with Neurology on September 16 09/02/2012 Appointment: Belia Reid WPtel: [address] [place] [address] FOLLOW UP 09/02/2012 Patient Education: Patient Medication Summary Completed 09/02/2012 Visit Plan: Continue bystolic at 5mg chris ly Sees Neurology tomorrow Use oxygen at bedtime 08/04/2012 Appointment: Belia Reid WPtel: [address] [place], [place] [phone] FOLLOW UP 08/04/2012 Patient Education: Patient Medication Summary Completed 08/04/2012 Appointment: Belia Reid WPtel: [address] [place], [place] [phone] [place] [address] Hospital fwup for 07/21/12. merged appointments FOLLOW UP 07/24/2012 Visit Plan: Start Bystolic 5mg daily for tachycardia Fwup with neurology for further workup Overnight O2 sat 07/21/2012 Appointment: Belia Reid WPtel: [address] [place], [place] [phone] [[email or web address] Hospital Follow Up 07/21/2012 Patient Education: Patient Medication Summary Completed 07/21/2012 Visit Plan: SVN with Albuterol QID Add A velox 400mg daily Notify if worsens or persists 07/02/2012 Appointment: Belia Reid WPtel: [address] [place] [address] ACUTE ILLNESS 07/02/2012 Patient Education: Patient Medication Summary Completed 07/02/2012 Appointment: Belia Reid WPtel: [phone] [facility] [place] INJECTION 06/25/2012 Patient Education: Patient Medication Summary Completed 06/25/2012 Appointment: Belia Reid WPtel: [phone] [facility] FOLLOW UP 06/24/2012 Patient Education: Patient Medication Summary Completed 06/24/2012 Appointment: Belia Reid WPtel: [phone] [facility] 05/19 left message FOLLOW UP 05/20/2012 Patient [...] po TID 05/08/2012 Appointment: Belia Reid WPtel: [address] [place], [place] [id number] ACUTE ILLNESS 05/08/2012 Patient Education: Patient Medication Summary Completed 05/08/2012 Visit Plan: Continue current meds Contin ue lower dose on pain meds and Diazepam Still waiting on paperwork for botox for Migraines Will restart Neurontin at 600mg po q HS Pt going to stop Depakote due to can't afford 04/22/2012 Appointment: Belia Reid WPtel: [address] [place] [id number] 04/21 Hospital Follow Up 04/22/2012 Patient Education: Patient Medication Summary Completed 04/22/2012 Visit Plan: Injection to shoulder as abo ve Continue current meds Has appointment with neurology on HAs in 02/13/2012 Appointment: Belia Reid WPtel: [facility] Pt does not have [facility]10 [facility] at [facility] time - will bring it in next week. Kianna iqbal'ed this. - [place] FOLLOW UP 02/13/2012 Patient Education: Patient Medication Summary Completed 02/13/2012 Visit Plan: Proceed with headache specia list Change nexium to Protonix Phenergan to use prn Sumatriptan to use prn Pt still on Inderal 01/28/2012 Appointment: Belia Reid WPtel: [address] [place], [place] [phone] ER Follow UP 01/28/2012 Patient Education: Patient [...] for sleep 12/26/2011 Appointment: Belia Reid WPtel: [address] [place], [place] [phone] [[email or web address]] 12/24- appt. confirmed FOLLOW UP 2 Patient Education: Patient Medication Summary Completed 12/26/2011 Appointment: Belia Reid WPtel: [address] [place], [place] [phone] [place] FOLLOW UP 11/14/2011 Patient Education: Patient Medication Summary Completed 11/14/2011 Appointment: Belia Reid WPtel: [address] [place], [place] [phone] [place] FOLLOW UP 09/12/2011 Patient Education: Patient Medication Summary Completed 09/12/2011 Visit Plan: Supportive care Decrease Liseth catalino to 50mg q HS Decrease AM dose of Valium to 5mg q HS Use Endocet sparingly 08/15/2011 Appointment: Belia Reid WPtel: [address] [place], [place] [phone] ER Follow UP 08/15/2011 Patient Education: Patient Medication Summary Completed 08/15/2011 Appointment: Belia Reid WPtel: [address] [place] [address] [place] Spoke directly to patient yesterday and confirmed the appoin tment. ACUTE ILLNESS 08/09/2011 Patient Education: Patient Medication Summary Completed 08/09/2011 Appointment: Belia Reid WPtel: [address] [place] [address] Hospital Follow Up 07/03/2011 Patient Education: Patient Medication Summary Completed 07/03/2011 Appointment: Belia Reid WPtel: [address] [place] [address] FOLLOW UP 06/04/2011 Patient Education: Patient Medication Summary Completed 06/04/2011 Visit Plan: Pt. wants "allergy shot" but in fact wants steroid shot. Will take a break from "generic Zyrtec they are getting from [facility]" and try Singulair for 2 weeks. 05/03/2011 Appointment: Iraida Jones WPtel: [address] [place] [address] ACUTE ILLNESS 05/03/2011 Patient Education: Patient Medication Summary Completed 05/03/2011 Visit Plan: Neurontin 400mg q HS for 1we ek then 800mg q HS Decrease requip to 1mg q HS for 2wks then stop Fwup 2mos 04/05/2011 Appointment: Belia Reid WPtel: [address] [place] [address] FOLLOW UP 04/05/2011 Patient Education: Patient Medication Summary Completed 04/05/2011 Visit Plan: Trial of neurontin in 2wks C ontinue current meds for stomach Pt has procedure with Dr. Ortiz next week for stone removal 03/08/2011 Appointment: Belia Reid WPtel: [address] [place], [place] [phone] Hospital Follow Up 03/08/2011 Patient Education: Patient Medication Summary Completed 03/08/2011 Appointment: Belia Reid WPtel: [address] [place], [place] [phone] [place] FOLLOW UP 02/19/2011 Visit Plan: reports [...] with Flagyl 01/24/2011 Appointment: Iraida Jones WPtel: [address] [place] [address] ACUTE ILLNESS 01/24/2011 Patient Education: Patient Medication Summary Completed 01/24/2011 Appointment: Belia Reid WPtel: [address] [place] [address] [place] FOLLOW UP 01/02/2011 Patient Education: Patient Medication Summary Completed 01/02/2011 Appointment: Belia Reid WPtel: [address] [place] [address] FOLLOW UP 12/12/2010 Appointment: Belia Reid WPtel: [address] [place] [address] ACUTE ILLNESS 12/07/2010 Patient Education: Patient Medication Summary Completed 12/07/2010 Visit Plan: Increase Buspar to 10mg po B ID 11/16/2010 Appointment: Belia Reid WPtel: [address] [place], [place] [phone] [place] FOLLOW UP 11/16/2010 Patient Education: Patient Medication Summary Completed 11/16/2010 Appointment: Iraida Jones WPtel: [address] [place], [place] [phone] ER Follow UP 11/02/2010 Patient Education: Patient Medication Summary Completed 11/02/2010 Visit Plan: Depo-Medrol/Kenalog given fo r allergies Add BuSpar for anxiety Oxycodone one p.o. q.i.d. for number 120 refilled 10/18/2010 Appointment: Belia Reid WPtel: [address] [place] [address] FOLLOW UP 10/18/2010 Patient Education: Patient Medication Summary Completed 10/18/2010 Visit Plan: Continue current meds Discus sed epidurals for back vs PT--will proceed with epidurals to thoracolumbar region to see if helps with pain 09/19/2010 Appointment: Belia Reid WPtel: [address] [place], [place] [email or web address]] FOLLOW UP 09/19/2010 Patient Education: Patient Medication Summary Completed 09/19/2010 Visit Plan: DC MS contin Check CT scan t horacic spine Fwup pending above results 09/06/2010 Appointment: Belia Reid WPtel: [address] [place] [address] FOLLOW UP 09/06/2010 Patient Education: Patient Medication Summary Completed 09/06/2010 Visit Plan: Continue current meds Restar t MS contin 15mg po BID and use oxycodone prn Use daily senokot-s 2 po BID 08/10/2010 Appointment: Belia Reidtel: [address] [place], [place] [phone] FOLLOW UP 08/10/2010 Patient Education: Patient Medication Summary Completed 08/10/2010 Visit Plan: Depomedrol/Kenalog given Pt sees ENT later this month Cont current meds Mammo scheduled 05/11/2010 Appointment: Belia Reid WPtel: [address] [place], [place] [phone] FOLLOW UP 05/11/2010 Patient Education: Patient Medication Summary Completed 05/11/2010 Appointment: Belia Reidtel: [address] [place], [place] [phone] UA 05/04/2010 Patient Education: Patient Medication Summary Completed 05/04/2010 Visit Plan: Pt sent to lab for UA 04/28/2010 Appointment: Belia Reidtel: [address] [place], [place] [phone] [place] [address] 04/28/2010 Patient Education: Patient Medication Summary Completed 04/28/2010 Visit Plan: Check CT angiogram of chest Restart Advair Use proair prn Cont current meds Fwup with Card as schedulec 04/06/2010 Appointment: Belia Reid WPtel: [address] [place] [address] Follow Up 04/06/2010 Patient Education: Patient Medication Summary Completed 04/06/2010 Visit Plan: Paperwork filled out for pow erchair Depomedrol/kenalog given Pt sees ENT in 2wks to assess nasal obstruction problems 02/09/2010 Appointment: Belia Reidtel: [address] [place] [address] ESTABLISHED PATIENT 02/09/2010 Patient Education: Patient Medication Summary Completed 02/09/2010 Visit Plan: Change Elavil to Trazadone 1 50mg q HS Diflucan and nystatin for tinea cruris 01/05/2010 Appointment: Belia Reidtel: [address] [place] [address] FOLLOW UP 01/05/2010 Patient Education: Patient Medication Summary Completed 01/05/2010 Appointment: Belia Reidtel: [address] [place] [address] FOLLOW UP 12/07/2009 Patient Education: Patient Medication Summary Completed 12/07/2009 Appointment: Belia Reid WPtel: [address] [place] [address] FOLLOW UP 11/22/2009 Visit Plan: Cont current meds and await MRI results from Dr. Meadows's office and his final recommendations Will need to follow-up at later date on deviated septum 11/08/2009 Appointment: Belia Reid WPtel: [address] [place], [place] [phone] FOLLOW UP 11/08/2009 Patient Education: Patient Medication Summary Completed 11/08/2009 Visit Plan: Cont PT/OT See Neurosurgery Cont Dwain arora 10/24/2009 Appointment: Belia Reid WPtel: [address] [place], [place] [phone] FOLLOW UP 10/24/2009 Patient Education: Patient Medication Summary Completed 10/24/2009 Appointment: Belia Reid WPtel: [address] [place], [place] [email or web address] Hospital Follow Up 10/17/2009 Appointment: Belia Reid WPtel: [address] [place], [place] [email or web address]] ACUTE ILLNESS 07/25/2009 Patient Education: Patient Medication Summary Completed 07/25/2009 Appointment: Belia Reid WPtel: [address] [place], [place] [phone] FOLLOW UP 05/26/2009 Patient Education: Patient Medication Summary Completed 05/26/2009 Referral: Chino Balderas WPtel: [facility] [place] Referral Initiated Referral: Merry Vale WPtel: [facility] [id number] [address] Vale will review referral and book appointment Completed Referral: Francisco Javier Yoder WPtel: [address] [id number] [place] Patient needs EGD insurance will not inc rease a medication unless this procedure results show a need Completed Referral: Francisco Javier Yoder WPtel: [address] [id number] [place] Referral Historical Reference Referral: Francisco Javier Yoder WPtel: [address] [id number] [place] Referral Initiated Instructions Comment . 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 Long discussion [...] from "generic Zyrtec they are getting from [employer]" and try Singulair for 2 weeks. . Neurontin 400mg q HS for 1week then 80 0mg q HS Decrease requip to 1mg q HS for 2wks then stop Fwup 2mos . Trial of neurontin in 2wks Continue current meds for stomach Pt has procedure with Dr. Oritz next week for stone removal . reports [...]
--- OUTSIDE RECORDS SUMMARY | 2019-08-27 07:44 | XMS REPORT | CCD ---
Author Author Diana Reid D.O. Organization [facility] Address [address] [place] [address] Phone Care Team Providers Care Special Education Administrator Name Role Phone Belia Reid D.O., PP Unavailable CCM Unavailable Summary Purpose Interface Exchange Insurance Providers Payer name Policy type / Coverage type Covered constitution party ID Effective Begin Date Effective End Date [employer] MEDICARE Medicare Part B [id number] 2019 Unknown Family History Family History data not found Social History Social History Element Codes Description Effective Dates Tobacco history SNOMED CT: 940737542 Nonsmoker 09/13/2010 Allergies, Adverse Reactions, Alerts Substance Reaction Codes Entered Date Inactivated Date Status Eggs reaction [id number] 09/15/2015 No Inactive Date Active _ Unknown [...] Fill Instructions baclofen 10 mg tablet RxNorm: 952189 1 Tablet(s) Oral QD for pa in/spasm 08/25/2019 09/24/2019 Active meloxicam 15 mg tablet RxNorm: 830516 1 Tablet(s) Oral QD for pain 08/25/2019 09/24/2019 Active Insulin Syringe 1 mL 29 gauge x 1/2" RxNorm: 2 s yringes daily with insulin Dx: E11.65 08/12/2019 No Stop Date Active Ativan 0.5 mg tablet RxNorm: 269588 1 Tablet(s) Oral th ree times a day for anxiety/shortness of air/stridor 07/29/2019 08/27/2019 Active Singulair 10 mg tablet RxNorm: 468486 1 Tablet(s) Oral QPM 07/29/1901/25/2020 Active diltiazem CD 240 mg capsule,extended release 24 hr RxNorm: 8 64126 1 Capsule(s) Oral QD 07/15/2019 01/10/2020 Active metoprolol tartrate 50 mg tablet RxNorm: 921470 1 Table t(s) Oral two times a day 07/06/2019 No Stop Date Active Novolin N NPH U-100 Insulin isophane 100 unit/mL subcu taneous susp RxNorm: 568487 25 Unit(s) Subcutaneous two times a day 07/06/2019 07/06/2019 I nactive Colestid 1 gram tablet RxNorm: 8143139 1 Tablet(s) Oral two times a day for diarrhea 07/06/2019 09/04/2019 Active pramipexole 1 mg tablet RxNorm: 811163 1 Tablet(s) Oral QPM FOR RESTLESS LEGS (REPLACES REQUIP) 06/25/2019 06/19/2020 Active hydroxyzine HCl 25 mg tablet RxNorm: 186737 1 Tablet(s) Oral QPM for itching/aniety 06/25/2019 09/23/2019 Active Ativan 0.5 mg tablet RxNorm: 027480 1 Tablet(s) Oral th ree times a day for anxiety/shortness of air/stridor 06/25/2019 07/25/2019 Inactive Levaquin 500 mg tablet RxNorm: 185631 1 Tablet(s) Oral QD 06/16/2019 06/23/2019 Inactive Flagyl 500 mg tablet RxNorm: 165128 1 Tablet(s) Oral three time s a day 06/16/2019 06/23/2019 Inactive Vancocin 125 mg capsule RxNorm: 846452 1 Capsule(s) Oral four t imes a day 06/08/2019 06/18/2019 Inactive omeprazole 40 mg capsule,delayed release RxNorm: 436906 1 Capsule(s) Oral two times a day 05/26/2019 11/21/2019 Active Flagyl 500 mg tablet RxNorm: 332904 1 Tablet(s) Oral three time s a day 05/26/2019 06/05/2019 Inactive diltiazem CD 240 mg capsule,extended release 24 hr RxNorm: 8 46602 1 Capsule(s) Oral QD 05/26/2019 07/14/2019 Inactive Cipro 250 mg tablet RxNorm: 093482 1 Tablet(s) Oral two times a day 05/26/2019 06/02/2019 Inactive hydroxyzine HCl 25 mg tablet RxNorm: 388854 1 Tablet(s) Oral QPM for itching/aniety 05/21/2019 06/24/2019 Inactive metoprolol tartrate 25 mg tablet RxNorm: 460781 1 Table t(s) Oral two times a day 05/21/2019 07/05/2019 Inactive hydroxyzine HCl 25 mg tablet RxNorm: 122283 1 Tablet(s) Oral QPM for itching/aniety 05/13/2019 05/20/2019 Inactive Singulair 10 mg tablet RxNorm: 701024 1 Tablet(s) Oral QPM 05/06/19 20 05/12/2019 Inactive gabapentin 600 mg tablet RxNorm: 445782 1 Tablet(s) Oral QD 020 06/05/2019 Inactive Valium 5 mg tablet RxNorm: 406937 1 Tablet(s) Oral QPM for stri joao/muscle spasm 04/29/2019 06/24/2019 Inactive baclofen 10 mg tablet RxNorm: 887969 1 Tablet(s) Oral QPM for s pasm/neck pain 04/24/2019 05/23/2019 Inactive baclofen 10 mg tablet RxNorm: 104200 1 Tablet(s) Oral QPM for s pasm/neck pain 04/24/2019 04/23/2019 Inactive Novolin N NPH U-100 Insulin isophane 100 unit/mL subcu taneous susp RxNorm: 288972 23 Unit(s) Subcutaneous two times a day 04/20/2019 07/05/2019 I nactive cyclobenzaprine 5 mg tablet RxNorm: 362388 1 Tablet(s) Oral three times a day as needed 04/16/2019 04/23/2019 Inactive hydroxyzine HCl 25 mg tablet RxNorm: 503843 1 Tablet(s) Oral three times a day for itching/aniety 04/08/2019 05/12/2019 Inactive gabapentin 600 mg tablet RxNorm: 755785 1 Tablet(s) Oral two ti mes a day 04/08/2019 05/05/2019 Inactive gabapentin 600 mg tablet RxNorm: 720155 1 Tablet(s) Oral two ti mes a day 04/08/2019 04/07/2019 Inactive Novolin N NPH U-100 Insulin isophane 100 unit/mL subcu taneous susp RxNorm: 628624 10 Unit(s) Subcutaneous two times a day 03/03/2019 04/19/2019 I nactive gabapentin 300 mg capsule RxNorm: 112525 1 Capsule(s) O ral every night at bedtime for neuropathy 02/26/2019 04/07/2019 Inactive gabapentin 300 mg capsule RxNorm: 278225 1 Capsule(s) O ral every night at bedtime for neuropathy 02/20/2019 02/25/2019 Inactive buspirone 5 mg tablet RxNorm: 216787 TAKE 1 TABLET THREE TIMES MILDRED Y 02/12/2019 05/12/2019 Inactive pramipexole 1 mg tablet RxNorm: 085898 1 Tablet(s) Oral QPM FOR RESTLESS LEGS (REPLACES REQUIP) 02/12/2019 06/24/2019 Inactive Lexapro 10 mg tablet RxNorm: 988574 TAKE 1 TABLET EVERY DAY FOR MOO D 01/31/2019 No Stop Date Active Ativan 0.5 mg tablet RxNorm: 719452 TAKE 1 TABLET BY [facility] THREE TIMES DAILY NEEDED FOR ANXIETY 01/26/2019 04/28/2019 Inactive Ativan 0.5 mg tablet RxNorm: 924384 TAKE 1 TABLET BY [facility] THREE TIMES DAILY NEEDED FOR ANXIETY 01/05/2019 01/05/2019 Inactive Levaquin 500 mg tablet RxNorm: 985878 1 Tablet(s) Oral QD 12/25/2018 12/24/2018 Inactive Levaquin 500 mg tablet RxNorm: 449046 1 Tablet(s) Oral QD 12/25/2018 01/04/2019 Inactive baclofen 10 mg tablet RxNorm: 538843 1 Tablet(s) Oral three maico es a day 11/20/2018 01/19/2019 Inactive Ativan 0.5 mg tablet RxNorm: 954229 TAKE 1 TABLET BY [facility] THREE TIMES DAILY NEEDED FOR ANXIETY 11/20/2018 01/04/2019 Inactive gabapentin 300 mg capsule RxNorm: 763686 1 Capsule(s) O ral every night at bedtime for neuropathy 11/20/2018 12/20/2018 Inactive Lexapro 10 mg tablet RxNorm: 308254 1 Tablet(s) PO QD for mood 07/201801/30/2019 Inactive Zithromax Z-Lj 250 mg tablet RxNorm: 950921 Tablet(s) PO take as directed 11/04/2018 11/19/2018 Inactive Insulin Syringe 1 mL 29 gauge x 1/2" RxNorm: 2 s yringes daily with insulin Dx: E11.65 10/08/2018 08/11/2019 Inactive gabapentin 300 mg capsule RxNorm: 428852 1 Capsule(s) PO QHS fo r neuropathy 09/18/2018 10/17/2018 Inactive cyclobenzaprine 5 mg tablet RxNorm: 391062 1 Tablet(s) PO TID a s needed 09/09/2018 09/08/2018 Inactive cyclobenzaprine 5 mg tablet RxNorm: 250145 1 Tablet(s) PO TID a s needed 09/09/2018 10/08/2018 Inactive prednisone 20 mg tablet RxNorm: 361488 1 Tablet(s) PO QD 09/08/2018 0 09/12/2018 Inactive Lantus Solostar U-100 Insulin 100 unit/mL (3 mL) subcu taneous pen RxNorm: 388002 55 Unit(s) SQ QAM 08/28/2018 11/03/2018 Inactive hydroxyzine HCl 25 mg tablet RxNorm: 468208 1 Tablet(s) PO QHS for itching 08/20/2018 05/12/2019 Inactive Lexapro 10 mg tablet RxNorm: 703021 1 Tablet(s) PO QD for mood 08/0210/18/2018 Inactive sumatriptan 100 mg tablet RxNorm: 579292 1 Tablet(s) PO at headache onset. May repeat 1 in two hours if headache remains. Max of 2 per 24 hours 04/02/2018 05/20/2018 Inactive Diflucan 150 mg tablet RxNorm: 471819 1 Tablet(s) PO QD 03/18/2018 Inactive Diflucan 150 mg tablet RxNorm: 371111 1 Tablet(s) PO QD 03/18/2018 Inactive Flagyl 500 mg tablet RxNorm: 835809 1 Tablet(s) PO TID 03/17/2018 Inactive Levaquin 500 mg tablet RxNorm: 886593 1 Tablet(s) PO QD 03/17/2018 Inactive Levaquin 500 mg tablet RxNorm: 892117 1 Tablet(s) PO QD 03/17/2018 Inactive Flagyl 500 mg tablet RxNorm: 075818 1 Tablet(s) PO TID 03/17/2018 Inactive ketoconazole 200 mg tablet RxNorm: 028578 1 Tablet(s) PO QD 019 03/19/2018 Inactive Celebrex 200 mg capsule RxNorm: 391195 1 Capsule(s) PO BID 02/06/20 18 05/20/2018 Inactive tramadol 50 mg tablet RxNorm: 320469 1 Tablet(s) PO TID as needed 1 04/08/2017 05/20/2018 Inactive gabapentin 300 mg capsule RxNorm: 402253 1 Capsule(s) PO BID 201705/20/2018 Inactive Diflucan 150 mg tablet RxNorm: 493175 1 Tablet(s) PO QD 01/20/2018 Inactive pramipexole 1 mg tablet RxNorm: 682180 1 Tablet(s) PO Q PM FOR RESTLESS LEGS (REPLACES REQUIP) 01/08/2018 02/11/2019 Inactive cyclobenzaprine 10 mg tablet RxNorm: 651407 1 Tablet(s) PO TID as needed for muscle spasm 12/17/2017 05/20/2018 Inactive pramipexole 1 mg tablet RxNorm: 500759 TAKE 1 TABLET BY MOUTH ONCE DAILY IN THE EVENING FOR RESTLESS LEGS (REPLACES REQUIP) 12/04/2017 01/05/2018 Inac tive Amaryl 4 mg tablet RxNorm: 825946 1 Tablet(s) PO BID replaces 2mg 0 11/05/2017 12/16/2017 Inactive Singulair 10 mg tablet RxNorm: 720129 1 Tablet(s) PO QHS for al lergies/lungs 10/30/2017 12/16/2017 Inactive Diflucan 100 mg tablet RxNorm: 700169 1 Tablet(s) PO QD 10/23/2017 Inactive Ativan 0.5 mg tablet RxNorm: 393065 TAKE 1 TABLET BY MOUTH THRE E TIMES DAILY 08/30/2017 11/20/2018 Inactive buspirone 5 mg tablet RxNorm: 493988 1 Tablet(s) PO TID 07/11/2017 Inactive propranolol 60 mg tablet RxNorm: 456030 1 Tablet(s) PO BID repl aces 40mg dose 06/26/2017 12/16/2017 Inactive Amaryl 4 mg tablet RxNorm: 766625 1 Tablet(s) PO BID replaces 2mg 0 06/12/2017 11/05/2017 Inactive omeprazole 40 mg capsule,delayed release RxNorm: 277363 1 Capsule(s) PO BID TAKE ONE CAPSULE BY MOUTH TWICE DAILY 05/30/2017 11/25/2017 Inactive pramipexole 1 mg tablet RxNorm: 611613 1 Tablet(s) PO Q PM for restless legs--replaces requip 05/30/2017 11/25/2017 Inactive amitriptyline 50 mg tablet RxNorm: 533614 1 Tablet(s) PO QHS 201709/16/2017 Inactive Diflucan 100 mg tablet RxNorm: 073780 1 Tablet(s) PO BID 05/07/2017 0 05/20/2017 Inactive nystatin (bulk) 100 million unit powder RxNorm: Application TO P BID 05/07/2017 05/20/2018 Inactive cholestyramine (with sugar) 4 gram oral powder RxNorm: 524563 1 Unit Dose PO QD 05/07/2017 01/20/2018 Inactive Ativan 0.5 mg tablet RxNorm: 152381 TAKE ONE TABLET BY MOUTH TH REE TIMES DAILY 05/01/2017 09/02/2017 Inactive Trulicity 1.5 mg/0.5 mL subcutaneous pen injector RxNorm: 15 32342 1 Unit Dose SQ WEEKLY 02/22/2017 03/23/2017 Inactive doxycycline hyclate 100 mg capsule RxNorm: 7636285 1 Capsule(s) PO BID 01/23/2017 02/05/2017 Inactive Amaryl 4 mg tablet RxNorm: 126578 1 Tablet(s) PO BID replaces 2mg 1 03/25/2016 05/22/2017 Inactive magnesium oxide 400 mg capsule RxNorm: 483047 1 Capsule(s) PO QD 07/18/2017 Inactive Ativan 0.5 mg tablet RxNorm: 885219 TAKE ONE TABLET BY MOUTH TH REE TIMES DAILY 01/17/2017 05/01/2017 Inactive Amaryl 2 mg tablet RxNorm: 374458 1 Tablet(s) PO BID 12/27/201601/22 Inactive Amaryl 2 mg tablet RxNorm: 856002 1 Tablet(s) PO BID 12/26/201612/26 Inactive Ativan 0.5 mg tablet RxNorm: 252257 TAKE ONE TABLET BY MOUTH TH REE TIMES DAILY 12/05/2016 01/18/2017 Inactive pramipexole 1 mg tablet RxNorm: 778712 1 Tablet(s) PO Q PM for restless legs--replaces requip 11/26/2016 05/30/2017 Inactive Mobic 15 mg tablet RxNorm: 244497 1 Tablet(s) PO QD 10/08/20162016 Inactive cyclobenzaprine 5 mg tablet RxNorm: 777131 1/2- 1 Tablet(s) PO TID 10/08/2016 10/17/2016 Inactive Ativan 0.5 mg tablet RxNorm: 912735 1 Tablet(s) PO TID 09/20/201607/2016 Inactive amitriptyline 50 mg tablet RxNorm: 630740 1 Tablet(s) PO QHS 201605/30/2017 Inactive propranolol 60 mg tablet RxNorm: 239440 1 Tablet(s) PO BID repl aces 40mg dose 09/19/2016 06/26/2017 Inactive Ativan 0.5 mg tablet RxNorm: 845550 1 Tablet(s) PO TID 08/20/2016 Inactive omeprazole 40 mg capsule,delayed release RxNorm: 385578 1 Capsule(s) PO BID TAKE ONE CAPSULE BY MOUTH TWICE DAILY 08/20/2016 05/30/2017 Inactive amitriptyline 50 mg tablet RxNorm: 141776 1 Tablet(s) PO QHS 201609/18/2016 Inactive pramipexole 1 mg tablet RxNorm: 093171 1 Tablet(s) PO Q PM for restless legs--replaces requip 07/23/2016 11/25/2016 Inactive Amaryl 2 mg tablet RxNorm: 182108 1 Tablet(s) PO BID 07/23/201612/27 Inactive propranolol 40 mg tablet RxNorm: 179818 1 Tablet(s) PO BID 07/13/19 17 09/18/2016 Inactive Ativan 0.5 mg tablet RxNorm: 699063 1 Tablet(s) PO QID 06/19/2016 Inactive Amaryl 2 mg tablet RxNorm: 575195 1 Tablet(s) PO BID 06/19/201607/22 Inactive Ativan 0.5 mg tablet RxNorm: 567607 1 Tablet(s) PO QID 06/19/2016 Inactive buspirone 5 mg tablet RxNorm: 043768 1 Tablet(s) PO TID 06/19/2016 Inactive Ativan 0.5 mg tablet RxNorm: 624819 1 Tablet(s) PO BID 05/24/2016 Inactive buspirone 5 mg tablet RxNorm: 135462 1 Tablet(s) PO TID 05/23/2016 Inactive Macrobid 100 mg capsule RxNorm: 038874 1 Capsule(s) PO QOD 05/03/19 17 10/07/2016 Inactive pramipexole 1 mg tablet RxNorm: 423445 Tablet(s) 1 Tabl et(s) PO QPM for restless legs--replaces requip 04/26/2016 06/24/2016 Inactive propranolol 40 mg tablet RxNorm: 290429 TAKE ONE TABLET BY MOUT H TWICE DAILY 04/26/2016 06/24/2016 Inactive Detrol LA 4 mg capsule,extended release RxNorm: 062464 1 Capsul e(s) PO QHS 04/03/2016 05/02/2016 Inactive prednisone 20 mg tablet RxNorm: 758296 1 Tablet(s) PO QD 02/29/2016 0 03/04/2016 Inactive Actos 30 mg tablet RxNorm: 766833 TAKE ONE TABLET BY MOUTH ONCE DAILY 02/27/2016 12/19/2016 Inactive clindamycin 300 mg capsule RxNorm: 329133 1 Capsule(s) PO TID 02/0102/08/2016 Inactive Flagyl 500 mg tablet RxNorm: 015151 1 Tablet(s) PO BID 02/02/201609/2015 Inactive omeprazole 40 mg capsule,delayed release RxNorm: 098599 TAKE ONE CAPSULE BY MOUTH TWICE DAILY 01/15/2016 07/12/2016 Inactive gabapentin 300 mg capsule RxNorm: 563756 1 Capsule(s) PO QAM an d 2 po q HS 01/05/2016 06/18/2016 Inactive gabapentin 300 mg capsule RxNorm: 507956 1 Capsule(s) P O BID 1 Capsule(s) PO QHS 12/05/2015 01/04/2016 Inactive cyclobenzaprine 10 mg tablet RxNorm: 500393 1 Tablet(s) PO TID for spasm as needed for muscle spasm 12/05/2015 06/18/2016 Inactive ciprofloxacin 250 mg tablet RxNorm: 775493 1 Tablet(s) PO BID 12/0412/14/2015 Inactive pramipexole 1 mg tablet RxNorm: 821554 Tablet(s) 1 Tabl et(s) PO QPM for restless legs--replaces requip 11/07/2015 11/26/2016 Inactive Januvia 100 mg tablet RxNorm: 973547 1 Tablet(s) PO QD 10/26/201504/2015 Inactive propranolol 40 mg tablet RxNorm: 941271 TAKE ONE TABLET BY MOUT H TWICE DAILY 10/25/2015 04/21/2016 Inactive gabapentin 300 mg capsule RxNorm: 820242 1 Capsule(s) PO QHS 201512/04/2015 Inactive Cipro 500 mg tablet RxNorm: 106418 1 Tablet(s) PO BID 10/05/201511/2015 Inactive pramipexole 1 mg tablet RxNorm: 427963 Tablet(s) 1 Tabl et(s) PO QPM for restless legs--replaces requip 10/04/2015 11/02/2015 Inactive propranolol 40 mg tablet RxNorm: 782582 TAKE ONE TABLET BY MOUT H TWICE DAILY 09/26/2015 10/24/2015 Inactive Amaryl 2 mg tablet RxNorm: 418338 1 Tablet(s) PO QD 09/15/20152016 Inactive gabapentin 300 mg capsule RxNorm: 354569 1 Capsule(s) PO QHS 201510/14/2015 Inactive buspirone 5 mg tablet RxNorm: 325096 1 Tablet(s) PO TID 09/15/2015 Inactive pramipexole 1 mg tablet RxNorm: 921139 Tablet(s) 1 Tabl et(s) PO QPM for restless legs--replaces requip 09/08/2015 10/03/2015 Inactive pramipexole 1 mg tablet RxNorm: 711688 1 Tablet(s) PO Q PM for restless legs--replaces requip 08/08/2015 09/08/2015 Inactive Amaryl 2 mg tablet RxNorm: 340005 1 Tablet(s) PO QD 07/07/20152015 Inactive pramipexole 1 mg tablet RxNorm: 671827 1 Tablet(s) PO Q PM for restless legs--replaces requip 07/05/2015 08/03/2015 Inactive ropinirole 2 mg tablet RxNorm: 352433 TAKE ONE TABLET BY MOUTH TWICE DAILY 05/09/2015 09/14/2015 Inactive Diflucan 100 mg tablet RxNorm: 438839 1 Tablet(s) PO QD 03/30/2015 Inactive propranolol 40 mg tablet RxNorm: 739205 1 Tablet(s) PO BID 02/24/20 15 08/21/2015 Inactive [SAVINGS FOR UNINSURED PATIE NTS -- BIN:756781, PCN: ASPROD1, Group: AME08, ID# [id number], Process claim through MedImpact, for questions: . THIS IS NOT INSURANCE.] Flagyl 500 mg tablet RxNorm: 018097 1 Tablet(s) PO BID 02/03/201502/2015 Inactive Cipro 500 mg tablet RxNorm: 370979 1 Tablet(s) PO BID 02/03/201502/01 Inactive Carafate 1 gram tablet RxNorm: 481726 1 Tablet(s) PO QID make i nto slurry 02/03/2015 09/14/2015 Inactive ondansetron HCl 4 mg tablet RxNorm: 477811 1 Tablet(s) PO Q4H as needed for nausea 12/29/2014 01/04/2016 Inactive Diflucan 100 mg tablet RxNorm: 348569 1 Tablet(s) PO QD 12/29/2014 Inactive Keflex 500 mg capsule RxNorm: 131984 1 Capsule(s) PO TID 12/29/2014 1 03/09/2014 Inactive omeprazole 40 mg capsule,delayed release RxNorm: 611773 1 Capsu le(s) PO BID 12/27/2014 12/21/2015 Inactive [SAVINGS FOR UNINSUR ED PATIENTS -- BIN:548011, PCN: ASPROD1, Group: AME08, ID# [id number], Process claim through MedImpact, for questions: . THIS IS NOT INSURANCE.] ropinirole 2 mg tablet RxNorm: 384162 1 Tablet(s) PO BID 09/29/2014 0 03/27/2015 Inactive [SAVINGS FOR UNINSURED PATIENTS -- BIN:0 61709, PCN: ASPROD1, Group: AME08, ID# [id number], Process claim through MedImpact, for questions: . THIS IS NOT INSURANCE.] buspirone 5 mg tablet RxNorm: 339511 1 Tablet(s) PO TID 09/17/2014 Inactive ropinirole 2 mg tablet RxNorm: 758168 1 Tablet(s) PO BID 09/02/2014 0 09/28/2014 Inactive [SAVINGS FOR UNINSURED PATIENTS -- BIN:0 92307, PCN: ASPROD1, Group: AME08, ID# [id number], Process claim through MedImpact, for questions: . THIS IS NOT INSURANCE.] Zyrtec 10 mg tablet RxNorm: 0112784 1 Tablet(s) PO QD 09/02/201412/02 Inactive propranolol 40 mg tablet RxNorm: 050214 1 Tablet(s) PO BID 07/21/19 15 02/23/2015 Inactive [SAVINGS FOR UNINSURED PATIE NTS -- BIN:590235, PCN: ASPROD1, Group: AME08, ID# [id number], Process claim through MedImpact, for questions: . THIS IS NOT INSURANCE.] ropinirole 2 mg tablet RxNorm: 488264 1 Tablet(s) PO QHS 05/14/2014 0 09/01/2014 Inactive [SAVINGS FOR UNINSURED PATIENTS -- BIN:0 04826, PCN: ASPROD1, Group: AME08, ID# [id number], Process claim through MedImpact, for questions: . THIS IS NOT INSURANCE.] cyclobenzaprine 10 mg tablet RxNorm: 805892 1 Tablet(s) PO QHS for spasm 04/06/2014 09/01/2014 Inactive ipratropium-albuterol 0.5 mg-3 mg(2.5 mg base)/3 mL ne bulization soln RxNorm: 7634317 1 Unit Dose INH Q4H 03/16/2014 No Stop Date Active [SAVINGS FOR UNINSURED PATIENTS -- BIN:354250, PCN: ASPROD1, Group: AME08, ID# [id number], Process claim through MedImpact, for questions: . THIS IS NOT INSURANCE.] prednisone 20 mg tablet RxNorm: 700631 1 Tablet(s) PO BID 03/09/2014 03/15/2014 Inactive [SAVINGS FOR UNINSURED PATIENTS -- BIN:0 21663, PCN: ASPROD1, Group: AME08, ID# [id number], Process claim through MedImpact, for questions: . THIS IS NOT INSURANCE.] ipratropium-albuterol 0.5 mg-3 mg(2.5 mg base)/3 mL ne bulization soln RxNorm: 6456965 1 Unit Dose INH Q4H 03/09/2014 03/15/2014 Inactive [SAVINGS FOR UNINSURED PATIENTS -- BIN:592495, PCN: ASPROD1, Group: AME08, ID# [id number], Process claim through MedImpact, for questions: . THIS IS NOT INSURANCE.] Levaquin 500 mg tablet RxNorm: 295995 1 Tablet(s) PO QD 03/09/2014 Inactive [SAVINGS FOR UNINSURED PATIENTS -- BIN:0 77459, PCN: ASPROD1, Group: AME08, ID# [id number], Process claim through MedImpact, for questions: . THIS IS NOT INSURANCE.] Carafate 1 gram tablet RxNorm: 524946 1 Tablet(s) PO AC & HS ma ke into slurry 02/09/2014 09/01/2014 Inactive [SAVINGS FOR UNINSUR ED PATIENTS -- BIN:448901, PCN: ASPROD1, Group: AME08, ID# [id number], Process claim through MedImpact, for questions: . THIS IS NOT INSURANCE.] Fioricet 50 mg-300 mg-40 mg capsule RxNorm: 9171677 1-2 Capsule(s) PO Q4H as needed for headache --max of 6 a day 02/09/2014 09/01/2014 Inactive [SAVINGS FOR UNINSURED PATIENTS -- BIN:930018, PCN: ASPROD1, Group: AME08, ID# [id number], Process claim through MedImpact, for questions: . THIS IS NOT INSURANCE.] propranolol 40 mg tablet RxNorm: 687606 1 Tablet(s) PO BID 12/08/19 14 06/04/2014 Inactive [SAVINGS FOR UNINSURED PATIE NTS -- BIN:967549, PCN: ASPROD1, Group: AME08, ID# [id number], Process claim through MedImpact, for questions: . THIS IS NOT INSURANCE.] buspirone 5 mg tablet RxNorm: 913338 1 Tablet(s) PO TID 12/02/2013 Inactive omeprazole 40 mg capsule,delayed release RxNorm: 478200 1 Capsu le(s) PO BID 11/25/2013 11/19/2014 Inactive [SAVINGS FOR UNINSUR ED PATIENTS -- BIN:469223, PCN: ASPROD1, Group: AME08, ID# [id number], Process claim through MedImpact, for questions: . THIS IS NOT INSURANCE.] ropinirole 2 mg tablet RxNorm: 666245 1 Tablet(s) PO QHS 11/10/2013 0 05/08/2014 Inactive [SAVINGS FOR UNINSURED PATIENTS -- BIN:0 84264, PCN: ASPROD1, Group: AME08, ID# [id number], Process claim through MedImpact, for questions: . THIS IS NOT INSURANCE.] Cipro 500 mg tablet RxNorm: 770673 1 Tablet(s) PO BID 10/21/201312/03 Inactive [SAVINGS FOR UNINSURED PATIENTS -- BIN:0 18341, PCN: ASPROD1, Group: AME08, ID# [id number], Process claim through MedImpact, for questions: . THIS IS NOT INSURANCE.] hydroxyzine HCl 25 mg tablet RxNorm: 614550 1 Tablet(s) PO Q4-6 H as needed 10/05/2013 01/04/2016 Inactive [SAVINGS FOR UNINSUR ED PATIENTS -- BIN:987103, PCN: ASPROD1, Group: AME08, ID# [id number], Process claim through MedImpact, for questions: . THIS IS NOT INSURANCE.] triamcinolone acetonide 0.1 % topical cream RxNorm: 7105742 Appl ication TOP BID 10/05/2013 09/01/2014 Inactive [SAVINGS FOR UNINSUR ED PATIENTS -- BIN:519449, PCN: ASPROD1, Group: AME08, ID# [id number], Process claim through MedImpact, for questions: . THIS IS NOT INSURANCE.] albuterol sulfate HFA 90 mcg/actuation aerosol inhaler RxNor m: 0604054 2 Puff(s) INH Q4H as needed for cough 10/01/2013 12/22/2013 Inactive [MAKSIM INGS FOR UNINSURED PATIENTS -- BIN:227171, PCN: ASPROD1, Group: AME08, ID# [id number], Process claim through MedImpact, for questions: . THIS IS NOT INSURANCE.] propranolol 40 mg tablet RxNorm: 646554 1 Tablet(s) PO BID 09/02/19 14 11/29/2013 Inactive [SAVINGS FOR UNINSURED PATIE NTS -- BIN:391410, PCN: ASPROD1, Group: AME08, ID# [id number], Process claim through MedImpact, for questions: . THIS IS NOT INSURANCE.] propranolol 40 mg tablet RxNorm: 283973 1 Tablet(s) PO BID 08/05/19 14 08/31/2013 Inactive [SAVINGS FOR UNINSURED PATIE NTS -- BIN:069882, PCN: ASPROD1, Group: AME08, ID# [id number], Process claim through MedImpact, for questions: . THIS IS NOT INSURANCE.] Toprol XL 50 mg tablet,extended release RxNorm: 063850 1 Tablet (s) PO QHS 07/23/2013 08/03/2013 Inactive Macrobid 100 mg capsule RxNorm: 227524 1 Capsule(s) PO BID 07/04/19 14 07/09/2013 Inactive Toprol XL 50 mg tablet,extended release RxNorm: 367966 1 Tablet (s) PO QHS 05/28/2013 06/26/2013 Inactive ciprofloxacin 500 mg tablet RxNorm: 696363 1 Tablet(s) PO BID 05/2706/02/2013 Inactive Bystolic 5 mg tablet RxNorm: 374508 1 Tablet(s) PO QD 05/27/201305/03 Inactive ropinirole 2 mg tablet RxNorm: 512777 1 Tablet(s) PO QHS 04/22/2013 0 11/09/2013 Inactive Cipro 250 mg tablet RxNorm: 683659 1 Tablet(s) PO BID 04/06/201311/2013 Inactive ropinirole 2 mg tablet RxNorm: 610943 1 Tablet(s) PO QHS 02/17/2013 0 04/21/2013 Inactive Amaryl 2 mg tablet RxNorm: 585927 1 Tablet(s) PO QAM 11/11/201211/10 Inactive Amaryl 2 mg tablet RxNorm: 242334 1 Tablet(s) PO QAM 11/11/201204/05 Inactive omeprazole 40 mg capsule,delayed release RxNorm: 179610 1 Capsu le(s) PO BID 08/14/2012 08/08/2013 Inactive Bystolic 5 mg tablet RxNorm: 229768 1 Tablet(s) PO QD 08/14/201205/03 Inactive propranolol 60 mg tablet RxNorm: 140483 Tablet(s) PO TAKE 1 TAB LET TWICE DAILY 08/01/2012 09/01/2012 Inactive Bystolic 5 mg tablet RxNorm: 534114 1 Tablet(s) PO QD 07/21/201207/02 Inactive Bystolic 5 mg tablet RxNorm: 766334 1 Tablet(s) PO QD 07/21/201207/03 Inactive Prilosec 40 mg capsule,delayed release RxNorm: 524895 1 Capsule (s) PO BID 06/24/2012 07/21/2012 Inactive buspirone 10 mg tablet RxNorm: 122399 1 Tablet(s) PO TID 05/08/2012 0 05/23/2016 Inactive Valium 10 mg tablet RxNorm: 289758 1 Tablet(s) PO BID 04/02/201207/03 Inactive Endocet 10 mg-325 mg tablet RxNorm: 2896557 1 Tablet(s) PO QID 03/0607/21/2012 Inactive as needed for severe pain Valium 10 mg tablet RxNorm: 462102 1 Tablet(s) PO BID 02/27/2012 No S top Date Active Endocet 10 mg-325 mg tablet RxNorm: 0864234 1 Tablet(s) PO QID 02/0203/27/2012 Inactive as needed for severe pain Endocet 10 mg-325 mg tablet RxNorm: 2305395 1 Tablet(s) PO QID 01/0302/26/2012 Inactive as needed for severe pain Valium 10 mg tablet RxNorm: 218237 1 Tablet(s) PO BID 01/29/2012 No S top Date Active Protonix 40 mg tablet,delayed release RxNorm: 877238 1 Tablet(s ) PO QD 01/28/2012 07/21/2012 Inactive metformin ER 500 mg tablet,extended release 24 hr RxNorm: 86 0977 1 Tablet(s) PO QD 12/26/2011 07/20/2012 Inactive Trazadone 150 mg Tablet RxNorm: 1 Tablet(s) PO QHS prn sleep 1 04/23/2012 Inactive Endocet 10 mg-325 mg tablet RxNorm: 4457101 1 Tablet(s) PO QID 12/0301/24/2012 Inactive as needed for severe pain Nexium 40 mg capsule,delayed release RxNorm: 139027 1 Capsule(s ) PO QD 12/26/2011 01/27/2012 Inactive Symbicort 160 mcg-4.5 mcg/actuation HFA Aerosol Inhaler RxNo rm: 1204285 2 Puff(s) INH BID 12/04/2011 07/21/2012 Inactive Endocet 10 mg-325 mg tablet RxNorm: 6165356 1 Tablet(s) PO QID 11/0312/25/2011 Inactive as needed for severe pain metformin ER 500 mg tablet,extended release 24 hr RxNorm: 86 0977 1 Tablet(s) PO QD 11/20/2011 12/19/2011 Inactive metformin ER 500 mg tablet,extended release 24 hr RxNorm: 86 0977 1 Tablet(s) PO QD 11/20/2011 11/19/2011 Inactive amitriptyline 100 mg tablet RxNorm: 889146 Tablet(s) PO QHS 1 a nd 1/2 tabs QHS 11/12/2011 11/13/2011 Inactive Valium 10 mg tablet RxNorm: 668682 1 Tablet(s) PO BID 11/09/2011 No S top Date Active Endocet 10 mg-325 mg tablet RxNorm: 8446759 1 Tablet(s) PO QID 10/0211/14/2011 Inactive as needed for severe pain Aricept 10 mg Tab RxNorm: 054254 1 Tablet(s) PO QD 10/05/2011 013 Inactive Valium 10 mg tablet RxNorm: 281719 1 Tablet(s) PO BID 10/05/2011 No S top Date Active Endocet 10 mg-325 mg Tab RxNorm: 1557812 1 Tablet(s) PO QID 012 10/09/2011 Inactive as needed for severe pain Aricept 10 mg Tab RxNorm: 410136 1 Tablet(s) PO QD 08/14/2011 012 Inactive Endocet 10 mg-325 mg Tab RxNorm: 6873497 1 Tablet(s) PO QID 012 08/31/2011 Inactive as needed for severe pain Valium 10 mg Tab RxNorm: 145649 1 Tablet(s) PO BID 08/02/2011 No Stop Date Active propranolol 60 mg tablet RxNorm: 459835 1 Tablet(s) PO BID 07/26/19 12 09/11/2011 Inactive amitriptyline 100 mg tablet RxNorm: 959827 Tablet(s) PO QHS 1 a nd /2 tabs QHS 06/20/2011 09/11/2011 Inactive buspirone 10 mg tablet RxNorm: 119251 1 Tablet(s) PO BID 06/18/2011 0 09/15/2011 Inactive propranolol 60 mg Tab RxNorm: 725671 1 Tablet(s) PO BID 06/18/2011 Inactive gabapentin 800 mg Tab RxNorm: 107224 1 Tablet(s) PO BID 06/18/2011 Inactive ropinirole 2 mg tablet RxNorm: 918876 1 Tablet(s) PO QHS 05/29/2011 0 08/26/2011 Inactive trimethoprim 100 mg Tab RxNorm: 850825 1 Tablet(s) PO QHS 05/29/2011 07/21/2012 Inactive Endocet 10 mg-325 mg Tab RxNorm: 0550920 1 Tablet(s) PO QID 012 2011 Inactive as needed for severe pain Valium 10 mg Tab RxNorm: 943479 1 Tablet(s) PO QHS N eed to take med as prescribed. this is a 40 day RX. No early fills. 05/17/2011 05/20/2018 Inactive propranolol 60 mg Tab RxNorm: 748640 1 Tablet(s) PO BID 04/16/2011 Inactive Neurontin 800 mg Tab RxNorm: 088714 1 Tablet(s) PO QHS 04/05/201103/2011 Inactive Endocet 10 mg-325 mg Tab RxNorm: 8282073 1 Tablet(s) PO QID 012 05/02/2011 Inactive as needed for severe pain oxycodone-acetaminophen 10 mg-325 mg tablet RxNorm: 7891609 1 Ta blet(s) PO Q4H 03/28/2011 05/19/2012 Inactive Valium 10 mg Tab RxNorm: 947735 1 Tablet(s) PO QHS 03/28/2011 012 Inactive buspirone 10 mg Tab RxNorm: 106567 1 Tablet(s) PO BID 03/27/201106/02 Inactive propranolol 60 mg Tab RxNorm: 946132 1 Tablet(s) PO BID 03/19/2011 Inactive Klor-Con M20 20 mEq Tab RxNorm: 0590086 1 Tablet(s) PO QD 03/19/2011 07/21/2012 Inactive Aricept 10 mg Tab RxNorm: 074946 1 Tablet(s) PO QD 02/27/2011 012 Inactive propranolol 60 mg Tab RxNorm: 579415 1 Tablet(s) PO BID 02/19/2011 Inactive omeprazole 40 mg capsule,delayed release RxNorm: 264726 1 Capsu le(s) PO BID 01/24/2011 05/23/2011 Inactive clindamycin 300 mg capsule RxNorm: 247757 1 Capsule(s) PO TID 01/2402/02/2011 Inactive propranolol 60 mg Tab RxNorm: 230729 1 Tablet(s) PO BID 01/22/2011 No Stop Date Active nystatin 100,000 unit/g Topical Cream RxNorm: 205481 Applicatio n TOP BID 01/15/2011 01/14/2011 Inactive to rash for 2-4 week s Diflucan 200 mg Tab RxNorm: 643481 1 Tablet(s) PO QD 01/15/201101/28 Inactive buspirone 10 mg Tab RxNorm: 030716 1 Tablet(s) PO BID 01/08/201103/05 Inactive Valium 10 mg Tab RxNorm: 425210 1 Tablet(s) PO QHS 01/05/2011 012 Inactive Diflucan 200 mg Tab RxNorm: 230891 1 Tablet(s) PO QD 01/01/201101/14 Inactive Diflucan 200 mg Tab RxNorm: 180794 1 Tablet(s) PO QD 12/18/201012/31 Inactive Valium 10 mg Tab RxNorm: 235023 1 Tablet(s) PO QHS 12/12/2010 011 Inactive Diflucan 200 mg Tab RxNorm: 259367 1 Tablet(s) PO QD 12/07/201012/18 Inactive Aricept 10 mg Tab RxNorm: 285938 1 Tablet(s) PO QD 11/20/2010 011 Inactive ropinirole 1 mg Tab RxNorm: 116121 1 Tablet(s) PO QHS 11/16/201005/03 Inactive enalapril maleate 5 mg Tab RxNorm: 632604 1 Tablet(s) PO QD 011 05/20/2018 Inactive buspirone 10 mg Tab RxNorm: 831055 1 Tablet(s) PO BID 11/16/201012/02 Inactive Valium 10 mg Tab RxNorm: 801250 1 Tablet(s) PO QHS 11/07/2010 011 Inactive Pyridium 100 mg Tab RxNorm: 7257744 1 Tablet(s) PO TID 11/02/201004/2010 Inactive Macrobid 100 mg Cap RxNorm: 0608491 1 Capsule(s) PO BID 11/02/2010 Inactive buspirone 10 mg Tab RxNorm: 576152 1 Tablet(s) PO QHS 10/18/201005/02 Inactive propranolol 60 mg Tab RxNorm: 542279 1 Tablet(s) PO BID 09/18/2010 Inactive Valium 10 mg Tab RxNorm: 063220 1 Tablet(s) PO QHS 09/05/2010 011 Inactive Aricept 10 mg Tab RxNorm: 908755 1 Tablet(s) PO QD 08/14/2010 011 Inactive Valium 10 mg Tab RxNorm: 658584 1 Tablet(s) PO QHS 06/26/2010 011 Inactive ropinirole 1 mg Tab RxNorm: 180405 1 Tablet(s) PO QHS 06/19/201010/02 Inactive omeprazole 40 mg Cap, delayed release RxNorm: 170962 1 Capsule( s) PO QD 06/07/2010 10/04/2010 Inactive Endocet 10 mg-325 mg Tab RxNorm: 8811341 1 Tablet(s) PO QID as needed for severe pain 06/07/2010 03/07/2011 Inactive Endocet 10 mg-325 mg Tab RxNorm: 0250732 1 Tablet(s) PO QID as needed for severe pain 05/04/2010 06/02/2010 Inactive Valium 10 mg Tab RxNorm: 483120 1 Tablet(s) PO QHS 05/01/2010 011 Inactive propranolol 60 mg Tab RxNorm: 691498 1 Tablet(s) PO BID 04/03/2010 Inactive Valium 10 mg Tab RxNorm: 054506 1 Tablet(s) PO QHS 03/28/2010 011 Inactive omeprazole 40 mg Cap, Delayed Release RxNorm: 782432 1 Capsule( s) PO QD 03/28/2010 06/06/2010 Inactive Endocet 10 mg-325 mg Tab RxNorm: 8265497 1 Tablet(s) PO QID prn ari n 03/27/2010 05/20/2018 Inactive Valium 10 mg Tab RxNorm: 878824 1 Tablet(s) PO QHS 02/20/2010 011 Inactive Diflucan 100 mg Tab RxNorm: 590144 1 Tablet(s) PO BID 01/23/2010 1203/2009 Inactive Diflucan 100 mg Tab RxNorm: 590488 1 Tablet(s) PO BID 01/05/201001/02 Inactive Aricept 10 mg Tab RxNorm: 161177 1 Tablet(s) PO QD 12/01/2009 011 Inactive OxyContin 20 mg 12 hr Tab RxNorm: 7695727 1 Tablet(s) PO BID 200904/05/2010 Inactive oxycodone-acetaminophen 10 mg-325 mg Tab RxNorm: 7441477 1 Table t(s) PO Q4H 11/22/2009 11/26/2009 Inactive Phenergan 25 mg Tab RxNorm: 834197 1 Tablet(s) PO PRN MIGRAINE 11/0303/07/2011 Inactive Demerol 100 mg Tab RxNorm: 955777 1 Tablet(s) PO PRN MIGRAINE 11/2203/07/2011 Inactive Oxycodone-Acetaminophen 10 mg-325 mg Tab RxNorm: 2843790 1 Table t(s) PO Q4H 10/11/2009 10/15/2009 Inactive Percocet 10 mg-325 mg Tab RxNorm: 9992155 1 Tablet(s) PO Q4H 200910/24/2009 Inactive propranolol 60 mg Tab RxNorm: 885477 1 Tablet(s) PO BID 08/29/2009 Inactive Valium 10 mg Tab RxNorm: 453586 1 Tablet(s) PO QHS 08/16/2009 010 Inactive Keflex 500 mg Cap RxNorm: 910489 1 Capsule(s) PO BID 07/25/200907/31 Inactive Hydroxyzine 25 mg Tab RxNorm: 538286 1 Tablet(s) PO TID 07/25/2009 Inactive Prednisone 20 mg Tab RxNorm: 766806 1 Tablet(s) PO BID 07/25/2009 Inactive Demerol 100 mg Tab RxNorm: 401447 1 Tablet(s) PO PRN MIGRAINE 07/25 No Stop Date Active Ropinirole 1 mg Tab RxNorm: 743954 1 Tablet(s) PO HS 07/20/200902/14 Inactive Valium 10 mg Tab RxNorm: 916551 1 Tablet(s) PO QHS 07/18/2009 010 Inactive Endocet 10 mg-325 mg Tab RxNorm: 9532748 1 Tablet(s) PO TID 010 07/07/2009 Inactive Demerol 100 mg Tab RxNorm: 485777 1 Tablet(s) PO PRN MIGRAINE 06/08 No Stop Date Active Ropinirole 1 mg Tab RxNorm: 733575 1 Tablet(s) PO HS 05/16/200907/14 Inactive ipratropium-albuterol 0.5 mg-3 mg(2.5 mg base)/3 mL ne bulization soln RxNorm: 9336566 1 Unit Dose INH Q4H as needed No Start Date Active MagOx 400 mg (241.3 mg magnesium) tablet RxNorm: 552005 1 Table t(s) PO BID No Start Date Active Vitamin B12 1000mcg Tablet RxNorm: 1 Tablet(s) PO QD No Start Date Active Vitamin D3 5,000 unit tablet RxNorm: 682096 1 Tablet(s) PO QD No Star t Date Active Tylenol Arthritis Pain 650 mg tablet,extended release RxNorm : 7941432 1 Tablet(s) PO Q4H No Start Date Active Lotrimin AF 2 % topical powder RxNorm: 564226 1 Application TOP BID No Start Date Active enalapril maleate 5 mg Tab RxNorm: 906365 1 Tablet(s) PO QD No Star t Date 07/20/2012 Inactive Demerol 100 mg Tab RxNorm: 434668 Tablet(s) PO PRN MIGRAINE No Star t Date 06/02/2009 Inactive metformin 500 mg tablet RxNorm: 527886 1 Tablet(s) PO QD No Start D ate 04/05/2013 Inactive Breo Ellipta 100 mcg-25 mcg/dose powder for inhalation RxNor m: 9174740 1 Puff(s) INH BID No Start Date 01/04/2016 Inactive Mag-Oxide 400 mg Tab RxNorm: 046360 1 Tablet(s) PO QD No Start Date 0 07/21/2012 Inactive Cipro 500 mg Tab RxNorm: 918485 1 Tablet(s) PO QD No Start Date 04/05 Inactive Ativan 0.5 mg tablet RxNorm: 173061 1 Tablet(s) PO TID as needed No Start Date 05/06/2019 Inactive melatonin 3 mg tablet RxNorm: 950165 2 Tablet(s) PO QHS No Start Da te 08/19/2018 Inactive buspirone 10 mg Tab RxNorm: 892645 1 Tablet(s) PO QD No Start Date Inactive sucralfate 100 mg/mL Oral Susp RxNorm: 455107 2 Teaspoon(s) PO QID No Start Date 07/21/2012 Inactive hydrocodone 5 mg-acetaminophen 325 mg tablet RxNorm: 122898 1 Tablet(s) PO Q4H as needed No Start Date 08/19/2018 Inactive Amaryl 2 mg tablet RxNorm: 465580 1 Tablet(s) PO BID No Start Date Inactive OxyContin 20 mg 12 hr Tab RxNorm: 2470751 1 Tablet(s) PO BID No Sta rt Date 11/27/2009 Inactive propranolol 40 mg tablet RxNorm: 105622 1 Tablet(s) PO QID No Start Date 01/19/2018 Inactive Trazadone 150 mg Tablet RxNorm: 1-2 Tablet(s) PO QHS prn sleep No Start Date 08/09/2010 Inactive propranolol 60 mg Tab RxNorm: 674207 1/2 Tablet(s) PO BID No Start Date 01/21/2011 Inactive insulin NPH and regular human subcutaneous RxNorm: 2119650 subcu taneous No Start Date 11/20/2018 Inactive Ativan 0.5 mg tablet RxNorm: 446176 1 Tablet(s) PO QID No Start Date 06/18/2016 Inactive Vasotec 5 mg Tab RxNorm: 402809 1 Tablet(s) PO BID No Start Date 06/2011 Inactive Toprol XL 50 mg tablet,extended release RxNorm: 457526 1 Tablet (s) PO BID No Start Date 04/05/2013 Inactive Ativan 0.5 mg tablet RxNorm: 228196 1 Tablet(s) PO TID No Start Date 05/25/2016 Inactive Klor-Con M20 20 mEq Tab RxNorm: 7295196 1 Tablet(s) PO QD No Start Date 03/19/2011 Inactive sumatriptan 100 mg tablet RxNorm: 030473 1 Tablet(s) PO at headache onset--repeat in 2hrs if remains No Start Date 07/21/2012 Inactive propranolol 60 mg Tab RxNorm: 248567 1 Tablet(s) PO BID No Start Da te 08/28/2009 Inactive Cholestyramine Light 4 gram Oral Powder RxNorm: 0776514 1 Unit Dose PO QD in water No Start Date 07/21/2012 Inactive nystatin 100,000 unit/g Topical Powder RxNorm: 178298 Applicati on TOP BID No Start Date 07/21/2012 Inactive vitamin [id number] acid sublingual RxNorm: sublingual No Start Date 07/05/2013 Inactive cyclobenzaprine 5 mg tablet RxNorm: 761532 1/2-1 Tablet (s) PO TID as needed for muscle spasm No Start Date 07/18/2017 Inactive tramadol 50 mg tablet RxNorm: 968343 2 Tablet(s) PO TID as need ed for pain No Start Date 09/01/2014 Inactive aspirin 81 mg Tab RxNorm: 045889 1 Tablet(s) PO QOD No Start Date 04/2013 Inactive Vitamin B12 1000mcg Tablet RxNorm: 1 Tablet(s) PO QD No Start Date 07/18/2017 Inactive cholestyramine (with sugar) 4 gram oral powder RxNorm: 23967 3 1 Unit(s) PO QD as needed No Start Date 05/20/2018 Inactive ProAir HFA 90 mcg/Actuation Aerosol Inhaler RxNorm: 609103 2 Puff(s) INH Q4H prn shortness of breath No Start Date 07/21/2012 Inactive pravastatin 10 mg Tab RxNorm: 087960 1 Tablet(s) PO QD No Start Date 07/21/2012 Inactive gabapentin 800 mg Tab RxNorm: 177774 1 Tablet(s) PO BID No Start Da te 06/03/2011 Inactive Endocet 10 mg-325 mg Tab RxNorm: 4906976 1 Tablet(s) PO TID No Star t Date 06/02/2009 Inactive Naproxen 500 mg Tab RxNorm: 261754 1 Tablet(s) PO BID No Start Date 0 04/05/2010 Inactive Valium 10 mg Tab RxNorm: 766046 1 Tablet(s) PO BID No Start Date 07/04 Inactive enalapril maleate 5 mg Tab RxNorm: 940204 1 Tablet(s) PO QD No Star t Date 11/15/2010 Inactive doxepin 10 mg capsule RxNorm: 3007555 2 Capsule(s) PO QHS No Start Date 09/17/2018 Inactive MS Contin 15 mg Tab RxNorm: 733160 1 Tablet(s) PO BID No Start Date 0 09/18/2010 Inactive buspirone 5 mg tablet RxNorm: 136504 1 Tablet(s) PO TID No Start Da te 12/01/2013 Inactive [place] 3 Fish Oil Cap RxNorm: 1 Capsule(s) PO QD No Start Date 07/03 Inactive enalapril maleate 5 mg Tab RxNorm: 358904 1/2 Tablet(s) PO QD No St art Date 03/07/2011 Inactive Lyrica 75 mg capsule RxNorm: 447063 1 Capsule(s) PO QHS No Start Da te 02/08/2014 Inactive Lopressor 100 mg tablet RxNorm: 394038 1 Tablet(s) PO BID No Start Date 06/08/2018 Inactive Lantus Solostar U-100 Insulin 100 unit/mL (3 mL) subcu taneous pen RxNorm: 547546 45 Unit(s) SQ QAM No Start Date 05/20/2018 Inactive aspirin 81 mg tablet RxNorm: 116952 1 Tablet(s) PO QD No Start Date 0 09/14/2015 Inactive diltiazem CD 240 mg capsule,extended release 24 hr RxNorm: 8 46724 1 Capsule(s) PO QD No Start Date 05/25/2019 Inactive insulin NPH isophane U-100 human subcutaneous RxNorm: 174131 beckwith bcutaneous No Start Date 04/20/2019 Inactive sumatriptan 100 mg tablet RxNorm: 291509 1 Tablet(s) PO at headache onset. May repeat 1 in two hours if headache remains. Max of 2 per 24 hours No Start Date 04/01/2018 Inactive gabapentin 300 mg capsule RxNorm: 626976 1 Capsule(s) PO QHS No Sta rt Date 02/04/2018 Inactive Topamax 25 mg Tab RxNorm: 901674 Oral No Start Date 03/07/2011 In active Senokot-S 8.6 mg-50 mg Tab RxNorm: 1849001 1 Tablet(s) PO QD No Sta rt Date 03/07/2011 Inactive metformin ER 500 mg 24 hr tablet,extended release RxNorm: 18 80174 1 Tablet(s) PO QD No Start Date 05/20/2018 Inactive Symbicort 80 mcg-4.5 mcg/actuation HFA Aerosol Inhaler RxNor m: 7712031 2 Puff(s) INH BID No Start Date 04/05/2013 Inactive metoprolol tartrate 25 mg tablet RxNorm: 247521 1 Tablet(s) PO BID No Start Date 05/20/2019 Inactive propranolol 60 mg Tab RxNorm: 109790 1/2 Tablet(s) PO BID No Start Date 07/21/2012 Inactive metformin ER 500 mg 24 hr tablet,extended release RxNorm: 18 99737 2 Tablet(s) PO QD No Start Date 12/16/2017 Inactive Insulin Syringe 1 mL 29 gauge x 1/2" RxNorm: 2 s yringes daily with insulin Dx: E11.65 No Start Date 10/07/2018 Inactive Amitriptyline 75 mg Tab RxNorm: 616996 1 Tablet(s) PO QHS No Start Date 10/23/2009 Inactive donepezil 10 mg Tab RxNorm: 550247 1 Tablet(s) PO QD No Start Date Inactive Lantus Solostar U-100 Insulin 100 unit/mL (3 mL) subcu taneous pen RxNorm: 598504 36 Unit(s) SQ QAM No Start Date 12/24/2017 Inactive Miacalcin 200 unit/Actuation Nasal [place] Aerosol RxNorm: 261 204 1 [place] NASAL QD Alternate nostrils each day No Start Date 04/05/2010 Inactive Amitriptyline 150 mg Tab RxNorm: 288324 1 Tablet(s) PO QHS No Start Date 01/04/2010 Inactive Bystolic 5 mg tablet RxNorm: 684554 1 Tablet(s) PO QD No Start Date 0 08/13/2012 Inactive Aricept 10 mg Tab RxNorm: 999348 1 Tablet(s) PO QD No Start Date 11/03 Inactive Lantus Solostar U-100 Insulin 100 unit/mL (3 mL) subcu taneous pen RxNorm: 139082 50 Unit(s) SQ QAM No Start Date 08/27/2018 Inactive albuterol sulfate 2.5 mg/3 mL (0.083 %) Neb Solution RxNorm: 246582 1 Unit Dose INH QID as needed No Start Date 08/23/2015 Inactive Symbicort 160 mcg-4.5 mcg/actuation HFA Aerosol Inhaler RxNo rm: 2277415 2 Puff(s) INH BID No Start Date 12/03/2011 Inactive Savella 50 mg Tab RxNorm: 313123 1 Tablet(s) PO BID No Start Date 04/2010 Inactive amitriptyline 100 mg Tab RxNorm: 086812 1 1/2 Tablet(s) PO QHS No S tart Date 06/19/2011 Inactive nystatin 100,000 unit/g Topical Cream RxNorm: 632244 Ap plication TOP BID to rash for 2-4 weeks No Start Date 01/14/2011 Inactive Trelegy Ellipta 100 mcg-62.5 mcg-25 mcg powder for inhalatio n RxNorm: 9910274 1 Puff(s) INH QD No Start Date 12/16/2017 Inactive Lyrica 150 mg capsule RxNorm: 128996 1 Capsule(s) PO QHS No Start D ate 12/04/2015 Inactive sennosides 8.6 mg tablet RxNorm: 476795 1 Tablet(s) PO BID No Start Date 09/07/2018 Inactive metformin ER 500 mg tablet,extended release 24 hr RxNorm: 86 0975 1 Tablet(s) PO QD No Start Date 10/22/2017 Inactive Fish Oil 1,000 mg Cap RxNorm: 1 Capsule(s) PO QD No Start Date 06/2011 Inactive Zyrtec 10 mg Tab RxNorm: 0353954 1 Tablet(s) PO QD No Start Date 07/03 Inactive albuterol sulfate HFA 90 mcg/actuation aerosol inhaler RxNor m: 6333849 2 Puff(s) INH Q4H as needed for cough No Start Date 09/30/2013 Inactive trazodone 150 mg tablet RxNorm: 439533 1 Tablet(s) PO QHS No Start Date 07/21/2012 Inactive Spiriva with HandiHaler 18 mcg & inhalation capsules RxNorm: 981587 1 Capsule(s) INH QD No Start Date 04/05/2013 Inactive Coreg 3.125 mg Tab RxNorm: 014947 1 Tablet(s) PO BID No Start Date Inactive Phenergan 25 mg Tab RxNorm: 725468 Tablet(s) PO PRN MIGRAINE No Sta rt Date 11/21/2009 Inactive Vitamin D 50,000 unit Cap RxNorm: 6161187 1 Capsule(s) PO QW No Sta rt Date 03/07/2011 Inactive Januvia 100 mg tablet RxNorm: 913890 1 Tablet(s) PO QD No Start Date 10/25/2015 Inactive Eliquis 5 mg tablet RxNorm: 7294096 1 Tablet(s) PO BID No Start Date 08/19/2018 Inactive Advair Diskus 500 mcg-50 mcg/Dose for Inhalation RxNorm: 537720 1 INH BID No Start Date 07/21/2012 Inactive Vitamin D3 5,000 unit tablet RxNorm: 502787 1 Tablet(s) PO QD No St art Date 07/18/2017 Inactive Amaryl 2 mg tablet RxNorm: 907664 1 Tablet(s) PO QD No Start Date 06/2015 Inactive Actos 30 mg tablet RxNorm: 166322 1 Tablet(s) PO QD No Start Date Inactive promethazine 25 mg tablet RxNorm: 920003 1 Tablet(s) PO Q4H prn N/V No Start Date 07/21/2012 Inactive ProAir HFA 90 mcg/actuation Aerosol Inhaler RxNorm: 550583 2 Puff(s) INH Q4H prn dyspnea No Start Date 07/21/2012 Inactive Dexilant 60 mg Capsule RxNorm: 364270 1 Capsule(s) PO QD No Start D ate 01/27/2012 Inactive Lantus Solostar U-100 Insulin 100 unit/mL (3 mL) subcu taneous pen RxNorm: 334323 38 Unit(s) SQ QAM No Start Date 05/20/2018 Inactive Valium 10 mg Tab RxNorm: 953360 1 Tablet(s) PO QHS AND PRN No Start Date 10/24/2009 Inactive ZOFRAN ODT 8 mg disintegrating tablet RxNorm: 436704 1 Tablet(s ) PO Q6H No Start [...] Date S ervice Location MICROALBUMIN URINE RANDOM 11943 MICRL MG/L 14.9 MG/L Unknown MICROALBUMIN URINE RANDOM 63749 XM.ALB/CRE 6.1 MG/GCR Unknown MICROALBUMIN URINE RANDOM 15943 CREAT MG/D 243 MG/DL Unknown MICROALBUMIN URINE RANDOM 39813 CRE/100 2.43 G/L 03/05 Unknown PROTEIN/CREAT URINE WITH RATIO 76218|41117 PROT R U 14 MG/D L 04/01/2014 Unknown PROTEIN/CREAT URINE WITH RATIO 53229|13385 CREAT R U 254 MG/ DL 04/01/2014 Unknown PROTEIN/CREAT URINE WITH RATIO 12374|87297 XRATIO P/C 55 MG/ G 04/01/2014 Unknown URINALYSIS 34625 PROTEIN UR NEG 04/28/2010 Unknown URINALYSIS 90686 HEMGLBN UR NEG 04/28/2010 Unknown URINALYSIS 82361 GLUCOSE UR NEG 04/28/2010 Unknown URINALYSIS 75408 KETONES UR NEG 04/28/2010 Unknown URINALYSIS 94517 PH U 5.5 04/28/2010 Unknown URINALYSIS 51990 SP GR U 1.025 04/28/2010 Unknown URINALYSIS 66869 BILRUBN UR NEG 04/28/2010 Unknown URINALYSIS 92073 LEUKO UR 2+ 04/28/2010 Unknown URINALYSIS 93772 NITRITE UR NEG 04/28/2010 Unknown MICR CUL? [id number] WBC/HPF 6-10 04/28/2010 Unknown MICR CUL? 9011977 RBC/HPF 0-5 04/28/2010 Unknown MICR CUL? [id number] HYAL CAST 16-25 04/28/2010 Unknown MICR CUL? [id number] SP TO YOLIE? NO 04/28/2010 Unknown MICR CUL? [id number] APPEAR UR NORMAL 04/28/2010 Unknown MICR CUL? [id number] SQ EPI/LPF FEW 04/28/2010 Unknown Procedures Procedure Codes Date URINALYSIS NONAUTO W/O SCOPE CPT-4: 18399 04/16/2019 URINE CULTURE/ COLONY COUNT CPT-4: 29010 04/16/2019 CEFTRIAXONE SODIUM INJECTION CPT-4: J0696 04/16/2019 THER/PROPH/DIAG INJ SC/IM CPT-4: 63957 04/16/2019 DRAIN/INJECT JOINT/BURSA CPT-4: 19016 01/22/2019 TRIAMCINOLONE ACET INJ NOS CPT-4: J3301 01/22/2019 DEXAMETHASONE SODIUM PHOS CPT-4: J1100 01/22/2019 URINE CULTURE/ COLONY COUNT CPT-4: 65497 01/07/2019 URINALYSIS NONAUTO W/O SCOPE CPT-4: 57018 01/07/2019 CEFTRIAXONE SODIUM INJECTION CPT-4: J0696 01/07/2019 THER/PROPH/DIAG INJ SC/IM CPT-4: 92552 01/07/2019 FLU VACC PRSV FREE INC ANTIG 65 AND OLDER CPT-4: 31287 12/24/2018 FLU VACC PRSV FREE INC ANTIG 65 AND OLDER CPT-4: 91500 12/24/2018 ADMIN INFLUENZA VIRUS VAC CPT-4: G0008 12/24/2018 THER/PROPH/DIAG INJ SC/IM CPT-4: 15336 11/04/2018 KETOROLAC TROMETHAMINE INJ CPT-4: J1885 11/04/2018 PROMETHAZINE HCL INJECTION CPT-4: J2550 11/04/2018 PPPS, subseq visit CPT-4: G0439 09/18/2018 THER/PROPH/DIAG INJ SC/IM CPT-4: 10124 04/01/2018 KETOROLAC TROMETHAMINE INJ CPT-4: J1885 04/01/2018 PROMETHAZINE HCL INJECTION CPT-4: J2550 04/01/2018 URINE CULTURE/ COLONY COUNT CPT-4: 95859 03/17/2018 URINALYSIS NONAUTO W/O SCOPE CPT-4: 38884 03/17/2018 FLU VACC PRSV FREE INC ANTIG 65 AND OLDER CPT-4: 59114 12/17/2017 PNEUMOCOCCAL VACC 23 RANDALL IM CPT-4: 89723 12/17/2017 ADMIN INFLUENZA VIRUS VAC CPT-4: G0008 12/17/2017 ADMIN PNEUMOCOCCAL VACCINE CPT-4: G0009 12/17/2017 PPPS, subseq visit CPT-4: G0439 09/17/2017 THER/PROPH/DIAG INJ SC/IM CPT-4: 47038 08/26/2017 KETOROLAC TROMETHAMINE INJ CPT-4: J1885 08/26/2017 PROMETHAZINE HCL INJECTION CPT-4: J2550 08/26/2017 URINALYSIS NONAUTO W/O SCOPE CPT-4: 23563 07/19/2017 URINE CULTURE/ COLONY COUNT CPT-4: 15006 07/19/2017 CEFTRIAXONE SODIUM INJECTION CPT-4: J0696 07/19/2017 THER/PROPH/DIAG INJ SC/IM CPT-4: 67592 07/19/2017 THER/PROPH/DIAG INJ SC/IM CPT-4: 00967 07/19/2017 TRIAMCINOLONE ACET INJ NOS CPT-4: J3301 07/19/2017 PRESCRIP TRANSMIT VIA ERX SY CPT-4: G8553 05/07/2017 PRESCRIP TRANSMIT VIA ERX SY CPT-4: G8553 02/22/2017 PRESCRIP TRANSMIT VIA ERX SY CPT-4: G8553 01/23/2017 FLU VACC PRSV FREE INC ANTIG 65 AND OLDER CPT-4: 73439 12/20/2016 PNEUMOCOCCAL VACC 13 RANDALL IM CPT-4: 99113 12/20/2016 ADMIN INFLUENZA VIRUS VAC CPT-4: G0008 12/20/2016 ADMIN PNEUMOCOCCAL VACCINE CPT-4: G0009 12/20/2016 URINALYSIS NONAUTO W/O SCOPE CPT-4: 61838 10/08/2016 URINE CULTURE/ COLONY COUNT CPT-4: 56292 10/08/2016 PRESCRIP TRANSMIT VIA ERX SY CPT-4: G8553 10/08/2016 PRESCRIP TRANSMIT VIA ERX SY CPT-4: G8553 09/19/2016 PRESCRIP TRANSMIT VIA ERX SY CPT-4: G8553 08/20/2016 PRESCRIP TRANSMIT VIA ERX SY CPT-4: G8553 02/29/2016 KETOROLAC TROMETHAMINE INJ CPT-4: J1885 02/02/2016 THER/PROPH/DIAG INJ SC/IM CPT-4: 24410 02/02/2016 PROMETHAZINE HCL INJECTION CPT-4: J2550 02/02/2016 PRESCRIP TRANSMIT VIA ERX SY CPT-4: G8553 02/02/2016 FLU VACC PRSV FREE INC ANTIG 65 AND OLDER CPT-4: 32960 01/05/2016 PPPS, subseq visit CPT-4: G0439 01/05/2016 ADMIN INFLUENZA VIRUS VAC CPT-4: G0008 01/05/2016 URINE CULTURE/ COLONY COUNT CPT-4: 94340 12/05/2015 URINALYSIS NONAUTO W/O SCOPE CPT-4: 79658 12/05/2015 PRESCRIP TRANSMIT VIA ERX SY CPT-4: G8553 12/05/2015 PRESCRIP TRANSMIT VIA ERX SY CPT-4: G8553 10/26/2015 URINALYSIS NONAUTO W/O SCOPE CPT-4: 67825 10/05/2015 URINE CULTURE/ COLONY COUNT CPT-4: 60768 10/05/2015 PRESCRIP TRANSMIT VIA ERX SY CPT-4: G8553 10/05/2015 MD SERVICE REQUIRED FOR PMD CPT-4: G0372 09/15/2015 PRESCRIP TRANSMIT VIA ERX SY CPT-4: G8553 09/15/2015 SPECIAL REPORTS OR FORMS CPT-4: 22953 08/25/2015 PRESCRIP TRANSMIT VIA ERX SY CPT-4: G8553 07/05/2015 URINALYSIS NONAUTO W/O SCOPE CPT-4: 75917 03/30/2015 ASSAY, GLUCOSE, BLOOD QUANT CPT-4: 66256 03/30/2015 URINE CULTURE/ COLONY COUNT CPT-4: 22148 03/30/2015 PRESCRIP TRANSMIT VIA ERX SY CPT-4: G8553 03/30/2015 PRESCRIP TRANSMIT VIA ERX SY CPT-4: G8553 02/03/2015 FLU VACC PRSV FREE INC ANTIG 65 AND OLDER CPT-4: 68342 12/29/2014 ADMIN INFLUENZA VIRUS VAC CPT-4: G0008 12/29/2014 PRESCRIP TRANSMIT VIA ERX SY CPT-4: G8553 12/29/2014 PRESCRIP TRANSMIT VIA ERX SY CPT-4: G8553 09/02/2014 PROTEIN/CREAT URINE WITH RATIO CPT-4: 07007|90533 5 MICROALBUMIN QUANTITATIVE CPT-4: 23391 04/01/2014 PRESCRIP TRANSMIT VIA ERX SY CPT-4: G8553 03/16/2014 PRESCRIP TRANSMIT VIA ERX SY CPT-4: G8553 03/09/2014 THER/PROPH/DIAG INJ SC/IM CPT-4: 14364 03/01/2014 TRIAMCINOLONE ACET INJ NOS CPT-4: J3301 03/01/2014 PRESCRIP TRANSMIT VIA ERX SY CPT-4: G8553 02/09/2014 URINE CULTURE/ COLONY COUNT CPT-4: 87607 10/30/2013 URINALYSIS NONAUTO W/O SCOPE CPT-4: 79455 10/21/2013 URINE CULTURE/ COLONY COUNT CPT-4: 12619 10/21/2013 DESTRUCT PREMALG LESION (Cryosurgery) CPT-4: 10226 PRESCRIP TRANSMIT VIA ERX SY CPT-4: G8553 10/05/2013 URINALYSIS NONAUTO W/O SCOPE CPT-4: 50621 08/04/2013 URINE CULTURE/ COLONY COUNT CPT-4: 84581 08/04/2013 PRESCRIP TRANSMIT VIA ERX SY CPT-4: G8553 08/04/2013 THER/PROPH/DIAG INJ SC/IM CPT-4: 44707 07/13/2013 TRIAMCINOLONE ACET INJ NOS CPT-4: J3301 07/13/2013 PRESCRIP TRANSMIT VIA ERX SY CPT-4: G8553 05/27/2013 URINALYSIS NONAUTO W/O SCOPE CPT-4: 95283 05/25/2013 URINE CULTURE/ COLONY COUNT CPT-4: 77278 05/25/2013 THER/PROPH/DIAG INJ SC/IM CPT-4: 68912 05/04/2013 VITAMIN B12 INJECTION CPT-4: J3420 05/04/2013 THER/PROPH/DIAG INJ SC/IM CPT-4: 33527 04/17/2013 VITAMIN B12 INJECTION CPT-4: J3420 04/17/2013 THER/PROPH/DIAG INJ SC/IM CPT-4: 75217 04/17/2013 METHYLPREDNISOLONE 40 MG INJ CPT-4: J1030 04/17/2013 TRIAMCINOLONE ACET INJ NOS CPT-4: J3301 04/17/2013 URINALYSIS NONAUTO W/O SCOPE CPT-4: 51937 04/06/2013 URINE CULTURE/ COLONY COUNT CPT-4: 36551 04/06/2013 PRESCRIP TRANSMIT VIA ERX SY CPT-4: G8553 04/06/2013 KETOROLAC TROMETHAMINE INJ CPT-4: J1885 06/25/2012 PROMETHAZINE HCL INJECTION CPT-4: J2550 06/25/2012 THER/PROPH/DIAG INJ SC/IM CPT-4: 53079 06/25/2012 THER/PROPH/DIAG INJ SC/IM CPT-4: 35391 06/24/2012 METHYLPREDNISOLONE 40 MG INJ CPT-4: J1030 06/24/2012 TRIAMCINOLONE ACET INJ NOS CPT-4: J3301 06/24/2012 URINE CULTURE/ COLONY COUNT CPT-4: 93453 06/24/2012 THER/PROPH/DIAG INJ SC/IM CPT-4: 62451 05/20/2012 KETOROLAC TROMETHAMINE INJ CPT-4: J1885 05/20/2012 THER/PROPH/DIAG INJ SC/IM CPT-4: 33283 05/20/2012 PROMETHAZINE HCL INJECTION CPT-4: J2550 05/20/2012 DRAIN/INJECT JOINT/BURSA CPT-4: 51360 02/13/2012 METHYLPREDNISOLONE 40 MG INJ CPT-4: J1030 02/13/2012 TRIAMCINOLONE ACET INJ NOS CPT-4: J3301 02/13/2012 THER/PROPH/DIAG INJ SC/IM CPT-4: 99711 11/14/2011 METHYLPREDNISOLONE 40 MG INJ CPT-4: J1030 11/14/2011 TRIAMCINOLONE ACET INJ NOS CPT-4: J3301 11/14/2011 THER/PROPH/DIAG INJ SC/IM CPT-4: 40939 09/12/2011 KETOROLAC TROMETHAMINE INJ CPT-4: J1885 09/12/2011 THER/PROPH/DIAG INJ SC/IM CPT-4: 39369 08/09/2011 METHYLPREDNISOLONE 40 MG INJ CPT-4: J1030 08/09/2011 TRIAMCINOLONE ACET INJ NOS CPT-4: J3301 08/09/2011 URINE CULTURE/ COLONY COUNT CPT-4: 60196 07/03/2011 URINE CULTURE/ COLONY COUNT CPT-4: 44501 06/04/2011 THER/PROPH/DIAG INJ SC/IM CPT-4: 96295 05/03/2011 METHYLPREDNISOLONE 40 MG INJ CPT-4: J1030 05/03/2011 TRIAMCINOLONE ACET INJ NOS CPT-4: J3301 05/03/2011 URINALYSIS NONAUTO W/O SCOPE CPT-4: 47855 01/24/2011 URINE CULTURE/ COLONY COUNT CPT-4: 39754 01/24/2011 FLUZONE, 5ML (Medicare) CPT-4: Q2038 01/02/2011 ADMIN INFLUENZA VIRUS VAC CPT-4: G0008 01/02/2011 ASSAY, GLUCOSE, BLOOD QUANT CPT-4: 09403 12/07/2010 URINE CULTURE/ COLONY COUNT CPT-4: 60861 11/02/2010 THER/PROPH/DIAG INJ SC/IM CPT-4: 71573 10/18/2010 METHYLPREDNISOLONE 40 MG INJ CPT-4: J1030 10/18/2010 TRIAMCINOLONE ACET INJ NOS CPT-4: J3301 10/18/2010 TRIAMCINOLONE ACET INJ NOS CPT-4: J3301 05/11/2010 METHYLPREDNISOLONE 40 MG INJ CPT-4: J1030 05/11/2010 THER/PROPH/DIAG INJ SC/IM CPT-4: 51347 05/11/2010 TRIAMCINOLONE ACET INJ NOS CPT-4: J3301 02/09/2010 METHYLPREDNISOLONE 40 MG INJ CPT-4: J1030 02/09/2010 THER/PROPH/DIAG INJ SC/IM CPT-4: 18761 02/09/2010 MD SERVICE REQUIRED FOR PMD CPT-4: G0372 02/09/2010 FLU VACCINE 3 YRS & > IM UP 64 CPT-4: 75981 0 PNEUMOCOCCAL VACC 23 RANDALL IM CPT-4: 95554 12/07/2009 ADMIN INFLUENZA VIRUS VAC CPT-4: G0008 12/07/2009 ADMIN PNEUMOCOCCAL VACCINE CPT-4: G0009 12/07/2009 TRIAMCINOLONE ACET INJ NOS CPT-4: J3301 05/26/2009 THER/PROPH/DIAG INJ SC/IM CPT-4: 88640 05/26/2009 METHYLPREDNISOLONE 80 MG INJ CPT-4: J1040 [...] 1: 114/72 Code: 8480-6 BMI: 37.8 Code: 64284-7 Heart Rate 1: 72 bpm Height: 5'3" [...] 1: 106/68 Code: 8480-6 BMI: 35.7 Code: 04302-2 Heart Rate 1: 72 bpm Height: 5'4" Respiratory Rate: 20 bpm SpO2: 98% Tempera ture: 36.7 (C) / 98.0 (F) Weight: 208 lbs 04/16/2018 Blood Pressure 1: 132/82 Code: 8480-6 BMI: 37.9 Code: 37953-4 Heart Rate 1: 72 bpm Height: 5'4" Respiratory Rate: 20 bpm SpO2: 96% Tempera ture: 37.1 (C) / 98.8 (F) Weight: 221 lbs 04/01/2018 Blood Pressure 1: 150/90 Code: 8480-6 Heart Rate 1: 72 bpm Respiratory Rate: 22 bpm SpO2: 95% Temperature: 36.4 (C) / 97.6 (F) We ight: 216 lbs 03/06/2018 Blood Pressure 1: 126/78 Code: 8480-6 BMI: 37.4 Code: 73511-2 Heart Rate 1: 68 bpm Height: 5'4" [...] ight: 222 lbs 12/25/2017 BMI: 37.8 Code: 08003-1 Heart Rate 1: 76 bpm Height: 5 '4" Respiratory Rate: 20 bpm SpO2: 96% Temperature: 37.3 (C) / 99.2 (F) Weight: 220 lbs 12/17/2017 Blood Pressure 1: 132/78 Code: 8480-6 BMI: 37.2 Code: 62975-8 Heart Rate 1: 88 bpm Height: 5'4" Respiratory Rate: 20 bpm SpO2: 96% Tempera ture: 37.3 (C) / 99.2 (F) Weight: 217 lbs 10/30/2017 Blood Pressure 1: 114/68 Code: 8480-6 BMI: 36.4 Code: 01318-9 Heart Rate 1: 72 bpm Height: 5'4" Respiratory Rate: 22 bpm SpO2: 96% Tempera ture: 36.8 (C) / 98.2 (F) Weight: 212 lbs 10/23/2017 Blood Pressure 1: 124/78 Code: 8480-6 Heart Rate 1: 72 bpm Respiratory Rate: 24 bpm SpO2: 94% Temperature: 36.6 (C) / 97.9 (F) We ight: 212 lbs 09/17/2017 Blood Pressure 1: 128/82 Code: 8480-6 BMI: 37.4 Code: 37021-3 Heart Rate 1: 72 bpm Height: 5'4" Respiratory Rate: 20 bpm SpO2: 96% Tempera ture: 37.0 (C) / 98.6 (F) Weight: 218 lbs 07/19/2017 Blood Pressure 1: 136/84 Code: 8480-6 BMI: 36.6 Code: 61800-3 Heart Rate 1: 88 bpm Height: 5'4" Respiratory Rate: 20 bpm SpO2: 97% Tempera ture: 36.7 (C) / 98.0 (F) Weight: 213 lbs 05/29/2017 Blood Pressure 1: 136/82 Code: 8480-6 BMI: 36.7 Code: 71835-1 Heart Rate 1: 72 bpm Height: 5'4" Respiratory Rate: 20 bpm SpO2: 97% Tempera ture: 36.9 (C) / 98.4 (F) Weight: 214 lbs 05/07/2017 Blood Pressure 1: 122/80 Code: 8480-6 BMI: 37.1 Code: 85519-6 Heart Rate 1: 80 bpm Height: 5'4" Respiratory Rate: 24 bpm SpO2: 96% Tempera ture: 36.1 (C) / 97.0 (F) Weight: 216 lbs 03/18/2017 BMI: 36.7 Code: 08322-0 Heart Rate 1: 80 bpm Height: 5 '4" Respiratory Rate: 22 bpm SpO2: 95% Temperature: 36.9 (C) / 98.4 (F) Weight: 214 lbs 02/27/2017 Blood Pressure 1: 146/94 Code: 8480-6 BMI: 36.6 Code: 74385-9 Heart Rate 1: 76 bpm Height: 5'4" Respiratory Rate: 22 bpm SpO2: 97% Tempera ture: 36.6 (C) / 97.9 (F) Weight: 213 lbs 02/22/2017 Blood Pressure 1: 126/90 Code: 8480-6 BMI: 36.4 Code: 06114-4 Heart Rate 1: 84 bpm Height: 5'4" Respiratory Rate: 22 bpm SpO2: 95% Tempera ture: 36.9 (C) / 98.4 (F) Weight: 212 lbs 01/23/2017 Blood Pressure 1: 146/82 Code: 8480-6 BMI: 37.6 Code: 52756-9 Heart Rate 1: 96 bpm Height: 5'4" Respiratory Rate: 20 bpm SpO2: 96% Tempera ture: 36.9 (C) / 98.4 (F) Weight: 219 lbs 12/20/2016 Blood Pressure 1: 126/70 Code: 8480-6 BMI: 37.2 Code: 46364-0 Heart Rate 1: 76 bpm Height: 5'4" Respiratory Rate: 22 bpm SpO2: 95% Tempera ture: 36.6 (C) / 97.8 (F) Weight: 217 lbs 10/08/2016 Blood Pressure 1: 128/82 Code: 8480-6 BMI: 36.9 Code: 71923-4 Heart Rate 1: 76 bpm Height: 5'4" Respiratory Rate: 20 bpm SpO2: 95% Tempera ture: 37.0 (C) / 98.6 (F) Weight: 215 lbs 09/19/2016 Blood Pressure 1: 144/78 Code: 8480-6 BMI: 37.8 Code: 37173-6 Heart Rate 1: 76 bpm Height: 5'4" Respiratory Rate: 22 bpm SpO2: 95% Tempera ture: 37.0 (C) / 98.6 (F) Weight: 220 lbs 08/20/2016 Blood Pressure 1: 140/86 Code: 8480-6 BMI: 37.4 Code: 24251-1 Heart Rate 1: 80 bpm Height: 5'4" Respiratory Rate: 20 bpm SpO2: 95% Tempera ture: 36.9 (C) / 98.4 (F) Weight: 218 lbs 06/19/2016 Blood Pressure 1: 124/78 Code: 8480-6 BMI: 37.8 Code: 74799-4 Heart Rate 1: 74 bpm Height: 5'4" Respiratory Rate: 24 bpm SpO2: 96% Tempera ture: 36.9 (C) / 98.4 (F) Weight: 220 lbs 06/04/2016 Blood Pressure 1: 124/78 Code: 8480-6 BMI: 38.8 Code: 22785-1 Heart Rate 1: 72 bpm Height: 5'4" Respiratory Rate: 24 bpm SpO2: 95% Tempera ture: 36.8 (C) / 98.2 (F) Weight: 226 lbs 05/02/2016 Blood Pressure 1: 136/90 Code: 8480-6 BMI: 37.6 Code: 75937-8 Heart Rate 1: 72 bpm Height: 5'4" Respiratory Rate: 24 bpm SpO2: 96% Tempera ture: 36.9 (C) / 98.4 (F) Weight: 219 lbs 04/03/2016 Blood Pressure 1: 12678 Code: 8480-6 BMI: 38.1 Code: 19591-5 Heart Rate 1: 72 bpm Height: 5'4" Respiratory Rate: 22 bpm SpO2: 94% Tempera ture: 36.9 (C) / 98.4 (F) Weight: 222 lbs 02/29/2016 Blood Pressure 1: 132/78 Code: 8480-6 Heart Rate 1: 78 bpm Height: Respiratory Rate: 24 bpm SpO2: 95% Temperature: 36.4 (C) / 97.6 (F) We ight: 02/02/2016 Blood Pressure 1: 12478 Code: 8480-6 BMI: 37.6 Code: 78327-6 Heart Rate 1: 76 bpm Height: 5'4" Respiratory Rate: 20 bpm SpO2: 95% Tempera ture: 36.8 (C) / 98.2 (F) Weight: 219 lbs 01/05/2016 Blood Pressure 1: 126/70 Code: 8480-6 BMI: 37.1 Code: 12980-7 Heart Rate 1: 76 bpm Height: 5'4" Respiratory Rate: 20 bpm Temperature: 36 .6 (C) / 97.8 (F) Weight: 216 lbs 12/05/2015 Blood Pressure 1: 126/72 Code: 8480-6 BMI: 36.9 Code: 04159-9 Heart Rate 1: 92 bpm Height: 5'4" Respiratory Rate: 20 bpm Temperature: 36 .7 (C) / 98.1 (F) Weight: 215 lbs 10/26/2015 Blood Pressure 1: 142/80 Code: 8480-6 BMI: 36.4 Code: 43517-1 Heart Rate 1: 82 bpm Height: 5'4" Respiratory Rate: 24 bpm SpO2: 92% Tempera ture: 35.9 (C) / 96.7 (F) Weight: 212 lbs 10/05/2015 Blood Pressure 1: 136/82 Code: 8480-6 Heart Rate 1: 80 bpm Respiratory Rate: 18 bpm SpO2: 98% Temperature: 35.7 (C) / 96.3 (F) We ight: 214 lbs 09/15/2015 Blood Pressure 1: 11680 Code: 8480-6 BMI: 34.6 Code: 23934-4 Heart Rate 1: 76 bpm Height: 5'6" Respiratory Rate: 20 bpm Temperature: 36 .6 (C) / 97.9 (F) Weight: 211 lbs 08/24/2015 Blood Pressure 1: 124 Code: 8480-6 BMI: 34.1 Code: 93215-1 Heart Rate 1: 68 bpm Height: 5'6" Respiratory Rate: 20 bpm Temperature: 36 .8 (C) / 98.3 (F) Weight: 208 lbs 07/05/2015 Blood Pressure 1: 11478 Code: 8480-6 BMI: 33.9 Code: 41436-2 Heart Rate 1: 80 bpm Height: 5'6" Respiratory Rate: 20 bpm Temperature: 36 .6 (C) / 97.9 (F) Weight: 207 lbs 06/06/2015 Blood Pressure 1: 122/78 Code: 8480-6 BMI: 34.1 Code: 20040-4 Heart Rate 1: 76 bpm Height: 5'6" Respiratory Rate: 24 bpm SpO2: 96% Tempera ture: 36.4 (C) / 97.6 (F) Weight: 208 lbs 05/23/2015 Blood Pressure 1: 124/78 Code: 8480-6 Heart Rate 1: 76 bpm Respiratory Rate: 24 bpm SpO2: 93% Temperature: 36.8 (C) / 98.2 (F) We ight: 212 lbs 05/05/2015 Blood Pressure 1: 136/80 Code: 8480-6 BMI: 35.4 Code: 52152-3 Heart Rate 1: 76 bpm Height: 5'6" Respiratory Rate: 28 bpm Temperature: 37 .0 (C) / 98.6 (F) Weight: 216 lbs 03/30/2015 Blood Pressure 1: 132/86 Code: 8480-6 BMI: 35.2 Code: 36588-0 Heart Rate 1: 84 bpm Height: 5'6" Respiratory Rate: 24 bpm Temperature: 36 .7 (C) / 98.0 (F) Weight: 215 lbs 02/03/2015 Blood Pressure 1: 122/74 Code: 8480-6 BMI: 35.7 Code: 56718-2 Heart Rate 1: 84 bpm Height: 5'6" Respiratory Rate: 20 bpm Temperature: 36 .9 (C) / 98.5 (F) Weight: 218 lbs 12/29/2014 Blood Pressure 1: 132/80 Code: 8480-6 BMI: 35.1 Code: 87988-4 Heart Rate 1: 80 bpm Height: 5'6" Respiratory Rate: 20 bpm Temperature: 36 .6 (C) / 97.8 (F) Weight: 214 lbs 09/02/2014 Blood Pressure 1: 128/92 Code: 8480-6 BMI: 34.7 Code: 28417-6 Heart Rate 1: 84 bpm Height: 5'6" Respiratory Rate: 26 bpm Temperature: 36 .8 (C) / 98.2 (F) Weight: 212 lbs 08/25/2014 Blood Pressure 1: 124/80 Code: 8480-6 BMI: 34.7 Code: 50548-3 Heart Rate 1: 78 bpm Height: 5'6" Respiratory Rate: 22 bpm SpO2: 97% Tempera ture: 36.6 (C) / 97.8 (F) Weight: 212 lbs 04/01/2014 Blood Pressure 1: 142/84 Code: 8480-6 BMI: 34.4 Code: 75170-0 Heart Rate 1: 74 bpm Height: 5'5" Respiratory Rate: 20 bpm Temperature: 36 .4 (C) / 97.6 (F) Weight: 207 lbs 03/16/2014 Blood Pressure 1: 142/90 Code: 8480-6 BMI: 34.6 Code: 59048-0 Heart Rate 1: 76 bpm Height: 5'5" Respiratory Rate: 24 bpm Temperature: 36 .5 (C) / 97.7 (F) Weight: 208 lbs 03/09/2014 Blood Pressure 1: 116/70 Code: 8480-6 BMI: 35.3 Code: 90525-9 Heart Rate 1: 72 bpm Height: 5'5" [...] 1: 128/86 Code: 8480-6 BMI: 34.3 Code: 67403-1 Heart Rate 1: 84 bpm Height: 5'5" Respiratory Rate: 20 bpm Temperature: 36 .7 (C) / 98.0 (F) Weight: 206 lbs 12/23/2013 Blood Pressure 1: 122/70 Code: 8480-6 BMI: 34.3 Code: 77853-3 Heart Rate 1: 68 bpm Height: 5'5" Respiratory Rate: 20 bpm Temperature: 36 .8 (C) / 98.2 (F) Weight: 206 lbs 10/05/2013 Blood Pressure 1: 118/76 Code: 8480-6 BMI: 34.1 Code: 87775-1 Heart Rate 1: 68 bpm Height: 5'5" Respiratory Rate: 20 bpm SpO2: 98% Tempera ture: 36.6 (C) / 97.9 (F) Weight: 205 lbs 08/04/2013 Blood Pressure 1: 126/82 Code: 8480-6 BMI: 33.3 Code: 09736-9 Heart Rate 1: 76 bpm Height: 5'5" Respiratory Rate: 20 bpm Temperature: 36 .8 (C) / 98.2 (F) Weight: 200 lbs 07/03/2013 Blood Pressure 1: 124/82 Code: 8480-6 BMI: 33.3 Code: 03562-0 Heart Rate 1: 72 bpm Height: 5'5" Respiratory Rate: 22 bpm Temperature: 36 .1 (C) / 97.0 (F) Weight: 200 lbs 05/27/2013 Blood Pressure 1: 126/82 Code: 8480-6 Heart Rate 1: 74 bpm Respiratory Rate: 20 bpm Temperature: 36.0 (C) / 96.8 (F) Weight: 199 lbs 04/06/2013 Blood Pressure 1: 118/80 Code: 8480-6 BMI: 35.2 Code: 42181-0 Heart Rate 1: 80 bpm Height: 5'4" Respiratory Rate: 20 bpm Temperature: 37 .4 (C) / 99.3 (F) Weight: 205 lbs 11/10/2012 Blood Pressure 1: 128/82 Code: 8480-6 Heart Rate 1: 84 bpm Respiratory Rate: 20 bpm Temperature: 36.7 (C) / 98.0 (F) Weight: 199 lbs 09/02/2012 Blood Pressure 1: 116/82 Code: 8480-6 BMI: 34.2 Code: 65582-8 Heart Rate 1: 88 bpm Height: 5'4" Respiratory Rate: 22 bpm Temperature: 36 .6 (C) / 97.8 (F) Weight: 199 lbs 08/04/2012 Blood Pressure 1: 128/74 Code: 8480-6 BMI: 34.0 Code: 84888-9 Heart Rate 1: 92 bpm Height: 5'4" Respiratory Rate: 20 bpm Temperature: 36 .4 (C) / 97.5 (F) Weight: 198 lbs 07/21/2012 Blood Pressure 1: 124/86 Code: 8480-6 Heart Rate 1: 116 bpm Respiratory Rate: 24 bpm Temperature: 36.8 (C) / 98.2 (F) 07/02/2012 Blood Pressure 1: 116/88 Code: 8480-6 BMI: 33.6 Code: 14509-1 Heart Rate 1: 76 bpm Height: 5'4" Respiratory Rate: 20 bpm Temperature: 36 .8 (C) / 98.3 (F) Weight: 196 lbs 06/24/2012 Blood Pressure 1: 124/80 Code: 8480-6 BMI: 34.3 Code: 86404-2 Heart Rate 1: 72 bpm Height: 5'4" SpO2: 96% Temperature: 36.3 (C) / 97.3 (F) Weight: 200 lbs 05/20/2012 Blood Pressure 1: 116/88 Code: 8480-6 BMI: 33.8 Code: 81630-9 Heart Rate 1: 80 bpm Height: 5'4" Respiratory Rate: 22 bpm Temperature: 36 .9 (C) / 98.4 (F) Weight: 197 lbs 05/08/2012 Blood Pressure 1: 128/86 Code: 8480-6 BMI: 33.8 Code: 67469-3 Heart Rate 1: 76 bpm Height: 5'4" Respiratory Rate: 26 bpm SpO2: 95% Tempera ture: 36.1 (C) / 97.0 (F) Weight: 197 lbs 04/22/2012 Blood Pressure 1: 106/64 Code: 8480-6 BMI: 33.8 Code: 52424-7 Heart Rate 1: 70 bpm Height: 5'4" Temperature: 36.1 (C) / 97.0 (F) Weight: 197 lbs 02/13/2012 Blood Pressure 1: 126/82 Code: 8480-6 BMI: 34.7 Code: 48260-4 Heart Rate 1: 64 bpm Height: 5'4" Respiratory Rate: 20 bpm Temperature: 36 .6 (C) / 97.8 (F) Weight: 202 lbs 01/28/2012 Blood Pressure 1: 116/80 Code: 8480-6 BMI: 34.7 Code: 01871-7 Heart Rate 1: 76 bpm Height: 5'4" Respiratory Rate: 20 bpm Temperature: 36 .8 (C) / 98.3 (F) Weight: 202 lbs 12/26/2011 Blood Pressure 1: 132/82 Code: 8480-6 BMI: 36.0 Code: 47178-7 Heart Rate 1: 68 bpm Height: 5'4" Respiratory Rate: 22 bpm Temperature: 36 .7 (C) / 98.0 (F) Weight: 210 lbs 11/14/2011 Blood Pressure 1: 124/80 Code: 8480-6 BMI: 36.4 Code: 60508-2 Heart Rate 1: 76 bpm Height: 5'4" Respiratory Rate: 20 bpm Temperature: 36 .8 (C) / 98.2 (F) Weight: 212 lbs 09/12/2011 Blood Pressure 1: 108/74 Code: 8480-6 BMI: 37.1 Code: 55834-0 Heart Rate 1: 72 bpm Height: 5'4" Respiratory Rate: 20 bpm Temperature: 37 .0 (C) / 98.6 (F) Weight: 216 lbs 08/15/2011 Blood Pressure 1: 122/80 Code: 8480-6 BMI: 36.9 Code: 67718-7 Heart Rate 1: 76 bpm Height: 5'4" Respiratory Rate: 20 bpm Temperature: 36 .2 (C) / 97.1 (F) Weight: 215 lbs 08/09/2011 Blood Pressure 1: 112/78 Code: 8480-6 BMI: 36.9 Code: 35950-8 Heart Rate 1: 68 bpm Height: 5'4" Respiratory Rate: 20 bpm Temperature: 36 .7 (C) / 98.0 (F) Weight: 215 lbs 07/03/2011 Blood Pressure 1: 140/94 Code: 8480-6 BMI: 36.2 Code: 25598-1 Heart Rate 1: 68 bpm Height: 5'4" Temperature: 36.0 (C) / 96.8 (F) Weight: 211 lbs 06/04/2011 Blood Pressure 1: 124/70 Code: 8480-6 BMI: 36.7 Code: 60029-7 Heart Rate 1: 68 bpm Height: 5'4" Respiratory Rate: 20 bpm Temperature: 36 .6 (C) / 97.9 (F) Weight: 214 lbs 05/03/2011 Blood Pressure 1: 130/76 Code: 8480-6 BMI: 36.4 Code: 69176-4 Heart Rate 1: 74 bpm Height: 5'5" Temperature: 36.2 (C) / 97.2 (F) Weight: 219 lbs 04/05/2011 Blood Pressure 1: 124/86 Code: 8480-6 BMI: 35.9 Code: 23845-0 Heart Rate 1: 76 bpm Height: 5'6" Respiratory Rate: 22 bpm Temperature: 36 .3 (C) / 97.3 (F) Weight: 219 lbs 03/08/2011 Blood Pressure 1: 112/78 Code: 8480-6 BMI: 35.1 Code: 56723-8 Heart Rate 1: 80 bpm Height: 5'6" Respiratory Rate: 26 bpm Temperature: 36 .9 (C) / 98.4 (F) Weight: 214 lbs 01/24/2011 Blood Pressure 1: 110/82 Code: 8480-6 BMI: 35.6 Code: 18015-3 Heart Rate 1: 80 bpm Height: 5'6" Temperature: 36.1 (C) / 97.0 (F) Weight: 217 lbs 01/02/2011 Blood Pressure 1: 106/72 Code: 8480-6 BMI: 35.6 Code: 79438-1 Heart Rate 1: 76 bpm Height: 5'6" [...] 1: 120/74 Code: 8480-6 BMI: 35.9 Code: 07809-1 Heart Rate 1: 72 bpm Height: 5'5" Temperature: 36.3 (C) / 97.4 (F) Weight: 216 lbs 09/19/2010 Blood Pressure 1: 124/80 Code: 8480-6 BMI: 35.4 Code: 58891-0 Heart Rate 1: 76 bpm Height: 5'5" [...] 1: 122/78 Code: 8480-6 BMI: 37.4 Code: 14294-2 Heart Rate 1: 84 bpm Height: 5'5" Weight: 225 lbs Functional Status No Functional Status data Reason For Visit Reason For Visit Effective Dates Notes back pain 08/25/2019 ~generic 08/10/2019 pt has c/o of excess luisa yawning. Pt states that she goes through [...] follow up 10/26/2015 ER visit from at [facility] for COPD Exacerbation follow up 10/05/2015 ER Visit gait abnormality 09/15/2015 Patient requesting kelly pineda paperwork to be filled out disturbances of thinking 08/24/2015 follow up 07/05/2015 4wk fwup follow up 06/06/2015 [facility] cough 05/23/2015 follow up 05/05/2015 dyspnea 03/30/2015 [facility] needs new orde r for O2 abdominal pain 02/03/2015 cyst 12/29/2014 vs abscess follow up 09/02/2014 [facility] headache 08/25/2014 facial drooping follow up 04/01/2014 ER follow up 03/16/2014 1wk fwup follow up 03/09/2014 1mo fwup and bronchi tis fwup follow up 03/03/2014 2 day follow up 03/01/2014 ER follow up 02/09/2014 [facility] gastroesophageal reflux 12/23/2013 painful urination [...] up 08/04/2012 2wk fwup follow up 07/21/2012 [facility]--[facility] an sore throat 07/02/2012 headache [...] up 10/18/[address] Medrano last w [place], having increased allergy symptoms. Would like [...] Hypoxia[ICD10: R09.02] Diagnosis: Migraine[ICD10: G43.909] Belia MARTINEZ [facility] CPT-4: 78510 08/25/2019 ([id number]) OFFICE/OUTPATIENT VISIT EST Diagnosis: Yawning[ICD10: R06.89] Diagnosis: LION (obstructive sleep apnea)[ICD10: G47.33] Pattie REID DO [facility] CPT-4: 07598 08/10/2019 ([id number]) OFFICE/OUTPATIENT VISIT EST Diagnosis: Pelvic pain in female[ICD10: R10.2] Diagnosis: Left leg swelling[ICD10: M79.89] Diagnosis: Dyspnea[ICD10: R06.00] Diagnosis: Constipation[ICD10: K59.00] Pattie WICK [facility] CPT-4: 91811 08/04/2019 ([id number]) OFFICE/OUTPATIENT VISIT EST Diagnosis: Inspiratory stridor[ICD10: R06.1] Diagnosis: Diarrhea[ICD10: R19.7] [facility]: 9921 3 07/06/2019 ([id number]) OFFICE/OUTPATIENT VISIT EST Diagnosis: Left leg swelling[ICD10: M79.89] Diagnosis: Dyspnea[ICD10: R06.00] [facility]PT[facility]: 9921 3 06/24/2019 ([id number]) OFFICE/OUTPATIENT VISIT EST Diagnosis: Acute bronchitis[ICD10: J20.9] Diagnosis: Colitis[ICD10: K52.9] [facility] CPT-4: 47702 06/16/2019 ([id number]) OFFICE/OUTPATIENT VISIT EST Diagnosis: Diarrhea[ICD10: R19.7] Diagnosis: Abdominal bloating[ICD10: R14.0] Belia Reid [facility] CPT- 4: 00818 06/08/2019 ([id number]) OFFICE/OUTPATIENT VISIT EST Diagnosis: Acute febrile illness[ICD10: R50.9] Diagnosis: Colitis[ICD10: K52.9] Belia Reid [facility] CPT-4: 58002 05/26/2019 ([id number]) OFFICE/OUTPATIENT VISIT EST Diagnosis: Chronic obstructive pulmonary disease, unspecified[ICD10: J44.9] Diagnosis: Pulmonary fibrosis[ICD10: J84.10] Diagnosis: Intermittent stridor[ICD10: R06.1] Diagnosis: Muscle weakness[ICD10: M62.81] Belia HSUQUELINE Bushra Mayda ZACHARYNDOTONIEL [employer] [facility] CPT-4: 57860 05/13/2019 ([id number]) OFFICE/OUTPATIENT VISIT EST Diagnosis: Stridor[ICD10: R06.1] Diagnosis: COUGH[ICD10: R05] Beliahanna BRUNSON BushraMayda LUISER [employer] [facility] CPT-4: 20502 05/06/2019 ([id number]) OFFICE/OUTPATIENT VISIT EST Diagnosis: Stridor[ICD10: R06.1] Diagnosis: Muscle, jerky movements (uncontrolled)[ICD10: G25.5] Belia Zacharynilson BRUNSON BushraMayda LUISER [employer] [facility] CPT-4: 96999 04/29/2019 ([id number]) OFFICE/OUTPATIENT VISIT EST Diagnosis: Upper respiratory infection[ICD10: J06.9] Diagnosis: Flank pain[ICD10: R10.9] Diagnosis: Weight gain[ICD10: R63.5] Pattie Floresjuan BRUNSON BushraMayda ZACHARY NDESudhir [employer] [facility] CPT-4: 24624 04/16/2019 ([id number]) OFFICE/OUTPATIENT VISIT EST Diagnosis: Generalized pruritus[ICD10: L29.9] Belia SALAZAR SMayda ZACHARYNDER [employer] [facility] CPT-4: 37793 04/08/2019 ([id number]) OFFICE/OUTPATIENT VISIT EST Diagnosis: Acute bursitis of left shoulder[ICD10: M75.52] Diagnosis: Cervicalgia[ICD10: M54.2] Diagnosis: Chest wall pain[ICD10: R07.89] Belia BRUNSON Bushra Mayda ANUSHKA [employer] [facility] CPT-4: 96200 01/22/2019 ([id number]) OFFICE/OUTPATIENT VISIT EST Diagnosis: Abdominal pain[ICD10: R10.9] Diagnosis: Pyelonephritis[ICD10: N12] Pattie Nortonarely Shi [facility] CPT-4: 04057 01/07/2019 ([id number]) OFFICE/OUTPATIENT VISIT EST Diagnosis: Low back pain[ICD10: M54.5] Diagnosis: Left lumbar radiculopathy[ICD10: M54.16] Diagnosis: Left flank pain[ICD10: R10.9] Diagnosis: Left lower quadrant pain[ICD10: R10.32] Diagnosis: FLU VACCINE[ICD10: Z23] Belia [facility] CPT-4: 67430 12/24/2018 ([id number]) OFFICE/OUTPATIENT VISIT EST Diagnosis: Migraine, unspecified, not intractable, without status migrainosus[ICD10: G43.909] Diagnosis: Fibromyalgia[ICD10: M79.7] Belia DOMINGUEZ [facility] CPT-4: 63478 11/20/2018 ([id number]) OFFICE/OUTPATIENT VISIT EST Diagnosis: Migraine, unspecified, intractable, without status migrainosus[ICD10: G43.919] Diagnosis: Acute sinusitis, unspecified[ICD10: J01.90] Pattie REID DO [facility] CPT-4: 38753 11/04/2018 ([id number]) OFFICE/OUTPATIENT VISIT EST Diagnosis: Pain in left wrist[ICD10: M25.532] Diagnosis: Other dorsalgia[ICD10: M54.89] Pattie REID DO [facility] CPT-4: 23666 09/08/2018 ([id number]) OFFICE/OUTPATIENT VISIT EST Diagnosis: Acute stress reaction[ICD10: F43.0] Diagnosis: Pruritus, unspecified[ICD10: L29.9] 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, 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] Belia REID [facility] CPT-4: 40140 08/20/2018 ([id number]) OFFICE/OUTPATIENT VISIT EST Diagnosis: Hypotension due to drugs[ICD10: I95.2] Diagnosis: Paroxysmal atrial fibrillation[ICD10: I48.0] Diagnosis: Localized edema[ICD10: R60.0] Belia REID [facility] CPT-4: 64970 06/19/2018 ([id number]) OFFICE/OUTPATIENT VISIT EST Diagnosis: Generalized hyperhidrosis[ICD10: R61] Diagnosis: Essential (primary) hypertension[ICD10: I10] Diagnosis: Supraventricular tachycardia[ICD10: I47.1] Belia REID DO [facility] CPT-4: 21645 06/09/2018 ([id number]) OFFICE/OUTPATIENT VISIT EST Diagnosis: Stridor[ICD10: R06.1] Diagnosis: Dependence on supplemental oxygen[ICD10: Z99.81] Diagnosis: Weakness[ICD10: R53.1] Diagnosis: Supraventricular tachycardia[ICD10: I47.1] Belia [facility] [facility] CPT-4: 58636 05/21/2018 ([id number]) OFFICE/OUTPATIENT VISIT EST Diagnosis: Cervical disc disorder with radiculopathy, unspecified cervical region[ICD10: M50.10] Belia REID [facility] CPT-4: 33570 04/16/2018 ([id number]) OFFICE/OUTPATIENT VISIT EST Diagnosis: Migraine, unspecified, intractable, without status migrainosus[ICD10: G43.919] Diagnosis: Fibromyalgia[ICD10: M79.7] Pattie DOMINGUEZ [facility] CPT-4: 13954 04/01/2018 ([id number]) NURSE/OUTPATIENT VISIT EST Diagnosis: Hematuria, unspecified[ICD10: R31.9] Diagnosis: Dysuria[ICD10: R30.0] Belia REID [facility] CPT-4: 50139 03/17/2018 ([id number]) OFFICE/OUTPATIENT VISIT EST Diagnosis: Erythema intertrigo[ICD10: L30.4] Diagnosis: Chronic obstructive pulmonary disease with (acute) exacerbation[ICD10: J44.1] Diagnosis: Type 2 diabetes mellitus with hyperglycemia[ICD10: E11.65] Belia REID DO [facility] CPT-4: 49715 03/06/2018 ([id number]) OFFICE/OUTPATIENT VISIT EST Diagnosis: Cervicalgia[ICD10: M54.2] Pattiekedar AMBRIZ [facility] CPT-4: 71111 02/05/2018 ([id number]) OFFICE/OUTPATIENT VISIT EST Diagnosis: Candidiasis of skin and nail[ICD10: B37.2] Diagnosis: Cervicalgia[ICD10: M54.2] Pattie AMBRIZ [facility] CPT-4: 41725 01/20/2018 ([id number]) OFFICE/OUTPATIENT VISIT EST Diagnosis: Pain in thoracic spine[ICD10: M54.6] Diagnosis: Radiculopathy, thoracic region[ICD10: M54.14] Belia REID [facility] CPT-4: 04093 12/25/2017 ([id number]) OFFICE/OUTPATIENT VISIT EST Diagnosis: Pain in thoracic spine[ICD10: M54.6] Diagnosis: Other muscle spasm[ICD10: M62.838] Diagnosis: FLU VACCINE[ICD10: Z23] Diagnosis: PNEUMOCOCCAL VACCINE[ICD10: Z23] Belia REID [facility] CPT-4: 58563 12/17/2017 ([id number]) OFFICE/OUTPATIENT VISIT EST Diagnosis: Chronic obstructive pulmonary disease with (acute) exacerbation[ICD10: J44.1] Belia REID [facility] CPT- 4: 37238 10/30/2017 ([id number]) OFFICE/OUTPATIENT VISIT EST Diagnosis: Chronic obstructive pulmonary disease with acute lower respiratory infection[ICD10: J44.0] Diagnosis: Mild intermittent asthma with (acute) exacerbation[ICD10: J45.21] Belia REID [facility] CPT-4: 42298 10/23/2017 ([id number]) NURSE/OUTPATIENT VISIT EST Diagnosis: Migraine, unspecified, not intractable, without status migrainosus[ICD10: G43.909] Belia REID [facility] CPT - 4: 78902 08/26/2017 ([id number]) OFFICE/OUTPATIENT VISIT EST Diagnosis: Urinary tract infection, site not specified[ICD10: N39.0] Diagnosis: Encounter for screening for osteoporosis[ICD10: Z13.820] Diagnosis: Encounter for screening mammogram for malignant neoplasm of breast[ICD10: Z12.31] Diagnosis: Acute bronchitis, unspecified[ICD10: J20.9] Pattie REID DO [facility] CPT-4: 38408 07/19/2017 ([id number]) OFFICE/OUTPATIENT VISIT EST Diagnosis: Rash and other nonspecific skin eruption[ICD10: R21] Pattie REID DO [facility] CPT-4: 69399 05/29/2017 ([id number]) OFFICE/OUTPATIENT VISIT EST Diagnosis: Diarrhea, unspecified[ICD10: R19.7] Diagnosis: Tinea corporis[ICD10: B35.4] Diagnosis: Tinea cruris[ICD10: B35.6] Diagnosis: Migraine, unspecified, not intractable, without status migrainosus[ICD10: G43.909] Belia REID DO [facility] CPT - 4: 17495 05/07/2017 ([id number]) OFFICE/OUTPATIENT VISIT EST Diagnosis: Stridor[ICD10: R06.1] Diagnosis: Chronic obstructive pulmonary disease with (acute) exacerbation[ICD10: J44.1] Belia REID DO [facility] CPT- 4: 50143 03/18/2017 ([id number]) OFFICE/OUTPATIENT VISIT EST Diagnosis: Type 2 diabetes mellitus with hyperglycemia[ICD10: E11.65] Belia REID DO [facility] CPT-4: 76936 02/27/2017 OFFICE/OUTPATIENT VISIT EST Diagnosis: Type 2 diabetes mellitus with hyperglycemia[ICD10: E11.65] Pattie REID DO [facility] CPT-4: 64667 02/22/2017 ([id number]) OFFICE/OUTPATIENT VISIT EST Diagnosis: Urinary tract infection, site not specified[ICD10: N39.0] Diagnosis: Pneumonia, unspecified organism[ICD10: J18.9] Diagnosis: Type 2 diabetes mellitus with hyperglycemia[ICD10: E11.65] Belia REID DO [facility] CPT-4: 39619 01/23/2017 ([id number]) OFFICE/OUTPATIENT VISIT EST Diagnosis: Type 2 diabetes mellitus with hyperglycemia[ICD10: E11.65] Diagnosis: Localized edema[ICD10: R60.0] Diagnosis: PNEUMOCOCCAL VACCINE[ICD10: Z23] Diagnosis: FLU VACCINE[ICD10: Z23] Belia FREDERICK DO [facility] CPT-4: 84202 12/20/2016 OFFICE/OUTPATIENT VISIT EST Diagnosis: Pain in thoracic spine[ICD10: M54.6] Diagnosis: Low back pain[ICD10: M54.5] Diagnosis: Cervicalgia[ICD10: M54.2] Diagnosis: Cough[ICD10: R05] Celeste Hanna BELIA REID [facility] CPT-4: 79387 10/08/2016 ([id number]) OFFICE/OUTPATIENT VISIT EST Diagnosis: Primary insomnia[ICD10: F51.01] Diagnosis: Migraine, unspecified, not intractable, without status migrainosus[ICD10: G43.909] Diagnosis: Type 2 diabetes mellitus with hyperglycemia[ICD10: E11.65] Belia REID [facility] CPT-4: 03737 09/19/2016 ([id number]) OFFICE/OUTPATIENT VISIT EST Diagnosis: Migraine, unspecified, not intractable, without status migrainosus[ICD10: G43.909] Diagnosis: Generalized abdominal pain[ICD10: R10.84] Diagnosis: Cough[ICD10: R05] Belia REID [facility] CPT-4: 90078 08/20/2016 ([id number]) OFFICE/OUTPATIENT VISIT EST Diagnosis: Chronic obstructive pulmonary disease, unspecified[ICD10: J44.9] Diagnosis: Stridor[ICD10: R06.1] Belia REID [facility] CPT-4: 82645 06/19/2016 ([id number]) OFFICE/OUTPATIENT VISIT EST Diagnosis: Chronic obstructive pulmonary disease, unspecified[ICD10: J44.9] Diagnosis: Personal history of urinary (tract) infections[ICD10: Z87.440] Belia REID [facility] CPT-4: 89297 06/04/2016 ([id number]) OFFICE/OUTPATIENT VISIT EST Diagnosis: Stridor[ICD10: R06.1] Diagnosis: Chronic obstructive pulmonary disease with acute lower respiratory infection[ICD10: J44.0] Diagnosis: Other specified diseases of intestine[ICD10: K63.89] Diagnosis: Cystitis, unspecified without hematuria[ICD10: N30.90] Belia REID DO [facility] CPT-4: 18064 05/02/2016 ([id number]) OFFICE/OUTPATIENT VISIT EST Diagnosis: Fibromyalgia[ICD10: M79.7] Diagnosis: Urinary tract infection, site not specified[ICD10: N39.0] Belia REID DO [facility] CPT-4: 86791 04/03/2016 ([id number]) OFFICE/OUTPATIENT VISIT EST Diagnosis: Unspecified asthma, uncomplicated[ICD10: J45.909] Diagnosis: Cough[ICD10: R05] Lidia REID [employer] [facility] T-4: 42652 02/29/2016 ([id number]) OFFICE/OUTPATIENT VISIT EST Diagnosis: Migraine, unspecified, intractable, without status migrainosus[ICD10: G43.919] Diagnosis: Urinary tract infection, site not specified[ICD10: N39.0] Belia REID [employer] [facility] CPT-4: 64237 02/02/2016 ([id number]) OFFICE/OUTPATIENT VISIT EST Diagnosis: Urinary tract infection, site not specified[ICD10: N39.0] Diagnosis: Unspecified abdominal pain[ICD10: R10.9] Diagnosis: Pain in thoracic spine[ICD10: M54.6] Diagnosis: Type 2 diabetes mellitus with diabetic neuropathic arthropathy[ICD10: E11.610] Belia REID [employer] [facility] CPT-4: 42261 12/05/2015 ([id number]) OFFICE/OUTPATIENT VISIT EST Diagnosis: Chronic obstructive pulmonary disease with (acute) exacerbation[ICD10: J44.1] Diagnosis: Migraine, unspecified, not intractable, without status migrainosus[ICD10: G43.909] Lidia REID [employer] [facility] CPT -4: 59789 10/26/2015 ([id number]) OFFICE/OUTPATIENT VISIT EST Diagnosis: Hematuria, unspecified[ICD10: R31.9] Diagnosis: Urinary tract infection, site not specified[ICD10: N39.0] Lidia HSUQUELINE BushraMayda ANUSHKA [employer] [facility] CPT-4: 00028 10/05/2015 OFFICE/OUTPATIENT VISIT EST Diagnosis: Chronic obstructive pulmonary disease, unspecified[ICD10: J44.9] Diagnosis: Muscle weakness (generalized)[ICD10: M62.81] Diagnosis: Polyneuropathy, unspecified[ICD10: G62.9] Diagnosis: Other intervertebral disc degeneration, 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] Diagnosis: Fibromyalgia[ICD10: M79.7] Belia Anushka BELIA Yuridia DOMINGUEZ [employer] [facility] CPT-4: 53279 09/15/2015 ([id number]) OFFICE/OUTPATIENT VISIT EST Diagnosis: Disorientation, unspecified[ICD10: R41.0] Diagnosis: Headache[ICD10: R51] Diagnosis: Paresthesia of skin[ICD10: R20.2] Lidianick Hwang KOFFI Paredes BushraMayda ANUSHKA [employer] [facility] CPT-4: 97975 08/24/2015 ([id number]) OFFICE/OUTPATIENT VISIT EST Diagnosis: Type 2 diabetes mellitus with hyperglycemia[ICD10: E11.65] Diagnosis: Chronic obstructive pulmonary disease with acute lower respiratory infection[ICD10: J44.0] Belia Zacharybeckyotoniel CORNELLBELIA BushraMayda ANUSHKA [employer] [facility] CPT-4: 12102 07/05/2015 ([id number]) OFFICE/OUTPATIENT VISIT EST Diagnosis: Mild intermittent asthma with (acute) exacerbation[ICD10: J45.21] Diagnosis: Chronic obstructive pulmonary disease, unspecified[ICD10: J44.9] Belia Zacharybeckyotoniel BELIA BushraMayda ANUSHKA [employer] [facility] CPT-4: 27014 06/06/2015 ([id number]) OFFICE/OUTPATIENT VISIT EST Diagnosis: Chronic obstructive pulmonary disease with (acute) exacerbation[ICD10: J44.1] Lidia Jaiden BELIA BushraMayda ANUSHKA [employer] [facility] CPT- 4: 91058 05/23/2015 ([id number]) OFFICE/OUTPATIENT VISIT EST Diagnosis: Type 2 diabetes mellitus with hyperglycemia[ICD10: E11.65] Diagnosis: Functional dyspepsia[ICD10: K30] Belia BRUNSON [facility] CPT-4: 48713 05/05/2015 ([id number]) OFFICE/OUTPATIENT VISIT EST Diagnosis: Type 2 diabetes mellitus with hyperglycemia[ICD10: E11.65] Diagnosis: Glycosuria[ICD10: R81] Diagnosis: Urinary tract infection, site not specified[ICD10: N39.0] Belia [facility] CPT-4: 06749 03/30/2015 ([id number]) OFFICE/OUTPATIENT VISIT EST Diagnosis: Generalized abdominal pain[ICD10: R10.84] Diagnosis: Diarrhea, unspecified[ICD10: R19.7] Diagnosis: Urinary tract infection, site not specified[ICD10: N39.0] Diagnosis: Gastro-esophageal reflux disease without esophagitis[ICD10: K21.9] Belia [facility] CPT-4: 15161 02/03/2015 ([id number]) OFFICE/OUTPATIENT VISIT EST Diagnosis: Other specified noninflammatory disorders of vagina[ICD10: N89.8] Diagnosis: Follicular disorder, unspecified[ICD10: L73.9] Diagnosis: Functional dyspepsia[ICD10: K30] Diagnosis: FLU VACCINE[ICD10: Z23] Belia Shi [facility] CPT-4: 40440 12/29/2014 ([id number]) OFFICE/OUTPATIENT VISIT EST 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] Diagnosis: RESTLESS LEGS SYNDROME[ICD9: 333.94] Diagnosis: MIGRAINE NOS/NOT INTRCBL[ICD9: 346.90] Beliahanna Shi [facility] CPT-4: 85200 09/02/2014 ([id number]) OFFICE/OUTPATIENT VISIT EST Diagnosis: Cervical radiculopathy[ICD9: 723.4] Diagnosis: Cervicalgia[ICD9: 723.1] Diagnosis: Degenerative disc disease, cervical[ICD9: 722.4] 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I[ICD9: 250.00] Beliahanna [facility] CPT-4: 99708 04/01/2014 OFFICE/OUTPATIENT VISIT EST Diagnosis: Reactive airway disease[ICD9: 493.90] Belia REID DO [facility] CPT-4: 45339 03/16/2014 ([id number]) OFFICE/OUTPATIENT VISIT EST Diagnosis: BRONCHITIS, ACUTE[ICD9: 466.0] Diagnosis: Reactive airway disease[ICD9: 493.90] Belia REID DO [facility] CPT-4: 04895 03/09/2014 OFFICE/OUTPATIENT VISIT EST Diagnosis: BRONCHITIS, ACUTE[ICD9: 466.0] Diagnosis: WHEEZING[ICD9: 786.07] Huong Peguero [facility] CPT-4: 09543 03/03/2014 OFFICE/OUTPATIENT VISIT EST Diagnosis: BRONCHITIS, ACUTE[ICD9: 466.0] Diagnosis: WHEEZING[ICD9: 786.07] Huong Peguero [facility] CPT-4: 97044 03/01/2014 ([id number]) OFFICE/OUTPATIENT VISIT EST Diagnosis: GERD[ICD9: 530.81] Diagnosis: ARTHRALGIA-MULTIPLE SITES[ICD9: 719.49] Diagnosis: LUMB/LUMBOSAC DISC DEGEN[ICD9: 722.52] Diagnosis: - I - FIBROMYALGIA[ICD9: 729.1] Belia CORNELLLINE Yuridia REID [facility] CPT-4: 76479 02/09/2014 ([id number]) OFFICE/OUTPATIENT VISIT EST Diagnosis: Peptic ulcer disease[ICD9: 533.90] Diagnosis: RESTLESS LEGS SYNDROME[ICD9: 333.94] Diagnosis: Neuropathy[ICD9: 355.9] Belia CORNELLLINE Yuridia FREDERICK [facility] CPT-4: 66100 12/23/2013 ([id number]) OFFICE/OUTPATIENT VISIT EST Diagnosis: URINARY TRACT INFECTION[ICD9: 599.0] Belia Zacharynilson HSUQUE CLAYTON BushraMayda ANUSHKA [facility] CPT-4: 64734 10/30/2013 ([id number]) OFFICE/OUTPATIENT VISIT EST Diagnosis: Flank pain[ICD9: 789.00] Belia BRUNSON BushraMayda KIESHA VIRGLIIO [facility] CPT-4: 09043 10/21/2013 ([id number]) OFFICE/OUTPATIENT VISIT EST Diagnosis: INFLAMED SEBORR KERATOS[ICD9: 702.11] Diagnosis: Brachioradial pruritus[ICD9: 698.9] Diagnosis: ASTHMA NOS[ICD9: 493.90] Belia BRUNSON BushraMayda KIESHA [facility] CPT-4: 49216 10/05/2013 ([id number]) OFFICE/OUTPATIENT VISIT EST Diagnosis: HYPERTENSION[ICD9: 401.9] Diagnosis: - I - FIBROMYALGIA[ICD9: 729.1] Diagnosis: DIZZINESS/VERTIGO[ICD9: 780.4] Diagnosis: MIGRAINE NOS/NOT INTRCBL[ICD9: 346.90] Diagnosis: Diabetic peripheral neuropathy[ICD9: 250.60] Diagnosis: Flank pain[ICD9: 789.00] Belia Shi KIESHA [facility] CPT-4: 79354 08/04/2013 ([id number]) OFFICE/OUTPATIENT VISIT EST Diagnosis: ALLERGIC RHINITIS[ICD9: 477.9] Belia Ohara [facility] CPT-4: 65257 07/13/2013 OFFICE/OUTPATIENT VISIT EST Diagnosis: URINARY TRACT INFECTION[ICD9: 599.0] [facility]: 25804 07/03/2013 OFFICE/OUTPATIENT VISIT EST Diagnosis: HYPERTENSION[ICD9: 401.9] Diagnosis: URINARY TRACT INFECTION[ICD9: 599.0] Diagnosis: BACKACHE[ICD9: 724.5] Diagnosis: URINARY INCONTINENCE[ICD9: 788.30] Huong Shi [facility] CPT-4: 95050 05/27/2013 ([id number]) OFFICE/OUTPATIENT VISIT EST Diagnosis: Flank pain[ICD9: 789.00] Belia Shi KIESHA [facility] CPT-4: 58697 05/25/2013 ([id number]) OFFICE/OUTPATIENT VISIT EST Diagnosis: B-COMPLEX DEFIC NEC[ICD9: 266.2] [facility] CPT-[facility]: 56634 05/04/2013 ([id number]) OFFICE/OUTPATIENT VISIT EST Diagnosis: ALLERGIC RHINITIS[ICD9: 477.9] Diagnosis: Vitamin B12 deficiency[ICD9: 266.2] Belia Humphriesbeckyotoniel HSUROBERTOFelicita DONNA Yuridia REID [facility] CPT-4: 77004 04/17/2013 ([id number]) OFFICE/OUTPATIENT VISIT EST 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I[ICD9: 250.00] Diagnosis: URINARY TRACT INFECTION[ICD9: 599.0] Diagnosis: DIZZINESS/VERTIGO[ICD9: 780.4] Diagnosis: DIARRHEA[ICD9: 787.91] Belia Humphriesnilson BRUNSON BushraMayda RALF Peguero [facility] CPT-4: 22987 04/06/2013 ([id number]) OFFICE/OUTPATIENT VISIT EST Diagnosis: URINARY TRACT INFECTION[ICD9: 599.0] Diagnosis: URINARY RETENTION[ICD9: 788.20] Belia Zacharybeckyotoniel HSUBELIA BushraMayda ANUSHKA [facility] CPT-4: 15854 11/10/2012 ([id number]) OFFICE/OUTPATIENT VISIT EST Diagnosis: TACHYCARDIA[ICD9: 785.0] Diagnosis: SYNCOPE AND COLLAPSE[ICD9: 780.2] Diagnosis: CONSCIOUSNS ALTERAT NEC[ICD9: 780.09] Belia HSUPAUL LUBNA BushraMayda ANUSHKA [facility] CPT-4: 67779 09/02/2012 OFFICE/OUTPATIENT VISIT EST Diagnosis: TACHYCARDIA[ICD9: 785.0] Diagnosis: SYNCOPE AND COLLAPSE[ICD9: 780.2] Belia Zacharynilson Paredes BushraMayda ANUSHKA [facility] CPT-4: 09635 08/04/2012 ([id number]) OFFICE/OUTPATIENT VISIT EST Diagnosis: Loss of consciousness[ICD9: 780.09] Diagnosis: Tachycardia[ICD9: 785.0] Diagnosis: MALAISE AND FATIGUE[ICD9: 780.79] Belia Zacharynilson Paredes BushraMayda ANUSHKA [facility] CPT-4: 18824 07/21/2012 ([id number]) OFFICE/OUTPATIENT VISIT EST Diagnosis: BRONCHITIS, ACUTE[ICD9: 466.0] Diagnosis: ASTHMA NOS[ICD9: 493.90] Belia BRUNSON BushraMayda KIESHARegino POOLE [facility] CPT-4: 28573 07/02/2012 ([id number]) OFFICE/OUTPATIENT VISIT EST Diagnosis: CEPHALGIA[ICD9: 784.0] Belia CORNELLLINE BushraMayda RALF Peguero [employer] CPT-4: 53561 06/25/2012 ([id number]) OFFICE/OUTPATIENT VISIT EST Diagnosis: GERD[ICD9: 530.81] Diagnosis: DIARRHEA[ICD9: 787.91] Diagnosis: URINARY TRACT INFECTION[ICD9: 599.0] Diagnosis: ASTHMA NOS[ICD9: 493.90] Diagnosis: ALLERGIC RHINITIS[ICD9: 477.9] Belia CORNELLLINE Bushra Mayda ANUSHKA [employer] [facility] CPT-4: 74986 06/24/2012 ([id number]) OFFICE/OUTPATIENT VISIT EST Diagnosis: MIGRAINE NOS/NOT INTRCBL[ICD9: 346.90] Diagnosis: TREMOR NEC[ICD9: 333.1] Diagnosis: CHRONIC PAIN SYNDROME[ICD9: 338.4] Belia BASS MARIE BusrhaMayda ANUSHKA [employer] [facility] CPT-4: 35168 05/20/2012 ([id number]) OFFICE/OUTPATIENT VISIT EST Diagnosis: DIZZINESS/VERTIGO[ICD9: 780.4] Diagnosis: PALPITATIONS[ICD9: 785.1] Diagnosis: TREMOR NEC[ICD9: 333.1] Diagnosis: ANXIETY STATE NOS[ICD9: 300.00] Diagnosis: POSTTRAUMATIC STRESS DISORDER[ICD9: 309.81] Belia CORNELLLINE BushraMayda ANUSHKA [employer] CPT-4: 31355 05/08/2012 ([id number]) OFFICE/OUTPATIENT VISIT EST Diagnosis: MIGRAINE NOS/NOT INTRCBL[ICD9: 346.90] Diagnosis: FIBROMYALGIA[ICD9: 729.1] Diagnosis: SYNCOPE AND COLLAPSE[ICD9: 780.2] Diagnosis: Diabetic peripheral neuropathy[ICD9: 250.60] Belia CORNELLLINE BushraMayda ANUSHKA [employer] [facility] CPT-4: 53921 04/22/2012 OFFICE/OUTPATIENT VISIT EST Diagnosis: ROTATOR CUFF DIS NEC[ICD9: 726.19] Diagnosis: JOINT PAIN-SHLDER[ICD9: 719.41] Diagnosis: DYSPEPSIA[ICD9: 536.8] Belia Zachayrnilson BELIA BushraMayda RALF [employer] CPT-4: 76570 02/13/2012 ([id number]) OFFICE/OUTPATIENT VISIT EST Diagnosis: MIGRAINE NOS/NOT INTRCBL[ICD9: 346.90] Diagnosis: GERD[ICD9: 530.81] Diagnosis: DYSPEPSIA[ICD9: 536.8] Belia Peguero [facility] CPT-4: 95567 01/28/2012 OFFICE/OUTPATIENT VISIT EST Diagnosis: CEPHALGIA[ICD9: 784.0] Diagnosis: MIGRAINE NOS/NOT INTRCBL[ICD9: 346.90] Diagnosis: GERD[ICD9: 530.81] Diagnosis: INSOMNIA NOS[ICD9: 780.52] Belia HSUQUELINE Yuridia DOMINGUEZ [facility] CPT-4: 00011 12/26/2011 ([id number]) OFFICE/OUTPATIENT VISIT EST Diagnosis: CEPHALGIA[ICD9: 784.0] Diagnosis: MIGRAINE NOS/NOT INTRCBL[ICD9: 346.90] Diagnosis: MALAISE AND FATIGUE[ICD9: 780.79] Diagnosis: FIBROMYALGIA[ICD9: 729.1] Diagnosis: ALLERGIC RHINITIS[ICD9: 477.9] Belia CORNELLLINE Bushra Mayda ANUSHKA [facility] CPT-4: 22980 11/14/2011 ([id number]) OFFICE/OUTPATIENT VISIT EST Diagnosis: MALAISE AND FATIGUE[ICD9: 780.79] Diagnosis: MUSCLE WEAKNESS-GENERAL[ICD9: 728.87] Diagnosis: MIGRAINE NOS/NOT INTRCBL[ICD9: 346.90] Diagnosis: JOINT PAIN-SHLDER[ICD9: 719.41] Belia Zacharybeckyotoniel HSUBELIA BushraMayda ANUSHKA [facility] CPT-4: 43212 09/12/2011 ([id number]) OFFICE/OUTPATIENT VISIT EST Diagnosis: CONCUSSION[ICD9: 850.9] Diagnosis: Ataxia[ICD9: 781.3] Diagnosis: DIZZINESS/VERTIGO[ICD9: 780.4] Beliahanna CORNELLLINE Bushra Mayda ANUSHKA [facility] CPT-4: 95364 08/15/2011 ([id number]) OFFICE/OUTPATIENT VISIT EST Diagnosis: THROMBOPHLEBITIS[ICD9: 451.9] Diagnosis: Subacromial bursitis[ICD9: 726.19] Diagnosis: ALLERGIC RHINITIS[ICD9: 477.9] Diagnosis: Lipoma[ICD9: 214.9] Belia REID [facility] CPT-4: 25950 08/09/2011 ([id number]) OFFICE/OUTPATIENT VISIT EST Diagnosis: THROMBOPHLEBITIS[ICD9: 451.9] Diagnosis: Arm pain[ICD9: 729.5] Diagnosis: Clostridium difficile colitis[ICD9: 008.45] Diagnosis: URINARY TRACT INFECTION[ICD9: 599.0] [facility]: 69193 07/03/2011 ([id number]) OFFICE/OUTPATIENT VISIT EST Diagnosis: ARTHRALGIA-MULTIPLE SITES[ICD9: 719.49] Diagnosis: Muscle cramp[ICD9: 729.82] Diagnosis: INSOMNIA NOS[ICD9: 780.52] [facility] CPT-4: 78519 06/04/2011 OFFICE/OUTPATIENT VISIT EST Diagnosis: Headache[ICD9: 784.0] Diagnosis: Allergic rhinitis[ICD9: 477.9] Belia [facility] CPT-4: 30239 05/03/2011 OFFICE/OUTPATIENT VISIT EST Diagnosis: LUMB/LUMBOSAC DISC DEGEN[ICD9: 722.52] Diagnosis: MIGRAINE NOS/NOT INTRCBL[ICD9: 346.90] Diagnosis: CHRONIC PAIN SYNDROME[ICD9: 338.4] Diagnosis: RESTLESS LEGS SYNDROME[ICD9: 333.94] Belia [facility] CPT-4: 49442 04/05/2011 OFFICE/OUTPATIENT VISIT EST Diagnosis: MIGRAINE NOS/NOT INTRCBL[ICD9: 346.90] Diagnosis: GERD[ICD9: 530.81] Belia [facility] CPT-4: 79323 03/08/2011 OFFICE/OUTPATIENT VISIT EST Diagnosis: URINARY TRACT INFECTION[ICD9: 599.0] Diagnosis: Vertigo[ICD9: 780.4] Diagnosis: GERD[ICD9: 530.81] Belia [facility] CPT-4: 72049 01/24/2011 OFFICE/OUTPATIENT VISIT EST Diagnosis: Hypotension[ICD9: 458.9] Diagnosis: Syncopal episodes[ICD9: 780.2] Diagnosis: MIGRAINE NOS/NOT INTRCBL[ICD9: 346.90] Diagnosis: MALAISE AND FATIGUE[ICD9: 780.79] Belia Shi ZACHARYNDER [facility] CPT-4: 42806 01/02/2011 OFFICE/OUTPATIENT VISIT EST Diagnosis: Tinea cruris[ICD9: 110.3] Diagnosis: Intertrigo[ICD9: 695.89] Diagnosis: MIGRAINE NOS/NOT INTRCBL[ICD9: 346.90] Belia COKER SMayda ZACHARYNDER [facility] CPT-4: 33353 12/07/2010 OFFICE/OUTPATIENT VISIT EST Diagnosis: PALPITATIONS[ICD9: 785.1] Diagnosis: ANXIETY STATE NOS[ICD9: 300.00] Belia Shi ZACHARYNDER [facility] CPT-4: 56156 11/16/2010 OFFICE/OUTPATIENT VISIT EST Diagnosis: URINARY TRACT INFECTION[ICD9: 599.0] Diagnosis: MIGRAINE NOS/NOT INTRCBL[ICD9: 346.90] Iraida CKOER SMayda ZACHARYNDER DO [facility] CPT-4: 61658 11/02/2010 OFFICE/OUTPATIENT VISIT EST Diagnosis: ALLERGIC RHINITIS[ICD9: 477.9] Diagnosis: ANXIETY STATE NOS[ICD9: 300.00] Belia Shi ZACHARYNDER DO [facility] CPT-4: 44089 10/18/2010 OFFICE/OUTPATIENT VISIT EST Belia HUMPHRIES NDER DO [facility] CPT- 4: 77613 09/19/2010 OFFICE/OUTPATIENT VISIT EST Belia HUMPHRIES NDER DO [facility] CPT- 4: 19302 09/06/2010 ([id number]) OFFICE/OUTPATIENT VISIT EST Belia COKER SMayda ORENDER DO [facility] CPT-4: 53635 08/10/2010 ([id number]) OFFICE/OUTPATIENT VISIT EST Belia COKER SMayda ORENDER DO [facility] CPT-4: 16046 05/11/2010 ([id number]) OFFICE/OUTPATIENT VISIT, [facility] CPT-4: 87907 04/06/2010 ([id number]) OFFICE/OUTPATIENT VISIT, [facility] CPT-4: 73960 02/09/2010 ([id number]) OFFICE/OUTPATIENT VISIT, [facility] CPT-4: 08423 01/05/2010 ([id number]) OFFICE/OUTPATIENT VISIT, EST [facility]ia [facility] CPT-4: 36750 12/07/2009 ([id number]) OFFICE/OUTPATIENT VISIT, EST [facility] CPT-4: 90786 11/08/2009 ([id number]) OFFICE/OUTPATIENT VISIT, EST [facility] CPT-4: 63425 10/24/2009 ([id number]) OFFICE/OUTPATIENT VISIT, [facility] CPT-4: 52757 07/25/2009 ([id number]) OFFICE/OUTPATIENT VISIT, [facility] CPT-4: 35403 05/26/2009 Plan of Care Planned Activity Notes [...] R09.02 08/25/2019 Patient Education: meloxicam- [employer] Coupon [id number] https://www.[employer].Jacked/sampleInnova/resources/getResource/61/[email or web address]-4180-f3 Completed 08/25/2019 Patient Education: baclofen- [employer] Coupon [id number] https://www.[employer]/sampleInnova/resources/getResource/61/h39a192j-9f0e-96g4-fd Completed 08/25/2019 Visit Diagnosis Plan: Yawning Discussion: [...] new home sleep study on patient through [place] to assess severity of symptoms, patient does wear her oxygen at night though. educated on importance of wearing oxygen at all times, even when in public. ICD-9 : 786.09 ICD-10 : R06.89 08/10/2019 Appointment: Pattie Sotomayor [address] [place] [address] ACUTE ILLNESS 08/10/2019 Visit Diagnosis Plan: Left [...] ICD-10 : R10.2 08/04/2019 Appointment: Pattie Sotomayor [address] [place] [address] ACUTE ILLNESS 08/04/2019 Visit Diagnosis Plan: Inspiratory stridor Discussion: Continue oxygen via [place] at 2 L Continue ativan at QID Follow Up: 4 weeks ICD-9 : 786.1 ICD-10 : R06.1 07/06/2019 Visit Diagnosis Plan: Diarrhea Discussion: Restart Col estid at once daily ICD-9 : 787.91 ICD-10 : R19.7 07/06/2019 Appointment: Belia Reid WPtel: [facility] [address] TELEMEDICINE 07/06/2019 Visit Diagnosis Plan: Left [...] R06.00 06/24/2019 Appointment: Belia Reid WPtel: [phone] TELEMEDICINE 06/24/2019 Visit Diagnosis Plan: Colitis Discussion: Levaquin/Fla gyl Bee Diet ICD-9 : 558.9 ICD-10 : K52.9 06/16/2019 Visit Diagnosis Plan: Acute bronchitis Discussion: Cov er with levaquin Increase SVNs with albuterol to QID Has oxygen using q HS routinely and prn To ER if oxygen levels drop or worsening respiratory symptoms ICD-9 : 466.0 ICD-10 : J20.9 06/16/2019 Appointment: Belia Reid WPtel: [address] [place] [address] TELEMEDICINE 06/16/2019 Patient Education: Levaquin- OptimizeRX Coupon [phone] https://www.[employer]/resources/getResource/61/[email or web address] Completed 06/16/2019 Visit Diagnosis Plan: Diarrhea Discussion: Vancomycin for 10 days and notify if not improving or worsening BLAND diet Hydrate ICD-9 : 787.91 ICD-10 : R19.7 06/08/2019 Appointment: Belia Reid WPtel: [address] [place] [address] TELEMEDICINE 06/08/2019 Visit Diagnosis Plan: Colitis Discussion: Flagyl plus cipro to cover for both colitis and UTI Notify or to ER if worsening ICD-9 : 558.9 ICD-10 : K52.9 05/26/2019 Visit Diagnosis Plan: Acute febrile illness Discussion : Notify if worsens ICD-9 : 780.60 ICD-10 : R50.9 05/26/2019 Appointment: Belia Reid WPtel: [address] [place] [address] TELEMEDICINE 05/26/2019 Appointment: Pattie Sotomayor [address] [place] [address] RESCHEDULED 05/18/2019 Visit Diagnosis Plan: Chronic obstructive pulmonary di sease, unspecified Discussion: Recommend pulmonary rehab Patient states she never went to pulmonary rehab due to cost as well as transportation issues Finish trelagy Stop singulair Decrease hydroxyzine to 25mg po q HS Fwup [address] scan of Chest results discussed ICD-9 : 496 ICD-10 : J44.9 05/13/2019 Appointment: Belia Reid WPtel: [address] [place], [place] [address] Hospital Follow Up 05/13/2019 Visit Diagnosis Plan: COUGH Discussion: Check CT scan of chest ICD-9 : 786.2 ICD-10 : R05 05/06/2019 Visit Diagnosis Plan: Stridor Discussion: Add Trelagy 1 p daily Add Singulair May need to see new briefcase sewer ICD-9 : 786.1 ICD-10 : R06.1 05/06/2019 Appointment: Belia Reid WPtel: [address] [place], [place] [phone] FOLLOW UP 05/06/2019 Patient Education: Singulair- OptimizeRX [place] [phone] https://www.[employer]/resources/getResource/61/[email or web address] Completed 05/06/2019 Appointment: Belia Reid WPtel: [address] [place], [place] [phone] [place] RESCHEDULED 04/30/2019 Visit Diagnosis Plan: Stridor [...] : G25.5 04/29/2019 Appointment: Belia Reid WPtel: [address] [place], [place] [phone] Hospital Follow Up 04/29/2019 Patient Education: Valium- OptimizeRX Coupon [id number] https://www.[employer]/samplemd/resources/getResource/61/[email or web address] Completed 04/29/2019 Visit Diagnosis Plan: Flank pain [...] ICD-10 : R63.5 04/16/2019 Appointment: Pattie Sotomayor [address] [place] [address] ACUTE ILLNESS 04/16/2019 Patient Education: cyclobenzaprine- OptimizeRX Coupon [phone] https://www.[employer]/resources/getResource/61/[email or web address]-n9 Completed 04/16/2019 Visit Diagnosis Plan: Migraine, unspecif ied, not intractable, without status migrainosus Discussion: Increase gabapentin to 600mg po BID ICD-9 : 346.90 ICD-10 : G43.909 04/08/2019 Visit Diagnosis Plan: Generalized pruritus Discussion: Hydroxyzine 25mg po TID for itching and anxiety ICD-9 : 698.9 ICD-10 : L29.9 04/08/2019 Appointment: Belia Reid WPtel: [address] [place] [address] ACUTE ILLNESS 04/08/2019 Visit Diagnosis Plan: Cervicalgia [...] : M75.52 01/22/2019 Appointment: Belia Reid WPtel: [facility] [address] Hospital Follow Up 01/22/2019 Visit Diagnosis Plan: Abdominal pain Discussion: urine culture sent to assess for any infection. rocephin given in office to cover for pyelonephritis. instructed to push fluids. call office with any new or worsening symptoms. ICD-9 : 789.00 ICD-10 : R10.9 01/07/2019 Appointment: Pattie Sotomayor [address] [place] [address] ACUTE ILLNESS 01/07/2019 Visit Diagnosis Plan: Low back pain Discussion: Stat C T of abdomen/pelvis now ICD-9 : 724.2 ICD-10 : M54.5 12/24/2018 Appointment: Belia Reid WPtel: [address] [place] [address] FOLLOW UP 12/24/2018 Visit Diagnosis Plan: Migraine, [...] : M79.7 11/20/2018 Appointment: Belia Reid WPtel: [address] [place] [address] ACUTE ILLNESS 11/20/2018 Patient Education: baclofen- OptimizeRX Coupon [id number] https://www.[employer]/samplemd/resources/getResource/61/[email or web address]-[email or web address] Completed 11/20/2018 Visit Diagnosis Plan: Migraine, unspecif ied, intractable, without status migrainosus Discussion: toradol/phenergan given in o ffice (60 mg toradol, 12.5 mg phenergan). instructed to call if no improvement or worsening. instructed to follow up with science instructor since headaches are occurring more frequently to make sure vision is not the cause. ICD-9 : 346.91 ICD-10 : G43.919 11/04/2018 Visit Diagnosis Plan: Acute sinusitis, unspecified Dis cussion: zithromax prescribed to cover for sinus infection due to length of symptoms and clinincal s/s. ICD-9 : 461.9 ICD-10 : J01.90 11/04/2018 Appointment: Pattie Sotomayor [address] [place], [place] [phone] ACUTE ILLNESS 11/04/2018 Appointment: Belia Reid WPtel: [address] [place], [place] [phone] [place] CANCELED 09/24/2018 Visit Diagnosis Plan: Type [...] : I10 09/18/2018 Appointment: Belia Reid WPtel: [address] [place], [place] [phone] Annual Well Visit 09/18/2018 Patient Education: gabapentin- OptimizeRX Coupon [phone] https://www.[employer].com/samplemd/resources/getResource/61/[email or web address]-[email or web address] Completed 09/18/2018 Visit Diagnosis Plan: Pain in [...] ICD-10 : M54.89 09/08/2018 Appointment: Pattie Sotomayor [address] [place], [place] [address] ACUTE ILLNESS 09/08/2018 Patient Education: prednisone- OptimizeRX Coupon [phone] https://www.[employer].Jack[employer]/samplemd/resources/getResource/61/[email or web address]-og Completed 09/08/2018 Visit Diagnosis Plan: Pruritus, unspecified [...] : E10.9 08/20/2018 Appointment: Belia Reidtel: 2305 [facility] ACUTE ILLNESS 08/20/2018 Patient Education: Lexapro- OptimizeRX Coupon [id number] Completed 08/20/2018 Patient Education: hydroxyzine HCl- OptimizeRX Coupon [id number] Completed 08/20/2018 Care Plan: MAMMOGRAM SCREENING LOINC : 2 6347-5 Pending 08/20/2018 Visit Diagnosis Plan: Paroxysmal atrial fibrillation D iscussion: Discuss eliquis need with cardiology at [facility] due to cost ICD-9 : 427.31 ICD-10 : I48.0 06/19/2018 Visit Diagnosis Plan: Hypotension due to drugs Discuss ion: Discussed decreasing cardizem dose due to low BP and edema but sees cardiology next week Follow Up: 1 months ICD-9 : 458.8 ICD-10 : I95.2 06/19/2018 Appointment: Belia Reid WPtel: [address] [place], [place] [phone] [place] FOLLOW UP 06/19/2018 Visit Diagnosis Plan: [...] : R61 06/09/2018 Appointment: Belia Reid WPtel: [address] [place], [place] [phone] [place] FOLLOW UP 06/09/2018 Care Plan: CHEST X-RAY 2VW FRONTAL&LATL LOINC : 37929-5 Pending 05/26/2018 Visit Diagnosis Plan: Supraventricular tachycardia [...] : R53.1 05/21/2018 Appointment: Belia Reid WPtel: [facility] Hospital Follow Up 05/21/2018 Visit Diagnosis Plan: Cervical disc diso rder with radiculopathy, unspecified cervical region Discussion: Scheduled for surgery on 06/02 10/[address] Faulkner ICD-9 : 722.0 ICD-10 : M50.10 04/16/2018 Appointment: Belia Reid WPtel: [address] [place], [place] [phone] [place] [address] Follow Up 04/16/2018 Visit Diagnosis Plan: Fibromyalgia [...] ICD-10 : G43.919 04/01/2018 Appointment: Pattie Sotomayor [address] [place] [address] ACUTE ILLNESS 04/01/2018 Appointment: Belia Reid WPtel: [address] [place] [address] 03/17/2018 Visit Diagnosis Plan: Chronic obstructiv e [...] : E11.65 03/06/2018 Appointment: Belia Reid WPtel: [address] [place] [address] Hospital Follow Up 03/06/2018 Visit Diagnosis Plan: Cervicalgia Discussion: spoke wi th dr. reid about patient. increased gabapentin to bid and started on celebrex bid. tramadrol rx written out to take prn. keep scheduled appt next week for myelogram. ICD-9 : 723.1 ICD-10 : M54.2 02/05/2018 Appointment: Bran, Pattie R. [address] [place], [place] [address] ACUTE ILLNESS 02/05/2018 Care Plan: X-RAY EXAM NECK SPINE 4/5VWS cervical LOINC : 19690-4 Pending 01/21/2018 Visit Diagnosis Plan: Candidiasis of [...] : M54.2 01/20/2018 Appointment: Bran Pattie R. [address] [place], [place] [phone] ACUTE ILLNESS 01/20/2018 Visit Diagnosis Plan: Pain in thoracic spine Discussio n: Proceed with CT scan of thoracic spine Will likely need PT ICD-9 : 724.1 ICD-10 : M54.6 12/25/2017 Appointment: Belia Reid WPtel: [phone] FOLLOW UP 12/25/2017 Care Plan: CT THORAX W/O DYE LOINC : 473 66-0 Pending 12/25/2017 Visit Diagnosis Plan: Pain in thoracic spine Discussio n: Stretches Alternated heat/ice Topical aspercreme with lidocaine Flexeril Recheck 1 week Flu and Pneumovax given ICD-9 : 724.1 ICD-10 : M54.6 12/17/2017 Appointment: Belia Reid WPtel: [phone] ACUTE ILLNESS 12/17/2017 Patient Education: Patient [...] ICD-10 : J44.1 10/30/2017 Appointment: Belia Reidtel: [address] [place], [place] [phone] [place] FOLLOW UP 10/30/2017 Patient Education: Patient Medication Summary Completed 10/30/2017 Visit Diagnosis Plan: Chronic obstructiv e pulmonary disease with acute lower respiratory infection Discussion: Continue SVNs with albuterol q4hrs Add Trelagy 1 inhalation daily Finish steroids Increase water intake Follow Up: 1 weeks ICD-9 : 496 ICD-10 : J44.0 10/23/2017 Appointment: Belia Reidtel: [address] [place] [address] [place] WORK IN 10/23/2017 Patient Education: Patient Medication Summary Completed 10/23/2017 Appointment: Belia Reidtel: [address] [place], [place] [phone] [place] NO SHOW 10/16/2017 Visit Diagnosis Plan: [...] ICD-10 : E11.65 09/17/2017 Appointment: Belia Reidtel: [address] [place], [place] [phone] Annual Well Visit 09/17/2017 Patient Education: Patient Medication Summary Completed 09/17/2017 Appointment: Belia Reidtel: [address] [place] [phone] [place] INJECTION 08/26/2017 Patient Education: Patient Medication Summary Completed 08/26/2017 Appointment: Belia Reidtel: [phone] [id number] [place] CANCELED 07/31/2017 Visit Diagnosis Plan: Encounter [...] : J20.9 07/19/2017 Appointment: Pattie Sotomayor [address] [facility] ACUTE ILLNESS 07/19/2017 Patient Education: Patient Medication Summary Completed 07/19/2017 Care Plan: MAMMOGRAM SCREENING LOINC : 2 6347-5 Pending 07/19/2017 Patient Education: Patient Medication Summary Completed 06/05/2017 Care Plan: LIPID PANEL LOINC : 83558-6 Pending 06/05/2017 Care Plan: A1C HPLC LOINC : 30084-2 Pending 06/05/2017 Visit Diagnosis Plan: Rash and [...] : R21 05/29/2017 Appointment: Pattie Sotomayor [address] [id number] FOLLOW UP 05/29/2017 Patient Education: Patient Medication Summary Completed 05/29/2017 Visit Diagnosis Plan: Tinea corporis Discussion: Diflu can and topical nystatin Follow Up: 2 weeks ICD-9 : 110.5 ICD-10 : B35.4 05/07/2017 Visit Diagnosis Plan: Diarrhea, unspecified Discussion : Diflucan Cholestyramine Recheck 2weeks ICD-9 : 787.91 ICD-10 : R19.7 05/07/2017 Appointment: Belia Reid WPtel: [address] [place] [phone] [place] FOLLOW UP 05/07/2017 Patient Education: Patient Medication Summary Completed 05/07/2017 Appointment: Belia Reid WPtel: [address] [place], [place] [phone] [place] RESCHEDULED 04/30/2017 Visit Diagnosis Plan: Chronic obstructiv e pulmonary disease with (acute) exacerbation Discussion: Finish prednisone Continue S VNS with albuterol ICD-9 : 491.21 ICD-10 : J44.1 03/18/2017 Visit Diagnosis Plan: Stridor Discussion: Increase Ati van 0.5mg po to TID routinely for next week then can go back to prn ICD-9 : 786.1 ICD-10 : R06.1 03/18/2017 Appointment: Belia Reid WPtel: [address] [place] [phone] ER Follow UP 03/18/2017 Patient Education: Patient [...] : E11.65 02/27/2017 Appointment: Belia Reid WPtel: [address] [place] [phone] [place] FOLLOW UP 02/27/2017 Patient Education: Patient [...] : E11.65 02/22/2017 Appointment: Pattie Sotomayor 504 [facility] ACUTE ILLNESS 02/22/2017 Patient Education: Patient Medication [...] 486 ICD-10 : J18.9 01/23/2017 Appointment: Belia eRid WPtel: [facility] ER Follow UP 01/23/2017 Patient Education: Patient Medication Summary Completed 01/23/2017 Appointment: Pattie Sotomayor [address] [place], [place] [address] [facility] [place] CANCELED 01/17/2017 Appointment: Pattie Sotomayor [address] [place] [address] Annual Well Visit 01/14/2017 Visit Diagnosis Plan: Type 2 diabetes mellitus with hy perglycemia Discussion: Check CMP, HbA1C Flu shot and Prevnar 13 given Follow Up: 3 months ICD-9 : 250.02 ICD-10 : E11.65 12/20/2016 Visit Diagnosis Plan: Localized edema Discussion: Low Na diet Compression socks/Elevate feet ICD-9 : 782.3 ICD-10 : R60.0 12/20/2016 Appointment: Belia Reid WPtel: [address] [place] [address] FOLLOW UP 12/20/2016 Patient Education: Patient Medication Summary Completed 12/20/2016 Patient Education: Patient Medication Summary Completed 10/10/2016 Visit Plan: Xrays of cervical, thoracic and lumbar spine at [facility] for Mobic (stop NSAIDS except Tylenol) and Flexeril UA sent for C&S Using SVN Call in 2-3 days if pain not improved or any worsening 10/08/2016 Appointment: Celeste Ferreira WPtel: [address] [place], [place] [phone] ACUTE ILLNESS 10/08/2016 Patient Education: [...] : E11.65 09/19/2016 App[facility]ment[facility] 09/18 confirmed`sl FOLLOW UP 09/19/2016 Patient Education: [...] : R10.84 08/20/2016 Appointment: Belia Reid WPtel: [address] [place] [address] 08/16 confirmed~sl FOLLOW UP 08/20/2016 Patient Education: [...] : J44.9 06/19/2016 Appointment: Belia Reid WPtel: [address] [place] [phone] 06/18 confirmed ~ Hospital Follow Up 06/19/2016 [...] : Z87.440 06/04/2016 Appointment: Belia Reid WPtel: [address] [place] [address] [place] 06/01 confirmed~sl FOLLOW UP 06/04/2016 Patient [...] : R06.1 05/02/2016 Appointment: Belia Reid WPtel: [address] [place], [place] [address] 05/01 confirmed [facility] Hospital Follow Up 05/02/2016 Patient Education: Patient [...] : N39.0 04/03/2016 Appointment: Belia Reid WPtel: [address] [place], [place] [phone] [facility] 04/03/2016 Patient Education: Patient Medication Summary Completed 04/03/2016 Visit Plan: Lungs are clear Her symptoms and exam are all upper airway restriction/constriction Can try supportive care Rx as above Follow up PRN 02/29/2016 Appointment: Lidia Hwang [address] [place], [place] [phone] ACUTE ILLNESS 02/29/2016 Patient Education: Patient Medication Summary Completed 02/29/2016 Visit Plan: Toradol/Phenergan today for Migraine Change to Clindamycin to cover lactobacillus for UTI Cover with flagyl due to hx of C. Diff 02/02/2016 Appointment: Belia Reid WPtel: [address] [place], [place] [phone] 01/31 confirmed`sl ACUTE ILLNESS 02/02/2016 Patient Education: Patient Medication Summary Completed 02/02/2016 Visit Plan: Increase neurontin to 300mg q AM and 600mg q PM Discussed neurology re-evaluation Flu shot given Need to check on Pneumonia shot Rx written out for albuterol 01/05/2016 Appointment: Belia Reid WPtel: [address] [place], [place] [phone] 01/03 confirmed ~sl Annual Well Visit 01/05/2016 Patient Education: Patient Medication Summary Completed 01/05/2016 Visit Plan: Cipro Culture urine hydrate Flexeril refilled Alternate heat and ice for back Increase gabapentin to 300mg po BID Notify if worsens 12/05/2015 Appointment: Belia Reid WPtel: [address] [place] [phone] 11/30 confirmed~sl ACUTE ILLNESS 12/05/2015 Patient Education: Patient Medication Summary Completed 12/05/2015 Patient Education: Patient Medication Summary Completed 10/27/2015 Care Plan: [place] : [address]-8 Pending 10/27/2015 Care Plan: A1C HPLC LOINC : 80874-7 Pending 10/27/2015 Visit Plan: Lungs are CTA today and is f eeling improved overall Finish meds as ordered Continue inhalers and neb treatments Discussed migraine treatment options She does not feel she needs anything additional added today Refill of Januvia sent since no samples are available today 10/26/2015 Appointment: Lidia Hwang [address] [place], [place] [address] Hospital Follow Up 10/26/2015 Appointment: Lidia Hwang [address] [place], [place] [phone] CANCELED 10/26/2015 Patient Education: Patient Medication Summary Completed 10/26/2015 Patient Education: Natalia - 18+ - KENNETH - No [place] Completed 10/26/2015 Visit Plan: Office dip still abnormal Cu lture pending Switch to cipro - stop macrobid Push fluids - avoid caffeine Will call with culture results when available Follow up if worsening 10/05/2015 Appointment: Lidia Hwang [address] [place], [place] [phone] ER Follow UP 10/05/2015 Patient Education: Patient Medication Summary Completed 10/05/2015 Visit Plan: Proceed with PT for document ation of ROM and strength of all extremities Proceed with Power Mobility Device Trial of neurontin 300mg q HS--lyrica helped but patient unable to afford Recheck 1month 09/15/2015 Appointment: Belia Reid WPtel: [address] [place] [address] 09/13 confirmed~sl SPECIAL 09/15/2015 Patient Education: Patient Medication Summary Completed 09/15/2015 Visit Plan: Fille out Loan Discharge Pap erwork for total and permanent disability 08/25/2015 Patient Education: Patient Medication Summary Completed 08/25/2015 Visit Plan: Discussed with Dr Anushka Haywood at CT of head 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 and update if needed 08/24/2015 Appointment: Lidia Hwang [address] [place], [place] [phone] 08/22 confirmed~sl ACUTE ILLNESS 08/24/2015 Patient Education: Patient Medication Summary Completed 08/24/2015 Patient Education: Patient Medication Summary Completed 08/24/2015 Care Plan: US EXAM OF HEAD AND NECK carotid Ultrasound LOIN C : 76373-3 Pending 08/24/2015 Visit Plan: Long discussion about diet A ccuchecks daily Check HbA1C, CMP Change requip to mirapex 07/05/2015 Appointment: Belia Reid WPtel: [address] [place] [address] 07/03 confirmed ~sl FOLLOW UP 07/05/2015 Patient Education: Patient Medication Summary Completed 07/05/2015 Visit Plan: Add Breo ellipta 100 1 p BID Continue SVNs with duoneb QID 06/06/2015 Appointment: Belia Reid WPtel: [address] [place] [phone] Patient is calling for a ride, then [...] not improving 05/23/2015 Appointment: Huong Osborne WPtel: [address] [place], [place] [phone] ACUTE ILLNESS 05/23/2015 Appointment: Lidia Hwang [address] [place], [place] [address] ER Follow UP 05/23/2015 Patient Education: Patient Medication Summary Completed 05/23/2015 Visit Plan: Check pancreatic enzymes and US of pancreas as patient can't understand why she has diabetes since has no family history Discussed weight, diet, exercise all play an important role in diabetes and are risk factors as well Continue Januvia and accuchecks daily 05/05/2015 Appointment: Belia Reid WPtel: [address] [place], [place] [phone] FOLLOW UP 05/05/2015 Patient Education: Patient Medication Summary Completed 05/05/2015 Care Plan: US EXAM ABDOM COMPLETE LOINC : 56110-0 Ordered 05/05/2015 Visit Plan: Start Januvia 100mg daily [place] with diflucan and culture urine Accuchecks daily alternating times Recheck 6weeks 03/30/2015 Appointment: Belia Reid WPtel: [address] [place] [phone] [place] 03/29 confirmed~lb FOLLOW UP 03/30/2015 Patient Education: Patient Medication Summary Completed 03/30/2015 Appointment: Belia Reid WPtel: [address] [place] [phone] [place] 03/01 needs reschedule due to payment and insurance ~sl FOLLOW UP 03/02/2015 Visit Plan: Patient was just in ER last night so has not filled scripts yet Start Carafate and Flagyl and Cipro Add Hyophen 1 po BID Recheck 1mo 02/03/2015 Appointment: Belia Reid WPtel: [address] [place] [phone] 02/02lm ~sl...02/03/15 appt confirmed cn ACUTE I LLNESS 02/03/2015 Patient Education: Patient Medication Summary Completed 02/03/2015 Visit Plan: Warm soaks to vaginal area K elex and Diflucan and observe Zofran to use prn 12/29/2014 Appointment: Belia Reid WPtel: [address] [place], [place] [phone] 12/28 Confirmed ~sl ACUTE ILLNESS 12/29/2014 Patient Education: Patient Medication Summary Completed 12/29/2014 Appointment: Huong Osborne WPtel: [address] [place], [place] [phone] FOLLOW UP 09/24/2014 Appointment: Belia Reid WPtel: [address] [place] [phone] 09/15 confirmed -mf FOLLOW UP 09/16/2014 Visit Plan: Increase requip to 2mg po BI D Increase lyrica to 225mg total a day by adding an extra 75mg in AM Recheck in 2weeks Continue to patch left eye while sleeping 09/02/2014 Appointment: Belia Reid WPtel: [address] [place] [phone] 09/01 appt confirmed cn Hospital Follow Up 09/02 Patient Education: Patient Medication Summary Completed 09/02/2014 Visit Plan: To [facility] for observat ion to R/O CVA 08/25/2014 Appointment: Huong Osborne WPtel: [address] [place], [place] [phone] ACUTE ILLNESS 08/25/2014 Patient Education: Patient Medication Summary Completed 08/25/2014 Referral: Aaron Jonas WPtel: [facility] [phone] [facility], [address] In [place] location Initiated 04/26/2014 Referral: Brian Srinivasan WPtel: [facility] [id number] Referral Initiated 04/20/2014 Appointment: Belia Reid WPtel: [address] [place], [place] [phone] ER Follow UP 04/01/2014 Patient Education: Patient Medication Summary Completed 04/01/2014 Care Plan: MYELOGRAPHY NECK SPINE LOINC : 61552-7 Ordered 04/01/2014 Visit Plan: Continue Symbicort 160 at 2p BID Continue SVNs with duoneb at least QID Finish Levaquin Recheck 1mo on lyrica 03/16/2014 Appointment: Belia Reid WPtel: [address] [place], [place] [phone] 03/15 voicemail FOLLOW UP 03/16/2014 Patient Education: Patient Medication Summary Completed 03/16/2014 Visit Plan: Restart SVNs with duoneb QID Repeat prednisone Levaquin Continue symbicort Keep lyrica at same dose Recheck 1week 03/09/2014 Appointment: Belia Reid WPtel: [address] [place] [address] FOLLOW UP 03/09/2014 Patient Education: Patient Medication Summary Completed 03/09/2014 Appointment: Belia Reid WPtel: [address] [place], [place] [phone] 03/03 showed up 15 minutes late for appt -- put her on Huong's side for 10:45am FORGIVEN PER DR FOLLOW UP 03/03/2014 Appointment: Huong Osborne WPtel: [address] [place] [address] FOLLOW UP 03/03/2014 Patient Education: Patient Medication Summary Completed 03/03/2014 Appointment: Huong Osborne WPtel: [address] [place], [place] [phone] ER Follow UP 03/01/2014 Patient Education: Patient Medication Summary Completed 03/01/2014 Visit Plan: Add carafate for this next m onth Increase lyrica to 150mg q HS 02/09/2014 Appointment: Belia Reidtel: [address] [place], [place] [address] [place] [address] Follow Up 02/09/2014 Patient Education: Patient Medication Summary Completed 02/09/2014 Visit Plan: Increase omeprazole back to 40mg po BID Use requip in AM and add lyrica 75mg q HS Recheck 1mo 12/23/2013 Appointment: Belia Reid WPtel: [address] [place] [address] FOLLOW UP 12/23/2013 Patient Education: Patient Medication Summary Completed 12/23/2013 Patient Education: Patient Medication Summary Completed 12/04/2013 Appointment: Belia Reid WPtel: [address] [place] [address] 10/30/2013 Patient Education: Patient Medication Summary Completed 10/30/2013 Appointment: Belia Reid WPtel: [address] [place] [address] 10/21/2013 Patient Education: Patient Medication Summary Completed 10/21/2013 Visit Plan: Cryotherapy as above TAC and hydroxyzine to use prn to itching spots and itching SKs Add Advair HFA 115/21 1 p BID 10/05/2013 Appointment: Belia Reid WPtel: [address] [place], [place] [phone] 10/01 pt called and confirmed ACUTE ILLNESS Patient Education: Patient Medication Summary Completed 10/05/2013 Appointment: Belia Reid WPtel: [address] [place], [place] [phone] will pay copay and part of past balance FOLLOW U P 08/04/2013 Patient Education: Patient Medication Summary Completed 08/04/2013 App[facility]ment: [facility] [phone] [facility] [place] IN[facility] 07/13/2013 Patient Education: Patient Medication Summary Completed 07/13/2013 Appointment: Huong Osborne WPtel: [address] [place], [place] [id number] [place] ACUTE ILLNESS 07/03/2013 Patient Education: Patient Medication Summary Completed 07/03/2013 Visit Plan: Cipro and culture urine 05/27/2013 Appointment: Huong Osborne WPtel: [address] [place], [place] [id number] [place] 05/26 confirmed appt and notified that balance and copy 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 technician y is due at appt time FOLLOW UP 05/27/2013 Patient Education: Patient Medication Summary Completed 05/27/2013 Appointment: Belia Reid WPtel: [address] [place], [place] [phone] [place] UA 05/25/2013 Patient Education: Patient Medication Summary Completed 05/25/2013 Appointment: Belia Reid WPtel: [address] [place] [phone] [place] INJECTION 05/04/2013 Patient Education: Patient Medication Summary Completed 05/04/2013 Appointment: Belia Reid WPtel: [address] [place], [place] [phone] [place] INJECTION 04/17/2013 Patient Education: Patient Medication Summary Completed 04/17/2013 Appointment: Belia Reid WPtel: [address] [place] [phone] [place] INJECTION 04/15/2013 Appointment: Belia Reid WPtel: [address] [place] [phone] [place] 04/02 FOLLOW UP 04/06/2013 Patient Education: Patient Medication Summary Completed 04/06/2013 Visit Plan: Obtain lab results including UA from [facility] 11/10/2012 Appointment: Belia Reid WPtel: [address] [place], [place] [phone] ER Follow UP 11/10/2012 Patient Education: Patient Medication Summary Completed 11/10/2012 Appointment: Belia Reid WPtel: [address] [place], [place] [phone] 10/30/12 patient canceled appt due to fin ances. Offered to work something out, patient declined-LB FOLLOW UP 11/05/2012 Visit Plan: Continue Bystolic at current dose Pt has fwup with Neurology on September 16 09/02/2012 Appointment: Belia Reid WPtel: [address] [place] [address] FOLLOW UP 09/02/2012 Patient Education: Patient Medication Summary Completed 09/02/2012 Visit Plan: Continue bystolic at 5mg chris ly Sees Neurology tomorrow Use oxygen at bedtime 08/04/2012 Appointment: Belia Reid WPtel: [address] [place], [place] [phone] FOLLOW UP 08/04/2012 Patient Education: Patient Medication Summary Completed 08/04/2012 Appointment: Belia Reid WPtel: [address] [place], [place] [phone] [place] [address] Hospital fwup for 07/21/12. merged appointments FOLLOW UP 07/24/2012 Visit Plan: Start Bystolic 5mg daily for tachycardia Fwup with neurology for further workup Overnight O2 sat 07/21/2012 Appointment: Belia Reid WPtel: [address] [place], [place] [phone] Hospital Follow Up 07/21/2012 Patient Education: Patient Medication Summary Completed 07/21/2012 Visit Plan: SVN with Albuterol QID Add A velox 400mg daily Notify if worsens or persists 07/02/2012 Appointment: Belia Reid WPtel: [address] [place] [address] ACUTE ILLNESS 07/02/2012 Patient Education: Patient Medication Summary Completed 07/02/2012 Appointment: [facility] [phone] [facility] [place] INJECTION 06/25/2012 Patient Education: Patient Medication Summary Completed 06/25/2012 Appointment: Bel[facility] [phone] [facility] FOLLOW UP 06/24/2012 Patient Education: Patient Medication Summary Completed 06/24/2012 Appointment: [facility] [phone] [facility] 05/19 left message FOLLOW UP 05/20/2012 Patient [...] po TID 05/08/2012 Appointment: Belia Reid WPtel: [address] [place] [id number] ACUTE ILLNESS 05/08/2012 Patient Education: Patient Medication Summary Completed 05/08/2012 Visit Plan: Continue current meds Contin ue lower dose on pain meds and Diazepam Still waiting on paperwork for botox for Migraines Will restart Neurontin at 600mg po q HS Pt going to stop Depakote due to can't afford 04/22/2012 Appointment: Belia Reid WPtel: [address] [place] [id number] 04/21 Hospital Follow Up 04/22/2012 Patient Education: Patient Medication Summary Completed 04/22/2012 Visit Plan: Injection to shoulder as abo ve Continue current meds Has appointment with neurology on HAs in 02/13/2012 Appointment: Belia Reid WPtel[facility] Pt does not have $10 copay at [facility] t time - will bring it in next week. Kianna iqbal'ed this. - [place] FOLLOW UP 02/13/2012 Patient Education: Patient Medication Summary Completed 02/13/2012 Visit Plan: Proceed with headache specia list Change nexium to Protonix Phenergan to use prn Sumatriptan to use prn Pt still on Inderal 01/28/2012 Appointment: Belia Reid WPtel: [address] [place], [place] [address] ER Follow UP 01/28/2012 Patient Education: Patient [...] for sleep 12/26/2011 Appointment: Belia Reid WPtel: [address] [place], [place] [phone] 12/24- appt. confirmed FOLLOW UP 2 Patient Education: Patient Medication Summary Completed 12/26/2011 Appointment: Belia Reid WPtel: [address] [place], [place] [phone] [place] FOLLOW UP 11/14/2011 Patient Education: Patient Medication Summary Completed 11/14/2011 Appointment: Belia Reid WPtel: [address] [place] [phone] [place] FOLLOW UP 09/12/2011 Patient Education: Patient Medication Summary Completed 09/12/2011 Visit Plan: Supportive care Decrease Liseth catalino to 50mg q HS Decrease AM dose of Valium to 5mg q HS Use Endocet sparingly 08/15/2011 Appointment: Belia Reid WPtel: [address] [place] [phone] ER Follow UP 08/15/2011 Patient Education: Patient Medication Summary Completed 08/15/2011 Appointment: Belia Reid WPtel: [address] [place] [address] [place] Spoke directly to patient yesterday and confirmed the appoin tment. ACUTE ILLNESS 08/09/2011 Patient Education: Patient Medication Summary Completed 08/09/2011 Appointment: Belia Reid WPtel: [address] [place] [address] Hospital Follow Up 07/03/2011 Patient Education: Patient Medication Summary Completed 07/03/2011 Appointment: Belia Reid WPtel: [address] [place] [address] FOLLOW UP 06/04/2011 Patient Education: Patient Medication Summary Completed 06/04/2011 Visit Plan: Pt. wants "allergy shot" but in fact wants steroid shot. Will take a break from "generic Zyrtec they are getting from [facility]" and try Singulair for 2 weeks. 05/03/2011 Appointment: Iriada Jones WPtel: [address] [place] [address] ACUTE ILLNESS 05/03/2011 Patient Education: Patient Medication Summary Completed 05/03/2011 Visit Plan: Neurontin 400mg q HS for 1we ek then 800mg q HS Decrease requip to 1mg q HS for 2wks then stop Fwup 2mos 04/05/2011 Appointment: Belia Reid WPtel: [address] [place] [address] FOLLOW UP 04/05/2011 Patient Education: Patient Medication Summary Completed 04/05/2011 Visit Plan: Trial of neurontin in 2wks C ontinue current meds for stomach Pt has procedure with Dr. Ortiz next week for stone removal 03/08/2011 Appointment: Belia Reid WPtel: [address] [place], [place] [phone] Hospital Follow Up 03/08/2011 Patient Education: Patient Medication Summary Completed 03/08/2011 Appointment: Belia Reid WPtel: [address] [place], [place] [phone] [place] FOLLOW UP 02/19/2011 Visit Plan: reports [...] with Flagyl 01/24/2011 Appointment: Iraida Jones WPtel: [address] [place] [address] ACUTE ILLNESS 01/24/2011 Patient Education: Patient Medication Summary Completed 01/24/2011 Appointment: Belia Reid WPtel: [address] [place] [address] [place] FOLLOW UP 01/02/2011 Patient Education: Patient Medication Summary Completed 01/02/2011 Appointment: Belia Reid WPtel: [address] [place] [address] FOLLOW UP 12/12/2010 Appointment: Belia Reid WPtel: [address] [place] [address] ACUTE ILLNESS 12/07/2010 Patient Education: Patient Medication Summary Completed 12/07/2010 Visit Plan: Increase Buspar to 10mg po B ID 11/16/2010 Appointment: Belia Reid WPtel: [address] [place], [place] [phone] [place] FOLLOW UP 11/16/2010 Patient Education: Patient Medication Summary Completed 11/16/2010 Appointment: Iraida Jones WPtel: [address] [place], [place] [phone] ER Follow UP 11/02/2010 Patient Education: Patient Medication Summary Completed 11/02/2010 Visit Plan: Depo-Medrol/Kenalog given fo r allergies Add BuSpar for anxiety Oxycodone one p.o. q.i.d. for number 120 refilled 10/18/2010 Appointment: Belia Reid WPtel: [address] [place] [address] FOLLOW UP 10/18/2010 Patient Education: Patient Medication Summary Completed 10/18/2010 Visit Plan: Continue current meds Discus sed epidurals for back vs PT--will proceed with epidurals to thoracolumbar region to see if helps with pain 09/19/2010 Appointment: Belia Reid WPtel: [address] [place], [place] [phone] FOLLOW UP 09/19/2010 Patient Education: Patient Medication Summary Completed 09/19/2010 Visit Plan: DC MS contin Check CT scan t horacic spine Fwup pending above results 09/06/2010 Appointment: Belai Reid WPtel: [address] [place] [address] FOLLOW UP 09/06/2010 Patient Education: Patient Medication Summary Completed 09/06/2010 Visit Plan: Continue current meds Restar t MS contin 15mg po BID and use oxycodone prn Use daily senokot-s 2 po BID 08/10/2010 Appointment: Belia Reidtel: [address] [place], [place] [phone] FOLLOW UP 08/10/2010 Patient Education: Patient Medication Summary Completed 08/10/2010 Visit Plan: Depomedrol/Kenalog given Pt sees ENT later this month Cont current meds Mammo scheduled 05/11/2010 Appointment: Belia Reid WPtel: [address] [place], [place] [phone] FOLLOW UP 05/11/2010 Patient Education: Patient Medication Summary Completed 05/11/2010 Appointment: Belia Reidtel: [address] [place], [place] [phone] UA 05/04/2010 Patient Education: Patient Medication Summary Completed 05/04/2010 Visit Plan: Pt sent to lab for UA 04/28/2010 Appointment: Belia Reidtel: [address] [place], [place] [phone] [place] [address] 04/28/2010 Patient Education: Patient Medication Summary Completed 04/28/2010 Visit Plan: Check CT angiogram of chest Restart Advair Use proair prn Cont current meds Fwup with Card as schedulec 04/06/2010 Appointment: Belia Reid WPtel: [address] [place] [address] Follow Up 04/06/2010 Patient Education: Patient Medication Summary Completed 04/06/2010 Visit Plan: Paperwork filled out for pow erchair Depomedrol/kenalog given Pt sees ENT in 2wks to assess nasal obstruction problems 02/09/2010 Appointment: Belia Reidtel: [address] [place] [address] ESTABLISHED PATIENT 02/09/2010 Patient Education: Patient Medication Summary Completed 02/09/2010 Visit Plan: Change Elavil to Trazadone 1 50mg q HS Diflucan and nystatin for tinea cruris 01/05/2010 Appointment: Belia Reidtel: [address] [place] [address] FOLLOW UP 01/05/2010 Patient Education: Patient Medication Summary Completed 01/05/2010 Appointment: Belia Reidtel: [address] [place] [address] FOLLOW UP 12/07/2009 Patient Education: Patient Medication Summary Completed 12/07/2009 Appointment: Belia Reid WPtel: [address] [place] [address] FOLLOW UP 11/22/2009 Visit Plan: Cont current meds and await MRI results from Dr. Meadows's office and his final recommendations Will need to follow-up at later date on deviated septum 11/08/2009 Appointment: Belia Reid WPtel: [address] [place], [place] [phone] FOLLOW UP 11/08/2009 Patient Education: Patient Medication Summary Completed 11/08/2009 Visit Plan: Cont PT/OT See Neurosurgery Cont Dwain arora 10/24/2009 Appointment: Belia Reid WPtel: [address] [place], [place] [phone] FOLLOW UP 10/24/2009 Patient Education: Patient Medication Summary Completed 10/24/2009 Appointment: Belia Reid WPtel: [address] [place], [place] [phone] Hospital Follow Up 10/17/2009 Appointment: Belia Reid WPtel: [address] [place], [place] [phone] ACUTE ILLNESS 07/25/2009 Patient Education: Patient Medication Summary Completed 07/25/2009 Appointment: Belia Reid WPtel: [address] [place], [place] [phone] FOLLOW UP 05/26/2009 Patient Education: Patient Medication Summary Completed 05/26/2009 Referral: Chino Balderas WPtel: [facility] [place] Referral Initiated Referral: Merry Vale WPtel: [facility] [id number] Vale will review referral and book appointment Completed Referral: Francisco Javier Yoder WPtel: [address] [id number] [place] Patient needs EGD insurance will not inc rease a medication unless this procedure results show a need Completed Referral: Francisco Javier Yoder WPtel: [address] [id number] [place] Referral Historical Reference Referral: Francisco Javier Yoder WPtel: [address] [id number] [place] Referral Initiated Instructions Comment . 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 Long [...] from "generic Zyrtec they are getting from [facility]" and try Singulair for 2 weeks. . [...]
--- OUTSIDE RECORDS SUMMARY | 2019-08-27 07:46 | XMS REPORT | CCD ---
Author Author Diana Reid D.O. Organization [facility] Address [address] [place] [address] Phone Care Team Providers Care Casino Porter Name Role Phone [facility] PP Unavailable CCM Unavailable Summary Purpose Interface Exchange Insurance Providers Payer name Policy type / Coverage type Covered libertarian ID Effective Begin Date Effective End Date [employer] MEDICARE Medicare Part B [id number] 2019 Unknown Family History Family History data not found Social History Social History Element Codes Description Effective Dates Tobacco history SNOMED CT: 850436521 Nonsmoker 09/13/2010 Allergies, Adverse Reactions, Alerts Substance Reaction Codes Entered Date Inactivated Date Status Eggs reaction [id number] 09/15/2015 No Inactive Date Active _ Unknown [...] Fill Instructions baclofen 10 mg tablet RxNorm: 381552 1 Tablet(s) Oral QD for pa in/spasm 08/25/2019 09/24/2019 Active meloxicam 15 mg tablet RxNorm: 295228 1 Tablet(s) Oral QD for pain 08/25/2019 09/24/2019 Active Insulin Syringe 1 mL 29 gauge x 1/2" RxNorm: 2 s yringes daily with insulin Dx: E11.65 08/12/2019 No Stop Date Active Ativan 0.5 mg tablet RxNorm: 635022 1 Tablet(s) Oral th ree times a day for anxiety/shortness of air/stridor 07/29/2019 08/27/2019 Active Singulair 10 mg tablet RxNorm: 892691 1 Tablet(s) Oral QPM 07/29/1901/25/2020 Active diltiazem CD 240 mg capsule,extended release 24 hr RxNorm: 8 25251 1 Capsule(s) Oral QD 07/15/2019 01/10/2020 Active metoprolol tartrate 50 mg tablet RxNorm: 501419 1 Table t(s) Oral two times a day 07/06/2019 No Stop Date Active Novolin N NPH U-100 Insulin isophane 100 unit/mL subcu taneous susp RxNorm: 313846 25 Unit(s) Subcutaneous two times a day 07/06/2019 07/06/2019 I nactive Colestid 1 gram tablet RxNorm: 8920016 1 Tablet(s) Oral two times a day for diarrhea 07/06/2019 09/04/2019 Active pramipexole 1 mg tablet RxNorm: 638472 1 Tablet(s) Oral QPM FOR RESTLESS LEGS (REPLACES REQUIP) 06/25/2019 06/19/2020 Active hydroxyzine HCl 25 mg tablet RxNorm: 376658 1 Tablet(s) Oral QPM for itching/aniety 06/25/2019 09/23/2019 Active Ativan 0.5 mg tablet RxNorm: 585440 1 Tablet(s) Oral th ree times a day for anxiety/shortness of air/stridor 06/25/2019 07/25/2019 Inactive Levaquin 500 mg tablet RxNorm: 742536 1 Tablet(s) Oral QD 06/16/2019 06/23/2019 Inactive Flagyl 500 mg tablet RxNorm: 902975 1 Tablet(s) Oral three time s a day 06/16/2019 06/23/2019 Inactive Vancocin 125 mg capsule RxNorm: 656215 1 Capsule(s) Oral four t imes a day 06/08/2019 06/18/2019 Inactive omeprazole 40 mg capsule,delayed release RxNorm: 414632 1 Capsule(s) Oral two times a day 05/26/2019 11/21/2019 Active Flagyl 500 mg tablet RxNorm: 955168 1 Tablet(s) Oral three time s a day 05/26/2019 06/05/2019 Inactive diltiazem CD 240 mg capsule,extended release 24 hr RxNorm: 8 55994 1 Capsule(s) Oral QD 05/26/2019 07/14/2019 Inactive Cipro 250 mg tablet RxNorm: 525597 1 Tablet(s) Oral two times a day 05/26/2019 06/02/2019 Inactive hydroxyzine HCl 25 mg tablet RxNorm: 240040 1 Tablet(s) Oral QPM for itching/aniety 05/21/2019 06/24/2019 Inactive metoprolol tartrate 25 mg tablet RxNorm: 949099 1 Table t(s) Oral two times a day 05/21/2019 07/05/2019 Inactive hydroxyzine HCl 25 mg tablet RxNorm: 739096 1 Tablet(s) Oral QPM for itching/aniety 05/13/2019 05/20/2019 Inactive Singulair 10 mg tablet RxNorm: 488836 1 Tablet(s) Oral QPM 05/06/19 20 05/12/2019 Inactive gabapentin 600 mg tablet RxNorm: 015013 1 Tablet(s) Oral QD 020 06/05/2019 Inactive Valium 5 mg tablet RxNorm: 199339 1 Tablet(s) Oral QPM for stri joao/muscle spasm 04/29/2019 06/24/2019 Inactive baclofen 10 mg tablet RxNorm: 982890 1 Tablet(s) Oral QPM for s pasm/neck pain 04/24/2019 05/23/2019 Inactive baclofen 10 mg tablet RxNorm: 434868 1 Tablet(s) Oral QPM for s pasm/neck pain 04/24/2019 04/23/2019 Inactive Novolin N NPH U-100 Insulin isophane 100 unit/mL subcu taneous susp RxNorm: 744474 23 Unit(s) Subcutaneous two times a day 04/20/2019 07/05/2019 I nactive cyclobenzaprine 5 mg tablet RxNorm: 787034 1 Tablet(s) Oral three times a day as needed 04/16/2019 04/23/2019 Inactive hydroxyzine HCl 25 mg tablet RxNorm: 985875 1 Tablet(s) Oral three times a day for itching/aniety 04/08/2019 05/12/2019 Inactive gabapentin 600 mg tablet RxNorm: 237958 1 Tablet(s) Oral two ti mes a day 04/08/2019 05/05/2019 Inactive gabapentin 600 mg tablet RxNorm: 759737 1 Tablet(s) Oral two ti mes a day 04/08/2019 04/07/2019 Inactive Novolin N NPH U-100 Insulin isophane 100 unit/mL subcu taneous susp RxNorm: 409844 10 Unit(s) Subcutaneous two times a day 03/03/2019 04/19/2019 I nactive gabapentin 300 mg capsule RxNorm: 333863 1 Capsule(s) O ral every night at bedtime for neuropathy 02/26/2019 04/07/2019 Inactive gabapentin 300 mg capsule RxNorm: 761983 1 Capsule(s) O ral every night at bedtime for neuropathy 02/20/2019 02/25/2019 Inactive buspirone 5 mg tablet RxNorm: 165376 TAKE 1 TABLET THREE TIMES MILDRED Y 02/12/2019 05/12/2019 Inactive pramipexole 1 mg tablet RxNorm: 042584 1 Tablet(s) Oral QPM FOR RESTLESS LEGS (REPLACES REQUIP) 02/12/2019 06/24/2019 Inactive Lexapro 10 mg tablet RxNorm: 757863 TAKE 1 TABLET EVERY DAY FOR MOO D 01/31/2019 No Stop Date Active Ativan 0.5 mg tablet RxNorm: 514598 TAKE 1 TABLET BY [facility] THREE TIMES DAILY NEEDED FOR ANXIETY 01/26/2019 04/28/2019 Inactive Ativan 0.5 mg tablet RxNorm: 526552 TAKE 1 TABLET BY [facility] THREE TIMES DAILY NEEDED FOR ANXIETY 01/05/2019 01/05/2019 Inactive Levaquin 500 mg tablet RxNorm: 224245 1 Tablet(s) Oral QD 12/25/2018 12/24/2018 Inactive Levaquin 500 mg tablet RxNorm: 876568 1 Tablet(s) Oral QD 12/25/2018 01/04/2019 Inactive baclofen 10 mg tablet RxNorm: 131590 1 Tablet(s) Oral three maico es a day 11/20/2018 01/19/2019 Inactive Ativan 0.5 mg tablet RxNorm: 175751 TAKE 1 TABLET BY [facility] THREE TIMES DAILY NEEDED FOR ANXIETY 11/20/2018 01/04/2019 Inactive gabapentin 300 mg capsule RxNorm: 102655 1 Capsule(s) O ral every night at bedtime for neuropathy 11/20/2018 12/20/2018 Inactive Lexapro 10 mg tablet RxNorm: 071609 1 Tablet(s) PO QD for mood 07/201801/30/2019 Inactive Zithromax Z-Lj 250 mg tablet RxNorm: 443762 Tablet(s) PO take as directed 11/04/2018 11/19/2018 Inactive Insulin Syringe 1 mL 29 gauge x 1/2" RxNorm: 2 s yringes daily with insulin Dx: E11.65 10/08/2018 08/11/2019 Inactive gabapentin 300 mg capsule RxNorm: 128744 1 Capsule(s) PO QHS fo r neuropathy 09/18/2018 10/17/2018 Inactive cyclobenzaprine 5 mg tablet RxNorm: 935871 1 Tablet(s) PO TID a s needed 09/09/2018 09/08/2018 Inactive cyclobenzaprine 5 mg tablet RxNorm: 818640 1 Tablet(s) PO TID a s needed 09/09/2018 10/08/2018 Inactive prednisone 20 mg tablet RxNorm: 272266 1 Tablet(s) PO QD 09/08/2018 0 09/12/2018 Inactive Lantus Solostar U-100 Insulin 100 unit/mL (3 mL) subcu taneous pen RxNorm: 683624 55 Unit(s) SQ QAM 08/28/2018 11/03/2018 Inactive hydroxyzine HCl 25 mg tablet RxNorm: 045404 1 Tablet(s) PO QHS for itching 08/20/2018 05/12/2019 Inactive Lexapro 10 mg tablet RxNorm: 554520 1 Tablet(s) PO QD for mood 08/0210/18/2018 Inactive sumatriptan 100 mg tablet RxNorm: 941927 1 Tablet(s) PO at headache onset. May repeat 1 in two hours if headache remains. Max of 2 per 24 hours 04/02/2018 05/20/2018 Inactive Diflucan 150 mg tablet RxNorm: 736524 1 Tablet(s) PO QD 03/18/2018 Inactive Diflucan 150 mg tablet RxNorm: 280449 1 Tablet(s) PO QD 03/18/2018 Inactive Flagyl 500 mg tablet RxNorm: 245643 1 Tablet(s) PO TID 03/17/2018 Inactive Levaquin 500 mg tablet RxNorm: 573810 1 Tablet(s) PO QD 03/17/2018 Inactive Levaquin 500 mg tablet RxNorm: 787462 1 Tablet(s) PO QD 03/17/2018 Inactive Flagyl 500 mg tablet RxNorm: 902874 1 Tablet(s) PO TID 03/17/2018 Inactive ketoconazole 200 mg tablet RxNorm: 847435 1 Tablet(s) PO QD 019 03/19/2018 Inactive Celebrex 200 mg capsule RxNorm: 107018 1 Capsule(s) PO BID 02/06/20 18 05/20/2018 Inactive tramadol 50 mg tablet RxNorm: 219807 1 Tablet(s) PO TID as needed 1 04/08/2017 05/20/2018 Inactive gabapentin 300 mg capsule RxNorm: 721473 1 Capsule(s) PO BID 201705/20/2018 Inactive Diflucan 150 mg tablet RxNorm: 890427 1 Tablet(s) PO QD 01/20/2018 Inactive pramipexole 1 mg tablet RxNorm: 480072 1 Tablet(s) PO Q PM FOR RESTLESS LEGS (REPLACES REQUIP) 01/08/2018 02/11/2019 Inactive cyclobenzaprine 10 mg tablet RxNorm: 225081 1 Tablet(s) PO TID as needed for muscle spasm 12/17/2017 05/20/2018 Inactive pramipexole 1 mg tablet RxNorm: 536877 TAKE 1 TABLET BY MOUTH ONCE DAILY IN THE EVENING FOR RESTLESS LEGS (REPLACES REQUIP) 12/04/2017 01/05/2018 Inac tive Amaryl 4 mg tablet RxNorm: 674599 1 Tablet(s) PO BID replaces 2mg 0 11/05/2017 12/16/2017 Inactive Singulair 10 mg tablet RxNorm: 716994 1 Tablet(s) PO QHS for al lergies/lungs 10/30/2017 12/16/2017 Inactive Diflucan 100 mg tablet RxNorm: 730196 1 Tablet(s) PO QD 10/23/2017 Inactive Ativan 0.5 mg tablet RxNorm: 403402 TAKE 1 TABLET BY MOUTH THRE E TIMES DAILY 08/30/2017 11/20/2018 Inactive buspirone 5 mg tablet RxNorm: 971757 1 Tablet(s) PO TID 07/11/2017 Inactive propranolol 60 mg tablet RxNorm: 011235 1 Tablet(s) PO BID repl aces 40mg dose 06/26/2017 12/16/2017 Inactive Amaryl 4 mg tablet RxNorm: 008961 1 Tablet(s) PO BID replaces 2mg 0 06/12/2017 11/05/2017 Inactive omeprazole 40 mg capsule,delayed release RxNorm: 374171 1 Capsule(s) PO BID TAKE ONE CAPSULE BY MOUTH TWICE DAILY 05/30/2017 11/25/2017 Inactive pramipexole 1 mg tablet RxNorm: 541852 1 Tablet(s) PO Q PM for restless legs--replaces requip 05/30/2017 11/25/2017 Inactive amitriptyline 50 mg tablet RxNorm: 137742 1 Tablet(s) PO QHS 201709/16/2017 Inactive Diflucan 100 mg tablet RxNorm: 668681 1 Tablet(s) PO BID 05/07/2017 0 05/20/2017 Inactive nystatin (bulk) 100 million unit powder RxNorm: Application TO P BID 05/07/2017 05/20/2018 Inactive cholestyramine (with sugar) 4 gram oral powder RxNorm: 262988 1 Unit Dose PO QD 05/07/2017 01/20/2018 Inactive Ativan 0.5 mg tablet RxNorm: 329039 TAKE ONE TABLET BY MOUTH TH REE TIMES DAILY 05/01/2017 09/02/2017 Inactive Trulicity 1.5 mg/0.5 mL subcutaneous pen injector RxNorm: 15 77980 1 Unit Dose SQ WEEKLY 02/22/2017 03/23/2017 Inactive doxycycline hyclate 100 mg capsule RxNorm: 0188828 1 Capsule(s) PO BID 01/23/2017 02/05/2017 Inactive Amaryl 4 mg tablet RxNorm: 766433 1 Tablet(s) PO BID replaces 2mg 1 03/25/2016 05/22/2017 Inactive magnesium oxide 400 mg capsule RxNorm: 441132 1 Capsule(s) PO QD 07/18/2017 Inactive Ativan 0.5 mg tablet RxNorm: 071196 TAKE ONE TABLET BY MOUTH TH REE TIMES DAILY 01/17/2017 05/01/2017 Inactive Amaryl 2 mg tablet RxNorm: 995628 1 Tablet(s) PO BID 12/27/201601/22 Inactive Amaryl 2 mg tablet RxNorm: 784740 1 Tablet(s) PO BID 12/26/201612/26 Inactive Ativan 0.5 mg tablet RxNorm: 325820 TAKE ONE TABLET BY MOUTH TH REE TIMES DAILY 12/05/2016 01/18/2017 Inactive pramipexole 1 mg tablet RxNorm: 826973 1 Tablet(s) PO Q PM for restless legs--replaces requip 11/26/2016 05/30/2017 Inactive Mobic 15 mg tablet RxNorm: 128184 1 Tablet(s) PO QD 10/08/20162016 Inactive cyclobenzaprine 5 mg tablet RxNorm: 086894 1/2- 1 Tablet(s) PO TID 10/08/2016 10/17/2016 Inactive Ativan 0.5 mg tablet RxNorm: 972069 1 Tablet(s) PO TID 09/20/201607/2016 Inactive amitriptyline 50 mg tablet RxNorm: 548476 1 Tablet(s) PO QHS 201605/30/2017 Inactive propranolol 60 mg tablet RxNorm: 785435 1 Tablet(s) PO BID repl aces 40mg dose 09/19/2016 06/26/2017 Inactive Ativan 0.5 mg tablet RxNorm: 200351 1 Tablet(s) PO TID 08/20/2016 Inactive omeprazole 40 mg capsule,delayed release RxNorm: 933084 1 Capsule(s) PO BID TAKE ONE CAPSULE BY MOUTH TWICE DAILY 08/20/2016 05/30/2017 Inactive amitriptyline 50 mg tablet RxNorm: 596496 1 Tablet(s) PO QHS 201609/18/2016 Inactive pramipexole 1 mg tablet RxNorm: 720717 1 Tablet(s) PO Q PM for restless legs--replaces requip 07/23/2016 11/25/2016 Inactive Amaryl 2 mg tablet RxNorm: 656518 1 Tablet(s) PO BID 07/23/201612/27 Inactive propranolol 40 mg tablet RxNorm: 921447 1 Tablet(s) PO BID 07/13/19 17 09/18/2016 Inactive Ativan 0.5 mg tablet RxNorm: 226979 1 Tablet(s) PO QID 06/19/2016 Inactive Amaryl 2 mg tablet RxNorm: 543243 1 Tablet(s) PO BID 06/19/201607/22 Inactive Ativan 0.5 mg tablet RxNorm: 448302 1 Tablet(s) PO QID 06/19/2016 Inactive buspirone 5 mg tablet RxNorm: 742411 1 Tablet(s) PO TID 06/19/2016 Inactive Ativan 0.5 mg tablet RxNorm: 330850 1 Tablet(s) PO BID 05/24/2016 Inactive buspirone 5 mg tablet RxNorm: 098249 1 Tablet(s) PO TID 05/23/2016 Inactive Macrobid 100 mg capsule RxNorm: 297429 1 Capsule(s) PO QOD 05/03/19 17 10/07/2016 Inactive pramipexole 1 mg tablet RxNorm: 644394 Tablet(s) 1 Tabl et(s) PO QPM for restless legs--replaces requip 04/26/2016 06/24/2016 Inactive propranolol 40 mg tablet RxNorm: 092752 TAKE ONE TABLET BY MOUT H TWICE DAILY 04/26/2016 06/24/2016 Inactive Detrol LA 4 mg capsule,extended release RxNorm: 824308 1 Capsul e(s) PO QHS 04/03/2016 05/02/2016 Inactive prednisone 20 mg tablet RxNorm: 542983 1 Tablet(s) PO QD 02/29/2016 0 03/04/2016 Inactive Actos 30 mg tablet RxNorm: 933243 TAKE ONE TABLET BY MOUTH ONCE DAILY 02/27/2016 12/19/2016 Inactive clindamycin 300 mg capsule RxNorm: 214524 1 Capsule(s) PO TID 02/0102/08/2016 Inactive Flagyl 500 mg tablet RxNorm: 081448 1 Tablet(s) PO BID 02/02/201609/2015 Inactive omeprazole 40 mg capsule,delayed release RxNorm: 530344 TAKE ONE CAPSULE BY MOUTH TWICE DAILY 01/15/2016 07/12/2016 Inactive gabapentin 300 mg capsule RxNorm: 561031 1 Capsule(s) PO QAM an d 2 po q HS 01/05/2016 06/18/2016 Inactive gabapentin 300 mg capsule RxNorm: 678438 1 Capsule(s) P O BID 1 Capsule(s) PO QHS 12/05/2015 01/04/2016 Inactive cyclobenzaprine 10 mg tablet RxNorm: 047477 1 Tablet(s) PO TID for spasm as needed for muscle spasm 12/05/2015 06/18/2016 Inactive ciprofloxacin 250 mg tablet RxNorm: 000401 1 Tablet(s) PO BID 12/0412/14/2015 Inactive pramipexole 1 mg tablet RxNorm: 399213 Tablet(s) 1 Tabl et(s) PO QPM for restless legs--replaces requip 11/07/2015 11/26/2016 Inactive Januvia 100 mg tablet RxNorm: 844334 1 Tablet(s) PO QD 10/26/201504/2015 Inactive propranolol 40 mg tablet RxNorm: 875594 TAKE ONE TABLET BY MOUT H TWICE DAILY 10/25/2015 04/21/2016 Inactive gabapentin 300 mg capsule RxNorm: 626375 1 Capsule(s) PO QHS 201512/04/2015 Inactive Cipro 500 mg tablet RxNorm: 425149 1 Tablet(s) PO BID 10/05/201511/2015 Inactive pramipexole 1 mg tablet RxNorm: 317601 Tablet(s) 1 Tabl et(s) PO QPM for restless legs--replaces requip 10/04/2015 11/02/2015 Inactive propranolol 40 mg tablet RxNorm: 637096 TAKE ONE TABLET BY MOUT H TWICE DAILY 09/26/2015 10/24/2015 Inactive Amaryl 2 mg tablet RxNorm: 206729 1 Tablet(s) PO QD 09/15/20152016 Inactive gabapentin 300 mg capsule RxNorm: 492664 1 Capsule(s) PO QHS 201510/14/2015 Inactive buspirone 5 mg tablet RxNorm: 646802 1 Tablet(s) PO TID 09/15/2015 Inactive pramipexole 1 mg tablet RxNorm: 215950 Tablet(s) 1 Tabl et(s) PO QPM for restless legs--replaces requip 09/08/2015 10/03/2015 Inactive pramipexole 1 mg tablet RxNorm: 755492 1 Tablet(s) PO Q PM for restless legs--replaces requip 08/08/2015 09/08/2015 Inactive Amaryl 2 mg tablet RxNorm: 517929 1 Tablet(s) PO QD 07/07/20152015 Inactive pramipexole 1 mg tablet RxNorm: 566640 1 Tablet(s) PO Q PM for restless legs--replaces requip 07/05/2015 08/03/2015 Inactive ropinirole 2 mg tablet RxNorm: 704163 TAKE ONE TABLET BY MOUTH TWICE DAILY 05/09/2015 09/14/2015 Inactive Diflucan 100 mg tablet RxNorm: 770849 1 Tablet(s) PO QD 03/30/2015 Inactive propranolol 40 mg tablet RxNorm: 368562 1 Tablet(s) PO BID 02/24/20 15 08/21/2015 Inactive [SAVINGS FOR UNINSURED PATIE NTS -- BIN:705220, PCN: ASPROD1, Group: AME08, ID# [id number], Process claim through MedImpact, for questions: . THIS IS NOT INSURANCE.] Flagyl 500 mg tablet RxNorm: 097713 1 Tablet(s) PO BID 02/03/201502/2015 Inactive Cipro 500 mg tablet RxNorm: 246869 1 Tablet(s) PO BID 02/03/201502/01 Inactive Carafate 1 gram tablet RxNorm: 103057 1 Tablet(s) PO QID make i nto slurry 02/03/2015 09/14/2015 Inactive ondansetron HCl 4 mg tablet RxNorm: 955039 1 Tablet(s) PO Q4H as needed for nausea 12/29/2014 01/04/2016 Inactive Diflucan 100 mg tablet RxNorm: 775206 1 Tablet(s) PO QD 12/29/2014 Inactive Keflex 500 mg capsule RxNorm: 798039 1 Capsule(s) PO TID 12/29/2014 1 03/09/2014 Inactive omeprazole 40 mg capsule,delayed release RxNorm: 604188 1 Capsu le(s) PO BID 12/27/2014 12/21/2015 Inactive [SAVINGS FOR UNINSUR ED PATIENTS -- BIN:295209, PCN: ASPROD1, Group: AME08, ID# [id number], Process claim through MedImpact, for questions: . THIS IS NOT INSURANCE.] ropinirole 2 mg tablet RxNorm: 616317 1 Tablet(s) PO BID 09/29/2014 0 03/27/2015 Inactive [SAVINGS FOR UNINSURED PATIENTS -- BIN:0 16668, PCN: ASPROD1, Group: AME08, ID# [id number], Process claim through MedImpact, for questions: . THIS IS NOT INSURANCE.] buspirone 5 mg tablet RxNorm: 154000 1 Tablet(s) PO TID 09/17/2014 Inactive ropinirole 2 mg tablet RxNorm: 299295 1 Tablet(s) PO BID 09/02/2014 0 09/28/2014 Inactive [SAVINGS FOR UNINSURED PATIENTS -- BIN:0 96823, PCN: ASPROD1, Group: AME08, ID# [id number], Process claim through MedImpact, for questions: . THIS IS NOT INSURANCE.] Zyrtec 10 mg tablet RxNorm: 9182802 1 Tablet(s) PO QD 09/02/201412/02 Inactive propranolol 40 mg tablet RxNorm: 809951 1 Tablet(s) PO BID 07/21/19 15 02/23/2015 Inactive [SAVINGS FOR UNINSURED PATIE NTS -- BIN:272708, PCN: ASPROD1, Group: AME08, ID# [id number], Process claim through MedImpact, for questions: . THIS IS NOT INSURANCE.] ropinirole 2 mg tablet RxNorm: 418786 1 Tablet(s) PO QHS 05/14/2014 0 09/01/2014 Inactive [SAVINGS FOR UNINSURED PATIENTS -- BIN:0 20419, PCN: ASPROD1, Group: AME08, ID# [id number], Process claim through MedImpact, for questions: . THIS IS NOT INSURANCE.] cyclobenzaprine 10 mg tablet RxNorm: 700951 1 Tablet(s) PO QHS for spasm 04/06/2014 09/01/2014 Inactive ipratropium-albuterol 0.5 mg-3 mg(2.5 mg base)/3 mL ne bulization soln RxNorm: 1648116 1 Unit Dose INH Q4H 03/16/2014 No Stop Date Active [SAVINGS FOR UNINSURED PATIENTS -- BIN:569323, PCN: ASPROD1, Group: AME08, ID# [id number], Process claim through MedImpact, for questions: . THIS IS NOT INSURANCE.] prednisone 20 mg tablet RxNorm: 924900 1 Tablet(s) PO BID 03/09/2014 03/15/2014 Inactive [SAVINGS FOR UNINSURED PATIENTS -- BIN:0 06267, PCN: ASPROD1, Group: AME08, ID# [id number], Process claim through MedImp[employer], for questions: . THIS IS NOT INSURANCE.] ipratropium-albuterol 0.5 mg-3 mg(2.5 mg base)/3 mL ne bulization soln RxNorm: 1342892 1 Unit Dose INH Q4H 03/09/2014 03/15/2014 Inactive [SAVINGS FOR UNINSURED PATIENTS -- BIN:411844, PCN: ASPROD1, Group: AME08, ID# [id number], Process claim through MedImpact, for questions: . THIS IS NOT INSURANCE.] Levaquin 500 mg tablet RxNorm: 721163 1 Tablet(s) PO QD 03/09/2014 Inactive [SAVINGS FOR UNINSURED PATIENTS -- BIN:0 13394, PCN: ASPROD1, Group: AME08, ID# [id number], Process claim through MedImpact, for questions: . THIS IS NOT INSURANCE.] Carafate 1 gram tablet RxNorm: 579425 1 Tablet(s) PO AC & HS ma ke into slurry 02/09/2014 09/01/2014 Inactive [SAVINGS FOR UNINSUR ED PATIENTS -- BIN:774483, PCN: ASPROD1, Group: AME08, ID# [id number], Process claim through MedImpact, for questions: . THIS IS NOT INSURANCE.] Fioricet 50 mg-300 mg-40 mg capsule RxNorm: 5275966 1-2 Capsule(s) PO Q4H as needed for headache --max of 6 a day 02/09/2014 09/01/2014 Inactive [SAVINGS FOR UNINSURED PATIENTS -- BIN:402674, PCN: ASPROD1, Group: AME08, ID# [id number], Process claim through MedImpact, for questions: . THIS IS NOT INSURANCE.] propranolol 40 mg tablet RxNorm: 426033 1 Tablet(s) PO BID 12/08/19 14 06/04/2014 Inactive [SAVINGS FOR UNINSURED PATIE NTS -- BIN:176006, PCN: ASPROD1, Group: AME08, ID# [id number], Process claim through MedImpact, for questions: . THIS IS NOT INSURANCE.] buspirone 5 mg tablet RxNorm: 299707 1 Tablet(s) PO TID 12/02/2013 Inactive omeprazole 40 mg capsule,delayed release RxNorm: 725440 1 Capsu le(s) PO BID 11/25/2013 11/19/2014 Inactive [SAVINGS FOR UNINSUR ED PATIENTS -- BIN:026339, PCN: ASPROD1, Group: AME08, ID# [id number], Process claim through MedImpact, for questions: . THIS IS NOT INSURANCE.] ropinirole 2 mg tablet RxNorm: 441491 1 Tablet(s) PO QHS 11/10/2013 0 05/08/2014 Inactive [SAVINGS FOR UNINSURED PATIENTS -- BIN:0 39150, PCN: ASPROD1, Group: AME08, ID# [id number], Process claim through MedImpact, for questions: . THIS IS NOT INSURANCE.] Cipro 500 mg tablet RxNorm: 238476 1 Tablet(s) PO BID 10/21/201312/03 Inactive [SAVINGS FOR UNINSURED PATIENTS -- BIN:0 25695, PCN: ASPROD1, Group: AME08, ID# [id number], Process claim through MedImpact, for questions: . THIS IS NOT INSURANCE.] hydroxyzine HCl 25 mg tablet RxNorm: 294647 1 Tablet(s) PO Q4-6 H as needed 10/05/2013 01/04/2016 Inactive [SAVINGS FOR UNINSUR ED PATIENTS -- BIN:028988, PCN: ASPROD1, Group: AME08, ID# [id number], Process claim through MedImpact, for questions: . THIS IS NOT INSURANCE.] triamcinolone acetonide 0.1 % topical cream RxNorm: 6721068 Appl ication TOP BID 10/05/2013 09/01/2014 Inactive [SAVINGS FOR UNINSUR ED PATIENTS -- BIN:363012, PCN: ASPROD1, Group: AME08, ID# [id number], Process claim through MedImpact, for questions: . THIS IS NOT INSURANCE.] albuterol sulfate HFA 90 mcg/actuation aerosol inhaler RxNor m: 9110148 2 Puff(s) INH Q4H as needed for cough 10/01/2013 12/22/2013 Inactive [MAKSIM INGS FOR UNINSURED PATIENTS -- BIN:620460, PCN: ASPROD1, Group: AME08, ID# [id number], Process claim through MedImpact, for questions: . THIS IS NOT INSURANCE.] propranolol 40 mg tablet RxNorm: 590956 1 Tablet(s) PO BID 09/02/19 14 11/29/2013 Inactive [SAVINGS FOR UNINSURED PATIE NTS -- BIN:468637, PCN: ASPROD1, Group: AME08, ID# [id number], Process claim through MedImpact, for questions: . THIS IS NOT INSURANCE.] propranolol 40 mg tablet RxNorm: 715861 1 Tablet(s) PO BID 08/05/19 14 08/31/2013 Inactive [SAVINGS FOR UNINSURED PATIE NTS -- BIN:733714, PCN: ASPROD1, Group: AME08, ID# [id number], Process claim through MedImpact, for questions: . THIS IS NOT INSURANCE.] Toprol XL 50 mg tablet,extended release RxNorm: 297514 1 Tablet (s) PO QHS 07/23/2013 08/03/2013 Inactive Macrobid 100 mg capsule RxNorm: 528947 1 Capsule(s) PO BID 07/04/19 14 07/09/2013 Inactive Toprol XL 50 mg tablet,extended release RxNorm: 552743 1 Tablet (s) PO QHS 05/28/2013 06/26/2013 Inactive ciprofloxacin 500 mg tablet RxNorm: 495488 1 Tablet(s) PO BID 05/2706/02/2013 Inactive Bystolic 5 mg tablet RxNorm: 590426 1 Tablet(s) PO QD 05/27/201305/03 Inactive ropinirole 2 mg tablet RxNorm: 821534 1 Tablet(s) PO QHS 04/22/2013 0 11/09/2013 Inactive Cipro 250 mg tablet RxNorm: 200831 1 Tablet(s) PO BID 04/06/201311/2013 Inactive ropinirole 2 mg tablet RxNorm: 261577 1 Tablet(s) PO QHS 02/17/2013 0 04/21/2013 Inactive Amaryl 2 mg tablet RxNorm: 243496 1 Tablet(s) PO QAM 11/11/201211/10 Inactive Amaryl 2 mg tablet RxNorm: 597842 1 Tablet(s) PO QAM 11/11/201204/05 Inactive omeprazole 40 mg capsule,delayed release RxNorm: 833710 1 Capsu le(s) PO BID 08/14/2012 08/08/2013 Inactive Bystolic 5 mg tablet RxNorm: 506251 1 Tablet(s) PO QD 08/14/201205/03 Inactive propranolol 60 mg tablet RxNorm: 329695 Tablet(s) PO TAKE 1 TAB LET TWICE DAILY 08/01/2012 09/01/2012 Inactive Bystolic 5 mg tablet RxNorm: 850191 1 Tablet(s) PO QD 07/21/201207/02 Inactive Bystolic 5 mg tablet RxNorm: 223206 1 Tablet(s) PO QD 07/21/201207/03 Inactive Prilosec 40 mg capsule,delayed release RxNorm: 530593 1 Capsule (s) PO BID 06/24/2012 07/21/2012 Inactive buspirone 10 mg tablet RxNorm: 662561 1 Tablet(s) PO TID 05/08/2012 0 05/23/2016 Inactive Valium 10 mg tablet RxNorm: 071205 1 Tablet(s) PO BID 04/02/201207/03 Inactive Endocet 10 mg-325 mg tablet RxNorm: 9874536 1 Tablet(s) PO QID 03/0607/21/2012 Inactive as needed for severe pain Valium 10 mg tablet RxNorm: 375758 1 Tablet(s) PO BID 02/27/2012 No S top Date Active Endocet 10 mg-325 mg tablet RxNorm: 0078429 1 Tablet(s) PO QID 02/0203/27/2012 Inactive as needed for severe pain Endocet 10 mg-325 mg tablet RxNorm: 7275091 1 Tablet(s) PO QID 01/0302/26/2012 Inactive as needed for severe pain Valium 10 mg tablet RxNorm: 355912 1 Tablet(s) PO BID 01/29/2012 No S top Date Active Protonix 40 mg tablet,delayed release RxNorm: 015780 1 Tablet(s ) PO QD 01/28/2012 07/21/2012 Inactive metformin ER 500 mg tablet,extended release 24 hr RxNorm: 86 0977 1 Tablet(s) PO QD 12/26/2011 07/20/2012 Inactive Trazadone 150 mg Tablet RxNorm: 1 Tablet(s) PO QHS prn sleep 1 04/23/2012 Inactive Endocet 10 mg-325 mg tablet RxNorm: 4787229 1 Tablet(s) PO QID 12/0301/24/2012 Inactive as needed for severe pain Nexium 40 mg capsule,delayed release RxNorm: 243316 1 Capsule(s ) PO QD 12/26/2011 01/27/2012 Inactive Symbicort 160 mcg-4.5 mcg/actuation HFA Aerosol Inhaler RxNo rm: 7581550 2 Puff(s) INH BID 12/04/2011 07/21/2012 Inactive Endocet 10 mg-325 mg tablet RxNorm: 1050739 1 Tablet(s) PO QID 11/0312/25/2011 Inactive as needed for severe pain metformin ER 500 mg tablet,extended release 24 hr RxNorm: 86 0977 1 Tablet(s) PO QD 11/20/2011 12/19/2011 Inactive metformin ER 500 mg tablet,extended release 24 hr RxNorm: 86 0977 1 Tablet(s) PO QD 11/20/2011 11/19/2011 Inactive amitriptyline 100 mg tablet RxNorm: 503175 Tablet(s) PO QHS 1 a nd 1/2 tabs QHS 11/12/2011 11/13/2011 Inactive Valium 10 mg tablet RxNorm: 924883 1 Tablet(s) PO BID 11/09/2011 No S top Date Active Endocet 10 mg-325 mg tablet RxNorm: 1427432 1 Tablet(s) PO QID 10/0211/14/2011 Inactive as needed for severe pain Aricept 10 mg Tab RxNorm: 491754 1 Tablet(s) PO QD 10/05/2011 013 Inactive Valium 10 mg tablet RxNorm: 903698 1 Tablet(s) PO BID 10/05/2011 No S top Date Active Endocet 10 mg-325 mg Tab RxNorm: 0994463 1 Tablet(s) PO QID 012 10/09/2011 Inactive as needed for severe pain Aricept 10 mg Tab RxNorm: 022799 1 Tablet(s) PO QD 08/14/2011 012 Inactive Endocet 10 mg-325 mg Tab RxNorm: 1590585 1 Tablet(s) PO QID 012 08/31/2011 Inactive as needed for severe pain Valium 10 mg Tab RxNorm: 684206 1 Tablet(s) PO BID 08/02/2011 No Stop Date Active propranolol 60 mg tablet RxNorm: 694245 1 Tablet(s) PO BID 07/26/19 12 09/11/2011 Inactive amitriptyline 100 mg tablet RxNorm: 881349 Tablet(s) PO QHS 1 a nd /2 tabs QHS 06/20/2011 09/11/2011 Inactive buspirone 10 mg tablet RxNorm: 679302 1 Tablet(s) PO BID 06/18/2011 0 09/15/2011 Inactive propranolol 60 mg Tab RxNorm: 651809 1 Tablet(s) PO BID 06/18/2011 Inactive gabapentin 800 mg Tab RxNorm: 104254 1 Tablet(s) PO BID 06/18/2011 Inactive ropinirole 2 mg tablet RxNorm: 756076 1 Tablet(s) PO QHS 05/29/2011 0 08/26/2011 Inactive trimethoprim 100 mg Tab RxNorm: 207438 1 Tablet(s) PO QHS 05/29/2011 07/21/2012 Inactive Endocet 10 mg-325 mg Tab RxNorm: 5077145 1 Tablet(s) PO QID 012 2011 Inactive as needed for severe pain Valium 10 mg Tab RxNorm: 313870 1 Tablet(s) PO QHS N eed to take med as prescribed. this is a 40 day RX. No early fills. 05/17/2011 05/20/2018 Inactive propranolol 60 mg Tab RxNorm: 001258 1 Tablet(s) PO BID 04/16/2011 Inactive Neurontin 800 mg Tab RxNorm: 029498 1 Tablet(s) PO QHS 04/05/201103/2011 Inactive Endocet 10 mg-325 mg Tab RxNorm: 1835227 1 Tablet(s) PO QID 012 05/02/2011 Inactive as needed for severe pain oxycodone-acetaminophen 10 mg-325 mg tablet RxNorm: 3977363 1 Ta blet(s) PO Q4H 03/28/2011 05/19/2012 Inactive Valium 10 mg Tab RxNorm: 606877 1 Tablet(s) PO QHS 03/28/2011 012 Inactive buspirone 10 mg Tab RxNorm: 685012 1 Tablet(s) PO BID 03/27/201106/02 Inactive propranolol 60 mg Tab RxNorm: 874897 1 Tablet(s) PO BID 03/19/2011 Inactive Klor-Con M20 20 mEq Tab RxNorm: 2053544 1 Tablet(s) PO QD 03/19/2011 07/21/2012 Inactive Aricept 10 mg Tab RxNorm: 874382 1 Tablet(s) PO QD 02/27/2011 012 Inactive propranolol 60 mg Tab RxNorm: 999326 1 Tablet(s) PO BID 02/19/2011 Inactive omeprazole 40 mg capsule,delayed release RxNorm: 507372 1 Capsu le(s) PO BID 01/24/2011 05/23/2011 Inactive clindamycin 300 mg capsule RxNorm: 121998 1 Capsule(s) PO TID 01/2402/02/2011 Inactive propranolol 60 mg Tab RxNorm: 025195 1 Tablet(s) PO BID 01/22/2011 No Stop Date Active nystatin 100,000 unit/g Topical Cream RxNorm: 599402 Applicatio n TOP BID 01/15/2011 01/14/2011 Inactive to rash for 2-4 week s Diflucan 200 mg Tab RxNorm: 615660 1 Tablet(s) PO QD 01/15/201101/28 Inactive buspirone 10 mg Tab RxNorm: 873045 1 Tablet(s) PO BID 01/08/201103/05 Inactive Valium 10 mg Tab RxNorm: 932868 1 Tablet(s) PO QHS 01/05/2011 012 Inactive Diflucan 200 mg Tab RxNorm: 264065 1 Tablet(s) PO QD 01/01/201101/14 Inactive Diflucan 200 mg Tab RxNorm: 954098 1 Tablet(s) PO QD 12/18/201012/31 Inactive Valium 10 mg Tab RxNorm: 790097 1 Tablet(s) PO QHS 12/12/2010 011 Inactive Diflucan 200 mg Tab RxNorm: 453755 1 Tablet(s) PO QD 12/07/201012/18 Inactive Aricept 10 mg Tab RxNorm: 507977 1 Tablet(s) PO QD 11/20/2010 011 Inactive ropinirole 1 mg Tab RxNorm: 070296 1 Tablet(s) PO QHS 11/16/201005/03 Inactive enalapril maleate 5 mg Tab RxNorm: 877814 1 Tablet(s) PO QD 011 05/20/2018 Inactive buspirone 10 mg Tab RxNorm: 952759 1 Tablet(s) PO BID 11/16/201012/02 Inactive Valium 10 mg Tab RxNorm: 909586 1 Tablet(s) PO QHS 11/07/2010 011 Inactive Pyridium 100 mg Tab RxNorm: 9960164 1 Tablet(s) PO TID 11/02/201004/2010 Inactive Macrobid 100 mg Cap RxNorm: 0168077 1 Capsule(s) PO BID 11/02/2010 Inactive buspirone 10 mg Tab RxNorm: 683852 1 Tablet(s) PO QHS 10/18/201005/02 Inactive propranolol 60 mg Tab RxNorm: 188893 1 Tablet(s) PO BID 09/18/2010 Inactive Valium 10 mg Tab RxNorm: 841469 1 Tablet(s) PO QHS 09/05/2010 011 Inactive Aricept 10 mg Tab RxNorm: 600967 1 Tablet(s) PO QD 08/14/2010 011 Inactive Valium 10 mg Tab RxNorm: 018890 1 Tablet(s) PO QHS 06/26/2010 011 Inactive ropinirole 1 mg Tab RxNorm: 529287 1 Tablet(s) PO QHS 06/19/201010/02 Inactive omeprazole 40 mg Cap, delayed release RxNorm: 953263 1 Capsule( s) PO QD 06/07/2010 10/04/2010 Inactive Endocet 10 mg-325 mg Tab RxNorm: 5192478 1 Tablet(s) PO QID as needed for severe pain 06/07/2010 03/07/2011 Inactive Endocet 10 mg-325 mg Tab RxNorm: 5095857 1 Tablet(s) PO QID as needed for severe pain 05/04/2010 06/02/2010 Inactive Valium 10 mg Tab RxNorm: 318206 1 Tablet(s) PO QHS 05/01/2010 011 Inactive propranolol 60 mg Tab RxNorm: 150377 1 Tablet(s) PO BID 04/03/2010 Inactive Valium 10 mg Tab RxNorm: 438207 1 Tablet(s) PO QHS 03/28/2010 011 Inactive omeprazole 40 mg Cap, Delayed Release RxNorm: 606647 1 Capsule( s) PO QD 03/28/2010 06/06/2010 Inactive Endocet 10 mg-325 mg Tab RxNorm: 8058051 1 Tablet(s) PO QID prn ari n 03/27/2010 05/20/2018 Inactive Valium 10 mg Tab RxNorm: 601872 1 Tablet(s) PO QHS 02/20/2010 011 Inactive Diflucan 100 mg Tab RxNorm: 499565 1 Tablet(s) PO BID 01/23/2010 1203/2009 Inactive Diflucan 100 mg Tab RxNorm: 955474 1 Tablet(s) PO BID 01/05/201001/02 Inactive Aricept 10 mg Tab RxNorm: 277498 1 Tablet(s) PO QD 12/01/2009 011 Inactive OxyContin 20 mg 12 hr Tab RxNorm: 2222104 1 Tablet(s) PO BID 200904/05/2010 Inactive oxycodone-acetaminophen 10 mg-325 mg Tab RxNorm: 8145924 1 Table t(s) PO Q4H 11/22/2009 11/26/2009 Inactive Phenergan 25 mg Tab RxNorm: 909460 1 Tablet(s) PO PRN MIGRAINE 11/0303/07/2011 Inactive Demerol 100 mg Tab RxNorm: 530690 1 Tablet(s) PO PRN MIGRAINE 11/2203/07/2011 Inactive Oxycodone-Acetaminophen 10 mg-325 mg Tab RxNorm: 0814581 1 Table t(s) PO Q4H 10/11/2009 10/15/2009 Inactive Percocet 10 mg-325 mg Tab RxNorm: 6963225 1 Tablet(s) PO Q4H 200910/24/2009 Inactive propranolol 60 mg Tab RxNorm: 169222 1 Tablet(s) PO BID 08/29/2009 Inactive Valium 10 mg Tab RxNorm: 804535 1 Tablet(s) PO QHS 08/16/2009 010 Inactive Keflex 500 mg Cap RxNorm: 255082 1 Capsule(s) PO BID 07/25/200907/31 Inactive Hydroxyzine 25 mg Tab RxNorm: 242273 1 Tablet(s) PO TID 07/25/2009 Inactive Prednisone 20 mg Tab RxNorm: 730347 1 Tablet(s) PO BID 07/25/2009 Inactive Demerol 100 mg Tab RxNorm: 438601 1 Tablet(s) PO PRN MIGRAINE 07/25 No Stop Date Active Ropinirole 1 mg Tab RxNorm: 439763 1 Tablet(s) PO HS 07/20/200902/14 Inactive Valium 10 mg Tab RxNorm: 181894 1 Tablet(s) PO QHS 07/18/2009 010 Inactive Endocet 10 mg-325 mg Tab RxNorm: 3735473 1 Tablet(s) PO TID 010 07/07/2009 Inactive Demerol 100 mg Tab RxNorm: 741375 1 Tablet(s) PO PRN MIGRAINE 06/08 No Stop Date Active Ropinirole 1 mg Tab RxNorm: 495833 1 Tablet(s) PO HS 05/16/200907/14 Inactive ipratropium-albuterol 0.5 mg-3 mg(2.5 mg base)/3 mL ne bulization soln RxNorm: 6582941 1 Unit Dose INH Q4H as needed No Start Date Active MagOx 400 mg (241.3 mg magnesium) tablet RxNorm: 181801 1 Table t(s) PO BID No Start Date Active Vitamin B12 1000mcg Tablet RxNorm: 1 Tablet(s) PO QD No Start Date Active Vitamin D3 5,000 unit tablet RxNorm: 180521 1 Tablet(s) PO QD No Star t Date Active Tylenol Arthritis Pain 650 mg tablet,extended release RxNorm : 9583569 1 Tablet(s) PO Q4H No Start Date Active Lotrimin AF 2 % topical powder RxNorm: 631521 1 Application TOP BID No Start Date Active enalapril maleate 5 mg Tab RxNorm: 426409 1 Tablet(s) PO QD No Star t Date 07/20/2012 Inactive Demerol 100 mg Tab RxNorm: 499638 Tablet(s) PO PRN MIGRAINE No Star t Date 06/02/2009 Inactive metformin 500 mg tablet RxNorm: 526604 1 Tablet(s) PO QD No Start D ate 04/05/2013 Inactive Breo Ellipta 100 mcg-25 mcg/dose powder for inhalation RxNor m: 5413984 1 Puff(s) INH BID No Start Date 01/04/2016 Inactive Mag-Oxide 400 mg Tab RxNorm: 780722 1 Tablet(s) PO QD No Start Date 0 07/21/2012 Inactive Cipro 500 mg Tab RxNorm: 847775 1 Tablet(s) PO QD No Start Date 04/05 Inactive Ativan 0.5 mg tablet RxNorm: 856544 1 Tablet(s) PO TID as needed No Start Date 05/06/2019 Inactive melatonin 3 mg tablet RxNorm: 518486 2 Tablet(s) PO QHS No Start Da te 08/19/2018 Inactive buspirone 10 mg Tab RxNorm: 055273 1 Tablet(s) PO QD No Start Date Inactive sucralfate 100 mg/mL Oral Susp RxNorm: 388602 2 Teaspoon(s) PO QID No Start Date 07/21/2012 Inactive hydrocodone 5 mg-acetaminophen 325 mg tablet RxNorm: 506939 1 Tablet(s) PO Q4H as needed No Start Date 08/19/2018 Inactive Amaryl 2 mg tablet RxNorm: 850879 1 Tablet(s) PO BID No Start Date Inactive OxyContin 20 mg 12 hr Tab RxNorm: 6870903 1 Tablet(s) PO BID No Sta rt Date 11/27/2009 Inactive propranolol 40 mg tablet RxNorm: 839547 1 Tablet(s) PO QID No Start Date 01/19/2018 Inactive Trazadone 150 mg Tablet RxNorm: 1-2 Tablet(s) PO QHS prn sleep No Start Date 08/09/2010 Inactive propranolol 60 mg Tab RxNorm: 059554 1/2 Tablet(s) PO BID No Start Date 01/21/2011 Inactive insulin NPH and regular human subcutaneous RxNorm: 8228103 subcu taneous No Start Date 11/20/2018 Inactive Ativan 0.5 mg tablet RxNorm: 932108 1 Tablet(s) PO QID No Start Date 06/18/2016 Inactive Vasotec 5 mg Tab RxNorm: 367405 1 Tablet(s) PO BID No Start Date 06/2011 Inactive Toprol XL 50 mg tablet,extended release RxNorm: 917580 1 Tablet (s) PO BID No Start Date 04/05/2013 Inactive Ativan 0.5 mg tablet RxNorm: 090234 1 Tablet(s) PO TID No Start Date 05/25/2016 Inactive Klor-Con M20 20 mEq Tab RxNorm: 1349468 1 Tablet(s) PO QD No Start Date 03/19/2011 Inactive sumatriptan 100 mg tablet RxNorm: 145986 1 Tablet(s) PO at headache onset--repeat in 2hrs if remains No Start Date 07/21/2012 Inactive propranolol 60 mg Tab RxNorm: 955109 1 Tablet(s) PO BID No Start Da te 08/28/2009 Inactive Cholestyramine Light 4 gram Oral Powder RxNorm: 3772838 1 Unit Dose PO QD in water No Start Date 07/21/2012 Inactive nystatin 100,000 unit/g Topical Powder RxNorm: 215362 Applicati on TOP BID No Start Date 07/21/2012 Inactive vitamin [id number] acid sublingual RxNorm: sublingual No Start Date 07/05/2013 Inactive cyclobenzaprine 5 mg tablet RxNorm: 409111 1/2-1 Tablet (s) PO TID as needed for muscle spasm No Start Date 07/18/2017 Inactive tramadol 50 mg tablet RxNorm: 705553 2 Tablet(s) PO TID as need ed for pain No Start Date 09/01/2014 Inactive aspirin 81 mg Tab RxNorm: 479461 1 Tablet(s) PO QOD No Start Date 04/2013 Inactive Vitamin B12 1000mcg Tablet RxNorm: 1 Tablet(s) PO QD No Start Date 07/18/2017 Inactive cholestyramine (with sugar) 4 gram oral powder RxNorm: 92628 3 1 Unit(s) PO QD as needed No Start Date 05/20/2018 Inactive ProAir HFA 90 mcg/Actuation Aerosol Inhaler RxNorm: 578680 2 Puff(s) INH Q4H prn shortness of breath No Start Date 07/21/2012 Inactive pravastatin 10 mg Tab RxNorm: 773583 1 Tablet(s) PO QD No Start Date 07/21/2012 Inactive gabapentin 800 mg Tab RxNorm: 824279 1 Tablet(s) PO BID No Start Da te 06/03/2011 Inactive Endocet 10 mg-325 mg Tab RxNorm: 6411091 1 Tablet(s) PO TID No Star t Date 06/02/2009 Inactive Naproxen 500 mg Tab RxNorm: 865893 1 Tablet(s) PO BID No Start Date 0 04/05/2010 Inactive Valium 10 mg Tab RxNorm: 029093 1 Tablet(s) PO BID No Start Date 07/04 Inactive enalapril maleate 5 mg Tab RxNorm: 053401 1 Tablet(s) PO QD No Star t Date 11/15/2010 Inactive doxepin 10 mg capsule RxNorm: 1573409 2 Capsule(s) PO QHS No Start Date 09/17/2018 Inactive MS Contin 15 mg Tab RxNorm: 075113 1 Tablet(s) PO BID No Start Date 0 09/18/2010 Inactive buspirone 5 mg tablet RxNorm: 331611 1 Tablet(s) PO TID No Start Da te 12/01/2013 Inactive [place] 3 Fish Oil Cap RxNorm: 1 Capsule(s) PO QD No Start Date 07/03 Inactive enalapril maleate 5 mg Tab RxNorm: 471522 1/2 Tablet(s) PO QD No St art Date 03/07/2011 Inactive Lyrica 75 mg capsule RxNorm: 918480 1 Capsule(s) PO QHS No Start Da te 02/08/2014 Inactive Lopressor 100 mg tablet RxNorm: 296004 1 Tablet(s) PO BID No Start Date 06/08/2018 Inactive Lantus Solostar U-100 Insulin 100 unit/mL (3 mL) subcu taneous pen RxNorm: 371684 45 Unit(s) SQ QAM No Start Date 05/20/2018 Inactive aspirin 81 mg tablet RxNorm: 291035 1 Tablet(s) PO QD No Start Date 0 09/14/2015 Inactive diltiazem CD 240 mg capsule,extended release 24 hr RxNorm: 8 37903 1 Capsule(s) PO QD No Start Date 05/25/2019 Inactive insulin NPH isophane U-100 human subcutaneous RxNorm: 776433 beckwith bcutaneous No Start Date 04/20/2019 Inactive sumatriptan 100 mg tablet RxNorm: 838261 1 Tablet(s) PO at headache onset. May repeat 1 in two hours if headache remains. Max of 2 per 24 hours No Start Date 04/01/2018 Inactive gabapentin 300 mg capsule RxNorm: 030356 1 Capsule(s) PO QHS No Sta rt Date 02/04/2018 Inactive Topamax 25 mg Tab RxNorm: 255333 Oral No Start Date 03/07/2011 In active Senokot-S 8.6 mg-50 mg Tab RxNorm: 8130008 1 Tablet(s) PO QD No Sta rt Date 03/07/2011 Inactive metformin ER 500 mg 24 hr tablet,extended release RxNorm: 18 48727 1 Tablet(s) PO QD No Start Date 05/20/2018 Inactive Symbicort 80 mcg-4.5 mcg/actuation HFA Aerosol Inhaler RxNor m: 9507570 2 Puff(s) INH BID No Start Date 04/05/2013 Inactive metoprolol tartrate 25 mg tablet RxNorm: 932580 1 Tablet(s) PO BID No Start Date 05/20/2019 Inactive propranolol 60 mg Tab RxNorm: 352102 1/2 Tablet(s) PO BID No Start Date 07/21/2012 Inactive metformin ER 500 mg 24 hr tablet,extended release RxNorm: 18 62426 2 Tablet(s) PO QD No Start Date 12/16/2017 Inactive Insulin Syringe 1 mL 29 gauge x 1/2" RxNorm: 2 s yringes daily with insulin Dx: E11.65 No Start Date 10/07/2018 Inactive Amitriptyline 75 mg Tab RxNorm: 404646 1 Tablet(s) PO QHS No Start Date 10/23/2009 Inactive donepezil 10 mg Tab RxNorm: 408888 1 Tablet(s) PO QD No Start Date Inactive Lantus Solostar U-100 Insulin 100 unit/mL (3 mL) subcu taneous pen RxNorm: 289056 36 Unit(s) SQ QAM No Start Date 12/24/2017 Inactive Miacalcin 200 unit/Actuation Nasal [place] Aerosol RxNorm: 261 204 1 [place] NASAL QD Alternate nostrils each day No Start Date 04/05/2010 Inactive Amitriptyline 150 mg Tab RxNorm: 704775 1 Tablet(s) PO QHS No Start Date 01/04/2010 Inactive Bystolic 5 mg tablet RxNorm: 752812 1 Tablet(s) PO QD No Start Date 0 08/13/2012 Inactive Aricept 10 mg Tab RxNorm: 574070 1 Tablet(s) PO QD No Start Date 11/03 Inactive Lantus Solostar U-100 Insulin 100 unit/mL (3 mL) subcu taneous pen RxNorm: 713492 50 Unit(s) SQ QAM No Start Date 08/27/2018 Inactive albuterol sulfate 2.5 mg/3 mL (0.083 %) Neb Solution RxNorm: 852274 1 Unit Dose INH QID as needed No Start Date 08/23/2015 Inactive Symbicort 160 mcg-4.5 mcg/actuation HFA Aerosol Inhaler RxNo rm: 2289899 2 Puff(s) INH BID No Start Date 12/03/2011 Inactive Savella 50 mg Tab RxNorm: 410652 1 Tablet(s) PO BID No Start Date 04/2010 Inactive amitriptyline 100 mg Tab RxNorm: 123892 1 1/2 Tablet(s) PO QHS No S tart Date 06/19/2011 Inactive nystatin 100,000 unit/g Topical Cream RxNorm: 847114 Ap plication TOP BID to rash for 2-4 weeks No Start Date 01/14/2011 Inactive Trelegy Ellipta 100 mcg-62.5 mcg-25 mcg powder for inhalatio n RxNorm: 2015075 1 Puff(s) INH QD No Start Date 12/16/2017 Inactive Lyrica 150 mg capsule RxNorm: 865386 1 Capsule(s) PO QHS No Start D ate 12/04/2015 Inactive sennosides 8.6 mg tablet RxNorm: 491694 1 Tablet(s) PO BID No Start Date 09/07/2018 Inactive metformin ER 500 mg tablet,extended release 24 hr RxNorm: 86 0975 1 Tablet(s) PO QD No Start Date 10/22/2017 Inactive Fish Oil 1,000 mg Cap RxNorm: 1 Capsule(s) PO QD No Start Date 06/2011 Inactive Zyrtec 10 mg Tab RxNorm: 2403077 1 Tablet(s) PO QD No Start Date 07/03 Inactive albuterol sulfate HFA 90 mcg/actuation aerosol inhaler RxNor m: 0981764 2 Puff(s) INH Q4H as needed for cough No Start Date 09/30/2013 Inactive trazodone 150 mg tablet RxNorm: 824098 1 Tablet(s) PO QHS No Start Date 07/21/2012 Inactive Spiriva with HandiHaler 18 mcg & inhalation capsules RxNorm: 810135 1 Capsule(s) INH QD No Start Date 04/05/2013 Inactive Coreg 3.125 mg Tab RxNorm: 606194 1 Tablet(s) PO BID No Start Date Inactive Phenergan 25 mg Tab RxNorm: 040976 Tablet(s) PO PRN MIGRAINE No Sta rt Date 11/21/2009 Inactive Vitamin D 50,000 unit Cap RxNorm: 3005115 1 Capsule(s) PO QW No Sta rt Date 03/07/2011 Inactive Januvia 100 mg tablet RxNorm: 021785 1 Tablet(s) PO QD No Start Date 10/25/2015 Inactive Eliquis 5 mg tablet RxNorm: 1801667 1 Tablet(s) PO BID No Start Date 08/19/2018 Inactive Advair Diskus 500 mcg-50 mcg/Dose for Inhalation RxNorm: 455439 1 INH BID No Start Date 07/21/2012 Inactive Vitamin D3 5,000 unit tablet RxNorm: 893549 1 Tablet(s) PO QD No St art Date 07/18/2017 Inactive Amaryl 2 mg tablet RxNorm: 287814 1 Tablet(s) PO QD No Start Date 06/2015 Inactive Actos 30 mg tablet RxNorm: 098001 1 Tablet(s) PO QD No Start Date Inactive promethazine 25 mg tablet RxNorm: 285830 1 Tablet(s) PO Q4H prn N/V No Start Date 07/21/2012 Inactive ProAir HFA 90 mcg/actuation Aerosol Inhaler RxNorm: 215543 2 Puff(s) INH Q4H prn dyspnea No Start Date 07/21/2012 Inactive Dexilant 60 mg Capsule RxNorm: 206165 1 Capsule(s) PO QD No Start D ate 01/27/2012 Inactive Lantus Solostar U-100 Insulin 100 unit/mL (3 mL) subcu taneous pen RxNorm: 317059 38 Unit(s) SQ QAM No Start Date 05/20/2018 Inactive Valium 10 mg Tab RxNorm: 369164 1 Tablet(s) PO QHS AND PRN No Start Date 10/24/2009 Inactive ZOFRAN ODT 8 mg disintegrating tablet RxNorm: 840124 1 Tablet(s ) PO Q6H No Start [...] Date S ervice Location MICROALBUMIN URINE RANDOM 97124 MICRL MG/L 14.9 MG/L Unknown MICROALBUMIN URINE RANDOM 74271 XM.ALB/CRE 6.1 MG/GCR Unknown MICROALBUMIN URINE RANDOM 26330 CREAT MG/D 243 MG/DL Unknown MICROALBUMIN URINE RANDOM 44084 CRE/100 2.43 G/L 03/05 Unknown PROTEIN/CREAT URINE WITH RATIO 93082|07515 PROT R U 14 MG/D L 04/01/2014 Unknown PROTEIN/CREAT URINE WITH RATIO 98761|43653 CREAT R U 254 MG/ DL 04/01/2014 Unknown PROTEIN/CREAT URINE WITH RATIO 84382|07722 XRATIO P/C 55 MG/ G 04/01/2014 Unknown URINALYSIS 23530 PROTEIN UR NEG 04/28/2010 Unknown URINALYSIS 47713 HEMGLBN UR NEG 04/28/2010 Unknown URINALYSIS 23845 GLUCOSE UR NEG 04/28/2010 Unknown URINALYSIS 45025 KETONES UR NEG 04/28/2010 Unknown URINALYSIS 62902 PH U 5.5 04/28/2010 Unknown URINALYSIS 25837 SP GR U 1.025 04/28/2010 Unknown URINALYSIS 76275 BILRUBN UR NEG 04/28/2010 Unknown URINALYSIS 64652 LEUKO UR 2+ 04/28/2010 Unknown URINALYSIS 02933 NITRITE UR NEG 04/28/2010 Unknown MICR CUL? [id number] WBC/HPF 6-10 04/28/2010 Unknown MICR CUL? [id number] RBC/HPF 0-5 04/28/2010 Unknown MICR CUL? [id number] HYAL CAST 16-25 04/28/2010 Unknown MICR CUL? [id number] SP TO YOLIE? NO 04/28/2010 Unknown MICR CUL? [id number] APPEAR UR NORMAL 04/28/2010 Unknown MICR CUL? [id number] SQ EPI/LPF FEW 04/28/2010 Unknown Procedures Procedure Codes Date URINALYSIS NONAUTO W/O SCOPE CPT-4: 03978 04/16/2019 URINE CULTURE/ COLONY COUNT CPT-4: 77214 04/16/2019 CEFTRIAXONE SODIUM INJECTION CPT-4: J0696 04/16/2019 THER/PROPH/DIAG INJ SC/IM CPT-4: 02231 04/16/2019 DRAIN/INJECT JOINT/BURSA CPT-4: 29699 01/22/2019 TRIAMCINOLONE ACET INJ NOS CPT-4: J3301 01/22/2019 DEXAMETHASONE SODIUM PHOS CPT-4: J1100 01/22/2019 URINE CULTURE/ COLONY COUNT CPT-4: 81369 01/07/2019 URINALYSIS NONAUTO W/O SCOPE CPT-4: 81085 01/07/2019 CEFTRIAXONE SODIUM INJECTION CPT-4: J0696 01/07/2019 THER/PROPH/DIAG INJ SC/IM CPT-4: 63545 01/07/2019 FLU VACC PRSV FREE INC ANTIG 65 AND OLDER CPT-4: 97684 12/24/2018 FLU VACC PRSV FREE INC ANTIG 65 AND OLDER CPT-4: 94545 12/24/2018 ADMIN INFLUENZA VIRUS VAC CPT-4: G0008 12/24/2018 THER/PROPH/DIAG INJ SC/IM CPT-4: 24506 11/04/2018 KETOROLAC TROMETHAMINE INJ CPT-4: J1885 11/04/2018 PROMETHAZINE HCL INJECTION CPT-4: J2550 11/04/2018 PPPS, subseq visit CPT-4: G0439 09/18/2018 THER/PROPH/DIAG INJ SC/IM CPT-4: 18199 04/01/2018 KETOROLAC TROMETHAMINE INJ CPT-4: J1885 04/01/2018 PROMETHAZINE HCL INJECTION CPT-4: J2550 04/01/2018 URINE CULTURE/ COLONY COUNT CPT-4: 15676 03/17/2018 URINALYSIS NONAUTO W/O SCOPE CPT-4: 82388 03/17/2018 FLU VACC PRSV FREE INC ANTIG 65 AND OLDER CPT-4: 89235 12/17/2017 PNEUMOCOCCAL VACC 23 RANDALL IM CPT-4: 10035 12/17/2017 ADMIN INFLUENZA VIRUS VAC CPT-4: G0008 12/17/2017 ADMIN PNEUMOCOCCAL VACCINE CPT-4: G0009 12/17/2017 PPPS, subseq visit CPT-4: G0439 09/17/2017 THER/PROPH/DIAG INJ SC/IM CPT-4: 82855 08/26/2017 KETOROLAC TROMETHAMINE INJ CPT-4: J1885 08/26/2017 PROMETHAZINE HCL INJECTION CPT-4: J2550 08/26/2017 URINALYSIS NONAUTO W/O SCOPE CPT-4: 32547 07/19/2017 URINE CULTURE/ COLONY COUNT CPT-4: 34474 07/19/2017 CEFTRIAXONE SODIUM INJECTION CPT-4: J0696 07/19/2017 THER/PROPH/DIAG INJ SC/IM CPT-4: 78395 07/19/2017 THER/PROPH/DIAG INJ SC/IM CPT-4: 54350 07/19/2017 TRIAMCINOLONE ACET INJ NOS CPT-4: J3301 07/19/2017 PRESCRIP TRANSMIT VIA ERX SY CPT-4: G8553 05/07/2017 PRESCRIP TRANSMIT VIA ERX SY CPT-4: G8553 02/22/2017 PRESCRIP TRANSMIT VIA ERX SY CPT-4: G8553 01/23/2017 FLU VACC PRSV FREE INC ANTIG 65 AND OLDER CPT-4: 52388 12/20/2016 PNEUMOCOCCAL VACC 13 RANDALL IM CPT-4: 29023 12/20/2016 ADMIN INFLUENZA VIRUS VAC CPT-4: G0008 12/20/2016 ADMIN PNEUMOCOCCAL VACCINE CPT-4: G0009 12/20/2016 URINALYSIS NONAUTO W/O SCOPE CPT-4: 74561 10/08/2016 URINE CULTURE/ COLONY COUNT CPT-4: 39510 10/08/2016 PRESCRIP TRANSMIT VIA ERX SY CPT-4: G8553 10/08/2016 PRESCRIP TRANSMIT VIA ERX SY CPT-4: G8553 09/19/2016 PRESCRIP TRANSMIT VIA ERX SY CPT-4: G8553 08/20/2016 PRESCRIP TRANSMIT VIA ERX SY CPT-4: G8553 02/29/2016 KETOROLAC TROMETHAMINE INJ CPT-4: J1885 02/02/2016 THER/PROPH/DIAG INJ SC/IM CPT-4: 01512 02/02/2016 PROMETHAZINE HCL INJECTION CPT-4: J2550 02/02/2016 PRESCRIP TRANSMIT VIA ERX SY CPT-4: G8553 02/02/2016 FLU VACC PRSV FREE INC ANTIG 65 AND OLDER CPT-4: 57824 01/05/2016 PPPS, subseq visit CPT-4: G0439 01/05/2016 ADMIN INFLUENZA VIRUS VAC CPT-4: G0008 01/05/2016 URINE CULTURE/ COLONY COUNT CPT-4: 47379 12/05/2015 URINALYSIS NONAUTO W/O SCOPE CPT-4: 29468 12/05/2015 PRESCRIP TRANSMIT VIA ERX SY CPT-4: G8553 12/05/2015 PRESCRIP TRANSMIT VIA ERX SY CPT-4: G8553 10/26/2015 URINALYSIS NONAUTO W/O SCOPE CPT-4: 36184 10/05/2015 URINE CULTURE/ COLONY COUNT CPT-4: 44499 10/05/2015 PRESCRIP TRANSMIT VIA ERX SY CPT-4: G8553 10/05/2015 MD SERVICE REQUIRED FOR PMD CPT-4: G0372 09/15/2015 PRESCRIP TRANSMIT VIA ERX SY CPT-4: G8553 09/15/2015 SPECIAL REPORTS OR FORMS CPT-4: 63827 08/25/2015 PRESCRIP TRANSMIT VIA ERX SY CPT-4: G8553 07/05/2015 URINALYSIS NONAUTO W/O SCOPE CPT-4: 58446 03/30/2015 ASSAY, GLUCOSE, BLOOD QUANT CPT-4: 11840 03/30/2015 URINE CULTURE/ COLONY COUNT CPT-4: 76128 03/30/2015 PRESCRIP TRANSMIT VIA ERX SY CPT-4: G8553 03/30/2015 PRESCRIP TRANSMIT VIA ERX SY CPT-4: G8553 02/03/2015 FLU VACC PRSV FREE INC ANTIG 65 AND OLDER CPT-4: 30952 12/29/2014 ADMIN INFLUENZA VIRUS VAC CPT-4: G0008 12/29/2014 PRESCRIP TRANSMIT VIA ERX SY CPT-4: G8553 12/29/2014 PRESCRIP TRANSMIT VIA ERX SY CPT-4: G8553 09/02/2014 PROTEIN/CREAT URINE WITH RATIO CPT-4: 45480|[id number] 5 MICROALBUMIN QUANTITATIVE CPT-4: 43602 04/01/2014 PRESCRIP TRANSMIT VIA ERX SY CPT-4: G8553 03/16/2014 PRESCRIP TRANSMIT VIA ERX SY CPT-4: G8553 03/09/2014 THER/PROPH/DIAG INJ SC/IM CPT-4: 36095 03/01/2014 TRIAMCINOLONE ACET INJ NOS CPT-4: J3301 03/01/2014 PRESCRIP TRANSMIT VIA ERX SY CPT-4: G8553 02/09/2014 URINE CULTURE/ COLONY COUNT CPT-4: 62320 10/30/2013 URINALYSIS NONAUTO W/O SCOPE CPT-4: 46663 10/21/2013 URINE CULTURE/ COLONY COUNT CPT-4: 29765 10/21/2013 DESTRUCT PREMALG LESION (Cryosurgery) CPT-4: 95905 PRESCRIP TRANSMIT VIA ERX SY CPT-4: G8553 10/05/2013 URINALYSIS NONAUTO W/O SCOPE CPT-4: 49718 08/04/2013 URINE CULTURE/ COLONY COUNT CPT-4: 72457 08/04/2013 PRESCRIP TRANSMIT VIA ERX SY CPT-4: G8553 08/04/2013 THER/PROPH/DIAG INJ SC/IM CPT-4: 25542 07/13/2013 TRIAMCINOLONE ACET INJ NOS CPT-4: J3301 07/13/2013 PRESCRIP TRANSMIT VIA ERX SY CPT-4: G8553 05/27/2013 URINALYSIS NONAUTO W/O SCOPE CPT-4: 45951 05/25/2013 URINE CULTURE/ COLONY COUNT CPT-4: 60664 05/25/2013 THER/PROPH/DIAG INJ SC/IM CPT-4: 90251 05/04/2013 VITAMIN B12 INJECTION CPT-4: J3420 05/04/2013 THER/PROPH/DIAG INJ SC/IM CPT-4: 10239 04/17/2013 VITAMIN B12 INJECTION CPT-4: J3420 04/17/2013 THER/PROPH/DIAG INJ SC/IM CPT-4: 52785 04/17/2013 METHYLPREDNISOLONE 40 MG INJ CPT-4: J1030 04/17/2013 TRIAMCINOLONE ACET INJ NOS CPT-4: J3301 04/17/2013 URINALYSIS NONAUTO W/O SCOPE CPT-4: 44137 04/06/2013 URINE CULTURE/ COLONY COUNT CPT-4: 49515 04/06/2013 PRESCRIP TRANSMIT VIA ERX SY CPT-4: G8553 04/06/2013 KETOROLAC TROMETHAMINE INJ CPT-4: J1885 06/25/2012 PROMETHAZINE HCL INJECTION CPT-4: J2550 06/25/2012 THER/PROPH/DIAG INJ SC/IM CPT-4: 25551 06/25/2012 THER/PROPH/DIAG INJ SC/IM CPT-4: 16100 06/24/2012 METHYLPREDNISOLONE 40 MG INJ CPT-4: J1030 06/24/2012 TRIAMCINOLONE ACET INJ NOS CPT-4: J3301 06/24/2012 URINE CULTURE/ COLONY COUNT CPT-4: 67610 06/24/2012 THER/PROPH/DIAG INJ SC/IM CPT-4: 95118 05/20/2012 KETOROLAC TROMETHAMINE INJ CPT-4: J1885 05/20/2012 THER/PROPH/DIAG INJ SC/IM CPT-4: 39426 05/20/2012 PROMETHAZINE HCL INJECTION CPT-4: J2550 05/20/2012 DRAIN/INJECT JOINT/BURSA CPT-4: 45264 02/13/2012 METHYLPREDNISOLONE 40 MG INJ CPT-4: J1030 02/13/2012 TRIAMCINOLONE ACET INJ NOS CPT-4: J3301 02/13/2012 THER/PROPH/DIAG INJ SC/IM CPT-4: 83297 11/14/2011 METHYLPREDNISOLONE 40 MG INJ CPT-4: J1030 11/14/2011 TRIAMCINOLONE ACET INJ NOS CPT-4: J3301 11/14/2011 THER/PROPH/DIAG INJ SC/IM CPT-4: 48784 09/12/2011 KETOROLAC TROMETHAMINE INJ CPT-4: J1885 09/12/2011 THER/PROPH/DIAG INJ SC/IM CPT-4: 97589 08/09/2011 METHYLPREDNISOLONE 40 MG INJ CPT-4: J1030 08/09/2011 TRIAMCINOLONE ACET INJ NOS CPT-4: J3301 08/09/2011 URINE CULTURE/ COLONY COUNT CPT-4: 33696 07/03/2011 URINE CULTURE/ COLONY COUNT CPT-4: 75756 06/04/2011 THER/PROPH/DIAG INJ SC/IM CPT-4: 01029 05/03/2011 METHYLPREDNISOLONE 40 MG INJ CPT-4: J1030 05/03/2011 TRIAMCINOLONE ACET INJ NOS CPT-4: J3301 05/03/2011 URINALYSIS NONAUTO W/O SCOPE CPT-4: 03692 01/24/2011 URINE CULTURE/ COLONY COUNT CPT-4: 53965 01/24/2011 FLUZONE, 5ML (Medicare) CPT-4: Q2038 01/02/2011 ADMIN INFLUENZA VIRUS VAC CPT-4: G0008 01/02/2011 ASSAY, GLUCOSE, BLOOD QUANT CPT-4: 39092 12/07/2010 URINE CULTURE/ COLONY COUNT CPT-4: 30342 11/02/2010 THER/PROPH/DIAG INJ SC/IM CPT-4: 17362 10/18/2010 METHYLPREDNISOLONE 40 MG INJ CPT-4: J1030 10/18/2010 TRIAMCINOLONE ACET INJ NOS CPT-4: J3301 10/18/2010 TRIAMCINOLONE ACET INJ NOS CPT-4: J3301 05/11/2010 METHYLPREDNISOLONE 40 MG INJ CPT-4: J1030 05/11/2010 THER/PROPH/DIAG INJ SC/IM CPT-4: 98342 05/11/2010 TRIAMCINOLONE ACET INJ NOS CPT-4: J3301 02/09/2010 METHYLPREDNISOLONE 40 MG INJ CPT-4: J1030 02/09/2010 THER/PROPH/DIAG INJ SC/IM CPT-4: 38836 02/09/2010 MD SERVICE REQUIRED FOR PMD CPT-4: G0372 02/09/2010 FLU VACCINE 3 YRS & > IM UP 64 CPT-4: 38524 0 PNEUMOCOCCAL VACC 23 RANDALL IM CPT-4: 59141 12/07/2009 ADMIN INFLUENZA VIRUS VAC CPT-4: G0008 12/07/2009 ADMIN PNEUMOCOCCAL VACCINE CPT-4: G0009 12/07/2009 TRIAMCINOLONE ACET INJ NOS CPT-4: J3301 05/26/2009 THER/PROPH/DIAG INJ SC/IM CPT-4: 13792 05/26/2009 METHYLPREDNISOLONE 80 MG INJ CPT-4: J1040 [...] 1: 114/72 Code: 8480-6 BMI: 37.8 Code: 73048-2 Heart Rate 1: 72 bpm Height: 5'3" [...] 1: 106/68 Code: 8480-6 BMI: 35.7 Code: 68040-4 Heart Rate 1: 72 bpm Height: 5'4" Respiratory Rate: 20 bpm SpO2: 98% Tempera ture: 36.7 (C) / 98.0 (F) Weight: 208 lbs 04/16/2018 Blood Pressure 1: 132/82 Code: 8480-6 BMI: 37.9 Code: 72429-7 Heart Rate 1: 72 bpm Height: 5'4" Respiratory Rate: 20 bpm SpO2: 96% Tempera ture: 37.1 (C) / 98.8 (F) Weight: 221 lbs 04/01/2018 Blood Pressure 1: 150/90 Code: 8480-6 Heart Rate 1: 72 bpm Respiratory Rate: 22 bpm SpO2: 95% Temperature: 36.4 (C) / 97.6 (F) We ight: 216 lbs 03/06/2018 Blood Pressure 1: 126/78 Code: 8480-6 BMI: 37.4 Code: 04077-1 Heart Rate 1: 68 bpm Height: 5'4" [...] ight: 222 lbs 12/25/2017 BMI: 37.8 Code: 86912-2 Heart Rate 1: 76 bpm Height: 5 '4" Respiratory Rate: 20 bpm SpO2: 96% Temperature: 37.3 (C) / 99.2 (F) Weight: 220 lbs 12/17/2017 Blood Pressure 1: 132/78 Code: 8480-6 BMI: 37.2 Code: 74540-3 Heart Rate 1: 88 bpm Height: 5'4" Respiratory Rate: 20 bpm SpO2: 96% Tempera ture: 37.3 (C) / 99.2 (F) Weight: 217 lbs 10/30/2017 Blood Pressure 1: 114/68 Code: 8480-6 BMI: 36.4 Code: 05287-3 Heart Rate 1: 72 bpm Height: 5'4" Respiratory Rate: 22 bpm SpO2: 96% Tempera ture: 36.8 (C) / 98.2 (F) Weight: 212 lbs 10/23/2017 Blood Pressure 1: 124/78 Code: 8480-6 Heart Rate 1: 72 bpm Respiratory Rate: 24 bpm SpO2: 94% Temperature: 36.6 (C) / 97.9 (F) We ight: 212 lbs 09/17/2017 Blood Pressure 1: 128/82 Code: 8480-6 BMI: 37.4 Code: 40916-8 Heart Rate 1: 72 bpm Height: 5'4" Respiratory Rate: 20 bpm SpO2: 96% Tempera ture: 37.0 (C) / 98.6 (F) Weight: 218 lbs 07/19/2017 Blood Pressure 1: 136/84 Code: 8480-6 BMI: 36.6 Code: 21098-5 Heart Rate 1: 88 bpm Height: 5'4" Respiratory Rate: 20 bpm SpO2: 97% Tempera ture: 36.7 (C) / 98.0 (F) Weight: 213 lbs 05/29/2017 Blood Pressure 1: 136/82 Code: 8480-6 BMI: 36.7 Code: 11157-9 Heart Rate 1: 72 bpm Height: 5'4" Respiratory Rate: 20 bpm SpO2: 97% Tempera ture: 36.9 (C) / 98.4 (F) Weight: 214 lbs 05/07/2017 Blood Pressure 1: 122/80 Code: 8480-6 BMI: 37.1 Code: 86929-6 Heart Rate 1: 80 bpm Height: 5'4" Respiratory Rate: 24 bpm SpO2: 96% Tempera ture: 36.1 (C) / 97.0 (F) Weight: 216 lbs 03/18/2017 BMI: 36.7 Code: 50046-4 Heart Rate 1: 80 bpm Height: 5 '4" Respiratory Rate: 22 bpm SpO2: 95% Temperature: 36.9 (C) / 98.4 (F) Weight: 214 lbs 02/27/2017 Blood Pressure 1: 146/94 Code: 8480-6 BMI: 36.6 Code: 12954-1 Heart Rate 1: 76 bpm Height: 5'4" Respiratory Rate: 22 bpm SpO2: 97% Tempera ture: 36.6 (C) / 97.9 (F) Weight: 213 lbs 02/22/2017 Blood Pressure 1: 126/90 Code: 8480-6 BMI: 36.4 Code: 49816-6 Heart Rate 1: 84 bpm Height: 5'4" Respiratory Rate: 22 bpm SpO2: 95% Tempera ture: 36.9 (C) / 98.4 (F) Weight: 212 lbs 01/23/2017 Blood Pressure 1: 146/82 Code: 8480-6 BMI: 37.6 Code: 83865-6 Heart Rate 1: 96 bpm Height: 5'4" Respiratory Rate: 20 bpm SpO2: 96% Tempera ture: 36.9 (C) / 98.4 (F) Weight: 219 lbs 12/20/2016 Blood Pressure 1: 126/70 Code: 8480-6 BMI: 37.2 Code: 22748-9 Heart Rate 1: 76 bpm Height: 5'4" Respiratory Rate: 22 bpm SpO2: 95% Tempera ture: 36.6 (C) / 97.8 (F) Weight: 217 lbs 10/08/2016 Blood Pressure 1: 128/82 Code: 8480-6 BMI: 36.9 Code: 52238-1 Heart Rate 1: 76 bpm Height: 5'4" Respiratory Rate: 20 bpm SpO2: 95% Tempera ture: 37.0 (C) / 98.6 (F) Weight: 215 lbs 09/19/2016 Blood Pressure 1: 144/78 Code: 8480-6 BMI: 37.8 Code: 26322-9 Heart Rate 1: 76 bpm Height: 5'4" Respiratory Rate: 22 bpm SpO2: 95% Tempera ture: 37.0 (C) / 98.6 (F) Weight: 220 lbs 08/20/2016 Blood Pressure 1: 140/86 Code: 8480-6 BMI: 37.4 Code: 23408-8 Heart Rate 1: 80 bpm Height: 5'4" Respiratory Rate: 20 bpm SpO2: 95% Tempera ture: 36.9 (C) / 98.4 (F) Weight: 218 lbs 06/19/2016 Blood Pressure 1: 124/78 Code: 8480-6 BMI: 37.8 Code: 55497-4 Heart Rate 1: 74 bpm Height: 5'4" Respiratory Rate: 24 bpm SpO2: 96% Tempera ture: 36.9 (C) / 98.4 (F) Weight: 220 lbs 06/04/2016 Blood Pressure 1: 124/78 Code: 8480-6 BMI: 38.8 Code: 23680-2 Heart Rate 1: 72 bpm Height: 5'4" Respiratory Rate: 24 bpm SpO2: 95% Tempera ture: 36.8 (C) / 98.2 (F) Weight: 226 lbs 05/02/2016 Blood Pressure 1: 136/90 Code: 8480-6 BMI: 37.6 Code: 97552-4 Heart Rate 1: 72 bpm Height: 5'4" Respiratory Rate: 24 bpm SpO2: 96% Tempera ture: 36.9 (C) / 98.4 (F) Weight: 219 lbs 04/03/2016 Blood Pressure 1: 12678 Code: 8480-6 BMI: 38.1 Code: 01502-5 Heart Rate 1: 72 bpm Height: 5'4" Respiratory Rate: 22 bpm SpO2: 94% Tempera ture: 36.9 (C) / 98.4 (F) Weight: 222 lbs 02/29/2016 Blood Pressure 1: 132/78 Code: 8480-6 Heart Rate 1: 78 bpm Height: Respiratory Rate: 24 bpm SpO2: 95% Temperature: 36.4 (C) / 97.6 (F) We ight: 02/02/2016 Blood Pressure 1: 12478 Code: 8480-6 BMI: 37.6 Code: 86547-9 Heart Rate 1: 76 bpm Height: 5'4" Respiratory Rate: 20 bpm SpO2: 95% Tempera ture: 36.8 (C) / 98.2 (F) Weight: 219 lbs 01/05/2016 Blood Pressure 1: 126/70 Code: 8480-6 BMI: 37.1 Code: 65621-0 Heart Rate 1: 76 bpm Height: 5'4" Respiratory Rate: 20 bpm Temperature: 36 .6 (C) / 97.8 (F) Weight: 216 lbs 12/05/2015 Blood Pressure 1: 126/72 Code: 8480-6 BMI: 36.9 Code: 05437-6 Heart Rate 1: 92 bpm Height: 5'4" Respiratory Rate: 20 bpm Temperature: 36 .7 (C) / 98.1 (F) Weight: 215 lbs 10/26/2015 Blood Pressure 1: 142/80 Code: 8480-6 BMI: 36.4 Code: 62272-0 Heart Rate 1: 82 bpm Height: 5'4" Respiratory Rate: 24 bpm SpO2: 92% Tempera ture: 35.9 (C) / 96.7 (F) Weight: 212 lbs 10/05/2015 Blood Pressure 1: 136/82 Code: 8480-6 Heart Rate 1: 80 bpm Respiratory Rate: 18 bpm SpO2: 98% Temperature: 35.7 (C) / 96.3 (F) We ight: 214 lbs 09/15/2015 Blood Pressure 1: 11680 Code: 8480-6 BMI: 34.6 Code: 60495-2 Heart Rate 1: 76 bpm Height: 5'6" Respiratory Rate: 20 bpm Temperature: 36 .6 (C) / 97.9 (F) Weight: 211 lbs 08/24/2015 Blood Pressure 1: 124 Code: 8480-6 BMI: 34.1 Code: 79720-8 Heart Rate 1: 68 bpm Height: 5'6" Respiratory Rate: 20 bpm Temperature: 36 .8 (C) / 98.3 (F) Weight: 208 lbs 07/05/2015 Blood Pressure 1: 11478 Code: 8480-6 BMI: 33.9 Code: 08343-4 Heart Rate 1: 80 bpm Height: 5'6" Respiratory Rate: 20 bpm Temperature: 36 .6 (C) / 97.9 (F) Weight: 207 lbs 06/06/2015 Blood Pressure 1: 122/78 Code: 8480-6 BMI: 34.1 Code: 84005-2 Heart Rate 1: 76 bpm Height: 5'6" Respiratory Rate: 24 bpm SpO2: 96% Tempera ture: 36.4 (C) / 97.6 (F) Weight: 208 lbs 05/23/2015 Blood Pressure 1: 124/78 Code: 8480-6 Heart Rate 1: 76 bpm Respiratory Rate: 24 bpm SpO2: 93% Temperature: 36.8 (C) / 98.2 (F) We ight: 212 lbs 05/05/2015 Blood Pressure 1: 136/80 Code: 8480-6 BMI: 35.4 Code: 79481-3 Heart Rate 1: 76 bpm Height: 5'6" Respiratory Rate: 28 bpm Temperature: 37 .0 (C) / 98.6 (F) Weight: 216 lbs 03/30/2015 Blood Pressure 1: 132/86 Code: 8480-6 BMI: 35.2 Code: 96974-6 Heart Rate 1: 84 bpm Height: 5'6" Respiratory Rate: 24 bpm Temperature: 36 .7 (C) / 98.0 (F) Weight: 215 lbs 02/03/2015 Blood Pressure 1: 122/74 Code: 8480-6 BMI: 35.7 Code: 64692-5 Heart Rate 1: 84 bpm Height: 5'6" Respiratory Rate: 20 bpm Temperature: 36 .9 (C) / 98.5 (F) Weight: 218 lbs 12/29/2014 Blood Pressure 1: 132/80 Code: 8480-6 BMI: 35.1 Code: 85028-8 Heart Rate 1: 80 bpm Height: 5'6" Respiratory Rate: 20 bpm Temperature: 36 .6 (C) / 97.8 (F) Weight: 214 lbs 09/02/2014 Blood Pressure 1: 128/92 Code: 8480-6 BMI: 34.7 Code: 12236-0 Heart Rate 1: 84 bpm Height: 5'6" Respiratory Rate: 26 bpm Temperature: 36 .8 (C) / 98.2 (F) Weight: 212 lbs 08/25/2014 Blood Pressure 1: 124/80 Code: 8480-6 BMI: 34.7 Code: 29251-7 Heart Rate 1: 78 bpm Height: 5'6" Respiratory Rate: 22 bpm SpO2: 97% Tempera ture: 36.6 (C) / 97.8 (F) Weight: 212 lbs 04/01/2014 Blood Pressure 1: 142/84 Code: 8480-6 BMI: 34.4 Code: 69982-1 Heart Rate 1: 74 bpm Height: 5'5" Respiratory Rate: 20 bpm Temperature: 36 .4 (C) / 97.6 (F) Weight: 207 lbs 03/16/2014 Blood Pressure 1: 142/90 Code: 8480-6 BMI: 34.6 Code: 76004-0 Heart Rate 1: 76 bpm Height: 5'5" Respiratory Rate: 24 bpm Temperature: 36 .5 (C) / 97.7 (F) Weight: 208 lbs 03/09/2014 Blood Pressure 1: 116/70 Code: 8480-6 BMI: 35.3 Code: 89741-5 Heart Rate 1: 72 bpm Height: 5'5" [...] 1: 128/86 Code: 8480-6 BMI: 34.3 Code: 50097-6 Heart Rate 1: 84 bpm Height: 5'5" Respiratory Rate: 20 bpm Temperature: 36 .7 (C) / 98.0 (F) Weight: 206 lbs 12/23/2013 Blood Pressure 1: 122/70 Code: 8480-6 BMI: 34.3 Code: 95984-4 Heart Rate 1: 68 bpm Height: 5'5" Respiratory Rate: 20 bpm Temperature: 36 .8 (C) / 98.2 (F) Weight: 206 lbs 10/05/2013 Blood Pressure 1: 118/76 Code: 8480-6 BMI: 34.1 Code: 57750-5 Heart Rate 1: 68 bpm Height: 5'5" Respiratory Rate: 20 bpm SpO2: 98% Tempera ture: 36.6 (C) / 97.9 (F) Weight: 205 lbs 08/04/2013 Blood Pressure 1: 126/82 Code: 8480-6 BMI: 33.3 Code: 70464-0 Heart Rate 1: 76 bpm Height: 5'5" Respiratory Rate: 20 bpm Temperature: 36 .8 (C) / 98.2 (F) Weight: 200 lbs 07/03/2013 Blood Pressure 1: 124/82 Code: 8480-6 BMI: 33.3 Code: 19039-5 Heart Rate 1: 72 bpm Height: 5'5" Respiratory Rate: 22 bpm Temperature: 36 .1 (C) / 97.0 (F) Weight: 200 lbs 05/27/2013 Blood Pressure 1: 126/82 Code: 8480-6 Heart Rate 1: 74 bpm Respiratory Rate: 20 bpm Temperature: 36.0 (C) / 96.8 (F) Weight: 199 lbs 04/06/2013 Blood Pressure 1: 118/80 Code: 8480-6 BMI: 35.2 Code: 21341-3 Heart Rate 1: 80 bpm Height: 5'4" Respiratory Rate: 20 bpm Temperature: 37 .4 (C) / 99.3 (F) Weight: 205 lbs 11/10/2012 Blood Pressure 1: 128/82 Code: 8480-6 Heart Rate 1: 84 bpm Respiratory Rate: 20 bpm Temperature: 36.7 (C) / 98.0 (F) Weight: 199 lbs 09/02/2012 Blood Pressure 1: 116/82 Code: 8480-6 BMI: 34.2 Code: 48795-8 Heart Rate 1: 88 bpm Height: 5'4" Respiratory Rate: 22 bpm Temperature: 36 .6 (C) / 97.8 (F) Weight: 199 lbs 08/04/2012 Blood Pressure 1: 128/74 Code: 8480-6 BMI: 34.0 Code: 22221-7 Heart Rate 1: 92 bpm Height: 5'4" Respiratory Rate: 20 bpm Temperature: 36 .4 (C) / 97.5 (F) Weight: 198 lbs 07/21/2012 Blood Pressure 1: 124/86 Code: 8480-6 Heart Rate 1: 116 bpm Respiratory Rate: 24 bpm Temperature: 36.8 (C) / 98.2 (F) 07/02/2012 Blood Pressure 1: 116/88 Code: 8480-6 BMI: 33.6 Code: 10129-0 Heart Rate 1: 76 bpm Height: 5'4" Respiratory Rate: 20 bpm Temperature: 36 .8 (C) / 98.3 (F) Weight: 196 lbs 06/24/2012 Blood Pressure 1: 124/80 Code: 8480-6 BMI: 34.3 Code: 07637-8 Heart Rate 1: 72 bpm Height: 5'4" SpO2: 96% Temperature: 36.3 (C) / 97.3 (F) Weight: 200 lbs 05/20/2012 Blood Pressure 1: 116/88 Code: 8480-6 BMI: 33.8 Code: 66211-8 Heart Rate 1: 80 bpm Height: 5'4" Respiratory Rate: 22 bpm Temperature: 36 .9 (C) / 98.4 (F) Weight: 197 lbs 05/08/2012 Blood Pressure 1: 128/86 Code: 8480-6 BMI: 33.8 Code: 25880-0 Heart Rate 1: 76 bpm Height: 5'4" Respiratory Rate: 26 bpm SpO2: 95% Tempera ture: 36.1 (C) / 97.0 (F) Weight: 197 lbs 04/22/2012 Blood Pressure 1: 106/64 Code: 8480-6 BMI: 33.8 Code: 85678-1 Heart Rate 1: 70 bpm Height: 5'4" Temperature: 36.1 (C) / 97.0 (F) Weight: 197 lbs 02/13/2012 Blood Pressure 1: 126/82 Code: 8480-6 BMI: 34.7 Code: 02246-8 Heart Rate 1: 64 bpm Height: 5'4" Respiratory Rate: 20 bpm Temperature: 36 .6 (C) / 97.8 (F) Weight: 202 lbs 01/28/2012 Blood Pressure 1: 116/80 Code: 8480-6 BMI: 34.7 Code: 73951-6 Heart Rate 1: 76 bpm Height: 5'4" Respiratory Rate: 20 bpm Temperature: 36 .8 (C) / 98.3 (F) Weight: 202 lbs 12/26/2011 Blood Pressure 1: 132/82 Code: 8480-6 BMI: 36.0 Code: 26547-9 Heart Rate 1: 68 bpm Height: 5'4" Respiratory Rate: 22 bpm Temperature: 36 .7 (C) / 98.0 (F) Weight: 210 lbs 11/14/2011 Blood Pressure 1: 124/80 Code: 8480-6 BMI: 36.4 Code: 84645-9 Heart Rate 1: 76 bpm Height: 5'4" Respiratory Rate: 20 bpm Temperature: 36 .8 (C) / 98.2 (F) Weight: 212 lbs 09/12/2011 Blood Pressure 1: 108/74 Code: 8480-6 BMI: 37.1 Code: 96372-0 Heart Rate 1: 72 bpm Height: 5'4" Respiratory Rate: 20 bpm Temperature: 37 .0 (C) / 98.6 (F) Weight: 216 lbs 08/15/2011 Blood Pressure 1: 122/80 Code: 8480-6 BMI: 36.9 Code: 60764-8 Heart Rate 1: 76 bpm Height: 5'4" Respiratory Rate: 20 bpm Temperature: 36 .2 (C) / 97.1 (F) Weight: 215 lbs 08/09/2011 Blood Pressure 1: 112/78 Code: 8480-6 BMI: 36.9 Code: 44406-7 Heart Rate 1: 68 bpm Height: 5'4" Respiratory Rate: 20 bpm Temperature: 36 .7 (C) / 98.0 (F) Weight: 215 lbs 07/03/2011 Blood Pressure 1: 140/94 Code: 8480-6 BMI: 36.2 Code: 40161-0 Heart Rate 1: 68 bpm Height: 5'4" Temperature: 36.0 (C) / 96.8 (F) Weight: 211 lbs 06/04/2011 Blood Pressure 1: 124/70 Code: 8480-6 BMI: 36.7 Code: 66965-4 Heart Rate 1: 68 bpm Height: 5'4" Respiratory Rate: 20 bpm Temperature: 36 .6 (C) / 97.9 (F) Weight: 214 lbs 05/03/2011 Blood Pressure 1: 130/76 Code: 8480-6 BMI: 36.4 Code: 80057-4 Heart Rate 1: 74 bpm Height: 5'5" Temperature: 36.2 (C) / 97.2 (F) Weight: 219 lbs 04/05/2011 Blood Pressure 1: 124/86 Code: 8480-6 BMI: 35.9 Code: 19128-9 Heart Rate 1: 76 bpm Height: 5'6" Respiratory Rate: 22 bpm Temperature: 36 .3 (C) / 97.3 (F) Weight: 219 lbs 03/08/2011 Blood Pressure 1: 112/78 Code: 8480-6 BMI: 35.1 Code: 99253-5 Heart Rate 1: 80 bpm Height: 5'6" Respiratory Rate: 26 bpm Temperature: 36 .9 (C) / 98.4 (F) Weight: 214 lbs 01/24/2011 Blood Pressure 1: 110/82 Code: 8480-6 BMI: 35.6 Code: 22045-9 Heart Rate 1: 80 bpm Height: 5'6" Temperature: 36.1 (C) / 97.0 (F) Weight: 217 lbs 01/02/2011 Blood Pressure 1: 106/72 Code: 8480-6 BMI: 35.6 Code: 77962-8 Heart Rate 1: 76 bpm Height: 5'6" [...] 1: 120/74 Code: 8480-6 BMI: 35.9 Code: 87896-8 Heart Rate 1: 72 bpm Height: 5'5" Temperature: 36.3 (C) / 97.4 (F) Weight: 216 lbs 09/19/2010 Blood Pressure 1: 124/80 Code: 8480-6 BMI: 35.4 Code: 69394-0 Heart Rate 1: 76 bpm Height: 5'5" [...] 1: 122/78 Code: 8480-6 BMI: 37.4 Code: 58771-1 Heart Rate 1: 84 bpm Height: 5'5" [...] follow up 10/26/2015 ER visit from at [facility] for COPD Exacerbation follow up 10/05/2015 ER Visit gait abnormality 09/15/2015 Patient requesting kelly pineda paperwork to be filled out disturbances of thinking 08/24/2015 follow up 07/05/2015 4wk fwup follow up 06/06/2015 [facility] cough 05/23/2015 follow up 05/05/2015 dyspnea 03/30/2015 [facility] needs new orde r for O2 abdominal pain 02/03/2015 cyst 12/29/2014 vs abscess follow up 09/02/2014 [facility] headache 08/25/2014 facial drooping follow up 04/01/2014 ER follow up 03/16/2014 1wk fwup follow up 03/09/2014 1mo fwup and bronchi tis fwup follow up 03/03/2014 2 day follow up 03/01/2014 ER follow up 02/09/2014 [facility] gastroesophageal reflux 12/23/2013 painful urination 10/30/2013 [...] up 08/04/2012 2wk fwup follow up 07/21/2012 [facility]--[facility] an sore throat 07/02/2012 headache 06/25/2012 [...] up 10/18/[address] Medrano last w [place], having increased allergy symptoms. Would like steroid [...] 1 month f/u follow up 12/07/[address] [facility], done with PT--finished about 2wks [...] Hypoxia[ICD10: R09.02] Diagnosis: Migraine[ICD10: G43.909] Belia MARTINEZ [facility] CPT-4: 05796 08/25/2019 ([id number]) OFFICE/OUTPATIENT VISIT EST Diagnosis: Yawning[ICD10: R06.89] Diagnosis: LION (obstructive sleep apnea)[ICD10: G47.33] Pattie REID DO [facility] CPT-4: 88535 08/10/2019 ([id number]) OFFICE/OUTPATIENT VISIT EST Diagnosis: Pelvic pain in female[ICD10: R10.2] Diagnosis: Left leg swelling[ICD10: M79.89] Diagnosis: Dyspnea[ICD10: R06.00] Diagnosis: Constipation[ICD10: K59.00] Pattie WICK [facility] CPT-4: 73259 08/04/2019 ([id number]) OFFICE/OUTPATIENT VISIT EST Diagnosis: Inspiratory stridor[ICD10: R06.1] Diagnosis: Diarrhea[ICD10: R19.7] [facility] 3 07/06/2019 ([id number]) OFFICE/OUTPATIENT VISIT EST Diagnosis: Left leg swelling[ICD10: M79.89] Diagnosis: Dyspnea[ICD10: R06.00] [facility] 9921 3 06/24/2019 ([id number]) OFFICE/OUTPATIENT VISIT EST Diagnosis: Acute bronchitis[ICD10: J20.9] Diagnosis: Colitis[ICD10: K52.9] [facility] 69673 06/16/2019 ([id number]) OFFICE/OUTPATIENT VISIT EST Diagnosis: Diarrhea[ICD10: R19.7] Diagnosis: Abdominal bloating[ICD10: R14.0] Belia Reid [facility] CPT- 4: 97930 06/08/2019 ([id number]) OFFICE/OUTPATIENT VISIT EST Diagnosis: Acute febrile illness[ICD10: R50.9] Diagnosis: Colitis[ICD10: K52.9] Belia Reid [facility] CPT-4: 89669 05/26/2019 ([id number]) OFFICE/OUTPATIENT VISIT EST Diagnosis: Chronic obstructive pulmonary disease, unspecified[ICD10: J44.9] Diagnosis: Pulmonary fibrosis[ICD10: J84.10] Diagnosis: Intermittent stridor[ICD10: R06.1] Diagnosis: Muscle weakness[ICD10: M62.81] Belia HSUQUELINE Bushra Mayda ZACHARYNDOTONIEL [employer] [facility] CPT-4: 70605 05/13/2019 ([id number]) OFFICE/OUTPATIENT VISIT EST Diagnosis: Stridor[ICD10: R06.1] Diagnosis: COUGH[ICD10: R05] Beliahanna BRUNSON BushraMayda LUISER [employer] [facility] CPT-4: 12763 05/06/2019 ([id number]) OFFICE/OUTPATIENT VISIT EST Diagnosis: Stridor[ICD10: R06.1] Diagnosis: Muscle, jerky movements (uncontrolled)[ICD10: G25.5] Belia Zacharynilson BRUNSON BushraMayda LUISER [employer] [facility] CPT-4: 24183 04/29/2019 ([id number]) OFFICE/OUTPATIENT VISIT EST Diagnosis: Upper respiratory infection[ICD10: J06.9] Diagnosis: Flank pain[ICD10: R10.9] Diagnosis: Weight gain[ICD10: R63.5] Pattie Floresjuan BRUNSON BushraMyada ZACHARY NDESudhir [employer] [facility] CPT-4: 31089 04/16/2019 ([id number]) OFFICE/OUTPATIENT VISIT EST Diagnosis: Generalized pruritus[ICD10: L29.9] Belia SALAZAR SMayda ZACHARYNDER [employer] [facility] CPT-4: 44276 04/08/2019 ([id number]) OFFICE/OUTPATIENT VISIT EST Diagnosis: Acute bursitis of left shoulder[ICD10: M75.52] Diagnosis: Cervicalgia[ICD10: M54.2] Diagnosis: Chest wall pain[ICD10: R07.89] Belia BRUNSON Bushra Mayda ANUSHKA [employer] [facility] CPT-4: 64258 01/22/2019 ([id number]) OFFICE/OUTPATIENT VISIT EST Diagnosis: Abdominal pain[ICD10: R10.9] Diagnosis: Pyelonephritis[ICD10: N12] Pattie Nortonarely Shi [facility] CPT-4: 56206 01/07/2019 ([id number]) OFFICE/OUTPATIENT VISIT EST Diagnosis: Low back pain[ICD10: M54.5] Diagnosis: Left lumbar radiculopathy[ICD10: M54.16] Diagnosis: Left flank pain[ICD10: R10.9] Diagnosis: Left lower quadrant pain[ICD10: R10.32] Diagnosis: FLU VACCINE[ICD10: Z23] Belia [facility] CPT-4: 20352 12/24/2018 ([id number]) OFFICE/OUTPATIENT VISIT EST Diagnosis: Migraine, unspecified, not intractable, without status migrainosus[ICD10: G43.909] Diagnosis: Fibromyalgia[ICD10: M79.7] Belia DOMINGUEZ [facility] CPT-4: 70404 11/20/2018 ([id number]) OFFICE/OUTPATIENT VISIT EST Diagnosis: Migraine, unspecified, intractable, without status migrainosus[ICD10: G43.919] Diagnosis: Acute sinusitis, unspecified[ICD10: J01.90] Pattie REID DO [facility] CPT-4: 70881 11/04/2018 ([id number]) OFFICE/OUTPATIENT VISIT EST Diagnosis: Pain in left wrist[ICD10: M25.532] Diagnosis: Other dorsalgia[ICD10: M54.89] Pattie REID DO [facility] CPT-4: 73975 09/08/2018 ([id number]) OFFICE/OUTPATIENT VISIT EST Diagnosis: Acute stress reaction[ICD10: F43.0] Diagnosis: Pruritus, unspecified[ICD10: L29.9] 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, 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] Belia REID [facility] CPT-4: 05941 08/20/2018 ([id number]) OFFICE/OUTPATIENT VISIT EST Diagnosis: Hypotension due to drugs[ICD10: I95.2] Diagnosis: Paroxysmal atrial fibrillation[ICD10: I48.0] Diagnosis: Localized edema[ICD10: R60.0] Belia REID [facility] CPT-4: 89024 06/19/2018 ([id number]) OFFICE/OUTPATIENT VISIT EST Diagnosis: Generalized hyperhidrosis[ICD10: R61] Diagnosis: Essential (primary) hypertension[ICD10: I10] Diagnosis: Supraventricular tachycardia[ICD10: I47.1] Belia REID DO [facility] CPT-4: 58588 06/09/2018 ([id number]) OFFICE/OUTPATIENT VISIT EST Diagnosis: Stridor[ICD10: R06.1] Diagnosis: Dependence on supplemental oxygen[ICD10: Z99.81] Diagnosis: Weakness[ICD10: R53.1] Diagnosis: Supraventricular tachycardia[ICD10: I47.1] Belia REID DO [facility] CPT-4: 09747 05/21/2018 ([id number]) OFFICE/OUTPATIENT VISIT EST Diagnosis: Cervical disc disorder with radiculopathy, unspecified cervical region[ICD10: M50.10] Belia REID [facility] CPT-4: 85217 04/16/2018 ([id number]) OFFICE/OUTPATIENT VISIT EST Diagnosis: Migraine, unspecified, intractable, without status migrainosus[ICD10: G43.919] Diagnosis: Fibromyalgia[ICD10: M79.7] Pattie DOMINGUEZ [facility] CPT-4: 53639 04/01/2018 ([id number]) NURSE/OUTPATIENT VISIT EST Diagnosis: Hematuria, unspecified[ICD10: R31.9] Diagnosis: Dysuria[ICD10: R30.0] Belia REID [facility] CPT-4: 14634 03/17/2018 ([id number]) OFFICE/OUTPATIENT VISIT EST Diagnosis: Erythema intertrigo[ICD10: L30.4] Diagnosis: Chronic obstructive pulmonary disease with (acute) exacerbation[ICD10: J44.1] Diagnosis: Type 2 diabetes mellitus with hyperglycemia[ICD10: E11.65] Belia REID DO [facility] CPT-4: 75413 03/06/2018 ([id number]) OFFICE/OUTPATIENT VISIT EST Diagnosis: Cervicalgia[ICD10: M54.2] Pattiekedar AMBRIZ [facility] CPT-4: 72215 02/05/2018 ([id number]) OFFICE/OUTPATIENT VISIT EST Diagnosis: Candidiasis of skin and nail[ICD10: B37.2] Diagnosis: Cervicalgia[ICD10: M54.2] Pattie AMBRIZ [facility] CPT-4: 63479 01/20/2018 ([id number]) OFFICE/OUTPATIENT VISIT EST Diagnosis: Pain in thoracic spine[ICD10: M54.6] Diagnosis: Radiculopathy, thoracic region[ICD10: M54.14] Belia REID [facility] CPT-4: 86884 12/25/2017 ([id number]) OFFICE/OUTPATIENT VISIT EST Diagnosis: Pain in thoracic spine[ICD10: M54.6] Diagnosis: Other muscle spasm[ICD10: M62.838] Diagnosis: FLU VACCINE[ICD10: Z23] Diagnosis: PNEUMOCOCCAL VACCINE[ICD10: Z23] Belia REID [facility] CPT-4: 68507 12/17/2017 ([id number]) OFFICE/OUTPATIENT VISIT EST Diagnosis: Chronic obstructive pulmonary disease with (acute) exacerbation[ICD10: J44.1] Belia REID [facility] CPT- 4: 14720 10/30/2017 ([id number]) OFFICE/OUTPATIENT VISIT EST Diagnosis: Chronic obstructive pulmonary disease with acute lower respiratory infection[ICD10: J44.0] Diagnosis: Mild intermittent asthma with (acute) exacerbation[ICD10: J45.21] Belia REID [facility] CPT-4: 10166 10/23/2017 ([id number]) NURSE/OUTPATIENT VISIT EST Diagnosis: Migraine, unspecified, not intractable, without status migrainosus[ICD10: G43.909] Belia REID [facility] CPT - 4: 66062 08/26/2017 ([id number]) OFFICE/OUTPATIENT VISIT EST Diagnosis: Urinary tract infection, site not specified[ICD10: N39.0] Diagnosis: Encounter for screening for osteoporosis[ICD10: Z13.820] Diagnosis: Encounter for screening mammogram for malignant neoplasm of breast[ICD10: Z12.31] Diagnosis: Acute bronchitis, unspecified[ICD10: J20.9] Pattie REID DO [facility] CPT-4: 46933 07/19/2017 ([id number]) OFFICE/OUTPATIENT VISIT EST Diagnosis: Rash and other nonspecific skin eruption[ICD10: R21] Pattie REID DO [facility] CPT-4: 95917 05/29/2017 ([id number]) OFFICE/OUTPATIENT VISIT EST Diagnosis: Diarrhea, unspecified[ICD10: R19.7] Diagnosis: Tinea corporis[ICD10: B35.4] Diagnosis: Tinea cruris[ICD10: B35.6] Diagnosis: Migraine, unspecified, not intractable, without status migrainosus[ICD10: G43.909] Belia REID DO [facility] CPT - 4: 01473 05/07/2017 ([id number]) OFFICE/OUTPATIENT VISIT EST Diagnosis: Stridor[ICD10: R06.1] Diagnosis: Chronic obstructive pulmonary disease with (acute) exacerbation[ICD10: J44.1] Belia REID DO [facility] CPT- 4: 62736 03/18/2017 ([id number]) OFFICE/OUTPATIENT VISIT EST Diagnosis: Type 2 diabetes mellitus with hyperglycemia[ICD10: E11.65] Belia REID DO [facility] CPT-4: 53783 02/27/2017 OFFICE/OUTPATIENT VISIT EST Diagnosis: Type 2 diabetes mellitus with hyperglycemia[ICD10: E11.65] Pattie REID DO [facility] CPT-4: 40134 02/22/2017 ([id number]) OFFICE/OUTPATIENT VISIT EST Diagnosis: Urinary tract infection, site not specified[ICD10: N39.0] Diagnosis: Pneumonia, unspecified organism[ICD10: J18.9] Diagnosis: Type 2 diabetes mellitus with hyperglycemia[ICD10: E11.65] Belia REID DO [facility] CPT-4: 32654 01/23/2017 ([id number]) OFFICE/OUTPATIENT VISIT EST Diagnosis: Type 2 diabetes mellitus with hyperglycemia[ICD10: E11.65] Diagnosis: Localized edema[ICD10: R60.0] Diagnosis: PNEUMOCOCCAL VACCINE[ICD10: Z23] Diagnosis: FLU VACCINE[ICD10: Z23] Belia FREDERICK DO [facility] CPT-4: 65918 12/20/2016 OFFICE/OUTPATIENT VISIT EST Diagnosis: Pain in thoracic spine[ICD10: M54.6] Diagnosis: Low back pain[ICD10: M54.5] Diagnosis: Cervicalgia[ICD10: M54.2] Diagnosis: Cough[ICD10: R05] Celeste Hanna BELIA REID [facility] CPT-4: 04073 10/08/2016 ([id number]) OFFICE/OUTPATIENT VISIT EST Diagnosis: Primary insomnia[ICD10: F51.01] Diagnosis: Migraine, unspecified, not intractable, without status migrainosus[ICD10: G43.909] Diagnosis: Type 2 diabetes mellitus with hyperglycemia[ICD10: E11.65] Belia REID [facility] CPT-4: 27215 09/19/2016 ([id number]) OFFICE/OUTPATIENT VISIT EST Diagnosis: Migraine, unspecified, not intractable, without status migrainosus[ICD10: G43.909] Diagnosis: Generalized abdominal pain[ICD10: R10.84] Diagnosis: Cough[ICD10: R05] Belia REID [facility] CPT-4: 82738 08/20/2016 ([id number]) OFFICE/OUTPATIENT VISIT EST Diagnosis: Chronic obstructive pulmonary disease, unspecified[ICD10: J44.9] Diagnosis: Stridor[ICD10: R06.1] Belia REID [facility] CPT-4: 57424 06/19/2016 ([id number]) OFFICE/OUTPATIENT VISIT EST Diagnosis: Chronic obstructive pulmonary disease, unspecified[ICD10: J44.9] Diagnosis: Personal history of urinary (tract) infections[ICD10: Z87.440] Belia REID [facility] CPT-4: 26579 06/04/2016 ([id number]) OFFICE/OUTPATIENT VISIT EST Diagnosis: Stridor[ICD10: R06.1] Diagnosis: Chronic obstructive pulmonary disease with acute lower respiratory infection[ICD10: J44.0] Diagnosis: Other specified diseases of intestine[ICD10: K63.89] Diagnosis: Cystitis, unspecified without hematuria[ICD10: N30.90] Belia REID DO [facility] CPT-4: 30974 05/02/2016 ([id number]) OFFICE/OUTPATIENT VISIT EST Diagnosis: Fibromyalgia[ICD10: M79.7] Diagnosis: Urinary tract infection, site not specified[ICD10: N39.0] Belia REID DO [facility] CPT-4: 62872 04/03/2016 ([id number]) OFFICE/OUTPATIENT VISIT EST Diagnosis: Unspecified asthma, uncomplicated[ICD10: J45.909] Diagnosis: Cough[ICD10: R05] Lidia REID [employer] [facility] T-4: 74964 02/29/2016 ([id number]) OFFICE/OUTPATIENT VISIT EST Diagnosis: Migraine, unspecified, intractable, without status migrainosus[ICD10: G43.919] Diagnosis: Urinary tract infection, site not specified[ICD10: N39.0] Belia REID [employer] [facility] CPT-4: 27610 02/02/2016 ([id number]) OFFICE/OUTPATIENT VISIT EST Diagnosis: Urinary tract infection, site not specified[ICD10: N39.0] Diagnosis: Unspecified abdominal pain[ICD10: R10.9] Diagnosis: Pain in thoracic spine[ICD10: M54.6] Diagnosis: Type 2 diabetes mellitus with diabetic neuropathic arthropathy[ICD10: E11.610] Belia REID [employer] [facility] CPT-4: 75828 12/05/2015 ([id number]) OFFICE/OUTPATIENT VISIT EST Diagnosis: Chronic obstructive pulmonary disease with (acute) exacerbation[ICD10: J44.1] Diagnosis: Migraine, unspecified, not intractable, without status migrainosus[ICD10: G43.909] Lidia REID [employer] [facility] CPT -4: 82826 10/26/2015 ([id number]) OFFICE/OUTPATIENT VISIT EST Diagnosis: Hematuria, unspecified[ICD10: R31.9] Diagnosis: Urinary tract infection, site not specified[ICD10: N39.0] Lidia HSUQUELINE BushraMayda ANUSHKA [employer] [facility] CPT-4: 64604 10/05/2015 OFFICE/OUTPATIENT VISIT EST Diagnosis: Chronic obstructive pulmonary disease, unspecified[ICD10: J44.9] Diagnosis: Muscle weakness (generalized)[ICD10: M62.81] Diagnosis: Polyneuropathy, unspecified[ICD10: G62.9] Diagnosis: Other intervertebral disc degeneration, 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] Diagnosis: Fibromyalgia[ICD10: M79.7] Belia Anushka BELIA Yuridia DOMINGUEZ [employer] [facility] CPT-4: 99447 09/15/2015 ([id number]) OFFICE/OUTPATIENT VISIT EST Diagnosis: Disorientation, unspecified[ICD10: R41.0] Diagnosis: Headache[ICD10: R51] Diagnosis: Paresthesia of skin[ICD10: R20.2] Lidianick Hwang KOFFI Paredes BushraMayda ANUSHKA [employer] [facility] CPT-4: 44178 08/24/2015 ([id number]) OFFICE/OUTPATIENT VISIT EST Diagnosis: Type 2 diabetes mellitus with hyperglycemia[ICD10: E11.65] Diagnosis: Chronic obstructive pulmonary disease with acute lower respiratory infection[ICD10: J44.0] Belia Zacharybeckyotoniel CORNELLBELIA BushraMayda ANUSHKA [employer] [facility] CPT-4: 58269 07/05/2015 ([id number]) OFFICE/OUTPATIENT VISIT EST Diagnosis: Mild intermittent asthma with (acute) exacerbation[ICD10: J45.21] Diagnosis: Chronic obstructive pulmonary disease, unspecified[ICD10: J44.9] Belia Zacharybeckyotoniel BELIA BushraMayda ANUSHKA [employer] [facility] CPT-4: 31875 06/06/2015 ([id number]) OFFICE/OUTPATIENT VISIT EST Diagnosis: Chronic obstructive pulmonary disease with (acute) exacerbation[ICD10: J44.1] Lidia Jaiden BELIA BushraMayda ANUSHKA [employer] [facility] CPT- 4: 20243 05/23/2015 ([id number]) OFFICE/OUTPATIENT VISIT EST Diagnosis: Type 2 diabetes mellitus with hyperglycemia[ICD10: E11.65] Diagnosis: Functional dyspepsia[ICD10: K30] Belia BRUNSON [facility] CPT-4: 07635 05/05/2015 ([id number]) OFFICE/OUTPATIENT VISIT EST Diagnosis: Type 2 diabetes mellitus with hyperglycemia[ICD10: E11.65] Diagnosis: Glycosuria[ICD10: R81] Diagnosis: Urinary tract infection, site not specified[ICD10: N39.0] [facility] CPT-[facility]: 85555 03/30/2015 ([id number]) OFFICE/OUTPATIENT VISIT EST Diagnosis: Generalized abdominal pain[ICD10: R10.84] Diagnosis: Diarrhea, unspecified[ICD10: R19.7] Diagnosis: Urinary tract infection, site not specified[ICD10: N39.0] Diagnosis: Gastro-esophageal reflux disease without esophagitis[ICD10: K21.9] [facility]ia [facility] CPT-4: 51960 02/03/2015 ([id number]) OFFICE/OUTPATIENT VISIT EST Diagnosis: Other specified noninflammatory disorders of vagina[ICD10: N89.8] Diagnosis: Follicular disorder, unspecified[ICD10: L73.9] Diagnosis: Functional dyspepsia[ICD10: K30] Diagnosis: FLU VACCINE[ICD10: Z23] Belia Shi [facility] CPT-4: 63644 12/29/2014 ([id number]) OFFICE/OUTPATIENT VISIT EST 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] Diagnosis: RESTLESS LEGS SYNDROME[ICD9: 333.94] Diagnosis: MIGRAINE NOS/NOT INTRCBL[ICD9: 346.90] Beliahanna Shi [facility] CPT-4: 66648 09/02/2014 ([id number]) OFFICE/OUTPATIENT VISIT EST Diagnosis: Cervical radiculopathy[ICD9: 723.4] Diagnosis: Cervicalgia[ICD9: 723.1] Diagnosis: Degenerative disc disease, cervical[ICD9: 722.4] 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I[ICD9: 250.00] Beliahanna [facility] CPT-4: 86968 04/01/2014 OFFICE/OUTPATIENT VISIT EST Diagnosis: Reactive airway disease[ICD9: 493.90] Belia REID DO [facility] CPT-4: 46157 03/16/2014 ([id number]) OFFICE/OUTPATIENT VISIT EST Diagnosis: BRONCHITIS, ACUTE[ICD9: 466.0] Diagnosis: Reactive airway disease[ICD9: 493.90] Belia REID DO [facility] CPT-4: 48517 03/09/2014 OFFICE/OUTPATIENT VISIT EST Diagnosis: BRONCHITIS, ACUTE[ICD9: 466.0] Diagnosis: WHEEZING[ICD9: 786.07] Huong Peguero [facility] CPT-4: 29278 03/03/2014 OFFICE/OUTPATIENT VISIT EST Diagnosis: BRONCHITIS, ACUTE[ICD9: 466.0] Diagnosis: WHEEZING[ICD9: 786.07] Huong Peguero [facility] CPT-4: 06665 03/01/2014 ([id number]) OFFICE/OUTPATIENT VISIT EST Diagnosis: GERD[ICD9: 530.81] Diagnosis: ARTHRALGIA-MULTIPLE SITES[ICD9: 719.49] Diagnosis: LUMB/LUMBOSAC DISC DEGEN[ICD9: 722.52] Diagnosis: - I - FIBROMYALGIA[ICD9: 729.1] Belia CORNELLLINE Yuridia REID [facility] CPT-4: 89889 02/09/2014 ([id number]) OFFICE/OUTPATIENT VISIT EST Diagnosis: Peptic ulcer disease[ICD9: 533.90] Diagnosis: RESTLESS LEGS SYNDROME[ICD9: 333.94] Diagnosis: Neuropathy[ICD9: 355.9] Belia CORNELLLINE Yuridia FREDERICK [facility] CPT-4: 44054 12/23/2013 ([id number]) OFFICE/OUTPATIENT VISIT EST Diagnosis: URINARY TRACT INFECTION[ICD9: 599.0] Belia Zacharynilson HSUQUE CLAYTON BushraMayda ANUSHKA [facility] CPT-4: 97228 10/30/2013 ([id number]) OFFICE/OUTPATIENT VISIT EST Diagnosis: Flank pain[ICD9: 789.00] Belia BRUNSON BushraMayda KIESHA VIRGILIO [facility] CPT-4: 35868 10/21/2013 ([id number]) OFFICE/OUTPATIENT VISIT EST Diagnosis: INFLAMED SEBORR KERATOS[ICD9: 702.11] Diagnosis: Brachioradial pruritus[ICD9: 698.9] Diagnosis: ASTHMA NOS[ICD9: 493.90] Belia BRUNSON BushraMayda KIESHA [facility] CPT-4: 73214 10/05/2013 ([id number]) OFFICE/OUTPATIENT VISIT EST Diagnosis: HYPERTENSION[ICD9: 401.9] Diagnosis: - I - FIBROMYALGIA[ICD9: 729.1] Diagnosis: DIZZINESS/VERTIGO[ICD9: 780.4] Diagnosis: MIGRAINE NOS/NOT INTRCBL[ICD9: 346.90] Diagnosis: Diabetic peripheral neuropathy[ICD9: 250.60] Diagnosis: Flank pain[ICD9: 789.00] Belia hSi KIESHA [facility] CPT-4: 32462 08/04/2013 ([id number]) OFFICE/OUTPATIENT VISIT EST Diagnosis: ALLERGIC RHINITIS[ICD9: 477.9] [facility]: 74533 07/13/2013 OFFICE/OUTPATIENT VISIT EST Diagnosis: URINARY TRACT INFECTION[ICD9: 599.0] Huong [facility]: 37428 07/03/2013 OFFICE/OUTPATIENT VISIT EST Diagnosis: HYPERTENSION[ICD9: 401.9] Diagnosis: URINARY TRACT INFECTION[ICD9: 599.0] Diagnosis: BACKACHE[ICD9: 724.5] Diagnosis: URINARY INCONTINENCE[ICD9: 788.30] Huong Shi [facility] CPT-4: 85874 05/27/2013 ([id number]) OFFICE/OUTPATIENT VISIT EST Diagnosis: Flank pain[ICD9: 789.00] Belia Shi [facility] CPT-4: 86848 05/25/2013 ([id number]) OFFICE/OUTPATIENT VISIT EST Diagnosis: B-COMPLEX DEFIC NEC[ICD9: 266.2] Belia [facility]: 53305 05/04/2013 ([id number]) OFFICE/OUTPATIENT VISIT EST Diagnosis: ALLERGIC RHINITIS[ICD9: 477.9] Diagnosis: Vitamin B12 deficiency[ICD9: 266.2] Belia Humphriesbeckyotoniel HSUROBERTOFelicita DONNA Yuridia REID [facility] CPT-4: 79576 04/17/2013 ([id number]) OFFICE/OUTPATIENT VISIT EST 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I[ICD9: 250.00] Diagnosis: URINARY TRACT INFECTION[ICD9: 599.0] Diagnosis: DIZZINESS/VERTIGO[ICD9: 780.4] Diagnosis: DIARRHEA[ICD9: 787.91] Belia Humphriesnilson BRUNSON BushraMayda RALF Peguero [facility] CPT-4: 37480 04/06/2013 ([id number]) OFFICE/OUTPATIENT VISIT EST Diagnosis: URINARY TRACT INFECTION[ICD9: 599.0] Diagnosis: URINARY RETENTION[ICD9: 788.20] Belia Zacharybeckyotoniel HSUBELIA BushraMayda ANUSHKA [facility] CPT-4: 76774 11/10/2012 ([id number]) OFFICE/OUTPATIENT VISIT EST Diagnosis: TACHYCARDIA[ICD9: 785.0] Diagnosis: SYNCOPE AND COLLAPSE[ICD9: 780.2] Diagnosis: CONSCIOUSNS ALTERAT NEC[ICD9: 780.09] Belia HSUPAUL LUBNA BushraMayda ANUSHKA [facility] CPT-4: 77868 09/02/2012 OFFICE/OUTPATIENT VISIT EST Diagnosis: TACHYCARDIA[ICD9: 785.0] Diagnosis: SYNCOPE AND COLLAPSE[ICD9: 780.2] Belia Zacharynilson Paredes BushraMayda ANUSHKA [facility] CPT-4: 74357 08/04/2012 ([id number]) OFFICE/OUTPATIENT VISIT EST Diagnosis: Loss of consciousness[ICD9: 780.09] Diagnosis: Tachycardia[ICD9: 785.0] Diagnosis: MALAISE AND FATIGUE[ICD9: 780.79] Belia Zacharynilson Paredes BushraMayda ANUSHKA [facility] CPT-4: 07008 07/21/2012 ([id number]) OFFICE/OUTPATIENT VISIT EST Diagnosis: BRONCHITIS, ACUTE[ICD9: 466.0] Diagnosis: ASTHMA NOS[ICD9: 493.90] Belia BRUNSON BushraMayda KIESHARegino POOLE [facility] CPT-4: 78643 07/02/2012 ([id number]) OFFICE/OUTPATIENT VISIT EST Diagnosis: CEPHALGIA[ICD9: 784.0] Belia CORNELLLINE BushraMayda RALF Peguero [employer] CPT-4: 70858 06/25/2012 ([id number]) OFFICE/OUTPATIENT VISIT EST Diagnosis: GERD[ICD9: 530.81] Diagnosis: DIARRHEA[ICD9: 787.91] Diagnosis: URINARY TRACT INFECTION[ICD9: 599.0] Diagnosis: ASTHMA NOS[ICD9: 493.90] Diagnosis: ALLERGIC RHINITIS[ICD9: 477.9] Belia CORNELLLINE Bushra Mayda ANUSHKA [employer] [facility] CPT-4: 64581 06/24/2012 ([id number]) OFFICE/OUTPATIENT VISIT EST Diagnosis: MIGRAINE NOS/NOT INTRCBL[ICD9: 346.90] Diagnosis: TREMOR NEC[ICD9: 333.1] Diagnosis: CHRONIC PAIN SYNDROME[ICD9: 338.4] Belia BASS MARIE BushraMayda ANUSHKA [employer] [facility] CPT-4: 81028 05/20/2012 ([id number]) OFFICE/OUTPATIENT VISIT EST Diagnosis: DIZZINESS/VERTIGO[ICD9: 780.4] Diagnosis: PALPITATIONS[ICD9: 785.1] Diagnosis: TREMOR NEC[ICD9: 333.1] Diagnosis: ANXIETY STATE NOS[ICD9: 300.00] Diagnosis: POSTTRAUMATIC STRESS DISORDER[ICD9: 309.81] Belia CORNELLLINE BushraMayda ANUSHKA [employer] CPT-4: 98312 05/08/2012 ([id number]) OFFICE/OUTPATIENT VISIT EST Diagnosis: MIGRAINE NOS/NOT INTRCBL[ICD9: 346.90] Diagnosis: FIBROMYALGIA[ICD9: 729.1] Diagnosis: SYNCOPE AND COLLAPSE[ICD9: 780.2] Diagnosis: Diabetic peripheral neuropathy[ICD9: 250.60] Belia CORNELLLINE BushraMayda ANUSHKA [employer] [facility] CPT-4: 59152 04/22/2012 OFFICE/OUTPATIENT VISIT EST Diagnosis: ROTATOR CUFF DIS NEC[ICD9: 726.19] Diagnosis: JOINT PAIN-SHLDER[ICD9: 719.41] Diagnosis: DYSPEPSIA[ICD9: 536.8] Belia Zacharynilson BELIA BushraMayda RALF [employer] CPT-4: 93620 02/13/2012 ([id number]) OFFICE/OUTPATIENT VISIT EST Diagnosis: MIGRAINE NOS/NOT INTRCBL[ICD9: 346.90] Diagnosis: GERD[ICD9: 530.81] Diagnosis: DYSPEPSIA[ICD9: 536.8] Belia Peguero [facility] CPT-4: 68831 01/28/2012 OFFICE/OUTPATIENT VISIT EST Diagnosis: CEPHALGIA[ICD9: 784.0] Diagnosis: MIGRAINE NOS/NOT INTRCBL[ICD9: 346.90] Diagnosis: GERD[ICD9: 530.81] Diagnosis: INSOMNIA NOS[ICD9: 780.52] Belia HSUQUELINE Yuridia DOMINGUEZ [facility] CPT-4: 09012 12/26/2011 ([id number]) OFFICE/OUTPATIENT VISIT EST Diagnosis: CEPHALGIA[ICD9: 784.0] Diagnosis: MIGRAINE NOS/NOT INTRCBL[ICD9: 346.90] Diagnosis: MALAISE AND FATIGUE[ICD9: 780.79] Diagnosis: FIBROMYALGIA[ICD9: 729.1] Diagnosis: ALLERGIC RHINITIS[ICD9: 477.9] Belia CORNELLLINE Bushra Mayda ANUSHKA [facility] CPT-4: 35808 11/14/2011 ([id number]) OFFICE/OUTPATIENT VISIT EST Diagnosis: MALAISE AND FATIGUE[ICD9: 780.79] Diagnosis: MUSCLE WEAKNESS-GENERAL[ICD9: 728.87] Diagnosis: MIGRAINE NOS/NOT INTRCBL[ICD9: 346.90] Diagnosis: JOINT PAIN-SHLDER[ICD9: 719.41] Belia Zacharybeckyotoniel HSUBELIA BushraMayda ANUSHKA [facility] CPT-4: 57169 09/12/2011 ([id number]) OFFICE/OUTPATIENT VISIT EST Diagnosis: CONCUSSION[ICD9: 850.9] Diagnosis: Ataxia[ICD9: 781.3] Diagnosis: DIZZINESS/VERTIGO[ICD9: 780.4] Beliahanna CORNELLLINE Bushra Mayda ANUSHKA [facility] CPT-4: 38228 08/15/2011 ([id number]) OFFICE/OUTPATIENT VISIT EST Diagnosis: THROMBOPHLEBITIS[ICD9: 451.9] Diagnosis: Subacromial bursitis[ICD9: 726.19] Diagnosis: ALLERGIC RHINITIS[ICD9: 477.9] Diagnosis: Lipoma[ICD9: 214.9] Belia REID [facility] CPT-4: 10343 08/09/2011 ([id number]) OFFICE/OUTPATIENT VISIT EST Diagnosis: THROMBOPHLEBITIS[ICD9: 451.9] Diagnosis: Arm pain[ICD9: 729.5] Diagnosis: Clostridium difficile colitis[ICD9: 008.45] Diagnosis: URINARY TRACT INFECTION[ICD9: 599.0] Belia HUMPHRIESLONG [facility] CPT-[facility]: 59034 07/03/2011 ([id number]) OFFICE/OUTPATIENT VISIT EST Diagnosis: ARTHRALGIA-MULTIPLE SITES[ICD9: 719.49] Diagnosis: Muscle cramp[ICD9: 729.82] Diagnosis: INSOMNIA NOS[ICD9: 780.52] [facility]: 89589 06/04/2011 OFFICE/OUTPATIENT VISIT EST Diagnosis: Headache[ICD9: 784.0] Diagnosis: Allergic rhinitis[ICD9: 477.9] [facility] CPT-4: 33558 05/03/2011 OFFICE/OUTPATIENT VISIT EST Diagnosis: LUMB/LUMBOSAC DISC DEGEN[ICD9: 722.52] Diagnosis: MIGRAINE NOS/NOT INTRCBL[ICD9: 346.90] Diagnosis: CHRONIC PAIN SYNDROME[ICD9: 338.4] Diagnosis: RESTLESS LEGS SYNDROME[ICD9: 333.94] [facility] CPT-4: 07559 04/05/2011 OFFICE/OUTPATIENT VISIT EST Diagnosis: MIGRAINE NOS/NOT INTRCBL[ICD9: 346.90] Diagnosis: GERD[ICD9: 530.81] Belia [facility] CPT-4: 33170 03/08/2011 OFFICE/OUTPATIENT VISIT EST Diagnosis: URINARY TRACT INFECTION[ICD9: 599.0] Diagnosis: Vertigo[ICD9: 780.4] Diagnosis: GERD[ICD9: 530.81] Belia [facility] CPT-4: 60048 01/24/2011 OFFICE/OUTPATIENT VISIT EST Diagnosis: Hypotension[ICD9: 458.9] Diagnosis: Syncopal episodes[ICD9: 780.2] Diagnosis: MIGRAINE NOS/NOT INTRCBL[ICD9: 346.90] Diagnosis: MALAISE AND FATIGUE[ICD9: 780.79] Belia Shi ZACHARYNDER DO [facility] CPT-4: 92042 01/02/2011 OFFICE/OUTPATIENT VISIT EST Diagnosis: Tinea cruris[ICD9: 110.3] Diagnosis: Intertrigo[ICD9: 695.89] Diagnosis: MIGRAINE NOS/NOT INTRCBL[ICD9: 346.90] Belia COKER SMayda ZACHARYNDER [facility] CPT-4: 67400 12/07/2010 OFFICE/OUTPATIENT VISIT EST Diagnosis: PALPITATIONS[ICD9: 785.1] Diagnosis: ANXIETY STATE NOS[ICD9: 300.00] Belia Shi ZACHARYNDER [facility] CPT-4: 72022 11/16/2010 OFFICE/OUTPATIENT VISIT EST Diagnosis: URINARY TRACT INFECTION[ICD9: 599.0] Diagnosis: MIGRAINE NOS/NOT INTRCBL[ICD9: 346.90] Iraida COKER SMayda ZACHARYNDER DO [facility] CPT-4: 52766 11/02/2010 OFFICE/OUTPATIENT VISIT EST Diagnosis: ALLERGIC RHINITIS[ICD9: 477.9] Diagnosis: ANXIETY STATE NOS[ICD9: 300.00] Belia Shi ZACHARYNDER DO [facility] CPT-4: 91296 10/18/2010 OFFICE/OUTPATIENT VISIT EST Belia HUMPHRIES NDER DO [facility] CPT- 4: 90203 09/19/2010 OFFICE/OUTPATIENT VISIT EST Belia HUMPHRIES NDER DO [facility] CPT- 4: 86082 09/06/2010 ([id number]) OFFICE/OUTPATIENT VISIT EST Belia COKER SMayda ORENDER DO [facility] CPT-4: 41489 08/10/2010 ([id number]) OFFICE/OUTPATIENT VISIT EST Belia COKER SMayda [facility] CPT-4: 50165 05/11/2010 ([id number]) OFFICE/OUTPATIENT VISIT, RIOS HSU [facility]INE [facility] CPT-4: 04050 04/06/2010 ([id number]) OFFICE/OUTPATIENT VISIT, RIOS HSU [facility]ELINE [facility] CPT-4: 56334 02/09/2010 ([id number]) OFFICE/OUTPATIENT VISIT, RIOS HSU [facility]ELINE [facility] CPT-4: 40633 01/05/2010 ([id number]) OFFICE/OUTPATIENT VISIT, EST Belia HSU QUELINE [facility] CPT-4: 11418 12/07/2009 ([id number]) OFFICE/OUTPATIENT VISIT, EST Belia MEJIALINE S. [facility] CPT-4: 02241 11/08/2009 ([id number]) OFFICE/OUTPATIENT VISIT, [facility] CPT-4: 63991 10/24/2009 ([id number]) OFFICE/OUTPATIENT VISIT, RIOS [facility] CPT-4: 72333 07/25/2009 ([id number]) OFFICE/OUTPATIENT VISIT, [facility] CPT-4: 45134 05/26/2009 Plan of Care Planned Activity Notes Codes Status Date Visit Diagnosis Plan: Generalized pain Discussion: Hyp ersensitivity to pain Unable to do pain meds due to routine ativan use ICD-9 : 780.96 ICD-10 : R52 08/25/2019 Visit Diagnosis Plan: Fibromyalgia Discussion: Did not tolerate gabapentin due to side effects ICD-9 : 729.1 ICD-10 : M79.7 08/25/2019 Visit Diagnosis Plan: Hypoxia Discussion: Not using ox ygen today Is supposed to be on oxygen 24hrs a day ICD-9 : 799.02 ICD-10 : R09.02 08/25/2019 Visit Diagnosis Plan: Muscle weakness Discussion: Rout ine ativan may be contributing Elevated BS may be contributing as well ICD-9 : 728.87 ICD-10 : M62.81 08/25/2019 Patient Education: meloxicam- [employer] [id number] [email or web address]/samplemd/resources/getResource/61/[email or web address]-[email or web address]-[email or web address] Completed 08/25/2019 Patient Education: baclofen- [employer] C[employer]on [id number] https://[email or web address]/resources/getResource/61/g41z998k-[email or web address]-93n7-ym Completed 08/25/2019 Visit Diagnosis Plan: Yawning Discussion: [...] new home sleep study on patient through [facility] to assess severity of symptoms, patient does wear her oxygen at night though. educated on importance of wearing oxygen at all times, even when in public. ICD-9 : 786.09 ICD-10 : R06.89 08/10/2019 Appointment: Pattie Sotomayor [address] [place] [address] ACUTE ILLNESS 08/10/2019 Visit Diagnosis Plan: Dyspnea Discussion: has had rece nt cta. is due for updated ct without contrast due to adenopathy. will order. ICD-9 : 786.09 ICD-10 : R06.00 08/04/2019 Visit Diagnosis Plan: Pelvic pain in female Discussion : could be r/t constipation so will see how linzess works. ICD-9 : 625.9 ICD-10 : R10.2 08/04/2019 Visit Diagnosis Plan: Left leg swelling Discussion: [...] ICD-9 : 564.00 ICD-10 : K59.00 08/04/2019 Appointment: Pattie Sotomayor [address] [place] [address] ACUTE ILLNESS 08/04/2019 Visit Diagnosis Plan: Inspiratory stridor Discussion: Continue oxygen via NC at 2 L Continue ativan at QID Follow Up: 4 weeks ICD-9 : 786.1 ICD-10 : R06.1 07/06/2019 Visit Diagnosis Plan: Diarrhea Discussion: Restart Col estid at once daily ICD-9 : 787.91 ICD-10 : R19.7 07/06/2019 Appointment: Belia Reid WPtel: [facility] TELEMEDICINE 07/06/2019 Visit Diagnosis Plan: Left [...] R06.00 06/24/2019 Appointment: Belia Reid WPtel: [phone] TELEMEDICINE 06/24/2019 Visit Diagnosis Plan: Acute bronchitis Discussion: Cov er with levaquin Increase SVNs with albuterol to QID Has oxygen using q HS routinely and prn To ER if oxygen levels drop or worsening respiratory symptoms ICD-9 : 466.0 ICD-10 : J20.9 06/16/2019 Visit Diagnosis Plan: Colitis Discussion: Levaquin/Fla gyl [place] Diet ICD-9 : 558.9 ICD-10 : K52.9 06/16/2019 Appointment: Belia Reid WPtel: [address] [place] [address] TELEMEDICINE 06/16/2019 Patient Education: Levaquin- OptimizeRX Coupon [phone] [id number] https://www.[employer]/SurgiLight/resources/getResource/61/[email or web address] Completed 06/16/2019 Visit Diagnosis Plan: Diarrhea Discussion: Vancomycin for 10 days and notify if not improving or worsening BLAND diet Hydrate ICD-9 : 787.91 ICD-10 : R19.7 06/08/2019 Appointment: Belia Reid WPtel: [address] [place] [address] TELEMEDICINE 06/08/2019 Visit Diagnosis Plan: Acute febrile illness Discussion : Notify if worsens ICD-9 : 780.60 ICD-10 : R50.9 05/26/2019 Visit Diagnosis Plan: Colitis Discussion: Flagyl plus cipro to cover for both colitis and UTI Notify or to ER if worsening ICD-9 : 558.9 ICD-10 : K52.9 05/26/2019 Appointment: Belia Reid WPtel: [address] [place] [address] TELEMEDICINE 05/26/2019 Appointment: Pattie Sotomayor [address] [place] [address] RESCHEDULED 05/18/2019 Visit Diagnosis Plan: Chronic obstructive pulmonary di sease, unspecified Discussion: Recommend pulmonary rehab Patient states she never went to pulmonary rehab due to cost as well as transportation issues Finish trelagy Stop singulair Decrease hydroxyzine to 25mg po q HS Fwup [address] scan of Chest results discussed ICD-9 : 496 ICD-10 : J44.9 05/13/2019 Appointment: Belia Reid WPtel: [address] [place] [id number] Hospital Follow Up 05/13/2019 Visit Diagnosis Plan: COUGH Discussion: Check CT scan of chest ICD-9 : 786.2 ICD-10 : R05 05/06/2019 Visit Diagnosis Plan: Stridor Discussion: Add Trelagy 1 p daily Add Singulair May need to see new mathematics education professor ICD-9 : 786.1 ICD-10 : R06.1 05/06/2019 Appointment: Belia Reid WPtel: [address] [place], [place] [phone] FOLLOW UP 05/06/2019 Patient Education: Singulair- OptimizeRX Coudelma [phone] https://www.[employer]/S[employer]Light/resources/getResource/61/[email or web address]-gs Completed 05/06/2019 Appointment: Belia Reid WPtel: [address] [place], [place] [phone] [place] RESCHEDULED 04/30/2019 Visit Diagnosis Plan: Muscle, [...] : R06.1 04/29/2019 Appointment: Belia Reid WPtel: [address] [place], [place] [phone] Hospital Follow Up 04/29/2019 Patient Education: Valium- OptimizeRX Coupon [id number] https://www.[employer]/samplemd/resources/getResource/61/[email or web address] Completed 04/29/2019 Visit Diagnosis Plan: Weight gain [...] ICD-10 : R10.9 04/16/2019 Appointment: Pattie Sotomayor [address] [place] [address] ACUTE ILLNESS 04/16/2019 Patient Education: cyclobenzaprine- OptimizeRX Coupon [id number] https://www.[employer]/resources/getResource/61/[email or web address] Completed 04/16/2019 Visit Diagnosis Plan: Generalized pruritus Discussion: Hydroxyzine 25mg po TID for itching and anxiety ICD-9 : 698.9 ICD-10 : L29.9 04/08/2019 Visit Diagnosis Plan: Migraine, unspecif ied, not intractable, without status migrainosus Discussion: Increase gabapentin to 600mg po BID ICD-9 : 346.90 ICD-10 : G43.909 04/08/2019 Appointment: Belia Reid WPtel: [address] [place] [address] ACUTE ILLNESS 04/08/2019 Visit Diagnosis Plan: Cervicalgia [...] : M75.52 01/22/2019 Appointment: Belia Reid WPtel: [facility] [address] Hospital Follow Up 01/22/2019 Visit Diagnosis Plan: Abdominal pain Discussion: urine culture sent to assess for any infection. rocephin given in office to cover for pyelonephritis. instructed to push fluids. call office with any new or worsening symptoms. ICD-9 : 789.00 ICD-10 : R10.9 01/07/2019 Appointment: Bran, Pattie Howell [address] [place] [address] ACUTE ILLNESS 01/07/2019 Visit Diagnosis Plan: Low back pain Discussion: Stat C T of abdomen/pelvis now ICD-9 : 724.2 ICD-10 : M54.5 12/24/2018 Appointment: Belia Reid WPtel: [address] [place] [address] FOLLOW UP 12/24/2018 Visit Diagnosis Plan: Fibromyalgia [...] : G43.909 11/20/2018 Appointment: Belia Reid WPtel: [address] [place] [address] ACUTE ILLNESS 11/20/2018 Patient Education: baclofen- OptimizeRX Coupon [id number] https://www.[employer]/samplemd/resources/getResource/61/[email or web address] Completed 11/20/2018 Visit Diagnosis Plan: Acute sinusitis, unspecified Dis cussion: zithromax prescribed to cover for sinus infection due to length of symptoms and clinincal s/s. ICD-9 : 461.9 ICD-10 : J01.90 11/04/2018 Visit Diagnosis Plan: Migraine, unspecif ied, intractable, without status migrainosus Discussion: toradol/phenergan given in o ffice (60 mg toradol, 12.5 mg phenergan). instructed to call if no improvement or worsening. instructed to follow up with enterostomal therapy nurse since headaches are occurring more frequently to make sure vision is not the cause. ICD-9 : 346.91 ICD-10 : G43.919 11/04/2018 Appointment: Pattie Sotomayor 504 [facility]6[address] ACUTE ILLNESS 11/04/2018 Appointment: Belia Reid WPtel: [address] [place], [place] [phone] [place] CANCELED 09/24/2018 Visit Diagnosis Plan: Type 2 diabetes me llitus with diabetic neuropathy, unspecified Discussion: Retry gabapentin 300mg po q HS ICD-9 : 250.60 ICD-10 : E11.40 09/18/2018 Visit Diagnosis Plan: Vitamin D deficiency, unspecifie d Discussion: Increase Vitamin D3 to 10,000 u daily ICD-9 : 268.9 ICD-10 : E55.9 09/18/2018 Visit Diagnosis Plan: Essential (primary) hypertension Discussion: Stable ICD-9 : 401.9 ICD-10 : I10 09/18/2018 Visit Diagnosis Plan: Encounter for [facility] adult medical examination without abnormal findings Discussion: Mediterranean diet Combinati on of cardio and weight bearing exercise ICD-9 : V70.9 ICD-10 : Z00.00 09/18/2018 Visit Diagnosis Plan: Type 2 diabetes mellitus with hy perglycemia Discussion: Lab discussed Accuchecks daily Continue current meds Check CMP and HbA1C in 3mos then fwup ICD-9 : 250.02 ICD-10 : E11.65 09/18/2018 Appointment: Belia Reid WPtel: [address] [place], [place] [phone] Annual Well Visit 09/18/2018 Patient Education: gabapentin- OptimizeRX Coupon [id number] https://www.S[employer]Light.com/samplemd/resources/getResource/61/[email or web address] Completed 09/18/2018 Visit Diagnosis Plan: Pain in [...] ICD-10 : M54.89 09/08/2018 Appointment: Pattie Sotomayor [address] [place], [place] [address] ACUTE ILLNESS 09/08/2018 Patient Education: prednisone- OptimizeRX Coupon [id number] [phone] https://www.[employer].Umoove/samplemd/resources/getResource/61/[email or web address]-nv Completed 09/08/2018 Visit Diagnosis Plan: Acute stress [...] 698.9 ICD-10 : L29.9 08/20/2018 Appointment: Belia Reidtel: 2305 [facility] ACUTE ILLNESS 08/20/2018 Patient Education: Lexapro- OptimizeRX Coupon [id number] Completed 08/20/2018 Patient Education: hydroxyzine HCl- OptimizeRX Coupon [id number] Completed 08/20/2018 Care Plan: MAMMOGRAM SCREENING LOINC : 2 6347-5 Pending 08/20/2018 Visit Diagnosis Plan: Paroxysmal atrial fibrillation D iscussion: Discuss eliquis need with cardiology at [facility] due to cost ICD-9 : 427.31 ICD-10 : I48.0 06/19/2018 Visit Diagnosis Plan: Hypotension due to drugs Discuss ion: Discussed decreasing cardizem dose due to low BP and edema but sees cardiology next week Follow Up: 1 months ICD-9 : 458.8 ICD-10 : I95.2 06/19/2018 Appointment: Belia Reid WPtel: [address] [place], [place] [phone] [place] FOLLOW UP 06/19/2018 Visit Diagnosis Plan: [...] : I10 06/09/2018 Appointment: Belia Reid WPtel: [address] [place], [place] [phone] FOLLOW UP 06/09/2018 Care Plan: CHEST X-RAY 2VW FRONTAL&LATL LOINC : 47487-1 Pending 05/26/2018 Visit Diagnosis Plan: Stridor Discussion: [...] : I47.1 05/21/2018 Appointment: Belia Reid WPtel: [facility]1 [facility] Hospital Follow Up 05/21/2018 Visit Diagnosis Plan: Cervical disc diso rder with radiculopathy, unspecified cervical region Discussion: Scheduled for surgery on 06/02 10/[address] Faulkner ICD-9 : 722.0 ICD-10 : M50.10 04/16/2018 Appointment: Belia Reid WPtel: [address] [place], [place] [address] Up 04/16/2018 Visit Diagnosis Plan: [...] ICD-10 : G43.919 04/01/2018 Appointment: Pattie Sotomayor [address] [place] [address] ACUTE ILLNESS 04/01/2018 Appointment: Belia Reid WPtel: [address] [place] [address] 03/17/2018 Visit Diagnosis Plan: Erythema intertrigo Discussio: [...] : J44.1 03/06/2018 Appointment: Belia Reid WPtel: [address] [place] [address] Hospital Follow Up 03/06/2018 Visit Diagnosis Plan: Cervicalgia Discussion: spoke wi th dr. reid about patient. increased gabapentin to bid and started on celebrex bid. tramadrol rx written out to take prn. keep scheduled appt next week for myelogram. ICD-9 : 723.1 ICD-10 : M54.2 02/05/2018 Appointment: Bran, Pattie R. [address] [place], [place] [address] ACUTE ILLNESS 02/05/2018 Care Plan: X-RAY EXAM NECK SPINE 4/5VWS cervical LOINC : 20288-8 Pending 01/21/2018 Visit Diagnosis Plan: Cervicalgia Discussion: stat xra y of cervical spine ordered. samples of vimovo given to patient with instructions on use. discussed with patient that may need additional imaging of spine since unable to tolerate therapy and if meds ineffective. ICD-9 : 723.1 ICD-10 : M54.2 01/20/2018 Visit Diagnosis Plan: Candidiasis of skin and nail Dis cussion: diflucan daily for a week to cover fungal infection. call office in one week with status and if no improvement, will refer to dermatology once again. ICD-9 : 112.3 ICD-10 : B37.2 01/20/2018 Appointment: Pattie Sotomayor [address] [place], [place] [address] 01/20/2018 Visit Diagnosis Plan: Pain in thoracic spine Discussio n: Proceed with CT scan of thoracic spine Will likely need PT ICD-9 : 724.1 ICD-10 : M54.6 12/25/2017 Appointment: Belia Reid WPtel: [address] FOLLOW UP 12/25/2017 Care Plan: CT THORAX W/O DYE LOINC : 473 66-0 Pending 12/25/2017 Visit Diagnosis Plan: Pain in thoracic spine Discussio n: Stretches Alternated heat/ice Topical aspercreme with lidocaine Flexeril Recheck 1 week Flu and Pneumovax given ICD-9 : 724.1 ICD-10 : M54.6 12/17/2017 Appointment: Belia Reid WPtel: [address] ACUTE ILLNESS 12/17/2017 Patient Education: Patient [...] ICD-10 : J44.1 10/30/2017 Appointment: Belia Reidtel: [address] [place], [place] [phone] [place] FOLLOW UP 10/30/2017 Patient Education: Patient Medication Summary Completed 10/30/2017 Visit Diagnosis Plan: Chronic obstructiv e pulmonary disease with acute lower respiratory infection Discussion: Continue SVNs with albuterol q4hrs Add Trelagy 1 inhalation daily Finish steroids Increase water intake Follow Up: 1 weeks ICD-9 : 496 ICD-10 : J44.0 10/23/2017 Appointment: Belia Reidtel: [address] [place] [address] US WORK IN 10/23/2017 Patient Education: Patient Medication Summary Completed 10/23/2017 Appointment: Belia Reidtel: [address] [place], [place] [phone] [place] NO SHOW 10/16/2017 Visit Diagnosis Plan: [...] ICD-10 : E11.65 09/17/2017 Appointment: Belia Reidtel: [address] [place], [place] [phone] Annual Well Visit 09/17/2017 Patient Education: Patient Medication Summary Completed 09/17/2017 Appointment: Belia Reidtel: [address] [place], [place] [phone] US INJECTION 08/26/2017 Patient Education: Patient Medication Summary Completed 08/26/2017 Appointment: Belia Reidtel: [address] [id number] [place] CANCELED 07/31/2017 Visit Diagnosis Plan: Encounter for scre ening mammogram for malignant neoplasm of breast Discussion: mammogram ordered to be comp leted for routine. ICD-9 : V76.11 ICD-10 : Z12.31 07/19/2017 Visit Diagnosis Plan: Acute bronchitis, unspecified Di scussion: rocephin injection given in office. 40 mg kenalog given in office as well. breo sample prescribed to assist with dyspnea. instructed to rtc next week if no improvement. but otherwise, continue with levaquin. ICD-9 : 466.0 ICD-10 : J20.9 07/19/2017 Visit Diagnosis Plan: Urinary tract infection, site no t specified Discussion: will send urine off for culture. rocephin injection given in office today. call or rtc with new or worsening symptoms. ICD-9 : 599.0 ICD-10 : N39.0 07/19/2017 Visit Diagnosis Plan: Encounter for screening for oste oporosis Discussion: ordered dexa scan to be completed. ICD-9 : V82.81 ICD-10 : Z13.820 07/19/2017 Appointment: Pattie Sotomayor [address] [facility] ACUTE ILLNESS 07/19/2017 Patient Education: Patient Medication Summary Completed 07/19/2017 Care Plan: MAMMOGRAM SCREENING LOINC : 2 6347-5 Pending 07/19/2017 Patient Education: Patient Medication Summary Completed 06/05/2017 Care Plan: LIPID PANEL LOINC : 57719-4 Pending 06/05/2017 Care Plan: A1C HPLC LOINC : 93371-3 Pending 06/05/2017 Visit Diagnosis Plan: Rash and [...] : R21 05/29/2017 Appointment: Pattie Sotomayor [address] [facility] [id number] FOLLOW UP 05/29/2017 Patient Education: Patient Medication Summary Completed 05/29/2017 Visit Diagnosis Plan: Diarrhea, unspecified Discussion : Diflucan Cholestyramine Recheck 2weeks ICD-9 : 787.91 ICD-10 : R19.7 05/07/2017 Visit Diagnosis Plan: Tinea corporis Discussion: Diflu can and topical nystatin Follow Up: 2 weeks ICD-9 : 110.5 ICD-10 : B35.4 05/07/2017 Appointment: Belia Reid WPtel: [address] [place], [place] [phone] [place] FOLLOW UP 05/07/2017 Patient Education: Patient Medication Summary Completed 05/07/2017 Appointment: Belia Reid WPtel: [address] [place] [address] US RESCHEDULED 04/30/2017 Visit Diagnosis Plan: Stridor Discussion: Increase Ati van 0.5mg po to TID routinely for next week then can go back to prn ICD-9 : 786.1 ICD-10 : R06.1 03/18/2017 Visit Diagnosis Plan: Chronic obstructiv e pulmonary disease with (acute) exacerbation Discussion: Finish prednisone Continue S VNS with albuterol ICD-9 : 491.21 ICD-10 : J44.1 03/18/2017 Appointment: Belia Reid WPtel: [address] [place], [place] [phone] ER Follow UP 03/18/2017 Patient Education: Patient [...] : E11.65 02/27/2017 Appointment: Belia Reid WPtel: [address] [place], [place] [phone] [place] FOLLOW UP 02/27/2017 Patient Education: Patient [...] : E11.65 02/22/2017 Appointment: Pattie Sotomayor 504 [facility] ACUTE ILLNESS 02/22/2017 Patient Education: Patient Medication [...] : J18.9 01/23/2017 Appointment: Belia Reid WPtel: [facility]4 [facility] ER Follow UP 01/23/2017 Patient Education: Patient Medication Summary Completed 01/23/2017 Appointment: Pattie Sotomayor [address] [place], [place] [address]a [facility] US CANCELED 01/17/2017 Appointment: Pattie Sotomayor [address] [place], [place] [phone] Annual Well Visit 01/14/2017 Visit Diagnosis Plan: Type 2 diabetes mellitus with hy perglycemia Discussion: Check CMP, HbA1C Flu shot and Prevnar 13 given Follow Up: 3 months ICD-9 : 250.02 ICD-10 : E11.65 12/20/2016 Visit Diagnosis Plan: Localized edema Discussion: Low Na diet Compression socks/Elevate feet ICD-9 : 782.3 ICD-10 : R60.0 12/20/2016 Appointment: Belia Reid WPtel: [address] [place] [address] FOLLOW UP 12/20/2016 Patient Education: Patient Medication Summary Completed 12/20/2016 Patient Education: Patient Medication Summary Completed 10/10/2016 Visit Plan: Xrays of cervical, thoracic and lumbar spine at [facility] for Mobic (stop NSAIDS except Tylenol) and Flexeril UA sent for C&S Using SVN Call in 2-3 days if pain not improved or any worsening 10/08/2016 Appointment: Celeste Ferreira WPtel: [address] [place], [place] [phone] ACUTE ILLNESS 10/08/2016 Patient [...] : E11.65 09/19/2016 Appointment: Bel[facility] Reid [facility]Ptel[facility] 09/18 confirmed`sl FOLLOW UP 09/19/2016 Patient [...] R10.84 08/20/2016 Appointment: Belia Reid WPtel: [address] [place] [address] 08/16 confirmed~sl FOLLOW UP 08/20/2016 Patient Education: [...] : J44.9 06/19/2016 Appointment: Belia Reid WPtel: [address] [place], [place] [phone] 06/18 confirmed ~ Hospital Follow Up 06/19/2016 [...] : Z87.440 06/04/2016 Appointment: Belia Reid WPtel: [address] [place] [address] [place] 06/01 confirmed~sl FOLLOW UP 06/04/2016 Patient [...] : R06.1 05/02/2016 Appointment: Belia Reid WPtel: [address] [place], [place] [address] 05/01 confirmed [facility] Hospital Follow Up 05/02/2016 Patient Education: [...] : N39.0 04/03/2016 Appointment: Belia Reid WPtel: [address] [place], [place] [phone] [facility] Follow Up 04/03/2016 Patient Education: Patient Medication Summary Completed 04/03/2016 Visit Plan: Lungs are clear Her symptoms and exam are all upper airway restriction/constriction Can try supportive care Rx as above Follow up PRN 02/29/2016 Appointment: Lidia Hwang [address] [place], [place] [address] ACUTE ILLNESS 02/29/2016 Patient Education: Patient Medication Summary Completed 02/29/2016 Visit Plan: Toradol/Phenergan today for Migraine Change to Clindamycin to cover lactobacillus for UTI Cover with flagyl due to hx of C. Diff 02/02/2016 Appointment: Belia Reid WPtel: [address] [place], [place] [phone] 01/31 confirmed`sl ACUTE ILLNESS 02/02/2016 Patient Education: Patient Medication Summary Completed 02/02/2016 Visit Plan: Increase neurontin to 300mg q AM and 600mg q PM Discussed neurology re-evaluation Flu shot given Need to check on Pneumonia shot Rx written out for albuterol 01/05/2016 Appointment: Belia Reid WPtel: [address] [place], [place] [phone] 01/03 confirmed ~sl Annual Well Visit 01/05/2016 Patient Education: Patient Medication Summary Completed 01/05/2016 Visit Plan: Cipro Culture urine hydrate Flexeril refilled Alternate heat and ice for back Increase gabapentin to 300mg po BID Notify if worsens 12/05/2015 Appointment: Belia Reid WPtel: [address] [place], [place] [phone] 11/30 confirmed~sl ACUTE ILLNESS 12/05/2015 Patient Education: Patient Medication Summary Completed 12/05/2015 Patient Education: Patient Medication Summary Completed 10/27/2015 Care Plan: COMPREH[place]AB[place] : 05649-6 Pending 10/27/2015 Care Plan: A1C HPLC LOINC : 23308-9 Pending 10/27/2015 Visit Plan: Lungs are CTA today and is f eeling improved overall Finish meds as ordered Continue inhalers and neb treatments Discussed migraine treatment options She does not feel she needs anything additional added today Refill of Januvia sent since no samples are available today 10/26/2015 Appointment: Lidia Hwang [address] [place], [place] [address] Hospital Follow Up 10/26/2015 Appointment: Lidia Hwang [address] [place], [place] [phone] CANCELED 10/26/2015 Patient Education: Patient Medication Summary Completed 10/26/2015 Patient Education: Natalia - 18+ - KENNETH - No [place] Completed 10/26/2015 Visit Plan: Office dip still abnormal Cu lture pending Switch to cipro - stop macrobid Push fluids - avoid caffeine Will call with culture results when available Follow up if worsening 10/05/2015 Appointment: Lidia Hwang [address] [place], [place] [address] ER Follow UP 10/05/2015 Patient Education: Patient Medication Summary Completed 10/05/2015 Visit Plan: Proceed with PT for document ation of ROM and strength of all extremities Proceed with Power Mobility Device Trial of neurontin 300mg q HS--lyrica helped but patient unable to afford Recheck 1month 09/15/2015 Appointment: Belia Reid WPtel: [address] [place] [address] 09/13 confirmed~sl SPECIAL 09/15/2015 Patient Education: Patient Medication Summary Completed 09/15/2015 Visit Plan: Fille out Loan Discharge Pap erwork for total and permanent disability 08/25/2015 Patient Education: Patient Medication Summary Completed 08/25/2015 Visit Plan: Discussed with Dr Anushka Haywood at CT of head Will get last date of carotid doppler from her cap coverer and update if needed 08/24/2015 Appointment: Lidia Hwang [address] [place], [place] [phone] 08/22 confirmed~sl ACUTE ILLNESS 08/24/2015 Patient Education: Patient Medication Summary Completed 08/24/2015 Patient Education: Patient Medication Summary Completed 08/24/2015 Care Plan: US EXAM OF HEAD AND NECK carotid Ultrasound LOIN C : 39784-7 Pending 08/24/2015 Visit Plan: Long discussion about diet A ccuchecks daily Check HbA1C, CMP Change requip to mirapex 07/05/2015 Appointment: Belia Reid WPtel: [address] [place] [address] 07/03 confirmed ~sl FOLLOW UP 07/05/2015 Patient Education: Patient Medication Summary Completed 07/05/2015 Visit Plan: Add Breo ellipta 100 1 p BID Continue SVNs with duoneb QID 06/06/2015 Appointment: Belia Reid WPtel: [address] [place], [place] [phone] Patient is calling for a ride, then [...] not improving 05/23/2015 Appointment: Huong Osborne WPtel: [address] [place], [place] [phone] ACUTE ILLNESS 05/23/2015 Appointment: Lidia Hwang [address] [place], [place] [id number] Follow UP 05/23/2015 Patient Education: Patient Medication Summary Completed 05/23/2015 Visit Plan: Check pancreatic enzymes and US of pancreas as patient can't understand why she has diabetes since has no family history Discussed weight, diet, exercise all play an important role in diabetes and are risk factors as well Continue Januvia and accuchecks daily 05/05/2015 Appointment: Belia Reid WPtel: [address] [place], [place] [phone] FOLLOW UP 05/05/2015 Patient Education: Patient Medication Summary Completed 05/05/2015 Care Plan: US EXAM ABDOM COMPLETE LOINC : 61064-7 Ordered 05/05/2015 Visit Plan: Start Januvia 100mg daily [place] with diflucan and culture urine Accuchecks daily alternating times Recheck 6weeks 03/30/2015 Appointment: Belia Reid WPtel: [address] [place], [place] [phone] [place] 03/29 confirmed~lb FOLLOW UP 03/30/2015 Patient Education: Patient Medication Summary Completed 03/30/2015 Appointment: Belia Reid WPtel: [address] [place], [place] [phone] [place] 03/01 needs reschedule due to payment and insurance ~sl FOLLOW UP 03/02/2015 Visit Plan: Patient was just in ER last night so has not filled scripts yet Start Carafate and Flagyl and Cipro Add Hyophen 1 po BID Recheck 1mo 02/03/2015 Appointment: Belia Reid WPtel: [address] [place], [place] [phone] 02/02lm ~sl...02/03/15 appt confirmed cn ACUTE I LLNESS 02/03/2015 Patient Education: Patient Medication Summary Completed 02/03/2015 Visit Plan: Warm soaks to vaginal area K elex and Diflucan and observe Zofran to use prn 12/29/2014 Appointment: Belia Reid WPtel: [address] [place], [place] [phone] 12/28 Confirmed ~sl ACUTE ILLNESS 12/29/2014 Patient Education: Patient Medication Summary Completed 12/29/2014 Appointment: Huong Osborne WPtel: [address] [place], [place] [phone] FOLLOW UP 09/24/2014 Appointment: Belia Reid WPtel: [address] [place] [phone] 09/15 confirmed -mf FOLLOW UP 09/16/2014 Visit Plan: Increase requip to 2mg po BI D Increase lyrica to 225mg total a day by adding an extra 75mg in AM Recheck in 2weeks Continue to patch left eye while sleeping 09/02/2014 Appointment: Belia Reid WPtel: [address] [place], [place] [phone] 09/01 appt confirmed cn Hospital Follow Up 09/02 Patient Education: Patient Medication Summary Completed 09/02/2014 Visit Plan: To [facility] for observat ion to R/O CVA 08/25/2014 Appointment: Hunog Osborne WPtel: [address] [place], [place] [phone] ACUTE ILLNESS 08/25/2014 Patient Education: Patient Medication Summary Completed 08/25/2014 Referral: Aaron Jonas WPtel: [facility] [id number] [facility], [id number] In [place] location Initiated 04/26/2014 Referral: Brian Srinivasan WPtel: [facility] [id number] Referral Initiated 04/20/2014 Appointment: Belia Reid WPtel: [address] [place], [place] [phone] ER Follow UP 04/01/2014 Patient Education: Patient Medication Summary Completed 04/01/2014 Care Plan: MYELOGRAPHY NECK SPINE LOINC : 26124-3 Ordered 04/01/2014 Visit Plan: Continue Symbicort 160 at 2p BID Continue SVNs with duoneb at least QID Finish Levaquin Recheck 1mo on lyrica 03/16/2014 Appointment: Belia Reid WPtel: [address] [place], [place] [phone] voicemail FOLLOW UP 03/16/2014 Patient Education: Patient Medication Summary Completed 03/16/2014 Visit Plan: Restart SVNs with duoneb QID Repeat prednisone Levaquin Continue symbicort Keep lyrica at same dose Recheck 1week 03/09/2014 Appointment: Belia Reid WPtel: [address] [place] [address] FOLLOW UP 03/09/2014 Patient Education: Patient Medication Summary Completed 03/09/2014 Appointment: Belia Reid WPtel: [address] [place], [place] [phone] 03/03 showed up 15 minutes late for appt -- put her on Huong's side for 10:45am FORGIVEN PER DR FOLLOW UP 03/03/2014 Appointment: Huong Osborne WPtel: [address] [place] [address] FOLLOW UP 03/03/2014 Patient Education: Patient Medication Summary Completed 03/03/2014 Appointment: Huong Osborne WPtel: [address] [place], [place] [phone] ER Follow UP 03/01/2014 Patient Education: Patient Medication Summary Completed 03/01/2014 Visit Plan: Add carafate for this next m onth Increase lyrica to 150mg q HS 02/09/2014 Appointment: Belia Reidtel: [address] [place], [place] [phone] [place] [address] Follow Up 02/09/2014 Patient Education: Patient Medication Summary Completed 02/09/2014 Visit Plan: Increase omeprazole back to 40mg po BID Use requip in AM and add lyrica 75mg q HS Recheck 1mo 12/23/2013 Appointment: Belia Reid WPtel: [address] [place] [address] FOLLOW UP 12/23/2013 Patient Education: Patient Medication Summary Completed 12/23/2013 Patient Education: Patient Medication Summary Completed 12/04/2013 Appointment: Belia Reid WPtel: [address] [place] [address] 10/30/2013 Patient Education: Patient Medication Summary Completed 10/30/2013 Appointment: Belia Reid WPtel: [address] [place] [address] 10/21/2013 Patient Education: Patient Medication Summary Completed 10/21/2013 Visit Plan: Cryotherapy as above TAC and hydroxyzine to use prn to itching spots and itching SKs Add Advair HFA 115/21 1 p BID 10/05/2013 Appointment: Belia Reid WPtel: [address] [place], [place] [phone] 10/01 pt called and confirmed ACUTE ILLNESS Patient Education: Patient Medication Summary Completed 10/05/2013 Appointment: Belia Reid WPtel: [address] [place], [place] [phone] will pay copay and part of past balance FOLLOW U P 08/04/2013 Patient Education: Patient Medication Summary Completed 08/04/2013 Appointment: [phone] [facility] [place] [facility] 07/13/2013 Patient Education: Patient Medication Summary Completed 07/13/2013 Appointment: Huong Osborne WPtel: [address] [place], [place] [phone] [place] ACUTE ILLNESS 07/03/2013 Patient Education: Patient Medication Summary Completed 07/03/2013 Visit Plan: Cipro and culture urine 05/27/2013 Appointment: Huong Osborne WPtel: [address] [place], [place] [id number] [place] 05/26 confirmed appt and 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 FOLLOW UP 05/27/2013 Patient Education: Patient Medication Summary Completed 05/27/2013 Appointment: Belia Reid WPtel: [address] [place], [place] [phone] [place] UA 05/25/2013 Patient Education: Patient Medication Summary Completed 05/25/2013 Appointment: Belia Reid WPtel: [address] [place], [place] [phone] [place] INJECTION 05/04/2013 Patient Education: Patient Medication Summary Completed 05/04/2013 Appointment: Belia Reid WPtel: [address] [place], [place] [phone] [place] INJECTION 04/17/2013 Patient Education: Patient Medication Summary Completed 04/17/2013 Appointment: Belia Reid WPtel: [address] [place], [place] [phone] [place] INJECTION 04/15/2013 Appointment: Belia Reid WPtel: [address] [place], [place] [phone] [place] 04/02 FOLLOW UP 04/06/2013 Patient Education: Patient Medication Summary Completed 04/06/2013 Visit Plan: Obtain lab results including UA from [facility] 11/10/2012 Appointment: Belia Reid WPtel: [address] [place], [place] [phone] ER Follow UP 11/10/2012 Patient Education: Patient Medication Summary Completed 11/10/2012 Appointment: Belia Reid WPtel: [address] [place] [phone] 10/30/12 patient canceled appt due to fin ances. Offered to work something out, patient declined-LB FOLLOW UP 11/05/2012 Visit Plan: Continue Bystolic at current dose Pt has fwup with Neurology on September 16 09/02/2012 Appointment: Belia Reid WPtel: [address] [place] [address] FOLLOW UP 09/02/2012 Patient Education: Patient Medication Summary Completed 09/02/2012 Visit Plan: Continue bystolic at 5mg chris ly Sees Neurology tomorrow Use oxygen at bedtime 08/04/2012 Appointment: Belia Reid WPtel: [address] [place], [place] [phone] FOLLOW UP 08/04/2012 Patient Education: Patient Medication Summary Completed 08/04/2012 Appointment: Belia Reid WPtel: [address] [place], [place] [phone] [place] [address] Hospital fwup for 07/21/12. merged appointments FOLLOW UP 07/24/2012 Visit Plan: Start Bystolic 5mg daily for tachycardia Fwup with neurology for further workup Overnight O2 sat 07/21/2012 Appointment: Belia Reid WPtel: [address] [place], [place] [phone] Hospital Follow Up 07/21/2012 Patient Education: Patient Medication Summary Completed 07/21/2012 Visit Plan: SVN with Albuterol QID Add A velox 400mg daily Notify if worsens or persists 07/02/2012 Appointment: Belia Reid WPtel: [address] [place] [address] ACUTE ILLNESS 07/02/2012 Patient Education: Patient Medication Summary Completed 07/02/2012 Appointment: [facility] [address] [facility] [place] INJECTION 06/25/2012 Patient Education: Patient Medication Summary Completed 06/25/2012 Appointment: Bel[facility]el[phone] [facility] FOLLOW UP 06/24/2012 Patient Education: Patient Medication Summary Completed 06/24/2012 Appointment: [phone] [facility] 05/19 left message FOLLOW UP 05/20/2012 [...] TID 05/08/2012 Appointment: Belia Reid WPtel: [address] [place] [id number] ACUTE ILLNESS 05/08/2012 Patient Education: Patient Medication Summary Completed 05/08/2012 Visit Plan: Continue current meds Contin ue lower dose on pain meds and Diazepam Still waiting on paperwork for botox for Migraines Will restart Neurontin at 600mg po q HS Pt going to stop Depakote due to can't afford 04/22/2012 Appointment: Belia Reid WPtel: [address] [place] [id number] 04/21 Hospital Follow Up 04/22/2012 Patient Education: Patient Medication Summary Completed 04/22/2012 Visit Plan: Injection to shoulder as abo ve Continue current meds Has appointment with neurology on HAs in 02/13/2012 Appointment: Belia eRid WPtel: [id number] Pt does not have $10 copay at [facility] t time - will bring it in next week. Kianna iqbal'ed this. - [place] FOLLOW UP 02/13/2012 Patient Education: Patient Medication Summary Completed 02/13/2012 Visit Plan: Proceed with headache specia list Change nexium to Protonix Phenergan to use prn Sumatriptan to use prn Pt still on Inderal 01/28/2012 Appointment: Belia Reid WPtel: [address] [place], [place] [phone] ER Follow UP 01/28/2012 Patient Education: Patient [...] for sleep 12/26/2011 Appointment: Belia Reid WPtel: [address] [place], [place] [phone] 12/24- appt. confirmed FOLLOW UP 2 Patient Education: Patient Medication Summary Completed 12/26/2011 Appointment: Belia Reid WPtel: [address] [place], [place] [phone] [place] FOLLOW UP 11/14/2011 Patient Education: Patient Medication Summary Completed 11/14/2011 Appointment: Belia Reid WPtel: [address] [place], [place] [phone] [place] FOLLOW UP 09/12/2011 Patient Education: Patient Medication Summary Completed 09/12/2011 Visit Plan: Supportive care Decrease Liseth catalino to 50mg q HS Decrease AM dose of Valium to 5mg q HS Use Endocet sparingly 08/15/2011 Appointment: Belia Reid WPtel: [address] [place], [place] [phone] ER Follow UP 08/15/2011 Patient Education: Patient Medication Summary Completed 08/15/2011 Appointment: Belia Reid WPtel: [address] [place] [address] [place] Spoke directly to patient yesterday and confirmed the appoin tment. ACUTE ILLNESS 08/09/2011 Patient Education: Patient Medication Summary Completed 08/09/2011 Appointment: Belia Reid WPtel: [address] [place] [address] Hospital Follow Up 07/03/2011 Patient Education: Patient Medication Summary Completed 07/03/2011 Appointment: Belia Reid WPtel: [address] [place] [address] FOLLOW UP 06/04/2011 Patient Education: Patient Medication Summary Completed 06/04/2011 Visit Plan: Pt. wants "allergy shot" but in fact wants steroid shot. Will take a break from "generic Zyrtec they are getting from [facility]" and try Singulair for 2 weeks. 05/03/2011 Appointment: Iraida Jones WPtel: [address] [place] [address] ACUTE ILLNESS 05/03/2011 Patient Education: Patient Medication Summary Completed 05/03/2011 Visit Plan: Neurontin 400mg q HS for 1we ek then 800mg q HS Decrease requip to 1mg q HS for 2wks then stop Fwup 2mos 04/05/2011 Appointment: Belia Reid WPtel: [address] [place] [address] FOLLOW UP 04/05/2011 Patient Education: Patient Medication Summary Completed 04/05/2011 Visit Plan: Trial of neurontin in 2wks C ontinue current meds for stomach Pt has procedure with Dr. Ortiz next week for stone removal 03/08/2011 Appointment: Belia Reid WPtel: [address] [place], [place] [phone] Follow Up 03/08/2011 Patient Education: Patient Medication Summary Completed 03/08/2011 Appointment: Belia Reid WPtel: [address] [place], [place] [phone] [place] FOLLOW UP 02/19/2011 Visit Plan: reports [...] Flagyl 01/24/2011 Appointment: Iraida Jones WPtel: [address] [place] [address] ACUTE ILLNESS 01/24/2011 Patient Education: Patient Medication Summary Completed 01/24/2011 Appointment: Belia Reid WPtel: [address] [place] [address] [place] FOLLOW UP 01/02/2011 Patient Education: Patient Medication Summary Completed 01/02/2011 Appointment: Belia Reid WPtel: [address] [place] [address] FOLLOW UP 12/12/2010 Appointment: Belia Reid WPtel: [address] [place] [address] ACUTE ILLNESS 12/07/2010 Patient Education: Patient Medication Summary Completed 12/07/2010 Visit Plan: Increase Buspar to 10mg po B ID 11/16/2010 Appointment: Belia Reid WPtel: [address] [place], [place] [phone] [place] FOLLOW UP 11/16/2010 Patient Education: Patient Medication Summary Completed 11/16/2010 Appointment: Iraida Jones WPtel: [address] [place], [place] [phone] ER Follow UP 11/02/2010 Patient Education: Patient Medication Summary Completed 11/02/2010 Visit Plan: Depo-Medrol/Kenalog given fo r allergies Add BuSpar for anxiety Oxycodone one p.o. q.i.d. for number 120 refilled 10/18/2010 Appointment: Belia Reid WPtel: [address] [place] [address] FOLLOW UP 10/18/2010 Patient Education: Patient Medication Summary Completed 10/18/2010 Visit Plan: Continue current meds Discus sed epidurals for back vs PT--will proceed with epidurals to thoracolumbar region to see if helps with pain 09/19/2010 Appointment: Belia Reid WPtel: [address] [place], [place] [phone] FOLLOW UP 09/19/2010 Patient Education: Patient Medication Summary Completed 09/19/2010 Visit Plan: DC MS contin Check CT scan t horacic spine Fwup pending above results 09/06/2010 Appointment: Belia Reid WPtel: [address] [place] [address] FOLLOW UP 09/06/2010 Patient Education: Patient Medication Summary Completed 09/06/2010 Visit Plan: Continue current meds Restar t MS contin 15mg po BID and use oxycodone prn Use daily senokot-s 2 po BID 08/10/2010 Appointment: Belia Reidtel: [address] [place], [place] [phone] FOLLOW UP 08/10/2010 Patient Education: Patient Medication Summary Completed 08/10/2010 Visit Plan: Depomedrol/Kenalog given Pt sees ENT later this month Cont current meds Mammo scheduled 05/11/2010 Appointment: Belia Reid WPtel: [address] [place], [place] [phone] FOLLOW UP 05/11/2010 Patient Education: Patient Medication Summary Completed 05/11/2010 Appointment: Belia Reidtel: [address] [place], [place] [phone] UA 05/04/2010 Patient Education: Patient Medication Summary Completed 05/04/2010 Visit Plan: Pt sent to lab for UA 04/28/2010 Appointment: Belia Reidtel: [address] [place], [place] [phone] [place] [address] 04/28/2010 Patient Education: Patient Medication Summary Completed 04/28/2010 Visit Plan: Check CT angiogram of chest Restart Advair Use proair prn Cont current meds Fwup with Card as schedulec 04/06/2010 Appointment: Belia Reid WPtel: [address] [place] [address] Follow Up 04/06/2010 Patient Education: Patient Medication Summary Completed 04/06/2010 Visit Plan: Paperwork filled out for pow erchair Depomedrol/kenalog given Pt sees ENT in 2wks to assess nasal obstruction problems 02/09/2010 Appointment: Belia Reidtel: [address] [place] [address] ESTABLISHED PATIENT 02/09/2010 Patient Education: Patient Medication Summary Completed 02/09/2010 Visit Plan: Change Elavil to Trazadone 1 50mg q HS Diflucan and nystatin for tinea cruris 01/05/2010 Appointment: Belia Reidtel: [address] [place] [address] FOLLOW UP 01/05/2010 Patient Education: Patient Medication Summary Completed 01/05/2010 Appointment: Belia Reidtel: [address] [place] [address] FOLLOW UP 12/07/2009 Patient Education: Patient Medication Summary Completed 12/07/2009 Appointment: Belia Reid WPtel: [address] [place] [address] FOLLOW UP 11/22/2009 Visit Plan: Cont current meds and await MRI results from Dr. Meadows's office and his final recommendations Will need to follow-up at later date on deviated septum 11/08/2009 Appointment: Belia Reid WPtel: [address] [place], [place] [phone] FOLLOW UP 11/08/2009 Patient Education: Patient Medication Summary Completed 11/08/2009 Visit Plan: Cont PT/OT See Neurosurgery Cont Dwain arora 10/24/2009 Appointment: Belia Reid WPtel: [address] [place], [place] [phone] FOLLOW UP 10/24/2009 Patient Education: Patient Medication Summary Completed 10/24/2009 Appointment: Belia Reid WPtel: [address] [place], [place] [phone] Hospital Follow Up 10/17/2009 Appointment: Belia Reid WPtel: [address] [place], [place] [phone] ACUTE ILLNESS 07/25/2009 Patient Education: Patient Medication Summary Completed 07/25/2009 Appointment: Belia Reid WPtel: [address] [place], [place] [phone] FOLLOW UP 05/26/2009 Patient Education: Patient Medication Summary Completed 05/26/2009 Referral: Chino Balderas WPtel: [facility] [place] Referral Initiated Referral: Merry Vale WPtel: [facility] [id number] Vale will review referral and book appointment Completed Referral: Francisco Javier Yoder WPtel: [address] [id number] [place] Patient needs EGD insurance will not inc rease a medication unless this procedure results show a need Completed Referral: Francisco Javier Yoder WPtel: [address] [id number] [place] Referral Historical Reference Referral: Francisco Javier Yoder WPtel: [address] [id number] [place] Referral Initiated Instructions Comment . Xrays [...] from "generic Zyrtec they are getting from [facility]" and try Singulair for 2 weeks. . [...]
--- OUTSIDE RECORDS SUMMARY | 2019-08-27 07:47 | XMS REPORT | CCD ---
Author Author Diana Reid D.O. 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 Phone Belia Reid D.O., PP Unavailable CCM Unavailable Summary Purpose Interface Exchange Insurance Providers Payer name Policy type / Coverage type Covered green party ID Effective Begin Date Effective End Date [employer] MEDICARE Medicare Part B [id number] 2019 Unknown Family History Family History data not found Social History Social History Element Codes Description Effective Dates Tobacco history SNOMED CT: 595481641 Nonsmoker 09/13/2010 Allergies, Adverse Reactions, Alerts Substance Reaction Codes Entered Date Inactivated Date Status Eggs reaction [id number] 09/15/2015 No Inactive Date Active _ Unknown [...] Fill Instructions baclofen 10 mg tablet RxNorm: 319418 1 Tablet(s) Oral QD for pa in/spasm 08/25/2019 09/24/2019 Active meloxicam 15 mg tablet RxNorm: 428030 1 Tablet(s) Oral QD for pain 08/25/2019 09/24/2019 Active Insulin Syringe 1 mL 29 gauge x 1/2" RxNorm: 2 s yringes daily with insulin Dx: E11.65 08/12/2019 No Stop Date Active Ativan 0.5 mg tablet RxNorm: 445869 1 Tablet(s) Oral th ree times a day for anxiety/shortness of air/stridor 07/29/2019 08/27/2019 Active Singulair 10 mg tablet RxNorm: 500580 1 Tablet(s) Oral QPM 07/29/1901/25/2020 Active diltiazem CD 240 mg capsule,extended release 24 hr RxNorm: 8 40335 1 Capsule(s) Oral QD 07/15/2019 01/10/2020 Active metoprolol tartrate 50 mg tablet RxNorm: 457209 1 Table t(s) Oral two times a day 07/06/2019 No Stop Date Active Novolin N NPH U-100 Insulin isophane 100 unit/mL subcu taneous susp RxNorm: 269936 25 Unit(s) Subcutaneous two times a day 07/06/2019 07/06/2019 I nactive Colestid 1 gram tablet RxNorm: 5693100 1 Tablet(s) Oral two times a day for diarrhea 07/06/2019 09/04/2019 Active pramipexole 1 mg tablet RxNorm: 640088 1 Tablet(s) Oral QPM FOR RESTLESS LEGS (REPLACES REQUIP) 06/25/2019 06/19/2020 Active hydroxyzine HCl 25 mg tablet RxNorm: 613150 1 Tablet(s) Oral QPM for itching/aniety 06/25/2019 09/23/2019 Active Ativan 0.5 mg tablet RxNorm: 452931 1 Tablet(s) Oral th ree times a day for anxiety/shortness of air/stridor 06/25/2019 07/25/2019 Inactive Levaquin 500 mg tablet RxNorm: 678534 1 Tablet(s) Oral QD 06/16/2019 06/23/2019 Inactive Flagyl 500 mg tablet RxNorm: 610003 1 Tablet(s) Oral three time s a day 06/16/2019 06/23/2019 Inactive Vancocin 125 mg capsule RxNorm: 507047 1 Capsule(s) Oral four t imes a day 06/08/2019 06/18/2019 Inactive omeprazole 40 mg capsule,delayed release RxNorm: 029150 1 Capsule(s) Oral two times a day 05/26/2019 11/21/2019 Active Flagyl 500 mg tablet RxNorm: 935836 1 Tablet(s) Oral three time s a day 05/26/2019 06/05/2019 Inactive diltiazem CD 240 mg capsule,extended release 24 hr RxNorm: 8 24916 1 Capsule(s) Oral QD 05/26/2019 07/14/2019 Inactive Cipro 250 mg tablet RxNorm: 567173 1 Tablet(s) Oral two times a day 05/26/2019 06/02/2019 Inactive hydroxyzine HCl 25 mg tablet RxNorm: 296469 1 Tablet(s) Oral QPM for itching/aniety 05/21/2019 06/24/2019 Inactive metoprolol tartrate 25 mg tablet RxNorm: 677811 1 Table t(s) Oral two times a day 05/21/2019 07/05/2019 Inactive hydroxyzine HCl 25 mg tablet RxNorm: 715327 1 Tablet(s) Oral QPM for itching/aniety 05/13/2019 05/20/2019 Inactive Singulair 10 mg tablet RxNorm: 305109 1 Tablet(s) Oral QPM 05/06/19 20 05/12/2019 Inactive gabapentin 600 mg tablet RxNorm: 913794 1 Tablet(s) Oral QD 020 06/05/2019 Inactive Valium 5 mg tablet RxNorm: 588596 1 Tablet(s) Oral QPM for stri joao/muscle spasm 04/29/2019 06/24/2019 Inactive baclofen 10 mg tablet RxNorm: 783565 1 Tablet(s) Oral QPM for s pasm/neck pain 04/24/2019 05/23/2019 Inactive baclofen 10 mg tablet RxNorm: 747932 1 Tablet(s) Oral QPM for s pasm/neck pain 04/24/2019 04/23/2019 Inactive Novolin N NPH U-100 Insulin isophane 100 unit/mL subcu taneous susp RxNorm: 605289 23 Unit(s) Subcutaneous two times a day 04/20/2019 07/05/2019 I nactive cyclobenzaprine 5 mg tablet RxNorm: 644818 1 Tablet(s) Oral three times a day as needed 04/16/2019 04/23/2019 Inactive hydroxyzine HCl 25 mg tablet RxNorm: 169736 1 Tablet(s) Oral three times a day for itching/aniety 04/08/2019 05/12/2019 Inactive gabapentin 600 mg tablet RxNorm: 169614 1 Tablet(s) Oral two ti mes a day 04/08/2019 05/05/2019 Inactive gabapentin 600 mg tablet RxNorm: 890421 1 Tablet(s) Oral two ti mes a day 04/08/2019 04/07/2019 Inactive Novolin N NPH U-100 Insulin isophane 100 unit/mL subcu taneous susp RxNorm: 567474 10 Unit(s) Subcutaneous two times a day 03/03/2019 04/19/2019 I nactive gabapentin 300 mg capsule RxNorm: 634197 1 Capsule(s) O ral every night at bedtime for neuropathy 02/26/2019 04/07/2019 Inactive gabapentin 300 mg capsule RxNorm: 121342 1 Capsule(s) O ral every night at bedtime for neuropathy 02/20/2019 02/25/2019 Inactive buspirone 5 mg tablet RxNorm: 119629 TAKE 1 TABLET THREE TIMES MILDRED Y 02/12/2019 05/12/2019 Inactive pramipexole 1 mg tablet RxNorm: 418039 1 Tablet(s) Oral QPM FOR RESTLESS LEGS (REPLACES REQUIP) 02/12/2019 06/24/2019 Inactive Lexapro 10 mg tablet RxNorm: 720614 TAKE 1 TABLET EVERY DAY FOR MOO D 01/31/2019 No Stop Date Active Ativan 0.5 mg tablet RxNorm: 560658 [facility] 1 [facility]T [facility] TIMES DAILY NEEDED FOR ANXIETY 01/26/2019 04/28/2019 Inactive Ativan 0.5 mg tablet RxNorm: 722496 TAKE 1 TABLET [facility] THREE TIMES DAILY NEEDED FOR ANXIETY 01/05/2019 01/05/2019 Inactive Levaquin 500 mg tablet RxNorm: 803260 1 Tablet(s) Oral QD 12/25/2018 12/24/2018 Inactive Levaquin 500 mg tablet RxNorm: 665265 1 Tablet(s) Oral QD 12/25/2018 01/04/2019 Inactive baclofen 10 mg tablet RxNorm: 046659 1 Tablet(s) Oral three maico es a day 11/20/2018 01/19/2019 Inactive Ativan 0.5 mg tablet RxNorm: 912618 TAKE 1 TABLET [facility] THREE TIMES DAILY NEEDED FOR ANXIETY 11/20/2018 01/04/2019 Inactive gabapentin 300 mg capsule RxNorm: 108572 1 Capsule(s) O ral every night at bedtime for neuropathy 11/20/2018 12/20/2018 Inactive Lexapro 10 mg tablet RxNorm: 365112 1 Tablet(s) PO QD for mood 07/201801/30/2019 Inactive Zithromax Z-Lj 250 mg tablet RxNorm: 676066 Tablet(s) PO take as directed 11/04/2018 11/19/2018 Inactive Insulin Syringe 1 mL 29 gauge x 1/2" RxNorm: 2 s yringes daily with insulin Dx: E11.65 10/08/2018 08/11/2019 Inactive gabapentin 300 mg capsule RxNorm: 182433 1 Capsule(s) PO QHS fo r neuropathy 09/18/2018 10/17/2018 Inactive cyclobenzaprine 5 mg tablet RxNorm: 121810 1 Tablet(s) PO TID a s needed 09/09/2018 09/08/2018 Inactive cyclobenzaprine 5 mg tablet RxNorm: 585761 1 Tablet(s) PO TID a s needed 09/09/2018 10/08/2018 Inactive prednisone 20 mg tablet RxNorm: 361568 1 Tablet(s) PO QD 09/08/2018 0 09/12/2018 Inactive Lantus Solostar U-100 Insulin 100 unit/mL (3 mL) subcu taneous pen RxNorm: 811202 55 Unit(s) SQ QAM 08/28/2018 11/03/2018 Inactive hydroxyzine HCl 25 mg tablet RxNorm: 448083 1 Tablet(s) PO QHS for itching 08/20/2018 05/12/2019 Inactive Lexapro 10 mg tablet RxNorm: 346567 1 Tablet(s) PO QD for mood 08/0210/18/2018 Inactive sumatriptan 100 mg tablet RxNorm: 402444 1 Tablet(s) PO at headache onset. May repeat 1 in two hours if headache remains. Max of 2 per 24 hours 04/02/2018 05/20/2018 Inactive Diflucan 150 mg tablet RxNorm: 131183 1 Tablet(s) PO QD 03/18/2018 Inactive Diflucan 150 mg tablet RxNorm: 643962 1 Tablet(s) PO QD 03/18/2018 Inactive Flagyl 500 mg tablet RxNorm: 372728 1 Tablet(s) PO TID 03/17/2018 Inactive Levaquin 500 mg tablet RxNorm: 295952 1 Tablet(s) PO QD 03/17/2018 Inactive Levaquin 500 mg tablet RxNorm: 323741 1 Tablet(s) PO QD 03/17/2018 Inactive Flagyl 500 mg tablet RxNorm: 203757 1 Tablet(s) PO TID 03/17/2018 Inactive ketoconazole 200 mg tablet RxNorm: 057923 1 Tablet(s) PO QD 019 03/19/2018 Inactive Celebrex 200 mg capsule RxNorm: 798393 1 Capsule(s) PO BID 02/06/20 18 05/20/2018 Inactive tramadol 50 mg tablet RxNorm: 707042 1 Tablet(s) PO TID as needed 1 04/08/2017 05/20/2018 Inactive gabapentin 300 mg capsule RxNorm: 479508 1 Capsule(s) PO BID 201705/20/2018 Inactive Diflucan 150 mg tablet RxNorm: 177852 1 Tablet(s) PO QD 01/20/2018 Inactive pramipexole 1 mg tablet RxNorm: 522220 1 Tablet(s) PO Q PM FOR RESTLESS LEGS (REPLACES REQUIP) 01/08/2018 02/11/2019 Inactive cyclobenzaprine 10 mg tablet RxNorm: 377703 1 Tablet(s) PO TID as needed for muscle spasm 12/17/2017 05/20/2018 Inactive pramipexole 1 mg tablet RxNorm: 169692 TAKE 1 TABLET BY MOUTH ONCE DAILY IN THE EVENING FOR RESTLESS LEGS (REPLACES REQUIP) 12/04/2017 01/05/2018 Inac tive Amaryl 4 mg tablet RxNorm: 256652 1 Tablet(s) PO BID replaces 2mg 0 11/05/2017 12/16/2017 Inactive Singulair 10 mg tablet RxNorm: 220930 1 Tablet(s) PO QHS for al lergies/lungs 10/30/2017 12/16/2017 Inactive Diflucan 100 mg tablet RxNorm: 767401 1 Tablet(s) PO QD 10/23/2017 Inactive Ativan 0.5 mg tablet RxNorm: 533618 TAKE 1 TABLET BY MOUTH THRE E TIMES DAILY 08/30/2017 11/20/2018 Inactive buspirone 5 mg tablet RxNorm: 889903 1 Tablet(s) PO TID 07/11/2017 Inactive propranolol 60 mg tablet RxNorm: 776943 1 Tablet(s) PO BID repl aces 40mg dose 06/26/2017 12/16/2017 Inactive Amaryl 4 mg tablet RxNorm: 753427 1 Tablet(s) PO BID replaces 2mg 0 06/12/2017 11/05/2017 Inactive omeprazole 40 mg capsule,delayed release RxNorm: 462834 1 Capsule(s) PO BID TAKE ONE CAPSULE BY MOUTH TWICE DAILY 05/30/2017 11/25/2017 Inactive pramipexole 1 mg tablet RxNorm: 488325 1 Tablet(s) PO Q PM for restless legs--replaces requip 05/30/2017 11/25/2017 Inactive amitriptyline 50 mg tablet RxNorm: 899366 1 Tablet(s) PO QHS 201709/16/2017 Inactive Diflucan 100 mg tablet RxNorm: 905505 1 Tablet(s) PO BID 05/07/2017 0 05/20/2017 Inactive nystatin (bulk) 100 million unit powder RxNorm: Application TO P BID 05/07/2017 05/20/2018 Inactive cholestyramine (with sugar) 4 gram oral powder RxNorm: 536907 1 Unit Dose PO QD 05/07/2017 01/20/2018 Inactive Ativan 0.5 mg tablet RxNorm: 487424 TAKE ONE TABLET BY MOUTH TH REE TIMES DAILY 05/01/2017 09/02/2017 Inactive Trulicity 1.5 mg/0.5 mL subcutaneous pen injector RxNorm: 15 90813 1 Unit Dose SQ WEEKLY 02/22/2017 03/23/2017 Inactive doxycycline hyclate 100 mg capsule RxNorm: 5977154 1 Capsule(s) PO BID 01/23/2017 02/05/2017 Inactive Amaryl 4 mg tablet RxNorm: 778133 1 Tablet(s) PO BID replaces 2mg 1 03/25/2016 05/22/2017 Inactive magnesium oxide 400 mg capsule RxNorm: 385670 1 Capsule(s) PO QD 07/18/2017 Inactive Ativan 0.5 mg tablet RxNorm: 351924 TAKE ONE TABLET BY MOUTH TH REE TIMES DAILY 01/17/2017 05/01/2017 Inactive Amaryl 2 mg tablet RxNorm: 086281 1 Tablet(s) PO BID 12/27/201601/22 Inactive Amaryl 2 mg tablet RxNorm: 216193 1 Tablet(s) PO BID 12/26/201612/26 Inactive Ativan 0.5 mg tablet RxNorm: 584346 TAKE ONE TABLET BY MOUTH TH REE TIMES DAILY 12/05/2016 01/18/2017 Inactive pramipexole 1 mg tablet RxNorm: 037582 1 Tablet(s) PO Q PM for restless legs--replaces requip 11/26/2016 05/30/2017 Inactive Mobic 15 mg tablet RxNorm: 090616 1 Tablet(s) PO QD 10/08/20162016 Inactive cyclobenzaprine 5 mg tablet RxNorm: 438187 1/2- 1 Tablet(s) PO TID 10/08/2016 10/17/2016 Inactive Ativan 0.5 mg tablet RxNorm: 120634 1 Tablet(s) PO TID 09/20/201607/2016 Inactive amitriptyline 50 mg tablet RxNorm: 532816 1 Tablet(s) PO QHS 201605/30/2017 Inactive propranolol 60 mg tablet RxNorm: 990004 1 Tablet(s) PO BID repl aces 40mg dose 09/19/2016 06/26/2017 Inactive Ativan 0.5 mg tablet RxNorm: 906876 1 Tablet(s) PO TID 08/20/2016 Inactive omeprazole 40 mg capsule,delayed release RxNorm: 665618 1 Capsule(s) PO BID TAKE ONE CAPSULE BY MOUTH TWICE DAILY 08/20/2016 05/30/2017 Inactive amitriptyline 50 mg tablet RxNorm: 894384 1 Tablet(s) PO QHS 201609/18/2016 Inactive pramipexole 1 mg tablet RxNorm: 223370 1 Tablet(s) PO Q PM for restless legs--replaces requip 07/23/2016 11/25/2016 Inactive Amaryl 2 mg tablet RxNorm: 046477 1 Tablet(s) PO BID 07/23/201612/27 Inactive propranolol 40 mg tablet RxNorm: 978843 1 Tablet(s) PO BID 07/13/19 17 09/18/2016 Inactive Ativan 0.5 mg tablet RxNorm: 640094 1 Tablet(s) PO QID 06/19/2016 Inactive Amaryl 2 mg tablet RxNorm: 088421 1 Tablet(s) PO BID 06/19/201607/22 Inactive Ativan 0.5 mg tablet RxNorm: 700086 1 Tablet(s) PO QID 06/19/2016 Inactive buspirone 5 mg tablet RxNorm: 173036 1 Tablet(s) PO TID 06/19/2016 Inactive Ativan 0.5 mg tablet RxNorm: 819468 1 Tablet(s) PO BID 05/24/2016 Inactive buspirone 5 mg tablet RxNorm: 189640 1 Tablet(s) PO TID 05/23/2016 Inactive Macrobid 100 mg capsule RxNorm: 510107 1 Capsule(s) PO QOD 05/03/19 17 10/07/2016 Inactive pramipexole 1 mg tablet RxNorm: 395658 Tablet(s) 1 Tabl et(s) PO QPM for restless legs--replaces requip 04/26/2016 06/24/2016 Inactive propranolol 40 mg tablet RxNorm: 533173 TAKE ONE TABLET BY MOUT H TWICE DAILY 04/26/2016 06/24/2016 Inactive Detrol LA 4 mg capsule,extended release RxNorm: 801705 1 Capsul e(s) PO QHS 04/03/2016 05/02/2016 Inactive prednisone 20 mg tablet RxNorm: 522075 1 Tablet(s) PO QD 02/29/2016 0 03/04/2016 Inactive Actos 30 mg tablet RxNorm: 338252 TAKE ONE TABLET BY MOUTH ONCE DAILY 02/27/2016 12/19/2016 Inactive clindamycin 300 mg capsule RxNorm: 158294 1 Capsule(s) PO TID 02/0102/08/2016 Inactive Flagyl 500 mg tablet RxNorm: 102290 1 Tablet(s) PO BID 02/02/201609/2015 Inactive omeprazole 40 mg capsule,delayed release RxNorm: 456364 TAKE ONE CAPSULE BY MOUTH TWICE DAILY 01/15/2016 07/12/2016 Inactive gabapentin 300 mg capsule RxNorm: 987834 1 Capsule(s) PO QAM an d 2 po q HS 01/05/2016 06/18/2016 Inactive gabapentin 300 mg capsule RxNorm: 353697 1 Capsule(s) P O BID 1 Capsule(s) PO QHS 12/05/2015 01/04/2016 Inactive cyclobenzaprine 10 mg tablet RxNorm: 470707 1 Tablet(s) PO TID for spasm as needed for muscle spasm 12/05/2015 06/18/2016 Inactive ciprofloxacin 250 mg tablet RxNorm: 639169 1 Tablet(s) PO BID 12/0412/14/2015 Inactive pramipexole 1 mg tablet RxNorm: 761915 Tablet(s) 1 Tabl et(s) PO QPM for restless legs--replaces requip 11/07/2015 11/26/2016 Inactive Januvia 100 mg tablet RxNorm: 367721 1 Tablet(s) PO QD 10/26/201504/2015 Inactive propranolol 40 mg tablet RxNorm: 811687 TAKE ONE TABLET BY MOUT H TWICE DAILY 10/25/2015 04/21/2016 Inactive gabapentin 300 mg capsule RxNorm: 178926 1 Capsule(s) PO QHS 201512/04/2015 Inactive Cipro 500 mg tablet RxNorm: 184309 1 Tablet(s) PO BID 10/05/201511/2015 Inactive pramipexole 1 mg tablet RxNorm: 596504 Tablet(s) 1 Tabl et(s) PO QPM for restless legs--replaces requip 10/04/2015 11/02/2015 Inactive propranolol 40 mg tablet RxNorm: 080019 TAKE ONE TABLET BY MOUT H TWICE DAILY 09/26/2015 10/24/2015 Inactive Amaryl 2 mg tablet RxNorm: 351272 1 Tablet(s) PO QD 09/15/20152016 Inactive gabapentin 300 mg capsule RxNorm: 451030 1 Capsule(s) PO QHS 201510/14/2015 Inactive buspirone 5 mg tablet RxNorm: 161273 1 Tablet(s) PO TID 09/15/2015 Inactive pramipexole 1 mg tablet RxNorm: 614757 Tablet(s) 1 Tabl et(s) PO QPM for restless legs--replaces requip 09/08/2015 10/03/2015 Inactive pramipexole 1 mg tablet RxNorm: 598288 1 Tablet(s) PO Q PM for restless legs--replaces requip 08/08/2015 09/08/2015 Inactive Amaryl 2 mg tablet RxNorm: 130008 1 Tablet(s) PO QD 07/07/20152015 Inactive pramipexole 1 mg tablet RxNorm: 861440 1 Tablet(s) PO Q PM for restless legs--replaces requip 07/05/2015 08/03/2015 Inactive ropinirole 2 mg tablet RxNorm: 610749 TAKE ONE TABLET BY MOUTH TWICE DAILY 05/09/2015 09/14/2015 Inactive Diflucan 100 mg tablet RxNorm: 622434 1 Tablet(s) PO QD 03/30/2015 Inactive propranolol 40 mg tablet RxNorm: 710618 1 Tablet(s) PO BID 02/24/20 15 08/21/2015 Inactive [SAVINGS FOR UNINSURED PATIE NTS -- BIN:670223, PCN: ASPROD1, Group: AME08, ID# [id number], Process claim through MedImpact, for questions: . THIS IS NOT INSURANCE.] Flagyl 500 mg tablet RxNorm: 319905 1 Tablet(s) PO BID 02/03/201502/2015 Inactive Cipro 500 mg tablet RxNorm: 656491 1 Tablet(s) PO BID 02/03/201502/01 Inactive Carafate 1 gram tablet RxNorm: 145113 1 Tablet(s) PO QID make i nto slurry 02/03/2015 09/14/2015 Inactive ondansetron HCl 4 mg tablet RxNorm: 728770 1 Tablet(s) PO Q4H as needed for nausea 12/29/2014 01/04/2016 Inactive Diflucan 100 mg tablet RxNorm: 557175 1 Tablet(s) PO QD 12/29/2014 Inactive Keflex 500 mg capsule RxNorm: 780067 1 Capsule(s) PO TID 12/29/2014 1 03/09/2014 Inactive omeprazole 40 mg capsule,delayed release RxNorm: 107000 1 Capsu le(s) PO BID 12/27/2014 12/21/2015 Inactive [SAVINGS FOR UNINSUR ED PATIENTS -- BIN:717437, PCN: ASPROD1, Group: AME08, ID# [id number], Process claim through MedImpact, for questions: . THIS IS NOT INSURANCE.] ropinirole 2 mg tablet RxNorm: 581307 1 Tablet(s) PO BID 09/29/2014 0 03/27/2015 Inactive [SAVINGS FOR UNINSURED PATIENTS -- BIN:0 48794, PCN: ASPROD1, Group: AME08, ID# [id number], Process claim through MedImpact, for questions: . THIS IS NOT INSURANCE.] buspirone 5 mg tablet RxNorm: 453920 1 Tablet(s) PO TID 09/17/2014 Inactive ropinirole 2 mg tablet RxNorm: 414369 1 Tablet(s) PO BID 09/02/2014 0 09/28/2014 Inactive [SAVINGS FOR UNINSURED PATIENTS -- BIN:0 08063, PCN: ASPROD1, Group: AME08, ID# [id number], Process claim through MedImpact, for questions: . THIS IS NOT INSURANCE.] Zyrtec 10 mg tablet RxNorm: 2658558 1 Tablet(s) PO QD 09/02/201412/02 Inactive propranolol 40 mg tablet RxNorm: 273018 1 Tablet(s) PO BID 07/21/19 15 02/23/2015 Inactive [SAVINGS FOR UNINSURED PATIE NTS -- BIN:096282, PCN: ASPROD1, Group: AME08, ID# [id number], Process claim through MedImpact, for questions: . THIS IS NOT INSURANCE.] ropinirole 2 mg tablet RxNorm: 323228 1 Tablet(s) PO QHS 05/14/2014 0 09/01/2014 Inactive [SAVINGS FOR UNINSURED PATIENTS -- BIN:0 36818, PCN: ASPROD1, Group: AME08, ID# [id number], Process claim through MedImpact, for questions: . THIS IS NOT INSURANCE.] cyclobenzaprine 10 mg tablet RxNorm: 026803 1 Tablet(s) PO QHS for spasm 04/06/2014 09/01/2014 Inactive ipratropium-albuterol 0.5 mg-3 mg(2.5 mg base)/3 mL ne bulization soln RxNorm: 8700614 1 Unit Dose INH Q4H 03/16/2014 No Stop Date Active [SAVINGS FOR UNINSURED PATIENTS -- BIN:674746, PCN: ASPROD1, Group: AME08, ID# [id number], Process claim through MedImpact, for questions: . THIS IS NOT INSURANCE.] prednisone 20 mg tablet RxNorm: 756379 1 Tablet(s) PO BID 03/09/2014 03/15/2014 Inactive [SAVINGS FOR UNINSURED PATIENTS -- BIN:0 73334, PCN: ASPROD1, Group: AME08, ID# [id number], Process claim through MedImpact, for questions: . THIS IS NOT INSURANCE.] ipratropium-albuterol 0.5 mg-3 mg(2.5 mg base)/3 mL ne bulization soln RxNorm: 2699097 1 Unit Dose INH Q4H 03/09/2014 03/15/2014 Inactive [SAVINGS FOR UNINSURED PATIENTS -- BIN:848152, PCN: ASPROD1, Group: AME08, ID# [id number], Process claim through MedImpact, for questions: . THIS IS NOT INSURANCE.] Levaquin 500 mg tablet RxNorm: 664828 1 Tablet(s) PO QD 03/09/2014 Inactive [SAVINGS FOR UNINSURED PATIENTS -- BIN:0 37269, PCN: ASPROD1, Group: AME08, ID# [id number], Process claim through MedImpact, for questions: . THIS IS NOT INSURANCE.] Carafate 1 gram tablet RxNorm: 548550 1 Tablet(s) PO AC & HS ma ke into slurry 02/09/2014 09/01/2014 Inactive [SAVINGS FOR UNINSUR ED PATIENTS -- BIN:321702, PCN: ASPROD1, Group: AME08, ID# [id number], Process claim through MedImpact, for questions: . THIS IS NOT INSURANCE.] Fioricet 50 mg-300 mg-40 mg capsule RxNorm: 4915327 1-2 Capsule(s) PO Q4H as needed for headache --max of 6 a day 02/09/2014 09/01/2014 Inactive [SAVINGS FOR UNINSURED PATIENTS -- BIN:784545, PCN: ASPROD1, Group: AME08, ID# [id number], Process claim through MedImpact, for questions: . THIS IS NOT INSURANCE.] propranolol 40 mg tablet RxNorm: 811585 1 Tablet(s) PO BID 12/08/19 14 06/04/2014 Inactive [SAVINGS FOR UNINSURED PATIE NTS -- BIN:346334, PCN: ASPROD1, Group: AME08, ID# [id number], Process claim through MedImpact, for questions: . THIS IS NOT INSURANCE.] buspirone 5 mg tablet RxNorm: 786426 1 Tablet(s) PO TID 12/02/2013 Inactive omeprazole 40 mg capsule,delayed release RxNorm: 135176 1 Capsu le(s) PO BID 11/25/2013 11/19/2014 Inactive [SAVINGS FOR UNINSUR ED PATIENTS -- BIN:455428, PCN: ASPROD1, Group: AME08, ID# [id number], Process claim through MedImpact, for questions: . THIS IS NOT INSURANCE.] ropinirole 2 mg tablet RxNorm: 937887 1 Tablet(s) PO QHS 11/10/2013 0 05/08/2014 Inactive [SAVINGS FOR UNINSURED PATIENTS -- BIN:0 02593, PCN: ASPROD1, Group: AME08, ID# [id number], Process claim through MedImpact, for questions: . THIS IS NOT INSURANCE.] Cipro 500 mg tablet RxNorm: 397543 1 Tablet(s) PO BID 10/21/201312/03 Inactive [SAVINGS FOR UNINSURED PATIENTS -- BIN:0 72855, PCN: ASPROD1, Group: AME08, ID# [id number], Process claim through MedImpact, for questions: . THIS IS NOT INSURANCE.] hydroxyzine HCl 25 mg tablet RxNorm: 205363 1 Tablet(s) PO Q4-6 H as needed 10/05/2013 01/04/2016 Inactive [SAVINGS FOR UNINSUR ED PATIENTS -- BIN:958355, PCN: ASPROD1, Group: AME08, ID# [id number], Process claim through MedImpact, for questions: . THIS IS NOT INSURANCE.] triamcinolone acetonide 0.1 % topical cream RxNorm: 1799526 Appl ication TOP BID 10/05/2013 09/01/2014 Inactive [SAVINGS FOR UNINSUR ED PATIENTS -- BIN:484024, PCN: ASPROD1, Group: AME08, ID# [id number], Process claim through MedImpact, for questions: . THIS IS NOT INSURANCE.] albuterol sulfate HFA 90 mcg/actuation aerosol inhaler RxNor m: 7017223 2 Puff(s) INH Q4H as needed for cough 10/01/2013 12/22/2013 Inactive [MAKSIM INGS FOR UNINSURED PATIENTS -- BIN:220725, PCN: ASPROD1, Group: AME08, ID# [id number], Process claim through MedImpact, for questions: . THIS IS NOT INSURANCE.] propranolol 40 mg tablet RxNorm: 385204 1 Tablet(s) PO BID 09/02/19 14 11/29/2013 Inactive [SAVINGS FOR UNINSURED PATIE NTS -- BIN:659294, PCN: ASPROD1, Group: AME08, ID# [id number], Process claim through MedImpact, for questions: . THIS IS NOT INSURANCE.] propranolol 40 mg tablet RxNorm: 747300 1 Tablet(s) PO BID 08/05/19 14 08/31/2013 Inactive [SAVINGS FOR UNINSURED PATIE NTS -- BIN:475053, PCN: ASPROD1, Group: AME08, ID# [id number], Process claim through MedImpact, for questions: . THIS IS NOT INSURANCE.] Toprol XL 50 mg tablet,extended release RxNorm: 775290 1 Tablet (s) PO QHS 07/23/2013 08/03/2013 Inactive Macrobid 100 mg capsule RxNorm: 262314 1 Capsule(s) PO BID 07/04/19 14 07/09/2013 Inactive Toprol XL 50 mg tablet,extended release RxNorm: 605095 1 Tablet (s) PO QHS 05/28/2013 06/26/2013 Inactive ciprofloxacin 500 mg tablet RxNorm: 571868 1 Tablet(s) PO BID 05/2706/02/2013 Inactive Bystolic 5 mg tablet RxNorm: 201087 1 Tablet(s) PO QD 05/27/201305/03 Inactive ropinirole 2 mg tablet RxNorm: 201605 1 Tablet(s) PO QHS 04/22/2013 0 11/09/2013 Inactive Cipro 250 mg tablet RxNorm: 033241 1 Tablet(s) PO BID 04/06/201311/2013 Inactive ropinirole 2 mg tablet RxNorm: 909871 1 Tablet(s) PO QHS 02/17/2013 0 04/21/2013 Inactive Amaryl 2 mg tablet RxNorm: 565381 1 Tablet(s) PO QAM 11/11/201211/10 Inactive Amaryl 2 mg tablet RxNorm: 731751 1 Tablet(s) PO QAM 11/11/201204/05 Inactive omeprazole 40 mg capsule,delayed release RxNorm: 701310 1 Capsu le(s) PO BID 08/14/2012 08/08/2013 Inactive Bystolic 5 mg tablet RxNorm: 499978 1 Tablet(s) PO QD 08/14/201205/03 Inactive propranolol 60 mg tablet RxNorm: 824533 Tablet(s) PO TAKE 1 TAB LET TWICE DAILY 08/01/2012 09/01/2012 Inactive Bystolic 5 mg tablet RxNorm: 898073 1 Tablet(s) PO QD 07/21/201207/02 Inactive Bystolic 5 mg tablet RxNorm: 332043 1 Tablet(s) PO QD 07/21/201207/03 Inactive Prilosec 40 mg capsule,delayed release RxNorm: 519967 1 Capsule (s) PO BID 06/24/2012 07/21/2012 Inactive buspirone 10 mg tablet RxNorm: 549190 1 Tablet(s) PO TID 05/08/2012 0 05/23/2016 Inactive Valium 10 mg tablet RxNorm: 727143 1 Tablet(s) PO BID 04/02/201207/03 Inactive Endocet 10 mg-325 mg tablet RxNorm: 8391148 1 Tablet(s) PO QID 03/0607/21/2012 Inactive as needed for severe pain Valium 10 mg tablet RxNorm: 423816 1 Tablet(s) PO BID 02/27/2012 No S top Date Active Endocet 10 mg-325 mg tablet RxNorm: 3063934 1 Tablet(s) PO QID 02/0203/27/2012 Inactive as needed for severe pain Endocet 10 mg-325 mg tablet RxNorm: 6204504 1 Tablet(s) PO QID 01/0302/26/2012 Inactive as needed for severe pain Valium 10 mg tablet RxNorm: 348219 1 Tablet(s) PO BID 01/29/2012 No S top Date Active Protonix 40 mg tablet,delayed release RxNorm: 009236 1 Tablet(s ) PO QD 01/28/2012 07/21/2012 Inactive metformin ER 500 mg tablet,extended release 24 hr RxNorm: 86 0977 1 Tablet(s) PO QD 12/26/2011 07/20/2012 Inactive Trazadone 150 mg Tablet RxNorm: 1 Tablet(s) PO QHS prn sleep 1 04/23/2012 Inactive Endocet 10 mg-325 mg tablet RxNorm: 0861529 1 Tablet(s) PO QID 12/0301/24/2012 Inactive as needed for severe pain Nexium 40 mg capsule,delayed release RxNorm: 829826 1 Capsule(s ) PO QD 12/26/2011 01/27/2012 Inactive Symbicort 160 mcg-4.5 mcg/actuation HFA Aerosol Inhaler RxNo rm: 9805215 2 Puff(s) INH BID 12/04/2011 07/21/2012 Inactive Endocet 10 mg-325 mg tablet RxNorm: 8054494 1 Tablet(s) PO QID 11/0312/25/2011 Inactive as needed for severe pain metformin ER 500 mg tablet,extended release 24 hr RxNorm: 86 0977 1 Tablet(s) PO QD 11/20/2011 12/19/2011 Inactive metformin ER 500 mg tablet,extended release 24 hr RxNorm: 86 0977 1 Tablet(s) PO QD 11/20/2011 11/19/2011 Inactive amitriptyline 100 mg tablet RxNorm: 447558 Tablet(s) PO QHS 1 a nd 1/2 tabs QHS 11/12/2011 11/13/2011 Inactive Valium 10 mg tablet RxNorm: 680128 1 Tablet(s) PO BID 11/09/2011 No S top Date Active Endocet 10 mg-325 mg tablet RxNorm: 8923674 1 Tablet(s) PO QID 10/0211/14/2011 Inactive as needed for severe pain Aricept 10 mg Tab RxNorm: 334905 1 Tablet(s) PO QD 10/05/2011 013 Inactive Valium 10 mg tablet RxNorm: 182008 1 Tablet(s) PO BID 10/05/2011 No S top Date Active Endocet 10 mg-325 mg Tab RxNorm: 7772047 1 Tablet(s) PO QID 012 10/09/2011 Inactive as needed for severe pain Aricept 10 mg Tab RxNorm: 064098 1 Tablet(s) PO QD 08/14/2011 012 Inactive Endocet 10 mg-325 mg Tab RxNorm: 6229513 1 Tablet(s) PO QID 012 08/31/2011 Inactive as needed for severe pain Valium 10 mg Tab RxNorm: 144750 1 Tablet(s) PO BID 08/02/2011 No Stop Date Active propranolol 60 mg tablet RxNorm: 818236 1 Tablet(s) PO BID 07/26/19 12 09/11/2011 Inactive amitriptyline 100 mg tablet RxNorm: 021333 Tablet(s) PO QHS 1 a nd /2 tabs QHS 06/20/2011 09/11/2011 Inactive buspirone 10 mg tablet RxNorm: 337338 1 Tablet(s) PO BID 06/18/2011 0 09/15/2011 Inactive propranolol 60 mg Tab RxNorm: 643800 1 Tablet(s) PO BID 06/18/2011 Inactive gabapentin 800 mg Tab RxNorm: 109518 1 Tablet(s) PO BID 06/18/2011 Inactive ropinirole 2 mg tablet RxNorm: 217389 1 Tablet(s) PO QHS 05/29/2011 0 08/26/2011 Inactive trimethoprim 100 mg Tab RxNorm: 749991 1 Tablet(s) PO QHS 05/29/2011 07/21/2012 Inactive Endocet 10 mg-325 mg Tab RxNorm: 6994725 1 Tablet(s) PO QID 012 2011 Inactive as needed for severe pain Valium 10 mg Tab RxNorm: 813705 1 Tablet(s) PO QHS N eed to take med as prescribed. this is a 40 day RX. No early fills. 05/17/2011 05/20/2018 Inactive propranolol 60 mg Tab RxNorm: 660468 1 Tablet(s) PO BID 04/16/2011 Inactive Neurontin 800 mg Tab RxNorm: 335322 1 Tablet(s) PO QHS 04/05/201103/2011 Inactive Endocet 10 mg-325 mg Tab RxNorm: 2139377 1 Tablet(s) PO QID 012 05/02/2011 Inactive as needed for severe pain oxycodone-acetaminophen 10 mg-325 mg tablet RxNorm: 6879197 1 Ta blet(s) PO Q4H 03/28/2011 05/19/2012 Inactive Valium 10 mg Tab RxNorm: 045595 1 Tablet(s) PO QHS 03/28/2011 012 Inactive buspirone 10 mg Tab RxNorm: 684172 1 Tablet(s) PO BID 03/27/201106/02 Inactive propranolol 60 mg Tab RxNorm: 580258 1 Tablet(s) PO BID 03/19/2011 Inactive Klor-Con M20 20 mEq Tab RxNorm: 5357707 1 Tablet(s) PO QD 03/19/2011 07/21/2012 Inactive Aricept 10 mg Tab RxNorm: 201922 1 Tablet(s) PO QD 02/27/2011 012 Inactive propranolol 60 mg Tab RxNorm: 023203 1 Tablet(s) PO BID 02/19/2011 Inactive omeprazole 40 mg capsule,delayed release RxNorm: 729047 1 Capsu le(s) PO BID 01/24/2011 05/23/2011 Inactive clindamycin 300 mg capsule RxNorm: 867104 1 Capsule(s) PO TID 01/2402/02/2011 Inactive propranolol 60 mg Tab RxNorm: 984953 1 Tablet(s) PO BID 01/22/2011 No Stop Date Active nystatin 100,000 unit/g Topical Cream RxNorm: 069389 Applicatio n TOP BID 01/15/2011 01/14/2011 Inactive to rash for 2-4 week s Diflucan 200 mg Tab RxNorm: 820044 1 Tablet(s) PO QD 01/15/201101/28 Inactive buspirone 10 mg Tab RxNorm: 672475 1 Tablet(s) PO BID 01/08/201103/05 Inactive Valium 10 mg Tab RxNorm: 594240 1 Tablet(s) PO QHS 01/05/2011 012 Inactive Diflucan 200 mg Tab RxNorm: 512882 1 Tablet(s) PO QD 01/01/201101/14 Inactive Diflucan 200 mg Tab RxNorm: 505072 1 Tablet(s) PO QD 12/18/201012/31 Inactive Valium 10 mg Tab RxNorm: 411529 1 Tablet(s) PO QHS 12/12/2010 011 Inactive Diflucan 200 mg Tab RxNorm: 865344 1 Tablet(s) PO QD 12/07/201012/18 Inactive Aricept 10 mg Tab RxNorm: 802134 1 Tablet(s) PO QD 11/20/2010 011 Inactive ropinirole 1 mg Tab RxNorm: 672039 1 Tablet(s) PO QHS 11/16/201005/03 Inactive enalapril maleate 5 mg Tab RxNorm: 817899 1 Tablet(s) PO QD 011 05/20/2018 Inactive buspirone 10 mg Tab RxNorm: 844515 1 Tablet(s) PO BID 11/16/201012/02 Inactive Valium 10 mg Tab RxNorm: 905075 1 Tablet(s) PO QHS 11/07/2010 011 Inactive Pyridium 100 mg Tab RxNorm: 2808324 1 Tablet(s) PO TID 11/02/201004/2010 Inactive Macrobid 100 mg Cap RxNorm: 9282066 1 Capsule(s) PO BID 11/02/2010 Inactive buspirone 10 mg Tab RxNorm: 678628 1 Tablet(s) PO QHS 10/18/201005/02 Inactive propranolol 60 mg Tab RxNorm: 240886 1 Tablet(s) PO BID 09/18/2010 Inactive Valium 10 mg Tab RxNorm: 112121 1 Tablet(s) PO QHS 09/05/2010 011 Inactive Aricept 10 mg Tab RxNorm: 990374 1 Tablet(s) PO QD 08/14/2010 011 Inactive Valium 10 mg Tab RxNorm: 510911 1 Tablet(s) PO QHS 06/26/2010 011 Inactive ropinirole 1 mg Tab RxNorm: 440361 1 Tablet(s) PO QHS 06/19/201010/02 Inactive omeprazole 40 mg Cap, delayed release RxNorm: 724554 1 Capsule( s) PO QD 06/07/2010 10/04/2010 Inactive Endocet 10 mg-325 mg Tab RxNorm: 1824078 1 Tablet(s) PO QID as needed for severe pain 06/07/2010 03/07/2011 Inactive Endocet 10 mg-325 mg Tab RxNorm: 7050377 1 Tablet(s) PO QID as needed for severe pain 05/04/2010 06/02/2010 Inactive Valium 10 mg Tab RxNorm: 115906 1 Tablet(s) PO QHS 05/01/2010 011 Inactive propranolol 60 mg Tab RxNorm: 273250 1 Tablet(s) PO BID 04/03/2010 Inactive Valium 10 mg Tab RxNorm: 303087 1 Tablet(s) PO QHS 03/28/2010 011 Inactive omeprazole 40 mg Cap, Delayed Release RxNorm: 855166 1 Capsule( s) PO QD 03/28/2010 06/06/2010 Inactive Endocet 10 mg-325 mg Tab RxNorm: 1694677 1 Tablet(s) PO QID prn ari n 03/27/2010 05/20/2018 Inactive Valium 10 mg Tab RxNorm: 708959 1 Tablet(s) PO QHS 02/20/2010 011 Inactive Diflucan 100 mg Tab RxNorm: 577830 1 Tablet(s) PO BID 01/23/2010 1203/2009 Inactive Diflucan 100 mg Tab RxNorm: 587391 1 Tablet(s) PO BID 01/05/201001/02 Inactive Aricept 10 mg Tab RxNorm: 565537 1 Tablet(s) PO QD 12/01/2009 011 Inactive OxyContin 20 mg 12 hr Tab RxNorm: 0363194 1 Tablet(s) PO BID 200904/05/2010 Inactive oxycodone-acetaminophen 10 mg-325 mg Tab RxNorm: 9953884 1 Table t(s) PO Q4H 11/22/2009 11/26/2009 Inactive Phenergan 25 mg Tab RxNorm: 270955 1 Tablet(s) PO PRN MIGRAINE 11/0303/07/2011 Inactive Demerol 100 mg Tab RxNorm: 560499 1 Tablet(s) PO PRN MIGRAINE 11/2203/07/2011 Inactive Oxycodone-Acetaminophen 10 mg-325 mg Tab RxNorm: 7089471 1 Table t(s) PO Q4H 10/11/2009 10/15/2009 Inactive Percocet 10 mg-325 mg Tab RxNorm: 4056349 1 Tablet(s) PO Q4H 200910/24/2009 Inactive propranolol 60 mg Tab RxNorm: 060706 1 Tablet(s) PO BID 08/29/2009 Inactive Valium 10 mg Tab RxNorm: 494889 1 Tablet(s) PO QHS 08/16/2009 010 Inactive Keflex 500 mg Cap RxNorm: 168445 1 Capsule(s) PO BID 07/25/200907/31 Inactive Hydroxyzine 25 mg Tab RxNorm: 625478 1 Tablet(s) PO TID 07/25/2009 Inactive Prednisone 20 mg Tab RxNorm: 456712 1 Tablet(s) PO BID 07/25/2009 Inactive Demerol 100 mg Tab RxNorm: 524482 1 Tablet(s) PO PRN MIGRAINE 07/25 No Stop Date Active Ropinirole 1 mg Tab RxNorm: 085935 1 Tablet(s) PO HS 07/20/200902/14 Inactive Valium 10 mg Tab RxNorm: 810366 1 Tablet(s) PO QHS 07/18/2009 010 Inactive Endocet 10 mg-325 mg Tab RxNorm: 5606614 1 Tablet(s) PO TID 010 07/07/2009 Inactive Demerol 100 mg Tab RxNorm: 342970 1 Tablet(s) PO PRN MIGRAINE 06/08 No Stop Date Active Ropinirole 1 mg Tab RxNorm: 044267 1 Tablet(s) PO HS 05/16/200907/14 Inactive ipratropium-albuterol 0.5 mg-3 mg(2.5 mg base)/3 mL ne bulization soln RxNorm: 1080633 1 Unit Dose INH Q4H as needed No Start Date Active MagOx 400 mg (241.3 mg magnesium) tablet RxNorm: 759187 1 Table t(s) PO BID No Start Date Active Vitamin B12 1000mcg Tablet RxNorm: 1 Tablet(s) PO QD No Start Date Active Vitamin D3 5,000 unit tablet RxNorm: 020617 1 Tablet(s) PO QD No Star t Date Active Tylenol Arthritis Pain 650 mg tablet,extended release RxNorm : 8056019 1 Tablet(s) PO Q4H No Start Date Active Lotrimin AF 2 % topical powder RxNorm: 908492 1 Application TOP BID No Start Date Active enalapril maleate 5 mg Tab RxNorm: 440061 1 Tablet(s) PO QD No Star t Date 07/20/2012 Inactive Demerol 100 mg Tab RxNorm: 771329 Tablet(s) PO PRN MIGRAINE No Star t Date 06/02/2009 Inactive metformin 500 mg tablet RxNorm: 549876 1 Tablet(s) PO QD No Start D ate 04/05/2013 Inactive Breo Ellipta 100 mcg-25 mcg/dose powder for inhalation RxNor m: 2541574 1 Puff(s) INH BID No Start Date 01/04/2016 Inactive Mag-Oxide 400 mg Tab RxNorm: 137980 1 Tablet(s) PO QD No Start Date 0 07/21/2012 Inactive Cipro 500 mg Tab RxNorm: 835469 1 Tablet(s) PO QD No Start Date 04/05 Inactive Ativan 0.5 mg tablet RxNorm: 141167 1 Tablet(s) PO TID as needed No Start Date 05/06/2019 Inactive melatonin 3 mg tablet RxNorm: 111330 2 Tablet(s) PO QHS No Start Da te 08/19/2018 Inactive buspirone 10 mg Tab RxNorm: 287064 1 Tablet(s) PO QD No Start Date Inactive sucralfate 100 mg/mL Oral Susp RxNorm: 198849 2 Teaspoon(s) PO QID No Start Date 07/21/2012 Inactive hydrocodone 5 mg-acetaminophen 325 mg tablet RxNorm: 505999 1 Tablet(s) PO Q4H as needed No Start Date 08/19/2018 Inactive Amaryl 2 mg tablet RxNorm: 641975 1 Tablet(s) PO BID No Start Date Inactive OxyContin 20 mg 12 hr Tab RxNorm: 6282936 1 Tablet(s) PO BID No Sta rt Date 11/27/2009 Inactive propranolol 40 mg tablet RxNorm: 333448 1 Tablet(s) PO QID No Start Date 01/19/2018 Inactive Trazadone 150 mg Tablet RxNorm: 1-2 Tablet(s) PO QHS prn sleep No Start Date 08/09/2010 Inactive propranolol 60 mg Tab RxNorm: 223115 1/2 Tablet(s) PO BID No Start Date 01/21/2011 Inactive insulin NPH and regular human subcutaneous RxNorm: 2770394 subcu taneous No Start Date 11/20/2018 Inactive Ativan 0.5 mg tablet RxNorm: 760113 1 Tablet(s) PO QID No Start Date 06/18/2016 Inactive Vasotec 5 mg Tab RxNorm: 280659 1 Tablet(s) PO BID No Start Date 06/2011 Inactive Toprol XL 50 mg tablet,extended release RxNorm: 278725 1 Tablet (s) PO BID No Start Date 04/05/2013 Inactive Ativan 0.5 mg tablet RxNorm: 895149 1 Tablet(s) PO TID No Start Date 05/25/2016 Inactive Klor-Con M20 20 mEq Tab RxNorm: 5775751 1 Tablet(s) PO QD No Start Date 03/19/2011 Inactive sumatriptan 100 mg tablet RxNorm: 031899 1 Tablet(s) PO at headache onset--repeat in 2hrs if remains No Start Date 07/21/2012 Inactive propranolol 60 mg Tab RxNorm: 069974 1 Tablet(s) PO BID No Start Da te 08/28/2009 Inactive Cholestyramine Light 4 gram Oral Powder RxNorm: 4638957 1 Unit Dose PO QD in water No Start Date 07/21/2012 Inactive nystatin 100,000 unit/g Topical Powder RxNorm: 433047 Applicati on TOP BID No Start Date 07/21/2012 Inactive vitamin L57-kusfl acid sublingual RxNorm: sublingual No Start Date 07/05/2013 Inactive cyclobenzaprine 5 mg tablet RxNorm: 296848 1/2-1 Tablet (s) PO TID as needed for muscle spasm No Start Date 07/18/2017 Inactive tramadol 50 mg tablet RxNorm: 516671 2 Tablet(s) PO TID as need ed for pain No Start Date 09/01/2014 Inactive aspirin 81 mg Tab RxNorm: 542846 1 Tablet(s) PO QOD No Start Date 04/2013 Inactive Vitamin B12 1000mcg Tablet RxNorm: 1 Tablet(s) PO QD No Start Date 07/18/2017 Inactive cholestyramine (with sugar) 4 gram oral powder RxNorm: 99918 3 1 Unit(s) PO QD as needed No Start Date 05/20/2018 Inactive ProAir HFA 90 mcg/Actuation Aerosol Inhaler RxNorm: 651970 2 Puff(s) INH Q4H prn shortness of breath No Start Date 07/21/2012 Inactive pravastatin 10 mg Tab RxNorm: 886100 1 Tablet(s) PO QD No Start Date 07/21/2012 Inactive gabapentin 800 mg Tab RxNorm: 833204 1 Tablet(s) PO BID No Start Da te 06/03/2011 Inactive Endocet 10 mg-325 mg Tab RxNorm: 1508050 1 Tablet(s) PO TID No Star t Date 06/02/2009 Inactive Naproxen 500 mg Tab RxNorm: 921980 1 Tablet(s) PO BID No Start Date 0 04/05/2010 Inactive Valium 10 mg Tab RxNorm: 716621 1 Tablet(s) PO BID No Start Date 07/04 Inactive enalapril maleate 5 mg Tab RxNorm: 291796 1 Tablet(s) PO QD No Star t Date 11/15/2010 Inactive doxepin 10 mg capsule RxNorm: 5850678 2 Capsule(s) PO QHS No Start Date 09/17/2018 Inactive MS Contin 15 mg Tab RxNorm: 961520 1 Tablet(s) PO BID No Start Date 0 09/18/2010 Inactive buspirone 5 mg tablet RxNorm: 712857 1 Tablet(s) PO TID No Start Da te 12/01/2013 Inactive [place] 3 Fish Oil Cap RxNorm: 1 Capsule(s) PO QD No Start Date 07/03 Inactive enalapril maleate 5 mg Tab RxNorm: 676775 1/2 Tablet(s) PO QD No St art Date 03/07/2011 Inactive Lyrica 75 mg capsule RxNorm: 140973 1 Capsule(s) PO QHS No Start Da te 02/08/2014 Inactive Lopressor 100 mg tablet RxNorm: 689865 1 Tablet(s) PO BID No Start Date 06/08/2018 Inactive Lantus Solostar U-100 Insulin 100 unit/mL (3 mL) subcu taneous pen RxNorm: 191963 45 Unit(s) SQ QAM No Start Date 05/20/2018 Inactive aspirin 81 mg tablet RxNorm: 792006 1 Tablet(s) PO QD No Start Date 0 09/14/2015 Inactive diltiazem CD 240 mg capsule,extended release 24 hr RxNorm: 8 18021 1 Capsule(s) PO QD No Start Date 05/25/2019 Inactive insulin NPH isophane U-100 human subcutaneous RxNorm: 829818 beckwith bcutaneous No Start Date 04/20/2019 Inactive sumatriptan 100 mg tablet RxNorm: 334876 1 Tablet(s) PO at headache onset. May repeat 1 in two hours if headache remains. Max of 2 per 24 hours No Start Date 04/01/2018 Inactive gabapentin 300 mg capsule RxNorm: 489235 1 Capsule(s) PO QHS No Sta rt Date 02/04/2018 Inactive Topamax 25 mg Tab RxNorm: 331438 Oral No Start Date 03/07/2011 In active Senokot-S 8.6 mg-50 mg Tab RxNorm: 6474000 1 Tablet(s) PO QD No Sta rt Date 03/07/2011 Inactive metformin ER 500 mg 24 hr tablet,extended release RxNorm: 18 31475 1 Tablet(s) PO QD No Start Date 05/20/2018 Inactive Symbicort 80 mcg-4.5 mcg/actuation HFA Aerosol Inhaler RxNor m: 6087641 2 Puff(s) INH BID No Start Date 04/05/2013 Inactive metoprolol tartrate 25 mg tablet RxNorm: 691258 1 Tablet(s) PO BID No Start Date 05/20/2019 Inactive propranolol 60 mg Tab RxNorm: 478905 1/2 Tablet(s) PO BID No Start Date 07/21/2012 Inactive metformin ER 500 mg 24 hr tablet,extended release RxNorm: 18 58921 2 Tablet(s) PO QD No Start Date 12/16/2017 Inactive Insulin Syringe 1 mL 29 gauge x 1/2" RxNorm: 2 s yringes daily with insulin Dx: E11.65 No Start Date 10/07/2018 Inactive Amitriptyline 75 mg Tab RxNorm: 292588 1 Tablet(s) PO QHS No Start Date 10/23/2009 Inactive donepezil 10 mg Tab RxNorm: 727340 1 Tablet(s) PO QD No Start Date Inactive Lantus Solostar U-100 Insulin 100 unit/mL (3 mL) subcu taneous pen RxNorm: 668802 36 Unit(s) SQ QAM No Start Date 12/24/2017 Inactive Miacalcin 200 unit/Actuation Nasal [place] Aerosol RxNorm: 261 204 1 [place] NASAL QD Alternate nostrils each day No Start Date 04/05/2010 Inactive Amitriptyline 150 mg Tab RxNorm: 693801 1 Tablet(s) PO QHS No Start Date 01/04/2010 Inactive Bystolic 5 mg tablet RxNorm: 303808 1 Tablet(s) PO QD No Start Date 0 08/13/2012 Inactive Aricept 10 mg Tab RxNorm: 997996 1 Tablet(s) PO QD No Start Date 11/03 Inactive Lantus Solostar U-100 Insulin 100 unit/mL (3 mL) subcu taneous pen RxNorm: 265274 50 Unit(s) SQ QAM No Start Date 08/27/2018 Inactive albuterol sulfate 2.5 mg/3 mL (0.083 %) Neb Solution RxNorm: 771119 1 Unit Dose INH QID as needed No Start Date 08/23/2015 Inactive Symbicort 160 mcg-4.5 mcg/actuation HFA Aerosol Inhaler RxNo rm: 9750917 2 Puff(s) INH BID No Start Date 12/03/2011 Inactive Savella 50 mg Tab RxNorm: 742473 1 Tablet(s) PO BID No Start Date 04/2010 Inactive amitriptyline 100 mg Tab RxNorm: 884611 1 1/2 Tablet(s) PO QHS No S tart Date 06/19/2011 Inactive nystatin 100,000 unit/g Topical Cream RxNorm: 487376 Ap plication TOP BID to rash for 2-4 weeks No Start Date 01/14/2011 Inactive Trelegy Ellipta 100 mcg-62.5 mcg-25 mcg powder for inhalatio n RxNorm: 3032107 1 Puff(s) INH QD No Start Date 12/16/2017 Inactive Lyrica 150 mg capsule RxNorm: 715739 1 Capsule(s) PO QHS No Start D ate 12/04/2015 Inactive sennosides 8.6 mg tablet RxNorm: 002597 1 Tablet(s) PO BID No Start Date 09/07/2018 Inactive metformin ER 500 mg tablet,extended release 24 hr RxNorm: 86 0975 1 Tablet(s) PO QD No Start Date 10/22/2017 Inactive Fish Oil 1,000 mg Cap RxNorm: 1 Capsule(s) PO QD No Start Date 06/2011 Inactive Zyrtec 10 mg Tab RxNorm: 0379949 1 Tablet(s) PO QD No Start Date 07/03 Inactive albuterol sulfate HFA 90 mcg/actuation aerosol inhaler RxNor m: 0484307 2 Puff(s) INH Q4H as needed for cough No Start Date 09/30/2013 Inactive trazodone 150 mg tablet RxNorm: 856157 1 Tablet(s) PO QHS No Start Date 07/21/2012 Inactive Spiriva with HandiHaler 18 mcg & inhalation capsules RxNorm: 740056 1 Capsule(s) INH QD No Start Date 04/05/2013 Inactive Coreg 3.125 mg Tab RxNorm: 467300 1 Tablet(s) PO BID No Start Date Inactive Phenergan 25 mg Tab RxNorm: 653240 Tablet(s) PO PRN MIGRAINE No Sta rt Date 11/21/2009 Inactive Vitamin D 50,000 unit Cap RxNorm: 0124472 1 Capsule(s) PO QW No Sta rt Date 03/07/2011 Inactive Januvia 100 mg tablet RxNorm: 012655 1 Tablet(s) PO QD No Start Date 10/25/2015 Inactive Eliquis 5 mg tablet RxNorm: 7813345 1 Tablet(s) PO BID No Start Date 08/19/2018 Inactive Advair Diskus 500 mcg-50 mcg/Dose for Inhalation RxNorm: 048308 1 INH BID No Start Date 07/21/2012 Inactive Vitamin D3 5,000 unit tablet RxNorm: 160177 1 Tablet(s) PO QD No St art Date 07/18/2017 Inactive Amaryl 2 mg tablet RxNorm: 804247 1 Tablet(s) PO QD No Start Date 06/2015 Inactive Actos 30 mg tablet RxNorm: 409749 1 Tablet(s) PO QD No Start Date Inactive promethazine 25 mg tablet RxNorm: 020713 1 Tablet(s) PO Q4H prn N/V No Start Date 07/21/2012 Inactive ProAir HFA 90 mcg/actuation Aerosol Inhaler RxNorm: 931334 2 Puff(s) INH Q4H prn dyspnea No Start Date 07/21/2012 Inactive Dexilant 60 mg Capsule RxNorm: 875772 1 Capsule(s) PO QD No Start D ate 01/27/2012 Inactive Lantus Solostar U-100 Insulin 100 unit/mL (3 mL) subcu taneous pen RxNorm: 942883 38 Unit(s) SQ QAM No Start Date 05/20/2018 Inactive Valium 10 mg Tab RxNorm: 572282 1 Tablet(s) PO QHS AND PRN No Start Date 10/24/2009 Inactive ZOFRAN ODT 8 mg disintegrating tablet RxNorm: 709938 1 Tablet(s ) PO Q6H No Start [...] Date S ervice Location MICROALBUMIN URINE RANDOM 24228 MICRL MG/L 14.9 MG/L Unknown MICROALBUMIN URINE RANDOM 60210 XM.ALB/CRE 6.1 MG/GCR Unknown MICROALBUMIN URINE RANDOM 69162 CREAT MG/D 243 MG/DL Unknown MICROALBUMIN URINE RANDOM 98598 CRE/100 2.43 G/L 03/05 Unknown PROTEIN/CREAT URINE WITH RATIO 93443|93727 PROT R U 14 MG/D L 04/01/2014 Unknown PROTEIN/CREAT URINE WITH RATIO 27991|36849 CREAT R U 254 MG/ DL 04/01/2014 Unknown PROTEIN/CREAT URINE WITH RATIO 69057|70529 XRATIO P/C 55 MG/ G 04/01/2014 Unknown URINALYSIS 85597 PROTEIN UR NEG 04/28/2010 Unknown URINALYSIS 66556 HEMGLBN UR NEG 04/28/2010 Unknown URINALYSIS 48071 GLUCOSE UR NEG 04/28/2010 Unknown URINALYSIS 12725 KETONES UR NEG 04/28/2010 Unknown URINALYSIS 80521 PH U 5.5 04/28/2010 Unknown URINALYSIS 82269 SP GR U 1.025 04/28/2010 Unknown URINALYSIS 17247 BILRUBN UR NEG 04/28/2010 Unknown URINALYSIS 05192 LEUKO UR 2+ 04/28/2010 Unknown URINALYSIS 16555 NITRITE UR NEG 04/28/2010 Unknown MICR CUL? [id number] WBC/HPF 6-10 04/28/2010 Unknown MICR CUL? [id number] RBC/HPF 0-5 04/28/2010 Unknown MICR CUL? [id number] HYAL CAST 16-25 04/28/2010 Unknown MICR CUL? [id number] SP TO YOLIE? NO 04/28/2010 Unknown MICR CUL? [id number] APPEAR UR NORMAL 04/28/2010 Unknown MICR CUL? [id number] SQ EPI/LPF FEW 04/28/2010 Unknown Procedures Procedure Codes Date URINALYSIS NONAUTO W/O SCOPE CPT-4: 36977 04/16/2019 URINE CULTURE/ COLONY COUNT CPT-4: 42459 04/16/2019 CEFTRIAXONE SODIUM INJECTION CPT-4: J0696 04/16/2019 THER/PROPH/DIAG INJ SC/IM CPT-4: 07970 04/16/2019 DRAIN/INJECT JOINT/BURSA CPT-4: 32102 01/22/2019 TRIAMCINOLONE ACET INJ NOS CPT-4: J3301 01/22/2019 DEXAMETHASONE SODIUM PHOS CPT-4: J1100 01/22/2019 URINE CULTURE/ COLONY COUNT CPT-4: 63018 01/07/2019 URINALYSIS NONAUTO W/O SCOPE CPT-4: 40964 01/07/2019 CEFTRIAXONE SODIUM INJECTION CPT-4: J0696 01/07/2019 THER/PROPH/DIAG INJ SC/IM CPT-4: 65003 01/07/2019 FLU VACC PRSV FREE INC ANTIG 65 AND OLDER CPT-4: 65438 12/24/2018 FLU VACC PRSV FREE INC ANTIG 65 AND OLDER CPT-4: 08575 12/24/2018 ADMIN INFLUENZA VIRUS VAC CPT-4: G0008 12/24/2018 THER/PROPH/DIAG INJ SC/IM CPT-4: 86333 11/04/2018 KETOROLAC TROMETHAMINE INJ CPT-4: J1885 11/04/2018 PROMETHAZINE HCL INJECTION CPT-4: J2550 11/04/2018 PPPS, subseq visit CPT-4: G0439 09/18/2018 THER/PROPH/DIAG INJ SC/IM CPT-4: 72378 04/01/2018 KETOROLAC TROMETHAMINE INJ CPT-4: J1885 04/01/2018 PROMETHAZINE HCL INJECTION CPT-4: J2550 04/01/2018 URINE CULTURE/ COLONY COUNT CPT-4: 38747 03/17/2018 URINALYSIS NONAUTO W/O SCOPE CPT-4: 66318 03/17/2018 FLU VACC PRSV FREE INC ANTIG 65 AND OLDER CPT-4: 34670 12/17/2017 PNEUMOCOCCAL VACC 23 RANDALL IM CPT-4: 24878 12/17/2017 ADMIN INFLUENZA VIRUS VAC CPT-4: G0008 12/17/2017 ADMIN PNEUMOCOCCAL VACCINE CPT-4: G0009 12/17/2017 PPPS, subseq visit CPT-4: G0439 09/17/2017 THER/PROPH/DIAG INJ SC/IM CPT-4: 35035 08/26/2017 KETOROLAC TROMETHAMINE INJ CPT-4: J1885 08/26/2017 PROMETHAZINE HCL INJECTION CPT-4: J2550 08/26/2017 URINALYSIS NONAUTO W/O SCOPE CPT-4: 14826 07/19/2017 URINE CULTURE/ COLONY COUNT CPT-4: 73879 07/19/2017 CEFTRIAXONE SODIUM INJECTION CPT-4: J0696 07/19/2017 THER/PROPH/DIAG INJ SC/IM CPT-4: 29579 07/19/2017 THER/PROPH/DIAG INJ SC/IM CPT-4: 29501 07/19/2017 TRIAMCINOLONE ACET INJ NOS CPT-4: J3301 07/19/2017 PRESCRIP TRANSMIT VIA ERX SY CPT-4: G8553 05/07/2017 PRESCRIP TRANSMIT VIA ERX SY CPT-4: G8553 02/22/2017 PRESCRIP TRANSMIT VIA ERX SY CPT-4: G8553 01/23/2017 FLU VACC PRSV FREE INC ANTIG 65 AND OLDER CPT-4: 27839 12/20/2016 PNEUMOCOCCAL VACC 13 RANDALL IM CPT-4: 11770 12/20/2016 ADMIN INFLUENZA VIRUS VAC CPT-4: G0008 12/20/2016 ADMIN PNEUMOCOCCAL VACCINE CPT-4: G0009 12/20/2016 URINALYSIS NONAUTO W/O SCOPE CPT-4: 52194 10/08/2016 URINE CULTURE/ COLONY COUNT CPT-4: 01151 10/08/2016 PRESCRIP TRANSMIT VIA ERX SY CPT-4: G8553 10/08/2016 PRESCRIP TRANSMIT VIA ERX SY CPT-4: G8553 09/19/2016 PRESCRIP TRANSMIT VIA ERX SY CPT-4: G8553 08/20/2016 PRESCRIP TRANSMIT VIA ERX SY CPT-4: G8553 02/29/2016 KETOROLAC TROMETHAMINE INJ CPT-4: J1885 02/02/2016 THER/PROPH/DIAG INJ SC/IM CPT-4: 83623 02/02/2016 PROMETHAZINE HCL INJECTION CPT-4: J2550 02/02/2016 PRESCRIP TRANSMIT VIA ERX SY CPT-4: G8553 02/02/2016 FLU VACC PRSV FREE INC ANTIG 65 AND OLDER CPT-4: 31086 01/05/2016 PPPS, subseq visit CPT-4: G0439 01/05/2016 ADMIN INFLUENZA VIRUS VAC CPT-4: G0008 01/05/2016 URINE CULTURE/ COLONY COUNT CPT-4: 19958 12/05/2015 URINALYSIS NONAUTO W/O SCOPE CPT-4: 87348 12/05/2015 PRESCRIP TRANSMIT VIA ERX SY CPT-4: G8553 12/05/2015 PRESCRIP TRANSMIT VIA ERX SY CPT-4: G8553 10/26/2015 URINALYSIS NONAUTO W/O SCOPE CPT-4: 79524 10/05/2015 URINE CULTURE/ COLONY COUNT CPT-4: 02973 10/05/2015 PRESCRIP TRANSMIT VIA ERX SY CPT-4: G8553 10/05/2015 MD SERVICE REQUIRED FOR PMD CPT-4: G0372 09/15/2015 PRESCRIP TRANSMIT VIA ERX SY CPT-4: G8553 09/15/2015 SPECIAL REPORTS OR FORMS CPT-4: 97918 08/25/2015 PRESCRIP TRANSMIT VIA ERX SY CPT-4: G8553 07/05/2015 URINALYSIS NONAUTO W/O SCOPE CPT-4: 33725 03/30/2015 ASSAY, GLUCOSE, BLOOD QUANT CPT-4: 23036 03/30/2015 URINE CULTURE/ COLONY COUNT CPT-4: 69742 03/30/2015 PRESCRIP TRANSMIT VIA ERX SY CPT-4: G8553 03/30/2015 PRESCRIP TRANSMIT VIA ERX SY CPT-4: G8553 02/03/2015 FLU VACC PRSV FREE INC ANTIG 65 AND OLDER CPT-4: 21251 12/29/2014 ADMIN INFLUENZA VIRUS VAC CPT-4: G0008 12/29/2014 PRESCRIP TRANSMIT VIA ERX SY CPT-4: G8553 12/29/2014 PRESCRIP TRANSMIT VIA ERX SY CPT-4: G8553 09/02/2014 PROTEIN/CREAT URINE WITH RATIO CPT-4: 28863|81930 5 MICROALBUMIN QUANTITATIVE CPT-4: 39107 04/01/2014 PRESCRIP TRANSMIT VIA ERX SY CPT-4: G8553 03/16/2014 PRESCRIP TRANSMIT VIA ERX SY CPT-4: G8553 03/09/2014 THER/PROPH/DIAG INJ SC/IM CPT-4: 74422 03/01/2014 TRIAMCINOLONE ACET INJ NOS CPT-4: J3301 03/01/2014 PRESCRIP TRANSMIT VIA ERX SY CPT-4: G8553 02/09/2014 URINE CULTURE/ COLONY COUNT CPT-4: 32981 10/30/2013 URINALYSIS NONAUTO W/O SCOPE CPT-4: 04648 10/21/2013 URINE CULTURE/ COLONY COUNT CPT-4: 74435 10/21/2013 DESTRUCT PREMALG LESION (Cryosurgery) CPT-4: 35534 PRESCRIP TRANSMIT VIA ERX SY CPT-4: G8553 10/05/2013 URINALYSIS NONAUTO W/O SCOPE CPT-4: 04409 08/04/2013 URINE CULTURE/ COLONY COUNT CPT-4: 64277 08/04/2013 PRESCRIP TRANSMIT VIA ERX SY CPT-4: G8553 08/04/2013 THER/PROPH/DIAG INJ SC/IM CPT-4: 37113 07/13/2013 TRIAMCINOLONE ACET INJ NOS CPT-4: J3301 07/13/2013 PRESCRIP TRANSMIT VIA ERX SY CPT-4: G8553 05/27/2013 URINALYSIS NONAUTO W/O SCOPE CPT-4: 23240 05/25/2013 URINE CULTURE/ COLONY COUNT CPT-4: 57951 05/25/2013 THER/PROPH/DIAG INJ SC/IM CPT-4: 03221 05/04/2013 VITAMIN B12 INJECTION CPT-4: J3420 05/04/2013 THER/PROPH/DIAG INJ SC/IM CPT-4: 79202 04/17/2013 VITAMIN B12 INJECTION CPT-4: J3420 04/17/2013 THER/PROPH/DIAG INJ SC/IM CPT-4: 59184 04/17/2013 METHYLPREDNISOLONE 40 MG INJ CPT-4: J1030 04/17/2013 TRIAMCINOLONE ACET INJ NOS CPT-4: J3301 04/17/2013 URINALYSIS NONAUTO W/O SCOPE CPT-4: 95507 04/06/2013 URINE CULTURE/ COLONY COUNT CPT-4: 36361 04/06/2013 PRESCRIP TRANSMIT VIA ERX SY CPT-4: G8553 04/06/2013 KETOROLAC TROMETHAMINE INJ CPT-4: J1885 06/25/2012 PROMETHAZINE HCL INJECTION CPT-4: J2550 06/25/2012 THER/PROPH/DIAG INJ SC/IM CPT-4: 05516 06/25/2012 THER/PROPH/DIAG INJ SC/IM CPT-4: 51606 06/24/2012 METHYLPREDNISOLONE 40 MG INJ CPT-4: J1030 06/24/2012 TRIAMCINOLONE ACET INJ NOS CPT-4: J3301 06/24/2012 URINE CULTURE/ COLONY COUNT CPT-4: 51173 06/24/2012 THER/PROPH/DIAG INJ SC/IM CPT-4: 50395 05/20/2012 KETOROLAC TROMETHAMINE INJ CPT-4: J1885 05/20/2012 THER/PROPH/DIAG INJ SC/IM CPT-4: 82051 05/20/2012 PROMETHAZINE HCL INJECTION CPT-4: J2550 05/20/2012 DRAIN/INJECT JOINT/BURSA CPT-4: 85351 02/13/2012 METHYLPREDNISOLONE 40 MG INJ CPT-4: J1030 02/13/2012 TRIAMCINOLONE ACET INJ NOS CPT-4: J3301 02/13/2012 THER/PROPH/DIAG INJ SC/IM CPT-4: 16600 11/14/2011 METHYLPREDNISOLONE 40 MG INJ CPT-4: J1030 11/14/2011 TRIAMCINOLONE ACET INJ NOS CPT-4: J3301 11/14/2011 THER/PROPH/DIAG INJ SC/IM CPT-4: 79877 09/12/2011 KETOROLAC TROMETHAMINE INJ CPT-4: J1885 09/12/2011 THER/PROPH/DIAG INJ SC/IM CPT-4: 69257 08/09/2011 METHYLPREDNISOLONE 40 MG INJ CPT-4: J1030 08/09/2011 TRIAMCINOLONE ACET INJ NOS CPT-4: J3301 08/09/2011 URINE CULTURE/ COLONY COUNT CPT-4: 44661 07/03/2011 URINE CULTURE/ COLONY COUNT CPT-4: 31890 06/04/2011 THER/PROPH/DIAG INJ SC/IM CPT-4: 28273 05/03/2011 METHYLPREDNISOLONE 40 MG INJ CPT-4: J1030 05/03/2011 TRIAMCINOLONE ACET INJ NOS CPT-4: J3301 05/03/2011 URINALYSIS NONAUTO W/O SCOPE CPT-4: 95268 01/24/2011 URINE CULTURE/ COLONY COUNT CPT-4: 66257 01/24/2011 FLUZONE, 5ML (Medicare) CPT-4: Q2038 01/02/2011 ADMIN INFLUENZA VIRUS VAC CPT-4: G0008 01/02/2011 ASSAY, GLUCOSE, BLOOD QUANT CPT-4: 61682 12/07/2010 URINE CULTURE/ COLONY COUNT CPT-4: 73931 11/02/2010 THER/PROPH/DIAG INJ SC/IM CPT-4: 53660 10/18/2010 METHYLPREDNISOLONE 40 MG INJ CPT-4: J1030 10/18/2010 TRIAMCINOLONE ACET INJ NOS CPT-4: J3301 10/18/2010 TRIAMCINOLONE ACET INJ NOS CPT-4: J3301 05/11/2010 METHYLPREDNISOLONE 40 MG INJ CPT-4: J1030 05/11/2010 THER/PROPH/DIAG INJ SC/IM CPT-4: 95474 05/11/2010 TRIAMCINOLONE ACET INJ NOS CPT-4: J3301 02/09/2010 METHYLPREDNISOLONE 40 MG INJ CPT-4: J1030 02/09/2010 THER/PROPH/DIAG INJ SC/IM CPT-4: 90620 02/09/2010 MD SERVICE REQUIRED FOR PMD CPT-4: G0372 02/09/2010 FLU VACCINE 3 YRS & > IM UP 64 CPT-4: 21223 0 PNEUMOCOCCAL VACC 23 RANDALL IM CPT-4: 44222 12/07/2009 ADMIN INFLUENZA VIRUS VAC CPT-4: G0008 12/07/2009 ADMIN PNEUMOCOCCAL VACCINE CPT-4: G0009 12/07/2009 TRIAMCINOLONE ACET INJ NOS CPT-4: J3301 05/26/2009 THER/PROPH/DIAG INJ SC/IM CPT-4: 42284 05/26/2009 METHYLPREDNISOLONE 80 MG INJ CPT-4: J1040 [...] 1: 114/72 Code: 8480-6 BMI: 37.8 Code: 04446-7 Heart Rate 1: 72 bpm Height: 5'3" [...] 1: 106/68 Code: 8480-6 BMI: 35.7 Code: 21188-0 Heart Rate 1: 72 bpm Height: 5'4" Respiratory Rate: 20 bpm SpO2: 98% Tempera ture: 36.7 (C) / 98.0 (F) Weight: 208 lbs 04/16/2018 Blood Pressure 1: 132/82 Code: 8480-6 BMI: 37.9 Code: 70405-2 Heart Rate 1: 72 bpm Height: 5'4" Respiratory Rate: 20 bpm SpO2: 96% Tempera ture: 37.1 (C) / 98.8 (F) Weight: 221 lbs 04/01/2018 Blood Pressure 1: 150/90 Code: 8480-6 Heart Rate 1: 72 bpm Respiratory Rate: 22 bpm SpO2: 95% Temperature: 36.4 (C) / 97.6 (F) We ight: 216 lbs 03/06/2018 Blood Pressure 1: 126/78 Code: 8480-6 BMI: 37.4 Code: 40362-3 Heart Rate 1: 68 bpm Height: 5'4" [...] ight: 222 lbs 12/25/2017 BMI: 37.8 Code: 81907-2 Heart Rate 1: 76 bpm Height: 5 '4" Respiratory Rate: 20 bpm SpO2: 96% Temperature: 37.3 (C) / 99.2 (F) Weight: 220 lbs 12/17/2017 Blood Pressure 1: 132/78 Code: 8480-6 BMI: 37.2 Code: 21797-6 Heart Rate 1: 88 bpm Height: 5'4" Respiratory Rate: 20 bpm SpO2: 96% Tempera ture: 37.3 (C) / 99.2 (F) Weight: 217 lbs 10/30/2017 Blood Pressure 1: 114/68 Code: 8480-6 BMI: 36.4 Code: 57830-4 Heart Rate 1: 72 bpm Height: 5'4" Respiratory Rate: 22 bpm SpO2: 96% Tempera ture: 36.8 (C) / 98.2 (F) Weight: 212 lbs 10/23/2017 Blood Pressure 1: 124/78 Code: 8480-6 Heart Rate 1: 72 bpm Respiratory Rate: 24 bpm SpO2: 94% Temperature: 36.6 (C) / 97.9 (F) We ight: 212 lbs 09/17/2017 Blood Pressure 1: 128/82 Code: 8480-6 BMI: 37.4 Code: 55537-7 Heart Rate 1: 72 bpm Height: 5'4" Respiratory Rate: 20 bpm SpO2: 96% Tempera ture: 37.0 (C) / 98.6 (F) Weight: 218 lbs 07/19/2017 Blood Pressure 1: 136/84 Code: 8480-6 BMI: 36.6 Code: 82036-8 Heart Rate 1: 88 bpm Height: 5'4" Respiratory Rate: 20 bpm SpO2: 97% Tempera ture: 36.7 (C) / 98.0 (F) Weight: 213 lbs 05/29/2017 Blood Pressure 1: 136/82 Code: 8480-6 BMI: 36.7 Code: 47846-7 Heart Rate 1: 72 bpm Height: 5'4" Respiratory Rate: 20 bpm SpO2: 97% Tempera ture: 36.9 (C) / 98.4 (F) Weight: 214 lbs 05/07/2017 Blood Pressure 1: 122/80 Code: 8480-6 BMI: 37.1 Code: 27642-3 Heart Rate 1: 80 bpm Height: 5'4" Respiratory Rate: 24 bpm SpO2: 96% Tempera ture: 36.1 (C) / 97.0 (F) Weight: 216 lbs 03/18/2017 BMI: 36.7 Code: 31158-5 Heart Rate 1: 80 bpm Height: 5 '4" Respiratory Rate: 22 bpm SpO2: 95% Temperature: 36.9 (C) / 98.4 (F) Weight: 214 lbs 02/27/2017 Blood Pressure 1: 146/94 Code: 8480-6 BMI: 36.6 Code: 81952-4 Heart Rate 1: 76 bpm Height: 5'4" Respiratory Rate: 22 bpm SpO2: 97% Tempera ture: 36.6 (C) / 97.9 (F) Weight: 213 lbs 02/22/2017 Blood Pressure 1: 126/90 Code: 8480-6 BMI: 36.4 Code: 88648-1 Heart Rate 1: 84 bpm Height: 5'4" Respiratory Rate: 22 bpm SpO2: 95% Tempera ture: 36.9 (C) / 98.4 (F) Weight: 212 lbs 01/23/2017 Blood Pressure 1: 146/82 Code: 8480-6 BMI: 37.6 Code: 63812-0 Heart Rate 1: 96 bpm Height: 5'4" Respiratory Rate: 20 bpm SpO2: 96% Tempera ture: 36.9 (C) / 98.4 (F) Weight: 219 lbs 12/20/2016 Blood Pressure 1: 126/70 Code: 8480-6 BMI: 37.2 Code: 64431-5 Heart Rate 1: 76 bpm Height: 5'4" Respiratory Rate: 22 bpm SpO2: 95% Tempera ture: 36.6 (C) / 97.8 (F) Weight: 217 lbs 10/08/2016 Blood Pressure 1: 128/82 Code: 8480-6 BMI: 36.9 Code: 56363-1 Heart Rate 1: 76 bpm Height: 5'4" Respiratory Rate: 20 bpm SpO2: 95% Tempera ture: 37.0 (C) / 98.6 (F) Weight: 215 lbs 09/19/2016 Blood Pressure 1: 144/78 Code: 8480-6 BMI: 37.8 Code: 67369-8 Heart Rate 1: 76 bpm Height: 5'4" Respiratory Rate: 22 bpm SpO2: 95% Tempera ture: 37.0 (C) / 98.6 (F) Weight: 220 lbs 08/20/2016 Blood Pressure 1: 140/86 Code: 8480-6 BMI: 37.4 Code: 42631-4 Heart Rate 1: 80 bpm Height: 5'4" Respiratory Rate: 20 bpm SpO2: 95% Tempera ture: 36.9 (C) / 98.4 (F) Weight: 218 lbs 06/19/2016 Blood Pressure 1: 124/78 Code: 8480-6 BMI: 37.8 Code: 16092-0 Heart Rate 1: 74 bpm Height: 5'4" Respiratory Rate: 24 bpm SpO2: 96% Tempera ture: 36.9 (C) / 98.4 (F) Weight: 220 lbs 06/04/2016 Blood Pressure 1: 124/78 Code: 8480-6 BMI: 38.8 Code: 68316-5 Heart Rate 1: 72 bpm Height: 5'4" Respiratory Rate: 24 bpm SpO2: 95% Tempera ture: 36.8 (C) / 98.2 (F) Weight: 226 lbs 05/02/2016 Blood Pressure 1: 136/90 Code: 8480-6 BMI: 37.6 Code: 17784-5 Heart Rate 1: 72 bpm Height: 5'4" Respiratory Rate: 24 bpm SpO2: 96% Tempera ture: 36.9 (C) / 98.4 (F) Weight: 219 lbs 04/03/2016 Blood Pressure 1: 12678 Code: 8480-6 BMI: 38.1 Code: 24222-5 Heart Rate 1: 72 bpm Height: 5'4" Respiratory Rate: 22 bpm SpO2: 94% Tempera ture: 36.9 (C) / 98.4 (F) Weight: 222 lbs 02/29/2016 Blood Pressure 1: 132/78 Code: 8480-6 Heart Rate 1: 78 bpm Height: Respiratory Rate: 24 bpm SpO2: 95% Temperature: 36.4 (C) / 97.6 (F) We ight: 02/02/2016 Blood Pressure 1: 12478 Code: 8480-6 BMI: 37.6 Code: 82107-9 Heart Rate 1: 76 bpm Height: 5'4" Respiratory Rate: 20 bpm SpO2: 95% Tempera ture: 36.8 (C) / 98.2 (F) Weight: 219 lbs 01/05/2016 Blood Pressure 1: 126/70 Code: 8480-6 BMI: 37.1 Code: 06960-6 Heart Rate 1: 76 bpm Height: 5'4" Respiratory Rate: 20 bpm Temperature: 36 .6 (C) / 97.8 (F) Weight: 216 lbs 12/05/2015 Blood Pressure 1: 126/72 Code: 8480-6 BMI: 36.9 Code: 91967-3 Heart Rate 1: 92 bpm Height: 5'4" Respiratory Rate: 20 bpm Temperature: 36 .7 (C) / 98.1 (F) Weight: 215 lbs 10/26/2015 Blood Pressure 1: 142/80 Code: 8480-6 BMI: 36.4 Code: 18872-8 Heart Rate 1: 82 bpm Height: 5'4" Respiratory Rate: 24 bpm SpO2: 92% Tempera ture: 35.9 (C) / 96.7 (F) Weight: 212 lbs 10/05/2015 Blood Pressure 1: 136/82 Code: 8480-6 Heart Rate 1: 80 bpm Respiratory Rate: 18 bpm SpO2: 98% Temperature: 35.7 (C) / 96.3 (F) We ight: 214 lbs 09/15/2015 Blood Pressure 1: 11680 Code: 8480-6 BMI: 34.6 Code: 34486-3 Heart Rate 1: 76 bpm Height: 5'6" Respiratory Rate: 20 bpm Temperature: 36 .6 (C) / 97.9 (F) Weight: 211 lbs 08/24/2015 Blood Pressure 1: 124 Code: 8480-6 BMI: 34.1 Code: 92677-5 Heart Rate 1: 68 bpm Height: 5'6" Respiratory Rate: 20 bpm Temperature: 36 .8 (C) / 98.3 (F) Weight: 208 lbs 07/05/2015 Blood Pressure 1: 11478 Code: 8480-6 BMI: 33.9 Code: 02625-3 Heart Rate 1: 80 bpm Height: 5'6" Respiratory Rate: 20 bpm Temperature: 36 .6 (C) / 97.9 (F) Weight: 207 lbs 06/06/2015 Blood Pressure 1: 122/78 Code: 8480-6 BMI: 34.1 Code: 18866-4 Heart Rate 1: 76 bpm Height: 5'6" Respiratory Rate: 24 bpm SpO2: 96% Tempera ture: 36.4 (C) / 97.6 (F) Weight: 208 lbs 05/23/2015 Blood Pressure 1: 124/78 Code: 8480-6 Heart Rate 1: 76 bpm Respiratory Rate: 24 bpm SpO2: 93% Temperature: 36.8 (C) / 98.2 (F) We ight: 212 lbs 05/05/2015 Blood Pressure 1: 136/80 Code: 8480-6 BMI: 35.4 Code: 75925-4 Heart Rate 1: 76 bpm Height: 5'6" Respiratory Rate: 28 bpm Temperature: 37 .0 (C) / 98.6 (F) Weight: 216 lbs 03/30/2015 Blood Pressure 1: 132/86 Code: 8480-6 BMI: 35.2 Code: 29177-7 Heart Rate 1: 84 bpm Height: 5'6" Respiratory Rate: 24 bpm Temperature: 36 .7 (C) / 98.0 (F) Weight: 215 lbs 02/03/2015 Blood Pressure 1: 122/74 Code: 8480-6 BMI: 35.7 Code: 77049-9 Heart Rate 1: 84 bpm Height: 5'6" Respiratory Rate: 20 bpm Temperature: 36 .9 (C) / 98.5 (F) Weight: 218 lbs 12/29/2014 Blood Pressure 1: 132/80 Code: 8480-6 BMI: 35.1 Code: 89686-7 Heart Rate 1: 80 bpm Height: 5'6" Respiratory Rate: 20 bpm Temperature: 36 .6 (C) / 97.8 (F) Weight: 214 lbs 09/02/2014 Blood Pressure 1: 128/92 Code: 8480-6 BMI: 34.7 Code: 74962-4 Heart Rate 1: 84 bpm Height: 5'6" Respiratory Rate: 26 bpm Temperature: 36 .8 (C) / 98.2 (F) Weight: 212 lbs 08/25/2014 Blood Pressure 1: 124/80 Code: 8480-6 BMI: 34.7 Code: 61025-2 Heart Rate 1: 78 bpm Height: 5'6" Respiratory Rate: 22 bpm SpO2: 97% Tempera ture: 36.6 (C) / 97.8 (F) Weight: 212 lbs 04/01/2014 Blood Pressure 1: 142/84 Code: 8480-6 BMI: 34.4 Code: 15714-9 Heart Rate 1: 74 bpm Height: 5'5" Respiratory Rate: 20 bpm Temperature: 36 .4 (C) / 97.6 (F) Weight: 207 lbs 03/16/2014 Blood Pressure 1: 142/90 Code: 8480-6 BMI: 34.6 Code: 36355-8 Heart Rate 1: 76 bpm Height: 5'5" Respiratory Rate: 24 bpm Temperature: 36 .5 (C) / 97.7 (F) Weight: 208 lbs 03/09/2014 Blood Pressure 1: 116/70 Code: 8480-6 BMI: 35.3 Code: 71853-8 Heart Rate 1: 72 bpm Height: 5'5" [...] 1: 128/86 Code: 8480-6 BMI: 34.3 Code: 85518-7 Heart Rate 1: 84 bpm Height: 5'5" Respiratory Rate: 20 bpm Temperature: 36 .7 (C) / 98.0 (F) Weight: 206 lbs 12/23/2013 Blood Pressure 1: 122/70 Code: 8480-6 BMI: 34.3 Code: 65684-8 Heart Rate 1: 68 bpm Height: 5'5" Respiratory Rate: 20 bpm Temperature: 36 .8 (C) / 98.2 (F) Weight: 206 lbs 10/05/2013 Blood Pressure 1: 118/76 Code: 8480-6 BMI: 34.1 Code: 13526-3 Heart Rate 1: 68 bpm Height: 5'5" Respiratory Rate: 20 bpm SpO2: 98% Tempera ture: 36.6 (C) / 97.9 (F) Weight: 205 lbs 08/04/2013 Blood Pressure 1: 126/82 Code: 8480-6 BMI: 33.3 Code: 97014-2 Heart Rate 1: 76 bpm Height: 5'5" Respiratory Rate: 20 bpm Temperature: 36 .8 (C) / 98.2 (F) Weight: 200 lbs 07/03/2013 Blood Pressure 1: 124/82 Code: 8480-6 BMI: 33.3 Code: 40907-2 Heart Rate 1: 72 bpm Height: 5'5" Respiratory Rate: 22 bpm Temperature: 36 .1 (C) / 97.0 (F) Weight: 200 lbs 05/27/2013 Blood Pressure 1: 126/82 Code: 8480-6 Heart Rate 1: 74 bpm Respiratory Rate: 20 bpm Temperature: 36.0 (C) / 96.8 (F) Weight: 199 lbs 04/06/2013 Blood Pressure 1: 118/80 Code: 8480-6 BMI: 35.2 Code: 11557-0 Heart Rate 1: 80 bpm Height: 5'4" Respiratory Rate: 20 bpm Temperature: 37 .4 (C) / 99.3 (F) Weight: 205 lbs 11/10/2012 Blood Pressure 1: 128/82 Code: 8480-6 Heart Rate 1: 84 bpm Respiratory Rate: 20 bpm Temperature: 36.7 (C) / 98.0 (F) Weight: 199 lbs 09/02/2012 Blood Pressure 1: 116/82 Code: 8480-6 BMI: 34.2 Code: 86141-6 Heart Rate 1: 88 bpm Height: 5'4" Respiratory Rate: 22 bpm Temperature: 36 .6 (C) / 97.8 (F) Weight: 199 lbs 08/04/2012 Blood Pressure 1: 128/74 Code: 8480-6 BMI: 34.0 Code: 87911-8 Heart Rate 1: 92 bpm Height: 5'4" Respiratory Rate: 20 bpm Temperature: 36 .4 (C) / 97.5 (F) Weight: 198 lbs 07/21/2012 Blood Pressure 1: 124/86 Code: 8480-6 Heart Rate 1: 116 bpm Respiratory Rate: 24 bpm Temperature: 36.8 (C) / 98.2 (F) 07/02/2012 Blood Pressure 1: 116/88 Code: 8480-6 BMI: 33.6 Code: 38345-4 Heart Rate 1: 76 bpm Height: 5'4" Respiratory Rate: 20 bpm Temperature: 36 .8 (C) / 98.3 (F) Weight: 196 lbs 06/24/2012 Blood Pressure 1: 124/80 Code: 8480-6 BMI: 34.3 Code: 80030-6 Heart Rate 1: 72 bpm Height: 5'4" SpO2: 96% Temperature: 36.3 (C) / 97.3 (F) Weight: 200 lbs 05/20/2012 Blood Pressure 1: 116/88 Code: 8480-6 BMI: 33.8 Code: 87500-4 Heart Rate 1: 80 bpm Height: 5'4" Respiratory Rate: 22 bpm Temperature: 36 .9 (C) / 98.4 (F) Weight: 197 lbs 05/08/2012 Blood Pressure 1: 128/86 Code: 8480-6 BMI: 33.8 Code: 99665-5 Heart Rate 1: 76 bpm Height: 5'4" Respiratory Rate: 26 bpm SpO2: 95% Tempera ture: 36.1 (C) / 97.0 (F) Weight: 197 lbs 04/22/2012 Blood Pressure 1: 106/64 Code: 8480-6 BMI: 33.8 Code: 95903-2 Heart Rate 1: 70 bpm Height: 5'4" Temperature: 36.1 (C) / 97.0 (F) Weight: 197 lbs 02/13/2012 Blood Pressure 1: 126/82 Code: 8480-6 BMI: 34.7 Code: 74605-2 Heart Rate 1: 64 bpm Height: 5'4" Respiratory Rate: 20 bpm Temperature: 36 .6 (C) / 97.8 (F) Weight: 202 lbs 01/28/2012 Blood Pressure 1: 116/80 Code: 8480-6 BMI: 34.7 Code: 02126-3 Heart Rate 1: 76 bpm Height: 5'4" Respiratory Rate: 20 bpm Temperature: 36 .8 (C) / 98.3 (F) Weight: 202 lbs 12/26/2011 Blood Pressure 1: 132/82 Code: 8480-6 BMI: 36.0 Code: 13956-3 Heart Rate 1: 68 bpm Height: 5'4" Respiratory Rate: 22 bpm Temperature: 36 .7 (C) / 98.0 (F) Weight: 210 lbs 11/14/2011 Blood Pressure 1: 124/80 Code: 8480-6 BMI: 36.4 Code: 54910-0 Heart Rate 1: 76 bpm Height: 5'4" Respiratory Rate: 20 bpm Temperature: 36 .8 (C) / 98.2 (F) Weight: 212 lbs 09/12/2011 Blood Pressure 1: 108/74 Code: 8480-6 BMI: 37.1 Code: 62532-8 Heart Rate 1: 72 bpm Height: 5'4" Respiratory Rate: 20 bpm Temperature: 37 .0 (C) / 98.6 (F) Weight: 216 lbs 08/15/2011 Blood Pressure 1: 122/80 Code: 8480-6 BMI: 36.9 Code: 88787-2 Heart Rate 1: 76 bpm Height: 5'4" Respiratory Rate: 20 bpm Temperature: 36 .2 (C) / 97.1 (F) Weight: 215 lbs 08/09/2011 Blood Pressure 1: 112/78 Code: 8480-6 BMI: 36.9 Code: 17095-4 Heart Rate 1: 68 bpm Height: 5'4" Respiratory Rate: 20 bpm Temperature: 36 .7 (C) / 98.0 (F) Weight: 215 lbs 07/03/2011 Blood Pressure 1: 140/94 Code: 8480-6 BMI: 36.2 Code: 08089-8 Heart Rate 1: 68 bpm Height: 5'4" Temperature: 36.0 (C) / 96.8 (F) Weight: 211 lbs 06/04/2011 Blood Pressure 1: 124/70 Code: 8480-6 BMI: 36.7 Code: 22678-2 Heart Rate 1: 68 bpm Height: 5'4" Respiratory Rate: 20 bpm Temperature: 36 .6 (C) / 97.9 (F) Weight: 214 lbs 05/03/2011 Blood Pressure 1: 130/76 Code: 8480-6 BMI: 36.4 Code: 47150-5 Heart Rate 1: 74 bpm Height: 5'5" Temperature: 36.2 (C) / 97.2 (F) Weight: 219 lbs 04/05/2011 Blood Pressure 1: 124/86 Code: 8480-6 BMI: 35.9 Code: 42655-9 Heart Rate 1: 76 bpm Height: 5'6" Respiratory Rate: 22 bpm Temperature: 36 .3 (C) / 97.3 (F) Weight: 219 lbs 03/08/2011 Blood Pressure 1: 112/78 Code: 8480-6 BMI: 35.1 Code: 41224-0 Heart Rate 1: 80 bpm Height: 5'6" Respiratory Rate: 26 bpm Temperature: 36 .9 (C) / 98.4 (F) Weight: 214 lbs 01/24/2011 Blood Pressure 1: 110/82 Code: 8480-6 BMI: 35.6 Code: 38877-0 Heart Rate 1: 80 bpm Height: 5'6" Temperature: 36.1 (C) / 97.0 (F) Weight: 217 lbs 01/02/2011 Blood Pressure 1: 106/72 Code: 8480-6 BMI: 35.6 Code: 89983-0 Heart Rate 1: 76 bpm Height: 5'6" [...] 1: 120/74 Code: 8480-6 BMI: 35.9 Code: 43690-0 Heart Rate 1: 72 bpm Height: 5'5" Temperature: 36.3 (C) / 97.4 (F) Weight: 216 lbs 09/19/2010 Blood Pressure 1: 124/80 Code: 8480-6 BMI: 35.4 Code: 28153-9 Heart Rate 1: 76 bpm Height: 5'5" [...] 1: 122/78 Code: 8480-6 BMI: 37.4 Code: 61785-1 Heart Rate 1: 84 bpm Height: 5'5" [...] up 10/30/2017 follow up 10/23/2017 Hospital [facility] Annual Checkup 09/17/2017 Wellness Physical fo [...] follow up 10/26/2015 ER visit from at [facility] for COPD Exacerbation follow up 10/05/2015 ER Visit gait abnormality 09/15/2015 Patient requesting kelly pineda paperwork to be filled out disturbances of thinking 08/24/2015 follow up 07/05/2015 4wk fwup follow up 06/06/2015 Hospital [facility] cough 05/23/2015 follow up 05/05/2015 dyspnea 03/30/2015 [facility] needs new orde r for O2 abdominal pain 02/03/2015 cyst 12/29/2014 vs abscess follow up 09/02/2014 Hospital [facility] headache 08/25/2014 facial drooping follow up 04/01/2014 ER follow up 03/16/2014 1wk fwup follow up 03/09/2014 1mo fwup and bronchi tis fwup follow up 03/03/2014 2 day follow up 03/01/2014 ER follow up 02/09/2014 [facility] gastroesophageal reflux 12/23/2013 painful urination 10/30/2013 UTI [...] up 08/04/2012 2wk fwup follow up 07/21/2012 [facility]--[facility] an sore throat 07/02/2012 headache 06/25/2012 request [...] up 10/18/[address] Medrano last w [facility], having increased allergy symptoms. Would like steroid [...] 1 month f/u follow up 12/07/[address] [facility], done with PT--finished about 2wks [...] Hypoxia[ICD10: R09.02] Diagnosis: Migraine[ICD10: G43.909] Belia MARTINEZ [facility] CPT-4: 14000 08/25/2019 ([id number]) OFFICE/OUTPATIENT VISIT EST Diagnosis: Yawning[ICD10: R06.89] Diagnosis: LION (obstructive sleep apnea)[ICD10: G47.33] Pattie REID DO [facility] CPT-4: 32210 08/10/2019 ([id number]) OFFICE/OUTPATIENT VISIT EST Diagnosis: Pelvic pain in female[ICD10: R10.2] Diagnosis: Left leg swelling[ICD10: M79.89] Diagnosis: Dyspnea[ICD10: R06.00] Diagnosis: Constipation[ICD10: K59.00] Pattie WICK [facility] CPT-4: 43570 08/04/2019 ([id number]) OFFICE/OUTPATIENT VISIT EST Diagnosis: Inspiratory stridor[ICD10: R06.1] Diagnosis: Diarrhea[ICD10: R19.7] [facility]21 3 07/06/2019 ([id number]) OFFICE/OUTPATIENT VISIT EST Diagnosis: Left leg swelling[ICD10: M79.89] Diagnosis: Dyspnea[ICD10: R06.00] [facility] 9921 3 06/24/2019 ([id number]) OFFICE/OUTPATIENT VISIT EST Diagnosis: Acute bronchitis[ICD10: J20.9] Diagnosis: Colitis[ICD10: K52.9] [facility] 62004 06/16/2019 ([id number]) OFFICE/OUTPATIENT VISIT EST Diagnosis: Diarrhea[ICD10: R19.7] Diagnosis: Abdominal bloating[ICD10: R14.0] Belia Reid [facility] CPT- 4: 52563 06/08/2019 ([id number]) OFFICE/OUTPATIENT VISIT EST Diagnosis: Acute febrile illness[ICD10: R50.9] Diagnosis: Colitis[ICD10: K52.9] Belia Reid [facility] CPT-4: 99626 05/26/2019 ([id number]) OFFICE/OUTPATIENT VISIT EST Diagnosis: Chronic obstructive pulmonary disease, unspecified[ICD10: J44.9] Diagnosis: Pulmonary fibrosis[ICD10: J84.10] Diagnosis: Intermittent stridor[ICD10: R06.1] Diagnosis: Muscle weakness[ICD10: M62.81] Belia HSUQUELINE Bushra Mayda ZACHARYNDOTONIEL [facility] CPT-4: 61997 05/13/2019 ([id number]) OFFICE/OUTPATIENT VISIT EST Diagnosis: Stridor[ICD10: R06.1] Diagnosis: COUGH[ICD10: R05] Beliahanna BRUNSON BushraMayda LUISER [facility] CPT-4: 96648 05/06/2019 ([id number]) OFFICE/OUTPATIENT VISIT EST Diagnosis: Stridor[ICD10: R06.1] Diagnosis: Muscle, jerky movements (uncontrolled)[ICD10: G25.5] Belia Zacharynilson BRUNSON BushraMayda LUISER [facility] CPT-4: 61383 04/29/2019 ([id number]) OFFICE/OUTPATIENT VISIT EST Diagnosis: Upper respiratory infection[ICD10: J06.9] Diagnosis: Flank pain[ICD10: R10.9] Diagnosis: Weight gain[ICD10: R63.5] Pattie Floresjuan BRUNSON BushraMayda ZACHARY NDESudhir [facility] CPT-4: 22656 04/16/2019 ([id number]) OFFICE/OUTPATIENT VISIT EST Diagnosis: Generalized pruritus[ICD10: L29.9] Belia SALAZAR SMayda ZACHARYNDER [facility] CPT-4: 77035 04/08/2019 ([id number]) OFFICE/OUTPATIENT VISIT EST Diagnosis: Acute bursitis of left shoulder[ICD10: M75.52] Diagnosis: Cervicalgia[ICD10: M54.2] Diagnosis: Chest wall pain[ICD10: R07.89] Belia BURNSON Bushra Mayda ANUSHKA [facility] CPT-4: 22849 01/22/2019 ([id number]) OFFICE/OUTPATIENT VISIT EST Diagnosis: Abdominal pain[ICD10: R10.9] Diagnosis: Pyelonephritis[ICD10: N12] Pattie Nortonarely Shi R[facility] ALBERTO [facility] CPT-4: 68523 01/07/2019 ([id number]) OFFICE/OUTPATIENT VISIT EST Diagnosis: Low back pain[ICD10: M54.5] Diagnosis: Left lumbar radiculopathy[ICD10: M54.16] Diagnosis: Left flank pain[ICD10: R10.9] Diagnosis: Left lower quadrant pain[ICD10: R10.32] Diagnosis: FLU VACCINE[ICD10: Z23] Belia FREDERICK [facility] CPT-4: 28472 12/24/2018 ([id number]) OFFICE/OUTPATIENT VISIT EST Diagnosis: Migraine, unspecified, not intractable, without status migrainosus[ICD10: G43.909] Diagnosis: Fibromyalgia[ICD10: M79.7] Belia DOMINGUEZ [facility] CPT-4: 87822 11/20/2018 ([id number]) OFFICE/OUTPATIENT VISIT EST Diagnosis: Migraine, unspecified, intractable, without status migrainosus[ICD10: G43.919] Diagnosis: Acute sinusitis, unspecified[ICD10: J01.90] Pattie REID DO [facility] CPT-4: 86068 11/04/2018 ([id number]) OFFICE/OUTPATIENT VISIT EST Diagnosis: Pain in left wrist[ICD10: M25.532] Diagnosis: Other dorsalgia[ICD10: M54.89] Pattie REID DO [facility] CPT-4: 35612 09/08/2018 ([id number]) OFFICE/OUTPATIENT VISIT EST Diagnosis: Acute stress reaction[ICD10: F43.0] Diagnosis: Pruritus, unspecified[ICD10: L29.9] 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, 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] Belia REID [facility] CPT-4: 35336 08/20/2018 ([id number]) OFFICE/OUTPATIENT VISIT EST Diagnosis: Hypotension due to drugs[ICD10: I95.2] Diagnosis: Paroxysmal atrial fibrillation[ICD10: I48.0] Diagnosis: Localized edema[ICD10: R60.0] Belia REID [facility] CPT-4: 87961 06/19/2018 ([id number]) OFFICE/OUTPATIENT VISIT EST Diagnosis: Generalized hyperhidrosis[ICD10: R61] Diagnosis: Essential (primary) hypertension[ICD10: I10] Diagnosis: Supraventricular tachycardia[ICD10: I47.1] Belia REID DO [facility] CPT-4: 32498 06/09/2018 ([id number]) OFFICE/OUTPATIENT VISIT EST Diagnosis: Stridor[ICD10: R06.1] Diagnosis: Dependence on supplemental oxygen[ICD10: Z99.81] Diagnosis: Weakness[ICD10: R53.1] Diagnosis: Supraventricular tachycardia[ICD10: I47.1] Belia REID [facility] SYSTEM CPT-4: 43261 05/21/2018 ([id number]) OFFICE/OUTPATIENT VISIT EST Diagnosis: Cervical disc disorder with radiculopathy, unspecified cervical region[ICD10: M50.10] Belia REID [facility] CPT-4: 98311 04/16/2018 ([id number]) OFFICE/OUTPATIENT VISIT EST Diagnosis: Migraine, unspecified, intractable, without status migrainosus[ICD10: G43.919] Diagnosis: Fibromyalgia[ICD10: M79.7] Pattie DOMINGUEZ [facility] CPT-4: 96043 04/01/2018 ([id number]) NURSE/OUTPATIENT VISIT EST Diagnosis: Hematuria, unspecified[ICD10: R31.9] Diagnosis: Dysuria[ICD10: R30.0] Belia REID [facility] CPT-4: 73586 03/17/2018 ([id number]) OFFICE/OUTPATIENT VISIT EST Diagnosis: Erythema intertrigo[ICD10: L30.4] Diagnosis: Chronic obstructive pulmonary disease with (acute) exacerbation[ICD10: J44.1] Diagnosis: Type 2 diabetes mellitus with hyperglycemia[ICD10: E11.65] Belia REID DO [facility] CPT-4: 87208 03/06/2018 ([id number]) OFFICE/OUTPATIENT VISIT EST Diagnosis: Cervicalgia[ICD10: M54.2] Pattiekedar AMBRIZ [facility] CPT-4: 31196 02/05/2018 ([id number]) OFFICE/OUTPATIENT VISIT EST Diagnosis: Candidiasis of skin and nail[ICD10: B37.2] Diagnosis: Cervicalgia[ICD10: M54.2] Pattie AMBRIZ [facility] CPT-4: 21274 01/20/2018 ([id number]) OFFICE/OUTPATIENT VISIT EST Diagnosis: Pain in thoracic spine[ICD10: M54.6] Diagnosis: Radiculopathy, thoracic region[ICD10: M54.14] Belia REID [facility] CPT-4: 83309 12/25/2017 ([id number]) OFFICE/OUTPATIENT VISIT EST Diagnosis: Pain in thoracic spine[ICD10: M54.6] Diagnosis: Other muscle spasm[ICD10: M62.838] Diagnosis: FLU VACCINE[ICD10: Z23] Diagnosis: PNEUMOCOCCAL VACCINE[ICD10: Z23] Belia REID [facility] CPT-4: 95002 12/17/2017 ([id number]) OFFICE/OUTPATIENT VISIT EST Diagnosis: Chronic obstructive pulmonary disease with (acute) exacerbation[ICD10: J44.1] Belia REID [facility] CPT- 4: 83872 10/30/2017 ([id number]) OFFICE/OUTPATIENT VISIT EST Diagnosis: Chronic obstructive pulmonary disease with acute lower respiratory infection[ICD10: J44.0] Diagnosis: Mild intermittent asthma with (acute) exacerbation[ICD10: J45.21] Belia REID [facility] CPT-4: 31613 10/23/2017 ([id number]) NURSE/OUTPATIENT VISIT EST Diagnosis: Migraine, unspecified, not intractable, without status migrainosus[ICD10: G43.909] Belia REID [facility] CPT - 4: 90079 08/26/2017 ([id number]) OFFICE/OUTPATIENT VISIT EST Diagnosis: Urinary tract infection, site not specified[ICD10: N39.0] Diagnosis: Encounter for screening for osteoporosis[ICD10: Z13.820] Diagnosis: Encounter for screening mammogram for malignant neoplasm of breast[ICD10: Z12.31] Diagnosis: Acute bronchitis, unspecified[ICD10: J20.9] Pattie REID DO [facility] CPT-4: 64633 07/19/2017 ([id number]) OFFICE/OUTPATIENT VISIT EST Diagnosis: Rash and other nonspecific skin eruption[ICD10: R21] Pattie REID DO [facility] CPT-4: 86238 05/29/2017 ([id number]) OFFICE/OUTPATIENT VISIT EST Diagnosis: Diarrhea, unspecified[ICD10: R19.7] Diagnosis: Tinea corporis[ICD10: B35.4] Diagnosis: Tinea cruris[ICD10: B35.6] Diagnosis: Migraine, unspecified, not intractable, without status migrainosus[ICD10: G43.909] Belia REID DO [facility] CPT - 4: 00304 05/07/2017 ([id number]) OFFICE/OUTPATIENT VISIT EST Diagnosis: Stridor[ICD10: R06.1] Diagnosis: Chronic obstructive pulmonary disease with (acute) exacerbation[ICD10: J44.1] Belia REID DO [facility] CPT- 4: 16416 03/18/2017 ([id number]) OFFICE/OUTPATIENT VISIT EST Diagnosis: Type 2 diabetes mellitus with hyperglycemia[ICD10: E11.65] Belia REID DO [facility] CPT-4: 02764 02/27/2017 OFFICE/OUTPATIENT VISIT EST Diagnosis: Type 2 diabetes mellitus with hyperglycemia[ICD10: E11.65] Pattie REID DO [facility] CPT-4: 24121 02/22/2017 ([id number]) OFFICE/OUTPATIENT VISIT EST Diagnosis: Urinary tract infection, site not specified[ICD10: N39.0] Diagnosis: Pneumonia, unspecified organism[ICD10: J18.9] Diagnosis: Type 2 diabetes mellitus with hyperglycemia[ICD10: E11.65] Belia REID DO [facility] CPT-4: 85849 01/23/2017 ([id number]) OFFICE/OUTPATIENT VISIT EST Diagnosis: Type 2 diabetes mellitus with hyperglycemia[ICD10: E11.65] Diagnosis: Localized edema[ICD10: R60.0] Diagnosis: PNEUMOCOCCAL VACCINE[ICD10: Z23] Diagnosis: FLU VACCINE[ICD10: Z23] Belia FREDERICK DO [facility] CPT-4: 43057 12/20/2016 OFFICE/OUTPATIENT VISIT EST Diagnosis: Pain in thoracic spine[ICD10: M54.6] Diagnosis: Low back pain[ICD10: M54.5] Diagnosis: Cervicalgia[ICD10: M54.2] Diagnosis: Cough[ICD10: R05] Celeste Hanna BELIA REID [facility] CPT-4: 97036 10/08/2016 ([id number]) OFFICE/OUTPATIENT VISIT EST Diagnosis: Primary insomnia[ICD10: F51.01] Diagnosis: Migraine, unspecified, not intractable, without status migrainosus[ICD10: G43.909] Diagnosis: Type 2 diabetes mellitus with hyperglycemia[ICD10: E11.65] Belia REID [facility] CPT-4: 10718 09/19/2016 ([id number]) OFFICE/OUTPATIENT VISIT EST Diagnosis: Migraine, unspecified, not intractable, without status migrainosus[ICD10: G43.909] Diagnosis: Generalized abdominal pain[ICD10: R10.84] Diagnosis: Cough[ICD10: R05] Belia REID [facility] CPT-4: 12405 08/20/2016 ([id number]) OFFICE/OUTPATIENT VISIT EST Diagnosis: Chronic obstructive pulmonary disease, unspecified[ICD10: J44.9] Diagnosis: Stridor[ICD10: R06.1] Belia REID [facility] CPT-4: 22112 06/19/2016 ([id number]) OFFICE/OUTPATIENT VISIT EST Diagnosis: Chronic obstructive pulmonary disease, unspecified[ICD10: J44.9] Diagnosis: Personal history of urinary (tract) infections[ICD10: Z87.440] Belia REID [facility] CPT-4: 93692 06/04/2016 ([id number]) OFFICE/OUTPATIENT VISIT EST Diagnosis: Stridor[ICD10: R06.1] Diagnosis: Chronic obstructive pulmonary disease with acute lower respiratory infection[ICD10: J44.0] Diagnosis: Other specified diseases of intestine[ICD10: K63.89] Diagnosis: Cystitis, unspecified without hematuria[ICD10: N30.90] Belia REID DO [facility] CPT-4: 69276 05/02/2016 ([id number]) OFFICE/OUTPATIENT VISIT EST Diagnosis: Fibromyalgia[ICD10: M79.7] Diagnosis: Urinary tract infection, site not specified[ICD10: N39.0] Belia REID DO [facility] CPT-4: 84138 04/03/2016 ([id number]) OFFICE/OUTPATIENT VISIT EST Diagnosis: Unspecified asthma, uncomplicated[ICD10: J45.909] Diagnosis: Cough[ICD10: R05] Lidia REID [facility] T-4: 48498 02/29/2016 ([id number]) OFFICE/OUTPATIENT VISIT EST Diagnosis: Migraine, unspecified, intractable, without status migrainosus[ICD10: G43.919] Diagnosis: Urinary tract infection, site not specified[ICD10: N39.0] Belia REID [facility] CPT-4: 52295 02/02/2016 ([id number]) OFFICE/OUTPATIENT VISIT EST Diagnosis: Urinary tract infection, site not specified[ICD10: N39.0] Diagnosis: Unspecified abdominal pain[ICD10: R10.9] Diagnosis: Pain in thoracic spine[ICD10: M54.6] Diagnosis: Type 2 diabetes mellitus with diabetic neuropathic arthropathy[ICD10: E11.610] Belia REID [facility] CPT-4: 72755 12/05/2015 ([id number]) OFFICE/OUTPATIENT VISIT EST Diagnosis: Chronic obstructive pulmonary disease with (acute) exacerbation[ICD10: J44.1] Diagnosis: Migraine, unspecified, not intractable, without status migrainosus[ICD10: G43.909] Lidia REID [facility] CPT -4: 63247 10/26/2015 ([id number]) OFFICE/OUTPATIENT VISIT EST Diagnosis: Hematuria, unspecified[ICD10: R31.9] Diagnosis: Urinary tract infection, site not specified[ICD10: N39.0] Lidia HSUQUELINE BushraMayda ANUSHKA [facility] CPT-4: 39490 10/05/2015 OFFICE/OUTPATIENT VISIT EST Diagnosis: Chronic obstructive pulmonary disease, unspecified[ICD10: J44.9] Diagnosis: Muscle weakness (generalized)[ICD10: M62.81] Diagnosis: Polyneuropathy, unspecified[ICD10: G62.9] Diagnosis: Other intervertebral disc degeneration, 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] Diagnosis: Fibromyalgia[ICD10: M79.7] Belia Anushka BELIA Yuridia ODMINGUEZ [facility] CPT-4: 27318 09/15/2015 ([id number]) OFFICE/OUTPATIENT VISIT EST Diagnosis: Disorientation, unspecified[ICD10: R41.0] Diagnosis: Headache[ICD10: R51] Diagnosis: Paresthesia of skin[ICD10: R20.2] Lidianick Hwang KOFFI Paredes BushraMayda ANUSHKA [facility] CPT-4: 86464 08/24/2015 ([id number]) OFFICE/OUTPATIENT VISIT EST Diagnosis: Type 2 diabetes mellitus with hyperglycemia[ICD10: E11.65] Diagnosis: Chronic obstructive pulmonary disease with acute lower respiratory infection[ICD10: J44.0] Belia Zacharybcekyotoniel CORNELLBELIA BushraMayda ANUSHKA [facility] CPT-4: 08263 07/05/2015 ([id number]) OFFICE/OUTPATIENT VISIT EST Diagnosis: Mild intermittent asthma with (acute) exacerbation[ICD10: J45.21] Diagnosis: Chronic obstructive pulmonary disease, unspecified[ICD10: J44.9] Belia Zacharybeckyotoniel BELIA BushraMayda ANUSHKA [facility] CPT-4: 93903 06/06/2015 ([id number]) OFFICE/OUTPATIENT VISIT EST Diagnosis: Chronic obstructive pulmonary disease with (acute) exacerbation[ICD10: J44.1] Lidia Ajiden BELIA BushraMayda ANUSHKA [facility] CPT- 4: 30236 05/23/2015 ([id number]) OFFICE/OUTPATIENT VISIT EST Diagnosis: Type 2 diabetes mellitus with hyperglycemia[ICD10: E11.65] Diagnosis: Functional dyspepsia[ICD10: K30] Belia BRUNSON [facility] CPT-4: 04489 05/05/2015 ([id number]) OFFICE/OUTPATIENT VISIT EST Diagnosis: Type 2 diabetes mellitus with hyperglycemia[ICD10: E11.65] Diagnosis: Glycosuria[ICD10: R81] Diagnosis: Urinary tract infection, site not specified[ICD10: N39.0] [facility]: 38289 03/30/2015 ([id number]) OFFICE/OUTPATIENT VISIT EST Diagnosis: Generalized abdominal pain[ICD10: R10.84] Diagnosis: Diarrhea, unspecified[ICD10: R19.7] Diagnosis: Urinary tract infection, site not specified[ICD10: N39.0] Diagnosis: Gastro-esophageal reflux disease without esophagitis[ICD10: K21.9] [facility]: 32563 02/03/2015 ([id number]) OFFICE/OUTPATIENT VISIT EST Diagnosis: Other specified noninflammatory disorders of vagina[ICD10: N89.8] Diagnosis: Follicular disorder, unspecified[ICD10: L73.9] Diagnosis: Functional dyspepsia[ICD10: K30] Diagnosis: FLU VACCINE[ICD10: Z23] Belia Shi [facility] CPT-4: 39771 12/29/2014 ([id number]) OFFICE/OUTPATIENT VISIT EST 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 CPT-4: 92475 09/02/2014 ([id number]) OFFICE/OUTPATIENT VISIT EST Diagnosis: Cervical radiculopathy[ICD9: 723.4] Diagnosis: Cervicalgia[ICD9: 723.1] Diagnosis: Degenerative disc disease, cervical[ICD9: 722.4] 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I[ICD9: 250.00] [facility] CPT-4: 04217 04/01/2014 OFFICE/OUTPATIENT VISIT EST Diagnosis: Reactive airway disease[ICD9: 493.90] Belia REID DO [facility] CPT-4: 17377 03/16/2014 ([id number]) OFFICE/OUTPATIENT VISIT EST Diagnosis: BRONCHITIS, ACUTE[ICD9: 466.0] Diagnosis: Reactive airway disease[ICD9: 493.90] Belia REID DO [facility] CPT-4: 66977 03/09/2014 OFFICE/OUTPATIENT VISIT EST Diagnosis: BRONCHITIS, ACUTE[ICD9: 466.0] Diagnosis: WHEEZING[ICD9: 786.07] Huong Peguero [facility] CPT-4: 70467 03/03/2014 OFFICE/OUTPATIENT VISIT EST Diagnosis: BRONCHITIS, ACUTE[ICD9: 466.0] Diagnosis: WHEEZING[ICD9: 786.07] Huong Peguero [facility] CPT-4: 62673 03/01/2014 ([id number]) OFFICE/OUTPATIENT VISIT EST Diagnosis: GERD[ICD9: 530.81] Diagnosis: ARTHRALGIA-MULTIPLE SITES[ICD9: 719.49] Diagnosis: LUMB/LUMBOSAC DISC DEGEN[ICD9: 722.52] Diagnosis: - I - FIBROMYALGIA[ICD9: 729.1] Belia CORNELLLINE Yuridia REID [facility] CPT-4: 53408 02/09/2014 ([id number]) OFFICE/OUTPATIENT VISIT EST Diagnosis: Peptic ulcer disease[ICD9: 533.90] Diagnosis: RESTLESS LEGS SYNDROME[ICD9: 333.94] Diagnosis: Neuropathy[ICD9: 355.9] Belia CORNELLLINE Yuridia FREDERICK [facility] CPT-4: 31653 12/23/2013 ([id number]) OFFICE/OUTPATIENT VISIT EST Diagnosis: URINARY TRACT INFECTION[ICD9: 599.0] Belia Zacharynilson HSUQUE CLAYTON BushraMayda ANUSHKA [facility] CPT-4: 97874 10/30/2013 ([id number]) OFFICE/OUTPATIENT VISIT EST Diagnosis: Flank pain[ICD9: 789.00] Belia BRUNSON BushraMayda KIESHA VIRGILIO [facility] CPT-4: 07236 10/21/2013 ([id number]) OFFICE/OUTPATIENT VISIT EST Diagnosis: INFLAMED SEBORR KERATOS[ICD9: 702.11] Diagnosis: Brachioradial pruritus[ICD9: 698.9] Diagnosis: ASTHMA NOS[ICD9: 493.90] Belia BRUNSON BushraMayda KIESHA [facility] CPT-4: 83434 10/05/2013 ([id number]) OFFICE/OUTPATIENT VISIT EST Diagnosis: HYPERTENSION[ICD9: 401.9] Diagnosis: - I - FIBROMYALGIA[ICD9: 729.1] Diagnosis: DIZZINESS/VERTIGO[ICD9: 780.4] Diagnosis: MIGRAINE NOS/NOT INTRCBL[ICD9: 346.90] Diagnosis: Diabetic peripheral neuropathy[ICD9: 250.60] Diagnosis: Flank pain[ICD9: 789.00] Belia Shi KIESHA [facility] CPT-4: 70378 08/04/2013 ([id number]) OFFICE/OUTPATIENT VISIT EST Diagnosis: ALLERGIC RHINITIS[ICD9: 477.9] Belia [facility]ara [facility]: 31171 07/13/2013 OFFICE/OUTPATIENT VISIT EST Diagnosis: URINARY TRACT INFECTION[ICD9: 599.0] [facility]: 42048 07/03/2013 OFFICE/OUTPATIENT VISIT EST Diagnosis: HYPERTENSION[ICD9: 401.9] Diagnosis: URINARY TRACT INFECTION[ICD9: 599.0] Diagnosis: BACKACHE[ICD9: 724.5] Diagnosis: URINARY INCONTINENCE[ICD9: 788.30] Huong [facility]: 57856 05/27/2013 ([id number]) OFFICE/OUTPATIENT VISIT EST Diagnosis: Flank pain[ICD9: 789.00] Belia Shi KIESHA [facility] CPT-4: 83221 05/25/2013 ([id number]) OFFICE/OUTPATIENT VISIT EST Diagnosis: B-COMPLEX DEFIC NEC[ICD9: 266.2] [facility]: 30871 05/04/2013 ([id number]) OFFICE/OUTPATIENT VISIT EST Diagnosis: ALLERGIC RHINITIS[ICD9: 477.9] Diagnosis: Vitamin B12 deficiency[ICD9: 266.2] Belia Humphriesbeckyotoniel HSUROBERTOFelicita DONNA Yuridia REID [facility] CPT-4: 74309 04/17/2013 ([id number]) OFFICE/OUTPATIENT VISIT EST 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I[ICD9: 250.00] Diagnosis: URINARY TRACT INFECTION[ICD9: 599.0] Diagnosis: DIZZINESS/VERTIGO[ICD9: 780.4] Diagnosis: DIARRHEA[ICD9: 787.91] Belia Humphriesnilson BRUNSON BushraMayda RALF Peguero [facility] CPT-4: 24368 04/06/2013 ([id number]) OFFICE/OUTPATIENT VISIT EST Diagnosis: URINARY TRACT INFECTION[ICD9: 599.0] Diagnosis: URINARY RETENTION[ICD9: 788.20] Belia Zacharybeckyotoniel HSUBELIA BushraMayda ANUSHKA [facility] CPT-4: 49824 11/10/2012 ([id number]) OFFICE/OUTPATIENT VISIT EST Diagnosis: TACHYCARDIA[ICD9: 785.0] Diagnosis: SYNCOPE AND COLLAPSE[ICD9: 780.2] Diagnosis: CONSCIOUSNS ALTERAT NEC[ICD9: 780.09] Belia HSUPAUL LUBNA BushraMayda ANUSHKA [facility] CPT-4: 78337 09/02/2012 OFFICE/OUTPATIENT VISIT EST Diagnosis: TACHYCARDIA[ICD9: 785.0] Diagnosis: SYNCOPE AND COLLAPSE[ICD9: 780.2] Belia Zacharynilson Paredes BushraMayda ANUSHKA [facility] CPT-4: 36646 08/04/2012 ([id number]) OFFICE/OUTPATIENT VISIT EST Diagnosis: Loss of consciousness[ICD9: 780.09] Diagnosis: Tachycardia[ICD9: 785.0] Diagnosis: MALAISE AND FATIGUE[ICD9: 780.79] Belia Zacharynilson Paredes BushraMayda ANUSHKA [facility] CPT-4: 48124 07/21/2012 ([id number]) OFFICE/OUTPATIENT VISIT EST Diagnosis: BRONCHITIS, ACUTE[ICD9: 466.0] Diagnosis: ASTHMA NOS[ICD9: 493.90] Belia BRUNSON BushraMayda KIESHARegino POOLE [facility] CPT-4: 35892 07/02/2012 ([id number]) OFFICE/OUTPATIENT VISIT EST Diagnosis: CEPHALGIA[ICD9: 784.0] Belia CORNELLLINE BushraMayda RALF Peguero [employer] CPT-4: 95752 06/25/2012 ([id number]) OFFICE/OUTPATIENT VISIT EST Diagnosis: GERD[ICD9: 530.81] Diagnosis: DIARRHEA[ICD9: 787.91] Diagnosis: URINARY TRACT INFECTION[ICD9: 599.0] Diagnosis: ASTHMA NOS[ICD9: 493.90] Diagnosis: ALLERGIC RHINITIS[ICD9: 477.9] Belia CORNELLLINE Bushra Mayda ANUSHKA [facility] CPT-4: 04760 06/24/2012 ([id number]) OFFICE/OUTPATIENT VISIT EST Diagnosis: MIGRAINE NOS/NOT INTRCBL[ICD9: 346.90] Diagnosis: TREMOR NEC[ICD9: 333.1] Diagnosis: CHRONIC PAIN SYNDROME[ICD9: 338.4] Belia BASS MARIE BushraMayda ANUSHKA [facility] CPT-4: 53197 05/20/2012 ([id number]) OFFICE/OUTPATIENT VISIT EST Diagnosis: DIZZINESS/VERTIGO[ICD9: 780.4] Diagnosis: PALPITATIONS[ICD9: 785.1] Diagnosis: TREMOR NEC[ICD9: 333.1] Diagnosis: ANXIETY STATE NOS[ICD9: 300.00] Diagnosis: POSTTRAUMATIC STRESS DISORDER[ICD9: 309.81] Belia CORNELLLINE BushraMayda ANUSHKA [employer] CPT-4: 41951 05/08/2012 ([id number]) OFFICE/OUTPATIENT VISIT EST Diagnosis: MIGRAINE NOS/NOT INTRCBL[ICD9: 346.90] Diagnosis: FIBROMYALGIA[ICD9: 729.1] Diagnosis: SYNCOPE AND COLLAPSE[ICD9: 780.2] Diagnosis: Diabetic peripheral neuropathy[ICD9: 250.60] Belia CORNELLLINE BushraMayda ANUSHKA [facility] CPT-4: 68632 04/22/2012 OFFICE/OUTPATIENT VISIT EST Diagnosis: ROTATOR CUFF DIS NEC[ICD9: 726.19] Diagnosis: JOINT PAIN-SHLDER[ICD9: 719.41] Diagnosis: DYSPEPSIA[ICD9: 536.8] Belia Zacharynilson BELIA BushraMayda RALF [facility] [employer] CPT-4: 80467 02/13/2012 ([id number]) OFFICE/OUTPATIENT VISIT EST Diagnosis: MIGRAINE NOS/NOT INTRCBL[ICD9: 346.90] Diagnosis: GERD[ICD9: 530.81] Diagnosis: DYSPEPSIA[ICD9: 536.8] Belia Peguero [facility] CPT-4: 21798 01/28/2012 OFFICE/OUTPATIENT VISIT EST Diagnosis: CEPHALGIA[ICD9: 784.0] Diagnosis: MIGRAINE NOS/NOT INTRCBL[ICD9: 346.90] Diagnosis: GERD[ICD9: 530.81] Diagnosis: INSOMNIA NOS[ICD9: 780.52] Belia HSUQUELINE Yuridia DOMINGUEZ [facility] CPT-4: 01331 12/26/2011 ([id number]) OFFICE/OUTPATIENT VISIT EST Diagnosis: CEPHALGIA[ICD9: 784.0] Diagnosis: MIGRAINE NOS/NOT INTRCBL[ICD9: 346.90] Diagnosis: MALAISE AND FATIGUE[ICD9: 780.79] Diagnosis: FIBROMYALGIA[ICD9: 729.1] Diagnosis: ALLERGIC RHINITIS[ICD9: 477.9] Belia CORNELLLINE Bushra Mayda ANUSHKA [facility] CPT-4: 47140 11/14/2011 ([id number]) OFFICE/OUTPATIENT VISIT EST Diagnosis: MALAISE AND FATIGUE[ICD9: 780.79] Diagnosis: MUSCLE WEAKNESS-GENERAL[ICD9: 728.87] Diagnosis: MIGRAINE NOS/NOT INTRCBL[ICD9: 346.90] Diagnosis: JOINT PAIN-SHLDER[ICD9: 719.41] Belia Zacharybeckyotoniel HSUBELIA BushraMayda ANUSHKA [facility] CPT-4: 02839 09/12/2011 ([id number]) OFFICE/OUTPATIENT VISIT EST Diagnosis: CONCUSSION[ICD9: 850.9] Diagnosis: Ataxia[ICD9: 781.3] Diagnosis: DIZZINESS/VERTIGO[ICD9: 780.4] Beliahanna CORNELLLINE Bushra Mayda ANUSHKA [facility] CPT-4: 03999 08/15/2011 ([id number]) OFFICE/OUTPATIENT VISIT EST Diagnosis: THROMBOPHLEBITIS[ICD9: 451.9] Diagnosis: Subacromial bursitis[ICD9: 726.19] Diagnosis: ALLERGIC RHINITIS[ICD9: 477.9] Diagnosis: Lipoma[ICD9: 214.9] Belia REID [facility] CPT-4: 73398 08/09/2011 ([id number]) OFFICE/OUTPATIENT VISIT EST Diagnosis: THROMBOPHLEBITIS[ICD9: 451.9] Diagnosis: Arm pain[ICD9: 729.5] Diagnosis: Clostridium difficile colitis[ICD9: 008.45] Diagnosis: URINARY TRACT INFECTION[ICD9: 599.0] [facility]: 79984 07/03/2011 ([id number]) OFFICE/OUTPATIENT VISIT EST Diagnosis: ARTHRALGIA-MULTIPLE SITES[ICD9: 719.49] Diagnosis: Muscle cramp[ICD9: 729.82] Diagnosis: INSOMNIA NOS[ICD9: 780.52] [facility]: 58334 06/04/2011 OFFICE/OUTPATIENT VISIT EST Diagnosis: Headache[ICD9: 784.0] Diagnosis: Allergic rhinitis[ICD9: 477.9] [facility] CPT-[facility]: 39012 05/03/2011 OFFICE/OUTPATIENT VISIT EST Diagnosis: LUMB/LUMBOSAC DISC DEGEN[ICD9: 722.52] Diagnosis: MIGRAINE NOS/NOT INTRCBL[ICD9: 346.90] Diagnosis: CHRONIC PAIN SYNDROME[ICD9: 338.4] Diagnosis: RESTLESS LEGS SYNDROME[ICD9: 333.94] [facility] CPT-[facility]: 75885 04/05/2011 OFFICE/OUTPATIENT VISIT EST Diagnosis: MIGRAINE NOS/NOT INTRCBL[ICD9: 346.90] Diagnosis: GERD[ICD9: 530.81] Bel[facility] CPT-[facility]: 78993 03/08/2011 OFFICE/OUTPATIENT VISIT EST Diagnosis: URINARY TRACT INFECTION[ICD9: 599.0] Diagnosis: Vertigo[ICD9: 780.4] Diagnosis: GERD[ICD9: 530.81] [facility] CPT-[facility]: 69916 01/24/2011 OFFICE/OUTPATIENT VISIT EST Diagnosis: Hypotension[ICD9: 458.9] Diagnosis: Syncopal episodes[ICD9: 780.2] Diagnosis: MIGRAINE NOS/NOT INTRCBL[ICD9: 346.90] Diagnosis: MALAISE AND FATIGUE[ICD9: 780.79] Belia Shi ZACHARYNDER DO [facility] CPT-4: 57702 01/02/2011 OFFICE/OUTPATIENT VISIT EST Diagnosis: Tinea cruris[ICD9: 110.3] Diagnosis: Intertrigo[ICD9: 695.89] Diagnosis: MIGRAINE NOS/NOT INTRCBL[ICD9: 346.90] Belia COKER SMayda ZACHARYNDER [facility] CPT-4: 98182 12/07/2010 OFFICE/OUTPATIENT VISIT EST Diagnosis: PALPITATIONS[ICD9: 785.1] Diagnosis: ANXIETY STATE NOS[ICD9: 300.00] Belia Shi ZACHARYNDER [facility] CPT-4: 67506 11/16/2010 OFFICE/OUTPATIENT VISIT EST Diagnosis: URINARY TRACT INFECTION[ICD9: 599.0] Diagnosis: MIGRAINE NOS/NOT INTRCBL[ICD9: 346.90] Iraida COKER SMayda ZACHARYNDER DO [facility] CPT-4: 43446 11/02/2010 OFFICE/OUTPATIENT VISIT EST Diagnosis: ALLERGIC RHINITIS[ICD9: 477.9] Diagnosis: ANXIETY STATE NOS[ICD9: 300.00] Belia Shi ZACHARYNDER DO [facility] CPT-4: 56690 10/18/2010 OFFICE/OUTPATIENT VISIT EST Belia HUMPHRIES NDER DO [facility] CPT- 4: 92314 09/19/2010 OFFICE/OUTPATIENT VISIT EST Belia HUMPHRIES NDER DO [facility] CPT- 4: 18445 09/06/2010 ([id number]) OFFICE/OUTPATIENT VISIT EST Belia COKER SMayda ORENDER DO [facility] CPT-4: 52179 08/10/2010 ([id number]) OFFICE/OUTPATIENT VISIT EST Belia COKER SMayda ORENDER [facility] CPT-4: 07075 05/11/2010 ([id number]) OFFICE/OUTPATIENT VISIT, [facility] CPT-4: 05047 04/06/2010 ([id number]) OFFICE/OUTPATIENT VISIT, [facility] CPT-4: 79954 02/09/2010 ([id number]) OFFICE/OUTPATIENT VISIT, [facility] CPT-4: 42959 01/05/2010 ([id number]) OFFICE/OUTPATIENT VISIT, EST Belia [facility] CPT-4: 13683 12/07/2009 ([id number]) OFFICE/OUTPATIENT VISIT, EST Belia [facility] CPT-4: 59017 11/08/2009 ([id number]) OFFICE/OUTPATIENT VISIT, EST Belia [facility] CPT-4: 57958 10/24/2009 ([id number]) OFFICE/OUTPATIENT VISIT, [facility] CPT-4: 02609 07/25/2009 ([id number]) OFFICE/OUTPATIENT VISIT, [facility] CPT-4: 57476 05/26/2009 Plan of Care Planned Activity Notes [...] R09.02 08/25/2019 Patient Education: meloxicam- [employer] Coupon [id number] https://www.[employer]/sampleDocalytics/resources/getResource/61/fm95k0p5-0vhi-4498-t5 Completed 08/25/2019 Patient Education: baclofen- [employer] Coupon [id number] https://www.[employer]/sampleDocalytics/resources/getResource/61/r11d548a-6i6j-86j9-ny Completed 08/25/2019 Visit Diagnosis Plan: Yawning Discussion: [...] new home sleep study on patient through [facility] to assess severity of symptoms, patient does wear her oxygen at night though. educated on importance of wearing oxygen at all times, even when in public. ICD-9 : 786.09 ICD-10 : R06.89 08/10/2019 Appointment: Pattie Sotomayor [address] [place] [address] ACUTE ILLNESS 08/10/2019 Visit Diagnosis Plan: Left [...] ICD-10 : R10.2 08/04/2019 Appointment: Pattie Sotomayor [address] [place] [address] ACUTE ILLNESS 08/04/2019 Visit Diagnosis Plan: Inspiratory stridor Discussion: Continue oxygen via NC at 2 L Continue ativan at QID Follow Up: 4 weeks ICD-9 : 786.1 ICD-10 : R06.1 07/06/2019 Visit Diagnosis Plan: Diarrhea Discussion: Restart Col estid at once daily ICD-9 : 787.91 ICD-10 : R19.7 07/06/2019 Appointment: Belia Reid WPtel: [facility] [address] TELEMEDICINE 07/06/2019 Visit Diagnosis Plan: Left [...] R06.00 06/24/2019 Appointment: Belia Reid WPtel: [id number] TELEMEDICINE 06/24/2019 Visit Diagnosis Plan: Colitis Discussion: Levaquin/Fla gyl [place] Diet ICD-9 : 558.9 ICD-10 : K52.9 06/16/2019 Visit Diagnosis Plan: Acute bronchitis Discussion: Cov er with levaquin Increase SVNs with albuterol to QID Has oxygen using q HS routinely and prn To ER if oxygen levels drop or worsening respiratory symptoms ICD-9 : 466.0 ICD-10 : J20.9 06/16/2019 Appointment: Belia Reid WPtel: [address] [place] [address] TELEMEDICINE 06/16/2019 Patient Education: Levaquin- OptimizeRX Coupon [phone] https://www.[employer]/WorldOne/resources/getResource/61/45i42jce-8bi6-68f3-00 Completed 06/16/2019 Visit Diagnosis Plan: Diarrhea Discussion: Vancomycin for 10 days and notify if not improving or worsening BLAND diet Hydrate ICD-9 : 787.91 ICD-10 : R19.7 06/08/2019 Appointment: Belia Reid WPtel: [address] [place] [address] TELEMEDICINE 06/08/2019 Visit Diagnosis Plan: Colitis Discussion: Flagyl plus cipro to cover for both colitis and UTI Notify or to ER if worsening ICD-9 : 558.9 ICD-10 : K52.9 05/26/2019 Visit Diagnosis Plan: Acute febrile illness Discussion : Notify if worsens ICD-9 : 780.60 ICD-10 : R50.9 05/26/2019 Appointment: Belia Reid WPtel: [address] [place] [address] TELEMEDICINE 05/26/2019 Appointment: Pattie Sotomayor [address] [place] [address] RESCHEDULED 05/18/2019 Visit Diagnosis Plan: Chronic obstructive pulmonary di sease, unspecified Discussion: Recommend pulmonary rehab Patient states she never went to pulmonary rehab due to cost as well as transportation issues Finish trelagy Stop singulair Decrease hydroxyzine to 25mg po q HS Fwup [address] scan of Chest results discussed ICD-9 : 496 ICD-10 : J44.9 05/13/2019 Appointment: Belia Reid WPtel: [address] [place], [place] [id number] Hospital Follow Up 05/13/2019 Visit Diagnosis Plan: COUGH Discussion: Check CT scan of chest ICD-9 : 786.2 ICD-10 : R05 05/06/2019 Visit Diagnosis Plan: Stridor Discussion: Add Trelagy 1 p daily Add Singulair May need to see new cupola patcher ICD-9 : 786.1 ICD-10 : R06.1 05/06/2019 Appointment: Belia Reid WPtel: [address] [place], [place] [phone] FOLLOW UP 05/06/2019 Patient Education: Singulair- OptimizeRX [place] [phone] https://www.[employer]/WorldOne/resources/getResource/61/0355217n-v07e-52d2-ut Completed 05/06/2019 Appointment: Belia Reid WPtel: [address] [place], [place] [phone] [place] RESCHEDULED 04/30/2019 Visit Diagnosis Plan: Stridor [...] : G25.5 04/29/2019 Appointment: Belia Reid WPtel: [address] [place], [place] [phone] Hospital Follow Up 04/29/2019 Patient Education: Valium- OptimizeRX Coupon [id number] https://www.O[employer]/samplemd/resources/getResource/61/z39746gx-133f-8z10-0y Completed 04/29/2019 Visit Diagnosis Plan: Flank pain [...] : R63.5 04/16/2019 Appointment: Pattie Sotomayor [address] [place] [address] ACUTE ILLNESS 04/16/2019 Patient Education: cyclobenzaprine- OptimizeRX Coupon [id number] https://www.O[employer]/sampleDocalytics/resources/getResource/61/cr52i7a2-3287-5953-h5 Completed 04/16/2019 Visit Diagnosis Plan: Migraine, unspecif ied, not intractable, without status migrainosus Discussion: Increase gabapentin to 600mg po BID ICD-9 : 346.90 ICD-10 : G43.909 04/08/2019 Visit Diagnosis Plan: Generalized pruritus Discussion: Hydroxyzine 25mg po TID for itching and anxiety ICD-9 : 698.9 ICD-10 : L29.9 04/08/2019 Appointment: Belia Reid WPtel: [address] [place] [address] ACUTE ILLNESS 04/08/2019 Visit Diagnosis Plan: Cervicalgia [...] : M75.52 01/22/2019 Appointment: Belia Reid WPtel: [facility] Hospital Follow Up 01/22/2019 Visit Diagnosis Plan: Abdominal pain Discussion: urine culture sent to assess for any infection. rocephin given in office to cover for pyelonephritis. instructed to push fluids. call office with any new or worsening symptoms. ICD-9 : 789.00 ICD-10 : R10.9 01/07/2019 Appointment: Pattie Sotomayor [address] [place] [address] ACUTE ILLNESS 01/07/2019 Visit Diagnosis Plan: Low back pain Discussion: Stat C T of abdomen/pelvis now ICD-9 : 724.2 ICD-10 : M54.5 12/24/2018 Appointment: Belia Reid WPtel: [address] [place] [address] FOLLOW UP 12/24/2018 Visit Diagnosis Plan: Migraine, [...] : M79.7 11/20/2018 Appointment: Belia Reid WPtel: [address] [place] [address] ACUTE ILLNESS 11/20/2018 Patient Education: baclofen- OptimizeRX Coupon [id number] https://www.WorldOne.TournEase/samplemd/resources/getResource/61/6n2713w7-vt8n-29re-19 Completed 11/20/2018 Visit Diagnosis Plan: Migraine, unspecif ied, intractable, without status migrainosus Discussion: toradol/phenergan given in o ffice (60 mg toradol, 12.5 mg phenergan). instructed to call if no improvement or worsening. instructed to follow up with emergency specialist since headaches are occurring more frequently to make sure vision is not the cause. ICD-9 : 346.91 ICD-10 : G43.919 11/04/2018 Visit Diagnosis Plan: Acute sinusitis, unspecified Dis cussion: zithromax prescribed to cover for sinus infection due to length of symptoms and clinincal s/s. ICD-9 : 461.9 ICD-10 : J01.90 11/04/2018 Appointment: Pattie Sotomayor [address] [place], [place] [phone] ACUTE ILLNESS 11/04/2018 Appointment: Belia Reid WPtel: [address] [place], [place] [phone] [place] CANCELED 09/24/2018 Visit Diagnosis Plan: Type 2 diabetes me llitus with diabetic neuropathy, unspecified Discussion: Retry gabapentin 300mg po q HS ICD-9 : 250.60 ICD-10 : E11.40 09/18/2018 Visit Diagnosis Plan: Vitamin D deficiency, unspecifie d Discussion: Increase Vitamin D3 to 10,000 u daily ICD-9 : 268.9 ICD-10 : E55.9 09/18/2018 Visit Diagnosis Plan: Encounter for [facility] adult medical examination without abnormal findings Discussion: [...] : I10 09/18/2018 Appointment: Belia Reid WPtel: [address] [place], [place] [phone] Annual Well Visit 09/18/2018 Patient Education: gabapentin- OptimizeRX Coupon [phone] https://www.WorldOne.com/samplemd/resources/getResource/61/0i31ov54-6aj6-1aps-z3 Completed 09/18/2018 Visit Diagnosis Plan: Pain in [...] ICD-10 : M54.89 09/08/2018 Appointment: Pattie Sotomayor [address] [place], [place] [id number] ACUTE ILLNESS 09/08/2018 Patient Education: prednisone- OptimizeRX Coupon [phone] https://www.WorldOne.TournEase/samplemd/resources/getResource/61/7f4rh53c-9372-95k6-dm Completed 09/08/2018 Visit Diagnosis Plan: Pruritus, unspecified [...] : E10.9 08/20/2018 Appointment: Belia Reidtel: [phone] [facility] ACUTE ILLNESS 08/20/2018 Patient Education: Lexapro- OptimizeRX Coupon [id number] Completed 08/20/2018 Patient Education: hydroxyzine HCl- OptimizeRX Coupon [id number] Completed 08/20/2018 Care Plan: MAMMOGRAM SCREENING LOINC : 2 6347-5 Pending 08/20/2018 Visit Diagnosis Plan: Paroxysmal atrial fibrillation D iscussion: Discuss eliquis need with cardiology at [facility] due to cost ICD-9 : 427.31 ICD-10 : I48.0 06/19/2018 Visit Diagnosis Plan: Hypotension due to drugs Discuss ion: Discussed decreasing cardizem dose due to low BP and edema but sees cardiology next week Follow Up: 1 months ICD-9 : 458.8 ICD-10 : I95.2 06/19/2018 Appointment: Belia Reid WPtel: [address] [place], [place] [phone] [place] FOLLOW UP 06/19/2018 Visit Diagnosis Plan: [...] : R61 06/09/2018 Appointment: Belia Reid WPtel: [address] [place], [place] [phone] [place] FOLLOW UP 06/09/2018 Care Plan: CHEST X-RAY 2VW FRONTAL&LATL LOINC : 36874-0 Pending 05/26/2018 Visit Diagnosis Plan: Supraventricular tachycardia [...] : R53.1 05/21/2018 Appointment: Belia Reid WPtel: [facility] Hospital Follow Up 05/21/2018 Visit Diagnosis Plan: Cervical disc diso rder with radiculopathy, unspecified cervical region Discussion: Scheduled for surgery on 06/02 10/[address] Faulkner ICD-9 : 722.0 ICD-10 : M50.10 04/16/2018 Appointment: Belia Reid WPtel: [address] [place], [place] [phone] [place] [address] Follow Up 04/16/2018 Visit Diagnosis Plan: Fibromyalgia [...] ICD-10 : G43.919 04/01/2018 Appointment: Pattie Sotomayor [address] [place] [address] ACUTE ILLNESS 04/01/2018 Appointment: Belia Reid WPtel: [address] [place] [address] 03/17/2018 Visit Diagnosis Plan: Chronic obstructiv e [...] : E11.65 03/06/2018 Appointment: Belia Reid WPtel: [address] [place] [address] Hospital Follow Up 03/06/2018 Visit Diagnosis Plan: Cervicalgia Discussion: spoke wi th dr. reid about patient. increased gabapentin to bid and started on celebrex bid. tramadrol rx written out to take prn. keep scheduled appt next week for myelogram. ICD-9 : 723.1 ICD-10 : M54.2 02/05/2018 Appointment: Bran, Pattie R. [address] [place], [place] [id number] ACUTE ILLNESS 02/05/2018 Care Plan: X-RAY EXAM NECK SPINE 4/5VWS cervical LOINC : 17591-7 Pending 01/21/2018 Visit Diagnosis Plan: Candidiasis of [...] : M54.2 01/20/2018 Appointment: Bran Pattie R. [address] [place], [place] [phone] ACUTE ILLNESS 01/20/2018 Visit Diagnosis Plan: Pain in thoracic spine Discussio n: Proceed with CT scan of thoracic spine Will likely need PT ICD-9 : 724.1 ICD-10 : M54.6 12/25/2017 Appointment: Belia Reid WPtel: [phone] FOLLOW UP 12/25/2017 Care Plan: CT THORAX W/O DYE LOINC : 473 66-0 Pending 12/25/2017 Visit Diagnosis Plan: Pain in thoracic spine Discussio n: Stretches Alternated heat/ice Topical aspercreme with lidocaine Flexeril Recheck 1 week Flu and Pneumovax given ICD-9 : 724.1 ICD-10 : M54.6 12/17/2017 Appointment: Belia Reid WPtel: [address] ACUTE ILLNESS 12/17/2017 Patient Education: Patient [...] ICD-10 : J44.1 10/30/2017 Appointment: Belia Reidtel: [address] [place], [place] [phone] [place] FOLLOW UP 10/30/2017 Patient Education: Patient Medication Summary Completed 10/30/2017 Visit Diagnosis Plan: Chronic obstructiv e pulmonary disease with acute lower respiratory infection Discussion: Continue SVNs with albuterol q4hrs Add Trelagy 1 inhalation daily Finish steroids Increase water intake Follow Up: 1 weeks ICD-9 : 496 ICD-10 : J44.0 10/23/2017 Appointment: Belia Reidtel: [address] [place] [address] US WORK IN 10/23/2017 Patient Education: Patient Medication Summary Completed 10/23/2017 Appointment: Belia Reidtel: [address] [place], [place] [phone] [place] NO SHOW 10/16/2017 Visit Diagnosis Plan: [...] ICD-10 : E11.65 09/17/2017 Appointment: Belia Reidtel: [address] [place], [place] [phone] Annual Well Visit 09/17/2017 Patient Education: Patient Medication Summary Completed 09/17/2017 Appointment: Belia Reidtel: [address] [place], [place] [phone] [place] INJECTION 08/26/2017 Patient Education: Patient Medication Summary Completed 08/26/2017 Appointment: Belia Reidtel: [phone] [id number] US CANCELED 07/31/2017 Visit Diagnosis Plan: Encounter [...] : J20.9 07/19/2017 Appointment: Pattie Sotomayor [address] [employer] [facility] ACUTE ILLNESS 07/19/2017 Patient Education: Patient Medication Summary Completed 07/19/2017 Care Plan: MAMMOGRAM SCREENING LOINC : 2 6347-5 Pending 07/19/2017 Patient Education: Patient Medication Summary Completed 06/05/2017 Care Plan: LIPID PANEL LOINC : 58233-4 Pending 06/05/2017 Care Plan: A1C HPLC LOINC : 42417-8 Pending 06/05/2017 Visit Diagnosis Plan: Rash and [...] : R21 05/29/2017 Appointment: Pattie Sotomayor [address] [id number] FOLLOW UP 05/29/2017 Patient Education: Patient Medication Summary Completed 05/29/2017 Visit Diagnosis Plan: Tinea corporis Discussion: Diflu can and topical nystatin Follow Up: 2 weeks ICD-9 : 110.5 ICD-10 : B35.4 05/07/2017 Visit Diagnosis Plan: Diarrhea, unspecified Discussion : Diflucan Cholestyramine Recheck 2weeks ICD-9 : 787.91 ICD-10 : R19.7 05/07/2017 Appointment: Belia Reid WPtel: [address] [place], [place] [phone] [place] FOLLOW UP 05/07/2017 Patient Education: Patient Medication Summary Completed 05/07/2017 Appointment: Belia Reid WPtel: [address] [place], [place] [phone] [place] RESCHEDULED 04/30/2017 Visit Diagnosis Plan: Chronic obstructiv e pulmonary disease with (acute) exacerbation Discussion: Finish prednisone Continue S VNS with albuterol ICD-9 : 491.21 ICD-10 : J44.1 03/18/2017 Visit Diagnosis Plan: Stridor Discussion: Increase Ati van 0.5mg po to TID routinely for next week then can go back to prn ICD-9 : 786.1 ICD-10 : R06.1 03/18/2017 Appointment: Belia Reid WPtel: [address] [place], [place] [phone] ER Follow UP 03/18/2017 Patient Education: Patient [...] : E11.65 02/27/2017 Appointment: Belia Reid WPtel: [address] [place], [place] [phone] [place] FOLLOW UP 02/27/2017 Patient Education: Patient [...] : E11.65 02/22/2017 Appointment: Pattie Sotomayor [address] [facility] ACUTE ILLNESS 02/22/2017 Patient Education: Patient Medication [...] : J18.9 01/23/2017 Appointment: Belia Reid WPtel: [facility] ER Follow UP 01/23/2017 Patient Education: Patient Medication Summary Completed 01/23/2017 Appointment: Pattie Sotomayor [address] [place], [place] [address] [facility] US CANCELED 01/17/2017 Appointment: Pattie Sotomayor [address] [place], [place] [phone] Annual Well Visit 01/14/2017 Visit Diagnosis Plan: Type 2 diabetes mellitus with hy perglycemia Discussion: Check CMP, HbA1C Flu shot and Prevnar 13 given Follow Up: 3 months ICD-9 : 250.02 ICD-10 : E11.65 12/20/2016 Visit Diagnosis Plan: Localized edema Discussion: Low Na diet Compression socks/Elevate feet ICD-9 : 782.3 ICD-10 : R60.0 12/20/2016 Appointment: Belia Reid WPtel: [address] [place], [place] [address] FOLLOW UP 12/20/2016 Patient Education: Patient Medication Summary Completed 12/20/2016 Patient Education: Patient Medication Summary Completed 10/10/2016 Visit Plan: Xrays of cervical, thoracic and lumbar spine at [facility] for Mobic (stop NSAIDS except Tylenol) and Flexeril UA sent for C&S Using SVN Call in 2-3 days if pain not improved or any worsening 10/08/2016 Appointment: Celeste Ferreira WPtel: [address] [place], [place] [phone] ACUTE ILLNESS 10/08/2016 Patient Education: Patient [...] : E11.65 09/19/2016 Appointment: Belia Reid WPtel: [facility] 09/18 confirmed`sl FOLLOW UP 09/19/2016 Patient Education: [...] R10.84 08/20/2016 Appointment: Belia Reid WPtel: [address] [place], [place] [address] 08/16 confirmed~sl FOLLOW UP 08/20/2016 Patient Education: [...] : J44.9 06/19/2016 Appointment: Belia Reid WPtel: [address] [place], [place] [phone] 06/18 confirmed ~ Hospital Follow Up 06/19/2016 [...] Z87.440 06/04/2016 Appointment: Belia Reid WPtel: [address] [place], [place] [address] [place] 06/01 confirmed~sl FOLLOW UP 06/04/2016 Patient [...] : R06.1 05/02/2016 Appointment: Belia Reid WPtel: [address] [place], [place] [address] 05/01 confirmed [facility] Hospital Follow Up 05/02/2016 Patient [...] : N39.0 04/03/2016 Appointment: Belia Reid WPtel: [address] [place], [place] [phone] [facility] Follow Up 04/03/2016 Patient Education: Patient Medication Summary Completed 04/03/2016 Visit Plan: Lungs are clear Her symptoms and exam are all upper airway restriction/constriction Can try supportive care Rx as above Follow up PRN 02/29/2016 Appointment: Lidia Hwang [address] [place], [place] [phone] ACUTE ILLNESS 02/29/2016 Patient Education: Patient Medication Summary Completed 02/29/2016 Visit Plan: Toradol/Phenergan today for Migraine Change to Clindamycin to cover lactobacillus for UTI Cover with flagyl due to hx of C. Diff 02/02/2016 Appointment: Belia Reid WPtel: [address] [place], [place] [phone] 01/31 confirmed`sl ACUTE ILLNESS 02/02/2016 Patient Education: Patient Medication Summary Completed 02/02/2016 Visit Plan: Increase neurontin to 300mg q AM and 600mg q PM Discussed neurology re-evaluation Flu shot given Need to check on Pneumonia shot Rx written out for albuterol 01/05/2016 Appointment: Belia Reid WPtel: [address] [place], [place] [phone] 01/03 confirmed ~sl Annual Well Visit 01/05/2016 Patient Education: Patient Medication Summary Completed 01/05/2016 Visit Plan: Cipro Culture urine hydrate Flexeril refilled Alternate heat and ice for back Increase gabapentin to 300mg po BID Notify if worsens 12/05/2015 Appointment: Belia Reid WPtel: [address] [place] [phone] 11/30 confirmed~sl ACUTE ILLNESS 12/05/2015 Patient Education: Patient Medication Summary Completed 12/05/2015 Patient Education: Patient Medication Summary Completed 10/27/2015 Care Plan: COMPREHEN METABOLIC [place] : 73838-1 Pending 10/27/2015 Care Plan: A1C HPLC LOINC : 71420-2 Pending 10/27/2015 Visit Plan: Lungs are CTA today and is f eeling improved overall Finish meds as ordered Continue inhalers and neb treatments Discussed migraine treatment options She does not feel she needs anything additional added today Refill of Januvia sent since no samples are available today 10/26/2015 Appointment: Lidia Hwang [address] [place], [place] [address] Hospital Follow Up 10/26/2015 Appointment: Lidia Hwang [address] [place], [place] [phone] CANCELED 10/26/2015 Patient Education: Patient Medication Summary Completed 10/26/2015 Patient Education: Natalia - 18+ - KENNETH - No [place] Completed 10/26/2015 Visit Plan: Office dip still abnormal Cu lture pending Switch to cipro - stop macrobid Push fluids - avoid caffeine Will call with culture results when available Follow up if worsening 10/05/2015 Appointment: Lidia Hwang [address] [place], [place] [phone] ER Follow UP 10/05/2015 Patient Education: Patient Medication Summary Completed 10/05/2015 Visit Plan: Proceed with PT for document ation of ROM and strength of all extremities Proceed with Power Mobility Device Trial of neurontin 300mg q HS--lyrica helped but patient unable to afford Recheck 1month 09/15/2015 Appointment: Belia Reid WPtel: [address] [place], [place] [address] 09/13 confirmed~sl SPECIAL 09/15/2015 Patient Education: Patient Medication Summary Completed 09/15/2015 Visit Plan: Fille out Loan Discharge Pap erwork for total and permanent disability 08/25/2015 Patient Education: Patient Medication Summary Completed 08/25/2015 Visit Plan: Discussed with Dr Anushka Haywood at CT of head Will get last date of carotid doppler from her certified massage therapist and update if needed 08/24/2015 Appointment: Lidia Hwang [address] [place], [place] [phone] 08/22 confirmed~sl ACUTE ILLNESS 08/24/2015 Patient Education: Patient Medication Summary Completed 08/24/2015 Patient Education: Patient Medication Summary Completed 08/24/2015 Care Plan: US EXAM OF HEAD AND NECK carotid Ultrasound LOIN C : 76727-4 Pending 08/24/2015 Visit Plan: Long discussion about diet A ccuchecks daily Check HbA1C, CMP Change requip to mirapex 07/05/2015 Appointment: Belia Reid WPtel: [address] [place], [place] [address] 07/03 confirmed ~sl FOLLOW UP 07/05/2015 Patient Education: Patient Medication Summary Completed 07/05/2015 Visit Plan: Add Breo ellipta 100 1 p BID Continue SVNs with duoneb QID 06/06/2015 Appointment: Belia Reid WPtel: [address] [place], [place] [phone] Patient is calling for a ride, then [...] not improving 05/23/2015 Appointment: Huong Osborne WPtel: [address] [place], [place] [phone] ACUTE ILLNESS 05/23/2015 Appointment: Lidia Hwang [address] [place], [place] [phone] ER Follow UP 05/23/2015 Patient Education: Patient Medication Summary Completed 05/23/2015 Visit Plan: Check pancreatic enzymes and US of pancreas as patient can't understand why she has diabetes since has no family history Discussed weight, diet, exercise all play an important role in diabetes and are risk factors as well Continue Januvia and accuchecks daily 05/05/2015 Appointment: Belia Reid WPtel: [address] [place], [place] [phone] FOLLOW UP 05/05/2015 Patient Education: Patient Medication Summary Completed 05/05/2015 Care Plan: US EXAM ABDOM COMPLETE LOINC : 52211-0 Ordered 05/05/2015 Visit Plan: Start Januvia 100mg daily [place] with diflucan and culture urine Accuchecks daily alternating times Recheck 6weeks 03/30/2015 Appointment: Belia Reid WPtel: [address] [place], [place] [phone] [place] 03/29 confirmed~lb FOLLOW UP 03/30/2015 Patient Education: Patient Medication Summary Completed 03/30/2015 Appointment: Belia Reid WPtel: [address] [place], [place] [phone] [place] 03/01 needs reschedule due to payment and insurance ~sl FOLLOW UP 03/02/2015 Visit Plan: Patient was just in ER last night so has not filled scripts yet Start Carafate and Flagyl and Cipro Add Hyophen 1 po BID Recheck 1mo 02/03/2015 Appointment: Belia Reid WPtel: [address] [place], [place] [phone] 02/02lm ~sl...02/03/15 appt confirmed cn ACUTE I LLNESS 02/03/2015 Patient Education: Patient Medication Summary Completed 02/03/2015 Visit Plan: Warm soaks to vaginal area K elex and Diflucan and observe Zofran to use prn 12/29/2014 Appointment: Belia Reid WPtel: [address] [place], [place] [phone] 12/28 Confirmed ~sl ACUTE ILLNESS 12/29/2014 Patient Education: Patient Medication Summary Completed 12/29/2014 Appointment: Huong Osborne WPtel: [address] [place], [place] [phone] FOLLOW UP 09/24/2014 Appointment: Belia Reid WPtel: [address] [place], [place] [phone] 09/15 confirmed -mf FOLLOW UP 09/16/2014 Visit Plan: Increase requip to 2mg po BI D Increase lyrica to 225mg total a day by adding an extra 75mg in AM Recheck in 2weeks Continue to patch left eye while sleeping 09/02/2014 Appointment: Belia Reid WPtel: [address] [place], [place] [phone] 09/01 appt confirmed cn Hospital Follow Up 09/02 Patient Education: Patient Medication Summary Completed 09/02/2014 Visit Plan: To [facility] for observat ion to R/O CVA 08/25/2014 Appointment: Huong Osborne WPtel: [address] [place], [place] [phone] ACUTE ILLNESS 08/25/2014 Patient Education: Patient Medication Summary Completed 08/25/2014 Referral: Aaron Jonas WPtel: [facility] [id number] [facility], [id number] In [place] location Initiated 04/26/2014 Referral: Brian Srinivasan WPtel: [facility] [id number] Referral Initiated 04/20/2014 Appointment: Belia Reid WPtel: [address] [place], [place] [phone] ER Follow UP 04/01/2014 Patient Education: Patient Medication Summary Completed 04/01/2014 Care Plan: MYELOGRAPHY NECK SPINE LOINC : 41136-2 Ordered 04/01/2014 Visit Plan: Continue Symbicort 160 at 2p BID Continue SVNs with duoneb at least QID Finish Levaquin Recheck 1mo on lyrica 03/16/2014 Appointment: Belia Reid WPtel: [address] [place], [place] [phone] 03/15 voicemail FOLLOW UP 03/16/2014 Patient Education: Patient Medication Summary Completed 03/16/2014 Visit Plan: Restart SVNs with duoneb QID Repeat prednisone Levaquin Continue symbicort Keep lyrica at same dose Recheck 1week 03/09/2014 Appointment: Belia Reid WPtel: [address] [place] [address] FOLLOW UP 03/09/2014 Patient Education: Patient Medication Summary Completed 03/09/2014 Appointment: Belia Reid WPtel: [address] [place], [place] [phone] 03/03 showed up 15 minutes late for appt -- put her on Huong's side for 10:45am FORGIVEN PER DR FOLLOW UP 03/03/2014 Appointment: Huong Osborne WPtel: [address] [place] [address] FOLLOW UP 03/03/2014 Patient Education: Patient Medication Summary Completed 03/03/2014 Appointment: Huong Osborne WPtel: [address] [place], [place] [phone] ER Follow UP 03/01/2014 Patient Education: Patient Medication Summary Completed 03/01/2014 Visit Plan: Add carafate for this next m onth Increase lyrica to 150mg q HS 02/09/2014 Appointment: Belia Reidtel: [address] [place], [place] [phone] [place] [address] Follow Up 02/09/2014 Patient Education: Patient Medication Summary Completed 02/09/2014 Visit Plan: Increase omeprazole back to 40mg po BID Use requip in AM and add lyrica 75mg q HS Recheck 1mo 12/23/2013 Appointment: Belia Reid WPtel: [address] [place] [address] FOLLOW UP 12/23/2013 Patient Education: Patient Medication Summary Completed 12/23/2013 Patient Education: Patient Medication Summary Completed 12/04/2013 Appointment: Belia Reid WPtel: [address] [place] [address] 10/30/2013 Patient Education: Patient Medication Summary Completed 10/30/2013 Appointment: Belia Reid WPtel: [address] [place] [address] 10/21/2013 Patient Education: Patient Medication Summary Completed 10/21/2013 Visit Plan: Cryotherapy as above TAC and hydroxyzine to use prn to itching spots and itching SKs Add Advair HFA 115/21 1 p BID 10/05/2013 Appointment: Belia Reid WPtel: [address] [place], [place] [phone] 10/01 pt called and confirmed ACUTE ILLNESS Patient Education: Patient Medication Summary Completed 10/05/2013 Appointment: Belia Reid WPtel: [address] [place], [place] [phone] will pay copay and part of past balance FOLLOW U P 08/04/2013 Patient Education: Patient Medication Summary Completed 08/04/2013 Appointment: Belia Reid WPtel: [phone] [facility] [place] INJECTION 07/13/2013 Patient Education: Patient Medication Summary Completed 07/13/2013 Appointment: Huong Osborne WPtel: [address] [place], [place] [id number] [place] ACUTE ILLNESS 07/03/2013 Patient Education: Patient Medication Summary Completed 07/03/2013 Visit Plan: Cipro and culture urine 05/27/2013 Appointment: Huong Osborne WPtel: [address] [place], [place] [id number] [place] 05/26 confirmed appt and notified that balance and advertising copywriter y is due at appt time FOLLOW UP 05/27/2013 Patient Education: Patient Medication Summary Completed 05/27/2013 Appointment: Belia Reid WPtel: [address] [place], [place] [phone] [place] UA 05/25/2013 Patient Education: Patient Medication Summary Completed 05/25/2013 Appointment: Belia Reid WPtel: [address] [place], [place] [phone] [place] INJECTION 05/04/2013 Patient Education: Patient Medication Summary Completed 05/04/2013 Appointment: Belia Reid WPtel: [phone] [place], [place] [phone] [place] INJECTION 04/17/2013 Patient Education: Patient Medication Summary Completed 04/17/2013 Appointment: Belia Reid WPtel: [address] [place], [place] [phone] [place] INJECTION 04/15/2013 Appointment: Belia Reid WPtel: [address] [place], [place] [phone] [place] 04/02 FOLLOW UP 04/06/2013 Patient Education: Patient Medication Summary Completed 04/06/2013 Visit Plan: Obtain lab results including UA from [facility] 11/10/2012 Appointment: Belia Reid WPtel: [address] [place], [place] [phone] ER Follow UP 11/10/2012 Patient Education: Patient Medication Summary Completed 11/10/2012 Appointment: Belia Reid WPtel: [address] [place], [place] [phone] 10/30/12 patient canceled appt due to fin ances. Offered to work something out, patient declined-LB FOLLOW UP 11/05/2012 Visit Plan: Continue Bystolic at current dose Pt has fwup with Neurology on September 16 09/02/2012 Appointment: Belia Reid WPtel: [address] [place] [address] FOLLOW UP 09/02/2012 Patient Education: Patient Medication Summary Completed 09/02/2012 Visit Plan: Continue bystolic at 5mg chris ly Sees Neurology tomorrow Use oxygen at bedtime 08/04/2012 Appointment: Belia Reid WPtel: [address] [place], [place] [phone] FOLLOW UP 08/04/2012 Patient Education: Patient Medication Summary Completed 08/04/2012 Appointment: Belia Reid WPtel: [address] [place], [place] [phone] [place] [address] Hospital fwup for 07/21/12. merged appointments FOLLOW UP 07/24/2012 Visit Plan: Start Bystolic 5mg daily for tachycardia Fwup with neurology for further workup Overnight O2 sat 07/21/2012 Appointment: Belia Reid WPtel: [address] [place], [place] [phone] Hospital Follow Up 07/21/2012 Patient Education: Patient Medication Summary Completed 07/21/2012 Visit Plan: SVN with Albuterol QID Add A velox 400mg daily Notify if worsens or persists 07/02/2012 Appointment: Belia Reid WPtel: [address] [place] [address] ACUTE ILLNESS 07/02/2012 Patient Education: Patient Medication Summary Completed 07/02/2012 Appointment: Belia Reid WPtel: [phone] [facility] [place] INJECTION 06/25/2012 Patient Education: Patient Medication Summary Completed 06/25/2012 Appointment: Belia Reid WPtel: [phone] [facility] FOLLOW UP 06/24/2012 Patient Education: Patient Medication Summary Completed 06/24/2012 Appointment: Belia Reid WPtel: [phone] [facility] 05/19 left message FOLLOW UP 05/20/2012 Patient [...] TID 05/08/2012 Appointment: Belia Reid WPtel: [address] [place], [place] [id number] ACUTE ILLNESS 05/08/2012 Patient Education: Patient Medication Summary Completed 05/08/2012 Visit Plan: Continue current meds Contin ue lower dose on pain meds and Diazepam Still waiting on paperwork for botox for Migraines Will restart Neurontin at 600mg po q HS Pt going to stop Depakote due to can't afford 04/22/2012 Appointment: Belia Reid WPtel: [address] [place], [place] [id number] 04/21 Hospital Follow Up 04/22/2012 Patient Education: Patient Medication Summary Completed 04/22/2012 Visit Plan: Injection to shoulder as abo ve Continue current meds Has appointment with neurology on HAs in 02/13/2012 Appointment: Belia Reid WPtel: [facility] Pt does not have $10 copay at [facility] t time - will bring it in next week. Kianna iqbal'ed this. - [place] FOLLOW UP 02/13/2012 Patient Education: Patient Medication Summary Completed 02/13/2012 Visit Plan: Proceed with headache specia list Change nexium to Protonix Phenergan to use prn Sumatriptan to use prn Pt still on Inderal 01/28/2012 Appointment: Belia Reid WPtel: [address] [place], [place] [phone] ER Follow UP 01/28/2012 Patient Education: Patient [...] for sleep 12/26/2011 Appointment: Belia Reid WPtel: [address] [place], [place] [phone] 12/24- appt. confirmed FOLLOW UP 2 Patient Education: Patient Medication Summary Completed 12/26/2011 Appointment: Belia Reid WPtel: [address] [place], [place] [phone] [place] FOLLOW UP 11/14/2011 Patient Education: Patient Medication Summary Completed 11/14/2011 Appointment: Belia Reid WPtel: [address] [place], [place] [phone] [place] FOLLOW UP 09/12/2011 Patient Education: Patient Medication Summary Completed 09/12/2011 Visit Plan: Supportive care Decrease Liseth catalino to 50mg q HS Decrease AM dose of Valium to 5mg q HS Use Endocet sparingly 08/15/2011 Appointment: Belia Reid WPtel: [address] [place], [place] [phone] ER Follow UP 08/15/2011 Patient Education: Patient Medication Summary Completed 08/15/2011 Appointment: Belia Reid WPtel: [address] [place] [address] [place] Spoke directly to patient yesterday and confirmed the appoin tment. ACUTE ILLNESS 08/09/2011 Patient Education: Patient Medication Summary Completed 08/09/2011 Appointment: Belia Reid WPtel: [address] [place] [address] Hospital Follow Up 07/03/2011 Patient Education: Patient Medication Summary Completed 07/03/2011 Appointment: Belia Reid WPtel: [address] [place] [address] FOLLOW UP 06/04/2011 Patient Education: Patient Medication Summary Completed 06/04/2011 Visit Plan: Pt. wants "allergy shot" but in fact wants steroid shot. Will take a break from "generic Zyrtec they are getting from [facility]" and try Singulair for 2 weeks. 05/03/2011 Appointment: Iraida Jones WPtel: [address] [place] [address] ACUTE ILLNESS 05/03/2011 Patient Education: Patient Medication Summary Completed 05/03/2011 Visit Plan: Neurontin 400mg q HS for 1we ek then 800mg q HS Decrease requip to 1mg q HS for 2wks then stop Fwup 2mos 04/05/2011 Appointment: Belia Reid WPtel: [address] [place] [address] FOLLOW UP 04/05/2011 Patient Education: Patient Medication Summary Completed 04/05/2011 Visit Plan: Trial of neurontin in 2wks C ontinue current meds for stomach Pt has procedure with Dr. Ortiz next week for stone removal 03/08/2011 Appointment: Belia Reid WPtel: [address] [place], [place] [phone] Hospital Follow Up 03/08/2011 Patient Education: Patient Medication Summary Completed 03/08/2011 Appointment: Belia Reid WPtel: [address] [place], [place] [phone] [place] FOLLOW UP 02/19/2011 Visit Plan: reports [...] with Flagyl 01/24/2011 Appointment: Iraida Jones WPtel: [address] [place] [address] ACUTE ILLNESS 01/24/2011 Patient Education: Patient Medication Summary Completed 01/24/2011 Appointment: Belia Reid WPtel: [address] [place] [address] [place] FOLLOW UP 01/02/2011 Patient Education: Patient Medication Summary Completed 01/02/2011 Appointment: Belia Reid WPtel: [address] [place] [address] FOLLOW UP 12/12/2010 Appointment: Belia Reid WPtel: [address] [place] [address] ACUTE ILLNESS 12/07/2010 Patient Education: Patient Medication Summary Completed 12/07/2010 Visit Plan: Increase Buspar to 10mg po B ID 11/16/2010 Appointment: Belia Reid WPtel: [address] [place], [place] [phone] [place] FOLLOW UP 11/16/2010 Patient Education: Patient Medication Summary Completed 11/16/2010 Appointment: Iraida Jones WPtel: [address] [place], [place] [phone] ER Follow UP 11/02/2010 Patient Education: Patient Medication Summary Completed 11/02/2010 Visit Plan: Depo-Medrol/Kenalog given fo r allergies Add BuSpar for anxiety Oxycodone one p.o. q.i.d. for number 120 refilled 10/18/2010 Appointment: Belia Reid WPtel: [address] [place] [address] FOLLOW UP 10/18/2010 Patient Education: Patient Medication Summary Completed 10/18/2010 Visit Plan: Continue current meds Discus sed epidurals for back vs PT--will proceed with epidurals to thoracolumbar region to see if helps with pain 09/19/2010 Appointment: Belia Reid WPtel: [address] [place], [place] [phone] FOLLOW UP 09/19/2010 Patient Education: Patient Medication Summary Completed 09/19/2010 Visit Plan: DC MS contin Check CT scan t horacic spine Fwup pending above results 09/06/2010 Appointment: Belia Reid WPtel: [address] [place] [address] FOLLOW UP 09/06/2010 Patient Education: Patient Medication Summary Completed 09/06/2010 Visit Plan: Continue current meds Restar t MS contin 15mg po BID and use oxycodone prn Use daily senokot-s 2 po BID 08/10/2010 Appointment: Belia Reidtel: [address] [place], [place] [phone] FOLLOW UP 08/10/2010 Patient Education: Patient Medication Summary Completed 08/10/2010 Visit Plan: Depomedrol/Kenalog given Pt sees ENT later this month Cont current meds Mammo scheduled 05/11/2010 Appointment: Belia Reid WPtel: [address] [place], [place] [phone] FOLLOW UP 05/11/2010 Patient Education: Patient Medication Summary Completed 05/11/2010 Appointment: Belia Reidtel: [address] [place], [place] [phone] UA 05/04/2010 Patient Education: Patient Medication Summary Completed 05/04/2010 Visit Plan: Pt sent to lab for UA 04/28/2010 Appointment: Belia Reidtel: [address] [place], [place] [phone] [place] [address] 04/28/2010 Patient Education: Patient Medication Summary Completed 04/28/2010 Visit Plan: Check CT angiogram of chest Restart Advair Use proair prn Cont current meds Fwup with Card as schedulec 04/06/2010 Appointment: Belia Reid WPtel: [address] [place] [address] Follow Up 04/06/2010 Patient Education: Patient Medication Summary Completed 04/06/2010 Visit Plan: Paperwork filled out for pow erchair Depomedrol/kenalog given Pt sees ENT in 2wks to assess nasal obstruction problems 02/09/2010 Appointment: Belia Reidtel: [address] [place] [address] ESTABLISHED PATIENT 02/09/2010 Patient Education: Patient Medication Summary Completed 02/09/2010 Visit Plan: Change Elavil to Trazadone 1 50mg q HS Diflucan and nystatin for tinea cruris 01/05/2010 Appointment: Belia Reidtel: [address] [place] [address] FOLLOW UP 01/05/2010 Patient Education: Patient Medication Summary Completed 01/05/2010 Appointment: Belia Reidtel: [address] [place] [address] FOLLOW UP 12/07/2009 Patient Education: Patient Medication Summary Completed 12/07/2009 Appointment: Belia Reid WPtel: [address] [place] [address] FOLLOW UP 11/22/2009 Visit Plan: Cont current meds and await MRI results from Dr. Meadows's office and his final recommendations Will need to follow-up at later date on deviated septum 11/08/2009 Appointment: Belia Reid WPtel: [address] [place], [place] [phone] FOLLOW UP 11/08/2009 Patient Education: Patient Medication Summary Completed 11/08/2009 Visit Plan: Cont PT/OT See Neurosurgery Cont Dwain arora 10/24/2009 Appointment: Belia Reid WPtel: [address] [place], [place] [phone] FOLLOW UP 10/24/2009 Patient Education: Patient Medication Summary Completed 10/24/2009 Appointment: Belia Reid WPtel: [address] [place], [place] [phone] Hospital Follow Up 10/17/2009 Appointment: Belia Reid WPtel: [address] [place], [place] [phone] ACUTE ILLNESS 07/25/2009 Patient Education: Patient Medication Summary Completed 07/25/2009 Appointment: Belia Reid WPtel: [address] [place], [place] [phone] FOLLOW UP 05/26/2009 Patient Education: Patient Medication Summary Completed 05/26/2009 Referral: Chino Balderas WPtel: [facility] [place] Referral Initiated Referral: Merry Vale WPtel: [facility] [id number] Vale will review referral and book appointment Completed Referral: Francisco Javier Yoder WPtel: [address] [id number] [place] Patient needs EGD insurance will not inc rease a medication unless this procedure results show a need Completed Referral: Francisco Javier Yoder WPtel: [address] [id number] [place] Referral Historical Reference Referral: Francisco Javier Yoder WPtel: [address] [id number] [place] Referral Initiated Instructions Comment . Xrays [...] last date of carotid doppler from her certified massage therapist and update if needed . Long discussion [...] from "generic Zyrtec they are getting from [facility]" and try Singulair for 2 weeks. . [...]
--- OUTSIDE RECORDS SUMMARY | 2019-08-27 07:49 | XMS REPORT | CCD ---
Author Author Diana Reid D.O. Organization [facility] Address [address] [place] [address] Phone Care Team Providers Care Candy Roller Name Role Phone [facility] D[facility] PP Unavailable CCM Unavailable Summary Purpose Interface Exchange Insurance Providers Payer name Policy type / Coverage type Covered democrat ID Effective Begin Date Effective End Date [employer] MEDICARE Medicare Part B [id number] 2019 Unknown Family History Family History data not found Social History Social History Element Codes Description Effective Dates Tobacco history SNOMED CT: 221497021 Nonsmoker 09/13/2010 Allergies, Adverse Reactions, Alerts Substance Reaction Codes Entered Date Inactivated Date Status Eggs reaction [id number] 09/15/2015 No Inactive Date Active _ Unknown 01/07/2019 No Inactive Date Active PENICILLINS Unknown 01/07/2019 No Inactive Date Active SULFA (SULFONAMIDES) rash Unknown 11/02/2010 No Inactive Mike e Active Problems Condition Codes Effective Dates Condition Status Screening mammogram, encounter for ICD-9: V76.12 ICD-10: [...] ICD -9: 496 ICD-10: J44.9 09/14/2015 Active Muscle weakness ICD-9: 728.87 ICD-10: M62.81 [...] Start Date Stop Date Status Fill Instructions Insulin Syringe 1 mL 29 gauge x 1/2" RxNorm: 2 s yringes daily with insulin Dx: E11.65 08/12/2019 No Stop Date Active Ativan 0.5 mg tablet RxNorm: 842894 1 Tablet(s) Oral th ree times a day for anxiety/shortness of air/stridor 07/29/2019 08/27/2019 Active Singulair 10 mg tablet RxNorm: 172191 1 Tablet(s) Oral QPM 07/29/19 20 01/25/2020 Active diltiazem CD 240 mg capsule,extended release 24 hr RxNorm: 8 66305 1 Capsule(s) Oral QD 07/15/2019 01/10/2020 Active metoprolol tartrate 50 mg tablet RxNorm: 492689 1 Table t(s) Oral two times a day 07/06/2019 No Stop Date Active Novolin N NPH U-100 Insulin isophane 100 unit/mL subcu taneous susp RxNorm: 833989 25 Unit(s) Subcutaneous two times a day 07/06/2019 07/06/2019 I nactive Colestid 1 gram tablet RxNorm: 6330256 1 Tablet(s) Oral two times a day for diarrhea 07/06/2019 09/04/2019 Active pramipexole 1 mg tablet RxNorm: 307689 1 Tablet(s) Oral QPM FOR RESTLESS LEGS (REPLACES REQUIP) 06/25/2019 06/19/2020 Active hydroxyzine HCl 25 mg tablet RxNorm: 779039 1 Tablet(s) Oral QPM for itching/aniety 06/25/2019 09/23/2019 Active Ativan 0.5 mg tablet RxNorm: 289864 1 Tablet(s) Oral th ree times a day for anxiety/shortness of air/stridor 06/25/2019 07/25/2019 Inactive Levaquin 500 mg tablet RxNorm: 316326 1 Tablet(s) Oral QD 06/16/2019 06/23/2019 Inactive Flagyl 500 mg tablet RxNorm: 484582 1 Tablet(s) Oral three time s a day 06/16/2019 06/23/2019 Inactive Vancocin 125 mg capsule RxNorm: 861790 1 Capsule(s) Oral four t imes a day 06/08/2019 06/18/2019 Inactive omeprazole 40 mg capsule,delayed release RxNorm: 915822 1 Capsule(s) Oral two times a day 05/26/2019 11/21/2019 Active Flagyl 500 mg tablet RxNorm: 801113 1 Tablet(s) Oral three time s a day 05/26/2019 06/05/2019 Inactive diltiazem CD 240 mg capsule,extended release 24 hr RxNorm: 8 83070 1 Capsule(s) Oral QD 05/26/2019 07/14/2019 Inactive Cipro 250 mg tablet RxNorm: 136815 1 Tablet(s) Oral two times a day 05/26/2019 06/02/2019 Inactive hydroxyzine HCl 25 mg tablet RxNorm: 053604 1 Tablet(s) Oral QPM for itching/aniety 05/21/2019 06/24/2019 Inactive metoprolol tartrate 25 mg tablet RxNorm: 084678 1 Table t(s) Oral two times a day 05/21/2019 07/05/2019 Inactive hydroxyzine HCl 25 mg tablet RxNorm: 927764 1 Tablet(s) Oral QPM for itching/aniety 05/13/2019 05/20/2019 Inactive Singulair 10 mg tablet RxNorm: 052510 1 Tablet(s) Oral QPM 05/06/19 20 05/12/2019 Inactive gabapentin 600 mg tablet RxNorm: 819939 1 Tablet(s) Oral QD 020 06/05/2019 Inactive Valium 5 mg tablet RxNorm: 391186 1 Tablet(s) Oral QPM for stri joao/muscle spasm 04/29/2019 06/24/2019 Inactive baclofen 10 mg tablet RxNorm: 187946 1 Tablet(s) Oral QPM for s pasm/neck pain 04/24/2019 05/23/2019 Inactive baclofen 10 mg tablet RxNorm: 089260 1 Tablet(s) Oral QPM for s pasm/neck pain 04/24/2019 04/23/2019 Inactive Novolin N NPH U-100 Insulin isophane 100 unit/mL subcu taneous susp RxNorm: 350930 23 Unit(s) Subcutaneous two times a day 04/20/2019 07/05/2019 I nactive cyclobenzaprine 5 mg tablet RxNorm: 055275 1 Tablet(s) Oral three times a day as needed 04/16/2019 04/23/2019 Inactive hydroxyzine HCl 25 mg tablet RxNorm: 443589 1 Tablet(s) Oral three times a day for itching/aniety 04/08/2019 05/12/2019 Inactive gabapentin 600 mg tablet RxNorm: 569410 1 Tablet(s) Oral two ti mes a day 04/08/2019 05/05/2019 Inactive gabapentin 600 mg tablet RxNorm: 451180 1 Tablet(s) Oral two ti mes a day 04/08/2019 04/07/2019 Inactive Novolin N NPH U-100 Insulin isophane 100 unit/mL subcu taneous susp RxNorm: 061213 10 Unit(s) Subcutaneous two times a day 03/03/2019 04/19/2019 I nactive gabapentin 300 mg capsule RxNorm: 287748 1 Capsule(s) O ral every night at bedtime for neuropathy 02/26/2019 04/07/2019 Inactive gabapentin 300 mg capsule RxNorm: 231747 1 Capsule(s) O ral every night at bedtime for neuropathy 02/20/2019 02/25/2019 Inactive buspirone 5 mg tablet RxNorm: 898036 TAKE 1 TABLET THREE TIMES MILDRED Y 02/12/2019 05/12/2019 Inactive pramipexole 1 mg tablet RxNorm: 222076 1 Tablet(s) Oral QPM FOR RESTLESS LEGS (REPLACES REQUIP) 02/12/2019 06/24/2019 Inactive Lexapro 10 mg tablet RxNorm: 702358 TAKE 1 TABLET EVERY DAY FOR MOO D 01/31/2019 No Stop Date Active Ativan 0.5 mg tablet RxNorm: 324030 TAKE 1 TABLET BY MO UT THREE TIMES DAILY NEEDED FOR ANXIETY 01/26/2019 04/28/2019 Inactive Ativan 0.5 mg tablet RxNorm: 794489 TAKE 1 TABLET BY MO UT THREE TIMES DAILY NEEDED FOR ANXIETY 01/05/2019 01/05/2019 Inactive Levaquin 500 mg tablet RxNorm: 144801 1 Tablet(s) Oral QD 12/25/2018 12/24/2018 Inactive Levaquin 500 mg tablet RxNorm: 880509 1 Tablet(s) Oral QD 12/25/2018 01/04/2019 Inactive baclofen 10 mg tablet RxNorm: 163582 1 Tablet(s) Oral three maico es a day 11/20/2018 01/19/2019 Inactive Ativan 0.5 mg tablet RxNorm: 232127 TAKE 1 TABLET BY [facility] THREE TIMES DAILY NEEDED FOR ANXIETY 11/20/2018 01/04/2019 Inactive gabapentin 300 mg capsule RxNorm: 626217 1 Capsule(s) O ral every night at bedtime for neuropathy 11/20/2018 12/20/2018 Inactive Lexapro 10 mg tablet RxNorm: 157847 1 Tablet(s) PO QD for mood 07/201801/30/2019 Inactive Zithromax Z-Lj 250 mg tablet RxNorm: 487015 Tablet(s) PO take as directed 11/04/2018 11/19/2018 Inactive Insulin Syringe 1 mL 29 gauge x 1/2" RxNorm: 2 s yringes daily with insulin Dx: E11.65 10/08/2018 08/11/2019 Inactive gabapentin 300 mg capsule RxNorm: 739877 1 Capsule(s) PO QHS fo r neuropathy 09/18/2018 10/17/2018 Inactive cyclobenzaprine 5 mg tablet RxNorm: 911600 1 Tablet(s) PO TID a s needed 09/09/2018 09/08/2018 Inactive cyclobenzaprine 5 mg tablet RxNorm: 506138 1 Tablet(s) PO TID a s needed 09/09/2018 10/08/2018 Inactive prednisone 20 mg tablet RxNorm: 519651 1 Tablet(s) PO QD 09/08/2018 0 09/12/2018 Inactive Lantus Solostar U-100 Insulin 100 unit/mL (3 mL) subcu taneous pen RxNorm: 039166 55 Unit(s) SQ QAM 08/28/2018 11/03/2018 Inactive hydroxyzine HCl 25 mg tablet RxNorm: 865997 1 Tablet(s) PO QHS for itching 08/20/2018 05/12/2019 Inactive Lexapro 10 mg tablet RxNorm: 641042 1 Tablet(s) PO QD for mood 08/0210/18/2018 Inactive sumatriptan 100 mg tablet RxNorm: 270992 1 Tablet(s) PO at headache onset. May repeat 1 in two hours if headache remains. Max of 2 per 24 hours 04/02/2018 05/20/2018 Inactive Diflucan 150 mg tablet RxNorm: 316958 1 Tablet(s) PO QD 03/18/2018 Inactive Diflucan 150 mg tablet RxNorm: 344161 1 Tablet(s) PO QD 03/18/2018 Inactive Flagyl 500 mg tablet RxNorm: 383744 1 Tablet(s) PO TID 03/17/2018 Inactive Levaquin 500 mg tablet RxNorm: 992998 1 Tablet(s) PO QD 03/17/2018 Inactive Levaquin 500 mg tablet RxNorm: 191445 1 Tablet(s) PO QD 03/17/2018 Inactive Flagyl 500 mg tablet RxNorm: 552422 1 Tablet(s) PO TID 03/17/2018 Inactive ketoconazole 200 mg tablet RxNorm: 068533 1 Tablet(s) PO QD 019 03/19/2018 Inactive Celebrex 200 mg capsule RxNorm: 246441 1 Capsule(s) PO BID 02/06/20 18 05/20/2018 Inactive tramadol 50 mg tablet RxNorm: 624813 1 Tablet(s) PO TID as needed 1 04/08/2017 05/20/2018 Inactive gabapentin 300 mg capsule RxNorm: 157623 1 Capsule(s) PO BID 201705/20/2018 Inactive Diflucan 150 mg tablet RxNorm: 958489 1 Tablet(s) PO QD 01/20/2018 Inactive pramipexole 1 mg tablet RxNorm: 037667 1 Tablet(s) PO Q PM FOR RESTLESS LEGS (REPLACES REQUIP) 01/08/2018 02/11/2019 Inactive cyclobenzaprine 10 mg tablet RxNorm: 456685 1 Tablet(s) PO TID as needed for muscle spasm 12/17/2017 05/20/2018 Inactive pramipexole 1 mg tablet RxNorm: 917800 TAKE 1 TABLET BY MOUTH ONCE DAILY IN THE EVENING FOR RESTLESS LEGS (REPLACES REQUIP) 12/04/2017 01/05/2018 Inac tive Amaryl 4 mg tablet RxNorm: 935352 1 Tablet(s) PO BID replaces 2mg 0 11/05/2017 12/16/2017 Inactive Singulair 10 mg tablet RxNorm: 123766 1 Tablet(s) PO QHS for al lergies/lungs 10/30/2017 12/16/2017 Inactive Diflucan 100 mg tablet RxNorm: 054191 1 Tablet(s) PO QD 10/23/2017 Inactive Ativan 0.5 mg tablet RxNorm: 019105 TAKE 1 TABLET BY MOUTH THRE E TIMES DAILY 08/30/2017 11/20/2018 Inactive buspirone 5 mg tablet RxNorm: 869231 1 Tablet(s) PO TID 07/11/2017 Inactive propranolol 60 mg tablet RxNorm: 597262 1 Tablet(s) PO BID repl aces 40mg dose 06/26/2017 12/16/2017 Inactive Amaryl 4 mg tablet RxNorm: 069301 1 Tablet(s) PO BID replaces 2mg 0 06/12/2017 11/05/2017 Inactive omeprazole 40 mg capsule,delayed release RxNorm: 516993 1 Capsule(s) PO BID TAKE ONE CAPSULE BY MOUTH TWICE DAILY 05/30/2017 11/25/2017 Inactive pramipexole 1 mg tablet RxNorm: 941460 1 Tablet(s) PO Q PM for restless legs--replaces requip 05/30/2017 11/25/2017 Inactive amitriptyline 50 mg tablet RxNorm: 798192 1 Tablet(s) PO QHS 201709/16/2017 Inactive Diflucan 100 mg tablet RxNorm: 236003 1 Tablet(s) PO BID 05/07/2017 0 05/20/2017 Inactive nystatin (bulk) 100 million unit powder RxNorm: Application TO P BID 05/07/2017 05/20/2018 Inactive cholestyramine (with sugar) 4 gram oral powder RxNorm: 255591 1 Unit Dose PO QD 05/07/2017 01/20/2018 Inactive Ativan 0.5 mg tablet RxNorm: 764581 TAKE ONE TABLET BY MOUTH TH REE TIMES DAILY 05/01/2017 09/02/2017 Inactive Trulicity 1.5 mg/0.5 mL subcutaneous pen injector RxNorm: 15 39577 1 Unit Dose SQ WEEKLY 02/22/2017 03/23/2017 Inactive doxycycline hyclate 100 mg capsule RxNorm: 3355300 1 Capsule(s) PO BID 01/23/2017 02/05/2017 Inactive Amaryl 4 mg tablet RxNorm: 954781 1 Tablet(s) PO BID replaces 2mg 1 03/25/2016 05/22/2017 Inactive magnesium oxide 400 mg capsule RxNorm: 838209 1 Capsule(s) PO QD 07/18/2017 Inactive Ativan 0.5 mg tablet RxNorm: 055349 TAKE ONE TABLET BY MOUTH TH REE TIMES DAILY 01/17/2017 05/01/2017 Inactive Amaryl 2 mg tablet RxNorm: 211638 1 Tablet(s) PO BID 12/27/201601/22 Inactive Amaryl 2 mg tablet RxNorm: 746913 1 Tablet(s) PO BID 12/26/201612/26 Inactive Ativan 0.5 mg tablet RxNorm: 506103 TAKE ONE TABLET BY MOUTH TH REE TIMES DAILY 12/05/2016 01/18/2017 Inactive pramipexole 1 mg tablet RxNorm: 441331 1 Tablet(s) PO Q PM for restless legs--replaces requip 11/26/2016 05/30/2017 Inactive Mobic 15 mg tablet RxNorm: 255391 1 Tablet(s) PO QD 10/08/20162016 Inactive cyclobenzaprine 5 mg tablet RxNorm: 729316 1/2- 1 Tablet(s) PO TID 10/08/2016 10/17/2016 Inactive Ativan 0.5 mg tablet RxNorm: 776283 1 Tablet(s) PO TID 09/20/201607/2016 Inactive amitriptyline 50 mg tablet RxNorm: 156226 1 Tablet(s) PO QHS 201605/30/2017 Inactive propranolol 60 mg tablet RxNorm: 693456 1 Tablet(s) PO BID repl aces 40mg dose 09/19/2016 06/26/2017 Inactive Ativan 0.5 mg tablet RxNorm: 027599 1 Tablet(s) PO TID 08/20/2016 Inactive omeprazole 40 mg capsule,delayed release RxNorm: 064001 1 Capsule(s) PO BID TAKE ONE CAPSULE BY MOUTH TWICE DAILY 08/20/2016 05/30/2017 Inactive amitriptyline 50 mg tablet RxNorm: 798161 1 Tablet(s) PO QHS 201609/18/2016 Inactive pramipexole 1 mg tablet RxNorm: 429560 1 Tablet(s) PO Q PM for restless legs--replaces requip 07/23/2016 11/25/2016 Inactive Amaryl 2 mg tablet RxNorm: 604524 1 Tablet(s) PO BID 07/23/201612/27 Inactive propranolol 40 mg tablet RxNorm: 953170 1 Tablet(s) PO BID 07/13/1909/18/2016 Inactive Ativan 0.5 mg tablet RxNorm: 672951 1 Tablet(s) PO QID 06/19/2016 Inactive Amaryl 2 mg tablet RxNorm: 317715 1 Tablet(s) PO BID 06/19/201607/22 Inactive Ativan 0.5 mg tablet RxNorm: 658742 1 Tablet(s) PO QID 06/19/2016 Inactive buspirone 5 mg tablet RxNorm: 132061 1 Tablet(s) PO TID 06/19/2016 Inactive Ativan 0.5 mg tablet RxNorm: 973223 1 Tablet(s) PO BID 05/24/2016 Inactive buspirone 5 mg tablet RxNorm: 668144 1 Tablet(s) PO TID 05/23/2016 Inactive Macrobid 100 mg capsule RxNorm: 717749 1 Capsule(s) PO QOD 05/03/19 17 10/07/2016 Inactive pramipexole 1 mg tablet RxNorm: 886602 Tablet(s) 1 Tabl et(s) PO QPM for restless legs--replaces requip 04/26/2016 06/24/2016 Inactive propranolol 40 mg tablet RxNorm: 988983 TAKE ONE TABLET BY MOUT H TWICE DAILY 04/26/2016 06/24/2016 Inactive Detrol LA 4 mg capsule,extended release RxNorm: 986179 1 Capsul e(s) PO QHS 04/03/2016 05/02/2016 Inactive prednisone 20 mg tablet RxNorm: 556876 1 Tablet(s) PO QD 02/29/2016 0 03/04/2016 Inactive Actos 30 mg tablet RxNorm: 937986 TAKE ONE TABLET BY MOUTH ONCE DAILY 02/27/2016 12/19/2016 Inactive clindamycin 300 mg capsule RxNorm: 488348 1 Capsule(s) PO TID 02/0102/08/2016 Inactive Flagyl 500 mg tablet RxNorm: 824962 1 Tablet(s) PO BID 02/02/201609/2015 Inactive omeprazole 40 mg capsule,delayed release RxNorm: 962814 TAKE ONE CAPSULE BY MOUTH TWICE DAILY 01/15/2016 07/12/2016 Inactive gabapentin 300 mg capsule RxNorm: 474075 1 Capsule(s) PO QAM an d 2 po q HS 01/05/2016 06/18/2016 Inactive gabapentin 300 mg capsule RxNorm: 882511 1 Capsule(s) P O BID 1 Capsule(s) PO QHS 12/05/2015 01/04/2016 Inactive cyclobenzaprine 10 mg tablet RxNorm: 978504 1 Tablet(s) PO TID for spasm as needed for muscle spasm 12/05/2015 06/18/2016 Inactive ciprofloxacin 250 mg tablet RxNorm: 734101 1 Tablet(s) PO BID 12/0412/14/2015 Inactive pramipexole 1 mg tablet RxNorm: 941694 Tablet(s) 1 Tabl et(s) PO QPM for restless legs--replaces requip 11/07/2015 11/26/2016 Inactive Januvia 100 mg tablet RxNorm: 361770 1 Tablet(s) PO QD 10/26/201504/2015 Inactive propranolol 40 mg tablet RxNorm: 439349 TAKE ONE TABLET BY MOUT H TWICE DAILY 10/25/2015 04/21/2016 Inactive gabapentin 300 mg capsule RxNorm: 591547 1 Capsule(s) PO QHS 201512/04/2015 Inactive Cipro 500 mg tablet RxNorm: 563354 1 Tablet(s) PO BID 10/05/2015 08/11/2015 Inactive pramipexole 1 mg tablet RxNorm: 370910 Tablet(s) 1 Tabl et(s) PO QPM for restless legs--replaces requip 10/04/2015 11/02/2015 Inactive propranolol 40 mg tablet RxNorm: 423636 TAKE ONE TABLET BY MOUT H TWICE DAILY 09/26/2015 10/24/2015 Inactive Amaryl 2 mg tablet RxNorm: 597726 1 Tablet(s) PO QD 09/15/20152016 Inactive gabapentin 300 mg capsule RxNorm: 403234 1 Capsule(s) PO QHS 201510/14/2015 Inactive buspirone 5 mg tablet RxNorm: 758323 1 Tablet(s) PO TID 09/15/2015 Inactive pramipexole 1 mg tablet RxNorm: 730004 Tablet(s) 1 Tabl et(s) PO QPM for restless legs--replaces requip 09/08/2015 10/03/2015 Inactive pramipexole 1 mg tablet RxNorm: 361747 1 Tablet(s) PO Q PM for restless legs--replaces requip 08/08/2015 09/08/2015 Inactive Amaryl 2 mg tablet RxNorm: 055462 1 Tablet(s) PO QD 07/07/20152015 Inactive pramipexole 1 mg tablet RxNorm: 305315 1 Tablet(s) PO Q PM for restless legs--replaces requip 07/05/2015 08/03/2015 Inactive ropinirole 2 mg tablet RxNorm: 946594 TAKE ONE TABLET BY MOUTH TWICE DAILY 05/09/2015 09/14/2015 Inactive Diflucan 100 mg tablet RxNorm: 956720 1 Tablet(s) PO QD 03/30/2015 Inactive propranolol 40 mg tablet RxNorm: 520860 1 Tablet(s) PO BID 02/24/20 15 08/21/2015 Inactive [SAVINGS FOR UNINSURED PATIE NTS -- BIN:693633, PCN: ASPROD1, Group: AME08, ID# [id number], Process claim through [employer], for questions: . THIS IS NOT INSURANCE.] Flagyl 500 mg tablet RxNorm: 635041 1 Tablet(s) PO BID 02/03/201502/2015 Inactive Cipro 500 mg tablet RxNorm: 291481 1 Tablet(s) PO BID 02/03/201502/01 Inactive Carafate 1 gram tablet RxNorm: 839989 1 Tablet(s) PO QID make i nto slurry 02/03/2015 09/14/2015 Inactive ondansetron HCl 4 mg tablet RxNorm: 587084 1 Tablet(s) PO Q4H as needed for nausea 12/29/2014 01/04/2016 Inactive Diflucan 100 mg tablet RxNorm: 610902 1 Tablet(s) PO QD 12/29/2014 Inactive Keflex 500 mg capsule RxNorm: 134902 1 Capsule(s) PO TID 12/29/2014 1 03/09/2014 Inactive omeprazole 40 mg capsule,delayed release RxNorm: 588517 1 Capsu le(s) PO BID 12/27/2014 12/21/2015 Inactive [SAVINGS FOR UNINSUR ED PATIENTS -- BIN:475297, PCN: ASPROD1, Group: AME08, ID# [id number], Process claim through [employer], for questions: . THIS IS NOT INSURANCE.] ropinirole 2 mg tablet RxNorm: 185946 1 Tablet(s) PO BID 09/29/2014 0 03/27/2015 Inactive [SAVINGS FOR UNINSURED PATIENTS -- BIN:0 24239, PCN: ASPROD1, Group: AME08, ID# [id number], Process claim through [employer], for questions: . THIS IS NOT INSURANCE.] buspirone 5 mg tablet RxNorm: 357805 1 Tablet(s) PO TID 09/17/2014 Inactive ropinirole 2 mg tablet RxNorm: 745779 1 Tablet(s) PO BID 09/02/2014 0 09/28/2014 Inactive [SAVINGS FOR UNINSURED PATIENTS -- BIN:0 16038, PCN: ASPROD1, Group: AME08, ID# [id number], Process claim through [employer], for questions: . THIS IS NOT INSURANCE.] Zyrtec 10 mg tablet RxNorm: 1663594 1 Tablet(s) PO QD 09/02/201412/02 Inactive propranolol 40 mg tablet RxNorm: 985524 1 Tablet(s) PO BID 07/21/19 15 02/23/2015 Inactive [SAVINGS FOR UNINSURED PATIE NTS -- BIN:357252, PCN: ASPROD1, Group: AME08, ID# [id number], Process claim through [employer], for questions: . THIS IS NOT INSURANCE.] ropinirole 2 mg tablet RxNorm: 556557 1 Tablet(s) PO QHS 05/14/2014 0 09/01/2014 Inactive [SAVINGS FOR UNINSURED PATIENTS -- BIN:0 67969, PCN: ASPROD1, Group: AME08, ID# [id number], Process claim through [employer], for questions: . THIS IS NOT INSURANCE.] cyclobenzaprine 10 mg tablet RxNorm: 467150 1 Tablet(s) PO QHS for spasm 04/06/2014 09/01/2014 Inactive ipratropium-albuterol 0.5 mg-3 mg(2.5 mg base)/3 mL ne bulization soln RxNorm: 6931886 1 Unit Dose INH Q4H 03/16/2014 No Stop Date Active [SAVINGS FOR UNINSURED PATIENTS -- BIN:860970, PCN: ASPROD1, Group: AME08, ID# [id number], Process claim through [employer], for questions: . THIS IS NOT INSURANCE.] prednisone 20 mg tablet RxNorm: 455311 1 Tablet(s) PO BID 03/09/2014 03/15/2014 Inactive [SAVINGS FOR UNINSURED PATIENTS -- BIN:0 58682, PCN: ASPROD1, Group: AME08, ID# [id number], Process claim through [employer], for questions: . THIS IS NOT INSURANCE.] ipratropium-albuterol 0.5 mg-3 mg(2.5 mg base)/3 mL ne bulization soln RxNorm: 7893798 1 Unit Dose INH Q4H 03/09/2014 03/15/2014 Inactive [SAVINGS FOR UNINSURED PATIENTS -- BIN:909279, PCN: ASPROD1, Group: AME08, ID# [id number], Process claim through [employer], for questions: . THIS IS NOT INSURANCE.] Levaquin 500 mg tablet RxNorm: 033546 1 Tablet(s) PO QD 03/09/2014 Inactive [SAVINGS FOR UNINSURED PATIENTS -- BIN:0 00090, PCN: ASPROD1, Group: AME08, ID# [id number], Process claim through [employer], for questions: . THIS IS NOT INSURANCE.] Carafate 1 gram tablet RxNorm: 605720 1 Tablet(s) PO AC & HS ma ke into slurry 02/09/2014 09/01/2014 Inactive [SAVINGS FOR UNINSUR ED PATIENTS -- BIN:396396, PCN: ASPROD1, Group: AME08, ID# [id number], Process claim through [employer], for questions: . THIS IS NOT INSURANCE.] Fioricet 50 mg-300 mg-40 mg capsule RxNorm: 1729717 1-2 Capsule(s) PO Q4H as needed for headache --max of 6 a day 02/09/2014 09/01/2014 Inactive [SAVINGS FOR UNINSURED PATIENTS -- BIN:671713, PCN: ASPROD1, Group: AME08, ID# [id number], Process claim through [employer], for questions: . THIS IS NOT INSURANCE.] propranolol 40 mg tablet RxNorm: 292275 1 Tablet(s) PO BID 12/08/19 14 06/04/2014 Inactive [SAVINGS FOR UNINSURED PATIE NTS -- BIN:420567, PCN: ASPROD1, Group: AME08, ID# [id number], Process claim through [employer], for questions: . THIS IS NOT INSURANCE.] buspirone 5 mg tablet RxNorm: 449816 1 Tablet(s) PO TID 12/02/2013 Inactive omeprazole 40 mg capsule,delayed release RxNorm: 906537 1 Capsu le(s) PO BID 11/25/2013 11/19/2014 Inactive [SAVINGS FOR UNINSUR ED PATIENTS -- BIN:852280, PCN: ASPROD1, Group: AME08, ID# [id number], Process claim through [employer], for questions: . THIS IS NOT INSURANCE.] ropinirole 2 mg tablet RxNorm: 382636 1 Tablet(s) PO QHS 11/10/2013 0 05/08/2014 Inactive [SAVINGS FOR UNINSURED PATIENTS -- BIN:0 18252, PCN: ASPROD1, Group: AME08, ID# [id number], Process claim through [employer], for questions: . THIS IS NOT INSURANCE.] Cipro 500 mg tablet RxNorm: 113380 1 Tablet(s) PO BID 10/21/201312/03 Inactive [SAVINGS FOR UNINSURED PATIENTS -- BIN:0 26892, PCN: ASPROD1, Group: AME08, ID# [id number], Process claim through [employer], for questions: . THIS IS NOT INSURANCE.] hydroxyzine HCl 25 mg tablet RxNorm: 283516 1 Tablet(s) PO Q4-6 H as needed 10/05/2013 01/04/2016 Inactive [SAVINGS FOR UNINSUR ED PATIENTS -- BIN:876265, PCN: ASPROD1, Group: AME08, ID# [id number], Process claim through [employer], for questions: . THIS IS NOT INSURANCE.] triamcinolone acetonide 0.1 % topical cream RxNorm: 8457211 Appl ication TOP BID 10/05/2013 09/01/2014 Inactive [SAVINGS FOR UNINSUR ED PATIENTS -- BIN:522013, PCN: ASPROD1, Group: AME08, ID# [id number], Process claim through [employer], for questions: . THIS IS NOT INSURANCE.] albuterol sulfate HFA 90 mcg/actuation aerosol inhaler RxNor m: 2607808 2 Puff(s) INH Q4H as needed for cough 10/01/2013 12/22/2013 Inactive [MAKSIM INGS FOR UNINSURED PATIENTS -- BIN:245755, PCN: ASPROD1, Group: AME08, ID# [id number], Process claim through [employer], for questions: . THIS IS NOT INSURANCE.] propranolol 40 mg tablet RxNorm: 563929 1 Tablet(s) PO BID 09/02/19 14 11/29/2013 Inactive [SAVINGS FOR UNINSURED PATIE NTS -- BIN:711247, PCN: ASPROD1, Group: AME08, ID# [id number], Process claim through [employer], for questions: . THIS IS NOT INSURANCE.] propranolol 40 mg tablet RxNorm: 757032 1 Tablet(s) PO BID 08/05/19 14 08/31/2013 Inactive [SAVINGS FOR UNINSURED PATIE NTS -- BIN:210097, PCN: ASPROD1, Group: AME08, ID# [id number], Process claim through [employer], for questions: . THIS IS NOT INSURANCE.] Toprol XL 50 mg tablet,extended release RxNorm: 955163 1 Tablet (s) PO QHS 07/23/2013 08/03/2013 Inactive Macrobid 100 mg capsule RxNorm: 078193 1 Capsule(s) PO BID 07/04/19 14 07/09/2013 Inactive Toprol XL 50 mg tablet,extended release RxNorm: 177011 1 Tablet (s) PO QHS 05/28/2013 06/26/2013 Inactive ciprofloxacin 500 mg tablet RxNorm: 410904 1 Tablet(s) PO BID 05/2706/02/2013 Inactive Bystolic 5 mg tablet RxNorm: 067513 1 Tablet(s) PO QD 05/27/201305/03 Inactive ropinirole 2 mg tablet RxNorm: 453238 1 Tablet(s) PO QHS 04/22/2013 0 11/09/2013 Inactive Cipro 250 mg tablet RxNorm: 316989 1 Tablet(s) PO BID 04/06/201311/2013 Inactive ropinirole 2 mg tablet RxNorm: 470216 1 Tablet(s) PO QHS 02/17/2013 0 04/21/2013 Inactive Amaryl 2 mg tablet RxNorm: 107958 1 Tablet(s) PO QAM 11/11/201211/10 Inactive Amaryl 2 mg tablet RxNorm: 195324 1 Tablet(s) PO QAM 11/11/201204/05 Inactive omeprazole 40 mg capsule,delayed release RxNorm: 016159 1 Capsu le(s) PO BID 08/14/2012 08/08/2013 Inactive Bystolic 5 mg tablet RxNorm: 371218 1 Tablet(s) PO QD 08/14/201205/03 Inactive propranolol 60 mg tablet RxNorm: 450624 Tablet(s) PO TAKE 1 TAB LET TWICE DAILY 08/01/2012 09/01/2012 Inactive Bystolic 5 mg tablet RxNorm: 067140 1 Tablet(s) PO QD 07/21/201207/02 Inactive Bystolic 5 mg tablet RxNorm: 229467 1 Tablet(s) PO QD 07/21/201207/03 Inactive Prilosec 40 mg capsule,delayed release RxNorm: 541698 1 Capsule (s) PO BID 06/24/2012 07/21/2012 Inactive buspirone 10 mg tablet RxNorm: 668308 1 Tablet(s) PO TID 05/08/2012 0 05/23/2016 Inactive Valium 10 mg tablet RxNorm: 043262 1 Tablet(s) PO BID 04/02/201207/03 Inactive Endocet 10 mg-325 mg tablet RxNorm: 1500171 1 Tablet(s) PO QID 03/0607/21/2012 Inactive as needed for severe pain Valium 10 mg tablet RxNorm: 614802 1 Tablet(s) PO BID 02/27/2012 No S top Date Active Endocet 10 mg-325 mg tablet RxNorm: 8779467 1 Tablet(s) PO QID 02/0203/27/2012 Inactive as needed for severe pain Endocet 10 mg-325 mg tablet RxNorm: 2211321 1 Tablet(s) PO QID 01/0302/26/2012 Inactive as needed for severe pain Valium 10 mg tablet RxNorm: 032591 1 Tablet(s) PO BID 01/29/2012 No S top Date Active Protonix 40 mg tablet,delayed release RxNorm: 434510 1 Tablet(s ) PO QD 01/28/2012 07/21/2012 Inactive metformin ER 500 mg tablet,extended release 24 hr RxNorm: 86 0977 1 Tablet(s) PO QD 12/26/2011 07/20/2012 Inactive Trazadone 150 mg Tablet RxNorm: 1 Tablet(s) PO QHS prn sleep 1 04/23/2012 Inactive Endocet 10 mg-325 mg tablet RxNorm: 5494465 1 Tablet(s) PO QID 12/0301/24/2012 Inactive as needed for severe pain Nexium 40 mg capsule,delayed release RxNorm: 704838 1 Capsule(s ) PO QD 12/26/2011 01/27/2012 Inactive Symbicort 160 mcg-4.5 mcg/actuation HFA Aerosol Inhaler RxNo rm: 3829001 2 Puff(s) INH BID 12/04/2011 07/21/2012 Inactive Endocet 10 mg-325 mg tablet RxNorm: 9029342 1 Tablet(s) PO QID 11/0312/25/2011 Inactive as needed for severe pain metformin ER 500 mg tablet,extended release 24 hr RxNorm: 86 0977 1 Tablet(s) PO QD 11/20/2011 12/19/2011 Inactive metformin ER 500 mg tablet,extended release 24 hr RxNorm: 86 0977 1 Tablet(s) PO QD 11/20/2011 11/19/2011 Inactive amitriptyline 100 mg tablet RxNorm: 919306 Tablet(s) PO QHS 1 a nd 1/2 tabs QHS 11/12/2011 11/13/2011 Inactive Valium 10 mg tablet RxNorm: 691572 1 Tablet(s) PO BID 11/09/2011 No S top Date Active Endocet 10 mg-325 mg tablet RxNorm: 2535403 1 Tablet(s) PO QID 10/0211/14/2011 Inactive as needed for severe pain Aricept 10 mg Tab RxNorm: 046409 1 Tablet(s) PO QD 10/05/2011 013 Inactive Valium 10 mg tablet RxNorm: 449564 1 Tablet(s) PO BID 10/05/2011 No S top Date Active Endocet 10 mg-325 mg Tab RxNorm: 0075924 1 Tablet(s) PO QID 012 10/09/2011 Inactive as needed for severe pain Aricept 10 mg Tab RxNorm: 261112 1 Tablet(s) PO QD 08/14/2011 012 Inactive Endocet 10 mg-325 mg Tab RxNorm: 6566001 1 Tablet(s) PO QID 012 08/31/2011 Inactive as needed for severe pain Valium 10 mg Tab RxNorm: 583860 1 Tablet(s) PO BID 08/02/2011 No Stop Date Active propranolol 60 mg tablet RxNorm: 686674 1 Tablet(s) PO BID 07/26/19 12 09/11/2011 Inactive amitriptyline 100 mg tablet RxNorm: 789518 Tablet(s) PO QHS 1 a nd 1/2 tabs QHS 06/20/2011 09/11/2011 Inactive buspirone 10 mg tablet RxNorm: 824155 1 Tablet(s) PO BID 06/18/2011 0 09/15/2011 Inactive propranolol 60 mg Tab RxNorm: 641747 1 Tablet(s) PO BID 06/18/2011 Inactive gabapentin 800 mg Tab RxNorm: 548490 1 Tablet(s) PO BID 06/18/2011 Inactive ropinirole 2 mg tablet RxNorm: 622342 1 Tablet(s) PO QHS 05/29/2011 0 08/26/2011 Inactive trimethoprim 100 mg Tab RxNorm: 351666 1 Tablet(s) PO QHS 05/29/2011 07/21/2012 Inactive Endocet 10 mg-325 mg Tab RxNorm: 1094164 1 Tablet(s) PO QID 012 2011 Inactive as needed for severe pain Valium 10 mg Tab RxNorm: 237423 1 Tablet(s) PO QHS N eed to take med as prescribed. this is a 40 day RX. No early fills. 05/17/2011 05/20/2018 Inactive propranolol 60 mg Tab RxNorm: 760325 1 Tablet(s) PO BID 04/16/2011 Inactive Neurontin 800 mg Tab RxNorm: 565758 1 Tablet(s) PO QHS 04/05/201103/2011 Inactive Endocet 10 mg-325 mg Tab RxNorm: 8922811 1 Tablet(s) PO QID 012 05/02/2011 Inactive as needed for severe pain oxycodone-acetaminophen 10 mg-325 mg tablet RxNorm: 0108691 1 Ta blet(s) PO Q4H 03/28/2011 05/19/2012 Inactive Valium 10 mg Tab RxNorm: 131801 1 Tablet(s) PO QHS 03/28/2011 012 Inactive buspirone 10 mg Tab RxNorm: 304352 1 Tablet(s) PO BID 03/27/201106/02 Inactive propranolol 60 mg Tab RxNorm: 063199 1 Tablet(s) PO BID 03/19/2011 Inactive Klor-Con M20 20 mEq Tab RxNorm: 2023187 1 Tablet(s) PO QD 03/19/2011 07/21/2012 Inactive Aricept 10 mg Tab RxNorm: 903469 1 Tablet(s) PO QD 02/27/2011 012 Inactive propranolol 60 mg Tab RxNorm: 008750 1 Tablet(s) PO BID 02/19/2011 Inactive omeprazole 40 mg capsule,delayed release RxNorm: 631801 1 Capsu le(s) PO BID 01/24/2011 05/23/2011 Inactive clindamycin 300 mg capsule RxNorm: 452232 1 Capsule(s) PO TID 01/2402/02/2011 Inactive propranolol 60 mg Tab RxNorm: 009280 1 Tablet(s) PO BID 01/22/2011 No Stop Date Active nystatin 100,000 unit/g Topical Cream RxNorm: 589573 Applicatio n TOP BID 01/15/2011 01/14/2011 Inactive to rash for 2-4 week s Diflucan 200 mg Tab RxNorm: 020963 1 Tablet(s) PO QD 01/15/201101/28 Inactive buspirone 10 mg Tab RxNorm: 818606 1 Tablet(s) PO BID 01/08/201103/05 Inactive Valium 10 mg Tab RxNorm: 691802 1 Tablet(s) PO QHS 01/05/2011 012 Inactive Diflucan 200 mg Tab RxNorm: 322091 1 Tablet(s) PO QD 01/01/201101/14 Inactive Diflucan 200 mg Tab RxNorm: 733199 1 Tablet(s) PO QD 12/18/201012/31 Inactive Valium 10 mg Tab RxNorm: 659484 1 Tablet(s) PO QHS 12/12/2010 011 Inactive Diflucan 200 mg Tab RxNorm: 126618 1 Tablet(s) PO QD 12/07/201012/18 Inactive Aricept 10 mg Tab RxNorm: 027441 1 Tablet(s) PO QD 11/20/2010 011 Inactive ropinirole 1 mg Tab RxNorm: 847591 1 Tablet(s) PO QHS 11/16/201005/03 Inactive enalapril maleate 5 mg Tab RxNorm: 849146 1 Tablet(s) PO QD 011 05/20/2018 Inactive buspirone 10 mg Tab RxNorm: 088185 1 Tablet(s) PO BID 11/16/201012/02 Inactive Valium 10 mg Tab RxNorm: 807564 1 Tablet(s) PO QHS 11/07/2010 011 Inactive Pyridium 100 mg Tab RxNorm: 0797681 1 Tablet(s) PO TID 11/02/201004/2010 Inactive Macrobid 100 mg Cap RxNorm: 6554700 1 Capsule(s) PO BID 11/02/2010 Inactive buspirone 10 mg Tab RxNorm: 574857 1 Tablet(s) PO QHS 10/18/201005/02 Inactive propranolol 60 mg Tab RxNorm: 692489 1 Tablet(s) PO BID 09/18/2010 Inactive Valium 10 mg Tab RxNorm: 812776 1 Tablet(s) PO QHS 09/05/2010 011 Inactive Aricept 10 mg Tab RxNorm: 428109 1 Tablet(s) PO QD 08/14/2010 011 Inactive Valium 10 mg Tab RxNorm: 660684 1 Tablet(s) PO QHS 06/26/2010 011 Inactive ropinirole 1 mg Tab RxNorm: 508545 1 Tablet(s) PO QHS 06/19/201010/02 Inactive omeprazole 40 mg Cap, delayed release RxNorm: 984946 1 Capsule( s) PO QD 06/07/2010 10/04/2010 Inactive Endocet 10 mg-325 mg Tab RxNorm: 5120549 1 Tablet(s) PO QID as needed for severe pain 06/07/2010 03/07/2011 Inactive Endocet 10 mg-325 mg Tab RxNorm: 8858588 1 Tablet(s) PO QID as needed for severe pain 05/04/2010 06/02/2010 Inactive Valium 10 mg Tab RxNorm: 124092 1 Tablet(s) PO QHS 05/01/2010 011 Inactive propranolol 60 mg Tab RxNorm: 118880 1 Tablet(s) PO BID 04/03/2010 Inactive Valium 10 mg Tab RxNorm: 068540 1 Tablet(s) PO QHS 03/28/2010 011 Inactive omeprazole 40 mg Cap, Delayed Release RxNorm: 008401 1 Capsule( s) PO QD 03/28/2010 06/06/2010 Inactive Endocet 10 mg-325 mg Tab RxNorm: 5737485 1 Tablet(s) PO QID prn ari n 03/27/2010 05/20/2018 Inactive Valium 10 mg Tab RxNorm: 998274 1 Tablet(s) PO QHS 02/20/2010 011 Inactive Diflucan 100 mg Tab RxNorm: 759239 1 Tablet(s) PO BID 01/23/201003/2009 Inactive Diflucan 100 mg Tab RxNorm: 796783 1 Tablet(s) PO BID 01/05/201001/02 Inactive Aricept 10 mg Tab RxNorm: 460531 1 Tablet(s) PO QD 12/01/2009 011 Inactive OxyContin 20 mg 12 hr Tab RxNorm: 8924882 1 Tablet(s) PO BID 200904/05/2010 Inactive oxycodone-acetaminophen 10 mg-325 mg Tab RxNorm: 6597196 1 Table t(s) PO Q4H 11/22/2009 11/26/2009 Inactive Phenergan 25 mg Tab RxNorm: 481251 1 Tablet(s) PO PRN MIGRAINE 11/0303/07/2011 Inactive Demerol 100 mg Tab RxNorm: 450231 1 Tablet(s) PO PRN MIGRAINE 11/2203/07/2011 Inactive Oxycodone-Acetaminophen 10 mg-325 mg Tab RxNorm: 5997185 1 Table t(s) PO Q4H 10/11/2009 10/15/2009 Inactive Percocet 10 mg-325 mg Tab RxNorm: 0441672 1 Tablet(s) PO Q4H 200910/24/2009 Inactive propranolol 60 mg Tab RxNorm: 317586 1 Tablet(s) PO BID 08/29/2009 Inactive Valium 10 mg Tab RxNorm: 739471 1 Tablet(s) PO QHS 08/16/2009 010 Inactive Keflex 500 mg Cap RxNorm: 631907 1 Capsule(s) PO BID 07/25/200907/31 Inactive Hydroxyzine 25 mg Tab RxNorm: 780283 1 Tablet(s) PO TID 07/25/2009 Inactive Prednisone 20 mg Tab RxNorm: 022986 1 Tablet(s) PO BID 07/25/2009 Inactive Demerol 100 mg Tab RxNorm: 775979 1 Tablet(s) PO PRN MIGRAINE 07/25 No Stop Date Active Ropinirole 1 mg Tab RxNorm: 956488 1 Tablet(s) PO HS 07/20/200902/14 Inactive Valium 10 mg Tab RxNorm: 387215 1 Tablet(s) PO QHS 07/18/2009 010 Inactive Endocet 10 mg-325 mg Tab RxNorm: 7527099 1 Tablet(s) PO TID 010 07/07/2009 Inactive Demerol 100 mg Tab RxNorm: 076714 1 Tablet(s) PO PRN MIGRAINE 06/08 No Stop Date Active Ropinirole 1 mg Tab RxNorm: 445178 1 Tablet(s) PO HS 05/16/200907/14 Inactive ipratropium-albuterol 0.5 mg-3 mg(2.5 mg base)/3 mL ne bulization soln RxNorm: 2113631 1 Unit Dose INH Q4H as needed No Start Date Active MagOx 400 mg (241.3 mg magnesium) tablet RxNorm: 033519 1 Table t(s) PO BID No Start Date Active Vitamin B12 1000mcg Tablet RxNorm: 1 Tablet(s) PO QD No Start Date Active Vitamin D3 5,000 unit tablet RxNorm: 712428 1 Tablet(s) PO QD No Star t Date Active Tylenol Arthritis Pain 650 mg tablet,extended release RxNorm : 9089438 1 Tablet(s) PO Q4H No Start Date Active Lotrimin AF 2 % topical powder RxNorm: 578815 1 Application TOP BID No Start Date Active enalapril maleate 5 mg Tab RxNorm: 558233 1 Tablet(s) PO QD No Star t Date 07/20/2012 Inactive Demerol 100 mg Tab RxNorm: 245426 Tablet(s) PO PRN MIGRAINE No Star t Date 06/02/2009 Inactive metformin 500 mg tablet RxNorm: 052446 1 Tablet(s) PO QD No Start D ate 04/05/2013 Inactive Breo Ellipta 100 mcg-25 mcg/dose powder for inhalation RxNor m: 3673131 1 Puff(s) INH BID No Start Date 01/04/2016 Inactive Mag-Oxide 400 mg Tab RxNorm: 873224 1 Tablet(s) PO QD No Start Date 0 07/21/2012 Inactive Cipro 500 mg Tab RxNorm: 687336 1 Tablet(s) PO QD No Start Date 04/05 Inactive Ativan 0.5 mg tablet RxNorm: 433142 1 Tablet(s) PO TID as needed No Start Date 05/06/2019 Inactive melatonin 3 mg tablet RxNorm: 392012 2 Tablet(s) PO QHS No Start Da te 08/19/2018 Inactive buspirone 10 mg Tab RxNorm: 756820 1 Tablet(s) PO QD No Start Date Inactive sucralfate 100 mg/mL Oral Susp RxNorm: 033715 2 Teaspoon(s) PO QID No Start Date 07/21/2012 Inactive hydrocodone 5 mg-acetaminophen 325 mg tablet RxNorm: 054987 1 Tablet(s) PO Q4H as needed No Start Date 08/19/2018 Inactive Amaryl 2 mg tablet RxNorm: 507561 1 Tablet(s) PO BID No Start Date Inactive OxyContin 20 mg 12 hr Tab RxNorm: 4803032 1 Tablet(s) PO BID No Sta rt Date 11/27/2009 Inactive propranolol 40 mg tablet RxNorm: 596673 1 Tablet(s) PO QID No Start Date 01/19/2018 Inactive Trazadone 150 mg Tablet RxNorm: 1-2 Tablet(s) PO QHS prn sleep No Start Date 08/09/2010 Inactive propranolol 60 mg Tab RxNorm: 882692 1/2 Tablet(s) PO BID No Start Date 01/21/2011 Inactive insulin NPH and regular human subcutaneous RxNorm: 7716614 subcu taneous No Start Date 11/20/2018 Inactive Ativan 0.5 mg tablet RxNorm: 559899 1 Tablet(s) PO QID No Start Date 06/18/2016 Inactive Vasotec 5 mg Tab RxNorm: 774652 1 Tablet(s) PO BID No Start Date 06/2011 Inactive Toprol XL 50 mg tablet,extended release RxNorm: 290214 1 Tablet (s) PO BID No Start Date 04/05/2013 Inactive Ativan 0.5 mg tablet RxNorm: 848801 1 Tablet(s) PO TID No Start Date 05/25/2016 Inactive Klor-Con M20 20 mEq Tab RxNorm: 9242070 1 Tablet(s) PO QD No Start Date 03/19/2011 Inactive sumatriptan 100 mg tablet RxNorm: 030561 1 Tablet(s) PO at headache onset--repeat in 2hrs if remains No Start Date 07/21/2012 Inactive propranolol 60 mg Tab RxNorm: 037692 1 Tablet(s) PO BID No Start Da te 08/28/2009 Inactive Cholestyramine Light 4 gram Oral Powder RxNorm: 2185104 1 Unit Dose PO QD in water No Start Date 07/21/2012 Inactive nystatin 100,000 unit/g Topical Powder RxNorm: 069788 Applicati on TOP BID No Start Date 07/21/2012 Inactive vitamin F39-mipwz acid sublingual RxNorm: sublingual No Start Date 07/05/2013 Inactive cyclobenzaprine 5 mg tablet RxNorm: 033269 1/2-1 Tablet (s) PO TID as needed for muscle spasm No Start Date 07/18/2017 Inactive tramadol 50 mg tablet RxNorm: 808682 2 Tablet(s) PO TID as need ed for pain No Start Date 09/01/2014 Inactive aspirin 81 mg Tab RxNorm: 754302 1 Tablet(s) PO QOD No Start Date 04/2013 Inactive Vitamin B12 1000mcg Tablet RxNorm: 1 Tablet(s) PO QD No Start Date 07/18/2017 Inactive cholestyramine (with sugar) 4 gram oral powder RxNorm: 37915 3 1 Unit(s) PO QD as needed No Start Date 05/20/2018 Inactive ProAir HFA 90 mcg/Actuation Aerosol Inhaler RxNorm: 263605 2 Puff(s) INH Q4H prn shortness of breath No Start Date 07/21/2012 Inactive pravastatin 10 mg Tab RxNorm: 712512 1 Tablet(s) PO QD No Start Date 07/21/2012 Inactive gabapentin 800 mg Tab RxNorm: 507536 1 Tablet(s) PO BID No Start Da te 06/03/2011 Inactive Endocet 10 mg-325 mg Tab RxNorm: 7447206 1 Tablet(s) PO TID No Star t Date 06/02/2009 Inactive Naproxen 500 mg Tab RxNorm: 506407 1 Tablet(s) PO BID No Start Date 0 04/05/2010 Inactive Valium 10 mg Tab RxNorm: 302263 1 Tablet(s) PO BID No Start Date 07/04 Inactive enalapril maleate 5 mg Tab RxNorm: 758425 1 Tablet(s) PO QD No Star t Date 11/15/2010 Inactive doxepin 10 mg capsule RxNorm: 2326778 2 Capsule(s) PO QHS No Start Date 09/17/2018 Inactive MS Contin 15 mg Tab RxNorm: 689976 1 Tablet(s) PO BID No Start Date 0 09/18/2010 Inactive buspirone 5 mg tablet RxNorm: 014486 1 Tablet(s) PO TID No Start Da te 12/01/2013 Inactive [place] 3 Fish Oil Cap RxNorm: 1 Capsule(s) PO QD No Start Date 07/03 Inactive enalapril maleate 5 mg Tab RxNorm: 481977 1/2 Tablet(s) PO QD No St art Date 03/07/2011 Inactive Lyrica 75 mg capsule RxNorm: 308549 1 Capsule(s) PO QHS No Start Da te 02/08/2014 Inactive Lopressor 100 mg tablet RxNorm: 379740 1 Tablet(s) PO BID No Start Date 06/08/2018 Inactive Lantus Solostar U-100 Insulin 100 unit/mL (3 mL) subcu taneous pen RxNorm: 247122 45 Unit(s) SQ QAM No Start Date 05/20/2018 Inactive aspirin 81 mg tablet RxNorm: 300676 1 Tablet(s) PO QD No Start Date 0 09/14/2015 Inactive diltiazem CD 240 mg capsule,extended release 24 hr RxNorm: 8 55299 1 Capsule(s) PO QD No Start Date 05/25/2019 Inactive insulin NPH isophane U-100 human subcutaneous RxNorm: 001607 beckwith bcutaneous No Start Date 04/20/2019 Inactive sumatriptan 100 mg tablet RxNorm: 280758 1 Tablet(s) PO at headache onset. May repeat 1 in two hours if headache remains. Max of 2 per 24 hours No Start Date 04/01/2018 Inactive gabapentin 300 mg capsule RxNorm: 866899 1 Capsule(s) PO QHS No Sta rt Date 02/04/2018 Inactive Topamax 25 mg Tab RxNorm: 436252 Oral No Start Date 03/07/2011 In active Senokot-S 8.6 mg-50 mg Tab RxNorm: 9994265 1 Tablet(s) PO QD No Sta rt Date 03/07/2011 Inactive metformin ER 500 mg 24 hr tablet,extended release RxNorm: 18 93917 1 Tablet(s) PO QD No Start Date 05/20/2018 Inactive Symbicort 80 mcg-4.5 mcg/actuation HFA Aerosol Inhaler RxNor m: 4209977 2 Puff(s) INH BID No Start Date 04/05/2013 Inactive metoprolol tartrate 25 mg tablet RxNorm: 116997 1 Tablet(s) PO BID No Start Date 05/20/2019 Inactive propranolol 60 mg Tab RxNorm: 956854 1/2 Tablet(s) PO BID No Start Date 07/21/2012 Inactive metformin ER 500 mg 24 hr tablet,extended release RxNorm: 18 15341 2 Tablet(s) PO QD No Start Date 12/16/2017 Inactive Insulin Syringe 1 mL 29 gauge x 1/2" RxNorm: 2 s yringes daily with insulin Dx: E11.65 No Start Date 10/07/2018 Inactive Amitriptyline 75 mg Tab RxNorm: 280447 1 Tablet(s) PO QHS No Start Date 10/23/2009 Inactive donepezil 10 mg Tab RxNorm: 825063 1 Tablet(s) PO QD No Start Date Inactive Lantus Solostar U-100 Insulin 100 unit/mL (3 mL) subcu taneous pen RxNorm: 898309 36 Unit(s) SQ QAM No Start Date 12/24/2017 Inactive Miacalcin 200 unit/Actuation Nasal [place] Aerosol RxNorm: 261 204 1 [place] NASAL QD Alternate nostrils each day No Start Date 04/05/2010 Inactive Amitriptyline 150 mg Tab RxNorm: 882718 1 Tablet(s) PO QHS No Start Date 01/04/2010 Inactive Bystolic 5 mg tablet RxNorm: 857596 1 Tablet(s) PO QD No Start Date 0 08/13/2012 Inactive Aricept 10 mg Tab RxNorm: 476813 1 Tablet(s) PO QD No Start Date 11/03 Inactive Lantus Solostar U-100 Insulin 100 unit/mL (3 mL) subcu taneous pen RxNorm: 849746 50 Unit(s) SQ QAM No Start Date 08/27/2018 Inactive albuterol sulfate 2.5 mg/3 mL (0.083 %) Neb Solution RxNorm: 064026 1 Unit Dose INH QID as needed No Start Date 08/23/2015 Inactive Symbicort 160 mcg-4.5 mcg/actuation HFA Aerosol Inhaler RxNo rm: 1463322 2 Puff(s) INH BID No Start Date 12/03/2011 Inactive Savella 50 mg Tab RxNorm: 872791 1 Tablet(s) PO BID No Start Date 04/2010 Inactive amitriptyline 100 mg Tab RxNorm: 289225 1 1/2 Tablet(s) PO QHS No S tart Date 06/19/2011 Inactive nystatin 100,000 unit/g Topical Cream RxNorm: 365237 Ap plication TOP BID to rash for 2-4 weeks No Start Date 01/14/2011 Inactive Trelegy Ellipta 100 mcg-62.5 mcg-25 mcg powder for inhalatio n RxNorm: 9357537 1 Puff(s) INH QD No Start Date 12/16/2017 Inactive Lyrica 150 mg capsule RxNorm: 496741 1 Capsule(s) PO QHS No Start D ate 12/04/2015 Inactive sennosides 8.6 mg tablet RxNorm: 843772 1 Tablet(s) PO BID No Start Date 09/07/2018 Inactive metformin ER 500 mg tablet,extended release 24 hr RxNorm: 86 0975 1 Tablet(s) PO QD No Start Date 10/22/2017 Inactive Fish Oil 1,000 mg Cap RxNorm: 1 Capsule(s) PO QD No Start Date 06/2011 Inactive Zyrtec 10 mg Tab RxNorm: 8276853 1 Tablet(s) PO QD No Start Date 07/03 Inactive albuterol sulfate HFA 90 mcg/actuation aerosol inhaler RxNor m: 2287598 2 Puff(s) INH Q4H as needed for cough No Start Date 09/30/2013 Inactive trazodone 150 mg tablet RxNorm: 647696 1 Tablet(s) PO QHS No Start Date 07/21/2012 Inactive Spiriva with HandiHaler 18 mcg & inhalation capsules RxNorm: 196071 1 Capsule(s) INH QD No Start Date 04/05/2013 Inactive Coreg 3.125 mg Tab RxNorm: 561972 1 Tablet(s) PO BID No Start Date Inactive Phenergan 25 mg Tab RxNorm: 162592 Tablet(s) PO PRN MIGRAINE No Sta rt Date 11/21/2009 Inactive Vitamin D 50,000 unit Cap RxNorm: 5937586 1 Capsule(s) PO QW No Sta rt Date 03/07/2011 Inactive Januvia 100 mg tablet RxNorm: 309244 1 Tablet(s) PO QD No Start Date 10/25/2015 Inactive Eliquis 5 mg tablet RxNorm: 5661182 1 Tablet(s) PO BID No Start Date 08/19/2018 Inactive Advair Diskus 500 mcg-50 mcg/Dose for Inhalation RxNorm: 664546 1 INH BID No Start Date 07/21/2012 Inactive Vitamin D3 5,000 unit tablet RxNorm: 314272 1 Tablet(s) PO QD No St art Date 07/18/2017 Inactive Amaryl 2 mg tablet RxNorm: 602736 1 Tablet(s) PO QD No Start Date 06/2015 Inactive Actos 30 mg tablet RxNorm: 131214 1 Tablet(s) PO QD No Start Date Inactive promethazine 25 mg tablet RxNorm: 425902 1 Tablet(s) PO Q4H prn N/V No Start Date 07/21/2012 Inactive ProAir HFA 90 mcg/actuation Aerosol Inhaler RxNorm: 613555 2 Puff(s) INH Q4H prn dyspnea No Start Date 07/21/2012 Inactive Dexilant 60 mg Capsule RxNorm: 586900 1 Capsule(s) PO QD No Start D ate 01/27/2012 Inactive Lantus Solostar U-100 Insulin 100 unit/mL (3 mL) subcu taneous pen RxNorm: 850368 38 Unit(s) SQ QAM No Start Date 05/20/2018 Inactive Valium 10 mg Tab RxNorm: 814491 1 Tablet(s) PO QHS AND PRN No Start Date 10/24/2009 Inactive ZOFRAN ODT 8 mg disintegrating tablet RxNorm: 702509 1 Tablet(s ) PO Q6H No Start [...] Date S ervice Location MICROALBUMIN URINE RANDOM 06667 MICRL MG/L 14.9 MG/L Unknown MICROALBUMIN URINE RANDOM 21861 XM.ALB/CRE 6.1 MG/GCR Unknown MICROALBUMIN URINE RANDOM 19652 CREAT MG/D 243 MG/DL Unknown MICROALBUMIN URINE RANDOM 35485 CRE/100 2.43 G/L 03/05 Unknown PROTEIN/CREAT URINE WITH RATIO 24117|01076 PROT R U 14 MG/D L 04/01/2014 Unknown PROTEIN/CREAT URINE WITH RATIO 55263|10822 CREAT R U 254 MG/ DL 04/01/2014 Unknown PROTEIN/CREAT URINE WITH RATIO 18745|45246 XRATIO P/C 55 MG/ G 04/01/2014 Unknown URINALYSIS 58301 PROTEIN UR NEG 04/28/2010 Unknown URINALYSIS 29941 HEMGLBN UR NEG 04/28/2010 Unknown URINALYSIS 84146 GLUCOSE UR NEG 04/28/2010 Unknown URINALYSIS 78668 KETONES UR NEG 04/28/2010 Unknown URINALYSIS 51854 PH U 5.5 04/28/2010 Unknown URINALYSIS 01184 SP GR U 1.025 04/28/2010 Unknown URINALYSIS 21173 BILRUBN UR NEG 04/28/2010 Unknown URINALYSIS 76544 LEUKO UR 2+ 04/28/2010 Unknown URINALYSIS 62432 NITRITE UR NEG 04/28/2010 Unknown MICR CUL? [id number] WBC/HPF 6-10 04/28/2010 Unknown MICR CUL? [id number] RBC/HPF 0-5 04/28/2010 Unknown MICR CUL? [id number] HYAL CAST 16-25 04/28/2010 Unknown MICR CUL? [id number] SP TO YOLIE? NO 04/28/2010 Unknown MICR CUL? [id number] APPEAR UR NORMAL 04/28/2010 Unknown MICR CUL? [id number] SQ EPI/LPF FEW 04/28/2010 Unknown Procedures Procedure Codes Date URINALYSIS NONAUTO W/O SCOPE CPT-4: 06347 04/16/2019 URINE CULTURE/ COLONY COUNT CPT-4: 11362 04/16/2019 CEFTRIAXONE SODIUM INJECTION CPT-4: J0696 04/16/2019 THER/PROPH/DIAG INJ SC/IM CPT-4: 69643 04/16/2019 DRAIN/INJECT JOINT/BURSA CPT-4: 75487 01/22/2019 TRIAMCINOLONE ACET INJ NOS CPT-4: J3301 01/22/2019 DEXAMETHASONE SODIUM PHOS CPT-4: J1100 01/22/2019 URINE CULTURE/ COLONY COUNT CPT-4: 80637 01/07/2019 URINALYSIS NONAUTO W/O SCOPE CPT-4: 28971 01/07/2019 CEFTRIAXONE SODIUM INJECTION CPT-4: J0696 01/07/2019 THER/PROPH/DIAG INJ SC/IM CPT-4: 33975 01/07/2019 FLU VACC PRSV FREE INC ANTIG 65 AND OLDER CPT-4: 03531 12/24/2018 FLU VACC PRSV FREE INC ANTIG 65 AND OLDER CPT-4: 81522 12/24/2018 ADMIN INFLUENZA VIRUS VAC CPT-4: G0008 12/24/2018 THER/PROPH/DIAG INJ SC/IM CPT-4: 68240 11/04/2018 KETOROLAC TROMETHAMINE INJ CPT-4: J1885 11/04/2018 PROMETHAZINE HCL INJECTION CPT-4: J2550 11/04/2018 PPPS, subseq visit CPT-4: G0439 09/18/2018 THER/PROPH/DIAG INJ SC/IM CPT-4: 08148 04/01/2018 KETOROLAC TROMETHAMINE INJ CPT-4: J1885 04/01/2018 PROMETHAZINE HCL INJECTION CPT-4: J2550 04/01/2018 URINE CULTURE/ COLONY COUNT CPT-4: 72059 03/17/2018 URINALYSIS NONAUTO W/O SCOPE CPT-4: 35095 03/17/2018 FLU VACC PRSV FREE INC ANTIG 65 AND OLDER CPT-4: 57652 12/17/2017 PNEUMOCOCCAL VACC 23 RANDALL IM CPT-4: 87882 12/17/2017 ADMIN INFLUENZA VIRUS VAC CPT-4: G0008 12/17/2017 ADMIN PNEUMOCOCCAL VACCINE CPT-4: G0009 12/17/2017 PPPS, subseq visit CPT-4: G0439 09/17/2017 THER/PROPH/DIAG INJ SC/IM CPT-4: 04164 08/26/2017 KETOROLAC TROMETHAMINE INJ CPT-4: J1885 08/26/2017 PROMETHAZINE HCL INJECTION CPT-4: J2550 08/26/2017 URINALYSIS NONAUTO W/O SCOPE CPT-4: 43587 07/19/2017 URINE CULTURE/ COLONY COUNT CPT-4: 95878 07/19/2017 CEFTRIAXONE SODIUM INJECTION CPT-4: J0696 07/19/2017 THER/PROPH/DIAG INJ SC/IM CPT-4: 96014 07/19/2017 THER/PROPH/DIAG INJ SC/IM CPT-4: 69400 07/19/2017 TRIAMCINOLONE ACET INJ NOS CPT-4: J3301 07/19/2017 PRESCRIP TRANSMIT VIA ERX SY CPT-4: G8553 05/07/2017 PRESCRIP TRANSMIT VIA ERX SY CPT-4: G8553 02/22/2017 PRESCRIP TRANSMIT VIA ERX SY CPT-4: G8553 01/23/2017 FLU VACC PRSV FREE INC ANTIG 65 AND OLDER CPT-4: 53275 12/20/2016 PNEUMOCOCCAL VACC 13 RANDALL IM CPT-4: 54527 12/20/2016 ADMIN INFLUENZA VIRUS VAC CPT-4: G0008 12/20/2016 ADMIN PNEUMOCOCCAL VACCINE CPT-4: G0009 12/20/2016 URINALYSIS NONAUTO W/O SCOPE CPT-4: 77739 10/08/2016 URINE CULTURE/ COLONY COUNT CPT-4: 32436 10/08/2016 PRESCRIP TRANSMIT VIA ERX SY CPT-4: G8553 10/08/2016 PRESCRIP TRANSMIT VIA ERX SY CPT-4: G8553 09/19/2016 PRESCRIP TRANSMIT VIA ERX SY CPT-4: G8553 08/20/2016 PRESCRIP TRANSMIT VIA ERX SY CPT-4: G8553 02/29/2016 KETOROLAC TROMETHAMINE INJ CPT-4: J1885 02/02/2016 THER/PROPH/DIAG INJ SC/IM CPT-4: 58385 02/02/2016 PROMETHAZINE HCL INJECTION CPT-4: J2550 02/02/2016 PRESCRIP TRANSMIT VIA ERX SY CPT-4: G8553 02/02/2016 FLU VACC PRSV FREE INC ANTIG 65 AND OLDER CPT-4: 65855 01/05/2016 PPPS, subseq visit CPT-4: G0439 01/05/2016 ADMIN INFLUENZA VIRUS VAC CPT-4: G0008 01/05/2016 URINE CULTURE/ COLONY COUNT CPT-4: 15343 12/05/2015 URINALYSIS NONAUTO W/O SCOPE CPT-4: 83603 12/05/2015 PRESCRIP TRANSMIT VIA ERX SY CPT-4: G8553 12/05/2015 PRESCRIP TRANSMIT VIA ERX SY CPT-4: G8553 10/26/2015 URINALYSIS NONAUTO W/O SCOPE CPT-4: 66032 10/05/2015 URINE CULTURE/ COLONY COUNT CPT-4: 05335 10/05/2015 PRESCRIP TRANSMIT VIA ERX SY CPT-4: G8553 10/05/2015 SERVICE REQUIRED FOR PMD CPT-4: G0372 09/15/2015 PRESCRIP TRANSMIT VIA ERX SY CPT-4: G8553 09/15/2015 SPECIAL REPORTS OR FORMS CPT-4: 46565 08/25/2015 PRESCRIP TRANSMIT VIA ERX SY CPT-4: G8553 07/05/2015 URINALYSIS NONAUTO W/O SCOPE CPT-4: 76657 03/30/2015 ASSAY, GLUCOSE, BLOOD QUANT CPT-4: 90251 03/30/2015 URINE CULTURE/ COLONY COUNT CPT-4: 71279 03/30/2015 PRESCRIP TRANSMIT VIA ERX SY CPT-4: G8553 03/30/2015 PRESCRIP TRANSMIT VIA ERX SY CPT-4: G8553 02/03/2015 FLU VACC PRSV FREE INC ANTIG 65 AND OLDER CPT-4: 72105 12/29/2014 ADMIN INFLUENZA VIRUS VAC CPT-4: G0008 12/29/2014 PRESCRIP TRANSMIT VIA ERX SY CPT-4: G8553 12/29/2014 PRESCRIP TRANSMIT VIA ERX SY CPT-4: G8553 09/02/2014 PROTEIN/CREAT URINE WITH RATIO CPT-4: 25313|00828 5 MICROALBUMIN QUANTITATIVE CPT-4: 37535 04/01/2014 PRESCRIP TRANSMIT VIA ERX SY CPT-4: G8553 03/16/2014 PRESCRIP TRANSMIT VIA ERX SY CPT-4: G8553 03/09/2014 THER/PROPH/DIAG INJ SC/IM CPT-4: 99646 03/01/2014 TRIAMCINOLONE ACET INJ NOS CPT-4: J3301 03/01/2014 PRESCRIP TRANSMIT VIA ERX SY CPT-4: G8553 02/09/2014 URINE CULTURE/ COLONY COUNT CPT-4: 22753 10/30/2013 URINALYSIS NONAUTO W/O SCOPE CPT-4: 00123 10/21/2013 URINE CULTURE/ COLONY COUNT CPT-4: 68579 10/21/2013 DESTRUCT PREMALG LESION (Cryosurgery) CPT-4: 00878 PRESCRIP TRANSMIT VIA ERX SY CPT-4: G8553 10/05/2013 URINALYSIS NONAUTO W/O SCOPE CPT-4: 85660 08/04/2013 URINE CULTURE/ COLONY COUNT CPT-4: 70144 08/04/2013 PRESCRIP TRANSMIT VIA ERX SY CPT-4: G8553 08/04/2013 THER/PROPH/DIAG INJ SC/IM CPT-4: 11917 07/13/2013 TRIAMCINOLONE ACET INJ NOS CPT-4: J3301 07/13/2013 PRESCRIP TRANSMIT VIA ERX SY CPT-4: G8553 05/27/2013 URINALYSIS NONAUTO W/O SCOPE CPT-4: 44247 05/25/2013 URINE CULTURE/ COLONY COUNT CPT-4: 48739 05/25/2013 THER/PROPH/DIAG INJ SC/IM CPT-4: 36606 05/04/2013 VITAMIN B12 INJECTION CPT-4: J3420 05/04/2013 THER/PROPH/DIAG INJ SC/IM CPT-4: 97177 04/17/2013 VITAMIN B12 INJECTION CPT-4: J3420 04/17/2013 THER/PROPH/DIAG INJ SC/IM CPT-4: 59913 04/17/2013 METHYLPREDNISOLONE 40 MG INJ CPT-4: J1030 04/17/2013 TRIAMCINOLONE ACET INJ NOS CPT-4: J3301 04/17/2013 URINALYSIS NONAUTO W/O SCOPE CPT-4: 05137 04/06/2013 URINE CULTURE/ COLONY COUNT CPT-4: 76550 04/06/2013 PRESCRIP TRANSMIT VIA ERX SY CPT-4: G8553 04/06/2013 KETOROLAC TROMETHAMINE INJ CPT-4: J1885 06/25/2012 PROMETHAZINE HCL INJECTION CPT-4: J2550 06/25/2012 THER/PROPH/DIAG INJ SC/IM CPT-4: 90191 06/25/2012 THER/PROPH/DIAG INJ SC/IM CPT-4: 42059 06/24/2012 METHYLPREDNISOLONE 40 MG INJ CPT-4: J1030 06/24/2012 TRIAMCINOLONE ACET INJ NOS CPT-4: J3301 06/24/2012 URINE CULTURE/ COLONY COUNT CPT-4: 97912 06/24/2012 THER/PROPH/DIAG INJ SC/IM CPT-4: 86343 05/20/2012 KETOROLAC TROMETHAMINE INJ CPT-4: J1885 05/20/2012 THER/PROPH/DIAG INJ SC/IM CPT-4: 41793 05/20/2012 PROMETHAZINE HCL INJECTION CPT-4: J2550 05/20/2012 DRAIN/INJECT JOINT/BURSA CPT-4: 08669 02/13/2012 METHYLPREDNISOLONE 40 MG INJ CPT-4: J1030 02/13/2012 TRIAMCINOLONE ACET INJ NOS CPT-4: J3301 02/13/2012 THER/PROPH/DIAG INJ SC/IM CPT-4: 45451 11/14/2011 METHYLPREDNISOLONE 40 MG INJ CPT-4: J1030 11/14/2011 TRIAMCINOLONE ACET INJ NOS CPT-4: J3301 11/14/2011 THER/PROPH/DIAG INJ SC/IM CPT-4: 64151 09/12/2011 KETOROLAC TROMETHAMINE INJ CPT-4: J1885 09/12/2011 THER/PROPH/DIAG INJ SC/IM CPT-4: 00161 08/09/2011 METHYLPREDNISOLONE 40 MG INJ CPT-4: J1030 08/09/2011 TRIAMCINOLONE ACET INJ NOS CPT-4: J3301 08/09/2011 URINE CULTURE/ COLONY COUNT CPT-4: 83219 07/03/2011 URINE CULTURE/ COLONY COUNT CPT-4: 43523 06/04/2011 THER/PROPH/DIAG INJ SC/IM CPT-4: 60654 05/03/2011 METHYLPREDNISOLONE 40 MG INJ CPT-4: J1030 05/03/2011 TRIAMCINOLONE ACET INJ NOS CPT-4: J3301 05/03/2011 URINALYSIS NONAUTO W/O SCOPE CPT-4: 85560 01/24/2011 URINE CULTURE/ COLONY COUNT CPT-4: 17586 01/24/2011 FLUZONE, 5ML (Medicare) CPT-4: Q2038 01/02/2011 ADMIN INFLUENZA VIRUS VAC CPT-4: G0008 01/02/2011 ASSAY, GLUCOSE, BLOOD QUANT CPT-4: 67999 12/07/2010 URINE CULTURE/ COLONY COUNT CPT-4: 11700 11/02/2010 THER/PROPH/DIAG INJ SC/IM CPT-4: 57187 10/18/2010 METHYLPREDNISOLONE 40 MG INJ CPT-4: J1030 10/18/2010 TRIAMCINOLONE ACET INJ NOS CPT-4: J3301 10/18/2010 TRIAMCINOLONE ACET INJ NOS CPT-4: J3301 05/11/2010 METHYLPREDNISOLONE 40 MG INJ CPT-4: J1030 05/11/2010 THER/PROPH/DIAG INJ SC/IM CPT-4: 97187 05/11/2010 TRIAMCINOLONE ACET INJ NOS CPT-4: J3301 02/09/2010 METHYLPREDNISOLONE 40 MG INJ CPT-4: J1030 02/09/2010 THER/PROPH/DIAG INJ SC/IM CPT-4: 15294 02/09/2010 MD SERVICE REQUIRED FOR PMD CPT-4: G0372 02/09/2010 FLU VACCINE 3 YRS & > IM UP 64 CPT-4: 93575 0 PNEUMOCOCCAL VACC 23 RANDALL IM CPT-4: 35285 12/07/2009 ADMIN INFLUENZA VIRUS VAC CPT-4: G0008 12/07/2009 ADMIN PNEUMOCOCCAL VACCINE CPT-4: G0009 12/07/2009 TRIAMCINOLONE ACET INJ NOS CPT-4: J3301 05/26/2009 THER/PROPH/DIAG INJ SC/IM CPT-4: 35509 05/26/2009 METHYLPREDNISOLONE 80 MG INJ CPT-4: J1040 05/26/2009 Vital Signs Date Vital 08/10/2019 Blood Pressure 1: 126/67 Code: 8480-6 [...] 1: 114/72 Code: 8480-6 BMI: 37.8 Code: 58341-1 Heart Rate 1: 72 bpm Height: 5'3" [...] 1: 106/68 Code: 8480-6 BMI: 35.7 Code: 53049-4 Heart Rate 1: 72 bpm Height: 5'4" Respiratory Rate: 20 bpm SpO2: 98% Tempera ture: 36.7 (C) / 98.0 (F) Weight: 208 lbs 04/16/2018 Blood Pressure 1: 132/82 Code: 8480-6 BMI: 37.9 Code: 32699-5 Heart Rate 1: 72 bpm Height: 5'4" Respiratory Rate: 20 bpm SpO2: 96% Tempera ture: 37.1 (C) / 98.8 (F) Weight: 221 lbs 04/01/2018 Blood Pressure 1: 150/90 Code: 8480-6 Heart Rate 1: 72 bpm Respiratory Rate: 22 bpm SpO2: 95% Temperature: 36.4 (C) / 97.6 (F) We ight: 216 lbs 03/06/2018 Blood Pressure 1: 126/78 Code: 8480-6 BMI: 37.4 Code: 40689-6 Heart Rate 1: 68 bpm Height: 5'4" [...] ight: 222 lbs 12/25/2017 BMI: 37.8 Code: 01923-6 Heart Rate 1: 76 bpm Height: 5 '4" Respiratory Rate: 20 bpm SpO2: 96% Temperature: 37.3 (C) / 99.2 (F) Weight: 220 lbs 12/17/2017 Blood Pressure 1: 132/78 Code: 8480-6 BMI: 37.2 Code: 66130-7 Heart Rate 1: 88 bpm Height: 5'4" Respiratory Rate: 20 bpm SpO2: 96% Tempera ture: 37.3 (C) / 99.2 (F) Weight: 217 lbs 10/30/2017 Blood Pressure 1: 114/68 Code: 8480-6 BMI: 36.4 Code: 56150-8 Heart Rate 1: 72 bpm Height: 5'4" Respiratory Rate: 22 bpm SpO2: 96% Tempera ture: 36.8 (C) / 98.2 (F) Weight: 212 lbs 10/23/2017 Blood Pressure 1: 124/78 Code: 8480-6 Heart Rate 1: 72 bpm Respiratory Rate: 24 bpm SpO2: 94% Temperature: 36.6 (C) / 97.9 (F) We ight: 212 lbs 09/17/2017 Blood Pressure 1: 128/82 Code: 8480-6 BMI: 37.4 Code: 09489-1 Heart Rate 1: 72 bpm Height: 5'4" Respiratory Rate: 20 bpm SpO2: 96% Tempera ture: 37.0 (C) / 98.6 (F) Weight: 218 lbs 07/19/2017 Blood Pressure 1: 136/84 Code: 8480-6 BMI: 36.6 Code: 99240-5 Heart Rate 1: 88 bpm Height: 5'4" Respiratory Rate: 20 bpm SpO2: 97% Tempera ture: 36.7 (C) / 98.0 (F) Weight: 213 lbs 05/29/2017 Blood Pressure 1: 136/82 Code: 8480-6 BMI: 36.7 Code: 23053-4 Heart Rate 1: 72 bpm Height: 5'4" Respiratory Rate: 20 bpm SpO2: 97% Tempera ture: 36.9 (C) / 98.4 (F) Weight: 214 lbs 05/07/2017 Blood Pressure 1: 122/80 Code: 8480-6 BMI: 37.1 Code: 53830-8 Heart Rate 1: 80 bpm Height: 5'4" Respiratory Rate: 24 bpm SpO2: 96% Tempera ture: 36.1 (C) / 97.0 (F) Weight: 216 lbs 03/18/2017 BMI: 36.7 Code: 17941-8 Heart Rate 1: 80 bpm Height: 5 '4" Respiratory Rate: 22 bpm SpO2: 95% Temperature: 36.9 (C) / 98.4 (F) Weight: 214 lbs 02/27/2017 Blood Pressure 1: 146/94 Code: 8480-6 BMI: 36.6 Code: 43057-4 Heart Rate 1: 76 bpm Height: 5'4" Respiratory Rate: 22 bpm SpO2: 97% Tempera ture: 36.6 (C) / 97.9 (F) Weight: 213 lbs 02/22/2017 Blood Pressure 1: 126/90 Code: 8480-6 BMI: 36.4 Code: 08142-5 Heart Rate 1: 84 bpm Height: 5'4" Respiratory Rate: 22 bpm SpO2: 95% Tempera ture: 36.9 (C) / 98.4 (F) Weight: 212 lbs 01/23/2017 Blood Pressure 1: 146/82 Code: 8480-6 BMI: 37.6 Code: 26584-6 Heart Rate 1: 96 bpm Height: 5'4" Respiratory Rate: 20 bpm SpO2: 96% Tempera ture: 36.9 (C) / 98.4 (F) Weight: 219 lbs 12/20/2016 Blood Pressure 1: 126/70 Code: 8480-6 BMI: 37.2 Code: 51734-8 Heart Rate 1: 76 bpm Height: 5'4" Respiratory Rate: 22 bpm SpO2: 95% Tempera ture: 36.6 (C) / 97.8 (F) Weight: 217 lbs 10/08/2016 Blood Pressure 1: 128/82 Code: 8480-6 BMI: 36.9 Code: 87797-8 Heart Rate 1: 76 bpm Height: 5'4" Respiratory Rate: 20 bpm SpO2: 95% Tempera ture: 37.0 (C) / 98.6 (F) Weight: 215 lbs 09/19/2016 Blood Pressure 1: 144/78 Code: 8480-6 BMI: 37.8 Code: 67448-3 Heart Rate 1: 76 bpm Height: 5'4" Respiratory Rate: 22 bpm SpO2: 95% Tempera ture: 37.0 (C) / 98.6 (F) Weight: 220 lbs 08/20/2016 Blood Pressure 1: 140/86 Code: 8480-6 BMI: 37.4 Code: 32095-1 Heart Rate 1: 80 bpm Height: 5'4" Respiratory Rate: 20 bpm SpO2: 95% Tempera ture: 36.9 (C) / 98.4 (F) Weight: 218 lbs 06/19/2016 Blood Pressure 1: 124/78 Code: 8480-6 BMI: 37.8 Code: 33586-1 Heart Rate 1: 74 bpm Height: 5'4" Respiratory Rate: 24 bpm SpO2: 96% Tempera ture: 36.9 (C) / 98.4 (F) Weight: 220 lbs 06/04/2016 Blood Pressure 1: 124/78 Code: 8480-6 BMI: 38.8 Code: 50742-3 Heart Rate 1: 72 bpm Height: 5'4" Respiratory Rate: 24 bpm SpO2: 95% Tempera ture: 36.8 (C) / 98.2 (F) Weight: 226 lbs 05/02/2016 Blood Pressure 1: 136/90 Code: 8480-6 BMI: 37.6 Code: 98076-6 Heart Rate 1: 72 bpm Height: 5'4" Respiratory Rate: 24 bpm SpO2: 96% Tempera ture: 36.9 (C) / 98.4 (F) Weight: 219 lbs 04/03/2016 Blood Pressure 1: 126/78 Code: 8480-6 BMI: 38.1 Code: 93853-0 Heart Rate 1: 72 bpm Height: 5'4" Respiratory Rate: 22 bpm SpO2: 94% Tempera ture: 36.9 (C) / 98.4 (F) Weight: 222 lbs 02/29/2016 Blood Pressure 1: 132/78 Code: 8480-6 Heart Rate 1: 78 bpm Height: Respiratory Rate: 24 bpm SpO2: 95% Temperature: 36.4 (C) / 97.6 (F) We ight: 02/02/2016 Blood Pressure 1: 124/78 Code: 8480-6 BMI: 37.6 Code: 31567-7 Heart Rate 1: 76 bpm Height: 5'4" Respiratory Rate: 20 bpm SpO2: 95% Tempera ture: 36.8 (C) / 98.2 (F) Weight: 219 lbs 01/05/2016 Blood Pressure 1: 126/70 Code: 8480-6 BMI: 37.1 Code: 44299-8 Heart Rate 1: 76 bpm Height: 5'4" Respiratory Rate: 20 bpm Temperature: 36 .6 (C) / 97.8 (F) Weight: 216 lbs 12/05/2015 Blood Pressure 1: 126/72 Code: 8480-6 BMI: 36.9 Code: 20034-3 Heart Rate 1: 92 bpm Height: 5'4" Respiratory Rate: 20 bpm Temperature: 36 .7 (C) / 98.1 (F) Weight: 215 lbs 10/26/2015 Blood Pressure 1: 142/80 Code: 8480-6 BMI: 36.4 Code: 71426-1 Heart Rate 1: 82 bpm Height: 5'4" Respiratory Rate: 24 bpm SpO2: 92% Tempera ture: 35.9 (C) / 96.7 (F) Weight: 212 lbs 10/05/2015 Blood Pressure 1: 136/82 Code: 8480-6 Heart Rate 1: 80 bpm Respiratory Rate: 18 bpm SpO2: 98% Temperature: 35.7 (C) / 96.3 (F) We ight: 214 lbs 09/15/2015 Blood Pressure 1: 116/80 Code: 8480-6 BMI: 34.6 Code: 04921-1 Heart Rate 1: 76 bpm Height: 5'6" Respiratory Rate: 20 bpm Temperature: 36 .6 (C) / 97.9 (F) Weight: 211 lbs 08/24/2015 Blood Pressure 1: 124/80 Code: 8480-6 BMI: 34.1 Code: 65439-5 Heart Rate 1: 68 bpm Height: 5'6" Respiratory Rate: 20 bpm Temperature: 36 .8 (C) / 98.3 (F) Weight: 208 lbs 07/05/2015 Blood Pressure 1: 114/78 Code: 8480-6 BMI: 33.9 Code: 04341-4 Heart Rate 1: 80 bpm Height: 5'6" Respiratory Rate: 20 bpm Temperature: 36 .6 (C) / 97.9 (F) Weight: 207 lbs 06/06/2015 Blood Pressure 1: 122/78 Code: 8480-6 BMI: 34.1 Code: 10708-2 Heart Rate 1: 76 bpm Height: 5'6" Respiratory Rate: 24 bpm SpO2: 96% Tempera ture: 36.4 (C) / 97.6 (F) Weight: 208 lbs 05/23/2015 Blood Pressure 1: 124/78 Code: 8480-6 Heart Rate 1: 76 bpm Respiratory Rate: 24 bpm SpO2: 93% Temperature: 36.8 (C) / 98.2 (F) We ight: 212 lbs 05/05/2015 Blood Pressure 1: 136/80 Code: 8480-6 BMI: 35.4 Code: 81789-4 Heart Rate 1: 76 bpm Height: 5'6" Respiratory Rate: 28 bpm Temperature: 37 .0 (C) / 98.6 (F) Weight: 216 lbs 03/30/2015 Blood Pressure 1: 132/86 Code: 8480-6 BMI: 35.2 Code: 11635-2 Heart Rate 1: 84 bpm Height: 5'6" Respiratory Rate: 24 bpm Temperature: 36 .7 (C) / 98.0 (F) Weight: 215 lbs 02/03/2015 Blood Pressure 1: 122/74 Code: 8480-6 BMI: 35.7 Code: 66495-3 Heart Rate 1: 84 bpm Height: 5'6" Respiratory Rate: 20 bpm Temperature: 36 .9 (C) / 98.5 (F) Weight: 218 lbs 12/29/2014 Blood Pressure 1: 132/80 Code: 8480-6 BMI: 35.1 Code: 04602-5 Heart Rate 1: 80 bpm Height: 5'6" Respiratory Rate: 20 bpm Temperature: 36 .6 (C) / 97.8 (F) Weight: 214 lbs 09/02/2014 Blood Pressure 1: 128/92 Code: 8480-6 BMI: 34.7 Code: 62754-3 Heart Rate 1: 84 bpm Height: 5'6" Respiratory Rate: 26 bpm Temperature: 36 .8 (C) / 98.2 (F) Weight: 212 lbs 08/25/2014 Blood Pressure 1: 124/80 Code: 8480-6 BMI: 34.7 Code: 18455-8 Heart Rate 1: 78 bpm Height: 5'6" Respiratory Rate: 22 bpm SpO2: 97% Tempera ture: 36.6 (C) / 97.8 (F) Weight: 212 lbs 04/01/2014 Blood Pressure 1: 142/84 Code: 8480-6 BMI: 34.4 Code: 43806-7 Heart Rate 1: 74 bpm Height: 5'5" Respiratory Rate: 20 bpm Temperature: 36 .4 (C) / 97.6 (F) Weight: 207 lbs 03/16/2014 Blood Pressure 1: 142/90 Code: 8480-6 BMI: 34.6 Code: 53855-5 Heart Rate 1: 76 bpm Height: 5'5" Respiratory Rate: 24 bpm Temperature: 36 .5 (C) / 97.7 (F) Weight: 208 lbs 03/09/2014 Blood Pressure 1: 116/70 Code: 8480-6 BMI: 35.3 Code: 10197-1 Heart Rate 1: 72 bpm Height: 5'5" [...] 1: 128/86 Code: 8480-6 BMI: 34.3 Code: 40920-0 Heart Rate 1: 84 bpm Height: 5'5" Respiratory Rate: 20 bpm Temperature: 36 .7 (C) / 98.0 (F) Weight: 206 lbs 12/23/2013 Blood Pressure 1: 122/70 Code: 8480-6 BMI: 34.3 Code: 82345-1 Heart Rate 1: 68 bpm Height: 5'5" Respiratory Rate: 20 bpm Temperature: 36 .8 (C) / 98.2 (F) Weight: 206 lbs 10/05/2013 Blood Pressure 1: 118/76 Code: 8480-6 BMI: 34.1 Code: 48273-5 Heart Rate 1: 68 bpm Height: 5'5" Respiratory Rate: 20 bpm SpO2: 98% Tempera ture: 36.6 (C) / 97.9 (F) Weight: 205 lbs 08/04/2013 Blood Pressure 1: 126/82 Code: 8480-6 BMI: 33.3 Code: 99080-7 Heart Rate 1: 76 bpm Height: 5'5" Respiratory Rate: 20 bpm Temperature: 36 .8 (C) / 98.2 (F) Weight: 200 lbs 07/03/2013 Blood Pressure 1: 124/82 Code: 8480-6 BMI: 33.3 Code: 35564-7 Heart Rate 1: 72 bpm Height: 5'5" Respiratory Rate: 22 bpm Temperature: 36 .1 (C) / 97.0 (F) Weight: 200 lbs 05/27/2013 Blood Pressure 1: 126/82 Code: 8480-6 Heart Rate 1: 74 bpm Respiratory Rate: 20 bpm Temperature: 36.0 (C) / 96.8 (F) Weight: 199 lbs 04/06/2013 Blood Pressure 1: 118/80 Code: 8480-6 BMI: 35.2 Code: 12117-8 Heart Rate 1: 80 bpm Height: 5'4" Respiratory Rate: 20 bpm Temperature: 37 .4 (C) / 99.3 (F) Weight: 205 lbs 11/10/2012 Blood Pressure 1: 128/82 Code: 8480-6 Heart Rate 1: 84 bpm Respiratory Rate: 20 bpm Temperature: 36.7 (C) / 98.0 (F) Weight: 199 lbs 09/02/2012 Blood Pressure 1: 11682 Code: 8480-6 BMI: 34.2 Code: 12735-0 Heart Rate 1: 88 bpm Height: 5'4" Respiratory Rate: 22 bpm Temperature: 36 .6 (C) / 97.8 (F) Weight: 199 lbs 08/04/2012 Blood Pressure 1: 128/74 Code: 8480-6 BMI: 34.0 Code: 63288-7 Heart Rate 1: 92 bpm Height: 5'4" Respiratory Rate: 20 bpm Temperature: 36 .4 (C) / 97.5 (F) Weight: 198 lbs 07/21/2012 Blood Pressure 1: 124 Code: 8480-6 Heart Rate 1: 116 bpm Respiratory Rate: 24 bpm Temperature: 36.8 (C) / 98.2 (F) 07/02/2012 Blood Pressure 1: 116 Code: 8480-6 BMI: 33.6 Code: 08913-8 Heart Rate 1: 76 bpm Height: 5'4" Respiratory Rate: 20 bpm Temperature: 36 .8 (C) / 98.3 (F) Weight: 196 lbs 06/24/2012 Blood Pressure 1: 124/80 Code: 8480-6 BMI: 34.3 Code: 42152-9 Heart Rate 1: 72 bpm Height: 5'4" SpO2: 96% Temperature: 36.3 (C) / 97.3 (F) Weight: 200 lbs 05/20/2012 Blood Pressure 1: 11688 Code: 8480-6 BMI: 33.8 Code: 54255-1 Heart Rate 1: 80 bpm Height: 5'4" Respiratory Rate: 22 bpm Temperature: 36 .9 (C) / 98.4 (F) Weight: 197 lbs 05/08/2012 Blood Pressure 1: 128/86 Code: 8480-6 BMI: 33.8 Code: 96171-7 Heart Rate 1: 76 bpm Height: 5'4" Respiratory Rate: 26 bpm SpO2: 95% Tempera ture: 36.1 (C) / 97.0 (F) Weight: 197 lbs 04/22/2012 Blood Pressure 1: 106/64 Code: 8480-6 BMI: 33.8 Code: 36388-3 Heart Rate 1: 70 bpm Height: 5'4" Temperature: 36.1 (C) / 97.0 (F) Weight: 197 lbs 02/13/2012 Blood Pressure 1: 126/82 Code: 8480-6 BMI: 34.7 Code: 00810-1 Heart Rate 1: 64 bpm Height: 5'4" Respiratory Rate: 20 bpm Temperature: 36 .6 (C) / 97.8 (F) Weight: 202 lbs 01/28/2012 Blood Pressure 1: 116/80 Code: 8480-6 BMI: 34.7 Code: 77090-9 Heart Rate 1: 76 bpm Height: 5'4" Respiratory Rate: 20 bpm Temperature: 36 .8 (C) / 98.3 (F) Weight: 202 lbs 12/26/2011 Blood Pressure 1: 132/82 Code: 8480-6 BMI: 36.0 Code: 17957-4 Heart Rate 1: 68 bpm Height: 5'4" Respiratory Rate: 22 bpm Temperature: 36 .7 (C) / 98.0 (F) Weight: 210 lbs 11/14/2011 Blood Pressure 1: 124/80 Code: 8480-6 BMI: 36.4 Code: 52545-8 Heart Rate 1: 76 bpm Height: 5'4" Respiratory Rate: 20 bpm Temperature: 36 .8 (C) / 98.2 (F) Weight: 212 lbs 09/12/2011 Blood Pressure 1: 108/74 Code: 8480-6 BMI: 37.1 Code: 89471-9 Heart Rate 1: 72 bpm Height: 5'4" Respiratory Rate: 20 bpm Temperature: 37 .0 (C) / 98.6 (F) Weight: 216 lbs 08/15/2011 Blood Pressure 1: 122/80 Code: 8480-6 BMI: 36.9 Code: 25269-3 Heart Rate 1: 76 bpm Height: 5'4" Respiratory Rate: 20 bpm Temperature: 36 .2 (C) / 97.1 (F) Weight: 215 lbs 08/09/2011 Blood Pressure 1: 112/78 Code: 8480-6 BMI: 36.9 Code: 59127-4 Heart Rate 1: 68 bpm Height: 5'4" Respiratory Rate: 20 bpm Temperature: 36 .7 (C) / 98.0 (F) Weight: 215 lbs 07/03/2011 Blood Pressure 1: 140/94 Code: 8480-6 BMI: 36.2 Code: 29193-1 Heart Rate 1: 68 bpm Height: 5'4" Temperature: 36.0 (C) / 96.8 (F) Weight: 211 lbs 06/04/2011 Blood Pressure 1: 124/70 Code: 8480-6 BMI: 36.7 Code: 22546-5 Heart Rate 1: 68 bpm Height: 5'4" Respiratory Rate: 20 bpm Temperature: 36 .6 (C) / 97.9 (F) Weight: 214 lbs 05/03/2011 Blood Pressure 1: 130/76 Code: 8480-6 BMI: 36.4 Code: 47094-2 Heart Rate 1: 74 bpm Height: 5'5" Temperature: 36.2 (C) / 97.2 (F) Weight: 219 lbs 04/05/2011 Blood Pressure 1: 124/86 Code: 8480-6 BMI: 35.9 Code: 24812-9 Heart Rate 1: 76 bpm Height: 5'6" Respiratory Rate: 22 bpm Temperature: 36 .3 (C) / 97.3 (F) Weight: 219 lbs 03/08/2011 Blood Pressure 1: 112/78 Code: 8480-6 BMI: 35.1 Code: 64692-9 Heart Rate 1: 80 bpm Height: 5'6" Respiratory Rate: 26 bpm Temperature: 36 .9 (C) / 98.4 (F) Weight: 214 lbs 01/24/2011 Blood Pressure 1: 110/82 Code: 8480-6 BMI: 35.6 Code: 85421-9 Heart Rate 1: 80 bpm Height: 5'6" Temperature: 36.1 (C) / 97.0 (F) Weight: 217 lbs 01/02/2011 Blood Pressure 1: 106/72 Code: 8480-6 BMI: 35.6 Code: 58755-4 Heart Rate 1: 76 bpm Height: 5'6" [...] 1: 120/74 Code: 8480-6 BMI: 35.9 Code: 02289-1 Heart Rate 1: 72 bpm Height: 5'5" Temperature: 36.3 (C) / 97.4 (F) Weight: 216 lbs 09/19/2010 Blood Pressure 1: 124/80 Code: 8480-6 BMI: 35.4 Code: 30923-1 Heart Rate 1: 76 bpm Height: 5'5" [...] 1: 122/78 Code: 8480-6 BMI: 37.4 Code: 06604-6 Heart Rate 1: 84 bpm Height: 5'5" Weight: 225 lbs Functional Status No Functional Status data Reason For Visit Reason For Visit Effective Dates Notes ~generic 08/10/2019 pt has c/o of excess luisa yawning. Pt states that she goes through 2-3 episodes daily lasting approx 10 minutes. back pain 08/04/2019 follow up 07/06/2019 Hospital fw follow up 06/24/2019 From ER visit for [...] follow up 10/26/2015 ER visit from at [facility] for COPD Exacerbation follow up [...] up 03/01/2014 ER follow up 02/09/2014 Hospital [facility] gastroesophageal reflux 12/23/2013 painful urination [...] 09/02/2012 1mo fwup follow up 08/04/2012 2wk fw follow up 07/21/2012 [facility] sore throat 07/02/2012 headache 06/25/2012 request migraine [facility] follow up 06/24/2012 1mo fwup follow up 05/20/[facility] 05/08/2012 follow up 04/22/2012 fainting shoulder pain 02/13/2012 refill trazadone to [facility] follow up 01/28/2012 ER fwup follow up 12/26/2011 1mo fwup follow up 11/14/2011 2mo fwup follow up 09/12/2011 1mo fwup follow up 08/15/2011 ER fwup follow up 08/09/2011 follow up 07/03/2011 hospital stay follow up 06/04/2011 2mo fwup headache 05/03/2011 follow up 04/05/2011 1mo [facility]up [facility] 01/24/2011 frequent falling follow up 01/02/2011 decreased enalapril and propranolol rash 12/07/2010 under breasts/abdome n fold follow up 11/16/2010 1mo fwup follow up 11/02/2010 ER fwup follow up 10/18/[address] Medrano last w [facility], having increased allergy symptoms. Would like steroid [...] 1 month f/u follow up 12/07/2009 from [facility], done with PT--finished about 2wks ago follow up 11/08/2009 2wk fwup follow up 10/24/2009 hosp fwup ~generic 07/25/2009 bilateral earlobe re dness/swelling, pain radiating into neck, refill Demerol ~generic 05/26/2009 FALLING A LOT, SAVEL LA NOT HELPING FIBROMYALGIA PAIN, LT HAND LACERATION-FELL INTO NAIL 05/25/09 Encounters Encounter Performer Location Codes Date () OFFICE/OUTPATIENT VISIT EST Diagnosis: Yawning[ICD10: R06.89] Diagnosis: [facility] (obstructive sleep apnea)[ICD10: G47.33] Pattie REID [facility] CPT-4: 23249 08/10/2019 ([id number]) OFFICE/OUTPATIENT VISIT EST Diagnosis: Pelvic pain in female[ICD10: R10.2] Diagnosis: Left leg swelling[ICD10: M79.89] Diagnosis: Dyspnea[ICD10: R06.00] Diagnosis: Constipation[ICD10: K59.00] Pattie BRUNSON S. O RENDER DO [employer] CPT-4: 04407 08/04/2019 ([id number]) OFFICE/OUTPATIENT VISIT EST Diagnosis: Inspiratory stridor[ICD10: R06.1] Diagnosis: Diarrhea[ICD10: R19.7] Belia Reid [facility] CPT-4: 9921 3 07/06/2019 ([id number]) OFFICE/OUTPATIENT VISIT EST Diagnosis: Left leg swelling[ICD10: M79.89] Diagnosis: Dyspnea[ICD10: R06.00] [facility]: 9921 3 06/24/2019 ([id number]) OFFICE/OUTPATIENT VISIT EST Diagnosis: Acute bronchitis[ICD10: J20.9] Diagnosis: Colitis[ICD10: K52.9] Belia REID [facility] CPT-4: 18197 06/16/2019 ([id number]) OFFICE/OUTPATIENT VISIT EST Diagnosis: Diarrhea[ICD10: R19.7] Diagnosis: Abdominal bloating[ICD10: R14.0] [facility]PT[facility]: 59404 06/08/2019 ([id number]) OFFICE/OUTPATIENT VISIT EST Diagnosis: Acute febrile illness[ICD10: R50.9] Diagnosis: Colitis[ICD10: K52.9] Belia Reid [facility] CPT-4: 34125 05/26/2019 ([id number]) OFFICE/OUTPATIENT VISIT EST Diagnosis: Chronic obstructive pulmonary disease, unspecified[ICD10: J44.9] Diagnosis: Pulmonary fibrosis[ICD10: J84.10] Diagnosis: Intermittent stridor[ICD10: R06.1] Diagnosis: Muscle weakness[ICD10: M62.81] Belia REID [employer] [facility] CPT-4: 71286 05/13/2019 ([id number]) OFFICE/OUTPATIENT VISIT EST Diagnosis: Stridor[ICD10: R06.1] Diagnosis: COUGH[ICD10: R05] Belia REID [facility] CPT-4: 18440 05/06/2019 ([id number]) OFFICE/OUTPATIENT VISIT EST Diagnosis: Stridor[ICD10: R06.1] Diagnosis: Muscle, jerky movements (uncontrolled)[ICD10: G25.5] Belia REID [employer] [facility] CPT-4: 20204 04/29/2019 ([id number]) OFFICE/OUTPATIENT VISIT EST Diagnosis: Upper respiratory infection[ICD10: J06.9] Diagnosis: Flank pain[ICD10: R10.9] Diagnosis: Weight gain[ICD10: R63.5] Pattie AMBRIZ [facility] CPT-4: 18222 04/16/2019 ([id number]) OFFICE/OUTPATIENT VISIT EST Diagnosis: Generalized pruritus[ICD10: L29.9] Belia SMITH [employer] [facility] CPT-4: 72514 04/08/2019 ([id number]) OFFICE/OUTPATIENT VISIT EST Diagnosis: Acute bursitis of left shoulder[ICD10: M75.52] Diagnosis: Cervicalgia[ICD10: M54.2] Diagnosis: Chest wall pain[ICD10: R07.89] Belia REID [facility] CPT-4: 39620 01/22/2019 ([id number]) OFFICE/OUTPATIENT VISIT EST Diagnosis: Abdominal pain[ICD10: R10.9] Diagnosis: Pyelonephritis[ICD10: N12] Pattie DOMINGUEZ [employer] [facility] CPT-4: 62098 01/07/2019 ([id number]) OFFICE/OUTPATIENT VISIT EST Diagnosis: Low back pain[ICD10: M54.5] Diagnosis: Left lumbar radiculopathy[ICD10: M54.16] Diagnosis: Left flank pain[ICD10: R10.9] Diagnosis: Left lower quadrant pain[ICD10: R10.32] Diagnosis: FLU VACCINE[ICD10: Z23] Belia FREDERICK [employer] [facility] CPT-4: 19016 12/24/2018 ([id number]) OFFICE/OUTPATIENT VISIT EST Diagnosis: Migraine, unspecified, not intractable, without status migrainosus[ICD10: G43.909] Diagnosis: Fibromyalgia[ICD10: M79.7] Belia DOMINGUEZ [employer] [facility] CPT-4: 84210 11/20/2018 ([id number]) OFFICE/OUTPATIENT VISIT EST Diagnosis: Migraine, unspecified, intractable, without status migrainosus[ICD10: G43.919] Diagnosis: Acute sinusitis, unspecified[ICD10: J01.90] Pattie REID DO [facility] CPT-4: 70153 11/04/2018 ([id number]) OFFICE/OUTPATIENT VISIT EST Diagnosis: Pain in left wrist[ICD10: M25.532] Diagnosis: Other dorsalgia[ICD10: M54.89] Pattie REID DO [facility] CPT-4: 24822 09/08/2018 ([id number]) OFFICE/OUTPATIENT VISIT EST Diagnosis: Acute stress reaction[ICD10: F43.0] Diagnosis: Pruritus, unspecified[ICD10: L29.9] 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, 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] Belia REID DO [facility] CPT-4: 49836 08/20/2018 ([id number]) OFFICE/OUTPATIENT VISIT EST Diagnosis: Hypotension due to drugs[ICD10: I95.2] Diagnosis: Paroxysmal atrial fibrillation[ICD10: I48.0] Diagnosis: Localized edema[ICD10: R60.0] Belia REID DO [facility] [facility] CPT-4: 90406 06/19/2018 ([id number]) OFFICE/OUTPATIENT VISIT EST Diagnosis: Generalized hyperhidrosis[ICD10: R61] Diagnosis: Essential (primary) hypertension[ICD10: I10] Diagnosis: Supraventricular tachycardia[ICD10: I47.1] Belia REID DO [facility] CPT-4: 83825 06/09/2018 ([id number]) OFFICE/OUTPATIENT VISIT EST Diagnosis: Stridor[ICD10: R06.1] Diagnosis: Dependence on supplemental oxygen[ICD10: Z99.81] Diagnosis: Weakness[ICD10: R53.1] Diagnosis: Supraventricular tachycardia[ICD10: I47.1] Belia REID DO [facility] CPT-4: 34313 05/21/2018 ([id number]) OFFICE/OUTPATIENT VISIT EST Diagnosis: Cervical disc disorder with radiculopathy, unspecified cervical region[ICD10: M50.10] Belia REID DO [facility] CPT-4: 77367 04/16/2018 ([id number]) OFFICE/OUTPATIENT VISIT EST Diagnosis: Migraine, unspecified, intractable, without status migrainosus[ICD10: G43.919] Diagnosis: Fibromyalgia[ICD10: M79.7] Pattie DOMINGUEZ DO [facility] CPT-4: 09260 04/01/2018 ([id number]) NURSE/OUTPATIENT VISIT EST Diagnosis: Hematuria, unspecified[ICD10: R31.9] Diagnosis: Dysuria[ICD10: R30.0] Belia REID DO [facility] CPT-4: 67695 03/17/2018 ([id number]) OFFICE/OUTPATIENT VISIT EST Diagnosis: Erythema intertrigo[ICD10: L30.4] Diagnosis: Chronic obstructive pulmonary disease with (acute) exacerbation[ICD10: J44.1] Diagnosis: Type 2 diabetes mellitus with hyperglycemia[ICD10: E11.65] Belia REID DO [facility] CPT-4: 42903 03/06/2018 ([id number]) OFFICE/OUTPATIENT VISIT EST Diagnosis: Cervicalgia[ICD10: M54.2] Pattie AMBRIZ DO [facility] CPT-4: 41880 02/05/2018 ([id number]) OFFICE/OUTPATIENT VISIT EST Diagnosis: Candidiasis of skin and nail[ICD10: B37.2] Diagnosis: Cervicalgia[ICD10: M54.2] Pattie AMBRIZ DO [facility] CPT-4: 00687 01/20/2018 ([id number]) OFFICE/OUTPATIENT VISIT EST Diagnosis: Pain in thoracic spine[ICD10: M54.6] Diagnosis: Radiculopathy, thoracic region[ICD10: M54.14] Belia REID DO [facility] CPT-4: 17042 12/25/2017 ([id number]) OFFICE/OUTPATIENT VISIT EST Diagnosis: Pain in thoracic spine[ICD10: M54.6] Diagnosis: Other muscle spasm[ICD10: M62.838] Diagnosis: FLU VACCINE[ICD10: Z23] Diagnosis: PNEUMOCOCCAL VACCINE[ICD10: Z23] Belia REID DO [facility] CPT-4: 09004 12/17/2017 ([id number]) OFFICE/OUTPATIENT VISIT EST Diagnosis: Chronic obstructive pulmonary disease with (acute) exacerbation[ICD10: J44.1] Belia REID DO [facility] CPT- 4: 79066 10/30/2017 ([id number]) OFFICE/OUTPATIENT VISIT EST Diagnosis: Chronic obstructive pulmonary disease with acute lower respiratory infection[ICD10: J44.0] Diagnosis: Mild intermittent asthma with (acute) exacerbation[ICD10: J45.21] Belai REID DO [facility] CPT-4: 62242 10/23/2017 ([id number]) NURSE/OUTPATIENT VISIT EST Diagnosis: Migraine, unspecified, not intractable, without status migrainosus[ICD10: G43.909] Belia REID [employer] [facility] CPT - 4: 48625 08/26/2017 ([id number]) OFFICE/OUTPATIENT VISIT EST Diagnosis: Urinary tract infection, site not specified[ICD10: N39.0] Diagnosis: Encounter for screening for osteoporosis[ICD10: Z13.820] Diagnosis: Encounter for screening mammogram for malignant neoplasm of breast[ICD10: Z12.31] Diagnosis: Acute bronchitis, unspecified[ICD10: J20.9] Pattie REID [employer] [facility] CPT-4: 74352 07/19/2017 ([id number]) OFFICE/OUTPATIENT VISIT EST Diagnosis: Rash and other nonspecific skin eruption[ICD10: R21] Pattie REID DO [facility] CPT-4: 73032 05/29/2017 ([id number]) OFFICE/OUTPATIENT VISIT EST Diagnosis: Diarrhea, unspecified[ICD10: R19.7] Diagnosis: Tinea corporis[ICD10: B35.4] Diagnosis: Tinea cruris[ICD10: B35.6] Diagnosis: Migraine, unspecified, not intractable, without status migrainosus[ICD10: G43.909] Belia REID [employer] [facility] CPT - 4: 87177 05/07/2017 ([id number]) OFFICE/OUTPATIENT VISIT EST Diagnosis: Stridor[ICD10: R06.1] Diagnosis: Chronic obstructive pulmonary disease with (acute) exacerbation[ICD10: J44.1] Beila REID [facility] CPT- 4: 52665 03/18/2017 ([id number]) OFFICE/OUTPATIENT VISIT EST Diagnosis: Type 2 diabetes mellitus with hyperglycemia[ICD10: E11.65] Belia REID DO [facility] CPT-4: 08307 02/27/2017 OFFICE/OUTPATIENT VISIT EST Diagnosis: Type 2 diabetes mellitus with hyperglycemia[ICD10: E11.65] Pattie REID DO [facility] CPT-4: 73465 02/22/2017 ([id number]) OFFICE/OUTPATIENT VISIT EST Diagnosis: Urinary tract infection, site not specified[ICD10: N39.0] Diagnosis: Pneumonia, unspecified organism[ICD10: J18.9] Diagnosis: Type 2 diabetes mellitus with hyperglycemia[ICD10: E11.65] Belia REID [facility] CPT-4: 74392 01/23/2017 ([id number]) OFFICE/OUTPATIENT VISIT EST Diagnosis: Type 2 diabetes mellitus with hyperglycemia[ICD10: E11.65] Diagnosis: Localized edema[ICD10: R60.0] Diagnosis: PNEUMOCOCCAL VACCINE[ICD10: Z23] Diagnosis: FLU VACCINE[ICD10: Z23] Belia [facility] CPT-4: 28250 12/20/2016 OFFICE/OUTPATIENT VISIT EST Diagnosis: Pain in thoracic spine[ICD10: M54.6] Diagnosis: Low back pain[ICD10: M54.5] Diagnosis: Cervicalgia[ICD10: M54.2] Diagnosis: Cough[ICD10: R05] Celeste Ferreira BELIA REID DO [facility] CPT-4: 33537 10/08/2016 ([id number]) OFFICE/OUTPATIENT VISIT EST Diagnosis: Primary insomnia[ICD10: F51.01] Diagnosis: Migraine, unspecified, not intractable, without status migrainosus[ICD10: G43.909] Diagnosis: Type 2 diabetes mellitus with hyperglycemia[ICD10: E11.65] Belia REID [facility] CPT-4: 44152 09/19/2016 ([id number]) OFFICE/OUTPATIENT VISIT EST Diagnosis: Migraine, unspecified, not intractable, without status migrainosus[ICD10: G43.909] Diagnosis: Generalized abdominal pain[ICD10: R10.84] Diagnosis: Cough[ICD10: R05] Belia REID DO [facility] CPT-4: 84469 08/20/2016 ([id number]) OFFICE/OUTPATIENT VISIT EST Diagnosis: Chronic obstructive pulmonary disease, unspecified[ICD10: J44.9] Diagnosis: Stridor[ICD10: R06.1] Belia REID DO [facility] CPT-4: 59046 06/19/2016 ([id number]) OFFICE/OUTPATIENT VISIT EST Diagnosis: Chronic obstructive pulmonary disease, unspecified[ICD10: J44.9] Diagnosis: Personal history of urinary (tract) infections[ICD10: Z87.440] Belia REID DO [facility] CPT-4: 76546 06/04/2016 ([id number]) OFFICE/OUTPATIENT VISIT EST Diagnosis: Stridor[ICD10: R06.1] Diagnosis: Chronic obstructive pulmonary disease with acute lower respiratory infection[ICD10: J44.0] Diagnosis: Other specified diseases of intestine[ICD10: K63.89] Diagnosis: Cystitis, unspecified without hematuria[ICD10: N30.90] Belia REID DO [facility] CPT-4: 52084 05/02/2016 ([id number]) OFFICE/OUTPATIENT VISIT EST Diagnosis: Fibromyalgia[ICD10: M79.7] Diagnosis: Urinary tract infection, site not specified[ICD10: N39.0] Belia REID DO [facility] CPT-4: 62231 04/03/2016 ([id number]) OFFICE/OUTPATIENT VISIT EST Diagnosis: Unspecified asthma, uncomplicated[ICD10: J45.909] Diagnosis: Cough[ICD10: R05] LidiaClarita REID DO [facility] T-4: 63100 02/29/2016 ([id number]) OFFICE/OUTPATIENT VISIT EST Diagnosis: Migraine, unspecified, intractable, without status migrainosus[ICD10: G43.919] Diagnosis: Urinary tract infection, site not specified[ICD10: N39.0] Belia REID [employer] [facility] CPT-4: 94647 02/02/2016 ([id number]) OFFICE/OUTPATIENT VISIT EST Diagnosis: Urinary tract infection, site not specified[ICD10: N39.0] Diagnosis: Unspecified abdominal pain[ICD10: R10.9] Diagnosis: Pain in thoracic spine[ICD10: M54.6] Diagnosis: Type 2 diabetes mellitus with diabetic neuropathic arthropathy[ICD10: E11.610] Belia REID [employer] [facility] CPT-4: 53029 12/05/2015 ([id number]) OFFICE/OUTPATIENT VISIT EST Diagnosis: Chronic obstructive pulmonary disease with (acute) exacerbation[ICD10: J44.1] Diagnosis: Migraine, unspecified, not intractable, without status migrainosus[ICD10: G43.909] Lidia Jaiden HSUQUELINE BushraMayda ANUSHKA [employer] [facility] CPT -4: 46214 10/26/2015 ([id number]) OFFICE/OUTPATIENT VISIT EST Diagnosis: Hematuria, unspecified[ICD10: R31.9] Diagnosis: Urinary tract infection, site not specified[ICD10: N39.0] Lidia BRUNSON BushraMayda ANUSHKA [employer] [facility] CPT-4: 84306 10/05/2015 OFFICE/OUTPATIENT VISIT EST Diagnosis: Chronic obstructive pulmonary disease, unspecified[ICD10: J44.9] Diagnosis: Muscle weakness (generalized)[ICD10: M62.81] Diagnosis: Polyneuropathy, unspecified[ICD10: G62.9] Diagnosis: Other intervertebral disc degeneration, 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] Diagnosis: Fibromyalgia[ICD10: M79.7] Belia CORNELLLINE Yuridia DOMINGUZE [employer] [facility] CPT-4: 92371 09/15/2015 ([id number]) OFFICE/OUTPATIENT VISIT EST Diagnosis: Disorientation, unspecified[ICD10: R41.0] Diagnosis: Headache[ICD10: R51] Diagnosis: Paresthesia of skin[ICD10: R20.2] Lidia Paredes Yuridia RIED [employer] [facility] CPT-4: 44352 08/24/2015 ([id number]) OFFICE/OUTPATIENT VISIT EST Diagnosis: Type 2 diabetes mellitus with hyperglycemia[ICD10: E11.65] Diagnosis: Chronic obstructive pulmonary disease with acute lower respiratory infection[ICD10: J44.0] Belia REID [employer] [facility] CPT-4: 11047 07/05/2015 ([id number]) OFFICE/OUTPATIENT VISIT EST Diagnosis: Mild intermittent asthma with (acute) exacerbation[ICD10: J45.21] Diagnosis: Chronic obstructive pulmonary disease, unspecified[ICD10: J44.9] Belia REID [employer] [facility] CPT-4: 73796 06/06/2015 ([id number]) OFFICE/OUTPATIENT VISIT EST Diagnosis: Chronic obstructive pulmonary disease with (acute) exacerbation[ICD10: J44.1] Lidia REID [employer] [facility] CPT- 4: 86231 05/23/2015 ([id number]) OFFICE/OUTPATIENT VISIT EST Diagnosis: Type 2 diabetes mellitus with hyperglycemia[ICD10: E11.65] Diagnosis: Functional dyspepsia[ICD10: K30] Belia REID [employer] [facility] CPT-4: 17181 05/05/2015 ([id number]) OFFICE/OUTPATIENT VISIT EST Diagnosis: Type 2 diabetes mellitus with hyperglycemia[ICD10: E11.65] Diagnosis: Glycosuria[ICD10: R81] Diagnosis: Urinary tract infection, site not specified[ICD10: N39.0] Belia REID [employer] [facility] CPT-4: 27246 03/30/2015 ([id number]) OFFICE/OUTPATIENT VISIT EST Diagnosis: Generalized abdominal pain[ICD10: R10.84] Diagnosis: Diarrhea, unspecified[ICD10: R19.7] Diagnosis: Urinary tract infection, site not specified[ICD10: N39.0] Diagnosis: Gastro-esophageal reflux disease without esophagitis[ICD10: K21.9] Belia REID [employer] [facility] CPT-4: 22682 02/03/2015 ([id number]) OFFICE/OUTPATIENT VISIT EST Diagnosis: Other specified noninflammatory disorders of vagina[ICD10: N89.8] Diagnosis: Follicular disorder, unspecified[ICD10: L73.9] Diagnosis: Functional dyspepsia[ICD10: K30] Diagnosis: FLU VACCINE[ICD10: Z23] Belia [facility] CPT-4: 65729 12/29/2014 ([id number]) OFFICE/OUTPATIENT VISIT EST 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] Diagnosis: RESTLESS LEGS SYNDROME[ICD9: 333.94] Diagnosis: MIGRAINE NOS/NOT INTRCBL[ICD9: 346.90] Belia [facility] CPT-[facility]: 60436 09/02/2014 ([id number]) OFFICE/OUTPATIENT VISIT EST Diagnosis: Cervical radiculopathy[ICD9: 723.4] Diagnosis: Cervicalgia[ICD9: 723.1] Diagnosis: Degenerative disc disease, cervical[ICD9: 722.4] 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I[ICD9: 250.00] Belia [facility] CPT-4: 71695 04/01/2014 OFFICE/OUTPATIENT VISIT EST Diagnosis: Reactive airway disease[ICD9: 493.90] Belia [facility] CPT-4: 45524 03/16/2014 ([id number]) OFFICE/OUTPATIENT VISIT EST Diagnosis: BRONCHITIS, ACUTE[ICD9: 466.0] Diagnosis: Reactive airway disease[ICD9: 493.90] Belia [facility] CPT-4: 56276 03/09/2014 OFFICE/OUTPATIENT VISIT EST Diagnosis: BRONCHITIS, ACUTE[ICD9: 466.0] Diagnosis: WHEEZING[ICD9: 786.07] Huong [facility]A [facility] CPT-4: 44375 03/03/2014 OFFICE/OUTPATIENT VISIT EST Diagnosis: BRONCHITIS, ACUTE[ICD9: 466.0] Diagnosis: WHEEZING[ICD9: 786.07] Huong ARAMBULA [facility] CPT-4: 80758 03/01/2014 ([id number]) OFFICE/OUTPATIENT VISIT EST Diagnosis: GERD[ICD9: 530.81] Diagnosis: ARTHRALGIA-MULTIPLE SITES[ICD9: 719.49] Diagnosis: LUMB/LUMBOSAC DISC DEGEN[ICD9: 722.52] Diagnosis: - I - FIBROMYALGIA[ICD9: 729.1] Belia REID DO [facility] CPT-4: 83955 02/09/2014 ([id number]) OFFICE/OUTPATIENT VISIT EST Diagnosis: Peptic ulcer disease[ICD9: 533.90] Diagnosis: RESTLESS LEGS SYNDROME[ICD9: 333.94] Diagnosis: Neuropathy[ICD9: 355.9] Belia [facility] CPT-4: 69260 12/23/2013 ([id number]) OFFICE/OUTPATIENT VISIT EST Diagnosis: URINARY TRACT INFECTION[ICD9: 599.0] Belia REID DO [facility] CPT-4: 75409 10/30/2013 ([id number]) OFFICE/OUTPATIENT VISIT EST Diagnosis: Flank pain[ICD9: 789.00] Belia POOLE [facility] CPT-4: 79398 10/21/2013 ([id number]) OFFICE/OUTPATIENT VISIT EST Diagnosis: INFLAMED SEBORR KERATOS[ICD9: 702.11] Diagnosis: Brachioradial pruritus[ICD9: 698.9] Diagnosis: ASTHMA NOS[ICD9: 493.90] Belia POOLE [facility] CPT-4: 96327 10/05/2013 ([id number]) OFFICE/OUTPATIENT VISIT EST Diagnosis: HYPERTENSION[ICD9: 401.9] Diagnosis: - I - FIBROMYALGIA[ICD9: 729.1] Diagnosis: DIZZINESS/VERTIGO[ICD9: 780.4] Diagnosis: MIGRAINE NOS/NOT INTRCBL[ICD9: 346.90] Diagnosis: Diabetic peripheral neuropathy[ICD9: 250.60] Diagnosis: Flank pain[ICD9: 789.00] Belia POOLE [facility] CPT-4: 80660 08/04/2013 ([id number]) OFFICE/OUTPATIENT VISIT EST Diagnosis: ALLERGIC RHINITIS[ICD9: 477.9] Belia REID DO [facility] CPT-4: 00408 07/13/2013 OFFICE/OUTPATIENT VISIT EST Diagnosis: URINARY TRACT INFECTION[ICD9: 599.0] Huong De LunaFidebingjanneth KRAIG REID [facility] CPT-4: 54979 07/03/2013 OFFICE/OUTPATIENT VISIT EST Diagnosis: HYPERTENSION[ICD9: 401.9] Diagnosis: URINARY TRACT INFECTION[ICD9: 599.0] Diagnosis: BACKACHE[ICD9: 724.5] Diagnosis: URINARY INCONTINENCE[ICD9: 788.30] Huong De LunaKp KALI MARIE Yuridia REID [facility] CPT-4: 47377 05/27/2013 ([id number]) OFFICE/OUTPATIENT VISIT EST Diagnosis: Flank pain[ICD9: 789.00] Belia Zacharynilson BRUNSON BushraMayda KIESHA POOLE [facility] CPT-4: 98660 05/25/2013 ([id number]) OFFICE/OUTPATIENT VISIT EST Diagnosis: B-COMPLEX DEFIC NEC[ICD9: 266.2] Belia Zacharynilson BRUNSON Bush[facility]Mayda [facility]: 94861 05/04/2013 ([id number]) OFFICE/OUTPATIENT VISIT EST Diagnosis: ALLERGIC RHINITIS[ICD9: 477.9] Diagnosis: Vitamin B12 deficiency[ICD9: 266.2] Belia Zacharynilson THOMPSON Yuridia REID [facility] CPT-4: 40114 04/17/2013 ([id number]) OFFICE/OUTPATIENT VISIT EST 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I[ICD9: 250.00] Diagnosis: URINARY TRACT INFECTION[ICD9: 599.0] Diagnosis: DIZZINESS/VERTIGO[ICD9: 780.4] Diagnosis: DIARRHEA[ICD9: 787.91] Belia BRUNSON BushraMayda ZACHARYANT Sudhir [facility] CPT-4: 07051 04/06/2013 ([id number]) OFFICE/OUTPATIENT VISIT EST Diagnosis: URINARY TRACT INFECTION[ICD9: 599.0] Diagnosis: URINARY RETENTION[ICD9: 788.20] Belia BRUNSON BushraMayda ANUSHKA [facility] CPT-4: 90160 11/10/2012 ([id number]) OFFICE/OUTPATIENT VISIT EST Diagnosis: TACHYCARDIA[ICD9: 785.0] Diagnosis: SYNCOPE AND COLLAPSE[ICD9: 780.2] Diagnosis: CONSCIOUSNS ALTERAT NEC[ICD9: 780.09] Belia REID [facility] CPT-4: 54130 09/02/2012 OFFICE/OUTPATIENT VISIT EST Diagnosis: TACHYCARDIA[ICD9: 785.0] Diagnosis: SYNCOPE AND COLLAPSE[ICD9: 780.2] Belia Humphriesisabellaannie REID [facility] CPT-4: 72750 08/04/2012 ([id number]) OFFICE/OUTPATIENT VISIT EST Diagnosis: Loss of consciousness[ICD9: 780.09] Diagnosis: Tachycardia[ICD9: 785.0] Diagnosis: MALAISE AND FATIGUE[ICD9: 780.79] Belia HSUQUELIN Reggie REID [facility] CPT-4: 21735 07/21/2012 ([id number]) OFFICE/OUTPATIENT VISIT EST Diagnosis: BRONCHITIS, ACUTE[ICD9: 466.0] Diagnosis: ASTHMA NOS[ICD9: 493.90] Belia Orenilson BELIA Yuridia POOLE [facility] CPT-4: 83293 07/02/2012 ([id number]) OFFICE/OUTPATIENT VISIT EST Diagnosis: CEPHALGIA[ICD9: 784.0] Belia CORNELLLINE Yuridia Peguero [facility] CPT-4: 49399 06/25/2012 ([id number]) OFFICE/OUTPATIENT VISIT EST Diagnosis: GERD[ICD9: 530.81] Diagnosis: DIARRHEA[ICD9: 787.91] Diagnosis: URINARY TRACT INFECTION[ICD9: 599.0] Diagnosis: ASTHMA NOS[ICD9: 493.90] Diagnosis: ALLERGIC RHINITIS[ICD9: 477.9] Belia Humphriesnilson BELIA Bushra [facility] C[facility]: 10857 06/24/2012 ([id number]) OFFICE/OUTPATIENT VISIT EST Diagnosis: MIGRAINE NOS/NOT INTRCBL[ICD9: 346.90] Diagnosis: TREMOR NEC[ICD9: 333.1] Diagnosis: CHRONIC PAIN SYNDROME[ICD9: 338.4] Belia SALAZAR Yuridia REID [facility] CPT-4: 08083 05/20/2012 ([id number]) OFFICE/OUTPATIENT VISIT EST Diagnosis: DIZZINESS/VERTIGO[ICD9: 780.4] Diagnosis: PALPITATIONS[ICD9: 785.1] Diagnosis: TREMOR NEC[ICD9: 333.1] Diagnosis: ANXIETY STATE NOS[ICD9: 300.00] Diagnosis: POSTTRAUMATIC STRESS DISORDER[ICD9: 309.81] Belia Anushka BELIA BushraMayda ANUSHKA [employer] [facility] CPT-4: 59857 05/08/2012 ([id number]) OFFICE/OUTPATIENT VISIT EST Diagnosis: MIGRAINE NOS/NOT INTRCBL[ICD9: 346.90] Diagnosis: FIBROMYALGIA[ICD9: 729.1] Diagnosis: SYNCOPE AND COLLAPSE[ICD9: 780.2] Diagnosis: Diabetic peripheral neuropathy[ICD9: 250.60] Belia Orenilson Shi ANUSHKA [employer] [facility] CPT-4: 14389 04/22/2012 OFFICE/OUTPATIENT VISIT EST Diagnosis: ROTATOR CUFF DIS NEC[ICD9: 726.19] Diagnosis: JOINT PAIN-SHLDER[ICD9: 719.41] Diagnosis: DYSPEPSIA[ICD9: 536.8] Belia ARAMBULA Sudhir [employer] [facility] CPT-4: 24135 02/13/2012 ([id number]) OFFICE/OUTPATIENT VISIT EST Diagnosis: MIGRAINE NOS/NOT INTRCBL[ICD9: 346.90] Diagnosis: GERD[ICD9: 530.81] Diagnosis: DYSPEPSIA[ICD9: 536.8] Belia Shi RALF Peguero [employer] [facility] CPT-4: 40891 01/28/2012 OFFICE/OUTPATIENT VISIT EST Diagnosis: CEPHALGIA[ICD9: 784.0] Diagnosis: MIGRAINE NOS/NOT INTRCBL[ICD9: 346.90] Diagnosis: GERD[ICD9: 530.81] Diagnosis: INSOMNIA NOS[ICD9: 780.52] Belia Shi RAND ALBERTO [employer] [facility] CPT-4: 49004 12/26/2011 ([id number]) OFFICE/OUTPATIENT VISIT EST Diagnosis: CEPHALGIA[ICD9: 784.0] Diagnosis: MIGRAINE NOS/NOT INTRCBL[ICD9: 346.90] Diagnosis: MALAISE AND FATIGUE[ICD9: 780.79] Diagnosis: FIBROMYALGIA[ICD9: 729.1] Diagnosis: ALLERGIC RHINITIS[ICD9: 477.9] [facility]: 01800 11/14/2011 ([id number]) OFFICE/OUTPATIENT VISIT EST Diagnosis: MALAISE AND FATIGUE[ICD9: 780.79] Diagnosis: MUSCLE WEAKNESS-GENERAL[ICD9: 728.87] Diagnosis: MIGRAINE NOS/NOT INTRCBL[ICD9: 346.90] Diagnosis: JOINT PAIN-SHLDER[ICD9: 719.41] Belia TomlinsonMayda ANUSHKA [facility] CPT-4: 25897 09/12/2011 ([id number]) OFFICE/OUTPATIENT VISIT EST Diagnosis: CONCUSSION[ICD9: 850.9] Diagnosis: Ataxia[ICD9: 781.3] Diagnosis: DIZZINESS/VERTIGO[ICD9: 780.4] Belia REID [facility] CPT-4: 92242 08/15/2011 ([id number]) OFFICE/OUTPATIENT VISIT EST Diagnosis: THROMBOPHLEBITIS[ICD9: 451.9] Diagnosis: Subacromial bursitis[ICD9: 726.19] Diagnosis: ALLERGIC RHINITIS[ICD9: 477.9] Diagnosis: Lipoma[ICD9: 214.9] Belia REID [facility] CPT-4: 99517 08/09/2011 ([id number]) OFFICE/OUTPATIENT VISIT EST Diagnosis: THROMBOPHLEBITIS[ICD9: 451.9] Diagnosis: Arm pain[ICD9: 729.5] Diagnosis: Clostridium difficile colitis[ICD9: 008.45] Diagnosis: URINARY TRACT INFECTION[ICD9: 599.0] Belia TomlinsonMayda ANUSHKA [facility] CPT-4: 23298 07/03/2011 ([id number]) OFFICE/OUTPATIENT VISIT EST Diagnosis: ARTHRALGIA-MULTIPLE SITES[ICD9: 719.49] Diagnosis: Muscle cramp[ICD9: 729.82] Diagnosis: INSOMNIA NOS[ICD9: 780.52] Beliahanna HSUQUELINE BushraMayda RAND DOMINGUEZ [facility] CPT-4: 19212 06/04/2011 OFFICE/OUTPATIENT VISIT EST Diagnosis: Headache[ICD9: 784.0] Diagnosis: Allergic rhinitis[ICD9: 477.9] Belia REID [facility] CPT-4: 73829 05/03/2011 OFFICE/OUTPATIENT VISIT EST Diagnosis: LUMB/LUMBOSAC DISC DEGEN[ICD9: 722.52] Diagnosis: MIGRAINE NOS/NOT INTRCBL[ICD9: 346.90] Diagnosis: CHRONIC PAIN SYNDROME[ICD9: 338.4] Diagnosis: RESTLESS LEGS SYNDROME[ICD9: 333.94] Belia Zacharynilson ARNOLD Yuridia [facility] CPT-4: 83914 04/05/2011 OFFICE/OUTPATIENT VISIT EST Diagnosis: MIGRAINE NOS/NOT INTRCBL[ICD9: 346.90] Diagnosis: GERD[ICD9: 530.81] Belia [facility] CPT-4: 32130 03/08/2011 OFFICE/OUTPATIENT VISIT EST Diagnosis: URINARY TRACT INFECTION[ICD9: 599.0] Diagnosis: Vertigo[ICD9: 780.4] Diagnosis: GERD[ICD9: 530.81] Belia [facility] CPT-4: 17199 01/24/2011 OFFICE/OUTPATIENT VISIT EST Diagnosis: Hypotension[ICD9: 458.9] Diagnosis: Syncopal episodes[ICD9: 780.2] Diagnosis: MIGRAINE NOS/NOT INTRCBL[ICD9: 346.90] Diagnosis: MALAISE AND FATIGUE[ICD9: 780.79] Belia Zacharynilson Paredes Yuridia [facility] CPT-4: 08618 01/02/2011 OFFICE/OUTPATIENT VISIT EST Diagnosis: Tinea cruris[ICD9: 110.3] Diagnosis: Intertrigo[ICD9: 695.89] Diagnosis: MIGRAINE NOS/NOT INTRCBL[ICD9: 346.90] Belia Zacharynilson COKER Yuridia [facility] CPT-4: 70931 12/07/2010 OFFICE/OUTPATIENT VISIT EST Diagnosis: PALPITATIONS[ICD9: 785.1] Diagnosis: ANXIETY STATE NOS[ICD9: 300.00] Belia Zacharyisabellaannie CORNELLBELIA Yuridia [facility] CPT-4: 05117 11/16/2010 OFFICE/OUTPATIENT VISIT EST Diagnosis: URINARY TRACT INFECTION[ICD9: 599.0] Diagnosis: MIGRAINE NOS/NOT INTRCBL[ICD9: 346.90] Iraida CASILLAS [facility] CPT-4: 64079 11/02/2010 OFFICE/OUTPATIENT VISIT EST Diagnosis: ALLERGIC RHINITIS[ICD9: 477.9] Diagnosis: ANXIETY STATE NOS[ICD9: 300.00] Belia Reid [facility] CPT-4: 76770 10/18/2010 OFFICE/OUTPATIENT VISIT EST Belia Zacharyisabellaannie [facility] CPT- 4: 50056 09/19/2010 OFFICE/OUTPATIENT VISIT EST Belia Zacharyisabellaannie [facility]EL[facility] CPT- 4: 97838 09/06/2010 ([id number]) OFFICE/OUTPATIENT VISIT EST Belia Zacharyisabellaannie CASILLAS [facility] CPT-4: 57754 08/10/2010 ([id number]) OFFICE/OUTPATIENT VISIT EST Belia Smithannie CASILLAS [facility] CPT-4: 32464 05/11/2010 ([id number]) OFFICE/OUTPATIENT VISIT, EST Belia HSU [facility] CPT-4: 73048 04/06/2010 ([id number]) OFFICE/OUTPATIENT VISIT, EST Belia [facility] CPT-4: 53432 02/09/2010 ([id number]) OFFICE/OUTPATIENT VISIT, EST Belia [facility] CPT-4: 83593 01/05/2010 ([id number]) OFFICE/OUTPATIENT VISIT, EST Belia [facility] CPT-4: 18014 12/07/2009 ([id number]) OFFICE/OUTPATIENT VISIT, EST Bleia [facility] CPT-4: 63330 11/08/2009 ([id number]) OFFICE/OUTPATIENT VISIT, EST Belia [facility] CPT-4: 99404 10/24/2009 ([id number]) OFFICE/OUTPATIENT VISIT, EST Belia Anushka REID DO [employer] CPT-4: 02936 07/25/2009 ([id number]) OFFICE/OUTPATIENT VISIT, RIOS REID DO [employer] CPT-4: 62569 05/26/2009 Plan of Care Planned Activity Notes Codes Status Date Care Plan: MAMMOGRAM SCREENING LOINC : 2 6347-5 Pending 08/18/2019 Visit Diagnosis Plan: Yawning Discussion: discussed wi [...] new home sleep study on patient through [facility] to assess severity of symptoms, patient does wear her oxygen at night though. educated on importance of wearing oxygen at all times, even when in public. ICD-9 : 786.09 ICD-10 : R06.89 08/10/2019 Appointment: Pattie Sotomayor [address] [place], [place] [id number] AC[facility] 08/10/2019 Visit Diagnosis Plan: Dyspnea [...] ICD-10 : K59.00 08/04/2019 Appointment: Pattie Sotomayor [address] [place] [address] ACUTE ILLNESS 08/04/2019 Visit Diagnosis Plan: Inspiratory stridor Discussion: Continue oxygen via NC at 2 L Continue ativan at QID Follow Up: 4 weeks ICD-9 : 786.1 ICD-10 : R06.1 07/06/2019 Visit Diagnosis Plan: Diarrhea Discussion: Restart Col estid at once daily ICD-9 : 787.91 ICD-10 : R19.7 07/06/2019 Appointment: Belia Reid WPtel: [address] [place] [address] TELEMEDICINE 07/06/2019 Visit Diagnosis Plan: Left leg [...] : R06.00 06/24/2019 Appointment: Belia Reid WPtel: [facility] [address] TELEMEDICINE 06/24/2019 Visit Diagnosis Plan: Acute bronchitis Discussion: Cov er with levaquin Increase SVNs with albuterol to QID Has oxygen using q HS routinely and prn To ER if oxygen levels drop or worsening respiratory symptoms ICD-9 : 466.0 ICD-10 : J20.9 06/16/2019 Visit Diagnosis Plan: Colitis Discussion: Levaquin/Fla gyl [place] Diet ICD-9 : 558.9 ICD-10 : K52.9 06/16/2019 Appointment: Belia Reid WPtel: [address] [place] [address] TELEMEDICINE 06/16/2019 Patient Education: Levaquin- OptimizeRX Coupon [id number] [id number] https://www.[employer]/Semetric/resources/getResource/61/09k03jyl-5cd0-84u9-04 Completed 06/16/2019 Visit Diagnosis Plan: Diarrhea Discussion: Vancomycin for 10 days and notify if not improving or worsening BLAND diet Hydrate ICD-9 : 787.91 ICD-10 : R19.7 06/08/2019 Appointment: Belia Reid WPtel: [address] [place] [address] TELEMEDICINE 06/08/2019 Visit Diagnosis Plan: Acute febrile illness Discussion : Notify if worsens ICD-9 : 780.60 ICD-10 : R50.9 05/26/2019 Visit Diagnosis Plan: Colitis Discussion: Flagyl plus cipro to cover for both colitis and UTI Notify or to ER if worsening ICD-9 : 558.9 ICD-10 : K52.9 05/26/2019 Appointment: Belia Reid WPtel: [address] [place] [address] TELEMEDICINE 05/26/2019 Appointment: Pattie Sotomayor [address] [place] [address] RESCHEDULED 05/18/2019 Visit Diagnosis Plan: Chronic obstructive pulmonary di sease, unspecified Discussion: Recommend pulmonary rehab Patient states she never went to pulmonary rehab due to cost as well as transportation issues Finish trelagy Stop singulair Decrease hydroxyzine to 25mg po q HS Fwup [address] scan of Chest results discussed ICD-9 : 496 ICD-10 : J44.9 05/13/2019 Appointment: Belia Reid WPtel: [address] [place], [place] [phone] Hospital Follow Up 05/13/2019 Visit Diagnosis Plan: COUGH Discussion: Check CT scan of chest ICD-9 : 786.2 ICD-10 : R05 05/06/2019 Visit Diagnosis Plan: Stridor Discussion: Add Trelagy 1 p daily Add Singulair 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 ICD-9 : 786.1 ICD-10 : R06.1 05/06/2019 Appointment: Belia Reid WPtel: [address] [place], [place] [phone] FOLLOW UP 05/06/2019 Patient Education: Singulair- OptimizeRX Coupon [phone] https://www.[employer]/samplemd/resources/getResource/61/4079027n-b04o-16b7-sj Completed 05/06/2019 Appointment: Belia Reid WPtel: [address] [place] [address] [place] RESCHEDULED 04/30/2019 Visit Diagnosis Plan: Muscle, [...] : R06.1 04/29/2019 Appointment: Belia Reid WPtel: [address] [place], [place] [phone] Hospital Follow Up 04/29/2019 Patient Education: Valium- OptimizeRX Coupon [id number] https://www.[employer]/samplemd/resources/getResource/61/e00322wm-800d-8y90-4f Completed 04/29/2019 Visit Diagnosis Plan: Weight gain [...] ICD-10 : R10.9 04/16/2019 Appointment: Pattie Sotomayor [address] [place] [address] ACUTE ILLNESS 04/16/2019 Patient Education: cyclobenzaprine- OptimizeRX Coupon [id number] https://www.[employer]/sampleImproveit! 360/resources/getResource/61/dn64y8s9-7748-6903-y5 Completed 04/16/2019 Visit Diagnosis Plan: Generalized pruritus Discussion: Hydroxyzine 25mg po TID for itching and anxiety ICD-9 : 698.9 ICD-10 : L29.9 04/08/2019 Visit Diagnosis Plan: Migraine, unspecif ied, not intractable, without status migrainosus Discussion: Increase gabapentin to 600mg po BID ICD-9 : 346.90 ICD-10 : G43.909 04/08/2019 Appointment: Belia Reid WPtel: [address] [place] [address] ACUTE ILLNESS 04/08/2019 Visit Diagnosis Plan: Cervicalgia [...] : M75.52 01/22/2019 Appointment: Belia Reid WPtel: [facility] [address] Hospital Follow Up 01/22/2019 Visit Diagnosis Plan: Abdominal pain Discussion: urine culture sent to assess for any infection. rocephin given in office to cover for pyelonephritis. instructed to push fluids. call office with any new or worsening symptoms. ICD-9 : 789.00 ICD-10 : R10.9 01/07/2019 Appointment: Pattie Sotomayor [facility] [facility] 01/07/2019 Visit Diagnosis Plan: Low back pain Discussion: Stat C T of abdomen/pelvis now ICD-9 : 724.2 ICD-10 : M54.5 12/24/2018 Appointment: Belia Reid WPtel: [address] [place] [address] FOLLOW UP 12/24/2018 Visit Diagnosis Plan: Fibromyalgia [...] : G43.909 11/20/2018 Appointment: Belia Reid WPtel: [address] [place], [place] [phone] ACUTE ILLNESS 11/20/2018 Patient Education: baclofen- OptimizeRX Coupon [id number] https://www.[employer]/samplemd/resources/getResource/61/1f0438v9-fc7j-93od-64 Completed 11/20/2018 Visit Diagnosis Plan: Migraine, unspecif ied, intractable, without status migrainosus Discussion: toradol/phenergan given in o ffice (60 mg toradol, 12.5 mg phenergan). instructed to call if no improvement or worsening. instructed to follow up with foxpro developer since headaches are occurring more frequently to make sure vision is not the cause. ICD-9 : 346.91 ICD-10 : G43.919 11/04/2018 Visit Diagnosis Plan: Acute sinusitis, unspecified Dis cussion: zithromax prescribed to cover for sinus infection due to length of symptoms and clinincal s/s. ICD-9 : 461.9 ICD-10 : J01.90 11/04/2018 Appointment: Pattie Sotomayor [address] [facility] [facility] 11/04/2018 Appointment: Belia Reid WPtel: [address] [place], [place] [phone] [place] CANCELED 09/24/2018 Visit Diagnosis Plan: Type 2 diabetes me llitus with diabetic neuropathy, unspecified Discussion: Retry gabapentin 300mg po q HS ICD-9 : 250.60 ICD-10 : E11.40 09/18/2018 Visit Diagnosis Plan: Vitamin D deficiency, unspecifie d Discussion: Increase Vitamin D3 to 10,000 u daily ICD-9 : 268.9 ICD-10 : E55.9 09/18/2018 Visit Diagnosis Plan: Encounter for [facility] adult medical examination without abnormal findings [...] : I10 09/18/2018 Appointment: Belia Reid WPtel: [address] [place], [place] [phone] Annual Well Visit 09/18/2018 Patient Education: gabapentin- OptimizeRX Coupon [id number] https://www.[employer]/samplemd/resources/getResource/61/0c39jf40-6cp0-7vuz-j2 Completed 09/18/2018 Visit Diagnosis Plan: Pain in [...] ICD-10 : M54.89 09/08/2018 Appointment: Pattie Sotomayor [address] [place] [address] ACUTE ILLNESS 09/08/2018 Patient Education: prednisone- OptimizeRX Coupon [phone] https://www.[employer]/samplemd/resources/getResource/61/8z2ht25a-6878-16e9-kv Completed 09/08/2018 Visit Diagnosis Plan: Acute stress [...] L29.9 08/20/2018 Appointment: Belia Reid WPtel: [address] [place] [address] ACUTE ILLNESS 08/20/2018 Patient Education: Lexapro- OptimizeRX Coupon [id number] Completed 08/20/2018 Patient Education: hydroxyzine HCl- OptimizeRX Coupon [id number] Completed 08/20/2018 Care Plan: MAMMOGRAM SCREENING LOINC : 2 6347-5 Pending 08/20/2018 Visit Diagnosis Plan: Paroxysmal atrial fibrillation D iscussion: Discuss eliquis need with cardiology at [facility] due to cost ICD-9 : 427.31 ICD-10 : I48.0 06/19/2018 Visit Diagnosis Plan: Hypotension due to drugs Discuss ion: Discussed decreasing cardizem dose due to low BP and edema but sees cardiology next week Follow Up: 1 months ICD-9 : 458.8 ICD-10 : I95.2 06/19/2018 Appointment: Belia Reid WPtel: [address] [place], [place] [phone] [place] FOLLOW UP 06/19/2018 Visit Diagnosis Plan: [...] : I10 06/09/2018 Appointment: Belia Reid WPtel: [address] [place], [place] [address] FOLLOW UP 06/09/2018 Care Plan: CHEST X-RAY 2VW FRONTAL&LATL LOINC : 23956-2 Pending 05/26/2018 Visit Diagnosis Plan: Stridor Discussion: [...] I47.1 05/21/2018 Appointment: Belia Reid WPtel: [address] [place] [phone] Hospital Follow Up 05/21/2018 Visit Diagnosis Plan: Cervical disc diso rder with radiculopathy, unspecified cervical region Discussion: Scheduled for surgery on 06/02 10/[address] Faulkner ICD-9 : 722.0 ICD-10 : M50.10 04/16/2018 Appointment: Belia Reid WPtel: [phone] Hospital Follow Up 04/16/2018 Visit Diagnosis Plan: [...] ICD-10 : G43.919 04/01/2018 Appointment: Pattie Sotomayor [address] [place] [address] ACUTE ILLNESS 04/01/2018 Appointment: Belia Reid WPtel: [address] [place] [address] 03/17/2018 Visit Diagnosis Plan: Erythema intertrigo Discussio: [...] : J44.1 03/06/2018 Appointment: Belia Reid WPtel: [facility] [address] Hospital Follow Up 03/06/2018 Visit Diagnosis Plan: Cervicalgia Discussion: spoke wi th dr. reid about patient. increased gabapentin to bid and started on celebrex bid. tramadrol rx written out to take prn. keep scheduled appt next week for myelogram. ICD-9 : 723.1 ICD-10 : M54.2 02/05/2018 Appointment: Pattie Sotomayor [address] ACUTE ILLNESS 02/05/2018 Care Plan: X-RAY EXAM NECK SPINE 4/5VWS cervical LOINC : 22286-9 Pending 01/21/2018 Visit Diagnosis Plan: Cervicalgia Discussion: [...] ICD-10 : B37.2 01/20/2018 Appointment: Pattie Sotomayor [address] [place], [place] [phone] ACUTE ILLNESS 01/20/2018 Visit Diagnosis Plan: Pain in thoracic spine Discussio n: Proceed with CT scan of thoracic spine Will likely need PT ICD-9 : 724.1 ICD-10 : M54.6 12/25/2017 Appointment: Belia Reid WPtel: [phone] [facility] [facility] 12/25/2017 Care Plan: CT THORAX W/O DYE LOINC : 473 66-0 Pending 12/25/2017 Visit Diagnosis Plan: Pain in thoracic spine Discussio n: Stretches Alternated heat/ice Topical aspercreme with lidocaine Flexeril Recheck 1 week Flu and Pneumovax given ICD-9 : 724.1 ICD-10 : M54.6 12/17/2017 Appointment: Belia Reid WPtel: 2[address] [facility] ACUTE ILLNESS 12/17/2017 Patient Education: Patient Medication [...] : 491.21 ICD-10 : J44.1 10/30/2017 Appointment: Beila Reid WPtel: [address] [place], [place] [phone] [place] FOLLOW UP 10/30/2017 Patient Education: Patient Medication Summary Completed 10/30/2017 Visit Diagnosis Plan: Chronic obstructiv e pulmonary disease with acute lower respiratory infection Discussion: Continue SVNs with albuterol q4hrs Add Trelagy 1 inhalation daily Finish steroids Increase water intake Follow Up: 1 weeks ICD-9 : 496 ICD-10 : J44.0 10/23/2017 Appointment: Belia Reid WPtel: [address] [place], [place] [phone] WORK IN 10/23/2017 Patient Education: Patient Medication Summary Completed 10/23/2017 Appointment: Belia Reid WPtel: [address] [place], [place] [phone] NO SHOW 10/16/2017 Visit Diagnosis Plan: Confusional arousals Discussion: Ankitaley medicaion related Decrease amitriptyelne to 1/2 tab for 1 week then stop Follow Up: 1 months ICD-9 : 327.41 ICD-10 : G47.51 09/17/2017 Visit Diagnosis Plan: Type 2 diabetes mellitus with hy perglycemia Discussion: Continue amaryl and metformin and accuchecks at least BID Obtain most recent HbA1C done at ICD-9 : 250.02 ICD-10 : E11.65 09/17/2017 Appointment: Belia Reid WPtel: [address] [place], [place] [phone] Annual Well Visit 09/17/2017 Patient Education: Patient Medication Summary Completed 09/17/2017 Appointment: Belia Reid WPtel: [address] [place], [place] [phone] [place] INJECTION 08/26/2017 Patient Education: Patient Medication Summary Completed 08/26/2017 Appointment: Belia Reid WPtel: [address] [place], [place] [phone] US CANCELED 07/31/2017 Visit Diagnosis Plan: Encounter [...] : J20.9 07/19/2017 Appointment: Pattie Sotomayor [address] [id number] 07/19/2017 Patient Education: Patient Medication Summary Completed 07/19/2017 Care Plan: MAMMOGRAM SCREENING LOINC : 2 6347-5 Pending 07/19/2017 Patient Education: Patient Medication Summary Completed 06/05/2017 Care Plan: LIPID PANEL LOINC : 39421-7 Pending 06/05/2017 Care Plan: A1C HPLC LOINC : 16072-1 Pending 06/05/2017 Visit Diagnosis Plan: Rash and [...] ICD-10 : R21 05/29/2017 Appointment: Pattie Sotomayor [facility] FOLLOW UP 05/29/2017 Patient Education: Patient Medication Summary Completed 05/29/2017 Visit Diagnosis Plan: Diarrhea, unspecified Discussion : Diflucan Cholestyramine Recheck 2weeks ICD-9 : 787.91 ICD-10 : R19.7 05/07/2017 Visit Diagnosis Plan: Tinea corporis Discussion: Diflu can and topical nystatin Follow Up: 2 weeks ICD-9 : 110.5 ICD-10 : B35.4 05/07/2017 Appointment: Belia Reid WPtel: [address] [place] [phone] US FOLLOW UP 05/07/2017 Patient Education: Patient Medication Summary Completed 05/07/2017 Appointment: Belia Reid WPtel: [address] [place], [place] [phone] [place] RESCHEDULED 04/30/2017 Visit Diagnosis Plan: Stridor Discussion: Increase Ati van 0.5mg po to TID routinely for next week then can go back to prn ICD-9 : 786.1 ICD-10 : R06.1 03/18/2017 Visit Diagnosis Plan: Chronic obstructiv e pulmonary disease with (acute) exacerbation Discussion: Finish prednisone Continue S VNS with albuterol ICD-9 : 491.21 ICD-10 : J44.1 03/18/2017 Appointment: Belia Reid WPtel: [address] [place] [phone] ER Follow UP 03/18/2017 Patient Education: Patient [...] : E11.65 02/27/2017 Appointment: Belia Reid WPtel: [address] [place] [address] [place] FOLLOW UP 02/27/2017 Patient Education: Patient [...] : E11.65 02/22/2017 Appointment: Pattie Sotomayor [facility] [facility] 02/22/2017 Patient Education: Patient Medication [...] : J18.9 01/23/2017 Appointment: Belia Reid WPtel: [facility] [facility] Follow UP 01/23/2017 Patient Education: Patient Medication Summary Completed 01/23/2017 Appointment: Pattie Sotomayor [address] [facility] [place] CANCELED 01/17/2017 Appointment: Pattie Sotomayor [address] [place], [place] [address] Annual Well Visit 01/14/2017 Visit Diagnosis Plan: Type 2 diabetes mellitus with hy perglycemia Discussion: Check CMP, HbA1C Flu shot and Prevnar 13 given Follow Up: 3 months ICD-9 : 250.02 ICD-10 : E11.65 12/20/2016 Visit Diagnosis Plan: Localized edema Discussion: Low Na diet Compression socks/Elevate feet ICD-9 : 782.3 ICD-10 : R60.0 12/20/2016 Appointment: Belia Reid WPtel: [address] [place], [place] [phone] [place] FOLLOW UP 12/20/2016 Patient Education: Patient Medication Summary Completed 12/20/2016 Patient Education: Patient Medication Summary Completed 10/10/2016 Visit Plan: Xrays of cervical, thoracic and lumbar spine at [facility] for Mobic (stop NSAIDS except Tylenol) and Flexeril UA sent for C&S Using SVN Call in 2-3 days if pain not improved or any worsening 10/08/2016 Appointment: Celeste Ferreira WPtel: [address] [place] [address] ACUTE ILLNESS 10/08/2016 Patient Education: Patient Medication [...] : G43.909 09/19/2016 Appointment: Belia Reid WPtel: [facility] 09/18 confirmed`sl FOLLOW UP 09/19/2016 Patient [...] : G43.909 08/20/2016 Appointment: Belia Reid WPtel: [address] [place] [phone] 08/16 confirmed~sl FOLLOW UP 08/20/2016 Patient Education: [...] : R06.1 06/19/2016 Appointment: Belia Reid WPtel: [address] [place] [address] 06/18 confirmed ~ Hospital Follow Up 06/19/2016 [...] : Z87.440 06/04/2016 Appointment: Belia Reid WPtel: [address] [place], [place] [phone] 06/01 confirmed~sl FOLLOW UP 06/04/2016 Patient Education: [...] : N30.90 05/02/2016 Appointment: Belia Reid WPtel: [address] [place] [address] 05/01 confirmed [facility] Hospital Follow Up 05/02/2016 Patient Education: [...] : N39.0 04/03/2016 Appointment: Belia Reid WPtel: [address] [place] [phone] [facility] 04/03/2016 Patient Education: Patient Medication Summary Completed 04/03/2016 Visit Plan: Lungs are clear Her symptoms and exam are all upper airway restriction/constriction Can try supportive care Rx as above Follow up PRN 02/29/2016 Appointment: Lidia Hwang [address] [place], [place] [phone] ACUTE ILLNESS 02/29/2016 Patient Education: Patient Medication Summary Completed 02/29/2016 Visit Plan: Toradol/Phenergan today for Migraine Change to Clindamycin to cover lactobacillus for UTI Cover with flagyl due to hx of C. Diff 02/02/2016 Appointment: Belia Reid WPtel: [address] [place] [phone] 01/31 confirmed` ACUTE ILLNESS 02/02/2016 Patient Education: Patient Medication Summary Completed 02/02/2016 Visit Plan: Increase neurontin to 300mg q AM and 600mg q PM Discussed neurology re-evaluation Flu shot given Need to check on Pneumonia shot Rx written out for albuterol 01/05/2016 Appointment: Belia Reid WPtel: [address] [place] [phone] 01/03 confirmed ~sl Annual Well Visit 01/05/2016 Patient Education: Patient Medication Summary Completed 01/05/2016 Visit Plan: Cipro Culture urine hydrate Flexeril refilled Alternate heat and ice for back Increase gabapentin to 300mg po BID Notify if worsens 12/05/2015 Appointment: Belia Reid WPtel: [address] [place] [address] 11/30 confirmed~sl ACUTE ILLNESS 12/05/2015 Patient Education: Patient Medication Summary Completed 12/05/2015 Patient Education: Patient Medication Summary Completed 10/27/2015 Care Plan: COMPREHEN METABOLIC PANEL [place] : 01410-0 Pending 10/27/2015 Care Plan: A1C HPLC LOINC : 54648-0 Pending 10/27/2015 Visit Plan: Lungs are CTA today and is f eeling improved overall Finish meds as ordered Continue inhalers and neb treatments Discussed migraine treatment options She does not feel she needs anything additional added today Refill of Januvia sent since no samples are available today 10/26/2015 Appointment: Lidia Hwang [address] [place] [address] Hospital Follow Up 10/26/2015 Appointment: Lidia Hwang [address] [place] [address] CANCELED 10/26/2015 Patient Education: Patient Medication Summary Completed 10/26/2015 Patient Education: Januvia - 18+ - KENNETH - No [place] Completed 10/26/2015 Visit Plan: Office dip still abnormal Cu lture pending Switch to cipro - stop macrobid Push fluids - avoid caffeine Will call with culture results when available Follow up if worsening 10/05/2015 Appointment: Lidia Hwang [address] [place] [address] ER Follow UP 10/05/2015 Patient Education: Patient Medication Summary Completed 10/05/2015 Visit Plan: Proceed with PT for document ation of ROM and strength of all extremities Proceed with Power Mobility Device Trial of neurontin 300mg q HS--lyrica helped but patient unable to afford Recheck 1month 09/15/2015 Appointment: Belia Reid WPtel: [phone] [facility] 09/13 confirmed~sl SPECIAL 09/15/2015 Patient Education: Patient Medication Summary Completed 09/15/2015 Visit Plan: Fille out Loan Discharge Pap erwork for total and permanent disability 08/25/2015 Patient Education: Patient Medication Summary Completed 08/25/2015 Visit Plan: Discussed with Dr Anushka Haywood at CT of head Will get last date of carotid doppler from her children's literature professor and update if needed 08/24/2015 Appointment: Lidia Hwang [address] [place], [place] [phone] 08/22 confirmed~sl ACUTE ILLNESS 08/24/2015 Patient Education: Patient Medication Summary Completed 08/24/2015 Patient Education: Patient Medication Summary Completed 08/24/2015 Care Plan: US EXAM OF HEAD AND NECK carotid Ultrasound LOIN C : 38375-5 Pending 08/24/2015 Visit Plan: Long discussion about diet A ccuchecks daily Check HbA1C, CMP Change requip to mirapex 07/05/2015 Appointment: Belia Reid WPtel: [address] [place] [address] 07/03 confirmed ~sl FOLLOW UP 07/05/2015 Patient Education: Patient Medication Summary Completed 07/05/2015 Visit Plan: Add Breo ellipta 100 1 p BID Continue SVNs with duoneb QID 06/06/2015 Appointment: Belia Reid WPtel: [phone] [facility] Patient is calling for a ride, then [...] not improving 05/23/2015 Appointment: Huong Osborne WPtel: [address] [place], [place] [phone] ACUTE ILLNESS 05/23/2015 Appointment: Lidia Hwang [address] [place], [place] [phone] ER Follow UP 05/23/2015 Patient Education: Patient Medication Summary Completed 05/23/2015 Visit Plan: Check pancreatic enzymes and US of pancreas as patient can't understand why she has diabetes since has no family history Discussed weight, diet, exercise all play an important role in diabetes and are risk factors as well Continue Januvia and accuchecks daily 05/05/2015 Appointment: Belia Reid WPtel: [address] [place], [place] [phone] FOLLOW UP 05/05/2015 Patient Education: Patient Medication Summary Completed 05/05/2015 Care Plan: US EXAM ABDOM COMPLETE LOINC : 79585-6 Ordered 05/05/2015 Visit Plan: Start Januvia 100mg daily [place] with diflucan and culture urine Accuchecks daily alternating times Recheck 6weeks 03/30/2015 Appointment: Belia Reid WPtel: [address] [place] [phone] 03/29 confirmed~lb FOLLOW UP 03/30/2015 Patient Education: Patient Medication Summary Completed 03/30/2015 Appointment: Belia Reid WPtel: [address] [place], [place] [phone] 03/01 needs reschedule due to payment and insurance ~sl FOLLOW UP 03/02/2015 Visit Plan: Patient was just in ER last night so has not filled scripts yet Start Carafate and Flagyl and Cipro Add Hyophen 1 po BID Recheck 1mo 02/03/2015 Appointment: Belia Reid WPtel: [address] [place] [address] 02/02lm ~sl...02/03/15 appt confirmed cn ACUTE I LLNESS 02/03/2015 Patient Education: Patient Medication Summary Completed 02/03/2015 Visit Plan: Warm soaks to vaginal area K elex and Diflucan and observe Zofran to use prn 12/29/2014 Appointment: Belia Reid WPtel: [address] [place] [phone] 12/28 Confirmed ~sl ACUTE ILLNESS 12/29/2014 Patient Education: Patient Medication Summary Completed 12/29/2014 Appointment: Huong Osborne WPtel: [address] [place] [phone] FOLLOW UP 09/24/2014 Appointment: Belia Reid WPtel: [address] [place] [phone] 09/15 confirmed -mf FOLLOW UP 09/16/2014 Visit Plan: Increase requip to 2mg po BI D Increase lyrica to 225mg total a day by adding an extra 75mg in AM Recheck in 2weeks Continue to patch left eye while sleeping 09/02/2014 Appointment: Belia Reid WPtel: [address] [place], [place] [phone] 09/01 appt confirmed cn Hospital Follow Up 09/02 Patient Education: Patient Medication Summary Completed 09/02/2014 Visit Plan: To Via Ayanna for observat ion to R/O CVA 08/25/2014 Appointment: Huong Osborne WPtel: [address] [place], [place] [phone] ACUTE ILLNESS 08/25/2014 Patient Education: Patient Medication Summary Completed 08/25/2014 Referral: Aaron Jonas WPtel: [facility] [address], [id number] In [place] location Initiated 04/26/2014 Referral: Brian Srinivasan WPtel: [address] [id number] [place] Referral Initiated 04/20/2014 Appointment: Belia Reid WPtel: [address] [place] [phone] ER Follow UP 04/01/2014 Patient Education: Patient Medication Summary Completed 04/01/2014 Care Plan: MYELOGRAPHY NECK SPINE LOINC : 87238-6 Ordered 04/01/2014 Visit Plan: Continue Symbicort 160 at 2p BID Continue SVNs with duoneb at least QID Finish Levaquin Recheck 1mo on lyrica 03/16/2014 Appointment: Belia Reid WPtel: [address] [place], [place] [phone] 03/15 voicemail FOLLOW UP 03/16/2014 Patient Education: Patient Medication Summary Completed 03/16/2014 Visit Plan: Restart SVNs with duoneb QID Repeat prednisone Levaquin Continue symbicort Keep lyrica at same dose Recheck 1week 03/09/2014 Appointment: Belia Reid WPtel: [address] [place] [address] FOLLOW UP 03/09/2014 Patient Education: Patient Medication Summary Completed 03/09/2014 Appointment: Belia Reid WPtel: [address] [place] [phone] 03/03 showed up 15 minutes late for appt -- put her on Huong's side for 10:45am FORGIVEN PER DR FOLLOW UP 03/03/2014 Appointment: Huong Osborne WPtel: [address] [place], [place] [phone] [place] FOLLOW UP 03/03/2014 Patient Education: Patient Medication Summary Completed 03/03/2014 Appointment: Huong Osborne WPtel: [address] [place], [place] [phone] ER Follow UP 03/01/2014 Patient Education: Patient Medication Summary Completed 03/01/2014 Visit Plan: Add carafate for this next m onth Increase lyrica to 150mg q HS 02/09/2014 Appointment: Belia Reidtel: [address] [place], [place] [phone] [facility] Follow Up 02/09/2014 Patient Education: Patient Medication Summary Completed 02/09/2014 Visit Plan: Increase omeprazole back to 40mg po BID Use requip in AM and add lyrica 75mg q HS Recheck 1mo 12/23/2013 Appointment: Belia Reid WPtel: [address] [place], [place] [id number] FOLLOW UP 12/23/2013 Patient Education: Patient Medication Summary Completed 12/23/2013 Patient Education: Patient Medication Summary Completed 12/04/2013 Appointment: Belia Reid WPtel: [address] [place], [place] [phone] [facility] 10/30/2013 Patient Education: Patient Medication Summary Completed 10/30/2013 Appointment: Belia Reid WPtel: [address] [place], [place] [phone] [facility] 10/21/2013 Patient Education: Patient Medication Summary Completed 10/21/2013 Visit Plan: Cryotherapy as above TAC and hydroxyzine to use prn to itching spots and itching SKs Add Advair HFA 115/21 1 p BID 10/05/2013 Appointment: Belia Reid WPtel: [address] [place], [place] [id number] 10/01 pt called and confirmed ACUTE ILLNESS Patient Education: Patient Medication Summary Completed 10/05/2013 Appointment: Belia Reid WPtel: [address] [place], [place] [phone] will pay copay and part of past balance FOLLOW U P 08/04/2013 Patient Education: Patient Medication Summary Completed 08/04/2013 Appointment: Belia Reid WPtel: [address] [place], [place] [phone] [place] INJECTION 07/13/2013 Patient Education: Patient Medication Summary Completed 07/13/2013 Appointment: Huong Osborne WPtel: [address] [place], [place] [phone] ACUTE ILLNESS 07/03/2013 Patient Education: Patient Medication Summary Completed 07/03/2013 Visit Plan: Cipro and culture urine 05/27/2013 Appointment: Huong Osborne WPtel: [address] [place], [place] [phone] 05/26 confirmed appt and notified that balance and certified flex endoscope reprocessor y is due at appt time FOLLOW UP 05/27/2013 Patient Education: Patient Medication Summary Completed 05/27/2013 Appointment: Belia Reid WPtel: [address] [place], [place] [phone] [place] UA 05/25/2013 Patient Education: Patient Medication Summary Completed 05/25/2013 Appointment: Belia Reid WPtel: [address] [place], [place] [phone] [place] INJECTION 05/04/2013 Patient Education: Patient Medication Summary Completed 05/04/2013 Appointment: Belia Reid WPtel: [address] [place], [place] [phone] [place] INJECTION 04/17/2013 Patient Education: Patient Medication Summary Completed 04/17/2013 Appointment: Belia Reid WPtel: [address] [place], [place] [phone] [place] INJECTION 04/15/2013 Appointment: Belia Reid WPtel: [address] [place] [id number] [place] 04/02 vm FOLLOW UP 04/06/2013 Patient Education: Patient Medication Summary Completed 04/06/2013 Visit Plan: Obtain lab results including UA from [facility] 11/10/2012 Appointment: Belia Reid WPtel: [address] [place], [place] [phone] [place] ER Follow UP 11/10/2012 Patient Education: Patient Medication Summary Completed 11/10/2012 Appointment: Belia Reid WPtel: [address] [place] [address] 10/30/12 patient canceled appt due to fin ances. Offered to work something out, patient declined-LB FOLLOW UP 11/05/2012 Visit Plan: Continue Bystolic at current dose Pt has fwup with Neurology on September 16 09/02/2012 Appointment: Belia Reid WPtel: [address] [place] [address] FOLLOW UP 09/02/2012 Patient Education: Patient Medication Summary Completed 09/02/2012 Visit Plan: Continue bystolic at 5mg chris ly Sees Neurology tomorrow Use oxygen at bedtime 08/04/2012 Appointment: Belia Reid WPtel: [address] [place] [address] FOLLOW UP 08/04/2012 Patient Education: Patient Medication Summary Completed 08/04/2012 Appointment: Belia Reid WPtel: [address] [place] [address] Hospital fwup for 07/21/12. merged appointments FOLLOW UP 07/24/2012 Visit Plan: Start Bystolic 5mg daily for tachycardia Fwup with neurology for further workup Overnight O2 sat 07/21/2012 Appointment: Belia Reid WPtel: [address] [place] [address] Hospital Follow Up 07/21/2012 Patient Education: Patient Medication Summary Completed 07/21/2012 Visit Plan: SVN with Albuterol QID Add A velox 400mg daily Notify if worsens or persists 07/02/2012 Appointment: Belia Reid WPtel: [address] [place] [address] ACUTE ILLNESS 07/02/2012 Patient Education: Patient Medication Summary Completed 07/02/2012 Appointment: Bel[facility]el[facility] [phone] [id number] [place] [facility]JE[facility] 06/25/2012 Patient Education: Patient Medication Summary Completed 06/25/2012 Appointment: Belia Reid WPtel: [address] [place], [place] [phone] FOLLOW UP 06/24/2012 Patient Education: Patient Medication Summary Completed 06/24/2012 Appointment: Belia Reid WPtel: [address] [place] [id number] 05/19 left message FOLLOW UP 05/20/2012 Patient [...] TID 05/08/2012 Appointment: Belia Reid WPtel: [address] [place], [place] [phone] ACUTE ILLNESS 05/08/2012 Patient Education: Patient Medication Summary Completed 05/08/2012 Visit Plan: Continue current meds Contin ue lower dose on pain meds and Diazepam Still waiting on paperwork for botox for Migraines Will restart Neurontin at 600mg po q HS Pt going to stop Depakote due to can't afford 04/22/2012 Appointment: Belia Reidtel: [address] [place] [id number] 04/21 Hospital Follow Up 04/22/2012 Patient Education: Patient Medication Summary Completed 04/22/2012 Visit Plan: Injection to shoulder as abo ve Continue current meds Has appointment with neurology on HAs in 02/13/2012 Appointment: Belia Reid WPtel: [address] [place] [phone] [facility] will [facility] in next week. Kianna iqbal'ed this. - [place] FOLLOW UP 02/13/2012 Patient Education: Patient Medication Summary Completed 02/13/2012 Visit Plan: Proceed with headache specia list Change nexium to Protonix Phenergan to use prn Sumatriptan to use prn Pt still on Inderal 01/28/2012 Appointment: Belia Reidtel: [address] [place] [address] ER Follow UP 01/28/2012 Patient Education: Patient [...] sleep 12/26/2011 Appointment: Belia Reid WPtel: [address] [place] [address] 12/24- appt. confirmed FOLLOW UP 2 Patient Education: Patient Medication Summary Completed 12/26/2011 Appointment: Belia Reidtel: [address] [place] [address] [place] FOLLOW UP 11/14/2011 Patient Education: Patient Medication Summary Completed 11/14/2011 Appointment: Belia Reidtel: [address] [place] [address] [place] FOLLOW UP 09/12/2011 Patient Education: Patient Medication Summary Completed 09/12/2011 Visit Plan: Supportive care Decrease Liseth catalino to 50mg q HS Decrease AM dose of Valium to 5mg q HS Use Endocet sparingly 08/15/2011 Appointment: Belia Reidtel: [address] [place] [address] ER Follow UP 08/15/2011 Patient Education: Patient Medication Summary Completed 08/15/2011 Appointment: Belia Reidtel: [address] [place], [place] [phone] [place] Spoke directly to patient yesterday and confirmed the appoin tment. ACUTE ILLNESS 08/09/2011 Patient Education: Patient Medication Summary Completed 08/09/2011 Appointment: Belia Reid WPtel: [address] [place] [address] Hospital Follow Up 07/03/2011 Patient Education: Patient Medication Summary Completed 07/03/2011 Appointment: Belia Reid WPtel: [address] [place] [address] FOLLOW UP 06/04/2011 Patient Education: Patient Medication Summary Completed 06/04/2011 Visit Plan: Pt. wants "allergy shot" but in fact wants steroid shot. Will take a break from "generic Zyrtec they are getting from [facility]" and try Singulair for 2 weeks. 05/03/2011 Appointment: Iraida Jones WPtel: [address] [place] [address] ACUTE ILLNESS 05/03/2011 Patient Education: Patient Medication Summary Completed 05/03/2011 Visit Plan: Neurontin 400mg q HS for 1we ek then 800mg q HS Decrease requip to 1mg q HS for 2wks then stop Fwup 2mos 04/05/2011 Appointment: Belia Reid WPtel: [address] [place], [place] [phone] FOLLOW UP 04/05/2011 Patient Education: Patient Medication Summary Completed 04/05/2011 Visit Plan: Trial of neurontin in 2wks C ontinue current meds for stomach Pt has procedure with Dr. Ortiz next week for stone removal 03/08/2011 Appointment: Belia Reid WPtel: [address] [place], [place] [phone] Hospital Follow Up 03/08/2011 Patient Education: Patient Medication Summary Completed 03/08/2011 Appointment: Belia Reid WPtel: [address] [place] [address] FOLLOW UP 02/19/2011 Visit Plan: reports increased [...] with Flagyl 01/24/2011 Appointment: Iraida Jones WPtel: [address] [place] [address] ACUTE ILLNESS 01/24/2011 Patient Education: Patient Medication Summary Completed 01/24/2011 Appointment: Belia Reid WPtel: [address] [place] [address] FOLLOW UP 01/02/2011 Patient Education: Patient Medication Summary Completed 01/02/2011 Appointment: Belia Reid WPtel: [address] [place] [address] FOLLOW UP 12/12/2010 Appointment: Belia Reid WPtel: [address] [place] [address] ACUTE ILLNESS 12/07/2010 Patient Education: Patient Medication Summary Completed 12/07/2010 Visit Plan: Increase Buspar to 10mg po B ID 11/16/2010 Appointment: Belia Reid WPtel: [address] [place] [address] FOLLOW UP 11/16/2010 Patient Education: Patient Medication Summary Completed 11/16/2010 Appointment: Iraida Jones WPtel: [address] [place] [address] ER Follow UP 11/02/2010 Patient Education: Patient Medication Summary Completed 11/02/2010 Visit Plan: Depo-Medrol/Kenalog given fo r allergies Add BuSpar for anxiety Oxycodone one p.o. q.i.d. for number 120 refilled 10/18/2010 Appointment: Belia Reidtel: [address] [place] [address] FOLLOW UP 10/18/2010 Patient Education: Patient Medication Summary Completed 10/18/2010 Visit Plan: Continue current meds Discus sed epidurals for back vs PT--will proceed with epidurals to thoracolumbar region to see if helps with pain 09/19/2010 Appointment: Belia Reid WPtel: [address] [place] [address] FOLLOW UP 09/19/2010 Patient Education: Patient Medication Summary Completed 09/19/2010 Visit Plan: DC MS contin Check CT scan t horacic spine Fwup pending above results 09/06/2010 Appointment: Belia Reidtel: [address] [place] [address] FOLLOW UP 09/06/2010 Patient Education: Patient Medication Summary Completed 09/06/2010 Visit Plan: Continue current meds Restar t MS contin 15mg po BID and use oxycodone prn Use daily senokot-s 2 po BID 08/10/2010 Appointment: Belia Reidtel: [address] [place] [address] [place] FOLLOW UP 08/10/2010 Patient Education: Patient Medication Summary Completed 08/10/2010 Visit Plan: Depomedrol/Kenalog given Pt sees ENT later this month Cont current meds Mammo scheduled 05/11/2010 Appointment: Belia Reidtel: [address] [place], [place] [phone] [place] FOLLOW UP 05/11/2010 Patient Education: Patient Medication Summary Completed 05/11/2010 Appointment: Belia Reidtel: [address] [place], [place] [phone] UA 05/04/2010 Patient Education: Patient Medication Summary Completed 05/04/2010 Visit Plan: Pt sent to lab for UA 04/28/2010 Appointment: Belia Reidtel: [address] [place], [place] [phone] [facility] 04/28/2010 Patient Education: Patient Medication Summary Completed 04/28/2010 Visit Plan: Check CT angiogram of chest Restart Advair Use proair prn Cont current meds Fwup with Card as schedulec 04/06/2010 Appointment: Belia Reid WPtel: [address] [place] [address] Follow Up 04/06/2010 Patient Education: Patient Medication Summary Completed 04/06/2010 Visit Plan: Paperwork filled out for pow erchair Depomedrol/kenalog given Pt sees ENT in 2wks to assess nasal obstruction problems 02/09/2010 Appointment: Belia Reidtel: [address] [place] [address] ESTABLISHED PATIENT 02/09/2010 Patient Education: Patient Medication Summary Completed 02/09/2010 Visit Plan: Change Elavil to Trazadone 1 50mg q HS Diflucan and nystatin for tinea cruris 01/05/2010 Appointment: Belia Reidtel: [address] [place] [address] FOLLOW UP 01/05/2010 Patient Education: Patient Medication Summary Completed 01/05/2010 Appointment: Belia Reidtel: [address] [place], [place] [phone] FOLLOW UP 12/07/2009 Patient Education: Patient Medication Summary Completed 12/07/2009 Appointment: Belia Reid WPtel: [address] [place], [place] [phone] FOLLOW UP 11/22/2009 Visit Plan: Cont current meds and await MRI results from Dr. Meadows's office and his final recommendations Will need to follow-up at later date on deviated septum 11/08/2009 Appointment: Belia Reid WPtel: [address] [place], [place] [phone] FOLLOW UP 11/08/2009 Patient Education: Patient Medication Summary Completed 11/08/2009 Visit Plan: Cont PT/OT See Neurosurgery Cont Dwain arora 10/24/2009 Appointment: Belia Reid WPtel: [address] [place], [place] [phone] FOLLOW UP 10/24/2009 Patient Education: Patient Medication Summary Completed 10/24/2009 Appointment: Belia Reid WPtel: [address] [place], [place] [phone] [facility] Follow Up 10/17/2009 Appointment: Belia Reid WPtel: [address] [place], [place] [phone] ACUTE ILLNESS 07/25/2009 Patient Education: Patient Medication Summary Completed 07/25/2009 Appointment: Belia Reid WPtel: [address] [place] [phone] FOLLOW UP 05/26/2009 Patient Education: Patient Medication Summary Completed 05/26/2009 Referral: Chino Balderas WPtel: [facility] [place] [address] [place] Referral Initiated Referral: Merry Vale WPtel: [facility] [id number] Vale will review referral and book appointment Completed Referral: Francisco Javier Yoder WPtel: [address] [id number] [place] Patient needs EGD insurance will not inc rease a medication unless this procedure results show a need Completed Referral: Francisco Javier Yoder WPtel: [address] [place] [address] [place] Referral Historical Reference Referral: Francisco Javier Yoder WPtel: [address] [id number] [place] Referral Initiated Instructions Comment . 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 Long discussion [...] from "generic Zyrtec they are getting from [facility]" and try Singulair for 2 weeks. . [...]
--- OUTSIDE RECORDS SUMMARY | 2019-08-27 07:51 | XMS REPORT | CCD ---
Author Author Diana Reid D.O. Organization 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 Transformer Shop Supervisor Name Role Phone Belia Reid D.O., PP Unavailable CCM Unavailable Summary Purpose Interface Exchange Insurance Providers Payer name Policy type / Coverage type Covered democrat ID Effective Begin Date Effective End Date [employer] MEDICARE Medicare Part B [id number] 2019 Unknown Family History Family History data not found Social History Social History Element Codes Description Effective Dates Tobacco history SNOMED CT: 117555091 Nonsmoker 09/13/2010 Allergies, Adverse Reactions, Alerts Substance Reaction Codes Entered Date Inactivated Date Status Eggs reaction 15162202 09/15/2015 No Inactive Date Active _ Unknown 01/07/2019 No Inactive Date Active PENICILLINS Unknown 01/07/2019 No Inactive Date Active SULFA (SULFONAMIDES) rash Unknown 11/02/2010 No Inactive Mike e Active Problems Condition Codes Effective Dates Condition Status LION (obstructive sleep apnea) ICD-9: 327.23 ICD-10: [...] Date Active Ativan 0.5 mg tablet RxNorm: 016083 1 Tablet(s) Oral th ree times a day for anxiety/shortness of air/stridor 07/29/2019 08/27/2019 Active Singulair 10 mg tablet RxNorm: 351924 1 Tablet(s) Oral QPM 07/29/1901/25/2020 Active diltiazem CD 240 mg capsule,extended release 24 hr RxNorm: 8 93431 1 Capsule(s) Oral QD 07/15/2019 01/10/2020 Active metoprolol tartrate 50 mg tablet RxNorm: 786926 1 Table t(s) Oral two times a day 07/06/2019 No Stop Date Active Novolin N NPH U-100 Insulin isophane 100 unit/mL subcu taneous susp RxNorm: 094625 25 Unit(s) Subcutaneous two times a day 07/06/2019 07/06/2019 I nactive Colestid 1 gram tablet RxNorm: 6194781 1 Tablet(s) Oral two times a day for diarrhea 07/06/2019 09/04/2019 Active pramipexole 1 mg tablet RxNorm: 344574 1 Tablet(s) Oral QPM FOR RESTLESS LEGS (REPLACES REQUIP) 06/25/2019 06/19/2020 Active hydroxyzine HCl 25 mg tablet RxNorm: 829498 1 Tablet(s) Oral QPM for itching/aniety 06/25/2019 09/23/2019 Active Ativan 0.5 mg tablet RxNorm: 697614 1 Tablet(s) Oral th ree times a day for anxiety/shortness of air/stridor 06/25/2019 07/25/2019 Inactive Levaquin 500 mg tablet RxNorm: 161539 1 Tablet(s) Oral QD 06/16/2019 06/23/2019 Inactive Flagyl 500 mg tablet RxNorm: 390341 1 Tablet(s) Oral three time s a day 06/16/2019 06/23/2019 Inactive Vancocin 125 mg capsule RxNorm: 922856 1 Capsule(s) Oral four t imes a day 06/08/2019 06/18/2019 Inactive omeprazole 40 mg capsule,delayed release RxNorm: 866685 1 Capsule(s) Oral two times a day 05/26/2019 11/21/2019 Active Flagyl 500 mg tablet RxNorm: 606002 1 Tablet(s) Oral three time s a day 05/26/2019 06/05/2019 Inactive diltiazem CD 240 mg capsule,extended release 24 hr RxNorm: 8 40013 1 Capsule(s) Oral QD 05/26/2019 07/14/2019 Inactive Cipro 250 mg tablet RxNorm: 660991 1 Tablet(s) Oral two times a day 05/26/2019 06/02/2019 Inactive hydroxyzine HCl 25 mg tablet RxNorm: 635919 1 Tablet(s) Oral QPM for itching/aniety 05/21/2019 06/24/2019 Inactive metoprolol tartrate 25 mg tablet RxNorm: 060493 1 Table t(s) Oral two times a day 05/21/2019 07/05/2019 Inactive hydroxyzine HCl 25 mg tablet RxNorm: 367262 1 Tablet(s) Oral QPM for itching/aniety 05/13/2019 05/20/2019 Inactive Singulair 10 mg tablet RxNorm: 599448 1 Tablet(s) Oral QPM 05/06/19 20 05/12/2019 Inactive gabapentin 600 mg tablet RxNorm: 679576 1 Tablet(s) Oral QD 020 06/05/2019 Inactive Valium 5 mg tablet RxNorm: 804177 1 Tablet(s) Oral QPM for stri joao/muscle spasm 04/29/2019 06/24/2019 Inactive baclofen 10 mg tablet RxNorm: 797683 1 Tablet(s) Oral QPM for s pasm/neck pain 04/24/2019 05/23/2019 Inactive baclofen 10 mg tablet RxNorm: 637863 1 Tablet(s) Oral QPM for s pasm/neck pain 04/24/2019 04/23/2019 Inactive Novolin N NPH U-100 Insulin isophane 100 unit/mL subcu taneous susp RxNorm: 987616 23 Unit(s) Subcutaneous two times a day 04/20/2019 07/05/2019 I nactive cyclobenzaprine 5 mg tablet RxNorm: 661194 1 Tablet(s) Oral three times a day as needed 04/16/2019 04/23/2019 Inactive hydroxyzine HCl 25 mg tablet RxNorm: 133771 1 Tablet(s) Oral three times a day for itching/aniety 04/08/2019 05/12/2019 Inactive gabapentin 600 mg tablet RxNorm: 016414 1 Tablet(s) Oral two ti mes a day 04/08/2019 05/05/2019 Inactive gabapentin 600 mg tablet RxNorm: 818455 1 Tablet(s) Oral two ti mes a day 04/08/2019 04/07/2019 Inactive Novolin N NPH U-100 Insulin isophane 100 unit/mL subcu taneous susp RxNorm: 603951 10 Unit(s) Subcutaneous two times a day 03/03/2019 04/19/2019 I nactive gabapentin 300 mg capsule RxNorm: 502794 1 Capsule(s) O ral every night at bedtime for neuropathy 02/26/2019 04/07/2019 Inactive gabapentin 300 mg capsule RxNorm: 124800 1 Capsule(s) O ral every night at bedtime for neuropathy 02/20/2019 02/25/2019 Inactive buspirone 5 mg tablet RxNorm: 131709 TAKE 1 TABLET THREE TIMES MILDRED Y 02/12/2019 05/12/2019 Inactive pramipexole 1 mg tablet RxNorm: 935657 1 Tablet(s) Oral QPM FOR RESTLESS LEGS (REPLACES REQUIP) 02/12/2019 06/24/2019 Inactive Lexapro 10 mg tablet RxNorm: 682945 TAKE 1 TABLET EVERY DAY FOR MOO D 01/31/2019 No Stop Date Active Ativan 0.5 mg tablet RxNorm: 964700 TAKE 1 TABLET BY MO UT THREE TIMES DAILY NEEDED FOR ANXIETY 01/26/2019 04/28/2019 Inactive Ativan 0.5 mg tablet RxNorm: 332941 TAKE 1 TABLET BY MO UT THREE TIMES DAILY NEEDED FOR ANXIETY 01/05/2019 01/05/2019 Inactive Levaquin 500 mg tablet RxNorm: 848409 1 Tablet(s) Oral QD 12/25/2018 12/24/2018 Inactive Levaquin 500 mg tablet RxNorm: 162433 1 Tablet(s) Oral QD 12/25/2018 01/04/2019 Inactive baclofen 10 mg tablet RxNorm: 699646 1 Tablet(s) Oral three maico es a day 11/20/2018 01/19/2019 Inactive Ativan 0.5 mg tablet RxNorm: 906732 TAKE 1 TABLET BY [facility] THREE TIMES DAILY NEEDED FOR ANXIETY 11/20/2018 01/04/2019 Inactive gabapentin 300 mg capsule RxNorm: 250893 1 Capsule(s) O ral every night at bedtime for neuropathy 11/20/2018 12/20/2018 Inactive Lexapro 10 mg tablet RxNorm: 023958 1 Tablet(s) PO QD for mood 07/201801/30/2019 Inactive Zithromax Z-Lj 250 mg tablet RxNorm: 491038 Tablet(s) PO take as directed 11/04/2018 11/19/2018 Inactive Insulin Syringe 1 mL 29 gauge x 1/2" RxNorm: 2 s yringes daily with insulin Dx: E11.65 10/08/2018 08/11/2019 Inactive gabapentin 300 mg capsule RxNorm: 259558 1 Capsule(s) PO QHS fo r neuropathy 09/18/2018 10/17/2018 Inactive cyclobenzaprine 5 mg tablet RxNorm: 230857 1 Tablet(s) PO TID a s needed 09/09/2018 09/08/2018 Inactive cyclobenzaprine 5 mg tablet RxNorm: 911140 1 Tablet(s) PO TID a s needed 09/09/2018 10/08/2018 Inactive prednisone 20 mg tablet RxNorm: 201351 1 Tablet(s) PO QD 09/08/2018 0 09/12/2018 Inactive Lantus Solostar U-100 Insulin 100 unit/mL (3 mL) subcu taneous pen RxNorm: 929760 55 Unit(s) SQ QAM 08/28/2018 11/03/2018 Inactive hydroxyzine HCl 25 mg tablet RxNorm: 604767 1 Tablet(s) PO QHS for itching 08/20/2018 05/12/2019 Inactive Lexapro 10 mg tablet RxNorm: 783705 1 Tablet(s) PO QD for mood 08/0210/18/2018 Inactive sumatriptan 100 mg tablet RxNorm: 274290 1 Tablet(s) PO at headache onset. May repeat 1 in two hours if headache remains. Max of 2 per 24 hours 04/02/2018 05/20/2018 Inactive Diflucan 150 mg tablet RxNorm: 092373 1 Tablet(s) PO QD 03/18/2018 Inactive Diflucan 150 mg tablet RxNorm: 399203 1 Tablet(s) PO QD 03/18/2018 Inactive Flagyl 500 mg tablet RxNorm: 152537 1 Tablet(s) PO TID 03/17/2018 Inactive Levaquin 500 mg tablet RxNorm: 041463 1 Tablet(s) PO QD 03/17/2018 Inactive Levaquin 500 mg tablet RxNorm: 286445 1 Tablet(s) PO QD 03/17/2018 Inactive Flagyl 500 mg tablet RxNorm: 140809 1 Tablet(s) PO TID 03/17/2018 Inactive ketoconazole 200 mg tablet RxNorm: 867230 1 Tablet(s) PO QD 019 03/19/2018 Inactive Celebrex 200 mg capsule RxNorm: 759508 1 Capsule(s) PO BID 02/06/20 18 05/20/2018 Inactive tramadol 50 mg tablet RxNorm: 007373 1 Tablet(s) PO TID as needed 1 04/08/2017 05/20/2018 Inactive gabapentin 300 mg capsule RxNorm: 147740 1 Capsule(s) PO BID 201705/20/2018 Inactive Diflucan 150 mg tablet RxNorm: 820589 1 Tablet(s) PO QD 01/20/2018 Inactive pramipexole 1 mg tablet RxNorm: 715034 1 Tablet(s) PO Q PM FOR RESTLESS LEGS (REPLACES REQUIP) 01/08/2018 02/11/2019 Inactive cyclobenzaprine 10 mg tablet RxNorm: 521204 1 Tablet(s) PO TID as needed for muscle spasm 12/17/2017 05/20/2018 Inactive pramipexole 1 mg tablet RxNorm: 062563 TAKE 1 TABLET BY MOUTH ONCE DAILY IN THE EVENING FOR RESTLESS LEGS (REPLACES REQUIP) 12/04/2017 01/05/2018 Inac tive Amaryl 4 mg tablet RxNorm: 075609 1 Tablet(s) PO BID replaces 2mg 0 11/05/2017 12/16/2017 Inactive Singulair 10 mg tablet RxNorm: 346133 1 Tablet(s) PO QHS for al lergies/lungs 10/30/2017 12/16/2017 Inactive Diflucan 100 mg tablet RxNorm: 543551 1 Tablet(s) PO QD 10/23/2017 Inactive Ativan 0.5 mg tablet RxNorm: 513601 TAKE 1 TABLET BY MOUTH THRE E TIMES DAILY 08/30/2017 11/20/2018 Inactive buspirone 5 mg tablet RxNorm: 581846 1 Tablet(s) PO TID 07/11/2017 Inactive propranolol 60 mg tablet RxNorm: 820397 1 Tablet(s) PO BID repl aces 40mg dose 06/26/2017 12/16/2017 Inactive Amaryl 4 mg tablet RxNorm: 842368 1 Tablet(s) PO BID replaces 2mg 0 06/12/2017 11/05/2017 Inactive omeprazole 40 mg capsule,delayed release RxNorm: 913517 1 Capsule(s) PO BID TAKE ONE CAPSULE BY MOUTH TWICE DAILY 05/30/2017 11/25/2017 Inactive pramipexole 1 mg tablet RxNorm: 246859 1 Tablet(s) PO Q PM for restless legs--replaces requip 05/30/2017 11/25/2017 Inactive amitriptyline 50 mg tablet RxNorm: 123942 1 Tablet(s) PO QHS 201709/16/2017 Inactive Diflucan 100 mg tablet RxNorm: 632864 1 Tablet(s) PO BID 05/07/2017 0 05/20/2017 Inactive nystatin (bulk) 100 million unit powder RxNorm: Application TO P BID 05/07/2017 05/20/2018 Inactive cholestyramine (with sugar) 4 gram oral powder RxNorm: 513509 1 Unit Dose PO QD 05/07/2017 01/20/2018 Inactive Ativan 0.5 mg tablet RxNorm: 056237 TAKE ONE TABLET BY MOUTH TH REE TIMES DAILY 05/01/2017 09/02/2017 Inactive Trulicity 1.5 mg/0.5 mL subcutaneous pen injector RxNorm: 15 13240 1 Unit Dose SQ WEEKLY 02/22/2017 03/23/2017 Inactive doxycycline hyclate 100 mg capsule RxNorm: 3111172 1 Capsule(s) PO BID 01/23/2017 02/05/2017 Inactive Amaryl 4 mg tablet RxNorm: 303863 1 Tablet(s) PO BID replaces 2mg 1 03/25/2016 05/22/2017 Inactive magnesium oxide 400 mg capsule RxNorm: 547265 1 Capsule(s) PO QD 07/18/2017 Inactive Ativan 0.5 mg tablet RxNorm: 748421 TAKE ONE TABLET BY MOUTH TH REE TIMES DAILY 01/17/2017 05/01/2017 Inactive Amaryl 2 mg tablet RxNorm: 462678 1 Tablet(s) PO BID 12/27/201601/22 Inactive Amaryl 2 mg tablet RxNorm: 025117 1 Tablet(s) PO BID 12/26/201612/26 Inactive Ativan 0.5 mg tablet RxNorm: 809932 TAKE ONE TABLET BY MOUTH TH REE TIMES DAILY 12/05/2016 01/18/2017 Inactive pramipexole 1 mg tablet RxNorm: 679099 1 Tablet(s) PO Q PM for restless legs--replaces requip 11/26/2016 05/30/2017 Inactive Mobic 15 mg tablet RxNorm: 082718 1 Tablet(s) PO QD 10/08/20162016 Inactive cyclobenzaprine 5 mg tablet RxNorm: 137918 1/2- 1 Tablet(s) PO TID 10/08/2016 10/17/2016 Inactive Ativan 0.5 mg tablet RxNorm: 665250 1 Tablet(s) PO TID 09/20/201607/2016 Inactive amitriptyline 50 mg tablet RxNorm: 408576 1 Tablet(s) PO QHS 201605/30/2017 Inactive propranolol 60 mg tablet RxNorm: 626778 1 Tablet(s) PO BID repl aces 40mg dose 09/19/2016 06/26/2017 Inactive Ativan 0.5 mg tablet RxNorm: 902224 1 Tablet(s) PO TID 08/20/2016 Inactive omeprazole 40 mg capsule,delayed release RxNorm: 417555 1 Capsule(s) PO BID TAKE ONE CAPSULE BY MOUTH TWICE DAILY 08/20/2016 05/30/2017 Inactive amitriptyline 50 mg tablet RxNorm: 792487 1 Tablet(s) PO QHS 201609/18/2016 Inactive pramipexole 1 mg tablet RxNorm: 604403 1 Tablet(s) PO Q PM for restless legs--replaces requip 07/23/2016 11/25/2016 Inactive Amaryl 2 mg tablet RxNorm: 475752 1 Tablet(s) PO BID 07/23/201612/27 Inactive propranolol 40 mg tablet RxNorm: 800238 1 Tablet(s) PO BID 07/13/19 17 09/18/2016 Inactive Ativan 0.5 mg tablet RxNorm: 156293 1 Tablet(s) PO QID 06/19/2016 Inactive Amaryl 2 mg tablet RxNorm: 511655 1 Tablet(s) PO BID 06/19/201607/22 Inactive Ativan 0.5 mg tablet RxNorm: 847936 1 Tablet(s) PO QID 06/19/2016 Inactive buspirone 5 mg tablet RxNorm: 914696 1 Tablet(s) PO TID 06/19/2016 Inactive Ativan 0.5 mg tablet RxNorm: 714063 1 Tablet(s) PO BID 05/24/2016 Inactive buspirone 5 mg tablet RxNorm: 701524 1 Tablet(s) PO TID 05/23/2016 Inactive Macrobid 100 mg capsule RxNorm: 873561 1 Capsule(s) PO QOD 05/03/19 17 10/07/2016 Inactive pramipexole 1 mg tablet RxNorm: 002317 Tablet(s) 1 Tabl et(s) PO QPM for restless legs--replaces requip 04/26/2016 06/24/2016 Inactive propranolol 40 mg tablet RxNorm: 551419 TAKE ONE TABLET BY MOUT H TWICE DAILY 04/26/2016 06/24/2016 Inactive Detrol LA 4 mg capsule,extended release RxNorm: 261494 1 Capsul e(s) PO QHS 04/03/2016 05/02/2016 Inactive prednisone 20 mg tablet RxNorm: 282766 1 Tablet(s) PO QD 02/29/2016 0 03/04/2016 Inactive Actos 30 mg tablet RxNorm: 861061 TAKE ONE TABLET BY MOUTH ONCE DAILY 02/27/2016 12/19/2016 Inactive clindamycin 300 mg capsule RxNorm: 294287 1 Capsule(s) PO TID 02/0102/08/2016 Inactive Flagyl 500 mg tablet RxNorm: 796702 1 Tablet(s) PO BID 02/02/201609/2015 Inactive omeprazole 40 mg capsule,delayed release RxNorm: 180749 TAKE ONE CAPSULE BY MOUTH TWICE DAILY 01/15/2016 07/12/2016 Inactive gabapentin 300 mg capsule RxNorm: 863413 1 Capsule(s) PO QAM an d 2 po q HS 01/05/2016 06/18/2016 Inactive gabapentin 300 mg capsule RxNorm: 920723 1 Capsule(s) P O BID 1 Capsule(s) PO QHS 12/05/2015 01/04/2016 Inactive cyclobenzaprine 10 mg tablet RxNorm: 710402 1 Tablet(s) PO TID for spasm as needed for muscle spasm 12/05/2015 06/18/2016 Inactive ciprofloxacin 250 mg tablet RxNorm: 203790 1 Tablet(s) PO BID 12/0412/14/2015 Inactive pramipexole 1 mg tablet RxNorm: 683268 Tablet(s) 1 Tabl et(s) PO QPM for restless legs--replaces requip 11/07/2015 11/26/2016 Inactive Januvia 100 mg tablet RxNorm: 086113 1 Tablet(s) PO QD 10/26/201504/2015 Inactive propranolol 40 mg tablet RxNorm: 280214 TAKE ONE TABLET BY MOUT H TWICE DAILY 10/25/2015 04/21/2016 Inactive gabapentin 300 mg capsule RxNorm: 666141 1 Capsule(s) PO QHS 201512/04/2015 Inactive Cipro 500 mg tablet RxNorm: 472098 1 Tablet(s) PO BID 10/05/201511/2015 Inactive pramipexole 1 mg tablet RxNorm: 290024 Tablet(s) 1 Tabl et(s) PO QPM for restless legs--replaces requip 10/04/2015 11/02/2015 Inactive propranolol 40 mg tablet RxNorm: 985984 TAKE ONE TABLET BY MOUT H TWICE DAILY 09/26/2015 10/24/2015 Inactive Amaryl 2 mg tablet RxNorm: 054093 1 Tablet(s) PO QD 09/15/20152016 Inactive gabapentin 300 mg capsule RxNorm: 562590 1 Capsule(s) PO QHS 201510/14/2015 Inactive buspirone 5 mg tablet RxNorm: 979087 1 Tablet(s) PO TID 09/15/2015 Inactive pramipexole 1 mg tablet RxNorm: 662516 Tablet(s) 1 Tabl et(s) PO QPM for restless legs--replaces requip 09/08/2015 10/03/2015 Inactive pramipexole 1 mg tablet RxNorm: 977247 1 Tablet(s) PO Q PM for restless legs--replaces requip 08/08/2015 09/08/2015 Inactive Amaryl 2 mg tablet RxNorm: 484435 1 Tablet(s) PO QD 07/07/20152015 Inactive pramipexole 1 mg tablet RxNorm: 760198 1 Tablet(s) PO Q PM for restless legs--replaces requip 07/05/2015 08/03/2015 Inactive ropinirole 2 mg tablet RxNorm: 178297 TAKE ONE TABLET BY MOUTH TWICE DAILY 05/09/2015 09/14/2015 Inactive Diflucan 100 mg tablet RxNorm: 238350 1 Tablet(s) PO QD 03/30/2015 Inactive propranolol 40 mg tablet RxNorm: 571579 1 Tablet(s) PO BID 02/24/20 15 08/21/2015 Inactive [SAVINGS FOR UNINSURED PATIE NTS -- BIN:807019, PCN: ASPROD1, Group: AME08, ID# [id number], Process claim through [employer], for questions: . THIS IS NOT INSURANCE.] Flagyl 500 mg tablet RxNorm: 907278 1 Tablet(s) PO BID 02/03/201502/2015 Inactive Cipro 500 mg tablet RxNorm: 114586 1 Tablet(s) PO BID 02/03/201502/01 Inactive Carafate 1 gram tablet RxNorm: 802684 1 Tablet(s) PO QID make i nto slurry 02/03/2015 09/14/2015 Inactive ondansetron HCl 4 mg tablet RxNorm: 400859 1 Tablet(s) PO Q4H as needed for nausea 12/29/2014 01/04/2016 Inactive Diflucan 100 mg tablet RxNorm: 369384 1 Tablet(s) PO QD 12/29/2014 Inactive Keflex 500 mg capsule RxNorm: 462261 1 Capsule(s) PO TID 12/29/2014 1 03/09/2014 Inactive omeprazole 40 mg capsule,delayed release RxNorm: 711317 1 Capsu le(s) PO BID 12/27/2014 12/21/2015 Inactive [SAVINGS FOR UNINSUR ED PATIENTS -- BIN:635732, PCN: ASPROD1, Group: AME08, ID# [id number], Process claim through [employer], for questions: . THIS IS NOT INSURANCE.] ropinirole 2 mg tablet RxNorm: 246036 1 Tablet(s) PO BID 09/29/2014 0 03/27/2015 Inactive [SAVINGS FOR UNINSURED PATIENTS -- BIN:0 22696, PCN: ASPROD1, Group: AME08, ID# [id number], Process claim through [employer], for questions: . THIS IS NOT INSURANCE.] buspirone 5 mg tablet RxNorm: 314965 1 Tablet(s) PO TID 09/17/2014 Inactive ropinirole 2 mg tablet RxNorm: 525453 1 Tablet(s) PO BID 09/02/2014 0 09/28/2014 Inactive [SAVINGS FOR UNINSURED PATIENTS -- BIN:0 82161, PCN: ASPROD1, Group: AME08, ID# [id number], Process claim through [employer], for questions: . THIS IS NOT INSURANCE.] Zyrtec 10 mg tablet RxNorm: 3990083 1 Tablet(s) PO QD 09/02/201412/02 Inactive propranolol 40 mg tablet RxNorm: 030019 1 Tablet(s) PO BID 07/21/19 15 02/23/2015 Inactive [SAVINGS FOR UNINSURED PATIE NTS -- BIN:149596, PCN: ASPROD1, Group: AME08, ID# [id number], Process claim through [employer], for questions: . THIS IS NOT INSURANCE.] ropinirole 2 mg tablet RxNorm: 011790 1 Tablet(s) PO QHS 05/14/2014 0 09/01/2014 Inactive [SAVINGS FOR UNINSURED PATIENTS -- BIN:0 83708, PCN: ASPROD1, Group: AME08, ID# [id number], Process claim through [employer], for questions: . THIS IS NOT INSURANCE.] cyclobenzaprine 10 mg tablet RxNorm: 746477 1 Tablet(s) PO QHS for spasm 04/06/2014 09/01/2014 Inactive ipratropium-albuterol 0.5 mg-3 mg(2.5 mg base)/3 mL ne bulization soln RxNorm: 4981275 1 Unit Dose INH Q4H 03/16/2014 No Stop Date Active [SAVINGS FOR UNINSURED PATIENTS -- BIN:718375, PCN: ASPROD1, Group: AME08, ID# [id number], Process claim through [employer], for questions: . THIS IS NOT INSURANCE.] prednisone 20 mg tablet RxNorm: 196565 1 Tablet(s) PO BID 03/09/2014 03/15/2014 Inactive [SAVINGS FOR UNINSURED PATIENTS -- BIN:0 83076, PCN: ASPROD1, Group: AME08, ID# [id number], Process claim through [employer], for questions: . THIS IS NOT INSURANCE.] ipratropium-albuterol 0.5 mg-3 mg(2.5 mg base)/3 mL ne bulization soln RxNorm: 2238103 1 Unit Dose INH Q4H 03/09/2014 03/15/2014 Inactive [SAVINGS FOR UNINSURED PATIENTS -- BIN:685184, PCN: ASPROD1, Group: AME08, ID# [id number], Process claim through [employer], for questions: . THIS IS NOT INSURANCE.] Levaquin 500 mg tablet RxNorm: 928478 1 Tablet(s) PO QD 03/09/2014 Inactive [SAVINGS FOR UNINSURED PATIENTS -- BIN:0 34185, PCN: ASPROD1, Group: AME08, ID# [id number], Process claim through [employer], for questions: . THIS IS NOT INSURANCE.] Carafate 1 gram tablet RxNorm: 125354 1 Tablet(s) PO AC & HS ma ke into slurry 02/09/2014 09/01/2014 Inactive [SAVINGS FOR UNINSUR ED PATIENTS -- BIN:827293, PCN: ASPROD1, Group: AME08, ID# [id number], Process claim through [employer], for questions: . THIS IS NOT INSURANCE.] Fioricet 50 mg-300 mg-40 mg capsule RxNorm: 6795536 1-2 Capsule(s) PO Q4H as needed for headache --max of 6 a day 02/09/2014 09/01/2014 Inactive [SAVINGS FOR UNINSURED PATIENTS -- BIN:512371, PCN: ASPROD1, Group: AME08, ID# [id number], Process claim through [employer], for questions: . THIS IS NOT INSURANCE.] propranolol 40 mg tablet RxNorm: 243437 1 Tablet(s) PO BID 12/08/19 14 06/04/2014 Inactive [SAVINGS FOR UNINSURED PATIE NTS -- BIN:839707, PCN: ASPROD1, Group: AME08, ID# [id number], Process claim through [employer], for questions: . THIS IS NOT INSURANCE.] buspirone 5 mg tablet RxNorm: 975230 1 Tablet(s) PO TID 12/02/2013 Inactive omeprazole 40 mg capsule,delayed release RxNorm: 136452 1 Capsu le(s) PO BID 11/25/2013 11/19/2014 Inactive [SAVINGS FOR UNINSUR ED PATIENTS -- BIN:390975, PCN: ASPROD1, Group: AME08, ID# [id number], Process claim through [employer], for questions: . THIS IS NOT INSURANCE.] ropinirole 2 mg tablet RxNorm: 989976 1 Tablet(s) PO QHS 11/10/2013 0 05/08/2014 Inactive [SAVINGS FOR UNINSURED PATIENTS -- BIN:0 97636, PCN: ASPROD1, Group: AME08, ID# [id number], Process claim through [employer], for questions: . THIS IS NOT INSURANCE.] Cipro 500 mg tablet RxNorm: 237299 1 Tablet(s) PO BID 10/21/201312/03 Inactive [SAVINGS FOR UNINSURED PATIENTS -- BIN:0 97659, PCN: ASPROD1, Group: AME08, ID# [id number], Process claim through [employer], for questions: . THIS IS NOT INSURANCE.] hydroxyzine HCl 25 mg tablet RxNorm: 162747 1 Tablet(s) PO Q4-6 H as needed 10/05/2013 01/04/2016 Inactive [SAVINGS FOR UNINSUR ED PATIENTS -- BIN:792463, PCN: ASPROD1, Group: AME08, ID# [id number], Process claim through [employer], for questions: . THIS IS NOT INSURANCE.] triamcinolone acetonide 0.1 % topical cream RxNorm: 9573781 Appl ication TOP BID 10/05/2013 09/01/2014 Inactive [SAVINGS FOR UNINSUR ED PATIENTS -- BIN:473419, PCN: ASPROD1, Group: AME08, ID# [id number], Process claim through [employer], for questions: . THIS IS NOT INSURANCE.] albuterol sulfate HFA 90 mcg/actuation aerosol inhaler RxNor m: 6333547 2 Puff(s) INH Q4H as needed for cough 10/01/2013 12/22/2013 Inactive [MAKSIM INGS FOR UNINSURED PATIENTS -- BIN:517837, PCN: ASPROD1, Group: AME08, ID# [id number], Process claim through [employer], for questions: . THIS IS NOT INSURANCE.] propranolol 40 mg tablet RxNorm: 736841 1 Tablet(s) PO BID 09/02/19 14 11/29/2013 Inactive [SAVINGS FOR UNINSURED PATIE NTS -- BIN:661700, PCN: ASPROD1, Group: AME08, ID# [id number], Process claim through [employer], for questions: . THIS IS NOT INSURANCE.] propranolol 40 mg tablet RxNorm: 882871 1 Tablet(s) PO BID 08/05/19 14 08/31/2013 Inactive [SAVINGS FOR UNINSURED PATIE NTS -- BIN:678137, PCN: ASPROD1, Group: AME08, ID# [id number], Process claim through [employer], for questions: . THIS IS NOT INSURANCE.] Toprol XL 50 mg tablet,extended release RxNorm: 586964 1 Tablet (s) PO QHS 07/23/2013 08/03/2013 Inactive Macrobid 100 mg capsule RxNorm: 081802 1 Capsule(s) PO BID 07/04/19 14 07/09/2013 Inactive Toprol XL 50 mg tablet,extended release RxNorm: 661791 1 Tablet (s) PO QHS 05/28/2013 06/26/2013 Inactive ciprofloxacin 500 mg tablet RxNorm: 469250 1 Tablet(s) PO BID 05/2706/02/2013 Inactive Bystolic 5 mg tablet RxNorm: 961665 1 Tablet(s) PO QD 05/27/201305/03 Inactive ropinirole 2 mg tablet RxNorm: 714252 1 Tablet(s) PO QHS 04/22/2013 0 11/09/2013 Inactive Cipro 250 mg tablet RxNorm: 448185 1 Tablet(s) PO BID 04/06/201311/2013 Inactive ropinirole 2 mg tablet RxNorm: 070631 1 Tablet(s) PO QHS 02/17/2013 0 04/21/2013 Inactive Amaryl 2 mg tablet RxNorm: 449536 1 Tablet(s) PO QAM 11/11/201211/10 Inactive Amaryl 2 mg tablet RxNorm: 712884 1 Tablet(s) PO QAM 11/11/201204/05 Inactive omeprazole 40 mg capsule,delayed release RxNorm: 014068 1 Capsu le(s) PO BID 08/14/2012 08/08/2013 Inactive Bystolic 5 mg tablet RxNorm: 578850 1 Tablet(s) PO QD 08/14/201205/03 Inactive propranolol 60 mg tablet RxNorm: 161830 Tablet(s) PO TAKE 1 TAB LET TWICE DAILY 08/01/2012 09/01/2012 Inactive Bystolic 5 mg tablet RxNorm: 119849 1 Tablet(s) PO QD 07/21/201207/02 Inactive Bystolic 5 mg tablet RxNorm: 827229 1 Tablet(s) PO QD 07/21/201207/03 Inactive Prilosec 40 mg capsule,delayed release RxNorm: 759813 1 Capsule (s) PO BID 06/24/2012 07/21/2012 Inactive buspirone 10 mg tablet RxNorm: 795734 1 Tablet(s) PO TID 05/08/2012 0 05/23/2016 Inactive Valium 10 mg tablet RxNorm: 373411 1 Tablet(s) PO BID 04/02/201207/03 Inactive Endocet 10 mg-325 mg tablet RxNorm: 2206167 1 Tablet(s) PO QID 03/0607/21/2012 Inactive as needed for severe pain Valium 10 mg tablet RxNorm: 697138 1 Tablet(s) PO BID 02/27/2012 No S top Date Active Endocet 10 mg-325 mg tablet RxNorm: 6910192 1 Tablet(s) PO QID 02/0203/27/2012 Inactive as needed for severe pain Endocet 10 mg-325 mg tablet RxNorm: 1950851 1 Tablet(s) PO QID 01/0302/26/2012 Inactive as needed for severe pain Valium 10 mg tablet RxNorm: 392624 1 Tablet(s) PO BID 01/29/2012 No S top Date Active Protonix 40 mg tablet,delayed release RxNorm: 114531 1 Tablet(s ) PO QD 01/28/2012 07/21/2012 Inactive metformin ER 500 mg tablet,extended release 24 hr RxNorm: 86 0977 1 Tablet(s) PO QD 12/26/2011 07/20/2012 Inactive Trazadone 150 mg Tablet RxNorm: 1 Tablet(s) PO QHS prn sleep 1 04/23/2012 Inactive Endocet 10 mg-325 mg tablet RxNorm: 8671540 1 Tablet(s) PO QID 12/0301/24/2012 Inactive as needed for severe pain Nexium 40 mg capsule,delayed release RxNorm: 834004 1 Capsule(s ) PO QD 12/26/2011 01/27/2012 Inactive Symbicort 160 mcg-4.5 mcg/actuation HFA Aerosol Inhaler RxNo rm: 5292519 2 Puff(s) INH BID 12/04/2011 07/21/2012 Inactive Endocet 10 mg-325 mg tablet RxNorm: 7371644 1 Tablet(s) PO QID 11/0312/25/2011 Inactive as needed for severe pain metformin ER 500 mg tablet,extended release 24 hr RxNorm: 86 0977 1 Tablet(s) PO QD 11/20/2011 12/19/2011 Inactive metformin ER 500 mg tablet,extended release 24 hr RxNorm: 86 0977 1 Tablet(s) PO QD 11/20/2011 11/19/2011 Inactive amitriptyline 100 mg tablet RxNorm: 682562 Tablet(s) PO QHS 1 a nd 1/2 tabs QHS 11/12/2011 11/13/2011 Inactive Valium 10 mg tablet RxNorm: 701341 1 Tablet(s) PO BID 11/09/2011 No S top Date Active Endocet 10 mg-325 mg tablet RxNorm: 9603198 1 Tablet(s) PO QID 10/0211/14/2011 Inactive as needed for severe pain Aricept 10 mg Tab RxNorm: 945294 1 Tablet(s) PO QD 10/05/2011 013 Inactive Valium 10 mg tablet RxNorm: 728657 1 Tablet(s) PO BID 10/05/2011 No S top Date Active Endocet 10 mg-325 mg Tab RxNorm: 1287374 1 Tablet(s) PO QID 012 10/09/2011 Inactive as needed for severe pain Aricept 10 mg Tab RxNorm: 956873 1 Tablet(s) PO QD 08/14/2011 012 Inactive Endocet 10 mg-325 mg Tab RxNorm: 1304261 1 Tablet(s) PO QID 012 08/31/2011 Inactive as needed for severe pain Valium 10 mg Tab RxNorm: 299267 1 Tablet(s) PO BID 08/02/2011 No Stop Date Active propranolol 60 mg tablet RxNorm: 926493 1 Tablet(s) PO BID 07/26/19 12 09/11/2011 Inactive amitriptyline 100 mg tablet RxNorm: 827363 Tablet(s) PO QHS 1 a nd /2 tabs QHS 06/20/2011 09/11/2011 Inactive buspirone 10 mg tablet RxNorm: 817824 1 Tablet(s) PO BID 06/18/2011 0 09/15/2011 Inactive propranolol 60 mg Tab RxNorm: 683343 1 Tablet(s) PO BID 06/18/2011 Inactive gabapentin 800 mg Tab RxNorm: 459031 1 Tablet(s) PO BID 06/18/2011 Inactive ropinirole 2 mg tablet RxNorm: 775206 1 Tablet(s) PO QHS 05/29/2011 0 08/26/2011 Inactive trimethoprim 100 mg Tab RxNorm: 571502 1 Tablet(s) PO QHS 05/29/2011 07/21/2012 Inactive Endocet 10 mg-325 mg Tab RxNorm: 6671189 1 Tablet(s) PO QID 012 2011 Inactive as needed for severe pain Valium 10 mg Tab RxNorm: 555262 1 Tablet(s) PO QHS N eed to take med as prescribed. this is a 40 day RX. No early fills. 05/17/2011 05/20/2018 Inactive propranolol 60 mg Tab RxNorm: 046726 1 Tablet(s) PO BID 04/16/2011 Inactive Neurontin 800 mg Tab RxNorm: 700145 1 Tablet(s) PO QHS 04/05/201103/2011 Inactive Endocet 10 mg-325 mg Tab RxNorm: 2805643 1 Tablet(s) PO QID 012 05/02/2011 Inactive as needed for severe pain oxycodone-acetaminophen 10 mg-325 mg tablet RxNorm: 9542464 1 Ta blet(s) PO Q4H 03/28/2011 05/19/2012 Inactive Valium 10 mg Tab RxNorm: 348884 1 Tablet(s) PO QHS 03/28/2011 012 Inactive buspirone 10 mg Tab RxNorm: 398776 1 Tablet(s) PO BID 03/27/201106/02 Inactive propranolol 60 mg Tab RxNorm: 328231 1 Tablet(s) PO BID 03/19/2011 Inactive Klor-Con M20 20 mEq Tab RxNorm: 1057479 1 Tablet(s) PO QD 03/19/2011 07/21/2012 Inactive Aricept 10 mg Tab RxNorm: 332701 1 Tablet(s) PO QD 02/27/2011 012 Inactive propranolol 60 mg Tab RxNorm: 506024 1 Tablet(s) PO BID 02/19/2011 Inactive omeprazole 40 mg capsule,delayed release RxNorm: 441749 1 Capsu le(s) PO BID 01/24/2011 05/23/2011 Inactive clindamycin 300 mg capsule RxNorm: 334988 1 Capsule(s) PO TID 01/2402/02/2011 Inactive propranolol 60 mg Tab RxNorm: 802908 1 Tablet(s) PO BID 01/22/2011 No Stop Date Active nystatin 100,000 unit/g Topical Cream RxNorm: 294188 Applicatio n TOP BID 01/15/2011 01/14/2011 Inactive to rash for 2-4 week s Diflucan 200 mg Tab RxNorm: 816675 1 Tablet(s) PO QD 01/15/201101/28 Inactive buspirone 10 mg Tab RxNorm: 639955 1 Tablet(s) PO BID 01/08/201103/05 Inactive Valium 10 mg Tab RxNorm: 316830 1 Tablet(s) PO QHS 01/05/2011 012 Inactive Diflucan 200 mg Tab RxNorm: 396900 1 Tablet(s) PO QD 01/01/201101/14 Inactive Diflucan 200 mg Tab RxNorm: 067390 1 Tablet(s) PO QD 12/18/201012/31 Inactive Valium 10 mg Tab RxNorm: 207053 1 Tablet(s) PO QHS 12/12/2010 011 Inactive Diflucan 200 mg Tab RxNorm: 406808 1 Tablet(s) PO QD 12/07/201012/18 Inactive Aricept 10 mg Tab RxNorm: 383769 1 Tablet(s) PO QD 11/20/2010 011 Inactive ropinirole 1 mg Tab RxNorm: 704186 1 Tablet(s) PO QHS 11/16/201005/03 Inactive enalapril maleate 5 mg Tab RxNorm: 037930 1 Tablet(s) PO QD 011 05/20/2018 Inactive buspirone 10 mg Tab RxNorm: 881677 1 Tablet(s) PO BID 11/16/201012/02 Inactive Valium 10 mg Tab RxNorm: 024223 1 Tablet(s) PO QHS 11/07/2010 011 Inactive Pyridium 100 mg Tab RxNorm: 2724599 1 Tablet(s) PO TID 11/02/201004/2010 Inactive Macrobid 100 mg Cap RxNorm: 1279457 1 Capsule(s) PO BID 11/02/2010 Inactive buspirone 10 mg Tab RxNorm: 229509 1 Tablet(s) PO QHS 10/18/201005/02 Inactive propranolol 60 mg Tab RxNorm: 697073 1 Tablet(s) PO BID 09/18/2010 Inactive Valium 10 mg Tab RxNorm: 476354 1 Tablet(s) PO QHS 09/05/2010 011 Inactive Aricept 10 mg Tab RxNorm: 870030 1 Tablet(s) PO QD 08/14/2010 011 Inactive Valium 10 mg Tab RxNorm: 428883 1 Tablet(s) PO QHS 06/26/2010 06/23/2 011 Inactive ropinirole 1 mg Tab RxNorm: 829159 1 Tablet(s) PO QHS 06/19/201010/02 Inactive omeprazole 40 mg Cap, delayed release RxNorm: 560485 1 Capsule( s) PO QD 06/07/2010 10/04/2010 Inactive Endocet 10 mg-325 mg Tab RxNorm: 0331572 1 Tablet(s) PO QID as needed for severe pain 06/07/2010 03/07/2011 Inactive Endocet 10 mg-325 mg Tab RxNorm: 5303788 1 Tablet(s) PO QID as needed for severe pain 05/04/2010 06/02/2010 Inactive Valium 10 mg Tab RxNorm: 375880 1 Tablet(s) PO QHS 05/01/2010 011 Inactive propranolol 60 mg Tab RxNorm: 895486 1 Tablet(s) PO BID 04/03/2010 Inactive Valium 10 mg Tab RxNorm: 802576 1 Tablet(s) PO QHS 03/28/2010 011 Inactive omeprazole 40 mg Cap, Delayed Release RxNorm: 740899 1 Capsule( s) PO QD 03/28/2010 06/06/2010 Inactive Endocet 10 mg-325 mg Tab RxNorm: 1479190 1 Tablet(s) PO QID prn ari n 03/27/2010 05/20/2018 Inactive Valium 10 mg Tab RxNorm: 633694 1 Tablet(s) PO QHS 02/20/2010 011 Inactive Diflucan 100 mg Tab RxNorm: 575716 1 Tablet(s) PO BID 01/23/201003/2009 Inactive Diflucan 100 mg Tab RxNorm: 862020 1 Tablet(s) PO BID 01/05/201001/02 Inactive Aricept 10 mg Tab RxNorm: 844474 1 Tablet(s) PO QD 12/01/2009 011 Inactive OxyContin 20 mg 12 hr Tab RxNorm: 6151743 1 Tablet(s) PO BID 200904/05/2010 Inactive oxycodone-acetaminophen 10 mg-325 mg Tab RxNorm: 3748299 1 Table t(s) PO Q4H 11/22/2009 11/26/2009 Inactive Phenergan 25 mg Tab RxNorm: 129255 1 Tablet(s) PO PRN MIGRAINE 11/0303/07/2011 Inactive Demerol 100 mg Tab RxNorm: 462768 1 Tablet(s) PO PRN MIGRAINE 11/2203/07/2011 Inactive Oxycodone-Acetaminophen 10 mg-325 mg Tab RxNorm: 2569386 1 Table t(s) PO Q4H 10/11/2009 10/15/2009 Inactive Percocet 10 mg-325 mg Tab RxNorm: 2285691 1 Tablet(s) PO Q4H 200910/24/2009 Inactive propranolol 60 mg Tab RxNorm: 939833 1 Tablet(s) PO BID 08/29/2009 Inactive Valium 10 mg Tab RxNorm: 393279 1 Tablet(s) PO QHS 08/16/2009 010 Inactive Keflex 500 mg Cap RxNorm: 842609 1 Capsule(s) PO BID 07/25/200907/31 Inactive Hydroxyzine 25 mg Tab RxNorm: 548254 1 Tablet(s) PO TID 07/25/2009 Inactive Prednisone 20 mg Tab RxNorm: 778142 1 Tablet(s) PO BID 07/25/2009 Inactive Demerol 100 mg Tab RxNorm: 649785 1 Tablet(s) PO PRN MIGRAINE 07/25 No Stop Date Active Ropinirole 1 mg Tab RxNorm: 273128 1 Tablet(s) PO HS 07/20/200902/14 Inactive Valium 10 mg Tab RxNorm: 009313 1 Tablet(s) PO QHS 07/18/2009 010 Inactive Endocet 10 mg-325 mg Tab RxNorm: 5819075 1 Tablet(s) PO TID 010 07/07/2009 Inactive Demerol 100 mg Tab RxNorm: 755227 1 Tablet(s) PO PRN MIGRAINE 06/08 No Stop Date Active Ropinirole 1 mg Tab RxNorm: 593821 1 Tablet(s) PO HS 05/16/200907/14 Inactive ipratropium-albuterol 0.5 mg-3 mg(2.5 mg base)/3 mL ne bulization soln RxNorm: 0765019 1 Unit Dose INH Q4H as needed No Start Date Active MagOx 400 mg (241.3 mg magnesium) tablet RxNorm: 094318 1 Table t(s) PO BID No Start Date Active Vitamin B12 1000mcg Tablet RxNorm: 1 Tablet(s) PO QD No Start Date Active Vitamin D3 5,000 unit tablet RxNorm: 129048 1 Tablet(s) PO QD No Star t Date Active Tylenol Arthritis Pain 650 mg tablet,extended release RxNorm : 1552084 1 Tablet(s) PO Q4H No Start Date Active Lotrimin AF 2 % topical powder RxNorm: 634411 1 Application TOP BID No Start Date Active enalapril maleate 5 mg Tab RxNorm: 096620 1 Tablet(s) PO QD No Star t Date 07/20/2012 Inactive Demerol 100 mg Tab RxNorm: 847377 Tablet(s) PO PRN MIGRAINE No Star t Date 06/02/2009 Inactive metformin 500 mg tablet RxNorm: 687097 1 Tablet(s) PO QD No Start D ate 04/05/2013 Inactive Breo Ellipta 100 mcg-25 mcg/dose powder for inhalation RxNor m: 7388920 1 Puff(s) INH BID No Start Date 01/04/2016 Inactive Mag-Oxide 400 mg Tab RxNorm: 618230 1 Tablet(s) PO QD No Start Date 0 07/21/2012 Inactive Cipro 500 mg Tab RxNorm: 932877 1 Tablet(s) PO QD No Start Date 04/05 Inactive Ativan 0.5 mg tablet RxNorm: 981685 1 Tablet(s) PO TID as needed No Start Date 05/06/2019 Inactive melatonin 3 mg tablet RxNorm: 019952 2 Tablet(s) PO QHS No Start Da te 08/19/2018 Inactive buspirone 10 mg Tab RxNorm: 736518 1 Tablet(s) PO QD No Start Date Inactive sucralfate 100 mg/mL Oral Susp RxNorm: 149959 2 Teaspoon(s) PO QID No Start Date 07/21/2012 Inactive hydrocodone 5 mg-acetaminophen 325 mg tablet RxNorm: 510221 1 Tablet(s) PO Q4H as needed No Start Date 08/19/2018 Inactive Amaryl 2 mg tablet RxNorm: 438042 1 Tablet(s) PO BID No Start Date Inactive OxyContin 20 mg 12 hr Tab RxNorm: 9526394 1 Tablet(s) PO BID No Sta rt Date 11/27/2009 Inactive propranolol 40 mg tablet RxNorm: 454466 1 Tablet(s) PO QID No Start Date 01/19/2018 Inactive Trazadone 150 mg Tablet RxNorm: 1-2 Tablet(s) PO QHS prn sleep No Start Date 08/09/2010 Inactive propranolol 60 mg Tab RxNorm: 719143 1/2 Tablet(s) PO BID No Start Date 01/21/2011 Inactive insulin NPH and regular human subcutaneous RxNorm: 6759113 subcu taneous No Start Date 11/20/2018 Inactive Ativan 0.5 mg tablet RxNorm: 768972 1 Tablet(s) PO QID No Start Date 06/18/2016 Inactive Vasotec 5 mg Tab RxNorm: 469460 1 Tablet(s) PO BID No Start Date 06/2011 Inactive Toprol XL 50 mg tablet,extended release RxNorm: 276346 1 Tablet (s) PO BID No Start Date 04/05/2013 Inactive Ativan 0.5 mg tablet RxNorm: 691653 1 Tablet(s) PO TID No Start Date 05/25/2016 Inactive Klor-Con M20 20 mEq Tab RxNorm: 0260085 1 Tablet(s) PO QD No Start Date 03/19/2011 Inactive sumatriptan 100 mg tablet RxNorm: 065102 1 Tablet(s) PO at headache onset--repeat in 2hrs if remains No Start Date 07/21/2012 Inactive propranolol 60 mg Tab RxNorm: 110012 1 Tablet(s) PO BID No Start Da te 08/28/2009 Inactive Cholestyramine Light 4 gram Oral Powder RxNorm: 6256548 1 Unit Dose PO QD in water No Start Date 07/21/2012 Inactive nystatin 100,000 unit/g Topical Powder RxNorm: 587003 Applicati on TOP BID No Start Date 07/21/2012 Inactive vitamin T63-awhfa acid sublingual RxNorm: sublingual No Start Date 07/05/2013 Inactive cyclobenzaprine 5 mg tablet RxNorm: 739213 1/2-1 Tablet (s) PO TID as needed for muscle spasm No Start Date 07/18/2017 Inactive tramadol 50 mg tablet RxNorm: 182927 2 Tablet(s) PO TID as need ed for pain No Start Date 09/01/2014 Inactive aspirin 81 mg Tab RxNorm: 077375 1 Tablet(s) PO QOD No Start Date 04/2013 Inactive Vitamin B12 1000mcg Tablet RxNorm: 1 Tablet(s) PO QD No Start Date 07/18/2017 Inactive cholestyramine (with sugar) 4 gram oral powder RxNorm: 92807 3 1 Unit(s) PO QD as needed No Start Date 05/20/2018 Inactive ProAir HFA 90 mcg/Actuation Aerosol Inhaler RxNorm: 990383 2 Puff(s) INH Q4H prn shortness of breath No Start Date 07/21/2012 Inactive pravastatin 10 mg Tab RxNorm: 833253 1 Tablet(s) PO QD No Start Date 07/21/2012 Inactive gabapentin 800 mg Tab RxNorm: 553411 1 Tablet(s) PO BID No Start Da te 06/03/2011 Inactive Endocet 10 mg-325 mg Tab RxNorm: 7092708 1 Tablet(s) PO TID No Star t Date 06/02/2009 Inactive Naproxen 500 mg Tab RxNorm: 571165 1 Tablet(s) PO BID No Start Date 0 04/05/2010 Inactive Valium 10 mg Tab RxNorm: 323090 1 Tablet(s) PO BID No Start Date 07/04 Inactive enalapril maleate 5 mg Tab RxNorm: 306094 1 Tablet(s) PO QD No Star t Date 11/15/2010 Inactive doxepin 10 mg capsule RxNorm: 6964218 2 Capsule(s) PO QHS No Start Date 09/17/2018 Inactive MS Contin 15 mg Tab RxNorm: 032764 1 Tablet(s) PO BID No Start Date 0 09/18/2010 Inactive buspirone 5 mg tablet RxNorm: 813969 1 Tablet(s) PO TID No Start Da te 12/01/2013 Inactive [place]iles 3 Fish Oil Cap RxNorm: 1 Capsule(s) PO QD No Start Date 07/03 Inactive enalapril maleate 5 mg Tab RxNorm: 821225 1/2 Tablet(s) PO QD No St art Date 03/07/2011 Inactive Lyrica 75 mg capsule RxNorm: 451514 1 Capsule(s) PO QHS No Start Da te 02/08/2014 Inactive Lopressor 100 mg tablet RxNorm: 497087 1 Tablet(s) PO BID No Start Date 06/08/2018 Inactive Lantus Solostar U-100 Insulin 100 unit/mL (3 mL) subcu taneous pen RxNorm: 929717 45 Unit(s) SQ QAM No Start Date 05/20/2018 Inactive aspirin 81 mg tablet RxNorm: 415450 1 Tablet(s) PO QD No Start Date 0 09/14/2015 Inactive diltiazem CD 240 mg capsule,extended release 24 hr RxNorm: 8 44539 1 Capsule(s) PO QD No Start Date 05/25/2019 Inactive insulin NPH isophane U-100 human subcutaneous RxNorm: 743532 beckwith bcutaneous No Start Date 04/20/2019 Inactive sumatriptan 100 mg tablet RxNorm: 551493 1 Tablet(s) PO at headache onset. May repeat 1 in two hours if headache remains. Max of 2 per 24 hours No Start Date 04/01/2018 Inactive gabapentin 300 mg capsule RxNorm: 577558 1 Capsule(s) PO QHS No Sta rt Date 02/04/2018 Inactive Topamax 25 mg Tab RxNorm: 661411 Oral No Start Date 03/07/2011 In active Senokot-S 8.6 mg-50 mg Tab RxNorm: 9975752 1 Tablet(s) PO QD No Sta rt Date 03/07/2011 Inactive metformin ER 500 mg 24 hr tablet,extended release RxNorm: 18 07373 1 Tablet(s) PO QD No Start Date 05/20/2018 Inactive Symbicort 80 mcg-4.5 mcg/actuation HFA Aerosol Inhaler RxNor m: 6261636 2 Puff(s) INH BID No Start Date 04/05/2013 Inactive metoprolol tartrate 25 mg tablet RxNorm: 914532 1 Tablet(s) PO BID No Start Date 05/20/2019 Inactive propranolol 60 mg Tab RxNorm: 679480 1/2 Tablet(s) PO BID No Start Date 07/21/2012 Inactive metformin ER 500 mg 24 hr tablet,extended release RxNorm: 18 46408 2 Tablet(s) PO QD No Start Date 12/16/2017 Inactive Insulin Syringe 1 mL 29 gauge x 1/2" RxNorm: 2 s yringes daily with insulin Dx: E11.65 No Start Date 10/07/2018 Inactive Amitriptyline 75 mg Tab RxNorm: 651592 1 Tablet(s) PO QHS No Start Date 10/23/2009 Inactive donepezil 10 mg Tab RxNorm: 617266 1 Tablet(s) PO QD No Start Date Inactive Lantus Solostar U-100 Insulin 100 unit/mL (3 mL) subcu taneous pen RxNorm: 251320 36 Unit(s) SQ QAM No Start Date 12/24/2017 Inactive Miacalcin 200 unit/Actuation Nasal [place] Aerosol RxNorm: 261 204 1 [place] NASAL QD Alternate nostrils each day No Start Date 04/05/2010 Inactive Amitriptyline 150 mg Tab RxNorm: 875678 1 Tablet(s) PO QHS No Start Date 01/04/2010 Inactive Bystolic 5 mg tablet RxNorm: 633815 1 Tablet(s) PO QD No Start Date 0 08/13/2012 Inactive Aricept 10 mg Tab RxNorm: 961253 1 Tablet(s) PO QD No Start Date 11/03 Inactive Lantus Solostar U-100 Insulin 100 unit/mL (3 mL) subcu taneous pen RxNorm: 355687 50 Unit(s) SQ QAM No Start Date 08/27/2018 Inactive albuterol sulfate 2.5 mg/3 mL (0.083 %) Neb Solution RxNorm: 892551 1 Unit Dose INH QID as needed No Start Date 08/23/2015 Inactive Symbicort 160 mcg-4.5 mcg/actuation HFA Aerosol Inhaler RxNo rm: 9183188 2 Puff(s) INH BID No Start Date 12/03/2011 Inactive Savella 50 mg Tab RxNorm: 735717 1 Tablet(s) PO BID No Start Date 04/2010 Inactive amitriptyline 100 mg Tab RxNorm: 442416 1 1/2 Tablet(s) PO QHS No S tart Date 06/19/2011 Inactive nystatin 100,000 unit/g Topical Cream RxNorm: 887759 Ap plication TOP BID to rash for 2-4 weeks No Start Date 01/14/2011 Inactive Trelegy Ellipta 100 mcg-62.5 mcg-25 mcg powder for inhalatio n RxNorm: 5838201 1 Puff(s) INH QD No Start Date 12/16/2017 Inactive Lyrica 150 mg capsule RxNorm: 606463 1 Capsule(s) PO QHS No Start D ate 12/04/2015 Inactive sennosides 8.6 mg tablet RxNorm: 364813 1 Tablet(s) PO BID No Start Date 09/07/2018 Inactive metformin ER 500 mg tablet,extended release 24 hr RxNorm: 86 0975 1 Tablet(s) PO QD No Start Date 10/22/2017 Inactive Fish Oil 1,000 mg Cap RxNorm: 1 Capsule(s) PO QD No Start Date 06/2011 Inactive Zyrtec 10 mg Tab RxNorm: 0608775 1 Tablet(s) PO QD No Start Date 07/03 Inactive albuterol sulfate HFA 90 mcg/actuation aerosol inhaler RxNor m: 1486317 2 Puff(s) INH Q4H as needed for cough No Start Date 09/30/2013 Inactive trazodone 150 mg tablet RxNorm: 487155 1 Tablet(s) PO QHS No Start Date 07/21/2012 Inactive Spiriva with HandiHaler 18 mcg & inhalation capsules RxNorm: 813011 1 Capsule(s) INH QD No Start Date 04/05/2013 Inactive Coreg 3.125 mg Tab RxNorm: 601209 1 Tablet(s) PO BID No Start Date Inactive Phenergan 25 mg Tab RxNorm: 470404 Tablet(s) PO PRN MIGRAINE No Sta rt Date 11/21/2009 Inactive Vitamin D 50,000 unit Cap RxNorm: 2455994 1 Capsule(s) PO QW No Sta rt Date 03/07/2011 Inactive Januvia 100 mg tablet RxNorm: 016421 1 Tablet(s) PO QD No Start Date 10/25/2015 Inactive Eliquis 5 mg tablet RxNorm: 3827677 1 Tablet(s) PO BID No Start Date 08/19/2018 Inactive Advair Diskus 500 mcg-50 mcg/Dose for Inhalation RxNorm: 418025 1 INH BID No Start Date 07/21/2012 Inactive Vitamin D3 5,000 unit tablet RxNorm: 260945 1 Tablet(s) PO QD No St art Date 07/18/2017 Inactive Amaryl 2 mg tablet RxNorm: 495591 1 Tablet(s) PO QD No Start Date 06/2015 Inactive Actos 30 mg tablet RxNorm: 552757 1 Tablet(s) PO QD No Start Date Inactive promethazine 25 mg tablet RxNorm: 174259 1 Tablet(s) PO Q4H prn N/V No Start Date 07/21/2012 Inactive ProAir HFA 90 mcg/actuation Aerosol Inhaler RxNorm: 037877 2 Puff(s) INH Q4H prn dyspnea No Start Date 07/21/2012 Inactive Dexilant 60 mg Capsule RxNorm: 416449 1 Capsule(s) PO QD No Start D ate 01/27/2012 Inactive Lantus Solostar U-100 Insulin 100 unit/mL (3 mL) subcu taneous pen RxNorm: 873265 38 Unit(s) SQ QAM No Start Date 05/20/2018 Inactive Valium 10 mg Tab RxNorm: 733362 1 Tablet(s) PO QHS AND PRN No Start Date 10/24/2009 Inactive ZOFRAN ODT 8 mg disintegrating tablet RxNorm: 534049 1 Tablet(s ) PO Q6H No Start [...] Date S ervice Location MICROALBUMIN URINE RANDOM 62746 MICRL MG/L 14.9 MG/L Unknown MICROALBUMIN URINE RANDOM 95333 XM.ALB/CRE 6.1 MG/GCR Unknown MICROALBUMIN URINE RANDOM 92470 CREAT MG/D 243 MG/DL Unknown MICROALBUMIN URINE RANDOM 71974 CRE/100 2.43 G/L 03/05 Unknown PROTEIN/CREAT URINE WITH RATIO 78180|76190 PROT R U 14 MG/D L 04/01/2014 Unknown PROTEIN/CREAT URINE WITH RATIO 65377|22027 CREAT R U 254 MG/ DL 04/01/2014 Unknown PROTEIN/CREAT URINE WITH RATIO 37174|07437 XRATIO P/C 55 MG/ G 04/01/2014 Unknown URINALYSIS 79283 PROTEIN UR NEG 04/28/2010 Unknown URINALYSIS 30069 HEMGLBN UR NEG 04/28/2010 Unknown URINALYSIS 19797 GLUCOSE UR NEG 04/28/2010 Unknown URINALYSIS 83082 KETONES UR NEG 04/28/2010 Unknown URINALYSIS 38066 PH U 5.5 04/28/2010 Unknown URINALYSIS 87415 SP GR U 1.025 04/28/2010 Unknown URINALYSIS 24846 BILRUBN UR NEG 04/28/2010 Unknown URINALYSIS 86314 LEUKO UR 2+ 04/28/2010 Unknown URINALYSIS 68927 NITRITE UR NEG 04/28/2010 Unknown MICR CUL? [id number] WBC/HPF 6-10 04/28/2010 Unknown MICR CUL? [id number] RBC/HPF 0-5 04/28/2010 Unknown MICR CUL? [id number] HYAL CAST 16-25 04/28/2010 Unknown MICR CUL? [id number] SP TO YOLIE? NO 04/28/2010 Unknown MICR CUL? [id number] APPEAR UR NORMAL 04/28/2010 Unknown MICR CUL? [id number] SQ EPI/LPF FEW 04/28/2010 Unknown Procedures Procedure Codes Date URINALYSIS NONAUTO W/O SCOPE CPT-4: 28623 04/16/2019 URINE CULTURE/ COLONY COUNT CPT-4: 63559 04/16/2019 CEFTRIAXONE SODIUM INJECTION CPT-4: J0696 04/16/2019 THER/PROPH/DIAG INJ SC/IM CPT-4: 99229 04/16/2019 DRAIN/INJECT JOINT/BURSA CPT-4: 19431 01/22/2019 TRIAMCINOLONE ACET INJ NOS CPT-4: J3301 01/22/2019 DEXAMETHASONE SODIUM PHOS CPT-4: J1100 01/22/2019 URINE CULTURE/ COLONY COUNT CPT-4: 43758 01/07/2019 URINALYSIS NONAUTO W/O SCOPE CPT-4: 23085 01/07/2019 CEFTRIAXONE SODIUM INJECTION CPT-4: J0696 01/07/2019 THER/PROPH/DIAG INJ SC/IM CPT-4: 90130 01/07/2019 FLU VACC PRSV FREE INC ANTIG 65 AND OLDER CPT-4: 01900 12/24/2018 FLU VACC PRSV FREE INC ANTIG 65 AND OLDER CPT-4: 82234 12/24/2018 ADMIN INFLUENZA VIRUS VAC CPT-4: G0008 12/24/2018 THER/PROPH/DIAG INJ SC/IM CPT-4: 91373 11/04/2018 KETOROLAC TROMETHAMINE INJ CPT-4: J1885 11/04/2018 PROMETHAZINE HCL INJECTION CPT-4: J2550 11/04/2018 PPPS, subseq visit CPT-4: G0439 09/18/2018 THER/PROPH/DIAG INJ SC/IM CPT-4: 42345 04/01/2018 KETOROLAC TROMETHAMINE INJ CPT-4: J1885 04/01/2018 PROMETHAZINE HCL INJECTION CPT-4: J2550 04/01/2018 URINE CULTURE/ COLONY COUNT CPT-4: 22097 03/17/2018 URINALYSIS NONAUTO W/O SCOPE CPT-4: 90817 03/17/2018 FLU VACC PRSV FREE INC ANTIG 65 AND OLDER CPT-4: 79087 12/17/2017 PNEUMOCOCCAL VACC 23 RANDALL IM CPT-4: 09532 12/17/2017 ADMIN INFLUENZA VIRUS VAC CPT-4: G0008 12/17/2017 ADMIN PNEUMOCOCCAL VACCINE CPT-4: G0009 12/17/2017 PPPS, subseq visit CPT-4: G0439 09/17/2017 THER/PROPH/DIAG INJ SC/IM CPT-4: 97111 08/26/2017 KETOROLAC TROMETHAMINE INJ CPT-4: J1885 08/26/2017 PROMETHAZINE HCL INJECTION CPT-4: J2550 08/26/2017 URINALYSIS NONAUTO W/O SCOPE CPT-4: 43466 07/19/2017 URINE CULTURE/ COLONY COUNT CPT-4: 20027 07/19/2017 CEFTRIAXONE SODIUM INJECTION CPT-4: J0696 07/19/2017 THER/PROPH/DIAG INJ SC/IM CPT-4: 93889 07/19/2017 THER/PROPH/DIAG INJ SC/IM CPT-4: 71063 07/19/2017 TRIAMCINOLONE ACET INJ NOS CPT-4: J3301 07/19/2017 PRESCRIP TRANSMIT VIA ERX SY CPT-4: G8553 05/07/2017 PRESCRIP TRANSMIT VIA ERX SY CPT-4: G8553 02/22/2017 PRESCRIP TRANSMIT VIA ERX SY CPT-4: G8553 01/23/2017 FLU VACC PRSV FREE INC ANTIG 65 AND OLDER CPT-4: 93170 12/20/2016 PNEUMOCOCCAL VACC 13 RANDALL IM CPT-4: 57047 12/20/2016 ADMIN INFLUENZA VIRUS VAC CPT-4: G0008 12/20/2016 ADMIN PNEUMOCOCCAL VACCINE CPT-4: G0009 12/20/2016 URINALYSIS NONAUTO W/O SCOPE CPT-4: 21070 10/08/2016 URINE CULTURE/ COLONY COUNT CPT-4: 31774 10/08/2016 PRESCRIP TRANSMIT VIA ERX SY CPT-4: G8553 10/08/2016 PRESCRIP TRANSMIT VIA ERX SY CPT-4: G8553 09/19/2016 PRESCRIP TRANSMIT VIA ERX SY CPT-4: G8553 08/20/2016 PRESCRIP TRANSMIT VIA ERX SY CPT-4: G8553 02/29/2016 KETOROLAC TROMETHAMINE INJ CPT-4: J1885 02/02/2016 THER/PROPH/DIAG INJ SC/IM CPT-4: 37090 02/02/2016 PROMETHAZINE HCL INJECTION CPT-4: J2550 02/02/2016 PRESCRIP TRANSMIT VIA ERX SY CPT-4: G8553 02/02/2016 FLU VACC PRSV FREE INC ANTIG 65 AND OLDER CPT-4: 95880 01/05/2016 PPPS, subseq visit CPT-4: G0439 01/05/2016 ADMIN INFLUENZA VIRUS VAC CPT-4: G0008 01/05/2016 URINE CULTURE/ COLONY COUNT CPT-4: 07310 12/05/2015 URINALYSIS NONAUTO W/O SCOPE CPT-4: 56345 12/05/2015 PRESCRIP TRANSMIT VIA ERX SY CPT-4: G8553 12/05/2015 PRESCRIP TRANSMIT VIA ERX SY CPT-4: G8553 10/26/2015 URINALYSIS NONAUTO W/O SCOPE CPT-4: 07952 10/05/2015 URINE CULTURE/ COLONY COUNT CPT-4: 81408 10/05/2015 PRESCRIP TRANSMIT VIA ERX SY CPT-4: G8553 10/05/2015 SERVICE REQUIRED FOR PMD CPT-4: G0372 09/15/2015 PRESCRIP TRANSMIT VIA ERX SY CPT-4: G8553 09/15/2015 SPECIAL REPORTS OR FORMS CPT-4: 37033 08/25/2015 PRESCRIP TRANSMIT VIA ERX SY CPT-4: G8553 07/05/2015 URINALYSIS NONAUTO W/O SCOPE CPT-4: 10827 03/30/2015 ASSAY, GLUCOSE, BLOOD QUANT CPT-4: 72917 03/30/2015 URINE CULTURE/ COLONY COUNT CPT-4: 84961 03/30/2015 PRESCRIP TRANSMIT VIA ERX SY CPT-4: G8553 03/30/2015 PRESCRIP TRANSMIT VIA ERX SY CPT-4: G8553 02/03/2015 FLU VACC PRSV FREE INC ANTIG 65 AND OLDER CPT-4: 20617 12/29/2014 ADMIN INFLUENZA VIRUS VAC CPT-4: G0008 12/29/2014 PRESCRIP TRANSMIT VIA ERX SY CPT-4: G8553 12/29/2014 PRESCRIP TRANSMIT VIA ERX SY CPT-4: G8553 09/02/2014 PROTEIN/CREAT URINE WITH RATIO CPT-4: 78106|76076 5 MICROALBUMIN QUANTITATIVE CPT-4: 93420 04/01/2014 PRESCRIP TRANSMIT VIA ERX SY CPT-4: G8553 03/16/2014 PRESCRIP TRANSMIT VIA ERX SY CPT-4: G8553 03/09/2014 THER/PROPH/DIAG INJ SC/IM CPT-4: 17495 03/01/2014 TRIAMCINOLONE ACET INJ NOS CPT-4: J3301 03/01/2014 PRESCRIP TRANSMIT VIA ERX SY CPT-4: G8553 02/09/2014 URINE CULTURE/ COLONY COUNT CPT-4: 02127 10/30/2013 URINALYSIS NONAUTO W/O SCOPE CPT-4: 89551 10/21/2013 URINE CULTURE/ COLONY COUNT CPT-4: 64225 10/21/2013 DESTRUCT PREMALG LESION (Cryosurgery) CPT-4: 07344 PRESCRIP TRANSMIT VIA ERX SY CPT-4: G8553 10/05/2013 URINALYSIS NONAUTO W/O SCOPE CPT-4: 64059 08/04/2013 URINE CULTURE/ COLONY COUNT CPT-4: 75493 08/04/2013 PRESCRIP TRANSMIT VIA ERX SY CPT-4: G8553 08/04/2013 THER/PROPH/DIAG INJ SC/IM CPT-4: 78178 07/13/2013 TRIAMCINOLONE ACET INJ NOS CPT-4: J3301 07/13/2013 PRESCRIP TRANSMIT VIA ERX SY CPT-4: G8553 05/27/2013 URINALYSIS NONAUTO W/O SCOPE CPT-4: 19642 05/25/2013 URINE CULTURE/ COLONY COUNT CPT-4: 28003 05/25/2013 THER/PROPH/DIAG INJ SC/IM CPT-4: 35809 05/04/2013 VITAMIN B12 INJECTION CPT-4: J3420 05/04/2013 THER/PROPH/DIAG INJ SC/IM CPT-4: 54469 04/17/2013 VITAMIN B12 INJECTION CPT-4: J3420 04/17/2013 THER/PROPH/DIAG INJ SC/IM CPT-4: 48298 04/17/2013 METHYLPREDNISOLONE 40 MG INJ CPT-4: J1030 04/17/2013 TRIAMCINOLONE ACET INJ NOS CPT-4: J3301 04/17/2013 URINALYSIS NONAUTO W/O SCOPE CPT-4: 73842 04/06/2013 URINE CULTURE/ COLONY COUNT CPT-4: 37200 04/06/2013 PRESCRIP TRANSMIT VIA ERX SY CPT-4: G8553 04/06/2013 KETOROLAC TROMETHAMINE INJ CPT-4: J1885 06/25/2012 PROMETHAZINE HCL INJECTION CPT-4: J2550 06/25/2012 THER/PROPH/DIAG INJ SC/IM CPT-4: 00172 06/25/2012 THER/PROPH/DIAG INJ SC/IM CPT-4: 32740 06/24/2012 METHYLPREDNISOLONE 40 MG INJ CPT-4: J1030 06/24/2012 TRIAMCINOLONE ACET INJ NOS CPT-4: J3301 06/24/2012 URINE CULTURE/ COLONY COUNT CPT-4: 92913 06/24/2012 THER/PROPH/DIAG INJ SC/IM CPT-4: 01904 05/20/2012 KETOROLAC TROMETHAMINE INJ CPT-4: J1885 05/20/2012 THER/PROPH/DIAG INJ SC/IM CPT-4: 49275 05/20/2012 PROMETHAZINE HCL INJECTION CPT-4: J2550 05/20/2012 DRAIN/INJECT JOINT/BURSA CPT-4: 40179 02/13/2012 METHYLPREDNISOLONE 40 MG INJ CPT-4: J1030 02/13/2012 TRIAMCINOLONE ACET INJ NOS CPT-4: J3301 02/13/2012 THER/PROPH/DIAG INJ SC/IM CPT-4: 65862 11/14/2011 METHYLPREDNISOLONE 40 MG INJ CPT-4: J1030 11/14/2011 TRIAMCINOLONE ACET INJ NOS CPT-4: J3301 11/14/2011 THER/PROPH/DIAG INJ SC/IM CPT-4: 71200 09/12/2011 KETOROLAC TROMETHAMINE INJ CPT-4: J1885 09/12/2011 THER/PROPH/DIAG INJ SC/IM CPT-4: 50444 08/09/2011 METHYLPREDNISOLONE 40 MG INJ CPT-4: J1030 08/09/2011 TRIAMCINOLONE ACET INJ NOS CPT-4: J3301 08/09/2011 URINE CULTURE/ COLONY COUNT CPT-4: 28883 07/03/2011 URINE CULTURE/ COLONY COUNT CPT-4: 45752 06/04/2011 THER/PROPH/DIAG INJ SC/IM CPT-4: 80331 05/03/2011 METHYLPREDNISOLONE 40 MG INJ CPT-4: J1030 05/03/2011 TRIAMCINOLONE ACET INJ NOS CPT-4: J3301 05/03/2011 URINALYSIS NONAUTO W/O SCOPE CPT-4: 09227 01/24/2011 URINE CULTURE/ COLONY COUNT CPT-4: 32746 01/24/2011 FLUZONE, 5ML (Medicare) CPT-4: Q2038 01/02/2011 ADMIN INFLUENZA VIRUS VAC CPT-4: G0008 01/02/2011 ASSAY, GLUCOSE, BLOOD QUANT CPT-4: 14575 12/07/2010 URINE CULTURE/ COLONY COUNT CPT-4: 25569 11/02/2010 THER/PROPH/DIAG INJ SC/IM CPT-4: 94374 10/18/2010 METHYLPREDNISOLONE 40 MG INJ CPT-4: J1030 10/18/2010 TRIAMCINOLONE ACET INJ NOS CPT-4: J3301 10/18/2010 TRIAMCINOLONE ACET INJ NOS CPT-4: J3301 05/11/2010 METHYLPREDNISOLONE 40 MG INJ CPT-4: J1030 05/11/2010 THER/PROPH/DIAG INJ SC/IM CPT-4: 44589 05/11/2010 TRIAMCINOLONE ACET INJ NOS CPT-4: J3301 02/09/2010 METHYLPREDNISOLONE 40 MG INJ CPT-4: J1030 02/09/2010 THER/PROPH/DIAG INJ SC/IM CPT-4: 12032 02/09/2010 SERVICE REQUIRED FOR PMD CPT-4: G0372 02/09/2010 FLU VACCINE 3 YRS & > IM UP 64 CPT-4: 96462 0 PNEUMOCOCCAL VACC 23 RANDALL IM CPT-4: 19025 12/07/2009 ADMIN INFLUENZA VIRUS VAC CPT-4: G0008 12/07/2009 ADMIN PNEUMOCOCCAL VACCINE CPT-4: G0009 12/07/2009 TRIAMCINOLONE ACET INJ NOS CPT-4: J3301 05/26/2009 THER/PROPH/DIAG INJ SC/IM CPT-4: 86933 05/26/2009 METHYLPREDNISOLONE 80 MG INJ CPT-4: J1040 [...] 1: 114/72 Code: 8480-6 BMI: 37.8 Code: 63724-1 Heart Rate 1: 72 bpm Height: 5'3" [...] 1: 106/68 Code: 8480-6 BMI: 35.7 Code: 06371-5 Heart Rate 1: 72 bpm Height: 5'4" Respiratory Rate: 20 bpm SpO2: 98% Tempera ture: 36.7 (C) / 98.0 (F) Weight: 208 lbs 04/16/2018 Blood Pressure 1: 132/82 Code: 8480-6 BMI: 37.9 Code: 53566-2 Heart Rate 1: 72 bpm Height: 5'4" Respiratory Rate: 20 bpm SpO2: 96% Tempera ture: 37.1 (C) / 98.8 (F) Weight: 221 lbs 04/01/2018 Blood Pressure 1: 150/90 Code: 8480-6 Heart Rate 1: 72 bpm Respiratory Rate: 22 bpm SpO2: 95% Temperature: 36.4 (C) / 97.6 (F) We ight: 216 lbs 03/06/2018 Blood Pressure 1: 126/78 Code: 8480-6 BMI: 37.4 Code: 76426-3 Heart Rate 1: 68 bpm Height: 5'4" [...] ight: 222 lbs 12/25/2017 BMI: 37.8 Code: 37803-7 Heart Rate 1: 76 bpm Height: 5 '4" Respiratory Rate: 20 bpm SpO2: 96% Temperature: 37.3 (C) / 99.2 (F) Weight: 220 lbs 12/17/2017 Blood Pressure 1: 132/78 Code: 8480-6 BMI: 37.2 Code: 96307-9 Heart Rate 1: 88 bpm Height: 5'4" Respiratory Rate: 20 bpm SpO2: 96% Tempera ture: 37.3 (C) / 99.2 (F) Weight: 217 lbs 10/30/2017 Blood Pressure 1: 114/68 Code: 8480-6 BMI: 36.4 Code: 95856-7 Heart Rate 1: 72 bpm Height: 5'4" Respiratory Rate: 22 bpm SpO2: 96% Tempera ture: 36.8 (C) / 98.2 (F) Weight: 212 lbs 10/23/2017 Blood Pressure 1: 124/78 Code: 8480-6 Heart Rate 1: 72 bpm Respiratory Rate: 24 bpm SpO2: 94% Temperature: 36.6 (C) / 97.9 (F) We ight: 212 lbs 09/17/2017 Blood Pressure 1: 128/82 Code: 8480-6 BMI: 37.4 Code: 59607-4 Heart Rate 1: 72 bpm Height: 5'4" Respiratory Rate: 20 bpm SpO2: 96% Tempera ture: 37.0 (C) / 98.6 (F) Weight: 218 lbs 07/19/2017 Blood Pressure 1: 136/84 Code: 8480-6 BMI: 36.6 Code: 27903-2 Heart Rate 1: 88 bpm Height: 5'4" Respiratory Rate: 20 bpm SpO2: 97% Tempera ture: 36.7 (C) / 98.0 (F) Weight: 213 lbs 05/29/2017 Blood Pressure 1: 136/82 Code: 8480-6 BMI: 36.7 Code: 21129-0 Heart Rate 1: 72 bpm Height: 5'4" Respiratory Rate: 20 bpm SpO2: 97% Tempera ture: 36.9 (C) / 98.4 (F) Weight: 214 lbs 05/07/2017 Blood Pressure 1: 122/80 Code: 8480-6 BMI: 37.1 Code: 43343-1 Heart Rate 1: 80 bpm Height: 5'4" Respiratory Rate: 24 bpm SpO2: 96% Tempera ture: 36.1 (C) / 97.0 (F) Weight: 216 lbs 03/18/2017 BMI: 36.7 Code: 46775-5 Heart Rate 1: 80 bpm Height: 5 '4" Respiratory Rate: 22 bpm SpO2: 95% Temperature: 36.9 (C) / 98.4 (F) Weight: 214 lbs 02/27/2017 Blood Pressure 1: 146/94 Code: 8480-6 BMI: 36.6 Code: 14382-5 Heart Rate 1: 76 bpm Height: 5'4" Respiratory Rate: 22 bpm SpO2: 97% Tempera ture: 36.6 (C) / 97.9 (F) Weight: 213 lbs 02/22/2017 Blood Pressure 1: 126/90 Code: 8480-6 BMI: 36.4 Code: 49089-3 Heart Rate 1: 84 bpm Height: 5'4" Respiratory Rate: 22 bpm SpO2: 95% Tempera ture: 36.9 (C) / 98.4 (F) Weight: 212 lbs 01/23/2017 Blood Pressure 1: 146/82 Code: 8480-6 BMI: 37.6 Code: 95989-9 Heart Rate 1: 96 bpm Height: 5'4" Respiratory Rate: 20 bpm SpO2: 96% Tempera ture: 36.9 (C) / 98.4 (F) Weight: 219 lbs 12/20/2016 Blood Pressure 1: 126/70 Code: 8480-6 BMI: 37.2 Code: 02697-3 Heart Rate 1: 76 bpm Height: 5'4" Respiratory Rate: 22 bpm SpO2: 95% Tempera ture: 36.6 (C) / 97.8 (F) Weight: 217 lbs 10/08/2016 Blood Pressure 1: 128/82 Code: 8480-6 BMI: 36.9 Code: 10055-7 Heart Rate 1: 76 bpm Height: 5'4" Respiratory Rate: 20 bpm SpO2: 95% Tempera ture: 37.0 (C) / 98.6 (F) Weight: 215 lbs 09/19/2016 Blood Pressure 1: 144/78 Code: 8480-6 BMI: 37.8 Code: 75390-6 Heart Rate 1: 76 bpm Height: 5'4" Respiratory Rate: 22 bpm SpO2: 95% Tempera ture: 37.0 (C) / 98.6 (F) Weight: 220 lbs 08/20/2016 Blood Pressure 1: 140/86 Code: 8480-6 BMI: 37.4 Code: 70321-4 Heart Rate 1: 80 bpm Height: 5'4" Respiratory Rate: 20 bpm SpO2: 95% Tempera ture: 36.9 (C) / 98.4 (F) Weight: 218 lbs 06/19/2016 Blood Pressure 1: 124/78 Code: 8480-6 BMI: 37.8 Code: 05291-0 Heart Rate 1: 74 bpm Height: 5'4" Respiratory Rate: 24 bpm SpO2: 96% Tempera ture: 36.9 (C) / 98.4 (F) Weight: 220 lbs 06/04/2016 Blood Pressure 1: 124/78 Code: 8480-6 BMI: 38.8 Code: 71151-0 Heart Rate 1: 72 bpm Height: 5'4" Respiratory Rate: 24 bpm SpO2: 95% Tempera ture: 36.8 (C) / 98.2 (F) Weight: 226 lbs 05/02/2016 Blood Pressure 1: 136/90 Code: 8480-6 BMI: 37.6 Code: 36707-1 Heart Rate 1: 72 bpm Height: 5'4" Respiratory Rate: 24 bpm SpO2: 96% Tempera ture: 36.9 (C) / 98.4 (F) Weight: 219 lbs 04/03/2016 Blood Pressure 1: 126/78 Code: 8480-6 BMI: 38.1 Code: 84357-5 Heart Rate 1: 72 bpm Height: 5'4" Respiratory Rate: 22 bpm SpO2: 94% Tempera ture: 36.9 (C) / 98.4 (F) Weight: 222 lbs 02/29/2016 Blood Pressure 1: 132/78 Code: 8480-6 Heart Rate 1: 78 bpm Height: Respiratory Rate: 24 bpm SpO2: 95% Temperature: 36.4 (C) / 97.6 (F) We ight: 02/02/2016 Blood Pressure 1: 124/78 Code: 8480-6 BMI: 37.6 Code: 70867-5 Heart Rate 1: 76 bpm Height: 5'4" Respiratory Rate: 20 bpm SpO2: 95% Tempera ture: 36.8 (C) / 98.2 (F) Weight: 219 lbs 01/05/2016 Blood Pressure 1: 126/70 Code: 8480-6 BMI: 37.1 Code: 42293-4 Heart Rate 1: 76 bpm Height: 5'4" Respiratory Rate: 20 bpm Temperature: 36 .6 (C) / 97.8 (F) Weight: 216 lbs 12/05/2015 Blood Pressure 1: 126/72 Code: 8480-6 BMI: 36.9 Code: 90154-8 Heart Rate 1: 92 bpm Height: 5'4" Respiratory Rate: 20 bpm Temperature: 36 .7 (C) / 98.1 (F) Weight: 215 lbs 10/26/2015 Blood Pressure 1: 142/80 Code: 8480-6 BMI: 36.4 Code: 82252-2 Heart Rate 1: 82 bpm Height: 5'4" Respiratory Rate: 24 bpm SpO2: 92% Tempera ture: 35.9 (C) / 96.7 (F) Weight: 212 lbs 10/05/2015 Blood Pressure 1: 136/82 Code: 8480-6 Heart Rate 1: 80 bpm Respiratory Rate: 18 bpm SpO2: 98% Temperature: 35.7 (C) / 96.3 (F) We ight: 214 lbs 09/15/2015 Blood Pressure 1: 116/80 Code: 8480-6 BMI: 34.6 Code: 28084-3 Heart Rate 1: 76 bpm Height: 5'6" Respiratory Rate: 20 bpm Temperature: 36 .6 (C) / 97.9 (F) Weight: 211 lbs 08/24/2015 Blood Pressure 1: 124/80 Code: 8480-6 BMI: 34.1 Code: 49461-9 Heart Rate 1: 68 bpm Height: 5'6" Respiratory Rate: 20 bpm Temperature: 36 .8 (C) / 98.3 (F) Weight: 208 lbs 07/05/2015 Blood Pressure 1: 114/78 Code: 8480-6 BMI: 33.9 Code: 19060-0 Heart Rate 1: 80 bpm Height: 5'6" Respiratory Rate: 20 bpm Temperature: 36 .6 (C) / 97.9 (F) Weight: 207 lbs 06/06/2015 Blood Pressure 1: 122/78 Code: 8480-6 BMI: 34.1 Code: 09745-8 Heart Rate 1: 76 bpm Height: 5'6" Respiratory Rate: 24 bpm SpO2: 96% Tempera ture: 36.4 (C) / 97.6 (F) Weight: 208 lbs 05/23/2015 Blood Pressure 1: 124/78 Code: 8480-6 Heart Rate 1: 76 bpm Respiratory Rate: 24 bpm SpO2: 93% Temperature: 36.8 (C) / 98.2 (F) We ight: 212 lbs 05/05/2015 Blood Pressure 1: 136/80 Code: 8480-6 BMI: 35.4 Code: 59721-8 Heart Rate 1: 76 bpm Height: 5'6" Respiratory Rate: 28 bpm Temperature: 37 .0 (C) / 98.6 (F) Weight: 216 lbs 03/30/2015 Blood Pressure 1: 132/86 Code: 8480-6 BMI: 35.2 Code: 58356-4 Heart Rate 1: 84 bpm Height: 5'6" Respiratory Rate: 24 bpm Temperature: 36 .7 (C) / 98.0 (F) Weight: 215 lbs 02/03/2015 Blood Pressure 1: 122/74 Code: 8480-6 BMI: 35.7 Code: 28185-3 Heart Rate 1: 84 bpm Height: 5'6" Respiratory Rate: 20 bpm Temperature: 36 .9 (C) / 98.5 (F) Weight: 218 lbs 12/29/2014 Blood Pressure 1: 132/80 Code: 8480-6 BMI: 35.1 Code: 38422-2 Heart Rate 1: 80 bpm Height: 5'6" Respiratory Rate: 20 bpm Temperature: 36 .6 (C) / 97.8 (F) Weight: 214 lbs 09/02/2014 Blood Pressure 1: 128/92 Code: 8480-6 BMI: 34.7 Code: 38956-7 Heart Rate 1: 84 bpm Height: 5'6" Respiratory Rate: 26 bpm Temperature: 36 .8 (C) / 98.2 (F) Weight: 212 lbs 08/25/2014 Blood Pressure 1: 124/80 Code: 8480-6 BMI: 34.7 Code: 70757-4 Heart Rate 1: 78 bpm Height: 5'6" Respiratory Rate: 22 bpm SpO2: 97% Tempera ture: 36.6 (C) / 97.8 (F) Weight: 212 lbs 04/01/2014 Blood Pressure 1: 142/84 Code: 8480-6 BMI: 34.4 Code: 61426-9 Heart Rate 1: 74 bpm Height: 5'5" Respiratory Rate: 20 bpm Temperature: 36 .4 (C) / 97.6 (F) Weight: 207 lbs 03/16/2014 Blood Pressure 1: 142/90 Code: 8480-6 BMI: 34.6 Code: 09147-2 Heart Rate 1: 76 bpm Height: 5'5" Respiratory Rate: 24 bpm Temperature: 36 .5 (C) / 97.7 (F) Weight: 208 lbs 03/09/2014 Blood Pressure 1: 116/70 Code: 8480-6 BMI: 35.3 Code: 06112-2 Heart Rate 1: 72 bpm Height: 5'5" [...] 1: 128/86 Code: 8480-6 BMI: 34.3 Code: 90055-7 Heart Rate 1: 84 bpm Height: 5'5" Respiratory Rate: 20 bpm Temperature: 36 .7 (C) / 98.0 (F) Weight: 206 lbs 12/23/2013 Blood Pressure 1: 122/70 Code: 8480-6 BMI: 34.3 Code: 56411-6 Heart Rate 1: 68 bpm Height: 5'5" Respiratory Rate: 20 bpm Temperature: 36 .8 (C) / 98.2 (F) Weight: 206 lbs 10/05/2013 Blood Pressure 1: 118/76 Code: 8480-6 BMI: 34.1 Code: 86031-1 Heart Rate 1: 68 bpm Height: 5'5" Respiratory Rate: 20 bpm SpO2: 98% Tempera ture: 36.6 (C) / 97.9 (F) Weight: 205 lbs 08/04/2013 Blood Pressure 1: 126/82 Code: 8480-6 BMI: 33.3 Code: 25468-0 Heart Rate 1: 76 bpm Height: 5'5" Respiratory Rate: 20 bpm Temperature: 36 .8 (C) / 98.2 (F) Weight: 200 lbs 07/03/2013 Blood Pressure 1: 124/82 Code: 8480-6 BMI: 33.3 Code: 17518-6 Heart Rate 1: 72 bpm Height: 5'5" Respiratory Rate: 22 bpm Temperature: 36 .1 (C) / 97.0 (F) Weight: 200 lbs 05/27/2013 Blood Pressure 1: 126/82 Code: 8480-6 Heart Rate 1: 74 bpm Respiratory Rate: 20 bpm Temperature: 36.0 (C) / 96.8 (F) Weight: 199 lbs 04/06/2013 Blood Pressure 1: 118/80 Code: 8480-6 BMI: 35.2 Code: 45123-1 Heart Rate 1: 80 bpm Height: 5'4" Respiratory Rate: 20 bpm Temperature: 37 .4 (C) / 99.3 (F) Weight: 205 lbs 11/10/2012 Blood Pressure 1: 128/82 Code: 8480-6 Heart Rate 1: 84 bpm Respiratory Rate: 20 bpm Temperature: 36.7 (C) / 98.0 (F) Weight: 199 lbs 09/02/2012 Blood Pressure 1: 116/82 Code: 8480-6 BMI: 34.2 Code: 67071-1 Heart Rate 1: 88 bpm Height: 5'4" Respiratory Rate: 22 bpm Temperature: 36 .6 (C) / 97.8 (F) Weight: 199 lbs 08/04/2012 Blood Pressure 1: 128/74 Code: 8480-6 BMI: 34.0 Code: 17825-4 Heart Rate 1: 92 bpm Height: 5'4" Respiratory Rate: 20 bpm Temperature: 36 .4 (C) / 97.5 (F) Weight: 198 lbs 07/21/2012 Blood Pressure 1: 124/86 Code: 8480-6 Heart Rate 1: 116 bpm Respiratory Rate: 24 bpm Temperature: 36.8 (C) / 98.2 (F) 07/02/2012 Blood Pressure 1: 11688 Code: 8480-6 BMI: 33.6 Code: 19832-2 Heart Rate 1: 76 bpm Height: 5'4" Respiratory Rate: 20 bpm Temperature: 36 .8 (C) / 98.3 (F) Weight: 196 lbs 06/24/2012 Blood Pressure 1: 124/80 Code: 8480-6 BMI: 34.3 Code: 43195-7 Heart Rate 1: 72 bpm Height: 5'4" SpO2: 96% Temperature: 36.3 (C) / 97.3 (F) Weight: 200 lbs 05/20/2012 Blood Pressure 1: 116/88 Code: 8480-6 BMI: 33.8 Code: 12435-8 Heart Rate 1: 80 bpm Height: 5'4" Respiratory Rate: 22 bpm Temperature: 36 .9 (C) / 98.4 (F) Weight: 197 lbs 05/08/2012 Blood Pressure 1: 128/86 Code: 8480-6 BMI: 33.8 Code: 43287-4 Heart Rate 1: 76 bpm Height: 5'4" Respiratory Rate: 26 bpm SpO2: 95% Tempera ture: 36.1 (C) / 97.0 (F) Weight: 197 lbs 04/22/2012 Blood Pressure 1: 106/64 Code: 8480-6 BMI: 33.8 Code: 18663-5 Heart Rate 1: 70 bpm Height: 5'4" Temperature: 36.1 (C) / 97.0 (F) Weight: 197 lbs 02/13/2012 Blood Pressure 1: 126/82 Code: 8480-6 BMI: 34.7 Code: 20266-1 Heart Rate 1: 64 bpm Height: 5'4" Respiratory Rate: 20 bpm Temperature: 36 .6 (C) / 97.8 (F) Weight: 202 lbs 01/28/2012 Blood Pressure 1: 116/80 Code: 8480-6 BMI: 34.7 Code: 22655-7 Heart Rate 1: 76 bpm Height: 5'4" Respiratory Rate: 20 bpm Temperature: 36 .8 (C) / 98.3 (F) Weight: 202 lbs 12/26/2011 Blood Pressure 1: 132/82 Code: 8480-6 BMI: 36.0 Code: 57099-8 Heart Rate 1: 68 bpm Height: 5'4" Respiratory Rate: 22 bpm Temperature: 36 .7 (C) / 98.0 (F) Weight: 210 lbs 11/14/2011 Blood Pressure 1: 124/80 Code: 8480-6 BMI: 36.4 Code: 27031-7 Heart Rate 1: 76 bpm Height: 5'4" Respiratory Rate: 20 bpm Temperature: 36 .8 (C) / 98.2 (F) Weight: 212 lbs 09/12/2011 Blood Pressure 1: 108/74 Code: 8480-6 BMI: 37.1 Code: 47570-3 Heart Rate 1: 72 bpm Height: 5'4" Respiratory Rate: 20 bpm Temperature: 37 .0 (C) / 98.6 (F) Weight: 216 lbs 08/15/2011 Blood Pressure 1: 122/80 Code: 8480-6 BMI: 36.9 Code: 04157-9 Heart Rate 1: 76 bpm Height: 5'4" Respiratory Rate: 20 bpm Temperature: 36 .2 (C) / 97.1 (F) Weight: 215 lbs 08/09/2011 Blood Pressure 1: 112/78 Code: 8480-6 BMI: 36.9 Code: 65065-8 Heart Rate 1: 68 bpm Height: 5'4" Respiratory Rate: 20 bpm Temperature: 36 .7 (C) / 98.0 (F) Weight: 215 lbs 07/03/2011 Blood Pressure 1: 140/94 Code: 8480-6 BMI: 36.2 Code: 42840-5 Heart Rate 1: 68 bpm Height: 5'4" Temperature: 36.0 (C) / 96.8 (F) Weight: 211 lbs 06/04/2011 Blood Pressure 1: 124/70 Code: 8480-6 BMI: 36.7 Code: 51165-2 Heart Rate 1: 68 bpm Height: 5'4" Respiratory Rate: 20 bpm Temperature: 36 .6 (C) / 97.9 (F) Weight: 214 lbs 05/03/2011 Blood Pressure 1: 130/76 Code: 8480-6 BMI: 36.4 Code: 91478-8 Heart Rate 1: 74 bpm Height: 5'5" Temperature: 36.2 (C) / 97.2 (F) Weight: 219 lbs 04/05/2011 Blood Pressure 1: 124/86 Code: 8480-6 BMI: 35.9 Code: 46113-3 Heart Rate 1: 76 bpm Height: 5'6" Respiratory Rate: 22 bpm Temperature: 36 .3 (C) / 97.3 (F) Weight: 219 lbs 03/08/2011 Blood Pressure 1: 112/78 Code: 8480-6 BMI: 35.1 Code: 82952-4 Heart Rate 1: 80 bpm Height: 5'6" Respiratory Rate: 26 bpm Temperature: 36 .9 (C) / 98.4 (F) Weight: 214 lbs 01/24/2011 Blood Pressure 1: 110/82 Code: 8480-6 BMI: 35.6 Code: 61760-3 Heart Rate 1: 80 bpm Height: 5'6" Temperature: 36.1 (C) / 97.0 (F) Weight: 217 lbs 01/02/2011 Blood Pressure 1: 106/72 Code: 8480-6 BMI: 35.6 Code: 67489-6 Heart Rate 1: 76 bpm Height: 5'6" [...] 1: 120/74 Code: 8480-6 BMI: 35.9 Code: 92250-7 Heart Rate 1: 72 bpm Height: 5'5" Temperature: 36.3 (C) / 97.4 (F) Weight: 216 lbs 09/19/2010 Blood Pressure 1: 124/80 Code: 8480-6 BMI: 35.4 Code: 54334-1 Heart Rate 1: 76 bpm Height: 5'5" [...] 1: 122/78 Code: 8480-6 BMI: 37.4 Code: 02982-6 Heart Rate 1: 84 bpm Height: 5'5" [...] up 03/01/2014 ER follow up 02/09/2014 Hospital [facility] gastroesophageal reflux 12/23/2013 painful urination 10/30/2013 UTI [...] up 10/18/[address] Medrano last w [facility], having increased allergy symptoms. Would like [...] month f/u follow up 12/07/2009 from [facility], done with PT--finished about 2wks ago follow [...] Diagnosis: LION (obstructive sleep apnea)[ICD10: G47.33] Pattie BRUNSON S. ANUSHKA [facility] CPT-4: 44655 08/10/2019 ([id number]) OFFICE/OUTPATIENT VISIT EST Diagnosis: Pelvic pain in female[ICD10: R10.2] Diagnosis: Left leg swelling[ICD10: M79.89] Diagnosis: Dyspnea[ICD10: R06.00] Diagnosis: Constipation[ICD10: K59.00] Pattie BRUNSON S. O RENDER DO [facility] [employer] CPT-4: 47662 08/04/2019 ([id number]) OFFICE/OUTPATIENT VISIT EST Diagnosis: Inspiratory stridor[ICD10: R06.1] Diagnosis: Diarrhea[ICD10: R19.7] Belia Reid [facility] CPT-4: 9921 3 07/06/2019 ([id number]) OFFICE/OUTPATIENT VISIT EST Diagnosis: Left leg swelling[ICD10: M79.89] Diagnosis: Dyspnea[ICD10: R06.00] [facility] CPT-4: 9921 3 06/24/2019 ([id number]) OFFICE/OUTPATIENT VISIT EST Diagnosis: Acute bronchitis[ICD10: J20.9] Diagnosis: Colitis[ICD10: K52.9] Belia REID [facility] CPT-4: 20879 06/16/2019 ([id number]) OFFICE/OUTPATIENT VISIT EST Diagnosis: Diarrhea[ICD10: R19.7] Diagnosis: Abdominal bloating[ICD10: R14.0] Belia Reid [facility] CPT- 4: 53177 06/08/2019 ([id number]) OFFICE/OUTPATIENT VISIT EST Diagnosis: Acute febrile illness[ICD10: R50.9] Diagnosis: Colitis[ICD10: K52.9] Belia Reid [facility] CPT-4: 35010 05/26/2019 ([id number]) OFFICE/OUTPATIENT VISIT EST Diagnosis: Chronic obstructive pulmonary disease, unspecified[ICD10: J44.9] Diagnosis: Pulmonary fibrosis[ICD10: J84.10] Diagnosis: Intermittent stridor[ICD10: R06.1] Diagnosis: Muscle weakness[ICD10: M62.81] Belia REID [facility] CPT-4: 06668 05/13/2019 ([id number]) OFFICE/OUTPATIENT VISIT EST Diagnosis: Stridor[ICD10: R06.1] Diagnosis: COUGH[ICD10: R05] Belia REID [facility] CPT-4: 02766 05/06/2019 ([id number]) OFFICE/OUTPATIENT VISIT EST Diagnosis: Stridor[ICD10: R06.1] Diagnosis: Muscle, jerky movements (uncontrolled)[ICD10: G25.5] Belia REID [facility] CPT-4: 32050 04/29/2019 ([id number]) OFFICE/OUTPATIENT VISIT EST Diagnosis: Upper respiratory infection[ICD10: J06.9] Diagnosis: Flank pain[ICD10: R10.9] Diagnosis: Weight gain[ICD10: R63.5] Pattie AMBRIZ [facility] CPT-4: 27807 04/16/2019 ([id number]) OFFICE/OUTPATIENT VISIT EST Diagnosis: Generalized pruritus[ICD10: L29.9] Belia REID DO [facility] CPT-4: 67801 04/08/2019 ([id number]) OFFICE/OUTPATIENT VISIT EST Diagnosis: Acute bursitis of left shoulder[ICD10: M75.52] Diagnosis: Cervicalgia[ICD10: M54.2] Diagnosis: Chest wall pain[ICD10: R07.89] Belia REID [facility] CPT-4: 89592 01/22/2019 ([id number]) OFFICE/OUTPATIENT VISIT EST Diagnosis: Abdominal pain[ICD10: R10.9] Diagnosis: Pyelonephritis[ICD10: N12] Pattie [facility]UE[facility] CPT-4: 17039 01/07/2019 ([id number]) OFFICE/OUTPATIENT VISIT EST Diagnosis: Low back pain[ICD10: M54.5] Diagnosis: Left lumbar radiculopathy[ICD10: M54.16] Diagnosis: Left flank pain[ICD10: R10.9] Diagnosis: Left lower quadrant pain[ICD10: R10.32] Diagnosis: FLU VACCINE[ICD10: Z23] Belia [facility] CPT-4: 86479 12/24/2018 ([id number]) OFFICE/OUTPATIENT VISIT EST Diagnosis: Migraine, unspecified, not intractable, without status migrainosus[ICD10: G43.909] Diagnosis: Fibromyalgia[ICD10: M79.7] Belia [facility] CPT-4: 49515 11/20/2018 ([id number]) OFFICE/OUTPATIENT VISIT EST Diagnosis: Migraine, unspecified, intractable, without status migrainosus[ICD10: G43.919] Diagnosis: Acute sinusitis, unspecified[ICD10: J01.90] Pattie [facility] CPT-4: 74964 11/04/2018 ([id number]) OFFICE/OUTPATIENT VISIT EST Diagnosis: Pain in left wrist[ICD10: M25.532] Diagnosis: Other dorsalgia[ICD10: M54.89] Pattie REID DO [facility] CPT-4: 97796 09/08/2018 ([id number]) OFFICE/OUTPATIENT VISIT EST Diagnosis: Acute stress reaction[ICD10: F43.0] Diagnosis: Pruritus, unspecified[ICD10: L29.9] 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, 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] Belia REID DO [facility] CPT-4: 19766 08/20/2018 ([id number]) OFFICE/OUTPATIENT VISIT EST Diagnosis: Hypotension due to drugs[ICD10: I95.2] Diagnosis: Paroxysmal atrial fibrillation[ICD10: I48.0] Diagnosis: Localized edema[ICD10: R60.0] Belia REID DO [facility] CPT-4: 92834 06/19/2018 ([id number]) OFFICE/OUTPATIENT VISIT EST Diagnosis: Generalized hyperhidrosis[ICD10: R61] Diagnosis: Essential (primary) hypertension[ICD10: I10] Diagnosis: Supraventricular tachycardia[ICD10: I47.1] Belia REID TierPM [facility] CPT-4: 79368 06/09/2018 ([id number]) OFFICE/OUTPATIENT VISIT EST Diagnosis: Stridor[ICD10: R06.1] Diagnosis: Dependence on supplemental oxygen[ICD10: Z99.81] Diagnosis: Weakness[ICD10: R53.1] Diagnosis: Supraventricular tachycardia[ICD10: I47.1] Belia REID [facility] CPT-4: 26272 05/21/2018 ([id number]) OFFICE/OUTPATIENT VISIT EST Diagnosis: Cervical disc disorder with radiculopathy, unspecified cervical region[ICD10: M50.10] Belia REID DO [facility] CPT-4: 05332 04/16/2018 ([id number]) OFFICE/OUTPATIENT VISIT EST Diagnosis: Migraine, unspecified, intractable, without status migrainosus[ICD10: G43.919] Diagnosis: Fibromyalgia[ICD10: M79.7] Pattie [facility] CPT-4: 17453 04/01/2018 ([id number]) NURSE/OUTPATIENT VISIT EST Diagnosis: Hematuria, unspecified[ICD10: R31.9] Diagnosis: Dysuria[ICD10: R30.0] Belia REID [facility] CPT-4: 92939 03/17/2018 ([id number]) OFFICE/OUTPATIENT VISIT EST Diagnosis: Erythema intertrigo[ICD10: L30.4] Diagnosis: Chronic obstructive pulmonary disease with (acute) exacerbation[ICD10: J44.1] Diagnosis: Type 2 diabetes mellitus with hyperglycemia[ICD10: E11.65] Belia REID [facility] CPT-4: 09519 03/06/2018 ([id number]) OFFICE/OUTPATIENT VISIT EST Diagnosis: Cervicalgia[ICD10: M54.2] Pattie [facility]BRI[facility] CPT-4: 79239 02/05/2018 ([id number]) OFFICE/OUTPATIENT VISIT EST Diagnosis: Candidiasis of skin and nail[ICD10: B37.2] Diagnosis: Cervicalgia[ICD10: M54.2] Pattie [facility] CPT-4: 12860 01/20/2018 ([id number]) OFFICE/OUTPATIENT VISIT EST Diagnosis: Pain in thoracic spine[ICD10: M54.6] Diagnosis: Radiculopathy, thoracic region[ICD10: M54.14] Belia REID [facility] CPT-4: 24215 12/25/2017 ([id number]) OFFICE/OUTPATIENT VISIT EST Diagnosis: Pain in thoracic spine[ICD10: M54.6] Diagnosis: Other muscle spasm[ICD10: M62.838] Diagnosis: FLU VACCINE[ICD10: Z23] Diagnosis: PNEUMOCOCCAL VACCINE[ICD10: Z23] Belia REID DO [facility] CPT-4: 89054 12/17/2017 ([id number]) OFFICE/OUTPATIENT VISIT EST Diagnosis: Chronic obstructive pulmonary disease with (acute) exacerbation[ICD10: J44.1] Belia REID DO [facility] CPT- 4: 12585 10/30/2017 ([id number]) OFFICE/OUTPATIENT VISIT EST Diagnosis: Chronic obstructive pulmonary disease with acute lower respiratory infection[ICD10: J44.0] Diagnosis: Mild intermittent asthma with (acute) exacerbation[ICD10: J45.21] Belia REID DO [facility] CPT-4: 05301 10/23/2017 ([id number]) NURSE/OUTPATIENT VISIT EST Diagnosis: Migraine, unspecified, not intractable, without status migrainosus[ICD10: G43.909] Belia REID DO [facility] CPT - 4: 91288 08/26/2017 ([id number]) OFFICE/OUTPATIENT VISIT EST Diagnosis: Urinary tract infection, site not specified[ICD10: N39.0] Diagnosis: Encounter for screening for osteoporosis[ICD10: Z13.820] Diagnosis: Encounter for screening mammogram for malignant neoplasm of breast[ICD10: Z12.31] Diagnosis: Acute bronchitis, unspecified[ICD10: J20.9] Pattie REID DO [facility] CPT-4: 70030 07/19/2017 ([id number]) OFFICE/OUTPATIENT VISIT EST Diagnosis: Rash and other nonspecific skin eruption[ICD10: R21] Pattie REID DO [facility] CPT-4: 34432 05/29/2017 ([id number]) OFFICE/OUTPATIENT VISIT EST Diagnosis: Diarrhea, unspecified[ICD10: R19.7] Diagnosis: Tinea corporis[ICD10: B35.4] Diagnosis: Tinea cruris[ICD10: B35.6] Diagnosis: Migraine, unspecified, not intractable, without status migrainosus[ICD10: G43.909] Belia REID DO [facility] CPT - 4: 94493 05/07/2017 ([id number]) OFFICE/OUTPATIENT VISIT EST Diagnosis: Stridor[ICD10: R06.1] Diagnosis: Chronic obstructive pulmonary disease with (acute) exacerbation[ICD10: J44.1] Belia REID DO [facility] CPT- 4: 48620 03/18/2017 ([id number]) OFFICE/OUTPATIENT VISIT EST Diagnosis: Type 2 diabetes mellitus with hyperglycemia[ICD10: E11.65] Belia REID DO [facility] CPT-4: 64428 02/27/2017 OFFICE/OUTPATIENT VISIT EST Diagnosis: Type 2 diabetes mellitus with hyperglycemia[ICD10: E11.65] Pattie REID DO [facility] CPT-4: 09224 02/22/2017 ([id number]) OFFICE/OUTPATIENT VISIT EST Diagnosis: Urinary tract infection, site not specified[ICD10: N39.0] Diagnosis: Pneumonia, unspecified organism[ICD10: J18.9] Diagnosis: Type 2 diabetes mellitus with hyperglycemia[ICD10: E11.65] Belia REID DO [facility] CPT-4: 16385 01/23/2017 ([id number]) OFFICE/OUTPATIENT VISIT EST Diagnosis: Type 2 diabetes mellitus with hyperglycemia[ICD10: E11.65] Diagnosis: Localized edema[ICD10: R60.0] Diagnosis: PNEUMOCOCCAL VACCINE[ICD10: Z23] Diagnosis: FLU VACCINE[ICD10: Z23] Belia [facility] CPT-4: 92310 12/20/2016 OFFICE/OUTPATIENT VISIT EST Diagnosis: Pain in thoracic spine[ICD10: M54.6] Diagnosis: Low back pain[ICD10: M54.5] Diagnosis: Cervicalgia[ICD10: M54.2] Diagnosis: Cough[ICD10: R05] Celeste Ferreira BELIA REID DO [facility] CPT-4: 04712 10/08/2016 ([id number]) OFFICE/OUTPATIENT VISIT EST Diagnosis: Primary insomnia[ICD10: F51.01] Diagnosis: Migraine, unspecified, not intractable, without status migrainosus[ICD10: G43.909] Diagnosis: Type 2 diabetes mellitus with hyperglycemia[ICD10: E11.65] Belia REID DO [facility] CPT-4: 17428 09/19/2016 ([id number]) OFFICE/OUTPATIENT VISIT EST Diagnosis: Migraine, unspecified, not intractable, without status migrainosus[ICD10: G43.909] Diagnosis: Generalized abdominal pain[ICD10: R10.84] Diagnosis: Cough[ICD10: R05] Belia REID DO [facility] CPT-4: 65184 08/20/2016 ([id number]) OFFICE/OUTPATIENT VISIT EST Diagnosis: Chronic obstructive pulmonary disease, unspecified[ICD10: J44.9] Diagnosis: Stridor[ICD10: R06.1] Belia REID DO [facility] CPT-4: 05077 06/19/2016 ([id number]) OFFICE/OUTPATIENT VISIT EST Diagnosis: Chronic obstructive pulmonary disease, unspecified[ICD10: J44.9] Diagnosis: Personal history of urinary (tract) infections[ICD10: Z87.440] Belia REID DO [facility] CPT-4: 13671 06/04/2016 ([id number]) OFFICE/OUTPATIENT VISIT EST Diagnosis: Stridor[ICD10: R06.1] Diagnosis: Chronic obstructive pulmonary disease with acute lower respiratory infection[ICD10: J44.0] Diagnosis: Other specified diseases of intestine[ICD10: K63.89] Diagnosis: Cystitis, unspecified without hematuria[ICD10: N30.90] Belia REID TierPM [facility] CPT-4: 31900 05/02/2016 ([id number]) OFFICE/OUTPATIENT VISIT EST Diagnosis: Fibromyalgia[ICD10: M79.7] Diagnosis: Urinary tract infection, site not specified[ICD10: N39.0] Belia REID DO [facility] CPT-4: 92797 04/03/2016 ([id number]) OFFICE/OUTPATIENT VISIT EST Diagnosis: Unspecified asthma, uncomplicated[ICD10: J45.909] Diagnosis: Cough[ICD10: R05] Lidia Hwang BELIA REID TierPM [facility] T-4: 89539 02/29/2016 ([id number]) OFFICE/OUTPATIENT VISIT EST Diagnosis: Migraine, unspecified, intractable, without status migrainosus[ICD10: G43.919] Diagnosis: Urinary tract infection, site not specified[ICD10: N39.0] Belia REID DO [facility] CPT-4: 94990 02/02/2016 ([id number]) OFFICE/OUTPATIENT VISIT EST Diagnosis: Urinary tract infection, site not specified[ICD10: N39.0] Diagnosis: Unspecified abdominal pain[ICD10: R10.9] Diagnosis: Pain in thoracic spine[ICD10: M54.6] Diagnosis: Type 2 diabetes mellitus with diabetic neuropathic arthropathy[ICD10: E11.610] Belia Anushka [facility]NELLLINE [facility]da [facility] CPT-[facility]: 74567 12/05/2015 ([id number]) OFFICE/OUTPATIENT VISIT EST Diagnosis: Chronic obstructive pulmonary disease with (acute) exacerbation[ICD10: J44.1] Diagnosis: Migraine, unspecified, not intractable, without status migrainosus[ICD10: G43.909] Lidia CORNELLLINE BushraMayda [facility] CPT -4: 87041 10/26/2015 ([id number]) OFFICE/OUTPATIENT VISIT EST Diagnosis: Hematuria, unspecified[ICD10: R31.9] Diagnosis: Urinary tract infection, site not specified[ICD10: N39.0] Lidiajose de jesus Hwang BELIA BushraMayda [facility] CPT-[facility]: 37237 10/05/2015 OFFICE/OUTPATIENT VISIT EST Diagnosis: Chronic obstructive pulmonary disease, unspecified[ICD10: J44.9] Diagnosis: Muscle weakness (generalized)[ICD10: M62.81] Diagnosis: Polyneuropathy, unspecified[ICD10: G62.9] Diagnosis: Other intervertebral disc degeneration, 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 CPT-4: 71431 07/05/2015 ([id number]) OFFICE/OUTPATIENT VISIT EST Diagnosis: Mild intermittent asthma with (acute) exacerbation[ICD10: J45.21] Diagnosis: Chronic obstructive pulmonary disease, unspecified[ICD10: J44.9] Belia REID DO [facility] CPT-4: 25760 06/06/2015 ([id number]) OFFICE/OUTPATIENT VISIT EST Diagnosis: Chronic obstructive pulmonary disease with (acute) exacerbation[ICD10: J44.1] Lidia REID DO [facility] CPT- 4: 12154 05/23/2015 ([id number]) OFFICE/OUTPATIENT VISIT EST Diagnosis: Type 2 diabetes mellitus with hyperglycemia[ICD10: E11.65] Diagnosis: Functional dyspepsia[ICD10: K30] Belia REID [facility] CPT-4: 55738 05/05/2015 ([id number]) OFFICE/OUTPATIENT VISIT EST Diagnosis: Type 2 diabetes mellitus with hyperglycemia[ICD10: E11.65] Diagnosis: Glycosuria[ICD10: R81] Diagnosis: Urinary tract infection, site not specified[ICD10: N39.0] Belia REID [facility] CPT-4: 63047 03/30/2015 ([id number]) OFFICE/OUTPATIENT VISIT EST Diagnosis: Generalized abdominal pain[ICD10: R10.84] Diagnosis: Diarrhea, unspecified[ICD10: R19.7] Diagnosis: Urinary tract infection, site not specified[ICD10: N39.0] Diagnosis: Gastro-esophageal reflux disease without esophagitis[ICD10: K21.9] Belia REID DO 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] Diagnosis: RESTLESS LEGS SYNDROME[ICD9: 333.94] Diagnosis: MIGRAINE NOS/NOT INTRCBL[ICD9: 346.90] Belia [facility] CPT-4: 56681 09/02/2014 ([id number]) OFFICE/OUTPATIENT VISIT EST Diagnosis: Cervical radiculopathy[ICD9: 723.4] Diagnosis: Cervicalgia[ICD9: 723.1] Diagnosis: Degenerative disc disease, cervical[ICD9: 722.4] 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I[ICD9: 250.00] Belia [facility] CPT-4: 04185 04/01/2014 OFFICE/OUTPATIENT VISIT EST Diagnosis: Reactive airway disease[ICD9: 493.90] Belia [facility] CPT-4: 65716 03/16/2014 ([id number]) OFFICE/OUTPATIENT VISIT EST Diagnosis: BRONCHITIS, ACUTE[ICD9: 466.0] Diagnosis: Reactive airway disease[ICD9: 493.90] Belia [facility] CPT-4: 76867 03/09/2014 OFFICE/OUTPATIENT VISIT EST Diagnosis: BRONCHITIS, ACUTE[ICD9: 466.0] Diagnosis: WHEEZING[ICD9: 786.07] Huong [facility] CPT-4: 50203 03/03/2014 OFFICE/OUTPATIENT VISIT EST Diagnosis: BRONCHITIS, ACUTE[ICD9: 466.0] Diagnosis: WHEEZING[ICD9: 786.07] Huong De LunaFidepool [facility] CPT-4: 32002 03/01/2014 ([id number]) OFFICE/OUTPATIENT VISIT EST Diagnosis: GERD[ICD9: 530.81] Diagnosis: ARTHRALGIA-MULTIPLE SITES[ICD9: 719.49] Diagnosis: LUMB/LUMBOSAC DISC DEGEN[ICD9: 722.52] Diagnosis: - I - FIBROMYALGIA[ICD9: 729.1] Belia REID DO [facility] CPT-4: 79049 02/09/2014 ([id number]) OFFICE/OUTPATIENT VISIT EST Diagnosis: Peptic ulcer disease[ICD9: 533.90] Diagnosis: RESTLESS LEGS SYNDROME[ICD9: 333.94] Diagnosis: Neuropathy[ICD9: 355.9] Belia SMITH ER [facility] CPT-4: 69239 12/23/2013 ([id number]) OFFICE/OUTPATIENT VISIT EST Diagnosis: URINARY TRACT INFECTION[ICD9: 599.0] Belia REID DO [facility] CPT-4: 11974 10/30/2013 ([id number]) OFFICE/OUTPATIENT VISIT EST Diagnosis: Flank pain[ICD9: 789.00] Belia MARTINEZ [facility] CPT-4: 25237 10/21/2013 ([id number]) OFFICE/OUTPATIENT VISIT EST Diagnosis: INFLAMED SEBORR KERATOS[ICD9: 702.11] Diagnosis: Brachioradial pruritus[ICD9: 698.9] Diagnosis: ASTHMA NOS[ICD9: 493.90] Belia MARTINEZ [facility] CPT-4: 64417 10/05/2013 ([id number]) OFFICE/OUTPATIENT VISIT EST Diagnosis: HYPERTENSION[ICD9: 401.9] Diagnosis: - I - FIBROMYALGIA[ICD9: 729.1] Diagnosis: DIZZINESS/VERTIGO[ICD9: 780.4] Diagnosis: MIGRAINE NOS/NOT INTRCBL[ICD9: 346.90] Diagnosis: Diabetic peripheral neuropathy[ICD9: 250.60] Diagnosis: Flank pain[ICD9: 789.00] Belia MARTINEZ [facility] [employer] CPT-4: 78709 08/04/2013 ([id number]) OFFICE/OUTPATIENT VISIT EST Diagnosis: ALLERGIC RHINITIS[ICD9: 477.9] Belia REID DO [facility] CPT-4: 47788 07/13/2013 OFFICE/OUTPATIENT VISIT EST Diagnosis: URINARY TRACT INFECTION[ICD9: 599.0] Huong VanFideelaere KRAIG REID DO [facility] CPT-4: 97144 07/03/2013 OFFICE/OUTPATIENT VISIT EST Diagnosis: HYPERTENSION[ICD9: 401.9] Diagnosis: URINARY TRACT INFECTION[ICD9: 599.0] Diagnosis: BACKACHE[ICD9: 724.5] Diagnosis: URINARY INCONTINENCE[ICD9: 788.30] Huong De LunaFidepool REID [facility] CPT-4: 74780 05/27/2013 ([id number]) OFFICE/OUTPATIENT VISIT EST Diagnosis: Flank pain[ICD9: 789.00] Beliasandy Reid BELIA Yuridia POOLE [facility] CPT-4: 92909 05/25/2013 ([id number]) OFFICE/OUTPATIENT VISIT EST Diagnosis: B-COMPLEX DEFIC NEC[ICD9: 266.2] Belia Zacharyisabellaannie CORNELLBELIA Yuridia [facility] CPT-4: 14172 05/04/2013 ([id number]) OFFICE/OUTPATIENT VISIT EST Diagnosis: ALLERGIC RHINITIS[ICD9: 477.9] Diagnosis: Vitamin B12 deficiency[ICD9: 266.2] Belia THOMPSON Yuridia [facility] CPT-4: 54685 04/17/2013 ([id number]) OFFICE/OUTPATIENT VISIT EST 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I[ICD9: 250.00] Diagnosis: URINARY TRACT INFECTION[ICD9: 599.0] Diagnosis: DIZZINESS/VERTIGO[ICD9: 780.4] Diagnosis: DIARRHEA[ICD9: 787.91] Belia BRUNSON BushraMayda RALF Peguero [facility] CPT-4: 00721 04/06/2013 ([id number]) OFFICE/OUTPATIENT VISIT EST Diagnosis: URINARY TRACT INFECTION[ICD9: 599.0] Diagnosis: URINARY RETENTION[ICD9: 788.20] Belia Zacharynilson BELIA Yuridia REID [facility] CPT-4: 53399 11/10/2012 ([id number]) OFFICE/OUTPATIENT VISIT EST Diagnosis: TACHYCARDIA[ICD9: 785.0] Diagnosis: SYNCOPE AND COLLAPSE[ICD9: 780.2] Diagnosis: CONSCIOUSNS ALTERAT NEC[ICD9: 780.09] Belia CALVO Yuridia [facility] CPT-4: 73296 09/02/2012 OFFICE/OUTPATIENT VISIT EST Diagnosis: TACHYCARDIA[ICD9: 785.0] Diagnosis: SYNCOPE AND COLLAPSE[ICD9: 780.2] Belia REID [facility] CPT-4: 93023 08/04/2012 ([id number]) OFFICE/OUTPATIENT VISIT EST Diagnosis: Loss of consciousness[ICD9: 780.09] Diagnosis: Tachycardia[ICD9: 785.0] Diagnosis: MALAISE AND FATIGUE[ICD9: 780.79] Belia REID [facility] CPT-4: 33343 07/21/2012 ([id number]) OFFICE/OUTPATIENT VISIT EST Diagnosis: BRONCHITIS, ACUTE[ICD9: 466.0] Diagnosis: ASTHMA NOS[ICD9: 493.90] Belia POOLE [facility] CPT-4: 85115 07/02/2012 ([id number]) OFFICE/OUTPATIENT VISIT EST Diagnosis: CEPHALGIA[ICD9: 784.0] Belia CORNELLLINE Yuridia Peguero [facility] CPT-4: 40111 06/25/2012 ([id number]) OFFICE/OUTPATIENT VISIT EST Diagnosis: GERD[ICD9: 530.81] Diagnosis: DIARRHEA[ICD9: 787.91] Diagnosis: URINARY TRACT INFECTION[ICD9: 599.0] Diagnosis: ASTHMA NOS[ICD9: 493.90] Diagnosis: ALLERGIC RHINITIS[ICD9: 477.9] Belia CORNELLLINE Bushra [facility] CPT-4: 07316 06/24/2012 ([id number]) OFFICE/OUTPATIENT VISIT EST Diagnosis: MIGRAINE NOS/NOT INTRCBL[ICD9: 346.90] Diagnosis: TREMOR NEC[ICD9: 333.1] Diagnosis: CHRONIC PAIN SYNDROME[ICD9: 338.4] Belia Humphriesisabellaannie HSUSONIA SALAZAR Yuridia [facility] CPT-4: 45115 05/20/2012 ([id number]) OFFICE/OUTPATIENT VISIT EST Diagnosis: DIZZINESS/VERTIGO[ICD9: 780.4] Diagnosis: PALPITATIONS[ICD9: 785.1] Diagnosis: TREMOR NEC[ICD9: 333.1] Diagnosis: ANXIETY STATE NOS[ICD9: 300.00] Diagnosis: POSTTRAUMATIC STRESS DISORDER[ICD9: 309.81] Belia REID TierPM [facility] CPT-4: 85704 05/08/2012 ([id number]) OFFICE/OUTPATIENT VISIT EST Diagnosis: MIGRAINE NOS/NOT INTRCBL[ICD9: 346.90] Diagnosis: FIBROMYALGIA[ICD9: 729.1] Diagnosis: SYNCOPE AND COLLAPSE[ICD9: 780.2] Diagnosis: Diabetic peripheral neuropathy[ICD9: 250.60] Belia REID TierPM [facility] CPT-4: 84326 04/22/2012 OFFICE/OUTPATIENT VISIT EST Diagnosis: ROTATOR CUFF DIS NEC[ICD9: 726.19] Diagnosis: JOINT PAIN-SHLDER[ICD9: 719.41] Diagnosis: DYSPEPSIA[ICD9: 536.8] Belia TomlinsonMayda RALF [facility] CPT-4: 12575 02/13/2012 ([id number]) OFFICE/OUTPATIENT VISIT EST Diagnosis: MIGRAINE NOS/NOT INTRCBL[ICD9: 346.90] Diagnosis: GERD[ICD9: 530.81] Diagnosis: DYSPEPSIA[ICD9: 536.8] Belia CORNELLLINE BushraMayda RAL[facility] CPT-4: 40447 01/28/2012 OFFICE/OUTPATIENT VISIT EST Diagnosis: CEPHALGIA[ICD9: 784.0] Diagnosis: MIGRAINE NOS/NOT INTRCBL[ICD9: 346.90] Diagnosis: GERD[ICD9: 530.81] Diagnosis: INSOMNIA NOS[ICD9: 780.52] Belia CORNELLLINE Yuridia DOMINGUEZ TierPM [facility] CPT-4: 30688 12/26/2011 ([id number]) OFFICE/OUTPATIENT VISIT EST Diagnosis: CEPHALGIA[ICD9: 784.0] Diagnosis: MIGRAINE NOS/NOT INTRCBL[ICD9: 346.90] Diagnosis: MALAISE AND FATIGUE[ICD9: 780.79] Diagnosis: FIBROMYALGIA[ICD9: 729.1] Diagnosis: ALLERGIC RHINITIS[ICD9: 477.9] Belia HSUQUELINE Bushra Mayda ANUSHKA TierPM [facility] CPT-4: 09206 11/14/2011 ([id number]) OFFICE/OUTPATIENT VISIT EST Diagnosis: MALAISE AND FATIGUE[ICD9: 780.79] Diagnosis: MUSCLE WEAKNESS-GENERAL[ICD9: 728.87] Diagnosis: MIGRAINE NOS/NOT INTRCBL[ICD9: 346.90] Diagnosis: JOINT PAIN-SHLDER[ICD9: 719.41] Belia CORNELLLINE BushraMayda ANUSHKA [facility] CPT-4: 21562 09/12/2011 ([id number]) OFFICE/OUTPATIENT VISIT EST Diagnosis: CONCUSSION[ICD9: 850.9] Diagnosis: Ataxia[ICD9: 781.3] Diagnosis: DIZZINESS/VERTIGO[ICD9: 780.4] Belia CORNELLLINE Bushra Mayda ANUSHKA [facility] CPT-4: 06444 08/15/2011 ([id number]) OFFICE/OUTPATIENT VISIT EST Diagnosis: THROMBOPHLEBITIS[ICD9: 451.9] Diagnosis: Subacromial bursitis[ICD9: 726.19] Diagnosis: ALLERGIC RHINITIS[ICD9: 477.9] Diagnosis: Lipoma[ICD9: 214.9] Belia CORNELLLINE BushraMayda [facility] CPT-4: 23961 08/09/2011 ([id number]) OFFICE/OUTPATIENT VISIT EST Diagnosis: THROMBOPHLEBITIS[ICD9: 451.9] Diagnosis: Arm pain[ICD9: 729.5] Diagnosis: Clostridium difficile colitis[ICD9: 008.45] Diagnosis: URINARY TRACT INFECTION[ICD9: 599.0] Belia Zacharynilson Shi [facility] CPT-4: 95555 07/03/2011 ([id number]) OFFICE/OUTPATIENT VISIT EST Diagnosis: ARTHRALGIA-MULTIPLE SITES[ICD9: 719.49] Diagnosis: Muscle cramp[ICD9: 729.82] Diagnosis: INSOMNIA NOS[ICD9: 780.52] [facility] CPT-4: 90797 06/04/2011 OFFICE/OUTPATIENT VISIT EST Diagnosis: Headache[ICD9: 784.0] Diagnosis: Allergic rhinitis[ICD9: 477.9] Belia [facility] CPT-[facility]: 76543 05/03/2011 OFFICE/OUTPATIENT VISIT EST Diagnosis: LUMB/LUMBOSAC DISC DEGEN[ICD9: 722.52] Diagnosis: MIGRAINE NOS/NOT INTRCBL[ICD9: 346.90] Diagnosis: CHRONIC PAIN SYNDROME[ICD9: 338.4] Diagnosis: RESTLESS LEGS SYNDROME[ICD9: 333.94] Belia Zacharynilson ARNOLD Yuridia REID [facility] CPT-4: 61392 04/05/2011 OFFICE/OUTPATIENT VISIT EST Diagnosis: MIGRAINE NOS/NOT INTRCBL[ICD9: 346.90] Diagnosis: GERD[ICD9: 530.81] Belia REID [facility] CPT-4: 32263 03/08/2011 OFFICE/OUTPATIENT VISIT EST Diagnosis: URINARY TRACT INFECTION[ICD9: 599.0] Diagnosis: Vertigo[ICD9: 780.4] Diagnosis: GERD[ICD9: 530.81] Belia [facility] CPT-4: 81373 01/24/2011 OFFICE/OUTPATIENT VISIT EST Diagnosis: Hypotension[ICD9: 458.9] Diagnosis: Syncopal episodes[ICD9: 780.2] Diagnosis: MIGRAINE NOS/NOT INTRCBL[ICD9: 346.90] Diagnosis: MALAISE AND FATIGUE[ICD9: 780.79] Beliasandy Paredes BushraMayda [facility] CPT-4: 50932 01/02/2011 OFFICE/OUTPATIENT VISIT EST Diagnosis: Tinea cruris[ICD9: 110.3] Diagnosis: Intertrigo[ICD9: 695.89] Diagnosis: MIGRAINE NOS/NOT INTRCBL[ICD9: 346.90] Belia COKER Yuridia [facility] CPT-4: 93169 12/07/2010 OFFICE/OUTPATIENT VISIT EST Diagnosis: PALPITATIONS[ICD9: 785.1] Diagnosis: ANXIETY STATE NOS[ICD9: 300.00] Belia Zacharynilson BRUNSON BushraMayda [facility] CPT-4: 27097 11/16/2010 OFFICE/OUTPATIENT VISIT EST Diagnosis: URINARY TRACT INFECTION[ICD9: 599.0] Diagnosis: MIGRAINE NOS/NOT INTRCBL[ICD9: 346.90] Iraida Robert SONJA [facility] CPT-4: 76265 11/02/2010 OFFICE/OUTPATIENT VISIT EST Diagnosis: ALLERGIC RHINITIS[ICD9: 477.9] Diagnosis: ANXIETY STATE NOS[ICD9: 300.00] Belia BRUNSON [facility] CPT-4: 56215 10/18/2010 OFFICE/OUTPATIENT VISIT EST Belia [facility]UNSON [facility] CPT- 4: 25657 09/19/2010 OFFICE/OUTPATIENT VISIT EST Belia BRUNSON [facility] CPT- 4: 78405 09/06/2010 ([id number]) OFFICE/OUTPATIENT VISIT EST Belia CASILLAS [facility] CPT-4: 17790 08/10/2010 ([id number]) OFFICE/OUTPATIENT VISIT EST Belia CASILLAS [facility] CPT-4: 39637 05/11/2010 ([id number]) OFFICE/OUTPATIENT VISIT, EST Belia HSU [facility] CPT-4: 38959 04/06/2010 ([id number]) OFFICE/OUTPATIENT VISIT, EST Belia Anushka [facility] CPT-4: 59978 02/09/2010 ([id number]) OFFICE/OUTPATIENT VISIT, EST Belia HSU [facility] CPT-4: 46196 01/05/2010 ([id number]) OFFICE/OUTPATIENT VISIT, EST Belia Humphriesisabellaannie [facility] CPT-4: 06672 12/07/2009 ([id number]) OFFICE/OUTPATIENT VISIT, EST Belia Zacharyisabellaannie [facility] CPT-4: 24006 11/08/2009 ([id number]) OFFICE/OUTPATIENT VISIT, EST Belia Zacharyisabellaannie ARACELIS [facility] CPT-4: 87273 10/24/2009 ([id number]) OFFICE/OUTPATIENT VISIT, EST Belia Zacharynilson [facility] CPT-4: 58041 07/25/2009 ([id number]) OFFICE/OUTPATIENT VISIT, EST Belia Reid ARACELIS [facility] CPT-4: 53030 05/26/2009 Plan of Care Planned Activity Notes Codes Status Date Visit Diagnosis Plan: Yawning Discussion: discussed wi [...] new home sleep study on patient through [facility] to assess severity of symptoms, patient does wear her oxygen at night though. educated on importance of wearing oxygen at all times, even when in public. ICD-9 : 786.09 ICD-10 : R06.89 08/10/2019 Appointment: Pattie Sotomayor [address] [place], [place] [id number] ACUTE ILLNESS 08/10/2019 Visit Diagnosis Plan: Left [...] ICD-10 : R10.2 08/04/2019 [facility]ment[facility] [address] [id number] [facility] 08/04/2019 Visit Diagnosis Plan: Inspiratory stridor Discussion: Continue oxygen via NC at 2 L Continue ativan at QID Follow Up: 4 weeks ICD-9 : 786.1 ICD-10 : R06.1 07/06/2019 Visit Diagnosis Plan: Diarrhea Discussion: Restart Col estid at once daily ICD-9 : 787.91 ICD-10 : R19.7 07/06/2019 Appointment: Belia Reid WPtel: [phone] [facility] TELEMEDICINE 07/06/2019 Visit Diagnosis Plan: Left leg [...] R06.00 06/24/2019 [facility]ment[phone] [facility] [facility] 06/24/2019 Visit Diagnosis Plan: Colitis Discussion: Levaquin/Fla gyl [place] Diet ICD-9 : 558.9 ICD-10 : K52.9 06/16/2019 Visit Diagnosis Plan: Acute bronchitis Discussion: Cov er with levaquin Increase SVNs with albuterol to QID Has oxygen using q HS routinely and prn To ER if oxygen levels drop or worsening respiratory symptoms ICD-9 : 466.0 ICD-10 : J20.9 06/16/2019 Appointment: Belia Reidtel: [address] [place] [address] TELEMEDICINE 06/16/2019 Patient Education: Levaquin- [employer] [id number] [email or web address] Completed 06/16/2019 Visit Diagnosis Plan: Diarrhea Discussion: Vancomycin for 10 days and notify if not improving or worsening BLAND diet Hydrate ICD-9 : 787.91 ICD-10 : R19.7 06/08/2019 Appointment: Belia Reid WPtel: [address] [place] [address] TELEMEDICINE 06/08/2019 Visit Diagnosis Plan: Colitis Discussion: Flagyl plus cipro to cover for both colitis and UTI Notify or to ER if worsening ICD-9 : 558.9 ICD-10 : K52.9 05/26/2019 Visit Diagnosis Plan: Acute febrile illness Discussion : Notify if worsens ICD-9 : 780.60 ICD-10 : R50.9 05/26/2019 Appointment: Belia Reid WPtel: [address] [place] [address] TELEMEDICINE 05/26/2019 Appointment: Pattie Sotomayor [address] RESCHEDULED 05/18/2019 Visit Diagnosis Plan: Chronic obstructive pulmonary di sease, unspecified Discussion: Recommend pulmonary rehab Patient states she never went to pulmonary rehab due to cost as well as transportation issues Finish trelagy Stop singulair Decrease hydroxyzine to 25mg po q HS Fwup [address] scan of Chest results discussed ICD-9 : 496 ICD-10 : J44.9 05/13/2019 Appointment: Belia Reid WPtel: [address] [place] [address] Hospital Follow Up 05/13/2019 Visit Diagnosis Plan: COUGH Discussion: Check CT scan of chest ICD-9 : 786.2 ICD-10 : R05 05/06/2019 Visit Diagnosis Plan: Stridor Discussion: Add Trelagy 1 p daily Add Singulair 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 [employer]/resources/getResource/61/3754085m-y64l-81f0-vs Completed 05/06/2019 Appointment: Belia Reid WPtel: [address] [place] [address] US RESCHEDULED 04/30/2019 Visit Diagnosis Plan: Stridor [...] : G25.5 04/29/2019 Appointment: Belia Reid WPtel: [address] [place] [address] Hospital Follow Up 04/29/2019 Patient Education: Valium- OptimizeRX Coupon [id number] https://www.[employer]. [employer]/resources/getResource/61/h71920wh-715h-9x78-5e Completed 04/29/2019 Visit Diagnosis Plan: Flank pain [...] ICD-10 : R63.5 04/16/2019 Appointment: Pattie Sotomayor [address] [place] [address] ACUTE ILLNESS 04/16/2019 Patient Education: cyclobenzaprine- OptimizeRX Coupon [id number] https://www.[employer]. [employer]/resources/getResource/61/bj04g7n3-3908-3542-j7 Completed 04/16/2019 Visit Diagnosis Plan: Migraine, unspecif ied, not intractable, without status migrainosus Discussion: Increase gabapentin to 600mg po BID ICD-9 : 346.90 ICD-10 : G43.909 04/08/2019 Visit Diagnosis Plan: Generalized pruritus Discussion: Hydroxyzine 25mg po TID for itching and anxiety ICD-9 : 698.9 ICD-10 : L29.9 04/08/2019 Appointment: Belia Redi WPtel: [address] [place] [address] ACUTE ILLNESS 04/08/2019 Visit Diagnosis Plan: Cervicalgia [...] : M75.52 01/22/2019 Appointment: Belia Reid WPtel: [address] [place] [address] Hospital Follow Up 01/22/2019 Visit Diagnosis Plan: Abdominal pain Discussion: urine culture sent to assess for any infection. rocephin given in office to cover for pyelonephritis. instructed to push fluids. call office with any new or worsening symptoms. ICD-9 : 789.00 ICD-10 : R10.9 01/07/2019 Appointment: Pattie Sotomayor [address] [place], [place] [address] ACUTE ILLNESS 01/07/2019 Visit Diagnosis Plan: Low back pain Discussion: Stat C T of abdomen/pelvis now ICD-9 : 724.2 ICD-10 : M54.5 12/24/2018 Appointment: Belia Reid WPtel: [address] [place] [address] FOLLOW UP 12/24/2018 Visit Diagnosis Plan: Migraine, [...] : M79.7 11/20/2018 Appointment: Belia Reid WPtel: [address] [place] [address] ACUTE ILLNESS 11/20/2018 Patient Education: baclofen- OptimizeRX Coupon [id number] https://www.[employer]/samplemd/resources/getResource/61/5q1826c1-zh9k-03zo-77 Completed 11/20/2018 Visit Diagnosis Plan: Migraine, unspecif ied, intractable, without status migrainosus Discussion: toradol/phenergan given in o ffice (60 mg toradol, 12.5 mg phenergan). instructed to call if no improvement or worsening. instructed to follow up with endoscopy support specialist since headaches are occurring more frequently to make sure vision is not the cause. ICD-9 : 346.91 ICD-10 : G43.919 11/04/2018 Visit Diagnosis Plan: Acute sinusitis, unspecified Dis cussion: zithromax prescribed to cover for sinus infection due to length of symptoms and clinincal s/s. ICD-9 : 461.9 ICD-10 : J01.90 11/04/2018 Appointment: Pattie Sotomayor [address] [place] [address] ACUTE ILLNESS 11/04/2018 Appointment: Bel[facility]el[facility] [address] [facility] [facility]ED 09/24/2018 Visit Diagnosis Plan: Type 2 diabetes me llitus with diabetic neuropathy, unspecified Discussion: Retry gabapentin 300mg po q HS ICD-9 : 250.60 ICD-10 : E11.40 09/18/2018 Visit Diagnosis Plan: Vitamin D deficiency, unspecifie d Discussion: Increase Vitamin D3 to 10,000 u daily ICD-9 : 268.9 ICD-10 : E55.9 09/18/2018 Visit Diagnosis Plan: Encounter for [facility] adult medical examination without abnormal findings [...] I10 09/18/2018 Appointment: Belia Reid [facility]Ptel[facility] [address] [facility] [facility] Well Visit 09/18/2018 Patient Education: gabapentin- OptimizeRX Coupon [id number] https://www.[employer].com/samplemd/resources/getResource/61/2m75lx03-6tm2-5wsu-d6 Completed 09/18/2018 Visit Diagnosis Plan: Pain in [...] 724.5 ICD-10 : M54.89 09/08/2018 Appointment: Pattie Sotomayora Drive [id number] ACUTE ILLNESS 09/08/2018 Patient Education: prednisone- OptimizeRX Coupon [id number] https://www.[employer].com/samplemd/resources/getResource/61/9e6vb97a-6061-14k1-pw Completed 09/08/2018 Visit Diagnosis Plan: Pruritus, unspecified [...] ICD-10 : E10.9 08/20/2018 Appointment: Belia Reidtel: [address] [place] [address] ACUTE ILLNESS 08/20/2018 Patient Education: Lexapro- OptimizeRX Coupon [id number] Completed 08/20/2018 Patient Education: hydroxyzine HCl- OptimizeRX Coupon [id number] Completed 08/20/2018 Care Plan: MAMMOGRAM SCREENING LOINC : 2 6347-5 Pending 08/20/2018 Visit Diagnosis Plan: Paroxysmal atrial fibrillation D iscussion: Discuss eliquis need with cardiology at [facility] due to cost ICD-9 : 427.31 ICD-10 : I48.0 06/19/2018 Visit Diagnosis Plan: Hypotension due to drugs Discuss ion: Discussed decreasing cardizem dose due to low BP and edema but sees cardiology next week Follow Up: 1 months ICD-9 : 458.8 ICD-10 : I95.2 06/19/2018 Appointment: Belia Reid WPtel: [facility] FOLLOW UP 06/19/2018 Visit Diagnosis Plan: [...] : R61 06/09/2018 Appointment: Belia Reid WPtel: [address] [place], [place] [address] FOLLOW UP 06/09/2018 Care Plan: CHEST X-RAY 2VW FRONTAL&LATL LOINC : 07681-8 Pending 05/26/2018 Visit Diagnosis Plan: Supraventricular tachycardia [...] : R53.1 05/21/2018 Appointment: Belia Reid WPtel: [address] [place], [place] [address] Hospital Follow Up 05/21/2018 Visit Diagnosis Plan: Cervical disc diso rder with radiculopathy, unspecified cervical region Discussion: Scheduled for surgery on 06/02 10/[address] Faulkner ICD-9 : 722.0 ICD-10 : M50.10 04/16/2018 Appointment: Belia Reid WPtel: [address] [place], [place] [phone] Hospital Follow Up 04/16/2018 Visit Diagnosis Plan: [...] ICD-10 : G43.919 04/01/2018 Appointment: Pattie Sotomayor [address] [place] [address] ACUTE ILLNESS 04/01/2018 Appointment: Belia Reid WPtel: [facility] [address] 03/17/2018 Visit Diagnosis Plan: Chronic obstructiv e [...] : E11.65 03/06/2018 Appointment: Belia Reid WPtel: [facility] Hospital Follow Up 03/06/2018 Visit Diagnosis Plan: Cervicalgia Discussion: spoke wi th dr. reid about patient. increased gabapentin to bid and started on celebrex bid. tramadrol rx written out to take prn. keep scheduled appt next week for myelogram. ICD-9 : 723.1 ICD-10 : M54.2 02/05/2018 Appointment: Pattie Sotomayor [address] [place] [address] ACUTE ILLNESS 02/05/2018 Care Plan: X-RAY EXAM NECK SPINE 4/5VWS cervical LOINC : 88024-5 Pending 01/21/2018 Visit Diagnosis Plan: Candidiasis of [...] ICD-10 : M54.2 01/20/2018 Appointment: Pattie Sotomayor [address] [place] [address] ACUTE ILLNESS 01/20/2018 Visit Diagnosis Plan: Pain in thoracic spine Discussio n: Proceed with CT scan of thoracic spine Will likely need PT ICD-9 : 724.1 ICD-10 : M54.6 12/25/2017 Appointment: Belia Reid WPtel: [address] [place] [address] FOLLOW UP 12/25/2017 Care Plan: CT THORAX W/O DYE LOINC : 473 66-0 Pending 12/25/2017 Visit Diagnosis Plan: Pain in thoracic spine Discussio n: Stretches Alternated heat/ice Topical aspercreme with lidocaine Flexeril Recheck 1 week Flu and Pneumovax given ICD-9 : 724.1 ICD-10 : M54.6 12/17/2017 Appointment: Belia Reid WPtel: [address] [place] [address] ACUTE ILLNESS 12/17/2017 Patient Education: Patient Medication [...] : J44.1 10/30/2017 Appointment: Belia Reid WPtel: [facility] [place] [phone] FOLLOW UP 10/30/2017 Patient Education: Patient Medication Summary Completed 10/30/2017 Visit Diagnosis Plan: Chronic obstructiv e pulmonary disease with acute lower respiratory infection Discussion: Continue SVNs with albuterol q4hrs Add Trelagy 1 inhalation daily Finish steroids Increase water intake Follow Up: 1 weeks ICD-9 : 496 ICD-10 : J44.0 10/23/2017 Appointment: Belia Reid WPtel: [address] [place], [place] [phone] WORK IN 10/23/2017 Patient Education: Patient Medication Summary Completed 10/23/2017 Appointment: Belia Reid WPtel: [address] [place], [place] [phone] NO SHOW 10/16/2017 Visit Diagnosis Plan: Confusional [...] : E11.65 09/17/2017 Appointment: Belia Reid WPtel: [address] [place], [place] [phone] Annual Well Visit 09/17/2017 Patient Education: Patient Medication Summary Completed 09/17/2017 Appointment: Belia Reid WPtel: [address] [place], [place] [phone] US INJECTION 08/26/2017 Patient Education: Patient Medication Summary Completed 08/26/2017 Appointment: Belia Reidtel: [address] [place], [place] [phone] US CANCELED 07/31/2017 Visit Diagnosis Plan: Encounter [...] ICD-10 : J20.9 07/19/2017 Appointment: Pattie Sotomayor [facility] [address] ACUTE ILLNESS 07/19/2017 Patient Education: Patient Medication Summary Completed 07/19/2017 Care Plan: MAMMOGRAM SCREENING LOINC : 2 6347-5 Pending 07/19/2017 Patient Education: Patient Medication Summary Completed 06/05/2017 Care Plan: LIPID PANEL LOINC : 66942-3 Pending 06/05/2017 Care Plan: A1C HPLC LOINC : 37728-4 Pending 06/05/2017 Visit Diagnosis Plan: Rash and [...] ICD-10 : R21 05/29/2017 Appointment: Pattie Sotomayor [email or web address] [address] FOLLOW UP 05/29/2017 Patient Education: Patient Medication Summary Completed 05/29/2017 Visit Diagnosis Plan: Tinea corporis Discussion: Diflu can and topical nystatin Follow Up: 2 weeks ICD-9 : 110.5 ICD-10 : B35.4 05/07/2017 Visit Diagnosis Plan: Diarrhea, unspecified Discussion : Diflucan Cholestyramine Recheck 2weeks ICD-9 : 787.91 ICD-10 : R19.7 05/07/2017 Appointment: Belia Reidtel: [address] [place], [place] [address] US FOLLOW UP 05/07/2017 Patient Education: Patient Medication Summary Completed 05/07/2017 Appointment: Belia Reid WPtel: [address] [place] [address] US RESCHEDULED 04/30/2017 Visit Diagnosis Plan: Chronic obstructiv e pulmonary disease with (acute) exacerbation Discussion: Finish prednisone Continue S VNS with albuterol ICD-9 : 491.21 ICD-10 : J44.1 03/18/2017 Visit Diagnosis Plan: Stridor Discussion: Increase Ati van 0.5mg po to TID routinely for next week then can go back to prn ICD-9 : 786.1 ICD-10 : R06.1 03/18/2017 Appointment: Belia Reid WPtel: [address] [place] [address] ER Follow UP 03/18/2017 Patient Education: Patient [...] ICD-10 : E11.65 02/27/2017 Appointment: Belia Reidtel: [address] [place], [place] [phone] US FOLLOW UP 02/27/2017 Patient Education: Patient [...] Pattie Sotomayor [address] [facility] [address] ACUTE ILLNESS 02/22/2017 Patient Education: Patient Medication [...] J18.9 01/23/2017 Appointment: Belia Reid WPtel: [address] [facility] ER Follow UP 01/23/2017 Patient Education: Patient Medication Summary Completed 01/23/2017 Appointment: Pattie Sotomayor [address] [place], [place] [phone] CANCELED 01/17/2017 Appointment: Pattie Sotomayor [address] [place], [place] [phone] Annual Well Visit 01/14/2017 Visit Diagnosis Plan: Type 2 diabetes mellitus with hy perglycemia Discussion: Check CMP, HbA1C Flu shot and Prevnar 13 given Follow Up: 3 months ICD-9 : 250.02 ICD-10 : E11.65 12/20/2016 Visit Diagnosis Plan: Localized edema Discussion: Low Na diet Compression socks/Elevate feet ICD-9 : 782.3 ICD-10 : R60.0 12/20/2016 Appointment: Belia Reid [facility]Ptel[facility] [address] [facility] FO[facility] UP 12/20/2016 Patient Education: Patient Medication Summary Completed 12/20/2016 Patient Education: Patient Medication Summary Completed 10/10/2016 Visit Plan: Xrays of cervical, thoracic and lumbar spine at [facility] for Mobic (stop NSAIDS except Tylenol) and Flexeril UA sent for C&S Using SVN Call in 2-3 days if pain not improved or any worsening 10/08/2016 Appointment: Celeste Ferreira [facility]Ptel[facility] [facility] [facility] 10/08/2016 Patient Education: Patient Medication [...] : E11.65 09/19/2016 Appointment: Belia Reid WPtel: [facility] 09/18 confirmed`sl FOLLOW UP 09/19/2016 Patient [...] : R10.84 08/20/2016 Appointment: Belia Reid WPtel: [address] [place], [place] [address] 08/16 confirmed~sl FOLLOW UP 08/20/2016 Patient Education: [...] : J44.9 06/19/2016 Appointment: Belia Reid WPtel: [address] [place], [place] [phone] 06/18 confirmed ~ Hospital Follow Up 06/19/2016 [...] : Z87.440 06/04/2016 Appointment: Belia Reid WPtel: [address] [place] [address] 06/01 confirmed~sl FOLLOW UP 06/04/2016 Patient Education: [...] : R06.1 05/02/2016 Appointment: Belia Reid WPtel: [address] [place] [address] 05/01 confirmed [facility] Hospital Follow [...] : N39.0 04/03/2016 Appointment: Belia Reid WPtel: [address] [place] [address] [facility] 04/03/2016 Patient Education: Patient Medication Summary Completed 04/03/2016 Visit Plan: Lungs are clear Her symptoms and exam are all upper airway restriction/constriction Can try supportive care Rx as above Follow up PRN 02/29/2016 Appointment: Lidia Hwang [address] [place] [address] ACUTE ILLNESS 02/29/2016 Patient Education: Patient Medication Summary Completed 02/29/2016 Visit Plan: Toradol/Phenergan today for Migraine Change to Clindamycin to cover lactobacillus for UTI Cover with flagyl due to hx of C. Diff 02/02/2016 Appointment: Belia Reid WPtel: [address] [place] [address] [facility] 02/02/2016 Patient Education: Patient Medication Summary Completed 02/02/2016 Visit Plan: Increase neurontin to 300mg q AM and 600mg q PM Discussed neurology re-evaluation Flu shot given Need to check on Pneumonia shot Rx written out for albuterol 01/05/2016 Appointment: Belia Reid WPtel: [address] [place] [address] 01/03 confirmed ~sl Annual Well Visit 01/05/2016 Patient Education: Patient Medication Summary Completed 01/05/2016 Visit Plan: Cipro Culture urine hydrate Flexeril refilled Alternate heat and ice for back Increase gabapentin to 300mg po BID Notify if worsens 12/05/2015 Appointment: Belia Reid WPtel[facility] [address] [facility] 11/30 confirmed~sl ACUTE ILLNESS 12/05/2015 Patient Education: Patient Medication Summary Completed 12/05/2015 Patient Education: Patient Medication Summary Completed 10/27/2015 Care Plan: COMPREH[place]AB[place] : 236[address]-5 Pending 10/27/2015 Care Plan: A1C HPLC LOINC : 22997-7 Pending 10/27/2015 Visit Plan: Lungs are CTA today and is f eeling improved overall Finish meds as ordered Continue inhalers and neb treatments Discussed migraine treatment options She does not feel she needs anything additional added today Refill of Januvia sent since no samples are available today 10/26/2015 Appointment: Lidia Hwang [address] Hospital Follow Up 10/26/2015 Appointment: Lidia Hwang [address] [facility] CANCELED 10/26/2015 Patient Education: Patient Medication Summary Completed 10/26/2015 Patient Education: Daytonuvia - 18+ - KENNETH - No [place] Completed 10/26/2015 Visit Plan: Office dip still abnormal Cu lture pending Switch to cipro - stop macrobid Push fluids - avoid caffeine Will call with culture results when available Follow up if worsening 10/05/2015 Appointment: Lidia Hwang [address] ER Follow UP 10/05/2015 Patient Education: Patient Medication Summary Completed 10/05/2015 Visit Plan: Proceed with PT for document ation of ROM and strength of all extremities Proceed with Power Mobility Device Trial of neurontin 300mg q HS--lyrica helped but patient unable to afford Recheck 1month 09/15/2015 Appointment: Belia Reid WPtel: [address] [place] [address] 09/13 confirmed~sl SPECIAL 09/15/2015 Patient Education: Patient Medication Summary Completed 09/15/2015 Visit Plan: Fille out Loan Discharge Pap erwork for total and permanent disability 08/25/2015 Patient Education: Patient Medication Summary Completed 08/25/2015 Visit Plan: Discussed with Dr Anushka Haywood at CT of head Will get last date of carotid doppler from her quality assurance assessor and update if needed 08/24/2015 Appointment: [facility] [facility] 08/22 confirmed~sl ACUTE ILLNESS 08/24/2015 Patient Education: Patient Medication Summary Completed 08/24/2015 Patient Education: Patient Medication Summary Completed 08/24/2015 Care Plan: US EXAM OF HEAD AND NECK carotid Ultrasound LOIN C : 27465-3 Pending 08/24/2015 Visit Plan: Long discussion about diet A ccuchecks daily Check HbA1C, CMP Change requip to mirapex 07/05/2015 Appointment: Belia Reid WPtel: [facility] 07/03 confirmed ~sl FOLLOW UP 07/05/2015 Patient Education: Patient Medication Summary Completed 07/05/2015 Visit Plan: Add Breo ellipta 100 1 p BID Continue SVNs with duoneb QID 06/06/2015 Appointment: Belia Reid WPtel: [address] [place], [place] [phone] Patient is calling for a ride, then [...] improving 05/23/2015 Appointment: Huong Osborne WPtel: [address] [place] [address] ACUTE ILLNESS 05/23/2015 Appointment: Lidia Hwang [address] [place] [address] ER Follow UP 05/23/2015 Patient Education: Patient Medication Summary Completed 05/23/2015 Visit Plan: Check pancreatic enzymes and US of pancreas as patient can't understand why she has diabetes since has no family history Discussed weight, diet, exercise all play an important role in diabetes and are risk factors as well Continue Januvia and accuchecks daily 05/05/2015 Appointment: Belia Reid WPtel: [address] [place] [address] US FOLLOW UP 05/05/2015 Patient Education: Patient Medication Summary Completed 05/05/2015 Care Plan: US EXAM ABDOM COMPLETE LOINC : 62578-5 Ordered 05/05/2015 Visit Plan: Start Januvia 100mg daily [place] with diflucan and culture urine Accuchecks daily alternating times Recheck 6weeks 03/30/2015 Appointment: Belia Reid WPtel: [address] [place] [address] 03/29 confirmed~lb FOLLOW UP 03/30/2015 Patient Education: Patient Medication Summary Completed 03/30/2015 Appointment: Belia Reid WPtel: [address] [place], [place] [phone] 03/01 needs reschedule due to payment and insurance ~sl FOLLOW UP 03/02/2015 Visit Plan: Patient was just in ER last night so has not filled scripts yet Start Carafate and Flagyl and Cipro Add Hyophen 1 po BID Recheck 1mo 02/03/2015 Appointment: Belia Reid WPtel: [address] [place], [place] [phone] [place] 02/02lm ~sl...02/03/15 appt confirmed cn ACUTE I LLNESS 02/03/2015 Patient Education: Patient Medication Summary Completed 02/03/2015 Visit Plan: Warm soaks to vaginal area K elex and Diflucan and observe Zofran to use prn 12/29/2014 Appointment: Belia Reid WPtel: [address] [place], [place] [phone] 12/28 Confirmed ~ ACUTE ILLNESS 12/29/2014 Patient Education: Patient Medication Summary Completed 12/29/2014 Appointment: Huong Osborne WPtel: [address] [place], [place] [phone] FOLLOW UP 09/24/2014 Appointment: Belia Reid WPtel: [address] [place], [place] [address] 09/15 confirmed - FOLLOW UP 09/16/2014 Visit Plan: Increase requip to 2mg po BI D Increase lyrica to 225mg total a day by adding an extra 75mg in AM Recheck in 2weeks Continue to patch left eye while sleeping 09/02/2014 Appointment: Belia Reid WPtel: [address] [place], [place] [phone] 09/01 appt confirmed [facility] Follow Up 09/02 Patient Education: Patient Medication Summary Completed 09/02/2014 Visit Plan: To Via Ayanna for observat ion to R/O CVA 08/25/2014 Appointment: Huong Osborne WPtel: [address] [place], [place] [address] ACUTE ILLNESS 08/25/2014 Patient Education: Patient Medication Summary Completed 08/25/2014 Referral: Aaron Jonas WPtel: [facility] [address], [address] [id number] In [place] location Initiated 04/26/2014 Referral: Brian Srinivasan [facility]el[id number] Ref[facility] Initiated 04/20/2014 Appointment: Belia Reid WPtel: [address] [place] [address] ER Follow UP 04/01/2014 Patient Education: Patient Medication Summary Completed 04/01/2014 Care Plan: MYELOGRAPHY NECK SPINE LOINC : 25594-9 Ordered 04/01/2014 Visit Plan: Continue Symbicort 160 at 2p BID Continue SVNs with duoneb at least QID Finish Levaquin Recheck 1mo on lyrica 03/16/2014 Appointment: Beila Reid WPtel: [address] [place], [place] [phone] 03/15 voicemail FOLLOW UP 03/16/2014 Patient Education: Patient Medication Summary Completed 03/16/2014 Visit Plan: Restart SVNs with duoneb QID Repeat prednisone Levaquin Continue symbicort Keep lyrica at same dose Recheck 1week 03/09/2014 Appointment: Belia Reid WPtel: [address] [place] [address] FOLLOW UP 03/09/2014 Patient Education: Patient Medication Summary Completed 03/09/2014 Appointment: Belia Reid WPtel: [address] [place], [place] [phone] 03/03 showed up 15 minutes late for appt -- put her on Huong's side for 10:45am FORGIVEN PER DR FOLLOW UP 03/03/2014 Appointment: Huong Osborne WPtel: [address] [place], [place] [address] [place] FOLLOW UP 03/03/2014 Patient Education: Patient Medication Summary Completed 03/03/2014 Appointment: Huong Osborne WPtel: [address] [place], [place] [phone] ER Follow UP 03/01/2014 Patient Education: Patient Medication Summary Completed 03/01/2014 Visit Plan: Add carafate for this next m onth Increase lyrica to 150mg q HS 02/09/2014 Appointment: Belia Reid WPtel: [address] [place], [place] [phone] Hospital Follow Up 02/09/2014 Patient Education: Patient Medication Summary Completed 02/09/2014 Visit Plan: Increase omeprazole back to 40mg po BID Use requip in AM and add lyrica 75mg q HS Recheck 1mo 12/23/2013 Appointment: Belia Reid WPtel: [address] [place], [place] [phone] FOLLOW UP 12/23/2013 Patient Education: Patient Medication Summary Completed 12/23/2013 Patient Education: Patient Medication Summary Completed 12/04/2013 Appointment: Belia Reid WPtel: [address] [place], [place] [phone] UA 10/30/2013 Patient Education: Patient Medication Summary Completed 10/30/2013 Appointment: Belia Reid WPtel: [address] [place] [address] UA 10/21/2013 Patient Education: Patient Medication Summary Completed 10/21/2013 Visit Plan: Cryotherapy as above TAC and hydroxyzine to use prn to itching spots and itching SKs Add Advair HFA 115/21 1 p BID 10/05/2013 Appointment: Belia Reid WPtel: [address] [place], [place] [phone] 10/01 pt called and confirmed ACUTE ILLNESS Patient Education: Patient Medication Summary Completed 10/05/2013 Appointment: Belia Reid WPtel: [address] [place], [place] [phone] will pay copay and part of past balance FOLLOW U P 08/04/2013 Patient Education: Patient Medication Summary Completed 08/04/2013 Appointment: Belia Reid WPtel: [address] [place], [place] [phone] US INJECTION 07/13/2013 Patient Education: Patient Medication Summary Completed 07/13/2013 Appointment: Huong Osborne WPtel: [address] [place], [place] [phone] ACUTE ILLNESS 07/03/2013 Patient Education: Patient Medication Summary Completed 07/03/2013 Visit Plan: Cipro and culture urine 05/27/2013 Appointment: Huong Osborne WPtel: [address] [place], [place] [id number] 05/26 confirmed appt and notified that balance and cop breaker y is due at appt time FOLLOW UP 05/27/2013 Patient Education: Patient Medication Summary Completed 05/27/2013 Appointment: Belia Reid WPtel: [address] [place], [place] [phone] [place] UA 05/25/2013 Patient Education: Patient Medication Summary Completed 05/25/2013 Appointment: Belia Reid WPtel: [address] [place], [place] [phone] [place] INJECTION 05/04/2013 Patient Education: Patient Medication Summary Completed 05/04/2013 Appointment: Belia Reid WPtel: [address] [place], [place] [phone] [place] INJECTION 04/17/2013 Patient Education: Patient Medication Summary Completed 04/17/2013 Appointment: Belia Reid WPtel: [address] [place], [place] [phone] [place] INJECTION 04/15/2013 Appointment: Belia Reid WPtel: [address] [place], [place] [phone] 04/02 FOLLOW UP 04/06/2013 Patient Education: Patient Medication Summary Completed 04/06/2013 Visit Plan: Obtain lab results including UA from [facility] 11/10/2012 Appointment: Belia Reid WPtel: [address] [place], [place] [phone] [place] ER Follow UP 11/10/2012 Patient Education: Patient Medication Summary Completed 11/10/2012 Appointment: Belia Reid WPtel: [address] [place] [address] 10/30/12 patient canceled appt due to fin ances. Offered to work something out, patient declined-LB FOLLOW UP 11/05/2012 Visit Plan: Continue Bystolic at current dose Pt has fwup with Neurology on September 16 09/02/2012 Appointment: Belia Reid WPtel: [address] [place] [address] FOLLOW UP 09/02/2012 Patient Education: Patient Medication Summary Completed 09/02/2012 Visit Plan: Continue bystolic at 5mg chris ly Sees Neurology tomorrow Use oxygen at bedtime 08/04/2012 Appointment: Belia Reid WPtel: [address] [place] [address] FOLLOW UP 08/04/2012 Patient Education: Patient Medication Summary Completed 08/04/2012 Appointment: Belia Reid WPtel: [address] [place] [address] Hospital fwup for 07/21/12. merged appointments FOLLOW UP 07/24/2012 Visit Plan: Start Bystolic 5mg daily for tachycardia Fwup with neurology for further workup Overnight O2 sat 07/21/2012 Appointment: Belia Reid WPtel: [address] [place] [address] Hospital Follow Up 07/21/2012 Patient Education: Patient Medication Summary Completed 07/21/2012 Visit Plan: SVN with Albuterol QID Add A velox 400mg daily Notify if worsens or persists 07/02/2012 Appointment: Belia Reid WPtel: [address] [place] [address] ACUTE ILLNESS 07/02/2012 Patient Education: Patient Medication Summary Completed 07/02/2012 Appointment: Belia Reid WPtel: [address] [place] [address] INJECTION 06/25/2012 Patient Education: Patient Medication Summary Completed 06/25/2012 Appointment: Belia Reid WPtel: [address] [place], [place] [phone] FOLLOW UP 06/24/2012 Patient Education: Patient Medication Summary Completed 06/24/2012 Appointment: Belia Reid WPtel: [address] [place], [place] [id number] 05/19 left message FOLLOW UP 05/20/2012 Patient [...] po TID 05/08/2012 Appointment: Belia Reid WPtel: [address] [place], [place] [phone] ACUTE ILLNESS 05/08/2012 Patient Education: Patient Medication Summary Completed 05/08/2012 Visit Plan: Continue current meds Contin ue lower dose on pain meds and Diazepam Still waiting on paperwork for botox for Migraines Will restart Neurontin at 600mg po q HS Pt going to stop Depakote due to can't afford 04/22/2012 Appointment: Belia Reid WPtel: [address] [place], [place] [phone] 04/21 Hospital Follow Up 04/22/2012 Patient Education: Patient Medication Summary Completed 04/22/2012 Visit Plan: Injection to shoulder as abo ve Continue current meds Has appointment with neurology on HAs in 02/13/2012 Appointment: Belia Reid WPtel: [address] [place], [place] [phone] Pt does not have $10 copay at [facility] time - will bring it in next week. Kianna iqbal'ed this. - [place] FOLLOW UP 02/13/2012 Patient Education: Patient Medication Summary Completed 02/13/2012 Visit Plan: Proceed with headache specia list Change nexium to Protonix Phenergan to use prn Sumatriptan to use prn Pt still on Inderal 01/28/2012 Appointment: Belia Reid WPtel: [address] [place] [address] ER Follow UP 01/28/2012 Patient Education: Patient [...] for sleep 12/26/2011 Appointment: Belia Reid WPtel: [address] [place] [address] 12/24- appt. confirmed FOLLOW UP 2 Patient Education: Patient Medication Summary Completed 12/26/2011 Appointment: Belia Reid WPtel: [address] [place] [address] [place] FOLLOW UP 11/14/2011 Patient Education: Patient Medication Summary Completed 11/14/2011 Appointment: Belia Reid WPtel: [address] [place], [place] [phone] [place] FOLLOW UP 09/12/2011 Patient Education: Patient Medication Summary Completed 09/12/2011 Visit Plan: Supportive care Decrease Liseth catalino to 50mg q HS Decrease AM dose of Valium to 5mg q HS Use Endocet sparingly 08/15/2011 Appointment: Belia Reid WPtel: [address] [place] [address] ER Follow UP 08/15/2011 Patient Education: Patient Medication Summary Completed 08/15/2011 Appointment: Belia Reid WPtel: [address] [place] [address] [place] Spoke directly to patient yesterday and confirmed the appoin tment. cn ACUTE ILLNESS 08/09/2011 Patient Education: Patient Medication Summary Completed 08/09/2011 Appointment: Belia Reid WPtel: [address] [place] [address] Hospital Follow Up 07/03/2011 Patient Education: Patient Medication Summary Completed 07/03/2011 Appointment: Belia Reid WPtel: [address] [place] [address] FOLLOW UP 06/04/2011 Patient Education: Patient Medication Summary Completed 06/04/2011 Visit Plan: Pt. wants "allergy shot" but in fact wants steroid shot. Will take a break from [facility] and try Singulair for 2 weeks. 05/03/2011 Appointment: Iraida Jones WPtel: [address] [place] [address] ACUTE ILLNESS 05/03/2011 Patient Education: Patient Medication Summary Completed 05/03/2011 Visit Plan: Neurontin 400mg q HS for 1we ek then 800mg q HS Decrease requip to 1mg q HS for 2wks then stop Fwup 2mos 04/05/2011 Appointment: Belia Reid WPtel: [address] [place] [address] FOLLOW UP 04/05/2011 Patient Education: Patient Medication Summary Completed 04/05/2011 Visit Plan: Trial of neurontin in 2wks C ontinue current meds for stomach Pt has procedure with Dr. Ortiz next week for stone removal 03/08/2011 Appointment: Belia Reid WPtel: [address] [place] [address] Hospital Follow Up 03/08/2011 Patient Education: Patient Medication Summary Completed 03/08/2011 Appointment: Belia Reid WPtel: [address] [place] [address] FOLLOW UP 02/19/2011 Visit Plan: reports increased [...] Flagyl 01/24/2011 Appointment: Iraida Jones WPtel: [address] [place] [address] ACUTE ILLNESS 01/24/2011 Patient Education: Patient Medication Summary Completed 01/24/2011 Appointment: Belia Reid WPtel: [address] [place] [address] [place] FOLLOW UP 01/02/2011 Patient Education: Patient Medication Summary Completed 01/02/2011 Appointment: Belia Reid WPtel: [address] [place] [address] FOLLOW UP 12/12/2010 Appointment: Belia Reid WPtel: [address] [place] [address] ACUTE ILLNESS 12/07/2010 Patient Education: Patient Medication Summary Completed 12/07/2010 Visit Plan: Increase Buspar to 10mg po B ID 11/16/2010 Appointment: Belia Reid WPtel: [address] [place] [address] FOLLOW UP 11/16/2010 Patient Education: Patient Medication Summary Completed 11/16/2010 Appointment: Iraida Jones WPtel: [address] [place] [address] ER Follow UP 11/02/2010 Patient Education: Patient Medication Summary Completed 11/02/2010 Visit Plan: Depo-Medrol/Kenalog given fo r allergies Add BuSpar for anxiety Oxycodone one p.o. q.i.d. for number 120 refilled 10/18/2010 Appointment: Belia Reid WPtel: [address] [place] [address] [place] FOLLOW UP 10/18/2010 Patient Education: Patient Medication Summary Completed 10/18/2010 Visit Plan: Continue current meds Discus sed epidurals for back vs PT--will proceed with epidurals to thoracolumbar region to see if helps with pain 09/19/2010 Appointment: Belia Reidtel: [address] [place], [place] [phone] FOLLOW UP 09/19/2010 Patient Education: Patient Medication Summary Completed 09/19/2010 Visit Plan: DC MS contin Check CT scan t horacic spine Fwup pending above results 09/06/2010 Appointment: Belia Reid WPtel: [address] [place], [place] [phone] FOLLOW UP 09/06/2010 Patient Education: Patient Medication Summary Completed 09/06/2010 Visit Plan: Continue current meds Restar t MS contin 15mg po BID and use oxycodone prn Use daily senokot-s 2 po BID 08/10/2010 Appointment: Belia Reid WPtel: [address] [place], [place] [phone] FOLLOW UP 08/10/2010 Patient Education: Patient Medication Summary Completed 08/10/2010 Visit Plan: Depomedrol/Kenalog given Pt sees ENT later this month Cont current meds Mammo scheduled 05/11/2010 Appointment: Belia Reid WPtel: [address] [place], [place] [phone] FOLLOW UP 05/11/2010 Patient Education: Patient Medication Summary Completed 05/11/2010 Appointment: Belia Reid WPtel: [address] [place], [place] [phone] UA 05/04/2010 Patient Education: Patient Medication Summary Completed 05/04/2010 Visit Plan: Pt sent to lab for UA 04/28/2010 Appointment: Belia Reid WPtel: [address] [place], [place] [phone] UA 04/28/2010 Patient Education: Patient Medication Summary Completed 04/28/2010 Visit Plan: Check CT angiogram of chest Restart Advair Use proair prn Cont current meds Fwup with Card as schedulec 04/06/2010 Appointment: Belia Reidtel: [address] [place] [address] Follow Up 04/06/2010 Patient Education: Patient Medication Summary Completed 04/06/2010 Visit Plan: Paperwork filled out for pow erchair Depomedrol/kenalog given Pt sees ENT in 2wks to assess nasal obstruction problems 02/09/2010 Appointment: Belia Reidtel: [address] [place] [address] ESTABLISHED PATIENT 02/09/2010 Patient Education: Patient Medication Summary Completed 02/09/2010 Visit Plan: Change Elavil to Trazadone 1 50mg q HS Diflucan and nystatin for tinea cruris 01/05/2010 Appointment: Belia Reidtel: [address] [place] [address] FOLLOW UP 01/05/2010 Patient Education: Patient Medication Summary Completed 01/05/2010 Appointment: Belia Reidtel: [address] [place] [address] FOLLOW UP 12/07/2009 Patient Education: Patient Medication Summary Completed 12/07/2009 Appointment: Belia Reidtel: [address] [place] [address] FOLLOW UP 11/22/2009 Visit Plan: Cont current meds and await MRI results from Dr. Meadows's office and his final recommendations Will need to follow-up at later date on deviated septum 11/08/2009 Appointment: Belia Reidtel: [address] [place] [address] FOLLOW UP 11/08/2009 Patient Education: Patient Medication Summary Completed 11/08/2009 Visit Plan: Cont PT/OT See Neurosurgery Cont Tortoise shell brace 10/24/2009 Appointment: Belia Reidl: [address] [place], [place] [phone] FOLLOW UP 10/24/2009 Patient Education: Patient Medication Summary Completed 10/24/2009 Appointment: Belia Reid WPtel: [address] [place], [place] [address] Hospital Follow Up 10/17/2009 Appointment: Belia Reid WPtel: [address] [place] [address] ACUTE ILLNESS 07/25/2009 Patient Education: Patient Medication Summary Completed 07/25/2009 Appointment: Belia Reid WPtel: [address] [place] [address] FOLLOW UP 05/26/2009 Patient Education: Patient Medication Summary Completed 05/26/2009 Referral: Chino Balderas WPtel: [address] [place] [address] Referral Initiated Referral: Merry Vael WPtel: [facility] [id number] [address] Vale will review referral and book appointment Completed Referral: Francisco Javier Yoder WPtel: [address] Patient needs EGD insurance will not inc rease a medication unless this procedure results show a need Completed Referral: Francisco Javier Yoder WPtel: [address] [id number] [place] Referral Historical Reference Referral: Francisco Javier Yoder WPtel: [address] [place] [address] [place] Referral Initiated Instructions Comment . Xrays [...] last date of carotid doppler from her quality assurance assessor and update if needed . Long discussion [...] from "generic Zyrtec they are getting from [facility]" and try Singulair for 2 weeks. . [...]
--- OUTSIDE RECORDS SUMMARY | 2019-08-27 07:52 | XMS REPORT | CCD ---
Author Author Diana Reid D.O. Organization [facility] Address [address] [place] [address] Phone Care Team Providers Care Brim Stitcher Name Role Phone [facility]ia [facility] D.O., PP Unavailable CCM Unavailable Summary Purpose Interface Exchange Insurance Providers Payer name Policy type / Coverage type Covered green party ID Effective Begin Date Effective End Date [employer] MEDICARE Medicare Part B [id number] 2019 Unknown Family History Family History data not found Social History Social History Element Codes Description Effective Dates Tobacco history SNOMED CT: 312277949 Nonsmoker 09/13/2010 Allergies, Adverse Reactions, Alerts Substance Reaction Codes Entered Date Inactivated Date Status Eggs reaction [id number] 09/15/2015 No Inactive Date Active _ Unknown [...] Start Date Stop Date Status Fill Instructions Ativan 0.5 mg tablet RxNorm: 580265 1 Tablet(s) Oral th ree times a day for anxiety/shortness of air/stridor 07/29/2019 08/27/2019 Active Singulair 10 mg tablet RxNorm: 562067 1 Tablet(s) Oral QPM 07/29/19 20 01/25/2020 Active diltiazem CD 240 mg capsule,extended release 24 hr RxNorm: 8 67020 1 Capsule(s) Oral QD 07/15/2019 01/10/2020 Active metoprolol tartrate 50 mg tablet RxNorm: 180628 1 Table t(s) Oral two times a day 07/06/2019 No Stop Date Active Novolin N NPH U-100 Insulin isophane 100 unit/mL subcu taneous susp RxNorm: 935778 25 Unit(s) Subcutaneous two times a day 07/06/2019 07/06/2019 I nactive Colestid 1 gram tablet RxNorm: 1112146 1 Tablet(s) Oral two times a day for diarrhea 07/06/2019 09/04/2019 Active pramipexole 1 mg tablet RxNorm: 274863 1 Tablet(s) Oral QPM FOR RESTLESS LEGS (REPLACES REQUIP) 06/25/2019 06/19/2020 Active hydroxyzine HCl 25 mg tablet RxNorm: 319803 1 Tablet(s) Oral QPM for itching/aniety 06/25/2019 09/23/2019 Active Ativan 0.5 mg tablet RxNorm: 413490 1 Tablet(s) Oral th ree times a day for anxiety/shortness of air/stridor 06/25/2019 07/25/2019 Inactive Levaquin 500 mg tablet RxNorm: 649801 1 Tablet(s) Oral QD 06/16/2019 06/23/2019 Inactive Flagyl 500 mg tablet RxNorm: 735122 1 Tablet(s) Oral three time s a day 06/16/2019 06/23/2019 Inactive Vancocin 125 mg capsule RxNorm: 680005 1 Capsule(s) Oral four t imes a day 06/08/2019 06/18/2019 Inactive omeprazole 40 mg capsule,delayed release RxNorm: 874013 1 Capsule(s) Oral two times a day 05/26/2019 11/21/2019 Active Flagyl 500 mg tablet RxNorm: 750535 1 Tablet(s) Oral three time s a day 05/26/2019 06/05/2019 Inactive diltiazem CD 240 mg capsule,extended release 24 hr RxNorm: 8 29882 1 Capsule(s) Oral QD 05/26/2019 07/14/2019 Inactive Cipro 250 mg tablet RxNorm: 202958 1 Tablet(s) Oral two times a day 05/26/2019 06/02/2019 Inactive hydroxyzine HCl 25 mg tablet RxNorm: 728913 1 Tablet(s) Oral QPM for itching/aniety 05/21/2019 06/24/2019 Inactive metoprolol tartrate 25 mg tablet RxNorm: 894547 1 Table t(s) Oral two times a day 05/21/2019 07/05/2019 Inactive hydroxyzine HCl 25 mg tablet RxNorm: 730383 1 Tablet(s) Oral QPM for itching/aniety 05/13/2019 05/20/2019 Inactive Singulair 10 mg tablet RxNorm: 897240 1 Tablet(s) Oral QPM 05/06/1905/12/2019 Inactive gabapentin 600 mg tablet RxNorm: 730588 1 Tablet(s) Oral QD 020 06/05/2019 Inactive Valium 5 mg tablet RxNorm: 385126 1 Tablet(s) Oral QPM for stri joao/muscle spasm 04/29/2019 06/24/2019 Inactive baclofen 10 mg tablet RxNorm: 720216 1 Tablet(s) Oral QPM for s pasm/neck pain 04/24/2019 05/23/2019 Inactive baclofen 10 mg tablet RxNorm: 908268 1 Tablet(s) Oral QPM for s pasm/neck pain 04/24/2019 04/23/2019 Inactive Novolin N NPH U-100 Insulin isophane 100 unit/mL subcu taneous susp RxNorm: 475835 23 Unit(s) Subcutaneous two times a day 04/20/2019 07/05/2019 I nactive cyclobenzaprine 5 mg tablet RxNorm: 496162 1 Tablet(s) Oral three times a day as needed 04/16/2019 04/23/2019 Inactive hydroxyzine HCl 25 mg tablet RxNorm: 077160 1 Tablet(s) Oral three times a day for itching/aniety 04/08/2019 05/12/2019 Inactive gabapentin 600 mg tablet RxNorm: 531935 1 Tablet(s) Oral two ti mes a day 04/08/2019 05/05/2019 Inactive gabapentin 600 mg tablet RxNorm: 878330 1 Tablet(s) Oral two ti mes a day 04/08/2019 04/07/2019 Inactive Novolin N NPH U-100 Insulin isophane 100 unit/mL subcu taneous susp RxNorm: 943391 10 Unit(s) Subcutaneous two times a day 03/03/2019 04/19/2019 I nactive gabapentin 300 mg capsule RxNorm: 511038 1 Capsule(s) O ral every night at bedtime for neuropathy 02/26/2019 04/07/2019 Inactive gabapentin 300 mg capsule RxNorm: 717300 1 Capsule(s) O ral every night at bedtime for neuropathy 02/20/2019 02/25/2019 Inactive buspirone 5 mg tablet RxNorm: 373033 TAKE 1 TABLET THREE TIMES MILDRED Y 02/12/2019 05/12/2019 Inactive pramipexole 1 mg tablet RxNorm: 923852 1 Tablet(s) Oral QPM FOR RESTLESS LEGS (REPLACES REQUIP) 02/12/2019 06/24/2019 Inactive Lexapro 10 mg tablet RxNorm: 694097 TAKE 1 TABLET EVERY DAY FOR MOO D 01/31/2019 No Stop Date Active Ativan 0.5 mg tablet RxNorm: 181024 TAKE 1 TABLET BY MO UT THREE TIMES DAILY NEEDED FOR ANXIETY 01/26/2019 04/28/2019 Inactive Ativan 0.5 mg tablet RxNorm: 616776 TAKE 1 TABLET BY MO UT THREE TIMES DAILY NEEDED FOR ANXIETY 01/05/2019 01/05/2019 Inactive Levaquin 500 mg tablet RxNorm: 909329 1 Tablet(s) Oral QD 12/25/2018 12/24/2018 Inactive Levaquin 500 mg tablet RxNorm: 202136 1 Tablet(s) Oral QD 12/25/2018 01/04/2019 Inactive baclofen 10 mg tablet RxNorm: 395502 1 Tablet(s) Oral three maico es a day 11/20/2018 01/19/2019 Inactive Ativan 0.5 mg tablet RxNorm: 470635 TAKE 1 TABLET BY MO UT THREE TIMES DAILY NEEDED FOR ANXIETY 11/20/2018 01/04/2019 Inactive gabapentin 300 mg capsule RxNorm: 634514 1 Capsule(s) O ral every night at bedtime for neuropathy 11/20/2018 12/20/2018 Inactive Lexapro 10 mg tablet RxNorm: 491567 1 Tablet(s) PO QD for mood 07/201801/30/2019 Inactive Zithromax Z-Lj 250 mg tablet RxNorm: 220465 Tablet(s) PO take as directed 11/04/2018 11/19/2018 Inactive Insulin Syringe 1 mL 29 gauge x 1/2" RxNorm: 2 s yringes daily with insulin Dx: E11.65 10/08/2018 No Stop Date Active gabapentin 300 mg capsule RxNorm: 561531 1 Capsule(s) PO QHS fo r neuropathy 09/18/2018 10/17/2018 Inactive cyclobenzaprine 5 mg tablet RxNorm: 637984 1 Tablet(s) PO TID a s needed 09/09/2018 09/08/2018 Inactive cyclobenzaprine 5 mg tablet RxNorm: 003801 1 Tablet(s) PO TID a s needed 09/09/2018 10/08/2018 Inactive prednisone 20 mg tablet RxNorm: 120595 1 Tablet(s) PO QD 09/08/2018 0 09/12/2018 Inactive Lantus Solostar U-100 Insulin 100 unit/mL (3 mL) subcu taneous pen RxNorm: 260517 55 Unit(s) SQ QAM 08/28/2018 11/03/2018 Inactive hydroxyzine HCl 25 mg tablet RxNorm: 297962 1 Tablet(s) PO QHS for itching 08/20/2018 05/12/2019 Inactive Lexapro 10 mg tablet RxNorm: 974224 1 Tablet(s) PO QD for mood 08/0210/18/2018 Inactive sumatriptan 100 mg tablet RxNorm: 802119 1 Tablet(s) PO at headache onset. May repeat 1 in two hours if headache remains. Max of 2 per 24 hours 04/02/2018 05/20/2018 Inactive Diflucan 150 mg tablet RxNorm: 131137 1 Tablet(s) PO QD 03/18/2018 Inactive Diflucan 150 mg tablet RxNorm: 203068 1 Tablet(s) PO QD 03/18/2018 Inactive Flagyl 500 mg tablet RxNorm: 011416 1 Tablet(s) PO TID 03/17/2018 Inactive Levaquin 500 mg tablet RxNorm: 530550 1 Tablet(s) PO QD 03/17/2018 Inactive Levaquin 500 mg tablet RxNorm: 447233 1 Tablet(s) PO QD 03/17/2018 Inactive Flagyl 500 mg tablet RxNorm: 083094 1 Tablet(s) PO TID 03/17/2018 Inactive ketoconazole 200 mg tablet RxNorm: 742954 1 Tablet(s) PO QD 019 03/19/2018 Inactive Celebrex 200 mg capsule RxNorm: 496522 1 Capsule(s) PO BID 02/06/2005/20/2018 Inactive tramadol 50 mg tablet RxNorm: 193459 1 Tablet(s) PO TID as needed 1 04/08/2017 05/20/2018 Inactive gabapentin 300 mg capsule RxNorm: 080105 1 Capsule(s) PO BID 201705/20/2018 Inactive Diflucan 150 mg tablet RxNorm: 125339 1 Tablet(s) PO QD 01/20/2018 Inactive pramipexole 1 mg tablet RxNorm: 574214 1 Tablet(s) PO Q PM FOR RESTLESS LEGS (REPLACES REQUIP) 01/08/2018 02/11/2019 Inactive cyclobenzaprine 10 mg tablet RxNorm: 949342 1 Tablet(s) PO TID as needed for muscle spasm 12/17/2017 05/20/2018 Inactive pramipexole 1 mg tablet RxNorm: 844201 TAKE 1 TABLET BY MOUTH ONCE DAILY IN THE EVENING FOR RESTLESS LEGS (REPLACES REQUIP) 12/04/2017 01/05/2018 Inac tive Amaryl 4 mg tablet RxNorm: 898995 1 Tablet(s) PO BID replaces 2mg 0 11/05/2017 12/16/2017 Inactive Singulair 10 mg tablet RxNorm: 474444 1 Tablet(s) PO QHS for al lergies/lungs 10/30/2017 12/16/2017 Inactive Diflucan 100 mg tablet RxNorm: 643001 1 Tablet(s) PO QD 10/23/2017 Inactive Ativan 0.5 mg tablet RxNorm: 965694 TAKE 1 TABLET BY MOUTH THRE E TIMES DAILY 08/30/2017 11/20/2018 Inactive buspirone 5 mg tablet RxNorm: 091956 1 Tablet(s) PO TID 07/11/2017 Inactive propranolol 60 mg tablet RxNorm: 292254 1 Tablet(s) PO BID repl aces 40mg dose 06/26/2017 12/16/2017 Inactive Amaryl 4 mg tablet RxNorm: 369754 1 Tablet(s) PO BID replaces 2mg 0 06/12/2017 11/05/2017 Inactive omeprazole 40 mg capsule,delayed release RxNorm: 657612 1 Capsule(s) PO BID TAKE ONE CAPSULE BY MOUTH TWICE DAILY 05/30/2017 11/25/2017 Inactive pramipexole 1 mg tablet RxNorm: 330338 1 Tablet(s) PO Q PM for restless legs--replaces requip 05/30/2017 11/25/2017 Inactive amitriptyline 50 mg tablet RxNorm: 312583 1 Tablet(s) PO QHS 201709/16/2017 Inactive Diflucan 100 mg tablet RxNorm: 277615 1 Tablet(s) PO BID 05/07/2017 0 05/20/2017 Inactive nystatin (bulk) 100 million unit powder RxNorm: Application TO P BID 05/07/2017 05/20/2018 Inactive cholestyramine (with sugar) 4 gram oral powder RxNorm: 689465 1 Unit Dose PO QD 05/07/2017 01/20/2018 Inactive Ativan 0.5 mg tablet RxNorm: 577573 TAKE ONE TABLET BY MOUTH TH REE TIMES DAILY 05/01/2017 09/02/2017 Inactive Trulicity 1.5 mg/0.5 mL subcutaneous pen injector RxNorm: 15 33134 1 Unit Dose SQ WEEKLY 02/22/2017 03/23/2017 Inactive doxycycline hyclate 100 mg capsule RxNorm: 5137720 1 Capsule(s) PO BID 01/23/2017 02/05/2017 Inactive Amaryl 4 mg tablet RxNorm: 669027 1 Tablet(s) PO BID replaces 2mg 1 03/25/2016 05/22/2017 Inactive magnesium oxide 400 mg capsule RxNorm: 441992 1 Capsule(s) PO QD 07/18/2017 Inactive Ativan 0.5 mg tablet RxNorm: 257332 TAKE ONE TABLET BY MOUTH TH REE TIMES DAILY 01/17/2017 05/01/2017 Inactive Amaryl 2 mg tablet RxNorm: 145385 1 Tablet(s) PO BID 12/27/201601/22 Inactive Amaryl 2 mg tablet RxNorm: 444632 1 Tablet(s) PO BID 12/26/201612/26 Inactive Ativan 0.5 mg tablet RxNorm: 475873 TAKE ONE TABLET BY MOUTH TH REE TIMES DAILY 12/05/2016 01/18/2017 Inactive pramipexole 1 mg tablet RxNorm: 630709 1 Tablet(s) PO Q PM for restless legs--replaces requip 11/26/2016 05/30/2017 Inactive Mobic 15 mg tablet RxNorm: 372768 1 Tablet(s) PO QD 10/08/20162016 Inactive cyclobenzaprine 5 mg tablet RxNorm: 166968 1/2- 1 Tablet(s) PO TID 10/08/2016 10/17/2016 Inactive Ativan 0.5 mg tablet RxNorm: 898167 1 Tablet(s) PO TID 09/20/201607/2016 Inactive amitriptyline 50 mg tablet RxNorm: 453331 1 Tablet(s) PO QHS 201605/30/2017 Inactive propranolol 60 mg tablet RxNorm: 026643 1 Tablet(s) PO BID repl aces 40mg dose 09/19/2016 06/26/2017 Inactive Ativan 0.5 mg tablet RxNorm: 810910 1 Tablet(s) PO TID 08/20/2016 Inactive omeprazole 40 mg capsule,delayed release RxNorm: 833966 1 Capsule(s) PO BID TAKE ONE CAPSULE BY MOUTH TWICE DAILY 08/20/2016 05/30/2017 Inactive amitriptyline 50 mg tablet RxNorm: 035906 1 Tablet(s) PO QHS 201609/18/2016 Inactive pramipexole 1 mg tablet RxNorm: 696515 1 Tablet(s) PO Q PM for restless legs--replaces requip 07/23/2016 11/25/2016 Inactive Amaryl 2 mg tablet RxNorm: 760085 1 Tablet(s) PO BID 07/23/201612/27 Inactive propranolol 40 mg tablet RxNorm: 322532 1 Tablet(s) PO BID 07/13/19 17 09/18/2016 Inactive Ativan 0.5 mg tablet RxNorm: 956794 1 Tablet(s) PO QID 06/19/2016 Inactive Amaryl 2 mg tablet RxNorm: 378676 1 Tablet(s) PO BID 06/19/201607/22 Inactive Ativan 0.5 mg tablet RxNorm: 009348 1 Tablet(s) PO QID 06/19/2016 Inactive buspirone 5 mg tablet RxNorm: 265453 1 Tablet(s) PO TID 06/19/2016 Inactive Ativan 0.5 mg tablet RxNorm: 297053 1 Tablet(s) PO BID 05/24/2016 Inactive buspirone 5 mg tablet RxNorm: 455424 1 Tablet(s) PO TID 05/23/2016 Inactive Macrobid 100 mg capsule RxNorm: 264067 1 Capsule(s) PO QOD 05/03/19 17 10/07/2016 Inactive pramipexole 1 mg tablet RxNorm: 234155 Tablet(s) 1 Tabl et(s) PO QPM for restless legs--replaces requip 04/26/2016 06/24/2016 Inactive propranolol 40 mg tablet RxNorm: 827021 TAKE ONE TABLET BY MOUT H TWICE DAILY 04/26/2016 06/24/2016 Inactive Detrol LA 4 mg capsule,extended release RxNorm: 367411 1 Capsul e(s) PO QHS 04/03/2016 05/02/2016 Inactive prednisone 20 mg tablet RxNorm: 354668 1 Tablet(s) PO QD 02/29/2016 0 03/04/2016 Inactive Actos 30 mg tablet RxNorm: 333755 TAKE ONE TABLET BY MOUTH ONCE DAILY 02/27/2016 12/19/2016 Inactive clindamycin 300 mg capsule RxNorm: 744482 1 Capsule(s) PO TID 02/0102/08/2016 Inactive Flagyl 500 mg tablet RxNorm: 423079 1 Tablet(s) PO BID 02/02/201609/2015 Inactive omeprazole 40 mg capsule,delayed release RxNorm: 475142 TAKE ONE CAPSULE BY MOUTH TWICE DAILY 01/15/2016 07/12/2016 Inactive gabapentin 300 mg capsule RxNorm: 833658 1 Capsule(s) PO QAM an d 2 po q HS 01/05/2016 06/18/2016 Inactive gabapentin 300 mg capsule RxNorm: 562003 1 Capsule(s) P O BID 1 Capsule(s) PO QHS 12/05/2015 01/04/2016 Inactive cyclobenzaprine 10 mg tablet RxNorm: 483274 1 Tablet(s) PO TID for spasm as needed for muscle spasm 12/05/2015 06/18/2016 Inactive ciprofloxacin 250 mg tablet RxNorm: 808436 1 Tablet(s) PO BID 12/0412/14/2015 Inactive pramipexole 1 mg tablet RxNorm: 699458 Tablet(s) 1 Tabl et(s) PO QPM for restless legs--replaces requip 11/07/2015 11/26/2016 Inactive Januvia 100 mg tablet RxNorm: 986178 1 Tablet(s) PO QD 10/26/201504/2015 Inactive propranolol 40 mg tablet RxNorm: 392257 TAKE ONE TABLET BY MOUT H TWICE DAILY 10/25/2015 04/21/2016 Inactive gabapentin 300 mg capsule RxNorm: 684164 1 Capsule(s) PO QHS 201512/04/2015 Inactive Cipro 500 mg tablet RxNorm: 495744 1 Tablet(s) PO BID 10/05/2015 0811/2015 Inactive pramipexole 1 mg tablet RxNorm: 133212 Tablet(s) 1 Tabl et(s) PO QPM for restless legs--replaces requip 10/04/2015 11/02/2015 Inactive propranolol 40 mg tablet RxNorm: 737838 TAKE ONE TABLET BY MOUT H TWICE DAILY 09/26/2015 10/24/2015 Inactive Amaryl 2 mg tablet RxNorm: 199135 1 Tablet(s) PO QD 09/15/20152016 Inactive gabapentin 300 mg capsule RxNorm: 855992 1 Capsule(s) PO QHS 201510/14/2015 Inactive buspirone 5 mg tablet RxNorm: 456679 1 Tablet(s) PO TID 09/15/2015 Inactive pramipexole 1 mg tablet RxNorm: 534964 Tablet(s) 1 Tabl et(s) PO QPM for restless legs--replaces requip 09/08/2015 10/03/2015 Inactive pramipexole 1 mg tablet RxNorm: 255316 1 Tablet(s) PO Q PM for restless legs--replaces requip 08/08/2015 09/08/2015 Inactive Amaryl 2 mg tablet RxNorm: 288840 1 Tablet(s) PO QD 07/07/20152015 Inactive pramipexole 1 mg tablet RxNorm: 009108 1 Tablet(s) PO Q PM for restless legs--replaces requip 07/05/2015 08/03/2015 Inactive ropinirole 2 mg tablet RxNorm: 735119 TAKE ONE TABLET BY MOUTH TWICE DAILY 05/09/2015 09/14/2015 Inactive Diflucan 100 mg tablet RxNorm: 529808 1 Tablet(s) PO QD 03/30/2015 Inactive propranolol 40 mg tablet RxNorm: 744085 1 Tablet(s) PO BID 02/24/20 15 08/21/2015 Inactive [SAVINGS FOR UNINSURED PATIE NTS -- BIN:170406, PCN: ASPROD1, Group: AME08, ID# [id number], Process claim through [employer], for questions: . THIS IS NOT INSURANCE.] Flagyl 500 mg tablet RxNorm: 132264 1 Tablet(s) PO BID 02/03/201502/2015 Inactive Cipro 500 mg tablet RxNorm: 266697 1 Tablet(s) PO BID 02/03/201502/01 Inactive Carafate 1 gram tablet RxNorm: 015948 1 Tablet(s) PO QID make i nto slurry 02/03/2015 09/14/2015 Inactive ondansetron HCl 4 mg tablet RxNorm: 604364 1 Tablet(s) PO Q4H as needed for nausea 12/29/2014 01/04/2016 Inactive Diflucan 100 mg tablet RxNorm: 825861 1 Tablet(s) PO QD 12/29/2014 Inactive Keflex 500 mg capsule RxNorm: 848679 1 Capsule(s) PO TID 12/29/2014 1 03/09/2014 Inactive omeprazole 40 mg capsule,delayed release RxNorm: 149728 1 Capsu le(s) PO BID 12/27/2014 12/21/2015 Inactive [SAVINGS FOR UNINSUR ED PATIENTS -- BIN:636361, PCN: ASPROD1, Group: AME08, ID# [id number], Process claim through [employer], for questions: . THIS IS NOT INSURANCE.] ropinirole 2 mg tablet RxNorm: 440672 1 Tablet(s) PO BID 09/29/2014 0 03/27/2015 Inactive [SAVINGS FOR UNINSURED PATIENTS -- BIN:0 87025, PCN: ASPROD1, Group: AME08, ID# [id number], Process claim through [employer], for questions: . THIS IS NOT INSURANCE.] buspirone 5 mg tablet RxNorm: 897328 1 Tablet(s) PO TID 09/17/2014 Inactive ropinirole 2 mg tablet RxNorm: 894980 1 Tablet(s) PO BID 09/02/2014 0 09/28/2014 Inactive [SAVINGS FOR UNINSURED PATIENTS -- BIN:0 57165, PCN: ASPROD1, Group: AME08, ID# [id number], Process claim through [employer], for questions: . THIS IS NOT INSURANCE.] Zyrtec 10 mg tablet RxNorm: 7636380 1 Tablet(s) PO QD 09/02/201412/02 Inactive propranolol 40 mg tablet RxNorm: 388126 1 Tablet(s) PO BID 07/21/19 15 02/23/2015 Inactive [SAVINGS FOR UNINSURED PATIE NTS -- BIN:681639, PCN: ASPROD1, Group: AME08, ID# [id number], Process claim through [employer], for questions: . THIS IS NOT INSURANCE.] ropinirole 2 mg tablet RxNorm: 135487 1 Tablet(s) PO QHS 05/14/2014 0 09/01/2014 Inactive [SAVINGS FOR UNINSURED PATIENTS -- BIN:0 34856, PCN: ASPROD1, Group: AME08, ID# [id number], Process claim through [employer], for questions: . THIS IS NOT INSURANCE.] cyclobenzaprine 10 mg tablet RxNorm: 375371 1 Tablet(s) PO QHS for spasm 04/06/2014 09/01/2014 Inactive ipratropium-albuterol 0.5 mg-3 mg(2.5 mg base)/3 mL ne bulization soln RxNorm: 0499574 1 Unit Dose INH Q4H 03/16/2014 No Stop Date Active [SAVINGS FOR UNINSURED PATIENTS -- BIN:428038, PCN: ASPROD1, Group: AME08, ID# [id number], Process claim through [employer], for questions: . THIS IS NOT INSURANCE.] prednisone 20 mg tablet RxNorm: 503740 1 Tablet(s) PO BID 03/09/2014 03/15/2014 Inactive [SAVINGS FOR UNINSURED PATIENTS -- BIN:0 97525, PCN: ASPROD1, Group: AME08, ID# [id number], Process claim through [employer], for questions: . THIS IS NOT INSURANCE.] ipratropium-albuterol 0.5 mg-3 mg(2.5 mg base)/3 mL ne bulization soln RxNorm: 0200697 1 Unit Dose INH Q4H 03/09/2014 03/15/2014 Inactive [SAVINGS FOR UNINSURED PATIENTS -- BIN:723017, PCN: ASPROD1, Group: AME08, ID# [id number], Process claim through [employer], for questions: . THIS IS NOT INSURANCE.] Levaquin 500 mg tablet RxNorm: 049484 1 Tablet(s) PO QD 03/09/2014 Inactive [SAVINGS FOR UNINSURED PATIENTS -- BIN:0 73177, PCN: ASPROD1, Group: AME08, ID# [id number], Process claim through [employer], for questions: . THIS IS NOT INSURANCE.] Carafate 1 gram tablet RxNorm: 274443 1 Tablet(s) PO AC & HS ma ke into slurry 02/09/2014 09/01/2014 Inactive [SAVINGS FOR UNINSUR ED PATIENTS -- BIN:166314, PCN: ASPROD1, Group: AME08, ID# [id number], Process claim through [employer], for questions: . THIS IS NOT INSURANCE.] Fioricet 50 mg-300 mg-40 mg capsule RxNorm: 5675070 1-2 Capsule(s) PO Q4H as needed for headache --max of 6 a day 02/09/2014 09/01/2014 Inactive [SAVINGS FOR UNINSURED PATIENTS -- BIN:703741, PCN: ASPROD1, Group: AME08, ID# [id number], Process claim through [employer], for questions: . THIS IS NOT INSURANCE.] propranolol 40 mg tablet RxNorm: 345934 1 Tablet(s) PO BID 12/08/19 14 06/04/2014 Inactive [SAVINGS FOR UNINSURED PATIE NTS -- BIN:636692, PCN: ASPROD1, Group: AME08, ID# [id number], Process claim through [employer], for questions: . THIS IS NOT INSURANCE.] buspirone 5 mg tablet RxNorm: 101388 1 Tablet(s) PO TID 12/02/2013 Inactive omeprazole 40 mg capsule,delayed release RxNorm: 471154 1 Capsu le(s) PO BID 11/25/2013 11/19/2014 Inactive [SAVINGS FOR UNINSUR ED PATIENTS -- BIN:763073, PCN: ASPROD1, Group: AME08, ID# [id number], Process claim through [employer], for questions: . THIS IS NOT INSURANCE.] ropinirole 2 mg tablet RxNorm: 782735 1 Tablet(s) PO QHS 11/10/2013 0 05/08/2014 Inactive [SAVINGS FOR UNINSURED PATIENTS -- BIN:0 89568, PCN: ASPROD1, Group: AME08, ID# [id number], Process claim through [employer], for questions: . THIS IS NOT INSURANCE.] Cipro 500 mg tablet RxNorm: 483557 1 Tablet(s) PO BID 10/21/201312/03 Inactive [SAVINGS FOR UNINSURED PATIENTS -- BIN:0 91427, PCN: ASPROD1, Group: AME08, ID# [id number], Process claim through [employer], for questions: . THIS IS NOT INSURANCE.] hydroxyzine HCl 25 mg tablet RxNorm: 720969 1 Tablet(s) PO Q4-6 H as needed 10/05/2013 01/04/2016 Inactive [SAVINGS FOR UNINSUR ED PATIENTS -- BIN:517051, PCN: ASPROD1, Group: AME08, ID# [id number], Process claim through [employer], for questions: . THIS IS NOT INSURANCE.] triamcinolone acetonide 0.1 % topical cream RxNorm: 5276875 Appl ication TOP BID 10/05/2013 09/01/2014 Inactive [SAVINGS FOR UNINSUR ED PATIENTS -- BIN:917509, PCN: ASPROD1, Group: AME08, ID# [id number], Process claim through [employer], for questions: . THIS IS NOT INSURANCE.] albuterol sulfate HFA 90 mcg/actuation aerosol inhaler RxNor m: 1661762 2 Puff(s) INH Q4H as needed for cough 10/01/2013 12/22/2013 Inactive [MAKSIM INGS FOR UNINSURED PATIENTS -- BIN:677185, PCN: ASPROD1, Group: AME08, ID# [id number], Process claim through [employer], for questions: . THIS IS NOT INSURANCE.] propranolol 40 mg tablet RxNorm: 890425 1 Tablet(s) PO BID 09/02/19 14 11/29/2013 Inactive [SAVINGS FOR UNINSURED PATIE NTS -- BIN:664996, PCN: ASPROD1, Group: AME08, ID# [id number], Process claim through [employer], for questions: . THIS IS NOT INSURANCE.] propranolol 40 mg tablet RxNorm: 176703 1 Tablet(s) PO BID 08/05/19 14 08/31/2013 Inactive [SAVINGS FOR UNINSURED PATIE NTS -- BIN:777525, PCN: ASPROD1, Group: AME08, ID# [id number], Process claim through [employer], for questions: . THIS IS NOT INSURANCE.] Toprol XL 50 mg tablet,extended release RxNorm: 688633 1 Tablet (s) PO QHS 07/23/2013 08/03/2013 Inactive Macrobid 100 mg capsule RxNorm: 444989 1 Capsule(s) PO BID 07/04/19 14 07/09/2013 Inactive Toprol XL 50 mg tablet,extended release RxNorm: 681886 1 Tablet (s) PO QHS 05/28/2013 06/26/2013 Inactive ciprofloxacin 500 mg tablet RxNorm: 738396 1 Tablet(s) PO BID 05/2706/02/2013 Inactive Bystolic 5 mg tablet RxNorm: 438589 1 Tablet(s) PO QD 05/27/201305/03 Inactive ropinirole 2 mg tablet RxNorm: 931558 1 Tablet(s) PO QHS 04/22/2013 0 11/09/2013 Inactive Cipro 250 mg tablet RxNorm: 000510 1 Tablet(s) PO BID 04/06/201311/2013 Inactive ropinirole 2 mg tablet RxNorm: 297372 1 Tablet(s) PO QHS 02/17/2013 0 04/21/2013 Inactive Amaryl 2 mg tablet RxNorm: 471502 1 Tablet(s) PO QAM 11/11/201211/10 Inactive Amaryl 2 mg tablet RxNorm: 463964 1 Tablet(s) PO QAM 11/11/201204/05 Inactive omeprazole 40 mg capsule,delayed release RxNorm: 166044 1 Capsu le(s) PO BID 08/14/2012 08/08/2013 Inactive Bystolic 5 mg tablet RxNorm: 285017 1 Tablet(s) PO QD 08/14/201205/03 Inactive propranolol 60 mg tablet RxNorm: 430164 Tablet(s) PO TAKE 1 TAB LET TWICE DAILY 08/01/2012 09/01/2012 Inactive Bystolic 5 mg tablet RxNorm: 735048 1 Tablet(s) PO QD 07/21/201207/02 Inactive Bystolic 5 mg tablet RxNorm: 626742 1 Tablet(s) PO QD 07/21/201207/03 Inactive Prilosec 40 mg capsule,delayed release RxNorm: 799065 1 Capsule (s) PO BID 06/24/2012 07/21/2012 Inactive buspirone 10 mg tablet RxNorm: 751616 1 Tablet(s) PO TID 05/08/2012 0 05/23/2016 Inactive Valium 10 mg tablet RxNorm: 871345 1 Tablet(s) PO BID 04/02/201207/03 Inactive Endocet 10 mg-325 mg tablet RxNorm: 6736833 1 Tablet(s) PO QID 03/0607/21/2012 Inactive as needed for severe pain Valium 10 mg tablet RxNorm: 960052 1 Tablet(s) PO BID 02/27/2012 No S top Date Active Endocet 10 mg-325 mg tablet RxNorm: 5959828 1 Tablet(s) PO QID 02/0203/27/2012 Inactive as needed for severe pain Endocet 10 mg-325 mg tablet RxNorm: 4353089 1 Tablet(s) PO QID 01/0302/26/2012 Inactive as needed for severe pain Valium 10 mg tablet RxNorm: 967431 1 Tablet(s) PO BID 01/29/2012 No S top Date Active Protonix 40 mg tablet,delayed release RxNorm: 491894 1 Tablet(s ) PO QD 01/28/2012 07/21/2012 Inactive metformin ER 500 mg tablet,extended release 24 hr RxNorm: 86 0977 1 Tablet(s) PO QD 12/26/2011 07/20/2012 Inactive Trazadone 150 mg Tablet RxNorm: 1 Tablet(s) PO QHS prn sleep 1 04/23/2012 Inactive Endocet 10 mg-325 mg tablet RxNorm: 6635761 1 Tablet(s) PO QID 12/0301/24/2012 Inactive as needed for severe pain Nexium 40 mg capsule,delayed release RxNorm: 990294 1 Capsule(s ) PO QD 12/26/2011 01/27/2012 Inactive Symbicort 160 mcg-4.5 mcg/actuation HFA Aerosol Inhaler RxNo rm: 9811309 2 Puff(s) INH BID 12/04/2011 07/21/2012 Inactive Endocet 10 mg-325 mg tablet RxNorm: 5386296 1 Tablet(s) PO QID 11/0312/25/2011 Inactive as needed for severe pain metformin ER 500 mg tablet,extended release 24 hr RxNorm: 86 0977 1 Tablet(s) PO QD 11/20/2011 12/19/2011 Inactive metformin ER 500 mg tablet,extended release 24 hr RxNorm: 86 0977 1 Tablet(s) PO QD 11/20/2011 11/19/2011 Inactive amitriptyline 100 mg tablet RxNorm: 878053 Tablet(s) PO QHS 1 a nd 1/2 tabs QHS 11/12/2011 11/13/2011 Inactive Valium 10 mg tablet RxNorm: 042350 1 Tablet(s) PO BID 11/09/2011 No S top Date Active Endocet 10 mg-325 mg tablet RxNorm: 8625206 1 Tablet(s) PO QID 10/0211/14/2011 Inactive as needed for severe pain Aricept 10 mg Tab RxNorm: 874887 1 Tablet(s) PO QD 10/05/2011 013 Inactive Valium 10 mg tablet RxNorm: 230465 1 Tablet(s) PO BID 10/05/2011 No S top Date Active Endocet 10 mg-325 mg Tab RxNorm: 0748173 1 Tablet(s) PO QID 012 10/09/2011 Inactive as needed for severe pain Aricept 10 mg Tab RxNorm: 233909 1 Tablet(s) PO QD 08/14/2011 012 Inactive Endocet 10 mg-325 mg Tab RxNorm: 2184535 1 Tablet(s) PO QID 012 08/31/2011 Inactive as needed for severe pain Valium 10 mg Tab RxNorm: 697678 1 Tablet(s) PO BID 08/02/2011 No Stop Date Active propranolol 60 mg tablet RxNorm: 132398 1 Tablet(s) PO BID 07/26/19 12 09/11/2011 Inactive amitriptyline 100 mg tablet RxNorm: 416461 Tablet(s) PO QHS 1 a nd / tabs QHS 06/20/2011 09/11/2011 Inactive buspirone 10 mg tablet RxNorm: 357567 1 Tablet(s) PO BID 06/18/2011 0 09/15/2011 Inactive propranolol 60 mg Tab RxNorm: 152714 1 Tablet(s) PO BID 06/18/2011 Inactive gabapentin 800 mg Tab RxNorm: 251748 1 Tablet(s) PO BID 06/18/2011 Inactive ropinirole 2 mg tablet RxNorm: 014999 1 Tablet(s) PO QHS 05/29/2011 0 08/26/2011 Inactive trimethoprim 100 mg Tab RxNorm: 453476 1 Tablet(s) PO QHS 05/29/2011 07/21/2012 Inactive Endocet 10 mg-325 mg Tab RxNorm: 7296869 1 Tablet(s) PO QID 012 2011 Inactive as needed for severe pain Valium 10 mg Tab RxNorm: 339280 1 Tablet(s) PO QHS N eed to take med as prescribed. this is a 40 day RX. No early fills. 05/17/2011 05/20/2018 Inactive propranolol 60 mg Tab RxNorm: 884973 1 Tablet(s) PO BID 04/16/2011 Inactive Neurontin 800 mg Tab RxNorm: 373202 1 Tablet(s) PO QHS 04/05/201103/2011 Inactive Endocet 10 mg-325 mg Tab RxNorm: 6912722 1 Tablet(s) PO QID 012 05/02/2011 Inactive as needed for severe pain oxycodone-acetaminophen 10 mg-325 mg tablet RxNorm: 3479039 1 Ta blet(s) PO Q4H 03/28/2011 05/19/2012 Inactive Valium 10 mg Tab RxNorm: 900709 1 Tablet(s) PO QHS 03/28/2011 012 Inactive buspirone 10 mg Tab RxNorm: 835934 1 Tablet(s) PO BID 03/27/201106/02 Inactive propranolol 60 mg Tab RxNorm: 189004 1 Tablet(s) PO BID 03/19/2011 Inactive Klor-Con M20 20 mEq Tab RxNorm: 4750814 1 Tablet(s) PO QD 03/19/2011 07/21/2012 Inactive Aricept 10 mg Tab RxNorm: 870684 1 Tablet(s) PO QD 02/27/2011 012 Inactive propranolol 60 mg Tab RxNorm: 049955 1 Tablet(s) PO BID 02/19/2011 Inactive omeprazole 40 mg capsule,delayed release RxNorm: 049466 1 Capsu le(s) PO BID 01/24/2011 05/23/2011 Inactive clindamycin 300 mg capsule RxNorm: 231706 1 Capsule(s) PO TID 01/2402/02/2011 Inactive propranolol 60 mg Tab RxNorm: 617291 1 Tablet(s) PO BID 01/22/2011 No Stop Date Active nystatin 100,000 unit/g Topical Cream RxNorm: 436516 Applicatio n TOP BID 01/15/2011 01/14/2011 Inactive to rash for 2-4 week s Diflucan 200 mg Tab RxNorm: 257326 1 Tablet(s) PO QD 01/15/201101/28 Inactive buspirone 10 mg Tab RxNorm: 475720 1 Tablet(s) PO BID 01/08/201103/05 Inactive Valium 10 mg Tab RxNorm: 765258 1 Tablet(s) PO QHS 01/05/2011 012 Inactive Diflucan 200 mg Tab RxNorm: 146322 1 Tablet(s) PO QD 01/01/201101/14 Inactive Diflucan 200 mg Tab RxNorm: 900321 1 Tablet(s) PO QD 12/18/201012/31 Inactive Valium 10 mg Tab RxNorm: 799915 1 Tablet(s) PO QHS 12/12/2010 011 Inactive Diflucan 200 mg Tab RxNorm: 609141 1 Tablet(s) PO QD 12/07/201012/18 Inactive Aricept 10 mg Tab RxNorm: 058940 1 Tablet(s) PO QD 11/20/2010 011 Inactive ropinirole 1 mg Tab RxNorm: 567407 1 Tablet(s) PO QHS 11/16/201005/03 Inactive enalapril maleate 5 mg Tab RxNorm: 489907 1 Tablet(s) PO QD 011 05/20/2018 Inactive buspirone 10 mg Tab RxNorm: 434071 1 Tablet(s) PO BID 11/16/201012/02 Inactive Valium 10 mg Tab RxNorm: 151857 1 Tablet(s) PO QHS 11/07/2010 011 Inactive Pyridium 100 mg Tab RxNorm: 5483108 1 Tablet(s) PO TID 11/02/201004/2010 Inactive Macrobid 100 mg Cap RxNorm: 9781878 1 Capsule(s) PO BID 11/02/2010 Inactive buspirone 10 mg Tab RxNorm: 888526 1 Tablet(s) PO QHS 10/18/201005/02 Inactive propranolol 60 mg Tab RxNorm: 974651 1 Tablet(s) PO BID 09/18/2010 Inactive Valium 10 mg Tab RxNorm: 976355 1 Tablet(s) PO QHS 09/05/2010 011 Inactive Aricept 10 mg Tab RxNorm: 143425 1 Tablet(s) PO QD 08/14/2010 011 Inactive Valium 10 mg Tab RxNorm: 303425 1 Tablet(s) PO QHS 06/26/2010 011 Inactive ropinirole 1 mg Tab RxNorm: 949651 1 Tablet(s) PO QHS 06/19/201010/02 Inactive omeprazole 40 mg Cap, delayed release RxNorm: 218823 1 Capsule( s) PO QD 06/07/2010 10/04/2010 Inactive Endocet 10 mg-325 mg Tab RxNorm: 5113534 1 Tablet(s) PO QID as needed for severe pain 06/07/2010 03/07/2011 Inactive Endocet 10 mg-325 mg Tab RxNorm: 7542813 1 Tablet(s) PO QID as needed for severe pain 05/04/2010 06/02/2010 Inactive Valium 10 mg Tab RxNorm: 024456 1 Tablet(s) PO QHS 05/01/2010 011 Inactive propranolol 60 mg Tab RxNorm: 039894 1 Tablet(s) PO BID 04/03/2010 Inactive Valium 10 mg Tab RxNorm: 030680 1 Tablet(s) PO QHS 03/28/2010 011 Inactive omeprazole 40 mg Cap, Delayed Release RxNorm: 134789 1 Capsule( s) PO QD 03/28/2010 06/06/2010 Inactive Endocet 10 mg-325 mg Tab RxNorm: 9575788 1 Tablet(s) PO QID prn ari n 03/27/2010 05/20/2018 Inactive Valium 10 mg Tab RxNorm: 989113 1 Tablet(s) PO QHS 02/20/2010 011 Inactive Diflucan 100 mg Tab RxNorm: 786983 1 Tablet(s) PO BID 01/23/201003/2009 Inactive Diflucan 100 mg Tab RxNorm: 947898 1 Tablet(s) PO BID 01/05/201001/02 Inactive Aricept 10 mg Tab RxNorm: 505575 1 Tablet(s) PO QD 12/01/2009 011 Inactive OxyContin 20 mg 12 hr Tab RxNorm: 2752883 1 Tablet(s) PO BID 200904/05/2010 Inactive oxycodone-acetaminophen 10 mg-325 mg Tab RxNorm: 7765208 1 Table t(s) PO Q4H 11/22/2009 11/26/2009 Inactive Phenergan 25 mg Tab RxNorm: 769967 1 Tablet(s) PO PRN MIGRAINE 11/0303/07/2011 Inactive Demerol 100 mg Tab RxNorm: 846838 1 Tablet(s) PO PRN MIGRAINE 11/2203/07/2011 Inactive Oxycodone-Acetaminophen 10 mg-325 mg Tab RxNorm: 2255847 1 Table t(s) PO Q4H 10/11/2009 10/15/2009 Inactive Percocet 10 mg-325 mg Tab RxNorm: 3395104 1 Tablet(s) PO Q4H 200910/24/2009 Inactive propranolol 60 mg Tab RxNorm: 310665 1 Tablet(s) PO BID 08/29/2009 Inactive Valium 10 mg Tab RxNorm: 677438 1 Tablet(s) PO QHS 08/16/2009 010 Inactive Keflex 500 mg Cap RxNorm: 147014 1 Capsule(s) PO BID 07/25/200907/31 Inactive Hydroxyzine 25 mg Tab RxNorm: 749390 1 Tablet(s) PO TID 07/25/2009 Inactive Prednisone 20 mg Tab RxNorm: 693591 1 Tablet(s) PO BID 07/25/2009 Inactive Demerol 100 mg Tab RxNorm: 864718 1 Tablet(s) PO PRN MIGRAINE 07/25 No Stop Date Active Ropinirole 1 mg Tab RxNorm: 040891 1 Tablet(s) PO HS 07/20/200902/14 Inactive Valium 10 mg Tab RxNorm: 258703 1 Tablet(s) PO QHS 07/18/2009 010 Inactive Endocet 10 mg-325 mg Tab RxNorm: 3418872 1 Tablet(s) PO TID 010 07/07/2009 Inactive Demerol 100 mg Tab RxNorm: 470334 1 Tablet(s) PO PRN MIGRAINE 06/08 No Stop Date Active Ropinirole 1 mg Tab RxNorm: 539625 1 Tablet(s) PO HS 05/16/200907/14 Inactive ipratropium-albuterol 0.5 mg-3 mg(2.5 mg base)/3 mL ne bulization soln RxNorm: 7469086 1 Unit Dose INH Q4H as needed No Start Date Active MagOx 400 mg (241.3 mg magnesium) tablet RxNorm: 546231 1 Table t(s) PO BID No Start Date Active Vitamin B12 1000mcg Tablet RxNorm: 1 Tablet(s) PO QD No Start Date Active Vitamin D3 5,000 unit tablet RxNorm: 906530 1 Tablet(s) PO QD No Star t Date Active Tylenol Arthritis Pain 650 mg tablet,extended release RxNorm : 2464936 1 Tablet(s) PO Q4H No Start Date Active Lotrimin AF 2 % topical powder RxNorm: 849757 1 Application TOP BID No Start Date Active enalapril maleate 5 mg Tab RxNorm: 762235 1 Tablet(s) PO QD No Star t Date 07/20/2012 Inactive Demerol 100 mg Tab RxNorm: 082752 Tablet(s) PO PRN MIGRAINE No Star t Date 06/02/2009 Inactive metformin 500 mg tablet RxNorm: 439226 1 Tablet(s) PO QD No Start D ate 04/05/2013 Inactive Breo Ellipta 100 mcg-25 mcg/dose powder for inhalation RxNor m: 3863150 1 Puff(s) INH BID No Start Date 01/04/2016 Inactive Mag-Oxide 400 mg Tab RxNorm: 430850 1 Tablet(s) PO QD No Start Date 0 07/21/2012 Inactive Cipro 500 mg Tab RxNorm: 842237 1 Tablet(s) PO QD No Start Date 04/05 Inactive Ativan 0.5 mg tablet RxNorm: 276024 1 Tablet(s) PO TID as needed No Start Date 05/06/2019 Inactive melatonin 3 mg tablet RxNorm: 691905 2 Tablet(s) PO QHS No Start Da te 08/19/2018 Inactive buspirone 10 mg Tab RxNorm: 623259 1 Tablet(s) PO QD No Start Date Inactive sucralfate 100 mg/mL Oral Susp RxNorm: 210836 2 Teaspoon(s) PO QID No Start Date 07/21/2012 Inactive hydrocodone 5 mg-acetaminophen 325 mg tablet RxNorm: 022841 1 Tablet(s) PO Q4H as needed No Start Date 08/19/2018 Inactive Amaryl 2 mg tablet RxNorm: 566629 1 Tablet(s) PO BID No Start Date Inactive OxyContin 20 mg 12 hr Tab RxNorm: 0242152 1 Tablet(s) PO BID No Sta rt Date 11/27/2009 Inactive propranolol 40 mg tablet RxNorm: 073945 1 Tablet(s) PO QID No Start Date 01/19/2018 Inactive Trazadone 150 mg Tablet RxNorm: 1-2 Tablet(s) PO QHS prn sleep No Start Date 08/09/2010 Inactive propranolol 60 mg Tab RxNorm: 205268 1/2 Tablet(s) PO BID No Start Date 01/21/2011 Inactive insulin NPH and regular human subcutaneous RxNorm: 6312539 subcu taneous No Start Date 11/20/2018 Inactive Ativan 0.5 mg tablet RxNorm: 343381 1 Tablet(s) PO QID No Start Date 06/18/2016 Inactive Vasotec 5 mg Tab RxNorm: 505135 1 Tablet(s) PO BID No Start Date 06/2011 Inactive Toprol XL 50 mg tablet,extended release RxNorm: 425726 1 Tablet (s) PO BID No Start Date 04/05/2013 Inactive Ativan 0.5 mg tablet RxNorm: 553512 1 Tablet(s) PO TID No Start Date 05/25/2016 Inactive Klor-Con M20 20 mEq Tab RxNorm: 7286203 1 Tablet(s) PO QD No Start Date 03/19/2011 Inactive sumatriptan 100 mg tablet RxNorm: 550165 1 Tablet(s) PO at headache onset--repeat in 2hrs if remains No Start Date 07/21/2012 Inactive propranolol 60 mg Tab RxNorm: 567761 1 Tablet(s) PO BID No Start Da te 08/28/2009 Inactive Cholestyramine Light 4 gram Oral Powder RxNorm: 7289088 1 Unit Dose PO QD in water No Start Date 07/21/2012 Inactive nystatin 100,000 unit/g Topical Powder RxNorm: 802076 Applicati on TOP BID No Start Date 07/21/2012 Inactive vitamin S75-ukffe acid sublingual RxNorm: sublingual No Start Date 07/05/2013 Inactive cyclobenzaprine 5 mg tablet RxNorm: 653188 1/2-1 Tablet (s) PO TID as needed for muscle spasm No Start Date 07/18/2017 Inactive tramadol 50 mg tablet RxNorm: 816213 2 Tablet(s) PO TID as need ed for pain No Start Date 09/01/2014 Inactive aspirin 81 mg Tab RxNorm: 889445 1 Tablet(s) PO QOD No Start Date 04/2013 Inactive Vitamin B12 1000mcg Tablet RxNorm: 1 Tablet(s) PO QD No Start Date 07/18/2017 Inactive cholestyramine (with sugar) 4 gram oral powder RxNorm: 42238 3 1 Unit(s) PO QD as needed No Start Date 05/20/2018 Inactive ProAir HFA 90 mcg/Actuation Aerosol Inhaler RxNorm: 692773 2 Puff(s) INH Q4H prn shortness of breath No Start Date 07/21/2012 Inactive pravastatin 10 mg Tab RxNorm: 393537 1 Tablet(s) PO QD No Start Date 07/21/2012 Inactive gabapentin 800 mg Tab RxNorm: 069337 1 Tablet(s) PO BID No Start Da te 06/03/2011 Inactive Endocet 10 mg-325 mg Tab RxNorm: 3510592 1 Tablet(s) PO TID No Star t Date 06/02/2009 Inactive Naproxen 500 mg Tab RxNorm: 173627 1 Tablet(s) PO BID No Start Date 0 04/05/2010 Inactive Valium 10 mg Tab RxNorm: 558686 1 Tablet(s) PO BID No Start Date 07/04 Inactive enalapril maleate 5 mg Tab RxNorm: 573000 1 Tablet(s) PO QD No Star t Date 11/15/2010 Inactive doxepin 10 mg capsule RxNorm: 9490782 2 Capsule(s) PO QHS No Start Date 09/17/2018 Inactive MS Contin 15 mg Tab RxNorm: 757193 1 Tablet(s) PO BID No Start Date 0 09/18/2010 Inactive buspirone 5 mg tablet RxNorm: 687258 1 Tablet(s) PO TID No Start Da te 12/01/2013 Inactive [place] 3 Fish Oil Cap RxNorm: 1 Capsule(s) PO QD No Start Date 07/03 Inactive enalapril maleate 5 mg Tab RxNorm: 731402 1/2 Tablet(s) PO QD No St art Date 03/07/2011 Inactive Lyrica 75 mg capsule RxNorm: 450504 1 Capsule(s) PO QHS No Start Da te 02/08/2014 Inactive Lopressor 100 mg tablet RxNorm: 807068 1 Tablet(s) PO BID No Start Date 06/08/2018 Inactive Lantus Solostar U-100 Insulin 100 unit/mL (3 mL) subcu taneous pen RxNorm: 487257 45 Unit(s) SQ QAM No Start Date 05/20/2018 Inactive aspirin 81 mg tablet RxNorm: 917459 1 Tablet(s) PO QD No Start Date 0 09/14/2015 Inactive diltiazem CD 240 mg capsule,extended release 24 hr RxNorm: 8 73438 1 Capsule(s) PO QD No Start Date 05/25/2019 Inactive insulin NPH isophane U-100 human subcutaneous RxNorm: 378456 beckwith bcutaneous No Start Date 04/20/2019 Inactive sumatriptan 100 mg tablet RxNorm: 875075 1 Tablet(s) PO at headache onset. May repeat 1 in two hours if headache remains. Max of 2 per 24 hours No Start Date 04/01/2018 Inactive gabapentin 300 mg capsule RxNorm: 306779 1 Capsule(s) PO QHS No Sta rt Date 02/04/2018 Inactive Topamax 25 mg Tab RxNorm: 191967 Oral No Start Date 03/07/2011 In active Senokot-S 8.6 mg-50 mg Tab RxNorm: 5367314 1 Tablet(s) PO QD No Sta rt Date 03/07/2011 Inactive metformin ER 500 mg 24 hr tablet,extended release RxNorm: 18 93123 1 Tablet(s) PO QD No Start Date 05/20/2018 Inactive Symbicort 80 mcg-4.5 mcg/actuation HFA Aerosol Inhaler RxNor m: 4861977 2 Puff(s) INH BID No Start Date 04/05/2013 Inactive metoprolol tartrate 25 mg tablet RxNorm: 299060 1 Tablet(s) PO BID No Start Date 05/20/2019 Inactive propranolol 60 mg Tab RxNorm: 170022 1/2 Tablet(s) PO BID No Start Date 07/21/2012 Inactive metformin ER 500 mg 24 hr tablet,extended release RxNorm: 18 03338 2 Tablet(s) PO QD No Start Date 12/16/2017 Inactive Insulin Syringe 1 mL 29 gauge x 1/2" RxNorm: 2 s yringes daily with insulin Dx: E11.65 No Start Date 10/07/2018 Inactive Amitriptyline 75 mg Tab RxNorm: 006593 1 Tablet(s) PO QHS No Start Date 10/23/2009 Inactive donepezil 10 mg Tab RxNorm: 491056 1 Tablet(s) PO QD No Start Date Inactive Lantus Solostar U-100 Insulin 100 unit/mL (3 mL) subcu taneous pen RxNorm: 055499 36 Unit(s) SQ QAM No Start Date 12/24/2017 Inactive Miacalcin 200 unit/Actuation Nasal [place] Aerosol RxNorm: 261 204 1 [place] NASAL QD Alternate nostrils each day No Start Date 04/05/2010 Inactive Amitriptyline 150 mg Tab RxNorm: 361830 1 Tablet(s) PO QHS No Start Date 01/04/2010 Inactive Bystolic 5 mg tablet RxNorm: 580030 1 Tablet(s) PO QD No Start Date 0 08/13/2012 Inactive Aricept 10 mg Tab RxNorm: 876557 1 Tablet(s) PO QD No Start Date 11/03 Inactive Lantus Solostar U-100 Insulin 100 unit/mL (3 mL) subcu taneous pen RxNorm: 800335 50 Unit(s) SQ QAM No Start Date 08/27/2018 Inactive albuterol sulfate 2.5 mg/3 mL (0.083 %) Neb Solution RxNorm: 270926 1 Unit Dose INH QID as needed No Start Date 08/23/2015 Inactive Symbicort 160 mcg-4.5 mcg/actuation HFA Aerosol Inhaler RxNo rm: 3171966 2 Puff(s) INH BID No Start Date 12/03/2011 Inactive Savella 50 mg Tab RxNorm: 698487 1 Tablet(s) PO BID No Start Date 04/2010 Inactive amitriptyline 100 mg Tab RxNorm: 672327 1 1/2 Tablet(s) PO QHS No S tart Date 06/19/2011 Inactive nystatin 100,000 unit/g Topical Cream RxNorm: 017483 Ap plication TOP BID to rash for 2-4 weeks No Start Date 01/14/2011 Inactive Trelegy Ellipta 100 mcg-62.5 mcg-25 mcg powder for inhalatio n RxNorm: 9508097 1 Puff(s) INH QD No Start Date 12/16/2017 Inactive Lyrica 150 mg capsule RxNorm: 653947 1 Capsule(s) PO QHS No Start D ate 12/04/2015 Inactive sennosides 8.6 mg tablet RxNorm: 371228 1 Tablet(s) PO BID No Start Date 09/07/2018 Inactive metformin ER 500 mg tablet,extended release 24 hr RxNorm: 86 0975 1 Tablet(s) PO QD No Start Date 10/22/2017 Inactive Fish Oil 1,000 mg Cap RxNorm: 1 Capsule(s) PO QD No Start Date 06/2011 Inactive Zyrtec 10 mg Tab RxNorm: 2856813 1 Tablet(s) PO QD No Start Date 07/03 Inactive albuterol sulfate HFA 90 mcg/actuation aerosol inhaler RxNor m: 9151801 2 Puff(s) INH Q4H as needed for cough No Start Date 09/30/2013 Inactive trazodone 150 mg tablet RxNorm: 491827 1 Tablet(s) PO QHS No Start Date 07/21/2012 Inactive Spiriva with HandiHaler 18 mcg & inhalation capsules RxNorm: 584233 1 Capsule(s) INH QD No Start Date 04/05/2013 Inactive Coreg 3.125 mg Tab RxNorm: 663681 1 Tablet(s) PO BID No Start Date Inactive Phenergan 25 mg Tab RxNorm: 030504 Tablet(s) PO PRN MIGRAINE No Sta rt Date 11/21/2009 Inactive Vitamin D 50,000 unit Cap RxNorm: 6533865 1 Capsule(s) PO QW No Sta rt Date 03/07/2011 Inactive Januvia 100 mg tablet RxNorm: 792103 1 Tablet(s) PO QD No Start Date 10/25/2015 Inactive Eliquis 5 mg tablet RxNorm: 4013653 1 Tablet(s) PO BID No Start Date 08/19/2018 Inactive Advair Diskus 500 mcg-50 mcg/Dose for Inhalation RxNorm: 045160 1 INH BID No Start Date 07/21/2012 Inactive Vitamin D3 5,000 unit tablet RxNorm: 243391 1 Tablet(s) PO QD No St art Date 07/18/2017 Inactive Amaryl 2 mg tablet RxNorm: 484329 1 Tablet(s) PO QD No Start Date 06/2015 Inactive Actos 30 mg tablet RxNorm: 620170 1 Tablet(s) PO QD No Start Date Inactive promethazine 25 mg tablet RxNorm: 272853 1 Tablet(s) PO Q4H prn N/V No Start Date 07/21/2012 Inactive ProAir HFA 90 mcg/actuation Aerosol Inhaler RxNorm: 059003 2 Puff(s) INH Q4H prn dyspnea No Start Date 07/21/2012 Inactive Dexilant 60 mg Capsule RxNorm: 072298 1 Capsule(s) PO QD No Start D ate 01/27/2012 Inactive Lantus Solostar U-100 Insulin 100 unit/mL (3 mL) subcu taneous pen RxNorm: 484541 38 Unit(s) SQ QAM No Start Date 05/20/2018 Inactive Valium 10 mg Tab RxNorm: 949659 1 Tablet(s) PO QHS AND PRN No Start Date 10/24/2009 Inactive ZOFRAN ODT 8 mg disintegrating tablet RxNorm: 749374 1 Tablet(s ) PO Q6H No Start [...] Date S ervice Location MICROALBUMIN URINE RANDOM 06031 MICRL MG/L 14.9 MG/L Unknown MICROALBUMIN URINE RANDOM 05725 XM.ALB/CRE 6.1 MG/GCR Unknown MICROALBUMIN URINE RANDOM 10439 CREAT MG/D 243 MG/DL Unknown MICROALBUMIN URINE RANDOM 52130 CRE/100 2.43 G/L 03/05 Unknown PROTEIN/CREAT URINE WITH RATIO 59099|46318 PROT R U 14 MG/D L 04/01/2014 Unknown PROTEIN/CREAT URINE WITH RATIO 38029|36795 CREAT R U 254 MG/ DL 04/01/2014 Unknown PROTEIN/CREAT URINE WITH RATIO 26850|57776 XRATIO P/C 55 MG/ G 04/01/2014 Unknown URINALYSIS 60367 PROTEIN UR NEG 04/28/2010 Unknown URINALYSIS 02575 HEMGLBN UR NEG 04/28/2010 Unknown URINALYSIS 37361 GLUCOSE UR NEG 04/28/2010 Unknown URINALYSIS 87517 KETONES UR NEG 04/28/2010 Unknown URINALYSIS 66860 PH U 5.5 04/28/2010 Unknown URINALYSIS 85928 SP GR U 1.025 04/28/2010 Unknown URINALYSIS 70658 BILRUBN UR NEG 04/28/2010 Unknown URINALYSIS 68981 LEUKO UR 2+ 04/28/2010 Unknown URINALYSIS 64248 NITRITE UR NEG 04/28/2010 Unknown MICR CUL? [id number] WBC/HPF 6-10 04/28/2010 Unknown MICR CUL? [id number] RBC/HPF 0-5 04/28/2010 Unknown MICR CUL? [id number] HYAL CAST 16-25 04/28/2010 Unknown MICR CUL? [id number] SP TO YOLIE? NO 04/28/2010 Unknown MICR CUL? [id number] APPEAR UR NORMAL 04/28/2010 Unknown MICR CUL? 0531100 SQ EPI/LPF FEW 04/28/2010 Unknown Procedures Procedure Codes Date URINALYSIS NONAUTO W/O SCOPE CPT-4: 65080 04/16/2019 URINE CULTURE/ COLONY COUNT CPT-4: 35274 04/16/2019 CEFTRIAXONE SODIUM INJECTION CPT-4: J0696 04/16/2019 THER/PROPH/DIAG INJ SC/IM CPT-4: 79882 04/16/2019 DRAIN/INJECT JOINT/BURSA CPT-4: 18826 01/22/2019 TRIAMCINOLONE ACET INJ NOS CPT-4: J3301 01/22/2019 DEXAMETHASONE SODIUM PHOS CPT-4: J1100 01/22/2019 URINE CULTURE/ COLONY COUNT CPT-4: 90772 01/07/2019 URINALYSIS NONAUTO W/O SCOPE CPT-4: 45733 01/07/2019 CEFTRIAXONE SODIUM INJECTION CPT-4: J0696 01/07/2019 THER/PROPH/DIAG INJ SC/IM CPT-4: 24569 01/07/2019 FLU VACC PRSV FREE INC ANTIG 65 AND OLDER CPT-4: 91114 12/24/2018 FLU VACC PRSV FREE INC ANTIG 65 AND OLDER CPT-4: 38835 12/24/2018 ADMIN INFLUENZA VIRUS VAC CPT-4: G0008 12/24/2018 THER/PROPH/DIAG INJ SC/IM CPT-4: 02904 11/04/2018 KETOROLAC TROMETHAMINE INJ CPT-4: J1885 11/04/2018 PROMETHAZINE HCL INJECTION CPT-4: J2550 11/04/2018 PPPS, subseq visit CPT-4: G0439 09/18/2018 THER/PROPH/DIAG INJ SC/IM CPT-4: 06123 04/01/2018 KETOROLAC TROMETHAMINE INJ CPT-4: J1885 04/01/2018 PROMETHAZINE HCL INJECTION CPT-4: J2550 04/01/2018 URINE CULTURE/ COLONY COUNT CPT-4: 10815 03/17/2018 URINALYSIS NONAUTO W/O SCOPE CPT-4: 64003 03/17/2018 FLU VACC PRSV FREE INC ANTIG 65 AND OLDER CPT-4: 64047 12/17/2017 PNEUMOCOCCAL VACC 23 RANDALL IM CPT-4: 68032 12/17/2017 ADMIN INFLUENZA VIRUS VAC CPT-4: G0008 12/17/2017 ADMIN PNEUMOCOCCAL VACCINE CPT-4: G0009 12/17/2017 PPPS, subseq visit CPT-4: G0439 09/17/2017 THER/PROPH/DIAG INJ SC/IM CPT-4: 80448 08/26/2017 KETOROLAC TROMETHAMINE INJ CPT-4: J1885 08/26/2017 PROMETHAZINE HCL INJECTION CPT-4: J2550 08/26/2017 URINALYSIS NONAUTO W/O SCOPE CPT-4: 31771 07/19/2017 URINE CULTURE/ COLONY COUNT CPT-4: 86497 07/19/2017 CEFTRIAXONE SODIUM INJECTION CPT-4: J0696 07/19/2017 THER/PROPH/DIAG INJ SC/IM CPT-4: 14541 07/19/2017 THER/PROPH/DIAG INJ SC/IM CPT-4: 99896 07/19/2017 TRIAMCINOLONE ACET INJ NOS CPT-4: J3301 07/19/2017 PRESCRIP TRANSMIT VIA ERX SY CPT-4: G8553 05/07/2017 PRESCRIP TRANSMIT VIA ERX SY CPT-4: G8553 02/22/2017 PRESCRIP TRANSMIT VIA ERX SY CPT-4: G8553 01/23/2017 FLU VACC PRSV FREE INC ANTIG 65 AND OLDER CPT-4: 70044 12/20/2016 PNEUMOCOCCAL VACC 13 RANDALL IM CPT-4: 59733 12/20/2016 ADMIN INFLUENZA VIRUS VAC CPT-4: G0008 12/20/2016 ADMIN PNEUMOCOCCAL VACCINE CPT-4: G0009 12/20/2016 URINALYSIS NONAUTO W/O SCOPE CPT-4: 94028 10/08/2016 URINE CULTURE/ COLONY COUNT CPT-4: 34903 10/08/2016 PRESCRIP TRANSMIT VIA ERX SY CPT-4: G8553 10/08/2016 PRESCRIP TRANSMIT VIA ERX SY CPT-4: G8553 09/19/2016 PRESCRIP TRANSMIT VIA ERX SY CPT-4: G8553 08/20/2016 PRESCRIP TRANSMIT VIA ERX SY CPT-4: G8553 02/29/2016 KETOROLAC TROMETHAMINE INJ CPT-4: J1885 02/02/2016 THER/PROPH/DIAG INJ SC/IM CPT-4: 03465 02/02/2016 PROMETHAZINE HCL INJECTION CPT-4: J2550 02/02/2016 PRESCRIP TRANSMIT VIA ERX SY CPT-4: G8553 02/02/2016 FLU VACC PRSV FREE INC ANTIG 65 AND OLDER CPT-4: 47127 01/05/2016 PPPS, subseq visit CPT-4: G0439 01/05/2016 ADMIN INFLUENZA VIRUS VAC CPT-4: G0008 01/05/2016 URINE CULTURE/ COLONY COUNT CPT-4: 14117 12/05/2015 URINALYSIS NONAUTO W/O SCOPE CPT-4: 67667 12/05/2015 PRESCRIP TRANSMIT VIA ERX SY CPT-4: G8553 12/05/2015 PRESCRIP TRANSMIT VIA ERX SY CPT-4: G8553 10/26/2015 URINALYSIS NONAUTO W/O SCOPE CPT-4: 72239 10/05/2015 URINE CULTURE/ COLONY COUNT CPT-4: 68628 10/05/2015 PRESCRIP TRANSMIT VIA ERX SY CPT-4: G8553 10/05/2015 SERVICE REQUIRED FOR PMD CPT-4: G0372 09/15/2015 PRESCRIP TRANSMIT VIA ERX SY CPT-4: G8553 09/15/2015 SPECIAL REPORTS OR FORMS CPT-4: 15926 08/25/2015 PRESCRIP TRANSMIT VIA ERX SY CPT-4: G8553 07/05/2015 URINALYSIS NONAUTO W/O SCOPE CPT-4: 94880 03/30/2015 ASSAY, GLUCOSE, BLOOD QUANT CPT-4: 66580 03/30/2015 URINE CULTURE/ COLONY COUNT CPT-4: 08014 03/30/2015 PRESCRIP TRANSMIT VIA ERX SY CPT-4: G8553 03/30/2015 PRESCRIP TRANSMIT VIA ERX SY CPT-4: G8553 02/03/2015 FLU VACC PRSV FREE INC ANTIG 65 AND OLDER CPT-4: 12993 12/29/2014 ADMIN INFLUENZA VIRUS VAC CPT-4: G0008 12/29/2014 PRESCRIP TRANSMIT VIA ERX SY CPT-4: G8553 12/29/2014 PRESCRIP TRANSMIT VIA ERX SY CPT-4: G8553 09/02/2014 PROTEIN/CREAT URINE WITH RATIO CPT-4: 29466|20143 5 MICROALBUMIN QUANTITATIVE CPT-4: 92122 04/01/2014 PRESCRIP TRANSMIT VIA ERX SY CPT-4: G8553 03/16/2014 PRESCRIP TRANSMIT VIA ERX SY CPT-4: G8553 03/09/2014 THER/PROPH/DIAG INJ SC/IM CPT-4: 95299 03/01/2014 TRIAMCINOLONE ACET INJ NOS CPT-4: J3301 03/01/2014 PRESCRIP TRANSMIT VIA ERX SY CPT-4: G8553 02/09/2014 URINE CULTURE/ COLONY COUNT CPT-4: 68761 10/30/2013 URINALYSIS NONAUTO W/O SCOPE CPT-4: 77589 10/21/2013 URINE CULTURE/ COLONY COUNT CPT-4: 65990 10/21/2013 DESTRUCT PREMALG LESION (Cryosurgery) CPT-4: 25082 PRESCRIP TRANSMIT VIA ERX SY CPT-4: G8553 10/05/2013 URINALYSIS NONAUTO W/O SCOPE CPT-4: 59503 08/04/2013 URINE CULTURE/ COLONY COUNT CPT-4: 74999 08/04/2013 PRESCRIP TRANSMIT VIA ERX SY CPT-4: G8553 08/04/2013 THER/PROPH/DIAG INJ SC/IM CPT-4: 85292 07/13/2013 TRIAMCINOLONE ACET INJ NOS CPT-4: J3301 07/13/2013 PRESCRIP TRANSMIT VIA ERX SY CPT-4: G8553 05/27/2013 URINALYSIS NONAUTO W/O SCOPE CPT-4: 33014 05/25/2013 URINE CULTURE/ COLONY COUNT CPT-4: 81784 05/25/2013 THER/PROPH/DIAG INJ SC/IM CPT-4: 04613 05/04/2013 VITAMIN B12 INJECTION CPT-4: J3420 05/04/2013 THER/PROPH/DIAG INJ SC/IM CPT-4: 96756 04/17/2013 VITAMIN B12 INJECTION CPT-4: J3420 04/17/2013 THER/PROPH/DIAG INJ SC/IM CPT-4: 07969 04/17/2013 METHYLPREDNISOLONE 40 MG INJ CPT-4: J1030 04/17/2013 TRIAMCINOLONE ACET INJ NOS CPT-4: J3301 04/17/2013 URINALYSIS NONAUTO W/O SCOPE CPT-4: 49243 04/06/2013 URINE CULTURE/ COLONY COUNT CPT-4: 72521 04/06/2013 PRESCRIP TRANSMIT VIA ERX SY CPT-4: G8553 04/06/2013 KETOROLAC TROMETHAMINE INJ CPT-4: J1885 06/25/2012 PROMETHAZINE HCL INJECTION CPT-4: J2550 06/25/2012 THER/PROPH/DIAG INJ SC/IM CPT-4: 00098 06/25/2012 THER/PROPH/DIAG INJ SC/IM CPT-4: 27633 06/24/2012 METHYLPREDNISOLONE 40 MG INJ CPT-4: J1030 06/24/2012 TRIAMCINOLONE ACET INJ NOS CPT-4: J3301 06/24/2012 URINE CULTURE/ COLONY COUNT CPT-4: 26975 06/24/2012 THER/PROPH/DIAG INJ SC/IM CPT-4: 02117 05/20/2012 KETOROLAC TROMETHAMINE INJ CPT-4: J1885 05/20/2012 THER/PROPH/DIAG INJ SC/IM CPT-4: 13860 05/20/2012 PROMETHAZINE HCL INJECTION CPT-4: J2550 05/20/2012 DRAIN/INJECT JOINT/BURSA CPT-4: 87538 02/13/2012 METHYLPREDNISOLONE 40 MG INJ CPT-4: J1030 02/13/2012 TRIAMCINOLONE ACET INJ NOS CPT-4: J3301 02/13/2012 THER/PROPH/DIAG INJ SC/IM CPT-4: 68519 11/14/2011 METHYLPREDNISOLONE 40 MG INJ CPT-4: J1030 11/14/2011 TRIAMCINOLONE ACET INJ NOS CPT-4: J3301 11/14/2011 THER/PROPH/DIAG INJ SC/IM CPT-4: 05667 09/12/2011 KETOROLAC TROMETHAMINE INJ CPT-4: J1885 09/12/2011 THER/PROPH/DIAG INJ SC/IM CPT-4: 13805 08/09/2011 METHYLPREDNISOLONE 40 MG INJ CPT-4: J1030 08/09/2011 TRIAMCINOLONE ACET INJ NOS CPT-4: J3301 08/09/2011 URINE CULTURE/ COLONY COUNT CPT-4: 68717 07/03/2011 URINE CULTURE/ COLONY COUNT CPT-4: 54589 06/04/2011 THER/PROPH/DIAG INJ SC/IM CPT-4: 40100 05/03/2011 METHYLPREDNISOLONE 40 MG INJ CPT-4: J1030 05/03/2011 TRIAMCINOLONE ACET INJ NOS CPT-4: J3301 05/03/2011 URINALYSIS NONAUTO W/O SCOPE CPT-4: 79533 01/24/2011 URINE CULTURE/ COLONY COUNT CPT-4: 24931 01/24/2011 FLUZONE, 5ML (Medicare) CPT-4: Q2038 01/02/2011 ADMIN INFLUENZA VIRUS VAC CPT-4: G0008 01/02/2011 ASSAY, GLUCOSE, BLOOD QUANT CPT-4: 27040 12/07/2010 URINE CULTURE/ COLONY COUNT CPT-4: 92629 11/02/2010 THER/PROPH/DIAG INJ SC/IM CPT-4: 49347 10/18/2010 METHYLPREDNISOLONE 40 MG INJ CPT-4: J1030 10/18/2010 TRIAMCINOLONE ACET INJ NOS CPT-4: J3301 10/18/2010 TRIAMCINOLONE ACET INJ NOS CPT-4: J3301 05/11/2010 METHYLPREDNISOLONE 40 MG INJ CPT-4: J1030 05/11/2010 THER/PROPH/DIAG INJ SC/IM CPT-4: 63932 05/11/2010 TRIAMCINOLONE ACET INJ NOS CPT-4: J3301 02/09/2010 METHYLPREDNISOLONE 40 MG INJ CPT-4: J1030 02/09/2010 THER/PROPH/DIAG INJ SC/IM CPT-4: 98633 02/09/2010 SERVICE REQUIRED FOR PMD CPT-4: G0372 02/09/2010 FLU VACCINE 3 YRS & > IM UP 64 CPT-4: 52198 0 PNEUMOCOCCAL VACC 23 RANDALL IM CPT-4: 23351 12/07/2009 ADMIN INFLUENZA VIRUS VAC CPT-4: G0008 12/07/2009 ADMIN PNEUMOCOCCAL VACCINE CPT-4: G0009 12/07/2009 TRIAMCINOLONE ACET INJ NOS CPT-4: J3301 05/26/2009 THER/PROPH/DIAG INJ SC/IM CPT-4: 88323 05/26/2009 METHYLPREDNISOLONE 80 MG INJ CPT-4: J1040 [...] 1: 114/72 Code: 8480-6 BMI: 37.8 Code: 98265-4 Heart Rate 1: 72 bpm Height: 5'3" [...] 1: 106/68 Code: 8480-6 BMI: 35.7 Code: 29212-3 Heart Rate 1: 72 bpm Height: 5'4" Respiratory Rate: 20 bpm SpO2: 98% Tempera ture: 36.7 (C) / 98.0 (F) Weight: 208 lbs 04/16/2018 Blood Pressure 1: 132/82 Code: 8480-6 BMI: 37.9 Code: 39252-5 Heart Rate 1: 72 bpm Height: 5'4" Respiratory Rate: 20 bpm SpO2: 96% Tempera ture: 37.1 (C) / 98.8 (F) Weight: 221 lbs 04/01/2018 Blood Pressure 1: 150/90 Code: 8480-6 Heart Rate 1: 72 bpm Respiratory Rate: 22 bpm SpO2: 95% Temperature: 36.4 (C) / 97.6 (F) We ight: 216 lbs 03/06/2018 Blood Pressure 1: 126/78 Code: 8480-6 BMI: 37.4 Code: 39008-1 Heart Rate 1: 68 bpm Height: 5'4" [...] ight: 222 lbs 12/25/2017 BMI: 37.8 Code: 44024-2 Heart Rate 1: 76 bpm Height: 5 '4" Respiratory Rate: 20 bpm SpO2: 96% Temperature: 37.3 (C) / 99.2 (F) Weight: 220 lbs 12/17/2017 Blood Pressure 1: 132/78 Code: 8480-6 BMI: 37.2 Code: 15230-7 Heart Rate 1: 88 bpm Height: 5'4" Respiratory Rate: 20 bpm SpO2: 96% Tempera ture: 37.3 (C) / 99.2 (F) Weight: 217 lbs 10/30/2017 Blood Pressure 1: 114/68 Code: 8480-6 BMI: 36.4 Code: 43358-3 Heart Rate 1: 72 bpm Height: 5'4" Respiratory Rate: 22 bpm SpO2: 96% Tempera ture: 36.8 (C) / 98.2 (F) Weight: 212 lbs 10/23/2017 Blood Pressure 1: 124/78 Code: 8480-6 Heart Rate 1: 72 bpm Respiratory Rate: 24 bpm SpO2: 94% Temperature: 36.6 (C) / 97.9 (F) We ight: 212 lbs 09/17/2017 Blood Pressure 1: 128/82 Code: 8480-6 BMI: 37.4 Code: 92601-0 Heart Rate 1: 72 bpm Height: 5'4" Respiratory Rate: 20 bpm SpO2: 96% Tempera ture: 37.0 (C) / 98.6 (F) Weight: 218 lbs 07/19/2017 Blood Pressure 1: 136/84 Code: 8480-6 BMI: 36.6 Code: 36931-4 Heart Rate 1: 88 bpm Height: 5'4" Respiratory Rate: 20 bpm SpO2: 97% Tempera ture: 36.7 (C) / 98.0 (F) Weight: 213 lbs 05/29/2017 Blood Pressure 1: 136/82 Code: 8480-6 BMI: 36.7 Code: 64288-8 Heart Rate 1: 72 bpm Height: 5'4" Respiratory Rate: 20 bpm SpO2: 97% Tempera ture: 36.9 (C) / 98.4 (F) Weight: 214 lbs 05/07/2017 Blood Pressure 1: 122/80 Code: 8480-6 BMI: 37.1 Code: 36566-5 Heart Rate 1: 80 bpm Height: 5'4" Respiratory Rate: 24 bpm SpO2: 96% Tempera ture: 36.1 (C) / 97.0 (F) Weight: 216 lbs 03/18/2017 BMI: 36.7 Code: 91249-7 Heart Rate 1: 80 bpm Height: 5 '4" Respiratory Rate: 22 bpm SpO2: 95% Temperature: 36.9 (C) / 98.4 (F) Weight: 214 lbs 02/27/2017 Blood Pressure 1: 146/94 Code: 8480-6 BMI: 36.6 Code: 75646-9 Heart Rate 1: 76 bpm Height: 5'4" Respiratory Rate: 22 bpm SpO2: 97% Tempera ture: 36.6 (C) / 97.9 (F) Weight: 213 lbs 02/22/2017 Blood Pressure 1: 126/90 Code: 8480-6 BMI: 36.4 Code: 75216-5 Heart Rate 1: 84 bpm Height: 5'4" Respiratory Rate: 22 bpm SpO2: 95% Tempera ture: 36.9 (C) / 98.4 (F) Weight: 212 lbs 01/23/2017 Blood Pressure 1: 146/82 Code: 8480-6 BMI: 37.6 Code: 61325-5 Heart Rate 1: 96 bpm Height: 5'4" Respiratory Rate: 20 bpm SpO2: 96% Tempera ture: 36.9 (C) / 98.4 (F) Weight: 219 lbs 12/20/2016 Blood Pressure 1: 126/70 Code: 8480-6 BMI: 37.2 Code: 47540-1 Heart Rate 1: 76 bpm Height: 5'4" Respiratory Rate: 22 bpm SpO2: 95% Tempera ture: 36.6 (C) / 97.8 (F) Weight: 217 lbs 10/08/2016 Blood Pressure 1: 128/82 Code: 8480-6 BMI: 36.9 Code: 83243-5 Heart Rate 1: 76 bpm Height: 5'4" Respiratory Rate: 20 bpm SpO2: 95% Tempera ture: 37.0 (C) / 98.6 (F) Weight: 215 lbs 09/19/2016 Blood Pressure 1: 144/78 Code: 8480-6 BMI: 37.8 Code: 69022-2 Heart Rate 1: 76 bpm Height: 5'4" Respiratory Rate: 22 bpm SpO2: 95% Tempera ture: 37.0 (C) / 98.6 (F) Weight: 220 lbs 08/20/2016 Blood Pressure 1: 140/86 Code: 8480-6 BMI: 37.4 Code: 73162-6 Heart Rate 1: 80 bpm Height: 5'4" Respiratory Rate: 20 bpm SpO2: 95% Tempera ture: 36.9 (C) / 98.4 (F) Weight: 218 lbs 06/19/2016 Blood Pressure 1: 124 Code: 8480-6 BMI: 37.8 Code: 46090-9 Heart Rate 1: 74 bpm Height: 5'4" Respiratory Rate: 24 bpm SpO2: 96% Tempera ture: 36.9 (C) / 98.4 (F) Weight: 220 lbs 06/04/2016 Blood Pressure 1: 12478 Code: 8480-6 BMI: 38.8 Code: 64769-7 Heart Rate 1: 72 bpm Height: 5'4" Respiratory Rate: 24 bpm SpO2: 95% Tempera ture: 36.8 (C) / 98.2 (F) Weight: 226 lbs 05/02/2016 Blood Pressure 1: 136/90 Code: 8480-6 BMI: 37.6 Code: 50190-9 Heart Rate 1: 72 bpm Height: 5'4" Respiratory Rate: 24 bpm SpO2: 96% Tempera ture: 36.9 (C) / 98.4 (F) Weight: 219 lbs 04/03/2016 Blood Pressure 1: 126/78 Code: 8480-6 BMI: 38.1 Code: 52963-5 Heart Rate 1: 72 bpm Height: 5'4" Respiratory Rate: 22 bpm SpO2: 94% Tempera ture: 36.9 (C) / 98.4 (F) Weight: 222 lbs 02/29/2016 Blood Pressure 1: 132/78 Code: 8480-6 Heart Rate 1: 78 bpm Height: Respiratory Rate: 24 bpm SpO2: 95% Temperature: 36.4 (C) / 97.6 (F) We ight: 02/02/2016 Blood Pressure 1: 124/78 Code: 8480-6 BMI: 37.6 Code: 75947-1 Heart Rate 1: 76 bpm Height: 5'4" Respiratory Rate: 20 bpm SpO2: 95% Tempera ture: 36.8 (C) / 98.2 (F) Weight: 219 lbs 01/05/2016 Blood Pressure 1: 126/70 Code: 8480-6 BMI: 37.1 Code: 09210-6 Heart Rate 1: 76 bpm Height: 5'4" Respiratory Rate: 20 bpm Temperature: 36 .6 (C) / 97.8 (F) Weight: 216 lbs 12/05/2015 Blood Pressure 1: 126/72 Code: 8480-6 BMI: 36.9 Code: 88577-1 Heart Rate 1: 92 bpm Height: 5'4" Respiratory Rate: 20 bpm Temperature: 36 .7 (C) / 98.1 (F) Weight: 215 lbs 10/26/2015 Blood Pressure 1: 142/80 Code: 8480-6 BMI: 36.4 Code: 50844-1 Heart Rate 1: 82 bpm Height: 5'4" Respiratory Rate: 24 bpm SpO2: 92% Tempera ture: 35.9 (C) / 96.7 (F) Weight: 212 lbs 10/05/2015 Blood Pressure 1: 136/82 Code: 8480-6 Heart Rate 1: 80 bpm Respiratory Rate: 18 bpm SpO2: 98% Temperature: 35.7 (C) / 96.3 (F) We ight: 214 lbs 09/15/2015 Blood Pressure 1: 116/80 Code: 8480-6 BMI: 34.6 Code: 65817-6 Heart Rate 1: 76 bpm Height: 5'6" Respiratory Rate: 20 bpm Temperature: 36 .6 (C) / 97.9 (F) Weight: 211 lbs 08/24/2015 Blood Pressure 1: 124/80 Code: 8480-6 BMI: 34.1 Code: 40128-3 Heart Rate 1: 68 bpm Height: 5'6" Respiratory Rate: 20 bpm Temperature: 36 .8 (C) / 98.3 (F) Weight: 208 lbs 07/05/2015 Blood Pressure 1: 114/78 Code: 8480-6 BMI: 33.9 Code: 50299-3 Heart Rate 1: 80 bpm Height: 5'6" Respiratory Rate: 20 bpm Temperature: 36 .6 (C) / 97.9 (F) Weight: 207 lbs 06/06/2015 Blood Pressure 1: 122/78 Code: 8480-6 BMI: 34.1 Code: 15413-4 Heart Rate 1: 76 bpm Height: 5'6" Respiratory Rate: 24 bpm SpO2: 96% Tempera ture: 36.4 (C) / 97.6 (F) Weight: 208 lbs 05/23/2015 Blood Pressure 1: 124/78 Code: 8480-6 Heart Rate 1: 76 bpm Respiratory Rate: 24 bpm SpO2: 93% Temperature: 36.8 (C) / 98.2 (F) We ight: 212 lbs 05/05/2015 Blood Pressure 1: 136/80 Code: 8480-6 BMI: 35.4 Code: 94146-0 Heart Rate 1: 76 bpm Height: 5'6" Respiratory Rate: 28 bpm Temperature: 37 .0 (C) / 98.6 (F) Weight: 216 lbs 03/30/2015 Blood Pressure 1: 132/86 Code: 8480-6 BMI: 35.2 Code: 99925-4 Heart Rate 1: 84 bpm Height: 5'6" Respiratory Rate: 24 bpm Temperature: 36 .7 (C) / 98.0 (F) Weight: 215 lbs 02/03/2015 Blood Pressure 1: 122/74 Code: 8480-6 BMI: 35.7 Code: 29657-9 Heart Rate 1: 84 bpm Height: 5'6" Respiratory Rate: 20 bpm Temperature: 36 .9 (C) / 98.5 (F) Weight: 218 lbs 12/29/2014 Blood Pressure 1: 132/80 Code: 8480-6 BMI: 35.1 Code: 64859-9 Heart Rate 1: 80 bpm Height: 5'6" Respiratory Rate: 20 bpm Temperature: 36 .6 (C) / 97.8 (F) Weight: 214 lbs 09/02/2014 Blood Pressure 1: 128/92 Code: 8480-6 BMI: 34.7 Code: 88611-7 Heart Rate 1: 84 bpm Height: 5'6" Respiratory Rate: 26 bpm Temperature: 36 .8 (C) / 98.2 (F) Weight: 212 lbs 08/25/2014 Blood Pressure 1: 124/80 Code: 8480-6 BMI: 34.7 Code: 88567-2 Heart Rate 1: 78 bpm Height: 5'6" Respiratory Rate: 22 bpm SpO2: 97% Tempera ture: 36.6 (C) / 97.8 (F) Weight: 212 lbs 04/01/2014 Blood Pressure 1: 142/84 Code: 8480-6 BMI: 34.4 Code: 37333-8 Heart Rate 1: 74 bpm Height: 5'5" Respiratory Rate: 20 bpm Temperature: 36 .4 (C) / 97.6 (F) Weight: 207 lbs 03/16/2014 Blood Pressure 1: 142/90 Code: 8480-6 BMI: 34.6 Code: 36223-7 Heart Rate 1: 76 bpm Height: 5'5" Respiratory Rate: 24 bpm Temperature: 36 .5 (C) / 97.7 (F) Weight: 208 lbs 03/09/2014 Blood Pressure 1: 116/70 Code: 8480-6 BMI: 35.3 Code: 79073-9 Heart Rate 1: 72 bpm Height: 5'5" [...] 1: 128/86 Code: 8480-6 BMI: 34.3 Code: 78973-0 Heart Rate 1: 84 bpm Height: 5'5" Respiratory Rate: 20 bpm Temperature: 36 .7 (C) / 98.0 (F) Weight: 206 lbs 12/23/2013 Blood Pressure 1: 122/70 Code: 8480-6 BMI: 34.3 Code: 18838-0 Heart Rate 1: 68 bpm Height: 5'5" Respiratory Rate: 20 bpm Temperature: 36 .8 (C) / 98.2 (F) Weight: 206 lbs 10/05/2013 Blood Pressure 1: 118/76 Code: 8480-6 BMI: 34.1 Code: 51360-8 Heart Rate 1: 68 bpm Height: 5'5" Respiratory Rate: 20 bpm SpO2: 98% Tempera ture: 36.6 (C) / 97.9 (F) Weight: 205 lbs 08/04/2013 Blood Pressure 1: 126/82 Code: 8480-6 BMI: 33.3 Code: 92209-8 Heart Rate 1: 76 bpm Height: 5'5" Respiratory Rate: 20 bpm Temperature: 36 .8 (C) / 98.2 (F) Weight: 200 lbs 07/03/2013 Blood Pressure 1: 124/82 Code: 8480-6 BMI: 33.3 Code: 17772-9 Heart Rate 1: 72 bpm Height: 5'5" Respiratory Rate: 22 bpm Temperature: 36 .1 (C) / 97.0 (F) Weight: 200 lbs 05/27/2013 Blood Pressure 1: 126/82 Code: 8480-6 Heart Rate 1: 74 bpm Respiratory Rate: 20 bpm Temperature: 36.0 (C) / 96.8 (F) Weight: 199 lbs 04/06/2013 Blood Pressure 1: 118/80 Code: 8480-6 BMI: 35.2 Code: 36393-8 Heart Rate 1: 80 bpm Height: 5'4" Respiratory Rate: 20 bpm Temperature: 37 .4 (C) / 99.3 (F) Weight: 205 lbs 11/10/2012 Blood Pressure 1: 128/82 Code: 8480-6 Heart Rate 1: 84 bpm Respiratory Rate: 20 bpm Temperature: 36.7 (C) / 98.0 (F) Weight: 199 lbs 09/02/2012 Blood Pressure 1: 116/82 Code: 8480-6 BMI: 34.2 Code: 70941-2 Heart Rate 1: 88 bpm Height: 5'4" Respiratory Rate: 22 bpm Temperature: 36 .6 (C) / 97.8 (F) Weight: 199 lbs 08/04/2012 Blood Pressure 1: 128/74 Code: 8480-6 BMI: 34.0 Code: 85280-3 Heart Rate 1: 92 bpm Height: 5'4" Respiratory Rate: 20 bpm Temperature: 36 .4 (C) / 97.5 (F) Weight: 198 lbs 07/21/2012 Blood Pressure 1: 124/86 Code: 8480-6 Heart Rate 1: 116 bpm Respiratory Rate: 24 bpm Temperature: 36.8 (C) / 98.2 (F) 07/02/2012 Blood Pressure 1: 116/88 Code: 8480-6 BMI: 33.6 Code: 74617-7 Heart Rate 1: 76 bpm Height: 5'4" Respiratory Rate: 20 bpm Temperature: 36 .8 (C) / 98.3 (F) Weight: 196 lbs 06/24/2012 Blood Pressure 1: 124/80 Code: 8480-6 BMI: 34.3 Code: 59704-5 Heart Rate 1: 72 bpm Height: 5'4" SpO2: 96% Temperature: 36.3 (C) / 97.3 (F) Weight: 200 lbs 05/20/2012 Blood Pressure 1: 116/88 Code: 8480-6 BMI: 33.8 Code: 53796-7 Heart Rate 1: 80 bpm Height: 5'4" Respiratory Rate: 22 bpm Temperature: 36 .9 (C) / 98.4 (F) Weight: 197 lbs 05/08/2012 Blood Pressure 1: 128/86 Code: 8480-6 BMI: 33.8 Code: 85698-9 Heart Rate 1: 76 bpm Height: 5'4" Respiratory Rate: 26 bpm SpO2: 95% Tempera ture: 36.1 (C) / 97.0 (F) Weight: 197 lbs 04/22/2012 Blood Pressure 1: 106/64 Code: 8480-6 BMI: 33.8 Code: 49634-2 Heart Rate 1: 70 bpm Height: 5'4" Temperature: 36.1 (C) / 97.0 (F) Weight: 197 lbs 02/13/2012 Blood Pressure 1: 126/82 Code: 8480-6 BMI: 34.7 Code: 54046-1 Heart Rate 1: 64 bpm Height: 5'4" Respiratory Rate: 20 bpm Temperature: 36 .6 (C) / 97.8 (F) Weight: 202 lbs 01/28/2012 Blood Pressure 1: 116/80 Code: 8480-6 BMI: 34.7 Code: 15018-5 Heart Rate 1: 76 bpm Height: 5'4" Respiratory Rate: 20 bpm Temperature: 36 .8 (C) / 98.3 (F) Weight: 202 lbs 12/26/2011 Blood Pressure 1: 132/82 Code: 8480-6 BMI: 36.0 Code: 70463-1 Heart Rate 1: 68 bpm Height: 5'4" Respiratory Rate: 22 bpm Temperature: 36 .7 (C) / 98.0 (F) Weight: 210 lbs 11/14/2011 Blood Pressure 1: 124/80 Code: 8480-6 BMI: 36.4 Code: 58447-4 Heart Rate 1: 76 bpm Height: 5'4" Respiratory Rate: 20 bpm Temperature: 36 .8 (C) / 98.2 (F) Weight: 212 lbs 09/12/2011 Blood Pressure 1: 108/74 Code: 8480-6 BMI: 37.1 Code: 54388-3 Heart Rate 1: 72 bpm Height: 5'4" Respiratory Rate: 20 bpm Temperature: 37 .0 (C) / 98.6 (F) Weight: 216 lbs 08/15/2011 Blood Pressure 1: 122/80 Code: 8480-6 BMI: 36.9 Code: 64332-4 Heart Rate 1: 76 bpm Height: 5'4" Respiratory Rate: 20 bpm Temperature: 36 .2 (C) / 97.1 (F) Weight: 215 lbs 08/09/2011 Blood Pressure 1: 112/78 Code: 8480-6 BMI: 36.9 Code: 87943-0 Heart Rate 1: 68 bpm Height: 5'4" Respiratory Rate: 20 bpm Temperature: 36 .7 (C) / 98.0 (F) Weight: 215 lbs 07/03/2011 Blood Pressure 1: 140/94 Code: 8480-6 BMI: 36.2 Code: 37730-1 Heart Rate 1: 68 bpm Height: 5'4" Temperature: 36.0 (C) / 96.8 (F) Weight: 211 lbs 06/04/2011 Blood Pressure 1: 124/70 Code: 8480-6 BMI: 36.7 Code: 35369-7 Heart Rate 1: 68 bpm Height: 5'4" Respiratory Rate: 20 bpm Temperature: 36 .6 (C) / 97.9 (F) Weight: 214 lbs 05/03/2011 Blood Pressure 1: 130/76 Code: 8480-6 BMI: 36.4 Code: 07892-6 Heart Rate 1: 74 bpm Height: 5'5" Temperature: 36.2 (C) / 97.2 (F) Weight: 219 lbs 04/05/2011 Blood Pressure 1: 124/86 Code: 8480-6 BMI: 35.9 Code: 38249-5 Heart Rate 1: 76 bpm Height: 5'6" Respiratory Rate: 22 bpm Temperature: 36 .3 (C) / 97.3 (F) Weight: 219 lbs 03/08/2011 Blood Pressure 1: 112/78 Code: 8480-6 BMI: 35.1 Code: 44157-8 Heart Rate 1: 80 bpm Height: 5'6" Respiratory Rate: 26 bpm Temperature: 36 .9 (C) / 98.4 (F) Weight: 214 lbs 01/24/2011 Blood Pressure 1: 110/82 Code: 8480-6 BMI: 35.6 Code: 56874-1 Heart Rate 1: 80 bpm Height: 5'6" Temperature: 36.1 (C) / 97.0 (F) Weight: 217 lbs 01/02/2011 Blood Pressure 1: 106/72 Code: 8480-6 BMI: 35.6 Code: 79252-2 Heart Rate 1: 76 bpm Height: 5'6" [...] 1: 120/74 Code: 8480-6 BMI: 35.9 Code: 69081-8 Heart Rate 1: 72 bpm Height: 5'5" Temperature: 36.3 (C) / 97.4 (F) Weight: 216 lbs 09/19/2010 Blood Pressure 1: 124/80 Code: 8480-6 BMI: 35.4 Code: 31244-4 Heart Rate 1: 76 bpm Height: 5'5" [...] 1: 122/78 Code: 8480-6 BMI: 37.4 Code: 98060-7 Heart Rate 1: 84 bpm Height: 5'5" [...] 10/30/2017 follow up 10/23/2017 Hospital fwup from [facility] Annual Checkup 09/17/2017 Wellness Physical fo r [...] 07/24/16 follow up 06/19/2016 [facility] week [facility] owup follow up 06/04/2016 1mo fwup follow up 05/02/2016 Hospital fwup follow up 04/03/2016 dyspnea 02/29/2016 low grade 99s follow up 02/02/2016 ER fwup diabetes mellitus 01/05/2016 painful urination 12/05/2015 follow up 10/26/2015 ER visit from at [facility] for COPD Exacerbation follow up 10/05/2015 ER Visit gait abnormality 09/15/2015 Patient requesting kelly pineda paperwork to be filled out disturbances of thinking 08/24/2015 follow up 07/05/2015 4wk fwup follow up 06/06/2015 Hospital fw cough 05/23/2015 follow up 05/05/2015 dyspnea 03/30/2015 [facility] needs new orde r for O2 abdominal pain 02/03/2015 cyst 12/29/2014 vs abscess follow up 09/02/2014 [facility] fw headache 08/25/2014 facial drooping follow up 04/01/2014 ER follow up 03/16/2014 1wk fwup follow up 03/09/2014 1mo fwup and bronchi tis fwup follow up 03/03/2014 2 day follow up 03/01/2014 ER follow up 02/09/2014 [facility] gastroesophageal reflux 12/23/2013 painful urination 10/30/2013 [...] 06/24/2012 1mo fwup follow up 05/20/2012 2wk [facility] dyskinesia or tremor 05/08/2012 follow up 04/22/2012 fainting shoulder pain 02/13/2012 refill trazadone to [facility] follow up 01/28/2012 ER fwup follow up 12/26/2011 1mo fwup follow up 11/14/2011 2mo fwup follow up 09/12/2011 1mo fwup follow up 08/15/2011 ER fwup follow up 08/09/2011 follow up 07/03/2011 hospital stay follow up 06/04/2011 2mo fw headache 05/03/2011 follow up 04/05/2011 1mo fwup follow up 03/08/2011 2wk [facility] fw dizziness 01/24/2011 frequent falling follow up 01/02/2011 decreased enalapril and propranolol rash 12/07/2010 under breasts/abdome n fold follow up 11/16/2010 1mo fwup follow up 11/02/2010 ER fwup follow up 10/18/[address] Medrano last w tlingit & haida, having increased allergy symptoms. Would like steroid [...] month f/u follow up 12/07/2009 from long-term [facility], done with PT--finished about 2wks [...] Diagnosis: LION (obstructive sleep apnea)[ICD10: G47.33] Pattie [employer] CPT-4: 99260 08/10/2019 ([id number]) OFFICE/OUTPATIENT VISIT EST Diagnosis: Pelvic pain in female[ICD10: R10.2] Diagnosis: Left leg swelling[ICD10: M79.89] Diagnosis: Dyspnea[ICD10: R06.00] Diagnosis: Constipation[ICD10: K59.00] Pattie BRUNSON S. O RENDER DO [facility] CPT-4: 08635 08/04/2019 ([id number]) OFFICE/OUTPATIENT VISIT EST Diagnosis: Inspiratory stridor[ICD10: R06.1] Diagnosis: Diarrhea[ICD10: R19.7] Belia [facility] [employer] CPT-4: 9921 3 07/06/2019 ([id number]) OFFICE/OUTPATIENT VISIT EST Diagnosis: Left leg swelling[ICD10: M79.89] Diagnosis: Dyspnea[ICD10: R06.00] Belia [employer] CPT-4: 9921 3 06/24/2019 ([id number]) OFFICE/OUTPATIENT VISIT EST Diagnosis: Acute bronchitis[ICD10: J20.9] Diagnosis: Colitis[ICD10: K52.9] Belia REID [facility] CPT-4: 97686 06/16/2019 ([id number]) OFFICE/OUTPATIENT VISIT EST Diagnosis: Diarrhea[ICD10: R19.7] Diagnosis: Abdominal bloating[ICD10: R14.0] Belia Reid [facility] CPT- 4: 58581 06/08/2019 ([id number]) OFFICE/OUTPATIENT VISIT EST Diagnosis: Acute febrile illness[ICD10: R50.9] Diagnosis: Colitis[ICD10: K52.9] Belia Reid [facility] CPT-4: 47500 05/26/2019 ([id number]) OFFICE/OUTPATIENT VISIT EST Diagnosis: Chronic obstructive pulmonary disease, unspecified[ICD10: J44.9] Diagnosis: Pulmonary fibrosis[ICD10: J84.10] Diagnosis: Intermittent stridor[ICD10: R06.1] Diagnosis: Muscle weakness[ICD10: M62.81] Belia REID [facility] CPT-4: 11737 05/13/2019 ([id number]) OFFICE/OUTPATIENT VISIT EST Diagnosis: Stridor[ICD10: R06.1] Diagnosis: COUGH[ICD10: R05] Belia REID [facility] CPT-4: 40223 05/06/2019 ([id number]) OFFICE/OUTPATIENT VISIT EST Diagnosis: Stridor[ICD10: R06.1] Diagnosis: Muscle, jerky movements (uncontrolled)[ICD10: G25.5] Belia REID [facility] CPT-4: 01064 04/29/2019 ([id number]) OFFICE/OUTPATIENT VISIT EST Diagnosis: Upper respiratory infection[ICD10: J06.9] Diagnosis: Flank pain[ICD10: R10.9] Diagnosis: Weight gain[ICD10: R63.5] Pattie AMBRIZ [facility] CPT-4: 12339 04/16/2019 ([id number]) OFFICE/OUTPATIENT VISIT EST Diagnosis: Generalized pruritus[ICD10: L29.9] Belia REID [employer] [facility] CPT-4: 64935 04/08/2019 ([id number]) OFFICE/OUTPATIENT VISIT EST Diagnosis: Acute bursitis of left shoulder[ICD10: M75.52] Diagnosis: Cervicalgia[ICD10: M54.2] Diagnosis: Chest wall pain[ICD10: R07.89] Belia SMITH [employer] CPT-4: 16053 01/22/2019 ([id number]) OFFICE/OUTPATIENT VISIT EST Diagnosis: Abdominal pain[ICD10: R10.9] Diagnosis: Pyelonephritis[ICD10: N12] Pattie DOMINGUEZ [facility] CPT-4: 87703 01/07/2019 ([id number]) OFFICE/OUTPATIENT VISIT EST Diagnosis: Low back pain[ICD10: M54.5] Diagnosis: Left lumbar radiculopathy[ICD10: M54.16] Diagnosis: Left flank pain[ICD10: R10.9] Diagnosis: Left lower quadrant pain[ICD10: R10.32] Diagnosis: FLU VACCINE[ICD10: Z23] Belia FREDERICK [facility] CPT-4: 92510 12/24/2018 ([id number]) OFFICE/OUTPATIENT VISIT EST Diagnosis: Migraine, unspecified, not intractable, without status migrainosus[ICD10: G43.909] Diagnosis: Fibromyalgia[ICD10: M79.7] Belia DOMINGUEZ [facility] CPT-4: 18371 11/20/2018 ([id number]) OFFICE/OUTPATIENT VISIT EST Diagnosis: Migraine, unspecified, intractable, without status migrainosus[ICD10: G43.919] Diagnosis: Acute sinusitis, unspecified[ICD10: J01.90] Pattie REID [facility] [employer] CPT-4: 88317 11/04/2018 ([id number]) OFFICE/OUTPATIENT VISIT EST Diagnosis: Pain in left wrist[ICD10: M25.532] Diagnosis: Other dorsalgia[ICD10: M54.89] Pattie Branjuan REID [facility] CPT-4: 52844 09/08/2018 ([id number]) OFFICE/OUTPATIENT VISIT EST Diagnosis: Acute stress reaction[ICD10: F43.0] Diagnosis: Pruritus, unspecified[ICD10: L29.9] 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, 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] Belia REID DO [facility] CPT-4: 31664 08/20/2018 ([id number]) OFFICE/OUTPATIENT VISIT EST Diagnosis: Hypotension due to drugs[ICD10: I95.2] Diagnosis: Paroxysmal atrial fibrillation[ICD10: I48.0] Diagnosis: Localized edema[ICD10: R60.0] Belia REID [facility] CPT-4: 84858 06/19/2018 ([id number]) OFFICE/OUTPATIENT VISIT EST Diagnosis: Generalized hyperhidrosis[ICD10: R61] Diagnosis: Essential (primary) hypertension[ICD10: I10] Diagnosis: Supraventricular tachycardia[ICD10: I47.1] Belia REID [facility] CPT-4: 63494 06/09/2018 ([id number]) OFFICE/OUTPATIENT VISIT EST Diagnosis: Stridor[ICD10: R06.1] Diagnosis: Dependence on supplemental oxygen[ICD10: Z99.81] Diagnosis: Weakness[ICD10: R53.1] Diagnosis: Supraventricular tachycardia[ICD10: I47.1] Belia REID [facility] CPT-4: 38270 05/21/2018 ([id number]) OFFICE/OUTPATIENT VISIT EST Diagnosis: Cervical disc disorder with radiculopathy, unspecified cervical region[ICD10: M50.10] Belia REID DO [facility] CPT-4: 25760 04/16/2018 ([id number]) OFFICE/OUTPATIENT VISIT EST Diagnosis: Migraine, unspecified, intractable, without status migrainosus[ICD10: G43.919] Diagnosis: Fibromyalgia[ICD10: M79.7] Pattie DOMINGUEZ [employer] [facility] CPT-4: 84966 04/01/2018 ([id number]) NURSE/OUTPATIENT VISIT EST Diagnosis: Hematuria, unspecified[ICD10: R31.9] Diagnosis: Dysuria[ICD10: R30.0] Belia REID DO [facility] CPT-4: 70696 03/17/2018 ([id number]) OFFICE/OUTPATIENT VISIT EST Diagnosis: Erythema intertrigo[ICD10: L30.4] Diagnosis: Chronic obstructive pulmonary disease with (acute) exacerbation[ICD10: J44.1] Diagnosis: Type 2 diabetes mellitus with hyperglycemia[ICD10: E11.65] Belia REID DO [facility] CPT-4: 64450 03/06/2018 ([id number]) OFFICE/OUTPATIENT VISIT EST Diagnosis: Cervicalgia[ICD10: M54.2] Pattie AMBRIZ DO [facility] CPT-4: 84806 02/05/2018 ([id number]) OFFICE/OUTPATIENT VISIT EST Diagnosis: Candidiasis of skin and nail[ICD10: B37.2] Diagnosis: Cervicalgia[ICD10: M54.2] Pattie AMBRIZ [facility] CPT-4: 99374 01/20/2018 ([id number]) OFFICE/OUTPATIENT VISIT EST Diagnosis: Pain in thoracic spine[ICD10: M54.6] Diagnosis: Radiculopathy, thoracic region[ICD10: M54.14] Belia REID DO [facility] CPT-4: 15216 12/25/2017 ([id number]) OFFICE/OUTPATIENT VISIT EST Diagnosis: Pain in thoracic spine[ICD10: M54.6] Diagnosis: Other muscle spasm[ICD10: M62.838] Diagnosis: FLU VACCINE[ICD10: Z23] Diagnosis: PNEUMOCOCCAL VACCINE[ICD10: Z23] Belia REID DO [facility] CPT-4: 88770 12/17/2017 ([id number]) OFFICE/OUTPATIENT VISIT EST Diagnosis: Chronic obstructive pulmonary disease with (acute) exacerbation[ICD10: J44.1] Belia REID DO [facility] CPT- 4: 81594 10/30/2017 ([id number]) OFFICE/OUTPATIENT VISIT EST Diagnosis: Chronic obstructive pulmonary disease with acute lower respiratory infection[ICD10: J44.0] Diagnosis: Mild intermittent asthma with (acute) exacerbation[ICD10: J45.21] Belia REID DO [facility] CPT-4: 38522 10/23/2017 ([id number]) NURSE/OUTPATIENT VISIT EST Diagnosis: Migraine, unspecified, not intractable, without status migrainosus[ICD10: G43.909] Belia REID DO [facility] CPT - 4: 71866 08/26/2017 ([id number]) OFFICE/OUTPATIENT VISIT EST Diagnosis: Urinary tract infection, site not specified[ICD10: N39.0] Diagnosis: Encounter for screening for osteoporosis[ICD10: Z13.820] Diagnosis: Encounter for screening mammogram for malignant neoplasm of breast[ICD10: Z12.31] Diagnosis: Acute bronchitis, unspecified[ICD10: J20.9] Pattie REID DO [facility] CPT-4: 91600 07/19/2017 ([id number]) OFFICE/OUTPATIENT VISIT EST Diagnosis: Rash and other nonspecific skin eruption[ICD10: R21] Pattie REID DO [facility] CPT-4: 60407 05/29/2017 ([id number]) OFFICE/OUTPATIENT VISIT EST Diagnosis: Diarrhea, unspecified[ICD10: R19.7] Diagnosis: Tinea corporis[ICD10: B35.4] Diagnosis: Tinea cruris[ICD10: B35.6] Diagnosis: Migraine, unspecified, not intractable, without status migrainosus[ICD10: G43.909] Belia REID DO [facility] CPT - 4: 80367 05/07/2017 ([id number]) OFFICE/OUTPATIENT VISIT EST Diagnosis: Stridor[ICD10: R06.1] Diagnosis: Chronic obstructive pulmonary disease with (acute) exacerbation[ICD10: J44.1] Belia REID DO [facility] CPT- 4: 11105 03/18/2017 ([id number]) OFFICE/OUTPATIENT VISIT EST Diagnosis: Type 2 diabetes mellitus with hyperglycemia[ICD10: E11.65] Belia REID DO [facility] CPT-4: 19540 02/27/2017 OFFICE/OUTPATIENT VISIT EST Diagnosis: Type 2 diabetes mellitus with hyperglycemia[ICD10: E11.65] Pattie REID DO [facility] CPT-4: 49542 02/22/2017 ([id number]) OFFICE/OUTPATIENT VISIT EST Diagnosis: Urinary tract infection, site not specified[ICD10: N39.0] Diagnosis: Pneumonia, unspecified organism[ICD10: J18.9] Diagnosis: Type 2 diabetes mellitus with hyperglycemia[ICD10: E11.65] Belia REID [facility] CPT-4: 97175 01/23/2017 ([id number]) OFFICE/OUTPATIENT VISIT EST Diagnosis: Type 2 diabetes mellitus with hyperglycemia[ICD10: E11.65] Diagnosis: Localized edema[ICD10: R60.0] Diagnosis: PNEUMOCOCCAL VACCINE[ICD10: Z23] Diagnosis: FLU VACCINE[ICD10: Z23] Belia FREDERICK [facility] CPT-4: 90511 12/20/2016 OFFICE/OUTPATIENT VISIT EST Diagnosis: Pain in thoracic spine[ICD10: M54.6] Diagnosis: Low back pain[ICD10: M54.5] Diagnosis: Cervicalgia[ICD10: M54.2] Diagnosis: Cough[ICD10: R05] Celeste Ferreira BELIA REID [facility] CPT-4: 71678 10/08/2016 ([id number]) OFFICE/OUTPATIENT VISIT EST Diagnosis: Primary insomnia[ICD10: F51.01] Diagnosis: Migraine, unspecified, not intractable, without status migrainosus[ICD10: G43.909] Diagnosis: Type 2 diabetes mellitus with hyperglycemia[ICD10: E11.65] Belia REID [facility] CPT-4: 06564 09/19/2016 ([id number]) OFFICE/OUTPATIENT VISIT EST Diagnosis: Migraine, unspecified, not intractable, without status migrainosus[ICD10: G43.909] Diagnosis: Generalized abdominal pain[ICD10: R10.84] Diagnosis: Cough[ICD10: R05] Belia Anushka REID [facility] CPT-4: 54193 08/20/2016 ([id number]) OFFICE/OUTPATIENT VISIT EST Diagnosis: Chronic obstructive pulmonary disease, unspecified[ICD10: J44.9] Diagnosis: Stridor[ICD10: R06.1] Belia REID DO [facility] CPT-4: 72963 06/19/2016 ([id number]) OFFICE/OUTPATIENT VISIT EST Diagnosis: Chronic obstructive pulmonary disease, unspecified[ICD10: J44.9] Diagnosis: Personal history of urinary (tract) infections[ICD10: Z87.440] Belia REID DO [facility] CPT-4: 45432 06/04/2016 ([id number]) OFFICE/OUTPATIENT VISIT EST Diagnosis: Stridor[ICD10: R06.1] Diagnosis: Chronic obstructive pulmonary disease with acute lower respiratory infection[ICD10: J44.0] Diagnosis: Other specified diseases of intestine[ICD10: K63.89] Diagnosis: Cystitis, unspecified without hematuria[ICD10: N30.90] Belia REID [employer] [facility] CPT-4: 88660 05/02/2016 ([id number]) OFFICE/OUTPATIENT VISIT EST Diagnosis: Fibromyalgia[ICD10: M79.7] Diagnosis: Urinary tract infection, site not specified[ICD10: N39.0] Belia REID DO [facility] CPT-4: 49595 04/03/2016 ([id number]) OFFICE/OUTPATIENT VISIT EST Diagnosis: Unspecified asthma, uncomplicated[ICD10: J45.909] Diagnosis: Cough[ICD10: R05] Lidia Jaiden REID DO [facility] T-4: 23166 02/29/2016 ([id number]) OFFICE/OUTPATIENT VISIT EST Diagnosis: Migraine, unspecified, intractable, without status migrainosus[ICD10: G43.919] Diagnosis: Urinary tract infection, site not specified[ICD10: N39.0] Belia REID DO [facility] CPT-4: 12009 02/02/2016 ([id number]) OFFICE/OUTPATIENT VISIT EST Diagnosis: Urinary tract infection, site not specified[ICD10: N39.0] Diagnosis: Unspecified abdominal pain[ICD10: R10.9] Diagnosis: Pain in thoracic spine[ICD10: M54.6] Diagnosis: Type 2 diabetes mellitus with diabetic neuropathic arthropathy[ICD10: E11.610] Belia Yandelisabellaannie HSUBELIA BushraMayda ANUSHKA [employer] [facility] CPT-4: 99832 12/05/2015 ([id number]) OFFICE/OUTPATIENT VISIT EST Diagnosis: Chronic obstructive pulmonary disease with (acute) exacerbation[ICD10: J44.1] Diagnosis: Migraine, unspecified, not intractable, without status migrainosus[ICD10: G43.909] Lidia HSUQUELINE BushraMayda ANUSHKA [employer] [facility] CPT -4: 00696 10/26/2015 ([id number]) OFFICE/OUTPATIENT VISIT EST Diagnosis: Hematuria, unspecified[ICD10: R31.9] Diagnosis: Urinary tract infection, site not specified[ICD10: N39.0] Lidia Jaiden BELIA BsuhraMayda ANUSHKA [employer] [facility] CPT-4: 08416 10/05/2015 OFFICE/OUTPATIENT VISIT EST Diagnosis: Chronic obstructive pulmonary disease, unspecified[ICD10: J44.9] Diagnosis: Muscle weakness (generalized)[ICD10: M62.81] Diagnosis: Polyneuropathy, unspecified[ICD10: G62.9] Diagnosis: Other intervertebral disc degeneration, 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] Diagnosis: Fibromyalgia[ICD10: M79.7] Belia Yandelisabellaannie HSUBELIA Yuridia DOMINGUEZ [employer] [facility] CPT-4: 45364 09/15/2015 ([id number]) OFFICE/OUTPATIENT VISIT EST Diagnosis: Disorientation, unspecified[ICD10: R41.0] Diagnosis: Headache[ICD10: R51] Diagnosis: Paresthesia of skin[ICD10: R20.2] Lidia Paredes BushraMayda ANUSHKA [employer] [facility] CPT-4: 47155 08/24/2015 ([id number]) OFFICE/OUTPATIENT VISIT EST Diagnosis: Type 2 diabetes mellitus with hyperglycemia[ICD10: E11.65] Diagnosis: Chronic obstructive pulmonary disease with acute lower respiratory infection[ICD10: J44.0] Belia BRUNSON BushraMayda ANUSHKA [employer] [facility] CPT-4: 13029 07/05/2015 ([id number]) OFFICE/OUTPATIENT VISIT EST Diagnosis: Mild intermittent asthma with (acute) exacerbation[ICD10: J45.21] Diagnosis: Chronic obstructive pulmonary disease, unspecified[ICD10: J44.9] Belia REID [facility] CPT-4: 98162 06/06/2015 ([id number]) OFFICE/OUTPATIENT VISIT EST Diagnosis: Chronic obstructive pulmonary disease with (acute) exacerbation[ICD10: J44.1] Lidia REID [facility] CPT- 4: 19262 05/23/2015 ([id number]) OFFICE/OUTPATIENT VISIT EST Diagnosis: Type 2 diabetes mellitus with hyperglycemia[ICD10: E11.65] Diagnosis: Functional dyspepsia[ICD10: K30] Belia REID [facility] CPT-4: 86348 05/05/2015 ([id number]) OFFICE/OUTPATIENT VISIT EST Diagnosis: Type 2 diabetes mellitus with hyperglycemia[ICD10: E11.65] Diagnosis: Glycosuria[ICD10: R81] Diagnosis: Urinary tract infection, site not specified[ICD10: N39.0] Belia REID [facility] CPT-4: 12181 03/30/2015 ([id number]) OFFICE/OUTPATIENT VISIT EST Diagnosis: Generalized abdominal pain[ICD10: R10.84] Diagnosis: Diarrhea, unspecified[ICD10: R19.7] Diagnosis: Urinary tract infection, site not specified[ICD10: N39.0] Diagnosis: Gastro-esophageal reflux disease without esophagitis[ICD10: K21.9] Belia REID [facility] CPT-4: 69435 02/03/2015 ([id number]) OFFICE/OUTPATIENT VISIT EST Diagnosis: Other specified noninflammatory disorders of vagina[ICD10: N89.8] Diagnosis: Follicular disorder, unspecified[ICD10: L73.9] Diagnosis: Functional dyspepsia[ICD10: K30] Diagnosis: FLU VACCINE[ICD10: Z23] Belia [facility] CPT-4: 17776 12/29/2014 ([id number]) OFFICE/OUTPATIENT VISIT EST 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] Diagnosis: RESTLESS LEGS SYNDROME[ICD9: 333.94] Diagnosis: MIGRAINE NOS/NOT INTRCBL[ICD9: 346.90] Belia REID [facility] CPT-4: 18744 09/02/2014 ([id number]) OFFICE/OUTPATIENT VISIT EST Diagnosis: Cervical radiculopathy[ICD9: 723.4] Diagnosis: Cervicalgia[ICD9: 723.1] Diagnosis: Degenerative disc disease, cervical[ICD9: 722.4] 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I[ICD9: 250.00] Belia REID [facility] CPT-4: 59465 04/01/2014 OFFICE/OUTPATIENT VISIT EST Diagnosis: Reactive airway disease[ICD9: 493.90] Belia REID [facility] CPT-4: 31512 03/16/2014 ([id number]) OFFICE/OUTPATIENT VISIT EST Diagnosis: BRONCHITIS, ACUTE[ICD9: 466.0] Diagnosis: Reactive airway disease[ICD9: 493.90] Belia REID [employer] [facility] CPT-4: 06499 03/09/2014 OFFICE/OUTPATIENT VISIT EST Diagnosis: BRONCHITIS, ACUTE[ICD9: 466.0] Diagnosis: WHEEZING[ICD9: 786.07] Huong Peguero [employer] [facility] CPT-4: 52017 03/03/2014 OFFICE/OUTPATIENT VISIT EST Diagnosis: BRONCHITIS, ACUTE[ICD9: 466.0] Diagnosis: WHEEZING[ICD9: 786.07] Huong Peguero [employer] [facility] CPT-4: 11328 03/01/2014 ([id number]) OFFICE/OUTPATIENT VISIT EST Diagnosis: GERD[ICD9: 530.81] Diagnosis: ARTHRALGIA-MULTIPLE SITES[ICD9: 719.49] Diagnosis: LUMB/LUMBOSAC DISC DEGEN[ICD9: 722.52] Diagnosis: - I - FIBROMYALGIA[ICD9: 729.1] Belia REID [employer] [facility] CPT-4: 75417 02/09/2014 ([id number]) OFFICE/OUTPATIENT VISIT EST Diagnosis: Peptic ulcer disease[ICD9: 533.90] Diagnosis: RESTLESS LEGS SYNDROME[ICD9: 333.94] Diagnosis: Neuropathy[ICD9: 355.9] Belia FREDERICK DO [facility] CPT-4: 26013 12/23/2013 ([id number]) OFFICE/OUTPATIENT VISIT EST Diagnosis: URINARY TRACT INFECTION[ICD9: 599.0] Belia REID DO [facility] CPT-4: 40621 10/30/2013 ([id number]) OFFICE/OUTPATIENT VISIT EST Diagnosis: Flank pain[ICD9: 789.00] Belia MARTINEZ [facility] CPT-4: 37212 10/21/2013 ([id number]) OFFICE/OUTPATIENT VISIT EST Diagnosis: INFLAMED SEBORR KERATOS[ICD9: 702.11] Diagnosis: Brachioradial pruritus[ICD9: 698.9] Diagnosis: ASTHMA NOS[ICD9: 493.90] Belia MARTINEZ [facility] CPT-4: 91572 10/05/2013 ([id number]) OFFICE/OUTPATIENT VISIT EST Diagnosis: HYPERTENSION[ICD9: 401.9] Diagnosis: - I - FIBROMYALGIA[ICD9: 729.1] Diagnosis: DIZZINESS/VERTIGO[ICD9: 780.4] Diagnosis: MIGRAINE NOS/NOT INTRCBL[ICD9: 346.90] Diagnosis: Diabetic peripheral neuropathy[ICD9: 250.60] Diagnosis: Flank pain[ICD9: 789.00] Belia MARTINEZ [facility] CPT-4: 51670 08/04/2013 ([id number]) OFFICE/OUTPATIENT VISIT EST Diagnosis: ALLERGIC RHINITIS[ICD9: 477.9] Belia REID DO [facility] CPT-4: 62857 07/13/2013 OFFICE/OUTPATIENT VISIT EST Diagnosis: URINARY TRACT INFECTION[ICD9: 599.0] Huong Osborne KRAIG REID DO [facility] CPT-4: 74322 07/03/2013 OFFICE/OUTPATIENT VISIT EST Diagnosis: HYPERTENSION[ICD9: 401.9] Diagnosis: URINARY TRACT INFECTION[ICD9: 599.0] Diagnosis: BACKACHE[ICD9: 724.5] Diagnosis: URINARY INCONTINENCE[ICD9: 788.30] Huong [place] CORNELLKIMI MARIE Yuridia REID [facility] CPT-4: 67373 05/27/2013 ([id number]) OFFICE/OUTPATIENT VISIT EST Diagnosis: Flank pain[ICD9: 789.00] Belia Yandelkatina BELIA BushraMayda KIESHA POOLE [facility] CPT-4: 25487 05/25/2013 ([id number]) OFFICE/OUTPATIENT VISIT EST Diagnosis: B-COMPLEX DEFIC NEC[ICD9: 266.2] Belia Humphriesisabellaannie CORNELLBELIA Yuridia REID [facility] CPT-4: 67143 05/04/2013 ([id number]) OFFICE/OUTPATIENT VISIT EST Diagnosis: ALLERGIC RHINITIS[ICD9: 477.9] Diagnosis: Vitamin B12 deficiency[ICD9: 266.2] Belia Yandelkatina CORNELLFelicita DONNA Yuridia [facility] CPT-4: 68822 04/17/2013 ([id number]) OFFICE/OUTPATIENT VISIT EST 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I[ICD9: 250.00] Diagnosis: URINARY TRACT INFECTION[ICD9: 599.0] Diagnosis: DIZZINESS/VERTIGO[ICD9: 780.4] Diagnosis: DIARRHEA[ICD9: 787.91] Belializ Reid BELIA BushraMayda RALF Peguero [facility] CPT-4: 81012 04/06/2013 ([id number]) OFFICE/OUTPATIENT VISIT EST Diagnosis: URINARY TRACT INFECTION[ICD9: 599.0] Diagnosis: URINARY RETENTION[ICD9: 788.20] Belia Yandelkatina BELIA BushraMayda ANUSHKA [facility] CPT-4: 05362 11/10/2012 ([id number]) OFFICE/OUTPATIENT VISIT EST Diagnosis: TACHYCARDIA[ICD9: 785.0] Diagnosis: SYNCOPE AND COLLAPSE[ICD9: 780.2] Diagnosis: CONSCIOUSNS ALTERAT NEC[ICD9: 780.09] Belia Yandelkatina CALVO BushraMayda ANUSHKA [facility] CPT-4: 86576 09/02/2012 OFFICE/OUTPATIENT VISIT EST Diagnosis: TACHYCARDIA[ICD9: 785.0] Diagnosis: SYNCOPE AND COLLAPSE[ICD9: 780.2] Belia REID DO [facility] CPT-4: 04122 08/04/2012 ([id number]) OFFICE/OUTPATIENT VISIT EST Diagnosis: Loss of consciousness[ICD9: 780.09] Diagnosis: Tachycardia[ICD9: 785.0] Diagnosis: MALAISE AND FATIGUE[ICD9: 780.79] Belia REID DO [facility] CPT-4: 26161 07/21/2012 ([id number]) OFFICE/OUTPATIENT VISIT EST Diagnosis: BRONCHITIS, ACUTE[ICD9: 466.0] Diagnosis: ASTHMA NOS[ICD9: 493.90] Belia POOLE [facility] CPT-4: 11083 07/02/2012 ([id number]) OFFICE/OUTPATIENT VISIT EST Diagnosis: CEPHALGIA[ICD9: 784.0] Belia Peguero [facility] CPT-4: 20619 06/25/2012 ([id number]) OFFICE/OUTPATIENT VISIT EST Diagnosis: GERD[ICD9: 530.81] Diagnosis: DIARRHEA[ICD9: 787.91] Diagnosis: URINARY TRACT INFECTION[ICD9: 599.0] Diagnosis: ASTHMA NOS[ICD9: 493.90] Diagnosis: ALLERGIC RHINITIS[ICD9: 477.9] Belia REID [facility] CPT-4: 92785 06/24/2012 ([id number]) OFFICE/OUTPATIENT VISIT EST Diagnosis: MIGRAINE NOS/NOT INTRCBL[ICD9: 346.90] Diagnosis: TREMOR NEC[ICD9: 333.1] Diagnosis: CHRONIC PAIN SYNDROME[ICD9: 338.4] Belia BASS MARIE Yuridia REID [employer] [facility] CPT-4: 41963 05/20/2012 ([id number]) OFFICE/OUTPATIENT VISIT EST Diagnosis: DIZZINESS/VERTIGO[ICD9: 780.4] Diagnosis: PALPITATIONS[ICD9: 785.1] Diagnosis: TREMOR NEC[ICD9: 333.1] Diagnosis: ANXIETY STATE NOS[ICD9: 300.00] Diagnosis: POSTTRAUMATIC STRESS DISORDER[ICD9: 309.81] Belia CORNELLLINE Yuridia REID [employer] [facility] CPT-4: 15456 05/08/2012 ([id number]) OFFICE/OUTPATIENT VISIT EST Diagnosis: MIGRAINE NOS/NOT INTRCBL[ICD9: 346.90] Diagnosis: FIBROMYALGIA[ICD9: 729.1] Diagnosis: SYNCOPE AND COLLAPSE[ICD9: 780.2] Diagnosis: Diabetic peripheral neuropathy[ICD9: 250.60] Belia TomlinsonMayda LUIS [employer] CPT-4: 31515 04/22/2012 OFFICE/OUTPATIENT VISIT EST Diagnosis: ROTATOR CUFF DIS NEC[ICD9: 726.19] Diagnosis: JOINT PAIN-SHLDER[ICD9: 719.41] Diagnosis: DYSPEPSIA[ICD9: 536.8] Belia CORNELLLINE BushraMayda RALF [employer] CPT-4: 20047 02/13/2012 ([id number]) OFFICE/OUTPATIENT VISIT EST Diagnosis: MIGRAINE NOS/NOT INTRCBL[ICD9: 346.90] Diagnosis: GERD[ICD9: 530.81] Diagnosis: DYSPEPSIA[ICD9: 536.8] Belia CORNELLLINE BushraMayda RALF [employer] CPT-4: 40606 01/28/2012 OFFICE/OUTPATIENT VISIT EST Diagnosis: CEPHALGIA[ICD9: 784.0] Diagnosis: MIGRAINE NOS/NOT INTRCBL[ICD9: 346.90] Diagnosis: GERD[ICD9: 530.81] Diagnosis: INSOMNIA NOS[ICD9: 780.52] Belia Yandelisabellaannie HSUBELIA BushraMayda RAND DAILEYER [employer] CPT-4: 58320 12/26/2011 ([id number]) OFFICE/OUTPATIENT VISIT EST Diagnosis: CEPHALGIA[ICD9: 784.0] Diagnosis: MIGRAINE NOS/NOT INTRCBL[ICD9: 346.90] Diagnosis: MALAISE AND FATIGUE[ICD9: 780.79] Diagnosis: FIBROMYALGIA[ICD9: 729.1] Diagnosis: ALLERGIC RHINITIS[ICD9: 477.9] Belia Anushka BELIA Bushra Mayda LUIS [employer] CPT-4: 90657 11/14/2011 ([id number]) OFFICE/OUTPATIENT VISIT EST Diagnosis: MALAISE AND FATIGUE[ICD9: 780.79] Diagnosis: MUSCLE WEAKNESS-GENERAL[ICD9: 728.87] Diagnosis: MIGRAINE NOS/NOT INTRCBL[ICD9: 346.90] Diagnosis: JOINT PAIN-SHLDER[ICD9: 719.41] Belia REID [facility] CPT-4: 78226 09/12/2011 ([id number]) OFFICE/OUTPATIENT VISIT EST Diagnosis: CONCUSSION[ICD9: 850.9] Diagnosis: Ataxia[ICD9: 781.3] Diagnosis: DIZZINESS/VERTIGO[ICD9: 780.4] Belia REID [facility] CPT-4: 67238 08/15/2011 ([id number]) OFFICE/OUTPATIENT VISIT EST Diagnosis: THROMBOPHLEBITIS[ICD9: 451.9] Diagnosis: Subacromial bursitis[ICD9: 726.19] Diagnosis: ALLERGIC RHINITIS[ICD9: 477.9] Diagnosis: Lipoma[ICD9: 214.9] [facility]: 88922 08/09/2011 ([id number]) OFFICE/OUTPATIENT VISIT EST Diagnosis: THROMBOPHLEBITIS[ICD9: 451.9] Diagnosis: Arm pain[ICD9: 729.5] Diagnosis: Clostridium difficile colitis[ICD9: 008.45] Diagnosis: URINARY TRACT INFECTION[ICD9: 599.0] [facility] CPT-[facility]: 05756 07/03/2011 ([id number]) OFFICE/OUTPATIENT VISIT EST Diagnosis: ARTHRALGIA-MULTIPLE SITES[ICD9: 719.49] Diagnosis: Muscle cramp[ICD9: 729.82] Diagnosis: INSOMNIA NOS[ICD9: 780.52] [facility]: 61889 06/04/2011 OFFICE/OUTPATIENT VISIT EST Diagnosis: Headache[ICD9: 784.0] Diagnosis: Allergic rhinitis[ICD9: 477.9] Belia [facility] CPT-[facility]: 60162 05/03/2011 OFFICE/OUTPATIENT VISIT EST Diagnosis: LUMB/LUMBOSAC DISC DEGEN[ICD9: 722.52] Diagnosis: MIGRAINE NOS/NOT INTRCBL[ICD9: 346.90] Diagnosis: CHRONIC PAIN SYNDROME[ICD9: 338.4] Diagnosis: RESTLESS LEGS SYNDROME[ICD9: 333.94] Belia REID [facility] CPT-4: 28417 04/05/2011 OFFICE/OUTPATIENT VISIT EST Diagnosis: MIGRAINE NOS/NOT INTRCBL[ICD9: 346.90] Diagnosis: GERD[ICD9: 530.81] Belia REID [facility] CPT-4: 10562 03/08/2011 OFFICE/OUTPATIENT VISIT EST Diagnosis: URINARY TRACT INFECTION[ICD9: 599.0] Diagnosis: Vertigo[ICD9: 780.4] Diagnosis: GERD[ICD9: 530.81] Belia [facility] CPT-4: 51357 01/24/2011 OFFICE/OUTPATIENT VISIT EST Diagnosis: Hypotension[ICD9: 458.9] Diagnosis: Syncopal episodes[ICD9: 780.2] Diagnosis: MIGRAINE NOS/NOT INTRCBL[ICD9: 346.90] Diagnosis: MALAISE AND FATIGUE[ICD9: 780.79] Belia [facility] CPT-4: 43065 01/02/2011 OFFICE/OUTPATIENT VISIT EST Diagnosis: Tinea cruris[ICD9: 110.3] Diagnosis: Intertrigo[ICD9: 695.89] Diagnosis: MIGRAINE NOS/NOT INTRCBL[ICD9: 346.90] Belia HSUQ JOHN PAUL [facility] CPT-4: 13306 12/07/2010 OFFICE/OUTPATIENT VISIT EST Diagnosis: PALPITATIONS[ICD9: 785.1] Diagnosis: ANXIETY STATE NOS[ICD9: 300.00] Belia [facility] CPT-4: 37748 11/16/2010 OFFICE/OUTPATIENT VISIT EST Diagnosis: URINARY TRACT INFECTION[ICD9: 599.0] Diagnosis: MIGRAINE NOS/NOT INTRCBL[ICD9: 346.90] Iraida CASILLAS JOHN PAUL [facility] CPT-4: 84618 11/02/2010 OFFICE/OUTPATIENT VISIT EST Diagnosis: ALLERGIC RHINITIS[ICD9: 477.9] Diagnosis: ANXIETY STATE NOS[ICD9: 300.00] Belia [facility] CPT-4: 91872 10/18/2010 OFFICE/OUTPATIENT VISIT EST Belia [facility] CPT- 4: 17284 09/19/2010 OFFICE/OUTPATIENT VISIT EST Belia [facility] CPT- 4: 14704 09/06/2010 ([id number]) OFFICE/OUTPATIENT VISIT EST Belia CASILLAS [facility] CPT-4: 47480 08/10/2010 ([id number]) OFFICE/OUTPATIENT VISIT EST Belia CASILLAS [facility] CPT-4: 49785 05/11/2010 ([id number]) OFFICE/OUTPATIENT VISIT, EST Belia [facility] CPT-4: 37380 04/06/2010 ([id number]) OFFICE/OUTPATIENT VISIT, EST Belia [facility]SU [facility] CPT-4: 84805 02/09/2010 ([id number]) OFFICE/OUTPATIENT VISIT, EST Belia [facility] CPT-4: 97318 01/05/2010 ([id number]) OFFICE/OUTPATIENT VISIT, EST Belia [facility] CPT-4: 28686 12/07/2009 ([id number]) OFFICE/OUTPATIENT VISIT, EST Belia [facility] CPT-4: 90533 11/08/2009 ([id number]) OFFICE/OUTPATIENT VISIT, EST Beliahanna [facility] CPT-4: 00661 10/24/2009 ([id number]) OFFICE/OUTPATIENT VISIT, EST Beliahanna [facility] CPT-4: 91555 07/25/2009 ([id number]) OFFICE/OUTPATIENT VISIT, EST [facility] CPT-4: 56783 05/26/2009 Plan of Care Planned Activity Notes [...] new home sleep study on patient through [facility] to assess severity of symptoms, patient does wear her oxygen at night though. educated on importance of wearing oxygen at all times, even when in public. ICD-9 : 786.09 ICD-10 : R06.89 08/10/2019 Visit Diagnosis Plan: Left leg swelling Discussion: daren rickey has had ultrasound of leg and ct [...] : R10.2 08/04/2019 Appointment: Pattie Sotomayor [address] [place], [place] [id number] ACUTE ILLNESS 08/04/2019 Visit Diagnosis Plan: Inspiratory stridor Discussion: Continue oxygen via NC at 2 L Continue ativan at QID Follow Up: 4 weeks ICD-9 : 786.1 ICD-10 : R06.1 07/06/2019 Visit Diagnosis Plan: Diarrhea Discussion: Restart Col estid at once daily ICD-9 : 787.91 ICD-10 : R19.7 07/06/2019 Appointment: Belia Reid WPtel: [address] [place] [address] TELEMEDICINE 07/06/2019 Visit Diagnosis Plan: Left leg [...] : R06.00 06/24/2019 Appointment: Belia Reid WPtel: [address] [place] [address] TELEMEDICINE 06/24/2019 Visit Diagnosis Plan: Colitis Discussion: Levaquin/[place] Diet ICD-9 : 558.9 ICD-10 : K52.9 06/16/2019 Visit Diagnosis Plan: Acute bronchitis Discussion: Cov er with levaquin Increase SVNs with albuterol to QID Has oxygen using q HS routinely and prn To ER if oxygen levels drop or worsening respiratory symptoms ICD-9 : 466.0 ICD-10 : J20.9 06/16/2019 Appointment: Belia Reid WPtel: [facility] [address] TELEMEDICINE 06/16/2019 Patient Education: Levaquin- [employer] Coupon [id number] [id number] [email or web address] Completed 06/16/2019 Visit Diagnosis Plan: Diarrhea Discussion: Vancomycin for 10 days and notify if not improving or worsening BLAND diet Hydrate ICD-9 : 787.91 ICD-10 : R19.7 06/08/2019 Appointment: Belia Reid WPtel: [address] [place] [address] TELEMEDICINE 06/08/2019 Visit Diagnosis Plan: Colitis Discussion: Flagyl plus cipro to cover for both colitis and UTI Notify or to ER if worsening ICD-9 : 558.9 ICD-10 : K52.9 05/26/2019 Visit Diagnosis Plan: Acute febrile illness Discussion : Notify if worsens ICD-9 : 780.60 ICD-10 : R50.9 05/26/2019 Appointment: Belia Reid WPtel: [address] [place] [address] TELEMEDICINE 05/26/2019 Appointment: Pattie Sotomayor [address] RESCHEDULED 05/18/2019 Visit Diagnosis Plan: Chronic obstructive pulmonary di sease, unspecified Discussion: Recommend pulmonary rehab Patient states she never went to pulmonary rehab due to cost as well as transportation issues Finish trelagy Stop singulair Decrease hydroxyzine to 25mg po q HS Fwup [address] scan of Chest results discussed ICD-9 : 496 ICD-10 : J44.9 05/13/2019 Appointment: Belia Reid WPtel: [address] [place] [address] Hospital Follow Up 05/13/2019 Visit Diagnosis Plan: COUGH Discussion: Check CT scan of chest ICD-9 : 786.2 ICD-10 : R05 05/06/2019 Visit Diagnosis Plan: Stridor Discussion: Add Trelagy 1 p daily Add Singulair May need to see new metal bed assembler ICD-9 : 786.1 ICD-10 : R06.1 05/06/2019 Appointment: Belia Reid WPtel: [address] [place], [place] [id number] FOLLOW UP 05/06/2019 Patient Education: Singulair- OptimizeRX Coupon [id number] https://www.Project 2020/samplemd/resources/getResource/61/0156532x-i83d-32t7-bf Completed 05/06/2019 Appointment: Belia Reid WPtel: [address] [place], [place] [phone] [place] RESCHEDULED 04/30/2019 Visit Diagnosis Plan: Stridor [...] : G25.5 04/29/2019 Appointment: Belia Reid WPtel: [address] [place], [place] [id number] Hospital Follow Up 04/29/2019 Patient Education: Valium- OptimizeRX Coupon [id number] https://www.Sendah [employer].Livescribe/samplemd/resources/getResource/61/t43385ms-300i-4t28-0e Completed 04/29/2019 Visit Diagnosis Plan: Flank pain [...] ICD-10 : R63.5 04/16/2019 Appointment: Pattie Sotomayor [address] [place], [place] [id number] ACUTE ILLNESS 04/16/2019 Patient Education: cyclobenzaprine- OptimizeRX Coupon [id number] https://www.[employer].com/samplemd/resources/getResource/61/bv39d0l3-6255-0215-q5 Completed 04/16/2019 Visit Diagnosis Plan: Migraine, unspecif ied, not intractable, without status migrainosus Discussion: Increase gabapentin to 600mg po BID ICD-9 : 346.90 ICD-10 : G43.909 04/08/2019 Visit Diagnosis Plan: Generalized pruritus Discussion: Hydroxyzine 25mg po TID for itching and anxiety ICD-9 : 698.9 ICD-10 : L29.9 04/08/2019 Appointment: Belia Reid WPtel: [address] [place] [address] ACUTE ILLNESS 04/08/2019 Visit Diagnosis Plan: Cervicalgia [...] M75.52 01/22/2019 Appointment: Belia Reid WPtel: [address] [place] [address] Hospital Follow Up 01/22/2019 Visit Diagnosis Plan: Abdominal pain Discussion: urine culture sent to assess for any infection. rocephin given in office to cover for pyelonephritis. instructed to push fluids. call office with any new or worsening symptoms. ICD-9 : 789.00 ICD-10 : R10.9 01/07/2019 Appointment: Pattie Sotomayor [address] [place] [address] ACUTE ILLNESS 01/07/2019 Visit Diagnosis Plan: Low back pain Discussion: Stat C T of abdomen/pelvis now ICD-9 : 724.2 ICD-10 : M54.5 12/24/2018 Appointment: Belia Reid WPtel: [address] [place] [address] FOLLOW UP 12/24/2018 Visit Diagnosis Plan: Migraine, [...] : M79.7 11/20/2018 Appointment: Belia Reid WPtel: [facility] [place] [id number] ACUTE ILLNESS 11/20/2018 Patient Education: baclofen- OptimizeRX Coupon [id number] https://www.[employer].Livescribe/samplemd/resources/getResource/61/2n7524i2-bu3f-95ku-46 Completed 11/20/2018 Visit Diagnosis Plan: Migraine, unspecif ied, intractable, without status migrainosus Discussion: toradol/phenergan given in o ffice (60 mg toradol, 12.5 mg phenergan). instructed to call if no improvement or worsening. instructed to follow up with microsoft bi architect since headaches are occurring more frequently to make sure vision is not the cause. ICD-9 : 346.91 ICD-10 : G43.919 11/04/2018 Visit Diagnosis Plan: Acute sinusitis, unspecified Dis cussion: zithromax prescribed to cover for sinus infection due to length of symptoms and clinincal s/s. ICD-9 : 461.9 ICD-10 : J01.90 11/04/2018 Appointment: Pattie Sotomayor [address] [place], [place] [id number] ACUTE ILLNESS 11/04/2018 Appointment: Belia Reid WPtel: [facility] [place] [phone] US CANCELED 09/24/2018 Visit Diagnosis Plan: Type 2 diabetes me llitus with diabetic neuropathy, unspecified Discussion: Retry gabapentin 300mg po q HS ICD-9 : 250.60 ICD-10 : E11.40 09/18/2018 Visit Diagnosis Plan: Vitamin D deficiency, unspecifie d Discussion: Increase Vitamin D3 to 10,000 u daily ICD-9 : 268.9 ICD-10 : E55.9 09/18/2018 Visit Diagnosis Plan: Encounter for [place] adult medical examination without abnormal findings Discussion: [...] : I10 09/18/2018 Appointment: Belia Reid WPtel: [facility] Annual Well Visit 09/18/2018 Patient Education: gabapentin- OptimizeRX Coupon [phone] https://www.Project 2020/samplemd/resources/getResource/61/3p26vy82-2lf8-3hmb-i7 Completed 09/18/2018 Visit Diagnosis Plan: Pain in [...] : M54.89 09/08/2018 Appointment: Pattie Sotomayor [address] [place], [place] [address] ACUTE ILLNESS 09/08/2018 Patient Education: prednisone- OptimizeRX Coupon [phone] https://www.[employer].Livescribe/samplemd/resources/getResource/61/6b4en68i-7065-77i9-gz Completed 09/08/2018 Visit Diagnosis Plan: Pruritus, unspecified [...] E10.9 08/20/2018 Appointment: [facility] [facility] [facility] 08/20/2018 Patient Education: Lexapro- OptimizeRX Coupon [id number] Completed 08/20/2018 Patient Education: hydroxyzine HCl- OptimizeRX Coupon [id number] Completed 08/20/2018 Care Plan: MAMMOGRAM SCREENING [facility] : 2 6347-5 Pending 08/20/2018 Visit Diagnosis Plan: Paroxysmal atrial fibrillation D iscussion: Discuss eliquis need with cardiology at [facility] due to cost ICD-9 : 427.31 ICD-10 : I48.0 06/19/2018 Visit Diagnosis Plan: Hypotension due to drugs Discuss ion: Discussed decreasing cardizem dose due to low BP and edema but sees cardiology next week Follow Up: 1 months ICD-9 : 458.8 ICD-10 : I95.2 06/19/2018 Appointment: Bel[facility] Reid [facility]Ptel[facility] [address] [facility] [facility] 06/19/2018 Visit Diagnosis Plan: Essential [...] : R61 06/09/2018 Appointment: Belia Reid WPtel: [address] [place] [address] FOLLOW UP 06/09/2018 Care Plan: CHEST X-RAY 2VW FRONTAL&LATL LOINC : 07802-6 Pending 05/26/2018 Visit Diagnosis Plan: Supraventricular tachycardia [...] : R53.1 05/21/2018 Appointment: Belia Reid WPtel: [address] [place] [address] Hospital Follow Up 05/21/2018 Visit Diagnosis Plan: Cervical disc diso rder with radiculopathy, unspecified cervical region Discussion: Scheduled for surgery on 06/02 10/[address] Faulkner ICD-9 : 722.0 ICD-10 : M50.10 04/16/2018 Appointment: Belia Reid WPtel: [address] [place] [address] Hospital Follow Up 04/16/2018 Visit Diagnosis Plan: [...] : G43.919 04/01/2018 Appointment: Pattie Sotomayor [address] [place] [address] ACUTE ILLNESS 04/01/2018 Appointment: Belia Reid WPtel: [address] [place] [address] 03/17/2018 Visit Diagnosis Plan: Chronic obstructiv e [...] E11.65 03/06/2018 Appointment: Belia Reid WPtel: [facility] [address] Hospital Follow Up 03/06/2018 Visit Diagnosis Plan: Cervicalgia Discussion: spoke wi th dr. reid about patient. increased gabapentin to bid and started on celebrex bid. tramadrol rx written out to take prn. keep scheduled appt next week for myelogram. ICD-9 : 723.1 ICD-10 : M54.2 02/05/2018 Appointment: Pattie Sotomayor [address] [place] [address] ACUTE ILLNESS 02/05/2018 Care Plan: X-RAY EXAM NECK SPINE 4/5VWS cervical LOINC : 55086-3 Pending 01/21/2018 Visit Diagnosis Plan: Candidiasis of [...] : M54.2 01/20/2018 Appointment: Pattie Sotomayor [address] [place] [address] ACUTE ILLNESS 01/20/2018 Visit Diagnosis Plan: Pain in thoracic spine Discussio n: Proceed with CT scan of thoracic spine Will likely need PT ICD-9 : 724.1 ICD-10 : M54.6 12/25/2017 Appointment: Belia Reid WPtel: [address] [place] [address] FOLLOW UP 12/25/2017 Care Plan: CT THORAX W/O DYE LOINC : 473 66-0 Pending 12/25/2017 Visit Diagnosis Plan: Pain in thoracic spine Discussio n: Stretches Alternated heat/ice Topical aspercreme with lidocaine Flexeril Recheck 1 week Flu and Pneumovax given ICD-9 : 724.1 ICD-10 : M54.6 12/17/2017 Appointment: Belia Reid WPtel: [address] [place] [address] ACUTE ILLNESS 12/17/2017 Patient Education: Patient Medication [...] : J44.1 10/30/2017 Appointment: Belia Reid WPtel: [address] [place] [address] FOLLOW UP 10/30/2017 Patient Education: Patient Medication Summary Completed 10/30/2017 Visit Diagnosis Plan: Chronic obstructiv e pulmonary disease with acute lower respiratory infection Discussion: Continue SVNs with albuterol q4hrs Add Trelagy 1 inhalation daily Finish steroids Increase water intake Follow Up: 1 weeks ICD-9 : 496 ICD-10 : J44.0 10/23/2017 Appointment: Belia Reid WPtel: [address] [place] [address] WORK IN 10/23/2017 Patient Education: Patient Medication Summary Completed 10/23/2017 Appointment: Belia Reid WPtel: [address] [place] [address] NO SHOW 10/16/2017 Visit Diagnosis Plan: Confusional [...] : E11.65 09/17/2017 Appointment: Belia Reid WPtel: [address] [place] [address] Annual Well Visit 09/17/2017 Patient Education: Patient Medication Summary Completed 09/17/2017 Appointment: Belia Reid WPtel: [address] [place], [place] [phone] [place] INJECTION 08/26/2017 Patient Education: Patient Medication Summary Completed 08/26/2017 Appointment: Belia Reid WPtel: [address] [place], [place] [phone] [place] CANCELED 07/31/2017 Visit Diagnosis Plan: Encounter [...] : J20.9 07/19/2017 Appointment: Pattie Sotomayor [address] [place], [place] [address] ACUTE ILLNESS 07/19/2017 Patient Education: Patient Medication Summary Completed 07/19/2017 Care Plan: MAMMOGRAM SCREENING LOINC : 2 6347-5 Pending 07/19/2017 Patient Education: Patient Medication Summary Completed 06/05/2017 Care Plan: LIPID PANEL LOINC : 42354-7 Pending 06/05/2017 Care Plan: A1C HPLC LOINC : 97574-1 Pending 06/05/2017 Visit Diagnosis Plan: Rash and [...] : R21 05/29/2017 Appointment: Pattie Sotomayor [address] [place], [place] [address] FOLLOW UP 05/29/2017 Patient Education: Patient Medication Summary Completed 05/29/2017 Visit Diagnosis Plan: Tinea corporis Discussion: Diflu can and topical nystatin Follow Up: 2 weeks ICD-9 : 110.5 ICD-10 : B35.4 05/07/2017 Visit Diagnosis Plan: Diarrhea, unspecified Discussion : Diflucan Cholestyramine Recheck 2weeks ICD-9 : 787.91 ICD-10 : R19.7 05/07/2017 Appointment: Bel[facility] Reid [facility]Ptel[facility] [facility] [facility] 05/07/2017 Patient Education: Patient Medication Summary Completed 05/07/2017 Appointment: Belia Reid WPtel: [address] [place], [place] [phone] [place] RESCHEDULED 04/30/2017 Visit Diagnosis Plan: Chronic obstructiv e pulmonary disease with (acute) exacerbation Discussion: Finish prednisone Continue S VNS with albuterol ICD-9 : 491.21 ICD-10 : J44.1 03/18/2017 Visit Diagnosis Plan: Stridor Discussion: Increase Ati van 0.5mg po to TID routinely for next week then can go back to prn ICD-9 : 786.1 ICD-10 : R06.1 03/18/2017 Appointment: Belia Reid WPtel: [address] [place], [place] [phone] ER Follow UP 03/18/2017 Patient Education: Patient [...] E11.65 02/27/2017 Appointment: Belia Reid WPtel: [address] [place], [place] [phone] [place] FOLLOW UP 02/27/2017 Patient Education: Patient [...] : E11.65 02/22/2017 Appointment: Pattie Sotomayor [address] [place], [place] [id number] ACUTE ILLNESS 02/22/2017 Patient Education: [...] Plan: Pneumonia, unspecified organism Discussion: Maria Antonia levquin then do doxycycline for 2 weeks then will plan on repeat CT scan of lungs in 3mos ICD-9 : 486 ICD-10 : J18.9 01/23/2017 Appointment: Belia Reid WPtel: [address] [place] [address] ER Follow UP 01/23/2017 Patient Education: Patient Medication Summary Completed 01/23/2017 Appointment: Pattie Sotomayor [address] [place] [address] CANCELED 01/17/2017 Appointment: Pattie Sotomayor [address] [place] [address] Annual Well Visit 01/14/2017 Visit Diagnosis Plan: Type 2 diabetes mellitus with hy perglycemia Discussion: Check CMP, HbA1C Flu shot and Prevnar 13 given Follow Up: 3 months ICD-9 : 250.02 ICD-10 : E11.65 12/20/2016 Visit Diagnosis Plan: Localized edema Discussion: Low Na diet Compression socks/Elevate feet ICD-9 : 782.3 ICD-10 : R60.0 12/20/2016 Appointment: Belia Reid WPtel: [facility] [place] [address] US FOLLOW UP 12/20/2016 Patient Education: Patient [...] Ferreira WPtel: [address] [facility] ACUTE ILLNESS 10/08/2016 Patient [...] 09/19/2016 Appointment: Belia Reid WPtel: [facility]8 [facility] 09/18 confirmed`sl FOLLOW UP 09/19/2016 Patient [...] : R10.84 08/20/2016 Appointment: Belia Reid WPtel: [address] [facility] 08/16 confirmed~sl FOLLOW UP 08/20/2016 Patient [...] : J44.9 06/19/2016 Appointment: Belia Reid WPtel: [address] [place], [place] [phone] 06/18 confirmed ~ Hospital Follow Up 06/19/2016 [...] : Z87.440 06/04/2016 Appointment: Belia Reid WPtel: [address] [place], [place] [phone] 06/01 confirmed~ FOLLOW UP 06/04/2016 Patient Education: [...] : R06.1 05/02/2016 Appointment: Belia Reid WPtel: [address] [place], [place] [phone] 05/01 confirmed ~ Hospital Follow Up 05/02/2016 [...] : N39.0 04/03/2016 Appointment: Belia Reid WPtel: [address] [place] [address] 04/02 confirmed~ Hospital Follow Up 04/03/2016 Patient Education: Patient Medication Summary Completed 04/03/2016 Visit Plan: Lungs are clear Her symptoms and exam are all upper airway restriction/constriction Can try supportive care Rx as above Follow up PRN 02/29/2016 Appointment: Lidia Hwang [address] [place] [address] ACUTE ILLNESS 02/29/2016 Patient Education: Patient Medication Summary Completed 02/29/2016 Visit Plan: Toradol/Phenergan today for Migraine Change to Clindamycin to cover lactobacillus for UTI Cover with flagyl due to hx of C. Diff 02/02/2016 Appointment: Belia Reid WPtel: [address] [place] [address] 01/31 confirmed`sl ACUTE ILLNESS 02/02/2016 Patient Education: Patient Medication Summary Completed 02/02/2016 Visit Plan: Increase neurontin to 300mg q AM and 600mg q PM Discussed neurology re-evaluation Flu shot given Need to check on Pneumonia shot Rx written out for albuterol 01/05/2016 Appointment: Belia Reid WPtel: [address] [place] [address] 01/03 confirmed ~sl Annual Well Visit 01/05/2016 Patient Education: Patient Medication Summary Completed 01/05/2016 Visit Plan: Cipro Culture urine hydrate Flexeril refilled Alternate heat and ice for back Increase gabapentin to 300mg po BID Notify if worsens 12/05/2015 Appointment: Belia Reid WPtel: [address] [place], [place] [phone] 11/30 confirmed~sl ACUTE ILLNESS 12/05/2015 Patient Education: Patient Medication Summary Completed 12/05/2015 Patient Education: Patient Medication Summary Completed 10/27/2015 Care Plan: COMPREHEN METABOLIC [place] : 09555-8 Pending 10/27/2015 Care Plan: A1C HPLC LOINC : 65094-5 Pending 10/27/2015 Visit Plan: Lungs are CTA today and is f eeling improved overall Finish meds as ordered Continue inhalers and neb treatments Discussed migraine treatment options She does not feel she needs anything additional added today Refill of Januvia sent since no samples are available today 10/26/2015 Appointment: Lidia Hwang [address] [place] [address] Hospital Follow Up 10/26/2015 Appointment: Lidia Hwang [address] [place] [address] CANCELED 10/26/2015 Patient Education: Patient Medication Summary Completed 10/26/2015 Patient Education: Januvia - 18+ - KENNETH - No [place] Completed 10/26/2015 Visit Plan: Office dip still abnormal Cu lture pending Switch to cipro - stop macrobid Push fluids - avoid caffeine Will call with culture results when available Follow up if worsening 10/05/2015 Appointment: Lidia Hwang [address] [place] [address] ER Follow UP 10/05/2015 Patient Education: Patient Medication Summary Completed 10/05/2015 Visit Plan: Proceed with PT for document ation of ROM and strength of all extremities Proceed with Power Mobility Device Trial of neurontin 300mg q HS--lyrica helped but patient unable to afford Recheck 1month 09/15/2015 Appointment: Belia Reid WPtel: [phone] [facility] 09/13 confirmed~sl SPECIAL 09/15/2015 Patient Education: Patient Medication Summary Completed 09/15/2015 Visit Plan: Fille out Loan Discharge Pap erwork for total and permanent disability 08/25/2015 Patient Education: Patient Medication Summary Completed 08/25/2015 Visit Plan: Discussed with Dr Anushka Haywood at CT of head Will get last date of carotid doppler from her professor of communication and writing and update if needed 08/24/2015 Appointment: Lidia Hwang [address] [place], [place] [id number] 08/22 confirmed~sl ACUTE ILLNESS 08/24/2015 Patient Education: Patient Medication Summary Completed 08/24/2015 Patient Education: Patient Medication Summary Completed 08/24/2015 Care Plan: US EXAM OF HEAD AND NECK carotid Ultrasound LOIN C : 97113-2 Pending 08/24/2015 Visit Plan: Long discussion about diet A ccuchecks daily Check HbA1C, CMP Change requip to mirapex 07/05/2015 Appointment: Belia Reid WPtel: [address] [place] [address] 07/03 confirmed ~sl FOLLOW UP 07/05/2015 Patient Education: Patient Medication Summary Completed 07/05/2015 Visit Plan: Add Breo ellipta 100 1 p BID Continue SVNs with duoneb QID 06/06/2015 Appointment: Belia Reid WPtel: [address] [place] [address] Patient is calling for a ride, then retu rning our call.-sp 06/01 called and patient stated she will know saturday if she can get a ride~sl 06/05 [facility] Hospital Follow Up 06/06/2015 Patient Education: [...] not improving 05/23/2015 Appointment: Huong Osborne WPtel: [facility]3 [facility] ACUTE ILLNESS 05/23/2015 Appointment: Lidia Hwang [address] [facility] ER Follow UP 05/23/2015 Patient Education: Patient Medication Summary Completed 05/23/2015 Visit Plan: Check pancreatic enzymes and US of pancreas as patient can't understand why she has diabetes since has no family history Discussed weight, diet, exercise all play an important role in diabetes and are risk factors as well Continue Januvia and accuchecks daily 05/05/2015 Appointment: Belia Reid WPtel: [address] [place], [place] [phone] US FOLLOW UP 05/05/2015 Patient Education: Patient Medication Summary Completed 05/05/2015 Care Plan: US EXAM ABDOM COMPLETE LOINC : 27909-0 Ordered 05/05/2015 Visit Plan: Start Januvia 100mg daily [place] with diflucan and culture urine Accuchecks daily alternating times Recheck 6weeks 03/30/2015 Appointment: Belia Reid WPtel: [address] [place], [place] [address] 03/29 confirmed~lb FOLLOW UP 03/30/2015 Patient Education: Patient Medication Summary Completed 03/30/2015 Appointment: Belia Reid WPtel: [address] [place] [address] 03/01 needs reschedule due to payment and insurance ~sl FOLLOW UP 03/02/2015 Visit Plan: Patient was just in ER last night so has not filled scripts yet Start Carafate and Flagyl and Cipro Add Hyophen 1 po BID Recheck 1mo 02/03/2015 Appointment: Belia Reid WPtel: [address] [place], [place] [phone] [place] 02/02lm ~sl...02/03/15 appt confirmed cn ACUTE I LLNESS 02/03/2015 Patient Education: Patient Medication Summary Completed 02/03/2015 Visit Plan: Warm soaks to vaginal area K elex and Diflucan and observe Zofran to use prn 12/29/2014 Appointment: Belia Reid WPtel: [address] [place], [place] [phone] 12/28 Confirmed ~sl ACUTE ILLNESS 12/29/2014 Patient Education: Patient Medication Summary Completed 12/29/2014 Appointment: Huong Osborne WPtel: [address] [place], [place] [phone] FOLLOW UP 09/24/2014 Appointment: Belia Reid WPtel: [address] [place], [place] [phone] 09/15 confirmed -mf FOLLOW UP 09/16/2014 Visit Plan: Increase requip to 2mg po BI D Increase lyrica to 225mg total a day by adding an extra 75mg in AM Recheck in 2weeks Continue to patch left eye while sleeping 09/02/2014 Appointment: Belia Reid WPtel: [address] [place], [place] [address] 09/01 appt confirmed Hospital Follow Up 09/02 Patient Education: Patient Medication Summary Completed 09/02/2014 Visit Plan: To Yessenia dominguez observat ion to R/O CVA 08/25/2014 Appointment: Huong Osborne WPtel: [address] [place], [place] [phone] ACUTE ILLNESS 08/25/2014 Patient Education: Patient Medication Summary Completed 08/25/2014 Referral: Aaron Jonas WPtel: [facility] [address] [place] location Initiated 04/26/2014 Referral: Brian Srinivasan WPtel: [facility] [place] [place] Ref[facility] Initiated 04/20/2014 Appointment: Belia Reid WPtel: [address] [place], [place] [phone] ER Follow UP 04/01/2014 Patient Education: Patient Medication Summary Completed 04/01/2014 Care Plan: MYELOGRAPHY NECK SPINE LOINC : 22679-2 Ordered 04/01/2014 Visit Plan: Continue Symbicort 160 at 2p BID Continue SVNs with duoneb at least QID Finish Levaquin Recheck 1mo on lyrica 03/16/2014 Appointment: Belia Reid WPtel: [address] [place], [place] [phone] 03/15 voicemail FOLLOW UP 03/16/2014 Patient Education: Patient Medication Summary Completed 03/16/2014 Visit Plan: Restart SVNs with duoneb QID Repeat prednisone Levaquin Continue symbicort Keep lyrica at same dose Recheck 1week 03/09/2014 Appointment: Belia Reid WPtel: [address] [place], [place] [phone] FOLLOW UP 03/09/2014 Patient Education: Patient Medication Summary Completed 03/09/2014 Appointment: Belia Reid WPtel: [address] [place], [place] [phone] 03/03 showed up 15 minutes late for appt -- put her on Huong's side for 10:45am FORGIVEN PER DR FOLLOW UP 03/03/2014 Appointment: Huong Osborne WPtel: [address] [place] [address] FOLLOW UP 03/03/2014 Patient Education: Patient Medication Summary Completed 03/03/2014 Appointment: Huong Osborne WPtel: [address] [place], [place] [phone] ER Follow UP 03/01/2014 Patient Education: Patient Medication Summary Completed 03/01/2014 Visit Plan: Add carafate for this next m onth Increase lyrica to 150mg q HS 02/09/2014 Appointment: Belia Reid WPtel: [address] [place], [place] [phone] [place] [address] Follow Up 02/09/2014 Patient Education: Patient Medication Summary Completed 02/09/2014 Visit Plan: Increase omeprazole back to 40mg po BID Use requip in AM and add lyrica 75mg q HS Recheck 1mo 12/23/2013 Appointment: Belia Reid WPtel: [address] [place], [place] [phone] FOLLOW UP 12/23/2013 Patient Education: Patient Medication Summary Completed 12/23/2013 Patient Education: Patient Medication Summary Completed 12/04/2013 Appointment: Belia Reid WPtel: [address] [place] [phone] UA 10/30/2013 Patient Education: Patient Medication Summary Completed 10/30/2013 Appointment: Belia Reid WPtel: [address] [place], [place] [phone] UA 10/21/2013 Patient Education: Patient Medication Summary Completed 10/21/2013 Visit Plan: Cryotherapy as above TAC and hydroxyzine to use prn to itching spots and itching SKs Add Advair HFA 115/21 1 p BID 10/05/2013 Appointment: Belia Reid WPtel: [address] [place], [place] [id number] 10/01 pt called and confirmed ACUTE ILLNESS Patient Education: Patient Medication Summary Completed 10/05/2013 Appointment: Belia Reid WPtel: [address] [place], [place] [phone] will pay copay and part of past balance FOLLOW U P 08/04/2013 Patient Education: Patient Medication Summary Completed 08/04/2013 Appointment: Belia Reid WPtel: [address] [place], [place] [id number] [place] INJECTION 07/13/2013 Patient Education: Patient Medication Summary Completed 07/13/2013 Appointment: Huong Osborne WPtel: [address] [place], [place] [id number] ACUTE ILLNESS 07/03/2013 Patient Education: Patient Medication Summary Completed 07/03/2013 Visit Plan: Cipro and culture urine 05/27/2013 Appointment: Huong Osborne WPtel: [address] [place], [place] [id number] [place] 05/26 confirmed appt and notified that balance and 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 is due at appt time FOLLOW UP 05/27/2013 Patient Education: Patient Medication Summary Completed 05/27/2013 Appointment: Belia Reid WPtel: [address] [place], [place] [id number] [place] UA 05/25/2013 Patient Education: Patient Medication Summary Completed 05/25/2013 Appointment: Belia Reid WPtel: [address] [place], [place] [phone] [place] INJECTION 05/04/2013 Patient Education: Patient Medication Summary Completed 05/04/2013 Appointment: Belia Reidtel: [address] [place], [place] [phone] [place] INJECTION 04/17/2013 Patient Education: Patient Medication Summary Completed 04/17/2013 Appointment: Belia Reid WPtel: [address] [place], [place] [id number] [place] INJECTION 04/15/2013 Appointment: Belia Reid WPtel: [address] [place], [place] [phone] 04/02 vm FOLLOW UP 04/06/2013 Patient Education: Patient Medication Summary Completed 04/06/2013 Visit Plan: Obtain lab results including UA from [facility] 11/10/2012 Appointment: Belia Reidtel: [address] [place], [place] [phone] ER Follow UP 11/10/2012 Patient Education: Patient Medication Summary Completed 11/10/2012 Appointment: Belia Reidtel: [address] [place], [place] [phone] 10/30/12 patient canceled appt due to fin ances. Offered to work something out, patient declined-LB FOLLOW UP 11/05/2012 Visit Plan: Continue Bystolic at current dose Pt has fwup with Neurology on September 16 09/02/2012 Appointment: Belia Reid WPtel: [address] [place], [place] [phone] FOLLOW UP 09/02/2012 Patient Education: Patient Medication Summary Completed 09/02/2012 Visit Plan: Continue bystolic at 5mg chris ly Sees Neurology tomorrow Use oxygen at bedtime 08/04/2012 Appointment: Belia Reid WPtel: [address] [place] [address] FOLLOW UP 08/04/2012 Patient Education: Patient Medication Summary Completed 08/04/2012 Appointment: Belia Reid WPtel: [address] [place] [address] Hospital fwup for 07/21/12. merged appointments FOLLOW UP 07/24/2012 Visit Plan: Start Bystolic 5mg daily for tachycardia Fwup with neurology for further workup Overnight O2 sat 07/21/2012 Appointment: Belia Reid WPtel: [address] [place] [address] Hospital Follow Up 07/21/2012 Patient Education: Patient Medication Summary Completed 07/21/2012 Visit Plan: SVN with Albuterol QID Add A velox 400mg daily Notify if worsens or persists 07/02/2012 Appointment: Belia Reid WPtel: [address] [place] [address] ACUTE ILLNESS 07/02/2012 Patient Education: Patient Medication Summary Completed 07/02/2012 Appointment: Belia Reid WPtel: [address] [place], [place] [phone] INJECTION 06/25/2012 Patient Education: Patient Medication Summary Completed 06/25/2012 Appointment: Belia Reid WPtel: [address] [place], [place] [id number] FOLLOW UP 06/24/2012 Patient Education: Patient Medication Summary Completed 06/24/2012 App[facility]ment: [phone] [facility] [facility]/19 left message FOLLOW UP 05/20/2012 [...] po TID 05/08/2012 Appointment: [facility] [address] [facility] [facility] 05/08/2012 Patient Education: Patient Medication Summary Completed 05/08/2012 Visit Plan: Continue current meds Contin ue lower dose on pain meds and Diazepam Still waiting on paperwork for botox for Migraines Will restart Neurontin at 600mg po q HS Pt going to stop Depakote due to can't afford 04/22/2012 Appointment: Belia Reid WPtel: [address] [place] [id number] 04/21 Hospital Follow Up 04/22/2012 Patient Education: Patient Medication Summary Completed 04/22/2012 Visit Plan: Injection to shoulder as abo ve Continue current meds Has appointment with neurology on HAs in 02/13/2012 Appointment: Belia Reid WPtel: [address] [place] [id number] Pt does not have $10 copay at [facility] time - will bring it in next week. Kianna iqbal'ed this. - [place] FOLLOW UP 02/13/2012 Patient Education: Patient Medication Summary Completed 02/13/2012 Visit Plan: Proceed with headache specia list Change nexium to Protonix Phenergan to use prn Sumatriptan to use prn Pt still on Inderal 01/28/2012 Appointment: Belia Reid [facility]Ptel[facility] [facility] Follow UP 01/28/2012 Patient Education: Patient [...] shot Retry trazadone for sleep 12/26/2011 Appointment: Belai Reid WPtel: [address] [place], [place] [phone] 12/24- appt. confirmed FOLLOW UP 2 Patient Education: Patient Medication Summary Completed 12/26/2011 Appointment: Belia Reid WPtel: [address] [place], [place] [id number] [place] FOLLOW UP 11/14/2011 Patient Education: Patient Medication Summary Completed 11/14/2011 Appointment: Belia Reid WPtel: [address] [place], [place] [phone] FOLLOW UP 09/12/2011 Patient Education: Patient Medication Summary Completed 09/12/2011 Visit Plan: Supportive care Decrease Liseth catalino to 50mg q HS Decrease AM dose of Valium to 5mg q HS Use Endocet sparingly 08/15/2011 Appointment: Belia Reid WPtel: [address] [place], [place] [phone] ER Follow UP 08/15/2011 Patient Education: Patient Medication Summary Completed 08/15/2011 Appointment: Belia Reid WPtel: [address] [place], [place] [phone] [place] Spoke directly to patient yesterday and confirmed the appoin tment. cn ACUTE ILLNESS 08/09/2011 Patient Education: Patient Medication Summary Completed 08/09/2011 Appointment: Belia Reid WPtel: [address] [place], [place] [phone] Hospital Follow Up 07/03/2011 Patient Education: Patient Medication Summary Completed 07/03/2011 Appointment: Belia Reid WPtel: [address] [place], [place] [phone] FOLLOW UP 06/04/2011 Patient Education: Patient Medication Summary Completed 06/04/2011 Visit Plan: Pt. wants "allergy shot" but in fact wants steroid shot. Will take a break from "generic Zyrtec they are getting from [facility]" and try Singulair for 2 weeks. 05/03/2011 Appointment: Iraida Jones WPtel: [address] [place], [place] [id number] ACUTE ILLNESS 05/03/2011 Patient Education: Patient Medication Summary Completed 05/03/2011 Visit Plan: Neurontin 400mg q HS for 1we ek then 800mg q HS Decrease requip to 1mg q HS for 2wks then stop Fwup 2mos 04/05/2011 Appointment: Belia Reid WPtel: [address] [place], [place] [phone] FOLLOW UP 04/05/2011 Patient Education: Patient Medication Summary Completed 04/05/2011 Visit Plan: Trial of neurontin in 2wks C ontinue current meds for stomach Pt has procedure with Dr. Ortiz next week for stone removal 03/08/2011 Appointment: Belia Reid WPtel: [address] [place] [phone] Hospital Follow Up 03/08/2011 Patient Education: Patient Medication Summary Completed 03/08/2011 Appointment: Belia Reid WPtel: [address] [place], [place] [phone] FOLLOW UP 02/19/2011 Visit Plan: reports increased [...] Flagyl 01/24/2011 Appointment: Iraida Jones WPtel: [address] [place] [address] ACUTE ILLNESS 01/24/2011 Patient Education: Patient Medication Summary Completed 01/24/2011 Appointment: Belia Reid WPtel: [address] [place] [address] [place] FOLLOW UP 01/02/2011 Patient Education: Patient Medication Summary Completed 01/02/2011 Appointment: Belia Reid WPtel: [address] [place] [address] FOLLOW UP 12/12/2010 Appointment: Belia Reid WPtel: [address] [place] [address] ACUTE ILLNESS 12/07/2010 Patient Education: Patient Medication Summary Completed 12/07/2010 Visit Plan: Increase Buspar to 10mg po B ID 11/16/2010 Appointment: Belia Reid WPtel: [address] [place] [address] FOLLOW UP 11/16/2010 Patient Education: Patient Medication Summary Completed 11/16/2010 Appointment: Iraida Jones WPtel: [address] [place] [address] ER Follow UP 11/02/2010 Patient Education: Patient Medication Summary Completed 11/02/2010 Visit Plan: Depo-Medrol/Kenalog given fo r allergies Add BuSpar for anxiety Oxycodone one p.o. q.i.d. for number 120 refilled 10/18/2010 Appointment: Belia Reid WPtel: [address] [place] [address] [place] FOLLOW UP 10/18/2010 Patient Education: Patient Medication Summary Completed 10/18/2010 Visit Plan: Continue current meds Discus sed epidurals for back vs PT--will proceed with epidurals to thoracolumbar region to see if helps with pain 09/19/2010 Appointment: Belia Reid WPtel: [address] [place], [place] [phone] FOLLOW UP 09/19/2010 Patient Education: Patient Medication Summary Completed 09/19/2010 Visit Plan: DC MS contin Check CT scan t horacic spine Fwup pending above results 09/06/2010 Appointment: Belia Reid WPtel: [address] [place] [phone] FOLLOW UP 09/06/2010 Patient Education: Patient Medication Summary Completed 09/06/2010 Visit Plan: Continue current meds Restar t MS contin 15mg po BID and use oxycodone prn Use daily senokot-s 2 po BID 08/10/2010 Appointment: Belia Reid WPtel: [address] [place] [phone] FOLLOW UP 08/10/2010 Patient Education: Patient Medication Summary Completed 08/10/2010 Visit Plan: Depomedrol/Kenalog given Pt sees ENT later this month Cont current meds Mammo scheduled 05/11/2010 Appointment: Belia Reid WPtel: [address] [place] [address] FOLLOW UP 05/11/2010 Patient Education: Patient Medication Summary Completed 05/11/2010 Appointment: Belia Reid WPtel: [address] [place], [place] [phone] [facility] 05/04/2010 Patient Education: Patient Medication Summary Completed 05/04/2010 Visit Plan: Pt sent to lab for UA 04/28/2010 Appointment: Belia Reid WPtel: [address] [place] [phone] [facility] 04/28/2010 Patient Education: Patient Medication Summary Completed 04/28/2010 Visit Plan: Check CT angiogram of chest Restart Advair Use proair prn Cont current meds Fwup with Card as schedulec 04/06/2010 Appointment: Belia Reid WPtel: [address] [place], [place] [phone] [place] [address] Follow Up 04/06/2010 Patient Education: Patient Medication Summary Completed 04/06/2010 Visit Plan: Paperwork filled out for pow erchair Depomedrol/kenalog given Pt sees ENT in 2wks to assess nasal obstruction problems 02/09/2010 Appointment: Belia Reidtel: [address] [place], [place] [id number] EST[facility] PAT[facility] 02/09/2010 Patient Education: Patient Medication Summary Completed 02/09/2010 Visit Plan: Change Elavil to Trazadone 1 50mg q HS Diflucan and nystatin for tinea cruris 01/05/2010 Appointment: Belia Reid WPtel: [address] [place] [address] FOLLOW UP 01/05/2010 Patient Education: Patient Medication Summary Completed 01/05/2010 Appointment: Belia Reid WPtel: [address] [place] [address] FOLLOW UP 12/07/2009 Patient Education: Patient Medication Summary Completed 12/07/2009 Appointment: Belia Reid WPtel: [address] [place] [address] FOLLOW UP 11/22/2009 Visit Plan: Cont current meds and await MRI results from Dr. Meadows's office and his final recommendations Will need to follow-up at later date on deviated septum 11/08/2009 Appointment: Belia Reid WPtel: [address] [place], [place] [phone] FOLLOW UP 11/08/2009 Patient Education: Patient Medication Summary Completed 11/08/2009 Visit Plan: Cont PT/OT See Neurosurgery Cont Tortoise shell brace 10/24/2009 Appointment: Belia Reid WPtel: [address] [place], [place] [phone] FOLLOW UP 10/24/2009 Patient Education: Patient Medication Summary Completed 10/24/2009 Appointment: Belia Reid WPtel: [address] [facility] Hospital Follow Up 10/17/2009 Appointment: Belia Reid WPtel: [address] [place], [place] [phone] ACUTE ILLNESS 07/25/2009 Patient Education: Patient Medication Summary Completed 07/25/2009 Appointment: Belia Reid WPtel: [address] [place], [place] [phone] FOLLOW UP 05/26/2009 Patient Education: Patient Medication Summary Completed 05/26/2009 Referral: Chino Balderas WPtel: [facility] [place] Referral Initiated Referral: Merry Vale WPtel: [facility] [id number] Vale will review referral and book appointment Completed Referral: Francisco Javier Yoder WPtel: [address] [id number] [place] Patient needs EGD insurance will not inc rease a medication unless this procedure results show a need Completed Referral: Francisco Javier Yoder WPtel: [address] [id number] [place] Referral Historical Reference Referral: Francisco Javier Yoder WPtel: [address] [id number] [place] Referral Initiated Instructions Comment . 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 Long discussion [...] Check pancreatic enzymes and US of aviva felizas as patient can't understand why she has [...] from "generic Zyrtec they are getting from [employer]" and try Singulair for 2 weeks. . [...]
--- OUTSIDE RECORDS SUMMARY | 2019-08-27 07:54 | XMS REPORT | CCD ---
Author Author Diana Reid D.O. 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 Phone [facility] D[facility] PP Unavailable CCM Unavailable Summary Purpose Interface Exchange Insurance Providers Payer name Policy type / Coverage type Covered green party ID Effective Begin Date Effective End Date [employer] MEDICARE Medicare Part B [id number] 2019 Unknown Family History Family History data not found Social History Social History Element Codes Description Effective Dates Tobacco history SNOMED CT: 943899854 Nonsmoker 09/13/2010 Allergies, Adverse Reactions, Alerts Substance Reaction Codes Entered Date Inactivated Date Status Eggs reaction [id number] 09/15/2015 No Inactive Date Active _ Unknown [...] Fill Instructions Ativan 0.5 mg tablet RxNorm: 794783 1 Tablet(s) Oral th ree times a day for anxiety/shortness of air/stridor 07/29/2019 08/27/2019 Active Singulair 10 mg tablet RxNorm: 337329 1 Tablet(s) Oral QPM 07/29/19 20 01/25/2020 Active diltiazem CD 240 mg capsule,extended release 24 hr RxNorm: 8 79138 1 Capsule(s) Oral QD 07/15/2019 01/10/2020 Active metoprolol tartrate 50 mg tablet RxNorm: 620380 1 Table t(s) Oral two times a day 07/06/2019 No Stop Date Active Novolin N NPH U-100 Insulin isophane 100 unit/mL subcu taneous susp RxNorm: 596651 25 Unit(s) Subcutaneous two times a day 07/06/2019 07/06/2019 I nactive Colestid 1 gram tablet RxNorm: 3290433 1 Tablet(s) Oral two times a day for diarrhea 07/06/2019 09/04/2019 Active pramipexole 1 mg tablet RxNorm: 909680 1 Tablet(s) Oral QPM FOR RESTLESS LEGS (REPLACES REQUIP) 06/25/2019 06/19/2020 Active hydroxyzine HCl 25 mg tablet RxNorm: 480899 1 Tablet(s) Oral QPM for itching/aniety 06/25/2019 09/23/2019 Active Ativan 0.5 mg tablet RxNorm: 907193 1 Tablet(s) Oral th ree times a day for anxiety/shortness of air/stridor 06/25/2019 07/25/2019 Inactive Levaquin 500 mg tablet RxNorm: 025108 1 Tablet(s) Oral QD 06/16/2019 06/23/2019 Inactive Flagyl 500 mg tablet RxNorm: 725475 1 Tablet(s) Oral three time s a day 06/16/2019 06/23/2019 Inactive Vancocin 125 mg capsule RxNorm: 979168 1 Capsule(s) Oral four t imes a day 06/08/2019 06/18/2019 Inactive omeprazole 40 mg capsule,delayed release RxNorm: 461912 1 Capsule(s) Oral two times a day 05/26/2019 11/21/2019 Active Flagyl 500 mg tablet RxNorm: 488818 1 Tablet(s) Oral three time s a day 05/26/2019 06/05/2019 Inactive diltiazem CD 240 mg capsule,extended release 24 hr RxNorm: 8 18388 1 Capsule(s) Oral QD 05/26/2019 07/14/2019 Inactive Cipro 250 mg tablet RxNorm: 687938 1 Tablet(s) Oral two times a day 05/26/2019 06/02/2019 Inactive hydroxyzine HCl 25 mg tablet RxNorm: 300555 1 Tablet(s) Oral QPM for itching/aniety 05/21/2019 06/24/2019 Inactive metoprolol tartrate 25 mg tablet RxNorm: 446209 1 Table t(s) Oral two times a day 05/21/2019 07/05/2019 Inactive hydroxyzine HCl 25 mg tablet RxNorm: 629111 1 Tablet(s) Oral QPM for itching/aniety 05/13/2019 05/20/2019 Inactive Singulair 10 mg tablet RxNorm: 934660 1 Tablet(s) Oral QPM 05/06/1905/12/2019 Inactive gabapentin 600 mg tablet RxNorm: 548368 1 Tablet(s) Oral QD 020 06/05/2019 Inactive Valium 5 mg tablet RxNorm: 555023 1 Tablet(s) Oral QPM for stri joao/muscle spasm 04/29/2019 06/24/2019 Inactive baclofen 10 mg tablet RxNorm: 036380 1 Tablet(s) Oral QPM for s pasm/neck pain 04/24/2019 05/23/2019 Inactive baclofen 10 mg tablet RxNorm: 191296 1 Tablet(s) Oral QPM for s pasm/neck pain 04/24/2019 04/23/2019 Inactive Novolin N NPH U-100 Insulin isophane 100 unit/mL subcu taneous susp RxNorm: 318305 23 Unit(s) Subcutaneous two times a day 04/20/2019 07/05/2019 I nactive cyclobenzaprine 5 mg tablet RxNorm: 761171 1 Tablet(s) Oral three times a day as needed 04/16/2019 04/23/2019 Inactive hydroxyzine HCl 25 mg tablet RxNorm: 634558 1 Tablet(s) Oral three times a day for itching/aniety 04/08/2019 05/12/2019 Inactive gabapentin 600 mg tablet RxNorm: 259598 1 Tablet(s) Oral two ti mes a day 04/08/2019 05/05/2019 Inactive gabapentin 600 mg tablet RxNorm: 943651 1 Tablet(s) Oral two ti mes a day 04/08/2019 04/07/2019 Inactive Novolin N NPH U-100 Insulin isophane 100 unit/mL subcu taneous susp RxNorm: 501636 10 Unit(s) Subcutaneous two times a day 03/03/2019 04/19/2019 I nactive gabapentin 300 mg capsule RxNorm: 945799 1 Capsule(s) O ral every night at bedtime for neuropathy 02/26/2019 04/07/2019 Inactive gabapentin 300 mg capsule RxNorm: 577903 1 Capsule(s) O ral every night at bedtime for neuropathy 02/20/2019 02/25/2019 Inactive buspirone 5 mg tablet RxNorm: 684282 TAKE 1 TABLET THREE TIMES MILDRED Y 02/12/2019 05/12/2019 Inactive pramipexole 1 mg tablet RxNorm: 020090 1 Tablet(s) Oral QPM FOR RESTLESS LEGS (REPLACES REQUIP) 02/12/2019 06/24/2019 Inactive Lexapro 10 mg tablet RxNorm: 816301 TAKE 1 TABLET EVERY DAY FOR MOO D 01/31/2019 No Stop Date Active Ativan 0.5 mg tablet RxNorm: 094364 TAKE 1 TABLET BY MO UT THREE TIMES DAILY NEEDED FOR ANXIETY 01/26/2019 04/28/2019 Inactive Ativan 0.5 mg tablet RxNorm: 366301 TAKE 1 TABLET BY MO UT THREE TIMES DAILY NEEDED FOR ANXIETY 01/05/2019 01/05/2019 Inactive Levaquin 500 mg tablet RxNorm: 164640 1 Tablet(s) Oral QD 12/25/2018 12/24/2018 Inactive Levaquin 500 mg tablet RxNorm: 395929 1 Tablet(s) Oral QD 12/25/2018 01/04/2019 Inactive baclofen 10 mg tablet RxNorm: 297305 1 Tablet(s) Oral three maico es a day 11/20/2018 01/19/2019 Inactive Ativan 0.5 mg tablet RxNorm: 297686 TAKE 1 TABLET BY MO UT THREE TIMES DAILY NEEDED FOR ANXIETY 11/20/2018 01/04/2019 Inactive gabapentin 300 mg capsule RxNorm: 862936 1 Capsule(s) O ral every night at bedtime for neuropathy 11/20/2018 12/20/2018 Inactive Lexapro 10 mg tablet RxNorm: 869635 1 Tablet(s) PO QD for mood 07/201801/30/2019 Inactive Zithromax Z-Lj 250 mg tablet RxNorm: 911269 Tablet(s) PO take as directed 11/04/2018 11/19/2018 Inactive Insulin Syringe 1 mL 29 gauge x 1/2" RxNorm: 2 s yringes daily with insulin Dx: E11.65 10/08/2018 No Stop Date Active gabapentin 300 mg capsule RxNorm: 837591 1 Capsule(s) PO QHS fo r neuropathy 09/18/2018 10/17/2018 Inactive cyclobenzaprine 5 mg tablet RxNorm: 218096 1 Tablet(s) PO TID a s needed 09/09/2018 09/08/2018 Inactive cyclobenzaprine 5 mg tablet RxNorm: 927424 1 Tablet(s) PO TID a s needed 09/09/2018 10/08/2018 Inactive prednisone 20 mg tablet RxNorm: 923070 1 Tablet(s) PO QD 09/08/2018 0 09/12/2018 Inactive Lantus Solostar U-100 Insulin 100 unit/mL (3 mL) subcu taneous pen RxNorm: 527563 55 Unit(s) SQ QAM 08/28/2018 11/03/2018 Inactive hydroxyzine HCl 25 mg tablet RxNorm: 979328 1 Tablet(s) PO QHS for itching 08/20/2018 05/12/2019 Inactive Lexapro 10 mg tablet RxNorm: 925266 1 Tablet(s) PO QD for mood 08/0210/18/2018 Inactive sumatriptan 100 mg tablet RxNorm: 118063 1 Tablet(s) PO at headache onset. May repeat 1 in two hours if headache remains. Max of 2 per 24 hours 04/02/2018 05/20/2018 Inactive Diflucan 150 mg tablet RxNorm: 602557 1 Tablet(s) PO QD 03/18/2018 Inactive Diflucan 150 mg tablet RxNorm: 038195 1 Tablet(s) PO QD 03/18/2018 Inactive Flagyl 500 mg tablet RxNorm: 769433 1 Tablet(s) PO TID 03/17/2018 Inactive Levaquin 500 mg tablet RxNorm: 970111 1 Tablet(s) PO QD 03/17/2018 Inactive Levaquin 500 mg tablet RxNorm: 573127 1 Tablet(s) PO QD 03/17/2018 Inactive Flagyl 500 mg tablet RxNorm: 489797 1 Tablet(s) PO TID 03/17/2018 Inactive ketoconazole 200 mg tablet RxNorm: 903528 1 Tablet(s) PO QD 019 03/19/2018 Inactive Celebrex 200 mg capsule RxNorm: 738274 1 Capsule(s) PO BID 02/06/2005/20/2018 Inactive tramadol 50 mg tablet RxNorm: 495794 1 Tablet(s) PO TID as needed 1 04/08/2017 05/20/2018 Inactive gabapentin 300 mg capsule RxNorm: 110995 1 Capsule(s) PO BID 201705/20/2018 Inactive Diflucan 150 mg tablet RxNorm: 289766 1 Tablet(s) PO QD 01/20/2018 Inactive pramipexole 1 mg tablet RxNorm: 024586 1 Tablet(s) PO Q PM FOR RESTLESS LEGS (REPLACES REQUIP) 01/08/2018 02/11/2019 Inactive cyclobenzaprine 10 mg tablet RxNorm: 294510 1 Tablet(s) PO TID as needed for muscle spasm 12/17/2017 05/20/2018 Inactive pramipexole 1 mg tablet RxNorm: 404826 TAKE 1 TABLET BY MOUTH ONCE DAILY IN THE EVENING FOR RESTLESS LEGS (REPLACES REQUIP) 12/04/2017 01/05/2018 Inac tive Amaryl 4 mg tablet RxNorm: 854049 1 Tablet(s) PO BID replaces 2mg 0 11/05/2017 12/16/2017 Inactive Singulair 10 mg tablet RxNorm: 178616 1 Tablet(s) PO QHS for al lergies/lungs 10/30/2017 12/16/2017 Inactive Diflucan 100 mg tablet RxNorm: 789374 1 Tablet(s) PO QD 10/23/2017 Inactive Ativan 0.5 mg tablet RxNorm: 126002 TAKE 1 TABLET BY MOUTH THRE E TIMES DAILY 08/30/2017 11/20/2018 Inactive buspirone 5 mg tablet RxNorm: 267584 1 Tablet(s) PO TID 07/11/2017 Inactive propranolol 60 mg tablet RxNorm: 159549 1 Tablet(s) PO BID repl aces 40mg dose 06/26/2017 12/16/2017 Inactive Amaryl 4 mg tablet RxNorm: 342497 1 Tablet(s) PO BID replaces 2mg 0 06/12/2017 11/05/2017 Inactive omeprazole 40 mg capsule,delayed release RxNorm: 147787 1 Capsule(s) PO BID TAKE ONE CAPSULE BY MOUTH TWICE DAILY 05/30/2017 11/25/2017 Inactive pramipexole 1 mg tablet RxNorm: 815768 1 Tablet(s) PO Q PM for restless legs--replaces requip 05/30/2017 11/25/2017 Inactive amitriptyline 50 mg tablet RxNorm: 066203 1 Tablet(s) PO QHS 201709/16/2017 Inactive Diflucan 100 mg tablet RxNorm: 954081 1 Tablet(s) PO BID 05/07/2017 0 05/20/2017 Inactive nystatin (bulk) 100 million unit powder RxNorm: Application TO P BID 05/07/2017 05/20/2018 Inactive cholestyramine (with sugar) 4 gram oral powder RxNorm: 788972 1 Unit Dose PO QD 05/07/2017 01/20/2018 Inactive Ativan 0.5 mg tablet RxNorm: 709593 TAKE ONE TABLET BY MOUTH TH REE TIMES DAILY 05/01/2017 09/02/2017 Inactive Trulicity 1.5 mg/0.5 mL subcutaneous pen injector RxNorm: 15 45746 1 Unit Dose SQ WEEKLY 02/22/2017 03/23/2017 Inactive doxycycline hyclate 100 mg capsule RxNorm: 2689539 1 Capsule(s) PO BID 01/23/2017 02/05/2017 Inactive Amaryl 4 mg tablet RxNorm: 940537 1 Tablet(s) PO BID replaces 2mg 1 03/25/2016 05/22/2017 Inactive magnesium oxide 400 mg capsule RxNorm: 402512 1 Capsule(s) PO QD 07/18/2017 Inactive Ativan 0.5 mg tablet RxNorm: 536757 TAKE ONE TABLET BY MOUTH TH REE TIMES DAILY 01/17/2017 05/01/2017 Inactive Amaryl 2 mg tablet RxNorm: 153537 1 Tablet(s) PO BID 12/27/201601/22 Inactive Amaryl 2 mg tablet RxNorm: 297217 1 Tablet(s) PO BID 12/26/201612/26 Inactive Ativan 0.5 mg tablet RxNorm: 920389 TAKE ONE TABLET BY MOUTH TH REE TIMES DAILY 12/05/2016 01/18/2017 Inactive pramipexole 1 mg tablet RxNorm: 000553 1 Tablet(s) PO Q PM for restless legs--replaces requip 11/26/2016 05/30/2017 Inactive Mobic 15 mg tablet RxNorm: 316351 1 Tablet(s) PO QD 10/08/20162016 Inactive cyclobenzaprine 5 mg tablet RxNorm: 347832 1/2- 1 Tablet(s) PO TID 10/08/2016 10/17/2016 Inactive Ativan 0.5 mg tablet RxNorm: 876911 1 Tablet(s) PO TID 09/20/201607/2016 Inactive amitriptyline 50 mg tablet RxNorm: 242569 1 Tablet(s) PO QHS 201605/30/2017 Inactive propranolol 60 mg tablet RxNorm: 571971 1 Tablet(s) PO BID repl aces 40mg dose 09/19/2016 06/26/2017 Inactive Ativan 0.5 mg tablet RxNorm: 261881 1 Tablet(s) PO TID 08/20/2016 Inactive omeprazole 40 mg capsule,delayed release RxNorm: 374124 1 Capsule(s) PO BID TAKE ONE CAPSULE BY MOUTH TWICE DAILY 08/20/2016 05/30/2017 Inactive amitriptyline 50 mg tablet RxNorm: 147098 1 Tablet(s) PO QHS 201609/18/2016 Inactive pramipexole 1 mg tablet RxNorm: 331900 1 Tablet(s) PO Q PM for restless legs--replaces requip 07/23/2016 11/25/2016 Inactive Amaryl 2 mg tablet RxNorm: 914738 1 Tablet(s) PO BID 07/23/201612/27 Inactive propranolol 40 mg tablet RxNorm: 474344 1 Tablet(s) PO BID 07/13/19 17 09/18/2016 Inactive Ativan 0.5 mg tablet RxNorm: 973753 1 Tablet(s) PO QID 06/19/2016 Inactive Amaryl 2 mg tablet RxNorm: 556339 1 Tablet(s) PO BID 06/19/201607/22 Inactive Ativan 0.5 mg tablet RxNorm: 161480 1 Tablet(s) PO QID 06/19/2016 Inactive buspirone 5 mg tablet RxNorm: 953815 1 Tablet(s) PO TID 06/19/2016 Inactive Ativan 0.5 mg tablet RxNorm: 911980 1 Tablet(s) PO BID 05/24/2016 Inactive buspirone 5 mg tablet RxNorm: 798556 1 Tablet(s) PO TID 05/23/2016 Inactive Macrobid 100 mg capsule RxNorm: 195889 1 Capsule(s) PO QOD 05/03/19 17 10/07/2016 Inactive pramipexole 1 mg tablet RxNorm: 930206 Tablet(s) 1 Tabl et(s) PO QPM for restless legs--replaces requip 04/26/2016 06/24/2016 Inactive propranolol 40 mg tablet RxNorm: 527841 TAKE ONE TABLET BY MOUT H TWICE DAILY 04/26/2016 06/24/2016 Inactive Detrol LA 4 mg capsule,extended release RxNorm: 230622 1 Capsul e(s) PO QHS 04/03/2016 05/02/2016 Inactive prednisone 20 mg tablet RxNorm: 879785 1 Tablet(s) PO QD 02/29/2016 0 03/04/2016 Inactive Actos 30 mg tablet RxNorm: 369830 TAKE ONE TABLET BY MOUTH ONCE DAILY 02/27/2016 12/19/2016 Inactive clindamycin 300 mg capsule RxNorm: 286855 1 Capsule(s) PO TID 02/0102/08/2016 Inactive Flagyl 500 mg tablet RxNorm: 015848 1 Tablet(s) PO BID 02/02/201609/2015 Inactive omeprazole 40 mg capsule,delayed release RxNorm: 626644 TAKE ONE CAPSULE BY MOUTH TWICE DAILY 01/15/2016 07/12/2016 Inactive gabapentin 300 mg capsule RxNorm: 882054 1 Capsule(s) PO QAM an d 2 po q HS 01/05/2016 06/18/2016 Inactive gabapentin 300 mg capsule RxNorm: 864163 1 Capsule(s) P O BID 1 Capsule(s) PO QHS 12/05/2015 01/04/2016 Inactive cyclobenzaprine 10 mg tablet RxNorm: 600750 1 Tablet(s) PO TID for spasm as needed for muscle spasm 12/05/2015 06/18/2016 Inactive ciprofloxacin 250 mg tablet RxNorm: 373560 1 Tablet(s) PO BID 12/0412/14/2015 Inactive pramipexole 1 mg tablet RxNorm: 714784 Tablet(s) 1 Tabl et(s) PO QPM for restless legs--replaces requip 11/07/2015 11/26/2016 Inactive Januvia 100 mg tablet RxNorm: 942468 1 Tablet(s) PO QD 10/26/201504/2015 Inactive propranolol 40 mg tablet RxNorm: 932647 TAKE ONE TABLET BY MOUT H TWICE DAILY 10/25/2015 04/21/2016 Inactive gabapentin 300 mg capsule RxNorm: 723574 1 Capsule(s) PO QHS 201512/04/2015 Inactive Cipro 500 mg tablet RxNorm: 685425 1 Tablet(s) PO BID 10/05/2015 0811/2015 Inactive pramipexole 1 mg tablet RxNorm: 787546 Tablet(s) 1 Tabl et(s) PO QPM for restless legs--replaces requip 10/04/2015 11/02/2015 Inactive propranolol 40 mg tablet RxNorm: 295060 TAKE ONE TABLET BY MOUT H TWICE DAILY 09/26/2015 10/24/2015 Inactive Amaryl 2 mg tablet RxNorm: 038918 1 Tablet(s) PO QD 09/15/20152016 Inactive gabapentin 300 mg capsule RxNorm: 691731 1 Capsule(s) PO QHS 201510/14/2015 Inactive buspirone 5 mg tablet RxNorm: 623785 1 Tablet(s) PO TID 09/15/2015 Inactive pramipexole 1 mg tablet RxNorm: 693906 Tablet(s) 1 Tabl et(s) PO QPM for restless legs--replaces requip 09/08/2015 10/03/2015 Inactive pramipexole 1 mg tablet RxNorm: 662059 1 Tablet(s) PO Q PM for restless legs--replaces requip 08/08/2015 09/08/2015 Inactive Amaryl 2 mg tablet RxNorm: 701423 1 Tablet(s) PO QD 07/07/20152015 Inactive pramipexole 1 mg tablet RxNorm: 948336 1 Tablet(s) PO Q PM for restless legs--replaces requip 07/05/2015 08/03/2015 Inactive ropinirole 2 mg tablet RxNorm: 701208 TAKE ONE TABLET BY MOUTH TWICE DAILY 05/09/2015 09/14/2015 Inactive Diflucan 100 mg tablet RxNorm: 543753 1 Tablet(s) PO QD 03/30/2015 Inactive propranolol 40 mg tablet RxNorm: 678167 1 Tablet(s) PO BID 02/24/20 15 08/21/2015 Inactive [SAVINGS FOR UNINSURED PATIE NTS -- BIN:633470, PCN: ASPROD1, Group: AME08, ID# [id number], Process claim through [employer], for questions: . THIS IS NOT INSURANCE.] Flagyl 500 mg tablet RxNorm: 493182 1 Tablet(s) PO BID 02/03/201502/2015 Inactive Cipro 500 mg tablet RxNorm: 818982 1 Tablet(s) PO BID 02/03/201502/01 Inactive Carafate 1 gram tablet RxNorm: 477949 1 Tablet(s) PO QID make i nto slurry 02/03/2015 09/14/2015 Inactive ondansetron HCl 4 mg tablet RxNorm: 282538 1 Tablet(s) PO Q4H as needed for nausea 12/29/2014 01/04/2016 Inactive Diflucan 100 mg tablet RxNorm: 109628 1 Tablet(s) PO QD 12/29/2014 Inactive Keflex 500 mg capsule RxNorm: 767903 1 Capsule(s) PO TID 12/29/2014 1 03/09/2014 Inactive omeprazole 40 mg capsule,delayed release RxNorm: 697094 1 Capsu le(s) PO BID 12/27/2014 12/21/2015 Inactive [SAVINGS FOR UNINSUR ED PATIENTS -- BIN:835446, PCN: ASPROD1, Group: AME08, ID# [id number], Process claim through [employer], for questions: . THIS IS NOT INSURANCE.] ropinirole 2 mg tablet RxNorm: 097831 1 Tablet(s) PO BID 09/29/2014 0 03/27/2015 Inactive [SAVINGS FOR UNINSURED PATIENTS -- BIN:0 14477, PCN: ASPROD1, Group: AME08, ID# [id number], Process claim through [employer], for questions: . THIS IS NOT INSURANCE.] buspirone 5 mg tablet RxNorm: 303774 1 Tablet(s) PO TID 09/17/2014 Inactive ropinirole 2 mg tablet RxNorm: 732058 1 Tablet(s) PO BID 09/02/2014 0 09/28/2014 Inactive [SAVINGS FOR UNINSURED PATIENTS -- BIN:0 77465, PCN: ASPROD1, Group: AME08, ID# [id number], Process claim through [employer], for questions: . THIS IS NOT INSURANCE.] Zyrtec 10 mg tablet RxNorm: 2504026 1 Tablet(s) PO QD 09/02/201412/02 Inactive propranolol 40 mg tablet RxNorm: 608913 1 Tablet(s) PO BID 07/21/19 15 02/23/2015 Inactive [SAVINGS FOR UNINSURED PATIE NTS -- BIN:155969, PCN: ASPROD1, Group: AME08, ID# [id number], Process claim through [employer], for questions: . THIS IS NOT INSURANCE.] ropinirole 2 mg tablet RxNorm: 497706 1 Tablet(s) PO QHS 05/14/2014 0 09/01/2014 Inactive [SAVINGS FOR UNINSURED PATIENTS -- BIN:0 15954, PCN: ASPROD1, Group: AME08, ID# [id number], Process claim through [employer], for questions: . THIS IS NOT INSURANCE.] cyclobenzaprine 10 mg tablet RxNorm: 859846 1 Tablet(s) PO QHS for spasm 04/06/2014 09/01/2014 Inactive ipratropium-albuterol 0.5 mg-3 mg(2.5 mg base)/3 mL ne bulization soln RxNorm: 1229269 1 Unit Dose INH Q4H 03/16/2014 No Stop Date Active [SAVINGS FOR UNINSURED PATIENTS -- BIN:960857, PCN: ASPROD1, Group: AME08, ID# [id number], Process claim through [employer], for questions: . THIS IS NOT INSURANCE.] prednisone 20 mg tablet RxNorm: 373867 1 Tablet(s) PO BID 03/09/2014 03/15/2014 Inactive [SAVINGS FOR UNINSURED PATIENTS -- BIN:0 60880, PCN: ASPROD1, Group: AME08, ID# [id number], Process claim through [employer], for questions: . THIS IS NOT INSURANCE.] ipratropium-albuterol 0.5 mg-3 mg(2.5 mg base)/3 mL ne bulization soln RxNorm: 8989052 1 Unit Dose INH Q4H 03/09/2014 03/15/2014 Inactive [SAVINGS FOR UNINSURED PATIENTS -- BIN:187315, PCN: ASPROD1, Group: AME08, ID# [id number], Process claim through [employer], for questions: . THIS IS NOT INSURANCE.] Levaquin 500 mg tablet RxNorm: 890517 1 Tablet(s) PO QD 03/09/2014 Inactive [SAVINGS FOR UNINSURED PATIENTS -- BIN:0 39287, PCN: ASPROD1, Group: AME08, ID# [id number], Process claim through [employer], for questions: . THIS IS NOT INSURANCE.] Carafate 1 gram tablet RxNorm: 435946 1 Tablet(s) PO AC & HS ma ke into slurry 02/09/2014 09/01/2014 Inactive [SAVINGS FOR UNINSUR ED PATIENTS -- BIN:570818, PCN: ASPROD1, Group: AME08, ID# [id number], Process claim through [employer], for questions: . THIS IS NOT INSURANCE.] Fioricet 50 mg-300 mg-40 mg capsule RxNorm: 6236204 1-2 Capsule(s) PO Q4H as needed for headache --max of 6 a day 02/09/2014 09/01/2014 Inactive [SAVINGS FOR UNINSURED PATIENTS -- BIN:343595, PCN: ASPROD1, Group: AME08, ID# [id number], Process claim through [employer], for questions: . THIS IS NOT INSURANCE.] propranolol 40 mg tablet RxNorm: 495065 1 Tablet(s) PO BID 12/08/19 14 06/04/2014 Inactive [SAVINGS FOR UNINSURED PATIE NTS -- BIN:604723, PCN: ASPROD1, Group: AME08, ID# [id number], Process claim through [employer], for questions: . THIS IS NOT INSURANCE.] buspirone 5 mg tablet RxNorm: 907249 1 Tablet(s) PO TID 12/02/2013 Inactive omeprazole 40 mg capsule,delayed release RxNorm: 856876 1 Capsu le(s) PO BID 11/25/2013 11/19/2014 Inactive [SAVINGS FOR UNINSUR ED PATIENTS -- BIN:788763, PCN: ASPROD1, Group: AME08, ID# [id number], Process claim through [employer], for questions: . THIS IS NOT INSURANCE.] ropinirole 2 mg tablet RxNorm: 429320 1 Tablet(s) PO QHS 11/10/2013 0 05/08/2014 Inactive [SAVINGS FOR UNINSURED PATIENTS -- BIN:0 50136, PCN: ASPROD1, Group: AME08, ID# [id number], Process claim through [employer], for questions: . THIS IS NOT INSURANCE.] Cipro 500 mg tablet RxNorm: 284128 1 Tablet(s) PO BID 10/21/201312/03 Inactive [SAVINGS FOR UNINSURED PATIENTS -- BIN:0 01413, PCN: ASPROD1, Group: AME08, ID# [id number], Process claim through [employer], for questions: . THIS IS NOT INSURANCE.] hydroxyzine HCl 25 mg tablet RxNorm: 909185 1 Tablet(s) PO Q4-6 H as needed 10/05/2013 01/04/2016 Inactive [SAVINGS FOR UNINSUR ED PATIENTS -- BIN:179272, PCN: ASPROD1, Group: AME08, ID# [id number], Process claim through [employer], for questions: . THIS IS NOT INSURANCE.] triamcinolone acetonide 0.1 % topical cream RxNorm: 7810944 Appl ication TOP BID 10/05/2013 09/01/2014 Inactive [SAVINGS FOR UNINSUR ED PATIENTS -- BIN:853548, PCN: ASPROD1, Group: AME08, ID# [id number], Process claim through [employer], for questions: . THIS IS NOT INSURANCE.] albuterol sulfate HFA 90 mcg/actuation aerosol inhaler RxNor m: 7557131 2 Puff(s) INH Q4H as needed for cough 10/01/2013 12/22/2013 Inactive [MAKSIM INGS FOR UNINSURED PATIENTS -- BIN:490060, PCN: ASPROD1, Group: AME08, ID# [id number], Process claim through [employer], for questions: . THIS IS NOT INSURANCE.] propranolol 40 mg tablet RxNorm: 660899 1 Tablet(s) PO BID 09/02/19 14 11/29/2013 Inactive [SAVINGS FOR UNINSURED PATIE NTS -- BIN:784226, PCN: ASPROD1, Group: AME08, ID# [id number], Process claim through [employer], for questions: . THIS IS NOT INSURANCE.] propranolol 40 mg tablet RxNorm: 838945 1 Tablet(s) PO BID 08/05/19 14 08/31/2013 Inactive [SAVINGS FOR UNINSURED PATIE NTS -- BIN:394224, PCN: ASPROD1, Group: AME08, ID# [id number], Process claim through [employer], for questions: . THIS IS NOT INSURANCE.] Toprol XL 50 mg tablet,extended release RxNorm: 459009 1 Tablet (s) PO QHS 07/23/2013 08/03/2013 Inactive Macrobid 100 mg capsule RxNorm: 496191 1 Capsule(s) PO BID 07/04/19 14 07/09/2013 Inactive Toprol XL 50 mg tablet,extended release RxNorm: 549497 1 Tablet (s) PO QHS 05/28/2013 06/26/2013 Inactive ciprofloxacin 500 mg tablet RxNorm: 023116 1 Tablet(s) PO BID 05/2706/02/2013 Inactive Bystolic 5 mg tablet RxNorm: 302865 1 Tablet(s) PO QD 05/27/201305/03 Inactive ropinirole 2 mg tablet RxNorm: 580542 1 Tablet(s) PO QHS 04/22/2013 0 11/09/2013 Inactive Cipro 250 mg tablet RxNorm: 179078 1 Tablet(s) PO BID 04/06/201311/2013 Inactive ropinirole 2 mg tablet RxNorm: 170080 1 Tablet(s) PO QHS 02/17/2013 0 04/21/2013 Inactive Amaryl 2 mg tablet RxNorm: 619402 1 Tablet(s) PO QAM 11/11/201211/10 Inactive Amaryl 2 mg tablet RxNorm: 862091 1 Tablet(s) PO QAM 11/11/201204/05 Inactive omeprazole 40 mg capsule,delayed release RxNorm: 583192 1 Capsu le(s) PO BID 08/14/2012 08/08/2013 Inactive Bystolic 5 mg tablet RxNorm: 947573 1 Tablet(s) PO QD 08/14/201205/03 Inactive propranolol 60 mg tablet RxNorm: 033712 Tablet(s) PO TAKE 1 TAB LET TWICE DAILY 08/01/2012 09/01/2012 Inactive Bystolic 5 mg tablet RxNorm: 651467 1 Tablet(s) PO QD 07/21/201207/02 Inactive Bystolic 5 mg tablet RxNorm: 840028 1 Tablet(s) PO QD 07/21/201207/03 Inactive Prilosec 40 mg capsule,delayed release RxNorm: 460513 1 Capsule (s) PO BID 06/24/2012 07/21/2012 Inactive buspirone 10 mg tablet RxNorm: 726278 1 Tablet(s) PO TID 05/08/2012 0 05/23/2016 Inactive Valium 10 mg tablet RxNorm: 295599 1 Tablet(s) PO BID 04/02/201207/03 Inactive Endocet 10 mg-325 mg tablet RxNorm: 4454558 1 Tablet(s) PO QID 03/0607/21/2012 Inactive as needed for severe pain Valium 10 mg tablet RxNorm: 498041 1 Tablet(s) PO BID 02/27/2012 No S top Date Active Endocet 10 mg-325 mg tablet RxNorm: 8652584 1 Tablet(s) PO QID 02/0203/27/2012 Inactive as needed for severe pain Endocet 10 mg-325 mg tablet RxNorm: 2422915 1 Tablet(s) PO QID 01/0302/26/2012 Inactive as needed for severe pain Valium 10 mg tablet RxNorm: 978355 1 Tablet(s) PO BID 01/29/2012 No S top Date Active Protonix 40 mg tablet,delayed release RxNorm: 733086 1 Tablet(s ) PO QD 01/28/2012 07/21/2012 Inactive metformin ER 500 mg tablet,extended release 24 hr RxNorm: 86 0977 1 Tablet(s) PO QD 12/26/2011 07/20/2012 Inactive Trazadone 150 mg Tablet RxNorm: 1 Tablet(s) PO QHS prn sleep 1 04/23/2012 Inactive Endocet 10 mg-325 mg tablet RxNorm: 0340453 1 Tablet(s) PO QID 12/0301/24/2012 Inactive as needed for severe pain Nexium 40 mg capsule,delayed release RxNorm: 575336 1 Capsule(s ) PO QD 12/26/2011 01/27/2012 Inactive Symbicort 160 mcg-4.5 mcg/actuation HFA Aerosol Inhaler RxNo rm: 0488350 2 Puff(s) INH BID 12/04/2011 07/21/2012 Inactive Endocet 10 mg-325 mg tablet RxNorm: 0653716 1 Tablet(s) PO QID 11/0312/25/2011 Inactive as needed for severe pain metformin ER 500 mg tablet,extended release 24 hr RxNorm: 86 0977 1 Tablet(s) PO QD 11/20/2011 12/19/2011 Inactive metformin ER 500 mg tablet,extended release 24 hr RxNorm: 86 0977 1 Tablet(s) PO QD 11/20/2011 11/19/2011 Inactive amitriptyline 100 mg tablet RxNorm: 954581 Tablet(s) PO QHS 1 a nd 1/2 tabs QHS 11/12/2011 11/13/2011 Inactive Valium 10 mg tablet RxNorm: 885655 1 Tablet(s) PO BID 11/09/2011 No S top Date Active Endocet 10 mg-325 mg tablet RxNorm: 2717241 1 Tablet(s) PO QID 10/0211/14/2011 Inactive as needed for severe pain Aricept 10 mg Tab RxNorm: 347581 1 Tablet(s) PO QD 10/05/2011 013 Inactive Valium 10 mg tablet RxNorm: 624542 1 Tablet(s) PO BID 10/05/2011 No S top Date Active Endocet 10 mg-325 mg Tab RxNorm: 5284993 1 Tablet(s) PO QID 012 10/09/2011 Inactive as needed for severe pain Aricept 10 mg Tab RxNorm: 632181 1 Tablet(s) PO QD 08/14/2011 012 Inactive Endocet 10 mg-325 mg Tab RxNorm: 2668501 1 Tablet(s) PO QID 012 08/31/2011 Inactive as needed for severe pain Valium 10 mg Tab RxNorm: 800934 1 Tablet(s) PO BID 08/02/2011 No Stop Date Active propranolol 60 mg tablet RxNorm: 588319 1 Tablet(s) PO BID 07/26/19 12 09/11/2011 Inactive amitriptyline 100 mg tablet RxNorm: 576636 Tablet(s) PO QHS 1 a nd / tabs QHS 06/20/2011 09/11/2011 Inactive buspirone 10 mg tablet RxNorm: 719336 1 Tablet(s) PO BID 06/18/2011 0 09/15/2011 Inactive propranolol 60 mg Tab RxNorm: 938255 1 Tablet(s) PO BID 06/18/2011 Inactive gabapentin 800 mg Tab RxNorm: 115821 1 Tablet(s) PO BID 06/18/2011 Inactive ropinirole 2 mg tablet RxNorm: 138962 1 Tablet(s) PO QHS 05/29/2011 0 08/26/2011 Inactive trimethoprim 100 mg Tab RxNorm: 804708 1 Tablet(s) PO QHS 05/29/2011 07/21/2012 Inactive Endocet 10 mg-325 mg Tab RxNorm: 9679678 1 Tablet(s) PO QID 012 2011 Inactive as needed for severe pain Valium 10 mg Tab RxNorm: 761112 1 Tablet(s) PO QHS N eed to take med as prescribed. this is a 40 day RX. No early fills. 05/17/2011 05/20/2018 Inactive propranolol 60 mg Tab RxNorm: 165038 1 Tablet(s) PO BID 04/16/2011 Inactive Neurontin 800 mg Tab RxNorm: 380962 1 Tablet(s) PO QHS 04/05/201103/2011 Inactive Endocet 10 mg-325 mg Tab RxNorm: 1306432 1 Tablet(s) PO QID 012 05/02/2011 Inactive as needed for severe pain oxycodone-acetaminophen 10 mg-325 mg tablet RxNorm: 2207065 1 Ta blet(s) PO Q4H 03/28/2011 05/19/2012 Inactive Valium 10 mg Tab RxNorm: 151186 1 Tablet(s) PO QHS 03/28/2011 012 Inactive buspirone 10 mg Tab RxNorm: 873189 1 Tablet(s) PO BID 03/27/201106/02 Inactive propranolol 60 mg Tab RxNorm: 057307 1 Tablet(s) PO BID 03/19/2011 Inactive Klor-Con M20 20 mEq Tab RxNorm: 0132857 1 Tablet(s) PO QD 03/19/2011 07/21/2012 Inactive Aricept 10 mg Tab RxNorm: 666885 1 Tablet(s) PO QD 02/27/2011 012 Inactive propranolol 60 mg Tab RxNorm: 521653 1 Tablet(s) PO BID 02/19/2011 Inactive omeprazole 40 mg capsule,delayed release RxNorm: 954306 1 Capsu le(s) PO BID 01/24/2011 05/23/2011 Inactive clindamycin 300 mg capsule RxNorm: 422760 1 Capsule(s) PO TID 01/2402/02/2011 Inactive propranolol 60 mg Tab RxNorm: 500327 1 Tablet(s) PO BID 01/22/2011 No Stop Date Active nystatin 100,000 unit/g Topical Cream RxNorm: 097266 Applicatio n TOP BID 01/15/2011 01/14/2011 Inactive to rash for 2-4 week s Diflucan 200 mg Tab RxNorm: 282989 1 Tablet(s) PO QD 01/15/201101/28 Inactive buspirone 10 mg Tab RxNorm: 597868 1 Tablet(s) PO BID 01/08/201103/05 Inactive Valium 10 mg Tab RxNorm: 315640 1 Tablet(s) PO QHS 01/05/2011 012 Inactive Diflucan 200 mg Tab RxNorm: 496131 1 Tablet(s) PO QD 01/01/201101/14 Inactive Diflucan 200 mg Tab RxNorm: 074564 1 Tablet(s) PO QD 12/18/201012/31 Inactive Valium 10 mg Tab RxNorm: 283707 1 Tablet(s) PO QHS 12/12/2010 011 Inactive Diflucan 200 mg Tab RxNorm: 156320 1 Tablet(s) PO QD 12/07/201012/18 Inactive Aricept 10 mg Tab RxNorm: 827056 1 Tablet(s) PO QD 11/20/2010 011 Inactive ropinirole 1 mg Tab RxNorm: 350056 1 Tablet(s) PO QHS 11/16/201005/03 Inactive enalapril maleate 5 mg Tab RxNorm: 642390 1 Tablet(s) PO QD 011 05/20/2018 Inactive buspirone 10 mg Tab RxNorm: 077660 1 Tablet(s) PO BID 11/16/201012/02 Inactive Valium 10 mg Tab RxNorm: 690786 1 Tablet(s) PO QHS 11/07/2010 011 Inactive Pyridium 100 mg Tab RxNorm: 2701440 1 Tablet(s) PO TID 11/02/201004/2010 Inactive Macrobid 100 mg Cap RxNorm: 8680306 1 Capsule(s) PO BID 11/02/2010 Inactive buspirone 10 mg Tab RxNorm: 166993 1 Tablet(s) PO QHS 10/18/201005/02 Inactive propranolol 60 mg Tab RxNorm: 579070 1 Tablet(s) PO BID 09/18/2010 Inactive Valium 10 mg Tab RxNorm: 933151 1 Tablet(s) PO QHS 09/05/2010 011 Inactive Aricept 10 mg Tab RxNorm: 729387 1 Tablet(s) PO QD 08/14/2010 011 Inactive Valium 10 mg Tab RxNorm: 722712 1 Tablet(s) PO QHS 06/26/2010 011 Inactive ropinirole 1 mg Tab RxNorm: 040532 1 Tablet(s) PO QHS 06/19/201010/02 Inactive omeprazole 40 mg Cap, delayed release RxNorm: 233095 1 Capsule( s) PO QD 06/07/2010 10/04/2010 Inactive Endocet 10 mg-325 mg Tab RxNorm: 3666405 1 Tablet(s) PO QID as needed for severe pain 06/07/2010 03/07/2011 Inactive Endocet 10 mg-325 mg Tab RxNorm: 0054486 1 Tablet(s) PO QID as needed for severe pain 05/04/2010 06/02/2010 Inactive Valium 10 mg Tab RxNorm: 268120 1 Tablet(s) PO QHS 05/01/2010 011 Inactive propranolol 60 mg Tab RxNorm: 289302 1 Tablet(s) PO BID 04/03/2010 Inactive Valium 10 mg Tab RxNorm: 223220 1 Tablet(s) PO QHS 03/28/2010 011 Inactive omeprazole 40 mg Cap, Delayed Release RxNorm: 838303 1 Capsule( s) PO QD 03/28/2010 06/06/2010 Inactive Endocet 10 mg-325 mg Tab RxNorm: 1647599 1 Tablet(s) PO QID prn ari n 03/27/2010 05/20/2018 Inactive Valium 10 mg Tab RxNorm: 093427 1 Tablet(s) PO QHS 02/20/2010 011 Inactive Diflucan 100 mg Tab RxNorm: 436132 1 Tablet(s) PO BID 01/23/201003/2009 Inactive Diflucan 100 mg Tab RxNorm: 773406 1 Tablet(s) PO BID 01/05/201001/02 Inactive Aricept 10 mg Tab RxNorm: 701147 1 Tablet(s) PO QD 12/01/2009 011 Inactive OxyContin 20 mg 12 hr Tab RxNorm: 3430692 1 Tablet(s) PO BID 200904/05/2010 Inactive oxycodone-acetaminophen 10 mg-325 mg Tab RxNorm: 1293895 1 Table t(s) PO Q4H 11/22/2009 11/26/2009 Inactive Phenergan 25 mg Tab RxNorm: 156343 1 Tablet(s) PO PRN MIGRAINE 11/0303/07/2011 Inactive Demerol 100 mg Tab RxNorm: 800070 1 Tablet(s) PO PRN MIGRAINE 11/2203/07/2011 Inactive Oxycodone-Acetaminophen 10 mg-325 mg Tab RxNorm: 6892683 1 Table t(s) PO Q4H 10/11/2009 10/15/2009 Inactive Percocet 10 mg-325 mg Tab RxNorm: 7042576 1 Tablet(s) PO Q4H 200910/24/2009 Inactive propranolol 60 mg Tab RxNorm: 397857 1 Tablet(s) PO BID 08/29/2009 Inactive Valium 10 mg Tab RxNorm: 580822 1 Tablet(s) PO QHS 08/16/2009 010 Inactive Keflex 500 mg Cap RxNorm: 464571 1 Capsule(s) PO BID 07/25/200907/31 Inactive Hydroxyzine 25 mg Tab RxNorm: 015583 1 Tablet(s) PO TID 07/25/2009 Inactive Prednisone 20 mg Tab RxNorm: 620447 1 Tablet(s) PO BID 07/25/2009 Inactive Demerol 100 mg Tab RxNorm: 280838 1 Tablet(s) PO PRN MIGRAINE 07/25 No Stop Date Active Ropinirole 1 mg Tab RxNorm: 412088 1 Tablet(s) PO HS 07/20/200902/14 Inactive Valium 10 mg Tab RxNorm: 256166 1 Tablet(s) PO QHS 07/18/2009 010 Inactive Endocet 10 mg-325 mg Tab RxNorm: 0890021 1 Tablet(s) PO TID 010 07/07/2009 Inactive Demerol 100 mg Tab RxNorm: 603369 1 Tablet(s) PO PRN MIGRAINE 06/08 No Stop Date Active Ropinirole 1 mg Tab RxNorm: 331237 1 Tablet(s) PO HS 05/16/200907/14 Inactive ipratropium-albuterol 0.5 mg-3 mg(2.5 mg base)/3 mL ne bulization soln RxNorm: 6366151 1 Unit Dose INH Q4H as needed No Start Date Active MagOx 400 mg (241.3 mg magnesium) tablet RxNorm: 952507 1 Table t(s) PO BID No Start Date Active Vitamin B12 1000mcg Tablet RxNorm: 1 Tablet(s) PO QD No Start Date Active Vitamin D3 5,000 unit tablet RxNorm: 084107 1 Tablet(s) PO QD No Star t Date Active Tylenol Arthritis Pain 650 mg tablet,extended release RxNorm : 7582987 1 Tablet(s) PO Q4H No Start Date Active Lotrimin AF 2 % topical powder RxNorm: 459487 1 Application TOP BID No Start Date Active enalapril maleate 5 mg Tab RxNorm: 034315 1 Tablet(s) PO QD No Star t Date 07/20/2012 Inactive Demerol 100 mg Tab RxNorm: 393030 Tablet(s) PO PRN MIGRAINE No Star t Date 06/02/2009 Inactive metformin 500 mg tablet RxNorm: 533346 1 Tablet(s) PO QD No Start D ate 04/05/2013 Inactive Breo Ellipta 100 mcg-25 mcg/dose powder for inhalation RxNor m: 3848534 1 Puff(s) INH BID No Start Date 01/04/2016 Inactive Mag-Oxide 400 mg Tab RxNorm: 098947 1 Tablet(s) PO QD No Start Date 0 07/21/2012 Inactive Cipro 500 mg Tab RxNorm: 284845 1 Tablet(s) PO QD No Start Date 04/05 Inactive Ativan 0.5 mg tablet RxNorm: 635678 1 Tablet(s) PO TID as needed No Start Date 05/06/2019 Inactive melatonin 3 mg tablet RxNorm: 033528 2 Tablet(s) PO QHS No Start Da te 08/19/2018 Inactive buspirone 10 mg Tab RxNorm: 926585 1 Tablet(s) PO QD No Start Date Inactive sucralfate 100 mg/mL Oral Susp RxNorm: 159892 2 Teaspoon(s) PO QID No Start Date 07/21/2012 Inactive hydrocodone 5 mg-acetaminophen 325 mg tablet RxNorm: 276663 1 Tablet(s) PO Q4H as needed No Start Date 08/19/2018 Inactive Amaryl 2 mg tablet RxNorm: 156509 1 Tablet(s) PO BID No Start Date Inactive OxyContin 20 mg 12 hr Tab RxNorm: 8737808 1 Tablet(s) PO BID No Sta rt Date 11/27/2009 Inactive propranolol 40 mg tablet RxNorm: 891591 1 Tablet(s) PO QID No Start Date 01/19/2018 Inactive Trazadone 150 mg Tablet RxNorm: 1-2 Tablet(s) PO QHS prn sleep No Start Date 08/09/2010 Inactive propranolol 60 mg Tab RxNorm: 113577 1/2 Tablet(s) PO BID No Start Date 01/21/2011 Inactive insulin NPH and regular human subcutaneous RxNorm: 9809678 subcu taneous No Start Date 11/20/2018 Inactive Ativan 0.5 mg tablet RxNorm: 290583 1 Tablet(s) PO QID No Start Date 06/18/2016 Inactive Vasotec 5 mg Tab RxNorm: 339414 1 Tablet(s) PO BID No Start Date 06/2011 Inactive Toprol XL 50 mg tablet,extended release RxNorm: 988744 1 Tablet (s) PO BID No Start Date 04/05/2013 Inactive Ativan 0.5 mg tablet RxNorm: 684589 1 Tablet(s) PO TID No Start Date 05/25/2016 Inactive Klor-Con M20 20 mEq Tab RxNorm: 7511408 1 Tablet(s) PO QD No Start Date 03/19/2011 Inactive sumatriptan 100 mg tablet RxNorm: 745069 1 Tablet(s) PO at headache onset--repeat in 2hrs if remains No Start Date 07/21/2012 Inactive propranolol 60 mg Tab RxNorm: 333705 1 Tablet(s) PO BID No Start Da te 08/28/2009 Inactive Cholestyramine Light 4 gram Oral Powder RxNorm: 6698772 1 Unit Dose PO QD in water No Start Date 07/21/2012 Inactive nystatin 100,000 unit/g Topical Powder RxNorm: 993052 Applicati on TOP BID No Start Date 07/21/2012 Inactive vitamin [id number] acid sublingual RxNorm: sublingual No Start Date 07/05/2013 Inactive cyclobenzaprine 5 mg tablet RxNorm: 329124 1/2-1 Tablet (s) PO TID as needed for muscle spasm No Start Date 07/18/2017 Inactive tramadol 50 mg tablet RxNorm: 217908 2 Tablet(s) PO TID as need ed for pain No Start Date 09/01/2014 Inactive aspirin 81 mg Tab RxNorm: 381726 1 Tablet(s) PO QOD No Start Date 04/2013 Inactive Vitamin B12 1000mcg Tablet RxNorm: 1 Tablet(s) PO QD No Start Date 07/18/2017 Inactive cholestyramine (with sugar) 4 gram oral powder RxNorm: 60527 3 1 Unit(s) PO QD as needed No Start Date 05/20/2018 Inactive ProAir HFA 90 mcg/Actuation Aerosol Inhaler RxNorm: 479056 2 Puff(s) INH Q4H prn shortness of breath No Start Date 07/21/2012 Inactive pravastatin 10 mg Tab RxNorm: 005642 1 Tablet(s) PO QD No Start Date 07/21/2012 Inactive gabapentin 800 mg Tab RxNorm: 844506 1 Tablet(s) PO BID No Start Da te 06/03/2011 Inactive Endocet 10 mg-325 mg Tab RxNorm: 2918638 1 Tablet(s) PO TID No Star t Date 06/02/2009 Inactive Naproxen 500 mg Tab RxNorm: 260887 1 Tablet(s) PO BID No Start Date 0 04/05/2010 Inactive Valium 10 mg Tab RxNorm: 061941 1 Tablet(s) PO BID No Start Date 07/04 Inactive enalapril maleate 5 mg Tab RxNorm: 516458 1 Tablet(s) PO QD No Star t Date 11/15/2010 Inactive doxepin 10 mg capsule RxNorm: 1206114 2 Capsule(s) PO QHS No Start Date 09/17/2018 Inactive MS Contin 15 mg Tab RxNorm: 585626 1 Tablet(s) PO BID No Start Date 0 09/18/2010 Inactive buspirone 5 mg tablet RxNorm: 514075 1 Tablet(s) PO TID No Start Da te 12/01/2013 Inactive [place] 3 Fish Oil Cap RxNorm: 1 Capsule(s) PO QD No Start Date 07/03 Inactive enalapril maleate 5 mg Tab RxNorm: 890957 1/2 Tablet(s) PO QD No St art Date 03/07/2011 Inactive Lyrica 75 mg capsule RxNorm: 690706 1 Capsule(s) PO QHS No Start Da te 02/08/2014 Inactive Lopressor 100 mg tablet RxNorm: 684871 1 Tablet(s) PO BID No Start Date 06/08/2018 Inactive Lantus Solostar U-100 Insulin 100 unit/mL (3 mL) subcu taneous pen RxNorm: 995668 45 Unit(s) SQ QAM No Start Date 05/20/2018 Inactive aspirin 81 mg tablet RxNorm: 136240 1 Tablet(s) PO QD No Start Date 0 09/14/2015 Inactive diltiazem CD 240 mg capsule,extended release 24 hr RxNorm: 8 01611 1 Capsule(s) PO QD No Start Date 05/25/2019 Inactive insulin NPH isophane U-100 human subcutaneous RxNorm: 786396 beckwith bcutaneous No Start Date 04/20/2019 Inactive sumatriptan 100 mg tablet RxNorm: 841396 1 Tablet(s) PO at headache onset. May repeat 1 in two hours if headache remains. Max of 2 per 24 hours No Start Date 04/01/2018 Inactive gabapentin 300 mg capsule RxNorm: 564857 1 Capsule(s) PO QHS No Sta rt Date 02/04/2018 Inactive Topamax 25 mg Tab RxNorm: 346011 Oral No Start Date 03/07/2011 In active Senokot-S 8.6 mg-50 mg Tab RxNorm: 8015315 1 Tablet(s) PO QD No Sta rt Date 03/07/2011 Inactive metformin ER 500 mg 24 hr tablet,extended release RxNorm: 18 12029 1 Tablet(s) PO QD No Start Date 05/20/2018 Inactive Symbicort 80 mcg-4.5 mcg/actuation HFA Aerosol Inhaler RxNor m: 8708005 2 Puff(s) INH BID No Start Date 04/05/2013 Inactive metoprolol tartrate 25 mg tablet RxNorm: 270067 1 Tablet(s) PO BID No Start Date 05/20/2019 Inactive propranolol 60 mg Tab RxNorm: 929137 1/2 Tablet(s) PO BID No Start Date 07/21/2012 Inactive metformin ER 500 mg 24 hr tablet,extended release RxNorm: 18 25281 2 Tablet(s) PO QD No Start Date 12/16/2017 Inactive Insulin Syringe 1 mL 29 gauge x 1/2" RxNorm: 2 s yringes daily with insulin Dx: E11.65 No Start Date 10/07/2018 Inactive Amitriptyline 75 mg Tab RxNorm: 258267 1 Tablet(s) PO QHS No Start Date 10/23/2009 Inactive donepezil 10 mg Tab RxNorm: 807781 1 Tablet(s) PO QD No Start Date Inactive Lantus Solostar U-100 Insulin 100 unit/mL (3 mL) subcu taneous pen RxNorm: 016689 36 Unit(s) SQ QAM No Start Date 12/24/2017 Inactive Miacalcin 200 unit/Actuation Nasal [place] Aerosol RxNorm: 261 204 1 [place] NASAL QD Alternate nostrils each day No Start Date 04/05/2010 Inactive Amitriptyline 150 mg Tab RxNorm: 388623 1 Tablet(s) PO QHS No Start Date 01/04/2010 Inactive Bystolic 5 mg tablet RxNorm: 362694 1 Tablet(s) PO QD No Start Date 0 08/13/2012 Inactive Aricept 10 mg Tab RxNorm: 292712 1 Tablet(s) PO QD No Start Date 11/03 Inactive Lantus Solostar U-100 Insulin 100 unit/mL (3 mL) subcu taneous pen RxNorm: 409483 50 Unit(s) SQ QAM No Start Date 08/27/2018 Inactive albuterol sulfate 2.5 mg/3 mL (0.083 %) Neb Solution RxNorm: 358193 1 Unit Dose INH QID as needed No Start Date 08/23/2015 Inactive Symbicort 160 mcg-4.5 mcg/actuation HFA Aerosol Inhaler RxNo rm: 4349536 2 Puff(s) INH BID No Start Date 12/03/2011 Inactive Savella 50 mg Tab RxNorm: 108294 1 Tablet(s) PO BID No Start Date 04/2010 Inactive amitriptyline 100 mg Tab RxNorm: 652683 1 1/2 Tablet(s) PO QHS No S tart Date 06/19/2011 Inactive nystatin 100,000 unit/g Topical Cream RxNorm: 271698 Ap plication TOP BID to rash for 2-4 weeks No Start Date 01/14/2011 Inactive Trelegy Ellipta 100 mcg-62.5 mcg-25 mcg powder for inhalatio n RxNorm: 5876634 1 Puff(s) INH QD No Start Date 12/16/2017 Inactive Lyrica 150 mg capsule RxNorm: 228447 1 Capsule(s) PO QHS No Start D ate 12/04/2015 Inactive sennosides 8.6 mg tablet RxNorm: 473414 1 Tablet(s) PO BID No Start Date 09/07/2018 Inactive metformin ER 500 mg tablet,extended release 24 hr RxNorm: 86 0975 1 Tablet(s) PO QD No Start Date 10/22/2017 Inactive Fish Oil 1,000 mg Cap RxNorm: 1 Capsule(s) PO QD No Start Date 06/2011 Inactive Zyrtec 10 mg Tab RxNorm: 3121800 1 Tablet(s) PO QD No Start Date 07/03 Inactive albuterol sulfate HFA 90 mcg/actuation aerosol inhaler RxNor m: 3098414 2 Puff(s) INH Q4H as needed for cough No Start Date 09/30/2013 Inactive trazodone 150 mg tablet RxNorm: 276934 1 Tablet(s) PO QHS No Start Date 07/21/2012 Inactive Spiriva with HandiHaler 18 mcg & inhalation capsules RxNorm: 013076 1 Capsule(s) INH QD No Start Date 04/05/2013 Inactive Coreg 3.125 mg Tab RxNorm: 934837 1 Tablet(s) PO BID No Start Date Inactive Phenergan 25 mg Tab RxNorm: 673594 Tablet(s) PO PRN MIGRAINE No Sta rt Date 11/21/2009 Inactive Vitamin D 50,000 unit Cap RxNorm: 7775196 1 Capsule(s) PO QW No Sta rt Date 03/07/2011 Inactive Januvia 100 mg tablet RxNorm: 123146 1 Tablet(s) PO QD No Start Date 10/25/2015 Inactive Eliquis 5 mg tablet RxNorm: 4135352 1 Tablet(s) PO BID No Start Date 08/19/2018 Inactive Advair Diskus 500 mcg-50 mcg/Dose for Inhalation RxNorm: 785761 1 INH BID No Start Date 07/21/2012 Inactive Vitamin D3 5,000 unit tablet RxNorm: 454316 1 Tablet(s) PO QD No St art Date 07/18/2017 Inactive Amaryl 2 mg tablet RxNorm: 076605 1 Tablet(s) PO QD No Start Date 06/2015 Inactive Actos 30 mg tablet RxNorm: 958285 1 Tablet(s) PO QD No Start Date Inactive promethazine 25 mg tablet RxNorm: 574252 1 Tablet(s) PO Q4H prn N/V No Start Date 07/21/2012 Inactive ProAir HFA 90 mcg/actuation Aerosol Inhaler RxNorm: 810106 2 Puff(s) INH Q4H prn dyspnea No Start Date 07/21/2012 Inactive Dexilant 60 mg Capsule RxNorm: 596296 1 Capsule(s) PO QD No Start D ate 01/27/2012 Inactive Lantus Solostar U-100 Insulin 100 unit/mL (3 mL) subcu taneous pen RxNorm: 095012 38 Unit(s) SQ QAM No Start Date 05/20/2018 Inactive Valium 10 mg Tab RxNorm: 839332 1 Tablet(s) PO QHS AND PRN No Start Date 10/24/2009 Inactive ZOFRAN ODT 8 mg disintegrating tablet RxNorm: 844627 1 Tablet(s ) PO Q6H No Start [...] Date S ervice Location MICROALBUMIN URINE RANDOM 99147 MICRL MG/L 14.9 MG/L Unknown MICROALBUMIN URINE RANDOM 31535 XM.ALB/CRE 6.1 MG/GCR Unknown MICROALBUMIN URINE RANDOM 82553 CREAT MG/D 243 MG/DL Unknown MICROALBUMIN URINE RANDOM 70488 CRE/100 2.43 G/L 03/05 Unknown PROTEIN/CREAT URINE WITH RATIO 23895|96767 PROT R U 14 MG/D L 04/01/2014 Unknown PROTEIN/CREAT URINE WITH RATIO 00682|48579 CREAT R U 254 MG/ DL 04/01/2014 Unknown PROTEIN/CREAT URINE WITH RATIO 26067|58768 XRATIO P/C 55 MG/ G 04/01/2014 Unknown URINALYSIS 11437 PROTEIN UR NEG 04/28/2010 Unknown URINALYSIS 46255 HEMGLBN UR NEG 04/28/2010 Unknown URINALYSIS 84688 GLUCOSE UR NEG 04/28/2010 Unknown URINALYSIS 25646 KETONES UR NEG 04/28/2010 Unknown URINALYSIS 65656 PH U 5.5 04/28/2010 Unknown URINALYSIS 29539 SP GR U 1.025 04/28/2010 Unknown URINALYSIS 33643 BILRUBN UR NEG 04/28/2010 Unknown URINALYSIS 94797 LEUKO UR 2+ 04/28/2010 Unknown URINALYSIS 10875 NITRITE UR NEG 04/28/2010 Unknown MICR CUL? [id number] WBC/HPF 6-10 04/28/2010 Unknown MICR CUL? [id number] RBC/HPF 0-5 04/28/2010 Unknown MICR CUL? [id number] HYAL CAST 16-25 04/28/2010 Unknown MICR CUL? [id number] SP TO YOLIE? NO 04/28/2010 Unknown MICR CUL? [id number] APPEAR UR NORMAL 04/28/2010 Unknown MICR CUL? [id number] SQ EPI/LPF FEW 04/28/2010 Unknown Procedures Procedure Codes Date URINALYSIS NONAUTO W/O SCOPE CPT-4: 44835 04/16/2019 URINE CULTURE/ COLONY COUNT CPT-4: 81558 04/16/2019 CEFTRIAXONE SODIUM INJECTION CPT-4: J0696 04/16/2019 THER/PROPH/DIAG INJ SC/IM CPT-4: 22441 04/16/2019 DRAIN/INJECT JOINT/BURSA CPT-4: 60701 01/22/2019 TRIAMCINOLONE ACET INJ NOS CPT-4: J3301 01/22/2019 DEXAMETHASONE SODIUM PHOS CPT-4: J1100 01/22/2019 URINE CULTURE/ COLONY COUNT CPT-4: 04492 01/07/2019 URINALYSIS NONAUTO W/O SCOPE CPT-4: 08902 01/07/2019 CEFTRIAXONE SODIUM INJECTION CPT-4: J0696 01/07/2019 THER/PROPH/DIAG INJ SC/IM CPT-4: 21902 01/07/2019 FLU VACC PRSV FREE INC ANTIG 65 AND OLDER CPT-4: 07131 12/24/2018 FLU VACC PRSV FREE INC ANTIG 65 AND OLDER CPT-4: 47811 12/24/2018 ADMIN INFLUENZA VIRUS VAC CPT-4: G0008 12/24/2018 THER/PROPH/DIAG INJ SC/IM CPT-4: 54572 11/04/2018 KETOROLAC TROMETHAMINE INJ CPT-4: J1885 11/04/2018 PROMETHAZINE HCL INJECTION CPT-4: J2550 11/04/2018 PPPS, subseq visit CPT-4: G0439 09/18/2018 THER/PROPH/DIAG INJ SC/IM CPT-4: 19423 04/01/2018 KETOROLAC TROMETHAMINE INJ CPT-4: J1885 04/01/2018 PROMETHAZINE HCL INJECTION CPT-4: J2550 04/01/2018 URINE CULTURE/ COLONY COUNT CPT-4: 99487 03/17/2018 URINALYSIS NONAUTO W/O SCOPE CPT-4: 08811 03/17/2018 FLU VACC PRSV FREE INC ANTIG 65 AND OLDER CPT-4: 54170 12/17/2017 PNEUMOCOCCAL VACC 23 RANDALL IM CPT-4: 26595 12/17/2017 ADMIN INFLUENZA VIRUS VAC CPT-4: G0008 12/17/2017 ADMIN PNEUMOCOCCAL VACCINE CPT-4: G0009 12/17/2017 PPPS, subseq visit CPT-4: G0439 09/17/2017 THER/PROPH/DIAG INJ SC/IM CPT-4: 65237 08/26/2017 KETOROLAC TROMETHAMINE INJ CPT-4: J1885 08/26/2017 PROMETHAZINE HCL INJECTION CPT-4: J2550 08/26/2017 URINALYSIS NONAUTO W/O SCOPE CPT-4: 03456 07/19/2017 URINE CULTURE/ COLONY COUNT CPT-4: 31196 07/19/2017 CEFTRIAXONE SODIUM INJECTION CPT-4: J0696 07/19/2017 THER/PROPH/DIAG INJ SC/IM CPT-4: 67930 07/19/2017 THER/PROPH/DIAG INJ SC/IM CPT-4: 93968 07/19/2017 TRIAMCINOLONE ACET INJ NOS CPT-4: J3301 07/19/2017 PRESCRIP TRANSMIT VIA ERX SY CPT-4: G8553 05/07/2017 PRESCRIP TRANSMIT VIA ERX SY CPT-4: G8553 02/22/2017 PRESCRIP TRANSMIT VIA ERX SY CPT-4: G8553 01/23/2017 FLU VACC PRSV FREE INC ANTIG 65 AND OLDER CPT-4: 06655 12/20/2016 PNEUMOCOCCAL VACC 13 RANDALL IM CPT-4: 99359 12/20/2016 ADMIN INFLUENZA VIRUS VAC CPT-4: G0008 12/20/2016 ADMIN PNEUMOCOCCAL VACCINE CPT-4: G0009 12/20/2016 URINALYSIS NONAUTO W/O SCOPE CPT-4: 84042 10/08/2016 URINE CULTURE/ COLONY COUNT CPT-4: 78467 10/08/2016 PRESCRIP TRANSMIT VIA ERX SY CPT-4: G8553 10/08/2016 PRESCRIP TRANSMIT VIA ERX SY CPT-4: G8553 09/19/2016 PRESCRIP TRANSMIT VIA ERX SY CPT-4: G8553 08/20/2016 PRESCRIP TRANSMIT VIA ERX SY CPT-4: G8553 02/29/2016 KETOROLAC TROMETHAMINE INJ CPT-4: J1885 02/02/2016 THER/PROPH/DIAG INJ SC/IM CPT-4: 13913 02/02/2016 PROMETHAZINE HCL INJECTION CPT-4: J2550 02/02/2016 PRESCRIP TRANSMIT VIA ERX SY CPT-4: G8553 02/02/2016 FLU VACC PRSV FREE INC ANTIG 65 AND OLDER CPT-4: 14096 01/05/2016 PPPS, subseq visit CPT-4: G0439 01/05/2016 ADMIN INFLUENZA VIRUS VAC CPT-4: G0008 01/05/2016 URINE CULTURE/ COLONY COUNT CPT-4: 45858 12/05/2015 URINALYSIS NONAUTO W/O SCOPE CPT-4: 68250 12/05/2015 PRESCRIP TRANSMIT VIA ERX SY CPT-4: G8553 12/05/2015 PRESCRIP TRANSMIT VIA ERX SY CPT-4: G8553 10/26/2015 URINALYSIS NONAUTO W/O SCOPE CPT-4: 05185 10/05/2015 URINE CULTURE/ COLONY COUNT CPT-4: 10681 10/05/2015 PRESCRIP TRANSMIT VIA ERX SY CPT-4: G8553 10/05/2015 SERVICE REQUIRED FOR PMD CPT-4: G0372 09/15/2015 PRESCRIP TRANSMIT VIA ERX SY CPT-4: G8553 09/15/2015 SPECIAL REPORTS OR FORMS CPT-4: 20065 08/25/2015 PRESCRIP TRANSMIT VIA ERX SY CPT-4: G8553 07/05/2015 URINALYSIS NONAUTO W/O SCOPE CPT-4: 68225 03/30/2015 ASSAY, GLUCOSE, BLOOD QUANT CPT-4: 05642 03/30/2015 URINE CULTURE/ COLONY COUNT CPT-4: 64770 03/30/2015 PRESCRIP TRANSMIT VIA ERX SY CPT-4: G8553 03/30/2015 PRESCRIP TRANSMIT VIA ERX SY CPT-4: G8553 02/03/2015 FLU VACC PRSV FREE INC ANTIG 65 AND OLDER CPT-4: 77583 12/29/2014 ADMIN INFLUENZA VIRUS VAC CPT-4: G0008 12/29/2014 PRESCRIP TRANSMIT VIA ERX SY CPT-4: G8553 12/29/2014 PRESCRIP TRANSMIT VIA ERX SY CPT-4: G8553 09/02/2014 PROTEIN/CREAT URINE WITH RATIO CPT-4: 26758|54985 5 MICROALBUMIN QUANTITATIVE CPT-4: 02118 04/01/2014 PRESCRIP TRANSMIT VIA ERX SY CPT-4: G8553 03/16/2014 PRESCRIP TRANSMIT VIA ERX SY CPT-4: G8553 03/09/2014 THER/PROPH/DIAG INJ SC/IM CPT-4: 55540 03/01/2014 TRIAMCINOLONE ACET INJ NOS CPT-4: J3301 03/01/2014 PRESCRIP TRANSMIT VIA ERX SY CPT-4: G8553 02/09/2014 URINE CULTURE/ COLONY COUNT CPT-4: 86781 10/30/2013 URINALYSIS NONAUTO W/O SCOPE CPT-4: 54437 10/21/2013 URINE CULTURE/ COLONY COUNT CPT-4: 82479 10/21/2013 DESTRUCT PREMALG LESION (Cryosurgery) CPT-4: 52504 PRESCRIP TRANSMIT VIA ERX SY CPT-4: G8553 10/05/2013 URINALYSIS NONAUTO W/O SCOPE CPT-4: 13595 08/04/2013 URINE CULTURE/ COLONY COUNT CPT-4: 52323 08/04/2013 PRESCRIP TRANSMIT VIA ERX SY CPT-4: G8553 08/04/2013 THER/PROPH/DIAG INJ SC/IM CPT-4: 85441 07/13/2013 TRIAMCINOLONE ACET INJ NOS CPT-4: J3301 07/13/2013 PRESCRIP TRANSMIT VIA ERX SY CPT-4: G8553 05/27/2013 URINALYSIS NONAUTO W/O SCOPE CPT-4: 45426 05/25/2013 URINE CULTURE/ COLONY COUNT CPT-4: 33257 05/25/2013 THER/PROPH/DIAG INJ SC/IM CPT-4: 36269 05/04/2013 VITAMIN B12 INJECTION CPT-4: J3420 05/04/2013 THER/PROPH/DIAG INJ SC/IM CPT-4: 53141 04/17/2013 VITAMIN B12 INJECTION CPT-4: J3420 04/17/2013 THER/PROPH/DIAG INJ SC/IM CPT-4: 34619 04/17/2013 METHYLPREDNISOLONE 40 MG INJ CPT-4: J1030 04/17/2013 TRIAMCINOLONE ACET INJ NOS CPT-4: J3301 04/17/2013 URINALYSIS NONAUTO W/O SCOPE CPT-4: 81871 04/06/2013 URINE CULTURE/ COLONY COUNT CPT-4: 08485 04/06/2013 PRESCRIP TRANSMIT VIA ERX SY CPT-4: G8553 04/06/2013 KETOROLAC TROMETHAMINE INJ CPT-4: J1885 06/25/2012 PROMETHAZINE HCL INJECTION CPT-4: J2550 06/25/2012 THER/PROPH/DIAG INJ SC/IM CPT-4: 92331 06/25/2012 THER/PROPH/DIAG INJ SC/IM CPT-4: 59427 06/24/2012 METHYLPREDNISOLONE 40 MG INJ CPT-4: J1030 06/24/2012 TRIAMCINOLONE ACET INJ NOS CPT-4: J3301 06/24/2012 URINE CULTURE/ COLONY COUNT CPT-4: 48779 06/24/2012 THER/PROPH/DIAG INJ SC/IM CPT-4: 15519 05/20/2012 KETOROLAC TROMETHAMINE INJ CPT-4: J1885 05/20/2012 THER/PROPH/DIAG INJ SC/IM CPT-4: 78921 05/20/2012 PROMETHAZINE HCL INJECTION CPT-4: J2550 05/20/2012 DRAIN/INJECT JOINT/BURSA CPT-4: 77958 02/13/2012 METHYLPREDNISOLONE 40 MG INJ CPT-4: J1030 02/13/2012 TRIAMCINOLONE ACET INJ NOS CPT-4: J3301 02/13/2012 THER/PROPH/DIAG INJ SC/IM CPT-4: 03996 11/14/2011 METHYLPREDNISOLONE 40 MG INJ CPT-4: J1030 11/14/2011 TRIAMCINOLONE ACET INJ NOS CPT-4: J3301 11/14/2011 THER/PROPH/DIAG INJ SC/IM CPT-4: 24989 09/12/2011 KETOROLAC TROMETHAMINE INJ CPT-4: J1885 09/12/2011 THER/PROPH/DIAG INJ SC/IM CPT-4: 76135 08/09/2011 METHYLPREDNISOLONE 40 MG INJ CPT-4: J1030 08/09/2011 TRIAMCINOLONE ACET INJ NOS CPT-4: J3301 08/09/2011 URINE CULTURE/ COLONY COUNT CPT-4: 38664 07/03/2011 URINE CULTURE/ COLONY COUNT CPT-4: 00138 06/04/2011 THER/PROPH/DIAG INJ SC/IM CPT-4: 15963 05/03/2011 METHYLPREDNISOLONE 40 MG INJ CPT-4: J1030 05/03/2011 TRIAMCINOLONE ACET INJ NOS CPT-4: J3301 05/03/2011 URINALYSIS NONAUTO W/O SCOPE CPT-4: 59793 01/24/2011 URINE CULTURE/ COLONY COUNT CPT-4: 36256 01/24/2011 FLUZONE, 5ML (Medicare) CPT-4: Q2038 01/02/2011 ADMIN INFLUENZA VIRUS VAC CPT-4: G0008 01/02/2011 ASSAY, GLUCOSE, BLOOD QUANT CPT-4: 66535 12/07/2010 URINE CULTURE/ COLONY COUNT CPT-4: 75420 11/02/2010 THER/PROPH/DIAG INJ SC/IM CPT-4: 48402 10/18/2010 METHYLPREDNISOLONE 40 MG INJ CPT-4: J1030 10/18/2010 TRIAMCINOLONE ACET INJ NOS CPT-4: J3301 10/18/2010 TRIAMCINOLONE ACET INJ NOS CPT-4: J3301 05/11/2010 METHYLPREDNISOLONE 40 MG INJ CPT-4: J1030 05/11/2010 THER/PROPH/DIAG INJ SC/IM CPT-4: 07772 05/11/2010 TRIAMCINOLONE ACET INJ NOS CPT-4: J3301 02/09/2010 METHYLPREDNISOLONE 40 MG INJ CPT-4: J1030 02/09/2010 THER/PROPH/DIAG INJ SC/IM CPT-4: 36460 02/09/2010 SERVICE REQUIRED FOR PMD CPT-4: G0372 02/09/2010 FLU VACCINE 3 YRS & > IM UP 64 CPT-4: 12923 0 PNEUMOCOCCAL VACC 23 RANDALL IM CPT-4: 34969 12/07/2009 ADMIN INFLUENZA VIRUS VAC CPT-4: G0008 12/07/2009 ADMIN PNEUMOCOCCAL VACCINE CPT-4: G0009 12/07/2009 TRIAMCINOLONE ACET INJ NOS CPT-4: J3301 05/26/2009 THER/PROPH/DIAG INJ SC/IM CPT-4: 55747 05/26/2009 METHYLPREDNISOLONE 80 MG INJ CPT-4: J1040 [...] 1: 114/72 Code: 8480-6 BMI: 37.8 Code: 63586-1 Heart Rate 1: 72 bpm Height: 5'3" [...] 1: 106/68 Code: 8480-6 BMI: 35.7 Code: 77528-2 Heart Rate 1: 72 bpm Height: 5'4" Respiratory Rate: 20 bpm SpO2: 98% Tempera ture: 36.7 (C) / 98.0 (F) Weight: 208 lbs 04/16/2018 Blood Pressure 1: 132/82 Code: 8480-6 BMI: 37.9 Code: 36493-8 Heart Rate 1: 72 bpm Height: 5'4" Respiratory Rate: 20 bpm SpO2: 96% Tempera ture: 37.1 (C) / 98.8 (F) Weight: 221 lbs 04/01/2018 Blood Pressure 1: 150/90 Code: 8480-6 Heart Rate 1: 72 bpm Respiratory Rate: 22 bpm SpO2: 95% Temperature: 36.4 (C) / 97.6 (F) We ight: 216 lbs 03/06/2018 Blood Pressure 1: 126/78 Code: 8480-6 BMI: 37.4 Code: 11922-6 Heart Rate 1: 68 bpm Height: 5'4" [...] ight: 222 lbs 12/25/2017 BMI: 37.8 Code: 18148-8 Heart Rate 1: 76 bpm Height: 5 '4" Respiratory Rate: 20 bpm SpO2: 96% Temperature: 37.3 (C) / 99.2 (F) Weight: 220 lbs 12/17/2017 Blood Pressure 1: 132/78 Code: 8480-6 BMI: 37.2 Code: 58273-0 Heart Rate 1: 88 bpm Height: 5'4" Respiratory Rate: 20 bpm SpO2: 96% Tempera ture: 37.3 (C) / 99.2 (F) Weight: 217 lbs 10/30/2017 Blood Pressure 1: 114/68 Code: 8480-6 BMI: 36.4 Code: 80425-0 Heart Rate 1: 72 bpm Height: 5'4" Respiratory Rate: 22 bpm SpO2: 96% Tempera ture: 36.8 (C) / 98.2 (F) Weight: 212 lbs 10/23/2017 Blood Pressure 1: 124/78 Code: 8480-6 Heart Rate 1: 72 bpm Respiratory Rate: 24 bpm SpO2: 94% Temperature: 36.6 (C) / 97.9 (F) We ight: 212 lbs 09/17/2017 Blood Pressure 1: 128/82 Code: 8480-6 BMI: 37.4 Code: 71979-9 Heart Rate 1: 72 bpm Height: 5'4" Respiratory Rate: 20 bpm SpO2: 96% Tempera ture: 37.0 (C) / 98.6 (F) Weight: 218 lbs 07/19/2017 Blood Pressure 1: 136/84 Code: 8480-6 BMI: 36.6 Code: 28649-1 Heart Rate 1: 88 bpm Height: 5'4" Respiratory Rate: 20 bpm SpO2: 97% Tempera ture: 36.7 (C) / 98.0 (F) Weight: 213 lbs 05/29/2017 Blood Pressure 1: 136/82 Code: 8480-6 BMI: 36.7 Code: 40700-6 Heart Rate 1: 72 bpm Height: 5'4" Respiratory Rate: 20 bpm SpO2: 97% Tempera ture: 36.9 (C) / 98.4 (F) Weight: 214 lbs 05/07/2017 Blood Pressure 1: 122/80 Code: 8480-6 BMI: 37.1 Code: 33808-5 Heart Rate 1: 80 bpm Height: 5'4" Respiratory Rate: 24 bpm SpO2: 96% Tempera ture: 36.1 (C) / 97.0 (F) Weight: 216 lbs 03/18/2017 BMI: 36.7 Code: 70537-9 Heart Rate 1: 80 bpm Height: 5 '4" Respiratory Rate: 22 bpm SpO2: 95% Temperature: 36.9 (C) / 98.4 (F) Weight: 214 lbs 02/27/2017 Blood Pressure 1: 146/94 Code: 8480-6 BMI: 36.6 Code: 60979-9 Heart Rate 1: 76 bpm Height: 5'4" Respiratory Rate: 22 bpm SpO2: 97% Tempera ture: 36.6 (C) / 97.9 (F) Weight: 213 lbs 02/22/2017 Blood Pressure 1: 126/90 Code: 8480-6 BMI: 36.4 Code: 71618-4 Heart Rate 1: 84 bpm Height: 5'4" Respiratory Rate: 22 bpm SpO2: 95% Tempera ture: 36.9 (C) / 98.4 (F) Weight: 212 lbs 01/23/2017 Blood Pressure 1: 146/82 Code: 8480-6 BMI: 37.6 Code: 19707-2 Heart Rate 1: 96 bpm Height: 5'4" Respiratory Rate: 20 bpm SpO2: 96% Tempera ture: 36.9 (C) / 98.4 (F) Weight: 219 lbs 12/20/2016 Blood Pressure 1: 126/70 Code: 8480-6 BMI: 37.2 Code: 73273-2 Heart Rate 1: 76 bpm Height: 5'4" Respiratory Rate: 22 bpm SpO2: 95% Tempera ture: 36.6 (C) / 97.8 (F) Weight: 217 lbs 10/08/2016 Blood Pressure 1: 128/82 Code: 8480-6 BMI: 36.9 Code: 39342-7 Heart Rate 1: 76 bpm Height: 5'4" Respiratory Rate: 20 bpm SpO2: 95% Tempera ture: 37.0 (C) / 98.6 (F) Weight: 215 lbs 09/19/2016 Blood Pressure 1: 144/78 Code: 8480-6 BMI: 37.8 Code: 65087-8 Heart Rate 1: 76 bpm Height: 5'4" Respiratory Rate: 22 bpm SpO2: 95% Tempera ture: 37.0 (C) / 98.6 (F) Weight: 220 lbs 08/20/2016 Blood Pressure 1: 140/86 Code: 8480-6 BMI: 37.4 Code: 51705-9 Heart Rate 1: 80 bpm Height: 5'4" Respiratory Rate: 20 bpm SpO2: 95% Tempera ture: 36.9 (C) / 98.4 (F) Weight: 218 lbs 06/19/2016 Blood Pressure 1: 124 Code: 8480-6 BMI: 37.8 Code: 92417-6 Heart Rate 1: 74 bpm Height: 5'4" Respiratory Rate: 24 bpm SpO2: 96% Tempera ture: 36.9 (C) / 98.4 (F) Weight: 220 lbs 06/04/2016 Blood Pressure 1: 12478 Code: 8480-6 BMI: 38.8 Code: 44704-4 Heart Rate 1: 72 bpm Height: 5'4" Respiratory Rate: 24 bpm SpO2: 95% Tempera ture: 36.8 (C) / 98.2 (F) Weight: 226 lbs 05/02/2016 Blood Pressure 1: 136/90 Code: 8480-6 BMI: 37.6 Code: 88850-9 Heart Rate 1: 72 bpm Height: 5'4" Respiratory Rate: 24 bpm SpO2: 96% Tempera ture: 36.9 (C) / 98.4 (F) Weight: 219 lbs 04/03/2016 Blood Pressure 1: 126/78 Code: 8480-6 BMI: 38.1 Code: 60367-4 Heart Rate 1: 72 bpm Height: 5'4" Respiratory Rate: 22 bpm SpO2: 94% Tempera ture: 36.9 (C) / 98.4 (F) Weight: 222 lbs 02/29/2016 Blood Pressure 1: 132/78 Code: 8480-6 Heart Rate 1: 78 bpm Height: Respiratory Rate: 24 bpm SpO2: 95% Temperature: 36.4 (C) / 97.6 (F) We ight: 02/02/2016 Blood Pressure 1: 124/78 Code: 8480-6 BMI: 37.6 Code: 58679-0 Heart Rate 1: 76 bpm Height: 5'4" Respiratory Rate: 20 bpm SpO2: 95% Tempera ture: 36.8 (C) / 98.2 (F) Weight: 219 lbs 01/05/2016 Blood Pressure 1: 126/70 Code: 8480-6 BMI: 37.1 Code: 78454-7 Heart Rate 1: 76 bpm Height: 5'4" Respiratory Rate: 20 bpm Temperature: 36 .6 (C) / 97.8 (F) Weight: 216 lbs 12/05/2015 Blood Pressure 1: 126/72 Code: 8480-6 BMI: 36.9 Code: 92217-6 Heart Rate 1: 92 bpm Height: 5'4" Respiratory Rate: 20 bpm Temperature: 36 .7 (C) / 98.1 (F) Weight: 215 lbs 10/26/2015 Blood Pressure 1: 142/80 Code: 8480-6 BMI: 36.4 Code: 08685-5 Heart Rate 1: 82 bpm Height: 5'4" Respiratory Rate: 24 bpm SpO2: 92% Tempera ture: 35.9 (C) / 96.7 (F) Weight: 212 lbs 10/05/2015 Blood Pressure 1: 136/82 Code: 8480-6 Heart Rate 1: 80 bpm Respiratory Rate: 18 bpm SpO2: 98% Temperature: 35.7 (C) / 96.3 (F) We ight: 214 lbs 09/15/2015 Blood Pressure 1: 116/80 Code: 8480-6 BMI: 34.6 Code: 96764-0 Heart Rate 1: 76 bpm Height: 5'6" Respiratory Rate: 20 bpm Temperature: 36 .6 (C) / 97.9 (F) Weight: 211 lbs 08/24/2015 Blood Pressure 1: 124/80 Code: 8480-6 BMI: 34.1 Code: 25992-8 Heart Rate 1: 68 bpm Height: 5'6" Respiratory Rate: 20 bpm Temperature: 36 .8 (C) / 98.3 (F) Weight: 208 lbs 07/05/2015 Blood Pressure 1: 114/78 Code: 8480-6 BMI: 33.9 Code: 28174-1 Heart Rate 1: 80 bpm Height: 5'6" Respiratory Rate: 20 bpm Temperature: 36 .6 (C) / 97.9 (F) Weight: 207 lbs 06/06/2015 Blood Pressure 1: 122/78 Code: 8480-6 BMI: 34.1 Code: 42448-4 Heart Rate 1: 76 bpm Height: 5'6" Respiratory Rate: 24 bpm SpO2: 96% Tempera ture: 36.4 (C) / 97.6 (F) Weight: 208 lbs 05/23/2015 Blood Pressure 1: 124/78 Code: 8480-6 Heart Rate 1: 76 bpm Respiratory Rate: 24 bpm SpO2: 93% Temperature: 36.8 (C) / 98.2 (F) We ight: 212 lbs 05/05/2015 Blood Pressure 1: 136/80 Code: 8480-6 BMI: 35.4 Code: 66935-1 Heart Rate 1: 76 bpm Height: 5'6" Respiratory Rate: 28 bpm Temperature: 37 .0 (C) / 98.6 (F) Weight: 216 lbs 03/30/2015 Blood Pressure 1: 132/86 Code: 8480-6 BMI: 35.2 Code: 13258-2 Heart Rate 1: 84 bpm Height: 5'6" Respiratory Rate: 24 bpm Temperature: 36 .7 (C) / 98.0 (F) Weight: 215 lbs 02/03/2015 Blood Pressure 1: 122/74 Code: 8480-6 BMI: 35.7 Code: 89550-3 Heart Rate 1: 84 bpm Height: 5'6" Respiratory Rate: 20 bpm Temperature: 36 .9 (C) / 98.5 (F) Weight: 218 lbs 12/29/2014 Blood Pressure 1: 132/80 Code: 8480-6 BMI: 35.1 Code: 08946-4 Heart Rate 1: 80 bpm Height: 5'6" Respiratory Rate: 20 bpm Temperature: 36 .6 (C) / 97.8 (F) Weight: 214 lbs 09/02/2014 Blood Pressure 1: 128/92 Code: 8480-6 BMI: 34.7 Code: 28409-8 Heart Rate 1: 84 bpm Height: 5'6" Respiratory Rate: 26 bpm Temperature: 36 .8 (C) / 98.2 (F) Weight: 212 lbs 08/25/2014 Blood Pressure 1: 124/80 Code: 8480-6 BMI: 34.7 Code: 72225-8 Heart Rate 1: 78 bpm Height: 5'6" Respiratory Rate: 22 bpm SpO2: 97% Tempera ture: 36.6 (C) / 97.8 (F) Weight: 212 lbs 04/01/2014 Blood Pressure 1: 142/84 Code: 8480-6 BMI: 34.4 Code: 34254-1 Heart Rate 1: 74 bpm Height: 5'5" Respiratory Rate: 20 bpm Temperature: 36 .4 (C) / 97.6 (F) Weight: 207 lbs 03/16/2014 Blood Pressure 1: 142/90 Code: 8480-6 BMI: 34.6 Code: 23694-7 Heart Rate 1: 76 bpm Height: 5'5" Respiratory Rate: 24 bpm Temperature: 36 .5 (C) / 97.7 (F) Weight: 208 lbs 03/09/2014 Blood Pressure 1: 116/70 Code: 8480-6 BMI: 35.3 Code: 05280-2 Heart Rate 1: 72 bpm Height: 5'5" [...] 1: 128/86 Code: 8480-6 BMI: 34.3 Code: 39068-6 Heart Rate 1: 84 bpm Height: 5'5" Respiratory Rate: 20 bpm Temperature: 36 .7 (C) / 98.0 (F) Weight: 206 lbs 12/23/2013 Blood Pressure 1: 122/70 Code: 8480-6 BMI: 34.3 Code: 66216-7 Heart Rate 1: 68 bpm Height: 5'5" Respiratory Rate: 20 bpm Temperature: 36 .8 (C) / 98.2 (F) Weight: 206 lbs 10/05/2013 Blood Pressure 1: 118/76 Code: 8480-6 BMI: 34.1 Code: 55504-3 Heart Rate 1: 68 bpm Height: 5'5" Respiratory Rate: 20 bpm SpO2: 98% Tempera ture: 36.6 (C) / 97.9 (F) Weight: 205 lbs 08/04/2013 Blood Pressure 1: 126/82 Code: 8480-6 BMI: 33.3 Code: 87458-6 Heart Rate 1: 76 bpm Height: 5'5" Respiratory Rate: 20 bpm Temperature: 36 .8 (C) / 98.2 (F) Weight: 200 lbs 07/03/2013 Blood Pressure 1: 124/82 Code: 8480-6 BMI: 33.3 Code: 61582-3 Heart Rate 1: 72 bpm Height: 5'5" Respiratory Rate: 22 bpm Temperature: 36 .1 (C) / 97.0 (F) Weight: 200 lbs 05/27/2013 Blood Pressure 1: 126/82 Code: 8480-6 Heart Rate 1: 74 bpm Respiratory Rate: 20 bpm Temperature: 36.0 (C) / 96.8 (F) Weight: 199 lbs 04/06/2013 Blood Pressure 1: 118/80 Code: 8480-6 BMI: 35.2 Code: 99937-0 Heart Rate 1: 80 bpm Height: 5'4" Respiratory Rate: 20 bpm Temperature: 37 .4 (C) / 99.3 (F) Weight: 205 lbs 11/10/2012 Blood Pressure 1: 128/82 Code: 8480-6 Heart Rate 1: 84 bpm Respiratory Rate: 20 bpm Temperature: 36.7 (C) / 98.0 (F) Weight: 199 lbs 09/02/2012 Blood Pressure 1: 116/82 Code: 8480-6 BMI: 34.2 Code: 12945-5 Heart Rate 1: 88 bpm Height: 5'4" Respiratory Rate: 22 bpm Temperature: 36 .6 (C) / 97.8 (F) Weight: 199 lbs 08/04/2012 Blood Pressure 1: 128/74 Code: 8480-6 BMI: 34.0 Code: 01777-5 Heart Rate 1: 92 bpm Height: 5'4" Respiratory Rate: 20 bpm Temperature: 36 .4 (C) / 97.5 (F) Weight: 198 lbs 07/21/2012 Blood Pressure 1: 124/86 Code: 8480-6 Heart Rate 1: 116 bpm Respiratory Rate: 24 bpm Temperature: 36.8 (C) / 98.2 (F) 07/02/2012 Blood Pressure 1: 116/88 Code: 8480-6 BMI: 33.6 Code: 16219-4 Heart Rate 1: 76 bpm Height: 5'4" Respiratory Rate: 20 bpm Temperature: 36 .8 (C) / 98.3 (F) Weight: 196 lbs 06/24/2012 Blood Pressure 1: 124/80 Code: 8480-6 BMI: 34.3 Code: 00748-8 Heart Rate 1: 72 bpm Height: 5'4" SpO2: 96% Temperature: 36.3 (C) / 97.3 (F) Weight: 200 lbs 05/20/2012 Blood Pressure 1: 116/88 Code: 8480-6 BMI: 33.8 Code: 86569-8 Heart Rate 1: 80 bpm Height: 5'4" Respiratory Rate: 22 bpm Temperature: 36 .9 (C) / 98.4 (F) Weight: 197 lbs 05/08/2012 Blood Pressure 1: 128/86 Code: 8480-6 BMI: 33.8 Code: 81724-4 Heart Rate 1: 76 bpm Height: 5'4" Respiratory Rate: 26 bpm SpO2: 95% Tempera ture: 36.1 (C) / 97.0 (F) Weight: 197 lbs 04/22/2012 Blood Pressure 1: 106/64 Code: 8480-6 BMI: 33.8 Code: 80756-7 Heart Rate 1: 70 bpm Height: 5'4" Temperature: 36.1 (C) / 97.0 (F) Weight: 197 lbs 02/13/2012 Blood Pressure 1: 126/82 Code: 8480-6 BMI: 34.7 Code: 60801-4 Heart Rate 1: 64 bpm Height: 5'4" Respiratory Rate: 20 bpm Temperature: 36 .6 (C) / 97.8 (F) Weight: 202 lbs 01/28/2012 Blood Pressure 1: 116/80 Code: 8480-6 BMI: 34.7 Code: 72006-6 Heart Rate 1: 76 bpm Height: 5'4" Respiratory Rate: 20 bpm Temperature: 36 .8 (C) / 98.3 (F) Weight: 202 lbs 12/26/2011 Blood Pressure 1: 132/82 Code: 8480-6 BMI: 36.0 Code: 84988-2 Heart Rate 1: 68 bpm Height: 5'4" Respiratory Rate: 22 bpm Temperature: 36 .7 (C) / 98.0 (F) Weight: 210 lbs 11/14/2011 Blood Pressure 1: 124/80 Code: 8480-6 BMI: 36.4 Code: 47703-6 Heart Rate 1: 76 bpm Height: 5'4" Respiratory Rate: 20 bpm Temperature: 36 .8 (C) / 98.2 (F) Weight: 212 lbs 09/12/2011 Blood Pressure 1: 108/74 Code: 8480-6 BMI: 37.1 Code: 68746-3 Heart Rate 1: 72 bpm Height: 5'4" Respiratory Rate: 20 bpm Temperature: 37 .0 (C) / 98.6 (F) Weight: 216 lbs 08/15/2011 Blood Pressure 1: 122/80 Code: 8480-6 BMI: 36.9 Code: 52479-3 Heart Rate 1: 76 bpm Height: 5'4" Respiratory Rate: 20 bpm Temperature: 36 .2 (C) / 97.1 (F) Weight: 215 lbs 08/09/2011 Blood Pressure 1: 112/78 Code: 8480-6 BMI: 36.9 Code: 92719-6 Heart Rate 1: 68 bpm Height: 5'4" Respiratory Rate: 20 bpm Temperature: 36 .7 (C) / 98.0 (F) Weight: 215 lbs 07/03/2011 Blood Pressure 1: 140/94 Code: 8480-6 BMI: 36.2 Code: 66017-1 Heart Rate 1: 68 bpm Height: 5'4" Temperature: 36.0 (C) / 96.8 (F) Weight: 211 lbs 06/04/2011 Blood Pressure 1: 124/70 Code: 8480-6 BMI: 36.7 Code: 78996-6 Heart Rate 1: 68 bpm Height: 5'4" Respiratory Rate: 20 bpm Temperature: 36 .6 (C) / 97.9 (F) Weight: 214 lbs 05/03/2011 Blood Pressure 1: 130/76 Code: 8480-6 BMI: 36.4 Code: 05718-1 Heart Rate 1: 74 bpm Height: 5'5" Temperature: 36.2 (C) / 97.2 (F) Weight: 219 lbs 04/05/2011 Blood Pressure 1: 124/86 Code: 8480-6 BMI: 35.9 Code: 10756-1 Heart Rate 1: 76 bpm Height: 5'6" Respiratory Rate: 22 bpm Temperature: 36 .3 (C) / 97.3 (F) Weight: 219 lbs 03/08/2011 Blood Pressure 1: 112/78 Code: 8480-6 BMI: 35.1 Code: 54952-5 Heart Rate 1: 80 bpm Height: 5'6" Respiratory Rate: 26 bpm Temperature: 36 .9 (C) / 98.4 (F) Weight: 214 lbs 01/24/2011 Blood Pressure 1: 110/82 Code: 8480-6 BMI: 35.6 Code: 56801-8 Heart Rate 1: 80 bpm Height: 5'6" Temperature: 36.1 (C) / 97.0 (F) Weight: 217 lbs 01/02/2011 Blood Pressure 1: 106/72 Code: 8480-6 BMI: 35.6 Code: 75490-8 Heart Rate 1: 76 bpm Height: 5'6" [...] 1: 120/74 Code: 8480-6 BMI: 35.9 Code: 84367-9 Heart Rate 1: 72 bpm Height: 5'5" Temperature: 36.3 (C) / 97.4 (F) Weight: 216 lbs 09/19/2010 Blood Pressure 1: 124/80 Code: 8480-6 BMI: 35.4 Code: 65844-2 Heart Rate 1: 76 bpm Height: 5'5" [...] 1: 122/78 Code: 8480-6 BMI: 37.4 Code: 62808-6 Heart Rate 1: 84 bpm Height: 5'5" [...] 07/24/16 follow up 06/19/2016 [facility] week [facility] owup follow up 06/04/2016 1mo fwup follow up 05/02/2016 Hospital fwup follow up 04/03/2016 dyspnea 02/29/2016 low grade 99s follow up 02/02/2016 ER fwup diabetes mellitus 01/05/2016 painful urination 12/05/2015 follow up 10/26/2015 ER visit from at [facility] for COPD Exacerbation follow up 10/05/2015 ER Visit gait abnormality 09/15/2015 Patient requesting kelly pineda paperwork to be filled out disturbances of thinking 08/24/2015 follow up 07/05/2015 4wk fwup follow up 06/06/2015 Hospital fw cough 05/23/2015 follow up 05/05/2015 dyspnea 03/30/2015 [facility] needs new orde r for O2 abdominal pain 02/03/2015 cyst 12/29/2014 vs abscess follow up 09/02/2014 [facility] fw headache 08/25/2014 facial drooping follow up 04/01/2014 ER follow up 03/16/2014 1wk fwup follow up 03/09/2014 1mo fwup and bronchi tis fwup follow up 03/03/2014 2 day follow up 03/01/2014 ER follow up 02/09/2014 [facility] gastroesophageal reflux 12/23/2013 painful urination [...] 06/24/2012 1mo fwup follow up 05/20/2012 2wk [facility] dyskinesia or tremor 05/08/2012 follow [...] 04/05/2011 1mo fwup follow up 03/08/2011 2wk [facility] fw dizziness 01/24/2011 frequent falling follow up 01/02/2011 decreased enalapril and propranolol rash 12/07/2010 under breasts/abdome n fold follow up 11/16/2010 1mo fwup follow up 11/02/2010 ER fwup follow up 10/18/[address] Medrano last w [facility], having increased allergy symptoms. Would like steroid [...] f/u follow up 12/07/2009 from [facility], done with PT--finished about 2wks [...] LION (obstructive sleep apnea)[ICD10: G47.33] Pattie Shi EnvoimoinscherKATINA [place] CPT-4: 25616 08/10/2019 ([id number]) OFFICE/OUTPATIENT VISIT EST Diagnosis: Pelvic pain in female[ICD10: R10.2] Diagnosis: Left leg swelling[ICD10: M79.89] Diagnosis: Dyspnea[ICD10: R06.00] Diagnosis: Constipation[ICD10: K59.00] Pattie BRUNSON S. O RENDER DO [place] CPT-4: 19392 08/04/2019 ([id number]) OFFICE/OUTPATIENT VISIT EST Diagnosis: Inspiratory stridor[ICD10: R06.1] Diagnosis: Diarrhea[ICD10: R19.7] [facility] CPT-[facility]: 9921 3 07/06/2019 ([id number]) OFFICE/OUTPATIENT VISIT EST Diagnosis: Left leg swelling[ICD10: M79.89] Diagnosis: Dyspnea[ICD10: R06.00] [facility] CPT-4: 9921 3 06/24/2019 ([id number]) OFFICE/OUTPATIENT VISIT EST Diagnosis: Acute bronchitis[ICD10: J20.9] Diagnosis: Colitis[ICD10: K52.9] Belia REID [facility] CPT-4: 85125 06/16/2019 ([id number]) OFFICE/OUTPATIENT VISIT EST Diagnosis: Diarrhea[ICD10: R19.7] Diagnosis: Abdominal bloating[ICD10: R14.0] Belia Reid [facility] CPT- 4: 12365 06/08/2019 ([id number]) OFFICE/OUTPATIENT VISIT EST Diagnosis: Acute febrile illness[ICD10: R50.9] Diagnosis: Colitis[ICD10: K52.9] Belia Reid [facility] CPT-4: 55080 05/26/2019 ([id number]) OFFICE/OUTPATIENT VISIT EST Diagnosis: Chronic obstructive pulmonary disease, unspecified[ICD10: J44.9] Diagnosis: Pulmonary fibrosis[ICD10: J84.10] Diagnosis: Intermittent stridor[ICD10: R06.1] Diagnosis: Muscle weakness[ICD10: M62.81] Belia REID [facility] CPT-4: 71166 05/13/2019 ([id number]) OFFICE/OUTPATIENT VISIT EST Diagnosis: Stridor[ICD10: R06.1] Diagnosis: COUGH[ICD10: R05] Belia REID [facility] CPT-4: 62542 05/06/2019 ([id number]) OFFICE/OUTPATIENT VISIT EST Diagnosis: Stridor[ICD10: R06.1] Diagnosis: Muscle, jerky movements (uncontrolled)[ICD10: G25.5] Belia REID [facility] CPT-4: 26050 04/29/2019 ([id number]) OFFICE/OUTPATIENT VISIT EST Diagnosis: Upper respiratory infection[ICD10: J06.9] Diagnosis: Flank pain[ICD10: R10.9] Diagnosis: Weight gain[ICD10: R63.5] Pattie AMBRIZ [facility] CPT-4: 28386 04/16/2019 ([id number]) OFFICE/OUTPATIENT VISIT EST Diagnosis: Generalized pruritus[ICD10: L29.9] Belia REID [employer] [facility] CPT-4: 88903 04/08/2019 ([id number]) OFFICE/OUTPATIENT VISIT EST Diagnosis: Acute bursitis of left shoulder[ICD10: M75.52] Diagnosis: Cervicalgia[ICD10: M54.2] Diagnosis: Chest wall pain[ICD10: R07.89] Belia SMITH [employer] [facility] CPT-4: 39364 01/22/2019 ([id number]) OFFICE/OUTPATIENT VISIT EST Diagnosis: Abdominal pain[ICD10: R10.9] Diagnosis: Pyelonephritis[ICD10: N12] Pattie DOMINGUEZ [place] CPT-4: 44770 01/07/2019 ([id number]) OFFICE/OUTPATIENT VISIT EST Diagnosis: Low back pain[ICD10: M54.5] Diagnosis: Left lumbar radiculopathy[ICD10: M54.16] Diagnosis: Left flank pain[ICD10: R10.9] Diagnosis: Left lower quadrant pain[ICD10: R10.32] Diagnosis: FLU VACCINE[ICD10: Z23] Belia FREDERICK [place] CPT-4: 98060 12/24/2018 ([id number]) OFFICE/OUTPATIENT VISIT EST Diagnosis: Migraine, unspecified, not intractable, without status migrainosus[ICD10: G43.909] Diagnosis: Fibromyalgia[ICD10: M79.7] Belia DOMINGUEZ [place] CPT-4: 69169 11/20/2018 ([id number]) OFFICE/OUTPATIENT VISIT EST Diagnosis: Migraine, unspecified, intractable, without status migrainosus[ICD10: G43.919] Diagnosis: Acute sinusitis, unspecified[ICD10: J01.90] Pattie REID [place] CPT-4: 39379 11/04/2018 ([id number]) OFFICE/OUTPATIENT VISIT EST Diagnosis: Pain in left wrist[ICD10: M25.532] Diagnosis: Other dorsalgia[ICD10: M54.89] Pattie Branjuan REID [employer] [facility] CPT-4: 16119 09/08/2018 ([id number]) OFFICE/OUTPATIENT VISIT EST Diagnosis: Acute stress reaction[ICD10: F43.0] Diagnosis: Pruritus, unspecified[ICD10: L29.9] 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, 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] Belia REID DO [facility] CPT-4: 33505 08/20/2018 ([id number]) OFFICE/OUTPATIENT VISIT EST Diagnosis: Hypotension due to drugs[ICD10: I95.2] Diagnosis: Paroxysmal atrial fibrillation[ICD10: I48.0] Diagnosis: Localized edema[ICD10: R60.0] Belia REID [facility] CPT-4: 62379 06/19/2018 ([id number]) OFFICE/OUTPATIENT VISIT EST Diagnosis: Generalized hyperhidrosis[ICD10: R61] Diagnosis: Essential (primary) hypertension[ICD10: I10] Diagnosis: Supraventricular tachycardia[ICD10: I47.1] Belia REID [facility] CPT-4: 85585 06/09/2018 ([id number]) OFFICE/OUTPATIENT VISIT EST Diagnosis: Stridor[ICD10: R06.1] Diagnosis: Dependence on supplemental oxygen[ICD10: Z99.81] Diagnosis: Weakness[ICD10: R53.1] Diagnosis: Supraventricular tachycardia[ICD10: I47.1] Belia REID [facility] CPT-4: 97220 05/21/2018 ([id number]) OFFICE/OUTPATIENT VISIT EST Diagnosis: Cervical disc disorder with radiculopathy, unspecified cervical region[ICD10: M50.10] Belia REID DO [facility] CPT-4: 08521 04/16/2018 ([id number]) OFFICE/OUTPATIENT VISIT EST Diagnosis: Migraine, unspecified, intractable, without status migrainosus[ICD10: G43.919] Diagnosis: Fibromyalgia[ICD10: M79.7] Pattie DOMINGUEZ [employer] [facility] CPT-4: 04479 04/01/2018 ([id number]) NURSE/OUTPATIENT VISIT EST Diagnosis: Hematuria, unspecified[ICD10: R31.9] Diagnosis: Dysuria[ICD10: R30.0] Belia REID DO [facility] CPT-4: 71316 03/17/2018 ([id number]) OFFICE/OUTPATIENT VISIT EST Diagnosis: Erythema intertrigo[ICD10: L30.4] Diagnosis: Chronic obstructive pulmonary disease with (acute) exacerbation[ICD10: J44.1] Diagnosis: Type 2 diabetes mellitus with hyperglycemia[ICD10: E11.65] Belia REID DO [facility] CPT-4: 93734 03/06/2018 ([id number]) OFFICE/OUTPATIENT VISIT EST Diagnosis: Cervicalgia[ICD10: M54.2] Pattie AMBRIZ DO [facility] CPT-4: 67458 02/05/2018 ([id number]) OFFICE/OUTPATIENT VISIT EST Diagnosis: Candidiasis of skin and nail[ICD10: B37.2] Diagnosis: Cervicalgia[ICD10: M54.2] Pattie AMBRIZ [facility] CPT-4: 46348 01/20/2018 ([id number]) OFFICE/OUTPATIENT VISIT EST Diagnosis: Pain in thoracic spine[ICD10: M54.6] Diagnosis: Radiculopathy, thoracic region[ICD10: M54.14] Belia REID DO [facility] CPT-4: 53477 12/25/2017 ([id number]) OFFICE/OUTPATIENT VISIT EST Diagnosis: Pain in thoracic spine[ICD10: M54.6] Diagnosis: Other muscle spasm[ICD10: M62.838] Diagnosis: FLU VACCINE[ICD10: Z23] Diagnosis: PNEUMOCOCCAL VACCINE[ICD10: Z23] Belia REID DO [facility] CPT-4: 34893 12/17/2017 ([id number]) OFFICE/OUTPATIENT VISIT EST Diagnosis: Chronic obstructive pulmonary disease with (acute) exacerbation[ICD10: J44.1] Belia REID DO [facility] CPT- 4: 43266 10/30/2017 ([id number]) OFFICE/OUTPATIENT VISIT EST Diagnosis: Chronic obstructive pulmonary disease with acute lower respiratory infection[ICD10: J44.0] Diagnosis: Mild intermittent asthma with (acute) exacerbation[ICD10: J45.21] Belia REID DO [facility] CPT-4: 97043 10/23/2017 ([id number]) NURSE/OUTPATIENT VISIT EST Diagnosis: Migraine, unspecified, not intractable, without status migrainosus[ICD10: G43.909] Belia REID DO [facility] CPT - 4: 30521 08/26/2017 ([id number]) OFFICE/OUTPATIENT VISIT EST Diagnosis: Urinary tract infection, site not specified[ICD10: N39.0] Diagnosis: Encounter for screening for osteoporosis[ICD10: Z13.820] Diagnosis: Encounter for screening mammogram for malignant neoplasm of breast[ICD10: Z12.31] Diagnosis: Acute bronchitis, unspecified[ICD10: J20.9] Pattie REID DO [facility] CPT-4: 76562 07/19/2017 ([id number]) OFFICE/OUTPATIENT VISIT EST Diagnosis: Rash and other nonspecific skin eruption[ICD10: R21] Pattie REID DO [facility] CPT-4: 70010 05/29/2017 ([id number]) OFFICE/OUTPATIENT VISIT EST Diagnosis: Diarrhea, unspecified[ICD10: R19.7] Diagnosis: Tinea corporis[ICD10: B35.4] Diagnosis: Tinea cruris[ICD10: B35.6] Diagnosis: Migraine, unspecified, not intractable, without status migrainosus[ICD10: G43.909] Belia REID DO [facility] CPT - 4: 49336 05/07/2017 ([id number]) OFFICE/OUTPATIENT VISIT EST Diagnosis: Stridor[ICD10: R06.1] Diagnosis: Chronic obstructive pulmonary disease with (acute) exacerbation[ICD10: J44.1] Belia REID DO [facility] CPT- 4: 75145 03/18/2017 ([id number]) OFFICE/OUTPATIENT VISIT EST Diagnosis: Type 2 diabetes mellitus with hyperglycemia[ICD10: E11.65] Belia REID DO [facility] CPT-4: 09166 02/27/2017 OFFICE/OUTPATIENT VISIT EST Diagnosis: Type 2 diabetes mellitus with hyperglycemia[ICD10: E11.65] Pattie REID DO [facility] CPT-4: 32909 02/22/2017 ([id number]) OFFICE/OUTPATIENT VISIT EST Diagnosis: Urinary tract infection, site not specified[ICD10: N39.0] Diagnosis: Pneumonia, unspecified organism[ICD10: J18.9] Diagnosis: Type 2 diabetes mellitus with hyperglycemia[ICD10: E11.65] Belia REID [facility] CPT-4: 44658 01/23/2017 ([id number]) OFFICE/OUTPATIENT VISIT EST Diagnosis: Type 2 diabetes mellitus with hyperglycemia[ICD10: E11.65] Diagnosis: Localized edema[ICD10: R60.0] Diagnosis: PNEUMOCOCCAL VACCINE[ICD10: Z23] Diagnosis: FLU VACCINE[ICD10: Z23] Belia FREDERICK [facility] CPT-4: 63618 12/20/2016 OFFICE/OUTPATIENT VISIT EST Diagnosis: Pain in thoracic spine[ICD10: M54.6] Diagnosis: Low back pain[ICD10: M54.5] Diagnosis: Cervicalgia[ICD10: M54.2] Diagnosis: Cough[ICD10: R05] Celeste Ferreira BELIA REID [facility] CPT-4: 20469 10/08/2016 ([id number]) OFFICE/OUTPATIENT VISIT EST Diagnosis: Primary insomnia[ICD10: F51.01] Diagnosis: Migraine, unspecified, not intractable, without status migrainosus[ICD10: G43.909] Diagnosis: Type 2 diabetes mellitus with hyperglycemia[ICD10: E11.65] Belia REID [facility] CPT-4: 53507 09/19/2016 ([id number]) OFFICE/OUTPATIENT VISIT EST Diagnosis: Migraine, unspecified, not intractable, without status migrainosus[ICD10: G43.909] Diagnosis: Generalized abdominal pain[ICD10: R10.84] Diagnosis: Cough[ICD10: R05] Belia Anushka REID [facility] CPT-4: 72238 08/20/2016 ([id number]) OFFICE/OUTPATIENT VISIT EST Diagnosis: Chronic obstructive pulmonary disease, unspecified[ICD10: J44.9] Diagnosis: Stridor[ICD10: R06.1] Belia REID DO [facility] CPT-4: 38362 06/19/2016 ([id number]) OFFICE/OUTPATIENT VISIT EST Diagnosis: Chronic obstructive pulmonary disease, unspecified[ICD10: J44.9] Diagnosis: Personal history of urinary (tract) infections[ICD10: Z87.440] Belia REID DO [facility] CPT-4: 20293 06/04/2016 ([id number]) OFFICE/OUTPATIENT VISIT EST Diagnosis: Stridor[ICD10: R06.1] Diagnosis: Chronic obstructive pulmonary disease with acute lower respiratory infection[ICD10: J44.0] Diagnosis: Other specified diseases of intestine[ICD10: K63.89] Diagnosis: Cystitis, unspecified without hematuria[ICD10: N30.90] Belia REID [employer] [facility] CPT-4: 43555 05/02/2016 ([id number]) OFFICE/OUTPATIENT VISIT EST Diagnosis: Fibromyalgia[ICD10: M79.7] Diagnosis: Urinary tract infection, site not specified[ICD10: N39.0] Belia REID DO [facility] CPT-4: 05531 04/03/2016 ([id number]) OFFICE/OUTPATIENT VISIT EST Diagnosis: Unspecified asthma, uncomplicated[ICD10: J45.909] Diagnosis: Cough[ICD10: R05] Lidia Jaiden REID DO [facility] T-4: 88549 02/29/2016 ([id number]) OFFICE/OUTPATIENT VISIT EST Diagnosis: Migraine, unspecified, intractable, without status migrainosus[ICD10: G43.919] Diagnosis: Urinary tract infection, site not specified[ICD10: N39.0] Belia REID DO [facility] CPT-4: 87656 02/02/2016 ([id number]) OFFICE/OUTPATIENT VISIT EST Diagnosis: Urinary tract infection, site not specified[ICD10: N39.0] Diagnosis: Unspecified abdominal pain[ICD10: R10.9] Diagnosis: Pain in thoracic spine[ICD10: M54.6] Diagnosis: Type 2 diabetes mellitus with diabetic neuropathic arthropathy[ICD10: E11.610] Belia Yandelisabellaannie HSUBELIA BushraMayda ANUSHKA [employer] [facility] CPT-4: 74696 12/05/2015 ([id number]) OFFICE/OUTPATIENT VISIT EST Diagnosis: Chronic obstructive pulmonary disease with (acute) exacerbation[ICD10: J44.1] Diagnosis: Migraine, unspecified, not intractable, without status migrainosus[ICD10: G43.909] Lidia HSUQUELINE BushraMayda ANUSHKA [employer] [facility] CPT -4: 79112 10/26/2015 ([id number]) OFFICE/OUTPATIENT VISIT EST Diagnosis: Hematuria, unspecified[ICD10: R31.9] Diagnosis: Urinary tract infection, site not specified[ICD10: N39.0] Lidia Jaiden BELIA BushraMayda ANUSHKA [employer] [facility] CPT-4: 20104 10/05/2015 OFFICE/OUTPATIENT VISIT EST Diagnosis: Chronic obstructive pulmonary disease, unspecified[ICD10: J44.9] Diagnosis: Muscle weakness (generalized)[ICD10: M62.81] Diagnosis: Polyneuropathy, unspecified[ICD10: G62.9] Diagnosis: Other intervertebral disc degeneration, 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] Diagnosis: Fibromyalgia[ICD10: M79.7] Belia Yandelisabellaannie HSUBELIA Yuridia DOMINGUEZ [employer] [facility] CPT-4: 70426 09/15/2015 ([id number]) OFFICE/OUTPATIENT VISIT EST Diagnosis: Disorientation, unspecified[ICD10: R41.0] Diagnosis: Headache[ICD10: R51] Diagnosis: Paresthesia of skin[ICD10: R20.2] Lidia Paredes BushraMayda ANUSHKA [employer] [facility] CPT-4: 24820 08/24/2015 ([id number]) OFFICE/OUTPATIENT VISIT EST Diagnosis: Type 2 diabetes mellitus with hyperglycemia[ICD10: E11.65] Diagnosis: Chronic obstructive pulmonary disease with acute lower respiratory infection[ICD10: J44.0] Belia BRUNSON BushraMayda ANUSHKA [employer] [facility] CPT-4: 62749 07/05/2015 ([id number]) OFFICE/OUTPATIENT VISIT EST Diagnosis: Mild intermittent asthma with (acute) exacerbation[ICD10: J45.21] Diagnosis: Chronic obstructive pulmonary disease, unspecified[ICD10: J44.9] Belia REID [facility] CPT-4: 66441 06/06/2015 ([id number]) OFFICE/OUTPATIENT VISIT EST Diagnosis: Chronic obstructive pulmonary disease with (acute) exacerbation[ICD10: J44.1] Lidia REID [facility] CPT- 4: 56165 05/23/2015 ([id number]) OFFICE/OUTPATIENT VISIT EST Diagnosis: Type 2 diabetes mellitus with hyperglycemia[ICD10: E11.65] Diagnosis: Functional dyspepsia[ICD10: K30] Belia REID [facility] CPT-4: 58150 05/05/2015 ([id number]) OFFICE/OUTPATIENT VISIT EST Diagnosis: Type 2 diabetes mellitus with hyperglycemia[ICD10: E11.65] Diagnosis: Glycosuria[ICD10: R81] Diagnosis: Urinary tract infection, site not specified[ICD10: N39.0] Belia REID [facility] CPT-4: 10787 03/30/2015 ([id number]) OFFICE/OUTPATIENT VISIT EST Diagnosis: Generalized abdominal pain[ICD10: R10.84] Diagnosis: Diarrhea, unspecified[ICD10: R19.7] Diagnosis: Urinary tract infection, site not specified[ICD10: N39.0] Diagnosis: Gastro-esophageal reflux disease without esophagitis[ICD10: K21.9] Belia REID [facility] CPT-4: 14487 02/03/2015 ([id number]) OFFICE/OUTPATIENT VISIT EST Diagnosis: Other specified noninflammatory disorders of vagina[ICD10: N89.8] Diagnosis: Follicular disorder, unspecified[ICD10: L73.9] Diagnosis: Functional dyspepsia[ICD10: K30] Diagnosis: FLU VACCINE[ICD10: Z23] Belia [facility] CPT-4: 19625 12/29/2014 ([id number]) OFFICE/OUTPATIENT VISIT EST 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] Diagnosis: RESTLESS LEGS SYNDROME[ICD9: 333.94] Diagnosis: MIGRAINE NOS/NOT INTRCBL[ICD9: 346.90] Belia REID [facility] CPT-4: 62995 09/02/2014 ([id number]) OFFICE/OUTPATIENT VISIT EST Diagnosis: Cervical radiculopathy[ICD9: 723.4] Diagnosis: Cervicalgia[ICD9: 723.1] Diagnosis: Degenerative disc disease, cervical[ICD9: 722.4] 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I[ICD9: 250.00] Belia REID [facility] CPT-4: 64672 04/01/2014 OFFICE/OUTPATIENT VISIT EST Diagnosis: Reactive airway disease[ICD9: 493.90] Belia REID [facility] CPT-4: 39454 03/16/2014 ([id number]) OFFICE/OUTPATIENT VISIT EST Diagnosis: BRONCHITIS, ACUTE[ICD9: 466.0] Diagnosis: Reactive airway disease[ICD9: 493.90] Belia REID [employer] [facility] CPT-4: 18382 03/09/2014 OFFICE/OUTPATIENT VISIT EST Diagnosis: BRONCHITIS, ACUTE[ICD9: 466.0] Diagnosis: WHEEZING[ICD9: 786.07] Huong Peguero [employer] [facility] CPT-4: 05896 03/03/2014 OFFICE/OUTPATIENT VISIT EST Diagnosis: BRONCHITIS, ACUTE[ICD9: 466.0] Diagnosis: WHEEZING[ICD9: 786.07] Huong Peguero [employer] [facility] CPT-4: 59391 03/01/2014 ([id number]) OFFICE/OUTPATIENT VISIT EST Diagnosis: GERD[ICD9: 530.81] Diagnosis: ARTHRALGIA-MULTIPLE SITES[ICD9: 719.49] Diagnosis: LUMB/LUMBOSAC DISC DEGEN[ICD9: 722.52] Diagnosis: - I - FIBROMYALGIA[ICD9: 729.1] Belia REID [employer] [facility] CPT-4: 65646 02/09/2014 ([id number]) OFFICE/OUTPATIENT VISIT EST Diagnosis: Peptic ulcer disease[ICD9: 533.90] Diagnosis: RESTLESS LEGS SYNDROME[ICD9: 333.94] Diagnosis: Neuropathy[ICD9: 355.9] Belia FREDERICK DO [facility] CPT-4: 39176 12/23/2013 ([id number]) OFFICE/OUTPATIENT VISIT EST Diagnosis: URINARY TRACT INFECTION[ICD9: 599.0] Belia REID DO [facility] CPT-4: 05054 10/30/2013 ([id number]) OFFICE/OUTPATIENT VISIT EST Diagnosis: Flank pain[ICD9: 789.00] Belia MARTINEZ [facility] CPT-4: 56995 10/21/2013 ([id number]) OFFICE/OUTPATIENT VISIT EST Diagnosis: INFLAMED SEBORR KERATOS[ICD9: 702.11] Diagnosis: Brachioradial pruritus[ICD9: 698.9] Diagnosis: ASTHMA NOS[ICD9: 493.90] Belia MARTINEZ [facility] CPT-4: 73693 10/05/2013 ([id number]) OFFICE/OUTPATIENT VISIT EST Diagnosis: HYPERTENSION[ICD9: 401.9] Diagnosis: - I - FIBROMYALGIA[ICD9: 729.1] Diagnosis: DIZZINESS/VERTIGO[ICD9: 780.4] Diagnosis: MIGRAINE NOS/NOT INTRCBL[ICD9: 346.90] Diagnosis: Diabetic peripheral neuropathy[ICD9: 250.60] Diagnosis: Flank pain[ICD9: 789.00] Belia MARTINEZ [facility] CPT-4: 76754 08/04/2013 ([id number]) OFFICE/OUTPATIENT VISIT EST Diagnosis: ALLERGIC RHINITIS[ICD9: 477.9] Belia REID DO [facility] CPT-4: 66475 07/13/2013 OFFICE/OUTPATIENT VISIT EST Diagnosis: URINARY TRACT INFECTION[ICD9: 599.0] Huong Osborne KRAIG REID DO [facility] CPT-4: 25491 07/03/2013 OFFICE/OUTPATIENT VISIT EST Diagnosis: HYPERTENSION[ICD9: 401.9] Diagnosis: URINARY TRACT INFECTION[ICD9: 599.0] Diagnosis: BACKACHE[ICD9: 724.5] Diagnosis: URINARY INCONTINENCE[ICD9: 788.30] Huong [place] CORNELLKIMI MARIE Yuridia REID [facility] CPT-4: 09365 05/27/2013 ([id number]) OFFICE/OUTPATIENT VISIT EST Diagnosis: Flank pain[ICD9: 789.00] Belia Yandelkatina BELIA BushraMayda KIESHA POOLE [facility] CPT-4: 52586 05/25/2013 ([id number]) OFFICE/OUTPATIENT VISIT EST Diagnosis: B-COMPLEX DEFIC NEC[ICD9: 266.2] Belia Humphriesisabellaannie CORNELLBELIA Yuridia REID [facility] CPT-4: 10331 05/04/2013 ([id number]) OFFICE/OUTPATIENT VISIT EST Diagnosis: ALLERGIC RHINITIS[ICD9: 477.9] Diagnosis: Vitamin B12 deficiency[ICD9: 266.2] Belia Yandelkatina CORNELLFelicita DONNA Yuridia [facility] CPT-4: 51658 04/17/2013 ([id number]) OFFICE/OUTPATIENT VISIT EST 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I[ICD9: 250.00] Diagnosis: URINARY TRACT INFECTION[ICD9: 599.0] Diagnosis: DIZZINESS/VERTIGO[ICD9: 780.4] Diagnosis: DIARRHEA[ICD9: 787.91] Belializ Reid BELIA BushraMayda RALF Peguero [facility] CPT-4: 04096 04/06/2013 ([id number]) OFFICE/OUTPATIENT VISIT EST Diagnosis: URINARY TRACT INFECTION[ICD9: 599.0] Diagnosis: URINARY RETENTION[ICD9: 788.20] Belia Yandelkatina BELIA BushraMayda ANUSHKA [facility] CPT-4: 32843 11/10/2012 ([id number]) OFFICE/OUTPATIENT VISIT EST Diagnosis: TACHYCARDIA[ICD9: 785.0] Diagnosis: SYNCOPE AND COLLAPSE[ICD9: 780.2] Diagnosis: CONSCIOUSNS ALTERAT NEC[ICD9: 780.09] Belia Yandelkatina CALVO BushraMayda ANUSHKA [facility] CPT-4: 14709 09/02/2012 OFFICE/OUTPATIENT VISIT EST Diagnosis: TACHYCARDIA[ICD9: 785.0] Diagnosis: SYNCOPE AND COLLAPSE[ICD9: 780.2] Belia REID DO [facility] CPT-4: 70565 08/04/2012 ([id number]) OFFICE/OUTPATIENT VISIT EST Diagnosis: Loss of consciousness[ICD9: 780.09] Diagnosis: Tachycardia[ICD9: 785.0] Diagnosis: MALAISE AND FATIGUE[ICD9: 780.79] Belia REID DO [facility] CPT-4: 22382 07/21/2012 ([id number]) OFFICE/OUTPATIENT VISIT EST Diagnosis: BRONCHITIS, ACUTE[ICD9: 466.0] Diagnosis: ASTHMA NOS[ICD9: 493.90] Belia POOLE [facility] CPT-4: 94951 07/02/2012 ([id number]) OFFICE/OUTPATIENT VISIT EST Diagnosis: CEPHALGIA[ICD9: 784.0] Belia Peguero [facility] CPT-4: 10586 06/25/2012 ([id number]) OFFICE/OUTPATIENT VISIT EST Diagnosis: GERD[ICD9: 530.81] Diagnosis: DIARRHEA[ICD9: 787.91] Diagnosis: URINARY TRACT INFECTION[ICD9: 599.0] Diagnosis: ASTHMA NOS[ICD9: 493.90] Diagnosis: ALLERGIC RHINITIS[ICD9: 477.9] Belia REID [facility] CPT-4: 36506 06/24/2012 ([id number]) OFFICE/OUTPATIENT VISIT EST Diagnosis: MIGRAINE NOS/NOT INTRCBL[ICD9: 346.90] Diagnosis: TREMOR NEC[ICD9: 333.1] Diagnosis: CHRONIC PAIN SYNDROME[ICD9: 338.4] Belia BASS MARIE Yuridia REID [employer] [facility] CPT-4: 69410 05/20/2012 ([id number]) OFFICE/OUTPATIENT VISIT EST Diagnosis: DIZZINESS/VERTIGO[ICD9: 780.4] Diagnosis: PALPITATIONS[ICD9: 785.1] Diagnosis: TREMOR NEC[ICD9: 333.1] Diagnosis: ANXIETY STATE NOS[ICD9: 300.00] Diagnosis: POSTTRAUMATIC STRESS DISORDER[ICD9: 309.81] Belia CORNELLLINE Yuridia REID [employer] [facility] CPT-4: 87005 05/08/2012 ([id number]) OFFICE/OUTPATIENT VISIT EST Diagnosis: MIGRAINE NOS/NOT INTRCBL[ICD9: 346.90] Diagnosis: FIBROMYALGIA[ICD9: 729.1] Diagnosis: SYNCOPE AND COLLAPSE[ICD9: 780.2] Diagnosis: Diabetic peripheral neuropathy[ICD9: 250.60] Belia TomlinsonMayda [facility] [employer] CPT-4: 97285 04/22/2012 OFFICE/OUTPATIENT VISIT EST Diagnosis: ROTATOR CUFF DIS NEC[ICD9: 726.19] Diagnosis: JOINT PAIN-SHLDER[ICD9: 719.41] Diagnosis: DYSPEPSIA[ICD9: 536.8] Belia CORNELLLINE BushraMayda RALF [employer] CPT-4: 39420 02/13/2012 ([id number]) OFFICE/OUTPATIENT VISIT EST Diagnosis: MIGRAINE NOS/NOT INTRCBL[ICD9: 346.90] Diagnosis: GERD[ICD9: 530.81] Diagnosis: DYSPEPSIA[ICD9: 536.8] Belia CORNELLLINE BushraMayda RALF [employer] CPT-4: 40804 01/28/2012 OFFICE/OUTPATIENT VISIT EST Diagnosis: CEPHALGIA[ICD9: 784.0] Diagnosis: MIGRAINE NOS/NOT INTRCBL[ICD9: 346.90] Diagnosis: GERD[ICD9: 530.81] Diagnosis: INSOMNIA NOS[ICD9: 780.52] Belia Yandelisabellaannie HSUBELIA BushraMayda RAND DAILEYER [facility] CPT-4: 83212 12/26/2011 ([id number]) OFFICE/OUTPATIENT VISIT EST Diagnosis: CEPHALGIA[ICD9: 784.0] Diagnosis: MIGRAINE NOS/NOT INTRCBL[ICD9: 346.90] Diagnosis: MALAISE AND FATIGUE[ICD9: 780.79] Diagnosis: FIBROMYALGIA[ICD9: 729.1] Diagnosis: ALLERGIC RHINITIS[ICD9: 477.9] Belia Anushka BELIA Bushra Mayda [facility] CPT-4: 23115 11/14/2011 ([id number]) OFFICE/OUTPATIENT VISIT EST Diagnosis: MALAISE AND FATIGUE[ICD9: 780.79] Diagnosis: MUSCLE WEAKNESS-GENERAL[ICD9: 728.87] Diagnosis: MIGRAINE NOS/NOT INTRCBL[ICD9: 346.90] Diagnosis: JOINT PAIN-SHLDER[ICD9: 719.41] Belia REID [facility] CPT-4: 80505 09/12/2011 ([id number]) OFFICE/OUTPATIENT VISIT EST Diagnosis: CONCUSSION[ICD9: 850.9] Diagnosis: Ataxia[ICD9: 781.3] Diagnosis: DIZZINESS/VERTIGO[ICD9: 780.4] Belia REID [facility] CPT-4: 57905 08/15/2011 ([id number]) OFFICE/OUTPATIENT VISIT EST Diagnosis: THROMBOPHLEBITIS[ICD9: 451.9] Diagnosis: Subacromial bursitis[ICD9: 726.19] Diagnosis: ALLERGIC RHINITIS[ICD9: 477.9] Diagnosis: Lipoma[ICD9: 214.9] [facility] 33805 08/09/2011 ([id number]) OFFICE/OUTPATIENT VISIT EST Diagnosis: THROMBOPHLEBITIS[ICD9: 451.9] Diagnosis: Arm pain[ICD9: 729.5] Diagnosis: Clostridium difficile colitis[ICD9: 008.45] Diagnosis: URINARY TRACT INFECTION[ICD9: 599.0] Belia [facility] CPT-4: 19431 07/03/2011 ([id number]) OFFICE/OUTPATIENT VISIT EST Diagnosis: ARTHRALGIA-MULTIPLE SITES[ICD9: 719.49] Diagnosis: Muscle cramp[ICD9: 729.82] Diagnosis: INSOMNIA NOS[ICD9: 780.52] [facility]: 18259 06/04/2011 OFFICE/OUTPATIENT VISIT EST Diagnosis: Headache[ICD9: 784.0] Diagnosis: Allergic rhinitis[ICD9: 477.9] Belia [facility] CPT-4: 56095 05/03/2011 OFFICE/OUTPATIENT VISIT EST Diagnosis: LUMB/LUMBOSAC DISC DEGEN[ICD9: 722.52] Diagnosis: MIGRAINE NOS/NOT INTRCBL[ICD9: 346.90] Diagnosis: CHRONIC PAIN SYNDROME[ICD9: 338.4] Diagnosis: RESTLESS LEGS SYNDROME[ICD9: 333.94] Belia REID [facility] CPT-4: 98393 04/05/2011 OFFICE/OUTPATIENT VISIT EST Diagnosis: MIGRAINE NOS/NOT INTRCBL[ICD9: 346.90] Diagnosis: GERD[ICD9: 530.81] Belia REID [facility] CPT-4: 62728 03/08/2011 OFFICE/OUTPATIENT VISIT EST Diagnosis: URINARY TRACT INFECTION[ICD9: 599.0] Diagnosis: Vertigo[ICD9: 780.4] Diagnosis: GERD[ICD9: 530.81] Belia [facility] CPT-4: 00936 01/24/2011 OFFICE/OUTPATIENT VISIT EST Diagnosis: Hypotension[ICD9: 458.9] Diagnosis: Syncopal episodes[ICD9: 780.2] Diagnosis: MIGRAINE NOS/NOT INTRCBL[ICD9: 346.90] Diagnosis: MALAISE AND FATIGUE[ICD9: 780.79] Belia [facility] CPT-4: 15806 01/02/2011 OFFICE/OUTPATIENT VISIT EST Diagnosis: Tinea cruris[ICD9: 110.3] Diagnosis: Intertrigo[ICD9: 695.89] Diagnosis: MIGRAINE NOS/NOT INTRCBL[ICD9: 346.90] Belia HSUQ [facility] CPT-4: 53062 12/07/2010 OFFICE/OUTPATIENT VISIT EST Diagnosis: PALPITATIONS[ICD9: 785.1] Diagnosis: ANXIETY STATE NOS[ICD9: 300.00] Belia [facility] CPT-4: 23516 11/16/2010 OFFICE/OUTPATIENT VISIT EST Diagnosis: URINARY TRACT INFECTION[ICD9: 599.0] Diagnosis: MIGRAINE NOS/NOT INTRCBL[ICD9: 346.90] Iraida CASILLAS [facility] CPT-4: 67312 11/02/2010 OFFICE/OUTPATIENT VISIT EST Diagnosis: ALLERGIC RHINITIS[ICD9: 477.9] Diagnosis: ANXIETY STATE NOS[ICD9: 300.00] Belia [facility] CPT-4: 89703 10/18/2010 OFFICE/OUTPATIENT VISIT EST Belia [facility] CPT- 4: 24124 09/19/2010 OFFICE/OUTPATIENT VISIT EST Belia [facility] CPT- 4: 01359 09/06/2010 ([id number]) OFFICE/OUTPATIENT VISIT EST Beila CASILLAS [facility] CPT-4: 74299 08/10/2010 ([id number]) OFFICE/OUTPATIENT VISIT EST Belia CASILLAS [facility] CPT-4: 13568 05/11/2010 ([id number]) OFFICE/OUTPATIENT VISIT, EST Belia [facility]JIAL[facility] CPT-4: 05582 04/06/2010 ([id number]) OFFICE/OUTPATIENT VISIT, EST Belia HSU [facility] CPT-4: 69243 02/09/2010 ([id number]) OFFICE/OUTPATIENT VISIT, EST Belia [facility] CPT-4: 85754 01/05/2010 ([id number]) OFFICE/OUTPATIENT VISIT, EST Belia [facility] CPT-4: 87430 12/07/2009 ([id number]) OFFICE/OUTPATIENT VISIT, EST Belia [facility] CPT-4: 77977 11/08/2009 ([id number]) OFFICE/OUTPATIENT VISIT, EST Beliahanna HSU [facility] CPT-4: 12874 10/24/2009 ([id number]) OFFICE/OUTPATIENT VISIT, EST Beliahanna [facility] CPT-4: 69492 07/25/2009 ([id number]) OFFICE/OUTPATIENT VISIT, EST Belia [facility] CPT-4: 34933 05/26/2009 Plan of Care Planned Activity Notes [...] new home sleep study on patient through [facility] to assess severity of symptoms, patient does wear her oxygen at night though. educated on importance of wearing oxygen at all times, even when in public. ICD-9 : 786.09 ICD-10 : R06.89 08/10/2019 Visit Diagnosis Plan: Dyspnea Discussion: has had rece nt cta. is due for updated ct without contrast due to adenopathy. will order. ICD-9 : 786.09 ICD-10 : R06.00 08/04/2019 Visit Diagnosis Plan: Left leg swelling Discussion: daren lang has had ultrasound of leg and ct of pelvis within the last couple months with no abnormalities. will order mri of left lower extremity to rule out any masses. ICD-9 : 729.81 ICD-10 : M79.89 08/04/2019 Visit Diagnosis Plan: Pelvic pain in female Discussion : could be r/t constipation so will see how linzess works. ICD-9 : 625.9 ICD-10 : R10.2 08/04/2019 Visit Diagnosis Plan: Constipation Discussion: samples of linzess 72 given to patient with instructions on use. call office in 1 week with update. ICD-9 : 564.00 ICD-10 : K59.00 08/04/2019 Appointment: Pattie Sotomayor [address] [place], [place] [id number] ACUTE ILLNESS 08/04/2019 Visit Diagnosis Plan: Diarrhea Discussion: Restart Col estid at once daily ICD-9 : 787.91 ICD-10 : R19.7 07/06/2019 Visit Diagnosis Plan: Inspiratory stridor Discussion: Continue oxygen via NC at 2 L Continue ativan at QID Follow Up: 4 weeks ICD-9 : 786.1 ICD-10 : R06.1 07/06/2019 Appointment: Belia Reid WPtel: [address] [place] [address] TELEMEDICINE 07/06/2019 Visit Diagnosis Plan: Left leg [...] 786.09 ICD-10 : R06.00 06/24/2019 Appointment: Belia Ried WPtel: [address] [place] [address] TELEMEDICINE 06/24/2019 Visit Diagnosis Plan: Acute bronchitis Discussion: Cov er with levaquin Increase SVNs with albuterol to QID Has oxygen using q HS routinely and prn To ER if oxygen levels drop or worsening respiratory symptoms ICD-9 : 466.0 ICD-10 : J20.9 06/16/2019 Visit Diagnosis Plan: Colitis Discussion: Levaquin/[place] gyl [place] Diet ICD-9 : 558.9 ICD-10 : K52.9 06/16/2019 Appointment: Belia Reid WPtel: [phone] [id number] TELEMEDIC[facility] 06/16/2019 Patient Education: Levaquin- [employer] [place] [id number] https://www.HomeSav/samplemd/resources/getResource/61/[email or web address] Completed 06/16/2019 Visit Diagnosis Plan: Diarrhea Discussion: Vancomycin for 10 days and notify if not improving or worsening BLAND diet Hydrate ICD-9 : 787.91 ICD-10 : R19.7 06/08/2019 Appointment: Belia Reid WPtel: [address] [place] [address] TELEMEDICINE 06/08/2019 Visit Diagnosis Plan: Acute febrile illness Discussion : Notify if worsens ICD-9 : 780.60 ICD-10 : R50.9 05/26/2019 Visit Diagnosis Plan: Colitis Discussion: Flagyl plus cipro to cover for both colitis and UTI Notify or to ER if worsening ICD-9 : 558.9 ICD-10 : K52.9 05/26/2019 Appointment: Belia Reid WPtel: [address] [place] [address] TELEMEDICINE 05/26/2019 Appointment: Pattie Sotomayor [address] RESCHEDULED 05/18/2019 Visit Diagnosis Plan: Chronic obstructive pulmonary di sease, unspecified Discussion: Recommend pulmonary rehab Patient states she never went to pulmonary rehab due to cost as well as transportation issues Finish trelagy Stop singulair Decrease hydroxyzine to 25mg po q HS Fwup [address] scan of Chest results discussed ICD-9 : 496 ICD-10 : J44.9 05/13/2019 Appointment: Belia Reid WPtel: [address] [place] [address] Hospital Follow Up 05/13/2019 Visit Diagnosis Plan: COUGH Discussion: Check CT scan of chest ICD-9 : 786.2 ICD-10 : R05 05/06/2019 Visit Diagnosis Plan: Stridor Discussion: Add Trelagy 1 p daily Add Singulair May need to see new sole layer ICD-9 : 786.1 ICD-10 : R06.1 05/06/2019 Appointment: Belia Reid WPtel: [address] [place], [place] [address] FOLLOW UP 05/06/2019 Patient Education: Singulair- [employer] Coupon [id number] https://www.Biscoot.Pogoapp/samplemd/resources/getResource/61/[email or web address]-10g4-yb Completed 05/06/2019 Appointment: Belia Reid WPtel: [address] [place], [place] [phone] [place] RESCHEDULED 04/30/2019 Visit Diagnosis Plan: Muscle, [...] : R06.1 04/29/2019 Appointment: Belia Reid WPtel: [address] [place], [place] [phone] Hospital Follow Up 04/29/2019 Patient Education: Valium- [employer] Coupon [id number] https://www.Biscoot.Pogoapp/samplemd/resources/getResource/61/c59009nk-005u-7d62-3p Completed 04/29/2019 Visit Diagnosis Plan: Weight gain [...] ICD-10 : R10.9 04/16/2019 Appointment: Pattie Sotomayor [address] [place], [place] [id number] ACUTE ILLNESS 04/16/2019 Patient Education: cyclobenzaprine- [employer] Coupon [id number] https://www.Biscoot.com/samplemd/resources/getResource/61/[email or web address]-j0 Completed 04/16/2019 Visit Diagnosis Plan: Generalized pruritus Discussion: Hydroxyzine 25mg po TID for itching and anxiety ICD-9 : 698.9 ICD-10 : L29.9 04/08/2019 Visit Diagnosis Plan: Migraine, unspecif ied, not intractable, without status migrainosus Discussion: Increase gabapentin to 600mg po BID ICD-9 : 346.90 ICD-10 : G43.909 04/08/2019 Appointment: Belia Reid WPtel: [address] [place] [address] ACUTE ILLNESS 04/08/2019 Visit Diagnosis Plan: Cervicalgia [...] : M75.52 01/22/2019 Appointment: Belia Reid WPtel: [address] [place] [address] Hospital Follow Up 01/22/2019 Visit Diagnosis Plan: Abdominal pain Discussion: urine culture sent to assess for any infection. rocephin given in office to cover for pyelonephritis. instructed to push fluids. call office with any new or worsening symptoms. ICD-9 : 789.00 ICD-10 : R10.9 01/07/2019 Appointment: Pattie Sotomayor [address] [place] [address] ACUTE ILLNESS 01/07/2019 Visit Diagnosis Plan: Low back pain Discussion: Stat C T of abdomen/pelvis now ICD-9 : 724.2 ICD-10 : M54.5 12/24/2018 Appointment: Belia Reid WPtel: [address] [place] [address] FOLLOW UP 12/24/2018 Visit Diagnosis Plan: Fibromyalgia [...] : G43.909 11/20/2018 Appointment: Belia Reid WPtel: [facility] [place] [id number] ACUTE ILLNESS 11/20/2018 Patient Education: baclofen- [employer] Coupon [id number] https://www.Biscoot.Pogoapp/samplemd/resources/getResource/61/[email or web address]-vu9h-09hi-67 Completed 11/20/2018 Visit Diagnosis Plan: Migraine, unspecif ied, intractable, without status migrainosus Discussion: toradol/phenergan given in o ffice (60 mg toradol, 12.5 mg phenergan). instructed to call if no improvement or worsening. 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 ICD-9 : 346.91 ICD-10 : G43.919 11/04/2018 Visit Diagnosis Plan: Acute sinusitis, unspecified Dis cussion: zithromax prescribed to cover for sinus infection due to length of symptoms and clinincal s/s. ICD-9 : 461.9 ICD-10 : J01.90 11/04/2018 Appointment: Pattie Sotomayor [address] [place], [place] [id number] ACUTE ILLNESS 11/04/2018 Appointment: Belia Reid WPtel: [facility] [place] [phone] US CANCELED 09/24/2018 Visit Diagnosis Plan: Type 2 diabetes me llitus with diabetic neuropathy, unspecified Discussion: Retry gabapentin 300mg po q HS ICD-9 : 250.60 ICD-10 : E11.40 09/18/2018 Visit Diagnosis Plan: Vitamin D deficiency, unspecifie d Discussion: Increase Vitamin D3 to 10,000 u daily ICD-9 : 268.9 ICD-10 : E55.9 09/18/2018 Visit Diagnosis Plan: Encounter for [facility] adult medical examination without abnormal findings [...] I10 09/18/2018 Appointment: Belia Reid WPtel: [facility] Annual Well Visit 09/18/2018 Patient Education: gabapentin- [employer] Coupon [id number] [phone] https://www.HomeSav/samplemd/resources/getResource/61/[email or web address]-[email or web address] Completed 09/18/2018 Visit Diagnosis Plan: Pain in [...] ICD-10 : M54.89 09/08/2018 Appointment: Pattie Sotomayor [address] [place], [place] [address] ACUTE ILLNESS 09/08/2018 Patient Education: prednisone- [employer] Coupon [id number] https://www.Biscoot.Pogoapp/samplemd/resources/getResource/61/[email or web address]-gm Completed 09/08/2018 Visit Diagnosis Plan: Acute stress [...] L29.9 08/20/2018 Appointment: [facility]el[facility] [facility] [facility] 08/20/2018 Patient Education: Lexapro- [employer] Coupon [id number] Completed 08/20/2018 Patient Education: hydroxyzine HCl- [employer] Coupon [id number] Completed 08/20/2018 Care Plan: MAMMOGRAM SCREENING [facility] : 2 6347-5 Pending 08/20/2018 Visit Diagnosis Plan: Paroxysmal atrial fibrillation D iscussion: Discuss eliquis need with cardiology at [facility] due to cost ICD-9 : 427.31 ICD-10 : I48.0 06/19/2018 Visit Diagnosis Plan: Hypotension due to drugs Discuss ion: Discussed decreasing cardizem dose due to low BP and edema but sees cardiology next week Follow Up: 1 months ICD-9 : 458.8 ICD-10 : I95.2 06/19/2018 Appointment: Belia Reid WPtel[facility] [facility] [facility] 06/19/2018 Visit Diagnosis Plan: [...] : R61 06/09/2018 Appointment: Belia Reid WPtel: [address] [place] [address] FOLLOW UP 06/09/2018 Care Plan: CHEST X-RAY 2VW FRONTAL&LATL LOINC : 12582-4 Pending 05/26/2018 Visit Diagnosis Plan: Stridor Discussion: [...] : I47.1 05/21/2018 Appointment: Belia Reid WPtel: [address] [place] [address] Hospital Follow Up 05/21/2018 Visit Diagnosis Plan: Cervical disc diso rder with radiculopathy, unspecified cervical region Discussion: Scheduled for surgery on 06/02 10/[address] Faulkner ICD-9 : 722.0 ICD-10 : M50.10 04/16/2018 Appointment: Belia Reid WPtel: [address] [place] [address] Hospital Follow Up 04/16/2018 Visit Diagnosis Plan: [...] ICD-10 : G43.919 04/01/2018 Appointment: Pattie Sotomayor [address] [place] [address] ACUTE ILLNESS 04/01/2018 Appointment: Belia Reid WPtel: [address] [place] [address] 03/17/2018 Visit Diagnosis Plan: Erythema intertrigo Discussio: [...] : J44.1 03/06/2018 Appointment: Belia Reid WPtel: [facility] Hospital Follow Up 03/06/2018 Visit Diagnosis Plan: Cervicalgia Discussion: spoke wi th dr. reid about patient. increased gabapentin to bid and started on celebrex bid. tramadrol rx written out to take prn. keep scheduled appt next week for myelogram. ICD-9 : 723.1 ICD-10 : M54.2 02/05/2018 Appointment: Pattie Sotomayor [address] [place] [address] ACUTE ILLNESS 02/05/2018 Care Plan: X-RAY EXAM NECK SPINE 4/5VWS cervical LOINC : 49127-6 Pending 01/21/2018 Visit Diagnosis Plan: Cervicalgia Discussion: [...] ICD-10 : B37.2 01/20/2018 Appointment: Pattie Sotomayor [address] [place] [address] ACUTE ILLNESS 01/20/2018 Visit Diagnosis Plan: Pain in thoracic spine Discussio n: Proceed with CT scan of thoracic spine Will likely need PT ICD-9 : 724.1 ICD-10 : M54.6 12/25/2017 Appointment: Belia Reid WPtel: [address] [place] [address] FOLLOW UP 12/25/2017 Care Plan: CT THORAX W/O DYE LOINC : 473 66-0 Pending 12/25/2017 Visit Diagnosis Plan: Pain in thoracic spine Discussio n: Stretches Alternated heat/ice Topical aspercreme with lidocaine Flexeril Recheck 1 week Flu and Pneumovax given ICD-9 : 724.1 ICD-10 : M54.6 12/17/2017 Appointment: Belia Ried WPtel: [address] [place] [address] ACUTE ILLNESS 12/17/2017 Patient Education: Patient Medication [...] : J44.1 10/30/2017 Appointment: Belia Reid WPtel: [address] [place] [address] FOLLOW UP 10/30/2017 Patient Education: Patient Medication Summary Completed 10/30/2017 Visit Diagnosis Plan: Chronic obstructiv e pulmonary disease with acute lower respiratory infection Discussion: Continue SVNs with albuterol q4hrs Add Trelagy 1 inhalation daily Finish steroids Increase water intake Follow Up: 1 weeks ICD-9 : 496 ICD-10 : J44.0 10/23/2017 Appointment: Belia Reid WPtel: [address] [place] [address] WORK IN 10/23/2017 Patient Education: Patient Medication Summary Completed 10/23/2017 Appointment: Belia Reid WPtel: [address] [place] [address] NO SHOW 10/16/2017 Visit Diagnosis Plan: Confusional [...] : E11.65 09/17/2017 Appointment: Belia Reid WPtel: [address] [place] [address] Annual Well Visit 09/17/2017 Patient Education: Patient Medication Summary Completed 09/17/2017 Appointment: Belia Reid WPtel: [address] [place], [place] [phone] US INJECTION 08/26/2017 Patient Education: Patient Medication Summary Completed 08/26/2017 Appointment: Belia Reid WPtel: [address] [place], [place] [phone] [place] CANCELED 07/31/2017 Visit Diagnosis Plan: Encounter [...] ICD-10 : J20.9 07/19/2017 Appointment: Pattie Sotomayor [address] [place], [place] [address] ACUTE ILLNESS 07/19/2017 Patient Education: Patient Medication Summary Completed 07/19/2017 Care Plan: MAMMOGRAM SCREENING LOINC : 2 6347-5 Pending 07/19/2017 Patient Education: Patient Medication Summary Completed 06/05/2017 Care Plan: LIPID PANEL LOINC : 76080-5 Pending 06/05/2017 Care Plan: A1C HPLC LOINC : 54620-1 Pending 06/05/2017 Visit Diagnosis Plan: Rash and [...] ICD-10 : R21 05/29/2017 Appointment: Pattie Sotomayor [address] [place], [place] [address] FOLLOW UP 05/29/2017 Patient Education: Patient Medication Summary Completed 05/29/2017 Visit Diagnosis Plan: Diarrhea, unspecified Discussion : Diflucan Cholestyramine Recheck 2weeks ICD-9 : 787.91 ICD-10 : R19.7 05/07/2017 Visit Diagnosis Plan: Tinea corporis Discussion: Diflu can and topical nystatin Follow Up: 2 weeks ICD-9 : 110.5 ICD-10 : B35.4 05/07/2017 Appointment: Bel[facility] Reid WPtel: [phone] [facility] [facility] 05/07/2017 Patient Education: Patient Medication Summary Completed 05/07/2017 Appointment: Belia Reid WPtel: [address] [place], [place] [phone] [place] RESCHEDULED 04/30/2017 Visit Diagnosis Plan: Stridor Discussion: Increase Ati van 0.5mg po to TID routinely for next week then can go back to prn ICD-9 : 786.1 ICD-10 : R06.1 03/18/2017 Visit Diagnosis Plan: Chronic obstructiv e pulmonary disease with (acute) exacerbation Discussion: Finish prednisone Continue S VNS with albuterol ICD-9 : 491.21 ICD-10 : J44.1 03/18/2017 Appointment: Belia Reid WPtel: [address] [place], [place] [phone] ER Follow UP 03/18/2017 Patient Education: Patient [...] : E11.65 02/27/2017 Appointment: Belia Reid WPtel: [address] [place], [place] [phone] [place] FOLLOW UP 02/27/2017 Patient Education: Patient [...] ICD-10 : E11.65 02/22/2017 Appointment: Pattie Sotomayor [address] [place], [place] [address] ACUTE ILLNESS 02/22/2017 Patient Education: [...] : J18.9 01/23/2017 Appointment: Belia Reid WPtel: [address] [place] [address] ER Follow UP 01/23/2017 Patient Education: Patient Medication Summary Completed 01/23/2017 Appointment: Pattie Sotomayor [address] [place] [address] CANCELED 01/17/2017 Appointment: Pattie Sotomayor [address] [place] [address] Annual Well Visit 01/14/2017 Visit Diagnosis Plan: Type 2 diabetes mellitus with hy perglycemia Discussion: Check CMP, HbA1C Flu shot and Prevnar 13 given Follow Up: 3 months ICD-9 : 250.02 ICD-10 : E11.65 12/20/2016 Visit Diagnosis Plan: Localized edema Discussion: Low Na diet Compression socks/Elevate feet ICD-9 : 782.3 ICD-10 : R60.0 12/20/2016 Appointment: Belia Reid WPtel: [facility] [place] [address] [place] FOLLOW UP 12/20/2016 Patient Education: Patient Medication Summary Completed 12/20/2016 Patient Education: Patient Medication Summary Completed 10/10/2016 Visit Plan: Xrays of cervical, thoracic and lumbar spine at [facility] for Mobic (stop NSAIDS except Tylenol) and Flexeril UA sent for C&S Using SVN Call in 2-3 days if pain not improved or any worsening 10/08/2016 Appointment: Celeste Ferreira WPtel: [address] [facility] ACUTE ILLNESS 10/08/2016 Patient Education: Patient [...] G43.909 09/19/2016 Appointment: Belia Reid WPtel: [facility]0 [facility] 09/18 confirmed`sl FOLLOW UP 09/19/2016 Patient Education: [...] 346.90 ICD-10 : G43.909 08/20/2016 Appointment: Belia eRid WPtel: [address] [facility] 08/16 confirmed~sl FOLLOW UP 08/20/2016 Patient Education: [...] : R06.1 06/19/2016 Appointment: Belia Reid WPtel: [address] [place], [place] [phone] 06/18 confirmed ~ Hospital Follow Up 06/19/2016 [...] Z87.440 06/04/2016 Appointment: Belia Reid WPtel: [address] [place], [place] [phone] 06/01 confirmed~ FOLLOW UP 06/04/2016 Patient Education: [...] : N30.90 05/02/2016 Appointment: Belia Reid WPtel: [address] [place], [place] [address] 05/01 confirmed ~ Hospital Follow Up 05/02/2016 [...] : M79.7 04/03/2016 Appointment: Belia Reid WPtel: [address] [place] [address] 04/02 confirmed~ Hospital Follow Up 04/03/2016 Patient Education: Patient Medication Summary Completed 04/03/2016 Visit Plan: Lungs are clear Her symptoms and exam are all upper airway restriction/constriction Can try supportive care Rx as above Follow up PRN 02/29/2016 Appointment: Lidia Hwang [address] [place] [address] ACUTE ILLNESS 02/29/2016 Patient Education: Patient Medication Summary Completed 02/29/2016 Visit Plan: Toradol/Phenergan today for Migraine Change to Clindamycin to cover lactobacillus for UTI Cover with flagyl due to hx of C. Diff 02/02/2016 Appointment: Belia Reid WPtel: [address] [place] [address] 01/31 confirmed`sl ACUTE ILLNESS 02/02/2016 Patient Education: Patient Medication Summary Completed 02/02/2016 Visit Plan: Increase neurontin to 300mg q AM and 600mg q PM Discussed neurology re-evaluation Flu shot given Need to check on Pneumonia shot Rx written out for albuterol 01/05/2016 Appointment: Belia Reid WPtel: [address] [place] [address] 01/03 confirmed ~sl Annual Well Visit 01/05/2016 Patient Education: Patient Medication Summary Completed 01/05/2016 Visit Plan: Cipro Culture urine hydrate Flexeril refilled Alternate heat and ice for back Increase gabapentin to 300mg po BID Notify if worsens 12/05/2015 Appointment: Belia Reid WPtel: [address] [place], [place] [phone] 11/30 confirmed~sl ACUTE ILLNESS 12/05/2015 Patient Education: Patient Medication Summary Completed 12/05/2015 Patient Education: Patient Medication Summary Completed 10/27/2015 Care Plan: [place] : 37373-1 Pending 10/27/2015 Care Plan: A1C HPLC LOINC : 04459-7 Pending 10/27/2015 Visit Plan: Lungs are CTA today and is f eeling improved overall Finish meds as ordered Continue inhalers and neb treatments Discussed migraine treatment options She does not feel she needs anything additional added today Refill of Januvia sent since no samples are available today 10/26/2015 Appointment: Lidia Hwang [address] [place] [address] Hospital Follow Up 10/26/2015 Appointment: Lidia Hwang [address] [place] [address] CANCELED 10/26/2015 Patient Education: Patient Medication Summary Completed 10/26/2015 Patient Education: Januvia - 18+ - KENNETH - No [place] Completed 10/26/2015 Visit Plan: Office dip still abnormal Cu lture pending Switch to cipro - stop macrobid Push fluids - avoid caffeine Will call with culture results when available Follow up if worsening 10/05/2015 Appointment: Lidia Hwang [address] [place] [address] ER Follow UP 10/05/2015 Patient Education: Patient Medication Summary Completed 10/05/2015 Visit Plan: Proceed with PT for document ation of ROM and strength of all extremities Proceed with Power Mobility Device Trial of neurontin 300mg q HS--lyrica helped but patient unable to afford Recheck 1month 09/15/2015 Appointment: Belia Reid WPtel: [phone] [facility] 09/13 confirmed~sl SPECIAL 09/15/2015 Patient Education: Patient Medication Summary Completed 09/15/2015 Visit Plan: Fille out Loan Discharge Pap erwork for total and permanent disability 08/25/2015 Patient Education: Patient Medication Summary Completed 08/25/2015 Visit Plan: Discussed with Dr Anushka Haywood at CT of head Will get last date of carotid doppler from her pediatric neuropsychologist and update if needed 08/24/2015 Appointment: Lidia Hawng [address] [place], [place] [phone] 08/22 confirmed~sl ACUTE ILLNESS 08/24/2015 Patient Education: Patient Medication Summary Completed 08/24/2015 Patient Education: Patient Medication Summary Completed 08/24/2015 Care Plan: US EXAM OF HEAD AND NECK carotid Ultrasound LOIN C : 70872-8 Pending 08/24/2015 Visit Plan: Long discussion about diet A ccuchecks daily Check HbA1C, CMP Change requip to mirapex 07/05/2015 Appointment: Belia Reid WPtel: [address] [place] [address] 07/03 confirmed ~sl FOLLOW UP 07/05/2015 Patient Education: Patient Medication Summary Completed 07/05/2015 Visit Plan: Add Breo ellipta 100 1 p BID Continue SVNs with duoneb QID 06/06/2015 Appointment: Belia Reid WPtel: [address] [place] [address] Patient is calling for a ride, then retu rning our call.-sp 06/01 called and patient stated she will know saturday if she can get a ride~sl 06/05 [facility] Hospital Follow Up 06/06/2015 Patient [...] not improving 05/23/2015 Appointment: Huong Osborne WPtel: [facility] ACUTE ILLNESS 05/23/2015 Appointment: Lidia Hwang [address] [facility] ER Follow UP 05/23/2015 Patient Education: Patient Medication Summary Completed 05/23/2015 Visit Plan: Check pancreatic enzymes and US of pancreas as patient can't understand why she has diabetes since has no family history Discussed weight, diet, exercise all play an important role in diabetes and are risk factors as well Continue Januvia and accuchecks daily 05/05/2015 Appointment: Belia Reid WPtel: [address] [place], [place] [phone] US FOLLOW UP 05/05/2015 Patient Education: Patient Medication Summary Completed 05/05/2015 Care Plan: US EXAM ABDOM COMPLETE LOINC : 98113-0 Ordered 05/05/2015 Visit Plan: Start Januvia 100mg daily [place] with diflucan and culture urine Accuchecks daily alternating times Recheck 6weeks 03/30/2015 Appointment: Belia Reid WPtel: [address] [place], [place] [address] 03/29 confirmed~lb FOLLOW UP 03/30/2015 Patient Education: Patient Medication Summary Completed 03/30/2015 Appointment: Belia Reid WPtel: [address] [place] [address] 03/01 needs reschedule due to payment and insurance ~sl FOLLOW UP 03/02/2015 Visit Plan: Patient was just in ER last night so has not filled scripts yet Start Carafate and Flagyl and Cipro Add Hyophen 1 po BID Recheck 1mo 02/03/2015 Appointment: Belia Reid WPtel: [address] [place], [place] [phone] [place] 02/02lm ~sl...02/03/15 appt confirmed cn ACUTE I LLNESS 02/03/2015 Patient Education: Patient Medication Summary Completed 02/03/2015 Visit Plan: Warm soaks to vaginal area K elex and Diflucan and observe Zofran to use prn 12/29/2014 Appointment: Belia Reid WPtel: [address] [place], [place] [phone] 12/28 Confirmed ~sl ACUTE ILLNESS 12/29/2014 Patient Education: Patient Medication Summary Completed 12/29/2014 Appointment: Huong Osborne WPtel: [address] [place], [place] [phone] FOLLOW UP 09/24/2014 Appointment: Belia Reid WPtel: [address] [place], [place] [phone] 09/15 confirmed -mf FOLLOW UP 09/16/2014 Visit Plan: Increase requip to 2mg po BI D Increase lyrica to 225mg total a day by adding an extra 75mg in AM Recheck in 2weeks Continue to patch left eye while sleeping 09/02/2014 Appointment: Belia Reid WPtel: [address] [place], [place] [address] 09/01 appt confirmed Hospital Follow Up 09/02 Patient Education: Patient Medication Summary Completed 09/02/2014 Visit Plan: To Yessenia dominguez observat ion to R/O CVA 08/25/2014 Appointment: Huong Osborne WPtel: [address] [place], [place] [phone] ACUTE ILLNESS 08/25/2014 Patient Education: Patient Medication Summary Completed 08/25/2014 Referral: Aaron Jonas WPtel: [facility] [address] [place] location Initiated 04/26/2014 Referral: [facility] Initiated 04/20/2014 Appointment: Belia Reid WPtel: [address] [place], [place] [phone] ER Follow UP 04/01/2014 Patient Education: Patient Medication Summary Completed 04/01/2014 Care Plan: MYELOGRAPHY NECK SPINE LOINC : 55683-9 Ordered 04/01/2014 Visit Plan: Continue Symbicort 160 at 2p BID Continue SVNs with duoneb at least QID Finish Levaquin Recheck 1mo on lyrica 03/16/2014 Appointment: Belia Reid WPtel: [address] [place], [place] [phone] 03/15 voicemail FOLLOW UP 03/16/2014 Patient Education: Patient Medication Summary Completed 03/16/2014 Visit Plan: Restart SVNs with duoneb QID Repeat prednisone Levaquin Continue symbicort Keep lyrica at same dose Recheck 1week 03/09/2014 Appointment: Belia Reid WPtel: [address] [place], [place] [address] FOLLOW UP 03/09/2014 Patient Education: Patient Medication Summary Completed 03/09/2014 Appointment: Belia Reid WPtel: [address] [place], [place] [phone] 03/03 showed up 15 minutes late for appt -- put her on Huong's side for 10:45am FORGIVEN PER DR FOLLOW UP 03/03/2014 Appointment: Huong Osborne WPtel: [address] [place] [address] FOLLOW UP 03/03/2014 Patient Education: Patient Medication Summary Completed 03/03/2014 Appointment: Huong Osborne WPtel: [address] [place], [place] [phone] ER Follow UP 03/01/2014 Patient Education: Patient Medication Summary Completed 03/01/2014 Visit Plan: Add carafate for this next m onth Increase lyrica to 150mg q HS 02/09/2014 Appointment: Belia Reid WPtel: [address] [place], [place] [address] [place] [address] Follow Up 02/09/2014 Patient Education: Patient Medication Summary Completed 02/09/2014 Visit Plan: Increase omeprazole back to 40mg po BID Use requip in AM and add lyrica 75mg q HS Recheck 1mo 12/23/2013 Appointment: Belia Reid WPtel: [address] [place], [place] [id number] FOLLOW UP 12/23/2013 Patient Education: Patient Medication Summary Completed 12/23/2013 Patient Education: Patient Medication Summary Completed 12/04/2013 Appointment: Belia Reid WPtel: [address] [place], [place] [phone] UA 10/30/2013 Patient Education: Patient Medication Summary Completed 10/30/2013 Appointment: Belia Reid WPtel: [address] [place], [place] [id number] UA 10/21/2013 Patient Education: Patient Medication Summary Completed 10/21/2013 Visit Plan: Cryotherapy as above TAC and hydroxyzine to use prn to itching spots and itching SKs Add Advair HFA 115/21 1 p BID 10/05/2013 Appointment: Belia Reid WPtel: [address] [place], [place] [id number] 10/01 pt called and confirmed ACUTE ILLNESS Patient Education: Patient Medication Summary Completed 10/05/2013 Appointment: Belia Reid WPtel: [address] [place], [place] [phone] will pay copay and part of past balance FOLLOW U P 08/04/2013 Patient Education: Patient Medication Summary Completed 08/04/2013 Appointment: Belia Reid WPtel: [address] [place], [place] [phone] [place] INJECTION 07/13/2013 Patient Education: Patient Medication Summary Completed 07/13/2013 Appointment: Huong Osborne WPtel: [address] [place], [place] [phone] ACUTE ILLNESS 07/03/2013 Patient Education: Patient Medication Summary Completed 07/03/2013 Visit Plan: Cipro and culture urine 05/27/2013 Appointment: Huong Osborne WPtel: [address] [place], [place] [id number] [place] 05/26 confirmed appt and notified that balance and copy messenger y is due at appt time FOLLOW UP 05/27/2013 Patient Education: Patient Medication Summary Completed 05/27/2013 Appointment: Belia Reid WPtel: [address] [place], [place] [id number] [place] UA 05/25/2013 Patient Education: Patient Medication Summary Completed 05/25/2013 Appointment: Belia Reid WPtel: [address] [place], [place] [phone] [place] INJECTION 05/04/2013 Patient Education: Patient Medication Summary Completed 05/04/2013 Appointment: Belia Reidtel: [address] [place], [place] [phone] [place] INJECTION 04/17/2013 Patient Education: Patient Medication Summary Completed 04/17/2013 Appointment: Belia Reid WPtel: [address] [place], [place] [phone] [place] INJECTION 04/15/2013 Appointment: Belia Reid WPtel: [address] [place], [place] [phone] 04/02 vm FOLLOW UP 04/06/2013 Patient Education: Patient Medication Summary Completed 04/06/2013 Visit Plan: Obtain lab results including UA from [facility] 11/10/2012 Appointment: Belia Reidtel: [address] [place], [place] [phone] ER Follow UP 11/10/2012 Patient Education: Patient Medication Summary Completed 11/10/2012 Appointment: Belia Reidtel: [address] [place], [place] [phone] 10/30/12 patient canceled appt due to fin ances. Offered to work something out, patient declined-LB FOLLOW UP 11/05/2012 Visit Plan: Continue Bystolic at current dose Pt has fwup with Neurology on September 16 09/02/2012 Appointment: Belia Reid WPtel: [address] [place], [place] [id number] FOLLOW UP 09/02/2012 Patient Education: Patient Medication Summary Completed 09/02/2012 Visit Plan: Continue bystolic at 5mg chris ly Sees Neurology tomorrow Use oxygen at bedtime 08/04/2012 Appointment: Belia Reid WPtel: [address] [place] [address] FOLLOW UP 08/04/2012 Patient Education: Patient Medication Summary Completed 08/04/2012 Appointment: Belia Reid WPtel: [address] [place] [address] Hospital fwup for 07/21/12. merged appointments FOLLOW UP 07/24/2012 Visit Plan: Start Bystolic 5mg daily for tachycardia Fwup with neurology for further workup Overnight O2 sat 07/21/2012 Appointment: Belia Reid WPtel: [address] [place] [address] Hospital Follow Up 07/21/2012 Patient Education: Patient Medication Summary Completed 07/21/2012 Visit Plan: SVN with Albuterol QID Add A velox 400mg daily Notify if worsens or persists 07/02/2012 Appointment: Belia Reid WPtel: [address] [place] [address] ACUTE ILLNESS 07/02/2012 Patient Education: Patient Medication Summary Completed 07/02/2012 Appointment: Belia Reid WPtel: [address] [place], [place] [id number] INJECTION 06/25/2012 Patient Education: Patient Medication Summary Completed 06/25/2012 Appointment: eBlia Reid WPtel: [address] [place], [place] [id number] FOLLOW UP 06/24/2012 Patient Education: Patient Medication Summary Completed 06/24/2012 [facility]ment[facility] [facility] [facility]19 left message FOLLOW UP 05/20/2012 [...] TID 05/08/2012 Appointment: [facility]el[facility] [phone] [facility] [facility] 05/08/2012 Patient Education: Patient Medication Summary Completed 05/08/2012 Visit Plan: Continue current meds Contin ue lower dose on pain meds and Diazepam Still waiting on paperwork for botox for Migraines Will restart Neurontin at 600mg po q HS Pt going to stop Depakote due to can't afford 04/22/2012 Appointment: Belia Reid WPtel: [address] [place] [id number] 04/21 Hospital Follow Up 04/22/2012 Patient Education: Patient Medication Summary Completed 04/22/2012 Visit Plan: Injection to shoulder as abo ve Continue current meds Has appointment with neurology on HAs in 02/13/2012 Appointment: Belia Reid WPtel: [address] [place], [place] [id number] Pt does not have $10 copay at [facility] t time - will bring it in next week. Kianna iqbal'ed this. - [place] FOLLOW UP 02/13/2012 Patient Education: Patient Medication Summary Completed 02/13/2012 Visit Plan: Proceed with headache specia list Change nexium to Protonix Phenergan to use prn Sumatriptan to use prn Pt still on Inderal 01/28/2012 Appointment: Belia Reid WPtel: [id number] [facility] Follow UP 01/28/2012 Patient Education: [...] for sleep 12/26/2011 Appointment: Belia Reid WPtel: [address] [place], [place] [phone] 12/24- appt. confirmed FOLLOW UP 2 Patient Education: Patient Medication Summary Completed 12/26/2011 Appointment: Belia Reid WPtel: [address] [place], [place] [phone] [place] FOLLOW UP 11/14/2011 Patient Education: Patient Medication Summary Completed 11/14/2011 Appointment: Belia Reid WPtel: [address] [place], [place] [phone] FOLLOW UP 09/12/2011 Patient Education: Patient Medication Summary Completed 09/12/2011 Visit Plan: Supportive care Decrease Liseth catalino to 50mg q HS Decrease AM dose of Valium to 5mg q HS Use Endocet sparingly 08/15/2011 Appointment: Belia Reid WPtel: [address] [place], [place] [phone] ER Follow UP 08/15/2011 Patient Education: Patient Medication Summary Completed 08/15/2011 Appointment: Belia Reid WPtel: [address] [place], [place] [phone] [place] Spoke directly to patient yesterday and confirmed the appoin tment. cn ACUTE ILLNESS 08/09/2011 Patient Education: Patient Medication Summary Completed 08/09/2011 Appointment: Belia Reid WPtel: [address] [place], [place] [phone] Hospital Follow Up 07/03/2011 Patient Education: Patient Medication Summary Completed 07/03/2011 Appointment: Belia Reid WPtel: [address] [place], [place] [phone] FOLLOW UP 06/04/2011 Patient Education: Patient Medication Summary Completed 06/04/2011 Visit Plan: Pt. wants "allergy shot" but in fact wants steroid shot. Will take a break from "generic Zyrtec they are getting from [facility]" and try Singulair for 2 weeks. 05/03/2011 Appointment: Iraida Jones WPtel: [address] [place], [place] [id number] ACUTE ILLNESS 05/03/2011 Patient Education: Patient Medication Summary Completed 05/03/2011 Visit Plan: Neurontin 400mg q HS for 1we ek then 800mg q HS Decrease requip to 1mg q HS for 2wks then stop Fwup 2mos 04/05/2011 Appointment: Belia Reid WPtel: [address] [place], [place] [phone] FOLLOW UP 04/05/2011 Patient Education: Patient Medication Summary Completed 04/05/2011 Visit Plan: Trial of neurontin in 2wks C ontinue current meds for stomach Pt has procedure with Dr. Ortiz next week for stone removal 03/08/2011 Appointment: Belia Reid WPtel: [address] [place], [place] [phone] Hospital Follow Up 03/08/2011 Patient Education: Patient Medication Summary Completed 03/08/2011 Appointment: Belia Reid WPtel: [address] [place], [place] [phone] FOLLOW UP 02/19/2011 Visit Plan: reports increased [...] with Flagyl 01/24/2011 Appointment: Iraida Jones WPtel: [address] [place] [address] ACUTE ILLNESS 01/24/2011 Patient Education: Patient Medication Summary Completed 01/24/2011 Appointment: Belia Reid WPtel: [address] [place] [address] [place] FOLLOW UP 01/02/2011 Patient Education: Patient Medication Summary Completed 01/02/2011 Appointment: Belia Reid WPtel: [address] [place] [address] FOLLOW UP 12/12/2010 Appointment: Belia Reid WPtel: [address] [place] [address] ACUTE ILLNESS 12/07/2010 Patient Education: Patient Medication Summary Completed 12/07/2010 Visit Plan: Increase Buspar to 10mg po B ID 11/16/2010 Appointment: Belia Reid WPtel: [address] [place] [address] FOLLOW UP 11/16/2010 Patient Education: Patient Medication Summary Completed 11/16/2010 Appointment: Iraida Jones WPtel: [address] [place] [address] ER Follow UP 11/02/2010 Patient Education: Patient Medication Summary Completed 11/02/2010 Visit Plan: Depo-Medrol/Kenalog given fo r allergies Add BuSpar for anxiety Oxycodone one p.o. q.i.d. for number 120 refilled 10/18/2010 Appointment: Belia Reid WPtel: [address] [place] [address] [place] FOLLOW UP 10/18/2010 Patient Education: Patient Medication Summary Completed 10/18/2010 Visit Plan: Continue current meds Discus sed epidurals for back vs PT--will proceed with epidurals to thoracolumbar region to see if helps with pain 09/19/2010 Appointment: Belia Reid WPtel: [address] [place], [place] [phone] FOLLOW UP 09/19/2010 Patient Education: Patient Medication Summary Completed 09/19/2010 Visit Plan: DC MS contin Check CT scan t horacic spine Fwup pending above results 09/06/2010 Appointment: Belia Reid WPtel: [address] [place], [place] [phone] FOLLOW UP 09/06/2010 Patient Education: Patient Medication Summary Completed 09/06/2010 Visit Plan: Continue current meds Restar t MS contin 15mg po BID and use oxycodone prn Use daily senokot-s 2 po BID 08/10/2010 Appointment: Belia Reid WPtel: [address] [place], [place] [phone] FOLLOW UP 08/10/2010 Patient Education: Patient Medication Summary Completed 08/10/2010 Visit Plan: Depomedrol/Kenalog given Pt sees ENT later this month Cont current meds Mammo scheduled 05/11/2010 Appointment: Belia Reid WPtel: [address] [place] [address] FOLLOW UP 05/11/2010 Patient Education: Patient Medication Summary Completed 05/11/2010 Appointment: Belia Reid WPtel: [address] [place], [place] [phone] [facility] 05/04/2010 Patient Education: Patient Medication Summary Completed 05/04/2010 Visit Plan: Pt sent to lab for UA 04/28/2010 Appointment: Belia Reid WPtel: [address] [place], [place] [phone] [facility] 04/28/2010 Patient Education: Patient Medication Summary Completed 04/28/2010 Visit Plan: Check CT angiogram of chest Restart Advair Use proair prn Cont current meds Fwup with Card as schedulec 04/06/2010 Appointment: Belia Reid WPtel: [address] [place], [place] [phone] [place] [address] Follow Up 04/06/2010 Patient Education: Patient Medication Summary Completed 04/06/2010 Visit Plan: Paperwork filled out for pow erchair Depomedrol/kenalog given Pt sees ENT in 2wks to assess nasal obstruction problems 02/09/2010 Appointment: Belia Reidtel: [address] [place], [place] [id number] 02/09/2010 Patient Education: Patient Medication Summary Completed 02/09/2010 Visit Plan: Change Elavil to Trazadone 1 50mg q HS Diflucan and nystatin for tinea cruris 01/05/2010 Appointment: Belia Reid WPtel: [address] [place] [address] FOLLOW UP 01/05/2010 Patient Education: Patient Medication Summary Completed 01/05/2010 Appointment: Belia Reid WPtel: [address] [place] [address] FOLLOW UP 12/07/2009 Patient Education: Patient Medication Summary Completed 12/07/2009 Appointment: Belia Reid WPtel: [address] [place] [address] FOLLOW UP 11/22/2009 Visit Plan: Cont current meds and await MRI results from Dr. Meadows's office and his final recommendations Will need to follow-up at later date on deviated septum 11/08/2009 Appointment: Belia Reid WPtel: [address] [place], [place] [phone] FOLLOW UP 11/08/2009 Patient Education: Patient Medication Summary Completed 11/08/2009 Visit Plan: Cont PT/OT See Neurosurgery Cont Tortoise shell brace 10/24/2009 Appointment: Belia Reid WPtel: [address] [place], [place] [phone] FOLLOW UP 10/24/2009 Patient Education: Patient Medication Summary Completed 10/24/2009 Appointment: Belia Reid WPtel: [phone] [facility] Hospital Follow Up 10/17/2009 Appointment: Belia Reid WPtel: [address] [place], [place] [phone] ACUTE ILLNESS 07/25/2009 Patient Education: Patient Medication Summary Completed 07/25/2009 Appointment: Belia Reid WPtel: [address] [place] [id number] FOLLOW UP 05/26/2009 Patient Education: Patient Medication Summary Completed 05/26/2009 Referral: Chino Balderas WPtel: [facility] [place] Referral Initiated Referral: Merry Vale WPtel: [facility] [id number] Vale will review referral and book appointment Completed Referral: Francisco Javier Yoder WPtel: [address] [id number] [place] Patient needs EGD insurance will not inc rease a medication unless this procedure results show a need Completed Referral: Francisco Javier Yoder WPtel: [address] [id number] [place] Referral Historical Reference Referral: Francisco Javier Yoder WPtel: [address] [id number] [place] Referral Initiated Instructions Comment . Xrays [...] last date of carotid doppler from her pediatric neuropsychologist and update if needed . Long discussion [...] from "generic Zyrtec they are getting from [facility]" and try Singulair for 2 weeks. . [...]
--- OUTSIDE RECORDS SUMMARY | 2019-08-27 07:56 | XMS REPORT | CCD ---
Author Author Diana Reid D.O. Organization [facility] Address [address] [place] [address] Phone Care Team Providers Care Food Scientist Name Role Phone Belia Reid D.O., PP Unavailable CCM Unavailable Summary Purpose Interface Exchange Insurance Providers Payer name Policy type / Coverage type Covered libertarian ID Effective Begin Date Effective End Date [employer] MEDICARE Medicare Part B [id number] 2019 Unknown Family History Family History data not found Social History Social History Element Codes Description Effective Dates Tobacco history SNOMED CT: 837300147 Nonsmoker 09/13/2010 Allergies, Adverse Reactions, Alerts Substance Reaction Codes Entered Date Inactivated Date Status Eggs reaction [id number] 09/15/2015 No Inactive Date Active _ Unknown [...] Fill Instructions Ativan 0.5 mg tablet RxNorm: 597922 1 Tablet(s) Oral th ree times a day for anxiety/shortness of air/stridor 07/29/2019 08/27/2019 Active Singulair 10 mg tablet RxNorm: 432446 1 Tablet(s) Oral QPM 07/29/19 20 01/25/2020 Active diltiazem CD 240 mg capsule,extended release 24 hr RxNorm: 8 59985 1 Capsule(s) Oral QD 07/15/2019 01/10/2020 Active metoprolol tartrate 50 mg tablet RxNorm: 063046 1 Table t(s) Oral two times a day 07/06/2019 No Stop Date Active Novolin N NPH U-100 Insulin isophane 100 unit/mL subcu taneous susp RxNorm: 011792 25 Unit(s) Subcutaneous two times a day 07/06/2019 07/06/2019 I nactive Colestid 1 gram tablet RxNorm: 4771526 1 Tablet(s) Oral two times a day for diarrhea 07/06/2019 09/04/2019 Active pramipexole 1 mg tablet RxNorm: 973836 1 Tablet(s) Oral QPM FOR RESTLESS LEGS (REPLACES REQUIP) 06/25/2019 06/19/2020 Active hydroxyzine HCl 25 mg tablet RxNorm: 219172 1 Tablet(s) Oral QPM for itching/aniety 06/25/2019 09/23/2019 Active Ativan 0.5 mg tablet RxNorm: 133184 1 Tablet(s) Oral th ree times a day for anxiety/shortness of air/stridor 06/25/2019 07/25/2019 Inactive Levaquin 500 mg tablet RxNorm: 894819 1 Tablet(s) Oral QD 06/16/2019 06/23/2019 Inactive Flagyl 500 mg tablet RxNorm: 053997 1 Tablet(s) Oral three time s a day 06/16/2019 06/23/2019 Inactive Vancocin 125 mg capsule RxNorm: 800094 1 Capsule(s) Oral four t imes a day 06/08/2019 06/18/2019 Inactive omeprazole 40 mg capsule,delayed release RxNorm: 216752 1 Capsule(s) Oral two times a day 05/26/2019 11/21/2019 Active Flagyl 500 mg tablet RxNorm: 159838 1 Tablet(s) Oral three time s a day 05/26/2019 06/05/2019 Inactive diltiazem CD 240 mg capsule,extended release 24 hr RxNorm: 8 18350 1 Capsule(s) Oral QD 05/26/2019 07/14/2019 Inactive Cipro 250 mg tablet RxNorm: 595468 1 Tablet(s) Oral two times a day 05/26/2019 06/02/2019 Inactive hydroxyzine HCl 25 mg tablet RxNorm: 080272 1 Tablet(s) Oral QPM for itching/aniety 05/21/2019 06/24/2019 Inactive metoprolol tartrate 25 mg tablet RxNorm: 497804 1 Table t(s) Oral two times a day 05/21/2019 07/05/2019 Inactive hydroxyzine HCl 25 mg tablet RxNorm: 820772 1 Tablet(s) Oral QPM for itching/aniety 05/13/2019 05/20/2019 Inactive Singulair 10 mg tablet RxNorm: 779034 1 Tablet(s) Oral QPM 05/06/1905/12/2019 Inactive gabapentin 600 mg tablet RxNorm: 076554 1 Tablet(s) Oral QD 020 06/05/2019 Inactive Valium 5 mg tablet RxNorm: 493342 1 Tablet(s) Oral QPM for stri joao/muscle spasm 04/29/2019 06/24/2019 Inactive baclofen 10 mg tablet RxNorm: 619050 1 Tablet(s) Oral QPM for s pasm/neck pain 04/24/2019 05/23/2019 Inactive baclofen 10 mg tablet RxNorm: 857046 1 Tablet(s) Oral QPM for s pasm/neck pain 04/24/2019 04/23/2019 Inactive Novolin N NPH U-100 Insulin isophane 100 unit/mL subcu taneous susp RxNorm: 585392 23 Unit(s) Subcutaneous two times a day 04/20/2019 07/05/2019 I nactive cyclobenzaprine 5 mg tablet RxNorm: 196078 1 Tablet(s) Oral three times a day as needed 04/16/2019 04/23/2019 Inactive hydroxyzine HCl 25 mg tablet RxNorm: 312388 1 Tablet(s) Oral three times a day for itching/aniety 04/08/2019 05/12/2019 Inactive gabapentin 600 mg tablet RxNorm: 983586 1 Tablet(s) Oral two ti mes a day 04/08/2019 05/05/2019 Inactive gabapentin 600 mg tablet RxNorm: 557015 1 Tablet(s) Oral two ti mes a day 04/08/2019 04/07/2019 Inactive Novolin N NPH U-100 Insulin isophane 100 unit/mL subcu taneous susp RxNorm: 145309 10 Unit(s) Subcutaneous two times a day 03/03/2019 04/19/2019 I nactive gabapentin 300 mg capsule RxNorm: 210116 1 Capsule(s) O ral every night at bedtime for neuropathy 02/26/2019 04/07/2019 Inactive gabapentin 300 mg capsule RxNorm: 482130 1 Capsule(s) O ral every night at bedtime for neuropathy 02/20/2019 02/25/2019 Inactive buspirone 5 mg tablet RxNorm: 177439 TAKE 1 TABLET THREE TIMES MILDRED Y 02/12/2019 05/12/2019 Inactive pramipexole 1 mg tablet RxNorm: 598012 1 Tablet(s) Oral QPM FOR RESTLESS LEGS (REPLACES REQUIP) 02/12/2019 06/24/2019 Inactive Lexapro 10 mg tablet RxNorm: 704616 TAKE 1 TABLET EVERY DAY FOR MOO D 01/31/2019 No Stop Date Active Ativan 0.5 mg tablet RxNorm: 706413 TAKE 1 TABLET BY MO UT THREE TIMES DAILY NEEDED FOR ANXIETY 01/26/2019 04/28/2019 Inactive Ativan 0.5 mg tablet RxNorm: 179070 TAKE 1 TABLET BY MO UT THREE TIMES DAILY NEEDED FOR ANXIETY 01/05/2019 01/05/2019 Inactive Levaquin 500 mg tablet RxNorm: 193871 1 Tablet(s) Oral QD 12/25/2018 12/24/2018 Inactive Levaquin 500 mg tablet RxNorm: 833885 1 Tablet(s) Oral QD 12/25/2018 01/04/2019 Inactive baclofen 10 mg tablet RxNorm: 693166 1 Tablet(s) Oral three maico es a day 11/20/2018 01/19/2019 Inactive Ativan 0.5 mg tablet RxNorm: 507001 TAKE 1 TABLET BY MO UT THREE TIMES DAILY NEEDED FOR ANXIETY 11/20/2018 01/04/2019 Inactive gabapentin 300 mg capsule RxNorm: 262504 1 Capsule(s) O ral every night at bedtime for neuropathy 11/20/2018 12/20/2018 Inactive Lexapro 10 mg tablet RxNorm: 063760 1 Tablet(s) PO QD for mood 07/201801/30/2019 Inactive Zithromax Z-Lj 250 mg tablet RxNorm: 591841 Tablet(s) PO take as directed 11/04/2018 11/19/2018 Inactive Insulin Syringe 1 mL 29 gauge x 1/2" RxNorm: 2 s yringes daily with insulin Dx: E11.65 10/08/2018 No Stop Date Active gabapentin 300 mg capsule RxNorm: 241302 1 Capsule(s) PO QHS fo r neuropathy 09/18/2018 10/17/2018 Inactive cyclobenzaprine 5 mg tablet RxNorm: 516176 1 Tablet(s) PO TID a s needed 09/09/2018 09/08/2018 Inactive cyclobenzaprine 5 mg tablet RxNorm: 682538 1 Tablet(s) PO TID a s needed 09/09/2018 10/08/2018 Inactive prednisone 20 mg tablet RxNorm: 421909 1 Tablet(s) PO QD 09/08/2018 0 09/12/2018 Inactive Lantus Solostar U-100 Insulin 100 unit/mL (3 mL) subcu taneous pen RxNorm: 302757 55 Unit(s) SQ QAM 08/28/2018 11/03/2018 Inactive hydroxyzine HCl 25 mg tablet RxNorm: 555047 1 Tablet(s) PO QHS for itching 08/20/2018 05/12/2019 Inactive Lexapro 10 mg tablet RxNorm: 622110 1 Tablet(s) PO QD for mood 08/0210/18/2018 Inactive sumatriptan 100 mg tablet RxNorm: 474581 1 Tablet(s) PO at headache onset. May repeat 1 in two hours if headache remains. Max of 2 per 24 hours 04/02/2018 05/20/2018 Inactive Diflucan 150 mg tablet RxNorm: 466734 1 Tablet(s) PO QD 03/18/2018 Inactive Diflucan 150 mg tablet RxNorm: 898582 1 Tablet(s) PO QD 03/18/2018 Inactive Flagyl 500 mg tablet RxNorm: 737780 1 Tablet(s) PO TID 03/17/2018 Inactive Levaquin 500 mg tablet RxNorm: 245528 1 Tablet(s) PO QD 03/17/2018 Inactive Levaquin 500 mg tablet RxNorm: 052315 1 Tablet(s) PO QD 03/17/2018 Inactive Flagyl 500 mg tablet RxNorm: 649043 1 Tablet(s) PO TID 03/17/2018 Inactive ketoconazole 200 mg tablet RxNorm: 560974 1 Tablet(s) PO QD 019 03/19/2018 Inactive Celebrex 200 mg capsule RxNorm: 054543 1 Capsule(s) PO BID 02/06/2005/20/2018 Inactive tramadol 50 mg tablet RxNorm: 551504 1 Tablet(s) PO TID as needed 1 04/08/2017 05/20/2018 Inactive gabapentin 300 mg capsule RxNorm: 770750 1 Capsule(s) PO BID 201705/20/2018 Inactive Diflucan 150 mg tablet RxNorm: 032299 1 Tablet(s) PO QD 01/20/2018 Inactive pramipexole 1 mg tablet RxNorm: 756752 1 Tablet(s) PO Q PM FOR RESTLESS LEGS (REPLACES REQUIP) 01/08/2018 02/11/2019 Inactive cyclobenzaprine 10 mg tablet RxNorm: 927247 1 Tablet(s) PO TID as needed for muscle spasm 12/17/2017 05/20/2018 Inactive pramipexole 1 mg tablet RxNorm: 929895 TAKE 1 TABLET BY MOUTH ONCE DAILY IN THE EVENING FOR RESTLESS LEGS (REPLACES REQUIP) 12/04/2017 01/05/2018 Inac tive Amaryl 4 mg tablet RxNorm: 953180 1 Tablet(s) PO BID replaces 2mg 0 11/05/2017 12/16/2017 Inactive Singulair 10 mg tablet RxNorm: 608899 1 Tablet(s) PO QHS for al lergies/lungs 10/30/2017 12/16/2017 Inactive Diflucan 100 mg tablet RxNorm: 771026 1 Tablet(s) PO QD 10/23/2017 Inactive Ativan 0.5 mg tablet RxNorm: 860274 TAKE 1 TABLET BY MOUTH THRE E TIMES DAILY 08/30/2017 11/20/2018 Inactive buspirone 5 mg tablet RxNorm: 764059 1 Tablet(s) PO TID 07/11/2017 Inactive propranolol 60 mg tablet RxNorm: 896518 1 Tablet(s) PO BID repl aces 40mg dose 06/26/2017 12/16/2017 Inactive Amaryl 4 mg tablet RxNorm: 634311 1 Tablet(s) PO BID replaces 2mg 0 06/12/2017 11/05/2017 Inactive omeprazole 40 mg capsule,delayed release RxNorm: 396788 1 Capsule(s) PO BID TAKE ONE CAPSULE BY MOUTH TWICE DAILY 05/30/2017 11/25/2017 Inactive pramipexole 1 mg tablet RxNorm: 451090 1 Tablet(s) PO Q PM for restless legs--replaces requip 05/30/2017 11/25/2017 Inactive amitriptyline 50 mg tablet RxNorm: 410724 1 Tablet(s) PO QHS 201709/16/2017 Inactive Diflucan 100 mg tablet RxNorm: 505691 1 Tablet(s) PO BID 05/07/2017 0 05/20/2017 Inactive nystatin (bulk) 100 million unit powder RxNorm: Application TO P BID 05/07/2017 05/20/2018 Inactive cholestyramine (with sugar) 4 gram oral powder RxNorm: 972607 1 Unit Dose PO QD 05/07/2017 01/20/2018 Inactive Ativan 0.5 mg tablet RxNorm: 677960 TAKE ONE TABLET BY MOUTH TH REE TIMES DAILY 05/01/2017 09/02/2017 Inactive Trulicity 1.5 mg/0.5 mL subcutaneous pen injector RxNorm: 15 10623 1 Unit Dose SQ WEEKLY 02/22/2017 03/23/2017 Inactive doxycycline hyclate 100 mg capsule RxNorm: 5556748 1 Capsule(s) PO BID 01/23/2017 02/05/2017 Inactive Amaryl 4 mg tablet RxNorm: 841813 1 Tablet(s) PO BID replaces 2mg 1 03/25/2016 05/22/2017 Inactive magnesium oxide 400 mg capsule RxNorm: 372126 1 Capsule(s) PO QD 07/18/2017 Inactive Ativan 0.5 mg tablet RxNorm: 448366 TAKE ONE TABLET BY MOUTH TH REE TIMES DAILY 01/17/2017 05/01/2017 Inactive Amaryl 2 mg tablet RxNorm: 962231 1 Tablet(s) PO BID 12/27/201601/22 Inactive Amaryl 2 mg tablet RxNorm: 902995 1 Tablet(s) PO BID 12/26/201612/26 Inactive Ativan 0.5 mg tablet RxNorm: 700761 TAKE ONE TABLET BY MOUTH TH REE TIMES DAILY 12/05/2016 01/18/2017 Inactive pramipexole 1 mg tablet RxNorm: 758467 1 Tablet(s) PO Q PM for restless legs--replaces requip 11/26/2016 05/30/2017 Inactive Mobic 15 mg tablet RxNorm: 465107 1 Tablet(s) PO QD 10/08/20162016 Inactive cyclobenzaprine 5 mg tablet RxNorm: 557849 1/2- 1 Tablet(s) PO TID 10/08/2016 10/17/2016 Inactive Ativan 0.5 mg tablet RxNorm: 175661 1 Tablet(s) PO TID 09/20/201607/2016 Inactive amitriptyline 50 mg tablet RxNorm: 063645 1 Tablet(s) PO QHS 201605/30/2017 Inactive propranolol 60 mg tablet RxNorm: 480631 1 Tablet(s) PO BID repl aces 40mg dose 09/19/2016 06/26/2017 Inactive Ativan 0.5 mg tablet RxNorm: 722573 1 Tablet(s) PO TID 08/20/2016 Inactive omeprazole 40 mg capsule,delayed release RxNorm: 784040 1 Capsule(s) PO BID TAKE ONE CAPSULE BY MOUTH TWICE DAILY 08/20/2016 05/30/2017 Inactive amitriptyline 50 mg tablet RxNorm: 851776 1 Tablet(s) PO QHS 201609/18/2016 Inactive pramipexole 1 mg tablet RxNorm: 193814 1 Tablet(s) PO Q PM for restless legs--replaces requip 07/23/2016 11/25/2016 Inactive Amaryl 2 mg tablet RxNorm: 298561 1 Tablet(s) PO BID 07/23/201612/27 Inactive propranolol 40 mg tablet RxNorm: 096899 1 Tablet(s) PO BID 07/13/19 17 09/18/2016 Inactive Ativan 0.5 mg tablet RxNorm: 868150 1 Tablet(s) PO QID 06/19/2016 Inactive Amaryl 2 mg tablet RxNorm: 928812 1 Tablet(s) PO BID 06/19/201607/22 Inactive Ativan 0.5 mg tablet RxNorm: 540839 1 Tablet(s) PO QID 06/19/2016 Inactive buspirone 5 mg tablet RxNorm: 891259 1 Tablet(s) PO TID 06/19/2016 Inactive Ativan 0.5 mg tablet RxNorm: 914019 1 Tablet(s) PO BID 05/24/2016 Inactive buspirone 5 mg tablet RxNorm: 604870 1 Tablet(s) PO TID 05/23/2016 Inactive Macrobid 100 mg capsule RxNorm: 795859 1 Capsule(s) PO QOD 05/03/19 17 10/07/2016 Inactive pramipexole 1 mg tablet RxNorm: 873395 Tablet(s) 1 Tabl et(s) PO QPM for restless legs--replaces requip 04/26/2016 06/24/2016 Inactive propranolol 40 mg tablet RxNorm: 319723 TAKE ONE TABLET BY MOUT H TWICE DAILY 04/26/2016 06/24/2016 Inactive Detrol LA 4 mg capsule,extended release RxNorm: 127424 1 Capsul e(s) PO QHS 04/03/2016 05/02/2016 Inactive prednisone 20 mg tablet RxNorm: 555542 1 Tablet(s) PO QD 02/29/2016 0 03/04/2016 Inactive Actos 30 mg tablet RxNorm: 774744 TAKE ONE TABLET BY MOUTH ONCE DAILY 02/27/2016 12/19/2016 Inactive clindamycin 300 mg capsule RxNorm: 300271 1 Capsule(s) PO TID 02/0102/08/2016 Inactive Flagyl 500 mg tablet RxNorm: 808053 1 Tablet(s) PO BID 02/02/201609/2015 Inactive omeprazole 40 mg capsule,delayed release RxNorm: 734133 TAKE ONE CAPSULE BY MOUTH TWICE DAILY 01/15/2016 07/12/2016 Inactive gabapentin 300 mg capsule RxNorm: 049274 1 Capsule(s) PO QAM an d 2 po q HS 01/05/2016 06/18/2016 Inactive gabapentin 300 mg capsule RxNorm: 046939 1 Capsule(s) P O BID 1 Capsule(s) PO QHS 12/05/2015 01/04/2016 Inactive cyclobenzaprine 10 mg tablet RxNorm: 288650 1 Tablet(s) PO TID for spasm as needed for muscle spasm 12/05/2015 06/18/2016 Inactive ciprofloxacin 250 mg tablet RxNorm: 944833 1 Tablet(s) PO BID 12/0412/14/2015 Inactive pramipexole 1 mg tablet RxNorm: 121982 Tablet(s) 1 Tabl et(s) PO QPM for restless legs--replaces requip 11/07/2015 11/26/2016 Inactive Januvia 100 mg tablet RxNorm: 130081 1 Tablet(s) PO QD 10/26/201504/2015 Inactive propranolol 40 mg tablet RxNorm: 895759 TAKE ONE TABLET BY MOUT H TWICE DAILY 10/25/2015 04/21/2016 Inactive gabapentin 300 mg capsule RxNorm: 993890 1 Capsule(s) PO QHS 201512/04/2015 Inactive Cipro 500 mg tablet RxNorm: 496083 1 Tablet(s) PO BID 10/05/2015 0811/2015 Inactive pramipexole 1 mg tablet RxNorm: 795241 Tablet(s) 1 Tabl et(s) PO QPM for restless legs--replaces requip 10/04/2015 11/02/2015 Inactive propranolol 40 mg tablet RxNorm: 038055 TAKE ONE TABLET BY MOUT H TWICE DAILY 09/26/2015 10/24/2015 Inactive Amaryl 2 mg tablet RxNorm: 276446 1 Tablet(s) PO QD 09/15/20152016 Inactive gabapentin 300 mg capsule RxNorm: 017894 1 Capsule(s) PO QHS 201510/14/2015 Inactive buspirone 5 mg tablet RxNorm: 706204 1 Tablet(s) PO TID 09/15/2015 Inactive pramipexole 1 mg tablet RxNorm: 749743 Tablet(s) 1 Tabl et(s) PO QPM for restless legs--replaces requip 09/08/2015 10/03/2015 Inactive pramipexole 1 mg tablet RxNorm: 152056 1 Tablet(s) PO Q PM for restless legs--replaces requip 08/08/2015 09/08/2015 Inactive Amaryl 2 mg tablet RxNorm: 404876 1 Tablet(s) PO QD 07/07/20152015 Inactive pramipexole 1 mg tablet RxNorm: 658691 1 Tablet(s) PO Q PM for restless legs--replaces requip 07/05/2015 08/03/2015 Inactive ropinirole 2 mg tablet RxNorm: 644391 TAKE ONE TABLET BY MOUTH TWICE DAILY 05/09/2015 09/14/2015 Inactive Diflucan 100 mg tablet RxNorm: 960701 1 Tablet(s) PO QD 03/30/2015 Inactive propranolol 40 mg tablet RxNorm: 273210 1 Tablet(s) PO BID 02/24/20 15 08/21/2015 Inactive [SAVINGS FOR UNINSURED PATIE NTS -- BIN:669099, PCN: ASPROD1, Group: AME08, ID# [id number], Process claim through Jibe, for questions: . THIS IS NOT INSURANCE.] Flagyl 500 mg tablet RxNorm: 319655 1 Tablet(s) PO BID 02/03/201502/2015 Inactive Cipro 500 mg tablet RxNorm: 778592 1 Tablet(s) PO BID 02/03/201502/01 Inactive Carafate 1 gram tablet RxNorm: 048930 1 Tablet(s) PO QID make i nto slurry 02/03/2015 09/14/2015 Inactive ondansetron HCl 4 mg tablet RxNorm: 991584 1 Tablet(s) PO Q4H as needed for nausea 12/29/2014 01/04/2016 Inactive Diflucan 100 mg tablet RxNorm: 982462 1 Tablet(s) PO QD 12/29/2014 Inactive Keflex 500 mg capsule RxNorm: 016516 1 Capsule(s) PO TID 12/29/2014 1 03/09/2014 Inactive omeprazole 40 mg capsule,delayed release RxNorm: 532952 1 Capsu le(s) PO BID 12/27/2014 12/21/2015 Inactive [SAVINGS FOR UNINSUR ED PATIENTS -- BIN:856365, PCN: ASPROD1, Group: AME08, ID# [id number], Process claim through Jibe, for questions: . THIS IS NOT INSURANCE.] ropinirole 2 mg tablet RxNorm: 808806 1 Tablet(s) PO BID 09/29/2014 0 03/27/2015 Inactive [SAVINGS FOR UNINSURED PATIENTS -- BIN:0 10244, PCN: ASPROD1, Group: AME08, ID# [id number], Process claim through [employer], for questions: . THIS IS NOT INSURANCE.] buspirone 5 mg tablet RxNorm: 229009 1 Tablet(s) PO TID 09/17/2014 Inactive ropinirole 2 mg tablet RxNorm: 579816 1 Tablet(s) PO BID 09/02/2014 0 09/28/2014 Inactive [SAVINGS FOR UNINSURED PATIENTS -- BIN:0 72749, PCN: ASPROD1, Group: AME08, ID# [id number], Process claim through Jibe, for questions: . THIS IS NOT INSURANCE.] Zyrtec 10 mg tablet RxNorm: 5187921 1 Tablet(s) PO QD 09/02/201412/02 Inactive propranolol 40 mg tablet RxNorm: 729764 1 Tablet(s) PO BID 07/21/19 15 02/23/2015 Inactive [SAVINGS FOR UNINSURED PATIE NTS -- BIN:220672, PCN: ASPROD1, Group: AME08, ID# [id number], Process claim through [employer], for questions: . THIS IS NOT INSURANCE.] ropinirole 2 mg tablet RxNorm: 993987 1 Tablet(s) PO QHS 05/14/2014 0 09/01/2014 Inactive [SAVINGS FOR UNINSURED PATIENTS -- BIN:0 05477, PCN: ASPROD1, Group: AME08, ID# [id number], Process claim through [employer], for questions: . THIS IS NOT INSURANCE.] cyclobenzaprine 10 mg tablet RxNorm: 524160 1 Tablet(s) PO QHS for spasm 04/06/2014 09/01/2014 Inactive ipratropium-albuterol 0.5 mg-3 mg(2.5 mg base)/3 mL ne bulization soln RxNorm: 6125097 1 Unit Dose INH Q4H 03/16/2014 No Stop Date Active [SAVINGS FOR UNINSURED PATIENTS -- BIN:763490, PCN: ASPROD1, Group: AME08, ID# [id number], Process claim through [employer], for questions: . THIS IS NOT INSURANCE.] prednisone 20 mg tablet RxNorm: 583629 1 Tablet(s) PO BID 03/09/2014 03/15/2014 Inactive [SAVINGS FOR UNINSURED PATIENTS -- BIN:0 43284, PCN: ASPROD1, Group: AME08, ID# [id number], Process claim through [employer], for questions: . THIS IS NOT INSURANCE.] ipratropium-albuterol 0.5 mg-3 mg(2.5 mg base)/3 mL ne bulization soln RxNorm: 6337092 1 Unit Dose INH Q4H 03/09/2014 03/15/2014 Inactive [SAVINGS FOR UNINSURED PATIENTS -- BIN:542447, PCN: ASPROD1, Group: AME08, ID# [id number], Process claim through [employer], for questions: . THIS IS NOT INSURANCE.] Levaquin 500 mg tablet RxNorm: 976797 1 Tablet(s) PO QD 03/09/2014 Inactive [SAVINGS FOR UNINSURED PATIENTS -- BIN:0 39776, PCN: ASPROD1, Group: AME08, ID# [id number], Process claim through [employer], for questions: . THIS IS NOT INSURANCE.] Carafate 1 gram tablet RxNorm: 441576 1 Tablet(s) PO AC & HS ma ke into slurry 02/09/2014 09/01/2014 Inactive [SAVINGS FOR UNINSUR ED PATIENTS -- BIN:277227, PCN: ASPROD1, Group: AME08, ID# [id number], Process claim through [employer], for questions: . THIS IS NOT INSURANCE.] Fioricet 50 mg-300 mg-40 mg capsule RxNorm: 9461492 1-2 Capsule(s) PO Q4H as needed for headache --max of 6 a day 02/09/2014 09/01/2014 Inactive [SAVINGS FOR UNINSURED PATIENTS -- BIN:395266, PCN: ASPROD1, Group: AME08, ID# [id number], Process claim through [employer], for questions: . THIS IS NOT INSURANCE.] propranolol 40 mg tablet RxNorm: 121014 1 Tablet(s) PO BID 12/08/19 14 06/04/2014 Inactive [SAVINGS FOR UNINSURED PATIE NTS -- BIN:352555, PCN: ASPROD1, Group: AME08, ID# [id number], Process claim through [employer], for questions: . THIS IS NOT INSURANCE.] buspirone 5 mg tablet RxNorm: 909208 1 Tablet(s) PO TID 12/02/2013 Inactive omeprazole 40 mg capsule,delayed release RxNorm: 831033 1 Capsu le(s) PO BID 11/25/2013 11/19/2014 Inactive [SAVINGS FOR UNINSUR ED PATIENTS -- BIN:043787, PCN: ASPROD1, Group: AME08, ID# [id number], Process claim through [employer], for questions: . THIS IS NOT INSURANCE.] ropinirole 2 mg tablet RxNorm: 158078 1 Tablet(s) PO QHS 11/10/2013 0 05/08/2014 Inactive [SAVINGS FOR UNINSURED PATIENTS -- BIN:0 46096, PCN: ASPROD1, Group: AME08, ID# [id number], Process claim through [employer], for questions: . THIS IS NOT INSURANCE.] Cipro 500 mg tablet RxNorm: 964386 1 Tablet(s) PO BID 10/21/201312/03 Inactive [SAVINGS FOR UNINSURED PATIENTS -- BIN:0 21361, PCN: ASPROD1, Group: AME08, ID# [id number], Process claim through [employer], for questions: . THIS IS NOT INSURANCE.] hydroxyzine HCl 25 mg tablet RxNorm: 584773 1 Tablet(s) PO Q4-6 H as needed 10/05/2013 01/04/2016 Inactive [SAVINGS FOR UNINSUR ED PATIENTS -- BIN:959716, PCN: ASPROD1, Group: AME08, ID# [id number], Process claim through [employer], for questions: . THIS IS NOT INSURANCE.] triamcinolone acetonide 0.1 % topical cream RxNorm: 0075641 Appl ication TOP BID 10/05/2013 09/01/2014 Inactive [SAVINGS FOR UNINSUR ED PATIENTS -- BIN:511878, PCN: ASPROD1, Group: AME08, ID# [id number], Process claim through [employer], for questions: . THIS IS NOT INSURANCE.] albuterol sulfate HFA 90 mcg/actuation aerosol inhaler RxNor m: 7213774 2 Puff(s) INH Q4H as needed for cough 10/01/2013 12/22/2013 Inactive [MAKSIM INGS FOR UNINSURED PATIENTS -- BIN:263368, PCN: ASPROD1, Group: AME08, ID# [id number], Process claim through [employer], for questions: . THIS IS NOT INSURANCE.] propranolol 40 mg tablet RxNorm: 604473 1 Tablet(s) PO BID 09/02/19 14 11/29/2013 Inactive [SAVINGS FOR UNINSURED PATIE NTS -- BIN:067408, PCN: ASPROD1, Group: AME08, ID# [id number], Process claim through [employer], for questions: . THIS IS NOT INSURANCE.] propranolol 40 mg tablet RxNorm: 396586 1 Tablet(s) PO BID 08/05/19 14 08/31/2013 Inactive [SAVINGS FOR UNINSURED PATIE NTS -- BIN:616135, PCN: ASPROD1, Group: AME08, ID# [id number], Process claim through [employer], for questions: . THIS IS NOT INSURANCE.] Toprol XL 50 mg tablet,extended release RxNorm: 606754 1 Tablet (s) PO QHS 07/23/2013 08/03/2013 Inactive Macrobid 100 mg capsule RxNorm: 218271 1 Capsule(s) PO BID 07/04/19 14 07/09/2013 Inactive Toprol XL 50 mg tablet,extended release RxNorm: 500738 1 Tablet (s) PO QHS 05/28/2013 06/26/2013 Inactive ciprofloxacin 500 mg tablet RxNorm: 542237 1 Tablet(s) PO BID 05/2706/02/2013 Inactive Bystolic 5 mg tablet RxNorm: 490133 1 Tablet(s) PO QD 05/27/201305/03 Inactive ropinirole 2 mg tablet RxNorm: 927468 1 Tablet(s) PO QHS 04/22/2013 0 11/09/2013 Inactive Cipro 250 mg tablet RxNorm: 084296 1 Tablet(s) PO BID 04/06/201311/2013 Inactive ropinirole 2 mg tablet RxNorm: 842172 1 Tablet(s) PO QHS 02/17/2013 0 04/21/2013 Inactive Amaryl 2 mg tablet RxNorm: 040908 1 Tablet(s) PO QAM 11/11/201211/10 Inactive Amaryl 2 mg tablet RxNorm: 460094 1 Tablet(s) PO QAM 11/11/201204/05 Inactive omeprazole 40 mg capsule,delayed release RxNorm: 682197 1 Capsu le(s) PO BID 08/14/2012 08/08/2013 Inactive Bystolic 5 mg tablet RxNorm: 784372 1 Tablet(s) PO QD 08/14/201205/03 Inactive propranolol 60 mg tablet RxNorm: 945790 Tablet(s) PO TAKE 1 TAB LET TWICE DAILY 08/01/2012 09/01/2012 Inactive Bystolic 5 mg tablet RxNorm: 447725 1 Tablet(s) PO QD 07/21/201207/02 Inactive Bystolic 5 mg tablet RxNorm: 619834 1 Tablet(s) PO QD 07/21/201207/03 Inactive Prilosec 40 mg capsule,delayed release RxNorm: 318593 1 Capsule (s) PO BID 06/24/2012 07/21/2012 Inactive buspirone 10 mg tablet RxNorm: 123044 1 Tablet(s) PO TID 05/08/2012 0 05/23/2016 Inactive Valium 10 mg tablet RxNorm: 217285 1 Tablet(s) PO BID 04/02/201207/03 Inactive Endocet 10 mg-325 mg tablet RxNorm: 8483534 1 Tablet(s) PO QID 03/0607/21/2012 Inactive as needed for severe pain Valium 10 mg tablet RxNorm: 137695 1 Tablet(s) PO BID 02/27/2012 No S top Date Active Endocet 10 mg-325 mg tablet RxNorm: 4478559 1 Tablet(s) PO QID 02/0203/27/2012 Inactive as needed for severe pain Endocet 10 mg-325 mg tablet RxNorm: 2942725 1 Tablet(s) PO QID 01/0302/26/2012 Inactive as needed for severe pain Valium 10 mg tablet RxNorm: 497299 1 Tablet(s) PO BID 01/29/2012 No S top Date Active Protonix 40 mg tablet,delayed release RxNorm: 425625 1 Tablet(s ) PO QD 01/28/2012 07/21/2012 Inactive metformin ER 500 mg tablet,extended release 24 hr RxNorm: 86 0977 1 Tablet(s) PO QD 12/26/2011 07/20/2012 Inactive Trazadone 150 mg Tablet RxNorm: 1 Tablet(s) PO QHS prn sleep 1 04/23/2012 Inactive Endocet 10 mg-325 mg tablet RxNorm: 5930537 1 Tablet(s) PO QID 12/0301/24/2012 Inactive as needed for severe pain Nexium 40 mg capsule,delayed release RxNorm: 422176 1 Capsule(s ) PO QD 12/26/2011 01/27/2012 Inactive Symbicort 160 mcg-4.5 mcg/actuation HFA Aerosol Inhaler RxNo rm: 2018687 2 Puff(s) INH BID 12/04/2011 07/21/2012 Inactive Endocet 10 mg-325 mg tablet RxNorm: 8381126 1 Tablet(s) PO QID 11/0312/25/2011 Inactive as needed for severe pain metformin ER 500 mg tablet,extended release 24 hr RxNorm: 86 0977 1 Tablet(s) PO QD 11/20/2011 12/19/2011 Inactive metformin ER 500 mg tablet,extended release 24 hr RxNorm: 86 0977 1 Tablet(s) PO QD 11/20/2011 11/19/2011 Inactive amitriptyline 100 mg tablet RxNorm: 008423 Tablet(s) PO QHS 1 a nd 1/2 tabs QHS 11/12/2011 11/13/2011 Inactive Valium 10 mg tablet RxNorm: 330895 1 Tablet(s) PO BID 11/09/2011 No S top Date Active Endocet 10 mg-325 mg tablet RxNorm: 2410333 1 Tablet(s) PO QID 10/0211/14/2011 Inactive as needed for severe pain Aricept 10 mg Tab RxNorm: 155478 1 Tablet(s) PO QD 10/05/2011 013 Inactive Valium 10 mg tablet RxNorm: 409487 1 Tablet(s) PO BID 10/05/2011 No S top Date Active Endocet 10 mg-325 mg Tab RxNorm: 8828408 1 Tablet(s) PO QID 012 10/09/2011 Inactive as needed for severe pain Aricept 10 mg Tab RxNorm: 814401 1 Tablet(s) PO QD 08/14/2011 012 Inactive Endocet 10 mg-325 mg Tab RxNorm: 1777952 1 Tablet(s) PO QID 012 08/31/2011 Inactive as needed for severe pain Valium 10 mg Tab RxNorm: 468230 1 Tablet(s) PO BID 08/02/2011 No Stop Date Active propranolol 60 mg tablet RxNorm: 675543 1 Tablet(s) PO BID 07/26/19 12 09/11/2011 Inactive amitriptyline 100 mg tablet RxNorm: 382587 Tablet(s) PO QHS 1 a nd / tabs QHS 06/20/2011 09/11/2011 Inactive buspirone 10 mg tablet RxNorm: 854854 1 Tablet(s) PO BID 06/18/2011 0 09/15/2011 Inactive propranolol 60 mg Tab RxNorm: 423927 1 Tablet(s) PO BID 06/18/2011 Inactive gabapentin 800 mg Tab RxNorm: 167203 1 Tablet(s) PO BID 06/18/2011 Inactive ropinirole 2 mg tablet RxNorm: 987253 1 Tablet(s) PO QHS 05/29/2011 0 08/26/2011 Inactive trimethoprim 100 mg Tab RxNorm: 095360 1 Tablet(s) PO QHS 05/29/2011 07/21/2012 Inactive Endocet 10 mg-325 mg Tab RxNorm: 9713723 1 Tablet(s) PO QID 012 2011 Inactive as needed for severe pain Valium 10 mg Tab RxNorm: 753384 1 Tablet(s) PO QHS N eed to take med as prescribed. this is a 40 day RX. No early fills. 05/17/2011 05/20/2018 Inactive propranolol 60 mg Tab RxNorm: 378624 1 Tablet(s) PO BID 04/16/2011 Inactive Neurontin 800 mg Tab RxNorm: 587583 1 Tablet(s) PO QHS 04/05/201103/2011 Inactive Endocet 10 mg-325 mg Tab RxNorm: 1849727 1 Tablet(s) PO QID 012 05/02/2011 Inactive as needed for severe pain oxycodone-acetaminophen 10 mg-325 mg tablet RxNorm: 0024029 1 Ta blet(s) PO Q4H 03/28/2011 05/19/2012 Inactive Valium 10 mg Tab RxNorm: 065870 1 Tablet(s) PO QHS 03/28/2011 012 Inactive buspirone 10 mg Tab RxNorm: 408806 1 Tablet(s) PO BID 03/27/201106/02 Inactive propranolol 60 mg Tab RxNorm: 663396 1 Tablet(s) PO BID 03/19/2011 Inactive Klor-Con M20 20 mEq Tab RxNorm: 2067758 1 Tablet(s) PO QD 03/19/2011 07/21/2012 Inactive Aricept 10 mg Tab RxNorm: 928223 1 Tablet(s) PO QD 02/27/2011 012 Inactive propranolol 60 mg Tab RxNorm: 992492 1 Tablet(s) PO BID 02/19/2011 Inactive omeprazole 40 mg capsule,delayed release RxNorm: 294248 1 Capsu le(s) PO BID 01/24/2011 05/23/2011 Inactive clindamycin 300 mg capsule RxNorm: 638849 1 Capsule(s) PO TID 01/2402/02/2011 Inactive propranolol 60 mg Tab RxNorm: 409613 1 Tablet(s) PO BID 01/22/2011 No Stop Date Active nystatin 100,000 unit/g Topical Cream RxNorm: 862906 Applicatio n TOP BID 01/15/2011 01/14/2011 Inactive to rash for 2-4 week s Diflucan 200 mg Tab RxNorm: 347808 1 Tablet(s) PO QD 01/15/201101/28 Inactive buspirone 10 mg Tab RxNorm: 340666 1 Tablet(s) PO BID 01/08/201103/05 Inactive Valium 10 mg Tab RxNorm: 326577 1 Tablet(s) PO QHS 01/05/2011 012 Inactive Diflucan 200 mg Tab RxNorm: 541914 1 Tablet(s) PO QD 01/01/201101/14 Inactive Diflucan 200 mg Tab RxNorm: 560925 1 Tablet(s) PO QD 12/18/201012/31 Inactive Valium 10 mg Tab RxNorm: 697483 1 Tablet(s) PO QHS 12/12/2010 011 Inactive Diflucan 200 mg Tab RxNorm: 675443 1 Tablet(s) PO QD 12/07/201012/18 Inactive Aricept 10 mg Tab RxNorm: 904489 1 Tablet(s) PO QD 11/20/2010 011 Inactive ropinirole 1 mg Tab RxNorm: 580511 1 Tablet(s) PO QHS 11/16/201005/03 Inactive enalapril maleate 5 mg Tab RxNorm: 452670 1 Tablet(s) PO QD 011 05/20/2018 Inactive buspirone 10 mg Tab RxNorm: 865830 1 Tablet(s) PO BID 11/16/201012/02 Inactive Valium 10 mg Tab RxNorm: 591114 1 Tablet(s) PO QHS 11/07/2010 011 Inactive Pyridium 100 mg Tab RxNorm: 8367941 1 Tablet(s) PO TID 11/02/201004/2010 Inactive Macrobid 100 mg Cap RxNorm: 6095703 1 Capsule(s) PO BID 11/02/2010 Inactive buspirone 10 mg Tab RxNorm: 881275 1 Tablet(s) PO QHS 10/18/201005/02 Inactive propranolol 60 mg Tab RxNorm: 274337 1 Tablet(s) PO BID 09/18/2010 Inactive Valium 10 mg Tab RxNorm: 473893 1 Tablet(s) PO QHS 09/05/2010 011 Inactive Aricept 10 mg Tab RxNorm: 219911 1 Tablet(s) PO QD 08/14/2010 011 Inactive Valium 10 mg Tab RxNorm: 404202 1 Tablet(s) PO QHS 06/26/2010 011 Inactive ropinirole 1 mg Tab RxNorm: 281510 1 Tablet(s) PO QHS 06/19/201010/02 Inactive omeprazole 40 mg Cap, delayed release RxNorm: 080927 1 Capsule( s) PO QD 06/07/2010 10/04/2010 Inactive Endocet 10 mg-325 mg Tab RxNorm: 4109702 1 Tablet(s) PO QID as needed for severe pain 06/07/2010 03/07/2011 Inactive Endocet 10 mg-325 mg Tab RxNorm: 2098176 1 Tablet(s) PO QID as needed for severe pain 05/04/2010 06/02/2010 Inactive Valium 10 mg Tab RxNorm: 154374 1 Tablet(s) PO QHS 05/01/2010 011 Inactive propranolol 60 mg Tab RxNorm: 469237 1 Tablet(s) PO BID 04/03/2010 Inactive Valium 10 mg Tab RxNorm: 786779 1 Tablet(s) PO QHS 03/28/2010 011 Inactive omeprazole 40 mg Cap, Delayed Release RxNorm: 286669 1 Capsule( s) PO QD 03/28/2010 06/06/2010 Inactive Endocet 10 mg-325 mg Tab RxNorm: 7318557 1 Tablet(s) PO QID prn ari n 03/27/2010 05/20/2018 Inactive Valium 10 mg Tab RxNorm: 655837 1 Tablet(s) PO QHS 02/20/2010 011 Inactive Diflucan 100 mg Tab RxNorm: 605982 1 Tablet(s) PO BID 01/23/201003/2009 Inactive Diflucan 100 mg Tab RxNorm: 025884 1 Tablet(s) PO BID 01/05/201001/02 Inactive Aricept 10 mg Tab RxNorm: 175583 1 Tablet(s) PO QD 12/01/2009 011 Inactive OxyContin 20 mg 12 hr Tab RxNorm: 3754456 1 Tablet(s) PO BID 200904/05/2010 Inactive oxycodone-acetaminophen 10 mg-325 mg Tab RxNorm: 9582309 1 Table t(s) PO Q4H 11/22/2009 11/26/2009 Inactive Phenergan 25 mg Tab RxNorm: 477500 1 Tablet(s) PO PRN MIGRAINE 11/0303/07/2011 Inactive Demerol 100 mg Tab RxNorm: 137673 1 Tablet(s) PO PRN MIGRAINE 11/2203/07/2011 Inactive Oxycodone-Acetaminophen 10 mg-325 mg Tab RxNorm: 6591951 1 Table t(s) PO Q4H 10/11/2009 10/15/2009 Inactive Percocet 10 mg-325 mg Tab RxNorm: 1685276 1 Tablet(s) PO Q4H 200910/24/2009 Inactive propranolol 60 mg Tab RxNorm: 362681 1 Tablet(s) PO BID 08/29/2009 Inactive Valium 10 mg Tab RxNorm: 575392 1 Tablet(s) PO QHS 08/16/2009 010 Inactive Keflex 500 mg Cap RxNorm: 956899 1 Capsule(s) PO BID 07/25/200907/31 Inactive Hydroxyzine 25 mg Tab RxNorm: 799334 1 Tablet(s) PO TID 07/25/2009 Inactive Prednisone 20 mg Tab RxNorm: 660135 1 Tablet(s) PO BID 07/25/2009 Inactive Demerol 100 mg Tab RxNorm: 577764 1 Tablet(s) PO PRN MIGRAINE 07/25 No Stop Date Active Ropinirole 1 mg Tab RxNorm: 109763 1 Tablet(s) PO HS 07/20/200902/14 Inactive Valium 10 mg Tab RxNorm: 842280 1 Tablet(s) PO QHS 07/18/2009 010 Inactive Endocet 10 mg-325 mg Tab RxNorm: 2703760 1 Tablet(s) PO TID 010 07/07/2009 Inactive Demerol 100 mg Tab RxNorm: 070857 1 Tablet(s) PO PRN MIGRAINE 06/08 No Stop Date Active Ropinirole 1 mg Tab RxNorm: 887321 1 Tablet(s) PO HS 05/16/200907/14 Inactive ipratropium-albuterol 0.5 mg-3 mg(2.5 mg base)/3 mL ne bulization soln RxNorm: 0920286 1 Unit Dose INH Q4H as needed No Start Date Active MagOx 400 mg (241.3 mg magnesium) tablet RxNorm: 983566 1 Table t(s) PO BID No Start Date Active Vitamin B12 1000mcg Tablet RxNorm: 1 Tablet(s) PO QD No Start Date Active Vitamin D3 5,000 unit tablet RxNorm: 860305 1 Tablet(s) PO QD No Star t Date Active Tylenol Arthritis Pain 650 mg tablet,extended release RxNorm : 8778266 1 Tablet(s) PO Q4H No Start Date Active Lotrimin AF 2 % topical powder RxNorm: 333282 1 Application TOP BID No Start Date Active enalapril maleate 5 mg Tab RxNorm: 036567 1 Tablet(s) PO QD No Star t Date 07/20/2012 Inactive Demerol 100 mg Tab RxNorm: 432082 Tablet(s) PO PRN MIGRAINE No Star t Date 06/02/2009 Inactive metformin 500 mg tablet RxNorm: 358819 1 Tablet(s) PO QD No Start D ate 04/05/2013 Inactive Breo Ellipta 100 mcg-25 mcg/dose powder for inhalation RxNor m: 2969534 1 Puff(s) INH BID No Start Date 01/04/2016 Inactive Mag-Oxide 400 mg Tab RxNorm: 431653 1 Tablet(s) PO QD No Start Date 0 07/21/2012 Inactive Cipro 500 mg Tab RxNorm: 931755 1 Tablet(s) PO QD No Start Date 04/05 Inactive Ativan 0.5 mg tablet RxNorm: 824838 1 Tablet(s) PO TID as needed No Start Date 05/06/2019 Inactive melatonin 3 mg tablet RxNorm: 922865 2 Tablet(s) PO QHS No Start Da te 08/19/2018 Inactive buspirone 10 mg Tab RxNorm: 831488 1 Tablet(s) PO QD No Start Date Inactive sucralfate 100 mg/mL Oral Susp RxNorm: 393467 2 Teaspoon(s) PO QID No Start Date 07/21/2012 Inactive hydrocodone 5 mg-acetaminophen 325 mg tablet RxNorm: 977902 1 Tablet(s) PO Q4H as needed No Start Date 08/19/2018 Inactive Amaryl 2 mg tablet RxNorm: 931667 1 Tablet(s) PO BID No Start Date Inactive OxyContin 20 mg 12 hr Tab RxNorm: 2406974 1 Tablet(s) PO BID No Sta rt Date 11/27/2009 Inactive propranolol 40 mg tablet RxNorm: 371113 1 Tablet(s) PO QID No Start Date 01/19/2018 Inactive Trazadone 150 mg Tablet RxNorm: 1-2 Tablet(s) PO QHS prn sleep No Start Date 08/09/2010 Inactive propranolol 60 mg Tab RxNorm: 800162 1/2 Tablet(s) PO BID No Start Date 01/21/2011 Inactive insulin NPH and regular human subcutaneous RxNorm: 0122936 subcu taneous No Start Date 11/20/2018 Inactive Ativan 0.5 mg tablet RxNorm: 334332 1 Tablet(s) PO QID No Start Date 06/18/2016 Inactive Vasotec 5 mg Tab RxNorm: 139478 1 Tablet(s) PO BID No Start Date 06/2011 Inactive Toprol XL 50 mg tablet,extended release RxNorm: 106434 1 Tablet (s) PO BID No Start Date 04/05/2013 Inactive Ativan 0.5 mg tablet RxNorm: 124067 1 Tablet(s) PO TID No Start Date 05/25/2016 Inactive Klor-Con M20 20 mEq Tab RxNorm: 0146939 1 Tablet(s) PO QD No Start Date 03/19/2011 Inactive sumatriptan 100 mg tablet RxNorm: 059543 1 Tablet(s) PO at headache onset--repeat in 2hrs if remains No Start Date 07/21/2012 Inactive propranolol 60 mg Tab RxNorm: 335478 1 Tablet(s) PO BID No Start Da te 08/28/2009 Inactive Cholestyramine Light 4 gram Oral Powder RxNorm: 8583610 1 Unit Dose PO QD in water No Start Date 07/21/2012 Inactive nystatin 100,000 unit/g Topical Powder RxNorm: 516724 Applicati on TOP BID No Start Date 07/21/2012 Inactive vitamin C78-genma acid sublingual RxNorm: sublingual No Start Date 07/05/2013 Inactive cyclobenzaprine 5 mg tablet RxNorm: 508891 1/2-1 Tablet (s) PO TID as needed for muscle spasm No Start Date 07/18/2017 Inactive tramadol 50 mg tablet RxNorm: 464913 2 Tablet(s) PO TID as need ed for pain No Start Date 09/01/2014 Inactive aspirin 81 mg Tab RxNorm: 600497 1 Tablet(s) PO QOD No Start Date 04/2013 Inactive Vitamin B12 1000mcg Tablet RxNorm: 1 Tablet(s) PO QD No Start Date 07/18/2017 Inactive cholestyramine (with sugar) 4 gram oral powder RxNorm: 91830 3 1 Unit(s) PO QD as needed No Start Date 05/20/2018 Inactive ProAir HFA 90 mcg/Actuation Aerosol Inhaler RxNorm: 283139 2 Puff(s) INH Q4H prn shortness of breath No Start Date 07/21/2012 Inactive pravastatin 10 mg Tab RxNorm: 010110 1 Tablet(s) PO QD No Start Date 07/21/2012 Inactive gabapentin 800 mg Tab RxNorm: 936934 1 Tablet(s) PO BID No Start Da te 06/03/2011 Inactive Endocet 10 mg-325 mg Tab RxNorm: 9147916 1 Tablet(s) PO TID No Star t Date 06/02/2009 Inactive Naproxen 500 mg Tab RxNorm: 707421 1 Tablet(s) PO BID No Start Date 0 04/05/2010 Inactive Valium 10 mg Tab RxNorm: 276495 1 Tablet(s) PO BID No Start Date 07/04 Inactive enalapril maleate 5 mg Tab RxNorm: 111737 1 Tablet(s) PO QD No Star t Date 11/15/2010 Inactive doxepin 10 mg capsule RxNorm: 5001604 2 Capsule(s) PO QHS No Start Date 09/17/2018 Inactive MS Contin 15 mg Tab RxNorm: 661748 1 Tablet(s) PO BID No Start Date 0 09/18/2010 Inactive buspirone 5 mg tablet RxNorm: 355625 1 Tablet(s) PO TID No Start Da te 12/01/2013 Inactive [place] 3 Fish Oil Cap RxNorm: 1 Capsule(s) PO QD No Start Date 07/03 Inactive enalapril maleate 5 mg Tab RxNorm: 720491 1/2 Tablet(s) PO QD No St art Date 03/07/2011 Inactive Lyrica 75 mg capsule RxNorm: 641948 1 Capsule(s) PO QHS No Start Da te 02/08/2014 Inactive Lopressor 100 mg tablet RxNorm: 271842 1 Tablet(s) PO BID No Start Date 06/08/2018 Inactive Lantus Solostar U-100 Insulin 100 unit/mL (3 mL) subcu taneous pen RxNorm: 556288 45 Unit(s) SQ QAM No Start Date 05/20/2018 Inactive aspirin 81 mg tablet RxNorm: 891789 1 Tablet(s) PO QD No Start Date 0 09/14/2015 Inactive diltiazem CD 240 mg capsule,extended release 24 hr RxNorm: 8 46594 1 Capsule(s) PO QD No Start Date 05/25/2019 Inactive insulin NPH isophane U-100 human subcutaneous RxNorm: 278563 beckwith bcutaneous No Start Date 04/20/2019 Inactive sumatriptan 100 mg tablet RxNorm: 429286 1 Tablet(s) PO at headache onset. May repeat 1 in two hours if headache remains. Max of 2 per 24 hours No Start Date 04/01/2018 Inactive gabapentin 300 mg capsule RxNorm: 132987 1 Capsule(s) PO QHS No Sta rt Date 02/04/2018 Inactive Topamax 25 mg Tab RxNorm: 406923 Oral No Start Date 03/07/2011 In active Senokot-S 8.6 mg-50 mg Tab RxNorm: 2029301 1 Tablet(s) PO QD No Sta rt Date 03/07/2011 Inactive metformin ER 500 mg 24 hr tablet,extended release RxNorm: 18 60515 1 Tablet(s) PO QD No Start Date 05/20/2018 Inactive Symbicort 80 mcg-4.5 mcg/actuation HFA Aerosol Inhaler RxNor m: 4516678 2 Puff(s) INH BID No Start Date 04/05/2013 Inactive metoprolol tartrate 25 mg tablet RxNorm: 476500 1 Tablet(s) PO BID No Start Date 05/20/2019 Inactive propranolol 60 mg Tab RxNorm: 501980 1/2 Tablet(s) PO BID No Start Date 07/21/2012 Inactive metformin ER 500 mg 24 hr tablet,extended release RxNorm: 18 98482 2 Tablet(s) PO QD No Start Date 12/16/2017 Inactive Insulin Syringe 1 mL 29 gauge x 1/2" RxNorm: 2 s yringes daily with insulin Dx: E11.65 No Start Date 10/07/2018 Inactive Amitriptyline 75 mg Tab RxNorm: 836744 1 Tablet(s) PO QHS No Start Date 10/23/2009 Inactive donepezil 10 mg Tab RxNorm: 436319 1 Tablet(s) PO QD No Start Date Inactive Lantus Solostar U-100 Insulin 100 unit/mL (3 mL) subcu taneous pen RxNorm: 243200 36 Unit(s) SQ QAM No Start Date 12/24/2017 Inactive Miacalcin 200 unit/Actuation Nasal Independence Aerosol RxNorm: 261 204 1 Independence NASAL QD Alternate nostrils each day No Start Date 04/05/2010 Inactive Amitriptyline 150 mg Tab RxNorm: 509369 1 Tablet(s) PO QHS No Start Date 01/04/2010 Inactive Bystolic 5 mg tablet RxNorm: 570465 1 Tablet(s) PO QD No Start Date 0 08/13/2012 Inactive Aricept 10 mg Tab RxNorm: 426252 1 Tablet(s) PO QD No Start Date 11/03 Inactive Lantus Solostar U-100 Insulin 100 unit/mL (3 mL) subcu taneous pen RxNorm: 567602 50 Unit(s) SQ QAM No Start Date 08/27/2018 Inactive albuterol sulfate 2.5 mg/3 mL (0.083 %) Neb Solution RxNorm: 241027 1 Unit Dose INH QID as needed No Start Date 08/23/2015 Inactive Symbicort 160 mcg-4.5 mcg/actuation HFA Aerosol Inhaler RxNo rm: 3621989 2 Puff(s) INH BID No Start Date 12/03/2011 Inactive Savella 50 mg Tab RxNorm: 508816 1 Tablet(s) PO BID No Start Date 04/2010 Inactive amitriptyline 100 mg Tab RxNorm: 000301 1 1/2 Tablet(s) PO QHS No S tart Date 06/19/2011 Inactive nystatin 100,000 unit/g Topical Cream RxNorm: 979180 Ap plication TOP BID to rash for 2-4 weeks No Start Date 01/14/2011 Inactive Trelegy Ellipta 100 mcg-62.5 mcg-25 mcg powder for inhalatio n RxNorm: 2024657 1 Puff(s) INH QD No Start Date 12/16/2017 Inactive Lyrica 150 mg capsule RxNorm: 485648 1 Capsule(s) PO QHS No Start D ate 12/04/2015 Inactive sennosides 8.6 mg tablet RxNorm: 136528 1 Tablet(s) PO BID No Start Date 09/07/2018 Inactive metformin ER 500 mg tablet,extended release 24 hr RxNorm: 86 0975 1 Tablet(s) PO QD No Start Date 10/22/2017 Inactive Fish Oil 1,000 mg Cap RxNorm: 1 Capsule(s) PO QD No Start Date 06/2011 Inactive Zyrtec 10 mg Tab RxNorm: 5016948 1 Tablet(s) PO QD No Start Date 07/03 Inactive albuterol sulfate HFA 90 mcg/actuation aerosol inhaler RxNor m: 1555766 2 Puff(s) INH Q4H as needed for cough No Start Date 09/30/2013 Inactive trazodone 150 mg tablet RxNorm: 141452 1 Tablet(s) PO QHS No Start Date 07/21/2012 Inactive Spiriva with HandiHaler 18 mcg & inhalation capsules RxNorm: 381034 1 Capsule(s) INH QD No Start Date 04/05/2013 Inactive Coreg 3.125 mg Tab RxNorm: 357019 1 Tablet(s) PO BID No Start Date Inactive Phenergan 25 mg Tab RxNorm: 037676 Tablet(s) PO PRN MIGRAINE No Sta rt Date 11/21/2009 Inactive Vitamin D 50,000 unit Cap RxNorm: 5421738 1 Capsule(s) PO QW No Sta rt Date 03/07/2011 Inactive Januvia 100 mg tablet RxNorm: 143713 1 Tablet(s) PO QD No Start Date 10/25/2015 Inactive Eliquis 5 mg tablet RxNorm: 8799674 1 Tablet(s) PO BID No Start Date 08/19/2018 Inactive Advair Diskus 500 mcg-50 mcg/Dose for Inhalation RxNorm: 900831 1 INH BID No Start Date 07/21/2012 Inactive Vitamin D3 5,000 unit tablet RxNorm: 466717 1 Tablet(s) PO QD No St art Date 07/18/2017 Inactive Amaryl 2 mg tablet RxNorm: 935980 1 Tablet(s) PO QD No Start Date 06/2015 Inactive Actos 30 mg tablet RxNorm: 280680 1 Tablet(s) PO QD No Start Date Inactive promethazine 25 mg tablet RxNorm: 075465 1 Tablet(s) PO Q4H prn N/V No Start Date 07/21/2012 Inactive ProAir HFA 90 mcg/actuation Aerosol Inhaler RxNorm: 414895 2 Puff(s) INH Q4H prn dyspnea No Start Date 07/21/2012 Inactive Dexilant 60 mg Capsule RxNorm: 255637 1 Capsule(s) PO QD No Start D ate 01/27/2012 Inactive Lantus Solostar U-100 Insulin 100 unit/mL (3 mL) subcu taneous pen RxNorm: 866571 38 Unit(s) SQ QAM No Start Date 05/20/2018 Inactive Valium 10 mg Tab RxNorm: 826901 1 Tablet(s) PO QHS AND PRN No Start Date 10/24/2009 Inactive ZOFRAN ODT 8 mg disintegrating tablet RxNorm: 970454 1 Tablet(s ) PO Q6H No Start [...] Date S ervice Location MICROALBUMIN URINE RANDOM 20595 MICRL MG/L 14.9 MG/L Unknown MICROALBUMIN URINE RANDOM 85817 XM.ALB/CRE 6.1 MG/GCR Unknown MICROALBUMIN URINE RANDOM 20120 CREAT MG/D 243 MG/DL Unknown MICROALBUMIN URINE RANDOM 13647 CRE/100 2.43 G/L 03/05 Unknown PROTEIN/CREAT URINE WITH RATIO 68312|45069 PROT R U 14 MG/D L 04/01/2014 Unknown PROTEIN/CREAT URINE WITH RATIO 29301|31684 CREAT R U 254 MG/ DL 04/01/2014 Unknown PROTEIN/CREAT URINE WITH RATIO 81452|21844 XRATIO P/C 55 MG/ G 04/01/2014 Unknown URINALYSIS 67251 PROTEIN UR NEG 04/28/2010 Unknown URINALYSIS 43777 HEMGLBN UR NEG 04/28/2010 Unknown URINALYSIS 40194 GLUCOSE UR NEG 04/28/2010 Unknown URINALYSIS 26816 KETONES UR NEG 04/28/2010 Unknown URINALYSIS 44879 PH U 5.5 04/28/2010 Unknown URINALYSIS 29994 SP GR U 1.025 04/28/2010 Unknown URINALYSIS 16238 BILRUBN UR NEG 04/28/2010 Unknown URINALYSIS 37666 LEUKO UR 2+ 04/28/2010 Unknown URINALYSIS 14652 NITRITE UR NEG 04/28/2010 Unknown MICR CUL? [id number] WBC/HPF 6-10 04/28/2010 Unknown MICR CUL? [id number] RBC/HPF 0-5 04/28/2010 Unknown MICR CUL? [id number] HYAL CAST 16-25 04/28/2010 Unknown MICR CUL? [id number] SP TO YOLIE? NO 04/28/2010 Unknown MICR CUL? [id number] APPEAR UR NORMAL 04/28/2010 Unknown MICR CUL? [id number] SQ EPI/LPF FEW 04/28/2010 Unknown Procedures Procedure Codes Date URINALYSIS NONAUTO W/O SCOPE CPT-4: 72905 04/16/2019 URINE CULTURE/ COLONY COUNT CPT-4: 62166 04/16/2019 CEFTRIAXONE SODIUM INJECTION CPT-4: J0696 04/16/2019 THER/PROPH/DIAG INJ SC/IM CPT-4: 33611 04/16/2019 DRAIN/INJECT JOINT/BURSA CPT-4: 33644 01/22/2019 TRIAMCINOLONE ACET INJ NOS CPT-4: J3301 01/22/2019 DEXAMETHASONE SODIUM PHOS CPT-4: J1100 01/22/2019 URINE CULTURE/ COLONY COUNT CPT-4: 30850 01/07/2019 URINALYSIS NONAUTO W/O SCOPE CPT-4: 14072 01/07/2019 CEFTRIAXONE SODIUM INJECTION CPT-4: J0696 01/07/2019 THER/PROPH/DIAG INJ SC/IM CPT-4: 39522 01/07/2019 FLU VACC PRSV FREE INC ANTIG 65 AND OLDER CPT-4: 18599 12/24/2018 FLU VACC PRSV FREE INC ANTIG 65 AND OLDER CPT-4: 68008 12/24/2018 ADMIN INFLUENZA VIRUS VAC CPT-4: G0008 12/24/2018 THER/PROPH/DIAG INJ SC/IM CPT-4: 06471 11/04/2018 KETOROLAC TROMETHAMINE INJ CPT-4: J1885 11/04/2018 PROMETHAZINE HCL INJECTION CPT-4: J2550 11/04/2018 PPPS, subseq visit CPT-4: G0439 09/18/2018 THER/PROPH/DIAG INJ SC/IM CPT-4: 74766 04/01/2018 KETOROLAC TROMETHAMINE INJ CPT-4: J1885 04/01/2018 PROMETHAZINE HCL INJECTION CPT-4: J2550 04/01/2018 URINE CULTURE/ COLONY COUNT CPT-4: 39046 03/17/2018 URINALYSIS NONAUTO W/O SCOPE CPT-4: 79234 03/17/2018 FLU VACC PRSV FREE INC ANTIG 65 AND OLDER CPT-4: 66666 12/17/2017 PNEUMOCOCCAL VACC 23 RANDALL IM CPT-4: 00903 12/17/2017 ADMIN INFLUENZA VIRUS VAC CPT-4: G0008 12/17/2017 ADMIN PNEUMOCOCCAL VACCINE CPT-4: G0009 12/17/2017 PPPS, subseq visit CPT-4: G0439 09/17/2017 THER/PROPH/DIAG INJ SC/IM CPT-4: 57042 08/26/2017 KETOROLAC TROMETHAMINE INJ CPT-4: J1885 08/26/2017 PROMETHAZINE HCL INJECTION CPT-4: J2550 08/26/2017 URINALYSIS NONAUTO W/O SCOPE CPT-4: 25900 07/19/2017 URINE CULTURE/ COLONY COUNT CPT-4: 33801 07/19/2017 CEFTRIAXONE SODIUM INJECTION CPT-4: J0696 07/19/2017 THER/PROPH/DIAG INJ SC/IM CPT-4: 32266 07/19/2017 THER/PROPH/DIAG INJ SC/IM CPT-4: 84807 07/19/2017 TRIAMCINOLONE ACET INJ NOS CPT-4: J3301 07/19/2017 PRESCRIP TRANSMIT VIA ERX SY CPT-4: G8553 05/07/2017 PRESCRIP TRANSMIT VIA ERX SY CPT-4: G8553 02/22/2017 PRESCRIP TRANSMIT VIA ERX SY CPT-4: G8553 01/23/2017 FLU VACC PRSV FREE INC ANTIG 65 AND OLDER CPT-4: 10549 12/20/2016 PNEUMOCOCCAL VACC 13 RANDALL IM CPT-4: 82690 12/20/2016 ADMIN INFLUENZA VIRUS VAC CPT-4: G0008 12/20/2016 ADMIN PNEUMOCOCCAL VACCINE CPT-4: G0009 12/20/2016 URINALYSIS NONAUTO W/O SCOPE CPT-4: 78656 10/08/2016 URINE CULTURE/ COLONY COUNT CPT-4: 09998 10/08/2016 PRESCRIP TRANSMIT VIA ERX SY CPT-4: G8553 10/08/2016 PRESCRIP TRANSMIT VIA ERX SY CPT-4: G8553 09/19/2016 PRESCRIP TRANSMIT VIA ERX SY CPT-4: G8553 08/20/2016 PRESCRIP TRANSMIT VIA ERX SY CPT-4: G8553 02/29/2016 KETOROLAC TROMETHAMINE INJ CPT-4: J1885 02/02/2016 THER/PROPH/DIAG INJ SC/IM CPT-4: 51361 02/02/2016 PROMETHAZINE HCL INJECTION CPT-4: J2550 02/02/2016 PRESCRIP TRANSMIT VIA ERX SY CPT-4: G8553 02/02/2016 FLU VACC PRSV FREE INC ANTIG 65 AND OLDER CPT-4: 01802 01/05/2016 PPPS, subseq visit CPT-4: G0439 01/05/2016 ADMIN INFLUENZA VIRUS VAC CPT-4: G0008 01/05/2016 URINE CULTURE/ COLONY COUNT CPT-4: 59228 12/05/2015 URINALYSIS NONAUTO W/O SCOPE CPT-4: 44250 12/05/2015 PRESCRIP TRANSMIT VIA ERX SY CPT-4: G8553 12/05/2015 PRESCRIP TRANSMIT VIA ERX SY CPT-4: G8553 10/26/2015 URINALYSIS NONAUTO W/O SCOPE CPT-4: 77499 10/05/2015 URINE CULTURE/ COLONY COUNT CPT-4: 19615 10/05/2015 PRESCRIP TRANSMIT VIA ERX SY CPT-4: G8553 10/05/2015 SERVICE REQUIRED FOR PMD CPT-4: G0372 09/15/2015 PRESCRIP TRANSMIT VIA ERX SY CPT-4: G8553 09/15/2015 SPECIAL REPORTS OR FORMS CPT-4: 28470 08/25/2015 PRESCRIP TRANSMIT VIA ERX SY CPT-4: G8553 07/05/2015 URINALYSIS NONAUTO W/O SCOPE CPT-4: 30140 03/30/2015 ASSAY, GLUCOSE, BLOOD QUANT CPT-4: 52531 03/30/2015 URINE CULTURE/ COLONY COUNT CPT-4: 35779 03/30/2015 PRESCRIP TRANSMIT VIA ERX SY CPT-4: G8553 03/30/2015 PRESCRIP TRANSMIT VIA ERX SY CPT-4: G8553 02/03/2015 FLU VACC PRSV FREE INC ANTIG 65 AND OLDER CPT-4: 15079 12/29/2014 ADMIN INFLUENZA VIRUS VAC CPT-4: G0008 12/29/2014 PRESCRIP TRANSMIT VIA ERX SY CPT-4: G8553 12/29/2014 PRESCRIP TRANSMIT VIA ERX SY CPT-4: G8553 09/02/2014 PROTEIN/CREAT URINE WITH RATIO CPT-4: 88072|61985 5 MICROALBUMIN QUANTITATIVE CPT-4: 76940 04/01/2014 PRESCRIP TRANSMIT VIA ERX SY CPT-4: G8553 03/16/2014 PRESCRIP TRANSMIT VIA ERX SY CPT-4: G8553 03/09/2014 THER/PROPH/DIAG INJ SC/IM CPT-4: 31380 03/01/2014 TRIAMCINOLONE ACET INJ NOS CPT-4: J3301 03/01/2014 PRESCRIP TRANSMIT VIA ERX SY CPT-4: G8553 02/09/2014 URINE CULTURE/ COLONY COUNT CPT-4: 64426 10/30/2013 URINALYSIS NONAUTO W/O SCOPE CPT-4: 56558 10/21/2013 URINE CULTURE/ COLONY COUNT CPT-4: 08625 10/21/2013 DESTRUCT PREMALG LESION (Cryos[employer]gery) CPT-4: 00110 PRESCRIP TRANSMIT VIA ERX SY CPT-4: G8553 10/05/2013 URINALYSIS NONAUTO W/O SCOPE CPT-4: 57754 08/04/2013 URINE CULTURE/ COLONY COUNT CPT-4: 92517 08/04/2013 PRESCRIP TRANSMIT VIA ERX SY CPT-4: G8553 08/04/2013 THER/PROPH/DIAG INJ SC/IM CPT-4: 24750 07/13/2013 TRIAMCINOLONE ACET INJ NOS CPT-4: J3301 07/13/2013 PRESCRIP TRANSMIT VIA ERX SY CPT-4: G8553 05/27/2013 URINALYSIS NONAUTO W/O SCOPE CPT-4: 17315 05/25/2013 URINE CULTURE/ COLONY COUNT CPT-4: 19909 05/25/2013 THER/PROPH/DIAG INJ SC/IM CPT-4: 39622 05/04/2013 VITAMIN B12 INJECTION CPT-4: J3420 05/04/2013 THER/PROPH/DIAG INJ SC/IM CPT-4: 96457 04/17/2013 VITAMIN B12 INJECTION CPT-4: J3420 04/17/2013 THER/PROPH/DIAG INJ SC/IM CPT-4: 19829 04/17/2013 METHYLPREDNISOLONE 40 MG INJ CPT-4: J1030 04/17/2013 TRIAMCINOLONE ACET INJ NOS CPT-4: J3301 04/17/2013 URINALYSIS NONAUTO W/O SCOPE CPT-4: 31338 04/06/2013 URINE CULTURE/ COLONY COUNT CPT-4: 33371 04/06/2013 PRESCRIP TRANSMIT VIA ERX SY CPT-4: G8553 04/06/2013 KETOROLAC TROMETHAMINE INJ CPT-4: J1885 06/25/2012 PROMETHAZINE HCL INJECTION CPT-4: J2550 06/25/2012 THER/PROPH/DIAG INJ SC/IM CPT-4: 25424 06/25/2012 THER/PROPH/DIAG INJ SC/IM CPT-4: 82970 06/24/2012 METHYLPREDNISOLONE 40 MG INJ CPT-4: J1030 06/24/2012 TRIAMCINOLONE ACET INJ NOS CPT-4: J3301 06/24/2012 URINE CULTURE/ COLONY COUNT CPT-4: 15838 06/24/2012 THER/PROPH/DIAG INJ SC/IM CPT-4: 49937 05/20/2012 KETOROLAC TROMETHAMINE INJ CPT-4: J1885 05/20/2012 THER/PROPH/DIAG INJ SC/IM CPT-4: 04484 05/20/2012 PROMETHAZINE HCL INJECTION CPT-4: J2550 05/20/2012 DRAIN/INJECT JOINT/BURSA CPT-4: 81532 02/13/2012 METHYLPREDNISOLONE 40 MG INJ CPT-4: J1030 02/13/2012 TRIAMCINOLONE ACET INJ NOS CPT-4: J3301 02/13/2012 THER/PROPH/DIAG INJ SC/IM CPT-4: 74786 11/14/2011 METHYLPREDNISOLONE 40 MG INJ CPT-4: J1030 11/14/2011 TRIAMCINOLONE ACET INJ NOS CPT-4: J3301 11/14/2011 THER/PROPH/DIAG INJ SC/IM CPT-4: 22853 09/12/2011 KETOROLAC TROMETHAMINE INJ CPT-4: J1885 09/12/2011 THER/PROPH/DIAG INJ SC/IM CPT-4: 51768 08/09/2011 METHYLPREDNISOLONE 40 MG INJ CPT-4: J1030 08/09/2011 TRIAMCINOLONE ACET INJ NOS CPT-4: J3301 08/09/2011 URINE CULTURE/ COLONY COUNT CPT-4: 15590 07/03/2011 URINE CULTURE/ COLONY COUNT CPT-4: 37269 06/04/2011 THER/PROPH/DIAG INJ SC/IM CPT-4: 15464 05/03/2011 METHYLPREDNISOLONE 40 MG INJ CPT-4: J1030 05/03/2011 TRIAMCINOLONE ACET INJ NOS CPT-4: J3301 05/03/2011 URINALYSIS NONAUTO W/O SCOPE CPT-4: 44427 01/24/2011 URINE CULTURE/ COLONY COUNT CPT-4: 72182 01/24/2011 FLUZONE, 5ML (Medicare) CPT-4: Q2038 01/02/2011 ADMIN INFLUENZA VIRUS VAC CPT-4: G0008 01/02/2011 ASSAY, GLUCOSE, BLOOD QUANT CPT-4: 00807 12/07/2010 URINE CULTURE/ COLONY COUNT CPT-4: 08116 11/02/2010 THER/PROPH/DIAG INJ SC/IM CPT-4: 04003 10/18/2010 METHYLPREDNISOLONE 40 MG INJ CPT-4: J1030 10/18/2010 TRIAMCINOLONE ACET INJ NOS CPT-4: J3301 10/18/2010 TRIAMCINOLONE ACET INJ NOS CPT-4: J3301 05/11/2010 METHYLPREDNISOLONE 40 MG INJ CPT-4: J1030 05/11/2010 THER/PROPH/DIAG INJ SC/IM CPT-4: 52900 05/11/2010 TRIAMCINOLONE ACET INJ NOS CPT-4: J3301 02/09/2010 METHYLPREDNISOLONE 40 MG INJ CPT-4: J1030 02/09/2010 THER/PROPH/DIAG INJ SC/IM CPT-4: 71122 02/09/2010 SERVICE REQUIRED FOR PMD CPT-4: G0372 02/09/2010 FLU VACCINE 3 YRS & > IM UP 64 CPT-4: 28679 0 PNEUMOCOCCAL VACC 23 RANDALL IM CPT-4: 54771 12/07/2009 ADMIN INFLUENZA VIRUS VAC CPT-4: G0008 12/07/2009 ADMIN PNEUMOCOCCAL VACCINE CPT-4: G0009 12/07/2009 TRIAMCINOLONE ACET INJ NOS CPT-4: J3301 05/26/2009 THER/PROPH/DIAG INJ SC/IM CPT-4: 91493 05/26/2009 METHYLPREDNISOLONE 80 MG INJ CPT-4: J1040 [...] 1: 114/72 Code: 8480-6 BMI: 37.8 Code: 53250-8 Heart Rate 1: 72 bpm Height: 5'3" [...] 1: 106/68 Code: 8480-6 BMI: 35.7 Code: 21384-2 Heart Rate 1: 72 bpm Height: 5'4" Respiratory Rate: 20 bpm SpO2: 98% Tempera ture: 36.7 (C) / 98.0 (F) Weight: 208 lbs 04/16/2018 Blood Pressure 1: 132/82 Code: 8480-6 BMI: 37.9 Code: 09741-4 Heart Rate 1: 72 bpm Height: 5'4" Respiratory Rate: 20 bpm SpO2: 96% Tempera ture: 37.1 (C) / 98.8 (F) Weight: 221 lbs 04/01/2018 Blood Pressure 1: 150/90 Code: 8480-6 Heart Rate 1: 72 bpm Respiratory Rate: 22 bpm SpO2: 95% Temperature: 36.4 (C) / 97.6 (F) We ight: 216 lbs 03/06/2018 Blood Pressure 1: 126/78 Code: 8480-6 BMI: 37.4 Code: 53274-9 Heart Rate 1: 68 bpm Height: 5'4" [...] ight: 222 lbs 12/25/2017 BMI: 37.8 Code: 18894-7 Heart Rate 1: 76 bpm Height: 5 '4" Respiratory Rate: 20 bpm SpO2: 96% Temperature: 37.3 (C) / 99.2 (F) Weight: 220 lbs 12/17/2017 Blood Pressure 1: 132/78 Code: 8480-6 BMI: 37.2 Code: 44018-7 Heart Rate 1: 88 bpm Height: 5'4" Respiratory Rate: 20 bpm SpO2: 96% Tempera ture: 37.3 (C) / 99.2 (F) Weight: 217 lbs 10/30/2017 Blood Pressure 1: 114/68 Code: 8480-6 BMI: 36.4 Code: 87598-1 Heart Rate 1: 72 bpm Height: 5'4" Respiratory Rate: 22 bpm SpO2: 96% Tempera ture: 36.8 (C) / 98.2 (F) Weight: 212 lbs 10/23/2017 Blood Pressure 1: 124/78 Code: 8480-6 Heart Rate 1: 72 bpm Respiratory Rate: 24 bpm SpO2: 94% Temperature: 36.6 (C) / 97.9 (F) We ight: 212 lbs 09/17/2017 Blood Pressure 1: 128/82 Code: 8480-6 BMI: 37.4 Code: 83152-9 Heart Rate 1: 72 bpm Height: 5'4" Respiratory Rate: 20 bpm SpO2: 96% Tempera ture: 37.0 (C) / 98.6 (F) Weight: 218 lbs 07/19/2017 Blood Pressure 1: 136/84 Code: 8480-6 BMI: 36.6 Code: 06956-5 Heart Rate 1: 88 bpm Height: 5'4" Respiratory Rate: 20 bpm SpO2: 97% Tempera ture: 36.7 (C) / 98.0 (F) Weight: 213 lbs 05/29/2017 Blood Pressure 1: 136/82 Code: 8480-6 BMI: 36.7 Code: 57766-4 Heart Rate 1: 72 bpm Height: 5'4" Respiratory Rate: 20 bpm SpO2: 97% Tempera ture: 36.9 (C) / 98.4 (F) Weight: 214 lbs 05/07/2017 Blood Pressure 1: 122/80 Code: 8480-6 BMI: 37.1 Code: 30069-9 Heart Rate 1: 80 bpm Height: 5'4" Respiratory Rate: 24 bpm SpO2: 96% Tempera ture: 36.1 (C) / 97.0 (F) Weight: 216 lbs 03/18/2017 BMI: 36.7 Code: 75169-1 Heart Rate 1: 80 bpm Height: 5 '4" Respiratory Rate: 22 bpm SpO2: 95% Temperature: 36.9 (C) / 98.4 (F) Weight: 214 lbs 02/27/2017 Blood Pressure 1: 146/94 Code: 8480-6 BMI: 36.6 Code: 81280-0 Heart Rate 1: 76 bpm Height: 5'4" Respiratory Rate: 22 bpm SpO2: 97% Tempera ture: 36.6 (C) / 97.9 (F) Weight: 213 lbs 02/22/2017 Blood Pressure 1: 126/90 Code: 8480-6 BMI: 36.4 Code: 37286-2 Heart Rate 1: 84 bpm Height: 5'4" Respiratory Rate: 22 bpm SpO2: 95% Tempera ture: 36.9 (C) / 98.4 (F) Weight: 212 lbs 01/23/2017 Blood Pressure 1: 146/82 Code: 8480-6 BMI: 37.6 Code: 12018-5 Heart Rate 1: 96 bpm Height: 5'4" Respiratory Rate: 20 bpm SpO2: 96% Tempera ture: 36.9 (C) / 98.4 (F) Weight: 219 lbs 12/20/2016 Blood Pressure 1: 126/70 Code: 8480-6 BMI: 37.2 Code: 59481-0 Heart Rate 1: 76 bpm Height: 5'4" Respiratory Rate: 22 bpm SpO2: 95% Tempera ture: 36.6 (C) / 97.8 (F) Weight: 217 lbs 10/08/2016 Blood Pressure 1: 128/82 Code: 8480-6 BMI: 36.9 Code: 92289-0 Heart Rate 1: 76 bpm Height: 5'4" Respiratory Rate: 20 bpm SpO2: 95% Tempera ture: 37.0 (C) / 98.6 (F) Weight: 215 lbs 09/19/2016 Blood Pressure 1: 144/78 Code: 8480-6 BMI: 37.8 Code: 15691-9 Heart Rate 1: 76 bpm Height: 5'4" Respiratory Rate: 22 bpm SpO2: 95% Tempera ture: 37.0 (C) / 98.6 (F) Weight: 220 lbs 08/20/2016 Blood Pressure 1: 140/86 Code: 8480-6 BMI: 37.4 Code: 43773-4 Heart Rate 1: 80 bpm Height: 5'4" Respiratory Rate: 20 bpm SpO2: 95% Tempera ture: 36.9 (C) / 98.4 (F) Weight: 218 lbs 06/19/2016 Blood Pressure 1: 124 Code: 8480-6 BMI: 37.8 Code: 21528-4 Heart Rate 1: 74 bpm Height: 5'4" Respiratory Rate: 24 bpm SpO2: 96% Tempera ture: 36.9 (C) / 98.4 (F) Weight: 220 lbs 06/04/2016 Blood Pressure 1: 12478 Code: 8480-6 BMI: 38.8 Code: 58377-9 Heart Rate 1: 72 bpm Height: 5'4" Respiratory Rate: 24 bpm SpO2: 95% Tempera ture: 36.8 (C) / 98.2 (F) Weight: 226 lbs 05/02/2016 Blood Pressure 1: 136/90 Code: 8480-6 BMI: 37.6 Code: 70311-0 Heart Rate 1: 72 bpm Height: 5'4" Respiratory Rate: 24 bpm SpO2: 96% Tempera ture: 36.9 (C) / 98.4 (F) Weight: 219 lbs 04/03/2016 Blood Pressure 1: 126/78 Code: 8480-6 BMI: 38.1 Code: 28801-7 Heart Rate 1: 72 bpm Height: 5'4" Respiratory Rate: 22 bpm SpO2: 94% Tempera ture: 36.9 (C) / 98.4 (F) Weight: 222 lbs 02/29/2016 Blood Pressure 1: 132/78 Code: 8480-6 Heart Rate 1: 78 bpm Height: Respiratory Rate: 24 bpm SpO2: 95% Temperature: 36.4 (C) / 97.6 (F) We ight: 02/02/2016 Blood Pressure 1: 124/78 Code: 8480-6 BMI: 37.6 Code: 10308-0 Heart Rate 1: 76 bpm Height: 5'4" Respiratory Rate: 20 bpm SpO2: 95% Tempera ture: 36.8 (C) / 98.2 (F) Weight: 219 lbs 01/05/2016 Blood Pressure 1: 126/70 Code: 8480-6 BMI: 37.1 Code: 74139-2 Heart Rate 1: 76 bpm Height: 5'4" Respiratory Rate: 20 bpm Temperature: 36 .6 (C) / 97.8 (F) Weight: 216 lbs 12/05/2015 Blood Pressure 1: 126/72 Code: 8480-6 BMI: 36.9 Code: 52924-9 Heart Rate 1: 92 bpm Height: 5'4" Respiratory Rate: 20 bpm Temperature: 36 .7 (C) / 98.1 (F) Weight: 215 lbs 10/26/2015 Blood Pressure 1: 142/80 Code: 8480-6 BMI: 36.4 Code: 82299-7 Heart Rate 1: 82 bpm Height: 5'4" Respiratory Rate: 24 bpm SpO2: 92% Tempera ture: 35.9 (C) / 96.7 (F) Weight: 212 lbs 10/05/2015 Blood Pressure 1: 136/82 Code: 8480-6 Heart Rate 1: 80 bpm Respiratory Rate: 18 bpm SpO2: 98% Temperature: 35.7 (C) / 96.3 (F) We ight: 214 lbs 09/15/2015 Blood Pressure 1: 116/80 Code: 8480-6 BMI: 34.6 Code: 73133-3 Heart Rate 1: 76 bpm Height: 5'6" Respiratory Rate: 20 bpm Temperature: 36 .6 (C) / 97.9 (F) Weight: 211 lbs 08/24/2015 Blood Pressure 1: 124/80 Code: 8480-6 BMI: 34.1 Code: 93195-5 Heart Rate 1: 68 bpm Height: 5'6" Respiratory Rate: 20 bpm Temperature: 36 .8 (C) / 98.3 (F) Weight: 208 lbs 07/05/2015 Blood Pressure 1: 114/78 Code: 8480-6 BMI: 33.9 Code: 68462-1 Heart Rate 1: 80 bpm Height: 5'6" Respiratory Rate: 20 bpm Temperature: 36 .6 (C) / 97.9 (F) Weight: 207 lbs 06/06/2015 Blood Pressure 1: 122/78 Code: 8480-6 BMI: 34.1 Code: 83552-1 Heart Rate 1: 76 bpm Height: 5'6" Respiratory Rate: 24 bpm SpO2: 96% Tempera ture: 36.4 (C) / 97.6 (F) Weight: 208 lbs 05/23/2015 Blood Pressure 1: 124/78 Code: 8480-6 Heart Rate 1: 76 bpm Respiratory Rate: 24 bpm SpO2: 93% Temperature: 36.8 (C) / 98.2 (F) We ight: 212 lbs 05/05/2015 Blood Pressure 1: 136/80 Code: 8480-6 BMI: 35.4 Code: 72426-8 Heart Rate 1: 76 bpm Height: 5'6" Respiratory Rate: 28 bpm Temperature: 37 .0 (C) / 98.6 (F) Weight: 216 lbs 03/30/2015 Blood Pressure 1: 132/86 Code: 8480-6 BMI: 35.2 Code: 84752-0 Heart Rate 1: 84 bpm Height: 5'6" Respiratory Rate: 24 bpm Temperature: 36 .7 (C) / 98.0 (F) Weight: 215 lbs 02/03/2015 Blood Pressure 1: 122/74 Code: 8480-6 BMI: 35.7 Code: 40041-6 Heart Rate 1: 84 bpm Height: 5'6" Respiratory Rate: 20 bpm Temperature: 36 .9 (C) / 98.5 (F) Weight: 218 lbs 12/29/2014 Blood Pressure 1: 132/80 Code: 8480-6 BMI: 35.1 Code: 61743-0 Heart Rate 1: 80 bpm Height: 5'6" Respiratory Rate: 20 bpm Temperature: 36 .6 (C) / 97.8 (F) Weight: 214 lbs 09/02/2014 Blood Pressure 1: 128/92 Code: 8480-6 BMI: 34.7 Code: 65883-5 Heart Rate 1: 84 bpm Height: 5'6" Respiratory Rate: 26 bpm Temperature: 36 .8 (C) / 98.2 (F) Weight: 212 lbs 08/25/2014 Blood Pressure 1: 124/80 Code: 8480-6 BMI: 34.7 Code: 53156-9 Heart Rate 1: 78 bpm Height: 5'6" Respiratory Rate: 22 bpm SpO2: 97% Tempera ture: 36.6 (C) / 97.8 (F) Weight: 212 lbs 04/01/2014 Blood Pressure 1: 142/84 Code: 8480-6 BMI: 34.4 Code: 59906-0 Heart Rate 1: 74 bpm Height: 5'5" Respiratory Rate: 20 bpm Temperature: 36 .4 (C) / 97.6 (F) Weight: 207 lbs 03/16/2014 Blood Pressure 1: 142/90 Code: 8480-6 BMI: 34.6 Code: 57848-8 Heart Rate 1: 76 bpm Height: 5'5" Respiratory Rate: 24 bpm Temperature: 36 .5 (C) / 97.7 (F) Weight: 208 lbs 03/09/2014 Blood Pressure 1: 116/70 Code: 8480-6 BMI: 35.3 Code: 47061-8 Heart Rate 1: 72 bpm Height: 5'5" [...] 1: 128/86 Code: 8480-6 BMI: 34.3 Code: 20308-0 Heart Rate 1: 84 bpm Height: 5'5" Respiratory Rate: 20 bpm Temperature: 36 .7 (C) / 98.0 (F) Weight: 206 lbs 12/23/2013 Blood Pressure 1: 122/70 Code: 8480-6 BMI: 34.3 Code: 14431-4 Heart Rate 1: 68 bpm Height: 5'5" Respiratory Rate: 20 bpm Temperature: 36 .8 (C) / 98.2 (F) Weight: 206 lbs 10/05/2013 Blood Pressure 1: 118/76 Code: 8480-6 BMI: 34.1 Code: 29016-7 Heart Rate 1: 68 bpm Height: 5'5" Respiratory Rate: 20 bpm SpO2: 98% Tempera ture: 36.6 (C) / 97.9 (F) Weight: 205 lbs 08/04/2013 Blood Pressure 1: 126/82 Code: 8480-6 BMI: 33.3 Code: 48388-0 Heart Rate 1: 76 bpm Height: 5'5" Respiratory Rate: 20 bpm Temperature: 36 .8 (C) / 98.2 (F) Weight: 200 lbs 07/03/2013 Blood Pressure 1: 124/82 Code: 8480-6 BMI: 33.3 Code: 23968-1 Heart Rate 1: 72 bpm Height: 5'5" Respiratory Rate: 22 bpm Temperature: 36 .1 (C) / 97.0 (F) Weight: 200 lbs 05/27/2013 Blood Pressure 1: 126/82 Code: 8480-6 Heart Rate 1: 74 bpm Respiratory Rate: 20 bpm Temperature: 36.0 (C) / 96.8 (F) Weight: 199 lbs 04/06/2013 Blood Pressure 1: 118/80 Code: 8480-6 BMI: 35.2 Code: 28648-1 Heart Rate 1: 80 bpm Height: 5'4" Respiratory Rate: 20 bpm Temperature: 37 .4 (C) / 99.3 (F) Weight: 205 lbs 11/10/2012 Blood Pressure 1: 128/82 Code: 8480-6 Heart Rate 1: 84 bpm Respiratory Rate: 20 bpm Temperature: 36.7 (C) / 98.0 (F) Weight: 199 lbs 09/02/2012 Blood Pressure 1: 116/82 Code: 8480-6 BMI: 34.2 Code: 66344-7 Heart Rate 1: 88 bpm Height: 5'4" Respiratory Rate: 22 bpm Temperature: 36 .6 (C) / 97.8 (F) Weight: 199 lbs 08/04/2012 Blood Pressure 1: 128/74 Code: 8480-6 BMI: 34.0 Code: 16309-7 Heart Rate 1: 92 bpm Height: 5'4" Respiratory Rate: 20 bpm Temperature: 36 .4 (C) / 97.5 (F) Weight: 198 lbs 07/21/2012 Blood Pressure 1: 124/86 Code: 8480-6 Heart Rate 1: 116 bpm Respiratory Rate: 24 bpm Temperature: 36.8 (C) / 98.2 (F) 07/02/2012 Blood Pressure 1: 116/88 Code: 8480-6 BMI: 33.6 Code: 70486-8 Heart Rate 1: 76 bpm Height: 5'4" Respiratory Rate: 20 bpm Temperature: 36 .8 (C) / 98.3 (F) Weight: 196 lbs 06/24/2012 Blood Pressure 1: 124/80 Code: 8480-6 BMI: 34.3 Code: 79273-6 Heart Rate 1: 72 bpm Height: 5'4" SpO2: 96% Temperature: 36.3 (C) / 97.3 (F) Weight: 200 lbs 05/20/2012 Blood Pressure 1: 116/88 Code: 8480-6 BMI: 33.8 Code: 29616-2 Heart Rate 1: 80 bpm Height: 5'4" Respiratory Rate: 22 bpm Temperature: 36 .9 (C) / 98.4 (F) Weight: 197 lbs 05/08/2012 Blood Pressure 1: 128/86 Code: 8480-6 BMI: 33.8 Code: 80080-1 Heart Rate 1: 76 bpm Height: 5'4" Respiratory Rate: 26 bpm SpO2: 95% Tempera ture: 36.1 (C) / 97.0 (F) Weight: 197 lbs 04/22/2012 Blood Pressure 1: 106/64 Code: 8480-6 BMI: 33.8 Code: 59781-2 Heart Rate 1: 70 bpm Height: 5'4" Temperature: 36.1 (C) / 97.0 (F) Weight: 197 lbs 02/13/2012 Blood Pressure 1: 126/82 Code: 8480-6 BMI: 34.7 Code: 69241-0 Heart Rate 1: 64 bpm Height: 5'4" Respiratory Rate: 20 bpm Temperature: 36 .6 (C) / 97.8 (F) Weight: 202 lbs 01/28/2012 Blood Pressure 1: 116/80 Code: 8480-6 BMI: 34.7 Code: 00782-9 Heart Rate 1: 76 bpm Height: 5'4" Respiratory Rate: 20 bpm Temperature: 36 .8 (C) / 98.3 (F) Weight: 202 lbs 12/26/2011 Blood Pressure 1: 132/82 Code: 8480-6 BMI: 36.0 Code: 23248-4 Heart Rate 1: 68 bpm Height: 5'4" Respiratory Rate: 22 bpm Temperature: 36 .7 (C) / 98.0 (F) Weight: 210 lbs 11/14/2011 Blood Pressure 1: 124/80 Code: 8480-6 BMI: 36.4 Code: 52819-4 Heart Rate 1: 76 bpm Height: 5'4" Respiratory Rate: 20 bpm Temperature: 36 .8 (C) / 98.2 (F) Weight: 212 lbs 09/12/2011 Blood Pressure 1: 108/74 Code: 8480-6 BMI: 37.1 Code: 25942-9 Heart Rate 1: 72 bpm Height: 5'4" Respiratory Rate: 20 bpm Temperature: 37 .0 (C) / 98.6 (F) Weight: 216 lbs 08/15/2011 Blood Pressure 1: 122/80 Code: 8480-6 BMI: 36.9 Code: 36800-6 Heart Rate 1: 76 bpm Height: 5'4" Respiratory Rate: 20 bpm Temperature: 36 .2 (C) / 97.1 (F) Weight: 215 lbs 08/09/2011 Blood Pressure 1: 112/78 Code: 8480-6 BMI: 36.9 Code: 48007-5 Heart Rate 1: 68 bpm Height: 5'4" Respiratory Rate: 20 bpm Temperature: 36 .7 (C) / 98.0 (F) Weight: 215 lbs 07/03/2011 Blood Pressure 1: 140/94 Code: 8480-6 BMI: 36.2 Code: 66792-4 Heart Rate 1: 68 bpm Height: 5'4" Temperature: 36.0 (C) / 96.8 (F) Weight: 211 lbs 06/04/2011 Blood Pressure 1: 124/70 Code: 8480-6 BMI: 36.7 Code: 54220-0 Heart Rate 1: 68 bpm Height: 5'4" Respiratory Rate: 20 bpm Temperature: 36 .6 (C) / 97.9 (F) Weight: 214 lbs 05/03/2011 Blood Pressure 1: 130/76 Code: 8480-6 BMI: 36.4 Code: 54278-7 Heart Rate 1: 74 bpm Height: 5'5" Temperature: 36.2 (C) / 97.2 (F) Weight: 219 lbs 04/05/2011 Blood Pressure 1: 124/86 Code: 8480-6 BMI: 35.9 Code: 07834-6 Heart Rate 1: 76 bpm Height: 5'6" Respiratory Rate: 22 bpm Temperature: 36 .3 (C) / 97.3 (F) Weight: 219 lbs 03/08/2011 Blood Pressure 1: 112/78 Code: 8480-6 BMI: 35.1 Code: 41986-7 Heart Rate 1: 80 bpm Height: 5'6" Respiratory Rate: 26 bpm Temperature: 36 .9 (C) / 98.4 (F) Weight: 214 lbs 01/24/2011 Blood Pressure 1: 110/82 Code: 8480-6 BMI: 35.6 Code: 29003-9 Heart Rate 1: 80 bpm Height: 5'6" Temperature: 36.1 (C) / 97.0 (F) Weight: 217 lbs 01/02/2011 Blood Pressure 1: 106/72 Code: 8480-6 BMI: 35.6 Code: 02907-8 Heart Rate 1: 76 bpm Height: 5'6" [...] 1: 120/74 Code: 8480-6 BMI: 35.9 Code: 70234-2 Heart Rate 1: 72 bpm Height: 5'5" Temperature: 36.3 (C) / 97.4 (F) Weight: 216 lbs 09/19/2010 Blood Pressure 1: 124/80 Code: 8480-6 BMI: 35.4 Code: 92527-6 Heart Rate 1: 76 bpm Height: 5'5" [...] 1: 122/78 Code: 8480-6 BMI: 37.4 Code: 39394-2 Heart Rate 1: 84 bpm Height: 5'5" [...] 07/24/16 follow up 06/19/2016 [facility] week [facility] follow up 06/04/2016 1mo fwup follow up 05/02/2016 Hospital fwup follow up 04/03/2016 dyspnea 02/29/2016 low grade 99s follow up 02/02/2016 ER fwup diabetes mellitus 01/05/2016 painful urination 12/05/2015 follow up 10/26/2015 ER visit from at [facility] for COPD Exacerbation follow up [...] follow up 03/01/2014 ER follow up 02/09/2014 [facility] gastroesophageal reflux 12/23/2013 painful urination 10/30/2013 [...] 06/24/2012 1mo fwup follow up 05/20/2012 2wk [facility] dyskinesia or tremor 05/08/2012 follow up 04/22/2012 [...] 04/05/2011 1mo fwup follow up 03/08/2011 2wk [facility] fw dizziness 01/24/2011 frequent falling follow up 01/02/2011 decreased enalapril and propranolol rash 12/07/2010 under breasts/abdome n fold follow up 11/16/2010 1mo fwup follow up 11/02/2010 ER fwup follow up 10/18/[address] Medrano last w [place], having increased allergy symptoms. Would like steroid [...] f/u follow up 12/07/2009 from [facility], done with PT--finished about 2wks ago [...] LION (obstructive sleep apnea)[ICD10: G47.33] Pattie Shi [facility] CPT-4: 13834 08/10/2019 ([id number]) OFFICE/OUTPATIENT VISIT EST Diagnosis: Pelvic pain in female[ICD10: R10.2] Diagnosis: Left leg swelling[ICD10: M79.89] Diagnosis: Dyspnea[ICD10: R06.00] Diagnosis: Constipation[ICD10: K59.00] Pattie BRUNSON S. O RENDER DO [facility] CPT-4: 37041 08/04/2019 ([id number]) OFFICE/OUTPATIENT VISIT EST Diagnosis: Inspiratory stridor[ICD10: R06.1] Diagnosis: Diarrhea[ICD10: R19.7] Belia Reid [facility] CPT-4: 9921 3 07/06/2019 ([id number]) OFFICE/OUTPATIENT VISIT EST Diagnosis: Left leg swelling[ICD10: M79.89] Diagnosis: Dyspnea[ICD10: R06.00] Belia Reid [facility] CPT-4: 9921 3 06/24/2019 ([id number]) OFFICE/OUTPATIENT VISIT EST Diagnosis: Acute bronchitis[ICD10: J20.9] Diagnosis: Colitis[ICD10: K52.9] Belia REID [facility] CPT-4: 21125 06/16/2019 ([id number]) OFFICE/OUTPATIENT VISIT EST Diagnosis: Diarrhea[ICD10: R19.7] Diagnosis: Abdominal bloating[ICD10: R14.0] Belia Reid [facility] CPT- 4: 29474 06/08/2019 ([id number]) OFFICE/OUTPATIENT VISIT EST Diagnosis: Acute febrile illness[ICD10: R50.9] Diagnosis: Colitis[ICD10: K52.9] Belia Reid [facility] CPT-4: 47382 05/26/2019 ([id number]) OFFICE/OUTPATIENT VISIT EST Diagnosis: Chronic obstructive pulmonary disease, unspecified[ICD10: J44.9] Diagnosis: Pulmonary fibrosis[ICD10: J84.10] Diagnosis: Intermittent stridor[ICD10: R06.1] Diagnosis: Muscle weakness[ICD10: M62.81] Belia REID [facility] CPT-4: 92257 05/13/2019 ([id number]) OFFICE/OUTPATIENT VISIT EST Diagnosis: Stridor[ICD10: R06.1] Diagnosis: COUGH[ICD10: R05] Belia REID [facility] CPT-4: 75664 05/06/2019 ([id number]) OFFICE/OUTPATIENT VISIT EST Diagnosis: Stridor[ICD10: R06.1] Diagnosis: Muscle, jerky movements (uncontrolled)[ICD10: G25.5] Belia REID [facility] CPT-4: 93725 04/29/2019 ([id number]) OFFICE/OUTPATIENT VISIT EST Diagnosis: Upper respiratory infection[ICD10: J06.9] Diagnosis: Flank pain[ICD10: R10.9] Diagnosis: Weight gain[ICD10: R63.5] Pattie AMBRIZ [facility] CPT-4: 66762 04/16/2019 ([id number]) OFFICE/OUTPATIENT VISIT EST Diagnosis: Generalized pruritus[ICD10: L29.9] Belia REID [facility] CPT-4: 42673 04/08/2019 ([id number]) OFFICE/OUTPATIENT VISIT EST Diagnosis: Acute bursitis of left shoulder[ICD10: M75.52] Diagnosis: Cervicalgia[ICD10: M54.2] Diagnosis: Chest wall pain[ICD10: R07.89] Belia SMITH [facility] CPT-4: 24131 01/22/2019 ([id number]) OFFICE/OUTPATIENT VISIT EST Diagnosis: Abdominal pain[ICD10: R10.9] Diagnosis: Pyelonephritis[ICD10: N12] Pattie DOMINGUEZ [facility] CPT-4: 23159 01/07/2019 ([id number]) OFFICE/OUTPATIENT VISIT EST Diagnosis: Low back pain[ICD10: M54.5] Diagnosis: Left lumbar radiculopathy[ICD10: M54.16] Diagnosis: Left flank pain[ICD10: R10.9] Diagnosis: Left lower quadrant pain[ICD10: R10.32] Diagnosis: FLU VACCINE[ICD10: Z23] Belia FREDERICK [facility] CPT-4: 17303 12/24/2018 ([id number]) OFFICE/OUTPATIENT VISIT EST Diagnosis: Migraine, unspecified, not intractable, without status migrainosus[ICD10: G43.909] Diagnosis: Fibromyalgia[ICD10: M79.7] Belia DOMINGUEZ [facility] CPT-4: 42324 11/20/2018 ([id number]) OFFICE/OUTPATIENT VISIT EST Diagnosis: Migraine, unspecified, intractable, without status migrainosus[ICD10: G43.919] Diagnosis: Acute sinusitis, unspecified[ICD10: J01.90] Pattie REID [facility] CPT-4: 83135 11/04/2018 ([id number]) OFFICE/OUTPATIENT VISIT EST Diagnosis: Pain in left wrist[ICD10: M25.532] Diagnosis: Other dorsalgia[ICD10: M54.89] Pattie Branjuan REID [facility] CPT-4: 27087 09/08/2018 ([id number]) OFFICE/OUTPATIENT VISIT EST Diagnosis: Acute stress reaction[ICD10: F43.0] Diagnosis: Pruritus, unspecified[ICD10: L29.9] 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, 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] Belia REID DO [facility] CPT-4: 93952 08/20/2018 ([id number]) OFFICE/OUTPATIENT VISIT EST Diagnosis: Hypotension due to drugs[ICD10: I95.2] Diagnosis: Paroxysmal atrial fibrillation[ICD10: I48.0] Diagnosis: Localized edema[ICD10: R60.0] Belia REID [facility] CPT-4: 12347 06/19/2018 ([id number]) OFFICE/OUTPATIENT VISIT EST Diagnosis: Generalized hyperhidrosis[ICD10: R61] Diagnosis: Essential (primary) hypertension[ICD10: I10] Diagnosis: Supraventricular tachycardia[ICD10: I47.1] Belia REID [facility] CPT-4: 54992 06/09/2018 ([id number]) OFFICE/OUTPATIENT VISIT EST Diagnosis: Stridor[ICD10: R06.1] Diagnosis: Dependence on supplemental oxygen[ICD10: Z99.81] Diagnosis: Weakness[ICD10: R53.1] Diagnosis: Supraventricular tachycardia[ICD10: I47.1] Belia REID [facility] CPT-4: 60658 05/21/2018 ([id number]) OFFICE/OUTPATIENT VISIT EST Diagnosis: Cervical disc disorder with radiculopathy, unspecified cervical region[ICD10: M50.10] Belia REID DO [facility] CPT-4: 55013 04/16/2018 ([id number]) OFFICE/OUTPATIENT VISIT EST Diagnosis: Migraine, unspecified, intractable, without status migrainosus[ICD10: G43.919] Diagnosis: Fibromyalgia[ICD10: M79.7] Pattie DOMINGUEZ [facility] CPT-4: 16261 04/01/2018 ([id number]) NURSE/OUTPATIENT VISIT EST Diagnosis: Hematuria, unspecified[ICD10: R31.9] Diagnosis: Dysuria[ICD10: R30.0] Belia REID DO [facility] CPT-4: 27502 03/17/2018 ([id number]) OFFICE/OUTPATIENT VISIT EST Diagnosis: Erythema intertrigo[ICD10: L30.4] Diagnosis: Chronic obstructive pulmonary disease with (acute) exacerbation[ICD10: J44.1] Diagnosis: Type 2 diabetes mellitus with hyperglycemia[ICD10: E11.65] Belia REID DO [facility] CPT-4: 66736 03/06/2018 ([id number]) OFFICE/OUTPATIENT VISIT EST Diagnosis: Cervicalgia[ICD10: M54.2] Pattie AMBRIZ DO [facility] CPT-4: 17067 02/05/2018 ([id number]) OFFICE/OUTPATIENT VISIT EST Diagnosis: Candidiasis of skin and nail[ICD10: B37.2] Diagnosis: Cervicalgia[ICD10: M54.2] Pattie AMBRIZ [facility] CPT-4: 55192 01/20/2018 ([id number]) OFFICE/OUTPATIENT VISIT EST Diagnosis: Pain in thoracic spine[ICD10: M54.6] Diagnosis: Radiculopathy, thoracic region[ICD10: M54.14] Belia REID DO [facility] CPT-4: 75215 12/25/2017 ([id number]) OFFICE/OUTPATIENT VISIT EST Diagnosis: Pain in thoracic spine[ICD10: M54.6] Diagnosis: Other muscle spasm[ICD10: M62.838] Diagnosis: FLU VACCINE[ICD10: Z23] Diagnosis: PNEUMOCOCCAL VACCINE[ICD10: Z23] Belia REID DO [facility] CPT-4: 72378 12/17/2017 ([id number]) OFFICE/OUTPATIENT VISIT EST Diagnosis: Chronic obstructive pulmonary disease with (acute) exacerbation[ICD10: J44.1] Belia REID DO [facility] CPT- 4: 88139 10/30/2017 ([id number]) OFFICE/OUTPATIENT VISIT EST Diagnosis: Chronic obstructive pulmonary disease with acute lower respiratory infection[ICD10: J44.0] Diagnosis: Mild intermittent asthma with (acute) exacerbation[ICD10: J45.21] Bleia REID DO [facility] CPT-4: 86992 10/23/2017 ([id number]) NURSE/OUTPATIENT VISIT EST Diagnosis: Migraine, unspecified, not intractable, without status migrainosus[ICD10: G43.909] Belia REID DO [facility] CPT - 4: 64148 08/26/2017 ([id number]) OFFICE/OUTPATIENT VISIT EST Diagnosis: Urinary tract infection, site not specified[ICD10: N39.0] Diagnosis: Encounter for screening for osteoporosis[ICD10: Z13.820] Diagnosis: Encounter for screening mammogram for malignant neoplasm of breast[ICD10: Z12.31] Diagnosis: Acute bronchitis, unspecified[ICD10: J20.9] Pattie REID DO [facility] CPT-4: 52372 07/19/2017 ([id number]) OFFICE/OUTPATIENT VISIT EST Diagnosis: Rash and other nonspecific skin eruption[ICD10: R21] Pattie REID DO [facility] CPT-4: 03784 05/29/2017 ([id number]) OFFICE/OUTPATIENT VISIT EST Diagnosis: Diarrhea, unspecified[ICD10: R19.7] Diagnosis: Tinea corporis[ICD10: B35.4] Diagnosis: Tinea cruris[ICD10: B35.6] Diagnosis: Migraine, unspecified, not intractable, without status migrainosus[ICD10: G43.909] Belia REID DO [facility] CPT - 4: 59311 05/07/2017 ([id number]) OFFICE/OUTPATIENT VISIT EST Diagnosis: Stridor[ICD10: R06.1] Diagnosis: Chronic obstructive pulmonary disease with (acute) exacerbation[ICD10: J44.1] Belia REID DO [facility] CPT- 4: 35693 03/18/2017 ([id number]) OFFICE/OUTPATIENT VISIT EST Diagnosis: Type 2 diabetes mellitus with hyperglycemia[ICD10: E11.65] Belia REID DO [facility] CPT-4: 39602 02/27/2017 OFFICE/OUTPATIENT VISIT EST Diagnosis: Type 2 diabetes mellitus with hyperglycemia[ICD10: E11.65] Pattie REID DO [facility] CPT-4: 02140 02/22/2017 ([id number]) OFFICE/OUTPATIENT VISIT EST Diagnosis: Urinary tract infection, site not specified[ICD10: N39.0] Diagnosis: Pneumonia, unspecified organism[ICD10: J18.9] Diagnosis: Type 2 diabetes mellitus with hyperglycemia[ICD10: E11.65] Belia REID [facility] CPT-4: 76056 01/23/2017 ([id number]) OFFICE/OUTPATIENT VISIT EST Diagnosis: Type 2 diabetes mellitus with hyperglycemia[ICD10: E11.65] Diagnosis: Localized edema[ICD10: R60.0] Diagnosis: PNEUMOCOCCAL VACCINE[ICD10: Z23] Diagnosis: FLU VACCINE[ICD10: Z23] Belia FREDERICK [facility] CPT-4: 04905 12/20/2016 OFFICE/OUTPATIENT VISIT EST Diagnosis: Pain in thoracic spine[ICD10: M54.6] Diagnosis: Low back pain[ICD10: M54.5] Diagnosis: Cervicalgia[ICD10: M54.2] Diagnosis: Cough[ICD10: R05] Celeste Ferreira BELIA REID [facility] CPT-4: 05223 10/08/2016 ([id number]) OFFICE/OUTPATIENT VISIT EST Diagnosis: Primary insomnia[ICD10: F51.01] Diagnosis: Migraine, unspecified, not intractable, without status migrainosus[ICD10: G43.909] Diagnosis: Type 2 diabetes mellitus with hyperglycemia[ICD10: E11.65] Belia REID [facility] CPT-4: 90813 09/19/2016 ([id number]) OFFICE/OUTPATIENT VISIT EST Diagnosis: Migraine, unspecified, not intractable, without status migrainosus[ICD10: G43.909] Diagnosis: Generalized abdominal pain[ICD10: R10.84] Diagnosis: Cough[ICD10: R05] Belia Anushka REID [facility] CPT-4: 39773 08/20/2016 ([id number]) OFFICE/OUTPATIENT VISIT EST Diagnosis: Chronic obstructive pulmonary disease, unspecified[ICD10: J44.9] Diagnosis: Stridor[ICD10: R06.1] Belia REID DO [facility] CPT-4: 97721 06/19/2016 ([id number]) OFFICE/OUTPATIENT VISIT EST Diagnosis: Chronic obstructive pulmonary disease, unspecified[ICD10: J44.9] Diagnosis: Personal history of urinary (tract) infections[ICD10: Z87.440] Belia REID DO [facility] CPT-4: 94294 06/04/2016 ([id number]) OFFICE/OUTPATIENT VISIT EST Diagnosis: Stridor[ICD10: R06.1] Diagnosis: Chronic obstructive pulmonary disease with acute lower respiratory infection[ICD10: J44.0] Diagnosis: Other specified diseases of intestine[ICD10: K63.89] Diagnosis: Cystitis, unspecified without hematuria[ICD10: N30.90] Belia REID [facility] CPT-4: 80849 05/02/2016 ([id number]) OFFICE/OUTPATIENT VISIT EST Diagnosis: Fibromyalgia[ICD10: M79.7] Diagnosis: Urinary tract infection, site not specified[ICD10: N39.0] Belia REID DO [facility] CPT-4: 21172 04/03/2016 ([id number]) OFFICE/OUTPATIENT VISIT EST Diagnosis: Unspecified asthma, uncomplicated[ICD10: J45.909] Diagnosis: Cough[ICD10: R05] Lidia Jaiden REID DO [facility] T-4: 17709 02/29/2016 ([id number]) OFFICE/OUTPATIENT VISIT EST Diagnosis: Migraine, unspecified, intractable, without status migrainosus[ICD10: G43.919] Diagnosis: Urinary tract infection, site not specified[ICD10: N39.0] Belia REID DO [facility] CPT-4: 49045 02/02/2016 ([id number]) OFFICE/OUTPATIENT VISIT EST Diagnosis: Urinary tract infection, site not specified[ICD10: N39.0] Diagnosis: Unspecified abdominal pain[ICD10: R10.9] Diagnosis: Pain in thoracic spine[ICD10: M54.6] Diagnosis: Type 2 diabetes mellitus with diabetic neuropathic arthropathy[ICD10: E11.610] Belia Yandelisabellaannie HSUBELIA BushraMayda ANUSHKA [facility] CPT-4: 67194 12/05/2015 ([id number]) OFFICE/OUTPATIENT VISIT EST Diagnosis: Chronic obstructive pulmonary disease with (acute) exacerbation[ICD10: J44.1] Diagnosis: Migraine, unspecified, not intractable, without status migrainosus[ICD10: G43.909] Lidia HSUQUELINE BushraMayda ANUSHKA [facility] CPT -4: 46160 10/26/2015 ([id number]) OFFICE/OUTPATIENT VISIT EST Diagnosis: Hematuria, unspecified[ICD10: R31.9] Diagnosis: Urinary tract infection, site not specified[ICD10: N39.0] Lidia Jaiden BELIA BushraMayda ANUSHKA [facility] CPT-4: 10810 10/05/2015 OFFICE/OUTPATIENT VISIT EST Diagnosis: Chronic obstructive pulmonary disease, unspecified[ICD10: J44.9] Diagnosis: Muscle weakness (generalized)[ICD10: M62.81] Diagnosis: Polyneuropathy, unspecified[ICD10: G62.9] Diagnosis: Other intervertebral disc degeneration, 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] Diagnosis: Fibromyalgia[ICD10: M79.7] Belia Yandelisabellaannie HSUBELIA Yuridia DOMINGUEZ [facility] CPT-4: 59806 09/15/2015 ([id number]) OFFICE/OUTPATIENT VISIT EST Diagnosis: Disorientation, unspecified[ICD10: R41.0] Diagnosis: Headache[ICD10: R51] Diagnosis: Paresthesia of skin[ICD10: R20.2] Lidia Paredes BushraMayda ANUSHKA [facility] CPT-4: 40907 08/24/2015 ([id number]) OFFICE/OUTPATIENT VISIT EST Diagnosis: Type 2 diabetes mellitus with hyperglycemia[ICD10: E11.65] Diagnosis: Chronic obstructive pulmonary disease with acute lower respiratory infection[ICD10: J44.0] Belia BRUNSON BushraMayda ANUSHKA [facility] CPT-4: 68543 07/05/2015 ([id number]) OFFICE/OUTPATIENT VISIT EST Diagnosis: Mild intermittent asthma with (acute) exacerbation[ICD10: J45.21] Diagnosis: Chronic obstructive pulmonary disease, unspecified[ICD10: J44.9] Belia REID [facility] CPT-4: 04280 06/06/2015 ([id number]) OFFICE/OUTPATIENT VISIT EST Diagnosis: Chronic obstructive pulmonary disease with (acute) exacerbation[ICD10: J44.1] Lidia REID [facility] CPT- 4: 03639 05/23/2015 ([id number]) OFFICE/OUTPATIENT VISIT EST Diagnosis: Type 2 diabetes mellitus with hyperglycemia[ICD10: E11.65] Diagnosis: Functional dyspepsia[ICD10: K30] Belia REID [facility] CPT-4: 20351 05/05/2015 ([id number]) OFFICE/OUTPATIENT VISIT EST Diagnosis: Type 2 diabetes mellitus with hyperglycemia[ICD10: E11.65] Diagnosis: Glycosuria[ICD10: R81] Diagnosis: Urinary tract infection, site not specified[ICD10: N39.0] Belia REID [facility] CPT-4: 05117 03/30/2015 ([id number]) OFFICE/OUTPATIENT VISIT EST Diagnosis: Generalized abdominal pain[ICD10: R10.84] Diagnosis: Diarrhea, unspecified[ICD10: R19.7] Diagnosis: Urinary tract infection, site not specified[ICD10: N39.0] Diagnosis: Gastro-esophageal reflux disease without esophagitis[ICD10: K21.9] Belia REID [facility] CPT-4: 90725 02/03/2015 ([id number]) OFFICE/OUTPATIENT VISIT EST Diagnosis: Other specified noninflammatory disorders of vagina[ICD10: N89.8] Diagnosis: Follicular disorder, unspecified[ICD10: L73.9] Diagnosis: Functional dyspepsia[ICD10: K30] Diagnosis: FLU VACCINE[ICD10: Z23] Belia [facility] CPT-4: 21515 12/29/2014 ([id number]) OFFICE/OUTPATIENT VISIT EST 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] Diagnosis: RESTLESS LEGS SYNDROME[ICD9: 333.94] Diagnosis: MIGRAINE NOS/NOT INTRCBL[ICD9: 346.90] Belia REID [facility] CPT-4: 72174 09/02/2014 ([id number]) OFFICE/OUTPATIENT VISIT EST Diagnosis: Cervical radiculopathy[ICD9: 723.4] Diagnosis: Cervicalgia[ICD9: 723.1] Diagnosis: Degenerative disc disease, cervical[ICD9: 722.4] 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I[ICD9: 250.00] Belia REID [facility] CPT-4: 14687 04/01/2014 OFFICE/OUTPATIENT VISIT EST Diagnosis: Reactive airway disease[ICD9: 493.90] Belia REID [facility] CPT-4: 31208 03/16/2014 ([id number]) OFFICE/OUTPATIENT VISIT EST Diagnosis: BRONCHITIS, ACUTE[ICD9: 466.0] Diagnosis: Reactive airway disease[ICD9: 493.90] Belia REID [facility] CPT-4: 02407 03/09/2014 OFFICE/OUTPATIENT VISIT EST Diagnosis: BRONCHITIS, ACUTE[ICD9: 466.0] Diagnosis: WHEEZING[ICD9: 786.07] Huong Peguero [facility] CPT-4: 53426 03/03/2014 OFFICE/OUTPATIENT VISIT EST Diagnosis: BRONCHITIS, ACUTE[ICD9: 466.0] Diagnosis: WHEEZING[ICD9: 786.07] Huong Peguero [facility] CPT-4: 96530 03/01/2014 ([id number]) OFFICE/OUTPATIENT VISIT EST Diagnosis: GERD[ICD9: 530.81] Diagnosis: ARTHRALGIA-MULTIPLE SITES[ICD9: 719.49] Diagnosis: LUMB/LUMBOSAC DISC DEGEN[ICD9: 722.52] Diagnosis: - I - FIBROMYALGIA[ICD9: 729.1] Belia REID [facility] CPT-4: 44220 02/09/2014 ([id number]) OFFICE/OUTPATIENT VISIT EST Diagnosis: Peptic ulcer disease[ICD9: 533.90] Diagnosis: RESTLESS LEGS SYNDROME[ICD9: 333.94] Diagnosis: Neuropathy[ICD9: 355.9] Belia FREDERICK DO [facility] CPT-4: 53850 12/23/2013 ([id number]) OFFICE/OUTPATIENT VISIT EST Diagnosis: URINARY TRACT INFECTION[ICD9: 599.0] Belia REID DO [facility] CPT-4: 19961 10/30/2013 ([id number]) OFFICE/OUTPATIENT VISIT EST Diagnosis: Flank pain[ICD9: 789.00] Belia MARTINEZ [facility] CPT-4: 10488 10/21/2013 ([id number]) OFFICE/OUTPATIENT VISIT EST Diagnosis: INFLAMED SEBORR KERATOS[ICD9: 702.11] Diagnosis: Brachioradial pruritus[ICD9: 698.9] Diagnosis: ASTHMA NOS[ICD9: 493.90] Belia MARTINEZ [facility] CPT-4: 05879 10/05/2013 ([id number]) OFFICE/OUTPATIENT VISIT EST Diagnosis: HYPERTENSION[ICD9: 401.9] Diagnosis: - I - FIBROMYALGIA[ICD9: 729.1] Diagnosis: DIZZINESS/VERTIGO[ICD9: 780.4] Diagnosis: MIGRAINE NOS/NOT INTRCBL[ICD9: 346.90] Diagnosis: Diabetic peripheral neuropathy[ICD9: 250.60] Diagnosis: Flank pain[ICD9: 789.00] Belia MARTINEZ [facility] CPT-4: 00942 08/04/2013 ([id number]) OFFICE/OUTPATIENT VISIT EST Diagnosis: ALLERGIC RHINITIS[ICD9: 477.9] Belia REID DO [facility] CPT-4: 13842 07/13/2013 OFFICE/OUTPATIENT VISIT EST Diagnosis: URINARY TRACT INFECTION[ICD9: 599.0] Huong Osborne KRAIG REID DO [facility] CPT-4: 67812 07/03/2013 OFFICE/OUTPATIENT VISIT EST Diagnosis: HYPERTENSION[ICD9: 401.9] Diagnosis: URINARY TRACT INFECTION[ICD9: 599.0] Diagnosis: BACKACHE[ICD9: 724.5] Diagnosis: URINARY INCONTINENCE[ICD9: 788.30] Huong [place] CORNELLKIMI MARIE Yuridia REID [facility] CPT-4: 63370 05/27/2013 ([id number]) OFFICE/OUTPATIENT VISIT EST Diagnosis: Flank pain[ICD9: 789.00] Belia Yandelkatina BELIA BushraMayda KIESHA POOLE [facility] CPT-4: 68668 05/25/2013 ([id number]) OFFICE/OUTPATIENT VISIT EST Diagnosis: B-COMPLEX DEFIC NEC[ICD9: 266.2] Belia Humphriesisabellaannie CORNELLBELIA Yuridia REID [facility] CPT-4: 32824 05/04/2013 ([id number]) OFFICE/OUTPATIENT VISIT EST Diagnosis: ALLERGIC RHINITIS[ICD9: 477.9] Diagnosis: Vitamin B12 deficiency[ICD9: 266.2] Belia Yandelkatina CORNELLFelicita DONNA Yuridia [facility] CPT-4: 13246 04/17/2013 ([id number]) OFFICE/OUTPATIENT VISIT EST 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I[ICD9: 250.00] Diagnosis: URINARY TRACT INFECTION[ICD9: 599.0] Diagnosis: DIZZINESS/VERTIGO[ICD9: 780.4] Diagnosis: DIARRHEA[ICD9: 787.91] Belializ Reid BELIA BushraMayda RALF Peguero [facility] CPT-4: 10265 04/06/2013 ([id number]) OFFICE/OUTPATIENT VISIT EST Diagnosis: URINARY TRACT INFECTION[ICD9: 599.0] Diagnosis: URINARY RETENTION[ICD9: 788.20] Belia Yandelkatina BELIA BushraMayda ANUSHKA [facility] CPT-4: 34714 11/10/2012 ([id number]) OFFICE/OUTPATIENT VISIT EST Diagnosis: TACHYCARDIA[ICD9: 785.0] Diagnosis: SYNCOPE AND COLLAPSE[ICD9: 780.2] Diagnosis: CONSCIOUSNS ALTERAT NEC[ICD9: 780.09] Belia Yandelkatina CALVO BushraMayda ANUSHKA [facility] CPT-4: 96417 09/02/2012 OFFICE/OUTPATIENT VISIT EST Diagnosis: TACHYCARDIA[ICD9: 785.0] Diagnosis: SYNCOPE AND COLLAPSE[ICD9: 780.2] Belia REID DO [facility] CPT-4: 73780 08/04/2012 ([id number]) OFFICE/OUTPATIENT VISIT EST Diagnosis: Loss of consciousness[ICD9: 780.09] Diagnosis: Tachycardia[ICD9: 785.0] Diagnosis: MALAISE AND FATIGUE[ICD9: 780.79] Belia REID DO [facility] CPT-4: 50050 07/21/2012 ([id number]) OFFICE/OUTPATIENT VISIT EST Diagnosis: BRONCHITIS, ACUTE[ICD9: 466.0] Diagnosis: ASTHMA NOS[ICD9: 493.90] Belia POOLE [facility] CPT-4: 24244 07/02/2012 ([id number]) OFFICE/OUTPATIENT VISIT EST Diagnosis: CEPHALGIA[ICD9: 784.0] Belia Peguero [facility] CPT-4: 33366 06/25/2012 ([id number]) OFFICE/OUTPATIENT VISIT EST Diagnosis: GERD[ICD9: 530.81] Diagnosis: DIARRHEA[ICD9: 787.91] Diagnosis: URINARY TRACT INFECTION[ICD9: 599.0] Diagnosis: ASTHMA NOS[ICD9: 493.90] Diagnosis: ALLERGIC RHINITIS[ICD9: 477.9] Belia REID [facility] CPT-4: 29576 06/24/2012 ([id number]) OFFICE/OUTPATIENT VISIT EST Diagnosis: MIGRAINE NOS/NOT INTRCBL[ICD9: 346.90] Diagnosis: TREMOR NEC[ICD9: 333.1] Diagnosis: CHRONIC PAIN SYNDROME[ICD9: 338.4] Belia BASS MARIE Yuridia REID [facility] CPT-4: 47151 05/20/2012 ([id number]) OFFICE/OUTPATIENT VISIT EST Diagnosis: DIZZINESS/VERTIGO[ICD9: 780.4] Diagnosis: PALPITATIONS[ICD9: 785.1] Diagnosis: TREMOR NEC[ICD9: 333.1] Diagnosis: ANXIETY STATE NOS[ICD9: 300.00] Diagnosis: POSTTRAUMATIC STRESS DISORDER[ICD9: 309.81] Belia CORNELLLINE Yuridia REID [facility] CPT-4: 01105 05/08/2012 ([id number]) OFFICE/OUTPATIENT VISIT EST Diagnosis: MIGRAINE NOS/NOT INTRCBL[ICD9: 346.90] Diagnosis: FIBROMYALGIA[ICD9: 729.1] Diagnosis: SYNCOPE AND COLLAPSE[ICD9: 780.2] Diagnosis: Diabetic peripheral neuropathy[ICD9: 250.60] Belia TomlinsonMayda LUIS [facility] CPT-4: 89887 04/22/2012 OFFICE/OUTPATIENT VISIT EST Diagnosis: ROTATOR CUFF DIS NEC[ICD9: 726.19] Diagnosis: JOINT PAIN-SHLDER[ICD9: 719.41] Diagnosis: DYSPEPSIA[ICD9: 536.8] Belia CORNELLLINE BushraMayda RALF ePguero [facility] CPT-4: 55836 02/13/2012 ([id number]) OFFICE/OUTPATIENT VISIT EST Diagnosis: MIGRAINE NOS/NOT INTRCBL[ICD9: 346.90] Diagnosis: GERD[ICD9: 530.81] Diagnosis: DYSPEPSIA[ICD9: 536.8] Belia CORNELLLINE BushraMayda RALF [facility] CPT-4: 03449 01/28/2012 OFFICE/OUTPATIENT VISIT EST Diagnosis: CEPHALGIA[ICD9: 784.0] Diagnosis: MIGRAINE NOS/NOT INTRCBL[ICD9: 346.90] Diagnosis: GERD[ICD9: 530.81] Diagnosis: INSOMNIA NOS[ICD9: 780.52] Belia Yandelisabellaannie HSUBELIA BushraMayda RAND DAILEYER [facility] CPT-4: 33997 12/26/2011 ([id number]) OFFICE/OUTPATIENT VISIT EST Diagnosis: CEPHALGIA[ICD9: 784.0] Diagnosis: MIGRAINE NOS/NOT INTRCBL[ICD9: 346.90] Diagnosis: MALAISE AND FATIGUE[ICD9: 780.79] Diagnosis: FIBROMYALGIA[ICD9: 729.1] Diagnosis: ALLERGIC RHINITIS[ICD9: 477.9] Belia Anushka BELIA Bushra Mayda LUIS [facility] CPT-4: 67318 11/14/2011 ([id number]) OFFICE/OUTPATIENT VISIT EST Diagnosis: MALAISE AND FATIGUE[ICD9: 780.79] Diagnosis: MUSCLE WEAKNESS-GENERAL[ICD9: 728.87] Diagnosis: MIGRAINE NOS/NOT INTRCBL[ICD9: 346.90] Diagnosis: JOINT PAIN-SHLDER[ICD9: 719.41] Belia REID [facility] CPT-4: 02225 09/12/2011 ([id number]) OFFICE/OUTPATIENT VISIT EST Diagnosis: CONCUSSION[ICD9: 850.9] Diagnosis: Ataxia[ICD9: 781.3] Diagnosis: DIZZINESS/VERTIGO[ICD9: 780.4] Belia REID [facility] CPT-4: 63306 08/15/2011 ([id number]) OFFICE/OUTPATIENT VISIT EST Diagnosis: THROMBOPHLEBITIS[ICD9: 451.9] Diagnosis: Subacromial bursitis[ICD9: 726.19] Diagnosis: ALLERGIC RHINITIS[ICD9: 477.9] Diagnosis: Lipoma[ICD9: 214.9] [facility] 19320 08/09/2011 ([id number]) OFFICE/OUTPATIENT VISIT EST Diagnosis: THROMBOPHLEBITIS[ICD9: 451.9] Diagnosis: Arm pain[ICD9: 729.5] Diagnosis: Clostridium difficile colitis[ICD9: 008.45] Diagnosis: URINARY TRACT INFECTION[ICD9: 599.0] Belia [facility] CPT-4: 21004 07/03/2011 ([id number]) OFFICE/OUTPATIENT VISIT EST Diagnosis: ARTHRALGIA-MULTIPLE SITES[ICD9: 719.49] Diagnosis: Muscle cramp[ICD9: 729.82] Diagnosis: INSOMNIA NOS[ICD9: 780.52] [facility]: 48334 06/04/2011 OFFICE/OUTPATIENT VISIT EST Diagnosis: Headache[ICD9: 784.0] Diagnosis: Allergic rhinitis[ICD9: 477.9] Belia [facility] CPT-4: 68102 05/03/2011 OFFICE/OUTPATIENT VISIT EST Diagnosis: LUMB/LUMBOSAC DISC DEGEN[ICD9: 722.52] Diagnosis: MIGRAINE NOS/NOT INTRCBL[ICD9: 346.90] Diagnosis: CHRONIC PAIN SYNDROME[ICD9: 338.4] Diagnosis: RESTLESS LEGS SYNDROME[ICD9: 333.94] Belia REID [facility] CPT-4: 78694 04/05/2011 OFFICE/OUTPATIENT VISIT EST Diagnosis: MIGRAINE NOS/NOT INTRCBL[ICD9: 346.90] Diagnosis: GERD[ICD9: 530.81] Belia REID [facility] CPT-4: 67333 03/08/2011 OFFICE/OUTPATIENT VISIT EST Diagnosis: URINARY TRACT INFECTION[ICD9: 599.0] Diagnosis: Vertigo[ICD9: 780.4] Diagnosis: GERD[ICD9: 530.81] Belia [facility] CPT-4: 50932 01/24/2011 OFFICE/OUTPATIENT VISIT EST Diagnosis: Hypotension[ICD9: 458.9] Diagnosis: Syncopal episodes[ICD9: 780.2] Diagnosis: MIGRAINE NOS/NOT INTRCBL[ICD9: 346.90] Diagnosis: MALAISE AND FATIGUE[ICD9: 780.79] Belia [facility] CPT-4: 97404 01/02/2011 OFFICE/OUTPATIENT VISIT EST Diagnosis: Tinea cruris[ICD9: 110.3] Diagnosis: Intertrigo[ICD9: 695.89] Diagnosis: MIGRAINE NOS/NOT INTRCBL[ICD9: 346.90] Belia HSUQ JOHN PAUL [facility] CPT-4: 74907 12/07/2010 OFFICE/OUTPATIENT VISIT EST Diagnosis: PALPITATIONS[ICD9: 785.1] Diagnosis: ANXIETY STATE NOS[ICD9: 300.00] Belia [facility] CPT-4: 40215 11/16/2010 OFFICE/OUTPATIENT VISIT EST Diagnosis: URINARY TRACT INFECTION[ICD9: 599.0] Diagnosis: MIGRAINE NOS/NOT INTRCBL[ICD9: 346.90] Iraida CASILLAS [facility] CPT-4: 81220 11/02/2010 OFFICE/OUTPATIENT VISIT EST Diagnosis: ALLERGIC RHINITIS[ICD9: 477.9] Diagnosis: ANXIETY STATE NOS[ICD9: 300.00] Belia [facility] CPT-4: 40812 10/18/2010 OFFICE/OUTPATIENT VISIT EST Belia [facility] CPT- 4: 91367 09/19/2010 OFFICE/OUTPATIENT VISIT EST Belia [facility] CPT- 4: 89379 09/06/2010 ([id number]) OFFICE/OUTPATIENT VISIT EST Belia CASILLAS [facility] CPT-4: 35505 08/10/2010 ([id number]) OFFICE/OUTPATIENT VISIT EST Belia CASILLAS [facility] CPT-4: 81757 05/11/2010 ([id number]) OFFICE/OUTPATIENT VISIT, EST Belia [facility]JIAL[facility] CPT-4: 64514 04/06/2010 ([id number]) OFFICE/OUTPATIENT VISIT, EST Belia HSU [facility] CPT-4: 69198 02/09/2010 ([id number]) OFFICE/OUTPATIENT VISIT, EST Belia [facility]SU [facility] CPT-4: 32992 01/05/2010 ([id number]) OFFICE/OUTPATIENT VISIT, EST Belia [facility]SU [facility] CPT-4: 63036 12/07/2009 ([id number]) OFFICE/OUTPATIENT VISIT, EST Belia [facility] CPT-4: 75611 11/08/2009 ([id number]) OFFICE/OUTPATIENT VISIT, EST Beliahanna HSU [facility] CPT-4: 32827 10/24/2009 ([id number]) OFFICE/OUTPATIENT VISIT, EST Beliahanna [facility]SU [facility] CPT-4: 89373 07/25/2009 ([id number]) OFFICE/OUTPATIENT VISIT, EST Belia [facility] CPT-4: 94616 05/26/2009 Plan of Care Planned Activity Notes [...] new home sleep study on patient through [place] to assess severity of symptoms, patient does [...] ICD-10 : R10.2 08/04/2019 Appointment: Pattie Sotomayor [address] [place], [place] [id number] ACUTE ILLNESS 08/04/2019 Visit Diagnosis Plan: Inspiratory stridor Discussion: Continue oxygen via [place] at 2 L Continue ativan at QID Follow Up: 4 weeks ICD-9 : 786.1 ICD-10 : R06.1 07/06/2019 Visit Diagnosis Plan: Diarrhea Discussion: Restart Col estid at once daily ICD-9 : 787.91 ICD-10 : R19.7 07/06/2019 Appointment: Belia Reid WPtel: [address] [place] [address] TELEMEDICINE 07/06/2019 Visit Diagnosis Plan: Left leg [...] : R06.00 06/24/2019 Appointment: Belia Reid WPtel: [address] [place] [address] TELEMEDICINE 06/24/2019 Visit Diagnosis Plan: Colitis Discussion: Levaquin/[place] gyl [place] Diet ICD-9 : 558.9 ICD-10 : K52.9 06/16/2019 Visit Diagnosis Plan: Acute bronchitis Discussion: Cov er with levaquin Increase SVNs with albuterol to QID Has oxygen using q HS routinely and prn To ER if oxygen levels drop or worsening respiratory symptoms ICD-9 : 466.0 ICD-10 : J20.9 06/16/2019 Appointment: Belia Reid WPtel: [facility] [place][note 2][address] TELEMEDICINE 06/16/2019 Patient Education: Levaquin- Opt[employer] Coupon [phone] [email or web address]/[email or web address] Completed 06/16/2019 Visit Diagnosis Plan: Diarrhea Discussion: Vancomycin for 10 days and notify if not improving or worsening BLAND diet Hydrate ICD-9 : 787.91 ICD-10 : R19.7 06/08/2019 Appointment: Belia Reid WPtel: [address] [place] [address] TELEMEDICINE 06/08/2019 Visit Diagnosis Plan: Colitis Discussion: Flagyl plus cipro to cover for both colitis and UTI Notify or to ER if worsening ICD-9 : 558.9 ICD-10 : K52.9 05/26/2019 Visit Diagnosis Plan: Acute febrile illness Discussion : Notify if worsens ICD-9 : 780.60 ICD-10 : R50.9 05/26/2019 Appointment: Belia Reid WPtel: [address] [place] [address] TELEMEDICINE 05/26/2019 Appointment: Pattie Sotomayor [address] RESCHEDULED 05/18/2019 Visit Diagnosis Plan: Chronic obstructive pulmonary di sease, unspecified Discussion: Recommend pulmonary rehab Patient states she never went to pulmonary rehab due to cost as well as transportation issues Finish trelagy Stop singulair Decrease hydroxyzine to 25mg po q HS Fwup [address] scan of Chest results discussed ICD-9 : 496 ICD-10 : J44.9 05/13/2019 Appointment: Belia Reid WPtel: [address] [place] [address] Hospital Follow Up 05/13/2019 Visit Diagnosis Plan: COUGH Discussion: Check CT scan of chest ICD-9 : 786.2 ICD-10 : R05 05/06/2019 Visit Diagnosis Plan: Stridor Discussion: Add Trelagy 1 p daily Add Singulair May need to see new solar energy consultant and designer ICD-9 : 786.1 ICD-10 : R06.1 05/06/2019 Appointment: Belia Reid WPtel: [address] [place], [place] [id number] FOLLOW UP 05/06/2019 Patient Education: Singulair- OptimizeRX Coupon [phone] [email or web address]/samplemd/resources/[email or web address] Completed 05/06/2019 Appointment: Belia Reid WPtel: [address] [place], [place] [phone] US RESCHEDULED 04/30/2019 Visit Diagnosis Plan: Stridor [...] G25.5 04/29/2019 Appointment: Belia Reid WPtel: [address] [place], [place] [address] Hospital Follow Up 04/29/2019 Patient Education: Valium- OptimizeRX Coupon [id number] https://www.Qwaya.[employer]/samplemd/resources/getResource/61/[email or web address] Completed 04/29/2019 Visit Diagnosis Plan: Flank pain [...] ICD-10 : R63.5 04/16/2019 Appointment: Pattie Sotomayor [address] [place], [place] [address] ACUTE ILLNESS 04/16/2019 Patient Education: cyclobenzaprine- OptimizeRX Coupon [id number] https://www.Qwaya.com/samplemd/resources/getResource/61/cj12b2n5-0181-1971-c1 Completed 04/16/2019 Visit Diagnosis Plan: Migraine, unspecif ied, not intractable, without status migrainosus Discussion: Increase gabapentin to 600mg po BID ICD-9 : 346.90 ICD-10 : G43.909 04/08/2019 Visit Diagnosis Plan: Generalized pruritus Discussion: Hydroxyzine 25mg po TID for itching and anxiety ICD-9 : 698.9 ICD-10 : L29.9 04/08/2019 Appointment: Belia Reid WPtel: [address] [place] [address] ACUTE ILLNESS 04/08/2019 Visit Diagnosis Plan: Cervicalgia [...] : M75.52 01/22/2019 Appointment: Belia Reid WPtel: [address] [place] [address] Hospital Follow Up 01/22/2019 Visit Diagnosis Plan: Abdominal pain Discussion: urine culture sent to assess for any infection. rocephin given in office to cover for pyelonephritis. instructed to push fluids. call office with any new or worsening symptoms. ICD-9 : 789.00 ICD-10 : R10.9 01/07/2019 Appointment: Pattie Sotomayor [address] [place] [address] ACUTE ILLNESS 01/07/2019 Visit Diagnosis Plan: Low back pain Discussion: Stat C T of abdomen/pelvis now ICD-9 : 724.2 ICD-10 : M54.5 12/24/2018 Appointment: Belia Reid WPtel: [address] [place] [address] FOLLOW UP 12/24/2018 Visit Diagnosis Plan: Migraine, [...] : M79.7 11/20/2018 Appointment: Belia Reid WPtel: [facility] [place][note 2]2 [place] [id number] ACUTE ILLNESS 11/20/2018 Patient Education: baclofen- OptimizeRX Coupon [id number] https://www.Qwaya.[employer] Oncology/samplemd/resources/getResource/61/[email or web address]-[email or web address]-70rp-01 Completed 11/20/2018 Visit Diagnosis Plan: Migraine, unspecif ied, intractable, without status migrainosus Discussion: toradol/phenergan given in o ffice (60 mg toradol, 12.5 mg phenergan). instructed to call if no improvement or worsening. instructed to follow up with type cutter since headaches are occurring more frequently to make sure vision is not the cause. ICD-9 : 346.91 ICD-10 : G43.919 11/04/2018 Visit Diagnosis Plan: Acute sinusitis, unspecified Dis cussion: zithromax prescribed to cover for sinus infection due to length of symptoms and clinincal s/s. ICD-9 : 461.9 ICD-10 : J01.90 11/04/2018 Appointment: Pattie Sotomayor [address] [place], [place] [address] ACUTE ILLNESS 11/04/2018 Appointment: Belia Reid WPtel: [facility] [place][note 2]4 [place] [id number] US CANCELED 09/24/2018 Visit Diagnosis Plan: Type [...] : I10 09/18/2018 Appointment: Belia Reid WPtel: [facility] [place][note 2]7 [facility] Annual Well Visit 09/18/2018 Patient Education: gabapentin- OptimizeRX Coupon [phone] https://www.uberlife/samplemd/resources/getResource/61/6s37jy83-4ev4-2peu-q9 Completed 09/18/2018 Visit Diagnosis Plan: Pain in [...] ICD-10 : M54.89 09/08/2018 Appointment: Pattie Sotomayor [address] [place], [place] [address] ACUTE ILLNESS 09/08/2018 Patient Education: prednisone- OptimizeRX Coupon [id number] https://www.Qwaya.[employer] Oncology/samplemd/resources/getResource/61/9y4ly13d-9675-65k3-vj Completed 09/08/2018 Visit Diagnosis Plan: Pruritus, unspecified [...] E10.9 08/20/2018 Appointment: [facility]Ptel[facility] [address] [facility] [facility] 08/20/2018 Patient Education: Lexapro- OptimizeRX Coupon [id number] Completed 08/20/2018 Patient Education: hydroxyzine HCl- OptimizeRX Coupon [id number] Completed 08/20/2018 Care Plan: MAMMOGRAM SCREENING [facility] : 2 6347-5 Pending 08/20/2018 Visit Diagnosis Plan: Paroxysmal atrial fibrillation D iscussion: Discuss eliquis need with cardiology at [facility] due to cost ICD-9 : 427.31 ICD-10 : I48.0 06/19/2018 Visit Diagnosis Plan: Hypotension due to drugs Discuss ion: Discussed decreasing cardizem dose due to low BP and edema but sees cardiology next week Follow Up: 1 months ICD-9 : 458.8 ICD-10 : I95.2 06/19/2018 Appointment: Belia Reid WPtel[facility] [phone] [facility] [facility] 06/19/2018 Visit Diagnosis Plan: [...] R61 06/09/2018 Appointment: Belia Reid WPtel: [address] [place] [address] FOLLOW UP 06/09/2018 Care Plan: CHEST X-RAY 2VW FRONTAL&LATL LOINC : 68007-7 Pending 05/26/2018 Visit Diagnosis Plan: Supraventricular tachycardia [...] : R53.1 05/21/2018 Appointment: Belia Reid WPtel: [address] [place] [address] Hospital Follow Up 05/21/2018 Visit Diagnosis Plan: Cervical disc diso rder with radiculopathy, unspecified cervical region Discussion: Scheduled for surgery on 06/02 10/[address] Faulkner ICD-9 : 722.0 ICD-10 : M50.10 04/16/2018 Appointment: Belia Reid WPtel: [address] [place] [address] Hospital Follow Up 04/16/2018 Visit Diagnosis Plan: [...] ICD-10 : G43.919 04/01/2018 Appointment: Pattie Sotomayor [address] [place] [address] ACUTE ILLNESS 04/01/2018 Appointment: Belia Reid WPtel: [address] [place] [address] 03/17/2018 Visit Diagnosis Plan: Chronic obstructiv e [...] : E11.65 03/06/2018 Appointment: Belia Reid WPtel: [facility] [place][note 2][address] Hospital Follow Up 03/06/2018 Visit Diagnosis Plan: Cervicalgia Discussion: spoke wi th dr. reid about patient. increased gabapentin to bid and started on celebrex bid. tramadrol rx written out to take prn. keep scheduled appt next week for myelogram. ICD-9 : 723.1 ICD-10 : M54.2 02/05/2018 Appointment: Pattie Sotomayor [address] [place] [address] ACUTE ILLNESS 02/05/2018 Care Plan: X-RAY EXAM NECK SPINE 4/5VWS cervical LOINC : 18280-4 Pending 01/21/2018 Visit Diagnosis Plan: Candidiasis of [...] ICD-10 : M54.2 01/20/2018 Appointment: Pattie Sotomayor [address] [place] [address] ACUTE ILLNESS 01/20/2018 Visit Diagnosis Plan: Pain in thoracic spine Discussio n: Proceed with CT scan of thoracic spine Will likely need PT ICD-9 : 724.1 ICD-10 : M54.6 12/25/2017 Appointment: Belia Reid WPtel: [address] [place] [address] FOLLOW UP 12/25/2017 Care Plan: CT THORAX W/O DYE LOINC : 473 66-0 Pending 12/25/2017 Visit Diagnosis Plan: Pain in thoracic spine Discussio n: Stretches Alternated heat/ice Topical aspercreme with lidocaine Flexeril Recheck 1 week Flu and Pneumovax given ICD-9 : 724.1 ICD-10 : M54.6 12/17/2017 Appointment: Belia Reid WPtel: [address] [place] [address] ACUTE ILLNESS 12/17/2017 Patient Education: Patient Medication [...] : J44.1 10/30/2017 Appointment: Belia Reid WPtel: [address] [place] [address] FOLLOW UP 10/30/2017 Patient Education: Patient Medication Summary Completed 10/30/2017 Visit Diagnosis Plan: Chronic obstructiv e pulmonary disease with acute lower respiratory infection Discussion: Continue SVNs with albuterol q4hrs Add Trelagy 1 inhalation daily Finish steroids Increase water intake Follow Up: 1 weeks ICD-9 : 496 ICD-10 : J44.0 10/23/2017 Appointment: Belia Reid WPtel: [address] [place] [address] WORK IN 10/23/2017 Patient Education: Patient Medication Summary Completed 10/23/2017 Appointment: Belia Reid WPtel: [address] [place] [address] NO SHOW 10/16/2017 Visit Diagnosis Plan: Confusional [...] : E11.65 09/17/2017 Appointment: Belia Reid WPtel: [address] [place] [address] Annual Well Visit 09/17/2017 Patient Education: Patient Medication Summary Completed 09/17/2017 Appointment: Belia Reid WPtel: [address] [place], [place] [phone] [place] INJECTION 08/26/2017 Patient Education: Patient Medication Summary Completed 08/26/2017 Appointment: Belia Reid WPtel: [address] [place], [place] [phone] [place] CANCELED 07/31/2017 Visit Diagnosis Plan: Encounter [...] ICD-10 : J20.9 07/19/2017 Appointment: Pattie Sotomayor [address] [place], [place] [address] ACUTE ILLNESS 07/19/2017 Patient Education: Patient Medication Summary Completed 07/19/2017 Care Plan: MAMMOGRAM SCREENING LOINC : 2 6347-5 Pending 07/19/2017 Patient Education: Patient Medication Summary Completed 06/05/2017 Care Plan: LIPID PANEL LOINC : 81143-3 Pending 06/05/2017 Care Plan: A1C HPLC LOINC : 68718-7 Pending 06/05/2017 Visit Diagnosis Plan: Rash and [...] ICD-10 : R21 05/29/2017 Appointment: Pattie Sotomayor [address] [place], [place] [address] FOLLOW UP 05/29/2017 Patient Education: Patient Medication Summary Completed 05/29/2017 Visit Diagnosis Plan: Tinea corporis Discussion: Diflu can and topical nystatin Follow Up: 2 weeks ICD-9 : 110.5 ICD-10 : B35.4 05/07/2017 Visit Diagnosis Plan: Diarrhea, unspecified Discussion : Diflucan Cholestyramine Recheck 2weeks ICD-9 : 787.91 ICD-10 : R19.7 05/07/2017 Appointment: Belia Reid WPtel[facility] [phone] [facility] [facility] 05/07/2017 Patient Education: Patient Medication Summary Completed 05/07/2017 Appointment: Belia Reid WPtel: [address] [place], [place] [phone] [place] RESCHEDULED 04/30/2017 Visit Diagnosis Plan: Chronic obstructiv e pulmonary disease with (acute) exacerbation Discussion: Finish prednisone Continue S VNS with albuterol ICD-9 : 491.21 ICD-10 : J44.1 03/18/2017 Visit Diagnosis Plan: Stridor Discussion: Increase Ati van 0.5mg po to TID routinely for next week then can go back to prn ICD-9 : 786.1 ICD-10 : R06.1 03/18/2017 Appointment: Belia Reid WPtel: [address] [place], [place] [phone] ER Follow UP 03/18/2017 Patient Education: Patient [...] E11.65 02/27/2017 Appointment: Belia Reid WPtel: [address] [place], [place] [phone] [place] FOLLOW UP 02/27/2017 Patient Education: Patient [...] ICD-10 : E11.65 02/22/2017 Appointment: Pattie Sotomayor [address] [place], [place] [address] ACUTE ILLNESS 02/22/2017 Patient Education: [...] J18.9 01/23/2017 Appointment: Belia Reid WPtel: [address] [place] [address] ER Follow UP 01/23/2017 Patient Education: Patient Medication Summary Completed 01/23/2017 Appointment: Pattie Sotomayor [address] [place] [address] CANCELED 01/17/2017 Appointment: Pattie Sotomayor [address] [place] [address] Annual Well Visit 01/14/2017 Visit Diagnosis Plan: Type 2 diabetes mellitus with hy perglycemia Discussion: Check CMP, HbA1C Flu shot and Prevnar 13 given Follow Up: 3 months ICD-9 : 250.02 ICD-10 : E11.65 12/20/2016 Visit Diagnosis Plan: Localized edema Discussion: Low Na diet Compression socks/Elevate feet ICD-9 : 782.3 ICD-10 : R60.0 12/20/2016 Appointment: Belia Reid WPtel: [facility] [place][note 2]2 [place] [address] [place] FOLLOW UP 12/20/2016 Patient Education: Patient Medication Summary Completed 12/20/2016 Patient Education: Patient Medication Summary Completed 10/10/2016 Visit Plan: Xrays of cervical, thoracic and lumbar spine at [facility] for Mobic (stop NSAIDS except Tylenol) and Flexeril UA sent for C&S Using SVN Call in 2-3 days if pain not improved or any worsening 10/08/2016 Appointment: Celeste Ferreira WPtel: [address] [facility] ACUTE ILLNESS 10/08/2016 Patient Education: Patient [...] : E11.65 09/19/2016 Appointment: Belia Reid WPtel: [facility] [place][note 2]6 [facility] 09/18 confirmed`sl FOLLOW UP 09/19/2016 Patient Education: [...] R10.84 08/20/2016 Appointment: Belia Reid WPtel: [phone] [facility] 08/16 confirmed~sl FOLLOW UP 08/20/2016 Patient Education: [...] J44.9 06/19/2016 Appointment: Belia Reid WPtel: [address] [place], [place] [phone] 06/18 confirmed ~ Hospital Follow Up 06/19/2016 [...] Z87.440 06/04/2016 Appointment: Belia Reid WPtel: [address] [place], [place] [phone] 06/01 confirmed~ FOLLOW UP 06/04/2016 Patient Education: [...] : R06.1 05/02/2016 Appointment: Belia Reid WPtel: [address] [place], [place] [phone] 05/01 confirmed ~ Hospital Follow Up 05/02/2016 [...] : N39.0 04/03/2016 Appointment: Belia Reid WPtel: [address] [place] [address] 04/02 confirmed~ Hospital Follow Up 04/03/2016 Patient Education: Patient Medication Summary Completed 04/03/2016 Visit Plan: Lungs are clear Her symptoms and exam are all upper airway restriction/constriction Can try supportive care Rx as above Follow up PRN 02/29/2016 Appointment: Lidia Hwang [address] [place] [address] ACUTE ILLNESS 02/29/2016 Patient Education: Patient Medication Summary Completed 02/29/2016 Visit Plan: Toradol/Phenergan today for Migraine Change to Clindamycin to cover lactobacillus for UTI Cover with flagyl due to hx of C. Diff 02/02/2016 Appointment: Belia Reid WPtel: [address] [place] [address] 01/31 confirmed`sl ACUTE ILLNESS 02/02/2016 Patient Education: Patient Medication Summary Completed 02/02/2016 Visit Plan: Increase neurontin to 300mg q AM and 600mg q PM Discussed neurology re-evaluation Flu shot given Need to check on Pneumonia shot Rx written out for albuterol 01/05/2016 Appointment: Belia Reid WPtel: [address] [place] [address] 01/03 confirmed ~sl Annual Well Visit 01/05/2016 Patient Education: Patient Medication Summary Completed 01/05/2016 Visit Plan: Cipro Culture urine hydrate Flexeril refilled Alternate heat and ice for back Increase gabapentin to 300mg po BID Notify if worsens 12/05/2015 Appointment: Belia Reid WPtel: [address] [place], [place] [phone] 11/30 confirmed~sl ACUTE ILLNESS 12/05/2015 Patient Education: Patient Medication Summary Completed 12/05/2015 Patient Education: Patient Medication Summary Completed 10/27/2015 Care Plan: [place] : [address]-2 Pending 10/27/2015 Care Plan: A1C HPLC LOINC : 99477-4 Pending 10/27/2015 Visit Plan: Lungs are CTA today and is f eeling improved overall Finish meds as ordered Continue inhalers and neb treatments Discussed migraine treatment options She does not feel she needs anything additional added today Refill of Januvia sent since no samples are available today 10/26/2015 Appointment: Lidia Hwang [address] [place] [address] Hospital Follow Up 10/26/2015 Appointment: Lidia Hwang [address] [place] [address] CANCELED 10/26/2015 Patient Education: Patient Medication Summary Completed 10/26/2015 Patient Education: Januvia - 18+ - KENNETH - No CA [place] Completed 10/26/2015 Visit Plan: Office dip still abnormal Cu lture pending Switch to cipro - stop macrobid Push fluids - avoid caffeine Will call with culture results when available Follow up if worsening 10/05/2015 Appointment: Lidia Hwang [address] [place] [address] ER Follow UP 10/05/2015 Patient Education: Patient Medication Summary Completed 10/05/2015 Visit Plan: Proceed with PT for document ation of ROM and strength of all extremities Proceed with Power Mobility Device Trial of neurontin 300mg q HS--lyrica helped but patient unable to afford Recheck 1month 09/15/2015 Appointment: Belia Reid WPtel: [phone] [facility] 09/13 confirmed~sl SPECIAL 09/15/2015 Patient Education: Patient Medication Summary Completed 09/15/2015 Visit Plan: Fille out Loan Discharge Pap erwork for total and permanent disability 08/25/2015 Patient Education: Patient Medication Summary Completed 08/25/2015 Visit Plan: Discussed with Dr Anushka Haywood at [facility] of head Will get last date of carotid doppler from her dramatic coach and update if needed 08/24/2015 Appointment: Lidia Hwang [address] [place], [place] [phone] 08/22 confirmed~sl ACUTE ILLNESS 08/24/2015 Patient Education: Patient Medication Summary Completed 08/24/2015 Patient Education: Patient Medication Summary Completed 08/24/2015 Care Plan: US EXAM OF HEAD AND NECK carotid Ultrasound LOIN C : 08256-8 Pending 08/24/2015 Visit Plan: Long discussion about diet A ccuchecks daily Check HbA1C, CMP Change requip to mirapex 07/05/2015 Appointment: Belia Reid WPtel: [address] [place] [address] 07/03 confirmed ~sl FOLLOW UP 07/05/2015 Patient Education: Patient Medication Summary Completed 07/05/2015 Visit Plan: Add Breo ellipta 100 1 p BID Continue SVNs with duoneb QID 06/06/2015 Appointment: Belia Reid WPtel: [address] [place] [address] Patient is calling for a ride, then retu rning our call.-sp 06/01 called and patient stated she will know saturday if she can get a ride~sl 06/05 [facility] Hospital Follow Up 06/06/2015 Patient [...] not improving 05/23/2015 Appointment: Huong Osborne WPtel: [facility] [place][note 2]7 [facility] ACUTE ILLNESS 05/23/2015 Appointment: Lidia Hwang [address] [facility] ER Follow UP 05/23/2015 Patient Education: Patient Medication Summary Completed 05/23/2015 Visit Plan: Check pancreatic enzymes and US of pancreas as patient can't understand why she has diabetes since has no family history Discussed weight, diet, exercise all play an important role in diabetes and are risk factors as well Continue Januvia and accuchecks daily 05/05/2015 Appointment: Belia Reid WPtel: [address] [place], [place] [phone] US FOLLOW UP 05/05/2015 Patient Education: Patient Medication Summary Completed 05/05/2015 Care Plan: US EXAM ABDOM COMPLETE LOINC : 70218-5 Ordered 05/05/2015 Visit Plan: Start Januvia 100mg daily [place] with diflucan and culture urine Accuchecks daily alternating times Recheck 6weeks 03/30/2015 Appointment: Belia Reid WPtel: [address] [place], [place] [address] 03/29 confirmed~lb FOLLOW UP 03/30/2015 Patient Education: Patient Medication Summary Completed 03/30/2015 Appointment: Belia Reid WPtel: [address] [place] [address] 03/01 needs reschedule due to payment and insurance ~sl FOLLOW UP 03/02/2015 Visit Plan: Patient was just in ER last night so has not filled scripts yet Start Carafate and Flagyl and Cipro Add Hyophen 1 po BID Recheck 1mo 02/03/2015 Appointment: Belia Reid WPtel: [address] [place], [place] [phone] [place] 02/02lm ~sl...02/03/15 appt confirmed cn ACUTE I LLNESS 02/03/2015 Patient Education: Patient Medication Summary Completed 02/03/2015 Visit Plan: Warm soaks to vaginal area K elex and Diflucan and observe Zofran to use prn 12/29/2014 Appointment: Belia Reid WPtel: [address] [place], [place] [phone] 12/28 Confirmed ~sl ACUTE ILLNESS 12/29/2014 Patient Education: Patient Medication Summary Completed 12/29/2014 Appointment: Huong Osborne WPtel: [address] [place], [place] [phone] FOLLOW UP 09/24/2014 Appointment: Belia Reid WPtel: [address] [place], [place] [phone] 09/15 confirmed -mf FOLLOW UP 09/16/2014 Visit Plan: Increase requip to 2mg po BI D Increase lyrica to 225mg total a day by adding an extra 75mg in AM Recheck in 2weeks Continue to patch left eye while sleeping 09/02/2014 Appointment: Belia Reid WPtel: [address] [place], [place] [phone] 09/01 appt confirmed Hospital Follow Up 09/02 Patient Education: Patient Medication Summary Completed 09/02/2014 Visit Plan: To Yessenia dominguez observat ion to R/O CVA 08/25/2014 Appointment: Huong Osborne WPtel: [address] [place], [place] [phone] ACUTE ILLNESS 08/25/2014 Patient Education: Patient Medication Summary Completed 08/25/2014 Referral: Aaron Jonas WPtel: [facility] [address] [place] location Initiated 04/26/2014 Referral: Brian Srinivasan [facility]Ptel[id number] Initiated 04/20/2014 Appointment: Belia Reid WPtel: [address] [place], [place] [phone] ER Follow UP 04/01/2014 Patient Education: Patient Medication Summary Completed 04/01/2014 Care Plan: MYELOGRAPHY NECK SPINE LOINC : 81074-3 Ordered 04/01/2014 Visit Plan: Continue Symbicort 160 at 2p BID Continue SVNs with duoneb at least QID Finish Levaquin Recheck 1mo on lyrica 03/16/2014 Appointment: Belia Reid WPtel: [address] [place], [place] [phone] 03/15 voicemail FOLLOW UP 03/16/2014 Patient Education: Patient Medication Summary Completed 03/16/2014 Visit Plan: Restart SVNs with duoneb QID Repeat prednisone Levaquin Continue symbicort Keep lyrica at same dose Recheck 1week 03/09/2014 Appointment: Belia Reid WPtel: [address] [place], [place] [phone] FOLLOW UP 03/09/2014 Patient Education: Patient Medication Summary Completed 03/09/2014 Appointment: Belia Reid WPtel: [address] [place], [place] [phone] 03/03 showed up 15 minutes late for appt -- put her on Huong's side for 10:45am FORGIVEN PER DR FOLLOW UP 03/03/2014 Appointment: Huong Osborne WPtel: [address] [place] [address] FOLLOW UP 03/03/2014 Patient Education: Patient Medication Summary Completed 03/03/2014 Appointment: Huong Osborne WPtel: [address] [place], [place] [phone] ER Follow UP 03/01/2014 Patient Education: Patient Medication Summary Completed 03/01/2014 Visit Plan: Add carafate for this next m onth Increase lyrica to 150mg q HS 02/09/2014 Appointment: Belia Reid WPtel: [address] [place], [place] [phone] [place] [address] Follow Up 02/09/2014 Patient Education: Patient Medication Summary Completed 02/09/2014 Visit Plan: Increase omeprazole back to 40mg po BID Use requip in AM and add lyrica 75mg q HS Recheck 1mo 12/23/2013 Appointment: Belia Reid WPtel: [address] [place], [place] [phone] FOLLOW UP 12/23/2013 Patient Education: Patient Medication Summary Completed 12/23/2013 Patient Education: Patient Medication Summary Completed 12/04/2013 Appointment: Belia Reid WPtel: [address] [place], [place] [phone] UA 10/30/2013 Patient Education: Patient Medication Summary Completed 10/30/2013 Appointment: Belia Reid WPtel: [address] [place], [place] [phone] UA 10/21/2013 Patient Education: Patient Medication Summary Completed 10/21/2013 Visit Plan: Cryotherapy as above TAC and hydroxyzine to use prn to itching spots and itching SKs Add Advair HFA 115/21 1 p BID 10/05/2013 Appointment: Belia Reid WPtel: [address] [place], [place] [phone] 10/01 pt called and confirmed ACUTE ILLNESS Patient Education: Patient Medication Summary Completed 10/05/2013 Appointment: Belia Reid WPtel: [address] [place], [place] [phone] will pay copay and part of past balance FOLLOW U P 08/04/2013 Patient Education: Patient Medication Summary Completed 08/04/2013 Appointment: Belia Reid WPtel: [address] [place], [place] [phone] US INJECTION 07/13/2013 Patient Education: Patient Medication Summary Completed 07/13/2013 Appointment: Huong Osborne WPtel: [address] [place], [place] [phone] ACUTE ILLNESS 07/03/2013 Patient Education: Patient Medication Summary Completed 07/03/2013 Visit Plan: Cipro and culture urine 05/27/2013 Appointment: Huong Osborne WPtel: [address] [place], [place] [address] [place] 05/26 confirmed appt and notified that balance and music copyist y is due at appt time FOLLOW UP 05/27/2013 Patient Education: Patient Medication Summary Completed 05/27/2013 Appointment: Belia Reid WPtel: [address] [place], [place] [address] [place] UA 05/25/2013 Patient Education: Patient Medication Summary Completed 05/25/2013 Appointment: Belia Reid WPtel: [address] [place], [place] [phone] US INJECTION 05/04/2013 Patient Education: Patient Medication Summary Completed 05/04/2013 Appointment: Belia Reidtel: [address] [place], [place] [phone] [place] INJECTION 04/17/2013 Patient Education: Patient Medication Summary Completed 04/17/2013 Appointment: Belia Reid WPtel: [address] [place], [place] [phone] [place] INJECTION 04/15/2013 Appointment: Belia Reid WPtel: [address] [place], [place] [phone] 04/02 vm FOLLOW UP 04/06/2013 Patient Education: Patient Medication Summary Completed 04/06/2013 Visit Plan: Obtain lab results including UA from [facility] 11/10/2012 Appointment: Belia Reidtel: [address] [place], [place] [phone] ER Follow UP 11/10/2012 Patient Education: Patient Medication Summary Completed 11/10/2012 Appointment: Belia Reidtel: [address] [place], [place] [phone] 10/30/12 patient canceled appt due to fin ances. Offered to work something out, patient declined-LB FOLLOW UP 11/05/2012 Visit Plan: Continue Bystolic at current dose Pt has fwup with Neurology on September 16 09/02/2012 Appointment: Belia Reid WPtel: [address] [place], [place] [phone] FOLLOW UP 09/02/2012 Patient Education: Patient Medication Summary Completed 09/02/2012 Visit Plan: Continue bystolic at 5mg chris ly Sees Neurology tomorrow Use oxygen at bedtime 08/04/2012 Appointment: Belia Reid WPtel: [address] [place] [address] FOLLOW UP 08/04/2012 Patient Education: Patient Medication Summary Completed 08/04/2012 Appointment: Belia Reid WPtel: [address] [place] [address] Hospital fwup for 07/21/12. merged appointments FOLLOW UP 07/24/2012 Visit Plan: Start Bystolic 5mg daily for tachycardia Fwup with neurology for further workup Overnight O2 sat 07/21/2012 Appointment: Belia Reid WPtel: [address] [place] [address] Hospital Follow Up 07/21/2012 Patient Education: Patient Medication Summary Completed 07/21/2012 Visit Plan: SVN with Albuterol QID Add A velox 400mg daily Notify if worsens or persists 07/02/2012 Appointment: Belia Reid WPtel: [address] [place] [address] ACUTE ILLNESS 07/02/2012 Patient Education: Patient Medication Summary Completed 07/02/2012 Appointment: Belia Reid WPtel: [address] [place], [place] [phone] INJECTION 06/25/2012 Patient Education: Patient Medication Summary Completed 06/25/2012 Appointment: Belia Reid WPtel: [address] [place], [place] [phone] FOLLOW UP 06/24/2012 Patient Education: Patient Medication Summary Completed 06/24/2012 [facility]ment[facility] [phone] [facility] [facility] left message FOLLOW UP 05/20/2012 [...] TID 05/08/2012 Appointment: Bel[facility] Reid [facility]el[facility] [phone] [facility] [facility] 05/08/2012 Patient Education: Patient Medication Summary Completed 05/08/2012 Visit Plan: Continue current meds Contin ue lower dose on pain meds and Diazepam Still waiting on paperwork for botox for Migraines Will restart Neurontin at 600mg po q HS Pt going to stop Depakote due to can't afford 04/22/2012 Appointment: Belia Reid WPtel: [address] [place], [place] [id number] 04/21 Hospital Follow Up 04/22/2012 Patient Education: Patient Medication Summary Completed 04/22/2012 Visit Plan: Injection to shoulder as abo ve Continue current meds Has appointment with neurology on HAs in 02/13/2012 Appointment: Belia Reid WPtel: [address] [place], [place] [id number] Pt does not have $10 copay at [facility] t time - will bring it in next week. Kianna iqbal'ed this. - [place] FOLLOW UP 02/13/2012 Patient Education: Patient Medication Summary Completed 02/13/2012 Visit Plan: Proceed with headache specia list Change nexium to Protonix Phenergan to use prn Sumatriptan to use prn Pt still on Inderal 01/28/2012 Appointment: Belia Reid WPtel: [facility] [place]note 2[place] [facility] Follow UP 01/28/2012 Patient Education: [...] sleep 12/26/2011 Appointment: Belia Reid WPtel: [address] [place], [place] [phone] 12/24- appt. confirmed FOLLOW UP 2 Patient Education: Patient Medication Summary Completed 12/26/2011 Appointment: Belia Reid WPtel: [address] [place], [place] [phone] [place] FOLLOW UP 11/14/2011 Patient Education: Patient Medication Summary Completed 11/14/2011 Appointment: Belia Reid WPtel: [address] [place] [phone] FOLLOW UP 09/12/2011 Patient Education: Patient Medication Summary Completed 09/12/2011 Visit Plan: Supportive care Decrease Liseth catalino to 50mg q HS Decrease AM dose of Valium to 5mg q HS Use Endocet sparingly 08/15/2011 Appointment: Belia Reid WPtel: [address] [place] [phone] ER Follow UP 08/15/2011 Patient Education: Patient Medication Summary Completed 08/15/2011 Appointment: Belia Reid WPtel: [address] [place] [phone] [place] Spoke directly to patient yesterday and confirmed the appoin tment. cn ACUTE ILLNESS 08/09/2011 Patient Education: Patient Medication Summary Completed 08/09/2011 Appointment: Belia Reid WPtel: [address] [place] [phone] Hospital Follow Up 07/03/2011 Patient Education: Patient Medication Summary Completed 07/03/2011 Appointment: Belia Reid WPtel: [address] [place] [phone] FOLLOW UP 06/04/2011 Patient Education: Patient Medication Summary Completed 06/04/2011 Visit Plan: Pt. wants "allergy shot" but in fact wants steroid shot. Will take a break from "generic Zyrtec they are getting from [place]" and try Singulair for 2 weeks. 05/03/2011 Appointment: Iraida Jones WPtel: [address] [place], [place] [id number] ACUTE ILLNESS 05/03/2011 Patient Education: Patient Medication Summary Completed 05/03/2011 Visit Plan: Neurontin 400mg q HS for 1we ek then 800mg q HS Decrease requip to 1mg q HS for 2wks then stop Fwup 2mos 04/05/2011 Appointment: Belia Reid WPtel: [address] [place], [place] [phone] FOLLOW UP 04/05/2011 Patient Education: Patient Medication Summary Completed 04/05/2011 Visit Plan: Trial of neurontin in 2wks C ontinue current meds for stomach Pt has procedure with Dr. Ortiz next week for stone removal 03/08/2011 Appointment: Belia Reid WPtel: [address] [place] [phone] Hospital Follow Up 03/08/2011 Patient Education: Patient Medication Summary Completed 03/08/2011 Appointment: Belia Reid WPtel: [address] [place] [phone] FOLLOW UP 02/19/2011 Visit Plan: reports increased [...] with Flagyl 01/24/2011 Appointment: Iraida Jones WPtel: [address] [place] [address] ACUTE ILLNESS 01/24/2011 Patient Education: Patient Medication Summary Completed 01/24/2011 Appointment: Belia Reid WPtel: [address] [place] [address] [place] FOLLOW UP 01/02/2011 Patient Education: Patient Medication Summary Completed 01/02/2011 Appointment: Belia Reid WPtel: [address] [place] [address] FOLLOW UP 12/12/2010 Appointment: Belia Reid WPtel: [address] [place] [address] ACUTE ILLNESS 12/07/2010 Patient Education: Patient Medication Summary Completed 12/07/2010 Visit Plan: Increase Buspar to 10mg po B ID 11/16/2010 Appointment: Belia Reid WPtel: [address] [place] [address] FOLLOW UP 11/16/2010 Patient Education: Patient Medication Summary Completed 11/16/2010 Appointment: Iraida Jones WPtel: [address] [place] [address] ER Follow UP 11/02/2010 Patient Education: Patient Medication Summary Completed 11/02/2010 Visit Plan: Depo-Medrol/Kenalog given fo r allergies Add BuSpar for anxiety Oxycodone one p.o. q.i.d. for number 120 refilled 10/18/2010 Appointment: Belia Reid WPtel: [address] [place] [address] [place] FOLLOW UP 10/18/2010 Patient Education: Patient Medication Summary Completed 10/18/2010 Visit Plan: Continue current meds Discus sed epidurals for back vs PT--will proceed with epidurals to thoracolumbar region to see if helps with pain 09/19/2010 Appointment: Belia Reid WPtel: [address] [place], [place] [phone] FOLLOW UP 09/19/2010 Patient Education: Patient Medication Summary Completed 09/19/2010 Visit Plan: DC MS contin Check CT scan t horacic spine Fwup pending above results 09/06/2010 Appointment: Belia Reid WPtel: [address] [place] [phone] FOLLOW UP 09/06/2010 Patient Education: Patient Medication Summary Completed 09/06/2010 Visit Plan: Continue current meds Restar t MS contin 15mg po BID and use oxycodone prn Use daily senokot-s 2 po BID 08/10/2010 Appointment: Belia Reid WPtel: [address] [place] [phone] FOLLOW UP 08/10/2010 Patient Education: Patient Medication Summary Completed 08/10/2010 Visit Plan: Depomedrol/Kenalog given Pt sees ENT later this month Cont current meds Mammo scheduled 05/11/2010 Appointment: Belia Reid WPtel: [address] [place] [address] FOLLOW UP 05/11/2010 Patient Education: Patient Medication Summary Completed 05/11/2010 Appointment: Belia Reid WPtel: [address] [place], [place] [phone] [facility] 05/04/2010 Patient Education: Patient Medication Summary Completed 05/04/2010 Visit Plan: Pt sent to lab for UA 04/28/2010 Appointment: Belia Reid WPtel: [address] [place] [phone] [facility] 04/28/2010 Patient Education: Patient Medication Summary Completed 04/28/2010 Visit Plan: Check CT angiogram of chest Restart Advair Use proair prn Cont current meds Fwup with Card as schedulec 04/06/2010 Appointment: Belia Reid WPtel: [address] [place], [place] [phone] [place] [address] Follow Up 04/06/2010 Patient Education: Patient Medication Summary Completed 04/06/2010 Visit Plan: Paperwork filled out for pow erchair Depomedrol/kenalog given Pt sees ENT in 2wks to assess nasal obstruction problems 02/09/2010 Appointment: Belia Reidtel: [address] [place], [place] [phone] ESTABLISHED PATIENT 02/09/2010 Patient Education: Patient Medication Summary Completed 02/09/2010 Visit Plan: Change Elavil to Trazadone 1 50mg q HS Diflucan and nystatin for tinea cruris 01/05/2010 Appointment: Belia Reid WPtel: [address] [place] [address] FOLLOW UP 01/05/2010 Patient Education: Patient Medication Summary Completed 01/05/2010 Appointment: Belia Reid WPtel: [address] [place] [address] FOLLOW UP 12/07/2009 Patient Education: Patient Medication Summary Completed 12/07/2009 Appointment: Belia Reid WPtel: [address] [place] [address] FOLLOW UP 11/22/2009 Visit Plan: Cont current meds and await MRI results from Dr. Meadows's office and his final recommendations Will need to follow-up at later date on deviated septum 11/08/2009 Appointment: Belia Reid WPtel: [address] [place], [place] [phone] FOLLOW UP 11/08/2009 Patient Education: Patient Medication Summary Completed 11/08/2009 Visit Plan: Cont PT/OT See Neurosurgery Cont Tortoise shell brace 10/24/2009 Appointment: Belia Reid WPtel: [address] [place], [place] [phone] FOLLOW UP 10/24/2009 Patient Education: Patient Medication Summary Completed 10/24/2009 Appointment: Belia Reid WPtel: [address] [facility] Hospital Follow Up 10/17/2009 Appointment: Belia Reid WPtel: [address] [place], [place] [phone] ACUTE ILLNESS 07/25/2009 Patient Education: Patient Medication Summary Completed 07/25/2009 Appointment: Belia Reid WPtel: [address] [place], [place] [phone] FOLLOW UP 05/26/2009 Patient Education: Patient Medication Summary Completed 05/26/2009 Referral: Chino Balderas WPtel: [facility] [place] Referral Initiated Referral: Merry Vale WPtel: [facility] [id number] Vale will review referral and book appointment Completed Referral: Francisco Javier Yoder WPtel: [address] [id number] [place] Patient needs EGD insurance will not inc rease a medication unless this procedure results show a need Completed Referral: Francisco Javier Yoder WPtel: [address] [id number] [place] Referral Historical Reference Referral: Francisco Javier Yoder WPtel: [address] [id number] [place] Referral Initiated Instructions Comment . 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 Long discussion [...] from "generic Zyrtec they are getting from [place]" and try Singulair for 2 weeks. . [...]
--- OUTSIDE RECORDS SUMMARY | 2019-08-27 07:58 | XMS REPORT | CCD ---
Author Author Diana Reid D.O. Organization [facility] Address [address] [place] [address] Phone Care Team Providers Care Lathe Spotter Name Role Phone [facility] PP Unavailable CCM Unavailable Summary Purpose Interface Exchange Insurance Providers Payer name Policy type / Coverage type Covered alliance party ID Effective Begin Date Effective End Date [employer] MEDICARE Medicare Part B [id number] 2019 Unknown Family History Family History data not found Social History Social History Element Codes Description Effective Dates Tobacco history SNOMED CT: 682054801 Nonsmoker 09/13/2010 Allergies, Adverse Reactions, Alerts Substance Reaction Codes Entered Date Inactivated Date Status Eggs reaction [id number] 09/15/2015 No Inactive Date Active _ Unknown [...] Fill Instructions Ativan 0.5 mg tablet RxNorm: 656652 1 Tablet(s) Oral th ree times a day for anxiety/shortness of air/stridor 07/29/2019 08/27/2019 Active Singulair 10 mg tablet RxNorm: 149751 1 Tablet(s) Oral QPM 07/29/19 20 01/25/2020 Active diltiazem CD 240 mg capsule,extended release 24 hr RxNorm: 8 70177 1 Capsule(s) Oral QD 07/15/2019 01/10/2020 Active metoprolol tartrate 50 mg tablet RxNorm: 321176 1 Table t(s) Oral two times a day 07/06/2019 No Stop Date Active Novolin N NPH U-100 Insulin isophane 100 unit/mL subcu taneous susp RxNorm: 109924 25 Unit(s) Subcutaneous two times a day 07/06/2019 07/06/2019 I nactive Colestid 1 gram tablet RxNorm: 3513086 1 Tablet(s) Oral two times a day for diarrhea 07/06/2019 09/04/2019 Active pramipexole 1 mg tablet RxNorm: 443343 1 Tablet(s) Oral QPM FOR RESTLESS LEGS (REPLACES REQUIP) 06/25/2019 06/19/2020 Active hydroxyzine HCl 25 mg tablet RxNorm: 128484 1 Tablet(s) Oral QPM for itching/aniety 06/25/2019 09/23/2019 Active Ativan 0.5 mg tablet RxNorm: 003510 1 Tablet(s) Oral th ree times a day for anxiety/shortness of air/stridor 06/25/2019 07/25/2019 Inactive Levaquin 500 mg tablet RxNorm: 608951 1 Tablet(s) Oral QD 06/16/2019 06/23/2019 Inactive Flagyl 500 mg tablet RxNorm: 313600 1 Tablet(s) Oral three time s a day 06/16/2019 06/23/2019 Inactive Vancocin 125 mg capsule RxNorm: 441224 1 Capsule(s) Oral four t imes a day 06/08/2019 06/18/2019 Inactive omeprazole 40 mg capsule,delayed release RxNorm: 511426 1 Capsule(s) Oral two times a day 05/26/2019 11/21/2019 Active Flagyl 500 mg tablet RxNorm: 809291 1 Tablet(s) Oral three time s a day 05/26/2019 06/05/2019 Inactive diltiazem CD 240 mg capsule,extended release 24 hr RxNorm: 8 38580 1 Capsule(s) Oral QD 05/26/2019 07/14/2019 Inactive Cipro 250 mg tablet RxNorm: 635602 1 Tablet(s) Oral two times a day 05/26/2019 06/02/2019 Inactive hydroxyzine HCl 25 mg tablet RxNorm: 966425 1 Tablet(s) Oral QPM for itching/aniety 05/21/2019 06/24/2019 Inactive metoprolol tartrate 25 mg tablet RxNorm: 779041 1 Table t(s) Oral two times a day 05/21/2019 07/05/2019 Inactive hydroxyzine HCl 25 mg tablet RxNorm: 266482 1 Tablet(s) Oral QPM for itching/aniety 05/13/2019 05/20/2019 Inactive Singulair 10 mg tablet RxNorm: 440904 1 Tablet(s) Oral QPM 05/06/1905/12/2019 Inactive gabapentin 600 mg tablet RxNorm: 287544 1 Tablet(s) Oral QD 020 06/05/2019 Inactive Valium 5 mg tablet RxNorm: 245860 1 Tablet(s) Oral QPM for stri joao/muscle spasm 04/29/2019 06/24/2019 Inactive baclofen 10 mg tablet RxNorm: 992391 1 Tablet(s) Oral QPM for s pasm/neck pain 04/24/2019 05/23/2019 Inactive baclofen 10 mg tablet RxNorm: 072366 1 Tablet(s) Oral QPM for s pasm/neck pain 04/24/2019 04/23/2019 Inactive Novolin N NPH U-100 Insulin isophane 100 unit/mL subcu taneous susp RxNorm: 554531 23 Unit(s) Subcutaneous two times a day 04/20/2019 07/05/2019 I nactive cyclobenzaprine 5 mg tablet RxNorm: 166286 1 Tablet(s) Oral three times a day as needed 04/16/2019 04/23/2019 Inactive hydroxyzine HCl 25 mg tablet RxNorm: 990359 1 Tablet(s) Oral three times a day for itching/aniety 04/08/2019 05/12/2019 Inactive gabapentin 600 mg tablet RxNorm: 437792 1 Tablet(s) Oral two ti mes a day 04/08/2019 05/05/2019 Inactive gabapentin 600 mg tablet RxNorm: 990041 1 Tablet(s) Oral two ti mes a day 04/08/2019 04/07/2019 Inactive Novolin N NPH U-100 Insulin isophane 100 unit/mL subcu taneous susp RxNorm: 694999 10 Unit(s) Subcutaneous two times a day 03/03/2019 04/19/2019 I nactive gabapentin 300 mg capsule RxNorm: 820779 1 Capsule(s) O ral every night at bedtime for neuropathy 02/26/2019 04/07/2019 Inactive gabapentin 300 mg capsule RxNorm: 646578 1 Capsule(s) O ral every night at bedtime for neuropathy 02/20/2019 02/25/2019 Inactive buspirone 5 mg tablet RxNorm: 464959 TAKE 1 TABLET THREE TIMES MILDRED Y 02/12/2019 05/12/2019 Inactive pramipexole 1 mg tablet RxNorm: 231183 1 Tablet(s) Oral QPM FOR RESTLESS LEGS (REPLACES REQUIP) 02/12/2019 06/24/2019 Inactive Lexapro 10 mg tablet RxNorm: 813761 TAKE 1 TABLET EVERY DAY FOR MOO D 01/31/2019 No Stop Date Active Ativan 0.5 mg tablet RxNorm: 999634 TAKE 1 TABLET BY MO UT THREE TIMES DAILY NEEDED FOR ANXIETY 01/26/2019 04/28/2019 Inactive Ativan 0.5 mg tablet RxNorm: 051851 TAKE 1 TABLET BY MO UT THREE TIMES DAILY NEEDED FOR ANXIETY 01/05/2019 01/05/2019 Inactive Levaquin 500 mg tablet RxNorm: 942668 1 Tablet(s) Oral QD 12/25/2018 12/24/2018 Inactive Levaquin 500 mg tablet RxNorm: 978594 1 Tablet(s) Oral QD 12/25/2018 01/04/2019 Inactive baclofen 10 mg tablet RxNorm: 309214 1 Tablet(s) Oral three maico es a day 11/20/2018 01/19/2019 Inactive Ativan 0.5 mg tablet RxNorm: 073178 TAKE 1 TABLET BY MO UT THREE TIMES DAILY NEEDED FOR ANXIETY 11/20/2018 01/04/2019 Inactive gabapentin 300 mg capsule RxNorm: 518723 1 Capsule(s) O ral every night at bedtime for neuropathy 11/20/2018 12/20/2018 Inactive Lexapro 10 mg tablet RxNorm: 212455 1 Tablet(s) PO QD for mood 07/201801/30/2019 Inactive Zithromax Z-Lj 250 mg tablet RxNorm: 214496 Tablet(s) PO take as directed 11/04/2018 11/19/2018 Inactive Insulin Syringe 1 mL 29 gauge x 1/2" RxNorm: 2 s yringes daily with insulin Dx: E11.65 10/08/2018 No Stop Date Active gabapentin 300 mg capsule RxNorm: 496700 1 Capsule(s) PO QHS fo r neuropathy 09/18/2018 10/17/2018 Inactive cyclobenzaprine 5 mg tablet RxNorm: 008064 1 Tablet(s) PO TID a s needed 09/09/2018 09/08/2018 Inactive cyclobenzaprine 5 mg tablet RxNorm: 291944 1 Tablet(s) PO TID a s needed 09/09/2018 10/08/2018 Inactive prednisone 20 mg tablet RxNorm: 796723 1 Tablet(s) PO QD 09/08/2018 0 09/12/2018 Inactive Lantus Solostar U-100 Insulin 100 unit/mL (3 mL) subcu taneous pen RxNorm: 091549 55 Unit(s) SQ QAM 08/28/2018 11/03/2018 Inactive hydroxyzine HCl 25 mg tablet RxNorm: 516590 1 Tablet(s) PO QHS for itching 08/20/2018 05/12/2019 Inactive Lexapro 10 mg tablet RxNorm: 292648 1 Tablet(s) PO QD for mood 08/0210/18/2018 Inactive sumatriptan 100 mg tablet RxNorm: 654038 1 Tablet(s) PO at headache onset. May repeat 1 in two hours if headache remains. Max of 2 per 24 hours 04/02/2018 05/20/2018 Inactive Diflucan 150 mg tablet RxNorm: 731662 1 Tablet(s) PO QD 03/18/2018 Inactive Diflucan 150 mg tablet RxNorm: 387279 1 Tablet(s) PO QD 03/18/2018 Inactive Flagyl 500 mg tablet RxNorm: 037814 1 Tablet(s) PO TID 03/17/2018 Inactive Levaquin 500 mg tablet RxNorm: 733290 1 Tablet(s) PO QD 03/17/2018 Inactive Levaquin 500 mg tablet RxNorm: 189828 1 Tablet(s) PO QD 03/17/2018 Inactive Flagyl 500 mg tablet RxNorm: 481532 1 Tablet(s) PO TID 03/17/2018 Inactive ketoconazole 200 mg tablet RxNorm: 448833 1 Tablet(s) PO QD 019 03/19/2018 Inactive Celebrex 200 mg capsule RxNorm: 134546 1 Capsule(s) PO BID 02/06/2005/20/2018 Inactive tramadol 50 mg tablet RxNorm: 079159 1 Tablet(s) PO TID as needed 1 04/08/2017 05/20/2018 Inactive gabapentin 300 mg capsule RxNorm: 519245 1 Capsule(s) PO BID 201705/20/2018 Inactive Diflucan 150 mg tablet RxNorm: 994738 1 Tablet(s) PO QD 01/20/2018 Inactive pramipexole 1 mg tablet RxNorm: 696291 1 Tablet(s) PO Q PM FOR RESTLESS LEGS (REPLACES REQUIP) 01/08/2018 02/11/2019 Inactive cyclobenzaprine 10 mg tablet RxNorm: 612221 1 Tablet(s) PO TID as needed for muscle spasm 12/17/2017 05/20/2018 Inactive pramipexole 1 mg tablet RxNorm: 552264 TAKE 1 TABLET BY MOUTH ONCE DAILY IN THE EVENING FOR RESTLESS LEGS (REPLACES REQUIP) 12/04/2017 01/05/2018 Inac tive Amaryl 4 mg tablet RxNorm: 203964 1 Tablet(s) PO BID replaces 2mg 0 11/05/2017 12/16/2017 Inactive Singulair 10 mg tablet RxNorm: 066955 1 Tablet(s) PO QHS for al lergies/lungs 10/30/2017 12/16/2017 Inactive Diflucan 100 mg tablet RxNorm: 267168 1 Tablet(s) PO QD 10/23/2017 Inactive Ativan 0.5 mg tablet RxNorm: 106248 TAKE 1 TABLET BY MOUTH THRE E TIMES DAILY 08/30/2017 11/20/2018 Inactive buspirone 5 mg tablet RxNorm: 489139 1 Tablet(s) PO TID 07/11/2017 Inactive propranolol 60 mg tablet RxNorm: 428260 1 Tablet(s) PO BID repl aces 40mg dose 06/26/2017 12/16/2017 Inactive Amaryl 4 mg tablet RxNorm: 964976 1 Tablet(s) PO BID replaces 2mg 0 06/12/2017 11/05/2017 Inactive omeprazole 40 mg capsule,delayed release RxNorm: 115402 1 Capsule(s) PO BID TAKE ONE CAPSULE BY MOUTH TWICE DAILY 05/30/2017 11/25/2017 Inactive pramipexole 1 mg tablet RxNorm: 513174 1 Tablet(s) PO Q PM for restless legs--replaces requip 05/30/2017 11/25/2017 Inactive amitriptyline 50 mg tablet RxNorm: 748947 1 Tablet(s) PO QHS 201709/16/2017 Inactive Diflucan 100 mg tablet RxNorm: 985641 1 Tablet(s) PO BID 05/07/2017 0 05/20/2017 Inactive nystatin (bulk) 100 million unit powder RxNorm: Application TO P BID 05/07/2017 05/20/2018 Inactive cholestyramine (with sugar) 4 gram oral powder RxNorm: 996850 1 Unit Dose PO QD 05/07/2017 01/20/2018 Inactive Ativan 0.5 mg tablet RxNorm: 786888 TAKE ONE TABLET BY MOUTH TH REE TIMES DAILY 05/01/2017 09/02/2017 Inactive Trulicity 1.5 mg/0.5 mL subcutaneous pen injector RxNorm: 15 78873 1 Unit Dose SQ WEEKLY 02/22/2017 03/23/2017 Inactive doxycycline hyclate 100 mg capsule RxNorm: 3742716 1 Capsule(s) PO BID 01/23/2017 02/05/2017 Inactive Amaryl 4 mg tablet RxNorm: 682378 1 Tablet(s) PO BID replaces 2mg 1 03/25/2016 05/22/2017 Inactive magnesium oxide 400 mg capsule RxNorm: 730082 1 Capsule(s) PO QD 07/18/2017 Inactive Ativan 0.5 mg tablet RxNorm: 883539 TAKE ONE TABLET BY MOUTH TH REE TIMES DAILY 01/17/2017 05/01/2017 Inactive Amaryl 2 mg tablet RxNorm: 222635 1 Tablet(s) PO BID 12/27/201601/22 Inactive Amaryl 2 mg tablet RxNorm: 797801 1 Tablet(s) PO BID 12/26/201612/26 Inactive Ativan 0.5 mg tablet RxNorm: 849942 TAKE ONE TABLET BY MOUTH TH REE TIMES DAILY 12/05/2016 01/18/2017 Inactive pramipexole 1 mg tablet RxNorm: 160989 1 Tablet(s) PO Q PM for restless legs--replaces requip 11/26/2016 05/30/2017 Inactive Mobic 15 mg tablet RxNorm: 160386 1 Tablet(s) PO QD 10/08/20162016 Inactive cyclobenzaprine 5 mg tablet RxNorm: 464382 1/2- 1 Tablet(s) PO TID 10/08/2016 10/17/2016 Inactive Ativan 0.5 mg tablet RxNorm: 501221 1 Tablet(s) PO TID 09/20/201607/2016 Inactive amitriptyline 50 mg tablet RxNorm: 426692 1 Tablet(s) PO QHS 201605/30/2017 Inactive propranolol 60 mg tablet RxNorm: 121614 1 Tablet(s) PO BID repl aces 40mg dose 09/19/2016 06/26/2017 Inactive Ativan 0.5 mg tablet RxNorm: 232998 1 Tablet(s) PO TID 08/20/2016 Inactive omeprazole 40 mg capsule,delayed release RxNorm: 846244 1 Capsule(s) PO BID TAKE ONE CAPSULE BY MOUTH TWICE DAILY 08/20/2016 05/30/2017 Inactive amitriptyline 50 mg tablet RxNorm: 763362 1 Tablet(s) PO QHS 201609/18/2016 Inactive pramipexole 1 mg tablet RxNorm: 433871 1 Tablet(s) PO Q PM for restless legs--replaces requip 07/23/2016 11/25/2016 Inactive Amaryl 2 mg tablet RxNorm: 795425 1 Tablet(s) PO BID 07/23/201612/27 Inactive propranolol 40 mg tablet RxNorm: 922535 1 Tablet(s) PO BID 07/13/19 17 09/18/2016 Inactive Ativan 0.5 mg tablet RxNorm: 498598 1 Tablet(s) PO QID 06/19/2016 Inactive Amaryl 2 mg tablet RxNorm: 152115 1 Tablet(s) PO BID 06/19/201607/22 Inactive Ativan 0.5 mg tablet RxNorm: 033331 1 Tablet(s) PO QID 06/19/2016 Inactive buspirone 5 mg tablet RxNorm: 504628 1 Tablet(s) PO TID 06/19/2016 Inactive Ativan 0.5 mg tablet RxNorm: 219060 1 Tablet(s) PO BID 05/24/2016 Inactive buspirone 5 mg tablet RxNorm: 015280 1 Tablet(s) PO TID 05/23/2016 Inactive Macrobid 100 mg capsule RxNorm: 924123 1 Capsule(s) PO QOD 05/03/19 17 10/07/2016 Inactive pramipexole 1 mg tablet RxNorm: 693263 Tablet(s) 1 Tabl et(s) PO QPM for restless legs--replaces requip 04/26/2016 06/24/2016 Inactive propranolol 40 mg tablet RxNorm: 226058 TAKE ONE TABLET BY MOUT H TWICE DAILY 04/26/2016 06/24/2016 Inactive Detrol LA 4 mg capsule,extended release RxNorm: 184530 1 Capsul e(s) PO QHS 04/03/2016 05/02/2016 Inactive prednisone 20 mg tablet RxNorm: 638781 1 Tablet(s) PO QD 02/29/2016 0 03/04/2016 Inactive Actos 30 mg tablet RxNorm: 044201 TAKE ONE TABLET BY MOUTH ONCE DAILY 02/27/2016 12/19/2016 Inactive clindamycin 300 mg capsule RxNorm: 449750 1 Capsule(s) PO TID 02/0102/08/2016 Inactive Flagyl 500 mg tablet RxNorm: 007792 1 Tablet(s) PO BID 02/02/201609/2015 Inactive omeprazole 40 mg capsule,delayed release RxNorm: 478116 TAKE ONE CAPSULE BY MOUTH TWICE DAILY 01/15/2016 07/12/2016 Inactive gabapentin 300 mg capsule RxNorm: 877437 1 Capsule(s) PO QAM an d 2 po q HS 01/05/2016 06/18/2016 Inactive gabapentin 300 mg capsule RxNorm: 759608 1 Capsule(s) P O BID 1 Capsule(s) PO QHS 12/05/2015 01/04/2016 Inactive cyclobenzaprine 10 mg tablet RxNorm: 585312 1 Tablet(s) PO TID for spasm as needed for muscle spasm 12/05/2015 06/18/2016 Inactive ciprofloxacin 250 mg tablet RxNorm: 886872 1 Tablet(s) PO BID 12/0412/14/2015 Inactive pramipexole 1 mg tablet RxNorm: 681606 Tablet(s) 1 Tabl et(s) PO QPM for restless legs--replaces requip 11/07/2015 11/26/2016 Inactive Januvia 100 mg tablet RxNorm: 000195 1 Tablet(s) PO QD 10/26/201504/2015 Inactive propranolol 40 mg tablet RxNorm: 061149 TAKE ONE TABLET BY MOUT H TWICE DAILY 10/25/2015 04/21/2016 Inactive gabapentin 300 mg capsule RxNorm: 106394 1 Capsule(s) PO QHS 201512/04/2015 Inactive Cipro 500 mg tablet RxNorm: 710896 1 Tablet(s) PO BID 10/05/2015 0811/2015 Inactive pramipexole 1 mg tablet RxNorm: 502398 Tablet(s) 1 Tabl et(s) PO QPM for restless legs--replaces requip 10/04/2015 11/02/2015 Inactive propranolol 40 mg tablet RxNorm: 517968 TAKE ONE TABLET BY MOUT H TWICE DAILY 09/26/2015 10/24/2015 Inactive Amaryl 2 mg tablet RxNorm: 168798 1 Tablet(s) PO QD 09/15/20152016 Inactive gabapentin 300 mg capsule RxNorm: 840732 1 Capsule(s) PO QHS 201510/14/2015 Inactive buspirone 5 mg tablet RxNorm: 425903 1 Tablet(s) PO TID 09/15/2015 Inactive pramipexole 1 mg tablet RxNorm: 485167 Tablet(s) 1 Tabl et(s) PO QPM for restless legs--replaces requip 09/08/2015 10/03/2015 Inactive pramipexole 1 mg tablet RxNorm: 340505 1 Tablet(s) PO Q PM for restless legs--replaces requip 08/08/2015 09/08/2015 Inactive Amaryl 2 mg tablet RxNorm: 288090 1 Tablet(s) PO QD 07/07/20152015 Inactive pramipexole 1 mg tablet RxNorm: 966690 1 Tablet(s) PO Q PM for restless legs--replaces requip 07/05/2015 08/03/2015 Inactive ropinirole 2 mg tablet RxNorm: 705924 TAKE ONE TABLET BY MOUTH TWICE DAILY 05/09/2015 09/14/2015 Inactive Diflucan 100 mg tablet RxNorm: 330336 1 Tablet(s) PO QD 03/30/2015 Inactive propranolol 40 mg tablet RxNorm: 223360 1 Tablet(s) PO BID 02/24/20 15 08/21/2015 Inactive [SAVINGS FOR UNINSURED PATIE NTS -- BIN:438487, PCN: ASPROD1, Group: AME08, ID# [id number], Process claim through Evolver, for questions: . THIS IS NOT INSURANCE.] Flagyl 500 mg tablet RxNorm: 333386 1 Tablet(s) PO BID 02/03/201502/2015 Inactive Cipro 500 mg tablet RxNorm: 248008 1 Tablet(s) PO BID 02/03/201502/01 Inactive Carafate 1 gram tablet RxNorm: 114116 1 Tablet(s) PO QID make i nto slurry 02/03/2015 09/14/2015 Inactive ondansetron HCl 4 mg tablet RxNorm: 068079 1 Tablet(s) PO Q4H as needed for nausea 12/29/2014 01/04/2016 Inactive Diflucan 100 mg tablet RxNorm: 061007 1 Tablet(s) PO QD 12/29/2014 Inactive Keflex 500 mg capsule RxNorm: 340884 1 Capsule(s) PO TID 12/29/2014 1 03/09/2014 Inactive omeprazole 40 mg capsule,delayed release RxNorm: 095272 1 Capsu le(s) PO BID 12/27/2014 12/21/2015 Inactive [SAVINGS FOR UNINSUR ED PATIENTS -- BIN:718646, PCN: ASPROD1, Group: AME08, ID# [id number], Process claim through Evolver, for questions: . THIS IS NOT INSURANCE.] ropinirole 2 mg tablet RxNorm: 150514 1 Tablet(s) PO BID 09/29/2014 0 03/27/2015 Inactive [SAVINGS FOR UNINSURED PATIENTS -- BIN:0 34923, PCN: ASPROD1, Group: AME08, ID# [id number], Process claim through Oob[employer]it[employer], for questions: . THIS IS NOT INSURANCE.] buspirone 5 mg tablet RxNorm: 736977 1 Tablet(s) PO TID 09/17/2014 Inactive ropinirole 2 mg tablet RxNorm: 289455 1 Tablet(s) PO BID 09/02/2014 0 09/28/2014 Inactive [SAVINGS FOR UNINSURED PATIENTS -- BIN:0 68118, PCN: ASPROD1, Group: AME08, ID# [id number], Process claim through Evolver, for questions: . THIS IS NOT INSURANCE.] Zyrtec 10 mg tablet RxNorm: 3658526 1 Tablet(s) PO QD 09/02/201412/02 Inactive propranolol 40 mg tablet RxNorm: 683673 1 Tablet(s) PO BID 07/21/19 15 02/23/2015 Inactive [SAVINGS FOR UNINSURED PATIE NTS -- BIN:551010, PCN: ASPROD1, Group: AME08, ID# [id number], Process claim through MedImpact, for questions: . THIS IS NOT INSURANCE.] ropinirole 2 mg tablet RxNorm: 701049 1 Tablet(s) PO QHS 05/14/2014 0 09/01/2014 Inactive [SAVINGS FOR UNINSURED PATIENTS -- BIN:0 25435, PCN: ASPROD1, Group: AME08, ID# [id number], Process claim through MedImpact, for questions: . THIS IS NOT INSURANCE.] cyclobenzaprine 10 mg tablet RxNorm: 850719 1 Tablet(s) PO QHS for spasm 04/06/2014 09/01/2014 Inactive ipratropium-albuterol 0.5 mg-3 mg(2.5 mg base)/3 mL ne bulization soln RxNorm: 5244254 1 Unit Dose INH Q4H 03/16/2014 No Stop Date Active [SAVINGS FOR UNINSURED PATIENTS -- BIN:711942, PCN: ASPROD1, Group: AME08, ID# [id number], Process claim through MedImpact, for questions: . THIS IS NOT INSURANCE.] prednisone 20 mg tablet RxNorm: 566963 1 Tablet(s) PO BID 03/09/2014 03/15/2014 Inactive [SAVINGS FOR UNINSURED PATIENTS -- BIN:0 25386, PCN: ASPROD1, Group: AME08, ID# [id number], Process claim through MedImpact, for questions: . THIS IS NOT INSURANCE.] ipratropium-albuterol 0.5 mg-3 mg(2.5 mg base)/3 mL ne bulization soln RxNorm: 0210454 1 Unit Dose INH Q4H 03/09/2014 03/15/2014 Inactive [SAVINGS FOR UNINSURED PATIENTS -- BIN:753005, PCN: ASPROD1, Group: AME08, ID# [id number], Process claim through MedImpact, for questions: . THIS IS NOT INSURANCE.] Levaquin 500 mg tablet RxNorm: 147316 1 Tablet(s) PO QD 03/09/2014 Inactive [SAVINGS FOR UNINSURED PATIENTS -- BIN:0 58729, PCN: ASPROD1, Group: AME08, ID# [id number], Process claim through MedImpact, for questions: . THIS IS NOT INSURANCE.] Carafate 1 gram tablet RxNorm: 936881 1 Tablet(s) PO AC & HS ma ke into slurry 02/09/2014 09/01/2014 Inactive [SAVINGS FOR UNINSUR ED PATIENTS -- BIN:560728, PCN: ASPROD1, Group: AME08, ID# [id number], Process claim through MedImpact, for questions: . THIS IS NOT INSURANCE.] Fioricet 50 mg-300 mg-40 mg capsule RxNorm: 8721952 1-2 Capsule(s) PO Q4H as needed for headache --max of 6 a day 02/09/2014 09/01/2014 Inactive [SAVINGS FOR UNINSURED PATIENTS -- BIN:286561, PCN: ASPROD1, Group: AME08, ID# [id number], Process claim through MedImpact, for questions: . THIS IS NOT INSURANCE.] propranolol 40 mg tablet RxNorm: 811508 1 Tablet(s) PO BID 12/08/19 14 06/04/2014 Inactive [SAVINGS FOR UNINSURED PATIE NTS -- BIN:723675, PCN: ASPROD1, Group: AME08, ID# [id number], Process claim through MedImpact, for questions: . THIS IS NOT INSURANCE.] buspirone 5 mg tablet RxNorm: 541134 1 Tablet(s) PO TID 12/02/2013 Inactive omeprazole 40 mg capsule,delayed release RxNorm: 102332 1 Capsu le(s) PO BID 11/25/2013 11/19/2014 Inactive [SAVINGS FOR UNINSUR ED PATIENTS -- BIN:128158, PCN: ASPROD1, Group: AME08, ID# [id number], Process claim through MedImpact, for questions: . THIS IS NOT INSURANCE.] ropinirole 2 mg tablet RxNorm: 752752 1 Tablet(s) PO QHS 11/10/2013 0 05/08/2014 Inactive [SAVINGS FOR UNINSURED PATIENTS -- BIN:0 04462, PCN: ASPROD1, Group: AME08, ID# [id number], Process claim through MedImpact, for questions: . THIS IS NOT INSURANCE.] Cipro 500 mg tablet RxNorm: 833008 1 Tablet(s) PO BID 10/21/201312/03 Inactive [SAVINGS FOR UNINSURED PATIENTS -- BIN:0 69989, PCN: ASPROD1, Group: AME08, ID# [id number], Process claim through MedImpact, for questions: . THIS IS NOT INSURANCE.] hydroxyzine HCl 25 mg tablet RxNorm: 120724 1 Tablet(s) PO Q4-6 H as needed 10/05/2013 01/04/2016 Inactive [SAVINGS FOR UNINSUR ED PATIENTS -- BIN:896894, PCN: ASPROD1, Group: AME08, ID# [id number], Process claim through MedImpact, for questions: . THIS IS NOT INSURANCE.] triamcinolone acetonide 0.1 % topical cream RxNorm: 9110504 Appl ication TOP BID 10/05/2013 09/01/2014 Inactive [SAVINGS FOR UNINSUR ED PATIENTS -- BIN:633231, PCN: ASPROD1, Group: AME08, ID# [id number], Process claim through MedImpact, for questions: . THIS IS NOT INSURANCE.] albuterol sulfate HFA 90 mcg/actuation aerosol inhaler RxNor m: 9069021 2 Puff(s) INH Q4H as needed for cough 10/01/2013 12/22/2013 Inactive [MAKSIM INGS FOR UNINSURED PATIENTS -- BIN:815708, PCN: ASPROD1, Group: AME08, ID# [id number], Process claim through MedImpact, for questions: . THIS IS NOT INSURANCE.] propranolol 40 mg tablet RxNorm: 871523 1 Tablet(s) PO BID 09/02/19 14 11/29/2013 Inactive [SAVINGS FOR UNINSURED PATIE NTS -- BIN:150282, PCN: ASPROD1, Group: AME08, ID# [id number], Process claim through MedImpact, for questions: . THIS IS NOT INSURANCE.] propranolol 40 mg tablet RxNorm: 397368 1 Tablet(s) PO BID 08/05/19 14 08/31/2013 Inactive [SAVINGS FOR UNINSURED PATIE NTS -- BIN:415512, PCN: ASPROD1, Group: AME08, ID# [id number], Process claim through MedImpact, for questions: . THIS IS NOT INSURANCE.] Toprol XL 50 mg tablet,extended release RxNorm: 615391 1 Tablet (s) PO QHS 07/23/2013 08/03/2013 Inactive Macrobid 100 mg capsule RxNorm: 417714 1 Capsule(s) PO BID 07/04/19 14 07/09/2013 Inactive Toprol XL 50 mg tablet,extended release RxNorm: 637149 1 Tablet (s) PO QHS 05/28/2013 06/26/2013 Inactive ciprofloxacin 500 mg tablet RxNorm: 550525 1 Tablet(s) PO BID 05/2706/02/2013 Inactive Bystolic 5 mg tablet RxNorm: 693189 1 Tablet(s) PO QD 05/27/201305/03 Inactive ropinirole 2 mg tablet RxNorm: 414624 1 Tablet(s) PO QHS 04/22/2013 0 11/09/2013 Inactive Cipro 250 mg tablet RxNorm: 589072 1 Tablet(s) PO BID 04/06/201311/2013 Inactive ropinirole 2 mg tablet RxNorm: 125587 1 Tablet(s) PO QHS 02/17/2013 0 04/21/2013 Inactive Amaryl 2 mg tablet RxNorm: 691473 1 Tablet(s) PO QAM 11/11/201211/10 Inactive Amaryl 2 mg tablet RxNorm: 637531 1 Tablet(s) PO QAM 11/11/201204/05 Inactive omeprazole 40 mg capsule,delayed release RxNorm: 574001 1 Capsu le(s) PO BID 08/14/2012 08/08/2013 Inactive Bystolic 5 mg tablet RxNorm: 051065 1 Tablet(s) PO QD 08/14/201205/03 Inactive propranolol 60 mg tablet RxNorm: 178511 Tablet(s) PO TAKE 1 TAB LET TWICE DAILY 08/01/2012 09/01/2012 Inactive Bystolic 5 mg tablet RxNorm: 338112 1 Tablet(s) PO QD 07/21/201207/02 Inactive Bystolic 5 mg tablet RxNorm: 638751 1 Tablet(s) PO QD 07/21/201207/03 Inactive Prilosec 40 mg capsule,delayed release RxNorm: 681093 1 Capsule (s) PO BID 06/24/2012 07/21/2012 Inactive buspirone 10 mg tablet RxNorm: 527404 1 Tablet(s) PO TID 05/08/2012 0 05/23/2016 Inactive Valium 10 mg tablet RxNorm: 832863 1 Tablet(s) PO BID 04/02/201207/03 Inactive Endocet 10 mg-325 mg tablet RxNorm: 0326134 1 Tablet(s) PO QID 03/0607/21/2012 Inactive as needed for severe pain Valium 10 mg tablet RxNorm: 425837 1 Tablet(s) PO BID 02/27/2012 No S top Date Active Endocet 10 mg-325 mg tablet RxNorm: 8995490 1 Tablet(s) PO QID 02/0203/27/2012 Inactive as needed for severe pain Endocet 10 mg-325 mg tablet RxNorm: 7039701 1 Tablet(s) PO QID 01/0302/26/2012 Inactive as needed for severe pain Valium 10 mg tablet RxNorm: 254940 1 Tablet(s) PO BID 01/29/2012 No S top Date Active Protonix 40 mg tablet,delayed release RxNorm: 207029 1 Tablet(s ) PO QD 01/28/2012 07/21/2012 Inactive metformin ER 500 mg tablet,extended release 24 hr RxNorm: 86 0977 1 Tablet(s) PO QD 12/26/2011 07/20/2012 Inactive Trazadone 150 mg Tablet RxNorm: 1 Tablet(s) PO QHS prn sleep 1 04/23/2012 Inactive Endocet 10 mg-325 mg tablet RxNorm: 2169422 1 Tablet(s) PO QID 12/0301/24/2012 Inactive as needed for severe pain Nexium 40 mg capsule,delayed release RxNorm: 007205 1 Capsule(s ) PO QD 12/26/2011 01/27/2012 Inactive Symbicort 160 mcg-4.5 mcg/actuation HFA Aerosol Inhaler RxNo rm: 9385089 2 Puff(s) INH BID 12/04/2011 07/21/2012 Inactive Endocet 10 mg-325 mg tablet RxNorm: 8571333 1 Tablet(s) PO QID 11/0312/25/2011 Inactive as needed for severe pain metformin ER 500 mg tablet,extended release 24 hr RxNorm: 86 0977 1 Tablet(s) PO QD 11/20/2011 12/19/2011 Inactive metformin ER 500 mg tablet,extended release 24 hr RxNorm: 86 0977 1 Tablet(s) PO QD 11/20/2011 11/19/2011 Inactive amitriptyline 100 mg tablet RxNorm: 845868 Tablet(s) PO QHS 1 a nd 1/2 tabs QHS 11/12/2011 11/13/2011 Inactive Valium 10 mg tablet RxNorm: 894031 1 Tablet(s) PO BID 11/09/2011 No S top Date Active Endocet 10 mg-325 mg tablet RxNorm: 2427472 1 Tablet(s) PO QID 10/0211/14/2011 Inactive as needed for severe pain Aricept 10 mg Tab RxNorm: 130816 1 Tablet(s) PO QD 10/05/2011 013 Inactive Valium 10 mg tablet RxNorm: 395888 1 Tablet(s) PO BID 10/05/2011 No S top Date Active Endocet 10 mg-325 mg Tab RxNorm: 4620131 1 Tablet(s) PO QID 012 10/09/2011 Inactive as needed for severe pain Aricept 10 mg Tab RxNorm: 672056 1 Tablet(s) PO QD 08/14/2011 012 Inactive Endocet 10 mg-325 mg Tab RxNorm: 1575470 1 Tablet(s) PO QID 012 08/31/2011 Inactive as needed for severe pain Valium 10 mg Tab RxNorm: 041372 1 Tablet(s) PO BID 08/02/2011 No Stop Date Active propranolol 60 mg tablet RxNorm: 994617 1 Tablet(s) PO BID 07/26/19 12 09/11/2011 Inactive amitriptyline 100 mg tablet RxNorm: 489355 Tablet(s) PO QHS 1 a nd / tabs QHS 06/20/2011 09/11/2011 Inactive buspirone 10 mg tablet RxNorm: 745648 1 Tablet(s) PO BID 06/18/2011 0 09/15/2011 Inactive propranolol 60 mg Tab RxNorm: 062305 1 Tablet(s) PO BID 06/18/2011 Inactive gabapentin 800 mg Tab RxNorm: 480345 1 Tablet(s) PO BID 06/18/2011 Inactive ropinirole 2 mg tablet RxNorm: 511827 1 Tablet(s) PO QHS 05/29/2011 0 08/26/2011 Inactive trimethoprim 100 mg Tab RxNorm: 003346 1 Tablet(s) PO QHS 05/29/2011 07/21/2012 Inactive Endocet 10 mg-325 mg Tab RxNorm: 8080488 1 Tablet(s) PO QID 012 2011 Inactive as needed for severe pain Valium 10 mg Tab RxNorm: 208103 1 Tablet(s) PO QHS N eed to take med as prescribed. this is a 40 day RX. No early fills. 05/17/2011 05/20/2018 Inactive propranolol 60 mg Tab RxNorm: 386494 1 Tablet(s) PO BID 04/16/2011 Inactive Neurontin 800 mg Tab RxNorm: 931172 1 Tablet(s) PO QHS 04/05/201103/2011 Inactive Endocet 10 mg-325 mg Tab RxNorm: 8435051 1 Tablet(s) PO QID 012 05/02/2011 Inactive as needed for severe pain oxycodone-acetaminophen 10 mg-325 mg tablet RxNorm: 2917810 1 Ta blet(s) PO Q4H 03/28/2011 05/19/2012 Inactive Valium 10 mg Tab RxNorm: 474788 1 Tablet(s) PO QHS 03/28/2011 012 Inactive buspirone 10 mg Tab RxNorm: 168164 1 Tablet(s) PO BID 03/27/201106/02 Inactive propranolol 60 mg Tab RxNorm: 194155 1 Tablet(s) PO BID 03/19/2011 Inactive Klor-Con M20 20 mEq Tab RxNorm: 7419810 1 Tablet(s) PO QD 03/19/2011 07/21/2012 Inactive Aricept 10 mg Tab RxNorm: 618735 1 Tablet(s) PO QD 02/27/2011 012 Inactive propranolol 60 mg Tab RxNorm: 284107 1 Tablet(s) PO BID 02/19/2011 Inactive omeprazole 40 mg capsule,delayed release RxNorm: 856800 1 Capsu le(s) PO BID 01/24/2011 05/23/2011 Inactive clindamycin 300 mg capsule RxNorm: 019196 1 Capsule(s) PO TID 01/2402/02/2011 Inactive propranolol 60 mg Tab RxNorm: 998013 1 Tablet(s) PO BID 01/22/2011 No Stop Date Active nystatin 100,000 unit/g Topical Cream RxNorm: 079723 Applicatio n TOP BID 01/15/2011 01/14/2011 Inactive to rash for 2-4 week s Diflucan 200 mg Tab RxNorm: 046865 1 Tablet(s) PO QD 01/15/201101/28 Inactive buspirone 10 mg Tab RxNorm: 349033 1 Tablet(s) PO BID 01/08/201103/05 Inactive Valium 10 mg Tab RxNorm: 651893 1 Tablet(s) PO QHS 01/05/2011 012 Inactive Diflucan 200 mg Tab RxNorm: 388568 1 Tablet(s) PO QD 01/01/201101/14 Inactive Diflucan 200 mg Tab RxNorm: 482512 1 Tablet(s) PO QD 12/18/201012/31 Inactive Valium 10 mg Tab RxNorm: 722386 1 Tablet(s) PO QHS 12/12/2010 011 Inactive Diflucan 200 mg Tab RxNorm: 882959 1 Tablet(s) PO QD 12/07/201012/18 Inactive Aricept 10 mg Tab RxNorm: 180418 1 Tablet(s) PO QD 11/20/2010 011 Inactive ropinirole 1 mg Tab RxNorm: 765140 1 Tablet(s) PO QHS 11/16/201005/03 Inactive enalapril maleate 5 mg Tab RxNorm: 077921 1 Tablet(s) PO QD 011 05/20/2018 Inactive buspirone 10 mg Tab RxNorm: 605344 1 Tablet(s) PO BID 11/16/201012/02 Inactive Valium 10 mg Tab RxNorm: 094932 1 Tablet(s) PO QHS 11/07/2010 011 Inactive Pyridium 100 mg Tab RxNorm: 0523771 1 Tablet(s) PO TID 11/02/201004/2010 Inactive Macrobid 100 mg Cap RxNorm: 2771716 1 Capsule(s) PO BID 11/02/2010 Inactive buspirone 10 mg Tab RxNorm: 023770 1 Tablet(s) PO QHS 10/18/201005/02 Inactive propranolol 60 mg Tab RxNorm: 497823 1 Tablet(s) PO BID 09/18/2010 Inactive Valium 10 mg Tab RxNorm: 082866 1 Tablet(s) PO QHS 09/05/2010 011 Inactive Aricept 10 mg Tab RxNorm: 039074 1 Tablet(s) PO QD 08/14/2010 011 Inactive Valium 10 mg Tab RxNorm: 644595 1 Tablet(s) PO QHS 06/26/2010 011 Inactive ropinirole 1 mg Tab RxNorm: 805628 1 Tablet(s) PO QHS 06/19/201010/02 Inactive omeprazole 40 mg Cap, delayed release RxNorm: 350885 1 Capsule( s) PO QD 06/07/2010 10/04/2010 Inactive Endocet 10 mg-325 mg Tab RxNorm: 3139321 1 Tablet(s) PO QID as needed for severe pain 06/07/2010 03/07/2011 Inactive Endocet 10 mg-325 mg Tab RxNorm: 6820234 1 Tablet(s) PO QID as needed for severe pain 05/04/2010 06/02/2010 Inactive Valium 10 mg Tab RxNorm: 019513 1 Tablet(s) PO QHS 05/01/2010 011 Inactive propranolol 60 mg Tab RxNorm: 453134 1 Tablet(s) PO BID 04/03/2010 Inactive Valium 10 mg Tab RxNorm: 314934 1 Tablet(s) PO QHS 03/28/2010 011 Inactive omeprazole 40 mg Cap, Delayed Release RxNorm: 106048 1 Capsule( s) PO QD 03/28/2010 06/06/2010 Inactive Endocet 10 mg-325 mg Tab RxNorm: 8311122 1 Tablet(s) PO QID prn ari n 03/27/2010 05/20/2018 Inactive Valium 10 mg Tab RxNorm: 894073 1 Tablet(s) PO QHS 02/20/2010 011 Inactive Diflucan 100 mg Tab RxNorm: 427576 1 Tablet(s) PO BID 01/23/201003/2009 Inactive Diflucan 100 mg Tab RxNorm: 842534 1 Tablet(s) PO BID 01/05/201001/02 Inactive Aricept 10 mg Tab RxNorm: 256006 1 Tablet(s) PO QD 12/01/2009 011 Inactive OxyContin 20 mg 12 hr Tab RxNorm: 3488448 1 Tablet(s) PO BID 200904/05/2010 Inactive oxycodone-acetaminophen 10 mg-325 mg Tab RxNorm: 9582840 1 Table t(s) PO Q4H 11/22/2009 11/26/2009 Inactive Phenergan 25 mg Tab RxNorm: 304598 1 Tablet(s) PO PRN MIGRAINE 11/0303/07/2011 Inactive Demerol 100 mg Tab RxNorm: 420514 1 Tablet(s) PO PRN MIGRAINE 11/2203/07/2011 Inactive Oxycodone-Acetaminophen 10 mg-325 mg Tab RxNorm: 9915741 1 Table t(s) PO Q4H 10/11/2009 10/15/2009 Inactive Percocet 10 mg-325 mg Tab RxNorm: 1691045 1 Tablet(s) PO Q4H 200910/24/2009 Inactive propranolol 60 mg Tab RxNorm: 114449 1 Tablet(s) PO BID 08/29/2009 Inactive Valium 10 mg Tab RxNorm: 415747 1 Tablet(s) PO QHS 08/16/2009 010 Inactive Keflex 500 mg Cap RxNorm: 411310 1 Capsule(s) PO BID 07/25/200907/31 Inactive Hydroxyzine 25 mg Tab RxNorm: 470868 1 Tablet(s) PO TID 07/25/2009 Inactive Prednisone 20 mg Tab RxNorm: 825902 1 Tablet(s) PO BID 07/25/2009 Inactive Demerol 100 mg Tab RxNorm: 978994 1 Tablet(s) PO PRN MIGRAINE 07/25 No Stop Date Active Ropinirole 1 mg Tab RxNorm: 972551 1 Tablet(s) PO HS 07/20/200902/14 Inactive Valium 10 mg Tab RxNorm: 625301 1 Tablet(s) PO QHS 07/18/2009 010 Inactive Endocet 10 mg-325 mg Tab RxNorm: 0086596 1 Tablet(s) PO TID 010 07/07/2009 Inactive Demerol 100 mg Tab RxNorm: 434945 1 Tablet(s) PO PRN MIGRAINE 06/08 No Stop Date Active Ropinirole 1 mg Tab RxNorm: 018451 1 Tablet(s) PO HS 05/16/200907/14 Inactive ipratropium-albuterol 0.5 mg-3 mg(2.5 mg base)/3 mL ne bulization soln RxNorm: 4621494 1 Unit Dose INH Q4H as needed No Start Date Active MagOx 400 mg (241.3 mg magnesium) tablet RxNorm: 869841 1 Table t(s) PO BID No Start Date Active Vitamin B12 1000mcg Tablet RxNorm: 1 Tablet(s) PO QD No Start Date Active Vitamin D3 5,000 unit tablet RxNorm: 612309 1 Tablet(s) PO QD No Star t Date Active Tylenol Arthritis Pain 650 mg tablet,extended release RxNorm : 1226327 1 Tablet(s) PO Q4H No Start Date Active Lotrimin AF 2 % topical powder RxNorm: 098274 1 Application TOP BID No Start Date Active enalapril maleate 5 mg Tab RxNorm: 837554 1 Tablet(s) PO QD No Star t Date 07/20/2012 Inactive Demerol 100 mg Tab RxNorm: 268878 Tablet(s) PO PRN MIGRAINE No Star t Date 06/02/2009 Inactive metformin 500 mg tablet RxNorm: 895339 1 Tablet(s) PO QD No Start D ate 04/05/2013 Inactive Breo Ellipta 100 mcg-25 mcg/dose powder for inhalation RxNor m: 9448849 1 Puff(s) INH BID No Start Date 01/04/2016 Inactive Mag-Oxide 400 mg Tab RxNorm: 289320 1 Tablet(s) PO QD No Start Date 0 07/21/2012 Inactive Cipro 500 mg Tab RxNorm: 751420 1 Tablet(s) PO QD No Start Date 04/05 Inactive Ativan 0.5 mg tablet RxNorm: 898756 1 Tablet(s) PO TID as needed No Start Date 05/06/2019 Inactive melatonin 3 mg tablet RxNorm: 770316 2 Tablet(s) PO QHS No Start Da te 08/19/2018 Inactive buspirone 10 mg Tab RxNorm: 144108 1 Tablet(s) PO QD No Start Date Inactive sucralfate 100 mg/mL Oral Susp RxNorm: 075250 2 Teaspoon(s) PO QID No Start Date 07/21/2012 Inactive hydrocodone 5 mg-acetaminophen 325 mg tablet RxNorm: 682846 1 Tablet(s) PO Q4H as needed No Start Date 08/19/2018 Inactive Amaryl 2 mg tablet RxNorm: 488373 1 Tablet(s) PO BID No Start Date Inactive OxyContin 20 mg 12 hr Tab RxNorm: 8266280 1 Tablet(s) PO BID No Sta rt Date 11/27/2009 Inactive propranolol 40 mg tablet RxNorm: 931526 1 Tablet(s) PO QID No Start Date 01/19/2018 Inactive Trazadone 150 mg Tablet RxNorm: 1-2 Tablet(s) PO QHS prn sleep No Start Date 08/09/2010 Inactive propranolol 60 mg Tab RxNorm: 556686 1/2 Tablet(s) PO BID No Start Date 01/21/2011 Inactive insulin NPH and regular human subcutaneous RxNorm: 5016692 subcu taneous No Start Date 11/20/2018 Inactive Ativan 0.5 mg tablet RxNorm: 478266 1 Tablet(s) PO QID No Start Date 06/18/2016 Inactive Vasotec 5 mg Tab RxNorm: 162189 1 Tablet(s) PO BID No Start Date 06/2011 Inactive Toprol XL 50 mg tablet,extended release RxNorm: 890085 1 Tablet (s) PO BID No Start Date 04/05/2013 Inactive Ativan 0.5 mg tablet RxNorm: 112487 1 Tablet(s) PO TID No Start Date 05/25/2016 Inactive Klor-Con M20 20 mEq Tab RxNorm: 2492235 1 Tablet(s) PO QD No Start Date 03/19/2011 Inactive sumatriptan 100 mg tablet RxNorm: 428306 1 Tablet(s) PO at headache onset--repeat in 2hrs if remains No Start Date 07/21/2012 Inactive propranolol 60 mg Tab RxNorm: 158638 1 Tablet(s) PO BID No Start Da te 08/28/2009 Inactive Cholestyramine Light 4 gram Oral Powder RxNorm: 8087722 1 Unit Dose PO QD in water No Start Date 07/21/2012 Inactive nystatin 100,000 unit/g Topical Powder RxNorm: 382030 Applicati on TOP BID No Start Date 07/21/2012 Inactive vitamin P81-qkvhr acid sublingual RxNorm: sublingual No Start Date 07/05/2013 Inactive cyclobenzaprine 5 mg tablet RxNorm: 049063 1/2-1 Tablet (s) PO TID as needed for muscle spasm No Start Date 07/18/2017 Inactive tramadol 50 mg tablet RxNorm: 535180 2 Tablet(s) PO TID as need ed for pain No Start Date 09/01/2014 Inactive aspirin 81 mg Tab RxNorm: 492693 1 Tablet(s) PO QOD No Start Date 04/2013 Inactive Vitamin B12 1000mcg Tablet RxNorm: 1 Tablet(s) PO QD No Start Date 07/18/2017 Inactive cholestyramine (with sugar) 4 gram oral powder RxNorm: 45377 3 1 Unit(s) PO QD as needed No Start Date 05/20/2018 Inactive ProAir HFA 90 mcg/Actuation Aerosol Inhaler RxNorm: 511480 2 Puff(s) INH Q4H prn shortness of breath No Start Date 07/21/2012 Inactive pravastatin 10 mg Tab RxNorm: 549950 1 Tablet(s) PO QD No Start Date 07/21/2012 Inactive gabapentin 800 mg Tab RxNorm: 426537 1 Tablet(s) PO BID No Start Da te 06/03/2011 Inactive Endocet 10 mg-325 mg Tab RxNorm: 3930088 1 Tablet(s) PO TID No Star t Date 06/02/2009 Inactive Naproxen 500 mg Tab RxNorm: 103654 1 Tablet(s) PO BID No Start Date 0 04/05/2010 Inactive Valium 10 mg Tab RxNorm: 480715 1 Tablet(s) PO BID No Start Date 07/04 Inactive enalapril maleate 5 mg Tab RxNorm: 756844 1 Tablet(s) PO QD No Star t Date 11/15/2010 Inactive doxepin 10 mg capsule RxNorm: 6149511 2 Capsule(s) PO QHS No Start Date 09/17/2018 Inactive MS Contin 15 mg Tab RxNorm: 496095 1 Tablet(s) PO BID No Start Date 0 09/18/2010 Inactive buspirone 5 mg tablet RxNorm: 753411 1 Tablet(s) PO TID No Start Da te 12/01/2013 Inactive [place] 3 Fish Oil Cap RxNorm: 1 Capsule(s) PO QD No Start Date 07/03 Inactive enalapril maleate 5 mg Tab RxNorm: 326930 1/2 Tablet(s) PO QD No St art Date 03/07/2011 Inactive Lyrica 75 mg capsule RxNorm: 530644 1 Capsule(s) PO QHS No Start Da te 02/08/2014 Inactive Lopressor 100 mg tablet RxNorm: 003696 1 Tablet(s) PO BID No Start Date 06/08/2018 Inactive Lantus Solostar U-100 Insulin 100 unit/mL (3 mL) subcu taneous pen RxNorm: 549520 45 Unit(s) SQ QAM No Start Date 05/20/2018 Inactive aspirin 81 mg tablet RxNorm: 499362 1 Tablet(s) PO QD No Start Date 0 09/14/2015 Inactive diltiazem CD 240 mg capsule,extended release 24 hr RxNorm: 8 58734 1 Capsule(s) PO QD No Start Date 05/25/2019 Inactive insulin NPH isophane U-100 human subcutaneous RxNorm: 857768 beckwith bcutaneous No Start Date 04/20/2019 Inactive sumatriptan 100 mg tablet RxNorm: 837607 1 Tablet(s) PO at headache onset. May repeat 1 in two hours if headache remains. Max of 2 per 24 hours No Start Date 04/01/2018 Inactive gabapentin 300 mg capsule RxNorm: 259385 1 Capsule(s) PO QHS No Sta rt Date 02/04/2018 Inactive Topamax 25 mg Tab RxNorm: 806579 Oral No Start Date 03/07/2011 In active Senokot-S 8.6 mg-50 mg Tab RxNorm: 5431876 1 Tablet(s) PO QD No Sta rt Date 03/07/2011 Inactive metformin ER 500 mg 24 hr tablet,extended release RxNorm: 18 36617 1 Tablet(s) PO QD No Start Date 05/20/2018 Inactive Symbicort 80 mcg-4.5 mcg/actuation HFA Aerosol Inhaler RxNor m: 9565502 2 Puff(s) INH BID No Start Date 04/05/2013 Inactive metoprolol tartrate 25 mg tablet RxNorm: 678440 1 Tablet(s) PO BID No Start Date 05/20/2019 Inactive propranolol 60 mg Tab RxNorm: 680304 1/2 Tablet(s) PO BID No Start Date 07/21/2012 Inactive metformin ER 500 mg 24 hr tablet,extended release RxNorm: 18 86541 2 Tablet(s) PO QD No Start Date 12/16/2017 Inactive Insulin Syringe 1 mL 29 gauge x 1/2" RxNorm: 2 s yringes daily with insulin Dx: E11.65 No Start Date 10/07/2018 Inactive Amitriptyline 75 mg Tab RxNorm: 930935 1 Tablet(s) PO QHS No Start Date 10/23/2009 Inactive donepezil 10 mg Tab RxNorm: 222059 1 Tablet(s) PO QD No Start Date Inactive Lantus Solostar U-100 Insulin 100 unit/mL (3 mL) subcu taneous pen RxNorm: 182963 36 Unit(s) SQ QAM No Start Date 12/24/2017 Inactive Miacalcin 200 unit/Actuation Nasal [place] Aerosol RxNorm: 261 204 1 [place] NASAL QD Alternate nostrils each day No Start Date 04/05/2010 Inactive Amitriptyline 150 mg Tab RxNorm: 685864 1 Tablet(s) PO QHS No Start Date 01/04/2010 Inactive Bystolic 5 mg tablet RxNorm: 081781 1 Tablet(s) PO QD No Start Date 0 08/13/2012 Inactive Aricept 10 mg Tab RxNorm: 049492 1 Tablet(s) PO QD No Start Date 11/03 Inactive Lantus Solostar U-100 Insulin 100 unit/mL (3 mL) subcu taneous pen RxNorm: 537637 50 Unit(s) SQ QAM No Start Date 08/27/2018 Inactive albuterol sulfate 2.5 mg/3 mL (0.083 %) Neb Solution RxNorm: 843746 1 Unit Dose INH QID as needed No Start Date 08/23/2015 Inactive Symbicort 160 mcg-4.5 mcg/actuation HFA Aerosol Inhaler RxNo rm: 3583948 2 Puff(s) INH BID No Start Date 12/03/2011 Inactive Savella 50 mg Tab RxNorm: 768762 1 Tablet(s) PO BID No Start Date 04/2010 Inactive amitriptyline 100 mg Tab RxNorm: 737342 1 1/2 Tablet(s) PO QHS No S tart Date 06/19/2011 Inactive nystatin 100,000 unit/g Topical Cream RxNorm: 653393 Ap plication TOP BID to rash for 2-4 weeks No Start Date 01/14/2011 Inactive Trelegy Ellipta 100 mcg-62.5 mcg-25 mcg powder for inhalatio n RxNorm: 9926102 1 Puff(s) INH QD No Start Date 12/16/2017 Inactive Lyrica 150 mg capsule RxNorm: 403241 1 Capsule(s) PO QHS No Start D ate 12/04/2015 Inactive sennosides 8.6 mg tablet RxNorm: 638731 1 Tablet(s) PO BID No Start Date 09/07/2018 Inactive metformin ER 500 mg tablet,extended release 24 hr RxNorm: 86 0975 1 Tablet(s) PO QD No Start Date 10/22/2017 Inactive Fish Oil 1,000 mg Cap RxNorm: 1 Capsule(s) PO QD No Start Date 06/2011 Inactive Zyrtec 10 mg Tab RxNorm: 8961692 1 Tablet(s) PO QD No Start Date 07/03 Inactive albuterol sulfate HFA 90 mcg/actuation aerosol inhaler RxNor m: 0760054 2 Puff(s) INH Q4H as needed for cough No Start Date 09/30/2013 Inactive trazodone 150 mg tablet RxNorm: 730084 1 Tablet(s) PO QHS No Start Date 07/21/2012 Inactive Spiriva with HandiHaler 18 mcg & inhalation capsules RxNorm: 645976 1 Capsule(s) INH QD No Start Date 04/05/2013 Inactive Coreg 3.125 mg Tab RxNorm: 993774 1 Tablet(s) PO BID No Start Date Inactive Phenergan 25 mg Tab RxNorm: 156221 Tablet(s) PO PRN MIGRAINE No Sta rt Date 11/21/2009 Inactive Vitamin D 50,000 unit Cap RxNorm: 3902641 1 Capsule(s) PO QW No Sta rt Date 03/07/2011 Inactive Januvia 100 mg tablet RxNorm: 729496 1 Tablet(s) PO QD No Start Date 10/25/2015 Inactive Eliquis 5 mg tablet RxNorm: 7462257 1 Tablet(s) PO BID No Start Date 08/19/2018 Inactive Advair Diskus 500 mcg-50 mcg/Dose for Inhalation RxNorm: 257960 1 INH BID No Start Date 07/21/2012 Inactive Vitamin D3 5,000 unit tablet RxNorm: 296689 1 Tablet(s) PO QD No St art Date 07/18/2017 Inactive Amaryl 2 mg tablet RxNorm: 066243 1 Tablet(s) PO QD No Start Date 06/2015 Inactive Actos 30 mg tablet RxNorm: 273560 1 Tablet(s) PO QD No Start Date Inactive promethazine 25 mg tablet RxNorm: 282265 1 Tablet(s) PO Q4H prn N/V No Start Date 07/21/2012 Inactive ProAir HFA 90 mcg/actuation Aerosol Inhaler RxNorm: 401463 2 Puff(s) INH Q4H prn dyspnea No Start Date 07/21/2012 Inactive Dexilant 60 mg Capsule RxNorm: 081472 1 Capsule(s) PO QD No Start D ate 01/27/2012 Inactive Lantus Solostar U-100 Insulin 100 unit/mL (3 mL) subcu taneous pen RxNorm: 909029 38 Unit(s) SQ QAM No Start Date 05/20/2018 Inactive Valium 10 mg Tab RxNorm: 972001 1 Tablet(s) PO QHS AND PRN No Start Date 10/24/2009 Inactive ZOFRAN ODT 8 mg disintegrating tablet RxNorm: 877755 1 Tablet(s ) PO Q6H No Start [...] Date S ervice Location MICROALBUMIN URINE RANDOM 35946 MICRL MG/L 14.9 MG/L Unknown MICROALBUMIN URINE RANDOM 21448 XM.ALB/CRE 6.1 MG/GCR Unknown MICROALBUMIN URINE RANDOM 95769 CREAT MG/D 243 MG/DL Unknown MICROALBUMIN URINE RANDOM 96005 CRE/100 2.43 G/L 03/05 Unknown PROTEIN/CREAT URINE WITH RATIO 21480|69443 PROT R U 14 MG/D L 04/01/2014 Unknown PROTEIN/CREAT URINE WITH RATIO 84795|99312 CREAT R U 254 MG/ DL 04/01/2014 Unknown PROTEIN/CREAT URINE WITH RATIO 24153|36603 XRATIO P/C 55 MG/ G 04/01/2014 Unknown URINALYSIS 39291 PROTEIN UR NEG 04/28/2010 Unknown URINALYSIS 53832 HEMGLBN UR NEG 04/28/2010 Unknown URINALYSIS 05564 GLUCOSE UR NEG 04/28/2010 Unknown URINALYSIS 73936 KETONES UR NEG 04/28/2010 Unknown URINALYSIS 18179 PH U 5.5 04/28/2010 Unknown URINALYSIS 02716 SP GR U 1.025 04/28/2010 Unknown URINALYSIS 25778 BILRUBN UR NEG 04/28/2010 Unknown URINALYSIS 84118 LEUKO UR 2+ 04/28/2010 Unknown URINALYSIS 84927 NITRITE UR NEG 04/28/2010 Unknown MICR CUL? [id number] WBC/HPF 6-10 04/28/2010 Unknown MICR CUL? [id number] RBC/HPF 0-5 04/28/2010 Unknown MICR CUL? [id number] HYAL CAST 16-25 04/28/2010 Unknown MICR CUL? [id number] SP TO YOLIE? NO 04/28/2010 Unknown MICR CUL? [id number] APPEAR UR NORMAL 04/28/2010 Unknown MICR CUL? [id number] SQ EPI/LPF FEW 04/28/2010 Unknown Procedures Procedure Codes Date URINALYSIS NONAUTO W/O SCOPE CPT-4: 33259 04/16/2019 URINE CULTURE/ COLONY COUNT CPT-4: 97174 04/16/2019 CEFTRIAXONE SODIUM INJECTION CPT-4: J0696 04/16/2019 THER/PROPH/DIAG INJ SC/IM CPT-4: 64349 04/16/2019 DRAIN/INJECT JOINT/BURSA CPT-4: 07439 01/22/2019 TRIAMCINOLONE ACET INJ NOS CPT-4: J3301 01/22/2019 DEXAMETHASONE SODIUM PHOS CPT-4: J1100 01/22/2019 URINE CULTURE/ COLONY COUNT CPT-4: 12785 01/07/2019 URINALYSIS NONAUTO W/O SCOPE CPT-4: 63618 01/07/2019 CEFTRIAXONE SODIUM INJECTION CPT-4: J0696 01/07/2019 THER/PROPH/DIAG INJ SC/IM CPT-4: 40438 01/07/2019 FLU VACC PRSV FREE INC ANTIG 65 AND OLDER CPT-4: 92629 12/24/2018 FLU VACC PRSV FREE INC ANTIG 65 AND OLDER CPT-4: 03493 12/24/2018 ADMIN INFLUENZA VIRUS VAC CPT-4: G0008 12/24/2018 THER/PROPH/DIAG INJ SC/IM CPT-4: 39073 11/04/2018 KETOROLAC TROMETHAMINE INJ CPT-4: J1885 11/04/2018 PROMETHAZINE HCL INJECTION CPT-4: J2550 11/04/2018 PPPS, subseq visit CPT-4: G0439 09/18/2018 THER/PROPH/DIAG INJ SC/IM CPT-4: 49518 04/01/2018 KETOROLAC TROMETHAMINE INJ CPT-4: J1885 04/01/2018 PROMETHAZINE HCL INJECTION CPT-4: J2550 04/01/2018 URINE CULTURE/ COLONY COUNT CPT-4: 27544 03/17/2018 URINALYSIS NONAUTO W/O SCOPE CPT-4: 71961 03/17/2018 FLU VACC PRSV FREE INC ANTIG 65 AND OLDER CPT-4: 05736 12/17/2017 PNEUMOCOCCAL VACC 23 RANDALL IM CPT-4: 47212 12/17/2017 ADMIN INFLUENZA VIRUS VAC CPT-4: G0008 12/17/2017 ADMIN PNEUMOCOCCAL VACCINE CPT-4: G0009 12/17/2017 PPPS, subseq visit CPT-4: G0439 09/17/2017 THER/PROPH/DIAG INJ SC/IM CPT-4: 09878 08/26/2017 KETOROLAC TROMETHAMINE INJ CPT-4: J1885 08/26/2017 PROMETHAZINE HCL INJECTION CPT-4: J2550 08/26/2017 URINALYSIS NONAUTO W/O SCOPE CPT-4: 15522 07/19/2017 URINE CULTURE/ COLONY COUNT CPT-4: 58203 07/19/2017 CEFTRIAXONE SODIUM INJECTION CPT-4: J0696 07/19/2017 THER/PROPH/DIAG INJ SC/IM CPT-4: 94198 07/19/2017 THER/PROPH/DIAG INJ SC/IM CPT-4: 48279 07/19/2017 TRIAMCINOLONE ACET INJ NOS CPT-4: J3301 07/19/2017 PRESCRIP TRANSMIT VIA ERX SY CPT-4: G8553 05/07/2017 PRESCRIP TRANSMIT VIA ERX SY CPT-4: G8553 02/22/2017 PRESCRIP TRANSMIT VIA ERX SY CPT-4: G8553 01/23/2017 FLU VACC PRSV FREE INC ANTIG 65 AND OLDER CPT-4: 13073 12/20/2016 PNEUMOCOCCAL VACC 13 RANDALL IM CPT-4: 72729 12/20/2016 ADMIN INFLUENZA VIRUS VAC CPT-4: G0008 12/20/2016 ADMIN PNEUMOCOCCAL VACCINE CPT-4: G0009 12/20/2016 URINALYSIS NONAUTO W/O SCOPE CPT-4: 97748 10/08/2016 URINE CULTURE/ COLONY COUNT CPT-4: 55793 10/08/2016 PRESCRIP TRANSMIT VIA ERX SY CPT-4: G8553 10/08/2016 PRESCRIP TRANSMIT VIA ERX SY CPT-4: G8553 09/19/2016 PRESCRIP TRANSMIT VIA ERX SY CPT-4: G8553 08/20/2016 PRESCRIP TRANSMIT VIA ERX SY CPT-4: G8553 02/29/2016 KETOROLAC TROMETHAMINE INJ CPT-4: J1885 02/02/2016 THER/PROPH/DIAG INJ SC/IM CPT-4: 91441 02/02/2016 PROMETHAZINE HCL INJECTION CPT-4: J2550 02/02/2016 PRESCRIP TRANSMIT VIA ERX SY CPT-4: G8553 02/02/2016 FLU VACC PRSV FREE INC ANTIG 65 AND OLDER CPT-4: 15479 01/05/2016 PPPS, subseq visit CPT-4: G0439 01/05/2016 ADMIN INFLUENZA VIRUS VAC CPT-4: G0008 01/05/2016 URINE CULTURE/ COLONY COUNT CPT-4: 67192 12/05/2015 URINALYSIS NONAUTO W/O SCOPE CPT-4: 36138 12/05/2015 PRESCRIP TRANSMIT VIA ERX SY CPT-4: G8553 12/05/2015 PRESCRIP TRANSMIT VIA ERX SY CPT-4: G8553 10/26/2015 URINALYSIS NONAUTO W/O SCOPE CPT-4: 49435 10/05/2015 URINE CULTURE/ COLONY COUNT CPT-4: 97464 10/05/2015 PRESCRIP TRANSMIT VIA ERX SY CPT-4: G8553 10/05/2015 SERVICE REQUIRED FOR PMD CPT-4: G0372 09/15/2015 PRESCRIP TRANSMIT VIA ERX SY CPT-4: G8553 09/15/2015 SPECIAL REPORTS OR FORMS CPT-4: 07542 08/25/2015 PRESCRIP TRANSMIT VIA ERX SY CPT-4: G8553 07/05/2015 URINALYSIS NONAUTO W/O SCOPE CPT-4: 93276 03/30/2015 ASSAY, GLUCOSE, BLOOD QUANT CPT-4: 28520 03/30/2015 URINE CULTURE/ COLONY COUNT CPT-4: 71412 03/30/2015 PRESCRIP TRANSMIT VIA ERX SY CPT-4: G8553 03/30/2015 PRESCRIP TRANSMIT VIA ERX SY CPT-4: G8553 02/03/2015 FLU VACC PRSV FREE INC ANTIG 65 AND OLDER CPT-4: 89317 12/29/2014 ADMIN INFLUENZA VIRUS VAC CPT-4: G0008 12/29/2014 PRESCRIP TRANSMIT VIA ERX SY CPT-4: G8553 12/29/2014 PRESCRIP TRANSMIT VIA ERX SY CPT-4: G8553 09/02/2014 PROTEIN/CREAT URINE WITH RATIO CPT-4: 24278|39238 5 MICROALBUMIN QUANTITATIVE CPT-4: 38628 04/01/2014 PRESCRIP TRANSMIT VIA ERX SY CPT-4: G8553 03/16/2014 PRESCRIP TRANSMIT VIA ERX SY CPT-4: G8553 03/09/2014 THER/PROPH/DIAG INJ SC/IM CPT-4: 85156 03/01/2014 TRIAMCINOLONE ACET INJ NOS CPT-4: J3301 03/01/2014 PRESCRIP TRANSMIT VIA ERX SY CPT-4: G8553 02/09/2014 URINE CULTURE/ COLONY COUNT CPT-4: 37289 10/30/2013 URINALYSIS NONAUTO W/O SCOPE CPT-4: 91219 10/21/2013 URINE CULTURE/ COLONY COUNT CPT-4: 33550 10/21/2013 DESTRUCT PREMALG LESION ([employer]) CPT-4: 49407 PRESCRIP TRANSMIT VIA ERX SY CPT-4: G8553 10/05/2013 URINALYSIS NONAUTO W/O SCOPE CPT-4: 10593 08/04/2013 URINE CULTURE/ COLONY COUNT CPT-4: 76763 08/04/2013 PRESCRIP TRANSMIT VIA ERX SY CPT-4: G8553 08/04/2013 THER/PROPH/DIAG INJ SC/IM CPT-4: 79400 07/13/2013 TRIAMCINOLONE ACET INJ NOS CPT-4: J3301 07/13/2013 PRESCRIP TRANSMIT VIA ERX SY CPT-4: G8553 05/27/2013 URINALYSIS NONAUTO W/O SCOPE CPT-4: 13458 05/25/2013 URINE CULTURE/ COLONY COUNT CPT-4: 75762 05/25/2013 THER/PROPH/DIAG INJ SC/IM CPT-4: 04601 05/04/2013 VITAMIN B12 INJECTION CPT-4: J3420 05/04/2013 THER/PROPH/DIAG INJ SC/IM CPT-4: 52040 04/17/2013 VITAMIN B12 INJECTION CPT-4: J3420 04/17/2013 THER/PROPH/DIAG INJ SC/IM CPT-4: 12447 04/17/2013 METHYLPREDNISOLONE 40 MG INJ CPT-4: J1030 04/17/2013 TRIAMCINOLONE ACET INJ NOS CPT-4: J3301 04/17/2013 URINALYSIS NONAUTO W/O SCOPE CPT-4: 01014 04/06/2013 URINE CULTURE/ COLONY COUNT CPT-4: 05182 04/06/2013 PRESCRIP TRANSMIT VIA ERX SY CPT-4: G8553 04/06/2013 KETOROLAC TROMETHAMINE INJ CPT-4: J1885 06/25/2012 PROMETHAZINE HCL INJECTION CPT-4: J2550 06/25/2012 THER/PROPH/DIAG INJ SC/IM CPT-4: 83763 06/25/2012 THER/PROPH/DIAG INJ SC/IM CPT-4: 17300 06/24/2012 METHYLPREDNISOLONE 40 MG INJ CPT-4: J1030 06/24/2012 TRIAMCINOLONE ACET INJ NOS CPT-4: J3301 06/24/2012 URINE CULTURE/ COLONY COUNT CPT-4: 39576 06/24/2012 THER/PROPH/DIAG INJ SC/IM CPT-4: 12315 05/20/2012 KETOROLAC TROMETHAMINE INJ CPT-4: J1885 05/20/2012 THER/PROPH/DIAG INJ SC/IM CPT-4: 55840 05/20/2012 PROMETHAZINE HCL INJECTION CPT-4: J2550 05/20/2012 DRAIN/INJECT JOINT/BURSA CPT-4: 07598 02/13/2012 METHYLPREDNISOLONE 40 MG INJ CPT-4: J1030 02/13/2012 TRIAMCINOLONE ACET INJ NOS CPT-4: J3301 02/13/2012 THER/PROPH/DIAG INJ SC/IM CPT-4: 30790 11/14/2011 METHYLPREDNISOLONE 40 MG INJ CPT-4: J1030 11/14/2011 TRIAMCINOLONE ACET INJ NOS CPT-4: J3301 11/14/2011 THER/PROPH/DIAG INJ SC/IM CPT-4: 25744 09/12/2011 KETOROLAC TROMETHAMINE INJ CPT-4: J1885 09/12/2011 THER/PROPH/DIAG INJ SC/IM CPT-4: 13336 08/09/2011 METHYLPREDNISOLONE 40 MG INJ CPT-4: J1030 08/09/2011 TRIAMCINOLONE ACET INJ NOS CPT-4: J3301 08/09/2011 URINE CULTURE/ COLONY COUNT CPT-4: 20796 07/03/2011 URINE CULTURE/ COLONY COUNT CPT-4: 21754 06/04/2011 THER/PROPH/DIAG INJ SC/IM CPT-4: 07237 05/03/2011 METHYLPREDNISOLONE 40 MG INJ CPT-4: J1030 05/03/2011 TRIAMCINOLONE ACET INJ NOS CPT-4: J3301 05/03/2011 URINALYSIS NONAUTO W/O SCOPE CPT-4: 13426 01/24/2011 URINE CULTURE/ COLONY COUNT CPT-4: 53905 01/24/2011 FLUZONE, 5ML (Medicare) CPT-4: Q2038 01/02/2011 ADMIN INFLUENZA VIRUS VAC CPT-4: G0008 01/02/2011 ASSAY, GLUCOSE, BLOOD QUANT CPT-4: 52414 12/07/2010 URINE CULTURE/ COLONY COUNT CPT-4: 08619 11/02/2010 THER/PROPH/DIAG INJ SC/IM CPT-4: 08627 10/18/2010 METHYLPREDNISOLONE 40 MG INJ CPT-4: J1030 10/18/2010 TRIAMCINOLONE ACET INJ NOS CPT-4: J3301 10/18/2010 TRIAMCINOLONE ACET INJ NOS CPT-4: J3301 05/11/2010 METHYLPREDNISOLONE 40 MG INJ CPT-4: J1030 05/11/2010 THER/PROPH/DIAG INJ SC/IM CPT-4: 92549 05/11/2010 TRIAMCINOLONE ACET INJ NOS CPT-4: J3301 02/09/2010 METHYLPREDNISOLONE 40 MG INJ CPT-4: J1030 02/09/2010 THER/PROPH/DIAG INJ SC/IM CPT-4: 60660 02/09/2010 SERVICE REQUIRED FOR PMD CPT-4: G0372 02/09/2010 FLU VACCINE 3 YRS & > IM UP 64 CPT-4: 22023 0 PNEUMOCOCCAL VACC 23 RANDALL IM CPT-4: 23996 12/07/2009 ADMIN INFLUENZA VIRUS VAC CPT-4: G0008 12/07/2009 ADMIN PNEUMOCOCCAL VACCINE CPT-4: G0009 12/07/2009 TRIAMCINOLONE ACET INJ NOS CPT-4: J3301 05/26/2009 THER/PROPH/DIAG INJ SC/IM CPT-4: 15817 05/26/2009 METHYLPREDNISOLONE 80 MG INJ CPT-4: J1040 [...] 1: 114/72 Code: 8480-6 BMI: 37.8 Code: 89649-0 Heart Rate 1: 72 bpm Height: 5'3" [...] 1: 106/68 Code: 8480-6 BMI: 35.7 Code: 88857-6 Heart Rate 1: 72 bpm Height: 5'4" Respiratory Rate: 20 bpm SpO2: 98% Tempera ture: 36.7 (C) / 98.0 (F) Weight: 208 lbs 04/16/2018 Blood Pressure 1: 132/82 Code: 8480-6 BMI: 37.9 Code: 64527-8 Heart Rate 1: 72 bpm Height: 5'4" Respiratory Rate: 20 bpm SpO2: 96% Tempera ture: 37.1 (C) / 98.8 (F) Weight: 221 lbs 04/01/2018 Blood Pressure 1: 150/90 Code: 8480-6 Heart Rate 1: 72 bpm Respiratory Rate: 22 bpm SpO2: 95% Temperature: 36.4 (C) / 97.6 (F) We ight: 216 lbs 03/06/2018 Blood Pressure 1: 126/78 Code: 8480-6 BMI: 37.4 Code: 39722-3 Heart Rate 1: 68 bpm Height: 5'4" [...] ight: 222 lbs 12/25/2017 BMI: 37.8 Code: 19278-8 Heart Rate 1: 76 bpm Height: 5 '4" Respiratory Rate: 20 bpm SpO2: 96% Temperature: 37.3 (C) / 99.2 (F) Weight: 220 lbs 12/17/2017 Blood Pressure 1: 132/78 Code: 8480-6 BMI: 37.2 Code: 28652-8 Heart Rate 1: 88 bpm Height: 5'4" Respiratory Rate: 20 bpm SpO2: 96% Tempera ture: 37.3 (C) / 99.2 (F) Weight: 217 lbs 10/30/2017 Blood Pressure 1: 114/68 Code: 8480-6 BMI: 36.4 Code: 87252-7 Heart Rate 1: 72 bpm Height: 5'4" Respiratory Rate: 22 bpm SpO2: 96% Tempera ture: 36.8 (C) / 98.2 (F) Weight: 212 lbs 10/23/2017 Blood Pressure 1: 124/78 Code: 8480-6 Heart Rate 1: 72 bpm Respiratory Rate: 24 bpm SpO2: 94% Temperature: 36.6 (C) / 97.9 (F) We ight: 212 lbs 09/17/2017 Blood Pressure 1: 128/82 Code: 8480-6 BMI: 37.4 Code: 92720-6 Heart Rate 1: 72 bpm Height: 5'4" Respiratory Rate: 20 bpm SpO2: 96% Tempera ture: 37.0 (C) / 98.6 (F) Weight: 218 lbs 07/19/2017 Blood Pressure 1: 136/84 Code: 8480-6 BMI: 36.6 Code: 00389-7 Heart Rate 1: 88 bpm Height: 5'4" Respiratory Rate: 20 bpm SpO2: 97% Tempera ture: 36.7 (C) / 98.0 (F) Weight: 213 lbs 05/29/2017 Blood Pressure 1: 136/82 Code: 8480-6 BMI: 36.7 Code: 39274-1 Heart Rate 1: 72 bpm Height: 5'4" Respiratory Rate: 20 bpm SpO2: 97% Tempera ture: 36.9 (C) / 98.4 (F) Weight: 214 lbs 05/07/2017 Blood Pressure 1: 122/80 Code: 8480-6 BMI: 37.1 Code: 14987-6 Heart Rate 1: 80 bpm Height: 5'4" Respiratory Rate: 24 bpm SpO2: 96% Tempera ture: 36.1 (C) / 97.0 (F) Weight: 216 lbs 03/18/2017 BMI: 36.7 Code: 19625-5 Heart Rate 1: 80 bpm Height: 5 '4" Respiratory Rate: 22 bpm SpO2: 95% Temperature: 36.9 (C) / 98.4 (F) Weight: 214 lbs 02/27/2017 Blood Pressure 1: 146/94 Code: 8480-6 BMI: 36.6 Code: 44178-3 Heart Rate 1: 76 bpm Height: 5'4" Respiratory Rate: 22 bpm SpO2: 97% Tempera ture: 36.6 (C) / 97.9 (F) Weight: 213 lbs 02/22/2017 Blood Pressure 1: 126/90 Code: 8480-6 BMI: 36.4 Code: 53160-8 Heart Rate 1: 84 bpm Height: 5'4" Respiratory Rate: 22 bpm SpO2: 95% Tempera ture: 36.9 (C) / 98.4 (F) Weight: 212 lbs 01/23/2017 Blood Pressure 1: 146/82 Code: 8480-6 BMI: 37.6 Code: 16737-4 Heart Rate 1: 96 bpm Height: 5'4" Respiratory Rate: 20 bpm SpO2: 96% Tempera ture: 36.9 (C) / 98.4 (F) Weight: 219 lbs 12/20/2016 Blood Pressure 1: 126/70 Code: 8480-6 BMI: 37.2 Code: 36619-3 Heart Rate 1: 76 bpm Height: 5'4" Respiratory Rate: 22 bpm SpO2: 95% Tempera ture: 36.6 (C) / 97.8 (F) Weight: 217 lbs 10/08/2016 Blood Pressure 1: 128/82 Code: 8480-6 BMI: 36.9 Code: 48724-1 Heart Rate 1: 76 bpm Height: 5'4" Respiratory Rate: 20 bpm SpO2: 95% Tempera ture: 37.0 (C) / 98.6 (F) Weight: 215 lbs 09/19/2016 Blood Pressure 1: 144/78 Code: 8480-6 BMI: 37.8 Code: 47879-4 Heart Rate 1: 76 bpm Height: 5'4" Respiratory Rate: 22 bpm SpO2: 95% Tempera ture: 37.0 (C) / 98.6 (F) Weight: 220 lbs 08/20/2016 Blood Pressure 1: 140/86 Code: 8480-6 BMI: 37.4 Code: 61123-3 Heart Rate 1: 80 bpm Height: 5'4" Respiratory Rate: 20 bpm SpO2: 95% Tempera ture: 36.9 (C) / 98.4 (F) Weight: 218 lbs 06/19/2016 Blood Pressure 1: 124 Code: 8480-6 BMI: 37.8 Code: 18338-1 Heart Rate 1: 74 bpm Height: 5'4" Respiratory Rate: 24 bpm SpO2: 96% Tempera ture: 36.9 (C) / 98.4 (F) Weight: 220 lbs 06/04/2016 Blood Pressure 1: 12478 Code: 8480-6 BMI: 38.8 Code: 60674-5 Heart Rate 1: 72 bpm Height: 5'4" Respiratory Rate: 24 bpm SpO2: 95% Tempera ture: 36.8 (C) / 98.2 (F) Weight: 226 lbs 05/02/2016 Blood Pressure 1: 136/90 Code: 8480-6 BMI: 37.6 Code: 08908-3 Heart Rate 1: 72 bpm Height: 5'4" Respiratory Rate: 24 bpm SpO2: 96% Tempera ture: 36.9 (C) / 98.4 (F) Weight: 219 lbs 04/03/2016 Blood Pressure 1: 126/78 Code: 8480-6 BMI: 38.1 Code: 24591-7 Heart Rate 1: 72 bpm Height: 5'4" Respiratory Rate: 22 bpm SpO2: 94% Tempera ture: 36.9 (C) / 98.4 (F) Weight: 222 lbs 02/29/2016 Blood Pressure 1: 132/78 Code: 8480-6 Heart Rate 1: 78 bpm Height: Respiratory Rate: 24 bpm SpO2: 95% Temperature: 36.4 (C) / 97.6 (F) We ight: 02/02/2016 Blood Pressure 1: 124/78 Code: 8480-6 BMI: 37.6 Code: 20011-8 Heart Rate 1: 76 bpm Height: 5'4" Respiratory Rate: 20 bpm SpO2: 95% Tempera ture: 36.8 (C) / 98.2 (F) Weight: 219 lbs 01/05/2016 Blood Pressure 1: 126/70 Code: 8480-6 BMI: 37.1 Code: 61529-8 Heart Rate 1: 76 bpm Height: 5'4" Respiratory Rate: 20 bpm Temperature: 36 .6 (C) / 97.8 (F) Weight: 216 lbs 12/05/2015 Blood Pressure 1: 126/72 Code: 8480-6 BMI: 36.9 Code: 42661-2 Heart Rate 1: 92 bpm Height: 5'4" Respiratory Rate: 20 bpm Temperature: 36 .7 (C) / 98.1 (F) Weight: 215 lbs 10/26/2015 Blood Pressure 1: 142/80 Code: 8480-6 BMI: 36.4 Code: 38872-8 Heart Rate 1: 82 bpm Height: 5'4" Respiratory Rate: 24 bpm SpO2: 92% Tempera ture: 35.9 (C) / 96.7 (F) Weight: 212 lbs 10/05/2015 Blood Pressure 1: 136/82 Code: 8480-6 Heart Rate 1: 80 bpm Respiratory Rate: 18 bpm SpO2: 98% Temperature: 35.7 (C) / 96.3 (F) We ight: 214 lbs 09/15/2015 Blood Pressure 1: 116/80 Code: 8480-6 BMI: 34.6 Code: 97631-0 Heart Rate 1: 76 bpm Height: 5'6" Respiratory Rate: 20 bpm Temperature: 36 .6 (C) / 97.9 (F) Weight: 211 lbs 08/24/2015 Blood Pressure 1: 124/80 Code: 8480-6 BMI: 34.1 Code: 34701-9 Heart Rate 1: 68 bpm Height: 5'6" Respiratory Rate: 20 bpm Temperature: 36 .8 (C) / 98.3 (F) Weight: 208 lbs 07/05/2015 Blood Pressure 1: 114/78 Code: 8480-6 BMI: 33.9 Code: 91914-7 Heart Rate 1: 80 bpm Height: 5'6" Respiratory Rate: 20 bpm Temperature: 36 .6 (C) / 97.9 (F) Weight: 207 lbs 06/06/2015 Blood Pressure 1: 122/78 Code: 8480-6 BMI: 34.1 Code: 31001-3 Heart Rate 1: 76 bpm Height: 5'6" Respiratory Rate: 24 bpm SpO2: 96% Tempera ture: 36.4 (C) / 97.6 (F) Weight: 208 lbs 05/23/2015 Blood Pressure 1: 124/78 Code: 8480-6 Heart Rate 1: 76 bpm Respiratory Rate: 24 bpm SpO2: 93% Temperature: 36.8 (C) / 98.2 (F) We ight: 212 lbs 05/05/2015 Blood Pressure 1: 136/80 Code: 8480-6 BMI: 35.4 Code: 77702-7 Heart Rate 1: 76 bpm Height: 5'6" Respiratory Rate: 28 bpm Temperature: 37 .0 (C) / 98.6 (F) Weight: 216 lbs 03/30/2015 Blood Pressure 1: 132/86 Code: 8480-6 BMI: 35.2 Code: 46376-7 Heart Rate 1: 84 bpm Height: 5'6" Respiratory Rate: 24 bpm Temperature: 36 .7 (C) / 98.0 (F) Weight: 215 lbs 02/03/2015 Blood Pressure 1: 122/74 Code: 8480-6 BMI: 35.7 Code: 88638-6 Heart Rate 1: 84 bpm Height: 5'6" Respiratory Rate: 20 bpm Temperature: 36 .9 (C) / 98.5 (F) Weight: 218 lbs 12/29/2014 Blood Pressure 1: 132/80 Code: 8480-6 BMI: 35.1 Code: 26412-7 Heart Rate 1: 80 bpm Height: 5'6" Respiratory Rate: 20 bpm Temperature: 36 .6 (C) / 97.8 (F) Weight: 214 lbs 09/02/2014 Blood Pressure 1: 128/92 Code: 8480-6 BMI: 34.7 Code: 41972-6 Heart Rate 1: 84 bpm Height: 5'6" Respiratory Rate: 26 bpm Temperature: 36 .8 (C) / 98.2 (F) Weight: 212 lbs 08/25/2014 Blood Pressure 1: 124/80 Code: 8480-6 BMI: 34.7 Code: 23795-2 Heart Rate 1: 78 bpm Height: 5'6" Respiratory Rate: 22 bpm SpO2: 97% Tempera ture: 36.6 (C) / 97.8 (F) Weight: 212 lbs 04/01/2014 Blood Pressure 1: 142/84 Code: 8480-6 BMI: 34.4 Code: 68086-6 Heart Rate 1: 74 bpm Height: 5'5" Respiratory Rate: 20 bpm Temperature: 36 .4 (C) / 97.6 (F) Weight: 207 lbs 03/16/2014 Blood Pressure 1: 142/90 Code: 8480-6 BMI: 34.6 Code: 85624-2 Heart Rate 1: 76 bpm Height: 5'5" Respiratory Rate: 24 bpm Temperature: 36 .5 (C) / 97.7 (F) Weight: 208 lbs 03/09/2014 Blood Pressure 1: 116/70 Code: 8480-6 BMI: 35.3 Code: 99378-6 Heart Rate 1: 72 bpm Height: 5'5" [...] 1: 128/86 Code: 8480-6 BMI: 34.3 Code: 59360-3 Heart Rate 1: 84 bpm Height: 5'5" Respiratory Rate: 20 bpm Temperature: 36 .7 (C) / 98.0 (F) Weight: 206 lbs 12/23/2013 Blood Pressure 1: 122/70 Code: 8480-6 BMI: 34.3 Code: 53607-4 Heart Rate 1: 68 bpm Height: 5'5" Respiratory Rate: 20 bpm Temperature: 36 .8 (C) / 98.2 (F) Weight: 206 lbs 10/05/2013 Blood Pressure 1: 118/76 Code: 8480-6 BMI: 34.1 Code: 76303-2 Heart Rate 1: 68 bpm Height: 5'5" Respiratory Rate: 20 bpm SpO2: 98% Tempera ture: 36.6 (C) / 97.9 (F) Weight: 205 lbs 08/04/2013 Blood Pressure 1: 126/82 Code: 8480-6 BMI: 33.3 Code: 39620-8 Heart Rate 1: 76 bpm Height: 5'5" Respiratory Rate: 20 bpm Temperature: 36 .8 (C) / 98.2 (F) Weight: 200 lbs 07/03/2013 Blood Pressure 1: 124/82 Code: 8480-6 BMI: 33.3 Code: 36553-1 Heart Rate 1: 72 bpm Height: 5'5" Respiratory Rate: 22 bpm Temperature: 36 .1 (C) / 97.0 (F) Weight: 200 lbs 05/27/2013 Blood Pressure 1: 126/82 Code: 8480-6 Heart Rate 1: 74 bpm Respiratory Rate: 20 bpm Temperature: 36.0 (C) / 96.8 (F) Weight: 199 lbs 04/06/2013 Blood Pressure 1: 118/80 Code: 8480-6 BMI: 35.2 Code: 05885-0 Heart Rate 1: 80 bpm Height: 5'4" Respiratory Rate: 20 bpm Temperature: 37 .4 (C) / 99.3 (F) Weight: 205 lbs 11/10/2012 Blood Pressure 1: 128/82 Code: 8480-6 Heart Rate 1: 84 bpm Respiratory Rate: 20 bpm Temperature: 36.7 (C) / 98.0 (F) Weight: 199 lbs 09/02/2012 Blood Pressure 1: 116/82 Code: 8480-6 BMI: 34.2 Code: 55075-0 Heart Rate 1: 88 bpm Height: 5'4" Respiratory Rate: 22 bpm Temperature: 36 .6 (C) / 97.8 (F) Weight: 199 lbs 08/04/2012 Blood Pressure 1: 128/74 Code: 8480-6 BMI: 34.0 Code: 11989-1 Heart Rate 1: 92 bpm Height: 5'4" Respiratory Rate: 20 bpm Temperature: 36 .4 (C) / 97.5 (F) Weight: 198 lbs 07/21/2012 Blood Pressure 1: 124/86 Code: 8480-6 Heart Rate 1: 116 bpm Respiratory Rate: 24 bpm Temperature: 36.8 (C) / 98.2 (F) 07/02/2012 Blood Pressure 1: 116/88 Code: 8480-6 BMI: 33.6 Code: 44450-0 Heart Rate 1: 76 bpm Height: 5'4" Respiratory Rate: 20 bpm Temperature: 36 .8 (C) / 98.3 (F) Weight: 196 lbs 06/24/2012 Blood Pressure 1: 124/80 Code: 8480-6 BMI: 34.3 Code: 56760-5 Heart Rate 1: 72 bpm Height: 5'4" SpO2: 96% Temperature: 36.3 (C) / 97.3 (F) Weight: 200 lbs 05/20/2012 Blood Pressure 1: 116/88 Code: 8480-6 BMI: 33.8 Code: 86171-3 Heart Rate 1: 80 bpm Height: 5'4" Respiratory Rate: 22 bpm Temperature: 36 .9 (C) / 98.4 (F) Weight: 197 lbs 05/08/2012 Blood Pressure 1: 128/86 Code: 8480-6 BMI: 33.8 Code: 46067-4 Heart Rate 1: 76 bpm Height: 5'4" Respiratory Rate: 26 bpm SpO2: 95% Tempera ture: 36.1 (C) / 97.0 (F) Weight: 197 lbs 04/22/2012 Blood Pressure 1: 106/64 Code: 8480-6 BMI: 33.8 Code: 63356-1 Heart Rate 1: 70 bpm Height: 5'4" Temperature: 36.1 (C) / 97.0 (F) Weight: 197 lbs 02/13/2012 Blood Pressure 1: 126/82 Code: 8480-6 BMI: 34.7 Code: 39429-8 Heart Rate 1: 64 bpm Height: 5'4" Respiratory Rate: 20 bpm Temperature: 36 .6 (C) / 97.8 (F) Weight: 202 lbs 01/28/2012 Blood Pressure 1: 116/80 Code: 8480-6 BMI: 34.7 Code: 78534-0 Heart Rate 1: 76 bpm Height: 5'4" Respiratory Rate: 20 bpm Temperature: 36 .8 (C) / 98.3 (F) Weight: 202 lbs 12/26/2011 Blood Pressure 1: 132/82 Code: 8480-6 BMI: 36.0 Code: 12435-8 Heart Rate 1: 68 bpm Height: 5'4" Respiratory Rate: 22 bpm Temperature: 36 .7 (C) / 98.0 (F) Weight: 210 lbs 11/14/2011 Blood Pressure 1: 124/80 Code: 8480-6 BMI: 36.4 Code: 37787-9 Heart Rate 1: 76 bpm Height: 5'4" Respiratory Rate: 20 bpm Temperature: 36 .8 (C) / 98.2 (F) Weight: 212 lbs 09/12/2011 Blood Pressure 1: 108/74 Code: 8480-6 BMI: 37.1 Code: 11538-5 Heart Rate 1: 72 bpm Height: 5'4" Respiratory Rate: 20 bpm Temperature: 37 .0 (C) / 98.6 (F) Weight: 216 lbs 08/15/2011 Blood Pressure 1: 122/80 Code: 8480-6 BMI: 36.9 Code: 12177-2 Heart Rate 1: 76 bpm Height: 5'4" Respiratory Rate: 20 bpm Temperature: 36 .2 (C) / 97.1 (F) Weight: 215 lbs 08/09/2011 Blood Pressure 1: 112/78 Code: 8480-6 BMI: 36.9 Code: 97991-6 Heart Rate 1: 68 bpm Height: 5'4" Respiratory Rate: 20 bpm Temperature: 36 .7 (C) / 98.0 (F) Weight: 215 lbs 07/03/2011 Blood Pressure 1: 140/94 Code: 8480-6 BMI: 36.2 Code: 14652-3 Heart Rate 1: 68 bpm Height: 5'4" Temperature: 36.0 (C) / 96.8 (F) Weight: 211 lbs 06/04/2011 Blood Pressure 1: 124/70 Code: 8480-6 BMI: 36.7 Code: 12654-9 Heart Rate 1: 68 bpm Height: 5'4" Respiratory Rate: 20 bpm Temperature: 36 .6 (C) / 97.9 (F) Weight: 214 lbs 05/03/2011 Blood Pressure 1: 130/76 Code: 8480-6 BMI: 36.4 Code: 88813-5 Heart Rate 1: 74 bpm Height: 5'5" Temperature: 36.2 (C) / 97.2 (F) Weight: 219 lbs 04/05/2011 Blood Pressure 1: 124/86 Code: 8480-6 BMI: 35.9 Code: 46684-2 Heart Rate 1: 76 bpm Height: 5'6" Respiratory Rate: 22 bpm Temperature: 36 .3 (C) / 97.3 (F) Weight: 219 lbs 03/08/2011 Blood Pressure 1: 112/78 Code: 8480-6 BMI: 35.1 Code: 60305-6 Heart Rate 1: 80 bpm Height: 5'6" Respiratory Rate: 26 bpm Temperature: 36 .9 (C) / 98.4 (F) Weight: 214 lbs 01/24/2011 Blood Pressure 1: 110/82 Code: 8480-6 BMI: 35.6 Code: 52381-6 Heart Rate 1: 80 bpm Height: 5'6" Temperature: 36.1 (C) / 97.0 (F) Weight: 217 lbs 01/02/2011 Blood Pressure 1: 106/72 Code: 8480-6 BMI: 35.6 Code: 85222-9 Heart Rate 1: 76 bpm Height: 5'6" [...] 1: 120/74 Code: 8480-6 BMI: 35.9 Code: 13535-7 Heart Rate 1: 72 bpm Height: 5'5" Temperature: 36.3 (C) / 97.4 (F) Weight: 216 lbs 09/19/2010 Blood Pressure 1: 124/80 Code: 8480-6 BMI: 35.4 Code: 46331-8 Heart Rate 1: 76 bpm Height: 5'5" [...] 1: 122/78 Code: 8480-6 BMI: 37.4 Code: 07976-7 Heart Rate 1: 84 bpm Height: 5'5" [...] 07/24/16 follow up 06/19/2016 1 week hospital [facility] owup follow up 06/04/2016 1mo fwup follow up 05/02/2016 Hospital fwup follow up 04/03/2016 dyspnea 02/29/2016 low grade 99s follow up 02/02/2016 ER fwup diabetes mellitus 01/05/2016 painful urination 12/05/2015 follow up 10/26/2015 ER visit from at [facility] for COPD Exacerbation follow up 10/05/2015 ER Visit gait abnormality 09/15/2015 Patient requesting kelly pineda paperwork to be filled out disturbances of thinking 08/24/2015 follow up 07/05/2015 4wk fwup follow up 06/06/2015 Hospital fw cough 05/23/2015 follow up 05/05/2015 dyspnea 03/30/2015 [facility] needs new orde r for O2 abdominal pain 02/03/2015 cyst 12/29/2014 vs abscess follow up 09/02/2014 [facility] fw headache 08/25/2014 facial drooping follow up [...] 06/24/2012 1mo fwup follow up 05/20/2012 2wk [facility] dyskinesia or tremor 05/08/2012 follow up [...] 04/05/2011 1mo fwup follow up 03/08/2011 2wk [facility] fw dizziness 01/24/2011 frequent falling follow up 01/02/2011 decreased enalapril and propranolol rash 12/07/2010 under breasts/abdome n fold follow up 11/16/2010 1mo fwup follow up 11/02/2010 ER fwup follow up 10/18/[address] Medrano last w [facility], having increased allergy symptoms. Would like steroid [...] 1 month f/u follow up 12/07/2009 from [facility], done with PT--finished about 2wks ago [...] LION (obstructive sleep apnea)[ICD10: G47.33] Pattie Shi [facility] Prosper CPT-4: 21107 08/10/2019 ([id number]) OFFICE/OUTPATIENT VISIT EST Diagnosis: Pelvic pain in female[ICD10: R10.2] Diagnosis: Left leg swelling[ICD10: M79.89] Diagnosis: Dyspnea[ICD10: R06.00] Diagnosis: Constipation[ICD10: K59.00] Pattie BRUNSON S. O RENDER DO [employer] CPT-4: 19443 08/04/2019 ([id number]) OFFICE/OUTPATIENT VISIT EST Diagnosis: Inspiratory stridor[ICD10: R06.1] Diagnosis: Diarrhea[ICD10: R19.7] [facility] CPT-4: 9921 3 07/06/2019 ([id number]) OFFICE/OUTPATIENT VISIT EST Diagnosis: Left leg swelling[ICD10: M79.89] Diagnosis: Dyspnea[ICD10: R06.00] [facility] CPT-4: 9921 3 06/24/2019 ([id number]) OFFICE/OUTPATIENT VISIT EST Diagnosis: Acute bronchitis[ICD10: J20.9] Diagnosis: Colitis[ICD10: K52.9] Belia REID [facility] CPT-4: 33726 06/16/2019 ([id number]) OFFICE/OUTPATIENT VISIT EST Diagnosis: Diarrhea[ICD10: R19.7] Diagnosis: Abdominal bloating[ICD10: R14.0] Belia Reid [facility] CPT- 4: 39031 06/08/2019 ([id number]) OFFICE/OUTPATIENT VISIT EST Diagnosis: Acute febrile illness[ICD10: R50.9] Diagnosis: Colitis[ICD10: K52.9] Belia Reid [facility] CPT-4: 20616 05/26/2019 ([id number]) OFFICE/OUTPATIENT VISIT EST Diagnosis: Chronic obstructive pulmonary disease, unspecified[ICD10: J44.9] Diagnosis: Pulmonary fibrosis[ICD10: J84.10] Diagnosis: Intermittent stridor[ICD10: R06.1] Diagnosis: Muscle weakness[ICD10: M62.81] Belia REID [facility] CPT-4: 32551 05/13/2019 ([id number]) OFFICE/OUTPATIENT VISIT EST Diagnosis: Stridor[ICD10: R06.1] Diagnosis: COUGH[ICD10: R05] Belia REID [facility] CPT-4: 62752 05/06/2019 ([id number]) OFFICE/OUTPATIENT VISIT EST Diagnosis: Stridor[ICD10: R06.1] Diagnosis: Muscle, jerky movements (uncontrolled)[ICD10: G25.5] Belia REID [facility] CPT-4: 59494 04/29/2019 ([id number]) OFFICE/OUTPATIENT VISIT EST Diagnosis: Upper respiratory infection[ICD10: J06.9] Diagnosis: Flank pain[ICD10: R10.9] Diagnosis: Weight gain[ICD10: R63.5] Pattie AMBRIZ [facility] CPT-4: 48976 04/16/2019 ([id number]) OFFICE/OUTPATIENT VISIT EST Diagnosis: Generalized pruritus[ICD10: L29.9] Belia REID Keepy [facility] CPT-4: 98561 04/08/2019 ([id number]) OFFICE/OUTPATIENT VISIT EST Diagnosis: Acute bursitis of left shoulder[ICD10: M75.52] Diagnosis: Cervicalgia[ICD10: M54.2] Diagnosis: Chest wall pain[ICD10: R07.89] eBlia SMITH Keepy [facility] CPT-4: 57496 01/22/2019 ([id number]) OFFICE/OUTPATIENT VISIT EST Diagnosis: Abdominal pain[ICD10: R10.9] Diagnosis: Pyelonephritis[ICD10: N12] Pattie DOMINGUEZ [facility] CPT-4: 11125 01/07/2019 ([id number]) OFFICE/OUTPATIENT VISIT EST Diagnosis: Low back pain[ICD10: M54.5] Diagnosis: Left lumbar radiculopathy[ICD10: M54.16] Diagnosis: Left flank pain[ICD10: R10.9] Diagnosis: Left lower quadrant pain[ICD10: R10.32] Diagnosis: FLU VACCINE[ICD10: Z23] Belia FREDERICK [facility] CPT-4: 60156 12/24/2018 ([id number]) OFFICE/OUTPATIENT VISIT EST Diagnosis: Migraine, unspecified, not intractable, without status migrainosus[ICD10: G43.909] Diagnosis: Fibromyalgia[ICD10: M79.7] Belia DOMINGUEZ Pros[facility] CPT-4: 12805 11/20/2018 ([id number]) OFFICE/OUTPATIENT VISIT EST Diagnosis: Migraine, unspecified, intractable, without status migrainosus[ICD10: G43.919] Diagnosis: Acute sinusitis, unspecified[ICD10: J01.90] Pattie REID Prosper CPT-4: 34844 11/04/2018 ([id number]) OFFICE/OUTPATIENT VISIT EST Diagnosis: Pain in left wrist[ICD10: M25.532] Diagnosis: Other dorsalgia[ICD10: M54.89] Pattie Branjuan REID Keepy [facility] CPT-4: 53753 09/08/2018 ([id number]) OFFICE/OUTPATIENT VISIT EST Diagnosis: Acute stress reaction[ICD10: F43.0] Diagnosis: Pruritus, unspecified[ICD10: L29.9] 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, 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] Belia REID DO [facility] CPT-4: 60864 08/20/2018 ([id number]) OFFICE/OUTPATIENT VISIT EST Diagnosis: Hypotension due to drugs[ICD10: I95.2] Diagnosis: Paroxysmal atrial fibrillation[ICD10: I48.0] Diagnosis: Localized edema[ICD10: R60.0] Belia REID [facility] CPT-4: 34091 06/19/2018 ([id number]) OFFICE/OUTPATIENT VISIT EST Diagnosis: Generalized hyperhidrosis[ICD10: R61] Diagnosis: Essential (primary) hypertension[ICD10: I10] Diagnosis: Supraventricular tachycardia[ICD10: I47.1] Belia REID [facility] CPT-4: 26694 06/09/2018 ([id number]) OFFICE/OUTPATIENT VISIT EST Diagnosis: Stridor[ICD10: R06.1] Diagnosis: Dependence on supplemental oxygen[ICD10: Z99.81] Diagnosis: Weakness[ICD10: R53.1] Diagnosis: Supraventricular tachycardia[ICD10: I47.1] Belia REID [facility] CPT-4: 96248 05/21/2018 ([id number]) OFFICE/OUTPATIENT VISIT EST Diagnosis: Cervical disc disorder with radiculopathy, unspecified cervical region[ICD10: M50.10] Belia REID DO [facility] CPT-4: 34747 04/16/2018 ([id number]) OFFICE/OUTPATIENT VISIT EST Diagnosis: Migraine, unspecified, intractable, without status migrainosus[ICD10: G43.919] Diagnosis: Fibromyalgia[ICD10: M79.7] Pattie DOMINGUEZ Keepy [facility] CPT-4: 78125 04/01/2018 ([id number]) NURSE/OUTPATIENT VISIT EST Diagnosis: Hematuria, unspecified[ICD10: R31.9] Diagnosis: Dysuria[ICD10: R30.0] Belia REID DO [facility] CPT-4: 40466 03/17/2018 ([id number]) OFFICE/OUTPATIENT VISIT EST Diagnosis: Erythema intertrigo[ICD10: L30.4] Diagnosis: Chronic obstructive pulmonary disease with (acute) exacerbation[ICD10: J44.1] Diagnosis: Type 2 diabetes mellitus with hyperglycemia[ICD10: E11.65] Belia REID DO [facility] CPT-4: 41006 03/06/2018 ([id number]) OFFICE/OUTPATIENT VISIT EST Diagnosis: Cervicalgia[ICD10: M54.2] Pattie AMBRIZ DO [facility] CPT-4: 72286 02/05/2018 ([id number]) OFFICE/OUTPATIENT VISIT EST Diagnosis: Candidiasis of skin and nail[ICD10: B37.2] Diagnosis: Cervicalgia[ICD10: M54.2] Pattie AMBRIZ [facility] CPT-4: 79887 01/20/2018 ([id number]) OFFICE/OUTPATIENT VISIT EST Diagnosis: Pain in thoracic spine[ICD10: M54.6] Diagnosis: Radiculopathy, thoracic region[ICD10: M54.14] Belia REID DO [facility] CPT-4: 31303 12/25/2017 ([id number]) OFFICE/OUTPATIENT VISIT EST Diagnosis: Pain in thoracic spine[ICD10: M54.6] Diagnosis: Other muscle spasm[ICD10: M62.838] Diagnosis: FLU VACCINE[ICD10: Z23] Diagnosis: PNEUMOCOCCAL VACCINE[ICD10: Z23] Belia REID DO [facility] CPT-4: 86199 12/17/2017 ([id number]) OFFICE/OUTPATIENT VISIT EST Diagnosis: Chronic obstructive pulmonary disease with (acute) exacerbation[ICD10: J44.1] Belia REID DO [facility] CPT- 4: 62637 10/30/2017 ([id number]) OFFICE/OUTPATIENT VISIT EST Diagnosis: Chronic obstructive pulmonary disease with acute lower respiratory infection[ICD10: J44.0] Diagnosis: Mild intermittent asthma with (acute) exacerbation[ICD10: J45.21] Belia REID DO [facility] CPT-4: 05603 10/23/2017 ([id number]) NURSE/OUTPATIENT VISIT EST Diagnosis: Migraine, unspecified, not intractable, without status migrainosus[ICD10: G43.909] Belia REID DO [facility] CPT - 4: 42518 08/26/2017 ([id number]) OFFICE/OUTPATIENT VISIT EST Diagnosis: Urinary tract infection, site not specified[ICD10: N39.0] Diagnosis: Encounter for screening for osteoporosis[ICD10: Z13.820] Diagnosis: Encounter for screening mammogram for malignant neoplasm of breast[ICD10: Z12.31] Diagnosis: Acute bronchitis, unspecified[ICD10: J20.9] Pattie REID DO [facility] CPT-4: 84231 07/19/2017 ([id number]) OFFICE/OUTPATIENT VISIT EST Diagnosis: Rash and other nonspecific skin eruption[ICD10: R21] Pattie REID DO [facility] CPT-4: 98105 05/29/2017 ([id number]) OFFICE/OUTPATIENT VISIT EST Diagnosis: Diarrhea, unspecified[ICD10: R19.7] Diagnosis: Tinea corporis[ICD10: B35.4] Diagnosis: Tinea cruris[ICD10: B35.6] Diagnosis: Migraine, unspecified, not intractable, without status migrainosus[ICD10: G43.909] Belia REID DO [facility] CPT - 4: 12850 05/07/2017 ([id number]) OFFICE/OUTPATIENT VISIT EST Diagnosis: Stridor[ICD10: R06.1] Diagnosis: Chronic obstructive pulmonary disease with (acute) exacerbation[ICD10: J44.1] Belia REID DO [facility] CPT- 4: 24098 03/18/2017 ([id number]) OFFICE/OUTPATIENT VISIT EST Diagnosis: Type 2 diabetes mellitus with hyperglycemia[ICD10: E11.65] Belia REID DO [facility] CPT-4: 67595 02/27/2017 OFFICE/OUTPATIENT VISIT EST Diagnosis: Type 2 diabetes mellitus with hyperglycemia[ICD10: E11.65] Pattie REID DO [facility] CPT-4: 00118 02/22/2017 ([id number]) OFFICE/OUTPATIENT VISIT EST Diagnosis: Urinary tract infection, site not specified[ICD10: N39.0] Diagnosis: Pneumonia, unspecified organism[ICD10: J18.9] Diagnosis: Type 2 diabetes mellitus with hyperglycemia[ICD10: E11.65] Belia REID [facility] CPT-4: 06282 01/23/2017 ([id number]) OFFICE/OUTPATIENT VISIT EST Diagnosis: Type 2 diabetes mellitus with hyperglycemia[ICD10: E11.65] Diagnosis: Localized edema[ICD10: R60.0] Diagnosis: PNEUMOCOCCAL VACCINE[ICD10: Z23] Diagnosis: FLU VACCINE[ICD10: Z23] Belia FREDERICK [facility] CPT-4: 13141 12/20/2016 OFFICE/OUTPATIENT VISIT EST Diagnosis: Pain in thoracic spine[ICD10: M54.6] Diagnosis: Low back pain[ICD10: M54.5] Diagnosis: Cervicalgia[ICD10: M54.2] Diagnosis: Cough[ICD10: R05] Celeste Ferreira BELIA REID [facility] CPT-4: 13528 10/08/2016 ([id number]) OFFICE/OUTPATIENT VISIT EST Diagnosis: Primary insomnia[ICD10: F51.01] Diagnosis: Migraine, unspecified, not intractable, without status migrainosus[ICD10: G43.909] Diagnosis: Type 2 diabetes mellitus with hyperglycemia[ICD10: E11.65] Belia REID [facility] CPT-4: 16565 09/19/2016 ([id number]) OFFICE/OUTPATIENT VISIT EST Diagnosis: Migraine, unspecified, not intractable, without status migrainosus[ICD10: G43.909] Diagnosis: Generalized abdominal pain[ICD10: R10.84] Diagnosis: Cough[ICD10: R05] Belia Anushka REID [facility] CPT-4: 16412 08/20/2016 ([id number]) OFFICE/OUTPATIENT VISIT EST Diagnosis: Chronic obstructive pulmonary disease, unspecified[ICD10: J44.9] Diagnosis: Stridor[ICD10: R06.1] Belia REID DO [facility] CPT-4: 73371 06/19/2016 ([id number]) OFFICE/OUTPATIENT VISIT EST Diagnosis: Chronic obstructive pulmonary disease, unspecified[ICD10: J44.9] Diagnosis: Personal history of urinary (tract) infections[ICD10: Z87.440] Belia REID DO [facility] CPT-4: 05585 06/04/2016 ([id number]) OFFICE/OUTPATIENT VISIT EST Diagnosis: Stridor[ICD10: R06.1] Diagnosis: Chronic obstructive pulmonary disease with acute lower respiratory infection[ICD10: J44.0] Diagnosis: Other specified diseases of intestine[ICD10: K63.89] Diagnosis: Cystitis, unspecified without hematuria[ICD10: N30.90] Belia REID Keepy [facility] CPT-4: 65953 05/02/2016 ([id number]) OFFICE/OUTPATIENT VISIT EST Diagnosis: Fibromyalgia[ICD10: M79.7] Diagnosis: Urinary tract infection, site not specified[ICD10: N39.0] Belia REID DO [facility] CPT-4: 62012 04/03/2016 ([id number]) OFFICE/OUTPATIENT VISIT EST Diagnosis: Unspecified asthma, uncomplicated[ICD10: J45.909] Diagnosis: Cough[ICD10: R05] Lidia Jaiden REID DO [facility] T-4: 15295 02/29/2016 ([id number]) OFFICE/OUTPATIENT VISIT EST Diagnosis: Migraine, unspecified, intractable, without status migrainosus[ICD10: G43.919] Diagnosis: Urinary tract infection, site not specified[ICD10: N39.0] Belia REID DO [facility] CPT-4: 34517 02/02/2016 ([id number]) OFFICE/OUTPATIENT VISIT EST Diagnosis: Urinary tract infection, site not specified[ICD10: N39.0] Diagnosis: Unspecified abdominal pain[ICD10: R10.9] Diagnosis: Pain in thoracic spine[ICD10: M54.6] Diagnosis: Type 2 diabetes mellitus with diabetic neuropathic arthropathy[ICD10: E11.610] Belia Yandelisabellaannie HSUBELIA BushraMayda ANUSHKA Keepy [facility] CPT-4: 59120 12/05/2015 ([id number]) OFFICE/OUTPATIENT VISIT EST Diagnosis: Chronic obstructive pulmonary disease with (acute) exacerbation[ICD10: J44.1] Diagnosis: Migraine, unspecified, not intractable, without status migrainosus[ICD10: G43.909] Lidia HSUQUELINE BushraMayda ANUSHKA Keepy [facility] CPT -4: 69121 10/26/2015 ([id number]) OFFICE/OUTPATIENT VISIT EST Diagnosis: Hematuria, unspecified[ICD10: R31.9] Diagnosis: Urinary tract infection, site not specified[ICD10: N39.0] Lidia Jaiden BELIA BushraMayda ANUSHKA Keepy [facility] CPT-4: 50031 10/05/2015 OFFICE/OUTPATIENT VISIT EST Diagnosis: Chronic obstructive pulmonary disease, unspecified[ICD10: J44.9] Diagnosis: Muscle weakness (generalized)[ICD10: M62.81] Diagnosis: Polyneuropathy, unspecified[ICD10: G62.9] Diagnosis: Other intervertebral disc degeneration, 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] Diagnosis: Fibromyalgia[ICD10: M79.7] Belia Yandelisabellaannie HSUBELIA Yuridia DOMINGUEZ Keepy [facility] CPT-4: 45627 09/15/2015 ([id number]) OFFICE/OUTPATIENT VISIT EST Diagnosis: Disorientation, unspecified[ICD10: R41.0] Diagnosis: Headache[ICD10: R51] Diagnosis: Paresthesia of skin[ICD10: R20.2] Lidia Paredes BushraMayda ANUSHKA Keepy [facility] CPT-4: 77669 08/24/2015 ([id number]) OFFICE/OUTPATIENT VISIT EST Diagnosis: Type 2 diabetes mellitus with hyperglycemia[ICD10: E11.65] Diagnosis: Chronic obstructive pulmonary disease with acute lower respiratory infection[ICD10: J44.0] Belia BRUNSON BushraMayda ANUSHKA Keepy [facility] CPT-4: 79493 07/05/2015 ([id number]) OFFICE/OUTPATIENT VISIT EST Diagnosis: Mild intermittent asthma with (acute) exacerbation[ICD10: J45.21] Diagnosis: Chronic obstructive pulmonary disease, unspecified[ICD10: J44.9] Belia REID [facility] CPT-4: 28501 06/06/2015 ([id number]) OFFICE/OUTPATIENT VISIT EST Diagnosis: Chronic obstructive pulmonary disease with (acute) exacerbation[ICD10: J44.1] Lidia REID [facility] CPT- 4: 23854 05/23/2015 ([id number]) OFFICE/OUTPATIENT VISIT EST Diagnosis: Type 2 diabetes mellitus with hyperglycemia[ICD10: E11.65] Diagnosis: Functional dyspepsia[ICD10: K30] Belia REID [facility] CPT-4: 52225 05/05/2015 ([id number]) OFFICE/OUTPATIENT VISIT EST Diagnosis: Type 2 diabetes mellitus with hyperglycemia[ICD10: E11.65] Diagnosis: Glycosuria[ICD10: R81] Diagnosis: Urinary tract infection, site not specified[ICD10: N39.0] Belia REID [facility] CPT-4: 49023 03/30/2015 ([id number]) OFFICE/OUTPATIENT VISIT EST Diagnosis: Generalized abdominal pain[ICD10: R10.84] Diagnosis: Diarrhea, unspecified[ICD10: R19.7] Diagnosis: Urinary tract infection, site not specified[ICD10: N39.0] Diagnosis: Gastro-esophageal reflux disease without esophagitis[ICD10: K21.9] Belia REID [facility] CPT-4: 16105 02/03/2015 ([id number]) OFFICE/OUTPATIENT VISIT EST Diagnosis: Other specified noninflammatory disorders of vagina[ICD10: N89.8] Diagnosis: Follicular disorder, unspecified[ICD10: L73.9] Diagnosis: Functional dyspepsia[ICD10: K30] Diagnosis: FLU VACCINE[ICD10: Z23] Belia SMITH [facility] CPT-4: 15816 12/29/2014 ([id number]) OFFICE/OUTPATIENT VISIT EST 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] Diagnosis: RESTLESS LEGS SYNDROME[ICD9: 333.94] Diagnosis: MIGRAINE NOS/NOT INTRCBL[ICD9: 346.90] Belia REID [facility] CPT-4: 27306 09/02/2014 ([id number]) OFFICE/OUTPATIENT VISIT EST Diagnosis: Cervical radiculopathy[ICD9: 723.4] Diagnosis: Cervicalgia[ICD9: 723.1] Diagnosis: Degenerative disc disease, cervical[ICD9: 722.4] 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I[ICD9: 250.00] Belia REID [facility] CPT-4: 22260 04/01/2014 OFFICE/OUTPATIENT VISIT EST Diagnosis: Reactive airway disease[ICD9: 493.90] Belia REID [facility] CPT-4: 82507 03/16/2014 ([id number]) OFFICE/OUTPATIENT VISIT EST Diagnosis: BRONCHITIS, ACUTE[ICD9: 466.0] Diagnosis: Reactive airway disease[ICD9: 493.90] Belia REID Keepy [facility] CPT-4: 29639 03/09/2014 OFFICE/OUTPATIENT VISIT EST Diagnosis: BRONCHITIS, ACUTE[ICD9: 466.0] Diagnosis: WHEEZING[ICD9: 786.07] Huong Peguero Keepy [facility] CPT-4: 28278 03/03/2014 OFFICE/OUTPATIENT VISIT EST Diagnosis: BRONCHITIS, ACUTE[ICD9: 466.0] Diagnosis: WHEEZING[ICD9: 786.07] Huong Peguero Keepy [facility] CPT-4: 83048 03/01/2014 ([id number]) OFFICE/OUTPATIENT VISIT EST Diagnosis: GERD[ICD9: 530.81] Diagnosis: ARTHRALGIA-MULTIPLE SITES[ICD9: 719.49] Diagnosis: LUMB/LUMBOSAC DISC DEGEN[ICD9: 722.52] Diagnosis: - I - FIBROMYALGIA[ICD9: 729.1] Belia REID Keepy [facility] CPT-4: 63767 02/09/2014 ([id number]) OFFICE/OUTPATIENT VISIT EST Diagnosis: Peptic ulcer disease[ICD9: 533.90] Diagnosis: RESTLESS LEGS SYNDROME[ICD9: 333.94] Diagnosis: Neuropathy[ICD9: 355.9] Belia FREDERICK DO [facility] CPT-4: 30577 12/23/2013 ([id number]) OFFICE/OUTPATIENT VISIT EST Diagnosis: URINARY TRACT INFECTION[ICD9: 599.0] Belia REID DO [facility] CPT-4: 96475 10/30/2013 ([id number]) OFFICE/OUTPATIENT VISIT EST Diagnosis: Flank pain[ICD9: 789.00] Belia MARTINEZ [facility] CPT-4: 08928 10/21/2013 ([id number]) OFFICE/OUTPATIENT VISIT EST Diagnosis: INFLAMED SEBORR KERATOS[ICD9: 702.11] Diagnosis: Brachioradial pruritus[ICD9: 698.9] Diagnosis: ASTHMA NOS[ICD9: 493.90] Belia MARTINEZ [facility] CPT-4: 74004 10/05/2013 ([id number]) OFFICE/OUTPATIENT VISIT EST Diagnosis: HYPERTENSION[ICD9: 401.9] Diagnosis: - I - FIBROMYALGIA[ICD9: 729.1] Diagnosis: DIZZINESS/VERTIGO[ICD9: 780.4] Diagnosis: MIGRAINE NOS/NOT INTRCBL[ICD9: 346.90] Diagnosis: Diabetic peripheral neuropathy[ICD9: 250.60] Diagnosis: Flank pain[ICD9: 789.00] Belia MARTINEZ [facility] CPT-4: 83389 08/04/2013 ([id number]) OFFICE/OUTPATIENT VISIT EST Diagnosis: ALLERGIC RHINITIS[ICD9: 477.9] Belia REID DO [facility] CPT-4: 22578 07/13/2013 OFFICE/OUTPATIENT VISIT EST Diagnosis: URINARY TRACT INFECTION[ICD9: 599.0] Huong Osborne KRAIG REID DO [facility] CPT-4: 30363 07/03/2013 OFFICE/OUTPATIENT VISIT EST Diagnosis: HYPERTENSION[ICD9: 401.9] Diagnosis: URINARY TRACT INFECTION[ICD9: 599.0] Diagnosis: BACKACHE[ICD9: 724.5] Diagnosis: URINARY INCONTINENCE[ICD9: 788.30] Huong [place] CORNELLKIMI MARIE Yuridia REID [facility] CPT-4: 21443 05/27/2013 ([id number]) OFFICE/OUTPATIENT VISIT EST Diagnosis: Flank pain[ICD9: 789.00] Belia Yandelkatina BELIA BushraMayda KIESHA POOLE [facility] CPT-4: 38833 05/25/2013 ([id number]) OFFICE/OUTPATIENT VISIT EST Diagnosis: B-COMPLEX DEFIC NEC[ICD9: 266.2] Belia Humphriesisabellaannie CORNELLBELIA Yuridia REID [facility] CPT-4: 74864 05/04/2013 ([id number]) OFFICE/OUTPATIENT VISIT EST Diagnosis: ALLERGIC RHINITIS[ICD9: 477.9] Diagnosis: Vitamin B12 deficiency[ICD9: 266.2] Belia Yandelkatina CORNELLFeliicta DONNA [facility]: 12739 04/17/2013 ([id number]) OFFICE/OUTPATIENT VISIT EST 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I[ICD9: 250.00] Diagnosis: URINARY TRACT INFECTION[ICD9: 599.0] Diagnosis: DIZZINESS/VERTIGO[ICD9: 780.4] Diagnosis: DIARRHEA[ICD9: 787.91] Belializ Reid BELIA BushraMayda RALF Peguero [facility] CPT-4: 16051 04/06/2013 ([id number]) OFFICE/OUTPATIENT VISIT EST Diagnosis: URINARY TRACT INFECTION[ICD9: 599.0] Diagnosis: URINARY RETENTION[ICD9: 788.20] Belia Yandelkatina BELIA BushraMayda ANUSHKA [facility] CPT-4: 77519 11/10/2012 ([id number]) OFFICE/OUTPATIENT VISIT EST Diagnosis: TACHYCARDIA[ICD9: 785.0] Diagnosis: SYNCOPE AND COLLAPSE[ICD9: 780.2] Diagnosis: CONSCIOUSNS ALTERAT NEC[ICD9: 780.09] Belia Yandelkatina CALVO BushraMayda ANUSHKA [facility] CPT-4: 92574 09/02/2012 OFFICE/OUTPATIENT VISIT EST Diagnosis: TACHYCARDIA[ICD9: 785.0] Diagnosis: SYNCOPE AND COLLAPSE[ICD9: 780.2] Belia REID DO [facility] CPT-4: 90099 08/04/2012 ([id number]) OFFICE/OUTPATIENT VISIT EST Diagnosis: Loss of consciousness[ICD9: 780.09] Diagnosis: Tachycardia[ICD9: 785.0] Diagnosis: MALAISE AND FATIGUE[ICD9: 780.79] Belia REID DO [facility] CPT-4: 39962 07/21/2012 ([id number]) OFFICE/OUTPATIENT VISIT EST Diagnosis: BRONCHITIS, ACUTE[ICD9: 466.0] Diagnosis: ASTHMA NOS[ICD9: 493.90] Belia POOLE [facility] CPT-4: 36400 07/02/2012 ([id number]) OFFICE/OUTPATIENT VISIT EST Diagnosis: CEPHALGIA[ICD9: 784.0] Belia Peguero [facility] CPT-4: 27476 06/25/2012 ([id number]) OFFICE/OUTPATIENT VISIT EST Diagnosis: GERD[ICD9: 530.81] Diagnosis: DIARRHEA[ICD9: 787.91] Diagnosis: URINARY TRACT INFECTION[ICD9: 599.0] Diagnosis: ASTHMA NOS[ICD9: 493.90] Diagnosis: ALLERGIC RHINITIS[ICD9: 477.9] Belia REID [facility] CPT-4: 04397 06/24/2012 ([id number]) OFFICE/OUTPATIENT VISIT EST Diagnosis: MIGRAINE NOS/NOT INTRCBL[ICD9: 346.90] Diagnosis: TREMOR NEC[ICD9: 333.1] Diagnosis: CHRONIC PAIN SYNDROME[ICD9: 338.4] Belia BASS MARIE Yuridia REID Keepy [facility] CPT-4: 01330 05/20/2012 ([id number]) OFFICE/OUTPATIENT VISIT EST Diagnosis: DIZZINESS/VERTIGO[ICD9: 780.4] Diagnosis: PALPITATIONS[ICD9: 785.1] Diagnosis: TREMOR NEC[ICD9: 333.1] Diagnosis: ANXIETY STATE NOS[ICD9: 300.00] Diagnosis: POSTTRAUMATIC STRESS DISORDER[ICD9: 309.81] Belia CORNELLLINE Yuridia REID Keepy [facility] CPT-4: 88777 05/08/2012 ([id number]) OFFICE/OUTPATIENT VISIT EST Diagnosis: MIGRAINE NOS/NOT INTRCBL[ICD9: 346.90] Diagnosis: FIBROMYALGIA[ICD9: 729.1] Diagnosis: SYNCOPE AND COLLAPSE[ICD9: 780.2] Diagnosis: Diabetic peripheral neuropathy[ICD9: 250.60] Belia TomlinsonMayda LUIS [facility] CPT-4: 18922 04/22/2012 OFFICE/OUTPATIENT VISIT EST Diagnosis: ROTATOR CUFF DIS NEC[ICD9: 726.19] Diagnosis: JOINT PAIN-SHLDER[ICD9: 719.41] Diagnosis: DYSPEPSIA[ICD9: 536.8] Belia CORNELLLINE BushraMayda RALF Peguero [facility] CPT-4: 36708 02/13/2012 ([id number]) OFFICE/OUTPATIENT VISIT EST Diagnosis: MIGRAINE NOS/NOT INTRCBL[ICD9: 346.90] Diagnosis: GERD[ICD9: 530.81] Diagnosis: DYSPEPSIA[ICD9: 536.8] Belia CORNELLLINE BushraMayda RALF [facility] CPT-4: 71048 01/28/2012 OFFICE/OUTPATIENT VISIT EST Diagnosis: CEPHALGIA[ICD9: 784.0] Diagnosis: MIGRAINE NOS/NOT INTRCBL[ICD9: 346.90] Diagnosis: GERD[ICD9: 530.81] Diagnosis: INSOMNIA NOS[ICD9: 780.52] Belia Yandelisabellaannie HSUBELIA BushraMayda RAND DAILEYER [facility] CPT-4: 25299 12/26/2011 ([id number]) OFFICE/OUTPATIENT VISIT EST Diagnosis: CEPHALGIA[ICD9: 784.0] Diagnosis: MIGRAINE NOS/NOT INTRCBL[ICD9: 346.90] Diagnosis: MALAISE AND FATIGUE[ICD9: 780.79] Diagnosis: FIBROMYALGIA[ICD9: 729.1] Diagnosis: ALLERGIC RHINITIS[ICD9: 477.9] Belia Anushka BELIA Bushra Mayda [facility] CPT-4: 15790 11/14/2011 ([id number]) OFFICE/OUTPATIENT VISIT EST Diagnosis: MALAISE AND FATIGUE[ICD9: 780.79] Diagnosis: MUSCLE WEAKNESS-GENERAL[ICD9: 728.87] Diagnosis: MIGRAINE NOS/NOT INTRCBL[ICD9: 346.90] Diagnosis: JOINT PAIN-SHLDER[ICD9: 719.41] Belia REID [facility] CPT-4: 76418 09/12/2011 ([id number]) OFFICE/OUTPATIENT VISIT EST Diagnosis: CONCUSSION[ICD9: 850.9] Diagnosis: Ataxia[ICD9: 781.3] Diagnosis: DIZZINESS/VERTIGO[ICD9: 780.4] Belia REID [facility] CPT-4: 00759 08/15/2011 ([id number]) OFFICE/OUTPATIENT VISIT EST Diagnosis: THROMBOPHLEBITIS[ICD9: 451.9] Diagnosis: Subacromial bursitis[ICD9: 726.19] Diagnosis: ALLERGIC RHINITIS[ICD9: 477.9] Diagnosis: Lipoma[ICD9: 214.9] [facility]: 73174 08/09/2011 ([id number]) OFFICE/OUTPATIENT VISIT EST Diagnosis: THROMBOPHLEBITIS[ICD9: 451.9] Diagnosis: Arm pain[ICD9: 729.5] Diagnosis: Clostridium difficile colitis[ICD9: 008.45] Diagnosis: URINARY TRACT INFECTION[ICD9: 599.0] [facility]: 83951 07/03/2011 ([id number]) OFFICE/OUTPATIENT VISIT EST Diagnosis: ARTHRALGIA-MULTIPLE SITES[ICD9: 719.49] Diagnosis: Muscle cramp[ICD9: 729.82] Diagnosis: INSOMNIA NOS[ICD9: 780.52] [facility]: 77337 06/04/2011 OFFICE/OUTPATIENT VISIT EST Diagnosis: Headache[ICD9: 784.0] Diagnosis: Allergic rhinitis[ICD9: 477.9] [facility]: 28934 05/03/2011 OFFICE/OUTPATIENT VISIT EST Diagnosis: LUMB/LUMBOSAC DISC DEGEN[ICD9: 722.52] Diagnosis: MIGRAINE NOS/NOT INTRCBL[ICD9: 346.90] Diagnosis: CHRONIC PAIN SYNDROME[ICD9: 338.4] Diagnosis: RESTLESS LEGS SYNDROME[ICD9: 333.94] Belia REID [facility] CPT-4: 28205 04/05/2011 OFFICE/OUTPATIENT VISIT EST Diagnosis: MIGRAINE NOS/NOT INTRCBL[ICD9: 346.90] Diagnosis: GERD[ICD9: 530.81] Belia REID [facility] CPT-4: 93484 03/08/2011 OFFICE/OUTPATIENT VISIT EST Diagnosis: URINARY TRACT INFECTION[ICD9: 599.0] Diagnosis: Vertigo[ICD9: 780.4] Diagnosis: GERD[ICD9: 530.81] [facility]: 86626 01/24/2011 OFFICE/OUTPATIENT VISIT EST Diagnosis: Hypotension[ICD9: 458.9] Diagnosis: Syncopal episodes[ICD9: 780.2] Diagnosis: MIGRAINE NOS/NOT INTRCBL[ICD9: 346.90] Diagnosis: MALAISE AND FATIGUE[ICD9: 780.79] [facility]: 57016 01/02/2011 OFFICE/OUTPATIENT VISIT EST Diagnosis: Tinea cruris[ICD9: 110.3] Diagnosis: Intertrigo[ICD9: 695.89] Diagnosis: MIGRAINE NOS/NOT INTRCBL[ICD9: 346.90] Belia HSUQ [facility]: 11775 12/07/2010 OFFICE/OUTPATIENT VISIT EST Diagnosis: PALPITATIONS[ICD9: 785.1] Diagnosis: ANXIETY STATE NOS[ICD9: 300.00] [facility]: 97844 11/16/2010 OFFICE/OUTPATIENT VISIT EST Diagnosis: URINARY TRACT INFECTION[ICD9: 599.0] Diagnosis: MIGRAINE NOS/NOT INTRCBL[ICD9: 346.90] Iraida CASILLAS [facility]: 73756 11/02/2010 OFFICE/OUTPATIENT VISIT EST Diagnosis: ALLERGIC RHINITIS[ICD9: 477.9] Diagnosis: ANXIETY STATE NOS[ICD9: 300.00] Belia [facility] CPT-4: 45082 10/18/2010 OFFICE/OUTPATIENT VISIT EST Belia [facility] CPT- 4: 20426 09/19/2010 OFFICE/OUTPATIENT VISIT EST Belia [facility] CPT- 4: 27034 09/06/2010 ([id number]) OFFICE/OUTPATIENT VISIT EST Belia CASILLAS [facility] CPT-4: 81644 08/10/2010 ([id number]) OFFICE/OUTPATIENT VISIT EST Belia CASILLAS [facility] CPT-4: 10454 05/11/2010 ([id number]) OFFICE/OUTPATIENT VISIT, EST Belia MEJIAL[facility] CPT-4: 61425 04/06/2010 ([id number]) OFFICE/OUTPATIENT VISIT, EST Belia HSU [facility] CPT-4: 99367 02/09/2010 ([id number]) OFFICE/OUTPATIENT VISIT, EST Belia [facility]SU [facility] CPT-4: 47893 01/05/2010 ([id number]) OFFICE/OUTPATIENT VISIT, EST Belia [facility]SU [facility] CPT-4: 60429 12/07/2009 ([id number]) OFFICE/OUTPATIENT VISIT, EST Belia [facility]SU [facility] CPT-4: 27393 11/08/2009 ([id number]) OFFICE/OUTPATIENT VISIT, EST Beliahanna HSU [facility] CPT-4: 95021 10/24/2009 ([id number]) OFFICE/OUTPATIENT VISIT, EST Beliahanna [facility] CPT-4: 15742 07/25/2009 ([id number]) OFFICE/OUTPATIENT VISIT, EST Belia [facility] CPT-4: 56790 05/26/2009 Plan of Care Planned Activity Notes [...] new home sleep study on patient through rollins to assess severity of symptoms, patient does [...] ICD-10 : R10.2 08/04/2019 Appointment: Pattie Sotomayor [address] [place], [place] [id number] ACUTE ILLNESS 08/04/2019 Visit Diagnosis Plan: Inspiratory stridor Discussion: Continue oxygen via NC at 2 L Continue ativan at QID Follow Up: 4 weeks ICD-9 : 786.1 ICD-10 : R06.1 07/06/2019 Visit Diagnosis Plan: Diarrhea Discussion: Restart Col estid at once daily ICD-9 : 787.91 ICD-10 : R19.7 07/06/2019 Appointment: Belia Reid WPtel: [address] [place] [address] TELEMEDICINE 07/06/2019 Visit Diagnosis Plan: Left leg [...] : R06.00 06/24/2019 Appointment: Belia Reid WPtel: [address] [place] [address] TELEMEDICINE 06/24/2019 Visit Diagnosis Plan: Colitis Discussion: Levaquin/Fla gyl [place] Diet ICD-9 : 558.9 ICD-10 : K52.9 06/16/2019 Visit Diagnosis Plan: Acute bronchitis Discussion: Cov er with levaquin Increase SVNs with albuterol to QID Has oxygen using q HS routinely and prn To ER if oxygen levels drop or worsening respiratory symptoms ICD-9 : 466.0 ICD-10 : J20.9 06/16/2019 Appointment: Belia Reid WPtel: [facility] [address] TELEMEDICINE 06/16/2019 Patient Education: Levaquin- Optimize[employer] Coupon [id number] [email or web address]/[email or web address] Completed 06/16/2019 Visit Diagnosis Plan: Diarrhea Discussion: Vancomycin for 10 days and notify if not improving or worsening BLAND diet Hydrate ICD-9 : 787.91 ICD-10 : R19.7 06/08/2019 Appointment: Belia Reid WPtel: [address] [place] [address] TELEMEDICINE 06/08/2019 Visit Diagnosis Plan: Colitis Discussion: Flagyl plus cipro to cover for both colitis and UTI Notify or to ER if worsening ICD-9 : 558.9 ICD-10 : K52.9 05/26/2019 Visit Diagnosis Plan: Acute febrile illness Discussion : Notify if worsens ICD-9 : 780.60 ICD-10 : R50.9 05/26/2019 Appointment: Belia Reid WPtel: [address] [place] [address] TELEMEDICINE 05/26/2019 Appointment: Pattie Sotomayor [address] RESCHEDULED 05/18/2019 Visit Diagnosis Plan: Chronic obstructive pulmonary di sease, unspecified Discussion: Recommend pulmonary rehab Patient states she never went to pulmonary rehab due to cost as well as transportation issues Finish trelagy Stop singulair Decrease hydroxyzine to 25mg po q HS Fwup [address] scan of Chest results discussed ICD-9 : 496 ICD-10 : J44.9 05/13/2019 Appointment: Belia Reid WPtel: [address] [place] [address] Hospital Follow Up 05/13/2019 Visit Diagnosis Plan: COUGH Discussion: Check CT scan of chest ICD-9 : 786.2 ICD-10 : R05 05/06/2019 Visit Diagnosis Plan: Stridor Discussion: Add Trelagy 1 p daily Add Singulair May need to see new director of medical staff services ICD-9 : 786.1 ICD-10 : R06.1 05/06/2019 Appointment: Belia Reid WPtel: [address] [place], [place] [id number] FOLLOW UP 05/06/2019 Patient Education: Singulair- [employer] Coupon [id number] [email or web address]/samplemd/resources/getResource/[email or web address] Completed 05/06/2019 Appointment: Belia Reid WPtel: [address] [place], [place] [phone] [place] RESCHEDULED 04/30/2019 Visit Diagnosis Plan: Stridor [...] 333.5 ICD-10 : G25.5 04/29/2019 Appointment: Belia Redi WPtel: [address] [place], [place] [id number] Hospital Follow Up 04/29/2019 Patient Education: Valium- OptimizeRX Coupon [id number] https://www.Wakozi.Chasing [employer]/samplemd/resources/getResource/61/f98331uh-827p-8k82-0x Completed 04/29/2019 Visit Diagnosis Plan: Flank pain [...] ICD-10 : R63.5 04/16/2019 Appointment: Pattie Sotomayor [address] [place], [place] [phone] ACUTE ILLNESS 04/16/2019 Patient Education: cyclobenzaprine- OptimizeRX Coupon [id number] https://www.Wakozi.com/samplemd/resources/getResource/61/zm86p8v9-0338-9632-p4 Completed 04/16/2019 Visit Diagnosis Plan: Migraine, unspecif ied, not intractable, without status migrainosus Discussion: Increase gabapentin to 600mg po BID ICD-9 : 346.90 ICD-10 : G43.909 04/08/2019 Visit Diagnosis Plan: Generalized pruritus Discussion: Hydroxyzine 25mg po TID for itching and anxiety ICD-9 : 698.9 ICD-10 : L29.9 04/08/2019 Appointment: Belia Reid WPtel: [address] [place] [address] ACUTE ILLNESS 04/08/2019 Visit Diagnosis Plan: Cervicalgia [...] : M75.52 01/22/2019 Appointment: Belia Reid WPtel: [address] [place] [address] Hospital Follow Up 01/22/2019 Visit Diagnosis Plan: Abdominal pain Discussion: urine culture sent to assess for any infection. rocephin given in office to cover for pyelonephritis. instructed to push fluids. call office with any new or worsening symptoms. ICD-9 : 789.00 ICD-10 : R10.9 01/07/2019 Appointment: Pattie Sotomayor [address] [place] [address] ACUTE ILLNESS 01/07/2019 Visit Diagnosis Plan: Low back pain Discussion: Stat C T of abdomen/pelvis now ICD-9 : 724.2 ICD-10 : M54.5 12/24/2018 Appointment: Belia Reid WPtel: [address] [place] [address] FOLLOW UP 12/24/2018 Visit Diagnosis Plan: Migraine, [...] : M79.7 11/20/2018 Appointment: Belia Reid WPtel: [facility] [place] [id number] ACUTE ILLNESS 11/20/2018 Patient Education: baclofen- Opt[employer] Coupon [id number] https://www.Wakozi.Chasing Savings/samplemd/resources/getResource/61/0r3378h8-xt6e-03xe-04 Completed 11/20/2018 Visit Diagnosis Plan: Migraine, unspecif ied, intractable, without status migrainosus Discussion: toradol/phenergan given in o ffice (60 mg toradol, 12.5 mg phenergan). instructed to call if no improvement or worsening. instructed to follow up with customer service voice since headaches are occurring more frequently to make sure vision is not the cause. ICD-9 : 346.91 ICD-10 : G43.919 11/04/2018 Visit Diagnosis Plan: Acute sinusitis, unspecified Dis cussion: zithromax prescribed to cover for sinus infection due to length of symptoms and clinincal s/s. ICD-9 : 461.9 ICD-10 : J01.90 11/04/2018 Appointment: Pattie Sotomayor [address] [place], [place] [phone] ACUTE ILLNESS 11/04/2018 Appointment: Belia Reid WPtel: [facility] [place] [phone] US CANCELED 09/24/2018 Visit Diagnosis Plan: Type 2 diabetes me llitus with diabetic neuropathy, unspecified Discussion: Retry gabapentin 300mg po q HS ICD-9 : 250.60 ICD-10 : E11.40 09/18/2018 Visit Diagnosis Plan: Vitamin D deficiency, unspecifie d Discussion: Increase Vitamin D3 to 10,000 u daily ICD-9 : 268.9 ICD-10 : E55.9 09/18/2018 Visit Diagnosis Plan: Encounter for [facility] adult medical examination without abnormal [...] : I10 09/18/2018 Appointment: Belia Reid WPtel: [facility]6[address] Annual Well Visit 09/18/2018 Patient Education: gabapentin- OptimizeRX Coupon [id number] [phone] https://www.SeeMe/samplemd/resources/getResource/61/7r66fl92-5bm2-2esw-z3 Completed 09/18/2018 Visit Diagnosis Plan: Pain in [...] : M54.89 09/08/2018 Appointment: Pattie Sotomayor [address] [place], [place] [address] ACUTE ILLNESS 09/08/2018 Patient Education: prednisone- OptimizeRX Coupon [id number] https://www.Wakozi.Chasing Savings/samplemd/resources/getResource/61/1l7gr46e-7750-21w0-zy Completed 09/08/2018 Visit Diagnosis Plan: Pruritus, unspecified [...] E10.9 08/20/2018 Appointment: [facility]Ptel[facility] [address] [facility] [facility] 08/20/2018 Patient Education: Lexapro- OptimizeRX Coupon [id number] Completed 08/20/2018 Patient Education: hydroxyzine HCl- OptimizeRX Coupon [id number] Completed 08/20/2018 Care Plan: MAMMOGRAM SCREENING [facility] : 2 6347-5 Pending 08/20/2018 Visit Diagnosis [...] I95.2 06/19/2018 Appointment: Bel[facility] Reid [facility]Ptel[facility] [address] [facility] [facility] 06/19/2018 Visit Diagnosis Plan: [...] : R61 06/09/2018 Appointment: Belia Reid WPtel: [address] [place] [address] FOLLOW UP 06/09/2018 Care Plan: CHEST X-RAY 2VW FRONTAL&LATL LOINC : 76268-9 Pending 05/26/2018 Visit Diagnosis Plan: Supraventricular tachycardia [...] : R53.1 05/21/2018 Appointment: Belia Reid WPtel: [address] [place] [address] Hospital Follow Up 05/21/2018 Visit Diagnosis Plan: Cervical disc diso rder with radiculopathy, unspecified cervical region Discussion: Scheduled for surgery on 06/02 10/[address] Faulkner ICD-9 : 722.0 ICD-10 : M50.10 04/16/2018 Appointment: Belia Reid WPtel: [address] [place] [address] Hospital Follow Up 04/16/2018 Visit Diagnosis Plan: [...] ICD-10 : G43.919 04/01/2018 Appointment: Pattie Sotomayor [address] [place] [address] ACUTE ILLNESS 04/01/2018 Appointment: Belia Reid WPtel: [address] [place] [address] 03/17/2018 Visit Diagnosis Plan: Chronic obstructiv e [...] : E11.65 03/06/2018 Appointment: Belia Reid WPtel: [facility] Hospital Follow Up 03/06/2018 Visit Diagnosis Plan: Cervicalgia Discussion: spoke wi th dr. reid about patient. increased gabapentin to bid and started on celebrex bid. tramadrol rx written out to take prn. keep scheduled appt next week for myelogram. ICD-9 : 723.1 ICD-10 : M54.2 02/05/2018 Appointment: Pattie Sotomayor [address] [place] [address] ACUTE ILLNESS 02/05/2018 Care Plan: X-RAY EXAM NECK SPINE 4/5VWS cervical LOINC : 41945-2 Pending 01/21/2018 Visit Diagnosis Plan: Candidiasis of [...] ICD-10 : M54.2 01/20/2018 Appointment: Pattie Sotomayor [address] [place] [address] ACUTE ILLNESS 01/20/2018 Visit Diagnosis Plan: Pain in thoracic spine Discussio n: Proceed with CT scan of thoracic spine Will likely need PT ICD-9 : 724.1 ICD-10 : M54.6 12/25/2017 Appointment: Belia Reid WPtel: [address] [place] [address] FOLLOW UP 12/25/2017 Care Plan: CT THORAX W/O DYE LOINC : 473 66-0 Pending 12/25/2017 Visit Diagnosis Plan: Pain in thoracic spine Discussio n: Stretches Alternated heat/ice Topical aspercreme with lidocaine Flexeril Recheck 1 week Flu and Pneumovax given ICD-9 : 724.1 ICD-10 : M54.6 12/17/2017 Appointment: Belia Reid WPtel: [address] [place] [address] ACUTE ILLNESS 12/17/2017 Patient Education: Patient Medication [...] : J44.1 10/30/2017 Appointment: Belia Reid WPtel: [address] [place] [address] FOLLOW UP 10/30/2017 Patient Education: Patient Medication Summary Completed 10/30/2017 Visit Diagnosis Plan: Chronic obstructiv e pulmonary disease with acute lower respiratory infection Discussion: Continue SVNs with albuterol q4hrs Add Trelagy 1 inhalation daily Finish steroids Increase water intake Follow Up: 1 weeks ICD-9 : 496 ICD-10 : J44.0 10/23/2017 Appointment: Belia Reid WPtel: [address] [place] [address] WORK IN 10/23/2017 Patient Education: Patient Medication Summary Completed 10/23/2017 Appointment: Belia Reid WPtel: [address] [place] [address] NO SHOW 10/16/2017 Visit Diagnosis Plan: Confusional [...] : E11.65 09/17/2017 Appointment: Belia Reid WPtel: [address] [place] [address] Annual Well Visit 09/17/2017 Patient Education: Patient Medication Summary Completed 09/17/2017 Appointment: Belia Reid WPtel: [address] [place], [place] [phone] [place] INJECTION 08/26/2017 Patient Education: Patient Medication Summary Completed 08/26/2017 Appointment: Belia Reid WPtel: [address] [place], [place] [phone] US CANCELED 07/31/2017 Visit Diagnosis Plan: Encounter [...] : J20.9 07/19/2017 Appointment: Pattie Sotomayor [address] [place], [place] [address] ACUTE ILLNESS 07/19/2017 Patient Education: Patient Medication Summary Completed 07/19/2017 Care Plan: MAMMOGRAM SCREENING LOINC : 2 6347-5 Pending 07/19/2017 Patient Education: Patient Medication Summary Completed 06/05/2017 Care Plan: LIPID PANEL LOINC : 18617-6 Pending 06/05/2017 Care Plan: A1C HPLC LOINC : 57547-7 Pending 06/05/2017 Visit Diagnosis Plan: Rash and [...] : R21 05/29/2017 Appointment: Pattie Sotomayor [address] [place], [place] [address] FOLLOW UP 05/29/2017 Patient Education: Patient Medication Summary Completed 05/29/2017 Visit Diagnosis Plan: Tinea corporis Discussion: Diflu can and topical nystatin Follow Up: 2 weeks ICD-9 : 110.5 ICD-10 : B35.4 05/07/2017 Visit Diagnosis Plan: Diarrhea, unspecified Discussion : Diflucan Cholestyramine Recheck 2weeks ICD-9 : 787.91 ICD-10 : R19.7 05/07/2017 Appointment: Bel[facility] Reid [facility]Ptel[facility] [address] [facility] [facility] 05/07/2017 Patient Education: Patient Medication Summary Completed 05/07/2017 Appointment: Belia Reid WPtel: [address] [place], [place] [phone] US RESCHEDULED 04/30/2017 Visit Diagnosis Plan: Chronic obstructiv e pulmonary disease with (acute) exacerbation Discussion: Finish prednisone Continue S VNS with albuterol ICD-9 : 491.21 ICD-10 : J44.1 03/18/2017 Visit Diagnosis Plan: Stridor Discussion: Increase Ati van 0.5mg po to TID routinely for next week then can go back to prn ICD-9 : 786.1 ICD-10 : R06.1 03/18/2017 Appointment: Belia Reid WPtel: [address] [place], [place] [phone] ER Follow UP 03/18/2017 Patient Education: Patient [...] : E11.65 02/27/2017 Appointment: Belia Reid WPtel: [address] [place], [place] [phone] US FOLLOW UP 02/27/2017 Patient Education: Patient [...] : E11.65 02/22/2017 Appointment: Pattie Sotomayor [address] [place], [place] [id number] ACUTE ILLNESS 02/22/2017 Patient Education: [...] : J18.9 01/23/2017 Appointment: Belia Reid WPtel: [address] [place] [address] ER Follow UP 01/23/2017 Patient Education: Patient Medication Summary Completed 01/23/2017 Appointment: Pattie Sotomayor [address] [place] [address] CANCELED 01/17/2017 Appointment: Pattie Sotomayor [address] [place] [address] Annual Well Visit 01/14/2017 Visit Diagnosis Plan: Type 2 diabetes mellitus with hy perglycemia Discussion: Check CMP, HbA1C Flu shot and Prevnar 13 given Follow Up: 3 months ICD-9 : 250.02 ICD-10 : E11.65 12/20/2016 Visit Diagnosis Plan: Localized edema Discussion: Low Na diet Compression socks/Elevate feet ICD-9 : 782.3 ICD-10 : R60.0 12/20/2016 Appointment: Belia Reid WPtel: [facility] [place] [address] US FOLLOW UP 12/20/2016 Patient Education: Patient Medication Summary Completed 12/20/2016 Patient Education: Patient Medication Summary Completed 10/10/2016 Visit Plan: Xrays of cervical, thoracic and lumbar spine at [facility] for Mobic (stop NSAIDS except Tylenol) and Flexeril UA sent for C&S Using SVN Call in 2-3 days if pain not improved or any worsening 10/08/2016 Appointment: Celeste Ferreira WPtel: [address] [facility] ACUTE ILLNESS 10/08/2016 Patient Education: Patient [...] : E11.65 09/19/2016 Appointment: Belia Reid WPtel: [facility] 09/18 confirmed`sl FOLLOW UP [...] R10.84 08/20/2016 Appointment: Belia Reid WPtel: [address] [facility] 08/16 confirmed~sl FOLLOW UP 08/20/2016 Patient [...] : J44.9 06/19/2016 Appointment: Belia Reid WPtel: [address] [place], [place] [phone] 06/18 confirmed ~ Hospital Follow Up 06/19/2016 [...] : Z87.440 06/04/2016 Appointment: Belia Reid WPtel: [address] [place], [place] [phone] 06/01 confirmed~ FOLLOW UP 06/04/2016 Patient Education: [...] : R06.1 05/02/2016 Appointment: Belia Reid WPtel: [address] [place], [place] [phone] 05/01 confirmed ~ Hospital Follow Up 05/02/2016 [...] : N39.0 04/03/2016 Appointment: Belia Reid WPtel: [address] [place] [address] 04/02 confirmed~ Hospital Follow Up 04/03/2016 Patient Education: Patient Medication Summary Completed 04/03/2016 Visit Plan: Lungs are clear Her symptoms and exam are all upper airway restriction/constriction Can try supportive care Rx as above Follow up PRN 02/29/2016 Appointment: Lidia Hwang [address] [place] [address] ACUTE ILLNESS 02/29/2016 Patient Education: Patient Medication Summary Completed 02/29/2016 Visit Plan: Toradol/Phenergan today for Migraine Change to Clindamycin to cover lactobacillus for UTI Cover with flagyl due to hx of C. Diff 02/02/2016 Appointment: Belia Reid WPtel: [address] [place] [address] 01/31 confirmed`sl ACUTE ILLNESS 02/02/2016 Patient Education: Patient Medication Summary Completed 02/02/2016 Visit Plan: Increase neurontin to 300mg q AM and 600mg q PM Discussed neurology re-evaluation Flu shot given Need to check on Pneumonia shot Rx written out for albuterol 01/05/2016 Appointment: Belia Reid WPtel: [address] [place] [address] 01/03 confirmed ~sl Annual Well Visit 01/05/2016 Patient Education: Patient Medication Summary Completed 01/05/2016 Visit Plan: Cipro Culture urine hydrate Flexeril refilled Alternate heat and ice for back Increase gabapentin to 300mg po BID Notify if worsens 12/05/2015 Appointment: Belia Reid WPtel: [address] [place], [place] [phone] 11/30 confirmed~sl ACUTE ILLNESS 12/05/2015 Patient Education: Patient Medication Summary Completed 12/05/2015 Patient Education: Patient Medication Summary Completed 10/27/2015 Care Plan: [place] : 42[address]-7 Pending 10/27/2015 Care Plan: A1C HPLC LOINC : 71303-5 Pending 10/27/2015 Visit Plan: Lungs are CTA today and is f eeling improved overall Finish meds as ordered Continue inhalers and neb treatments Discussed migraine treatment options She does not feel she needs anything additional added today Refill of Januvia sent since no samples are available today 10/26/2015 Appointment: Lidia Hwang [address] [place] [address] Hospital Follow Up 10/26/2015 Appointment: Lidia Hwang [address] [place] [address] CANCELED 10/26/2015 Patient Education: Patient Medication Summary Completed 10/26/2015 Patient Education: Januvia - 18+ - KENNETH - No [place] Completed 10/26/2015 Visit Plan: Office dip still abnormal Cu lture pending Switch to cipro - stop macrobid Push fluids - avoid caffeine Will call with culture results when available Follow up if worsening 10/05/2015 Appointment: Lidia Hwang [address] [place] [address] ER Follow UP 10/05/2015 Patient Education: Patient Medication Summary Completed 10/05/2015 Visit Plan: Proceed with PT for document ation of ROM and strength of all extremities Proceed with Power Mobility Device Trial of neurontin 300mg q HS--lyrica helped but patient unable to afford Recheck 1month 09/15/2015 Appointment: Belia Reid WPtel: [phone] [facility] 09/13 confirmed~sl SPECIAL 09/15/2015 Patient Education: Patient Medication Summary Completed 09/15/2015 Visit Plan: Fille out Loan Discharge Pap erwork for total and permanent disability 08/25/2015 Patient Education: Patient Medication Summary Completed 08/25/2015 Visit Plan: Discussed with Dr Anushka Haywood at [facility] of head 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 and update if needed 08/24/2015 Appointment: Lidia Hwang [address] [place], [place] [id number] 08/22 confirmed~sl ACUTE ILLNESS 08/24/2015 Patient Education: Patient Medication Summary Completed 08/24/2015 Patient Education: Patient Medication Summary Completed 08/24/2015 Care Plan: US EXAM OF HEAD AND NECK carotid Ultrasound LOIN C : 21812-6 Pending 08/24/2015 Visit Plan: Long discussion about diet A ccuchecks daily Check HbA1C, CMP Change requip to mirapex 07/05/2015 Appointment: Belia Reid WPtel: [address] [place] [address] 07/03 confirmed ~sl FOLLOW UP 07/05/2015 Patient Education: Patient Medication Summary Completed 07/05/2015 Visit Plan: Add Breo ellipta 100 1 p BID Continue SVNs with duoneb QID 06/06/2015 Appointment: Belia Reid WPtel: [address] [place] [address] Patient is calling for a ride, then retu rning our call.-sp 06/01 called and patient stated she will know saturday if she can get a ride~sl 06/05 [facility] Hospital Follow Up 06/06/2015 Patient [...] not improving 05/23/2015 Appointment: Huong Osborne WPtel: [facility] ACUTE ILLNESS 05/23/2015 Appointment: Lidia Hwang [address] [facility] ER Follow UP 05/23/2015 Patient Education: Patient Medication Summary Completed 05/23/2015 Visit Plan: Check pancreatic enzymes and US of pancreas as patient can't understand why she has diabetes since has no family history Discussed weight, diet, exercise all play an important role in diabetes and are risk factors as well Continue Januvia and accuchecks daily 05/05/2015 Appointment: Belia Reid WPtel: [address] [place], [place] [phone] US FOLLOW UP 05/05/2015 Patient Education: Patient Medication Summary Completed 05/05/2015 Care Plan: US EXAM ABDOM COMPLETE LOINC : 59162-6 Ordered 05/05/2015 Visit Plan: Start Januvia 100mg daily [place] with diflucan and culture urine Accuchecks daily alternating times Recheck 6weeks 03/30/2015 Appointment: Belia Reid WPtel: [address] [place], [place] [address] 03/29 confirmed~lb FOLLOW UP 03/30/2015 Patient Education: Patient Medication Summary Completed 03/30/2015 Appointment: Belia Reid WPtel: [address] [place] [address] 03/01 needs reschedule due to payment and insurance ~sl FOLLOW UP 03/02/2015 Visit Plan: Patient was just in ER last night so has not filled scripts yet Start Carafate and Flagyl and Cipro Add Hyophen 1 po BID Recheck 1mo 02/03/2015 Appointment: Belia Reid WPtel: [address] [place], [place] [phone] [place] 02/02lm ~sl...02/03/15 appt confirmed cn ACUTE I LLNESS 02/03/2015 Patient Education: Patient Medication Summary Completed 02/03/2015 Visit Plan: Warm soaks to vaginal area K elex and Diflucan and observe Zofran to use prn 12/29/2014 Appointment: Belia Reid WPtel: [address] [place], [place] [phone] 12/28 Confirmed ~sl ACUTE ILLNESS 12/29/2014 Patient Education: Patient Medication Summary Completed 12/29/2014 Appointment: Huong Osborne WPtel: [address] [place], [place] [phone] FOLLOW UP 09/24/2014 Appointment: Belia Reid WPtel: [address] [place], [place] [phone] 09/15 confirmed -mf FOLLOW UP 09/16/2014 Visit Plan: Increase requip to 2mg po BI D Increase lyrica to 225mg total a day by adding an extra 75mg in AM Recheck in 2weeks Continue to patch left eye while sleeping 09/02/2014 Appointment: Belia Reid WPtel: [address] [place], [place] [phone] 09/01 appt confirmed Hospital Follow Up 09/02 Patient Education: Patient Medication Summary Completed 09/02/2014 Visit Plan: To Yessenia dominguez observat ion to R/O CVA 08/25/2014 Appointment: Huong Osborne WPtel: [address] [place], [place] [phone] ACUTE ILLNESS 08/25/2014 Patient Education: Patient Medication Summary Completed 08/25/2014 Referral: Aaron Jonas WPtel: [facility] [address] [place] location Initiated 04/26/2014 Referral: Brian Srinivasan [facility]Ptel[facility] [place] [facility] Ref[facility] Initiated 04/20/2014 Appointment: Belia Reid WPtel: [address] [place], [place] [phone] ER Follow UP 04/01/2014 Patient Education: Patient Medication Summary Completed 04/01/2014 Care Plan: MYELOGRAPHY NECK SPINE LOINC : 93955-8 Ordered 04/01/2014 Visit Plan: Continue Symbicort 160 at 2p BID Continue SVNs with duoneb at least QID Finish Levaquin Recheck 1mo on lyrica 03/16/2014 Appointment: Belia Reid WPtel: [address] [place], [place] [phone] 03/15 voicemail FOLLOW UP 03/16/2014 Patient Education: Patient Medication Summary Completed 03/16/2014 Visit Plan: Restart SVNs with duoneb QID Repeat prednisone Levaquin Continue symbicort Keep lyrica at same dose Recheck 1week 03/09/2014 Appointment: Belia Reid WPtel: [address] [place], [place] [phone] FOLLOW UP 03/09/2014 Patient Education: Patient Medication Summary Completed 03/09/2014 Appointment: Belia Reid WPtel: [address] [place], [place] [phone] 03/03 showed up 15 minutes late for appt -- put her on Huong's side for 10:45am FORGIVEN PER DR FOLLOW UP 03/03/2014 Appointment: Huong Osborne WPtel: [address] [place] [address] FOLLOW UP 03/03/2014 Patient Education: Patient Medication Summary Completed 03/03/2014 Appointment: Huong Osborne WPtel: [address] [place], [place] [phone] ER Follow UP 03/01/2014 Patient Education: Patient Medication Summary Completed 03/01/2014 Visit Plan: Add carafate for this next m onth Increase lyrica to 150mg q HS 02/09/2014 Appointment: Belia Reid WPtel: [address] [place], [place] [phone] [place] [address] Follow Up 02/09/2014 Patient Education: Patient Medication Summary Completed 02/09/2014 Visit Plan: Increase omeprazole back to 40mg po BID Use requip in AM and add lyrica 75mg q HS Recheck 1mo 12/23/2013 Appointment: Belia Reid WPtel: [address] [place], [place] [phone] FOLLOW UP 12/23/2013 Patient Education: Patient Medication Summary Completed 12/23/2013 Patient Education: Patient Medication Summary Completed 12/04/2013 Appointment: Belia Reid WPtel: [address] [place], [place] [phone] UA 10/30/2013 Patient Education: Patient Medication Summary Completed 10/30/2013 Appointment: Belia Reid WPtel: [address] [place], [place] [phone] UA 10/21/2013 Patient Education: Patient Medication Summary Completed 10/21/2013 Visit Plan: Cryotherapy as above TAC and hydroxyzine to use prn to itching spots and itching SKs Add Advair HFA 115/21 1 p BID 10/05/2013 Appointment: Belia Reid WPtel: [address] [place], [place] [phone] 10/01 pt called and confirmed ACUTE ILLNESS Patient Education: Patient Medication Summary Completed 10/05/2013 Appointment: Belia Reid WPtel: [address] [place], [place] [phone] will pay copay and part of past balance FOLLOW U P 08/04/2013 Patient Education: Patient Medication Summary Completed 08/04/2013 Appointment: Belia Reid WPtel: [address] [place], [place] [phone] US INJECTION 07/13/2013 Patient Education: Patient Medication Summary Completed 07/13/2013 Appointment: Huong Osborne WPtel: [address] [place] [phone] ACUTE ILLNESS 07/03/2013 Patient Education: Patient Medication Summary Completed 07/03/2013 Visit Plan: Cipro and culture urine 05/27/2013 Appointment: Huong Osborne WPtel: [address] [place], [place] [address] [place] 05/26 confirmed appt and 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 time FOLLOW UP 05/27/2013 Patient Education: Patient Medication Summary Completed 05/27/2013 Appointment: Belia Reid WPtel: [address] [place], [place] [address] [place] UA 05/25/2013 Patient Education: Patient Medication Summary Completed 05/25/2013 Appointment: Belia Reid WPtel: [address] [place], [place] [phone] US INJECTION 05/04/2013 Patient Education: Patient Medication Summary Completed 05/04/2013 Appointment: Belia Reidtel: [address] [place], [place] [phone] US INJECTION 04/17/2013 Patient Education: Patient Medication Summary Completed 04/17/2013 Appointment: Belia Reid WPtel: [address] [place], [place] [phone] [place] INJECTION 04/15/2013 Appointment: Belia Reid WPtel: [address] [place], [place] [phone] 04/02 vm FOLLOW UP 04/06/2013 Patient Education: Patient Medication Summary Completed 04/06/2013 Visit Plan: Obtain lab results including UA from [facility] 11/10/2012 Appointment: Belia Reidtel: [address] [place], [place] [phone] ER Follow UP 11/10/2012 Patient Education: Patient Medication Summary Completed 11/10/2012 Appointment: Belia Reidtel: [address] [place], [place] [phone] 10/30/12 patient canceled appt due to fin ances. Offered to work something out, patient declined-LB FOLLOW UP 11/05/2012 Visit Plan: Continue Bystolic at current dose Pt has fwup with Neurology on September 16 09/02/2012 Appointment: Belia Reid WPtel: [address] [place], [place] [phone] FOLLOW UP 09/02/2012 Patient Education: Patient Medication Summary Completed 09/02/2012 Visit Plan: Continue bystolic at 5mg chris ly Sees Neurology tomorrow Use oxygen at bedtime 08/04/2012 Appointment: Belia Reid WPtel: [address] [place] [address] FOLLOW UP 08/04/2012 Patient Education: Patient Medication Summary Completed 08/04/2012 Appointment: Belia Reid WPtel: [address] [place] [address] Hospital fwup for 07/21/12. merged appointments FOLLOW UP 07/24/2012 Visit Plan: Start Bystolic 5mg daily for tachycardia Fwup with neurology for further workup Overnight O2 sat 07/21/2012 Appointment: Belia Reid WPtel: [address] [place] [address] Hospital Follow Up 07/21/2012 Patient Education: Patient Medication Summary Completed 07/21/2012 Visit Plan: SVN with Albuterol QID Add A velox 400mg daily Notify if worsens or persists 07/02/2012 Appointment: Belia Reid WPtel: [address] [place] [address] ACUTE ILLNESS 07/02/2012 Patient Education: Patient Medication Summary Completed 07/02/2012 Appointment: Belia Reid WPtel: [address] [place], [place] [phone] INJECTION 06/25/2012 Patient Education: Patient Medication Summary Completed 06/25/2012 Appointment: Belia Reid WPtel: [address] [place], [place] [phone] FOLLOW UP 06/24/2012 Patient Education: Patient Medication Summary Completed 06/24/2012 [facility]ment: [facility] [phone] [facility] [facility] left message FOLLOW UP 05/20/2012 [...] TID 05/08/2012 Appointment: [facility]el[facility] [phone] [facility] [facility] 05/08/2012 Patient Education: Patient Medication Summary Completed 05/08/2012 Visit Plan: Continue current meds Contin ue lower dose on pain meds and Diazepam Still waiting on paperwork for botox for Migraines Will restart Neurontin at 600mg po q HS Pt going to stop Depakote due to can't afford 04/22/2012 Appointment: Belia Reid WPtel: [address] [place], [place] [id number] 04/21 Hospital Follow Up 04/22/2012 Patient Education: Patient Medication Summary Completed 04/22/2012 Visit Plan: Injection to shoulder as abo ve Continue current meds Has appointment with neurology on HAs in 02/13/2012 Appointment: Belia Reid WPtel: [address] [place], [place] [id number] Pt does not have $10 copay at [facility] t time - will bring it in next week. Kianna iqbal'ed this. - [place] FOLLOW UP 02/13/2012 Patient Education: Patient Medication Summary Completed 02/13/2012 Visit Plan: Proceed with headache specia list Change nexium to Protonix Phenergan to use prn Sumatriptan to use prn Pt still on Inderal 01/28/2012 Appointment: Belia Reid WPtel: [facility] [facility] Follow UP 01/28/2012 Patient Education: [...] for sleep 12/26/2011 Appointment: Belia Reid WPtel: [address] [place], [place] [phone] 12/24- appt. confirmed FOLLOW UP 2 Patient Education: Patient Medication Summary Completed 12/26/2011 Appointment: Belia Reid WPtel: [address] [place], [place] [phone] [place] FOLLOW UP 11/14/2011 Patient Education: Patient Medication Summary Completed 11/14/2011 Appointment: Belia Reid WPtel: [address] [place], [place] [phone] FOLLOW UP 09/12/2011 Patient Education: Patient Medication Summary Completed 09/12/2011 Visit Plan: Supportive care Decrease Liseth catalino to 50mg q HS Decrease AM dose of Valium to 5mg q HS Use Endocet sparingly 08/15/2011 Appointment: Belia Reid WPtel: [address] [place], [place] [phone] ER Follow UP 08/15/2011 Patient Education: Patient Medication Summary Completed 08/15/2011 Appointment: Belia Reid WPtel: [address] [place], [place] [phone] [place] Spoke directly to patient yesterday and confirmed the appoin tment. cn ACUTE ILLNESS 08/09/2011 Patient Education: Patient Medication Summary Completed 08/09/2011 Appointment: Belia Reid WPtel: [address] [place], [place] [phone] Hospital Follow Up 07/03/2011 Patient Education: Patient Medication Summary Completed 07/03/2011 Appointment: Belia Reid WPtel: [address] [place], [place] [phone] FOLLOW UP 06/04/2011 Patient Education: Patient Medication Summary Completed 06/04/2011 Visit Plan: Pt. wants "allergy shot" but in fact wants steroid shot. Will take a break from "generic Zyrtec they are getting from [place]" and try Singulair for 2 weeks. 05/03/2011 Appointment: Iraida Jones WPtel: [address] [place], [place] [phone] ACUTE ILLNESS 05/03/2011 Patient Education: Patient Medication Summary Completed 05/03/2011 Visit Plan: Neurontin 400mg q HS for 1we ek then 800mg q HS Decrease requip to 1mg q HS for 2wks then stop Fwup 2mos 04/05/2011 Appointment: Belia Reid WPtel: [address] [place], [place] [phone] FOLLOW UP 04/05/2011 Patient Education: Patient Medication Summary Completed 04/05/2011 Visit Plan: Trial of neurontin in 2wks C ontinue current meds for stomach Pt has procedure with Dr. Ortiz next week for stone removal 03/08/2011 Appointment: Belia Reid WPtel: [address] [place], [place] [phone] Hospital Follow Up 03/08/2011 Patient Education: Patient Medication Summary Completed 03/08/2011 Appointment: Belia Reid WPtel: [address] [place], [place] [phone] FOLLOW UP 02/19/2011 Visit Plan: reports increased [...] with Flagyl 01/24/2011 Appointment: Iraida Jones WPtel: [address] [place] [address] ACUTE ILLNESS 01/24/2011 Patient Education: Patient Medication Summary Completed 01/24/2011 Appointment: Belia Reid WPtel: [address] [place] [address] [place] FOLLOW UP 01/02/2011 Patient Education: Patient Medication Summary Completed 01/02/2011 Appointment: Belia Reid WPtel: [address] [place] [address] FOLLOW UP 12/12/2010 Appointment: Belia Reid WPtel: [address] [place] [address] ACUTE ILLNESS 12/07/2010 Patient Education: Patient Medication Summary Completed 12/07/2010 Visit Plan: Increase Buspar to 10mg po B ID 11/16/2010 Appointment: Belia Reid WPtel: [address] [place] [address] FOLLOW UP 11/16/2010 Patient Education: Patient Medication Summary Completed 11/16/2010 Appointment: Iraida Jones WPtel: [address] [place] [address] ER Follow UP 11/02/2010 Patient Education: Patient Medication Summary Completed 11/02/2010 Visit Plan: Depo-Medrol/Kenalog given fo r allergies Add BuSpar for anxiety Oxycodone one p.o. q.i.d. for number 120 refilled 10/18/2010 Appointment: Belia Reid WPtel: [address] [place] [address] [place] FOLLOW UP 10/18/2010 Patient Education: Patient Medication Summary Completed 10/18/2010 Visit Plan: Continue current meds Discus sed epidurals for back vs PT--will proceed with epidurals to thoracolumbar region to see if helps with pain 09/19/2010 Appointment: Belia Reid WPtel: [address] [place], [place] [phone] FOLLOW UP 09/19/2010 Patient Education: Patient Medication Summary Completed 09/19/2010 Visit Plan: DC MS contin Check CT scan t horacic spine Fwup pending above results 09/06/2010 Appointment: Belia Reid WPtel: [address] [place], [place] [phone] FOLLOW UP 09/06/2010 Patient Education: Patient Medication Summary Completed 09/06/2010 Visit Plan: Continue current meds Restar t MS contin 15mg po BID and use oxycodone prn Use daily senokot-s 2 po BID 08/10/2010 Appointment: Belia Reid WPtel: [address] [place], [place] [phone] FOLLOW UP 08/10/2010 Patient Education: Patient Medication Summary Completed 08/10/2010 Visit Plan: Depomedrol/Kenalog given Pt sees ENT later this month Cont current meds Mammo scheduled 05/11/2010 Appointment: Belia Reid WPtel: [address] [place] [address] FOLLOW UP 05/11/2010 Patient Education: Patient Medication Summary Completed 05/11/2010 Appointment: Belia Reid WPtel: [address] [place], [place] [phone] [facility] 05/04/2010 Patient Education: Patient Medication Summary Completed 05/04/2010 Visit Plan: Pt sent to lab for UA 04/28/2010 Appointment: Belia Reid WPtel: [address] [place], [place] [phone] [facility] 04/28/2010 Patient Education: Patient Medication Summary Completed 04/28/2010 Visit Plan: Check CT angiogram of chest Restart Advair Use proair prn Cont current meds Fwup with Card as schedulec 04/06/2010 Appointment: Belia Reid WPtel: [address] [place], [place] [phone] [place] [address] Follow Up 04/06/2010 Patient Education: Patient Medication Summary Completed 04/06/2010 Visit Plan: Paperwork filled out for pow erchair Depomedrol/kenalog given Pt sees ENT in 2wks to assess nasal obstruction problems 02/09/2010 Appointment: Belia Reidtel: [address] [place], [place] [phone] ESTABLISHED PATIENT 02/09/2010 Patient Education: Patient Medication Summary Completed 02/09/2010 Visit Plan: Change Elavil to Trazadone 1 50mg q HS Diflucan and nystatin for tinea cruris 01/05/2010 Appointment: Belia Reid WPtel: [address] [place] [address] FOLLOW UP 01/05/2010 Patient Education: Patient Medication Summary Completed 01/05/2010 Appointment: Belia Reid WPtel: [address] [place] [address] FOLLOW UP 12/07/2009 Patient Education: Patient Medication Summary Completed 12/07/2009 Appointment: Belia Reid WPtel: [address] [place] [address] FOLLOW UP 11/22/2009 Visit Plan: Cont current meds and await MRI results from Dr. Meadows's office and his final recommendations Will need to follow-up at later date on deviated septum 11/08/2009 Appointment: Belia Reid WPtel: [address] [place], [place] [phone] FOLLOW UP 11/08/2009 Patient Education: Patient Medication Summary Completed 11/08/2009 Visit Plan: Cont PT/OT See Neurosurgery Cont Tortoise shell brace 10/24/2009 Appointment: Belia Reid WPtel: [address] [place], [place] [phone] FOLLOW UP 10/24/2009 Patient Education: Patient Medication Summary Completed 10/24/2009 Appointment: Belia Reid WPtel: [phone] [facility] Hospital Follow Up 10/17/2009 Appointment: Belia Reid WPtel: [address] [place], [place] [phone] ACUTE ILLNESS 07/25/2009 Patient Education: Patient Medication Summary Completed 07/25/2009 Appointment: Belia Reid WPtel: [address] [place], [place] [phone] FOLLOW UP 05/26/2009 Patient Education: Patient Medication Summary Completed 05/26/2009 Referral: Chino Balderas WPtel: [facility] [place] Referral Initiated Referral: Merry Vale WPtel: [facility] [id number] Vale will review referral and book appointment Completed Referral: Francisco Javier Yoder WPtel: [address] [id number] [place] Patient needs EGD insurance will not inc rease a medication unless this procedure results show a need Completed Referral: Francisco Javier Yoder WPtel: [address] [id number] [place] Referral Historical Reference Referral: Francisco Javier Yoder WPtel: [address] [id number] [place] Referral Initiated Instructions Comment . 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 Long discussion [...] from "generic Zyrtec they are getting from [facility]" and try Singulair for 2 weeks. . [...]
--- OUTSIDE RECORDS SUMMARY | 2019-08-27 08:00 | XMS REPORT | CCD ---
Author Author Diana Reid D.O. Organization [facility] Address [address] [place] [address] Phone Care Team Providers Care Instructor Flying Name Role Phone Belia Reid D.O., PP Unavailable CCM Unavailable Summary Purpose Interface Exchange Insurance Providers Payer name Policy type / Coverage type Covered alliance party ID Effective Begin Date Effective End Date [employer] MEDICARE Medicare Part B [id number] 2019 Unknown Family History Family History data not found Social History Social History Element Codes Description Effective Dates Tobacco history SNOMED CT: 658633230 Nonsmoker 09/13/2010 Allergies, Adverse Reactions, Alerts Substance Reaction Codes Entered Date Inactivated Date Status Eggs reaction [id number] 09/15/2015 No Inactive Date Active _ Unknown [...] Fill Instructions Ativan 0.5 mg tablet RxNorm: 005363 1 Tablet(s) Oral th ree times a day for anxiety/shortness of air/stridor 07/29/2019 08/27/2019 Active Singulair 10 mg tablet RxNorm: 054865 1 Tablet(s) Oral QPM 07/29/19 20 01/25/2020 Active diltiazem CD 240 mg capsule,extended release 24 hr RxNorm: 8 46705 1 Capsule(s) Oral QD 07/15/2019 01/10/2020 Active metoprolol tartrate 50 mg tablet RxNorm: 392786 1 Table t(s) Oral two times a day 07/06/2019 No Stop Date Active Novolin N NPH U-100 Insulin isophane 100 unit/mL subcu taneous susp RxNorm: 697802 25 Unit(s) Subcutaneous two times a day 07/06/2019 07/06/2019 I nactive Colestid 1 gram tablet RxNorm: 3381213 1 Tablet(s) Oral two times a day for diarrhea 07/06/2019 09/04/2019 Active pramipexole 1 mg tablet RxNorm: 398975 1 Tablet(s) Oral QPM FOR RESTLESS LEGS (REPLACES REQUIP) 06/25/2019 06/19/2020 Active hydroxyzine HCl 25 mg tablet RxNorm: 795556 1 Tablet(s) Oral QPM for itching/aniety 06/25/2019 09/23/2019 Active Ativan 0.5 mg tablet RxNorm: 738134 1 Tablet(s) Oral th ree times a day for anxiety/shortness of air/stridor 06/25/2019 07/25/2019 Inactive Levaquin 500 mg tablet RxNorm: 042848 1 Tablet(s) Oral QD 06/16/2019 06/23/2019 Inactive Flagyl 500 mg tablet RxNorm: 099401 1 Tablet(s) Oral three time s a day 06/16/2019 06/23/2019 Inactive Vancocin 125 mg capsule RxNorm: 026319 1 Capsule(s) Oral four t imes a day 06/08/2019 06/18/2019 Inactive omeprazole 40 mg capsule,delayed release RxNorm: 435556 1 Capsule(s) Oral two times a day 05/26/2019 11/21/2019 Active Flagyl 500 mg tablet RxNorm: 754904 1 Tablet(s) Oral three time s a day 05/26/2019 06/05/2019 Inactive diltiazem CD 240 mg capsule,extended release 24 hr RxNorm: 8 55888 1 Capsule(s) Oral QD 05/26/2019 07/14/2019 Inactive Cipro 250 mg tablet RxNorm: 755234 1 Tablet(s) Oral two times a day 05/26/2019 06/02/2019 Inactive hydroxyzine HCl 25 mg tablet RxNorm: 517469 1 Tablet(s) Oral QPM for itching/aniety 05/21/2019 06/24/2019 Inactive metoprolol tartrate 25 mg tablet RxNorm: 947176 1 Table t(s) Oral two times a day 05/21/2019 07/05/2019 Inactive hydroxyzine HCl 25 mg tablet RxNorm: 496853 1 Tablet(s) Oral QPM for itching/aniety 05/13/2019 05/20/2019 Inactive Singulair 10 mg tablet RxNorm: 233529 1 Tablet(s) Oral QPM 05/06/1905/12/2019 Inactive gabapentin 600 mg tablet RxNorm: 940654 1 Tablet(s) Oral QD 020 06/05/2019 Inactive Valium 5 mg tablet RxNorm: 245436 1 Tablet(s) Oral QPM for stri joao/muscle spasm 04/29/2019 06/24/2019 Inactive baclofen 10 mg tablet RxNorm: 112845 1 Tablet(s) Oral QPM for s pasm/neck pain 04/24/2019 05/23/2019 Inactive baclofen 10 mg tablet RxNorm: 161613 1 Tablet(s) Oral QPM for s pasm/neck pain 04/24/2019 04/23/2019 Inactive Novolin N NPH U-100 Insulin isophane 100 unit/mL subcu taneous susp RxNorm: 473423 23 Unit(s) Subcutaneous two times a day 04/20/2019 07/05/2019 I nactive cyclobenzaprine 5 mg tablet RxNorm: 958182 1 Tablet(s) Oral three times a day as needed 04/16/2019 04/23/2019 Inactive hydroxyzine HCl 25 mg tablet RxNorm: 983581 1 Tablet(s) Oral three times a day for itching/aniety 04/08/2019 05/12/2019 Inactive gabapentin 600 mg tablet RxNorm: 294494 1 Tablet(s) Oral two ti mes a day 04/08/2019 05/05/2019 Inactive gabapentin 600 mg tablet RxNorm: 647357 1 Tablet(s) Oral two ti mes a day 04/08/2019 04/07/2019 Inactive Novolin N NPH U-100 Insulin isophane 100 unit/mL subcu taneous susp RxNorm: 943973 10 Unit(s) Subcutaneous two times a day 03/03/2019 04/19/2019 I nactive gabapentin 300 mg capsule RxNorm: 619434 1 Capsule(s) O ral every night at bedtime for neuropathy 02/26/2019 04/07/2019 Inactive gabapentin 300 mg capsule RxNorm: 203776 1 Capsule(s) O ral every night at bedtime for neuropathy 02/20/2019 02/25/2019 Inactive buspirone 5 mg tablet RxNorm: 380353 TAKE 1 TABLET THREE TIMES MILDRED Y 02/12/2019 05/12/2019 Inactive pramipexole 1 mg tablet RxNorm: 124556 1 Tablet(s) Oral QPM FOR RESTLESS LEGS (REPLACES REQUIP) 02/12/2019 06/24/2019 Inactive Lexapro 10 mg tablet RxNorm: 357523 TAKE 1 TABLET EVERY DAY FOR MOO D 01/31/2019 No Stop Date Active Ativan 0.5 mg tablet RxNorm: 720475 TAKE 1 TABLET BY MO UT THREE TIMES DAILY NEEDED FOR ANXIETY 01/26/2019 04/28/2019 Inactive Ativan 0.5 mg tablet RxNorm: 669621 TAKE 1 TABLET BY MO UT THREE TIMES DAILY NEEDED FOR ANXIETY 01/05/2019 01/05/2019 Inactive Levaquin 500 mg tablet RxNorm: 765253 1 Tablet(s) Oral QD 12/25/2018 12/24/2018 Inactive Levaquin 500 mg tablet RxNorm: 749601 1 Tablet(s) Oral QD 12/25/2018 01/04/2019 Inactive baclofen 10 mg tablet RxNorm: 786545 1 Tablet(s) Oral three maico es a day 11/20/2018 01/19/2019 Inactive Ativan 0.5 mg tablet RxNorm: 819454 TAKE 1 TABLET BY MO UT THREE TIMES DAILY NEEDED FOR ANXIETY 11/20/2018 01/04/2019 Inactive gabapentin 300 mg capsule RxNorm: 112807 1 Capsule(s) O ral every night at bedtime for neuropathy 11/20/2018 12/20/2018 Inactive Lexapro 10 mg tablet RxNorm: 542103 1 Tablet(s) PO QD for mood 07/201801/30/2019 Inactive Zithromax Z-Lj 250 mg tablet RxNorm: 091767 Tablet(s) PO take as directed 11/04/2018 11/19/2018 Inactive Insulin Syringe 1 mL 29 gauge x 1/2" RxNorm: 2 s yringes daily with insulin Dx: E11.65 10/08/2018 No Stop Date Active gabapentin 300 mg capsule RxNorm: 051826 1 Capsule(s) PO QHS fo r neuropathy 09/18/2018 10/17/2018 Inactive cyclobenzaprine 5 mg tablet RxNorm: 150280 1 Tablet(s) PO TID a s needed 09/09/2018 09/08/2018 Inactive cyclobenzaprine 5 mg tablet RxNorm: 021573 1 Tablet(s) PO TID a s needed 09/09/2018 10/08/2018 Inactive prednisone 20 mg tablet RxNorm: 123496 1 Tablet(s) PO QD 09/08/2018 0 09/12/2018 Inactive Lantus Solostar U-100 Insulin 100 unit/mL (3 mL) subcu taneous pen RxNorm: 064501 55 Unit(s) SQ QAM 08/28/2018 11/03/2018 Inactive hydroxyzine HCl 25 mg tablet RxNorm: 989499 1 Tablet(s) PO QHS for itching 08/20/2018 05/12/2019 Inactive Lexapro 10 mg tablet RxNorm: 033218 1 Tablet(s) PO QD for mood 08/0210/18/2018 Inactive sumatriptan 100 mg tablet RxNorm: 626634 1 Tablet(s) PO at headache onset. May repeat 1 in two hours if headache remains. Max of 2 per 24 hours 04/02/2018 05/20/2018 Inactive Diflucan 150 mg tablet RxNorm: 604764 1 Tablet(s) PO QD 03/18/2018 Inactive Diflucan 150 mg tablet RxNorm: 855164 1 Tablet(s) PO QD 03/18/2018 Inactive Flagyl 500 mg tablet RxNorm: 082181 1 Tablet(s) PO TID 03/17/2018 Inactive Levaquin 500 mg tablet RxNorm: 145246 1 Tablet(s) PO QD 03/17/2018 Inactive Levaquin 500 mg tablet RxNorm: 462256 1 Tablet(s) PO QD 03/17/2018 Inactive Flagyl 500 mg tablet RxNorm: 053673 1 Tablet(s) PO TID 03/17/2018 Inactive ketoconazole 200 mg tablet RxNorm: 933367 1 Tablet(s) PO QD 019 03/19/2018 Inactive Celebrex 200 mg capsule RxNorm: 267360 1 Capsule(s) PO BID 02/06/2005/20/2018 Inactive tramadol 50 mg tablet RxNorm: 602187 1 Tablet(s) PO TID as needed 1 04/08/2017 05/20/2018 Inactive gabapentin 300 mg capsule RxNorm: 103144 1 Capsule(s) PO BID 201705/20/2018 Inactive Diflucan 150 mg tablet RxNorm: 547996 1 Tablet(s) PO QD 01/20/2018 Inactive pramipexole 1 mg tablet RxNorm: 744412 1 Tablet(s) PO Q PM FOR RESTLESS LEGS (REPLACES REQUIP) 01/08/2018 02/11/2019 Inactive cyclobenzaprine 10 mg tablet RxNorm: 620284 1 Tablet(s) PO TID as needed for muscle spasm 12/17/2017 05/20/2018 Inactive pramipexole 1 mg tablet RxNorm: 541178 TAKE 1 TABLET BY MOUTH ONCE DAILY IN THE EVENING FOR RESTLESS LEGS (REPLACES REQUIP) 12/04/2017 01/05/2018 Inac tive Amaryl 4 mg tablet RxNorm: 238834 1 Tablet(s) PO BID replaces 2mg 0 11/05/2017 12/16/2017 Inactive Singulair 10 mg tablet RxNorm: 283815 1 Tablet(s) PO QHS for al lergies/lungs 10/30/2017 12/16/2017 Inactive Diflucan 100 mg tablet RxNorm: 394975 1 Tablet(s) PO QD 10/23/2017 Inactive Ativan 0.5 mg tablet RxNorm: 975677 TAKE 1 TABLET BY MOUTH THRE E TIMES DAILY 08/30/2017 11/20/2018 Inactive buspirone 5 mg tablet RxNorm: 707197 1 Tablet(s) PO TID 07/11/2017 Inactive propranolol 60 mg tablet RxNorm: 119558 1 Tablet(s) PO BID repl aces 40mg dose 06/26/2017 12/16/2017 Inactive Amaryl 4 mg tablet RxNorm: 750679 1 Tablet(s) PO BID replaces 2mg 0 06/12/2017 11/05/2017 Inactive omeprazole 40 mg capsule,delayed release RxNorm: 056013 1 Capsule(s) PO BID TAKE ONE CAPSULE BY MOUTH TWICE DAILY 05/30/2017 11/25/2017 Inactive pramipexole 1 mg tablet RxNorm: 115444 1 Tablet(s) PO Q PM for restless legs--replaces requip 05/30/2017 11/25/2017 Inactive amitriptyline 50 mg tablet RxNorm: 423441 1 Tablet(s) PO QHS 201709/16/2017 Inactive Diflucan 100 mg tablet RxNorm: 983966 1 Tablet(s) PO BID 05/07/2017 0 05/20/2017 Inactive nystatin (bulk) 100 million unit powder RxNorm: Application TO P BID 05/07/2017 05/20/2018 Inactive cholestyramine (with sugar) 4 gram oral powder RxNorm: 228204 1 Unit Dose PO QD 05/07/2017 01/20/2018 Inactive Ativan 0.5 mg tablet RxNorm: 309591 TAKE ONE TABLET BY MOUTH TH REE TIMES DAILY 05/01/2017 09/02/2017 Inactive Trulicity 1.5 mg/0.5 mL subcutaneous pen injector RxNorm: 15 34465 1 Unit Dose SQ WEEKLY 02/22/2017 03/23/2017 Inactive doxycycline hyclate 100 mg capsule RxNorm: 1493669 1 Capsule(s) PO BID 01/23/2017 02/05/2017 Inactive Amaryl 4 mg tablet RxNorm: 932137 1 Tablet(s) PO BID replaces 2mg 1 03/25/2016 05/22/2017 Inactive magnesium oxide 400 mg capsule RxNorm: 569115 1 Capsule(s) PO QD 07/18/2017 Inactive Ativan 0.5 mg tablet RxNorm: 556120 TAKE ONE TABLET BY MOUTH TH REE TIMES DAILY 01/17/2017 05/01/2017 Inactive Amaryl 2 mg tablet RxNorm: 669854 1 Tablet(s) PO BID 12/27/201601/22 Inactive Amaryl 2 mg tablet RxNorm: 524004 1 Tablet(s) PO BID 12/26/201612/26 Inactive Ativan 0.5 mg tablet RxNorm: 300573 TAKE ONE TABLET BY MOUTH TH REE TIMES DAILY 12/05/2016 01/18/2017 Inactive pramipexole 1 mg tablet RxNorm: 854273 1 Tablet(s) PO Q PM for restless legs--replaces requip 11/26/2016 05/30/2017 Inactive Mobic 15 mg tablet RxNorm: 695376 1 Tablet(s) PO QD 10/08/20162016 Inactive cyclobenzaprine 5 mg tablet RxNorm: 131365 1/2- 1 Tablet(s) PO TID 10/08/2016 10/17/2016 Inactive Ativan 0.5 mg tablet RxNorm: 946154 1 Tablet(s) PO TID 09/20/201607/2016 Inactive amitriptyline 50 mg tablet RxNorm: 282937 1 Tablet(s) PO QHS 201605/30/2017 Inactive propranolol 60 mg tablet RxNorm: 929801 1 Tablet(s) PO BID repl aces 40mg dose 09/19/2016 06/26/2017 Inactive Ativan 0.5 mg tablet RxNorm: 485373 1 Tablet(s) PO TID 08/20/2016 Inactive omeprazole 40 mg capsule,delayed release RxNorm: 913257 1 Capsule(s) PO BID TAKE ONE CAPSULE BY MOUTH TWICE DAILY 08/20/2016 05/30/2017 Inactive amitriptyline 50 mg tablet RxNorm: 931589 1 Tablet(s) PO QHS 201609/18/2016 Inactive pramipexole 1 mg tablet RxNorm: 557426 1 Tablet(s) PO Q PM for restless legs--replaces requip 07/23/2016 11/25/2016 Inactive Amaryl 2 mg tablet RxNorm: 746090 1 Tablet(s) PO BID 07/23/201612/27 Inactive propranolol 40 mg tablet RxNorm: 411378 1 Tablet(s) PO BID 07/13/19 17 09/18/2016 Inactive Ativan 0.5 mg tablet RxNorm: 111860 1 Tablet(s) PO QID 06/19/2016 Inactive Amaryl 2 mg tablet RxNorm: 597290 1 Tablet(s) PO BID 06/19/201607/22 Inactive Ativan 0.5 mg tablet RxNorm: 214576 1 Tablet(s) PO QID 06/19/2016 Inactive buspirone 5 mg tablet RxNorm: 220896 1 Tablet(s) PO TID 06/19/2016 Inactive Ativan 0.5 mg tablet RxNorm: 281636 1 Tablet(s) PO BID 05/24/2016 Inactive buspirone 5 mg tablet RxNorm: 890225 1 Tablet(s) PO TID 05/23/2016 Inactive Macrobid 100 mg capsule RxNorm: 334595 1 Capsule(s) PO QOD 05/03/19 17 10/07/2016 Inactive pramipexole 1 mg tablet RxNorm: 340255 Tablet(s) 1 Tabl et(s) PO QPM for restless legs--replaces requip 04/26/2016 06/24/2016 Inactive propranolol 40 mg tablet RxNorm: 895986 TAKE ONE TABLET BY MOUT H TWICE DAILY 04/26/2016 06/24/2016 Inactive Detrol LA 4 mg capsule,extended release RxNorm: 743439 1 Capsul e(s) PO QHS 04/03/2016 05/02/2016 Inactive prednisone 20 mg tablet RxNorm: 767328 1 Tablet(s) PO QD 02/29/2016 0 03/04/2016 Inactive Actos 30 mg tablet RxNorm: 769536 TAKE ONE TABLET BY MOUTH ONCE DAILY 02/27/2016 12/19/2016 Inactive clindamycin 300 mg capsule RxNorm: 321260 1 Capsule(s) PO TID 02/0102/08/2016 Inactive Flagyl 500 mg tablet RxNorm: 915119 1 Tablet(s) PO BID 02/02/201609/2015 Inactive omeprazole 40 mg capsule,delayed release RxNorm: 147831 TAKE ONE CAPSULE BY MOUTH TWICE DAILY 01/15/2016 07/12/2016 Inactive gabapentin 300 mg capsule RxNorm: 966277 1 Capsule(s) PO QAM an d 2 po q HS 01/05/2016 06/18/2016 Inactive gabapentin 300 mg capsule RxNorm: 204848 1 Capsule(s) P O BID 1 Capsule(s) PO QHS 12/05/2015 01/04/2016 Inactive cyclobenzaprine 10 mg tablet RxNorm: 855557 1 Tablet(s) PO TID for spasm as needed for muscle spasm 12/05/2015 06/18/2016 Inactive ciprofloxacin 250 mg tablet RxNorm: 030343 1 Tablet(s) PO BID 12/0412/14/2015 Inactive pramipexole 1 mg tablet RxNorm: 498728 Tablet(s) 1 Tabl et(s) PO QPM for restless legs--replaces requip 11/07/2015 11/26/2016 Inactive Januvia 100 mg tablet RxNorm: 124372 1 Tablet(s) PO QD 10/26/201504/2015 Inactive propranolol 40 mg tablet RxNorm: 749705 TAKE ONE TABLET BY MOUT H TWICE DAILY 10/25/2015 04/21/2016 Inactive gabapentin 300 mg capsule RxNorm: 146830 1 Capsule(s) PO QHS 201512/04/2015 Inactive Cipro 500 mg tablet RxNorm: 764156 1 Tablet(s) PO BID 10/05/2015 0811/2015 Inactive pramipexole 1 mg tablet RxNorm: 018617 Tablet(s) 1 Tabl et(s) PO QPM for restless legs--replaces requip 10/04/2015 11/02/2015 Inactive propranolol 40 mg tablet RxNorm: 072253 TAKE ONE TABLET BY MOUT H TWICE DAILY 09/26/2015 10/24/2015 Inactive Amaryl 2 mg tablet RxNorm: 760296 1 Tablet(s) PO QD 09/15/20152016 Inactive gabapentin 300 mg capsule RxNorm: 761260 1 Capsule(s) PO QHS 201510/14/2015 Inactive buspirone 5 mg tablet RxNorm: 845622 1 Tablet(s) PO TID 09/15/2015 Inactive pramipexole 1 mg tablet RxNorm: 445580 Tablet(s) 1 Tabl et(s) PO QPM for restless legs--replaces requip 09/08/2015 10/03/2015 Inactive pramipexole 1 mg tablet RxNorm: 008292 1 Tablet(s) PO Q PM for restless legs--replaces requip 08/08/2015 09/08/2015 Inactive Amaryl 2 mg tablet RxNorm: 837513 1 Tablet(s) PO QD 07/07/20152015 Inactive pramipexole 1 mg tablet RxNorm: 279915 1 Tablet(s) PO Q PM for restless legs--replaces requip 07/05/2015 08/03/2015 Inactive ropinirole 2 mg tablet RxNorm: 119182 TAKE ONE TABLET BY MOUTH TWICE DAILY 05/09/2015 09/14/2015 Inactive Diflucan 100 mg tablet RxNorm: 092821 1 Tablet(s) PO QD 03/30/2015 Inactive propranolol 40 mg tablet RxNorm: 245962 1 Tablet(s) PO BID 02/24/20 15 08/21/2015 Inactive [SAVINGS FOR UNINSURED PATIE NTS -- BIN:643644, PCN: ASPROD1, Group: AME08, ID# [id number], Process claim through [employer], for questions: . THIS IS NOT INSURANCE.] Flagyl 500 mg tablet RxNorm: 770407 1 Tablet(s) PO BID 02/03/201502/2015 Inactive Cipro 500 mg tablet RxNorm: 807157 1 Tablet(s) PO BID 02/03/201502/01 Inactive Carafate 1 gram tablet RxNorm: 079008 1 Tablet(s) PO QID make i nto slurry 02/03/2015 09/14/2015 Inactive ondansetron HCl 4 mg tablet RxNorm: 509864 1 Tablet(s) PO Q4H as needed for nausea 12/29/2014 01/04/2016 Inactive Diflucan 100 mg tablet RxNorm: 311899 1 Tablet(s) PO QD 12/29/2014 Inactive Keflex 500 mg capsule RxNorm: 771457 1 Capsule(s) PO TID 12/29/2014 1 03/09/2014 Inactive omeprazole 40 mg capsule,delayed release RxNorm: 919608 1 Capsu le(s) PO BID 12/27/2014 12/21/2015 Inactive [SAVINGS FOR UNINSUR ED PATIENTS -- BIN:123979, PCN: ASPROD1, Group: AME08, ID# [id number], Process claim through [employer], for questions: . THIS IS NOT INSURANCE.] ropinirole 2 mg tablet RxNorm: 188773 1 Tablet(s) PO BID 09/29/2014 0 03/27/2015 Inactive [SAVINGS FOR UNINSURED PATIENTS -- BIN:0 42769, PCN: ASPROD1, Group: AME08, ID# [id number], Process claim through [employer], for questions: . THIS IS NOT INSURANCE.] buspirone 5 mg tablet RxNorm: 900504 1 Tablet(s) PO TID 09/17/2014 Inactive ropinirole 2 mg tablet RxNorm: 861461 1 Tablet(s) PO BID 09/02/2014 0 09/28/2014 Inactive [SAVINGS FOR UNINSURED PATIENTS -- BIN:0 07678, PCN: ASPROD1, Group: AME08, ID# [id number], Process claim through [employer], for questions: . THIS IS NOT INSURANCE.] Zyrtec 10 mg tablet RxNorm: 5908711 1 Tablet(s) PO QD 09/02/201412/02 Inactive propranolol 40 mg tablet RxNorm: 750415 1 Tablet(s) PO BID 07/21/19 15 02/23/2015 Inactive [SAVINGS FOR UNINSURED PATIE NTS -- BIN:246486, PCN: ASPROD1, Group: AME08, ID# [id number], Process claim through [employer], for questions: . THIS IS NOT INSURANCE.] ropinirole 2 mg tablet RxNorm: 626142 1 Tablet(s) PO QHS 05/14/2014 0 09/01/2014 Inactive [SAVINGS FOR UNINSURED PATIENTS -- BIN:0 28464, PCN: ASPROD1, Group: AME08, ID# [id number], Process claim through [employer], for questions: . THIS IS NOT INSURANCE.] cyclobenzaprine 10 mg tablet RxNorm: 767430 1 Tablet(s) PO QHS for spasm 04/06/2014 09/01/2014 Inactive ipratropium-albuterol 0.5 mg-3 mg(2.5 mg base)/3 mL ne bulization soln RxNorm: 7074847 1 Unit Dose INH Q4H 03/16/2014 No Stop Date Active [SAVINGS FOR UNINSURED PATIENTS -- BIN:423727, PCN: ASPROD1, Group: AME08, ID# [id number], Process claim through [employer], for questions: . THIS IS NOT INSURANCE.] prednisone 20 mg tablet RxNorm: 934279 1 Tablet(s) PO BID 03/09/2014 03/15/2014 Inactive [SAVINGS FOR UNINSURED PATIENTS -- BIN:0 18046, PCN: ASPROD1, Group: AME08, ID# [id number], Process claim through [employer], for questions: . THIS IS NOT INSURANCE.] ipratropium-albuterol 0.5 mg-3 mg(2.5 mg base)/3 mL ne bulization soln RxNorm: 7605035 1 Unit Dose INH Q4H 03/09/2014 03/15/2014 Inactive [SAVINGS FOR UNINSURED PATIENTS -- BIN:129891, PCN: ASPROD1, Group: AME08, ID# [id number], Process claim through [employer], for questions: . THIS IS NOT INSURANCE.] Levaquin 500 mg tablet RxNorm: 233812 1 Tablet(s) PO QD 03/09/2014 Inactive [SAVINGS FOR UNINSURED PATIENTS -- BIN:0 00562, PCN: ASPROD1, Group: AME08, ID# [id number], Process claim through [employer], for questions: . THIS IS NOT INSURANCE.] Carafate 1 gram tablet RxNorm: 322524 1 Tablet(s) PO AC & HS ma ke into slurry 02/09/2014 09/01/2014 Inactive [SAVINGS FOR UNINSUR ED PATIENTS -- BIN:491051, PCN: ASPROD1, Group: AME08, ID# [id number], Process claim through [employer], for questions: . THIS IS NOT INSURANCE.] Fioricet 50 mg-300 mg-40 mg capsule RxNorm: 0411978 1-2 Capsule(s) PO Q4H as needed for headache --max of 6 a day 02/09/2014 09/01/2014 Inactive [SAVINGS FOR UNINSURED PATIENTS -- BIN:252741, PCN: ASPROD1, Group: AME08, ID# [id number], Process claim through [employer], for questions: . THIS IS NOT INSURANCE.] propranolol 40 mg tablet RxNorm: 858689 1 Tablet(s) PO BID 12/08/19 14 06/04/2014 Inactive [SAVINGS FOR UNINSURED PATIE NTS -- BIN:552603, PCN: ASPROD1, Group: AME08, ID# [id number], Process claim through [employer], for questions: . THIS IS NOT INSURANCE.] buspirone 5 mg tablet RxNorm: 882468 1 Tablet(s) PO TID 12/02/2013 Inactive omeprazole 40 mg capsule,delayed release RxNorm: 561693 1 Capsu le(s) PO BID 11/25/2013 11/19/2014 Inactive [SAVINGS FOR UNINSUR ED PATIENTS -- BIN:642249, PCN: ASPROD1, Group: AME08, ID# [id number], Process claim through [employer], for questions: . THIS IS NOT INSURANCE.] ropinirole 2 mg tablet RxNorm: 832457 1 Tablet(s) PO QHS 11/10/2013 0 05/08/2014 Inactive [SAVINGS FOR UNINSURED PATIENTS -- BIN:0 65540, PCN: ASPROD1, Group: AME08, ID# [id number], Process claim through [employer], for questions: . THIS IS NOT INSURANCE.] Cipro 500 mg tablet RxNorm: 375707 1 Tablet(s) PO BID 10/21/201312/03 Inactive [SAVINGS FOR UNINSURED PATIENTS -- BIN:0 37597, PCN: ASPROD1, Group: AME08, ID# [id number], Process claim through [employer], for questions: . THIS IS NOT INSURANCE.] hydroxyzine HCl 25 mg tablet RxNorm: 272420 1 Tablet(s) PO Q4-6 H as needed 10/05/2013 01/04/2016 Inactive [SAVINGS FOR UNINSUR ED PATIENTS -- BIN:778015, PCN: ASPROD1, Group: AME08, ID# [id number], Process claim through [employer], for questions: . THIS IS NOT INSURANCE.] triamcinolone acetonide 0.1 % topical cream RxNorm: 4784034 Appl ication TOP BID 10/05/2013 09/01/2014 Inactive [SAVINGS FOR UNINSUR ED PATIENTS -- BIN:623487, PCN: ASPROD1, Group: AME08, ID# [id number], Process claim through [employer], for questions: . THIS IS NOT INSURANCE.] albuterol sulfate HFA 90 mcg/actuation aerosol inhaler RxNor m: 3671980 2 Puff(s) INH Q4H as needed for cough 10/01/2013 12/22/2013 Inactive [MAKSIM INGS FOR UNINSURED PATIENTS -- BIN:389398, PCN: ASPROD1, Group: AME08, ID# [id number], Process claim through [employer], for questions: . THIS IS NOT INSURANCE.] propranolol 40 mg tablet RxNorm: 815922 1 Tablet(s) PO BID 09/02/19 14 11/29/2013 Inactive [SAVINGS FOR UNINSURED PATIE NTS -- BIN:585002, PCN: ASPROD1, Group: AME08, ID# [id number], Process claim through [employer], for questions: . THIS IS NOT INSURANCE.] propranolol 40 mg tablet RxNorm: 801388 1 Tablet(s) PO BID 08/05/19 14 08/31/2013 Inactive [SAVINGS FOR UNINSURED PATIE NTS -- BIN:445990, PCN: ASPROD1, Group: AME08, ID# [id number], Process claim through [employer], for questions: . THIS IS NOT INSURANCE.] Toprol XL 50 mg tablet,extended release RxNorm: 925465 1 Tablet (s) PO QHS 07/23/2013 08/03/2013 Inactive Macrobid 100 mg capsule RxNorm: 133658 1 Capsule(s) PO BID 07/04/19 14 07/09/2013 Inactive Toprol XL 50 mg tablet,extended release RxNorm: 304290 1 Tablet (s) PO QHS 05/28/2013 06/26/2013 Inactive ciprofloxacin 500 mg tablet RxNorm: 670816 1 Tablet(s) PO BID 05/2706/02/2013 Inactive Bystolic 5 mg tablet RxNorm: 767277 1 Tablet(s) PO QD 05/27/201305/03 Inactive ropinirole 2 mg tablet RxNorm: 067062 1 Tablet(s) PO QHS 04/22/2013 0 11/09/2013 Inactive Cipro 250 mg tablet RxNorm: 580685 1 Tablet(s) PO BID 04/06/201311/2013 Inactive ropinirole 2 mg tablet RxNorm: 584804 1 Tablet(s) PO QHS 02/17/2013 0 04/21/2013 Inactive Amaryl 2 mg tablet RxNorm: 087613 1 Tablet(s) PO QAM 11/11/201211/10 Inactive Amaryl 2 mg tablet RxNorm: 828818 1 Tablet(s) PO QAM 11/11/201204/05 Inactive omeprazole 40 mg capsule,delayed release RxNorm: 980379 1 Capsu le(s) PO BID 08/14/2012 08/08/2013 Inactive Bystolic 5 mg tablet RxNorm: 458191 1 Tablet(s) PO QD 08/14/201205/03 Inactive propranolol 60 mg tablet RxNorm: 908376 Tablet(s) PO TAKE 1 TAB LET TWICE DAILY 08/01/2012 09/01/2012 Inactive Bystolic 5 mg tablet RxNorm: 352040 1 Tablet(s) PO QD 07/21/201207/02 Inactive Bystolic 5 mg tablet RxNorm: 366571 1 Tablet(s) PO QD 07/21/201207/03 Inactive Prilosec 40 mg capsule,delayed release RxNorm: 841396 1 Capsule (s) PO BID 06/24/2012 07/21/2012 Inactive buspirone 10 mg tablet RxNorm: 599437 1 Tablet(s) PO TID 05/08/2012 0 05/23/2016 Inactive Valium 10 mg tablet RxNorm: 906297 1 Tablet(s) PO BID 04/02/201207/03 Inactive Endocet 10 mg-325 mg tablet RxNorm: 0374811 1 Tablet(s) PO QID 03/0607/21/2012 Inactive as needed for severe pain Valium 10 mg tablet RxNorm: 060468 1 Tablet(s) PO BID 02/27/2012 No S top Date Active Endocet 10 mg-325 mg tablet RxNorm: 7884735 1 Tablet(s) PO QID 02/0203/27/2012 Inactive as needed for severe pain Endocet 10 mg-325 mg tablet RxNorm: 5643787 1 Tablet(s) PO QID 01/0302/26/2012 Inactive as needed for severe pain Valium 10 mg tablet RxNorm: 861662 1 Tablet(s) PO BID 01/29/2012 No S top Date Active Protonix 40 mg tablet,delayed release RxNorm: 049737 1 Tablet(s ) PO QD 01/28/2012 07/21/2012 Inactive metformin ER 500 mg tablet,extended release 24 hr RxNorm: 86 0977 1 Tablet(s) PO QD 12/26/2011 07/20/2012 Inactive Trazadone 150 mg Tablet RxNorm: 1 Tablet(s) PO QHS prn sleep 1 04/23/2012 Inactive Endocet 10 mg-325 mg tablet RxNorm: 3445510 1 Tablet(s) PO QID 12/0301/24/2012 Inactive as needed for severe pain Nexium 40 mg capsule,delayed release RxNorm: 632319 1 Capsule(s ) PO QD 12/26/2011 01/27/2012 Inactive Symbicort 160 mcg-4.5 mcg/actuation HFA Aerosol Inhaler RxNo rm: 4120124 2 Puff(s) INH BID 12/04/2011 07/21/2012 Inactive Endocet 10 mg-325 mg tablet RxNorm: 3396456 1 Tablet(s) PO QID 11/0312/25/2011 Inactive as needed for severe pain metformin ER 500 mg tablet,extended release 24 hr RxNorm: 86 0977 1 Tablet(s) PO QD 11/20/2011 12/19/2011 Inactive metformin ER 500 mg tablet,extended release 24 hr RxNorm: 86 0977 1 Tablet(s) PO QD 11/20/2011 11/19/2011 Inactive amitriptyline 100 mg tablet RxNorm: 482399 Tablet(s) PO QHS 1 a nd 1/2 tabs QHS 11/12/2011 11/13/2011 Inactive Valium 10 mg tablet RxNorm: 286054 1 Tablet(s) PO BID 11/09/2011 No S top Date Active Endocet 10 mg-325 mg tablet RxNorm: 6102728 1 Tablet(s) PO QID 10/0211/14/2011 Inactive as needed for severe pain Aricept 10 mg Tab RxNorm: 724404 1 Tablet(s) PO QD 10/05/2011 013 Inactive Valium 10 mg tablet RxNorm: 610265 1 Tablet(s) PO BID 10/05/2011 No S top Date Active Endocet 10 mg-325 mg Tab RxNorm: 1221552 1 Tablet(s) PO QID 012 10/09/2011 Inactive as needed for severe pain Aricept 10 mg Tab RxNorm: 427072 1 Tablet(s) PO QD 08/14/2011 012 Inactive Endocet 10 mg-325 mg Tab RxNorm: 3125370 1 Tablet(s) PO QID 012 08/31/2011 Inactive as needed for severe pain Valium 10 mg Tab RxNorm: 995242 1 Tablet(s) PO BID 08/02/2011 No Stop Date Active propranolol 60 mg tablet RxNorm: 902023 1 Tablet(s) PO BID 07/26/19 12 09/11/2011 Inactive amitriptyline 100 mg tablet RxNorm: 155835 Tablet(s) PO QHS 1 a nd / tabs QHS 06/20/2011 09/11/2011 Inactive buspirone 10 mg tablet RxNorm: 369544 1 Tablet(s) PO BID 06/18/2011 0 09/15/2011 Inactive propranolol 60 mg Tab RxNorm: 927602 1 Tablet(s) PO BID 06/18/2011 Inactive gabapentin 800 mg Tab RxNorm: 516091 1 Tablet(s) PO BID 06/18/2011 Inactive ropinirole 2 mg tablet RxNorm: 718624 1 Tablet(s) PO QHS 05/29/2011 0 08/26/2011 Inactive trimethoprim 100 mg Tab RxNorm: 434901 1 Tablet(s) PO QHS 05/29/2011 07/21/2012 Inactive Endocet 10 mg-325 mg Tab RxNorm: 3987819 1 Tablet(s) PO QID 012 2011 Inactive as needed for severe pain Valium 10 mg Tab RxNorm: 419108 1 Tablet(s) PO QHS N eed to take med as prescribed. this is a 40 day RX. No early fills. 05/17/2011 05/20/2018 Inactive propranolol 60 mg Tab RxNorm: 442023 1 Tablet(s) PO BID 04/16/2011 Inactive Neurontin 800 mg Tab RxNorm: 003954 1 Tablet(s) PO QHS 04/05/201103/2011 Inactive Endocet 10 mg-325 mg Tab RxNorm: 4290908 1 Tablet(s) PO QID 012 05/02/2011 Inactive as needed for severe pain oxycodone-acetaminophen 10 mg-325 mg tablet RxNorm: 7911060 1 Ta blet(s) PO Q4H 03/28/2011 05/19/2012 Inactive Valium 10 mg Tab RxNorm: 981633 1 Tablet(s) PO QHS 03/28/2011 012 Inactive buspirone 10 mg Tab RxNorm: 310392 1 Tablet(s) PO BID 03/27/201106/02 Inactive propranolol 60 mg Tab RxNorm: 394223 1 Tablet(s) PO BID 03/19/2011 Inactive Klor-Con M20 20 mEq Tab RxNorm: 2276043 1 Tablet(s) PO QD 03/19/2011 07/21/2012 Inactive Aricept 10 mg Tab RxNorm: 476974 1 Tablet(s) PO QD 02/27/2011 012 Inactive propranolol 60 mg Tab RxNorm: 123952 1 Tablet(s) PO BID 02/19/2011 Inactive omeprazole 40 mg capsule,delayed release RxNorm: 587743 1 Capsu le(s) PO BID 01/24/2011 05/23/2011 Inactive clindamycin 300 mg capsule RxNorm: 803990 1 Capsule(s) PO TID 01/2402/02/2011 Inactive propranolol 60 mg Tab RxNorm: 555936 1 Tablet(s) PO BID 01/22/2011 No Stop Date Active nystatin 100,000 unit/g Topical Cream RxNorm: 424850 Applicatio n TOP BID 01/15/2011 01/14/2011 Inactive to rash for 2-4 week s Diflucan 200 mg Tab RxNorm: 664550 1 Tablet(s) PO QD 01/15/201101/28 Inactive buspirone 10 mg Tab RxNorm: 542515 1 Tablet(s) PO BID 01/08/201103/05 Inactive Valium 10 mg Tab RxNorm: 681642 1 Tablet(s) PO QHS 01/05/2011 012 Inactive Diflucan 200 mg Tab RxNorm: 114905 1 Tablet(s) PO QD 01/01/201101/14 Inactive Diflucan 200 mg Tab RxNorm: 252364 1 Tablet(s) PO QD 12/18/201012/31 Inactive Valium 10 mg Tab RxNorm: 435291 1 Tablet(s) PO QHS 12/12/2010 011 Inactive Diflucan 200 mg Tab RxNorm: 028966 1 Tablet(s) PO QD 12/07/201012/18 Inactive Aricept 10 mg Tab RxNorm: 348837 1 Tablet(s) PO QD 11/20/2010 011 Inactive ropinirole 1 mg Tab RxNorm: 607869 1 Tablet(s) PO QHS 11/16/201005/03 Inactive enalapril maleate 5 mg Tab RxNorm: 177249 1 Tablet(s) PO QD 011 05/20/2018 Inactive buspirone 10 mg Tab RxNorm: 305250 1 Tablet(s) PO BID 11/16/201012/02 Inactive Valium 10 mg Tab RxNorm: 552552 1 Tablet(s) PO QHS 11/07/2010 011 Inactive Pyridium 100 mg Tab RxNorm: 2966759 1 Tablet(s) PO TID 11/02/201004/2010 Inactive Macrobid 100 mg Cap RxNorm: 7403227 1 Capsule(s) PO BID 11/02/2010 Inactive buspirone 10 mg Tab RxNorm: 208073 1 Tablet(s) PO QHS 10/18/201005/02 Inactive propranolol 60 mg Tab RxNorm: 055117 1 Tablet(s) PO BID 09/18/2010 Inactive Valium 10 mg Tab RxNorm: 145806 1 Tablet(s) PO QHS 09/05/2010 011 Inactive Aricept 10 mg Tab RxNorm: 970049 1 Tablet(s) PO QD 08/14/2010 011 Inactive Valium 10 mg Tab RxNorm: 017592 1 Tablet(s) PO QHS 06/26/2010 011 Inactive ropinirole 1 mg Tab RxNorm: 663920 1 Tablet(s) PO QHS 06/19/201010/02 Inactive omeprazole 40 mg Cap, delayed release RxNorm: 579472 1 Capsule( s) PO QD 06/07/2010 10/04/2010 Inactive Endocet 10 mg-325 mg Tab RxNorm: 9927979 1 Tablet(s) PO QID as needed for severe pain 06/07/2010 03/07/2011 Inactive Endocet 10 mg-325 mg Tab RxNorm: 1833218 1 Tablet(s) PO QID as needed for severe pain 05/04/2010 06/02/2010 Inactive Valium 10 mg Tab RxNorm: 738810 1 Tablet(s) PO QHS 05/01/2010 011 Inactive propranolol 60 mg Tab RxNorm: 427676 1 Tablet(s) PO BID 04/03/2010 Inactive Valium 10 mg Tab RxNorm: 109053 1 Tablet(s) PO QHS 03/28/2010 011 Inactive omeprazole 40 mg Cap, Delayed Release RxNorm: 466835 1 Capsule( s) PO QD 03/28/2010 06/06/2010 Inactive Endocet 10 mg-325 mg Tab RxNorm: 7800424 1 Tablet(s) PO QID prn ari n 03/27/2010 05/20/2018 Inactive Valium 10 mg Tab RxNorm: 899707 1 Tablet(s) PO QHS 02/20/2010 011 Inactive Diflucan 100 mg Tab RxNorm: 029854 1 Tablet(s) PO BID 01/23/201003/2009 Inactive Diflucan 100 mg Tab RxNorm: 588032 1 Tablet(s) PO BID 01/05/201001/02 Inactive Aricept 10 mg Tab RxNorm: 580346 1 Tablet(s) PO QD 12/01/2009 011 Inactive OxyContin 20 mg 12 hr Tab RxNorm: 0799476 1 Tablet(s) PO BID 200904/05/2010 Inactive oxycodone-acetaminophen 10 mg-325 mg Tab RxNorm: 2643697 1 Table t(s) PO Q4H 11/22/2009 11/26/2009 Inactive Phenergan 25 mg Tab RxNorm: 659997 1 Tablet(s) PO PRN MIGRAINE 11/0303/07/2011 Inactive Demerol 100 mg Tab RxNorm: 996187 1 Tablet(s) PO PRN MIGRAINE 11/2203/07/2011 Inactive Oxycodone-Acetaminophen 10 mg-325 mg Tab RxNorm: 5661007 1 Table t(s) PO Q4H 10/11/2009 10/15/2009 Inactive Percocet 10 mg-325 mg Tab RxNorm: 0390442 1 Tablet(s) PO Q4H 200910/24/2009 Inactive propranolol 60 mg Tab RxNorm: 745901 1 Tablet(s) PO BID 08/29/2009 Inactive Valium 10 mg Tab RxNorm: 568740 1 Tablet(s) PO QHS 08/16/2009 010 Inactive Keflex 500 mg Cap RxNorm: 577626 1 Capsule(s) PO BID 07/25/200907/31 Inactive Hydroxyzine 25 mg Tab RxNorm: 695473 1 Tablet(s) PO TID 07/25/2009 Inactive Prednisone 20 mg Tab RxNorm: 930061 1 Tablet(s) PO BID 07/25/2009 Inactive Demerol 100 mg Tab RxNorm: 792974 1 Tablet(s) PO PRN MIGRAINE 07/25 No Stop Date Active Ropinirole 1 mg Tab RxNorm: 736564 1 Tablet(s) PO HS 07/20/200902/14 Inactive Valium 10 mg Tab RxNorm: 027603 1 Tablet(s) PO QHS 07/18/2009 010 Inactive Endocet 10 mg-325 mg Tab RxNorm: 4719026 1 Tablet(s) PO TID 010 07/07/2009 Inactive Demerol 100 mg Tab RxNorm: 645807 1 Tablet(s) PO PRN MIGRAINE 06/08 No Stop Date Active Ropinirole 1 mg Tab RxNorm: 368124 1 Tablet(s) PO HS 05/16/200907/14 Inactive ipratropium-albuterol 0.5 mg-3 mg(2.5 mg base)/3 mL ne bulization soln RxNorm: 5778411 1 Unit Dose INH Q4H as needed No Start Date Active MagOx 400 mg (241.3 mg magnesium) tablet RxNorm: 790962 1 Table t(s) PO BID No Start Date Active Vitamin B12 1000mcg Tablet RxNorm: 1 Tablet(s) PO QD No Start Date Active Vitamin D3 5,000 unit tablet RxNorm: 600967 1 Tablet(s) PO QD No Star t Date Active Tylenol Arthritis Pain 650 mg tablet,extended release RxNorm : 8837854 1 Tablet(s) PO Q4H No Start Date Active Lotrimin AF 2 % topical powder RxNorm: 421415 1 Application TOP BID No Start Date Active enalapril maleate 5 mg Tab RxNorm: 540367 1 Tablet(s) PO QD No Star t Date 07/20/2012 Inactive Demerol 100 mg Tab RxNorm: 797894 Tablet(s) PO PRN MIGRAINE No Star t Date 06/02/2009 Inactive metformin 500 mg tablet RxNorm: 367778 1 Tablet(s) PO QD No Start D ate 04/05/2013 Inactive Breo Ellipta 100 mcg-25 mcg/dose powder for inhalation RxNor m: 6240265 1 Puff(s) INH BID No Start Date 01/04/2016 Inactive Mag-Oxide 400 mg Tab RxNorm: 695038 1 Tablet(s) PO QD No Start Date 0 07/21/2012 Inactive Cipro 500 mg Tab RxNorm: 943402 1 Tablet(s) PO QD No Start Date 04/05 Inactive Ativan 0.5 mg tablet RxNorm: 254708 1 Tablet(s) PO TID as needed No Start Date 05/06/2019 Inactive melatonin 3 mg tablet RxNorm: 544461 2 Tablet(s) PO QHS No Start Da te 08/19/2018 Inactive buspirone 10 mg Tab RxNorm: 604041 1 Tablet(s) PO QD No Start Date Inactive sucralfate 100 mg/mL Oral Susp RxNorm: 758553 2 Teaspoon(s) PO QID No Start Date 07/21/2012 Inactive hydrocodone 5 mg-acetaminophen 325 mg tablet RxNorm: 443442 1 Tablet(s) PO Q4H as needed No Start Date 08/19/2018 Inactive Amaryl 2 mg tablet RxNorm: 184357 1 Tablet(s) PO BID No Start Date Inactive OxyContin 20 mg 12 hr Tab RxNorm: 6555900 1 Tablet(s) PO BID No Sta rt Date 11/27/2009 Inactive propranolol 40 mg tablet RxNorm: 763651 1 Tablet(s) PO QID No Start Date 01/19/2018 Inactive Trazadone 150 mg Tablet RxNorm: 1-2 Tablet(s) PO QHS prn sleep No Start Date 08/09/2010 Inactive propranolol 60 mg Tab RxNorm: 119308 1/2 Tablet(s) PO BID No Start Date 01/21/2011 Inactive insulin NPH and regular human subcutaneous RxNorm: 7259699 subcu taneous No Start Date 11/20/2018 Inactive Ativan 0.5 mg tablet RxNorm: 711396 1 Tablet(s) PO QID No Start Date 06/18/2016 Inactive Vasotec 5 mg Tab RxNorm: 657418 1 Tablet(s) PO BID No Start Date 06/2011 Inactive Toprol XL 50 mg tablet,extended release RxNorm: 688466 1 Tablet (s) PO BID No Start Date 04/05/2013 Inactive Ativan 0.5 mg tablet RxNorm: 637022 1 Tablet(s) PO TID No Start Date 05/25/2016 Inactive Klor-Con M20 20 mEq Tab RxNorm: 3561587 1 Tablet(s) PO QD No Start Date 03/19/2011 Inactive sumatriptan 100 mg tablet RxNorm: 593425 1 Tablet(s) PO at headache onset--repeat in 2hrs if remains No Start Date 07/21/2012 Inactive propranolol 60 mg Tab RxNorm: 115040 1 Tablet(s) PO BID No Start Da te 08/28/2009 Inactive Cholestyramine Light 4 gram Oral Powder RxNorm: 0379861 1 Unit Dose PO QD in water No Start Date 07/21/2012 Inactive nystatin 100,000 unit/g Topical Powder RxNorm: 871457 Applicati on TOP BID No Start Date 07/21/2012 Inactive vitamin [id number] acid sublingual RxNorm: sublingual No Start Date 07/05/2013 Inactive cyclobenzaprine 5 mg tablet RxNorm: 138559 1/2-1 Tablet (s) PO TID as needed for muscle spasm No Start Date 07/18/2017 Inactive tramadol 50 mg tablet RxNorm: 988494 2 Tablet(s) PO TID as need ed for pain No Start Date 09/01/2014 Inactive aspirin 81 mg Tab RxNorm: 928796 1 Tablet(s) PO QOD No Start Date 04/2013 Inactive Vitamin B12 1000mcg Tablet RxNorm: 1 Tablet(s) PO QD No Start Date 07/18/2017 Inactive cholestyramine (with sugar) 4 gram oral powder RxNorm: 78166 3 1 Unit(s) PO QD as needed No Start Date 05/20/2018 Inactive ProAir HFA 90 mcg/Actuation Aerosol Inhaler RxNorm: 230096 2 Puff(s) INH Q4H prn shortness of breath No Start Date 07/21/2012 Inactive pravastatin 10 mg Tab RxNorm: 951736 1 Tablet(s) PO QD No Start Date 07/21/2012 Inactive gabapentin 800 mg Tab RxNorm: 823672 1 Tablet(s) PO BID No Start Da te 06/03/2011 Inactive Endocet 10 mg-325 mg Tab RxNorm: 3824990 1 Tablet(s) PO TID No Star t Date 06/02/2009 Inactive Naproxen 500 mg Tab RxNorm: 404930 1 Tablet(s) PO BID No Start Date 0 04/05/2010 Inactive Valium 10 mg Tab RxNorm: 640519 1 Tablet(s) PO BID No Start Date 07/04 Inactive enalapril maleate 5 mg Tab RxNorm: 242503 1 Tablet(s) PO QD No Star t Date 11/15/2010 Inactive doxepin 10 mg capsule RxNorm: 5264197 2 Capsule(s) PO QHS No Start Date 09/17/2018 Inactive MS Contin 15 mg Tab RxNorm: 892392 1 Tablet(s) PO BID No Start Date 0 09/18/2010 Inactive buspirone 5 mg tablet RxNorm: 884329 1 Tablet(s) PO TID No Start Da te 12/01/2013 Inactive [place] 3 Fish Oil Cap RxNorm: 1 Capsule(s) PO QD No Start Date 07/03 Inactive enalapril maleate 5 mg Tab RxNorm: 805725 1/2 Tablet(s) PO QD No St art Date 03/07/2011 Inactive Lyrica 75 mg capsule RxNorm: 115569 1 Capsule(s) PO QHS No Start Da te 02/08/2014 Inactive Lopressor 100 mg tablet RxNorm: 943077 1 Tablet(s) PO BID No Start Date 06/08/2018 Inactive Lantus Solostar U-100 Insulin 100 unit/mL (3 mL) subcu taneous pen RxNorm: 202627 45 Unit(s) SQ QAM No Start Date 05/20/2018 Inactive aspirin 81 mg tablet RxNorm: 626609 1 Tablet(s) PO QD No Start Date 0 09/14/2015 Inactive diltiazem CD 240 mg capsule,extended release 24 hr RxNorm: 8 39609 1 Capsule(s) PO QD No Start Date 05/25/2019 Inactive insulin NPH isophane U-100 human subcutaneous RxNorm: 148550 beckwith bcutaneous No Start Date 04/20/2019 Inactive sumatriptan 100 mg tablet RxNorm: 738860 1 Tablet(s) PO at headache onset. May repeat 1 in two hours if headache remains. Max of 2 per 24 hours No Start Date 04/01/2018 Inactive gabapentin 300 mg capsule RxNorm: 150578 1 Capsule(s) PO QHS No Sta rt Date 02/04/2018 Inactive Topamax 25 mg Tab RxNorm: 124307 Oral No Start Date 03/07/2011 In active Senokot-S 8.6 mg-50 mg Tab RxNorm: 5369623 1 Tablet(s) PO QD No Sta rt Date 03/07/2011 Inactive metformin ER 500 mg 24 hr tablet,extended release RxNorm: 18 02625 1 Tablet(s) PO QD No Start Date 05/20/2018 Inactive Symbicort 80 mcg-4.5 mcg/actuation HFA Aerosol Inhaler RxNor m: 5544402 2 Puff(s) INH BID No Start Date 04/05/2013 Inactive metoprolol tartrate 25 mg tablet RxNorm: 780063 1 Tablet(s) PO BID No Start Date 05/20/2019 Inactive propranolol 60 mg Tab RxNorm: 797996 1/2 Tablet(s) PO BID No Start Date 07/21/2012 Inactive metformin ER 500 mg 24 hr tablet,extended release RxNorm: 18 60589 2 Tablet(s) PO QD No Start Date 12/16/2017 Inactive Insulin Syringe 1 mL 29 gauge x 1/2" RxNorm: 2 s yringes daily with insulin Dx: E11.65 No Start Date 10/07/2018 Inactive Amitriptyline 75 mg Tab RxNorm: 980449 1 Tablet(s) PO QHS No Start Date 10/23/2009 Inactive donepezil 10 mg Tab RxNorm: 070499 1 Tablet(s) PO QD No Start Date Inactive Lantus Solostar U-100 Insulin 100 unit/mL (3 mL) subcu taneous pen RxNorm: 967361 36 Unit(s) SQ QAM No Start Date 12/24/2017 Inactive Miacalcin 200 unit/Actuation Nasal [place] Aerosol RxNorm: 261 204 1 [place] NASAL QD Alternate nostrils each day No Start Date 04/05/2010 Inactive Amitriptyline 150 mg Tab RxNorm: 403368 1 Tablet(s) PO QHS No Start Date 01/04/2010 Inactive Bystolic 5 mg tablet RxNorm: 114932 1 Tablet(s) PO QD No Start Date 0 08/13/2012 Inactive Aricept 10 mg Tab RxNorm: 667794 1 Tablet(s) PO QD No Start Date 11/03 Inactive Lantus Solostar U-100 Insulin 100 unit/mL (3 mL) subcu taneous pen RxNorm: 287147 50 Unit(s) SQ QAM No Start Date 08/27/2018 Inactive albuterol sulfate 2.5 mg/3 mL (0.083 %) Neb Solution RxNorm: 540951 1 Unit Dose INH QID as needed No Start Date 08/23/2015 Inactive Symbicort 160 mcg-4.5 mcg/actuation HFA Aerosol Inhaler RxNo rm: 2664459 2 Puff(s) INH BID No Start Date 12/03/2011 Inactive Savella 50 mg Tab RxNorm: 940453 1 Tablet(s) PO BID No Start Date 04/2010 Inactive amitriptyline 100 mg Tab RxNorm: 449619 1 1/2 Tablet(s) PO QHS No S tart Date 06/19/2011 Inactive nystatin 100,000 unit/g Topical Cream RxNorm: 350984 Ap plication TOP BID to rash for 2-4 weeks No Start Date 01/14/2011 Inactive Trelegy Ellipta 100 mcg-62.5 mcg-25 mcg powder for inhalatio n RxNorm: 8615374 1 Puff(s) INH QD No Start Date 12/16/2017 Inactive Lyrica 150 mg capsule RxNorm: 466293 1 Capsule(s) PO QHS No Start D ate 12/04/2015 Inactive sennosides 8.6 mg tablet RxNorm: 235991 1 Tablet(s) PO BID No Start Date 09/07/2018 Inactive metformin ER 500 mg tablet,extended release 24 hr RxNorm: 86 0975 1 Tablet(s) PO QD No Start Date 10/22/2017 Inactive Fish Oil 1,000 mg Cap RxNorm: 1 Capsule(s) PO QD No Start Date 06/2011 Inactive Zyrtec 10 mg Tab RxNorm: 0715144 1 Tablet(s) PO QD No Start Date 07/03 Inactive albuterol sulfate HFA 90 mcg/actuation aerosol inhaler RxNor m: 4833316 2 Puff(s) INH Q4H as needed for cough No Start Date 09/30/2013 Inactive trazodone 150 mg tablet RxNorm: 038004 1 Tablet(s) PO QHS No Start Date 07/21/2012 Inactive Spiriva with HandiHaler 18 mcg & inhalation capsules RxNorm: 593531 1 Capsule(s) INH QD No Start Date 04/05/2013 Inactive Coreg 3.125 mg Tab RxNorm: 103714 1 Tablet(s) PO BID No Start Date Inactive Phenergan 25 mg Tab RxNorm: 972327 Tablet(s) PO PRN MIGRAINE No Sta rt Date 11/21/2009 Inactive Vitamin D 50,000 unit Cap RxNorm: 4268409 1 Capsule(s) PO QW No Sta rt Date 03/07/2011 Inactive Januvia 100 mg tablet RxNorm: 915072 1 Tablet(s) PO QD No Start Date 10/25/2015 Inactive Eliquis 5 mg tablet RxNorm: 0495554 1 Tablet(s) PO BID No Start Date 08/19/2018 Inactive Advair Diskus 500 mcg-50 mcg/Dose for Inhalation RxNorm: 677209 1 INH BID No Start Date 07/21/2012 Inactive Vitamin D3 5,000 unit tablet RxNorm: 200263 1 Tablet(s) PO QD No St art Date 07/18/2017 Inactive Amaryl 2 mg tablet RxNorm: 042513 1 Tablet(s) PO QD No Start Date 06/2015 Inactive Actos 30 mg tablet RxNorm: 130532 1 Tablet(s) PO QD No Start Date Inactive promethazine 25 mg tablet RxNorm: 573655 1 Tablet(s) PO Q4H prn N/V No Start Date 07/21/2012 Inactive ProAir HFA 90 mcg/actuation Aerosol Inhaler RxNorm: 453081 2 Puff(s) INH Q4H prn dyspnea No Start Date 07/21/2012 Inactive Dexilant 60 mg Capsule RxNorm: 699965 1 Capsule(s) PO QD No Start D ate 01/27/2012 Inactive Lantus Solostar U-100 Insulin 100 unit/mL (3 mL) subcu taneous pen RxNorm: 352353 38 Unit(s) SQ QAM No Start Date 05/20/2018 Inactive Valium 10 mg Tab RxNorm: 911061 1 Tablet(s) PO QHS AND PRN No Start Date 10/24/2009 Inactive ZOFRAN ODT 8 mg disintegrating tablet RxNorm: 425552 1 Tablet(s ) PO Q6H No Start [...] Date S ervice Location MICROALBUMIN URINE RANDOM 83283 MICRL MG/L 14.9 MG/L Unknown MICROALBUMIN URINE RANDOM 16300 XM.ALB/CRE 6.1 MG/GCR Unknown MICROALBUMIN URINE RANDOM 13885 CREAT MG/D 243 MG/DL Unknown MICROALBUMIN URINE RANDOM 27377 CRE/100 2.43 G/L 03/05 Unknown PROTEIN/CREAT URINE WITH RATIO 43965|13053 PROT R U 14 MG/D L 04/01/2014 Unknown PROTEIN/CREAT URINE WITH RATIO 57026|43191 CREAT R U 254 MG/ DL 04/01/2014 Unknown PROTEIN/CREAT URINE WITH RATIO 56263|27211 XRATIO P/C 55 MG/ G 04/01/2014 Unknown URINALYSIS 35175 PROTEIN UR NEG 04/28/2010 Unknown URINALYSIS 07753 HEMGLBN UR NEG 04/28/2010 Unknown URINALYSIS 98286 GLUCOSE UR NEG 04/28/2010 Unknown URINALYSIS 22039 KETONES UR NEG 04/28/2010 Unknown URINALYSIS 65436 PH U 5.5 04/28/2010 Unknown URINALYSIS 22616 SP GR U 1.025 04/28/2010 Unknown URINALYSIS 14746 BILRUBN UR NEG 04/28/2010 Unknown URINALYSIS 67527 LEUKO UR 2+ 04/28/2010 Unknown URINALYSIS 05336 NITRITE UR NEG 04/28/2010 Unknown MICR CUL? [id number] WBC/HPF 6-10 04/28/2010 Unknown MICR CUL? [id number] RBC/HPF 0-5 04/28/2010 Unknown MICR CUL? [id number] HYAL CAST 16-25 04/28/2010 Unknown MICR CUL? [id number] SP TO YOLIE? NO 04/28/2010 Unknown MICR CUL? [id number] APPEAR UR NORMAL 04/28/2010 Unknown MICR CUL? [id number] SQ EPI/LPF FEW 04/28/2010 Unknown Procedures Procedure Codes Date URINALYSIS NONAUTO W/O SCOPE CPT-4: 13015 04/16/2019 URINE CULTURE/ COLONY COUNT CPT-4: 63192 04/16/2019 CEFTRIAXONE SODIUM INJECTION CPT-4: J0696 04/16/2019 THER/PROPH/DIAG INJ SC/IM CPT-4: 24189 04/16/2019 DRAIN/INJECT JOINT/BURSA CPT-4: 96720 01/22/2019 TRIAMCINOLONE ACET INJ NOS CPT-4: J3301 01/22/2019 DEXAMETHASONE SODIUM PHOS CPT-4: J1100 01/22/2019 URINE CULTURE/ COLONY COUNT CPT-4: 98968 01/07/2019 URINALYSIS NONAUTO W/O SCOPE CPT-4: 91498 01/07/2019 CEFTRIAXONE SODIUM INJECTION CPT-4: J0696 01/07/2019 THER/PROPH/DIAG INJ SC/IM CPT-4: 28699 01/07/2019 FLU VACC PRSV FREE INC ANTIG 65 AND OLDER CPT-4: 92593 12/24/2018 FLU VACC PRSV FREE INC ANTIG 65 AND OLDER CPT-4: 27580 12/24/2018 ADMIN INFLUENZA VIRUS VAC CPT-4: G0008 12/24/2018 THER/PROPH/DIAG INJ SC/IM CPT-4: 02474 11/04/2018 KETOROLAC TROMETHAMINE INJ CPT-4: J1885 11/04/2018 PROMETHAZINE HCL INJECTION CPT-4: J2550 11/04/2018 PPPS, subseq visit CPT-4: G0439 09/18/2018 THER/PROPH/DIAG INJ SC/IM CPT-4: 87915 04/01/2018 KETOROLAC TROMETHAMINE INJ CPT-4: J1885 04/01/2018 PROMETHAZINE HCL INJECTION CPT-4: J2550 04/01/2018 URINE CULTURE/ COLONY COUNT CPT-4: 14021 03/17/2018 URINALYSIS NONAUTO W/O SCOPE CPT-4: 40184 03/17/2018 FLU VACC PRSV FREE INC ANTIG 65 AND OLDER CPT-4: 01584 12/17/2017 PNEUMOCOCCAL VACC 23 RANDALL IM CPT-4: 17727 12/17/2017 ADMIN INFLUENZA VIRUS VAC CPT-4: G0008 12/17/2017 ADMIN PNEUMOCOCCAL VACCINE CPT-4: G0009 12/17/2017 PPPS, subseq visit CPT-4: G0439 09/17/2017 THER/PROPH/DIAG INJ SC/IM CPT-4: 47263 08/26/2017 KETOROLAC TROMETHAMINE INJ CPT-4: J1885 08/26/2017 PROMETHAZINE HCL INJECTION CPT-4: J2550 08/26/2017 URINALYSIS NONAUTO W/O SCOPE CPT-4: 25483 07/19/2017 URINE CULTURE/ COLONY COUNT CPT-4: 46800 07/19/2017 CEFTRIAXONE SODIUM INJECTION CPT-4: J0696 07/19/2017 THER/PROPH/DIAG INJ SC/IM CPT-4: 47721 07/19/2017 THER/PROPH/DIAG INJ SC/IM CPT-4: 04118 07/19/2017 TRIAMCINOLONE ACET INJ NOS CPT-4: J3301 07/19/2017 PRESCRIP TRANSMIT VIA ERX SY CPT-4: G8553 05/07/2017 PRESCRIP TRANSMIT VIA ERX SY CPT-4: G8553 02/22/2017 PRESCRIP TRANSMIT VIA ERX SY CPT-4: G8553 01/23/2017 FLU VACC PRSV FREE INC ANTIG 65 AND OLDER CPT-4: 51165 12/20/2016 PNEUMOCOCCAL VACC 13 RANDALL IM CPT-4: 82290 12/20/2016 ADMIN INFLUENZA VIRUS VAC CPT-4: G0008 12/20/2016 ADMIN PNEUMOCOCCAL VACCINE CPT-4: G0009 12/20/2016 URINALYSIS NONAUTO W/O SCOPE CPT-4: 87927 10/08/2016 URINE CULTURE/ COLONY COUNT CPT-4: 70543 10/08/2016 PRESCRIP TRANSMIT VIA ERX SY CPT-4: G8553 10/08/2016 PRESCRIP TRANSMIT VIA ERX SY CPT-4: G8553 09/19/2016 PRESCRIP TRANSMIT VIA ERX SY CPT-4: G8553 08/20/2016 PRESCRIP TRANSMIT VIA ERX SY CPT-4: G8553 02/29/2016 KETOROLAC TROMETHAMINE INJ CPT-4: J1885 02/02/2016 THER/PROPH/DIAG INJ SC/IM CPT-4: 02177 02/02/2016 PROMETHAZINE HCL INJECTION CPT-4: J2550 02/02/2016 PRESCRIP TRANSMIT VIA ERX SY CPT-4: G8553 02/02/2016 FLU VACC PRSV FREE INC ANTIG 65 AND OLDER CPT-4: 55351 01/05/2016 PPPS, subseq visit CPT-4: G0439 01/05/2016 ADMIN INFLUENZA VIRUS VAC CPT-4: G0008 01/05/2016 URINE CULTURE/ COLONY COUNT CPT-4: 49663 12/05/2015 URINALYSIS NONAUTO W/O SCOPE CPT-4: 26814 12/05/2015 PRESCRIP TRANSMIT VIA ERX SY CPT-4: G8553 12/05/2015 PRESCRIP TRANSMIT VIA ERX SY CPT-4: G8553 10/26/2015 URINALYSIS NONAUTO W/O SCOPE CPT-4: 26706 10/05/2015 URINE CULTURE/ COLONY COUNT CPT-4: 79945 10/05/2015 PRESCRIP TRANSMIT VIA ERX SY CPT-4: G8553 10/05/2015 SERVICE REQUIRED FOR PMD CPT-4: G0372 09/15/2015 PRESCRIP TRANSMIT VIA ERX SY CPT-4: G8553 09/15/2015 SPECIAL REPORTS OR FORMS CPT-4: 76438 08/25/2015 PRESCRIP TRANSMIT VIA ERX SY CPT-4: G8553 07/05/2015 URINALYSIS NONAUTO W/O SCOPE CPT-4: 00409 03/30/2015 ASSAY, GLUCOSE, BLOOD QUANT CPT-4: 21653 03/30/2015 URINE CULTURE/ COLONY COUNT CPT-4: 15951 03/30/2015 PRESCRIP TRANSMIT VIA ERX SY CPT-4: G8553 03/30/2015 PRESCRIP TRANSMIT VIA ERX SY CPT-4: G8553 02/03/2015 FLU VACC PRSV FREE INC ANTIG 65 AND OLDER CPT-4: 82919 12/29/2014 ADMIN INFLUENZA VIRUS VAC CPT-4: G0008 12/29/2014 PRESCRIP TRANSMIT VIA ERX SY CPT-4: G8553 12/29/2014 PRESCRIP TRANSMIT VIA ERX SY CPT-4: G8553 09/02/2014 PROTEIN/CREAT URINE WITH RATIO CPT-4: 79511|76941 5 MICROALBUMIN QUANTITATIVE CPT-4: 84816 04/01/2014 PRESCRIP TRANSMIT VIA ERX SY CPT-4: G8553 03/16/2014 PRESCRIP TRANSMIT VIA ERX SY CPT-4: G8553 03/09/2014 THER/PROPH/DIAG INJ SC/IM CPT-4: 73225 03/01/2014 TRIAMCINOLONE ACET INJ NOS CPT-4: J3301 03/01/2014 PRESCRIP TRANSMIT VIA ERX SY CPT-4: G8553 02/09/2014 URINE CULTURE/ COLONY COUNT CPT-4: 86157 10/30/2013 URINALYSIS NONAUTO W/O SCOPE CPT-4: 88665 10/21/2013 URINE CULTURE/ COLONY COUNT CPT-4: 95512 10/21/2013 DESTRUCT PREMALG LESION (Cryosurgery) CPT-4: 79676 PRESCRIP TRANSMIT VIA ERX SY CPT-4: G8553 10/05/2013 URINALYSIS NONAUTO W/O SCOPE CPT-4: 93332 08/04/2013 URINE CULTURE/ COLONY COUNT CPT-4: 13945 08/04/2013 PRESCRIP TRANSMIT VIA ERX SY CPT-4: G8553 08/04/2013 THER/PROPH/DIAG INJ SC/IM CPT-4: 31075 07/13/2013 TRIAMCINOLONE ACET INJ NOS CPT-4: J3301 07/13/2013 PRESCRIP TRANSMIT VIA ERX SY CPT-4: G8553 05/27/2013 URINALYSIS NONAUTO W/O SCOPE CPT-4: 73099 05/25/2013 URINE CULTURE/ COLONY COUNT CPT-4: 15100 05/25/2013 THER/PROPH/DIAG INJ SC/IM CPT-4: 93691 05/04/2013 VITAMIN B12 INJECTION CPT-4: J3420 05/04/2013 THER/PROPH/DIAG INJ SC/IM CPT-4: 39121 04/17/2013 VITAMIN B12 INJECTION CPT-4: J3420 04/17/2013 THER/PROPH/DIAG INJ SC/IM CPT-4: 92363 04/17/2013 METHYLPREDNISOLONE 40 MG INJ CPT-4: J1030 04/17/2013 TRIAMCINOLONE ACET INJ NOS CPT-4: J3301 04/17/2013 URINALYSIS NONAUTO W/O SCOPE CPT-4: 58000 04/06/2013 URINE CULTURE/ COLONY COUNT CPT-4: 17213 04/06/2013 PRESCRIP TRANSMIT VIA ERX SY CPT-4: G8553 04/06/2013 KETOROLAC TROMETHAMINE INJ CPT-4: J1885 06/25/2012 PROMETHAZINE HCL INJECTION CPT-4: J2550 06/25/2012 THER/PROPH/DIAG INJ SC/IM CPT-4: 79513 06/25/2012 THER/PROPH/DIAG INJ SC/IM CPT-4: 68575 06/24/2012 METHYLPREDNISOLONE 40 MG INJ CPT-4: J1030 06/24/2012 TRIAMCINOLONE ACET INJ NOS CPT-4: J3301 06/24/2012 URINE CULTURE/ COLONY COUNT CPT-4: 35585 06/24/2012 THER/PROPH/DIAG INJ SC/IM CPT-4: 23695 05/20/2012 KETOROLAC TROMETHAMINE INJ CPT-4: J1885 05/20/2012 THER/PROPH/DIAG INJ SC/IM CPT-4: 04874 05/20/2012 PROMETHAZINE HCL INJECTION CPT-4: J2550 05/20/2012 DRAIN/INJECT JOINT/BURSA CPT-4: 14222 02/13/2012 METHYLPREDNISOLONE 40 MG INJ CPT-4: J1030 02/13/2012 TRIAMCINOLONE ACET INJ NOS CPT-4: J3301 02/13/2012 THER/PROPH/DIAG INJ SC/IM CPT-4: 95846 11/14/2011 METHYLPREDNISOLONE 40 MG INJ CPT-4: J1030 11/14/2011 TRIAMCINOLONE ACET INJ NOS CPT-4: J3301 11/14/2011 THER/PROPH/DIAG INJ SC/IM CPT-4: 40649 09/12/2011 KETOROLAC TROMETHAMINE INJ CPT-4: J1885 09/12/2011 THER/PROPH/DIAG INJ SC/IM CPT-4: 48370 08/09/2011 METHYLPREDNISOLONE 40 MG INJ CPT-4: J1030 08/09/2011 TRIAMCINOLONE ACET INJ NOS CPT-4: J3301 08/09/2011 URINE CULTURE/ COLONY COUNT CPT-4: 63627 07/03/2011 URINE CULTURE/ COLONY COUNT CPT-4: 87631 06/04/2011 THER/PROPH/DIAG INJ SC/IM CPT-4: 94484 05/03/2011 METHYLPREDNISOLONE 40 MG INJ CPT-4: J1030 05/03/2011 TRIAMCINOLONE ACET INJ NOS CPT-4: J3301 05/03/2011 URINALYSIS NONAUTO W/O SCOPE CPT-4: 29534 01/24/2011 URINE CULTURE/ COLONY COUNT CPT-4: 98564 01/24/2011 FLUZONE, 5ML (Medicare) CPT-4: Q2038 01/02/2011 ADMIN INFLUENZA VIRUS VAC CPT-4: G0008 01/02/2011 ASSAY, GLUCOSE, BLOOD QUANT CPT-4: 21117 12/07/2010 URINE CULTURE/ COLONY COUNT CPT-4: 89375 11/02/2010 THER/PROPH/DIAG INJ SC/IM CPT-4: 31959 10/18/2010 METHYLPREDNISOLONE 40 MG INJ CPT-4: J1030 10/18/2010 TRIAMCINOLONE ACET INJ NOS CPT-4: J3301 10/18/2010 TRIAMCINOLONE ACET INJ NOS CPT-4: J3301 05/11/2010 METHYLPREDNISOLONE 40 MG INJ CPT-4: J1030 05/11/2010 THER/PROPH/DIAG INJ SC/IM CPT-4: 67187 05/11/2010 TRIAMCINOLONE ACET INJ NOS CPT-4: J3301 02/09/2010 METHYLPREDNISOLONE 40 MG INJ CPT-4: J1030 02/09/2010 THER/PROPH/DIAG INJ SC/IM CPT-4: 44575 02/09/2010 SERVICE REQUIRED FOR PMD CPT-4: G0372 02/09/2010 FLU VACCINE 3 YRS & > IM UP 64 CPT-4: 08314 0 PNEUMOCOCCAL VACC 23 RANDALL IM CPT-4: 02362 12/07/2009 ADMIN INFLUENZA VIRUS VAC CPT-4: G0008 12/07/2009 ADMIN PNEUMOCOCCAL VACCINE CPT-4: G0009 12/07/2009 TRIAMCINOLONE ACET INJ NOS CPT-4: J3301 05/26/2009 THER/PROPH/DIAG INJ SC/IM CPT-4: 27701 05/26/2009 METHYLPREDNISOLONE 80 MG INJ CPT-4: J1040 [...] 1: 114/72 Code: 8480-6 BMI: 37.8 Code: 49512-8 Heart Rate 1: 72 bpm Height: 5'3" [...] 1: 106/68 Code: 8480-6 BMI: 35.7 Code: 43560-2 Heart Rate 1: 72 bpm Height: 5'4" Respiratory Rate: 20 bpm SpO2: 98% Tempera ture: 36.7 (C) / 98.0 (F) Weight: 208 lbs 04/16/2018 Blood Pressure 1: 132/82 Code: 8480-6 BMI: 37.9 Code: 53418-0 Heart Rate 1: 72 bpm Height: 5'4" Respiratory Rate: 20 bpm SpO2: 96% Tempera ture: 37.1 (C) / 98.8 (F) Weight: 221 lbs 04/01/2018 Blood Pressure 1: 150/90 Code: 8480-6 Heart Rate 1: 72 bpm Respiratory Rate: 22 bpm SpO2: 95% Temperature: 36.4 (C) / 97.6 (F) We ight: 216 lbs 03/06/2018 Blood Pressure 1: 126/78 Code: 8480-6 BMI: 37.4 Code: 63387-1 Heart Rate 1: 68 bpm Height: 5'4" [...] ight: 222 lbs 12/25/2017 BMI: 37.8 Code: 50384-8 Heart Rate 1: 76 bpm Height: 5 '4" Respiratory Rate: 20 bpm SpO2: 96% Temperature: 37.3 (C) / 99.2 (F) Weight: 220 lbs 12/17/2017 Blood Pressure 1: 132/78 Code: 8480-6 BMI: 37.2 Code: 91325-1 Heart Rate 1: 88 bpm Height: 5'4" Respiratory Rate: 20 bpm SpO2: 96% Tempera ture: 37.3 (C) / 99.2 (F) Weight: 217 lbs 10/30/2017 Blood Pressure 1: 114/68 Code: 8480-6 BMI: 36.4 Code: 55423-8 Heart Rate 1: 72 bpm Height: 5'4" Respiratory Rate: 22 bpm SpO2: 96% Tempera ture: 36.8 (C) / 98.2 (F) Weight: 212 lbs 10/23/2017 Blood Pressure 1: 124/78 Code: 8480-6 Heart Rate 1: 72 bpm Respiratory Rate: 24 bpm SpO2: 94% Temperature: 36.6 (C) / 97.9 (F) We ight: 212 lbs 09/17/2017 Blood Pressure 1: 128/82 Code: 8480-6 BMI: 37.4 Code: 26262-5 Heart Rate 1: 72 bpm Height: 5'4" Respiratory Rate: 20 bpm SpO2: 96% Tempera ture: 37.0 (C) / 98.6 (F) Weight: 218 lbs 07/19/2017 Blood Pressure 1: 136/84 Code: 8480-6 BMI: 36.6 Code: 63204-7 Heart Rate 1: 88 bpm Height: 5'4" Respiratory Rate: 20 bpm SpO2: 97% Tempera ture: 36.7 (C) / 98.0 (F) Weight: 213 lbs 05/29/2017 Blood Pressure 1: 136/82 Code: 8480-6 BMI: 36.7 Code: 47843-3 Heart Rate 1: 72 bpm Height: 5'4" Respiratory Rate: 20 bpm SpO2: 97% Tempera ture: 36.9 (C) / 98.4 (F) Weight: 214 lbs 05/07/2017 Blood Pressure 1: 122/80 Code: 8480-6 BMI: 37.1 Code: 45093-2 Heart Rate 1: 80 bpm Height: 5'4" Respiratory Rate: 24 bpm SpO2: 96% Tempera ture: 36.1 (C) / 97.0 (F) Weight: 216 lbs 03/18/2017 BMI: 36.7 Code: 33175-6 Heart Rate 1: 80 bpm Height: 5 '4" Respiratory Rate: 22 bpm SpO2: 95% Temperature: 36.9 (C) / 98.4 (F) Weight: 214 lbs 02/27/2017 Blood Pressure 1: 146/94 Code: 8480-6 BMI: 36.6 Code: 31184-4 Heart Rate 1: 76 bpm Height: 5'4" Respiratory Rate: 22 bpm SpO2: 97% Tempera ture: 36.6 (C) / 97.9 (F) Weight: 213 lbs 02/22/2017 Blood Pressure 1: 126/90 Code: 8480-6 BMI: 36.4 Code: 12510-7 Heart Rate 1: 84 bpm Height: 5'4" Respiratory Rate: 22 bpm SpO2: 95% Tempera ture: 36.9 (C) / 98.4 (F) Weight: 212 lbs 01/23/2017 Blood Pressure 1: 146/82 Code: 8480-6 BMI: 37.6 Code: 30077-2 Heart Rate 1: 96 bpm Height: 5'4" Respiratory Rate: 20 bpm SpO2: 96% Tempera ture: 36.9 (C) / 98.4 (F) Weight: 219 lbs 12/20/2016 Blood Pressure 1: 126/70 Code: 8480-6 BMI: 37.2 Code: 10882-2 Heart Rate 1: 76 bpm Height: 5'4" Respiratory Rate: 22 bpm SpO2: 95% Tempera ture: 36.6 (C) / 97.8 (F) Weight: 217 lbs 10/08/2016 Blood Pressure 1: 128/82 Code: 8480-6 BMI: 36.9 Code: 04459-7 Heart Rate 1: 76 bpm Height: 5'4" Respiratory Rate: 20 bpm SpO2: 95% Tempera ture: 37.0 (C) / 98.6 (F) Weight: 215 lbs 09/19/2016 Blood Pressure 1: 144/78 Code: 8480-6 BMI: 37.8 Code: 58584-4 Heart Rate 1: 76 bpm Height: 5'4" Respiratory Rate: 22 bpm SpO2: 95% Tempera ture: 37.0 (C) / 98.6 (F) Weight: 220 lbs 08/20/2016 Blood Pressure 1: 140/86 Code: 8480-6 BMI: 37.4 Code: 62092-7 Heart Rate 1: 80 bpm Height: 5'4" Respiratory Rate: 20 bpm SpO2: 95% Tempera ture: 36.9 (C) / 98.4 (F) Weight: 218 lbs 06/19/2016 Blood Pressure 1: 124 Code: 8480-6 BMI: 37.8 Code: 91245-8 Heart Rate 1: 74 bpm Height: 5'4" Respiratory Rate: 24 bpm SpO2: 96% Tempera ture: 36.9 (C) / 98.4 (F) Weight: 220 lbs 06/04/2016 Blood Pressure 1: 12478 Code: 8480-6 BMI: 38.8 Code: 91843-0 Heart Rate 1: 72 bpm Height: 5'4" Respiratory Rate: 24 bpm SpO2: 95% Tempera ture: 36.8 (C) / 98.2 (F) Weight: 226 lbs 05/02/2016 Blood Pressure 1: 136/90 Code: 8480-6 BMI: 37.6 Code: 13087-3 Heart Rate 1: 72 bpm Height: 5'4" Respiratory Rate: 24 bpm SpO2: 96% Tempera ture: 36.9 (C) / 98.4 (F) Weight: 219 lbs 04/03/2016 Blood Pressure 1: 126/78 Code: 8480-6 BMI: 38.1 Code: 35202-6 Heart Rate 1: 72 bpm Height: 5'4" Respiratory Rate: 22 bpm SpO2: 94% Tempera ture: 36.9 (C) / 98.4 (F) Weight: 222 lbs 02/29/2016 Blood Pressure 1: 132/78 Code: 8480-6 Heart Rate 1: 78 bpm Height: Respiratory Rate: 24 bpm SpO2: 95% Temperature: 36.4 (C) / 97.6 (F) We ight: 02/02/2016 Blood Pressure 1: 124/78 Code: 8480-6 BMI: 37.6 Code: 31622-7 Heart Rate 1: 76 bpm Height: 5'4" Respiratory Rate: 20 bpm SpO2: 95% Tempera ture: 36.8 (C) / 98.2 (F) Weight: 219 lbs 01/05/2016 Blood Pressure 1: 126/70 Code: 8480-6 BMI: 37.1 Code: 68544-4 Heart Rate 1: 76 bpm Height: 5'4" Respiratory Rate: 20 bpm Temperature: 36 .6 (C) / 97.8 (F) Weight: 216 lbs 12/05/2015 Blood Pressure 1: 126/72 Code: 8480-6 BMI: 36.9 Code: 66567-4 Heart Rate 1: 92 bpm Height: 5'4" Respiratory Rate: 20 bpm Temperature: 36 .7 (C) / 98.1 (F) Weight: 215 lbs 10/26/2015 Blood Pressure 1: 142/80 Code: 8480-6 BMI: 36.4 Code: 91069-6 Heart Rate 1: 82 bpm Height: 5'4" Respiratory Rate: 24 bpm SpO2: 92% Tempera ture: 35.9 (C) / 96.7 (F) Weight: 212 lbs 10/05/2015 Blood Pressure 1: 136/82 Code: 8480-6 Heart Rate 1: 80 bpm Respiratory Rate: 18 bpm SpO2: 98% Temperature: 35.7 (C) / 96.3 (F) We ight: 214 lbs 09/15/2015 Blood Pressure 1: 116/80 Code: 8480-6 BMI: 34.6 Code: 00972-7 Heart Rate 1: 76 bpm Height: 5'6" Respiratory Rate: 20 bpm Temperature: 36 .6 (C) / 97.9 (F) Weight: 211 lbs 08/24/2015 Blood Pressure 1: 124/80 Code: 8480-6 BMI: 34.1 Code: 74560-3 Heart Rate 1: 68 bpm Height: 5'6" Respiratory Rate: 20 bpm Temperature: 36 .8 (C) / 98.3 (F) Weight: 208 lbs 07/05/2015 Blood Pressure 1: 114/78 Code: 8480-6 BMI: 33.9 Code: 56585-7 Heart Rate 1: 80 bpm Height: 5'6" Respiratory Rate: 20 bpm Temperature: 36 .6 (C) / 97.9 (F) Weight: 207 lbs 06/06/2015 Blood Pressure 1: 122/78 Code: 8480-6 BMI: 34.1 Code: 76949-5 Heart Rate 1: 76 bpm Height: 5'6" Respiratory Rate: 24 bpm SpO2: 96% Tempera ture: 36.4 (C) / 97.6 (F) Weight: 208 lbs 05/23/2015 Blood Pressure 1: 124/78 Code: 8480-6 Heart Rate 1: 76 bpm Respiratory Rate: 24 bpm SpO2: 93% Temperature: 36.8 (C) / 98.2 (F) We ight: 212 lbs 05/05/2015 Blood Pressure 1: 136/80 Code: 8480-6 BMI: 35.4 Code: 96019-2 Heart Rate 1: 76 bpm Height: 5'6" Respiratory Rate: 28 bpm Temperature: 37 .0 (C) / 98.6 (F) Weight: 216 lbs 03/30/2015 Blood Pressure 1: 132/86 Code: 8480-6 BMI: 35.2 Code: 71736-9 Heart Rate 1: 84 bpm Height: 5'6" Respiratory Rate: 24 bpm Temperature: 36 .7 (C) / 98.0 (F) Weight: 215 lbs 02/03/2015 Blood Pressure 1: 122/74 Code: 8480-6 BMI: 35.7 Code: 20966-0 Heart Rate 1: 84 bpm Height: 5'6" Respiratory Rate: 20 bpm Temperature: 36 .9 (C) / 98.5 (F) Weight: 218 lbs 12/29/2014 Blood Pressure 1: 132/80 Code: 8480-6 BMI: 35.1 Code: 89345-8 Heart Rate 1: 80 bpm Height: 5'6" Respiratory Rate: 20 bpm Temperature: 36 .6 (C) / 97.8 (F) Weight: 214 lbs 09/02/2014 Blood Pressure 1: 128/92 Code: 8480-6 BMI: 34.7 Code: 65317-2 Heart Rate 1: 84 bpm Height: 5'6" Respiratory Rate: 26 bpm Temperature: 36 .8 (C) / 98.2 (F) Weight: 212 lbs 08/25/2014 Blood Pressure 1: 124/80 Code: 8480-6 BMI: 34.7 Code: 43133-2 Heart Rate 1: 78 bpm Height: 5'6" Respiratory Rate: 22 bpm SpO2: 97% Tempera ture: 36.6 (C) / 97.8 (F) Weight: 212 lbs 04/01/2014 Blood Pressure 1: 142/84 Code: 8480-6 BMI: 34.4 Code: 83499-2 Heart Rate 1: 74 bpm Height: 5'5" Respiratory Rate: 20 bpm Temperature: 36 .4 (C) / 97.6 (F) Weight: 207 lbs 03/16/2014 Blood Pressure 1: 142/90 Code: 8480-6 BMI: 34.6 Code: 41491-4 Heart Rate 1: 76 bpm Height: 5'5" Respiratory Rate: 24 bpm Temperature: 36 .5 (C) / 97.7 (F) Weight: 208 lbs 03/09/2014 Blood Pressure 1: 116/70 Code: 8480-6 BMI: 35.3 Code: 82989-9 Heart Rate 1: 72 bpm Height: 5'5" [...] 1: 128/86 Code: 8480-6 BMI: 34.3 Code: 98850-5 Heart Rate 1: 84 bpm Height: 5'5" Respiratory Rate: 20 bpm Temperature: 36 .7 (C) / 98.0 (F) Weight: 206 lbs 12/23/2013 Blood Pressure 1: 122/70 Code: 8480-6 BMI: 34.3 Code: 48364-0 Heart Rate 1: 68 bpm Height: 5'5" Respiratory Rate: 20 bpm Temperature: 36 .8 (C) / 98.2 (F) Weight: 206 lbs 10/05/2013 Blood Pressure 1: 118/76 Code: 8480-6 BMI: 34.1 Code: 03953-6 Heart Rate 1: 68 bpm Height: 5'5" Respiratory Rate: 20 bpm SpO2: 98% Tempera ture: 36.6 (C) / 97.9 (F) Weight: 205 lbs 08/04/2013 Blood Pressure 1: 126/82 Code: 8480-6 BMI: 33.3 Code: 38576-0 Heart Rate 1: 76 bpm Height: 5'5" Respiratory Rate: 20 bpm Temperature: 36 .8 (C) / 98.2 (F) Weight: 200 lbs 07/03/2013 Blood Pressure 1: 124/82 Code: 8480-6 BMI: 33.3 Code: 09529-6 Heart Rate 1: 72 bpm Height: 5'5" Respiratory Rate: 22 bpm Temperature: 36 .1 (C) / 97.0 (F) Weight: 200 lbs 05/27/2013 Blood Pressure 1: 126/82 Code: 8480-6 Heart Rate 1: 74 bpm Respiratory Rate: 20 bpm Temperature: 36.0 (C) / 96.8 (F) Weight: 199 lbs 04/06/2013 Blood Pressure 1: 118/80 Code: 8480-6 BMI: 35.2 Code: 91807-3 Heart Rate 1: 80 bpm Height: 5'4" Respiratory Rate: 20 bpm Temperature: 37 .4 (C) / 99.3 (F) Weight: 205 lbs 11/10/2012 Blood Pressure 1: 128/82 Code: 8480-6 Heart Rate 1: 84 bpm Respiratory Rate: 20 bpm Temperature: 36.7 (C) / 98.0 (F) Weight: 199 lbs 09/02/2012 Blood Pressure 1: 116/82 Code: 8480-6 BMI: 34.2 Code: 31373-8 Heart Rate 1: 88 bpm Height: 5'4" Respiratory Rate: 22 bpm Temperature: 36 .6 (C) / 97.8 (F) Weight: 199 lbs 08/04/2012 Blood Pressure 1: 128/74 Code: 8480-6 BMI: 34.0 Code: 88761-1 Heart Rate 1: 92 bpm Height: 5'4" Respiratory Rate: 20 bpm Temperature: 36 .4 (C) / 97.5 (F) Weight: 198 lbs 07/21/2012 Blood Pressure 1: 124/86 Code: 8480-6 Heart Rate 1: 116 bpm Respiratory Rate: 24 bpm Temperature: 36.8 (C) / 98.2 (F) 07/02/2012 Blood Pressure 1: 116/88 Code: 8480-6 BMI: 33.6 Code: 28204-4 Heart Rate 1: 76 bpm Height: 5'4" Respiratory Rate: 20 bpm Temperature: 36 .8 (C) / 98.3 (F) Weight: 196 lbs 06/24/2012 Blood Pressure 1: 124/80 Code: 8480-6 BMI: 34.3 Code: 75420-7 Heart Rate 1: 72 bpm Height: 5'4" SpO2: 96% Temperature: 36.3 (C) / 97.3 (F) Weight: 200 lbs 05/20/2012 Blood Pressure 1: 116/88 Code: 8480-6 BMI: 33.8 Code: 95559-2 Heart Rate 1: 80 bpm Height: 5'4" Respiratory Rate: 22 bpm Temperature: 36 .9 (C) / 98.4 (F) Weight: 197 lbs 05/08/2012 Blood Pressure 1: 128/86 Code: 8480-6 BMI: 33.8 Code: 14403-3 Heart Rate 1: 76 bpm Height: 5'4" Respiratory Rate: 26 bpm SpO2: 95% Tempera ture: 36.1 (C) / 97.0 (F) Weight: 197 lbs 04/22/2012 Blood Pressure 1: 106/64 Code: 8480-6 BMI: 33.8 Code: 13749-9 Heart Rate 1: 70 bpm Height: 5'4" Temperature: 36.1 (C) / 97.0 (F) Weight: 197 lbs 02/13/2012 Blood Pressure 1: 126/82 Code: 8480-6 BMI: 34.7 Code: 73067-4 Heart Rate 1: 64 bpm Height: 5'4" Respiratory Rate: 20 bpm Temperature: 36 .6 (C) / 97.8 (F) Weight: 202 lbs 01/28/2012 Blood Pressure 1: 116/80 Code: 8480-6 BMI: 34.7 Code: 33204-0 Heart Rate 1: 76 bpm Height: 5'4" Respiratory Rate: 20 bpm Temperature: 36 .8 (C) / 98.3 (F) Weight: 202 lbs 12/26/2011 Blood Pressure 1: 132/82 Code: 8480-6 BMI: 36.0 Code: 52210-6 Heart Rate 1: 68 bpm Height: 5'4" Respiratory Rate: 22 bpm Temperature: 36 .7 (C) / 98.0 (F) Weight: 210 lbs 11/14/2011 Blood Pressure 1: 124/80 Code: 8480-6 BMI: 36.4 Code: 34868-5 Heart Rate 1: 76 bpm Height: 5'4" Respiratory Rate: 20 bpm Temperature: 36 .8 (C) / 98.2 (F) Weight: 212 lbs 09/12/2011 Blood Pressure 1: 108/74 Code: 8480-6 BMI: 37.1 Code: 12175-0 Heart Rate 1: 72 bpm Height: 5'4" Respiratory Rate: 20 bpm Temperature: 37 .0 (C) / 98.6 (F) Weight: 216 lbs 08/15/2011 Blood Pressure 1: 122/80 Code: 8480-6 BMI: 36.9 Code: 36543-6 Heart Rate 1: 76 bpm Height: 5'4" Respiratory Rate: 20 bpm Temperature: 36 .2 (C) / 97.1 (F) Weight: 215 lbs 08/09/2011 Blood Pressure 1: 112/78 Code: 8480-6 BMI: 36.9 Code: 03060-2 Heart Rate 1: 68 bpm Height: 5'4" Respiratory Rate: 20 bpm Temperature: 36 .7 (C) / 98.0 (F) Weight: 215 lbs 07/03/2011 Blood Pressure 1: 140/94 Code: 8480-6 BMI: 36.2 Code: 72836-8 Heart Rate 1: 68 bpm Height: 5'4" Temperature: 36.0 (C) / 96.8 (F) Weight: 211 lbs 06/04/2011 Blood Pressure 1: 124/70 Code: 8480-6 BMI: 36.7 Code: 86479-7 Heart Rate 1: 68 bpm Height: 5'4" Respiratory Rate: 20 bpm Temperature: 36 .6 (C) / 97.9 (F) Weight: 214 lbs 05/03/2011 Blood Pressure 1: 130/76 Code: 8480-6 BMI: 36.4 Code: 91043-0 Heart Rate 1: 74 bpm Height: 5'5" Temperature: 36.2 (C) / 97.2 (F) Weight: 219 lbs 04/05/2011 Blood Pressure 1: 124/86 Code: 8480-6 BMI: 35.9 Code: 24594-3 Heart Rate 1: 76 bpm Height: 5'6" Respiratory Rate: 22 bpm Temperature: 36 .3 (C) / 97.3 (F) Weight: 219 lbs 03/08/2011 Blood Pressure 1: 112/78 Code: 8480-6 BMI: 35.1 Code: 39875-2 Heart Rate 1: 80 bpm Height: 5'6" Respiratory Rate: 26 bpm Temperature: 36 .9 (C) / 98.4 (F) Weight: 214 lbs 01/24/2011 Blood Pressure 1: 110/82 Code: 8480-6 BMI: 35.6 Code: 01101-5 Heart Rate 1: 80 bpm Height: 5'6" Temperature: 36.1 (C) / 97.0 (F) Weight: 217 lbs 01/02/2011 Blood Pressure 1: 106/72 Code: 8480-6 BMI: 35.6 Code: 90496-3 Heart Rate 1: 76 bpm Height: 5'6" [...] 1: 120/74 Code: 8480-6 BMI: 35.9 Code: 75727-3 Heart Rate 1: 72 bpm Height: 5'5" Temperature: 36.3 (C) / 97.4 (F) Weight: 216 lbs 09/19/2010 Blood Pressure 1: 124/80 Code: 8480-6 BMI: 35.4 Code: 60082-4 Heart Rate 1: 76 bpm Height: 5'5" [...] 1: 122/78 Code: 8480-6 BMI: 37.4 Code: 92917-7 Heart Rate 1: 84 bpm Height: 5'5" [...] 07/24/16 follow up 06/19/2016 1 week [facility] owup follow up 06/04/2016 1mo fwup follow up 05/02/2016 Hospital fwup follow up 04/03/2016 dyspnea 02/29/2016 low grade 99s follow up 02/02/2016 ER fwup diabetes mellitus 01/05/2016 painful urination 12/05/2015 follow up 10/26/2015 ER visit from at [facility] for COPD Exacerbation follow up 10/05/2015 ER Visit gait abnormality 09/15/2015 Patient requesting kelly pineda paperwork to be filled out disturbances of thinking 08/24/2015 follow up 07/05/2015 4wk fwup follow up 06/06/2015 Hospital fw cough 05/23/2015 follow up 05/05/2015 dyspnea 03/30/2015 [facility] needs new orde r for O2 abdominal pain 02/03/2015 cyst 12/29/2014 vs abscess follow up 09/02/2014 [facility] fw headache 08/25/2014 facial drooping [...] fwup follow up 05/20/2012 2wk [facility] dyskinesia or tremor 05/08/2012 follow up 04/22/2012 [...] 04/05/2011 1mo fwup follow up 03/08/2011 2wk [facility] fw dizziness 01/24/2011 frequent falling follow up 01/02/2011 decreased enalapril and propranolol rash 12/07/2010 under breasts/abdome n fold follow up 11/16/2010 1mo fwup follow up 11/02/2010 ER fwup follow up 10/18/[address] Medrano last w [place], having increased allergy symptoms. Would like steroid [...] month f/u follow up 12/07/2009 from [facility], done with PT--finished about 2wks [...] LION (obstructive sleep apnea)[ICD10: G47.33] Pattie Shi [a]list [email or web address] [email or web address] CPT-4: 24055 08/10/2019 ([id number]) OFFICE/OUTPATIENT VISIT EST Diagnosis: Pelvic pain in female[ICD10: R10.2] Diagnosis: Left leg swelling[ICD10: M79.89] Diagnosis: Dyspnea[ICD10: R06.00] Diagnosis: Constipation[ICD10: K59.00] Pattie BRUNSON S. O RENDER DO [facility] CPT-4: 00327 08/04/2019 ([id number]) OFFICE/OUTPATIENT VISIT EST Diagnosis: Inspiratory stridor[ICD10: R06.1] Diagnosis: Diarrhea[ICD10: R19.7] Belia Reid [facility] CPT-4: 9921 3 07/06/2019 ([id number]) OFFICE/OUTPATIENT VISIT EST Diagnosis: Left leg swelling[ICD10: M79.89] Diagnosis: Dyspnea[ICD10: R06.00] Belia Reid [facility] CPT-4: 9921 3 06/24/2019 ([id number]) OFFICE/OUTPATIENT VISIT EST Diagnosis: Acute bronchitis[ICD10: J20.9] Diagnosis: Colitis[ICD10: K52.9] Belia REID [facility] CPT-4: 93947 06/16/2019 ([id number]) OFFICE/OUTPATIENT VISIT EST Diagnosis: Diarrhea[ICD10: R19.7] Diagnosis: Abdominal bloating[ICD10: R14.0] Belia Reid [facility] CPT- 4: 27285 06/08/2019 ([id number]) OFFICE/OUTPATIENT VISIT EST Diagnosis: Acute febrile illness[ICD10: R50.9] Diagnosis: Colitis[ICD10: K52.9] Belia Reid [facility] CPT-4: 64607 05/26/2019 ([id number]) OFFICE/OUTPATIENT VISIT EST Diagnosis: Chronic obstructive pulmonary disease, unspecified[ICD10: J44.9] Diagnosis: Pulmonary fibrosis[ICD10: J84.10] Diagnosis: Intermittent stridor[ICD10: R06.1] Diagnosis: Muscle weakness[ICD10: M62.81] Belia REID [facility] CPT-4: 12956 05/13/2019 ([id number]) OFFICE/OUTPATIENT VISIT EST Diagnosis: Stridor[ICD10: R06.1] Diagnosis: COUGH[ICD10: R05] Belia REID [facility] CPT-4: 94623 05/06/2019 ([id number]) OFFICE/OUTPATIENT VISIT EST Diagnosis: Stridor[ICD10: R06.1] Diagnosis: Muscle, jerky movements (uncontrolled)[ICD10: G25.5] Belia REID [facility] CPT-4: 34182 04/29/2019 ([id number]) OFFICE/OUTPATIENT VISIT EST Diagnosis: Upper respiratory infection[ICD10: J06.9] Diagnosis: Flank pain[ICD10: R10.9] Diagnosis: Weight gain[ICD10: R63.5] Pattie AMBRIZ [facility] CPT-4: 45916 04/16/2019 ([id number]) OFFICE/OUTPATIENT VISIT EST Diagnosis: Generalized pruritus[ICD10: L29.9] Belia REID [employer] [facility] CPT-4: 79409 04/08/2019 ([id number]) OFFICE/OUTPATIENT VISIT EST Diagnosis: Acute bursitis of left shoulder[ICD10: M75.52] Diagnosis: Cervicalgia[ICD10: M54.2] Diagnosis: Chest wall pain[ICD10: R07.89] Belia SMITH [employer] [facility] CPT-4: 08873 01/22/2019 ([id number]) OFFICE/OUTPATIENT VISIT EST Diagnosis: Abdominal pain[ICD10: R10.9] Diagnosis: Pyelonephritis[ICD10: N12] Pattie DOMINGUEZ [email or web address] CPT-4: 89205 01/07/2019 ([id number]) OFFICE/OUTPATIENT VISIT EST Diagnosis: Low back pain[ICD10: M54.5] Diagnosis: Left lumbar radiculopathy[ICD10: M54.16] Diagnosis: Left flank pain[ICD10: R10.9] Diagnosis: Left lower quadrant pain[ICD10: R10.32] Diagnosis: FLU VACCINE[ICD10: Z23] Belia FREDERICK [email or web address] CPT-4: 00503 12/24/2018 ([id number]) OFFICE/OUTPATIENT VISIT EST Diagnosis: Migraine, unspecified, not intractable, without status migrainosus[ICD10: G43.909] Diagnosis: Fibromyalgia[ICD10: M79.7] Belia DOMINGUEZ [email or web address] CPT-4: 18066 11/20/2018 ([id number]) OFFICE/OUTPATIENT VISIT EST Diagnosis: Migraine, unspecified, intractable, without status migrainosus[ICD10: G43.919] Diagnosis: Acute sinusitis, unspecified[ICD10: J01.90] Pattie REID [email or web address] CPT-4: 21140 11/04/2018 ([id number]) OFFICE/OUTPATIENT VISIT EST Diagnosis: Pain in left wrist[ICD10: M25.532] Diagnosis: Other dorsalgia[ICD10: M54.89] Pattie Branjuan REID [employer] [facility] CPT-4: 92185 09/08/2018 ([id number]) OFFICE/OUTPATIENT VISIT EST Diagnosis: Acute stress reaction[ICD10: F43.0] Diagnosis: Pruritus, unspecified[ICD10: L29.9] 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, 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] Belia REID DO [facility] CPT-4: 85319 08/20/2018 ([id number]) OFFICE/OUTPATIENT VISIT EST Diagnosis: Hypotension due to drugs[ICD10: I95.2] Diagnosis: Paroxysmal atrial fibrillation[ICD10: I48.0] Diagnosis: Localized edema[ICD10: R60.0] Belia REID [facility] CPT-4: 66575 06/19/2018 ([id number]) OFFICE/OUTPATIENT VISIT EST Diagnosis: Generalized hyperhidrosis[ICD10: R61] Diagnosis: Essential (primary) hypertension[ICD10: I10] Diagnosis: Supraventricular tachycardia[ICD10: I47.1] Belia REID [facility] CPT-4: 77808 06/09/2018 ([id number]) OFFICE/OUTPATIENT VISIT EST Diagnosis: Stridor[ICD10: R06.1] Diagnosis: Dependence on supplemental oxygen[ICD10: Z99.81] Diagnosis: Weakness[ICD10: R53.1] Diagnosis: Supraventricular tachycardia[ICD10: I47.1] Belia REID [facility] CPT-4: 39547 05/21/2018 ([id number]) OFFICE/OUTPATIENT VISIT EST Diagnosis: Cervical disc disorder with radiculopathy, unspecified cervical region[ICD10: M50.10] Belia REID DO [facility] CPT-4: 83442 04/16/2018 ([id number]) OFFICE/OUTPATIENT VISIT EST Diagnosis: Migraine, unspecified, intractable, without status migrainosus[ICD10: G43.919] Diagnosis: Fibromyalgia[ICD10: M79.7] Pattie DOMINGUEZ [employer] [facility] CPT-4: 14174 04/01/2018 ([id number]) NURSE/OUTPATIENT VISIT EST Diagnosis: Hematuria, unspecified[ICD10: R31.9] Diagnosis: Dysuria[ICD10: R30.0] Belia REID DO [facility] CPT-4: 34577 03/17/2018 ([id number]) OFFICE/OUTPATIENT VISIT EST Diagnosis: Erythema intertrigo[ICD10: L30.4] Diagnosis: Chronic obstructive pulmonary disease with (acute) exacerbation[ICD10: J44.1] Diagnosis: Type 2 diabetes mellitus with hyperglycemia[ICD10: E11.65] Belia REID DO [facility] CPT-4: 06367 03/06/2018 ([id number]) OFFICE/OUTPATIENT VISIT EST Diagnosis: Cervicalgia[ICD10: M54.2] Pattie AMBRIZ DO [facility] CPT-4: 67865 02/05/2018 ([id number]) OFFICE/OUTPATIENT VISIT EST Diagnosis: Candidiasis of skin and nail[ICD10: B37.2] Diagnosis: Cervicalgia[ICD10: M54.2] Pattie AMBRIZ [facility] CPT-4: 33254 01/20/2018 ([id number]) OFFICE/OUTPATIENT VISIT EST Diagnosis: Pain in thoracic spine[ICD10: M54.6] Diagnosis: Radiculopathy, thoracic region[ICD10: M54.14] Belia REID DO [facility] CPT-4: 77656 12/25/2017 ([id number]) OFFICE/OUTPATIENT VISIT EST Diagnosis: Pain in thoracic spine[ICD10: M54.6] Diagnosis: Other muscle spasm[ICD10: M62.838] Diagnosis: FLU VACCINE[ICD10: Z23] Diagnosis: PNEUMOCOCCAL VACCINE[ICD10: Z23] Belia REID DO [facility] CPT-4: 55367 12/17/2017 ([id number]) OFFICE/OUTPATIENT VISIT EST Diagnosis: Chronic obstructive pulmonary disease with (acute) exacerbation[ICD10: J44.1] Belia REID DO [facility] CPT- 4: 39618 10/30/2017 ([id number]) OFFICE/OUTPATIENT VISIT EST Diagnosis: Chronic obstructive pulmonary disease with acute lower respiratory infection[ICD10: J44.0] Diagnosis: Mild intermittent asthma with (acute) exacerbation[ICD10: J45.21] Belia REID DO [facility] CPT-4: 15704 10/23/2017 ([id number]) NURSE/OUTPATIENT VISIT EST Diagnosis: Migraine, unspecified, not intractable, without status migrainosus[ICD10: G43.909] Belia REID DO [facility] CPT - 4: 38677 08/26/2017 ([id number]) OFFICE/OUTPATIENT VISIT EST Diagnosis: Urinary tract infection, site not specified[ICD10: N39.0] Diagnosis: Encounter for screening for osteoporosis[ICD10: Z13.820] Diagnosis: Encounter for screening mammogram for malignant neoplasm of breast[ICD10: Z12.31] Diagnosis: Acute bronchitis, unspecified[ICD10: J20.9] Pattie REID DO [facility] CPT-4: 52994 07/19/2017 ([id number]) OFFICE/OUTPATIENT VISIT EST Diagnosis: Rash and other nonspecific skin eruption[ICD10: R21] Pattie REID DO [facility] CPT-4: 14357 05/29/2017 ([id number]) OFFICE/OUTPATIENT VISIT EST Diagnosis: Diarrhea, unspecified[ICD10: R19.7] Diagnosis: Tinea corporis[ICD10: B35.4] Diagnosis: Tinea cruris[ICD10: B35.6] Diagnosis: Migraine, unspecified, not intractable, without status migrainosus[ICD10: G43.909] Belia REID DO [facility] CPT - 4: 82539 05/07/2017 ([id number]) OFFICE/OUTPATIENT VISIT EST Diagnosis: Stridor[ICD10: R06.1] Diagnosis: Chronic obstructive pulmonary disease with (acute) exacerbation[ICD10: J44.1] Belia REID DO [facility] CPT- 4: 33959 03/18/2017 ([id number]) OFFICE/OUTPATIENT VISIT EST Diagnosis: Type 2 diabetes mellitus with hyperglycemia[ICD10: E11.65] Belia REID DO [facility] CPT-4: 83593 02/27/2017 OFFICE/OUTPATIENT VISIT EST Diagnosis: Type 2 diabetes mellitus with hyperglycemia[ICD10: E11.65] Pattie REID DO [facility] CPT-4: 74459 02/22/2017 ([id number]) OFFICE/OUTPATIENT VISIT EST Diagnosis: Urinary tract infection, site not specified[ICD10: N39.0] Diagnosis: Pneumonia, unspecified organism[ICD10: J18.9] Diagnosis: Type 2 diabetes mellitus with hyperglycemia[ICD10: E11.65] Belia REID [facility] CPT-4: 77785 01/23/2017 ([id number]) OFFICE/OUTPATIENT VISIT EST Diagnosis: Type 2 diabetes mellitus with hyperglycemia[ICD10: E11.65] Diagnosis: Localized edema[ICD10: R60.0] Diagnosis: PNEUMOCOCCAL VACCINE[ICD10: Z23] Diagnosis: FLU VACCINE[ICD10: Z23] Belia FREDERICK [facility] CPT-4: 62504 12/20/2016 OFFICE/OUTPATIENT VISIT EST Diagnosis: Pain in thoracic spine[ICD10: M54.6] Diagnosis: Low back pain[ICD10: M54.5] Diagnosis: Cervicalgia[ICD10: M54.2] Diagnosis: Cough[ICD10: R05] Celeste Ferreira BELIA REID [facility] CPT-4: 45247 10/08/2016 ([id number]) OFFICE/OUTPATIENT VISIT EST Diagnosis: Primary insomnia[ICD10: F51.01] Diagnosis: Migraine, unspecified, not intractable, without status migrainosus[ICD10: G43.909] Diagnosis: Type 2 diabetes mellitus with hyperglycemia[ICD10: E11.65] Belia REID [facility] CPT-4: 03061 09/19/2016 ([id number]) OFFICE/OUTPATIENT VISIT EST Diagnosis: Migraine, unspecified, not intractable, without status migrainosus[ICD10: G43.909] Diagnosis: Generalized abdominal pain[ICD10: R10.84] Diagnosis: Cough[ICD10: R05] Belia Anushka REID [facility] CPT-4: 76742 08/20/2016 ([id number]) OFFICE/OUTPATIENT VISIT EST Diagnosis: Chronic obstructive pulmonary disease, unspecified[ICD10: J44.9] Diagnosis: Stridor[ICD10: R06.1] Belia REID DO [facility] CPT-4: 67245 06/19/2016 ([id number]) OFFICE/OUTPATIENT VISIT EST Diagnosis: Chronic obstructive pulmonary disease, unspecified[ICD10: J44.9] Diagnosis: Personal history of urinary (tract) infections[ICD10: Z87.440] Belia REID DO [facility] CPT-4: 86580 06/04/2016 ([id number]) OFFICE/OUTPATIENT VISIT EST Diagnosis: Stridor[ICD10: R06.1] Diagnosis: Chronic obstructive pulmonary disease with acute lower respiratory infection[ICD10: J44.0] Diagnosis: Other specified diseases of intestine[ICD10: K63.89] Diagnosis: Cystitis, unspecified without hematuria[ICD10: N30.90] Belia REID [employer] [facility] CPT-4: 91754 05/02/2016 ([id number]) OFFICE/OUTPATIENT VISIT EST Diagnosis: Fibromyalgia[ICD10: M79.7] Diagnosis: Urinary tract infection, site not specified[ICD10: N39.0] Belia REID DO [facility] CPT-4: 68318 04/03/2016 ([id number]) OFFICE/OUTPATIENT VISIT EST Diagnosis: Unspecified asthma, uncomplicated[ICD10: J45.909] Diagnosis: Cough[ICD10: R05] Lidia Jaiden REID DO [facility] T-4: 78195 02/29/2016 ([id number]) OFFICE/OUTPATIENT VISIT EST Diagnosis: Migraine, unspecified, intractable, without status migrainosus[ICD10: G43.919] Diagnosis: Urinary tract infection, site not specified[ICD10: N39.0] Belia REID DO [facility] CPT-4: 21516 02/02/2016 ([id number]) OFFICE/OUTPATIENT VISIT EST Diagnosis: Urinary tract infection, site not specified[ICD10: N39.0] Diagnosis: Unspecified abdominal pain[ICD10: R10.9] Diagnosis: Pain in thoracic spine[ICD10: M54.6] Diagnosis: Type 2 diabetes mellitus with diabetic neuropathic arthropathy[ICD10: E11.610] Belia Yandelisabellaannie HSUBELIA BushraMayda ANUSHKA [employer] [facility] CPT-4: 28338 12/05/2015 ([id number]) OFFICE/OUTPATIENT VISIT EST Diagnosis: Chronic obstructive pulmonary disease with (acute) exacerbation[ICD10: J44.1] Diagnosis: Migraine, unspecified, not intractable, without status migrainosus[ICD10: G43.909] Lidia HSUQUELINE BushraMayda ANUSHKA [employer] [facility] CPT -4: 99064 10/26/2015 ([id number]) OFFICE/OUTPATIENT VISIT EST Diagnosis: Hematuria, unspecified[ICD10: R31.9] Diagnosis: Urinary tract infection, site not specified[ICD10: N39.0] Lidia Jaiden BELIA BushraMayda ANUSHKA [employer] [facility] CPT-4: 65055 10/05/2015 OFFICE/OUTPATIENT VISIT EST Diagnosis: Chronic obstructive pulmonary disease, unspecified[ICD10: J44.9] Diagnosis: Muscle weakness (generalized)[ICD10: M62.81] Diagnosis: Polyneuropathy, unspecified[ICD10: G62.9] Diagnosis: Other intervertebral disc degeneration, 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] Diagnosis: Fibromyalgia[ICD10: M79.7] Belia Yandelisabellaannie HSUBELIA Yuridia DOMINGUEZ [employer] [facility] CPT-4: 69604 09/15/2015 ([id number]) OFFICE/OUTPATIENT VISIT EST Diagnosis: Disorientation, unspecified[ICD10: R41.0] Diagnosis: Headache[ICD10: R51] Diagnosis: Paresthesia of skin[ICD10: R20.2] Lidia Paredes BushraMayda ANUSHKA [employer] [facility] CPT-4: 40333 08/24/2015 ([id number]) OFFICE/OUTPATIENT VISIT EST Diagnosis: Type 2 diabetes mellitus with hyperglycemia[ICD10: E11.65] Diagnosis: Chronic obstructive pulmonary disease with acute lower respiratory infection[ICD10: J44.0] Belia BRUNSON BushraMayda ANUSHKA [employer] [facility] CPT-4: 80365 07/05/2015 ([id number]) OFFICE/OUTPATIENT VISIT EST Diagnosis: Mild intermittent asthma with (acute) exacerbation[ICD10: J45.21] Diagnosis: Chronic obstructive pulmonary disease, unspecified[ICD10: J44.9] Belia REID [facility] CPT-4: 75789 06/06/2015 ([id number]) OFFICE/OUTPATIENT VISIT EST Diagnosis: Chronic obstructive pulmonary disease with (acute) exacerbation[ICD10: J44.1] Lidia REID [facility] CPT- 4: 05652 05/23/2015 ([id number]) OFFICE/OUTPATIENT VISIT EST Diagnosis: Type 2 diabetes mellitus with hyperglycemia[ICD10: E11.65] Diagnosis: Functional dyspepsia[ICD10: K30] Belia REID [facility] CPT-4: 65470 05/05/2015 ([id number]) OFFICE/OUTPATIENT VISIT EST Diagnosis: Type 2 diabetes mellitus with hyperglycemia[ICD10: E11.65] Diagnosis: Glycosuria[ICD10: R81] Diagnosis: Urinary tract infection, site not specified[ICD10: N39.0] Belia REID [facility] CPT-4: 66030 03/30/2015 ([id number]) OFFICE/OUTPATIENT VISIT EST Diagnosis: Generalized abdominal pain[ICD10: R10.84] Diagnosis: Diarrhea, unspecified[ICD10: R19.7] Diagnosis: Urinary tract infection, site not specified[ICD10: N39.0] Diagnosis: Gastro-esophageal reflux disease without esophagitis[ICD10: K21.9] Belia REID [facility] CPT-4: 75369 02/03/2015 ([id number]) OFFICE/OUTPATIENT VISIT EST Diagnosis: Other specified noninflammatory disorders of vagina[ICD10: N89.8] Diagnosis: Follicular disorder, unspecified[ICD10: L73.9] Diagnosis: Functional dyspepsia[ICD10: K30] Diagnosis: FLU VACCINE[ICD10: Z23] Belia SMITH [facility] CPT-4: 98563 12/29/2014 ([id number]) OFFICE/OUTPATIENT VISIT EST 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] Diagnosis: RESTLESS LEGS SYNDROME[ICD9: 333.94] Diagnosis: MIGRAINE NOS/NOT INTRCBL[ICD9: 346.90] Belia REID [facility] CPT-4: 43193 09/02/2014 ([id number]) OFFICE/OUTPATIENT VISIT EST Diagnosis: Cervical radiculopathy[ICD9: 723.4] Diagnosis: Cervicalgia[ICD9: 723.1] Diagnosis: Degenerative disc disease, cervical[ICD9: 722.4] 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I[ICD9: 250.00] Belia REID [facility] CPT-4: 72324 04/01/2014 OFFICE/OUTPATIENT VISIT EST Diagnosis: Reactive airway disease[ICD9: 493.90] Belia REID [facility] CPT-4: 83452 03/16/2014 ([id number]) OFFICE/OUTPATIENT VISIT EST Diagnosis: BRONCHITIS, ACUTE[ICD9: 466.0] Diagnosis: Reactive airway disease[ICD9: 493.90] Belia REID [employer] [facility] CPT-4: 76958 03/09/2014 OFFICE/OUTPATIENT VISIT EST Diagnosis: BRONCHITIS, ACUTE[ICD9: 466.0] Diagnosis: WHEEZING[ICD9: 786.07] Huong Peguero [employer] [facility] CPT-4: 63557 03/03/2014 OFFICE/OUTPATIENT VISIT EST Diagnosis: BRONCHITIS, ACUTE[ICD9: 466.0] Diagnosis: WHEEZING[ICD9: 786.07] Huong Peguero [employer] [facility] CPT-4: 82201 03/01/2014 ([id number]) OFFICE/OUTPATIENT VISIT EST Diagnosis: GERD[ICD9: 530.81] Diagnosis: ARTHRALGIA-MULTIPLE SITES[ICD9: 719.49] Diagnosis: LUMB/LUMBOSAC DISC DEGEN[ICD9: 722.52] Diagnosis: - I - FIBROMYALGIA[ICD9: 729.1] Belia REID [employer] [facility] CPT-4: 52270 02/09/2014 ([id number]) OFFICE/OUTPATIENT VISIT EST Diagnosis: Peptic ulcer disease[ICD9: 533.90] Diagnosis: RESTLESS LEGS SYNDROME[ICD9: 333.94] Diagnosis: Neuropathy[ICD9: 355.9] Belia FREDERICK DO [facility] CPT-4: 29462 12/23/2013 ([id number]) OFFICE/OUTPATIENT VISIT EST Diagnosis: URINARY TRACT INFECTION[ICD9: 599.0] Belia REID DO [facility] CPT-4: 10529 10/30/2013 ([id number]) OFFICE/OUTPATIENT VISIT EST Diagnosis: Flank pain[ICD9: 789.00] Belia MARTINEZ [facility] CPT-4: 45307 10/21/2013 ([id number]) OFFICE/OUTPATIENT VISIT EST Diagnosis: INFLAMED SEBORR KERATOS[ICD9: 702.11] Diagnosis: Brachioradial pruritus[ICD9: 698.9] Diagnosis: ASTHMA NOS[ICD9: 493.90] Belia MARTINEZ [facility] CPT-4: 20236 10/05/2013 ([id number]) OFFICE/OUTPATIENT VISIT EST Diagnosis: HYPERTENSION[ICD9: 401.9] Diagnosis: - I - FIBROMYALGIA[ICD9: 729.1] Diagnosis: DIZZINESS/VERTIGO[ICD9: 780.4] Diagnosis: MIGRAINE NOS/NOT INTRCBL[ICD9: 346.90] Diagnosis: Diabetic peripheral neuropathy[ICD9: 250.60] Diagnosis: Flank pain[ICD9: 789.00] Belia MARTINEZ [facility] CPT-4: 00542 08/04/2013 ([id number]) OFFICE/OUTPATIENT VISIT EST Diagnosis: ALLERGIC RHINITIS[ICD9: 477.9] Belia REID DO [facility] CPT-4: 48384 07/13/2013 OFFICE/OUTPATIENT VISIT EST Diagnosis: URINARY TRACT INFECTION[ICD9: 599.0] Huong Osborne KRAIG REID DO [facility] CPT-4: 91657 07/03/2013 OFFICE/OUTPATIENT VISIT EST Diagnosis: HYPERTENSION[ICD9: 401.9] Diagnosis: URINARY TRACT INFECTION[ICD9: 599.0] Diagnosis: BACKACHE[ICD9: 724.5] Diagnosis: URINARY INCONTINENCE[ICD9: 788.30] Huong [place] CORNELLKIMI MARIE Yuridia REID [facility] CPT-4: 13170 05/27/2013 ([id number]) OFFICE/OUTPATIENT VISIT EST Diagnosis: Flank pain[ICD9: 789.00] Belia Yandelkatina BELIA BushraMayda KIESHA POOLE [facility] CPT-4: 24968 05/25/2013 ([id number]) OFFICE/OUTPATIENT VISIT EST Diagnosis: B-COMPLEX DEFIC NEC[ICD9: 266.2] Belia Humphriesisabellaannie CORNELLBELIA Yuridia REID [facility] CPT-4: 74680 05/04/2013 ([id number]) OFFICE/OUTPATIENT VISIT EST Diagnosis: ALLERGIC RHINITIS[ICD9: 477.9] Diagnosis: Vitamin B12 deficiency[ICD9: 266.2] Belia Yandelkatina CORNELLFelicita DONNA [facility]uridia [facility]: 30981 04/17/2013 ([id number]) OFFICE/OUTPATIENT VISIT EST 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I[ICD9: 250.00] Diagnosis: URINARY TRACT INFECTION[ICD9: 599.0] Diagnosis: DIZZINESS/VERTIGO[ICD9: 780.4] Diagnosis: DIARRHEA[ICD9: 787.91] Belializ Reid BELIA BushraMayda RALF Peguero [facility] CPT-4: 49684 04/06/2013 ([id number]) OFFICE/OUTPATIENT VISIT EST Diagnosis: URINARY TRACT INFECTION[ICD9: 599.0] Diagnosis: URINARY RETENTION[ICD9: 788.20] Belia Yandelkatina BELIA BushraMayda ANUSHKA [facility] CPT-4: 34705 11/10/2012 ([id number]) OFFICE/OUTPATIENT VISIT EST Diagnosis: TACHYCARDIA[ICD9: 785.0] Diagnosis: SYNCOPE AND COLLAPSE[ICD9: 780.2] Diagnosis: CONSCIOUSNS ALTERAT NEC[ICD9: 780.09] Belia Yandelkatina CALVO BushraMayda ANUSHKA [facility] CPT-4: 55136 09/02/2012 OFFICE/OUTPATIENT VISIT EST Diagnosis: TACHYCARDIA[ICD9: 785.0] Diagnosis: SYNCOPE AND COLLAPSE[ICD9: 780.2] Belia REID DO [facility] CPT-4: 83970 08/04/2012 ([id number]) OFFICE/OUTPATIENT VISIT EST Diagnosis: Loss of consciousness[ICD9: 780.09] Diagnosis: Tachycardia[ICD9: 785.0] Diagnosis: MALAISE AND FATIGUE[ICD9: 780.79] Belia REID DO [facility] CPT-4: 87344 07/21/2012 ([id number]) OFFICE/OUTPATIENT VISIT EST Diagnosis: BRONCHITIS, ACUTE[ICD9: 466.0] Diagnosis: ASTHMA NOS[ICD9: 493.90] Belia POOLE [facility] CPT-4: 58965 07/02/2012 ([id number]) OFFICE/OUTPATIENT VISIT EST Diagnosis: CEPHALGIA[ICD9: 784.0] Belia Peguero [facility] CPT-4: 25476 06/25/2012 ([id number]) OFFICE/OUTPATIENT VISIT EST Diagnosis: GERD[ICD9: 530.81] Diagnosis: DIARRHEA[ICD9: 787.91] Diagnosis: URINARY TRACT INFECTION[ICD9: 599.0] Diagnosis: ASTHMA NOS[ICD9: 493.90] Diagnosis: ALLERGIC RHINITIS[ICD9: 477.9] Belia REID [facility] CPT-4: 83836 06/24/2012 ([id number]) OFFICE/OUTPATIENT VISIT EST Diagnosis: MIGRAINE NOS/NOT INTRCBL[ICD9: 346.90] Diagnosis: TREMOR NEC[ICD9: 333.1] Diagnosis: CHRONIC PAIN SYNDROME[ICD9: 338.4] Belia BASS MARIE Yuridia REID [employer] [facility] CPT-4: 87593 05/20/2012 ([id number]) OFFICE/OUTPATIENT VISIT EST Diagnosis: DIZZINESS/VERTIGO[ICD9: 780.4] Diagnosis: PALPITATIONS[ICD9: 785.1] Diagnosis: TREMOR NEC[ICD9: 333.1] Diagnosis: ANXIETY STATE NOS[ICD9: 300.00] Diagnosis: POSTTRAUMATIC STRESS DISORDER[ICD9: 309.81] Belia CORNELLLINE Yuridia REID [employer] [facility] CPT-4: 79038 05/08/2012 ([id number]) OFFICE/OUTPATIENT VISIT EST Diagnosis: MIGRAINE NOS/NOT INTRCBL[ICD9: 346.90] Diagnosis: FIBROMYALGIA[ICD9: 729.1] Diagnosis: SYNCOPE AND COLLAPSE[ICD9: 780.2] Diagnosis: Diabetic peripheral neuropathy[ICD9: 250.60] Belia TomlinsonMayda LUIS [email or web address] CPT-4: 31214 04/22/2012 OFFICE/OUTPATIENT VISIT EST Diagnosis: ROTATOR CUFF DIS NEC[ICD9: 726.19] Diagnosis: JOINT PAIN-SHLDER[ICD9: 719.41] Diagnosis: DYSPEPSIA[ICD9: 536.8] Belia CORNELLLINE BushraMayda RALF Peguero [email or web address] CPT-4: 28161 02/13/2012 ([id number]) OFFICE/OUTPATIENT VISIT EST Diagnosis: MIGRAINE NOS/NOT INTRCBL[ICD9: 346.90] Diagnosis: GERD[ICD9: 530.81] Diagnosis: DYSPEPSIA[ICD9: 536.8] Belia CORNELLLINE BushraMayda RALF [employer] CPT-4: 19313 01/28/2012 OFFICE/OUTPATIENT VISIT EST Diagnosis: CEPHALGIA[ICD9: 784.0] Diagnosis: MIGRAINE NOS/NOT INTRCBL[ICD9: 346.90] Diagnosis: GERD[ICD9: 530.81] Diagnosis: INSOMNIA NOS[ICD9: 780.52] Belia Yandelisabellaannie HSUBELIA BushraMayda RAND DAILEYER [email or web address] CPT-4: 94312 12/26/2011 ([id number]) OFFICE/OUTPATIENT VISIT EST Diagnosis: CEPHALGIA[ICD9: 784.0] Diagnosis: MIGRAINE NOS/NOT INTRCBL[ICD9: 346.90] Diagnosis: MALAISE AND FATIGUE[ICD9: 780.79] Diagnosis: FIBROMYALGIA[ICD9: 729.1] Diagnosis: ALLERGIC RHINITIS[ICD9: 477.9] Belia Anushka BELIA Bushra Mayda LUIS [email or web address] CPT-4: 56744 11/14/2011 ([id number]) OFFICE/OUTPATIENT VISIT EST Diagnosis: MALAISE AND FATIGUE[ICD9: 780.79] Diagnosis: MUSCLE WEAKNESS-GENERAL[ICD9: 728.87] Diagnosis: MIGRAINE NOS/NOT INTRCBL[ICD9: 346.90] Diagnosis: JOINT PAIN-SHLDER[ICD9: 719.41] Belia REID [facility] CPT-4: 64971 09/12/2011 ([id number]) OFFICE/OUTPATIENT VISIT EST Diagnosis: CONCUSSION[ICD9: 850.9] Diagnosis: Ataxia[ICD9: 781.3] Diagnosis: DIZZINESS/VERTIGO[ICD9: 780.4] Belia REID [facility] CPT-4: 18869 08/15/2011 ([id number]) OFFICE/OUTPATIENT VISIT EST Diagnosis: THROMBOPHLEBITIS[ICD9: 451.9] Diagnosis: Subacromial bursitis[ICD9: 726.19] Diagnosis: ALLERGIC RHINITIS[ICD9: 477.9] Diagnosis: Lipoma[ICD9: 214.9] [facility]: 40877 08/09/2011 ([id number]) OFFICE/OUTPATIENT VISIT EST Diagnosis: THROMBOPHLEBITIS[ICD9: 451.9] Diagnosis: Arm pain[ICD9: 729.5] Diagnosis: Clostridium difficile colitis[ICD9: 008.45] Diagnosis: URINARY TRACT INFECTION[ICD9: 599.0] [facility]: 43825 07/03/2011 ([id number]) OFFICE/OUTPATIENT VISIT EST Diagnosis: ARTHRALGIA-MULTIPLE SITES[ICD9: 719.49] Diagnosis: Muscle cramp[ICD9: 729.82] Diagnosis: INSOMNIA NOS[ICD9: 780.52] [facility]: 50431 06/04/2011 OFFICE/OUTPATIENT VISIT EST Diagnosis: Headache[ICD9: 784.0] Diagnosis: Allergic rhinitis[ICD9: 477.9] [facility]: 25730 05/03/2011 OFFICE/OUTPATIENT VISIT EST Diagnosis: LUMB/LUMBOSAC DISC DEGEN[ICD9: 722.52] Diagnosis: MIGRAINE NOS/NOT INTRCBL[ICD9: 346.90] Diagnosis: CHRONIC PAIN SYNDROME[ICD9: 338.4] Diagnosis: RESTLESS LEGS SYNDROME[ICD9: 333.94] Belia REID [facility] CPT-4: 20731 04/05/2011 OFFICE/OUTPATIENT VISIT EST Diagnosis: MIGRAINE NOS/NOT INTRCBL[ICD9: 346.90] Diagnosis: GERD[ICD9: 530.81] Belia REID [facility] CPT-4: 33654 03/08/2011 OFFICE/OUTPATIENT VISIT EST Diagnosis: URINARY TRACT INFECTION[ICD9: 599.0] Diagnosis: Vertigo[ICD9: 780.4] Diagnosis: GERD[ICD9: 530.81] [facility]: 88868 01/24/2011 OFFICE/OUTPATIENT VISIT EST Diagnosis: Hypotension[ICD9: 458.9] Diagnosis: Syncopal episodes[ICD9: 780.2] Diagnosis: MIGRAINE NOS/NOT INTRCBL[ICD9: 346.90] Diagnosis: MALAISE AND FATIGUE[ICD9: 780.79] [facility]: 72173 01/02/2011 OFFICE/OUTPATIENT VISIT EST Diagnosis: Tinea cruris[ICD9: 110.3] Diagnosis: Intertrigo[ICD9: 695.89] Diagnosis: MIGRAINE NOS/NOT INTRCBL[ICD9: 346.90] Belia HSUQ [facility] CPT-4: 59110 12/07/2010 OFFICE/OUTPATIENT VISIT EST Diagnosis: PALPITATIONS[ICD9: 785.1] Diagnosis: ANXIETY STATE NOS[ICD9: 300.00] [facility] CPT[facility]: 65241 11/16/2010 OFFICE/OUTPATIENT VISIT EST Diagnosis: URINARY TRACT INFECTION[ICD9: 599.0] Diagnosis: MIGRAINE NOS/NOT INTRCBL[ICD9: 346.90] Iraida CASILLAS [facility] CPT-[facility]: 78290 11/02/2010 OFFICE/OUTPATIENT VISIT EST Diagnosis: ALLERGIC RHINITIS[ICD9: 477.9] Diagnosis: ANXIETY STATE NOS[ICD9: 300.00] Belia [facility] CPT-4: 07737 10/18/2010 OFFICE/OUTPATIENT VISIT EST Belia [facility] CPT- 4: 33210 09/19/2010 OFFICE/OUTPATIENT VISIT EST Belia [facility] CPT- 4: 03622 09/06/2010 ([id number]) OFFICE/OUTPATIENT VISIT EST Belia CASILLAS [facility] CPT-4: 73295 08/10/2010 ([id number]) OFFICE/OUTPATIENT VISIT EST Belia CASILLAS [facility] CPT-4: 01681 05/11/2010 ([id number]) OFFICE/OUTPATIENT VISIT, EST Belia MEJIALINE [facility] CPT-4: 48286 04/06/2010 ([id number]) OFFICE/OUTPATIENT VISIT, EST Belia HSU [facility] CPT-4: 95189 02/09/2010 ([id number]) OFFICE/OUTPATIENT VISIT, EST Belia HSU [facility] CPT-4: 56224 01/05/2010 ([id number]) OFFICE/OUTPATIENT VISIT, EST Belia HSU [facility] CPT-4: 26387 12/07/2009 ([id number]) OFFICE/OUTPATIENT VISIT, EST Belia [facility] CPT-4: 59507 11/08/2009 ([id number]) OFFICE/OUTPATIENT VISIT, EST Beliahanna [facility] CPT-4: 56846 10/24/2009 ([id number]) OFFICE/OUTPATIENT VISIT, EST Beliahanna [facility] CPT-4: 78124 07/25/2009 ([id number]) OFFICE/OUTPATIENT VISIT, EST Belia [facility] CPT-4: 00175 05/26/2009 Plan of Care Planned Activity Notes [...] new home sleep study on patient through [facility] to assess severity of symptoms, patient does [...] ICD-10 : R10.2 08/04/2019 Appointment: Pattie Sotomayor [address] [place], [place] [id number] ACUTE ILLNESS 08/04/2019 Visit Diagnosis Plan: Inspiratory stridor Discussion: Continue oxygen via NC at 2 L Continue ativan at QID Follow Up: 4 weeks ICD-9 : 786.1 ICD-10 : R06.1 07/06/2019 Visit Diagnosis Plan: Diarrhea Discussion: Restart Col estid at once daily ICD-9 : 787.91 ICD-10 : R19.7 07/06/2019 Appointment: Belia Reid WPtel: [address] [place] [address] TELEMEDICINE 07/06/2019 Visit Diagnosis Plan: Left leg [...] R06.00 06/24/2019 Appointment: Belia Reid WPtel: [address] [place] [address] TELEMEDICINE 06/24/2019 Visit Diagnosis Plan: Colitis Discussion: Levaquin/[place] gyl [place] Diet ICD-9 : 558.9 ICD-10 : K52.9 06/16/2019 Visit Diagnosis Plan: Acute bronchitis Discussion: Cov er with levaquin Increase SVNs with albuterol to QID Has oxygen using q HS routinely and prn To ER if oxygen levels drop or worsening respiratory symptoms ICD-9 : 466.0 ICD-10 : J20.9 06/16/2019 Appointment: Belia Reid WPtel: [facility] [place] [address] TELEMEDICINE 06/16/2019 Patient Education: Levaquin- [employer] Coupon [id number] [email or web address] Completed 06/16/2019 Visit Diagnosis Plan: Diarrhea Discussion: Vancomycin for 10 days and notify if not improving or worsening BLAND diet Hydrate ICD-9 : 787.91 ICD-10 : R19.7 06/08/2019 Appointment: Belia Reid WPtel: [address] [place] [address] TELEMEDICINE 06/08/2019 Visit Diagnosis Plan: Colitis Discussion: Flagyl plus cipro to cover for both colitis and UTI Notify or to ER if worsening ICD-9 : 558.9 ICD-10 : K52.9 05/26/2019 Visit Diagnosis Plan: Acute febrile illness Discussion : Notify if worsens ICD-9 : 780.60 ICD-10 : R50.9 05/26/2019 Appointment: Belia Reid WPtel: [address] [place] [address] TELEMEDICINE 05/26/2019 Appointment: Pattie Sotomayor [address] RESCHEDULED 05/18/2019 Visit Diagnosis Plan: Chronic [...] J44.9 05/13/2019 Appointment: Belia Reid WPtel: [address] [place] [address] Hospital Follow Up 05/13/2019 Visit Diagnosis Plan: COUGH Discussion: Check CT scan of chest ICD-9 : 786.2 ICD-10 : R05 05/06/2019 Visit Diagnosis Plan: Stridor Discussion: Add Trelagy 1 p daily Add Singulair May need to see new print journalist ICD-9 : 786.1 ICD-10 : R06.1 05/06/2019 Appointment: Belia Reid WPtel: [address] [place], [place] [address] FOLLOW UP 05/06/2019 Patient Education: Singulair- OptimizeRX Coupon [id number] https://www.Gengo/samplemd/resources/getResource/61/1110250v-l96t-34s3-eq Completed 05/06/2019 Appointment: Belia Reid WPtel: [address] [place], [place] [phone] US RESCHEDULED 04/30/2019 Visit Diagnosis Plan: Stridor [...] : G25.5 04/29/2019 Appointment: Belia Reid WPtel: [address] [place], [place] [address] Hospital Follow Up 04/29/2019 Patient Education: Valium- OptimizeRX Coupon [id number] https://www.Auto Load Logic.Comparisign.com/samplemd/resources/getResource/61/t05256os-913c-8k46-3a Completed 04/29/2019 Visit Diagnosis Plan: Flank pain [...] ICD-10 : R63.5 04/16/2019 Appointment: Pattie Sotomayor [address] [place], [place] [id number] ACUTE ILLNESS 04/16/2019 Patient Education: cyclobenzaprine- OptimizeRX Coupon [id number] https://www.Auto [employer].com/samplemd/resources/getResource/61/lj19q9p5-8930-7346-n4 Completed 04/16/2019 Visit Diagnosis Plan: Migraine, unspecif ied, not intractable, without status migrainosus Discussion: Increase gabapentin to 600mg po BID ICD-9 : 346.90 ICD-10 : G43.909 04/08/2019 Visit Diagnosis Plan: Generalized pruritus Discussion: Hydroxyzine 25mg po TID for itching and anxiety ICD-9 : 698.9 ICD-10 : L29.9 04/08/2019 Appointment: Belia Reid WPtel: [address] [place] [address] ACUTE ILLNESS 04/08/2019 Visit Diagnosis Plan: Cervicalgia [...] M75.52 01/22/2019 Appointment: Belia Reid WPtel: [address] [place] [address] Hospital Follow Up 01/22/2019 Visit Diagnosis Plan: Abdominal pain Discussion: urine culture sent to assess for any infection. rocephin given in office to cover for pyelonephritis. instructed to push fluids. call office with any new or worsening symptoms. ICD-9 : 789.00 ICD-10 : R10.9 01/07/2019 Appointment: Pattie Sotomayor [address] [place] [address] ACUTE ILLNESS 01/07/2019 Visit Diagnosis Plan: Low back pain Discussion: Stat C T of abdomen/pelvis now ICD-9 : 724.2 ICD-10 : M54.5 12/24/2018 Appointment: Belia Reid WPtel: [address] [place] [address] FOLLOW UP 12/24/2018 Visit Diagnosis Plan: Migraine, [...] : M79.7 11/20/2018 Appointment: Belia Reid WPtel: [facility] [place] [id number] ACUTE ILLNESS 11/20/2018 Patient Education: baclofen- OptimizeRX Coupon [id number] https://www.Auto [employer] Logic.Comparisign.com/samplemd/resources/getResource/61/9f6314r1-hw2i-64bw-02 Completed 11/20/2018 Visit Diagnosis Plan: Migraine, unspecif ied, intractable, without status migrainosus Discussion: toradol/phenergan given in o ffice (60 mg toradol, 12.5 mg phenergan). instructed to call if no improvement or worsening. instructed to follow up with newspaper clipper since headaches are occurring more frequently to make sure vision is not the cause. ICD-9 : 346.91 ICD-10 : G43.919 11/04/2018 Visit Diagnosis Plan: Acute sinusitis, unspecified Dis cussion: zithromax prescribed to cover for sinus infection due to length of symptoms and clinincal s/s. ICD-9 : 461.9 ICD-10 : J01.90 11/04/2018 Appointment: Pattie Sotomayor [address] [place], [place] [id number] ACUTE ILLNESS 11/04/2018 Appointment: Belia Reid WPtel: [facility] [place] [id number] US CANCELED 09/24/2018 Visit Diagnosis Plan: Type 2 diabetes me llitus with diabetic neuropathy, unspecified Discussion: Retry gabapentin 300mg po q HS ICD-9 : 250.60 ICD-10 : E11.40 09/18/2018 Visit Diagnosis Plan: Vitamin D deficiency, unspecifie d Discussion: Increase Vitamin D3 to 10,000 u daily ICD-9 : 268.9 ICD-10 : E55.9 09/18/2018 Visit Diagnosis Plan: Encounter for [facility] adult medical examination without abnormal findings Discussion: [...] : I10 09/18/2018 Appointment: Belia Reid WPtel: [facility] Annual Well Visit 09/18/2018 Patient Education: gabapentin- OptimizeRX Coupon [id number] https://www.Gengo/samplemd/resources/getResource/61/9l29bt82-0lk4-1atw-w9 Completed 09/18/2018 Visit Diagnosis Plan: Pain in [...] ICD-10 : M54.89 09/08/2018 Appointment: Pattie Sotomayor [address] [place], [place] [address] ACUTE ILLNESS 09/08/2018 Patient Education: prednisone- OptimizeRX Coupon [id number] https://www.Auto Load Logic.Comparisign.com/samplemd/resources/getResource/61/8n2gz97x-7690-94w5-ag Completed 09/08/2018 Visit Diagnosis Plan: Pruritus, unspecified [...] E10.9 08/20/2018 Appointment: Bel[facility] Reid [facility]Ptel[facility] [address] [facility] [facility] 08/20/2018 Patient Education: Lexapro- OptimizeRX Coupon [id number] Completed 08/20/2018 Patient Education: hydroxyzine HCl- OptimizeRX Coupon [id number] Completed 08/20/2018 Care Plan: MAMMOGRAM SCREENING [facility] : 2 6347-5 Pending 08/20/2018 Visit Diagnosis Plan: Paroxysmal atrial fibrillation D iscussion: Discuss eliquis need with cardiology at [facility] due to cost ICD-9 : 427.31 ICD-10 : I48.0 06/19/2018 Visit Diagnosis Plan: Hypotension due to drugs Discuss ion: Discussed decreasing cardizem dose due to low BP and edema but sees cardiology next week Follow Up: 1 months ICD-9 : 458.8 ICD-10 : I95.2 06/19/2018 Appointment: Belia Reid WPtel: [phone] [facility] FOLLOW [facility] 06/19/2018 Visit Diagnosis Plan: Essential [...] R61 06/09/2018 Appointment: Belia Reid WPtel: [address] [place] [address] FOLLOW UP 06/09/2018 Care Plan: CHEST X-RAY 2VW FRONTAL&LATL LOINC : 86074-4 Pending 05/26/2018 Visit Diagnosis Plan: Supraventricular tachycardia [...] R53.1 05/21/2018 Appointment: Belia Reid WPtel: [address] [place] [address] Hospital Follow Up 05/21/2018 Visit Diagnosis Plan: Cervical disc diso rder with radiculopathy, unspecified cervical region Discussion: Scheduled for surgery on 06/02 10/[address] Faulkner ICD-9 : 722.0 ICD-10 : M50.10 04/16/2018 Appointment: Belia Reid WPtel: [address] [place] [address] Hospital Follow Up 04/16/2018 Visit Diagnosis Plan: [...] ICD-10 : G43.919 04/01/2018 Appointment: Pattie Sotomayor [address] [place] [address] ACUTE ILLNESS 04/01/2018 Appointment: Belia Reid WPtel: [address] [place] [address] 03/17/2018 Visit Diagnosis Plan: Chronic obstructiv e [...] : E11.65 03/06/2018 Appointment: Belia Reid WPtel: [facility] [address] Hospital Follow Up 03/06/2018 Visit Diagnosis Plan: Cervicalgia Discussion: spoke wi th dr. reid about patient. increased gabapentin to bid and started on celebrex bid. tramadrol rx written out to take prn. keep scheduled appt next week for myelogram. ICD-9 : 723.1 ICD-10 : M54.2 02/05/2018 Appointment: Pattie Sotomayor [address] [place] [address] ACUTE ILLNESS 02/05/2018 Care Plan: X-RAY EXAM NECK SPINE 4/5VWS cervical LOINC : 75422-2 Pending 01/21/2018 Visit Diagnosis Plan: Candidiasis of [...] ICD-10 : M54.2 01/20/2018 Appointment: Pattie Sotomayor [address] [place] [address] ACUTE ILLNESS 01/20/2018 Visit Diagnosis Plan: Pain in thoracic spine Discussio n: Proceed with CT scan of thoracic spine Will likely need PT ICD-9 : 724.1 ICD-10 : M54.6 12/25/2017 Appointment: Belia Reid WPtel: [address] [place] [address] FOLLOW UP 12/25/2017 Care Plan: CT THORAX W/O DYE LOINC : 473 66-0 Pending 12/25/2017 Visit Diagnosis Plan: Pain in thoracic spine Discussio n: Stretches Alternated heat/ice Topical aspercreme with lidocaine Flexeril Recheck 1 week Flu and Pneumovax given ICD-9 : 724.1 ICD-10 : M54.6 12/17/2017 Appointment: Belia Reid WPtel: [address] [place] [address] ACUTE ILLNESS 12/17/2017 Patient Education: Patient Medication [...] J44.1 10/30/2017 Appointment: Belia Reid WPtel: [address] [place] [address] FOLLOW UP 10/30/2017 Patient Education: Patient Medication Summary Completed 10/30/2017 Visit Diagnosis Plan: Chronic obstructiv e pulmonary disease with acute lower respiratory infection Discussion: Continue SVNs with albuterol q4hrs Add Trelagy 1 inhalation daily Finish steroids Increase water intake Follow Up: 1 weeks ICD-9 : 496 ICD-10 : J44.0 10/23/2017 Appointment: Belia Reid WPtel: [address] [place] [address] WORK IN 10/23/2017 Patient Education: Patient Medication Summary Completed 10/23/2017 Appointment: Belia Reid WPtel: [address] [place] [address] NO SHOW 10/16/2017 Visit Diagnosis Plan: Confusional [...] E11.65 09/17/2017 Appointment: Belia Reid WPtel: [address] [place] [address] Annual Well Visit 09/17/2017 Patient Education: Patient Medication Summary Completed 09/17/2017 Appointment: Belia Reid WPtel: [address] [place], [place] [phone] US INJECTION 08/26/2017 Patient Education: Patient Medication Summary Completed 08/26/2017 Appointment: Belia Reid WPtel: [address] [place], [place] [phone] US CANCELED 07/31/2017 Visit Diagnosis Plan: Encounter [...] ICD-10 : J20.9 07/19/2017 Appointment: Pattie Sotomayor [address] [place], [place] [id number] ACUTE ILLNESS 07/19/2017 Patient Education: Patient Medication Summary Completed 07/19/2017 Care Plan: MAMMOGRAM SCREENING LOINC : 2 6347-5 Pending 07/19/2017 Patient Education: Patient Medication Summary Completed 06/05/2017 Care Plan: LIPID PANEL LOINC : 66728-5 Pending 06/05/2017 Care Plan: A1C HPLC LOINC : 83521-0 Pending 06/05/2017 Visit Diagnosis Plan: Rash and [...] ICD-10 : R21 05/29/2017 Appointment: Pattie Sotomayor [address] [place], [place] [address] FOLLOW UP 05/29/2017 Patient Education: Patient Medication Summary Completed 05/29/2017 Visit Diagnosis Plan: Tinea corporis Discussion: Diflu can and topical nystatin Follow Up: 2 weeks ICD-9 : 110.5 ICD-10 : B35.4 05/07/2017 Visit Diagnosis Plan: Diarrhea, unspecified Discussion : Diflucan Cholestyramine Recheck 2weeks ICD-9 : 787.91 ICD-10 : R19.7 05/07/2017 Appointment: Belia Reid WPtel: [phone] [facility] FOLLOW UP 05/07/2017 Patient Education: Patient Medication Summary Completed 05/07/2017 Appointment: Belia Reid WPtel: [address] [place], [place] [phone] US RESCHEDULED 04/30/2017 Visit Diagnosis Plan: Chronic obstructiv e pulmonary disease with (acute) exacerbation Discussion: Finish prednisone Continue S VNS with albuterol ICD-9 : 491.21 ICD-10 : J44.1 03/18/2017 Visit Diagnosis Plan: Stridor Discussion: Increase Ati van 0.5mg po to TID routinely for next week then can go back to prn ICD-9 : 786.1 ICD-10 : R06.1 03/18/2017 Appointment: Belia Reid WPtel: [address] [place], [place] [phone] ER Follow UP 03/18/2017 Patient Education: Patient [...] E11.65 02/27/2017 Appointment: Belia Reid WPtel: [address] [place], [place] [phone] US FOLLOW UP 02/27/2017 Patient Education: Patient [...] ICD-10 : E11.65 02/22/2017 Appointment: Pattie Sotomayor [address] [place], [place] [address] ACUTE ILLNESS 02/22/2017 Patient Education: Patient Medication [...] J18.9 01/23/2017 Appointment: Belia Reid WPtel: [address] [place] [address] ER Follow UP 01/23/2017 Patient Education: Patient Medication Summary Completed 01/23/2017 Appointment: Pattie Sotomayor [address] [place] [address] CANCELED 01/17/2017 Appointment: Pattie Sotomayor [address] [place] [address] Annual Well Visit 01/14/2017 Visit Diagnosis Plan: Type 2 diabetes mellitus with hy perglycemia Discussion: Check CMP, HbA1C Flu shot and Prevnar 13 given Follow Up: 3 months ICD-9 : 250.02 ICD-10 : E11.65 12/20/2016 Visit Diagnosis Plan: Localized edema Discussion: Low Na diet Compression socks/Elevate feet ICD-9 : 782.3 ICD-10 : R60.0 12/20/2016 Appointment: Belia Reid WPtel: [facility] [place] [address] [place] FOLLOW UP 12/20/2016 Patient Education: Patient Medication Summary Completed 12/20/2016 Patient Education: Patient Medication Summary Completed 10/10/2016 Visit Plan: Xrays of cervical, thoracic and lumbar spine at [facility] for Mobic (stop NSAIDS except Tylenol) and Flexeril UA sent for C&S Using SVN Call in 2-3 days if pain not improved or any worsening 10/08/2016 Appointment: Celeste Ferreira WPtel: [phone] [facility] ACUTE ILLNESS 10/08/2016 Patient Education: Patient [...] : E11.65 09/19/2016 Appointment: Belia Reid WPtel: [facility] 09/18 confirmed`sl FOLLOW UP 09/19/2016 [...] R10.84 08/20/2016 Appointment: Belia Reid WPtel: [address] [facility] 08/16 confirmed~sl FOLLOW UP 08/20/2016 Patient Education: [...] J44.9 06/19/2016 Appointment: Belia Reid WPtel: [address] [place], [place] [phone] 06/18 confirmed ~ Hospital Follow Up 06/19/2016 [...] Z87.440 06/04/2016 Appointment: Belia Reid WPtel: [address] [place], [place] [phone] 06/01 confirmed~ FOLLOW UP 06/04/2016 Patient Education: [...] R06.1 05/02/2016 Appointment: Belia Reid WPtel: [address] [place], [place] [phone] 05/01 confirmed ~ Hospital Follow Up 05/02/2016 [...] N39.0 04/03/2016 Appointment: Belia Reid WPtel: [address] [place] [address] 04/02 confirmed~ Hospital Follow Up 04/03/2016 Patient Education: Patient Medication Summary Completed 04/03/2016 Visit Plan: Lungs are clear Her symptoms and exam are all upper airway restriction/constriction Can try supportive care Rx as above Follow up PRN 02/29/2016 Appointment: Lidia Hwang [address] [place] [address] ACUTE ILLNESS 02/29/2016 Patient Education: Patient Medication Summary Completed 02/29/2016 Visit Plan: Toradol/Phenergan today for Migraine Change to Clindamycin to cover lactobacillus for UTI Cover with flagyl due to hx of C. Diff 02/02/2016 Appointment: Belia Reid WPtel: [address] [place] [address] 01/31 confirmed`sl ACUTE ILLNESS 02/02/2016 Patient Education: Patient Medication Summary Completed 02/02/2016 Visit Plan: Increase neurontin to 300mg q AM and 600mg q PM Discussed neurology re-evaluation Flu shot given Need to check on Pneumonia shot Rx written out for albuterol 01/05/2016 Appointment: Belia Reid WPtel: [address] [place] [address] 01/03 confirmed ~sl Annual Well Visit 01/05/2016 Patient Education: Patient Medication Summary Completed 01/05/2016 Visit Plan: Cipro Culture urine hydrate Flexeril refilled Alternate heat and ice for back Increase gabapentin to 300mg po BID Notify if worsens 12/05/2015 Appointment: Belia Reid WPtel: [address] [place], [place] [phone] 11/30 confirmed~sl ACUTE ILLNESS 12/05/2015 Patient Education: Patient Medication Summary Completed 12/05/2015 Patient Education: Patient Medication Summary Completed 10/27/2015 Care Plan: [place] : [address]-4 Pending 10/27/2015 Care Plan: A1C HPLC LOINC : 78331-9 Pending 10/27/2015 Visit Plan: Lungs are CTA today and is f eeling improved overall Finish meds as ordered Continue inhalers and neb treatments Discussed migraine treatment options She does not feel she needs anything additional added today Refill of Januvia sent since no samples are available today 10/26/2015 Appointment: Lidia Hwang [address] [place] [address] Hospital Follow Up 10/26/2015 Appointment: Lidia Hwang [address] [place] [address] CANCELED 10/26/2015 Patient Education: Patient Medication Summary Completed 10/26/2015 Patient Education: Januvia - 18+ - KENNETH - No [place] Completed 10/26/2015 Visit Plan: Office dip still abnormal Cu lture pending Switch to cipro - stop macrobid Push fluids - avoid caffeine Will call with culture results when available Follow up if worsening 10/05/2015 Appointment: Lidia Hwang [address] [place] [address] ER Follow UP 10/05/2015 Patient Education: Patient Medication Summary Completed 10/05/2015 Visit Plan: Proceed with PT for document ation of ROM and strength of all extremities Proceed with Power Mobility Device Trial of neurontin 300mg q HS--lyrica helped but patient unable to afford Recheck 1month 09/15/2015 Appointment: Belia Reid WPtel: [phone] [facility] 09/13 confirmed~sl SPECIAL 09/15/2015 Patient Education: Patient Medication Summary Completed 09/15/2015 Visit Plan: Fille out Loan Discharge Pap erwork for total and permanent disability 08/25/2015 Patient Education: Patient Medication Summary Completed 08/25/2015 Visit Plan: Discussed with Dr Anushka Haywood at [facility] of head Will get last date of carotid doppler from her systems integrator and update if needed 08/24/2015 Appointment: Lidia Hwang [address] [place], [place] [id number] 08/22 confirmed~sl ACUTE ILLNESS 08/24/2015 Patient Education: Patient Medication Summary Completed 08/24/2015 Patient Education: Patient Medication Summary Completed 08/24/2015 Care Plan: US EXAM OF HEAD AND NECK carotid Ultrasound LOIN C : 42101-1 Pending 08/24/2015 Visit Plan: Long discussion about diet A ccuchecks daily Check HbA1C, CMP Change requip to mirapex 07/05/2015 Appointment: Belia Reid WPtel: [address] [place] [address] 07/03 confirmed ~sl FOLLOW UP 07/05/2015 Patient Education: Patient Medication Summary Completed 07/05/2015 Visit Plan: Add Breo ellipta 100 1 p BID Continue SVNs with duoneb QID 06/06/2015 Appointment: Belia Reid WPtel: [address] [place] [address] Patient is calling for a ride, then retu rning our call.-sp 06/01 called and patient stated she will know saturday if she can get a ride~sl 06/05 [facility] Follow Up 06/06/2015 Patient Education: Patient [...] not improving 05/23/2015 Appointment: Huong Osborne WPtel: [facility] ACUTE ILLNESS 05/23/2015 Appointment: Lidia Hwang [address] [facility] ER Follow UP 05/23/2015 Patient Education: Patient Medication Summary Completed 05/23/2015 Visit Plan: Check pancreatic enzymes and US of pancreas as patient can't understand why she has diabetes since has no family history Discussed weight, diet, exercise all play an important role in diabetes and are risk factors as well Continue Januvia and accuchecks daily 05/05/2015 Appointment: Belia Reid WPtel: [address] [place], [place] [phone] US FOLLOW UP 05/05/2015 Patient Education: Patient Medication Summary Completed 05/05/2015 Care Plan: US EXAM ABDOM COMPLETE LOINC : 32874-0 Ordered 05/05/2015 Visit Plan: Start Januvia 100mg daily [place] with diflucan and culture urine Accuchecks daily alternating times Recheck 6weeks 03/30/2015 Appointment: Belia Reid WPtel: [address] [place], [place] [address] 03/29 confirmed~lb FOLLOW UP 03/30/2015 Patient Education: Patient Medication Summary Completed 03/30/2015 Appointment: Belia Reid WPtel: [address] [place] [address] 03/01 needs reschedule due to payment and insurance ~sl FOLLOW UP 03/02/2015 Visit Plan: Patient was just in ER last night so has not filled scripts yet Start Carafate and Flagyl and Cipro Add Hyophen 1 po BID Recheck 1mo 02/03/2015 Appointment: Belia Reid WPtel: [address] [place], [place] [phone] [place] 02/02lm ~sl...02/03/15 appt confirmed cn ACUTE I LLNESS 02/03/2015 Patient Education: Patient Medication Summary Completed 02/03/2015 Visit Plan: Warm soaks to vaginal area K elex and Diflucan and observe Zofran to use prn 12/29/2014 Appointment: Belia Reid WPtel: [address] [place], [place] [phone] 12/28 Confirmed ~sl ACUTE ILLNESS 12/29/2014 Patient Education: Patient Medication Summary Completed 12/29/2014 Appointment: Huong Osborne WPtel: [address] [place], [place] [phone] FOLLOW UP 09/24/2014 Appointment: Belia Reid WPtel: [address] [place], [place] [phone] 09/15 confirmed -mf FOLLOW UP 09/16/2014 Visit Plan: Increase requip to 2mg po BI D Increase lyrica to 225mg total a day by adding an extra 75mg in AM Recheck in 2weeks Continue to patch left eye while sleeping 09/02/2014 Appointment: Belia Reid WPtel: [address] [place], [place] [address] 09/01 appt confirmed Hospital Follow Up 09/02 Patient Education: Patient Medication Summary Completed 09/02/2014 Visit Plan: To Yessenia dominguez observat ion to R/O CVA 08/25/2014 Appointment: Huong Osborne WPtel: [address] [place], [place] [phone] ACUTE ILLNESS 08/25/2014 Patient Education: Patient Medication Summary Completed 08/25/2014 Referral: Aaron Jonas WPtel: [facility] [address] [place] location Initiated 04/26/2014 Referral: Brian Srinivasan WPtel: [id number] Referral Initiated 04/20/2014 Appointment: Belia Reid WPtel: [address] [place], [place] [phone] ER Follow UP 04/01/2014 Patient Education: Patient Medication Summary Completed 04/01/2014 Care Plan: MYELOGRAPHY NECK SPINE LOINC : 25196-4 Ordered 04/01/2014 Visit Plan: Continue Symbicort 160 at 2p BID Continue SVNs with duoneb at least QID Finish Levaquin Recheck 1mo on lyrica 03/16/2014 Appointment: Belia Reid WPtel: [address] [place], [place] [phone] 03/15 voicemail FOLLOW UP 03/16/2014 Patient Education: Patient Medication Summary Completed 03/16/2014 Visit Plan: Restart SVNs with duoneb QID Repeat prednisone Levaquin Continue symbicort Keep lyrica at same dose Recheck 1week 03/09/2014 Appointment: Belia Reid WPtel: [address] [place], [place] [phone] FOLLOW UP 03/09/2014 Patient Education: Patient Medication Summary Completed 03/09/2014 Appointment: Belia Reid WPtel: [address] [place], [place] [phone] 03/03 showed up 15 minutes late for appt -- put her on Huong's side for 10:45am FORGIVEN PER DR FOLLOW UP 03/03/2014 Appointment: Huong Osborne WPtel: [address] [place] [address] FOLLOW UP 03/03/2014 Patient Education: Patient Medication Summary Completed 03/03/2014 Appointment: Huong Osborne WPtel: [address] [place], [place] [phone] ER Follow UP 03/01/2014 Patient Education: Patient Medication Summary Completed 03/01/2014 Visit Plan: Add carafate for this next m onth Increase lyrica to 150mg q HS 02/09/2014 Appointment: Belia Reid WPtel: [address] [place], [place] [phone] [place] [address] Follow Up 02/09/2014 Patient Education: Patient Medication Summary Completed 02/09/2014 Visit Plan: Increase omeprazole back to 40mg po BID Use requip in AM and add lyrica 75mg q HS Recheck 1mo 12/23/2013 Appointment: Belia Reid WPtel: [address] [place], [place] [phone] FOLLOW UP 12/23/2013 Patient Education: Patient Medication Summary Completed 12/23/2013 Patient Education: Patient Medication Summary Completed 12/04/2013 Appointment: Belia Reid WPtel: [address] [place], [place] [phone] UA 10/30/2013 Patient Education: Patient Medication Summary Completed 10/30/2013 Appointment: Belia Reid WPtel: [address] [place], [place] [phone] UA 10/21/2013 Patient Education: Patient Medication Summary Completed 10/21/2013 Visit Plan: Cryotherapy as above TAC and hydroxyzine to use prn to itching spots and itching SKs Add Advair HFA 115/21 1 p BID 10/05/2013 Appointment: Belia Reid WPtel: [address] [place], [place] [id number] 10/01 pt called and confirmed ACUTE ILLNESS Patient Education: Patient Medication Summary Completed 10/05/2013 Appointment: Belia Reid WPtel: [address] [place], [place] [phone] will pay copay and part of past balance FOLLOW U P 08/04/2013 Patient Education: Patient Medication Summary Completed 08/04/2013 Appointment: Belia Reid WPtel: [address] [place], [place] [phone] [place] INJECTION 07/13/2013 Patient Education: Patient Medication Summary Completed 07/13/2013 Appointment: Huong Osborne WPtel: [address] [place], [place] [phone] ACUTE ILLNESS 07/03/2013 Patient Education: Patient Medication Summary Completed 07/03/2013 Visit Plan: Cipro and culture urine 05/27/2013 Appointment: Huong Osborne WPtel: [address] [place], [place] [id number] [place] 05/26 confirmed appt and notified that balance 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 is due at appt time FOLLOW UP 05/27/2013 Patient Education: Patient Medication Summary Completed 05/27/2013 Appointment: Belia Reid WPtel: [address] [place], [place] [id number] [place] UA 05/25/2013 Patient Education: Patient Medication Summary Completed 05/25/2013 Appointment: Belia Reid WPtel: [address] [place], [place] [phone] [place] INJECTION 05/04/2013 Patient Education: Patient Medication Summary Completed 05/04/2013 Appointment: Belia Reidtel: [address] [place], [place] [phone] [place] INJECTION 04/17/2013 Patient Education: Patient Medication Summary Completed 04/17/2013 Appointment: Belia Reid WPtel: [address] [place] [phone] [place] INJECTION 04/15/2013 Appointment: Belia Reid WPtel: [address] [place], [place] [phone] 04/02 vm FOLLOW UP 04/06/2013 Patient Education: Patient Medication Summary Completed 04/06/2013 Visit Plan: Obtain lab results including UA from [facility] 11/10/2012 Appointment: Belia Reidtel: [address] [place], [place] [phone] ER Follow UP 11/10/2012 Patient Education: Patient Medication Summary Completed 11/10/2012 Appointment: Belia Reidtel: [address] [place], [place] [phone] 10/30/12 patient canceled appt due to fin ances. Offered to work something out, patient declined-LB FOLLOW UP 11/05/2012 Visit Plan: Continue Bystolic at current dose Pt has fwup with Neurology on September 16 09/02/2012 Appointment: Belia Reid WPtel: [address] [place], [place] [phone] FOLLOW UP 09/02/2012 Patient Education: Patient Medication Summary Completed 09/02/2012 Visit Plan: Continue bystolic at 5mg chris ly Sees Neurology tomorrow Use oxygen at bedtime 08/04/2012 Appointment: Belia Reid WPtel: [address] [place] [address] FOLLOW UP 08/04/2012 Patient Education: Patient Medication Summary Completed 08/04/2012 Appointment: Belia Reid WPtel: [address] [place] [address] Hospital fwup for 07/21/12. merged appointments FOLLOW UP 07/24/2012 Visit Plan: Start Bystolic 5mg daily for tachycardia Fwup with neurology for further workup Overnight O2 sat 07/21/2012 Appointment: Belia Reid WPtel: [address] [place] [address] Hospital Follow Up 07/21/2012 Patient Education: Patient Medication Summary Completed 07/21/2012 Visit Plan: SVN with Albuterol QID Add A velox 400mg daily Notify if worsens or persists 07/02/2012 Appointment: Belia Reid WPtel: [address] [place] [address] ACUTE ILLNESS 07/02/2012 Patient Education: Patient Medication Summary Completed 07/02/2012 Appointment: Belia Reid WPtel: [address] [place], [place] [phone] INJECTION 06/25/2012 Patient Education: Patient Medication Summary Completed 06/25/2012 Appointment: Belia Reid WPtel: [address] [place], [place] [phone] FOLLOW UP 06/24/2012 Patient Education: Patient Medication Summary Completed 06/24/2012 Appointment: [phone] [facility] 05/19 left message FOLLOW UP 05/20/2012 Patient [...] TID 05/08/2012 Appointment: Belia Reid [facility]Ptel[facility] [phone] [facility] ACUTE ILLNESS 05/08/2012 Patient Education: Patient Medication Summary Completed 05/08/2012 Visit Plan: Continue current meds Contin ue lower dose on pain meds and Diazepam Still waiting on paperwork for botox for Migraines Will restart Neurontin at 600mg po q HS Pt going to stop Depakote due to can't afford 04/22/2012 Appointment: Belia Reid WPtel: [address] [place], [place] [phone] 04/21 Hospital Follow Up 04/22/2012 Patient Education: Patient Medication Summary Completed 04/22/2012 Visit Plan: Injection to shoulder as abo ve Continue current meds Has appointment with neurology on HAs in 02/13/2012 Appointment: Belia Reid WPtel: [address] [place], [place] [id number] Pt does not have $10 copay at [facility] t time - will bring it in next week. Kianna iqbal'ed this. - [place] FOLLOW UP 02/13/2012 Patient Education: Patient Medication Summary Completed 02/13/2012 Visit Plan: Proceed with headache specia list Change nexium to Protonix Phenergan to use prn Sumatriptan to use prn Pt still on Inderal 01/28/2012 Appointment: Belia Reid WPtel: [facility] [facility] Follow UP 01/28/2012 Patient Education: Patient [...] sleep 12/26/2011 Appointment: Belia Reid WPtel: [address] [place], [place] [phone] 12/24- appt. confirmed FOLLOW UP 2 Patient Education: Patient Medication Summary Completed 12/26/2011 Appointment: Belia Reid WPtel: [address] [place], [place] [phone] [place] FOLLOW UP 11/14/2011 Patient Education: Patient Medication Summary Completed 11/14/2011 Appointment: Belia Reid WPtel: [address] [place], [place] [phone] FOLLOW UP 09/12/2011 Patient Education: Patient Medication Summary Completed 09/12/2011 Visit Plan: Supportive care Decrease Liseth catalino to 50mg q HS Decrease AM dose of Valium to 5mg q HS Use Endocet sparingly 08/15/2011 Appointment: Belia Reid WPtel: [address] [place], [place] [phone] ER Follow UP 08/15/2011 Patient Education: Patient Medication Summary Completed 08/15/2011 Appointment: Belia Reid WPtel: [address] [place], [place] [phone] [place] Spoke directly to patient yesterday and confirmed the appoin tment. cn ACUTE ILLNESS 08/09/2011 Patient Education: Patient Medication Summary Completed 08/09/2011 Appointment: Belia Reid WPtel: [address] [place], [place] [phone] Hospital Follow Up 07/03/2011 Patient Education: Patient Medication Summary Completed 07/03/2011 Appointment: Belia Reid WPtel: [address] [place], [place] [phone] FOLLOW UP 06/04/2011 Patient Education: Patient Medication Summary Completed 06/04/2011 Visit Plan: Pt. wants "allergy shot" but in fact wants steroid shot. Will take a break from "generic Zyrtec they are getting from [place]" and try Singulair for 2 weeks. 05/03/2011 Appointment: Iraida Jones WPtel: [address] [place], [place] [id number] ACUTE ILLNESS 05/03/2011 Patient Education: Patient Medication Summary Completed 05/03/2011 Visit Plan: Neurontin 400mg q HS for 1we ek then 800mg q HS Decrease requip to 1mg q HS for 2wks then stop Fwup 2mos 04/05/2011 Appointment: Belia Reid WPtel: [address] [place], [place] [phone] FOLLOW UP 04/05/2011 Patient Education: Patient Medication Summary Completed 04/05/2011 Visit Plan: Trial of neurontin in 2wks C ontinue current meds for stomach Pt has procedure with Dr. Ortiz next week for stone removal 03/08/2011 Appointment: Belia Reid WPtel: [address] [place], [place] [phone] Hospital Follow Up 03/08/2011 Patient Education: Patient Medication Summary Completed 03/08/2011 Appointment: Belia Reid WPtel: [address] [place], [place] [phone] FOLLOW UP 02/19/2011 Visit Plan: reports increased [...] Flagyl 01/24/2011 Appointment: Iraida Jones WPtel: [address] [place] [address] ACUTE ILLNESS 01/24/2011 Patient Education: Patient Medication Summary Completed 01/24/2011 Appointment: Belia Reid WPtel: [address] [place] [address] [place] FOLLOW UP 01/02/2011 Patient Education: Patient Medication Summary Completed 01/02/2011 Appointment: Belia Reid WPtel: [address] [place] [address] FOLLOW UP 12/12/2010 Appointment: Belia Reid WPtel: [address] [place] [address] ACUTE ILLNESS 12/07/2010 Patient Education: Patient Medication Summary Completed 12/07/2010 Visit Plan: Increase Buspar to 10mg po B ID 11/16/2010 Appointment: Belia Reid WPtel: [address] [place] [address] FOLLOW UP 11/16/2010 Patient Education: Patient Medication Summary Completed 11/16/2010 Appointment: Iraida Jones WPtel: [address] [place] [address] ER Follow UP 11/02/2010 Patient Education: Patient Medication Summary Completed 11/02/2010 Visit Plan: Depo-Medrol/Kenalog given fo r allergies Add BuSpar for anxiety Oxycodone one p.o. q.i.d. for number 120 refilled 10/18/2010 Appointment: Belia Reid WPtel: [address] [place] [address] [place] FOLLOW UP 10/18/2010 Patient Education: Patient Medication Summary Completed 10/18/2010 Visit Plan: Continue current meds Discus sed epidurals for back vs PT--will proceed with epidurals to thoracolumbar region to see if helps with pain 09/19/2010 Appointment: Belia Reid WPtel: [address] [place], [place] [phone] FOLLOW UP 09/19/2010 Patient Education: Patient Medication Summary Completed 09/19/2010 Visit Plan: DC MS contin Check CT scan t horacic spine Fwup pending above results 09/06/2010 Appointment: Belia Reid WPtel: [address] [place] [phone] FOLLOW UP 09/06/2010 Patient Education: Patient Medication Summary Completed 09/06/2010 Visit Plan: Continue current meds Restar t MS contin 15mg po BID and use oxycodone prn Use daily senokot-s 2 po BID 08/10/2010 Appointment: Belia Reid WPtel: [address] [place], [place] [phone] FOLLOW UP 08/10/2010 Patient Education: Patient Medication Summary Completed 08/10/2010 Visit Plan: Depomedrol/Kenalog given Pt sees ENT later this month Cont current meds Mammo scheduled 05/11/2010 Appointment: Belia Reid WPtel: [address] [place] [address] FOLLOW UP 05/11/2010 Patient Education: Patient Medication Summary Completed 05/11/2010 Appointment: Belia Reid WPtel: [address] [place], [place] [phone] [facility] 05/04/2010 Patient Education: Patient Medication Summary Completed 05/04/2010 Visit Plan: Pt sent to lab for UA 04/28/2010 Appointment: Belia Reid WPtel: [address] [place] [phone] [facility] 04/28/2010 Patient Education: Patient Medication Summary Completed 04/28/2010 Visit Plan: Check CT angiogram of chest Restart Advair Use proair prn Cont current meds Fwup with Card as schedulec 04/06/2010 Appointment: Belia Reid WPtel: [address] [place], [place] [phone] [place] [address] Follow Up 04/06/2010 Patient Education: Patient Medication Summary Completed 04/06/2010 Visit Plan: Paperwork filled out for pow erchair Depomedrol/kenalog given Pt sees ENT in 2wks to assess nasal obstruction problems 02/09/2010 Appointment: Belia Reidtel: [address] [place], [place] [id number] EST[facility] PATIENT 02/09/2010 Patient Education: Patient Medication Summary Completed 02/09/2010 Visit Plan: Change Elavil to Trazadone 1 50mg q HS Diflucan and nystatin for tinea cruris 01/05/2010 Appointment: Belia Reid WPtel: [address] [place] [address] FOLLOW UP 01/05/2010 Patient Education: Patient Medication Summary Completed 01/05/2010 Appointment: Belia Reid WPtel: [address] [place] [address] FOLLOW UP 12/07/2009 Patient Education: Patient Medication Summary Completed 12/07/2009 Appointment: Belia Reid WPtel: [address] [place] [address] FOLLOW UP 11/22/2009 Visit Plan: Cont current meds and await MRI results from Dr. Meadows's office and his final recommendations Will need to follow-up at later date on deviated septum 11/08/2009 Appointment: Belia Reid WPtel: [address] [place], [place] [phone] FOLLOW UP 11/08/2009 Patient Education: Patient Medication Summary Completed 11/08/2009 Visit Plan: Cont PT/OT See Neurosurgery Cont Tortoise shell brace 10/24/2009 Appointment: Belia Reid WPtel: [address] [place], [place] [phone] FOLLOW UP 10/24/2009 Patient Education: Patient Medication Summary Completed 10/24/2009 Appointment: Belia Reid WPtel: [address] [facility] Hospital Follow Up 10/17/2009 Appointment: Belia Reid WPtel: [address] [place], [place] [phone] ACUTE ILLNESS 07/25/2009 Patient Education: Patient Medication Summary Completed 07/25/2009 Appointment: Belia Reid WPtel: [address] [place], [place] [phone] FOLLOW UP 05/26/2009 Patient Education: Patient Medication Summary Completed 05/26/2009 Referral: Chino Balderas WPtel: [facility] [place] Referral Initiated Referral: Merry Vale WPtel: [facility] [id number] Vale will review referral and book appointment Completed Referral: Francisco Javier Yoder WPtel: [address] [id number] [place] Patient needs EGD insurance will not inc rease a medication unless this procedure results show a need Completed Referral: Francisco Javier Yoder WPtel: [address] [id number] [place] Referral Historical Reference Referral: Francisco Javier Yoder WPtel: [address] [id number] [place] Referral Initiated Instructions Comment . 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 Long discussion [...] from "generic Zyrtec they are getting from [facility]" and try Singulair for 2 weeks. . [...]
--- OUTSIDE RECORDS SUMMARY | 2019-08-27 08:01 | XMS REPORT | CCD ---
Author Author Diana Reid D.O. Organization [facility] Address [address] [place] [address] Phone Care Team Providers Care Hob Machine Operator Name Role Phone [facility] D.O[facility] PP Unavailable CCM Unavailable Summary Purpose Interface Exchange Insurance Providers Payer name Policy type / Coverage type Covered alliance party ID Effective Begin Date Effective End Date [employer] MEDICARE Medicare Part B [id number] 2019 Unknown Family History Family History data not found Social History Social History Element Codes Description Effective Dates Tobacco history SNOMED CT: 032539054 Nonsmoker 09/13/2010 Allergies, Adverse Reactions, Alerts Substance Reaction Codes Entered Date Inactivated Date Status Eggs reaction 20459981 09/15/2015 No Inactive Date Active _ Unknown 01/07/2019 No Inactive Date Active PENICILLINS Unknown 01/07/2019 No Inactive Date Active SULFA (SULFONAMIDES) rash Unknown 11/02/2010 No Inactive Mike e Active Problems Condition Codes Effective Dates Condition Status Constipation ICD-9: 564.00 ICD-10: K59.00 08/04/2019 Active [...] Fill Instructions Ativan 0.5 mg tablet RxNorm: 299652 1 Tablet(s) Oral th ree times a day for anxiety/shortness of air/stridor 07/29/2019 08/27/2019 Active Singulair 10 mg tablet RxNorm: 706329 1 Tablet(s) Oral QPM 07/29/19 20 01/25/2020 Active diltiazem CD 240 mg capsule,extended release 24 hr RxNorm: 8 16464 1 Capsule(s) Oral QD 07/15/2019 01/10/2020 Active metoprolol tartrate 50 mg tablet RxNorm: 246384 1 Table t(s) Oral two times a day 07/06/2019 No Stop Date Active Novolin N NPH U-100 Insulin isophane 100 unit/mL subcu taneous susp RxNorm: 253332 25 Unit(s) Subcutaneous two times a day 07/06/2019 07/06/2019 I nactive Colestid 1 gram tablet RxNorm: 9852196 1 Tablet(s) Oral two times a day for diarrhea 07/06/2019 09/04/2019 Active pramipexole 1 mg tablet RxNorm: 609062 1 Tablet(s) Oral QPM FOR RESTLESS LEGS (REPLACES REQUIP) 06/25/2019 06/19/2020 Active hydroxyzine HCl 25 mg tablet RxNorm: 099825 1 Tablet(s) Oral QPM for itching/aniety 06/25/2019 09/23/2019 Active Ativan 0.5 mg tablet RxNorm: 549835 1 Tablet(s) Oral th ree times a day for anxiety/shortness of air/stridor 06/25/2019 07/25/2019 Inactive Levaquin 500 mg tablet RxNorm: 290728 1 Tablet(s) Oral QD 06/16/2019 06/23/2019 Inactive Flagyl 500 mg tablet RxNorm: 784218 1 Tablet(s) Oral three time s a day 06/16/2019 06/23/2019 Inactive Vancocin 125 mg capsule RxNorm: 857680 1 Capsule(s) Oral four t imes a day 06/08/2019 06/18/2019 Inactive omeprazole 40 mg capsule,delayed release RxNorm: 002081 1 Capsule(s) Oral two times a day 05/26/2019 11/21/2019 Active Flagyl 500 mg tablet RxNorm: 854226 1 Tablet(s) Oral three time s a day 05/26/2019 06/05/2019 Inactive diltiazem CD 240 mg capsule,extended release 24 hr RxNorm: 8 51808 1 Capsule(s) Oral QD 05/26/2019 07/14/2019 Inactive Cipro 250 mg tablet RxNorm: 636444 1 Tablet(s) Oral two times a day 05/26/2019 06/02/2019 Inactive hydroxyzine HCl 25 mg tablet RxNorm: 126902 1 Tablet(s) Oral QPM for itching/aniety 05/21/2019 06/24/2019 Inactive metoprolol tartrate 25 mg tablet RxNorm: 631363 1 Table t(s) Oral two times a day 05/21/2019 07/05/2019 Inactive hydroxyzine HCl 25 mg tablet RxNorm: 619674 1 Tablet(s) Oral QPM for itching/aniety 05/13/2019 05/20/2019 Inactive Singulair 10 mg tablet RxNorm: 497376 1 Tablet(s) Oral QPM 05/06/1905/12/2019 Inactive gabapentin 600 mg tablet RxNorm: 692599 1 Tablet(s) Oral QD 020 06/05/2019 Inactive Valium 5 mg tablet RxNorm: 367551 1 Tablet(s) Oral QPM for stri joao/muscle spasm 04/29/2019 06/24/2019 Inactive baclofen 10 mg tablet RxNorm: 486592 1 Tablet(s) Oral QPM for s pasm/neck pain 04/24/2019 05/23/2019 Inactive baclofen 10 mg tablet RxNorm: 848230 1 Tablet(s) Oral QPM for s pasm/neck pain 04/24/2019 04/23/2019 Inactive Novolin N NPH U-100 Insulin isophane 100 unit/mL subcu taneous susp RxNorm: 800835 23 Unit(s) Subcutaneous two times a day 04/20/2019 07/05/2019 I nactive cyclobenzaprine 5 mg tablet RxNorm: 804744 1 Tablet(s) Oral three times a day as needed 04/16/2019 04/23/2019 Inactive hydroxyzine HCl 25 mg tablet RxNorm: 642754 1 Tablet(s) Oral three times a day for itching/aniety 04/08/2019 05/12/2019 Inactive gabapentin 600 mg tablet RxNorm: 175532 1 Tablet(s) Oral two ti mes a day 04/08/2019 05/05/2019 Inactive gabapentin 600 mg tablet RxNorm: 148910 1 Tablet(s) Oral two ti mes a day 04/08/2019 04/07/2019 Inactive Novolin N NPH U-100 Insulin isophane 100 unit/mL subcu taneous susp RxNorm: 886637 10 Unit(s) Subcutaneous two times a day 03/03/2019 04/19/2019 I nactive gabapentin 300 mg capsule RxNorm: 455603 1 Capsule(s) O ral every night at bedtime for neuropathy 02/26/2019 04/07/2019 Inactive gabapentin 300 mg capsule RxNorm: 829422 1 Capsule(s) O ral every night at bedtime for neuropathy 02/20/2019 02/25/2019 Inactive buspirone 5 mg tablet RxNorm: 674972 TAKE 1 TABLET THREE TIMES MILDRED Y 02/12/2019 05/12/2019 Inactive pramipexole 1 mg tablet RxNorm: 027869 1 Tablet(s) Oral QPM FOR RESTLESS LEGS (REPLACES REQUIP) 02/12/2019 06/24/2019 Inactive Lexapro 10 mg tablet RxNorm: 040818 TAKE 1 TABLET EVERY DAY FOR MOO D 01/31/2019 No Stop Date Active Ativan 0.5 mg tablet RxNorm: 581533 TAKE 1 TABLET BY MO UT THREE TIMES DAILY NEEDED FOR ANXIETY 01/26/2019 04/28/2019 Inactive Ativan 0.5 mg tablet RxNorm: 617705 TAKE 1 TABLET BY MO UT THREE TIMES DAILY NEEDED FOR ANXIETY 01/05/2019 01/05/2019 Inactive Levaquin 500 mg tablet RxNorm: 511187 1 Tablet(s) Oral QD 12/25/2018 12/24/2018 Inactive Levaquin 500 mg tablet RxNorm: 043809 1 Tablet(s) Oral QD 12/25/2018 01/04/2019 Inactive baclofen 10 mg tablet RxNorm: 960395 1 Tablet(s) Oral three maico es a day 11/20/2018 01/19/2019 Inactive Ativan 0.5 mg tablet RxNorm: 765076 TAKE 1 TABLET BY MO UT THREE TIMES DAILY NEEDED FOR ANXIETY 11/20/2018 01/04/2019 Inactive gabapentin 300 mg capsule RxNorm: 147538 1 Capsule(s) O ral every night at bedtime for neuropathy 11/20/2018 12/20/2018 Inactive Lexapro 10 mg tablet RxNorm: 050970 1 Tablet(s) PO QD for mood 07/201801/30/2019 Inactive Zithromax Z-Lj 250 mg tablet RxNorm: 434754 Tablet(s) PO take as directed 11/04/2018 11/19/2018 Inactive Insulin Syringe 1 mL 29 gauge x 1/2" RxNorm: 2 s yringes daily with insulin Dx: E11.65 10/08/2018 No Stop Date Active gabapentin 300 mg capsule RxNorm: 192665 1 Capsule(s) PO QHS fo r neuropathy 09/18/2018 10/17/2018 Inactive cyclobenzaprine 5 mg tablet RxNorm: 321056 1 Tablet(s) PO TID a s needed 09/09/2018 09/08/2018 Inactive cyclobenzaprine 5 mg tablet RxNorm: 184209 1 Tablet(s) PO TID a s needed 09/09/2018 10/08/2018 Inactive prednisone 20 mg tablet RxNorm: 975579 1 Tablet(s) PO QD 09/08/2018 0 09/12/2018 Inactive Lantus Solostar U-100 Insulin 100 unit/mL (3 mL) subcu taneous pen RxNorm: 451576 55 Unit(s) SQ QAM 08/28/2018 11/03/2018 Inactive hydroxyzine HCl 25 mg tablet RxNorm: 728840 1 Tablet(s) PO QHS for itching 08/20/2018 05/12/2019 Inactive Lexapro 10 mg tablet RxNorm: 223944 1 Tablet(s) PO QD for mood 08/0210/18/2018 Inactive sumatriptan 100 mg tablet RxNorm: 459272 1 Tablet(s) PO at headache onset. May repeat 1 in two hours if headache remains. Max of 2 per 24 hours 04/02/2018 05/20/2018 Inactive Diflucan 150 mg tablet RxNorm: 335103 1 Tablet(s) PO QD 03/18/2018 Inactive Diflucan 150 mg tablet RxNorm: 024005 1 Tablet(s) PO QD 03/18/2018 Inactive Flagyl 500 mg tablet RxNorm: 398026 1 Tablet(s) PO TID 03/17/2018 Inactive Levaquin 500 mg tablet RxNorm: 150862 1 Tablet(s) PO QD 03/17/2018 Inactive Levaquin 500 mg tablet RxNorm: 189563 1 Tablet(s) PO QD 03/17/2018 Inactive Flagyl 500 mg tablet RxNorm: 909531 1 Tablet(s) PO TID 03/17/2018 Inactive ketoconazole 200 mg tablet RxNorm: 868218 1 Tablet(s) PO QD 019 03/19/2018 Inactive Celebrex 200 mg capsule RxNorm: 304132 1 Capsule(s) PO BID 02/06/20 18 05/20/2018 Inactive tramadol 50 mg tablet RxNorm: 045660 1 Tablet(s) PO TID as needed 1 04/08/2017 05/20/2018 Inactive gabapentin 300 mg capsule RxNorm: 293884 1 Capsule(s) PO BID 201705/20/2018 Inactive Diflucan 150 mg tablet RxNorm: 271342 1 Tablet(s) PO QD 01/20/2018 Inactive pramipexole 1 mg tablet RxNorm: 700410 1 Tablet(s) PO Q PM FOR RESTLESS LEGS (REPLACES REQUIP) 01/08/2018 02/11/2019 Inactive cyclobenzaprine 10 mg tablet RxNorm: 685633 1 Tablet(s) PO TID as needed for muscle spasm 12/17/2017 05/20/2018 Inactive pramipexole 1 mg tablet RxNorm: 193627 TAKE 1 TABLET BY MOUTH ONCE DAILY IN THE EVENING FOR RESTLESS LEGS (REPLACES REQUIP) 12/04/2017 01/05/2018 Inac tive Amaryl 4 mg tablet RxNorm: 580557 1 Tablet(s) PO BID replaces 2mg 0 11/05/2017 12/16/2017 Inactive Singulair 10 mg tablet RxNorm: 783848 1 Tablet(s) PO QHS for al lergies/lungs 10/30/2017 12/16/2017 Inactive Diflucan 100 mg tablet RxNorm: 604423 1 Tablet(s) PO QD 10/23/2017 Inactive Ativan 0.5 mg tablet RxNorm: 570564 TAKE 1 TABLET BY MOUTH THRE E TIMES DAILY 08/30/2017 11/20/2018 Inactive buspirone 5 mg tablet RxNorm: 350436 1 Tablet(s) PO TID 07/11/2017 Inactive propranolol 60 mg tablet RxNorm: 782318 1 Tablet(s) PO BID repl aces 40mg dose 06/26/2017 12/16/2017 Inactive Amaryl 4 mg tablet RxNorm: 373508 1 Tablet(s) PO BID replaces 2mg 0 06/12/2017 11/05/2017 Inactive omeprazole 40 mg capsule,delayed release RxNorm: 275452 1 Capsule(s) PO BID TAKE ONE CAPSULE BY MOUTH TWICE DAILY 05/30/2017 11/25/2017 Inactive pramipexole 1 mg tablet RxNorm: 707957 1 Tablet(s) PO Q PM for restless legs--replaces requip 05/30/2017 11/25/2017 Inactive amitriptyline 50 mg tablet RxNorm: 195441 1 Tablet(s) PO QHS 201709/16/2017 Inactive Diflucan 100 mg tablet RxNorm: 483540 1 Tablet(s) PO BID 05/07/2017 0 05/20/2017 Inactive nystatin (bulk) 100 million unit powder RxNorm: Application TO P BID 05/07/2017 05/20/2018 Inactive cholestyramine (with sugar) 4 gram oral powder RxNorm: 925298 1 Unit Dose PO QD 05/07/2017 01/20/2018 Inactive Ativan 0.5 mg tablet RxNorm: 825221 TAKE ONE TABLET BY MOUTH TH REE TIMES DAILY 05/01/2017 09/02/2017 Inactive Trulicity 1.5 mg/0.5 mL subcutaneous pen injector RxNorm: 15 55479 1 Unit Dose SQ WEEKLY 02/22/2017 03/23/2017 Inactive doxycycline hyclate 100 mg capsule RxNorm: 2252547 1 Capsule(s) PO BID 01/23/2017 02/05/2017 Inactive Amaryl 4 mg tablet RxNorm: 049915 1 Tablet(s) PO BID replaces 2mg 1 03/25/2016 05/22/2017 Inactive magnesium oxide 400 mg capsule RxNorm: 626832 1 Capsule(s) PO QD 07/18/2017 Inactive Ativan 0.5 mg tablet RxNorm: 619866 TAKE ONE TABLET BY MOUTH TH REE TIMES DAILY 01/17/2017 05/01/2017 Inactive Amaryl 2 mg tablet RxNorm: 631559 1 Tablet(s) PO BID 12/27/201601/22 Inactive Amaryl 2 mg tablet RxNorm: 017192 1 Tablet(s) PO BID 12/26/201612/26 Inactive Ativan 0.5 mg tablet RxNorm: 802445 TAKE ONE TABLET BY MOUTH TH REE TIMES DAILY 12/05/2016 01/18/2017 Inactive pramipexole 1 mg tablet RxNorm: 643908 1 Tablet(s) PO Q PM for restless legs--replaces requip 11/26/2016 05/30/2017 Inactive Mobic 15 mg tablet RxNorm: 611519 1 Tablet(s) PO QD 10/08/20162016 Inactive cyclobenzaprine 5 mg tablet RxNorm: 878001 1/2- 1 Tablet(s) PO TID 10/08/2016 10/17/2016 Inactive Ativan 0.5 mg tablet RxNorm: 396335 1 Tablet(s) PO TID 09/20/201607/2016 Inactive amitriptyline 50 mg tablet RxNorm: 214231 1 Tablet(s) PO QHS 201605/30/2017 Inactive propranolol 60 mg tablet RxNorm: 195950 1 Tablet(s) PO BID repl aces 40mg dose 09/19/2016 06/26/2017 Inactive Ativan 0.5 mg tablet RxNorm: 459598 1 Tablet(s) PO TID 08/20/2016 Inactive omeprazole 40 mg capsule,delayed release RxNorm: 935846 1 Capsule(s) PO BID TAKE ONE CAPSULE BY MOUTH TWICE DAILY 08/20/2016 05/30/2017 Inactive amitriptyline 50 mg tablet RxNorm: 254296 1 Tablet(s) PO QHS 201609/18/2016 Inactive pramipexole 1 mg tablet RxNorm: 693997 1 Tablet(s) PO Q PM for restless legs--replaces requip 07/23/2016 11/25/2016 Inactive Amaryl 2 mg tablet RxNorm: 840879 1 Tablet(s) PO BID 07/23/201612/27 Inactive propranolol 40 mg tablet RxNorm: 645329 1 Tablet(s) PO BID 07/13/19 17 09/18/2016 Inactive Ativan 0.5 mg tablet RxNorm: 047351 1 Tablet(s) PO QID 06/19/2016 Inactive Amaryl 2 mg tablet RxNorm: 826712 1 Tablet(s) PO BID 06/19/201607/22 Inactive Ativan 0.5 mg tablet RxNorm: 204872 1 Tablet(s) PO QID 06/19/2016 Inactive buspirone 5 mg tablet RxNorm: 381988 1 Tablet(s) PO TID 06/19/2016 Inactive Ativan 0.5 mg tablet RxNorm: 781134 1 Tablet(s) PO BID 05/24/2016 Inactive buspirone 5 mg tablet RxNorm: 355078 1 Tablet(s) PO TID 05/23/2016 Inactive Macrobid 100 mg capsule RxNorm: 166621 1 Capsule(s) PO QOD 05/03/19 17 10/07/2016 Inactive pramipexole 1 mg tablet RxNorm: 807797 Tablet(s) 1 Tabl et(s) PO QPM for restless legs--replaces requip 04/26/2016 06/24/2016 Inactive propranolol 40 mg tablet RxNorm: 403030 TAKE ONE TABLET BY MOUT H TWICE DAILY 04/26/2016 06/24/2016 Inactive Detrol LA 4 mg capsule,extended release RxNorm: 666511 1 Capsul e(s) PO QHS 04/03/2016 05/02/2016 Inactive prednisone 20 mg tablet RxNorm: 828300 1 Tablet(s) PO QD 02/29/2016 0 03/04/2016 Inactive Actos 30 mg tablet RxNorm: 727103 TAKE ONE TABLET BY MOUTH ONCE DAILY 02/27/2016 12/19/2016 Inactive clindamycin 300 mg capsule RxNorm: 264773 1 Capsule(s) PO TID 02/0102/08/2016 Inactive Flagyl 500 mg tablet RxNorm: 839366 1 Tablet(s) PO BID 02/02/201609/2015 Inactive omeprazole 40 mg capsule,delayed release RxNorm: 851844 TAKE ONE CAPSULE BY MOUTH TWICE DAILY 01/15/2016 07/12/2016 Inactive gabapentin 300 mg capsule RxNorm: 827205 1 Capsule(s) PO QAM an d 2 po q HS 01/05/2016 06/18/2016 Inactive gabapentin 300 mg capsule RxNorm: 726016 1 Capsule(s) P O BID 1 Capsule(s) PO QHS 12/05/2015 01/04/2016 Inactive cyclobenzaprine 10 mg tablet RxNorm: 582567 1 Tablet(s) PO TID for spasm as needed for muscle spasm 12/05/2015 06/18/2016 Inactive ciprofloxacin 250 mg tablet RxNorm: 276614 1 Tablet(s) PO BID 12/0412/14/2015 Inactive pramipexole 1 mg tablet RxNorm: 313449 Tablet(s) 1 Tabl et(s) PO QPM for restless legs--replaces requip 11/07/2015 11/26/2016 Inactive Januvia 100 mg tablet RxNorm: 155238 1 Tablet(s) PO QD 10/26/201504/2015 Inactive propranolol 40 mg tablet RxNorm: 268871 TAKE ONE TABLET BY MOUT H TWICE DAILY 10/25/2015 04/21/2016 Inactive gabapentin 300 mg capsule RxNorm: 344467 1 Capsule(s) PO QHS 201512/04/2015 Inactive Cipro 500 mg tablet RxNorm: 202051 1 Tablet(s) PO BID 10/05/2015 0811/2015 Inactive pramipexole 1 mg tablet RxNorm: 979376 Tablet(s) 1 Tabl et(s) PO QPM for restless legs--replaces requip 10/04/2015 11/02/2015 Inactive propranolol 40 mg tablet RxNorm: 683166 TAKE ONE TABLET BY MOUT H TWICE DAILY 09/26/2015 10/24/2015 Inactive Amaryl 2 mg tablet RxNorm: 069481 1 Tablet(s) PO QD 09/15/20152016 Inactive gabapentin 300 mg capsule RxNorm: 182025 1 Capsule(s) PO QHS 201510/14/2015 Inactive buspirone 5 mg tablet RxNorm: 658213 1 Tablet(s) PO TID 09/15/2015 Inactive pramipexole 1 mg tablet RxNorm: 025971 Tablet(s) 1 Tabl et(s) PO QPM for restless legs--replaces requip 09/08/2015 10/03/2015 Inactive pramipexole 1 mg tablet RxNorm: 678456 1 Tablet(s) PO Q PM for restless legs--replaces requip 08/08/2015 09/08/2015 Inactive Amaryl 2 mg tablet RxNorm: 666734 1 Tablet(s) PO QD 07/07/20152015 Inactive pramipexole 1 mg tablet RxNorm: 271528 1 Tablet(s) PO Q PM for restless legs--replaces requip 07/05/2015 08/03/2015 Inactive ropinirole 2 mg tablet RxNorm: 205859 TAKE ONE TABLET BY MOUTH TWICE DAILY 05/09/2015 09/14/2015 Inactive Diflucan 100 mg tablet RxNorm: 620167 1 Tablet(s) PO QD 03/30/2015 Inactive propranolol 40 mg tablet RxNorm: 403586 1 Tablet(s) PO BID 02/24/20 15 08/21/2015 Inactive [SAVINGS FOR UNINSURED PATIE NTS -- BIN:882948, PCN: ASPROD1, Group: AME08, ID# [id number], Process claim through [employer], for questions: . THIS IS NOT INSURANCE.] Flagyl 500 mg tablet RxNorm: 693653 1 Tablet(s) PO BID 02/03/201502/2015 Inactive Cipro 500 mg tablet RxNorm: 651998 1 Tablet(s) PO BID 02/03/201502/01 Inactive Carafate 1 gram tablet RxNorm: 773464 1 Tablet(s) PO QID make i nto slurry 02/03/2015 09/14/2015 Inactive ondansetron HCl 4 mg tablet RxNorm: 078393 1 Tablet(s) PO Q4H as needed for nausea 12/29/2014 01/04/2016 Inactive Diflucan 100 mg tablet RxNorm: 808842 1 Tablet(s) PO QD 12/29/2014 Inactive Keflex 500 mg capsule RxNorm: 462643 1 Capsule(s) PO TID 12/29/2014 1 03/09/2014 Inactive omeprazole 40 mg capsule,delayed release RxNorm: 363685 1 Capsu le(s) PO BID 12/27/2014 12/21/2015 Inactive [SAVINGS FOR UNINSUR ED PATIENTS -- BIN:525658, PCN: ASPROD1, Group: AME08, ID# [id number], Process claim through [employer], for questions: . THIS IS NOT INSURANCE.] ropinirole 2 mg tablet RxNorm: 874526 1 Tablet(s) PO BID 09/29/2014 0 03/27/2015 Inactive [SAVINGS FOR UNINSURED PATIENTS -- BIN:0 89333, PCN: ASPROD1, Group: AME08, ID# [id number], Process claim through [employer], for questions: . THIS IS NOT INSURANCE.] buspirone 5 mg tablet RxNorm: 492393 1 Tablet(s) PO TID 09/17/2014 Inactive ropinirole 2 mg tablet RxNorm: 361020 1 Tablet(s) PO BID 09/02/2014 0 09/28/2014 Inactive [SAVINGS FOR UNINSURED PATIENTS -- BIN:0 62638, PCN: ASPROD1, Group: AME08, ID# [id number], Process claim through [employer], for questions: . THIS IS NOT INSURANCE.] Zyrtec 10 mg tablet RxNorm: 0785412 1 Tablet(s) PO QD 09/02/201412/02 Inactive propranolol 40 mg tablet RxNorm: 720119 1 Tablet(s) PO BID 07/21/19 15 02/23/2015 Inactive [SAVINGS FOR UNINSURED PATIE NTS -- BIN:200271, PCN: ASPROD1, Group: AME08, ID# [id number], Process claim through [employer], for questions: . THIS IS NOT INSURANCE.] ropinirole 2 mg tablet RxNorm: 896608 1 Tablet(s) PO QHS 05/14/2014 0 09/01/2014 Inactive [SAVINGS FOR UNINSURED PATIENTS -- BIN:0 27408, PCN: ASPROD1, Group: AME08, ID# [id number], Process claim through [employer], for questions: . THIS IS NOT INSURANCE.] cyclobenzaprine 10 mg tablet RxNorm: 956716 1 Tablet(s) PO QHS for spasm 04/06/2014 09/01/2014 Inactive ipratropium-albuterol 0.5 mg-3 mg(2.5 mg base)/3 mL ne bulization soln RxNorm: 8657576 1 Unit Dose INH Q4H 03/16/2014 No Stop Date Active [SAVINGS FOR UNINSURED PATIENTS -- BIN:387014, PCN: ASPROD1, Group: AME08, ID# [id number], Process claim through [employer], for questions: . THIS IS NOT INSURANCE.] prednisone 20 mg tablet RxNorm: 010817 1 Tablet(s) PO BID 03/09/2014 03/15/2014 Inactive [SAVINGS FOR UNINSURED PATIENTS -- BIN:0 58198, PCN: ASPROD1, Group: AME08, ID# [id number], Process claim through [employer], for questions: . THIS IS NOT INSURANCE.] ipratropium-albuterol 0.5 mg-3 mg(2.5 mg base)/3 mL ne bulization soln RxNorm: 7986046 1 Unit Dose INH Q4H 03/09/2014 03/15/2014 Inactive [SAVINGS FOR UNINSURED PATIENTS -- BIN:849494, PCN: ASPROD1, Group: AME08, ID# [id number], Process claim through [employer], for questions: . THIS IS NOT INSURANCE.] Levaquin 500 mg tablet RxNorm: 302507 1 Tablet(s) PO QD 03/09/2014 Inactive [SAVINGS FOR UNINSURED PATIENTS -- BIN:0 91171, PCN: ASPROD1, Group: AME08, ID# [id number], Process claim through [employer], for questions: . THIS IS NOT INSURANCE.] Carafate 1 gram tablet RxNorm: 907654 1 Tablet(s) PO AC & HS ma ke into slurry 02/09/2014 09/01/2014 Inactive [SAVINGS FOR UNINSUR ED PATIENTS -- BIN:407737, PCN: ASPROD1, Group: AME08, ID# [id number], Process claim through [employer], for questions: . THIS IS NOT INSURANCE.] Fioricet 50 mg-300 mg-40 mg capsule RxNorm: 2364289 1-2 Capsule(s) PO Q4H as needed for headache --max of 6 a day 02/09/2014 09/01/2014 Inactive [SAVINGS FOR UNINSURED PATIENTS -- BIN:301936, PCN: ASPROD1, Group: AME08, ID# [id number], Process claim through [employer], for questions: . THIS IS NOT INSURANCE.] propranolol 40 mg tablet RxNorm: 179139 1 Tablet(s) PO BID 12/08/19 14 06/04/2014 Inactive [SAVINGS FOR UNINSURED PATIE NTS -- BIN:578178, PCN: ASPROD1, Group: AME08, ID# [id number], Process claim through [employer], for questions: . THIS IS NOT INSURANCE.] buspirone 5 mg tablet RxNorm: 247395 1 Tablet(s) PO TID 12/02/2013 Inactive omeprazole 40 mg capsule,delayed release RxNorm: 606441 1 Capsu le(s) PO BID 11/25/2013 11/19/2014 Inactive [SAVINGS FOR UNINSUR ED PATIENTS -- BIN:210418, PCN: ASPROD1, Group: AME08, ID# [id number], Process claim through [employer], for questions: . THIS IS NOT INSURANCE.] ropinirole 2 mg tablet RxNorm: 538480 1 Tablet(s) PO QHS 11/10/2013 0 05/08/2014 Inactive [SAVINGS FOR UNINSURED PATIENTS -- BIN:0 32255, PCN: ASPROD1, Group: AME08, ID# [id number], Process claim through [employer], for questions: . THIS IS NOT INSURANCE.] Cipro 500 mg tablet RxNorm: 380451 1 Tablet(s) PO BID 10/21/201312/03 Inactive [SAVINGS FOR UNINSURED PATIENTS -- BIN:0 62670, PCN: ASPROD1, Group: AME08, ID# [id number], Process claim through [employer], for questions: . THIS IS NOT INSURANCE.] hydroxyzine HCl 25 mg tablet RxNorm: 454199 1 Tablet(s) PO Q4-6 H as needed 10/05/2013 01/04/2016 Inactive [SAVINGS FOR UNINSUR ED PATIENTS -- BIN:493796, PCN: ASPROD1, Group: AME08, ID# [id number], Process claim through [employer], for questions: . THIS IS NOT INSURANCE.] triamcinolone acetonide 0.1 % topical cream RxNorm: 8867916 Appl ication TOP BID 10/05/2013 09/01/2014 Inactive [SAVINGS FOR UNINSUR ED PATIENTS -- BIN:190045, PCN: ASPROD1, Group: AME08, ID# [id number], Process claim through [employer], for questions: . THIS IS NOT INSURANCE.] albuterol sulfate HFA 90 mcg/actuation aerosol inhaler RxNor m: 7649916 2 Puff(s) INH Q4H as needed for cough 10/01/2013 12/22/2013 Inactive [MAKSIM INGS FOR UNINSURED PATIENTS -- BIN:827218, PCN: ASPROD1, Group: AME08, ID# [id number], Process claim through [employer], for questions: . THIS IS NOT INSURANCE.] propranolol 40 mg tablet RxNorm: 173477 1 Tablet(s) PO BID 09/02/19 14 11/29/2013 Inactive [SAVINGS FOR UNINSURED PATIE NTS -- BIN:261017, PCN: ASPROD1, Group: AME08, ID# [id number], Process claim through [employer], for questions: . THIS IS NOT INSURANCE.] propranolol 40 mg tablet RxNorm: 398186 1 Tablet(s) PO BID 08/05/19 14 08/31/2013 Inactive [SAVINGS FOR UNINSURED PATIE NTS -- BIN:198963, PCN: ASPROD1, Group: AME08, ID# [id number], Process claim through [employer], for questions: . THIS IS NOT INSURANCE.] Toprol XL 50 mg tablet,extended release RxNorm: 004667 1 Tablet (s) PO QHS 07/23/2013 08/03/2013 Inactive Macrobid 100 mg capsule RxNorm: 671423 1 Capsule(s) PO BID 07/04/19 14 07/09/2013 Inactive Toprol XL 50 mg tablet,extended release RxNorm: 723398 1 Tablet (s) PO QHS 05/28/2013 06/26/2013 Inactive ciprofloxacin 500 mg tablet RxNorm: 225082 1 Tablet(s) PO BID 05/2706/02/2013 Inactive Bystolic 5 mg tablet RxNorm: 911677 1 Tablet(s) PO QD 05/27/201305/03 Inactive ropinirole 2 mg tablet RxNorm: 267437 1 Tablet(s) PO QHS 04/22/2013 0 11/09/2013 Inactive Cipro 250 mg tablet RxNorm: 984900 1 Tablet(s) PO BID 04/06/201311/2013 Inactive ropinirole 2 mg tablet RxNorm: 532306 1 Tablet(s) PO QHS 02/17/2013 0 04/21/2013 Inactive Amaryl 2 mg tablet RxNorm: 411996 1 Tablet(s) PO QAM 11/11/201211/10 Inactive Amaryl 2 mg tablet RxNorm: 084428 1 Tablet(s) PO QAM 11/11/201204/05 Inactive omeprazole 40 mg capsule,delayed release RxNorm: 678652 1 Capsu le(s) PO BID 08/14/2012 08/08/2013 Inactive Bystolic 5 mg tablet RxNorm: 292294 1 Tablet(s) PO QD 08/14/201205/03 Inactive propranolol 60 mg tablet RxNorm: 607746 Tablet(s) PO TAKE 1 TAB LET TWICE DAILY 08/01/2012 09/01/2012 Inactive Bystolic 5 mg tablet RxNorm: 111314 1 Tablet(s) PO QD 07/21/201207/02 Inactive Bystolic 5 mg tablet RxNorm: 312505 1 Tablet(s) PO QD 07/21/201207/03 Inactive Prilosec 40 mg capsule,delayed release RxNorm: 777846 1 Capsule (s) PO BID 06/24/2012 07/21/2012 Inactive buspirone 10 mg tablet RxNorm: 219357 1 Tablet(s) PO TID 05/08/2012 0 05/23/2016 Inactive Valium 10 mg tablet RxNorm: 662102 1 Tablet(s) PO BID 04/02/201207/03 Inactive Endocet 10 mg-325 mg tablet RxNorm: 6020246 1 Tablet(s) PO QID 03/0607/21/2012 Inactive as needed for severe pain Valium 10 mg tablet RxNorm: 974832 1 Tablet(s) PO BID 02/27/2012 No S top Date Active Endocet 10 mg-325 mg tablet RxNorm: 9479046 1 Tablet(s) PO QID 02/0203/27/2012 Inactive as needed for severe pain Endocet 10 mg-325 mg tablet RxNorm: 4461645 1 Tablet(s) PO QID 01/0302/26/2012 Inactive as needed for severe pain Valium 10 mg tablet RxNorm: 260493 1 Tablet(s) PO BID 01/29/2012 No S top Date Active Protonix 40 mg tablet,delayed release RxNorm: 037008 1 Tablet(s ) PO QD 01/28/2012 07/21/2012 Inactive metformin ER 500 mg tablet,extended release 24 hr RxNorm: 86 0977 1 Tablet(s) PO QD 12/26/2011 07/20/2012 Inactive Trazadone 150 mg Tablet RxNorm: 1 Tablet(s) PO QHS prn sleep 1 04/23/2012 Inactive Endocet 10 mg-325 mg tablet RxNorm: 7577032 1 Tablet(s) PO QID 12/0301/24/2012 Inactive as needed for severe pain Nexium 40 mg capsule,delayed release RxNorm: 674112 1 Capsule(s ) PO QD 12/26/2011 01/27/2012 Inactive Symbicort 160 mcg-4.5 mcg/actuation HFA Aerosol Inhaler RxNo rm: 2217974 2 Puff(s) INH BID 12/04/2011 07/21/2012 Inactive Endocet 10 mg-325 mg tablet RxNorm: 8694056 1 Tablet(s) PO QID 11/0312/25/2011 Inactive as needed for severe pain metformin ER 500 mg tablet,extended release 24 hr RxNorm: 86 0977 1 Tablet(s) PO QD 11/20/2011 12/19/2011 Inactive metformin ER 500 mg tablet,extended release 24 hr RxNorm: 86 0977 1 Tablet(s) PO QD 11/20/2011 11/19/2011 Inactive amitriptyline 100 mg tablet RxNorm: 453372 Tablet(s) PO QHS 1 a nd /2 tabs QHS 11/12/2011 11/13/2011 Inactive Valium 10 mg tablet RxNorm: 097369 1 Tablet(s) PO BID 11/09/2011 No S top Date Active Endocet 10 mg-325 mg tablet RxNorm: 3736429 1 Tablet(s) PO QID 10/0211/14/2011 Inactive as needed for severe pain Aricept 10 mg Tab RxNorm: 342679 1 Tablet(s) PO QD 10/05/2011 013 Inactive Valium 10 mg tablet RxNorm: 983882 1 Tablet(s) PO BID 10/05/2011 No S top Date Active Endocet 10 mg-325 mg Tab RxNorm: 0059255 1 Tablet(s) PO QID 012 10/09/2011 Inactive as needed for severe pain Aricept 10 mg Tab RxNorm: 438854 1 Tablet(s) PO QD 08/14/2011 012 Inactive Endocet 10 mg-325 mg Tab RxNorm: 4091509 1 Tablet(s) PO QID 012 08/31/2011 Inactive as needed for severe pain Valium 10 mg Tab RxNorm: 617318 1 Tablet(s) PO BID 08/02/2011 No Stop Date Active propranolol 60 mg tablet RxNorm: 711753 1 Tablet(s) PO BID 07/26/19 12 09/11/2011 Inactive amitriptyline 100 mg tablet RxNorm: 213587 Tablet(s) PO QHS 1 a nd 1/2 tabs QHS 06/20/2011 09/11/2011 Inactive buspirone 10 mg tablet RxNorm: 943785 1 Tablet(s) PO BID 06/18/2011 0 09/15/2011 Inactive propranolol 60 mg Tab RxNorm: 410411 1 Tablet(s) PO BID 06/18/2011 Inactive gabapentin 800 mg Tab RxNorm: 708763 1 Tablet(s) PO BID 06/18/2011 Inactive ropinirole 2 mg tablet RxNorm: 052896 1 Tablet(s) PO QHS 05/29/2011 0 08/26/2011 Inactive trimethoprim 100 mg Tab RxNorm: 665557 1 Tablet(s) PO QHS 05/29/2011 07/21/2012 Inactive Endocet 10 mg-325 mg Tab RxNorm: 0583090 1 Tablet(s) PO QID 012 2011 Inactive as needed for severe pain Valium 10 mg Tab RxNorm: 196379 1 Tablet(s) PO QHS N eed to take med as prescribed. this is a 40 day RX. No early fills. 05/17/2011 05/20/2018 Inactive propranolol 60 mg Tab RxNorm: 634216 1 Tablet(s) PO BID 04/16/2011 Inactive Neurontin 800 mg Tab RxNorm: 153071 1 Tablet(s) PO QHS 04/05/201103/2011 Inactive Endocet 10 mg-325 mg Tab RxNorm: 5743457 1 Tablet(s) PO QID 012 05/02/2011 Inactive as needed for severe pain oxycodone-acetaminophen 10 mg-325 mg tablet RxNorm: 5656987 1 Ta blet(s) PO Q4H 03/28/2011 05/19/2012 Inactive Valium 10 mg Tab RxNorm: 223538 1 Tablet(s) PO QHS 03/28/2011 012 Inactive buspirone 10 mg Tab RxNorm: 359967 1 Tablet(s) PO BID 03/27/201106/02 Inactive propranolol 60 mg Tab RxNorm: 466529 1 Tablet(s) PO BID 03/19/2011 Inactive Klor-Con M20 20 mEq Tab RxNorm: 4259540 1 Tablet(s) PO QD 03/19/2011 07/21/2012 Inactive Aricept 10 mg Tab RxNorm: 071822 1 Tablet(s) PO QD 02/27/2011 012 Inactive propranolol 60 mg Tab RxNorm: 516537 1 Tablet(s) PO BID 02/19/2011 Inactive omeprazole 40 mg capsule,delayed release RxNorm: 649481 1 Capsu le(s) PO BID 01/24/2011 05/23/2011 Inactive clindamycin 300 mg capsule RxNorm: 734668 1 Capsule(s) PO TID 01/2402/02/2011 Inactive propranolol 60 mg Tab RxNorm: 515021 1 Tablet(s) PO BID 01/22/2011 No Stop Date Active nystatin 100,000 unit/g Topical Cream RxNorm: 920949 Applicatio n TOP BID 01/15/2011 01/14/2011 Inactive to rash for 2-4 week s Diflucan 200 mg Tab RxNorm: 206678 1 Tablet(s) PO QD 01/15/201101/28 Inactive buspirone 10 mg Tab RxNorm: 858064 1 Tablet(s) PO BID 01/08/201103/05 Inactive Valium 10 mg Tab RxNorm: 386094 1 Tablet(s) PO QHS 01/05/2011 012 Inactive Diflucan 200 mg Tab RxNorm: 477581 1 Tablet(s) PO QD 01/01/201101/14 Inactive Diflucan 200 mg Tab RxNorm: 920428 1 Tablet(s) PO QD 12/18/201012/31 Inactive Valium 10 mg Tab RxNorm: 564122 1 Tablet(s) PO QHS 12/12/2010 011 Inactive Diflucan 200 mg Tab RxNorm: 792340 1 Tablet(s) PO QD 12/07/201012/18 Inactive Aricept 10 mg Tab RxNorm: 924393 1 Tablet(s) PO QD 11/20/2010 011 Inactive ropinirole 1 mg Tab RxNorm: 331247 1 Tablet(s) PO QHS 11/16/201005/03 Inactive enalapril maleate 5 mg Tab RxNorm: 773456 1 Tablet(s) PO QD 011 05/20/2018 Inactive buspirone 10 mg Tab RxNorm: 225141 1 Tablet(s) PO BID 11/16/201012/02 Inactive Valium 10 mg Tab RxNorm: 958511 1 Tablet(s) PO QHS 11/07/2010 011 Inactive Pyridium 100 mg Tab RxNorm: 3170130 1 Tablet(s) PO TID 11/02/201004/2010 Inactive Macrobid 100 mg Cap RxNorm: 9156526 1 Capsule(s) PO BID 11/02/2010 Inactive buspirone 10 mg Tab RxNorm: 942827 1 Tablet(s) PO QHS 10/18/201005/02 Inactive propranolol 60 mg Tab RxNorm: 428076 1 Tablet(s) PO BID 09/18/2010 Inactive Valium 10 mg Tab RxNorm: 468712 1 Tablet(s) PO QHS 09/05/2010 011 Inactive Aricept 10 mg Tab RxNorm: 504748 1 Tablet(s) PO QD 08/14/2010 011 Inactive Valium 10 mg Tab RxNorm: 881530 1 Tablet(s) PO QHS 06/26/2010 011 Inactive ropinirole 1 mg Tab RxNorm: 028197 1 Tablet(s) PO QHS 06/19/201010/02 Inactive omeprazole 40 mg Cap, delayed release RxNorm: 258518 1 Capsule( s) PO QD 06/07/2010 10/04/2010 Inactive Endocet 10 mg-325 mg Tab RxNorm: 9890657 1 Tablet(s) PO QID as needed for severe pain 06/07/2010 03/07/2011 Inactive Endocet 10 mg-325 mg Tab RxNorm: 1991818 1 Tablet(s) PO QID as needed for severe pain 05/04/2010 06/02/2010 Inactive Valium 10 mg Tab RxNorm: 761353 1 Tablet(s) PO QHS 05/01/2010 011 Inactive propranolol 60 mg Tab RxNorm: 370898 1 Tablet(s) PO BID 04/03/2010 Inactive Valium 10 mg Tab RxNorm: 138727 1 Tablet(s) PO QHS 03/28/2010 011 Inactive omeprazole 40 mg Cap, Delayed Release RxNorm: 779665 1 Capsule( s) PO QD 03/28/2010 06/06/2010 Inactive Endocet 10 mg-325 mg Tab RxNorm: 9474623 1 Tablet(s) PO QID prn ari n 03/27/2010 05/20/2018 Inactive Valium 10 mg Tab RxNorm: 339821 1 Tablet(s) PO QHS 02/20/2010 011 Inactive Diflucan 100 mg Tab RxNorm: 377680 1 Tablet(s) PO BID 01/23/201003/2009 Inactive Diflucan 100 mg Tab RxNorm: 382008 1 Tablet(s) PO BID 01/05/201001/02 Inactive Aricept 10 mg Tab RxNorm: 995672 1 Tablet(s) PO QD 12/01/2009 011 Inactive OxyContin 20 mg 12 hr Tab RxNorm: 5035181 1 Tablet(s) PO BID 200904/05/2010 Inactive oxycodone-acetaminophen 10 mg-325 mg Tab RxNorm: 4463430 1 Table t(s) PO Q4H 11/22/2009 11/26/2009 Inactive Phenergan 25 mg Tab RxNorm: 831816 1 Tablet(s) PO PRN MIGRAINE 11/0303/07/2011 Inactive Demerol 100 mg Tab RxNorm: 585946 1 Tablet(s) PO PRN MIGRAINE 11/2203/07/2011 Inactive Oxycodone-Acetaminophen 10 mg-325 mg Tab RxNorm: 9131836 1 Table t(s) PO Q4H 10/11/2009 10/15/2009 Inactive Percocet 10 mg-325 mg Tab RxNorm: 0095424 1 Tablet(s) PO Q4H 200910/24/2009 Inactive propranolol 60 mg Tab RxNorm: 573454 1 Tablet(s) PO BID 08/29/2009 Inactive Valium 10 mg Tab RxNorm: 257654 1 Tablet(s) PO QHS 08/16/2009 010 Inactive Keflex 500 mg Cap RxNorm: 798399 1 Capsule(s) PO BID 07/25/200907/31 Inactive Hydroxyzine 25 mg Tab RxNorm: 392829 1 Tablet(s) PO TID 07/25/2009 Inactive Prednisone 20 mg Tab RxNorm: 978327 1 Tablet(s) PO BID 07/25/2009 Inactive Demerol 100 mg Tab RxNorm: 379282 1 Tablet(s) PO PRN MIGRAINE 07/25 No Stop Date Active Ropinirole 1 mg Tab RxNorm: 400528 1 Tablet(s) PO HS 07/20/200902/14 Inactive Valium 10 mg Tab RxNorm: 525680 1 Tablet(s) PO QHS 07/18/2009 010 Inactive Endocet 10 mg-325 mg Tab RxNorm: 1871112 1 Tablet(s) PO TID 010 07/07/2009 Inactive Demerol 100 mg Tab RxNorm: 827437 1 Tablet(s) PO PRN MIGRAINE 06/08 No Stop Date Active Ropinirole 1 mg Tab RxNorm: 489721 1 Tablet(s) PO HS 05/16/200907/14 Inactive ipratropium-albuterol 0.5 mg-3 mg(2.5 mg base)/3 mL ne bulization soln RxNorm: 5269206 1 Unit Dose INH Q4H as needed No Start Date Active MagOx 400 mg (241.3 mg magnesium) tablet RxNorm: 869174 1 Table t(s) PO BID No Start Date Active Vitamin B12 1000mcg Tablet RxNorm: 1 Tablet(s) PO QD No Start Date Active Vitamin D3 5,000 unit tablet RxNorm: 147823 1 Tablet(s) PO QD No Star t Date Active Tylenol Arthritis Pain 650 mg tablet,extended release RxNorm : 5495616 1 Tablet(s) PO Q4H No Start Date Active Lotrimin AF 2 % topical powder RxNorm: 203752 1 Application TOP BID No Start Date Active enalapril maleate 5 mg Tab RxNorm: 151022 1 Tablet(s) PO QD No Star t Date 07/20/2012 Inactive Demerol 100 mg Tab RxNorm: 214471 Tablet(s) PO PRN MIGRAINE No Star t Date 06/02/2009 Inactive metformin 500 mg tablet RxNorm: 492620 1 Tablet(s) PO QD No Start D ate 04/05/2013 Inactive Breo Ellipta 100 mcg-25 mcg/dose powder for inhalation RxNor m: 6637105 1 Puff(s) INH BID No Start Date 01/04/2016 Inactive Mag-Oxide 400 mg Tab RxNorm: 155579 1 Tablet(s) PO QD No Start Date 0 07/21/2012 Inactive Cipro 500 mg Tab RxNorm: 128238 1 Tablet(s) PO QD No Start Date 04/05 Inactive Ativan 0.5 mg tablet RxNorm: 537792 1 Tablet(s) PO TID as needed No Start Date 05/06/2019 Inactive melatonin 3 mg tablet RxNorm: 547632 2 Tablet(s) PO QHS No Start Da te 08/19/2018 Inactive buspirone 10 mg Tab RxNorm: 747745 1 Tablet(s) PO QD No Start Date Inactive sucralfate 100 mg/mL Oral Susp RxNorm: 885652 2 Teaspoon(s) PO QID No Start Date 07/21/2012 Inactive hydrocodone 5 mg-acetaminophen 325 mg tablet RxNorm: 848726 1 Tablet(s) PO Q4H as needed No Start Date 08/19/2018 Inactive Amaryl 2 mg tablet RxNorm: 984529 1 Tablet(s) PO BID No Start Date Inactive OxyContin 20 mg 12 hr Tab RxNorm: 5978000 1 Tablet(s) PO BID No Sta rt Date 11/27/2009 Inactive propranolol 40 mg tablet RxNorm: 913346 1 Tablet(s) PO QID No Start Date 01/19/2018 Inactive Trazadone 150 mg Tablet RxNorm: 1-2 Tablet(s) PO QHS prn sleep No Start Date 08/09/2010 Inactive propranolol 60 mg Tab RxNorm: 017135 1/2 Tablet(s) PO BID No Start Date 01/21/2011 Inactive insulin NPH and regular human subcutaneous RxNorm: 1178485 subcu taneous No Start Date 11/20/2018 Inactive Ativan 0.5 mg tablet RxNorm: 200826 1 Tablet(s) PO QID No Start Date 06/18/2016 Inactive Vasotec 5 mg Tab RxNorm: 997512 1 Tablet(s) PO BID No Start Date 06/2011 Inactive Toprol XL 50 mg tablet,extended release RxNorm: 206871 1 Tablet (s) PO BID No Start Date 04/05/2013 Inactive Ativan 0.5 mg tablet RxNorm: 185942 1 Tablet(s) PO TID No Start Date 05/25/2016 Inactive Klor-Con M20 20 mEq Tab RxNorm: 5793953 1 Tablet(s) PO QD No Start Date 03/19/2011 Inactive sumatriptan 100 mg tablet RxNorm: 044594 1 Tablet(s) PO at headache onset--repeat in 2hrs if remains No Start Date 07/21/2012 Inactive propranolol 60 mg Tab RxNorm: 250263 1 Tablet(s) PO BID No Start Da te 08/28/2009 Inactive Cholestyramine Light 4 gram Oral Powder RxNorm: 4970070 1 Unit Dose PO QD in water No Start Date 07/21/2012 Inactive nystatin 100,000 unit/g Topical Powder RxNorm: 892312 Applicati on TOP BID No Start Date 07/21/2012 Inactive vitamin [id number] acid sublingual RxNorm: sublingual No Start Date 07/05/2013 Inactive cyclobenzaprine 5 mg tablet RxNorm: 328832 1/2-1 Tablet (s) PO TID as needed for muscle spasm No Start Date 07/18/2017 Inactive tramadol 50 mg tablet RxNorm: 142410 2 Tablet(s) PO TID as need ed for pain No Start Date 09/01/2014 Inactive aspirin 81 mg Tab RxNorm: 710555 1 Tablet(s) PO QOD No Start Date 04/2013 Inactive Vitamin B12 1000mcg Tablet RxNorm: 1 Tablet(s) PO QD No Start Date 07/18/2017 Inactive cholestyramine (with sugar) 4 gram oral powder RxNorm: 64708 3 1 Unit(s) PO QD as needed No Start Date 05/20/2018 Inactive ProAir HFA 90 mcg/Actuation Aerosol Inhaler RxNorm: 189163 2 Puff(s) INH Q4H prn shortness of breath No Start Date 07/21/2012 Inactive pravastatin 10 mg Tab RxNorm: 598901 1 Tablet(s) PO QD No Start Date 07/21/2012 Inactive gabapentin 800 mg Tab RxNorm: 520887 1 Tablet(s) PO BID No Start Da te 06/03/2011 Inactive Endocet 10 mg-325 mg Tab RxNorm: 3180071 1 Tablet(s) PO TID No Star t Date 06/02/2009 Inactive Naproxen 500 mg Tab RxNorm: 755686 1 Tablet(s) PO BID No Start Date 0 04/05/2010 Inactive Valium 10 mg Tab RxNorm: 323486 1 Tablet(s) PO BID No Start Date 07/04 Inactive enalapril maleate 5 mg Tab RxNorm: 435705 1 Tablet(s) PO QD No Star t Date 11/15/2010 Inactive doxepin 10 mg capsule RxNorm: 1202565 2 Capsule(s) PO QHS No Start Date 09/17/2018 Inactive MS Contin 15 mg Tab RxNorm: 498873 1 Tablet(s) PO BID No Start Date 0 09/18/2010 Inactive buspirone 5 mg tablet RxNorm: 712164 1 Tablet(s) PO TID No Start Da te 12/01/2013 Inactive [place] 3 Fish Oil Cap RxNorm: 1 Capsule(s) PO QD No Start Date 07/03 Inactive enalapril maleate 5 mg Tab RxNorm: 828190 1/2 Tablet(s) PO QD No St art Date 03/07/2011 Inactive Lyrica 75 mg capsule RxNorm: 058980 1 Capsule(s) PO QHS No Start Da te 02/08/2014 Inactive Lopressor 100 mg tablet RxNorm: 293903 1 Tablet(s) PO BID No Start Date 06/08/2018 Inactive Lantus Solostar U-100 Insulin 100 unit/mL (3 mL) subcu taneous pen RxNorm: 259912 45 Unit(s) SQ QAM No Start Date 05/20/2018 Inactive aspirin 81 mg tablet RxNorm: 420142 1 Tablet(s) PO QD No Start Date 0 09/14/2015 Inactive diltiazem CD 240 mg capsule,extended release 24 hr RxNorm: 8 76778 1 Capsule(s) PO QD No Start Date 05/25/2019 Inactive insulin NPH isophane U-100 human subcutaneous RxNorm: 173352 beckwith bcutaneous No Start Date 04/20/2019 Inactive sumatriptan 100 mg tablet RxNorm: 290113 1 Tablet(s) PO at headache onset. May repeat 1 in two hours if headache remains. Max of 2 per 24 hours No Start Date 04/01/2018 Inactive gabapentin 300 mg capsule RxNorm: 417106 1 Capsule(s) PO QHS No Sta rt Date 02/04/2018 Inactive Topamax 25 mg Tab RxNorm: 813834 Oral No Start Date 03/07/2011 In active Senokot-S 8.6 mg-50 mg Tab RxNorm: 2543236 1 Tablet(s) PO QD No Sta rt Date 03/07/2011 Inactive metformin ER 500 mg 24 hr tablet,extended release RxNorm: 18 82922 1 Tablet(s) PO QD No Start Date 05/20/2018 Inactive Symbicort 80 mcg-4.5 mcg/actuation HFA Aerosol Inhaler RxNor m: 4413759 2 Puff(s) INH BID No Start Date 04/05/2013 Inactive metoprolol tartrate 25 mg tablet RxNorm: 121713 1 Tablet(s) PO BID No Start Date 05/20/2019 Inactive propranolol 60 mg Tab RxNorm: 464753 1/2 Tablet(s) PO BID No Start Date 07/21/2012 Inactive metformin ER 500 mg 24 hr tablet,extended release RxNorm: 18 21939 2 Tablet(s) PO QD No Start Date 12/16/2017 Inactive Insulin Syringe 1 mL 29 gauge x 1/2" RxNorm: 2 s yringes daily with insulin Dx: E11.65 No Start Date 10/07/2018 Inactive Amitriptyline 75 mg Tab RxNorm: 782411 1 Tablet(s) PO QHS No Start Date 10/23/2009 Inactive donepezil 10 mg Tab RxNorm: 852354 1 Tablet(s) PO QD No Start Date Inactive Lantus Solostar U-100 Insulin 100 unit/mL (3 mL) subcu taneous pen RxNorm: 742616 36 Unit(s) SQ QAM No Start Date 12/24/2017 Inactive Miacalcin 200 unit/Actuation Nasal [place] Aerosol RxNorm: 261 204 1 [place] NASAL QD Alternate nostrils each day No Start Date 04/05/2010 Inactive Amitriptyline 150 mg Tab RxNorm: 481830 1 Tablet(s) PO QHS No Start Date 01/04/2010 Inactive Bystolic 5 mg tablet RxNorm: 393717 1 Tablet(s) PO QD No Start Date 0 08/13/2012 Inactive Aricept 10 mg Tab RxNorm: 912443 1 Tablet(s) PO QD No Start Date 11/03 Inactive Lantus Solostar U-100 Insulin 100 unit/mL (3 mL) subcu taneous pen RxNorm: 420971 50 Unit(s) SQ QAM No Start Date 08/27/2018 Inactive albuterol sulfate 2.5 mg/3 mL (0.083 %) Neb Solution RxNorm: 924421 1 Unit Dose INH QID as needed No Start Date 08/23/2015 Inactive Symbicort 160 mcg-4.5 mcg/actuation HFA Aerosol Inhaler RxNo rm: 5719714 2 Puff(s) INH BID No Start Date 12/03/2011 Inactive Savella 50 mg Tab RxNorm: 209515 1 Tablet(s) PO BID No Start Date 04/2010 Inactive amitriptyline 100 mg Tab RxNorm: 945424 1 1/2 Tablet(s) PO QHS No S tart Date 06/19/2011 Inactive nystatin 100,000 unit/g Topical Cream RxNorm: 294908 Ap plication TOP BID to rash for 2-4 weeks No Start Date 01/14/2011 Inactive Trelegy Ellipta 100 mcg-62.5 mcg-25 mcg powder for inhalatio n RxNorm: 9320668 1 Puff(s) INH QD No Start Date 12/16/2017 Inactive Lyrica 150 mg capsule RxNorm: 918911 1 Capsule(s) PO QHS No Start D ate 12/04/2015 Inactive sennosides 8.6 mg tablet RxNorm: 439057 1 Tablet(s) PO BID No Start Date 09/07/2018 Inactive metformin ER 500 mg tablet,extended release 24 hr RxNorm: 86 0975 1 Tablet(s) PO QD No Start Date 10/22/2017 Inactive Fish Oil 1,000 mg Cap RxNorm: 1 Capsule(s) PO QD No Start Date 06/2011 Inactive Zyrtec 10 mg Tab RxNorm: 9189902 1 Tablet(s) PO QD No Start Date 07/03 Inactive albuterol sulfate HFA 90 mcg/actuation aerosol inhaler RxNor m: 3901270 2 Puff(s) INH Q4H as needed for cough No Start Date 09/30/2013 Inactive trazodone 150 mg tablet RxNorm: 239949 1 Tablet(s) PO QHS No Start Date 07/21/2012 Inactive Spiriva with HandiHaler 18 mcg & inhalation capsules RxNorm: 299450 1 Capsule(s) INH QD No Start Date 04/05/2013 Inactive Coreg 3.125 mg Tab RxNorm: 344704 1 Tablet(s) PO BID No Start Date Inactive Phenergan 25 mg Tab RxNorm: 495564 Tablet(s) PO PRN MIGRAINE No Sta rt Date 11/21/2009 Inactive Vitamin D 50,000 unit Cap RxNorm: 4281255 1 Capsule(s) PO QW No Sta rt Date 03/07/2011 Inactive Januvia 100 mg tablet RxNorm: 243984 1 Tablet(s) PO QD No Start Date 10/25/2015 Inactive Eliquis 5 mg tablet RxNorm: 6951960 1 Tablet(s) PO BID No Start Date 08/19/2018 Inactive Advair Diskus 500 mcg-50 mcg/Dose for Inhalation RxNorm: 668625 1 INH BID No Start Date 07/21/2012 Inactive Vitamin D3 5,000 unit tablet RxNorm: 695464 1 Tablet(s) PO QD No St art Date 07/18/2017 Inactive Amaryl 2 mg tablet RxNorm: 996941 1 Tablet(s) PO QD No Start Date 06/2015 Inactive Actos 30 mg tablet RxNorm: 122031 1 Tablet(s) PO QD No Start Date Inactive promethazine 25 mg tablet RxNorm: 239194 1 Tablet(s) PO Q4H prn N/V No Start Date 07/21/2012 Inactive ProAir HFA 90 mcg/actuation Aerosol Inhaler RxNorm: 570304 2 Puff(s) INH Q4H prn dyspnea No Start Date 07/21/2012 Inactive Dexilant 60 mg Capsule RxNorm: 641857 1 Capsule(s) PO QD No Start D ate 01/27/2012 Inactive Lantus Solostar U-100 Insulin 100 unit/mL (3 mL) subcu taneous pen RxNorm: 626639 38 Unit(s) SQ QAM No Start Date 05/20/2018 Inactive Valium 10 mg Tab RxNorm: 849449 1 Tablet(s) PO QHS AND PRN No Start Date 10/24/2009 Inactive ZOFRAN ODT 8 mg disintegrating tablet RxNorm: 874137 1 Tablet(s ) PO Q6H No Start [...] Date S ervice Location MICROALBUMIN URINE RANDOM 81097 MICRL MG/L 14.9 MG/L Unknown MICROALBUMIN URINE RANDOM 38013 XM.ALB/CRE 6.1 MG/GCR Unknown MICROALBUMIN URINE RANDOM 67758 CREAT MG/D 243 MG/DL Unknown MICROALBUMIN URINE RANDOM 63950 CRE/100 2.43 G/L 03/05 Unknown PROTEIN/CREAT URINE WITH RATIO 39795|87327 PROT R U 14 MG/D L 04/01/2014 Unknown PROTEIN/CREAT URINE WITH RATIO 90679|58139 CREAT R U 254 MG/ DL 04/01/2014 Unknown PROTEIN/CREAT URINE WITH RATIO 65215|39179 XRATIO P/C 55 MG/ G 04/01/2014 Unknown URINALYSIS 14994 PROTEIN UR NEG 04/28/2010 Unknown URINALYSIS 83287 HEMGLBN UR NEG 04/28/2010 Unknown URINALYSIS 87778 GLUCOSE UR NEG 04/28/2010 Unknown URINALYSIS 43632 KETONES UR NEG 04/28/2010 Unknown URINALYSIS 99425 PH U 5.5 04/28/2010 Unknown URINALYSIS 71623 SP GR U 1.025 04/28/2010 Unknown URINALYSIS 42887 BILRUBN UR NEG 04/28/2010 Unknown URINALYSIS 21334 LEUKO UR 2+ 04/28/2010 Unknown URINALYSIS 01332 NITRITE UR NEG 04/28/2010 Unknown MICR CUL? [id number] WBC/HPF 6-10 04/28/2010 Unknown MICR CUL? [id number] RBC/HPF 0-5 04/28/2010 Unknown MICR CUL? [id number] HYAL CAST 16-25 04/28/2010 Unknown MICR CUL? [id number] SP TO YOLIE? NO 04/28/2010 Unknown MICR CUL? [id number] APPEAR UR NORMAL 04/28/2010 Unknown MICR CUL? [id number] SQ EPI/LPF FEW 04/28/2010 Unknown Procedures Procedure Codes Date URINALYSIS NONAUTO W/O SCOPE CPT-4: 37478 04/16/2019 URINE CULTURE/ COLONY COUNT CPT-4: 23020 04/16/2019 CEFTRIAXONE SODIUM INJECTION CPT-4: J0696 04/16/2019 THER/PROPH/DIAG INJ SC/IM CPT-4: 80869 04/16/2019 DRAIN/INJECT JOINT/BURSA CPT-4: 87737 01/22/2019 TRIAMCINOLONE ACET INJ NOS CPT-4: J3301 01/22/2019 DEXAMETHASONE SODIUM PHOS CPT-4: J1100 01/22/2019 URINE CULTURE/ COLONY COUNT CPT-4: 46131 01/07/2019 URINALYSIS NONAUTO W/O SCOPE CPT-4: 10767 01/07/2019 CEFTRIAXONE SODIUM INJECTION CPT-4: J0696 01/07/2019 THER/PROPH/DIAG INJ SC/IM CPT-4: 91453 01/07/2019 FLU VACC PRSV FREE INC ANTIG 65 AND OLDER CPT-4: 34042 12/24/2018 FLU VACC PRSV FREE INC ANTIG 65 AND OLDER CPT-4: 27639 12/24/2018 ADMIN INFLUENZA VIRUS VAC CPT-4: G0008 12/24/2018 THER/PROPH/DIAG INJ SC/IM CPT-4: 16809 11/04/2018 KETOROLAC TROMETHAMINE INJ CPT-4: J1885 11/04/2018 PROMETHAZINE HCL INJECTION CPT-4: J2550 11/04/2018 PPPS, subseq visit CPT-4: G0439 09/18/2018 THER/PROPH/DIAG INJ SC/IM CPT-4: 23755 04/01/2018 KETOROLAC TROMETHAMINE INJ CPT-4: J1885 04/01/2018 PROMETHAZINE HCL INJECTION CPT-4: J2550 04/01/2018 URINE CULTURE/ COLONY COUNT CPT-4: 21243 03/17/2018 URINALYSIS NONAUTO W/O SCOPE CPT-4: 35976 03/17/2018 FLU VACC PRSV FREE INC ANTIG 65 AND OLDER CPT-4: 48082 12/17/2017 PNEUMOCOCCAL VACC 23 RANDALL IM CPT-4: 87078 12/17/2017 ADMIN INFLUENZA VIRUS VAC CPT-4: G0008 12/17/2017 ADMIN PNEUMOCOCCAL VACCINE CPT-4: G0009 12/17/2017 PPPS, subseq visit CPT-4: G0439 09/17/2017 THER/PROPH/DIAG INJ SC/IM CPT-4: 35477 08/26/2017 KETOROLAC TROMETHAMINE INJ CPT-4: J1885 08/26/2017 PROMETHAZINE HCL INJECTION CPT-4: J2550 08/26/2017 URINALYSIS NONAUTO W/O SCOPE CPT-4: 06678 07/19/2017 URINE CULTURE/ COLONY COUNT CPT-4: 24040 07/19/2017 CEFTRIAXONE SODIUM INJECTION CPT-4: J0696 07/19/2017 THER/PROPH/DIAG INJ SC/IM CPT-4: 46716 07/19/2017 THER/PROPH/DIAG INJ SC/IM CPT-4: 94014 07/19/2017 TRIAMCINOLONE ACET INJ NOS CPT-4: J3301 07/19/2017 PRESCRIP TRANSMIT VIA ERX SY CPT-4: G8553 05/07/2017 PRESCRIP TRANSMIT VIA ERX SY CPT-4: G8553 02/22/2017 PRESCRIP TRANSMIT VIA ERX SY CPT-4: G8553 01/23/2017 FLU VACC PRSV FREE INC ANTIG 65 AND OLDER CPT-4: 16984 12/20/2016 PNEUMOCOCCAL VACC 13 RANDALL IM CPT-4: 93965 12/20/2016 ADMIN INFLUENZA VIRUS VAC CPT-4: G0008 12/20/2016 ADMIN PNEUMOCOCCAL VACCINE CPT-4: G0009 12/20/2016 URINALYSIS NONAUTO W/O SCOPE CPT-4: 73377 10/08/2016 URINE CULTURE/ COLONY COUNT CPT-4: 73270 10/08/2016 PRESCRIP TRANSMIT VIA ERX SY CPT-4: G8553 10/08/2016 PRESCRIP TRANSMIT VIA ERX SY CPT-4: G8553 09/19/2016 PRESCRIP TRANSMIT VIA ERX SY CPT-4: G8553 08/20/2016 PRESCRIP TRANSMIT VIA ERX SY CPT-4: G8553 02/29/2016 KETOROLAC TROMETHAMINE INJ CPT-4: J1885 02/02/2016 THER/PROPH/DIAG INJ SC/IM CPT-4: 39965 02/02/2016 PROMETHAZINE HCL INJECTION CPT-4: J2550 02/02/2016 PRESCRIP TRANSMIT VIA ERX SY CPT-4: G8553 02/02/2016 FLU VACC PRSV FREE INC ANTIG 65 AND OLDER CPT-4: 76113 01/05/2016 PPPS, subseq visit CPT-4: G0439 01/05/2016 ADMIN INFLUENZA VIRUS VAC CPT-4: G0008 01/05/2016 URINE CULTURE/ COLONY COUNT CPT-4: 53521 12/05/2015 URINALYSIS NONAUTO W/O SCOPE CPT-4: 22804 12/05/2015 PRESCRIP TRANSMIT VIA ERX SY CPT-4: G8553 12/05/2015 PRESCRIP TRANSMIT VIA ERX SY CPT-4: G8553 10/26/2015 URINALYSIS NONAUTO W/O SCOPE CPT-4: 05245 10/05/2015 URINE CULTURE/ COLONY COUNT CPT-4: 24825 10/05/2015 PRESCRIP TRANSMIT VIA ERX SY CPT-4: G8553 10/05/2015 MD SERVICE REQUIRED FOR PMD CPT-4: G0372 09/15/2015 PRESCRIP TRANSMIT VIA ERX SY CPT-4: G8553 09/15/2015 SPECIAL REPORTS OR FORMS CPT-4: 40432 08/25/2015 PRESCRIP TRANSMIT VIA ERX SY CPT-4: G8553 07/05/2015 URINALYSIS NONAUTO W/O SCOPE CPT-4: 96696 03/30/2015 ASSAY, GLUCOSE, BLOOD QUANT CPT-4: 18409 03/30/2015 URINE CULTURE/ COLONY COUNT CPT-4: 68963 03/30/2015 PRESCRIP TRANSMIT VIA ERX SY CPT-4: G8553 03/30/2015 PRESCRIP TRANSMIT VIA ERX SY CPT-4: G8553 02/03/2015 FLU VACC PRSV FREE INC ANTIG 65 AND OLDER CPT-4: 21308 12/29/2014 ADMIN INFLUENZA VIRUS VAC CPT-4: G0008 12/29/2014 PRESCRIP TRANSMIT VIA ERX SY CPT-4: G8553 12/29/2014 PRESCRIP TRANSMIT VIA ERX SY CPT-4: G8553 09/02/2014 PROTEIN/CREAT URINE WITH RATIO CPT-4: 33687|17524 5 MICROALBUMIN QUANTITATIVE CPT-4: 73757 04/01/2014 PRESCRIP TRANSMIT VIA ERX SY CPT-4: G8553 03/16/2014 PRESCRIP TRANSMIT VIA ERX SY CPT-4: G8553 03/09/2014 THER/PROPH/DIAG INJ SC/IM CPT-4: 34201 03/01/2014 TRIAMCINOLONE ACET INJ NOS CPT-4: J3301 03/01/2014 PRESCRIP TRANSMIT VIA ERX SY CPT-4: G8553 02/09/2014 URINE CULTURE/ COLONY COUNT CPT-4: 86362 10/30/2013 URINALYSIS NONAUTO W/O SCOPE CPT-4: 66454 10/21/2013 URINE CULTURE/ COLONY COUNT CPT-4: 72056 10/21/2013 DESTRUCT PREMALG LESION (Cryosurgery) CPT-4: 04811 PRESCRIP TRANSMIT VIA ERX SY CPT-4: G8553 10/05/2013 URINALYSIS NONAUTO W/O SCOPE CPT-4: 48638 08/04/2013 URINE CULTURE/ COLONY COUNT CPT-4: 42621 08/04/2013 PRESCRIP TRANSMIT VIA ERX SY CPT-4: G8553 08/04/2013 THER/PROPH/DIAG INJ SC/IM CPT-4: 30359 07/13/2013 TRIAMCINOLONE ACET INJ NOS CPT-4: J3301 07/13/2013 PRESCRIP TRANSMIT VIA ERX SY CPT-4: G8553 05/27/2013 URINALYSIS NONAUTO W/O SCOPE CPT-4: 53579 05/25/2013 URINE CULTURE/ COLONY COUNT CPT-4: 56854 05/25/2013 THER/PROPH/DIAG INJ SC/IM CPT-4: 42615 05/04/2013 VITAMIN B12 INJECTION CPT-4: J3420 05/04/2013 THER/PROPH/DIAG INJ SC/IM CPT-4: 66465 04/17/2013 VITAMIN B12 INJECTION CPT-4: J3420 04/17/2013 THER/PROPH/DIAG INJ SC/IM CPT-4: 79741 04/17/2013 METHYLPREDNISOLONE 40 MG INJ CPT-4: J1030 04/17/2013 TRIAMCINOLONE ACET INJ NOS CPT-4: J3301 04/17/2013 URINALYSIS NONAUTO W/O SCOPE CPT-4: 64934 04/06/2013 URINE CULTURE/ COLONY COUNT CPT-4: 61936 04/06/2013 PRESCRIP TRANSMIT VIA ERX SY CPT-4: G8553 04/06/2013 KETOROLAC TROMETHAMINE INJ CPT-4: J1885 06/25/2012 PROMETHAZINE HCL INJECTION CPT-4: J2550 06/25/2012 THER/PROPH/DIAG INJ SC/IM CPT-4: 97146 06/25/2012 THER/PROPH/DIAG INJ SC/IM CPT-4: 92103 06/24/2012 METHYLPREDNISOLONE 40 MG INJ CPT-4: J1030 06/24/2012 TRIAMCINOLONE ACET INJ NOS CPT-4: J3301 06/24/2012 URINE CULTURE/ COLONY COUNT CPT-4: 70041 06/24/2012 THER/PROPH/DIAG INJ SC/IM CPT-4: 22939 05/20/2012 KETOROLAC TROMETHAMINE INJ CPT-4: J1885 05/20/2012 THER/PROPH/DIAG INJ SC/IM CPT-4: 77435 05/20/2012 PROMETHAZINE HCL INJECTION CPT-4: J2550 05/20/2012 DRAIN/INJECT JOINT/BURSA CPT-4: 84923 02/13/2012 METHYLPREDNISOLONE 40 MG INJ CPT-4: J1030 02/13/2012 TRIAMCINOLONE ACET INJ NOS CPT-4: J3301 02/13/2012 THER/PROPH/DIAG INJ SC/IM CPT-4: 77896 11/14/2011 METHYLPREDNISOLONE 40 MG INJ CPT-4: J1030 11/14/2011 TRIAMCINOLONE ACET INJ NOS CPT-4: J3301 11/14/2011 THER/PROPH/DIAG INJ SC/IM CPT-4: 05674 09/12/2011 KETOROLAC TROMETHAMINE INJ CPT-4: J1885 09/12/2011 THER/PROPH/DIAG INJ SC/IM CPT-4: 24031 08/09/2011 METHYLPREDNISOLONE 40 MG INJ CPT-4: J1030 08/09/2011 TRIAMCINOLONE ACET INJ NOS CPT-4: J3301 08/09/2011 URINE CULTURE/ COLONY COUNT CPT-4: 20975 07/03/2011 URINE CULTURE/ COLONY COUNT CPT-4: 89094 06/04/2011 THER/PROPH/DIAG INJ SC/IM CPT-4: 59024 05/03/2011 METHYLPREDNISOLONE 40 MG INJ CPT-4: J1030 05/03/2011 TRIAMCINOLONE ACET INJ NOS CPT-4: J3301 05/03/2011 URINALYSIS NONAUTO W/O SCOPE CPT-4: 77321 01/24/2011 URINE CULTURE/ COLONY COUNT CPT-4: 86963 01/24/2011 FLUZONE, 5ML (Medicare) CPT-4: Q2038 01/02/2011 ADMIN INFLUENZA VIRUS VAC CPT-4: G0008 01/02/2011 ASSAY, GLUCOSE, BLOOD QUANT CPT-4: 78782 12/07/2010 URINE CULTURE/ COLONY COUNT CPT-4: 56149 11/02/2010 THER/PROPH/DIAG INJ SC/IM CPT-4: 32646 10/18/2010 METHYLPREDNISOLONE 40 MG INJ CPT-4: J1030 10/18/2010 TRIAMCINOLONE ACET INJ NOS CPT-4: J3301 10/18/2010 TRIAMCINOLONE ACET INJ NOS CPT-4: J3301 05/11/2010 METHYLPREDNISOLONE 40 MG INJ CPT-4: J1030 05/11/2010 THER/PROPH/DIAG INJ SC/IM CPT-4: 28142 05/11/2010 TRIAMCINOLONE ACET INJ NOS CPT-4: J3301 02/09/2010 METHYLPREDNISOLONE 40 MG INJ CPT-4: J1030 02/09/2010 THER/PROPH/DIAG INJ SC/IM CPT-4: 92853 02/09/2010 SERVICE REQUIRED FOR PMD CPT-4: G0372 02/09/2010 FLU VACCINE 3 YRS & > IM UP 64 CPT-4: 19314 0 PNEUMOCOCCAL VACC 23 RANDALL IM CPT-4: 73497 12/07/2009 ADMIN INFLUENZA VIRUS VAC CPT-4: G0008 12/07/2009 ADMIN PNEUMOCOCCAL VACCINE CPT-4: G0009 12/07/2009 TRIAMCINOLONE ACET INJ NOS CPT-4: J3301 05/26/2009 THER/PROPH/DIAG INJ SC/IM CPT-4: 90339 05/26/2009 METHYLPREDNISOLONE 80 MG INJ CPT-4: J1040 05/26/2009 Vital Signs Date Vital 08/04/2019 Blood Pressure 1: 133/67 Code: 8480-6 [...] 1: 114/72 Code: 8480-6 BMI: 37.8 Code: 83003-4 Heart Rate 1: 72 bpm Height: 5'3" [...] 1: 106/68 Code: 8480-6 BMI: 35.7 Code: 80394-8 Heart Rate 1: 72 bpm Height: 5'4" Respiratory Rate: 20 bpm SpO2: 98% Tempera ture: 36.7 (C) / 98.0 (F) Weight: 208 lbs 04/16/2018 Blood Pressure 1: 132/82 Code: 8480-6 BMI: 37.9 Code: 87796-6 Heart Rate 1: 72 bpm Height: 5'4" Respiratory Rate: 20 bpm SpO2: 96% Tempera ture: 37.1 (C) / 98.8 (F) Weight: 221 lbs 04/01/2018 Blood Pressure 1: 150/90 Code: 8480-6 Heart Rate 1: 72 bpm Respiratory Rate: 22 bpm SpO2: 95% Temperature: 36.4 (C) / 97.6 (F) We ight: 216 lbs 03/06/2018 Blood Pressure 1: 126/78 Code: 8480-6 BMI: 37.4 Code: 58241-3 Heart Rate 1: 68 bpm Height: 5'4" [...] ight: 222 lbs 12/25/2017 BMI: 37.8 Code: 91065-3 Heart Rate 1: 76 bpm Height: 5 '4" Respiratory Rate: 20 bpm SpO2: 96% Temperature: 37.3 (C) / 99.2 (F) Weight: 220 lbs 12/17/2017 Blood Pressure 1: 132/78 Code: 8480-6 BMI: 37.2 Code: 38033-3 Heart Rate 1: 88 bpm Height: 5'4" Respiratory Rate: 20 bpm SpO2: 96% Tempera ture: 37.3 (C) / 99.2 (F) Weight: 217 lbs 10/30/2017 Blood Pressure 1: 114/68 Code: 8480-6 BMI: 36.4 Code: 24816-2 Heart Rate 1: 72 bpm Height: 5'4" Respiratory Rate: 22 bpm SpO2: 96% Tempera ture: 36.8 (C) / 98.2 (F) Weight: 212 lbs 10/23/2017 Blood Pressure 1: 124/78 Code: 8480-6 Heart Rate 1: 72 bpm Respiratory Rate: 24 bpm SpO2: 94% Temperature: 36.6 (C) / 97.9 (F) We ight: 212 lbs 09/17/2017 Blood Pressure 1: 128/82 Code: 8480-6 BMI: 37.4 Code: 30837-8 Heart Rate 1: 72 bpm Height: 5'4" Respiratory Rate: 20 bpm SpO2: 96% Tempera ture: 37.0 (C) / 98.6 (F) Weight: 218 lbs 07/19/2017 Blood Pressure 1: 136/84 Code: 8480-6 BMI: 36.6 Code: 24752-9 Heart Rate 1: 88 bpm Height: 5'4" Respiratory Rate: 20 bpm SpO2: 97% Tempera ture: 36.7 (C) / 98.0 (F) Weight: 213 lbs 05/29/2017 Blood Pressure 1: 136/82 Code: 8480-6 BMI: 36.7 Code: 75066-1 Heart Rate 1: 72 bpm Height: 5'4" Respiratory Rate: 20 bpm SpO2: 97% Tempera ture: 36.9 (C) / 98.4 (F) Weight: 214 lbs 05/07/2017 Blood Pressure 1: 122/80 Code: 8480-6 BMI: 37.1 Code: 32273-3 Heart Rate 1: 80 bpm Height: 5'4" Respiratory Rate: 24 bpm SpO2: 96% Tempera ture: 36.1 (C) / 97.0 (F) Weight: 216 lbs 03/18/2017 BMI: 36.7 Code: 34636-6 Heart Rate 1: 80 bpm Height: 5 '4" Respiratory Rate: 22 bpm SpO2: 95% Temperature: 36.9 (C) / 98.4 (F) Weight: 214 lbs 02/27/2017 Blood Pressure 1: 146/94 Code: 8480-6 BMI: 36.6 Code: 05285-3 Heart Rate 1: 76 bpm Height: 5'4" Respiratory Rate: 22 bpm SpO2: 97% Tempera ture: 36.6 (C) / 97.9 (F) Weight: 213 lbs 02/22/2017 Blood Pressure 1: 126/90 Code: 8480-6 BMI: 36.4 Code: 89829-4 Heart Rate 1: 84 bpm Height: 5'4" Respiratory Rate: 22 bpm SpO2: 95% Tempera ture: 36.9 (C) / 98.4 (F) Weight: 212 lbs 01/23/2017 Blood Pressure 1: 146/82 Code: 8480-6 BMI: 37.6 Code: 62534-1 Heart Rate 1: 96 bpm Height: 5'4" Respiratory Rate: 20 bpm SpO2: 96% Tempera ture: 36.9 (C) / 98.4 (F) Weight: 219 lbs 12/20/2016 Blood Pressure 1: 126/70 Code: 8480-6 BMI: 37.2 Code: 15771-9 Heart Rate 1: 76 bpm Height: 5'4" Respiratory Rate: 22 bpm SpO2: 95% Tempera ture: 36.6 (C) / 97.8 (F) Weight: 217 lbs 10/08/2016 Blood Pressure 1: 128/82 Code: 8480-6 BMI: 36.9 Code: 78272-2 Heart Rate 1: 76 bpm Height: 5'4" Respiratory Rate: 20 bpm SpO2: 95% Tempera ture: 37.0 (C) / 98.6 (F) Weight: 215 lbs 09/19/2016 Blood Pressure 1: 144/78 Code: 8480-6 BMI: 37.8 Code: 44227-0 Heart Rate 1: 76 bpm Height: 5'4" Respiratory Rate: 22 bpm SpO2: 95% Tempera ture: 37.0 (C) / 98.6 (F) Weight: 220 lbs 08/20/2016 Blood Pressure 1: 140/86 Code: 8480-6 BMI: 37.4 Code: 73800-4 Heart Rate 1: 80 bpm Height: 5'4" Respiratory Rate: 20 bpm SpO2: 95% Tempera ture: 36.9 (C) / 98.4 (F) Weight: 218 lbs 06/19/2016 Blood Pressure 1: 124/78 Code: 8480-6 BMI: 37.8 Code: 27154-6 Heart Rate 1: 74 bpm Height: 5'4" Respiratory Rate: 24 bpm SpO2: 96% Tempera ture: 36.9 (C) / 98.4 (F) Weight: 220 lbs 06/04/2016 Blood Pressure 1: 12478 Code: 8480-6 BMI: 38.8 Code: 41285-8 Heart Rate 1: 72 bpm Height: 5'4" Respiratory Rate: 24 bpm SpO2: 95% Tempera ture: 36.8 (C) / 98.2 (F) Weight: 226 lbs 05/02/2016 Blood Pressure 1: 136/90 Code: 8480-6 BMI: 37.6 Code: 04744-2 Heart Rate 1: 72 bpm Height: 5'4" Respiratory Rate: 24 bpm SpO2: 96% Tempera ture: 36.9 (C) / 98.4 (F) Weight: 219 lbs 04/03/2016 Blood Pressure 1: 126/78 Code: 8480-6 BMI: 38.1 Code: 56327-3 Heart Rate 1: 72 bpm Height: 5'4" Respiratory Rate: 22 bpm SpO2: 94% Tempera ture: 36.9 (C) / 98.4 (F) Weight: 222 lbs 02/29/2016 Blood Pressure 1: 132/78 Code: 8480-6 Heart Rate 1: 78 bpm Height: Respiratory Rate: 24 bpm SpO2: 95% Temperature: 36.4 (C) / 97.6 (F) We ight: 02/02/2016 Blood Pressure 1: 124/78 Code: 8480-6 BMI: 37.6 Code: 48894-4 Heart Rate 1: 76 bpm Height: 5'4" Respiratory Rate: 20 bpm SpO2: 95% Tempera ture: 36.8 (C) / 98.2 (F) Weight: 219 lbs 01/05/2016 Blood Pressure 1: 126/70 Code: 8480-6 BMI: 37.1 Code: 62211-8 Heart Rate 1: 76 bpm Height: 5'4" Respiratory Rate: 20 bpm Temperature: 36 .6 (C) / 97.8 (F) Weight: 216 lbs 12/05/2015 Blood Pressure 1: 126/72 Code: 8480-6 BMI: 36.9 Code: 55727-0 Heart Rate 1: 92 bpm Height: 5'4" Respiratory Rate: 20 bpm Temperature: 36 .7 (C) / 98.1 (F) Weight: 215 lbs 10/26/2015 Blood Pressure 1: 142/80 Code: 8480-6 BMI: 36.4 Code: 74942-5 Heart Rate 1: 82 bpm Height: 5'4" Respiratory Rate: 24 bpm SpO2: 92% Tempera ture: 35.9 (C) / 96.7 (F) Weight: 212 lbs 10/05/2015 Blood Pressure 1: 136/82 Code: 8480-6 Heart Rate 1: 80 bpm Respiratory Rate: 18 bpm SpO2: 98% Temperature: 35.7 (C) / 96.3 (F) We ight: 214 lbs 09/15/2015 Blood Pressure 1: 116/80 Code: 8480-6 BMI: 34.6 Code: 61845-3 Heart Rate 1: 76 bpm Height: 5'6" Respiratory Rate: 20 bpm Temperature: 36 .6 (C) / 97.9 (F) Weight: 211 lbs 08/24/2015 Blood Pressure 1: 124/80 Code: 8480-6 BMI: 34.1 Code: 07151-2 Heart Rate 1: 68 bpm Height: 5'6" Respiratory Rate: 20 bpm Temperature: 36 .8 (C) / 98.3 (F) Weight: 208 lbs 07/05/2015 Blood Pressure 1: 114/78 Code: 8480-6 BMI: 33.9 Code: 23583-4 Heart Rate 1: 80 bpm Height: 5'6" Respiratory Rate: 20 bpm Temperature: 36 .6 (C) / 97.9 (F) Weight: 207 lbs 06/06/2015 Blood Pressure 1: 122/78 Code: 8480-6 BMI: 34.1 Code: 44622-9 Heart Rate 1: 76 bpm Height: 5'6" Respiratory Rate: 24 bpm SpO2: 96% Tempera ture: 36.4 (C) / 97.6 (F) Weight: 208 lbs 05/23/2015 Blood Pressure 1: 124/78 Code: 8480-6 Heart Rate 1: 76 bpm Respiratory Rate: 24 bpm SpO2: 93% Temperature: 36.8 (C) / 98.2 (F) We ight: 212 lbs 05/05/2015 Blood Pressure 1: 136/80 Code: 8480-6 BMI: 35.4 Code: 12032-1 Heart Rate 1: 76 bpm Height: 5'6" Respiratory Rate: 28 bpm Temperature: 37 .0 (C) / 98.6 (F) Weight: 216 lbs 03/30/2015 Blood Pressure 1: 132/86 Code: 8480-6 BMI: 35.2 Code: 10774-2 Heart Rate 1: 84 bpm Height: 5'6" Respiratory Rate: 24 bpm Temperature: 36 .7 (C) / 98.0 (F) Weight: 215 lbs 02/03/2015 Blood Pressure 1: 122/74 Code: 8480-6 BMI: 35.7 Code: 79560-4 Heart Rate 1: 84 bpm Height: 5'6" Respiratory Rate: 20 bpm Temperature: 36 .9 (C) / 98.5 (F) Weight: 218 lbs 12/29/2014 Blood Pressure 1: 132/80 Code: 8480-6 BMI: 35.1 Code: 40117-5 Heart Rate 1: 80 bpm Height: 5'6" Respiratory Rate: 20 bpm Temperature: 36 .6 (C) / 97.8 (F) Weight: 214 lbs 09/02/2014 Blood Pressure 1: 128/92 Code: 8480-6 BMI: 34.7 Code: 60211-9 Heart Rate 1: 84 bpm Height: 5'6" Respiratory Rate: 26 bpm Temperature: 36 .8 (C) / 98.2 (F) Weight: 212 lbs 08/25/2014 Blood Pressure 1: 124/80 Code: 8480-6 BMI: 34.7 Code: 93211-4 Heart Rate 1: 78 bpm Height: 5'6" Respiratory Rate: 22 bpm SpO2: 97% Tempera ture: 36.6 (C) / 97.8 (F) Weight: 212 lbs 04/01/2014 Blood Pressure 1: 142/84 Code: 8480-6 BMI: 34.4 Code: 40048-6 Heart Rate 1: 74 bpm Height: 5'5" Respiratory Rate: 20 bpm Temperature: 36 .4 (C) / 97.6 (F) Weight: 207 lbs 03/16/2014 Blood Pressure 1: 142/90 Code: 8480-6 BMI: 34.6 Code: 88167-2 Heart Rate 1: 76 bpm Height: 5'5" Respiratory Rate: 24 bpm Temperature: 36 .5 (C) / 97.7 (F) Weight: 208 lbs 03/09/2014 Blood Pressure 1: 116/70 Code: 8480-6 BMI: 35.3 Code: 32476-2 Heart Rate 1: 72 bpm Height: 5'5" [...] 1: 128/86 Code: 8480-6 BMI: 34.3 Code: 24125-1 Heart Rate 1: 84 bpm Height: 5'5" Respiratory Rate: 20 bpm Temperature: 36 .7 (C) / 98.0 (F) Weight: 206 lbs 12/23/2013 Blood Pressure 1: 122/70 Code: 8480-6 BMI: 34.3 Code: 88326-7 Heart Rate 1: 68 bpm Height: 5'5" Respiratory Rate: 20 bpm Temperature: 36 .8 (C) / 98.2 (F) Weight: 206 lbs 10/05/2013 Blood Pressure 1: 118/76 Code: 8480-6 BMI: 34.1 Code: 84734-5 Heart Rate 1: 68 bpm Height: 5'5" Respiratory Rate: 20 bpm SpO2: 98% Tempera ture: 36.6 (C) / 97.9 (F) Weight: 205 lbs 08/04/2013 Blood Pressure 1: 126/82 Code: 8480-6 BMI: 33.3 Code: 37628-9 Heart Rate 1: 76 bpm Height: 5'5" Respiratory Rate: 20 bpm Temperature: 36 .8 (C) / 98.2 (F) Weight: 200 lbs 07/03/2013 Blood Pressure 1: 124/82 Code: 8480-6 BMI: 33.3 Code: 98483-5 Heart Rate 1: 72 bpm Height: 5'5" Respiratory Rate: 22 bpm Temperature: 36 .1 (C) / 97.0 (F) Weight: 200 lbs 05/27/2013 Blood Pressure 1: 126/82 Code: 8480-6 Heart Rate 1: 74 bpm Respiratory Rate: 20 bpm Temperature: 36.0 (C) / 96.8 (F) Weight: 199 lbs 04/06/2013 Blood Pressure 1: 118/80 Code: 8480-6 BMI: 35.2 Code: 09883-2 Heart Rate 1: 80 bpm Height: 5'4" Respiratory Rate: 20 bpm Temperature: 37 .4 (C) / 99.3 (F) Weight: 205 lbs 11/10/2012 Blood Pressure 1: 128/82 Code: 8480-6 Heart Rate 1: 84 bpm Respiratory Rate: 20 bpm Temperature: 36.7 (C) / 98.0 (F) Weight: 199 lbs 09/02/2012 Blood Pressure 1: 116/82 Code: 8480-6 BMI: 34.2 Code: 09184-3 Heart Rate 1: 88 bpm Height: 5'4" Respiratory Rate: 22 bpm Temperature: 36 .6 (C) / 97.8 (F) Weight: 199 lbs 08/04/2012 Blood Pressure 1: 128/74 Code: 8480-6 BMI: 34.0 Code: 06839-3 Heart Rate 1: 92 bpm Height: 5'4" Respiratory Rate: 20 bpm Temperature: 36 .4 (C) / 97.5 (F) Weight: 198 lbs 07/21/2012 Blood Pressure 1: 124/86 Code: 8480-6 Heart Rate 1: 116 bpm Respiratory Rate: 24 bpm Temperature: 36.8 (C) / 98.2 (F) 07/02/2012 Blood Pressure 1: 116/88 Code: 8480-6 BMI: 33.6 Code: 18210-8 Heart Rate 1: 76 bpm Height: 5'4" Respiratory Rate: 20 bpm Temperature: 36 .8 (C) / 98.3 (F) Weight: 196 lbs 06/24/2012 Blood Pressure 1: 124/80 Code: 8480-6 BMI: 34.3 Code: 22828-0 Heart Rate 1: 72 bpm Height: 5'4" SpO2: 96% Temperature: 36.3 (C) / 97.3 (F) Weight: 200 lbs 05/20/2012 Blood Pressure 1: 116/88 Code: 8480-6 BMI: 33.8 Code: 02932-5 Heart Rate 1: 80 bpm Height: 5'4" Respiratory Rate: 22 bpm Temperature: 36 .9 (C) / 98.4 (F) Weight: 197 lbs 05/08/2012 Blood Pressure 1: 128/86 Code: 8480-6 BMI: 33.8 Code: 79797-0 Heart Rate 1: 76 bpm Height: 5'4" Respiratory Rate: 26 bpm SpO2: 95% Tempera ture: 36.1 (C) / 97.0 (F) Weight: 197 lbs 04/22/2012 Blood Pressure 1: 106/64 Code: 8480-6 BMI: 33.8 Code: 76955-2 Heart Rate 1: 70 bpm Height: 5'4" Temperature: 36.1 (C) / 97.0 (F) Weight: 197 lbs 02/13/2012 Blood Pressure 1: 126/82 Code: 8480-6 BMI: 34.7 Code: 04353-0 Heart Rate 1: 64 bpm Height: 5'4" Respiratory Rate: 20 bpm Temperature: 36 .6 (C) / 97.8 (F) Weight: 202 lbs 01/28/2012 Blood Pressure 1: 116/80 Code: 8480-6 BMI: 34.7 Code: 61692-1 Heart Rate 1: 76 bpm Height: 5'4" Respiratory Rate: 20 bpm Temperature: 36 .8 (C) / 98.3 (F) Weight: 202 lbs 12/26/2011 Blood Pressure 1: 132/82 Code: 8480-6 BMI: 36.0 Code: 97295-0 Heart Rate 1: 68 bpm Height: 5'4" Respiratory Rate: 22 bpm Temperature: 36 .7 (C) / 98.0 (F) Weight: 210 lbs 11/14/2011 Blood Pressure 1: 124/80 Code: 8480-6 BMI: 36.4 Code: 01056-6 Heart Rate 1: 76 bpm Height: 5'4" Respiratory Rate: 20 bpm Temperature: 36 .8 (C) / 98.2 (F) Weight: 212 lbs 09/12/2011 Blood Pressure 1: 108/74 Code: 8480-6 BMI: 37.1 Code: 31052-3 Heart Rate 1: 72 bpm Height: 5'4" Respiratory Rate: 20 bpm Temperature: 37 .0 (C) / 98.6 (F) Weight: 216 lbs 08/15/2011 Blood Pressure 1: 122/80 Code: 8480-6 BMI: 36.9 Code: 70185-3 Heart Rate 1: 76 bpm Height: 5'4" Respiratory Rate: 20 bpm Temperature: 36 .2 (C) / 97.1 (F) Weight: 215 lbs 08/09/2011 Blood Pressure 1: 112/78 Code: 8480-6 BMI: 36.9 Code: 06931-6 Heart Rate 1: 68 bpm Height: 5'4" Respiratory Rate: 20 bpm Temperature: 36 .7 (C) / 98.0 (F) Weight: 215 lbs 07/03/2011 Blood Pressure 1: 140/94 Code: 8480-6 BMI: 36.2 Code: 44987-7 Heart Rate 1: 68 bpm Height: 5'4" Temperature: 36.0 (C) / 96.8 (F) Weight: 211 lbs 06/04/2011 Blood Pressure 1: 124/70 Code: 8480-6 BMI: 36.7 Code: 75799-4 Heart Rate 1: 68 bpm Height: 5'4" Respiratory Rate: 20 bpm Temperature: 36 .6 (C) / 97.9 (F) Weight: 214 lbs 05/03/2011 Blood Pressure 1: 130/76 Code: 8480-6 BMI: 36.4 Code: 52333-6 Heart Rate 1: 74 bpm Height: 5'5" Temperature: 36.2 (C) / 97.2 (F) Weight: 219 lbs 04/05/2011 Blood Pressure 1: 124/86 Code: 8480-6 BMI: 35.9 Code: 27339-2 Heart Rate 1: 76 bpm Height: 5'6" Respiratory Rate: 22 bpm Temperature: 36 .3 (C) / 97.3 (F) Weight: 219 lbs 03/08/2011 Blood Pressure 1: 112/78 Code: 8480-6 BMI: 35.1 Code: 32305-2 Heart Rate 1: 80 bpm Height: 5'6" Respiratory Rate: 26 bpm Temperature: 36 .9 (C) / 98.4 (F) Weight: 214 lbs 01/24/2011 Blood Pressure 1: 110/82 Code: 8480-6 BMI: 35.6 Code: 65237-6 Heart Rate 1: 80 bpm Height: 5'6" Temperature: 36.1 (C) / 97.0 (F) Weight: 217 lbs 01/02/2011 Blood Pressure 1: 106/72 Code: 8480-6 BMI: 35.6 Code: 07866-5 Heart Rate 1: 76 bpm Height: 5'6" [...] 1: 120/74 Code: 8480-6 BMI: 35.9 Code: 83264-9 Heart Rate 1: 72 bpm Height: 5'5" Temperature: 36.3 (C) / 97.4 (F) Weight: 216 lbs 09/19/2010 Blood Pressure 1: 124/80 Code: 8480-6 BMI: 35.4 Code: 63662-7 Heart Rate 1: 76 bpm Height: 5'5" [...] 1: 122/78 Code: 8480-6 BMI: 37.4 Code: 84408-7 Heart Rate 1: 84 bpm Height: 5'5" Weight: 225 lbs Functional Status No Functional Status data Reason For Visit Reason For Visit Effective Dates Notes back pain 08/04/2019 follow up 07/06/2019 Hospital [...] follow up 10/26/2015 ER visit from at [facility] for COPD Exacerbation follow up 10/05/2015 ER Visit gait abnormality 09/15/2015 Patient requesting kelly pineda paperwork to be filled out disturbances of thinking 08/24/2015 follow up 07/05/2015 4wk fwup follow up 06/06/2015 [facility] cough 05/23/2015 follow up 05/05/2015 dyspnea 03/30/2015 [facility] needs new orde r for O2 abdominal pain 02/03/2015 cyst 12/29/2014 vs abscess follow up 09/02/2014 [facility] headache 08/25/2014 facial drooping follow up 04/01/2014 [...] up 10/18/[address] Marcela sagastume w [place], having increased allergy symptoms. Would like steroid [...] month f/u follow up 12/07/2009 from [facility], done with PT--finished about 2wks ago follow up 11/08/2009 2wk fwup follow up 10/24/2009 hosp fwup ~generic 07/25/2009 bilateral earlobe re dness/swelling, pain radiating into neck, refill Demerol ~generic 05/26/2009 FALLING A LOT, SAVEL LA NOT HELPING FIBROMYALGIA PAIN, LT HAND LACERATION-FELL INTO NAIL 05/25/09 Encounters Encounter Performer Location Codes Date () OFFICE/OUTPATIENT VISIT EST Diagnosis: Pelvic pain in female[ICD10: R10.2] Diagnosis: Left leg swelling[ICD10: M79.89] Diagnosis: Dyspnea[ICD10: R06.00] Diagnosis: Constipation[ICD10: K59.00] Pattie Floresjuan BRUNSON S. Emma WICK [facility] CPT-4: 01251 08/04/2019 ([id number]) OFFICE/OUTPATIENT VISIT EST Diagnosis: Inspiratory stridor[ICD10: R06.1] Diagnosis: Diarrhea[ICD10: R19.7] Belia Reid [facility] CPT-4: 9921 3 07/06/2019 ([id number]) OFFICE/OUTPATIENT VISIT EST Diagnosis: Left leg swelling[ICD10: M79.89] Diagnosis: Dyspnea[ICD10: R06.00] Belia Reid [facility] CPT-4: 9921 3 06/24/2019 ([id number]) OFFICE/OUTPATIENT VISIT EST Diagnosis: Acute bronchitis[ICD10: J20.9] Diagnosis: Colitis[ICD10: K52.9] [facility] [place] CPT-4: 66814 06/16/2019 ([id number]) OFFICE/OUTPATIENT VISIT EST Diagnosis: Diarrhea[ICD10: R19.7] Diagnosis: Abdominal bloating[ICD10: R14.0] Belia Reid [facility] CPT- 4: 17120 06/08/2019 ([id number]) OFFICE/OUTPATIENT VISIT EST Diagnosis: Acute febrile illness[ICD10: R50.9] Diagnosis: Colitis[ICD10: K52.9] Belia Reid [facility] CPT-4: 33087 05/26/2019 ([id number]) OFFICE/OUTPATIENT VISIT EST Diagnosis: Chronic obstructive pulmonary disease, unspecified[ICD10: J44.9] Diagnosis: Pulmonary fibrosis[ICD10: J84.10] Diagnosis: Intermittent stridor[ICD10: R06.1] Diagnosis: Muscle weakness[ICD10: M62.81] Belia REID DO [facility] CPT-4: 36392 05/13/2019 ([id number]) OFFICE/OUTPATIENT VISIT EST Diagnosis: Stridor[ICD10: R06.1] Diagnosis: COUGH[ICD10: R05] Belia REID DO [facility] CPT-4: 09605 05/06/2019 ([id number]) OFFICE/OUTPATIENT VISIT EST Diagnosis: Stridor[ICD10: R06.1] Diagnosis: Muscle, jerky movements (uncontrolled)[ICD10: G25.5] Belia REID [facility] CPT-4: 01364 04/29/2019 ([id number]) OFFICE/OUTPATIENT VISIT EST Diagnosis: Upper respiratory infection[ICD10: J06.9] Diagnosis: Flank pain[ICD10: R10.9] Diagnosis: Weight gain[ICD10: R63.5] Pattie AMBRIZ [facility] CPT-4: 78852 04/16/2019 ([id number]) OFFICE/OUTPATIENT VISIT EST Diagnosis: Generalized pruritus[ICD10: L29.9] Belia REID [facility] CPT-4: 95429 04/08/2019 ([id number]) OFFICE/OUTPATIENT VISIT EST Diagnosis: Acute bursitis of left shoulder[ICD10: M75.52] Diagnosis: Cervicalgia[ICD10: M54.2] Diagnosis: Chest wall pain[ICD10: R07.89] Belia REID [facility] CPT-4: 28085 01/22/2019 ([id number]) OFFICE/OUTPATIENT VISIT EST Diagnosis: Abdominal pain[ICD10: R10.9] Diagnosis: Pyelonephritis[ICD10: N12] Pattie GORDILLO ALBERTO [facility] CPT-4: 21536 01/07/2019 ([id number]) OFFICE/OUTPATIENT VISIT EST Diagnosis: Low back pain[ICD10: M54.5] Diagnosis: Left lumbar radiculopathy[ICD10: M54.16] Diagnosis: Left flank pain[ICD10: R10.9] Diagnosis: Left lower quadrant pain[ICD10: R10.32] Diagnosis: FLU VACCINE[ICD10: Z23] Belia FREDERICK DO [facility] CPT-4: 99654 12/24/2018 ([id number]) OFFICE/OUTPATIENT VISIT EST Diagnosis: Migraine, unspecified, not intractable, without status migrainosus[ICD10: G43.909] Diagnosis: Fibromyalgia[ICD10: M79.7] Belia DOMINGUEZ [facility] CPT-4: 99293 11/20/2018 ([id number]) OFFICE/OUTPATIENT VISIT EST Diagnosis: Migraine, unspecified, intractable, without status migrainosus[ICD10: G43.919] Diagnosis: Acute sinusitis, unspecified[ICD10: J01.90] Pattie REID DO [facility] CPT-4: 47137 11/04/2018 ([id number]) OFFICE/OUTPATIENT VISIT EST Diagnosis: Pain in left wrist[ICD10: M25.532] Diagnosis: Other dorsalgia[ICD10: M54.89] Pattie REID DO [facility] CPT-4: 39167 09/08/2018 ([id number]) OFFICE/OUTPATIENT VISIT EST Diagnosis: Acute stress reaction[ICD10: F43.0] Diagnosis: Pruritus, unspecified[ICD10: L29.9] 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, 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] Belia REID [facility] CPT-4: 68740 08/20/2018 ([id number]) OFFICE/OUTPATIENT VISIT EST Diagnosis: Hypotension due to drugs[ICD10: I95.2] Diagnosis: Paroxysmal atrial fibrillation[ICD10: I48.0] Diagnosis: Localized edema[ICD10: R60.0] Belia REID DO [facility] CPT-4: 30932 06/19/2018 ([id number]) OFFICE/OUTPATIENT VISIT EST Diagnosis: Generalized hyperhidrosis[ICD10: R61] Diagnosis: Essential (primary) hypertension[ICD10: I10] Diagnosis: Supraventricular tachycardia[ICD10: I47.1] Belia REID DO [facility] CPT-4: 04577 06/09/2018 ([id number]) OFFICE/OUTPATIENT VISIT EST Diagnosis: Stridor[ICD10: R06.1] Diagnosis: Dependence on supplemental oxygen[ICD10: Z99.81] Diagnosis: Weakness[ICD10: R53.1] Diagnosis: Supraventricular tachycardia[ICD10: I47.1] Belia REID DO [facility] CPT-4: 68491 05/21/2018 ([id number]) OFFICE/OUTPATIENT VISIT EST Diagnosis: Cervical disc disorder with radiculopathy, unspecified cervical region[ICD10: M50.10] Belia REID [facility] CPT-4: 43748 04/16/2018 ([id number]) OFFICE/OUTPATIENT VISIT EST Diagnosis: Migraine, unspecified, intractable, without status migrainosus[ICD10: G43.919] Diagnosis: Fibromyalgia[ICD10: M79.7] Pattie DOMINGUEZ [facility] CPT-4: 83033 04/01/2018 ([id number]) NURSE/OUTPATIENT VISIT EST Diagnosis: Hematuria, unspecified[ICD10: R31.9] Diagnosis: Dysuria[ICD10: R30.0] Belia REID [facility] CPT-4: 95956 03/17/2018 ([id number]) OFFICE/OUTPATIENT VISIT EST Diagnosis: Erythema intertrigo[ICD10: L30.4] Diagnosis: Chronic obstructive pulmonary disease with (acute) exacerbation[ICD10: J44.1] Diagnosis: Type 2 diabetes mellitus with hyperglycemia[ICD10: E11.65] Belia REID [facility] CPT-4: 60546 03/06/2018 ([id number]) OFFICE/OUTPATIENT VISIT EST Diagnosis: Cervicalgia[ICD10: M54.2] Pattie AMBRIZ [facility] CPT-4: 97465 02/05/2018 ([id number]) OFFICE/OUTPATIENT VISIT EST Diagnosis: Candidiasis of skin and nail[ICD10: B37.2] Diagnosis: Cervicalgia[ICD10: M54.2] Pattie AMBRIZ [facility] CPT-4: 33370 01/20/2018 ([id number]) OFFICE/OUTPATIENT VISIT EST Diagnosis: Pain in thoracic spine[ICD10: M54.6] Diagnosis: Radiculopathy, thoracic region[ICD10: M54.14] [facility] 94914 12/25/2017 ([id number]) OFFICE/OUTPATIENT VISIT EST Diagnosis: Pain in thoracic spine[ICD10: M54.6] Diagnosis: Other muscle spasm[ICD10: M62.838] Diagnosis: FLU VACCINE[ICD10: Z23] Diagnosis: PNEUMOCOCCAL VACCINE[ICD10: Z23] [facility] 30502 12/17/2017 ([id number]) OFFICE/OUTPATIENT VISIT EST Diagnosis: Chronic obstructive pulmonary disease with (acute) exacerbation[ICD10: J44.1] Belia REID [facility] CPT- 4: 00853 10/30/2017 ([id number]) OFFICE/OUTPATIENT VISIT EST Diagnosis: Chronic obstructive pulmonary disease with acute lower respiratory infection[ICD10: J44.0] Diagnosis: Mild intermittent asthma with (acute) exacerbation[ICD10: J45.21] Belia REID [facility] CPT-4: 72301 10/23/2017 ([id number]) NURSE/OUTPATIENT VISIT EST Diagnosis: Migraine, unspecified, not intractable, without status migrainosus[ICD10: G43.909] Belia REID [facility] CPT - 4: 17425 08/26/2017 ([id number]) OFFICE/OUTPATIENT VISIT EST Diagnosis: Urinary tract infection, site not specified[ICD10: N39.0] Diagnosis: Encounter for screening for osteoporosis[ICD10: Z13.820] Diagnosis: Encounter for screening mammogram for malignant neoplasm of breast[ICD10: Z12.31] Diagnosis: Acute bronchitis, unspecified[ICD10: J20.9] Pattie REID DO [facility] CPT-4: 56816 07/19/2017 ([id number]) OFFICE/OUTPATIENT VISIT EST Diagnosis: Rash and other nonspecific skin eruption[ICD10: R21] Pattie REID DO [facility] CPT-4: 25728 05/29/2017 ([id number]) OFFICE/OUTPATIENT VISIT EST Diagnosis: Diarrhea, unspecified[ICD10: R19.7] Diagnosis: Tinea corporis[ICD10: B35.4] Diagnosis: Tinea cruris[ICD10: B35.6] Diagnosis: Migraine, unspecified, not intractable, without status migrainosus[ICD10: G43.909] Belia REID DO [facility] CPT - 4: 99210 05/07/2017 ([id number]) OFFICE/OUTPATIENT VISIT EST Diagnosis: Stridor[ICD10: R06.1] Diagnosis: Chronic obstructive pulmonary disease with (acute) exacerbation[ICD10: J44.1] Belia REID [facility] CPT- 4: 43702 03/18/2017 ([id number]) OFFICE/OUTPATIENT VISIT EST Diagnosis: Type 2 diabetes mellitus with hyperglycemia[ICD10: E11.65] Belia REID DO [facility] CPT-4: 86064 02/27/2017 OFFICE/OUTPATIENT VISIT EST Diagnosis: Type 2 diabetes mellitus with hyperglycemia[ICD10: E11.65] Pattie REID DO [facility] CPT-4: 13403 02/22/2017 ([id number]) OFFICE/OUTPATIENT VISIT EST Diagnosis: Urinary tract infection, site not specified[ICD10: N39.0] Diagnosis: Pneumonia, unspecified organism[ICD10: J18.9] Diagnosis: Type 2 diabetes mellitus with hyperglycemia[ICD10: E11.65] Belia REID [facility] CPT-4: 33602 01/23/2017 ([id number]) OFFICE/OUTPATIENT VISIT EST Diagnosis: Type 2 diabetes mellitus with hyperglycemia[ICD10: E11.65] Diagnosis: Localized edema[ICD10: R60.0] Diagnosis: PNEUMOCOCCAL VACCINE[ICD10: Z23] Diagnosis: FLU VACCINE[ICD10: Z23] Belia FREDERICK [facility] CPT-4: 16518 12/20/2016 OFFICE/OUTPATIENT VISIT EST Diagnosis: Pain in thoracic spine[ICD10: M54.6] Diagnosis: Low back pain[ICD10: M54.5] Diagnosis: Cervicalgia[ICD10: M54.2] Diagnosis: Cough[ICD10: R05] Celeste Ferreira BELIA REID [facility] CPT-4: 29618 10/08/2016 ([id number]) OFFICE/OUTPATIENT VISIT EST Diagnosis: Primary insomnia[ICD10: F51.01] Diagnosis: Migraine, unspecified, not intractable, without status migrainosus[ICD10: G43.909] Diagnosis: Type 2 diabetes mellitus with hyperglycemia[ICD10: E11.65] Belia REID [facility] CPT-4: 77612 09/19/2016 ([id number]) OFFICE/OUTPATIENT VISIT EST Diagnosis: Migraine, unspecified, not intractable, without status migrainosus[ICD10: G43.909] Diagnosis: Generalized abdominal pain[ICD10: R10.84] Diagnosis: Cough[ICD10: R05] Belia REID DO [facility] CPT-4: 54477 08/20/2016 ([id number]) OFFICE/OUTPATIENT VISIT EST Diagnosis: Chronic obstructive pulmonary disease, unspecified[ICD10: J44.9] Diagnosis: Stridor[ICD10: R06.1] Belia REID [facility] CPT-4: 50671 06/19/2016 ([id number]) OFFICE/OUTPATIENT VISIT EST Diagnosis: Chronic obstructive pulmonary disease, unspecified[ICD10: J44.9] Diagnosis: Personal history of urinary (tract) infections[ICD10: Z87.440] Belia REID DO [facility] CPT-4: 35051 06/04/2016 ([id number]) OFFICE/OUTPATIENT VISIT EST Diagnosis: Stridor[ICD10: R06.1] Diagnosis: Chronic obstructive pulmonary disease with acute lower respiratory infection[ICD10: J44.0] Diagnosis: Other specified diseases of intestine[ICD10: K63.89] Diagnosis: Cystitis, unspecified without hematuria[ICD10: N30.90] Belia REID [facility] CPT-4: 50108 05/02/2016 ([id number]) OFFICE/OUTPATIENT VISIT EST Diagnosis: Fibromyalgia[ICD10: M79.7] Diagnosis: Urinary tract infection, site not specified[ICD10: N39.0] Belia REID DO [facility] CPT-4: 19119 04/03/2016 ([id number]) OFFICE/OUTPATIENT VISIT EST Diagnosis: Unspecified asthma, uncomplicated[ICD10: J45.909] Diagnosis: Cough[ICD10: R05] Lidia REID [facility] T-4: 27203 02/29/2016 ([id number]) OFFICE/OUTPATIENT VISIT EST Diagnosis: Migraine, unspecified, intractable, without status migrainosus[ICD10: G43.919] Diagnosis: Urinary tract infection, site not specified[ICD10: N39.0] Belia REID [facility] CPT-4: 85053 02/02/2016 ([id number]) OFFICE/OUTPATIENT VISIT EST Diagnosis: Urinary tract infection, site not specified[ICD10: N39.0] Diagnosis: Unspecified abdominal pain[ICD10: R10.9] Diagnosis: Pain in thoracic spine[ICD10: M54.6] Diagnosis: Type 2 diabetes mellitus with diabetic neuropathic arthropathy[ICD10: E11.610] Belia REID [facility] CPT-4: 98292 12/05/2015 ([id number]) OFFICE/OUTPATIENT VISIT EST Diagnosis: Chronic obstructive pulmonary disease with (acute) exacerbation[ICD10: J44.1] Diagnosis: Migraine, unspecified, not intractable, without status migrainosus[ICD10: G43.909] Lidia Jaiden CORNELLLINE Yuridia REID [facility] CPT -4: 45834 10/26/2015 ([id number]) OFFICE/OUTPATIENT VISIT EST Diagnosis: Hematuria, unspecified[ICD10: R31.9] Diagnosis: Urinary tract infection, site not specified[ICD10: N39.0] Lidia HSUQUELINE Yuridia REID [facility] CPT-4: 49720 10/05/2015 OFFICE/OUTPATIENT VISIT EST Diagnosis: Chronic obstructive pulmonary disease, unspecified[ICD10: J44.9] Diagnosis: Muscle weakness (generalized)[ICD10: M62.81] Diagnosis: Polyneuropathy, unspecified[ICD10: G62.9] Diagnosis: Other intervertebral disc degeneration, 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] Diagnosis: Fibromyalgia[ICD10: M79.7] Belia CORNELLLINE Yuridia DOMINGUEZ [facility] CPT-4: 63009 09/15/2015 ([id number]) OFFICE/OUTPATIENT VISIT EST Diagnosis: Disorientation, unspecified[ICD10: R41.0] Diagnosis: Headache[ICD10: R51] Diagnosis: Paresthesia of skin[ICD10: R20.2] Lidia CORNELLHERNANDEZ Paredes Yuridia REID [facility] CPT-4: 13779 08/24/2015 ([id number]) OFFICE/OUTPATIENT VISIT EST Diagnosis: Type 2 diabetes mellitus with hyperglycemia[ICD10: E11.65] Diagnosis: Chronic obstructive pulmonary disease with acute lower respiratory infection[ICD10: J44.0] Belia REID [facility] CPT-4: 07340 07/05/2015 ([id number]) OFFICE/OUTPATIENT VISIT EST Diagnosis: Mild intermittent asthma with (acute) exacerbation[ICD10: J45.21] Diagnosis: Chronic obstructive pulmonary disease, unspecified[ICD10: J44.9] Belia Zacharyisabellaannie CORNELLBELIA BushraMayda ANUSHKA [facility] CPT-4: 73354 06/06/2015 ([id number]) OFFICE/OUTPATIENT VISIT EST Diagnosis: Chronic obstructive pulmonary disease with (acute) exacerbation[ICD10: J44.1] Lidia HSUQUELINE BushraMayda ANUSHKA [facility] CPT- 4: 47855 05/23/2015 ([id number]) OFFICE/OUTPATIENT VISIT EST Diagnosis: Type 2 diabetes mellitus with hyperglycemia[ICD10: E11.65] Diagnosis: Functional dyspepsia[ICD10: K30] Belia Anushka CORNELLLINE Yuridia REID [facility] CPT-4: 25998 05/05/2015 ([id number]) OFFICE/OUTPATIENT VISIT EST Diagnosis: Type 2 diabetes mellitus with hyperglycemia[ICD10: E11.65] Diagnosis: Glycosuria[ICD10: R81] Diagnosis: Urinary tract infection, site not specified[ICD10: N39.0] Belia REID [facility] CPT-4: 88540 03/30/2015 ([id number]) OFFICE/OUTPATIENT VISIT EST Diagnosis: Generalized abdominal pain[ICD10: R10.84] Diagnosis: Diarrhea, unspecified[ICD10: R19.7] Diagnosis: Urinary tract infection, site not specified[ICD10: N39.0] Diagnosis: Gastro-esophageal reflux disease without esophagitis[ICD10: K21.9] [facility] 05747 02/03/2015 ([id number]) OFFICE/OUTPATIENT VISIT EST Diagnosis: Other specified noninflammatory disorders of vagina[ICD10: N89.8] Diagnosis: Follicular disorder, unspecified[ICD10: L73.9] Diagnosis: Functional dyspepsia[ICD10: K30] Diagnosis: FLU VACCINE[ICD10: Z23] Belia SMITH [facility] CPT-4: 90884 12/29/2014 ([id number]) OFFICE/OUTPATIENT VISIT EST 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] Diagnosis: RESTLESS LEGS SYNDROME[ICD9: 333.94] Diagnosis: MIGRAINE NOS/NOT INTRCBL[ICD9: 346.90] Beliahanna Humphriesisabellaannie HSUFlorencio COKER Yuridia [facility]: 74649 09/02/2014 ([id number]) OFFICE/OUTPATIENT VISIT EST Diagnosis: Cervical radiculopathy[ICD9: 723.4] Diagnosis: Cervicalgia[ICD9: 723.1] Diagnosis: Degenerative disc disease, cervical[ICD9: 722.4] 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I[ICD9: 250.00] [facility]: 22868 04/01/2014 OFFICE/OUTPATIENT VISIT EST Diagnosis: Reactive airway disease[ICD9: 493.90] Belia Zacharyisabellaannie MINAL CALVO Yuridia [facility]: 31701 03/16/2014 ([id number]) OFFICE/OUTPATIENT VISIT EST Diagnosis: BRONCHITIS, ACUTE[ICD9: 466.0] Diagnosis: Reactive airway disease[ICD9: 493.90] Belia REID DO [facility] CPT-4: 56333 03/09/2014 OFFICE/OUTPATIENT VISIT EST Diagnosis: BRONCHITIS, ACUTE[ICD9: 466.0] Diagnosis: WHEEZING[ICD9: 786.07] Huong Peguero [facility] CPT-4: 76233 03/03/2014 OFFICE/OUTPATIENT VISIT EST Diagnosis: BRONCHITIS, ACUTE[ICD9: 466.0] Diagnosis: WHEEZING[ICD9: 786.07] Huong Peguero [facility] CPT-4: 05926 03/01/2014 ([id number]) OFFICE/OUTPATIENT VISIT EST Diagnosis: GERD[ICD9: 530.81] Diagnosis: ARTHRALGIA-MULTIPLE SITES[ICD9: 719.49] Diagnosis: LUMB/LUMBOSAC DISC DEGEN[ICD9: 722.52] Diagnosis: - I - FIBROMYALGIA[ICD9: 729.1] Belia REID [facility] CPT-4: 33123 02/09/2014 ([id number]) OFFICE/OUTPATIENT VISIT EST Diagnosis: Peptic ulcer disease[ICD9: 533.90] Diagnosis: RESTLESS LEGS SYNDROME[ICD9: 333.94] Diagnosis: Neuropathy[ICD9: 355.9] Belia FREDERICK [facility] CPT-4: 36394 12/23/2013 ([id number]) OFFICE/OUTPATIENT VISIT EST Diagnosis: URINARY TRACT INFECTION[ICD9: 599.0] Belia REID [facility] CPT-4: 75353 10/30/2013 ([id number]) OFFICE/OUTPATIENT VISIT EST Diagnosis: Flank pain[ICD9: 789.00] Belia CORNELLLINE Yuridia POOLE [facility] CPT-4: 71192 10/21/2013 ([id number]) OFFICE/OUTPATIENT VISIT EST Diagnosis: INFLAMED SEBORR KERATOS[ICD9: 702.11] Diagnosis: Brachioradial pruritus[ICD9: 698.9] Diagnosis: ASTHMA NOS[ICD9: 493.90] Belia Zacharynilson BRUNSON BushraMayda KIESHA POOLE [facility] CPT-4: 20736 10/05/2013 ([id number]) OFFICE/OUTPATIENT VISIT EST Diagnosis: HYPERTENSION[ICD9: 401.9] Diagnosis: - I - FIBROMYALGIA[ICD9: 729.1] Diagnosis: DIZZINESS/VERTIGO[ICD9: 780.4] Diagnosis: MIGRAINE NOS/NOT INTRCBL[ICD9: 346.90] Diagnosis: Diabetic peripheral neuropathy[ICD9: 250.60] Diagnosis: Flank pain[ICD9: 789.00] Belia BRUNSON BushraMayda KIESHA POOLE [facility] CPT-4: 04102 08/04/2013 ([id number]) OFFICE/OUTPATIENT VISIT EST Diagnosis: ALLERGIC RHINITIS[ICD9: 477.9] Belia Zacharyisabellaannie BELIA Bushra Mayda ANUSHKA RUDOLPH [facility] CPT-4: 44808 07/13/2013 OFFICE/OUTPATIENT VISIT EST Diagnosis: URINARY TRACT INFECTION[ICD9: 599.0] Huong ARNOLD SMayda ANUSHKA [facility] CPT-4: 19743 07/03/2013 OFFICE/OUTPATIENT VISIT EST Diagnosis: HYPERTENSION[ICD9: 401.9] Diagnosis: URINARY TRACT INFECTION[ICD9: 599.0] Diagnosis: BACKACHE[ICD9: 724.5] Diagnosis: URINARY INCONTINENCE[ICD9: 788.30] Huong SALAZAR SMayda REID [facility] CPT-4: 87860 05/27/2013 ([id number]) OFFICE/OUTPATIENT VISIT EST Diagnosis: Flank pain[ICD9: 789.00] Belia BRUNSON BushraMayda KIESHA POOLE [facility] CPT-4: 76392 05/25/2013 ([id number]) OFFICE/OUTPATIENT VISIT EST Diagnosis: B-COMPLEX DEFIC NEC[ICD9: 266.2] Belia BRUNSON BushraMayda ANUSHKA RUDOLPH [facility] CPT-4: 97682 05/04/2013 ([id number]) OFFICE/OUTPATIENT VISIT EST Diagnosis: ALLERGIC RHINITIS[ICD9: 477.9] Diagnosis: Vitamin B12 deficiency[ICD9: 266.2] Belia THOMPSON Yuridia REID [facility] CPT-4: 75121 04/17/2013 ([id number]) OFFICE/OUTPATIENT VISIT EST 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I[ICD9: 250.00] Diagnosis: URINARY TRACT INFECTION[ICD9: 599.0] Diagnosis: DIZZINESS/VERTIGO[ICD9: 780.4] Diagnosis: DIARRHEA[ICD9: 787.91] Belia BRUNSON BushraMayda RALF Peguero [facility] CPT-4: 32039 04/06/2013 ([id number]) OFFICE/OUTPATIENT VISIT EST Diagnosis: URINARY TRACT INFECTION[ICD9: 599.0] Diagnosis: URINARY RETENTION[ICD9: 788.20] Beliahanna BRUNSON BushraMayda ANUSHKA [facility] CPT-4: 52458 11/10/2012 ([id number]) OFFICE/OUTPATIENT VISIT EST Diagnosis: TACHYCARDIA[ICD9: 785.0] Diagnosis: SYNCOPE AND COLLAPSE[ICD9: 780.2] Diagnosis: CONSCIOUSNS ALTERAT NEC[ICD9: 780.09] Belia CALVO BushraMayda ANUSHKA [facility] CPT-4: 97601 09/02/2012 OFFICE/OUTPATIENT VISIT EST Diagnosis: TACHYCARDIA[ICD9: 785.0] Diagnosis: SYNCOPE AND COLLAPSE[ICD9: 780.2] Belia Paredes BushraMayda ANUSHKA [facility] CPT-4: 44079 08/04/2012 ([id number]) OFFICE/OUTPATIENT VISIT EST Diagnosis: Loss of consciousness[ICD9: 780.09] Diagnosis: Tachycardia[ICD9: 785.0] Diagnosis: MALAISE AND FATIGUE[ICD9: 780.79] Belia Paredes BushraMayda ANUSHKA [facility] CPT-4: 24144 07/21/2012 ([id number]) OFFICE/OUTPATIENT VISIT EST Diagnosis: BRONCHITIS, ACUTE[ICD9: 466.0] Diagnosis: ASTHMA NOS[ICD9: 493.90] Belia BRUNSON BushraMayda KIESHA VIRGILIO [facility] CPT-4: 09691 07/02/2012 ([id number]) OFFICE/OUTPATIENT VISIT EST Diagnosis: CEPHALGIA[ICD9: 784.0] Belia BRUNSON BushraMayda ZACHARYANT Peguero [facility] CPT-4: 10752 06/25/2012 ([id number]) OFFICE/OUTPATIENT VISIT EST Diagnosis: GERD[ICD9: 530.81] Diagnosis: DIARRHEA[ICD9: 787.91] Diagnosis: URINARY TRACT INFECTION[ICD9: 599.0] Diagnosis: ASTHMA NOS[ICD9: 493.90] Diagnosis: ALLERGIC RHINITIS[ICD9: 477.9] Belia HSUQUELINE Bushra Mayda ANUSHKA [facility] CPT-4: 58961 06/24/2012 ([id number]) OFFICE/OUTPATIENT VISIT EST Diagnosis: MIGRAINE NOS/NOT INTRCBL[ICD9: 346.90] Diagnosis: TREMOR NEC[ICD9: 333.1] Diagnosis: CHRONIC PAIN SYNDROME[ICD9: 338.4] Belia Zacharynilson SALAZAR BushraMayda LUIS [facility] CPT-4: 60101 05/20/2012 ([id number]) OFFICE/OUTPATIENT VISIT EST Diagnosis: DIZZINESS/VERTIGO[ICD9: 780.4] Diagnosis: PALPITATIONS[ICD9: 785.1] Diagnosis: TREMOR NEC[ICD9: 333.1] Diagnosis: ANXIETY STATE NOS[ICD9: 300.00] Diagnosis: POSTTRAUMATIC STRESS DISORDER[ICD9: 309.81] Belia CORNELLLINE BushraMayda LUIS [facility] CPT-4: 54428 05/08/2012 ([id number]) OFFICE/OUTPATIENT VISIT EST Diagnosis: MIGRAINE NOS/NOT INTRCBL[ICD9: 346.90] Diagnosis: FIBROMYALGIA[ICD9: 729.1] Diagnosis: SYNCOPE AND COLLAPSE[ICD9: 780.2] Diagnosis: Diabetic peripheral neuropathy[ICD9: 250.60] Belia Humphriesisabellaannie BELIA BushraMayda LUIS [facility] CPT-4: 54736 04/22/2012 OFFICE/OUTPATIENT VISIT EST Diagnosis: ROTATOR CUFF DIS NEC[ICD9: 726.19] Diagnosis: JOINT PAIN-SHLDER[ICD9: 719.41] Diagnosis: DYSPEPSIA[ICD9: 536.8] Belia Zacharynilson BELIA BushraMayda RALF [facility] CPT-4: 55404 02/13/2012 ([id number]) OFFICE/OUTPATIENT VISIT EST Diagnosis: MIGRAINE NOS/NOT INTRCBL[ICD9: 346.90] Diagnosis: GERD[ICD9: 530.81] Diagnosis: DYSPEPSIA[ICD9: 536.8] Belia TomlinsonMayda RALF Peguero [facility] CPT-4: 02111 01/28/2012 OFFICE/OUTPATIENT VISIT EST Diagnosis: CEPHALGIA[ICD9: 784.0] Diagnosis: MIGRAINE NOS/NOT INTRCBL[ICD9: 346.90] Diagnosis: GERD[ICD9: 530.81] Diagnosis: INSOMNIA NOS[ICD9: 780.52] Belia CORNELLLINE Yuridia DOMINGUEZ [facility] CPT-4: 78875 12/26/2011 ([id number]) OFFICE/OUTPATIENT VISIT EST Diagnosis: CEPHALGIA[ICD9: 784.0] Diagnosis: MIGRAINE NOS/NOT INTRCBL[ICD9: 346.90] Diagnosis: MALAISE AND FATIGUE[ICD9: 780.79] Diagnosis: FIBROMYALGIA[ICD9: 729.1] Diagnosis: ALLERGIC RHINITIS[ICD9: 477.9] Belia Humphriesisabellaannie HSUBELIA Bushra Mayda [facility] 36257 11/14/2011 ([id number]) OFFICE/OUTPATIENT VISIT EST Diagnosis: MALAISE AND FATIGUE[ICD9: 780.79] Diagnosis: MUSCLE WEAKNESS-GENERAL[ICD9: 728.87] Diagnosis: MIGRAINE NOS/NOT INTRCBL[ICD9: 346.90] Diagnosis: JOINT PAIN-SHLDER[ICD9: 719.41] Belia CORNELLLINE BushraMayda [facility]: 01501 09/12/2011 ([id number]) OFFICE/OUTPATIENT VISIT EST Diagnosis: CONCUSSION[ICD9: 850.9] Diagnosis: Ataxia[ICD9: 781.3] Diagnosis: DIZZINESS/VERTIGO[ICD9: 780.4] Belia CORNELLLINE Bushra Mayda ANUSHKA [facility] CPT-4: 61389 08/15/2011 ([id number]) OFFICE/OUTPATIENT VISIT EST Diagnosis: THROMBOPHLEBITIS[ICD9: 451.9] Diagnosis: Subacromial bursitis[ICD9: 726.19] Diagnosis: ALLERGIC RHINITIS[ICD9: 477.9] Diagnosis: Lipoma[ICD9: 214.9] Belia HSUQUECLAYTON [facility]: 15054 08/09/2011 ([id number]) OFFICE/OUTPATIENT VISIT EST Diagnosis: THROMBOPHLEBITIS[ICD9: 451.9] Diagnosis: Arm pain[ICD9: 729.5] Diagnosis: Clostridium difficile colitis[ICD9: 008.45] Diagnosis: URINARY TRACT INFECTION[ICD9: 599.0] [facility]: 23451 07/03/2011 ([id number]) OFFICE/OUTPATIENT VISIT EST Diagnosis: ARTHRALGIA-MULTIPLE SITES[ICD9: 719.49] Diagnosis: Muscle cramp[ICD9: 729.82] Diagnosis: INSOMNIA NOS[ICD9: 780.52] [facility]: 51823 06/04/2011 OFFICE/OUTPATIENT VISIT EST Diagnosis: Headache[ICD9: 784.0] Diagnosis: Allergic rhinitis[ICD9: 477.9] [facility]: 99244 05/03/2011 OFFICE/OUTPATIENT VISIT EST Diagnosis: LUMB/LUMBOSAC DISC DEGEN[ICD9: 722.52] Diagnosis: MIGRAINE NOS/NOT INTRCBL[ICD9: 346.90] Diagnosis: CHRONIC PAIN SYNDROME[ICD9: 338.4] Diagnosis: RESTLESS LEGS SYNDROME[ICD9: 333.94] [facility]: 01155 04/05/2011 OFFICE/OUTPATIENT VISIT EST Diagnosis: MIGRAINE NOS/NOT INTRCBL[ICD9: 346.90] Diagnosis: GERD[ICD9: 530.81] Belia REID [facility] CPT-4: 08835 03/08/2011 OFFICE/OUTPATIENT VISIT EST Diagnosis: URINARY TRACT INFECTION[ICD9: 599.0] Diagnosis: Vertigo[ICD9: 780.4] Diagnosis: GERD[ICD9: 530.81] [facility]: 54853 01/24/2011 OFFICE/OUTPATIENT VISIT EST Diagnosis: Hypotension[ICD9: 458.9] Diagnosis: Syncopal episodes[ICD9: 780.2] Diagnosis: MIGRAINE NOS/NOT INTRCBL[ICD9: 346.90] Diagnosis: MALAISE AND FATIGUE[ICD9: 780.79] Belia Paredes SMayda ZACHARYNDER DO [facility] CPT-4: 57245 01/02/2011 OFFICE/OUTPATIENT VISIT EST Diagnosis: Tinea cruris[ICD9: 110.3] Diagnosis: Intertrigo[ICD9: 695.89] Diagnosis: MIGRAINE NOS/NOT INTRCBL[ICD9: 346.90] Belia GaribayLUBNA SMayda ORENDER DO [facility] CPT-4: 02411 12/07/2010 OFFICE/OUTPATIENT VISIT EST Diagnosis: PALPITATIONS[ICD9: 785.1] Diagnosis: ANXIETY STATE NOS[ICD9: 300.00] Belia BRUNSON BushraMayda ZACHARYNDER DO [facility] CPT-4: 26567 11/16/2010 OFFICE/OUTPATIENT VISIT EST Diagnosis: URINARY TRACT INFECTION[ICD9: 599.0] Diagnosis: MIGRAINE NOS/NOT INTRCBL[ICD9: 346.90] Iraida GaribayLUBNA S. ORENDER DO [facility] CPT-4: 10633 11/02/2010 OFFICE/OUTPATIENT VISIT EST Diagnosis: ALLERGIC RHINITIS[ICD9: 477.9] Diagnosis: ANXIETY STATE NOS[ICD9: 300.00] Belia BRUNSON SMayda ZACHARYNDER DO [facility] CPT-4: 65168 10/18/2010 OFFICE/OUTPATIENT VISIT EST Belia Shi ZACHARY NDER DO [facility] CPT- 4: 31853 09/19/2010 OFFICE/OUTPATIENT VISIT EST Belia Shi ORE NDER DO [facility] CPT- 4: 71135 09/06/2010 ([id number]) OFFICE/OUTPATIENT VISIT EST Belia CASILLAS [place] SMayda ORENDER DO [facility] CPT-4: 52983 08/10/2010 ([id number]) OFFICE/OUTPATIENT VISIT EST Belia CASILLAS [place] SMayda ORENDER DO [facility] CPT-4: 36148 05/11/2010 ([id number]) OFFICE/OUTPATIENT VISIT, EST [facility] CPT-4: 71739 04/06/2010 ([id number]) OFFICE/OUTPATIENT VISIT, RIOS [facility] CPT-4: 95386 02/09/2010 ([id number]) OFFICE/OUTPATIENT VISIT, RIOS HSU QUELINE [facility] CPT-4: 71009 01/05/2010 ([id number]) OFFICE/OUTPATIENT VISIT, EST Belia HSU [facility]INE [facility] CPT-4: 72130 12/07/2009 ([id number]) OFFICE/OUTPATIENT VISIT, EST Belia HSU [facility]INE [facility] CPT-4: 42871 11/08/2009 ([id number]) OFFICE/OUTPATIENT VISIT, RIOS [facility] CPT-4: 34328 10/24/2009 ([id number]) OFFICE/OUTPATIENT VISIT, RIOS [facility] CPT-4: 47301 07/25/2009 ([id number]) OFFICE/OUTPATIENT VISIT, RIOS [facility] CPT-4: 80637 05/26/2009 Plan of Care Planned Activity Notes Codes Status Date Visit Diagnosis Plan: Dyspnea Discussion: has had [...] ICD-10 : K59.00 08/04/2019 Appointment: Pattie Sotomayor [address] [place], [place] [id number] ACUTE ILLNESS 08/04/2019 Visit Diagnosis Plan: Diarrhea Discussion: Restart Col estid at once daily ICD-9 : 787.91 ICD-10 : R19.7 07/06/2019 Visit Diagnosis Plan: Inspiratory stridor Discussion: Continue oxygen via NC at 2 L Continue ativan at QID Follow Up: 4 weeks ICD-9 : 786.1 ICD-10 : R06.1 07/06/2019 Appointment: Belia Reid WPtel: [phone] [facility] TELEMEDICINE 07/06/2019 Visit Diagnosis Plan: Left leg [...] R06.00 06/24/2019 Appointment: Belia Reid WPtel: [phone] [facility] TELEMEDICINE 06/24/2019 Visit Diagnosis Plan: Acute bronchitis Discussion: Cov er with levaquin Increase SVNs with albuterol to QID Has oxygen using q HS routinely and prn To ER if oxygen levels drop or worsening respiratory symptoms ICD-9 : 466.0 ICD-10 : J20.9 06/16/2019 Visit Diagnosis Plan: Colitis Discussion: Levaquin/Fla gyl Travis Diet ICD-9 : 558.9 ICD-10 : K52.9 06/16/2019 Appointment: Belia Reid: [address] [place] [address] TELEMEDICINE 06/16/2019 Patient Education: Patel Kate [phone] [email or web address] Completed 06/16/2019 Visit Diagnosis Plan: Diarrhea Discussion: Vancomycin for 10 days and notify if not improving or worsening BLAND diet Hydrate ICD-9 : 787.91 ICD-10 : R19.7 06/08/2019 Appointment: Belia Reid WPtel: [address] [place] [address] TELEMEDICINE 06/08/2019 Visit Diagnosis Plan: Acute febrile illness Discussion : Notify if worsens ICD-9 : 780.60 ICD-10 : R50.9 05/26/2019 Visit Diagnosis Plan: Colitis Discussion: Flagyl plus cipro to cover for both colitis and UTI Notify or to ER if worsening ICD-9 : 558.9 ICD-10 : K52.9 05/26/2019 Appointment: Belia Reid WPtel: [address] [place] [address] TELEMEDICINE 05/26/2019 Appointment: Pattie Sotomayor [address] RESCHEDULED 05/18/2019 Visit Diagnosis Plan: Chronic [...] J44.9 05/13/2019 Appointment: Belia Reid WPtel: [address] [place] [address] Hospital Follow Up 05/13/2019 Visit Diagnosis Plan: COUGH Discussion: Check CT scan of chest ICD-9 : 786.2 ICD-10 : R05 05/06/2019 Visit Diagnosis Plan: Stridor Discussion: Add Trelagy 1 p daily Add Singulair May need to see new commercial administrator ICD-9 : 786.1 ICD-10 : R06.1 05/06/2019 Appointment: Belia Reid WPtel: [address] [place] [address] FOLLOW UP 05/06/2019 Patient Education: Singulair- OptimizeRX Coupon [id number] https://www.StudyEgg/sampleTorsion Mobile/resources/getResource/61/5289546m-g31m-37b4-ze Completed 05/06/2019 Appointment: Belia Reid WPtel: [address] [place] [address] US RESCHEDULED 04/30/2019 Visit Diagnosis Plan: Muscle, [...] : R06.1 04/29/2019 Appointment: Belia Reid WPtel: [address] [place] [address] Hospital Follow Up 04/29/2019 Patient Education: Valium- OptimizeRX Coupon [id number] https://www.StudyEgg/sampleTorsion Mobile/resources/getResource/61/c48089ig-437n-5h16-6w Completed 04/29/2019 Visit Diagnosis Plan: Weight gain [...] ICD-10 : R10.9 04/16/2019 Appointment: Pattie Sotomayor [address] [place] [address] ACUTE ILLNESS 04/16/2019 Patient Education: cyclobenzaprine- OptimizeRX Coudelma [id number] https://www.StudyEgg/Pcsso/resources/getResource/61/xi69x5e0-4199-3469-s5 Completed 04/16/2019 Visit Diagnosis Plan: Generalized pruritus Discussion: Hydroxyzine 25mg po TID for itching and anxiety ICD-9 : 698.9 ICD-10 : L29.9 04/08/2019 Visit Diagnosis Plan: Migraine, unspecif ied, not intractable, without status migrainosus Discussion: Increase gabapentin to 600mg po BID ICD-9 : 346.90 ICD-10 : G43.909 04/08/2019 Appointment: Belia Reid WPtel: [address] [place] [address] ACUTE ILLNESS 04/08/2019 Visit Diagnosis Plan: Cervicalgia [...] : M75.52 01/22/2019 Appointment: Belia Reid WPtel: [address] [place] [address] Hospital Follow Up 01/22/2019 Visit Diagnosis Plan: Abdominal pain Discussion: urine culture sent to assess for any infection. rocephin given in office to cover for pyelonephritis. instructed to push fluids. call office with any new or worsening symptoms. ICD-9 : 789.00 ICD-10 : R10.9 01/07/2019 Appointment: Pattie Sotomayor [address] [place], [place] [address] ACUTE ILLNESS 01/07/2019 Visit Diagnosis Plan: Low back pain Discussion: Stat C T of abdomen/pelvis now ICD-9 : 724.2 ICD-10 : M54.5 12/24/2018 Appointment: Belia Reid WPtel: [address] [place] [address] FOLLOW UP 12/24/2018 Visit Diagnosis Plan: Fibromyalgia [...] : G43.909 11/20/2018 Appointment: Belia Reid WPtel: [address] [place] [address] ACUTE ILLNESS 11/20/2018 Patient Education: baclofen- OptimizeRX Coupon [id number] https://www.Pcsso.Multiphy Networks/samplemd/resources/getResource/61/7e7349j9-zp6t-51rl-91 Completed 11/20/2018 Visit Diagnosis Plan: Migraine, unspecif ied, intractable, without status migrainosus Discussion: toradol/phenergan given in o ffice (60 mg toradol, 12.5 mg phenergan). instructed to call if no improvement or worsening. instructed to follow up with restaurant area director since headaches are occurring more frequently to make sure vision is not the cause. ICD-9 : 346.91 ICD-10 : G43.919 11/04/2018 Visit Diagnosis Plan: Acute sinusitis, unspecified Dis cussion: zithromax prescribed to cover for sinus infection due to length of symptoms and clinincal s/s. ICD-9 : 461.9 ICD-10 : J01.90 11/04/2018 Appointment: Pattie Sotomayor [address] [place], [place] [id number] ACUTE ILLNESS 11/04/2018 Appointment: Belia Reid WPtel:[phone] [address] [facility] [facility] CANCELED 09/24/2018 Visit Diagnosis Plan: Type 2 diabetes me llitus with diabetic neuropathy, unspecified Discussion: Retry gabapentin 300mg po q HS ICD-9 : 250.60 ICD-10 : E11.40 09/18/2018 Visit Diagnosis Plan: Vitamin D deficiency, unspecifie d Discussion: Increase Vitamin D3 to 10,000 u daily ICD-9 : 268.9 ICD-10 : E55.9 09/18/2018 Visit Diagnosis Plan: [facility] without abnormal findings [...] I10 09/18/2018 Appointment: Belia Reid WPtel[facility] [address] [facility] Annual Well Visit 09/18/2018 Patient Education: gabapentin- OptimizeRX Coupon [phone] https://www.Pcsso.com/samplemd/resources/getResource/61/3n78ar55-4rh1-0wuf-n6 Completed 09/18/2018 Visit Diagnosis Plan: Pain in [...] ICD-10 : M54.89 09/08/2018 Appointment: Pattie Sotomayor [address] [place], [place] [id number] ACUTE ILLNESS 09/08/2018 Patient Education: prednisone- OptimizeRX Coupon [id number] https://www.Pcsso.com/samplemd/resources/getResource/61/7k6ut65o-7596-71x7-kn Completed 09/08/2018 Visit Diagnosis Plan: Acute stress [...] ICD-10 : L29.9 08/20/2018 Appointment: Belia Reidtel: [address] [place] [address] ACUTE ILLNESS 08/20/2018 Patient Education: Lexapro- OptimizeRX Coupon [id number] Completed 08/20/2018 Patient Education: hydroxyzine HCl- OptimizeRX Coupon [id number] Completed 08/20/2018 Care Plan: MAMMOGRAM SCREENING INC : 2 6347-5 Pending 08/20/2018 Visit Diagnosis Plan: Paroxysmal atrial fibrillation D iscussion: Discuss eliquis need with cardiology at [facility] due to cost ICD-9 : 427.31 ICD-10 : I48.0 06/19/2018 Visit Diagnosis Plan: Hypotension due to drugs Discuss ion: Discussed decreasing cardizem dose due to low BP and edema but sees cardiology next week Follow Up: 1 months ICD-9 : 458.8 ICD-10 : I95.2 06/19/2018 Appointment: Belia Reid WPtel: [facility] [address] FOLLOW UP 06/19/2018 Visit Diagnosis Plan: [...] : R61 06/09/2018 Appointment: Belia Reid WPtel: [address] [place], [place] [address] FOLLOW UP 06/09/2018 Care Plan: CHEST X-RAY 2VW FRONTAL&LATL LOINC : 40700-0 Pending 05/26/2018 Visit Diagnosis Plan: Stridor Discussion: [...] : I47.1 05/21/2018 Appointment: Belia Reid WPtel: [address] [place], [place] [address] Hospital Follow Up 05/21/2018 Visit Diagnosis Plan: Cervical disc diso rder with radiculopathy, unspecified cervical region Discussion: Scheduled for surgery on 06/02 10/[address] Faulkner ICD-9 : 722.0 ICD-10 : M50.10 04/16/2018 Appointment: Belia Reid WPtel: [address] [place], [place] [address] [facility] Follow Up 04/16/2018 Visit Diagnosis Plan: Fibromyalgia [...] ICD-10 : G43.919 04/01/2018 Appointment: Pattie Sotomayor [address] [place] [address] ACUTE ILLNESS 04/01/2018 Appointment: Belia Reid WPtel: [address] [place] [address] 03/17/2018 Visit Diagnosis Plan: Erythema intertrigo Discussio: [...] : J44.1 03/06/2018 Appointment: Belia Reid WPtel: [address] [place] [address] Hospital Follow Up 03/06/2018 Visit Diagnosis Plan: Cervicalgia Discussion: spoke wi th dr. reid about patient. increased gabapentin to bid and started on celebrex bid. tramadrol rx written out to take prn. keep scheduled appt next week for myelogram. ICD-9 : 723.1 ICD-10 : M54.2 02/05/2018 Appointment: Pattie Sotomayor [address] [place] [address] ACUTE ILLNESS 02/05/2018 Care Plan: X-RAY EXAM NECK SPINE 4/5VWS cervical LOINC : 20477-7 Pending 01/21/2018 Visit Diagnosis Plan: Cervicalgia Discussion: [...] ICD-10 : B37.2 01/20/2018 Appointment: Pattie Sotomayor [address] [place] [address] ACUTE ILLNESS 01/20/2018 Visit Diagnosis Plan: Pain in thoracic spine Discussio n: Proceed with CT scan of thoracic spine Will likely need PT ICD-9 : 724.1 ICD-10 : M54.6 12/25/2017 Appointment: Belia Reid WPtel: [address] [place] [address] US FOLLOW UP 12/25/2017 Care Plan: CT THORAX W/O DYE LOINC : 473 66-0 Pending 12/25/2017 Visit Diagnosis Plan: Pain in thoracic spine Discussio n: Stretches Alternated heat/ice Topical aspercreme with lidocaine Flexeril Recheck 1 week Flu and Pneumovax given ICD-9 : 724.1 ICD-10 : M54.6 12/17/2017 Appointment: Belia Reid WPtel: [address] [place], [place] [phone] ACUTE ILLNESS 12/17/2017 Patient Education: Patient Medication [...] : J44.1 10/30/2017 Appointment: Belia Reid WPtel: [address] [place], [place] [address] FOLLOW UP 10/30/2017 Patient Education: Patient Medication Summary Completed 10/30/2017 Visit Diagnosis Plan: Chronic obstructiv e pulmonary disease with acute lower respiratory infection Discussion: Continue SVNs with albuterol q4hrs Add Trelagy 1 inhalation daily Finish steroids Increase water intake Follow Up: 1 weeks ICD-9 : 496 ICD-10 : J44.0 10/23/2017 Appointment: Belia Reid WPtel: [address] [place], [place] [phone] WORK IN 10/23/2017 Patient Education: Patient Medication Summary Completed 10/23/2017 Appointment: Belia Reid WPtel: [address] [place], [place] [phone] NO SHOW 10/16/2017 Visit Diagnosis Plan: Confusional [...] : E11.65 09/17/2017 Appointment: Belia Reid WPtel: [address] [place], [place] [phone] Annual Well Visit 09/17/2017 Patient Education: Patient Medication Summary Completed 09/17/2017 Appointment: Belia Reid WPtel: [address] [place], [place] [phone] US INJECTION 08/26/2017 Patient Education: Patient Medication Summary Completed 08/26/2017 Appointment: Belia Reidtel: [address] [place], [place] [phone] US CANCELED 07/31/2017 Visit Diagnosis Plan: Encounter [...] ICD-10 : J20.9 07/19/2017 Appointment: Pattie Sotomayor [facility] [employer] [place] [id number] ACUTE ILLNESS 07/19/2017 Patient Education: Patient Medication Summary Completed 07/19/2017 Care Plan: MAMMOGRAM SCREENING LOINC : 2 6347-5 Pending 07/19/2017 Patient Education: Patient Medication Summary Completed 06/05/2017 Care Plan: LIPID PANEL LOINC : 82898-4 Pending 06/05/2017 Care Plan: A1C HPLC LOINC : 78730-2 Pending 06/05/2017 Visit Diagnosis Plan: Rash and [...] ICD-10 : R21 05/29/2017 Appointment: Pattie Sotomayor [facility] [employer] [id number] FOLLOW UP 05/29/2017 Patient Education: Patient Medication Summary Completed 05/29/2017 Visit Diagnosis Plan: Diarrhea, unspecified Discussion : Diflucan Cholestyramine Recheck 2weeks ICD-9 : 787.91 ICD-10 : R19.7 05/07/2017 Visit Diagnosis Plan: Tinea corporis Discussion: Diflu can and topical nystatin Follow Up: 2 weeks ICD-9 : 110.5 ICD-10 : B35.4 05/07/2017 Appointment: Belia Reidtel: [address] [place] [address] US FOLLOW UP 05/07/2017 Patient Education: Patient Medication Summary Completed 05/07/2017 Appointment: Belia Reid WPtel: [address] [place] [address] US RESCHEDULED 04/30/2017 Visit Diagnosis Plan: Stridor Discussion: Increase Ati van 0.5mg po to TID routinely for next week then can go back to prn ICD-9 : 786.1 ICD-10 : R06.1 03/18/2017 Visit Diagnosis Plan: Chronic obstructiv e pulmonary disease with (acute) exacerbation Discussion: Finish prednisone Continue S VNS with albuterol ICD-9 : 491.21 ICD-10 : J44.1 03/18/2017 Appointment: Belia Reid WPtel: [address] [place] [address] ER Follow UP 03/18/2017 Patient Education: Patient [...] ICD-10 : E11.65 02/27/2017 Appointment: Belia Reidtel: [address] [place] [address] US FOLLOW UP 02/27/2017 Patient Education: Patient [...] ICD-10 : E11.65 02/22/2017 Appointment: Pattie Sotomayor [address] [place], [place] [id number] ACUTE ILLNESS 02/22/2017 Patient Education: Patient Medication Summary Completed 02/22/2017 Patient Education: Maddy - 18+ Comple mgaue 02/22/2017 Visit Diagnosis Plan: Urinary tract infection, [...] : J18.9 01/23/2017 Appointment: Belia Reid WPtel: [address] [place], [place] [phone] ER Follow UP 01/23/2017 Patient Education: Patient Medication Summary Completed 01/23/2017 Appointment: Pattie Sotomayor [address] [place], [place] [phone] CANCELED 01/17/2017 Appointment: Pattie Sotomayor [address] [place], [place] [phone] Annual Well Visit 01/14/2017 Visit Diagnosis Plan: Type 2 diabetes mellitus with hy perglycemia Discussion: Check CMP, HbA1C Flu shot and Prevnar 13 given Follow Up: 3 months ICD-9 : 250.02 ICD-10 : E11.65 12/20/2016 Visit Diagnosis Plan: Localized edema Discussion: Low Na diet Compression socks/Elevate feet ICD-9 : 782.3 ICD-10 : R60.0 12/20/2016 Appointment: Belia Reid WPtel: [facility] FOLLOW UP 12/20/2016 Patient Education: Patient Medication Summary Completed 12/20/2016 Patient Education: Patient Medication Summary Completed 10/10/2016 Visit Plan: Xrays of cervical, thoracic and lumbar spine at [facility] for Mobic (stop NSAIDS except Tylenol) and Flexeril UA sent for C&S Using SVN Call in 2-3 days if pain not improved or any worsening 10/08/2016 Appointment: Celeste Ferreira [facility]Ptel: [phone] [facility] AC[facility]LL[facility] 10/08/2016 Patient Education: Patient Medication [...] : G43.909 09/19/2016 Appointment: Belia Reid WPtel: [facility] 09/18 confirmed`sl FOLLOW UP 09/19/2016 Patient [...] : G43.909 08/20/2016 Appointment: Belia Reid WPtel: [address] [place], [place] [address] 08/16 confirmed~sl FOLLOW UP 08/20/2016 Patient Education: [...] : R06.1 06/19/2016 Appointment: Belia Reid WPtel: [address] [place], [place] [phone] 06/18 confirmed ~ Hospital Follow Up 06/19/2016 [...] : Z87.440 06/04/2016 Appointment: Belia Reid WPtel: [address] [place] [address] 06/01 confirmed~sl FOLLOW UP 06/04/2016 Patient Education: [...] N30.90 05/02/2016 Appointment: Belia Reid WPtel: [address] [place] [address] 05/01 confirmed [facility] Hospital Follow Up 05/02/2016 Patient [...] : M79.7 04/03/2016 Appointment: Belia Reid WPtel: [address] [place] [address] [facility] Follow Up 04/03/2016 Patient Education: Patient Medication Summary Completed 04/03/2016 Visit Plan: Lungs are clear Her symptoms and exam are all upper airway restriction/constriction Can try supportive care Rx as above Follow up PRN 02/29/2016 Appointment: Lidia Hwang [address] [place] [address] ACUTE ILLNESS 02/29/2016 Patient Education: Patient Medication Summary Completed 02/29/2016 Visit Plan: Toradol/Phenergan today for Migraine Change to Clindamycin to cover lactobacillus for UTI Cover with flagyl due to hx of C. Diff 02/02/2016 Appointment: Belia Reid WPtel: [address] [place] [address] 01/31 confirmed` ACUTE ILLNESS 02/02/2016 Patient Education: Patient Medication Summary Completed 02/02/2016 Visit Plan: Increase neurontin to 300mg q AM and 600mg q PM Discussed neurology re-evaluation Flu shot given Need to check on Pneumonia shot Rx written out for albuterol 01/05/2016 Appointment: Belia Reid WPtel: [address] [place], [place] [phone] 01/03 confirmed ~sl Annual Well Visit 01/05/2016 Patient Education: Patient Medication Summary Completed 01/05/2016 Visit Plan: Cipro Culture urine hydrate Flexeril refilled Alternate heat and ice for back Increase gabapentin to 300mg po BID Notify if worsens 12/05/2015 Appointment: Belia Reid WPtel: [facility] 11/30 confirmed~sl ACUTE ILLNESS 12/05/2015 Patient Education: Patient Medication Summary Completed 12/05/2015 Patient Education: Patient Medication Summary Completed 10/27/2015 Care Plan: COMPREH[place]AB[place] : 83559-9 Pending 10/27/2015 Care Plan: A1C HPLC LOINC : 87121-1 Pending 10/27/2015 Visit Plan: Lungs are CTA today and is f eeling improved overall Finish meds as ordered Continue inhalers and neb treatments Discussed migraine treatment options She does not feel she needs anything additional added today Refill of Januvia sent since no samples are available today 10/26/2015 Appointment: Lidia Hwang [address] Hospital Follow Up 10/26/2015 Appointment: Lidia Hwang [address] [facility]66[facility] CANCELED 10/26/2015 Patient Education: Patient Medication Summary Completed 10/26/2015 Patient Education: Januvia - 18+ - KENNETH - No [place] Completed 10/26/2015 Visit Plan: Office dip still abnormal Cu lture pending Switch to cipro - stop macrobid Push fluids - avoid caffeine Will call with culture results when available Follow up if worsening 10/05/2015 Appointment: Lidia Hwang [address] ER Follow UP 10/05/2015 Patient Education: Patient Medication Summary Completed 10/05/2015 Visit Plan: Proceed with PT for document ation of ROM and strength of all extremities Proceed with Power Mobility Device Trial of neurontin 300mg q HS--lyrica helped but patient unable to afford Recheck 1month 09/15/2015 Appointment: Belia Reid WPtel: [phone] [facility] 09/13 confirmed~sl SPECIAL 09/15/2015 Patient Education: Patient Medication Summary Completed 09/15/2015 Visit Plan: Fille out Loan Discharge Pap erwork for total and permanent disability 08/25/2015 Patient Education: Patient Medication Summary Completed 08/25/2015 Visit Plan: Discussed with Dr Anushka Haywood at [facility] of head 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 and update if needed 08/24/2015 Appointment: L[facility] Hwang [facility] [facility] 08/22 confirmed~sl ACUTE ILLNESS 08/24/2015 Patient Education: Patient Medication Summary Completed 08/24/2015 Patient Education: Patient Medication Summary Completed 08/24/2015 Care Plan: US EXAM OF HEAD AND NECK carotid Ultrasound LOIN C : 40107-1 Pending 08/24/2015 Visit Plan: Long discussion about diet A ccuchecks daily Check HbA1C, CMP Change requip to mirapex 07/05/2015 Appointment: Belia Reid WPtel: [address] [facility] 07/03 confirmed ~sl FOLLOW UP 07/05/2015 Patient Education: Patient Medication Summary Completed 07/05/2015 Visit Plan: Add Breo ellipta 100 1 p BID Continue SVNs with duoneb QID 06/06/2015 Appointment: Belia Reid WPtel: [address] [place], [place] [phone] Patient is calling for a ride, then [...] not improving 05/23/2015 Appointment: Huong Osborne WPtel: [address] [place] [address] ACUTE ILLNESS 05/23/2015 Appointment: Lidia Hwang [address] [place] [address] ER Follow UP 05/23/2015 Patient Education: Patient Medication Summary Completed 05/23/2015 Visit Plan: Check pancreatic enzymes and US of pancreas as patient can't understand why she has diabetes since has no family history Discussed weight, diet, exercise all play an important role in diabetes and are risk factors as well Continue Januvia and accuchecks daily 05/05/2015 Appointment: Belia Reid WPtel: [address] [place] [address] US FOLLOW UP 05/05/2015 Patient Education: Patient Medication Summary Completed 05/05/2015 Care Plan: US EXAM ABDOM COMPLETE LOINC : 99497-1 Ordered 05/05/2015 Visit Plan: Start Januvia 100mg daily [place] with diflucan and culture urine Accuchecks daily alternating times Recheck 6weeks 03/30/2015 Appointment: Belia Reid WPtel: [address] [place] [address] 03/29 confirmed~lb FOLLOW UP 03/30/2015 Patient Education: Patient Medication Summary Completed 03/30/2015 Appointment: Belia Reid WPtel: [address] [place], [place] [phone] [place] 03/01 needs reschedule due to payment and insurance ~sl FOLLOW UP 03/02/2015 Visit Plan: Patient was just in ER last night so has not filled scripts yet Start Carafate and Flagyl and Cipro Add Hyophen 1 po BID Recheck 1mo 02/03/2015 Appointment: Belia Reid WPtel: [address] [place], [place] [phone] 02/02lm ~sl...02/03/15 appt confirmed cn ACUTE I LLNESS 02/03/2015 Patient Education: Patient Medication Summary Completed 02/03/2015 Visit Plan: Warm soaks to vaginal area K elex and Diflucan and observe Zofran to use prn 12/29/2014 Appointment: Belia Reid WPtel: [address] [place] [address] 12/28 Confirmed ~ ACUTE ILLNESS 12/29/2014 Patient Education: Patient Medication Summary Completed 12/29/2014 Appointment: Huong Osborne WPtel: [address] [place], [place] [id number] FOLLOW UP 09/24/2014 Appointment: Belia Reid WPtel: [address] [place] [address] 09/15 confirmed - FOLLOW UP 09/16/2014 Visit Plan: Increase requip to 2mg po BI D Increase lyrica to 225mg total a day by adding an extra 75mg in AM Recheck in 2weeks Continue to patch left eye while sleeping 09/02/2014 Appointment: Belia Reid WPtel: [address] [place], [place] [address] 09/01 appt confirmed [facility] Follow Up 09/02 Patient Education: Patient Medication Summary Completed 09/02/2014 Visit Plan: To Via Ayanna for observat ion to R/O CVA 08/25/2014 Appointment: Huong Osborne WPtel: [address] [place], [place] [phone] ACUTE ILLNESS 08/25/2014 Patient Education: Patient Medication Summary Completed 08/25/2014 Referral: Aaron Jonas WPtel: [facility] [address] [place] location Initiated 04/26/2014 Referral: Brian Srinivasan WPtel[facility] Initiated 04/20/2014 Appointment: Belia Reid WPtel: [address] [place] [address] ER Follow UP 04/01/2014 Patient Education: Patient Medication Summary Completed 04/01/2014 Care Plan: MYELOGRAPHY NECK SPINE LOINC : 41735-0 Ordered 04/01/2014 Visit Plan: Continue Symbicort 160 at 2p BID Continue SVNs with duoneb at least QID Finish Levaquin Recheck 1mo on lyrica 03/16/2014 Appointment: Belia Reid WPtel: [address] [place], [place] [phone] 03/15 voicemail FOLLOW UP 03/16/2014 Patient Education: Patient Medication Summary Completed 03/16/2014 Visit Plan: Restart SVNs with duoneb QID Repeat prednisone Levaquin Continue symbicort Keep lyrica at same dose Recheck 1week 03/09/2014 Appointment: Belia Reid WPtel: [address] [place], [place] [phone] FOLLOW UP 03/09/2014 Patient Education: Patient Medication Summary Completed 03/09/2014 Appointment: Beila Reid WPtel: [address] [place], [place] [phone] 03/03 showed up 15 minutes late for appt -- put her on Huong's side for 10:45am FORGIVEN PER DR FOLLOW UP 03/03/2014 Appointment: Huong Osborne WPtel: [address] [place] [address] [place] FOLLOW UP 03/03/2014 Patient Education: Patient Medication Summary Completed 03/03/2014 Appointment: Huong Osborne WPtel: [address] [place], [place] [phone] ER Follow UP 03/01/2014 Patient Education: Patient Medication Summary Completed 03/01/2014 Visit Plan: Add carafate for this next m onth Increase lyrica to 150mg q HS 02/09/2014 Appointment: Belia Reid WPtel: [address] [place], [place] [phone] Hospital Follow Up 02/09/2014 Patient Education: Patient Medication Summary Completed 02/09/2014 Visit Plan: Increase omeprazole back to 40mg po BID Use requip in AM and add lyrica 75mg q HS Recheck 1mo 12/23/2013 Appointment: Belia Reid WPtel: [address] [place], [place] [phone] FOLLOW UP 12/23/2013 Patient Education: Patient Medication Summary Completed 12/23/2013 Patient Education: Patient Medication Summary Completed 12/04/2013 Appointment: Belia Reid WPtel: [address] [place], [place] [phone] UA 10/30/2013 Patient Education: Patient Medication Summary Completed 10/30/2013 Appointment: Belia Reid WPtel: [address] [place], [place] [address] UA 10/21/2013 Patient Education: Patient Medication Summary Completed 10/21/2013 Visit Plan: Cryotherapy as above TAC and hydroxyzine to use prn to itching spots and itching SKs Add Advair HFA 115/21 1 p BID 10/05/2013 Appointment: Belia Reid WPtel: [address] [place], [place] [phone] 10/01 pt called and confirmed ACUTE ILLNESS Patient Education: Patient Medication Summary Completed 10/05/2013 Appointment: Belia Reid WPtel: [address] [place], [place] [phone] will pay copay and part of past balance FOLLOW U P 08/04/2013 Patient Education: Patient Medication Summary Completed 08/04/2013 Appointment: Belia Reid WPtel: [address] [place], [place] [phone] US INJECTION 07/13/2013 Patient Education: Patient Medication Summary Completed 07/13/2013 Appointment: Huong Osborne WPtel: [phone] [address] [place], [place] [id number] ACUTE ILLNESS 07/03/2013 Patient Education: Patient Medication Summary Completed 07/03/2013 Visit Plan: Cipro and culture urine 05/27/2013 Appointment: Huong Osborne WPtel: [address] [place], [place] [id number] 05/26 confirmed appt and notified that balance and supervisor blueprinting and photocopy y is due at appt time FOLLOW UP 05/27/2013 Patient Education: Patient Medication Summary Completed 05/27/2013 Appointment: Belia Reid WPtel: [address] [place], [place] [phone] [place] UA 05/25/2013 Patient Education: Patient Medication Summary Completed 05/25/2013 Appointment: Belia Reid WPtel: [address] [place], [place] [phone] [place] INJECTION 05/04/2013 Patient Education: Patient Medication Summary Completed 05/04/2013 Appointment: Belia Reid WPtel: [address] [place], [place] [phone] [place] INJECTION 04/17/2013 Patient Education: Patient Medication Summary Completed 04/17/2013 Appointment: Belia Reid WPtel: [address] [place], [place] [phone] [place] INJECTION 04/15/2013 Appointment: Belia Reid WPtel: [address] [place], [place] [phone] 04/02 FOLLOW UP 04/06/2013 Patient Education: Patient Medication Summary Completed 04/06/2013 Visit Plan: Obtain lab results including UA from [facility] 11/10/2012 Appointment: Belia Reid WPtel: [address] [place], [place] [phone] [place] ER Follow UP 11/10/2012 Patient Education: Patient Medication Summary Completed 11/10/2012 Appointment: Belia Reid WPtel: [address] [place] [address] 10/30/12 patient canceled appt due to fin ances. Offered to work something out, patient declined-LB FOLLOW UP 11/05/2012 Visit Plan: Continue Bystolic at current dose Pt has fwup with Neurology on September 16 09/02/2012 Appointment: Belia Reid WPtel: [address] [place] [address] FOLLOW UP 09/02/2012 Patient Education: Patient Medication Summary Completed 09/02/2012 Visit Plan: Continue bystolic at 5mg chris ly Sees Neurology tomorrow Use oxygen at bedtime 08/04/2012 Appointment: Belia Reidtel: [address] [place] [address] FOLLOW UP 08/04/2012 Patient Education: Patient Medication Summary Completed 08/04/2012 Appointment: Belia Reid WPtel: [address] [place] [address] Hospital fwup for 07/21/12. merged appointments FOLLOW UP 07/24/2012 Visit Plan: Start Bystolic 5mg daily for tachycardia Fwup with neurology for further workup Overnight O2 sat 07/21/2012 Appointment: Belia Reidtel: [address] [place] [address] Hospital Follow Up 07/21/2012 Patient Education: Patient Medication Summary Completed 07/21/2012 Visit Plan: SVN with Albuterol QID Add A velox 400mg daily Notify if worsens or persists 07/02/2012 Appointment: Belia Reid WPtel: [address] [place] [address] ACUTE ILLNESS 07/02/2012 Patient Education: Patient Medication Summary Completed 07/02/2012 Appointment: Belia Reidtel: [address] [place] [address] INJECTION 06/25/2012 Patient Education: Patient Medication Summary Completed 06/25/2012 Appointment: [facility] [address] [id number] [facility] 06/24/2012 Patient Education: Patient Medication Summary Completed 06/24/2012 Appointment: Belia Reid WPtel: [address] [place], [place] [id number] 05/19 left message FOLLOW UP 05/20/2012 Patient [...] po TID 05/08/2012 Appointment: Belia Reid WPtel: [facility] [facility] 05/08/2012 Patient Education: Patient Medication Summary Completed 05/08/2012 Visit Plan: Continue current meds Contin ue lower dose on pain meds and Diazepam Still waiting on paperwork for botox for Migraines Will restart Neurontin at 600mg po q HS Pt going to stop Depakote due to can't afford 04/22/2012 Appointment: Belia Reid WPtel: [address] [place], [place] [id number] 04/21 Hospital Follow Up 04/22/2012 Patient Education: Patient Medication Summary Completed 04/22/2012 Visit Plan: Injection to shoulder as abo ve Continue current meds Has appointment with neurology on HAs in 02/13/2012 Appointment: Belia Reid WPtel: [address] [place], [place] [id number] Pt does not have $10 copay at [facility] t time - will bring it in next week. Kianna iqbal'ed this. - [place] FOLLOW UP 02/13/2012 Patient Education: Patient Medication Summary Completed 02/13/2012 Visit Plan: Proceed with headache specia list Change nexium to Protonix Phenergan to use prn Sumatriptan to use prn Pt still on Inderal 01/28/2012 Appointment: Belia Reid WPtel: [address] [place] [address] ER Follow UP 01/28/2012 Patient Education: Patient [...] for sleep 12/26/2011 Appointment: Belia Reid WPtel: [address] [place] [address] 12/24- appt. confirmed FOLLOW UP 2 Patient Education: Patient Medication Summary Completed 12/26/2011 Appointment: Belia Reid WPtel: [address] [place] [address] [place] FOLLOW UP 11/14/2011 Patient Education: Patient Medication Summary Completed 11/14/2011 Appointment: Belia Reidtel: [address] [place] [address] [place] FOLLOW UP 09/12/2011 Patient Education: Patient Medication Summary Completed 09/12/2011 Visit Plan: Supportive care Decrease Liseth catalino to 50mg q HS Decrease AM dose of Valium to 5mg q HS Use Endocet sparingly 08/15/2011 Appointment: Belia Reid WPtel: [address] [place] [address] ER Follow UP 08/15/2011 Patient Education: Patient Medication Summary Completed 08/15/2011 Appointment: Belia Reid WPtel: [address] [place] [address] [place] Spoke directly to patient yesterday and confirmed the appoin tment. cn ACUTE ILLNESS 08/09/2011 Patient Education: Patient Medication Summary Completed 08/09/2011 Appointment: Belia Reid WPtel: [address] [place] [address] Hospital Follow Up 07/03/2011 Patient Education: Patient Medication Summary Completed 07/03/2011 Appointment: Belia Reid WPtel: [address] [place] [address] FOLLOW UP 06/04/2011 Patient Education: Patient Medication Summary Completed 06/04/2011 Visit Plan: Pt. wants "allergy shot" but in fact wants steroid shot. Will take a break from [facility] and try Singulair for 2 weeks. 05/03/2011 Appointment: Iraida Jones WPtel: [address] [place] [address] ACUTE ILLNESS 05/03/2011 Patient Education: Patient Medication Summary Completed 05/03/2011 Visit Plan: Neurontin 400mg q HS for 1we ek then 800mg q HS Decrease requip to 1mg q HS for 2wks then stop Fwup 2mos 04/05/2011 Appointment: Belia Reid WPtel: [address] [place] [address] FOLLOW UP 04/05/2011 Patient Education: Patient Medication Summary Completed 04/05/2011 Visit Plan: Trial of neurontin in 2wks C ontinue current meds for stomach Pt has procedure with Dr. Ortiz next week for stone removal 03/08/2011 Appointment: Belia Reid WPtel: [address] [place] [address] Hospital Follow Up 03/08/2011 Patient Education: Patient Medication Summary Completed 03/08/2011 Appointment: Belia Reid WPtel: [address] [place] [address] FOLLOW UP 02/19/2011 Visit Plan: reports increased [...] with Flagyl 01/24/2011 Appointment: Iraida Jones WPtel: [address] [place] [address] ACUTE ILLNESS 01/24/2011 Patient Education: Patient Medication Summary Completed 01/24/2011 Appointment: Belia Reid WPtel: [address] [place] [address] [place] FOLLOW UP 01/02/2011 Patient Education: Patient Medication Summary Completed 01/02/2011 Appointment: Belia Reid WPtel: [address] [place] [address] FOLLOW UP 12/12/2010 Appointment: Belia Reid WPtel: [address] [place] [address] ACUTE ILLNESS 12/07/2010 Patient Education: Patient Medication Summary Completed 12/07/2010 Visit Plan: Increase Buspar to 10mg po B ID 11/16/2010 Appointment: Belia Reid WPtel: [address] [place] [address] FOLLOW UP 11/16/2010 Patient Education: Patient Medication Summary Completed 11/16/2010 Appointment: Iraida Jones WPtel: [address] [place] [address] ER Follow UP 11/02/2010 Patient Education: Patient Medication Summary Completed 11/02/2010 Visit Plan: Depo-Medrol/Kenalog given fo r allergies Add BuSpar for anxiety Oxycodone one p.o. q.i.d. for number 120 refilled 10/18/2010 Appointment: Belia Reid WPtel: [address] [place] [address] [place] FOLLOW UP 10/18/2010 Patient Education: Patient Medication Summary Completed 10/18/2010 Visit Plan: Continue current meds Discus sed epidurals for back vs PT--will proceed with epidurals to thoracolumbar region to see if helps with pain 09/19/2010 Appointment: Belia Reid WPtel: [address] [place], [place] [id number] FOLLOW UP 09/19/2010 Patient Education: Patient Medication Summary Completed 09/19/2010 Visit Plan: DC MS contin Check CT scan t horacic spine Fwup pending above results 09/06/2010 Appointment: Belia Reid WPtel: [address] [place], [place] [phone] FOLLOW UP 09/06/2010 Patient Education: Patient Medication Summary Completed 09/06/2010 Visit Plan: Continue current meds Restar t MS contin 15mg po BID and use oxycodone prn Use daily senokot-s 2 po BID 08/10/2010 Appointment: Belia Reid WPtel: [address] [place], [place] [phone] FOLLOW UP 08/10/2010 Patient Education: Patient Medication Summary Completed 08/10/2010 Visit Plan: Depomedrol/Kenalog given Pt sees ENT later this month Cont current meds Mammo scheduled 05/11/2010 Appointment: Belia Reid WPtel: [address] [place], [place] [phone] FOLLOW UP 05/11/2010 Patient Education: Patient Medication Summary Completed 05/11/2010 Appointment: Belia Reid WPtel: [address] [place], [place] [phone] UA 05/04/2010 Patient Education: Patient Medication Summary Completed 05/04/2010 Visit Plan: Pt sent to lab for UA 04/28/2010 Appointment: Belia Reid WPtel: [address] [place], [place] [phone] UA 04/28/2010 Patient Education: Patient Medication Summary Completed 04/28/2010 Visit Plan: Check CT angiogram of chest Restart Advair Use proair prn Cont current meds Fwup with Card as schedulec 04/06/2010 Appointment: Belia Reidtel: [address] [place] [address] Follow Up 04/06/2010 Patient Education: Patient Medication Summary Completed 04/06/2010 Visit Plan: Paperwork filled out for pow erchair Depomedrol/kenalog given Pt sees ENT in 2wks to assess nasal obstruction problems 02/09/2010 Appointment: Belia Reid WPtel: [address] [place] [address] ESTABLISHED PATIENT 02/09/2010 Patient Education: Patient Medication Summary Completed 02/09/2010 Visit Plan: Change Elavil to Trazadone 1 50mg q HS Diflucan and nystatin for tinea cruris 01/05/2010 Appointment: Belia Reidtel: [address] [place] [address] FOLLOW UP 01/05/2010 Patient Education: Patient Medication Summary Completed 01/05/2010 Appointment: Belia Reidtel: [address] [place] [address] FOLLOW UP 12/07/2009 Patient Education: Patient Medication Summary Completed 12/07/2009 Appointment: Belia Reidtel: [address] [place] [address] FOLLOW UP 11/22/2009 Visit Plan: Cont current meds and await MRI results from Dr. Meadows's office and his final recommendations Will need to follow-up at later date on deviated septum 11/08/2009 Appointment: Belia Reidtel: [address] [place] [address] FOLLOW UP 11/08/2009 Patient Education: Patient Medication Summary Completed 11/08/2009 Visit Plan: Cont PT/OT See Neurosurgery Cont Tortoise shell brace 10/24/2009 Appointment: Belia Reidtel: [address] [place], [place] [phone] FOLLOW UP 10/24/2009 Patient Education: Patient Medication Summary Completed 10/24/2009 Appointment: Belia Reid WPtel: [address] [place], [place] [id number] Hospital Follow Up 10/17/2009 Appointment: Belia Reid WPtel: [address] [place], [place] [phone] ACUTE ILLNESS 07/25/2009 Patient Education: Patient Medication Summary Completed 07/25/2009 Appointment: Belia Reid WPtel: [address] [place] [address] FOLLOW UP 05/26/2009 Patient Education: Patient Medication Summary Completed 05/26/2009 Referral: Chino Balderas WPtel: [address] [place], [place] [id number] Referral Initiated Referral: Merry Vale WPtel: [facility] [address] [id number] [place] [address] Vale will review referral and book appointment Completed Referral: Francisco Javier Yoder WPtel: [address] [id number] Patient needs EGD insurance will not inc rease a medication unless this procedure results show a need Completed Referral: Francisco Javier Yoder WPtel: [address] [id number] [place] Referral Historical Reference Referral: Fracnisco Javier Yoder WPtel: [address] [place] [address] [place] Referral Initiated Instructions Comment . 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 Long discussion [...] from "generic Zyrtec they are getting from [employer]" and try Singulair for 2 weeks. . [...]
--- OUTSIDE RECORDS SUMMARY | 2019-08-27 08:03 | XMS REPORT | CCD ---
Author Author Diana Reid D.O. Organization [facility] Address [address] [place] [address] Phone Care Team Providers Care Lunchroom Operator Name Role Phone [facility] D.O[facility] PP Unavailable CCM Unavailable Summary Purpose Interface Exchange Insurance Providers Payer name Policy type / Coverage type Covered green party ID Effective Begin Date Effective End Date [employer] MEDICARE Medicare Part B [id number] 2019 Unknown Family History Family History data not found Social History Social History Element Codes Description Effective Dates Tobacco history SNOMED CT: 886123026 Nonsmoker 09/13/2010 Allergies, Adverse Reactions, Alerts Substance Reaction Codes Entered Date Inactivated Date Status Eggs reaction [id number] 09/15/2015 No Inactive Date Active _ Unknown [...] Fill Instructions Ativan 0.5 mg tablet RxNorm: 865691 1 Tablet(s) Oral th ree times a day for anxiety/shortness of air/stridor 07/29/2019 08/27/2019 Active Singulair 10 mg tablet RxNorm: 090022 1 Tablet(s) Oral QPM 07/29/19 20 01/25/2020 Active diltiazem CD 240 mg capsule,extended release 24 hr RxNorm: 8 69334 1 Capsule(s) Oral QD 07/15/2019 01/10/2020 Active metoprolol tartrate 50 mg tablet RxNorm: 787436 1 Table t(s) Oral two times a day 07/06/2019 No Stop Date Active Novolin N NPH U-100 Insulin isophane 100 unit/mL subcu taneous susp RxNorm: 768258 25 Unit(s) Subcutaneous two times a day 07/06/2019 07/06/2019 I nactive Colestid 1 gram tablet RxNorm: 8027901 1 Tablet(s) Oral two times a day for diarrhea 07/06/2019 09/04/2019 Active pramipexole 1 mg tablet RxNorm: 945373 1 Tablet(s) Oral QPM FOR RESTLESS LEGS (REPLACES REQUIP) 06/25/2019 06/19/2020 Active hydroxyzine HCl 25 mg tablet RxNorm: 348267 1 Tablet(s) Oral QPM for itching/aniety 06/25/2019 09/23/2019 Active Ativan 0.5 mg tablet RxNorm: 780854 1 Tablet(s) Oral th ree times a day for anxiety/shortness of air/stridor 06/25/2019 07/25/2019 Inactive Levaquin 500 mg tablet RxNorm: 137910 1 Tablet(s) Oral QD 06/16/2019 06/23/2019 Inactive Flagyl 500 mg tablet RxNorm: 249341 1 Tablet(s) Oral three time s a day 06/16/2019 06/23/2019 Inactive Vancocin 125 mg capsule RxNorm: 476536 1 Capsule(s) Oral four t imes a day 06/08/2019 06/18/2019 Inactive omeprazole 40 mg capsule,delayed release RxNorm: 810332 1 Capsule(s) Oral two times a day 05/26/2019 11/21/2019 Active Flagyl 500 mg tablet RxNorm: 364972 1 Tablet(s) Oral three time s a day 05/26/2019 06/05/2019 Inactive diltiazem CD 240 mg capsule,extended release 24 hr RxNorm: 8 52057 1 Capsule(s) Oral QD 05/26/2019 07/14/2019 Inactive Cipro 250 mg tablet RxNorm: 575173 1 Tablet(s) Oral two times a day 05/26/2019 06/02/2019 Inactive hydroxyzine HCl 25 mg tablet RxNorm: 581445 1 Tablet(s) Oral QPM for itching/aniety 05/21/2019 06/24/2019 Inactive metoprolol tartrate 25 mg tablet RxNorm: 125738 1 Table t(s) Oral two times a day 05/21/2019 07/05/2019 Inactive hydroxyzine HCl 25 mg tablet RxNorm: 842683 1 Tablet(s) Oral QPM for itching/aniety 05/13/2019 05/20/2019 Inactive Singulair 10 mg tablet RxNorm: 943063 1 Tablet(s) Oral QPM 05/06/1905/12/2019 Inactive gabapentin 600 mg tablet RxNorm: 111317 1 Tablet(s) Oral QD 020 06/05/2019 Inactive Valium 5 mg tablet RxNorm: 597636 1 Tablet(s) Oral QPM for stri joao/muscle spasm 04/29/2019 06/24/2019 Inactive baclofen 10 mg tablet RxNorm: 438372 1 Tablet(s) Oral QPM for s pasm/neck pain 04/24/2019 05/23/2019 Inactive baclofen 10 mg tablet RxNorm: 068660 1 Tablet(s) Oral QPM for s pasm/neck pain 04/24/2019 04/23/2019 Inactive Novolin N NPH U-100 Insulin isophane 100 unit/mL subcu taneous susp RxNorm: 570054 23 Unit(s) Subcutaneous two times a day 04/20/2019 07/05/2019 I nactive cyclobenzaprine 5 mg tablet RxNorm: 945644 1 Tablet(s) Oral three times a day as needed 04/16/2019 04/23/2019 Inactive hydroxyzine HCl 25 mg tablet RxNorm: 522402 1 Tablet(s) Oral three times a day for itching/aniety 04/08/2019 05/12/2019 Inactive gabapentin 600 mg tablet RxNorm: 944133 1 Tablet(s) Oral two ti mes a day 04/08/2019 05/05/2019 Inactive gabapentin 600 mg tablet RxNorm: 277413 1 Tablet(s) Oral two ti mes a day 04/08/2019 04/07/2019 Inactive Novolin N NPH U-100 Insulin isophane 100 unit/mL subcu taneous susp RxNorm: 230777 10 Unit(s) Subcutaneous two times a day 03/03/2019 04/19/2019 I nactive gabapentin 300 mg capsule RxNorm: 878347 1 Capsule(s) O ral every night at bedtime for neuropathy 02/26/2019 04/07/2019 Inactive gabapentin 300 mg capsule RxNorm: 053471 1 Capsule(s) O ral every night at bedtime for neuropathy 02/20/2019 02/25/2019 Inactive buspirone 5 mg tablet RxNorm: 882546 TAKE 1 TABLET THREE TIMES MILDRED Y 02/12/2019 05/12/2019 Inactive pramipexole 1 mg tablet RxNorm: 663227 1 Tablet(s) Oral QPM FOR RESTLESS LEGS (REPLACES REQUIP) 02/12/2019 06/24/2019 Inactive Lexapro 10 mg tablet RxNorm: 314696 TAKE 1 TABLET EVERY DAY FOR MOO D 01/31/2019 No Stop Date Active Ativan 0.5 mg tablet RxNorm: 173014 TAKE 1 TABLET BY MO UT THREE TIMES DAILY NEEDED FOR ANXIETY 01/26/2019 04/28/2019 Inactive Ativan 0.5 mg tablet RxNorm: 102729 TAKE 1 TABLET BY MO UT THREE TIMES DAILY NEEDED FOR ANXIETY 01/05/2019 01/05/2019 Inactive Levaquin 500 mg tablet RxNorm: 403467 1 Tablet(s) Oral QD 12/25/2018 12/24/2018 Inactive Levaquin 500 mg tablet RxNorm: 581027 1 Tablet(s) Oral QD 12/25/2018 01/04/2019 Inactive baclofen 10 mg tablet RxNorm: 343609 1 Tablet(s) Oral three maico es a day 11/20/2018 01/19/2019 Inactive Ativan 0.5 mg tablet RxNorm: 413176 TAKE 1 TABLET BY MO UT THREE TIMES DAILY NEEDED FOR ANXIETY 11/20/2018 01/04/2019 Inactive gabapentin 300 mg capsule RxNorm: 467062 1 Capsule(s) O ral every night at bedtime for neuropathy 11/20/2018 12/20/2018 Inactive Lexapro 10 mg tablet RxNorm: 067369 1 Tablet(s) PO QD for mood 07/201801/30/2019 Inactive Zithromax Z-Lj 250 mg tablet RxNorm: 021047 Tablet(s) PO take as directed 11/04/2018 11/19/2018 Inactive Insulin Syringe 1 mL 29 gauge x 1/2" RxNorm: 2 s yringes daily with insulin Dx: E11.65 10/08/2018 No Stop Date Active gabapentin 300 mg capsule RxNorm: 846720 1 Capsule(s) PO QHS fo r neuropathy 09/18/2018 10/17/2018 Inactive cyclobenzaprine 5 mg tablet RxNorm: 390101 1 Tablet(s) PO TID a s needed 09/09/2018 09/08/2018 Inactive cyclobenzaprine 5 mg tablet RxNorm: 746387 1 Tablet(s) PO TID a s needed 09/09/2018 10/08/2018 Inactive prednisone 20 mg tablet RxNorm: 603204 1 Tablet(s) PO QD 09/08/2018 0 09/12/2018 Inactive Lantus Solostar U-100 Insulin 100 unit/mL (3 mL) subcu taneous pen RxNorm: 712416 55 Unit(s) SQ QAM 08/28/2018 11/03/2018 Inactive hydroxyzine HCl 25 mg tablet RxNorm: 851152 1 Tablet(s) PO QHS for itching 08/20/2018 05/12/2019 Inactive Lexapro 10 mg tablet RxNorm: 587534 1 Tablet(s) PO QD for mood 08/0210/18/2018 Inactive sumatriptan 100 mg tablet RxNorm: 860497 1 Tablet(s) PO at headache onset. May repeat 1 in two hours if headache remains. Max of 2 per 24 hours 04/02/2018 05/20/2018 Inactive Diflucan 150 mg tablet RxNorm: 746563 1 Tablet(s) PO QD 03/18/2018 Inactive Diflucan 150 mg tablet RxNorm: 188589 1 Tablet(s) PO QD 03/18/2018 Inactive Flagyl 500 mg tablet RxNorm: 526229 1 Tablet(s) PO TID 03/17/2018 Inactive Levaquin 500 mg tablet RxNorm: 873006 1 Tablet(s) PO QD 03/17/2018 Inactive Levaquin 500 mg tablet RxNorm: 189361 1 Tablet(s) PO QD 03/17/2018 Inactive Flagyl 500 mg tablet RxNorm: 481894 1 Tablet(s) PO TID 03/17/2018 Inactive ketoconazole 200 mg tablet RxNorm: 433751 1 Tablet(s) PO QD 019 03/19/2018 Inactive Celebrex 200 mg capsule RxNorm: 226959 1 Capsule(s) PO BID 02/06/20 18 05/20/2018 Inactive tramadol 50 mg tablet RxNorm: 023740 1 Tablet(s) PO TID as needed 1 04/08/2017 05/20/2018 Inactive gabapentin 300 mg capsule RxNorm: 156221 1 Capsule(s) PO BID 201705/20/2018 Inactive Diflucan 150 mg tablet RxNorm: 175281 1 Tablet(s) PO QD 01/20/2018 Inactive pramipexole 1 mg tablet RxNorm: 938751 1 Tablet(s) PO Q PM FOR RESTLESS LEGS (REPLACES REQUIP) 01/08/2018 02/11/2019 Inactive cyclobenzaprine 10 mg tablet RxNorm: 179781 1 Tablet(s) PO TID as needed for muscle spasm 12/17/2017 05/20/2018 Inactive pramipexole 1 mg tablet RxNorm: 043572 TAKE 1 TABLET BY MOUTH ONCE DAILY IN THE EVENING FOR RESTLESS LEGS (REPLACES REQUIP) 12/04/2017 01/05/2018 Inac tive Amaryl 4 mg tablet RxNorm: 847894 1 Tablet(s) PO BID replaces 2mg 0 11/05/2017 12/16/2017 Inactive Singulair 10 mg tablet RxNorm: 087940 1 Tablet(s) PO QHS for al lergies/lungs 10/30/2017 12/16/2017 Inactive Diflucan 100 mg tablet RxNorm: 414669 1 Tablet(s) PO QD 10/23/2017 Inactive Ativan 0.5 mg tablet RxNorm: 968532 TAKE 1 TABLET BY MOUTH THRE E TIMES DAILY 08/30/2017 11/20/2018 Inactive buspirone 5 mg tablet RxNorm: 809123 1 Tablet(s) PO TID 07/11/2017 Inactive propranolol 60 mg tablet RxNorm: 082355 1 Tablet(s) PO BID repl aces 40mg dose 06/26/2017 12/16/2017 Inactive Amaryl 4 mg tablet RxNorm: 864528 1 Tablet(s) PO BID replaces 2mg 0 06/12/2017 11/05/2017 Inactive omeprazole 40 mg capsule,delayed release RxNorm: 415171 1 Capsule(s) PO BID TAKE ONE CAPSULE BY MOUTH TWICE DAILY 05/30/2017 11/25/2017 Inactive pramipexole 1 mg tablet RxNorm: 003375 1 Tablet(s) PO Q PM for restless legs--replaces requip 05/30/2017 11/25/2017 Inactive amitriptyline 50 mg tablet RxNorm: 757933 1 Tablet(s) PO QHS 201709/16/2017 Inactive Diflucan 100 mg tablet RxNorm: 850791 1 Tablet(s) PO BID 05/07/2017 0 05/20/2017 Inactive nystatin (bulk) 100 million unit powder RxNorm: Application TO P BID 05/07/2017 05/20/2018 Inactive cholestyramine (with sugar) 4 gram oral powder RxNorm: 116484 1 Unit Dose PO QD 05/07/2017 01/20/2018 Inactive Ativan 0.5 mg tablet RxNorm: 944803 TAKE ONE TABLET BY MOUTH TH REE TIMES DAILY 05/01/2017 09/02/2017 Inactive Trulicity 1.5 mg/0.5 mL subcutaneous pen injector RxNorm: 15 54366 1 Unit Dose SQ WEEKLY 02/22/2017 03/23/2017 Inactive doxycycline hyclate 100 mg capsule RxNorm: 7492215 1 Capsule(s) PO BID 01/23/2017 02/05/2017 Inactive Amaryl 4 mg tablet RxNorm: 777135 1 Tablet(s) PO BID replaces 2mg 1 03/25/2016 05/22/2017 Inactive magnesium oxide 400 mg capsule RxNorm: 146931 1 Capsule(s) PO QD 07/18/2017 Inactive Ativan 0.5 mg tablet RxNorm: 981419 TAKE ONE TABLET BY MOUTH TH REE TIMES DAILY 01/17/2017 05/01/2017 Inactive Amaryl 2 mg tablet RxNorm: 747996 1 Tablet(s) PO BID 12/27/201601/22 Inactive Amaryl 2 mg tablet RxNorm: 123994 1 Tablet(s) PO BID 12/26/201612/26 Inactive Ativan 0.5 mg tablet RxNorm: 885773 TAKE ONE TABLET BY MOUTH TH REE TIMES DAILY 12/05/2016 01/18/2017 Inactive pramipexole 1 mg tablet RxNorm: 280589 1 Tablet(s) PO Q PM for restless legs--replaces requip 11/26/2016 05/30/2017 Inactive Mobic 15 mg tablet RxNorm: 656655 1 Tablet(s) PO QD 10/08/20162016 Inactive cyclobenzaprine 5 mg tablet RxNorm: 703615 1/2- 1 Tablet(s) PO TID 10/08/2016 10/17/2016 Inactive Ativan 0.5 mg tablet RxNorm: 344971 1 Tablet(s) PO TID 09/20/201607/2016 Inactive amitriptyline 50 mg tablet RxNorm: 554974 1 Tablet(s) PO QHS 201605/30/2017 Inactive propranolol 60 mg tablet RxNorm: 954523 1 Tablet(s) PO BID repl aces 40mg dose 09/19/2016 06/26/2017 Inactive Ativan 0.5 mg tablet RxNorm: 652559 1 Tablet(s) PO TID 08/20/2016 Inactive omeprazole 40 mg capsule,delayed release RxNorm: 528342 1 Capsule(s) PO BID TAKE ONE CAPSULE BY MOUTH TWICE DAILY 08/20/2016 05/30/2017 Inactive amitriptyline 50 mg tablet RxNorm: 038828 1 Tablet(s) PO QHS 201609/18/2016 Inactive pramipexole 1 mg tablet RxNorm: 081860 1 Tablet(s) PO Q PM for restless legs--replaces requip 07/23/2016 11/25/2016 Inactive Amaryl 2 mg tablet RxNorm: 810137 1 Tablet(s) PO BID 07/23/201612/27 Inactive propranolol 40 mg tablet RxNorm: 200031 1 Tablet(s) PO BID 07/13/19 17 09/18/2016 Inactive Ativan 0.5 mg tablet RxNorm: 456719 1 Tablet(s) PO QID 06/19/2016 Inactive Amaryl 2 mg tablet RxNorm: 472827 1 Tablet(s) PO BID 06/19/201607/22 Inactive Ativan 0.5 mg tablet RxNorm: 515416 1 Tablet(s) PO QID 06/19/2016 Inactive buspirone 5 mg tablet RxNorm: 856886 1 Tablet(s) PO TID 06/19/2016 Inactive Ativan 0.5 mg tablet RxNorm: 255149 1 Tablet(s) PO BID 05/24/2016 Inactive buspirone 5 mg tablet RxNorm: 660251 1 Tablet(s) PO TID 05/23/2016 Inactive Macrobid 100 mg capsule RxNorm: 806077 1 Capsule(s) PO QOD 05/03/19 17 10/07/2016 Inactive pramipexole 1 mg tablet RxNorm: 860378 Tablet(s) 1 Tabl et(s) PO QPM for restless legs--replaces requip 04/26/2016 06/24/2016 Inactive propranolol 40 mg tablet RxNorm: 808422 TAKE ONE TABLET BY MOUT H TWICE DAILY 04/26/2016 06/24/2016 Inactive Detrol LA 4 mg capsule,extended release RxNorm: 650462 1 Capsul e(s) PO QHS 04/03/2016 05/02/2016 Inactive prednisone 20 mg tablet RxNorm: 043751 1 Tablet(s) PO QD 02/29/2016 0 03/04/2016 Inactive Actos 30 mg tablet RxNorm: 424568 TAKE ONE TABLET BY MOUTH ONCE DAILY 02/27/2016 12/19/2016 Inactive clindamycin 300 mg capsule RxNorm: 933951 1 Capsule(s) PO TID 02/0102/08/2016 Inactive Flagyl 500 mg tablet RxNorm: 903311 1 Tablet(s) PO BID 02/02/201609/2015 Inactive omeprazole 40 mg capsule,delayed release RxNorm: 055245 TAKE ONE CAPSULE BY MOUTH TWICE DAILY 01/15/2016 07/12/2016 Inactive gabapentin 300 mg capsule RxNorm: 856990 1 Capsule(s) PO QAM an d 2 po q HS 01/05/2016 06/18/2016 Inactive gabapentin 300 mg capsule RxNorm: 798418 1 Capsule(s) P O BID 1 Capsule(s) PO QHS 12/05/2015 01/04/2016 Inactive cyclobenzaprine 10 mg tablet RxNorm: 265432 1 Tablet(s) PO TID for spasm as needed for muscle spasm 12/05/2015 06/18/2016 Inactive ciprofloxacin 250 mg tablet RxNorm: 207002 1 Tablet(s) PO BID 12/0412/14/2015 Inactive pramipexole 1 mg tablet RxNorm: 190670 Tablet(s) 1 Tabl et(s) PO QPM for restless legs--replaces requip 11/07/2015 11/26/2016 Inactive Januvia 100 mg tablet RxNorm: 146961 1 Tablet(s) PO QD 10/26/201504/2015 Inactive propranolol 40 mg tablet RxNorm: 346460 TAKE ONE TABLET BY MOUT H TWICE DAILY 10/25/2015 04/21/2016 Inactive gabapentin 300 mg capsule RxNorm: 932092 1 Capsule(s) PO QHS 201512/04/2015 Inactive Cipro 500 mg tablet RxNorm: 090694 1 Tablet(s) PO BID 10/05/2015 0811/2015 Inactive pramipexole 1 mg tablet RxNorm: 004534 Tablet(s) 1 Tabl et(s) PO QPM for restless legs--replaces requip 10/04/2015 11/02/2015 Inactive propranolol 40 mg tablet RxNorm: 156403 TAKE ONE TABLET BY MOUT H TWICE DAILY 09/26/2015 10/24/2015 Inactive Amaryl 2 mg tablet RxNorm: 655675 1 Tablet(s) PO QD 09/15/20152016 Inactive gabapentin 300 mg capsule RxNorm: 143420 1 Capsule(s) PO QHS 201510/14/2015 Inactive buspirone 5 mg tablet RxNorm: 041207 1 Tablet(s) PO TID 09/15/2015 Inactive pramipexole 1 mg tablet RxNorm: 022770 Tablet(s) 1 Tabl et(s) PO QPM for restless legs--replaces requip 09/08/2015 10/03/2015 Inactive pramipexole 1 mg tablet RxNorm: 915461 1 Tablet(s) PO Q PM for restless legs--replaces requip 08/08/2015 09/08/2015 Inactive Amaryl 2 mg tablet RxNorm: 676098 1 Tablet(s) PO QD 07/07/20152015 Inactive pramipexole 1 mg tablet RxNorm: 599802 1 Tablet(s) PO Q PM for restless legs--replaces requip 07/05/2015 08/03/2015 Inactive ropinirole 2 mg tablet RxNorm: 326331 TAKE ONE TABLET BY MOUTH TWICE DAILY 05/09/2015 09/14/2015 Inactive Diflucan 100 mg tablet RxNorm: 873364 1 Tablet(s) PO QD 03/30/2015 Inactive propranolol 40 mg tablet RxNorm: 961912 1 Tablet(s) PO BID 02/24/20 15 08/21/2015 Inactive [SAVINGS FOR UNINSURED PATIE NTS -- BIN:741162, PCN: ASPROD1, Group: AME08, ID# [id number], Process claim through Synchrony, for questions: . THIS IS NOT INSURANCE.] Flagyl 500 mg tablet RxNorm: 056174 1 Tablet(s) PO BID 02/03/201502/2015 Inactive Cipro 500 mg tablet RxNorm: 394238 1 Tablet(s) PO BID 02/03/201502/01 Inactive Carafate 1 gram tablet RxNorm: 648917 1 Tablet(s) PO QID make i nto slurry 02/03/2015 09/14/2015 Inactive ondansetron HCl 4 mg tablet RxNorm: 668567 1 Tablet(s) PO Q4H as needed for nausea 12/29/2014 01/04/2016 Inactive Diflucan 100 mg tablet RxNorm: 298774 1 Tablet(s) PO QD 12/29/2014 Inactive Keflex 500 mg capsule RxNorm: 556133 1 Capsule(s) PO TID 12/29/2014 1 03/09/2014 Inactive omeprazole 40 mg capsule,delayed release RxNorm: 021903 1 Capsu le(s) PO BID 12/27/2014 12/21/2015 Inactive [SAVINGS FOR UNINSUR ED PATIENTS -- BIN:782998, PCN: ASPROD1, Group: AME08, ID# [id number], Process claim through MedImpact, for questions: . THIS IS NOT INSURANCE.] ropinirole 2 mg tablet RxNorm: 196608 1 Tablet(s) PO BID 09/29/2014 0 03/27/2015 Inactive [SAVINGS FOR UNINSURED PATIENTS -- BIN:0 88602, PCN: ASPROD1, Group: AME08, ID# [id number], Process claim through MedImpact, for questions: . THIS IS NOT INSURANCE.] buspirone 5 mg tablet RxNorm: 940428 1 Tablet(s) PO TID 09/17/2014 Inactive ropinirole 2 mg tablet RxNorm: 890674 1 Tablet(s) PO BID 09/02/2014 0 09/28/2014 Inactive [SAVINGS FOR UNINSURED PATIENTS -- BIN:0 56454, PCN: ASPROD1, Group: AME08, ID# [id number], Process claim through MedImpact, for questions: . THIS IS NOT INSURANCE.] Zyrtec 10 mg tablet RxNorm: 1786452 1 Tablet(s) PO QD 09/02/201412/02 Inactive propranolol 40 mg tablet RxNorm: 448764 1 Tablet(s) PO BID 07/21/19 15 02/23/2015 Inactive [SAVINGS FOR UNINSURED PATIE NTS -- BIN:927534, PCN: ASPROD1, Group: AME08, ID# [id number], Process claim through MedImpact, for questions: . THIS IS NOT INSURANCE.] ropinirole 2 mg tablet RxNorm: 036559 1 Tablet(s) PO QHS 05/14/2014 0 09/01/2014 Inactive [SAVINGS FOR UNINSURED PATIENTS -- BIN:0 76825, PCN: ASPROD1, Group: AME08, ID# [id number], Process claim through MedImpact, for questions: . THIS IS NOT INSURANCE.] cyclobenzaprine 10 mg tablet RxNorm: 523686 1 Tablet(s) PO QHS for spasm 04/06/2014 09/01/2014 Inactive ipratropium-albuterol 0.5 mg-3 mg(2.5 mg base)/3 mL ne bulization soln RxNorm: 3574725 1 Unit Dose INH Q4H 03/16/2014 No Stop Date Active [SAVINGS FOR UNINSURED PATIENTS -- BIN:309752, PCN: ASPROD1, Group: AME08, ID# [id number], Process claim through MedImpact, for questions: . THIS IS NOT INSURANCE.] prednisone 20 mg tablet RxNorm: 754615 1 Tablet(s) PO BID 03/09/2014 03/15/2014 Inactive [SAVINGS FOR UNINSURED PATIENTS -- BIN:0 18824, PCN: ASPROD1, Group: AME08, ID# [id number], Process claim through MedImpact, for questions: . THIS IS NOT INSURANCE.] ipratropium-albuterol 0.5 mg-3 mg(2.5 mg base)/3 mL ne bulization soln RxNorm: 7828440 1 Unit Dose INH Q4H 03/09/2014 03/15/2014 Inactive [SAVINGS FOR UNINSURED PATIENTS -- BIN:829425, PCN: ASPROD1, Group: AME08, ID# [id number], Process claim through MedImpact, for questions: . THIS IS NOT INSURANCE.] Levaquin 500 mg tablet RxNorm: 937913 1 Tablet(s) PO QD 03/09/2014 Inactive [SAVINGS FOR UNINSURED PATIENTS -- BIN:0 78365, PCN: ASPROD1, Group: AME08, ID# [id number], Process claim through MedImpact, for questions: . THIS IS NOT INSURANCE.] Carafate 1 gram tablet RxNorm: 214753 1 Tablet(s) PO AC & HS ma ke into slurry 02/09/2014 09/01/2014 Inactive [SAVINGS FOR UNINSUR ED PATIENTS -- BIN:511566, PCN: ASPROD1, Group: AME08, ID# [id number], Process claim through MedImpact, for questions: . THIS IS NOT INSURANCE.] Fioricet 50 mg-300 mg-40 mg capsule RxNorm: 6207738 1-2 Capsule(s) PO Q4H as needed for headache --max of 6 a day 02/09/2014 09/01/2014 Inactive [SAVINGS FOR UNINSURED PATIENTS -- BIN:379975, PCN: ASPROD1, Group: AME08, ID# [id number], Process claim through MedImpact, for questions: . THIS IS NOT INSURANCE.] propranolol 40 mg tablet RxNorm: 331664 1 Tablet(s) PO BID 12/08/19 14 06/04/2014 Inactive [SAVINGS FOR UNINSURED PATIE NTS -- BIN:513779, PCN: ASPROD1, Group: AME08, ID# [id number], Process claim through MedImpact, for questions: . THIS IS NOT INSURANCE.] buspirone 5 mg tablet RxNorm: 756499 1 Tablet(s) PO TID 12/02/2013 Inactive omeprazole 40 mg capsule,delayed release RxNorm: 986978 1 Capsu le(s) PO BID 11/25/2013 11/19/2014 Inactive [SAVINGS FOR UNINSUR ED PATIENTS -- BIN:101560, PCN: ASPROD1, Group: AME08, ID# [id number], Process claim through MedImpact, for questions: . THIS IS NOT INSURANCE.] ropinirole 2 mg tablet RxNorm: 173782 1 Tablet(s) PO QHS 11/10/2013 0 05/08/2014 Inactive [SAVINGS FOR UNINSURED PATIENTS -- BIN:0 75827, PCN: ASPROD1, Group: AME08, ID# [id number], Process claim through MedImpact, for questions: . THIS IS NOT INSURANCE.] Cipro 500 mg tablet RxNorm: 731896 1 Tablet(s) PO BID 10/21/201312/03 Inactive [SAVINGS FOR UNINSURED PATIENTS -- BIN:0 25586, PCN: ASPROD1, Group: AME08, ID# [id number], Process claim through MedImpact, for questions: . THIS IS NOT INSURANCE.] hydroxyzine HCl 25 mg tablet RxNorm: 783712 1 Tablet(s) PO Q4-6 H as needed 10/05/2013 01/04/2016 Inactive [SAVINGS FOR UNINSUR ED PATIENTS -- BIN:237223, PCN: ASPROD1, Group: AME08, ID# [id number], Process claim through MedImpact, for questions: . THIS IS NOT INSURANCE.] triamcinolone acetonide 0.1 % topical cream RxNorm: 9359362 Appl ication TOP BID 10/05/2013 09/01/2014 Inactive [SAVINGS FOR UNINSUR ED PATIENTS -- BIN:647405, PCN: ASPROD1, Group: AME08, ID# [id number], Process claim through MedImpact, for questions: . THIS IS NOT INSURANCE.] albuterol sulfate HFA 90 mcg/actuation aerosol inhaler RxNor m: 3151044 2 Puff(s) INH Q4H as needed for cough 10/01/2013 12/22/2013 Inactive [MAKSIM INGS FOR UNINSURED PATIENTS -- BIN:055449, PCN: ASPROD1, Group: AME08, ID# [id number], Process claim through MedImpact, for questions: . THIS IS NOT INSURANCE.] propranolol 40 mg tablet RxNorm: 829503 1 Tablet(s) PO BID 09/02/19 14 11/29/2013 Inactive [SAVINGS FOR UNINSURED PATIE NTS -- BIN:446316, PCN: ASPROD1, Group: AME08, ID# [id number], Process claim through Synchrony, for questions: . THIS IS NOT INSURANCE.] propranolol 40 mg tablet RxNorm: 469623 1 Tablet(s) PO BID 08/05/19 14 08/31/2013 Inactive [SAVINGS FOR UNINSURED PATIE NTS -- BIN:393687, PCN: ASPROD1, Group: AME08, ID# [id number], Process claim through Synchrony, for questions: . THIS IS NOT INSURANCE.] Toprol XL 50 mg tablet,extended release RxNorm: 188480 1 Tablet (s) PO QHS 07/23/2013 08/03/2013 Inactive Macrobid 100 mg capsule RxNorm: 617319 1 Capsule(s) PO BID 07/04/19 14 07/09/2013 Inactive Toprol XL 50 mg tablet,extended release RxNorm: 490452 1 Tablet (s) PO QHS 05/28/2013 06/26/2013 Inactive ciprofloxacin 500 mg tablet RxNorm: 271910 1 Tablet(s) PO BID 05/2706/02/2013 Inactive Bystolic 5 mg tablet RxNorm: 295396 1 Tablet(s) PO QD 05/27/201305/03 Inactive ropinirole 2 mg tablet RxNorm: 771048 1 Tablet(s) PO QHS 04/22/2013 0 11/09/2013 Inactive Cipro 250 mg tablet RxNorm: 749378 1 Tablet(s) PO BID 04/06/201311/2013 Inactive ropinirole 2 mg tablet RxNorm: 513334 1 Tablet(s) PO QHS 02/17/2013 0 04/21/2013 Inactive Amaryl 2 mg tablet RxNorm: 046296 1 Tablet(s) PO QAM 11/11/201211/10 Inactive Amaryl 2 mg tablet RxNorm: 235825 1 Tablet(s) PO QAM 11/11/201204/05 Inactive omeprazole 40 mg capsule,delayed release RxNorm: 237283 1 Capsu le(s) PO BID 08/14/2012 08/08/2013 Inactive Bystolic 5 mg tablet RxNorm: 482136 1 Tablet(s) PO QD 08/14/201205/03 Inactive propranolol 60 mg tablet RxNorm: 420342 Tablet(s) PO TAKE 1 TAB LET TWICE DAILY 08/01/2012 09/01/2012 Inactive Bystolic 5 mg tablet RxNorm: 995520 1 Tablet(s) PO QD 07/21/201207/02 Inactive Bystolic 5 mg tablet RxNorm: 061697 1 Tablet(s) PO QD 07/21/201207/03 Inactive Prilosec 40 mg capsule,delayed release RxNorm: 262441 1 Capsule (s) PO BID 06/24/2012 07/21/2012 Inactive buspirone 10 mg tablet RxNorm: 622079 1 Tablet(s) PO TID 05/08/2012 0 05/23/2016 Inactive Valium 10 mg tablet RxNorm: 012795 1 Tablet(s) PO BID 04/02/201207/03 Inactive Endocet 10 mg-325 mg tablet RxNorm: 0884665 1 Tablet(s) PO QID 03/0607/21/2012 Inactive as needed for severe pain Valium 10 mg tablet RxNorm: 815370 1 Tablet(s) PO BID 02/27/2012 No S top Date Active Endocet 10 mg-325 mg tablet RxNorm: 4494592 1 Tablet(s) PO QID 02/0203/27/2012 Inactive as needed for severe pain Endocet 10 mg-325 mg tablet RxNorm: 8958171 1 Tablet(s) PO QID 01/0302/26/2012 Inactive as needed for severe pain Valium 10 mg tablet RxNorm: 449278 1 Tablet(s) PO BID 01/29/2012 No S top Date Active Protonix 40 mg tablet,delayed release RxNorm: 142227 1 Tablet(s ) PO QD 01/28/2012 07/21/2012 Inactive metformin ER 500 mg tablet,extended release 24 hr RxNorm: 86 0977 1 Tablet(s) PO QD 12/26/2011 07/20/2012 Inactive Trazadone 150 mg Tablet RxNorm: 1 Tablet(s) PO QHS prn sleep 1 04/23/2012 Inactive Endocet 10 mg-325 mg tablet RxNorm: 4606265 1 Tablet(s) PO QID 12/0301/24/2012 Inactive as needed for severe pain Nexium 40 mg capsule,delayed release RxNorm: 395932 1 Capsule(s ) PO QD 12/26/2011 01/27/2012 Inactive Symbicort 160 mcg-4.5 mcg/actuation HFA Aerosol Inhaler RxNo rm: 8690399 2 Puff(s) INH BID 12/04/2011 07/21/2012 Inactive Endocet 10 mg-325 mg tablet RxNorm: 9352300 1 Tablet(s) PO QID 11/0312/25/2011 Inactive as needed for severe pain metformin ER 500 mg tablet,extended release 24 hr RxNorm: 86 0977 1 Tablet(s) PO QD 11/20/2011 12/19/2011 Inactive metformin ER 500 mg tablet,extended release 24 hr RxNorm: 86 0977 1 Tablet(s) PO QD 11/20/2011 11/19/2011 Inactive amitriptyline 100 mg tablet RxNorm: 228134 Tablet(s) PO QHS 1 a nd /2 tabs QHS 11/12/2011 11/13/2011 Inactive Valium 10 mg tablet RxNorm: 931143 1 Tablet(s) PO BID 11/09/2011 No S top Date Active Endocet 10 mg-325 mg tablet RxNorm: 7748608 1 Tablet(s) PO QID 10/0211/14/2011 Inactive as needed for severe pain Aricept 10 mg Tab RxNorm: 974308 1 Tablet(s) PO QD 10/05/2011 013 Inactive Valium 10 mg tablet RxNorm: 558863 1 Tablet(s) PO BID 10/05/2011 No S top Date Active Endocet 10 mg-325 mg Tab RxNorm: 4587610 1 Tablet(s) PO QID 012 10/09/2011 Inactive as needed for severe pain Aricept 10 mg Tab RxNorm: 326538 1 Tablet(s) PO QD 08/14/2011 012 Inactive Endocet 10 mg-325 mg Tab RxNorm: 3095256 1 Tablet(s) PO QID 012 08/31/2011 Inactive as needed for severe pain Valium 10 mg Tab RxNorm: 896176 1 Tablet(s) PO BID 08/02/2011 No Stop Date Active propranolol 60 mg tablet RxNorm: 370185 1 Tablet(s) PO BID 07/26/19 12 09/11/2011 Inactive amitriptyline 100 mg tablet RxNorm: 227081 Tablet(s) PO QHS 1 a nd 1/2 tabs QHS 06/20/2011 09/11/2011 Inactive buspirone 10 mg tablet RxNorm: 961455 1 Tablet(s) PO BID 06/18/2011 0 09/15/2011 Inactive propranolol 60 mg Tab RxNorm: 581529 1 Tablet(s) PO BID 06/18/2011 Inactive gabapentin 800 mg Tab RxNorm: 728258 1 Tablet(s) PO BID 06/18/2011 Inactive ropinirole 2 mg tablet RxNorm: 680420 1 Tablet(s) PO QHS 05/29/2011 0 08/26/2011 Inactive trimethoprim 100 mg Tab RxNorm: 510534 1 Tablet(s) PO QHS 05/29/2011 07/21/2012 Inactive Endocet 10 mg-325 mg Tab RxNorm: 5915130 1 Tablet(s) PO QID 012 2011 Inactive as needed for severe pain Valium 10 mg Tab RxNorm: 876885 1 Tablet(s) PO QHS N eed to take med as prescribed. this is a 40 day RX. No early fills. 05/17/2011 05/20/2018 Inactive propranolol 60 mg Tab RxNorm: 313431 1 Tablet(s) PO BID 04/16/2011 Inactive Neurontin 800 mg Tab RxNorm: 797508 1 Tablet(s) PO QHS 04/05/201103/2011 Inactive Endocet 10 mg-325 mg Tab RxNorm: 5806839 1 Tablet(s) PO QID 012 05/02/2011 Inactive as needed for severe pain oxycodone-acetaminophen 10 mg-325 mg tablet RxNorm: 0826535 1 Ta blet(s) PO Q4H 03/28/2011 05/19/2012 Inactive Valium 10 mg Tab RxNorm: 491313 1 Tablet(s) PO QHS 03/28/2011 012 Inactive buspirone 10 mg Tab RxNorm: 843357 1 Tablet(s) PO BID 03/27/201106/02 Inactive propranolol 60 mg Tab RxNorm: 137263 1 Tablet(s) PO BID 03/19/2011 Inactive Klor-Con M20 20 mEq Tab RxNorm: 7963016 1 Tablet(s) PO QD 03/19/2011 07/21/2012 Inactive Aricept 10 mg Tab RxNorm: 937634 1 Tablet(s) PO QD 02/27/2011 012 Inactive propranolol 60 mg Tab RxNorm: 742646 1 Tablet(s) PO BID 02/19/2011 Inactive omeprazole 40 mg capsule,delayed release RxNorm: 455157 1 Capsu le(s) PO BID 01/24/2011 05/23/2011 Inactive clindamycin 300 mg capsule RxNorm: 092469 1 Capsule(s) PO TID 01/2402/02/2011 Inactive propranolol 60 mg Tab RxNorm: 014623 1 Tablet(s) PO BID 01/22/2011 No Stop Date Active nystatin 100,000 unit/g Topical Cream RxNorm: 149130 Applicatio n TOP BID 01/15/2011 01/14/2011 Inactive to rash for 2-4 week s Diflucan 200 mg Tab RxNorm: 915161 1 Tablet(s) PO QD 01/15/201101/28 Inactive buspirone 10 mg Tab RxNorm: 337278 1 Tablet(s) PO BID 01/08/201103/05 Inactive Valium 10 mg Tab RxNorm: 104826 1 Tablet(s) PO QHS 01/05/2011 012 Inactive Diflucan 200 mg Tab RxNorm: 718596 1 Tablet(s) PO QD 01/01/201101/14 Inactive Diflucan 200 mg Tab RxNorm: 962607 1 Tablet(s) PO QD 12/18/201012/31 Inactive Valium 10 mg Tab RxNorm: 162074 1 Tablet(s) PO QHS 12/12/2010 011 Inactive Diflucan 200 mg Tab RxNorm: 963076 1 Tablet(s) PO QD 12/07/201012/18 Inactive Aricept 10 mg Tab RxNorm: 695321 1 Tablet(s) PO QD 11/20/2010 011 Inactive ropinirole 1 mg Tab RxNorm: 012029 1 Tablet(s) PO QHS 11/16/201005/03 Inactive enalapril maleate 5 mg Tab RxNorm: 768512 1 Tablet(s) PO QD 011 05/20/2018 Inactive buspirone 10 mg Tab RxNorm: 231688 1 Tablet(s) PO BID 11/16/201012/02 Inactive Valium 10 mg Tab RxNorm: 980222 1 Tablet(s) PO QHS 11/07/2010 011 Inactive Pyridium 100 mg Tab RxNorm: 4815386 1 Tablet(s) PO TID 11/02/201004/2010 Inactive Macrobid 100 mg Cap RxNorm: 8781571 1 Capsule(s) PO BID 11/02/2010 Inactive buspirone 10 mg Tab RxNorm: 508552 1 Tablet(s) PO QHS 10/18/201005/02 Inactive propranolol 60 mg Tab RxNorm: 561205 1 Tablet(s) PO BID 09/18/2010 Inactive Valium 10 mg Tab RxNorm: 407285 1 Tablet(s) PO QHS 09/05/2010 011 Inactive Aricept 10 mg Tab RxNorm: 147849 1 Tablet(s) PO QD 08/14/2010 011 Inactive Valium 10 mg Tab RxNorm: 530569 1 Tablet(s) PO QHS 06/26/2010 011 Inactive ropinirole 1 mg Tab RxNorm: 359587 1 Tablet(s) PO QHS 06/19/201010/02 Inactive omeprazole 40 mg Cap, delayed release RxNorm: 164128 1 Capsule( s) PO QD 06/07/2010 10/04/2010 Inactive Endocet 10 mg-325 mg Tab RxNorm: 9955109 1 Tablet(s) PO QID as needed for severe pain 06/07/2010 03/07/2011 Inactive Endocet 10 mg-325 mg Tab RxNorm: 9992663 1 Tablet(s) PO QID as needed for severe pain 05/04/2010 06/02/2010 Inactive Valium 10 mg Tab RxNorm: 692581 1 Tablet(s) PO QHS 05/01/2010 011 Inactive propranolol 60 mg Tab RxNorm: 691962 1 Tablet(s) PO BID 04/03/2010 Inactive Valium 10 mg Tab RxNorm: 059050 1 Tablet(s) PO QHS 03/28/2010 011 Inactive omeprazole 40 mg Cap, Delayed Release RxNorm: 576775 1 Capsule( s) PO QD 03/28/2010 06/06/2010 Inactive Endocet 10 mg-325 mg Tab RxNorm: 3382825 1 Tablet(s) PO QID prn ari n 03/27/2010 05/20/2018 Inactive Valium 10 mg Tab RxNorm: 016190 1 Tablet(s) PO QHS 02/20/2010 011 Inactive Diflucan 100 mg Tab RxNorm: 266641 1 Tablet(s) PO BID 01/23/201003/2009 Inactive Diflucan 100 mg Tab RxNorm: 819099 1 Tablet(s) PO BID 01/05/201001/02 Inactive Aricept 10 mg Tab RxNorm: 249743 1 Tablet(s) PO QD 12/01/2009 011 Inactive OxyContin 20 mg 12 hr Tab RxNorm: 3179357 1 Tablet(s) PO BID 200904/05/2010 Inactive oxycodone-acetaminophen 10 mg-325 mg Tab RxNorm: 9898721 1 Table t(s) PO Q4H 11/22/2009 11/26/2009 Inactive Phenergan 25 mg Tab RxNorm: 173419 1 Tablet(s) PO PRN MIGRAINE 11/0303/07/2011 Inactive Demerol 100 mg Tab RxNorm: 398826 1 Tablet(s) PO PRN MIGRAINE 11/2203/07/2011 Inactive Oxycodone-Acetaminophen 10 mg-325 mg Tab RxNorm: 8745521 1 Table t(s) PO Q4H 10/11/2009 10/15/2009 Inactive Percocet 10 mg-325 mg Tab RxNorm: 6214274 1 Tablet(s) PO Q4H 200910/24/2009 Inactive propranolol 60 mg Tab RxNorm: 165301 1 Tablet(s) PO BID 08/29/2009 Inactive Valium 10 mg Tab RxNorm: 562040 1 Tablet(s) PO QHS 08/16/2009 010 Inactive Keflex 500 mg Cap RxNorm: 863778 1 Capsule(s) PO BID 07/25/200907/31 Inactive Hydroxyzine 25 mg Tab RxNorm: 374255 1 Tablet(s) PO TID 07/25/2009 Inactive Prednisone 20 mg Tab RxNorm: 810505 1 Tablet(s) PO BID 07/25/2009 Inactive Demerol 100 mg Tab RxNorm: 686220 1 Tablet(s) PO PRN MIGRAINE 07/25 No Stop Date Active Ropinirole 1 mg Tab RxNorm: 548867 1 Tablet(s) PO HS 07/20/200902/14 Inactive Valium 10 mg Tab RxNorm: 032484 1 Tablet(s) PO QHS 07/18/2009 010 Inactive Endocet 10 mg-325 mg Tab RxNorm: 5529311 1 Tablet(s) PO TID 010 07/07/2009 Inactive Demerol 100 mg Tab RxNorm: 547586 1 Tablet(s) PO PRN MIGRAINE 06/08 No Stop Date Active Ropinirole 1 mg Tab RxNorm: 475030 1 Tablet(s) PO HS 05/16/200907/14 Inactive ipratropium-albuterol 0.5 mg-3 mg(2.5 mg base)/3 mL ne bulization soln RxNorm: 7546864 1 Unit Dose INH Q4H as needed No Start Date Active MagOx 400 mg (241.3 mg magnesium) tablet RxNorm: 298678 1 Table t(s) PO BID No Start Date Active Vitamin B12 1000mcg Tablet RxNorm: 1 Tablet(s) PO QD No Start Date Active Vitamin D3 5,000 unit tablet RxNorm: 638611 1 Tablet(s) PO QD No Star t Date Active Tylenol Arthritis Pain 650 mg tablet,extended release RxNorm : 5954327 1 Tablet(s) PO Q4H No Start Date Active Lotrimin AF 2 % topical powder RxNorm: 252471 1 Application TOP BID No Start Date Active enalapril maleate 5 mg Tab RxNorm: 959265 1 Tablet(s) PO QD No Star t Date 07/20/2012 Inactive Demerol 100 mg Tab RxNorm: 735848 Tablet(s) PO PRN MIGRAINE No Star t Date 06/02/2009 Inactive metformin 500 mg tablet RxNorm: 665437 1 Tablet(s) PO QD No Start D ate 04/05/2013 Inactive Breo Ellipta 100 mcg-25 mcg/dose powder for inhalation RxNor m: 7332196 1 Puff(s) INH BID No Start Date 01/04/2016 Inactive Mag-Oxide 400 mg Tab RxNorm: 412488 1 Tablet(s) PO QD No Start Date 0 07/21/2012 Inactive Cipro 500 mg Tab RxNorm: 264968 1 Tablet(s) PO QD No Start Date 04/05 Inactive Ativan 0.5 mg tablet RxNorm: 521809 1 Tablet(s) PO TID as needed No Start Date 05/06/2019 Inactive melatonin 3 mg tablet RxNorm: 645288 2 Tablet(s) PO QHS No Start Da te 08/19/2018 Inactive buspirone 10 mg Tab RxNorm: 920381 1 Tablet(s) PO QD No Start Date Inactive sucralfate 100 mg/mL Oral Susp RxNorm: 143500 2 Teaspoon(s) PO QID No Start Date 07/21/2012 Inactive hydrocodone 5 mg-acetaminophen 325 mg tablet RxNorm: 514094 1 Tablet(s) PO Q4H as needed No Start Date 08/19/2018 Inactive Amaryl 2 mg tablet RxNorm: 940534 1 Tablet(s) PO BID No Start Date Inactive OxyContin 20 mg 12 hr Tab RxNorm: 0187798 1 Tablet(s) PO BID No Sta rt Date 11/27/2009 Inactive propranolol 40 mg tablet RxNorm: 415884 1 Tablet(s) PO QID No Start Date 01/19/2018 Inactive Trazadone 150 mg Tablet RxNorm: 1-2 Tablet(s) PO QHS prn sleep No Start Date 08/09/2010 Inactive propranolol 60 mg Tab RxNorm: 544131 1/2 Tablet(s) PO BID No Start Date 01/21/2011 Inactive insulin NPH and regular human subcutaneous RxNorm: 9872615 subcu taneous No Start Date 11/20/2018 Inactive Ativan 0.5 mg tablet RxNorm: 607693 1 Tablet(s) PO QID No Start Date 06/18/2016 Inactive Vasotec 5 mg Tab RxNorm: 285018 1 Tablet(s) PO BID No Start Date 06/2011 Inactive Toprol XL 50 mg tablet,extended release RxNorm: 774769 1 Tablet (s) PO BID No Start Date 04/05/2013 Inactive Ativan 0.5 mg tablet RxNorm: 297433 1 Tablet(s) PO TID No Start Date 05/25/2016 Inactive Klor-Con M20 20 mEq Tab RxNorm: 3192988 1 Tablet(s) PO QD No Start Date 03/19/2011 Inactive sumatriptan 100 mg tablet RxNorm: 669889 1 Tablet(s) PO at headache onset--repeat in 2hrs if remains No Start Date 07/21/2012 Inactive propranolol 60 mg Tab RxNorm: 928217 1 Tablet(s) PO BID No Start Da te 08/28/2009 Inactive Cholestyramine Light 4 gram Oral Powder RxNorm: 1430251 1 Unit Dose PO QD in water No Start Date 07/21/2012 Inactive nystatin 100,000 unit/g Topical Powder RxNorm: 518083 Applicati on TOP BID No Start Date 07/21/2012 Inactive vitamin S45-yrszk acid sublingual RxNorm: sublingual No Start Date 07/05/2013 Inactive cyclobenzaprine 5 mg tablet RxNorm: 230160 1/2-1 Tablet (s) PO TID as needed for muscle spasm No Start Date 07/18/2017 Inactive tramadol 50 mg tablet RxNorm: 121645 2 Tablet(s) PO TID as need ed for pain No Start Date 09/01/2014 Inactive aspirin 81 mg Tab RxNorm: 206262 1 Tablet(s) PO QOD No Start Date 04/2013 Inactive Vitamin B12 1000mcg Tablet RxNorm: 1 Tablet(s) PO QD No Start Date 07/18/2017 Inactive cholestyramine (with sugar) 4 gram oral powder RxNorm: 49455 3 1 Unit(s) PO QD as needed No Start Date 05/20/2018 Inactive ProAir HFA 90 mcg/Actuation Aerosol Inhaler RxNorm: 902816 2 Puff(s) INH Q4H prn shortness of breath No Start Date 07/21/2012 Inactive pravastatin 10 mg Tab RxNorm: 392580 1 Tablet(s) PO QD No Start Date 07/21/2012 Inactive gabapentin 800 mg Tab RxNorm: 922155 1 Tablet(s) PO BID No Start Da te 06/03/2011 Inactive Endocet 10 mg-325 mg Tab RxNorm: 9611026 1 Tablet(s) PO TID No Star t Date 06/02/2009 Inactive Naproxen 500 mg Tab RxNorm: 860440 1 Tablet(s) PO BID No Start Date 0 04/05/2010 Inactive Valium 10 mg Tab RxNorm: 812618 1 Tablet(s) PO BID No Start Date 07/04 Inactive enalapril maleate 5 mg Tab RxNorm: 707425 1 Tablet(s) PO QD No Star t Date 11/15/2010 Inactive doxepin 10 mg capsule RxNorm: 5901108 2 Capsule(s) PO QHS No Start Date 09/17/2018 Inactive MS Contin 15 mg Tab RxNorm: 954032 1 Tablet(s) PO BID No Start Date 0 09/18/2010 Inactive buspirone 5 mg tablet RxNorm: 255095 1 Tablet(s) PO TID No Start Da te 12/01/2013 Inactive [place] 3 Fish Oil Cap RxNorm: 1 Capsule(s) PO QD No Start Date 07/03 Inactive enalapril maleate 5 mg Tab RxNorm: 754340 1/2 Tablet(s) PO QD No St art Date 03/07/2011 Inactive Lyrica 75 mg capsule RxNorm: 024330 1 Capsule(s) PO QHS No Start Da te 02/08/2014 Inactive Lopressor 100 mg tablet RxNorm: 889445 1 Tablet(s) PO BID No Start Date 06/08/2018 Inactive Lantus Solostar U-100 Insulin 100 unit/mL (3 mL) subcu taneous pen RxNorm: 457141 45 Unit(s) SQ QAM No Start Date 05/20/2018 Inactive aspirin 81 mg tablet RxNorm: 812702 1 Tablet(s) PO QD No Start Date 0 09/14/2015 Inactive diltiazem CD 240 mg capsule,extended release 24 hr RxNorm: 8 40341 1 Capsule(s) PO QD No Start Date 05/25/2019 Inactive insulin NPH isophane U-100 human subcutaneous RxNorm: 957891 beckwith bcutaneous No Start Date 04/20/2019 Inactive sumatriptan 100 mg tablet RxNorm: 850204 1 Tablet(s) PO at headache onset. May repeat 1 in two hours if headache remains. Max of 2 per 24 hours No Start Date 04/01/2018 Inactive gabapentin 300 mg capsule RxNorm: 687959 1 Capsule(s) PO QHS No Sta rt Date 02/04/2018 Inactive Topamax 25 mg Tab RxNorm: 389870 Oral No Start Date 03/07/2011 In active Senokot-S 8.6 mg-50 mg Tab RxNorm: 4934382 1 Tablet(s) PO QD No Sta rt Date 03/07/2011 Inactive metformin ER 500 mg 24 hr tablet,extended release RxNorm: 18 81366 1 Tablet(s) PO QD No Start Date 05/20/2018 Inactive Symbicort 80 mcg-4.5 mcg/actuation HFA Aerosol Inhaler RxNor m: 2550787 2 Puff(s) INH BID No Start Date 04/05/2013 Inactive metoprolol tartrate 25 mg tablet RxNorm: 351219 1 Tablet(s) PO BID No Start Date 05/20/2019 Inactive propranolol 60 mg Tab RxNorm: 290471 1/2 Tablet(s) PO BID No Start Date 07/21/2012 Inactive metformin ER 500 mg 24 hr tablet,extended release RxNorm: 18 77706 2 Tablet(s) PO QD No Start Date 12/16/2017 Inactive Insulin Syringe 1 mL 29 gauge x 1/2" RxNorm: 2 s yringes daily with insulin Dx: E11.65 No Start Date 10/07/2018 Inactive Amitriptyline 75 mg Tab RxNorm: 160479 1 Tablet(s) PO QHS No Start Date 10/23/2009 Inactive donepezil 10 mg Tab RxNorm: 143130 1 Tablet(s) PO QD No Start Date Inactive Lantus Solostar U-100 Insulin 100 unit/mL (3 mL) subcu taneous pen RxNorm: 112755 36 Unit(s) SQ QAM No Start Date 12/24/2017 Inactive Miacalcin 200 unit/Actuation Nasal [place] Aerosol RxNorm: 261 204 1 [place] NASAL QD Alternate nostrils each day No Start Date 04/05/2010 Inactive Amitriptyline 150 mg Tab RxNorm: 622354 1 Tablet(s) PO QHS No Start Date 01/04/2010 Inactive Bystolic 5 mg tablet RxNorm: 984990 1 Tablet(s) PO QD No Start Date 0 08/13/2012 Inactive Aricept 10 mg Tab RxNorm: 853396 1 Tablet(s) PO QD No Start Date 11/03 Inactive Lantus Solostar U-100 Insulin 100 unit/mL (3 mL) subcu taneous pen RxNorm: 728337 50 Unit(s) SQ QAM No Start Date 08/27/2018 Inactive albuterol sulfate 2.5 mg/3 mL (0.083 %) Neb Solution RxNorm: 967352 1 Unit Dose INH QID as needed No Start Date 08/23/2015 Inactive Symbicort 160 mcg-4.5 mcg/actuation HFA Aerosol Inhaler RxNo rm: 4013122 2 Puff(s) INH BID No Start Date 12/03/2011 Inactive [place] 50 mg Tab RxNorm: 958874 1 Tablet(s) PO BID No Start Date 04/2010 Inactive amitriptyline 100 mg Tab RxNorm: 166535 1 1/2 Tablet(s) PO QHS No S tart Date 06/19/2011 Inactive nystatin 100,000 unit/g Topical Cream RxNorm: 932698 Ap plication TOP BID to rash for 2-4 weeks No Start Date 01/14/2011 Inactive Trelegy Ellipta 100 mcg-62.5 mcg-25 mcg powder for inhalatio n RxNorm: 3446196 1 Puff(s) INH QD No Start Date 12/16/2017 Inactive Lyrica 150 mg capsule RxNorm: 242034 1 Capsule(s) PO QHS No Start D ate 12/04/2015 Inactive sennosides 8.6 mg tablet RxNorm: 704969 1 Tablet(s) PO BID No Start Date 09/07/2018 Inactive metformin ER 500 mg tablet,extended release 24 hr RxNorm: 86 0975 1 Tablet(s) PO QD No Start Date 10/22/2017 Inactive Fish Oil 1,000 mg Cap RxNorm: 1 Capsule(s) PO QD No Start Date 06/2011 Inactive Zyrtec 10 mg Tab RxNorm: 3767978 1 Tablet(s) PO QD No Start Date 07/03 Inactive albuterol sulfate HFA 90 mcg/actuation aerosol inhaler RxNor m: 6841744 2 Puff(s) INH Q4H as needed for cough No Start Date 09/30/2013 Inactive trazodone 150 mg tablet RxNorm: 820496 1 Tablet(s) PO QHS No Start Date 07/21/2012 Inactive Spiriva with HandiHaler 18 mcg & inhalation capsules RxNorm: 724311 1 Capsule(s) INH QD No Start Date 04/05/2013 Inactive Coreg 3.125 mg Tab RxNorm: 377405 1 Tablet(s) PO BID No Start Date Inactive Phenergan 25 mg Tab RxNorm: 395127 Tablet(s) PO PRN MIGRAINE No Sta rt Date 11/21/2009 Inactive Vitamin D 50,000 unit Cap RxNorm: 5484558 1 Capsule(s) PO QW No Sta rt Date 03/07/2011 Inactive Januvia 100 mg tablet RxNorm: 319575 1 Tablet(s) PO QD No Start Date 10/25/2015 Inactive Eliquis 5 mg tablet RxNorm: 6107031 1 Tablet(s) PO BID No Start Date 08/19/2018 Inactive Advair Diskus 500 mcg-50 mcg/Dose for Inhalation RxNorm: 782308 1 INH BID No Start Date 07/21/2012 Inactive Vitamin D3 5,000 unit tablet RxNorm: 316346 1 Tablet(s) PO QD No St art Date 07/18/2017 Inactive Amaryl 2 mg tablet RxNorm: 232570 1 Tablet(s) PO QD No Start Date 06/2015 Inactive Actos 30 mg tablet RxNorm: 661426 1 Tablet(s) PO QD No Start Date Inactive promethazine 25 mg tablet RxNorm: 551285 1 Tablet(s) PO Q4H prn N/V No Start Date 07/21/2012 Inactive ProAir HFA 90 mcg/actuation Aerosol Inhaler RxNorm: 732844 2 Puff(s) INH Q4H prn dyspnea No Start Date 07/21/2012 Inactive Dexilant 60 mg Capsule RxNorm: 690698 1 Capsule(s) PO QD No Start D ate 01/27/2012 Inactive Lantus Solostar U-100 Insulin 100 unit/mL (3 mL) subcu taneous pen RxNorm: 320266 38 Unit(s) SQ QAM No Start Date 05/20/2018 Inactive Valium 10 mg Tab RxNorm: 747735 1 Tablet(s) PO QHS AND PRN No Start Date 10/24/2009 Inactive ZOFRAN ODT 8 mg disintegrating tablet RxNorm: 724091 1 Tablet(s ) PO Q6H No Start [...] Date S ervice Location MICROALBUMIN URINE RANDOM 07959 MICRL MG/L 14.9 MG/L Unknown MICROALBUMIN URINE RANDOM 86550 XM.ALB/CRE 6.1 MG/GCR Unknown MICROALBUMIN URINE RANDOM 04669 CREAT MG/D 243 MG/DL Unknown MICROALBUMIN URINE RANDOM 64219 CRE/100 2.43 G/L 03/05 Unknown PROTEIN/CREAT URINE WITH RATIO 00770|65174 PROT R U 14 MG/D L 04/01/2014 Unknown PROTEIN/CREAT URINE WITH RATIO 99695|57659 CREAT R U 254 MG/ DL 04/01/2014 Unknown PROTEIN/CREAT URINE WITH RATIO 74655|93253 XRATIO P/C 55 MG/ G 04/01/2014 Unknown URINALYSIS 32276 PROTEIN UR NEG 04/28/2010 Unknown URINALYSIS 89865 HEMGLBN UR NEG 04/28/2010 Unknown URINALYSIS 41513 GLUCOSE UR NEG 04/28/2010 Unknown URINALYSIS 23480 KETONES UR NEG 04/28/2010 Unknown URINALYSIS 90178 PH U 5.5 04/28/2010 Unknown URINALYSIS 63166 SP GR U 1.025 04/28/2010 Unknown URINALYSIS 74322 BILRUBN UR NEG 04/28/2010 Unknown URINALYSIS 99438 LEUKO UR 2+ 04/28/2010 Unknown URINALYSIS 03433 NITRITE UR NEG 04/28/2010 Unknown MICR CUL? [id number] WBC/HPF 6-10 04/28/2010 Unknown MICR CUL? [id number] RBC/HPF 0-5 04/28/2010 Unknown MICR CUL? [id number] HYAL CAST 16-25 04/28/2010 Unknown MICR CUL? [id number] SP TO YOLIE? NO 04/28/2010 Unknown MICR CUL? [id number] APPEAR UR NORMAL 04/28/2010 Unknown MICR CUL? [id number] SQ EPI/LPF FEW 04/28/2010 Unknown Procedures Procedure Codes Date URINALYSIS NONAUTO W/O SCOPE CPT-4: 54695 04/16/2019 URINE CULTURE/ COLONY COUNT CPT-4: 07996 04/16/2019 CEFTRIAXONE SODIUM INJECTION CPT-4: J0696 04/16/2019 THER/PROPH/DIAG INJ SC/IM CPT-4: 55572 04/16/2019 DRAIN/INJECT JOINT/BURSA CPT-4: 20609 01/22/2019 TRIAMCINOLONE ACET INJ NOS CPT-4: J3301 01/22/2019 DEXAMETHASONE SODIUM PHOS CPT-4: J1100 01/22/2019 URINE CULTURE/ COLONY COUNT CPT-4: 67853 01/07/2019 URINALYSIS NONAUTO W/O SCOPE CPT-4: 91805 01/07/2019 CEFTRIAXONE SODIUM INJECTION CPT-4: J0696 01/07/2019 THER/PROPH/DIAG INJ SC/IM CPT-4: 36509 01/07/2019 FLU VACC PRSV FREE INC ANTIG 65 AND OLDER CPT-4: 24816 12/24/2018 FLU VACC PRSV FREE INC ANTIG 65 AND OLDER CPT-4: 96223 12/24/2018 ADMIN INFLUENZA VIRUS VAC CPT-4: G0008 12/24/2018 THER/PROPH/DIAG INJ SC/IM CPT-4: 18858 11/04/2018 KETOROLAC TROMETHAMINE INJ CPT-4: J1885 11/04/2018 PROMETHAZINE HCL INJECTION CPT-4: J2550 11/04/2018 PPPS, subseq visit CPT-4: G0439 09/18/2018 THER/PROPH/DIAG INJ SC/IM CPT-4: 68670 04/01/2018 KETOROLAC TROMETHAMINE INJ CPT-4: J1885 04/01/2018 PROMETHAZINE HCL INJECTION CPT-4: J2550 04/01/2018 URINE CULTURE/ COLONY COUNT CPT-4: 66127 03/17/2018 URINALYSIS NONAUTO W/O SCOPE CPT-4: 37073 03/17/2018 FLU VACC PRSV FREE INC ANTIG 65 AND OLDER CPT-4: 73931 12/17/2017 PNEUMOCOCCAL VACC 23 RANDALL IM CPT-4: 23081 12/17/2017 ADMIN INFLUENZA VIRUS VAC CPT-4: G0008 12/17/2017 ADMIN PNEUMOCOCCAL VACCINE CPT-4: G0009 12/17/2017 PPPS, subseq visit CPT-4: G0439 09/17/2017 THER/PROPH/DIAG INJ SC/IM CPT-4: 27164 08/26/2017 KETOROLAC TROMETHAMINE INJ CPT-4: J1885 08/26/2017 PROMETHAZINE HCL INJECTION CPT-4: J2550 08/26/2017 URINALYSIS NONAUTO W/O SCOPE CPT-4: 90588 07/19/2017 URINE CULTURE/ COLONY COUNT CPT-4: 59797 07/19/2017 CEFTRIAXONE SODIUM INJECTION CPT-4: J0696 07/19/2017 THER/PROPH/DIAG INJ SC/IM CPT-4: 32791 07/19/2017 THER/PROPH/DIAG INJ SC/IM CPT-4: 38994 07/19/2017 TRIAMCINOLONE ACET INJ NOS CPT-4: J3301 07/19/2017 PRESCRIP TRANSMIT VIA ERX SY CPT-4: G8553 05/07/2017 PRESCRIP TRANSMIT VIA ERX SY CPT-4: G8553 02/22/2017 PRESCRIP TRANSMIT VIA ERX SY CPT-4: G8553 01/23/2017 FLU VACC PRSV FREE INC ANTIG 65 AND OLDER CPT-4: 16283 12/20/2016 PNEUMOCOCCAL VACC 13 RANDALL IM CPT-4: 40568 12/20/2016 ADMIN INFLUENZA VIRUS VAC CPT-4: G0008 12/20/2016 ADMIN PNEUMOCOCCAL VACCINE CPT-4: G0009 12/20/2016 URINALYSIS NONAUTO W/O SCOPE CPT-4: 43303 10/08/2016 URINE CULTURE/ COLONY COUNT CPT-4: 22897 10/08/2016 PRESCRIP TRANSMIT VIA ERX SY CPT-4: G8553 10/08/2016 PRESCRIP TRANSMIT VIA ERX SY CPT-4: G8553 09/19/2016 PRESCRIP TRANSMIT VIA ERX SY CPT-4: G8553 08/20/2016 PRESCRIP TRANSMIT VIA ERX SY CPT-4: G8553 02/29/2016 KETOROLAC TROMETHAMINE INJ CPT-4: J1885 02/02/2016 THER/PROPH/DIAG INJ SC/IM CPT-4: 47864 02/02/2016 PROMETHAZINE HCL INJECTION CPT-4: J2550 02/02/2016 PRESCRIP TRANSMIT VIA ERX SY CPT-4: G8553 02/02/2016 FLU VACC PRSV FREE INC ANTIG 65 AND OLDER CPT-4: 77814 01/05/2016 PPPS, subseq visit CPT-4: G0439 01/05/2016 ADMIN INFLUENZA VIRUS VAC CPT-4: G0008 01/05/2016 URINE CULTURE/ COLONY COUNT CPT-4: 37995 12/05/2015 URINALYSIS NONAUTO W/O SCOPE CPT-4: 82397 12/05/2015 PRESCRIP TRANSMIT VIA ERX SY CPT-4: G8553 12/05/2015 PRESCRIP TRANSMIT VIA ERX SY CPT-4: G8553 10/26/2015 URINALYSIS NONAUTO W/O SCOPE CPT-4: 38828 10/05/2015 URINE CULTURE/ COLONY COUNT CPT-4: 24340 10/05/2015 PRESCRIP TRANSMIT VIA ERX SY CPT-4: G8553 10/05/2015 MD SERVICE REQUIRED FOR PMD CPT-4: G0372 09/15/2015 PRESCRIP TRANSMIT VIA ERX SY CPT-4: G8553 09/15/2015 SPECIAL REPORTS OR FORMS CPT-4: 69243 08/25/2015 PRESCRIP TRANSMIT VIA ERX SY CPT-4: G8553 07/05/2015 URINALYSIS NONAUTO W/O SCOPE CPT-4: 60994 03/30/2015 ASSAY, GLUCOSE, BLOOD QUANT CPT-4: 37968 03/30/2015 URINE CULTURE/ COLONY COUNT CPT-4: 86368 03/30/2015 PRESCRIP TRANSMIT VIA ERX SY CPT-4: G8553 03/30/2015 PRESCRIP TRANSMIT VIA ERX SY CPT-4: G8553 02/03/2015 FLU VACC PRSV FREE INC ANTIG 65 AND OLDER CPT-4: 87679 12/29/2014 ADMIN INFLUENZA VIRUS VAC CPT-4: G0008 12/29/2014 PRESCRIP TRANSMIT VIA ERX SY CPT-4: G8553 12/29/2014 PRESCRIP TRANSMIT VIA ERX SY CPT-4: G8553 09/02/2014 PROTEIN/CREAT URINE WITH RATIO CPT-4: 79356|[id number] 5 MICROALBUMIN QUANTITATIVE CPT-4: 90323 04/01/2014 PRESCRIP TRANSMIT VIA ERX SY CPT-4: G8553 03/16/2014 PRESCRIP TRANSMIT VIA ERX SY CPT-4: G8553 03/09/2014 THER/PROPH/DIAG INJ SC/IM CPT-4: 12777 03/01/2014 TRIAMCINOLONE ACET INJ NOS CPT-4: J3301 03/01/2014 PRESCRIP TRANSMIT VIA ERX SY CPT-4: G8553 02/09/2014 URINE CULTURE/ COLONY COUNT CPT-4: 00390 10/30/2013 URINALYSIS NONAUTO W/O SCOPE CPT-4: 46866 10/21/2013 URINE CULTURE/ COLONY COUNT CPT-4: 25598 10/21/2013 DESTRUCT PREMALG LESION (Cryosurgery) CPT-4: 57543 PRESCRIP TRANSMIT VIA ERX SY CPT-4: G8553 10/05/2013 URINALYSIS NONAUTO W/O SCOPE CPT-4: 77851 08/04/2013 URINE CULTURE/ COLONY COUNT CPT-4: 25555 08/04/2013 PRESCRIP TRANSMIT VIA ERX SY CPT-4: G8553 08/04/2013 THER/PROPH/DIAG INJ SC/IM CPT-4: 05165 07/13/2013 TRIAMCINOLONE ACET INJ NOS CPT-4: J3301 07/13/2013 PRESCRIP TRANSMIT VIA ERX SY CPT-4: G8553 05/27/2013 URINALYSIS NONAUTO W/O SCOPE CPT-4: 47141 05/25/2013 URINE CULTURE/ COLONY COUNT CPT-4: 64536 05/25/2013 THER/PROPH/DIAG INJ SC/IM CPT-4: 34529 05/04/2013 VITAMIN B12 INJECTION CPT-4: J3420 05/04/2013 THER/PROPH/DIAG INJ SC/IM CPT-4: 02900 04/17/2013 VITAMIN B12 INJECTION CPT-4: J3420 04/17/2013 THER/PROPH/DIAG INJ SC/IM CPT-4: 06196 04/17/2013 METHYLPREDNISOLONE 40 MG INJ CPT-4: J1030 04/17/2013 TRIAMCINOLONE ACET INJ NOS CPT-4: J3301 04/17/2013 URINALYSIS NONAUTO W/O SCOPE CPT-4: 45627 04/06/2013 URINE CULTURE/ COLONY COUNT CPT-4: 33508 04/06/2013 PRESCRIP TRANSMIT VIA ERX SY CPT-4: G8553 04/06/2013 KETOROLAC TROMETHAMINE INJ CPT-4: J1885 06/25/2012 PROMETHAZINE HCL INJECTION CPT-4: J2550 06/25/2012 THER/PROPH/DIAG INJ SC/IM CPT-4: 38133 06/25/2012 THER/PROPH/DIAG INJ SC/IM CPT-4: 33212 06/24/2012 METHYLPREDNISOLONE 40 MG INJ CPT-4: J1030 06/24/2012 TRIAMCINOLONE ACET INJ NOS CPT-4: J3301 06/24/2012 URINE CULTURE/ COLONY COUNT CPT-4: 52466 06/24/2012 THER/PROPH/DIAG INJ SC/IM CPT-4: 82964 05/20/2012 KETOROLAC TROMETHAMINE INJ CPT-4: J1885 05/20/2012 THER/PROPH/DIAG INJ SC/IM CPT-4: 50272 05/20/2012 PROMETHAZINE HCL INJECTION CPT-4: J2550 05/20/2012 DRAIN/INJECT JOINT/BURSA CPT-4: 40201 02/13/2012 METHYLPREDNISOLONE 40 MG INJ CPT-4: J1030 02/13/2012 TRIAMCINOLONE ACET INJ NOS CPT-4: J3301 02/13/2012 THER/PROPH/DIAG INJ SC/IM CPT-4: 12214 11/14/2011 METHYLPREDNISOLONE 40 MG INJ CPT-4: J1030 11/14/2011 TRIAMCINOLONE ACET INJ NOS CPT-4: J3301 11/14/2011 THER/PROPH/DIAG INJ SC/IM CPT-4: 92202 09/12/2011 KETOROLAC TROMETHAMINE INJ CPT-4: J1885 09/12/2011 THER/PROPH/DIAG INJ SC/IM CPT-4: 48149 08/09/2011 METHYLPREDNISOLONE 40 MG INJ CPT-4: J1030 08/09/2011 TRIAMCINOLONE ACET INJ NOS CPT-4: J3301 08/09/2011 URINE CULTURE/ COLONY COUNT CPT-4: 65380 07/03/2011 URINE CULTURE/ COLONY COUNT CPT-4: 73399 06/04/2011 THER/PROPH/DIAG INJ SC/IM CPT-4: 99555 05/03/2011 METHYLPREDNISOLONE 40 MG INJ CPT-4: J1030 05/03/2011 TRIAMCINOLONE ACET INJ NOS CPT-4: J3301 05/03/2011 URINALYSIS NONAUTO W/O SCOPE CPT-4: 27923 01/24/2011 URINE CULTURE/ COLONY COUNT CPT-4: 54726 01/24/2011 FLUZONE, 5ML (Medicare) CPT-4: Q2038 01/02/2011 ADMIN INFLUENZA VIRUS VAC CPT-4: G0008 01/02/2011 ASSAY, GLUCOSE, BLOOD QUANT CPT-4: 78675 12/07/2010 URINE CULTURE/ COLONY COUNT CPT-4: 17580 11/02/2010 THER/PROPH/DIAG INJ SC/IM CPT-4: 46693 10/18/2010 METHYLPREDNISOLONE 40 MG INJ CPT-4: J1030 10/18/2010 TRIAMCINOLONE ACET INJ NOS CPT-4: J3301 10/18/2010 TRIAMCINOLONE ACET INJ NOS CPT-4: J3301 05/11/2010 METHYLPREDNISOLONE 40 MG INJ CPT-4: J1030 05/11/2010 THER/PROPH/DIAG INJ SC/IM CPT-4: 22542 05/11/2010 TRIAMCINOLONE ACET INJ NOS CPT-4: J3301 02/09/2010 METHYLPREDNISOLONE 40 MG INJ CPT-4: J1030 02/09/2010 THER/PROPH/DIAG INJ SC/IM CPT-4: 31844 02/09/2010 SERVICE REQUIRED FOR PMD CPT-4: G0372 02/09/2010 FLU VACCINE 3 YRS & > IM UP 64 CPT-4: 34070 0 PNEUMOCOCCAL VACC 23 RANDALL IM CPT-4: 19442 12/07/2009 ADMIN INFLUENZA VIRUS VAC CPT-4: G0008 12/07/2009 ADMIN PNEUMOCOCCAL VACCINE CPT-4: G0009 12/07/2009 TRIAMCINOLONE ACET INJ NOS CPT-4: J3301 05/26/2009 THER/PROPH/DIAG INJ SC/IM CPT-4: 97202 05/26/2009 METHYLPREDNISOLONE 80 MG INJ CPT-4: J1040 [...] 1: 114/72 Code: 8480-6 BMI: 37.8 Code: 01482-5 Heart Rate 1: 72 bpm Height: 5'3" [...] 1: 106/68 Code: 8480-6 BMI: 35.7 Code: 47213-9 Heart Rate 1: 72 bpm Height: 5'4" Respiratory Rate: 20 bpm SpO2: 98% Tempera ture: 36.7 (C) / 98.0 (F) Weight: 208 lbs 04/16/2018 Blood Pressure 1: 132/82 Code: 8480-6 BMI: 37.9 Code: 00538-1 Heart Rate 1: 72 bpm Height: 5'4" Respiratory Rate: 20 bpm SpO2: 96% Tempera ture: 37.1 (C) / 98.8 (F) Weight: 221 lbs 04/01/2018 Blood Pressure 1: 150/90 Code: 8480-6 Heart Rate 1: 72 bpm Respiratory Rate: 22 bpm SpO2: 95% Temperature: 36.4 (C) / 97.6 (F) We ight: 216 lbs 03/06/2018 Blood Pressure 1: 126/78 Code: 8480-6 BMI: 37.4 Code: 98189-9 Heart Rate 1: 68 bpm Height: 5'4" [...] ight: 222 lbs 12/25/2017 BMI: 37.8 Code: 24999-8 Heart Rate 1: 76 bpm Height: 5 '4" Respiratory Rate: 20 bpm SpO2: 96% Temperature: 37.3 (C) / 99.2 (F) Weight: 220 lbs 12/17/2017 Blood Pressure 1: 132/78 Code: 8480-6 BMI: 37.2 Code: 05029-5 Heart Rate 1: 88 bpm Height: 5'4" Respiratory Rate: 20 bpm SpO2: 96% Tempera ture: 37.3 (C) / 99.2 (F) Weight: 217 lbs 10/30/2017 Blood Pressure 1: 114/68 Code: 8480-6 BMI: 36.4 Code: 30223-7 Heart Rate 1: 72 bpm Height: 5'4" Respiratory Rate: 22 bpm SpO2: 96% Tempera ture: 36.8 (C) / 98.2 (F) Weight: 212 lbs 10/23/2017 Blood Pressure 1: 124/78 Code: 8480-6 Heart Rate 1: 72 bpm Respiratory Rate: 24 bpm SpO2: 94% Temperature: 36.6 (C) / 97.9 (F) We ight: 212 lbs 09/17/2017 Blood Pressure 1: 128/82 Code: 8480-6 BMI: 37.4 Code: 84353-8 Heart Rate 1: 72 bpm Height: 5'4" Respiratory Rate: 20 bpm SpO2: 96% Tempera ture: 37.0 (C) / 98.6 (F) Weight: 218 lbs 07/19/2017 Blood Pressure 1: 136/84 Code: 8480-6 BMI: 36.6 Code: 71108-7 Heart Rate 1: 88 bpm Height: 5'4" Respiratory Rate: 20 bpm SpO2: 97% Tempera ture: 36.7 (C) / 98.0 (F) Weight: 213 lbs 05/29/2017 Blood Pressure 1: 136/82 Code: 8480-6 BMI: 36.7 Code: 00246-6 Heart Rate 1: 72 bpm Height: 5'4" Respiratory Rate: 20 bpm SpO2: 97% Tempera ture: 36.9 (C) / 98.4 (F) Weight: 214 lbs 05/07/2017 Blood Pressure 1: 122/80 Code: 8480-6 BMI: 37.1 Code: 36560-3 Heart Rate 1: 80 bpm Height: 5'4" Respiratory Rate: 24 bpm SpO2: 96% Tempera ture: 36.1 (C) / 97.0 (F) Weight: 216 lbs 03/18/2017 BMI: 36.7 Code: 06677-7 Heart Rate 1: 80 bpm Height: 5 '4" Respiratory Rate: 22 bpm SpO2: 95% Temperature: 36.9 (C) / 98.4 (F) Weight: 214 lbs 02/27/2017 Blood Pressure 1: 146/94 Code: 8480-6 BMI: 36.6 Code: 51618-1 Heart Rate 1: 76 bpm Height: 5'4" Respiratory Rate: 22 bpm SpO2: 97% Tempera ture: 36.6 (C) / 97.9 (F) Weight: 213 lbs 02/22/2017 Blood Pressure 1: 126/90 Code: 8480-6 BMI: 36.4 Code: 17249-0 Heart Rate 1: 84 bpm Height: 5'4" Respiratory Rate: 22 bpm SpO2: 95% Tempera ture: 36.9 (C) / 98.4 (F) Weight: 212 lbs 01/23/2017 Blood Pressure 1: 146/82 Code: 8480-6 BMI: 37.6 Code: 42650-2 Heart Rate 1: 96 bpm Height: 5'4" Respiratory Rate: 20 bpm SpO2: 96% Tempera ture: 36.9 (C) / 98.4 (F) Weight: 219 lbs 12/20/2016 Blood Pressure 1: 126/70 Code: 8480-6 BMI: 37.2 Code: 18821-2 Heart Rate 1: 76 bpm Height: 5'4" Respiratory Rate: 22 bpm SpO2: 95% Tempera ture: 36.6 (C) / 97.8 (F) Weight: 217 lbs 10/08/2016 Blood Pressure 1: 128/82 Code: 8480-6 BMI: 36.9 Code: 56560-7 Heart Rate 1: 76 bpm Height: 5'4" Respiratory Rate: 20 bpm SpO2: 95% Tempera ture: 37.0 (C) / 98.6 (F) Weight: 215 lbs 09/19/2016 Blood Pressure 1: 144/78 Code: 8480-6 BMI: 37.8 Code: 07872-2 Heart Rate 1: 76 bpm Height: 5'4" Respiratory Rate: 22 bpm SpO2: 95% Tempera ture: 37.0 (C) / 98.6 (F) Weight: 220 lbs 08/20/2016 Blood Pressure 1: 140/86 Code: 8480-6 BMI: 37.4 Code: 01099-9 Heart Rate 1: 80 bpm Height: 5'4" Respiratory Rate: 20 bpm SpO2: 95% Tempera ture: 36.9 (C) / 98.4 (F) Weight: 218 lbs 06/19/2016 Blood Pressure 1: 124/78 Code: 8480-6 BMI: 37.8 Code: 16019-6 Heart Rate 1: 74 bpm Height: 5'4" Respiratory Rate: 24 bpm SpO2: 96% Tempera ture: 36.9 (C) / 98.4 (F) Weight: 220 lbs 06/04/2016 Blood Pressure 1: 12478 Code: 8480-6 BMI: 38.8 Code: 74503-1 Heart Rate 1: 72 bpm Height: 5'4" Respiratory Rate: 24 bpm SpO2: 95% Tempera ture: 36.8 (C) / 98.2 (F) Weight: 226 lbs 05/02/2016 Blood Pressure 1: 136/90 Code: 8480-6 BMI: 37.6 Code: 59568-0 Heart Rate 1: 72 bpm Height: 5'4" Respiratory Rate: 24 bpm SpO2: 96% Tempera ture: 36.9 (C) / 98.4 (F) Weight: 219 lbs 04/03/2016 Blood Pressure 1: 126/78 Code: 8480-6 BMI: 38.1 Code: 54206-9 Heart Rate 1: 72 bpm Height: 5'4" Respiratory Rate: 22 bpm SpO2: 94% Tempera ture: 36.9 (C) / 98.4 (F) Weight: 222 lbs 02/29/2016 Blood Pressure 1: 132/78 Code: 8480-6 Heart Rate 1: 78 bpm Height: Respiratory Rate: 24 bpm SpO2: 95% Temperature: 36.4 (C) / 97.6 (F) We ight: 02/02/2016 Blood Pressure 1: 124/78 Code: 8480-6 BMI: 37.6 Code: 79654-0 Heart Rate 1: 76 bpm Height: 5'4" Respiratory Rate: 20 bpm SpO2: 95% Tempera ture: 36.8 (C) / 98.2 (F) Weight: 219 lbs 01/05/2016 Blood Pressure 1: 126/70 Code: 8480-6 BMI: 37.1 Code: 23051-8 Heart Rate 1: 76 bpm Height: 5'4" Respiratory Rate: 20 bpm Temperature: 36 .6 (C) / 97.8 (F) Weight: 216 lbs 12/05/2015 Blood Pressure 1: 126/72 Code: 8480-6 BMI: 36.9 Code: 75733-4 Heart Rate 1: 92 bpm Height: 5'4" Respiratory Rate: 20 bpm Temperature: 36 .7 (C) / 98.1 (F) Weight: 215 lbs 10/26/2015 Blood Pressure 1: 142/80 Code: 8480-6 BMI: 36.4 Code: 44568-5 Heart Rate 1: 82 bpm Height: 5'4" Respiratory Rate: 24 bpm SpO2: 92% Tempera ture: 35.9 (C) / 96.7 (F) Weight: 212 lbs 10/05/2015 Blood Pressure 1: 136/82 Code: 8480-6 Heart Rate 1: 80 bpm Respiratory Rate: 18 bpm SpO2: 98% Temperature: 35.7 (C) / 96.3 (F) We ight: 214 lbs 09/15/2015 Blood Pressure 1: 116/80 Code: 8480-6 BMI: 34.6 Code: 79583-6 Heart Rate 1: 76 bpm Height: 5'6" Respiratory Rate: 20 bpm Temperature: 36 .6 (C) / 97.9 (F) Weight: 211 lbs 08/24/2015 Blood Pressure 1: 124/80 Code: 8480-6 BMI: 34.1 Code: 05508-6 Heart Rate 1: 68 bpm Height: 5'6" Respiratory Rate: 20 bpm Temperature: 36 .8 (C) / 98.3 (F) Weight: 208 lbs 07/05/2015 Blood Pressure 1: 114/78 Code: 8480-6 BMI: 33.9 Code: 06310-5 Heart Rate 1: 80 bpm Height: 5'6" Respiratory Rate: 20 bpm Temperature: 36 .6 (C) / 97.9 (F) Weight: 207 lbs 06/06/2015 Blood Pressure 1: 122/78 Code: 8480-6 BMI: 34.1 Code: 83555-4 Heart Rate 1: 76 bpm Height: 5'6" Respiratory Rate: 24 bpm SpO2: 96% Tempera ture: 36.4 (C) / 97.6 (F) Weight: 208 lbs 05/23/2015 Blood Pressure 1: 124/78 Code: 8480-6 Heart Rate 1: 76 bpm Respiratory Rate: 24 bpm SpO2: 93% Temperature: 36.8 (C) / 98.2 (F) We ight: 212 lbs 05/05/2015 Blood Pressure 1: 136/80 Code: 8480-6 BMI: 35.4 Code: 06820-6 Heart Rate 1: 76 bpm Height: 5'6" Respiratory Rate: 28 bpm Temperature: 37 .0 (C) / 98.6 (F) Weight: 216 lbs 03/30/2015 Blood Pressure 1: 132/86 Code: 8480-6 BMI: 35.2 Code: 26076-2 Heart Rate 1: 84 bpm Height: 5'6" Respiratory Rate: 24 bpm Temperature: 36 .7 (C) / 98.0 (F) Weight: 215 lbs 02/03/2015 Blood Pressure 1: 122/74 Code: 8480-6 BMI: 35.7 Code: 03725-7 Heart Rate 1: 84 bpm Height: 5'6" Respiratory Rate: 20 bpm Temperature: 36 .9 (C) / 98.5 (F) Weight: 218 lbs 12/29/2014 Blood Pressure 1: 132/80 Code: 8480-6 BMI: 35.1 Code: 53782-1 Heart Rate 1: 80 bpm Height: 5'6" Respiratory Rate: 20 bpm Temperature: 36 .6 (C) / 97.8 (F) Weight: 214 lbs 09/02/2014 Blood Pressure 1: 128/92 Code: 8480-6 BMI: 34.7 Code: 48799-6 Heart Rate 1: 84 bpm Height: 5'6" Respiratory Rate: 26 bpm Temperature: 36 .8 (C) / 98.2 (F) Weight: 212 lbs 08/25/2014 Blood Pressure 1: 124/80 Code: 8480-6 BMI: 34.7 Code: 51042-1 Heart Rate 1: 78 bpm Height: 5'6" Respiratory Rate: 22 bpm SpO2: 97% Tempera ture: 36.6 (C) / 97.8 (F) Weight: 212 lbs 04/01/2014 Blood Pressure 1: 142/84 Code: 8480-6 BMI: 34.4 Code: 72218-1 Heart Rate 1: 74 bpm Height: 5'5" Respiratory Rate: 20 bpm Temperature: 36 .4 (C) / 97.6 (F) Weight: 207 lbs 03/16/2014 Blood Pressure 1: 142/90 Code: 8480-6 BMI: 34.6 Code: 64559-4 Heart Rate 1: 76 bpm Height: 5'5" Respiratory Rate: 24 bpm Temperature: 36 .5 (C) / 97.7 (F) Weight: 208 lbs 03/09/2014 Blood Pressure 1: 116/70 Code: 8480-6 BMI: 35.3 Code: 96491-7 Heart Rate 1: 72 bpm Height: 5'5" [...] 1: 128/86 Code: 8480-6 BMI: 34.3 Code: 49661-5 Heart Rate 1: 84 bpm Height: 5'5" Respiratory Rate: 20 bpm Temperature: 36 .7 (C) / 98.0 (F) Weight: 206 lbs 12/23/2013 Blood Pressure 1: 122/70 Code: 8480-6 BMI: 34.3 Code: 29476-8 Heart Rate 1: 68 bpm Height: 5'5" Respiratory Rate: 20 bpm Temperature: 36 .8 (C) / 98.2 (F) Weight: 206 lbs 10/05/2013 Blood Pressure 1: 118/76 Code: 8480-6 BMI: 34.1 Code: 63196-4 Heart Rate 1: 68 bpm Height: 5'5" Respiratory Rate: 20 bpm SpO2: 98% Tempera ture: 36.6 (C) / 97.9 (F) Weight: 205 lbs 08/04/2013 Blood Pressure 1: 126/82 Code: 8480-6 BMI: 33.3 Code: 75819-6 Heart Rate 1: 76 bpm Height: 5'5" Respiratory Rate: 20 bpm Temperature: 36 .8 (C) / 98.2 (F) Weight: 200 lbs 07/03/2013 Blood Pressure 1: 124/82 Code: 8480-6 BMI: 33.3 Code: 45065-2 Heart Rate 1: 72 bpm Height: 5'5" Respiratory Rate: 22 bpm Temperature: 36 .1 (C) / 97.0 (F) Weight: 200 lbs 05/27/2013 Blood Pressure 1: 126/82 Code: 8480-6 Heart Rate 1: 74 bpm Respiratory Rate: 20 bpm Temperature: 36.0 (C) / 96.8 (F) Weight: 199 lbs 04/06/2013 Blood Pressure 1: 118/80 Code: 8480-6 BMI: 35.2 Code: 56377-8 Heart Rate 1: 80 bpm Height: 5'4" Respiratory Rate: 20 bpm Temperature: 37 .4 (C) / 99.3 (F) Weight: 205 lbs 11/10/2012 Blood Pressure 1: 128/82 Code: 8480-6 Heart Rate 1: 84 bpm Respiratory Rate: 20 bpm Temperature: 36.7 (C) / 98.0 (F) Weight: 199 lbs 09/02/2012 Blood Pressure 1: 116/82 Code: 8480-6 BMI: 34.2 Code: 61285-6 Heart Rate 1: 88 bpm Height: 5'4" Respiratory Rate: 22 bpm Temperature: 36 .6 (C) / 97.8 (F) Weight: 199 lbs 08/04/2012 Blood Pressure 1: 128/74 Code: 8480-6 BMI: 34.0 Code: 06045-2 Heart Rate 1: 92 bpm Height: 5'4" Respiratory Rate: 20 bpm Temperature: 36 .4 (C) / 97.5 (F) Weight: 198 lbs 07/21/2012 Blood Pressure 1: 124/86 Code: 8480-6 Heart Rate 1: 116 bpm Respiratory Rate: 24 bpm Temperature: 36.8 (C) / 98.2 (F) 07/02/2012 Blood Pressure 1: 116/88 Code: 8480-6 BMI: 33.6 Code: 75539-7 Heart Rate 1: 76 bpm Height: 5'4" Respiratory Rate: 20 bpm Temperature: 36 .8 (C) / 98.3 (F) Weight: 196 lbs 06/24/2012 Blood Pressure 1: 124/80 Code: 8480-6 BMI: 34.3 Code: 06886-7 Heart Rate 1: 72 bpm Height: 5'4" SpO2: 96% Temperature: 36.3 (C) / 97.3 (F) Weight: 200 lbs 05/20/2012 Blood Pressure 1: 116/88 Code: 8480-6 BMI: 33.8 Code: 87685-6 Heart Rate 1: 80 bpm Height: 5'4" Respiratory Rate: 22 bpm Temperature: 36 .9 (C) / 98.4 (F) Weight: 197 lbs 05/08/2012 Blood Pressure 1: 128/86 Code: 8480-6 BMI: 33.8 Code: 08651-1 Heart Rate 1: 76 bpm Height: 5'4" Respiratory Rate: 26 bpm SpO2: 95% Tempera ture: 36.1 (C) / 97.0 (F) Weight: 197 lbs 04/22/2012 Blood Pressure 1: 106/64 Code: 8480-6 BMI: 33.8 Code: 76964-0 Heart Rate 1: 70 bpm Height: 5'4" Temperature: 36.1 (C) / 97.0 (F) Weight: 197 lbs 02/13/2012 Blood Pressure 1: 126/82 Code: 8480-6 BMI: 34.7 Code: 33842-9 Heart Rate 1: 64 bpm Height: 5'4" Respiratory Rate: 20 bpm Temperature: 36 .6 (C) / 97.8 (F) Weight: 202 lbs 01/28/2012 Blood Pressure 1: 116/80 Code: 8480-6 BMI: 34.7 Code: 09840-1 Heart Rate 1: 76 bpm Height: 5'4" Respiratory Rate: 20 bpm Temperature: 36 .8 (C) / 98.3 (F) Weight: 202 lbs 12/26/2011 Blood Pressure 1: 132/82 Code: 8480-6 BMI: 36.0 Code: 13048-9 Heart Rate 1: 68 bpm Height: 5'4" Respiratory Rate: 22 bpm Temperature: 36 .7 (C) / 98.0 (F) Weight: 210 lbs 11/14/2011 Blood Pressure 1: 124/80 Code: 8480-6 BMI: 36.4 Code: 87278-7 Heart Rate 1: 76 bpm Height: 5'4" Respiratory Rate: 20 bpm Temperature: 36 .8 (C) / 98.2 (F) Weight: 212 lbs 09/12/2011 Blood Pressure 1: 108/74 Code: 8480-6 BMI: 37.1 Code: 21849-5 Heart Rate 1: 72 bpm Height: 5'4" Respiratory Rate: 20 bpm Temperature: 37 .0 (C) / 98.6 (F) Weight: 216 lbs 08/15/2011 Blood Pressure 1: 122/80 Code: 8480-6 BMI: 36.9 Code: 39378-2 Heart Rate 1: 76 bpm Height: 5'4" Respiratory Rate: 20 bpm Temperature: 36 .2 (C) / 97.1 (F) Weight: 215 lbs 08/09/2011 Blood Pressure 1: 112/78 Code: 8480-6 BMI: 36.9 Code: 62963-1 Heart Rate 1: 68 bpm Height: 5'4" Respiratory Rate: 20 bpm Temperature: 36 .7 (C) / 98.0 (F) Weight: 215 lbs 07/03/2011 Blood Pressure 1: 140/94 Code: 8480-6 BMI: 36.2 Code: 75329-1 Heart Rate 1: 68 bpm Height: 5'4" Temperature: 36.0 (C) / 96.8 (F) Weight: 211 lbs 06/04/2011 Blood Pressure 1: 124/70 Code: 8480-6 BMI: 36.7 Code: 30223-3 Heart Rate 1: 68 bpm Height: 5'4" Respiratory Rate: 20 bpm Temperature: 36 .6 (C) / 97.9 (F) Weight: 214 lbs 05/03/2011 Blood Pressure 1: 130/76 Code: 8480-6 BMI: 36.4 Code: 36235-2 Heart Rate 1: 74 bpm Height: 5'5" Temperature: 36.2 (C) / 97.2 (F) Weight: 219 lbs 04/05/2011 Blood Pressure 1: 124/86 Code: 8480-6 BMI: 35.9 Code: 02463-0 Heart Rate 1: 76 bpm Height: 5'6" Respiratory Rate: 22 bpm Temperature: 36 .3 (C) / 97.3 (F) Weight: 219 lbs 03/08/2011 Blood Pressure 1: 112/78 Code: 8480-6 BMI: 35.1 Code: 81107-3 Heart Rate 1: 80 bpm Height: 5'6" Respiratory Rate: 26 bpm Temperature: 36 .9 (C) / 98.4 (F) Weight: 214 lbs 01/24/2011 Blood Pressure 1: 110/82 Code: 8480-6 BMI: 35.6 Code: 80958-3 Heart Rate 1: 80 bpm Height: 5'6" Temperature: 36.1 (C) / 97.0 (F) Weight: 217 lbs 01/02/2011 Blood Pressure 1: 106/72 Code: 8480-6 BMI: 35.6 Code: 93114-7 Heart Rate 1: 76 bpm Height: 5'6" [...] 1: 120/74 Code: 8480-6 BMI: 35.9 Code: 47397-0 Heart Rate 1: 72 bpm Height: 5'5" Temperature: 36.3 (C) / 97.4 (F) Weight: 216 lbs 09/19/2010 Blood Pressure 1: 124/80 Code: 8480-6 BMI: 35.4 Code: 52872-2 Heart Rate 1: 76 bpm Height: 5'5" [...] 1: 122/78 Code: 8480-6 BMI: 37.4 Code: 41350-8 Heart Rate 1: 84 bpm Height: 5'5" [...] follow up 10/26/2015 ER visit from at [facility] for COPD Exacerbation follow up 10/05/2015 ER Visit gait abnormality 09/15/2015 Patient requesting kelly pineda paperwork to be filled out disturbances of thinking 08/24/2015 follow up 07/05/2015 4wk fwup follow up 06/06/2015 [facility] cough 05/23/2015 follow up 05/05/2015 dyspnea 03/30/2015 [employer] needs new orde r for O2 abdominal pain 02/03/2015 cyst 12/29/2014 vs abscess follow up 09/02/2014 [facility] headache 08/25/2014 facial drooping follow up 04/01/2014 ER follow up 03/16/2014 1wk fwup follow up 03/09/2014 1mo fwup and bronchi tis fwup follow up 03/03/2014 2 day follow up 03/01/2014 ER follow up 02/09/2014 [facility] gastroesophageal reflux 12/23/2013 painful urination [...] up 08/04/2012 2wk fwup follow up 07/21/2012 [facility]--[facility] an sore throat 07/02/2012 headache [...] up 10/18/[address] Marcela sagastume w [facility], having increased allergy symptoms. Would like steroid [...] month f/u follow up 12/07/[facility], done with PT--finished about 2wks ago [...] K59.00] Pattie Floresjuan BRUNSON S. Emma WICK [employer] CPT-4: 83725 08/04/2019 ([id number]) OFFICE/OUTPATIENT VISIT EST Diagnosis: Inspiratory stridor[ICD10: R06.1] Diagnosis: Diarrhea[ICD10: R19.7] Belia [facility] CPT-4: 9921 3 07/06/2019 ([id number]) OFFICE/OUTPATIENT VISIT EST Diagnosis: Left leg swelling[ICD10: M79.89] Diagnosis: Dyspnea[ICD10: R06.00] Belia [facility] CPT-4: 9921 3 06/24/2019 ([id number]) OFFICE/OUTPATIENT VISIT EST Diagnosis: Acute bronchitis[ICD10: J20.9] Diagnosis: Colitis[ICD10: K52.9] [facility] [employer] CPT-4: 96433 06/16/2019 ([id number]) OFFICE/OUTPATIENT VISIT EST Diagnosis: Diarrhea[ICD10: R19.7] Diagnosis: Abdominal bloating[ICD10: R14.0] Belia [facility] CPT- 4: 29954 06/08/2019 ([id number]) OFFICE/OUTPATIENT VISIT EST Diagnosis: Acute febrile illness[ICD10: R50.9] Diagnosis: Colitis[ICD10: K52.9] Belia [facility] CPT-4: 46208 05/26/2019 ([id number]) OFFICE/OUTPATIENT VISIT EST Diagnosis: Chronic obstructive pulmonary disease, unspecified[ICD10: J44.9] Diagnosis: Pulmonary fibrosis[ICD10: J84.10] Diagnosis: Intermittent stridor[ICD10: R06.1] Diagnosis: Muscle weakness[ICD10: M62.81] Belia REID [facility] CPT-4: 88490 05/13/2019 ([id number]) OFFICE/OUTPATIENT VISIT EST Diagnosis: Stridor[ICD10: R06.1] Diagnosis: COUGH[ICD10: R05] Belia REID DO [facility] CPT-4: 12622 05/06/2019 ([id number]) OFFICE/OUTPATIENT VISIT EST Diagnosis: Stridor[ICD10: R06.1] Diagnosis: Muscle, jerky movements (uncontrolled)[ICD10: G25.5] Belia REID [employer] [facility] CPT-4: 91646 04/29/2019 ([id number]) OFFICE/OUTPATIENT VISIT EST Diagnosis: Upper respiratory infection[ICD10: J06.9] Diagnosis: Flank pain[ICD10: R10.9] Diagnosis: Weight gain[ICD10: R63.5] Pattie AMBRIZ [employer] [facility] CPT-4: 94090 04/16/2019 ([id number]) OFFICE/OUTPATIENT VISIT EST Diagnosis: Generalized pruritus[ICD10: L29.9] Belia REID [employer] [facility] CPT-4: 78686 04/08/2019 ([id number]) OFFICE/OUTPATIENT VISIT EST Diagnosis: Acute bursitis of left shoulder[ICD10: M75.52] Diagnosis: Cervicalgia[ICD10: M54.2] Diagnosis: Chest wall pain[ICD10: R07.89] Belia REID [employer] [facility] CPT-4: 14678 01/22/2019 ([id number]) OFFICE/OUTPATIENT VISIT EST Diagnosis: Abdominal pain[ICD10: R10.9] Diagnosis: Pyelonephritis[ICD10: N12] Pattie GORDILLO ALBERTO [employer] [facility] CPT-4: 97855 01/07/2019 ([id number]) OFFICE/OUTPATIENT VISIT EST Diagnosis: Low back pain[ICD10: M54.5] Diagnosis: Left lumbar radiculopathy[ICD10: M54.16] Diagnosis: Left flank pain[ICD10: R10.9] Diagnosis: Left lower quadrant pain[ICD10: R10.32] Diagnosis: FLU VACCINE[ICD10: Z23] Belia FREDERICK DO [facility] CPT-4: 89575 12/24/2018 ([id number]) OFFICE/OUTPATIENT VISIT EST Diagnosis: Migraine, unspecified, not intractable, without status migrainosus[ICD10: G43.909] Diagnosis: Fibromyalgia[ICD10: M79.7] Belia DOMINGUEZ [facility] CPT-4: 15193 11/20/2018 ([id number]) OFFICE/OUTPATIENT VISIT EST Diagnosis: Migraine, unspecified, intractable, without status migrainosus[ICD10: G43.919] Diagnosis: Acute sinusitis, unspecified[ICD10: J01.90] Pattie REID DO [facility] CPT-4: 64344 11/04/2018 ([id number]) OFFICE/OUTPATIENT VISIT EST Diagnosis: Pain in left wrist[ICD10: M25.532] Diagnosis: Other dorsalgia[ICD10: M54.89] Pattie REID DO [facility] CPT-4: 93267 09/08/2018 ([id number]) OFFICE/OUTPATIENT VISIT EST Diagnosis: Acute stress reaction[ICD10: F43.0] Diagnosis: Pruritus, unspecified[ICD10: L29.9] 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, 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] Belia REID [facility] CPT-4: 26316 08/20/2018 ([id number]) OFFICE/OUTPATIENT VISIT EST Diagnosis: Hypotension due to drugs[ICD10: I95.2] Diagnosis: Paroxysmal atrial fibrillation[ICD10: I48.0] Diagnosis: Localized edema[ICD10: R60.0] Belia REID DO [facility] CPT-4: 96933 06/19/2018 ([id number]) OFFICE/OUTPATIENT VISIT EST Diagnosis: Generalized hyperhidrosis[ICD10: R61] Diagnosis: Essential (primary) hypertension[ICD10: I10] Diagnosis: Supraventricular tachycardia[ICD10: I47.1] Belia REID DO [facility] CPT-4: 75317 06/09/2018 ([id number]) OFFICE/OUTPATIENT VISIT EST Diagnosis: Stridor[ICD10: R06.1] Diagnosis: Dependence on supplemental oxygen[ICD10: Z99.81] Diagnosis: Weakness[ICD10: R53.1] Diagnosis: Supraventricular tachycardia[ICD10: I47.1] Belia REID DO [facility] CPT-4: 72849 05/21/2018 ([id number]) OFFICE/OUTPATIENT VISIT EST Diagnosis: Cervical disc disorder with radiculopathy, unspecified cervical region[ICD10: M50.10] Belia REID [facility] CPT-4: 36726 04/16/2018 ([id number]) OFFICE/OUTPATIENT VISIT EST Diagnosis: Migraine, unspecified, intractable, without status migrainosus[ICD10: G43.919] Diagnosis: Fibromyalgia[ICD10: M79.7] Pattie DOMINGUEZ [employer] [facility] CPT-4: 20539 04/01/2018 ([id number]) NURSE/OUTPATIENT VISIT EST Diagnosis: Hematuria, unspecified[ICD10: R31.9] Diagnosis: Dysuria[ICD10: R30.0] Belia REID [employer] [facility] CPT-4: 09331 03/17/2018 ([id number]) OFFICE/OUTPATIENT VISIT EST Diagnosis: Erythema intertrigo[ICD10: L30.4] Diagnosis: Chronic obstructive pulmonary disease with (acute) exacerbation[ICD10: J44.1] Diagnosis: Type 2 diabetes mellitus with hyperglycemia[ICD10: E11.65] Belia REID [employer] [facility] CPT-4: 83814 03/06/2018 ([id number]) OFFICE/OUTPATIENT VISIT EST Diagnosis: Cervicalgia[ICD10: M54.2] Pattie AMBRIZ [employer] [facility] CPT-4: 40700 02/05/2018 ([id number]) OFFICE/OUTPATIENT VISIT EST Diagnosis: Candidiasis of skin and nail[ICD10: B37.2] Diagnosis: Cervicalgia[ICD10: M54.2] Pattie AMBRIZ [facility] CPT-4: 65525 01/20/2018 ([id number]) OFFICE/OUTPATIENT VISIT EST Diagnosis: Pain in thoracic spine[ICD10: M54.6] Diagnosis: Radiculopathy, thoracic region[ICD10: M54.14] [facility] CPT-[facility]: 63468 12/25/2017 ([id number]) OFFICE/OUTPATIENT VISIT EST Diagnosis: Pain in thoracic spine[ICD10: M54.6] Diagnosis: Other muscle spasm[ICD10: M62.838] Diagnosis: FLU VACCINE[ICD10: Z23] Diagnosis: PNEUMOCOCCAL VACCINE[ICD10: Z23] Bel[facility] CPT-4: 86175 12/17/2017 ([id number]) OFFICE/OUTPATIENT VISIT EST Diagnosis: Chronic obstructive pulmonary disease with (acute) exacerbation[ICD10: J44.1] Belia REID [facility] CPT- 4: 71432 10/30/2017 ([id number]) OFFICE/OUTPATIENT VISIT EST Diagnosis: Chronic obstructive pulmonary disease with acute lower respiratory infection[ICD10: J44.0] Diagnosis: Mild intermittent asthma with (acute) exacerbation[ICD10: J45.21] Belia REID [facility] CPT-4: 89520 10/23/2017 ([id number]) NURSE/OUTPATIENT VISIT EST Diagnosis: Migraine, unspecified, not intractable, without status migrainosus[ICD10: G43.909] Belia REID [facility] CPT - 4: 72222 08/26/2017 ([id number]) OFFICE/OUTPATIENT VISIT EST Diagnosis: Urinary tract infection, site not specified[ICD10: N39.0] Diagnosis: Encounter for screening for osteoporosis[ICD10: Z13.820] Diagnosis: Encounter for screening mammogram for malignant neoplasm of breast[ICD10: Z12.31] Diagnosis: Acute bronchitis, unspecified[ICD10: J20.9] Pattie REID DO [facility] CPT-4: 32568 07/19/2017 ([id number]) OFFICE/OUTPATIENT VISIT EST Diagnosis: Rash and other nonspecific skin eruption[ICD10: R21] Pattie REID DO [facility] CPT-4: 18078 05/29/2017 ([id number]) OFFICE/OUTPATIENT VISIT EST Diagnosis: Diarrhea, unspecified[ICD10: R19.7] Diagnosis: Tinea corporis[ICD10: B35.4] Diagnosis: Tinea cruris[ICD10: B35.6] Diagnosis: Migraine, unspecified, not intractable, without status migrainosus[ICD10: G43.909] Belia REID DO [facility] CPT - 4: 80031 05/07/2017 ([id number]) OFFICE/OUTPATIENT VISIT EST Diagnosis: Stridor[ICD10: R06.1] Diagnosis: Chronic obstructive pulmonary disease with (acute) exacerbation[ICD10: J44.1] Belia REID [facility] CPT- 4: 84314 03/18/2017 ([id number]) OFFICE/OUTPATIENT VISIT EST Diagnosis: Type 2 diabetes mellitus with hyperglycemia[ICD10: E11.65] Belia REID DO [facility] CPT-4: 48768 02/27/2017 OFFICE/OUTPATIENT VISIT EST Diagnosis: Type 2 diabetes mellitus with hyperglycemia[ICD10: E11.65] Pattie REID DO [facility] CPT-4: 24105 02/22/2017 ([id number]) OFFICE/OUTPATIENT VISIT EST Diagnosis: Urinary tract infection, site not specified[ICD10: N39.0] Diagnosis: Pneumonia, unspecified organism[ICD10: J18.9] Diagnosis: Type 2 diabetes mellitus with hyperglycemia[ICD10: E11.65] Belia REID [facility] CPT-4: 42265 01/23/2017 ([id number]) OFFICE/OUTPATIENT VISIT EST Diagnosis: Type 2 diabetes mellitus with hyperglycemia[ICD10: E11.65] Diagnosis: Localized edema[ICD10: R60.0] Diagnosis: PNEUMOCOCCAL VACCINE[ICD10: Z23] Diagnosis: FLU VACCINE[ICD10: Z23] Belia FREDERICK [facility] CPT-4: 06731 12/20/2016 OFFICE/OUTPATIENT VISIT EST Diagnosis: Pain in thoracic spine[ICD10: M54.6] Diagnosis: Low back pain[ICD10: M54.5] Diagnosis: Cervicalgia[ICD10: M54.2] Diagnosis: Cough[ICD10: R05] Celeste Ferreira BELIA REID [facility] CPT-4: 96151 10/08/2016 ([id number]) OFFICE/OUTPATIENT VISIT EST Diagnosis: Primary insomnia[ICD10: F51.01] Diagnosis: Migraine, unspecified, not intractable, without status migrainosus[ICD10: G43.909] Diagnosis: Type 2 diabetes mellitus with hyperglycemia[ICD10: E11.65] Belia REID [facility] CPT-4: 54088 09/19/2016 ([id number]) OFFICE/OUTPATIENT VISIT EST Diagnosis: Migraine, unspecified, not intractable, without status migrainosus[ICD10: G43.909] Diagnosis: Generalized abdominal pain[ICD10: R10.84] Diagnosis: Cough[ICD10: R05] Belia REID DO [facility] CPT-4: 05580 08/20/2016 ([id number]) OFFICE/OUTPATIENT VISIT EST Diagnosis: Chronic obstructive pulmonary disease, unspecified[ICD10: J44.9] Diagnosis: Stridor[ICD10: R06.1] Belia REID [facility] CPT-4: 63356 06/19/2016 ([id number]) OFFICE/OUTPATIENT VISIT EST Diagnosis: Chronic obstructive pulmonary disease, unspecified[ICD10: J44.9] Diagnosis: Personal history of urinary (tract) infections[ICD10: Z87.440] Belia REID DO [facility] CPT-4: 52620 06/04/2016 ([id number]) OFFICE/OUTPATIENT VISIT EST Diagnosis: Stridor[ICD10: R06.1] Diagnosis: Chronic obstructive pulmonary disease with acute lower respiratory infection[ICD10: J44.0] Diagnosis: Other specified diseases of intestine[ICD10: K63.89] Diagnosis: Cystitis, unspecified without hematuria[ICD10: N30.90] Belia REID [employer] [facility] CPT-4: 45183 05/02/2016 ([id number]) OFFICE/OUTPATIENT VISIT EST Diagnosis: Fibromyalgia[ICD10: M79.7] Diagnosis: Urinary tract infection, site not specified[ICD10: N39.0] Belia REID DO [facility] CPT-4: 02136 04/03/2016 ([id number]) OFFICE/OUTPATIENT VISIT EST Diagnosis: Unspecified asthma, uncomplicated[ICD10: J45.909] Diagnosis: Cough[ICD10: R05] Lidia REID [employer] [facility] T-4: 06160 02/29/2016 ([id number]) OFFICE/OUTPATIENT VISIT EST Diagnosis: Migraine, unspecified, intractable, without status migrainosus[ICD10: G43.919] Diagnosis: Urinary tract infection, site not specified[ICD10: N39.0] Belia REID [employer] [facility] CPT-4: 36168 02/02/2016 ([id number]) OFFICE/OUTPATIENT VISIT EST Diagnosis: Urinary tract infection, site not specified[ICD10: N39.0] Diagnosis: Unspecified abdominal pain[ICD10: R10.9] Diagnosis: Pain in thoracic spine[ICD10: M54.6] Diagnosis: Type 2 diabetes mellitus with diabetic neuropathic arthropathy[ICD10: E11.610] Belia REID [employer] [facility] CPT-4: 55076 12/05/2015 ([id number]) OFFICE/OUTPATIENT VISIT EST Diagnosis: Chronic obstructive pulmonary disease with (acute) exacerbation[ICD10: J44.1] Diagnosis: Migraine, unspecified, not intractable, without status migrainosus[ICD10: G43.909] Lidia Jaiden CORNELLLINE Yuridia REID [employer] [facility] CPT -4: 79401 10/26/2015 ([id number]) OFFICE/OUTPATIENT VISIT EST Diagnosis: Hematuria, unspecified[ICD10: R31.9] Diagnosis: Urinary tract infection, site not specified[ICD10: N39.0] Lidia HSUQUELINE Yuridia REID [employer] [facility] CPT-4: 44559 10/05/2015 OFFICE/OUTPATIENT VISIT EST Diagnosis: Chronic obstructive pulmonary disease, unspecified[ICD10: J44.9] Diagnosis: Muscle weakness (generalized)[ICD10: M62.81] Diagnosis: Polyneuropathy, unspecified[ICD10: G62.9] Diagnosis: Other intervertebral disc degeneration, 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] Diagnosis: Fibromyalgia[ICD10: M79.7] Belia CORNELLLINE Yuridia DOMINGUEZ [facility] CPT-4: 91310 09/15/2015 ([id number]) OFFICE/OUTPATIENT VISIT EST Diagnosis: Disorientation, unspecified[ICD10: R41.0] Diagnosis: Headache[ICD10: R51] Diagnosis: Paresthesia of skin[ICD10: R20.2] Lidia CORNELLHERNANDEZ Paredes Yuridia REID [employer] [facility] CPT-4: 11872 08/24/2015 ([id number]) OFFICE/OUTPATIENT VISIT EST Diagnosis: Type 2 diabetes mellitus with hyperglycemia[ICD10: E11.65] Diagnosis: Chronic obstructive pulmonary disease with acute lower respiratory infection[ICD10: J44.0] Belia REID [employer] [facility] CPT-4: 58306 07/05/2015 ([id number]) OFFICE/OUTPATIENT VISIT EST Diagnosis: Mild intermittent asthma with (acute) exacerbation[ICD10: J45.21] Diagnosis: Chronic obstructive pulmonary disease, unspecified[ICD10: J44.9] Eblia Zacharyisabellaannie CORNELLBELIA BushraMayda ANUSHKA [employer] [facility] CPT-4: 43327 06/06/2015 ([id number]) OFFICE/OUTPATIENT VISIT EST Diagnosis: Chronic obstructive pulmonary disease with (acute) exacerbation[ICD10: J44.1] Lidia HSUQUELINE BushraMayda ANUSHKA [employer] [facility] CPT- 4: 04901 05/23/2015 ([id number]) OFFICE/OUTPATIENT VISIT EST Diagnosis: Type 2 diabetes mellitus with hyperglycemia[ICD10: E11.65] Diagnosis: Functional dyspepsia[ICD10: K30] Belia Anushka CORNELLLINE Yuridia REID [employer] [facility] CPT-4: 54816 05/05/2015 ([id number]) OFFICE/OUTPATIENT VISIT EST Diagnosis: Type 2 diabetes mellitus with hyperglycemia[ICD10: E11.65] Diagnosis: Glycosuria[ICD10: R81] Diagnosis: Urinary tract infection, site not specified[ICD10: N39.0] Belia REID [facility] CPT-4: 04528 03/30/2015 ([id number]) OFFICE/OUTPATIENT VISIT EST Diagnosis: Generalized abdominal pain[ICD10: R10.84] Diagnosis: Diarrhea, unspecified[ICD10: R19.7] Diagnosis: Urinary tract infection, site not specified[ICD10: N39.0] Diagnosis: Gastro-esophageal reflux disease without esophagitis[ICD10: K21.9] Belia [facility] CPT-4: 93793 02/03/2015 ([id number]) OFFICE/OUTPATIENT VISIT EST Diagnosis: Other specified noninflammatory disorders of vagina[ICD10: N89.8] Diagnosis: Follicular disorder, unspecified[ICD10: L73.9] Diagnosis: Functional dyspepsia[ICD10: K30] Diagnosis: FLU VACCINE[ICD10: Z23] Belia [facility] CPT-4: 96281 12/29/2014 ([id number]) OFFICE/OUTPATIENT VISIT EST 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] Diagnosis: RESTLESS LEGS SYNDROME[ICD9: 333.94] Diagnosis: MIGRAINE NOS/NOT INTRCBL[ICD9: 346.90] Beliahanna Humphriesisabellaannie HSUFlorencio COKER Yuridia [facility] CPT-4: 66363 09/02/2014 ([id number]) OFFICE/OUTPATIENT VISIT EST Diagnosis: Cervical radiculopathy[ICD9: 723.4] Diagnosis: Cervicalgia[ICD9: 723.1] Diagnosis: Degenerative disc disease, cervical[ICD9: 722.4] 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I[ICD9: 250.00] Beliahanna [facility] CPT-4: 52468 04/01/2014 OFFICE/OUTPATIENT VISIT EST Diagnosis: Reactive airway disease[ICD9: 493.90] Belia Zacharyisabellaannie MINAL CALVO Yuridia [facility] CPT-4: 09797 03/16/2014 ([id number]) OFFICE/OUTPATIENT VISIT EST Diagnosis: BRONCHITIS, ACUTE[ICD9: 466.0] Diagnosis: Reactive airway disease[ICD9: 493.90] Belia REID DO [facility] CPT-4: 04094 03/09/2014 OFFICE/OUTPATIENT VISIT EST Diagnosis: BRONCHITIS, ACUTE[ICD9: 466.0] Diagnosis: WHEEZING[ICD9: 786.07] Huong Peguero [facility] CPT-4: 60054 03/03/2014 OFFICE/OUTPATIENT VISIT EST Diagnosis: BRONCHITIS, ACUTE[ICD9: 466.0] Diagnosis: WHEEZING[ICD9: 786.07] Huong Peguero [facility] CPT-4: 79036 03/01/2014 ([id number]) OFFICE/OUTPATIENT VISIT EST Diagnosis: GERD[ICD9: 530.81] Diagnosis: ARTHRALGIA-MULTIPLE SITES[ICD9: 719.49] Diagnosis: LUMB/LUMBOSAC DISC DEGEN[ICD9: 722.52] Diagnosis: - I - FIBROMYALGIA[ICD9: 729.1] Belia REID [facility] CPT-4: 40650 02/09/2014 ([id number]) OFFICE/OUTPATIENT VISIT EST Diagnosis: Peptic ulcer disease[ICD9: 533.90] Diagnosis: RESTLESS LEGS SYNDROME[ICD9: 333.94] Diagnosis: Neuropathy[ICD9: 355.9] Belia FREDERICK [facility] CPT-4: 93630 12/23/2013 ([id number]) OFFICE/OUTPATIENT VISIT EST Diagnosis: URINARY TRACT INFECTION[ICD9: 599.0] Belia REID [facility] CPT-4: 75316 10/30/2013 ([id number]) OFFICE/OUTPATIENT VISIT EST Diagnosis: Flank pain[ICD9: 789.00] Belia CORNELLLINE Yuridia POOLE [facility] CPT-4: 56318 10/21/2013 ([id number]) OFFICE/OUTPATIENT VISIT EST Diagnosis: INFLAMED SEBORR KERATOS[ICD9: 702.11] Diagnosis: Brachioradial pruritus[ICD9: 698.9] Diagnosis: ASTHMA NOS[ICD9: 493.90] Belia Zacharynilson BRUNSON BushraMayda KIESHA POO[facility] [employer] CPT-4: 29784 10/05/2013 ([id number]) OFFICE/OUTPATIENT VISIT EST Diagnosis: HYPERTENSION[ICD9: 401.9] Diagnosis: - I - FIBROMYALGIA[ICD9: 729.1] Diagnosis: DIZZINESS/VERTIGO[ICD9: 780.4] Diagnosis: MIGRAINE NOS/NOT INTRCBL[ICD9: 346.90] Diagnosis: Diabetic peripheral neuropathy[ICD9: 250.60] Diagnosis: Flank pain[ICD9: 789.00] Belia BRUNSON BushraMayda [facility] [employer] CPT-4: 12829 08/04/2013 ([id number]) OFFICE/OUTPATIENT VISIT EST Diagnosis: ALLERGIC RHINITIS[ICD9: 477.9] Belia Zacharyisabellaannie BELIA Bushra Mayda ANUSHKA RUDOLPH [employer] CPT-4: 73468 07/13/2013 OFFICE/OUTPATIENT VISIT EST Diagnosis: URINARY TRACT INFECTION[ICD9: 599.0] Huong ARNOLD SMayda ANUSHKA [employer] [facility] CPT-4: 25559 07/03/2013 OFFICE/OUTPATIENT VISIT EST Diagnosis: HYPERTENSION[ICD9: 401.9] Diagnosis: URINARY TRACT INFECTION[ICD9: 599.0] Diagnosis: BACKACHE[ICD9: 724.5] Diagnosis: URINARY INCONTINENCE[ICD9: 788.30] Huong SALAZAR SMayda REID [employer] [facility] CPT-4: 88275 05/27/2013 ([id number]) OFFICE/OUTPATIENT VISIT EST Diagnosis: Flank pain[ICD9: 789.00] Belia BRUNSON BushraMayda KIEHSA [facility] [employer] CPT-4: 20787 05/25/2013 ([id number]) OFFICE/OUTPATIENT VISIT EST Diagnosis: B-COMPLEX DEFIC NEC[ICD9: 266.2] Belia BRUNSON BushraMayda ANUSHKA RUDOLPH [employer] CPT-4: 47961 05/04/2013 ([id number]) OFFICE/OUTPATIENT VISIT EST Diagnosis: ALLERGIC RHINITIS[ICD9: 477.9] Diagnosis: Vitamin B12 deficiency[ICD9: 266.2] Belia THOMPSON Yuridia REID [facility] CPT-4: 33251 04/17/2013 ([id number]) OFFICE/OUTPATIENT VISIT EST 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I[ICD9: 250.00] Diagnosis: URINARY TRACT INFECTION[ICD9: 599.0] Diagnosis: DIZZINESS/VERTIGO[ICD9: 780.4] Diagnosis: DIARRHEA[ICD9: 787.91] Belia BRUNSON BushraMayda RALF Peguero [facility] CPT-4: 34504 04/06/2013 ([id number]) OFFICE/OUTPATIENT VISIT EST Diagnosis: URINARY TRACT INFECTION[ICD9: 599.0] Diagnosis: URINARY RETENTION[ICD9: 788.20] Beliahanna BRUNSON BushraMayda ANUSHKA [facility] CPT-4: 88748 11/10/2012 ([id number]) OFFICE/OUTPATIENT VISIT EST Diagnosis: TACHYCARDIA[ICD9: 785.0] Diagnosis: SYNCOPE AND COLLAPSE[ICD9: 780.2] Diagnosis: CONSCIOUSNS ALTERAT NEC[ICD9: 780.09] Belia CALVO BushraMayda ANUSHKA [facility] CPT-4: 47390 09/02/2012 OFFICE/OUTPATIENT VISIT EST Diagnosis: TACHYCARDIA[ICD9: 785.0] Diagnosis: SYNCOPE AND COLLAPSE[ICD9: 780.2] Belia Paredes BushraMayda ANUSHKA [facility] CPT-4: 93645 08/04/2012 ([id number]) OFFICE/OUTPATIENT VISIT EST Diagnosis: Loss of consciousness[ICD9: 780.09] Diagnosis: Tachycardia[ICD9: 785.0] Diagnosis: MALAISE AND FATIGUE[ICD9: 780.79] Belia Paredes BushraMayda ANUSHKA [facility] CPT-4: 76535 07/21/2012 ([id number]) OFFICE/OUTPATIENT VISIT EST Diagnosis: BRONCHITIS, ACUTE[ICD9: 466.0] Diagnosis: ASTHMA NOS[ICD9: 493.90] Belia BRUNSON BushraMayda KIESHA VIRGILIO [facility] CPT-4: 88802 07/02/2012 ([id number]) OFFICE/OUTPATIENT VISIT EST Diagnosis: CEPHALGIA[ICD9: 784.0] Belia BRUNSON BushraMayda ZACHARYANT Peguero [facility] CPT-4: 76935 06/25/2012 ([id number]) OFFICE/OUTPATIENT VISIT EST Diagnosis: GERD[ICD9: 530.81] Diagnosis: DIARRHEA[ICD9: 787.91] Diagnosis: URINARY TRACT INFECTION[ICD9: 599.0] Diagnosis: ASTHMA NOS[ICD9: 493.90] Diagnosis: ALLERGIC RHINITIS[ICD9: 477.9] Belia HSUQUELINE Bushra Mayda ANUSHKA [facility] CPT-4: 17114 06/24/2012 ([id number]) OFFICE/OUTPATIENT VISIT EST Diagnosis: MIGRAINE NOS/NOT INTRCBL[ICD9: 346.90] Diagnosis: TREMOR NEC[ICD9: 333.1] Diagnosis: CHRONIC PAIN SYNDROME[ICD9: 338.4] Belia Zacharynilson SALAZAR BushraMayda LUIS [employer] [facility] CPT-4: 94582 05/20/2012 ([id number]) OFFICE/OUTPATIENT VISIT EST Diagnosis: DIZZINESS/VERTIGO[ICD9: 780.4] Diagnosis: PALPITATIONS[ICD9: 785.1] Diagnosis: TREMOR NEC[ICD9: 333.1] Diagnosis: ANXIETY STATE NOS[ICD9: 300.00] Diagnosis: POSTTRAUMATIC STRESS DISORDER[ICD9: 309.81] Belia CORNELLLINE BushraMayda LUIS [employer] [facility] CPT-4: 05716 05/08/2012 ([id number]) OFFICE/OUTPATIENT VISIT EST Diagnosis: MIGRAINE NOS/NOT INTRCBL[ICD9: 346.90] Diagnosis: FIBROMYALGIA[ICD9: 729.1] Diagnosis: SYNCOPE AND COLLAPSE[ICD9: 780.2] Diagnosis: Diabetic peripheral neuropathy[ICD9: 250.60] Belia Humphriesisabellaannie BELIA BushraMayda LUIS [employer] [facility] CPT-4: 57453 04/22/2012 OFFICE/OUTPATIENT VISIT EST Diagnosis: ROTATOR CUFF DIS NEC[ICD9: 726.19] Diagnosis: JOINT PAIN-SHLDER[ICD9: 719.41] Diagnosis: DYSPEPSIA[ICD9: 536.8] Belia Zacharynilson BELIA BushraMayda RALF [employer] [facility] CPT-4: 55693 02/13/2012 ([id number]) OFFICE/OUTPATIENT VISIT EST Diagnosis: MIGRAINE NOS/NOT INTRCBL[ICD9: 346.90] Diagnosis: GERD[ICD9: 530.81] Diagnosis: DYSPEPSIA[ICD9: 536.8] Belia TomlinsonMayda RALF Peguero [facility] CPT-4: 45766 01/28/2012 OFFICE/OUTPATIENT VISIT EST Diagnosis: CEPHALGIA[ICD9: 784.0] Diagnosis: MIGRAINE NOS/NOT INTRCBL[ICD9: 346.90] Diagnosis: GERD[ICD9: 530.81] Diagnosis: INSOMNIA NOS[ICD9: 780.52] Belia CORNELLLINE Yuridia DOMINGUEZ [facility] CPT-4: 10949 12/26/2011 ([id number]) OFFICE/OUTPATIENT VISIT EST Diagnosis: CEPHALGIA[ICD9: 784.0] Diagnosis: MIGRAINE NOS/NOT INTRCBL[ICD9: 346.90] Diagnosis: MALAISE AND FATIGUE[ICD9: 780.79] Diagnosis: FIBROMYALGIA[ICD9: 729.1] Diagnosis: ALLERGIC RHINITIS[ICD9: 477.9] Belia Humphriesisabellaannie HSUBELIA Bushra Mayda [facility] C[facility]: 38029 11/14/2011 ([id number]) OFFICE/OUTPATIENT VISIT EST Diagnosis: MALAISE AND FATIGUE[ICD9: 780.79] Diagnosis: MUSCLE WEAKNESS-GENERAL[ICD9: 728.87] Diagnosis: MIGRAINE NOS/NOT INTRCBL[ICD9: 346.90] Diagnosis: JOINT PAIN-SHLDER[ICD9: 719.41] Belia CORNELLLINE BushraMayda [facility] C[facility]: 37530 09/12/2011 ([id number]) OFFICE/OUTPATIENT VISIT EST Diagnosis: CONCUSSION[ICD9: 850.9] Diagnosis: Ataxia[ICD9: 781.3] Diagnosis: DIZZINESS/VERTIGO[ICD9: 780.4] Belia CORNELLLINE Bushra Mayda ANUSHKA [facility] CPT-4: 30938 08/15/2011 ([id number]) OFFICE/OUTPATIENT VISIT EST Diagnosis: THROMBOPHLEBITIS[ICD9: 451.9] Diagnosis: Subacromial bursitis[ICD9: 726.19] Diagnosis: ALLERGIC RHINITIS[ICD9: 477.9] Diagnosis: Lipoma[ICD9: 214.9] Belia HSUQUECLAYTON [facility] CPT-[facility]: 17671 08/09/2011 ([id number]) OFFICE/OUTPATIENT VISIT EST Diagnosis: THROMBOPHLEBITIS[ICD9: 451.9] Diagnosis: Arm pain[ICD9: 729.5] Diagnosis: Clostridium difficile colitis[ICD9: 008.45] Diagnosis: URINARY TRACT INFECTION[ICD9: 599.0] [facility] 32342 07/03/2011 ([id number]) OFFICE/OUTPATIENT VISIT EST Diagnosis: ARTHRALGIA-MULTIPLE SITES[ICD9: 719.49] Diagnosis: Muscle cramp[ICD9: 729.82] Diagnosis: INSOMNIA NOS[ICD9: 780.52] [facility]: 67065 06/04/2011 OFFICE/OUTPATIENT VISIT EST Diagnosis: Headache[ICD9: 784.0] Diagnosis: Allergic rhinitis[ICD9: 477.9] [facility]: 28753 05/03/2011 OFFICE/OUTPATIENT VISIT EST Diagnosis: LUMB/LUMBOSAC DISC DEGEN[ICD9: 722.52] Diagnosis: MIGRAINE NOS/NOT INTRCBL[ICD9: 346.90] Diagnosis: CHRONIC PAIN SYNDROME[ICD9: 338.4] Diagnosis: RESTLESS LEGS SYNDROME[ICD9: 333.94] [facility]: 73590 04/05/2011 OFFICE/OUTPATIENT VISIT EST Diagnosis: MIGRAINE NOS/NOT INTRCBL[ICD9: 346.90] Diagnosis: GERD[ICD9: 530.81] Belia REID [facility] CPT-4: 93519 03/08/2011 OFFICE/OUTPATIENT VISIT EST Diagnosis: URINARY TRACT INFECTION[ICD9: 599.0] Diagnosis: Vertigo[ICD9: 780.4] Diagnosis: GERD[ICD9: 530.81] [facility]: 91712 01/24/2011 OFFICE/OUTPATIENT VISIT EST Diagnosis: Hypotension[ICD9: 458.9] Diagnosis: Syncopal episodes[ICD9: 780.2] Diagnosis: MIGRAINE NOS/NOT INTRCBL[ICD9: 346.90] Diagnosis: MALAISE AND FATIGUE[ICD9: 780.79] Belia Paredes SMayda ZACHARYNDER DO [facility] CPT-4: 73870 01/02/2011 OFFICE/OUTPATIENT VISIT EST Diagnosis: Tinea cruris[ICD9: 110.3] Diagnosis: Intertrigo[ICD9: 695.89] Diagnosis: MIGRAINE NOS/NOT INTRCBL[ICD9: 346.90] Belia GaribayLUBNA SMayda ORENDER DO [facility] CPT-4: 12468 12/07/2010 OFFICE/OUTPATIENT VISIT EST Diagnosis: PALPITATIONS[ICD9: 785.1] Diagnosis: ANXIETY STATE NOS[ICD9: 300.00] Belia BRUNSON BushraMayda ZACHARYNDER DO [facility] CPT-4: 40278 11/16/2010 OFFICE/OUTPATIENT VISIT EST Diagnosis: URINARY TRACT INFECTION[ICD9: 599.0] Diagnosis: MIGRAINE NOS/NOT INTRCBL[ICD9: 346.90] Iraida GaribayLUBNA S. ORENDER DO [facility] CPT-4: 34007 11/02/2010 OFFICE/OUTPATIENT VISIT EST Diagnosis: ALLERGIC RHINITIS[ICD9: 477.9] Diagnosis: ANXIETY STATE NOS[ICD9: 300.00] Belia BRUNSON SMayda ZACHARYNDER DO [facility] CPT-4: 60801 10/18/2010 OFFICE/OUTPATIENT VISIT EST Belia Shi ZACHARY NDER DO [facility] CPT- 4: 97524 09/19/2010 OFFICE/OUTPATIENT VISIT EST Belia Shi ORE NDER DO [facility] CPT- 4: 04801 09/06/2010 ([id number]) OFFICE/OUTPATIENT VISIT EST Belia CASILLAS PhoenixLUBNA SMayda ORENDER DO [facility] CPT-4: 17343 08/10/2010 ([id number]) OFFICE/OUTPATIENT VISIT EST Belia CASILLAS PhoenixLUBNA SMayda ORENDER DO [facility] CPT-4: 67572 05/11/2010 ([id number]) OFFICE/OUTPATIENT VISIT, EST [facility] CPT-4: 72559 04/06/2010 ([id number]) OFFICE/OUTPATIENT VISIT, RIOS [facility] CPT-4: 43043 02/09/2010 ([id number]) OFFICE/OUTPATIENT VISIT, RIOS HSU [facility]INE [facility] CPT-4: 28229 01/05/2010 ([id number]) OFFICE/OUTPATIENT VISIT, EST Belia HSU [facility] CPT-4: 15923 12/07/2009 ([id number]) OFFICE/OUTPATIENT VISIT, EST Belia HSU [facility] CPT-4: 96820 11/08/2009 ([id number]) OFFICE/OUTPATIENT VISIT, RIOS [facility] CPT-4: 14114 10/24/2009 ([id number]) OFFICE/OUTPATIENT VISIT, RIOS [facility] CPT-4: 32564 07/25/2009 ([id number]) OFFICE/OUTPATIENT VISIT, RIOS [facility] CPT-4: 03042 05/26/2009 Plan of Care Planned Activity Notes [...] ICD-10 : K59.00 08/04/2019 Appointment: Pattie Sotomayor [address] [place], [place] [id number] ACUTE ILLNESS 08/04/2019 Visit Diagnosis Plan: Diarrhea Discussion: Restart Col estid at once daily ICD-9 : 787.91 ICD-10 : R19.7 07/06/2019 Visit Diagnosis Plan: Inspiratory stridor Discussion: Continue oxygen via NC at 2 L Continue ativan at QID Follow Up: 4 weeks ICD-9 : 786.1 ICD-10 : R06.1 07/06/2019 Appointment: Belia Reid WPtel: [phone] [facility] TELEMEDICINE 07/06/2019 Visit Diagnosis Plan: Left leg [...] R06.00 06/24/2019 Appointment: Belia Reid WPtel: [phone] [facility] TELEMEDICINE 06/24/2019 Visit Diagnosis Plan: Acute bronchitis Discussion: Cov er with levaquin Increase SVNs with albuterol to QID Has oxygen using q HS routinely and prn To ER if oxygen levels drop or worsening respiratory symptoms ICD-9 : 466.0 ICD-10 : J20.9 06/16/2019 Visit Diagnosis Plan: Colitis Discussion: Levaquin/Fla gyl [place] Diet ICD-9 : 558.9 ICD-10 : K52.9 06/16/2019 Appointment: Belia Reid: [address] [place] [address] TELEMEDICINE 06/16/2019 Patient Education: Patel Kate [phone] [email or web address] Completed 06/16/2019 Visit Diagnosis Plan: Diarrhea Discussion: Vancomycin for 10 days and notify if not improving or worsening BLAND diet Hydrate ICD-9 : 787.91 ICD-10 : R19.7 06/08/2019 Appointment: Belia Reid WPtel: [address] [place] [address] TELEMEDICINE 06/08/2019 Visit Diagnosis Plan: Acute febrile illness Discussion : Notify if worsens ICD-9 : 780.60 ICD-10 : R50.9 05/26/2019 Visit Diagnosis Plan: Colitis Discussion: Flagyl plus cipro to cover for both colitis and UTI Notify or to ER if worsening ICD-9 : 558.9 ICD-10 : K52.9 05/26/2019 Appointment: Belia Reid WPtel: [address] [place] [address] TELEMEDICINE 05/26/2019 Appointment: Pattie Sotomayor [address] RESCHEDULED 05/18/2019 Visit Diagnosis Plan: Chronic obstructive pulmonary di sease, unspecified Discussion: Recommend pulmonary rehab Patient states she never went to pulmonary rehab due to cost as well as transportation issues Finish trelagy Stop singulair Decrease hydroxyzine to 25mg po q HS Fwup [address] scan of Chest results discussed ICD-9 : 496 ICD-10 : J44.9 05/13/2019 Appointment: Belia Reid WPtel: [address] [place] [address] Hospital Follow Up 05/13/2019 Visit Diagnosis Plan: COUGH Discussion: Check CT scan of chest ICD-9 : 786.2 ICD-10 : R05 05/06/2019 Visit Diagnosis Plan: Stridor Discussion: Add Trelagy 1 p daily Add Singulair May need to see new float remover ICD-9 : 786.1 ICD-10 : R06.1 05/06/2019 Appointment: Belia Reid WPtel: [address] [place] [address] FOLLOW UP 05/06/2019 Patient Education: Singulair- OptimizeRX Coupon [id number] https://www.Nanosys/sampleVolve/resources/getResource/61/3116088q-h41v-13j0-bl Completed 05/06/2019 Appointment: Belia Reid WPtel: [address] [place] [address] US RESCHEDULED 04/30/2019 Visit Diagnosis Plan: Muscle, [...] : R06.1 04/29/2019 Appointment: Belia Reid WPtel: [address] [place] [address] Hospital Follow Up 04/29/2019 Patient Education: Valium- OptimizeRX Coupon [id number] https://www.Nanosys/sampleVolve/resources/getResource/61/q06039og-695u-0u26-9b Completed 04/29/2019 Visit Diagnosis Plan: Weight gain [...] ICD-10 : R10.9 04/16/2019 Appointment: Pattie Sotomayor [address] [place] [address] ACUTE ILLNESS 04/16/2019 Patient Education: cyclobenzaprine- OptimizeRX Coudelma [id number] https://www.Nanosys/Verious/resources/getResource/61/hk45m2t2-8869-3408-h2 Completed 04/16/2019 Visit Diagnosis Plan: Generalized pruritus Discussion: Hydroxyzine 25mg po TID for itching and anxiety ICD-9 : 698.9 ICD-10 : L29.9 04/08/2019 Visit Diagnosis Plan: Migraine, unspecif ied, not intractable, without status migrainosus Discussion: Increase gabapentin to 600mg po BID ICD-9 : 346.90 ICD-10 : G43.909 04/08/2019 Appointment: Belia Reid WPtel: [address] [place] [address] ACUTE ILLNESS 04/08/2019 Visit Diagnosis Plan: Cervicalgia [...] : M75.52 01/22/2019 Appointment: Belia Reid WPtel: [address] [place] [address] Hospital Follow Up 01/22/2019 Visit Diagnosis Plan: Abdominal pain Discussion: urine culture sent to assess for any infection. rocephin given in office to cover for pyelonephritis. instructed to push fluids. call office with any new or worsening symptoms. ICD-9 : 789.00 ICD-10 : R10.9 01/07/2019 Appointment: Pattie Sotomayor [address] [place], [place] [address] ACUTE ILLNESS 01/07/2019 Visit Diagnosis Plan: Low back pain Discussion: Stat C T of abdomen/pelvis now ICD-9 : 724.2 ICD-10 : M54.5 12/24/2018 Appointment: Belia Reid WPtel: [address] [place] [address] FOLLOW UP 12/24/2018 Visit Diagnosis Plan: Fibromyalgia [...] : G43.909 11/20/2018 Appointment: Belia Reid WPtel: [address] [place] [address] ACUTE ILLNESS 11/20/2018 Patient Education: baclofen- OptimizeRX Coupon [id number] https://www.Verious.School Yourself/samplemd/resources/getResource/61/7s1363t9-ll9n-34op-21 Completed 11/20/2018 Visit Diagnosis Plan: Migraine, unspecif ied, intractable, without status migrainosus Discussion: toradol/phenergan given in o ffice (60 mg toradol, 12.5 mg phenergan). instructed to call if no improvement or worsening. instructed to follow up with locomotive engineer diesel since headaches are occurring more frequently to make sure vision is not the cause. ICD-9 : 346.91 ICD-10 : G43.919 11/04/2018 Visit Diagnosis Plan: Acute sinusitis, unspecified Dis cussion: zithromax prescribed to cover for sinus infection due to length of symptoms and clinincal s/s. ICD-9 : 461.9 ICD-10 : J01.90 11/04/2018 Appointment: Pattie Sotomayor [address] [place], [place] [id number] ACUTE ILLNESS 11/04/2018 Appointment: Belia Reid WPtel:[phone] [facility] [facility] [place] CANCELED 09/24/2018 Visit Diagnosis Plan: Type 2 diabetes me llitus with diabetic neuropathy, unspecified Discussion: Retry gabapentin 300mg po q HS ICD-9 : 250.60 ICD-10 : E11.40 09/18/2018 Visit Diagnosis Plan: Vitamin D deficiency, unspecifie d Discussion: Increase Vitamin D3 to 10,000 u daily ICD-9 : 268.9 ICD-10 : E55.9 09/18/2018 Visit Diagnosis Plan: Encounter for [facility] adult medical examination without abnormal findings [...] I10 09/18/2018 Appointment: Belia Reid WPtel: [address] [facility] Annual Well Visit 09/18/2018 Patient Education: gabapentin- OptimizeRX Coupon [phone] https://www.Verious.com/samplemd/resources/getResource/61/7z93dq66-0bi8-9huu-z0 Completed 09/18/2018 Visit Diagnosis Plan: Pain in [...] ICD-10 : M54.89 09/08/2018 Appointment: Pattie Sotomayor [address] [place], [place] [address] ACUTE ILLNESS 09/08/2018 Patient Education: prednisone- OptimizeRX Coupon [id number] https://www.Verious.com/samplemd/resources/getResource/61/4g9sd77w-7028-84g4-iq Completed 09/08/2018 Visit Diagnosis Plan: Acute stress [...] ICD-10 : L29.9 08/20/2018 Appointment: Belia Reidtel: [address] [place] [address] ACUTE ILLNESS 08/20/2018 Patient Education: Lexapro- OptimizeRX Coupon [id number] Completed 08/20/2018 Patient Education: hydroxyzine HCl- OptimizeRX Coupon [id number] Completed 08/20/2018 Care Plan: MAMMOGRAM SCREENING INC : 2 6347-5 Pending 08/20/2018 Visit Diagnosis Plan: Paroxysmal atrial fibrillation D iscussion: Discuss eliquis need with cardiology at [facility] due to cost ICD-9 : 427.31 ICD-10 : I48.0 06/19/2018 Visit Diagnosis Plan: Hypotension due to drugs Discuss ion: Discussed decreasing cardizem dose due to low BP and edema but sees cardiology next week Follow Up: 1 months ICD-9 : 458.8 ICD-10 : I95.2 06/19/2018 Appointment: Belia Reid WPtel: [facility] [address] FOLLOW UP 06/19/2018 Visit Diagnosis Plan: [...] : R61 06/09/2018 Appointment: Belia Reid WPtel: [address] [place], [place] [address] FOLLOW UP 06/09/2018 Care Plan: CHEST X-RAY 2VW FRONTAL&LATL LOINC : 28449-9 Pending 05/26/2018 Visit Diagnosis Plan: Stridor Discussion: [...] : I47.1 05/21/2018 Appointment: Belia Reid WPtel: [address] [place], [place] [address] Hospital Follow Up 05/21/2018 Visit Diagnosis Plan: Cervical disc diso rder with radiculopathy, unspecified cervical region Discussion: Scheduled for surgery on 06/02 10/[address] Faulkner ICD-9 : 722.0 ICD-10 : M50.10 04/16/2018 Appointment: Belia Reid WPtel: [address] [place], [place] [address] [facility] Follow Up 04/16/2018 Visit Diagnosis Plan: [...] 346.91 ICD-10 : G43.919 04/01/2018 Appointment: Pattie Sootmayor [address] [place] [address] ACUTE ILLNESS 04/01/2018 Appointment: Belia Reid WPtel: [address] [place] [address] 03/17/2018 Visit Diagnosis Plan: Erythema intertrigo Discussio: [...] : J44.1 03/06/2018 Appointment: Belia Reid WPtel: [address] [place] [address] Hospital Follow Up 03/06/2018 Visit Diagnosis Plan: Cervicalgia Discussion: spoke wi th dr. reid about patient. increased gabapentin to bid and started on celebrex bid. tramadrol rx written out to take prn. keep scheduled appt next week for myelogram. ICD-9 : 723.1 ICD-10 : M54.2 02/05/2018 Appointment: Pattie Sotomayor [address] [place] [address] ACUTE ILLNESS 02/05/2018 Care Plan: X-RAY EXAM NECK SPINE 4/5VWS cervical LOINC : 05506-5 Pending 01/21/2018 Visit Diagnosis Plan: Candidiasis of [...] : M54.2 01/20/2018 Appointment: Pattie Sotomayor [address] [place] [address] ACUTE ILLNESS 01/20/2018 Visit Diagnosis Plan: Pain in thoracic spine Discussio n: Proceed with CT scan of thoracic spine Will likely need PT ICD-9 : 724.1 ICD-10 : M54.6 12/25/2017 Appointment: Belia Reid WPtel: [address] [place] [address] [place] FOLLOW UP 12/25/2017 Care Plan: CT THORAX W/O DYE LOINC : 473 66-0 Pending 12/25/2017 Visit Diagnosis Plan: Pain in thoracic spine Discussio n: Stretches Alternated heat/ice Topical aspercreme with lidocaine Flexeril Recheck 1 week Flu and Pneumovax given ICD-9 : 724.1 ICD-10 : M54.6 12/17/2017 Appointment: Belia Reid WPtel: [address] [place], [place] [phone] ACUTE ILLNESS 12/17/2017 Patient Education: Patient Medication [...] : J44.1 10/30/2017 Appointment: Belia Reid WPtel: [address] [place], [place] [address] FOLLOW UP 10/30/2017 Patient Education: Patient Medication Summary Completed 10/30/2017 Visit Diagnosis Plan: Chronic obstructiv e pulmonary disease with acute lower respiratory infection Discussion: Continue SVNs with albuterol q4hrs Add Trelagy 1 inhalation daily Finish steroids Increase water intake Follow Up: 1 weeks ICD-9 : 496 ICD-10 : J44.0 10/23/2017 Appointment: Belia Reid WPtel: [address] [place], [place] [phone] WORK IN 10/23/2017 Patient Education: Patient Medication Summary Completed 10/23/2017 Appointment: Belia Reid WPtel: [address] [place], [place] [phone] NO SHOW 10/16/2017 Visit Diagnosis Plan: Confusional [...] E11.65 09/17/2017 Appointment: Belia Reid WPtel: [address] [place], [place] [phone] Annual Well Visit 09/17/2017 Patient Education: Patient Medication Summary Completed 09/17/2017 Appointment: Belia Reid WPtel: [address] [place], [place] [phone] US INJECTION 08/26/2017 Patient Education: Patient Medication Summary Completed 08/26/2017 Appointment: Belia Reidtel: [address] [place], [place] [phone] US CANCELED 07/31/2017 Visit Diagnosis Plan: Encounter [...] ICD-10 : J20.9 07/19/2017 Appointment: Pattie Sotomayor [facility] [address] ACUTE ILLNESS 07/19/2017 Patient Education: Patient Medication Summary Completed 07/19/2017 Care Plan: MAMMOGRAM SCREENING LOINC : 2 6347-5 Pending 07/19/2017 Patient Education: Patient Medication Summary Completed 06/05/2017 Care Plan: LIPID PANEL LOINC : 39839-9 Pending 06/05/2017 Care Plan: A1C HPLC LOINC : 36659-1 Pending 06/05/2017 Visit Diagnosis Plan: Rash and [...] ICD-10 : R21 05/29/2017 Appointment: Pattie Sotomayor [facility] [employer] [id number] FOLLOW UP 05/29/2017 Patient Education: Patient Medication Summary Completed 05/29/2017 Visit Diagnosis Plan: Tinea corporis Discussion: Diflu can and topical nystatin Follow Up: 2 weeks ICD-9 : 110.5 ICD-10 : B35.4 05/07/2017 Visit Diagnosis Plan: Diarrhea, unspecified Discussion : Diflucan Cholestyramine Recheck 2weeks ICD-9 : 787.91 ICD-10 : R19.7 05/07/2017 Appointment: Belia Reidtel: [address] [place], [place] [phone] US FOLLOW UP 05/07/2017 Patient Education: Patient Medication Summary Completed 05/07/2017 Appointment: Belia Reidtel: [address] [place] [address] US RESCHEDULED 04/30/2017 Visit Diagnosis Plan: Chronic obstructiv e pulmonary disease with (acute) exacerbation Discussion: Finish prednisone Continue S VNS with albuterol ICD-9 : 491.21 ICD-10 : J44.1 03/18/2017 Visit Diagnosis Plan: Stridor Discussion: Increase Ati van 0.5mg po to TID routinely for next week then can go back to prn ICD-9 : 786.1 ICD-10 : R06.1 03/18/2017 Appointment: Belia Reid WPtel: [address] [place] [address] ER Follow UP 03/18/2017 Patient Education: Patient [...] ICD-10 : E11.65 02/27/2017 Appointment: Belia Reidtel: [address] [place], [place] [phone] US FOLLOW UP 02/27/2017 Patient Education: Patient [...] ICD-10 : E11.65 02/22/2017 Appointment: Pattie Sotomayor [address] [place], [place] [phone] ACUTE ILLNESS 02/22/2017 Patient Education: Patient [...] : J18.9 01/23/2017 Appointment: Belia Reid WPtel: [address] [place], [place] [phone] ER Follow UP 01/23/2017 Patient Education: Patient Medication Summary Completed 01/23/2017 Appointment: Pattie Sotomayor [address] [place], [place] [phone] CANCELED 01/17/2017 Appointment: Pattie Sotomayor [address] [place], [place] [phone] Annual Well Visit 01/14/2017 Visit Diagnosis Plan: Type 2 diabetes mellitus with hy perglycemia Discussion: Check CMP, HbA1C Flu shot and Prevnar 13 given Follow Up: 3 months ICD-9 : 250.02 ICD-10 : E11.65 12/20/2016 Visit Diagnosis Plan: Localized edema Discussion: Low Na diet Compression socks/Elevate feet ICD-9 : 782.3 ICD-10 : R60.0 12/20/2016 Appointment: Belia Reid WPtel: [facility] [place] FOLLOW UP 12/20/2016 Patient Education: Patient Medication Summary Completed 12/20/2016 Patient Education: Patient Medication Summary Completed 10/10/2016 Visit Plan: Xrays of cervical, thoracic and lumbar spine at [facility] for Mobic (stop NSAIDS except Tylenol) and Flexeril UA sent for C&S Using SVN Call in 2-3 days if pain not improved or any worsening 10/08/2016 Appointment: Celeste Ferreira [facility]Ptel[facility] [facility] [facility] 10/08/2016 Patient Education: Patient Medication [...] 09/19/2016 Appointment: Belia Reid WPtel: [facility] [place] 09/18 confirmed`sl FOLLOW UP 09/19/2016 Patient Education: [...] : R10.84 08/20/2016 Appointment: Belia Reid WPtel: [address] [place], [place] [address] 08/16 confirmed~sl FOLLOW UP 08/20/2016 Patient Education: [...] J44.9 06/19/2016 Appointment: Belia Reid WPtel: [address] [place], [place] [phone] 06/18 confirmed ~ Hospital Follow Up 06/19/2016 [...] : Z87.440 06/04/2016 Appointment: Belia Reid WPtel: [address] [place] [address] 06/01 confirmed~sl FOLLOW UP 06/04/2016 Patient Education: [...] : R06.1 05/02/2016 Appointment: Belia Reid WPtel: [address] [place] [address] [facility] 05/02/2016 Patient Education: [...] : N39.0 04/03/2016 Appointment: Belia Reid WPtel: [address] [place] [address] 04/02 [facility] Hospital Follow Up 04/03/2016 Patient Education: Patient Medication Summary Completed 04/03/2016 Visit Plan: Lungs are clear Her symptoms and exam are all upper airway restriction/constriction Can try supportive care Rx as above Follow up PRN 02/29/2016 Appointment: Lidia Hwang [address] [place] [address] ACUTE ILLNESS 02/29/2016 Patient Education: Patient Medication Summary Completed 02/29/2016 Visit Plan: Toradol/Phenergan today for Migraine Change to Clindamycin to cover lactobacillus for UTI Cover with flagyl due to hx of C. Diff 02/02/2016 Appointment: Belia Reid WPtel: [address] [place] [address] 01/31 confirmed` ACUTE ILLNESS 02/02/2016 Patient Education: Patient Medication Summary Completed 02/02/2016 Visit Plan: Increase neurontin to 300mg q AM and 600mg q PM Discussed neurology re-evaluation Flu shot given Need to check on Pneumonia shot Rx written out for albuterol 01/05/2016 Appointment: Belia Reid WPtel: [address] [place], [place] [phone] 01/03 confirmed ~sl Annual Well Visit 01/05/2016 Patient Education: Patient Medication Summary Completed 01/05/2016 Visit Plan: Cipro Culture urine hydrate Flexeril refilled Alternate heat and ice for back Increase gabapentin to 300mg po BID Notify if worsens 12/05/2015 Appointment: Belia Reid WPtel: [facility] [place] 11/30 confirmed~sl ACUTE ILLNESS 12/05/2015 Patient Education: Patient Medication Summary Completed 12/05/2015 Patient Education: Patient Medication Summary Completed 10/27/2015 Care Plan: COMPREH[place]AB[place] : 09138-7 Pending 10/27/2015 Care Plan: A1C HPLC LOINC : 98666-4 Pending 10/27/2015 Visit Plan: Lungs are CTA today and is f eeling improved overall Finish meds as ordered Continue inhalers and neb treatments Discussed migraine treatment options She does not feel she needs anything additional added today Refill of Januvia sent since no samples are available today 10/26/2015 Appointment: Lidia Hwang [address] Hospital Follow Up 10/26/2015 Appointment: Lidia Hwang 2305 [facility] CANCELED 10/26/2015 Patient Education: Patient Medication Summary Completed 10/26/2015 Patient Education: Januvia - 18+ - KENNETH - No [place] Completed 10/26/2015 Visit Plan: Office dip still abnormal Cu lture pending Switch to cipro - stop macrobid Push fluids - avoid caffeine Will call with culture results when available Follow up if worsening 10/05/2015 Appointment: Lidia Hwang [address] ER Follow UP 10/05/2015 Patient Education: Patient Medication Summary Completed 10/05/2015 Visit Plan: Proceed with PT for document ation of ROM and strength of all extremities Proceed with Power Mobility Device Trial of neurontin 300mg q HS--lyrica helped but patient unable to afford Recheck 1month 09/15/2015 Appointment: Belia Reid WPtel: [phone] [facility] 09/13 confirmed~sl SPECIAL 09/15/2015 Patient Education: Patient Medication Summary Completed 09/15/2015 Visit Plan: Fille out Loan Discharge Pap erwork for total and permanent disability 08/25/2015 Patient Education: Patient Medication Summary Completed 08/25/2015 Visit Plan: Discussed with Dr Anushka Haywood at CT of head Will get last date of carotid doppler from her vp of digital marketing and update if needed 08/24/2015 Appointment: [facility] [facility] 08/22 confirmed~sl ACUTE ILLNESS 08/24/2015 Patient Education: Patient Medication Summary Completed 08/24/2015 Patient Education: Patient Medication Summary Completed 08/24/2015 Care Plan: US EXAM OF HEAD AND NECK carotid Ultrasound LOIN C : 74477-0 Pending 08/24/2015 Visit Plan: Long discussion about diet A ccuchecks daily Check HbA1C, CMP Change requip to mirapex 07/05/2015 Appointment: Belia Reid WPtel: [phone] [facility] 07/03 confirmed ~sl FOLLOW UP 07/05/2015 Patient Education: Patient Medication Summary Completed 07/05/2015 Visit Plan: Add Breo ellipta 100 1 p BID Continue SVNs with duoneb QID 06/06/2015 Appointment: Belia Reid WPtel: [address] [place], [place] [phone] Patient is calling for a ride, then [...] not improving 05/23/2015 Appointment: Huong Osborne WPtel: [address] [place] [address] ACUTE ILLNESS 05/23/2015 Appointment: Lidia Hwang [address] [place] [address] ER Follow UP 05/23/2015 Patient Education: Patient Medication Summary Completed 05/23/2015 Visit Plan: Check pancreatic enzymes and US of pancreas as patient can't understand why she has diabetes since has no family history Discussed weight, diet, exercise all play an important role in diabetes and are risk factors as well Continue Januvia and accuchecks daily 05/05/2015 Appointment: Belia Reid WPtel: [address] [place] [address] US FOLLOW UP 05/05/2015 Patient Education: Patient Medication Summary Completed 05/05/2015 Care Plan: US EXAM ABDOM COMPLETE LOINC : 05808-4 Ordered 05/05/2015 Visit Plan: Start Januvia 100mg daily [place] with diflucan and culture urine Accuchecks daily alternating times Recheck 6weeks 03/30/2015 Appointment: Belia Reid WPtel: [address] [place] [address] 03/29 confirmed~lb FOLLOW UP 03/30/2015 Patient Education: Patient Medication Summary Completed 03/30/2015 Appointment: Belia Reid WPtel: [address] [place], [place] [phone] [place] 03/01 needs reschedule due to payment and insurance ~sl FOLLOW UP 03/02/2015 Visit Plan: Patient was just in ER last night so has not filled scripts yet Start Carafate and Flagyl and Cipro Add Hyophen 1 po BID Recheck 1mo 02/03/2015 Appointment: Belia Reid WPtel: [address] [place], [place] [phone] 02/02lm ~sl...02/03/15 appt confirmed cn ACUTE I LLNESS 02/03/2015 Patient Education: Patient Medication Summary Completed 02/03/2015 Visit Plan: Warm soaks to vaginal area K elex and Diflucan and observe Zofran to use prn 12/29/2014 Appointment: Belia Reid WPtel: [address] [place] [address] 12/28 Confirmed ~ ACUTE ILLNESS 12/29/2014 Patient Education: Patient Medication Summary Completed 12/29/2014 Appointment: Huong Osborne WPtel: [address] [place], [place] [phone] FOLLOW UP 09/24/2014 Appointment: Belia Reid WPtel: [address] [place] [address] 09/15 confirmed - FOLLOW UP 09/16/2014 Visit Plan: Increase requip to 2mg po BI D Increase lyrica to 225mg total a day by adding an extra 75mg in AM Recheck in 2weeks Continue to patch left eye while sleeping 09/02/2014 Appointment: Belia Reid WPtel: [address] [place], [place] [phone] 09/01 appt confirmed [facility] Follow Up 09/02 Patient Education: Patient Medication Summary Completed 09/02/2014 Visit Plan: To [facility]anna for observat ion to R/O CVA 08/25/2014 Appointment: Huong Osborne WPtel: [address] [place], [place] [phone] ACUTE ILLNESS 08/25/2014 Patient Education: Patient Medication Summary Completed 08/25/2014 Referral: Aaron Jonas WPtel: [facility] [address] [place] location Initiated 04/26/2014 Referral: Brian Srinivasan WPtel: [id number] Initiated 04/20/2014 Appointment: Belia Reid WPtel: [address] [place] [address] ER Follow UP 04/01/2014 Patient Education: Patient Medication Summary Completed 04/01/2014 Care Plan: MYELOGRAPHY NECK SPINE LOINC : 05243-1 Ordered 04/01/2014 Visit Plan: Continue Symbicort 160 at 2p BID Continue SVNs with duoneb at least QID Finish Levaquin Recheck 1mo on lyrica 03/16/2014 Appointment: Belia Reid WPtel: [address] [place], [place] [phone] 03/15 voicemail FOLLOW UP 03/16/2014 Patient Education: Patient Medication Summary Completed 03/16/2014 Visit Plan: Restart SVNs with duoneb QID Repeat prednisone Levaquin Continue symbicort Keep lyrica at same dose Recheck 1week 03/09/2014 Appointment: Belia Reid WPtel: [address] [place], [place] [phone] FOLLOW UP 03/09/2014 Patient Education: Patient Medication Summary Completed 03/09/2014 Appointment: Belia Reid WPtel: [address] [place], [place] [phone] 03/03 showed up 15 minutes late for appt -- put her on Huong's side for 10:45am FORGIVEN PER DR FOLLOW UP 03/03/2014 Appointment: Huong Osborne WPtel: [address] [place] [address] [place] FOLLOW UP 03/03/2014 Patient Education: Patient Medication Summary Completed 03/03/2014 Appointment: Huong Osborne WPtel: [address] [place], [place] [phone] ER Follow UP 03/01/2014 Patient Education: Patient Medication Summary Completed 03/01/2014 Visit Plan: Add carafate for this next m onth Increase lyrica to 150mg q HS 02/09/2014 Appointment: Belia Reid WPtel: [address] [place], [place] [phone] Hospital Follow Up 02/09/2014 Patient Education: Patient Medication Summary Completed 02/09/2014 Visit Plan: Increase omeprazole back to 40mg po BID Use requip in AM and add lyrica 75mg q HS Recheck 1mo 12/23/2013 Appointment: Belia Reid WPtel: [address] [place], [place] [phone] FOLLOW UP 12/23/2013 Patient Education: Patient Medication Summary Completed 12/23/2013 Patient Education: Patient Medication Summary Completed 12/04/2013 Appointment: Belia Reid WPtel: [address] [place], [place] [phone] UA 10/30/2013 Patient Education: Patient Medication Summary Completed 10/30/2013 Appointment: Belia Reid WPtel: [address] [place], [place] [phone] 10/21/2013 Patient Education: Patient Medication Summary Completed 10/21/2013 Visit Plan: Cryotherapy as above TAC and hydroxyzine to use prn to itching spots and itching SKs Add Advair HFA 115/21 1 p BID 10/05/2013 Appointment: Belia Reid WPtel: [address] [place], [place] [phone] 10/01 pt called and confirmed ACUTE ILLNESS Patient Education: Patient Medication Summary Completed 10/05/2013 Appointment: Belia Reid WPtel: [address] [place], [place] [phone] will pay copay and part of past balance FOLLOW U P 08/04/2013 Patient Education: Patient Medication Summary Completed 08/04/2013 Appointment: Belia Redi WPtel: [address] [place], [place] [phone] US INJECTION 07/13/2013 Patient Education: Patient Medication Summary Completed 07/13/2013 Appointment: Huong Osborne WPtel: [address] [place], [place] [phone] ACUTE ILLNESS 07/03/2013 Patient Education: Patient Medication Summary Completed 07/03/2013 Visit Plan: Cipro and culture urine 05/27/2013 Appointment: Huong Osborne WPtel: [address] [place], [place] [id number] 05/26 confirmed appt and notified that balance and endoscopy rn y is due at appt time FOLLOW UP 05/27/2013 Patient Education: Patient Medication Summary Completed 05/27/2013 Appointment: Belia Reid WPtel: [address] [place], [place] [id number] [place] UA 05/25/2013 Patient Education: Patient Medication Summary Completed 05/25/2013 Appointment: Belia Reid WPtel: [address] [place], [place] [phone] [place] INJECTION 05/04/2013 Patient Education: Patient Medication Summary Completed 05/04/2013 Appointment: Belia Reid WPtel: [address] [place], [place] [phone] [place] INJECTION 04/17/2013 Patient Education: Patient Medication Summary Completed 04/17/2013 Appointment: Belia Reid WPtel: [address] [place], [place] [phone] [place] INJECTION 04/15/2013 Appointment: Belia Reid WPtel: [address] [place], [place] [phone] 04/02 FOLLOW UP 04/06/2013 Patient Education: Patient Medication Summary Completed 04/06/2013 Visit Plan: Obtain lab results including UA from [facility] 11/10/2012 Appointment: Belia Reid WPtel: [address] [place], [place] [phone] [place] ER Follow UP 11/10/2012 Patient Education: Patient Medication Summary Completed 11/10/2012 Appointment: Belia Reid WPtel: [address] [place] [address] 10/30/12 patient canceled appt due to fin ances. Offered to work something out, patient declined-LB FOLLOW UP 11/05/2012 Visit Plan: Continue Bystolic at current dose Pt has fwup with Neurology on September 16 09/02/2012 Appointment: Belia Reid WPtel: [address] [place] [address] FOLLOW UP 09/02/2012 Patient Education: Patient Medication Summary Completed 09/02/2012 Visit Plan: Continue bystolic at 5mg chris ly Sees Neurology tomorrow Use oxygen at bedtime 08/04/2012 Appointment: Belia Reidtel: [address] [place] [address] FOLLOW UP 08/04/2012 Patient Education: Patient Medication Summary Completed 08/04/2012 Appointment: Belia Reid WPtel: [address] [place] [address] Hospital fwup for 07/21/12. merged appointments FOLLOW UP 07/24/2012 Visit Plan: Start Bystolic 5mg daily for tachycardia Fwup with neurology for further workup Overnight O2 sat 07/21/2012 Appointment: Belia Reidtel: [address] [place] [address] Hospital Follow Up 07/21/2012 Patient Education: Patient Medication Summary Completed 07/21/2012 Visit Plan: SVN with Albuterol QID Add A velox 400mg daily Notify if worsens or persists 07/02/2012 Appointment: Belia Reid WPtel: [address] [place] [address] ACUTE ILLNESS 07/02/2012 Patient Education: Patient Medication Summary Completed 07/02/2012 Appointment: Belia Reidtel: [address] [place] [address] INJECTION 06/25/2012 Patient Education: Patient Medication Summary Completed 06/25/2012 Appointment: Belia Reidl[facility] [phone] [facility] FOLLOW UP 06/24/2012 Patient Education: Patient Medication Summary Completed 06/24/2012 Appointment: Belia Reid WPtel: [address] [place], [place] [id number] 05/19 left message FOLLOW UP 05/20/2012 Patient [...] po TID 05/08/2012 Appointment: Belia Reid WPtel: [facility] ACUTE ILLNESS 05/08/2012 Patient Education: Patient Medication Summary Completed 05/08/2012 Visit Plan: Continue current meds Contin ue lower dose on pain meds and Diazepam Still waiting on paperwork for botox for Migraines Will restart Neurontin at 600mg po q HS Pt going to stop Depakote due to can't afford 04/22/2012 Appointment: Belia Reid WPtel: [address] [place], [place] [id number] 04/21 Hospital Follow Up 04/22/2012 Patient Education: Patient Medication Summary Completed 04/22/2012 Visit Plan: Injection to shoulder as abo ve Continue current meds Has appointment with neurology on HAs in 02/13/2012 Appointment: Belia Reid WPtel: [address] [place], [place] [id number] Pt does not have $10 copay at [facility] t time - will bring it in next week. Kianna iqbal'ed this. - [place] FOLLOW UP 02/13/2012 Patient Education: Patient Medication Summary Completed 02/13/2012 Visit Plan: Proceed with headache specia list Change nexium to Protonix Phenergan to use prn Sumatriptan to use prn Pt still on Inderal 01/28/2012 Appointment: Belia Reid WPtel: [address] [place] [address] ER Follow UP 01/28/2012 Patient Education: Patient [...] for sleep 12/26/2011 Appointment: Belia Reid WPtel: [address] [place] [address] 12/24- appt. confirmed FOLLOW UP 2 Patient Education: Patient Medication Summary Completed 12/26/2011 Appointment: Belia Reid WPtel: [address] [place] [address] [place] FOLLOW UP 11/14/2011 Patient Education: Patient Medication Summary Completed 11/14/2011 Appointment: Belia Reidtel: [address] [place] [address] [place] FOLLOW UP 09/12/2011 Patient Education: Patient Medication Summary Completed 09/12/2011 Visit Plan: Supportive care Decrease Liseth catalino to 50mg q HS Decrease AM dose of Valium to 5mg q HS Use Endocet sparingly 08/15/2011 Appointment: Belia Reid WPtel: [address] [place] [address] ER Follow UP 08/15/2011 Patient Education: Patient Medication Summary Completed 08/15/2011 Appointment: Belia Reid WPtel: [address] [place] [address] [place] Spoke directly to patient yesterday and confirmed the appoin tment. cn ACUTE ILLNESS 08/09/2011 Patient Education: Patient Medication Summary Completed 08/09/2011 Appointment: Belia Reid WPtel: [address] [place] [address] Hospital Follow Up 07/03/2011 Patient Education: Patient Medication Summary Completed 07/03/2011 Appointment: Belia Reid WPtel: [address] [place] [address] FOLLOW UP 06/04/2011 Patient Education: Patient Medication Summary Completed 06/04/2011 Visit Plan: Pt. wants "allergy shot" but in fact wants steroid shot. Will take a break [facility] and try Singulair for 2 weeks. 05/03/2011 Appointment: Iraida Jones WPtel: [address] [place] [address] ACUTE ILLNESS 05/03/2011 Patient Education: Patient Medication Summary Completed 05/03/2011 Visit Plan: Neurontin 400mg q HS for 1we ek then 800mg q HS Decrease requip to 1mg q HS for 2wks then stop Fwup 2mos 04/05/2011 Appointment: Belia Reid WPtel: [address] [place] [address] FOLLOW UP 04/05/2011 Patient Education: Patient Medication Summary Completed 04/05/2011 Visit Plan: Trial of neurontin in 2wks C ontinue current meds for stomach Pt has procedure with Dr. Ortiz next week for stone removal 03/08/2011 Appointment: Belia Reid WPtel: [address] [place] [address] Hospital Follow Up 03/08/2011 Patient Education: Patient Medication Summary Completed 03/08/2011 Appointment: Belia Reid WPtel: [address] [place] [address] FOLLOW UP 02/19/2011 Visit Plan: reports increased [...] with Flagyl 01/24/2011 Appointment: Iraida Jones WPtel: [address] [place] [address] ACUTE ILLNESS 01/24/2011 Patient Education: Patient Medication Summary Completed 01/24/2011 Appointment: Belia Reid WPtel: [address] [place] [address] [place] FOLLOW UP 01/02/2011 Patient Education: Patient Medication Summary Completed 01/02/2011 Appointment: Belia Reid WPtel: [address] [place] [address] FOLLOW UP 12/12/2010 Appointment: Belia Reid WPtel: [address] [place] [address] ACUTE ILLNESS 12/07/2010 Patient Education: Patient Medication Summary Completed 12/07/2010 Visit Plan: Increase Buspar to 10mg po B ID 11/16/2010 Appointment: Belia Reid WPtel: [address] [place] [address] FOLLOW UP 11/16/2010 Patient Education: Patient Medication Summary Completed 11/16/2010 Appointment: Iraida Jones WPtel: [address] [place] [address] ER Follow UP 11/02/2010 Patient Education: Patient Medication Summary Completed 11/02/2010 Visit Plan: Depo-Medrol/Kenalog given fo r allergies Add BuSpar for anxiety Oxycodone one p.o. q.i.d. for number 120 refilled 10/18/2010 Appointment: Belia Reid WPtel: [address] [place] [address] [place] FOLLOW UP 10/18/2010 Patient Education: Patient Medication Summary Completed 10/18/2010 Visit Plan: Continue current meds Discus sed epidurals for back vs PT--will proceed with epidurals to thoracolumbar region to see if helps with pain 09/19/2010 Appointment: Belia Reid WPtel: [address] [place], [place] [phone] FOLLOW UP 09/19/2010 Patient Education: Patient Medication Summary Completed 09/19/2010 Visit Plan: DC MS contin Check CT scan t horacic spine Fwup pending above results 09/06/2010 Appointment: Belia Reid WPtel: [address] [place], [place] [phone] FOLLOW UP 09/06/2010 Patient Education: Patient Medication Summary Completed 09/06/2010 Visit Plan: Continue current meds Restar t MS contin 15mg po BID and use oxycodone prn Use daily senokot-s 2 po BID 08/10/2010 Appointment: Belia Reid WPtel: [address] [place], [place] [phone] FOLLOW UP 08/10/2010 Patient Education: Patient Medication Summary Completed 08/10/2010 Visit Plan: Depomedrol/Kenalog given Pt sees ENT later this month Cont current meds Mammo scheduled 05/11/2010 Appointment: Belia Reid WPtel: [address] [place], [place] [phone] FOLLOW UP 05/11/2010 Patient Education: Patient Medication Summary Completed 05/11/2010 Appointment: Belia Reid WPtel: [address] [place] [phone] UA 05/04/2010 Patient Education: Patient Medication Summary Completed 05/04/2010 Visit Plan: Pt sent to lab for UA 04/28/2010 Appointment: Belia Reid WPtel: [address] [place], [place] [phone] UA 04/28/2010 Patient Education: Patient Medication Summary Completed 04/28/2010 Visit Plan: Check CT angiogram of chest Restart Advair Use proair prn Cont current meds Fwup with Card as schedulec 04/06/2010 Appointment: Belia Reidtel: [address] [place] [address] Follow Up 04/06/2010 Patient Education: Patient Medication Summary Completed 04/06/2010 Visit Plan: Paperwork filled out for pow erchair Depomedrol/kenalog given Pt sees ENT in 2wks to assess nasal obstruction problems 02/09/2010 Appointment: Belia Reid WPtel: [address] [place] [address] ESTABLISHED PATIENT 02/09/2010 Patient Education: Patient Medication Summary Completed 02/09/2010 Visit Plan: Change Elavil to Trazadone 1 50mg q HS Diflucan and nystatin for tinea cruris 01/05/2010 Appointment: Belia Reidtel: [address] [place] [address] FOLLOW UP 01/05/2010 Patient Education: Patient Medication Summary Completed 01/05/2010 Appointment: Belia Reidtel: [address] [place] [address] FOLLOW UP 12/07/2009 Patient Education: Patient Medication Summary Completed 12/07/2009 Appointment: Belia Reidtel: [address] [place] [address] FOLLOW UP 11/22/2009 Visit Plan: Cont current meds and await MRI results from Dr. Meadows's office and his final recommendations Will need to follow-up at later date on deviated septum 11/08/2009 Appointment: Belia Reidtel: [address] [place] [address] FOLLOW UP 11/08/2009 Patient Education: Patient Medication Summary Completed 11/08/2009 Visit Plan: Cont PT/OT See Neurosurgery Cont Tortoise shell brace 10/24/2009 Appointment: Belia Reidtel: [address] [place], [place] [phone] FOLLOW UP 10/24/2009 Patient Education: Patient Medication Summary Completed 10/24/2009 Appointment: Belia Reid WPtel: [address] [place], [place] [phone] Follow Up 10/17/2009 Appointment: Belia Reid WPtel: [address] [place], [place] [phone] ACUTE ILLNESS 07/25/2009 Patient Education: Patient Medication Summary Completed 07/25/2009 Appointment: Belia Reid WPtel: [address] [place] [address] FOLLOW UP 05/26/2009 Patient Education: Patient Medication Summary Completed 05/26/2009 Referral: Chino Balderas WPtel: [address] [place], [place] [id number] Referral Initiated Referral: Merry Vale WPtel: [facility] [id number] [place] Dr Vale will review referral and book appointment Completed Referral: Francisco Javier Yoder WPtel: [address] [id number] Patient needs EGD insurance will not inc rease a medication unless this procedure results show a need Completed Referral: Francisco Javier Yoder WPtel: [address] [id number] [place] Referral Historical Reference Referral: Francisco Javier Yoder WPtel: [address] [place] [address] [place] Referral Initiated Instructions Comment . 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 Long discussion [...] from "generic Zyrtec they are getting from [employer]" and try Singulair for 2 weeks. . [...]
--- OUTSIDE RECORDS SUMMARY | 2019-08-27 08:05 | XMS REPORT | CCD ---
Author Author Diana Reid D.O. Organization [facility] Address [address] [place] [address] Phone Care Team Providers Care Disposal Worker Name Role Phone Belia Reid D.O., PP Unavailable CCM Unavailable Summary Purpose Interface Exchange Insurance Providers Payer name Policy type / Coverage type Covered alliance party ID Effective Begin Date Effective End Date [employer] MEDICARE Medicare Part B [id number] 2019 Unknown Family History Family History data not found Social History Social History Element Codes Description Effective Dates Tobacco history SNOMED CT: 566418099 Nonsmoker 09/13/2010 Allergies, Adverse Reactions, Alerts Substance Reaction Codes Entered Date Inactivated Date Status Eggs reaction 13366402 09/15/2015 No Inactive Date Active _ Unknown [...] Fill Instructions Ativan 0.5 mg tablet RxNorm: 999058 1 Tablet(s) Oral th ree times a day for anxiety/shortness of air/stridor 07/29/2019 08/27/2019 Active Singulair 10 mg tablet RxNorm: 130766 1 Tablet(s) Oral QPM 07/29/19 20 01/25/2020 Active diltiazem CD 240 mg capsule,extended release 24 hr RxNorm: 8 73466 1 Capsule(s) Oral QD 07/15/2019 01/10/2020 Active metoprolol tartrate 50 mg tablet RxNorm: 245551 1 Table t(s) Oral two times a day 07/06/2019 No Stop Date Active Novolin N NPH U-100 Insulin isophane 100 unit/mL subcu taneous susp RxNorm: 975426 25 Unit(s) Subcutaneous two times a day 07/06/2019 07/06/2019 I nactive Colestid 1 gram tablet RxNorm: 6438245 1 Tablet(s) Oral two times a day for diarrhea 07/06/2019 09/04/2019 Active pramipexole 1 mg tablet RxNorm: 662325 1 Tablet(s) Oral QPM FOR RESTLESS LEGS (REPLACES REQUIP) 06/25/2019 06/19/2020 Active hydroxyzine HCl 25 mg tablet RxNorm: 490750 1 Tablet(s) Oral QPM for itching/aniety 06/25/2019 09/23/2019 Active Ativan 0.5 mg tablet RxNorm: 294442 1 Tablet(s) Oral th ree times a day for anxiety/shortness of air/stridor 06/25/2019 07/25/2019 Inactive Levaquin 500 mg tablet RxNorm: 715542 1 Tablet(s) Oral QD 06/16/2019 06/23/2019 Inactive Flagyl 500 mg tablet RxNorm: 663236 1 Tablet(s) Oral three time s a day 06/16/2019 06/23/2019 Inactive Vancocin 125 mg capsule RxNorm: 114846 1 Capsule(s) Oral four t imes a day 06/08/2019 06/18/2019 Inactive omeprazole 40 mg capsule,delayed release RxNorm: 733946 1 Capsule(s) Oral two times a day 05/26/2019 11/21/2019 Active Flagyl 500 mg tablet RxNorm: 776150 1 Tablet(s) Oral three time s a day 05/26/2019 06/05/2019 Inactive diltiazem CD 240 mg capsule,extended release 24 hr RxNorm: 8 54214 1 Capsule(s) Oral QD 05/26/2019 07/14/2019 Inactive Cipro 250 mg tablet RxNorm: 540986 1 Tablet(s) Oral two times a day 05/26/2019 06/02/2019 Inactive hydroxyzine HCl 25 mg tablet RxNorm: 055613 1 Tablet(s) Oral QPM for itching/aniety 05/21/2019 06/24/2019 Inactive metoprolol tartrate 25 mg tablet RxNorm: 312935 1 Table t(s) Oral two times a day 05/21/2019 07/05/2019 Inactive hydroxyzine HCl 25 mg tablet RxNorm: 373392 1 Tablet(s) Oral QPM for itching/aniety 05/13/2019 05/20/2019 Inactive Singulair 10 mg tablet RxNorm: 629143 1 Tablet(s) Oral QPM 05/06/1905/12/2019 Inactive gabapentin 600 mg tablet RxNorm: 869248 1 Tablet(s) Oral QD 020 06/05/2019 Inactive Valium 5 mg tablet RxNorm: 164668 1 Tablet(s) Oral QPM for stri joao/muscle spasm 04/29/2019 06/24/2019 Inactive baclofen 10 mg tablet RxNorm: 632492 1 Tablet(s) Oral QPM for s pasm/neck pain 04/24/2019 05/23/2019 Inactive baclofen 10 mg tablet RxNorm: 503739 1 Tablet(s) Oral QPM for s pasm/neck pain 04/24/2019 04/23/2019 Inactive Novolin N NPH U-100 Insulin isophane 100 unit/mL subcu taneous susp RxNorm: 021921 23 Unit(s) Subcutaneous two times a day 04/20/2019 07/05/2019 I nactive cyclobenzaprine 5 mg tablet RxNorm: 663876 1 Tablet(s) Oral three times a day as needed 04/16/2019 04/23/2019 Inactive hydroxyzine HCl 25 mg tablet RxNorm: 140711 1 Tablet(s) Oral three times a day for itching/aniety 04/08/2019 05/12/2019 Inactive gabapentin 600 mg tablet RxNorm: 021521 1 Tablet(s) Oral two ti mes a day 04/08/2019 05/05/2019 Inactive gabapentin 600 mg tablet RxNorm: 397792 1 Tablet(s) Oral two ti mes a day 04/08/2019 04/07/2019 Inactive Novolin N NPH U-100 Insulin isophane 100 unit/mL subcu taneous susp RxNorm: 899976 10 Unit(s) Subcutaneous two times a day 03/03/2019 04/19/2019 I nactive gabapentin 300 mg capsule RxNorm: 550919 1 Capsule(s) O ral every night at bedtime for neuropathy 02/26/2019 04/07/2019 Inactive gabapentin 300 mg capsule RxNorm: 809460 1 Capsule(s) O ral every night at bedtime for neuropathy 02/20/2019 02/25/2019 Inactive buspirone 5 mg tablet RxNorm: 303741 TAKE 1 TABLET THREE TIMES MILDRED Y 02/12/2019 05/12/2019 Inactive pramipexole 1 mg tablet RxNorm: 185848 1 Tablet(s) Oral QPM FOR RESTLESS LEGS (REPLACES REQUIP) 02/12/2019 06/24/2019 Inactive Lexapro 10 mg tablet RxNorm: 537752 TAKE 1 TABLET EVERY DAY FOR MOO D 01/31/2019 No Stop Date Active Ativan 0.5 mg tablet RxNorm: 631769 TAKE 1 TABLET BY MO UT THREE TIMES DAILY NEEDED FOR ANXIETY 01/26/2019 04/28/2019 Inactive Ativan 0.5 mg tablet RxNorm: 819624 TAKE 1 TABLET BY MO UT THREE TIMES DAILY NEEDED FOR ANXIETY 01/05/2019 01/05/2019 Inactive Levaquin 500 mg tablet RxNorm: 230579 1 Tablet(s) Oral QD 12/25/2018 12/24/2018 Inactive Levaquin 500 mg tablet RxNorm: 646827 1 Tablet(s) Oral QD 12/25/2018 01/04/2019 Inactive baclofen 10 mg tablet RxNorm: 575124 1 Tablet(s) Oral three maico es a day 11/20/2018 01/19/2019 Inactive Ativan 0.5 mg tablet RxNorm: 187518 TAKE 1 TABLET BY MO UT THREE TIMES DAILY NEEDED FOR ANXIETY 11/20/2018 01/04/2019 Inactive gabapentin 300 mg capsule RxNorm: 901318 1 Capsule(s) O ral every night at bedtime for neuropathy 11/20/2018 12/20/2018 Inactive Lexapro 10 mg tablet RxNorm: 232565 1 Tablet(s) PO QD for mood 07/201801/30/2019 Inactive Zithromax Z-Lj 250 mg tablet RxNorm: 534411 Tablet(s) PO take as directed 11/04/2018 11/19/2018 Inactive Insulin Syringe 1 mL 29 gauge x 1/2" RxNorm: 2 s yringes daily with insulin Dx: E11.65 10/08/2018 No Stop Date Active gabapentin 300 mg capsule RxNorm: 633749 1 Capsule(s) PO QHS fo r neuropathy 09/18/2018 10/17/2018 Inactive cyclobenzaprine 5 mg tablet RxNorm: 513599 1 Tablet(s) PO TID a s needed 09/09/2018 09/08/2018 Inactive cyclobenzaprine 5 mg tablet RxNorm: 842768 1 Tablet(s) PO TID a s needed 09/09/2018 10/08/2018 Inactive prednisone 20 mg tablet RxNorm: 135123 1 Tablet(s) PO QD 09/08/2018 0 09/12/2018 Inactive Lantus Solostar U-100 Insulin 100 unit/mL (3 mL) subcu taneous pen RxNorm: 088559 55 Unit(s) SQ QAM 08/28/2018 11/03/2018 Inactive hydroxyzine HCl 25 mg tablet RxNorm: 407661 1 Tablet(s) PO QHS for itching 08/20/2018 05/12/2019 Inactive Lexapro 10 mg tablet RxNorm: 379493 1 Tablet(s) PO QD for mood 08/0210/18/2018 Inactive sumatriptan 100 mg tablet RxNorm: 146345 1 Tablet(s) PO at headache onset. May repeat 1 in two hours if headache remains. Max of 2 per 24 hours 04/02/2018 05/20/2018 Inactive Diflucan 150 mg tablet RxNorm: 117458 1 Tablet(s) PO QD 03/18/2018 Inactive Diflucan 150 mg tablet RxNorm: 606328 1 Tablet(s) PO QD 03/18/2018 Inactive Flagyl 500 mg tablet RxNorm: 188699 1 Tablet(s) PO TID 03/17/2018 Inactive Levaquin 500 mg tablet RxNorm: 348924 1 Tablet(s) PO QD 03/17/2018 Inactive Levaquin 500 mg tablet RxNorm: 539473 1 Tablet(s) PO QD 03/17/2018 Inactive Flagyl 500 mg tablet RxNorm: 952417 1 Tablet(s) PO TID 03/17/2018 Inactive ketoconazole 200 mg tablet RxNorm: 500859 1 Tablet(s) PO QD 019 03/19/2018 Inactive Celebrex 200 mg capsule RxNorm: 878770 1 Capsule(s) PO BID 02/06/20 18 05/20/2018 Inactive tramadol 50 mg tablet RxNorm: 158159 1 Tablet(s) PO TID as needed 1 04/08/2017 05/20/2018 Inactive gabapentin 300 mg capsule RxNorm: 535157 1 Capsule(s) PO BID 201705/20/2018 Inactive Diflucan 150 mg tablet RxNorm: 162787 1 Tablet(s) PO QD 01/20/2018 Inactive pramipexole 1 mg tablet RxNorm: 925059 1 Tablet(s) PO Q PM FOR RESTLESS LEGS (REPLACES REQUIP) 01/08/2018 02/11/2019 Inactive cyclobenzaprine 10 mg tablet RxNorm: 060611 1 Tablet(s) PO TID as needed for muscle spasm 12/17/2017 05/20/2018 Inactive pramipexole 1 mg tablet RxNorm: 043425 TAKE 1 TABLET BY MOUTH ONCE DAILY IN THE EVENING FOR RESTLESS LEGS (REPLACES REQUIP) 12/04/2017 01/05/2018 Inac tive Amaryl 4 mg tablet RxNorm: 226735 1 Tablet(s) PO BID replaces 2mg 0 11/05/2017 12/16/2017 Inactive Singulair 10 mg tablet RxNorm: 170978 1 Tablet(s) PO QHS for al lergies/lungs 10/30/2017 12/16/2017 Inactive Diflucan 100 mg tablet RxNorm: 992749 1 Tablet(s) PO QD 10/23/2017 Inactive Ativan 0.5 mg tablet RxNorm: 807752 TAKE 1 TABLET BY MOUTH THRE E TIMES DAILY 08/30/2017 11/20/2018 Inactive buspirone 5 mg tablet RxNorm: 908240 1 Tablet(s) PO TID 07/11/2017 Inactive propranolol 60 mg tablet RxNorm: 209816 1 Tablet(s) PO BID repl aces 40mg dose 06/26/2017 12/16/2017 Inactive Amaryl 4 mg tablet RxNorm: 723201 1 Tablet(s) PO BID replaces 2mg 0 06/12/2017 11/05/2017 Inactive omeprazole 40 mg capsule,delayed release RxNorm: 555819 1 Capsule(s) PO BID TAKE ONE CAPSULE BY MOUTH TWICE DAILY 05/30/2017 11/25/2017 Inactive pramipexole 1 mg tablet RxNorm: 089849 1 Tablet(s) PO Q PM for restless legs--replaces requip 05/30/2017 11/25/2017 Inactive amitriptyline 50 mg tablet RxNorm: 719360 1 Tablet(s) PO QHS 201709/16/2017 Inactive Diflucan 100 mg tablet RxNorm: 682817 1 Tablet(s) PO BID 05/07/2017 0 05/20/2017 Inactive nystatin (bulk) 100 million unit powder RxNorm: Application TO P BID 05/07/2017 05/20/2018 Inactive cholestyramine (with sugar) 4 gram oral powder RxNorm: 169462 1 Unit Dose PO QD 05/07/2017 01/20/2018 Inactive Ativan 0.5 mg tablet RxNorm: 638877 TAKE ONE TABLET BY MOUTH TH REE TIMES DAILY 05/01/2017 09/02/2017 Inactive Trulicity 1.5 mg/0.5 mL subcutaneous pen injector RxNorm: 15 57838 1 Unit Dose SQ WEEKLY 02/22/2017 03/23/2017 Inactive doxycycline hyclate 100 mg capsule RxNorm: 3012833 1 Capsule(s) PO BID 01/23/2017 02/05/2017 Inactive Amaryl 4 mg tablet RxNorm: 123883 1 Tablet(s) PO BID replaces 2mg 1 03/25/2016 05/22/2017 Inactive magnesium oxide 400 mg capsule RxNorm: 544511 1 Capsule(s) PO QD 07/18/2017 Inactive Ativan 0.5 mg tablet RxNorm: 144599 TAKE ONE TABLET BY MOUTH TH REE TIMES DAILY 01/17/2017 05/01/2017 Inactive Amaryl 2 mg tablet RxNorm: 773825 1 Tablet(s) PO BID 12/27/201601/22 Inactive Amaryl 2 mg tablet RxNorm: 216708 1 Tablet(s) PO BID 12/26/201612/26 Inactive Ativan 0.5 mg tablet RxNorm: 971668 TAKE ONE TABLET BY MOUTH TH REE TIMES DAILY 12/05/2016 01/18/2017 Inactive pramipexole 1 mg tablet RxNorm: 656627 1 Tablet(s) PO Q PM for restless legs--replaces requip 11/26/2016 05/30/2017 Inactive Mobic 15 mg tablet RxNorm: 832657 1 Tablet(s) PO QD 10/08/20162016 Inactive cyclobenzaprine 5 mg tablet RxNorm: 235956 1/2- 1 Tablet(s) PO TID 10/08/2016 10/17/2016 Inactive Ativan 0.5 mg tablet RxNorm: 713317 1 Tablet(s) PO TID 09/20/201607/2016 Inactive amitriptyline 50 mg tablet RxNorm: 568656 1 Tablet(s) PO QHS 201605/30/2017 Inactive propranolol 60 mg tablet RxNorm: 170318 1 Tablet(s) PO BID repl aces 40mg dose 09/19/2016 06/26/2017 Inactive Ativan 0.5 mg tablet RxNorm: 048671 1 Tablet(s) PO TID 08/20/2016 Inactive omeprazole 40 mg capsule,delayed release RxNorm: 435456 1 Capsule(s) PO BID TAKE ONE CAPSULE BY MOUTH TWICE DAILY 08/20/2016 05/30/2017 Inactive amitriptyline 50 mg tablet RxNorm: 227065 1 Tablet(s) PO QHS 201609/18/2016 Inactive pramipexole 1 mg tablet RxNorm: 648011 1 Tablet(s) PO Q PM for restless legs--replaces requip 07/23/2016 11/25/2016 Inactive Amaryl 2 mg tablet RxNorm: 974737 1 Tablet(s) PO BID 07/23/201612/27 Inactive propranolol 40 mg tablet RxNorm: 076178 1 Tablet(s) PO BID 07/13/19 17 09/18/2016 Inactive Ativan 0.5 mg tablet RxNorm: 332476 1 Tablet(s) PO QID 06/19/2016 Inactive Amaryl 2 mg tablet RxNorm: 720147 1 Tablet(s) PO BID 06/19/201607/22 Inactive Ativan 0.5 mg tablet RxNorm: 128028 1 Tablet(s) PO QID 06/19/2016 Inactive buspirone 5 mg tablet RxNorm: 014419 1 Tablet(s) PO TID 06/19/2016 Inactive Ativan 0.5 mg tablet RxNorm: 209706 1 Tablet(s) PO BID 05/24/2016 Inactive buspirone 5 mg tablet RxNorm: 159400 1 Tablet(s) PO TID 05/23/2016 Inactive Macrobid 100 mg capsule RxNorm: 676045 1 Capsule(s) PO QOD 05/03/19 17 10/07/2016 Inactive pramipexole 1 mg tablet RxNorm: 023441 Tablet(s) 1 Tabl et(s) PO QPM for restless legs--replaces requip 04/26/2016 06/24/2016 Inactive propranolol 40 mg tablet RxNorm: 448049 TAKE ONE TABLET BY MOUT H TWICE DAILY 04/26/2016 06/24/2016 Inactive Detrol LA 4 mg capsule,extended release RxNorm: 985804 1 Capsul e(s) PO QHS 04/03/2016 05/02/2016 Inactive prednisone 20 mg tablet RxNorm: 918387 1 Tablet(s) PO QD 02/29/2016 0 03/04/2016 Inactive Actos 30 mg tablet RxNorm: 404482 TAKE ONE TABLET BY MOUTH ONCE DAILY 02/27/2016 12/19/2016 Inactive clindamycin 300 mg capsule RxNorm: 185454 1 Capsule(s) PO TID 02/0102/08/2016 Inactive Flagyl 500 mg tablet RxNorm: 167919 1 Tablet(s) PO BID 02/02/201609/2015 Inactive omeprazole 40 mg capsule,delayed release RxNorm: 728708 TAKE ONE CAPSULE BY MOUTH TWICE DAILY 01/15/2016 07/12/2016 Inactive gabapentin 300 mg capsule RxNorm: 674854 1 Capsule(s) PO QAM an d 2 po q HS 01/05/2016 06/18/2016 Inactive gabapentin 300 mg capsule RxNorm: 235109 1 Capsule(s) P O BID 1 Capsule(s) PO QHS 12/05/2015 01/04/2016 Inactive cyclobenzaprine 10 mg tablet RxNorm: 711768 1 Tablet(s) PO TID for spasm as needed for muscle spasm 12/05/2015 06/18/2016 Inactive ciprofloxacin 250 mg tablet RxNorm: 696228 1 Tablet(s) PO BID 12/0412/14/2015 Inactive pramipexole 1 mg tablet RxNorm: 156522 Tablet(s) 1 Tabl et(s) PO QPM for restless legs--replaces requip 11/07/2015 11/26/2016 Inactive Januvia 100 mg tablet RxNorm: 068175 1 Tablet(s) PO QD 10/26/201504/2015 Inactive propranolol 40 mg tablet RxNorm: 959364 TAKE ONE TABLET BY MOUT H TWICE DAILY 10/25/2015 04/21/2016 Inactive gabapentin 300 mg capsule RxNorm: 972078 1 Capsule(s) PO QHS 201512/04/2015 Inactive Cipro 500 mg tablet RxNorm: 859281 1 Tablet(s) PO BID 10/05/2015 0811/2015 Inactive pramipexole 1 mg tablet RxNorm: 336821 Tablet(s) 1 Tabl et(s) PO QPM for restless legs--replaces requip 10/04/2015 11/02/2015 Inactive propranolol 40 mg tablet RxNorm: 319308 TAKE ONE TABLET BY MOUT H TWICE DAILY 09/26/2015 10/24/2015 Inactive Amaryl 2 mg tablet RxNorm: 165585 1 Tablet(s) PO QD 09/15/20152016 Inactive gabapentin 300 mg capsule RxNorm: 217696 1 Capsule(s) PO QHS 201510/14/2015 Inactive buspirone 5 mg tablet RxNorm: 643054 1 Tablet(s) PO TID 09/15/2015 Inactive pramipexole 1 mg tablet RxNorm: 925604 Tablet(s) 1 Tabl et(s) PO QPM for restless legs--replaces requip 09/08/2015 10/03/2015 Inactive pramipexole 1 mg tablet RxNorm: 953329 1 Tablet(s) PO Q PM for restless legs--replaces requip 08/08/2015 09/08/2015 Inactive Amaryl 2 mg tablet RxNorm: 026079 1 Tablet(s) PO QD 07/07/20152015 Inactive pramipexole 1 mg tablet RxNorm: 264578 1 Tablet(s) PO Q PM for restless legs--replaces requip 07/05/2015 08/03/2015 Inactive ropinirole 2 mg tablet RxNorm: 995043 TAKE ONE TABLET BY MOUTH TWICE DAILY 05/09/2015 09/14/2015 Inactive Diflucan 100 mg tablet RxNorm: 832769 1 Tablet(s) PO QD 03/30/2015 Inactive propranolol 40 mg tablet RxNorm: 329925 1 Tablet(s) PO BID 02/24/20 15 08/21/2015 Inactive [SAVINGS FOR UNINSURED PATIE NTS -- BIN:159158, PCN: ASPROD1, Group: AME08, ID# [id number], Process claim through [employer], for questions: . THIS IS NOT INSURANCE.] Flagyl 500 mg tablet RxNorm: 481420 1 Tablet(s) PO BID 02/03/201502/2015 Inactive Cipro 500 mg tablet RxNorm: 177339 1 Tablet(s) PO BID 02/03/201502/01 Inactive Carafate 1 gram tablet RxNorm: 667176 1 Tablet(s) PO QID make i nto slurry 02/03/2015 09/14/2015 Inactive ondansetron HCl 4 mg tablet RxNorm: 716359 1 Tablet(s) PO Q4H as needed for nausea 12/29/2014 01/04/2016 Inactive Diflucan 100 mg tablet RxNorm: 240934 1 Tablet(s) PO QD 12/29/2014 Inactive Keflex 500 mg capsule RxNorm: 217869 1 Capsule(s) PO TID 12/29/2014 1 03/09/2014 Inactive omeprazole 40 mg capsule,delayed release RxNorm: 611472 1 Capsu le(s) PO BID 12/27/2014 12/21/2015 Inactive [SAVINGS FOR UNINSUR ED PATIENTS -- BIN:934105, PCN: ASPROD1, Group: AME08, ID# [id number], Process claim through [employer], for questions: . THIS IS NOT INSURANCE.] ropinirole 2 mg tablet RxNorm: 083981 1 Tablet(s) PO BID 09/29/2014 0 03/27/2015 Inactive [SAVINGS FOR UNINSURED PATIENTS -- BIN:0 60192, PCN: ASPROD1, Group: AME08, ID# [id number], Process claim through [employer], for questions: . THIS IS NOT INSURANCE.] buspirone 5 mg tablet RxNorm: 044890 1 Tablet(s) PO TID 09/17/2014 Inactive ropinirole 2 mg tablet RxNorm: 230220 1 Tablet(s) PO BID 09/02/2014 0 09/28/2014 Inactive [SAVINGS FOR UNINSURED PATIENTS -- BIN:0 73012, PCN: ASPROD1, Group: AME08, ID# [id number], Process claim through [employer], for questions: . THIS IS NOT INSURANCE.] Zyrtec 10 mg tablet RxNorm: 1755426 1 Tablet(s) PO QD 09/02/201412/02 Inactive propranolol 40 mg tablet RxNorm: 723025 1 Tablet(s) PO BID 07/21/19 15 02/23/2015 Inactive [SAVINGS FOR UNINSURED PATIE NTS -- BIN:457186, PCN: ASPROD1, Group: AME08, ID# [id number], Process claim through [employer], for questions: . THIS IS NOT INSURANCE.] ropinirole 2 mg tablet RxNorm: 657904 1 Tablet(s) PO QHS 05/14/2014 0 09/01/2014 Inactive [SAVINGS FOR UNINSURED PATIENTS -- BIN:0 89010, PCN: ASPROD1, Group: AME08, ID# [id number], Process claim through [employer], for questions: . THIS IS NOT INSURANCE.] cyclobenzaprine 10 mg tablet RxNorm: 771836 1 Tablet(s) PO QHS for spasm 04/06/2014 09/01/2014 Inactive ipratropium-albuterol 0.5 mg-3 mg(2.5 mg base)/3 mL ne bulization soln RxNorm: 1817274 1 Unit Dose INH Q4H 03/16/2014 No Stop Date Active [SAVINGS FOR UNINSURED PATIENTS -- BIN:767726, PCN: ASPROD1, Group: AME08, ID# [id number], Process claim through [employer], for questions: . THIS IS NOT INSURANCE.] prednisone 20 mg tablet RxNorm: 432947 1 Tablet(s) PO BID 03/09/2014 03/15/2014 Inactive [SAVINGS FOR UNINSURED PATIENTS -- BIN:0 09306, PCN: ASPROD1, Group: AME08, ID# [id number], Process claim through [employer], for questions: . THIS IS NOT INSURANCE.] ipratropium-albuterol 0.5 mg-3 mg(2.5 mg base)/3 mL ne bulization soln RxNorm: 3011481 1 Unit Dose INH Q4H 03/09/2014 03/15/2014 Inactive [SAVINGS FOR UNINSURED PATIENTS -- BIN:077783, PCN: ASPROD1, Group: AME08, ID# [id number], Process claim through [employer], for questions: . THIS IS NOT INSURANCE.] Levaquin 500 mg tablet RxNorm: 281801 1 Tablet(s) PO QD 03/09/2014 Inactive [SAVINGS FOR UNINSURED PATIENTS -- BIN:0 06061, PCN: ASPROD1, Group: AME08, ID# [id number], Process claim through [employer], for questions: . THIS IS NOT INSURANCE.] Carafate 1 gram tablet RxNorm: 299918 1 Tablet(s) PO AC & HS ma ke into slurry 02/09/2014 09/01/2014 Inactive [SAVINGS FOR UNINSUR ED PATIENTS -- BIN:485511, PCN: ASPROD1, Group: AME08, ID# [id number], Process claim through [employer], for questions: . THIS IS NOT INSURANCE.] Fioricet 50 mg-300 mg-40 mg capsule RxNorm: 0022033 1-2 Capsule(s) PO Q4H as needed for headache --max of 6 a day 02/09/2014 09/01/2014 Inactive [SAVINGS FOR UNINSURED PATIENTS -- BIN:637382, PCN: ASPROD1, Group: AME08, ID# [id number], Process claim through [employer], for questions: . THIS IS NOT INSURANCE.] propranolol 40 mg tablet RxNorm: 725899 1 Tablet(s) PO BID 12/08/19 14 06/04/2014 Inactive [SAVINGS FOR UNINSURED PATIE NTS -- BIN:302654, PCN: ASPROD1, Group: AME08, ID# [id number], Process claim through [employer], for questions: . THIS IS NOT INSURANCE.] buspirone 5 mg tablet RxNorm: 848250 1 Tablet(s) PO TID 12/02/2013 Inactive omeprazole 40 mg capsule,delayed release RxNorm: 203266 1 Capsu le(s) PO BID 11/25/2013 11/19/2014 Inactive [SAVINGS FOR UNINSUR ED PATIENTS -- BIN:087128, PCN: ASPROD1, Group: AME08, ID# [id number], Process claim through [employer], for questions: . THIS IS NOT INSURANCE.] ropinirole 2 mg tablet RxNorm: 874225 1 Tablet(s) PO QHS 11/10/2013 0 05/08/2014 Inactive [SAVINGS FOR UNINSURED PATIENTS -- BIN:0 01806, PCN: ASPROD1, Group: AME08, ID# [id number], Process claim through [employer], for questions: . THIS IS NOT INSURANCE.] Cipro 500 mg tablet RxNorm: 981669 1 Tablet(s) PO BID 10/21/201312/03 Inactive [SAVINGS FOR UNINSURED PATIENTS -- BIN:0 53244, PCN: ASPROD1, Group: AME08, ID# [id number], Process claim through [employer], for questions: . THIS IS NOT INSURANCE.] hydroxyzine HCl 25 mg tablet RxNorm: 786091 1 Tablet(s) PO Q4-6 H as needed 10/05/2013 01/04/2016 Inactive [SAVINGS FOR UNINSUR ED PATIENTS -- BIN:067901, PCN: ASPROD1, Group: AME08, ID# [id number], Process claim through [employer], for questions: . THIS IS NOT INSURANCE.] triamcinolone acetonide 0.1 % topical cream RxNorm: 9171977 Appl ication TOP BID 10/05/2013 09/01/2014 Inactive [SAVINGS FOR UNINSUR ED PATIENTS -- BIN:216754, PCN: ASPROD1, Group: AME08, ID# [id number], Process claim through [employer], for questions: . THIS IS NOT INSURANCE.] albuterol sulfate HFA 90 mcg/actuation aerosol inhaler RxNor m: 5912043 2 Puff(s) INH Q4H as needed for cough 10/01/2013 12/22/2013 Inactive [MAKSIM INGS FOR UNINSURED PATIENTS -- BIN:176683, PCN: ASPROD1, Group: AME08, ID# [id number], Process claim through [employer], for questions: . THIS IS NOT INSURANCE.] propranolol 40 mg tablet RxNorm: 707447 1 Tablet(s) PO BID 09/02/19 14 11/29/2013 Inactive [SAVINGS FOR UNINSURED PATIE NTS -- BIN:131643, PCN: ASPROD1, Group: AME08, ID# [id number], Process claim through [employer], for questions: . THIS IS NOT INSURANCE.] propranolol 40 mg tablet RxNorm: 933753 1 Tablet(s) PO BID 08/05/19 14 08/31/2013 Inactive [SAVINGS FOR UNINSURED PATIE NTS -- BIN:637257, PCN: ASPROD1, Group: AME08, ID# [id number], Process claim through [employer], for questions: . THIS IS NOT INSURANCE.] Toprol XL 50 mg tablet,extended release RxNorm: 980813 1 Tablet (s) PO QHS 07/23/2013 08/03/2013 Inactive Macrobid 100 mg capsule RxNorm: 295592 1 Capsule(s) PO BID 07/04/19 14 07/09/2013 Inactive Toprol XL 50 mg tablet,extended release RxNorm: 353481 1 Tablet (s) PO QHS 05/28/2013 06/26/2013 Inactive ciprofloxacin 500 mg tablet RxNorm: 663829 1 Tablet(s) PO BID 05/2706/02/2013 Inactive Bystolic 5 mg tablet RxNorm: 042835 1 Tablet(s) PO QD 05/27/201305/03 Inactive ropinirole 2 mg tablet RxNorm: 426650 1 Tablet(s) PO QHS 04/22/2013 0 11/09/2013 Inactive Cipro 250 mg tablet RxNorm: 759966 1 Tablet(s) PO BID 04/06/201311/2013 Inactive ropinirole 2 mg tablet RxNorm: 739915 1 Tablet(s) PO QHS 02/17/2013 0 04/21/2013 Inactive Amaryl 2 mg tablet RxNorm: 113163 1 Tablet(s) PO QAM 11/11/201211/10 Inactive Amaryl 2 mg tablet RxNorm: 057818 1 Tablet(s) PO QAM 11/11/201204/05 Inactive omeprazole 40 mg capsule,delayed release RxNorm: 785603 1 Capsu le(s) PO BID 08/14/2012 08/08/2013 Inactive Bystolic 5 mg tablet RxNorm: 127814 1 Tablet(s) PO QD 08/14/201205/03 Inactive propranolol 60 mg tablet RxNorm: 606960 Tablet(s) PO TAKE 1 TAB LET TWICE DAILY 08/01/2012 09/01/2012 Inactive Bystolic 5 mg tablet RxNorm: 873378 1 Tablet(s) PO QD 07/21/201207/02 Inactive Bystolic 5 mg tablet RxNorm: 988872 1 Tablet(s) PO QD 07/21/201207/03 Inactive Prilosec 40 mg capsule,delayed release RxNorm: 660184 1 Capsule (s) PO BID 06/24/2012 07/21/2012 Inactive buspirone 10 mg tablet RxNorm: 160754 1 Tablet(s) PO TID 05/08/2012 0 05/23/2016 Inactive Valium 10 mg tablet RxNorm: 946652 1 Tablet(s) PO BID 04/02/201207/03 Inactive Endocet 10 mg-325 mg tablet RxNorm: 8204874 1 Tablet(s) PO QID 03/0607/21/2012 Inactive as needed for severe pain Valium 10 mg tablet RxNorm: 915215 1 Tablet(s) PO BID 02/27/2012 No S top Date Active Endocet 10 mg-325 mg tablet RxNorm: 7443019 1 Tablet(s) PO QID 02/0203/27/2012 Inactive as needed for severe pain Endocet 10 mg-325 mg tablet RxNorm: 9416215 1 Tablet(s) PO QID 01/0302/26/2012 Inactive as needed for severe pain Valium 10 mg tablet RxNorm: 117831 1 Tablet(s) PO BID 01/29/2012 No S top Date Active Protonix 40 mg tablet,delayed release RxNorm: 521730 1 Tablet(s ) PO QD 01/28/2012 07/21/2012 Inactive metformin ER 500 mg tablet,extended release 24 hr RxNorm: 86 0977 1 Tablet(s) PO QD 12/26/2011 07/20/2012 Inactive Trazadone 150 mg Tablet RxNorm: 1 Tablet(s) PO QHS prn sleep 1 04/23/2012 Inactive Endocet 10 mg-325 mg tablet RxNorm: 5336504 1 Tablet(s) PO QID 12/0301/24/2012 Inactive as needed for severe pain Nexium 40 mg capsule,delayed release RxNorm: 363294 1 Capsule(s ) PO QD 12/26/2011 01/27/2012 Inactive Symbicort 160 mcg-4.5 mcg/actuation HFA Aerosol Inhaler RxNo rm: 9714765 2 Puff(s) INH BID 12/04/2011 07/21/2012 Inactive Endocet 10 mg-325 mg tablet RxNorm: 2598667 1 Tablet(s) PO QID 11/0312/25/2011 Inactive as needed for severe pain metformin ER 500 mg tablet,extended release 24 hr RxNorm: 86 0977 1 Tablet(s) PO QD 11/20/2011 12/19/2011 Inactive metformin ER 500 mg tablet,extended release 24 hr RxNorm: 86 0977 1 Tablet(s) PO QD 11/20/2011 11/19/2011 Inactive amitriptyline 100 mg tablet RxNorm: 089670 Tablet(s) PO QHS 1 a nd /2 tabs QHS 11/12/2011 11/13/2011 Inactive Valium 10 mg tablet RxNorm: 925034 1 Tablet(s) PO BID 11/09/2011 No S top Date Active Endocet 10 mg-325 mg tablet RxNorm: 2936895 1 Tablet(s) PO QID 10/0211/14/2011 Inactive as needed for severe pain Aricept 10 mg Tab RxNorm: 675281 1 Tablet(s) PO QD 10/05/2011 013 Inactive Valium 10 mg tablet RxNorm: 230270 1 Tablet(s) PO BID 10/05/2011 No S top Date Active Endocet 10 mg-325 mg Tab RxNorm: 3754366 1 Tablet(s) PO QID 012 10/09/2011 Inactive as needed for severe pain Aricept 10 mg Tab RxNorm: 419646 1 Tablet(s) PO QD 08/14/2011 012 Inactive Endocet 10 mg-325 mg Tab RxNorm: 6108749 1 Tablet(s) PO QID 012 08/31/2011 Inactive as needed for severe pain Valium 10 mg Tab RxNorm: 030329 1 Tablet(s) PO BID 08/02/2011 No Stop Date Active propranolol 60 mg tablet RxNorm: 333541 1 Tablet(s) PO BID 07/26/19 12 09/11/2011 Inactive amitriptyline 100 mg tablet RxNorm: 256043 Tablet(s) PO QHS 1 a nd 1/2 tabs QHS 06/20/2011 09/11/2011 Inactive buspirone 10 mg tablet RxNorm: 123728 1 Tablet(s) PO BID 06/18/2011 0 09/15/2011 Inactive propranolol 60 mg Tab RxNorm: 856892 1 Tablet(s) PO BID 06/18/2011 Inactive gabapentin 800 mg Tab RxNorm: 296146 1 Tablet(s) PO BID 06/18/2011 Inactive ropinirole 2 mg tablet RxNorm: 917334 1 Tablet(s) PO QHS 05/29/2011 0 08/26/2011 Inactive trimethoprim 100 mg Tab RxNorm: 465628 1 Tablet(s) PO QHS 05/29/2011 07/21/2012 Inactive Endocet 10 mg-325 mg Tab RxNorm: 4710935 1 Tablet(s) PO QID 012 2011 Inactive as needed for severe pain Valium 10 mg Tab RxNorm: 197306 1 Tablet(s) PO QHS N eed to take med as prescribed. this is a 40 day RX. No early fills. 05/17/2011 05/20/2018 Inactive propranolol 60 mg Tab RxNorm: 272960 1 Tablet(s) PO BID 04/16/2011 Inactive Neurontin 800 mg Tab RxNorm: 658403 1 Tablet(s) PO QHS 04/05/201103/2011 Inactive Endocet 10 mg-325 mg Tab RxNorm: 7309121 1 Tablet(s) PO QID 012 05/02/2011 Inactive as needed for severe pain oxycodone-acetaminophen 10 mg-325 mg tablet RxNorm: 6303847 1 Ta blet(s) PO Q4H 03/28/2011 05/19/2012 Inactive Valium 10 mg Tab RxNorm: 532373 1 Tablet(s) PO QHS 03/28/2011 012 Inactive buspirone 10 mg Tab RxNorm: 147120 1 Tablet(s) PO BID 03/27/201106/02 Inactive propranolol 60 mg Tab RxNorm: 232748 1 Tablet(s) PO BID 03/19/2011 Inactive Klor-Con M20 20 mEq Tab RxNorm: 4258093 1 Tablet(s) PO QD 03/19/2011 07/21/2012 Inactive Aricept 10 mg Tab RxNorm: 016932 1 Tablet(s) PO QD 02/27/2011 012 Inactive propranolol 60 mg Tab RxNorm: 431235 1 Tablet(s) PO BID 02/19/2011 Inactive omeprazole 40 mg capsule,delayed release RxNorm: 179638 1 Capsu le(s) PO BID 01/24/2011 05/23/2011 Inactive clindamycin 300 mg capsule RxNorm: 055857 1 Capsule(s) PO TID 01/2402/02/2011 Inactive propranolol 60 mg Tab RxNorm: 732185 1 Tablet(s) PO BID 01/22/2011 No Stop Date Active nystatin 100,000 unit/g Topical Cream RxNorm: 762132 Applicatio n TOP BID 01/15/2011 01/14/2011 Inactive to rash for 2-4 week s Diflucan 200 mg Tab RxNorm: 296886 1 Tablet(s) PO QD 01/15/201101/28 Inactive buspirone 10 mg Tab RxNorm: 192762 1 Tablet(s) PO BID 01/08/201103/05 Inactive Valium 10 mg Tab RxNorm: 705034 1 Tablet(s) PO QHS 01/05/2011 012 Inactive Diflucan 200 mg Tab RxNorm: 455073 1 Tablet(s) PO QD 01/01/201101/14 Inactive Diflucan 200 mg Tab RxNorm: 237627 1 Tablet(s) PO QD 12/18/201012/31 Inactive Valium 10 mg Tab RxNorm: 559973 1 Tablet(s) PO QHS 12/12/2010 011 Inactive Diflucan 200 mg Tab RxNorm: 545205 1 Tablet(s) PO QD 12/07/201012/18 Inactive Aricept 10 mg Tab RxNorm: 307784 1 Tablet(s) PO QD 11/20/2010 011 Inactive ropinirole 1 mg Tab RxNorm: 609006 1 Tablet(s) PO QHS 11/16/201005/03 Inactive enalapril maleate 5 mg Tab RxNorm: 955117 1 Tablet(s) PO QD 011 05/20/2018 Inactive buspirone 10 mg Tab RxNorm: 574161 1 Tablet(s) PO BID 11/16/201012/02 Inactive Valium 10 mg Tab RxNorm: 558714 1 Tablet(s) PO QHS 11/07/2010 011 Inactive Pyridium 100 mg Tab RxNorm: 8679305 1 Tablet(s) PO TID 11/02/201004/2010 Inactive Macrobid 100 mg Cap RxNorm: 8835913 1 Capsule(s) PO BID 11/02/2010 Inactive buspirone 10 mg Tab RxNorm: 880531 1 Tablet(s) PO QHS 10/18/201005/02 Inactive propranolol 60 mg Tab RxNorm: 021240 1 Tablet(s) PO BID 09/18/2010 Inactive Valium 10 mg Tab RxNorm: 855807 1 Tablet(s) PO QHS 09/05/2010 011 Inactive Aricept 10 mg Tab RxNorm: 535730 1 Tablet(s) PO QD 08/14/2010 011 Inactive Valium 10 mg Tab RxNorm: 822535 1 Tablet(s) PO QHS 06/26/2010 011 Inactive ropinirole 1 mg Tab RxNorm: 528164 1 Tablet(s) PO QHS 06/19/201010/02 Inactive omeprazole 40 mg Cap, delayed release RxNorm: 025204 1 Capsule( s) PO QD 06/07/2010 10/04/2010 Inactive Endocet 10 mg-325 mg Tab RxNorm: 5381186 1 Tablet(s) PO QID as needed for severe pain 06/07/2010 03/07/2011 Inactive Endocet 10 mg-325 mg Tab RxNorm: 6998809 1 Tablet(s) PO QID as needed for severe pain 05/04/2010 06/02/2010 Inactive Valium 10 mg Tab RxNorm: 174004 1 Tablet(s) PO QHS 05/01/2010 011 Inactive propranolol 60 mg Tab RxNorm: 001285 1 Tablet(s) PO BID 04/03/2010 Inactive Valium 10 mg Tab RxNorm: 679100 1 Tablet(s) PO QHS 03/28/2010 011 Inactive omeprazole 40 mg Cap, Delayed Release RxNorm: 842672 1 Capsule( s) PO QD 03/28/2010 06/06/2010 Inactive Endocet 10 mg-325 mg Tab RxNorm: 1656770 1 Tablet(s) PO QID prn ari n 03/27/2010 05/20/2018 Inactive Valium 10 mg Tab RxNorm: 385319 1 Tablet(s) PO QHS 02/20/2010 011 Inactive Diflucan 100 mg Tab RxNorm: 683436 1 Tablet(s) PO BID 01/23/201003/2009 Inactive Diflucan 100 mg Tab RxNorm: 743764 1 Tablet(s) PO BID 01/05/201001/02 Inactive Aricept 10 mg Tab RxNorm: 505140 1 Tablet(s) PO QD 12/01/2009 011 Inactive OxyContin 20 mg 12 hr Tab RxNorm: 7504541 1 Tablet(s) PO BID 200904/05/2010 Inactive oxycodone-acetaminophen 10 mg-325 mg Tab RxNorm: 1692324 1 Table t(s) PO Q4H 11/22/2009 11/26/2009 Inactive Phenergan 25 mg Tab RxNorm: 200637 1 Tablet(s) PO PRN MIGRAINE 11/0303/07/2011 Inactive Demerol 100 mg Tab RxNorm: 031165 1 Tablet(s) PO PRN MIGRAINE 11/2203/07/2011 Inactive Oxycodone-Acetaminophen 10 mg-325 mg Tab RxNorm: 8205606 1 Table t(s) PO Q4H 10/11/2009 10/15/2009 Inactive Percocet 10 mg-325 mg Tab RxNorm: 8320898 1 Tablet(s) PO Q4H 200910/24/2009 Inactive propranolol 60 mg Tab RxNorm: 945300 1 Tablet(s) PO BID 08/29/2009 Inactive Valium 10 mg Tab RxNorm: 652765 1 Tablet(s) PO QHS 08/16/2009 010 Inactive Keflex 500 mg Cap RxNorm: 160698 1 Capsule(s) PO BID 07/25/200907/31 Inactive Hydroxyzine 25 mg Tab RxNorm: 907257 1 Tablet(s) PO TID 07/25/2009 Inactive Prednisone 20 mg Tab RxNorm: 087535 1 Tablet(s) PO BID 07/25/2009 Inactive Demerol 100 mg Tab RxNorm: 790755 1 Tablet(s) PO PRN MIGRAINE 07/25 No Stop Date Active Ropinirole 1 mg Tab RxNorm: 002241 1 Tablet(s) PO HS 07/20/200902/14 Inactive Valium 10 mg Tab RxNorm: 335484 1 Tablet(s) PO QHS 07/18/2009 010 Inactive Endocet 10 mg-325 mg Tab RxNorm: 3077682 1 Tablet(s) PO TID 010 07/07/2009 Inactive Demerol 100 mg Tab RxNorm: 320348 1 Tablet(s) PO PRN MIGRAINE 06/08 No Stop Date Active Ropinirole 1 mg Tab RxNorm: 593446 1 Tablet(s) PO HS 05/16/200907/14 Inactive ipratropium-albuterol 0.5 mg-3 mg(2.5 mg base)/3 mL ne bulization soln RxNorm: 9366388 1 Unit Dose INH Q4H as needed No Start Date Active MagOx 400 mg (241.3 mg magnesium) tablet RxNorm: 153287 1 Table t(s) PO BID No Start Date Active Vitamin B12 1000mcg Tablet RxNorm: 1 Tablet(s) PO QD No Start Date Active Vitamin D3 5,000 unit tablet RxNorm: 062091 1 Tablet(s) PO QD No Star t Date Active Tylenol Arthritis Pain 650 mg tablet,extended release RxNorm : 5485063 1 Tablet(s) PO Q4H No Start Date Active Lotrimin AF 2 % topical powder RxNorm: 911392 1 Application TOP BID No Start Date Active enalapril maleate 5 mg Tab RxNorm: 837041 1 Tablet(s) PO QD No Star t Date 07/20/2012 Inactive Demerol 100 mg Tab RxNorm: 944652 Tablet(s) PO PRN MIGRAINE No Star t Date 06/02/2009 Inactive metformin 500 mg tablet RxNorm: 299437 1 Tablet(s) PO QD No Start D ate 04/05/2013 Inactive Breo Ellipta 100 mcg-25 mcg/dose powder for inhalation RxNor m: 0412067 1 Puff(s) INH BID No Start Date 01/04/2016 Inactive Mag-Oxide 400 mg Tab RxNorm: 696682 1 Tablet(s) PO QD No Start Date 0 07/21/2012 Inactive Cipro 500 mg Tab RxNorm: 740451 1 Tablet(s) PO QD No Start Date 04/05 Inactive Ativan 0.5 mg tablet RxNorm: 791229 1 Tablet(s) PO TID as needed No Start Date 05/06/2019 Inactive melatonin 3 mg tablet RxNorm: 507428 2 Tablet(s) PO QHS No Start Da te 08/19/2018 Inactive buspirone 10 mg Tab RxNorm: 857243 1 Tablet(s) PO QD No Start Date Inactive sucralfate 100 mg/mL Oral Susp RxNorm: 086988 2 Teaspoon(s) PO QID No Start Date 07/21/2012 Inactive hydrocodone 5 mg-acetaminophen 325 mg tablet RxNorm: 678394 1 Tablet(s) PO Q4H as needed No Start Date 08/19/2018 Inactive Amaryl 2 mg tablet RxNorm: 123672 1 Tablet(s) PO BID No Start Date Inactive OxyContin 20 mg 12 hr Tab RxNorm: 9296406 1 Tablet(s) PO BID No Sta rt Date 11/27/2009 Inactive propranolol 40 mg tablet RxNorm: 952064 1 Tablet(s) PO QID No Start Date 01/19/2018 Inactive Trazadone 150 mg Tablet RxNorm: 1-2 Tablet(s) PO QHS prn sleep No Start Date 08/09/2010 Inactive propranolol 60 mg Tab RxNorm: 497704 1/2 Tablet(s) PO BID No Start Date 01/21/2011 Inactive insulin NPH and regular human subcutaneous RxNorm: 9153786 subcu taneous No Start Date 11/20/2018 Inactive Ativan 0.5 mg tablet RxNorm: 514668 1 Tablet(s) PO QID No Start Date 06/18/2016 Inactive Vasotec 5 mg Tab RxNorm: 145381 1 Tablet(s) PO BID No Start Date 06/2011 Inactive Toprol XL 50 mg tablet,extended release RxNorm: 239544 1 Tablet (s) PO BID No Start Date 04/05/2013 Inactive Ativan 0.5 mg tablet RxNorm: 449248 1 Tablet(s) PO TID No Start Date 05/25/2016 Inactive Klor-Con M20 20 mEq Tab RxNorm: 2242301 1 Tablet(s) PO QD No Start Date 03/19/2011 Inactive sumatriptan 100 mg tablet RxNorm: 954289 1 Tablet(s) PO at headache onset--repeat in 2hrs if remains No Start Date 07/21/2012 Inactive propranolol 60 mg Tab RxNorm: 928799 1 Tablet(s) PO BID No Start Da te 08/28/2009 Inactive Cholestyramine Light 4 gram Oral Powder RxNorm: 5350501 1 Unit Dose PO QD in water No Start Date 07/21/2012 Inactive nystatin 100,000 unit/g Topical Powder RxNorm: 110269 Applicati on TOP BID No Start Date 07/21/2012 Inactive vitamin Z99-upphx acid sublingual RxNorm: sublingual No Start Date 07/05/2013 Inactive cyclobenzaprine 5 mg tablet RxNorm: 682023 1/2-1 Tablet (s) PO TID as needed for muscle spasm No Start Date 07/18/2017 Inactive tramadol 50 mg tablet RxNorm: 433512 2 Tablet(s) PO TID as need ed for pain No Start Date 09/01/2014 Inactive aspirin 81 mg Tab RxNorm: 550369 1 Tablet(s) PO QOD No Start Date 04/2013 Inactive Vitamin B12 1000mcg Tablet RxNorm: 1 Tablet(s) PO QD No Start Date 07/18/2017 Inactive cholestyramine (with sugar) 4 gram oral powder RxNorm: 93830 3 1 Unit(s) PO QD as needed No Start Date 05/20/2018 Inactive ProAir HFA 90 mcg/Actuation Aerosol Inhaler RxNorm: 268851 2 Puff(s) INH Q4H prn shortness of breath No Start Date 07/21/2012 Inactive pravastatin 10 mg Tab RxNorm: 956216 1 Tablet(s) PO QD No Start Date 07/21/2012 Inactive gabapentin 800 mg Tab RxNorm: 948555 1 Tablet(s) PO BID No Start Da te 06/03/2011 Inactive Endocet 10 mg-325 mg Tab RxNorm: 2275004 1 Tablet(s) PO TID No Star t Date 06/02/2009 Inactive Naproxen 500 mg Tab RxNorm: 126466 1 Tablet(s) PO BID No Start Date 0 04/05/2010 Inactive Valium 10 mg Tab RxNorm: 895148 1 Tablet(s) PO BID No Start Date 07/04 Inactive enalapril maleate 5 mg Tab RxNorm: 797225 1 Tablet(s) PO QD No Star t Date 11/15/2010 Inactive doxepin 10 mg capsule RxNorm: 9159960 2 Capsule(s) PO QHS No Start Date 09/17/2018 Inactive MS Contin 15 mg Tab RxNorm: 825372 1 Tablet(s) PO BID No Start Date 0 09/18/2010 Inactive buspirone 5 mg tablet RxNorm: 251967 1 Tablet(s) PO TID No Start Da te 12/01/2013 Inactive [place] 3 Fish Oil Cap RxNorm: 1 Capsule(s) PO QD No Start Date 07/03 Inactive enalapril maleate 5 mg Tab RxNorm: 108411 1/2 Tablet(s) PO QD No St art Date 03/07/2011 Inactive Lyrica 75 mg capsule RxNorm: 986240 1 Capsule(s) PO QHS No Start Da te 02/08/2014 Inactive Lopressor 100 mg tablet RxNorm: 539619 1 Tablet(s) PO BID No Start Date 06/08/2018 Inactive Lantus Solostar U-100 Insulin 100 unit/mL (3 mL) subcu taneous pen RxNorm: 808068 45 Unit(s) SQ QAM No Start Date 05/20/2018 Inactive aspirin 81 mg tablet RxNorm: 649774 1 Tablet(s) PO QD No Start Date 0 09/14/2015 Inactive diltiazem CD 240 mg capsule,extended release 24 hr RxNorm: 8 08952 1 Capsule(s) PO QD No Start Date 05/25/2019 Inactive insulin NPH isophane U-100 human subcutaneous RxNorm: 454754 beckwith bcutaneous No Start Date 04/20/2019 Inactive sumatriptan 100 mg tablet RxNorm: 102171 1 Tablet(s) PO at headache onset. May repeat 1 in two hours if headache remains. Max of 2 per 24 hours No Start Date 04/01/2018 Inactive gabapentin 300 mg capsule RxNorm: 007892 1 Capsule(s) PO QHS No Sta rt Date 02/04/2018 Inactive Topamax 25 mg Tab RxNorm: 552098 Oral No Start Date 03/07/2011 In active Senokot-S 8.6 mg-50 mg Tab RxNorm: 6421214 1 Tablet(s) PO QD No Sta rt Date 03/07/2011 Inactive metformin ER 500 mg 24 hr tablet,extended release RxNorm: 18 43080 1 Tablet(s) PO QD No Start Date 05/20/2018 Inactive Symbicort 80 mcg-4.5 mcg/actuation HFA Aerosol Inhaler RxNor m: 0068937 2 Puff(s) INH BID No Start Date 04/05/2013 Inactive metoprolol tartrate 25 mg tablet RxNorm: 375037 1 Tablet(s) PO BID No Start Date 05/20/2019 Inactive propranolol 60 mg Tab RxNorm: 283406 1/2 Tablet(s) PO BID No Start Date 07/21/2012 Inactive metformin ER 500 mg 24 hr tablet,extended release RxNorm: 18 64954 2 Tablet(s) PO QD No Start Date 12/16/2017 Inactive Insulin Syringe 1 mL 29 gauge x 1/2" RxNorm: 2 s yringes daily with insulin Dx: E11.65 No Start Date 10/07/2018 Inactive Amitriptyline 75 mg Tab RxNorm: 194844 1 Tablet(s) PO QHS No Start Date 10/23/2009 Inactive donepezil 10 mg Tab RxNorm: 411677 1 Tablet(s) PO QD No Start Date Inactive Lantus Solostar U-100 Insulin 100 unit/mL (3 mL) subcu taneous pen RxNorm: 073744 36 Unit(s) SQ QAM No Start Date 12/24/2017 Inactive Miacalcin 200 unit/Actuation Nasal [place] Aerosol RxNorm: 261 204 1 [place] NASAL QD Alternate nostrils each day No Start Date 04/05/2010 Inactive Amitriptyline 150 mg Tab RxNorm: 792454 1 Tablet(s) PO QHS No Start Date 01/04/2010 Inactive Bystolic 5 mg tablet RxNorm: 697477 1 Tablet(s) PO QD No Start Date 0 08/13/2012 Inactive Aricept 10 mg Tab RxNorm: 908412 1 Tablet(s) PO QD No Start Date 11/03 Inactive Lantus Solostar U-100 Insulin 100 unit/mL (3 mL) subcu taneous pen RxNorm: 228585 50 Unit(s) SQ QAM No Start Date 08/27/2018 Inactive albuterol sulfate 2.5 mg/3 mL (0.083 %) Neb Solution RxNorm: 097954 1 Unit Dose INH QID as needed No Start Date 08/23/2015 Inactive Symbicort 160 mcg-4.5 mcg/actuation HFA Aerosol Inhaler RxNo rm: 5762383 2 Puff(s) INH BID No Start Date 12/03/2011 Inactive Savella 50 mg Tab RxNorm: 804910 1 Tablet(s) PO BID No Start Date 04/2010 Inactive amitriptyline 100 mg Tab RxNorm: 915525 1 1/2 Tablet(s) PO QHS No S tart Date 06/19/2011 Inactive nystatin 100,000 unit/g Topical Cream RxNorm: 660685 Ap plication TOP BID to rash for 2-4 weeks No Start Date 01/14/2011 Inactive Trelegy Ellipta 100 mcg-62.5 mcg-25 mcg powder for inhalatio n RxNorm: 1816687 1 Puff(s) INH QD No Start Date 12/16/2017 Inactive Lyrica 150 mg capsule RxNorm: 332568 1 Capsule(s) PO QHS No Start D ate 12/04/2015 Inactive sennosides 8.6 mg tablet RxNorm: 193747 1 Tablet(s) PO BID No Start Date 09/07/2018 Inactive metformin ER 500 mg tablet,extended release 24 hr RxNorm: 86 0975 1 Tablet(s) PO QD No Start Date 10/22/2017 Inactive Fish Oil 1,000 mg Cap RxNorm: 1 Capsule(s) PO QD No Start Date 06/2011 Inactive Zyrtec 10 mg Tab RxNorm: 7040824 1 Tablet(s) PO QD No Start Date 07/03 Inactive albuterol sulfate HFA 90 mcg/actuation aerosol inhaler RxNor m: 5073221 2 Puff(s) INH Q4H as needed for cough No Start Date 09/30/2013 Inactive trazodone 150 mg tablet RxNorm: 230157 1 Tablet(s) PO QHS No Start Date 07/21/2012 Inactive Spiriva with HandiHaler 18 mcg & inhalation capsules RxNorm: 975025 1 Capsule(s) INH QD No Start Date 04/05/2013 Inactive Coreg 3.125 mg Tab RxNorm: 993312 1 Tablet(s) PO BID No Start Date Inactive Phenergan 25 mg Tab RxNorm: 219336 Tablet(s) PO PRN MIGRAINE No Sta rt Date 11/21/2009 Inactive Vitamin D 50,000 unit Cap RxNorm: 8764521 1 Capsule(s) PO QW No Sta rt Date 03/07/2011 Inactive Januvia 100 mg tablet RxNorm: 467668 1 Tablet(s) PO QD No Start Date 10/25/2015 Inactive Eliquis 5 mg tablet RxNorm: 9884995 1 Tablet(s) PO BID No Start Date 08/19/2018 Inactive Advair Diskus 500 mcg-50 mcg/Dose for Inhalation RxNorm: 437873 1 INH BID No Start Date 07/21/2012 Inactive Vitamin D3 5,000 unit tablet RxNorm: 004032 1 Tablet(s) PO QD No St art Date 07/18/2017 Inactive Amaryl 2 mg tablet RxNorm: 535897 1 Tablet(s) PO QD No Start Date 06/2015 Inactive Actos 30 mg tablet RxNorm: 329314 1 Tablet(s) PO QD No Start Date Inactive promethazine 25 mg tablet RxNorm: 537888 1 Tablet(s) PO Q4H prn N/V No Start Date 07/21/2012 Inactive ProAir HFA 90 mcg/actuation Aerosol Inhaler RxNorm: 796754 2 Puff(s) INH Q4H prn dyspnea No Start Date 07/21/2012 Inactive Dexilant 60 mg Capsule RxNorm: 165438 1 Capsule(s) PO QD No Start D ate 01/27/2012 Inactive Lantus Solostar U-100 Insulin 100 unit/mL (3 mL) subcu taneous pen RxNorm: 757915 38 Unit(s) SQ QAM No Start Date 05/20/2018 Inactive Valium 10 mg Tab RxNorm: 849060 1 Tablet(s) PO QHS AND PRN No Start Date 10/24/2009 Inactive ZOFRAN ODT 8 mg disintegrating tablet RxNorm: 224972 1 Tablet(s ) PO Q6H No Start [...] Date S ervice Location MICROALBUMIN URINE RANDOM 24802 MICRL MG/L 14.9 MG/L Unknown MICROALBUMIN URINE RANDOM 24231 XM.ALB/CRE 6.1 MG/GCR Unknown MICROALBUMIN URINE RANDOM 92948 CREAT MG/D 243 MG/DL Unknown MICROALBUMIN URINE RANDOM 00199 CRE/100 2.43 G/L 03/05 Unknown PROTEIN/CREAT URINE WITH RATIO 96561|00449 PROT R U 14 MG/D L 04/01/2014 Unknown PROTEIN/CREAT URINE WITH RATIO 02227|89492 CREAT R U 254 MG/ DL 04/01/2014 Unknown PROTEIN/CREAT URINE WITH RATIO 49866|52574 XRATIO P/C 55 MG/ G 04/01/2014 Unknown URINALYSIS 32526 PROTEIN UR NEG 04/28/2010 Unknown URINALYSIS 58059 HEMGLBN UR NEG 04/28/2010 Unknown URINALYSIS 76702 GLUCOSE UR NEG 04/28/2010 Unknown URINALYSIS 86886 KETONES UR NEG 04/28/2010 Unknown URINALYSIS 49981 PH U 5.5 04/28/2010 Unknown URINALYSIS 22195 SP GR U 1.025 04/28/2010 Unknown URINALYSIS 21886 BILRUBN UR NEG 04/28/2010 Unknown URINALYSIS 61394 LEUKO UR 2+ 04/28/2010 Unknown URINALYSIS 09487 NITRITE UR NEG 04/28/2010 Unknown MICR CUL? [id number] WBC/HPF 6-10 04/28/2010 Unknown MICR CUL? [id number] RBC/HPF 0-5 04/28/2010 Unknown MICR CUL? [id number] HYAL CAST 16-25 04/28/2010 Unknown MICR CUL? [id number] SP TO YOLIE? NO 04/28/2010 Unknown MICR CUL? [id number] APPEAR UR NORMAL 04/28/2010 Unknown MICR CUL? [id number] SQ EPI/LPF FEW 04/28/2010 Unknown Procedures Procedure Codes Date URINALYSIS NONAUTO W/O SCOPE CPT-4: 29818 04/16/2019 URINE CULTURE/ COLONY COUNT CPT-4: 66957 04/16/2019 CEFTRIAXONE SODIUM INJECTION CPT-4: J0696 04/16/2019 THER/PROPH/DIAG INJ SC/IM CPT-4: 17552 04/16/2019 DRAIN/INJECT JOINT/BURSA CPT-4: 58475 01/22/2019 TRIAMCINOLONE ACET INJ NOS CPT-4: J3301 01/22/2019 DEXAMETHASONE SODIUM PHOS CPT-4: J1100 01/22/2019 URINE CULTURE/ COLONY COUNT CPT-4: 52901 01/07/2019 URINALYSIS NONAUTO W/O SCOPE CPT-4: 74150 01/07/2019 CEFTRIAXONE SODIUM INJECTION CPT-4: J0696 01/07/2019 THER/PROPH/DIAG INJ SC/IM CPT-4: 53607 01/07/2019 FLU VACC PRSV FREE INC ANTIG 65 AND OLDER CPT-4: 91242 12/24/2018 FLU VACC PRSV FREE INC ANTIG 65 AND OLDER CPT-4: 09402 12/24/2018 ADMIN INFLUENZA VIRUS VAC CPT-4: G0008 12/24/2018 THER/PROPH/DIAG INJ SC/IM CPT-4: 15812 11/04/2018 KETOROLAC TROMETHAMINE INJ CPT-4: J1885 11/04/2018 PROMETHAZINE HCL INJECTION CPT-4: J2550 11/04/2018 PPPS, subseq visit CPT-4: G0439 09/18/2018 THER/PROPH/DIAG INJ SC/IM CPT-4: 12316 04/01/2018 KETOROLAC TROMETHAMINE INJ CPT-4: J1885 04/01/2018 PROMETHAZINE HCL INJECTION CPT-4: J2550 04/01/2018 URINE CULTURE/ COLONY COUNT CPT-4: 72389 03/17/2018 URINALYSIS NONAUTO W/O SCOPE CPT-4: 88592 03/17/2018 FLU VACC PRSV FREE INC ANTIG 65 AND OLDER CPT-4: 93883 12/17/2017 PNEUMOCOCCAL VACC 23 RANDALL IM CPT-4: 44176 12/17/2017 ADMIN INFLUENZA VIRUS VAC CPT-4: G0008 12/17/2017 ADMIN PNEUMOCOCCAL VACCINE CPT-4: G0009 12/17/2017 PPPS, subseq visit CPT-4: G0439 09/17/2017 THER/PROPH/DIAG INJ SC/IM CPT-4: 81250 08/26/2017 KETOROLAC TROMETHAMINE INJ CPT-4: J1885 08/26/2017 PROMETHAZINE HCL INJECTION CPT-4: J2550 08/26/2017 URINALYSIS NONAUTO W/O SCOPE CPT-4: 54363 07/19/2017 URINE CULTURE/ COLONY COUNT CPT-4: 07650 07/19/2017 CEFTRIAXONE SODIUM INJECTION CPT-4: J0696 07/19/2017 THER/PROPH/DIAG INJ SC/IM CPT-4: 49903 07/19/2017 THER/PROPH/DIAG INJ SC/IM CPT-4: 25810 07/19/2017 TRIAMCINOLONE ACET INJ NOS CPT-4: J3301 07/19/2017 PRESCRIP TRANSMIT VIA ERX SY CPT-4: G8553 05/07/2017 PRESCRIP TRANSMIT VIA ERX SY CPT-4: G8553 02/22/2017 PRESCRIP TRANSMIT VIA ERX SY CPT-4: G8553 01/23/2017 FLU VACC PRSV FREE INC ANTIG 65 AND OLDER CPT-4: 55050 12/20/2016 PNEUMOCOCCAL VACC 13 RANDALL IM CPT-4: 79265 12/20/2016 ADMIN INFLUENZA VIRUS VAC CPT-4: G0008 12/20/2016 ADMIN PNEUMOCOCCAL VACCINE CPT-4: G0009 12/20/2016 URINALYSIS NONAUTO W/O SCOPE CPT-4: 58260 10/08/2016 URINE CULTURE/ COLONY COUNT CPT-4: 52066 10/08/2016 PRESCRIP TRANSMIT VIA ERX SY CPT-4: G8553 10/08/2016 PRESCRIP TRANSMIT VIA ERX SY CPT-4: G8553 09/19/2016 PRESCRIP TRANSMIT VIA ERX SY CPT-4: G8553 08/20/2016 PRESCRIP TRANSMIT VIA ERX SY CPT-4: G8553 02/29/2016 KETOROLAC TROMETHAMINE INJ CPT-4: J1885 02/02/2016 THER/PROPH/DIAG INJ SC/IM CPT-4: 79935 02/02/2016 PROMETHAZINE HCL INJECTION CPT-4: J2550 02/02/2016 PRESCRIP TRANSMIT VIA ERX SY CPT-4: G8553 02/02/2016 FLU VACC PRSV FREE INC ANTIG 65 AND OLDER CPT-4: 00637 01/05/2016 PPPS, subseq visit CPT-4: G0439 01/05/2016 ADMIN INFLUENZA VIRUS VAC CPT-4: G0008 01/05/2016 URINE CULTURE/ COLONY COUNT CPT-4: 17874 12/05/2015 URINALYSIS NONAUTO W/O SCOPE CPT-4: 28395 12/05/2015 PRESCRIP TRANSMIT VIA ERX SY CPT-4: G8553 12/05/2015 PRESCRIP TRANSMIT VIA ERX SY CPT-4: G8553 10/26/2015 URINALYSIS NONAUTO W/O SCOPE CPT-4: 51640 10/05/2015 URINE CULTURE/ COLONY COUNT CPT-4: 60416 10/05/2015 PRESCRIP TRANSMIT VIA ERX SY CPT-4: G8553 10/05/2015 MD SERVICE REQUIRED FOR PMD CPT-4: G0372 09/15/2015 PRESCRIP TRANSMIT VIA ERX SY CPT-4: G8553 09/15/2015 SPECIAL REPORTS OR FORMS CPT-4: 45833 08/25/2015 PRESCRIP TRANSMIT VIA ERX SY CPT-4: G8553 07/05/2015 URINALYSIS NONAUTO W/O SCOPE CPT-4: 59809 03/30/2015 ASSAY, GLUCOSE, BLOOD QUANT CPT-4: 50379 03/30/2015 URINE CULTURE/ COLONY COUNT CPT-4: 29704 03/30/2015 PRESCRIP TRANSMIT VIA ERX SY CPT-4: G8553 03/30/2015 PRESCRIP TRANSMIT VIA ERX SY CPT-4: G8553 02/03/2015 FLU VACC PRSV FREE INC ANTIG 65 AND OLDER CPT-4: 33057 12/29/2014 ADMIN INFLUENZA VIRUS VAC CPT-4: G0008 12/29/2014 PRESCRIP TRANSMIT VIA ERX SY CPT-4: G8553 12/29/2014 PRESCRIP TRANSMIT VIA ERX SY CPT-4: G8553 09/02/2014 PROTEIN/CREAT URINE WITH RATIO CPT-4: 15286|42890 5 MICROALBUMIN QUANTITATIVE CPT-4: 67247 04/01/2014 PRESCRIP TRANSMIT VIA ERX SY CPT-4: G8553 03/16/2014 PRESCRIP TRANSMIT VIA ERX SY CPT-4: G8553 03/09/2014 THER/PROPH/DIAG INJ SC/IM CPT-4: 26051 03/01/2014 TRIAMCINOLONE ACET INJ NOS CPT-4: J3301 03/01/2014 PRESCRIP TRANSMIT VIA ERX SY CPT-4: G8553 02/09/2014 URINE CULTURE/ COLONY COUNT CPT-4: 25297 10/30/2013 URINALYSIS NONAUTO W/O SCOPE CPT-4: 10216 10/21/2013 URINE CULTURE/ COLONY COUNT CPT-4: 94526 10/21/2013 DESTRUCT PREMALG LESION (Cryosurgery) CPT-4: 32815 PRESCRIP TRANSMIT VIA ERX SY CPT-4: G8553 10/05/2013 URINALYSIS NONAUTO W/O SCOPE CPT-4: 01394 08/04/2013 URINE CULTURE/ COLONY COUNT CPT-4: 44602 08/04/2013 PRESCRIP TRANSMIT VIA ERX SY CPT-4: G8553 08/04/2013 THER/PROPH/DIAG INJ SC/IM CPT-4: 99303 07/13/2013 TRIAMCINOLONE ACET INJ NOS CPT-4: J3301 07/13/2013 PRESCRIP TRANSMIT VIA ERX SY CPT-4: G8553 05/27/2013 URINALYSIS NONAUTO W/O SCOPE CPT-4: 97996 05/25/2013 URINE CULTURE/ COLONY COUNT CPT-4: 61203 05/25/2013 THER/PROPH/DIAG INJ SC/IM CPT-4: 84559 05/04/2013 VITAMIN B12 INJECTION CPT-4: J3420 05/04/2013 THER/PROPH/DIAG INJ SC/IM CPT-4: 13556 04/17/2013 VITAMIN B12 INJECTION CPT-4: J3420 04/17/2013 THER/PROPH/DIAG INJ SC/IM CPT-4: 04075 04/17/2013 METHYLPREDNISOLONE 40 MG INJ CPT-4: J1030 04/17/2013 TRIAMCINOLONE ACET INJ NOS CPT-4: J3301 04/17/2013 URINALYSIS NONAUTO W/O SCOPE CPT-4: 84010 04/06/2013 URINE CULTURE/ COLONY COUNT CPT-4: 66212 04/06/2013 PRESCRIP TRANSMIT VIA ERX SY CPT-4: G8553 04/06/2013 KETOROLAC TROMETHAMINE INJ CPT-4: J1885 06/25/2012 PROMETHAZINE HCL INJECTION CPT-4: J2550 06/25/2012 THER/PROPH/DIAG INJ SC/IM CPT-4: 35683 06/25/2012 THER/PROPH/DIAG INJ SC/IM CPT-4: 85402 06/24/2012 METHYLPREDNISOLONE 40 MG INJ CPT-4: J1030 06/24/2012 TRIAMCINOLONE ACET INJ NOS CPT-4: J3301 06/24/2012 URINE CULTURE/ COLONY COUNT CPT-4: 97751 06/24/2012 THER/PROPH/DIAG INJ SC/IM CPT-4: 18637 05/20/2012 KETOROLAC TROMETHAMINE INJ CPT-4: J1885 05/20/2012 THER/PROPH/DIAG INJ SC/IM CPT-4: 24596 05/20/2012 PROMETHAZINE HCL INJECTION CPT-4: J2550 05/20/2012 DRAIN/INJECT JOINT/BURSA CPT-4: 07465 02/13/2012 METHYLPREDNISOLONE 40 MG INJ CPT-4: J1030 02/13/2012 TRIAMCINOLONE ACET INJ NOS CPT-4: J3301 02/13/2012 THER/PROPH/DIAG INJ SC/IM CPT-4: 41903 11/14/2011 METHYLPREDNISOLONE 40 MG INJ CPT-4: J1030 11/14/2011 TRIAMCINOLONE ACET INJ NOS CPT-4: J3301 11/14/2011 THER/PROPH/DIAG INJ SC/IM CPT-4: 14519 09/12/2011 KETOROLAC TROMETHAMINE INJ CPT-4: J1885 09/12/2011 THER/PROPH/DIAG INJ SC/IM CPT-4: 14714 08/09/2011 METHYLPREDNISOLONE 40 MG INJ CPT-4: J1030 08/09/2011 TRIAMCINOLONE ACET INJ NOS CPT-4: J3301 08/09/2011 URINE CULTURE/ COLONY COUNT CPT-4: 71514 07/03/2011 URINE CULTURE/ COLONY COUNT CPT-4: 47609 06/04/2011 THER/PROPH/DIAG INJ SC/IM CPT-4: 09835 05/03/2011 METHYLPREDNISOLONE 40 MG INJ CPT-4: J1030 05/03/2011 TRIAMCINOLONE ACET INJ NOS CPT-4: J3301 05/03/2011 URINALYSIS NONAUTO W/O SCOPE CPT-4: 69428 01/24/2011 URINE CULTURE/ COLONY COUNT CPT-4: 22620 01/24/2011 FLUZONE, 5ML (Medicare) CPT-4: Q2038 01/02/2011 ADMIN INFLUENZA VIRUS VAC CPT-4: G0008 01/02/2011 ASSAY, GLUCOSE, BLOOD QUANT CPT-4: 43095 12/07/2010 URINE CULTURE/ COLONY COUNT CPT-4: 81816 11/02/2010 THER/PROPH/DIAG INJ SC/IM CPT-4: 96112 10/18/2010 METHYLPREDNISOLONE 40 MG INJ CPT-4: J1030 10/18/2010 TRIAMCINOLONE ACET INJ NOS CPT-4: J3301 10/18/2010 TRIAMCINOLONE ACET INJ NOS CPT-4: J3301 05/11/2010 METHYLPREDNISOLONE 40 MG INJ CPT-4: J1030 05/11/2010 THER/PROPH/DIAG INJ SC/IM CPT-4: 42889 05/11/2010 TRIAMCINOLONE ACET INJ NOS CPT-4: J3301 02/09/2010 METHYLPREDNISOLONE 40 MG INJ CPT-4: J1030 02/09/2010 THER/PROPH/DIAG INJ SC/IM CPT-4: 09094 02/09/2010 SERVICE REQUIRED FOR PMD CPT-4: G0372 02/09/2010 FLU VACCINE 3 YRS & > IM UP 64 CPT-4: 70194 0 PNEUMOCOCCAL VACC 23 RANDALL IM CPT-4: 20294 12/07/2009 ADMIN INFLUENZA VIRUS VAC CPT-4: G0008 12/07/2009 ADMIN PNEUMOCOCCAL VACCINE CPT-4: G0009 12/07/2009 TRIAMCINOLONE ACET INJ NOS CPT-4: J3301 05/26/2009 THER/PROPH/DIAG INJ SC/IM CPT-4: 47155 05/26/2009 METHYLPREDNISOLONE 80 MG INJ CPT-4: J1040 [...] 1: 114/72 Code: 8480-6 BMI: 37.8 Code: 68694-0 Heart Rate 1: 72 bpm Height: 5'3" [...] 1: 106/68 Code: 8480-6 BMI: 35.7 Code: 66571-6 Heart Rate 1: 72 bpm Height: 5'4" Respiratory Rate: 20 bpm SpO2: 98% Tempera ture: 36.7 (C) / 98.0 (F) Weight: 208 lbs 04/16/2018 Blood Pressure 1: 132/82 Code: 8480-6 BMI: 37.9 Code: 97131-8 Heart Rate 1: 72 bpm Height: 5'4" Respiratory Rate: 20 bpm SpO2: 96% Tempera ture: 37.1 (C) / 98.8 (F) Weight: 221 lbs 04/01/2018 Blood Pressure 1: 150/90 Code: 8480-6 Heart Rate 1: 72 bpm Respiratory Rate: 22 bpm SpO2: 95% Temperature: 36.4 (C) / 97.6 (F) We ight: 216 lbs 03/06/2018 Blood Pressure 1: 126/78 Code: 8480-6 BMI: 37.4 Code: 19992-0 Heart Rate 1: 68 bpm Height: 5'4" [...] ight: 222 lbs 12/25/2017 BMI: 37.8 Code: 02212-2 Heart Rate 1: 76 bpm Height: 5 '4" Respiratory Rate: 20 bpm SpO2: 96% Temperature: 37.3 (C) / 99.2 (F) Weight: 220 lbs 12/17/2017 Blood Pressure 1: 132/78 Code: 8480-6 BMI: 37.2 Code: 00271-1 Heart Rate 1: 88 bpm Height: 5'4" Respiratory Rate: 20 bpm SpO2: 96% Tempera ture: 37.3 (C) / 99.2 (F) Weight: 217 lbs 10/30/2017 Blood Pressure 1: 114/68 Code: 8480-6 BMI: 36.4 Code: 23708-8 Heart Rate 1: 72 bpm Height: 5'4" Respiratory Rate: 22 bpm SpO2: 96% Tempera ture: 36.8 (C) / 98.2 (F) Weight: 212 lbs 10/23/2017 Blood Pressure 1: 124/78 Code: 8480-6 Heart Rate 1: 72 bpm Respiratory Rate: 24 bpm SpO2: 94% Temperature: 36.6 (C) / 97.9 (F) We ight: 212 lbs 09/17/2017 Blood Pressure 1: 128/82 Code: 8480-6 BMI: 37.4 Code: 36763-0 Heart Rate 1: 72 bpm Height: 5'4" Respiratory Rate: 20 bpm SpO2: 96% Tempera ture: 37.0 (C) / 98.6 (F) Weight: 218 lbs 07/19/2017 Blood Pressure 1: 136/84 Code: 8480-6 BMI: 36.6 Code: 20973-1 Heart Rate 1: 88 bpm Height: 5'4" Respiratory Rate: 20 bpm SpO2: 97% Tempera ture: 36.7 (C) / 98.0 (F) Weight: 213 lbs 05/29/2017 Blood Pressure 1: 136/82 Code: 8480-6 BMI: 36.7 Code: 11768-0 Heart Rate 1: 72 bpm Height: 5'4" Respiratory Rate: 20 bpm SpO2: 97% Tempera ture: 36.9 (C) / 98.4 (F) Weight: 214 lbs 05/07/2017 Blood Pressure 1: 122/80 Code: 8480-6 BMI: 37.1 Code: 71432-1 Heart Rate 1: 80 bpm Height: 5'4" Respiratory Rate: 24 bpm SpO2: 96% Tempera ture: 36.1 (C) / 97.0 (F) Weight: 216 lbs 03/18/2017 BMI: 36.7 Code: 44083-0 Heart Rate 1: 80 bpm Height: 5 '4" Respiratory Rate: 22 bpm SpO2: 95% Temperature: 36.9 (C) / 98.4 (F) Weight: 214 lbs 02/27/2017 Blood Pressure 1: 146/94 Code: 8480-6 BMI: 36.6 Code: 94176-2 Heart Rate 1: 76 bpm Height: 5'4" Respiratory Rate: 22 bpm SpO2: 97% Tempera ture: 36.6 (C) / 97.9 (F) Weight: 213 lbs 02/22/2017 Blood Pressure 1: 126/90 Code: 8480-6 BMI: 36.4 Code: 77025-8 Heart Rate 1: 84 bpm Height: 5'4" Respiratory Rate: 22 bpm SpO2: 95% Tempera ture: 36.9 (C) / 98.4 (F) Weight: 212 lbs 01/23/2017 Blood Pressure 1: 146/82 Code: 8480-6 BMI: 37.6 Code: 78710-6 Heart Rate 1: 96 bpm Height: 5'4" Respiratory Rate: 20 bpm SpO2: 96% Tempera ture: 36.9 (C) / 98.4 (F) Weight: 219 lbs 12/20/2016 Blood Pressure 1: 126/70 Code: 8480-6 BMI: 37.2 Code: 33902-3 Heart Rate 1: 76 bpm Height: 5'4" Respiratory Rate: 22 bpm SpO2: 95% Tempera ture: 36.6 (C) / 97.8 (F) Weight: 217 lbs 10/08/2016 Blood Pressure 1: 128/82 Code: 8480-6 BMI: 36.9 Code: 35488-4 Heart Rate 1: 76 bpm Height: 5'4" Respiratory Rate: 20 bpm SpO2: 95% Tempera ture: 37.0 (C) / 98.6 (F) Weight: 215 lbs 09/19/2016 Blood Pressure 1: 144/78 Code: 8480-6 BMI: 37.8 Code: 40655-9 Heart Rate 1: 76 bpm Height: 5'4" Respiratory Rate: 22 bpm SpO2: 95% Tempera ture: 37.0 (C) / 98.6 (F) Weight: 220 lbs 08/20/2016 Blood Pressure 1: 140/86 Code: 8480-6 BMI: 37.4 Code: 99090-2 Heart Rate 1: 80 bpm Height: 5'4" Respiratory Rate: 20 bpm SpO2: 95% Tempera ture: 36.9 (C) / 98.4 (F) Weight: 218 lbs 06/19/2016 Blood Pressure 1: 124/78 Code: 8480-6 BMI: 37.8 Code: 11148-6 Heart Rate 1: 74 bpm Height: 5'4" Respiratory Rate: 24 bpm SpO2: 96% Tempera ture: 36.9 (C) / 98.4 (F) Weight: 220 lbs 06/04/2016 Blood Pressure 1: 12478 Code: 8480-6 BMI: 38.8 Code: 96540-5 Heart Rate 1: 72 bpm Height: 5'4" Respiratory Rate: 24 bpm SpO2: 95% Tempera ture: 36.8 (C) / 98.2 (F) Weight: 226 lbs 05/02/2016 Blood Pressure 1: 136/90 Code: 8480-6 BMI: 37.6 Code: 05874-4 Heart Rate 1: 72 bpm Height: 5'4" Respiratory Rate: 24 bpm SpO2: 96% Tempera ture: 36.9 (C) / 98.4 (F) Weight: 219 lbs 04/03/2016 Blood Pressure 1: 126/78 Code: 8480-6 BMI: 38.1 Code: 78536-9 Heart Rate 1: 72 bpm Height: 5'4" Respiratory Rate: 22 bpm SpO2: 94% Tempera ture: 36.9 (C) / 98.4 (F) Weight: 222 lbs 02/29/2016 Blood Pressure 1: 132/78 Code: 8480-6 Heart Rate 1: 78 bpm Height: Respiratory Rate: 24 bpm SpO2: 95% Temperature: 36.4 (C) / 97.6 (F) We ight: 02/02/2016 Blood Pressure 1: 124/78 Code: 8480-6 BMI: 37.6 Code: 66319-9 Heart Rate 1: 76 bpm Height: 5'4" Respiratory Rate: 20 bpm SpO2: 95% Tempera ture: 36.8 (C) / 98.2 (F) Weight: 219 lbs 01/05/2016 Blood Pressure 1: 126/70 Code: 8480-6 BMI: 37.1 Code: 50869-4 Heart Rate 1: 76 bpm Height: 5'4" Respiratory Rate: 20 bpm Temperature: 36 .6 (C) / 97.8 (F) Weight: 216 lbs 12/05/2015 Blood Pressure 1: 126/72 Code: 8480-6 BMI: 36.9 Code: 56949-4 Heart Rate 1: 92 bpm Height: 5'4" Respiratory Rate: 20 bpm Temperature: 36 .7 (C) / 98.1 (F) Weight: 215 lbs 10/26/2015 Blood Pressure 1: 142/80 Code: 8480-6 BMI: 36.4 Code: 28169-4 Heart Rate 1: 82 bpm Height: 5'4" Respiratory Rate: 24 bpm SpO2: 92% Tempera ture: 35.9 (C) / 96.7 (F) Weight: 212 lbs 10/05/2015 Blood Pressure 1: 136/82 Code: 8480-6 Heart Rate 1: 80 bpm Respiratory Rate: 18 bpm SpO2: 98% Temperature: 35.7 (C) / 96.3 (F) We ight: 214 lbs 09/15/2015 Blood Pressure 1: 116/80 Code: 8480-6 BMI: 34.6 Code: 68176-3 Heart Rate 1: 76 bpm Height: 5'6" Respiratory Rate: 20 bpm Temperature: 36 .6 (C) / 97.9 (F) Weight: 211 lbs 08/24/2015 Blood Pressure 1: 124/80 Code: 8480-6 BMI: 34.1 Code: 07658-9 Heart Rate 1: 68 bpm Height: 5'6" Respiratory Rate: 20 bpm Temperature: 36 .8 (C) / 98.3 (F) Weight: 208 lbs 07/05/2015 Blood Pressure 1: 114/78 Code: 8480-6 BMI: 33.9 Code: 25680-6 Heart Rate 1: 80 bpm Height: 5'6" Respiratory Rate: 20 bpm Temperature: 36 .6 (C) / 97.9 (F) Weight: 207 lbs 06/06/2015 Blood Pressure 1: 122/78 Code: 8480-6 BMI: 34.1 Code: 49757-4 Heart Rate 1: 76 bpm Height: 5'6" Respiratory Rate: 24 bpm SpO2: 96% Tempera ture: 36.4 (C) / 97.6 (F) Weight: 208 lbs 05/23/2015 Blood Pressure 1: 124/78 Code: 8480-6 Heart Rate 1: 76 bpm Respiratory Rate: 24 bpm SpO2: 93% Temperature: 36.8 (C) / 98.2 (F) We ight: 212 lbs 05/05/2015 Blood Pressure 1: 136/80 Code: 8480-6 BMI: 35.4 Code: 78540-6 Heart Rate 1: 76 bpm Height: 5'6" Respiratory Rate: 28 bpm Temperature: 37 .0 (C) / 98.6 (F) Weight: 216 lbs 03/30/2015 Blood Pressure 1: 132/86 Code: 8480-6 BMI: 35.2 Code: 91754-2 Heart Rate 1: 84 bpm Height: 5'6" Respiratory Rate: 24 bpm Temperature: 36 .7 (C) / 98.0 (F) Weight: 215 lbs 02/03/2015 Blood Pressure 1: 122/74 Code: 8480-6 BMI: 35.7 Code: 35370-8 Heart Rate 1: 84 bpm Height: 5'6" Respiratory Rate: 20 bpm Temperature: 36 .9 (C) / 98.5 (F) Weight: 218 lbs 12/29/2014 Blood Pressure 1: 132/80 Code: 8480-6 BMI: 35.1 Code: 31518-9 Heart Rate 1: 80 bpm Height: 5'6" Respiratory Rate: 20 bpm Temperature: 36 .6 (C) / 97.8 (F) Weight: 214 lbs 09/02/2014 Blood Pressure 1: 128/92 Code: 8480-6 BMI: 34.7 Code: 80983-1 Heart Rate 1: 84 bpm Height: 5'6" Respiratory Rate: 26 bpm Temperature: 36 .8 (C) / 98.2 (F) Weight: 212 lbs 08/25/2014 Blood Pressure 1: 124/80 Code: 8480-6 BMI: 34.7 Code: 19723-0 Heart Rate 1: 78 bpm Height: 5'6" Respiratory Rate: 22 bpm SpO2: 97% Tempera ture: 36.6 (C) / 97.8 (F) Weight: 212 lbs 04/01/2014 Blood Pressure 1: 142/84 Code: 8480-6 BMI: 34.4 Code: 30972-3 Heart Rate 1: 74 bpm Height: 5'5" Respiratory Rate: 20 bpm Temperature: 36 .4 (C) / 97.6 (F) Weight: 207 lbs 03/16/2014 Blood Pressure 1: 142/90 Code: 8480-6 BMI: 34.6 Code: 05097-0 Heart Rate 1: 76 bpm Height: 5'5" Respiratory Rate: 24 bpm Temperature: 36 .5 (C) / 97.7 (F) Weight: 208 lbs 03/09/2014 Blood Pressure 1: 116/70 Code: 8480-6 BMI: 35.3 Code: 69844-6 Heart Rate 1: 72 bpm Height: 5'5" [...] 1: 128/86 Code: 8480-6 BMI: 34.3 Code: 09217-2 Heart Rate 1: 84 bpm Height: 5'5" Respiratory Rate: 20 bpm Temperature: 36 .7 (C) / 98.0 (F) Weight: 206 lbs 12/23/2013 Blood Pressure 1: 122/70 Code: 8480-6 BMI: 34.3 Code: 90299-4 Heart Rate 1: 68 bpm Height: 5'5" Respiratory Rate: 20 bpm Temperature: 36 .8 (C) / 98.2 (F) Weight: 206 lbs 10/05/2013 Blood Pressure 1: 118/76 Code: 8480-6 BMI: 34.1 Code: 84948-8 Heart Rate 1: 68 bpm Height: 5'5" Respiratory Rate: 20 bpm SpO2: 98% Tempera ture: 36.6 (C) / 97.9 (F) Weight: 205 lbs 08/04/2013 Blood Pressure 1: 126/82 Code: 8480-6 BMI: 33.3 Code: 99310-2 Heart Rate 1: 76 bpm Height: 5'5" Respiratory Rate: 20 bpm Temperature: 36 .8 (C) / 98.2 (F) Weight: 200 lbs 07/03/2013 Blood Pressure 1: 124/82 Code: 8480-6 BMI: 33.3 Code: 90541-8 Heart Rate 1: 72 bpm Height: 5'5" Respiratory Rate: 22 bpm Temperature: 36 .1 (C) / 97.0 (F) Weight: 200 lbs 05/27/2013 Blood Pressure 1: 126/82 Code: 8480-6 Heart Rate 1: 74 bpm Respiratory Rate: 20 bpm Temperature: 36.0 (C) / 96.8 (F) Weight: 199 lbs 04/06/2013 Blood Pressure 1: 118/80 Code: 8480-6 BMI: 35.2 Code: 58514-1 Heart Rate 1: 80 bpm Height: 5'4" Respiratory Rate: 20 bpm Temperature: 37 .4 (C) / 99.3 (F) Weight: 205 lbs 11/10/2012 Blood Pressure 1: 128/82 Code: 8480-6 Heart Rate 1: 84 bpm Respiratory Rate: 20 bpm Temperature: 36.7 (C) / 98.0 (F) Weight: 199 lbs 09/02/2012 Blood Pressure 1: 116/82 Code: 8480-6 BMI: 34.2 Code: 49545-0 Heart Rate 1: 88 bpm Height: 5'4" Respiratory Rate: 22 bpm Temperature: 36 .6 (C) / 97.8 (F) Weight: 199 lbs 08/04/2012 Blood Pressure 1: 128/74 Code: 8480-6 BMI: 34.0 Code: 75744-9 Heart Rate 1: 92 bpm Height: 5'4" Respiratory Rate: 20 bpm Temperature: 36 .4 (C) / 97.5 (F) Weight: 198 lbs 07/21/2012 Blood Pressure 1: 124/86 Code: 8480-6 Heart Rate 1: 116 bpm Respiratory Rate: 24 bpm Temperature: 36.8 (C) / 98.2 (F) 07/02/2012 Blood Pressure 1: 116/88 Code: 8480-6 BMI: 33.6 Code: 86533-8 Heart Rate 1: 76 bpm Height: 5'4" Respiratory Rate: 20 bpm Temperature: 36 .8 (C) / 98.3 (F) Weight: 196 lbs 06/24/2012 Blood Pressure 1: 124/80 Code: 8480-6 BMI: 34.3 Code: 37865-2 Heart Rate 1: 72 bpm Height: 5'4" SpO2: 96% Temperature: 36.3 (C) / 97.3 (F) Weight: 200 lbs 05/20/2012 Blood Pressure 1: 116/88 Code: 8480-6 BMI: 33.8 Code: 87283-9 Heart Rate 1: 80 bpm Height: 5'4" Respiratory Rate: 22 bpm Temperature: 36 .9 (C) / 98.4 (F) Weight: 197 lbs 05/08/2012 Blood Pressure 1: 128/86 Code: 8480-6 BMI: 33.8 Code: 12692-6 Heart Rate 1: 76 bpm Height: 5'4" Respiratory Rate: 26 bpm SpO2: 95% Tempera ture: 36.1 (C) / 97.0 (F) Weight: 197 lbs 04/22/2012 Blood Pressure 1: 106/64 Code: 8480-6 BMI: 33.8 Code: 71947-8 Heart Rate 1: 70 bpm Height: 5'4" Temperature: 36.1 (C) / 97.0 (F) Weight: 197 lbs 02/13/2012 Blood Pressure 1: 126/82 Code: 8480-6 BMI: 34.7 Code: 16118-4 Heart Rate 1: 64 bpm Height: 5'4" Respiratory Rate: 20 bpm Temperature: 36 .6 (C) / 97.8 (F) Weight: 202 lbs 01/28/2012 Blood Pressure 1: 116/80 Code: 8480-6 BMI: 34.7 Code: 42165-3 Heart Rate 1: 76 bpm Height: 5'4" Respiratory Rate: 20 bpm Temperature: 36 .8 (C) / 98.3 (F) Weight: 202 lbs 12/26/2011 Blood Pressure 1: 132/82 Code: 8480-6 BMI: 36.0 Code: 78737-7 Heart Rate 1: 68 bpm Height: 5'4" Respiratory Rate: 22 bpm Temperature: 36 .7 (C) / 98.0 (F) Weight: 210 lbs 11/14/2011 Blood Pressure 1: 124/80 Code: 8480-6 BMI: 36.4 Code: 58768-1 Heart Rate 1: 76 bpm Height: 5'4" Respiratory Rate: 20 bpm Temperature: 36 .8 (C) / 98.2 (F) Weight: 212 lbs 09/12/2011 Blood Pressure 1: 108/74 Code: 8480-6 BMI: 37.1 Code: 63793-0 Heart Rate 1: 72 bpm Height: 5'4" Respiratory Rate: 20 bpm Temperature: 37 .0 (C) / 98.6 (F) Weight: 216 lbs 08/15/2011 Blood Pressure 1: 122/80 Code: 8480-6 BMI: 36.9 Code: 47337-9 Heart Rate 1: 76 bpm Height: 5'4" Respiratory Rate: 20 bpm Temperature: 36 .2 (C) / 97.1 (F) Weight: 215 lbs 08/09/2011 Blood Pressure 1: 112/78 Code: 8480-6 BMI: 36.9 Code: 21520-2 Heart Rate 1: 68 bpm Height: 5'4" Respiratory Rate: 20 bpm Temperature: 36 .7 (C) / 98.0 (F) Weight: 215 lbs 07/03/2011 Blood Pressure 1: 140/94 Code: 8480-6 BMI: 36.2 Code: 45519-8 Heart Rate 1: 68 bpm Height: 5'4" Temperature: 36.0 (C) / 96.8 (F) Weight: 211 lbs 06/04/2011 Blood Pressure 1: 124/70 Code: 8480-6 BMI: 36.7 Code: 10956-2 Heart Rate 1: 68 bpm Height: 5'4" Respiratory Rate: 20 bpm Temperature: 36 .6 (C) / 97.9 (F) Weight: 214 lbs 05/03/2011 Blood Pressure 1: 130/76 Code: 8480-6 BMI: 36.4 Code: 48906-3 Heart Rate 1: 74 bpm Height: 5'5" Temperature: 36.2 (C) / 97.2 (F) Weight: 219 lbs 04/05/2011 Blood Pressure 1: 124/86 Code: 8480-6 BMI: 35.9 Code: 01962-7 Heart Rate 1: 76 bpm Height: 5'6" Respiratory Rate: 22 bpm Temperature: 36 .3 (C) / 97.3 (F) Weight: 219 lbs 03/08/2011 Blood Pressure 1: 112/78 Code: 8480-6 BMI: 35.1 Code: 35231-8 Heart Rate 1: 80 bpm Height: 5'6" Respiratory Rate: 26 bpm Temperature: 36 .9 (C) / 98.4 (F) Weight: 214 lbs 01/24/2011 Blood Pressure 1: 110/82 Code: 8480-6 BMI: 35.6 Code: 93215-8 Heart Rate 1: 80 bpm Height: 5'6" Temperature: 36.1 (C) / 97.0 (F) Weight: 217 lbs 01/02/2011 Blood Pressure 1: 106/72 Code: 8480-6 BMI: 35.6 Code: 27194-2 Heart Rate 1: 76 bpm Height: 5'6" [...] 1: 120/74 Code: 8480-6 BMI: 35.9 Code: 00578-8 Heart Rate 1: 72 bpm Height: 5'5" Temperature: 36.3 (C) / 97.4 (F) Weight: 216 lbs 09/19/2010 Blood Pressure 1: 124/80 Code: 8480-6 BMI: 35.4 Code: 65429-4 Heart Rate 1: 76 bpm Height: 5'5" [...] 1: 122/78 Code: 8480-6 BMI: 37.4 Code: 88609-7 Heart Rate 1: 84 bpm Height: 5'5" [...] follow up 10/26/2015 ER visit from at [facility] for COPD Exacerbation follow up 10/05/2015 ER Visit gait abnormality 09/15/2015 Patient requesting kelly pineda paperwork to be filled out disturbances of thinking 08/24/2015 follow up 07/05/2015 4wk fwup follow up 06/06/2015 [facility] cough 05/23/2015 follow up 05/05/2015 dyspnea 03/30/2015 [facility] needs new orde r for O2 abdominal pain 02/03/2015 cyst 12/29/2014 vs abscess follow up 09/02/2014 [facility] headache 08/25/2014 facial drooping follow up 04/01/2014 ER follow up 03/16/2014 1wk fwup follow up 03/09/2014 1mo fwup and bronchi tis fwup follow up 03/03/2014 2 day follow up 03/01/2014 ER follow up 02/09/2014 [facility] gastroesophageal reflux 12/23/2013 painful urination 10/30/2013 [...] up 08/04/2012 2wk fwup follow up 07/21/2012 [facility]--[facility] an sore throat 07/02/2012 headache 06/25/2012 [...] up 10/18/[address] Marcela sagastume w [facility], having increased allergy symptoms. Would like steroid [...] month f/u follow up 12/07/[facility], done with PT--finished about 2wks ago [...] K59.00] Pattie Floresjuan BRUNSON S. Emma WICK [employer] CPT-4: 60351 08/04/2019 ([id number]) OFFICE/OUTPATIENT VISIT EST Diagnosis: Inspiratory stridor[ICD10: R06.1] Diagnosis: Diarrhea[ICD10: R19.7] Belia Reid [facility] CPT-4: 9921 3 07/06/2019 ([id number]) OFFICE/OUTPATIENT VISIT EST Diagnosis: Left leg swelling[ICD10: M79.89] Diagnosis: Dyspnea[ICD10: R06.00] Belia Reid [facility] CPT-4: 9921 3 06/24/2019 ([id number]) OFFICE/OUTPATIENT VISIT EST Diagnosis: Acute bronchitis[ICD10: J20.9] Diagnosis: Colitis[ICD10: K52.9] [facility] CPT-4: 38480 06/16/2019 ([id number]) OFFICE/OUTPATIENT VISIT EST Diagnosis: Diarrhea[ICD10: R19.7] Diagnosis: Abdominal bloating[ICD10: R14.0] Belia Reid [facility] CPT- 4: 84894 06/08/2019 ([id number]) OFFICE/OUTPATIENT VISIT EST Diagnosis: Acute febrile illness[ICD10: R50.9] Diagnosis: Colitis[ICD10: K52.9] Belia Reid [facility] CPT-4: 54288 05/26/2019 ([id number]) OFFICE/OUTPATIENT VISIT EST Diagnosis: Chronic obstructive pulmonary disease, unspecified[ICD10: J44.9] Diagnosis: Pulmonary fibrosis[ICD10: J84.10] Diagnosis: Intermittent stridor[ICD10: R06.1] Diagnosis: Muscle weakness[ICD10: M62.81] Belia REID DO [facility] CPT-4: 66139 05/13/2019 ([id number]) OFFICE/OUTPATIENT VISIT EST Diagnosis: Stridor[ICD10: R06.1] Diagnosis: COUGH[ICD10: R05] Belia REID DO [facility] CPT-4: 79971 05/06/2019 ([id number]) OFFICE/OUTPATIENT VISIT EST Diagnosis: Stridor[ICD10: R06.1] Diagnosis: Muscle, jerky movements (uncontrolled)[ICD10: G25.5] Belia REID [facility] CPT-4: 53074 04/29/2019 ([id number]) OFFICE/OUTPATIENT VISIT EST Diagnosis: Upper respiratory infection[ICD10: J06.9] Diagnosis: Flank pain[ICD10: R10.9] Diagnosis: Weight gain[ICD10: R63.5] Pattie AMBRIZ [facility] CPT-4: 31970 04/16/2019 ([id number]) OFFICE/OUTPATIENT VISIT EST Diagnosis: Generalized pruritus[ICD10: L29.9] Belia REID [facility] CPT-4: 76926 04/08/2019 ([id number]) OFFICE/OUTPATIENT VISIT EST Diagnosis: Acute bursitis of left shoulder[ICD10: M75.52] Diagnosis: Cervicalgia[ICD10: M54.2] Diagnosis: Chest wall pain[ICD10: R07.89] Belia REID [facility] CPT-4: 48794 01/22/2019 ([id number]) OFFICE/OUTPATIENT VISIT EST Diagnosis: Abdominal pain[ICD10: R10.9] Diagnosis: Pyelonephritis[ICD10: N12] Pattie GORDILLO ALBERTO [facility] CPT-4: 08638 01/07/2019 ([id number]) OFFICE/OUTPATIENT VISIT EST Diagnosis: Low back pain[ICD10: M54.5] Diagnosis: Left lumbar radiculopathy[ICD10: M54.16] Diagnosis: Left flank pain[ICD10: R10.9] Diagnosis: Left lower quadrant pain[ICD10: R10.32] Diagnosis: FLU VACCINE[ICD10: Z23] Belia FREDERICK DO [facility] CPT-4: 03717 12/24/2018 ([id number]) OFFICE/OUTPATIENT VISIT EST Diagnosis: Migraine, unspecified, not intractable, without status migrainosus[ICD10: G43.909] Diagnosis: Fibromyalgia[ICD10: M79.7] Belia DOMINGUEZ [facility] CPT-4: 22205 11/20/2018 ([id number]) OFFICE/OUTPATIENT VISIT EST Diagnosis: Migraine, unspecified, intractable, without status migrainosus[ICD10: G43.919] Diagnosis: Acute sinusitis, unspecified[ICD10: J01.90] Pattie REID DO [facility] CPT-4: 71838 11/04/2018 ([id number]) OFFICE/OUTPATIENT VISIT EST Diagnosis: Pain in left wrist[ICD10: M25.532] Diagnosis: Other dorsalgia[ICD10: M54.89] Pattie REID DO [facility] CPT-4: 78078 09/08/2018 ([id number]) OFFICE/OUTPATIENT VISIT EST Diagnosis: Acute stress reaction[ICD10: F43.0] Diagnosis: Pruritus, unspecified[ICD10: L29.9] 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, 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] Belia REID [facility] CPT-4: 31421 08/20/2018 ([id number]) OFFICE/OUTPATIENT VISIT EST Diagnosis: Hypotension due to drugs[ICD10: I95.2] Diagnosis: Paroxysmal atrial fibrillation[ICD10: I48.0] Diagnosis: Localized edema[ICD10: R60.0] Belia REID DO [facility] CPT-4: 41011 06/19/2018 ([id number]) OFFICE/OUTPATIENT VISIT EST Diagnosis: Generalized hyperhidrosis[ICD10: R61] Diagnosis: Essential (primary) hypertension[ICD10: I10] Diagnosis: Supraventricular tachycardia[ICD10: I47.1] Belia REID DO [facility] CPT-4: 78742 06/09/2018 ([id number]) OFFICE/OUTPATIENT VISIT EST Diagnosis: Stridor[ICD10: R06.1] Diagnosis: Dependence on supplemental oxygen[ICD10: Z99.81] Diagnosis: Weakness[ICD10: R53.1] Diagnosis: Supraventricular tachycardia[ICD10: I47.1] Belia REID DO [facility] CPT-4: 37050 05/21/2018 ([id number]) OFFICE/OUTPATIENT VISIT EST Diagnosis: Cervical disc disorder with radiculopathy, unspecified cervical region[ICD10: M50.10] Belia REID [facility] CPT-4: 11178 04/16/2018 ([id number]) OFFICE/OUTPATIENT VISIT EST Diagnosis: Migraine, unspecified, intractable, without status migrainosus[ICD10: G43.919] Diagnosis: Fibromyalgia[ICD10: M79.7] Pattie DOMINGUEZ [facility] CPT-4: 34008 04/01/2018 ([id number]) NURSE/OUTPATIENT VISIT EST Diagnosis: Hematuria, unspecified[ICD10: R31.9] Diagnosis: Dysuria[ICD10: R30.0] Belia REID [facility] CPT-4: 38881 03/17/2018 ([id number]) OFFICE/OUTPATIENT VISIT EST Diagnosis: Erythema intertrigo[ICD10: L30.4] Diagnosis: Chronic obstructive pulmonary disease with (acute) exacerbation[ICD10: J44.1] Diagnosis: Type 2 diabetes mellitus with hyperglycemia[ICD10: E11.65] Belia REID [facility] CPT-4: 07936 03/06/2018 ([id number]) OFFICE/OUTPATIENT VISIT EST Diagnosis: Cervicalgia[ICD10: M54.2] Pattie AMBRIZ [facility] CPT-4: 21109 02/05/2018 ([id number]) OFFICE/OUTPATIENT VISIT EST Diagnosis: Candidiasis of skin and nail[ICD10: B37.2] Diagnosis: Cervicalgia[ICD10: M54.2] Pattie AMBRIZ [facility] CPT-4: 76895 01/20/2018 ([id number]) OFFICE/OUTPATIENT VISIT EST Diagnosis: Pain in thoracic spine[ICD10: M54.6] Diagnosis: Radiculopathy, thoracic region[ICD10: M54.14] Belia [facility] CPT-4: 63385 12/25/2017 ([id number]) OFFICE/OUTPATIENT VISIT EST Diagnosis: Pain in thoracic spine[ICD10: M54.6] Diagnosis: Other muscle spasm[ICD10: M62.838] Diagnosis: FLU VACCINE[ICD10: Z23] Diagnosis: PNEUMOCOCCAL VACCINE[ICD10: Z23] Belia [facility] CPT-4: 90225 12/17/2017 ([id number]) OFFICE/OUTPATIENT VISIT EST Diagnosis: Chronic obstructive pulmonary disease with (acute) exacerbation[ICD10: J44.1] Belia REID [facility] CPT- 4: 81272 10/30/2017 ([id number]) OFFICE/OUTPATIENT VISIT EST Diagnosis: Chronic obstructive pulmonary disease with acute lower respiratory infection[ICD10: J44.0] Diagnosis: Mild intermittent asthma with (acute) exacerbation[ICD10: J45.21] Belia REID [facility] CPT-4: 22767 10/23/2017 ([id number]) NURSE/OUTPATIENT VISIT EST Diagnosis: Migraine, unspecified, not intractable, without status migrainosus[ICD10: G43.909] Belia REID [facility] CPT - 4: 76004 08/26/2017 ([id number]) OFFICE/OUTPATIENT VISIT EST Diagnosis: Urinary tract infection, site not specified[ICD10: N39.0] Diagnosis: Encounter for screening for osteoporosis[ICD10: Z13.820] Diagnosis: Encounter for screening mammogram for malignant neoplasm of breast[ICD10: Z12.31] Diagnosis: Acute bronchitis, unspecified[ICD10: J20.9] Pattie REID DO [facility] CPT-4: 97100 07/19/2017 ([id number]) OFFICE/OUTPATIENT VISIT EST Diagnosis: Rash and other nonspecific skin eruption[ICD10: R21] Pattie REID DO [facility] CPT-4: 48092 05/29/2017 ([id number]) OFFICE/OUTPATIENT VISIT EST Diagnosis: Diarrhea, unspecified[ICD10: R19.7] Diagnosis: Tinea corporis[ICD10: B35.4] Diagnosis: Tinea cruris[ICD10: B35.6] Diagnosis: Migraine, unspecified, not intractable, without status migrainosus[ICD10: G43.909] Belia REID DO [facility] CPT - 4: 70894 05/07/2017 ([id number]) OFFICE/OUTPATIENT VISIT EST Diagnosis: Stridor[ICD10: R06.1] Diagnosis: Chronic obstructive pulmonary disease with (acute) exacerbation[ICD10: J44.1] Belia REID [facility] CPT- 4: 04405 03/18/2017 ([id number]) OFFICE/OUTPATIENT VISIT EST Diagnosis: Type 2 diabetes mellitus with hyperglycemia[ICD10: E11.65] Belia REID DO [facility] CPT-4: 33672 02/27/2017 OFFICE/OUTPATIENT VISIT EST Diagnosis: Type 2 diabetes mellitus with hyperglycemia[ICD10: E11.65] Pattie REID DO [facility] CPT-4: 61668 02/22/2017 ([id number]) OFFICE/OUTPATIENT VISIT EST Diagnosis: Urinary tract infection, site not specified[ICD10: N39.0] Diagnosis: Pneumonia, unspecified organism[ICD10: J18.9] Diagnosis: Type 2 diabetes mellitus with hyperglycemia[ICD10: E11.65] Belia REID [facility] CPT-4: 56701 01/23/2017 ([id number]) OFFICE/OUTPATIENT VISIT EST Diagnosis: Type 2 diabetes mellitus with hyperglycemia[ICD10: E11.65] Diagnosis: Localized edema[ICD10: R60.0] Diagnosis: PNEUMOCOCCAL VACCINE[ICD10: Z23] Diagnosis: FLU VACCINE[ICD10: Z23] Belia FREDERICK [facility] CPT-4: 11182 12/20/2016 OFFICE/OUTPATIENT VISIT EST Diagnosis: Pain in thoracic spine[ICD10: M54.6] Diagnosis: Low back pain[ICD10: M54.5] Diagnosis: Cervicalgia[ICD10: M54.2] Diagnosis: Cough[ICD10: R05] Celeste Ferreira BELIA REID [facility] CPT-4: 65692 10/08/2016 ([id number]) OFFICE/OUTPATIENT VISIT EST Diagnosis: Primary insomnia[ICD10: F51.01] Diagnosis: Migraine, unspecified, not intractable, without status migrainosus[ICD10: G43.909] Diagnosis: Type 2 diabetes mellitus with hyperglycemia[ICD10: E11.65] Belia REID [facility] CPT-4: 73307 09/19/2016 ([id number]) OFFICE/OUTPATIENT VISIT EST Diagnosis: Migraine, unspecified, not intractable, without status migrainosus[ICD10: G43.909] Diagnosis: Generalized abdominal pain[ICD10: R10.84] Diagnosis: Cough[ICD10: R05] Belia REID DO [facility] CPT-4: 74393 08/20/2016 ([id number]) OFFICE/OUTPATIENT VISIT EST Diagnosis: Chronic obstructive pulmonary disease, unspecified[ICD10: J44.9] Diagnosis: Stridor[ICD10: R06.1] Belia REID [facility] CPT-4: 79456 06/19/2016 ([id number]) OFFICE/OUTPATIENT VISIT EST Diagnosis: Chronic obstructive pulmonary disease, unspecified[ICD10: J44.9] Diagnosis: Personal history of urinary (tract) infections[ICD10: Z87.440] Belia REID DO [facility] CPT-4: 44326 06/04/2016 ([id number]) OFFICE/OUTPATIENT VISIT EST Diagnosis: Stridor[ICD10: R06.1] Diagnosis: Chronic obstructive pulmonary disease with acute lower respiratory infection[ICD10: J44.0] Diagnosis: Other specified diseases of intestine[ICD10: K63.89] Diagnosis: Cystitis, unspecified without hematuria[ICD10: N30.90] Belia REID [facility] CPT-4: 80533 05/02/2016 ([id number]) OFFICE/OUTPATIENT VISIT EST Diagnosis: Fibromyalgia[ICD10: M79.7] Diagnosis: Urinary tract infection, site not specified[ICD10: N39.0] Belia REID DO [facility] CPT-4: 41951 04/03/2016 ([id number]) OFFICE/OUTPATIENT VISIT EST Diagnosis: Unspecified asthma, uncomplicated[ICD10: J45.909] Diagnosis: Cough[ICD10: R05] Lidia REID [facility] T-4: 33018 02/29/2016 ([id number]) OFFICE/OUTPATIENT VISIT EST Diagnosis: Migraine, unspecified, intractable, without status migrainosus[ICD10: G43.919] Diagnosis: Urinary tract infection, site not specified[ICD10: N39.0] Belia REID [facility] CPT-4: 45773 02/02/2016 ([id number]) OFFICE/OUTPATIENT VISIT EST Diagnosis: Urinary tract infection, site not specified[ICD10: N39.0] Diagnosis: Unspecified abdominal pain[ICD10: R10.9] Diagnosis: Pain in thoracic spine[ICD10: M54.6] Diagnosis: Type 2 diabetes mellitus with diabetic neuropathic arthropathy[ICD10: E11.610] Belia REID [facility] CPT-4: 92200 12/05/2015 ([id number]) OFFICE/OUTPATIENT VISIT EST Diagnosis: Chronic obstructive pulmonary disease with (acute) exacerbation[ICD10: J44.1] Diagnosis: Migraine, unspecified, not intractable, without status migrainosus[ICD10: G43.909] Lidia Jaiden CORNELLLINE Yuridia REID [facility] CPT -4: 84842 10/26/2015 ([id number]) OFFICE/OUTPATIENT VISIT EST Diagnosis: Hematuria, unspecified[ICD10: R31.9] Diagnosis: Urinary tract infection, site not specified[ICD10: N39.0] Lidia SHUQUELINE Yuridia REID 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 CPT-4: 15159 08/24/2015 ([id number]) OFFICE/OUTPATIENT VISIT EST Diagnosis: Type 2 diabetes mellitus with hyperglycemia[ICD10: E11.65] Diagnosis: Chronic obstructive pulmonary disease with acute lower respiratory infection[ICD10: J44.0] Belia REID [facility] CPT-4: 24447 07/05/2015 ([id number]) OFFICE/OUTPATIENT VISIT EST Diagnosis: Mild intermittent asthma with (acute) exacerbation[ICD10: J45.21] Diagnosis: Chronic obstructive pulmonary disease, unspecified[ICD10: J44.9] Belia Zacharyisabellaannie CORNELLBELIA BushraMayda ANUSHKA [facility] CPT-4: 27453 06/06/2015 ([id number]) OFFICE/OUTPATIENT VISIT EST Diagnosis: Chronic obstructive pulmonary disease with (acute) exacerbation[ICD10: J44.1] Lidia HSUQUELINE BushraMayda ANUSHKA [facility] CPT- 4: 49399 05/23/2015 ([id number]) OFFICE/OUTPATIENT VISIT EST Diagnosis: Type 2 diabetes mellitus with hyperglycemia[ICD10: E11.65] Diagnosis: Functional dyspepsia[ICD10: K30] Belia Anushka CORNELLLINE Yuridia REID [facility] CPT-4: 51249 05/05/2015 ([id number]) OFFICE/OUTPATIENT VISIT EST Diagnosis: Type 2 diabetes mellitus with hyperglycemia[ICD10: E11.65] Diagnosis: Glycosuria[ICD10: R81] Diagnosis: Urinary tract infection, site not specified[ICD10: N39.0] Belia REID [facility] CPT-4: 14406 03/30/2015 ([id number]) OFFICE/OUTPATIENT VISIT EST Diagnosis: Generalized abdominal pain[ICD10: R10.84] Diagnosis: Diarrhea, unspecified[ICD10: R19.7] Diagnosis: Urinary tract infection, site not specified[ICD10: N39.0] Diagnosis: Gastro-esophageal reflux disease without esophagitis[ICD10: K21.9] Belia [facility] CPT-4: 60929 02/03/2015 ([id number]) OFFICE/OUTPATIENT VISIT EST Diagnosis: Other specified noninflammatory disorders of vagina[ICD10: N89.8] Diagnosis: Follicular disorder, unspecified[ICD10: L73.9] Diagnosis: Functional dyspepsia[ICD10: K30] Diagnosis: FLU VACCINE[ICD10: Z23] Belia [facility] CPT-4: 51814 12/29/2014 ([id number]) OFFICE/OUTPATIENT VISIT EST 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] Diagnosis: RESTLESS LEGS SYNDROME[ICD9: 333.94] Diagnosis: MIGRAINE NOS/NOT INTRCBL[ICD9: 346.90] Beliahanna Humphriesisabellaannie HSUFlorencio COKER Yuridia [facility] CPT-4: 93717 09/02/2014 ([id number]) OFFICE/OUTPATIENT VISIT EST Diagnosis: Cervical radiculopathy[ICD9: 723.4] Diagnosis: Cervicalgia[ICD9: 723.1] Diagnosis: Degenerative disc disease, cervical[ICD9: 722.4] 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I[ICD9: 250.00] Beliahanna [facility] CPT-4: 11111 04/01/2014 OFFICE/OUTPATIENT VISIT EST Diagnosis: Reactive airway disease[ICD9: 493.90] Belia Zacharyisabellaannie MINAL CALVO Yuridia [facility] CPT-4: 74737 03/16/2014 ([id number]) OFFICE/OUTPATIENT VISIT EST Diagnosis: BRONCHITIS, ACUTE[ICD9: 466.0] Diagnosis: Reactive airway disease[ICD9: 493.90] Belia REID DO [facility] CPT-4: 25711 03/09/2014 OFFICE/OUTPATIENT VISIT EST Diagnosis: BRONCHITIS, ACUTE[ICD9: 466.0] Diagnosis: WHEEZING[ICD9: 786.07] Huong Peguero [facility] CPT-4: 40643 03/03/2014 OFFICE/OUTPATIENT VISIT EST Diagnosis: BRONCHITIS, ACUTE[ICD9: 466.0] Diagnosis: WHEEZING[ICD9: 786.07] Huong Peguero [facility] CPT-4: 96804 03/01/2014 ([id number]) OFFICE/OUTPATIENT VISIT EST Diagnosis: GERD[ICD9: 530.81] Diagnosis: ARTHRALGIA-MULTIPLE SITES[ICD9: 719.49] Diagnosis: LUMB/LUMBOSAC DISC DEGEN[ICD9: 722.52] Diagnosis: - I - FIBROMYALGIA[ICD9: 729.1] Belia REID [facility] CPT-4: 54798 02/09/2014 ([id number]) OFFICE/OUTPATIENT VISIT EST Diagnosis: Peptic ulcer disease[ICD9: 533.90] Diagnosis: RESTLESS LEGS SYNDROME[ICD9: 333.94] Diagnosis: Neuropathy[ICD9: 355.9] Belia FREDERICK [facility] CPT-4: 15779 12/23/2013 ([id number]) OFFICE/OUTPATIENT VISIT EST Diagnosis: URINARY TRACT INFECTION[ICD9: 599.0] Belia REID [facility] CPT-4: 15004 10/30/2013 ([id number]) OFFICE/OUTPATIENT VISIT EST Diagnosis: Flank pain[ICD9: 789.00] Belia CORNELLLINE Yuridia POOLE [facility] CPT-4: 95046 10/21/2013 ([id number]) OFFICE/OUTPATIENT VISIT EST Diagnosis: INFLAMED SEBORR KERATOS[ICD9: 702.11] Diagnosis: Brachioradial pruritus[ICD9: 698.9] Diagnosis: ASTHMA NOS[ICD9: 493.90] Belia Zacharynilson BRUNSON BushraMayda KIESHA POOLE [facility] CPT-4: 55481 10/05/2013 ([id number]) OFFICE/OUTPATIENT VISIT EST Diagnosis: HYPERTENSION[ICD9: 401.9] Diagnosis: - I - FIBROMYALGIA[ICD9: 729.1] Diagnosis: DIZZINESS/VERTIGO[ICD9: 780.4] Diagnosis: MIGRAINE NOS/NOT INTRCBL[ICD9: 346.90] Diagnosis: Diabetic peripheral neuropathy[ICD9: 250.60] Diagnosis: Flank pain[ICD9: 789.00] Belia BRUNSON BushraMayda KIESHA POOLE [facility] CPT-4: 46110 08/04/2013 ([id number]) OFFICE/OUTPATIENT VISIT EST Diagnosis: ALLERGIC RHINITIS[ICD9: 477.9] Belia Zacharyisabellaannie BELIA Bushra Mayda ANUSHKA RUDOLPH [facility] CPT-4: 67037 07/13/2013 OFFICE/OUTPATIENT VISIT EST Diagnosis: URINARY TRACT INFECTION[ICD9: 599.0] Huong ARNOLD SMayda ANUSHKA [facility] CPT-4: 98449 07/03/2013 OFFICE/OUTPATIENT VISIT EST Diagnosis: HYPERTENSION[ICD9: 401.9] Diagnosis: URINARY TRACT INFECTION[ICD9: 599.0] Diagnosis: BACKACHE[ICD9: 724.5] Diagnosis: URINARY INCONTINENCE[ICD9: 788.30] Huong SALAZAR SMayda REID [facility] CPT-4: 32223 05/27/2013 ([id number]) OFFICE/OUTPATIENT VISIT EST Diagnosis: Flank pain[ICD9: 789.00] Belia BRUNSON BushraMayda KIESHA POOLE [facility] CPT-4: 65330 05/25/2013 ([id number]) OFFICE/OUTPATIENT VISIT EST Diagnosis: B-COMPLEX DEFIC NEC[ICD9: 266.2] Belia BRUNSON BushraMayda ANUSHKA RUDOLPH [facility] CPT-4: 21933 05/04/2013 ([id number]) OFFICE/OUTPATIENT VISIT EST Diagnosis: ALLERGIC RHINITIS[ICD9: 477.9] Diagnosis: Vitamin B12 deficiency[ICD9: 266.2] Belia THOMPSON Yuridia REID [facility] CPT-4: 78348 04/17/2013 ([id number]) OFFICE/OUTPATIENT VISIT EST 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I[ICD9: 250.00] Diagnosis: URINARY TRACT INFECTION[ICD9: 599.0] Diagnosis: DIZZINESS/VERTIGO[ICD9: 780.4] Diagnosis: DIARRHEA[ICD9: 787.91] Belia BRUNSON BushraMayda RALF Peguero [facility] CPT-4: 06910 04/06/2013 ([id number]) OFFICE/OUTPATIENT VISIT EST Diagnosis: URINARY TRACT INFECTION[ICD9: 599.0] Diagnosis: URINARY RETENTION[ICD9: 788.20] Beliahanna BRUNSON BushraMayda ANUSHKA [facility] CPT-4: 03049 11/10/2012 ([id number]) OFFICE/OUTPATIENT VISIT EST Diagnosis: TACHYCARDIA[ICD9: 785.0] Diagnosis: SYNCOPE AND COLLAPSE[ICD9: 780.2] Diagnosis: CONSCIOUSNS ALTERAT NEC[ICD9: 780.09] Belia CALVO BushraMayda ANUSHKA [facility] CPT-4: 25825 09/02/2012 OFFICE/OUTPATIENT VISIT EST Diagnosis: TACHYCARDIA[ICD9: 785.0] Diagnosis: SYNCOPE AND COLLAPSE[ICD9: 780.2] Belia Paredes BushraMayda ANUSHKA [facility] CPT-4: 88673 08/04/2012 ([id number]) OFFICE/OUTPATIENT VISIT EST Diagnosis: Loss of consciousness[ICD9: 780.09] Diagnosis: Tachycardia[ICD9: 785.0] Diagnosis: MALAISE AND FATIGUE[ICD9: 780.79] Belia Paredes BushraMayda ANUSHAK [facility] CPT-4: 34983 07/21/2012 ([id number]) OFFICE/OUTPATIENT VISIT EST Diagnosis: BRONCHITIS, ACUTE[ICD9: 466.0] Diagnosis: ASTHMA NOS[ICD9: 493.90] Belia BRUNSON BushraMadya KIESHA VIRGILIO [facility] CPT-4: 65384 07/02/2012 ([id number]) OFFICE/OUTPATIENT VISIT EST Diagnosis: CEPHALGIA[ICD9: 784.0] Belia BRUNSON BushraMayda ZACHARYANT Peguero [facility] CPT-4: 81224 06/25/2012 ([id number]) OFFICE/OUTPATIENT VISIT EST Diagnosis: GERD[ICD9: 530.81] Diagnosis: DIARRHEA[ICD9: 787.91] Diagnosis: URINARY TRACT INFECTION[ICD9: 599.0] Diagnosis: ASTHMA NOS[ICD9: 493.90] Diagnosis: ALLERGIC RHINITIS[ICD9: 477.9] Belia HSUQUELINE Bushra Mayda ANUSHKA [facility] CPT-4: 19788 06/24/2012 ([id number]) OFFICE/OUTPATIENT VISIT EST Diagnosis: MIGRAINE NOS/NOT INTRCBL[ICD9: 346.90] Diagnosis: TREMOR NEC[ICD9: 333.1] Diagnosis: CHRONIC PAIN SYNDROME[ICD9: 338.4] Belia Zacharynilson SALAZAR BushraMayda LUIS [facility] CPT-4: 47127 05/20/2012 ([id number]) OFFICE/OUTPATIENT VISIT EST Diagnosis: DIZZINESS/VERTIGO[ICD9: 780.4] Diagnosis: PALPITATIONS[ICD9: 785.1] Diagnosis: TREMOR NEC[ICD9: 333.1] Diagnosis: ANXIETY STATE NOS[ICD9: 300.00] Diagnosis: POSTTRAUMATIC STRESS DISORDER[ICD9: 309.81] Belia CORNELLLINE BushraMayda LUIS [facility] CPT-4: 01386 05/08/2012 ([id number]) OFFICE/OUTPATIENT VISIT EST Diagnosis: MIGRAINE NOS/NOT INTRCBL[ICD9: 346.90] Diagnosis: FIBROMYALGIA[ICD9: 729.1] Diagnosis: SYNCOPE AND COLLAPSE[ICD9: 780.2] Diagnosis: Diabetic peripheral neuropathy[ICD9: 250.60] Belia Humphriesisabellaannie BELIA BushraMayda [facility] CPT-4: 76171 04/22/2012 OFFICE/OUTPATIENT VISIT EST Diagnosis: ROTATOR CUFF DIS NEC[ICD9: 726.19] Diagnosis: JOINT PAIN-SHLDER[ICD9: 719.41] Diagnosis: DYSPEPSIA[ICD9: 536.8] Belia Zcaharynilson BELIA BushraMayda RALF [facility] CPT-4: 34774 02/13/2012 ([id number]) OFFICE/OUTPATIENT VISIT EST Diagnosis: MIGRAINE NOS/NOT INTRCBL[ICD9: 346.90] Diagnosis: GERD[ICD9: 530.81] Diagnosis: DYSPEPSIA[ICD9: 536.8] Belia TomlinsonMayda RALF Peguero [facility] CPT-4: 44436 01/28/2012 OFFICE/OUTPATIENT VISIT EST Diagnosis: CEPHALGIA[ICD9: 784.0] Diagnosis: MIGRAINE NOS/NOT INTRCBL[ICD9: 346.90] Diagnosis: GERD[ICD9: 530.81] Diagnosis: INSOMNIA NOS[ICD9: 780.52] Belia CORNELLLINE Yuridia DOMINGUEZ [facility] CPT-4: 27340 12/26/2011 ([id number]) OFFICE/OUTPATIENT VISIT EST Diagnosis: CEPHALGIA[ICD9: 784.0] Diagnosis: MIGRAINE NOS/NOT INTRCBL[ICD9: 346.90] Diagnosis: MALAISE AND FATIGUE[ICD9: 780.79] Diagnosis: FIBROMYALGIA[ICD9: 729.1] Diagnosis: ALLERGIC RHINITIS[ICD9: 477.9] Belia Humphriesisabellaannie HSUBELIA Bushra Mayda [facility] CPT-4: 32913 11/14/2011 ([id number]) OFFICE/OUTPATIENT VISIT EST Diagnosis: MALAISE AND FATIGUE[ICD9: 780.79] Diagnosis: MUSCLE WEAKNESS-GENERAL[ICD9: 728.87] Diagnosis: MIGRAINE NOS/NOT INTRCBL[ICD9: 346.90] Diagnosis: JOINT PAIN-SHLDER[ICD9: 719.41] Belia CORNELLLINE BushraMayda [facility] CPT-4: 82967 09/12/2011 ([id number]) OFFICE/OUTPATIENT VISIT EST Diagnosis: CONCUSSION[ICD9: 850.9] Diagnosis: Ataxia[ICD9: 781.3] Diagnosis: DIZZINESS/VERTIGO[ICD9: 780.4] Belia CORNELLLINE Bushra Mayda ANUSHKA [facility] CPT-4: 16052 08/15/2011 ([id number]) OFFICE/OUTPATIENT VISIT EST Diagnosis: THROMBOPHLEBITIS[ICD9: 451.9] Diagnosis: Subacromial bursitis[ICD9: 726.19] Diagnosis: ALLERGIC RHINITIS[ICD9: 477.9] Diagnosis: Lipoma[ICD9: 214.9] Belia HSUQUECLAYTON [facility] CPT-4: 75762 08/09/2011 ([id number]) OFFICE/OUTPATIENT VISIT EST Diagnosis: THROMBOPHLEBITIS[ICD9: 451.9] Diagnosis: Arm pain[ICD9: 729.5] Diagnosis: Clostridium difficile colitis[ICD9: 008.45] Diagnosis: URINARY TRACT INFECTION[ICD9: 599.0] [facility]: 65774 07/03/2011 ([id number]) OFFICE/OUTPATIENT VISIT EST Diagnosis: ARTHRALGIA-MULTIPLE SITES[ICD9: 719.49] Diagnosis: Muscle cramp[ICD9: 729.82] Diagnosis: INSOMNIA NOS[ICD9: 780.52] [facility]: 76533 06/04/2011 OFFICE/OUTPATIENT VISIT EST Diagnosis: Headache[ICD9: 784.0] Diagnosis: Allergic rhinitis[ICD9: 477.9] [facility]: 59654 05/03/2011 OFFICE/OUTPATIENT VISIT EST Diagnosis: LUMB/LUMBOSAC DISC DEGEN[ICD9: 722.52] Diagnosis: MIGRAINE NOS/NOT INTRCBL[ICD9: 346.90] Diagnosis: CHRONIC PAIN SYNDROME[ICD9: 338.4] Diagnosis: RESTLESS LEGS SYNDROME[ICD9: 333.94] [facility]: 84226 04/05/2011 OFFICE/OUTPATIENT VISIT EST Diagnosis: MIGRAINE NOS/NOT INTRCBL[ICD9: 346.90] Diagnosis: GERD[ICD9: 530.81] Belia REID [facility] CPT-4: 91221 03/08/2011 OFFICE/OUTPATIENT VISIT EST Diagnosis: URINARY TRACT INFECTION[ICD9: 599.0] Diagnosis: Vertigo[ICD9: 780.4] Diagnosis: GERD[ICD9: 530.81] Beliahanna [facility] CPT-4: 51172 01/24/2011 OFFICE/OUTPATIENT VISIT EST Diagnosis: Hypotension[ICD9: 458.9] Diagnosis: Syncopal episodes[ICD9: 780.2] Diagnosis: MIGRAINE NOS/NOT INTRCBL[ICD9: 346.90] Diagnosis: MALAISE AND FATIGUE[ICD9: 780.79] Belia Paredes SMayda ZACHARYNDER DO [facility] CPT-4: 45003 01/02/2011 OFFICE/OUTPATIENT VISIT EST Diagnosis: Tinea cruris[ICD9: 110.3] Diagnosis: Intertrigo[ICD9: 695.89] Diagnosis: MIGRAINE NOS/NOT INTRCBL[ICD9: 346.90] Belia GaribayLUBNA SMayda ORENDER DO [facility] CPT-4: 86693 12/07/2010 OFFICE/OUTPATIENT VISIT EST Diagnosis: PALPITATIONS[ICD9: 785.1] Diagnosis: ANXIETY STATE NOS[ICD9: 300.00] Belia BRUNSON BushraMayda ZACHARYNDER DO [facility] CPT-4: 09078 11/16/2010 OFFICE/OUTPATIENT VISIT EST Diagnosis: URINARY TRACT INFECTION[ICD9: 599.0] Diagnosis: MIGRAINE NOS/NOT INTRCBL[ICD9: 346.90] Iraida GaribayLUBNA S. ORENDER DO [facility] CPT-4: 13988 11/02/2010 OFFICE/OUTPATIENT VISIT EST Diagnosis: ALLERGIC RHINITIS[ICD9: 477.9] Diagnosis: ANXIETY STATE NOS[ICD9: 300.00] Belia BRUNSON SMayda ZACHARYNDER DO [facility] CPT-4: 70847 10/18/2010 OFFICE/OUTPATIENT VISIT EST Belia Shi ZACHARY NDER DO [facility] CPT- 4: 89088 09/19/2010 OFFICE/OUTPATIENT VISIT EST Belia Shi ORE NDER DO [facility] CPT- 4: 20136 09/06/2010 ([id number]) OFFICE/OUTPATIENT VISIT EST Belia CASILLAS PhoenixLUBNA SMayda ORENDER DO [facility] CPT-4: 03317 08/10/2010 ([id number]) OFFICE/OUTPATIENT VISIT EST Belia CASILLAS PhoenixLUBNA SMayda ORENDER DO [facility] CPT-4: 97083 05/11/2010 ([id number]) OFFICE/OUTPATIENT VISIT, EST [facility]ia [facility] CPT-4: 62688 04/06/2010 ([id number]) OFFICE/OUTPATIENT VISIT, RIOS [facility] CPT-4: 20412 02/09/2010 ([id number]) OFFICE/OUTPATIENT VISIT, RIOS HSU [facility]INE [facility] CPT-4: 02530 01/05/2010 ([id number]) OFFICE/OUTPATIENT VISIT, EST Belia HSU [facility] CPT-4: 77642 12/07/2009 ([id number]) OFFICE/OUTPATIENT VISIT, EST Belia HSU [facility] CPT-4: 29364 11/08/2009 ([id number]) OFFICE/OUTPATIENT VISIT, RISO [facility] CPT-4: 42211 10/24/2009 ([id number]) OFFICE/OUTPATIENT VISIT, RIOS [facility] CPT-4: 04730 07/25/2009 ([id number]) OFFICE/OUTPATIENT VISIT, RIOS [facility] CPT-4: 18545 05/26/2009 Plan of Care Planned Activity Notes Codes Status Date Visit Diagnosis Plan: Dyspnea Discussion: has had rece nt cta. is due for updated ct without contrast due to adenopathy. will order. ICD-9 : 786.09 ICD-10 : R06.00 08/04/2019 Visit Diagnosis Plan: Left leg swelling Discussion: adren lang has had ultrasound of leg and [...] ICD-10 : K59.00 08/04/2019 Appointment: Pattie Sotomayor [address] [place], [place] [id number] ACUTE ILLNESS 08/04/2019 Visit Diagnosis Plan: Diarrhea Discussion: Restart Col estid at once daily ICD-9 : 787.91 ICD-10 : R19.7 07/06/2019 Visit Diagnosis Plan: Inspiratory stridor Discussion: Continue oxygen via NC at 2 L Continue ativan at QID Follow Up: 4 weeks ICD-9 : 786.1 ICD-10 : R06.1 07/06/2019 Appointment: Belia Reid WPtel: [phone] [facility] TELEMEDICINE 07/06/2019 Visit Diagnosis Plan: Left leg [...] R06.00 06/24/2019 Appointment: Belia Reid WPtel: [phone] [facility] TELEMEDICINE 06/24/2019 Visit Diagnosis Plan: Acute bronchitis Discussion: Cov er with levaquin Increase SVNs with albuterol to QID Has oxygen using q HS routinely and prn To ER if oxygen levels drop or worsening respiratory symptoms ICD-9 : 466.0 ICD-10 : J20.9 06/16/2019 Visit Diagnosis Plan: Colitis Discussion: Levaquin/Fla gyl [place] Diet ICD-9 : 558.9 ICD-10 : K52.9 06/16/2019 Appointment: Belia Reid: [address] [place] [address] TELEMEDICINE 06/16/2019 Patient Education: Patel Kate [phone] [email or web address] Completed 06/16/2019 Visit Diagnosis Plan: Diarrhea Discussion: Vancomycin for 10 days and notify if not improving or worsening BLAND diet Hydrate ICD-9 : 787.91 ICD-10 : R19.7 06/08/2019 Appointment: Belia Reid WPtel: [address] [place] [address] TELEMEDICINE 06/08/2019 Visit Diagnosis Plan: Acute febrile illness Discussion : Notify if worsens ICD-9 : 780.60 ICD-10 : R50.9 05/26/2019 Visit Diagnosis Plan: Colitis Discussion: Flagyl plus cipro to cover for both colitis and UTI Notify or to ER if worsening ICD-9 : 558.9 ICD-10 : K52.9 05/26/2019 Appointment: Belia Reid WPtel: [address] [place] [address] TELEMEDICINE 05/26/2019 Appointment: Pattie Sotomayor [address] RESCHEDULED 05/18/2019 Visit Diagnosis Plan: Chronic obstructive pulmonary di sease, unspecified Discussion: Recommend pulmonary rehab Patient states she never went to pulmonary rehab due to cost as well as transportation issues Finish trelagy Stop singulair Decrease hydroxyzine to 25mg po q HS Fwup [address] scan of Chest results discussed ICD-9 : 496 ICD-10 : J44.9 05/13/2019 Appointment: Belia Reid WPtel: [address] [place] [address] Hospital Follow Up 05/13/2019 Visit Diagnosis Plan: COUGH Discussion: Check CT scan of chest ICD-9 : 786.2 ICD-10 : R05 05/06/2019 Visit Diagnosis Plan: Stridor Discussion: Add Trelagy 1 p daily Add Singulair May 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 to see new precision assembler bench ICD-9 : 786.1 ICD-10 : R06.1 05/06/2019 Appointment: Belia Reid WPtel: [address] [place] [address] FOLLOW UP 05/06/2019 Patient Education: Singulair- OptimizeRX Coupon [id number] https://www.INcubes/sampleThermoCeramix/resources/getResource/61/9133455p-d24n-15z7-ph Completed 05/06/2019 Appointment: Belia Reid WPtel: [address] [place] [address] US RESCHEDULED 04/30/2019 Visit Diagnosis Plan: Muscle, [...] : R06.1 04/29/2019 Appointment: Belia Reid WPtel: [address] [place] [address] Hospital Follow Up 04/29/2019 Patient Education: Valium- OptimizeRX Coupon [id number] https://www.INcubes/sampleThermoCeramix/resources/getResource/61/d35197ug-[email or web address] Completed 04/29/2019 Visit Diagnosis Plan: Weight gain [...] ICD-10 : R10.9 04/16/2019 Appointment: Pattie Sotomayor [address] [place] [address] ACUTE ILLNESS 04/16/2019 Patient Education: cyclobenzaprine- OptimizeRX Coudelma [id number] https://www.INcubes/Adhere2Care/resources/getResource/61/cp90i2k0-3801-8459-i3 Completed 04/16/2019 Visit Diagnosis Plan: Generalized pruritus Discussion: Hydroxyzine 25mg po TID for itching and anxiety ICD-9 : 698.9 ICD-10 : L29.9 04/08/2019 Visit Diagnosis Plan: Migraine, unspecif ied, not intractable, without status migrainosus Discussion: Increase gabapentin to 600mg po BID ICD-9 : 346.90 ICD-10 : G43.909 04/08/2019 Appointment: Belia Reid WPtel: [address] [place] [address] ACUTE ILLNESS 04/08/2019 Visit Diagnosis Plan: Cervicalgia [...] : M75.52 01/22/2019 Appointment: Belia Reid WPtel: [address] [place] [address] Hospital Follow Up 01/22/2019 Visit Diagnosis Plan: Abdominal pain Discussion: urine culture sent to assess for any infection. rocephin given in office to cover for pyelonephritis. instructed to push fluids. call office with any new or worsening symptoms. ICD-9 : 789.00 ICD-10 : R10.9 01/07/2019 Appointment: Pattie Sotomayor [address] [place], [place] [address] ACUTE ILLNESS 01/07/2019 Visit Diagnosis Plan: Low back pain Discussion: Stat C T of abdomen/pelvis now ICD-9 : 724.2 ICD-10 : M54.5 12/24/2018 Appointment: Belia Reid WPtel: [address] [place] [address] FOLLOW UP 12/24/2018 Visit Diagnosis Plan: Fibromyalgia [...] : G43.909 11/20/2018 Appointment: Belia Reid WPtel: [address] [place] [address] ACUTE ILLNESS 11/20/2018 Patient Education: baclofen- OptimizeRX Coupon [id number] https://www.Adhere2Care.[employer]/samplemd/resources/getResource/61/0u7345a7-lp2o-83hk-05 Completed 11/20/2018 Visit Diagnosis Plan: Migraine, unspecif ied, intractable, without status migrainosus Discussion: toradol/phenergan given in o ffice (60 mg toradol, 12.5 mg phenergan). instructed to call if no improvement or worsening. instructed to follow up with cement tile maker since headaches are occurring more frequently to make sure vision is not the cause. ICD-9 : 346.91 ICD-10 : G43.919 11/04/2018 Visit Diagnosis Plan: Acute sinusitis, unspecified Dis cussion: zithromax prescribed to cover for sinus infection due to length of symptoms and clinincal s/s. ICD-9 : 461.9 ICD-10 : J01.90 11/04/2018 Appointment: Pattie Sotomayor [address] [place], [place] [address] ACUTE ILLNESS 11/04/2018 Appointment: Belia Reid WPtel:[phone] [address] [facility] [facility] CANCELED 09/24/2018 Visit Diagnosis Plan: Type [...] I10 09/18/2018 Appointment: Belia Reid WPtel: [address] [facility] Annual Well Visit 09/18/2018 Patient Education: gabapentin- OptimizeRX Coupon [phone] https://www.Adhere2Care.com/samplemd/resources/getResource/61/7m23lx60-9yb7-8zbj-i7 Completed 09/18/2018 Visit Diagnosis Plan: Pain in [...] ICD-10 : M54.89 09/08/2018 Appointment: Pattie Sotomayor [address] [place], [place] [address] ACUTE ILLNESS 09/08/2018 Patient Education: prednisone- OptimizeRX Coupon [phone] https://www.Adhere2Care.com/samplemd/resources/getResource/61/4f1fb52r-5944-13l9-xf Completed 09/08/2018 Visit Diagnosis Plan: Acute stress [...] ICD-10 : L29.9 08/20/2018 Appointment: Belia Reidtel: [address] [place] [address] ACUTE ILLNESS 08/20/2018 Patient Education: Lexapro- OptimizeRX Coupon [id number] Completed 08/20/2018 Patient Education: hydroxyzine HCl- OptimizeRX Coupon [id number] Completed 08/20/2018 Care Plan: MAMMOGRAM SCREENING INC : 2 6347-5 Pending 08/20/2018 Visit Diagnosis Plan: Paroxysmal atrial fibrillation D iscussion: Discuss eliquis need with cardiology at [facility] due to cost ICD-9 : 427.31 ICD-10 : I48.0 06/19/2018 Visit Diagnosis Plan: Hypotension due to drugs Discuss ion: Discussed decreasing cardizem dose due to low BP and edema but sees cardiology next week Follow Up: 1 months ICD-9 : 458.8 ICD-10 : I95.2 06/19/2018 Appointment: Belia Reid WPtel: [facility] [address] FOLLOW UP 06/19/2018 Visit Diagnosis Plan: [...] : R61 06/09/2018 Appointment: Belia Reid WPtel: [address] [place], [place] [address] FOLLOW UP 06/09/2018 Care Plan: CHEST X-RAY 2VW FRONTAL&LATL LOINC : 78785-3 Pending 05/26/2018 Visit Diagnosis Plan: Stridor Discussion: [...] : I47.1 05/21/2018 Appointment: Belia Reid WPtel: [address] [place], [place] [address] Hospital Follow Up 05/21/2018 Visit Diagnosis Plan: Cervical disc diso rder with radiculopathy, unspecified cervical region Discussion: Scheduled for surgery on 06/02 10/[address] Faulkner ICD-9 : 722.0 ICD-10 : M50.10 04/16/2018 Appointment: Belia Reid WPtel: [address] [place], [place] [address] [facility] Follow Up 04/16/2018 Visit Diagnosis Plan: [...] : G43.919 04/01/2018 Appointment: Pattie Sotomayor [address] [place] [address] ACUTE ILLNESS 04/01/2018 Appointment: Belia Reid WPtel: [address] [place] [address] 03/17/2018 Visit Diagnosis Plan: Erythema intertrigo Discussio: [...] : J44.1 03/06/2018 Appointment: Belia Reid WPtel: [address] [place] [address] Hospital Follow Up 03/06/2018 Visit Diagnosis Plan: Cervicalgia Discussion: spoke wi th dr. reid about patient. increased gabapentin to bid and started on celebrex bid. tramadrol rx written out to take prn. keep scheduled appt next week for myelogram. ICD-9 : 723.1 ICD-10 : M54.2 02/05/2018 Appointment: Pattie Sotomayor [address] [place] [address] ACUTE ILLNESS 02/05/2018 Care Plan: X-RAY EXAM NECK SPINE 4/5VWS cervical LOINC : 82076-3 Pending 01/21/2018 Visit Diagnosis Plan: Cervicalgia Discussion: [...] ICD-10 : B37.2 01/20/2018 Appointment: Pattie Sotomayor [address] [place] [address] ACUTE ILLNESS 01/20/2018 Visit Diagnosis Plan: Pain in thoracic spine Discussio n: Proceed with CT scan of thoracic spine Will likely need PT ICD-9 : 724.1 ICD-10 : M54.6 12/25/2017 Appointment: Belia Reid WPtel: [address] [place] [address] [place] FOLLOW UP 12/25/2017 Care Plan: CT THORAX W/O DYE LOINC : 473 66-0 Pending 12/25/2017 Visit Diagnosis Plan: Pain in thoracic spine Discussio n: Stretches Alternated heat/ice Topical aspercreme with lidocaine Flexeril Recheck 1 week Flu and Pneumovax given ICD-9 : 724.1 ICD-10 : M54.6 12/17/2017 Appointment: Belia Reid WPtel: [address] [place], [place] [phone] ACUTE ILLNESS 12/17/2017 Patient Education: Patient Medication [...] : J44.1 10/30/2017 Appointment: Belia Reid WPtel: [address] [place], [place] [address] FOLLOW UP 10/30/2017 Patient Education: Patient Medication Summary Completed 10/30/2017 Visit Diagnosis Plan: Chronic obstructiv e pulmonary disease with acute lower respiratory infection Discussion: Continue SVNs with albuterol q4hrs Add Trelagy 1 inhalation daily Finish steroids Increase water intake Follow Up: 1 weeks ICD-9 : 496 ICD-10 : J44.0 10/23/2017 Appointment: Belia Reid WPtel: [address] [place], [place] [phone] WORK IN 10/23/2017 Patient Education: Patient Medication Summary Completed 10/23/2017 Appointment: Belia Reid WPtel: [address] [place], [place] [phone] NO SHOW 10/16/2017 Visit Diagnosis Plan: Confusional [...] E11.65 09/17/2017 Appointment: Belia Reid WPtel: [address] [place], [place] [phone] Annual Well Visit 09/17/2017 Patient Education: Patient Medication Summary Completed 09/17/2017 Appointment: Belia Reid WPtel: [address] [place], [place] [phone] US INJECTION 08/26/2017 Patient Education: Patient Medication Summary Completed 08/26/2017 Appointment: Belia Reidtel: [address] [place], [place] [phone] US CANCELED 07/31/2017 Visit Diagnosis Plan: Encounter [...] ICD-10 : J20.9 07/19/2017 Appointment: Pattie Sotomayor [facility] [address] ACUTE ILLNESS 07/19/2017 Patient Education: Patient Medication Summary Completed 07/19/2017 Care Plan: MAMMOGRAM SCREENING LOINC : 2 6347-5 Pending 07/19/2017 Patient Education: Patient Medication Summary Completed 06/05/2017 Care Plan: LIPID PANEL LOINC : 31432-6 Pending 06/05/2017 Care Plan: A1C HPLC LOINC : 11440-3 Pending 06/05/2017 Visit Diagnosis Plan: Rash and [...] ICD-10 : R21 05/29/2017 Appointment: Pattie Sotomayor [facility] [employer] [id number] FOLLOW UP 05/29/2017 Patient Education: Patient Medication Summary Completed 05/29/2017 Visit Diagnosis Plan: Tinea corporis Discussion: Diflu can and topical nystatin Follow Up: 2 weeks ICD-9 : 110.5 ICD-10 : B35.4 05/07/2017 Visit Diagnosis Plan: Diarrhea, unspecified Discussion : Diflucan Cholestyramine Recheck 2weeks ICD-9 : 787.91 ICD-10 : R19.7 05/07/2017 Appointment: Belia Reidtel: [address] [place], [place] [phone] US FOLLOW UP 05/07/2017 Patient Education: Patient Medication Summary Completed 05/07/2017 Appointment: Belia Reidtel: [address] [place] [address] US RESCHEDULED 04/30/2017 Visit Diagnosis Plan: Chronic obstructiv e pulmonary disease with (acute) exacerbation Discussion: Finish prednisone Continue S VNS with albuterol ICD-9 : 491.21 ICD-10 : J44.1 03/18/2017 Visit Diagnosis Plan: Stridor Discussion: Increase Ati van 0.5mg po to TID routinely for next week then can go back to prn ICD-9 : 786.1 ICD-10 : R06.1 03/18/2017 Appointment: Belia Reid WPtel: [address] [place] [address] ER Follow UP 03/18/2017 Patient Education: Patient [...] ICD-10 : E11.65 02/27/2017 Appointment: Belia Reidtel: [address] [place], [place] [phone] [place] FOLLOW UP 02/27/2017 Patient Education: Patient [...] ICD-10 : E11.65 02/22/2017 Appointment: Pattie Sotomayor [address] [place], [place] [phone] ACUTE ILLNESS 02/22/2017 Patient Education: Patient [...] Visit Diagnosis Plan: Pneumonia, unspecified organism Discussion: Marai Antonia boyd then do doxycycline for 2 weeks then will plan on repeat CT scan of lungs in 3mos ICD-9 : 486 ICD-10 : J18.9 01/23/2017 Appointment: Belia Reid WPtel: [address] [place], [place] [phone] ER Follow UP 01/23/2017 Patient Education: Patient Medication Summary Completed 01/23/2017 Appointment: Pattie Sotomayor [address] [place], [place] [phone] CANCELED 01/17/2017 Appointment: Pattie Sotomayor [address] [place], [place] [phone] Annual Well Visit 01/14/2017 Visit Diagnosis Plan: Type 2 diabetes mellitus with hy perglycemia Discussion: Check CMP, HbA1C Flu shot and Prevnar 13 given Follow Up: 3 months ICD-9 : 250.02 ICD-10 : E11.65 12/20/2016 Visit Diagnosis Plan: Localized edema Discussion: Low Na diet Compression socks/Elevate feet ICD-9 : 782.3 ICD-10 : R60.0 12/20/2016 Appointment: Belia Reid WPtel: [facility] FOLLOW UP 12/20/2016 Patient Education: Patient Medication Summary Completed 12/20/2016 Patient Education: Patient Medication Summary Completed 10/10/2016 Visit Plan: Xrays of cervical, thoracic and lumbar spine at [facility] for Mobic (stop NSAIDS except Tylenol) and Flexeril UA sent for C&S Using SVN Call in 2-3 days if pain not improved or any worsening 10/08/2016 Appointment: Celeste Ferreira [facility]Ptel[facility] [address] [facility] [facility] 10/08/2016 Patient Education: Patient [...] Belia Reid WPtel: [facility] 09/18 confirmed`sl FOLLOW UP 09/19/2016 Patient Education: [...] : R10.84 08/20/2016 Appointment: Belia Reid WPtel: [address] [place], [place] [address] 08/16 confirmed~sl FOLLOW UP 08/20/2016 Patient Education: [...] J44.9 06/19/2016 Appointment: Belia Reid WPtel: [address] [place], [place] [phone] 06/18 confirmed ~ Hospital Follow Up 06/19/2016 [...] : Z87.440 06/04/2016 Appointment: Belia Reid WPtel: [address] [place] [address] 06/01 confirmed~sl FOLLOW UP 06/04/2016 Patient Education: [...] : R06.1 05/02/2016 Appointment: Belia Reid WPtel: [address] [place] [address] 05/01 confirmed [facility] Hospital Follow Up 05/02/2016 Patient Education: [...] : N39.0 04/03/2016 Appointment: Belia Reid WPtel: [address] [place] [address] 04/[facility] Follow Up 04/03/2016 Patient Education: Patient Medication Summary Completed 04/03/2016 Visit Plan: Lungs are clear Her symptoms and exam are all upper airway restriction/constriction Can try supportive care Rx as above Follow up PRN 02/29/2016 Appointment: Lidia Hwang [address] [place] [address] ACUTE ILLNESS 02/29/2016 Patient Education: Patient Medication Summary Completed 02/29/2016 Visit Plan: Toradol/Phenergan today for Migraine Change to Clindamycin to cover lactobacillus for UTI Cover with flagyl due to hx of C. Diff 02/02/2016 Appointment: Belia Reid WPtel: [address] [place] [address] 01/31 confirmed` ACUTE ILLNESS 02/02/2016 Patient Education: Patient Medication Summary Completed 02/02/2016 Visit Plan: Increase neurontin to 300mg q AM and 600mg q PM Discussed neurology re-evaluation Flu shot given Need to check on Pneumonia shot Rx written out for albuterol 01/05/2016 Appointment: Belia Reid WPtel: [address] [place], [place] [phone] 01/03 confirmed ~sl Annual Well Visit 01/05/2016 Patient Education: Patient Medication Summary Completed 01/05/2016 Visit Plan: Cipro Culture urine hydrate Flexeril refilled Alternate heat and ice for back Increase gabapentin to 300mg po BID Notify if worsens 12/05/2015 Appointment: Belia Reid WPtel: [facility] 11/30 confirmed~sl ACUTE ILLNESS 12/05/2015 Patient Education: Patient Medication Summary Completed 12/05/2015 Patient Education: Patient Medication Summary Completed 10/27/2015 Care Plan: [place] : [address]-4 Pending 10/27/2015 Care Plan: A1C HPLC LOINC : 41353-0 Pending 10/27/2015 Visit Plan: Lungs are CTA today and is f eeling improved overall Finish meds as ordered Continue inhalers and neb treatments Discussed migraine treatment options She does not feel she needs anything additional added today Refill of Januvia sent since no samples are available today 10/26/2015 Appointment: Lidia Hwang [address] Hospital Follow Up 10/26/2015 Appointment: Lidia Hwang [address] [facility]66[facility] CANCELED 10/26/2015 Patient Education: Patient Medication Summary Completed 10/26/2015 Patient Education: Januvia - 18+ - KENNETH - No [place] Completed 10/26/2015 Visit Plan: Office dip still abnormal Cu lture pending Switch to cipro - stop macrobid Push fluids - avoid caffeine Will call with culture results when available Follow up if worsening 10/05/2015 Appointment: Lidia Hwang [address] ER Follow UP 10/05/2015 Patient Education: Patient Medication Summary Completed 10/05/2015 Visit Plan: Proceed with PT for document ation of ROM and strength of all extremities Proceed with Power Mobility Device Trial of neurontin 300mg q HS--lyrica helped but patient unable to afford Recheck 1month 09/15/2015 Appointment: Belia Reid WPtel: [phone] [facility] 09/13 confirmed~sl SPECIAL 09/15/2015 Patient Education: Patient Medication Summary Completed 09/15/2015 Visit Plan: Fille out Loan Discharge Pap erwork for total and permanent disability 08/25/2015 Patient Education: Patient Medication Summary Completed 08/25/2015 Visit Plan: Discussed with Dr Anushka Haywood at CT of head Will get last date of carotid doppler from her integrative medicine physician and update if needed 08/24/2015 Appointment: [facility]wang [facility] [facility] 08/22 confirmed~sl ACUTE ILLNESS 08/24/2015 Patient Education: Patient Medication Summary Completed 08/24/2015 Patient Education: Patient Medication Summary Completed 08/24/2015 Care Plan: US EXAM OF HEAD AND NECK carotid Ultrasound LOIN C : 41996-2 Pending 08/24/2015 Visit Plan: Long discussion about diet A ccuchecks daily Check HbA1C, CMP Change requip to mirapex 07/05/2015 Appointment: Belia Reid WPtel: [phone] [facility] 07/03 confirmed ~sl FOLLOW UP 07/05/2015 Patient Education: Patient Medication Summary Completed 07/05/2015 Visit Plan: Add Breo ellipta 100 1 p BID Continue SVNs with duoneb QID 06/06/2015 Appointment: Belia Reid WPtel: [address] [place], [place] [phone] Patient is calling for a ride, then [...] not improving 05/23/2015 Appointment: Huong Osborne WPtel: [address] [place] [address] ACUTE ILLNESS 05/23/2015 Appointment: Lidia Hwang [address] [place] [address] ER Follow UP 05/23/2015 Patient Education: Patient Medication Summary Completed 05/23/2015 Visit Plan: Check pancreatic enzymes and US of pancreas as patient can't understand why she has diabetes since has no family history Discussed weight, diet, exercise all play an important role in diabetes and are risk factors as well Continue Januvia and accuchecks daily 05/05/2015 Appointment: Belia Reid WPtel: [address] [place] [address] US FOLLOW UP 05/05/2015 Patient Education: Patient Medication Summary Completed 05/05/2015 Care Plan: US EXAM ABDOM COMPLETE LOINC : 71498-3 Ordered 05/05/2015 Visit Plan: Start Januvia 100mg daily [place] with diflucan and culture urine Accuchecks daily alternating times Recheck 6weeks 03/30/2015 Appointment: Belia Reid WPtel: [address] [place] [address] 03/29 confirmed~lb FOLLOW UP 03/30/2015 Patient Education: Patient Medication Summary Completed 03/30/2015 Appointment: Belia Reid WPtel: [address] [place], [place] [phone] [place] 03/01 needs reschedule due to payment and insurance ~sl FOLLOW UP 03/02/2015 Visit Plan: Patient was just in ER last night so has not filled scripts yet Start Carafate and Flagyl and Cipro Add Hyophen 1 po BID Recheck 1mo 02/03/2015 Appointment: Belia Reid WPtel: [address] [place], [place] [phone] 02/02lm ~sl...02/03/15 appt confirmed cn ACUTE I LLNESS 02/03/2015 Patient Education: Patient Medication Summary Completed 02/03/2015 Visit Plan: Warm soaks to vaginal area K elex and Diflucan and observe Zofran to use prn 12/29/2014 Appointment: Belia Reid WPtel: [address] [place] [address] 12/28 Confirmed ~ ACUTE ILLNESS 12/29/2014 Patient Education: Patient Medication Summary Completed 12/29/2014 Appointment: Huong Osborne WPtel: [address] [place], [place] [phone] FOLLOW UP 09/24/2014 Appointment: Belia Reid WPtel: [address] [place] [address] 09/15 confirmed - FOLLOW UP 09/16/2014 Visit Plan: Increase requip to 2mg po BI D Increase lyrica to 225mg total a day by adding an extra 75mg in AM Recheck in 2weeks Continue to patch left eye while sleeping 09/02/2014 Appointment: Belia Reid WPtel: [address] [place], [place] [address] 09/01 appt confirmed [facility] Follow Up 09/02 Patient Education: Patient Medication Summary Completed 09/02/2014 Visit Plan: To [facility] for observat ion to R/O CVA 08/25/2014 Appointment: Huong Osborne WPtel: [address] [place], [place] [phone] ACUTE ILLNESS 08/25/2014 Patient Education: Patient Medication Summary Completed 08/25/2014 Referral: Aaron Jonas WPtel: [facility] [address] [place] location Initiated 04/26/2014 Referral: Brian Srinivasan [facility]Ptel[facility] Ref[facility] Initiated 04/20/2014 Appointment: Belia Reid WPtel: [address] [place], [place] [address] ER Follow UP 04/01/2014 Patient Education: Patient Medication Summary Completed 04/01/2014 Care Plan: MYELOGRAPHY NECK SPINE LOINC : 09476-3 Ordered 04/01/2014 Visit Plan: Continue Symbicort 160 at 2p BID Continue SVNs with duoneb at least QID Finish Levaquin Recheck 1mo on lyrica 03/16/2014 Appointment: Belia Reid WPtel: [address] [place], [place] [phone] 03/15 voicemail FOLLOW UP 03/16/2014 Patient Education: Patient Medication Summary Completed 03/16/2014 Visit Plan: Restart SVNs with duoneb QID Repeat prednisone Levaquin Continue symbicort Keep lyrica at same dose Recheck 1week 03/09/2014 Appointment: Belia Reid WPtel: [address] [place], [place] [phone] FOLLOW UP 03/09/2014 Patient Education: Patient Medication Summary Completed 03/09/2014 Appointment: Belia Reid WPtel: [address] [place], [place] [phone] 03/03 showed up 15 minutes late for appt -- put her on Huong's side for 10:45am FORGIVEN PER DR FOLLOW UP 03/03/2014 Appointment: Huong Osborne WPtel: [address] [place], [place] [address] [place] FOLLOW UP 03/03/2014 Patient Education: Patient Medication Summary Completed 03/03/2014 Appointment: Huong Osborne WPtel: [address] [place], [place] [phone] ER Follow UP 03/01/2014 Patient Education: Patient Medication Summary Completed 03/01/2014 Visit Plan: Add carafate for this next m onth Increase lyrica to 150mg q HS 02/09/2014 Appointment: Belia Reid WPtel: [address] [place], [place] [phone] Hospital Follow Up 02/09/2014 Patient Education: Patient Medication Summary Completed 02/09/2014 Visit Plan: Increase omeprazole back to 40mg po BID Use requip in AM and add lyrica 75mg q HS Recheck 1mo 12/23/2013 Appointment: Belia Reid WPtel: [address] [place], [place] [phone] FOLLOW UP 12/23/2013 Patient Education: Patient Medication Summary Completed 12/23/2013 Patient Education: Patient Medication Summary Completed 12/04/2013 Appointment: Belia Reid WPtel: [address] [place], [place] [phone] UA 10/30/2013 Patient Education: Patient Medication Summary Completed 10/30/2013 Appointment: Belia Reid WPtel: [address] [place], [place] [phone] UA 10/21/2013 Patient Education: Patient Medication Summary Completed 10/21/2013 Visit Plan: Cryotherapy as above TAC and hydroxyzine to use prn to itching spots and itching SKs Add Advair HFA 115/21 1 p BID 10/05/2013 Appointment: Belia Reid WPtel: [address] [place], [place] [phone] 10/01 pt called and confirmed ACUTE ILLNESS Patient Education: Patient Medication Summary Completed 10/05/2013 Appointment: Belia Reid WPtel: [address] [place], [place] [phone] will pay copay and part of past balance FOLLOW U P 08/04/2013 Patient Education: Patient Medication Summary Completed 08/04/2013 Appointment: Belia Reid WPtel: [address] [place], [place] [phone] US INJECTION 07/13/2013 Patient Education: Patient Medication Summary Completed 07/13/2013 Appointment: Huong Osborne WPtel: [address] [place], [place] [phone] ACUTE ILLNESS 07/03/2013 Patient Education: Patient Medication Summary Completed 07/03/2013 Visit Plan: Cipro and culture urine 05/27/2013 Appointment: Huong Osborne WPtel: [address] [place], [place] [id number] 05/26 confirmed appt and notified that balance and copy operator y is due at appt time FOLLOW UP 05/27/2013 Patient Education: Patient Medication Summary Completed 05/27/2013 Appointment: Belia Reid WPtel: [address] [place], [place] [phone] [place] UA 05/25/2013 Patient Education: Patient Medication Summary Completed 05/25/2013 Appointment: Belia Reid WPtel: [address] [place], [place] [phone] [place] INJECTION 05/04/2013 Patient Education: Patient Medication Summary Completed 05/04/2013 Appointment: Belia Reid WPtel: [address] [place], [place] [phone] [place] INJECTION 04/17/2013 Patient Education: Patient Medication Summary Completed 04/17/2013 Appointment: Belia Reid WPtel: [address] [place], [place] [phone] [place] INJECTION 04/15/2013 Appointment: Belia Reid WPtel: [address] [place], [place] [phone] 04/02 FOLLOW UP 04/06/2013 Patient Education: Patient Medication Summary Completed 04/06/2013 Visit Plan: Obtain lab results including UA from [facility] 11/10/2012 Appointment: Belia Reid WPtel: [address] [place], [place] [phone] [place] ER Follow UP 11/10/2012 Patient Education: Patient Medication Summary Completed 11/10/2012 Appointment: Belia Reid WPtel: [address] [place] [address] 10/30/12 patient canceled appt due to fin ances. Offered to work something out, patient declined-LB FOLLOW UP 11/05/2012 Visit Plan: Continue Bystolic at current dose Pt has fwup with Neurology on September 16 09/02/2012 Appointment: Belia Reid WPtel: [address] [place] [address] FOLLOW UP 09/02/2012 Patient Education: Patient Medication Summary Completed 09/02/2012 Visit Plan: Continue bystolic at 5mg chris ly Sees Neurology tomorrow Use oxygen at bedtime 08/04/2012 Appointment: Belia Reidtel: [address] [place] [address] FOLLOW UP 08/04/2012 Patient Education: Patient Medication Summary Completed 08/04/2012 Appointment: Belia Reid WPtel: [address] [place] [address] Hospital fwup for 07/21/12. merged appointments FOLLOW UP 07/24/2012 Visit Plan: Start Bystolic 5mg daily for tachycardia Fwup with neurology for further workup Overnight O2 sat 07/21/2012 Appointment: Belia Reidtel: [address] [place] [address] Hospital Follow Up 07/21/2012 Patient Education: Patient Medication Summary Completed 07/21/2012 Visit Plan: SVN with Albuterol QID Add A velox 400mg daily Notify if worsens or persists 07/02/2012 Appointment: Belia Reid WPtel: [address] [place] [address] ACUTE ILLNESS 07/02/2012 Patient Education: Patient Medication Summary Completed 07/02/2012 Appointment: Belia Reidtel: [address] [place] [address] INJECTION 06/25/2012 Patient Education: Patient Medication Summary Completed 06/25/2012 Appointment: [facility] [id number] [id number] FO[facility] UP 06/24/2012 Patient Education: Patient Medication Summary Completed 06/24/2012 Appointment: Belia Reid WPtel: [address] [place], [place] [id number] 05/19 left message FOLLOW UP 05/20/2012 Patient [...] po TID 05/08/2012 Appointment: Belia Reid WPtel[facility] [facility] 05/08/2012 Patient Education: Patient Medication Summary Completed 05/08/2012 Visit Plan: Continue current meds Contin ue lower dose on pain meds and Diazepam Still waiting on paperwork for botox for Migraines Will restart Neurontin at 600mg po q HS Pt going to stop Depakote due to can't afford 04/22/2012 Appointment: Belia Reid WPtel: [address] [place], [place] [id number] 04/21 Hospital Follow Up 04/22/2012 Patient Education: Patient Medication Summary Completed 04/22/2012 Visit Plan: Injection to shoulder as abo ve Continue current meds Has appointment with neurology on HAs in 02/13/2012 Appointment: Belia Reid WPtel: [address] [place], [place] [id number] Pt does not have $10 copay at [facility] t time - will bring it in next week. Kianna iqbal'ed this. - [place] FOLLOW UP 02/13/2012 Patient Education: Patient Medication Summary Completed 02/13/2012 Visit Plan: Proceed with headache specia list Change nexium to Protonix Phenergan to use prn Sumatriptan to use prn Pt still on Inderal 01/28/2012 Appointment: Belia Reid WPtel: [address] [place] [address] ER Follow UP 01/28/2012 Patient Education: Patient [...] for sleep 12/26/2011 Appointment: Belia Reid WPtel: [address] [place] [address] 12/24- appt. confirmed FOLLOW UP 2 Patient Education: Patient Medication Summary Completed 12/26/2011 Appointment: Belia Reid WPtel: [address] [place] [address] [place] FOLLOW UP 11/14/2011 Patient Education: Patient Medication Summary Completed 11/14/2011 Appointment: Belia Reidtel: [address] [place] [address] [place] FOLLOW UP 09/12/2011 Patient Education: Patient Medication Summary Completed 09/12/2011 Visit Plan: Supportive care Decrease Liseth catalino to 50mg q HS Decrease AM dose of Valium to 5mg q HS Use Endocet sparingly 08/15/2011 Appointment: Belia Reid WPtel: [address] [place] [address] ER Follow UP 08/15/2011 Patient Education: Patient Medication Summary Completed 08/15/2011 Appointment: Belia Reid WPtel: [address] [place] [address] [place] Spoke directly to patient yesterday and confirmed the appoin tment. cn ACUTE ILLNESS 08/09/2011 Patient Education: Patient Medication Summary Completed 08/09/2011 Appointment: Belia Reid WPtel: [address] [place] [address] Hospital Follow Up 07/03/2011 Patient Education: Patient Medication Summary Completed 07/03/2011 Appointment: Belia Reid WPtel: [address] [place] [address] FOLLOW UP 06/04/2011 Patient Education: Patient Medication Summary Completed 06/04/2011 Visit Plan: Pt. wants "allergy shot" but in fact wants steroid shot. Will take a break from [facility] and try Singulair for 2 weeks. 05/03/2011 Appointment: Iraida Jones WPtel: [address] [place] [address] ACUTE ILLNESS 05/03/2011 Patient Education: Patient Medication Summary Completed 05/03/2011 Visit Plan: Neurontin 400mg q HS for 1we ek then 800mg q HS Decrease requip to 1mg q HS for 2wks then stop Fwup 2mos 04/05/2011 Appointment: Belia Reid WPtel: [address] [place] [address] FOLLOW UP 04/05/2011 Patient Education: Patient Medication Summary Completed 04/05/2011 Visit Plan: Trial of neurontin in 2wks C ontinue current meds for stomach Pt has procedure with Dr. Ortiz next week for stone removal 03/08/2011 Appointment: Belia Reid WPtel: [address] [place] [address] Hospital Follow Up 03/08/2011 Patient Education: Patient Medication Summary Completed 03/08/2011 Appointment: Belia Reid WPtel: [address] [place] [address] FOLLOW UP 02/19/2011 Visit Plan: reports increased [...] with Flagyl 01/24/2011 Appointment: Iraida Jones WPtel: [address] [place] [address] ACUTE ILLNESS 01/24/2011 Patient Education: Patient Medication Summary Completed 01/24/2011 Appointment: Belia Reid WPtel: [address] [place] [address] [place] FOLLOW UP 01/02/2011 Patient Education: Patient Medication Summary Completed 01/02/2011 Appointment: Belia Reid WPtel: [address] [place] [address] FOLLOW UP 12/12/2010 Appointment: Belia Reid WPtel: [address] [place] [address] ACUTE ILLNESS 12/07/2010 Patient Education: Patient Medication Summary Completed 12/07/2010 Visit Plan: Increase Buspar to 10mg po B ID 11/16/2010 Appointment: Belia Reid WPtel: [address] [place] [address] FOLLOW UP 11/16/2010 Patient Education: Patient Medication Summary Completed 11/16/2010 Appointment: Iraida Jones WPtel: [address] [place] [address] ER Follow UP 11/02/2010 Patient Education: Patient Medication Summary Completed 11/02/2010 Visit Plan: Depo-Medrol/Kenalog given fo r allergies Add BuSpar for anxiety Oxycodone one p.o. q.i.d. for number 120 refilled 10/18/2010 Appointment: Belia Reid WPtel: [address] [place] [address] [place] FOLLOW UP 10/18/2010 Patient Education: Patient Medication Summary Completed 10/18/2010 Visit Plan: Continue current meds Discus sed epidurals for back vs PT--will proceed with epidurals to thoracolumbar region to see if helps with pain 09/19/2010 Appointment: Belia Reid WPtel: [address] [place], [place] [phone] FOLLOW UP 09/19/2010 Patient Education: Patient Medication Summary Completed 09/19/2010 Visit Plan: DC MS contin Check CT scan t horacic spine Fwup pending above results 09/06/2010 Appointment: Belia Reid WPtel: [address] [place], [place] [phone] FOLLOW UP 09/06/2010 Patient Education: Patient Medication Summary Completed 09/06/2010 Visit Plan: Continue current meds Restar t MS contin 15mg po BID and use oxycodone prn Use daily senokot-s 2 po BID 08/10/2010 Appointment: Belia Reid WPtel: [address] [place], [place] [phone] FOLLOW UP 08/10/2010 Patient Education: Patient Medication Summary Completed 08/10/2010 Visit Plan: Depomedrol/Kenalog given Pt sees ENT later this month Cont current meds Mammo scheduled 05/11/2010 Appointment: Belia Reid WPtel: [address] [place], [place] [phone] FOLLOW UP 05/11/2010 Patient Education: Patient Medication Summary Completed 05/11/2010 Appointment: Belia Reid WPtel: [address] [place], [place] [phone] UA 05/04/2010 Patient Education: Patient Medication Summary Completed 05/04/2010 Visit Plan: Pt sent to lab for UA 04/28/2010 Appointment: Belia Reid WPtel: [address] [place], [place] [phone] UA 04/28/2010 Patient Education: Patient Medication Summary Completed 04/28/2010 Visit Plan: Check CT angiogram of chest Restart Advair Use proair prn Cont current meds Fwup with Card as schedulec 04/06/2010 Appointment: Belia Reidtel: [address] [place] [address] Follow Up 04/06/2010 Patient Education: Patient Medication Summary Completed 04/06/2010 Visit Plan: Paperwork filled out for pow erchair Depomedrol/kenalog given Pt sees ENT in 2wks to assess nasal obstruction problems 02/09/2010 Appointment: Belia Reid WPtel: [address] [place] [address] ESTABLISHED PATIENT 02/09/2010 Patient Education: Patient Medication Summary Completed 02/09/2010 Visit Plan: Change Elavil to Trazadone 1 50mg q HS Diflucan and nystatin for tinea cruris 01/05/2010 Appointment: Belia Reidtel: [address] [place] [address] FOLLOW UP 01/05/2010 Patient Education: Patient Medication Summary Completed 01/05/2010 Appointment: Belia Reidtel: [address] [place] [address] FOLLOW UP 12/07/2009 Patient Education: Patient Medication Summary Completed 12/07/2009 Appointment: Belia Reidtel: [address] [place] [address] FOLLOW UP 11/22/2009 Visit Plan: Cont current meds and await MRI results from Dr. Meadows's office and his final recommendations Will need to follow-up at later date on deviated septum 11/08/2009 Appointment: Belia Reidtel: [address] [place] [address] FOLLOW UP 11/08/2009 Patient Education: Patient Medication Summary Completed 11/08/2009 Visit Plan: Cont PT/OT See Neurosurgery Cont Tortoise shell brace 10/24/2009 Appointment: Belia Reidtel: [address] [place], [place] [phone] FOLLOW UP 10/24/2009 Patient Education: Patient Medication Summary Completed 10/24/2009 Appointment: Belia Reid WPtel: [address] [place], [place] [phone] Hospital Follow Up 10/17/2009 Appointment: Belia Reid WPtel: [address] [place], [place] [phone] ACUTE ILLNESS 07/25/2009 Patient Education: Patient Medication Summary Completed 07/25/2009 Appointment: Belia Reid WPtel: [address] [place] [address] FOLLOW UP 05/26/2009 Patient Education: Patient Medication Summary Completed 05/26/2009 Referral: Chino Balderas WPtel: [address] [place], [place] [phone] Referral Initiated Referral: Merry Vale WPtel: [facility] [id number] [place] [address] Vale will review referral and book appointment Completed Referral: Francisco Javier Yoder WPtel: [address] [id number] Patient needs EGD insurance will not inc rease a medication unless this procedure results show a need Completed Referral: Francisco Javier Yoder WPtel: [address] [id number] [place] Referral Historical Reference Referral: Francisco Javier Yoder WPtel: [address] [place] [address] [place] Referral Initiated Instructions Comment . Xrays [...] last date of carotid doppler from her integrative medicine physician and update if needed . Long discussion [...] from "generic Zyrtec they are getting from [email or web address]" and try Singulair for 2 weeks. . [...]
--- OUTSIDE RECORDS SUMMARY | 2019-08-27 08:07 | XMS REPORT | CCD ---
Author Author Diana Reid D.O. Organization [facility] Address [address] [place] [address] Phone Care Team Providers Care Storekeeper Helper Name Role Phone [facility]ia Reid D.O., PP Unavailable CCM Unavailable Summary Purpose Interface Exchange Insurance Providers Payer name Policy type / Coverage type Covered constitution party ID Effective Begin Date Effective End Date [employer] MEDICARE Medicare Part B [id number] 2019 Unknown Family History Family History data not found Social History Social History Element Codes Description Effective Dates Tobacco history SNOMED CT: 915711848 Nonsmoker 09/13/2010 Allergies, Adverse Reactions, Alerts Substance Reaction Codes Entered Date Inactivated Date Status Eggs reaction [id number] 09/15/2015 No Inactive Date Active _ Unknown [...] Fill Instructions Ativan 0.5 mg tablet RxNorm: 718346 1 Tablet(s) Oral th ree times a day for anxiety/shortness of air/stridor 07/29/2019 08/27/2019 Active Singulair 10 mg tablet RxNorm: 801557 1 Tablet(s) Oral QPM 07/29/19 20 01/25/2020 Active diltiazem CD 240 mg capsule,extended release 24 hr RxNorm: 8 29019 1 Capsule(s) Oral QD 07/15/2019 01/10/2020 Active metoprolol tartrate 50 mg tablet RxNorm: 637715 1 Table t(s) Oral two times a day 07/06/2019 No Stop Date Active Novolin N NPH U-100 Insulin isophane 100 unit/mL subcu taneous susp RxNorm: 507004 25 Unit(s) Subcutaneous two times a day 07/06/2019 07/06/2019 I nactive Colestid 1 gram tablet RxNorm: 0986173 1 Tablet(s) Oral two times a day for diarrhea 07/06/2019 09/04/2019 Active pramipexole 1 mg tablet RxNorm: 024306 1 Tablet(s) Oral QPM FOR RESTLESS LEGS (REPLACES REQUIP) 06/25/2019 06/19/2020 Active hydroxyzine HCl 25 mg tablet RxNorm: 500513 1 Tablet(s) Oral QPM for itching/aniety 06/25/2019 09/23/2019 Active Ativan 0.5 mg tablet RxNorm: 427266 1 Tablet(s) Oral th ree times a day for anxiety/shortness of air/stridor 06/25/2019 07/25/2019 Inactive Levaquin 500 mg tablet RxNorm: 988370 1 Tablet(s) Oral QD 06/16/2019 06/23/2019 Inactive Flagyl 500 mg tablet RxNorm: 332526 1 Tablet(s) Oral three time s a day 06/16/2019 06/23/2019 Inactive Vancocin 125 mg capsule RxNorm: 694283 1 Capsule(s) Oral four t imes a day 06/08/2019 06/18/2019 Inactive omeprazole 40 mg capsule,delayed release RxNorm: 275872 1 Capsule(s) Oral two times a day 05/26/2019 11/21/2019 Active Flagyl 500 mg tablet RxNorm: 399837 1 Tablet(s) Oral three time s a day 05/26/2019 06/05/2019 Inactive diltiazem CD 240 mg capsule,extended release 24 hr RxNorm: 8 35933 1 Capsule(s) Oral QD 05/26/2019 07/14/2019 Inactive Cipro 250 mg tablet RxNorm: 154158 1 Tablet(s) Oral two times a day 05/26/2019 06/02/2019 Inactive hydroxyzine HCl 25 mg tablet RxNorm: 685748 1 Tablet(s) Oral QPM for itching/aniety 05/21/2019 06/24/2019 Inactive metoprolol tartrate 25 mg tablet RxNorm: 570632 1 Table t(s) Oral two times a day 05/21/2019 07/05/2019 Inactive hydroxyzine HCl 25 mg tablet RxNorm: 600773 1 Tablet(s) Oral QPM for itching/aniety 05/13/2019 05/20/2019 Inactive Singulair 10 mg tablet RxNorm: 685054 1 Tablet(s) Oral QPM 05/06/1905/12/2019 Inactive gabapentin 600 mg tablet RxNorm: 659632 1 Tablet(s) Oral QD 020 06/05/2019 Inactive Valium 5 mg tablet RxNorm: 024001 1 Tablet(s) Oral QPM for stri joao/muscle spasm 04/29/2019 06/24/2019 Inactive baclofen 10 mg tablet RxNorm: 422656 1 Tablet(s) Oral QPM for s pasm/neck pain 04/24/2019 05/23/2019 Inactive baclofen 10 mg tablet RxNorm: 052162 1 Tablet(s) Oral QPM for s pasm/neck pain 04/24/2019 04/23/2019 Inactive Novolin N NPH U-100 Insulin isophane 100 unit/mL subcu taneous susp RxNorm: 221261 23 Unit(s) Subcutaneous two times a day 04/20/2019 07/05/2019 I nactive cyclobenzaprine 5 mg tablet RxNorm: 266163 1 Tablet(s) Oral three times a day as needed 04/16/2019 04/23/2019 Inactive hydroxyzine HCl 25 mg tablet RxNorm: 777038 1 Tablet(s) Oral three times a day for itching/aniety 04/08/2019 05/12/2019 Inactive gabapentin 600 mg tablet RxNorm: 070326 1 Tablet(s) Oral two ti mes a day 04/08/2019 05/05/2019 Inactive gabapentin 600 mg tablet RxNorm: 760277 1 Tablet(s) Oral two ti mes a day 04/08/2019 04/07/2019 Inactive Novolin N NPH U-100 Insulin isophane 100 unit/mL subcu taneous susp RxNorm: 752659 10 Unit(s) Subcutaneous two times a day 03/03/2019 04/19/2019 I nactive gabapentin 300 mg capsule RxNorm: 696587 1 Capsule(s) O ral every night at bedtime for neuropathy 02/26/2019 04/07/2019 Inactive gabapentin 300 mg capsule RxNorm: 321667 1 Capsule(s) O ral every night at bedtime for neuropathy 02/20/2019 02/25/2019 Inactive buspirone 5 mg tablet RxNorm: 611531 TAKE 1 TABLET THREE TIMES MILDRED Y 02/12/2019 05/12/2019 Inactive pramipexole 1 mg tablet RxNorm: 099017 1 Tablet(s) Oral QPM FOR RESTLESS LEGS (REPLACES REQUIP) 02/12/2019 06/24/2019 Inactive Lexapro 10 mg tablet RxNorm: 008030 TAKE 1 TABLET EVERY DAY FOR MOO D 01/31/2019 No Stop Date Active Ativan 0.5 mg tablet RxNorm: 993987 TAKE 1 TABLET BY MO UT THREE TIMES DAILY NEEDED FOR ANXIETY 01/26/2019 04/28/2019 Inactive Ativan 0.5 mg tablet RxNorm: 194948 TAKE 1 TABLET BY MO UT THREE TIMES DAILY NEEDED FOR ANXIETY 01/05/2019 01/05/2019 Inactive Levaquin 500 mg tablet RxNorm: 025064 1 Tablet(s) Oral QD 12/25/2018 12/24/2018 Inactive Levaquin 500 mg tablet RxNorm: 902894 1 Tablet(s) Oral QD 12/25/2018 01/04/2019 Inactive baclofen 10 mg tablet RxNorm: 168198 1 Tablet(s) Oral three maico es a day 11/20/2018 01/19/2019 Inactive Ativan 0.5 mg tablet RxNorm: 270791 TAKE 1 TABLET BY MO UT THREE TIMES DAILY NEEDED FOR ANXIETY 11/20/2018 01/04/2019 Inactive gabapentin 300 mg capsule RxNorm: 742020 1 Capsule(s) O ral every night at bedtime for neuropathy 11/20/2018 12/20/2018 Inactive Lexapro 10 mg tablet RxNorm: 444988 1 Tablet(s) PO QD for mood 07/201801/30/2019 Inactive Zithromax Z-Lj 250 mg tablet RxNorm: 441310 Tablet(s) PO take as directed 11/04/2018 11/19/2018 Inactive Insulin Syringe 1 mL 29 gauge x 1/2" RxNorm: 2 s yringes daily with insulin Dx: E11.65 10/08/2018 No Stop Date Active gabapentin 300 mg capsule RxNorm: 358917 1 Capsule(s) PO QHS fo r neuropathy 09/18/2018 10/17/2018 Inactive cyclobenzaprine 5 mg tablet RxNorm: 282772 1 Tablet(s) PO TID a s needed 09/09/2018 09/08/2018 Inactive cyclobenzaprine 5 mg tablet RxNorm: 095165 1 Tablet(s) PO TID a s needed 09/09/2018 10/08/2018 Inactive prednisone 20 mg tablet RxNorm: 397203 1 Tablet(s) PO QD 09/08/2018 0 09/12/2018 Inactive Lantus Solostar U-100 Insulin 100 unit/mL (3 mL) subcu taneous pen RxNorm: 931319 55 Unit(s) SQ QAM 08/28/2018 11/03/2018 Inactive hydroxyzine HCl 25 mg tablet RxNorm: 729851 1 Tablet(s) PO QHS for itching 08/20/2018 05/12/2019 Inactive Lexapro 10 mg tablet RxNorm: 434059 1 Tablet(s) PO QD for mood 08/0210/18/2018 Inactive sumatriptan 100 mg tablet RxNorm: 075870 1 Tablet(s) PO at headache onset. May repeat 1 in two hours if headache remains. Max of 2 per 24 hours 04/02/2018 05/20/2018 Inactive Diflucan 150 mg tablet RxNorm: 423483 1 Tablet(s) PO QD 03/18/2018 Inactive Diflucan 150 mg tablet RxNorm: 194815 1 Tablet(s) PO QD 03/18/2018 Inactive Flagyl 500 mg tablet RxNorm: 640753 1 Tablet(s) PO TID 03/17/2018 Inactive Levaquin 500 mg tablet RxNorm: 277988 1 Tablet(s) PO QD 03/17/2018 Inactive Levaquin 500 mg tablet RxNorm: 379212 1 Tablet(s) PO QD 03/17/2018 Inactive Flagyl 500 mg tablet RxNorm: 332934 1 Tablet(s) PO TID 03/17/2018 Inactive ketoconazole 200 mg tablet RxNorm: 952643 1 Tablet(s) PO QD 019 03/19/2018 Inactive Celebrex 200 mg capsule RxNorm: 599848 1 Capsule(s) PO BID 02/06/20 18 05/20/2018 Inactive tramadol 50 mg tablet RxNorm: 079521 1 Tablet(s) PO TID as needed 1 04/08/2017 05/20/2018 Inactive gabapentin 300 mg capsule RxNorm: 398460 1 Capsule(s) PO BID 201705/20/2018 Inactive Diflucan 150 mg tablet RxNorm: 174349 1 Tablet(s) PO QD 01/20/2018 Inactive pramipexole 1 mg tablet RxNorm: 892354 1 Tablet(s) PO Q PM FOR RESTLESS LEGS (REPLACES REQUIP) 01/08/2018 02/11/2019 Inactive cyclobenzaprine 10 mg tablet RxNorm: 170477 1 Tablet(s) PO TID as needed for muscle spasm 12/17/2017 05/20/2018 Inactive pramipexole 1 mg tablet RxNorm: 834719 TAKE 1 TABLET BY MOUTH ONCE DAILY IN THE EVENING FOR RESTLESS LEGS (REPLACES REQUIP) 12/04/2017 01/05/2018 Inac tive Amaryl 4 mg tablet RxNorm: 159464 1 Tablet(s) PO BID replaces 2mg 0 11/05/2017 12/16/2017 Inactive Singulair 10 mg tablet RxNorm: 272814 1 Tablet(s) PO QHS for al lergies/lungs 10/30/2017 12/16/2017 Inactive Diflucan 100 mg tablet RxNorm: 223439 1 Tablet(s) PO QD 10/23/2017 Inactive Ativan 0.5 mg tablet RxNorm: 497106 TAKE 1 TABLET BY MOUTH THRE E TIMES DAILY 08/30/2017 11/20/2018 Inactive buspirone 5 mg tablet RxNorm: 159555 1 Tablet(s) PO TID 07/11/2017 Inactive propranolol 60 mg tablet RxNorm: 592200 1 Tablet(s) PO BID repl aces 40mg dose 06/26/2017 12/16/2017 Inactive Amaryl 4 mg tablet RxNorm: 726000 1 Tablet(s) PO BID replaces 2mg 0 06/12/2017 11/05/2017 Inactive omeprazole 40 mg capsule,delayed release RxNorm: 759052 1 Capsule(s) PO BID TAKE ONE CAPSULE BY MOUTH TWICE DAILY 05/30/2017 11/25/2017 Inactive pramipexole 1 mg tablet RxNorm: 072629 1 Tablet(s) PO Q PM for restless legs--replaces requip 05/30/2017 11/25/2017 Inactive amitriptyline 50 mg tablet RxNorm: 233670 1 Tablet(s) PO QHS 201709/16/2017 Inactive Diflucan 100 mg tablet RxNorm: 499359 1 Tablet(s) PO BID 05/07/2017 0 05/20/2017 Inactive nystatin (bulk) 100 million unit powder RxNorm: Application TO P BID 05/07/2017 05/20/2018 Inactive cholestyramine (with sugar) 4 gram oral powder RxNorm: 549388 1 Unit Dose PO QD 05/07/2017 01/20/2018 Inactive Ativan 0.5 mg tablet RxNorm: 580393 TAKE ONE TABLET BY MOUTH TH REE TIMES DAILY 05/01/2017 09/02/2017 Inactive Trulicity 1.5 mg/0.5 mL subcutaneous pen injector RxNorm: 15 36409 1 Unit Dose SQ WEEKLY 02/22/2017 03/23/2017 Inactive doxycycline hyclate 100 mg capsule RxNorm: 0142231 1 Capsule(s) PO BID 01/23/2017 02/05/2017 Inactive Amaryl 4 mg tablet RxNorm: 724984 1 Tablet(s) PO BID replaces 2mg 1 03/25/2016 05/22/2017 Inactive magnesium oxide 400 mg capsule RxNorm: 921874 1 Capsule(s) PO QD 07/18/2017 Inactive Ativan 0.5 mg tablet RxNorm: 399419 TAKE ONE TABLET BY MOUTH TH REE TIMES DAILY 01/17/2017 05/01/2017 Inactive Amaryl 2 mg tablet RxNorm: 421908 1 Tablet(s) PO BID 12/27/201601/22 Inactive Amaryl 2 mg tablet RxNorm: 899132 1 Tablet(s) PO BID 12/26/201612/26 Inactive Ativan 0.5 mg tablet RxNorm: 181864 TAKE ONE TABLET BY MOUTH TH REE TIMES DAILY 12/05/2016 01/18/2017 Inactive pramipexole 1 mg tablet RxNorm: 618121 1 Tablet(s) PO Q PM for restless legs--replaces requip 11/26/2016 05/30/2017 Inactive Mobic 15 mg tablet RxNorm: 152933 1 Tablet(s) PO QD 10/08/20162016 Inactive cyclobenzaprine 5 mg tablet RxNorm: 684222 1/2- 1 Tablet(s) PO TID 10/08/2016 10/17/2016 Inactive Ativan 0.5 mg tablet RxNorm: 225305 1 Tablet(s) PO TID 09/20/201607/2016 Inactive amitriptyline 50 mg tablet RxNorm: 935879 1 Tablet(s) PO QHS 201605/30/2017 Inactive propranolol 60 mg tablet RxNorm: 534717 1 Tablet(s) PO BID repl aces 40mg dose 09/19/2016 06/26/2017 Inactive Ativan 0.5 mg tablet RxNorm: 421185 1 Tablet(s) PO TID 08/20/2016 Inactive omeprazole 40 mg capsule,delayed release RxNorm: 183990 1 Capsule(s) PO BID TAKE ONE CAPSULE BY MOUTH TWICE DAILY 08/20/2016 05/30/2017 Inactive amitriptyline 50 mg tablet RxNorm: 412208 1 Tablet(s) PO QHS 201609/18/2016 Inactive pramipexole 1 mg tablet RxNorm: 473035 1 Tablet(s) PO Q PM for restless legs--replaces requip 07/23/2016 11/25/2016 Inactive Amaryl 2 mg tablet RxNorm: 098446 1 Tablet(s) PO BID 07/23/201612/27 Inactive propranolol 40 mg tablet RxNorm: 358445 1 Tablet(s) PO BID 07/13/19 17 09/18/2016 Inactive Ativan 0.5 mg tablet RxNorm: 960505 1 Tablet(s) PO QID 06/19/2016 Inactive Amaryl 2 mg tablet RxNorm: 525234 1 Tablet(s) PO BID 06/19/201607/22 Inactive Ativan 0.5 mg tablet RxNorm: 343594 1 Tablet(s) PO QID 06/19/2016 Inactive buspirone 5 mg tablet RxNorm: 801820 1 Tablet(s) PO TID 06/19/2016 Inactive Ativan 0.5 mg tablet RxNorm: 212599 1 Tablet(s) PO BID 05/24/2016 Inactive buspirone 5 mg tablet RxNorm: 720753 1 Tablet(s) PO TID 05/23/2016 Inactive Macrobid 100 mg capsule RxNorm: 233641 1 Capsule(s) PO QOD 05/03/19 17 10/07/2016 Inactive pramipexole 1 mg tablet RxNorm: 504207 Tablet(s) 1 Tabl et(s) PO QPM for restless legs--replaces requip 04/26/2016 06/24/2016 Inactive propranolol 40 mg tablet RxNorm: 818465 TAKE ONE TABLET BY MOUT H TWICE DAILY 04/26/2016 06/24/2016 Inactive Detrol LA 4 mg capsule,extended release RxNorm: 940923 1 Capsul e(s) PO QHS 04/03/2016 05/02/2016 Inactive prednisone 20 mg tablet RxNorm: 488277 1 Tablet(s) PO QD 02/29/2016 0 03/04/2016 Inactive Actos 30 mg tablet RxNorm: 639108 TAKE ONE TABLET BY MOUTH ONCE DAILY 02/27/2016 12/19/2016 Inactive clindamycin 300 mg capsule RxNorm: 442218 1 Capsule(s) PO TID 02/0102/08/2016 Inactive Flagyl 500 mg tablet RxNorm: 118133 1 Tablet(s) PO BID 02/02/201609/2015 Inactive omeprazole 40 mg capsule,delayed release RxNorm: 338823 TAKE ONE CAPSULE BY MOUTH TWICE DAILY 01/15/2016 07/12/2016 Inactive gabapentin 300 mg capsule RxNorm: 319439 1 Capsule(s) PO QAM an d 2 po q HS 01/05/2016 06/18/2016 Inactive gabapentin 300 mg capsule RxNorm: 257418 1 Capsule(s) P O BID 1 Capsule(s) PO QHS 12/05/2015 01/04/2016 Inactive cyclobenzaprine 10 mg tablet RxNorm: 475311 1 Tablet(s) PO TID for spasm as needed for muscle spasm 12/05/2015 06/18/2016 Inactive ciprofloxacin 250 mg tablet RxNorm: 524007 1 Tablet(s) PO BID 12/0412/14/2015 Inactive pramipexole 1 mg tablet RxNorm: 591775 Tablet(s) 1 Tabl et(s) PO QPM for restless legs--replaces requip 11/07/2015 11/26/2016 Inactive Januvia 100 mg tablet RxNorm: 466030 1 Tablet(s) PO QD 10/26/201504/2015 Inactive propranolol 40 mg tablet RxNorm: 916558 TAKE ONE TABLET BY MOUT H TWICE DAILY 10/25/2015 04/21/2016 Inactive gabapentin 300 mg capsule RxNorm: 540939 1 Capsule(s) PO QHS 201512/04/2015 Inactive Cipro 500 mg tablet RxNorm: 592187 1 Tablet(s) PO BID 10/05/2015 0811/2015 Inactive pramipexole 1 mg tablet RxNorm: 089455 Tablet(s) 1 Tabl et(s) PO QPM for restless legs--replaces requip 10/04/2015 11/02/2015 Inactive propranolol 40 mg tablet RxNorm: 888554 TAKE ONE TABLET BY MOUT H TWICE DAILY 09/26/2015 10/24/2015 Inactive Amaryl 2 mg tablet RxNorm: 187791 1 Tablet(s) PO QD 09/15/20152016 Inactive gabapentin 300 mg capsule RxNorm: 012765 1 Capsule(s) PO QHS 201510/14/2015 Inactive buspirone 5 mg tablet RxNorm: 205681 1 Tablet(s) PO TID 09/15/2015 Inactive pramipexole 1 mg tablet RxNorm: 329510 Tablet(s) 1 Tabl et(s) PO QPM for restless legs--replaces requip 09/08/2015 10/03/2015 Inactive pramipexole 1 mg tablet RxNorm: 991790 1 Tablet(s) PO Q PM for restless legs--replaces requip 08/08/2015 09/08/2015 Inactive Amaryl 2 mg tablet RxNorm: 656914 1 Tablet(s) PO QD 07/07/20152015 Inactive pramipexole 1 mg tablet RxNorm: 050553 1 Tablet(s) PO Q PM for restless legs--replaces requip 07/05/2015 08/03/2015 Inactive ropinirole 2 mg tablet RxNorm: 912310 TAKE ONE TABLET BY MOUTH TWICE DAILY 05/09/2015 09/14/2015 Inactive Diflucan 100 mg tablet RxNorm: 014241 1 Tablet(s) PO QD 03/30/2015 Inactive propranolol 40 mg tablet RxNorm: 010236 1 Tablet(s) PO BID 02/24/20 15 08/21/2015 Inactive [SAVINGS FOR UNINSURED PATIE NTS -- BIN:824607, PCN: ASPROD1, Group: AME08, ID# [id number], Process claim through [employer], for questions: . THIS IS NOT INSURANCE.] Flagyl 500 mg tablet RxNorm: 999908 1 Tablet(s) PO BID 02/03/201502/2015 Inactive Cipro 500 mg tablet RxNorm: 050147 1 Tablet(s) PO BID 02/03/201502/01 Inactive Carafate 1 gram tablet RxNorm: 015926 1 Tablet(s) PO QID make i nto slurry 02/03/2015 09/14/2015 Inactive ondansetron HCl 4 mg tablet RxNorm: 778739 1 Tablet(s) PO Q4H as needed for nausea 12/29/2014 01/04/2016 Inactive Diflucan 100 mg tablet RxNorm: 944015 1 Tablet(s) PO QD 12/29/2014 Inactive Keflex 500 mg capsule RxNorm: 859351 1 Capsule(s) PO TID 12/29/2014 1 03/09/2014 Inactive omeprazole 40 mg capsule,delayed release RxNorm: 256312 1 Capsu le(s) PO BID 12/27/2014 12/21/2015 Inactive [SAVINGS FOR UNINSUR ED PATIENTS -- BIN:966491, PCN: ASPROD1, Group: AME08, ID# [id number], Process claim through [employer], for questions: . THIS IS NOT INSURANCE.] ropinirole 2 mg tablet RxNorm: 493145 1 Tablet(s) PO BID 09/29/2014 0 03/27/2015 Inactive [SAVINGS FOR UNINSURED PATIENTS -- BIN:0 37280, PCN: ASPROD1, Group: AME08, ID# [id number], Process claim through [employer], for questions: . THIS IS NOT INSURANCE.] buspirone 5 mg tablet RxNorm: 879321 1 Tablet(s) PO TID 09/17/2014 Inactive ropinirole 2 mg tablet RxNorm: 513564 1 Tablet(s) PO BID 09/02/2014 0 09/28/2014 Inactive [SAVINGS FOR UNINSURED PATIENTS -- BIN:0 95386, PCN: ASPROD1, Group: AME08, ID# [id number], Process claim through [employer], for questions: . THIS IS NOT INSURANCE.] Zyrtec 10 mg tablet RxNorm: 0200056 1 Tablet(s) PO QD 09/02/201412/02 Inactive propranolol 40 mg tablet RxNorm: 202374 1 Tablet(s) PO BID 07/21/19 15 02/23/2015 Inactive [SAVINGS FOR UNINSURED PATIE NTS -- BIN:049738, PCN: ASPROD1, Group: AME08, ID# [id number], Process claim through [employer], for questions: . THIS IS NOT INSURANCE.] ropinirole 2 mg tablet RxNorm: 427750 1 Tablet(s) PO QHS 05/14/2014 0 09/01/2014 Inactive [SAVINGS FOR UNINSURED PATIENTS -- BIN:0 84606, PCN: ASPROD1, Group: AME08, ID# [id number], Process claim through [employer], for questions: . THIS IS NOT INSURANCE.] cyclobenzaprine 10 mg tablet RxNorm: 650707 1 Tablet(s) PO QHS for spasm 04/06/2014 09/01/2014 Inactive ipratropium-albuterol 0.5 mg-3 mg(2.5 mg base)/3 mL ne bulization soln RxNorm: 6023420 1 Unit Dose INH Q4H 03/16/2014 No Stop Date Active [SAVINGS FOR UNINSURED PATIENTS -- BIN:058608, PCN: ASPROD1, Group: AME08, ID# [id number], Process claim through [employer], for questions: . THIS IS NOT INSURANCE.] prednisone 20 mg tablet RxNorm: 197940 1 Tablet(s) PO BID 03/09/2014 03/15/2014 Inactive [SAVINGS FOR UNINSURED PATIENTS -- BIN:0 49190, PCN: ASPROD1, Group: AME08, ID# [id number], Process claim through [employer], for questions: . THIS IS NOT INSURANCE.] ipratropium-albuterol 0.5 mg-3 mg(2.5 mg base)/3 mL ne bulization soln RxNorm: 2099153 1 Unit Dose INH Q4H 03/09/2014 03/15/2014 Inactive [SAVINGS FOR UNINSURED PATIENTS -- BIN:706499, PCN: ASPROD1, Group: AME08, ID# [id number], Process claim through [employer], for questions: . THIS IS NOT INSURANCE.] Levaquin 500 mg tablet RxNorm: 901763 1 Tablet(s) PO QD 03/09/2014 Inactive [SAVINGS FOR UNINSURED PATIENTS -- BIN:0 43393, PCN: ASPROD1, Group: AME08, ID# [id number], Process claim through [employer], for questions: . THIS IS NOT INSURANCE.] Carafate 1 gram tablet RxNorm: 121684 1 Tablet(s) PO AC & HS ma ke into slurry 02/09/2014 09/01/2014 Inactive [SAVINGS FOR UNINSUR ED PATIENTS -- BIN:951053, PCN: ASPROD1, Group: AME08, ID# [id number], Process claim through [employer], for questions: . THIS IS NOT INSURANCE.] Fioricet 50 mg-300 mg-40 mg capsule RxNorm: 5739574 1-2 Capsule(s) PO Q4H as needed for headache --max of 6 a day 02/09/2014 09/01/2014 Inactive [SAVINGS FOR UNINSURED PATIENTS -- BIN:049719, PCN: ASPROD1, Group: AME08, ID# [id number], Process claim through [employer], for questions: . THIS IS NOT INSURANCE.] propranolol 40 mg tablet RxNorm: 666369 1 Tablet(s) PO BID 12/08/19 14 06/04/2014 Inactive [SAVINGS FOR UNINSURED PATIE NTS -- BIN:162723, PCN: ASPROD1, Group: AME08, ID# [id number], Process claim through [employer], for questions: . THIS IS NOT INSURANCE.] buspirone 5 mg tablet RxNorm: 300285 1 Tablet(s) PO TID 12/02/2013 Inactive omeprazole 40 mg capsule,delayed release RxNorm: 461604 1 Capsu le(s) PO BID 11/25/2013 11/19/2014 Inactive [SAVINGS FOR UNINSUR ED PATIENTS -- BIN:534952, PCN: ASPROD1, Group: AME08, ID# [id number], Process claim through [employer], for questions: . THIS IS NOT INSURANCE.] ropinirole 2 mg tablet RxNorm: 159128 1 Tablet(s) PO QHS 11/10/2013 0 05/08/2014 Inactive [SAVINGS FOR UNINSURED PATIENTS -- BIN:0 19479, PCN: ASPROD1, Group: AME08, ID# [id number], Process claim through [employer], for questions: . THIS IS NOT INSURANCE.] Cipro 500 mg tablet RxNorm: 807262 1 Tablet(s) PO BID 10/21/201312/03 Inactive [SAVINGS FOR UNINSURED PATIENTS -- BIN:0 31003, PCN: ASPROD1, Group: AME08, ID# [id number], Process claim through [employer], for questions: . THIS IS NOT INSURANCE.] hydroxyzine HCl 25 mg tablet RxNorm: 002559 1 Tablet(s) PO Q4-6 H as needed 10/05/2013 01/04/2016 Inactive [SAVINGS FOR UNINSUR ED PATIENTS -- BIN:517954, PCN: ASPROD1, Group: AME08, ID# [id number], Process claim through [employer], for questions: . THIS IS NOT INSURANCE.] triamcinolone acetonide 0.1 % topical cream RxNorm: 8278239 Appl ication TOP BID 10/05/2013 09/01/2014 Inactive [SAVINGS FOR UNINSUR ED PATIENTS -- BIN:595784, PCN: ASPROD1, Group: AME08, ID# [id number], Process claim through [employer], for questions: . THIS IS NOT INSURANCE.] albuterol sulfate HFA 90 mcg/actuation aerosol inhaler RxNor m: 0167448 2 Puff(s) INH Q4H as needed for cough 10/01/2013 12/22/2013 Inactive [MAKSIM INGS FOR UNINSURED PATIENTS -- BIN:566152, PCN: ASPROD1, Group: AME08, ID# [id number], Process claim through [employer], for questions: . THIS IS NOT INSURANCE.] propranolol 40 mg tablet RxNorm: 767539 1 Tablet(s) PO BID 09/02/19 14 11/29/2013 Inactive [SAVINGS FOR UNINSURED PATIE NTS -- BIN:242601, PCN: ASPROD1, Group: AME08, ID# [id number], Process claim through [employer], for questions: . THIS IS NOT INSURANCE.] propranolol 40 mg tablet RxNorm: 852762 1 Tablet(s) PO BID 08/05/19 14 08/31/2013 Inactive [SAVINGS FOR UNINSURED PATIE NTS -- BIN:360006, PCN: ASPROD1, Group: AME08, ID# [id number], Process claim through [employer], for questions: . THIS IS NOT INSURANCE.] Toprol XL 50 mg tablet,extended release RxNorm: 722478 1 Tablet (s) PO QHS 07/23/2013 08/03/2013 Inactive Macrobid 100 mg capsule RxNorm: 604746 1 Capsule(s) PO BID 07/04/19 14 07/09/2013 Inactive Toprol XL 50 mg tablet,extended release RxNorm: 279007 1 Tablet (s) PO QHS 05/28/2013 06/26/2013 Inactive ciprofloxacin 500 mg tablet RxNorm: 068798 1 Tablet(s) PO BID 05/2706/02/2013 Inactive Bystolic 5 mg tablet RxNorm: 309472 1 Tablet(s) PO QD 05/27/201305/03 Inactive ropinirole 2 mg tablet RxNorm: 747455 1 Tablet(s) PO QHS 04/22/2013 0 11/09/2013 Inactive Cipro 250 mg tablet RxNorm: 750175 1 Tablet(s) PO BID 04/06/201311/2013 Inactive ropinirole 2 mg tablet RxNorm: 611763 1 Tablet(s) PO QHS 02/17/2013 0 04/21/2013 Inactive Amaryl 2 mg tablet RxNorm: 513483 1 Tablet(s) PO QAM 11/11/201211/10 Inactive Amaryl 2 mg tablet RxNorm: 221346 1 Tablet(s) PO QAM 11/11/201204/05 Inactive omeprazole 40 mg capsule,delayed release RxNorm: 865507 1 Capsu le(s) PO BID 08/14/2012 08/08/2013 Inactive Bystolic 5 mg tablet RxNorm: 951705 1 Tablet(s) PO QD 08/14/201205/03 Inactive propranolol 60 mg tablet RxNorm: 932929 Tablet(s) PO TAKE 1 TAB LET TWICE DAILY 08/01/2012 09/01/2012 Inactive Bystolic 5 mg tablet RxNorm: 917187 1 Tablet(s) PO QD 07/21/201207/02 Inactive Bystolic 5 mg tablet RxNorm: 153427 1 Tablet(s) PO QD 07/21/201207/03 Inactive Prilosec 40 mg capsule,delayed release RxNorm: 157285 1 Capsule (s) PO BID 06/24/2012 07/21/2012 Inactive buspirone 10 mg tablet RxNorm: 387280 1 Tablet(s) PO TID 05/08/2012 0 05/23/2016 Inactive Valium 10 mg tablet RxNorm: 833781 1 Tablet(s) PO BID 04/02/201207/03 Inactive Endocet 10 mg-325 mg tablet RxNorm: 3294208 1 Tablet(s) PO QID 03/0607/21/2012 Inactive as needed for severe pain Valium 10 mg tablet RxNorm: 870501 1 Tablet(s) PO BID 02/27/2012 No S top Date Active Endocet 10 mg-325 mg tablet RxNorm: 7110340 1 Tablet(s) PO QID 02/0203/27/2012 Inactive as needed for severe pain Endocet 10 mg-325 mg tablet RxNorm: 0315555 1 Tablet(s) PO QID 01/0302/26/2012 Inactive as needed for severe pain Valium 10 mg tablet RxNorm: 150479 1 Tablet(s) PO BID 01/29/2012 No S top Date Active Protonix 40 mg tablet,delayed release RxNorm: 944695 1 Tablet(s ) PO QD 01/28/2012 07/21/2012 Inactive metformin ER 500 mg tablet,extended release 24 hr RxNorm: 86 0977 1 Tablet(s) PO QD 12/26/2011 07/20/2012 Inactive Trazadone 150 mg Tablet RxNorm: 1 Tablet(s) PO QHS prn sleep 1 04/23/2012 Inactive Endocet 10 mg-325 mg tablet RxNorm: 0081500 1 Tablet(s) PO QID 12/0301/24/2012 Inactive as needed for severe pain Nexium 40 mg capsule,delayed release RxNorm: 489229 1 Capsule(s ) PO QD 12/26/2011 01/27/2012 Inactive Symbicort 160 mcg-4.5 mcg/actuation HFA Aerosol Inhaler RxNo rm: 1701656 2 Puff(s) INH BID 12/04/2011 07/21/2012 Inactive Endocet 10 mg-325 mg tablet RxNorm: 2684638 1 Tablet(s) PO QID 11/0312/25/2011 Inactive as needed for severe pain metformin ER 500 mg tablet,extended release 24 hr RxNorm: 86 0977 1 Tablet(s) PO QD 11/20/2011 12/19/2011 Inactive metformin ER 500 mg tablet,extended release 24 hr RxNorm: 86 0977 1 Tablet(s) PO QD 11/20/2011 11/19/2011 Inactive amitriptyline 100 mg tablet RxNorm: 727547 Tablet(s) PO QHS 1 a nd /2 tabs QHS 11/12/2011 11/13/2011 Inactive Valium 10 mg tablet RxNorm: 517216 1 Tablet(s) PO BID 11/09/2011 No S top Date Active Endocet 10 mg-325 mg tablet RxNorm: 9336781 1 Tablet(s) PO QID 10/0211/14/2011 Inactive as needed for severe pain Aricept 10 mg Tab RxNorm: 533250 1 Tablet(s) PO QD 10/05/2011 013 Inactive Valium 10 mg tablet RxNorm: 161420 1 Tablet(s) PO BID 10/05/2011 No S top Date Active Endocet 10 mg-325 mg Tab RxNorm: 4417507 1 Tablet(s) PO QID 012 10/09/2011 Inactive as needed for severe pain Aricept 10 mg Tab RxNorm: 222821 1 Tablet(s) PO QD 08/14/2011 012 Inactive Endocet 10 mg-325 mg Tab RxNorm: 5008982 1 Tablet(s) PO QID 012 08/31/2011 Inactive as needed for severe pain Valium 10 mg Tab RxNorm: 146860 1 Tablet(s) PO BID 08/02/2011 No Stop Date Active propranolol 60 mg tablet RxNorm: 795819 1 Tablet(s) PO BID 07/26/19 12 09/11/2011 Inactive amitriptyline 100 mg tablet RxNorm: 796384 Tablet(s) PO QHS 1 a nd 1/2 tabs QHS 06/20/2011 09/11/2011 Inactive buspirone 10 mg tablet RxNorm: 878447 1 Tablet(s) PO BID 06/18/2011 0 09/15/2011 Inactive propranolol 60 mg Tab RxNorm: 940230 1 Tablet(s) PO BID 06/18/2011 Inactive gabapentin 800 mg Tab RxNorm: 669566 1 Tablet(s) PO BID 06/18/2011 Inactive ropinirole 2 mg tablet RxNorm: 867384 1 Tablet(s) PO QHS 05/29/2011 0 08/26/2011 Inactive trimethoprim 100 mg Tab RxNorm: 132648 1 Tablet(s) PO QHS 05/29/2011 07/21/2012 Inactive Endocet 10 mg-325 mg Tab RxNorm: 2869197 1 Tablet(s) PO QID 012 2011 Inactive as needed for severe pain Valium 10 mg Tab RxNorm: 130477 1 Tablet(s) PO QHS N eed to take med as prescribed. this is a 40 day RX. No early fills. 05/17/2011 05/20/2018 Inactive propranolol 60 mg Tab RxNorm: 161147 1 Tablet(s) PO BID 04/16/2011 Inactive Neurontin 800 mg Tab RxNorm: 856291 1 Tablet(s) PO QHS 04/05/201103/2011 Inactive Endocet 10 mg-325 mg Tab RxNorm: 6473207 1 Tablet(s) PO QID 012 05/02/2011 Inactive as needed for severe pain oxycodone-acetaminophen 10 mg-325 mg tablet RxNorm: 0107520 1 Ta blet(s) PO Q4H 03/28/2011 05/19/2012 Inactive Valium 10 mg Tab RxNorm: 810191 1 Tablet(s) PO QHS 03/28/2011 012 Inactive buspirone 10 mg Tab RxNorm: 368739 1 Tablet(s) PO BID 03/27/201106/02 Inactive propranolol 60 mg Tab RxNorm: 900585 1 Tablet(s) PO BID 03/19/2011 Inactive Klor-Con M20 20 mEq Tab RxNorm: 6784736 1 Tablet(s) PO QD 03/19/2011 07/21/2012 Inactive Aricept 10 mg Tab RxNorm: 231740 1 Tablet(s) PO QD 02/27/2011 012 Inactive propranolol 60 mg Tab RxNorm: 287115 1 Tablet(s) PO BID 02/19/2011 Inactive omeprazole 40 mg capsule,delayed release RxNorm: 936793 1 Capsu le(s) PO BID 01/24/2011 05/23/2011 Inactive clindamycin 300 mg capsule RxNorm: 393937 1 Capsule(s) PO TID 01/2402/02/2011 Inactive propranolol 60 mg Tab RxNorm: 597821 1 Tablet(s) PO BID 01/22/2011 No Stop Date Active nystatin 100,000 unit/g Topical Cream RxNorm: 446864 Applicatio n TOP BID 01/15/2011 01/14/2011 Inactive to rash for 2-4 week s Diflucan 200 mg Tab RxNorm: 005009 1 Tablet(s) PO QD 01/15/201101/28 Inactive buspirone 10 mg Tab RxNorm: 288263 1 Tablet(s) PO BID 01/08/201103/05 Inactive Valium 10 mg Tab RxNorm: 699519 1 Tablet(s) PO QHS 01/05/2011 012 Inactive Diflucan 200 mg Tab RxNorm: 013865 1 Tablet(s) PO QD 01/01/201101/14 Inactive Diflucan 200 mg Tab RxNorm: 087501 1 Tablet(s) PO QD 12/18/201012/31 Inactive Valium 10 mg Tab RxNorm: 263109 1 Tablet(s) PO QHS 12/12/2010 011 Inactive Diflucan 200 mg Tab RxNorm: 042739 1 Tablet(s) PO QD 12/07/201012/18 Inactive Aricept 10 mg Tab RxNorm: 129311 1 Tablet(s) PO QD 11/20/2010 011 Inactive ropinirole 1 mg Tab RxNorm: 606399 1 Tablet(s) PO QHS 11/16/201005/03 Inactive enalapril maleate 5 mg Tab RxNorm: 649293 1 Tablet(s) PO QD 011 05/20/2018 Inactive buspirone 10 mg Tab RxNorm: 716353 1 Tablet(s) PO BID 11/16/201012/02 Inactive Valium 10 mg Tab RxNorm: 880795 1 Tablet(s) PO QHS 11/07/2010 011 Inactive Pyridium 100 mg Tab RxNorm: 1337516 1 Tablet(s) PO TID 11/02/201004/2010 Inactive Macrobid 100 mg Cap RxNorm: 1559869 1 Capsule(s) PO BID 11/02/2010 Inactive buspirone 10 mg Tab RxNorm: 299951 1 Tablet(s) PO QHS 10/18/201005/02 Inactive propranolol 60 mg Tab RxNorm: 521058 1 Tablet(s) PO BID 09/18/2010 Inactive Valium 10 mg Tab RxNorm: 428848 1 Tablet(s) PO QHS 09/05/2010 011 Inactive Aricept 10 mg Tab RxNorm: 468407 1 Tablet(s) PO QD 08/14/2010 011 Inactive Valium 10 mg Tab RxNorm: 736269 1 Tablet(s) PO QHS 06/26/2010 011 Inactive ropinirole 1 mg Tab RxNorm: 761620 1 Tablet(s) PO QHS 06/19/201010/02 Inactive omeprazole 40 mg Cap, delayed release RxNorm: 521646 1 Capsule( s) PO QD 06/07/2010 10/04/2010 Inactive Endocet 10 mg-325 mg Tab RxNorm: 5668093 1 Tablet(s) PO QID as needed for severe pain 06/07/2010 03/07/2011 Inactive Endocet 10 mg-325 mg Tab RxNorm: 0378309 1 Tablet(s) PO QID as needed for severe pain 05/04/2010 06/02/2010 Inactive Valium 10 mg Tab RxNorm: 951967 1 Tablet(s) PO QHS 05/01/2010 011 Inactive propranolol 60 mg Tab RxNorm: 879950 1 Tablet(s) PO BID 04/03/2010 Inactive Valium 10 mg Tab RxNorm: 492192 1 Tablet(s) PO QHS 03/28/2010 011 Inactive omeprazole 40 mg Cap, Delayed Release RxNorm: 915188 1 Capsule( s) PO QD 03/28/2010 06/06/2010 Inactive Endocet 10 mg-325 mg Tab RxNorm: 3409669 1 Tablet(s) PO QID prn ari n 03/27/2010 05/20/2018 Inactive Valium 10 mg Tab RxNorm: 298793 1 Tablet(s) PO QHS 02/20/2010 011 Inactive Diflucan 100 mg Tab RxNorm: 616724 1 Tablet(s) PO BID 01/23/201003/2009 Inactive Diflucan 100 mg Tab RxNorm: 349926 1 Tablet(s) PO BID 01/05/201001/02 Inactive Aricept 10 mg Tab RxNorm: 125926 1 Tablet(s) PO QD 12/01/2009 011 Inactive OxyContin 20 mg 12 hr Tab RxNorm: 7262042 1 Tablet(s) PO BID 200904/05/2010 Inactive oxycodone-acetaminophen 10 mg-325 mg Tab RxNorm: 9030775 1 Table t(s) PO Q4H 11/22/2009 11/26/2009 Inactive Phenergan 25 mg Tab RxNorm: 969664 1 Tablet(s) PO PRN MIGRAINE 11/0303/07/2011 Inactive Demerol 100 mg Tab RxNorm: 582286 1 Tablet(s) PO PRN MIGRAINE 11/2203/07/2011 Inactive Oxycodone-Acetaminophen 10 mg-325 mg Tab RxNorm: 6209051 1 Table t(s) PO Q4H 10/11/2009 10/15/2009 Inactive Percocet 10 mg-325 mg Tab RxNorm: 6564614 1 Tablet(s) PO Q4H 200910/24/2009 Inactive propranolol 60 mg Tab RxNorm: 544160 1 Tablet(s) PO BID 08/29/2009 Inactive Valium 10 mg Tab RxNorm: 129954 1 Tablet(s) PO QHS 08/16/2009 010 Inactive Keflex 500 mg Cap RxNorm: 712866 1 Capsule(s) PO BID 07/25/200907/31 Inactive Hydroxyzine 25 mg Tab RxNorm: 406721 1 Tablet(s) PO TID 07/25/2009 Inactive Prednisone 20 mg Tab RxNorm: 651201 1 Tablet(s) PO BID 07/25/2009 Inactive Demerol 100 mg Tab RxNorm: 773266 1 Tablet(s) PO PRN MIGRAINE 07/25 No Stop Date Active Ropinirole 1 mg Tab RxNorm: 160900 1 Tablet(s) PO HS 07/20/200902/14 Inactive Valium 10 mg Tab RxNorm: 028938 1 Tablet(s) PO QHS 07/18/2009 010 Inactive Endocet 10 mg-325 mg Tab RxNorm: 8323732 1 Tablet(s) PO TID 010 07/07/2009 Inactive Demerol 100 mg Tab RxNorm: 202353 1 Tablet(s) PO PRN MIGRAINE 06/08 No Stop Date Active Ropinirole 1 mg Tab RxNorm: 873222 1 Tablet(s) PO HS 05/16/200907/14 Inactive ipratropium-albuterol 0.5 mg-3 mg(2.5 mg base)/3 mL ne bulization soln RxNorm: 1871916 1 Unit Dose INH Q4H as needed No Start Date Active MagOx 400 mg (241.3 mg magnesium) tablet RxNorm: 672942 1 Table t(s) PO BID No Start Date Active Vitamin B12 1000mcg Tablet RxNorm: 1 Tablet(s) PO QD No Start Date Active Vitamin D3 5,000 unit tablet RxNorm: 670280 1 Tablet(s) PO QD No Star t Date Active Tylenol Arthritis Pain 650 mg tablet,extended release RxNorm : 3942975 1 Tablet(s) PO Q4H No Start Date Active Lotrimin AF 2 % topical powder RxNorm: 671353 1 Application TOP BID No Start Date Active enalapril maleate 5 mg Tab RxNorm: 039361 1 Tablet(s) PO QD No Star t Date 07/20/2012 Inactive Demerol 100 mg Tab RxNorm: 414663 Tablet(s) PO PRN MIGRAINE No Star t Date 06/02/2009 Inactive metformin 500 mg tablet RxNorm: 793056 1 Tablet(s) PO QD No Start D ate 04/05/2013 Inactive Breo Ellipta 100 mcg-25 mcg/dose powder for inhalation RxNor m: 2994578 1 Puff(s) INH BID No Start Date 01/04/2016 Inactive Mag-Oxide 400 mg Tab RxNorm: 628799 1 Tablet(s) PO QD No Start Date 0 07/21/2012 Inactive Cipro 500 mg Tab RxNorm: 887209 1 Tablet(s) PO QD No Start Date 04/05 Inactive Ativan 0.5 mg tablet RxNorm: 275154 1 Tablet(s) PO TID as needed No Start Date 05/06/2019 Inactive melatonin 3 mg tablet RxNorm: 425698 2 Tablet(s) PO QHS No Start Da te 08/19/2018 Inactive buspirone 10 mg Tab RxNorm: 953807 1 Tablet(s) PO QD No Start Date Inactive sucralfate 100 mg/mL Oral Susp RxNorm: 896392 2 Teaspoon(s) PO QID No Start Date 07/21/2012 Inactive hydrocodone 5 mg-acetaminophen 325 mg tablet RxNorm: 142976 1 Tablet(s) PO Q4H as needed No Start Date 08/19/2018 Inactive Amaryl 2 mg tablet RxNorm: 968415 1 Tablet(s) PO BID No Start Date Inactive OxyContin 20 mg 12 hr Tab RxNorm: 7556158 1 Tablet(s) PO BID No Sta rt Date 11/27/2009 Inactive propranolol 40 mg tablet RxNorm: 804527 1 Tablet(s) PO QID No Start Date 01/19/2018 Inactive Trazadone 150 mg Tablet RxNorm: 1-2 Tablet(s) PO QHS prn sleep No Start Date 08/09/2010 Inactive propranolol 60 mg Tab RxNorm: 644074 1/2 Tablet(s) PO BID No Start Date 01/21/2011 Inactive insulin NPH and regular human subcutaneous RxNorm: 6729496 subcu taneous No Start Date 11/20/2018 Inactive Ativan 0.5 mg tablet RxNorm: 347995 1 Tablet(s) PO QID No Start Date 06/18/2016 Inactive Vasotec 5 mg Tab RxNorm: 410696 1 Tablet(s) PO BID No Start Date 06/2011 Inactive Toprol XL 50 mg tablet,extended release RxNorm: 808531 1 Tablet (s) PO BID No Start Date 04/05/2013 Inactive Ativan 0.5 mg tablet RxNorm: 778318 1 Tablet(s) PO TID No Start Date 05/25/2016 Inactive Klor-Con M20 20 mEq Tab RxNorm: 7987087 1 Tablet(s) PO QD No Start Date 03/19/2011 Inactive sumatriptan 100 mg tablet RxNorm: 232872 1 Tablet(s) PO at headache onset--repeat in 2hrs if remains No Start Date 07/21/2012 Inactive propranolol 60 mg Tab RxNorm: 010865 1 Tablet(s) PO BID No Start Da te 08/28/2009 Inactive Cholestyramine Light 4 gram Oral Powder RxNorm: 2891032 1 Unit Dose PO QD in water No Start Date 07/21/2012 Inactive nystatin 100,000 unit/g Topical Powder RxNorm: 359667 Applicati on TOP BID No Start Date 07/21/2012 Inactive vitamin R10-dwltd acid sublingual RxNorm: sublingual No Start Date 07/05/2013 Inactive cyclobenzaprine 5 mg tablet RxNorm: 484865 1/2-1 Tablet (s) PO TID as needed for muscle spasm No Start Date 07/18/2017 Inactive tramadol 50 mg tablet RxNorm: 386624 2 Tablet(s) PO TID as need ed for pain No Start Date 09/01/2014 Inactive aspirin 81 mg Tab RxNorm: 350774 1 Tablet(s) PO QOD No Start Date 04/2013 Inactive Vitamin B12 1000mcg Tablet RxNorm: 1 Tablet(s) PO QD No Start Date 07/18/2017 Inactive cholestyramine (with sugar) 4 gram oral powder RxNorm: 83679 3 1 Unit(s) PO QD as needed No Start Date 05/20/2018 Inactive ProAir HFA 90 mcg/Actuation Aerosol Inhaler RxNorm: 223351 2 Puff(s) INH Q4H prn shortness of breath No Start Date 07/21/2012 Inactive pravastatin 10 mg Tab RxNorm: 718026 1 Tablet(s) PO QD No Start Date 07/21/2012 Inactive gabapentin 800 mg Tab RxNorm: 482323 1 Tablet(s) PO BID No Start Da te 06/03/2011 Inactive Endocet 10 mg-325 mg Tab RxNorm: 8452851 1 Tablet(s) PO TID No Star t Date 06/02/2009 Inactive Naproxen 500 mg Tab RxNorm: 629137 1 Tablet(s) PO BID No Start Date 0 04/05/2010 Inactive Valium 10 mg Tab RxNorm: 432508 1 Tablet(s) PO BID No Start Date 07/04 Inactive enalapril maleate 5 mg Tab RxNorm: 018232 1 Tablet(s) PO QD No Star t Date 11/15/2010 Inactive doxepin 10 mg capsule RxNorm: 0756727 2 Capsule(s) PO QHS No Start Date 09/17/2018 Inactive MS Contin 15 mg Tab RxNorm: 235642 1 Tablet(s) PO BID No Start Date 0 09/18/2010 Inactive buspirone 5 mg tablet RxNorm: 043923 1 Tablet(s) PO TID No Start Da te 12/01/2013 Inactive [place] 3 Fish Oil Cap RxNorm: 1 Capsule(s) PO QD No Start Date 07/03 Inactive enalapril maleate 5 mg Tab RxNorm: 945628 1/2 Tablet(s) PO QD No St art Date 03/07/2011 Inactive Lyrica 75 mg capsule RxNorm: 402851 1 Capsule(s) PO QHS No Start Da te 02/08/2014 Inactive Lopressor 100 mg tablet RxNorm: 860575 1 Tablet(s) PO BID No Start Date 06/08/2018 Inactive Lantus Solostar U-100 Insulin 100 unit/mL (3 mL) subcu taneous pen RxNorm: 653718 45 Unit(s) SQ QAM No Start Date 05/20/2018 Inactive aspirin 81 mg tablet RxNorm: 209697 1 Tablet(s) PO QD No Start Date 0 09/14/2015 Inactive diltiazem CD 240 mg capsule,extended release 24 hr RxNorm: 8 50721 1 Capsule(s) PO QD No Start Date 05/25/2019 Inactive insulin NPH isophane U-100 human subcutaneous RxNorm: 175388 beckwith bcutaneous No Start Date 04/20/2019 Inactive sumatriptan 100 mg tablet RxNorm: 550292 1 Tablet(s) PO at headache onset. May repeat 1 in two hours if headache remains. Max of 2 per 24 hours No Start Date 04/01/2018 Inactive gabapentin 300 mg capsule RxNorm: 892690 1 Capsule(s) PO QHS No Sta rt Date 02/04/2018 Inactive Topamax 25 mg Tab RxNorm: 193574 Oral No Start Date 03/07/2011 In active Senokot-S 8.6 mg-50 mg Tab RxNorm: 1499157 1 Tablet(s) PO QD No Sta rt Date 03/07/2011 Inactive metformin ER 500 mg 24 hr tablet,extended release RxNorm: 18 55155 1 Tablet(s) PO QD No Start Date 05/20/2018 Inactive Symbicort 80 mcg-4.5 mcg/actuation HFA Aerosol Inhaler RxNor m: 0335422 2 Puff(s) INH BID No Start Date 04/05/2013 Inactive metoprolol tartrate 25 mg tablet RxNorm: 748830 1 Tablet(s) PO BID No Start Date 05/20/2019 Inactive propranolol 60 mg Tab RxNorm: 220711 1/2 Tablet(s) PO BID No Start Date 07/21/2012 Inactive metformin ER 500 mg 24 hr tablet,extended release RxNorm: 18 88055 2 Tablet(s) PO QD No Start Date 12/16/2017 Inactive Insulin Syringe 1 mL 29 gauge x 1/2" RxNorm: 2 s yringes daily with insulin Dx: E11.65 No Start Date 10/07/2018 Inactive Amitriptyline 75 mg Tab RxNorm: 376161 1 Tablet(s) PO QHS No Start Date 10/23/2009 Inactive donepezil 10 mg Tab RxNorm: 292504 1 Tablet(s) PO QD No Start Date Inactive Lantus Solostar U-100 Insulin 100 unit/mL (3 mL) subcu taneous pen RxNorm: 672354 36 Unit(s) SQ QAM No Start Date 12/24/2017 Inactive Miacalcin 200 unit/Actuation Nasal [place] Aerosol RxNorm: 261 204 1 [place] NASAL QD Alternate nostrils each day No Start Date 04/05/2010 Inactive Amitriptyline 150 mg Tab RxNorm: 134144 1 Tablet(s) PO QHS No Start Date 01/04/2010 Inactive Bystolic 5 mg tablet RxNorm: 655211 1 Tablet(s) PO QD No Start Date 0 08/13/2012 Inactive Aricept 10 mg Tab RxNorm: 823932 1 Tablet(s) PO QD No Start Date 11/03 Inactive Lantus Solostar U-100 Insulin 100 unit/mL (3 mL) subcu taneous pen RxNorm: 782519 50 Unit(s) SQ QAM No Start Date 08/27/2018 Inactive albuterol sulfate 2.5 mg/3 mL (0.083 %) Neb Solution RxNorm: 266836 1 Unit Dose INH QID as needed No Start Date 08/23/2015 Inactive Symbicort 160 mcg-4.5 mcg/actuation HFA Aerosol Inhaler RxNo rm: 6270604 2 Puff(s) INH BID No Start Date 12/03/2011 Inactive [place] 50 mg Tab RxNorm: 485801 1 Tablet(s) PO BID No Start Date 04/2010 Inactive amitriptyline 100 mg Tab RxNorm: 211515 1 1/2 Tablet(s) PO QHS No S tart Date 06/19/2011 Inactive nystatin 100,000 unit/g Topical Cream RxNorm: 268679 Ap plication TOP BID to rash for 2-4 weeks No Start Date 01/14/2011 Inactive Trelegy Ellipta 100 mcg-62.5 mcg-25 mcg powder for inhalatio n RxNorm: 3682969 1 Puff(s) INH QD No Start Date 12/16/2017 Inactive Lyrica 150 mg capsule RxNorm: 866988 1 Capsule(s) PO QHS No Start D ate 12/04/2015 Inactive sennosides 8.6 mg tablet RxNorm: 664762 1 Tablet(s) PO BID No Start Date 09/07/2018 Inactive metformin ER 500 mg tablet,extended release 24 hr RxNorm: 86 0975 1 Tablet(s) PO QD No Start Date 10/22/2017 Inactive Fish Oil 1,000 mg Cap RxNorm: 1 Capsule(s) PO QD No Start Date 06/2011 Inactive Zyrtec 10 mg Tab RxNorm: 3381836 1 Tablet(s) PO QD No Start Date 07/03 Inactive albuterol sulfate HFA 90 mcg/actuation aerosol inhaler RxNor m: 3014017 2 Puff(s) INH Q4H as needed for cough No Start Date 09/30/2013 Inactive trazodone 150 mg tablet RxNorm: 742746 1 Tablet(s) PO QHS No Start Date 07/21/2012 Inactive Spiriva with HandiHaler 18 mcg & inhalation capsules RxNorm: 598870 1 Capsule(s) INH QD No Start Date 04/05/2013 Inactive Coreg 3.125 mg Tab RxNorm: 073564 1 Tablet(s) PO BID No Start Date Inactive Phenergan 25 mg Tab RxNorm: 130896 Tablet(s) PO PRN MIGRAINE No Sta rt Date 11/21/2009 Inactive Vitamin D 50,000 unit Cap RxNorm: 7861325 1 Capsule(s) PO QW No Sta rt Date 03/07/2011 Inactive Januvia 100 mg tablet RxNorm: 557845 1 Tablet(s) PO QD No Start Date 10/25/2015 Inactive Eliquis 5 mg tablet RxNorm: 6267748 1 Tablet(s) PO BID No Start Date 08/19/2018 Inactive Advair Diskus 500 mcg-50 mcg/Dose for Inhalation RxNorm: 404317 1 INH BID No Start Date 07/21/2012 Inactive Vitamin D3 5,000 unit tablet RxNorm: 796469 1 Tablet(s) PO QD No St art Date 07/18/2017 Inactive Amaryl 2 mg tablet RxNorm: 704467 1 Tablet(s) PO QD No Start Date 06/2015 Inactive Actos 30 mg tablet RxNorm: 894688 1 Tablet(s) PO QD No Start Date Inactive promethazine 25 mg tablet RxNorm: 759760 1 Tablet(s) PO Q4H prn N/V No Start Date 07/21/2012 Inactive ProAir HFA 90 mcg/actuation Aerosol Inhaler RxNorm: 254550 2 Puff(s) INH Q4H prn dyspnea No Start Date 07/21/2012 Inactive Dexilant 60 mg Capsule RxNorm: 466104 1 Capsule(s) PO QD No Start D ate 01/27/2012 Inactive Lantus Solostar U-100 Insulin 100 unit/mL (3 mL) subcu taneous pen RxNorm: 821696 38 Unit(s) SQ QAM No Start Date 05/20/2018 Inactive Valium 10 mg Tab RxNorm: 537201 1 Tablet(s) PO QHS AND PRN No Start Date 10/24/2009 Inactive ZOFRAN ODT 8 mg disintegrating tablet RxNorm: 592951 1 Tablet(s ) PO Q6H No Start [...] Date S ervice Location MICROALBUMIN URINE RANDOM 21289 MICRL MG/L 14.9 MG/L Unknown MICROALBUMIN URINE RANDOM 63075 XM.ALB/CRE 6.1 MG/GCR Unknown MICROALBUMIN URINE RANDOM 92311 CREAT MG/D 243 MG/DL Unknown MICROALBUMIN URINE RANDOM 69765 CRE/100 2.43 G/L 03/05 Unknown PROTEIN/CREAT URINE WITH RATIO 66950|31082 PROT R U 14 MG/D L 04/01/2014 Unknown PROTEIN/CREAT URINE WITH RATIO 71732|86986 CREAT R U 254 MG/ DL 04/01/2014 Unknown PROTEIN/CREAT URINE WITH RATIO 75792|39446 XRATIO P/C 55 MG/ G 04/01/2014 Unknown URINALYSIS 33127 PROTEIN UR NEG 04/28/2010 Unknown URINALYSIS 43649 HEMGLBN UR NEG 04/28/2010 Unknown URINALYSIS 73191 GLUCOSE UR NEG 04/28/2010 Unknown URINALYSIS 91123 KETONES UR NEG 04/28/2010 Unknown URINALYSIS 69189 PH U 5.5 04/28/2010 Unknown URINALYSIS 54692 SP GR U 1.025 04/28/2010 Unknown URINALYSIS 37026 BILRUBN UR NEG 04/28/2010 Unknown URINALYSIS 07192 LEUKO UR 2+ 04/28/2010 Unknown URINALYSIS 14637 NITRITE UR NEG 04/28/2010 Unknown MICR CUL? [id number] WBC/HPF 6-10 04/28/2010 Unknown MICR CUL? [id number] RBC/HPF 0-5 04/28/2010 Unknown MICR CUL? [id number] HYAL CAST 16-25 04/28/2010 Unknown MICR CUL? [id number] SP TO YOLIE? NO 04/28/2010 Unknown MICR CUL? [id number] APPEAR UR NORMAL 04/28/2010 Unknown MICR CUL? [id number] SQ EPI/LPF FEW 04/28/2010 Unknown Procedures Procedure Codes Date URINALYSIS NONAUTO W/O SCOPE CPT-4: 74563 04/16/2019 URINE CULTURE/ COLONY COUNT CPT-4: 72302 04/16/2019 CEFTRIAXONE SODIUM INJECTION CPT-4: J0696 04/16/2019 THER/PROPH/DIAG INJ SC/IM CPT-4: 84969 04/16/2019 DRAIN/INJECT JOINT/BURSA CPT-4: 85296 01/22/2019 TRIAMCINOLONE ACET INJ NOS CPT-4: J3301 01/22/2019 DEXAMETHASONE SODIUM PHOS CPT-4: J1100 01/22/2019 URINE CULTURE/ COLONY COUNT CPT-4: 78427 01/07/2019 URINALYSIS NONAUTO W/O SCOPE CPT-4: 11878 01/07/2019 CEFTRIAXONE SODIUM INJECTION CPT-4: J0696 01/07/2019 THER/PROPH/DIAG INJ SC/IM CPT-4: 80093 01/07/2019 FLU VACC PRSV FREE INC ANTIG 65 AND OLDER CPT-4: 24867 12/24/2018 FLU VACC PRSV FREE INC ANTIG 65 AND OLDER CPT-4: 99358 12/24/2018 ADMIN INFLUENZA VIRUS VAC CPT-4: G0008 12/24/2018 THER/PROPH/DIAG INJ SC/IM CPT-4: 51849 11/04/2018 KETOROLAC TROMETHAMINE INJ CPT-4: J1885 11/04/2018 PROMETHAZINE HCL INJECTION CPT-4: J2550 11/04/2018 PPPS, subseq visit CPT-4: G0439 09/18/2018 THER/PROPH/DIAG INJ SC/IM CPT-4: 50501 04/01/2018 KETOROLAC TROMETHAMINE INJ CPT-4: J1885 04/01/2018 PROMETHAZINE HCL INJECTION CPT-4: J2550 04/01/2018 URINE CULTURE/ COLONY COUNT CPT-4: 57686 03/17/2018 URINALYSIS NONAUTO W/O SCOPE CPT-4: 13279 03/17/2018 FLU VACC PRSV FREE INC ANTIG 65 AND OLDER CPT-4: 73110 12/17/2017 PNEUMOCOCCAL VACC 23 RANDALL IM CPT-4: 05544 12/17/2017 ADMIN INFLUENZA VIRUS VAC CPT-4: G0008 12/17/2017 ADMIN PNEUMOCOCCAL VACCINE CPT-4: G0009 12/17/2017 PPPS, subseq visit CPT-4: G0439 09/17/2017 THER/PROPH/DIAG INJ SC/IM CPT-4: 38344 08/26/2017 KETOROLAC TROMETHAMINE INJ CPT-4: J1885 08/26/2017 PROMETHAZINE HCL INJECTION CPT-4: J2550 08/26/2017 URINALYSIS NONAUTO W/O SCOPE CPT-4: 24567 07/19/2017 URINE CULTURE/ COLONY COUNT CPT-4: 72958 07/19/2017 CEFTRIAXONE SODIUM INJECTION CPT-4: J0696 07/19/2017 THER/PROPH/DIAG INJ SC/IM CPT-4: 48036 07/19/2017 THER/PROPH/DIAG INJ SC/IM CPT-4: 17416 07/19/2017 TRIAMCINOLONE ACET INJ NOS CPT-4: J3301 07/19/2017 PRESCRIP TRANSMIT VIA ERX SY CPT-4: G8553 05/07/2017 PRESCRIP TRANSMIT VIA ERX SY CPT-4: G8553 02/22/2017 PRESCRIP TRANSMIT VIA ERX SY CPT-4: G8553 01/23/2017 FLU VACC PRSV FREE INC ANTIG 65 AND OLDER CPT-4: 23379 12/20/2016 PNEUMOCOCCAL VACC 13 RANDALL IM CPT-4: 99989 12/20/2016 ADMIN INFLUENZA VIRUS VAC CPT-4: G0008 12/20/2016 ADMIN PNEUMOCOCCAL VACCINE CPT-4: G0009 12/20/2016 URINALYSIS NONAUTO W/O SCOPE CPT-4: 58330 10/08/2016 URINE CULTURE/ COLONY COUNT CPT-4: 85812 10/08/2016 PRESCRIP TRANSMIT VIA ERX SY CPT-4: G8553 10/08/2016 PRESCRIP TRANSMIT VIA ERX SY CPT-4: G8553 09/19/2016 PRESCRIP TRANSMIT VIA ERX SY CPT-4: G8553 08/20/2016 PRESCRIP TRANSMIT VIA ERX SY CPT-4: G8553 02/29/2016 KETOROLAC TROMETHAMINE INJ CPT-4: J1885 02/02/2016 THER/PROPH/DIAG INJ SC/IM CPT-4: 51923 02/02/2016 PROMETHAZINE HCL INJECTION CPT-4: J2550 02/02/2016 PRESCRIP TRANSMIT VIA ERX SY CPT-4: G8553 02/02/2016 FLU VACC PRSV FREE INC ANTIG 65 AND OLDER CPT-4: 98780 01/05/2016 PPPS, subseq visit CPT-4: G0439 01/05/2016 ADMIN INFLUENZA VIRUS VAC CPT-4: G0008 01/05/2016 URINE CULTURE/ COLONY COUNT CPT-4: 56815 12/05/2015 URINALYSIS NONAUTO W/O SCOPE CPT-4: 25647 12/05/2015 PRESCRIP TRANSMIT VIA ERX SY CPT-4: G8553 12/05/2015 PRESCRIP TRANSMIT VIA ERX SY CPT-4: G8553 10/26/2015 URINALYSIS NONAUTO W/O SCOPE CPT-4: 27718 10/05/2015 URINE CULTURE/ COLONY COUNT CPT-4: 79897 10/05/2015 PRESCRIP TRANSMIT VIA ERX SY CPT-4: G8553 10/05/2015 MD SERVICE REQUIRED FOR PMD CPT-4: G0372 09/15/2015 PRESCRIP TRANSMIT VIA ERX SY CPT-4: G8553 09/15/2015 SPECIAL REPORTS OR FORMS CPT-4: 03264 08/25/2015 PRESCRIP TRANSMIT VIA ERX SY CPT-4: G8553 07/05/2015 URINALYSIS NONAUTO W/O SCOPE CPT-4: 31546 03/30/2015 ASSAY, GLUCOSE, BLOOD QUANT CPT-4: 17221 03/30/2015 URINE CULTURE/ COLONY COUNT CPT-4: 46398 03/30/2015 PRESCRIP TRANSMIT VIA ERX SY CPT-4: G8553 03/30/2015 PRESCRIP TRANSMIT VIA ERX SY CPT-4: G8553 02/03/2015 FLU VACC PRSV FREE INC ANTIG 65 AND OLDER CPT-4: 84460 12/29/2014 ADMIN INFLUENZA VIRUS VAC CPT-4: G0008 12/29/2014 PRESCRIP TRANSMIT VIA ERX SY CPT-4: G8553 12/29/2014 PRESCRIP TRANSMIT VIA ERX SY CPT-4: G8553 09/02/2014 PROTEIN/CREAT URINE WITH RATIO CPT-4: 97636|96930 5 MICROALBUMIN QUANTITATIVE CPT-4: 30564 04/01/2014 PRESCRIP TRANSMIT VIA ERX SY CPT-4: G8553 03/16/2014 PRESCRIP TRANSMIT VIA ERX SY CPT-4: G8553 03/09/2014 THER/PROPH/DIAG INJ SC/IM CPT-4: 06215 03/01/2014 TRIAMCINOLONE ACET INJ NOS CPT-4: J3301 03/01/2014 PRESCRIP TRANSMIT VIA ERX SY CPT-4: G8553 02/09/2014 URINE CULTURE/ COLONY COUNT CPT-4: 68919 10/30/2013 URINALYSIS NONAUTO W/O SCOPE CPT-4: 10704 10/21/2013 URINE CULTURE/ COLONY COUNT CPT-4: 02887 10/21/2013 DESTRUCT PREMALG LESION (Cryosurgery) CPT-4: 65683 PRESCRIP TRANSMIT VIA ERX SY CPT-4: G8553 10/05/2013 URINALYSIS NONAUTO W/O SCOPE CPT-4: 99652 08/04/2013 URINE CULTURE/ COLONY COUNT CPT-4: 31873 08/04/2013 PRESCRIP TRANSMIT VIA ERX SY CPT-4: G8553 08/04/2013 THER/PROPH/DIAG INJ SC/IM CPT-4: 34905 07/13/2013 TRIAMCINOLONE ACET INJ NOS CPT-4: J3301 07/13/2013 PRESCRIP TRANSMIT VIA ERX SY CPT-4: G8553 05/27/2013 URINALYSIS NONAUTO W/O SCOPE CPT-4: 06004 05/25/2013 URINE CULTURE/ COLONY COUNT CPT-4: 04912 05/25/2013 THER/PROPH/DIAG INJ SC/IM CPT-4: 52593 05/04/2013 VITAMIN B12 INJECTION CPT-4: J3420 05/04/2013 THER/PROPH/DIAG INJ SC/IM CPT-4: 37674 04/17/2013 VITAMIN B12 INJECTION CPT-4: J3420 04/17/2013 THER/PROPH/DIAG INJ SC/IM CPT-4: 14945 04/17/2013 METHYLPREDNISOLONE 40 MG INJ CPT-4: J1030 04/17/2013 TRIAMCINOLONE ACET INJ NOS CPT-4: J3301 04/17/2013 URINALYSIS NONAUTO W/O SCOPE CPT-4: 51417 04/06/2013 URINE CULTURE/ COLONY COUNT CPT-4: 90911 04/06/2013 PRESCRIP TRANSMIT VIA ERX SY CPT-4: G8553 04/06/2013 KETOROLAC TROMETHAMINE INJ CPT-4: J1885 06/25/2012 PROMETHAZINE HCL INJECTION CPT-4: J2550 06/25/2012 THER/PROPH/DIAG INJ SC/IM CPT-4: 41440 06/25/2012 THER/PROPH/DIAG INJ SC/IM CPT-4: 98166 06/24/2012 METHYLPREDNISOLONE 40 MG INJ CPT-4: J1030 06/24/2012 TRIAMCINOLONE ACET INJ NOS CPT-4: J3301 06/24/2012 URINE CULTURE/ COLONY COUNT CPT-4: 32565 06/24/2012 THER/PROPH/DIAG INJ SC/IM CPT-4: 77312 05/20/2012 KETOROLAC TROMETHAMINE INJ CPT-4: J1885 05/20/2012 THER/PROPH/DIAG INJ SC/IM CPT-4: 11076 05/20/2012 PROMETHAZINE HCL INJECTION CPT-4: J2550 05/20/2012 DRAIN/INJECT JOINT/BURSA CPT-4: 41483 02/13/2012 METHYLPREDNISOLONE 40 MG INJ CPT-4: J1030 02/13/2012 TRIAMCINOLONE ACET INJ NOS CPT-4: J3301 02/13/2012 THER/PROPH/DIAG INJ SC/IM CPT-4: 83944 11/14/2011 METHYLPREDNISOLONE 40 MG INJ CPT-4: J1030 11/14/2011 TRIAMCINOLONE ACET INJ NOS CPT-4: J3301 11/14/2011 THER/PROPH/DIAG INJ SC/IM CPT-4: 16188 09/12/2011 KETOROLAC TROMETHAMINE INJ CPT-4: J1885 09/12/2011 THER/PROPH/DIAG INJ SC/IM CPT-4: 64780 08/09/2011 METHYLPREDNISOLONE 40 MG INJ CPT-4: J1030 08/09/2011 TRIAMCINOLONE ACET INJ NOS CPT-4: J3301 08/09/2011 URINE CULTURE/ COLONY COUNT CPT-4: 17641 07/03/2011 URINE CULTURE/ COLONY COUNT CPT-4: 31457 06/04/2011 THER/PROPH/DIAG INJ SC/IM CPT-4: 97216 05/03/2011 METHYLPREDNISOLONE 40 MG INJ CPT-4: J1030 05/03/2011 TRIAMCINOLONE ACET INJ NOS CPT-4: J3301 05/03/2011 URINALYSIS NONAUTO W/O SCOPE CPT-4: 43729 01/24/2011 URINE CULTURE/ COLONY COUNT CPT-4: 38225 01/24/2011 FLUZONE, 5ML (Medicare) CPT-4: Q2038 01/02/2011 ADMIN INFLUENZA VIRUS VAC CPT-4: G0008 01/02/2011 ASSAY, GLUCOSE, BLOOD QUANT CPT-4: 07303 12/07/2010 URINE CULTURE/ COLONY COUNT CPT-4: 45317 11/02/2010 THER/PROPH/DIAG INJ SC/IM CPT-4: 35806 10/18/2010 METHYLPREDNISOLONE 40 MG INJ CPT-4: J1030 10/18/2010 TRIAMCINOLONE ACET INJ NOS CPT-4: J3301 10/18/2010 TRIAMCINOLONE ACET INJ NOS CPT-4: J3301 05/11/2010 METHYLPREDNISOLONE 40 MG INJ CPT-4: J1030 05/11/2010 THER/PROPH/DIAG INJ SC/IM CPT-4: 15401 05/11/2010 TRIAMCINOLONE ACET INJ NOS CPT-4: J3301 02/09/2010 METHYLPREDNISOLONE 40 MG INJ CPT-4: J1030 02/09/2010 THER/PROPH/DIAG INJ SC/IM CPT-4: 62559 02/09/2010 SERVICE REQUIRED FOR PMD CPT-4: G0372 02/09/2010 FLU VACCINE 3 YRS & > IM UP 64 CPT-4: 85161 0 PNEUMOCOCCAL VACC 23 RANDALL IM CPT-4: 33687 12/07/2009 ADMIN INFLUENZA VIRUS VAC CPT-4: G0008 12/07/2009 ADMIN PNEUMOCOCCAL VACCINE CPT-4: G0009 12/07/2009 TRIAMCINOLONE ACET INJ NOS CPT-4: J3301 05/26/2009 THER/PROPH/DIAG INJ SC/IM CPT-4: 77854 05/26/2009 METHYLPREDNISOLONE 80 MG INJ CPT-4: J1040 [...] 1: 114/72 Code: 8480-6 BMI: 37.8 Code: 57260-9 Heart Rate 1: 72 bpm Height: 5'3" [...] 1: 106/68 Code: 8480-6 BMI: 35.7 Code: 96518-1 Heart Rate 1: 72 bpm Height: 5'4" Respiratory Rate: 20 bpm SpO2: 98% Tempera ture: 36.7 (C) / 98.0 (F) Weight: 208 lbs 04/16/2018 Blood Pressure 1: 132/82 Code: 8480-6 BMI: 37.9 Code: 79160-1 Heart Rate 1: 72 bpm Height: 5'4" Respiratory Rate: 20 bpm SpO2: 96% Tempera ture: 37.1 (C) / 98.8 (F) Weight: 221 lbs 04/01/2018 Blood Pressure 1: 150/90 Code: 8480-6 Heart Rate 1: 72 bpm Respiratory Rate: 22 bpm SpO2: 95% Temperature: 36.4 (C) / 97.6 (F) We ight: 216 lbs 03/06/2018 Blood Pressure 1: 126/78 Code: 8480-6 BMI: 37.4 Code: 97437-1 Heart Rate 1: 68 bpm Height: 5'4" [...] ight: 222 lbs 12/25/2017 BMI: 37.8 Code: 07981-3 Heart Rate 1: 76 bpm Height: 5 '4" Respiratory Rate: 20 bpm SpO2: 96% Temperature: 37.3 (C) / 99.2 (F) Weight: 220 lbs 12/17/2017 Blood Pressure 1: 132/78 Code: 8480-6 BMI: 37.2 Code: 98565-0 Heart Rate 1: 88 bpm Height: 5'4" Respiratory Rate: 20 bpm SpO2: 96% Tempera ture: 37.3 (C) / 99.2 (F) Weight: 217 lbs 10/30/2017 Blood Pressure 1: 114/68 Code: 8480-6 BMI: 36.4 Code: 50628-9 Heart Rate 1: 72 bpm Height: 5'4" Respiratory Rate: 22 bpm SpO2: 96% Tempera ture: 36.8 (C) / 98.2 (F) Weight: 212 lbs 10/23/2017 Blood Pressure 1: 124/78 Code: 8480-6 Heart Rate 1: 72 bpm Respiratory Rate: 24 bpm SpO2: 94% Temperature: 36.6 (C) / 97.9 (F) We ight: 212 lbs 09/17/2017 Blood Pressure 1: 128/82 Code: 8480-6 BMI: 37.4 Code: 95997-7 Heart Rate 1: 72 bpm Height: 5'4" Respiratory Rate: 20 bpm SpO2: 96% Tempera ture: 37.0 (C) / 98.6 (F) Weight: 218 lbs 07/19/2017 Blood Pressure 1: 136/84 Code: 8480-6 BMI: 36.6 Code: 74134-2 Heart Rate 1: 88 bpm Height: 5'4" Respiratory Rate: 20 bpm SpO2: 97% Tempera ture: 36.7 (C) / 98.0 (F) Weight: 213 lbs 05/29/2017 Blood Pressure 1: 136/82 Code: 8480-6 BMI: 36.7 Code: 90910-1 Heart Rate 1: 72 bpm Height: 5'4" Respiratory Rate: 20 bpm SpO2: 97% Tempera ture: 36.9 (C) / 98.4 (F) Weight: 214 lbs 05/07/2017 Blood Pressure 1: 122/80 Code: 8480-6 BMI: 37.1 Code: 47575-1 Heart Rate 1: 80 bpm Height: 5'4" Respiratory Rate: 24 bpm SpO2: 96% Tempera ture: 36.1 (C) / 97.0 (F) Weight: 216 lbs 03/18/2017 BMI: 36.7 Code: 17781-7 Heart Rate 1: 80 bpm Height: 5 '4" Respiratory Rate: 22 bpm SpO2: 95% Temperature: 36.9 (C) / 98.4 (F) Weight: 214 lbs 02/27/2017 Blood Pressure 1: 146/94 Code: 8480-6 BMI: 36.6 Code: 81813-9 Heart Rate 1: 76 bpm Height: 5'4" Respiratory Rate: 22 bpm SpO2: 97% Tempera ture: 36.6 (C) / 97.9 (F) Weight: 213 lbs 02/22/2017 Blood Pressure 1: 126/90 Code: 8480-6 BMI: 36.4 Code: 08676-3 Heart Rate 1: 84 bpm Height: 5'4" Respiratory Rate: 22 bpm SpO2: 95% Tempera ture: 36.9 (C) / 98.4 (F) Weight: 212 lbs 01/23/2017 Blood Pressure 1: 146/82 Code: 8480-6 BMI: 37.6 Code: 96066-2 Heart Rate 1: 96 bpm Height: 5'4" Respiratory Rate: 20 bpm SpO2: 96% Tempera ture: 36.9 (C) / 98.4 (F) Weight: 219 lbs 12/20/2016 Blood Pressure 1: 126/70 Code: 8480-6 BMI: 37.2 Code: 55211-5 Heart Rate 1: 76 bpm Height: 5'4" Respiratory Rate: 22 bpm SpO2: 95% Tempera ture: 36.6 (C) / 97.8 (F) Weight: 217 lbs 10/08/2016 Blood Pressure 1: 128/82 Code: 8480-6 BMI: 36.9 Code: 14117-4 Heart Rate 1: 76 bpm Height: 5'4" Respiratory Rate: 20 bpm SpO2: 95% Tempera ture: 37.0 (C) / 98.6 (F) Weight: 215 lbs 09/19/2016 Blood Pressure 1: 144/78 Code: 8480-6 BMI: 37.8 Code: 09760-9 Heart Rate 1: 76 bpm Height: 5'4" Respiratory Rate: 22 bpm SpO2: 95% Tempera ture: 37.0 (C) / 98.6 (F) Weight: 220 lbs 08/20/2016 Blood Pressure 1: 140/86 Code: 8480-6 BMI: 37.4 Code: 02910-1 Heart Rate 1: 80 bpm Height: 5'4" Respiratory Rate: 20 bpm SpO2: 95% Tempera ture: 36.9 (C) / 98.4 (F) Weight: 218 lbs 06/19/2016 Blood Pressure 1: 124/78 Code: 8480-6 BMI: 37.8 Code: 39921-4 Heart Rate 1: 74 bpm Height: 5'4" Respiratory Rate: 24 bpm SpO2: 96% Tempera ture: 36.9 (C) / 98.4 (F) Weight: 220 lbs 06/04/2016 Blood Pressure 1: 12478 Code: 8480-6 BMI: 38.8 Code: 79362-2 Heart Rate 1: 72 bpm Height: 5'4" Respiratory Rate: 24 bpm SpO2: 95% Tempera ture: 36.8 (C) / 98.2 (F) Weight: 226 lbs 05/02/2016 Blood Pressure 1: 136/90 Code: 8480-6 BMI: 37.6 Code: 13921-9 Heart Rate 1: 72 bpm Height: 5'4" Respiratory Rate: 24 bpm SpO2: 96% Tempera ture: 36.9 (C) / 98.4 (F) Weight: 219 lbs 04/03/2016 Blood Pressure 1: 126/78 Code: 8480-6 BMI: 38.1 Code: 51585-7 Heart Rate 1: 72 bpm Height: 5'4" Respiratory Rate: 22 bpm SpO2: 94% Tempera ture: 36.9 (C) / 98.4 (F) Weight: 222 lbs 02/29/2016 Blood Pressure 1: 132/78 Code: 8480-6 Heart Rate 1: 78 bpm Height: Respiratory Rate: 24 bpm SpO2: 95% Temperature: 36.4 (C) / 97.6 (F) We ight: 02/02/2016 Blood Pressure 1: 124/78 Code: 8480-6 BMI: 37.6 Code: 66291-2 Heart Rate 1: 76 bpm Height: 5'4" Respiratory Rate: 20 bpm SpO2: 95% Tempera ture: 36.8 (C) / 98.2 (F) Weight: 219 lbs 01/05/2016 Blood Pressure 1: 126/70 Code: 8480-6 BMI: 37.1 Code: 55235-7 Heart Rate 1: 76 bpm Height: 5'4" Respiratory Rate: 20 bpm Temperature: 36 .6 (C) / 97.8 (F) Weight: 216 lbs 12/05/2015 Blood Pressure 1: 126/72 Code: 8480-6 BMI: 36.9 Code: 42206-1 Heart Rate 1: 92 bpm Height: 5'4" Respiratory Rate: 20 bpm Temperature: 36 .7 (C) / 98.1 (F) Weight: 215 lbs 10/26/2015 Blood Pressure 1: 142/80 Code: 8480-6 BMI: 36.4 Code: 58237-2 Heart Rate 1: 82 bpm Height: 5'4" Respiratory Rate: 24 bpm SpO2: 92% Tempera ture: 35.9 (C) / 96.7 (F) Weight: 212 lbs 10/05/2015 Blood Pressure 1: 136/82 Code: 8480-6 Heart Rate 1: 80 bpm Respiratory Rate: 18 bpm SpO2: 98% Temperature: 35.7 (C) / 96.3 (F) We ight: 214 lbs 09/15/2015 Blood Pressure 1: 116/80 Code: 8480-6 BMI: 34.6 Code: 90629-5 Heart Rate 1: 76 bpm Height: 5'6" Respiratory Rate: 20 bpm Temperature: 36 .6 (C) / 97.9 (F) Weight: 211 lbs 08/24/2015 Blood Pressure 1: 124/80 Code: 8480-6 BMI: 34.1 Code: 54474-2 Heart Rate 1: 68 bpm Height: 5'6" Respiratory Rate: 20 bpm Temperature: 36 .8 (C) / 98.3 (F) Weight: 208 lbs 07/05/2015 Blood Pressure 1: 114/78 Code: 8480-6 BMI: 33.9 Code: 73547-2 Heart Rate 1: 80 bpm Height: 5'6" Respiratory Rate: 20 bpm Temperature: 36 .6 (C) / 97.9 (F) Weight: 207 lbs 06/06/2015 Blood Pressure 1: 122/78 Code: 8480-6 BMI: 34.1 Code: 61874-5 Heart Rate 1: 76 bpm Height: 5'6" Respiratory Rate: 24 bpm SpO2: 96% Tempera ture: 36.4 (C) / 97.6 (F) Weight: 208 lbs 05/23/2015 Blood Pressure 1: 124/78 Code: 8480-6 Heart Rate 1: 76 bpm Respiratory Rate: 24 bpm SpO2: 93% Temperature: 36.8 (C) / 98.2 (F) We ight: 212 lbs 05/05/2015 Blood Pressure 1: 136/80 Code: 8480-6 BMI: 35.4 Code: 09258-3 Heart Rate 1: 76 bpm Height: 5'6" Respiratory Rate: 28 bpm Temperature: 37 .0 (C) / 98.6 (F) Weight: 216 lbs 03/30/2015 Blood Pressure 1: 132/86 Code: 8480-6 BMI: 35.2 Code: 98588-9 Heart Rate 1: 84 bpm Height: 5'6" Respiratory Rate: 24 bpm Temperature: 36 .7 (C) / 98.0 (F) Weight: 215 lbs 02/03/2015 Blood Pressure 1: 122/74 Code: 8480-6 BMI: 35.7 Code: 87041-0 Heart Rate 1: 84 bpm Height: 5'6" Respiratory Rate: 20 bpm Temperature: 36 .9 (C) / 98.5 (F) Weight: 218 lbs 12/29/2014 Blood Pressure 1: 132/80 Code: 8480-6 BMI: 35.1 Code: 41478-8 Heart Rate 1: 80 bpm Height: 5'6" Respiratory Rate: 20 bpm Temperature: 36 .6 (C) / 97.8 (F) Weight: 214 lbs 09/02/2014 Blood Pressure 1: 128/92 Code: 8480-6 BMI: 34.7 Code: 65609-2 Heart Rate 1: 84 bpm Height: 5'6" Respiratory Rate: 26 bpm Temperature: 36 .8 (C) / 98.2 (F) Weight: 212 lbs 08/25/2014 Blood Pressure 1: 124/80 Code: 8480-6 BMI: 34.7 Code: 05394-0 Heart Rate 1: 78 bpm Height: 5'6" Respiratory Rate: 22 bpm SpO2: 97% Tempera ture: 36.6 (C) / 97.8 (F) Weight: 212 lbs 04/01/2014 Blood Pressure 1: 142/84 Code: 8480-6 BMI: 34.4 Code: 89463-3 Heart Rate 1: 74 bpm Height: 5'5" Respiratory Rate: 20 bpm Temperature: 36 .4 (C) / 97.6 (F) Weight: 207 lbs 03/16/2014 Blood Pressure 1: 142/90 Code: 8480-6 BMI: 34.6 Code: 79770-9 Heart Rate 1: 76 bpm Height: 5'5" Respiratory Rate: 24 bpm Temperature: 36 .5 (C) / 97.7 (F) Weight: 208 lbs 03/09/2014 Blood Pressure 1: 116/70 Code: 8480-6 BMI: 35.3 Code: 59771-4 Heart Rate 1: 72 bpm Height: 5'5" [...] 1: 128/86 Code: 8480-6 BMI: 34.3 Code: 96163-0 Heart Rate 1: 84 bpm Height: 5'5" Respiratory Rate: 20 bpm Temperature: 36 .7 (C) / 98.0 (F) Weight: 206 lbs 12/23/2013 Blood Pressure 1: 122/70 Code: 8480-6 BMI: 34.3 Code: 71507-7 Heart Rate 1: 68 bpm Height: 5'5" Respiratory Rate: 20 bpm Temperature: 36 .8 (C) / 98.2 (F) Weight: 206 lbs 10/05/2013 Blood Pressure 1: 118/76 Code: 8480-6 BMI: 34.1 Code: 53086-9 Heart Rate 1: 68 bpm Height: 5'5" Respiratory Rate: 20 bpm SpO2: 98% Tempera ture: 36.6 (C) / 97.9 (F) Weight: 205 lbs 08/04/2013 Blood Pressure 1: 126/82 Code: 8480-6 BMI: 33.3 Code: 46330-3 Heart Rate 1: 76 bpm Height: 5'5" Respiratory Rate: 20 bpm Temperature: 36 .8 (C) / 98.2 (F) Weight: 200 lbs 07/03/2013 Blood Pressure 1: 124/82 Code: 8480-6 BMI: 33.3 Code: 88484-2 Heart Rate 1: 72 bpm Height: 5'5" Respiratory Rate: 22 bpm Temperature: 36 .1 (C) / 97.0 (F) Weight: 200 lbs 05/27/2013 Blood Pressure 1: 126/82 Code: 8480-6 Heart Rate 1: 74 bpm Respiratory Rate: 20 bpm Temperature: 36.0 (C) / 96.8 (F) Weight: 199 lbs 04/06/2013 Blood Pressure 1: 118/80 Code: 8480-6 BMI: 35.2 Code: 93585-8 Heart Rate 1: 80 bpm Height: 5'4" Respiratory Rate: 20 bpm Temperature: 37 .4 (C) / 99.3 (F) Weight: 205 lbs 11/10/2012 Blood Pressure 1: 128/82 Code: 8480-6 Heart Rate 1: 84 bpm Respiratory Rate: 20 bpm Temperature: 36.7 (C) / 98.0 (F) Weight: 199 lbs 09/02/2012 Blood Pressure 1: 116/82 Code: 8480-6 BMI: 34.2 Code: 26833-5 Heart Rate 1: 88 bpm Height: 5'4" Respiratory Rate: 22 bpm Temperature: 36 .6 (C) / 97.8 (F) Weight: 199 lbs 08/04/2012 Blood Pressure 1: 128/74 Code: 8480-6 BMI: 34.0 Code: 30038-0 Heart Rate 1: 92 bpm Height: 5'4" Respiratory Rate: 20 bpm Temperature: 36 .4 (C) / 97.5 (F) Weight: 198 lbs 07/21/2012 Blood Pressure 1: 124/86 Code: 8480-6 Heart Rate 1: 116 bpm Respiratory Rate: 24 bpm Temperature: 36.8 (C) / 98.2 (F) 07/02/2012 Blood Pressure 1: 116/88 Code: 8480-6 BMI: 33.6 Code: 90709-3 Heart Rate 1: 76 bpm Height: 5'4" Respiratory Rate: 20 bpm Temperature: 36 .8 (C) / 98.3 (F) Weight: 196 lbs 06/24/2012 Blood Pressure 1: 124/80 Code: 8480-6 BMI: 34.3 Code: 54798-1 Heart Rate 1: 72 bpm Height: 5'4" SpO2: 96% Temperature: 36.3 (C) / 97.3 (F) Weight: 200 lbs 05/20/2012 Blood Pressure 1: 116/88 Code: 8480-6 BMI: 33.8 Code: 77257-4 Heart Rate 1: 80 bpm Height: 5'4" Respiratory Rate: 22 bpm Temperature: 36 .9 (C) / 98.4 (F) Weight: 197 lbs 05/08/2012 Blood Pressure 1: 128/86 Code: 8480-6 BMI: 33.8 Code: 10510-6 Heart Rate 1: 76 bpm Height: 5'4" Respiratory Rate: 26 bpm SpO2: 95% Tempera ture: 36.1 (C) / 97.0 (F) Weight: 197 lbs 04/22/2012 Blood Pressure 1: 106/64 Code: 8480-6 BMI: 33.8 Code: 64078-3 Heart Rate 1: 70 bpm Height: 5'4" Temperature: 36.1 (C) / 97.0 (F) Weight: 197 lbs 02/13/2012 Blood Pressure 1: 126/82 Code: 8480-6 BMI: 34.7 Code: 65629-5 Heart Rate 1: 64 bpm Height: 5'4" Respiratory Rate: 20 bpm Temperature: 36 .6 (C) / 97.8 (F) Weight: 202 lbs 01/28/2012 Blood Pressure 1: 116/80 Code: 8480-6 BMI: 34.7 Code: 70369-6 Heart Rate 1: 76 bpm Height: 5'4" Respiratory Rate: 20 bpm Temperature: 36 .8 (C) / 98.3 (F) Weight: 202 lbs 12/26/2011 Blood Pressure 1: 132/82 Code: 8480-6 BMI: 36.0 Code: 38756-8 Heart Rate 1: 68 bpm Height: 5'4" Respiratory Rate: 22 bpm Temperature: 36 .7 (C) / 98.0 (F) Weight: 210 lbs 11/14/2011 Blood Pressure 1: 124/80 Code: 8480-6 BMI: 36.4 Code: 45206-2 Heart Rate 1: 76 bpm Height: 5'4" Respiratory Rate: 20 bpm Temperature: 36 .8 (C) / 98.2 (F) Weight: 212 lbs 09/12/2011 Blood Pressure 1: 108/74 Code: 8480-6 BMI: 37.1 Code: 31362-8 Heart Rate 1: 72 bpm Height: 5'4" Respiratory Rate: 20 bpm Temperature: 37 .0 (C) / 98.6 (F) Weight: 216 lbs 08/15/2011 Blood Pressure 1: 122/80 Code: 8480-6 BMI: 36.9 Code: 94017-1 Heart Rate 1: 76 bpm Height: 5'4" Respiratory Rate: 20 bpm Temperature: 36 .2 (C) / 97.1 (F) Weight: 215 lbs 08/09/2011 Blood Pressure 1: 112/78 Code: 8480-6 BMI: 36.9 Code: 15251-0 Heart Rate 1: 68 bpm Height: 5'4" Respiratory Rate: 20 bpm Temperature: 36 .7 (C) / 98.0 (F) Weight: 215 lbs 07/03/2011 Blood Pressure 1: 140/94 Code: 8480-6 BMI: 36.2 Code: 27297-5 Heart Rate 1: 68 bpm Height: 5'4" Temperature: 36.0 (C) / 96.8 (F) Weight: 211 lbs 06/04/2011 Blood Pressure 1: 124/70 Code: 8480-6 BMI: 36.7 Code: 39143-9 Heart Rate 1: 68 bpm Height: 5'4" Respiratory Rate: 20 bpm Temperature: 36 .6 (C) / 97.9 (F) Weight: 214 lbs 05/03/2011 Blood Pressure 1: 130/76 Code: 8480-6 BMI: 36.4 Code: 34557-5 Heart Rate 1: 74 bpm Height: 5'5" Temperature: 36.2 (C) / 97.2 (F) Weight: 219 lbs 04/05/2011 Blood Pressure 1: 124/86 Code: 8480-6 BMI: 35.9 Code: 74465-8 Heart Rate 1: 76 bpm Height: 5'6" Respiratory Rate: 22 bpm Temperature: 36 .3 (C) / 97.3 (F) Weight: 219 lbs 03/08/2011 Blood Pressure 1: 112/78 Code: 8480-6 BMI: 35.1 Code: 50976-7 Heart Rate 1: 80 bpm Height: 5'6" Respiratory Rate: 26 bpm Temperature: 36 .9 (C) / 98.4 (F) Weight: 214 lbs 01/24/2011 Blood Pressure 1: 110/82 Code: 8480-6 BMI: 35.6 Code: 49513-2 Heart Rate 1: 80 bpm Height: 5'6" Temperature: 36.1 (C) / 97.0 (F) Weight: 217 lbs 01/02/2011 Blood Pressure 1: 106/72 Code: 8480-6 BMI: 35.6 Code: 68799-8 Heart Rate 1: 76 bpm Height: 5'6" [...] 1: 120/74 Code: 8480-6 BMI: 35.9 Code: 43941-2 Heart Rate 1: 72 bpm Height: 5'5" Temperature: 36.3 (C) / 97.4 (F) Weight: 216 lbs 09/19/2010 Blood Pressure 1: 124/80 Code: 8480-6 BMI: 35.4 Code: 39602-0 Heart Rate 1: 76 bpm Height: 5'5" [...] 1: 122/78 Code: 8480-6 BMI: 37.4 Code: 79079-4 Heart Rate 1: 84 bpm Height: 5'5" [...] follow up 10/26/2015 ER visit from at [facility] for COPD Exacerbation follow up 10/05/2015 ER Visit gait abnormality 09/15/2015 Patient requesting kelly pineda paperwork to be filled out disturbances of thinking 08/24/2015 follow up 07/05/2015 4wk fwup follow up 06/06/2015 [facility] cough 05/23/2015 follow up 05/05/2015 dyspnea 03/30/2015 [facility] needs new orde r for O2 abdominal pain 02/03/2015 cyst 12/29/2014 vs abscess follow up 09/02/2014 [facility] headache 08/25/2014 facial drooping follow up [...] up 08/04/2012 2wk fwup follow up 07/21/2012 [facility]--Freem an sore throat 07/02/2012 headache 06/25/2012 [...] up 10/18/[address] Marcela sagastume w [facility], having increased allergy symptoms. Would like steroid [...] month f/u follow up 12/07/2009 from [facility], done with PT--finished about 2wks ago [...] K59.00] Pattie Floresjuan BRUNSON S. Emma WICK [employer] CPT-4: 51913 08/04/2019 ([id number]) OFFICE/OUTPATIENT VISIT EST Diagnosis: Inspiratory stridor[ICD10: R06.1] Diagnosis: Diarrhea[ICD10: R19.7] Belia Reid [facility] CPT-4: 9921 3 07/06/2019 ([id number]) OFFICE/OUTPATIENT VISIT EST Diagnosis: Left leg swelling[ICD10: M79.89] Diagnosis: Dyspnea[ICD10: R06.00] Belia Reid [facility] CPT-4: 9921 3 06/24/2019 ([id number]) OFFICE/OUTPATIENT VISIT EST Diagnosis: Acute bronchitis[ICD10: J20.9] Diagnosis: Colitis[ICD10: K52.9] [facility] [employer] CPT-4: 79500 06/16/2019 ([id number]) OFFICE/OUTPATIENT VISIT EST Diagnosis: Diarrhea[ICD10: R19.7] Diagnosis: Abdominal bloating[ICD10: R14.0] Belia Reid [facility] CPT- 4: 57433 06/08/2019 ([id number]) OFFICE/OUTPATIENT VISIT EST Diagnosis: Acute febrile illness[ICD10: R50.9] Diagnosis: Colitis[ICD10: K52.9] Belia Reid [facility] CPT-4: 24407 05/26/2019 ([id number]) OFFICE/OUTPATIENT VISIT EST Diagnosis: Chronic obstructive pulmonary disease, unspecified[ICD10: J44.9] Diagnosis: Pulmonary fibrosis[ICD10: J84.10] Diagnosis: Intermittent stridor[ICD10: R06.1] Diagnosis: Muscle weakness[ICD10: M62.81] Belia REID DO [facility] CPT-4: 37052 05/13/2019 ([id number]) OFFICE/OUTPATIENT VISIT EST Diagnosis: Stridor[ICD10: R06.1] Diagnosis: COUGH[ICD10: R05] Belia REID DO [facility] CPT-4: 06556 05/06/2019 ([id number]) OFFICE/OUTPATIENT VISIT EST Diagnosis: Stridor[ICD10: R06.1] Diagnosis: Muscle, jerky movements (uncontrolled)[ICD10: G25.5] Belia REID [employer] [facility] CPT-4: 95605 04/29/2019 ([id number]) OFFICE/OUTPATIENT VISIT EST Diagnosis: Upper respiratory infection[ICD10: J06.9] Diagnosis: Flank pain[ICD10: R10.9] Diagnosis: Weight gain[ICD10: R63.5] Pattie AMBRIZ [employer] [facility] CPT-4: 67377 04/16/2019 ([id number]) OFFICE/OUTPATIENT VISIT EST Diagnosis: Generalized pruritus[ICD10: L29.9] Belia REID [employer] [facility] CPT-4: 95135 04/08/2019 ([id number]) OFFICE/OUTPATIENT VISIT EST Diagnosis: Acute bursitis of left shoulder[ICD10: M75.52] Diagnosis: Cervicalgia[ICD10: M54.2] Diagnosis: Chest wall pain[ICD10: R07.89] Belia REID [employer] [facility] CPT-4: 03209 01/22/2019 ([id number]) OFFICE/OUTPATIENT VISIT EST Diagnosis: Abdominal pain[ICD10: R10.9] Diagnosis: Pyelonephritis[ICD10: N12] Pattie GORDILLO ALBERTO [employer] [facility] CPT-4: 53553 01/07/2019 ([id number]) OFFICE/OUTPATIENT VISIT EST Diagnosis: Low back pain[ICD10: M54.5] Diagnosis: Left lumbar radiculopathy[ICD10: M54.16] Diagnosis: Left flank pain[ICD10: R10.9] Diagnosis: Left lower quadrant pain[ICD10: R10.32] Diagnosis: FLU VACCINE[ICD10: Z23] Belia FREDERICK DO [facility] CPT-4: 19950 12/24/2018 ([id number]) OFFICE/OUTPATIENT VISIT EST Diagnosis: Migraine, unspecified, not intractable, without status migrainosus[ICD10: G43.909] Diagnosis: Fibromyalgia[ICD10: M79.7] Belia DOMINGUEZ [facility] CPT-4: 78060 11/20/2018 ([id number]) OFFICE/OUTPATIENT VISIT EST Diagnosis: Migraine, unspecified, intractable, without status migrainosus[ICD10: G43.919] Diagnosis: Acute sinusitis, unspecified[ICD10: J01.90] Pattie REID DO [facility] CPT-4: 20412 11/04/2018 ([id number]) OFFICE/OUTPATIENT VISIT EST Diagnosis: Pain in left wrist[ICD10: M25.532] Diagnosis: Other dorsalgia[ICD10: M54.89] Pattie REID DO [facility] CPT-4: 00827 09/08/2018 ([id number]) OFFICE/OUTPATIENT VISIT EST Diagnosis: Acute stress reaction[ICD10: F43.0] Diagnosis: Pruritus, unspecified[ICD10: L29.9] 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, 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] Belia REID [facility] CPT-4: 23771 08/20/2018 ([id number]) OFFICE/OUTPATIENT VISIT EST Diagnosis: Hypotension due to drugs[ICD10: I95.2] Diagnosis: Paroxysmal atrial fibrillation[ICD10: I48.0] Diagnosis: Localized edema[ICD10: R60.0] Belia REID DO [facility] CPT-4: 63155 06/19/2018 ([id number]) OFFICE/OUTPATIENT VISIT EST Diagnosis: Generalized hyperhidrosis[ICD10: R61] Diagnosis: Essential (primary) hypertension[ICD10: I10] Diagnosis: Supraventricular tachycardia[ICD10: I47.1] Belia REID DO [facility] CPT-4: 44529 06/09/2018 ([id number]) OFFICE/OUTPATIENT VISIT EST Diagnosis: Stridor[ICD10: R06.1] Diagnosis: Dependence on supplemental oxygen[ICD10: Z99.81] Diagnosis: Weakness[ICD10: R53.1] Diagnosis: Supraventricular tachycardia[ICD10: I47.1] Belia REID DO [facility] CPT-4: 43066 05/21/2018 ([id number]) OFFICE/OUTPATIENT VISIT EST Diagnosis: Cervical disc disorder with radiculopathy, unspecified cervical region[ICD10: M50.10] Belia REID [facility] CPT-4: 71000 04/16/2018 ([id number]) OFFICE/OUTPATIENT VISIT EST Diagnosis: Migraine, unspecified, intractable, without status migrainosus[ICD10: G43.919] Diagnosis: Fibromyalgia[ICD10: M79.7] Pattie DOMINGUEZ [employer] [facility] CPT-4: 32583 04/01/2018 ([id number]) NURSE/OUTPATIENT VISIT EST Diagnosis: Hematuria, unspecified[ICD10: R31.9] Diagnosis: Dysuria[ICD10: R30.0] Belia REID [employer] [facility] CPT-4: 51289 03/17/2018 ([id number]) OFFICE/OUTPATIENT VISIT EST Diagnosis: Erythema intertrigo[ICD10: L30.4] Diagnosis: Chronic obstructive pulmonary disease with (acute) exacerbation[ICD10: J44.1] Diagnosis: Type 2 diabetes mellitus with hyperglycemia[ICD10: E11.65] Belia REID [employer] [facility] CPT-4: 51025 03/06/2018 ([id number]) OFFICE/OUTPATIENT VISIT EST Diagnosis: Cervicalgia[ICD10: M54.2] Pattie AMBRIZ [employer] [facility] CPT-4: 74972 02/05/2018 ([id number]) OFFICE/OUTPATIENT VISIT EST Diagnosis: Candidiasis of skin and nail[ICD10: B37.2] Diagnosis: Cervicalgia[ICD10: M54.2] Pattie AMBRIZ [facility] CPT-4: 60000 01/20/2018 ([id number]) OFFICE/OUTPATIENT VISIT EST Diagnosis: Pain in thoracic spine[ICD10: M54.6] Diagnosis: Radiculopathy, thoracic region[ICD10: M54.14] [facility]: 46555 12/25/2017 ([id number]) OFFICE/OUTPATIENT VISIT EST Diagnosis: Pain in thoracic spine[ICD10: M54.6] Diagnosis: Other muscle spasm[ICD10: M62.838] Diagnosis: FLU VACCINE[ICD10: Z23] Diagnosis: PNEUMOCOCCAL VACCINE[ICD10: Z23] [facility] CPT-[facility]: 92531 12/17/2017 ([id number]) OFFICE/OUTPATIENT VISIT EST Diagnosis: Chronic obstructive pulmonary disease with (acute) exacerbation[ICD10: J44.1] Belia REID [facility] CPT- 4: 41530 10/30/2017 ([id number]) OFFICE/OUTPATIENT VISIT EST Diagnosis: Chronic obstructive pulmonary disease with acute lower respiratory infection[ICD10: J44.0] Diagnosis: Mild intermittent asthma with (acute) exacerbation[ICD10: J45.21] Belia REID [facility] CPT-4: 99334 10/23/2017 ([id number]) NURSE/OUTPATIENT VISIT EST Diagnosis: Migraine, unspecified, not intractable, without status migrainosus[ICD10: G43.909] Belia REID [facility] CPT - 4: 37535 08/26/2017 ([id number]) OFFICE/OUTPATIENT VISIT EST Diagnosis: Urinary tract infection, site not specified[ICD10: N39.0] Diagnosis: Encounter for screening for osteoporosis[ICD10: Z13.820] Diagnosis: Encounter for screening mammogram for malignant neoplasm of breast[ICD10: Z12.31] Diagnosis: Acute bronchitis, unspecified[ICD10: J20.9] Pattie REID DO [facility] CPT-4: 05151 07/19/2017 ([id number]) OFFICE/OUTPATIENT VISIT EST Diagnosis: Rash and other nonspecific skin eruption[ICD10: R21] Pattie REID DO [facility] CPT-4: 83262 05/29/2017 ([id number]) OFFICE/OUTPATIENT VISIT EST Diagnosis: Diarrhea, unspecified[ICD10: R19.7] Diagnosis: Tinea corporis[ICD10: B35.4] Diagnosis: Tinea cruris[ICD10: B35.6] Diagnosis: Migraine, unspecified, not intractable, without status migrainosus[ICD10: G43.909] Belia REID DO [facility] CPT - 4: 64797 05/07/2017 ([id number]) OFFICE/OUTPATIENT VISIT EST Diagnosis: Stridor[ICD10: R06.1] Diagnosis: Chronic obstructive pulmonary disease with (acute) exacerbation[ICD10: J44.1] Belia REID [facility] CPT- 4: 25441 03/18/2017 ([id number]) OFFICE/OUTPATIENT VISIT EST Diagnosis: Type 2 diabetes mellitus with hyperglycemia[ICD10: E11.65] Belia REID DO [facility] CPT-4: 33941 02/27/2017 OFFICE/OUTPATIENT VISIT EST Diagnosis: Type 2 diabetes mellitus with hyperglycemia[ICD10: E11.65] Pattie REID DO [facility] CPT-4: 86008 02/22/2017 ([id number]) OFFICE/OUTPATIENT VISIT EST Diagnosis: Urinary tract infection, site not specified[ICD10: N39.0] Diagnosis: Pneumonia, unspecified organism[ICD10: J18.9] Diagnosis: Type 2 diabetes mellitus with hyperglycemia[ICD10: E11.65] Belia REID [facility] CPT-4: 93073 01/23/2017 ([id number]) OFFICE/OUTPATIENT VISIT EST Diagnosis: Type 2 diabetes mellitus with hyperglycemia[ICD10: E11.65] Diagnosis: Localized edema[ICD10: R60.0] Diagnosis: PNEUMOCOCCAL VACCINE[ICD10: Z23] Diagnosis: FLU VACCINE[ICD10: Z23] Belia FREDERICK [facility] CPT-4: 96104 12/20/2016 OFFICE/OUTPATIENT VISIT EST Diagnosis: Pain in thoracic spine[ICD10: M54.6] Diagnosis: Low back pain[ICD10: M54.5] Diagnosis: Cervicalgia[ICD10: M54.2] Diagnosis: Cough[ICD10: R05] Celeste Ferreira BELIA REID [facility] CPT-4: 91118 10/08/2016 ([id number]) OFFICE/OUTPATIENT VISIT EST Diagnosis: Primary insomnia[ICD10: F51.01] Diagnosis: Migraine, unspecified, not intractable, without status migrainosus[ICD10: G43.909] Diagnosis: Type 2 diabetes mellitus with hyperglycemia[ICD10: E11.65] Belia REID [facility] CPT-4: 40565 09/19/2016 ([id number]) OFFICE/OUTPATIENT VISIT EST Diagnosis: Migraine, unspecified, not intractable, without status migrainosus[ICD10: G43.909] Diagnosis: Generalized abdominal pain[ICD10: R10.84] Diagnosis: Cough[ICD10: R05] Belia REID DO [facility] CPT-4: 05729 08/20/2016 ([id number]) OFFICE/OUTPATIENT VISIT EST Diagnosis: Chronic obstructive pulmonary disease, unspecified[ICD10: J44.9] Diagnosis: Stridor[ICD10: R06.1] Belia REID [facility] CPT-4: 71848 06/19/2016 ([id number]) OFFICE/OUTPATIENT VISIT EST Diagnosis: Chronic obstructive pulmonary disease, unspecified[ICD10: J44.9] Diagnosis: Personal history of urinary (tract) infections[ICD10: Z87.440] Belia REDI DO [facility] CPT-4: 80534 06/04/2016 ([id number]) OFFICE/OUTPATIENT VISIT EST Diagnosis: Stridor[ICD10: R06.1] Diagnosis: Chronic obstructive pulmonary disease with acute lower respiratory infection[ICD10: J44.0] Diagnosis: Other specified diseases of intestine[ICD10: K63.89] Diagnosis: Cystitis, unspecified without hematuria[ICD10: N30.90] Belia REID [employer] [facility] CPT-4: 90765 05/02/2016 ([id number]) OFFICE/OUTPATIENT VISIT EST Diagnosis: Fibromyalgia[ICD10: M79.7] Diagnosis: Urinary tract infection, site not specified[ICD10: N39.0] Belia REID DO [facility] CPT-4: 15183 04/03/2016 ([id number]) OFFICE/OUTPATIENT VISIT EST Diagnosis: Unspecified asthma, uncomplicated[ICD10: J45.909] Diagnosis: Cough[ICD10: R05] Lidia REID [employer] [facility] T-4: 43109 02/29/2016 ([id number]) OFFICE/OUTPATIENT VISIT EST Diagnosis: Migraine, unspecified, intractable, without status migrainosus[ICD10: G43.919] Diagnosis: Urinary tract infection, site not specified[ICD10: N39.0] Belia REID [employer] [facility] CPT-4: 09421 02/02/2016 ([id number]) OFFICE/OUTPATIENT VISIT EST Diagnosis: Urinary tract infection, site not specified[ICD10: N39.0] Diagnosis: Unspecified abdominal pain[ICD10: R10.9] Diagnosis: Pain in thoracic spine[ICD10: M54.6] Diagnosis: Type 2 diabetes mellitus with diabetic neuropathic arthropathy[ICD10: E11.610] Belia REID [employer] [facility] CPT-4: 21369 12/05/2015 ([id number]) OFFICE/OUTPATIENT VISIT EST Diagnosis: Chronic obstructive pulmonary disease with (acute) exacerbation[ICD10: J44.1] Diagnosis: Migraine, unspecified, not intractable, without status migrainosus[ICD10: G43.909] Lidia Jaiden CORNELLLINE Yuridia REID [employer] [facility] CPT -4: 89762 10/26/2015 ([id number]) OFFICE/OUTPATIENT VISIT EST Diagnosis: Hematuria, unspecified[ICD10: R31.9] Diagnosis: Urinary tract infection, site not specified[ICD10: N39.0] Lidia HSUQUELINE Yuridia REID [employer] [facility] CPT-4: 85435 10/05/2015 OFFICE/OUTPATIENT VISIT EST Diagnosis: Chronic obstructive pulmonary disease, unspecified[ICD10: J44.9] Diagnosis: Muscle weakness (generalized)[ICD10: M62.81] Diagnosis: Polyneuropathy, unspecified[ICD10: G62.9] Diagnosis: Other intervertebral disc degeneration, 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] Diagnosis: Fibromyalgia[ICD10: M79.7] Belia CORNELLLINE Yuridia DOMINGUEZ [facility] CPT-4: 32868 09/15/2015 ([id number]) OFFICE/OUTPATIENT VISIT EST Diagnosis: Disorientation, unspecified[ICD10: R41.0] Diagnosis: Headache[ICD10: R51] Diagnosis: Paresthesia of skin[ICD10: R20.2] Lidia CORNELLHERNANDEZ Paredes Yuridia REID [employer] [facility] CPT-4: 24084 08/24/2015 ([id number]) OFFICE/OUTPATIENT VISIT EST Diagnosis: Type 2 diabetes mellitus with hyperglycemia[ICD10: E11.65] Diagnosis: Chronic obstructive pulmonary disease with acute lower respiratory infection[ICD10: J44.0] Belia REID [employer] [facility] CPT-4: 97299 07/05/2015 ([id number]) OFFICE/OUTPATIENT VISIT EST Diagnosis: Mild intermittent asthma with (acute) exacerbation[ICD10: J45.21] Diagnosis: Chronic obstructive pulmonary disease, unspecified[ICD10: J44.9] Belia Zacharyisabellaannie CORNELLBELIA BushraMayda ANUSHKA [employer] [facility] CPT-4: 45010 06/06/2015 ([id number]) OFFICE/OUTPATIENT VISIT EST Diagnosis: Chronic obstructive pulmonary disease with (acute) exacerbation[ICD10: J44.1] Lidia HSUQUELINE BushraMayda ANUSHKA [employer] [facility] CPT- 4: 08818 05/23/2015 ([id number]) OFFICE/OUTPATIENT VISIT EST Diagnosis: Type 2 diabetes mellitus with hyperglycemia[ICD10: E11.65] Diagnosis: Functional dyspepsia[ICD10: K30] Belia Anushka CORNELLLINE Yuridia REID [employer] [facility] CPT-4: 25514 05/05/2015 ([id number]) OFFICE/OUTPATIENT VISIT EST Diagnosis: Type 2 diabetes mellitus with hyperglycemia[ICD10: E11.65] Diagnosis: Glycosuria[ICD10: R81] Diagnosis: Urinary tract infection, site not specified[ICD10: N39.0] Belia REID [facility] CPT-4: 52073 03/30/2015 ([id number]) OFFICE/OUTPATIENT VISIT EST Diagnosis: Generalized abdominal pain[ICD10: R10.84] Diagnosis: Diarrhea, unspecified[ICD10: R19.7] Diagnosis: Urinary tract infection, site not specified[ICD10: N39.0] Diagnosis: Gastro-esophageal reflux disease without esophagitis[ICD10: K21.9] Belia [facility] CPT-4: 36869 02/03/2015 ([id number]) OFFICE/OUTPATIENT VISIT EST Diagnosis: Other specified noninflammatory disorders of vagina[ICD10: N89.8] Diagnosis: Follicular disorder, unspecified[ICD10: L73.9] Diagnosis: Functional dyspepsia[ICD10: K30] Diagnosis: FLU VACCINE[ICD10: Z23] Belia [facility] CPT-4: 96637 12/29/2014 ([id number]) OFFICE/OUTPATIENT VISIT EST 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] Diagnosis: RESTLESS LEGS SYNDROME[ICD9: 333.94] Diagnosis: MIGRAINE NOS/NOT INTRCBL[ICD9: 346.90] Beliahanna Humphriesisabellaannie HSUFlorencio COKER Yuridia [facility] CPT-4: 65199 09/02/2014 ([id number]) OFFICE/OUTPATIENT VISIT EST Diagnosis: Cervical radiculopathy[ICD9: 723.4] Diagnosis: Cervicalgia[ICD9: 723.1] Diagnosis: Degenerative disc disease, cervical[ICD9: 722.4] 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I[ICD9: 250.00] Beliahanna [facility] CPT-4: 90209 04/01/2014 OFFICE/OUTPATIENT VISIT EST Diagnosis: Reactive airway disease[ICD9: 493.90] Belia Zacharyisabellaannie MINAL CALVO Yuridia [facility] CPT-4: 69101 03/16/2014 ([id number]) OFFICE/OUTPATIENT VISIT EST Diagnosis: BRONCHITIS, ACUTE[ICD9: 466.0] Diagnosis: Reactive airway disease[ICD9: 493.90] Belia REID DO [facility] CPT-4: 12015 03/09/2014 OFFICE/OUTPATIENT VISIT EST Diagnosis: BRONCHITIS, ACUTE[ICD9: 466.0] Diagnosis: WHEEZING[ICD9: 786.07] Huong Peguero [facility] CPT-4: 22374 03/03/2014 OFFICE/OUTPATIENT VISIT EST Diagnosis: BRONCHITIS, ACUTE[ICD9: 466.0] Diagnosis: WHEEZING[ICD9: 786.07] Huong Peguero [facility] CPT-4: 32806 03/01/2014 ([id number]) OFFICE/OUTPATIENT VISIT EST Diagnosis: GERD[ICD9: 530.81] Diagnosis: ARTHRALGIA-MULTIPLE SITES[ICD9: 719.49] Diagnosis: LUMB/LUMBOSAC DISC DEGEN[ICD9: 722.52] Diagnosis: - I - FIBROMYALGIA[ICD9: 729.1] Belia REID [facility] CPT-4: 85142 02/09/2014 ([id number]) OFFICE/OUTPATIENT VISIT EST Diagnosis: Peptic ulcer disease[ICD9: 533.90] Diagnosis: RESTLESS LEGS SYNDROME[ICD9: 333.94] Diagnosis: Neuropathy[ICD9: 355.9] Belia FREDERICK [facility] CPT-4: 90975 12/23/2013 ([id number]) OFFICE/OUTPATIENT VISIT EST Diagnosis: URINARY TRACT INFECTION[ICD9: 599.0] Belia REID [facility] CPT-4: 11013 10/30/2013 ([id number]) OFFICE/OUTPATIENT VISIT EST Diagnosis: Flank pain[ICD9: 789.00] Belia CORNELLLINE Yuridia POOLE [facility] CPT-4: 06359 10/21/2013 ([id number]) OFFICE/OUTPATIENT VISIT EST Diagnosis: INFLAMED SEBORR KERATOS[ICD9: 702.11] Diagnosis: Brachioradial pruritus[ICD9: 698.9] Diagnosis: ASTHMA NOS[ICD9: 493.90] Belia Zacharynilson BRUNSON BushraMayda KIESHA POOLE [employer] CPT-4: 04429 10/05/2013 ([id number]) OFFICE/OUTPATIENT VISIT EST Diagnosis: HYPERTENSION[ICD9: 401.9] Diagnosis: - I - FIBROMYALGIA[ICD9: 729.1] Diagnosis: DIZZINESS/VERTIGO[ICD9: 780.4] Diagnosis: MIGRAINE NOS/NOT INTRCBL[ICD9: 346.90] Diagnosis: Diabetic peripheral neuropathy[ICD9: 250.60] Diagnosis: Flank pain[ICD9: 789.00] Belia BRUNSON BushraMayda KIESHA POOLE [employer] CPT-4: 56539 08/04/2013 ([id number]) OFFICE/OUTPATIENT VISIT EST Diagnosis: ALLERGIC RHINITIS[ICD9: 477.9] Belia Zacharyisabellaannie BELIA Bushra Mayda ANUSHKA RUDOLPH [employer] CPT-4: 98274 07/13/2013 OFFICE/OUTPATIENT VISIT EST Diagnosis: URINARY TRACT INFECTION[ICD9: 599.0] Huong ARNOLD SMayda ANUSHKA [employer] [facility] CPT-4: 44156 07/03/2013 OFFICE/OUTPATIENT VISIT EST Diagnosis: HYPERTENSION[ICD9: 401.9] Diagnosis: URINARY TRACT INFECTION[ICD9: 599.0] Diagnosis: BACKACHE[ICD9: 724.5] Diagnosis: URINARY INCONTINENCE[ICD9: 788.30] Huong SALAZAR SMayda REID [employer] [facility] CPT-4: 80955 05/27/2013 ([id number]) OFFICE/OUTPATIENT VISIT EST Diagnosis: Flank pain[ICD9: 789.00] Belia BRUNSON BushraMayda KIESHA POOLE [employer] CPT-4: 69932 05/25/2013 ([id number]) OFFICE/OUTPATIENT VISIT EST Diagnosis: B-COMPLEX DEFIC NEC[ICD9: 266.2] Belia BRUNSON BushraMayda ANUSHKA RUDOLPH [employer] CPT-4: 39284 05/04/2013 ([id number]) OFFICE/OUTPATIENT VISIT EST Diagnosis: ALLERGIC RHINITIS[ICD9: 477.9] Diagnosis: Vitamin B12 deficiency[ICD9: 266.2] Belia THOMPSON Yuridia REID [facility] CPT-4: 50811 04/17/2013 ([id number]) OFFICE/OUTPATIENT VISIT EST 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I[ICD9: 250.00] Diagnosis: URINARY TRACT INFECTION[ICD9: 599.0] Diagnosis: DIZZINESS/VERTIGO[ICD9: 780.4] Diagnosis: DIARRHEA[ICD9: 787.91] Belia BRUNSON BushraMayda RALF Peguero [facility] CPT-4: 41299 04/06/2013 ([id number]) OFFICE/OUTPATIENT VISIT EST Diagnosis: URINARY TRACT INFECTION[ICD9: 599.0] Diagnosis: URINARY RETENTION[ICD9: 788.20] Beliahanna BRUNSON BushraMayda ANUSHKA [facility] CPT-4: 18527 11/10/2012 ([id number]) OFFICE/OUTPATIENT VISIT EST Diagnosis: TACHYCARDIA[ICD9: 785.0] Diagnosis: SYNCOPE AND COLLAPSE[ICD9: 780.2] Diagnosis: CONSCIOUSNS ALTERAT NEC[ICD9: 780.09] Belia CALVO BushraMayda ANUSHKA [facility] CPT-4: 59063 09/02/2012 OFFICE/OUTPATIENT VISIT EST Diagnosis: TACHYCARDIA[ICD9: 785.0] Diagnosis: SYNCOPE AND COLLAPSE[ICD9: 780.2] Belia Paredes BushraMayda ANUSHKA [facility] CPT-4: 84295 08/04/2012 ([id number]) OFFICE/OUTPATIENT VISIT EST Diagnosis: Loss of consciousness[ICD9: 780.09] Diagnosis: Tachycardia[ICD9: 785.0] Diagnosis: MALAISE AND FATIGUE[ICD9: 780.79] Belia Paredes BushraMayda ANUSHKA [facility] CPT-4: 28179 07/21/2012 ([id number]) OFFICE/OUTPATIENT VISIT EST Diagnosis: BRONCHITIS, ACUTE[ICD9: 466.0] Diagnosis: ASTHMA NOS[ICD9: 493.90] Belia BRUNSON BushraMayda KIESHA VIRGILIO [facility] CPT-4: 71436 07/02/2012 ([id number]) OFFICE/OUTPATIENT VISIT EST Diagnosis: CEPHALGIA[ICD9: 784.0] Belia BRUNSON BushraMayda ZACHARYANT Peguero [facility] CPT-4: 96284 06/25/2012 ([id number]) OFFICE/OUTPATIENT VISIT EST Diagnosis: GERD[ICD9: 530.81] Diagnosis: DIARRHEA[ICD9: 787.91] Diagnosis: URINARY TRACT INFECTION[ICD9: 599.0] Diagnosis: ASTHMA NOS[ICD9: 493.90] Diagnosis: ALLERGIC RHINITIS[ICD9: 477.9] Belia HSUQUELINE Bushra Mayda ANUSHKA [facility] CPT-4: 74131 06/24/2012 ([id number]) OFFICE/OUTPATIENT VISIT EST Diagnosis: MIGRAINE NOS/NOT INTRCBL[ICD9: 346.90] Diagnosis: TREMOR NEC[ICD9: 333.1] Diagnosis: CHRONIC PAIN SYNDROME[ICD9: 338.4] Belia Zacharynilson SALAZAR BushraMayda LUIS [employer] [facility] CPT-4: 87919 05/20/2012 ([id number]) OFFICE/OUTPATIENT VISIT EST Diagnosis: DIZZINESS/VERTIGO[ICD9: 780.4] Diagnosis: PALPITATIONS[ICD9: 785.1] Diagnosis: TREMOR NEC[ICD9: 333.1] Diagnosis: ANXIETY STATE NOS[ICD9: 300.00] Diagnosis: POSTTRAUMATIC STRESS DISORDER[ICD9: 309.81] Belia CORNELLLINE BushraMayda LUIS [employer] [facility] CPT-4: 85799 05/08/2012 ([id number]) OFFICE/OUTPATIENT VISIT EST Diagnosis: MIGRAINE NOS/NOT INTRCBL[ICD9: 346.90] Diagnosis: FIBROMYALGIA[ICD9: 729.1] Diagnosis: SYNCOPE AND COLLAPSE[ICD9: 780.2] Diagnosis: Diabetic peripheral neuropathy[ICD9: 250.60] Belia Humphriesisabellaannie BELIA BushraMayda LUIS [employer] [facility] CPT-4: 50696 04/22/2012 OFFICE/OUTPATIENT VISIT EST Diagnosis: ROTATOR CUFF DIS NEC[ICD9: 726.19] Diagnosis: JOINT PAIN-SHLDER[ICD9: 719.41] Diagnosis: DYSPEPSIA[ICD9: 536.8] Belia Zacharynilson BELIA BushraMayda RALF [employer] [facility] CPT-4: 01591 02/13/2012 ([id number]) OFFICE/OUTPATIENT VISIT EST Diagnosis: MIGRAINE NOS/NOT INTRCBL[ICD9: 346.90] Diagnosis: GERD[ICD9: 530.81] Diagnosis: DYSPEPSIA[ICD9: 536.8] Belia TomlinsonMayda RALF Peguero [facility] CPT-4: 02487 01/28/2012 OFFICE/OUTPATIENT VISIT EST Diagnosis: CEPHALGIA[ICD9: 784.0] Diagnosis: MIGRAINE NOS/NOT INTRCBL[ICD9: 346.90] Diagnosis: GERD[ICD9: 530.81] Diagnosis: INSOMNIA NOS[ICD9: 780.52] Belia CORNELLLINE Yuridia DOMINGUEZ [facility] CPT-4: 87033 12/26/2011 ([id number]) OFFICE/OUTPATIENT VISIT EST Diagnosis: CEPHALGIA[ICD9: 784.0] Diagnosis: MIGRAINE NOS/NOT INTRCBL[ICD9: 346.90] Diagnosis: MALAISE AND FATIGUE[ICD9: 780.79] Diagnosis: FIBROMYALGIA[ICD9: 729.1] Diagnosis: ALLERGIC RHINITIS[ICD9: 477.9] Belia Humphriesisabellaannie HSUBELIA Bushra Mayda [facility]: 29907 11/14/2011 ([id number]) OFFICE/OUTPATIENT VISIT EST Diagnosis: MALAISE AND FATIGUE[ICD9: 780.79] Diagnosis: MUSCLE WEAKNESS-GENERAL[ICD9: 728.87] Diagnosis: MIGRAINE NOS/NOT INTRCBL[ICD9: 346.90] Diagnosis: JOINT PAIN-SHLDER[ICD9: 719.41] Bleia CORNELLLINE BushraMayda [facility] CPT-[facility]: 19365 09/12/2011 ([id number]) OFFICE/OUTPATIENT VISIT EST Diagnosis: CONCUSSION[ICD9: 850.9] Diagnosis: Ataxia[ICD9: 781.3] Diagnosis: DIZZINESS/VERTIGO[ICD9: 780.4] Belia CORNELLLINE Bushra Mayda ANUSHKA [facility] CPT-4: 42671 08/15/2011 ([id number]) OFFICE/OUTPATIENT VISIT EST Diagnosis: THROMBOPHLEBITIS[ICD9: 451.9] Diagnosis: Subacromial bursitis[ICD9: 726.19] Diagnosis: ALLERGIC RHINITIS[ICD9: 477.9] Diagnosis: Lipoma[ICD9: 214.9] Belia HSUQUECLAYTON [facility] CPT-[facility]: 03715 08/09/2011 ([id number]) OFFICE/OUTPATIENT VISIT EST Diagnosis: THROMBOPHLEBITIS[ICD9: 451.9] Diagnosis: Arm pain[ICD9: 729.5] Diagnosis: Clostridium difficile colitis[ICD9: 008.45] Diagnosis: URINARY TRACT INFECTION[ICD9: 599.0] [facility]: 14675 07/03/2011 ([id number]) OFFICE/OUTPATIENT VISIT EST Diagnosis: ARTHRALGIA-MULTIPLE SITES[ICD9: 719.49] Diagnosis: Muscle cramp[ICD9: 729.82] Diagnosis: INSOMNIA NOS[ICD9: 780.52] [facility]: 77833 06/04/2011 OFFICE/OUTPATIENT VISIT EST Diagnosis: Headache[ICD9: 784.0] Diagnosis: Allergic rhinitis[ICD9: 477.9] [facility]: 48905 05/03/2011 OFFICE/OUTPATIENT VISIT EST Diagnosis: LUMB/LUMBOSAC DISC DEGEN[ICD9: 722.52] Diagnosis: MIGRAINE NOS/NOT INTRCBL[ICD9: 346.90] Diagnosis: CHRONIC PAIN SYNDROME[ICD9: 338.4] Diagnosis: RESTLESS LEGS SYNDROME[ICD9: 333.94] [facility]: 94367 04/05/2011 OFFICE/OUTPATIENT VISIT EST Diagnosis: MIGRAINE NOS/NOT INTRCBL[ICD9: 346.90] Diagnosis: GERD[ICD9: 530.81] Belia REID [facility] CPT-4: 22123 03/08/2011 OFFICE/OUTPATIENT VISIT EST Diagnosis: URINARY TRACT INFECTION[ICD9: 599.0] Diagnosis: Vertigo[ICD9: 780.4] Diagnosis: GERD[ICD9: 530.81] Beliahanna [facility] CPT-4: 62291 01/24/2011 OFFICE/OUTPATIENT VISIT EST Diagnosis: Hypotension[ICD9: 458.9] Diagnosis: Syncopal episodes[ICD9: 780.2] Diagnosis: MIGRAINE NOS/NOT INTRCBL[ICD9: 346.90] Diagnosis: MALAISE AND FATIGUE[ICD9: 780.79] Belia Paredes SMayda ZACHARYNDER DO [facility] CPT-4: 44340 01/02/2011 OFFICE/OUTPATIENT VISIT EST Diagnosis: Tinea cruris[ICD9: 110.3] Diagnosis: Intertrigo[ICD9: 695.89] Diagnosis: MIGRAINE NOS/NOT INTRCBL[ICD9: 346.90] Belia GaribayLUBNA SMayda ORENDER DO [facility] CPT-4: 26157 12/07/2010 OFFICE/OUTPATIENT VISIT EST Diagnosis: PALPITATIONS[ICD9: 785.1] Diagnosis: ANXIETY STATE NOS[ICD9: 300.00] Belia BRUNSON BushraMayda ZACHARYNDER DO [facility] CPT-4: 37724 11/16/2010 OFFICE/OUTPATIENT VISIT EST Diagnosis: URINARY TRACT INFECTION[ICD9: 599.0] Diagnosis: MIGRAINE NOS/NOT INTRCBL[ICD9: 346.90] Iraida GaribayLUBNA S. ORENDER DO [facility] CPT-4: 89094 11/02/2010 OFFICE/OUTPATIENT VISIT EST Diagnosis: ALLERGIC RHINITIS[ICD9: 477.9] Diagnosis: ANXIETY STATE NOS[ICD9: 300.00] Belia BRUNSON SMayda ZACHARYNDER DO [facility] CPT-4: 34290 10/18/2010 OFFICE/OUTPATIENT VISIT EST Belia Shi ZACHARY NDER DO [facility] CPT- 4: 67848 09/19/2010 OFFICE/OUTPATIENT VISIT EST Belia Shi ORE NDER DO [facility] CPT- 4: 25647 09/06/2010 ([id number]) OFFICE/OUTPATIENT VISIT EST Belia CASILLAS PhoenixLUBNA SMayda ORENDER DO [facility] CPT-4: 55527 08/10/2010 ([id number]) OFFICE/OUTPATIENT VISIT EST Belia CASILLAS PhoenixLUBNA SMayda ORENDER DO [facility] CPT-4: 90726 05/11/2010 ([id number]) OFFICE/OUTPATIENT VISIT, EST [facility] CPT-4: 40148 04/06/2010 ([id number]) OFFICE/OUTPATIENT VISIT, RIOS [facility] CPT-4: 79087 02/09/2010 ([id number]) OFFICE/OUTPATIENT VISIT, RIOS [facility] CPT-4: 75872 01/05/2010 ([id number]) OFFICE/OUTPATIENT VISIT, EST Belia HSU [facility] CPT-4: 54018 12/07/2009 ([id number]) OFFICE/OUTPATIENT VISIT, EST Belia HSU [facility] CPT-4: 58977 11/08/2009 ([id number]) OFFICE/OUTPATIENT VISIT, RIOS [facility] CPT-4: 19511 10/24/2009 ([id number]) OFFICE/OUTPATIENT VISIT, EST Belia [facility] CPT-4: 23864 07/25/2009 ([id number]) OFFICE/OUTPATIENT VISIT, RIOS [facility] CPT-4: 82304 05/26/2009 Plan of Care Planned Activity Notes [...] ICD-10 : R10.2 08/04/2019 Appointment: Pattie Sotomayor [address] [place], [place] [id number] ACUTE ILLNESS 08/04/2019 Visit Diagnosis Plan: Inspiratory stridor Discussion: Continue oxygen via NC at 2 L Continue ativan at QID Follow Up: 4 weeks ICD-9 : 786.1 ICD-10 : R06.1 07/06/2019 Visit Diagnosis Plan: Diarrhea Discussion: Restart Col estid at once daily ICD-9 : 787.91 ICD-10 : R19.7 07/06/2019 Appointment: Belia Reid WPtel: [phone] [facility] TELEMEDICINE 07/06/2019 Visit Diagnosis Plan: Left [...] R06.00 06/24/2019 Appointment: Belia Reid WPtel: [phone] [facility] TELEMEDICINE 06/24/2019 Visit Diagnosis Plan: Colitis Discussion: Levaquin/Fla gyl Ness Diet ICD-9 : 558.9 ICD-10 : K52.9 06/16/2019 Visit Diagnosis Plan: Acute bronchitis Discussion: Cov er with levaquin Increase SVNs with albuterol to QID Has oxygen using q HS routinely and prn To ER if oxygen levels drop or worsening respiratory symptoms ICD-9 : 466.0 ICD-10 : J20.9 06/16/2019 Appointment: Belia Reid: [address] [place] [address] TELEMEDICINE 06/16/2019 Patient Education: Patel OptimizeZACHARY Kate [id number] [id number] [email or web address]/[email or web address]/samplemd/resources/getResource/61/67s83bva-[email or web address] Completed 06/16/2019 Visit Diagnosis Plan: Diarrhea Discussion: Vancomycin for 10 days and notify if not improving or worsening BLAND diet Hydrate ICD-9 : 787.91 ICD-10 : R19.7 06/08/2019 Appointment: Belia Reid WPtel: [address] [place] [address] TELEMEDICINE 06/08/2019 Visit Diagnosis Plan: Colitis Discussion: Flagyl plus cipro to cover for both colitis and UTI Notify or to ER if worsening ICD-9 : 558.9 ICD-10 : K52.9 05/26/2019 Visit Diagnosis Plan: Acute febrile illness Discussion : Notify if worsens ICD-9 : 780.60 ICD-10 : R50.9 05/26/2019 Appointment: Belia Reid WPtel: [address] [place] [address] TELEMEDICINE 05/26/2019 Appointment: Pattie Sotomayor [address] RESCHEDULED 05/18/2019 Visit Diagnosis Plan: Chronic [...] J44.9 05/13/2019 Appointment: Belia Reid WPtel: [address] [place] [address] Hospital Follow Up 05/13/2019 Visit Diagnosis Plan: COUGH Discussion: Check CT scan of chest ICD-9 : 786.2 ICD-10 : R05 05/06/2019 Visit Diagnosis Plan: Stridor Discussion: Add Trelagy 1 p daily Add Singulair May need to see new credit reference clerk ICD-9 : 786.1 ICD-10 : R06.1 05/06/2019 Appointment: Belia Reid WPtel: [address] [place] [address] FOLLOW UP 05/06/2019 Patient Education: Singulair- [employer] Coupon [phone] [email or web address]://www.[employer]/Help/Systems/resources/getResource/61/2114840p-g00a-94j1-iu Completed 05/06/2019 Appointment: Belia Reid WPtel: [address] [place] [address] US RESCHEDULED 04/30/2019 Visit Diagnosis Plan: Stridor [...] : G25.5 04/29/2019 Appointment: Belia Reid WPtel: [address] [place] [address] Hospital Follow Up 04/29/2019 Patient Education: Valium- OptimizeRX Coupon [id number] https://www.[employer]/Help/Systems/resources/getResource/61/j00098jj-544o-9j11-5f Completed 04/29/2019 Visit Diagnosis Plan: Flank pain [...] ICD-10 : R63.5 04/16/2019 Appointment: Pattie Sotomayor [address] [place] [address] ACUTE ILLNESS 04/16/2019 Patient Education: cyclobenzaprine- [employer] Coupon [id number] https://www.[employer]/Help/Systems/resources/getResource/61/ii73y2b8-7677-9649-q3 Completed 04/16/2019 Visit Diagnosis Plan: Migraine, unspecif ied, not intractable, without status migrainosus Discussion: Increase gabapentin to 600mg po BID ICD-9 : 346.90 ICD-10 : G43.909 04/08/2019 Visit Diagnosis Plan: Generalized pruritus Discussion: Hydroxyzine 25mg po TID for itching and anxiety ICD-9 : 698.9 ICD-10 : L29.9 04/08/2019 Appointment: Belia Reid WPtel: [address] [place] [address] ACUTE ILLNESS 04/08/2019 Visit Diagnosis Plan: Cervicalgia [...] : M75.52 01/22/2019 Appointment: Belia Reid WPtel: [address] [place] [address] Hospital Follow Up 01/22/2019 Visit Diagnosis Plan: Abdominal pain Discussion: urine culture sent to assess for any infection. rocephin given in office to cover for pyelonephritis. instructed to push fluids. call office with any new or worsening symptoms. ICD-9 : 789.00 ICD-10 : R10.9 01/07/2019 Appointment: Pattie Sotomayor [address] [place], [place] [address] ACUTE ILLNESS 01/07/2019 Visit Diagnosis Plan: Low back pain Discussion: Stat C T of abdomen/pelvis now ICD-9 : 724.2 ICD-10 : M54.5 12/24/2018 Appointment: Belia Reid WPtel: [address] [place] [address] FOLLOW UP 12/24/2018 Visit Diagnosis Plan: Migraine, [...] : M79.7 11/20/2018 Appointment: Belia Reid WPtel: [address] [place] [address] ACUTE ILLNESS 11/20/2018 Patient Education: baclofen- [employer] Coupon [id number] https://www.Help/Systems.[employer]/samplemd/resources/getResource/61/0m3685a1-wa9d-30xp-58 Completed 11/20/2018 Visit Diagnosis Plan: Migraine, unspecif ied, intractable, without status migrainosus Discussion: toradol/phenergan given in o ffice (60 mg toradol, 12.5 mg phenergan). instructed to call if no improvement or worsening. 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 ICD-9 : 346.91 ICD-10 : G43.919 11/04/2018 Visit Diagnosis Plan: Acute sinusitis, unspecified Dis cussion: zithromax prescribed to cover for sinus infection due to length of symptoms and clinincal s/s. ICD-9 : 461.9 ICD-10 : J01.90 11/04/2018 Appointment: Pattie Sotomayor [address] [place], [place] [id number] ACUTE ILLNESS 11/04/2018 Appointment: Belia Reid WPtel:[phone] [address] [facility] [facility]ED 09/24/2018 Visit Diagnosis Plan: Type 2 diabetes me llitus with diabetic neuropathy, unspecified Discussion: Retry gabapentin 300mg po q HS ICD-9 : 250.60 ICD-10 : E11.40 09/18/2018 Visit Diagnosis Plan: Vitamin D deficiency, unspecifie d Discussion: Increase Vitamin D3 to 10,000 u daily ICD-9 : 268.9 ICD-10 : E55.9 09/18/2018 Visit Diagnosis Plan: Encounter for [facility] adult medical examination without abnormal findings [...] I10 09/18/2018 Appointment: Belia Reid WPtel: [phone] [facility] Annual Well Visit 09/18/2018 Patient Education: gabapentin- OptimizeRX Coupon [id number] https://www.Help/Systems.com/samplemd/resources/getResource/61/1l79st45-9hc0-4hdl-x5 Completed 09/18/2018 Visit Diagnosis Plan: Pain in [...] : M54.89 09/08/2018 Appointment: Pattie Sotomayor [address] [place] [address] ACUTE ILLNESS 09/08/2018 Patient Education: prednisone- OptimizeRX Coupon [id number] https://www.Help/Systems.com/samplemd/resources/getResource/61/1q5gb69e-8558-66o4-km Completed 09/08/2018 Visit Diagnosis Plan: Pruritus, unspecified [...] : E10.9 08/20/2018 Appointment: Belia Reid WPtel: [address] [place] [address] ACUTE ILLNESS 08/20/2018 Patient Education: Lexapro- Optimize[employer] Coupon [id number] Completed 08/20/2018 Patient Education: hydroxyzine HCl- OptimizeRX Coupon [id number] Completed 08/20/2018 Care Plan: MAMMOGRAM SCREENING LOINC : 2 6347-5 Pending 08/20/2018 Visit Diagnosis Plan: Paroxysmal atrial fibrillation D iscussion: Discuss eliquis need with cardiology at [facility] due to cost ICD-9 : 427.31 ICD-10 : I48.0 06/19/2018 Visit Diagnosis Plan: Hypotension due to drugs Discuss ion: Discussed decreasing cardizem dose due to low BP and edema but sees cardiology next week Follow Up: 1 months ICD-9 : 458.8 ICD-10 : I95.2 06/19/2018 Appointment: Belia Reid WPtel: [facility] [address] FOLLOW UP 06/19/2018 Visit Diagnosis Plan: [...] : R61 06/09/2018 Appointment: Belia Reid WPtel: [address] [place], [place] [phone] FOLLOW UP 06/09/2018 Care Plan: CHEST X-RAY 2VW FRONTAL&LATL LOINC : 05142-3 Pending 05/26/2018 Visit Diagnosis Plan: Supraventricular tachycardia [...] : R53.1 05/21/2018 Appointment: Belia Reid WPtel: [address] [place], [place] [address] Hospital Follow Up 05/21/2018 Visit Diagnosis Plan: Cervical disc diso rder with radiculopathy, unspecified cervical region Discussion: Scheduled for surgery on 06/02 10/[address] Faulkner ICD-9 : 722.0 ICD-10 : M50.10 04/16/2018 Appointment: Belia Reid WPtel: [address] [place], [place] [phone] Hospital Follow Up 04/16/2018 Visit Diagnosis Plan: [...] ICD-10 : G43.919 04/01/2018 Appointment: Pattie Sotomayor [address] [place] [address] ACUTE ILLNESS 04/01/2018 Appointment: Belia Reid WPtel: [address] [place] [address] 03/17/2018 Visit Diagnosis Plan: Chronic obstructiv e [...] : E11.65 03/06/2018 Appointment: Belia Reid WPtel: [address] [place] [address] Hospital Follow Up 03/06/2018 Visit Diagnosis Plan: Cervicalgia Discussion: spoke wi th dr. reid about patient. increased gabapentin to bid and started on celebrex bid. tramadrol rx written out to take prn. keep scheduled appt next week for myelogram. ICD-9 : 723.1 ICD-10 : M54.2 02/05/2018 Appointment: Pattie Sotomayor [address] [place] [address] ACUTE ILLNESS 02/05/2018 Care Plan: X-RAY EXAM NECK SPINE 4/5VWS cervical LOINC : 10762-3 Pending 01/21/2018 Visit Diagnosis Plan: Candidiasis of [...] ICD-10 : M54.2 01/20/2018 Appointment: Pattie Sotomayor [address] [place] [address] ACUTE ILLNESS 01/20/2018 Visit Diagnosis Plan: Pain in thoracic spine Discussio n: Proceed with CT scan of thoracic spine Will likely need PT ICD-9 : 724.1 ICD-10 : M54.6 12/25/2017 Appointment: Belia Reid WPtel: [address] [place] [address] US FOLLOW UP 12/25/2017 Care Plan: CT THORAX W/O DYE LOINC : 473 66-0 Pending 12/25/2017 Visit Diagnosis Plan: Pain in thoracic spine Discussio n: Stretches Alternated heat/ice Topical aspercreme with lidocaine Flexeril Recheck 1 week Flu and Pneumovax given ICD-9 : 724.1 ICD-10 : M54.6 12/17/2017 Appointment: Belia Reid WPtel: [address] [place], [place] [phone] ACUTE ILLNESS 12/17/2017 Patient Education: Patient Medication [...] : J44.1 10/30/2017 Appointment: Belia Reid WPtel: [address] [place], [place] [address] FOLLOW UP 10/30/2017 Patient Education: Patient Medication Summary Completed 10/30/2017 Visit Diagnosis Plan: Chronic obstructiv e pulmonary disease with acute lower respiratory infection Discussion: Continue SVNs with albuterol q4hrs Add Trelagy 1 inhalation daily Finish steroids Increase water intake Follow Up: 1 weeks ICD-9 : 496 ICD-10 : J44.0 10/23/2017 Appointment: Belia Reid WPtel: [address] [place], [place] [phone] WORK IN 10/23/2017 Patient Education: Patient Medication Summary Completed 10/23/2017 Appointment: Belia Reid WPtel: [address] [place], [place] [phone] NO SHOW 10/16/2017 Visit Diagnosis Plan: Confusional [...] : E11.65 09/17/2017 Appointment: Belia Reid WPtel: [address] [place], [place] [phone] Annual Well Visit 09/17/2017 Patient Education: Patient Medication Summary Completed 09/17/2017 Appointment: Belia Reid WPtel: [address] [place], [place] [phone] US INJECTION 08/26/2017 Patient Education: Patient Medication Summary Completed 08/26/2017 Appointment: Belia Reidtel: [address] [place], [place] [phone] US CANCELED 07/31/2017 Visit Diagnosis Plan: Encounter [...] ICD-10 : J20.9 07/19/2017 Appointment: Pattie Sotomayor [facility] [address] ACUTE ILLNESS 07/19/2017 Patient Education: Patient Medication Summary Completed 07/19/2017 Care Plan: MAMMOGRAM SCREENING LOINC : 2 6347-5 Pending 07/19/2017 Patient Education: Patient Medication Summary Completed 06/05/2017 Care Plan: LIPID PANEL LOINC : 26189-6 Pending 06/05/2017 Care Plan: A1C HPLC LOINC : 68495-5 Pending 06/05/2017 Visit Diagnosis Plan: Rash and [...] ICD-10 : R21 05/29/2017 Appointment: Pattie Sotomayor [facility] [id number] FOLLOW UP 05/29/2017 Patient Education: Patient Medication Summary Completed 05/29/2017 Visit Diagnosis Plan: Tinea corporis Discussion: Diflu can and topical nystatin Follow Up: 2 weeks ICD-9 : 110.5 ICD-10 : B35.4 05/07/2017 Visit Diagnosis Plan: Diarrhea, unspecified Discussion : Diflucan Cholestyramine Recheck 2weeks ICD-9 : 787.91 ICD-10 : R19.7 05/07/2017 Appointment: Belia Reidtel: [address] [place], [place] [phone] US FOLLOW UP 05/07/2017 Patient Education: Patient Medication Summary Completed 05/07/2017 Appointment: Belia Reidtel: [address] [place] [address] US RESCHEDULED 04/30/2017 Visit Diagnosis Plan: Chronic obstructiv e pulmonary disease with (acute) exacerbation Discussion: Finish prednisone Continue S VNS with albuterol ICD-9 : 491.21 ICD-10 : J44.1 03/18/2017 Visit Diagnosis Plan: Stridor Discussion: Increase Ati van 0.5mg po to TID routinely for next week then can go back to prn ICD-9 : 786.1 ICD-10 : R06.1 03/18/2017 Appointment: Belia Reid WPtel: [address] [place] [address] ER Follow UP 03/18/2017 Patient Education: Patient [...] ICD-10 : E11.65 02/27/2017 Appointment: Belia Reidtel: [address] [place], [place] [phone] US FOLLOW UP 02/27/2017 Patient Education: Patient [...] ICD-10 : E11.65 02/22/2017 Appointment: Pattie Sotomayor [address] [place], [place] [phone] ACUTE ILLNESS 02/22/2017 Patient Education: Patient [...] : J18.9 01/23/2017 Appointment: Belia Reid WPtel: [address] [place], [place] [phone] ER Follow UP 01/23/2017 Patient Education: Patient Medication Summary Completed 01/23/2017 Appointment: Pattie Sotomayor [address] [place], [place] [phone] CANCELED 01/17/2017 Appointment: Pattie Sotomayor [address] [place], [place] [phone] Annual Well Visit 01/14/2017 Visit Diagnosis Plan: Type 2 diabetes mellitus with hy perglycemia Discussion: Check CMP, HbA1C Flu shot and Prevnar 13 given Follow Up: 3 months ICD-9 : 250.02 ICD-10 : E11.65 12/20/2016 Visit Diagnosis Plan: Localized edema Discussion: Low Na diet Compression socks/Elevate feet ICD-9 : 782.3 ICD-10 : R60.0 12/20/2016 Appointment: Belia Reid WPtel: [facility] FO[facility] 12/20/2016 Patient Education: Patient Medication Summary Completed 12/20/2016 Patient Education: Patient Medication Summary Completed 10/10/2016 Visit Plan: Xrays of cervical, thoracic and lumbar spine at ER[facility] for Mobic (stop NSAIDS except Tylenol) and Flexeril UA sent for C&S Using SVN Call in 2-3 days if pain not improved or any worsening 10/08/2016 Appointment: Celeste Ferreira WPtel: [phone] [facility] AC[facility] ILLNESS 10/08/2016 Patient Education: Patient Medication [...] : E11.65 09/19/2016 Appointment: Belia Reid WPtel: [facility] 09/18 confirmed`sl FOLLOW UP 09/19/2016 Patient [...] : R10.84 08/20/2016 Appointment: Belia Reid WPtel: [address] [place], [place] [address] 08/16 confirmed~sl FOLLOW UP 08/20/2016 Patient Education: [...] : J44.9 06/19/2016 Appointment: Belia Reid WPtel: [address] [place], [place] [phone] 06/18 confirmed ~ Hospital Follow Up 06/19/2016 [...] : Z87.440 06/04/2016 Appointment: Belia Reid WPtel: [address] [place] [address] 06/01 confirmed~sl FOLLOW UP 06/04/2016 Patient Education: [...] : R06.1 05/02/2016 Appointment: Belia Reid WPtel: [address] [place] [address] 05/01 confirmed [facility] Follow Up 05/02/2016 Patient Education: Patient [...] : N39.0 04/03/2016 Appointment: Belia Reid WPtel: [address] [place] [address] 04/[facility] 04/03/2016 Patient Education: Patient Medication Summary Completed 04/03/2016 Visit Plan: Lungs are clear Her symptoms and exam are all upper airway restriction/constriction Can try supportive care Rx as above Follow up PRN 02/29/2016 Appointment: Lidia Hwang [address] [place] [address] ACUTE ILLNESS 02/29/2016 Patient Education: Patient Medication Summary Completed 02/29/2016 Visit Plan: Toradol/Phenergan today for Migraine Change to Clindamycin to cover lactobacillus for UTI Cover with flagyl due to hx of C. Diff 02/02/2016 Appointment: Belia Reid WPtel: [address] [place] [address] 01/31 confirmed` ACUTE ILLNESS 02/02/2016 Patient Education: Patient Medication Summary Completed 02/02/2016 Visit Plan: Increase neurontin to 300mg q AM and 600mg q PM Discussed neurology re-evaluation Flu shot given Need to check on Pneumonia shot Rx written out for albuterol 01/05/2016 Appointment: Belia Reid WPtel: [address] [place], [place] [phone] 01/03 confirmed ~sl Annual Well Visit 01/05/2016 Patient Education: Patient Medication Summary Completed 01/05/2016 Visit Plan: Cipro Culture urine hydrate Flexeril refilled Alternate heat and ice for back Increase gabapentin to 300mg po BID Notify if worsens 12/05/2015 Appointment: Belia Reid WPtel: [facility] 11/30 confirmed~sl ACUTE ILLNESS 12/05/2015 Patient Education: Patient Medication Summary Completed 12/05/2015 Patient Education: Patient Medication Summary Completed 10/27/2015 Care Plan: COMPREH[place]AB[place] : 03263-8 Pending 10/27/2015 Care Plan: A1C HPLC LOINC : 20592-8 Pending 10/27/2015 Visit Plan: Lungs are CTA today and is f eeling improved overall Finish meds as ordered Continue inhalers and neb treatments Discussed migraine treatment options She does not feel she needs anything additional added today Refill of Januvia sent since no samples are available today 10/26/2015 Appointment: Lidia Hwang [address] Hospital Follow Up 10/26/2015 Appointment: Lidia Hwang [address] [facility] CANCELED 10/26/2015 Patient Education: Patient Medication Summary Completed 10/26/2015 Patient Education: Januvia - 18+ - KENNETH - No [place] Completed 10/26/2015 Visit Plan: Office dip still abnormal Cu lture pending Switch to cipro - stop macrobid Push fluids - avoid caffeine Will call with culture results when available Follow up if worsening 10/05/2015 Appointment: Lidia Hwang [address] ER Follow UP 10/05/2015 Patient Education: Patient Medication Summary Completed 10/05/2015 Visit Plan: Proceed with PT for document ation of ROM and strength of all extremities Proceed with Power Mobility Device Trial of neurontin 300mg q HS--lyrica helped but patient unable to afford Recheck 1month 09/15/2015 Appointment: Belia Reid WPtel: [phone] [facility] 09/13 confirmed~sl SPECIAL 09/15/2015 Patient Education: Patient Medication Summary Completed 09/15/2015 Visit Plan: Fille out Loan Discharge Pap erwork for total and permanent disability 08/25/2015 Patient Education: Patient Medication Summary Completed 08/25/2015 Visit Plan: Discussed with Dr Anushka Haywood at [facility] head Will 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 and update if needed 08/24/2015 Appointment: Lidia Hwang [phone] [facility] 08/22 confirmed~sl ACUTE ILLNESS 08/24/2015 Patient Education: Patient Medication Summary Completed 08/24/2015 Patient Education: Patient Medication Summary Completed 08/24/2015 Care Plan: US EXAM OF HEAD AND NECK carotid Ultrasound LOIN C : 76112-1 Pending 08/24/2015 Visit Plan: Long discussion about diet A ccuchecks daily Check HbA1C, CMP Change requip to mirapex 07/05/2015 Appointment: Belia Reid WPtel: [phone] [facility] 07/03 confirmed ~sl FOLLOW UP 07/05/2015 Patient Education: Patient Medication Summary Completed 07/05/2015 Visit Plan: Add Breo ellipta 100 1 p BID Continue SVNs with duoneb QID 06/06/2015 Appointment: Belia Reid WPtel: [address] [place], [place] [phone] Patient is calling for a ride, then [...] not improving 05/23/2015 Appointment: Huong Osborne WPtel: [address] [place] [address] ACUTE ILLNESS 05/23/2015 Appointment: Lidia Hwang [address] [place] [address] ER Follow UP 05/23/2015 Patient Education: Patient Medication Summary Completed 05/23/2015 Visit Plan: Check pancreatic enzymes and US of pancreas as patient can't understand why she has diabetes since has no family history Discussed weight, diet, exercise all play an important role in diabetes and are risk factors as well Continue Januvia and accuchecks daily 05/05/2015 Appointment: Belia Reid WPtel: [address] [place] [address] US FOLLOW UP 05/05/2015 Patient Education: Patient Medication Summary Completed 05/05/2015 Care Plan: US EXAM ABDOM COMPLETE LOINC : 82246-4 Ordered 05/05/2015 Visit Plan: Start Januvia 100mg daily [place] with diflucan and culture urine Accuchecks daily alternating times Recheck 6weeks 03/30/2015 Appointment: Belia Reid WPtel: [address] [place] [address] 03/29 confirmed~lb FOLLOW UP 03/30/2015 Patient Education: Patient Medication Summary Completed 03/30/2015 Appointment: Belia Reid WPtel: [address] [place], [place] [phone] [place] 03/01 needs reschedule due to payment and insurance ~sl FOLLOW UP 03/02/2015 Visit Plan: Patient was just in ER last night so has not filled scripts yet Start Carafate and Flagyl and Cipro Add Hyophen 1 po BID Recheck 1mo 02/03/2015 Appointment: Belia Reid WPtel: [address] [place], [place] [phone] 02/02lm ~sl...02/03/15 appt confirmed cn ACUTE I LLNESS 02/03/2015 Patient Education: Patient Medication Summary Completed 02/03/2015 Visit Plan: Warm soaks to vaginal area K elex and Diflucan and observe Zofran to use prn 12/29/2014 Appointment: Belia Reid WPtel: [address] [place] [address] 12/28 Confirmed ~ ACUTE ILLNESS 12/29/2014 Patient Education: Patient Medication Summary Completed 12/29/2014 Appointment: Huong Osborne WPtel: [address] [place], [place] [phone] FOLLOW UP 09/24/2014 Appointment: Belia Reid WPtel: [address] [place] [address] 09/15 confirmed - FOLLOW UP 09/16/2014 Visit Plan: Increase requip to 2mg po BI D Increase lyrica to 225mg total a day by adding an extra 75mg in AM Recheck in 2weeks Continue to patch left eye while sleeping 09/02/2014 Appointment: Belia Reid WPtel: [address] [place], [place] [phone] 09/01 appt confirmed [facility] Follow Up 09/02 Patient Education: Patient Medication Summary Completed 09/02/2014 Visit Plan: To Via Ayanna for observat ion to R/O CVA 08/25/2014 Appointment: Huong Osborne WPtel: [address] [place], [place] [phone] ACUTE ILLNESS 08/25/2014 Patient Education: Patient Medication Summary Completed 08/25/2014 Referral: Aaron Jonas WPtel: [facility] [address] [place] location Initiated 04/26/2014 Referral: Brian Srinivasan WPtel: [id number] Referral Initiated 04/20/2014 Appointment: Belia Reid WPtel: [address] [place], [place] [address] ER Follow UP 04/01/2014 Patient Education: Patient Medication Summary Completed 04/01/2014 Care Plan: MYELOGRAPHY NECK SPINE LOINC : 15215-9 Ordered 04/01/2014 Visit Plan: Continue Symbicort 160 at 2p BID Continue SVNs with duoneb at least QID Finish Levaquin Recheck 1mo on lyrica 03/16/2014 Appointment: Belia Reid WPtel: [address] [place], [place] [phone] 03/15 voicemail FOLLOW UP 03/16/2014 Patient Education: Patient Medication Summary Completed 03/16/2014 Visit Plan: Restart SVNs with duoneb QID Repeat prednisone Levaquin Continue symbicort Keep lyrica at same dose Recheck 1week 03/09/2014 Appointment: Belia Reid WPtel: [address] [place], [place] [phone] FOLLOW UP 03/09/2014 Patient Education: Patient Medication Summary Completed 03/09/2014 Appointment: Belia Reid WPtel: [address] [place], [place] [phone] 03/03 showed up 15 minutes late for appt -- put her on Huong's side for 10:45am FORGIVEN PER DR FOLLOW UP 03/03/2014 Appointment: Huong Osborne WPtel: [address] [place], [place] [address] [place] FOLLOW UP 03/03/2014 Patient Education: Patient Medication Summary Completed 03/03/2014 Appointment: Huong Osborne WPtel: [address] [place], [place] [phone] ER Follow UP 03/01/2014 Patient Education: Patient Medication Summary Completed 03/01/2014 Visit Plan: Add carafate for this next m onth Increase lyrica to 150mg q HS 02/09/2014 Appointment: Belia Reid WPtel: [address] [place], [place] [phone] Hospital Follow Up 02/09/2014 Patient Education: Patient Medication Summary Completed 02/09/2014 Visit Plan: Increase omeprazole back to 40mg po BID Use requip in AM and add lyrica 75mg q HS Recheck 1mo 12/23/2013 Appointment: Belia Reid WPtel: [address] [place], [place] [phone] FOLLOW UP 12/23/2013 Patient Education: Patient Medication Summary Completed 12/23/2013 Patient Education: Patient Medication Summary Completed 12/04/2013 Appointment: Belia Reid WPtel: [address] [place], [place] [phone] UA 10/30/2013 Patient Education: Patient Medication Summary Completed 10/30/2013 Appointment: Belia Reid WPtel: [address] [place], [place] [phone] UA 10/21/2013 Patient Education: Patient Medication Summary Completed 10/21/2013 Visit Plan: Cryotherapy as above TAC and hydroxyzine to use prn to itching spots and itching SKs Add Advair HFA 115/21 1 p BID 10/05/2013 Appointment: Belia Reid WPtel: [address] [place], [place] [phone] 10/01 pt called and confirmed ACUTE ILLNESS Patient Education: Patient Medication Summary Completed 10/05/2013 Appointment: Belia Reid WPtel: [address] [place], [place] [phone] will pay copay and part of past balance FOLLOW U P 08/04/2013 Patient Education: Patient Medication Summary Completed 08/04/2013 Appointment: Belia Reid WPtel: [address] [place], [place] [phone] US INJECTION 07/13/2013 Patient Education: Patient Medication Summary Completed 07/13/2013 Appointment: Huong Osborne WPtel: [address] [place], [place] [phone] ACUTE ILLNESS 07/03/2013 Patient Education: Patient Medication Summary Completed 07/03/2013 Visit Plan: Cipro and culture urine 05/27/2013 Appointment: Huong Osborne WPtel: [address] [place], [place] [address] 05/26 confirmed appt and notified that balance and endoscopy tech y is due at appt time FOLLOW UP 05/27/2013 Patient Education: Patient Medication Summary Completed 05/27/2013 Appointment: Belia Reid WPtel: [address] [place], [place] [phone] US UA 05/25/2013 Patient Education: Patient Medication Summary Completed 05/25/2013 Appointment: Belia Reid WPtel: [address] [place], [place] [phone] US INJECTION 05/04/2013 Patient Education: Patient Medication Summary Completed 05/04/2013 Appointment: Belia Reid WPtel: [address] [place], [place] [phone] US INJECTION 04/17/2013 Patient Education: Patient Medication Summary Completed 04/17/2013 Appointment: Belia Reid WPtel: [address] [place], [place] [phone] US INJECTION 04/15/2013 Appointment: Belia Reid WPtel: [address] [place], [place] [phone] 04/02 FOLLOW UP 04/06/2013 Patient Education: Patient Medication Summary Completed 04/06/2013 Visit Plan: Obtain lab results including UA from [facility] 11/10/2012 Appointment: Belia Reid WPtel: [address] [place], [place] [phone] [place] ER Follow UP 11/10/2012 Patient Education: Patient Medication Summary Completed 11/10/2012 Appointment: Belia Reid WPtel: [address] [place] [address] 10/30/12 patient canceled appt due to fin ances. Offered to work something out, patient declined-LB FOLLOW UP 11/05/2012 Visit Plan: Continue Bystolic at current dose Pt has fwup with Neurology on September 16 09/02/2012 Appointment: Belia Reid WPtel: [address] [place] [address] FOLLOW UP 09/02/2012 Patient Education: Patient Medication Summary Completed 09/02/2012 Visit Plan: Continue bystolic at 5mg chris ly Sees Neurology tomorrow Use oxygen at bedtime 08/04/2012 Appointment: Belia Reidtel: [address] [place] [address] FOLLOW UP 08/04/2012 Patient Education: Patient Medication Summary Completed 08/04/2012 Appointment: Belia Reid WPtel: [address] [place] [address] Hospital fwup for 07/21/12. merged appointments FOLLOW UP 07/24/2012 Visit Plan: Start Bystolic 5mg daily for tachycardia Fwup with neurology for further workup Overnight O2 sat 07/21/2012 Appointment: Belia Reidtel: [address] [place] [address] Hospital Follow Up 07/21/2012 Patient Education: Patient Medication Summary Completed 07/21/2012 Visit Plan: SVN with Albuterol QID Add A velox 400mg daily Notify if worsens or persists 07/02/2012 Appointment: Belia Reid WPtel: [address] [place] [address] ACUTE ILLNESS 07/02/2012 Patient Education: Patient Medication Summary Completed 07/02/2012 Appointment: Belia Reidtel: [address] [place] [address] INJECTION 06/25/2012 Patient Education: Patient Medication Summary Completed 06/25/2012 App[facility]ment[facility] [id number] [id number] [facility] 06/24/2012 Patient Education: Patient Medication Summary Completed 06/24/2012 Appointment: Belia Reid WPtel: [address] [place], [place] [id number] 05/19 left message FOLLOW UP 05/20/2012 Patient [...] po TID 05/08/2012 Appointment: Belia Reid WPtel[id number] [facility] 05/08/2012 Patient Education: Patient Medication Summary Completed 05/08/2012 Visit Plan: Continue current meds Contin ue lower dose on pain meds and Diazepam Still waiting on paperwork for botox for Migraines Will restart Neurontin at 600mg po q HS Pt going to stop Depakote due to can't afford 04/22/2012 Appointment: Belia Reid WPtel: [address] [place], [place] [id number] 04/21 Hospital Follow Up 04/22/2012 Patient Education: Patient Medication Summary Completed 04/22/2012 Visit Plan: Injection to shoulder as abo ve Continue current meds Has appointment with neurology on HAs in 02/13/2012 Appointment: Belia Reid WPtel: [address] [place], [place] [id number] Pt does not have $10 copay at [facility] t time - will bring it in next week. Kianna iqbal'ed this. - [place] FOLLOW UP 02/13/2012 Patient Education: Patient Medication Summary Completed 02/13/2012 Visit Plan: Proceed with headache specia list Change nexium to Protonix Phenergan to use prn Sumatriptan to use prn Pt still on Inderal 01/28/2012 Appointment: Belia Reid WPtel: [address] [place] [address] ER Follow UP 01/28/2012 Patient Education: Patient [...] sleep 12/26/2011 Appointment: Belia Reid WPtel: [address] [place] [address] 12/24- appt. confirmed FOLLOW UP 2 Patient Education: Patient Medication Summary Completed 12/26/2011 Appointment: Belia Reid WPtel: [address] [place] [address] [place] FOLLOW UP 11/14/2011 Patient Education: Patient Medication Summary Completed 11/14/2011 Appointment: Belia Reidtel: [address] [place] [address] [place] FOLLOW UP 09/12/2011 Patient Education: Patient Medication Summary Completed 09/12/2011 Visit Plan: Supportive care Decrease Liseth catalino to 50mg q HS Decrease AM dose of Valium to 5mg q HS Use Endocet sparingly 08/15/2011 Appointment: Belia Reid WPtel: [address] [place] [address] ER Follow UP 08/15/2011 Patient Education: Patient Medication Summary Completed 08/15/2011 Appointment: Belia Reid WPtel: [address] [place] [address] [place] Spoke directly to patient yesterday and confirmed the appoin tment. cn ACUTE ILLNESS 08/09/2011 Patient Education: Patient Medication Summary Completed 08/09/2011 Appointment: Belia Reid WPtel: [address] [place] [address] Hospital Follow Up 07/03/2011 Patient Education: Patient Medication Summary Completed 07/03/2011 Appointment: Belia Reid WPtel: [address] [place] [address] FOLLOW UP 06/04/2011 Patient Education: Patient Medication Summary Completed 06/04/2011 Visit Plan: Pt. wants "allergy shot" but in fact wants steroid shot. Will take a break [facility] and try Singulair for 2 weeks. 05/03/2011 Appointment: Iraida Jones WPtel: [address] [place] [address] ACUTE ILLNESS 05/03/2011 Patient Education: Patient Medication Summary Completed 05/03/2011 Visit Plan: Neurontin 400mg q HS for 1we ek then 800mg q HS Decrease requip to 1mg q HS for 2wks then stop Fwup 2mos 04/05/2011 Appointment: Belia Reid WPtel: [address] [place] [address] FOLLOW UP 04/05/2011 Patient Education: Patient Medication Summary Completed 04/05/2011 Visit Plan: Trial of neurontin in 2wks C ontinue current meds for stomach Pt has procedure with Dr. Ortiz next week for stone removal 03/08/2011 Appointment: Belia Reid WPtel: [address] [place] [address] Hospital Follow Up 03/08/2011 Patient Education: Patient Medication Summary Completed 03/08/2011 Appointment: Belia Reid WPtel: [address] [place] [address] FOLLOW UP 02/19/2011 Visit Plan: reports increased [...] Flagyl 01/24/2011 Appointment: Iraida Jones WPtel: [address] [place] [address] ACUTE ILLNESS 01/24/2011 Patient Education: Patient Medication Summary Completed 01/24/2011 Appointment: Belia Reid WPtel: [address] [place] [address] [place] FOLLOW UP 01/02/2011 Patient Education: Patient Medication Summary Completed 01/02/2011 Appointment: Belia Reid WPtel: [address] [place] [address] FOLLOW UP 12/12/2010 Appointment: Belia Reid WPtel: [address] [place] [address] ACUTE ILLNESS 12/07/2010 Patient Education: Patient Medication Summary Completed 12/07/2010 Visit Plan: Increase Buspar to 10mg po B ID 11/16/2010 Appointment: Belia Reid WPtel: [address] [place] [address] FOLLOW UP 11/16/2010 Patient Education: Patient Medication Summary Completed 11/16/2010 Appointment: Iraida Jones WPtel: [address] [place] [address] ER Follow UP 11/02/2010 Patient Education: Patient Medication Summary Completed 11/02/2010 Visit Plan: Depo-Medrol/Kenalog given fo r allergies Add BuSpar for anxiety Oxycodone one p.o. q.i.d. for number 120 refilled 10/18/2010 Appointment: Belia Reid WPtel: [address] [place] [address] [place] FOLLOW UP 10/18/2010 Patient Education: Patient Medication Summary Completed 10/18/2010 Visit Plan: Continue current meds Discus sed epidurals for back vs PT--will proceed with epidurals to thoracolumbar region to see if helps with pain 09/19/2010 Appointment: Belia Reid WPtel: [address] [place], [place] [phone] FOLLOW UP 09/19/2010 Patient Education: Patient Medication Summary Completed 09/19/2010 Visit Plan: DC MS contin Check CT scan t horacic spine Fwup pending above results 09/06/2010 Appointment: Belia Reid WPtel: [address] [place], [place] [phone] FOLLOW UP 09/06/2010 Patient Education: Patient Medication Summary Completed 09/06/2010 Visit Plan: Continue current meds Restar t MS contin 15mg po BID and use oxycodone prn Use daily senokot-s 2 po BID 08/10/2010 Appointment: Belia Reid WPtel: [address] [place], [place] [phone] FOLLOW UP 08/10/2010 Patient Education: Patient Medication Summary Completed 08/10/2010 Visit Plan: Depomedrol/Kenalog given Pt sees ENT later this month Cont current meds Mammo scheduled 05/11/2010 Appointment: Belia Reid WPtel: [address] [place], [place] [phone] FOLLOW UP 05/11/2010 Patient Education: Patient Medication Summary Completed 05/11/2010 Appointment: Belia Reid WPtel: [address] [place], [place] [phone] UA 05/04/2010 Patient Education: Patient Medication Summary Completed 05/04/2010 Visit Plan: Pt sent to lab for UA 04/28/2010 Appointment: Belia Reid WPtel: [address] [place], [place] [phone] UA 04/28/2010 Patient Education: Patient Medication Summary Completed 04/28/2010 Visit Plan: Check CT angiogram of chest Restart Advair Use proair prn Cont current meds Fwup with Card as schedulec 04/06/2010 Appointment: Belia Reidtel: [address] [place] [address] Follow Up 04/06/2010 Patient Education: Patient Medication Summary Completed 04/06/2010 Visit Plan: Paperwork filled out for pow erchair Depomedrol/kenalog given Pt sees ENT in 2wks to assess nasal obstruction problems 02/09/2010 Appointment: Belia Reid WPtel: [address] [place] [address] ESTABLISHED PATIENT 02/09/2010 Patient Education: Patient Medication Summary Completed 02/09/2010 Visit Plan: Change Elavil to Trazadone 1 50mg q HS Diflucan and nystatin for tinea cruris 01/05/2010 Appointment: Belia Reidtel: [address] [place] [address] FOLLOW UP 01/05/2010 Patient Education: Patient Medication Summary Completed 01/05/2010 Appointment: Belia Reidtel: [address] [place] [address] FOLLOW UP 12/07/2009 Patient Education: Patient Medication Summary Completed 12/07/2009 Appointment: Belia Reidtel: [address] [place] [address] FOLLOW UP 11/22/2009 Visit Plan: Cont current meds and await MRI results from Dr. Meadows's office and his final recommendations Will need to follow-up at later date on deviated septum 11/08/2009 Appointment: Belia Reidtel: [address] [place] [address] FOLLOW UP 11/08/2009 Patient Education: Patient Medication Summary Completed 11/08/2009 Visit Plan: Cont PT/OT See Neurosurgery Cont Tortoise shell brace 10/24/2009 Appointment: Belia Reidtel: [address] [place], [place] [phone] FOLLOW UP 10/24/2009 Patient Education: Patient Medication Summary Completed 10/24/2009 Appointment: Belia Reid WPtel: [address] [place], [place] [id number] Hospital Follow Up 10/17/2009 Appointment: Belia Reid WPtel: [address] [place], [place] [phone] ACUTE ILLNESS 07/25/2009 Patient Education: Patient Medication Summary Completed 07/25/2009 Appointment: Belia Reid WPtel: [address] [place] [address] FOLLOW UP 05/26/2009 Patient Education: Patient Medication Summary Completed 05/26/2009 Referral: Chino Balderas WPtel: [address] [place], [place] [id number] Referral Initiated Referral: Merry Vale WPtel: [facility] [id number] [place] [address] Vale will review referral and book appointment Completed Referral: Francisco Javier Yoder WPtel: [address] [id number] Patient needs EGD insurance will not inc rease a medication unless this procedure results show a need Completed Referral: Francisco Javier Yoder WPtel: [address] [id number] [place] Referral Historical Reference Referral: Francisco Javier Yoder WPtel: [address] [place] [address] [place] Referral Initiated Instructions Comment . Xrays [...] last date of carotid doppler from her [employer] and update if needed . Long [...] patch left eye while sleeping . To eYssenia Urena for observation to R/O CVA . [...] from "generic Zyrtec they are getting from [employer]" and try Singulair for 2 weeks. . [...]
--- OUTSIDE RECORDS SUMMARY | 2019-08-27 08:09 | XMS REPORT | CCD ---
Author Author Diana Reid D.O. Organization [facility] Address [address] [place] [address] Phone Care Team Providers Care Pocket Stitcher Name Role Phone [facility] PP Unavailable CCM Unavailable Summary Purpose Interface Exchange Insurance Providers Payer name Policy type / Coverage type Covered democrat ID Effective Begin Date Effective End Date [employer] MEDICARE Medicare Part B [id number] 2019 Unknown Family History Family History data not found Social History Social History Element Codes Description Effective Dates Tobacco history SNOMED CT: 813848151 Nonsmoker 09/13/2010 Allergies, Adverse Reactions, Alerts Substance Reaction Codes Entered Date Inactivated Date Status Eggs reaction [id number] 09/15/2015 No Inactive Date Active _ Unknown [...] Fill Instructions Ativan 0.5 mg tablet RxNorm: 446998 1 Tablet(s) Oral th ree times a day for anxiety/shortness of air/stridor 07/29/2019 08/27/2019 Active Singulair 10 mg tablet RxNorm: 913689 1 Tablet(s) Oral QPM 07/29/19 20 01/25/2020 Active diltiazem CD 240 mg capsule,extended release 24 hr RxNorm: 8 57696 1 Capsule(s) Oral QD 07/15/2019 01/10/2020 Active metoprolol tartrate 50 mg tablet RxNorm: 420268 1 Table t(s) Oral two times a day 07/06/2019 No Stop Date Active Novolin N NPH U-100 Insulin isophane 100 unit/mL subcu taneous susp RxNorm: 292083 25 Unit(s) Subcutaneous two times a day 07/06/2019 07/06/2019 I nactive Colestid 1 gram tablet RxNorm: 1144011 1 Tablet(s) Oral two times a day for diarrhea 07/06/2019 09/04/2019 Active pramipexole 1 mg tablet RxNorm: 231569 1 Tablet(s) Oral QPM FOR RESTLESS LEGS (REPLACES REQUIP) 06/25/2019 06/19/2020 Active hydroxyzine HCl 25 mg tablet RxNorm: 834072 1 Tablet(s) Oral QPM for itching/aniety 06/25/2019 09/23/2019 Active Ativan 0.5 mg tablet RxNorm: 211715 1 Tablet(s) Oral th ree times a day for anxiety/shortness of air/stridor 06/25/2019 07/25/2019 Inactive Levaquin 500 mg tablet RxNorm: 262937 1 Tablet(s) Oral QD 06/16/2019 06/23/2019 Inactive Flagyl 500 mg tablet RxNorm: 358466 1 Tablet(s) Oral three time s a day 06/16/2019 06/23/2019 Inactive Vancocin 125 mg capsule RxNorm: 601557 1 Capsule(s) Oral four t imes a day 06/08/2019 06/18/2019 Inactive omeprazole 40 mg capsule,delayed release RxNorm: 208667 1 Capsule(s) Oral two times a day 05/26/2019 11/21/2019 Active Flagyl 500 mg tablet RxNorm: 487696 1 Tablet(s) Oral three time s a day 05/26/2019 06/05/2019 Inactive diltiazem CD 240 mg capsule,extended release 24 hr RxNorm: 8 29153 1 Capsule(s) Oral QD 05/26/2019 07/14/2019 Inactive Cipro 250 mg tablet RxNorm: 349361 1 Tablet(s) Oral two times a day 05/26/2019 06/02/2019 Inactive hydroxyzine HCl 25 mg tablet RxNorm: 398211 1 Tablet(s) Oral QPM for itching/aniety 05/21/2019 06/24/2019 Inactive metoprolol tartrate 25 mg tablet RxNorm: 547946 1 Table t(s) Oral two times a day 05/21/2019 07/05/2019 Inactive hydroxyzine HCl 25 mg tablet RxNorm: 143823 1 Tablet(s) Oral QPM for itching/aniety 05/13/2019 05/20/2019 Inactive Singulair 10 mg tablet RxNorm: 209386 1 Tablet(s) Oral QPM 05/06/1905/12/2019 Inactive gabapentin 600 mg tablet RxNorm: 479988 1 Tablet(s) Oral QD 020 06/05/2019 Inactive Valium 5 mg tablet RxNorm: 523649 1 Tablet(s) Oral QPM for stri joao/muscle spasm 04/29/2019 06/24/2019 Inactive baclofen 10 mg tablet RxNorm: 915643 1 Tablet(s) Oral QPM for s pasm/neck pain 04/24/2019 05/23/2019 Inactive baclofen 10 mg tablet RxNorm: 951090 1 Tablet(s) Oral QPM for s pasm/neck pain 04/24/2019 04/23/2019 Inactive Novolin N NPH U-100 Insulin isophane 100 unit/mL subcu taneous susp RxNorm: 058444 23 Unit(s) Subcutaneous two times a day 04/20/2019 07/05/2019 I nactive cyclobenzaprine 5 mg tablet RxNorm: 432381 1 Tablet(s) Oral three times a day as needed 04/16/2019 04/23/2019 Inactive hydroxyzine HCl 25 mg tablet RxNorm: 211355 1 Tablet(s) Oral three times a day for itching/aniety 04/08/2019 05/12/2019 Inactive gabapentin 600 mg tablet RxNorm: 548107 1 Tablet(s) Oral two ti mes a day 04/08/2019 05/05/2019 Inactive gabapentin 600 mg tablet RxNorm: 942245 1 Tablet(s) Oral two ti mes a day 04/08/2019 04/07/2019 Inactive Novolin N NPH U-100 Insulin isophane 100 unit/mL subcu taneous susp RxNorm: 853878 10 Unit(s) Subcutaneous two times a day 03/03/2019 04/19/2019 I nactive gabapentin 300 mg capsule RxNorm: 293135 1 Capsule(s) O ral every night at bedtime for neuropathy 02/26/2019 04/07/2019 Inactive gabapentin 300 mg capsule RxNorm: 670792 1 Capsule(s) O ral every night at bedtime for neuropathy 02/20/2019 02/25/2019 Inactive buspirone 5 mg tablet RxNorm: 456824 TAKE 1 TABLET THREE TIMES MILDRED Y 02/12/2019 05/12/2019 Inactive pramipexole 1 mg tablet RxNorm: 935553 1 Tablet(s) Oral QPM FOR RESTLESS LEGS (REPLACES REQUIP) 02/12/2019 06/24/2019 Inactive Lexapro 10 mg tablet RxNorm: 401750 TAKE 1 TABLET EVERY DAY FOR MOO D 01/31/2019 No Stop Date Active Ativan 0.5 mg tablet RxNorm: 889598 TAKE 1 TABLET BY MO UT THREE TIMES DAILY NEEDED FOR ANXIETY 01/26/2019 04/28/2019 Inactive Ativan 0.5 mg tablet RxNorm: 513491 TAKE 1 TABLET BY MO UT THREE TIMES DAILY NEEDED FOR ANXIETY 01/05/2019 01/05/2019 Inactive Levaquin 500 mg tablet RxNorm: 981435 1 Tablet(s) Oral QD 12/25/2018 12/24/2018 Inactive Levaquin 500 mg tablet RxNorm: 494827 1 Tablet(s) Oral QD 12/25/2018 01/04/2019 Inactive baclofen 10 mg tablet RxNorm: 668700 1 Tablet(s) Oral three maico es a day 11/20/2018 01/19/2019 Inactive Ativan 0.5 mg tablet RxNorm: 654152 TAKE 1 TABLET BY MO UT THREE TIMES DAILY NEEDED FOR ANXIETY 11/20/2018 01/04/2019 Inactive gabapentin 300 mg capsule RxNorm: 405780 1 Capsule(s) O ral every night at bedtime for neuropathy 11/20/2018 12/20/2018 Inactive Lexapro 10 mg tablet RxNorm: 780401 1 Tablet(s) PO QD for mood 07/201801/30/2019 Inactive Zithromax Z-Lj 250 mg tablet RxNorm: 725461 Tablet(s) PO take as directed 11/04/2018 11/19/2018 Inactive Insulin Syringe 1 mL 29 gauge x 1/2" RxNorm: 2 s yringes daily with insulin Dx: E11.65 10/08/2018 No Stop Date Active gabapentin 300 mg capsule RxNorm: 853470 1 Capsule(s) PO QHS fo r neuropathy 09/18/2018 10/17/2018 Inactive cyclobenzaprine 5 mg tablet RxNorm: 906042 1 Tablet(s) PO TID a s needed 09/09/2018 09/08/2018 Inactive cyclobenzaprine 5 mg tablet RxNorm: 477887 1 Tablet(s) PO TID a s needed 09/09/2018 10/08/2018 Inactive prednisone 20 mg tablet RxNorm: 684556 1 Tablet(s) PO QD 09/08/2018 0 09/12/2018 Inactive Lantus Solostar U-100 Insulin 100 unit/mL (3 mL) subcu taneous pen RxNorm: 165474 55 Unit(s) SQ QAM 08/28/2018 11/03/2018 Inactive hydroxyzine HCl 25 mg tablet RxNorm: 533807 1 Tablet(s) PO QHS for itching 08/20/2018 05/12/2019 Inactive Lexapro 10 mg tablet RxNorm: 961342 1 Tablet(s) PO QD for mood 08/0210/18/2018 Inactive sumatriptan 100 mg tablet RxNorm: 041913 1 Tablet(s) PO at headache onset. May repeat 1 in two hours if headache remains. Max of 2 per 24 hours 04/02/2018 05/20/2018 Inactive Diflucan 150 mg tablet RxNorm: 417368 1 Tablet(s) PO QD 03/18/2018 Inactive Diflucan 150 mg tablet RxNorm: 983552 1 Tablet(s) PO QD 03/18/2018 Inactive Flagyl 500 mg tablet RxNorm: 400885 1 Tablet(s) PO TID 03/17/2018 Inactive Levaquin 500 mg tablet RxNorm: 214922 1 Tablet(s) PO QD 03/17/2018 Inactive Levaquin 500 mg tablet RxNorm: 580955 1 Tablet(s) PO QD 03/17/2018 Inactive Flagyl 500 mg tablet RxNorm: 862159 1 Tablet(s) PO TID 03/17/2018 Inactive ketoconazole 200 mg tablet RxNorm: 210282 1 Tablet(s) PO QD 019 03/19/2018 Inactive Celebrex 200 mg capsule RxNorm: 730716 1 Capsule(s) PO BID 02/06/20 18 05/20/2018 Inactive tramadol 50 mg tablet RxNorm: 262239 1 Tablet(s) PO TID as needed 1 04/08/2017 05/20/2018 Inactive gabapentin 300 mg capsule RxNorm: 270855 1 Capsule(s) PO BID 201705/20/2018 Inactive Diflucan 150 mg tablet RxNorm: 970323 1 Tablet(s) PO QD 01/20/2018 Inactive pramipexole 1 mg tablet RxNorm: 434646 1 Tablet(s) PO Q PM FOR RESTLESS LEGS (REPLACES REQUIP) 01/08/2018 02/11/2019 Inactive cyclobenzaprine 10 mg tablet RxNorm: 741442 1 Tablet(s) PO TID as needed for muscle spasm 12/17/2017 05/20/2018 Inactive pramipexole 1 mg tablet RxNorm: 406228 TAKE 1 TABLET BY MOUTH ONCE DAILY IN THE EVENING FOR RESTLESS LEGS (REPLACES REQUIP) 12/04/2017 01/05/2018 Inac tive Amaryl 4 mg tablet RxNorm: 426968 1 Tablet(s) PO BID replaces 2mg 0 11/05/2017 12/16/2017 Inactive Singulair 10 mg tablet RxNorm: 337420 1 Tablet(s) PO QHS for al lergies/lungs 10/30/2017 12/16/2017 Inactive Diflucan 100 mg tablet RxNorm: 454090 1 Tablet(s) PO QD 10/23/2017 Inactive Ativan 0.5 mg tablet RxNorm: 507685 TAKE 1 TABLET BY MOUTH THRE E TIMES DAILY 08/30/2017 11/20/2018 Inactive buspirone 5 mg tablet RxNorm: 187465 1 Tablet(s) PO TID 07/11/2017 Inactive propranolol 60 mg tablet RxNorm: 871228 1 Tablet(s) PO BID repl aces 40mg dose 06/26/2017 12/16/2017 Inactive Amaryl 4 mg tablet RxNorm: 627648 1 Tablet(s) PO BID replaces 2mg 0 06/12/2017 11/05/2017 Inactive omeprazole 40 mg capsule,delayed release RxNorm: 714746 1 Capsule(s) PO BID TAKE ONE CAPSULE BY MOUTH TWICE DAILY 05/30/2017 11/25/2017 Inactive pramipexole 1 mg tablet RxNorm: 837761 1 Tablet(s) PO Q PM for restless legs--replaces requip 05/30/2017 11/25/2017 Inactive amitriptyline 50 mg tablet RxNorm: 843694 1 Tablet(s) PO QHS 201709/16/2017 Inactive Diflucan 100 mg tablet RxNorm: 319483 1 Tablet(s) PO BID 05/07/2017 0 05/20/2017 Inactive nystatin (bulk) 100 million unit powder RxNorm: Application TO P BID 05/07/2017 05/20/2018 Inactive cholestyramine (with sugar) 4 gram oral powder RxNorm: 079027 1 Unit Dose PO QD 05/07/2017 01/20/2018 Inactive Ativan 0.5 mg tablet RxNorm: 217753 TAKE ONE TABLET BY MOUTH TH REE TIMES DAILY 05/01/2017 09/02/2017 Inactive Trulicity 1.5 mg/0.5 mL subcutaneous pen injector RxNorm: 15 55216 1 Unit Dose SQ WEEKLY 02/22/2017 03/23/2017 Inactive doxycycline hyclate 100 mg capsule RxNorm: 2095863 1 Capsule(s) PO BID 01/23/2017 02/05/2017 Inactive Amaryl 4 mg tablet RxNorm: 634174 1 Tablet(s) PO BID replaces 2mg 1 03/25/2016 05/22/2017 Inactive magnesium oxide 400 mg capsule RxNorm: 845112 1 Capsule(s) PO QD 07/18/2017 Inactive Ativan 0.5 mg tablet RxNorm: 620099 TAKE ONE TABLET BY MOUTH TH REE TIMES DAILY 01/17/2017 05/01/2017 Inactive Amaryl 2 mg tablet RxNorm: 085611 1 Tablet(s) PO BID 12/27/201601/22 Inactive Amaryl 2 mg tablet RxNorm: 749880 1 Tablet(s) PO BID 12/26/201612/26 Inactive Ativan 0.5 mg tablet RxNorm: 212195 TAKE ONE TABLET BY MOUTH TH REE TIMES DAILY 12/05/2016 01/18/2017 Inactive pramipexole 1 mg tablet RxNorm: 174014 1 Tablet(s) PO Q PM for restless legs--replaces requip 11/26/2016 05/30/2017 Inactive Mobic 15 mg tablet RxNorm: 259185 1 Tablet(s) PO QD 10/08/20162016 Inactive cyclobenzaprine 5 mg tablet RxNorm: 268946 1/2- 1 Tablet(s) PO TID 10/08/2016 10/17/2016 Inactive Ativan 0.5 mg tablet RxNorm: 500971 1 Tablet(s) PO TID 09/20/201607/2016 Inactive amitriptyline 50 mg tablet RxNorm: 427005 1 Tablet(s) PO QHS 201605/30/2017 Inactive propranolol 60 mg tablet RxNorm: 568609 1 Tablet(s) PO BID repl aces 40mg dose 09/19/2016 06/26/2017 Inactive Ativan 0.5 mg tablet RxNorm: 489832 1 Tablet(s) PO TID 08/20/2016 Inactive omeprazole 40 mg capsule,delayed release RxNorm: 828727 1 Capsule(s) PO BID TAKE ONE CAPSULE BY MOUTH TWICE DAILY 08/20/2016 05/30/2017 Inactive amitriptyline 50 mg tablet RxNorm: 230583 1 Tablet(s) PO QHS 201609/18/2016 Inactive pramipexole 1 mg tablet RxNorm: 700891 1 Tablet(s) PO Q PM for restless legs--replaces requip 07/23/2016 11/25/2016 Inactive Amaryl 2 mg tablet RxNorm: 752475 1 Tablet(s) PO BID 07/23/201612/27 Inactive propranolol 40 mg tablet RxNorm: 484054 1 Tablet(s) PO BID 07/13/19 17 09/18/2016 Inactive Ativan 0.5 mg tablet RxNorm: 014842 1 Tablet(s) PO QID 06/19/2016 Inactive Amaryl 2 mg tablet RxNorm: 117622 1 Tablet(s) PO BID 06/19/201607/22 Inactive Ativan 0.5 mg tablet RxNorm: 758762 1 Tablet(s) PO QID 06/19/2016 Inactive buspirone 5 mg tablet RxNorm: 402152 1 Tablet(s) PO TID 06/19/2016 Inactive Ativan 0.5 mg tablet RxNorm: 922741 1 Tablet(s) PO BID 05/24/2016 Inactive buspirone 5 mg tablet RxNorm: 044145 1 Tablet(s) PO TID 05/23/2016 Inactive Macrobid 100 mg capsule RxNorm: 786463 1 Capsule(s) PO QOD 05/03/19 17 10/07/2016 Inactive pramipexole 1 mg tablet RxNorm: 871192 Tablet(s) 1 Tabl et(s) PO QPM for restless legs--replaces requip 04/26/2016 06/24/2016 Inactive propranolol 40 mg tablet RxNorm: 917398 TAKE ONE TABLET BY MOUT H TWICE DAILY 04/26/2016 06/24/2016 Inactive Detrol LA 4 mg capsule,extended release RxNorm: 502997 1 Capsul e(s) PO QHS 04/03/2016 05/02/2016 Inactive prednisone 20 mg tablet RxNorm: 738833 1 Tablet(s) PO QD 02/29/2016 0 03/04/2016 Inactive Actos 30 mg tablet RxNorm: 270597 TAKE ONE TABLET BY MOUTH ONCE DAILY 02/27/2016 12/19/2016 Inactive clindamycin 300 mg capsule RxNorm: 720498 1 Capsule(s) PO TID 02/0102/08/2016 Inactive Flagyl 500 mg tablet RxNorm: 123988 1 Tablet(s) PO BID 02/02/201609/2015 Inactive omeprazole 40 mg capsule,delayed release RxNorm: 130051 TAKE ONE CAPSULE BY MOUTH TWICE DAILY 01/15/2016 07/12/2016 Inactive gabapentin 300 mg capsule RxNorm: 612385 1 Capsule(s) PO QAM an d 2 po q HS 01/05/2016 06/18/2016 Inactive gabapentin 300 mg capsule RxNorm: 974232 1 Capsule(s) P O BID 1 Capsule(s) PO QHS 12/05/2015 01/04/2016 Inactive cyclobenzaprine 10 mg tablet RxNorm: 790381 1 Tablet(s) PO TID for spasm as needed for muscle spasm 12/05/2015 06/18/2016 Inactive ciprofloxacin 250 mg tablet RxNorm: 991663 1 Tablet(s) PO BID 12/0412/14/2015 Inactive pramipexole 1 mg tablet RxNorm: 622145 Tablet(s) 1 Tabl et(s) PO QPM for restless legs--replaces requip 11/07/2015 11/26/2016 Inactive Januvia 100 mg tablet RxNorm: 215647 1 Tablet(s) PO QD 10/26/201504/2015 Inactive propranolol 40 mg tablet RxNorm: 659188 TAKE ONE TABLET BY MOUT H TWICE DAILY 10/25/2015 04/21/2016 Inactive gabapentin 300 mg capsule RxNorm: 099829 1 Capsule(s) PO QHS 201512/04/2015 Inactive Cipro 500 mg tablet RxNorm: 143754 1 Tablet(s) PO BID 10/05/2015 0811/2015 Inactive pramipexole 1 mg tablet RxNorm: 646068 Tablet(s) 1 Tabl et(s) PO QPM for restless legs--replaces requip 10/04/2015 11/02/2015 Inactive propranolol 40 mg tablet RxNorm: 047335 TAKE ONE TABLET BY MOUT H TWICE DAILY 09/26/2015 10/24/2015 Inactive Amaryl 2 mg tablet RxNorm: 987990 1 Tablet(s) PO QD 09/15/20152016 Inactive gabapentin 300 mg capsule RxNorm: 844901 1 Capsule(s) PO QHS 201510/14/2015 Inactive buspirone 5 mg tablet RxNorm: 875828 1 Tablet(s) PO TID 09/15/2015 Inactive pramipexole 1 mg tablet RxNorm: 142487 Tablet(s) 1 Tabl et(s) PO QPM for restless legs--replaces requip 09/08/2015 10/03/2015 Inactive pramipexole 1 mg tablet RxNorm: 596499 1 Tablet(s) PO Q PM for restless legs--replaces requip 08/08/2015 09/08/2015 Inactive Amaryl 2 mg tablet RxNorm: 363643 1 Tablet(s) PO QD 07/07/20152015 Inactive pramipexole 1 mg tablet RxNorm: 192209 1 Tablet(s) PO Q PM for restless legs--replaces requip 07/05/2015 08/03/2015 Inactive ropinirole 2 mg tablet RxNorm: 844007 TAKE ONE TABLET BY MOUTH TWICE DAILY 05/09/2015 09/14/2015 Inactive Diflucan 100 mg tablet RxNorm: 838153 1 Tablet(s) PO QD 03/30/2015 Inactive propranolol 40 mg tablet RxNorm: 425535 1 Tablet(s) PO BID 02/24/20 15 08/21/2015 Inactive [SAVINGS FOR UNINSURED PATIE NTS -- BIN:764091, PCN: ASPROD1, Group: AME08, ID# [id number], Process claim through [employer], for questions: . THIS IS NOT INSURANCE.] Flagyl 500 mg tablet RxNorm: 253961 1 Tablet(s) PO BID 02/03/201502/2015 Inactive Cipro 500 mg tablet RxNorm: 913561 1 Tablet(s) PO BID 02/03/201502/01 Inactive Carafate 1 gram tablet RxNorm: 548393 1 Tablet(s) PO QID make i nto slurry 02/03/2015 09/14/2015 Inactive ondansetron HCl 4 mg tablet RxNorm: 463985 1 Tablet(s) PO Q4H as needed for nausea 12/29/2014 01/04/2016 Inactive Diflucan 100 mg tablet RxNorm: 637518 1 Tablet(s) PO QD 12/29/2014 Inactive Keflex 500 mg capsule RxNorm: 852780 1 Capsule(s) PO TID 12/29/2014 1 03/09/2014 Inactive omeprazole 40 mg capsule,delayed release RxNorm: 692544 1 Capsu le(s) PO BID 12/27/2014 12/21/2015 Inactive [SAVINGS FOR UNINSUR ED PATIENTS -- BIN:446669, PCN: ASPROD1, Group: AME08, ID# [id number], Process claim through [employer], for questions: . THIS IS NOT INSURANCE.] ropinirole 2 mg tablet RxNorm: 649102 1 Tablet(s) PO BID 09/29/2014 0 03/27/2015 Inactive [SAVINGS FOR UNINSURED PATIENTS -- BIN:0 42457, PCN: ASPROD1, Group: AME08, ID# [id number], Process claim through [employer], for questions: . THIS IS NOT INSURANCE.] buspirone 5 mg tablet RxNorm: 697164 1 Tablet(s) PO TID 09/17/2014 Inactive ropinirole 2 mg tablet RxNorm: 007198 1 Tablet(s) PO BID 09/02/2014 0 09/28/2014 Inactive [SAVINGS FOR UNINSURED PATIENTS -- BIN:0 34255, PCN: ASPROD1, Group: AME08, ID# [id number], Process claim through [employer], for questions: . THIS IS NOT INSURANCE.] Zyrtec 10 mg tablet RxNorm: 3847666 1 Tablet(s) PO QD 09/02/201412/02 Inactive propranolol 40 mg tablet RxNorm: 233149 1 Tablet(s) PO BID 07/21/19 15 02/23/2015 Inactive [SAVINGS FOR UNINSURED PATIE NTS -- BIN:160186, PCN: ASPROD1, Group: AME08, ID# [id number], Process claim through [employer], for questions: . THIS IS NOT INSURANCE.] ropinirole 2 mg tablet RxNorm: 477491 1 Tablet(s) PO QHS 05/14/2014 0 09/01/2014 Inactive [SAVINGS FOR UNINSURED PATIENTS -- BIN:0 24565, PCN: ASPROD1, Group: AME08, ID# [id number], Process claim through [employer], for questions: . THIS IS NOT INSURANCE.] cyclobenzaprine 10 mg tablet RxNorm: 466605 1 Tablet(s) PO QHS for spasm 04/06/2014 09/01/2014 Inactive ipratropium-albuterol 0.5 mg-3 mg(2.5 mg base)/3 mL ne bulization soln RxNorm: 2324505 1 Unit Dose INH Q4H 03/16/2014 No Stop Date Active [SAVINGS FOR UNINSURED PATIENTS -- BIN:031885, PCN: ASPROD1, Group: AME08, ID# [id number], Process claim through [employer], for questions: . THIS IS NOT INSURANCE.] prednisone 20 mg tablet RxNorm: 655564 1 Tablet(s) PO BID 03/09/2014 03/15/2014 Inactive [SAVINGS FOR UNINSURED PATIENTS -- BIN:0 96564, PCN: ASPROD1, Group: AME08, ID# [id number], Process claim through [employer], for questions: . THIS IS NOT INSURANCE.] ipratropium-albuterol 0.5 mg-3 mg(2.5 mg base)/3 mL ne bulization soln RxNorm: 2953238 1 Unit Dose INH Q4H 03/09/2014 03/15/2014 Inactive [SAVINGS FOR UNINSURED PATIENTS -- BIN:576918, PCN: ASPROD1, Group: AME08, ID# [id number], Process claim through [employer], for questions: . THIS IS NOT INSURANCE.] Levaquin 500 mg tablet RxNorm: 123691 1 Tablet(s) PO QD 03/09/2014 Inactive [SAVINGS FOR UNINSURED PATIENTS -- BIN:0 64133, PCN: ASPROD1, Group: AME08, ID# [id number], Process claim through [employer], for questions: . THIS IS NOT INSURANCE.] Carafate 1 gram tablet RxNorm: 652335 1 Tablet(s) PO AC & HS ma ke into slurry 02/09/2014 09/01/2014 Inactive [SAVINGS FOR UNINSUR ED PATIENTS -- BIN:107498, PCN: ASPROD1, Group: AME08, ID# [id number], Process claim through [employer], for questions: . THIS IS NOT INSURANCE.] Fioricet 50 mg-300 mg-40 mg capsule RxNorm: 0083838 1-2 Capsule(s) PO Q4H as needed for headache --max of 6 a day 02/09/2014 09/01/2014 Inactive [SAVINGS FOR UNINSURED PATIENTS -- BIN:160193, PCN: ASPROD1, Group: AME08, ID# [id number], Process claim through [employer], for questions: . THIS IS NOT INSURANCE.] propranolol 40 mg tablet RxNorm: 275893 1 Tablet(s) PO BID 12/08/19 14 06/04/2014 Inactive [SAVINGS FOR UNINSURED PATIE NTS -- BIN:513711, PCN: ASPROD1, Group: AME08, ID# [id number], Process claim through [employer], for questions: . THIS IS NOT INSURANCE.] buspirone 5 mg tablet RxNorm: 370100 1 Tablet(s) PO TID 12/02/2013 Inactive omeprazole 40 mg capsule,delayed release RxNorm: 275668 1 Capsu le(s) PO BID 11/25/2013 11/19/2014 Inactive [SAVINGS FOR UNINSUR ED PATIENTS -- BIN:185447, PCN: ASPROD1, Group: AME08, ID# [id number], Process claim through [employer], for questions: . THIS IS NOT INSURANCE.] ropinirole 2 mg tablet RxNorm: 685846 1 Tablet(s) PO QHS 11/10/2013 0 05/08/2014 Inactive [SAVINGS FOR UNINSURED PATIENTS -- BIN:0 93753, PCN: ASPROD1, Group: AME08, ID# [id number], Process claim through [employer], for questions: . THIS IS NOT INSURANCE.] Cipro 500 mg tablet RxNorm: 016247 1 Tablet(s) PO BID 10/21/201312/03 Inactive [SAVINGS FOR UNINSURED PATIENTS -- BIN:0 49766, PCN: ASPROD1, Group: AME08, ID# [id number], Process claim through [employer], for questions: . THIS IS NOT INSURANCE.] hydroxyzine HCl 25 mg tablet RxNorm: 658684 1 Tablet(s) PO Q4-6 H as needed 10/05/2013 01/04/2016 Inactive [SAVINGS FOR UNINSUR ED PATIENTS -- BIN:937326, PCN: ASPROD1, Group: AME08, ID# [id number], Process claim through [employer], for questions: . THIS IS NOT INSURANCE.] triamcinolone acetonide 0.1 % topical cream RxNorm: 5675015 Appl ication TOP BID 10/05/2013 09/01/2014 Inactive [SAVINGS FOR UNINSUR ED PATIENTS -- BIN:767043, PCN: ASPROD1, Group: AME08, ID# [id number], Process claim through [employer], for questions: . THIS IS NOT INSURANCE.] albuterol sulfate HFA 90 mcg/actuation aerosol inhaler RxNor m: 1308594 2 Puff(s) INH Q4H as needed for cough 10/01/2013 12/22/2013 Inactive [MAKSIM INGS FOR UNINSURED PATIENTS -- BIN:178231, PCN: ASPROD1, Group: AME08, ID# [id number], Process claim through [employer], for questions: . THIS IS NOT INSURANCE.] propranolol 40 mg tablet RxNorm: 624702 1 Tablet(s) PO BID 09/02/19 14 11/29/2013 Inactive [SAVINGS FOR UNINSURED PATIE NTS -- BIN:186251, PCN: ASPROD1, Group: AME08, ID# [id number], Process claim through [employer], for questions: . THIS IS NOT INSURANCE.] propranolol 40 mg tablet RxNorm: 414642 1 Tablet(s) PO BID 08/05/19 14 08/31/2013 Inactive [SAVINGS FOR UNINSURED PATIE NTS -- BIN:177449, PCN: ASPROD1, Group: AME08, ID# [id number], Process claim through [employer], for questions: . THIS IS NOT INSURANCE.] Toprol XL 50 mg tablet,extended release RxNorm: 922866 1 Tablet (s) PO QHS 07/23/2013 08/03/2013 Inactive Macrobid 100 mg capsule RxNorm: 815147 1 Capsule(s) PO BID 07/04/19 14 07/09/2013 Inactive Toprol XL 50 mg tablet,extended release RxNorm: 109100 1 Tablet (s) PO QHS 05/28/2013 06/26/2013 Inactive ciprofloxacin 500 mg tablet RxNorm: 909307 1 Tablet(s) PO BID 05/2706/02/2013 Inactive Bystolic 5 mg tablet RxNorm: 799412 1 Tablet(s) PO QD 05/27/201305/03 Inactive ropinirole 2 mg tablet RxNorm: 305876 1 Tablet(s) PO QHS 04/22/2013 0 11/09/2013 Inactive Cipro 250 mg tablet RxNorm: 966703 1 Tablet(s) PO BID 04/06/201311/2013 Inactive ropinirole 2 mg tablet RxNorm: 089729 1 Tablet(s) PO QHS 02/17/2013 0 04/21/2013 Inactive Amaryl 2 mg tablet RxNorm: 055067 1 Tablet(s) PO QAM 11/11/201211/10 Inactive Amaryl 2 mg tablet RxNorm: 017689 1 Tablet(s) PO QAM 11/11/201204/05 Inactive omeprazole 40 mg capsule,delayed release RxNorm: 208961 1 Capsu le(s) PO BID 08/14/2012 08/08/2013 Inactive Bystolic 5 mg tablet RxNorm: 734550 1 Tablet(s) PO QD 08/14/201205/03 Inactive propranolol 60 mg tablet RxNorm: 254162 Tablet(s) PO TAKE 1 TAB LET TWICE DAILY 08/01/2012 09/01/2012 Inactive Bystolic 5 mg tablet RxNorm: 984165 1 Tablet(s) PO QD 07/21/201207/02 Inactive Bystolic 5 mg tablet RxNorm: 484293 1 Tablet(s) PO QD 07/21/201207/03 Inactive Prilosec 40 mg capsule,delayed release RxNorm: 216777 1 Capsule (s) PO BID 06/24/2012 07/21/2012 Inactive buspirone 10 mg tablet RxNorm: 964777 1 Tablet(s) PO TID 05/08/2012 0 05/23/2016 Inactive Valium 10 mg tablet RxNorm: 284060 1 Tablet(s) PO BID 04/02/201207/03 Inactive Endocet 10 mg-325 mg tablet RxNorm: 1613726 1 Tablet(s) PO QID 03/0607/21/2012 Inactive as needed for severe pain Valium 10 mg tablet RxNorm: 798525 1 Tablet(s) PO BID 02/27/2012 No S top Date Active Endocet 10 mg-325 mg tablet RxNorm: 6121295 1 Tablet(s) PO QID 02/0203/27/2012 Inactive as needed for severe pain Endocet 10 mg-325 mg tablet RxNorm: 2443563 1 Tablet(s) PO QID 01/0302/26/2012 Inactive as needed for severe pain Valium 10 mg tablet RxNorm: 883687 1 Tablet(s) PO BID 01/29/2012 No S top Date Active Protonix 40 mg tablet,delayed release RxNorm: 962381 1 Tablet(s ) PO QD 01/28/2012 07/21/2012 Inactive metformin ER 500 mg tablet,extended release 24 hr RxNorm: 86 0977 1 Tablet(s) PO QD 12/26/2011 07/20/2012 Inactive Trazadone 150 mg Tablet RxNorm: 1 Tablet(s) PO QHS prn sleep 1 04/23/2012 Inactive Endocet 10 mg-325 mg tablet RxNorm: 0746668 1 Tablet(s) PO QID 12/0301/24/2012 Inactive as needed for severe pain Nexium 40 mg capsule,delayed release RxNorm: 996797 1 Capsule(s ) PO QD 12/26/2011 01/27/2012 Inactive Symbicort 160 mcg-4.5 mcg/actuation HFA Aerosol Inhaler RxNo rm: 4074132 2 Puff(s) INH BID 12/04/2011 07/21/2012 Inactive Endocet 10 mg-325 mg tablet RxNorm: 7085191 1 Tablet(s) PO QID 11/0312/25/2011 Inactive as needed for severe pain metformin ER 500 mg tablet,extended release 24 hr RxNorm: 86 0977 1 Tablet(s) PO QD 11/20/2011 12/19/2011 Inactive metformin ER 500 mg tablet,extended release 24 hr RxNorm: 86 0977 1 Tablet(s) PO QD 11/20/2011 11/19/2011 Inactive amitriptyline 100 mg tablet RxNorm: 512566 Tablet(s) PO QHS 1 a nd /2 tabs QHS 11/12/2011 11/13/2011 Inactive Valium 10 mg tablet RxNorm: 595576 1 Tablet(s) PO BID 11/09/2011 No S top Date Active Endocet 10 mg-325 mg tablet RxNorm: 5150028 1 Tablet(s) PO QID 10/0211/14/2011 Inactive as needed for severe pain Aricept 10 mg Tab RxNorm: 407231 1 Tablet(s) PO QD 10/05/2011 013 Inactive Valium 10 mg tablet RxNorm: 139290 1 Tablet(s) PO BID 10/05/2011 No S top Date Active Endocet 10 mg-325 mg Tab RxNorm: 8711104 1 Tablet(s) PO QID 012 10/09/2011 Inactive as needed for severe pain Aricept 10 mg Tab RxNorm: 951119 1 Tablet(s) PO QD 08/14/2011 012 Inactive Endocet 10 mg-325 mg Tab RxNorm: 0354866 1 Tablet(s) PO QID 012 08/31/2011 Inactive as needed for severe pain Valium 10 mg Tab RxNorm: 856215 1 Tablet(s) PO BID 08/02/2011 No Stop Date Active propranolol 60 mg tablet RxNorm: 539406 1 Tablet(s) PO BID 07/26/19 12 09/11/2011 Inactive amitriptyline 100 mg tablet RxNorm: 321706 Tablet(s) PO QHS 1 a nd 1/2 tabs QHS 06/20/2011 09/11/2011 Inactive buspirone 10 mg tablet RxNorm: 926717 1 Tablet(s) PO BID 06/18/2011 0 09/15/2011 Inactive propranolol 60 mg Tab RxNorm: 911901 1 Tablet(s) PO BID 06/18/2011 Inactive gabapentin 800 mg Tab RxNorm: 145534 1 Tablet(s) PO BID 06/18/2011 Inactive ropinirole 2 mg tablet RxNorm: 308198 1 Tablet(s) PO QHS 05/29/2011 0 08/26/2011 Inactive trimethoprim 100 mg Tab RxNorm: 178539 1 Tablet(s) PO QHS 05/29/2011 07/21/2012 Inactive Endocet 10 mg-325 mg Tab RxNorm: 1689033 1 Tablet(s) PO QID 012 2011 Inactive as needed for severe pain Valium 10 mg Tab RxNorm: 928165 1 Tablet(s) PO QHS N eed to take med as prescribed. this is a 40 day RX. No early fills. 05/17/2011 05/20/2018 Inactive propranolol 60 mg Tab RxNorm: 044057 1 Tablet(s) PO BID 04/16/2011 Inactive Neurontin 800 mg Tab RxNorm: 450096 1 Tablet(s) PO QHS 04/05/201103/2011 Inactive Endocet 10 mg-325 mg Tab RxNorm: 3484133 1 Tablet(s) PO QID 012 05/02/2011 Inactive as needed for severe pain oxycodone-acetaminophen 10 mg-325 mg tablet RxNorm: 4792089 1 Ta blet(s) PO Q4H 03/28/2011 05/19/2012 Inactive Valium 10 mg Tab RxNorm: 219695 1 Tablet(s) PO QHS 03/28/2011 012 Inactive buspirone 10 mg Tab RxNorm: 174518 1 Tablet(s) PO BID 03/27/201106/02 Inactive propranolol 60 mg Tab RxNorm: 976387 1 Tablet(s) PO BID 03/19/2011 Inactive Klor-Con M20 20 mEq Tab RxNorm: 3756651 1 Tablet(s) PO QD 03/19/2011 07/21/2012 Inactive Aricept 10 mg Tab RxNorm: 715288 1 Tablet(s) PO QD 02/27/2011 012 Inactive propranolol 60 mg Tab RxNorm: 937890 1 Tablet(s) PO BID 02/19/2011 Inactive omeprazole 40 mg capsule,delayed release RxNorm: 638863 1 Capsu le(s) PO BID 01/24/2011 05/23/2011 Inactive clindamycin 300 mg capsule RxNorm: 780015 1 Capsule(s) PO TID 01/2402/02/2011 Inactive propranolol 60 mg Tab RxNorm: 499925 1 Tablet(s) PO BID 01/22/2011 No Stop Date Active nystatin 100,000 unit/g Topical Cream RxNorm: 976319 Applicatio n TOP BID 01/15/2011 01/14/2011 Inactive to rash for 2-4 week s Diflucan 200 mg Tab RxNorm: 266137 1 Tablet(s) PO QD 01/15/201101/28 Inactive buspirone 10 mg Tab RxNorm: 676585 1 Tablet(s) PO BID 01/08/201103/05 Inactive Valium 10 mg Tab RxNorm: 789218 1 Tablet(s) PO QHS 01/05/2011 012 Inactive Diflucan 200 mg Tab RxNorm: 772326 1 Tablet(s) PO QD 01/01/201101/14 Inactive Diflucan 200 mg Tab RxNorm: 663986 1 Tablet(s) PO QD 12/18/201012/31 Inactive Valium 10 mg Tab RxNorm: 260492 1 Tablet(s) PO QHS 12/12/2010 011 Inactive Diflucan 200 mg Tab RxNorm: 020818 1 Tablet(s) PO QD 12/07/201012/18 Inactive Aricept 10 mg Tab RxNorm: 194253 1 Tablet(s) PO QD 11/20/2010 011 Inactive ropinirole 1 mg Tab RxNorm: 729784 1 Tablet(s) PO QHS 11/16/201005/03 Inactive enalapril maleate 5 mg Tab RxNorm: 360122 1 Tablet(s) PO QD 011 05/20/2018 Inactive buspirone 10 mg Tab RxNorm: 198170 1 Tablet(s) PO BID 11/16/201012/02 Inactive Valium 10 mg Tab RxNorm: 980266 1 Tablet(s) PO QHS 11/07/2010 011 Inactive Pyridium 100 mg Tab RxNorm: 3524531 1 Tablet(s) PO TID 11/02/201004/2010 Inactive Macrobid 100 mg Cap RxNorm: 0911517 1 Capsule(s) PO BID 11/02/2010 Inactive buspirone 10 mg Tab RxNorm: 535918 1 Tablet(s) PO QHS 10/18/201005/02 Inactive propranolol 60 mg Tab RxNorm: 982453 1 Tablet(s) PO BID 09/18/2010 Inactive Valium 10 mg Tab RxNorm: 205960 1 Tablet(s) PO QHS 09/05/2010 011 Inactive Aricept 10 mg Tab RxNorm: 091220 1 Tablet(s) PO QD 08/14/2010 011 Inactive Valium 10 mg Tab RxNorm: 365993 1 Tablet(s) PO QHS 06/26/2010 011 Inactive ropinirole 1 mg Tab RxNorm: 211378 1 Tablet(s) PO QHS 06/19/201010/02 Inactive omeprazole 40 mg Cap, delayed release RxNorm: 623916 1 Capsule( s) PO QD 06/07/2010 10/04/2010 Inactive Endocet 10 mg-325 mg Tab RxNorm: 3373309 1 Tablet(s) PO QID as needed for severe pain 06/07/2010 03/07/2011 Inactive Endocet 10 mg-325 mg Tab RxNorm: 5722646 1 Tablet(s) PO QID as needed for severe pain 05/04/2010 06/02/2010 Inactive Valium 10 mg Tab RxNorm: 336059 1 Tablet(s) PO QHS 05/01/2010 011 Inactive propranolol 60 mg Tab RxNorm: 025387 1 Tablet(s) PO BID 04/03/2010 Inactive Valium 10 mg Tab RxNorm: 369276 1 Tablet(s) PO QHS 03/28/2010 011 Inactive omeprazole 40 mg Cap, Delayed Release RxNorm: 880261 1 Capsule( s) PO QD 03/28/2010 06/06/2010 Inactive Endocet 10 mg-325 mg Tab RxNorm: 8849197 1 Tablet(s) PO QID prn ari n 03/27/2010 05/20/2018 Inactive Valium 10 mg Tab RxNorm: 380827 1 Tablet(s) PO QHS 02/20/2010 011 Inactive Diflucan 100 mg Tab RxNorm: 746978 1 Tablet(s) PO BID 01/23/201003/2009 Inactive Diflucan 100 mg Tab RxNorm: 498260 1 Tablet(s) PO BID 01/05/201001/02 Inactive Aricept 10 mg Tab RxNorm: 355243 1 Tablet(s) PO QD 12/01/2009 011 Inactive OxyContin 20 mg 12 hr Tab RxNorm: 0467688 1 Tablet(s) PO BID 200904/05/2010 Inactive oxycodone-acetaminophen 10 mg-325 mg Tab RxNorm: 0055756 1 Table t(s) PO Q4H 11/22/2009 11/26/2009 Inactive Phenergan 25 mg Tab RxNorm: 552143 1 Tablet(s) PO PRN MIGRAINE 11/0303/07/2011 Inactive Demerol 100 mg Tab RxNorm: 635965 1 Tablet(s) PO PRN MIGRAINE 11/2203/07/2011 Inactive Oxycodone-Acetaminophen 10 mg-325 mg Tab RxNorm: 8962034 1 Table t(s) PO Q4H 10/11/2009 10/15/2009 Inactive Percocet 10 mg-325 mg Tab RxNorm: 3007390 1 Tablet(s) PO Q4H 200910/24/2009 Inactive propranolol 60 mg Tab RxNorm: 800733 1 Tablet(s) PO BID 08/29/2009 Inactive Valium 10 mg Tab RxNorm: 278443 1 Tablet(s) PO QHS 08/16/2009 010 Inactive Keflex 500 mg Cap RxNorm: 928749 1 Capsule(s) PO BID 07/25/200907/31 Inactive Hydroxyzine 25 mg Tab RxNorm: 389588 1 Tablet(s) PO TID 07/25/2009 Inactive Prednisone 20 mg Tab RxNorm: 081620 1 Tablet(s) PO BID 07/25/2009 Inactive Demerol 100 mg Tab RxNorm: 588981 1 Tablet(s) PO PRN MIGRAINE 07/25 No Stop Date Active Ropinirole 1 mg Tab RxNorm: 331307 1 Tablet(s) PO HS 07/20/200902/14 Inactive Valium 10 mg Tab RxNorm: 654093 1 Tablet(s) PO QHS 07/18/2009 010 Inactive Endocet 10 mg-325 mg Tab RxNorm: 7998535 1 Tablet(s) PO TID 010 07/07/2009 Inactive Demerol 100 mg Tab RxNorm: 161826 1 Tablet(s) PO PRN MIGRAINE 06/08 No Stop Date Active Ropinirole 1 mg Tab RxNorm: 025093 1 Tablet(s) PO HS 05/16/200907/14 Inactive ipratropium-albuterol 0.5 mg-3 mg(2.5 mg base)/3 mL ne bulization soln RxNorm: 5149384 1 Unit Dose INH Q4H as needed No Start Date Active MagOx 400 mg (241.3 mg magnesium) tablet RxNorm: 091773 1 Table t(s) PO BID No Start Date Active Vitamin B12 1000mcg Tablet RxNorm: 1 Tablet(s) PO QD No Start Date Active Vitamin D3 5,000 unit tablet RxNorm: 995543 1 Tablet(s) PO QD No Star t Date Active Tylenol Arthritis Pain 650 mg tablet,extended release RxNorm : 4644460 1 Tablet(s) PO Q4H No Start Date Active Lotrimin AF 2 % topical powder RxNorm: 075014 1 Application TOP BID No Start Date Active enalapril maleate 5 mg Tab RxNorm: 912421 1 Tablet(s) PO QD No Star t Date 07/20/2012 Inactive Demerol 100 mg Tab RxNorm: 791807 Tablet(s) PO PRN MIGRAINE No Star t Date 06/02/2009 Inactive metformin 500 mg tablet RxNorm: 899986 1 Tablet(s) PO QD No Start D ate 04/05/2013 Inactive Breo Ellipta 100 mcg-25 mcg/dose powder for inhalation RxNor m: 4875307 1 Puff(s) INH BID No Start Date 01/04/2016 Inactive Mag-Oxide 400 mg Tab RxNorm: 755554 1 Tablet(s) PO QD No Start Date 0 07/21/2012 Inactive Cipro 500 mg Tab RxNorm: 343438 1 Tablet(s) PO QD No Start Date 04/05 Inactive Ativan 0.5 mg tablet RxNorm: 545402 1 Tablet(s) PO TID as needed No Start Date 05/06/2019 Inactive melatonin 3 mg tablet RxNorm: 361478 2 Tablet(s) PO QHS No Start Da te 08/19/2018 Inactive buspirone 10 mg Tab RxNorm: 280788 1 Tablet(s) PO QD No Start Date Inactive sucralfate 100 mg/mL Oral Susp RxNorm: 460208 2 Teaspoon(s) PO QID No Start Date 07/21/2012 Inactive hydrocodone 5 mg-acetaminophen 325 mg tablet RxNorm: 515466 1 Tablet(s) PO Q4H as needed No Start Date 08/19/2018 Inactive Amaryl 2 mg tablet RxNorm: 592643 1 Tablet(s) PO BID No Start Date Inactive OxyContin 20 mg 12 hr Tab RxNorm: 3396377 1 Tablet(s) PO BID No Sta rt Date 11/27/2009 Inactive propranolol 40 mg tablet RxNorm: 081884 1 Tablet(s) PO QID No Start Date 01/19/2018 Inactive Trazadone 150 mg Tablet RxNorm: 1-2 Tablet(s) PO QHS prn sleep No Start Date 08/09/2010 Inactive propranolol 60 mg Tab RxNorm: 208598 1/2 Tablet(s) PO BID No Start Date 01/21/2011 Inactive insulin NPH and regular human subcutaneous RxNorm: 3625019 subcu taneous No Start Date 11/20/2018 Inactive Ativan 0.5 mg tablet RxNorm: 135411 1 Tablet(s) PO QID No Start Date 06/18/2016 Inactive Vasotec 5 mg Tab RxNorm: 647216 1 Tablet(s) PO BID No Start Date 06/2011 Inactive Toprol XL 50 mg tablet,extended release RxNorm: 545757 1 Tablet (s) PO BID No Start Date 04/05/2013 Inactive Ativan 0.5 mg tablet RxNorm: 656384 1 Tablet(s) PO TID No Start Date 05/25/2016 Inactive Klor-Con M20 20 mEq Tab RxNorm: 4734272 1 Tablet(s) PO QD No Start Date 03/19/2011 Inactive sumatriptan 100 mg tablet RxNorm: 746991 1 Tablet(s) PO at headache onset--repeat in 2hrs if remains No Start Date 07/21/2012 Inactive propranolol 60 mg Tab RxNorm: 396704 1 Tablet(s) PO BID No Start Da te 08/28/2009 Inactive Cholestyramine Light 4 gram Oral Powder RxNorm: 4004649 1 Unit Dose PO QD in water No Start Date 07/21/2012 Inactive nystatin 100,000 unit/g Topical Powder RxNorm: 697941 Applicati on TOP BID No Start Date 07/21/2012 Inactive vitamin Q86-urgvc acid sublingual RxNorm: sublingual No Start Date 07/05/2013 Inactive cyclobenzaprine 5 mg tablet RxNorm: 305247 1/2-1 Tablet (s) PO TID as needed for muscle spasm No Start Date 07/18/2017 Inactive tramadol 50 mg tablet RxNorm: 094177 2 Tablet(s) PO TID as need ed for pain No Start Date 09/01/2014 Inactive aspirin 81 mg Tab RxNorm: 018568 1 Tablet(s) PO QOD No Start Date 04/2013 Inactive Vitamin B12 1000mcg Tablet RxNorm: 1 Tablet(s) PO QD No Start Date 07/18/2017 Inactive cholestyramine (with sugar) 4 gram oral powder RxNorm: 05446 3 1 Unit(s) PO QD as needed No Start Date 05/20/2018 Inactive ProAir HFA 90 mcg/Actuation Aerosol Inhaler RxNorm: 530773 2 Puff(s) INH Q4H prn shortness of breath No Start Date 07/21/2012 Inactive pravastatin 10 mg Tab RxNorm: 527874 1 Tablet(s) PO QD No Start Date 07/21/2012 Inactive gabapentin 800 mg Tab RxNorm: 632677 1 Tablet(s) PO BID No Start Da te 06/03/2011 Inactive Endocet 10 mg-325 mg Tab RxNorm: 5753540 1 Tablet(s) PO TID No Star t Date 06/02/2009 Inactive Naproxen 500 mg Tab RxNorm: 246365 1 Tablet(s) PO BID No Start Date 0 04/05/2010 Inactive Valium 10 mg Tab RxNorm: 580455 1 Tablet(s) PO BID No Start Date 07/04 Inactive enalapril maleate 5 mg Tab RxNorm: 206113 1 Tablet(s) PO QD No Star t Date 11/15/2010 Inactive doxepin 10 mg capsule RxNorm: 2590858 2 Capsule(s) PO QHS No Start Date 09/17/2018 Inactive MS Contin 15 mg Tab RxNorm: 923951 1 Tablet(s) PO BID No Start Date 0 09/18/2010 Inactive buspirone 5 mg tablet RxNorm: 038981 1 Tablet(s) PO TID No Start Da te 12/01/2013 Inactive [place] 3 Fish Oil Cap RxNorm: 1 Capsule(s) PO QD No Start Date 07/03 Inactive enalapril maleate 5 mg Tab RxNorm: 371613 1/2 Tablet(s) PO QD No St art Date 03/07/2011 Inactive Lyrica 75 mg capsule RxNorm: 307463 1 Capsule(s) PO QHS No Start Da te 02/08/2014 Inactive Lopressor 100 mg tablet RxNorm: 384338 1 Tablet(s) PO BID No Start Date 06/08/2018 Inactive Lantus Solostar U-100 Insulin 100 unit/mL (3 mL) subcu taneous pen RxNorm: 184368 45 Unit(s) SQ QAM No Start Date 05/20/2018 Inactive aspirin 81 mg tablet RxNorm: 742372 1 Tablet(s) PO QD No Start Date 0 09/14/2015 Inactive diltiazem CD 240 mg capsule,extended release 24 hr RxNorm: 8 21352 1 Capsule(s) PO QD No Start Date 05/25/2019 Inactive insulin NPH isophane U-100 human subcutaneous RxNorm: 750446 beckwith bcutaneous No Start Date 04/20/2019 Inactive sumatriptan 100 mg tablet RxNorm: 428753 1 Tablet(s) PO at headache onset. May repeat 1 in two hours if headache remains. Max of 2 per 24 hours No Start Date 04/01/2018 Inactive gabapentin 300 mg capsule RxNorm: 911413 1 Capsule(s) PO QHS No Sta rt Date 02/04/2018 Inactive Topamax 25 mg Tab RxNorm: 685066 Oral No Start Date 03/07/2011 In active Senokot-S 8.6 mg-50 mg Tab RxNorm: 0851364 1 Tablet(s) PO QD No Sta rt Date 03/07/2011 Inactive metformin ER 500 mg 24 hr tablet,extended release RxNorm: 18 51796 1 Tablet(s) PO QD No Start Date 05/20/2018 Inactive Symbicort 80 mcg-4.5 mcg/actuation HFA Aerosol Inhaler RxNor m: 4329333 2 Puff(s) INH BID No Start Date 04/05/2013 Inactive metoprolol tartrate 25 mg tablet RxNorm: 453813 1 Tablet(s) PO BID No Start Date 05/20/2019 Inactive propranolol 60 mg Tab RxNorm: 570431 1/2 Tablet(s) PO BID No Start Date 07/21/2012 Inactive metformin ER 500 mg 24 hr tablet,extended release RxNorm: 18 53333 2 Tablet(s) PO QD No Start Date 12/16/2017 Inactive Insulin Syringe 1 mL 29 gauge x 1/2" RxNorm: 2 s yringes daily with insulin Dx: E11.65 No Start Date 10/07/2018 Inactive Amitriptyline 75 mg Tab RxNorm: 268119 1 Tablet(s) PO QHS No Start Date 10/23/2009 Inactive donepezil 10 mg Tab RxNorm: 022594 1 Tablet(s) PO QD No Start Date Inactive Lantus Solostar U-100 Insulin 100 unit/mL (3 mL) subcu taneous pen RxNorm: 908888 36 Unit(s) SQ QAM No Start Date 12/24/2017 Inactive Miacalcin 200 unit/Actuation Nasal [place] Aerosol RxNorm: 261 204 1 [place] NASAL QD Alternate nostrils each day No Start Date 04/05/2010 Inactive Amitriptyline 150 mg Tab RxNorm: 121590 1 Tablet(s) PO QHS No Start Date 01/04/2010 Inactive Bystolic 5 mg tablet RxNorm: 878594 1 Tablet(s) PO QD No Start Date 0 08/13/2012 Inactive Aricept 10 mg Tab RxNorm: 717441 1 Tablet(s) PO QD No Start Date 11/03 Inactive Lantus Solostar U-100 Insulin 100 unit/mL (3 mL) subcu taneous pen RxNorm: 727744 50 Unit(s) SQ QAM No Start Date 08/27/2018 Inactive albuterol sulfate 2.5 mg/3 mL (0.083 %) Neb Solution RxNorm: 438525 1 Unit Dose INH QID as needed No Start Date 08/23/2015 Inactive Symbicort 160 mcg-4.5 mcg/actuation HFA Aerosol Inhaler RxNo rm: 8355277 2 Puff(s) INH BID No Start Date 12/03/2011 Inactive Savella 50 mg Tab RxNorm: 171215 1 Tablet(s) PO BID No Start Date 04/2010 Inactive amitriptyline 100 mg Tab RxNorm: 652366 1 1/2 Tablet(s) PO QHS No S tart Date 06/19/2011 Inactive nystatin 100,000 unit/g Topical Cream RxNorm: 164267 Ap plication TOP BID to rash for 2-4 weeks No Start Date 01/14/2011 Inactive Trelegy Ellipta 100 mcg-62.5 mcg-25 mcg powder for inhalatio n RxNorm: 2737817 1 Puff(s) INH QD No Start Date 12/16/2017 Inactive Lyrica 150 mg capsule RxNorm: 076507 1 Capsule(s) PO QHS No Start D ate 12/04/2015 Inactive sennosides 8.6 mg tablet RxNorm: 295604 1 Tablet(s) PO BID No Start Date 09/07/2018 Inactive metformin ER 500 mg tablet,extended release 24 hr RxNorm: 86 0975 1 Tablet(s) PO QD No Start Date 10/22/2017 Inactive Fish Oil 1,000 mg Cap RxNorm: 1 Capsule(s) PO QD No Start Date 06/2011 Inactive Zyrtec 10 mg Tab RxNorm: 1072664 1 Tablet(s) PO QD No Start Date 07/03 Inactive albuterol sulfate HFA 90 mcg/actuation aerosol inhaler RxNor m: 8615367 2 Puff(s) INH Q4H as needed for cough No Start Date 09/30/2013 Inactive trazodone 150 mg tablet RxNorm: 528863 1 Tablet(s) PO QHS No Start Date 07/21/2012 Inactive Spiriva with HandiHaler 18 mcg & inhalation capsules RxNorm: 598553 1 Capsule(s) INH QD No Start Date 04/05/2013 Inactive Coreg 3.125 mg Tab RxNorm: 561173 1 Tablet(s) PO BID No Start Date Inactive Phenergan 25 mg Tab RxNorm: 023735 Tablet(s) PO PRN MIGRAINE No Sta rt Date 11/21/2009 Inactive Vitamin D 50,000 unit Cap RxNorm: 5273764 1 Capsule(s) PO QW No Sta rt Date 03/07/2011 Inactive Januvia 100 mg tablet RxNorm: 282239 1 Tablet(s) PO QD No Start Date 10/25/2015 Inactive Eliquis 5 mg tablet RxNorm: 8257226 1 Tablet(s) PO BID No Start Date 08/19/2018 Inactive Advair Diskus 500 mcg-50 mcg/Dose for Inhalation RxNorm: 493862 1 INH BID No Start Date 07/21/2012 Inactive Vitamin D3 5,000 unit tablet RxNorm: 660552 1 Tablet(s) PO QD No St art Date 07/18/2017 Inactive Amaryl 2 mg tablet RxNorm: 642520 1 Tablet(s) PO QD No Start Date 06/2015 Inactive Actos 30 mg tablet RxNorm: 874222 1 Tablet(s) PO QD No Start Date Inactive promethazine 25 mg tablet RxNorm: 621831 1 Tablet(s) PO Q4H prn N/V No Start Date 07/21/2012 Inactive ProAir HFA 90 mcg/actuation Aerosol Inhaler RxNorm: 410189 2 Puff(s) INH Q4H prn dyspnea No Start Date 07/21/2012 Inactive Dexilant 60 mg Capsule RxNorm: 225406 1 Capsule(s) PO QD No Start D ate 01/27/2012 Inactive Lantus Solostar U-100 Insulin 100 unit/mL (3 mL) subcu taneous pen RxNorm: 090620 38 Unit(s) SQ QAM No Start Date 05/20/2018 Inactive Valium 10 mg Tab RxNorm: 139829 1 Tablet(s) PO QHS AND PRN No Start Date 10/24/2009 Inactive ZOFRAN ODT 8 mg disintegrating tablet RxNorm: 999129 1 Tablet(s ) PO Q6H No Start [...] Date S ervice Location MICROALBUMIN URINE RANDOM 22496 MICRL MG/L 14.9 MG/L Unknown MICROALBUMIN URINE RANDOM 13503 XM.ALB/CRE 6.1 MG/GCR Unknown MICROALBUMIN URINE RANDOM 97259 CREAT MG/D 243 MG/DL Unknown MICROALBUMIN URINE RANDOM 22656 CRE/100 2.43 G/L 03/05 Unknown PROTEIN/CREAT URINE WITH RATIO 59432|02027 PROT R U 14 MG/D L 04/01/2014 Unknown PROTEIN/CREAT URINE WITH RATIO 40510|94545 CREAT R U 254 MG/ DL 04/01/2014 Unknown PROTEIN/CREAT URINE WITH RATIO 30079|41137 XRATIO P/C 55 MG/ G 04/01/2014 Unknown URINALYSIS 83716 PROTEIN UR NEG 04/28/2010 Unknown URINALYSIS 02934 HEMGLBN UR NEG 04/28/2010 Unknown URINALYSIS 78181 GLUCOSE UR NEG 04/28/2010 Unknown URINALYSIS 94621 KETONES UR NEG 04/28/2010 Unknown URINALYSIS 78675 PH U 5.5 04/28/2010 Unknown URINALYSIS 13900 SP GR U 1.025 04/28/2010 Unknown URINALYSIS 37895 BILRUBN UR NEG 04/28/2010 Unknown URINALYSIS 68055 LEUKO UR 2+ 04/28/2010 Unknown URINALYSIS 02944 NITRITE UR NEG 04/28/2010 Unknown MICR CUL? [id number] WBC/HPF 6-10 04/28/2010 Unknown MICR CUL? [id number] RBC/HPF 0-5 04/28/2010 Unknown MICR CUL? [id number] HYAL CAST 16-25 04/28/2010 Unknown MICR CUL? [id number] SP TO YOLIE? NO 04/28/2010 Unknown MICR CUL? [id number] APPEAR UR NORMAL 04/28/2010 Unknown MICR CUL? [id number] SQ EPI/LPF FEW 04/28/2010 Unknown Procedures Procedure Codes Date URINALYSIS NONAUTO W/O SCOPE CPT-4: 89205 04/16/2019 URINE CULTURE/ COLONY COUNT CPT-4: 57414 04/16/2019 CEFTRIAXONE SODIUM INJECTION CPT-4: J0696 04/16/2019 THER/PROPH/DIAG INJ SC/IM CPT-4: 91597 04/16/2019 DRAIN/INJECT JOINT/BURSA CPT-4: 20960 01/22/2019 TRIAMCINOLONE ACET INJ NOS CPT-4: J3301 01/22/2019 DEXAMETHASONE SODIUM PHOS CPT-4: J1100 01/22/2019 URINE CULTURE/ COLONY COUNT CPT-4: 70742 01/07/2019 URINALYSIS NONAUTO W/O SCOPE CPT-4: 77713 01/07/2019 CEFTRIAXONE SODIUM INJECTION CPT-4: J0696 01/07/2019 THER/PROPH/DIAG INJ SC/IM CPT-4: 94689 01/07/2019 FLU VACC PRSV FREE INC ANTIG 65 AND OLDER CPT-4: 11281 12/24/2018 FLU VACC PRSV FREE INC ANTIG 65 AND OLDER CPT-4: 06852 12/24/2018 ADMIN INFLUENZA VIRUS VAC CPT-4: G0008 12/24/2018 THER/PROPH/DIAG INJ SC/IM CPT-4: 65797 11/04/2018 KETOROLAC TROMETHAMINE INJ CPT-4: J1885 11/04/2018 PROMETHAZINE HCL INJECTION CPT-4: J2550 11/04/2018 PPPS, subseq visit CPT-4: G0439 09/18/2018 THER/PROPH/DIAG INJ SC/IM CPT-4: 55092 04/01/2018 KETOROLAC TROMETHAMINE INJ CPT-4: J1885 04/01/2018 PROMETHAZINE HCL INJECTION CPT-4: J2550 04/01/2018 URINE CULTURE/ COLONY COUNT CPT-4: 88188 03/17/2018 URINALYSIS NONAUTO W/O SCOPE CPT-4: 62892 03/17/2018 FLU VACC PRSV FREE INC ANTIG 65 AND OLDER CPT-4: 38569 12/17/2017 PNEUMOCOCCAL VACC 23 RANDALL IM CPT-4: 58455 12/17/2017 ADMIN INFLUENZA VIRUS VAC CPT-4: G0008 12/17/2017 ADMIN PNEUMOCOCCAL VACCINE CPT-4: G0009 12/17/2017 PPPS, subseq visit CPT-4: G0439 09/17/2017 THER/PROPH/DIAG INJ SC/IM CPT-4: 10880 08/26/2017 KETOROLAC TROMETHAMINE INJ CPT-4: J1885 08/26/2017 PROMETHAZINE HCL INJECTION CPT-4: J2550 08/26/2017 URINALYSIS NONAUTO W/O SCOPE CPT-4: 57420 07/19/2017 URINE CULTURE/ COLONY COUNT CPT-4: 31140 07/19/2017 CEFTRIAXONE SODIUM INJECTION CPT-4: J0696 07/19/2017 THER/PROPH/DIAG INJ SC/IM CPT-4: 84748 07/19/2017 THER/PROPH/DIAG INJ SC/IM CPT-4: 47712 07/19/2017 TRIAMCINOLONE ACET INJ NOS CPT-4: J3301 07/19/2017 PRESCRIP TRANSMIT VIA ERX SY CPT-4: G8553 05/07/2017 PRESCRIP TRANSMIT VIA ERX SY CPT-4: G8553 02/22/2017 PRESCRIP TRANSMIT VIA ERX SY CPT-4: G8553 01/23/2017 FLU VACC PRSV FREE INC ANTIG 65 AND OLDER CPT-4: 61514 12/20/2016 PNEUMOCOCCAL VACC 13 RANDALL IM CPT-4: 34282 12/20/2016 ADMIN INFLUENZA VIRUS VAC CPT-4: G0008 12/20/2016 ADMIN PNEUMOCOCCAL VACCINE CPT-4: G0009 12/20/2016 URINALYSIS NONAUTO W/O SCOPE CPT-4: 39289 10/08/2016 URINE CULTURE/ COLONY COUNT CPT-4: 72147 10/08/2016 PRESCRIP TRANSMIT VIA ERX SY CPT-4: G8553 10/08/2016 PRESCRIP TRANSMIT VIA ERX SY CPT-4: G8553 09/19/2016 PRESCRIP TRANSMIT VIA ERX SY CPT-4: G8553 08/20/2016 PRESCRIP TRANSMIT VIA ERX SY CPT-4: G8553 02/29/2016 KETOROLAC TROMETHAMINE INJ CPT-4: J1885 02/02/2016 THER/PROPH/DIAG INJ SC/IM CPT-4: 79745 02/02/2016 PROMETHAZINE HCL INJECTION CPT-4: J2550 02/02/2016 PRESCRIP TRANSMIT VIA ERX SY CPT-4: G8553 02/02/2016 FLU VACC PRSV FREE INC ANTIG 65 AND OLDER CPT-4: 60425 01/05/2016 PPPS, subseq visit CPT-4: G0439 01/05/2016 ADMIN INFLUENZA VIRUS VAC CPT-4: G0008 01/05/2016 URINE CULTURE/ COLONY COUNT CPT-4: 30569 12/05/2015 URINALYSIS NONAUTO W/O SCOPE CPT-4: 88180 12/05/2015 PRESCRIP TRANSMIT VIA ERX SY CPT-4: G8553 12/05/2015 PRESCRIP TRANSMIT VIA ERX SY CPT-4: G8553 10/26/2015 URINALYSIS NONAUTO W/O SCOPE CPT-4: 27928 10/05/2015 URINE CULTURE/ COLONY COUNT CPT-4: 59260 10/05/2015 PRESCRIP TRANSMIT VIA ERX SY CPT-4: G8553 10/05/2015 MD SERVICE REQUIRED FOR PMD CPT-4: G0372 09/15/2015 PRESCRIP TRANSMIT VIA ERX SY CPT-4: G8553 09/15/2015 SPECIAL REPORTS OR FORMS CPT-4: 58447 08/25/2015 PRESCRIP TRANSMIT VIA ERX SY CPT-4: G8553 07/05/2015 URINALYSIS NONAUTO W/O SCOPE CPT-4: 32400 03/30/2015 ASSAY, GLUCOSE, BLOOD QUANT CPT-4: 46949 03/30/2015 URINE CULTURE/ COLONY COUNT CPT-4: 06407 03/30/2015 PRESCRIP TRANSMIT VIA ERX SY CPT-4: G8553 03/30/2015 PRESCRIP TRANSMIT VIA ERX SY CPT-4: G8553 02/03/2015 FLU VACC PRSV FREE INC ANTIG 65 AND OLDER CPT-4: 26669 12/29/2014 ADMIN INFLUENZA VIRUS VAC CPT-4: G0008 12/29/2014 PRESCRIP TRANSMIT VIA ERX SY CPT-4: G8553 12/29/2014 PRESCRIP TRANSMIT VIA ERX SY CPT-4: G8553 09/02/2014 PROTEIN/CREAT URINE WITH RATIO CPT-4: 47098|89502 5 MICROALBUMIN QUANTITATIVE CPT-4: 80334 04/01/2014 PRESCRIP TRANSMIT VIA ERX SY CPT-4: G8553 03/16/2014 PRESCRIP TRANSMIT VIA ERX SY CPT-4: G8553 03/09/2014 THER/PROPH/DIAG INJ SC/IM CPT-4: 55633 03/01/2014 TRIAMCINOLONE ACET INJ NOS CPT-4: J3301 03/01/2014 PRESCRIP TRANSMIT VIA ERX SY CPT-4: G8553 02/09/2014 URINE CULTURE/ COLONY COUNT CPT-4: 08587 10/30/2013 URINALYSIS NONAUTO W/O SCOPE CPT-4: 88296 10/21/2013 URINE CULTURE/ COLONY COUNT CPT-4: 14231 10/21/2013 DESTRUCT PREMALG LESION (Cryosurgery) CPT-4: 99921 PRESCRIP TRANSMIT VIA ERX SY CPT-4: G8553 10/05/2013 URINALYSIS NONAUTO W/O SCOPE CPT-4: 64130 08/04/2013 URINE CULTURE/ COLONY COUNT CPT-4: 12983 08/04/2013 PRESCRIP TRANSMIT VIA ERX SY CPT-4: G8553 08/04/2013 THER/PROPH/DIAG INJ SC/IM CPT-4: 70533 07/13/2013 TRIAMCINOLONE ACET INJ NOS CPT-4: J3301 07/13/2013 PRESCRIP TRANSMIT VIA ERX SY CPT-4: G8553 05/27/2013 URINALYSIS NONAUTO W/O SCOPE CPT-4: 28775 05/25/2013 URINE CULTURE/ COLONY COUNT CPT-4: 18775 05/25/2013 THER/PROPH/DIAG INJ SC/IM CPT-4: 62754 05/04/2013 VITAMIN B12 INJECTION CPT-4: J3420 05/04/2013 THER/PROPH/DIAG INJ SC/IM CPT-4: 82816 04/17/2013 VITAMIN B12 INJECTION CPT-4: J3420 04/17/2013 THER/PROPH/DIAG INJ SC/IM CPT-4: 35194 04/17/2013 METHYLPREDNISOLONE 40 MG INJ CPT-4: J1030 04/17/2013 TRIAMCINOLONE ACET INJ NOS CPT-4: J3301 04/17/2013 URINALYSIS NONAUTO W/O SCOPE CPT-4: 44692 04/06/2013 URINE CULTURE/ COLONY COUNT CPT-4: 54867 04/06/2013 PRESCRIP TRANSMIT VIA ERX SY CPT-4: G8553 04/06/2013 KETOROLAC TROMETHAMINE INJ CPT-4: J1885 06/25/2012 PROMETHAZINE HCL INJECTION CPT-4: J2550 06/25/2012 THER/PROPH/DIAG INJ SC/IM CPT-4: 67356 06/25/2012 THER/PROPH/DIAG INJ SC/IM CPT-4: 87339 06/24/2012 METHYLPREDNISOLONE 40 MG INJ CPT-4: J1030 06/24/2012 TRIAMCINOLONE ACET INJ NOS CPT-4: J3301 06/24/2012 URINE CULTURE/ COLONY COUNT CPT-4: 84996 06/24/2012 THER/PROPH/DIAG INJ SC/IM CPT-4: 48807 05/20/2012 KETOROLAC TROMETHAMINE INJ CPT-4: J1885 05/20/2012 THER/PROPH/DIAG INJ SC/IM CPT-4: 95764 05/20/2012 PROMETHAZINE HCL INJECTION CPT-4: J2550 05/20/2012 DRAIN/INJECT JOINT/BURSA CPT-4: 59878 02/13/2012 METHYLPREDNISOLONE 40 MG INJ CPT-4: J1030 02/13/2012 TRIAMCINOLONE ACET INJ NOS CPT-4: J3301 02/13/2012 THER/PROPH/DIAG INJ SC/IM CPT-4: 66643 11/14/2011 METHYLPREDNISOLONE 40 MG INJ CPT-4: J1030 11/14/2011 TRIAMCINOLONE ACET INJ NOS CPT-4: J3301 11/14/2011 THER/PROPH/DIAG INJ SC/IM CPT-4: 62602 09/12/2011 KETOROLAC TROMETHAMINE INJ CPT-4: J1885 09/12/2011 THER/PROPH/DIAG INJ SC/IM CPT-4: 73320 08/09/2011 METHYLPREDNISOLONE 40 MG INJ CPT-4: J1030 08/09/2011 TRIAMCINOLONE ACET INJ NOS CPT-4: J3301 08/09/2011 URINE CULTURE/ COLONY COUNT CPT-4: 96553 07/03/2011 URINE CULTURE/ COLONY COUNT CPT-4: 61830 06/04/2011 THER/PROPH/DIAG INJ SC/IM CPT-4: 90353 05/03/2011 METHYLPREDNISOLONE 40 MG INJ CPT-4: J1030 05/03/2011 TRIAMCINOLONE ACET INJ NOS CPT-4: J3301 05/03/2011 URINALYSIS NONAUTO W/O SCOPE CPT-4: 52101 01/24/2011 URINE CULTURE/ COLONY COUNT CPT-4: 86484 01/24/2011 FLUZONE, 5ML (Medicare) CPT-4: Q2038 01/02/2011 ADMIN INFLUENZA VIRUS VAC CPT-4: G0008 01/02/2011 ASSAY, GLUCOSE, BLOOD QUANT CPT-4: 98699 12/07/2010 URINE CULTURE/ COLONY COUNT CPT-4: 53288 11/02/2010 THER/PROPH/DIAG INJ SC/IM CPT-4: 05151 10/18/2010 METHYLPREDNISOLONE 40 MG INJ CPT-4: J1030 10/18/2010 TRIAMCINOLONE ACET INJ NOS CPT-4: J3301 10/18/2010 TRIAMCINOLONE ACET INJ NOS CPT-4: J3301 05/11/2010 METHYLPREDNISOLONE 40 MG INJ CPT-4: J1030 05/11/2010 THER/PROPH/DIAG INJ SC/IM CPT-4: 71625 05/11/2010 TRIAMCINOLONE ACET INJ NOS CPT-4: J3301 02/09/2010 METHYLPREDNISOLONE 40 MG INJ CPT-4: J1030 02/09/2010 THER/PROPH/DIAG INJ SC/IM CPT-4: 60564 02/09/2010 SERVICE REQUIRED FOR PMD CPT-4: G0372 02/09/2010 FLU VACCINE 3 YRS & > IM UP 64 CPT-4: 95488 0 PNEUMOCOCCAL VACC 23 RANDALL IM CPT-4: 67996 12/07/2009 ADMIN INFLUENZA VIRUS VAC CPT-4: G0008 12/07/2009 ADMIN PNEUMOCOCCAL VACCINE CPT-4: G0009 12/07/2009 TRIAMCINOLONE ACET INJ NOS CPT-4: J3301 05/26/2009 THER/PROPH/DIAG INJ SC/IM CPT-4: 82081 05/26/2009 METHYLPREDNISOLONE 80 MG INJ CPT-4: J1040 [...] 1: 114/72 Code: 8480-6 BMI: 37.8 Code: 24100-4 Heart Rate 1: 72 bpm Height: 5'3" [...] 1: 106/68 Code: 8480-6 BMI: 35.7 Code: 82879-1 Heart Rate 1: 72 bpm Height: 5'4" Respiratory Rate: 20 bpm SpO2: 98% Tempera ture: 36.7 (C) / 98.0 (F) Weight: 208 lbs 04/16/2018 Blood Pressure 1: 132/82 Code: 8480-6 BMI: 37.9 Code: 96735-4 Heart Rate 1: 72 bpm Height: 5'4" Respiratory Rate: 20 bpm SpO2: 96% Tempera ture: 37.1 (C) / 98.8 (F) Weight: 221 lbs 04/01/2018 Blood Pressure 1: 150/90 Code: 8480-6 Heart Rate 1: 72 bpm Respiratory Rate: 22 bpm SpO2: 95% Temperature: 36.4 (C) / 97.6 (F) We ight: 216 lbs 03/06/2018 Blood Pressure 1: 126/78 Code: 8480-6 BMI: 37.4 Code: 96625-7 Heart Rate 1: 68 bpm Height: 5'4" [...] ight: 222 lbs 12/25/2017 BMI: 37.8 Code: 71628-6 Heart Rate 1: 76 bpm Height: 5 '4" Respiratory Rate: 20 bpm SpO2: 96% Temperature: 37.3 (C) / 99.2 (F) Weight: 220 lbs 12/17/2017 Blood Pressure 1: 132/78 Code: 8480-6 BMI: 37.2 Code: 29843-2 Heart Rate 1: 88 bpm Height: 5'4" Respiratory Rate: 20 bpm SpO2: 96% Tempera ture: 37.3 (C) / 99.2 (F) Weight: 217 lbs 10/30/2017 Blood Pressure 1: 114/68 Code: 8480-6 BMI: 36.4 Code: 32931-6 Heart Rate 1: 72 bpm Height: 5'4" Respiratory Rate: 22 bpm SpO2: 96% Tempera ture: 36.8 (C) / 98.2 (F) Weight: 212 lbs 10/23/2017 Blood Pressure 1: 124/78 Code: 8480-6 Heart Rate 1: 72 bpm Respiratory Rate: 24 bpm SpO2: 94% Temperature: 36.6 (C) / 97.9 (F) We ight: 212 lbs 09/17/2017 Blood Pressure 1: 128/82 Code: 8480-6 BMI: 37.4 Code: 74775-0 Heart Rate 1: 72 bpm Height: 5'4" Respiratory Rate: 20 bpm SpO2: 96% Tempera ture: 37.0 (C) / 98.6 (F) Weight: 218 lbs 07/19/2017 Blood Pressure 1: 136/84 Code: 8480-6 BMI: 36.6 Code: 94502-1 Heart Rate 1: 88 bpm Height: 5'4" Respiratory Rate: 20 bpm SpO2: 97% Tempera ture: 36.7 (C) / 98.0 (F) Weight: 213 lbs 05/29/2017 Blood Pressure 1: 136/82 Code: 8480-6 BMI: 36.7 Code: 31364-2 Heart Rate 1: 72 bpm Height: 5'4" Respiratory Rate: 20 bpm SpO2: 97% Tempera ture: 36.9 (C) / 98.4 (F) Weight: 214 lbs 05/07/2017 Blood Pressure 1: 122/80 Code: 8480-6 BMI: 37.1 Code: 39286-6 Heart Rate 1: 80 bpm Height: 5'4" Respiratory Rate: 24 bpm SpO2: 96% Tempera ture: 36.1 (C) / 97.0 (F) Weight: 216 lbs 03/18/2017 BMI: 36.7 Code: 92472-2 Heart Rate 1: 80 bpm Height: 5 '4" Respiratory Rate: 22 bpm SpO2: 95% Temperature: 36.9 (C) / 98.4 (F) Weight: 214 lbs 02/27/2017 Blood Pressure 1: 146/94 Code: 8480-6 BMI: 36.6 Code: 90366-7 Heart Rate 1: 76 bpm Height: 5'4" Respiratory Rate: 22 bpm SpO2: 97% Tempera ture: 36.6 (C) / 97.9 (F) Weight: 213 lbs 02/22/2017 Blood Pressure 1: 126/90 Code: 8480-6 BMI: 36.4 Code: 16888-9 Heart Rate 1: 84 bpm Height: 5'4" Respiratory Rate: 22 bpm SpO2: 95% Tempera ture: 36.9 (C) / 98.4 (F) Weight: 212 lbs 01/23/2017 Blood Pressure 1: 146/82 Code: 8480-6 BMI: 37.6 Code: 01208-1 Heart Rate 1: 96 bpm Height: 5'4" Respiratory Rate: 20 bpm SpO2: 96% Tempera ture: 36.9 (C) / 98.4 (F) Weight: 219 lbs 12/20/2016 Blood Pressure 1: 126/70 Code: 8480-6 BMI: 37.2 Code: 18975-9 Heart Rate 1: 76 bpm Height: 5'4" Respiratory Rate: 22 bpm SpO2: 95% Tempera ture: 36.6 (C) / 97.8 (F) Weight: 217 lbs 10/08/2016 Blood Pressure 1: 128/82 Code: 8480-6 BMI: 36.9 Code: 84503-0 Heart Rate 1: 76 bpm Height: 5'4" Respiratory Rate: 20 bpm SpO2: 95% Tempera ture: 37.0 (C) / 98.6 (F) Weight: 215 lbs 09/19/2016 Blood Pressure 1: 144/78 Code: 8480-6 BMI: 37.8 Code: 41552-3 Heart Rate 1: 76 bpm Height: 5'4" Respiratory Rate: 22 bpm SpO2: 95% Tempera ture: 37.0 (C) / 98.6 (F) Weight: 220 lbs 08/20/2016 Blood Pressure 1: 140/86 Code: 8480-6 BMI: 37.4 Code: 86221-8 Heart Rate 1: 80 bpm Height: 5'4" Respiratory Rate: 20 bpm SpO2: 95% Tempera ture: 36.9 (C) / 98.4 (F) Weight: 218 lbs 06/19/2016 Blood Pressure 1: 124/78 Code: 8480-6 BMI: 37.8 Code: 53841-5 Heart Rate 1: 74 bpm Height: 5'4" Respiratory Rate: 24 bpm SpO2: 96% Tempera ture: 36.9 (C) / 98.4 (F) Weight: 220 lbs 06/04/2016 Blood Pressure 1: 12478 Code: 8480-6 BMI: 38.8 Code: 52212-7 Heart Rate 1: 72 bpm Height: 5'4" Respiratory Rate: 24 bpm SpO2: 95% Tempera ture: 36.8 (C) / 98.2 (F) Weight: 226 lbs 05/02/2016 Blood Pressure 1: 136/90 Code: 8480-6 BMI: 37.6 Code: 43487-8 Heart Rate 1: 72 bpm Height: 5'4" Respiratory Rate: 24 bpm SpO2: 96% Tempera ture: 36.9 (C) / 98.4 (F) Weight: 219 lbs 04/03/2016 Blood Pressure 1: 126/78 Code: 8480-6 BMI: 38.1 Code: 86961-4 Heart Rate 1: 72 bpm Height: 5'4" Respiratory Rate: 22 bpm SpO2: 94% Tempera ture: 36.9 (C) / 98.4 (F) Weight: 222 lbs 02/29/2016 Blood Pressure 1: 132/78 Code: 8480-6 Heart Rate 1: 78 bpm Height: Respiratory Rate: 24 bpm SpO2: 95% Temperature: 36.4 (C) / 97.6 (F) We ight: 02/02/2016 Blood Pressure 1: 124/78 Code: 8480-6 BMI: 37.6 Code: 05513-3 Heart Rate 1: 76 bpm Height: 5'4" Respiratory Rate: 20 bpm SpO2: 95% Tempera ture: 36.8 (C) / 98.2 (F) Weight: 219 lbs 01/05/2016 Blood Pressure 1: 126/70 Code: 8480-6 BMI: 37.1 Code: 25621-3 Heart Rate 1: 76 bpm Height: 5'4" Respiratory Rate: 20 bpm Temperature: 36 .6 (C) / 97.8 (F) Weight: 216 lbs 12/05/2015 Blood Pressure 1: 126/72 Code: 8480-6 BMI: 36.9 Code: 93934-7 Heart Rate 1: 92 bpm Height: 5'4" Respiratory Rate: 20 bpm Temperature: 36 .7 (C) / 98.1 (F) Weight: 215 lbs 10/26/2015 Blood Pressure 1: 142/80 Code: 8480-6 BMI: 36.4 Code: 71341-2 Heart Rate 1: 82 bpm Height: 5'4" Respiratory Rate: 24 bpm SpO2: 92% Tempera ture: 35.9 (C) / 96.7 (F) Weight: 212 lbs 10/05/2015 Blood Pressure 1: 136/82 Code: 8480-6 Heart Rate 1: 80 bpm Respiratory Rate: 18 bpm SpO2: 98% Temperature: 35.7 (C) / 96.3 (F) We ight: 214 lbs 09/15/2015 Blood Pressure 1: 116/80 Code: 8480-6 BMI: 34.6 Code: 26015-4 Heart Rate 1: 76 bpm Height: 5'6" Respiratory Rate: 20 bpm Temperature: 36 .6 (C) / 97.9 (F) Weight: 211 lbs 08/24/2015 Blood Pressure 1: 124/80 Code: 8480-6 BMI: 34.1 Code: 35905-6 Heart Rate 1: 68 bpm Height: 5'6" Respiratory Rate: 20 bpm Temperature: 36 .8 (C) / 98.3 (F) Weight: 208 lbs 07/05/2015 Blood Pressure 1: 114/78 Code: 8480-6 BMI: 33.9 Code: 54271-0 Heart Rate 1: 80 bpm Height: 5'6" Respiratory Rate: 20 bpm Temperature: 36 .6 (C) / 97.9 (F) Weight: 207 lbs 06/06/2015 Blood Pressure 1: 122/78 Code: 8480-6 BMI: 34.1 Code: 06601-9 Heart Rate 1: 76 bpm Height: 5'6" Respiratory Rate: 24 bpm SpO2: 96% Tempera ture: 36.4 (C) / 97.6 (F) Weight: 208 lbs 05/23/2015 Blood Pressure 1: 124/78 Code: 8480-6 Heart Rate 1: 76 bpm Respiratory Rate: 24 bpm SpO2: 93% Temperature: 36.8 (C) / 98.2 (F) We ight: 212 lbs 05/05/2015 Blood Pressure 1: 136/80 Code: 8480-6 BMI: 35.4 Code: 93016-1 Heart Rate 1: 76 bpm Height: 5'6" Respiratory Rate: 28 bpm Temperature: 37 .0 (C) / 98.6 (F) Weight: 216 lbs 03/30/2015 Blood Pressure 1: 132/86 Code: 8480-6 BMI: 35.2 Code: 67728-5 Heart Rate 1: 84 bpm Height: 5'6" Respiratory Rate: 24 bpm Temperature: 36 .7 (C) / 98.0 (F) Weight: 215 lbs 02/03/2015 Blood Pressure 1: 122/74 Code: 8480-6 BMI: 35.7 Code: 58378-7 Heart Rate 1: 84 bpm Height: 5'6" Respiratory Rate: 20 bpm Temperature: 36 .9 (C) / 98.5 (F) Weight: 218 lbs 12/29/2014 Blood Pressure 1: 132/80 Code: 8480-6 BMI: 35.1 Code: 20571-4 Heart Rate 1: 80 bpm Height: 5'6" Respiratory Rate: 20 bpm Temperature: 36 .6 (C) / 97.8 (F) Weight: 214 lbs 09/02/2014 Blood Pressure 1: 128/92 Code: 8480-6 BMI: 34.7 Code: 00338-6 Heart Rate 1: 84 bpm Height: 5'6" Respiratory Rate: 26 bpm Temperature: 36 .8 (C) / 98.2 (F) Weight: 212 lbs 08/25/2014 Blood Pressure 1: 124/80 Code: 8480-6 BMI: 34.7 Code: 69724-3 Heart Rate 1: 78 bpm Height: 5'6" Respiratory Rate: 22 bpm SpO2: 97% Tempera ture: 36.6 (C) / 97.8 (F) Weight: 212 lbs 04/01/2014 Blood Pressure 1: 142/84 Code: 8480-6 BMI: 34.4 Code: 64012-0 Heart Rate 1: 74 bpm Height: 5'5" Respiratory Rate: 20 bpm Temperature: 36 .4 (C) / 97.6 (F) Weight: 207 lbs 03/16/2014 Blood Pressure 1: 142/90 Code: 8480-6 BMI: 34.6 Code: 25071-9 Heart Rate 1: 76 bpm Height: 5'5" Respiratory Rate: 24 bpm Temperature: 36 .5 (C) / 97.7 (F) Weight: 208 lbs 03/09/2014 Blood Pressure 1: 116/70 Code: 8480-6 BMI: 35.3 Code: 48344-2 Heart Rate 1: 72 bpm Height: 5'5" [...] 1: 128/86 Code: 8480-6 BMI: 34.3 Code: 56274-0 Heart Rate 1: 84 bpm Height: 5'5" Respiratory Rate: 20 bpm Temperature: 36 .7 (C) / 98.0 (F) Weight: 206 lbs 12/23/2013 Blood Pressure 1: 122/70 Code: 8480-6 BMI: 34.3 Code: 46170-5 Heart Rate 1: 68 bpm Height: 5'5" Respiratory Rate: 20 bpm Temperature: 36 .8 (C) / 98.2 (F) Weight: 206 lbs 10/05/2013 Blood Pressure 1: 118/76 Code: 8480-6 BMI: 34.1 Code: 22623-1 Heart Rate 1: 68 bpm Height: 5'5" Respiratory Rate: 20 bpm SpO2: 98% Tempera ture: 36.6 (C) / 97.9 (F) Weight: 205 lbs 08/04/2013 Blood Pressure 1: 126/82 Code: 8480-6 BMI: 33.3 Code: 49998-2 Heart Rate 1: 76 bpm Height: 5'5" Respiratory Rate: 20 bpm Temperature: 36 .8 (C) / 98.2 (F) Weight: 200 lbs 07/03/2013 Blood Pressure 1: 124/82 Code: 8480-6 BMI: 33.3 Code: 93813-6 Heart Rate 1: 72 bpm Height: 5'5" Respiratory Rate: 22 bpm Temperature: 36 .1 (C) / 97.0 (F) Weight: 200 lbs 05/27/2013 Blood Pressure 1: 126/82 Code: 8480-6 Heart Rate 1: 74 bpm Respiratory Rate: 20 bpm Temperature: 36.0 (C) / 96.8 (F) Weight: 199 lbs 04/06/2013 Blood Pressure 1: 118/80 Code: 8480-6 BMI: 35.2 Code: 86839-2 Heart Rate 1: 80 bpm Height: 5'4" Respiratory Rate: 20 bpm Temperature: 37 .4 (C) / 99.3 (F) Weight: 205 lbs 11/10/2012 Blood Pressure 1: 128/82 Code: 8480-6 Heart Rate 1: 84 bpm Respiratory Rate: 20 bpm Temperature: 36.7 (C) / 98.0 (F) Weight: 199 lbs 09/02/2012 Blood Pressure 1: 116/82 Code: 8480-6 BMI: 34.2 Code: 72574-7 Heart Rate 1: 88 bpm Height: 5'4" Respiratory Rate: 22 bpm Temperature: 36 .6 (C) / 97.8 (F) Weight: 199 lbs 08/04/2012 Blood Pressure 1: 128/74 Code: 8480-6 BMI: 34.0 Code: 56673-0 Heart Rate 1: 92 bpm Height: 5'4" Respiratory Rate: 20 bpm Temperature: 36 .4 (C) / 97.5 (F) Weight: 198 lbs 07/21/2012 Blood Pressure 1: 124/86 Code: 8480-6 Heart Rate 1: 116 bpm Respiratory Rate: 24 bpm Temperature: 36.8 (C) / 98.2 (F) 07/02/2012 Blood Pressure 1: 116/88 Code: 8480-6 BMI: 33.6 Code: 03405-4 Heart Rate 1: 76 bpm Height: 5'4" Respiratory Rate: 20 bpm Temperature: 36 .8 (C) / 98.3 (F) Weight: 196 lbs 06/24/2012 Blood Pressure 1: 124/80 Code: 8480-6 BMI: 34.3 Code: 75951-6 Heart Rate 1: 72 bpm Height: 5'4" SpO2: 96% Temperature: 36.3 (C) / 97.3 (F) Weight: 200 lbs 05/20/2012 Blood Pressure 1: 116/88 Code: 8480-6 BMI: 33.8 Code: 55083-1 Heart Rate 1: 80 bpm Height: 5'4" Respiratory Rate: 22 bpm Temperature: 36 .9 (C) / 98.4 (F) Weight: 197 lbs 05/08/2012 Blood Pressure 1: 128/86 Code: 8480-6 BMI: 33.8 Code: 29762-1 Heart Rate 1: 76 bpm Height: 5'4" Respiratory Rate: 26 bpm SpO2: 95% Tempera ture: 36.1 (C) / 97.0 (F) Weight: 197 lbs 04/22/2012 Blood Pressure 1: 106/64 Code: 8480-6 BMI: 33.8 Code: 71699-2 Heart Rate 1: 70 bpm Height: 5'4" Temperature: 36.1 (C) / 97.0 (F) Weight: 197 lbs 02/13/2012 Blood Pressure 1: 126/82 Code: 8480-6 BMI: 34.7 Code: 82502-3 Heart Rate 1: 64 bpm Height: 5'4" Respiratory Rate: 20 bpm Temperature: 36 .6 (C) / 97.8 (F) Weight: 202 lbs 01/28/2012 Blood Pressure 1: 116/80 Code: 8480-6 BMI: 34.7 Code: 40400-4 Heart Rate 1: 76 bpm Height: 5'4" Respiratory Rate: 20 bpm Temperature: 36 .8 (C) / 98.3 (F) Weight: 202 lbs 12/26/2011 Blood Pressure 1: 132/82 Code: 8480-6 BMI: 36.0 Code: 28243-3 Heart Rate 1: 68 bpm Height: 5'4" Respiratory Rate: 22 bpm Temperature: 36 .7 (C) / 98.0 (F) Weight: 210 lbs 11/14/2011 Blood Pressure 1: 124/80 Code: 8480-6 BMI: 36.4 Code: 53664-5 Heart Rate 1: 76 bpm Height: 5'4" Respiratory Rate: 20 bpm Temperature: 36 .8 (C) / 98.2 (F) Weight: 212 lbs 09/12/2011 Blood Pressure 1: 108/74 Code: 8480-6 BMI: 37.1 Code: 35596-8 Heart Rate 1: 72 bpm Height: 5'4" Respiratory Rate: 20 bpm Temperature: 37 .0 (C) / 98.6 (F) Weight: 216 lbs 08/15/2011 Blood Pressure 1: 122/80 Code: 8480-6 BMI: 36.9 Code: 06440-5 Heart Rate 1: 76 bpm Height: 5'4" Respiratory Rate: 20 bpm Temperature: 36 .2 (C) / 97.1 (F) Weight: 215 lbs 08/09/2011 Blood Pressure 1: 112/78 Code: 8480-6 BMI: 36.9 Code: 24358-3 Heart Rate 1: 68 bpm Height: 5'4" Respiratory Rate: 20 bpm Temperature: 36 .7 (C) / 98.0 (F) Weight: 215 lbs 07/03/2011 Blood Pressure 1: 140/94 Code: 8480-6 BMI: 36.2 Code: 78688-5 Heart Rate 1: 68 bpm Height: 5'4" Temperature: 36.0 (C) / 96.8 (F) Weight: 211 lbs 06/04/2011 Blood Pressure 1: 124/70 Code: 8480-6 BMI: 36.7 Code: 70970-1 Heart Rate 1: 68 bpm Height: 5'4" Respiratory Rate: 20 bpm Temperature: 36 .6 (C) / 97.9 (F) Weight: 214 lbs 05/03/2011 Blood Pressure 1: 130/76 Code: 8480-6 BMI: 36.4 Code: 55815-3 Heart Rate 1: 74 bpm Height: 5'5" Temperature: 36.2 (C) / 97.2 (F) Weight: 219 lbs 04/05/2011 Blood Pressure 1: 124/86 Code: 8480-6 BMI: 35.9 Code: 62383-1 Heart Rate 1: 76 bpm Height: 5'6" Respiratory Rate: 22 bpm Temperature: 36 .3 (C) / 97.3 (F) Weight: 219 lbs 03/08/2011 Blood Pressure 1: 112/78 Code: 8480-6 BMI: 35.1 Code: 00660-0 Heart Rate 1: 80 bpm Height: 5'6" Respiratory Rate: 26 bpm Temperature: 36 .9 (C) / 98.4 (F) Weight: 214 lbs 01/24/2011 Blood Pressure 1: 110/82 Code: 8480-6 BMI: 35.6 Code: 53506-7 Heart Rate 1: 80 bpm Height: 5'6" Temperature: 36.1 (C) / 97.0 (F) Weight: 217 lbs 01/02/2011 Blood Pressure 1: 106/72 Code: 8480-6 BMI: 35.6 Code: 77503-5 Heart Rate 1: 76 bpm Height: 5'6" [...] 1: 120/74 Code: 8480-6 BMI: 35.9 Code: 54486-4 Heart Rate 1: 72 bpm Height: 5'5" Temperature: 36.3 (C) / 97.4 (F) Weight: 216 lbs 09/19/2010 Blood Pressure 1: 124/80 Code: 8480-6 BMI: 35.4 Code: 36750-6 Heart Rate 1: 76 bpm Height: 5'5" [...] 1: 122/78 Code: 8480-6 BMI: 37.4 Code: 34661-1 Heart Rate 1: 84 bpm Height: 5'5" [...] up 07/05/2015 4wk fwup follow up 06/06/2015 [facility] cough 05/23/2015 follow up 05/05/2015 dyspnea 03/30/2015 [facility] needs new orde r for O2 abdominal pain 02/03/2015 cyst 12/29/2014 vs abscess follow up 09/02/2014 [facility] headache 08/25/2014 facial drooping follow up 04/01/2014 ER follow up 03/16/2014 1wk fwup follow up 03/09/2014 1mo fwup and bronchi tis fwup follow up 03/03/2014 2 day follow up 03/01/2014 ER follow up 02/09/2014 [facility] gastroesophageal reflux 12/23/2013 painful urination 10/30/2013 [...] up 08/04/2012 2wk fwup follow up 07/21/2012 [facility]--[facility] an sore throat 07/02/2012 headache 06/25/2012 [...] up 10/18/[address] Marcela sagastume w [place], having increased allergy symptoms. Would like steroid [...] month f/u follow up 12/07/2009 from [facility], done with PT--finished [...] K59.00] Pattie Floresjuan BRUNSON S. Emma WICK [employer] CPT-4: 36924 08/04/2019 ([id number]) OFFICE/OUTPATIENT VISIT EST Diagnosis: Inspiratory stridor[ICD10: R06.1] Diagnosis: Diarrhea[ICD10: R19.7] Belia Reid [facility] CPT-4: 9921 3 07/06/2019 ([id number]) OFFICE/OUTPATIENT VISIT EST Diagnosis: Left leg swelling[ICD10: M79.89] Diagnosis: Dyspnea[ICD10: R06.00] Belia Reid [facility] CPT-4: 9921 3 06/24/2019 ([id number]) OFFICE/OUTPATIENT VISIT EST Diagnosis: Acute bronchitis[ICD10: J20.9] Diagnosis: Colitis[ICD10: K52.9] [facility] CPT-4: 39305 06/16/2019 ([id number]) OFFICE/OUTPATIENT VISIT EST Diagnosis: Diarrhea[ICD10: R19.7] Diagnosis: Abdominal bloating[ICD10: R14.0] Belia Reid [facility] CPT- 4: 16853 06/08/2019 ([id number]) OFFICE/OUTPATIENT VISIT EST Diagnosis: Acute febrile illness[ICD10: R50.9] Diagnosis: Colitis[ICD10: K52.9] Belia Reid [facility] CPT-4: 70090 05/26/2019 ([id number]) OFFICE/OUTPATIENT VISIT EST Diagnosis: Chronic obstructive pulmonary disease, unspecified[ICD10: J44.9] Diagnosis: Pulmonary fibrosis[ICD10: J84.10] Diagnosis: Intermittent stridor[ICD10: R06.1] Diagnosis: Muscle weakness[ICD10: M62.81] Belia REID DO [facility] CPT-4: 83834 05/13/2019 ([id number]) OFFICE/OUTPATIENT VISIT EST Diagnosis: Stridor[ICD10: R06.1] Diagnosis: COUGH[ICD10: R05] Belia REID DO [facility] CPT-4: 75671 05/06/2019 ([id number]) OFFICE/OUTPATIENT VISIT EST Diagnosis: Stridor[ICD10: R06.1] Diagnosis: Muscle, jerky movements (uncontrolled)[ICD10: G25.5] Belia REID Golimi [facility] CPT-4: 01723 04/29/2019 ([id number]) OFFICE/OUTPATIENT VISIT EST Diagnosis: Upper respiratory infection[ICD10: J06.9] Diagnosis: Flank pain[ICD10: R10.9] Diagnosis: Weight gain[ICD10: R63.5] Pattie AMBRIZ Golimi [facility] CPT-4: 61507 04/16/2019 ([id number]) OFFICE/OUTPATIENT VISIT EST Diagnosis: Generalized pruritus[ICD10: L29.9] Belia REID Golimi [facility] CPT-4: 56589 04/08/2019 ([id number]) OFFICE/OUTPATIENT VISIT EST Diagnosis: Acute bursitis of left shoulder[ICD10: M75.52] Diagnosis: Cervicalgia[ICD10: M54.2] Diagnosis: Chest wall pain[ICD10: R07.89] Belia REID Golimi [facility] CPT-4: 35662 01/22/2019 ([id number]) OFFICE/OUTPATIENT VISIT EST Diagnosis: Abdominal pain[ICD10: R10.9] Diagnosis: Pyelonephritis[ICD10: N12] Pattie GORDILLO ALBERTO Golimi [facility] CPT-4: 87077 01/07/2019 ([id number]) OFFICE/OUTPATIENT VISIT EST Diagnosis: Low back pain[ICD10: M54.5] Diagnosis: Left lumbar radiculopathy[ICD10: M54.16] Diagnosis: Left flank pain[ICD10: R10.9] Diagnosis: Left lower quadrant pain[ICD10: R10.32] Diagnosis: FLU VACCINE[ICD10: Z23] Belia FREDERICK DO [facility] CPT-4: 10179 12/24/2018 ([id number]) OFFICE/OUTPATIENT VISIT EST Diagnosis: Migraine, unspecified, not intractable, without status migrainosus[ICD10: G43.909] Diagnosis: Fibromyalgia[ICD10: M79.7] Belia DOMINGUEZ [facility] CPT-4: 29420 11/20/2018 ([id number]) OFFICE/OUTPATIENT VISIT EST Diagnosis: Migraine, unspecified, intractable, without status migrainosus[ICD10: G43.919] Diagnosis: Acute sinusitis, unspecified[ICD10: J01.90] Pattie REID DO [facility] CPT-4: 30880 11/04/2018 ([id number]) OFFICE/OUTPATIENT VISIT EST Diagnosis: Pain in left wrist[ICD10: M25.532] Diagnosis: Other dorsalgia[ICD10: M54.89] Pattie REID DO [facility] CPT-4: 81373 09/08/2018 ([id number]) OFFICE/OUTPATIENT VISIT EST Diagnosis: Acute stress reaction[ICD10: F43.0] Diagnosis: Pruritus, unspecified[ICD10: L29.9] 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, 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] Belia REID [facility] CPT-4: 93933 08/20/2018 ([id number]) OFFICE/OUTPATIENT VISIT EST Diagnosis: Hypotension due to drugs[ICD10: I95.2] Diagnosis: Paroxysmal atrial fibrillation[ICD10: I48.0] Diagnosis: Localized edema[ICD10: R60.0] Belia REID DO [facility] CPT-4: 59416 06/19/2018 ([id number]) OFFICE/OUTPATIENT VISIT EST Diagnosis: Generalized hyperhidrosis[ICD10: R61] Diagnosis: Essential (primary) hypertension[ICD10: I10] Diagnosis: Supraventricular tachycardia[ICD10: I47.1] Belia REID DO [facility] CPT-4: 32196 06/09/2018 ([id number]) OFFICE/OUTPATIENT VISIT EST Diagnosis: Stridor[ICD10: R06.1] Diagnosis: Dependence on supplemental oxygen[ICD10: Z99.81] Diagnosis: Weakness[ICD10: R53.1] Diagnosis: Supraventricular tachycardia[ICD10: I47.1] Belia REID DO [facility] CPT-4: 75939 05/21/2018 ([id number]) OFFICE/OUTPATIENT VISIT EST Diagnosis: Cervical disc disorder with radiculopathy, unspecified cervical region[ICD10: M50.10] Belia REID [facility] CPT-4: 53443 04/16/2018 ([id number]) OFFICE/OUTPATIENT VISIT EST Diagnosis: Migraine, unspecified, intractable, without status migrainosus[ICD10: G43.919] Diagnosis: Fibromyalgia[ICD10: M79.7] Pattie DOMINGUEZ Golimi [facility] CPT-4: 25355 04/01/2018 ([id number]) NURSE/OUTPATIENT VISIT EST Diagnosis: Hematuria, unspecified[ICD10: R31.9] Diagnosis: Dysuria[ICD10: R30.0] Belia REID Golimi [facility] CPT-4: 22129 03/17/2018 ([id number]) OFFICE/OUTPATIENT VISIT EST Diagnosis: Erythema intertrigo[ICD10: L30.4] Diagnosis: Chronic obstructive pulmonary disease with (acute) exacerbation[ICD10: J44.1] Diagnosis: Type 2 diabetes mellitus with hyperglycemia[ICD10: E11.65] Belia REID Golimi [facility] CPT-4: 68908 03/06/2018 ([id number]) OFFICE/OUTPATIENT VISIT EST Diagnosis: Cervicalgia[ICD10: M54.2] Pattie AMBRIZ Golimi [facility] CPT-4: 99406 02/05/2018 ([id number]) OFFICE/OUTPATIENT VISIT EST Diagnosis: Candidiasis of skin and nail[ICD10: B37.2] Diagnosis: Cervicalgia[ICD10: M54.2] Pattie AMBRIZ [facility] CPT-4: 07007 01/20/2018 ([id number]) OFFICE/OUTPATIENT VISIT EST Diagnosis: Pain in thoracic spine[ICD10: M54.6] Diagnosis: Radiculopathy, thoracic region[ICD10: M54.14] Belia [facility]E [facility] CPT-4: 95195 12/25/2017 ([id number]) OFFICE/OUTPATIENT VISIT EST Diagnosis: Pain in thoracic spine[ICD10: M54.6] Diagnosis: Other muscle spasm[ICD10: M62.838] Diagnosis: FLU VACCINE[ICD10: Z23] Diagnosis: PNEUMOCOCCAL VACCINE[ICD10: Z23] Belia [facility] CPT-4: 42732 12/17/2017 ([id number]) OFFICE/OUTPATIENT VISIT EST Diagnosis: Chronic obstructive pulmonary disease with (acute) exacerbation[ICD10: J44.1] Belia REID [facility] CPT- 4: 23381 10/30/2017 ([id number]) OFFICE/OUTPATIENT VISIT EST Diagnosis: Chronic obstructive pulmonary disease with acute lower respiratory infection[ICD10: J44.0] Diagnosis: Mild intermittent asthma with (acute) exacerbation[ICD10: J45.21] Belia REID [facility] CPT-4: 75643 10/23/2017 ([id number]) NURSE/OUTPATIENT VISIT EST Diagnosis: Migraine, unspecified, not intractable, without status migrainosus[ICD10: G43.909] Belia REID [facility] CPT - 4: 53698 08/26/2017 ([id number]) OFFICE/OUTPATIENT VISIT EST Diagnosis: Urinary tract infection, site not specified[ICD10: N39.0] Diagnosis: Encounter for screening for osteoporosis[ICD10: Z13.820] Diagnosis: Encounter for screening mammogram for malignant neoplasm of breast[ICD10: Z12.31] Diagnosis: Acute bronchitis, unspecified[ICD10: J20.9] Pattie REID DO [facility] CPT-4: 61110 07/19/2017 ([id number]) OFFICE/OUTPATIENT VISIT EST Diagnosis: Rash and other nonspecific skin eruption[ICD10: R21] Pattie REID DO [facility] CPT-4: 90694 05/29/2017 ([id number]) OFFICE/OUTPATIENT VISIT EST Diagnosis: Diarrhea, unspecified[ICD10: R19.7] Diagnosis: Tinea corporis[ICD10: B35.4] Diagnosis: Tinea cruris[ICD10: B35.6] Diagnosis: Migraine, unspecified, not intractable, without status migrainosus[ICD10: G43.909] Belia REID DO [facility] CPT - 4: 31372 05/07/2017 ([id number]) OFFICE/OUTPATIENT VISIT EST Diagnosis: Stridor[ICD10: R06.1] Diagnosis: Chronic obstructive pulmonary disease with (acute) exacerbation[ICD10: J44.1] Belia REID [facility] CPT- 4: 58703 03/18/2017 ([id number]) OFFICE/OUTPATIENT VISIT EST Diagnosis: Type 2 diabetes mellitus with hyperglycemia[ICD10: E11.65] Belia REID DO [facility] CPT-4: 83643 02/27/2017 OFFICE/OUTPATIENT VISIT EST Diagnosis: Type 2 diabetes mellitus with hyperglycemia[ICD10: E11.65] Pattie REID DO [facility] CPT-4: 16670 02/22/2017 ([id number]) OFFICE/OUTPATIENT VISIT EST Diagnosis: Urinary tract infection, site not specified[ICD10: N39.0] Diagnosis: Pneumonia, unspecified organism[ICD10: J18.9] Diagnosis: Type 2 diabetes mellitus with hyperglycemia[ICD10: E11.65] Belia REID [facility] CPT-4: 52732 01/23/2017 ([id number]) OFFICE/OUTPATIENT VISIT EST Diagnosis: Type 2 diabetes mellitus with hyperglycemia[ICD10: E11.65] Diagnosis: Localized edema[ICD10: R60.0] Diagnosis: PNEUMOCOCCAL VACCINE[ICD10: Z23] Diagnosis: FLU VACCINE[ICD10: Z23] Belia FREDERICK [facility] CPT-4: 93194 12/20/2016 OFFICE/OUTPATIENT VISIT EST Diagnosis: Pain in thoracic spine[ICD10: M54.6] Diagnosis: Low back pain[ICD10: M54.5] Diagnosis: Cervicalgia[ICD10: M54.2] Diagnosis: Cough[ICD10: R05] Celeste Ferreira BELIA REID [facility] CPT-4: 02792 10/08/2016 ([id number]) OFFICE/OUTPATIENT VISIT EST Diagnosis: Primary insomnia[ICD10: F51.01] Diagnosis: Migraine, unspecified, not intractable, without status migrainosus[ICD10: G43.909] Diagnosis: Type 2 diabetes mellitus with hyperglycemia[ICD10: E11.65] Belia REID [facility] CPT-4: 84761 09/19/2016 ([id number]) OFFICE/OUTPATIENT VISIT EST Diagnosis: Migraine, unspecified, not intractable, without status migrainosus[ICD10: G43.909] Diagnosis: Generalized abdominal pain[ICD10: R10.84] Diagnosis: Cough[ICD10: R05] Belia REID DO [facility] CPT-4: 18753 08/20/2016 ([id number]) OFFICE/OUTPATIENT VISIT EST Diagnosis: Chronic obstructive pulmonary disease, unspecified[ICD10: J44.9] Diagnosis: Stridor[ICD10: R06.1] Belia REID [facility] CPT-4: 17754 06/19/2016 ([id number]) OFFICE/OUTPATIENT VISIT EST Diagnosis: Chronic obstructive pulmonary disease, unspecified[ICD10: J44.9] Diagnosis: Personal history of urinary (tract) infections[ICD10: Z87.440] Belia REID DO [facility] CPT-4: 80141 06/04/2016 ([id number]) OFFICE/OUTPATIENT VISIT EST Diagnosis: Stridor[ICD10: R06.1] Diagnosis: Chronic obstructive pulmonary disease with acute lower respiratory infection[ICD10: J44.0] Diagnosis: Other specified diseases of intestine[ICD10: K63.89] Diagnosis: Cystitis, unspecified without hematuria[ICD10: N30.90] Belia REID Golimi [facility] CPT-4: 42834 05/02/2016 ([id number]) OFFICE/OUTPATIENT VISIT EST Diagnosis: Fibromyalgia[ICD10: M79.7] Diagnosis: Urinary tract infection, site not specified[ICD10: N39.0] Belia REID DO [facility] CPT-4: 58187 04/03/2016 ([id number]) OFFICE/OUTPATIENT VISIT EST Diagnosis: Unspecified asthma, uncomplicated[ICD10: J45.909] Diagnosis: Cough[ICD10: R05] Lidia REID Golimi [facility] T-4: 03524 02/29/2016 ([id number]) OFFICE/OUTPATIENT VISIT EST Diagnosis: Migraine, unspecified, intractable, without status migrainosus[ICD10: G43.919] Diagnosis: Urinary tract infection, site not specified[ICD10: N39.0] Belia REID Golimi [facility] CPT-4: 27669 02/02/2016 ([id number]) OFFICE/OUTPATIENT VISIT EST Diagnosis: Urinary tract infection, site not specified[ICD10: N39.0] Diagnosis: Unspecified abdominal pain[ICD10: R10.9] Diagnosis: Pain in thoracic spine[ICD10: M54.6] Diagnosis: Type 2 diabetes mellitus with diabetic neuropathic arthropathy[ICD10: E11.610] Belia REID Golimi [facility] CPT-4: 41783 12/05/2015 ([id number]) OFFICE/OUTPATIENT VISIT EST Diagnosis: Chronic obstructive pulmonary disease with (acute) exacerbation[ICD10: J44.1] Diagnosis: Migraine, unspecified, not intractable, without status migrainosus[ICD10: G43.909] Lidia Jaiden CORNELLLINE Yuridia REID Golimi [facility] CPT -4: 49538 10/26/2015 ([id number]) OFFICE/OUTPATIENT VISIT EST Diagnosis: Hematuria, unspecified[ICD10: R31.9] Diagnosis: Urinary tract infection, site not specified[ICD10: N39.0] Lidia HSUQUELINE Yuridia REID Golimi [facility] CPT-4: 24921 10/05/2015 OFFICE/OUTPATIENT VISIT EST Diagnosis: Chronic obstructive pulmonary disease, unspecified[ICD10: J44.9] Diagnosis: Muscle weakness (generalized)[ICD10: M62.81] Diagnosis: Polyneuropathy, unspecified[ICD10: G62.9] Diagnosis: Other intervertebral disc degeneration, 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] Diagnosis: Fibromyalgia[ICD10: M79.7] Belia CORNELLLINE Yuridia DOMINGUEZ [facility] CPT-4: 93108 09/15/2015 ([id number]) OFFICE/OUTPATIENT VISIT EST Diagnosis: Disorientation, unspecified[ICD10: R41.0] Diagnosis: Headache[ICD10: R51] Diagnosis: Paresthesia of skin[ICD10: R20.2] Lidia CORNELLHERNANDEZ Paredes Yuridia REID Golimi [facility] CPT-4: 07696 08/24/2015 ([id number]) OFFICE/OUTPATIENT VISIT EST Diagnosis: Type 2 diabetes mellitus with hyperglycemia[ICD10: E11.65] Diagnosis: Chronic obstructive pulmonary disease with acute lower respiratory infection[ICD10: J44.0] Belia REID Golimi [facility] CPT-4: 26524 07/05/2015 ([id number]) OFFICE/OUTPATIENT VISIT EST Diagnosis: Mild intermittent asthma with (acute) exacerbation[ICD10: J45.21] Diagnosis: Chronic obstructive pulmonary disease, unspecified[ICD10: J44.9] Belia Zacharyisabellaannie CORNELLBELIA BushraMayda ANUSHKA Golimi [facility] CPT-4: 49929 06/06/2015 ([id number]) OFFICE/OUTPATIENT VISIT EST Diagnosis: Chronic obstructive pulmonary disease with (acute) exacerbation[ICD10: J44.1] Lidia HSUQUELINE BushraMayda ANUSHKA Golimi [facility] CPT- 4: 47628 05/23/2015 ([id number]) OFFICE/OUTPATIENT VISIT EST Diagnosis: Type 2 diabetes mellitus with hyperglycemia[ICD10: E11.65] Diagnosis: Functional dyspepsia[ICD10: K30] Belia Anushka CORNELLLINE Yuridia REID Golimi [facility] CPT-4: 59098 05/05/2015 ([id number]) OFFICE/OUTPATIENT VISIT EST Diagnosis: Type 2 diabetes mellitus with hyperglycemia[ICD10: E11.65] Diagnosis: Glycosuria[ICD10: R81] Diagnosis: Urinary tract infection, site not specified[ICD10: N39.0] Belia REID [facility] CPT-4: 51504 03/30/2015 ([id number]) OFFICE/OUTPATIENT VISIT EST Diagnosis: Generalized abdominal pain[ICD10: R10.84] Diagnosis: Diarrhea, unspecified[ICD10: R19.7] Diagnosis: Urinary tract infection, site not specified[ICD10: N39.0] Diagnosis: Gastro-esophageal reflux disease without esophagitis[ICD10: K21.9] Belia [facility] CPT-4: 50847 02/03/2015 ([id number]) OFFICE/OUTPATIENT VISIT EST Diagnosis: Other specified noninflammatory disorders of vagina[ICD10: N89.8] Diagnosis: Follicular disorder, unspecified[ICD10: L73.9] Diagnosis: Functional dyspepsia[ICD10: K30] Diagnosis: FLU VACCINE[ICD10: Z23] Belia [facility] CPT-4: 09299 12/29/2014 ([id number]) OFFICE/OUTPATIENT VISIT EST 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] Diagnosis: RESTLESS LEGS SYNDROME[ICD9: 333.94] Diagnosis: MIGRAINE NOS/NOT INTRCBL[ICD9: 346.90] Beliahanna Humphriesisabellaannie HSUFlorencio COKER Yuridia [facility] CPT-4: 33965 09/02/2014 ([id number]) OFFICE/OUTPATIENT VISIT EST Diagnosis: Cervical radiculopathy[ICD9: 723.4] Diagnosis: Cervicalgia[ICD9: 723.1] Diagnosis: Degenerative disc disease, cervical[ICD9: 722.4] 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I[ICD9: 250.00] Beliahanna [facility] CPT-4: 53573 04/01/2014 OFFICE/OUTPATIENT VISIT EST Diagnosis: Reactive airway disease[ICD9: 493.90] Belia Zacharyisabellaannie MINAL CALVO Yuridia [facility] CPT-4: 31916 03/16/2014 ([id number]) OFFICE/OUTPATIENT VISIT EST Diagnosis: BRONCHITIS, ACUTE[ICD9: 466.0] Diagnosis: Reactive airway disease[ICD9: 493.90] Belia REID DO [facility] CPT-4: 42567 03/09/2014 OFFICE/OUTPATIENT VISIT EST Diagnosis: BRONCHITIS, ACUTE[ICD9: 466.0] Diagnosis: WHEEZING[ICD9: 786.07] Huong Peguero [facility] CPT-4: 92806 03/03/2014 OFFICE/OUTPATIENT VISIT EST Diagnosis: BRONCHITIS, ACUTE[ICD9: 466.0] Diagnosis: WHEEZING[ICD9: 786.07] Huong Peguero [facility] CPT-4: 53367 03/01/2014 ([id number]) OFFICE/OUTPATIENT VISIT EST Diagnosis: GERD[ICD9: 530.81] Diagnosis: ARTHRALGIA-MULTIPLE SITES[ICD9: 719.49] Diagnosis: LUMB/LUMBOSAC DISC DEGEN[ICD9: 722.52] Diagnosis: - I - FIBROMYALGIA[ICD9: 729.1] Belia REID [facility] CPT-4: 25970 02/09/2014 ([id number]) OFFICE/OUTPATIENT VISIT EST Diagnosis: Peptic ulcer disease[ICD9: 533.90] Diagnosis: RESTLESS LEGS SYNDROME[ICD9: 333.94] Diagnosis: Neuropathy[ICD9: 355.9] Belia FRDEERICK [facility] CPT-4: 47835 12/23/2013 ([id number]) OFFICE/OUTPATIENT VISIT EST Diagnosis: URINARY TRACT INFECTION[ICD9: 599.0] Belia REID [facility] CPT-4: 89919 10/30/2013 ([id number]) OFFICE/OUTPATIENT VISIT EST Diagnosis: Flank pain[ICD9: 789.00] Belia CORNELLLINE Yuridia POOLE [facility] CPT-4: 48009 10/21/2013 ([id number]) OFFICE/OUTPATIENT VISIT EST Diagnosis: INFLAMED SEBORR KERATOS[ICD9: 702.11] Diagnosis: Brachioradial pruritus[ICD9: 698.9] Diagnosis: ASTHMA NOS[ICD9: 493.90] Belia Zacharynilson BRUNSON BushraMayda KIESHA POOLE [facility] CPT-4: 15060 10/05/2013 ([id number]) OFFICE/OUTPATIENT VISIT EST Diagnosis: HYPERTENSION[ICD9: 401.9] Diagnosis: - I - FIBROMYALGIA[ICD9: 729.1] Diagnosis: DIZZINESS/VERTIGO[ICD9: 780.4] Diagnosis: MIGRAINE NOS/NOT INTRCBL[ICD9: 346.90] Diagnosis: Diabetic peripheral neuropathy[ICD9: 250.60] Diagnosis: Flank pain[ICD9: 789.00] Belia BRUNSON BushraMayda KIESHA POOLE [employer] CPT-4: 08909 08/04/2013 ([id number]) OFFICE/OUTPATIENT VISIT EST Diagnosis: ALLERGIC RHINITIS[ICD9: 477.9] Belia Zacharyisabellaannie BELIA Bushra Mayda ANUSHKA RUDOLPH [facility] CPT-4: 98590 07/13/2013 OFFICE/OUTPATIENT VISIT EST Diagnosis: URINARY TRACT INFECTION[ICD9: 599.0] Huong ARNOLD SMadya ANUSHKA Golimi [facility] CPT-4: 31666 07/03/2013 OFFICE/OUTPATIENT VISIT EST Diagnosis: HYPERTENSION[ICD9: 401.9] Diagnosis: URINARY TRACT INFECTION[ICD9: 599.0] Diagnosis: BACKACHE[ICD9: 724.5] Diagnosis: URINARY INCONTINENCE[ICD9: 788.30] Huong SALAZAR SMayda REID Golimi [facility] CPT-4: 00501 05/27/2013 ([id number]) OFFICE/OUTPATIENT VISIT EST Diagnosis: Flank pain[ICD9: 789.00] Belia BRUNSON BushraMayda KIESHA POOLE [employer] CPT-4: 69359 05/25/2013 ([id number]) OFFICE/OUTPATIENT VISIT EST Diagnosis: B-COMPLEX DEFIC NEC[ICD9: 266.2] Belia BRUNSON BushraMayda ANUSHKA RUDOLPH [facility] CPT-4: 36225 05/04/2013 ([id number]) OFFICE/OUTPATIENT VISIT EST Diagnosis: ALLERGIC RHINITIS[ICD9: 477.9] Diagnosis: Vitamin B12 deficiency[ICD9: 266.2] Belia THOMPSON Yuridia REID [facility] CPT-4: 57227 04/17/2013 ([id number]) OFFICE/OUTPATIENT VISIT EST 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I[ICD9: 250.00] Diagnosis: URINARY TRACT INFECTION[ICD9: 599.0] Diagnosis: DIZZINESS/VERTIGO[ICD9: 780.4] Diagnosis: DIARRHEA[ICD9: 787.91] Belia BRUNSON BushraMayda RALF Peguero [facility] CPT-4: 51732 04/06/2013 ([id number]) OFFICE/OUTPATIENT VISIT EST Diagnosis: URINARY TRACT INFECTION[ICD9: 599.0] Diagnosis: URINARY RETENTION[ICD9: 788.20] Beliahanna BRUNSON BushraMayda ANUSHKA [facility] CPT-4: 76053 11/10/2012 ([id number]) OFFICE/OUTPATIENT VISIT EST Diagnosis: TACHYCARDIA[ICD9: 785.0] Diagnosis: SYNCOPE AND COLLAPSE[ICD9: 780.2] Diagnosis: CONSCIOUSNS ALTERAT NEC[ICD9: 780.09] Belia CALVO BushraMayda ANUSHKA [facility] CPT-4: 75258 09/02/2012 OFFICE/OUTPATIENT VISIT EST Diagnosis: TACHYCARDIA[ICD9: 785.0] Diagnosis: SYNCOPE AND COLLAPSE[ICD9: 780.2] Belia Paredes BushraMayda ANUSHKA [facility] CPT-4: 79794 08/04/2012 ([id number]) OFFICE/OUTPATIENT VISIT EST Diagnosis: Loss of consciousness[ICD9: 780.09] Diagnosis: Tachycardia[ICD9: 785.0] Diagnosis: MALAISE AND FATIGUE[ICD9: 780.79] Belia Paredes BushraMayda ANUSHKA [facility] CPT-4: 16971 07/21/2012 ([id number]) OFFICE/OUTPATIENT VISIT EST Diagnosis: BRONCHITIS, ACUTE[ICD9: 466.0] Diagnosis: ASTHMA NOS[ICD9: 493.90] Belia BRUNSON BushraMayda KIESHA VIRGILIO [facility] CPT-4: 34537 07/02/2012 ([id number]) OFFICE/OUTPATIENT VISIT EST Diagnosis: CEPHALGIA[ICD9: 784.0] Belia BRUNSON BushraMayda ZACHARYANT Peguero [facility] CPT-4: 32477 06/25/2012 ([id number]) OFFICE/OUTPATIENT VISIT EST Diagnosis: GERD[ICD9: 530.81] Diagnosis: DIARRHEA[ICD9: 787.91] Diagnosis: URINARY TRACT INFECTION[ICD9: 599.0] Diagnosis: ASTHMA NOS[ICD9: 493.90] Diagnosis: ALLERGIC RHINITIS[ICD9: 477.9] Belia HSUQUELINE Bushra Mayda ANUSHKA [facility] CPT-4: 57522 06/24/2012 ([id number]) OFFICE/OUTPATIENT VISIT EST Diagnosis: MIGRAINE NOS/NOT INTRCBL[ICD9: 346.90] Diagnosis: TREMOR NEC[ICD9: 333.1] Diagnosis: CHRONIC PAIN SYNDROME[ICD9: 338.4] Belia Zacharynilson SALAZAR BushraMayda LUIS Golimi [facility] CPT-4: 99236 05/20/2012 ([id number]) OFFICE/OUTPATIENT VISIT EST Diagnosis: DIZZINESS/VERTIGO[ICD9: 780.4] Diagnosis: PALPITATIONS[ICD9: 785.1] Diagnosis: TREMOR NEC[ICD9: 333.1] Diagnosis: ANXIETY STATE NOS[ICD9: 300.00] Diagnosis: POSTTRAUMATIC STRESS DISORDER[ICD9: 309.81] Belia CORNELLLINE BushraMayda LUIS Golimi [facility] CPT-4: 12825 05/08/2012 ([id number]) OFFICE/OUTPATIENT VISIT EST Diagnosis: MIGRAINE NOS/NOT INTRCBL[ICD9: 346.90] Diagnosis: FIBROMYALGIA[ICD9: 729.1] Diagnosis: SYNCOPE AND COLLAPSE[ICD9: 780.2] Diagnosis: Diabetic peripheral neuropathy[ICD9: 250.60] Belia Humphriesisabellaannie BELIA BushraMayda LUIS Golimi [facility] CPT-4: 79383 04/22/2012 OFFICE/OUTPATIENT VISIT EST Diagnosis: ROTATOR CUFF DIS NEC[ICD9: 726.19] Diagnosis: JOINT PAIN-SHLDER[ICD9: 719.41] Diagnosis: DYSPEPSIA[ICD9: 536.8] Belia Zacharynilson BELIA BushraMayda RALF Golimi [facility] CPT-4: 76853 02/13/2012 ([id number]) OFFICE/OUTPATIENT VISIT EST Diagnosis: MIGRAINE NOS/NOT INTRCBL[ICD9: 346.90] Diagnosis: GERD[ICD9: 530.81] Diagnosis: DYSPEPSIA[ICD9: 536.8] Belia TomlinsonMayda RALF Peguero [facility] CPT-4: 56785 01/28/2012 OFFICE/OUTPATIENT VISIT EST Diagnosis: CEPHALGIA[ICD9: 784.0] Diagnosis: MIGRAINE NOS/NOT INTRCBL[ICD9: 346.90] Diagnosis: GERD[ICD9: 530.81] Diagnosis: INSOMNIA NOS[ICD9: 780.52] Belia CORNELLLINE Yuridia DOMINGUEZ [facility] CPT-4: 84042 12/26/2011 ([id number]) OFFICE/OUTPATIENT VISIT EST Diagnosis: CEPHALGIA[ICD9: 784.0] Diagnosis: MIGRAINE NOS/NOT INTRCBL[ICD9: 346.90] Diagnosis: MALAISE AND FATIGUE[ICD9: 780.79] Diagnosis: FIBROMYALGIA[ICD9: 729.1] Diagnosis: ALLERGIC RHINITIS[ICD9: 477.9] Belia Humphriesisabellaannie HSUBELIA Bushra Mayda [facility] CPT-4: 03803 11/14/2011 ([id number]) OFFICE/OUTPATIENT VISIT EST Diagnosis: MALAISE AND FATIGUE[ICD9: 780.79] Diagnosis: MUSCLE WEAKNESS-GENERAL[ICD9: 728.87] Diagnosis: MIGRAINE NOS/NOT INTRCBL[ICD9: 346.90] Diagnosis: JOINT PAIN-SHLDER[ICD9: 719.41] Belia CORNELLLINE BushraMayda [facility] CPT-4: 51493 09/12/2011 ([id number]) OFFICE/OUTPATIENT VISIT EST Diagnosis: CONCUSSION[ICD9: 850.9] Diagnosis: Ataxia[ICD9: 781.3] Diagnosis: DIZZINESS/VERTIGO[ICD9: 780.4] Belia CORNELLLINE Bushra Mayda ANUSHKA [facility] CPT-4: 22789 08/15/2011 ([id number]) OFFICE/OUTPATIENT VISIT EST Diagnosis: THROMBOPHLEBITIS[ICD9: 451.9] Diagnosis: Subacromial bursitis[ICD9: 726.19] Diagnosis: ALLERGIC RHINITIS[ICD9: 477.9] Diagnosis: Lipoma[ICD9: 214.9] Belia HSUQUECLAYTON [facility] CPT-4: 92074 08/09/2011 ([id number]) OFFICE/OUTPATIENT VISIT EST Diagnosis: THROMBOPHLEBITIS[ICD9: 451.9] Diagnosis: Arm pain[ICD9: 729.5] Diagnosis: Clostridium difficile colitis[ICD9: 008.45] Diagnosis: URINARY TRACT INFECTION[ICD9: 599.0] [facility] 07605 07/03/2011 ([id number]) OFFICE/OUTPATIENT VISIT EST Diagnosis: ARTHRALGIA-MULTIPLE SITES[ICD9: 719.49] Diagnosis: Muscle cramp[ICD9: 729.82] Diagnosis: INSOMNIA NOS[ICD9: 780.52] Belia [facility] CPT-[facility]: 51428 06/04/2011 OFFICE/OUTPATIENT VISIT EST Diagnosis: Headache[ICD9: 784.0] Diagnosis: Allergic rhinitis[ICD9: 477.9] [facility] CPT-[facility]: 95723 05/03/2011 OFFICE/OUTPATIENT VISIT EST Diagnosis: LUMB/LUMBOSAC DISC DEGEN[ICD9: 722.52] Diagnosis: MIGRAINE NOS/NOT INTRCBL[ICD9: 346.90] Diagnosis: CHRONIC PAIN SYNDROME[ICD9: 338.4] Diagnosis: RESTLESS LEGS SYNDROME[ICD9: 333.94] [facility] CPT[facility]: 54109 04/05/2011 OFFICE/OUTPATIENT VISIT EST Diagnosis: MIGRAINE NOS/NOT INTRCBL[ICD9: 346.90] Diagnosis: GERD[ICD9: 530.81] Belia RIED [facility] CPT-4: 58892 03/08/2011 OFFICE/OUTPATIENT VISIT EST Diagnosis: URINARY TRACT INFECTION[ICD9: 599.0] Diagnosis: Vertigo[ICD9: 780.4] Diagnosis: GERD[ICD9: 530.81] Beliahanna [facility] CPT-4: 98353 01/24/2011 OFFICE/OUTPATIENT VISIT EST Diagnosis: Hypotension[ICD9: 458.9] Diagnosis: Syncopal episodes[ICD9: 780.2] Diagnosis: MIGRAINE NOS/NOT INTRCBL[ICD9: 346.90] Diagnosis: MALAISE AND FATIGUE[ICD9: 780.79] Belia Paredes SMayda ZACHARYNDER DO [facility] CPT-4: 48362 01/02/2011 OFFICE/OUTPATIENT VISIT EST Diagnosis: Tinea cruris[ICD9: 110.3] Diagnosis: Intertrigo[ICD9: 695.89] Diagnosis: MIGRAINE NOS/NOT INTRCBL[ICD9: 346.90] Belia GaribayLUBNA SMayda ORENDER DO [facility] CPT-4: 96059 12/07/2010 OFFICE/OUTPATIENT VISIT EST Diagnosis: PALPITATIONS[ICD9: 785.1] Diagnosis: ANXIETY STATE NOS[ICD9: 300.00] Belia BRUNSON BushraMayda ZACHARYNDER DO [facility] CPT-4: 13331 11/16/2010 OFFICE/OUTPATIENT VISIT EST Diagnosis: URINARY TRACT INFECTION[ICD9: 599.0] Diagnosis: MIGRAINE NOS/NOT INTRCBL[ICD9: 346.90] Iraida GaribayLUBNA S. ORENDER DO [facility] CPT-4: 20963 11/02/2010 OFFICE/OUTPATIENT VISIT EST Diagnosis: ALLERGIC RHINITIS[ICD9: 477.9] Diagnosis: ANXIETY STATE NOS[ICD9: 300.00] Belia BRUNSON SMayda ZACHARYNDER DO [facility] CPT-4: 05516 10/18/2010 OFFICE/OUTPATIENT VISIT EST Belia Shi ZACHARY NDER DO [facility] CPT- 4: 37429 09/19/2010 OFFICE/OUTPATIENT VISIT EST Belia Shi ORE NDER DO [facility] CPT- 4: 96427 09/06/2010 ([id number]) OFFICE/OUTPATIENT VISIT EST Belia CASILLAS PhoenixLUBNA SMayda ORENDER DO [facility] CPT-4: 73401 08/10/2010 ([id number]) OFFICE/OUTPATIENT VISIT EST Belia CASILLAS PhoenixLUBNA SMayda ORENDER DO [facility] CPT-4: 10683 05/11/2010 ([id number]) OFFICE/OUTPATIENT VISIT, EST [facility]ia [facility] CPT-4: 47337 04/06/2010 ([id number]) OFFICE/OUTPATIENT VISIT, RIOS [facility]SU [facility] CPT-4: 46044 02/09/2010 ([id number]) OFFICE/OUTPATIENT VISIT, RIOS HSU [facility] CPT-4: 70281 01/05/2010 ([id number]) OFFICE/OUTPATIENT VISIT, EST Belia HSU [facility] CPT-4: 54492 12/07/2009 ([id number]) OFFICE/OUTPATIENT VISIT, EST Belia HSU [facility] CPT-4: 74611 11/08/2009 ([id number]) OFFICE/OUTPATIENT VISIT, RIOS [facility] CPT-4: 49003 10/24/2009 ([id number]) OFFICE/OUTPATIENT VISIT, EST Belia [facility]SU [facility] CPT-4: 51943 07/25/2009 ([id number]) OFFICE/OUTPATIENT VISIT, RIOS [facility] CPT-4: 27157 05/26/2009 Plan of Care Planned Activity Notes [...] ICD-10 : R10.2 08/04/2019 Appointment: Pattie Sotomayor [address] [place], [place] [id number] ACUTE ILLNESS 08/04/2019 Visit Diagnosis Plan: Inspiratory stridor Discussion: Continue oxygen via NC at 2 L Continue ativan at QID Follow Up: 4 weeks ICD-9 : 786.1 ICD-10 : R06.1 07/06/2019 Visit Diagnosis Plan: Diarrhea Discussion: Restart Col estid at once daily ICD-9 : 787.91 ICD-10 : R19.7 07/06/2019 Appointment: Belia Reid WPtel: [phone] [id number] TELEMEDICINE 07/06/2019 Visit Diagnosis Plan: Left leg [...] R06.00 06/24/2019 Appointment: Belia Reid WPtel: [phone] [facility] TELEMEDICINE 06/24/2019 Visit Diagnosis Plan: Colitis Discussion: Levaquin/Fla gyl Wilson Diet ICD-9 : 558.9 ICD-10 : K52.9 06/16/2019 Visit Diagnosis Plan: Acute bronchitis Discussion: Cov er with levaquin Increase SVNs with albuterol to QID Has oxygen using q HS routinely and prn To ER if oxygen levels drop or worsening respiratory symptoms ICD-9 : 466.0 ICD-10 : J20.9 06/16/2019 Appointment: Belia Reid: [address] [place] [address] TELEMEDICINE 06/16/2019 Patient Education: Patel [employer]ACHARY Kate [phone] [email or web address] Completed 06/16/2019 Visit Diagnosis Plan: Diarrhea Discussion: Vancomycin for 10 days and notify if not improving or worsening BLAND diet Hydrate ICD-9 : 787.91 ICD-10 : R19.7 06/08/2019 Appointment: Belia Reid WPtel: [address] [place] [address] TELEMEDICINE 06/08/2019 Visit Diagnosis Plan: Colitis Discussion: Flagyl plus cipro to cover for both colitis and UTI Notify or to ER if worsening ICD-9 : 558.9 ICD-10 : K52.9 05/26/2019 Visit Diagnosis Plan: Acute febrile illness Discussion : Notify if worsens ICD-9 : 780.60 ICD-10 : R50.9 05/26/2019 Appointment: Belia Reid WPtel: [address] [place] [address] TELEMEDICINE 05/26/2019 Appointment: Pattie Sotomayor [address] RESCHEDULED 05/18/2019 Visit Diagnosis Plan: Chronic obstructive pulmonary di sease, unspecified Discussion: Recommend pulmonary rehab Patient states she never went to pulmonary rehab due to cost as well as transportation issues Finish trelagy Stop singulair Decrease hydroxyzine to 25mg po q HS Fwup [address] scan of Chest results discussed ICD-9 : 496 ICD-10 : J44.9 05/13/2019 Appointment: Belia Reid WPtel: [address] [place] [address] Hospital Follow Up 05/13/2019 Visit Diagnosis Plan: COUGH Discussion: Check CT scan of chest ICD-9 : 786.2 ICD-10 : R05 05/06/2019 Visit Diagnosis Plan: Stridor Discussion: Add Trelagy 1 p daily Add Singulair May need to see new certified court interpreter ICD-9 : 786.1 ICD-10 : R06.1 05/06/2019 Appointment: Belia Reid WPtel: [address] [place] [address] FOLLOW UP 05/06/2019 Patient Education: Singulair- [employer] Coupon [phone] [email or web address] Completed 05/06/2019 Appointment: Belia Reid WPtel: [address] [place] [address] US RESCHEDULED 04/30/2019 Visit Diagnosis Plan: Stridor [...] G25.5 04/29/2019 Appointment: Belia Reid WPtel: [address] [place] [address] Hospital Follow Up 04/29/2019 Patient Education: Valium- [employer] Coupon [phone] https://[email or web address]/resources/getResource/61/[email or web address] Completed 04/29/2019 Visit Diagnosis Plan: Flank pain [...] ICD-10 : R63.5 04/16/2019 Appointment: Pattie Sotomayor [address] [place] [address] ACUTE ILLNESS 04/16/2019 Patient Education: cyclobenzaprine- [employer] Coupon [id number] https://www.[employer]/resources/getResource/61/[email or web address] Completed 04/16/2019 Visit Diagnosis Plan: Migraine, unspecif ied, not intractable, without status migrainosus Discussion: Increase gabapentin to 600mg po BID ICD-9 : 346.90 ICD-10 : G43.909 04/08/2019 Visit Diagnosis Plan: Generalized pruritus Discussion: Hydroxyzine 25mg po TID for itching and anxiety ICD-9 : 698.9 ICD-10 : L29.9 04/08/2019 Appointment: Belia Reid WPtel: [address] [place] [address] ACUTE ILLNESS 04/08/2019 Visit Diagnosis Plan: Cervicalgia [...] : M75.52 01/22/2019 Appointment: Belia Reid WPtel: [address] [place] [address] Hospital Follow Up 01/22/2019 Visit Diagnosis Plan: Abdominal pain Discussion: urine culture sent to assess for any infection. rocephin given in office to cover for pyelonephritis. instructed to push fluids. call office with any new or worsening symptoms. ICD-9 : 789.00 ICD-10 : R10.9 01/07/2019 Appointment: Pattie Sotomayor [address] [place], [place] [address] ACUTE ILLNESS 01/07/2019 Visit Diagnosis Plan: Low back pain Discussion: Stat C T of abdomen/pelvis now ICD-9 : 724.2 ICD-10 : M54.5 12/24/2018 Appointment: Belia Reid WPtel: [address] [place] [address] FOLLOW UP 12/24/2018 Visit Diagnosis Plan: Migraine, [...] : M79.7 11/20/2018 Appointment: Belia Reid WPtel: [address] [place] [address] ACUTE ILLNESS 11/20/2018 Patient Education: baclofen- [employer] Coupon [id number] https://www.[employer] 2000.[employer]/samplemd/resources/getResource/61/[email or web address] Completed 11/20/2018 Visit Diagnosis Plan: Migraine, unspecif ied, intractable, without status migrainosus Discussion: toradol/phenergan given in o ffice (60 mg toradol, 12.5 mg phenergan). instructed to call if no improvement or worsening. instructed to follow up with sales engagement executive since headaches are occurring more frequently to make sure vision is not the cause. ICD-9 : 346.91 ICD-10 : G43.919 11/04/2018 Visit Diagnosis Plan: Acute sinusitis, unspecified Dis cussion: zithromax prescribed to cover for sinus infection due to length of symptoms and clinincal s/s. ICD-9 : 461.9 ICD-10 : J01.90 11/04/2018 Appointment: Pattie Sotomayor [address] [place], [place] [id number] ACUTE ILLNESS 11/04/2018 Appointment: Belia Reid WPtel:[phone] [address] [facility] [facility] CANC[facility]ED 09/24/2018 Visit Diagnosis Plan: Type 2 diabetes me llitus with diabetic neuropathy, unspecified Discussion: Retry gabapentin 300mg po q HS ICD-9 : 250.60 ICD-10 : E11.40 09/18/2018 Visit Diagnosis Plan: Vitamin D deficiency, unspecifie d Discussion: Increase Vitamin D3 to 10,000 u daily ICD-9 : 268.9 ICD-10 : E55.9 09/18/2018 Visit Diagnosis Plan: Encounter for [facility] adult medical examination without abnormal findings [...] I10 09/18/2018 Appointment: Belia Reid WPtel: [address] [facility] Annual Well Visit 09/18/2018 Patient Education: gabapentin- [employer] Coupon [id number] https://www.[employer].com/samplemd/resources/getResource/61/[email or web address] Completed 09/18/2018 Visit Diagnosis Plan: Pain in [...] ICD-10 : M54.89 09/08/2018 Appointment: Pattie Sotomayor [address] [place] [address] ACUTE ILLNESS 09/08/2018 Patient Education: prednisone- [employer] Coupon [id number] https://www.[employer].com/samplemd/resources/getResource/61/[email or web address]-yc Completed 09/08/2018 Visit Diagnosis Plan: Pruritus, unspecified [...] : E10.9 08/20/2018 Appointment: Belia Reid WPtel: [address] [place] [address] ACUTE ILLNESS 08/20/2018 Patient Education: Lexapro- [employer] Coupon [id number] Completed 08/20/2018 Patient Education: hydroxyzine HCl- [employer] Coupon [id number] Completed 08/20/2018 Care Plan: MAMMOGRAM SCREENING LOINC : 2 6347-5 Pending 08/20/2018 Visit Diagnosis Plan: Paroxysmal atrial fibrillation D iscussion: Discuss eliquis need with cardiology at [facility] due to cost ICD-9 : 427.31 ICD-10 : I48.0 06/19/2018 Visit Diagnosis Plan: Hypotension due to drugs Discuss ion: Discussed decreasing cardizem dose due to low BP and edema but sees cardiology next week Follow Up: 1 months ICD-9 : 458.8 ICD-10 : I95.2 06/19/2018 Appointment: Belia Reid WPtel: [facility] FOLLOW UP 06/19/2018 Visit Diagnosis Plan: [...] R61 06/09/2018 Appointment: Belia Reid WPtel: [address] [place], [place] [phone] FOLLOW UP 06/09/2018 Care Plan: CHEST X-RAY 2VW FRONTAL&LATL LOINC : 10428-5 Pending 05/26/2018 Visit Diagnosis Plan: Supraventricular tachycardia [...] : R53.1 05/21/2018 Appointment: Belia Reid WPtel: [address] [place], [place] [address] Hospital Follow Up 05/21/2018 Visit Diagnosis Plan: Cervical disc diso rder with radiculopathy, unspecified cervical region Discussion: Scheduled for surgery on 06/02 10/[address] Faulkner ICD-9 : 722.0 ICD-10 : M50.10 04/16/2018 Appointment: Belia Reid WPtel: [address] [place], [place] [phone] Hospital Follow Up 04/16/2018 Visit Diagnosis Plan: [...] ICD-10 : G43.919 04/01/2018 Appointment: Pattie Sotomayor [address] [place] [address] ACUTE ILLNESS 04/01/2018 Appointment: Belia Reid WPtel: [address] [place] [address] 03/17/2018 Visit Diagnosis Plan: Chronic obstructiv e [...] : E11.65 03/06/2018 Appointment: Belia Reid WPtel: [address] [place] [address] Hospital Follow Up 03/06/2018 Visit Diagnosis Plan: Cervicalgia Discussion: spoke wi th dr. reid about patient. increased gabapentin to bid and started on celebrex bid. tramadrol rx written out to take prn. keep scheduled appt next week for myelogram. ICD-9 : 723.1 ICD-10 : M54.2 02/05/2018 Appointment: Pattie Sotomayor [address] [place] [address] ACUTE ILLNESS 02/05/2018 Care Plan: X-RAY EXAM NECK SPINE 4/5VWS cervical LOINC : 24315-9 Pending 01/21/2018 Visit Diagnosis Plan: Candidiasis of [...] ICD-10 : M54.2 01/20/2018 Appointment: Pattie Sotomayor [address] [place] [address] ACUTE ILLNESS 01/20/2018 Visit Diagnosis Plan: Pain in thoracic spine Discussio n: Proceed with CT scan of thoracic spine Will likely need PT ICD-9 : 724.1 ICD-10 : M54.6 12/25/2017 Appointment: Belia Reid WPtel: [address] [place] [address] US FOLLOW UP 12/25/2017 Care Plan: CT THORAX W/O DYE LOINC : 473 66-0 Pending 12/25/2017 Visit Diagnosis Plan: Pain in thoracic spine Discussio n: Stretches Alternated heat/ice Topical aspercreme with lidocaine Flexeril Recheck 1 week Flu and Pneumovax given ICD-9 : 724.1 ICD-10 : M54.6 12/17/2017 Appointment: Belia Reid WPtel: [address] [place], [place] [phone] ACUTE ILLNESS 12/17/2017 Patient Education: Patient Medication [...] : J44.1 10/30/2017 Appointment: Belia Reid WPtel: [address] [place], [place] [address] FOLLOW UP 10/30/2017 Patient Education: Patient Medication Summary Completed 10/30/2017 Visit Diagnosis Plan: Chronic obstructiv e pulmonary disease with acute lower respiratory infection Discussion: Continue SVNs with albuterol q4hrs Add Trelagy 1 inhalation daily Finish steroids Increase water intake Follow Up: 1 weeks ICD-9 : 496 ICD-10 : J44.0 10/23/2017 Appointment: Belia Reid WPtel: [address] [place], [place] [phone] WORK IN 10/23/2017 Patient Education: Patient Medication Summary Completed 10/23/2017 Appointment: Belia Reid WPtel: [address] [place], [place] [phone] NO SHOW 10/16/2017 Visit Diagnosis Plan: Confusional [...] : E11.65 09/17/2017 Appointment: Belia Reid WPtel: [address] [place], [place] [phone] Annual Well Visit 09/17/2017 Patient Education: Patient Medication Summary Completed 09/17/2017 Appointment: Belia Reid WPtel: [address] [place], [place] [phone] US INJECTION 08/26/2017 Patient Education: Patient Medication Summary Completed 08/26/2017 Appointment: Belia Reidtel: [address] [place], [place] [phone] US CANCELED 07/31/2017 Visit Diagnosis Plan: Encounter [...] ICD-10 : J20.9 07/19/2017 Appointment: Pattie Sotomayor [facility] [address] ACUTE ILLNESS 07/19/2017 Patient Education: Patient Medication Summary Completed 07/19/2017 Care Plan: MAMMOGRAM SCREENING LOINC : 2 6347-5 Pending 07/19/2017 Patient Education: Patient Medication Summary Completed 06/05/2017 Care Plan: LIPID PANEL LOINC : 98398-7 Pending 06/05/2017 Care Plan: A1C HPLC LOINC : 53898-4 Pending 06/05/2017 Visit Diagnosis Plan: Rash and [...] ICD-10 : R21 05/29/2017 Appointment: Pattie Sotomayor [facility] [employer] [id number] FOLLOW UP 05/29/2017 Patient Education: Patient Medication Summary Completed 05/29/2017 Visit Diagnosis Plan: Tinea corporis Discussion: Diflu can and topical nystatin Follow Up: 2 weeks ICD-9 : 110.5 ICD-10 : B35.4 05/07/2017 Visit Diagnosis Plan: Diarrhea, unspecified Discussion : Diflucan Cholestyramine Recheck 2weeks ICD-9 : 787.91 ICD-10 : R19.7 05/07/2017 Appointment: Belia Reidtel: [address] [place], [place] [phone] US FOLLOW UP 05/07/2017 Patient Education: Patient Medication Summary Completed 05/07/2017 Appointment: Belia Reidtel: [address] [place] [address] US RESCHEDULED 04/30/2017 Visit Diagnosis Plan: Chronic obstructiv e pulmonary disease with (acute) exacerbation Discussion: Finish prednisone Continue S VNS with albuterol ICD-9 : 491.21 ICD-10 : J44.1 03/18/2017 Visit Diagnosis Plan: Stridor Discussion: Increase Ati van 0.5mg po to TID routinely for next week then can go back to prn ICD-9 : 786.1 ICD-10 : R06.1 03/18/2017 Appointment: Belia Reid WPtel: [address] [place] [address] ER Follow UP 03/18/2017 Patient Education: Patient [...] ICD-10 : E11.65 02/27/2017 Appointment: Belia Reidtel: [address] [place], [place] [phone] US FOLLOW UP 02/27/2017 Patient Education: Patient [...] ICD-10 : E11.65 02/22/2017 Appointment: Pattie Sotomayor [address] [place], [place] [phone] ACUTE ILLNESS 02/22/2017 Patient Education: [...] : J18.9 01/23/2017 Appointment: Belia Reid WPtel: [address] [place], [place] [phone] ER Follow UP 01/23/2017 Patient Education: Patient Medication Summary Completed 01/23/2017 Appointment: Pattie Sotomayor [address] [place], [place] [phone] CANCELED 01/17/2017 Appointment: Pattie Sotomayor [address] [place], [place] [phone] Annual Well Visit 01/14/2017 Visit Diagnosis Plan: Type 2 diabetes mellitus with hy perglycemia Discussion: Check CMP, HbA1C Flu shot and Prevnar 13 given Follow Up: 3 months ICD-9 : 250.02 ICD-10 : E11.65 12/20/2016 Visit Diagnosis Plan: Localized edema Discussion: Low Na diet Compression socks/Elevate feet ICD-9 : 782.3 ICD-10 : R60.0 12/20/2016 Appointment: Belia Reid WPtel: [facility] [facility] 12/20/2016 Patient Education: Patient [...] : E11.65 09/19/2016 Appointment: Belia Reid WPtel: [facility] 09/18 confirmed`sl FOLLOW UP 09/19/2016 Patient [...] : R10.84 08/20/2016 Appointment: Belia Reid WPtel: [address] [place], [place] [address] 08/16 confirmed~sl FOLLOW UP 08/20/2016 Patient Education: [...] : J44.9 06/19/2016 Appointment: Belia Reid WPtel: [address] [place], [place] [phone] 06/18 confirmed ~ Hospital Follow Up 06/19/2016 [...] Z87.440 06/04/2016 Appointment: Belia Reid WPtel: [address] [place] [address] 06/01 confirmed~sl FOLLOW UP 06/04/2016 Patient Education: [...] : R06.1 05/02/2016 Appointment: Belia Reid WPtel: [address] [place] [address] 05/01 confirmed [facility] Hospital Follow Up 05/02/2016 Patient Education: Patient [...] : N39.0 04/03/2016 Appointment: Belia Reid WPtel: [address] [place] [address] [facility] 04/03/2016 Patient Education: Patient Medication Summary Completed 04/03/2016 Visit Plan: Lungs are clear Her symptoms and exam are all upper airway restriction/constriction Can try supportive care Rx as above Follow up PRN 02/29/2016 Appointment: Lidia Hwang [address] [place] [address] ACUTE ILLNESS 02/29/2016 Patient Education: Patient Medication Summary Completed 02/29/2016 Visit Plan: Toradol/Phenergan today for Migraine Change to Clindamycin to cover lactobacillus for UTI Cover with flagyl due to hx of C. Diff 02/02/2016 Appointment: Belia Reid WPtel: [address] [place] [address] 01/31 confirmed` ACUTE ILLNESS 02/02/2016 Patient Education: Patient Medication Summary Completed 02/02/2016 Visit Plan: Increase neurontin to 300mg q AM and 600mg q PM Discussed neurology re-evaluation Flu shot given Need to check on Pneumonia shot Rx written out for albuterol 01/05/2016 Appointment: Belia Reid WPtel: [address] [place], [place] [phone] 01/03 confirmed ~sl Annual Well Visit 01/05/2016 Patient Education: Patient Medication Summary Completed 01/05/2016 Visit Plan: Cipro Culture urine hydrate Flexeril refilled Alternate heat and ice for back Increase gabapentin to 300mg po BID Notify if worsens 12/05/2015 Appointment: Belia Reid WPtel: [facility] 11/30 confirmed~sl ACUTE ILLNESS 12/05/2015 Patient Education: Patient Medication Summary Completed 12/05/2015 Patient Education: Patient Medication Summary Completed 10/27/2015 Care Plan: COMPREHEN METABOL[place] : 16645-1 Pending 10/27/2015 Care Plan: A1C HPLC LOINC : 13814-0 Pending 10/27/2015 Visit Plan: Lungs are CTA today and is f eeling improved overall Finish meds as ordered Continue inhalers and neb treatments Discussed migraine treatment options She does not feel she needs anything additional added today Refill of Januvia sent since no samples are available today 10/26/2015 Appointment: Lidia Hwang [address] Hospital Follow Up 10/26/2015 Appointment: Lidia Hwang [address] [facility]66[facility] CANCELED 10/26/2015 Patient Education: Patient Medication Summary Completed 10/26/2015 Patient Education: Januvia - 18+ - KENNETH - No [place] Completed 10/26/2015 Visit Plan: Office dip still abnormal Cu lture pending Switch to cipro - stop macrobid Push fluids - avoid caffeine Will call with culture results when available Follow up if worsening 10/05/2015 Appointment: Lidia Hwang [address] ER Follow UP 10/05/2015 Patient Education: Patient Medication Summary Completed 10/05/2015 Visit Plan: Proceed with PT for document ation of ROM and strength of all extremities Proceed with Power Mobility Device Trial of neurontin 300mg q HS--lyrica helped but patient unable to afford Recheck 1month 09/15/2015 Appointment: Belia Reid [facility]Ptel: [facility] [facility] 09/13 confirmed~sl SPECIAL 09/15/2015 Patient Education: Patient Medication Summary Completed 09/15/2015 Visit Plan: Fille out Loan Discharge Pap erwork for total and permanent disability 08/25/2015 Patient Education: Patient Medication Summary Completed 08/25/2015 Visit Plan: Discussed with Dr Anushka Haywood at [facility] of head Will get last date of carotid doppler from 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 director of business operations and update if needed 08/24/2015 Appointment: [facility] 08/22 confirmed~sl ACUTE ILLNESS 08/24/2015 Patient Education: Patient Medication Summary Completed 08/24/2015 Patient Education: Patient Medication Summary Completed 08/24/2015 Care Plan: US EXAM OF HEAD AND NECK carotid Ultrasound LOIN C : 10206-7 Pending 08/24/2015 Visit Plan: Long discussion about diet A ccuchecks daily Check HbA1C, CMP Change requip to mirapex 07/05/2015 Appointment: Belia Reid WPtel: [address] [facility] 07/03 confirmed ~sl FOLLOW UP 07/05/2015 Patient Education: Patient Medication Summary Completed 07/05/2015 Visit Plan: Add Breo ellipta 100 1 p BID Continue SVNs with duoneb QID 06/06/2015 Appointment: Belia Reid WPtel: [address] [place], [place] [phone] Patient is calling for a ride, then [...] not improving 05/23/2015 Appointment: Huong Osborne WPtel: [address] [place] [address] ACUTE ILLNESS 05/23/2015 Appointment: Lidia Hwang [address] [place] [address] ER Follow UP 05/23/2015 Patient Education: Patient Medication Summary Completed 05/23/2015 Visit Plan: Check pancreatic enzymes and US of pancreas as patient can't understand why she has diabetes since has no family history Discussed weight, diet, exercise all play an important role in diabetes and are risk factors as well Continue Januvia and accuchecks daily 05/05/2015 Appointment: Belia Reid WPtel: [address] [place] [address] US FOLLOW UP 05/05/2015 Patient Education: Patient Medication Summary Completed 05/05/2015 Care Plan: US EXAM ABDOM COMPLETE LOINC : 66785-3 Ordered 05/05/2015 Visit Plan: Start Januvia 100mg daily [place] with diflucan and culture urine Accuchecks daily alternating times Recheck 6weeks 03/30/2015 Appointment: Belia Reid WPtel: [address] [place] [address] 03/29 confirmed~lb FOLLOW UP 03/30/2015 Patient Education: Patient Medication Summary Completed 03/30/2015 Appointment: Beila Reid WPtel: [address] [place], [place] [phone] [place] 03/01 needs reschedule due to payment and insurance ~sl FOLLOW UP 03/02/2015 Visit Plan: Patient was just in ER last night so has not filled scripts yet Start Carafate and Flagyl and Cipro Add Hyophen 1 po BID Recheck 1mo 02/03/2015 Appointment: Belia Reid WPtel: [address] [place], [place] [phone] 02/02lm ~sl...02/03/15 appt confirmed cn ACUTE I LLNESS 02/03/2015 Patient Education: Patient Medication Summary Completed 02/03/2015 Visit Plan: Warm soaks to vaginal area K elex and Diflucan and observe Zofran to use prn 12/29/2014 Appointment: Belia Reid WPtel: [address] [place] [address] 12/28 Confirmed ~ ACUTE ILLNESS 12/29/2014 Patient Education: Patient Medication Summary Completed 12/29/2014 Appointment: Huong Osborne WPtel: [address] [place], [place] [phone] FOLLOW UP 09/24/2014 Appointment: Belia Reid WPtel: [address] [place] [address] 09/15 confirmed - FOLLOW UP 09/16/2014 Visit Plan: Increase requip to 2mg po BI D Increase lyrica to 225mg total a day by adding an extra 75mg in AM Recheck in 2weeks Continue to patch left eye while sleeping 09/02/2014 Appointment: Belia Reid WPtel: [address] [place], [place] [phone] 09/01 appt confirmed [facility] Follow Up 09/02 Patient Education: Patient Medication Summary Completed 09/02/2014 Visit Plan: To [facility] for observat ion to R/O CVA 08/25/2014 Appointment: Huong Osborne WPtel: [address] [place], [place] [phone] ACUTE ILLNESS 08/25/2014 Patient Education: Patient Medication Summary Completed 08/25/2014 Referral: Aaron Jonas WPtel: [facility] [address] [place] location Initiated 04/26/2014 Referral: Brian Srinivasan [facility]Ptel[facility] Initiated 04/20/2014 Appointment: Belia Reid WPtel: [address] [place], [place] [address] ER Follow UP 04/01/2014 Patient Education: Patient Medication Summary Completed 04/01/2014 Care Plan: MYELOGRAPHY NECK SPINE LOINC : 84615-5 Ordered 04/01/2014 Visit Plan: Continue Symbicort 160 at 2p BID Continue SVNs with duoneb at least QID Finish Levaquin Recheck 1mo on lyrica 03/16/2014 Appointment: Belia Reid WPtel: [address] [place], [place] [phone] 03/15 voicemail FOLLOW UP 03/16/2014 Patient Education: Patient Medication Summary Completed 03/16/2014 Visit Plan: Restart SVNs with duoneb QID Repeat prednisone Levaquin Continue symbicort Keep lyrica at same dose Recheck 1week 03/09/2014 Appointment: Belia Reid WPtel: [address] [place], [place] [phone] FOLLOW UP 03/09/2014 Patient Education: Patient Medication Summary Completed 03/09/2014 Appointment: Belia Reid WPtel: [address] [place], [place] [phone] 03/03 showed up 15 minutes late for appt -- put her on Huong's side for 10:45am FORGIVEN PER DR FOLLOW UP 03/03/2014 Appointment: Huong Osborne WPtel: [address] [place], [place] [address] [place] FOLLOW UP 03/03/2014 Patient Education: Patient Medication Summary Completed 03/03/2014 Appointment: Huong Osborne WPtel: [address] [place], [place] [phone] ER Follow UP 03/01/2014 Patient Education: Patient Medication Summary Completed 03/01/2014 Visit Plan: Add carafate for this next m onth Increase lyrica to 150mg q HS 02/09/2014 Appointment: Belia Reid WPtel: [address] [place], [place] [phone] Hospital Follow Up 02/09/2014 Patient Education: Patient Medication Summary Completed 02/09/2014 Visit Plan: Increase omeprazole back to 40mg po BID Use requip in AM and add lyrica 75mg q HS Recheck 1mo 12/23/2013 Appointment: Belia Reid WPtel: [address] [place], [place] [phone] FOLLOW UP 12/23/2013 Patient Education: Patient Medication Summary Completed 12/23/2013 Patient Education: Patient Medication Summary Completed 12/04/2013 Appointment: Belia Reid WPtel: [address] [place], [place] [phone] UA 10/30/2013 Patient Education: Patient Medication Summary Completed 10/30/2013 Appointment: Belia Reid WPtel: [address] [place], [place] [phone] 10/21/2013 Patient Education: Patient Medication Summary Completed 10/21/2013 Visit Plan: Cryotherapy as above TAC and hydroxyzine to use prn to itching spots and itching SKs Add Advair HFA 115/21 1 p BID 10/05/2013 Appointment: Belia Reid WPtel: [address] [place], [place] [phone] 10/01 pt called and confirmed ACUTE ILLNESS Patient Education: Patient Medication Summary Completed 10/05/2013 Appointment: Belia Reid WPtel: [address] [place], [place] [phone] will pay copay and part of past balance FOLLOW U P 08/04/2013 Patient Education: Patient Medication Summary Completed 08/04/2013 Appointment: Belia Reid WPtel: [address] [place], [place] [phone] US INJECTION 07/13/2013 Patient Education: Patient Medication Summary Completed 07/13/2013 Appointment: Huong Osborne WPtel: [address] [place], [place] [phone] ACUTE ILLNESS 07/03/2013 Patient Education: Patient Medication Summary Completed 07/03/2013 Visit Plan: Cipro and culture urine 05/27/2013 Appointment: Huong Osborne WPtel: [address] [place], [place] [address] 05/26 confirmed appt and notified that balance and endoscopy technican y is due at appt time FOLLOW UP 05/27/2013 Patient Education: Patient Medication Summary Completed 05/27/2013 Appointment: Belia Reid WPtel: [address] [place], [place] [phone] US UA 05/25/2013 Patient Education: Patient Medication Summary Completed 05/25/2013 Appointment: Belia Reid WPtel: [address] [place], [place] [phone] US INJECTION 05/04/2013 Patient Education: Patient Medication Summary Completed 05/04/2013 Appointment: Belia Reid WPtel: [address] [place], [place] [phone] US INJECTION 04/17/2013 Patient Education: Patient Medication Summary Completed 04/17/2013 Appointment: Belia Ried WPtel: [address] [place], [place] [phone] US INJECTION 04/15/2013 Appointment: Belia Reid WPtel: [address] [place], [place] [phone] 04/02 FOLLOW UP 04/06/2013 Patient Education: Patient Medication Summary Completed 04/06/2013 Visit Plan: Obtain lab results including UA from [facility] 11/10/2012 Appointment: Belia Reid WPtel: [address] [place], [place] [phone] [place] ER Follow UP 11/10/2012 Patient Education: Patient Medication Summary Completed 11/10/2012 Appointment: Belia Reid WPtel: [address] [place] [address] 10/30/12 patient canceled appt due to fin ances. Offered to work something out, patient declined-LB FOLLOW UP 11/05/2012 Visit Plan: Continue Bystolic at current dose Pt has fwup with Neurology on September 16 09/02/2012 Appointment: Belia Reid WPtel: [address] [place] [address] FOLLOW UP 09/02/2012 Patient Education: Patient Medication Summary Completed 09/02/2012 Visit Plan: Continue bystolic at 5mg chris ly Sees Neurology tomorrow Use oxygen at bedtime 08/04/2012 Appointment: Belia Reidtel: [address] [place] [address] FOLLOW UP 08/04/2012 Patient Education: Patient Medication Summary Completed 08/04/2012 Appointment: Belia Reid WPtel: [address] [place] [address] Hospital fwup for 07/21/12. merged appointments FOLLOW UP 07/24/2012 Visit Plan: Start Bystolic 5mg daily for tachycardia Fwup with neurology for further workup Overnight O2 sat 07/21/2012 Appointment: Belia Reidtel: [address] [place] [address] Hospital Follow Up 07/21/2012 Patient Education: Patient Medication Summary Completed 07/21/2012 Visit Plan: SVN with Albuterol QID Add A velox 400mg daily Notify if worsens or persists 07/02/2012 Appointment: Belia Reid WPtel: [address] [place] [address] ACUTE ILLNESS 07/02/2012 Patient Education: Patient Medication Summary Completed 07/02/2012 Appointment: Belia Reidtel: [address] [place] [address] INJECTION 06/25/2012 Patient Education: Patient Medication Summary Completed 06/25/2012 [facility]ment[facility] [address] [id number] [facility] 06/24/2012 Patient Education: Patient Medication Summary Completed 06/24/2012 Appointment: Belia Reid WPtel: [address] [place], [place] [id number] 05/19 left message FOLLOW UP 05/20/2012 Patient [...] po TID 05/08/2012 Appointment: Bel[facility] Reid [facility]el[id number] [facility] 05/08/2012 Patient Education: Patient Medication Summary Completed 05/08/2012 Visit Plan: Continue current meds Contin ue lower dose on pain meds and Diazepam Still waiting on paperwork for botox for Migraines Will restart Neurontin at 600mg po q HS Pt going to stop Depakote due to can't afford 04/22/2012 Appointment: Belia Reid WPtel: [address] [place], [place] [id number] 04/21 Hospital Follow Up 04/22/2012 Patient Education: Patient Medication Summary Completed 04/22/2012 Visit Plan: Injection to shoulder as abo ve Continue current meds Has appointment with neurology on HAs in 02/13/2012 Appointment: Belia Reid WPtel: [address] [place], [place] [id number] Pt does not have $10 copay at [facility] t time - will bring it in next week. Kianna iqbal'ed this. - [place] FOLLOW UP 02/13/2012 Patient Education: Patient Medication Summary Completed 02/13/2012 Visit Plan: Proceed with headache specia list Change nexium to Protonix Phenergan to use prn Sumatriptan to use prn Pt still on Inderal 01/28/2012 Appointment: Belia Reid WPtel: [address] [place] [address] ER Follow UP 01/28/2012 Patient Education: Patient [...] for sleep 12/26/2011 Appointment: Belia Reid WPtel: [address] [place] [address] 12/24- appt. confirmed FOLLOW UP 2 Patient Education: Patient Medication Summary Completed 12/26/2011 Appointment: Belia Reid WPtel: [address] [place] [address] [place] FOLLOW UP 11/14/2011 Patient Education: Patient Medication Summary Completed 11/14/2011 Appointment: Belia Reidtel: [address] [place] [address] [place] FOLLOW UP 09/12/2011 Patient Education: Patient Medication Summary Completed 09/12/2011 Visit Plan: Supportive care Decrease Liseth catalino to 50mg q HS Decrease AM dose of Valium to 5mg q HS Use Endocet sparingly 08/15/2011 Appointment: Belia Reid WPtel: [address] [place] [address] ER Follow UP 08/15/2011 Patient Education: Patient Medication Summary Completed 08/15/2011 Appointment: Belia Reid WPtel: [address] [place] [address] [place] Spoke directly to patient yesterday and confirmed the appoin tment. cn ACUTE ILLNESS 08/09/2011 Patient Education: Patient Medication Summary Completed 08/09/2011 Appointment: Belia Reid WPtel: [address] [place] [address] Hospital Follow Up 07/03/2011 Patient Education: Patient Medication Summary Completed 07/03/2011 Appointment: Belia Reid WPtel: [address] [place] [address] FOLLOW UP 06/04/2011 Patient Education: Patient Medication Summary Completed 06/04/2011 Visit Plan: Pt. wants "allergy shot" but in fact wants steroid shot. [facility] take a break [facility] and try Singulair for 2 weeks. 05/03/2011 Appointment: Iraida Jones WPtel: [address] [place] [address] ACUTE ILLNESS 05/03/2011 Patient Education: Patient Medication Summary Completed 05/03/2011 Visit Plan: Neurontin 400mg q HS for 1we ek then 800mg q HS Decrease requip to 1mg q HS for 2wks then stop Fwup 2mos 04/05/2011 Appointment: Belia Reid WPtel: [address] [place] [address] FOLLOW UP 04/05/2011 Patient Education: Patient Medication Summary Completed 04/05/2011 Visit Plan: Trial of neurontin in 2wks C ontinue current meds for stomach Pt has procedure with Dr. Ortiz next week for stone removal 03/08/2011 Appointment: Belia Reid WPtel: [address] [place] [address] Hospital Follow Up 03/08/2011 Patient Education: Patient Medication Summary Completed 03/08/2011 Appointment: eBlia Reid WPtel: [address] [place] [address] FOLLOW UP 02/19/2011 Visit Plan: reports increased [...] with Flagyl 01/24/2011 Appointment: Iraida Jones WPtel: [address] [place] [address] ACUTE ILLNESS 01/24/2011 Patient Education: Patient Medication Summary Completed 01/24/2011 Appointment: Belia Reid WPtel: [address] [place] [address] [place] FOLLOW UP 01/02/2011 Patient Education: Patient Medication Summary Completed 01/02/2011 Appointment: Belia Reid WPtel: [address] [place] [address] FOLLOW UP 12/12/2010 Appointment: Belia Reid WPtel: [address] [place] [address] ACUTE ILLNESS 12/07/2010 Patient Education: Patient Medication Summary Completed 12/07/2010 Visit Plan: Increase Buspar to 10mg po B ID 11/16/2010 Appointment: Belia Reid WPtel: [address] [place] [address] FOLLOW UP 11/16/2010 Patient Education: Patient Medication Summary Completed 11/16/2010 Appointment: Iraida Jones WPtel: [address] [place] [address] ER Follow UP 11/02/2010 Patient Education: Patient Medication Summary Completed 11/02/2010 Visit Plan: Depo-Medrol/Kenalog given fo r allergies Add BuSpar for anxiety Oxycodone one p.o. q.i.d. for number 120 refilled 10/18/2010 Appointment: Belia Reid WPtel: [address] [place] [address] [place] FOLLOW UP 10/18/2010 Patient Education: Patient Medication Summary Completed 10/18/2010 Visit Plan: Continue current meds Discus sed epidurals for back vs PT--will proceed with epidurals to thoracolumbar region to see if helps with pain 09/19/2010 Appointment: Belia Reid WPtel: [address] [place], [place] [id number] FOLLOW UP 09/19/2010 Patient Education: Patient Medication Summary Completed 09/19/2010 Visit Plan: DC MS contin Check CT scan t horacic spine Fwup pending above results 09/06/2010 Appointment: Belia Reid WPtel: [address] [place], [place] [id number] FOLLOW UP 09/06/2010 Patient Education: Patient Medication Summary Completed 09/06/2010 Visit Plan: Continue current meds Restar t MS contin 15mg po BID and use oxycodone prn Use daily senokot-s 2 po BID 08/10/2010 Appointment: Belia Reid WPtel: [address] [place], [place] [id number] FOLLOW UP 08/10/2010 Patient Education: Patient Medication Summary Completed 08/10/2010 Visit Plan: Depomedrol/Kenalog given Pt sees ENT later this month Cont current meds Mammo scheduled 05/11/2010 Appointment: Belia Reid WPtel: [address] [place], [place] [id number] FOLLOW UP 05/11/2010 Patient Education: Patient Medication Summary Completed 05/11/2010 Appointment: Belia Reid WPtel: [address] [place], [place] [id number] UA 05/04/2010 Patient Education: Patient Medication Summary Completed 05/04/2010 Visit Plan: Pt sent to lab for UA 04/28/2010 Appointment: Belia Reid WPtel: [address] [place], [place] [phone] UA 04/28/2010 Patient Education: Patient Medication Summary Completed 04/28/2010 Visit Plan: Check CT angiogram of chest Restart Advair Use proair prn Cont current meds Fwup with Card as schedulec 04/06/2010 Appointment: Belia Reidtel: [address] [place] [address] Follow Up 04/06/2010 Patient Education: Patient Medication Summary Completed 04/06/2010 Visit Plan: Paperwork filled out for pow erchair Depomedrol/kenalog given Pt sees ENT in 2wks to assess nasal obstruction problems 02/09/2010 Appointment: Belia Reid WPtel: [address] [place] [address] ESTABLISHED PATIENT 02/09/2010 Patient Education: Patient Medication Summary Completed 02/09/2010 Visit Plan: Change Elavil to Trazadone 1 50mg q HS Diflucan and nystatin for tinea cruris 01/05/2010 Appointment: Belia Reidtel: [address] [place] [address] FOLLOW UP 01/05/2010 Patient Education: Patient Medication Summary Completed 01/05/2010 Appointment: Belia Reidtel: [address] [place] [address] FOLLOW UP 12/07/2009 Patient Education: Patient Medication Summary Completed 12/07/2009 Appointment: Belia Reidtel: [address] [place] [address] FOLLOW UP 11/22/2009 Visit Plan: Cont current meds and await MRI results from Dr. Meadows's office and his final recommendations Will need to follow-up at later date on deviated septum 11/08/2009 Appointment: Belia Reidtel: [address] [place] [address] FOLLOW UP 11/08/2009 Patient Education: Patient Medication Summary Completed 11/08/2009 Visit Plan: Cont PT/OT See Neurosurgery Cont Tortoise shell brace 10/24/2009 Appointment: Belia Reidtel: [address] [place], [place] [phone] FOLLOW UP 10/24/2009 Patient Education: Patient Medication Summary Completed 10/24/2009 Appointment: Beila Reid WPtel: [address] [place], [place] [id number] Hospital Follow Up 10/17/2009 Appointment: Belia Reid WPtel: [address] [place], [place] [id number] ACUTE ILLNESS 07/25/2009 Patient Education: Patient Medication Summary Completed 07/25/2009 Appointment: Belia Reid WPtel: [address] [place] [address] FOLLOW UP 05/26/2009 Patient Education: Patient Medication Summary Completed 05/26/2009 Referral: Chino Balderas WPtel: [address] [place], [place] [id number] Referral Initiated Referral: Merry Vale WPtel: [facility] [id number] [place] Dr Vale will review referral and book appointment Completed Referral: Francisco Javier Yoder WPtel: [address] [id number] Patient needs EGD insurance will not inc rease a medication unless this procedure results show a need Completed Referral: Francisco Javier Yoder WPtel: [address] [id number] [place] Referral Historical Reference Referral: Francisco Javier Yoder WPtel: [address] [place] [address] [place] Referral Initiated Instructions Comment . 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 Long discussion [...] from "generic Zyrtec they are getting from [employer]" and try Singulair for 2 weeks. . [...]
--- OUTSIDE RECORDS SUMMARY | 2019-08-27 08:11 | XMS REPORT | CCD ---
Author Author Diana Reid D.O. Organization [facility] Address [address] [place] [address] Phone Care Team Providers Care Wet Process Operator Name Role Phone Belia Reid D.O., PP Unavailable CCM Unavailable Summary Purpose Interface Exchange Insurance Providers Payer name Policy type / Coverage type Covered green party ID Effective Begin Date Effective End Date [employer] MEDICARE Medicare Part B [id number] 2019 Unknown Family History Family History data not found Social History Social History Element Codes Description Effective Dates Tobacco history SNOMED CT: 550621955 Nonsmoker 09/13/2010 Allergies, Adverse Reactions, Alerts Substance Reaction Codes Entered Date Inactivated Date Status Eggs reaction [id number] 09/15/2015 No Inactive Date Active _ Unknown 01/07/2019 No Inactive Date Active PENICILLINS Unknown 01/07/2019 No Inactive Date Active SULFA (SULFONAMIDES) rash Unknown 11/02/2010 No Inactive Mike e Active Problems Condition Codes Effective Dates Condition Status Diarrhea ICD-9: 787.91 ICD-10: R19.7 06/24/2012 Active Inspiratory stridor ICD-9: 786.1 ICD-10: R06.1 05/02/2016 Active Dyspnea ICD-9: 786.09 ICD-10: R06.00 06/24/2019 [...] Fill Instructions Ativan 0.5 mg tablet RxNorm: 151101 1 Tablet(s) Oral th ree times a day for anxiety/shortness of air/stridor 07/29/2019 08/27/2019 Active Singulair 10 mg tablet RxNorm: 239721 1 Tablet(s) Oral QPM 07/29/19 20 01/25/2020 Active diltiazem CD 240 mg capsule,extended release 24 hr RxNorm: 8 82567 1 Capsule(s) Oral QD 07/15/2019 01/10/2020 Active metoprolol tartrate 50 mg tablet RxNorm: 231829 1 Table t(s) Oral two times a day 07/06/2019 No Stop Date Active Novolin N NPH U-100 Insulin isophane 100 unit/mL subcu taneous susp RxNorm: 957573 25 Unit(s) Subcutaneous two times a day 07/06/2019 07/06/2019 I nactive Colestid 1 gram tablet RxNorm: 6411171 1 Tablet(s) Oral two times a day for diarrhea 07/06/2019 09/04/2019 Active pramipexole 1 mg tablet RxNorm: 569672 1 Tablet(s) Oral QPM FOR RESTLESS LEGS (REPLACES REQUIP) 06/25/2019 06/19/2020 Active hydroxyzine HCl 25 mg tablet RxNorm: 551421 1 Tablet(s) Oral QPM for itching/aniety 06/25/2019 09/23/2019 Active Ativan 0.5 mg tablet RxNorm: 810348 1 Tablet(s) Oral th ree times a day for anxiety/shortness of air/stridor 06/25/2019 07/25/2019 Inactive Levaquin 500 mg tablet RxNorm: 737546 1 Tablet(s) Oral QD 06/16/2019 06/23/2019 Inactive Flagyl 500 mg tablet RxNorm: 803182 1 Tablet(s) Oral three time s a day 06/16/2019 06/23/2019 Inactive Vancocin 125 mg capsule RxNorm: 663174 1 Capsule(s) Oral four t imes a day 06/08/2019 06/18/2019 Inactive omeprazole 40 mg capsule,delayed release RxNorm: 326425 1 Capsule(s) Oral two times a day 05/26/2019 11/21/2019 Active Flagyl 500 mg tablet RxNorm: 235653 1 Tablet(s) Oral three time s a day 05/26/2019 06/05/2019 Inactive diltiazem CD 240 mg capsule,extended release 24 hr RxNorm: 8 27311 1 Capsule(s) Oral QD 05/26/2019 07/14/2019 Inactive Cipro 250 mg tablet RxNorm: 105049 1 Tablet(s) Oral two times a day 05/26/2019 06/02/2019 Inactive hydroxyzine HCl 25 mg tablet RxNorm: 630737 1 Tablet(s) Oral QPM for itching/aniety 05/21/2019 06/24/2019 Inactive metoprolol tartrate 25 mg tablet RxNorm: 362219 1 Table t(s) Oral two times a day 05/21/2019 07/05/2019 Inactive hydroxyzine HCl 25 mg tablet RxNorm: 010503 1 Tablet(s) Oral QPM for itching/aniety 05/13/2019 05/20/2019 Inactive Singulair 10 mg tablet RxNorm: 276806 1 Tablet(s) Oral QPM 05/06/19 20 05/12/2019 Inactive gabapentin 600 mg tablet RxNorm: 763699 1 Tablet(s) Oral QD 020 06/05/2019 Inactive Valium 5 mg tablet RxNorm: 970059 1 Tablet(s) Oral QPM for stri joao/muscle spasm 04/29/2019 06/24/2019 Inactive baclofen 10 mg tablet RxNorm: 090214 1 Tablet(s) Oral QPM for s pasm/neck pain 04/24/2019 05/23/2019 Inactive baclofen 10 mg tablet RxNorm: 351133 1 Tablet(s) Oral QPM for s pasm/neck pain 04/24/2019 04/23/2019 Inactive Novolin N NPH U-100 Insulin isophane 100 unit/mL subcu taneous susp RxNorm: 266574 23 Unit(s) Subcutaneous two times a day 04/20/2019 07/05/2019 I nactive cyclobenzaprine 5 mg tablet RxNorm: 821940 1 Tablet(s) Oral three times a day as needed 04/16/2019 04/23/2019 Inactive hydroxyzine HCl 25 mg tablet RxNorm: 154558 1 Tablet(s) Oral three times a day for itching/aniety 04/08/2019 05/12/2019 Inactive gabapentin 600 mg tablet RxNorm: 648450 1 Tablet(s) Oral two ti mes a day 04/08/2019 05/05/2019 Inactive gabapentin 600 mg tablet RxNorm: 279493 1 Tablet(s) Oral two ti mes a day 04/08/2019 04/07/2019 Inactive Novolin N NPH U-100 Insulin isophane 100 unit/mL subcu taneous susp RxNorm: 104147 10 Unit(s) Subcutaneous two times a day 03/03/2019 04/19/2019 I nactive gabapentin 300 mg capsule RxNorm: 066477 1 Capsule(s) O ral every night at bedtime for neuropathy 02/26/2019 04/07/2019 Inactive gabapentin 300 mg capsule RxNorm: 294346 1 Capsule(s) O ral every night at bedtime for neuropathy 02/20/2019 02/25/2019 Inactive buspirone 5 mg tablet RxNorm: 875820 TAKE 1 TABLET THREE TIMES MILDRED Y 02/12/2019 05/12/2019 Inactive pramipexole 1 mg tablet RxNorm: 006676 1 Tablet(s) Oral QPM FOR RESTLESS LEGS (REPLACES REQUIP) 02/12/2019 06/24/2019 Inactive Lexapro 10 mg tablet RxNorm: 047157 TAKE 1 TABLET EVERY DAY FOR MOO D 01/31/2019 No Stop Date Active Ativan 0.5 mg tablet RxNorm: 171815 TAKE 1 TABLET BY MO UTH THREE TIMES DAILY NEEDED FOR ANXIETY 01/26/2019 04/28/2019 Inactive Ativan 0.5 mg tablet RxNorm: 894170 TAKE 1 TABLET BY MO UTH THREE TIMES DAILY NEEDED FOR ANXIETY 01/05/2019 01/05/2019 Inactive Levaquin 500 mg tablet RxNorm: 100386 1 Tablet(s) Oral QD 12/25/2018 12/24/2018 Inactive Levaquin 500 mg tablet RxNorm: 175535 1 Tablet(s) Oral QD 12/25/2018 01/04/2019 Inactive baclofen 10 mg tablet RxNorm: 858245 1 Tablet(s) Oral three maico es a day 11/20/2018 01/19/2019 Inactive Ativan 0.5 mg tablet RxNorm: 252759 TAKE 1 TABLET BY MO UTH THREE TIMES DAILY NEEDED FOR ANXIETY 11/20/2018 01/04/2019 Inactive gabapentin 300 mg capsule RxNorm: 876927 1 Capsule(s) O ral every night at bedtime for neuropathy 11/20/2018 12/20/2018 Inactive Lexapro 10 mg tablet RxNorm: 386414 1 Tablet(s) PO QD for mood 07/201801/30/2019 Inactive Zithromax Z-Lj 250 mg tablet RxNorm: 834376 Tablet(s) PO take as directed 11/04/2018 11/19/2018 Inactive Insulin Syringe 1 mL 29 gauge x 1/2" RxNorm: 2 s yringes daily with insulin Dx: E11.65 10/08/2018 No Stop Date Active gabapentin 300 mg capsule RxNorm: 313148 1 Capsule(s) PO QHS fo r neuropathy 09/18/2018 10/17/2018 Inactive cyclobenzaprine 5 mg tablet RxNorm: 577752 1 Tablet(s) PO TID a s needed 09/09/2018 09/08/2018 Inactive cyclobenzaprine 5 mg tablet RxNorm: 505320 1 Tablet(s) PO TID a s needed 09/09/2018 10/08/2018 Inactive prednisone 20 mg tablet RxNorm: 617833 1 Tablet(s) PO QD 09/08/2018 0 09/12/2018 Inactive Lantus Solostar U-100 Insulin 100 unit/mL (3 mL) subcu taneous pen RxNorm: 382302 55 Unit(s) SQ QAM 08/28/2018 11/03/2018 Inactive hydroxyzine HCl 25 mg tablet RxNorm: 661144 1 Tablet(s) PO QHS for itching 08/20/2018 05/12/2019 Inactive Lexapro 10 mg tablet RxNorm: 628932 1 Tablet(s) PO QD for mood 08/0210/18/2018 Inactive sumatriptan 100 mg tablet RxNorm: 598210 1 Tablet(s) PO at headache onset. May repeat 1 in two hours if headache remains. Max of 2 per 24 hours 04/02/2018 05/20/2018 Inactive Diflucan 150 mg tablet RxNorm: 242558 1 Tablet(s) PO QD 03/18/2018 Inactive Diflucan 150 mg tablet RxNorm: 595992 1 Tablet(s) PO QD 03/18/2018 Inactive Flagyl 500 mg tablet RxNorm: 947034 1 Tablet(s) PO TID 03/17/2018 Inactive Levaquin 500 mg tablet RxNorm: 222833 1 Tablet(s) PO QD 03/17/2018 Inactive Levaquin 500 mg tablet RxNorm: 442350 1 Tablet(s) PO QD 03/17/2018 Inactive Flagyl 500 mg tablet RxNorm: 237408 1 Tablet(s) PO TID 03/17/2018 Inactive ketoconazole 200 mg tablet RxNorm: 994621 1 Tablet(s) PO QD 019 03/19/2018 Inactive Celebrex 200 mg capsule RxNorm: 978219 1 Capsule(s) PO BID 02/06/20 18 05/20/2018 Inactive tramadol 50 mg tablet RxNorm: 501837 1 Tablet(s) PO TID as needed 1 04/08/2017 05/20/2018 Inactive gabapentin 300 mg capsule RxNorm: 624067 1 Capsule(s) PO BID 201705/20/2018 Inactive Diflucan 150 mg tablet RxNorm: 055153 1 Tablet(s) PO QD 01/20/2018 Inactive pramipexole 1 mg tablet RxNorm: 692347 1 Tablet(s) PO Q PM FOR RESTLESS LEGS (REPLACES REQUIP) 01/08/2018 02/11/2019 Inactive cyclobenzaprine 10 mg tablet RxNorm: 917618 1 Tablet(s) PO TID as needed for muscle spasm 12/17/2017 05/20/2018 Inactive pramipexole 1 mg tablet RxNorm: 820684 TAKE 1 TABLET BY MOUTH ONCE DAILY IN THE EVENING FOR RESTLESS LEGS (REPLACES REQUIP) 12/04/2017 01/05/2018 Inac tive Amaryl 4 mg tablet RxNorm: 526102 1 Tablet(s) PO BID replaces 2mg 0 11/05/2017 12/16/2017 Inactive Singulair 10 mg tablet RxNorm: 907674 1 Tablet(s) PO QHS for al lergies/lungs 10/30/2017 12/16/2017 Inactive Diflucan 100 mg tablet RxNorm: 714042 1 Tablet(s) PO QD 10/23/2017 Inactive Ativan 0.5 mg tablet RxNorm: 267173 TAKE 1 TABLET BY MOUTH THRE E TIMES DAILY 08/30/2017 11/20/2018 Inactive buspirone 5 mg tablet RxNorm: 231728 1 Tablet(s) PO TID 07/11/2017 Inactive propranolol 60 mg tablet RxNorm: 927947 1 Tablet(s) PO BID repl aces 40mg dose 06/26/2017 12/16/2017 Inactive Amaryl 4 mg tablet RxNorm: 847526 1 Tablet(s) PO BID replaces 2mg 0 06/12/2017 11/05/2017 Inactive omeprazole 40 mg capsule,delayed release RxNorm: 749624 1 Capsule(s) PO BID TAKE ONE CAPSULE BY MOUTH TWICE DAILY 05/30/2017 11/25/2017 Inactive pramipexole 1 mg tablet RxNorm: 935506 1 Tablet(s) PO Q PM for restless legs--replaces requip 05/30/2017 11/25/2017 Inactive amitriptyline 50 mg tablet RxNorm: 716720 1 Tablet(s) PO QHS 201709/16/2017 Inactive Diflucan 100 mg tablet RxNorm: 833184 1 Tablet(s) PO BID 05/07/2017 0 05/20/2017 Inactive nystatin (bulk) 100 million unit powder RxNorm: Application TO P BID 05/07/2017 05/20/2018 Inactive cholestyramine (with sugar) 4 gram oral powder RxNorm: 926320 1 Unit Dose PO QD 05/07/2017 01/20/2018 Inactive Ativan 0.5 mg tablet RxNorm: 267349 TAKE ONE TABLET BY MOUTH TH REE TIMES DAILY 05/01/2017 09/02/2017 Inactive Trulicity 1.5 mg/0.5 mL subcutaneous pen injector RxNorm: 15 75928 1 Unit Dose SQ WEEKLY 02/22/2017 03/23/2017 Inactive doxycycline hyclate 100 mg capsule RxNorm: 7278671 1 Capsule(s) PO BID 01/23/2017 02/05/2017 Inactive Amaryl 4 mg tablet RxNorm: 544655 1 Tablet(s) PO BID replaces 2mg 1 03/25/2016 05/22/2017 Inactive magnesium oxide 400 mg capsule RxNorm: 050978 1 Capsule(s) PO QD 07/18/2017 Inactive Ativan 0.5 mg tablet RxNorm: 670813 TAKE ONE TABLET BY MOUTH TH REE TIMES DAILY 01/17/2017 05/01/2017 Inactive Amaryl 2 mg tablet RxNorm: 493942 1 Tablet(s) PO BID 12/27/201601/22 Inactive Amaryl 2 mg tablet RxNorm: 002352 1 Tablet(s) PO BID 12/26/201612/26 Inactive Ativan 0.5 mg tablet RxNorm: 293026 TAKE ONE TABLET BY MOUTH TH REE TIMES DAILY 12/05/2016 01/18/2017 Inactive pramipexole 1 mg tablet RxNorm: 399818 1 Tablet(s) PO Q PM for restless legs--replaces requip 11/26/2016 05/30/2017 Inactive Mobic 15 mg tablet RxNorm: 331061 1 Tablet(s) PO QD 10/08/20162016 Inactive cyclobenzaprine 5 mg tablet RxNorm: 993256 1/2- 1 Tablet(s) PO TID 10/08/2016 10/17/2016 Inactive Ativan 0.5 mg tablet RxNorm: 851924 1 Tablet(s) PO TID 09/20/201607/2016 Inactive amitriptyline 50 mg tablet RxNorm: 950136 1 Tablet(s) PO QHS 201605/30/2017 Inactive propranolol 60 mg tablet RxNorm: 369793 1 Tablet(s) PO BID repl aces 40mg dose 09/19/2016 06/26/2017 Inactive Ativan 0.5 mg tablet RxNorm: 192522 1 Tablet(s) PO TID 08/20/2016 Inactive omeprazole 40 mg capsule,delayed release RxNorm: 801038 1 Capsule(s) PO BID TAKE ONE CAPSULE BY MOUTH TWICE DAILY 08/20/2016 05/30/2017 Inactive amitriptyline 50 mg tablet RxNorm: 553161 1 Tablet(s) PO QHS 201609/18/2016 Inactive pramipexole 1 mg tablet RxNorm: 137461 1 Tablet(s) PO Q PM for restless legs--replaces requip 07/23/2016 11/25/2016 Inactive Amaryl 2 mg tablet RxNorm: 396037 1 Tablet(s) PO BID 07/23/201612/27 Inactive propranolol 40 mg tablet RxNorm: 675762 1 Tablet(s) PO BID 07/13/1909/18/2016 Inactive Ativan 0.5 mg tablet RxNorm: 015263 1 Tablet(s) PO QID 06/19/2016 Inactive Amaryl 2 mg tablet RxNorm: 899969 1 Tablet(s) PO BID 06/19/201607/22 Inactive Ativan 0.5 mg tablet RxNorm: 232636 1 Tablet(s) PO QID 06/19/2016 Inactive buspirone 5 mg tablet RxNorm: 371747 1 Tablet(s) PO TID 06/19/2016 Inactive Ativan 0.5 mg tablet RxNorm: 070506 1 Tablet(s) PO BID 05/24/2016 Inactive buspirone 5 mg tablet RxNorm: 544928 1 Tablet(s) PO TID 05/23/2016 Inactive Macrobid 100 mg capsule RxNorm: 094836 1 Capsule(s) PO QOD 05/03/19 17 10/07/2016 Inactive pramipexole 1 mg tablet RxNorm: 724797 Tablet(s) 1 Tabl et(s) PO QPM for restless legs--replaces requip 04/26/2016 06/24/2016 Inactive propranolol 40 mg tablet RxNorm: 095638 TAKE ONE TABLET BY MOUT H TWICE DAILY 04/26/2016 06/24/2016 Inactive Detrol LA 4 mg capsule,extended release RxNorm: 691653 1 Capsul e(s) PO QHS 04/03/2016 05/02/2016 Inactive prednisone 20 mg tablet RxNorm: 056296 1 Tablet(s) PO QD 02/29/2016 0 03/04/2016 Inactive Actos 30 mg tablet RxNorm: 274441 TAKE ONE TABLET BY MOUTH ONCE DAILY 02/27/2016 12/19/2016 Inactive clindamycin 300 mg capsule RxNorm: 660766 1 Capsule(s) PO TID 02/0102/08/2016 Inactive Flagyl 500 mg tablet RxNorm: 622357 1 Tablet(s) PO BID 02/02/201609/2015 Inactive omeprazole 40 mg capsule,delayed release RxNorm: 463312 TAKE ONE CAPSULE BY MOUTH TWICE DAILY 01/15/2016 07/12/2016 Inactive gabapentin 300 mg capsule RxNorm: 872042 1 Capsule(s) PO QAM an d 2 po q HS 01/05/2016 06/18/2016 Inactive gabapentin 300 mg capsule RxNorm: 286637 1 Capsule(s) P O BID 1 Capsule(s) PO QHS 12/05/2015 01/04/2016 Inactive cyclobenzaprine 10 mg tablet RxNorm: 058720 1 Tablet(s) PO TID for spasm as needed for muscle spasm 12/05/2015 06/18/2016 Inactive ciprofloxacin 250 mg tablet RxNorm: 563421 1 Tablet(s) PO BID 12/0412/14/2015 Inactive pramipexole 1 mg tablet RxNorm: 579680 Tablet(s) 1 Tabl et(s) PO QPM for restless legs--replaces requip 11/07/2015 11/26/2016 Inactive Januvia 100 mg tablet RxNorm: 758402 1 Tablet(s) PO QD 10/26/201504/2015 Inactive propranolol 40 mg tablet RxNorm: 782332 TAKE ONE TABLET BY MOUT H TWICE DAILY 10/25/2015 04/21/2016 Inactive gabapentin 300 mg capsule RxNorm: 116728 1 Capsule(s) PO QHS 201512/04/2015 Inactive Cipro 500 mg tablet RxNorm: 876975 1 Tablet(s) PO BID 10/05/201511/2015 Inactive pramipexole 1 mg tablet RxNorm: 327898 Tablet(s) 1 Tabl et(s) PO QPM for restless legs--replaces requip 10/04/2015 11/02/2015 Inactive propranolol 40 mg tablet RxNorm: 476081 TAKE ONE TABLET BY MOUT H TWICE DAILY 09/26/2015 10/24/2015 Inactive Amaryl 2 mg tablet RxNorm: 092571 1 Tablet(s) PO QD 09/15/20152016 Inactive gabapentin 300 mg capsule RxNorm: 704403 1 Capsule(s) PO QHS 201510/14/2015 Inactive buspirone 5 mg tablet RxNorm: 755640 1 Tablet(s) PO TID 09/15/2015 Inactive pramipexole 1 mg tablet RxNorm: 044658 Tablet(s) 1 Tabl et(s) PO QPM for restless legs--replaces requip 09/08/2015 10/03/2015 Inactive pramipexole 1 mg tablet RxNorm: 887354 1 Tablet(s) PO Q PM for restless legs--replaces requip 08/08/2015 09/08/2015 Inactive Amaryl 2 mg tablet RxNorm: 400083 1 Tablet(s) PO QD 07/07/20152015 Inactive pramipexole 1 mg tablet RxNorm: 897907 1 Tablet(s) PO Q PM for restless legs--replaces requip 07/05/2015 08/03/2015 Inactive ropinirole 2 mg tablet RxNorm: 672683 TAKE ONE TABLET BY MOUTH TWICE DAILY 05/09/2015 09/14/2015 Inactive Diflucan 100 mg tablet RxNorm: 729491 1 Tablet(s) PO QD 03/30/2015 Inactive propranolol 40 mg tablet RxNorm: 769311 1 Tablet(s) PO BID 02/24/20 15 08/21/2015 Inactive [SAVINGS FOR UNINSURED PATIE NTS -- BIN:707082, PCN: ASPROD1, Group: AME08, ID# [id number], Process claim through Blink, for questions: . THIS IS NOT INSURANCE.] Flagyl 500 mg tablet RxNorm: 398205 1 Tablet(s) PO BID 02/03/201502/2015 Inactive Cipro 500 mg tablet RxNorm: 204970 1 Tablet(s) PO BID 02/03/201502/01 Inactive Carafate 1 gram tablet RxNorm: 979942 1 Tablet(s) PO QID make i nto slurry 02/03/2015 09/14/2015 Inactive ondansetron HCl 4 mg tablet RxNorm: 486794 1 Tablet(s) PO Q4H as needed for nausea 12/29/2014 01/04/2016 Inactive Diflucan 100 mg tablet RxNorm: 784096 1 Tablet(s) PO QD 12/29/2014 Inactive Keflex 500 mg capsule RxNorm: 351076 1 Capsule(s) PO TID 12/29/2014 1 03/09/2014 Inactive omeprazole 40 mg capsule,delayed release RxNorm: 487561 1 Capsu le(s) PO BID 12/27/2014 12/21/2015 Inactive [SAVINGS FOR UNINSUR ED PATIENTS -- BIN:855810, PCN: ASPROD1, Group: AME08, ID# [id number], Process claim through MedImpact, for questions: . THIS IS NOT INSURANCE.] ropinirole 2 mg tablet RxNorm: 388653 1 Tablet(s) PO BID 09/29/2014 0 03/27/2015 Inactive [SAVINGS FOR UNINSURED PATIENTS -- BIN:0 26062, PCN: ASPROD1, Group: AME08, ID# [id number], Process claim through MedImpact, for questions: . THIS IS NOT INSURANCE.] buspirone 5 mg tablet RxNorm: 388861 1 Tablet(s) PO TID 09/17/2014 Inactive ropinirole 2 mg tablet RxNorm: 423872 1 Tablet(s) PO BID 09/02/2014 0 09/28/2014 Inactive [SAVINGS FOR UNINSURED PATIENTS -- BIN:0 23263, PCN: ASPROD1, Group: AME08, ID# [id number], Process claim through MedImpact, for questions: . THIS IS NOT INSURANCE.] Zyrtec 10 mg tablet RxNorm: 0071412 1 Tablet(s) PO QD 09/02/201412/02 Inactive propranolol 40 mg tablet RxNorm: 593707 1 Tablet(s) PO BID 07/21/19 15 02/23/2015 Inactive [SAVINGS FOR UNINSURED PATIE NTS -- BIN:987455, PCN: ASPROD1, Group: AME08, ID# [id number], Process claim through MedImpact, for questions: . THIS IS NOT INSURANCE.] ropinirole 2 mg tablet RxNorm: 948909 1 Tablet(s) PO QHS 05/14/2014 0 09/01/2014 Inactive [SAVINGS FOR UNINSURED PATIENTS -- BIN:0 34342, PCN: ASPROD1, Group: AME08, ID# [id number], Process claim through MedImpact, for questions: . THIS IS NOT INSURANCE.] cyclobenzaprine 10 mg tablet RxNorm: 967598 1 Tablet(s) PO QHS for spasm 04/06/2014 09/01/2014 Inactive ipratropium-albuterol 0.5 mg-3 mg(2.5 mg base)/3 mL ne bulization soln RxNorm: 6811355 1 Unit Dose INH Q4H 03/16/2014 No Stop Date Active [SAVINGS FOR UNINSURED PATIENTS -- BIN:301590, PCN: ASPROD1, Group: AME08, ID# [id number], Process claim through MedImpact, for questions: . THIS IS NOT INSURANCE.] prednisone 20 mg tablet RxNorm: 283445 1 Tablet(s) PO BID 03/09/2014 03/15/2014 Inactive [SAVINGS FOR UNINSURED PATIENTS -- BIN:0 87038, PCN: ASPROD1, Group: AME08, ID# [id number], Process claim through MedImpact, for questions: . THIS IS NOT INSURANCE.] ipratropium-albuterol 0.5 mg-3 mg(2.5 mg base)/3 mL ne bulization soln RxNorm: 2446181 1 Unit Dose INH Q4H 03/09/2014 03/15/2014 Inactive [SAVINGS FOR UNINSURED PATIENTS -- BIN:968758, PCN: ASPROD1, Group: AME08, ID# [id number], Process claim through MedImpact, for questions: . THIS IS NOT INSURANCE.] Levaquin 500 mg tablet RxNorm: 901367 1 Tablet(s) PO QD 03/09/2014 Inactive [SAVINGS FOR UNINSURED PATIENTS -- BIN:0 66735, PCN: ASPROD1, Group: AME08, ID# [id number], Process claim through MedImpact, for questions: . THIS IS NOT INSURANCE.] Carafate 1 gram tablet RxNorm: 518230 1 Tablet(s) PO AC & HS ma ke into slurry 02/09/2014 09/01/2014 Inactive [SAVINGS FOR UNINSUR ED PATIENTS -- BIN:030166, PCN: ASPROD1, Group: AME08, ID# [id number], Process claim through MedImpact, for questions: . THIS IS NOT INSURANCE.] Fioricet 50 mg-300 mg-40 mg capsule RxNorm: 7051388 1-2 Capsule(s) PO Q4H as needed for headache --max of 6 a day 02/09/2014 09/01/2014 Inactive [SAVINGS FOR UNINSURED PATIENTS -- BIN:532345, PCN: ASPROD1, Group: AME08, ID# [id number], Process claim through MedImpact, for questions: . THIS IS NOT INSURANCE.] propranolol 40 mg tablet RxNorm: 717076 1 Tablet(s) PO BID 12/08/19 14 06/04/2014 Inactive [SAVINGS FOR UNINSURED PATIE NTS -- BIN:417200, PCN: ASPROD1, Group: AME08, ID# [id number], Process claim through MedImpact, for questions: . THIS IS NOT INSURANCE.] buspirone 5 mg tablet RxNorm: 818664 1 Tablet(s) PO TID 12/02/2013 Inactive omeprazole 40 mg capsule,delayed release RxNorm: 123847 1 Capsu le(s) PO BID 11/25/2013 11/19/2014 Inactive [SAVINGS FOR UNINSUR ED PATIENTS -- BIN:121719, PCN: ASPROD1, Group: AME08, ID# [id number], Process claim through MedImpact, for questions: . THIS IS NOT INSURANCE.] ropinirole 2 mg tablet RxNorm: 021255 1 Tablet(s) PO QHS 11/10/2013 0 05/08/2014 Inactive [SAVINGS FOR UNINSURED PATIENTS -- BIN:0 51641, PCN: ASPROD1, Group: AME08, ID# [id number], Process claim through MedImpact, for questions: . THIS IS NOT INSURANCE.] Cipro 500 mg tablet RxNorm: 689341 1 Tablet(s) PO BID 10/21/2013/03/2013 Inactive [SAVINGS FOR UNINSURED PATIENTS -- BIN:0 95605, PCN: ASPROD1, Group: AME08, ID# [id number], Process claim through MedImpact, for questions: . THIS IS NOT INSURANCE.] hydroxyzine HCl 25 mg tablet RxNorm: 469022 1 Tablet(s) PO Q4-6 H as needed 10/05/2013 01/04/2016 Inactive [SAVINGS FOR UNINSUR ED PATIENTS -- BIN:945302, PCN: ASPROD1, Group: AME08, ID# [id number], Process claim through MedImpact, for questions: . THIS IS NOT INSURANCE.] triamcinolone acetonide 0.1 % topical cream RxNorm: 3158868 Appl ication TOP BID 10/05/2013 09/01/2014 Inactive [SAVINGS FOR UNINSUR ED PATIENTS -- BIN:458980, PCN: ASPROD1, Group: AME08, ID# [id number], Process claim through MedImpact, for questions: . THIS IS NOT INSURANCE.] albuterol sulfate HFA 90 mcg/actuation aerosol inhaler RxNor m: 4772787 2 Puff(s) INH Q4H as needed for cough 10/01/2013 12/22/2013 Inactive [MAKSIM INGS FOR UNINSURED PATIENTS -- BIN:123593, PCN: ASPROD1, Group: AME08, ID# [id number], Process claim through MedImpact, for questions: . THIS IS NOT INSURANCE.] propranolol 40 mg tablet RxNorm: 503191 1 Tablet(s) PO BID 09/02/19 14 11/29/2013 Inactive [SAVINGS FOR UNINSURED PATIE NTS -- BIN:720172, PCN: ASPROD1, Group: AME08, ID# [id number], Process claim through MedImpact, for questions: . THIS IS NOT INSURANCE.] propranolol 40 mg tablet RxNorm: 175171 1 Tablet(s) PO BID 08/05/19 14 08/31/2013 Inactive [SAVINGS FOR UNINSURED PATIE NTS -- BIN:850075, PCN: ASPROD1, Group: AMLauren, ID# [id number], Process claim through Blink, for questions: . THIS IS NOT INSURANCE.] Toprol XL 50 mg tablet,extended release RxNorm: 285364 1 Tablet (s) PO QHS 07/23/2013 08/03/2013 Inactive Macrobid 100 mg capsule RxNorm: 027420 1 Capsule(s) PO BID 07/04/19 14 07/09/2013 Inactive Toprol XL 50 mg tablet,extended release RxNorm: 326142 1 Tablet (s) PO QHS 05/28/2013 06/26/2013 Inactive ciprofloxacin 500 mg tablet RxNorm: 228359 1 Tablet(s) PO BID 05/2706/02/2013 Inactive Bystolic 5 mg tablet RxNorm: 140464 1 Tablet(s) PO QD 05/27/201305/03 Inactive ropinirole 2 mg tablet RxNorm: 101700 1 Tablet(s) PO QHS 04/22/2013 0 11/09/2013 Inactive Cipro 250 mg tablet RxNorm: 221272 1 Tablet(s) PO BID 04/06/201311/2013 Inactive ropinirole 2 mg tablet RxNorm: 844725 1 Tablet(s) PO QHS 02/17/2013 0 04/21/2013 Inactive Amaryl 2 mg tablet RxNorm: 533552 1 Tablet(s) PO QAM 11/11/201211/10 Inactive Amaryl 2 mg tablet RxNorm: 574042 1 Tablet(s) PO QAM 11/11/201204/05 Inactive omeprazole 40 mg capsule,delayed release RxNorm: 789481 1 Capsu le(s) PO BID 08/14/2012 08/08/2013 Inactive Bystolic 5 mg tablet RxNorm: 495144 1 Tablet(s) PO QD 08/14/201205/03 Inactive propranolol 60 mg tablet RxNorm: 496496 Tablet(s) PO TAKE 1 TAB LET TWICE DAILY 08/01/2012 09/01/2012 Inactive Bystolic 5 mg tablet RxNorm: 474652 1 Tablet(s) PO QD 07/21/201207/02 Inactive Bystolic 5 mg tablet RxNorm: 625098 1 Tablet(s) PO QD 07/21/201207/03 Inactive Prilosec 40 mg capsule,delayed release RxNorm: 505076 1 Capsule (s) PO BID 06/24/2012 07/21/2012 Inactive buspirone 10 mg tablet RxNorm: 536507 1 Tablet(s) PO TID 05/08/2012 0 05/23/2016 Inactive Valium 10 mg tablet RxNorm: 847582 1 Tablet(s) PO BID 04/02/201207/03 Inactive Endocet 10 mg-325 mg tablet RxNorm: 9132037 1 Tablet(s) PO QID 03/0607/21/2012 Inactive as needed for severe pain Valium 10 mg tablet RxNorm: 672231 1 Tablet(s) PO BID 02/27/2012 No S top Date Active Endocet 10 mg-325 mg tablet RxNorm: 8062105 1 Tablet(s) PO QID 02/0203/27/2012 Inactive as needed for severe pain Endocet 10 mg-325 mg tablet RxNorm: 4195619 1 Tablet(s) PO QID 01/0302/26/2012 Inactive as needed for severe pain Valium 10 mg tablet RxNorm: 647940 1 Tablet(s) PO BID 01/29/2012 No S top Date Active Protonix 40 mg tablet,delayed release RxNorm: 791847 1 Tablet(s ) PO QD 01/28/2012 07/21/2012 Inactive metformin ER 500 mg tablet,extended release 24 hr RxNorm: 86 0977 1 Tablet(s) PO QD 12/26/2011 07/20/2012 Inactive Trazadone 150 mg Tablet RxNorm: 1 Tablet(s) PO QHS prn sleep 1 04/23/2012 Inactive Endocet 10 mg-325 mg tablet RxNorm: 8276273 1 Tablet(s) PO QID 12/0301/24/2012 Inactive as needed for severe pain Nexium 40 mg capsule,delayed release RxNorm: 844046 1 Capsule(s ) PO QD 12/26/2011 01/27/2012 Inactive Symbicort 160 mcg-4.5 mcg/actuation HFA Aerosol Inhaler RxNo rm: 3638648 2 Puff(s) INH BID 12/04/2011 07/21/2012 Inactive Endocet 10 mg-325 mg tablet RxNorm: 8857241 1 Tablet(s) PO QID 11/0312/25/2011 Inactive as needed for severe pain metformin ER 500 mg tablet,extended release 24 hr RxNorm: 86 0977 1 Tablet(s) PO QD 11/20/2011 12/19/2011 Inactive metformin ER 500 mg tablet,extended release 24 hr RxNorm: 86 0977 1 Tablet(s) PO QD 11/20/2011 11/19/2011 Inactive amitriptyline 100 mg tablet RxNorm: 486620 Tablet(s) PO QHS 1 a nd /2 tabs QHS 11/12/2011 11/13/2011 Inactive Valium 10 mg tablet RxNorm: 462423 1 Tablet(s) PO BID 11/09/2011 No S top Date Active Endocet 10 mg-325 mg tablet RxNorm: 8359900 1 Tablet(s) PO QID 10/0211/14/2011 Inactive as needed for severe pain Aricept 10 mg Tab RxNorm: 048964 1 Tablet(s) PO QD 10/05/2011 013 Inactive Valium 10 mg tablet RxNorm: 649929 1 Tablet(s) PO BID 10/05/2011 No S top Date Active Endocet 10 mg-325 mg Tab RxNorm: 7109848 1 Tablet(s) PO QID 012 10/09/2011 Inactive as needed for severe pain Aricept 10 mg Tab RxNorm: 795350 1 Tablet(s) PO QD 08/14/2011 012 Inactive Endocet 10 mg-325 mg Tab RxNorm: 8179681 1 Tablet(s) PO QID 012 08/31/2011 Inactive as needed for severe pain Valium 10 mg Tab RxNorm: 605783 1 Tablet(s) PO BID 08/02/2011 No Stop Date Active propranolol 60 mg tablet RxNorm: 554626 1 Tablet(s) PO BID 07/26/19 12 09/11/2011 Inactive amitriptyline 100 mg tablet RxNorm: 197947 Tablet(s) PO QHS 1 a nd /2 tabs QHS 06/20/2011 09/11/2011 Inactive buspirone 10 mg tablet RxNorm: 591159 1 Tablet(s) PO BID 06/18/2011 0 09/15/2011 Inactive propranolol 60 mg Tab RxNorm: 706599 1 Tablet(s) PO BID 06/18/2011 Inactive gabapentin 800 mg Tab RxNorm: 676248 1 Tablet(s) PO BID 06/18/2011 Inactive ropinirole 2 mg tablet RxNorm: 955600 1 Tablet(s) PO QHS 05/29/2011 0 08/26/2011 Inactive trimethoprim 100 mg Tab RxNorm: 025395 1 Tablet(s) PO QHS 05/29/2011 07/21/2012 Inactive Endocet 10 mg-325 mg Tab RxNorm: 4191573 1 Tablet(s) PO QID 012 2011 Inactive as needed for severe pain Valium 10 mg Tab RxNorm: 462571 1 Tablet(s) PO QHS N eed to take med as prescribed. this is a 40 day RX. No early fills. 05/17/2011 05/20/2018 Inactive propranolol 60 mg Tab RxNorm: 838957 1 Tablet(s) PO BID 04/16/2011 Inactive Neurontin 800 mg Tab RxNorm: 034556 1 Tablet(s) PO QHS 04/05/201103/2011 Inactive Endocet 10 mg-325 mg Tab RxNorm: 4128855 1 Tablet(s) PO QID 012 05/02/2011 Inactive as needed for severe pain oxycodone-acetaminophen 10 mg-325 mg tablet RxNorm: 3290713 1 Ta blet(s) PO Q4H 03/28/2011 05/19/2012 Inactive Valium 10 mg Tab RxNorm: 335193 1 Tablet(s) PO QHS 03/28/2011 012 Inactive buspirone 10 mg Tab RxNorm: 622585 1 Tablet(s) PO BID 03/27/201106/02 Inactive propranolol 60 mg Tab RxNorm: 086489 1 Tablet(s) PO BID 03/19/2011 Inactive Klor-Con M20 20 mEq Tab RxNorm: 4483122 1 Tablet(s) PO QD 03/19/2011 07/21/2012 Inactive Aricept 10 mg Tab RxNorm: 895215 1 Tablet(s) PO QD 02/27/2011 012 Inactive propranolol 60 mg Tab RxNorm: 718129 1 Tablet(s) PO BID 02/19/2011 Inactive omeprazole 40 mg capsule,delayed release RxNorm: 915244 1 Capsu le(s) PO BID 01/24/2011 05/23/2011 Inactive clindamycin 300 mg capsule RxNorm: 996477 1 Capsule(s) PO TID 01/2402/02/2011 Inactive propranolol 60 mg Tab RxNorm: 746931 1 Tablet(s) PO BID 01/22/2011 No Stop Date Active nystatin 100,000 unit/g Topical Cream RxNorm: 615573 Applicatio n TOP BID 01/15/2011 01/14/2011 Inactive to rash for 2-4 week s Diflucan 200 mg Tab RxNorm: 832312 1 Tablet(s) PO QD 01/15/201101/28 Inactive buspirone 10 mg Tab RxNorm: 476271 1 Tablet(s) PO BID 01/08/201103/05 Inactive Valium 10 mg Tab RxNorm: 042983 1 Tablet(s) PO QHS 01/05/2011 012 Inactive Diflucan 200 mg Tab RxNorm: 670100 1 Tablet(s) PO QD 01/01/201101/14 Inactive Diflucan 200 mg Tab RxNorm: 681898 1 Tablet(s) PO QD 12/18/201012/31 Inactive Valium 10 mg Tab RxNorm: 041277 1 Tablet(s) PO QHS 12/12/2010 011 Inactive Diflucan 200 mg Tab RxNorm: 733258 1 Tablet(s) PO QD 12/07/201012/18 Inactive Aricept 10 mg Tab RxNorm: 808131 1 Tablet(s) PO QD 11/20/2010 011 Inactive ropinirole 1 mg Tab RxNorm: 571537 1 Tablet(s) PO QHS 11/16/201005/03 Inactive enalapril maleate 5 mg Tab RxNorm: 141912 1 Tablet(s) PO QD 011 05/20/2018 Inactive buspirone 10 mg Tab RxNorm: 426099 1 Tablet(s) PO BID 11/16/201012/02 Inactive Valium 10 mg Tab RxNorm: 481825 1 Tablet(s) PO QHS 11/07/2010 011 Inactive Pyridium 100 mg Tab RxNorm: 6958649 1 Tablet(s) PO TID 11/02/201004/2010 Inactive Macrobid 100 mg Cap RxNorm: 1031156 1 Capsule(s) PO BID 11/02/2010 Inactive buspirone 10 mg Tab RxNorm: 367428 1 Tablet(s) PO QHS 10/18/201005/02 Inactive propranolol 60 mg Tab RxNorm: 919952 1 Tablet(s) PO BID 09/18/2010 Inactive Valium 10 mg Tab RxNorm: 041216 1 Tablet(s) PO QHS 09/05/2010 011 Inactive Aricept 10 mg Tab RxNorm: 875076 1 Tablet(s) PO QD 08/14/2010 011 Inactive Valium 10 mg Tab RxNorm: 920644 1 Tablet(s) PO QHS 06/26/2010 011 Inactive ropinirole 1 mg Tab RxNorm: 928014 1 Tablet(s) PO QHS 06/19/201010/02 Inactive omeprazole 40 mg Cap, delayed release RxNorm: 806739 1 Capsule( s) PO QD 06/07/2010 10/04/2010 Inactive Endocet 10 mg-325 mg Tab RxNorm: 6132184 1 Tablet(s) PO QID as needed for severe pain 06/07/2010 03/07/2011 Inactive Endocet 10 mg-325 mg Tab RxNorm: 8980318 1 Tablet(s) PO QID as needed for severe pain 05/04/2010 06/02/2010 Inactive Valium 10 mg Tab RxNorm: 597579 1 Tablet(s) PO QHS 05/01/2010 011 Inactive propranolol 60 mg Tab RxNorm: 549170 1 Tablet(s) PO BID 04/03/2010 Inactive Valium 10 mg Tab RxNorm: 389089 1 Tablet(s) PO QHS 03/28/2010 011 Inactive omeprazole 40 mg Cap, Delayed Release RxNorm: 705705 1 Capsule( s) PO QD 03/28/2010 06/06/2010 Inactive Endocet 10 mg-325 mg Tab RxNorm: 2474926 1 Tablet(s) PO QID prn ari n 03/27/2010 05/20/2018 Inactive Valium 10 mg Tab RxNorm: 608660 1 Tablet(s) PO QHS 02/20/2010 011 Inactive Diflucan 100 mg Tab RxNorm: 964557 1 Tablet(s) PO BID 01/23/201003/2009 Inactive Diflucan 100 mg Tab RxNorm: 961313 1 Tablet(s) PO BID 01/05/201001/02 Inactive Aricept 10 mg Tab RxNorm: 178488 1 Tablet(s) PO QD 12/01/2009 011 Inactive OxyContin 20 mg 12 hr Tab RxNorm: 9340846 1 Tablet(s) PO BID 200904/05/2010 Inactive oxycodone-acetaminophen 10 mg-325 mg Tab RxNorm: 9581305 1 Table t(s) PO Q4H 11/22/2009 11/26/2009 Inactive Phenergan 25 mg Tab RxNorm: 567709 1 Tablet(s) PO PRN MIGRAINE 11/0303/07/2011 Inactive Demerol 100 mg Tab RxNorm: 343695 1 Tablet(s) PO PRN MIGRAINE 11/2203/07/2011 Inactive Oxycodone-Acetaminophen 10 mg-325 mg Tab RxNorm: 9441209 1 Table t(s) PO Q4H 10/11/2009 10/15/2009 Inactive Percocet 10 mg-325 mg Tab RxNorm: 3445821 1 Tablet(s) PO Q4H 200910/24/2009 Inactive propranolol 60 mg Tab RxNorm: 904662 1 Tablet(s) PO BID 08/29/2009 Inactive Valium 10 mg Tab RxNorm: 871333 1 Tablet(s) PO QHS 08/16/2009 010 Inactive Keflex 500 mg Cap RxNorm: 300807 1 Capsule(s) PO BID 07/25/200907/31 Inactive Hydroxyzine 25 mg Tab RxNorm: 848337 1 Tablet(s) PO TID 07/25/2009 Inactive Prednisone 20 mg Tab RxNorm: 390696 1 Tablet(s) PO BID 07/25/2009 Inactive Demerol 100 mg Tab RxNorm: 862499 1 Tablet(s) PO PRN MIGRAINE 07/25 No Stop Date Active Ropinirole 1 mg Tab RxNorm: 821970 1 Tablet(s) PO HS 07/20/200902/14 Inactive Valium 10 mg Tab RxNorm: 947550 1 Tablet(s) PO QHS 07/18/2009 010 Inactive Endocet 10 mg-325 mg Tab RxNorm: 0284654 1 Tablet(s) PO TID 010 07/07/2009 Inactive Demerol 100 mg Tab RxNorm: 682355 1 Tablet(s) PO PRN MIGRAINE 06/08 No Stop Date Active Ropinirole 1 mg Tab RxNorm: 211844 1 Tablet(s) PO HS 05/16/200907/14 Inactive ipratropium-albuterol 0.5 mg-3 mg(2.5 mg base)/3 mL ne bulization soln RxNorm: 9532990 1 Unit Dose INH Q4H as needed No Start Date Active MagOx 400 mg (241.3 mg magnesium) tablet RxNorm: 594013 1 Table t(s) PO BID No Start Date Active Vitamin B12 1000mcg Tablet RxNorm: 1 Tablet(s) PO QD No Start Date Active Vitamin D3 5,000 unit tablet RxNorm: 854185 1 Tablet(s) PO QD No Star t Date Active Tylenol Arthritis Pain 650 mg tablet,extended release RxNorm : 6053057 1 Tablet(s) PO Q4H No Start Date Active Lotrimin AF 2 % topical powder RxNorm: 848049 1 Application TOP BID No Start Date Active enalapril maleate 5 mg Tab RxNorm: 858390 1 Tablet(s) PO QD No Star t Date 07/20/2012 Inactive Demerol 100 mg Tab RxNorm: 927596 Tablet(s) PO PRN MIGRAINE No Star t Date 06/02/2009 Inactive metformin 500 mg tablet RxNorm: 983771 1 Tablet(s) PO QD No Start D ate 04/05/2013 Inactive Breo Ellipta 100 mcg-25 mcg/dose powder for inhalation RxNor m: 2396187 1 Puff(s) INH BID No Start Date 01/04/2016 Inactive Mag-Oxide 400 mg Tab RxNorm: 385701 1 Tablet(s) PO QD No Start Date 0 07/21/2012 Inactive Cipro 500 mg Tab RxNorm: 345173 1 Tablet(s) PO QD No Start Date 04/05 Inactive Ativan 0.5 mg tablet RxNorm: 067205 1 Tablet(s) PO TID as needed No Start Date 05/06/2019 Inactive melatonin 3 mg tablet RxNorm: 240111 2 Tablet(s) PO QHS No Start Da te 08/19/2018 Inactive buspirone 10 mg Tab RxNorm: 057700 1 Tablet(s) PO QD No Start Date Inactive sucralfate 100 mg/mL Oral Susp RxNorm: 541807 2 Teaspoon(s) PO QID No Start Date 07/21/2012 Inactive hydrocodone 5 mg-acetaminophen 325 mg tablet RxNorm: 961610 1 Tablet(s) PO Q4H as needed No Start Date 08/19/2018 Inactive Amaryl 2 mg tablet RxNorm: 430767 1 Tablet(s) PO BID No Start Date Inactive OxyContin 20 mg 12 hr Tab RxNorm: 5562408 1 Tablet(s) PO BID No Sta rt Date 11/27/2009 Inactive propranolol 40 mg tablet RxNorm: 607852 1 Tablet(s) PO QID No Start Date 01/19/2018 Inactive Trazadone 150 mg Tablet RxNorm: 1-2 Tablet(s) PO QHS prn sleep No Start Date 08/09/2010 Inactive propranolol 60 mg Tab RxNorm: 407391 1/2 Tablet(s) PO BID No Start Date 01/21/2011 Inactive insulin NPH and regular human subcutaneous RxNorm: 4423651 subcu taneous No Start Date 11/20/2018 Inactive Ativan 0.5 mg tablet RxNorm: 180595 1 Tablet(s) PO QID No Start Date 06/18/2016 Inactive Vasotec 5 mg Tab RxNorm: 631222 1 Tablet(s) PO BID No Start Date 06/2011 Inactive Toprol XL 50 mg tablet,extended release RxNorm: 936103 1 Tablet (s) PO BID No Start Date 04/05/2013 Inactive Ativan 0.5 mg tablet RxNorm: 438089 1 Tablet(s) PO TID No Start Date 05/25/2016 Inactive Klor-Con M20 20 mEq Tab RxNorm: 8258516 1 Tablet(s) PO QD No Start Date 03/19/2011 Inactive sumatriptan 100 mg tablet RxNorm: 795117 1 Tablet(s) PO at headache onset--repeat in 2hrs if remains No Start Date 07/21/2012 Inactive propranolol 60 mg Tab RxNorm: 718534 1 Tablet(s) PO BID No Start Da te 08/28/2009 Inactive Cholestyramine Light 4 gram Oral Powder RxNorm: 1028950 1 Unit Dose PO QD in water No Start Date 07/21/2012 Inactive nystatin 100,000 unit/g Topical Powder RxNorm: 463262 Applicati on TOP BID No Start Date 07/21/2012 Inactive vitamin [id number] acid sublingual RxNorm: sublingual No Start Date 07/05/2013 Inactive cyclobenzaprine 5 mg tablet RxNorm: 562694 1/2-1 Tablet (s) PO TID as needed for muscle spasm No Start Date 07/18/2017 Inactive tramadol 50 mg tablet RxNorm: 375045 2 Tablet(s) PO TID as need ed for pain No Start Date 09/01/2014 Inactive aspirin 81 mg Tab RxNorm: 657704 1 Tablet(s) PO QOD No Start Date 04/2013 Inactive Vitamin B12 1000mcg Tablet RxNorm: 1 Tablet(s) PO QD No Start Date 07/18/2017 Inactive cholestyramine (with sugar) 4 gram oral powder RxNorm: 83664 3 1 Unit(s) PO QD as needed No Start Date 05/20/2018 Inactive ProAir HFA 90 mcg/Actuation Aerosol Inhaler RxNorm: 450566 2 Puff(s) INH Q4H prn shortness of breath No Start Date 07/21/2012 Inactive pravastatin 10 mg Tab RxNorm: 892796 1 Tablet(s) PO QD No Start Date 07/21/2012 Inactive gabapentin 800 mg Tab RxNorm: 608198 1 Tablet(s) PO BID No Start Da te 06/03/2011 Inactive Endocet 10 mg-325 mg Tab RxNorm: 1545889 1 Tablet(s) PO TID No Star t Date 06/02/2009 Inactive Naproxen 500 mg Tab RxNorm: 263061 1 Tablet(s) PO BID No Start Date 0 04/05/2010 Inactive Valium 10 mg Tab RxNorm: 810286 1 Tablet(s) PO BID No Start Date 07/04 Inactive enalapril maleate 5 mg Tab RxNorm: 341810 1 Tablet(s) PO QD No Star t Date 11/15/2010 Inactive doxepin 10 mg capsule RxNorm: 4067436 2 Capsule(s) PO QHS No Start Date 09/17/2018 Inactive MS Contin 15 mg Tab RxNorm: 809259 1 Tablet(s) PO BID No Start Date 0 09/18/2010 Inactive buspirone 5 mg tablet RxNorm: 476318 1 Tablet(s) PO TID No Start Da te 12/01/2013 Inactive Celoron 3 Fish Oil Cap RxNorm: 1 Capsule(s) PO QD No Start Date 07/03 Inactive enalapril maleate 5 mg Tab RxNorm: 761235 1/2 Tablet(s) PO QD No St art Date 03/07/2011 Inactive Lyrica 75 mg capsule RxNorm: 994766 1 Capsule(s) PO QHS No Start Da te 02/08/2014 Inactive Lopressor 100 mg tablet RxNorm: 518951 1 Tablet(s) PO BID No Start Date 06/08/2018 Inactive Lantus Solostar U-100 Insulin 100 unit/mL (3 mL) subcu taneous pen RxNorm: 464377 45 Unit(s) SQ QAM No Start Date 05/20/2018 Inactive aspirin 81 mg tablet RxNorm: 290682 1 Tablet(s) PO QD No Start Date 0 09/14/2015 Inactive diltiazem CD 240 mg capsule,extended release 24 hr RxNorm: 8 56769 1 Capsule(s) PO QD No Start Date 05/25/2019 Inactive insulin NPH isophane U-100 human subcutaneous RxNorm: 691177 beckwith bcutaneous No Start Date 04/20/2019 Inactive sumatriptan 100 mg tablet RxNorm: 089926 1 Tablet(s) PO at headache onset. May repeat 1 in two hours if headache remains. Max of 2 per 24 hours No Start Date 04/01/2018 Inactive gabapentin 300 mg capsule RxNorm: 170436 1 Capsule(s) PO QHS No Sta rt Date 02/04/2018 Inactive Topamax 25 mg Tab RxNorm: 039429 Oral No Start Date 03/07/2011 In active Senokot-S 8.6 mg-50 mg Tab RxNorm: 8699697 1 Tablet(s) PO QD No Sta rt Date 03/07/2011 Inactive metformin ER 500 mg 24 hr tablet,extended release RxNorm: 18 93224 1 Tablet(s) PO QD No Start Date 05/20/2018 Inactive Symbicort 80 mcg-4.5 mcg/actuation HFA Aerosol Inhaler RxNor m: 3345353 2 Puff(s) INH BID No Start Date 04/05/2013 Inactive metoprolol tartrate 25 mg tablet RxNorm: 163081 1 Tablet(s) PO BID No Start Date 05/20/2019 Inactive propranolol 60 mg Tab RxNorm: 358124 1/2 Tablet(s) PO BID No Start Date 07/21/2012 Inactive metformin ER 500 mg 24 hr tablet,extended release RxNorm: 18 67164 2 Tablet(s) PO QD No Start Date 12/16/2017 Inactive Insulin Syringe 1 mL 29 gauge x 1/2" RxNorm: 2 s yringes daily with insulin Dx: E11.65 No Start Date 10/07/2018 Inactive Amitriptyline 75 mg Tab RxNorm: 123689 1 Tablet(s) PO QHS No Start Date 10/23/2009 Inactive donepezil 10 mg Tab RxNorm: 275295 1 Tablet(s) PO QD No Start Date Inactive Lantus Solostar U-100 Insulin 100 unit/mL (3 mL) subcu taneous pen RxNorm: 006778 36 Unit(s) SQ QAM No Start Date 12/24/2017 Inactive Miacalcin 200 unit/Actuation Nasal [place] Aerosol RxNorm: 261 204 1 [place] NASAL QD Alternate nostrils each day No Start Date 04/05/2010 Inactive Amitriptyline 150 mg Tab RxNorm: 492979 1 Tablet(s) PO QHS No Start Date 01/04/2010 Inactive Bystolic 5 mg tablet RxNorm: 318994 1 Tablet(s) PO QD No Start Date 0 08/13/2012 Inactive Aricept 10 mg Tab RxNorm: 920194 1 Tablet(s) PO QD No Start Date 11/03 Inactive Lantus Solostar U-100 Insulin 100 unit/mL (3 mL) subcu taneous pen RxNorm: 176817 50 Unit(s) SQ QAM No Start Date 08/27/2018 Inactive albuterol sulfate 2.5 mg/3 mL (0.083 %) Neb Solution RxNorm: 412783 1 Unit Dose INH QID as needed No Start Date 08/23/2015 Inactive Symbicort 160 mcg-4.5 mcg/actuation HFA Aerosol Inhaler RxNo rm: 0526971 2 Puff(s) INH BID No Start Date 12/03/2011 Inactive Savella 50 mg Tab RxNorm: 120655 1 Tablet(s) PO BID No Start Date 04/2010 Inactive amitriptyline 100 mg Tab RxNorm: 151737 1 1/2 Tablet(s) PO QHS No S tart Date 06/19/2011 Inactive nystatin 100,000 unit/g Topical Cream RxNorm: 689078 Ap plication TOP BID to rash for 2-4 weeks No Start Date 01/14/2011 Inactive Trelegy Ellipta 100 mcg-62.5 mcg-25 mcg powder for inhalatio n RxNorm: 2589588 1 Puff(s) INH QD No Start Date 12/16/2017 Inactive Lyrica 150 mg capsule RxNorm: 377890 1 Capsule(s) PO QHS No Start D ate 12/04/2015 Inactive sennosides 8.6 mg tablet RxNorm: 063053 1 Tablet(s) PO BID No Start Date 09/07/2018 Inactive metformin ER 500 mg tablet,extended release 24 hr RxNorm: 86 0975 1 Tablet(s) PO QD No Start Date 10/22/2017 Inactive Fish Oil 1,000 mg Cap RxNorm: 1 Capsule(s) PO QD No Start Date 06/2011 Inactive Zyrtec 10 mg Tab RxNorm: 0951793 1 Tablet(s) PO QD No Start Date 07/03 Inactive albuterol sulfate HFA 90 mcg/actuation aerosol inhaler RxNor m: 8414624 2 Puff(s) INH Q4H as needed for cough No Start Date 09/30/2013 Inactive trazodone 150 mg tablet RxNorm: 071799 1 Tablet(s) PO QHS No Start Date 07/21/2012 Inactive Spiriva with HandiHaler 18 mcg & inhalation capsules RxNorm: 706523 1 Capsule(s) INH QD No Start Date 04/05/2013 Inactive Coreg 3.125 mg Tab RxNorm: 678661 1 Tablet(s) PO BID No Start Date Inactive Phenergan 25 mg Tab RxNorm: 009760 Tablet(s) PO PRN MIGRAINE No Sta rt Date 11/21/2009 Inactive Vitamin D 50,000 unit Cap RxNorm: 6853077 1 Capsule(s) PO QW No Sta rt Date 03/07/2011 Inactive Januvia 100 mg tablet RxNorm: 849777 1 Tablet(s) PO QD No Start Date 10/25/2015 Inactive Eliquis 5 mg tablet RxNorm: 7358678 1 Tablet(s) PO BID No Start Date 08/19/2018 Inactive Advair Diskus 500 mcg-50 mcg/Dose for Inhalation RxNorm: 130925 1 INH BID No Start Date 07/21/2012 Inactive Vitamin D3 5,000 unit tablet RxNorm: 482884 1 Tablet(s) PO QD No St art Date 07/18/2017 Inactive Amaryl 2 mg tablet RxNorm: 911219 1 Tablet(s) PO QD No Start Date 06/2015 Inactive Actos 30 mg tablet RxNorm: 821826 1 Tablet(s) PO QD No Start Date Inactive promethazine 25 mg tablet RxNorm: 674157 1 Tablet(s) PO Q4H prn N/V No Start Date 07/21/2012 Inactive ProAir HFA 90 mcg/actuation Aerosol Inhaler RxNorm: 961993 2 Puff(s) INH Q4H prn dyspnea No Start Date 07/21/2012 Inactive Dexilant 60 mg Capsule RxNorm: 965366 1 Capsule(s) PO QD No Start D ate 01/27/2012 Inactive Lantus Solostar U-100 Insulin 100 unit/mL (3 mL) subcu taneous pen RxNorm: 224811 38 Unit(s) SQ QAM No Start Date 05/20/2018 Inactive Valium 10 mg Tab RxNorm: 103747 1 Tablet(s) PO QHS AND PRN No Start Date 10/24/2009 Inactive ZOFRAN ODT 8 mg disintegrating tablet RxNorm: 139676 1 Tablet(s ) PO Q6H No Start [...] Date S ervice Location MICROALBUMIN URINE RANDOM 51981 MICRL MG/L 14.9 MG/L Unknown MICROALBUMIN URINE RANDOM 52659 XM.ALB/CRE 6.1 MG/GCR Unknown MICROALBUMIN URINE RANDOM 22774 CREAT MG/D 243 MG/DL Unknown MICROALBUMIN URINE RANDOM 96371 CRE/100 2.43 G/L 03/05 Unknown PROTEIN/CREAT URINE WITH RATIO 70185|84252 PROT R U 14 MG/D L 04/01/2014 Unknown PROTEIN/CREAT URINE WITH RATIO 67030|74031 CREAT R U 254 MG/ DL 04/01/2014 Unknown PROTEIN/CREAT URINE WITH RATIO 60647|18506 XRATIO P/C 55 MG/ G 04/01/2014 Unknown URINALYSIS 41560 PROTEIN UR NEG 04/28/2010 Unknown URINALYSIS 61091 HEMGLBN UR NEG 04/28/2010 Unknown URINALYSIS 40277 GLUCOSE UR NEG 04/28/2010 Unknown URINALYSIS 36041 KETONES UR NEG 04/28/2010 Unknown URINALYSIS 60465 PH U 5.5 04/28/2010 Unknown URINALYSIS 52552 SP GR U 1.025 04/28/2010 Unknown URINALYSIS 19603 BILRUBN UR NEG 04/28/2010 Unknown URINALYSIS 82017 LEUKO UR 2+ 04/28/2010 Unknown URINALYSIS 33057 NITRITE UR NEG 04/28/2010 Unknown MICR CUL? [id number] WBC/HPF 6-10 04/28/2010 Unknown MICR CUL? [id number] RBC/HPF 0-5 04/28/2010 Unknown MICR CUL? [id number] HYAL CAST 16-25 04/28/2010 Unknown MICR CUL? [id number] SP TO YOLIE? NO 04/28/2010 Unknown MICR CUL? [id number] APPEAR UR NORMAL 04/28/2010 Unknown MICR CUL? [id number] SQ EPI/LPF FEW 04/28/2010 Unknown Procedures Procedure Codes Date URINALYSIS NONAUTO W/O SCOPE CPT-4: 54481 04/16/2019 URINE CULTURE/ COLONY COUNT CPT-4: 71035 04/16/2019 CEFTRIAXONE SODIUM INJECTION CPT-4: J0696 04/16/2019 THER/PROPH/DIAG INJ SC/IM CPT-4: 23398 04/16/2019 DRAIN/INJECT JOINT/BURSA CPT-4: 46952 01/22/2019 TRIAMCINOLONE ACET INJ NOS CPT-4: J3301 01/22/2019 DEXAMETHASONE SODIUM PHOS CPT-4: J1100 01/22/2019 URINE CULTURE/ COLONY COUNT CPT-4: 13061 01/07/2019 URINALYSIS NONAUTO W/O SCOPE CPT-4: 48149 01/07/2019 CEFTRIAXONE SODIUM INJECTION CPT-4: J0696 01/07/2019 THER/PROPH/DIAG INJ SC/IM CPT-4: 74685 01/07/2019 FLU VACC PRSV FREE INC ANTIG 65 AND OLDER CPT-4: 20761 12/24/2018 FLU VACC PRSV FREE INC ANTIG 65 AND OLDER CPT-4: 85868 12/24/2018 ADMIN INFLUENZA VIRUS VAC CPT-4: G0008 12/24/2018 THER/PROPH/DIAG INJ SC/IM CPT-4: 26777 11/04/2018 KETOROLAC TROMETHAMINE INJ CPT-4: J1885 11/04/2018 PROMETHAZINE HCL INJECTION CPT-4: J2550 11/04/2018 PPPS, subseq visit CPT-4: G0439 09/18/2018 THER/PROPH/DIAG INJ SC/IM CPT-4: 02521 04/01/2018 KETOROLAC TROMETHAMINE INJ CPT-4: J1885 04/01/2018 PROMETHAZINE HCL INJECTION CPT-4: J2550 04/01/2018 URINE CULTURE/ COLONY COUNT CPT-4: 61447 03/17/2018 URINALYSIS NONAUTO W/O SCOPE CPT-4: 19401 03/17/2018 FLU VACC PRSV FREE INC ANTIG 65 AND OLDER CPT-4: 62134 12/17/2017 PNEUMOCOCCAL VACC 23 RANDALL IM CPT-4: 28380 12/17/2017 ADMIN INFLUENZA VIRUS VAC CPT-4: G0008 12/17/2017 ADMIN PNEUMOCOCCAL VACCINE CPT-4: G0009 12/17/2017 PPPS, subseq visit CPT-4: G0439 09/17/2017 THER/PROPH/DIAG INJ SC/IM CPT-4: 36472 08/26/2017 KETOROLAC TROMETHAMINE INJ CPT-4: J1885 08/26/2017 PROMETHAZINE HCL INJECTION CPT-4: J2550 08/26/2017 URINALYSIS NONAUTO W/O SCOPE CPT-4: 70660 07/19/2017 URINE CULTURE/ COLONY COUNT CPT-4: 73986 07/19/2017 CEFTRIAXONE SODIUM INJECTION CPT-4: J0696 07/19/2017 THER/PROPH/DIAG INJ SC/IM CPT-4: 87661 07/19/2017 THER/PROPH/DIAG INJ SC/IM CPT-4: 66507 07/19/2017 TRIAMCINOLONE ACET INJ NOS CPT-4: J3301 07/19/2017 PRESCRIP TRANSMIT VIA ERX SY CPT-4: G8553 05/07/2017 PRESCRIP TRANSMIT VIA ERX SY CPT-4: G8553 02/22/2017 PRESCRIP TRANSMIT VIA ERX SY CPT-4: G8553 01/23/2017 FLU VACC PRSV FREE INC ANTIG 65 AND OLDER CPT-4: 88617 12/20/2016 PNEUMOCOCCAL VACC 13 RANDALL IM CPT-4: 03214 12/20/2016 ADMIN INFLUENZA VIRUS VAC CPT-4: G0008 12/20/2016 ADMIN PNEUMOCOCCAL VACCINE CPT-4: G0009 12/20/2016 URINALYSIS NONAUTO W/O SCOPE CPT-4: 41650 10/08/2016 URINE CULTURE/ COLONY COUNT CPT-4: 61678 10/08/2016 PRESCRIP TRANSMIT VIA ERX SY CPT-4: G8553 10/08/2016 PRESCRIP TRANSMIT VIA ERX SY CPT-4: G8553 09/19/2016 PRESCRIP TRANSMIT VIA ERX SY CPT-4: G8553 08/20/2016 PRESCRIP TRANSMIT VIA ERX SY CPT-4: G8553 02/29/2016 KETOROLAC TROMETHAMINE INJ CPT-4: J1885 02/02/2016 THER/PROPH/DIAG INJ SC/IM CPT-4: 28212 02/02/2016 PROMETHAZINE HCL INJECTION CPT-4: J2550 02/02/2016 PRESCRIP TRANSMIT VIA ERX SY CPT-4: G8553 02/02/2016 FLU VACC PRSV FREE INC ANTIG 65 AND OLDER CPT-4: 94807 01/05/2016 PPPS, subseq visit CPT-4: G0439 01/05/2016 ADMIN INFLUENZA VIRUS VAC CPT-4: G0008 01/05/2016 URINE CULTURE/ COLONY COUNT CPT-4: 67551 12/05/2015 URINALYSIS NONAUTO W/O SCOPE CPT-4: 89800 12/05/2015 PRESCRIP TRANSMIT VIA ERX SY CPT-4: G8553 12/05/2015 PRESCRIP TRANSMIT VIA ERX SY CPT-4: G8553 10/26/2015 URINALYSIS NONAUTO W/O SCOPE CPT-4: 58839 10/05/2015 URINE CULTURE/ COLONY COUNT CPT-4: 79480 10/05/2015 PRESCRIP TRANSMIT VIA ERX SY CPT-4: G8553 10/05/2015 SERVICE REQUIRED FOR PMD CPT-4: G0372 09/15/2015 PRESCRIP TRANSMIT VIA ERX SY CPT-4: G8553 09/15/2015 SPECIAL REPORTS OR FORMS CPT-4: 37948 08/25/2015 PRESCRIP TRANSMIT VIA ERX SY CPT-4: G8553 07/05/2015 URINALYSIS NONAUTO W/O SCOPE CPT-4: 47147 03/30/2015 ASSAY, GLUCOSE, BLOOD QUANT CPT-4: 96231 03/30/2015 URINE CULTURE/ COLONY COUNT CPT-4: 61538 03/30/2015 PRESCRIP TRANSMIT VIA ERX SY CPT-4: G8553 03/30/2015 PRESCRIP TRANSMIT VIA ERX SY CPT-4: G8553 02/03/2015 FLU VACC PRSV FREE INC ANTIG 65 AND OLDER CPT-4: 09596 12/29/2014 ADMIN INFLUENZA VIRUS VAC CPT-4: G0008 12/29/2014 PRESCRIP TRANSMIT VIA ERX SY CPT-4: G8553 12/29/2014 PRESCRIP TRANSMIT VIA ERX SY CPT-4: G8553 09/02/2014 PROTEIN/CREAT URINE WITH RATIO CPT-4: 72245|78192 5 MICROALBUMIN QUANTITATIVE CPT-4: 90254 04/01/2014 PRESCRIP TRANSMIT VIA ERX SY CPT-4: G8553 03/16/2014 PRESCRIP TRANSMIT VIA ERX SY CPT-4: G8553 03/09/2014 THER/PROPH/DIAG INJ SC/IM CPT-4: 62826 03/01/2014 TRIAMCINOLONE ACET INJ NOS CPT-4: J3301 03/01/2014 PRESCRIP TRANSMIT VIA ERX SY CPT-4: G8553 02/09/2014 URINE CULTURE/ COLONY COUNT CPT-4: 58364 10/30/2013 URINALYSIS NONAUTO W/O SCOPE CPT-4: 78871 10/21/2013 URINE CULTURE/ COLONY COUNT CPT-4: 48740 10/21/2013 DESTRUCT PREMALG LESION (Cryosurgery) CPT-4: 89646 PRESCRIP TRANSMIT VIA ERX SY CPT-4: G8553 10/05/2013 URINALYSIS NONAUTO W/O SCOPE CPT-4: 02642 08/04/2013 URINE CULTURE/ COLONY COUNT CPT-4: 57396 08/04/2013 PRESCRIP TRANSMIT VIA ERX SY CPT-4: G8553 08/04/2013 THER/PROPH/DIAG INJ SC/IM CPT-4: 74871 07/13/2013 TRIAMCINOLONE ACET INJ NOS CPT-4: J3301 07/13/2013 PRESCRIP TRANSMIT VIA ERX SY CPT-4: G8553 05/27/2013 URINALYSIS NONAUTO W/O SCOPE CPT-4: 57287 05/25/2013 URINE CULTURE/ COLONY COUNT CPT-4: 53266 05/25/2013 THER/PROPH/DIAG INJ SC/IM CPT-4: 33317 05/04/2013 VITAMIN B12 INJECTION CPT-4: J3420 05/04/2013 THER/PROPH/DIAG INJ SC/IM CPT-4: 54122 04/17/2013 VITAMIN B12 INJECTION CPT-4: J3420 04/17/2013 THER/PROPH/DIAG INJ SC/IM CPT-4: 43251 04/17/2013 METHYLPREDNISOLONE 40 MG INJ CPT-4: J1030 04/17/2013 TRIAMCINOLONE ACET INJ NOS CPT-4: J3301 04/17/2013 URINALYSIS NONAUTO W/O SCOPE CPT-4: 31377 04/06/2013 URINE CULTURE/ COLONY COUNT CPT-4: 88903 04/06/2013 PRESCRIP TRANSMIT VIA ERX SY CPT-4: G8553 04/06/2013 KETOROLAC TROMETHAMINE INJ CPT-4: J1885 06/25/2012 PROMETHAZINE HCL INJECTION CPT-4: J2550 06/25/2012 THER/PROPH/DIAG INJ SC/IM CPT-4: 21505 06/25/2012 THER/PROPH/DIAG INJ SC/IM CPT-4: 32568 06/24/2012 METHYLPREDNISOLONE 40 MG INJ CPT-4: J1030 06/24/2012 TRIAMCINOLONE ACET INJ NOS CPT-4: J3301 06/24/2012 URINE CULTURE/ COLONY COUNT CPT-4: 80740 06/24/2012 THER/PROPH/DIAG INJ SC/IM CPT-4: 13934 05/20/2012 KETOROLAC TROMETHAMINE INJ CPT-4: J1885 05/20/2012 THER/PROPH/DIAG INJ SC/IM CPT-4: 85250 05/20/2012 PROMETHAZINE HCL INJECTION CPT-4: J2550 05/20/2012 DRAIN/INJECT JOINT/BURSA CPT-4: 94445 02/13/2012 METHYLPREDNISOLONE 40 MG INJ CPT-4: J1030 02/13/2012 TRIAMCINOLONE ACET INJ NOS CPT-4: J3301 02/13/2012 THER/PROPH/DIAG INJ SC/IM CPT-4: 41166 11/14/2011 METHYLPREDNISOLONE 40 MG INJ CPT-4: J1030 11/14/2011 TRIAMCINOLONE ACET INJ NOS CPT-4: J3301 11/14/2011 THER/PROPH/DIAG INJ SC/IM CPT-4: 25642 09/12/2011 KETOROLAC TROMETHAMINE INJ CPT-4: J1885 09/12/2011 THER/PROPH/DIAG INJ SC/IM CPT-4: 25175 08/09/2011 METHYLPREDNISOLONE 40 MG INJ CPT-4: J1030 08/09/2011 TRIAMCINOLONE ACET INJ NOS CPT-4: J3301 08/09/2011 URINE CULTURE/ COLONY COUNT CPT-4: 74537 07/03/2011 URINE CULTURE/ COLONY COUNT CPT-4: 03413 06/04/2011 THER/PROPH/DIAG INJ SC/IM CPT-4: 59289 05/03/2011 METHYLPREDNISOLONE 40 MG INJ CPT-4: J1030 05/03/2011 TRIAMCINOLONE ACET INJ NOS CPT-4: J3301 05/03/2011 URINALYSIS NONAUTO W/O SCOPE CPT-4: 82190 01/24/2011 URINE CULTURE/ COLONY COUNT CPT-4: 64871 01/24/2011 FLUZONE, 5ML (Medicare) CPT-4: Q2038 01/02/2011 ADMIN INFLUENZA VIRUS VAC CPT-4: G0008 01/02/2011 ASSAY, GLUCOSE, BLOOD QUANT CPT-4: 66583 12/07/2010 URINE CULTURE/ COLONY COUNT CPT-4: 97591 11/02/2010 THER/PROPH/DIAG INJ SC/IM CPT-4: 55655 10/18/2010 METHYLPREDNISOLONE 40 MG INJ CPT-4: J1030 10/18/2010 TRIAMCINOLONE ACET INJ NOS CPT-4: J3301 10/18/2010 TRIAMCINOLONE ACET INJ NOS CPT-4: J3301 05/11/2010 METHYLPREDNISOLONE 40 MG INJ CPT-4: J1030 05/11/2010 THER/PROPH/DIAG INJ SC/IM CPT-4: 68461 05/11/2010 TRIAMCINOLONE ACET INJ NOS CPT-4: J3301 02/09/2010 METHYLPREDNISOLONE 40 MG INJ CPT-4: J1030 02/09/2010 THER/PROPH/DIAG INJ SC/IM CPT-4: 41405 02/09/2010 SERVICE REQUIRED FOR PMD CPT-4: G0372 02/09/2010 FLU VACCINE 3 YRS & > IM UP 64 CPT-4: 53975 0 PNEUMOCOCCAL VACC 23 RANDALL IM CPT-4: 71318 12/07/2009 ADMIN INFLUENZA VIRUS VAC CPT-4: G0008 12/07/2009 ADMIN PNEUMOCOCCAL VACCINE CPT-4: G0009 12/07/2009 TRIAMCINOLONE ACET INJ NOS CPT-4: J3301 05/26/2009 THER/PROPH/DIAG INJ SC/IM CPT-4: 85705 05/26/2009 METHYLPREDNISOLONE 80 MG INJ CPT-4: J1040 [...] 1: 114/72 Code: 8480-6 BMI: 37.8 Code: 31054-8 Heart Rate 1: 72 bpm Height: 5'3" [...] 1: 106/68 Code: 8480-6 BMI: 35.7 Code: 32208-6 Heart Rate 1: 72 bpm Height: 5'4" Respiratory Rate: 20 bpm SpO2: 98% Tempera ture: 36.7 (C) / 98.0 (F) Weight: 208 lbs 04/16/2018 Blood Pressure 1: 132/82 Code: 8480-6 BMI: 37.9 Code: 50307-5 Heart Rate 1: 72 bpm Height: 5'4" Respiratory Rate: 20 bpm SpO2: 96% Tempera ture: 37.1 (C) / 98.8 (F) Weight: 221 lbs 04/01/2018 Blood Pressure 1: 150/90 Code: 8480-6 Heart Rate 1: 72 bpm Respiratory Rate: 22 bpm SpO2: 95% Temperature: 36.4 (C) / 97.6 (F) We ight: 216 lbs 03/06/2018 Blood Pressure 1: 126/78 Code: 8480-6 BMI: 37.4 Code: 96748-3 Heart Rate 1: 68 bpm Height: 5'4" [...] ight: 222 lbs 12/25/2017 BMI: 37.8 Code: 23613-5 Heart Rate 1: 76 bpm Height: 5 '4" Respiratory Rate: 20 bpm SpO2: 96% Temperature: 37.3 (C) / 99.2 (F) Weight: 220 lbs 12/17/2017 Blood Pressure 1: 132/78 Code: 8480-6 BMI: 37.2 Code: 79690-2 Heart Rate 1: 88 bpm Height: 5'4" Respiratory Rate: 20 bpm SpO2: 96% Tempera ture: 37.3 (C) / 99.2 (F) Weight: 217 lbs 10/30/2017 Blood Pressure 1: 114/68 Code: 8480-6 BMI: 36.4 Code: 38305-1 Heart Rate 1: 72 bpm Height: 5'4" Respiratory Rate: 22 bpm SpO2: 96% Tempera ture: 36.8 (C) / 98.2 (F) Weight: 212 lbs 10/23/2017 Blood Pressure 1: 124/78 Code: 8480-6 Heart Rate 1: 72 bpm Respiratory Rate: 24 bpm SpO2: 94% Temperature: 36.6 (C) / 97.9 (F) We ight: 212 lbs 09/17/2017 Blood Pressure 1: 128/82 Code: 8480-6 BMI: 37.4 Code: 58871-6 Heart Rate 1: 72 bpm Height: 5'4" Respiratory Rate: 20 bpm SpO2: 96% Tempera ture: 37.0 (C) / 98.6 (F) Weight: 218 lbs 07/19/2017 Blood Pressure 1: 136/84 Code: 8480-6 BMI: 36.6 Code: 18749-3 Heart Rate 1: 88 bpm Height: 5'4" Respiratory Rate: 20 bpm SpO2: 97% Tempera ture: 36.7 (C) / 98.0 (F) Weight: 213 lbs 05/29/2017 Blood Pressure 1: 136/82 Code: 8480-6 BMI: 36.7 Code: 36469-4 Heart Rate 1: 72 bpm Height: 5'4" Respiratory Rate: 20 bpm SpO2: 97% Tempera ture: 36.9 (C) / 98.4 (F) Weight: 214 lbs 05/07/2017 Blood Pressure 1: 122/80 Code: 8480-6 BMI: 37.1 Code: 35958-2 Heart Rate 1: 80 bpm Height: 5'4" Respiratory Rate: 24 bpm SpO2: 96% Tempera ture: 36.1 (C) / 97.0 (F) Weight: 216 lbs 03/18/2017 BMI: 36.7 Code: 97925-8 Heart Rate 1: 80 bpm Height: 5 '4" Respiratory Rate: 22 bpm SpO2: 95% Temperature: 36.9 (C) / 98.4 (F) Weight: 214 lbs 02/27/2017 Blood Pressure 1: 146/94 Code: 8480-6 BMI: 36.6 Code: 88342-0 Heart Rate 1: 76 bpm Height: 5'4" Respiratory Rate: 22 bpm SpO2: 97% Tempera ture: 36.6 (C) / 97.9 (F) Weight: 213 lbs 02/22/2017 Blood Pressure 1: 126/90 Code: 8480-6 BMI: 36.4 Code: 81022-0 Heart Rate 1: 84 bpm Height: 5'4" Respiratory Rate: 22 bpm SpO2: 95% Tempera ture: 36.9 (C) / 98.4 (F) Weight: 212 lbs 01/23/2017 Blood Pressure 1: 146/82 Code: 8480-6 BMI: 37.6 Code: 50674-1 Heart Rate 1: 96 bpm Height: 5'4" Respiratory Rate: 20 bpm SpO2: 96% Tempera ture: 36.9 (C) / 98.4 (F) Weight: 219 lbs 12/20/2016 Blood Pressure 1: 126/70 Code: 8480-6 BMI: 37.2 Code: 34124-5 Heart Rate 1: 76 bpm Height: 5'4" Respiratory Rate: 22 bpm SpO2: 95% Tempera ture: 36.6 (C) / 97.8 (F) Weight: 217 lbs 10/08/2016 Blood Pressure 1: 128/82 Code: 8480-6 BMI: 36.9 Code: 05865-4 Heart Rate 1: 76 bpm Height: 5'4" Respiratory Rate: 20 bpm SpO2: 95% Tempera ture: 37.0 (C) / 98.6 (F) Weight: 215 lbs 09/19/2016 Blood Pressure 1: 144/78 Code: 8480-6 BMI: 37.8 Code: 54658-2 Heart Rate 1: 76 bpm Height: 5'4" Respiratory Rate: 22 bpm SpO2: 95% Tempera ture: 37.0 (C) / 98.6 (F) Weight: 220 lbs 08/20/2016 Blood Pressure 1: 140/86 Code: 8480-6 BMI: 37.4 Code: 10528-7 Heart Rate 1: 80 bpm Height: 5'4" Respiratory Rate: 20 bpm SpO2: 95% Tempera ture: 36.9 (C) / 98.4 (F) Weight: 218 lbs 06/19/2016 Blood Pressure 1: 124 Code: 8480-6 BMI: 37.8 Code: 71066-1 Heart Rate 1: 74 bpm Height: 5'4" Respiratory Rate: 24 bpm SpO2: 96% Tempera ture: 36.9 (C) / 98.4 (F) Weight: 220 lbs 06/04/2016 Blood Pressure 1: 124 Code: 8480-6 BMI: 38.8 Code: 14875-5 Heart Rate 1: 72 bpm Height: 5'4" Respiratory Rate: 24 bpm SpO2: 95% Tempera ture: 36.8 (C) / 98.2 (F) Weight: 226 lbs 05/02/2016 Blood Pressure 1: 136/90 Code: 8480-6 BMI: 37.6 Code: 64731-7 Heart Rate 1: 72 bpm Height: 5'4" Respiratory Rate: 24 bpm SpO2: 96% Tempera ture: 36.9 (C) / 98.4 (F) Weight: 219 lbs 04/03/2016 Blood Pressure 1: 12678 Code: 8480-6 BMI: 38.1 Code: 85450-1 Heart Rate 1: 72 bpm Height: 5'4" Respiratory Rate: 22 bpm SpO2: 94% Tempera ture: 36.9 (C) / 98.4 (F) Weight: 222 lbs 02/29/2016 Blood Pressure 1: 132/78 Code: 8480-6 Heart Rate 1: 78 bpm Height: Respiratory Rate: 24 bpm SpO2: 95% Temperature: 36.4 (C) / 97.6 (F) We ight: 02/02/2016 Blood Pressure 1: 124 Code: 8480-6 BMI: 37.6 Code: 55661-5 Heart Rate 1: 76 bpm Height: 5'4" Respiratory Rate: 20 bpm SpO2: 95% Tempera ture: 36.8 (C) / 98.2 (F) Weight: 219 lbs 01/05/2016 Blood Pressure 1: 126/70 Code: 8480-6 BMI: 37.1 Code: 95104-2 Heart Rate 1: 76 bpm Height: 5'4" Respiratory Rate: 20 bpm Temperature: 36 .6 (C) / 97.8 (F) Weight: 216 lbs 12/05/2015 Blood Pressure 1: 126/72 Code: 8480-6 BMI: 36.9 Code: 51372-2 Heart Rate 1: 92 bpm Height: 5'4" Respiratory Rate: 20 bpm Temperature: 36 .7 (C) / 98.1 (F) Weight: 215 lbs 10/26/2015 Blood Pressure 1: 142/80 Code: 8480-6 BMI: 36.4 Code: 84947-4 Heart Rate 1: 82 bpm Height: 5'4" Respiratory Rate: 24 bpm SpO2: 92% Tempera ture: 35.9 (C) / 96.7 (F) Weight: 212 lbs 10/05/2015 Blood Pressure 1: 136/82 Code: 8480-6 Heart Rate 1: 80 bpm Respiratory Rate: 18 bpm SpO2: 98% Temperature: 35.7 (C) / 96.3 (F) We ight: 214 lbs 09/15/2015 Blood Pressure 1: 116/80 Code: 8480-6 BMI: 34.6 Code: 76757-7 Heart Rate 1: 76 bpm Height: 5'6" Respiratory Rate: 20 bpm Temperature: 36 .6 (C) / 97.9 (F) Weight: 211 lbs 08/24/2015 Blood Pressure 1: 124/80 Code: 8480-6 BMI: 34.1 Code: 12681-0 Heart Rate 1: 68 bpm Height: 5'6" Respiratory Rate: 20 bpm Temperature: 36 .8 (C) / 98.3 (F) Weight: 208 lbs 07/05/2015 Blood Pressure 1: 114/78 Code: 8480-6 BMI: 33.9 Code: 07258-4 Heart Rate 1: 80 bpm Height: 5'6" Respiratory Rate: 20 bpm Temperature: 36 .6 (C) / 97.9 (F) Weight: 207 lbs 06/06/2015 Blood Pressure 1: 122/78 Code: 8480-6 BMI: 34.1 Code: 29149-5 Heart Rate 1: 76 bpm Height: 5'6" Respiratory Rate: 24 bpm SpO2: 96% Tempera ture: 36.4 (C) / 97.6 (F) Weight: 208 lbs 05/23/2015 Blood Pressure 1: 124/78 Code: 8480-6 Heart Rate 1: 76 bpm Respiratory Rate: 24 bpm SpO2: 93% Temperature: 36.8 (C) / 98.2 (F) We ight: 212 lbs 05/05/2015 Blood Pressure 1: 136/80 Code: 8480-6 BMI: 35.4 Code: 50064-3 Heart Rate 1: 76 bpm Height: 5'6" Respiratory Rate: 28 bpm Temperature: 37 .0 (C) / 98.6 (F) Weight: 216 lbs 03/30/2015 Blood Pressure 1: 132/86 Code: 8480-6 BMI: 35.2 Code: 60296-1 Heart Rate 1: 84 bpm Height: 5'6" Respiratory Rate: 24 bpm Temperature: 36 .7 (C) / 98.0 (F) Weight: 215 lbs 02/03/2015 Blood Pressure 1: 122/74 Code: 8480-6 BMI: 35.7 Code: 08377-8 Heart Rate 1: 84 bpm Height: 5'6" Respiratory Rate: 20 bpm Temperature: 36 .9 (C) / 98.5 (F) Weight: 218 lbs 12/29/2014 Blood Pressure 1: 132/80 Code: 8480-6 BMI: 35.1 Code: 85383-8 Heart Rate 1: 80 bpm Height: 5'6" Respiratory Rate: 20 bpm Temperature: 36 .6 (C) / 97.8 (F) Weight: 214 lbs 09/02/2014 Blood Pressure 1: 128/92 Code: 8480-6 BMI: 34.7 Code: 14493-0 Heart Rate 1: 84 bpm Height: 5'6" Respiratory Rate: 26 bpm Temperature: 36 .8 (C) / 98.2 (F) Weight: 212 lbs 08/25/2014 Blood Pressure 1: 124/80 Code: 8480-6 BMI: 34.7 Code: 76953-5 Heart Rate 1: 78 bpm Height: 5'6" Respiratory Rate: 22 bpm SpO2: 97% Tempera ture: 36.6 (C) / 97.8 (F) Weight: 212 lbs 04/01/2014 Blood Pressure 1: 142/84 Code: 8480-6 BMI: 34.4 Code: 34515-0 Heart Rate 1: 74 bpm Height: 5'5" Respiratory Rate: 20 bpm Temperature: 36 .4 (C) / 97.6 (F) Weight: 207 lbs 03/16/2014 Blood Pressure 1: 142/90 Code: 8480-6 BMI: 34.6 Code: 49351-4 Heart Rate 1: 76 bpm Height: 5'5" Respiratory Rate: 24 bpm Temperature: 36 .5 (C) / 97.7 (F) Weight: 208 lbs 03/09/2014 Blood Pressure 1: 116/70 Code: 8480-6 BMI: 35.3 Code: 17827-1 Heart Rate 1: 72 bpm Height: 5'5" [...] 1: 128/86 Code: 8480-6 BMI: 34.3 Code: 49289-2 Heart Rate 1: 84 bpm Height: 5'5" Respiratory Rate: 20 bpm Temperature: 36 .7 (C) / 98.0 (F) Weight: 206 lbs 12/23/2013 Blood Pressure 1: 122/70 Code: 8480-6 BMI: 34.3 Code: 35531-4 Heart Rate 1: 68 bpm Height: 5'5" Respiratory Rate: 20 bpm Temperature: 36 .8 (C) / 98.2 (F) Weight: 206 lbs 10/05/2013 Blood Pressure 1: 118/76 Code: 8480-6 BMI: 34.1 Code: 41398-5 Heart Rate 1: 68 bpm Height: 5'5" Respiratory Rate: 20 bpm SpO2: 98% Tempera ture: 36.6 (C) / 97.9 (F) Weight: 205 lbs 08/04/2013 Blood Pressure 1: 126/82 Code: 8480-6 BMI: 33.3 Code: 92482-0 Heart Rate 1: 76 bpm Height: 5'5" Respiratory Rate: 20 bpm Temperature: 36 .8 (C) / 98.2 (F) Weight: 200 lbs 07/03/2013 Blood Pressure 1: 124/82 Code: 8480-6 BMI: 33.3 Code: 35164-3 Heart Rate 1: 72 bpm Height: 5'5" Respiratory Rate: 22 bpm Temperature: 36 .1 (C) / 97.0 (F) Weight: 200 lbs 05/27/2013 Blood Pressure 1: 126/82 Code: 8480-6 Heart Rate 1: 74 bpm Respiratory Rate: 20 bpm Temperature: 36.0 (C) / 96.8 (F) Weight: 199 lbs 04/06/2013 Blood Pressure 1: 118/80 Code: 8480-6 BMI: 35.2 Code: 53202-9 Heart Rate 1: 80 bpm Height: 5'4" Respiratory Rate: 20 bpm Temperature: 37 .4 (C) / 99.3 (F) Weight: 205 lbs 11/10/2012 Blood Pressure 1: 12882 Code: 8480-6 Heart Rate 1: 84 bpm Respiratory Rate: 20 bpm Temperature: 36.7 (C) / 98.0 (F) Weight: 199 lbs 09/02/2012 Blood Pressure 1: 116/82 Code: 8480-6 BMI: 34.2 Code: 72645-3 Heart Rate 1: 88 bpm Height: 5'4" Respiratory Rate: 22 bpm Temperature: 36 .6 (C) / 97.8 (F) Weight: 199 lbs 08/04/2012 Blood Pressure 1: 128/74 Code: 8480-6 BMI: 34.0 Code: 07328-5 Heart Rate 1: 92 bpm Height: 5'4" Respiratory Rate: 20 bpm Temperature: 36 .4 (C) / 97.5 (F) Weight: 198 lbs 07/21/2012 Blood Pressure 1: 124/ Code: 8480-6 Heart Rate 1: 116 bpm Respiratory Rate: 24 bpm Temperature: 36.8 (C) / 98.2 (F) 07/02/2012 Blood Pressure 1: 116/88 Code: 8480-6 BMI: 33.6 Code: 46984-5 Heart Rate 1: 76 bpm Height: 5'4" Respiratory Rate: 20 bpm Temperature: 36 .8 (C) / 98.3 (F) Weight: 196 lbs 06/24/2012 Blood Pressure 1: 124/80 Code: 8480-6 BMI: 34.3 Code: 46089-1 Heart Rate 1: 72 bpm Height: 5'4" SpO2: 96% Temperature: 36.3 (C) / 97.3 (F) Weight: 200 lbs 05/20/2012 Blood Pressure 1: 116/88 Code: 8480-6 BMI: 33.8 Code: 94444-7 Heart Rate 1: 80 bpm Height: 5'4" Respiratory Rate: 22 bpm Temperature: 36 .9 (C) / 98.4 (F) Weight: 197 lbs 05/08/2012 Blood Pressure 1: 128/86 Code: 8480-6 BMI: 33.8 Code: 47234-9 Heart Rate 1: 76 bpm Height: 5'4" Respiratory Rate: 26 bpm SpO2: 95% Tempera ture: 36.1 (C) / 97.0 (F) Weight: 197 lbs 04/22/2012 Blood Pressure 1: 106/64 Code: 8480-6 BMI: 33.8 Code: 79438-8 Heart Rate 1: 70 bpm Height: 5'4" Temperature: 36.1 (C) / 97.0 (F) Weight: 197 lbs 02/13/2012 Blood Pressure 1: 126/82 Code: 8480-6 BMI: 34.7 Code: 42555-0 Heart Rate 1: 64 bpm Height: 5'4" Respiratory Rate: 20 bpm Temperature: 36 .6 (C) / 97.8 (F) Weight: 202 lbs 01/28/2012 Blood Pressure 1: 116/80 Code: 8480-6 BMI: 34.7 Code: 45483-6 Heart Rate 1: 76 bpm Height: 5'4" Respiratory Rate: 20 bpm Temperature: 36 .8 (C) / 98.3 (F) Weight: 202 lbs 12/26/2011 Blood Pressure 1: 132/82 Code: 8480-6 BMI: 36.0 Code: 64955-1 Heart Rate 1: 68 bpm Height: 5'4" Respiratory Rate: 22 bpm Temperature: 36 .7 (C) / 98.0 (F) Weight: 210 lbs 11/14/2011 Blood Pressure 1: 124/80 Code: 8480-6 BMI: 36.4 Code: 61461-9 Heart Rate 1: 76 bpm Height: 5'4" Respiratory Rate: 20 bpm Temperature: 36 .8 (C) / 98.2 (F) Weight: 212 lbs 09/12/2011 Blood Pressure 1: 108/74 Code: 8480-6 BMI: 37.1 Code: 32436-2 Heart Rate 1: 72 bpm Height: 5'4" Respiratory Rate: 20 bpm Temperature: 37 .0 (C) / 98.6 (F) Weight: 216 lbs 08/15/2011 Blood Pressure 1: 122/80 Code: 8480-6 BMI: 36.9 Code: 77123-3 Heart Rate 1: 76 bpm Height: 5'4" Respiratory Rate: 20 bpm Temperature: 36 .2 (C) / 97.1 (F) Weight: 215 lbs 08/09/2011 Blood Pressure 1: 112/78 Code: 8480-6 BMI: 36.9 Code: 54501-9 Heart Rate 1: 68 bpm Height: 5'4" Respiratory Rate: 20 bpm Temperature: 36 .7 (C) / 98.0 (F) Weight: 215 lbs 07/03/2011 Blood Pressure 1: 140/94 Code: 8480-6 BMI: 36.2 Code: 38211-3 Heart Rate 1: 68 bpm Height: 5'4" Temperature: 36.0 (C) / 96.8 (F) Weight: 211 lbs 06/04/2011 Blood Pressure 1: 124/70 Code: 8480-6 BMI: 36.7 Code: 92372-6 Heart Rate 1: 68 bpm Height: 5'4" Respiratory Rate: 20 bpm Temperature: 36 .6 (C) / 97.9 (F) Weight: 214 lbs 05/03/2011 Blood Pressure 1: 130/76 Code: 8480-6 BMI: 36.4 Code: 89062-6 Heart Rate 1: 74 bpm Height: 5'5" Temperature: 36.2 (C) / 97.2 (F) Weight: 219 lbs 04/05/2011 Blood Pressure 1: 124/86 Code: 8480-6 BMI: 35.9 Code: 14693-8 Heart Rate 1: 76 bpm Height: 5'6" Respiratory Rate: 22 bpm Temperature: 36 .3 (C) / 97.3 (F) Weight: 219 lbs 03/08/2011 Blood Pressure 1: 112/78 Code: 8480-6 BMI: 35.1 Code: 43610-2 Heart Rate 1: 80 bpm Height: 5'6" Respiratory Rate: 26 bpm Temperature: 36 .9 (C) / 98.4 (F) Weight: 214 lbs 01/24/2011 Blood Pressure 1: 110/82 Code: 8480-6 BMI: 35.6 Code: 67957-7 Heart Rate 1: 80 bpm Height: 5'6" Temperature: 36.1 (C) / 97.0 (F) Weight: 217 lbs 01/02/2011 Blood Pressure 1: 106/72 Code: 8480-6 BMI: 35.6 Code: 26893-4 Heart Rate 1: 76 bpm Height: 5'6" [...] 1: 120/74 Code: 8480-6 BMI: 35.9 Code: 75567-1 Heart Rate 1: 72 bpm Height: 5'5" Temperature: 36.3 (C) / 97.4 (F) Weight: 216 lbs 09/19/2010 Blood Pressure 1: 124/80 Code: 8480-6 BMI: 35.4 Code: 20383-0 Heart Rate 1: 76 bpm Height: 5'5" [...] 1: 122/78 Code: 8480-6 BMI: 37.4 Code: 62890-3 Heart Rate 1: 84 bpm Height: 5'5" Weight: 225 lbs Functional Status No Functional Status data Reason For Visit Reason For Visit Effective Dates Notes follow up 07/06/2019 Hospital fwup follow up [...] 10/30/2017 follow up 10/23/2017 Hospital fwup from [facility] Annual Checkup 09/17/2017 Wellness Physical fo [...] follow up 10/26/2015 ER visit from at [facility] for COPD Exacerbation follow up 10/05/2015 ER Visit gait abnormality 09/15/2015 Patient requesting kelly pineda paperwork to be filled out disturbances of thinking 08/24/2015 follow up 07/05/2015 4wk fwup follow up 06/06/2015 [facility] cough 05/23/2015 follow up 05/05/2015 dyspnea 03/30/2015 [facility] needs new orde r for O2 abdominal pain 02/03/2015 cyst 12/29/2014 vs abscess follow up 09/02/2014 [facility] [place] headache 08/25/2014 facial drooping follow up 04/01/2014 [...] up 08/04/2012 2wk fwup follow up 07/21/2012 [facility]--[facility] an sore throat 07/02/2012 headache [...] up 10/18/[address] Medrano last w [facility], having increased allergy symptoms. Would like steroid [...] 1 month f/u follow up 12/07/[address] [facility], done with PT--finished about 2wks ago follow up 11/08/2009 2wk fwup follow up 10/24/2009 hosp fwup ~generic 07/25/2009 bilateral earlobe re dness/swelling, pain radiating into neck, refill Demerol ~generic 05/26/2009 FALLING A LOT, SAVEL LA NOT HELPING FIBROMYALGIA PAIN, LT HAND LACERATION-FELL INTO NAIL 05/25/09 Encounters Encounter Performer Location Codes Date ([id number]) OFFICE/OUTPATIENT VISIT EST Diagnosis: Inspiratory stridor[ICD10: R06.1] Diagnosis: Diarrhea[ICD10: R19.7] Belia Reid [facility] CPT-4: 9921 3 07/06/2019 ([id number]) OFFICE/OUTPATIENT VISIT EST Diagnosis: Left leg swelling[ICD10: M79.89] Diagnosis: Dyspnea[ICD10: R06.00] [facility] CPT-4: 9921 3 06/24/2019 ([id number]) OFFICE/OUTPATIENT VISIT EST Diagnosis: Acute bronchitis[ICD10: J20.9] Diagnosis: Colitis[ICD10: K52.9] Belia REID [facility] CPT-4: 59914 06/16/2019 ([id number]) OFFICE/OUTPATIENT VISIT EST Diagnosis: Diarrhea[ICD10: R19.7] Diagnosis: Abdominal bloating[ICD10: R14.0] Belia Reid [facility] CPT- 4: 64082 06/08/2019 ([id number]) OFFICE/OUTPATIENT VISIT EST Diagnosis: Acute febrile illness[ICD10: R50.9] Diagnosis: Colitis[ICD10: K52.9] Belia Reid [facility] CPT-4: 49070 05/26/2019 ([id number]) OFFICE/OUTPATIENT VISIT EST Diagnosis: Chronic obstructive pulmonary disease, unspecified[ICD10: J44.9] Diagnosis: Pulmonary fibrosis[ICD10: J84.10] Diagnosis: Intermittent stridor[ICD10: R06.1] Diagnosis: Muscle weakness[ICD10: M62.81] Belia REID [facility] CPT-4: 39594 05/13/2019 ([id number]) OFFICE/OUTPATIENT VISIT EST Diagnosis: Stridor[ICD10: R06.1] Diagnosis: COUGH[ICD10: R05] Belia REID [facility] CPT-4: 41614 05/06/2019 ([id number]) OFFICE/OUTPATIENT VISIT EST Diagnosis: Stridor[ICD10: R06.1] Diagnosis: Muscle, jerky movements (uncontrolled)[ICD10: G25.5] Belia REID [facility] CPT-4: 47686 04/29/2019 ([id number]) OFFICE/OUTPATIENT VISIT EST Diagnosis: Upper respiratory infection[ICD10: J06.9] Diagnosis: Flank pain[ICD10: R10.9] Diagnosis: Weight gain[ICD10: R63.5] Pattie AMBRIZ [facility] CPT-4: 76742 04/16/2019 ([id number]) OFFICE/OUTPATIENT VISIT EST Diagnosis: Generalized pruritus[ICD10: L29.9] [facility] CPT-4: 96133 04/08/2019 ([id number]) OFFICE/OUTPATIENT VISIT EST Diagnosis: Acute bursitis of left shoulder[ICD10: M75.52] Diagnosis: Cervicalgia[ICD10: M54.2] Diagnosis: Chest wall pain[ICD10: R07.89] Belia [facility] CPT-4: 01909 01/22/2019 ([id number]) OFFICE/OUTPATIENT VISIT EST Diagnosis: Abdominal pain[ICD10: R10.9] Diagnosis: Pyelonephritis[ICD10: N12] Pattie DOMINGUEZ [employer] [facility] CPT-4: 88148 01/07/2019 ([id number]) OFFICE/OUTPATIENT VISIT EST Diagnosis: Low back pain[ICD10: M54.5] Diagnosis: Left lumbar radiculopathy[ICD10: M54.16] Diagnosis: Left flank pain[ICD10: R10.9] Diagnosis: Left lower quadrant pain[ICD10: R10.32] Diagnosis: FLU VACCINE[ICD10: Z23] Belia SMITH [facility] CPT-4: 26820 12/24/2018 ([id number]) OFFICE/OUTPATIENT VISIT EST Diagnosis: Migraine, unspecified, not intractable, without status migrainosus[ICD10: G43.909] Diagnosis: Fibromyalgia[ICD10: M79.7] Belia DAILEYER [employer] [facility] CPT-4: 47809 11/20/2018 ([id number]) OFFICE/OUTPATIENT VISIT EST Diagnosis: Migraine, unspecified, intractable, without status migrainosus[ICD10: G43.919] Diagnosis: Acute sinusitis, unspecified[ICD10: J01.90] Pattie REID DO [facility] CPT-4: 15484 11/04/2018 ([id number]) OFFICE/OUTPATIENT VISIT EST Diagnosis: Pain in left wrist[ICD10: M25.532] Diagnosis: Other dorsalgia[ICD10: M54.89] Pattie REID DO [facility] CPT-4: 58610 09/08/2018 ([id number]) OFFICE/OUTPATIENT VISIT EST Diagnosis: Acute stress reaction[ICD10: F43.0] Diagnosis: Pruritus, unspecified[ICD10: L29.9] 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, 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] Belia REID DO [facility] CPT-4: 73805 08/20/2018 ([id number]) OFFICE/OUTPATIENT VISIT EST Diagnosis: Hypotension due to drugs[ICD10: I95.2] Diagnosis: Paroxysmal atrial fibrillation[ICD10: I48.0] Diagnosis: Localized edema[ICD10: R60.0] Belia REID DO [facility] CPT-4: 98763 06/19/2018 ([id number]) OFFICE/OUTPATIENT VISIT EST Diagnosis: Generalized hyperhidrosis[ICD10: R61] Diagnosis: Essential (primary) hypertension[ICD10: I10] Diagnosis: Supraventricular tachycardia[ICD10: I47.1] Belia REID DO [facility] CPT-4: 25531 06/09/2018 ([id number]) OFFICE/OUTPATIENT VISIT EST Diagnosis: Stridor[ICD10: R06.1] Diagnosis: Dependence on supplemental oxygen[ICD10: Z99.81] Diagnosis: Weakness[ICD10: R53.1] Diagnosis: Supraventricular tachycardia[ICD10: I47.1] Belia REID DO [facility] CPT-4: 20635 05/21/2018 ([id number]) OFFICE/OUTPATIENT VISIT EST Diagnosis: Cervical disc disorder with radiculopathy, unspecified cervical region[ICD10: M50.10] Belia REID DO [facility] CPT-4: 65264 04/16/2018 ([id number]) OFFICE/OUTPATIENT VISIT EST Diagnosis: Migraine, unspecified, intractable, without status migrainosus[ICD10: G43.919] Diagnosis: Fibromyalgia[ICD10: M79.7] Pattie DOMINGUEZ DO [facility] CPT-4: 50627 04/01/2018 ([id number]) NURSE/OUTPATIENT VISIT EST Diagnosis: Hematuria, unspecified[ICD10: R31.9] Diagnosis: Dysuria[ICD10: R30.0] Belia REID [facility] CPT-4: 81258 03/17/2018 ([id number]) OFFICE/OUTPATIENT VISIT EST Diagnosis: Erythema intertrigo[ICD10: L30.4] Diagnosis: Chronic obstructive pulmonary disease with (acute) exacerbation[ICD10: J44.1] Diagnosis: Type 2 diabetes mellitus with hyperglycemia[ICD10: E11.65] Belia REID [facility] CPT-4: 61157 03/06/2018 ([id number]) OFFICE/OUTPATIENT VISIT EST Diagnosis: Cervicalgia[ICD10: M54.2] Pattie CAINR [facility] CPT-4: 65723 02/05/2018 ([id number]) OFFICE/OUTPATIENT VISIT EST Diagnosis: Candidiasis of skin and nail[ICD10: B37.2] Diagnosis: Cervicalgia[ICD10: M54.2] Pattie AMBRIZ [facility] CPT-4: 42541 01/20/2018 ([id number]) OFFICE/OUTPATIENT VISIT EST Diagnosis: Pain in thoracic spine[ICD10: M54.6] Diagnosis: Radiculopathy, thoracic region[ICD10: M54.14] Belia REID [facility] CPT-4: 92240 12/25/2017 ([id number]) OFFICE/OUTPATIENT VISIT EST Diagnosis: Pain in thoracic spine[ICD10: M54.6] Diagnosis: Other muscle spasm[ICD10: M62.838] Diagnosis: FLU VACCINE[ICD10: Z23] Diagnosis: PNEUMOCOCCAL VACCINE[ICD10: Z23] [facility] CPT-4: 38473 12/17/2017 ([id number]) OFFICE/OUTPATIENT VISIT EST Diagnosis: Chronic obstructive pulmonary disease with (acute) exacerbation[ICD10: J44.1] Belia REID DO [facility] CPT- 4: 30122 10/30/2017 ([id number]) OFFICE/OUTPATIENT VISIT EST Diagnosis: Chronic obstructive pulmonary disease with acute lower respiratory infection[ICD10: J44.0] Diagnosis: Mild intermittent asthma with (acute) exacerbation[ICD10: J45.21] Belia REID DO [facility] CPT-4: 64847 10/23/2017 ([id number]) NURSE/OUTPATIENT VISIT EST Diagnosis: Migraine, unspecified, not intractable, without status migrainosus[ICD10: G43.909] Belia REID DO [facility] CPT - 4: 17136 08/26/2017 ([id number]) OFFICE/OUTPATIENT VISIT EST Diagnosis: Urinary tract infection, site not specified[ICD10: N39.0] Diagnosis: Encounter for screening for osteoporosis[ICD10: Z13.820] Diagnosis: Encounter for screening mammogram for malignant neoplasm of breast[ICD10: Z12.31] Diagnosis: Acute bronchitis, unspecified[ICD10: J20.9] Pattie REID DO [facility] CPT-4: 26676 07/19/2017 ([id number]) OFFICE/OUTPATIENT VISIT EST Diagnosis: Rash and other nonspecific skin eruption[ICD10: R21] Pattie REID DO [facility] CPT-4: 72598 05/29/2017 ([id number]) OFFICE/OUTPATIENT VISIT EST Diagnosis: Diarrhea, unspecified[ICD10: R19.7] Diagnosis: Tinea corporis[ICD10: B35.4] Diagnosis: Tinea cruris[ICD10: B35.6] Diagnosis: Migraine, unspecified, not intractable, without status migrainosus[ICD10: G43.909] Belia REID DO [facility] CPT - 4: 13039 05/07/2017 ([id number]) OFFICE/OUTPATIENT VISIT EST Diagnosis: Stridor[ICD10: R06.1] Diagnosis: Chronic obstructive pulmonary disease with (acute) exacerbation[ICD10: J44.1] Belia REID DO [facility] CPT- 4: 20893 03/18/2017 ([id number]) OFFICE/OUTPATIENT VISIT EST Diagnosis: Type 2 diabetes mellitus with hyperglycemia[ICD10: E11.65] Belia REID DO [facility] CPT-4: 61470 02/27/2017 OFFICE/OUTPATIENT VISIT EST Diagnosis: Type 2 diabetes mellitus with hyperglycemia[ICD10: E11.65] Pattie REID DO [facility] CPT-4: 69992 02/22/2017 ([id number]) OFFICE/OUTPATIENT VISIT EST Diagnosis: Urinary tract infection, site not specified[ICD10: N39.0] Diagnosis: Pneumonia, unspecified organism[ICD10: J18.9] Diagnosis: Type 2 diabetes mellitus with hyperglycemia[ICD10: E11.65] Belia REID [facility] CPT-4: 38341 01/23/2017 ([id number]) OFFICE/OUTPATIENT VISIT EST Diagnosis: Type 2 diabetes mellitus with hyperglycemia[ICD10: E11.65] Diagnosis: Localized edema[ICD10: R60.0] Diagnosis: PNEUMOCOCCAL VACCINE[ICD10: Z23] Diagnosis: FLU VACCINE[ICD10: Z23] Belia FREDERICK [employer] [facility] CPT-4: 07822 12/20/2016 OFFICE/OUTPATIENT VISIT EST Diagnosis: Pain in thoracic spine[ICD10: M54.6] Diagnosis: Low back pain[ICD10: M54.5] Diagnosis: Cervicalgia[ICD10: M54.2] Diagnosis: Cough[ICD10: R05] Celeste Ferreira BELIA REID DO [facility] CPT-4: 36829 10/08/2016 ([id number]) OFFICE/OUTPATIENT VISIT EST Diagnosis: Primary insomnia[ICD10: F51.01] Diagnosis: Migraine, unspecified, not intractable, without status migrainosus[ICD10: G43.909] Diagnosis: Type 2 diabetes mellitus with hyperglycemia[ICD10: E11.65] Belia Orender BELIA REID DO [facility] CPT-4: 74559 09/19/2016 ([id number]) OFFICE/OUTPATIENT VISIT EST Diagnosis: Migraine, unspecified, not intractable, without status migrainosus[ICD10: G43.909] Diagnosis: Generalized abdominal pain[ICD10: R10.84] Diagnosis: Cough[ICD10: R05] Belia REID DO [facility] CPT-4: 91734 08/20/2016 ([id number]) OFFICE/OUTPATIENT VISIT EST Diagnosis: Chronic obstructive pulmonary disease, unspecified[ICD10: J44.9] Diagnosis: Stridor[ICD10: R06.1] Belia REID DO [facility] CPT-4: 88395 06/19/2016 ([id number]) OFFICE/OUTPATIENT VISIT EST Diagnosis: Chronic obstructive pulmonary disease, unspecified[ICD10: J44.9] Diagnosis: Personal history of urinary (tract) infections[ICD10: Z87.440] Belia REID DO [facility] CPT-4: 79282 06/04/2016 ([id number]) OFFICE/OUTPATIENT VISIT EST Diagnosis: Stridor[ICD10: R06.1] Diagnosis: Chronic obstructive pulmonary disease with acute lower respiratory infection[ICD10: J44.0] Diagnosis: Other specified diseases of intestine[ICD10: K63.89] Diagnosis: Cystitis, unspecified without hematuria[ICD10: N30.90] Belia REID DO [facility] CPT-4: 37054 05/02/2016 ([id number]) OFFICE/OUTPATIENT VISIT EST Diagnosis: Fibromyalgia[ICD10: M79.7] Diagnosis: Urinary tract infection, site not specified[ICD10: N39.0] Belia REID DO [facility] CPT-4: 04913 04/03/2016 ([id number]) OFFICE/OUTPATIENT VISIT EST Diagnosis: Unspecified asthma, uncomplicated[ICD10: J45.909] Diagnosis: Cough[ICD10: R05] Lidia Jaiden REID DO [facility] T-4: 81980 02/29/2016 ([id number]) OFFICE/OUTPATIENT VISIT EST Diagnosis: Migraine, unspecified, intractable, without status migrainosus[ICD10: G43.919] Diagnosis: Urinary tract infection, site not specified[ICD10: N39.0] Belia Anushka CORNELLLINE Yuridia REID [employer] [facility] CPT-4: 58543 02/02/2016 ([id number]) OFFICE/OUTPATIENT VISIT EST Diagnosis: Urinary tract infection, site not specified[ICD10: N39.0] Diagnosis: Unspecified abdominal pain[ICD10: R10.9] Diagnosis: Pain in thoracic spine[ICD10: M54.6] Diagnosis: Type 2 diabetes mellitus with diabetic neuropathic arthropathy[ICD10: E11.610] Belia Anushka HSUQUELINE Yuridia REID [employer] [facility] CPT-4: 84590 12/05/2015 ([id number]) OFFICE/OUTPATIENT VISIT EST Diagnosis: Chronic obstructive pulmonary disease with (acute) exacerbation[ICD10: J44.1] Diagnosis: Migraine, unspecified, not intractable, without status migrainosus[ICD10: G43.909] Lidia BRUNSON BushraMayda ANUSHKA [employer] [facility] CPT -4: 87019 10/26/2015 ([id number]) OFFICE/OUTPATIENT VISIT EST Diagnosis: Hematuria, unspecified[ICD10: R31.9] Diagnosis: Urinary tract infection, site not specified[ICD10: N39.0] Lidia BRUNSON BushraMayda LUIS [employer] [facility] CPT-4: 98304 10/05/2015 OFFICE/OUTPATIENT VISIT EST Diagnosis: Chronic obstructive pulmonary disease, unspecified[ICD10: J44.9] Diagnosis: Muscle weakness (generalized)[ICD10: M62.81] Diagnosis: Polyneuropathy, unspecified[ICD10: G62.9] Diagnosis: Other intervertebral disc degeneration, 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] Diagnosis: Fibromyalgia[ICD10: M79.7] Belia Smithannie BELIA Yuridia DAILEYER [employer] [facility] CPT-4: 24210 09/15/2015 ([id number]) OFFICE/OUTPATIENT VISIT EST Diagnosis: Disorientation, unspecified[ICD10: R41.0] Diagnosis: Headache[ICD10: R51] Diagnosis: Paresthesia of skin[ICD10: R20.2] Lidia Paredes Yuridia REID [employer] [facility] CPT-4: 73702 08/24/2015 ([id number]) OFFICE/OUTPATIENT VISIT EST Diagnosis: Type 2 diabetes mellitus with hyperglycemia[ICD10: E11.65] Diagnosis: Chronic obstructive pulmonary disease with acute lower respiratory infection[ICD10: J44.0] Belia REID DO [facility] CPT-4: 75862 07/05/2015 ([id number]) OFFICE/OUTPATIENT VISIT EST Diagnosis: Mild intermittent asthma with (acute) exacerbation[ICD10: J45.21] Diagnosis: Chronic obstructive pulmonary disease, unspecified[ICD10: J44.9] Belia REID [facility] CPT-4: 17974 06/06/2015 ([id number]) OFFICE/OUTPATIENT VISIT EST Diagnosis: Chronic obstructive pulmonary disease with (acute) exacerbation[ICD10: J44.1] Lidia REID [facility] CPT- 4: 05512 05/23/2015 ([id number]) OFFICE/OUTPATIENT VISIT EST Diagnosis: Type 2 diabetes mellitus with hyperglycemia[ICD10: E11.65] Diagnosis: Functional dyspepsia[ICD10: K30] Belia REID [employer] [facility] CPT-4: 53852 05/05/2015 ([id number]) OFFICE/OUTPATIENT VISIT EST Diagnosis: Type 2 diabetes mellitus with hyperglycemia[ICD10: E11.65] Diagnosis: Glycosuria[ICD10: R81] Diagnosis: Urinary tract infection, site not specified[ICD10: N39.0] Belia REID [facility] CPT-4: 04562 03/30/2015 ([id number]) OFFICE/OUTPATIENT VISIT EST Diagnosis: Generalized abdominal pain[ICD10: R10.84] Diagnosis: Diarrhea, unspecified[ICD10: R19.7] Diagnosis: Urinary tract infection, site not specified[ICD10: N39.0] Diagnosis: Gastro-esophageal reflux disease without esophagitis[ICD10: K21.9] Belia REID DO [facility] CPT-4: 45135 02/03/2015 ([id number]) OFFICE/OUTPATIENT VISIT EST Diagnosis: Other specified noninflammatory disorders of vagina[ICD10: N89.8] Diagnosis: Follicular disorder, unspecified[ICD10: L73.9] Diagnosis: Functional dyspepsia[ICD10: K30] Diagnosis: FLU VACCINE[ICD10: Z23] Belia SMITH [facility] CPT-4: 57612 12/29/2014 ([id number]) OFFICE/OUTPATIENT VISIT EST 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] Diagnosis: RESTLESS LEGS SYNDROME[ICD9: 333.94] Diagnosis: MIGRAINE NOS/NOT INTRCBL[ICD9: 346.90] [facility]: 29812 09/02/2014 ([id number]) OFFICE/OUTPATIENT VISIT EST Diagnosis: Cervical radiculopathy[ICD9: 723.4] Diagnosis: Cervicalgia[ICD9: 723.1] Diagnosis: Degenerative disc disease, cervical[ICD9: 722.4] 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I[ICD9: 250.00] [facility] CPT-4: 93796 04/01/2014 OFFICE/OUTPATIENT VISIT EST Diagnosis: Reactive airway disease[ICD9: 493.90] Belia Shi [facility] CPT-4: 45961 03/16/2014 ([id number]) OFFICE/OUTPATIENT VISIT EST Diagnosis: BRONCHITIS, ACUTE[ICD9: 466.0] Diagnosis: Reactive airway disease[ICD9: 493.90] Belia HSUPAUL LUBNA Bush[facility]Mayda [facility]: 13615 03/09/2014 OFFICE/OUTPATIENT VISIT EST Diagnosis: BRONCHITIS, ACUTE[ICD9: 466.0] Diagnosis: WHEEZING[ICD9: 786.07] Huong De LunaFidebingjanneth HSUBELIA BuhsraMayda [facility] CPT[facility]: 16959 03/03/2014 OFFICE/OUTPATIENT VISIT EST Diagnosis: BRONCHITIS, ACUTE[ICD9: 466.0] Diagnosis: WHEEZING[ICD9: 786.07] Huongsa [place] HSUQUELINE BushraMayda [facility] CPT-4: 79902 03/01/2014 ([id number]) OFFICE/OUTPATIENT VISIT EST Diagnosis: GERD[ICD9: 530.81] Diagnosis: ARTHRALGIA-MULTIPLE SITES[ICD9: 719.49] Diagnosis: LUMB/LUMBOSAC DISC DEGEN[ICD9: 722.52] Diagnosis: - I - FIBROMYALGIA[ICD9: 729.1] Belia [facility] CPT-4: 80377 02/09/2014 ([id number]) OFFICE/OUTPATIENT VISIT EST Diagnosis: Peptic ulcer disease[ICD9: 533.90] Diagnosis: RESTLESS LEGS SYNDROME[ICD9: 333.94] Diagnosis: Neuropathy[ICD9: 355.9] Belia SMITH [facility] CPT-4: 59348 12/23/2013 ([id number]) OFFICE/OUTPATIENT VISIT EST Diagnosis: URINARY TRACT INFECTION[ICD9: 599.0] Belia [facility]ID [facility] CPT-4: 22646 10/30/2013 ([id number]) OFFICE/OUTPATIENT VISIT EST Diagnosis: Flank pain[ICD9: 789.00] Belia POOLE [facility] CPT-4: 82924 10/21/2013 ([id number]) OFFICE/OUTPATIENT VISIT EST Diagnosis: INFLAMED SEBORR KERATOS[ICD9: 702.11] Diagnosis: Brachioradial pruritus[ICD9: 698.9] Diagnosis: ASTHMA NOS[ICD9: 493.90] Belia POOLE [facility] CPT-4: 77171 10/05/2013 ([id number]) OFFICE/OUTPATIENT VISIT EST Diagnosis: HYPERTENSION[ICD9: 401.9] Diagnosis: - I - FIBROMYALGIA[ICD9: 729.1] Diagnosis: DIZZINESS/VERTIGO[ICD9: 780.4] Diagnosis: MIGRAINE NOS/NOT INTRCBL[ICD9: 346.90] Diagnosis: Diabetic peripheral neuropathy[ICD9: 250.60] Diagnosis: Flank pain[ICD9: 789.00] Belia POOLE [facility] CPT-4: 28182 08/04/2013 ([id number]) OFFICE/OUTPATIENT VISIT EST Diagnosis: ALLERGIC RHINITIS[ICD9: 477.9] [facility] CPT-4: 79583 07/13/2013 OFFICE/OUTPATIENT VISIT EST Diagnosis: URINARY TRACT INFECTION[ICD9: 599.0] Huong CORNELL CLAYTON Yuridia [facility] CPT-4: 88136 07/03/2013 OFFICE/OUTPATIENT VISIT EST Diagnosis: HYPERTENSION[ICD9: 401.9] Diagnosis: URINARY TRACT INFECTION[ICD9: 599.0] Diagnosis: BACKACHE[ICD9: 724.5] Diagnosis: URINARY INCONTINENCE[ICD9: 788.30] Huong De LunaFidepool BASS MARIE Yuridia [facility] CPT-4: 94974 05/27/2013 ([id number]) OFFICE/OUTPATIENT VISIT EST Diagnosis: Flank pain[ICD9: 789.00] Belia BRUNSON BushraMayda KIESHA VIRGILIO [facility] CPT-4: 92635 05/25/2013 ([id number]) OFFICE/OUTPATIENT VISIT EST Diagnosis: B-COMPLEX DEFIC NEC[ICD9: 266.2] Belia BRUNSON BushraMayda [facility] CPT-4: 39886 05/04/2013 ([id number]) OFFICE/OUTPATIENT VISIT EST Diagnosis: ALLERGIC RHINITIS[ICD9: 477.9] Diagnosis: Vitamin B12 deficiency[ICD9: 266.2] Belia THOMPSON Yuridia REID [facility] CPT-4: 88972 04/17/2013 ([id number]) OFFICE/OUTPATIENT VISIT EST 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I[ICD9: 250.00] Diagnosis: URINARY TRACT INFECTION[ICD9: 599.0] Diagnosis: DIZZINESS/VERTIGO[ICD9: 780.4] Diagnosis: DIARRHEA[ICD9: 787.91] Belia BRUNSON BushraMayda ZACHARYANT Sudhir [facility] CPT-4: 14666 04/06/2013 ([id number]) OFFICE/OUTPATIENT VISIT EST Diagnosis: URINARY TRACT INFECTION[ICD9: 599.0] Diagnosis: URINARY RETENTION[ICD9: 788.20] Belia BRUNSON BushraMayda [facility] CPT-4: 39265 11/10/2012 ([id number]) OFFICE/OUTPATIENT VISIT EST Diagnosis: TACHYCARDIA[ICD9: 785.0] Diagnosis: SYNCOPE AND COLLAPSE[ICD9: 780.2] Diagnosis: CONSCIOUSNS ALTERAT NEC[ICD9: 780.09] Belia Humphriesnilson ARACELISPAUL LUBNA REID [facility] CPT-4: 09163 09/02/2012 OFFICE/OUTPATIENT VISIT EST Diagnosis: TACHYCARDIA[ICD9: 785.0] Diagnosis: SYNCOPE AND COLLAPSE[ICD9: 780.2] Belia Humphriesisabellaannie REID [facility] CPT-4: 47181 08/04/2012 ([id number]) OFFICE/OUTPATIENT VISIT EST Diagnosis: Loss of consciousness[ICD9: 780.09] Diagnosis: Tachycardia[ICD9: 785.0] Diagnosis: MALAISE AND FATIGUE[ICD9: 780.79] Belia HSUQUELIN Reggie [facility] CPT-4: 47072 07/21/2012 ([id number]) OFFICE/OUTPATIENT VISIT EST Diagnosis: BRONCHITIS, ACUTE[ICD9: 466.0] Diagnosis: ASTHMA NOS[ICD9: 493.90] Belia Humphriesnilson BRUNSON BushraMayda KIESHA POOLE [facility] CPT-4: 24127 07/02/2012 ([id number]) OFFICE/OUTPATIENT VISIT EST Diagnosis: CEPHALGIA[ICD9: 784.0] Belia Humphriesisabellaannie HSUBELIA BushraMayda RALF Peguero [facility] CPT-4: 84680 06/25/2012 ([id number]) OFFICE/OUTPATIENT VISIT EST Diagnosis: GERD[ICD9: 530.81] Diagnosis: DIARRHEA[ICD9: 787.91] Diagnosis: URINARY TRACT INFECTION[ICD9: 599.0] Diagnosis: ASTHMA NOS[ICD9: 493.90] Diagnosis: ALLERGIC RHINITIS[ICD9: 477.9] Belia Humphriesisabellaannie HSUBELIA Bushra Mayda ANUSHKA [facility] CPT-4: 75689 06/24/2012 ([id number]) OFFICE/OUTPATIENT VISIT EST Diagnosis: MIGRAINE NOS/NOT INTRCBL[ICD9: 346.90] Diagnosis: TREMOR NEC[ICD9: 333.1] Diagnosis: CHRONIC PAIN SYNDROME[ICD9: 338.4] Belia SALAZAR BushraMayda [facility] CPT-4: 09507 05/20/2012 ([id number]) OFFICE/OUTPATIENT VISIT EST Diagnosis: DIZZINESS/VERTIGO[ICD9: 780.4] Diagnosis: PALPITATIONS[ICD9: 785.1] Diagnosis: TREMOR NEC[ICD9: 333.1] Diagnosis: ANXIETY STATE NOS[ICD9: 300.00] Diagnosis: POSTTRAUMATIC STRESS DISORDER[ICD9: 309.81] Belia [facility] CPT-4: 83321 05/08/2012 ([id number]) OFFICE/OUTPATIENT VISIT EST Diagnosis: MIGRAINE NOS/NOT INTRCBL[ICD9: 346.90] Diagnosis: FIBROMYALGIA[ICD9: 729.1] Diagnosis: SYNCOPE AND COLLAPSE[ICD9: 780.2] Diagnosis: Diabetic peripheral neuropathy[ICD9: 250.60] Belia CORNELLLINE BushraMayda [facility] CPT-4: 30640 04/22/2012 OFFICE/OUTPATIENT VISIT EST Diagnosis: ROTATOR CUFF DIS NEC[ICD9: 726.19] Diagnosis: JOINT PAIN-SHLDER[ICD9: 719.41] Diagnosis: DYSPEPSIA[ICD9: 536.8] Belia CORNELLLINE BushraMayda RALF [employer] [facility] CPT-4: 68249 02/13/2012 ([id number]) OFFICE/OUTPATIENT VISIT EST Diagnosis: MIGRAINE NOS/NOT INTRCBL[ICD9: 346.90] Diagnosis: GERD[ICD9: 530.81] Diagnosis: DYSPEPSIA[ICD9: 536.8] Belia CORNELLLINE BushraMayda RALF [employer] CPT-4: 70129 01/28/2012 OFFICE/OUTPATIENT VISIT EST Diagnosis: CEPHALGIA[ICD9: 784.0] Diagnosis: MIGRAINE NOS/NOT INTRCBL[ICD9: 346.90] Diagnosis: GERD[ICD9: 530.81] Diagnosis: INSOMNIA NOS[ICD9: 780.52] Belia Anushka BELIA BushraMayda [facility] CPT-4: 53787 12/26/2011 ([id number]) OFFICE/OUTPATIENT VISIT EST Diagnosis: CEPHALGIA[ICD9: 784.0] Diagnosis: MIGRAINE NOS/NOT INTRCBL[ICD9: 346.90] Diagnosis: MALAISE AND FATIGUE[ICD9: 780.79] Diagnosis: FIBROMYALGIA[ICD9: 729.1] Diagnosis: ALLERGIC RHINITIS[ICD9: 477.9] Belia REID [facility] CPT-4: 82517 11/14/2011 ([id number]) OFFICE/OUTPATIENT VISIT EST Diagnosis: MALAISE AND FATIGUE[ICD9: 780.79] Diagnosis: MUSCLE WEAKNESS-GENERAL[ICD9: 728.87] Diagnosis: MIGRAINE NOS/NOT INTRCBL[ICD9: 346.90] Diagnosis: JOINT PAIN-SHLDER[ICD9: 719.41] Belia REID [facility] CPT-4: 30841 09/12/2011 ([id number]) OFFICE/OUTPATIENT VISIT EST Diagnosis: CONCUSSION[ICD9: 850.9] Diagnosis: Ataxia[ICD9: 781.3] Diagnosis: DIZZINESS/VERTIGO[ICD9: 780.4] Belia REID [facility] CPT-4: 28997 08/15/2011 ([id number]) OFFICE/OUTPATIENT VISIT EST Diagnosis: THROMBOPHLEBITIS[ICD9: 451.9] Diagnosis: Subacromial bursitis[ICD9: 726.19] Diagnosis: ALLERGIC RHINITIS[ICD9: 477.9] Diagnosis: Lipoma[ICD9: 214.9] Belia REID [facility] CPT-4: 68035 08/09/2011 ([id number]) OFFICE/OUTPATIENT VISIT EST Diagnosis: THROMBOPHLEBITIS[ICD9: 451.9] Diagnosis: Arm pain[ICD9: 729.5] Diagnosis: Clostridium difficile colitis[ICD9: 008.45] Diagnosis: URINARY TRACT INFECTION[ICD9: 599.0] Belia REID [facility] CPT-4: 93070 07/03/2011 ([id number]) OFFICE/OUTPATIENT VISIT EST Diagnosis: ARTHRALGIA-MULTIPLE SITES[ICD9: 719.49] Diagnosis: Muscle cramp[ICD9: 729.82] Diagnosis: INSOMNIA NOS[ICD9: 780.52] [facility]: 10473 06/04/2011 OFFICE/OUTPATIENT VISIT EST Diagnosis: Headache[ICD9: 784.0] Diagnosis: Allergic rhinitis[ICD9: 477.9] [facility]ia [facility] CPT-4: 72102 05/03/2011 OFFICE/OUTPATIENT VISIT EST Diagnosis: LUMB/LUMBOSAC DISC DEGEN[ICD9: 722.52] Diagnosis: MIGRAINE NOS/NOT INTRCBL[ICD9: 346.90] Diagnosis: CHRONIC PAIN SYNDROME[ICD9: 338.4] Diagnosis: RESTLESS LEGS SYNDROME[ICD9: 333.94] Belia ARNOLD Yuridia [facility] CPT-4: 16717 04/05/2011 OFFICE/OUTPATIENT VISIT EST Diagnosis: MIGRAINE NOS/NOT INTRCBL[ICD9: 346.90] Diagnosis: GERD[ICD9: 530.81] Belia [facility] CPT-4: 12237 03/08/2011 OFFICE/OUTPATIENT VISIT EST Diagnosis: URINARY TRACT INFECTION[ICD9: 599.0] Diagnosis: Vertigo[ICD9: 780.4] Diagnosis: GERD[ICD9: 530.81] [facility]: 17102 01/24/2011 OFFICE/OUTPATIENT VISIT EST Diagnosis: Hypotension[ICD9: 458.9] Diagnosis: Syncopal episodes[ICD9: 780.2] Diagnosis: MIGRAINE NOS/NOT INTRCBL[ICD9: 346.90] Diagnosis: MALAISE AND FATIGUE[ICD9: 780.79] Belia Paredes Yuridia [facility] CPT-4: 14106 01/02/2011 OFFICE/OUTPATIENT VISIT EST Diagnosis: Tinea cruris[ICD9: 110.3] Diagnosis: Intertrigo[ICD9: 695.89] Diagnosis: MIGRAINE NOS/NOT INTRCBL[ICD9: 346.90] Belia COKER Yuridia [facility] CPT-[facility]: 98665 12/07/2010 OFFICE/OUTPATIENT VISIT EST Diagnosis: PALPITATIONS[ICD9: 785.1] Diagnosis: ANXIETY STATE NOS[ICD9: 300.00] Bleia Zacharynilson BRUNSON Yuridia [facility] CPT-4: 10824 11/16/2010 OFFICE/OUTPATIENT VISIT EST Diagnosis: URINARY TRACT INFECTION[ICD9: 599.0] Diagnosis: MIGRAINE NOS/NOT INTRCBL[ICD9: 346.90] Iraida CASILLAS [facility] CPT-4: 60279 11/02/2010 OFFICE/OUTPATIENT VISIT EST Diagnosis: ALLERGIC RHINITIS[ICD9: 477.9] Diagnosis: ANXIETY STATE NOS[ICD9: 300.00] Belia Zacharyisabellaannie [facility]LLBELIA [facility] CPT-4: 23584 10/18/2010 OFFICE/OUTPATIENT VISIT EST Beliaclayton [facility]SON [facility] CPT- 4: 72115 09/19/2010 OFFICE/OUTPATIENT VISIT EST Belia [facility]SON [facility] CPT- 4: 61560 09/06/2010 ([id number]) OFFICE/OUTPATIENT VISIT EST Belia Zacharyisabellaannie CASILLAS [facility] CPT-4: 69300 08/10/2010 ([id number]) OFFICE/OUTPATIENT VISIT EST Beliaclayton CASILLAS [facility] CPT-4: 18085 05/11/2010 ([id number]) OFFICE/OUTPATIENT VISIT, EST Belia Zacharyisabellaannie [facility] CPT-4: 22557 04/06/2010 ([id number]) OFFICE/OUTPATIENT VISIT, EST Belia Zacharyisabellaannie [facility] CPT-4: 28989 02/09/2010 ([id number]) OFFICE/OUTPATIENT VISIT, EST Belia Zacharyisabellaannie [facility] CPT-4: 03266 01/05/2010 ([id number]) OFFICE/OUTPATIENT VISIT, EST Belia Smithannie [facility] CPT-4: 28727 12/07/2009 ([id number]) OFFICE/OUTPATIENT VISIT, EST Belia Smithannie ARACELIS [facility] CPT-4: 59768 11/08/2009 ([id number]) OFFICE/OUTPATIENT VISIT, EST Belia HSU [facility] CPT-4: 79414 10/24/2009 ([id number]) OFFICE/OUTPATIENT VISIT, [facility] CPT-4: 11356 07/25/2009 ([id number]) OFFICE/OUTPATIENT VISIT, [facility] CPT-4: 70719 05/26/2009 Plan of Care Planned Activity Notes Codes Status Date Visit Diagnosis Plan: Inspiratory stridor Discussion: Continue oxygen via NC at 2 L Continue ativan at QID Follow Up: 4 weeks ICD-9 : 786.1 ICD-10 : R06.1 07/06/2019 Visit Diagnosis Plan: Diarrhea Discussion: Restart Col estid at once daily ICD-9 : 787.91 ICD-10 : R19.7 07/06/2019 Appointment: Belia Reid WPtel: [phone] [id number] TELEMEDICINE 07/06/2019 Visit Diagnosis Plan: Left leg swelling Discussion: [facility] LLE venous doppler--patient states is scheduled for [...] R06.00 06/24/2019 Appointment: Belia Reid WPtel: [phone] [facility] TELEMEDICINE 06/24/2019 Visit Diagnosis Plan: Colitis Discussion: Levaquin/[place] gyl [place] Diet ICD-9 : 558.9 ICD-10 : K52.9 06/16/2019 Visit Diagnosis Plan: Acute bronchitis Discussion: Cov er with levaquin Increase SVNs with albuterol to QID Has oxygen using q HS routinely and prn To ER if oxygen levels drop or worsening respiratory symptoms ICD-9 : 466.0 ICD-10 : J20.9 06/16/2019 Appointment: Belia Reid WPtel: [address] [place] [address] TELEMEDICINE 06/16/2019 Patient Education: Levaquin- [employer] Coupon [phone] [email or web address] Completed 06/16/2019 Visit Diagnosis Plan: Diarrhea Discussion: Vancomycin for 10 days and notify if not improving or worsening BLAND diet Hydrate ICD-9 : 787.91 ICD-10 : R19.7 06/08/2019 Appointment: Belia Reid WPtel: [address] [place] [address] TELEMEDICINE 06/08/2019 Visit Diagnosis Plan: Colitis Discussion: Flagyl plus cipro to cover for both colitis and UTI Notify or to ER if worsening ICD-9 : 558.9 ICD-10 : K52.9 05/26/2019 Visit Diagnosis Plan: Acute febrile illness Discussion : Notify if worsens ICD-9 : 780.60 ICD-10 : R50.9 05/26/2019 Appointment: Belia Reid WPtel: [address] [place] [address] TELEMEDICINE 05/26/2019 Appointment: Pattie Sotomayor [address] [place] [address] RESCHEDULED 05/18/2019 Visit Diagnosis Plan: Chronic obstructive pulmonary di sease, unspecified Discussion: Recommend pulmonary rehab Patient states she never went to pulmonary rehab due to cost as well as transportation issues Finish trelagy Stop singulair Decrease hydroxyzine to 25mg po q HS Fwup [address] scan of Chest results discussed ICD-9 : 496 ICD-10 : J44.9 05/13/2019 Appointment: Belia Reid WPtel: [address] [place], [place] [id number] Hospital Follow Up 05/13/2019 Visit Diagnosis Plan: COUGH Discussion: Check CT scan of chest ICD-9 : 786.2 ICD-10 : R05 05/06/2019 Visit Diagnosis Plan: Stridor Discussion: Add Trelagy 1 p daily Add Singulair May need to see new chip applying machine tender ICD-9 : 786.1 ICD-10 : R06.1 05/06/2019 Appointment: Belia Reid WPtel: [address] [place], [place] [id number] FOLLOW UP 05/06/2019 Patient Education: Singulair- OptimizeRX Humble [id number] https://www.T3 Search/sampleTwitt2go/resources/getResource/61/1500551d-e79s-41i9-sn Completed 05/06/2019 Appointment: Belia Reid WPtel: [address] [place] [address] US RESCHEDULED 04/30/2019 Visit Diagnosis Plan: Stridor [...] : G25.5 04/29/2019 Appointment: Belia Reid WPtel: [address] [place], [place] [phone] Hospital Follow Up 04/29/2019 Patient Education: Valium- OptimizeRX Coupon [id number] https://www.T3 Search/samplemd/resources/getResource/61/v94529xh-287z-2o31-0y Completed 04/29/2019 Visit Diagnosis Plan: Flank pain [...] ICD-10 : R63.5 04/16/2019 Appointment: Pattie Sotomayor [address] [place] [address] ACUTE ILLNESS 04/16/2019 Patient Education: cyclobenzaprine- OptimizeRX Coupon [id number] https://www.T3 Search/sampleTwitt2go/resources/getResource/61/no65l7b6-8871-1292-b8 Completed 04/16/2019 Visit Diagnosis Plan: Migraine, unspecif ied, not intractable, without status migrainosus Discussion: Increase gabapentin to 600mg po BID ICD-9 : 346.90 ICD-10 : G43.909 04/08/2019 Visit Diagnosis Plan: Generalized pruritus Discussion: Hydroxyzine 25mg po TID for itching and anxiety ICD-9 : 698.9 ICD-10 : L29.9 04/08/2019 Appointment: Belia Reid WPtel: [address] [place] [address] ACUTE ILLNESS 04/08/2019 Visit Diagnosis Plan: Cervicalgia [...] Reid WPtel: [facility] [address] Hospital Follow Up 01/22/2019 Visit Diagnosis Plan: Abdominal pain Discussion: urine culture sent to assess for any infection. rocephin given in office to cover for pyelonephritis. instructed to push fluids. call office with any new or worsening symptoms. ICD-9 : 789.00 ICD-10 : R10.9 01/07/2019 Appointment: Pattie Sotomayor [address] [place] [address] ACUTE ILLNESS 01/07/2019 Visit Diagnosis Plan: Low back pain Discussion: Stat C T of abdomen/pelvis now ICD-9 : 724.2 ICD-10 : M54.5 12/24/2018 Appointment: Belia Reid WPtel: [address] [place] [address] FOLLOW UP 12/24/2018 Visit Diagnosis Plan: Migraine, [...] : M79.7 11/20/2018 Appointment: Belia Reid WPtel: [address] [place] [address] ACUTE ILLNESS 11/20/2018 Patient Education: baclofen- OptimizeRX Coupon [id number] https://www.Cobra Stylet.Guitar Party/samplemd/resources/getResource/61/5q8509r1-ek0x-52wt-84 Completed 11/20/2018 Visit Diagnosis Plan: Migraine, unspecif ied, intractable, without status migrainosus Discussion: toradol/phenergan given in o ffice (60 mg toradol, 12.5 mg phenergan). instructed to call if no improvement or worsening. instructed to follow up with inside sales recruiter since headaches are occurring more frequently to make sure vision is not the cause. ICD-9 : 346.91 ICD-10 : G43.919 11/04/2018 Visit Diagnosis Plan: Acute sinusitis, unspecified Dis cussion: zithromax prescribed to cover for sinus infection due to length of symptoms and clinincal s/s. ICD-9 : 461.9 ICD-10 : J01.90 11/04/2018 Appointment: Pattie Sotomayor 504 [facility]6676[facility] ACUTE ILLNESS 11/04/2018 Appointment: Belia Reid WPtel: [address] [place], [place] [phone] US CANCELED 09/24/2018 Visit Diagnosis Plan: Type 2 diabetes me llitus with diabetic neuropathy, unspecified Discussion: Retry gabapentin 300mg po q HS ICD-9 : 250.60 ICD-10 : E11.40 09/18/2018 Visit Diagnosis Plan: Vitamin D deficiency, unspecifie d Discussion: Increase Vitamin D3 to 10,000 u daily ICD-9 : 268.9 ICD-10 : E55.9 09/18/2018 Visit Diagnosis Plan: Encounter for [facility] adult medical examination without abnormal [...] : I10 09/18/2018 Appointment: Belia Reid WPtel: [address] [place], [place] [phone] Annual Well Visit 09/18/2018 Patient Education: gabapentin- OptimizeRX Coupon [id number] https://www.Cobra Stylet.com/samplemd/resources/getResource/61/7x19vy93-8xu2-3urd-d2 Completed 09/18/2018 Visit Diagnosis Plan: Pain in [...] : M54.89 09/08/2018 Appointment: Pattie Sotomayor 504 [facility]6676[facility] ACUTE ILLNESS 09/08/2018 Patient Education: prednisone- OptimizeRX Coupon [id number] https://www.Cobra Stylet.Guitar Party/samplemd/resources/getResource/61/6j4pk56o-2307-81d4-yq Completed 09/08/2018 Visit Diagnosis Plan: Pruritus, unspecified [...] : E10.9 08/20/2018 Appointment: Belia Reidtel: 2[address] [facility]6676[facility] ACUTE ILLNESS 08/20/2018 Patient Education: Lexapro- OptimizeRX Coupon [id number] Completed 08/20/2018 Patient Education: hydroxyzine HCl- OptimizeRX Coupon [id number] Completed 08/20/2018 Care Plan: MAMMOGRAM SCREENING LOINC : 2 6347-5 Pending 08/20/2018 Visit Diagnosis Plan: Paroxysmal atrial fibrillation D iscussion: Discuss eliquis need with cardiology at [place] due to cost ICD-9 : 427.31 ICD-10 : I48.0 06/19/2018 Visit Diagnosis Plan: Hypotension due to drugs Discuss ion: Discussed decreasing cardizem dose due to low BP and edema but sees cardiology next week Follow Up: 1 months ICD-9 : 458.8 ICD-10 : I95.2 06/19/2018 Appointment: Belia Reid WPtel: [facility]7 [facility] [place] FOLLOW UP 06/19/2018 Visit Diagnosis Plan: [...] : R61 06/09/2018 Appointment: Belia Reid WPtel: [address] [place], [place] [phone] FOLLOW UP 06/09/2018 Care Plan: CHEST X-RAY 2VW FRONTAL&LATL LOINC : 79165-4 Pending 05/26/2018 Visit Diagnosis Plan: Supraventricular tachycardia [...] : R53.1 05/21/2018 Appointment: Belia Reid WPtel: [facility]2 [facility] Hospital Follow Up 05/21/2018 Visit Diagnosis Plan: Cervical disc diso rder with radiculopathy, unspecified cervical region Discussion: Scheduled for surgery on 06/02 10/[address] Faulkner ICD-9 : 722.0 ICD-10 : M50.10 04/16/2018 Appointment: Belia Reid WPtel: [address] [place], [place] [phone] Hospital Follow Up 04/16/2018 Visit Diagnosis Plan: [...] : G43.919 04/01/2018 Appointment: Pattie Sotomayor [address] [place] [address] ACUTE ILLNESS 04/01/2018 Appointment: Belia Reid WPtel: [address] [place] [address] 03/17/2018 Visit Diagnosis Plan: Chronic obstructiv e [...] : E11.65 03/06/2018 Appointment: Belia Reid WPtel: [address] [place], [place] [address] Hospital Follow Up 03/06/2018 Visit Diagnosis Plan: Cervicalgia Discussion: spoke wi th dr. reid about patient. increased gabapentin to bid and started on celebrex bid. tramadrol rx written out to take prn. keep scheduled appt next week for myelogram. ICD-9 : 723.1 ICD-10 : M54.2 02/05/2018 Appointment: Bran, Pattie [address] ACUTE ILLNESS 02/05/2018 Care Plan: X-RAY EXAM NECK SPINE 4/5VWS cervical LOINC : 46933-1 Pending 01/21/2018 Visit Diagnosis Plan: Candidiasis of [...] : M54.2 01/20/2018 Appointment: Pattie Sotomayor [address] [place] [address] ACUTE ILLNESS 01/20/2018 Visit Diagnosis Plan: Pain in thoracic spine Discussio n: Proceed with CT scan of thoracic spine Will likely need PT ICD-9 : 724.1 ICD-10 : M54.6 12/25/2017 Appointment: Belia Reid WPtel: [address] FOLLOW UP 12/25/2017 Care Plan: CT THORAX W/O DYE LOINC : 473 66-0 Pending 12/25/2017 Visit Diagnosis Plan: Pain in thoracic spine Discussio n: Stretches Alternated heat/ice Topical aspercreme with lidocaine Flexeril Recheck 1 week Flu and Pneumovax given ICD-9 : 724.1 ICD-10 : M54.6 12/17/2017 Appointment: Belia Reid WPtel: [address] ACUTE ILLNESS 12/17/2017 Patient Education: Patient [...] ICD-10 : J44.1 10/30/2017 Appointment: Belia Reidtel: [address] [place], [place] [phone] FOLLOW UP 10/30/2017 Patient Education: Patient Medication Summary Completed 10/30/2017 Visit Diagnosis Plan: Chronic obstructiv e pulmonary disease with acute lower respiratory infection Discussion: Continue SVNs with albuterol q4hrs Add Trelagy 1 inhalation daily Finish steroids Increase water intake Follow Up: 1 weeks ICD-9 : 496 ICD-10 : J44.0 10/23/2017 Appointment: Belia Reidtel: [address] [place] [address] WORK IN 10/23/2017 Patient Education: Patient Medication Summary Completed 10/23/2017 Appointment: Belia Reidtel: [address] [place], [place] [address] NO SHOW 10/16/2017 [...] ICD-10 : E11.65 09/17/2017 Appointment: Belia Reidtel: [address] [place], [place] [phone] Annual Well Visit 09/17/2017 Patient Education: Patient Medication Summary Completed 09/17/2017 Appointment: Belia Reidtel: [address] [place], [place] [phone] [place] INJECTION 08/26/2017 Patient Education: Patient Medication Summary Completed 08/26/2017 Appointment: Belia Reidtel: [facility] [place] CANCELED 07/31/2017 Visit Diagnosis Plan: Encounter [...] J20.9 07/19/2017 Appointment: [id number] 07/19/2017 Patient Education: Patient Medication Summary Completed 07/19/2017 Care Plan: MAMMOGRAM SCREENING LOINC : 2 6347-5 Pending 07/19/2017 Patient Education: Patient Medication Summary Completed 06/05/2017 Care Plan: LIPID PANEL LOINC : 76158-7 Pending 06/05/2017 Care Plan: A1C HPLC LOINC : 59069-9 Pending 06/05/2017 Visit Diagnosis Plan: Rash and [...] : R21 05/29/2017 Appointment: Pattie Sotomayor [address] [id number] FOLLOW UP 05/29/2017 Patient Education: Patient Medication Summary Completed 05/29/2017 Visit Diagnosis Plan: Tinea corporis Discussion: Diflu can and topical nystatin Follow Up: 2 weeks ICD-9 : 110.5 ICD-10 : B35.4 05/07/2017 Visit Diagnosis Plan: Diarrhea, unspecified Discussion : Diflucan Cholestyramine Recheck 2weeks ICD-9 : 787.91 ICD-10 : R19.7 05/07/2017 Appointment: Belia Reid WPtel: [address] [place], [place] [phone] [place] FOLLOW UP 05/07/2017 Patient Education: Patient Medication Summary Completed 05/07/2017 Appointment: Belia Reid WPtel: [address] [place] [address] US RESCHEDULED 04/30/2017 Visit Diagnosis Plan: Chronic obstructiv e pulmonary disease with (acute) exacerbation Discussion: Finish prednisone Continue S VNS with albuterol ICD-9 : 491.21 ICD-10 : J44.1 03/18/2017 Visit Diagnosis Plan: Stridor Discussion: Increase Ati van 0.5mg po to TID routinely for next week then can go back to prn ICD-9 : 786.1 ICD-10 : R06.1 03/18/2017 Appointment: Belia Reid WPtel: [address] [place], [place] [phone] ER Follow UP 03/18/2017 Patient Education: Patient [...] : E11.65 02/27/2017 Appointment: Belia Reid WPtel: [address] [place], [place] [phone] [place] FOLLOW UP 02/27/2017 Patient Education: Patient [...] ICD-10 : E11.65 02/22/2017 Appointment: Pattie Sotomayor [address] [place], [place] [address] [facility]6[address] ACUTE ILLNESS [...] Reid WPtel: 2305 [facility] [place] Follow UP 01/23/2017 Patient Education: Patient Medication Summary Completed 01/23/2017 Appointment: Pattie Sotomayor [address] [place], [place] [address] [facility] [place] CANCELED 01/17/2017 Appointment: Pattie Sotomayor [address] [place], [place] [phone] Annual Well Visit 01/14/2017 Visit Diagnosis Plan: Type 2 diabetes mellitus with hy perglycemia Discussion: Check CMP, HbA1C Flu shot and Prevnar 13 given Follow Up: 3 months ICD-9 : 250.02 ICD-10 : E11.65 12/20/2016 Visit Diagnosis Plan: Localized edema Discussion: Low Na diet Compression socks/Elevate feet ICD-9 : 782.3 ICD-10 : R60.0 12/20/2016 Appointment: Belia Reid WPtel: [facility] FOLLOW UP 12/20/2016 Patient Education: Patient Medication Summary Completed 12/20/2016 Patient Education: Patient Medication Summary Completed 10/10/2016 Visit Plan: Xrays of cervical, thoracic and lumbar spine at [facility] for Mobic (stop NSAIDS except Tylenol) and Flexeril UA sent for C&S Using SVN Call in 2-3 days if pain not improved or any worsening 10/08/2016 Appointment: Celeste Ferreira WPtel: [address] [place] [address] ACUTE ILLNESS 10/08/2016 Patient Education: Patient Medication [...] Reid WPtel: [facility]4 [facility] 09/18 confirmed`sl FOLLOW UP 09/19/2016 Patient Education: [...] R10.84 08/20/2016 Appointment: Belia Reid WPtel: [address] [place], [place] [address] 08/16 confirmed~sl FOLLOW UP 08/20/2016 Patient Education: [...] : J44.9 06/19/2016 Appointment: Belia Reid WPtel: [address] [place], [place] [phone] [place] 06/18 confirmed ~ Hospital Follow Up [...] Reid WPtel: [facility] [place] 06/01 confirmed~sl FOLLOW UP 06/04/2016 Patient [...] : R06.1 05/02/2016 Appointment: Belia Reid WPtel: [address] [place], [place] [address] 05/01 confirmed [facility] Hospital Follow Up 05/02/2016 Patient [...] : N39.0 04/03/2016 Appointment: Belia Reid WPtel: [address] [place], [place] [phone] [facility] 04/03/2016 Patient Education: Patient Medication Summary Completed 04/03/2016 Visit Plan: Lungs are clear Her symptoms and exam are all upper airway restriction/constriction Can try supportive care Rx as above Follow up PRN 02/29/2016 Appointment: Lidia Hwang [address] [place], [place] [address] ACUTE ILLNESS 02/29/2016 Patient Education: Patient Medication Summary Completed 02/29/2016 Visit Plan: Toradol/Phenergan today for Migraine Change to Clindamycin to cover lactobacillus for UTI Cover with flagyl due to hx of C. Diff 02/02/2016 Appointment: Belia Reid WPtel: [address] [place], [place] [phone] 01/31 confirmed`sl ACUTE ILLNESS 02/02/2016 Patient Education: Patient Medication Summary Completed 02/02/2016 Visit Plan: Increase neurontin to 300mg q AM and 600mg q PM Discussed neurology re-evaluation Flu shot given Need to check on Pneumonia shot Rx written out for albuterol 01/05/2016 Appointment: Belia Reid WPtel: [address] [place], [place] [phone] 01/03 confirmed ~sl Annual Well Visit 01/05/2016 Patient Education: Patient Medication Summary Completed 01/05/2016 Visit Plan: Cipro Culture urine hydrate Flexeril refilled Alternate heat and ice for back Increase gabapentin to 300mg po BID Notify if worsens 12/05/2015 Appointment: Belia Reid WPtel: [address] [place], [place] [phone] 11/30 confirmed~sl ACUTE ILLNESS 12/05/2015 Patient Education: Patient Medication Summary Completed 12/05/2015 Patient Education: Patient Medication Summary Completed 10/27/2015 Care Plan: COMPREH[place] : [address]-8 Pending 10/27/2015 Care Plan: A1C HPLC LOINC : 97969-3 Pending 10/27/2015 Visit Plan: Lungs are CTA today and is f eeling improved overall Finish meds as ordered Continue inhalers and neb treatments Discussed migraine treatment options She does not feel she needs anything additional added today Refill of Januvia sent since no samples are available today 10/26/2015 Appointment: Lidia Hwang [address] [place], [place] [phone] Hospital Follow Up 10/26/2015 Appointment: Lidia Hwang [address] [place], [place] [phone] CANCELED 10/26/2015 Patient Education: Patient Medication Summary Completed 10/26/2015 Patient Education: Natalia - 18+ - KENNETH - No [place] Completed 10/26/2015 Visit Plan: Office dip still abnormal Cu lture pending Switch to cipro - stop macrobid Push fluids - avoid caffeine Will call with culture results when available Follow up if worsening 10/05/2015 Appointment: Lidia Hwang [address] [place], [place] [phone] ER Follow UP 10/05/2015 Patient Education: Patient Medication Summary Completed 10/05/2015 Visit Plan: Proceed with PT for document ation of ROM and strength of all extremities Proceed with Power Mobility Device Trial of neurontin 300mg q HS--lyrica helped but patient unable to afford Recheck 1month 09/15/2015 Appointment: Belia Reid WPtel: [address] [place] [address] 09/13 confirmed~sl SPECIAL 09/15/2015 Patient Education: Patient Medication Summary Completed 09/15/2015 Visit Plan: Fille out Loan Discharge Pap erwork for total and permanent disability 08/25/2015 Patient Education: Patient Medication Summary Completed 08/25/2015 Visit Plan: Discussed with Dr Anushka Haywood at CT of head Will get last date of carotid doppler from her programmer and update if needed 08/24/2015 Appointment: Lidia Hwang [address] [place], [place] [phone] 08/22 confirmed~sl ACUTE ILLNESS 08/24/2015 Patient Education: Patient Medication Summary Completed 08/24/2015 Patient Education: Patient Medication Summary Completed 08/24/2015 Care Plan: US EXAM OF HEAD AND NECK carotid Ultrasound LOIN C : 45968-5 Pending 08/24/2015 Visit Plan: Long discussion about diet A ccuchecks daily Check HbA1C, CMP Change requip to mirapex 07/05/2015 Appointment: Belia Reid WPtel: [address] [place] [address] 07/03 confirmed ~sl FOLLOW UP 07/05/2015 Patient Education: Patient Medication Summary Completed 07/05/2015 Visit Plan: Add Breo ellipta 100 1 p BID Continue SVNs with duoneb QID 06/06/2015 Appointment: Belia Reid WPtel: [facility]9 [facility] Patient is calling for a ride, then [...] not improving 05/23/2015 Appointment: Huong Osborne WPtel: [address] [place] [address] ACUTE ILLNESS 05/23/2015 Appointment: Lidia Hwang [address] [place] [address] ER Follow UP 05/23/2015 Patient Education: Patient Medication Summary Completed 05/23/2015 Visit Plan: Check pancreatic enzymes and US of pancreas as patient can't understand why she has diabetes since has no family history Discussed weight, diet, exercise all play an important role in diabetes and are risk factors as well Continue Januvia and accuchecks daily 05/05/2015 Appointment: Belia Reid WPtel: [address] [place], [place] [address] US FOLLOW UP 05/05/2015 Patient Education: Patient Medication Summary Completed 05/05/2015 Care Plan: US EXAM ABDOM COMPLETE LOINC : 22177-5 Ordered 05/05/2015 Visit Plan: Start Januvia 100mg daily [place] with diflucan and culture urine Accuchecks daily alternating times Recheck 6weeks 03/30/2015 Appointment: Belia Reid WPtel: [address] [place], [place] [phone] [place] 03/29 confirmed~lb FOLLOW UP 03/30/2015 Patient Education: Patient Medication Summary Completed 03/30/2015 Appointment: Belia Reid WPtel: [address] [place], [place] [phone] [place] 03/01 needs reschedule due to payment and insurance ~sl FOLLOW UP 03/02/2015 Visit Plan: Patient was just in ER last night so has not filled scripts yet Start Carafate and Flagyl and Cipro Add Hyophen 1 po BID Recheck 1mo 02/03/2015 Appointment: Belia Reidtel: [address] [place], [place] [phone] 02/02lm ~sl...02/03/15 appt confirmed cn ACUTE I LLNESS 02/03/2015 Patient Education: Patient Medication Summary Completed 02/03/2015 Visit Plan: Warm soaks to vaginal area K elex and Diflucan and observe Zofran to use prn 12/29/2014 Appointment: Belia Reid WPtel: [address] [place], [place] [phone] 12/28 Confirmed ~sl ACUTE ILLNESS 12/29/2014 Patient Education: Patient Medication Summary Completed 12/29/2014 Appointment: Huong Osborne WPtel: [address] [place], [place] [phone] FOLLOW UP 09/24/2014 Appointment: Belia Reid WPtel: [address] [place], [place] [phone] 09/15 confirmed -mf FOLLOW UP 09/16/2014 Visit Plan: Increase requip to 2mg po BI D Increase lyrica to 225mg total a day by adding an extra 75mg in AM Recheck in 2weeks Continue to patch left eye while sleeping 09/02/2014 Appointment: Belia Reid WPtel: [address] [place], [place] [phone] 09/01 appt confirmed cn Hospital Follow Up 09/02 Patient Education: Patient Medication Summary Completed 09/02/2014 Visit Plan: To Via [facility]anna for observat ion to R/O CVA 08/25/2014 Appointment: Huong Osborne WPtel: [address] [place] [address] ACUTE ILLNESS 08/25/2014 Patient Education: Patient Medication Summary Completed 08/25/2014 Referral: Aaron Jonas WPtel: [facility] [address], [id number] In [place] location Initiated 04/26/2014 Referral: Brian Srinivasan WPtel: [place] [address] Referral Initiated 04/20/2014 Appointment: Belia Reid WPtel: [address] [place], [place] [phone] ER Follow UP 04/01/2014 Patient Education: Patient Medication Summary Completed 04/01/2014 Care Plan: MYELOGRAPHY NECK SPINE LOINC : 79139-1 Ordered 04/01/2014 Visit Plan: Continue Symbicort 160 at 2p BID Continue SVNs with duoneb at least QID Finish Levaquin Recheck 1mo on lyrica 03/16/2014 Appointment: Belia Reid WPtel: [address] [place] [address] 03/15 voicemail FOLLOW UP 03/16/2014 Patient Education: Patient Medication Summary Completed 03/16/2014 Visit Plan: Restart SVNs with duoneb QID Repeat prednisone Levaquin Continue symbicort Keep lyrica at same dose Recheck 1week 03/09/2014 Appointment: Belia Reid WPtel: [address] [place] [address] FOLLOW UP 03/09/2014 Patient Education: Patient Medication Summary Completed 03/09/2014 Appointment: Belia Reid WPtel: [address] [place], [place] [phone] 03/03 showed up 15 minutes late for appt -- put her on Huong's side for 10:45am FORGIVEN PER DR FOLLOW UP 03/03/2014 Appointment: Huong Osborne WPtel: [address] [place] [address] [place] FOLLOW UP 03/03/2014 Patient Education: Patient Medication Summary Completed 03/03/2014 Appointment: Huong Osborne WPtel: [address] [place] [address] ER Follow UP 03/01/2014 Patient Education: Patient Medication Summary Completed 03/01/2014 Visit Plan: Add carafate for this next m onth Increase lyrica to 150mg q HS 02/09/2014 Appointment: Belia Reidtel: [address] [place], [place] [phone] [facility] Follow Up 02/09/2014 Patient Education: Patient Medication Summary Completed 02/09/2014 Visit Plan: Increase omeprazole back to 40mg po BID Use requip in AM and add lyrica 75mg q HS Recheck 1mo 12/23/2013 Appointment: Belia Reid WPtel: [address] [place] [address] FOLLOW UP 12/23/2013 Patient Education: Patient Medication Summary Completed 12/23/2013 Patient Education: Patient Medication Summary Completed 12/04/2013 Appointment: Belia Reid WPtel: [address] [place] [address] 10/30/2013 Patient Education: Patient Medication Summary Completed 10/30/2013 Appointment: Belia Reid WPtel: [address] [place] [address] 10/21/2013 Patient Education: Patient Medication Summary Completed 10/21/2013 Visit Plan: Cryotherapy as above TAC and hydroxyzine to use prn to itching spots and itching SKs Add Advair HFA 115/21 1 p BID 10/05/2013 Appointment: Belia Reid WPtel: [address] [place], [place] [phone] 10/01 pt called and confirmed ACUTE ILLNESS Patient Education: Patient Medication Summary Completed 10/05/2013 Appointment: Belia Reidtel: [address] [place], [place] [phone] will pay copay and part of past balance FOLLOW U P 08/04/2013 Patient Education: Patient Medication Summary Completed 08/04/2013 Appointment: Belia Reid WPtel: [address] [place], [place] [phone] [place] INJECTION 07/13/2013 Patient Education: Patient Medication Summary Completed 07/13/2013 Appointment: Huong Osborne WPtel: [address] [place], [place] [phone] [place] ACUTE ILLNESS 07/03/2013 Patient Education: Patient Medication Summary Completed 07/03/2013 Visit Plan: Cipro and culture urine 05/27/2013 Appointment: Huong Osborne WPtel: [address] [place], [place] [phone] [place] 05/26 confirmed appt and notified that balance and copywriter y is due at appt time FOLLOW UP 05/27/2013 Patient Education: Patient Medication Summary Completed 05/27/2013 Appointment: Belia Reid WPtel: [address] [place], [place] [id number] [place] UA 05/25/2013 Patient Education: Patient Medication Summary Completed 05/25/2013 Appointment: Belia Reid WPtel: [address] [place], [place] [id number] [place] INJECTION 05/04/2013 Patient Education: Patient Medication Summary Completed 05/04/2013 Appointment: Belia Reid WPtel: [address] [place], [place] [id number] [place] INJECTION 04/17/2013 Patient Education: Patient Medication Summary Completed 04/17/2013 Appointment: Belia Reid WPtel: [address] [place], [place] [id number] [place] INJECTION 04/15/2013 Appointment: Belia Reid WPtel: [address] [place], [place] [id number] [place] 04/02 FOLLOW UP 04/06/2013 Patient Education: Patient Medication Summary Completed 04/06/2013 Visit Plan: Obtain lab results including UA from [facility] 11/10/2012 Appointment: Belia Reid WPtel: [address] [place], [place] [id number] ER Follow UP 11/10/2012 Patient Education: Patient Medication Summary Completed 11/10/2012 Appointment: Belia Reidtel: [address] [place], [place] [id number] 10/30/12 patient canceled appt due to fin ances. Offered to work something out, patient declined-LB FOLLOW UP 11/05/2012 Visit Plan: Continue Bystolic at current dose Pt has fwup with Neurology on September 16 09/02/2012 Appointment: Belia Reid WPtel: [address] [place] [address] FOLLOW UP 09/02/2012 Patient Education: Patient Medication Summary Completed 09/02/2012 Visit Plan: Continue bystolic at 5mg hcris ly Sees Neurology tomorrow Use oxygen at bedtime 08/04/2012 Appointment: Belia Reid WPtel: [address] [place] [address] FOLLOW UP 08/04/2012 Patient Education: Patient Medication Summary Completed 08/04/2012 Appointment: Belia Reidtel: [address] [place] [address] Hospital fwup for 07/21/12. merged appointments FOLLOW UP 07/24/2012 Visit Plan: Start Bystolic 5mg daily for tachycardia Fwup with neurology for further workup Overnight O2 sat 07/21/2012 Appointment: Belia Reid WPtel: [address] [place], [place] [id number] Hospital Follow Up 07/21/2012 Patient Education: Patient Medication Summary Completed 07/21/2012 Visit Plan: SVN with Albuterol QID Add A velox 400mg daily Notify if worsens or persists 07/02/2012 Appointment: Belia Reidtel: [address] [place] [address] ACUTE ILLNESS 07/02/2012 Patient Education: Patient Medication Summary Completed 07/02/2012 Appointment: Belia Reid WPtel: [address] [place], [place] [id number] [place] INJECTION 06/25/2012 Patient Education: Patient Medication Summary Completed 06/25/2012 Appointment: Belia Reid [facility]Ptel[facility] [phone] [facility] [id number] FOLLOW UP 06/24/2012 Patient Education: Patient Medication Summary Completed 06/24/2012 Appointment: Belia Reid WPtel: [address] [place], [place] [id number] 05/19 left message FOLLOW UP 05/20/2012 Patient [...] TID 05/08/2012 Appointment: Belia Reid WPtel: [address] [place], [place] [id number] ACUTE ILLNESS 05/08/2012 Patient Education: Patient Medication Summary Completed 05/08/2012 Visit Plan: Continue current meds Contin ue lower dose on pain meds and Diazepam Still waiting on paperwork for botox for Migraines Will restart Neurontin at 600mg po q HS Pt going to stop Depakote due to can't afford 04/22/2012 Appointment: Belia Reid WPtel: [address] [place], [place] [id number] 04/21 Hospital Follow Up 04/22/2012 Patient Education: Patient Medication Summary Completed 04/22/2012 Visit Plan: Injection to shoulder as abo ve Continue current meds Has appointment with neurology on HAs in 02/13/2012 Appointment: Belia Reid WPtel: [address] [place], [place] [id number] Pt does not have $10 copay at [facility] t time - will bring it in next week. Kianna iqbal'ed this. - [place] FOLLOW UP 02/13/2012 Patient Education: Patient Medication Summary Completed 02/13/2012 Visit Plan: Proceed with headache specia list Change nexium to Protonix Phenergan to use prn Sumatriptan to use prn Pt still on Inderal 01/28/2012 Appointment: Belia Reid WPtel: [address] [place] [address] ER Follow UP 01/28/2012 Patient Education: Patient [...] for sleep 12/26/2011 Appointment: Belia Reid WPtel: [address] [place] [address] 12/24- appt. confirmed FOLLOW UP 2 Patient Education: Patient Medication Summary Completed 12/26/2011 Appointment: Belia Reid WPtel: [address] [place], [place] [id number] [place] FOLLOW UP 11/14/2011 Patient Education: Patient Medication Summary Completed 11/14/2011 Appointment: Belia Reid WPtel: [address] [place], [place] [id number] [place] FOLLOW UP 09/12/2011 Patient Education: Patient Medication Summary Completed 09/12/2011 Visit Plan: Supportive care Decrease Liseth catalino to 50mg q HS Decrease AM dose of Valium to 5mg q HS Use Endocet sparingly 08/15/2011 Appointment: Belia Reid WPtel: [address] [place], [place] [id number] ER Follow UP 08/15/2011 Patient Education: Patient Medication Summary Completed 08/15/2011 Appointment: Belia Reid WPtel: [address] [place] [address] [place] Spoke directly to patient yesterday and confirmed the appoin tment. jaguar ACUTE ILLNESS 08/09/2011 Patient Education: Patient Medication Summary Completed 08/09/2011 Appointment: Belia Reid WPtel: [address] [place] [address] Hospital Follow Up 07/03/2011 Patient Education: Patient Medication Summary Completed 07/03/2011 Appointment: Belia Reid WPtel: [address] [place] [address] FOLLOW UP 06/04/2011 Patient Education: Patient Medication Summary Completed 06/04/2011 Visit Plan: Pt. wants "allergy shot" but in fact wants steroid shot. Will take a break from "generic Zyrtec they are getting from [facility]" and try Singulair for 2 weeks. 05/03/2011 Appointment: Iraida Jones WPtel: [address] [place] [address] ACUTE ILLNESS 05/03/2011 Patient Education: Patient Medication Summary Completed 05/03/2011 Visit Plan: Neurontin 400mg q HS for 1we ek then 800mg q HS Decrease requip to 1mg q HS for 2wks then stop Fwup 2mos 04/05/2011 Appointment: Belia Reid WPtel: [address] [place] [address] FOLLOW UP 04/05/2011 Patient Education: Patient Medication Summary Completed 04/05/2011 Visit Plan: Trial of neurontin in 2wks C ontinue current meds for stomach Pt has procedure with Dr. Ortiz next week for stone removal 03/08/2011 Appointment: Belia Reid WPtel: [address] [place] [address] Hospital Follow Up 03/08/2011 Patient Education: Patient Medication Summary Completed 03/08/2011 Appointment: Belia Reid WPtel: [address] [place], [place] [id number] [place] FOLLOW UP 02/19/2011 Visit Plan: reports increased Topamax do se and still on Flagyl. for UTI. Encouraged pt. to see Dr. Lmoas. Pt. reports follow up with Dr. Ortega for follow up of EGD will refil Omeprazole BID dosing as she reports she was positive for pre-cancerous cells. Clindamycin as last report indicated Hong will try Clindamycin as not having success with Flagyl 01/24/2011 Appointment: Iraida Jones WPtel: [address] [place] [address] ACUTE ILLNESS 01/24/2011 Patient Education: Patient Medication Summary Completed 01/24/2011 Appointment: Belia Reid WPtel: [address] [place], [place] [id number] FOLLOW UP 01/02/2011 Patient Education: Patient Medication Summary Completed 01/02/2011 Appointment: Belia Reid WPtel: [address] [place], [place] [id number] FOLLOW UP 12/12/2010 Appointment: Belia Reid WPtel: [address] [place] [address] ACUTE ILLNESS 12/07/2010 Patient Education: Patient Medication Summary Completed 12/07/2010 Visit Plan: Increase Buspar to 10mg po B ID 11/16/2010 Appointment: Belia Reid WPtel: [address] [place], [place] [id number] FOLLOW UP 11/16/2010 Patient Education: Patient Medication Summary Completed 11/16/2010 Appointment: Iraida Jones WPtel: [address] [place], [place] [id number] ER Follow UP 11/02/2010 Patient Education: Patient Medication Summary Completed 11/02/2010 Visit Plan: Depo-Medrol/Kenalog given fo r allergies Add BuSpar for anxiety Oxycodone one p.o. q.i.d. for number 120 refilled 10/18/2010 Appointment: Belia Reid WPtel: [address] [place], [place] [phone] FOLLOW UP 10/18/2010 Patient Education: Patient Medication Summary Completed 10/18/2010 Visit Plan: Continue current meds Discus sed epidurals for back vs PT--will proceed with epidurals to thoracolumbar region to see if helps with pain 09/19/2010 Appointment: Belia Reid WPtel: [address] [place], [place] [id number] FOLLOW UP 09/19/2010 Patient Education: Patient Medication Summary Completed 09/19/2010 Visit Plan: DC MS contin Check CT scan t horacic spine Fwup pending above results 09/06/2010 Appointment: Belia Reid WPtel: [address] [place] [address] FOLLOW UP 09/06/2010 Patient Education: Patient Medication Summary Completed 09/06/2010 Visit Plan: Continue current meds Restar t MS contin 15mg po BID and use oxycodone prn Use daily senokot-s 2 po BID 08/10/2010 Appointment: Belia Reidtel: [address] [place] [id number] FOLLOW UP 08/10/2010 Patient Education: Patient Medication Summary Completed 08/10/2010 Visit Plan: Depomedrol/Kenalog given Pt sees ENT later this month Cont current meds Mammo scheduled 05/11/2010 Appointment: Belia Reid WPtel: [address] [place] [id number] FOLLOW UP 05/11/2010 Patient Education: Patient Medication Summary Completed 05/11/2010 Appointment: Belia Reid WPtel: [address] [place], [place] [id number] UA 05/04/2010 Patient Education: Patient Medication Summary Completed 05/04/2010 Visit Plan: Pt sent to lab for UA 04/28/2010 Appointment: Belia Reidtel: [address] [place], [place] [id number] [place] [address] 04/28/2010 Patient Education: Patient Medication Summary Completed 04/28/2010 Visit Plan: Check CT angiogram of chest Restart Advair Use proair prn Cont current meds Fwup with Card as schedulec 04/06/2010 Appointment: Belia Reid WPtel: [address] [place] [address] Follow Up 04/06/2010 Patient Education: Patient Medication Summary Completed 04/06/2010 Visit Plan: Paperwork filled out for pow erchair Depomedrol/kenalog given Pt sees ENT in 2wks to assess nasal obstruction problems 02/09/2010 Appointment: Belia Reidtel: [address] [place] [address] ESTABLISHED PATIENT 02/09/2010 Patient Education: Patient Medication Summary Completed 02/09/2010 Visit Plan: Change Elavil to Trazadone 1 50mg q HS Diflucan and nystatin for tinea cruris 01/05/2010 Appointment: Belia Reidtel: [address] [place] [address] FOLLOW UP 01/05/2010 Patient Education: Patient Medication Summary Completed 01/05/2010 Appointment: Belia Reidtel: [address] [place] [address] FOLLOW UP 12/07/2009 Patient Education: Patient Medication Summary Completed 12/07/2009 Appointment: Belia Reid WPtel: [address] [place] [address] FOLLOW UP 11/22/2009 Visit Plan: Cont current meds and await MRI results from Dr. Meadows's office and his final recommendations Will need to follow-up at later date on deviated septum 11/08/2009 Appointment: Belia Reid WPtel: [address] [place], [place] [id number] FOLLOW UP 11/08/2009 Patient Education: Patient Medication Summary Completed 11/08/2009 Visit Plan: Cont PT/OT See Neurosurgery Cont Dwain arora 10/24/2009 Appointment: Belia Reid WPtel: [address] [place], [place] [id number] FOLLOW UP 10/24/2009 Patient Education: Patient Medication Summary Completed 10/24/2009 Appointment: Belia Reid WPtel: [address] [place] [id number] [place] [address] Follow Up 10/17/2009 Appointment: Belia Reid WPtel: [address] [place], [place] [id number] ACUTE ILLNESS 07/25/2009 Patient Education: Patient Medication Summary Completed 07/25/2009 Appointment: Belia Reid WPtel: [address] [place] [id number] FOLLOW UP 05/26/2009 Patient Education: Patient Medication Summary Completed 05/26/2009 Referral: Chino Balderas WPtel: [address] [place], [place] [phone] [place] Referral Initiated Referral: Merry Vale WPtel: [facility] [id number] [place] Dr Vale will review referral and book appointment Completed Referral: Francisco Javier Yoder WPtel: [address] [id number] [place] Patient needs EGD insurance will not inc rease a medication unless this procedure results show a need Completed Referral: Francisco Javier Yoder WPtel: [address] [id number] [place] Referral Historical Reference Referral: Francisco Javier Yoder WPtel: [address] [id number] [place] Referral Initiated Instructions Comment . Xrays [...] last date of carotid doppler from her programmer and update if needed . Long discussion [...] from "generic Zyrtec they are getting from [facility]" and try Singulair for 2 weeks. . [...]
--- OUTSIDE RECORDS SUMMARY | 2019-08-27 08:13 | XMS REPORT | CCD ---
Author Author Diana Reid D.O. Organization [facility] Address [address] [place] [address] Phone Care Team Providers Care Housekeeping Aide Name Role Phone Belia Reid D.O., PP Unavailable CCM Unavailable Summary Purpose Interface Exchange Insurance Providers Payer name Policy type / Coverage type Covered green party ID Effective Begin Date Effective End Date [employer] MEDICARE Medicare Part B [id number] 2019 Unknown Family History Family History data not found Social History Social History Element Codes Description Effective Dates Tobacco history SNOMED CT: 610190723 Nonsmoker 09/13/2010 Allergies, Adverse Reactions, Alerts Substance Reaction Codes Entered Date Inactivated Date Status Eggs reaction [id number] 09/15/2015 No Inactive Date Active _ Unknown [...] Fill Instructions Singulair 10 mg tablet RxNorm: 566750 1 Tablet(s) Oral QPM 07/29/19 20 01/25/2020 Active diltiazem CD 240 mg capsule,extended release 24 hr RxNorm: 8 44409 1 Capsule(s) Oral QD 07/15/2019 01/10/2020 Active metoprolol tartrate 50 mg tablet RxNorm: 753531 1 Table t(s) Oral two times a day 07/06/2019 No Stop Date Active Novolin N NPH U-100 Insulin isophane 100 unit/mL subcu taneous susp RxNorm: 632119 25 Unit(s) Subcutaneous two times a day 07/06/2019 07/06/2019 I nactive Colestid 1 gram tablet RxNorm: 3996368 1 Tablet(s) Oral two times a day for diarrhea 07/06/2019 09/04/2019 Active Ativan 0.5 mg tablet RxNorm: 192865 1 Tablet(s) Oral th ree times a day for anxiety/shortness of air/stridor 06/25/2019 07/25/2019 Inactive pramipexole 1 mg tablet RxNorm: 507306 1 Tablet(s) Oral QPM FOR RESTLESS LEGS (REPLACES REQUIP) 06/25/2019 06/19/2020 Active hydroxyzine HCl 25 mg tablet RxNorm: 424593 1 Tablet(s) Oral QPM for itching/aniety 06/25/2019 09/23/2019 Active Levaquin 500 mg tablet RxNorm: 738565 1 Tablet(s) Oral QD 06/16/2019 06/23/2019 Inactive Flagyl 500 mg tablet RxNorm: 426287 1 Tablet(s) Oral three time s a day 06/16/2019 06/23/2019 Inactive Vancocin 125 mg capsule RxNorm: 576800 1 Capsule(s) Oral four t imes a day 06/08/2019 06/18/2019 Inactive omeprazole 40 mg capsule,delayed release RxNorm: 367282 1 Capsule(s) Oral two times a day 05/26/2019 11/21/2019 Active Flagyl 500 mg tablet RxNorm: 608104 1 Tablet(s) Oral three time s a day 05/26/2019 06/05/2019 Inactive diltiazem CD 240 mg capsule,extended release 24 hr RxNorm: 8 10312 1 Capsule(s) Oral QD 05/26/2019 07/14/2019 Inactive Cipro 250 mg tablet RxNorm: 320402 1 Tablet(s) Oral two times a day 05/26/2019 06/02/2019 Inactive hydroxyzine HCl 25 mg tablet RxNorm: 156744 1 Tablet(s) Oral QPM for itching/aniety 05/21/2019 06/24/2019 Inactive metoprolol tartrate 25 mg tablet RxNorm: 577846 1 Table t(s) Oral two times a day 05/21/2019 07/05/2019 Inactive hydroxyzine HCl 25 mg tablet RxNorm: 446973 1 Tablet(s) Oral QPM for itching/aniety 05/13/2019 05/20/2019 Inactive Singulair 10 mg tablet RxNorm: 730232 1 Tablet(s) Oral QPM 05/06/19 20 05/12/2019 Inactive gabapentin 600 mg tablet RxNorm: 244010 1 Tablet(s) Oral QD 020 06/05/2019 Inactive Valium 5 mg tablet RxNorm: 835446 1 Tablet(s) Oral QPM for stri joao/muscle spasm 04/29/2019 06/24/2019 Inactive baclofen 10 mg tablet RxNorm: 496850 1 Tablet(s) Oral QPM for s pasm/neck pain 04/24/2019 05/23/2019 Inactive baclofen 10 mg tablet RxNorm: 021292 1 Tablet(s) Oral QPM for s pasm/neck pain 04/24/2019 04/23/2019 Inactive Novolin N NPH U-100 Insulin isophane 100 unit/mL subcu taneous susp RxNorm: 913568 23 Unit(s) Subcutaneous two times a day 04/20/2019 07/05/2019 I nactive cyclobenzaprine 5 mg tablet RxNorm: 806781 1 Tablet(s) Oral three times a day as needed 04/16/2019 04/23/2019 Inactive hydroxyzine HCl 25 mg tablet RxNorm: 458320 1 Tablet(s) Oral three times a day for itching/aniety 04/08/2019 05/12/2019 Inactive gabapentin 600 mg tablet RxNorm: 124121 1 Tablet(s) Oral two ti mes a day 04/08/2019 05/05/2019 Inactive gabapentin 600 mg tablet RxNorm: 117891 1 Tablet(s) Oral two ti mes a day 04/08/2019 04/07/2019 Inactive Novolin N NPH U-100 Insulin isophane 100 unit/mL subcu taneous susp RxNorm: 393768 10 Unit(s) Subcutaneous two times a day 03/03/2019 04/19/2019 I nactive gabapentin 300 mg capsule RxNorm: 953721 1 Capsule(s) O ral every night at bedtime for neuropathy 02/26/2019 04/07/2019 Inactive gabapentin 300 mg capsule RxNorm: 814350 1 Capsule(s) O ral every night at bedtime for neuropathy 02/20/2019 02/25/2019 Inactive buspirone 5 mg tablet RxNorm: 588766 TAKE 1 TABLET THREE TIMES MILDRED Y 02/12/2019 05/12/2019 Inactive pramipexole 1 mg tablet RxNorm: 325890 1 Tablet(s) Oral QPM FOR RESTLESS LEGS (REPLACES REQUIP) 02/12/2019 06/24/2019 Inactive Lexapro 10 mg tablet RxNorm: 824085 TAKE 1 TABLET EVERY DAY FOR MOO D 01/31/2019 No Stop Date Active Ativan 0.5 mg tablet RxNorm: 664506 TAKE 1 TABLET BY MO UTH THREE TIMES DAILY NEEDED FOR ANXIETY 01/26/2019 04/28/2019 Inactive Ativan 0.5 mg tablet RxNorm: 147055 TAKE 1 TABLET BY MO UTH THREE TIMES DAILY NEEDED FOR ANXIETY 01/05/2019 01/05/2019 Inactive Levaquin 500 mg tablet RxNorm: 918672 1 Tablet(s) Oral QD 12/25/2018 12/24/2018 Inactive Levaquin 500 mg tablet RxNorm: 850302 1 Tablet(s) Oral QD 12/25/2018 01/04/2019 Inactive baclofen 10 mg tablet RxNorm: 675785 1 Tablet(s) Oral three maico es a day 11/20/2018 01/19/2019 Inactive Ativan 0.5 mg tablet RxNorm: 657623 TAKE 1 TABLET BY MO UTH THREE TIMES DAILY NEEDED FOR ANXIETY 11/20/2018 01/04/2019 Inactive gabapentin 300 mg capsule RxNorm: 146154 1 Capsule(s) O ral every night at bedtime for neuropathy 11/20/2018 12/20/2018 Inactive Lexapro 10 mg tablet RxNorm: 434694 1 Tablet(s) PO QD for mood 07/201801/30/2019 Inactive Zithromax Z-Lj 250 mg tablet RxNorm: 869958 Tablet(s) PO take as directed 11/04/2018 11/19/2018 Inactive Insulin Syringe 1 mL 29 gauge x 1/2" RxNorm: 2 s yringes daily with insulin Dx: E11.65 10/08/2018 No Stop Date Active gabapentin 300 mg capsule RxNorm: 087181 1 Capsule(s) PO QHS fo r neuropathy 09/18/2018 10/17/2018 Inactive cyclobenzaprine 5 mg tablet RxNorm: 043567 1 Tablet(s) PO TID a s needed 09/09/2018 09/08/2018 Inactive cyclobenzaprine 5 mg tablet RxNorm: 178232 1 Tablet(s) PO TID a s needed 09/09/2018 10/08/2018 Inactive prednisone 20 mg tablet RxNorm: 336834 1 Tablet(s) PO QD 09/08/2018 0 09/12/2018 Inactive Lantus Solostar U-100 Insulin 100 unit/mL (3 mL) subcu taneous pen RxNorm: 058087 55 Unit(s) SQ QAM 08/28/2018 11/03/2018 Inactive hydroxyzine HCl 25 mg tablet RxNorm: 433475 1 Tablet(s) PO QHS for itching 08/20/2018 05/12/2019 Inactive Lexapro 10 mg tablet RxNorm: 414971 1 Tablet(s) PO QD for mood 08/0210/18/2018 Inactive sumatriptan 100 mg tablet RxNorm: 793087 1 Tablet(s) PO at headache onset. May repeat 1 in two hours if headache remains. Max of 2 per 24 hours 04/02/2018 05/20/2018 Inactive Diflucan 150 mg tablet RxNorm: 826362 1 Tablet(s) PO QD 03/18/2018 Inactive Diflucan 150 mg tablet RxNorm: 802352 1 Tablet(s) PO QD 03/18/2018 Inactive Flagyl 500 mg tablet RxNorm: 806207 1 Tablet(s) PO TID 03/17/2018 Inactive Levaquin 500 mg tablet RxNorm: 828156 1 Tablet(s) PO QD 03/17/2018 Inactive Levaquin 500 mg tablet RxNorm: 581994 1 Tablet(s) PO QD 03/17/2018 Inactive Flagyl 500 mg tablet RxNorm: 227150 1 Tablet(s) PO TID 03/17/2018 Inactive ketoconazole 200 mg tablet RxNorm: 997261 1 Tablet(s) PO QD 019 03/19/2018 Inactive Celebrex 200 mg capsule RxNorm: 483467 1 Capsule(s) PO BID 02/06/20 18 05/20/2018 Inactive tramadol 50 mg tablet RxNorm: 318821 1 Tablet(s) PO TID as needed 1 04/08/2017 05/20/2018 Inactive gabapentin 300 mg capsule RxNorm: 770530 1 Capsule(s) PO BID 201705/20/2018 Inactive Diflucan 150 mg tablet RxNorm: 368614 1 Tablet(s) PO QD 01/20/2018 Inactive pramipexole 1 mg tablet RxNorm: 627077 1 Tablet(s) PO Q PM FOR RESTLESS LEGS (REPLACES REQUIP) 01/08/2018 02/11/2019 Inactive cyclobenzaprine 10 mg tablet RxNorm: 303930 1 Tablet(s) PO TID as needed for muscle spasm 12/17/2017 05/20/2018 Inactive pramipexole 1 mg tablet RxNorm: 060793 TAKE 1 TABLET BY MOUTH ONCE DAILY IN THE EVENING FOR RESTLESS LEGS (REPLACES REQUIP) 12/04/2017 01/05/2018 Inac tive Amaryl 4 mg tablet RxNorm: 223990 1 Tablet(s) PO BID replaces 2mg 0 11/05/2017 12/16/2017 Inactive Singulair 10 mg tablet RxNorm: 665089 1 Tablet(s) PO QHS for al lergies/lungs 10/30/2017 12/16/2017 Inactive Diflucan 100 mg tablet RxNorm: 412202 1 Tablet(s) PO QD 10/23/2017 Inactive Ativan 0.5 mg tablet RxNorm: 405542 TAKE 1 TABLET BY MOUTH THRE E TIMES DAILY 08/30/2017 11/20/2018 Inactive buspirone 5 mg tablet RxNorm: 175471 1 Tablet(s) PO TID 07/11/2017 Inactive propranolol 60 mg tablet RxNorm: 394967 1 Tablet(s) PO BID repl aces 40mg dose 06/26/2017 12/16/2017 Inactive Amaryl 4 mg tablet RxNorm: 473861 1 Tablet(s) PO BID replaces 2mg 0 06/12/2017 11/05/2017 Inactive omeprazole 40 mg capsule,delayed release RxNorm: 457395 1 Capsule(s) PO BID TAKE ONE CAPSULE BY MOUTH TWICE DAILY 05/30/2017 11/25/2017 Inactive pramipexole 1 mg tablet RxNorm: 248069 1 Tablet(s) PO Q PM for restless legs--replaces requip 05/30/2017 11/25/2017 Inactive amitriptyline 50 mg tablet RxNorm: 986530 1 Tablet(s) PO QHS 201709/16/2017 Inactive Diflucan 100 mg tablet RxNorm: 277395 1 Tablet(s) PO BID 05/07/2017 0 05/20/2017 Inactive nystatin (bulk) 100 million unit powder RxNorm: Application TO P BID 05/07/2017 05/20/2018 Inactive cholestyramine (with sugar) 4 gram oral powder RxNorm: 666423 1 Unit Dose PO QD 05/07/2017 01/20/2018 Inactive Ativan 0.5 mg tablet RxNorm: 156575 TAKE ONE TABLET BY MOUTH TH REE TIMES DAILY 05/01/2017 09/02/2017 Inactive Trulicity 1.5 mg/0.5 mL subcutaneous pen injector RxNorm: 15 17694 1 Unit Dose SQ WEEKLY 02/22/2017 03/23/2017 Inactive doxycycline hyclate 100 mg capsule RxNorm: 7922872 1 Capsule(s) PO BID 01/23/2017 02/05/2017 Inactive Amaryl 4 mg tablet RxNorm: 902420 1 Tablet(s) PO BID replaces 2mg 1 03/25/2016 05/22/2017 Inactive magnesium oxide 400 mg capsule RxNorm: 221638 1 Capsule(s) PO QD 07/18/2017 Inactive Ativan 0.5 mg tablet RxNorm: 414185 TAKE ONE TABLET BY MOUTH TH REE TIMES DAILY 01/17/2017 05/01/2017 Inactive Amaryl 2 mg tablet RxNorm: 516333 1 Tablet(s) PO BID 12/27/201601/22 Inactive Amaryl 2 mg tablet RxNorm: 087095 1 Tablet(s) PO BID 12/26/201612/26 Inactive Ativan 0.5 mg tablet RxNorm: 232416 TAKE ONE TABLET BY MOUTH TH REE TIMES DAILY 12/05/2016 01/18/2017 Inactive pramipexole 1 mg tablet RxNorm: 955049 1 Tablet(s) PO Q PM for restless legs--replaces requip 11/26/2016 05/30/2017 Inactive Mobic 15 mg tablet RxNorm: 569562 1 Tablet(s) PO QD 10/08/20162016 Inactive cyclobenzaprine 5 mg tablet RxNorm: 134922 1/2- 1 Tablet(s) PO TID 10/08/2016 10/17/2016 Inactive Ativan 0.5 mg tablet RxNorm: 492201 1 Tablet(s) PO TID 09/20/201607/2016 Inactive amitriptyline 50 mg tablet RxNorm: 617694 1 Tablet(s) PO QHS 201605/30/2017 Inactive propranolol 60 mg tablet RxNorm: 054285 1 Tablet(s) PO BID repl aces 40mg dose 09/19/2016 06/26/2017 Inactive Ativan 0.5 mg tablet RxNorm: 027253 1 Tablet(s) PO TID 08/20/2016 Inactive omeprazole 40 mg capsule,delayed release RxNorm: 927490 1 Capsule(s) PO BID TAKE ONE CAPSULE BY MOUTH TWICE DAILY 08/20/2016 05/30/2017 Inactive amitriptyline 50 mg tablet RxNorm: 154438 1 Tablet(s) PO QHS 201609/18/2016 Inactive pramipexole 1 mg tablet RxNorm: 686151 1 Tablet(s) PO Q PM for restless legs--replaces requip 07/23/2016 11/25/2016 Inactive Amaryl 2 mg tablet RxNorm: 753263 1 Tablet(s) PO BID 07/23/201612/27 Inactive propranolol 40 mg tablet RxNorm: 010220 1 Tablet(s) PO BID 07/13/19 17 09/18/2016 Inactive Ativan 0.5 mg tablet RxNorm: 080712 1 Tablet(s) PO QID 06/19/2016 Inactive Amaryl 2 mg tablet RxNorm: 997982 1 Tablet(s) PO BID 06/19/201607/22 Inactive Ativan 0.5 mg tablet RxNorm: 418653 1 Tablet(s) PO QID 06/19/2016 Inactive buspirone 5 mg tablet RxNorm: 964573 1 Tablet(s) PO TID 06/19/2016 Inactive Ativan 0.5 mg tablet RxNorm: 140703 1 Tablet(s) PO BID 05/24/2016 Inactive buspirone 5 mg tablet RxNorm: 818127 1 Tablet(s) PO TID 05/23/2016 Inactive Macrobid 100 mg capsule RxNorm: 156100 1 Capsule(s) PO QOD 05/03/19 17 10/07/2016 Inactive pramipexole 1 mg tablet RxNorm: 575709 Tablet(s) 1 Tabl et(s) PO QPM for restless legs--replaces requip 04/26/2016 06/24/2016 Inactive propranolol 40 mg tablet RxNorm: 021813 TAKE ONE TABLET BY MOUT H TWICE DAILY 04/26/2016 06/24/2016 Inactive Detrol LA 4 mg capsule,extended release RxNorm: 942738 1 Capsul e(s) PO QHS 04/03/2016 05/02/2016 Inactive prednisone 20 mg tablet RxNorm: 172956 1 Tablet(s) PO QD 02/29/2016 0 03/04/2016 Inactive Actos 30 mg tablet RxNorm: 475818 TAKE ONE TABLET BY MOUTH ONCE DAILY 02/27/2016 12/19/2016 Inactive clindamycin 300 mg capsule RxNorm: 171117 1 Capsule(s) PO TID 02/0102/08/2016 Inactive Flagyl 500 mg tablet RxNorm: 322136 1 Tablet(s) PO BID 02/02/201609/2015 Inactive omeprazole 40 mg capsule,delayed release RxNorm: 768979 TAKE ONE CAPSULE BY MOUTH TWICE DAILY 01/15/2016 07/12/2016 Inactive gabapentin 300 mg capsule RxNorm: 391572 1 Capsule(s) PO QAM an d 2 po q HS 01/05/2016 06/18/2016 Inactive gabapentin 300 mg capsule RxNorm: 958480 1 Capsule(s) P O BID 1 Capsule(s) PO QHS 12/05/2015 01/04/2016 Inactive cyclobenzaprine 10 mg tablet RxNorm: 192024 1 Tablet(s) PO TID for spasm as needed for muscle spasm 12/05/2015 06/18/2016 Inactive ciprofloxacin 250 mg tablet RxNorm: 856029 1 Tablet(s) PO BID 12/0412/14/2015 Inactive pramipexole 1 mg tablet RxNorm: 937491 Tablet(s) 1 Tabl et(s) PO QPM for restless legs--replaces requip 11/07/2015 11/26/2016 Inactive Januvia 100 mg tablet RxNorm: 709099 1 Tablet(s) PO QD 10/26/201504/2015 Inactive propranolol 40 mg tablet RxNorm: 694745 TAKE ONE TABLET BY MOUT H TWICE DAILY 10/25/2015 04/21/2016 Inactive gabapentin 300 mg capsule RxNorm: 992468 1 Capsule(s) PO QHS 201512/04/2015 Inactive Cipro 500 mg tablet RxNorm: 254501 1 Tablet(s) PO BID 10/05/201511/2015 Inactive pramipexole 1 mg tablet RxNorm: 396606 Tablet(s) 1 Tabl et(s) PO QPM for restless legs--replaces requip 10/04/2015 11/02/2015 Inactive propranolol 40 mg tablet RxNorm: 588813 TAKE ONE TABLET BY MOUT H TWICE DAILY 09/26/2015 10/24/2015 Inactive Amaryl 2 mg tablet RxNorm: 183167 1 Tablet(s) PO QD 09/15/20152016 Inactive gabapentin 300 mg capsule RxNorm: 737257 1 Capsule(s) PO QHS 201510/14/2015 Inactive buspirone 5 mg tablet RxNorm: 720715 1 Tablet(s) PO TID 09/15/2015 Inactive pramipexole 1 mg tablet RxNorm: 963299 Tablet(s) 1 Tabl et(s) PO QPM for restless legs--replaces requip 09/08/2015 10/03/2015 Inactive pramipexole 1 mg tablet RxNorm: 174924 1 Tablet(s) PO Q PM for restless legs--replaces requip 08/08/2015 09/08/2015 Inactive Amaryl 2 mg tablet RxNorm: 174350 1 Tablet(s) PO QD 07/07/20152015 Inactive pramipexole 1 mg tablet RxNorm: 612545 1 Tablet(s) PO Q PM for restless legs--replaces requip 07/05/2015 08/03/2015 Inactive ropinirole 2 mg tablet RxNorm: 267590 TAKE ONE TABLET BY MOUTH TWICE DAILY 05/09/2015 09/14/2015 Inactive Diflucan 100 mg tablet RxNorm: 043361 1 Tablet(s) PO QD 03/30/2015 Inactive propranolol 40 mg tablet RxNorm: 157674 1 Tablet(s) PO BID 02/24/2008/21/2015 Inactive [SAVINGS FOR UNINSURED PATIE NTS -- BIN:619103, PCN: ASPBILLY1, Group: KARIN, ID# [id number], Process claim through [employer], for questions: . THIS IS NOT INSURANCE.] Flagyl 500 mg tablet RxNorm: 020521 1 Tablet(s) PO BID 02/03/201502/2015 Inactive Cipro 500 mg tablet RxNorm: 907663 1 Tablet(s) PO BID 02/03/201502/01 Inactive Carafate 1 gram tablet RxNorm: 371785 1 Tablet(s) PO QID make i nto slurry 02/03/2015 09/14/2015 Inactive ondansetron HCl 4 mg tablet RxNorm: 842524 1 Tablet(s) PO Q4H as needed for nausea 12/29/2014 01/04/2016 Inactive Diflucan 100 mg tablet RxNorm: 158266 1 Tablet(s) PO QD 12/29/2014 Inactive Keflex 500 mg capsule RxNorm: 547311 1 Capsule(s) PO TID 12/29/2014 1 03/09/2014 Inactive omeprazole 40 mg capsule,delayed release RxNorm: 221803 1 Capsu le(s) PO BID 12/27/2014 12/21/2015 Inactive [SAVINGS FOR UNINSUR ED PATIENTS -- BIN:267601, PCN: ASPROD1, Group: AME08, ID# [id number], Process claim through [employer], for questions: . THIS IS NOT INSURANCE.] ropinirole 2 mg tablet RxNorm: 364015 1 Tablet(s) PO BID 09/29/2014 0 03/27/2015 Inactive [SAVINGS FOR UNINSURED PATIENTS -- BIN:0 64878, PCN: ASPROD1, Group: AME08, ID# [id number], Process claim through [employer], for questions: . THIS IS NOT INSURANCE.] buspirone 5 mg tablet RxNorm: 092979 1 Tablet(s) PO TID 09/17/2014 Inactive ropinirole 2 mg tablet RxNorm: 659509 1 Tablet(s) PO BID 09/02/2014 0 09/28/2014 Inactive [SAVINGS FOR UNINSURED PATIENTS -- BIN:0 26464, PCN: ASPROD1, Group: AME08, ID# [id number], Process claim through [employer], for questions: . THIS IS NOT INSURANCE.] Zyrtec 10 mg tablet RxNorm: 6527968 1 Tablet(s) PO QD 09/02/201412/02 Inactive propranolol 40 mg tablet RxNorm: 650176 1 Tablet(s) PO BID 07/21/19 15 02/23/2015 Inactive [SAVINGS FOR UNINSURED PATIE NTS -- BIN:044235, PCN: ASPROD1, Group: AME08, ID# [id number], Process claim through [employer], for questions: . THIS IS NOT INSURANCE.] ropinirole 2 mg tablet RxNorm: 097033 1 Tablet(s) PO QHS 05/14/2014 0 09/01/2014 Inactive [SAVINGS FOR UNINSURED PATIENTS -- BIN:0 81162, PCN: ASPROD1, Group: AME08, ID# [id number], Process claim through [employer], for questions: . THIS IS NOT INSURANCE.] cyclobenzaprine 10 mg tablet RxNorm: 196897 1 Tablet(s) PO QHS for spasm 04/06/2014 09/01/2014 Inactive ipratropium-albuterol 0.5 mg-3 mg(2.5 mg base)/3 mL ne bulization soln RxNorm: 0763233 1 Unit Dose INH Q4H 03/16/2014 No Stop Date Active [SAVINGS FOR UNINSURED PATIENTS -- BIN:248795, PCN: ASPROD1, Group: AME08, ID# [id number], Process claim through [employer], for questions: . THIS IS NOT INSURANCE.] prednisone 20 mg tablet RxNorm: 460676 1 Tablet(s) PO BID 03/09/2014 03/15/2014 Inactive [SAVINGS FOR UNINSURED PATIENTS -- BIN:0 25411, PCN: ASPROD1, Group: AME08, ID# [id number], Process claim through [employer], for questions: . THIS IS NOT INSURANCE.] ipratropium-albuterol 0.5 mg-3 mg(2.5 mg base)/3 mL ne bulization soln RxNorm: 2795937 1 Unit Dose INH Q4H 03/09/2014 03/15/2014 Inactive [SAVINGS FOR UNINSURED PATIENTS -- BIN:198233, PCN: ASPROD1, Group: AME08, ID# [id number], Process claim through [employer], for questions: . THIS IS NOT INSURANCE.] Levaquin 500 mg tablet RxNorm: 990795 1 Tablet(s) PO QD 03/09/2014 Inactive [SAVINGS FOR UNINSURED PATIENTS -- BIN:0 62987, PCN: ASPROD1, Group: AME08, ID# [id number], Process claim through [employer], for questions: . THIS IS NOT INSURANCE.] Carafate 1 gram tablet RxNorm: 581718 1 Tablet(s) PO AC & HS ma ke into slurry 02/09/2014 09/01/2014 Inactive [SAVINGS FOR UNINSUR ED PATIENTS -- BIN:454481, PCN: ASPROD1, Group: AME08, ID# [id number], Process claim through [employer], for questions: . THIS IS NOT INSURANCE.] Fioricet 50 mg-300 mg-40 mg capsule RxNorm: 1007060 1-2 Capsule(s) PO Q4H as needed for headache --max of 6 a day 02/09/2014 09/01/2014 Inactive [SAVINGS FOR UNINSURED PATIENTS -- BIN:149862, PCN: ASPROD1, Group: AME08, ID# [id number], Process claim through [employer], for questions: . THIS IS NOT INSURANCE.] propranolol 40 mg tablet RxNorm: 225064 1 Tablet(s) PO BID 12/08/19 14 06/04/2014 Inactive [SAVINGS FOR UNINSURED PATIE NTS -- BIN:479859, PCN: ASPROD1, Group: AME08, ID# [id number], Process claim through [employer], for questions: . THIS IS NOT INSURANCE.] buspirone 5 mg tablet RxNorm: 381159 1 Tablet(s) PO TID 12/02/2013 Inactive omeprazole 40 mg capsule,delayed release RxNorm: 204692 1 Capsu le(s) PO BID 11/25/2013 11/19/2014 Inactive [SAVINGS FOR UNINSUR ED PATIENTS -- BIN:749485, PCN: ASPROD1, Group: AME08, ID# [id number], Process claim through [employer], for questions: . THIS IS NOT INSURANCE.] ropinirole 2 mg tablet RxNorm: 170746 1 Tablet(s) PO QHS 11/10/2013 0 05/08/2014 Inactive [SAVINGS FOR UNINSURED PATIENTS -- BIN:0 99674, PCN: ASPROD1, Group: AME08, ID# [id number], Process claim through [employer], for questions: . THIS IS NOT INSURANCE.] Cipro 500 mg tablet RxNorm: 052983 1 Tablet(s) PO BID 10/21/201312/03 Inactive [SAVINGS FOR UNINSURED PATIENTS -- BIN:0 46082, PCN: ASPROD1, Group: AME08, ID# [id number], Process claim through [employer], for questions: . THIS IS NOT INSURANCE.] hydroxyzine HCl 25 mg tablet RxNorm: 284550 1 Tablet(s) PO Q4-6 H as needed 10/05/2013 01/04/2016 Inactive [SAVINGS FOR UNINSUR ED PATIENTS -- BIN:240051, PCN: ASPROD1, Group: AME08, ID# [id number], Process claim through [employer], for questions: . THIS IS NOT INSURANCE.] triamcinolone acetonide 0.1 % topical cream RxNorm: 0320705 Appl ication TOP BID 10/05/2013 09/01/2014 Inactive [SAVINGS FOR UNINSUR ED PATIENTS -- BIN:146759, PCN: ASPROD1, Group: AME08, ID# [id number], Process claim through [employer], for questions: . THIS IS NOT INSURANCE.] albuterol sulfate HFA 90 mcg/actuation aerosol inhaler RxNor m: 3971351 2 Puff(s) INH Q4H as needed for cough 10/01/2013 12/22/2013 Inactive [MAKSIM INGS FOR UNINSURED PATIENTS -- BIN:499059, PCN: ASPROD1, Group: AME08, ID# [id number], Process claim through [employer], for questions: . THIS IS NOT INSURANCE.] propranolol 40 mg tablet RxNorm: 881960 1 Tablet(s) PO BID 09/02/19 14 11/29/2013 Inactive [SAVINGS FOR UNINSURED PATIE NTS -- BIN:933887, PCN: ASPROD1, Group: AME08, ID# [id number], Process claim through [employer], for questions: . THIS IS NOT INSURANCE.] propranolol 40 mg tablet RxNorm: 623098 1 Tablet(s) PO BID 08/05/19 14 08/31/2013 Inactive [SAVINGS FOR UNINSURED PATIE NTS -- BIN:173981, PCN: ASPROD1, Group: AME08, ID# [id number], Process claim through [employer], for questions: . THIS IS NOT INSURANCE.] Toprol XL 50 mg tablet,extended release RxNorm: 490032 1 Tablet (s) PO QHS 07/23/2013 08/03/2013 Inactive Macrobid 100 mg capsule RxNorm: 963013 1 Capsule(s) PO BID 07/04/19 14 07/09/2013 Inactive Toprol XL 50 mg tablet,extended release RxNorm: 075707 1 Tablet (s) PO QHS 05/28/2013 06/26/2013 Inactive ciprofloxacin 500 mg tablet RxNorm: 523692 1 Tablet(s) PO BID 05/2706/02/2013 Inactive Bystolic 5 mg tablet RxNorm: 937156 1 Tablet(s) PO QD 05/27/201305/03 Inactive ropinirole 2 mg tablet RxNorm: 082571 1 Tablet(s) PO QHS 04/22/2013 0 11/09/2013 Inactive Cipro 250 mg tablet RxNorm: 659076 1 Tablet(s) PO BID 04/06/201311/2013 Inactive ropinirole 2 mg tablet RxNorm: 150404 1 Tablet(s) PO QHS 02/17/2013 0 04/21/2013 Inactive Amaryl 2 mg tablet RxNorm: 778321 1 Tablet(s) PO QAM 11/11/201211/10 Inactive Amaryl 2 mg tablet RxNorm: 975982 1 Tablet(s) PO QAM 11/11/201204/05 Inactive omeprazole 40 mg capsule,delayed release RxNorm: 749291 1 Capsu le(s) PO BID 08/14/2012 08/08/2013 Inactive Bystolic 5 mg tablet RxNorm: 589416 1 Tablet(s) PO QD 08/14/201205/03 Inactive propranolol 60 mg tablet RxNorm: 262927 Tablet(s) PO TAKE 1 TAB LET TWICE DAILY 08/01/2012 09/01/2012 Inactive Bystolic 5 mg tablet RxNorm: 326288 1 Tablet(s) PO QD 07/21/201207/02 Inactive Bystolic 5 mg tablet RxNorm: 064372 1 Tablet(s) PO QD 07/21/201207/03 Inactive Prilosec 40 mg capsule,delayed release RxNorm: 985520 1 Capsule (s) PO BID 06/24/2012 07/21/2012 Inactive buspirone 10 mg tablet RxNorm: 888470 1 Tablet(s) PO TID 05/08/2012 0 05/23/2016 Inactive Valium 10 mg tablet RxNorm: 055290 1 Tablet(s) PO BID 04/02/201207/03 Inactive Endocet 10 mg-325 mg tablet RxNorm: 2911703 1 Tablet(s) PO QID 03/0607/21/2012 Inactive as needed for severe pain Valium 10 mg tablet RxNorm: 100876 1 Tablet(s) PO BID 02/27/2012 No S top Date Active Endocet 10 mg-325 mg tablet RxNorm: 9080575 1 Tablet(s) PO QID 02/0203/27/2012 Inactive as needed for severe pain Endocet 10 mg-325 mg tablet RxNorm: 7236178 1 Tablet(s) PO QID 01/0302/26/2012 Inactive as needed for severe pain Valium 10 mg tablet RxNorm: 529160 1 Tablet(s) PO BID 01/29/2012 No S top Date Active Protonix 40 mg tablet,delayed release RxNorm: 713284 1 Tablet(s ) PO QD 01/28/2012 07/21/2012 Inactive metformin ER 500 mg tablet,extended release 24 hr RxNorm: 86 0977 1 Tablet(s) PO QD 12/26/2011 07/20/2012 Inactive Trazadone 150 mg Tablet RxNorm: 1 Tablet(s) PO QHS prn sleep 1 04/23/2012 Inactive Endocet 10 mg-325 mg tablet RxNorm: 1705798 1 Tablet(s) PO QID 12/0301/24/2012 Inactive as needed for severe pain Nexium 40 mg capsule,delayed release RxNorm: 028929 1 Capsule(s ) PO QD 12/26/2011 01/27/2012 Inactive Symbicort 160 mcg-4.5 mcg/actuation HFA Aerosol Inhaler RxNo rm: 6188828 2 Puff(s) INH BID 12/04/2011 07/21/2012 Inactive Endocet 10 mg-325 mg tablet RxNorm: 7177558 1 Tablet(s) PO QID 11/0312/25/2011 Inactive as needed for severe pain metformin ER 500 mg tablet,extended release 24 hr RxNorm: 86 0977 1 Tablet(s) PO QD 11/20/2011 12/19/2011 Inactive metformin ER 500 mg tablet,extended release 24 hr RxNorm: 86 0977 1 Tablet(s) PO QD 11/20/2011 11/19/2011 Inactive amitriptyline 100 mg tablet RxNorm: 220067 Tablet(s) PO QHS 1 a nd / tabs QHS 11/12/2011 11/13/2011 Inactive Valium 10 mg tablet RxNorm: 185878 1 Tablet(s) PO BID 11/09/2011 No S top Date Active Endocet 10 mg-325 mg tablet RxNorm: 5070072 1 Tablet(s) PO QID 10/0211/14/2011 Inactive as needed for severe pain Aricept 10 mg Tab RxNorm: 671000 1 Tablet(s) PO QD 10/05/2011 013 Inactive Valium 10 mg tablet RxNorm: 520345 1 Tablet(s) PO BID 10/05/2011 No S top Date Active Endocet 10 mg-325 mg Tab RxNorm: 5321440 1 Tablet(s) PO QID 012 10/09/2011 Inactive as needed for severe pain Aricept 10 mg Tab RxNorm: 628891 1 Tablet(s) PO QD 08/14/2011 012 Inactive Endocet 10 mg-325 mg Tab RxNorm: 3845051 1 Tablet(s) PO QID 012 08/31/2011 Inactive as needed for severe pain Valium 10 mg Tab RxNorm: 247055 1 Tablet(s) PO BID 08/02/2011 No Stop Date Active propranolol 60 mg tablet RxNorm: 842812 1 Tablet(s) PO BID 07/26/19 12 09/11/2011 Inactive amitriptyline 100 mg tablet RxNorm: 535580 Tablet(s) PO QHS 1 a nd 03/05 tabs QHS 06/20/2011 09/11/2011 Inactive buspirone 10 mg tablet RxNorm: 093769 1 Tablet(s) PO BID 06/18/2011 0 09/15/2011 Inactive propranolol 60 mg Tab RxNorm: 172057 1 Tablet(s) PO BID 06/18/2011 Inactive gabapentin 800 mg Tab RxNorm: 776294 1 Tablet(s) PO BID 06/18/2011 Inactive ropinirole 2 mg tablet RxNorm: 131564 1 Tablet(s) PO QHS 05/29/2011 0 08/26/2011 Inactive trimethoprim 100 mg Tab RxNorm: 907806 1 Tablet(s) PO QHS 05/29/2011 07/21/2012 Inactive Endocet 10 mg-325 mg Tab RxNorm: 7345005 1 Tablet(s) PO QID 012 2011 Inactive as needed for severe pain Valium 10 mg Tab RxNorm: 697538 1 Tablet(s) PO QHS N eed to take med as prescribed. this is a 40 day RX. No early fills. 05/17/2011 05/20/2018 Inactive propranolol 60 mg Tab RxNorm: 425757 1 Tablet(s) PO BID 04/16/2011 Inactive Neurontin 800 mg Tab RxNorm: 570238 1 Tablet(s) PO QHS 04/05/201103/2011 Inactive Endocet 10 mg-325 mg Tab RxNorm: 9765086 1 Tablet(s) PO QID 012 05/02/2011 Inactive as needed for severe pain oxycodone-acetaminophen 10 mg-325 mg tablet RxNorm: 2284005 1 Ta blet(s) PO Q4H 03/28/2011 05/19/2012 Inactive Valium 10 mg Tab RxNorm: 397586 1 Tablet(s) PO QHS 03/28/2011 012 Inactive buspirone 10 mg Tab RxNorm: 177281 1 Tablet(s) PO BID 03/27/201106/02 Inactive propranolol 60 mg Tab RxNorm: 073586 1 Tablet(s) PO BID 03/19/2011 Inactive Klor-Con M20 20 mEq Tab RxNorm: 6530243 1 Tablet(s) PO QD 03/19/2011 07/21/2012 Inactive Aricept 10 mg Tab RxNorm: 860503 1 Tablet(s) PO QD 02/27/2011 012 Inactive propranolol 60 mg Tab RxNorm: 027370 1 Tablet(s) PO BID 02/19/2011 Inactive omeprazole 40 mg capsule,delayed release RxNorm: 781031 1 Capsu le(s) PO BID 01/24/2011 05/23/2011 Inactive clindamycin 300 mg capsule RxNorm: 223158 1 Capsule(s) PO TID 01/2402/02/2011 Inactive propranolol 60 mg Tab RxNorm: 132281 1 Tablet(s) PO BID 01/22/2011 No Stop Date Active nystatin 100,000 unit/g Topical Cream RxNorm: 906742 Applicatio n TOP BID 01/15/2011 01/14/2011 Inactive to rash for 2-4 week s Diflucan 200 mg Tab RxNorm: 968716 1 Tablet(s) PO QD 01/15/201101/28 Inactive buspirone 10 mg Tab RxNorm: 714554 1 Tablet(s) PO BID 01/08/201103/05 Inactive Valium 10 mg Tab RxNorm: 227128 1 Tablet(s) PO QHS 01/05/2011 012 Inactive Diflucan 200 mg Tab RxNorm: 986408 1 Tablet(s) PO QD 01/01/201101/14 Inactive Diflucan 200 mg Tab RxNorm: 709849 1 Tablet(s) PO QD 12/18/201012/31 Inactive Valium 10 mg Tab RxNorm: 496781 1 Tablet(s) PO QHS 12/12/2010 011 Inactive Diflucan 200 mg Tab RxNorm: 025148 1 Tablet(s) PO QD 12/07/201012/18 Inactive Aricept 10 mg Tab RxNorm: 695328 1 Tablet(s) PO QD 11/20/2010 011 Inactive ropinirole 1 mg Tab RxNorm: 439355 1 Tablet(s) PO QHS 11/16/201005/03 Inactive enalapril maleate 5 mg Tab RxNorm: 634217 1 Tablet(s) PO QD 011 05/20/2018 Inactive buspirone 10 mg Tab RxNorm: 424109 1 Tablet(s) PO BID 11/16/201012/02 Inactive Valium 10 mg Tab RxNorm: 366033 1 Tablet(s) PO QHS 11/07/2010 011 Inactive Pyridium 100 mg Tab RxNorm: 3200737 1 Tablet(s) PO TID 11/02/201004/2010 Inactive Macrobid 100 mg Cap RxNorm: 9934382 1 Capsule(s) PO BID 11/02/2010 Inactive buspirone 10 mg Tab RxNorm: 690823 1 Tablet(s) PO QHS 10/18/201005/02 Inactive propranolol 60 mg Tab RxNorm: 573360 1 Tablet(s) PO BID 09/18/2010 Inactive Valium 10 mg Tab RxNorm: 824759 1 Tablet(s) PO QHS 09/05/2010 011 Inactive Aricept 10 mg Tab RxNorm: 020134 1 Tablet(s) PO QD 08/14/2010 011 Inactive Valium 10 mg Tab RxNorm: 815925 1 Tablet(s) PO QHS 06/26/2010 011 Inactive ropinirole 1 mg Tab RxNorm: 958527 1 Tablet(s) PO QHS 06/19/201010/02 Inactive omeprazole 40 mg Cap, delayed release RxNorm: 246349 1 Capsule( s) PO QD 06/07/2010 10/04/2010 Inactive Endocet 10 mg-325 mg Tab RxNorm: 2915199 1 Tablet(s) PO QID as needed for severe pain 06/07/2010 03/07/2011 Inactive Endocet 10 mg-325 mg Tab RxNorm: 1052362 1 Tablet(s) PO QID as needed for severe pain 05/04/2010 06/02/2010 Inactive Valium 10 mg Tab RxNorm: 393030 1 Tablet(s) PO QHS 05/01/2010 011 Inactive propranolol 60 mg Tab RxNorm: 065002 1 Tablet(s) PO BID 04/03/2010 Inactive Valium 10 mg Tab RxNorm: 486846 1 Tablet(s) PO QHS 03/28/2010 011 Inactive omeprazole 40 mg Cap, Delayed Release RxNorm: 684169 1 Capsule( s) PO QD 03/28/2010 06/06/2010 Inactive Endocet 10 mg-325 mg Tab RxNorm: 1665689 1 Tablet(s) PO QID prn ari n 03/27/2010 05/20/2018 Inactive Valium 10 mg Tab RxNorm: 038288 1 Tablet(s) PO QHS 02/20/2010 011 Inactive Diflucan 100 mg Tab RxNorm: 260473 1 Tablet(s) PO BID 01/23/201003/2009 Inactive Diflucan 100 mg Tab RxNorm: 708638 1 Tablet(s) PO BID 01/05/201001/02 Inactive Aricept 10 mg Tab RxNorm: 588326 1 Tablet(s) PO QD 12/01/2009 011 Inactive OxyContin 20 mg 12 hr Tab RxNorm: 6359025 1 Tablet(s) PO BID 200904/05/2010 Inactive oxycodone-acetaminophen 10 mg-325 mg Tab RxNorm: 8062569 1 Table t(s) PO Q4H 11/22/2009 11/26/2009 Inactive Phenergan 25 mg Tab RxNorm: 883764 1 Tablet(s) PO PRN MIGRAINE 11/0303/07/2011 Inactive Demerol 100 mg Tab RxNorm: 515796 1 Tablet(s) PO PRN MIGRAINE 11/2203/07/2011 Inactive Oxycodone-Acetaminophen 10 mg-325 mg Tab RxNorm: 8098442 1 Table t(s) PO Q4H 10/11/2009 10/15/2009 Inactive Percocet 10 mg-325 mg Tab RxNorm: 2521056 1 Tablet(s) PO Q4H 200910/24/2009 Inactive propranolol 60 mg Tab RxNorm: 863202 1 Tablet(s) PO BID 08/29/2009 Inactive Valium 10 mg Tab RxNorm: 447419 1 Tablet(s) PO QHS 08/16/2009 010 Inactive Keflex 500 mg Cap RxNorm: 916681 1 Capsule(s) PO BID 07/25/200907/31 Inactive Hydroxyzine 25 mg Tab RxNorm: 352856 1 Tablet(s) PO TID 07/25/2009 Inactive Prednisone 20 mg Tab RxNorm: 962725 1 Tablet(s) PO BID 07/25/2009 Inactive Demerol 100 mg Tab RxNorm: 219449 1 Tablet(s) PO PRN MIGRAINE 07/25 No Stop Date Active Ropinirole 1 mg Tab RxNorm: 255461 1 Tablet(s) PO HS 07/20/200902/14 Inactive Valium 10 mg Tab RxNorm: 629245 1 Tablet(s) PO QHS 07/18/2009 010 Inactive Endocet 10 mg-325 mg Tab RxNorm: 0690589 1 Tablet(s) PO TID 010 07/07/2009 Inactive Demerol 100 mg Tab RxNorm: 339923 1 Tablet(s) PO PRN MIGRAINE 06/08 No Stop Date Active Ropinirole 1 mg Tab RxNorm: 357430 1 Tablet(s) PO HS 05/16/200907/14 Inactive ipratropium-albuterol 0.5 mg-3 mg(2.5 mg base)/3 mL ne bulization soln RxNorm: 4684851 1 Unit Dose INH Q4H as needed No Start Date Active MagOx 400 mg (241.3 mg magnesium) tablet RxNorm: 613550 1 Table t(s) PO BID No Start Date Active Vitamin B12 1000mcg Tablet RxNorm: 1 Tablet(s) PO QD No Start Date Active Vitamin D3 5,000 unit tablet RxNorm: 171298 1 Tablet(s) PO QD No Star t Date Active Tylenol Arthritis Pain 650 mg tablet,extended release RxNorm : 9387348 1 Tablet(s) PO Q4H No Start Date Active Lotrimin AF 2 % topical powder RxNorm: 087847 1 Application TOP BID No Start Date Active enalapril maleate 5 mg Tab RxNorm: 362731 1 Tablet(s) PO QD No Star t Date 07/20/2012 Inactive Demerol 100 mg Tab RxNorm: 440597 Tablet(s) PO PRN MIGRAINE No Star t Date 06/02/2009 Inactive metformin 500 mg tablet RxNorm: 274677 1 Tablet(s) PO QD No Start D ate 04/05/2013 Inactive Breo Ellipta 100 mcg-25 mcg/dose powder for inhalation RxNor m: 0753923 1 Puff(s) INH BID No Start Date 01/04/2016 Inactive Mag-Oxide 400 mg Tab RxNorm: 446428 1 Tablet(s) PO QD No Start Date 0 07/21/2012 Inactive Cipro 500 mg Tab RxNorm: 642286 1 Tablet(s) PO QD No Start Date 04/05 Inactive Ativan 0.5 mg tablet RxNorm: 347248 1 Tablet(s) PO TID as needed No Start Date 05/06/2019 Inactive melatonin 3 mg tablet RxNorm: 734188 2 Tablet(s) PO QHS No Start Da te 08/19/2018 Inactive buspirone 10 mg Tab RxNorm: 621812 1 Tablet(s) PO QD No Start Date Inactive sucralfate 100 mg/mL Oral Susp RxNorm: 818068 2 Teaspoon(s) PO QID No Start Date 07/21/2012 Inactive hydrocodone 5 mg-acetaminophen 325 mg tablet RxNorm: 983963 1 Tablet(s) PO Q4H as needed No Start Date 08/19/2018 Inactive Amaryl 2 mg tablet RxNorm: 604223 1 Tablet(s) PO BID No Start Date Inactive OxyContin 20 mg 12 hr Tab RxNorm: 2368939 1 Tablet(s) PO BID No Sta rt Date 11/27/2009 Inactive propranolol 40 mg tablet RxNorm: 348633 1 Tablet(s) PO QID No Start Date 01/19/2018 Inactive Trazadone 150 mg Tablet RxNorm: 1-2 Tablet(s) PO QHS prn sleep No Start Date 08/09/2010 Inactive propranolol 60 mg Tab RxNorm: 938332 1/2 Tablet(s) PO BID No Start Date 01/21/2011 Inactive insulin NPH and regular human subcutaneous RxNorm: 6451372 subcu taneous No Start Date 11/20/2018 Inactive Ativan 0.5 mg tablet RxNorm: 748910 1 Tablet(s) PO QID No Start Date 06/18/2016 Inactive Vasotec 5 mg Tab RxNorm: 129414 1 Tablet(s) PO BID No Start Date 06/2011 Inactive Toprol XL 50 mg tablet,extended release RxNorm: 994202 1 Tablet (s) PO BID No Start Date 04/05/2013 Inactive Ativan 0.5 mg tablet RxNorm: 553587 1 Tablet(s) PO TID No Start Date 05/25/2016 Inactive Klor-Con M20 20 mEq Tab RxNorm: 2226119 1 Tablet(s) PO QD No Start Date 03/19/2011 Inactive sumatriptan 100 mg tablet RxNorm: 052089 1 Tablet(s) PO at headache onset--repeat in 2hrs if remains No Start Date 07/21/2012 Inactive propranolol 60 mg Tab RxNorm: 591295 1 Tablet(s) PO BID No Start Da te 08/28/2009 Inactive Cholestyramine Light 4 gram Oral Powder RxNorm: 1627858 1 Unit Dose PO QD in water No Start Date 07/21/2012 Inactive nystatin 100,000 unit/g Topical Powder RxNorm: 197419 Applicati on TOP BID No Start Date 07/21/2012 Inactive vitamin N11-ughci acid sublingual RxNorm: sublingual No Start Date 07/05/2013 Inactive cyclobenzaprine 5 mg tablet RxNorm: 435773 1/2-1 Tablet (s) PO TID as needed for muscle spasm No Start Date 07/18/2017 Inactive tramadol 50 mg tablet RxNorm: 145731 2 Tablet(s) PO TID as need ed for pain No Start Date 09/01/2014 Inactive aspirin 81 mg Tab RxNorm: 712717 1 Tablet(s) PO QOD No Start Date 04/2013 Inactive Vitamin B12 1000mcg Tablet RxNorm: 1 Tablet(s) PO QD No Start Date 07/18/2017 Inactive cholestyramine (with sugar) 4 gram oral powder RxNorm: 03215 3 1 Unit(s) PO QD as needed No Start Date 05/20/2018 Inactive ProAir HFA 90 mcg/Actuation Aerosol Inhaler RxNorm: 159375 2 Puff(s) INH Q4H prn shortness of breath No Start Date 07/21/2012 Inactive pravastatin 10 mg Tab RxNorm: 579300 1 Tablet(s) PO QD No Start Date 07/21/2012 Inactive gabapentin 800 mg Tab RxNorm: 243530 1 Tablet(s) PO BID No Start Da te 06/03/2011 Inactive Endocet 10 mg-325 mg Tab RxNorm: 8535405 1 Tablet(s) PO TID No Star t Date 06/02/2009 Inactive Naproxen 500 mg Tab RxNorm: 624753 1 Tablet(s) PO BID No Start Date 0 04/05/2010 Inactive Valium 10 mg Tab RxNorm: 767801 1 Tablet(s) PO BID No Start Date 07/04 Inactive enalapril maleate 5 mg Tab RxNorm: 591161 1 Tablet(s) PO QD No Star t Date 11/15/2010 Inactive doxepin 10 mg capsule RxNorm: 9010169 2 Capsule(s) PO QHS No Start Date 09/17/2018 Inactive MS Contin 15 mg Tab RxNorm: 189249 1 Tablet(s) PO BID No Start Date 0 09/18/2010 Inactive buspirone 5 mg tablet RxNorm: 828567 1 Tablet(s) PO TID No Start Da te 12/01/2013 Inactive [place] 3 Fish Oil Cap RxNorm: 1 Capsule(s) PO QD No Start Date 07/03 Inactive enalapril maleate 5 mg Tab RxNorm: 893121 1/2 Tablet(s) PO QD No St art Date 03/07/2011 Inactive Lyrica 75 mg capsule RxNorm: 363819 1 Capsule(s) PO QHS No Start Da te 02/08/2014 Inactive Lopressor 100 mg tablet RxNorm: 888465 1 Tablet(s) PO BID No Start Date 06/08/2018 Inactive Lantus Solostar U-100 Insulin 100 unit/mL (3 mL) subcu taneous pen RxNorm: 441044 45 Unit(s) SQ QAM No Start Date 05/20/2018 Inactive aspirin 81 mg tablet RxNorm: 204341 1 Tablet(s) PO QD No Start Date 0 09/14/2015 Inactive diltiazem CD 240 mg capsule,extended release 24 hr RxNorm: 8 98857 1 Capsule(s) PO QD No Start Date 05/25/2019 Inactive insulin NPH isophane U-100 human subcutaneous RxNorm: 851665 beckwith bcutaneous No Start Date 04/20/2019 Inactive sumatriptan 100 mg tablet RxNorm: 362988 1 Tablet(s) PO at headache onset. May repeat 1 in two hours if headache remains. Max of 2 per 24 hours No Start Date 04/01/2018 Inactive gabapentin 300 mg capsule RxNorm: 025046 1 Capsule(s) PO QHS No Sta rt Date 02/04/2018 Inactive Topamax 25 mg Tab RxNorm: 798027 Oral No Start Date 03/07/2011 In active Senokot-S 8.6 mg-50 mg Tab RxNorm: 4919441 1 Tablet(s) PO QD No Sta rt Date 03/07/2011 Inactive metformin ER 500 mg 24 hr tablet,extended release RxNorm: 18 68796 1 Tablet(s) PO QD No Start Date 05/20/2018 Inactive Symbicort 80 mcg-4.5 mcg/actuation HFA Aerosol Inhaler RxNor m: 4354687 2 Puff(s) INH BID No Start Date 04/05/2013 Inactive metoprolol tartrate 25 mg tablet RxNorm: 295062 1 Tablet(s) PO BID No Start Date 05/20/2019 Inactive propranolol 60 mg Tab RxNorm: 527153 1/2 Tablet(s) PO BID No Start Date 07/21/2012 Inactive metformin ER 500 mg 24 hr tablet,extended release RxNorm: 18 90224 2 Tablet(s) PO QD No Start Date 12/16/2017 Inactive Insulin Syringe 1 mL 29 gauge x 1/2" RxNorm: 2 s yringes daily with insulin Dx: E11.65 No Start Date 10/07/2018 Inactive Amitriptyline 75 mg Tab RxNorm: 996026 1 Tablet(s) PO QHS No Start Date 10/23/2009 Inactive donepezil 10 mg Tab RxNorm: 654188 1 Tablet(s) PO QD No Start Date Inactive Lantus Solostar U-100 Insulin 100 unit/mL (3 mL) subcu taneous pen RxNorm: 214342 36 Unit(s) SQ QAM No Start Date 12/24/2017 Inactive Miacalcin 200 unit/Actuation Nasal [place] Aerosol RxNorm: 261 204 1 [place] NASAL QD Alternate nostrils each day No Start Date 04/05/2010 Inactive Amitriptyline 150 mg Tab RxNorm: 263736 1 Tablet(s) PO QHS No Start Date 01/04/2010 Inactive Bystolic 5 mg tablet RxNorm: 917900 1 Tablet(s) PO QD No Start Date 0 08/13/2012 Inactive Aricept 10 mg Tab RxNorm: 810993 1 Tablet(s) PO QD No Start Date 11/03 Inactive Lantus Solostar U-100 Insulin 100 unit/mL (3 mL) subcu taneous pen RxNorm: 043173 50 Unit(s) SQ QAM No Start Date 08/27/2018 Inactive albuterol sulfate 2.5 mg/3 mL (0.083 %) Neb Solution RxNorm: 304310 1 Unit Dose INH QID as needed No Start Date 08/23/2015 Inactive Symbicort 160 mcg-4.5 mcg/actuation HFA Aerosol Inhaler RxNo rm: 8936718 2 Puff(s) INH BID No Start Date 12/03/2011 Inactive Savella 50 mg Tab RxNorm: 533155 1 Tablet(s) PO BID No Start Date 04/2010 Inactive amitriptyline 100 mg Tab RxNorm: 251794 1 1/2 Tablet(s) PO QHS No S tart Date 06/19/2011 Inactive nystatin 100,000 unit/g Topical Cream RxNorm: 196900 Ap plication TOP BID to rash for 2-4 weeks No Start Date 01/14/2011 Inactive Trelegy Ellipta 100 mcg-62.5 mcg-25 mcg powder for inhalatio n RxNorm: 6291939 1 Puff(s) INH QD No Start Date 12/16/2017 Inactive Lyrica 150 mg capsule RxNorm: 854103 1 Capsule(s) PO QHS No Start D ate 12/04/2015 Inactive sennosides 8.6 mg tablet RxNorm: 796366 1 Tablet(s) PO BID No Start Date 09/07/2018 Inactive metformin ER 500 mg tablet,extended release 24 hr RxNorm: 86 0975 1 Tablet(s) PO QD No Start Date 10/22/2017 Inactive Fish Oil 1,000 mg Cap RxNorm: 1 Capsule(s) PO QD No Start Date 06/2011 Inactive Zyrtec 10 mg Tab RxNorm: 6427144 1 Tablet(s) PO QD No Start Date 07/03 Inactive albuterol sulfate HFA 90 mcg/actuation aerosol inhaler RxNor m: 5108130 2 Puff(s) INH Q4H as needed for cough No Start Date 09/30/2013 Inactive trazodone 150 mg tablet RxNorm: 084492 1 Tablet(s) PO QHS No Start Date 07/21/2012 Inactive Spiriva with HandiHaler 18 mcg & inhalation capsules RxNorm: 884321 1 Capsule(s) INH QD No Start Date 04/05/2013 Inactive Coreg 3.125 mg Tab RxNorm: 560229 1 Tablet(s) PO BID No Start Date Inactive Phenergan 25 mg Tab RxNorm: 641570 Tablet(s) PO PRN MIGRAINE No Sta rt Date 11/21/2009 Inactive Vitamin D 50,000 unit Cap RxNorm: 7153589 1 Capsule(s) PO QW No Sta rt Date 03/07/2011 Inactive Januvia 100 mg tablet RxNorm: 884599 1 Tablet(s) PO QD No Start Date 10/25/2015 Inactive Eliquis 5 mg tablet RxNorm: 5936139 1 Tablet(s) PO BID No Start Date 08/19/2018 Inactive Advair Diskus 500 mcg-50 mcg/Dose for Inhalation RxNorm: 758227 1 INH BID No Start Date 07/21/2012 Inactive Vitamin D3 5,000 unit tablet RxNorm: 097130 1 Tablet(s) PO QD No St art Date 07/18/2017 Inactive Amaryl 2 mg tablet RxNorm: 614293 1 Tablet(s) PO QD No Start Date 06/2015 Inactive Actos 30 mg tablet RxNorm: 746268 1 Tablet(s) PO QD No Start Date Inactive promethazine 25 mg tablet RxNorm: 739817 1 Tablet(s) PO Q4H prn N/V No Start Date 07/21/2012 Inactive ProAir HFA 90 mcg/actuation Aerosol Inhaler RxNorm: 171497 2 Puff(s) INH Q4H prn dyspnea No Start Date 07/21/2012 Inactive Dexilant 60 mg Capsule RxNorm: 749899 1 Capsule(s) PO QD No Start D ate 01/27/2012 Inactive Lantus Solostar U-100 Insulin 100 unit/mL (3 mL) subcu taneous pen RxNorm: 956392 38 Unit(s) SQ QAM No Start Date 05/20/2018 Inactive Valium 10 mg Tab RxNorm: 458952 1 Tablet(s) PO QHS AND PRN No Start Date 10/24/2009 Inactive ZOFRAN ODT 8 mg disintegrating tablet RxNorm: 283215 1 Tablet(s ) PO Q6H No Start [...] Date S ervice Location MICROALBUMIN URINE RANDOM 94559 MICRL MG/L 14.9 MG/L Unknown MICROALBUMIN URINE RANDOM 86687 XM.ALB/CRE 6.1 MG/GCR Unknown MICROALBUMIN URINE RANDOM 20154 CREAT MG/D 243 MG/DL Unknown MICROALBUMIN URINE RANDOM 26733 CRE/100 2.43 G/L 03/05 Unknown PROTEIN/CREAT URINE WITH RATIO 81853|53419 PROT R U 14 MG/D L 04/01/2014 Unknown PROTEIN/CREAT URINE WITH RATIO 84205|00731 CREAT R U 254 MG/ DL 04/01/2014 Unknown PROTEIN/CREAT URINE WITH RATIO 46553|64375 XRATIO P/C 55 MG/ G 04/01/2014 Unknown URINALYSIS 45019 PROTEIN UR NEG 04/28/2010 Unknown URINALYSIS 23029 HEMGLBN UR NEG 04/28/2010 Unknown URINALYSIS 43858 GLUCOSE UR NEG 04/28/2010 Unknown URINALYSIS 06274 KETONES UR NEG 04/28/2010 Unknown URINALYSIS 92735 PH U 5.5 04/28/2010 Unknown URINALYSIS 85160 SP GR U 1.025 04/28/2010 Unknown URINALYSIS 76176 BILRUBN UR NEG 04/28/2010 Unknown URINALYSIS 02954 LEUKO UR 2+ 04/28/2010 Unknown URINALYSIS 37193 NITRITE UR NEG 04/28/2010 Unknown MICR CUL? [id number] WBC/HPF 6-10 04/28/2010 Unknown MICR CUL? [id number] RBC/HPF 0-5 04/28/2010 Unknown MICR CUL? [id number] HYAL CAST 16-25 04/28/2010 Unknown MICR CUL? [id number] SP TO YOLIE? NO 04/28/2010 Unknown MICR CUL? [id number] APPEAR UR NORMAL 04/28/2010 Unknown MICR CUL? [id number] SQ EPI/LPF FEW 04/28/2010 Unknown Procedures Procedure Codes Date URINALYSIS NONAUTO W/O SCOPE CPT-4: 66163 04/16/2019 URINE CULTURE/ COLONY COUNT CPT-4: 46642 04/16/2019 CEFTRIAXONE SODIUM INJECTION CPT-4: J0696 04/16/2019 THER/PROPH/DIAG INJ SC/IM CPT-4: 89079 04/16/2019 DRAIN/INJECT JOINT/BURSA CPT-4: 27523 01/22/2019 TRIAMCINOLONE ACET INJ NOS CPT-4: J3301 01/22/2019 DEXAMETHASONE SODIUM PHOS CPT-4: J1100 01/22/2019 URINE CULTURE/ COLONY COUNT CPT-4: 69655 01/07/2019 URINALYSIS NONAUTO W/O SCOPE CPT-4: 52504 01/07/2019 CEFTRIAXONE SODIUM INJECTION CPT-4: J0696 01/07/2019 THER/PROPH/DIAG INJ SC/IM CPT-4: 67725 01/07/2019 FLU VACC PRSV FREE INC ANTIG 65 AND OLDER CPT-4: 66862 12/24/2018 FLU VACC PRSV FREE INC ANTIG 65 AND OLDER CPT-4: 78694 12/24/2018 ADMIN INFLUENZA VIRUS VAC CPT-4: G0008 12/24/2018 THER/PROPH/DIAG INJ SC/IM CPT-4: 04266 11/04/2018 KETOROLAC TROMETHAMINE INJ CPT-4: J1885 11/04/2018 PROMETHAZINE HCL INJECTION CPT-4: J2550 11/04/2018 PPPS, subseq visit CPT-4: G0439 09/18/2018 THER/PROPH/DIAG INJ SC/IM CPT-4: 06695 04/01/2018 KETOROLAC TROMETHAMINE INJ CPT-4: J1885 04/01/2018 PROMETHAZINE HCL INJECTION CPT-4: J2550 04/01/2018 URINE CULTURE/ COLONY COUNT CPT-4: 35552 03/17/2018 URINALYSIS NONAUTO W/O SCOPE CPT-4: 50438 03/17/2018 FLU VACC PRSV FREE INC ANTIG 65 AND OLDER CPT-4: 45299 12/17/2017 PNEUMOCOCCAL VACC 23 RANDALL IM CPT-4: 96710 12/17/2017 ADMIN INFLUENZA VIRUS VAC CPT-4: G0008 12/17/2017 ADMIN PNEUMOCOCCAL VACCINE CPT-4: G0009 12/17/2017 PPPS, subseq visit CPT-4: G0439 09/17/2017 THER/PROPH/DIAG INJ SC/IM CPT-4: 79911 08/26/2017 KETOROLAC TROMETHAMINE INJ CPT-4: J1885 08/26/2017 PROMETHAZINE HCL INJECTION CPT-4: J2550 08/26/2017 URINALYSIS NONAUTO W/O SCOPE CPT-4: 91886 07/19/2017 URINE CULTURE/ COLONY COUNT CPT-4: 67458 07/19/2017 CEFTRIAXONE SODIUM INJECTION CPT-4: J0696 07/19/2017 THER/PROPH/DIAG INJ SC/IM CPT-4: 62712 07/19/2017 THER/PROPH/DIAG INJ SC/IM CPT-4: 45776 07/19/2017 TRIAMCINOLONE ACET INJ NOS CPT-4: J3301 07/19/2017 PRESCRIP TRANSMIT VIA ERX SY CPT-4: G8553 05/07/2017 PRESCRIP TRANSMIT VIA ERX SY CPT-4: G8553 02/22/2017 PRESCRIP TRANSMIT VIA ERX SY CPT-4: G8553 01/23/2017 FLU VACC PRSV FREE INC ANTIG 65 AND OLDER CPT-4: 13411 12/20/2016 PNEUMOCOCCAL VACC 13 RANDALL IM CPT-4: 40475 12/20/2016 ADMIN INFLUENZA VIRUS VAC CPT-4: G0008 12/20/2016 ADMIN PNEUMOCOCCAL VACCINE CPT-4: G0009 12/20/2016 URINALYSIS NONAUTO W/O SCOPE CPT-4: 09494 10/08/2016 URINE CULTURE/ COLONY COUNT CPT-4: 63435 10/08/2016 PRESCRIP TRANSMIT VIA ERX SY CPT-4: G8553 10/08/2016 PRESCRIP TRANSMIT VIA ERX SY CPT-4: G8553 09/19/2016 PRESCRIP TRANSMIT VIA ERX SY CPT-4: G8553 08/20/2016 PRESCRIP TRANSMIT VIA ERX SY CPT-4: G8553 02/29/2016 KETOROLAC TROMETHAMINE INJ CPT-4: J1885 02/02/2016 THER/PROPH/DIAG INJ SC/IM CPT-4: 54378 02/02/2016 PROMETHAZINE HCL INJECTION CPT-4: J2550 02/02/2016 PRESCRIP TRANSMIT VIA ERX SY CPT-4: G8553 02/02/2016 FLU VACC PRSV FREE INC ANTIG 65 AND OLDER CPT-4: 84602 01/05/2016 PPPS, subseq visit CPT-4: G0439 01/05/2016 ADMIN INFLUENZA VIRUS VAC CPT-4: G0008 01/05/2016 URINE CULTURE/ COLONY COUNT CPT-4: 75443 12/05/2015 URINALYSIS NONAUTO W/O SCOPE CPT-4: 94362 12/05/2015 PRESCRIP TRANSMIT VIA ERX SY CPT-4: G8553 12/05/2015 PRESCRIP TRANSMIT VIA ERX SY CPT-4: G8553 10/26/2015 URINALYSIS NONAUTO W/O SCOPE CPT-4: 63310 10/05/2015 URINE CULTURE/ COLONY COUNT CPT-4: 10910 10/05/2015 PRESCRIP TRANSMIT VIA ERX SY CPT-4: G8553 10/05/2015 SERVICE REQUIRED FOR PMD CPT-4: G0372 09/15/2015 PRESCRIP TRANSMIT VIA ERX SY CPT-4: G8553 09/15/2015 SPECIAL REPORTS OR FORMS CPT-4: 86359 08/25/2015 PRESCRIP TRANSMIT VIA ERX SY CPT-4: G8553 07/05/2015 URINALYSIS NONAUTO W/O SCOPE CPT-4: 25069 03/30/2015 ASSAY, GLUCOSE, BLOOD QUANT CPT-4: 98522 03/30/2015 URINE CULTURE/ COLONY COUNT CPT-4: 06488 03/30/2015 PRESCRIP TRANSMIT VIA ERX SY CPT-4: G8553 03/30/2015 PRESCRIP TRANSMIT VIA ERX SY CPT-4: G8553 02/03/2015 FLU VACC PRSV FREE INC ANTIG 65 AND OLDER CPT-4: 61442 12/29/2014 ADMIN INFLUENZA VIRUS VAC CPT-4: G0008 12/29/2014 PRESCRIP TRANSMIT VIA ERX SY CPT-4: G8553 12/29/2014 PRESCRIP TRANSMIT VIA ERX SY CPT-4: G8553 09/02/2014 PROTEIN/CREAT URINE WITH RATIO CPT-4: 14815|17706 5 MICROALBUMIN QUANTITATIVE CPT-4: 61314 04/01/2014 PRESCRIP TRANSMIT VIA ERX SY CPT-4: G8553 03/16/2014 PRESCRIP TRANSMIT VIA ERX SY CPT-4: G8553 03/09/2014 THER/PROPH/DIAG INJ SC/IM CPT-4: 99518 03/01/2014 TRIAMCINOLONE ACET INJ NOS CPT-4: J3301 03/01/2014 PRESCRIP TRANSMIT VIA ERX SY CPT-4: G8553 02/09/2014 URINE CULTURE/ COLONY COUNT CPT-4: 85393 10/30/2013 URINALYSIS NONAUTO W/O SCOPE CPT-4: 80671 10/21/2013 URINE CULTURE/ COLONY COUNT CPT-4: 64413 10/21/2013 DESTRUCT PREMALG LESION (Cryosurgery) CPT-4: 13072 PRESCRIP TRANSMIT VIA ERX SY CPT-4: G8553 10/05/2013 URINALYSIS NONAUTO W/O SCOPE CPT-4: 94411 08/04/2013 URINE CULTURE/ COLONY COUNT CPT-4: 18363 08/04/2013 PRESCRIP TRANSMIT VIA ERX SY CPT-4: G8553 08/04/2013 THER/PROPH/DIAG INJ SC/IM CPT-4: 65960 07/13/2013 TRIAMCINOLONE ACET INJ NOS CPT-4: J3301 07/13/2013 PRESCRIP TRANSMIT VIA ERX SY CPT-4: G8553 05/27/2013 URINALYSIS NONAUTO W/O SCOPE CPT-4: 63445 05/25/2013 URINE CULTURE/ COLONY COUNT CPT-4: 42189 05/25/2013 THER/PROPH/DIAG INJ SC/IM CPT-4: 32112 05/04/2013 VITAMIN B12 INJECTION CPT-4: J3420 05/04/2013 THER/PROPH/DIAG INJ SC/IM CPT-4: 66551 04/17/2013 VITAMIN B12 INJECTION CPT-4: J3420 04/17/2013 THER/PROPH/DIAG INJ SC/IM CPT-4: 72639 04/17/2013 METHYLPREDNISOLONE 40 MG INJ CPT-4: J1030 04/17/2013 TRIAMCINOLONE ACET INJ NOS CPT-4: J3301 04/17/2013 URINALYSIS NONAUTO W/O SCOPE CPT-4: 65193 04/06/2013 URINE CULTURE/ COLONY COUNT CPT-4: 30121 04/06/2013 PRESCRIP TRANSMIT VIA ERX SY CPT-4: G8553 04/06/2013 KETOROLAC TROMETHAMINE INJ CPT-4: J1885 06/25/2012 PROMETHAZINE HCL INJECTION CPT-4: J2550 06/25/2012 THER/PROPH/DIAG INJ SC/IM CPT-4: 38389 06/25/2012 THER/PROPH/DIAG INJ SC/IM CPT-4: 21742 06/24/2012 METHYLPREDNISOLONE 40 MG INJ CPT-4: J1030 06/24/2012 TRIAMCINOLONE ACET INJ NOS CPT-4: J3301 06/24/2012 URINE CULTURE/ COLONY COUNT CPT-4: 08600 06/24/2012 THER/PROPH/DIAG INJ SC/IM CPT-4: 61511 05/20/2012 KETOROLAC TROMETHAMINE INJ CPT-4: J1885 05/20/2012 THER/PROPH/DIAG INJ SC/IM CPT-4: 55240 05/20/2012 PROMETHAZINE HCL INJECTION CPT-4: J2550 05/20/2012 DRAIN/INJECT JOINT/BURSA CPT-4: 94618 02/13/2012 METHYLPREDNISOLONE 40 MG INJ CPT-4: J1030 02/13/2012 TRIAMCINOLONE ACET INJ NOS CPT-4: J3301 02/13/2012 THER/PROPH/DIAG INJ SC/IM CPT-4: 36580 11/14/2011 METHYLPREDNISOLONE 40 MG INJ CPT-4: J1030 11/14/2011 TRIAMCINOLONE ACET INJ NOS CPT-4: J3301 11/14/2011 THER/PROPH/DIAG INJ SC/IM CPT-4: 96210 09/12/2011 KETOROLAC TROMETHAMINE INJ CPT-4: J1885 09/12/2011 THER/PROPH/DIAG INJ SC/IM CPT-4: 25021 08/09/2011 METHYLPREDNISOLONE 40 MG INJ CPT-4: J1030 08/09/2011 TRIAMCINOLONE ACET INJ NOS CPT-4: J3301 08/09/2011 URINE CULTURE/ COLONY COUNT CPT-4: 16071 07/03/2011 URINE CULTURE/ COLONY COUNT CPT-4: 33484 06/04/2011 THER/PROPH/DIAG INJ SC/IM CPT-4: 46703 05/03/2011 METHYLPREDNISOLONE 40 MG INJ CPT-4: J1030 05/03/2011 TRIAMCINOLONE ACET INJ NOS CPT-4: J3301 05/03/2011 URINALYSIS NONAUTO W/O SCOPE CPT-4: 31434 01/24/2011 URINE CULTURE/ COLONY COUNT CPT-4: 20385 01/24/2011 FLUZONE, 5ML (Medicare) CPT-4: Q2038 01/02/2011 ADMIN INFLUENZA VIRUS VAC CPT-4: G0008 01/02/2011 ASSAY, GLUCOSE, BLOOD QUANT CPT-4: 66512 12/07/2010 URINE CULTURE/ COLONY COUNT CPT-4: 89887 11/02/2010 THER/PROPH/DIAG INJ SC/IM CPT-4: 69808 10/18/2010 METHYLPREDNISOLONE 40 MG INJ CPT-4: J1030 10/18/2010 TRIAMCINOLONE ACET INJ NOS CPT-4: J3301 10/18/2010 TRIAMCINOLONE ACET INJ NOS CPT-4: J3301 05/11/2010 METHYLPREDNISOLONE 40 MG INJ CPT-4: J1030 05/11/2010 THER/PROPH/DIAG INJ SC/IM CPT-4: 11920 05/11/2010 TRIAMCINOLONE ACET INJ NOS CPT-4: J3301 02/09/2010 METHYLPREDNISOLONE 40 MG INJ CPT-4: J1030 02/09/2010 THER/PROPH/DIAG INJ SC/IM CPT-4: 00454 02/09/2010 SERVICE REQUIRED FOR PMD CPT-4: G0372 02/09/2010 FLU VACCINE 3 YRS & > IM UP 64 CPT-4: 85445 0 PNEUMOCOCCAL VACC 23 RANDALL IM CPT-4: 11766 12/07/2009 ADMIN INFLUENZA VIRUS VAC CPT-4: G0008 12/07/2009 ADMIN PNEUMOCOCCAL VACCINE CPT-4: G0009 12/07/2009 TRIAMCINOLONE ACET INJ NOS CPT-4: J3301 05/26/2009 THER/PROPH/DIAG INJ SC/IM CPT-4: 41589 05/26/2009 METHYLPREDNISOLONE 80 MG INJ CPT-4: J1040 [...] 1: 114/72 Code: 8480-6 BMI: 37.8 Code: 74245-5 Heart Rate 1: 72 bpm Height: 5'3" [...] 1: 106/68 Code: 8480-6 BMI: 35.7 Code: 93095-2 Heart Rate 1: 72 bpm Height: 5'4" Respiratory Rate: 20 bpm SpO2: 98% Tempera ture: 36.7 (C) / 98.0 (F) Weight: 208 lbs 04/16/2018 Blood Pressure 1: 132/82 Code: 8480-6 BMI: 37.9 Code: 37463-7 Heart Rate 1: 72 bpm Height: 5'4" Respiratory Rate: 20 bpm SpO2: 96% Tempera ture: 37.1 (C) / 98.8 (F) Weight: 221 lbs 04/01/2018 Blood Pressure 1: 150/90 Code: 8480-6 Heart Rate 1: 72 bpm Respiratory Rate: 22 bpm SpO2: 95% Temperature: 36.4 (C) / 97.6 (F) We ight: 216 lbs 03/06/2018 Blood Pressure 1: 126/78 Code: 8480-6 BMI: 37.4 Code: 39679-5 Heart Rate 1: 68 bpm Height: 5'4" [...] ight: 222 lbs 12/25/2017 BMI: 37.8 Code: 99332-0 Heart Rate 1: 76 bpm Height: 5 '4" Respiratory Rate: 20 bpm SpO2: 96% Temperature: 37.3 (C) / 99.2 (F) Weight: 220 lbs 12/17/2017 Blood Pressure 1: 132/78 Code: 8480-6 BMI: 37.2 Code: 15465-7 Heart Rate 1: 88 bpm Height: 5'4" Respiratory Rate: 20 bpm SpO2: 96% Tempera ture: 37.3 (C) / 99.2 (F) Weight: 217 lbs 10/30/2017 Blood Pressure 1: 114/68 Code: 8480-6 BMI: 36.4 Code: 81868-7 Heart Rate 1: 72 bpm Height: 5'4" Respiratory Rate: 22 bpm SpO2: 96% Tempera ture: 36.8 (C) / 98.2 (F) Weight: 212 lbs 10/23/2017 Blood Pressure 1: 124/78 Code: 8480-6 Heart Rate 1: 72 bpm Respiratory Rate: 24 bpm SpO2: 94% Temperature: 36.6 (C) / 97.9 (F) We ight: 212 lbs 09/17/2017 Blood Pressure 1: 128/82 Code: 8480-6 BMI: 37.4 Code: 17743-9 Heart Rate 1: 72 bpm Height: 5'4" Respiratory Rate: 20 bpm SpO2: 96% Tempera ture: 37.0 (C) / 98.6 (F) Weight: 218 lbs 07/19/2017 Blood Pressure 1: 136/84 Code: 8480-6 BMI: 36.6 Code: 17842-5 Heart Rate 1: 88 bpm Height: 5'4" Respiratory Rate: 20 bpm SpO2: 97% Tempera ture: 36.7 (C) / 98.0 (F) Weight: 213 lbs 05/29/2017 Blood Pressure 1: 136/82 Code: 8480-6 BMI: 36.7 Code: 63282-1 Heart Rate 1: 72 bpm Height: 5'4" Respiratory Rate: 20 bpm SpO2: 97% Tempera ture: 36.9 (C) / 98.4 (F) Weight: 214 lbs 05/07/2017 Blood Pressure 1: 122/80 Code: 8480-6 BMI: 37.1 Code: 14794-9 Heart Rate 1: 80 bpm Height: 5'4" Respiratory Rate: 24 bpm SpO2: 96% Tempera ture: 36.1 (C) / 97.0 (F) Weight: 216 lbs 03/18/2017 BMI: 36.7 Code: 99838-8 Heart Rate 1: 80 bpm Height: 5 '4" Respiratory Rate: 22 bpm SpO2: 95% Temperature: 36.9 (C) / 98.4 (F) Weight: 214 lbs 02/27/2017 Blood Pressure 1: 146/94 Code: 8480-6 BMI: 36.6 Code: 17627-1 Heart Rate 1: 76 bpm Height: 5'4" Respiratory Rate: 22 bpm SpO2: 97% Tempera ture: 36.6 (C) / 97.9 (F) Weight: 213 lbs 02/22/2017 Blood Pressure 1: 126/90 Code: 8480-6 BMI: 36.4 Code: 30939-0 Heart Rate 1: 84 bpm Height: 5'4" Respiratory Rate: 22 bpm SpO2: 95% Tempera ture: 36.9 (C) / 98.4 (F) Weight: 212 lbs 01/23/2017 Blood Pressure 1: 146/82 Code: 8480-6 BMI: 37.6 Code: 58654-8 Heart Rate 1: 96 bpm Height: 5'4" Respiratory Rate: 20 bpm SpO2: 96% Tempera ture: 36.9 (C) / 98.4 (F) Weight: 219 lbs 12/20/2016 Blood Pressure 1: 126/70 Code: 8480-6 BMI: 37.2 Code: 66146-4 Heart Rate 1: 76 bpm Height: 5'4" Respiratory Rate: 22 bpm SpO2: 95% Tempera ture: 36.6 (C) / 97.8 (F) Weight: 217 lbs 10/08/2016 Blood Pressure 1: 128/82 Code: 8480-6 BMI: 36.9 Code: 34547-5 Heart Rate 1: 76 bpm Height: 5'4" Respiratory Rate: 20 bpm SpO2: 95% Tempera ture: 37.0 (C) / 98.6 (F) Weight: 215 lbs 09/19/2016 Blood Pressure 1: 144/78 Code: 8480-6 BMI: 37.8 Code: 11470-7 Heart Rate 1: 76 bpm Height: 5'4" Respiratory Rate: 22 bpm SpO2: 95% Tempera ture: 37.0 (C) / 98.6 (F) Weight: 220 lbs 08/20/2016 Blood Pressure 1: 140/86 Code: 8480-6 BMI: 37.4 Code: 28941-1 Heart Rate 1: 80 bpm Height: 5'4" Respiratory Rate: 20 bpm SpO2: 95% Tempera ture: 36.9 (C) / 98.4 (F) Weight: 218 lbs 06/19/2016 Blood Pressure 1: 124/78 Code: 8480-6 BMI: 37.8 Code: 13603-6 Heart Rate 1: 74 bpm Height: 5'4" Respiratory Rate: 24 bpm SpO2: 96% Tempera ture: 36.9 (C) / 98.4 (F) Weight: 220 lbs 06/04/2016 Blood Pressure 1: 12478 Code: 8480-6 BMI: 38.8 Code: 04130-0 Heart Rate 1: 72 bpm Height: 5'4" Respiratory Rate: 24 bpm SpO2: 95% Tempera ture: 36.8 (C) / 98.2 (F) Weight: 226 lbs 05/02/2016 Blood Pressure 1: 136/90 Code: 8480-6 BMI: 37.6 Code: 13211-3 Heart Rate 1: 72 bpm Height: 5'4" Respiratory Rate: 24 bpm SpO2: 96% Tempera ture: 36.9 (C) / 98.4 (F) Weight: 219 lbs 04/03/2016 Blood Pressure 1: 12678 Code: 8480-6 BMI: 38.1 Code: 82297-1 Heart Rate 1: 72 bpm Height: 5'4" Respiratory Rate: 22 bpm SpO2: 94% Tempera ture: 36.9 (C) / 98.4 (F) Weight: 222 lbs 02/29/2016 Blood Pressure 1: 132/78 Code: 8480-6 Heart Rate 1: 78 bpm Height: Respiratory Rate: 24 bpm SpO2: 95% Temperature: 36.4 (C) / 97.6 (F) We ight: 02/02/2016 Blood Pressure 1: 12478 Code: 8480-6 BMI: 37.6 Code: 14585-7 Heart Rate 1: 76 bpm Height: 5'4" Respiratory Rate: 20 bpm SpO2: 95% Tempera ture: 36.8 (C) / 98.2 (F) Weight: 219 lbs 01/05/2016 Blood Pressure 1: 126/70 Code: 8480-6 BMI: 37.1 Code: 66750-1 Heart Rate 1: 76 bpm Height: 5'4" Respiratory Rate: 20 bpm Temperature: 36 .6 (C) / 97.8 (F) Weight: 216 lbs 12/05/2015 Blood Pressure 1: 126/72 Code: 8480-6 BMI: 36.9 Code: 28454-6 Heart Rate 1: 92 bpm Height: 5'4" Respiratory Rate: 20 bpm Temperature: 36 .7 (C) / 98.1 (F) Weight: 215 lbs 10/26/2015 Blood Pressure 1: 142/80 Code: 8480-6 BMI: 36.4 Code: 03900-6 Heart Rate 1: 82 bpm Height: 5'4" Respiratory Rate: 24 bpm SpO2: 92% Tempera ture: 35.9 (C) / 96.7 (F) Weight: 212 lbs 10/05/2015 Blood Pressure 1: 136/82 Code: 8480-6 Heart Rate 1: 80 bpm Respiratory Rate: 18 bpm SpO2: 98% Temperature: 35.7 (C) / 96.3 (F) We ight: 214 lbs 09/15/2015 Blood Pressure 1: 116/80 Code: 8480-6 BMI: 34.6 Code: 96664-6 Heart Rate 1: 76 bpm Height: 5'6" Respiratory Rate: 20 bpm Temperature: 36 .6 (C) / 97.9 (F) Weight: 211 lbs 08/24/2015 Blood Pressure 1: 124/80 Code: 8480-6 BMI: 34.1 Code: 87321-2 Heart Rate 1: 68 bpm Height: 5'6" Respiratory Rate: 20 bpm Temperature: 36 .8 (C) / 98.3 (F) Weight: 208 lbs 07/05/2015 Blood Pressure 1: 114/78 Code: 8480-6 BMI: 33.9 Code: 10593-2 Heart Rate 1: 80 bpm Height: 5'6" Respiratory Rate: 20 bpm Temperature: 36 .6 (C) / 97.9 (F) Weight: 207 lbs 06/06/2015 Blood Pressure 1: 122/78 Code: 8480-6 BMI: 34.1 Code: 48013-0 Heart Rate 1: 76 bpm Height: 5'6" Respiratory Rate: 24 bpm SpO2: 96% Tempera ture: 36.4 (C) / 97.6 (F) Weight: 208 lbs 05/23/2015 Blood Pressure 1: 124/78 Code: 8480-6 Heart Rate 1: 76 bpm Respiratory Rate: 24 bpm SpO2: 93% Temperature: 36.8 (C) / 98.2 (F) We ight: 212 lbs 05/05/2015 Blood Pressure 1: 136/80 Code: 8480-6 BMI: 35.4 Code: 71624-2 Heart Rate 1: 76 bpm Height: 5'6" Respiratory Rate: 28 bpm Temperature: 37 .0 (C) / 98.6 (F) Weight: 216 lbs 03/30/2015 Blood Pressure 1: 132/86 Code: 8480-6 BMI: 35.2 Code: 19328-5 Heart Rate 1: 84 bpm Height: 5'6" Respiratory Rate: 24 bpm Temperature: 36 .7 (C) / 98.0 (F) Weight: 215 lbs 02/03/2015 Blood Pressure 1: 122/74 Code: 8480-6 BMI: 35.7 Code: 40536-7 Heart Rate 1: 84 bpm Height: 5'6" Respiratory Rate: 20 bpm Temperature: 36 .9 (C) / 98.5 (F) Weight: 218 lbs 12/29/2014 Blood Pressure 1: 132/80 Code: 8480-6 BMI: 35.1 Code: 94503-3 Heart Rate 1: 80 bpm Height: 5'6" Respiratory Rate: 20 bpm Temperature: 36 .6 (C) / 97.8 (F) Weight: 214 lbs 09/02/2014 Blood Pressure 1: 128/92 Code: 8480-6 BMI: 34.7 Code: 77497-3 Heart Rate 1: 84 bpm Height: 5'6" Respiratory Rate: 26 bpm Temperature: 36 .8 (C) / 98.2 (F) Weight: 212 lbs 08/25/2014 Blood Pressure 1: 124/80 Code: 8480-6 BMI: 34.7 Code: 06827-7 Heart Rate 1: 78 bpm Height: 5'6" Respiratory Rate: 22 bpm SpO2: 97% Tempera ture: 36.6 (C) / 97.8 (F) Weight: 212 lbs 04/01/2014 Blood Pressure 1: 142/84 Code: 8480-6 BMI: 34.4 Code: 42087-2 Heart Rate 1: 74 bpm Height: 5'5" Respiratory Rate: 20 bpm Temperature: 36 .4 (C) / 97.6 (F) Weight: 207 lbs 03/16/2014 Blood Pressure 1: 142/90 Code: 8480-6 BMI: 34.6 Code: 64178-8 Heart Rate 1: 76 bpm Height: 5'5" Respiratory Rate: 24 bpm Temperature: 36 .5 (C) / 97.7 (F) Weight: 208 lbs 03/09/2014 Blood Pressure 1: 116/70 Code: 8480-6 BMI: 35.3 Code: 43897-9 Heart Rate 1: 72 bpm Height: 5'5" [...] 1: 128/86 Code: 8480-6 BMI: 34.3 Code: 65118-1 Heart Rate 1: 84 bpm Height: 5'5" Respiratory Rate: 20 bpm Temperature: 36 .7 (C) / 98.0 (F) Weight: 206 lbs 12/23/2013 Blood Pressure 1: 122/70 Code: 8480-6 BMI: 34.3 Code: 64559-4 Heart Rate 1: 68 bpm Height: 5'5" Respiratory Rate: 20 bpm Temperature: 36 .8 (C) / 98.2 (F) Weight: 206 lbs 10/05/2013 Blood Pressure 1: 118/76 Code: 8480-6 BMI: 34.1 Code: 63401-8 Heart Rate 1: 68 bpm Height: 5'5" Respiratory Rate: 20 bpm SpO2: 98% Tempera ture: 36.6 (C) / 97.9 (F) Weight: 205 lbs 08/04/2013 Blood Pressure 1: 126/82 Code: 8480-6 BMI: 33.3 Code: 56616-0 Heart Rate 1: 76 bpm Height: 5'5" Respiratory Rate: 20 bpm Temperature: 36 .8 (C) / 98.2 (F) Weight: 200 lbs 07/03/2013 Blood Pressure 1: 124/82 Code: 8480-6 BMI: 33.3 Code: 48914-6 Heart Rate 1: 72 bpm Height: 5'5" Respiratory Rate: 22 bpm Temperature: 36 .1 (C) / 97.0 (F) Weight: 200 lbs 05/27/2013 Blood Pressure 1: 126/82 Code: 8480-6 Heart Rate 1: 74 bpm Respiratory Rate: 20 bpm Temperature: 36.0 (C) / 96.8 (F) Weight: 199 lbs 04/06/2013 Blood Pressure 1: 118/80 Code: 8480-6 BMI: 35.2 Code: 82362-9 Heart Rate 1: 80 bpm Height: 5'4" Respiratory Rate: 20 bpm Temperature: 37 .4 (C) / 99.3 (F) Weight: 205 lbs 11/10/2012 Blood Pressure 1: 128/82 Code: 8480-6 Heart Rate 1: 84 bpm Respiratory Rate: 20 bpm Temperature: 36.7 (C) / 98.0 (F) Weight: 199 lbs 09/02/2012 Blood Pressure 1: 11682 Code: 8480-6 BMI: 34.2 Code: 33714-5 Heart Rate 1: 88 bpm Height: 5'4" Respiratory Rate: 22 bpm Temperature: 36 .6 (C) / 97.8 (F) Weight: 199 lbs 08/04/2012 Blood Pressure 1: 128/74 Code: 8480-6 BMI: 34.0 Code: 15206-2 Heart Rate 1: 92 bpm Height: 5'4" Respiratory Rate: 20 bpm Temperature: 36 .4 (C) / 97.5 (F) Weight: 198 lbs 07/21/2012 Blood Pressure 1: 124/86 Code: 8480-6 Heart Rate 1: 116 bpm Respiratory Rate: 24 bpm Temperature: 36.8 (C) / 98.2 (F) 07/02/2012 Blood Pressure 1: 116/88 Code: 8480-6 BMI: 33.6 Code: 30906-0 Heart Rate 1: 76 bpm Height: 5'4" Respiratory Rate: 20 bpm Temperature: 36 .8 (C) / 98.3 (F) Weight: 196 lbs 06/24/2012 Blood Pressure 1: 124/80 Code: 8480-6 BMI: 34.3 Code: 14480-6 Heart Rate 1: 72 bpm Height: 5'4" SpO2: 96% Temperature: 36.3 (C) / 97.3 (F) Weight: 200 lbs 05/20/2012 Blood Pressure 1: 116/88 Code: 8480-6 BMI: 33.8 Code: 10612-3 Heart Rate 1: 80 bpm Height: 5'4" Respiratory Rate: 22 bpm Temperature: 36 .9 (C) / 98.4 (F) Weight: 197 lbs 05/08/2012 Blood Pressure 1: 128/86 Code: 8480-6 BMI: 33.8 Code: 91752-5 Heart Rate 1: 76 bpm Height: 5'4" Respiratory Rate: 26 bpm SpO2: 95% Tempera ture: 36.1 (C) / 97.0 (F) Weight: 197 lbs 04/22/2012 Blood Pressure 1: 106/64 Code: 8480-6 BMI: 33.8 Code: 45523-3 Heart Rate 1: 70 bpm Height: 5'4" Temperature: 36.1 (C) / 97.0 (F) Weight: 197 lbs 02/13/2012 Blood Pressure 1: 126/82 Code: 8480-6 BMI: 34.7 Code: 39163-3 Heart Rate 1: 64 bpm Height: 5'4" Respiratory Rate: 20 bpm Temperature: 36 .6 (C) / 97.8 (F) Weight: 202 lbs 01/28/2012 Blood Pressure 1: 116/80 Code: 8480-6 BMI: 34.7 Code: 09729-3 Heart Rate 1: 76 bpm Height: 5'4" Respiratory Rate: 20 bpm Temperature: 36 .8 (C) / 98.3 (F) Weight: 202 lbs 12/26/2011 Blood Pressure 1: 132/82 Code: 8480-6 BMI: 36.0 Code: 81782-0 Heart Rate 1: 68 bpm Height: 5'4" Respiratory Rate: 22 bpm Temperature: 36 .7 (C) / 98.0 (F) Weight: 210 lbs 11/14/2011 Blood Pressure 1: 124/80 Code: 8480-6 BMI: 36.4 Code: 90351-2 Heart Rate 1: 76 bpm Height: 5'4" Respiratory Rate: 20 bpm Temperature: 36 .8 (C) / 98.2 (F) Weight: 212 lbs 09/12/2011 Blood Pressure 1: 108/74 Code: 8480-6 BMI: 37.1 Code: 57269-3 Heart Rate 1: 72 bpm Height: 5'4" Respiratory Rate: 20 bpm Temperature: 37 .0 (C) / 98.6 (F) Weight: 216 lbs 08/15/2011 Blood Pressure 1: 122/80 Code: 8480-6 BMI: 36.9 Code: 29140-3 Heart Rate 1: 76 bpm Height: 5'4" Respiratory Rate: 20 bpm Temperature: 36 .2 (C) / 97.1 (F) Weight: 215 lbs 08/09/2011 Blood Pressure 1: 112/78 Code: 8480-6 BMI: 36.9 Code: 70185-2 Heart Rate 1: 68 bpm Height: 5'4" Respiratory Rate: 20 bpm Temperature: 36 .7 (C) / 98.0 (F) Weight: 215 lbs 07/03/2011 Blood Pressure 1: 140/94 Code: 8480-6 BMI: 36.2 Code: 17299-0 Heart Rate 1: 68 bpm Height: 5'4" Temperature: 36.0 (C) / 96.8 (F) Weight: 211 lbs 06/04/2011 Blood Pressure 1: 124/70 Code: 8480-6 BMI: 36.7 Code: 46717-7 Heart Rate 1: 68 bpm Height: 5'4" Respiratory Rate: 20 bpm Temperature: 36 .6 (C) / 97.9 (F) Weight: 214 lbs 05/03/2011 Blood Pressure 1: 130/76 Code: 8480-6 BMI: 36.4 Code: 52712-6 Heart Rate 1: 74 bpm Height: 5'5" Temperature: 36.2 (C) / 97.2 (F) Weight: 219 lbs 04/05/2011 Blood Pressure 1: 124/86 Code: 8480-6 BMI: 35.9 Code: 37522-8 Heart Rate 1: 76 bpm Height: 5'6" Respiratory Rate: 22 bpm Temperature: 36 .3 (C) / 97.3 (F) Weight: 219 lbs 03/08/2011 Blood Pressure 1: 112/78 Code: 8480-6 BMI: 35.1 Code: 09719-7 Heart Rate 1: 80 bpm Height: 5'6" Respiratory Rate: 26 bpm Temperature: 36 .9 (C) / 98.4 (F) Weight: 214 lbs 01/24/2011 Blood Pressure 1: 110/82 Code: 8480-6 BMI: 35.6 Code: 61629-4 Heart Rate 1: 80 bpm Height: 5'6" Temperature: 36.1 (C) / 97.0 (F) Weight: 217 lbs 01/02/2011 Blood Pressure 1: 106/72 Code: 8480-6 BMI: 35.6 Code: 05992-4 Heart Rate 1: 76 bpm Height: 5'6" [...] 1: 120/74 Code: 8480-6 BMI: 35.9 Code: 67288-6 Heart Rate 1: 72 bpm Height: 5'5" Temperature: 36.3 (C) / 97.4 (F) Weight: 216 lbs 09/19/2010 Blood Pressure 1: 124/80 Code: 8480-6 BMI: 35.4 Code: 50964-2 Heart Rate 1: 76 bpm Height: 5'5" [...] 1: 122/78 Code: 8480-6 BMI: 37.4 Code: 26127-0 Heart Rate 1: 84 bpm Height: 5'5" [...] up 10/26/2015 ER visit from at [facility] for COPD Exacerbation follow up 10/05/2015 ER Visit gait abnormality 09/15/2015 Patient requesting kelly pineda paperwork to be filled out disturbances of thinking 08/24/2015 follow up 07/05/2015 4wk fwup follow up 06/06/2015 [facility] cough 05/23/2015 follow up 05/05/2015 dyspnea 03/30/2015 [facility] needs new orde r for O2 abdominal pain 02/03/2015 cyst 12/29/2014 vs abscess follow up 09/02/2014 [facility] headache 08/25/2014 facial drooping follow up 04/01/2014 ER follow up 03/16/2014 1wk fwup follow up 03/09/2014 1mo fwup and bronchi tis fwup follow up 03/03/2014 2 day follow up 03/01/2014 ER follow up 02/09/2014 [facility] gastroesophageal reflux 12/23/2013 painful urination 10/30/2013 [...] 08/04/2012 2wk fwup follow up 07/21/2012 [facility]--[facility] an sore throat 07/02/2012 headache 06/25/2012 request [...] up 10/18/[address] Medrano last w [facility], having increased allergy symptoms. Would like steroid [...] month f/u follow up 12/07/2009 from [facility], done with PT--finished about 2wks ago follow up 11/08/2009 2wk fwup follow up 10/24/2009 hosp fwup ~generic 07/25/2009 bilateral earlobe re dness/swelling, pain radiating into neck, refill Demerol ~generic 05/26/2009 FALLING A LOT, SAVEL LA NOT HELPING FIBROMYALGIA PAIN, LT HAND LACERATION-FELL INTO NAIL 05/25/09 Encounters Encounter Performer Location Codes Date () OFFICE/OUTPATIENT VISIT EST Diagnosis: Inspiratory stridor[ICD10: R06.1] Diagnosis: Diarrhea[ICD10: R19.7] Belia Reid [facility] CPT-4: 9921 3 07/06/2019 ([id number]) OFFICE/OUTPATIENT VISIT EST Diagnosis: Left leg swelling[ICD10: M79.89] Diagnosis: Dyspnea[ICD10: R06.00] [facility] 9921 3 06/24/2019 ([id number]) OFFICE/OUTPATIENT VISIT EST Diagnosis: Acute bronchitis[ICD10: J20.9] Diagnosis: Colitis[ICD10: K52.9] Belia REID [facility] CPT-4: 16421 06/16/2019 ([id number]) OFFICE/OUTPATIENT VISIT EST Diagnosis: Diarrhea[ICD10: R19.7] Diagnosis: Abdominal bloating[ICD10: R14.0] Belia Reid [facility] CPT- 4: 90572 06/08/2019 ([id number]) OFFICE/OUTPATIENT VISIT EST Diagnosis: Acute febrile illness[ICD10: R50.9] Diagnosis: Colitis[ICD10: K52.9] Belia Reid [facility] CPT-4: 88408 05/26/2019 ([id number]) OFFICE/OUTPATIENT VISIT EST Diagnosis: Chronic obstructive pulmonary disease, unspecified[ICD10: J44.9] Diagnosis: Pulmonary fibrosis[ICD10: J84.10] Diagnosis: Intermittent stridor[ICD10: R06.1] Diagnosis: Muscle weakness[ICD10: M62.81] Belia REID [facility] CPT-4: 27947 05/13/2019 ([id number]) OFFICE/OUTPATIENT VISIT EST Diagnosis: Stridor[ICD10: R06.1] Diagnosis: COUGH[ICD10: R05] Belia REID [facility] CPT-4: 45887 05/06/2019 ([id number]) OFFICE/OUTPATIENT VISIT EST Diagnosis: Stridor[ICD10: R06.1] Diagnosis: Muscle, jerky movements (uncontrolled)[ICD10: G25.5] Belia REID [facility] CPT-4: 09224 04/29/2019 ([id number]) OFFICE/OUTPATIENT VISIT EST Diagnosis: Upper respiratory infection[ICD10: J06.9] Diagnosis: Flank pain[ICD10: R10.9] Diagnosis: Weight gain[ICD10: R63.5] Pattie Bran [facility] CPT-4: 10459 04/16/2019 ([id number]) OFFICE/OUTPATIENT VISIT EST Diagnosis: Generalized pruritus[ICD10: L29.9] Belia REID [facility] CPT-4: 01000 04/08/2019 ([id number]) OFFICE/OUTPATIENT VISIT EST Diagnosis: Acute bursitis of left shoulder[ICD10: M75.52] Diagnosis: Cervicalgia[ICD10: M54.2] Diagnosis: Chest wall pain[ICD10: R07.89] Belia REID [facility] CPT-4: 72892 01/22/2019 ([id number]) OFFICE/OUTPATIENT VISIT EST Diagnosis: Abdominal pain[ICD10: R10.9] Diagnosis: Pyelonephritis[ICD10: N12] Pattie DOMINGUEZ [facility] CPT-4: 10467 01/07/2019 ([id number]) OFFICE/OUTPATIENT VISIT EST Diagnosis: Low back pain[ICD10: M54.5] Diagnosis: Left lumbar radiculopathy[ICD10: M54.16] Diagnosis: Left flank pain[ICD10: R10.9] Diagnosis: Left lower quadrant pain[ICD10: R10.32] Diagnosis: FLU VACCINE[ICD10: Z23] Belia FREDERICK [facility] CPT-4: 74278 12/24/2018 ([id number]) OFFICE/OUTPATIENT VISIT EST Diagnosis: Migraine, unspecified, not intractable, without status migrainosus[ICD10: G43.909] Diagnosis: Fibromyalgia[ICD10: M79.7] Belia DOMINGUEZ [facility] CPT-4: 02283 11/20/2018 ([id number]) OFFICE/OUTPATIENT VISIT EST Diagnosis: Migraine, unspecified, intractable, without status migrainosus[ICD10: G43.919] Diagnosis: Acute sinusitis, unspecified[ICD10: J01.90] [facility] 32624 11/04/2018 ([id number]) OFFICE/OUTPATIENT VISIT EST Diagnosis: Pain in left wrist[ICD10: M25.532] Diagnosis: Other dorsalgia[ICD10: M54.89] Pattie REID [employer] [facility] CPT-4: 29610 09/08/2018 ([id number]) OFFICE/OUTPATIENT VISIT EST Diagnosis: Acute stress reaction[ICD10: F43.0] Diagnosis: Pruritus, unspecified[ICD10: L29.9] 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, 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] Belia REID DO [facility] CPT-4: 34751 08/20/2018 ([id number]) OFFICE/OUTPATIENT VISIT EST Diagnosis: Hypotension due to drugs[ICD10: I95.2] Diagnosis: Paroxysmal atrial fibrillation[ICD10: I48.0] Diagnosis: Localized edema[ICD10: R60.0] Belia REID DO [facility] CPT-4: 81006 06/19/2018 ([id number]) OFFICE/OUTPATIENT VISIT EST Diagnosis: Generalized hyperhidrosis[ICD10: R61] Diagnosis: Essential (primary) hypertension[ICD10: I10] Diagnosis: Supraventricular tachycardia[ICD10: I47.1] Belia REID [employer] [facility] CPT-4: 09597 06/09/2018 ([id number]) OFFICE/OUTPATIENT VISIT EST Diagnosis: Stridor[ICD10: R06.1] Diagnosis: Dependence on supplemental oxygen[ICD10: Z99.81] Diagnosis: Weakness[ICD10: R53.1] Diagnosis: Supraventricular tachycardia[ICD10: I47.1] Belia REID [employer] [facility] CPT-4: 43894 05/21/2018 ([id number]) OFFICE/OUTPATIENT VISIT EST Diagnosis: Cervical disc disorder with radiculopathy, unspecified cervical region[ICD10: M50.10] Belia REID [employer] [facility] CPT-4: 03721 04/16/2018 ([id number]) OFFICE/OUTPATIENT VISIT EST Diagnosis: Migraine, unspecified, intractable, without status migrainosus[ICD10: G43.919] Diagnosis: Fibromyalgia[ICD10: M79.7] Pattie DOMINGUEZ [facility] CPT-4: 45142 04/01/2018 ([id number]) NURSE/OUTPATIENT VISIT EST Diagnosis: Hematuria, unspecified[ICD10: R31.9] Diagnosis: Dysuria[ICD10: R30.0] Belia REID [facility] CPT-4: 70787 03/17/2018 ([id number]) OFFICE/OUTPATIENT VISIT EST Diagnosis: Erythema intertrigo[ICD10: L30.4] Diagnosis: Chronic obstructive pulmonary disease with (acute) exacerbation[ICD10: J44.1] Diagnosis: Type 2 diabetes mellitus with hyperglycemia[ICD10: E11.65] Belia REID [facility] CPT-4: 40783 03/06/2018 ([id number]) OFFICE/OUTPATIENT VISIT EST Diagnosis: Cervicalgia[ICD10: M54.2] Pattie AMBRIZ [facility] CPT-4: 72204 02/05/2018 ([id number]) OFFICE/OUTPATIENT VISIT EST Diagnosis: Candidiasis of skin and nail[ICD10: B37.2] Diagnosis: Cervicalgia[ICD10: M54.2] Pattie AMBRIZ [facility] CPT-4: 58737 01/20/2018 ([id number]) OFFICE/OUTPATIENT VISIT EST Diagnosis: Pain in thoracic spine[ICD10: M54.6] Diagnosis: Radiculopathy, thoracic region[ICD10: M54.14] Belia REID [facility] CPT-4: 91613 12/25/2017 ([id number]) OFFICE/OUTPATIENT VISIT EST Diagnosis: Pain in thoracic spine[ICD10: M54.6] Diagnosis: Other muscle spasm[ICD10: M62.838] Diagnosis: FLU VACCINE[ICD10: Z23] Diagnosis: PNEUMOCOCCAL VACCINE[ICD10: Z23] Belia REID DO [facility] CPT-4: 53583 12/17/2017 ([id number]) OFFICE/OUTPATIENT VISIT EST Diagnosis: Chronic obstructive pulmonary disease with (acute) exacerbation[ICD10: J44.1] Belai REID DO [facility] CPT- 4: 13250 10/30/2017 ([id number]) OFFICE/OUTPATIENT VISIT EST Diagnosis: Chronic obstructive pulmonary disease with acute lower respiratory infection[ICD10: J44.0] Diagnosis: Mild intermittent asthma with (acute) exacerbation[ICD10: J45.21] Belia REID DO [facility] CPT-4: 72173 10/23/2017 ([id number]) NURSE/OUTPATIENT VISIT EST Diagnosis: Migraine, unspecified, not intractable, without status migrainosus[ICD10: G43.909] Belia REID DO [facility] CPT - 4: 35029 08/26/2017 ([id number]) OFFICE/OUTPATIENT VISIT EST Diagnosis: Urinary tract infection, site not specified[ICD10: N39.0] Diagnosis: Encounter for screening for osteoporosis[ICD10: Z13.820] Diagnosis: Encounter for screening mammogram for malignant neoplasm of breast[ICD10: Z12.31] Diagnosis: Acute bronchitis, unspecified[ICD10: J20.9] Pattie REID DO [facility] CPT-4: 25542 07/19/2017 ([id number]) OFFICE/OUTPATIENT VISIT EST Diagnosis: Rash and other nonspecific skin eruption[ICD10: R21] Pattie REID DO [facility] CPT-4: 62680 05/29/2017 ([id number]) OFFICE/OUTPATIENT VISIT EST Diagnosis: Diarrhea, unspecified[ICD10: R19.7] Diagnosis: Tinea corporis[ICD10: B35.4] Diagnosis: Tinea cruris[ICD10: B35.6] Diagnosis: Migraine, unspecified, not intractable, without status migrainosus[ICD10: G43.909] Belia REID DO [facility] CPT - 4: 90538 05/07/2017 ([id number]) OFFICE/OUTPATIENT VISIT EST Diagnosis: Stridor[ICD10: R06.1] Diagnosis: Chronic obstructive pulmonary disease with (acute) exacerbation[ICD10: J44.1] Belia REID DO [facility] CPT- 4: 17735 03/18/2017 ([id number]) OFFICE/OUTPATIENT VISIT EST Diagnosis: Type 2 diabetes mellitus with hyperglycemia[ICD10: E11.65] Belia REID DO [facility] CPT-4: 04182 02/27/2017 OFFICE/OUTPATIENT VISIT EST Diagnosis: Type 2 diabetes mellitus with hyperglycemia[ICD10: E11.65] Pattie REID DO [facility] CPT-4: 76411 02/22/2017 ([id number]) OFFICE/OUTPATIENT VISIT EST Diagnosis: Urinary tract infection, site not specified[ICD10: N39.0] Diagnosis: Pneumonia, unspecified organism[ICD10: J18.9] Diagnosis: Type 2 diabetes mellitus with hyperglycemia[ICD10: E11.65] Belia REID DO [facility] CPT-4: 94874 01/23/2017 ([id number]) OFFICE/OUTPATIENT VISIT EST Diagnosis: Type 2 diabetes mellitus with hyperglycemia[ICD10: E11.65] Diagnosis: Localized edema[ICD10: R60.0] Diagnosis: PNEUMOCOCCAL VACCINE[ICD10: Z23] Diagnosis: FLU VACCINE[ICD10: Z23] Belia FREDERICK [facility] CPT-4: 39386 12/20/2016 OFFICE/OUTPATIENT VISIT EST Diagnosis: Pain in thoracic spine[ICD10: M54.6] Diagnosis: Low back pain[ICD10: M54.5] Diagnosis: Cervicalgia[ICD10: M54.2] Diagnosis: Cough[ICD10: R05] Celeste Ferreira BELIA REID DO [facility] CPT-4: 91044 10/08/2016 ([id number]) OFFICE/OUTPATIENT VISIT EST Diagnosis: Primary insomnia[ICD10: F51.01] Diagnosis: Migraine, unspecified, not intractable, without status migrainosus[ICD10: G43.909] Diagnosis: Type 2 diabetes mellitus with hyperglycemia[ICD10: E11.65] Belia REID DO [facility] CPT-4: 18010 09/19/2016 ([id number]) OFFICE/OUTPATIENT VISIT EST Diagnosis: Migraine, unspecified, not intractable, without status migrainosus[ICD10: G43.909] Diagnosis: Generalized abdominal pain[ICD10: R10.84] Diagnosis: Cough[ICD10: R05] Belia REID DO [facility] CPT-4: 00064 08/20/2016 ([id number]) OFFICE/OUTPATIENT VISIT EST Diagnosis: Chronic obstructive pulmonary disease, unspecified[ICD10: J44.9] Diagnosis: Stridor[ICD10: R06.1] Belia REID DO [facility] CPT-4: 51942 06/19/2016 ([id number]) OFFICE/OUTPATIENT VISIT EST Diagnosis: Chronic obstructive pulmonary disease, unspecified[ICD10: J44.9] Diagnosis: Personal history of urinary (tract) infections[ICD10: Z87.440] Belia REID DO [facility] CPT-4: 12668 06/04/2016 ([id number]) OFFICE/OUTPATIENT VISIT EST Diagnosis: Stridor[ICD10: R06.1] Diagnosis: Chronic obstructive pulmonary disease with acute lower respiratory infection[ICD10: J44.0] Diagnosis: Other specified diseases of intestine[ICD10: K63.89] Diagnosis: Cystitis, unspecified without hematuria[ICD10: N30.90] Belia REID DO [facility] CPT-4: 17129 05/02/2016 ([id number]) OFFICE/OUTPATIENT VISIT EST Diagnosis: Fibromyalgia[ICD10: M79.7] Diagnosis: Urinary tract infection, site not specified[ICD10: N39.0] Belia REID DO [facility] CPT-4: 36654 04/03/2016 ([id number]) OFFICE/OUTPATIENT VISIT EST Diagnosis: Unspecified asthma, uncomplicated[ICD10: J45.909] Diagnosis: Cough[ICD10: R05] Lidia Hwang BELIA REID DO [facility] T-4: 97453 02/29/2016 ([id number]) OFFICE/OUTPATIENT VISIT EST Diagnosis: Migraine, unspecified, intractable, without status migrainosus[ICD10: G43.919] Diagnosis: Urinary tract infection, site not specified[ICD10: N39.0] [facility]: 40594 02/02/2016 ([id number]) OFFICE/OUTPATIENT VISIT EST Diagnosis: Urinary tract infection, site not specified[ICD10: N39.0] Diagnosis: Unspecified abdominal pain[ICD10: R10.9] Diagnosis: Pain in thoracic spine[ICD10: M54.6] Diagnosis: Type 2 diabetes mellitus with diabetic neuropathic arthropathy[ICD10: E11.610] Belia Anushka [facility] C[facility]: 82580 12/05/2015 ([id number]) OFFICE/OUTPATIENT VISIT EST Diagnosis: Chronic obstructive pulmonary disease with (acute) exacerbation[ICD10: J44.1] Diagnosis: Migraine, unspecified, not intractable, without status migrainosus[ICD10: G43.909] Lidia HSUQUELINE BushraMayda [facility] CPT -[facility]: 73990 10/26/2015 ([id number]) OFFICE/OUTPATIENT VISIT EST Diagnosis: Hematuria, unspecified[ICD10: R31.9] Diagnosis: Urinary tract infection, site not specified[ICD10: N39.0] Lidia BRUNSON BushraMayda [facility] [employer] [facility] CPT-4: 16834 10/05/2015 OFFICE/OUTPATIENT VISIT EST Diagnosis: Chronic obstructive pulmonary disease, unspecified[ICD10: J44.9] Diagnosis: Muscle weakness (generalized)[ICD10: M62.81] Diagnosis: Polyneuropathy, unspecified[ICD10: G62.9] Diagnosis: Other intervertebral disc degeneration, 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] Diagnosis: Fibromyalgia[ICD10: M79.7] Belia Anushka [facility]IA [facility]idia [facility] CPT-[facility]: 02423 09/15/2015 ([id number]) OFFICE/OUTPATIENT VISIT EST Diagnosis: Disorientation, unspecified[ICD10: R41.0] Diagnosis: Headache[ICD10: R51] Diagnosis: Paresthesia of skin[ICD10: R20.2] Lidia Paredes BushraMayda [facility] CPT-4: 03642 08/24/2015 ([id number]) OFFICE/OUTPATIENT VISIT EST Diagnosis: Type 2 diabetes mellitus with hyperglycemia[ICD10: E11.65] Diagnosis: Chronic obstructive pulmonary disease with acute lower respiratory infection[ICD10: J44.0] Belia REID [facility] CPT-4: 94080 07/05/2015 ([id number]) OFFICE/OUTPATIENT VISIT EST Diagnosis: Mild intermittent asthma with (acute) exacerbation[ICD10: J45.21] Diagnosis: Chronic obstructive pulmonary disease, unspecified[ICD10: J44.9] Belia REID [facility] CPT-4: 38658 06/06/2015 ([id number]) OFFICE/OUTPATIENT VISIT EST Diagnosis: Chronic obstructive pulmonary disease with (acute) exacerbation[ICD10: J44.1] Lidia REID [facility] CPT- 4: 68563 05/23/2015 ([id number]) OFFICE/OUTPATIENT VISIT EST Diagnosis: Type 2 diabetes mellitus with hyperglycemia[ICD10: E11.65] Diagnosis: Functional dyspepsia[ICD10: K30] Belia REID [facility] CPT-4: 50517 05/05/2015 ([id number]) OFFICE/OUTPATIENT VISIT EST Diagnosis: Type 2 diabetes mellitus with hyperglycemia[ICD10: E11.65] Diagnosis: Glycosuria[ICD10: R81] Diagnosis: Urinary tract infection, site not specified[ICD10: N39.0] Belia REID [facility] CPT-4: 08936 03/30/2015 ([id number]) OFFICE/OUTPATIENT VISIT EST Diagnosis: Generalized abdominal pain[ICD10: R10.84] Diagnosis: Diarrhea, unspecified[ICD10: R19.7] Diagnosis: Urinary tract infection, site not specified[ICD10: N39.0] Diagnosis: Gastro-esophageal reflux disease without esophagitis[ICD10: K21.9] Belia REID [facility] CPT-4: 70380 02/03/2015 ([id number]) OFFICE/OUTPATIENT VISIT EST Diagnosis: Other specified noninflammatory disorders of vagina[ICD10: N89.8] Diagnosis: Follicular disorder, unspecified[ICD10: L73.9] Diagnosis: Functional dyspepsia[ICD10: K30] Diagnosis: FLU VACCINE[ICD10: Z23] Belia SMITH [facility] CPT-4: 11072 12/29/2014 ([id number]) OFFICE/OUTPATIENT VISIT EST 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] Diagnosis: RESTLESS LEGS SYNDROME[ICD9: 333.94] Diagnosis: MIGRAINE NOS/NOT INTRCBL[ICD9: 346.90] [facility]PT[facility]: 44709 09/02/2014 ([id number]) OFFICE/OUTPATIENT VISIT EST Diagnosis: Cervical radiculopathy[ICD9: 723.4] Diagnosis: Cervicalgia[ICD9: 723.1] Diagnosis: Degenerative disc disease, cervical[ICD9: 722.4] 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I[ICD9: 250.00] [facility] CPT-[facility]: 31610 04/01/2014 OFFICE/OUTPATIENT VISIT EST Diagnosis: Reactive airway disease[ICD9: 493.90] Belia [facility] CPT[facility]: 44504 03/16/2014 ([id number]) OFFICE/OUTPATIENT VISIT EST Diagnosis: BRONCHITIS, ACUTE[ICD9: 466.0] Diagnosis: Reactive airway disease[ICD9: 493.90] Belia [facility] CPT-[facility]: 90765 03/09/2014 OFFICE/OUTPATIENT VISIT EST Diagnosis: BRONCHITIS, ACUTE[ICD9: 466.0] Diagnosis: WHEEZING[ICD9: 786.07] Huong [facility] CPT-4: 81494 03/03/2014 OFFICE/OUTPATIENT VISIT EST Diagnosis: BRONCHITIS, ACUTE[ICD9: 466.0] Diagnosis: WHEEZING[ICD9: 786.07] Huong [facility] CPT-4: 90925 03/01/2014 ([id number]) OFFICE/OUTPATIENT VISIT EST Diagnosis: GERD[ICD9: 530.81] Diagnosis: ARTHRALGIA-MULTIPLE SITES[ICD9: 719.49] Diagnosis: LUMB/LUMBOSAC DISC DEGEN[ICD9: 722.52] Diagnosis: - I - FIBROMYALGIA[ICD9: 729.1] Belia REID DO [facility] CPT-4: 62709 02/09/2014 ([id number]) OFFICE/OUTPATIENT VISIT EST Diagnosis: Peptic ulcer disease[ICD9: 533.90] Diagnosis: RESTLESS LEGS SYNDROME[ICD9: 333.94] Diagnosis: Neuropathy[ICD9: 355.9] Belia FREDERICK DO [facility] CPT-4: 04212 12/23/2013 ([id number]) OFFICE/OUTPATIENT VISIT EST Diagnosis: URINARY TRACT INFECTION[ICD9: 599.0] Belia REID DO [facility] CPT-4: 59209 10/30/2013 ([id number]) OFFICE/OUTPATIENT VISIT EST Diagnosis: Flank pain[ICD9: 789.00] Belia MARTINEZ [facility] CPT-4: 99728 10/21/2013 ([id number]) OFFICE/OUTPATIENT VISIT EST Diagnosis: INFLAMED SEBORR KERATOS[ICD9: 702.11] Diagnosis: Brachioradial pruritus[ICD9: 698.9] Diagnosis: ASTHMA NOS[ICD9: 493.90] Belia MARTINEZ [facility] CPT-4: 01248 10/05/2013 ([id number]) OFFICE/OUTPATIENT VISIT EST Diagnosis: HYPERTENSION[ICD9: 401.9] Diagnosis: - I - FIBROMYALGIA[ICD9: 729.1] Diagnosis: DIZZINESS/VERTIGO[ICD9: 780.4] Diagnosis: MIGRAINE NOS/NOT INTRCBL[ICD9: 346.90] Diagnosis: Diabetic peripheral neuropathy[ICD9: 250.60] Diagnosis: Flank pain[ICD9: 789.00] Belia MARTINEZ [facility] CPT-4: 44032 08/04/2013 ([id number]) OFFICE/OUTPATIENT VISIT EST Diagnosis: ALLERGIC RHINITIS[ICD9: 477.9] Belia REID DO [facility] CPT-4: 85261 07/13/2013 OFFICE/OUTPATIENT VISIT EST Diagnosis: URINARY TRACT INFECTION[ICD9: 599.0] Huong Van[facility]ecelaere [facility] CPT-4: 06609 07/03/2013 OFFICE/OUTPATIENT VISIT EST Diagnosis: HYPERTENSION[ICD9: 401.9] Diagnosis: URINARY TRACT INFECTION[ICD9: 599.0] Diagnosis: BACKACHE[ICD9: 724.5] Diagnosis: URINARY INCONTINENCE[ICD9: 788.30] Huong D [employer] REID [facility] CPT-4: 55481 05/27/2013 ([id number]) OFFICE/OUTPATIENT VISIT EST Diagnosis: Flank pain[ICD9: 789.00] Belia Zacharynilson BELIA Yuridia POOLE [facility] CPT-4: 12404 05/25/2013 ([id number]) OFFICE/OUTPATIENT VISIT EST Diagnosis: B-COMPLEX DEFIC NEC[ICD9: 266.2] Belia Zacharynilson BELIA BushraMayda [facility] CPT-4: 33185 05/04/2013 ([id number]) OFFICE/OUTPATIENT VISIT EST Diagnosis: ALLERGIC RHINITIS[ICD9: 477.9] Diagnosis: Vitamin B12 deficiency[ICD9: 266.2] Belia Zacharynilson ARACELISROBERTOFelicita DONNA Yuridia [facility] CPT-4: 23575 04/17/2013 ([id number]) OFFICE/OUTPATIENT VISIT EST 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I[ICD9: 250.00] Diagnosis: URINARY TRACT INFECTION[ICD9: 599.0] Diagnosis: DIZZINESS/VERTIGO[ICD9: 780.4] Diagnosis: DIARRHEA[ICD9: 787.91] Belia BRUNSON BushraaMyda ZACHARYBECKYReggie Peguero [facility] CPT-4: 65940 04/06/2013 ([id number]) OFFICE/OUTPATIENT VISIT EST Diagnosis: URINARY TRACT INFECTION[ICD9: 599.0] Diagnosis: URINARY RETENTION[ICD9: 788.20] Belia Zacharynilson BELIA BushraMayda ANUSHKA [facility] CPT-4: 71652 11/10/2012 ([id number]) OFFICE/OUTPATIENT VISIT EST Diagnosis: TACHYCARDIA[ICD9: 785.0] Diagnosis: SYNCOPE AND COLLAPSE[ICD9: 780.2] Diagnosis: CONSCIOUSNS ALTERAT NEC[ICD9: 780.09] Belia CALVO BushraMayda [facility] CPT-4: 54959 09/02/2012 OFFICE/OUTPATIENT VISIT EST Diagnosis: TACHYCARDIA[ICD9: 785.0] Diagnosis: SYNCOPE AND COLLAPSE[ICD9: 780.2] Belia REID [facility] CPT-4: 13982 08/04/2012 ([id number]) OFFICE/OUTPATIENT VISIT EST Diagnosis: Loss of consciousness[ICD9: 780.09] Diagnosis: Tachycardia[ICD9: 785.0] Diagnosis: MALAISE AND FATIGUE[ICD9: 780.79] Belia [facility] CPT-[facility]: 66030 07/21/2012 ([id number]) OFFICE/OUTPATIENT VISIT EST Diagnosis: BRONCHITIS, ACUTE[ICD9: 466.0] Diagnosis: ASTHMA NOS[ICD9: 493.90] Belia POOLE [facility] CPT-4: 89957 07/02/2012 ([id number]) OFFICE/OUTPATIENT VISIT EST Diagnosis: CEPHALGIA[ICD9: 784.0] Belia CORNELLLINE Yuridia [facility] CPT-4: 47920 06/25/2012 ([id number]) OFFICE/OUTPATIENT VISIT EST Diagnosis: GERD[ICD9: 530.81] Diagnosis: DIARRHEA[ICD9: 787.91] Diagnosis: URINARY TRACT INFECTION[ICD9: 599.0] Diagnosis: ASTHMA NOS[ICD9: 493.90] Diagnosis: ALLERGIC RHINITIS[ICD9: 477.9] [facility] CPT-[facility]: 09588 06/24/2012 ([id number]) OFFICE/OUTPATIENT VISIT EST Diagnosis: MIGRAINE NOS/NOT INTRCBL[ICD9: 346.90] Diagnosis: TREMOR NEC[ICD9: 333.1] Diagnosis: CHRONIC PAIN SYNDROME[ICD9: 338.4] Belia HSUSONIA SALAZAR Yuridia [facility] CPT-4: 18375 05/20/2012 ([id number]) OFFICE/OUTPATIENT VISIT EST Diagnosis: DIZZINESS/VERTIGO[ICD9: 780.4] Diagnosis: PALPITATIONS[ICD9: 785.1] Diagnosis: TREMOR NEC[ICD9: 333.1] Diagnosis: ANXIETY STATE NOS[ICD9: 300.00] Diagnosis: POSTTRAUMATIC STRESS DISORDER[ICD9: 309.81] Belia TomlinsonMayda ANUSHKA [employer] [facility] CPT-4: 43707 05/08/2012 ([id number]) OFFICE/OUTPATIENT VISIT EST Diagnosis: MIGRAINE NOS/NOT INTRCBL[ICD9: 346.90] Diagnosis: FIBROMYALGIA[ICD9: 729.1] Diagnosis: SYNCOPE AND COLLAPSE[ICD9: 780.2] Diagnosis: Diabetic peripheral neuropathy[ICD9: 250.60] Belia TomlinsonMayda ANUSHKA [employer] [facility] CPT-4: 43237 04/22/2012 OFFICE/OUTPATIENT VISIT EST Diagnosis: ROTATOR CUFF DIS NEC[ICD9: 726.19] Diagnosis: JOINT PAIN-SHLDER[ICD9: 719.41] Diagnosis: DYSPEPSIA[ICD9: 536.8] Belia CORNELLLINE BushraMayda RALF Peg[employer] [facility] CPT-4: 97765 02/13/2012 ([id number]) OFFICE/OUTPATIENT VISIT EST Diagnosis: MIGRAINE NOS/NOT INTRCBL[ICD9: 346.90] Diagnosis: GERD[ICD9: 530.81] Diagnosis: DYSPEPSIA[ICD9: 536.8] Belia CORNELLLINE BushraMayda RALF Peguero [employer] [facility] CPT-4: 52293 01/28/2012 OFFICE/OUTPATIENT VISIT EST Diagnosis: CEPHALGIA[ICD9: 784.0] Diagnosis: MIGRAINE NOS/NOT INTRCBL[ICD9: 346.90] Diagnosis: GERD[ICD9: 530.81] Diagnosis: INSOMNIA NOS[ICD9: 780.52] Belia HSUQUELINE BushraMayda RAND DAILEYER [employer] [facility] CPT-4: 62840 12/26/2011 ([id number]) OFFICE/OUTPATIENT VISIT EST Diagnosis: CEPHALGIA[ICD9: 784.0] Diagnosis: MIGRAINE NOS/NOT INTRCBL[ICD9: 346.90] Diagnosis: MALAISE AND FATIGUE[ICD9: 780.79] Diagnosis: FIBROMYALGIA[ICD9: 729.1] Diagnosis: ALLERGIC RHINITIS[ICD9: 477.9] Belia Zacharynilson BELIA Bushra Mayda ANUSHKA [employer] [facility] CPT-4: 04630 11/14/2011 ([id number]) OFFICE/OUTPATIENT VISIT EST Diagnosis: MALAISE AND FATIGUE[ICD9: 780.79] Diagnosis: MUSCLE WEAKNESS-GENERAL[ICD9: 728.87] Diagnosis: MIGRAINE NOS/NOT INTRCBL[ICD9: 346.90] Diagnosis: JOINT PAIN-SHLDER[ICD9: 719.41] Belia TomlinsonMayda ANUSHKA [facility] CPT-4: 00046 09/12/2011 ([id number]) OFFICE/OUTPATIENT VISIT EST Diagnosis: CONCUSSION[ICD9: 850.9] Diagnosis: Ataxia[ICD9: 781.3] Diagnosis: DIZZINESS/VERTIGO[ICD9: 780.4] Belia CORNELLLINE Bushra Mayda ZACHARYBECKYOTONIEL [facility] CPT-4: 64458 08/15/2011 ([id number]) OFFICE/OUTPATIENT VISIT EST Diagnosis: THROMBOPHLEBITIS[ICD9: 451.9] Diagnosis: Subacromial bursitis[ICD9: 726.19] Diagnosis: ALLERGIC RHINITIS[ICD9: 477.9] Diagnosis: Lipoma[ICD9: 214.9] Belia CORNELLLINE BushraMayda ANUSHKA [facility] CPT-4: 00404 08/09/2011 ([id number]) OFFICE/OUTPATIENT VISIT EST Diagnosis: THROMBOPHLEBITIS[ICD9: 451.9] Diagnosis: Arm pain[ICD9: 729.5] Diagnosis: Clostridium difficile colitis[ICD9: 008.45] Diagnosis: URINARY TRACT INFECTION[ICD9: 599.0] Belia Humphriesbeckyotoniel CORNELL CLAYTON Shi ANUSHKA [facility] CPT-4: 83545 07/03/2011 ([id number]) OFFICE/OUTPATIENT VISIT EST Diagnosis: ARTHRALGIA-MULTIPLE SITES[ICD9: 719.49] Diagnosis: Muscle cramp[ICD9: 729.82] Diagnosis: INSOMNIA NOS[ICD9: 780.52] Belia [facility] CPT-[facility]: 75812 06/04/2011 OFFICE/OUTPATIENT VISIT EST Diagnosis: Headache[ICD9: 784.0] Diagnosis: Allergic rhinitis[ICD9: 477.9] Belia Zacharynilson Ohara ZACHARYBECKYOTONIEL [facility] CPT-4: 57632 05/03/2011 OFFICE/OUTPATIENT VISIT EST Diagnosis: LUMB/LUMBOSAC DISC DEGEN[ICD9: 722.52] Diagnosis: MIGRAINE NOS/NOT INTRCBL[ICD9: 346.90] Diagnosis: CHRONIC PAIN SYNDROME[ICD9: 338.4] Diagnosis: RESTLESS LEGS SYNDROME[ICD9: 333.94] Belia Zacharynilson ARNOLD Yuridia REID [facility] CPT-4: 01855 04/05/2011 OFFICE/OUTPATIENT VISIT EST Diagnosis: MIGRAINE NOS/NOT INTRCBL[ICD9: 346.90] Diagnosis: GERD[ICD9: 530.81] Belia CORNELLLINE Yuridia REID [facility] CPT-4: 18277 03/08/2011 OFFICE/OUTPATIENT VISIT EST Diagnosis: URINARY TRACT INFECTION[ICD9: 599.0] Diagnosis: Vertigo[ICD9: 780.4] Diagnosis: GERD[ICD9: 530.81] Belia CORNELLLINE Yuridia [facility] CPT-4: 04945 01/24/2011 OFFICE/OUTPATIENT VISIT EST Diagnosis: Hypotension[ICD9: 458.9] Diagnosis: Syncopal episodes[ICD9: 780.2] Diagnosis: MIGRAINE NOS/NOT INTRCBL[ICD9: 346.90] Diagnosis: MALAISE AND FATIGUE[ICD9: 780.79] Belia Paredes BushraMayda ANUSHKA [facility] CPT-4: 10101 01/02/2011 OFFICE/OUTPATIENT VISIT EST Diagnosis: Tinea cruris[ICD9: 110.3] Diagnosis: Intertrigo[ICD9: 695.89] Diagnosis: MIGRAINE NOS/NOT INTRCBL[ICD9: 346.90] Belia COKER BushraMayda [facility] CPT-4: 96612 12/07/2010 OFFICE/OUTPATIENT VISIT EST Diagnosis: PALPITATIONS[ICD9: 785.1] Diagnosis: ANXIETY STATE NOS[ICD9: 300.00] Belia Zacharynilson BRUNSON BushraMayda [facility] CPT-4: 02882 11/16/2010 OFFICE/OUTPATIENT VISIT EST Diagnosis: URINARY TRACT INFECTION[ICD9: 599.0] Diagnosis: MIGRAINE NOS/NOT INTRCBL[ICD9: 346.90] Iraida Robert SONJA [facility] CPT-4: 73663 11/02/2010 OFFICE/OUTPATIENT VISIT EST Diagnosis: ALLERGIC RHINITIS[ICD9: 477.9] Diagnosis: ANXIETY STATE NOS[ICD9: 300.00] Belia BRUNSON [facility] CPT-4: 09843 10/18/2010 OFFICE/OUTPATIENT VISIT EST Belia Shi [facility] CPT- 4: 31487 09/19/2010 OFFICE/OUTPATIENT VISIT EST Belia BRUNSON [facility] CPT- 4: 70772 09/06/2010 ([id number]) OFFICE/OUTPATIENT VISIT EST Beliaclayton CASILLAS [facility] CPT-4: 44588 08/10/2010 ([id number]) OFFICE/OUTPATIENT VISIT EST Belia CASILLAS [facility] CPT-4: 77883 05/11/2010 ([id number]) OFFICE/OUTPATIENT VISIT, EST Belia HSU QUELINE [facility] CPT-4: 62617 04/06/2010 ([id number]) OFFICE/OUTPATIENT VISIT, EST Belia HSU [facility] CPT-4: 41830 02/09/2010 ([id number]) OFFICE/OUTPATIENT VISIT, EST Belia HSU [facility] CPT-4: 27381 01/05/2010 ([id number]) OFFICE/OUTPATIENT VISIT, EST Belia HSU [facility] CPT-4: 23844 12/07/2009 ([id number]) OFFICE/OUTPATIENT VISIT, EST Belia Smithotoniel HSU [facility] CPT-4: 82203 11/08/2009 ([id number]) OFFICE/OUTPATIENT VISIT, EST Belia Smithotoniel HSU [facility] CPT-4: 71913 10/24/2009 ([id number]) OFFICE/OUTPATIENT VISIT, EST Belia Smithotoniel ARACELIS [facility] CPT-4: 36744 07/25/2009 ([id number]) OFFICE/OUTPATIENT VISIT, EST [facility] CPT-4: 77735 05/26/2009 Plan of Care Planned Activity Notes Codes Status Date Visit Diagnosis Plan: Inspiratory stridor Discussion: Continue oxygen via NC at 2 L Continue ativan at QID Follow Up: 4 weeks ICD-9 : 786.1 ICD-10 : R06.1 07/06/2019 Visit Diagnosis Plan: Diarrhea Discussion: Restart Col estid at once daily ICD-9 : 787.91 ICD-10 : R19.7 07/06/2019 Appointment: Belia Reid WPtel: [phone] [id number] [facility] 07/06/2019 Visit Diagnosis Plan: Left leg [...] R06.00 06/24/2019 Appointment: Belia Reid WPtel: [phone] [id number] [facility] 06/24/2019 Visit Diagnosis Plan: Colitis Discussion: Levaquin/[place] gyl [place] Diet ICD-9 : 558.9 ICD-10 : K52.9 06/16/2019 Visit Diagnosis Plan: Acute bronchitis Discussion: Cov er with levaquin Increase SVNs with albuterol to QID Has oxygen using q HS routinely and prn To ER if oxygen levels drop or worsening respiratory symptoms ICD-9 : 466.0 ICD-10 : J20.9 06/16/2019 Appointment: Belia Reid WPtel: [address] [place] [address] TELEMEDICINE 06/16/2019 Patient Education: Patel Optimize[employer]ACHARY Kate [phone] [email or web address] Completed 06/16/2019 Visit Diagnosis Plan: Diarrhea Discussion: Vancomycin for 10 days and notify if not improving or worsening BLAND diet Hydrate ICD-9 : 787.91 ICD-10 : R19.7 06/08/2019 Appointment: Belia Reid WPtel: [address] [place] [address] TELEMEDICINE 06/08/2019 Visit Diagnosis Plan: Colitis Discussion: Flagyl plus cipro to cover for both colitis and UTI Notify or to ER if worsening ICD-9 : 558.9 ICD-10 : K52.9 05/26/2019 Visit Diagnosis Plan: Acute febrile illness Discussion : Notify if worsens ICD-9 : 780.60 ICD-10 : R50.9 05/26/2019 Appointment: Belia Reid WPtel: [address] [place] [address] TELEMEDICINE 05/26/2019 Appointment: Pattie Sotomayor [address] RESCHEDULED 05/18/2019 Visit Diagnosis Plan: Chronic obstructive pulmonary di sease, unspecified Discussion: Recommend pulmonary rehab Patient states she never went to pulmonary rehab due to cost as well as transportation issues Finish trelagy Stop singulair Decrease hydroxyzine to 25mg po q HS Fwup [address] scan of Chest results discussed ICD-9 : 496 ICD-10 : J44.9 05/13/2019 Appointment: Belia Reid WPtel: [address] [place] [address] Hospital Follow Up 05/13/2019 Visit Diagnosis Plan: COUGH Discussion: Check CT scan of chest ICD-9 : 786.2 ICD-10 : R05 05/06/2019 Visit Diagnosis Plan: Stridor Discussion: Add Trelagy 1 p daily Add Singulair 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 ICD-9 : 786.1 ICD-10 : R06.1 05/06/2019 Appointment: Belia Reid WPtel: [address] [place], [place] [id number] FOLLOW UP 05/06/2019 Patient Education: Singulair- [employer] Coupon [phone] [email or web address] Completed 05/06/2019 Appointment: Belia Reid WPtel: [address] [place], [place] [id number] US RESCHEDULED 04/30/2019 Visit Diagnosis Plan: Stridor [...] : G25.5 04/29/2019 Appointment: Belia Reid WPtel: [address] [place] [address] Hospital Follow Up 04/29/2019 Patient Education: Valium- OptimizeRX Coupon [id number] https://www.MenuSpring/samplemd/resources/getResource/61/[email or web address] Completed 04/29/2019 Visit Diagnosis Plan: Flank pain [...] ICD-10 : R63.5 04/16/2019 Appointment: Pattie Sotomayor [address] [place] [address] ACUTE ILLNESS 04/16/2019 Patient Education: cyclobenzaprine- OptimizeRX Coupon [id number] https://www.MenuSpring/samplepa/resources/getResource/61/[email or web address]-p1 Completed 04/16/2019 Visit Diagnosis Plan: Migraine, unspecif ied, not intractable, without status migrainosus Discussion: Increase gabapentin to 600mg po BID ICD-9 : 346.90 ICD-10 : G43.909 04/08/2019 Visit Diagnosis Plan: Generalized pruritus Discussion: Hydroxyzine 25mg po TID for itching and anxiety ICD-9 : 698.9 ICD-10 : L29.9 04/08/2019 Appointment: Belia Reid WPtel: [address] [place] [address] ACUTE ILLNESS 04/08/2019 Visit Diagnosis Plan: Cervicalgia [...] : M75.52 01/22/2019 Appointment: Belia Reid WPtel: [facility] [address] Hospital Follow Up 01/22/2019 Visit Diagnosis Plan: Abdominal pain Discussion: urine culture sent to assess for any infection. rocephin given in office to cover for pyelonephritis. instructed to push fluids. call office with any new or worsening symptoms. ICD-9 : 789.00 ICD-10 : R10.9 01/07/2019 Appointment: Pattie Sotomayor [address] [place], [place] [phone] ACUTE ILLNESS 01/07/2019 Visit Diagnosis Plan: Low back pain Discussion: Stat C T of abdomen/pelvis now ICD-9 : 724.2 ICD-10 : M54.5 12/24/2018 Appointment: Belia Reidtel: [address] [place] [address] FOLLOW UP 12/24/2018 Visit Diagnosis Plan: Migraine, [...] : M79.7 11/20/2018 Appointment: Belia Reid WPtel: [address] [place] [address] ACUTE ILLNESS 11/20/2018 Patient Education: baclofen- OptimizeRX Coupon [id number] https://www.BrightTALK.com/samplemd/resources/getResource/61/1h5171m7-ey9b-63pp-09 Completed 11/20/2018 Visit Diagnosis Plan: Migraine, unspecif ied, intractable, without status migrainosus Discussion: toradol/phenergan given in o ffice (60 mg toradol, 12.5 mg phenergan). instructed to call if no improvement or worsening. instructed to follow up with hotel maintenance worker since headaches are occurring more frequently to make sure vision is not the cause. ICD-9 : 346.91 ICD-10 : G43.919 11/04/2018 Visit Diagnosis Plan: Acute sinusitis, unspecified Dis cussion: zithromax prescribed to cover for sinus infection due to length of symptoms and clinincal s/s. ICD-9 : 461.9 ICD-10 : J01.90 11/04/2018 Appointment: Pattie Sotomayor [address] [place] [address] ACUTE ILLNESS 11/04/2018 Appointment: Belia Reidtel: [phone] [facility] [facility] CANCELED 09/24/2018 Visit Diagnosis Plan: Type 2 diabetes me llitus with diabetic neuropathy, unspecified Discussion: Retry gabapentin 300mg po q HS ICD-9 : 250.60 ICD-10 : E11.40 09/18/2018 Visit Diagnosis Plan: Vitamin D deficiency, unspecifie d Discussion: Increase Vitamin D3 to 10,000 u daily ICD-9 : 268.9 ICD-10 : E55.9 09/18/2018 Visit Diagnosis Plan: [facility] without abnormal findings [...] : I10 09/18/2018 Appointment: Belia Reid WPtel: [facility] Annual Well Visit 09/18/2018 Patient Education: gabapentin- OptimizeRX Coupon [id number] https://www.BrightTALK.The Optima/samplemd/resources/getResource/61/[email or web address]-u3 Completed 09/18/2018 Visit Diagnosis Plan: Pain in [...] : M54.89 09/08/2018 Appointment: Pattie Sotomayor [address] [place] [address] ACUTE ILLNESS 09/08/2018 Patient Education: prednisone- OptimizeRX Coupon [id number] https://www.BrightTALK.com/samplemd/resources/getResource/61/3q7vp96y-0327-02a7-xh Completed 09/08/2018 Visit Diagnosis Plan: Pruritus, unspecified [...] : E10.9 08/20/2018 Appointment: Belia Reid WPtel: [address] [place] [address] ACUTE ILLNESS 08/20/2018 Patient Education: Lexapro- OptimizeRX Coupon [id number] Completed 08/20/2018 Patient Education: hydroxyzine HCl- OptimizeRX Coupon [id number] Completed 08/20/2018 Care Plan: MAMMOGRAM SCREENING INC : 2 6347-5 Pending 08/20/2018 Visit Diagnosis Plan: Paroxysmal atrial fibrillation D iscussion: Discuss eliquis need with cardiology at [facility] due to cost ICD-9 : 427.31 ICD-10 : I48.0 06/19/2018 Visit Diagnosis Plan: Hypotension due to drugs Discuss ion: Discussed decreasing cardizem dose due to low BP and edema but sees cardiology next week Follow Up: 1 months ICD-9 : 458.8 ICD-10 : I95.2 06/19/2018 Appointment: Belia Reid WPtel: [facility] [address] FOLLOW UP 06/19/2018 Visit Diagnosis Plan: [...] : R61 06/09/2018 Appointment: Belia Reid WPtel: [address] [place], [place] [phone] US FOLLOW UP 06/09/2018 Care Plan: CHEST X-RAY 2VW FRONTAL&LATL LOINC : 69222-9 Pending 05/26/2018 Visit Diagnosis Plan: Supraventricular tachycardia [...] : R53.1 05/21/2018 Appointment: Belia Reid WPtel: [address] [place], [place] [phone] Hospital Follow Up 05/21/2018 Visit Diagnosis Plan: Cervical disc diso rder with radiculopathy, unspecified cervical region Discussion: Scheduled for surgery on 06/02 10/[address] Faulkner ICD-9 : 722.0 ICD-10 : M50.10 04/16/2018 Appointment: Belia Reid WPtel: [address] [place], [place] [phone] Hospital Follow Up 04/16/2018 Visit Diagnosis Plan: [...] ICD-10 : G43.919 04/01/2018 Appointment: Pattie Sotomayor [address] [place] [address] ACUTE ILLNESS 04/01/2018 Appointment: Belia Reid WPtel: [address] [place] [address] 03/17/2018 Visit Diagnosis Plan: Chronic obstructiv e [...] : E11.65 03/06/2018 Appointment: Belia Reid WPtel: [address] [place] [address] Hospital Follow Up 03/06/2018 Visit Diagnosis Plan: Cervicalgia Discussion: spoke wi th dr. reid about patient. increased gabapentin to bid and started on celebrex bid. tramadrol rx written out to take prn. keep scheduled appt next week for myelogram. ICD-9 : 723.1 ICD-10 : M54.2 02/05/2018 Appointment: Pattie Sotomayor [address] [place] [address] ACUTE ILLNESS 02/05/2018 Care Plan: X-RAY EXAM NECK SPINE 4/5VWS cervical LOINC : 40907-7 Pending 01/21/2018 Visit Diagnosis Plan: Candidiasis of [...] ICD-10 : M54.2 01/20/2018 Appointment: Pattie Sotomayor [address] [place] [address] ACUTE ILLNESS 01/20/2018 Visit Diagnosis Plan: Pain in thoracic spine Discussio n: Proceed with CT scan of thoracic spine Will likely need PT ICD-9 : 724.1 ICD-10 : M54.6 12/25/2017 Appointment: Belia Reid WPtel: [address] FOLLOW UP 12/25/2017 Care Plan: CT THORAX W/O DYE LOINC : 473 66-0 Pending 12/25/2017 Visit Diagnosis Plan: Pain in thoracic spine Discussio n: Stretches Alternated heat/ice Topical aspercreme with lidocaine Flexeril Recheck 1 week Flu and Pneumovax given ICD-9 : 724.1 ICD-10 : M54.6 12/17/2017 Appointment: Belia Reid WPtel: [address] ACUTE ILLNESS 12/17/2017 Patient Education: Patient [...] : J44.1 10/30/2017 Appointment: Belia Reid WPtel: [address] [place], [place] [phone] [place] FOLLOW UP 10/30/2017 Patient Education: Patient Medication Summary Completed 10/30/2017 Visit Diagnosis Plan: Chronic obstructiv e pulmonary disease with acute lower respiratory infection Discussion: Continue SVNs with albuterol q4hrs Add Trelagy 1 inhalation daily Finish steroids Increase water intake Follow Up: 1 weeks ICD-9 : 496 ICD-10 : J44.0 10/23/2017 Appointment: Belia Reid WPtel: [address] [place], [place] [phone] US WORK IN 10/23/2017 Patient Education: Patient Medication Summary Completed 10/23/2017 Appointment: Belia Reid WPtel: [address] [place], [place] [phone] NO SHOW 10/16/2017 Visit Diagnosis Plan: Confusional [...] : E11.65 09/17/2017 Appointment: Belia Reid WPtel: [address] [place], [place] [phone] Annual Well Visit 09/17/2017 Patient Education: Patient Medication Summary Completed 09/17/2017 Appointment: Belia Reid WPtel: [address] [place] [phone] [place] INJECTION 08/26/2017 Patient Education: Patient Medication Summary Completed 08/26/2017 Appointment: Belia Reid WPtel: [address] [place] [phone] US CANCELED 07/31/2017 Visit Diagnosis Plan: Encounter [...] : J20.9 07/19/2017 Appointment: Pattie Sotomayor [address] ACUTE ILLNESS 07/19/2017 Patient Education: Patient Medication Summary Completed 07/19/2017 Care Plan: MAMMOGRAM SCREENING LOINC : 2 6347-5 Pending 07/19/2017 Patient Education: Patient Medication Summary Completed 06/05/2017 Care Plan: LIPID PANEL LOINC : 32509-2 Pending 06/05/2017 Care Plan: A1C HPLC LOINC : 52536-6 Pending 06/05/2017 Visit Diagnosis Plan: Rash and [...] : R21 05/29/2017 Appointment: Pattie Sotomayor [address] [phone] FOLLOW UP 05/29/2017 Patient Education: Patient Medication Summary Completed 05/29/2017 Visit Diagnosis Plan: Tinea corporis Discussion: Diflu can and topical nystatin Follow Up: 2 weeks ICD-9 : 110.5 ICD-10 : B35.4 05/07/2017 Visit Diagnosis Plan: Diarrhea, unspecified Discussion : Diflucan Cholestyramine Recheck 2weeks ICD-9 : 787.91 ICD-10 : R19.7 05/07/2017 Appointment: Belia Reid WPtel: [address] [place], [place] [phone] US FOLLOW UP 05/07/2017 Patient Education: Patient Medication Summary Completed 05/07/2017 Appointment: Belia Reid WPtel: [address] [place], [place] [phone] US RESCHEDULED 04/30/2017 Visit Diagnosis Plan: Chronic obstructiv e pulmonary disease with (acute) exacerbation Discussion: Finish prednisone Continue S VNS with albuterol ICD-9 : 491.21 ICD-10 : J44.1 03/18/2017 Visit Diagnosis Plan: Stridor Discussion: Increase Ati van 0.5mg po to TID routinely for next week then can go back to prn ICD-9 : 786.1 ICD-10 : R06.1 03/18/2017 Appointment: Belia Reid WPtel: [address] [place], [place] [phone] ER Follow UP 03/18/2017 Patient Education: Patient [...] ICD-10 : E11.65 02/27/2017 Appointment: Belia Reidtel: [address] [place], [place] [phone] US FOLLOW UP 02/27/2017 Patient Education: Patient [...] Medication Summary Completed 01/23/2017 Appointment: Pattie Sotomayor [address] [place], [place] [phone] CANCELED 01/17/2017 Appointment: Pattie Sotomayor [address] [place], [place] [phone] Annual Well Visit 01/14/2017 Visit Diagnosis Plan: Type 2 diabetes mellitus with hy perglycemia Discussion: Check CMP, HbA1C Flu shot and Prevnar 13 given Follow Up: 3 months ICD-9 : 250.02 ICD-10 : E11.65 12/20/2016 Visit Diagnosis Plan: Localized edema Discussion: Low Na diet Compression socks/Elevate feet ICD-9 : 782.3 ICD-10 : R60.0 12/20/2016 Appointment: Belia Reid WPtel: [address] [place], [place] [phone] FOLLOW UP 12/20/2016 Patient Education: Patient Medication Summary Completed 12/20/2016 Patient Education: Patient Medication Summary Completed 10/10/2016 Visit Plan: Xrays of cervical, thoracic and lumbar spine at ERx for Mobic (stop NSAIDS except Tylenol) and Flexeril UA sent for C&S Using SVN Call in 2-3 days if pain not improved or any worsening 10/08/2016 Appointment: Celeste Ferreira WPtel: [facility]0 [id number] ACUTE ILLNESS 10/08/2016 Patient Education: Patient [...] : E11.65 09/19/2016 Appointment: Belia Reid WPtel: [address] [place], [place] [phone] 09/18 confirmed`sl FOLLOW UP 09/19/2016 Patient Education: [...] : R10.84 08/20/2016 Appointment: Belia Reid WPtel: [address] [place], [place] [phone] 08/16 confirmed~sl FOLLOW UP 08/20/2016 Patient Education: [...] : J44.9 06/19/2016 Appointment: Belia Reid WPtel: [address] [place], [place] [phone] 06/18 confirmed ~ Hospital Follow Up [...] : Z87.440 06/04/2016 Appointment: Belia Reid WPtel: [address] [place], [place] [phone] 06/01 confirmed~sl FOLLOW UP 06/04/2016 Patient Education: [...] R06.1 05/02/2016 Appointment: Belia Reid WPtel: [address] [place], [place] [phone] 05/01 confirmed [facility] Hospital Follow Up 05/02/2016 Patient Education: Patient [...] : N39.0 04/03/2016 Appointment: Belia Reid WPtel: [address] [place] [address] [facility] 04/03/2016 Patient Education: Patient Medication Summary Completed 04/03/2016 Visit Plan: Lungs are clear Her symptoms and exam are all upper airway restriction/constriction Can try supportive care Rx as above Follow up PRN 02/29/2016 Appointment: Lidia Hwang [address] [place] [address] ACUTE ILLNESS 02/29/2016 Patient Education: Patient Medication Summary Completed 02/29/2016 Visit Plan: Toradol/Phenergan today for Migraine Change to Clindamycin to cover lactobacillus for UTI Cover with flagyl due to hx of C. Diff 02/02/2016 Appointment: Belia Reid WPtel: [address] [place] [address] 01/31 confirmed` ACUTE ILLNESS 02/02/2016 Patient Education: Patient Medication Summary Completed 02/02/2016 Visit Plan: Increase neurontin to 300mg q AM and 600mg q PM Discussed neurology re-evaluation Flu shot given Need to check on Pneumonia shot Rx written out for albuterol 01/05/2016 Appointment: Belia Reid WPtel: [address] [place] [address] 01/03 confirmed ~sl Annual Well Visit 01/05/2016 Patient Education: Patient Medication Summary Completed 01/05/2016 Visit Plan: Cipro Culture urine hydrate Flexeril refilled Alternate heat and ice for back Increase gabapentin to 300mg po BID Notify if worsens 12/05/2015 Appointment: Belia Reid WPtel: [address] [place], [place] [phone] 11/30 confirmed~sl ACUTE ILLNESS 12/05/2015 Patient Education: Patient Medication Summary Completed 12/05/2015 Patient Education: Patient Medication Summary Completed 10/27/2015 Care Plan: [place] : 43[address]-6 Pending 10/27/2015 Care Plan: A1C HPLC LOINC : 51321-1 Pending 10/27/2015 Visit Plan: Lungs are CTA today and is f eeling improved overall Finish meds as ordered Continue inhalers and neb treatments Discussed migraine treatment options She does not feel she needs anything additional added today Refill of Januvia sent since no samples are available today 10/26/2015 Appointment: Lidia Hwang [address] [place] [address] Hospital Follow Up 10/26/2015 Appointment: Lidia Hwang [address] CANCELED 10/26/2015 Patient Education: Patient Medication Summary Completed 10/26/2015 Patient Education: Januvia - 18+ - KENNETH - No [place] Completed 10/26/2015 Visit Plan: Office dip still abnormal Cu lture pending Switch to cipro - stop macrobid Push fluids - avoid caffeine Will call with culture results when available Follow up if worsening 10/05/2015 Appointment: Lidia Hwang [address] ER Follow UP 10/05/2015 Patient Education: Patient Medication Summary Completed 10/05/2015 Visit Plan: Proceed with PT for document ation of ROM and strength of all extremities Proceed with Power Mobility Device Trial of neurontin 300mg q HS--lyrica helped but patient unable to afford Recheck 1month 09/15/2015 Appointment: Belia Reid WPtel: [address] [place], [place] [phone] 09/13 confirmed~sl SPECIAL 09/15/2015 Patient Education: Patient Medication Summary Completed 09/15/2015 Visit Plan: Fille out Loan Discharge Pap erwork for total and permanent disability 08/25/2015 Patient Education: Patient Medication Summary Completed 08/25/2015 Visit Plan: Discussed with Dr Anushka Haywood at [facility] Will get last date of carotid doppler from her principal consulting engineer and update if needed 08/24/2015 Appointment: Lidia Hwang [address] [place], [place] [id number] 08/22 confirmed~sl ACUTE ILLNESS 08/24/2015 Patient Education: Patient Medication Summary Completed 08/24/2015 Patient Education: Patient Medication Summary Completed 08/24/2015 Care Plan: US EXAM OF HEAD AND NECK carotid Ultrasound LOIN C : 82570-4 Pending 08/24/2015 Visit Plan: Long discussion about diet A ccuchecks daily Check HbA1C, CMP Change requip to mirapex 07/05/2015 Appointment: Belia Reid WPtel: [address] [place], [place] [phone] 07/03 confirmed ~sl FOLLOW UP 07/05/2015 Patient Education: Patient Medication Summary Completed 07/05/2015 Visit Plan: Add Breo ellipta 100 1 p BID Continue SVNs with duoneb QID 06/06/2015 Appointment: Belia Reid WPtel: [facility] [phone] Patient is calling for a ride, then retu rning our call.-sp 06/01 called and patient stated she will know saturday if she can get a ride~sl 06/05 [facility] Hospital Follow Up 06/06/2015 Patient [...] not improving 05/23/2015 Appointment: Huong Osborne WPtel: [address] [place], [place] [phone] ACUTE ILLNESS 05/23/2015 Appointment: Jaiden Lidia [address] [place] [address] ER Follow UP 05/23/2015 Patient Education: Patient Medication Summary Completed 05/23/2015 Visit Plan: Check pancreatic enzymes and US of pancreas as patient can't understand why she has diabetes since has no family history Discussed weight, diet, exercise all play an important role in diabetes and are risk factors as well Continue Januvia and accuchecks daily 05/05/2015 Appointment: Belia Reid WPtel: [address] [place] [address] US FOLLOW UP 05/05/2015 Patient Education: Patient Medication Summary Completed 05/05/2015 Care Plan: US EXAM ABDOM COMPLETE LOINC : 70323-4 Ordered 05/05/2015 Visit Plan: Start Januvia 100mg daily [place] with diflucan and culture urine Accuchecks daily alternating times Recheck 6weeks 03/30/2015 Appointment: Belia Reid WPtel: [address] [place], [place] [phone] 03/29 confirmed~lb FOLLOW UP 03/30/2015 Patient Education: Patient Medication Summary Completed 03/30/2015 Appointment: Belia Reid WPtel: [address] [place], [place] [phone] 03/01 needs reschedule due to payment and insurance ~sl FOLLOW UP 03/02/2015 Visit Plan: Patient was just in ER last night so has not filled scripts yet Start Carafate and Flagyl and Cipro Add Hyophen 1 po BID Recheck 1mo 02/03/2015 Appointment: Belia Reid WPtel: [address] [place], [place] [phone] US 02/02lm ~sl...02/03/15 appt confirmed cn ACUTE I LLNESS 02/03/2015 Patient Education: Patient Medication Summary Completed 02/03/2015 Visit Plan: Warm soaks to vaginal area K elex and Diflucan and observe Zofran to use prn 12/29/2014 Appointment: Belia Reid WPtel: [address] [place], [place] [phone] 12/28 Confirmed ~sl ACUTE ILLNESS 12/29/2014 Patient Education: Patient Medication Summary Completed 12/29/2014 Appointment: Huong Osborne WPtel: [address] [place] [address] FOLLOW UP 09/24/2014 Appointment: Belia Reid WPtel: [address] [place] [address] 09/15 confirmed -mf FOLLOW UP 09/16/2014 Visit Plan: Increase requip to 2mg po BI D Increase lyrica to 225mg total a day by adding an extra 75mg in AM Recheck in 2weeks Continue to patch left eye while sleeping 09/02/2014 Appointment: Belia Reid WPtel: [address] [place] [address] 09/01 appt confirmed cn Hospital Follow Up 09/02 Patient Education: Patient Medication Summary Completed 09/02/2014 Visit Plan: To [facility] for observat ion to R/O CVA 08/25/2014 Appointment: Huong Osborne WPtel: [address] [place], [place] [phone] ACUTE ILLNESS 08/25/2014 Patient Education: Patient Medication Summary Completed 08/25/2014 Referral: Aaron Jonas WPtel: [facility] [place] [phone] [id number] [place] location Initiated 04/26/2014 Referral: [facility]rinivasan [facility]el[id number] [facility] Referral Initiated 04/20/2014 Appointment: Belia Reid WPtel: [address] [place], [place] [phone] ER Follow UP 04/01/2014 Patient Education: Patient Medication Summary Completed 04/01/2014 Care Plan: MYELOGRAPHY NECK SPINE LOINC : 33536-0 Ordered 04/01/2014 Visit Plan: Continue Symbicort 160 at 2p BID Continue SVNs with duoneb at least QID Finish Levaquin Recheck 1mo on lyrica 03/16/2014 Appointment: Belia Reid WPtel: [address] [place], [place] [phone] 03/15 voicemail FOLLOW UP 03/16/2014 Patient Education: Patient Medication Summary Completed 03/16/2014 Visit Plan: Restart SVNs with duoneb QID Repeat prednisone Levaquin Continue symbicort Keep lyrica at same dose Recheck 1week 03/09/2014 Appointment: Belia Reid WPtel: [address] [place], [place] [phone] US FOLLOW UP 03/09/2014 Patient Education: Patient Medication Summary Completed 03/09/2014 Appointment: Belia Reid WPtel: [address] [place] [phone] 03/03 showed up 15 minutes late for appt -- put her on Huong's side for 10:45am FORGIVEN PER DR FOLLOW UP 03/03/2014 Appointment: Huong Osborne WPtel: [address] [place], [place] [phone] US FOLLOW UP 03/03/2014 Patient Education: Patient Medication Summary Completed 03/03/2014 Appointment: Huong Osborne WPtel: [address] [place], [place] [phone] ER Follow UP 03/01/2014 Patient Education: Patient Medication Summary Completed 03/01/2014 Visit Plan: Add carafate for this next m onth Increase lyrica to 150mg q HS 02/09/2014 Appointment: Belia Reid WPtel: [address] [place], [place] [phone] Hospital Follow Up 02/09/2014 Patient Education: Patient Medication Summary Completed 02/09/2014 Visit Plan: Increase omeprazole back to 40mg po BID Use requip in AM and add lyrica 75mg q HS Recheck 1mo 12/23/2013 Appointment: Belia Reid WPtel: [address] [place], [place] [phone] FOLLOW UP 12/23/2013 Patient Education: Patient Medication Summary Completed 12/23/2013 Patient Education: Patient Medication Summary Completed 12/04/2013 Appointment: Belia Reid WPtel: [address] [place], [place] [phone] UA 10/30/2013 Patient Education: Patient Medication Summary Completed 10/30/2013 Appointment: Belia Reid WPtel: [address] [place] [phone] UA 10/21/2013 Patient Education: Patient Medication Summary Completed 10/21/2013 Visit Plan: Cryotherapy as above TAC and hydroxyzine to use prn to itching spots and itching SKs Add Advair HFA 115/21 1 p BID 10/05/2013 Appointment: Belia Reid WPtel: [address] [place], [place] [phone] 10/01 pt called and confirmed ACUTE ILLNESS Patient Education: Patient Medication Summary Completed 10/05/2013 Appointment: Belia Reid WPtel: [address] [place], [place] [phone] will pay copay and part of past balance FOLLOW U P 08/04/2013 Patient Education: Patient Medication Summary Completed 08/04/2013 Appointment: Belia Reid WPtel: [address] [place], [place] [phone] US INJECTION 07/13/2013 Patient Education: Patient Medication Summary Completed 07/13/2013 Appointment: Huong Osborne WPtel: [address] [place], [place] [phone] ACUTE ILLNESS 07/03/2013 Patient Education: Patient Medication Summary Completed 07/03/2013 Visit Plan: Cipro and culture urine 05/27/2013 Appointment: IndiaAlecsa Dania WPtel: [address] [place], [place] [phone] 05/26 confirmed appt and notified that balance 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 is due at appt time FOLLOW UP 05/27/2013 Patient Education: Patient Medication Summary Completed 05/27/2013 Appointment: Belia Reid WPtel: [address] [place], [place] [phone] [place] UA 05/25/2013 Patient Education: Patient Medication Summary Completed 05/25/2013 Appointment: Belia Reid WPtel: [address] [place] [phone] US INJECTION 05/04/2013 Patient Education: Patient Medication Summary Completed 05/04/2013 Appointment: Belia Reid WPtel: [address] [place], [place] [phone] US INJECTION 04/17/2013 Patient Education: Patient Medication Summary Completed 04/17/2013 Appointment: Belia Reid WPtel: [address] [place] [phone] US INJECTION 04/15/2013 Appointment: Belia Reid WPtel: [address] [place] [phone] US 04/02 vm FOLLOW UP 04/06/2013 Patient Education: Patient Medication Summary Completed 04/06/2013 Visit Plan: Obtain lab results including UA from [facility] 11/10/2012 Appointment: Belia Reid WPtel: [phone] [address] [place], [place] [id number] [place] [facility] Follow UP 11/10/2012 Patient Education: Patient Medication Summary Completed 11/10/2012 Appointment: Belia Reid WPtel: [address] [place], [place] [phone] 10/30/12 patient canceled appt due to fin ances. Offered to work something out, patient declined-LB FOLLOW UP 11/05/2012 Visit Plan: Continue Bystolic at current dose Pt has fwup with Neurology on September 16 09/02/2012 Appointment: Belia Reid WPtel: [address] [place], [place] [phone] FOLLOW UP 09/02/2012 Patient Education: Patient Medication Summary Completed 09/02/2012 Visit Plan: Continue bystolic at 5mg chris ly Sees Neurology tomorrow Use oxygen at bedtime 08/04/2012 Appointment: Belia Reid WPtel: [address] [place], [place] [phone] FOLLOW UP 08/04/2012 Patient Education: Patient Medication Summary Completed 08/04/2012 Appointment: Belia Reid WPtel: [address] [place], [place] [phone] [place] [address] Hospital fwup for 07/21/12. merged appointments FOLLOW UP 07/24/2012 Visit Plan: Start Bystolic 5mg daily for tachycardia Fwup with neurology for further workup Overnight O2 sat 07/21/2012 Appointment: Belia Reid WPtel: [address] [place], [place] [phone] Hospital Follow Up 07/21/2012 Patient Education: Patient Medication Summary Completed 07/21/2012 Visit Plan: SVN with Albuterol QID Add A velox 400mg daily Notify if worsens or persists 07/02/2012 Appointment: Belia Reid WPtel: [address] [place] [address] ACUTE ILLNESS 07/02/2012 Patient Education: Patient Medication Summary Completed 07/02/2012 Appointment: Belia Reid WPtel: [address] [place], [place] [phone] INJECTION 06/25/2012 Patient Education: Patient Medication Summary Completed 06/25/2012 Appointment: Belia Reid WPtel: [address] [place], [place] [phone] FOLLOW UP 06/24/2012 Patient Education: Patient Medication Summary Completed 06/24/2012 Appointment: Belia Reid WPtel: [address] [place], [place] [phone] 05/19 left message FOLLOW UP 05/20/2012 Patient [...] po TID 05/08/2012 Appointment: Belia Reid WPtel: [address] [place], [place] [phone] ACUTE ILLNESS 05/08/2012 Patient Education: Patient Medication Summary Completed 05/08/2012 Visit Plan: Continue current meds Contin ue lower dose on pain meds and Diazepam Still waiting on paperwork for botox for Migraines Will restart Neurontin at 600mg po q HS Pt going to stop Depakote due to can't afford 04/22/2012 Appointment: Belia Reid WPtel: [address] [place], [place] [phone] 04/21 Hospital Follow Up 04/22/2012 Patient Education: Patient Medication Summary Completed 04/22/2012 Visit Plan: Injection to shoulder as abo ve Continue current meds Has appointment with neurology on HAs in 02/13/2012 Appointment: Belia Reid WPtel: [address] [place], [place] [phone] [facility] will [facility] it in next week. Kianna iqbal'ed this. - [place] FOLLOW UP 02/13/2012 Patient Education: Patient Medication Summary Completed 02/13/2012 Visit Plan: Proceed with headache specia list Change nexium to Protonix Phenergan to use prn Sumatriptan to use prn Pt still on Inderal 01/28/2012 Appointment: Belia Reid WPtel: [address] [place] [address] ER Follow UP 01/28/2012 Patient Education: Patient [...] for sleep 12/26/2011 Appointment: Belia Reid WPtel: [address] [place] [address] 12/24- appt. confirmed FOLLOW UP 2 Patient Education: Patient Medication Summary Completed 12/26/2011 Appointment: Belia Reid WPtel: [address] [place] [address] [place] FOLLOW UP 11/14/2011 Patient Education: Patient Medication Summary Completed 11/14/2011 Appointment: Belia Reid WPtel: [address] [place] [address] [place] FOLLOW UP 09/12/2011 Patient Education: Patient Medication Summary Completed 09/12/2011 Visit Plan: Supportive care Decrease Liseth catalino to 50mg q HS Decrease AM dose of Valium to 5mg q HS Use Endocet sparingly 08/15/2011 Appointment: Belia Reid WPtel: [address] [place] [address] ER Follow UP 08/15/2011 Patient Education: Patient Medication Summary Completed 08/15/2011 Appointment: Belia Reid WPtel: [address] [place] [address] [place] Spoke directly to patient yesterday and confirmed the appoin tment. cn ACUTE ILLNESS 08/09/2011 Patient Education: Patient Medication Summary Completed 08/09/2011 Appointment: Belia Reid WPtel: [address] [place] [address] Follow Up 07/03/2011 Patient Education: Patient Medication Summary Completed 07/03/2011 Appointment: Belia Reid WPtel: [address] [place] [address] FOLLOW UP 06/04/2011 Patient Education: Patient Medication Summary Completed 06/04/2011 Visit Plan: Pt. wants "allergy shot" but in fact wants steroid shot. Will take a break from "generic Zyrtec they are getting from [facility]" and try Singulair for 2 weeks. 05/03/2011 Appointment: Iraida Jones WPtel: [address] [place] [address] ACUTE ILLNESS 05/03/2011 Patient Education: Patient Medication Summary Completed 05/03/2011 Visit Plan: Neurontin 400mg q HS for 1we ek then 800mg q HS Decrease requip to 1mg q HS for 2wks then stop Fwup 2mos 04/05/2011 Appointment: Belia Reid WPtel: [address] [place] [address] FOLLOW UP 04/05/2011 Patient Education: Patient Medication Summary Completed 04/05/2011 Visit Plan: Trial of neurontin in 2wks C ontinue current meds for stomach Pt has procedure with Dr. Ortiz next week for stone removal 03/08/2011 Appointment: Belia Reid WPtel: [address] [place] [address] Hospital Follow Up 03/08/2011 Patient Education: Patient Medication Summary Completed 03/08/2011 Appointment: Belia Reid WPtel: [address] [place] [address] FOLLOW UP 02/19/2011 Visit Plan: reports increased [...] with Flagyl 01/24/2011 Appointment: Iraida Jones WPtel: [address] [place], [place] [phone] ACUTE ILLNESS 01/24/2011 Patient Education: Patient Medication Summary Completed 01/24/2011 Appointment: Belia Reid WPtel: [address] [place] [address] [place] FOLLOW UP 01/02/2011 Patient Education: Patient Medication Summary Completed 01/02/2011 Appointment: Belia Reid WPtel: [address] [place], [place] [phone] FOLLOW UP 12/12/2010 Appointment: Belia Reid WPtel: [address] [place], [place] [id number] ACUTE ILLNESS 12/07/2010 Patient Education: Patient Medication Summary Completed 12/07/2010 Visit Plan: Increase Buspar to 10mg po B ID 11/16/2010 Appointment: Belia Reid WPtel: [address] [place], [place] [phone] FOLLOW UP 11/16/2010 Patient Education: Patient Medication Summary Completed 11/16/2010 Appointment: Iraida Jones WPtel: [address] [place], [place] [phone] ER Follow UP 11/02/2010 Patient Education: Patient Medication Summary Completed 11/02/2010 Visit Plan: Depo-Medrol/Kenalog given fo r allergies Add BuSpar for anxiety Oxycodone one p.o. q.i.d. for number 120 refilled 10/18/2010 Appointment: Belia Reid WPtel: [address] [place], [place] [phone] [place] FOLLOW UP 10/18/2010 Patient Education: Patient Medication Summary Completed 10/18/2010 Visit Plan: Continue current meds Discus sed epidurals for back vs PT--will proceed with epidurals to thoracolumbar region to see if helps with pain 09/19/2010 Appointment: Belia Reidtel: [address] [place], [place] [phone] FOLLOW UP 09/19/2010 Patient Education: Patient Medication Summary Completed 09/19/2010 Visit Plan: DC MS contin Check CT scan t horacic spine Fwup pending above results 09/06/2010 Appointment: Belia Reid WPtel: [address] [place], [place] [phone] FOLLOW UP 09/06/2010 Patient Education: Patient Medication Summary Completed 09/06/2010 Visit Plan: Continue current meds Restar t MS contin 15mg po BID and use oxycodone prn Use daily senokot-s 2 po BID 08/10/2010 Appointment: Belia Reid WPtel: [address] [place], [place] [phone] FOLLOW UP 08/10/2010 Patient Education: Patient Medication Summary Completed 08/10/2010 Visit Plan: Depomedrol/Kenalog given Pt sees ENT later this month Cont current meds Mammo scheduled 05/11/2010 Appointment: Belia Reid WPtel: [address] [place], [place] [phone] FOLLOW UP 05/11/2010 Patient Education: Patient Medication Summary Completed 05/11/2010 Appointment: Belia Reid WPtel: [address] [place] [phone] UA 05/04/2010 Patient Education: Patient Medication Summary Completed 05/04/2010 Visit Plan: Pt sent to lab for UA 04/28/2010 Appointment: Belia Reid WPtel: [address] [place], [place] [phone] UA 04/28/2010 Patient Education: Patient Medication Summary Completed 04/28/2010 Visit Plan: Check CT angiogram of chest Restart Advair Use proair prn Cont current meds Fwup with Card as schedulec 04/06/2010 Appointment: Belia Reidtel: [address] [place] [phone] Hospital Follow Up 04/06/2010 Patient Education: Patient Medication Summary Completed 04/06/2010 Visit Plan: Paperwork filled out for pow erchair Depomedrol/kenalog given Pt sees ENT in 2wks to assess nasal obstruction problems 02/09/2010 Appointment: Belia Reidtel: [address] [place] [address] ESTABLISHED PATIENT 02/09/2010 Patient Education: Patient Medication Summary Completed 02/09/2010 Visit Plan: Change Elavil to Trazadone 1 50mg q HS Diflucan and nystatin for tinea cruris 01/05/2010 Appointment: Belia Reidtel: [address] [place] [address] FOLLOW UP 01/05/2010 Patient Education: Patient Medication Summary Completed 01/05/2010 Appointment: Belia Reidtel: [address] [place] [address] FOLLOW UP 12/07/2009 Patient Education: Patient Medication Summary Completed 12/07/2009 Appointment: Belia Reidtel: [address] [place] [address] FOLLOW UP 11/22/2009 Visit Plan: Cont current meds and await MRI results from Dr. Meadows's office and his final recommendations Will need to follow-up at later date on deviated septum 11/08/2009 Appointment: Belia Reid WPtel: [address] [place], [place] [phone] FOLLOW UP 11/08/2009 Patient Education: Patient Medication Summary Completed 11/08/2009 Visit Plan: Cont PT/OT See Neurosurgery Cont Tortoise shell brace 10/24/2009 Appointment: Belia Reid WPtel: [address] [place], [place] [id number] FOLLOW UP 10/24/2009 Patient Education: Patient Medication Summary Completed 10/24/2009 Appointment: Belia Reid WPtel: [address] [place], [place] [id number] Hospital Follow Up 10/17/2009 Appointment: Belia Reid WPtel: [address] [place], [place] [id number] ACUTE ILLNESS 07/25/2009 Patient Education: Patient Medication Summary Completed 07/25/2009 Appointment: Belia Reid WPtel: [address] [place] [address] FOLLOW UP 05/26/2009 Patient Education: Patient Medication Summary Completed 05/26/2009 Referral: Chino Balderas WPtel: [facility] Referral Initiated Referral: Merry Vale WPtel: [facility] [id number] [place] Dr Vale will review referral and book appointment Completed Referral: Francisco Javier Yoder WPtel: [address] [id number] [place] Patient needs EGD insurance will not inc rease a medication unless this procedure results show a need Completed Referral: Francisco Javier Yoder WPtel: [address] [id number] [place] Referral Historical Reference Referral: Francisco Javier Yoder WPtel: [address] [place] [address] [place] Referral Initiated Instructions Comment . Xrays [...] last date of carotid doppler from her principal consulting engineer and update if needed . Long [...]
--- OUTSIDE RECORDS SUMMARY | 2019-08-27 08:15 | XMS REPORT | CCD ---
Author Author Diana Reid D.O. Organization [facility] Address [address] [place] [address] Phone Care Team Providers Care Flight Information Expediter Name Role Phone [facility]ia [facility] D.O., PP Unavailable CCM Unavailable Summary Purpose Interface Exchange Insurance Providers Payer name Policy type / Coverage type Covered democrat ID Effective Begin Date Effective End Date [employer] MEDICARE Medicare Part B [id number] 2019 Unknown Family History Family History data not found Social History Social History Element Codes Description Effective Dates Tobacco history SNOMED CT: 282763739 Nonsmoker 09/13/2010 Allergies, Adverse Reactions, Alerts Substance Reaction Codes Entered Date Inactivated Date Status Eggs reaction 34351967 09/15/2015 No Inactive Date Active _ Unknown [...] mg capsule,extended release 24 hr RxNorm: 8 15767 1 Capsule(s) Oral QD 07/15/2019 01/10/2020 Active metoprolol tartrate 50 mg tablet RxNorm: 499374 1 Table t(s) Oral two times a day 07/06/2019 No Stop Date Active Novolin N NPH U-100 Insulin isophane 100 unit/mL subcu taneous susp RxNorm: 083448 25 Unit(s) Subcutaneous two times a day 07/06/2019 07/06/2019 I nactive Colestid 1 gram tablet RxNorm: 8812573 1 Tablet(s) Oral two times a day for diarrhea 07/06/2019 09/04/2019 Active Ativan 0.5 mg tablet RxNorm: 473322 1 Tablet(s) Oral th ree times a day for anxiety/shortness of air/stridor 06/25/2019 07/25/2019 Active pramipexole 1 mg tablet RxNorm: 214036 1 Tablet(s) Oral QPM FOR RESTLESS LEGS (REPLACES REQUIP) 06/25/2019 06/19/2020 Active hydroxyzine HCl 25 mg tablet RxNorm: 947400 1 Tablet(s) Oral QPM for itching/aniety 06/25/2019 09/23/2019 Active Levaquin 500 mg tablet RxNorm: 791038 1 Tablet(s) Oral QD 06/16/2019 06/23/2019 Inactive Flagyl 500 mg tablet RxNorm: 236612 1 Tablet(s) Oral three time s a day 06/16/2019 06/23/2019 Inactive Vancocin 125 mg capsule RxNorm: 799094 1 Capsule(s) Oral four t imes a day 06/08/2019 06/18/2019 Inactive omeprazole 40 mg capsule,delayed release RxNorm: 277796 1 Capsule(s) Oral two times a day 05/26/2019 11/21/2019 Active Flagyl 500 mg tablet RxNorm: 655847 1 Tablet(s) Oral three time s a day 05/26/2019 06/05/2019 Inactive diltiazem CD 240 mg capsule,extended release 24 hr RxNorm: 8 46906 1 Capsule(s) Oral QD 05/26/2019 07/14/2019 Inactive Cipro 250 mg tablet RxNorm: 670053 1 Tablet(s) Oral two times a day 05/26/2019 06/02/2019 Inactive hydroxyzine HCl 25 mg tablet RxNorm: 589425 1 Tablet(s) Oral QPM for itching/aniety 05/21/2019 06/24/2019 Inactive metoprolol tartrate 25 mg tablet RxNorm: 304317 1 Table t(s) Oral two times a day 05/21/2019 07/05/2019 Inactive hydroxyzine HCl 25 mg tablet RxNorm: 590573 1 Tablet(s) Oral QPM for itching/aniety 05/13/2019 05/20/2019 Inactive Singulair 10 mg tablet RxNorm: 364303 1 Tablet(s) Oral QPM 05/06/19 20 05/12/2019 Inactive gabapentin 600 mg tablet RxNorm: 143957 1 Tablet(s) Oral QD 020 06/05/2019 Inactive Valium 5 mg tablet RxNorm: 775859 1 Tablet(s) Oral QPM for stri joao/muscle spasm 04/29/2019 06/24/2019 Inactive baclofen 10 mg tablet RxNorm: 082006 1 Tablet(s) Oral QPM for s pasm/neck pain 04/24/2019 05/23/2019 Inactive baclofen 10 mg tablet RxNorm: 651202 1 Tablet(s) Oral QPM for s pasm/neck pain 04/24/2019 04/23/2019 Inactive Novolin N NPH U-100 Insulin isophane 100 unit/mL subcu taneous susp RxNorm: 445800 23 Unit(s) Subcutaneous two times a day 04/20/2019 07/05/2019 I nactive cyclobenzaprine 5 mg tablet RxNorm: 029094 1 Tablet(s) Oral three times a day as needed 04/16/2019 04/23/2019 Inactive hydroxyzine HCl 25 mg tablet RxNorm: 942597 1 Tablet(s) Oral three times a day for itching/aniety 04/08/2019 05/12/2019 Inactive gabapentin 600 mg tablet RxNorm: 650084 1 Tablet(s) Oral two ti mes a day 04/08/2019 05/05/2019 Inactive gabapentin 600 mg tablet RxNorm: 738672 1 Tablet(s) Oral two ti mes a day 04/08/2019 04/07/2019 Inactive Novolin N NPH U-100 Insulin isophane 100 unit/mL subcu taneous susp RxNorm: 620955 10 Unit(s) Subcutaneous two times a day 03/03/2019 04/19/2019 I nactive gabapentin 300 mg capsule RxNorm: 233717 1 Capsule(s) O ral every night at bedtime for neuropathy 02/26/2019 04/07/2019 Inactive gabapentin 300 mg capsule RxNorm: 912661 1 Capsule(s) O ral every night at bedtime for neuropathy 02/20/2019 02/25/2019 Inactive buspirone 5 mg tablet RxNorm: 044117 TAKE 1 TABLET THREE TIMES MILDRED Y 02/12/2019 05/12/2019 Inactive pramipexole 1 mg tablet RxNorm: 578954 1 Tablet(s) Oral QPM FOR RESTLESS LEGS (REPLACES REQUIP) 02/12/2019 06/24/2019 Inactive Lexapro 10 mg tablet RxNorm: 289328 TAKE 1 TABLET EVERY DAY FOR MOO D 01/31/2019 No Stop Date Active Ativan 0.5 mg tablet RxNorm: 286393 TAKE 1 TABLET BY [facility] THREE TIMES DAILY NEEDED FOR ANXIETY 01/26/2019 04/28/2019 Inactive Ativan 0.5 mg tablet RxNorm: 791821 TAKE 1 TABLET BY [facility] THREE TIMES DAILY NEEDED FOR ANXIETY 01/05/2019 01/05/2019 Inactive Levaquin 500 mg tablet RxNorm: 125508 1 Tablet(s) Oral QD 12/25/2018 12/24/2018 Inactive Levaquin 500 mg tablet RxNorm: 003323 1 Tablet(s) Oral QD 12/25/2018 01/04/2019 Inactive baclofen 10 mg tablet RxNorm: 993732 1 Tablet(s) Oral three maico es a day 11/20/2018 01/19/2019 Inactive Ativan 0.5 mg tablet RxNorm: 585338 TAKE 1 TABLET BY [facility] THREE TIMES DAILY NEEDED FOR ANXIETY 11/20/2018 01/04/2019 Inactive gabapentin 300 mg capsule RxNorm: 797270 1 Capsule(s) O ral every night at bedtime for neuropathy 11/20/2018 12/20/2018 Inactive Lexapro 10 mg tablet RxNorm: 653059 1 Tablet(s) PO QD for mood 07/201801/30/2019 Inactive Zithromax Z-Lj 250 mg tablet RxNorm: 272321 Tablet(s) PO take as directed 11/04/2018 11/19/2018 Inactive Insulin Syringe 1 mL 29 gauge x 1/2" RxNorm: 2 s yringes daily with insulin Dx: E11.65 10/08/2018 No Stop Date Active gabapentin 300 mg capsule RxNorm: 927498 1 Capsule(s) PO QHS fo r neuropathy 09/18/2018 10/17/2018 Inactive cyclobenzaprine 5 mg tablet RxNorm: 074919 1 Tablet(s) PO TID a s needed 09/09/2018 09/08/2018 Inactive cyclobenzaprine 5 mg tablet RxNorm: 580555 1 Tablet(s) PO TID a s needed 09/09/2018 10/08/2018 Inactive prednisone 20 mg tablet RxNorm: 710435 1 Tablet(s) PO QD 09/08/2018 0 09/12/2018 Inactive Lantus Solostar U-100 Insulin 100 unit/mL (3 mL) subcu taneous pen RxNorm: 258962 55 Unit(s) SQ QAM 08/28/2018 11/03/2018 Inactive hydroxyzine HCl 25 mg tablet RxNorm: 607290 1 Tablet(s) PO QHS for itching 08/20/2018 05/12/2019 Inactive Lexapro 10 mg tablet RxNorm: 627213 1 Tablet(s) PO QD for mood 08/0210/18/2018 Inactive sumatriptan 100 mg tablet RxNorm: 851259 1 Tablet(s) PO at headache onset. May repeat 1 in two hours if headache remains. Max of 2 per 24 hours 04/02/2018 05/20/2018 Inactive Diflucan 150 mg tablet RxNorm: 245886 1 Tablet(s) PO QD 03/18/2018 Inactive Diflucan 150 mg tablet RxNorm: 552760 1 Tablet(s) PO QD 03/18/2018 Inactive Flagyl 500 mg tablet RxNorm: 776639 1 Tablet(s) PO TID 03/17/2018 Inactive Levaquin 500 mg tablet RxNorm: 572674 1 Tablet(s) PO QD 03/17/2018 Inactive Levaquin 500 mg tablet RxNorm: 367499 1 Tablet(s) PO QD 03/17/2018 Inactive Flagyl 500 mg tablet RxNorm: 632285 1 Tablet(s) PO TID 03/17/2018 Inactive ketoconazole 200 mg tablet RxNorm: 481290 1 Tablet(s) PO QD 019 03/19/2018 Inactive Celebrex 200 mg capsule RxNorm: 074759 1 Capsule(s) PO BID 02/06/20 18 05/20/2018 Inactive tramadol 50 mg tablet RxNorm: 544638 1 Tablet(s) PO TID as needed 1 04/08/2017 05/20/2018 Inactive gabapentin 300 mg capsule RxNorm: 647160 1 Capsule(s) PO BID 201705/20/2018 Inactive Diflucan 150 mg tablet RxNorm: 464715 1 Tablet(s) PO QD 01/20/2018 Inactive pramipexole 1 mg tablet RxNorm: 756190 1 Tablet(s) PO Q PM FOR RESTLESS LEGS (REPLACES REQUIP) 01/08/2018 02/11/2019 Inactive cyclobenzaprine 10 mg tablet RxNorm: 457202 1 Tablet(s) PO TID as needed for muscle spasm 12/17/2017 05/20/2018 Inactive pramipexole 1 mg tablet RxNorm: 251550 TAKE 1 TABLET BY MOUTH ONCE DAILY IN THE EVENING FOR RESTLESS LEGS (REPLACES REQUIP) 12/04/2017 01/05/2018 Inac tive Amaryl 4 mg tablet RxNorm: 952860 1 Tablet(s) PO BID replaces 2mg 0 11/05/2017 12/16/2017 Inactive Singulair 10 mg tablet RxNorm: 772066 1 Tablet(s) PO QHS for al lergies/lungs 10/30/2017 12/16/2017 Inactive Diflucan 100 mg tablet RxNorm: 299747 1 Tablet(s) PO QD 10/23/2017 Inactive Ativan 0.5 mg tablet RxNorm: 943074 TAKE 1 TABLET BY MOUTH THRE E TIMES DAILY 08/30/2017 11/20/2018 Inactive buspirone 5 mg tablet RxNorm: 334947 1 Tablet(s) PO TID 07/11/2017 Inactive propranolol 60 mg tablet RxNorm: 686764 1 Tablet(s) PO BID repl aces 40mg dose 06/26/2017 12/16/2017 Inactive Amaryl 4 mg tablet RxNorm: 615360 1 Tablet(s) PO BID replaces 2mg 0 06/12/2017 11/05/2017 Inactive omeprazole 40 mg capsule,delayed release RxNorm: 274798 1 Capsule(s) PO BID TAKE ONE CAPSULE BY MOUTH TWICE DAILY 05/30/2017 11/25/2017 Inactive pramipexole 1 mg tablet RxNorm: 986594 1 Tablet(s) PO Q PM for restless legs--replaces requip 05/30/2017 11/25/2017 Inactive amitriptyline 50 mg tablet RxNorm: 548581 1 Tablet(s) PO QHS 201709/16/2017 Inactive Diflucan 100 mg tablet RxNorm: 426872 1 Tablet(s) PO BID 05/07/2017 0 05/20/2017 Inactive nystatin (bulk) 100 million unit powder RxNorm: Application TO P BID 05/07/2017 05/20/2018 Inactive cholestyramine (with sugar) 4 gram oral powder RxNorm: 278037 1 Unit Dose PO QD 05/07/2017 01/20/2018 Inactive Ativan 0.5 mg tablet RxNorm: 401978 TAKE ONE TABLET BY MOUTH TH REE TIMES DAILY 05/01/2017 09/02/2017 Inactive Trulicity 1.5 mg/0.5 mL subcutaneous pen injector RxNorm: 15 22313 1 Unit Dose SQ WEEKLY 02/22/2017 03/23/2017 Inactive doxycycline hyclate 100 mg capsule RxNorm: 6332081 1 Capsule(s) PO BID 01/23/2017 02/05/2017 Inactive Amaryl 4 mg tablet RxNorm: 507562 1 Tablet(s) PO BID replaces 2mg 1 03/25/2016 05/22/2017 Inactive magnesium oxide 400 mg capsule RxNorm: 866771 1 Capsule(s) PO QD 07/18/2017 Inactive Ativan 0.5 mg tablet RxNorm: 261553 TAKE ONE TABLET BY MOUTH TH REE TIMES DAILY 01/17/2017 05/01/2017 Inactive Amaryl 2 mg tablet RxNorm: 895175 1 Tablet(s) PO BID 12/27/201601/22 Inactive Amaryl 2 mg tablet RxNorm: 420035 1 Tablet(s) PO BID 12/26/201612/26 Inactive Ativan 0.5 mg tablet RxNorm: 428306 TAKE ONE TABLET BY MOUTH TH REE TIMES DAILY 12/05/2016 01/18/2017 Inactive pramipexole 1 mg tablet RxNorm: 432450 1 Tablet(s) PO Q PM for restless legs--replaces requip 11/26/2016 05/30/2017 Inactive Mobic 15 mg tablet RxNorm: 427027 1 Tablet(s) PO QD 10/08/20162016 Inactive cyclobenzaprine 5 mg tablet RxNorm: 262096 1/2- 1 Tablet(s) PO TID 10/08/2016 10/17/2016 Inactive Ativan 0.5 mg tablet RxNorm: 175091 1 Tablet(s) PO TID 09/20/201607/2016 Inactive amitriptyline 50 mg tablet RxNorm: 171407 1 Tablet(s) PO QHS 201605/30/2017 Inactive propranolol 60 mg tablet RxNorm: 396646 1 Tablet(s) PO BID repl aces 40mg dose 09/19/2016 06/26/2017 Inactive Ativan 0.5 mg tablet RxNorm: 836384 1 Tablet(s) PO TID 08/20/2016 Inactive omeprazole 40 mg capsule,delayed release RxNorm: 963233 1 Capsule(s) PO BID TAKE ONE CAPSULE BY MOUTH TWICE DAILY 08/20/2016 05/30/2017 Inactive amitriptyline 50 mg tablet RxNorm: 625657 1 Tablet(s) PO QHS 201609/18/2016 Inactive pramipexole 1 mg tablet RxNorm: 684468 1 Tablet(s) PO Q PM for restless legs--replaces requip 07/23/2016 11/25/2016 Inactive Amaryl 2 mg tablet RxNorm: 135035 1 Tablet(s) PO BID 07/23/201612/27 Inactive propranolol 40 mg tablet RxNorm: 233773 1 Tablet(s) PO BID 07/13/1909/18/2016 Inactive Ativan 0.5 mg tablet RxNorm: 569826 1 Tablet(s) PO QID 06/19/2016 Inactive Amaryl 2 mg tablet RxNorm: 089287 1 Tablet(s) PO BID 06/19/201607/22 Inactive Ativan 0.5 mg tablet RxNorm: 417042 1 Tablet(s) PO QID 06/19/2016 Inactive buspirone 5 mg tablet RxNorm: 440632 1 Tablet(s) PO TID 06/19/2016 Inactive Ativan 0.5 mg tablet RxNorm: 950794 1 Tablet(s) PO BID 05/24/2016 Inactive buspirone 5 mg tablet RxNorm: 787534 1 Tablet(s) PO TID 05/23/2016 Inactive Macrobid 100 mg capsule RxNorm: 893610 1 Capsule(s) PO QOD 05/03/19 17 10/07/2016 Inactive pramipexole 1 mg tablet RxNorm: 058283 Tablet(s) 1 Tabl et(s) PO QPM for restless legs--replaces requip 04/26/2016 06/24/2016 Inactive propranolol 40 mg tablet RxNorm: 257109 TAKE ONE TABLET BY MOUT H TWICE DAILY 04/26/2016 06/24/2016 Inactive Detrol LA 4 mg capsule,extended release RxNorm: 272098 1 Capsul e(s) PO QHS 04/03/2016 05/02/2016 Inactive prednisone 20 mg tablet RxNorm: 132027 1 Tablet(s) PO QD 02/29/2016 0 03/04/2016 Inactive Actos 30 mg tablet RxNorm: 128311 TAKE ONE TABLET BY MOUTH ONCE DAILY 02/27/2016 12/19/2016 Inactive clindamycin 300 mg capsule RxNorm: 481847 1 Capsule(s) PO TID 02/0102/08/2016 Inactive Flagyl 500 mg tablet RxNorm: 788674 1 Tablet(s) PO BID 02/02/201609/2015 Inactive omeprazole 40 mg capsule,delayed release RxNorm: 286037 TAKE ONE CAPSULE BY MOUTH TWICE DAILY 01/15/2016 07/12/2016 Inactive gabapentin 300 mg capsule RxNorm: 855314 1 Capsule(s) PO QAM an d 2 po q HS 01/05/2016 06/18/2016 Inactive gabapentin 300 mg capsule RxNorm: 255240 1 Capsule(s) P O BID 1 Capsule(s) PO QHS 12/05/2015 01/04/2016 Inactive cyclobenzaprine 10 mg tablet RxNorm: 340196 1 Tablet(s) PO TID for spasm as needed for muscle spasm 12/05/2015 06/18/2016 Inactive ciprofloxacin 250 mg tablet RxNorm: 282833 1 Tablet(s) PO BID 12/0412/14/2015 Inactive pramipexole 1 mg tablet RxNorm: 760356 Tablet(s) 1 Tabl et(s) PO QPM for restless legs--replaces requip 11/07/2015 11/26/2016 Inactive Januvia 100 mg tablet RxNorm: 814062 1 Tablet(s) PO QD 10/26/201504/2015 Inactive propranolol 40 mg tablet RxNorm: 698026 TAKE ONE TABLET BY MOUT H TWICE DAILY 10/25/2015 04/21/2016 Inactive gabapentin 300 mg capsule RxNorm: 738258 1 Capsule(s) PO QHS 201512/04/2015 Inactive Cipro 500 mg tablet RxNorm: 310238 1 Tablet(s) PO BID 10/05/201511/2015 Inactive pramipexole 1 mg tablet RxNorm: 561104 Tablet(s) 1 Tabl et(s) PO QPM for restless legs--replaces requip 10/04/2015 11/02/2015 Inactive propranolol 40 mg tablet RxNorm: 256907 TAKE ONE TABLET BY MOUT H TWICE DAILY 09/26/2015 10/24/2015 Inactive Amaryl 2 mg tablet RxNorm: 085008 1 Tablet(s) PO QD 09/15/20152016 Inactive gabapentin 300 mg capsule RxNorm: 653979 1 Capsule(s) PO QHS 201510/14/2015 Inactive buspirone 5 mg tablet RxNorm: 093633 1 Tablet(s) PO TID 09/15/2015 Inactive pramipexole 1 mg tablet RxNorm: 126859 Tablet(s) 1 Tabl et(s) PO QPM for restless legs--replaces requip 09/08/2015 10/03/2015 Inactive pramipexole 1 mg tablet RxNorm: 462569 1 Tablet(s) PO Q PM for restless legs--replaces requip 08/08/2015 09/08/2015 Inactive Amaryl 2 mg tablet RxNorm: 259238 1 Tablet(s) PO QD 07/07/20152015 Inactive pramipexole 1 mg tablet RxNorm: 444018 1 Tablet(s) PO Q PM for restless legs--replaces requip 07/05/2015 08/03/2015 Inactive ropinirole 2 mg tablet RxNorm: 038419 TAKE ONE TABLET BY MOUTH TWICE DAILY 05/09/2015 09/14/2015 Inactive Diflucan 100 mg tablet RxNorm: 705056 1 Tablet(s) PO QD 03/30/2015 Inactive propranolol 40 mg tablet RxNorm: 374739 1 Tablet(s) PO BID 02/24/20 15 08/21/2015 Inactive [SAVINGS FOR UNINSURED PATIE NTS -- BIN:563476, PCN: ASPROD1, Group: AME08, ID# [id number], Process claim through FRS, for questions: . THIS IS NOT INSURANCE.] Flagyl 500 mg tablet RxNorm: 221822 1 Tablet(s) PO BID 02/03/201502/2015 Inactive Cipro 500 mg tablet RxNorm: 404185 1 Tablet(s) PO BID 02/03/201502/01 Inactive Carafate 1 gram tablet RxNorm: 022133 1 Tablet(s) PO QID make i nto slurry 02/03/2015 09/14/2015 Inactive ondansetron HCl 4 mg tablet RxNorm: 414052 1 Tablet(s) PO Q4H as needed for nausea 12/29/2014 01/04/2016 Inactive Diflucan 100 mg tablet RxNorm: 187147 1 Tablet(s) PO QD 12/29/2014 Inactive Keflex 500 mg capsule RxNorm: 694682 1 Capsule(s) PO TID 12/29/2014 1 03/09/2014 Inactive omeprazole 40 mg capsule,delayed release RxNorm: 058360 1 Capsu le(s) PO BID 12/27/2014 12/21/2015 Inactive [SAVINGS FOR UNINSUR ED PATIENTS -- BIN:169839, PCN: ASPROD1, Group: AME08, ID# [id number], Process claim through FRS, for questions: . THIS IS NOT INSURANCE.] ropinirole 2 mg tablet RxNorm: 931728 1 Tablet(s) PO BID 09/29/2014 0 03/27/2015 Inactive [SAVINGS FOR UNINSURED PATIENTS -- BIN:0 72323, PCN: ASPROD1, Group: AME08, ID# [id number], Process claim through MedImpact, for questions: . THIS IS NOT INSURANCE.] buspirone 5 mg tablet RxNorm: 945623 1 Tablet(s) PO TID 09/17/2014 Inactive ropinirole 2 mg tablet RxNorm: 968587 1 Tablet(s) PO BID 09/02/2014 0 09/28/2014 Inactive [SAVINGS FOR UNINSURED PATIENTS -- BIN:0 98481, PCN: ASPROD1, Group: AME08, ID# [id number], Process claim through MedImpact, for questions: . THIS IS NOT INSURANCE.] Zyrtec 10 mg tablet RxNorm: 3994425 1 Tablet(s) PO QD 09/02/201412/02 Inactive propranolol 40 mg tablet RxNorm: 744025 1 Tablet(s) PO BID 07/21/19 15 02/23/2015 Inactive [SAVINGS FOR UNINSURED PATIE NTS -- BIN:007844, PCN: ASPROD1, Group: AME08, ID# [id number], Process claim through MedImpact, for questions: . THIS IS NOT INSURANCE.] ropinirole 2 mg tablet RxNorm: 635912 1 Tablet(s) PO QHS 05/14/2014 0 09/01/2014 Inactive [SAVINGS FOR UNINSURED PATIENTS -- BIN:0 71608, PCN: ASPROD1, Group: AME08, ID# [id number], Process claim through MedImpact, for questions: . THIS IS NOT INSURANCE.] cyclobenzaprine 10 mg tablet RxNorm: 565671 1 Tablet(s) PO QHS for spasm 04/06/2014 09/01/2014 Inactive ipratropium-albuterol 0.5 mg-3 mg(2.5 mg base)/3 mL ne bulization soln RxNorm: 7167512 1 Unit Dose INH Q4H 03/16/2014 No Stop Date Active [SAVINGS FOR UNINSURED PATIENTS -- BIN:039453, PCN: ASPROD1, Group: AME08, ID# [id number], Process claim through MedImpact, for questions: . THIS IS NOT INSURANCE.] prednisone 20 mg tablet RxNorm: 929683 1 Tablet(s) PO BID 03/09/2014 03/15/2014 Inactive [SAVINGS FOR UNINSURED PATIENTS -- BIN:0 42028, PCN: ASPROD1, Group: AME08, ID# [id number], Process claim through MedImpact, for questions: . THIS IS NOT INSURANCE.] ipratropium-albuterol 0.5 mg-3 mg(2.5 mg base)/3 mL ne bulization soln RxNorm: 0867378 1 Unit Dose INH Q4H 03/09/2014 03/15/2014 Inactive [SAVINGS FOR UNINSURED PATIENTS -- BIN:471096, PCN: ASPROD1, Group: AME08, ID# [id number], Process claim through MedImpact, for questions: . THIS IS NOT INSURANCE.] Levaquin 500 mg tablet RxNorm: 555693 1 Tablet(s) PO QD 03/09/2014 Inactive [SAVINGS FOR UNINSURED PATIENTS -- BIN:0 93585, PCN: ASPROD1, Group: AME08, ID# [id number], Process claim through MedImpact, for questions: . THIS IS NOT INSURANCE.] Carafate 1 gram tablet RxNorm: 298772 1 Tablet(s) PO AC & HS ma ke into slurry 02/09/2014 09/01/2014 Inactive [SAVINGS FOR UNINSUR ED PATIENTS -- BIN:401219, PCN: ASPROD1, Group: AME08, ID# [id number], Process claim through MedImpact, for questions: . THIS IS NOT INSURANCE.] Fioricet 50 mg-300 mg-40 mg capsule RxNorm: 0047951 1-2 Capsule(s) PO Q4H as needed for headache --max of 6 a day 02/09/2014 09/01/2014 Inactive [SAVINGS FOR UNINSURED PATIENTS -- BIN:043907, PCN: ASPROD1, Group: AME08, ID# [id number], Process claim through MedImpact, for questions: . THIS IS NOT INSURANCE.] propranolol 40 mg tablet RxNorm: 329829 1 Tablet(s) PO BID 12/08/19 14 06/04/2014 Inactive [SAVINGS FOR UNINSURED PATIE NTS -- BIN:618627, PCN: ASPROD1, Group: AME08, ID# [id number], Process claim through MedImpact, for questions: . THIS IS NOT INSURANCE.] buspirone 5 mg tablet RxNorm: 094123 1 Tablet(s) PO TID 12/02/2013 Inactive omeprazole 40 mg capsule,delayed release RxNorm: 651331 1 Capsu le(s) PO BID 11/25/2013 11/19/2014 Inactive [SAVINGS FOR UNINSUR ED PATIENTS -- BIN:226401, PCN: ASPROD1, Group: AME08, ID# [id number], Process claim through MedImpact, for questions: . THIS IS NOT INSURANCE.] ropinirole 2 mg tablet RxNorm: 627305 1 Tablet(s) PO QHS 11/10/2013 0 05/08/2014 Inactive [SAVINGS FOR UNINSURED PATIENTS -- BIN:0 81104, PCN: ASPROD1, Group: AME08, ID# [id number], Process claim through MedImpact, for questions: . THIS IS NOT INSURANCE.] Cipro 500 mg tablet RxNorm: 865007 1 Tablet(s) PO BID 10/21/201312/03 Inactive [SAVINGS FOR UNINSURED PATIENTS -- BIN:0 43042, PCN: ASPROD1, Group: AME08, ID# [id number], Process claim through MedImpact, for questions: . THIS IS NOT INSURANCE.] hydroxyzine HCl 25 mg tablet RxNorm: 712907 1 Tablet(s) PO Q4-6 H as needed 10/05/2013 01/04/2016 Inactive [SAVINGS FOR UNINSUR ED PATIENTS -- BIN:243695, PCN: ASPROD1, Group: AME08, ID# [id number], Process claim through MedImpact, for questions: . THIS IS NOT INSURANCE.] triamcinolone acetonide 0.1 % topical cream RxNorm: 9520383 Appl ication TOP BID 10/05/2013 09/01/2014 Inactive [SAVINGS FOR UNINSUR ED PATIENTS -- BIN:023643, PCN: ASPROD1, Group: AME08, ID# [id number], Process claim through MedImpact, for questions: . THIS IS NOT INSURANCE.] albuterol sulfate HFA 90 mcg/actuation aerosol inhaler RxNor m: 5993389 2 Puff(s) INH Q4H as needed for cough 10/01/2013 12/22/2013 Inactive [MAKSIM INGS FOR UNINSURED PATIENTS -- BIN:937656, PCN: ASPROD1, Group: AME08, ID# [id number], Process claim through MedImpact, for questions: . THIS IS NOT INSURANCE.] propranolol 40 mg tablet RxNorm: 619432 1 Tablet(s) PO BID 09/02/19 14 11/29/2013 Inactive [SAVINGS FOR UNINSURED PATIE NTS -- BIN:246665, PCN: ASPROD1, Group: AME08, ID# [id number], Process claim through MedImpact, for questions: . THIS IS NOT INSURANCE.] propranolol 40 mg tablet RxNorm: 321564 1 Tablet(s) PO BID 08/05/19 14 08/31/2013 Inactive [SAVINGS FOR UNINSURED PATIE NTS -- BIN:377647, PCN: ASPROD1, Group: AME08, ID# [id number], Process claim through MedImpact, for questions: . THIS IS NOT INSURANCE.] Toprol XL 50 mg tablet,extended release RxNorm: 690554 1 Tablet (s) PO QHS 07/23/2013 08/03/2013 Inactive Macrobid 100 mg capsule RxNorm: 784955 1 Capsule(s) PO BID 07/04/19 14 07/09/2013 Inactive Toprol XL 50 mg tablet,extended release RxNorm: 540811 1 Tablet (s) PO QHS 05/28/2013 06/26/2013 Inactive ciprofloxacin 500 mg tablet RxNorm: 158992 1 Tablet(s) PO BID 05/2706/02/2013 Inactive Bystolic 5 mg tablet RxNorm: 284943 1 Tablet(s) PO QD 05/27/201305/03 Inactive ropinirole 2 mg tablet RxNorm: 323285 1 Tablet(s) PO QHS 04/22/2013 0 11/09/2013 Inactive Cipro 250 mg tablet RxNorm: 997400 1 Tablet(s) PO BID 04/06/201311/2013 Inactive ropinirole 2 mg tablet RxNorm: 891209 1 Tablet(s) PO QHS 02/17/2013 0 04/21/2013 Inactive Amaryl 2 mg tablet RxNorm: 841236 1 Tablet(s) PO QAM 11/11/201211/10 Inactive Amaryl 2 mg tablet RxNorm: 583816 1 Tablet(s) PO QAM 11/11/201204/05 Inactive omeprazole 40 mg capsule,delayed release RxNorm: 592814 1 Capsu le(s) PO BID 08/14/2012 08/08/2013 Inactive Bystolic 5 mg tablet RxNorm: 450392 1 Tablet(s) PO QD 08/14/201205/03 Inactive propranolol 60 mg tablet RxNorm: 218003 Tablet(s) PO TAKE 1 TAB LET TWICE DAILY 08/01/2012 09/01/2012 Inactive Bystolic 5 mg tablet RxNorm: 791114 1 Tablet(s) PO QD 07/21/201207/02 Inactive Bystolic 5 mg tablet RxNorm: 020206 1 Tablet(s) PO QD 07/21/201207/03 Inactive Prilosec 40 mg capsule,delayed release RxNorm: 323471 1 Capsule (s) PO BID 06/24/2012 07/21/2012 Inactive buspirone 10 mg tablet RxNorm: 849810 1 Tablet(s) PO TID 05/08/2012 0 05/23/2016 Inactive Valium 10 mg tablet RxNorm: 604238 1 Tablet(s) PO BID 04/02/201207/03 Inactive Endocet 10 mg-325 mg tablet RxNorm: 0128331 1 Tablet(s) PO QID 03/0607/21/2012 Inactive as needed for severe pain Valium 10 mg tablet RxNorm: 773127 1 Tablet(s) PO BID 02/27/2012 No S top Date Active Endocet 10 mg-325 mg tablet RxNorm: 6248029 1 Tablet(s) PO QID 02/0203/27/2012 Inactive as needed for severe pain Endocet 10 mg-325 mg tablet RxNorm: 5162263 1 Tablet(s) PO QID 01/0302/26/2012 Inactive as needed for severe pain Valium 10 mg tablet RxNorm: 547445 1 Tablet(s) PO BID 01/29/2012 No S top Date Active Protonix 40 mg tablet,delayed release RxNorm: 117934 1 Tablet(s ) PO QD 01/28/2012 07/21/2012 Inactive metformin ER 500 mg tablet,extended release 24 hr RxNorm: 86 0977 1 Tablet(s) PO QD 12/26/2011 07/20/2012 Inactive Trazadone 150 mg Tablet RxNorm: 1 Tablet(s) PO QHS prn sleep 1 04/23/2012 Inactive Endocet 10 mg-325 mg tablet RxNorm: 2593079 1 Tablet(s) PO QID 12/0301/24/2012 Inactive as needed for severe pain Nexium 40 mg capsule,delayed release RxNorm: 328567 1 Capsule(s ) PO QD 12/26/2011 01/27/2012 Inactive Symbicort 160 mcg-4.5 mcg/actuation HFA Aerosol Inhaler RxNo rm: 2268473 2 Puff(s) INH BID 12/04/2011 07/21/2012 Inactive Endocet 10 mg-325 mg tablet RxNorm: 3711709 1 Tablet(s) PO QID 11/0312/25/2011 Inactive as needed for severe pain metformin ER 500 mg tablet,extended release 24 hr RxNorm: 86 0977 1 Tablet(s) PO QD 11/20/2011 12/19/2011 Inactive metformin ER 500 mg tablet,extended release 24 hr RxNorm: 86 0977 1 Tablet(s) PO QD 11/20/2011 11/19/2011 Inactive amitriptyline 100 mg tablet RxNorm: 383266 Tablet(s) PO QHS 1 a nd 1/2 tabs QHS 11/12/2011 11/13/2011 Inactive Valium 10 mg tablet RxNorm: 163582 1 Tablet(s) PO BID 11/09/2011 No S top Date Active Endocet 10 mg-325 mg tablet RxNorm: 6466538 1 Tablet(s) PO QID 10/0211/14/2011 Inactive as needed for severe pain Aricept 10 mg Tab RxNorm: 894950 1 Tablet(s) PO QD 10/05/2011 013 Inactive Valium 10 mg tablet RxNorm: 429809 1 Tablet(s) PO BID 10/05/2011 No S top Date Active Endocet 10 mg-325 mg Tab RxNorm: 5230736 1 Tablet(s) PO QID 012 10/09/2011 Inactive as needed for severe pain Aricept 10 mg Tab RxNorm: 800493 1 Tablet(s) PO QD 08/14/2011 012 Inactive Endocet 10 mg-325 mg Tab RxNorm: 2760684 1 Tablet(s) PO QID 012 08/31/2011 Inactive as needed for severe pain Valium 10 mg Tab RxNorm: 003505 1 Tablet(s) PO BID 08/02/2011 No Stop Date Active propranolol 60 mg tablet RxNorm: 400284 1 Tablet(s) PO BID 07/26/1909/11/2011 Inactive amitriptyline 100 mg tablet RxNorm: 844348 Tablet(s) PO QHS 1 a nd 1/2 tabs QHS 06/20/2011 09/11/2011 Inactive buspirone 10 mg tablet RxNorm: 616971 1 Tablet(s) PO BID 06/18/2011 0 09/15/2011 Inactive propranolol 60 mg Tab RxNorm: 504099 1 Tablet(s) PO BID 06/18/2011 Inactive gabapentin 800 mg Tab RxNorm: 675960 1 Tablet(s) PO BID 06/18/2011 Inactive ropinirole 2 mg tablet RxNorm: 814555 1 Tablet(s) PO QHS 05/29/2011 0 08/26/2011 Inactive trimethoprim 100 mg Tab RxNorm: 762051 1 Tablet(s) PO QHS 05/29/2011 07/21/2012 Inactive Endocet 10 mg-325 mg Tab RxNorm: 5261976 1 Tablet(s) PO QID 012 2011 Inactive as needed for severe pain Valium 10 mg Tab RxNorm: 282235 1 Tablet(s) PO QHS N eed to take med as prescribed. this is a 40 day RX. No early fills. 05/17/2011 05/20/2018 Inactive propranolol 60 mg Tab RxNorm: 536345 1 Tablet(s) PO BID 04/16/2011 Inactive Neurontin 800 mg Tab RxNorm: 568514 1 Tablet(s) PO QHS 04/05/201103/2011 Inactive Endocet 10 mg-325 mg Tab RxNorm: 8971574 1 Tablet(s) PO QID 012 05/02/2011 Inactive as needed for severe pain oxycodone-acetaminophen 10 mg-325 mg tablet RxNorm: 0176151 1 Ta blet(s) PO Q4H 03/28/2011 05/19/2012 Inactive Valium 10 mg Tab RxNorm: 940551 1 Tablet(s) PO QHS 03/28/2011 012 Inactive buspirone 10 mg Tab RxNorm: 449282 1 Tablet(s) PO BID 03/27/201106/02 Inactive propranolol 60 mg Tab RxNorm: 041315 1 Tablet(s) PO BID 03/19/2011 Inactive Klor-Con M20 20 mEq Tab RxNorm: 3541853 1 Tablet(s) PO QD 03/19/2011 07/21/2012 Inactive Aricept 10 mg Tab RxNorm: 142544 1 Tablet(s) PO QD 02/27/2011 012 Inactive propranolol 60 mg Tab RxNorm: 273194 1 Tablet(s) PO BID 02/19/2011 Inactive omeprazole 40 mg capsule,delayed release RxNorm: 685741 1 Capsu le(s) PO BID 01/24/2011 05/23/2011 Inactive clindamycin 300 mg capsule RxNorm: 945083 1 Capsule(s) PO TID 01/2402/02/2011 Inactive propranolol 60 mg Tab RxNorm: 862462 1 Tablet(s) PO BID 01/22/2011 No Stop Date Active nystatin 100,000 unit/g Topical Cream RxNorm: 265665 Applicatio n TOP BID 01/15/2011 01/14/2011 Inactive to rash for 2-4 week s Diflucan 200 mg Tab RxNorm: 722035 1 Tablet(s) PO QD 01/15/201101/28 Inactive buspirone 10 mg Tab RxNorm: 946316 1 Tablet(s) PO BID 01/08/201103/05 Inactive Valium 10 mg Tab RxNorm: 530722 1 Tablet(s) PO QHS 01/05/2011 012 Inactive Diflucan 200 mg Tab RxNorm: 738826 1 Tablet(s) PO QD 01/01/201101/14 Inactive Diflucan 200 mg Tab RxNorm: 079836 1 Tablet(s) PO QD 12/18/201012/31 Inactive Valium 10 mg Tab RxNorm: 306174 1 Tablet(s) PO QHS 12/12/2010 011 Inactive Diflucan 200 mg Tab RxNorm: 191091 1 Tablet(s) PO QD 12/07/201012/18 Inactive Aricept 10 mg Tab RxNorm: 861065 1 Tablet(s) PO QD 11/20/2010 011 Inactive ropinirole 1 mg Tab RxNorm: 192038 1 Tablet(s) PO QHS 11/16/201005/03 Inactive enalapril maleate 5 mg Tab RxNorm: 153415 1 Tablet(s) PO QD 011 05/20/2018 Inactive buspirone 10 mg Tab RxNorm: 397117 1 Tablet(s) PO BID 11/16/201012/02 Inactive Valium 10 mg Tab RxNorm: 018341 1 Tablet(s) PO QHS 11/07/2010 011 Inactive Pyridium 100 mg Tab RxNorm: 2152579 1 Tablet(s) PO TID 11/02/201004/2010 Inactive Macrobid 100 mg Cap RxNorm: 8480898 1 Capsule(s) PO BID 11/02/2010 Inactive buspirone 10 mg Tab RxNorm: 990078 1 Tablet(s) PO QHS 10/18/201005/02 Inactive propranolol 60 mg Tab RxNorm: 607531 1 Tablet(s) PO BID 09/18/2010 Inactive Valium 10 mg Tab RxNorm: 220272 1 Tablet(s) PO QHS 09/05/2010 011 Inactive Aricept 10 mg Tab RxNorm: 039789 1 Tablet(s) PO QD 08/14/2010 011 Inactive Valium 10 mg Tab RxNorm: 306557 1 Tablet(s) PO QHS 06/26/2010 011 Inactive ropinirole 1 mg Tab RxNorm: 664158 1 Tablet(s) PO QHS 06/19/201010/02 Inactive omeprazole 40 mg Cap, delayed release RxNorm: 361707 1 Capsule( s) PO QD 06/07/2010 10/04/2010 Inactive Endocet 10 mg-325 mg Tab RxNorm: 9749916 1 Tablet(s) PO QID as needed for severe pain 06/07/2010 03/07/2011 Inactive Endocet 10 mg-325 mg Tab RxNorm: 3617536 1 Tablet(s) PO QID as needed for severe pain 05/04/2010 06/02/2010 Inactive Valium 10 mg Tab RxNorm: 365360 1 Tablet(s) PO QHS 05/01/2010 011 Inactive propranolol 60 mg Tab RxNorm: 740717 1 Tablet(s) PO BID 04/03/2010 Inactive Valium 10 mg Tab RxNorm: 115184 1 Tablet(s) PO QHS 03/28/2010 011 Inactive omeprazole 40 mg Cap, Delayed Release RxNorm: 007959 1 Capsule( s) PO QD 03/28/2010 06/06/2010 Inactive Endocet 10 mg-325 mg Tab RxNorm: 7523201 1 Tablet(s) PO QID prn ari n 03/27/2010 05/20/2018 Inactive Valium 10 mg Tab RxNorm: 631176 1 Tablet(s) PO QHS 02/20/2010 011 Inactive Diflucan 100 mg Tab RxNorm: 633859 1 Tablet(s) PO BID 01/23/201003/2009 Inactive Diflucan 100 mg Tab RxNorm: 647811 1 Tablet(s) PO BID 01/05/201001/02 Inactive Aricept 10 mg Tab RxNorm: 569156 1 Tablet(s) PO QD 12/01/2009 011 Inactive OxyContin 20 mg 12 hr Tab RxNorm: 0905831 1 Tablet(s) PO BID 200904/05/2010 Inactive oxycodone-acetaminophen 10 mg-325 mg Tab RxNorm: 0203084 1 Table t(s) PO Q4H 11/22/2009 11/26/2009 Inactive Phenergan 25 mg Tab RxNorm: 852514 1 Tablet(s) PO PRN MIGRAINE 11/0303/07/2011 Inactive Demerol 100 mg Tab RxNorm: 799318 1 Tablet(s) PO PRN MIGRAINE 11/2203/07/2011 Inactive Oxycodone-Acetaminophen 10 mg-325 mg Tab RxNorm: 1836555 1 Table t(s) PO Q4H 10/11/2009 10/15/2009 Inactive Percocet 10 mg-325 mg Tab RxNorm: 5135971 1 Tablet(s) PO Q4H 200910/24/2009 Inactive propranolol 60 mg Tab RxNorm: 894421 1 Tablet(s) PO BID 08/29/2009 Inactive Valium 10 mg Tab RxNorm: 888518 1 Tablet(s) PO QHS 08/16/2009 010 Inactive Keflex 500 mg Cap RxNorm: 552749 1 Capsule(s) PO BID 07/25/200907/31 Inactive Hydroxyzine 25 mg Tab RxNorm: 315460 1 Tablet(s) PO TID 07/25/2009 Inactive Prednisone 20 mg Tab RxNorm: 782264 1 Tablet(s) PO BID 07/25/2009 Inactive Demerol 100 mg Tab RxNorm: 890444 1 Tablet(s) PO PRN MIGRAINE 07/25 No Stop Date Active Ropinirole 1 mg Tab RxNorm: 060492 1 Tablet(s) PO HS 07/20/200902/14 Inactive Valium 10 mg Tab RxNorm: 996008 1 Tablet(s) PO QHS 07/18/2009 010 Inactive Endocet 10 mg-325 mg Tab RxNorm: 1933583 1 Tablet(s) PO TID 010 07/07/2009 Inactive Demerol 100 mg Tab RxNorm: 757362 1 Tablet(s) PO PRN MIGRAINE 06/08 No Stop Date Active Ropinirole 1 mg Tab RxNorm: 369755 1 Tablet(s) PO HS 05/16/200907/14 Inactive ipratropium-albuterol 0.5 mg-3 mg(2.5 mg base)/3 mL ne bulization soln RxNorm: 0141482 1 Unit Dose INH Q4H as needed No Start Date Active MagOx 400 mg (241.3 mg magnesium) tablet RxNorm: 928067 1 Table t(s) PO BID No Start Date Active Vitamin B12 1000mcg Tablet RxNorm: 1 Tablet(s) PO QD No Start Date Active Vitamin D3 5,000 unit tablet RxNorm: 864705 1 Tablet(s) PO QD No Star t Date Active Tylenol Arthritis Pain 650 mg tablet,extended release RxNorm : 0375633 1 Tablet(s) PO Q4H No Start Date Active Lotrimin AF 2 % topical powder RxNorm: 579144 1 Application TOP BID No Start Date Active enalapril maleate 5 mg Tab RxNorm: 716633 1 Tablet(s) PO QD No Star t Date 07/20/2012 Inactive Demerol 100 mg Tab RxNorm: 180929 Tablet(s) PO PRN MIGRAINE No Star t Date 06/02/2009 Inactive metformin 500 mg tablet RxNorm: 839812 1 Tablet(s) PO QD No Start D ate 04/05/2013 Inactive Breo Ellipta 100 mcg-25 mcg/dose powder for inhalation RxNor m: 8680499 1 Puff(s) INH BID No Start Date 01/04/2016 Inactive Mag-Oxide 400 mg Tab RxNorm: 896317 1 Tablet(s) PO QD No Start Date 0 07/21/2012 Inactive Cipro 500 mg Tab RxNorm: 829685 1 Tablet(s) PO QD No Start Date 04/05 Inactive Ativan 0.5 mg tablet RxNorm: 858765 1 Tablet(s) PO TID as needed No Start Date 05/06/2019 Inactive melatonin 3 mg tablet RxNorm: 236550 2 Tablet(s) PO QHS No Start Da te 08/19/2018 Inactive buspirone 10 mg Tab RxNorm: 909321 1 Tablet(s) PO QD No Start Date Inactive sucralfate 100 mg/mL Oral Susp RxNorm: 860658 2 Teaspoon(s) PO QID No Start Date 07/21/2012 Inactive hydrocodone 5 mg-acetaminophen 325 mg tablet RxNorm: 199750 1 Tablet(s) PO Q4H as needed No Start Date 08/19/2018 Inactive Amaryl 2 mg tablet RxNorm: 602582 1 Tablet(s) PO BID No Start Date Inactive OxyContin 20 mg 12 hr Tab RxNorm: 1945545 1 Tablet(s) PO BID No Sta rt Date 11/27/2009 Inactive propranolol 40 mg tablet RxNorm: 631536 1 Tablet(s) PO QID No Start Date 01/19/2018 Inactive Trazadone 150 mg Tablet RxNorm: 1-2 Tablet(s) PO QHS prn sleep No Start Date 08/09/2010 Inactive propranolol 60 mg Tab RxNorm: 414877 1/2 Tablet(s) PO BID No Start Date 01/21/2011 Inactive insulin NPH and regular human subcutaneous RxNorm: 4024947 subcu taneous No Start Date 11/20/2018 Inactive Ativan 0.5 mg tablet RxNorm: 968404 1 Tablet(s) PO QID No Start Date 06/18/2016 Inactive Vasotec 5 mg Tab RxNorm: 224519 1 Tablet(s) PO BID No Start Date 06/2011 Inactive Toprol XL 50 mg tablet,extended release RxNorm: 810758 1 Tablet (s) PO BID No Start Date 04/05/2013 Inactive Ativan 0.5 mg tablet RxNorm: 271501 1 Tablet(s) PO TID No Start Date 05/25/2016 Inactive Klor-Con M20 20 mEq Tab RxNorm: 5481556 1 Tablet(s) PO QD No Start Date 03/19/2011 Inactive sumatriptan 100 mg tablet RxNorm: 273370 1 Tablet(s) PO at headache onset--repeat in 2hrs if remains No Start Date 07/21/2012 Inactive propranolol 60 mg Tab RxNorm: 271846 1 Tablet(s) PO BID No Start Da te 08/28/2009 Inactive Cholestyramine Light 4 gram Oral Powder RxNorm: 8972226 1 Unit Dose PO QD in water No Start Date 07/21/2012 Inactive nystatin 100,000 unit/g Topical Powder RxNorm: 763780 Applicati on TOP BID No Start Date 07/21/2012 Inactive vitamin O67-dmear acid sublingual RxNorm: sublingual No Start Date 07/05/2013 Inactive cyclobenzaprine 5 mg tablet RxNorm: 233688 1/2-1 Tablet (s) PO TID as needed for muscle spasm No Start Date 07/18/2017 Inactive tramadol 50 mg tablet RxNorm: 965439 2 Tablet(s) PO TID as need ed for pain No Start Date 09/01/2014 Inactive aspirin 81 mg Tab RxNorm: 519883 1 Tablet(s) PO QOD No Start Date 04/2013 Inactive Vitamin B12 1000mcg Tablet RxNorm: 1 Tablet(s) PO QD No Start Date 07/18/2017 Inactive cholestyramine (with sugar) 4 gram oral powder RxNorm: 46957 3 1 Unit(s) PO QD as needed No Start Date 05/20/2018 Inactive ProAir HFA 90 mcg/Actuation Aerosol Inhaler RxNorm: 821056 2 Puff(s) INH Q4H prn shortness of breath No Start Date 07/21/2012 Inactive pravastatin 10 mg Tab RxNorm: 730918 1 Tablet(s) PO QD No Start Date 07/21/2012 Inactive gabapentin 800 mg Tab RxNorm: 561675 1 Tablet(s) PO BID No Start Da te 06/03/2011 Inactive Endocet 10 mg-325 mg Tab RxNorm: 9812609 1 Tablet(s) PO TID No Star t Date 06/02/2009 Inactive Naproxen 500 mg Tab RxNorm: 110743 1 Tablet(s) PO BID No Start Date 0 04/05/2010 Inactive Valium 10 mg Tab RxNorm: 467089 1 Tablet(s) PO BID No Start Date 07/04 Inactive enalapril maleate 5 mg Tab RxNorm: 165106 1 Tablet(s) PO QD No Star t Date 11/15/2010 Inactive doxepin 10 mg capsule RxNorm: 3200420 2 Capsule(s) PO QHS No Start Date 09/17/2018 Inactive MS Contin 15 mg Tab RxNorm: 758184 1 Tablet(s) PO BID No Start Date 0 09/18/2010 Inactive buspirone 5 mg tablet RxNorm: 961317 1 Tablet(s) PO TID No Start Da te 12/01/2013 Inactive [place] 3 Fish Oil Cap RxNorm: 1 Capsule(s) PO QD No Start Date 07/03 Inactive enalapril maleate 5 mg Tab RxNorm: 779284 1/2 Tablet(s) PO QD No St art Date 03/07/2011 Inactive Lyrica 75 mg capsule RxNorm: 325150 1 Capsule(s) PO QHS No Start Da te 02/08/2014 Inactive Lopressor 100 mg tablet RxNorm: 308620 1 Tablet(s) PO BID No Start Date 06/08/2018 Inactive Lantus Solostar U-100 Insulin 100 unit/mL (3 mL) subcu taneous pen RxNorm: 269817 45 Unit(s) SQ QAM No Start Date 05/20/2018 Inactive aspirin 81 mg tablet RxNorm: 423616 1 Tablet(s) PO QD No Start Date 0 09/14/2015 Inactive diltiazem CD 240 mg capsule,extended release 24 hr RxNorm: 8 70053 1 Capsule(s) PO QD No Start Date 05/25/2019 Inactive insulin NPH isophane U-100 human subcutaneous RxNorm: 990659 beckwith bcutaneous No Start Date 04/20/2019 Inactive sumatriptan 100 mg tablet RxNorm: 768805 1 Tablet(s) PO at headache onset. May repeat 1 in two hours if headache remains. Max of 2 per 24 hours No Start Date 04/01/2018 Inactive gabapentin 300 mg capsule RxNorm: 779561 1 Capsule(s) PO QHS No Sta rt Date 02/04/2018 Inactive Topamax 25 mg Tab RxNorm: 322689 Oral No Start Date 03/07/2011 In active Senokot-S 8.6 mg-50 mg Tab RxNorm: 0674297 1 Tablet(s) PO QD No Sta rt Date 03/07/2011 Inactive metformin ER 500 mg 24 hr tablet,extended release RxNorm: 18 29307 1 Tablet(s) PO QD No Start Date 05/20/2018 Inactive Symbicort 80 mcg-4.5 mcg/actuation HFA Aerosol Inhaler RxNor m: 4880286 2 Puff(s) INH BID No Start Date 04/05/2013 Inactive metoprolol tartrate 25 mg tablet RxNorm: 446837 1 Tablet(s) PO BID No Start Date 05/20/2019 Inactive propranolol 60 mg Tab RxNorm: 656912 1/2 Tablet(s) PO BID No Start Date 07/21/2012 Inactive metformin ER 500 mg 24 hr tablet,extended release RxNorm: 18 68872 2 Tablet(s) PO QD No Start Date 12/16/2017 Inactive Insulin Syringe 1 mL 29 gauge x 1/2" RxNorm: 2 s yringes daily with insulin Dx: E11.65 No Start Date 10/07/2018 Inactive Amitriptyline 75 mg Tab RxNorm: 910950 1 Tablet(s) PO QHS No Start Date 10/23/2009 Inactive donepezil 10 mg Tab RxNorm: 952680 1 Tablet(s) PO QD No Start Date Inactive Lantus Solostar U-100 Insulin 100 unit/mL (3 mL) subcu taneous pen RxNorm: 761333 36 Unit(s) SQ QAM No Start Date 12/24/2017 Inactive Miacalcin 200 unit/Actuation Nasal [place] Aerosol RxNorm: 261 204 1 [place] NASAL QD Alternate nostrils each day No Start Date 04/05/2010 Inactive Amitriptyline 150 mg Tab RxNorm: 387638 1 Tablet(s) PO QHS No Start Date 01/04/2010 Inactive Bystolic 5 mg tablet RxNorm: 828869 1 Tablet(s) PO QD No Start Date 0 08/13/2012 Inactive Aricept 10 mg Tab RxNorm: 478592 1 Tablet(s) PO QD No Start Date 11/03 Inactive Lantus Solostar U-100 Insulin 100 unit/mL (3 mL) subcu taneous pen RxNorm: 280420 50 Unit(s) SQ QAM No Start Date 08/27/2018 Inactive albuterol sulfate 2.5 mg/3 mL (0.083 %) Neb Solution RxNorm: 255883 1 Unit Dose INH QID as needed No Start Date 08/23/2015 Inactive Symbicort 160 mcg-4.5 mcg/actuation HFA Aerosol Inhaler RxNo rm: 5138079 2 Puff(s) INH BID No Start Date 12/03/2011 Inactive [place] 50 mg Tab RxNorm: 818271 1 Tablet(s) PO BID No Start Date 04/2010 Inactive amitriptyline 100 mg Tab RxNorm: 833862 1 1/2 Tablet(s) PO QHS No S tart Date 06/19/2011 Inactive nystatin 100,000 unit/g Topical Cream RxNorm: 495739 Ap plication TOP BID to rash for 2-4 weeks No Start Date 01/14/2011 Inactive Trelegy Ellipta 100 mcg-62.5 mcg-25 mcg powder for inhalatio n RxNorm: 1389221 1 Puff(s) INH QD No Start Date 12/16/2017 Inactive Lyrica 150 mg capsule RxNorm: 804053 1 Capsule(s) PO QHS No Start D ate 12/04/2015 Inactive sennosides 8.6 mg tablet RxNorm: 745102 1 Tablet(s) PO BID No Start Date 09/07/2018 Inactive metformin ER 500 mg tablet,extended release 24 hr RxNorm: 86 0975 1 Tablet(s) PO QD No Start Date 10/22/2017 Inactive Fish Oil 1,000 mg Cap RxNorm: 1 Capsule(s) PO QD No Start Date 06/2011 Inactive Zyrtec 10 mg Tab RxNorm: 4585473 1 Tablet(s) PO QD No Start Date 07/03 Inactive albuterol sulfate HFA 90 mcg/actuation aerosol inhaler RxNor m: 1384281 2 Puff(s) INH Q4H as needed for cough No Start Date 09/30/2013 Inactive trazodone 150 mg tablet RxNorm: 705994 1 Tablet(s) PO QHS No Start Date 07/21/2012 Inactive Spiriva with HandiHaler 18 mcg & inhalation capsules RxNorm: 617588 1 Capsule(s) INH QD No Start Date 04/05/2013 Inactive Coreg 3.125 mg Tab RxNorm: 199402 1 Tablet(s) PO BID No Start Date Inactive Phenergan 25 mg Tab RxNorm: 132292 Tablet(s) PO PRN MIGRAINE No Sta rt Date 11/21/2009 Inactive Vitamin D 50,000 unit Cap RxNorm: 6939484 1 Capsule(s) PO QW No Sta rt Date 03/07/2011 Inactive Januvia 100 mg tablet RxNorm: 768885 1 Tablet(s) PO QD No Start Date 10/25/2015 Inactive Eliquis 5 mg tablet RxNorm: 0970343 1 Tablet(s) PO BID No Start Date 08/19/2018 Inactive Advair Diskus 500 mcg-50 mcg/Dose for Inhalation RxNorm: 887467 1 INH BID No Start Date 07/21/2012 Inactive Vitamin D3 5,000 unit tablet RxNorm: 276297 1 Tablet(s) PO QD No St art Date 07/18/2017 Inactive Amaryl 2 mg tablet RxNorm: 015752 1 Tablet(s) PO QD No Start Date 06/2015 Inactive Actos 30 mg tablet RxNorm: 377570 1 Tablet(s) PO QD No Start Date Inactive promethazine 25 mg tablet RxNorm: 931787 1 Tablet(s) PO Q4H prn N/V No Start Date 07/21/2012 Inactive ProAir HFA 90 mcg/actuation Aerosol Inhaler RxNorm: 769355 2 Puff(s) INH Q4H prn dyspnea No Start Date 07/21/2012 Inactive Dexilant 60 mg Capsule RxNorm: 165806 1 Capsule(s) PO QD No Start D ate 01/27/2012 Inactive Lantus Solostar U-100 Insulin 100 unit/mL (3 mL) subcu taneous pen RxNorm: 075551 38 Unit(s) SQ QAM No Start Date 05/20/2018 Inactive Valium 10 mg Tab RxNorm: 964090 1 Tablet(s) PO QHS AND PRN No Start Date 10/24/2009 Inactive ZOFRAN ODT 8 mg disintegrating tablet RxNorm: 533548 1 Tablet(s ) PO Q6H No Start [...] Date S ervice Location MICROALBUMIN URINE RANDOM 16243 MICRL MG/L 14.9 MG/L Unknown MICROALBUMIN URINE RANDOM 39438 XM.ALB/CRE 6.1 MG/GCR Unknown MICROALBUMIN URINE RANDOM 64493 CREAT MG/D 243 MG/DL Unknown MICROALBUMIN URINE RANDOM 30541 CRE/100 2.43 G/L 03/05 Unknown PROTEIN/CREAT URINE WITH RATIO 76431|08147 PROT R U 14 MG/D L 04/01/2014 Unknown PROTEIN/CREAT URINE WITH RATIO 88914|60874 CREAT R U 254 MG/ DL 04/01/2014 Unknown PROTEIN/CREAT URINE WITH RATIO 88711|52357 XRATIO P/C 55 MG/ G 04/01/2014 Unknown URINALYSIS 40635 PROTEIN UR NEG 04/28/2010 Unknown URINALYSIS 00508 HEMGLBN UR NEG 04/28/2010 Unknown URINALYSIS 60119 GLUCOSE UR NEG 04/28/2010 Unknown URINALYSIS 26317 KETONES UR NEG 04/28/2010 Unknown URINALYSIS 33269 PH U 5.5 04/28/2010 Unknown URINALYSIS 26095 SP GR U 1.025 04/28/2010 Unknown URINALYSIS 67693 BILRUBN UR NEG 04/28/2010 Unknown URINALYSIS 95067 LEUKO UR 2+ 04/28/2010 Unknown URINALYSIS 76561 NITRITE UR NEG 04/28/2010 Unknown MICR CUL? [id number] WBC/HPF 6-10 04/28/2010 Unknown MICR CUL? [id number] RBC/HPF 0-5 04/28/2010 Unknown MICR CUL? [id number] SP TO YOLIE? NO 04/28/2010 Unknown MICR CUL? [id number] HYAL CAST 16-25 04/28/2010 Unknown MICR CUL? [id number] APPEAR UR NORMAL 04/28/2010 Unknown MICR CUL? [id number] SQ EPI/LPF FEW 04/28/2010 Unknown Procedures Procedure Codes Date URINALYSIS NONAUTO W/O SCOPE CPT-4: 54004 04/16/2019 URINE CULTURE/ COLONY COUNT CPT-4: 18568 04/16/2019 CEFTRIAXONE SODIUM INJECTION CPT-4: J0696 04/16/2019 THER/PROPH/DIAG INJ SC/IM CPT-4: 78225 04/16/2019 DRAIN/INJECT JOINT/BURSA CPT-4: 87892 01/22/2019 TRIAMCINOLONE ACET INJ NOS CPT-4: J3301 01/22/2019 DEXAMETHASONE SODIUM PHOS CPT-4: J1100 01/22/2019 URINE CULTURE/ COLONY COUNT CPT-4: 43139 01/07/2019 URINALYSIS NONAUTO W/O SCOPE CPT-4: 79823 01/07/2019 CEFTRIAXONE SODIUM INJECTION CPT-4: J0696 01/07/2019 THER/PROPH/DIAG INJ SC/IM CPT-4: 28881 01/07/2019 FLU VACC PRSV FREE INC ANTIG 65 AND OLDER CPT-4: 80054 12/24/2018 FLU VACC PRSV FREE INC ANTIG 65 AND OLDER CPT-4: 57600 12/24/2018 ADMIN INFLUENZA VIRUS VAC CPT-4: G0008 12/24/2018 THER/PROPH/DIAG INJ SC/IM CPT-4: 79541 11/04/2018 KETOROLAC TROMETHAMINE INJ CPT-4: J1885 11/04/2018 PROMETHAZINE HCL INJECTION CPT-4: J2550 11/04/2018 PPPS, subseq visit CPT-4: G0439 09/18/2018 THER/PROPH/DIAG INJ SC/IM CPT-4: 74501 04/01/2018 KETOROLAC TROMETHAMINE INJ CPT-4: J1885 04/01/2018 PROMETHAZINE HCL INJECTION CPT-4: J2550 04/01/2018 URINE CULTURE/ COLONY COUNT CPT-4: 80167 03/17/2018 URINALYSIS NONAUTO W/O SCOPE CPT-4: 51024 03/17/2018 FLU VACC PRSV FREE INC ANTIG 65 AND OLDER CPT-4: 67768 12/17/2017 PNEUMOCOCCAL VACC 23 RANDALL IM CPT-4: 03145 12/17/2017 ADMIN INFLUENZA VIRUS VAC CPT-4: G0008 12/17/2017 ADMIN PNEUMOCOCCAL VACCINE CPT-4: G0009 12/17/2017 PPPS, subseq visit CPT-4: G0439 09/17/2017 THER/PROPH/DIAG INJ SC/IM CPT-4: 32166 08/26/2017 KETOROLAC TROMETHAMINE INJ CPT-4: J1885 08/26/2017 PROMETHAZINE HCL INJECTION CPT-4: J2550 08/26/2017 URINALYSIS NONAUTO W/O SCOPE CPT-4: 30188 07/19/2017 URINE CULTURE/ COLONY COUNT CPT-4: 07507 07/19/2017 CEFTRIAXONE SODIUM INJECTION CPT-4: J0696 07/19/2017 THER/PROPH/DIAG INJ SC/IM CPT-4: 03953 07/19/2017 THER/PROPH/DIAG INJ SC/IM CPT-4: 14973 07/19/2017 TRIAMCINOLONE ACET INJ NOS CPT-4: J3301 07/19/2017 PRESCRIP TRANSMIT VIA ERX SY CPT-4: G8553 05/07/2017 PRESCRIP TRANSMIT VIA ERX SY CPT-4: G8553 02/22/2017 PRESCRIP TRANSMIT VIA ERX SY CPT-4: G8553 01/23/2017 FLU VACC PRSV FREE INC ANTIG 65 AND OLDER CPT-4: 85437 12/20/2016 PNEUMOCOCCAL VACC 13 RANDALL IM CPT-4: 25217 12/20/2016 ADMIN INFLUENZA VIRUS VAC CPT-4: G0008 12/20/2016 ADMIN PNEUMOCOCCAL VACCINE CPT-4: G0009 12/20/2016 URINALYSIS NONAUTO W/O SCOPE CPT-4: 57536 10/08/2016 URINE CULTURE/ COLONY COUNT CPT-4: 05112 10/08/2016 PRESCRIP TRANSMIT VIA ERX SY CPT-4: G8553 10/08/2016 PRESCRIP TRANSMIT VIA ERX SY CPT-4: G8553 09/19/2016 PRESCRIP TRANSMIT VIA ERX SY CPT-4: G8553 08/20/2016 PRESCRIP TRANSMIT VIA ERX SY CPT-4: G8553 02/29/2016 KETOROLAC TROMETHAMINE INJ CPT-4: J1885 02/02/2016 THER/PROPH/DIAG INJ SC/IM CPT-4: 88720 02/02/2016 PROMETHAZINE HCL INJECTION CPT-4: J2550 02/02/2016 PRESCRIP TRANSMIT VIA ERX SY CPT-4: G8553 02/02/2016 FLU VACC PRSV FREE INC ANTIG 65 AND OLDER CPT-4: 51506 01/05/2016 PPPS, subseq visit CPT-4: G0439 01/05/2016 ADMIN INFLUENZA VIRUS VAC CPT-4: G0008 01/05/2016 URINE CULTURE/ COLONY COUNT CPT-4: 40903 12/05/2015 URINALYSIS NONAUTO W/O SCOPE CPT-4: 51086 12/05/2015 PRESCRIP TRANSMIT VIA ERX SY CPT-4: G8553 12/05/2015 PRESCRIP TRANSMIT VIA ERX SY CPT-4: G8553 10/26/2015 URINALYSIS NONAUTO W/O SCOPE CPT-4: 77300 10/05/2015 URINE CULTURE/ COLONY COUNT CPT-4: 68665 10/05/2015 PRESCRIP TRANSMIT VIA ERX SY CPT-4: G8553 10/05/2015 SERVICE REQUIRED FOR PMD CPT-4: G0372 09/15/2015 PRESCRIP TRANSMIT VIA ERX SY CPT-4: G8553 09/15/2015 SPECIAL REPORTS OR FORMS CPT-4: 35835 08/25/2015 PRESCRIP TRANSMIT VIA ERX SY CPT-4: G8553 07/05/2015 URINALYSIS NONAUTO W/O SCOPE CPT-4: 85303 03/30/2015 ASSAY, GLUCOSE, BLOOD QUANT CPT-4: 57691 03/30/2015 URINE CULTURE/ COLONY COUNT CPT-4: 78768 03/30/2015 PRESCRIP TRANSMIT VIA ERX SY CPT-4: G8553 03/30/2015 PRESCRIP TRANSMIT VIA ERX SY CPT-4: G8553 02/03/2015 FLU VACC PRSV FREE INC ANTIG 65 AND OLDER CPT-4: 32521 12/29/2014 ADMIN INFLUENZA VIRUS VAC CPT-4: G0008 12/29/2014 PRESCRIP TRANSMIT VIA ERX SY CPT-4: G8553 12/29/2014 PRESCRIP TRANSMIT VIA ERX SY CPT-4: G8553 09/02/2014 PROTEIN/CREAT URINE WITH RATIO CPT-4: 49126|[id number] 5 MICROALBUMIN QUANTITATIVE CPT-4: 84381 04/01/2014 PRESCRIP TRANSMIT VIA ERX SY CPT-4: G8553 03/16/2014 PRESCRIP TRANSMIT VIA ERX SY CPT-4: G8553 03/09/2014 THER/PROPH/DIAG INJ SC/IM CPT-4: 64115 03/01/2014 TRIAMCINOLONE ACET INJ NOS CPT-4: J3301 03/01/2014 PRESCRIP TRANSMIT VIA ERX SY CPT-4: G8553 02/09/2014 URINE CULTURE/ COLONY COUNT CPT-4: 97752 10/30/2013 URINALYSIS NONAUTO W/O SCOPE CPT-4: 09414 10/21/2013 URINE CULTURE/ COLONY COUNT CPT-4: 58945 10/21/2013 DESTRUCT PREMALG LESION (Cryosurgery) CPT-4: 10470 PRESCRIP TRANSMIT VIA ERX SY CPT-4: G8553 10/05/2013 URINALYSIS NONAUTO W/O SCOPE CPT-4: 03409 08/04/2013 URINE CULTURE/ COLONY COUNT CPT-4: 48620 08/04/2013 PRESCRIP TRANSMIT VIA ERX SY CPT-4: G8553 08/04/2013 THER/PROPH/DIAG INJ SC/IM CPT-4: 74265 07/13/2013 TRIAMCINOLONE ACET INJ NOS CPT-4: J3301 07/13/2013 PRESCRIP TRANSMIT VIA ERX SY CPT-4: G8553 05/27/2013 URINALYSIS NONAUTO W/O SCOPE CPT-4: 12318 05/25/2013 URINE CULTURE/ COLONY COUNT CPT-4: 74125 05/25/2013 THER/PROPH/DIAG INJ SC/IM CPT-4: 51131 05/04/2013 VITAMIN B12 INJECTION CPT-4: J3420 05/04/2013 THER/PROPH/DIAG INJ SC/IM CPT-4: 99851 04/17/2013 VITAMIN B12 INJECTION CPT-4: J3420 04/17/2013 THER/PROPH/DIAG INJ SC/IM CPT-4: 89569 04/17/2013 METHYLPREDNISOLONE 40 MG INJ CPT-4: J1030 04/17/2013 TRIAMCINOLONE ACET INJ NOS CPT-4: J3301 04/17/2013 URINALYSIS NONAUTO W/O SCOPE CPT-4: 13671 04/06/2013 URINE CULTURE/ COLONY COUNT CPT-4: 86760 04/06/2013 PRESCRIP TRANSMIT VIA ERX SY CPT-4: G8553 04/06/2013 KETOROLAC TROMETHAMINE INJ CPT-4: J1885 06/25/2012 PROMETHAZINE HCL INJECTION CPT-4: J2550 06/25/2012 THER/PROPH/DIAG INJ SC/IM CPT-4: 21631 06/25/2012 THER/PROPH/DIAG INJ SC/IM CPT-4: 22698 06/24/2012 METHYLPREDNISOLONE 40 MG INJ CPT-4: J1030 06/24/2012 TRIAMCINOLONE ACET INJ NOS CPT-4: J3301 06/24/2012 URINE CULTURE/ COLONY COUNT CPT-4: 82467 06/24/2012 THER/PROPH/DIAG INJ SC/IM CPT-4: 83573 05/20/2012 KETOROLAC TROMETHAMINE INJ CPT-4: J1885 05/20/2012 THER/PROPH/DIAG INJ SC/IM CPT-4: 93261 05/20/2012 PROMETHAZINE HCL INJECTION CPT-4: J2550 05/20/2012 DRAIN/INJECT JOINT/BURSA CPT-4: 00696 02/13/2012 METHYLPREDNISOLONE 40 MG INJ CPT-4: J1030 02/13/2012 TRIAMCINOLONE ACET INJ NOS CPT-4: J3301 02/13/2012 THER/PROPH/DIAG INJ SC/IM CPT-4: 24551 11/14/2011 METHYLPREDNISOLONE 40 MG INJ CPT-4: J1030 11/14/2011 TRIAMCINOLONE ACET INJ NOS CPT-4: J3301 11/14/2011 THER/PROPH/DIAG INJ SC/IM CPT-4: 48834 09/12/2011 KETOROLAC TROMETHAMINE INJ CPT-4: J1885 09/12/2011 THER/PROPH/DIAG INJ SC/IM CPT-4: 23474 08/09/2011 METHYLPREDNISOLONE 40 MG INJ CPT-4: J1030 08/09/2011 TRIAMCINOLONE ACET INJ NOS CPT-4: J3301 08/09/2011 URINE CULTURE/ COLONY COUNT CPT-4: 79269 07/03/2011 URINE CULTURE/ COLONY COUNT CPT-4: 66340 06/04/2011 THER/PROPH/DIAG INJ SC/IM CPT-4: 40022 05/03/2011 METHYLPREDNISOLONE 40 MG INJ CPT-4: J1030 05/03/2011 TRIAMCINOLONE ACET INJ NOS CPT-4: J3301 05/03/2011 URINALYSIS NONAUTO W/O SCOPE CPT-4: 07326 01/24/2011 URINE CULTURE/ COLONY COUNT CPT-4: 95669 01/24/2011 FLUZONE, 5ML (Medicare) CPT-4: Q2038 01/02/2011 ADMIN INFLUENZA VIRUS VAC CPT-4: G0008 01/02/2011 ASSAY, GLUCOSE, BLOOD QUANT CPT-4: 66582 12/07/2010 URINE CULTURE/ COLONY COUNT CPT-4: 56743 11/02/2010 THER/PROPH/DIAG INJ SC/IM CPT-4: 95242 10/18/2010 METHYLPREDNISOLONE 40 MG INJ CPT-4: J1030 10/18/2010 TRIAMCINOLONE ACET INJ NOS CPT-4: J3301 10/18/2010 TRIAMCINOLONE ACET INJ NOS CPT-4: J3301 05/11/2010 METHYLPREDNISOLONE 40 MG INJ CPT-4: J1030 05/11/2010 THER/PROPH/DIAG INJ SC/IM CPT-4: 70851 05/11/2010 TRIAMCINOLONE ACET INJ NOS CPT-4: J3301 02/09/2010 METHYLPREDNISOLONE 40 MG INJ CPT-4: J1030 02/09/2010 THER/PROPH/DIAG INJ SC/IM CPT-4: 75750 02/09/2010 SERVICE REQUIRED FOR PMD CPT-4: G0372 02/09/2010 FLU VACCINE 3 YRS & > IM UP 64 CPT-4: 96754 0 PNEUMOCOCCAL VACC 23 RANDALL IM CPT-4: 89252 12/07/2009 ADMIN INFLUENZA VIRUS VAC CPT-4: G0008 12/07/2009 ADMIN PNEUMOCOCCAL VACCINE CPT-4: G0009 12/07/2009 TRIAMCINOLONE ACET INJ NOS CPT-4: J3301 05/26/2009 THER/PROPH/DIAG INJ SC/IM CPT-4: 27189 05/26/2009 METHYLPREDNISOLONE 80 MG INJ CPT-4: J1040 [...] 1: 114/72 Code: 8480-6 BMI: 37.8 Code: 91558-9 Heart Rate 1: 72 bpm Height: 5'3" [...] 1: 106/68 Code: 8480-6 BMI: 35.7 Code: 64261-3 Heart Rate 1: 72 bpm Height: 5'4" Respiratory Rate: 20 bpm SpO2: 98% Tempera ture: 36.7 (C) / 98.0 (F) Weight: 208 lbs 04/16/2018 Blood Pressure 1: 132/82 Code: 8480-6 BMI: 37.9 Code: 45830-9 Heart Rate 1: 72 bpm Height: 5'4" Respiratory Rate: 20 bpm SpO2: 96% Tempera ture: 37.1 (C) / 98.8 (F) Weight: 221 lbs 04/01/2018 Blood Pressure 1: 150/90 Code: 8480-6 Heart Rate 1: 72 bpm Respiratory Rate: 22 bpm SpO2: 95% Temperature: 36.4 (C) / 97.6 (F) We ight: 216 lbs 03/06/2018 Blood Pressure 1: 126/78 Code: 8480-6 BMI: 37.4 Code: 06899-2 Heart Rate 1: 68 bpm Height: 5'4" [...] ight: 222 lbs 12/25/2017 BMI: 37.8 Code: 68048-1 Heart Rate 1: 76 bpm Height: 5 '4" Respiratory Rate: 20 bpm SpO2: 96% Temperature: 37.3 (C) / 99.2 (F) Weight: 220 lbs 12/17/2017 Blood Pressure 1: 132/78 Code: 8480-6 BMI: 37.2 Code: 28437-7 Heart Rate 1: 88 bpm Height: 5'4" Respiratory Rate: 20 bpm SpO2: 96% Tempera ture: 37.3 (C) / 99.2 (F) Weight: 217 lbs 10/30/2017 Blood Pressure 1: 114/68 Code: 8480-6 BMI: 36.4 Code: 10910-8 Heart Rate 1: 72 bpm Height: 5'4" Respiratory Rate: 22 bpm SpO2: 96% Tempera ture: 36.8 (C) / 98.2 (F) Weight: 212 lbs 10/23/2017 Blood Pressure 1: 124/78 Code: 8480-6 Heart Rate 1: 72 bpm Respiratory Rate: 24 bpm SpO2: 94% Temperature: 36.6 (C) / 97.9 (F) We ight: 212 lbs 09/17/2017 Blood Pressure 1: 128/82 Code: 8480-6 BMI: 37.4 Code: 97056-0 Heart Rate 1: 72 bpm Height: 5'4" Respiratory Rate: 20 bpm SpO2: 96% Tempera ture: 37.0 (C) / 98.6 (F) Weight: 218 lbs 07/19/2017 Blood Pressure 1: 136/84 Code: 8480-6 BMI: 36.6 Code: 56449-0 Heart Rate 1: 88 bpm Height: 5'4" Respiratory Rate: 20 bpm SpO2: 97% Tempera ture: 36.7 (C) / 98.0 (F) Weight: 213 lbs 05/29/2017 Blood Pressure 1: 136/82 Code: 8480-6 BMI: 36.7 Code: 67300-8 Heart Rate 1: 72 bpm Height: 5'4" Respiratory Rate: 20 bpm SpO2: 97% Tempera ture: 36.9 (C) / 98.4 (F) Weight: 214 lbs 05/07/2017 Blood Pressure 1: 122/80 Code: 8480-6 BMI: 37.1 Code: 86129-4 Heart Rate 1: 80 bpm Height: 5'4" Respiratory Rate: 24 bpm SpO2: 96% Tempera ture: 36.1 (C) / 97.0 (F) Weight: 216 lbs 03/18/2017 BMI: 36.7 Code: 07917-3 Heart Rate 1: 80 bpm Height: 5 '4" Respiratory Rate: 22 bpm SpO2: 95% Temperature: 36.9 (C) / 98.4 (F) Weight: 214 lbs 02/27/2017 Blood Pressure 1: 146/94 Code: 8480-6 BMI: 36.6 Code: 26649-0 Heart Rate 1: 76 bpm Height: 5'4" Respiratory Rate: 22 bpm SpO2: 97% Tempera ture: 36.6 (C) / 97.9 (F) Weight: 213 lbs 02/22/2017 Blood Pressure 1: 126/90 Code: 8480-6 BMI: 36.4 Code: 17663-6 Heart Rate 1: 84 bpm Height: 5'4" Respiratory Rate: 22 bpm SpO2: 95% Tempera ture: 36.9 (C) / 98.4 (F) Weight: 212 lbs 01/23/2017 Blood Pressure 1: 146/82 Code: 8480-6 BMI: 37.6 Code: 13043-4 Heart Rate 1: 96 bpm Height: 5'4" Respiratory Rate: 20 bpm SpO2: 96% Tempera ture: 36.9 (C) / 98.4 (F) Weight: 219 lbs 12/20/2016 Blood Pressure 1: 126/70 Code: 8480-6 BMI: 37.2 Code: 16503-8 Heart Rate 1: 76 bpm Height: 5'4" Respiratory Rate: 22 bpm SpO2: 95% Tempera ture: 36.6 (C) / 97.8 (F) Weight: 217 lbs 10/08/2016 Blood Pressure 1: 128/82 Code: 8480-6 BMI: 36.9 Code: 48456-3 Heart Rate 1: 76 bpm Height: 5'4" Respiratory Rate: 20 bpm SpO2: 95% Tempera ture: 37.0 (C) / 98.6 (F) Weight: 215 lbs 09/19/2016 Blood Pressure 1: 144/78 Code: 8480-6 BMI: 37.8 Code: 44041-3 Heart Rate 1: 76 bpm Height: 5'4" Respiratory Rate: 22 bpm SpO2: 95% Tempera ture: 37.0 (C) / 98.6 (F) Weight: 220 lbs 08/20/2016 Blood Pressure 1: 140/86 Code: 8480-6 BMI: 37.4 Code: 92229-6 Heart Rate 1: 80 bpm Height: 5'4" Respiratory Rate: 20 bpm SpO2: 95% Tempera ture: 36.9 (C) / 98.4 (F) Weight: 218 lbs 06/19/2016 Blood Pressure 1: 124/78 Code: 8480-6 BMI: 37.8 Code: 18507-9 Heart Rate 1: 74 bpm Height: 5'4" Respiratory Rate: 24 bpm SpO2: 96% Tempera ture: 36.9 (C) / 98.4 (F) Weight: 220 lbs 06/04/2016 Blood Pressure 1: 124/78 Code: 8480-6 BMI: 38.8 Code: 91202-8 Heart Rate 1: 72 bpm Height: 5'4" Respiratory Rate: 24 bpm SpO2: 95% Tempera ture: 36.8 (C) / 98.2 (F) Weight: 226 lbs 05/02/2016 Blood Pressure 1: 136/90 Code: 8480-6 BMI: 37.6 Code: 89892-6 Heart Rate 1: 72 bpm Height: 5'4" Respiratory Rate: 24 bpm SpO2: 96% Tempera ture: 36.9 (C) / 98.4 (F) Weight: 219 lbs 04/03/2016 Blood Pressure 1: 126/78 Code: 8480-6 BMI: 38.1 Code: 60880-1 Heart Rate 1: 72 bpm Height: 5'4" Respiratory Rate: 22 bpm SpO2: 94% Tempera ture: 36.9 (C) / 98.4 (F) Weight: 222 lbs 02/29/2016 Blood Pressure 1: 132/78 Code: 8480-6 Heart Rate 1: 78 bpm Height: Respiratory Rate: 24 bpm SpO2: 95% Temperature: 36.4 (C) / 97.6 (F) We ight: 02/02/2016 Blood Pressure 1: 124/78 Code: 8480-6 BMI: 37.6 Code: 56038-7 Heart Rate 1: 76 bpm Height: 5'4" Respiratory Rate: 20 bpm SpO2: 95% Tempera ture: 36.8 (C) / 98.2 (F) Weight: 219 lbs 01/05/2016 Blood Pressure 1: 126/70 Code: 8480-6 BMI: 37.1 Code: 03291-4 Heart Rate 1: 76 bpm Height: 5'4" Respiratory Rate: 20 bpm Temperature: 36 .6 (C) / 97.8 (F) Weight: 216 lbs 12/05/2015 Blood Pressure 1: 126/72 Code: 8480-6 BMI: 36.9 Code: 98686-9 Heart Rate 1: 92 bpm Height: 5'4" Respiratory Rate: 20 bpm Temperature: 36 .7 (C) / 98.1 (F) Weight: 215 lbs 10/26/2015 Blood Pressure 1: 142/80 Code: 8480-6 BMI: 36.4 Code: 84661-7 Heart Rate 1: 82 bpm Height: 5'4" Respiratory Rate: 24 bpm SpO2: 92% Tempera ture: 35.9 (C) / 96.7 (F) Weight: 212 lbs 10/05/2015 Blood Pressure 1: 136/82 Code: 8480-6 Heart Rate 1: 80 bpm Respiratory Rate: 18 bpm SpO2: 98% Temperature: 35.7 (C) / 96.3 (F) We ight: 214 lbs 09/15/2015 Blood Pressure 1: 116/80 Code: 8480-6 BMI: 34.6 Code: 19677-0 Heart Rate 1: 76 bpm Height: 5'6" Respiratory Rate: 20 bpm Temperature: 36 .6 (C) / 97.9 (F) Weight: 211 lbs 08/24/2015 Blood Pressure 1: 124/80 Code: 8480-6 BMI: 34.1 Code: 86805-7 Heart Rate 1: 68 bpm Height: 5'6" Respiratory Rate: 20 bpm Temperature: 36 .8 (C) / 98.3 (F) Weight: 208 lbs 07/05/2015 Blood Pressure 1: 114/78 Code: 8480-6 BMI: 33.9 Code: 42033-2 Heart Rate 1: 80 bpm Height: 5'6" Respiratory Rate: 20 bpm Temperature: 36 .6 (C) / 97.9 (F) Weight: 207 lbs 06/06/2015 Blood Pressure 1: 122/78 Code: 8480-6 BMI: 34.1 Code: 95539-0 Heart Rate 1: 76 bpm Height: 5'6" Respiratory Rate: 24 bpm SpO2: 96% Tempera ture: 36.4 (C) / 97.6 (F) Weight: 208 lbs 05/23/2015 Blood Pressure 1: 124/78 Code: 8480-6 Heart Rate 1: 76 bpm Respiratory Rate: 24 bpm SpO2: 93% Temperature: 36.8 (C) / 98.2 (F) We ight: 212 lbs 05/05/2015 Blood Pressure 1: 136/80 Code: 8480-6 BMI: 35.4 Code: 00588-8 Heart Rate 1: 76 bpm Height: 5'6" Respiratory Rate: 28 bpm Temperature: 37 .0 (C) / 98.6 (F) Weight: 216 lbs 03/30/2015 Blood Pressure 1: 132/86 Code: 8480-6 BMI: 35.2 Code: 43059-6 Heart Rate 1: 84 bpm Height: 5'6" Respiratory Rate: 24 bpm Temperature: 36 .7 (C) / 98.0 (F) Weight: 215 lbs 02/03/2015 Blood Pressure 1: 122/74 Code: 8480-6 BMI: 35.7 Code: 90054-6 Heart Rate 1: 84 bpm Height: 5'6" Respiratory Rate: 20 bpm Temperature: 36 .9 (C) / 98.5 (F) Weight: 218 lbs 12/29/2014 Blood Pressure 1: 132/80 Code: 8480-6 BMI: 35.1 Code: 11044-9 Heart Rate 1: 80 bpm Height: 5'6" Respiratory Rate: 20 bpm Temperature: 36 .6 (C) / 97.8 (F) Weight: 214 lbs 09/02/2014 Blood Pressure 1: 128/92 Code: 8480-6 BMI: 34.7 Code: 46661-5 Heart Rate 1: 84 bpm Height: 5'6" Respiratory Rate: 26 bpm Temperature: 36 .8 (C) / 98.2 (F) Weight: 212 lbs 08/25/2014 Blood Pressure 1: 124/80 Code: 8480-6 BMI: 34.7 Code: 91767-1 Heart Rate 1: 78 bpm Height: 5'6" Respiratory Rate: 22 bpm SpO2: 97% Tempera ture: 36.6 (C) / 97.8 (F) Weight: 212 lbs 04/01/2014 Blood Pressure 1: 142/84 Code: 8480-6 BMI: 34.4 Code: 04235-9 Heart Rate 1: 74 bpm Height: 5'5" Respiratory Rate: 20 bpm Temperature: 36 .4 (C) / 97.6 (F) Weight: 207 lbs 03/16/2014 Blood Pressure 1: 142/90 Code: 8480-6 BMI: 34.6 Code: 02851-2 Heart Rate 1: 76 bpm Height: 5'5" Respiratory Rate: 24 bpm Temperature: 36 .5 (C) / 97.7 (F) Weight: 208 lbs 03/09/2014 Blood Pressure 1: 116/70 Code: 8480-6 BMI: 35.3 Code: 45793-4 Heart Rate 1: 72 bpm Height: 5'5" [...] 1: 128/86 Code: 8480-6 BMI: 34.3 Code: 98096-8 Heart Rate 1: 84 bpm Height: 5'5" Respiratory Rate: 20 bpm Temperature: 36 .7 (C) / 98.0 (F) Weight: 206 lbs 12/23/2013 Blood Pressure 1: 122/70 Code: 8480-6 BMI: 34.3 Code: 17469-9 Heart Rate 1: 68 bpm Height: 5'5" Respiratory Rate: 20 bpm Temperature: 36 .8 (C) / 98.2 (F) Weight: 206 lbs 10/05/2013 Blood Pressure 1: 118/76 Code: 8480-6 BMI: 34.1 Code: 22497-5 Heart Rate 1: 68 bpm Height: 5'5" Respiratory Rate: 20 bpm SpO2: 98% Tempera ture: 36.6 (C) / 97.9 (F) Weight: 205 lbs 08/04/2013 Blood Pressure 1: 126/82 Code: 8480-6 BMI: 33.3 Code: 63800-8 Heart Rate 1: 76 bpm Height: 5'5" Respiratory Rate: 20 bpm Temperature: 36 .8 (C) / 98.2 (F) Weight: 200 lbs 07/03/2013 Blood Pressure 1: 124/82 Code: 8480-6 BMI: 33.3 Code: 73753-5 Heart Rate 1: 72 bpm Height: 5'5" Respiratory Rate: 22 bpm Temperature: 36 .1 (C) / 97.0 (F) Weight: 200 lbs 05/27/2013 Blood Pressure 1: 126/82 Code: 8480-6 Heart Rate 1: 74 bpm Respiratory Rate: 20 bpm Temperature: 36.0 (C) / 96.8 (F) Weight: 199 lbs 04/06/2013 Blood Pressure 1: 118/80 Code: 8480-6 BMI: 35.2 Code: 79146-8 Heart Rate 1: 80 bpm Height: 5'4" Respiratory Rate: 20 bpm Temperature: 37 .4 (C) / 99.3 (F) Weight: 205 lbs 11/10/2012 Blood Pressure 1: 128/82 Code: 8480-6 Heart Rate 1: 84 bpm Respiratory Rate: 20 bpm Temperature: 36.7 (C) / 98.0 (F) Weight: 199 lbs 09/02/2012 Blood Pressure 1: 116/82 Code: 8480-6 BMI: 34.2 Code: 81177-0 Heart Rate 1: 88 bpm Height: 5'4" Respiratory Rate: 22 bpm Temperature: 36 .6 (C) / 97.8 (F) Weight: 199 lbs 08/04/2012 Blood Pressure 1: 128/74 Code: 8480-6 BMI: 34.0 Code: 09427-8 Heart Rate 1: 92 bpm Height: 5'4" Respiratory Rate: 20 bpm Temperature: 36 .4 (C) / 97.5 (F) Weight: 198 lbs 07/21/2012 Blood Pressure 1: 124/86 Code: 8480-6 Heart Rate 1: 116 bpm Respiratory Rate: 24 bpm Temperature: 36.8 (C) / 98.2 (F) 07/02/2012 Blood Pressure 1: 116/88 Code: 8480-6 BMI: 33.6 Code: 25240-4 Heart Rate 1: 76 bpm Height: 5'4" Respiratory Rate: 20 bpm Temperature: 36 .8 (C) / 98.3 (F) Weight: 196 lbs 06/24/2012 Blood Pressure 1: 124/80 Code: 8480-6 BMI: 34.3 Code: 94951-4 Heart Rate 1: 72 bpm Height: 5'4" SpO2: 96% Temperature: 36.3 (C) / 97.3 (F) Weight: 200 lbs 05/20/2012 Blood Pressure 1: 116/88 Code: 8480-6 BMI: 33.8 Code: 31460-7 Heart Rate 1: 80 bpm Height: 5'4" Respiratory Rate: 22 bpm Temperature: 36 .9 (C) / 98.4 (F) Weight: 197 lbs 05/08/2012 Blood Pressure 1: 128/86 Code: 8480-6 BMI: 33.8 Code: 06431-9 Heart Rate 1: 76 bpm Height: 5'4" Respiratory Rate: 26 bpm SpO2: 95% Tempera ture: 36.1 (C) / 97.0 (F) Weight: 197 lbs 04/22/2012 Blood Pressure 1: 106/64 Code: 8480-6 BMI: 33.8 Code: 16844-6 Heart Rate 1: 70 bpm Height: 5'4" Temperature: 36.1 (C) / 97.0 (F) Weight: 197 lbs 02/13/2012 Blood Pressure 1: 126/82 Code: 8480-6 BMI: 34.7 Code: 25805-0 Heart Rate 1: 64 bpm Height: 5'4" Respiratory Rate: 20 bpm Temperature: 36 .6 (C) / 97.8 (F) Weight: 202 lbs 01/28/2012 Blood Pressure 1: 116/80 Code: 8480-6 BMI: 34.7 Code: 20738-1 Heart Rate 1: 76 bpm Height: 5'4" Respiratory Rate: 20 bpm Temperature: 36 .8 (C) / 98.3 (F) Weight: 202 lbs 12/26/2011 Blood Pressure 1: 132/82 Code: 8480-6 BMI: 36.0 Code: 57819-4 Heart Rate 1: 68 bpm Height: 5'4" Respiratory Rate: 22 bpm Temperature: 36 .7 (C) / 98.0 (F) Weight: 210 lbs 11/14/2011 Blood Pressure 1: 124/80 Code: 8480-6 BMI: 36.4 Code: 88885-5 Heart Rate 1: 76 bpm Height: 5'4" Respiratory Rate: 20 bpm Temperature: 36 .8 (C) / 98.2 (F) Weight: 212 lbs 09/12/2011 Blood Pressure 1: 108/74 Code: 8480-6 BMI: 37.1 Code: 33332-9 Heart Rate 1: 72 bpm Height: 5'4" Respiratory Rate: 20 bpm Temperature: 37 .0 (C) / 98.6 (F) Weight: 216 lbs 08/15/2011 Blood Pressure 1: 122/80 Code: 8480-6 BMI: 36.9 Code: 30370-6 Heart Rate 1: 76 bpm Height: 5'4" Respiratory Rate: 20 bpm Temperature: 36 .2 (C) / 97.1 (F) Weight: 215 lbs 08/09/2011 Blood Pressure 1: 112/78 Code: 8480-6 BMI: 36.9 Code: 81888-1 Heart Rate 1: 68 bpm Height: 5'4" Respiratory Rate: 20 bpm Temperature: 36 .7 (C) / 98.0 (F) Weight: 215 lbs 07/03/2011 Blood Pressure 1: 140/94 Code: 8480-6 BMI: 36.2 Code: 09094-0 Heart Rate 1: 68 bpm Height: 5'4" Temperature: 36.0 (C) / 96.8 (F) Weight: 211 lbs 06/04/2011 Blood Pressure 1: 124/70 Code: 8480-6 BMI: 36.7 Code: 50066-3 Heart Rate 1: 68 bpm Height: 5'4" Respiratory Rate: 20 bpm Temperature: 36 .6 (C) / 97.9 (F) Weight: 214 lbs 05/03/2011 Blood Pressure 1: 130/76 Code: 8480-6 BMI: 36.4 Code: 92959-5 Heart Rate 1: 74 bpm Height: 5'5" Temperature: 36.2 (C) / 97.2 (F) Weight: 219 lbs 04/05/2011 Blood Pressure 1: 124/86 Code: 8480-6 BMI: 35.9 Code: 90535-7 Heart Rate 1: 76 bpm Height: 5'6" Respiratory Rate: 22 bpm Temperature: 36 .3 (C) / 97.3 (F) Weight: 219 lbs 03/08/2011 Blood Pressure 1: 112/78 Code: 8480-6 BMI: 35.1 Code: 78215-5 Heart Rate 1: 80 bpm Height: 5'6" Respiratory Rate: 26 bpm Temperature: 36 .9 (C) / 98.4 (F) Weight: 214 lbs 01/24/2011 Blood Pressure 1: 110/82 Code: 8480-6 BMI: 35.6 Code: 89298-3 Heart Rate 1: 80 bpm Height: 5'6" Temperature: 36.1 (C) / 97.0 (F) Weight: 217 lbs 01/02/2011 Blood Pressure 1: 106/72 Code: 8480-6 BMI: 35.6 Code: 59567-3 Heart Rate 1: 76 bpm Height: 5'6" [...] 1: 120/74 Code: 8480-6 BMI: 35.9 Code: 24811-0 Heart Rate 1: 72 bpm Height: 5'5" Temperature: 36.3 (C) / 97.4 (F) Weight: 216 lbs 09/19/2010 Blood Pressure 1: 124/80 Code: 8480-6 BMI: 35.4 Code: 62561-6 Heart Rate 1: 76 bpm Height: 5'5" [...] 1: 122/78 Code: 8480-6 BMI: 37.4 Code: 03672-8 Heart Rate 1: 84 bpm Height: 5'5" [...] 10/30/2017 follow up 10/23/2017 Hospital [facility] Annual Checkup 09/17/2017 Wellness Physical fo r [...] up 03/01/2014 ER follow up 02/09/[address] [facility] gastroesophageal reflux 12/23/2013 painful urination [...] 1mo fwup follow up 03/08/2011 2wk hospital fw dizziness 01/24/2011 frequent falling follow [...] 1 month f/u follow up 12/07/2009 from group home [facility], done with PT--finished about 2wks [...] Inspiratory stridor[ICD10: R06.1] Diagnosis: Diarrhea[ICD10: R19.7] [facility]: 9921 3 07/06/2019 ([id number]) OFFICE/OUTPATIENT VISIT EST Diagnosis: Left leg swelling[ICD10: M79.89] Diagnosis: Dyspnea[ICD10: R06.00] [facility] CPT-[facility]: 9921 3 06/24/2019 ([id number]) OFFICE/OUTPATIENT VISIT EST Diagnosis: Acute bronchitis[ICD10: J20.9] Diagnosis: Colitis[ICD10: K52.9] Belia REID [facility] CPT-4: 34935 06/16/2019 ([id number]) OFFICE/OUTPATIENT VISIT EST Diagnosis: Diarrhea[ICD10: R19.7] Diagnosis: Abdominal bloating[ICD10: R14.0] Belia Reid [facility] CPT- 4: 48729 06/08/2019 ([id number]) OFFICE/OUTPATIENT VISIT EST Diagnosis: Acute febrile illness[ICD10: R50.9] Diagnosis: Colitis[ICD10: K52.9] Belia Reid [facility] CPT-4: 65066 05/26/2019 ([id number]) OFFICE/OUTPATIENT VISIT EST Diagnosis: Chronic obstructive pulmonary disease, unspecified[ICD10: J44.9] Diagnosis: Pulmonary fibrosis[ICD10: J84.10] Diagnosis: Intermittent stridor[ICD10: R06.1] Diagnosis: Muscle weakness[ICD10: M62.81] Belia REID [facility] CPT-4: 89832 05/13/2019 ([id number]) OFFICE/OUTPATIENT VISIT EST Diagnosis: Stridor[ICD10: R06.1] Diagnosis: COUGH[ICD10: R05] Belia REID [facility] CPT-4: 52981 05/06/2019 ([id number]) OFFICE/OUTPATIENT VISIT EST Diagnosis: Stridor[ICD10: R06.1] Diagnosis: Muscle, jerky movements (uncontrolled)[ICD10: G25.5] Belia REID [facility] CPT-4: 47653 04/29/2019 ([id number]) OFFICE/OUTPATIENT VISIT EST Diagnosis: Upper respiratory infection[ICD10: J06.9] Diagnosis: Flank pain[ICD10: R10.9] Diagnosis: Weight gain[ICD10: R63.5] Pattie Nortonimaldi BELIA AMBRIZ [facility] CPT-4: 64875 04/16/2019 ([id number]) OFFICE/OUTPATIENT VISIT EST Diagnosis: Generalized pruritus[ICD10: L29.9] Belia SMITH [facility] CPT-4: 37303 04/08/2019 ([id number]) OFFICE/OUTPATIENT VISIT EST Diagnosis: Acute bursitis of left shoulder[ICD10: M75.52] Diagnosis: Cervicalgia[ICD10: M54.2] Diagnosis: Chest wall pain[ICD10: R07.89] Belia SMITH [employer] CPT-4: 38741 01/22/2019 ([id number]) OFFICE/OUTPATIENT VISIT EST Diagnosis: Abdominal pain[ICD10: R10.9] Diagnosis: Pyelonephritis[ICD10: N12] Pattie DOMINGUEZ [facility] CPT-4: 44546 01/07/2019 ([id number]) OFFICE/OUTPATIENT VISIT EST Diagnosis: Low back pain[ICD10: M54.5] Diagnosis: Left lumbar radiculopathy[ICD10: M54.16] Diagnosis: Left flank pain[ICD10: R10.9] Diagnosis: Left lower quadrant pain[ICD10: R10.32] Diagnosis: FLU VACCINE[ICD10: Z23] Belia SMITH [employer] CPT-4: 85474 12/24/2018 ([id number]) OFFICE/OUTPATIENT VISIT EST Diagnosis: Migraine, unspecified, not intractable, without status migrainosus[ICD10: G43.909] Diagnosis: Fibromyalgia[ICD10: M79.7] Belia DOMINGUEZ [employer] CPT-4: 82397 11/20/2018 ([id number]) OFFICE/OUTPATIENT VISIT EST Diagnosis: Migraine, unspecified, intractable, without status migrainosus[ICD10: G43.919] Diagnosis: Acute sinusitis, unspecified[ICD10: J01.90] Pattie REID [employer] CPT-4: 75064 11/04/2018 ([id number]) OFFICE/OUTPATIENT VISIT EST Diagnosis: Pain in left wrist[ICD10: M25.532] Diagnosis: Other dorsalgia[ICD10: M54.89] Pattie REID DO [facility] CPT-4: 40531 09/08/2018 ([id number]) OFFICE/OUTPATIENT VISIT EST Diagnosis: Acute stress reaction[ICD10: F43.0] Diagnosis: Pruritus, unspecified[ICD10: L29.9] 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, 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] Belia REID DO [facility] CPT-4: 51469 08/20/2018 ([id number]) OFFICE/OUTPATIENT VISIT EST Diagnosis: Hypotension due to drugs[ICD10: I95.2] Diagnosis: Paroxysmal atrial fibrillation[ICD10: I48.0] Diagnosis: Localized edema[ICD10: R60.0] Belia REID DO [facility] CPT-4: 00912 06/19/2018 ([id number]) OFFICE/OUTPATIENT VISIT EST Diagnosis: Generalized hyperhidrosis[ICD10: R61] Diagnosis: Essential (primary) hypertension[ICD10: I10] Diagnosis: Supraventricular tachycardia[ICD10: I47.1] Belia REID DO [facility] CPT-4: 65791 06/09/2018 ([id number]) OFFICE/OUTPATIENT VISIT EST Diagnosis: Stridor[ICD10: R06.1] Diagnosis: Dependence on supplemental oxygen[ICD10: Z99.81] Diagnosis: Weakness[ICD10: R53.1] Diagnosis: Supraventricular tachycardia[ICD10: I47.1] Belia REID DO [facility] CPT-4: 83616 05/21/2018 ([id number]) OFFICE/OUTPATIENT VISIT EST Diagnosis: Cervical disc disorder with radiculopathy, unspecified cervical region[ICD10: M50.10] Belia REID DO [facility] CPT-4: 41737 04/16/2018 ([id number]) OFFICE/OUTPATIENT VISIT EST Diagnosis: Migraine, unspecified, intractable, without status migrainosus[ICD10: G43.919] Diagnosis: Fibromyalgia[ICD10: M79.7] Pattie DOMINGUEZ [facility] CPT-4: 41383 04/01/2018 ([id number]) NURSE/OUTPATIENT VISIT EST Diagnosis: Hematuria, unspecified[ICD10: R31.9] Diagnosis: Dysuria[ICD10: R30.0] Belia REID DO [facility] CPT-4: 99679 03/17/2018 ([id number]) OFFICE/OUTPATIENT VISIT EST Diagnosis: Erythema intertrigo[ICD10: L30.4] Diagnosis: Chronic obstructive pulmonary disease with (acute) exacerbation[ICD10: J44.1] Diagnosis: Type 2 diabetes mellitus with hyperglycemia[ICD10: E11.65] Belia REID DO [facility] CPT-4: 08480 03/06/2018 ([id number]) OFFICE/OUTPATIENT VISIT EST Diagnosis: Cervicalgia[ICD10: M54.2] Pattie AMBRIZ DO [facility] CPT-4: 30861 02/05/2018 ([id number]) OFFICE/OUTPATIENT VISIT EST Diagnosis: Candidiasis of skin and nail[ICD10: B37.2] Diagnosis: Cervicalgia[ICD10: M54.2] Pattie AMBRIZ DO [facility] CPT-4: 32436 01/20/2018 ([id number]) OFFICE/OUTPATIENT VISIT EST Diagnosis: Pain in thoracic spine[ICD10: M54.6] Diagnosis: Radiculopathy, thoracic region[ICD10: M54.14] Belia REID DO [facility] CPT-4: 72826 12/25/2017 ([id number]) OFFICE/OUTPATIENT VISIT EST Diagnosis: Pain in thoracic spine[ICD10: M54.6] Diagnosis: Other muscle spasm[ICD10: M62.838] Diagnosis: FLU VACCINE[ICD10: Z23] Diagnosis: PNEUMOCOCCAL VACCINE[ICD10: Z23] Belia REID DO [facility] CPT-4: 88445 12/17/2017 ([id number]) OFFICE/OUTPATIENT VISIT EST Diagnosis: Chronic obstructive pulmonary disease with (acute) exacerbation[ICD10: J44.1] Belia REID DO [facility] CPT- 4: 11487 10/30/2017 ([id number]) OFFICE/OUTPATIENT VISIT EST Diagnosis: Chronic obstructive pulmonary disease with acute lower respiratory infection[ICD10: J44.0] Diagnosis: Mild intermittent asthma with (acute) exacerbation[ICD10: J45.21] Belia REID DO [facility] CPT-4: 93445 10/23/2017 ([id number]) NURSE/OUTPATIENT VISIT EST Diagnosis: Migraine, unspecified, not intractable, without status migrainosus[ICD10: G43.909] Belia REID DO [facility] CPT - 4: 25612 08/26/2017 ([id number]) OFFICE/OUTPATIENT VISIT EST Diagnosis: Urinary tract infection, site not specified[ICD10: N39.0] Diagnosis: Encounter for screening for osteoporosis[ICD10: Z13.820] Diagnosis: Encounter for screening mammogram for malignant neoplasm of breast[ICD10: Z12.31] Diagnosis: Acute bronchitis, unspecified[ICD10: J20.9] Pattie REID DO [facility] CPT-4: 12025 07/19/2017 ([id number]) OFFICE/OUTPATIENT VISIT EST Diagnosis: Rash and other nonspecific skin eruption[ICD10: R21] Pattie REID DO [facility] CPT-4: 67521 05/29/2017 ([id number]) OFFICE/OUTPATIENT VISIT EST Diagnosis: Diarrhea, unspecified[ICD10: R19.7] Diagnosis: Tinea corporis[ICD10: B35.4] Diagnosis: Tinea cruris[ICD10: B35.6] Diagnosis: Migraine, unspecified, not intractable, without status migrainosus[ICD10: G43.909] Belia REID DO [facility] CPT - 4: 95407 05/07/2017 ([id number]) OFFICE/OUTPATIENT VISIT EST Diagnosis: Stridor[ICD10: R06.1] Diagnosis: Chronic obstructive pulmonary disease with (acute) exacerbation[ICD10: J44.1] Belia REID DO [facility] CPT- 4: 86403 03/18/2017 ([id number]) OFFICE/OUTPATIENT VISIT EST Diagnosis: Type 2 diabetes mellitus with hyperglycemia[ICD10: E11.65] Belia REID [facility] CPT-4: 04611 02/27/2017 OFFICE/OUTPATIENT VISIT EST Diagnosis: Type 2 diabetes mellitus with hyperglycemia[ICD10: E11.65] Pattie REID [facility] CPT-4: 83769 02/22/2017 ([id number]) OFFICE/OUTPATIENT VISIT EST Diagnosis: Urinary tract infection, site not specified[ICD10: N39.0] Diagnosis: Pneumonia, unspecified organism[ICD10: J18.9] Diagnosis: Type 2 diabetes mellitus with hyperglycemia[ICD10: E11.65] Belia REID [facility] CPT-4: 83238 01/23/2017 ([id number]) OFFICE/OUTPATIENT VISIT EST Diagnosis: Type 2 diabetes mellitus with hyperglycemia[ICD10: E11.65] Diagnosis: Localized edema[ICD10: R60.0] Diagnosis: PNEUMOCOCCAL VACCINE[ICD10: Z23] Diagnosis: FLU VACCINE[ICD10: Z23] Belia [facility]ICK [facility] CPT-4: 54100 12/20/2016 OFFICE/OUTPATIENT VISIT EST Diagnosis: Pain in thoracic spine[ICD10: M54.6] Diagnosis: Low back pain[ICD10: M54.5] Diagnosis: Cervicalgia[ICD10: M54.2] Diagnosis: Cough[ICD10: R05] Celeste Ferreira BELIA REID [employer] [facility] CPT-4: 95224 10/08/2016 ([id number]) OFFICE/OUTPATIENT VISIT EST Diagnosis: Primary insomnia[ICD10: F51.01] Diagnosis: Migraine, unspecified, not intractable, without status migrainosus[ICD10: G43.909] Diagnosis: Type 2 diabetes mellitus with hyperglycemia[ICD10: E11.65] Belia REID [facility] CPT-4: 79804 09/19/2016 ([id number]) OFFICE/OUTPATIENT VISIT EST Diagnosis: Migraine, unspecified, not intractable, without status migrainosus[ICD10: G43.909] Diagnosis: Generalized abdominal pain[ICD10: R10.84] Diagnosis: Cough[ICD10: R05] Belia REID DO [facility] CPT-4: 16138 08/20/2016 ([id number]) OFFICE/OUTPATIENT VISIT EST Diagnosis: Chronic obstructive pulmonary disease, unspecified[ICD10: J44.9] Diagnosis: Stridor[ICD10: R06.1] Belia REID DO [facility] CPT-4: 02372 06/19/2016 ([id number]) OFFICE/OUTPATIENT VISIT EST Diagnosis: Chronic obstructive pulmonary disease, unspecified[ICD10: J44.9] Diagnosis: Personal history of urinary (tract) infections[ICD10: Z87.440] Belia REID DO [facility] CPT-4: 74777 06/04/2016 ([id number]) OFFICE/OUTPATIENT VISIT EST Diagnosis: Stridor[ICD10: R06.1] Diagnosis: Chronic obstructive pulmonary disease with acute lower respiratory infection[ICD10: J44.0] Diagnosis: Other specified diseases of intestine[ICD10: K63.89] Diagnosis: Cystitis, unspecified without hematuria[ICD10: N30.90] Belia REID DO [facility] CPT-4: 99464 05/02/2016 ([id number]) OFFICE/OUTPATIENT VISIT EST Diagnosis: Fibromyalgia[ICD10: M79.7] Diagnosis: Urinary tract infection, site not specified[ICD10: N39.0] Belia REID DO [facility] CPT-4: 81596 04/03/2016 ([id number]) OFFICE/OUTPATIENT VISIT EST Diagnosis: Unspecified asthma, uncomplicated[ICD10: J45.909] Diagnosis: Cough[ICD10: R05] LidiaClarita REID DO [facility] T-4: 64729 02/29/2016 ([id number]) OFFICE/OUTPATIENT VISIT EST Diagnosis: Migraine, unspecified, intractable, without status migrainosus[ICD10: G43.919] Diagnosis: Urinary tract infection, site not specified[ICD10: N39.0] Belia REID DO [facility] CPT-4: 29520 02/02/2016 ([id number]) OFFICE/OUTPATIENT VISIT EST Diagnosis: Urinary tract infection, site not specified[ICD10: N39.0] Diagnosis: Unspecified abdominal pain[ICD10: R10.9] Diagnosis: Pain in thoracic spine[ICD10: M54.6] Diagnosis: Type 2 diabetes mellitus with diabetic neuropathic arthropathy[ICD10: E11.610] Belia BRUNSON BushraMayda ANUSHKA [employer] [facility] CPT-4: 35052 12/05/2015 ([id number]) OFFICE/OUTPATIENT VISIT EST Diagnosis: Chronic obstructive pulmonary disease with (acute) exacerbation[ICD10: J44.1] Diagnosis: Migraine, unspecified, not intractable, without status migrainosus[ICD10: G43.909] Lidiajose de jesus BRUNSON BushraMayda ANUSHKA [employer] CPT -4: 83015 10/26/2015 ([id number]) OFFICE/OUTPATIENT VISIT EST Diagnosis: Hematuria, unspecified[ICD10: R31.9] Diagnosis: Urinary tract infection, site not specified[ICD10: N39.0] [facility] [employer] [facility] CPT-4: 84734 10/05/2015 OFFICE/OUTPATIENT VISIT EST Diagnosis: Chronic obstructive pulmonary disease, unspecified[ICD10: J44.9] Diagnosis: Muscle weakness (generalized)[ICD10: M62.81] Diagnosis: Polyneuropathy, unspecified[ICD10: G62.9] Diagnosis: Other intervertebral disc degeneration, 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] Diagnosis: Fibromyalgia[ICD10: M79.7] Belia Shi RAND DOMINGUEZ [employer] CPT-4: 80883 09/15/2015 ([id number]) OFFICE/OUTPATIENT VISIT EST Diagnosis: Disorientation, unspecified[ICD10: R41.0] Diagnosis: Headache[ICD10: R51] Diagnosis: Paresthesia of skin[ICD10: R20.2] Lidia Paredes BushraMayda LUIS [employer] [facility] CPT-4: 93261 08/24/2015 ([id number]) OFFICE/OUTPATIENT VISIT EST Diagnosis: Type 2 diabetes mellitus with hyperglycemia[ICD10: E11.65] Diagnosis: Chronic obstructive pulmonary disease with acute lower respiratory infection[ICD10: J44.0] Belia BRUNSON BushraMayda LUIS [employer] CPT-4: 87793 07/05/2015 ([id number]) OFFICE/OUTPATIENT VISIT EST Diagnosis: Mild intermittent asthma with (acute) exacerbation[ICD10: J45.21] Diagnosis: Chronic obstructive pulmonary disease, unspecified[ICD10: J44.9] Belia REID [facility] CPT-4: 78554 06/06/2015 ([id number]) OFFICE/OUTPATIENT VISIT EST Diagnosis: Chronic obstructive pulmonary disease with (acute) exacerbation[ICD10: J44.1] Lidia REID [facility] CPT- 4: 61534 05/23/2015 ([id number]) OFFICE/OUTPATIENT VISIT EST Diagnosis: Type 2 diabetes mellitus with hyperglycemia[ICD10: E11.65] Diagnosis: Functional dyspepsia[ICD10: K30] Belia REID [facility] CPT-4: 19243 05/05/2015 ([id number]) OFFICE/OUTPATIENT VISIT EST Diagnosis: Type 2 diabetes mellitus with hyperglycemia[ICD10: E11.65] Diagnosis: Glycosuria[ICD10: R81] Diagnosis: Urinary tract infection, site not specified[ICD10: N39.0] Belia REID [facility] CPT-4: 21337 03/30/2015 ([id number]) OFFICE/OUTPATIENT VISIT EST Diagnosis: Generalized abdominal pain[ICD10: R10.84] Diagnosis: Diarrhea, unspecified[ICD10: R19.7] Diagnosis: Urinary tract infection, site not specified[ICD10: N39.0] Diagnosis: Gastro-esophageal reflux disease without esophagitis[ICD10: K21.9] Belia REID 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 CPT-4: 26970 09/02/2014 ([id number]) OFFICE/OUTPATIENT VISIT EST Diagnosis: Cervical radiculopathy[ICD9: 723.4] Diagnosis: Cervicalgia[ICD9: 723.1] Diagnosis: Degenerative disc disease, cervical[ICD9: 722.4] 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I[ICD9: 250.00] Belia Humphriesisabellaannie BELIA BushraMayda ANUSHKA [facility] CPT-4: 59580 04/01/2014 OFFICE/OUTPATIENT VISIT EST Diagnosis: Reactive airway disease[ICD9: 493.90] Belia HSUPAUL LUBNA TomlinsonMayda [facility]: 22264 03/16/2014 ([id number]) OFFICE/OUTPATIENT VISIT EST Diagnosis: BRONCHITIS, ACUTE[ICD9: 466.0] Diagnosis: Reactive airway disease[ICD9: 493.90] Belia Humphriesisabellaannie MINAL LUBNA BushraMayda LUIS [employer] [facility] CPT-4: 47101 03/09/2014 OFFICE/OUTPATIENT VISIT EST Diagnosis: BRONCHITIS, ACUTE[ICD9: 466.0] Diagnosis: WHEEZING[ICD9: 786.07] Huong De LunaFidepool CORNELLLINE Yuridia Peguero [employer] [facility] CPT-4: 12614 03/03/2014 OFFICE/OUTPATIENT VISIT EST Diagnosis: BRONCHITIS, ACUTE[ICD9: 466.0] Diagnosis: WHEEZING[ICD9: 786.07] Huong De LunaFidepool CORNELLLINE BushraMayda RALF Pegureo [facility] CPT-4: 59740 03/01/2014 ([id number]) OFFICE/OUTPATIENT VISIT EST Diagnosis: GERD[ICD9: 530.81] Diagnosis: ARTHRALGIA-MULTIPLE SITES[ICD9: 719.49] Diagnosis: LUMB/LUMBOSAC DISC DEGEN[ICD9: 722.52] Diagnosis: - I - FIBROMYALGIA[ICD9: 729.1] Belia BRUNSON BushraMayda [facility] CPT-[facility]: 37902 02/09/2014 ([id number]) OFFICE/OUTPATIENT VISIT EST Diagnosis: Peptic ulcer disease[ICD9: 533.90] Diagnosis: RESTLESS LEGS SYNDROME[ICD9: 333.94] Diagnosis: Neuropathy[ICD9: 355.9] Belia FREDERICK DO [facility] CPT-4: 24496 12/23/2013 ([id number]) OFFICE/OUTPATIENT VISIT EST Diagnosis: URINARY TRACT INFECTION[ICD9: 599.0] Belia REID DO [facility] CPT-4: 61140 10/30/2013 ([id number]) OFFICE/OUTPATIENT VISIT EST Diagnosis: Flank pain[ICD9: 789.00] Belia MARTINEZ [facility] CPT-4: 68453 10/21/2013 ([id number]) OFFICE/OUTPATIENT VISIT EST Diagnosis: INFLAMED SEBORR KERATOS[ICD9: 702.11] Diagnosis: Brachioradial pruritus[ICD9: 698.9] Diagnosis: ASTHMA NOS[ICD9: 493.90] Belia MARTINEZ [facility] CPT-4: 44407 10/05/2013 ([id number]) OFFICE/OUTPATIENT VISIT EST Diagnosis: HYPERTENSION[ICD9: 401.9] Diagnosis: - I - FIBROMYALGIA[ICD9: 729.1] Diagnosis: DIZZINESS/VERTIGO[ICD9: 780.4] Diagnosis: MIGRAINE NOS/NOT INTRCBL[ICD9: 346.90] Diagnosis: Diabetic peripheral neuropathy[ICD9: 250.60] Diagnosis: Flank pain[ICD9: 789.00] Belia MARTINEZ [facility] CPT-4: 06193 08/04/2013 ([id number]) OFFICE/OUTPATIENT VISIT EST Diagnosis: ALLERGIC RHINITIS[ICD9: 477.9] Belia REID DO [facility] CPT-4: 01381 07/13/2013 OFFICE/OUTPATIENT VISIT EST Diagnosis: URINARY TRACT INFECTION[ICD9: 599.0] Huong Osborne KRAIG REID DO [facility] CPT-4: 29892 07/03/2013 OFFICE/OUTPATIENT VISIT EST Diagnosis: HYPERTENSION[ICD9: 401.9] Diagnosis: URINARY TRACT INFECTION[ICD9: 599.0] Diagnosis: BACKACHE[ICD9: 724.5] Diagnosis: URINARY INCONTINENCE[ICD9: 788.30] Huong De LunaTodjanneth ARACELISSONIA MARIE Yuridia REID [facility] CPT-4: 60936 05/27/2013 ([id number]) OFFICE/OUTPATIENT VISIT EST Diagnosis: Flank pain[ICD9: 789.00] Belia Humphriesisabellaannie CORNELLBELIA Yuridia POLOE [facility] CPT-4: 12203 05/25/2013 ([id number]) OFFICE/OUTPATIENT VISIT EST Diagnosis: B-COMPLEX DEFIC NEC[ICD9: 266.2] Belia CORNELLLINE Yuridia REID [facility] CPT-4: 51925 05/04/2013 ([id number]) OFFICE/OUTPATIENT VISIT EST Diagnosis: ALLERGIC RHINITIS[ICD9: 477.9] Diagnosis: Vitamin B12 deficiency[ICD9: 266.2] Belia Zacharynilson CORNELLAbigail DONNA Yuridia [facility]: 67295 04/17/2013 ([id number]) OFFICE/OUTPATIENT VISIT EST 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I[ICD9: 250.00] Diagnosis: URINARY TRACT INFECTION[ICD9: 599.0] Diagnosis: DIZZINESS/VERTIGO[ICD9: 780.4] Diagnosis: DIARRHEA[ICD9: 787.91] Belia Humphriesisabellaannie CORNELLBELIA Yuridia Peguero [facility] CPT-4: 45641 04/06/2013 ([id number]) OFFICE/OUTPATIENT VISIT EST Diagnosis: URINARY TRACT INFECTION[ICD9: 599.0] Diagnosis: URINARY RETENTION[ICD9: 788.20] Belia Humphriesisabellaannie REID [facility] CPT-4: 73191 11/10/2012 ([id number]) OFFICE/OUTPATIENT VISIT EST Diagnosis: TACHYCARDIA[ICD9: 785.0] Diagnosis: SYNCOPE AND COLLAPSE[ICD9: 780.2] Diagnosis: CONSCIOUSNS ALTERAT NEC[ICD9: 780.09] Belia Zacharyisabellaannie MINAL CALVO Yuridia REID [facility] CPT-4: 17143 09/02/2012 OFFICE/OUTPATIENT VISIT EST Diagnosis: TACHYCARDIA[ICD9: 785.0] Diagnosis: SYNCOPE AND COLLAPSE[ICD9: 780.2] Belia REID [employer] [facility] CPT-4: 31115 08/04/2012 ([id number]) OFFICE/OUTPATIENT VISIT EST Diagnosis: Loss of consciousness[ICD9: 780.09] Diagnosis: Tachycardia[ICD9: 785.0] Diagnosis: MALAISE AND FATIGUE[ICD9: 780.79] Belia REID [employer] [facility] CPT-4: 18611 07/21/2012 ([id number]) OFFICE/OUTPATIENT VISIT EST Diagnosis: BRONCHITIS, ACUTE[ICD9: 466.0] Diagnosis: ASTHMA NOS[ICD9: 493.90] Belia CORNELLLINE Yuridia POOLE [facility] CPT-4: 35384 07/02/2012 ([id number]) OFFICE/OUTPATIENT VISIT EST Diagnosis: CEPHALGIA[ICD9: 784.0] Belia Humphriesisabellaannie CORNELLBELIA BushraMayda RALF Peguero [employer] [facility] CPT-4: 49039 06/25/2012 ([id number]) OFFICE/OUTPATIENT VISIT EST Diagnosis: GERD[ICD9: 530.81] Diagnosis: DIARRHEA[ICD9: 787.91] Diagnosis: URINARY TRACT INFECTION[ICD9: 599.0] Diagnosis: ASTHMA NOS[ICD9: 493.90] Diagnosis: ALLERGIC RHINITIS[ICD9: 477.9] Belia REID [employer] [facility] CPT-4: 11214 06/24/2012 ([id number]) OFFICE/OUTPATIENT VISIT EST Diagnosis: MIGRAINE NOS/NOT INTRCBL[ICD9: 346.90] Diagnosis: TREMOR NEC[ICD9: 333.1] Diagnosis: CHRONIC PAIN SYNDROME[ICD9: 338.4] Belia CORNELLKIMI SALAZAR Yuridia REID [employer] [facility] CPT-4: 45822 05/20/2012 ([id number]) OFFICE/OUTPATIENT VISIT EST Diagnosis: DIZZINESS/VERTIGO[ICD9: 780.4] Diagnosis: PALPITATIONS[ICD9: 785.1] Diagnosis: TREMOR NEC[ICD9: 333.1] Diagnosis: ANXIETY STATE NOS[ICD9: 300.00] Diagnosis: POSTTRAUMATIC STRESS DISORDER[ICD9: 309.81] Belia CORNELLLINE Yuridia REID [employer] [facility] CPT-4: 75073 05/08/2012 ([id number]) OFFICE/OUTPATIENT VISIT EST Diagnosis: MIGRAINE NOS/NOT INTRCBL[ICD9: 346.90] Diagnosis: FIBROMYALGIA[ICD9: 729.1] Diagnosis: SYNCOPE AND COLLAPSE[ICD9: 780.2] Diagnosis: Diabetic peripheral neuropathy[ICD9: 250.60] Belia REID [employer] [facility] CPT-4: 02028 04/22/2012 OFFICE/OUTPATIENT VISIT EST Diagnosis: ROTATOR CUFF DIS NEC[ICD9: 726.19] Diagnosis: JOINT PAIN-SHLDER[ICD9: 719.41] Diagnosis: DYSPEPSIA[ICD9: 536.8] Belia Peguero [employer] [facility] CPT-4: 02865 02/13/2012 ([id number]) OFFICE/OUTPATIENT VISIT EST Diagnosis: MIGRAINE NOS/NOT INTRCBL[ICD9: 346.90] Diagnosis: GERD[ICD9: 530.81] Diagnosis: DYSPEPSIA[ICD9: 536.8] Belia Peguero [employer] [facility] CPT-4: 54216 01/28/2012 OFFICE/OUTPATIENT VISIT EST Diagnosis: CEPHALGIA[ICD9: 784.0] Diagnosis: MIGRAINE NOS/NOT INTRCBL[ICD9: 346.90] Diagnosis: GERD[ICD9: 530.81] Diagnosis: INSOMNIA NOS[ICD9: 780.52] Belia DOMINGUEZ [employer] [facility] CPT-4: 50992 12/26/2011 ([id number]) OFFICE/OUTPATIENT VISIT EST Diagnosis: CEPHALGIA[ICD9: 784.0] Diagnosis: MIGRAINE NOS/NOT INTRCBL[ICD9: 346.90] Diagnosis: MALAISE AND FATIGUE[ICD9: 780.79] Diagnosis: FIBROMYALGIA[ICD9: 729.1] Diagnosis: ALLERGIC RHINITIS[ICD9: 477.9] Belia REID [employer] CPT-4: 94958 11/14/2011 ([id number]) OFFICE/OUTPATIENT VISIT EST Diagnosis: MALAISE AND FATIGUE[ICD9: 780.79] Diagnosis: MUSCLE WEAKNESS-GENERAL[ICD9: 728.87] Diagnosis: MIGRAINE NOS/NOT INTRCBL[ICD9: 346.90] Diagnosis: JOINT PAIN-SHLDER[ICD9: 719.41] Belia REID [facility] CPT-4: 45873 09/12/2011 ([id number]) OFFICE/OUTPATIENT VISIT EST Diagnosis: CONCUSSION[ICD9: 850.9] Diagnosis: Ataxia[ICD9: 781.3] Diagnosis: DIZZINESS/VERTIGO[ICD9: 780.4] Belia REID [facility] CPT-4: 48940 08/15/2011 ([id number]) OFFICE/OUTPATIENT VISIT EST Diagnosis: THROMBOPHLEBITIS[ICD9: 451.9] Diagnosis: Subacromial bursitis[ICD9: 726.19] Diagnosis: ALLERGIC RHINITIS[ICD9: 477.9] Diagnosis: Lipoma[ICD9: 214.9] Belia REID [facility] CPT-4: 12586 08/09/2011 ([id number]) OFFICE/OUTPATIENT VISIT EST Diagnosis: THROMBOPHLEBITIS[ICD9: 451.9] Diagnosis: Arm pain[ICD9: 729.5] Diagnosis: Clostridium difficile colitis[ICD9: 008.45] Diagnosis: URINARY TRACT INFECTION[ICD9: 599.0] [facility]: 87941 07/03/2011 ([id number]) OFFICE/OUTPATIENT VISIT EST Diagnosis: ARTHRALGIA-MULTIPLE SITES[ICD9: 719.49] Diagnosis: Muscle cramp[ICD9: 729.82] Diagnosis: INSOMNIA NOS[ICD9: 780.52] [facility]: 74968 06/04/2011 OFFICE/OUTPATIENT VISIT EST Diagnosis: Headache[ICD9: 784.0] Diagnosis: Allergic rhinitis[ICD9: 477.9] Belia REID [facility] CPT-4: 59338 05/03/2011 OFFICE/OUTPATIENT VISIT EST Diagnosis: LUMB/LUMBOSAC DISC DEGEN[ICD9: 722.52] Diagnosis: MIGRAINE NOS/NOT INTRCBL[ICD9: 346.90] Diagnosis: CHRONIC PAIN SYNDROME[ICD9: 338.4] Diagnosis: RESTLESS LEGS SYNDROME[ICD9: 333.94] [facility]: 26153 04/05/2011 OFFICE/OUTPATIENT VISIT EST Diagnosis: MIGRAINE NOS/NOT INTRCBL[ICD9: 346.90] Diagnosis: GERD[ICD9: 530.81] Belia REID [facility] CPT-4: 31323 03/08/2011 OFFICE/OUTPATIENT VISIT EST Diagnosis: URINARY TRACT INFECTION[ICD9: 599.0] Diagnosis: Vertigo[ICD9: 780.4] Diagnosis: GERD[ICD9: 530.81] Belia REID [facility] CPT-4: 50257 01/24/2011 OFFICE/OUTPATIENT VISIT EST Diagnosis: Hypotension[ICD9: 458.9] Diagnosis: Syncopal episodes[ICD9: 780.2] Diagnosis: MIGRAINE NOS/NOT INTRCBL[ICD9: 346.90] Diagnosis: MALAISE AND FATIGUE[ICD9: 780.79] Belia Humphriesisabellaannie HSUKOFFI E Yuridia [facility] CPT-4: 47520 01/02/2011 OFFICE/OUTPATIENT VISIT EST Diagnosis: Tinea cruris[ICD9: 110.3] Diagnosis: Intertrigo[ICD9: 695.89] Diagnosis: MIGRAINE NOS/NOT INTRCBL[ICD9: 346.90] Belia GaribayLUBNA [facility] CPT-4: 90478 12/07/2010 OFFICE/OUTPATIENT VISIT EST Diagnosis: PALPITATIONS[ICD9: 785.1] Diagnosis: ANXIETY STATE NOS[ICD9: 300.00] Belia [facility] CPT-[facility]: 68271 11/16/2010 OFFICE/OUTPATIENT VISIT EST Diagnosis: URINARY TRACT INFECTION[ICD9: 599.0] Diagnosis: MIGRAINE NOS/NOT INTRCBL[ICD9: 346.90] Iraida CASILLAS [facility] CPT-[facility]: 71605 11/02/2010 OFFICE/OUTPATIENT VISIT EST Diagnosis: ALLERGIC RHINITIS[ICD9: 477.9] Diagnosis: ANXIETY STATE NOS[ICD9: 300.00] Belia [facility] CPT-4: 53486 10/18/2010 OFFICE/OUTPATIENT VISIT EST Belia [facility] CPT- 4: 02794 09/19/2010 OFFICE/OUTPATIENT VISIT EST Belia Shi [facility] CPT- 4: 82413 09/06/2010 ([id number]) OFFICE/OUTPATIENT VISIT EST Belia CASILLAS [facility] CPT-4: 97396 08/10/2010 ([id number]) OFFICE/OUTPATIENT VISIT EST Belia CASILLAS [facility] CPT-4: 77308 05/11/2010 ([id number]) OFFICE/OUTPATIENT VISIT, EST Belia MEJIALINE [facility] CPT-4: 22636 04/06/2010 ([id number]) OFFICE/OUTPATIENT VISIT, EST Belia HSU QUELINE [facility] CPT-4: 43910 02/09/2010 ([id number]) OFFICE/OUTPATIENT VISIT, EST Belia HSU [facility] CPT-4: 82105 01/05/2010 ([id number]) OFFICE/OUTPATIENT VISIT, EST Belia HSU [facility] CPT-4: 78320 12/07/2009 ([id number]) OFFICE/OUTPATIENT VISIT, EST Belia HSU [facility] CPT-4: 99968 11/08/2009 ([id number]) OFFICE/OUTPATIENT VISIT, EST Beliahanna HSU [facility] CPT-4: 14897 10/24/2009 ([id number]) OFFICE/OUTPATIENT VISIT, EST Beliahanna HSU [facility] CPT-4: 62762 07/25/2009 ([id number]) OFFICE/OUTPATIENT VISIT, EST Beliahanna MEJIALINE [facility] CPT-4: 46046 05/26/2009 Plan of Care Planned Activity Notes Codes Status Date Visit Diagnosis Plan: Diarrhea Discussion: Restart Col estid at once daily ICD-9 : 787.91 ICD-10 : R19.7 07/06/2019 Visit Diagnosis Plan: Inspiratory stridor Discussion: Continue oxygen via NC at 2 L Continue ativan at QID Follow Up: 4 weeks ICD-9 : 786.1 ICD-10 : R06.1 07/06/2019 Appointment: Belia Reid WPtel: [address] [place], [place] [phone] TELEMEDICINE 07/06/2019 Visit Diagnosis Plan: Left leg [...] : R06.00 06/24/2019 Appointment: Belia Reid WPtel: [address] [place], [place] [phone] TELEMEDICINE 06/24/2019 Visit Diagnosis Plan: Acute bronchitis Discussion: Cov er with levaquin Increase SVNs with albuterol to QID Has oxygen using q HS routinely and prn To ER if oxygen levels drop or worsening respiratory symptoms ICD-9 : 466.0 ICD-10 : J20.9 06/16/2019 Visit Diagnosis Plan: Colitis Discussion: Levaquin/[place] gyl [place] Diet ICD-9 : 558.9 ICD-10 : K52.9 06/16/2019 Appointment: Belia Reid WPtel: [address] [place] [address] TELEMEDICINE 06/16/2019 Patient Education: Levaquin- [employer] Coupon [id number] [email or web address]/samplemd/[email or web address] Completed 06/16/2019 Visit Diagnosis Plan: Diarrhea Discussion: Vancomycin for 10 days and notify if not improving or worsening BLAND diet Hydrate ICD-9 : 787.91 ICD-10 : R19.7 06/08/2019 Appointment: Belia Reid WPtel: [address] [place] [address] TELEMEDICINE 06/08/2019 Visit Diagnosis Plan: Acute febrile illness Discussion : Notify if worsens ICD-9 : 780.60 ICD-10 : R50.9 05/26/2019 Visit Diagnosis Plan: Colitis Discussion: Flagyl plus cipro to cover for both colitis and UTI Notify or to ER if worsening ICD-9 : 558.9 ICD-10 : K52.9 05/26/2019 Appointment: Belia Reid WPtel: [address] [place] [address] TELEMEDICINE 05/26/2019 Appointment: Pattie Sotomayor [address] [place] [address] RESCHEDULED 05/18/2019 Visit Diagnosis Plan: Chronic obstructive pulmonary di sease, unspecified Discussion: Recommend pulmonary rehab Patient states she never went to pulmonary rehab due to cost as well as transportation issues Finish trelagy Stop singulair Decrease hydroxyzine to 25mg po q HS Fwup [address] scan of Chest results discussed ICD-9 : 496 ICD-10 : J44.9 05/13/2019 Appointment: Belia Reid WPtel: [address] [place] [address] Hospital Follow Up 05/13/2019 Visit Diagnosis Plan: COUGH Discussion: Check CT scan of chest ICD-9 : 786.2 ICD-10 : R05 05/06/2019 Visit Diagnosis Plan: Stridor Discussion: Add Trelagy 1 p daily Add Singulair May need to see new health diagnostics teacher ICD-9 : 786.1 ICD-10 : R06.1 05/06/2019 Appointment: Belia Reid WPtel: [address] [place], [place] [id number] FOLLOW UP 05/06/2019 Patient Education: Singulair- OptimizeRX Coupon [id number] https://www.DigiPath/sampleCarlipa Systems/resources/getResource/61/[email or web address]-ng Completed 05/06/2019 Appointment: Belia Reid WPtel: [address] [place] [address] [place] RESCHEDULED 04/30/2019 Visit Diagnosis Plan: Stridor [...] G25.5 04/29/2019 Appointment: Belia Reid WPtel: [address] [place], [place] [id number] Hospital Follow Up 04/29/2019 Patient Education: Valium- OptimizeRX Coupon [id number] https://www.DigiPath/8aweek/resources/getResource/61/[email or web address] Completed 04/29/2019 Visit Diagnosis Plan: Flank pain [...] : R63.5 04/16/2019 Appointment: Pattie Sotomayor [address] [facility] ACUTE ILLNESS 04/16/2019 Patient Education: cyclobenzaprine- OptimizeRX Coudelma [id number] https://www.[email or web address]/8aweek/resources/getResource/61/[email or web address] Completed 04/16/2019 Visit Diagnosis Plan: Migraine, unspecif ied, not intractable, without status migrainosus Discussion: Increase gabapentin to 600mg po BID ICD-9 : 346.90 ICD-10 : G43.909 04/08/2019 Visit Diagnosis Plan: Generalized pruritus Discussion: Hydroxyzine 25mg po TID for itching and anxiety ICD-9 : 698.9 ICD-10 : L29.9 04/08/2019 Appointment: Belia Reid WPtel: [address] [place] [address] ACUTE ILLNESS 04/08/2019 Visit Diagnosis Plan: Cervicalgia [...] : M75.52 01/22/2019 Appointment: Belia Reid WPtel: [address] [place] [address] Hospital Follow Up 01/22/2019 Visit Diagnosis Plan: Abdominal pain Discussion: urine culture sent to assess for any infection. rocephin given in office to cover for pyelonephritis. instructed to push fluids. call office with any new or worsening symptoms. ICD-9 : 789.00 ICD-10 : R10.9 01/07/2019 Appointment: Pattie Sotomayor 504 [facility] ACUTE ILLNESS 01/07/2019 Visit Diagnosis Plan: Low back pain Discussion: Stat C T of abdomen/pelvis now ICD-9 : 724.2 ICD-10 : M54.5 12/24/2018 Appointment: Belia Reid WPtel: [address] [place], [place] [phone] [place] FOLLOW UP 12/24/2018 Visit Diagnosis Plan: [...] : M79.7 11/20/2018 Appointment: Belia Reid WPtel: [address] [place] [address] ACUTE ILLNESS 11/20/2018 Patient Education: baclofen- [employer] C[employer]on [id number] [id number] [email or web address]://www.DigiPath/samplemd/resources/getResource/61/2o1433t1-vc1h-81ff-09 Completed 11/20/2018 Visit Diagnosis Plan: Migraine, unspecif ied, intractable, without status migrainosus Discussion: toradol/phenergan given in o ffice (60 mg toradol, 12.5 mg phenergan). instructed to call if no improvement or worsening. instructed to follow up with [employer] since headaches are occurring more frequently to make sure vision is not the cause. ICD-9 : 346.91 ICD-10 : G43.919 11/04/2018 Visit Diagnosis Plan: Acute sinusitis, unspecified Dis cussion: zithromax prescribed to cover for sinus infection due to length of symptoms and clinincal s/s. ICD-9 : 461.9 ICD-10 : J01.90 11/04/2018 Appointment: Pattie Sotomayor [address] [place], [place] [phone] ACUTE ILLNESS 11/04/2018 Appointment: Belia Reid WPtel: [address] [place], [place] [phone] [place] CANCELED 09/24/2018 Visit Diagnosis Plan: Type 2 diabetes me llitus with diabetic neuropathy, unspecified Discussion: Retry gabapentin 300mg po q HS ICD-9 : 250.60 ICD-10 : E11.40 09/18/2018 Visit Diagnosis Plan: Vitamin D deficiency, unspecifie d Discussion: Increase Vitamin D3 to 10,000 u daily ICD-9 : 268.9 ICD-10 : E55.9 09/18/2018 Visit Diagnosis Plan: Encounter for [facility] adult medical examination without abnormal [...] I10 09/18/2018 Appointment: Belia Reid WPtel: [address] [facility] Annual Well Visit 09/18/2018 Patient Education: gabapentin- [employer] Coupon [phone] https://www.8aweek.com/samplemd/resources/getResource/61/7f36ib20-5yq6-3mak-a0 Completed 09/18/2018 Visit Diagnosis Plan: Pain in [...] : M54.89 09/08/2018 Appointment: Pattie Sotomayor 504 [facility] ACUTE ILLNESS 09/08/2018 Patient Education: prednisone- [employer] Coupon [phone] https://www.8aweek.com/samplemd/resources/getResource/61/7q7by38a-2367-54l7-ul Completed 09/08/2018 Visit Diagnosis Plan: Pruritus, unspecified [...] : E10.9 08/20/2018 Appointment: Belia Reid WPtel: [address] [place] [address] ACUTE ILLNESS 08/20/2018 Patient Education: Lexapro- [employer] Coupon [id number] Completed 08/20/2018 Patient Education: hydroxyzine HCl- [employer] Coupon [id number] Completed 08/20/2018 Care Plan: MAMMOGRAM SCREENING [facility] : 2 6347-5 Pending 08/20/2018 Visit Diagnosis Plan: Paroxysmal atrial fibrillation D iscussion: Discuss eliquis need with cardiology at [facility] due to cost ICD-9 : 427.31 ICD-10 : I48.0 06/19/2018 Visit Diagnosis Plan: Hypotension due to drugs Discuss ion: Discussed decreasing cardizem dose due to low BP and edema but sees cardiology next week Follow Up: 1 months ICD-9 : 458.8 ICD-10 : I95.2 06/19/2018 Appointment: Belia Reidtel: [facility] [place] [facility] [place] [address] FOLLOW UP 06/19/2018 Visit Diagnosis Plan: [...] : R61 06/09/2018 Appointment: Belia Reid WPtel: [address] [place], [place] [phone] FOLLOW UP 06/09/2018 Care Plan: CHEST X-RAY 2VW FRONTAL&LATL LOINC : 42557-1 Pending 05/26/2018 Visit Diagnosis Plan: Supraventricular tachycardia [...] : R53.1 05/21/2018 Appointment: Belia Reid WPtel: [address] [place] [address] Hospital Follow Up 05/21/2018 Visit Diagnosis Plan: Cervical disc diso rder with radiculopathy, unspecified cervical region Discussion: Scheduled for surgery on 06/02 10/[address] Faulkner ICD-9 : 722.0 ICD-10 : M50.10 04/16/2018 Appointment: Belia Reid WPtel: [address] [place] [address] Hospital Follow Up 04/16/2018 Visit Diagnosis Plan: [...] : G43.919 04/01/2018 Appointment: Pattie Sotomayor [address] [place] [address] ACUTE ILLNESS 04/01/2018 Appointment: Belia Reid WPtel: [address] [place] [address] 03/17/2018 Visit Diagnosis Plan: Chronic obstructiv e [...] : E11.65 03/06/2018 Appointment: Belia Reid WPtel: [address] [place] [address] Hospital Follow Up 03/06/2018 Visit Diagnosis Plan: Cervicalgia Discussion: spoke wi th dr. reid about patient. increased gabapentin to bid and started on celebrex bid. tramadrol rx written out to take prn. keep scheduled appt next week for myelogram. ICD-9 : 723.1 ICD-10 : M54.2 02/05/2018 Appointment: Pattie Sotomayor [address] [place] [address] ACUTE ILLNESS 02/05/2018 Care Plan: X-RAY EXAM NECK SPINE 4/5VWS cervical LOINC : 92214-6 Pending 01/21/2018 Visit Diagnosis Plan: Candidiasis of [...] : M54.2 01/20/2018 Appointment: Pattie Sotomayor [address] [place] [address] ACUTE ILLNESS 01/20/2018 Visit Diagnosis Plan: Pain in thoracic spine Discussio n: Proceed with CT scan of thoracic spine Will likely need PT ICD-9 : 724.1 ICD-10 : M54.6 12/25/2017 Appointment: Belia Reid WPtel: [address] [place] [address] FOLLOW UP 12/25/2017 Care Plan: CT THORAX W/O DYE LOINC : 473 66-0 Pending 12/25/2017 Visit Diagnosis Plan: Pain in thoracic spine Discussio n: Stretches Alternated heat/ice Topical aspercreme with lidocaine Flexeril Recheck 1 week Flu and Pneumovax given ICD-9 : 724.1 ICD-10 : M54.6 12/17/2017 Appointment: Belia Reid WPtel: [address] [place] [address] ACUTE ILLNESS 12/17/2017 Patient Education: Patient Medication [...] : J44.1 10/30/2017 Appointment: Belia Reid WPtel: [address] [place] [address] [place] FOLLOW UP 10/30/2017 Patient Education: Patient Medication Summary Completed 10/30/2017 Visit Diagnosis Plan: Chronic obstructiv e pulmonary disease with acute lower respiratory infection Discussion: Continue SVNs with albuterol q4hrs Add Trelagy 1 inhalation daily Finish steroids Increase water intake Follow Up: 1 weeks ICD-9 : 496 ICD-10 : J44.0 10/23/2017 Appointment: Belia Reidtel: [address] [place] [address] WORK IN 10/23/2017 Patient Education: Patient Medication Summary Completed 10/23/2017 Appointment: Belia Reid WPtel: [address] [place] [address] NO SHOW 10/16/2017 Visit Diagnosis Plan: Confusional [...] ICD-10 : E11.65 09/17/2017 Appointment: Belia Reidtel: [address] [place] [address] Annual Well Visit 09/17/2017 Patient Education: Patient Medication Summary Completed 09/17/2017 Appointment: Belia Reidtel: [address] [place], [place] [phone] [place] INJECTION 08/26/2017 Patient Education: Patient Medication Summary Completed 08/26/2017 Appointment: Belia Reidtel: [address] [place], [place] [phone] CANCELED 07/31/2017 Visit Diagnosis Plan: Encounter for [...] : J20.9 07/19/2017 Appointment: Pattie Sotomayor [address] [employer] [id number] ACUTE ILLNESS 07/19/2017 Patient Education: Patient Medication Summary Completed 07/19/2017 Care Plan: MAMMOGRAM SCREENING LOINC : 2 6347-5 Pending 07/19/2017 Patient Education: Patient Medication Summary Completed 06/05/2017 Care Plan: LIPID PANEL LOINC : 89872-7 Pending 06/05/2017 Care Plan: A1C HPLC LOINC : 73881-2 Pending 06/05/2017 Visit Diagnosis Plan: Rash and [...] : R21 05/29/2017 Appointment: Pattie Sotomayor [address] [employer] [id number] FOLLOW UP 05/29/2017 Patient Education: Patient Medication Summary Completed 05/29/2017 Visit Diagnosis Plan: Tinea corporis Discussion: Diflu can and topical nystatin Follow Up: 2 weeks ICD-9 : 110.5 ICD-10 : B35.4 05/07/2017 Visit Diagnosis Plan: Diarrhea, unspecified Discussion : Diflucan Cholestyramine Recheck 2weeks ICD-9 : 787.91 ICD-10 : R19.7 05/07/2017 Appointment: Belia Reidtel: [address] [place], [place] [address] US FOLLOW UP 05/07/2017 Patient Education: Patient Medication Summary Completed 05/07/2017 Appointment: Belia Reid WPtel: [address] [place], [place] [address] US RESCHEDULED 04/30/2017 Visit Diagnosis Plan: Chronic obstructiv e pulmonary disease with (acute) exacerbation Discussion: Finish prednisone Continue S VNS with albuterol ICD-9 : 491.21 ICD-10 : J44.1 03/18/2017 Visit Diagnosis Plan: Stridor Discussion: Increase Ati van 0.5mg po to TID routinely for next week then can go back to prn ICD-9 : 786.1 ICD-10 : R06.1 03/18/2017 Appointment: Belia Reid WPtel: [address] [place], [place] [phone] ER Follow UP 03/18/2017 Patient Education: Patient [...] ICD-10 : E11.65 02/27/2017 Appointment: Belia Reidtel: [address] [place], [place] [phone] [place] FOLLOW UP 02/27/2017 Patient Education: Patient [...] : E11.65 02/22/2017 Appointment: Pattie Sotomayor [address] [place], [place] [phone] ACUTE ILLNESS 02/22/2017 Patient Education: Patient Medication Summary Completed 02/22/2017 Patient Education: Maddy - 18+ Comple mague 02/22/2017 Visit Diagnosis Plan: Urinary tract infection, site no t specified Discussion: Sejal diaandrzej ICD-9 : 599.0 ICD-10 : N39.0 01/23/2017 [...] : J18.9 01/23/2017 Appointment: Belia Reid WPtel: [address] [place] [address] ER Follow UP 01/23/2017 Patient Education: Patient Medication Summary Completed 01/23/2017 Appointment: Pattie Sotomayor [address] [place], [place] [phone] [place] CANCELED 01/17/2017 Appointment: Pattie Sotomayor [address] [place] [address] Annual Well Visit 01/14/2017 Visit Diagnosis Plan: Type 2 diabetes mellitus with hy perglycemia Discussion: Check CMP, HbA1C Flu shot and Prevnar 13 given Follow Up: 3 months ICD-9 : 250.02 ICD-10 : E11.65 12/20/2016 Visit Diagnosis Plan: Localized edema Discussion: Low Na diet Compression socks/Elevate feet ICD-9 : 782.3 ICD-10 : R60.0 12/20/2016 Appointment: Belia Reid WPtel: [address] [place] [address] [place] FOLLOW UP 12/20/2016 Patient Education: Patient Medication Summary Completed 12/20/2016 Patient Education: Patient Medication Summary Completed 10/10/2016 Visit Plan: Xrays of cervical, thoracic and lumbar spine at [facility] for Mobic (stop NSAIDS except Tylenol) and Flexeril UA sent for C&S Using SVN Call in 2-3 days if pain not improved or any worsening 10/08/2016 Appointment: Celeste Ferreira WPtel: [address] [place], [place] [phone] ACUTE ILLNESS 10/08/2016 Patient Education: Patient Medication [...] : E11.65 09/19/2016 Appointment: Belia Reid WPtel: [address] [place], [place] [id number] 09/18 confirmed`sl FOLLOW UP 09/19/2016 Patient Education: [...] : R10.84 08/20/2016 Appointment: Belia Reid WPtel: [address] [place] [address] 08/16 confirmed~sl FOLLOW UP 08/20/2016 Patient Education: [...] J44.9 06/19/2016 Appointment: Belia Reid WPtel: [address] [place], [place] [phone] 06/18 confirmed ~ Hospital Follow Up 06/19/2016 [...] : Z87.440 06/04/2016 Appointment: Belia Reid WPtel: [address] [place], [place] [phone] 06/01 confirmed~sl FOLLOW UP 06/04/2016 Patient Education: [...] 786.1 ICD-10 : R06.1 05/02/2016 Appointment: Belia Reidtel: [address] [place], [place] [address] 05/01 confirmed ~ Hospital Follow Up 05/02/2016 [...] : N39.0 04/03/2016 Appointment: Belia Reid WPtel: [address] [place] [address] 04/02 confirmed~ Hospital Follow Up 04/03/2016 Patient Education: Patient Medication Summary Completed 04/03/2016 Visit Plan: Lungs are clear Her symptoms and exam are all upper airway restriction/constriction Can try supportive care Rx as above Follow up PRN 02/29/2016 Appointment: Lidia Hwang [address] [place] [address] ACUTE ILLNESS 02/29/2016 Patient Education: Patient Medication Summary Completed 02/29/2016 Visit Plan: Toradol/Phenergan today for Migraine Change to Clindamycin to cover lactobacillus for UTI Cover with flagyl due to hx of C. Diff 02/02/2016 Appointment: Belia Reid WPtel: [address] [place] [address] 01/31 confirmed` ACUTE ILLNESS 02/02/2016 Patient Education: Patient Medication Summary Completed 02/02/2016 Visit Plan: Increase neurontin to 300mg q AM and 600mg q PM Discussed neurology re-evaluation Flu shot given Need to check on Pneumonia shot Rx written out for albuterol 01/05/2016 Appointment: Bel[facility] Reid [facility]Ptel: [facility] 01/03 confirmed ~sl Annual Well Visit 01/05/2016 Patient Education: Patient Medication Summary Completed 01/05/2016 Visit Plan: Cipro Culture urine hydrate Flexeril refilled Alternate heat and ice for back Increase gabapentin to 300mg po BID Notify if worsens 12/05/2015 Appointment: Belia Reid WPtel: [address] [facility] 11/30 confirmed~sl ACUTE ILLNESS 12/05/2015 Patient Education: Patient Medication Summary Completed 12/05/2015 Patient Education: Patient Medication Summary Completed 10/27/2015 Care Plan: [place] : [address]-8 Pending 10/27/2015 Care Plan: A1C HPLC LOINC : 09429-1 Pending 10/27/2015 Visit Plan: Lungs are CTA today and is f eeling improved overall Finish meds as ordered Continue inhalers and neb treatments Discussed migraine treatment options She does not feel she needs anything additional added today Refill of Januvia sent since no samples are available today 10/26/2015 Appointment: Lidia Hwang 2[address] [facility]66[facility] Hospital Follow Up 10/26/2015 Appointment: Lidia Hwang [address] CANCELED 10/26/2015 Patient Education: Patient Medication Summary Completed 10/26/2015 Patient Education: Januvia - 18+ - KENNETH - No [place] Completed 10/26/2015 Visit Plan: Office dip still abnormal Cu lture pending Switch to cipro - stop macrobid Push fluids - avoid caffeine Will call with culture results when available Follow up if worsening 10/05/2015 Appointment: Lidia Hwang [address] ER Follow UP 10/05/2015 Patient Education: Patient Medication Summary Completed 10/05/2015 Visit Plan: Proceed with PT for document ation of ROM and strength of all extremities Proceed with Power Mobility Device Trial of neurontin 300mg q HS--lyrica helped but patient unable to afford Recheck 1month 09/15/2015 Appointment: Belia Reid WPtel: [facility] 09/13 confirmed~sl SPECIAL 09/15/2015 Patient Education: Patient Medication Summary Completed 09/15/2015 Visit Plan: Fille out Loan Discharge Pap erwork for total and permanent disability 08/25/2015 Patient Education: Patient Medication Summary Completed 08/25/2015 Visit Plan: Discussed with Dr Anushka Haywood at CT of head Will get last date of carotid doppler from her simulation developer and update if needed 08/24/2015 Appointment: Lidia Hwang [address] [facility] 08/22 confirmed~sl ACUTE ILLNESS 08/24/2015 Patient Education: Patient Medication Summary Completed 08/24/2015 Patient Education: Patient Medication Summary Completed 08/24/2015 Care Plan: US EXAM OF HEAD AND NECK carotid Ultrasound LOIN C : 67178-2 Pending 08/24/2015 Visit Plan: Long discussion about diet A ccuchecks daily Check HbA1C, CMP Change requip to mirapex 07/05/2015 Appointment: Belia Reid WPtel: [address] [place], [place] [phone] 07/03 confirmed ~sl FOLLOW UP 07/05/2015 Patient Education: Patient Medication Summary Completed 07/05/2015 Visit Plan: Add Breo ellipta 100 1 p BID Continue SVNs with duoneb QID 06/06/2015 Appointment: Belia Reid WPtel: [address] [place], [place] [phone] Patient is calling for a ride, then [...] not improving 05/23/2015 Appointment: Huong Osborne WPtel: [address] [place], [place] [phone] ACUTE ILLNESS 05/23/2015 Appointment: Jaiden Lidia [address] [place] [address] ER Follow UP 05/23/2015 Patient Education: Patient Medication Summary Completed 05/23/2015 Visit Plan: Check pancreatic enzymes and US of pancreas as patient can't understand why she has diabetes since has no family history Discussed weight, diet, exercise all play an important role in diabetes and are risk factors as well Continue Januvia and accuchecks daily 05/05/2015 Appointment: Belia Reid WPtel: [address] [place], [place] [phone] US FOLLOW UP 05/05/2015 Patient Education: Patient Medication Summary Completed 05/05/2015 Care Plan: US EXAM ABDOM COMPLETE LOINC : 17313-9 Ordered 05/05/2015 Visit Plan: Start Januvia 100mg daily [place] with diflucan and culture urine Accuchecks daily alternating times Recheck 6weeks 03/30/2015 Appointment: Belia Reid WPtel: [address] [place], [place] [address] 03/29 confirmed~lb FOLLOW UP 03/30/2015 Patient Education: Patient Medication Summary Completed 03/30/2015 Appointment: Belia Reid WPtel: [address] [place], [place] [phone] 03/01 needs reschedule due to payment and insurance ~sl FOLLOW UP 03/02/2015 Visit Plan: Patient was just in ER last night so has not filled scripts yet Start Carafate and Flagyl and Cipro Add Hyophen 1 po BID Recheck 1mo 02/03/2015 Appointment: Belia Reid WPtel: [address] [place], [place] [phone] 02/02lm ~sl...02/03/15 appt confirmed cn ACUTE I LLNESS 02/03/2015 Patient Education: Patient Medication Summary Completed 02/03/2015 Visit Plan: Warm soaks to vaginal area K elex and Diflucan and observe Zofran to use prn 12/29/2014 Appointment: Belia Reid WPtel: [address] [place], [place] [phone] 12/28 Confirmed ~sl ACUTE ILLNESS 12/29/2014 Patient Education: Patient Medication Summary Completed 12/29/2014 Appointment: Huong Osborne WPtel: [address] [place], [place] [phone] FOLLOW UP 09/24/2014 Appointment: Belia Reid WPtel: [address] [place], [place] [address] 09/15 confirmed -mf FOLLOW UP 09/16/2014 Visit Plan: Increase requip to 2mg po BI D Increase lyrica to 225mg total a day by adding an extra 75mg in AM Recheck in 2weeks Continue to patch left eye while sleeping 09/02/2014 Appointment: Belia Reid WPtel: [address] [place], [place] [phone] 09/01 appt confirmed Hospital Follow Up 09/02 Patient Education: Patient Medication Summary Completed 09/02/2014 Visit Plan: To Via Ayanna for observat ion to R/O CVA 08/25/2014 Appointment: Huong Osborne WPtel: [address] [place], [place] [phone] ACUTE ILLNESS 08/25/2014 Patient Education: Patient Medication Summary Completed 08/25/2014 Referral: Aaron Jonas WPtel: [facility] [address] [place] location Initiated 04/26/2014 Referral: [facility]rinivasan [facility]el[id number] [facility] Initiated 04/20/2014 Appointment: Belia Reid WPtel: [address] [place], [place] [phone] ER Follow UP 04/01/2014 Patient Education: Patient Medication Summary Completed 04/01/2014 Care Plan: MYELOGRAPHY NECK SPINE LOINC : 57215-4 Ordered 04/01/2014 Visit Plan: Continue Symbicort 160 at 2p BID Continue SVNs with duoneb at least QID Finish Levaquin Recheck 1mo on lyrica 03/16/2014 Appointment: Belia Reid WPtel: [address] [place], [place] [phone] 03/15 voicemail FOLLOW UP 03/16/2014 Patient Education: Patient Medication Summary Completed 03/16/2014 Visit Plan: Restart SVNs with duoneb QID Repeat prednisone Levaquin Continue symbicort Keep lyrica at same dose Recheck 1week 03/09/2014 Appointment: Belia Reid WPtel: [address] [place], [place] [phone] FOLLOW UP 03/09/2014 Patient Education: Patient Medication Summary Completed 03/09/2014 Appointment: Belia Reid WPtel: [address] [place], [place] [phone] 03/03 showed up 15 minutes late for appt -- put her on Huong's side for 10:45am FORGIVEN PER DR FOLLOW UP 03/03/2014 Appointment: Huong Osborne WPtel: [address] [place], [place] [address] FOLLOW UP 03/03/2014 Patient Education: Patient Medication Summary Completed 03/03/2014 Appointment: Huong Osborne WPtel: [address] [place] [address] ER Follow UP 03/01/2014 Patient Education: Patient Medication Summary Completed 03/01/2014 Visit Plan: Add carafate for this next m onth Increase lyrica to 150mg q HS 02/09/2014 Appointment: Belia Reid WPtel: [address] [place], [place] [phone] [facility] Follow Up 02/09/2014 Patient Education: Patient Medication Summary Completed 02/09/2014 Visit Plan: Increase omeprazole back to 40mg po BID Use requip in AM and add lyrica 75mg q HS Recheck 1mo 12/23/2013 Appointment: Belia Reid WPtel: [address] [place], [place] [phone] FOLLOW UP 12/23/2013 Patient Education: Patient Medication Summary Completed 12/23/2013 Patient Education: Patient Medication Summary Completed 12/04/2013 Appointment: Belia Reid WPtel: [address] [place], [place] [phone] UA 10/30/2013 Patient Education: Patient Medication Summary Completed 10/30/2013 Appointment: Belia Reid WPtel: [address] [place], [place] [address] UA 10/21/2013 Patient Education: Patient Medication Summary Completed 10/21/2013 Visit Plan: Cryotherapy as above TAC and hydroxyzine to use prn to itching spots and itching SKs Add Advair HFA 115/21 1 p BID 10/05/2013 Appointment: Belia Reid WPtel: [address] [place], [place] [phone] 10/01 pt called and confirmed ACUTE ILLNESS Patient Education: Patient Medication Summary Completed 10/05/2013 Appointment: Belia Reid WPtel: [address] [place], [place] [phone] will pay copay and part of past balance FOLLOW U P 08/04/2013 Patient Education: Patient Medication Summary Completed 08/04/2013 Appointment: Belia Reid WPtel: [address] [place], [place] [phone] US INJECTION 07/13/2013 Patient Education: Patient Medication Summary Completed 07/13/2013 Appointment: Huong Osborne WPtel: [address] [place] [address] ACUTE ILLNESS 07/03/2013 Patient Education: Patient Medication Summary Completed 07/03/2013 Visit Plan: Cipro and culture urine 05/27/2013 Appointment: Huong Osborne WPtel: [address] [place], [place] [phone] 05/26 confirmed appt and notified that balance and copy operator y is due at appt time FOLLOW UP 05/27/2013 Patient Education: Patient Medication Summary Completed 05/27/2013 Appointment: Belia Reid WPtel: [address] [place], [place] [phone] US UA 05/25/2013 Patient Education: Patient Medication Summary Completed 05/25/2013 Appointment: Belia Reid WPtel: [address] [place], [place] [phone] US INJECTION 05/04/2013 Patient Education: Patient Medication Summary Completed 05/04/2013 Appointment: Belia Reid WPtel: [address] [place], [place] [phone] US INJECTION 04/17/2013 Patient Education: Patient Medication Summary Completed 04/17/2013 Appointment: Belia Reid WPtel: [address] [place], [place] [phone] US INJECTION 04/15/2013 Appointment: Belia Reid WPtel: [address] [place], [place] [id number] 04/02 vm FOLLOW UP 04/06/2013 Patient Education: Patient Medication Summary Completed 04/06/2013 Visit Plan: Obtain lab results including UA from [facility] 11/10/2012 Appointment: Belia Reid WPtel: [address] [place], [place] [phone] [place] ER Follow UP 11/10/2012 Patient Education: Patient Medication Summary Completed 11/10/2012 Appointment: Belia Reid WPtel: [address] [place], [place] [phone] 10/30/12 patient canceled appt due to fin ances. Offered to work something out, patient declined-LB FOLLOW UP 11/05/2012 Visit Plan: Continue Bystolic at current dose Pt has fwup with Neurology on September 16 09/02/2012 Appointment: Belia Reidtel: [address] [place] [address] FOLLOW UP 09/02/2012 Patient Education: Patient Medication Summary Completed 09/02/2012 Visit Plan: Continue bystolic at 5mg chris ly Sees Neurology tomorrow Use oxygen at bedtime 08/04/2012 Appointment: Belia Reidtel: [address] [place] [address] FOLLOW UP 08/04/2012 Patient Education: Patient Medication Summary Completed 08/04/2012 Appointment: Belia Reidtel: [address] [place] [address] Hospital fwup for 07/21/12. merged appointments FOLLOW UP 07/24/2012 Visit Plan: Start Bystolic 5mg daily for tachycardia Fwup with neurology for further workup Overnight O2 sat 07/21/2012 Appointment: Belia Reidtel: [address] [place] [address] Hospital Follow Up 07/21/2012 Patient Education: Patient Medication Summary Completed 07/21/2012 Visit Plan: SVN with Albuterol QID Add A velox 400mg daily Notify if worsens or persists 07/02/2012 Appointment: Belia Reid WPtel: [address] [place] [address] ACUTE ILLNESS 07/02/2012 Patient Education: Patient Medication Summary Completed 07/02/2012 Appointment: Belia Reidtel: [address] [place], [place] [phone] INJECTION 06/25/2012 Patient Education: Patient Medication Summary Completed 06/25/2012 App[facility]ment: [facility] [phone] [id number] FO[facility] UP 06/24/2012 Patient Education: Patient Medication Summary Completed 06/24/2012 Appointment: Belia Reidtel: [address] [place], [place] [id number] 05/19 left message FOLLOW UP 05/20/2012 Patient [...] po TID 05/08/2012 Appointment: Belia Reid WPtel: [address] [place], [place] [phone] ACUTE ILLNESS 05/08/2012 Patient Education: Patient Medication Summary Completed 05/08/2012 Visit Plan: Continue current meds Contin ue lower dose on pain meds and Diazepam Still waiting on paperwork for botox for Migraines Will restart Neurontin at 600mg po q HS Pt going to stop Depakote due to can't afford 04/22/2012 Appointment: Belia Reidtel: [address] [place], [place] [id number] 04/21 Hospital Follow Up 04/22/2012 Patient Education: Patient Medication Summary Completed 04/22/2012 Visit Plan: Injection to shoulder as abo ve Continue current meds Has appointment with neurology on HAs in 02/13/2012 Appointment: Belia Reid WPtel: [address] [place], [place] [id number] Pt does not have $10 copay at [facility] t time - will bring it in next week. Kianna iqbal'ed this. - [place] FOLLOW UP 02/13/2012 Patient Education: Patient Medication Summary Completed 02/13/2012 Visit Plan: Proceed with headache specia list Change nexium to Protonix Phenergan to use prn Sumatriptan to use prn Pt still on Inderal 01/28/2012 Appointment: Belia Reidtel: [address] [place] [address] ER Follow UP 01/28/2012 Patient Education: Patient [...] Retry trazadone for sleep 12/26/2011 Appointment: Belia Reidtel: [address] [place] [address] 12/24- appt. confirmed FOLLOW UP 2 Patient Education: Patient Medication Summary Completed 12/26/2011 Appointment: Belia Reid WPtel: [address] [place] [address] [place] FOLLOW UP 11/14/2011 Patient Education: Patient Medication Summary Completed 11/14/2011 Appointment: Belia Reidtel: [address] [place] [address] FOLLOW UP 09/12/2011 Patient Education: Patient Medication Summary Completed 09/12/2011 Visit Plan: Supportive care Decrease Liseth catalino to 50mg q HS Decrease AM dose of Valium to 5mg q HS Use Endocet sparingly 08/15/2011 Appointment: Belia Reid WPtel: [address] [place] [address] ER Follow UP 08/15/2011 Patient Education: Patient Medication Summary Completed 08/15/2011 Appointment: Belia Reidtel: [address] [place] [address] [place] Spoke directly to patient yesterday and confirmed the appoin tment. cn ACUTE ILLNESS 08/09/2011 Patient Education: Patient Medication Summary Completed 08/09/2011 Appointment: Belia Reidteabigail: [address] [place] [address] Hospital Follow Up 07/03/2011 Patient Education: Patient Medication Summary Completed 07/03/2011 Appointment: Belia Reid WPtel: [address] [place] [address] FOLLOW UP 06/04/2011 Patient Education: Patient Medication Summary Completed 06/04/2011 Visit Plan: Pt. wants "allergy shot" but in fact wants steroid shot. Will take a break from "generic Zyrtec they are getting from [facility]" and try Singulair for 2 weeks. 05/03/2011 Appointment: Iraida Jones WPtel: [address] [place] [address] ACUTE ILLNESS 05/03/2011 Patient Education: Patient Medication Summary Completed 05/03/2011 Visit Plan: Neurontin 400mg q HS for 1we ek then 800mg q HS Decrease requip to 1mg q HS for 2wks then stop Fwup 2mos 04/05/2011 Appointment: Belia Reid WPtel: [address] [place] [address] FOLLOW UP 04/05/2011 Patient Education: Patient Medication Summary Completed 04/05/2011 Visit Plan: Trial of neurontin in 2wks C ontinue current meds for stomach Pt has procedure with Dr. Ortiz next week for stone removal 03/08/2011 Appointment: Belia Reid WPtel: [address] [place] [address] Hospital Follow Up 03/08/2011 Patient Education: Patient Medication Summary Completed 03/08/2011 Appointment: Belia Reid WPtel: [address] [place] [address] FOLLOW UP 02/19/2011 Visit Plan: reports increased [...] with Flagyl 01/24/2011 Appointment: Iraida Jones WPtel: [address] [place] [address] ACUTE ILLNESS 01/24/2011 Patient Education: Patient Medication Summary Completed 01/24/2011 Appointment: Belia Reid WPtel: [address] [place] [address] FOLLOW UP 01/02/2011 Patient Education: Patient Medication Summary Completed 01/02/2011 Appointment: Belia Reid WPtel: [address] [place] [address] FOLLOW UP 12/12/2010 Appointment: Belia Reid WPtel: [address] [place] [address] ACUTE ILLNESS 12/07/2010 Patient Education: Patient Medication Summary Completed 12/07/2010 Visit Plan: Increase Buspar to 10mg po B ID 11/16/2010 Appointment: Belia Reid WPtel: [address] [place] [address] FOLLOW UP 11/16/2010 Patient Education: Patient Medication Summary Completed 11/16/2010 Appointment: Iraida Jones WPtel: [address] [place] [address] ER Follow UP 11/02/2010 Patient Education: Patient Medication Summary Completed 11/02/2010 Visit Plan: Depo-Medrol/Kenalog given fo r allergies Add BuSpar for anxiety Oxycodone one p.o. q.i.d. for number 120 refilled 10/18/2010 Appointment: Belia Reid WPtel: [address] [place] [address] [place] FOLLOW UP 10/18/2010 Patient Education: Patient Medication Summary Completed 10/18/2010 Visit Plan: Continue current meds Discus sed epidurals for back vs PT--will proceed with epidurals to thoracolumbar region to see if helps with pain 09/19/2010 Appointment: Belia Reidtel: [address] [place] [address] FOLLOW UP 09/19/2010 Patient Education: Patient Medication Summary Completed 09/19/2010 Visit Plan: DC MS contin Check CT scan t horacic spine Fwup pending above results 09/06/2010 Appointment: Belia Reid WPtel: [address] [place], [place] [id number] FOLLOW UP 09/06/2010 Patient Education: Patient Medication Summary Completed 09/06/2010 Visit Plan: Continue current meds Restar t MS contin 15mg po BID and use oxycodone prn Use daily senokot-s 2 po BID 08/10/2010 Appointment: Belia Reid WPtel: [address] [place] [address] FOLLOW UP 08/10/2010 Patient Education: Patient Medication Summary Completed 08/10/2010 Visit Plan: Depomedrol/Kenalog given Pt sees ENT later this month Cont current meds Mammo scheduled 05/11/2010 Appointment: Belia Reid WPtel: [address] [place] [address] FOLLOW UP 05/11/2010 Patient Education: Patient Medication Summary Completed 05/11/2010 Appointment: Belia Reidtel: [address] [place], [place] [phone] UA 05/04/2010 Patient Education: Patient Medication Summary Completed 05/04/2010 Visit Plan: Pt sent to lab for UA 04/28/2010 Appointment: Belia Reidtel: [address] [place], [place] [phone] UA 04/28/2010 Patient Education: Patient Medication Summary Completed 04/28/2010 Visit Plan: Check CT angiogram of chest Restart Advair Use proair prn Cont current meds Fwup with Card as schedulec 04/06/2010 Appointment: Belia Reid WPtel: [address] [place], [place] [phone] [facility] Follow Up 04/06/2010 Patient Education: Patient Medication Summary Completed 04/06/2010 Visit Plan: Paperwork filled out for pow erchair Depomedrol/kenalog given Pt sees ENT in 2wks to assess nasal obstruction problems 02/09/2010 Appointment: Belia Reid WPtel: [address] [place], [place] [id number] ESTABLISHED PATIENT 02/09/2010 Patient Education: Patient Medication Summary Completed 02/09/2010 Visit Plan: Change Elavil to Trazadone 1 50mg q HS Diflucan and nystatin for tinea cruris 01/05/2010 Appointment: Belia Reid WPtel: [address] [place] [address] FOLLOW UP 01/05/2010 Patient Education: Patient Medication Summary Completed 01/05/2010 Appointment: Belia Reid WPtel: [address] [place] [address] FOLLOW UP 12/07/2009 Patient Education: Patient Medication Summary Completed 12/07/2009 Appointment: Belia Reid WPtel: [address] [place], [place] [phone] FOLLOW UP 11/22/2009 Visit Plan: Cont current meds and await MRI results from Dr. Meadows's office and his final recommendations Will need to follow-up at later date on deviated septum 11/08/2009 Appointment: Belia Reid WPtel: [address] [place], [place] [phone] FOLLOW UP 11/08/2009 Patient Education: Patient Medication Summary Completed 11/08/2009 Visit Plan: Cont PT/OT See Neurosurgery Cont Tortoise shell brace 10/24/2009 Appointment: Belia Reid WPtel: [address] [place], [place] [id number] FOLLOW UP 10/24/2009 Patient Education: Patient Medication Summary Completed 10/24/2009 Appointment: Belia Reid WPtel: [address] [place] [address] Follow Up 10/17/2009 Appointment: Belia Reid WPtel: [address] [place] [address] ACUTE ILLNESS 07/25/2009 Patient Education: Patient Medication Summary Completed 07/25/2009 Appointment: Belia Reid WPtel: [address] [place] [address] FOLLOW UP 05/26/2009 Patient Education: Patient Medication Summary Completed 05/26/2009 Referral: Chino Balderas WPtel: [address] Referral Initiated Referral: Merry Vale WPtel: [facility] [id number] Vale will review referral and book appointment Completed Referral: Francisco Javier Yoder WPtel: [address] Patient needs EGD insurance will not inc rease a medication unless this procedure results show a need Completed Referral: Francisco Javier Yoder WPtel: [address] [place] [address] [place] Referral Historical Reference Referral: Francisco Javier Yoder WPtel: [address] [place] [address] [place] Referral Initiated Instructions Comment . Xrays [...] last date of carotid doppler from her simulation developer and update if needed . Long discussion [...] from "generic Zyrtec they are getting from [facility]" and try Singulair for 2 weeks. . [...]
--- NOTE | 2019-08-27 08:17 | ED Fall/Injury ---
General Chief Complaint: Trauma-Non Activation Stated Complaint: R HIP PAIN Nursing Triage Note: PT ARRIVED PER EMS PT CO OF R HIP PAIN STATES WAS GETTING OUT OF SHOWER AND WAS DRYING OFF AND TACHO SLIPPED AND FELL ON R SIDE CO OF R HIP PAIN AND R KNEE PAIN Source: patient History of Present Illness Date Seen by Provider: Aug 27, 2019 Time Seen by Provider: 07:35 Initial Comments PT ARRIVES VIA EMS FROM HOME PT STATES SHE WAS IN THE SHOWER, DRYING OFF AND THE MAT SLIPPED AND SHE LOST HER BALANCE AND FELL ON HER RIGHT SIDE OCCURRED JUST PRIOR TO ARRIVAL C/O RIGHT HIP PAIN, PAIN DOWN TO HER RIGHT KNEE C/O LOWER BACK PAIN ALSO C/O LEFT KNEE PAIN NO PARESTHESIAS OR MOTOR DEFICITS DID NOT HIT HEAD AND NO LOSS OF CONSCIOUSNESS NO CHANGE IN CHRONIC NECK PAIN ALSO HAS CHRONIC BACK PAIN FILLED RX'S FOR BACLOFEN AND MELOXICAM ON 08/25/19 Location Injury Occurred: HOME PCP: Allergies and Home Medications Allergies Coded Allergies: Penicillins (Unverified Allergy, Severe, Pt has received Cefepime & Ceftri axone in the past w/o issue, 07/21/18) SWELLING, RASH, ITCHING Sulfa (Sulfonamide Antibiotics) (Verified Allergy, Mild, 07/21/18) RASH aspirin (Verified Adverse Reaction, Mild, ASPIRIN SENSITIVE, 07/21/18) UPSET STOMACH sumatriptan (Verified Adverse Reaction, Mild, PALPITATIONS, 07/21/18) IRRITABLE Home Medications Cholecalciferol (Vitamin D3) 125 Mcg Tablet, 250 MCG PO 1800, (Reported) Diltiazem HCl 240 Mg Cap.er.24h, 240 MG PO DAILY, (Reported) Escitalopram Oxalate 10 Mg Tablet, 10 MG PO DAILY, (Reported) LAST FILLED 02-02-2019 #90/90 DAYS SUPPLY Insulin NPH Human Isophane 100 Unit/1 Ml Vial, 25 UNIT SQ BID Prescribed by: NANNETTE REVELES on 06/29/19 124 Loratadine 10 Mg Tablet, 10 MG PO DAILY Prescribed by: NANNETTE REVELES on 06/29/19 124 Lorazepam 0.5 Mg Tablet, 0.5 MG PO QID Prescribed by: NANNETTE REVELES on 06/29/19 124 Magnesium Oxide 400 Mg Tablet, 800 MG PO DAILY, (Reported) TAKES 2 (400MG) TABS Melatonin 3 Mg Tablet, 6 MG PO HS PRN for SLEEP, (Reported) TAKES 2 (3MG) TABS Metoprolol Tartrate 50 Mg Tablet, 100 MG PO BID replaces 25mg dose Prescribed by: NANNETTE REVELES on 06/29/19 1247 Montelukast Sodium 10 Mg Tablet, 10 MG PO HS Prescribed by: NANNETTE REVELES on 06/29/19 1247 Omeprazole 40 Mg Capsule.dr, 40 MG PO BID, (Reported) Pramipexole Di-HCl 1 Mg Tablet, 1 MG PO HS, (Reported) LAST FILLED 02-16-2019 #90/90 DAY SUPPLT Patient Home Medication List Home Medication List Reviewed: Yes Review of Systems Review of Systems Constitutional: no symptoms reported Eyes: No Symptoms Reported Ears, Nose, Mouth, Throat: no symptoms reported Respiratory: no symptoms reported Cardiovascular: no symptoms reported Gastrointestinal: no symptoms reported Genitourinary: no symptoms reported Musculoskeletal: see HPI, back pain, other (RIGHT HIP PAIN, RIGHT THIGH PAIN, BILATERAL KNEE PAIN ) Skin: no symptoms reported Psychiatric/Neurological: No Symptoms Reported Past [id number] Hx Past Med/Social Hx: Reviewed and Corrections made Patient Social History Alcohol Use: Denies Use Recreational Drug Use: No Smoking Status: Never a Smoker 2nd Hand Smoke Exposure: Yes Recent Foreign Travel: No Contact w/Someone Who Travel: No Recent Infectious Disease Expo: No Recent Hopitalizations: No Physical Abuse: No Sexual Abuse: No Immunizations Up To Date Tetanus Booster (TDap): Unknown PED Vaccines UTD: No Date of Pneumonia Vaccine: Apr 04, 2018 Date of Influenza Vaccine: Dec 31, 2018 Seasonal Allergies Seasonal Allergies: Yes Past Medical History Surgeries: Yes (LAP CORNELIUS; C-SPINE FUSION/DISCECTOMY C5-C6 ) Abdominal, Appendectomy, Cardiac, Defibrillator, Eye Surgery, Gallbladder, Hysterectomy, Oophorectomy, Orthopedic, Pacemaker, Tonsillectomy Respiratory: Yes (O2 AT HS AND PRN) Asthma, Pneumonia, Chronic Bronchitis, Sleep Apnea, COPD Currently Using CPAP: No Currently Using BIPAP: No Cardiac: Yes (PACEMAKER/DEFIBRILLATOR;CARDIAC ARREST DURING ENT SURGERY;PSVT/PALPITATIONS) Coronary Artery Disease, High Cholesterol, Hypertension, Irregular Heartbeat Neurological: Yes (PERIPHERAL NEUROPATHY HANDS/FEET; CHRONIC HEADACHES) Headaches /Migraines, Neuropathy 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 Disorders: No Female 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 Disorders: Denies 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 PAIN) Degenerate Disk Disease, Arthritis, Fibromyalgia, Chronic Back Pain, Fractures Endocrine: Yes Diabetes, Insulin dep, Diabetes, Non-Insulin dep HEENT: Yes (S/P BILATERAL CATARACT SURGERY + YAG PROCEDURE;ENT SURG WITH CARDIAC ARREST) Cataract Loss of Vision: Denies Hearing Impairment: Denies Cancer: No Psychosocial: Yes Anxiety, Depression Integumentary: Yes (NELIA INTERTRIGO) Pruritis Blood Disorders: No Adverse Reaction/Blood Tranf: No Family Medical History Alzheimer's disease 19 FATHER Cardiovascular disease 19 FATHER 19 MOTHER Completed stroke 19 MOTHER Hypertension 19 FATHER 19 MOTHER Myocardial infarction 19 FATHER 19 MOTHER No Family History of: Diabetes mellitus PSH: -T12 KYPHOPLASTY -C5-C6 CERVICAL DISCECTOMY WITH FUSION 04/2018 -LAP CORNELIUS FUNDOPLICATION -EGD'S/ESOPHAGEAL DILATIONS/COLONOSCOPIES/POLYPECTOMIES -PACEMAKER/DEFIBRILLATOR -HYSTERECTOMY/BSO -CHOLECYSTECTOMY -APPENDECTOMY -TONSILLECTOMY -OVARIAN CYST SURGERIES X 4 -CYST FROM BACK REMOVED -ENT SURGERY PMH: -CHRONIC NECK PAIN WITH CERVICAL RADICULOPATHY -RESTLESS LEG SYNDROME -CHRONIC BACK PAIN -T12 COMPRESSION WITH KYPHOPLASTY Physical Exam Vital Signs Vital Signs - First Documented 08/27/19 07:35 Temp 36.4 Pulse 75 Resp 18 B/P (MAP) 124/99 (107) Pulse Ox 99 O2 Delivery Nasal Cannula O2 Flow Rate 2.00 Capillary Refill : Less Than 3 Seconds Height, Weight, BMI Height: 5'4.00" Weight: 215lbs. 0oz. 97.421503qh; 39.00 BMI Method:Stated General Appearance: no apparent distress, obese HEENT: PERRL/EOMI Neck: non-tender Cardiovascular: normal peripheral pulses, regular rate, rhythm, no murmur Respiratory: normal breath sounds Peripheral Pulses: 2+ Dorsalis Pedis (R), 2+ Left Dors-Pedis (L), 2+ Radial Pulses (R), 2+ Radial Pulses (L) Gastrointestinal: non tender, soft Back: no CVA tenderness, other (LOWER BACK TENDERNESS, RIGHT ILIAC CREST TENDERNESS) Extremities: normal capillary refill, other (RIGHT HIP, RIGHT FEMUR, RIGHT AND LEFT KNEE TENDERNESS. NO EXTERNAL EVIDENCE OF TRAUMA. DISTAL MOTOR/SENSORY/VASCULAR INTACT. ) Neurologic/Psychiatric: auto body man II-XII nml as tested, no motor/sensory deficits, alert, normal mood/affect, oriented x 3 Skin: normal color, cyanosis Procedures/Interventions Date of ETT Placement: Apr 21, 2018 Time of ETT Placement: 174 Progress/Results/Core Measures Results/Orders My Orders Orders - JO WHATLEY DO Chest 1 View, Ap/Pa Only (08/27/19 07:35) Pelvis With Right Hip 2-3views (08/27/19 07:35) Ct Thoracic/Lumbar Spine Wo (08/27/19 07:38) Femur, Right, 2 Views (08/27/19 07:38) Ct Extremity Lower Right Wo (08/27/19 07:38) Knee, 3 Views, Bilateral (08/27/19 07:38) Vital Signs/I&O 08/27/19 07:35 Temp 36.4 Pulse 75 Resp 18 B/P (MAP) 124/99 (107) Pulse Ox 99 O2 Delivery Nasal Cannula O2 Flow Rate 2.00 Blood Pressure Mean: [address] RIGHT LOWER EXTREMITY--PER RADIOLOGIST REPORT AT 0851 FINDINGS: No acute fracture in the right proximal femur. Additionally, there is no acute fracture in the visualized aspects of the right hemipelvis. There are no features of acute full-thickness tear in the musculature or tendons around the right hip. No pelvic hematoma. No osteonecrosis femoral heads. IMPRESSION: 1. No fracture about the right hip. CT THORACIC AND LUMBAR SPINE--PER DR. PEDERSEN VIA PHONE AT 0854 IMPRESSION: 1. There is no evidence for an acute bony abnormality. If clinical concern regarding an underlying abnormality persists and further imaging is desired, then a nuclear medicine bone scan would be recommended. The patient does have a defibrillator device in place and this would preclude further evaluation by MRI. 2. Post-kyphoplasty changes at T12 seen previously appear stable. 3. These results were discussed with Dr. Jo Whatley in the Emergency Room. XRAYS PELVIS AND RIGHT HIP--NO ACUTE PROCESS XRAYS RIGHT FEMUR--NO ACUTE PROCESS XRAYS RIGHT KNEE--NO ACUTE PROCESS XRAYS LEFT KNEE--NO ACUTE PROCESS CXR--NO ACUTE PROCESS ALL PER RADIOLOGIST REPORTS AT 0923 Reviewed: Reviewed by Me Departure Impression Primary Impression: S/P FALL FROM STANDING Additional Impressions: Contusion of right hip LOW BACK STRAIN Exacerbation of chronic back pain BILATERAL KNEE CONTUSIONS Disposition: 01 HOME, SELF-CARE Condition: Stable Departure-Patient Inst. Referrals: NANNETTE REVELES DO (PCP/Family) Primary Care Physician Patient Instructions: Contusion (DC), Preventing Falls in the Older Adult Add. Discharge Instructions: CONTINUE YOUR REGULAR MEDICATIONS PRESCRIBED TAKE BACLOFEN ( MUSCLE RELAXANT) AND MELOXICAM ( PAIN MEDICATION/ANTI- INFLAMMATORY) PRESCRIBED ACTIVITIES TOLERATED FOLLOW UP WITH YOUR DR IN 1 WEEK IF NO BETTER All discharge instructions reviewed with patient and/or family. Voiced understanding. JO WHATLEY DO Aug 27, 2019 08:17
--- NOTE | 2019-08-27 08:32 | Diagnostic Imaging Report ---
PROCEDURE: CT right lower extremity without contrast. TECHNIQUE: Axially acquired CT was obtained through the right lower extremity without intravenous contrast. Coronal and sagittal reformations were also performed. Auto Exposure Controls were utilized during the CT exam to meet ALARA standards for radiation dose reduction. INDICATION: Right hip pain after fall. COMPARISON: None available. FINDINGS: No acute fracture in the right proximal femur. Additionally, there is no acute fracture in the visualized aspects of the right hemipelvis. There are no features of acute full-thickness tear in the musculature or tendons around the right hip. No pelvic hematoma. No osteonecrosis femoral heads. IMPRESSION: 1. No fracture about the right hip. Dictated by: Dictated on workstation # [id number]
--- NOTE | 2019-08-27 08:51 | Diagnostic Imaging Report ---
PROCEDURE: CT thoracic and lumbar spine without contrast. TECHNIQUE: Multiple contiguous axial images were obtained through the thoracic and lumbar spine without the use of intravenous contrast. Sagittal and coronal reformations were then performed. All CT scans use one or more of the following dose optimizing techniques: automated exposure control, MA and/or KvP adjustment based on a patient size and exam type, or iterative reconstruction. INDICATION: Fell, back pain The previous CT chest exam of 06/24/2019 noted post-kyphoplasty changes involving T12. On this exam those findings are again evident and do not appear to have changed significantly. There is compression of the ventral aspect of the thecal sac at the T11-T12 level due to the compressed vertebral body of T12 and there is moderate central stenosis at this level. These findings are similar to the prior exam. The remainder of the thoracic and lumbar spine is unremarkable for an acute abnormality. No other fracture is noted. There is moderate degenerative disc and bony disease at L3-L4 and L4-L5 The lungs where visualized are generally clear. There is no sign of a paraspinal mass. IMPRESSION: 1. There is no evidence for an acute bony abnormality. If clinical concern regarding an underlying abnormality persists and further imaging is desired, then a nuclear medicine bone scan would be recommended. The patient does have a defibrillator device in place and this would preclude further evaluation by MRI. 2. Post-kyphoplasty changes at T12 seen previously appear stable. 3. These results were discussed with Dr. Jo Whatley in the Emergency Room. Dictated by: Dictated on workstation # [id number]
--- NOTE | 2019-08-27 09:00 | Diagnostic Imaging Report ---
EXAMINATION: Pelvis and right hip at 8:23 AM INDICATION: Fell, hip pain Single AP view of the pelvis and AP and lateral views of the right hip were obtained. The CT right hip exam performed earlier today failed to show any sign of an acute bony abnormality. On this exam, there is no fracture, dislocation or acute bony abnormality evident either. There is moderate degenerative disease involving the hip and sacroiliac joints. These findings are unchanged when compared to the prior exam of 06/23/2019. The soft tissues are unremarkable. IMPRESSION: There is no evidence for an acute bony abnormality. Dictated by: Dictated on workstation # [id number]
--- NOTE | 2019-08-27 09:02 | Diagnostic Imaging Report ---
INDICATION: Right hip pain COMPARISON: CT of the right hip performed earlier same day. TECHNIQUE: AP and lateral views of the right femur were obtained. FINDINGS: There is no acute fracture involving the right femur. No periosteal reaction or concerning focal osseous lesion. The hip and knee are normal in alignment. No soft tissue gas or radiopaque foreign body. IMPRESSION: No acute fracture in the right femur. Dictated by: Dictated on workstation # [id number]
--- NOTE | 2019-08-27 09:02 | Diagnostic Imaging Report ---
Supine chest at 821 hours. INDICATION: Fell. FINDINGS: The heart is borderline enlarged but the heart does seem less prominent than noted on the prior exam of 06/24/2019. Left-sided defibrillator device seen on the previous study is again evident and no different. The lungs are clear. There is no sign of failure, pneumonia or pleural effusion. The mediastinum is not widened. The osseous structures are intact. The orthopedic hardware overlying the lower cervical spine with post-kyphoplasty changes involving T12 seen previously are again evident and no different. IMPRESSION: There is no evidence for an acute cardiopulmonary abnormality. Dictated by: Dictated on workstation # [id number]
--- NOTE | 2019-08-27 09:08 | Diagnostic Imaging Report ---
EXAMINATION: Bilateral knees at 8:20 AM INDICATION: Fell, knee pain Three views of both knee joints were obtained. There are no prior studies available for comparison. There is no fracture, dislocation or acute bony abnormality evident. There is mild narrowing of the medial compartment of each knee joint and of the patellofemoral spaces. The lateral compartments are fairly well-maintained. The soft tissues are unremarkable. IMPRESSION: There is no evidence for an acute bony abnormality. Dictated by: Dictated on workstation # [id number]
--- NOTE | 2019-08-27 09:35 | NUR ---
Discussed dc paperwork with pt. Pt wearing 2l o2 which is her normal. Pt asked if her ride had oxygen tank with them. Pt stated that they did not and that she did not need oyxgen to make it home. Education provided about the need to have o2 at all times if prescribed by physician. Pt stated she did not need it and took off nasal cannula.
[2019-08-27 09:38] VITALS: BP 131/73
== END 2019-08-27 09:38 | disposition home or self-care (01) ==
LOC: EDUNIT# 07:33 → ER 07:35
DX: S39.012A Strain of muscle, fascia and tendon of lower back, initial encounter (principal); S70.01XA Contusion of right hip, initial encounter; S80.02XA Contusion of left knee, initial encounter; S80.01XA Contusion of right knee, initial encounter; G89.29 Other chronic pain; J44.9 Chronic obstructive pulmonary disease, unspecified; I10 Essential (primary) hypertension; E11.42 Type 2 diabetes mellitus with diabetic polyneuropathy; I25.10 Atherosclerotic heart disease of native coronary artery without angina pectoris; K21.9 Gastro-esophageal reflux disease without esophagitis; N39.0 Urinary tract infection, site not specified; M54.2 Cervicalgia; M25.519 Pain in unspecified shoulder; M54.9 Dorsalgia, unspecified; F41.9 Anxiety disorder, unspecified; F32.9 Major depressive disorder, single episode, unspecified; Z88.0 Allergy status to penicillin; Z88.2 Allergy status to sulfonamides; Z88.6 Allergy status to analgesic agent; Z88.8 Allergy status to other drugs, medicaments and biological substances; Z79.4 Long term (current) use of insulin; Z77.22 Contact with and (suspected) exposure to environmental tobacco smoke (acute) (chronic); Z95.810 Presence of automatic (implantable) cardiac defibrillator; Z82.49 Family history of ischemic heart disease and other diseases of the circulatory system; W01.0XXA Fall on same level from slipping, tripping and stumbling without subsequent striking against object, initial encounter
CPT/HCPCS: 71045; 72128; 72131; 73552; 73700

== ENCOUNTER 2019-09-03 15:40 | Emergency (ER) | payer MEDICARE ==
[~2019-09-03] VITALS: Ht 160 cm; Wt 101.0 kg
[~2019-09-03 15:40] MED LIST changes: -AZIT500T PO
[2019-09-03] MEDS ORDERED: RX-ALBUTEROL INHALER 8 GM HFA (VENTOLIN) IH STA (15:58)
[2019-09-03 16:08] LABS: BASOPHILS # (AUTO) 0.1 10^3/uL (0.0-0.1); BASOPHILS % (AUTO) 1 % (0-10); EOSINOPHILS # (AUTO) 0.2 10^3/uL (0.0-0.3); EOSINOPHILS % (AUTO) 3 % (0-10); HEMATOCRIT 41 % (35-52); HEMOGLOBIN 13.7 G/DL (11.5-16.0); LYMPHOCYTES % (AUTO) 26 % (12-44); MEAN CORPUSCULAR HEMOGLOBIN 29 PG (25-34); MEAN CORPUSCULAR HGB CONC 33 G/DL (32-36); MEAN CORPUSCULAR VOLUME 88 FL (80-99); MEAN PLATELET VOLUME 9.6 FL (7.4-10.4); MONOCYTES # (AUTO) 0.5 X 10^3 (0.0-1.0); MONOCYTES % (AUTO) 7 % (0-12); NEUTROPHILS # (AUTO) 4.9 X 10^3 (1.8-7.8); NEUTROPHILS % (AUTO) 64 % (42-75); PLATELET COUNT 254 10^3/uL (130-400); WHITE BLOOD COUNT 7.7 10^3/uL (4.3-11.0)
--- NOTE | 2019-09-03 16:10 | ED Respiratory ---
General Stated Complaint: WEAKNESS,DIZZINESS Source: patient Exam Limitations: no limitations (ISRAEL ODELL) History of Present Illness Date Seen by Provider: Sep 03, 2019 Time Seen by Provider: 15:33 Initial Comments History presents to ER by wheelchair from [place] with chief complaint of feeling short of breath and anxious. She was getting a CT scan outpatient by her primary care doctor Dr. Reid after having a fall one week ago and and having struck her head but not losing consciousness. She is on aspirin. She's not on blood thinners. 2 days after that she fell on the bathtub. She has a history of anxiety and fibromyalgia and high blood pressure, diabetes and GERD. She's not having any pain right now. She doesn't history of COPD and feels short of breath but she has not been feeling the need for her breathing treatments lately. She does have a history of heart failure and feels like her legs are little more swollen than usual. She takes Lasix and potassium but she says in the last 2-3 days she says when she takes the Lasix she does not produce much urine. No chest pain, nausea, cough. She had a temperature of 100.1 one week ago. None since then. No body aches, malaise or weakness. She has a c/o pain in her Veins. No place in particular. (ISRAEL ODELL) Allergies and Home Medications Allergies Coded Allergies: Penicillins (Unverified Allergy, Severe, Pt has received Cefepime & Ceftriaxone in the past w/o issue, 07/21/18) SWELLING, RASH, ITCHING Sulfa (Sulfonamide Antibiotics) (Verified Allergy, Mild, 07/21/18) RASH aspirin (Verified Adverse Reaction, Mild, ASPIRIN SENSITIVE, 07/21/18) UPSET STOMACH sumatriptan (Verified Adverse Reaction, Mild, PALPITATIONS, 07/21/18) IRRITABLE Home Medications Azithromycin 500 Mg Tablet, 500 MG PO DAILY Prescribed by: PETER WHATLEY on 09/03/191855 Cefdinir 300 Mg Capsule, 300 MG PO BID Prescribed by: PETER WHATLEY on 09/03/191855 Cholecalciferol (Vitamin D3) 125 Mcg Tablet, 250 MCG PO 1800, (Reported) Diltiazem HCl 240 Mg Cap.er.24h, 240 MG PO DAILY, (Reported) Escitalopram Oxalate 10 Mg Tablet, 10 MG PO DAILY, (Reported) LAST FILLED 02-02-2019 #90/90 DAYS SUPPLY Insulin NPH Human Isophane 100 Unit/1 Ml Vial, 25 UNIT SQ BID Prescribed by: NANNETTE REID on 06/29/19 124 Loratadine 10 Mg Tablet, 10 MG PO DAILY Prescribed by: NANNETTE REID on 06/29/19 124 Lorazepam 0.5 Mg Tablet, 0.5 MG PO QID Prescribed by: NANNETTE REID on 06/29/19 124 Magnesium Oxide 400 Mg Tablet, 800 MG PO DAILY, (Reported) TAKES 2 (400MG) TABS Melatonin 3 Mg Tablet, 6 MG PO HS PRN for SLEEP, (Reported) TAKES 2 (3MG) TABS Methylprednisolone 4 Mg Tab.ds.pk, 4 MG PO UD PER DOSE PACK INSTRUCTIONS Prescribed by: PETER WHATLEY on 09/03/19 185 Metoprolol Tartrate 50 Mg Tablet, 100 MG PO BID replaces 25mg dose Prescribed by: NANNETTE REID on 06/29/19 124 Montelukast Sodium 10 Mg Tablet, 10 MG PO HS Prescribed by: NANNETTE REID on 06/29/19 124 Omeprazole 40 Mg Capsule.dr, 40 MG PO BID, (Reported) Pramipexole Di-HCl 1 Mg Tablet, 1 MG PO HS, (Reported) LAST FILLED 02-16-2019 #90/90 DAY SUPPLT Patient Home Medication List Home Medication List Reviewed: Yes (ISRAEL ODELL) Review of Systems Review of Systems Constitutional: No chills, No malaise, No weakness EENTM: No ear discharge, No ear pain Respiratory: No cough; short of breath Cardiovascular: No chest pain; edema; No palpitations, No syncope Gastrointestinal: No abdominal pain, No constipation, No diarrhea, No nausea Genitourinary: No discharge, No dysuria Musculoskeletal: No back pain, No joint pain Skin: No pruritus Psychiatric/Neurological: Denies Headache, Denies Numbness, Denies Paresthesia (ISRAEL ODELL) All Other Systems Reviewed Negative Unless Noted: Yes (ISRAEL ODELL) Past Jmdnwku-Lqxrms-Ngpndw Hx Patient Social History Alcohol Use: Denies Use Recreational Drug Use: No Smoking Status: Current Everyday Smoker 2nd Hand Smoke Exposure: Yes Recent Hopitalizations: No (ISRAEL ODELL) Immunizations Up To Date Tetanus Booster (TDap): Unknown PED Vaccines UTD: No Date of Pneumonia Vaccine: Apr 04, 2018 Date of Influenza Vaccine: Dec 31, 2018 (ISRAEL ODELL) Seasonal Allergies Seasonal Allergies: Yes (ISRAEL ODELL) Past Medical History Surgeries: Yes (LAP CORNELIUS; C-SPINE FUSION/DISCECTOMY C5-C6 ) Abdominal, Appendectomy, Cardiac, Defibrillator, Eye Surgery, Gallbladder, Hysterectomy, Oophorectomy, Orthopedic, Pacemaker, Tonsillectomy Respiratory: Yes (O2 AT HS AND PRN) Asthma, Pneumonia, Chronic Bronchitis, Sleep Apnea, COPD Currently Using CPAP: No Currently Using BIPAP: No Cardiac: Yes (PACEMAKER/DEFIBRILLATOR;CARDIAC ARREST DURING ENT SURGERY;PSVT/PALPITATIONS) Coronary Artery Disease, High Cholesterol, Hypertension, Irregular Heartbeat Neurological: Yes (PERIPHERAL NEUROPATHY HANDS/FEET; CHRONIC HEADACHES) Headaches /Migraines, Neuropathy 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 Disorders: No Female 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 Disorders: Denies 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 PAIN) Degenerate Disk Disease, Arthritis, Fibromyalgia, Chronic Back Pain, Fractures Endocrine: Yes Diabetes, Insulin dep, Diabetes, Non-Insulin dep HEENT: Yes (S/P BILATERAL CATARACT SURGERY + YAG PROCEDURE;ENT SURG WITH CARDIAC ARREST) Cataract Loss of Vision: Denies Hearing Impairment: Denies Cancer: No Psychosocial: Yes Anxiety, Depression Integumentary: Yes (NELIA INTERTRIGO) Pruritis Blood Disorders: No Adverse Reaction/Blood Tranf: No (ISRAEL ODELL) Family Medical History Alzheimer's disease 19 FATHER Cardiovascular disease 19 FATHER 19 MOTHER Completed stroke 19 MOTHER Hypertension 19 FATHER 19 MOTHER Myocardial infarction 19 FATHER 19 MOTHER No Family History of: Diabetes mellitus PSH: -T12 KYPHOPLASTY -C5-C6 CERVICAL DISCECTOMY WITH FUSION 04/2018 -LAP CORNELIUS FUNDOPLICATION -EGD'S/ESOPHAGEAL DILATIONS/COLONOSCOPIES/POLYPECTOMIES -PACEMAKER/DEFIBRILLATOR -HYSTERECTOMY/BSO -CHOLECYSTECTOMY -APPENDECTOMY -TONSILLECTOMY -OVARIAN CYST SURGERIES X 4 -CYST FROM BACK REMOVED -ENT SURGERY PMH: -CHRONIC NECK PAIN WITH CERVICAL RADICULOPATHY -RESTLESS LEG SYNDROME -CHRONIC BACK PAIN -T12 COMPRESSION WITH KYPHOPLASTY (ISRAEL ODELL) Physical Exam Vital Signs - First Documented 09/03/19 15:40 Temp 36.9 Pulse 102 Resp 25 B/P (MAP) 166/87 (113) Pulse Ox 96 O2 Delivery Room Air (GABI,PETER K DO) Capillary Refill : (ISRAEL ODELL) Height: 5'4.00" Weight: 215lbs. 0oz. 97.305445fn; 39.00 BMI Method:Stated General Appearance: WD/WN, no apparent distress Eyes: Bilateral Eye Normal Inspection, Bilateral Eye PERRL, Bilateral Eye EOMI HEENT: PERRL/EOMI, normal ENT inspection, TMs normal, pharynx normal Neck: non-tender, full range of motion, supple, normal inspection Respiratory: chest non-tender, lungs clear, normal breath sounds, no respiratory distress, no accessory muscle use Cardiovascular: normal peripheral pulses, regular rate, rhythm, no edema Gastrointestinal: normal bowel sounds, non tender, soft Extremities: normal capillary refill, pedal edema (1+ BLE) Neurologic/Psychiatric: no motor/sensory deficits, alert, normal mood/affect, oriented x 3 Skin: normal color, warm/dry (ISRAEL ODELL) Procedures/Interventions Date of ETT Placement: Apr 21, 2018 Time of ETT Placement: 174 (ISRAEL ODELL) Progress/Results/Core Measures Suspected Sepsis SIRS Temperature: Pulse: Respiratory Rate: Laboratory Tests 09/03/19 15:50: White Blood Count 7.7 Blood Pressure / Mean: Laboratory Tests 09/03/19 15:50: Creatinine 0.89, INR Comment 0.8, Platelet Count 254, Total Bilirubin 0.3 (ISRAEL ODELL) Results/Orders Lab Results Laboratory Tests Test 09/03/19 15:50 09/03/19 16:15 09/03/19 18:45 Range/Units White Blood Count 7.7 4.3-11.0 10^3/uL Red Blood Count 4.73 4.35-5.85 10^6/uL Hemoglobin 13.7 11.5-16.0 G/DL Hematocrit 41 35-52 % Mean Corpuscular Volume 88 80-99 FL Mean Corpuscular Hemoglobin 29 25-34 PG Mean Corpuscular Hemoglobin Concent 33 32-36 G/DL Red Cell Distribution Width 14.0 10.0-14.5 % Platelet Count 254 130-400 10^3/uL Mean Platelet Volume 9.6 7.4-10.4 FL Neutrophils (%) (Auto) 64 42-75 % Lymphocytes (%) (Auto) 26 12-44 % Monocytes (%) (Auto) 7 0-12 % Eosinophils (%) (Auto) 3 0-10 % Basophils (%) (Auto) 1 0-10 % Neutrophils # (Auto) 4.9 1.8-7.8 X 10^3 Lymphocytes # (Auto) 2.0 1.0-4.0 X 10^3 Monocytes # (Auto) 0.5 0.0-1.0 X 10^3 Eosinophils # (Auto) 0.2 0.0-0.3 10^3/uL Basophils # (Auto) 0.1 0.0-0.1 10^3/uL Prothrombin Time 11.1 L 12.2-14.7 SEC INR Comment 0.8 0.8-1.4 Activated Partial Thromboplast Time > 200 *H 24-35 SEC D-Dimer 0.87 H 0.00-0.49 UG/ML Sodium Level 140 135-145 MMOL/L Potassium Level 4.0 3.6-5.0 MMOL/L Chloride Level 102 98-107 MMOL/L Carbon Dioxide Level 26 21-32 MMOL/L Anion Gap 12 5-14 MMOL/L Blood Urea Nitrogen 17 7-18 MG/DL Creatinine 0.89 0.60-1.30 MG/DL Estimat Glomerular Filtration Rate > 60 BUN/Creatinine Ratio 19 Glucose Level 215 H 70-105 MG/DL Calcium Level 9.6 8.5-10.1 MG/DL Corrected Calcium 9.6 8.5-10.1 MG/DL Total Bilirubin 0.3 0.1-1.0 MG/DL Aspartate Amino Transf (AST/SGOT) 25 5-34 U/L Alanine Aminotransferase (ALT/SGPT) 26 0-55 U/L Alkaline Phosphatase 106 40-136 U/L Troponin I < 0.028 <0.028 NG/ML C-Reactive Protein High Sensitivity 0.97 H 0.00-0.50 MG/DL B-Type Natriuretic Peptide 12.0 <100.0 PG/ML Total Protein 7.0 6.4-8.2 GM/DL Albumin 4.0 3.2-4.5 GM/DL Urine Color YELLOW Urine Clarity CLEAR Urine pH 6.0 5-9 Urine Specific [place] 1.020 1.016-1.022 Urine Protein NEGATIVE NEGATIVE Urine Glucose (UA) TRACE H NEGATIVE Urine Ketones NEGATIVE NEGATIVE Urine Nitrite NEGATIVE NEGATIVE Urine Bilirubin NEGATIVE NEGATIVE Urine Urobilinogen 0.2 < = 1.0 MG/DL Urine Leukocyte Esterase NEGATIVE NEGATIVE Urine RBC (Auto) NEGATIVE NEGATIVE Urine RBC NONE /HPF Urine WBC NONE /HPF Urine Squamous Epithelial Cells RARE /HPF Urine Crystals NONE /LPF Urine Bacteria NEGATIVE /HPF Urine Casts NONE /LPF Urine Mucus NEGATIVE /LPF Urine Culture Indicated NO (PETER WHATLEY DO) Medications Given in ED Current Medications Medications Dose Ordered Sig/Alannah Route Start Time Stop Time Status Last Admin Dose Admin Iohexol 100 ml ONCE ONCE IV 09/03/19 18:15 09/03/19 18:16 DC 09/03/19 18:31 82 ML Sodium Chloride 10 ml NEEDED PRN IV 09/03/19 18:15 09/03/19 18:31 10 ML Sodium Chloride 100 ml ONCE ONCE IV 09/03/19 18:15 09/03/19 18:16 DC 09/03/19 18:31 80 ML Sodium Chloride 500 ml @ 0 mls/hr Q0M ONCE IV 09/03/19 18:03 09/03/19 18:05 DC 09/03/19 18:12 500 MLS/HR (CELIA WHATLEYA Anne Marie DO) Vital Signs/I&O 09/03/19 15:40 Temp 36.9 Pulse 102 Resp 25 B/P (MAP) 166/87 (113) Pulse Ox 96 O2 Delivery Room Air (GABIPETER Anne Marie DO) Vital Signs/I&O Capillary Refill : (ISRAEL ODELL) Progress Note #1: Time: 16:15 Progress Note Plan to check a BNP and chest x-ray looking for evidence of fluid overload. We'll get some basic labs looking for anemia as her other causes of shortness of air. Lungs sound clear we'll give her 2 puffs of albuterol MDI. Progress Note #2: Time: 18:20 Progress Note Plan to repeat PTT and get a CTA Chest. Turn care of the patient over to Dr. Whatley. Patient is stating the same level shortness of air she is always had for the past few months that is being worked up outpatient. Her PTT came back exceptionally high and it is uncertain why that would be because her PT-INR is normal LFTs and normal. There is no clue in the history as to why her liver synthetic processes might be damaged. Plan to repeat PTT get an IV so we can do a CT angiogram to rule out a very unlikely pulmonary embolism. Her heart rate has stayed consistently around 100 and her sats around 94-95%. She is oxygen- dependent from time to time and suspect that would more likely explain why her vital signs are when they are. (ISRAEL ODELL) Progress Note : Progress Note ASSUMED CARE FROM DR. ODELL PT HAS NO COMPLAINTS AT THIS TIME O2 SATS UPPER 90'S ON ROOM AIR. VITALS STABLE, NO TACHYCARDIA OR TACHYPNEA NO DYSPNEA LUNGS CLEAR (PETER WHATLEY DO) ECG Initial ECG Impression Date: Sep 03, 2019 Initial ECG Impression Time: 15:47 Initial ECG Rate: 94 Initial ECG Rhythm: Normal Sinus Initial ECG Intervals: Normal Initial ECG Impression: Normal, Nonspecific Changes Initial ECG Comparisson: Unchanged Comment No clinically relevant ST T-wave elevation or depression. (ISRAEL ODELL) Diagnostic Imaging Diagonstic Imaging: Xray Plain Films/CT/US/NM/MRI: chest (1v) Comments [place], [place] NAME: BRAYDON ARBOLEDA [facility] REC#: [id number] PT STATUS: REG ER : 1945 PHYSICIAN: ISRAEL ODELL MD ADMIT DATE: 09/03/19/ER Signed Date of Exam:09/03/19 CHEST 1 VIEW, AP/PA ONLY Weakness and dizziness Portable chest 4:21 PM There is a dual-chamber pacemaker with ICD. Heart size and pulmonary vascularity are normal. Lungs are clear. There are no effusions or pneumothoraces. IMPRESSION: Negative chest Dictated by: Dictated on workstation # [id number] Dict: 09/03/19 1627 Trans: 09/03/19 1627 TB [id number] Interpreted by: CHERRIE SAAVEDRA MD Electronically signed by: CHRERIE SAAVDERA MD 09/03/19 1627 Reviewed: Reviewed by Az Diagonstic Imaging: CT Plain Films/CT/US/NM/MRI: head Comments [facility], [place] NAME: BRAYDON ARBOLEDA [facility] REC#: [id number] PT STATUS: REG CLI : 1945 PHYSICIAN: NANNETTE REID DO ADMIT DATE: 09/03/19/RAD Signed Date of Exam:09/03/19 CT HEAD WO PROCEDURE: CT head without contrast. TECHNIQUE: Multiple contiguous axial images were obtained through the brain without the use of intravenous contrast. Auto Exposure Controls were utilized during the CT exam to meet ALARA standards for radiation dose reduction. INDICATION: Head injury from a fall There are bilateral subdural effusions. These are low density. There is no evidence of acute subdural hematoma. The ventricles are nondilated. There are no masses or hemorrhages. IMPRESSION: Stable bilateral subdural effusions compared to previous exam dated 11/21/2018. No fractures or acute abnormalities seen. Dictated by: Dictated on workstation # [id number] Dict: 09/03/19 1543 Trans: 09/03/19 1545 [id number] Interpreted by: CHERRIE SAAVEDRA MD Electronically signed by: CHERRIE SAAVEDRA MD 09/03/19 1545 Reviewed: Reviewed by Az Diagonstic Imaging: CT (angiogram) Plain Films/CT/US/NM/MRI: chest Comments [facility]. [place], [place] NAME: NKECHIBRAYDON Felicita [facility] REC#: [id number] PT STATUS: REG ER : 1945 PHYSICIAN: ISRAEL ODELL MD ADMIT DATE: 09/03/19/ER Signed Date of Exam:09/03/19 CT ANGIO CHEST W EXAMINATION: CT angiography of the chest. TECHNIQUE: Contrast enhanced thin section helical images were obtained through the chest with intravenous contrast timed for the optimal opacification of the arterial structures per CTA protocol. Post-processing, reconstructions and interpretation of angiographic images of the vessels was performed. 3D MIP reconstructions were performed and reviewed. All CT scans use one or more of the following dose optimizing techniques: automated exposure control, MA and/or KvP adjustment based on patient size and exam type or iterative reconstruction. HISTORY: Dizziness and weakness. COMPARISON: 06/24/2019. FINDINGS: There is no pulmonary embolism. A pacemaker is present. There is no edema or pneumonia. No pleural effusion. No pneumothorax. Mild tree-in-bud nodules are seen in the right upper lobe likely representing mild aspiration. Heart size is normal. There are mild coronary artery calcifications. No pericardial effusion. Aorta is normal in caliber. There is no axillary or supraclavicular lymphadenopathy. There is no mediastinal lymphadenopathy. Limited views of the upper abdomen show changes of cholecystectomy. There are no suspicious osseus lesions. There has been vertebroplasty of the lower thoracic compression fracture. IMPRESSION: No pulmonary embolism, mild tree-in-bud nodules in the posterior right upper lobe likely representing mild aspiration. Dictated by: Dictated on workstation # [id number] Dict: 09/03/19 1840 Trans: 09/03/19 [facility] [id number] Interpreted by: LESLYE MCWILLIAMS MD Electronically signed by: LESLYE MCWILLIAMS MD 09/03/191900 Reviewed: Reviewed by Me (ISRAEL ODELL) Comments CT CHEST ANGIOGRAM---PER RADIOLOGIST REPORT AT 1850 IMPRESSION: No pulmonary embolism, mild tree-in-bud nodules in the posterior right upper lobe likely representing mild aspiration. Reviewed: Reviewed by (PETER WHATLEY DO) Transfer of Care Transfer of Care Time: 18:25 Care transferred to: Dr. Whatley (ISRAEL ODELL) Departure Impression Primary Impression: Dyspnea on exertion Additional Impression: POSSIBLE MILD ASPIRATION PNEUMONIA Disposition: HOME, SELF-CARE Condition: Stable Departure-Patient Inst. Referrals: NANNETTE REID DO (PCP/Family) Primary Care Physician Patient Instructions: Aspiration Pneumonia (DC), Shortness of Breath (Dyspnea) Add. Discharge Instructions: CONTINUE YOUR CURRENT MEDICATIONS PRESCRIBED FOLLOW UP WITH DR. REID IN 3-4 DAYS FOR FURTHER CARE, RETURN TO ER IF WORSE Scripts Azithromycin (Zithromax) 500 Mg Tablet 500 MG PO DAILY for 5 Days, #5 TAB Prov: PETER WHATLEY DO 09/03/19 Methylprednisolone (Medrol) 4 Mg Tab.ds.pk 4 MG PO UD for 6 Days, #21 PKG PER DOSE PACK INSTRUCTIONS Prov: PETER WHATLEY DO 09/03/19 Cefdinir (Cefdinir) 300 Mg Capsule 300 MG PO BID, #20 CAP Prov: PETER WHATLEY DO 09/03/19 Copy Copies To 1: NANNETTE REID TITUS J Sep 03, 2019 16:10 PETER WHATLEY DO Sep 03, 2019 18:38
[2019-09-03 16:18] LABS: CHLORIDE 102 MMOL/L (98-107); SODIUM 140 MMOL/L (135-145)
[2019-09-03 16:19] LABS: CALCIUM 9.6 MG/DL (8.5-10.1)
[2019-09-03 16:20] LABS: BILIRUBIN,URINE NEGATIVE (NEGATIVE); CLARITY,URINE CLEAR; COLOR,URINE YELLOW; GLUCOSE, URINE (UA) TRACE (NEGATIVE); KETONES,URINE NEGATIVE (NEGATIVE); LEUKOCYTE ESTERASE ,URINE NEGATIVE (NEGATIVE); NITRITE,URINE NEGATIVE (NEGATIVE); PROTEIN,URINE NEGATIVE (NEGATIVE)
[2019-09-03 16:20] LABS: GLUCOSE 215 MG/DL (70-105)
[2019-09-03 16:21] LABS: CARBON DIOXIDE 26 MMOL/L (21-32)
[2019-09-03 16:22] LABS: BILIRUBIN,TOTAL 0.3 MG/DL (0.1-1.0)
[2019-09-03 16:24] LABS: ALKALINE PHOSPHATASE 106 U/L (40-136); CREATININE SERUM 0.89 MG/DL (0.60-1.30); GFR ESTIMATED > 60
[2019-09-03 16:25] LABS: BUN/CREATININE RATIO 19
[2019-09-03 16:27] LABS: ALANINE AMINOTRANSFERASE 26 U/L (0-55); FIBRIN DEGRADATION PRODUCTS 0.87 UG/ML (0.00-0.49); INR 0.8 (0.8-1.4); PROTHROMBIN TIME PATIENT 11.1 SEC (12.2-14.7)
[2019-09-03 16:28] LABS: PARTIAL THROMBOPLASTIN TIME > 200 SEC (24-35)
--- NOTE | 2019-09-03 16:28 | Diagnostic Imaging Report ---
Weakness and dizziness Portable chest 4:21 PM There is a dual-chamber pacemaker with ICD. Heart size and pulmonary vascularity are normal. Lungs are clear. There are no effusions or pneumothoraces. IMPRESSION: Negative chest Dictated by: Dictated on workstation # [id number]
[2019-09-03 16:33] LABS: BACTERIA,URINE NEGATIVE /HPF; SQUAMOUS EPITHELIAL CELL,UR RARE /HPF
--- NOTE | 2019-09-03 16:33 | NUR ---
Pt reports "I have stridor's cough and my throat constricts. The inhaler irritates it." Pt refused administration of inhaler.
[2019-09-03] MEDS ORDERED: NS IV 500 ML 500 ML IV ONE (18:03)
[2019-09-03] MEDS ORDERED: NS 100 ML (IVPB) BAG IV ONE (18:15)
[2019-09-03] MEDS ORDERED: IOHEXOL 350 MG/ML 100 ML (OMNIPAQUE 350) VIAL IV ONE (18:15)
[2019-09-03] MEDS ORDERED: CATHETER FLUSH 10 ML SYR IV PRN (18:15)
[2019-09-03] MEDS ORDERED: HOLD METFORMIN - RECEIVED CONTRAST 20 ML VIAL IV SCH (18:15)
--- NOTE | 2019-09-03 18:45 | Diagnostic Imaging Report ---
EXAMINATION: CT angiography of the chest. TECHNIQUE: Contrast enhanced thin section helical images were obtained through the chest with intravenous contrast timed for the optimal opacification of the arterial structures per CTA protocol. Post-processing, reconstructions and interpretation of angiographic images of the vessels was performed. 3D MIP reconstructions were performed and reviewed. All CT scans use one or more of the following dose optimizing techniques: automated exposure control, MA and/or KvP adjustment based on patient size and exam type or iterative reconstruction. HISTORY: Dizziness and weakness. COMPARISON: 06/24/2019. FINDINGS: There is no pulmonary embolism. A pacemaker is present. There is no edema or pneumonia. No pleural effusion. No pneumothorax. Mild tree-in-bud nodules are seen in the right upper lobe likely representing mild aspiration. Heart size is normal. There are mild coronary artery calcifications. No pericardial effusion. Aorta is normal in caliber. There is no axillary or supraclavicular lymphadenopathy. There is no mediastinal lymphadenopathy. Limited views of the upper abdomen show changes of cholecystectomy. There are no suspicious osseus lesions. There has been vertebroplasty of the lower thoracic compression fracture. IMPRESSION: No pulmonary embolism, mild tree-in-bud nodules in the posterior right upper lobe likely representing mild aspiration. Dictated by: Dictated on workstation # [id number]
[2019-09-03] MEDS ORDERED: AZIT500T PO (18:56)
[2019-09-03] MEDS ORDERED: CEFD300C3 PO (18:56)
[2019-09-03] MEDS ORDERED: METH4TAB PO (18:56)
[2019-09-03] MEDS ORDERED: cefTRIAXone FOR IV USE 1,000 MG in WATER (STERILE) FOR INJECTION 10 ML IV ONE (19:00)
[2019-09-03] MEDS ORDERED: methylPREDNISolone 125 MG (Solu-MEDROL) VIAL IVP ONE (19:00)
[2019-09-03] MEDS ORDERED: AZITHROMYCIN 250 MG TAB (ZITHROMAX) PO ONE (19:00)
[2019-09-03 19:25] VITALS: BP 137/80
== END 2019-09-03 19:33 | disposition home or self-care (01) ==
LOC: EDUNIT# 15:40 → ER 15:41
DX: R06.09 Other forms of dyspnea (principal); I11.0 Hypertensive heart disease with heart failure; I50.9 Heart failure, unspecified; J44.9 Chronic obstructive pulmonary disease, unspecified; I25.10 Atherosclerotic heart disease of native coronary artery without angina pectoris; E80.0 Hereditary erythropoietic porphyria; E11.40 Type 2 diabetes mellitus with diabetic neuropathy, unspecified; K21.9 Gastro-esophageal reflux disease without esophagitis; Z86.010 Personal history of colon polyps; Z87.19 Personal history of other diseases of the digestive system; M19.90 Unspecified osteoarthritis, unspecified site; M79.10 Myalgia, unspecified site; M54.9 Dorsalgia, unspecified; F41.9 Anxiety disorder, unspecified; F32.9 Major depressive disorder, single episode, unspecified; L29.9 Pruritus, unspecified; Z79.82 Long term (current) use of aspirin; Z88.0 Allergy status to penicillin; Z88.2 Allergy status to sulfonamides; Z88.8 Allergy status to other drugs, medicaments and biological substances; F17.210 Nicotine dependence, cigarettes, uncomplicated; Z98.1 Arthrodesis status; Z95.810 Presence of automatic (implantable) cardiac defibrillator; G25.81 Restless legs syndrome
CPT/HCPCS: 36415; 51701; 71045; 71275; 80053; 81000; 83880; 84484; 85025; 85379; 85610; 85730; 86141; 93005; 96361; 96374; 96375

== ENCOUNTER → 2019-09-03 | Outpatient (CLI) | payer MEDICARE ==
[~2019-09-03] MED LIST changes: +AZIT500T PO
[2019-09-03 15:38] LABS: ALBUMIN 4.1 GM/DL (3.2-4.5); CALCIUM 9.9 MG/DL (8.5-10.1); CHLORIDE 103 MMOL/L (98-107); POTASSIUM 4.2 MMOL/L (3.6-5.0); SODIUM 140 MMOL/L (135-145)
[2019-09-03 15:39] LABS: TRIGLYCERIDES 394 MG/DL (<150); VLDL CHOLESTEROL 79 MG/DL (5-40)
[2019-09-03 15:40] LABS: BASOPHILS # (AUTO) 0.1 10^3/uL (0.0-0.1); BASOPHILS % (AUTO) 1 % (0-10); EOSINOPHILS # (AUTO) 0.3 10^3/uL (0.0-0.3); EOSINOPHILS % (AUTO) 3 % (0-10); GLUCOSE 212 MG/DL (70-105); HEMATOCRIT 41 % (35-52); HEMOGLOBIN 13.6 G/DL (11.5-16.0); LYMPHOCYTES # (AUTO) 2.4 X 10^3 (1.0-4.0); LYMPHOCYTES % (AUTO) 28 % (12-44); MEAN CORPUSCULAR HEMOGLOBIN 29 PG (25-34); MEAN CORPUSCULAR HGB CONC 33 G/DL (32-36); MEAN CORPUSCULAR VOLUME 88 FL (80-99); MEAN PLATELET VOLUME 9.9 FL (7.4-10.4); MONOCYTES # (AUTO) 0.6 X 10^3 (0.0-1.0); MONOCYTES % (AUTO) 7 % (0-12); NEUTROPHILS # (AUTO) 5.5 X 10^3 (1.8-7.8); NEUTROPHILS % (AUTO) 62 % (42-75); PLATELET COUNT 261 10^3/uL (130-400); RED CELL DISTRIBUTION WIDTH 13.7 % (10.0-14.5); TOTAL PROTEIN 7.2 GM/DL (6.4-8.2); WHITE BLOOD COUNT 8.8 10^3/uL (4.3-11.0)
[2019-09-03 15:41] LABS: CARBON DIOXIDE 24 MMOL/L (21-32); ERYTHROCYTE SEDIMENTATION RATE 28 MM/HR (0-30)
[2019-09-03 15:42] LABS: BILIRUBIN,TOTAL 0.3 MG/DL (0.1-1.0)
[2019-09-03 15:44] LABS: ALKALINE PHOSPHATASE 110 U/L (40-136); CHOLESTEROL 210 MG/DL (< 200); GFR ESTIMATED > 60
[2019-09-03 15:45] LABS: BUN/CREATININE RATIO 19
[2019-09-03 15:46] LABS: HDL CHOLESTEROL 44 MG/DL (40-60)
--- NOTE | 2019-09-03 15:46 | Diagnostic Imaging Report ---
PROCEDURE: CT head without contrast. TECHNIQUE: Multiple contiguous axial images were obtained through the brain without the use of intravenous contrast. Auto Exposure Controls were utilized during the CT exam to meet ALARA standards for radiation dose reduction. INDICATION: Head injury from a fall There are bilateral subdural effusions. These are low density. There is no evidence of acute subdural hematoma. The ventricles are nondilated. There are no masses or hemorrhages. IMPRESSION: Stable bilateral subdural effusions compared to previous exam dated 11/21/2018. No fractures or acute abnormalities seen. Dictated by: Dictated on workstation # [id number]
[2019-09-03 15:47] LABS: ALANINE AMINOTRANSFERASE 26 U/L (0-55); URIC ACID 6.9 MG/DL (2.6-7.2)
[2019-09-03 16:07] LABS: FREE T4 (FREE THYROXINE) 1.17 NG/DL (0.70-1.48)
== END ==
LOC: RAD 14:37
PROVIDERS: ATTEND Family Medicine
DX: S09.90XA Unspecified injury of head, initial encounter (principal); W19.XXXA Unspecified fall, initial encounter; E11.65 Type 2 diabetes mellitus with hyperglycemia; E55.9 Vitamin D deficiency, unspecified
CPT/HCPCS: 36415; 70450; 80053; 80061; 82306; 82607; 83036; 84439; 84443; 84550; 85025; 85652

== ENCOUNTER 2019-09-04 09:19 | Emergency (ER) | payer MEDICARE ==
[~2019-09-04] VITALS: Ht 160 cm; Wt 103.0 kg
[~2019-09-04 09:19] MED LIST changes: +AZIT500T PO
--- OUTSIDE RECORDS SUMMARY | 2019-09-04 09:27 | XMS REPORT | Encounter Summary ---
Author Author [facility] Organization [facility] Address Unknown Phone Unavailable Care Team Providers Care Mechanical Facilities Technician Name Role Phone Belia Reid MD PCP Reason for Visit * Reason Comments Medication Refill Encounter Details Care Team Description Date Type Department Calvin Tripp APRN-CNS [address] [facility] Orth[facility] [address] [place] [address] [phone] Uncontrolled type 2 diabetes mellitus wi th hyperglycemia (HCC) 03/19/2019 Refill [facility] [address] [place] [address] Social History Date Tobacco Use Types Packs/Day [...] (04/01/2017 No Conchis antoine, 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
--- OUTSIDE RECORDS SUMMARY | 2019-09-04 09:27 | XMS REPORT | Clinical Summary ---
Author Author [facility] Organization [facility] Address Unknown Phone Unavailable Care Team Providers Care [employer] Name Role Phone Belia Reid MD PCP Source Comments Some departments are not documenting in the electronic medical record. If you d o not see the information that you expected, contact Release of Information in [facility] Information Management department at [phone] for further assistan ce in locating additional records.[facility] Allergies Comments Active Allergy Reactions Severity [...] y Kidney stones 08/24/2016 Overview: -- 10/15/16: Skip Miner Blasting evaluation non-obstruct ing stone. 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
--- OUTSIDE RECORDS SUMMARY | 2019-09-04 09:28 | XMS REPORT | CCD ---
Author Author Diana Reid D.O. Organization [facility] Address [address] [place] [address] Phone Care Team Providers Care [employer] Supervisor Name Role Phone Belia Reid D.O., PP Unavailable CCM Unavailable Summary Purpose Interface Exchange Insurance Providers Payer name Policy type / Coverage type Covered green party ID Effective Begin Date Effective End Date [employer] MEDICARE Medicare Part B [id number] 2019 Unknown Family History Family History data not found Social History Social History Element Codes Description Effective Dates Tobacco history SNOMED CT: 135696428 Nonsmoker 09/13/2010 Allergies, Adverse Reactions, Alerts Substance Reaction Codes Entered Date Inactivated Date Status Eggs reaction 52544016 09/15/2015 No Inactive Date Active _ Unknown 01/07/2019 No Inactive Date Active PENICILLINS Unknown 01/07/2019 No Inactive Date Active SULFA (SULFONAMIDES) rash Unknown 11/02/2010 No Inactive Mike e Active Problems Condition Codes Effective Dates Condition Status Dizziness and giddiness ICD-9: 780.4 ICD-10: R42 09/02/2019 Active Edema ICD-9: 782.3 ICD-10: R60.9 09/02/2019 Active Head trauma ICD-9: 959.01 ICD-10: S09.90XA 09/02/2019 Active History of recent fall ICD-9: V15.88 ICD-10: Z91.81 09/02/2019 Active Hyperglycemia ICD-9: 790.29 ICD-10: R73.9 09/02/2019 Active Fibromyalgia ICD-9: 729.1 ICD-10: M79.7 08/04/2013 [...] Fill Instructions baclofen 10 mg tablet RxNorm: 801815 1 Tablet(s) Oral QD for pa in/spasm 08/25/2019 09/24/2019 Active meloxicam 15 mg tablet RxNorm: 888797 1 Tablet(s) Oral QD for pain 08/25/2019 09/24/2019 Active Insulin Syringe 1 mL 29 gauge x 1/2" RxNorm: 2 s yringes daily with insulin Dx: E11.65 08/12/2019 No Stop Date Active Ativan 0.5 mg tablet RxNorm: 606401 1 Tablet(s) Oral th ree times a day for anxiety/shortness of air/stridor 07/29/2019 08/27/2019 Inactive Singulair 10 mg tablet RxNorm: 064642 1 Tablet(s) Oral QPM 07/29/19 20 01/25/2020 Active diltiazem CD 240 mg capsule,extended release 24 hr RxNorm: 8 85025 1 Capsule(s) Oral QD 07/15/2019 01/10/2020 Active metoprolol tartrate 50 mg tablet RxNorm: 153840 1 Table t(s) Oral two times a day 07/06/2019 No Stop Date Active Novolin N NPH U-100 Insulin isophane 100 unit/mL subcu taneous susp RxNorm: 495022 25 Unit(s) Subcutaneous two times a day 07/06/2019 07/06/2019 I nactive Colestid 1 gram tablet RxNorm: 8284262 1 Tablet(s) Oral two times a day for diarrhea 07/06/2019 09/04/2019 Active pramipexole 1 mg tablet RxNorm: 918475 1 Tablet(s) Oral QPM FOR RESTLESS LEGS (REPLACES REQUIP) 06/25/2019 06/19/2020 Active hydroxyzine HCl 25 mg tablet RxNorm: 343172 1 Tablet(s) Oral QPM for itching/aniety 06/25/2019 09/23/2019 Active Ativan 0.5 mg tablet RxNorm: 150197 1 Tablet(s) Oral th ree times a day for anxiety/shortness of air/stridor 06/25/2019 07/25/2019 Inactive Levaquin 500 mg tablet RxNorm: 666012 1 Tablet(s) Oral QD 06/16/2019 06/23/2019 Inactive Flagyl 500 mg tablet RxNorm: 424243 1 Tablet(s) Oral three time s a day 06/16/2019 06/23/2019 Inactive Vancocin 125 mg capsule RxNorm: 288533 1 Capsule(s) Oral four t imes a day 06/08/2019 06/18/2019 Inactive omeprazole 40 mg capsule,delayed release RxNorm: 484566 1 Capsule(s) Oral two times a day 05/26/2019 11/21/2019 Active Flagyl 500 mg tablet RxNorm: 917930 1 Tablet(s) Oral three time s a day 05/26/2019 06/05/2019 Inactive diltiazem CD 240 mg capsule,extended release 24 hr RxNorm: 8 28167 1 Capsule(s) Oral QD 05/26/2019 07/14/2019 Inactive Cipro 250 mg tablet RxNorm: 291314 1 Tablet(s) Oral two times a day 05/26/2019 06/02/2019 Inactive hydroxyzine HCl 25 mg tablet RxNorm: 587114 1 Tablet(s) Oral QPM for itching/aniety 05/21/2019 06/24/2019 Inactive metoprolol tartrate 25 mg tablet RxNorm: 583858 1 Table t(s) Oral two times a day 05/21/2019 07/05/2019 Inactive hydroxyzine HCl 25 mg tablet RxNorm: 473972 1 Tablet(s) Oral QPM for itching/aniety 05/13/2019 05/20/2019 Inactive Singulair 10 mg tablet RxNorm: 764620 1 Tablet(s) Oral QPM 05/06/1905/12/2019 Inactive gabapentin 600 mg tablet RxNorm: 682542 1 Tablet(s) Oral QD 020 06/05/2019 Inactive Valium 5 mg tablet RxNorm: 665908 1 Tablet(s) Oral QPM for stri joao/muscle spasm 04/29/2019 06/24/2019 Inactive baclofen 10 mg tablet RxNorm: 306437 1 Tablet(s) Oral QPM for s pasm/neck pain 04/24/2019 05/23/2019 Inactive baclofen 10 mg tablet RxNorm: 896084 1 Tablet(s) Oral QPM for s pasm/neck pain 04/24/2019 04/23/2019 Inactive Novolin N NPH U-100 Insulin isophane 100 unit/mL subcu taneous susp RxNorm: 649406 23 Unit(s) Subcutaneous two times a day 04/20/2019 07/05/2019 I nactive cyclobenzaprine 5 mg tablet RxNorm: 377756 1 Tablet(s) Oral three times a day as needed 04/16/2019 04/23/2019 Inactive hydroxyzine HCl 25 mg tablet RxNorm: 187823 1 Tablet(s) Oral three times a day for itching/aniety 04/08/2019 05/12/2019 Inactive gabapentin 600 mg tablet RxNorm: 985086 1 Tablet(s) Oral two ti mes a day 04/08/2019 05/05/2019 Inactive gabapentin 600 mg tablet RxNorm: 178579 1 Tablet(s) Oral two ti mes a day 04/08/2019 04/07/2019 Inactive Novolin N NPH U-100 Insulin isophane 100 unit/mL subcu taneous susp RxNorm: 166744 10 Unit(s) Subcutaneous two times a day 03/03/2019 04/19/2019 I nactive gabapentin 300 mg capsule RxNorm: 032873 1 Capsule(s) O ral every night at bedtime for neuropathy 02/26/2019 04/07/2019 Inactive gabapentin 300 mg capsule RxNorm: 151849 1 Capsule(s) O ral every night at bedtime for neuropathy 02/20/2019 02/25/2019 Inactive buspirone 5 mg tablet RxNorm: 849603 TAKE 1 TABLET THREE TIMES MILDRED Y 02/12/2019 05/12/2019 Inactive pramipexole 1 mg tablet RxNorm: 794213 1 Tablet(s) Oral QPM FOR RESTLESS LEGS (REPLACES REQUIP) 02/12/2019 06/24/2019 Inactive Lexapro 10 mg tablet RxNorm: 581705 TAKE 1 TABLET EVERY DAY FOR MOO D 01/31/2019 No Stop Date Active Ativan 0.5 mg tablet RxNorm: 246643 TAKE 1 TABLET BY MO UT THREE TIMES DAILY NEEDED FOR ANXIETY 01/26/2019 04/28/2019 Inactive Ativan 0.5 mg tablet RxNorm: 916399 TAKE 1 TABLET BY MO UT THREE TIMES DAILY NEEDED FOR ANXIETY 01/05/2019 01/05/2019 Inactive Levaquin 500 mg tablet RxNorm: 591791 1 Tablet(s) Oral QD 12/25/2018 12/24/2018 Inactive Levaquin 500 mg tablet RxNorm: 431637 1 Tablet(s) Oral QD 12/25/2018 01/04/2019 Inactive baclofen 10 mg tablet RxNorm: 875948 1 Tablet(s) Oral three maico es a day 11/20/2018 01/19/2019 Inactive Ativan 0.5 mg tablet RxNorm: 825323 TAKE 1 TABLET BY [place] UT THREE TIMES DAILY NEEDED FOR ANXIETY 11/20/2018 01/04/2019 Inactive gabapentin 300 mg capsule RxNorm: 505014 1 Capsule(s) O ral every night at bedtime for neuropathy 11/20/2018 12/20/2018 Inactive Lexapro 10 mg tablet RxNorm: 193552 1 Tablet(s) PO QD for mood 07/201801/30/2019 Inactive Zithromax Z-Lj 250 mg tablet RxNorm: 357038 Tablet(s) PO take as directed 11/04/2018 11/19/2018 Inactive Insulin Syringe 1 mL 29 gauge x 1/2" RxNorm: 2 s yringes daily with insulin Dx: E11.65 10/08/2018 08/11/2019 Inactive gabapentin 300 mg capsule RxNorm: 398546 1 Capsule(s) PO QHS fo r neuropathy 09/18/2018 10/17/2018 Inactive cyclobenzaprine 5 mg tablet RxNorm: 707164 1 Tablet(s) PO TID a s needed 09/09/2018 09/08/2018 Inactive cyclobenzaprine 5 mg tablet RxNorm: 708742 1 Tablet(s) PO TID a s needed 09/09/2018 10/08/2018 Inactive prednisone 20 mg tablet RxNorm: 713540 1 Tablet(s) PO QD 09/08/2018 0 09/12/2018 Inactive Natalie Greenberg U-100 Insulin 100 unit/mL (3 mL) subcu taneous pen RxNorm: 571027 55 Unit(s) SQ QAM 08/28/2018 11/03/2018 Inactive hydroxyzine HCl 25 mg tablet RxNorm: 706254 1 Tablet(s) PO QHS for itching 08/20/2018 05/12/2019 Inactive Lexapro 10 mg tablet RxNorm: 080672 1 Tablet(s) PO QD for mood 08/0210/18/2018 Inactive sumatriptan 100 mg tablet RxNorm: 794259 1 Tablet(s) PO at headache onset. May repeat 1 in two hours if headache remains. Max of 2 per 24 hours 04/02/2018 05/20/2018 Inactive Diflucan 150 mg tablet RxNorm: 167391 1 Tablet(s) PO QD 03/18/2018 Inactive Diflucan 150 mg tablet RxNorm: 362975 1 Tablet(s) PO QD 03/18/2018 Inactive Flagyl 500 mg tablet RxNorm: 403271 1 Tablet(s) PO TID 03/17/2018 Inactive Levaquin 500 mg tablet RxNorm: 975367 1 Tablet(s) PO QD 03/17/2018 Inactive Levaquin 500 mg tablet RxNorm: 650842 1 Tablet(s) PO QD 03/17/2018 Inactive Flagyl 500 mg tablet RxNorm: 072387 1 Tablet(s) PO TID 03/17/2018 Inactive ketoconazole 200 mg tablet RxNorm: 061017 1 Tablet(s) PO QD 019 03/19/2018 Inactive Celebrex 200 mg capsule RxNorm: 518432 1 Capsule(s) PO BID 02/06/20 18 05/20/2018 Inactive tramadol 50 mg tablet RxNorm: 691602 1 Tablet(s) PO TID as needed 1 04/08/2017 05/20/2018 Inactive gabapentin 300 mg capsule RxNorm: 324083 1 Capsule(s) PO BID 201705/20/2018 Inactive Diflucan 150 mg tablet RxNorm: 567375 1 Tablet(s) PO QD 01/20/2018 Inactive pramipexole 1 mg tablet RxNorm: 435324 1 Tablet(s) PO Q PM FOR RESTLESS LEGS (REPLACES REQUIP) 01/08/2018 02/11/2019 Inactive cyclobenzaprine 10 mg tablet RxNorm: 523864 1 Tablet(s) PO TID as needed for muscle spasm 12/17/2017 05/20/2018 Inactive pramipexole 1 mg tablet RxNorm: 040648 TAKE 1 TABLET BY MOUTH ONCE DAILY IN THE EVENING FOR RESTLESS LEGS (REPLACES REQUIP) 12/04/2017 01/05/2018 Inac tive Amaryl 4 mg tablet RxNorm: 093863 1 Tablet(s) PO BID replaces 2mg 0 11/05/2017 12/16/2017 Inactive Singulair 10 mg tablet RxNorm: 238114 1 Tablet(s) PO QHS for al lergies/lungs 10/30/2017 12/16/2017 Inactive Diflucan 100 mg tablet RxNorm: 534247 1 Tablet(s) PO QD 10/23/2017 Inactive Ativan 0.5 mg tablet RxNorm: 953351 TAKE 1 TABLET BY MOUTH THRE E TIMES DAILY 08/30/2017 11/20/2018 Inactive buspirone 5 mg tablet RxNorm: 766648 1 Tablet(s) PO TID 07/11/2017 Inactive propranolol 60 mg tablet RxNorm: 838100 1 Tablet(s) PO BID repl aces 40mg dose 06/26/2017 12/16/2017 Inactive Amaryl 4 mg tablet RxNorm: 048844 1 Tablet(s) PO BID replaces 2mg 0 06/12/2017 11/05/2017 Inactive omeprazole 40 mg capsule,delayed release RxNorm: 254213 1 Capsule(s) PO BID TAKE ONE CAPSULE BY MOUTH TWICE DAILY 05/30/2017 11/25/2017 Inactive pramipexole 1 mg tablet RxNorm: 071206 1 Tablet(s) PO Q PM for restless legs--replaces requip 05/30/2017 11/25/2017 Inactive amitriptyline 50 mg tablet RxNorm: 297155 1 Tablet(s) PO QHS 201709/16/2017 Inactive Diflucan 100 mg tablet RxNorm: 591049 1 Tablet(s) PO BID 05/07/2017 0 05/20/2017 Inactive nystatin (bulk) 100 million unit powder RxNorm: Application TO P BID 05/07/2017 05/20/2018 Inactive cholestyramine (with sugar) 4 gram oral powder RxNorm: 160330 1 Unit Dose PO QD 05/07/2017 01/20/2018 Inactive Ativan 0.5 mg tablet RxNorm: 466445 TAKE ONE TABLET BY MOUTH TH REE TIMES DAILY 05/01/2017 09/02/2017 Inactive Trulicity 1.5 mg/0.5 mL subcutaneous pen injector RxNorm: 15 48216 1 Unit Dose SQ WEEKLY 02/22/2017 03/23/2017 Inactive doxycycline hyclate 100 mg capsule RxNorm: 5717650 1 Capsule(s) PO BID 01/23/2017 02/05/2017 Inactive Amaryl 4 mg tablet RxNorm: 183897 1 Tablet(s) PO BID replaces 2mg 1 03/25/2016 05/22/2017 Inactive magnesium oxide 400 mg capsule RxNorm: 341672 1 Capsule(s) PO QD 07/18/2017 Inactive Ativan 0.5 mg tablet RxNorm: 203731 TAKE ONE TABLET BY MOUTH TH REE TIMES DAILY 01/17/2017 05/01/2017 Inactive Amaryl 2 mg tablet RxNorm: 720172 1 Tablet(s) PO BID 12/27/201601/22 Inactive Amaryl 2 mg tablet RxNorm: 205222 1 Tablet(s) PO BID 12/26/201612/26 Inactive Ativan 0.5 mg tablet RxNorm: 107834 TAKE ONE TABLET BY MOUTH TH REE TIMES DAILY 12/05/2016 01/18/2017 Inactive pramipexole 1 mg tablet RxNorm: 569308 1 Tablet(s) PO Q PM for restless legs--replaces requip 11/26/2016 05/30/2017 Inactive Mobic 15 mg tablet RxNorm: 640725 1 Tablet(s) PO QD 10/08/20162016 Inactive cyclobenzaprine 5 mg tablet RxNorm: 248085 1/2- 1 Tablet(s) PO TID 10/08/2016 10/17/2016 Inactive Ativan 0.5 mg tablet RxNorm: 014523 1 Tablet(s) PO TID 09/20/201607/2016 Inactive amitriptyline 50 mg tablet RxNorm: 224647 1 Tablet(s) PO QHS 201605/30/2017 Inactive propranolol 60 mg tablet RxNorm: 193521 1 Tablet(s) PO BID repl aces 40mg dose 09/19/2016 06/26/2017 Inactive Ativan 0.5 mg tablet RxNorm: 413838 1 Tablet(s) PO TID 08/20/2016 Inactive omeprazole 40 mg capsule,delayed release RxNorm: 823749 1 Capsule(s) PO BID TAKE ONE CAPSULE BY MOUTH TWICE DAILY 08/20/2016 05/30/2017 Inactive amitriptyline 50 mg tablet RxNorm: 870274 1 Tablet(s) PO QHS 201609/18/2016 Inactive pramipexole 1 mg tablet RxNorm: 547468 1 Tablet(s) PO Q PM for restless legs--replaces requip 07/23/2016 11/25/2016 Inactive Amaryl 2 mg tablet RxNorm: 244030 1 Tablet(s) PO BID 07/23/201612/27 Inactive propranolol 40 mg tablet RxNorm: 950988 1 Tablet(s) PO BID 07/13/1909/18/2016 Inactive Ativan 0.5 mg tablet RxNorm: 192840 1 Tablet(s) PO QID 06/19/2016 Inactive Amaryl 2 mg tablet RxNorm: 094448 1 Tablet(s) PO BID 06/19/201607/22 Inactive Ativan 0.5 mg tablet RxNorm: 843322 1 Tablet(s) PO QID 06/19/2016 Inactive buspirone 5 mg tablet RxNorm: 165570 1 Tablet(s) PO TID 06/19/2016 Inactive Ativan 0.5 mg tablet RxNorm: 366224 1 Tablet(s) PO BID 05/24/2016 Inactive buspirone 5 mg tablet RxNorm: 750164 1 Tablet(s) PO TID 05/23/2016 Inactive Macrobid 100 mg capsule RxNorm: 379862 1 Capsule(s) PO QOD 05/03/19 17 10/07/2016 Inactive pramipexole 1 mg tablet RxNorm: 185148 Tablet(s) 1 Tabl et(s) PO QPM for restless legs--replaces requip 04/26/2016 06/24/2016 Inactive propranolol 40 mg tablet RxNorm: 542503 TAKE ONE TABLET BY MOUT H TWICE DAILY 04/26/2016 06/24/2016 Inactive Detrol LA 4 mg capsule,extended release RxNorm: 861830 1 Capsul e(s) PO QHS 04/03/2016 05/02/2016 Inactive prednisone 20 mg tablet RxNorm: 301640 1 Tablet(s) PO QD 02/29/2016 0 03/04/2016 Inactive Actos 30 mg tablet RxNorm: 305743 TAKE ONE TABLET BY MOUTH ONCE DAILY 02/27/2016 12/19/2016 Inactive clindamycin 300 mg capsule RxNorm: 955669 1 Capsule(s) PO TID 02/0102/08/2016 Inactive Flagyl 500 mg tablet RxNorm: 844670 1 Tablet(s) PO BID 02/02/201609/2015 Inactive omeprazole 40 mg capsule,delayed release RxNorm: 123177 TAKE ONE CAPSULE BY MOUTH TWICE DAILY 01/15/2016 07/12/2016 Inactive gabapentin 300 mg capsule RxNorm: 380869 1 Capsule(s) PO QAM an d 2 po q HS 01/05/2016 06/18/2016 Inactive gabapentin 300 mg capsule RxNorm: 173297 1 Capsule(s) P O BID 1 Capsule(s) PO QHS 12/05/2015 01/04/2016 Inactive cyclobenzaprine 10 mg tablet RxNorm: 487701 1 Tablet(s) PO TID for spasm as needed for muscle spasm 12/05/2015 06/18/2016 Inactive ciprofloxacin 250 mg tablet RxNorm: 208990 1 Tablet(s) PO BID 12/0412/14/2015 Inactive pramipexole 1 mg tablet RxNorm: 211294 Tablet(s) 1 Tabl et(s) PO QPM for restless legs--replaces requip 11/07/2015 11/26/2016 Inactive Januvia 100 mg tablet RxNorm: 380857 1 Tablet(s) PO QD 10/26/201504/2015 Inactive propranolol 40 mg tablet RxNorm: 532049 TAKE ONE TABLET BY MOUT H TWICE DAILY 10/25/2015 04/21/2016 Inactive gabapentin 300 mg capsule RxNorm: 349963 1 Capsule(s) PO QHS 201512/04/2015 Inactive Cipro 500 mg tablet RxNorm: 979775 1 Tablet(s) PO BID 10/05/201511/2015 Inactive pramipexole 1 mg tablet RxNorm: 181451 Tablet(s) 1 Tabl et(s) PO QPM for restless legs--replaces requip 10/04/2015 11/02/2015 Inactive propranolol 40 mg tablet RxNorm: 824754 TAKE ONE TABLET BY MOUT H TWICE DAILY 09/26/2015 10/24/2015 Inactive Amaryl 2 mg tablet RxNorm: 910959 1 Tablet(s) PO QD 09/15/20152016 Inactive gabapentin 300 mg capsule RxNorm: 165017 1 Capsule(s) PO QHS 201510/14/2015 Inactive buspirone 5 mg tablet RxNorm: 028356 1 Tablet(s) PO TID 09/15/2015 Inactive pramipexole 1 mg tablet RxNorm: 214799 Tablet(s) 1 Tabl et(s) PO QPM for restless legs--replaces requip 09/08/2015 10/03/2015 Inactive pramipexole 1 mg tablet RxNorm: 169082 1 Tablet(s) PO Q PM for restless legs--replaces requip 08/08/2015 09/08/2015 Inactive Amaryl 2 mg tablet RxNorm: 989083 1 Tablet(s) PO QD 07/07/20152015 Inactive pramipexole 1 mg tablet RxNorm: 599161 1 Tablet(s) PO Q PM for restless legs--replaces requip 07/05/2015 08/03/2015 Inactive ropinirole 2 mg tablet RxNorm: 525723 TAKE ONE TABLET BY MOUTH TWICE DAILY 05/09/2015 09/14/2015 Inactive Diflucan 100 mg tablet RxNorm: 138474 1 Tablet(s) PO QD 03/30/2015 Inactive propranolol 40 mg tablet RxNorm: 585054 1 Tablet(s) PO BID 02/24/20 15 08/21/2015 Inactive [SAVINGS FOR UNINSURED PATIE NTS -- BIN:999925, PCN: ASPROD1, Group: AME08, ID# [id number], Process claim through [employer], for questions: . THIS IS NOT INSURANCE.] Flagyl 500 mg tablet RxNorm: 887761 1 Tablet(s) PO BID 02/03/201502/2015 Inactive Cipro 500 mg tablet RxNorm: 124156 1 Tablet(s) PO BID 02/03/201502/01 Inactive Carafate 1 gram tablet RxNorm: 269724 1 Tablet(s) PO QID make i nto slurry 02/03/2015 09/14/2015 Inactive ondansetron HCl 4 mg tablet RxNorm: 018373 1 Tablet(s) PO Q4H as needed for nausea 12/29/2014 01/04/2016 Inactive Diflucan 100 mg tablet RxNorm: 090364 1 Tablet(s) PO QD 12/29/2014 Inactive Keflex 500 mg capsule RxNorm: 881544 1 Capsule(s) PO TID 12/29/2014 1 03/09/2014 Inactive omeprazole 40 mg capsule,delayed release RxNorm: 537392 1 Capsu le(s) PO BID 12/27/2014 12/21/2015 Inactive [SAVINGS FOR UNINSUR ED PATIENTS -- BIN:341239, PCN: ASPROD1, Group: AME08, ID# [id number], Process claim through [employer], for questions: . THIS IS NOT INSURANCE.] ropinirole 2 mg tablet RxNorm: 468374 1 Tablet(s) PO BID 09/29/2014 0 03/27/2015 Inactive [SAVINGS FOR UNINSURED PATIENTS -- BIN:0 94813, PCN: ASPROD1, Group: AME08, ID# [id number], Process claim through [employer], for questions: . THIS IS NOT INSURANCE.] buspirone 5 mg tablet RxNorm: 144364 1 Tablet(s) PO TID 09/17/2014 Inactive ropinirole 2 mg tablet RxNorm: 380752 1 Tablet(s) PO BID 09/02/2014 0 09/28/2014 Inactive [SAVINGS FOR UNINSURED PATIENTS -- BIN:0 76390, PCN: ASPROD1, Group: AME08, ID# [id number], Process claim through [employer], for questions: . THIS IS NOT INSURANCE.] Zyrtec 10 mg tablet RxNorm: 7326276 1 Tablet(s) PO QD 09/02/201412/02 Inactive propranolol 40 mg tablet RxNorm: 167348 1 Tablet(s) PO BID 07/21/19 15 02/23/2015 Inactive [SAVINGS FOR UNINSURED PATIE NTS -- BIN:548805, PCN: ASPROD1, Group: AME08, ID# [id number], Process claim through [employer], for questions: . THIS IS NOT INSURANCE.] ropinirole 2 mg tablet RxNorm: 244906 1 Tablet(s) PO QHS 05/14/2014 0 09/01/2014 Inactive [SAVINGS FOR UNINSURED PATIENTS -- BIN:0 53926, PCN: ASPROD1, Group: AME08, ID# [id number], Process claim through [employer], for questions: . THIS IS NOT INSURANCE.] cyclobenzaprine 10 mg tablet RxNorm: 606789 1 Tablet(s) PO QHS for spasm 04/06/2014 09/01/2014 Inactive ipratropium-albuterol 0.5 mg-3 mg(2.5 mg base)/3 mL ne bulization soln RxNorm: 7766831 1 Unit Dose INH Q4H 03/16/2014 No Stop Date Active [SAVINGS FOR UNINSURED PATIENTS -- BIN:930516, PCN: ASPROD1, Group: AME08, ID# [id number], Process claim through [employer], for questions: . THIS IS NOT INSURANCE.] prednisone 20 mg tablet RxNorm: 595010 1 Tablet(s) PO BID 03/09/2014 03/15/2014 Inactive [SAVINGS FOR UNINSURED PATIENTS -- BIN:0 06696, PCN: ASPROD1, Group: AME08, ID# [id number], Process claim through [employer], for questions: . THIS IS NOT INSURANCE.] ipratropium-albuterol 0.5 mg-3 mg(2.5 mg base)/3 mL ne bulization soln RxNorm: 7075405 1 Unit Dose INH Q4H 03/09/2014 03/15/2014 Inactive [SAVINGS FOR UNINSURED PATIENTS -- BIN:658146, PCN: ASPROD1, Group: AME08, ID# [id number], Process claim through [employer], for questions: . THIS IS NOT INSURANCE.] Levaquin 500 mg tablet RxNorm: 981595 1 Tablet(s) PO QD 03/09/2014 Inactive [SAVINGS FOR UNINSURED PATIENTS -- BIN:0 44291, PCN: ASPROD1, Group: AME08, ID# [id number], Process claim through [employer], for questions: . THIS IS NOT INSURANCE.] Carafate 1 gram tablet RxNorm: 891652 1 Tablet(s) PO AC & HS ma ke into slurry 02/09/2014 09/01/2014 Inactive [SAVINGS FOR UNINSUR ED PATIENTS -- BIN:502463, PCN: ASPROD1, Group: AME08, ID# [id number], Process claim through [employer], for questions: . THIS IS NOT INSURANCE.] Fioricet 50 mg-300 mg-40 mg capsule RxNorm: 3699714 1-2 Capsule(s) PO Q4H as needed for headache --max of 6 a day 02/09/2014 09/01/2014 Inactive [SAVINGS FOR UNINSURED PATIENTS -- BIN:445782, PCN: ASPROD1, Group: AME08, ID# [id number], Process claim through [employer], for questions: . THIS IS NOT INSURANCE.] propranolol 40 mg tablet RxNorm: 217641 1 Tablet(s) PO BID 12/08/19 14 06/04/2014 Inactive [SAVINGS FOR UNINSURED PATIE NTS -- BIN:549821, PCN: ASPROD1, Group: AME08, ID# [id number], Process claim through [employer], for questions: . THIS IS NOT INSURANCE.] buspirone 5 mg tablet RxNorm: 117072 1 Tablet(s) PO TID 12/02/2013 Inactive omeprazole 40 mg capsule,delayed release RxNorm: 372851 1 Capsu le(s) PO BID 11/25/2013 11/19/2014 Inactive [SAVINGS FOR UNINSUR ED PATIENTS -- BIN:265653, PCN: ASPROD1, Group: AME08, ID# [id number], Process claim through [employer], for questions: . THIS IS NOT INSURANCE.] ropinirole 2 mg tablet RxNorm: 520630 1 Tablet(s) PO QHS 11/10/2013 0 05/08/2014 Inactive [SAVINGS FOR UNINSURED PATIENTS -- BIN:0 29157, PCN: ASPROD1, Group: AME08, ID# [id number], Process claim through [employer], for questions: . THIS IS NOT INSURANCE.] Cipro 500 mg tablet RxNorm: 515471 1 Tablet(s) PO BID 10/21/201312/03 Inactive [SAVINGS FOR UNINSURED PATIENTS -- BIN:0 84913, PCN: ASPROD1, Group: AME08, ID# [id number], Process claim through [employer], for questions: . THIS IS NOT INSURANCE.] hydroxyzine HCl 25 mg tablet RxNorm: 811003 1 Tablet(s) PO Q4-6 H as needed 10/05/2013 01/04/2016 Inactive [SAVINGS FOR UNINSUR ED PATIENTS -- BIN:859651, PCN: ASPROD1, Group: AME08, ID# [id number], Process claim through [employer], for questions: . THIS IS NOT INSURANCE.] triamcinolone acetonide 0.1 % topical cream RxNorm: 0699028 Appl ication TOP BID 10/05/2013 09/01/2014 Inactive [SAVINGS FOR UNINSUR ED PATIENTS -- BIN:272667, PCN: ASPROD1, Group: AME08, ID# [id number], Process claim through [employer], for questions: . THIS IS NOT INSURANCE.] albuterol sulfate HFA 90 mcg/actuation aerosol inhaler RxNor m: 3463770 2 Puff(s) INH Q4H as needed for cough 10/01/2013 12/22/2013 Inactive [MAKSIM INGS FOR UNINSURED PATIENTS -- BIN:190850, PCN: ASPROD1, Group: AME08, ID# [id number], Process claim through [employer], for questions: . THIS IS NOT INSURANCE.] propranolol 40 mg tablet RxNorm: 234587 1 Tablet(s) PO BID 09/02/19 14 11/29/2013 Inactive [SAVINGS FOR UNINSURED PATIE NTS -- BIN:123616, PCN: ASPROD1, Group: AME08, ID# [id number], Process claim through [employer], for questions: . THIS IS NOT INSURANCE.] propranolol 40 mg tablet RxNorm: 107142 1 Tablet(s) PO BID 08/05/19 14 08/31/2013 Inactive [SAVINGS FOR UNINSURED PATIE NTS -- BIN:246760, PCN: ASPROD1, Group: AME08, ID# [id number], Process claim through [employer], for questions: . THIS IS NOT INSURANCE.] Toprol XL 50 mg tablet,extended release RxNorm: 714832 1 Tablet (s) PO QHS 07/23/2013 08/03/2013 Inactive Macrobid 100 mg capsule RxNorm: 225360 1 Capsule(s) PO BID 07/04/19 14 07/09/2013 Inactive Toprol XL 50 mg tablet,extended release RxNorm: 502273 1 Tablet (s) PO QHS 05/28/2013 06/26/2013 Inactive ciprofloxacin 500 mg tablet RxNorm: 555772 1 Tablet(s) PO BID 05/2706/02/2013 Inactive Bystolic 5 mg tablet RxNorm: 058830 1 Tablet(s) PO QD 05/27/201305/03 Inactive ropinirole 2 mg tablet RxNorm: 149234 1 Tablet(s) PO QHS 04/22/2013 0 11/09/2013 Inactive Cipro 250 mg tablet RxNorm: 713103 1 Tablet(s) PO BID 04/06/201311/2013 Inactive ropinirole 2 mg tablet RxNorm: 852300 1 Tablet(s) PO QHS 02/17/2013 0 04/21/2013 Inactive Amaryl 2 mg tablet RxNorm: 385918 1 Tablet(s) PO QAM 11/11/201211/10 Inactive Amaryl 2 mg tablet RxNorm: 425258 1 Tablet(s) PO QAM 11/11/201204/05 Inactive omeprazole 40 mg capsule,delayed release RxNorm: 554431 1 Capsu le(s) PO BID 08/14/2012 08/08/2013 Inactive Bystolic 5 mg tablet RxNorm: 652721 1 Tablet(s) PO QD 08/14/201205/03 Inactive propranolol 60 mg tablet RxNorm: 947874 Tablet(s) PO TAKE 1 TAB LET TWICE DAILY 08/01/2012 09/01/2012 Inactive Bystolic 5 mg tablet RxNorm: 354362 1 Tablet(s) PO QD 07/21/201207/02 Inactive Bystolic 5 mg tablet RxNorm: 041218 1 Tablet(s) PO QD 07/21/201207/03 Inactive Prilosec 40 mg capsule,delayed release RxNorm: 174459 1 Capsule (s) PO BID 06/24/2012 07/21/2012 Inactive buspirone 10 mg tablet RxNorm: 756600 1 Tablet(s) PO TID 05/08/2012 0 05/23/2016 Inactive Valium 10 mg tablet RxNorm: 718526 1 Tablet(s) PO BID 04/02/201207/03 Inactive Endocet 10 mg-325 mg tablet RxNorm: 9879646 1 Tablet(s) PO QID 03/0607/21/2012 Inactive as needed for severe pain Valium 10 mg tablet RxNorm: 182395 1 Tablet(s) PO BID 02/27/2012 No S top Date Active Endocet 10 mg-325 mg tablet RxNorm: 7788471 1 Tablet(s) PO QID 02/0203/27/2012 Inactive as needed for severe pain Endocet 10 mg-325 mg tablet RxNorm: 6342007 1 Tablet(s) PO QID 01/0302/26/2012 Inactive as needed for severe pain Valium 10 mg tablet RxNorm: 342987 1 Tablet(s) PO BID 01/29/2012 No S top Date Active Protonix 40 mg tablet,delayed release RxNorm: 960412 1 Tablet(s ) PO QD 01/28/2012 07/21/2012 Inactive metformin ER 500 mg tablet,extended release 24 hr RxNorm: 86 0977 1 Tablet(s) PO QD 12/26/2011 07/20/2012 Inactive Trazadone 150 mg Tablet RxNorm: 1 Tablet(s) PO QHS prn sleep 1 04/23/2012 Inactive Endocet 10 mg-325 mg tablet RxNorm: 2560754 1 Tablet(s) PO QID 12/0301/24/2012 Inactive as needed for severe pain Nexium 40 mg capsule,delayed release RxNorm: 694757 1 Capsule(s ) PO QD 12/26/2011 01/27/2012 Inactive Symbicort 160 mcg-4.5 mcg/actuation HFA Aerosol Inhaler RxNo rm: 9251536 2 Puff(s) INH BID 12/04/2011 07/21/2012 Inactive Endocet 10 mg-325 mg tablet RxNorm: 1743300 1 Tablet(s) PO QID 11/0312/25/2011 Inactive as needed for severe pain metformin ER 500 mg tablet,extended release 24 hr RxNorm: 86 0977 1 Tablet(s) PO QD 11/20/2011 12/19/2011 Inactive metformin ER 500 mg tablet,extended release 24 hr RxNorm: 86 0977 1 Tablet(s) PO QD 11/20/2011 11/19/2011 Inactive amitriptyline 100 mg tablet RxNorm: 255812 Tablet(s) PO QHS 1 a nd 1/2 tabs QHS 11/12/2011 11/13/2011 Inactive Valium 10 mg tablet RxNorm: 812324 1 Tablet(s) PO BID 11/09/2011 No S top Date Active Endocet 10 mg-325 mg tablet RxNorm: 5065012 1 Tablet(s) PO QID 10/0211/14/2011 Inactive as needed for severe pain Aricept 10 mg Tab RxNorm: 796912 1 Tablet(s) PO QD 10/05/2011 013 Inactive Valium 10 mg tablet RxNorm: 899550 1 Tablet(s) PO BID 10/05/2011 No S top Date Active Endocet 10 mg-325 mg Tab RxNorm: 6225137 1 Tablet(s) PO QID 012 10/09/2011 Inactive as needed for severe pain Aricept 10 mg Tab RxNorm: 176828 1 Tablet(s) PO QD 08/14/2011 012 Inactive Endocet 10 mg-325 mg Tab RxNorm: 5482788 1 Tablet(s) PO QID 012 08/31/2011 Inactive as needed for severe pain Valium 10 mg Tab RxNorm: 022855 1 Tablet(s) PO BID 08/02/2011 No Stop Date Active propranolol 60 mg tablet RxNorm: 190955 1 Tablet(s) PO BID 07/26/19 12 09/11/2011 Inactive amitriptyline 100 mg tablet RxNorm: 743273 Tablet(s) PO QHS 1 a nd /2 tabs QHS 06/20/2011 09/11/2011 Inactive buspirone 10 mg tablet RxNorm: 804954 1 Tablet(s) PO BID 06/18/2011 0 09/15/2011 Inactive propranolol 60 mg Tab RxNorm: 319785 1 Tablet(s) PO BID 06/18/2011 Inactive gabapentin 800 mg Tab RxNorm: 498768 1 Tablet(s) PO BID 06/18/2011 Inactive ropinirole 2 mg tablet RxNorm: 943581 1 Tablet(s) PO QHS 05/29/2011 0 08/26/2011 Inactive trimethoprim 100 mg Tab RxNorm: 645129 1 Tablet(s) PO QHS 05/29/2011 07/21/2012 Inactive Endocet 10 mg-325 mg Tab RxNorm: 3263373 1 Tablet(s) PO QID 012 2011 Inactive as needed for severe pain Valium 10 mg Tab RxNorm: 593800 1 Tablet(s) PO QHS N eed to take med as prescribed. this is a 40 day RX. No early fills. 05/17/2011 05/20/2018 Inactive propranolol 60 mg Tab RxNorm: 974934 1 Tablet(s) PO BID 04/16/2011 Inactive Neurontin 800 mg Tab RxNorm: 179545 1 Tablet(s) PO QHS 04/05/201103/2011 Inactive Endocet 10 mg-325 mg Tab RxNorm: 1540011 1 Tablet(s) PO QID 012 05/02/2011 Inactive as needed for severe pain oxycodone-acetaminophen 10 mg-325 mg tablet RxNorm: 7212714 1 Ta blet(s) PO Q4H 03/28/2011 05/19/2012 Inactive Valium 10 mg Tab RxNorm: 850102 1 Tablet(s) PO QHS 03/28/2011 012 Inactive buspirone 10 mg Tab RxNorm: 958805 1 Tablet(s) PO BID 03/27/201106/02 Inactive propranolol 60 mg Tab RxNorm: 005100 1 Tablet(s) PO BID 03/19/2011 Inactive Klor-Con M20 20 mEq Tab RxNorm: 7896788 1 Tablet(s) PO QD 03/19/2011 07/21/2012 Inactive Aricept 10 mg Tab RxNorm: 902746 1 Tablet(s) PO QD 02/27/2011 012 Inactive propranolol 60 mg Tab RxNorm: 178357 1 Tablet(s) PO BID 02/19/2011 Inactive omeprazole 40 mg capsule,delayed release RxNorm: 981214 1 Capsu le(s) PO BID 01/24/2011 05/23/2011 Inactive clindamycin 300 mg capsule RxNorm: 211966 1 Capsule(s) PO TID 01/2402/02/2011 Inactive propranolol 60 mg Tab RxNorm: 725183 1 Tablet(s) PO BID 01/22/2011 No Stop Date Active nystatin 100,000 unit/g Topical Cream RxNorm: 194314 Applicatio n TOP BID 01/15/2011 01/14/2011 Inactive to rash for 2-4 week s Diflucan 200 mg Tab RxNorm: 946523 1 Tablet(s) PO QD 01/15/201101/28 Inactive buspirone 10 mg Tab RxNorm: 135811 1 Tablet(s) PO BID 01/08/201103/05 Inactive Valium 10 mg Tab RxNorm: 923242 1 Tablet(s) PO QHS 01/05/2011 012 Inactive Diflucan 200 mg Tab RxNorm: 798329 1 Tablet(s) PO QD 01/01/201101/14 Inactive Diflucan 200 mg Tab RxNorm: 211120 1 Tablet(s) PO QD 12/18/201012/31 Inactive Valium 10 mg Tab RxNorm: 120063 1 Tablet(s) PO QHS 12/12/2010 011 Inactive Diflucan 200 mg Tab RxNorm: 286610 1 Tablet(s) PO QD 12/07/201012/18 Inactive Aricept 10 mg Tab RxNorm: 217456 1 Tablet(s) PO QD 11/20/2010 011 Inactive ropinirole 1 mg Tab RxNorm: 047469 1 Tablet(s) PO QHS 11/16/201005/03 Inactive enalapril maleate 5 mg Tab RxNorm: 459260 1 Tablet(s) PO QD 011 05/20/2018 Inactive buspirone 10 mg Tab RxNorm: 909094 1 Tablet(s) PO BID 11/16/201012/02 Inactive Valium 10 mg Tab RxNorm: 451515 1 Tablet(s) PO QHS 11/07/2010 011 Inactive Pyridium 100 mg Tab RxNorm: 4892392 1 Tablet(s) PO TID 11/02/201004/2010 Inactive Macrobid 100 mg Cap RxNorm: 8197202 1 Capsule(s) PO BID 11/02/2010 Inactive buspirone 10 mg Tab RxNorm: 754827 1 Tablet(s) PO QHS 10/18/201005/02 Inactive propranolol 60 mg Tab RxNorm: 420747 1 Tablet(s) PO BID 09/18/2010 Inactive Valium 10 mg Tab RxNorm: 302957 1 Tablet(s) PO QHS 09/05/2010 011 Inactive Aricept 10 mg Tab RxNorm: 543145 1 Tablet(s) PO QD 08/14/2010 011 Inactive Valium 10 mg Tab RxNorm: 039333 1 Tablet(s) PO QHS 06/26/2010 011 Inactive ropinirole 1 mg Tab RxNorm: 995863 1 Tablet(s) PO QHS 06/19/201010/02 Inactive omeprazole 40 mg Cap, delayed release RxNorm: 025693 1 Capsule( s) PO QD 06/07/2010 10/04/2010 Inactive Endocet 10 mg-325 mg Tab RxNorm: 4382729 1 Tablet(s) PO QID as needed for severe pain 06/07/2010 03/07/2011 Inactive Endocet 10 mg-325 mg Tab RxNorm: 3348076 1 Tablet(s) PO QID as needed for severe pain 05/04/2010 06/02/2010 Inactive Valium 10 mg Tab RxNorm: 818704 1 Tablet(s) PO QHS 05/01/2010 011 Inactive propranolol 60 mg Tab RxNorm: 188490 1 Tablet(s) PO BID 04/03/2010 Inactive Valium 10 mg Tab RxNorm: 307829 1 Tablet(s) PO QHS 03/28/2010 011 Inactive omeprazole 40 mg Cap, Delayed Release RxNorm: 560603 1 Capsule( s) PO QD 03/28/2010 06/06/2010 Inactive Endocet 10 mg-325 mg Tab RxNorm: 2420872 1 Tablet(s) PO QID prn ari n 03/27/2010 05/20/2018 Inactive Valium 10 mg Tab RxNorm: 689383 1 Tablet(s) PO QHS 02/20/2010 011 Inactive Diflucan 100 mg Tab RxNorm: 837208 1 Tablet(s) PO BID 01/23/201003/2009 Inactive Diflucan 100 mg Tab RxNorm: 917884 1 Tablet(s) PO BID 01/05/201001/02 Inactive Aricept 10 mg Tab RxNorm: 354231 1 Tablet(s) PO QD 12/01/2009 011 Inactive OxyContin 20 mg 12 hr Tab RxNorm: 7680466 1 Tablet(s) PO BID 200904/05/2010 Inactive oxycodone-acetaminophen 10 mg-325 mg Tab RxNorm: 1078098 1 Table t(s) PO Q4H 11/22/2009 11/26/2009 Inactive Phenergan 25 mg Tab RxNorm: 747160 1 Tablet(s) PO PRN MIGRAINE 11/0303/07/2011 Inactive Demerol 100 mg Tab RxNorm: 038238 1 Tablet(s) PO PRN MIGRAINE 11/2203/07/2011 Inactive Oxycodone-Acetaminophen 10 mg-325 mg Tab RxNorm: 1090490 1 Table t(s) PO Q4H 10/11/2009 10/15/2009 Inactive Percocet 10 mg-325 mg Tab RxNorm: 4544729 1 Tablet(s) PO Q4H 200910/24/2009 Inactive propranolol 60 mg Tab RxNorm: 076550 1 Tablet(s) PO BID 08/29/2009 Inactive Valium 10 mg Tab RxNorm: 710993 1 Tablet(s) PO QHS 08/16/2009 010 Inactive Keflex 500 mg Cap RxNorm: 491691 1 Capsule(s) PO BID 07/25/200907/31 Inactive Hydroxyzine 25 mg Tab RxNorm: 073213 1 Tablet(s) PO TID 07/25/2009 Inactive Prednisone 20 mg Tab RxNorm: 134385 1 Tablet(s) PO BID 07/25/2009 Inactive Demerol 100 mg Tab RxNorm: 224064 1 Tablet(s) PO PRN MIGRAINE 07/25 No Stop Date Active Ropinirole 1 mg Tab RxNorm: 617931 1 Tablet(s) PO HS 07/20/200902/14 Inactive Valium 10 mg Tab RxNorm: 672568 1 Tablet(s) PO QHS 07/18/2009 010 Inactive Endocet 10 mg-325 mg Tab RxNorm: 6439025 1 Tablet(s) PO TID 010 07/07/2009 Inactive Demerol 100 mg Tab RxNorm: 699458 1 Tablet(s) PO PRN MIGRAINE 06/08 No Stop Date Active Ropinirole 1 mg Tab RxNorm: 938474 1 Tablet(s) PO HS 05/16/200907/14 Inactive ipratropium-albuterol 0.5 mg-3 mg(2.5 mg base)/3 mL ne bulization soln RxNorm: 1988496 1 Unit Dose INH Q4H as needed No Start Date Active MagOx 400 mg (241.3 mg magnesium) tablet RxNorm: 364926 1 Table t(s) PO BID No Start Date Active Vitamin B12 1000mcg Tablet RxNorm: 1 Tablet(s) PO QD No Start Date Active Vitamin D3 5,000 unit tablet RxNorm: 726439 1 Tablet(s) PO QD No Star t Date Active Tylenol Arthritis Pain 650 mg tablet,extended release RxNorm : 2712447 1 Tablet(s) PO Q4H No Start Date Active Lotrimin AF 2 % topical powder RxNorm: 287525 1 Application TOP BID No Start Date Active enalapril maleate 5 mg Tab RxNorm: 295035 1 Tablet(s) PO QD No Star t Date 07/20/2012 Inactive Demerol 100 mg Tab RxNorm: 901118 Tablet(s) PO PRN MIGRAINE No Star t Date 06/02/2009 Inactive metformin 500 mg tablet RxNorm: 986768 1 Tablet(s) PO QD No Start D ate 04/05/2013 Inactive Breo Ellipta 100 mcg-25 mcg/dose powder for inhalation RxNor m: 3620061 1 Puff(s) INH BID No Start Date 01/04/2016 Inactive Mag-Oxide 400 mg Tab RxNorm: 043008 1 Tablet(s) PO QD No Start Date 0 07/21/2012 Inactive Cipro 500 mg Tab RxNorm: 587811 1 Tablet(s) PO QD No Start Date 04/05 Inactive Ativan 0.5 mg tablet RxNorm: 913160 1 Tablet(s) PO TID as needed No Start Date 05/06/2019 Inactive melatonin 3 mg tablet RxNorm: 078393 2 Tablet(s) PO QHS No Start Da te 08/19/2018 Inactive buspirone 10 mg Tab RxNorm: 980223 1 Tablet(s) PO QD No Start Date Inactive sucralfate 100 mg/mL Oral Susp RxNorm: 574819 2 Teaspoon(s) PO QID No Start Date 07/21/2012 Inactive hydrocodone 5 mg-acetaminophen 325 mg tablet RxNorm: 470203 1 Tablet(s) PO Q4H as needed No Start Date 08/19/2018 Inactive Amaryl 2 mg tablet RxNorm: 090175 1 Tablet(s) PO BID No Start Date Inactive OxyContin 20 mg 12 hr Tab RxNorm: 4968558 1 Tablet(s) PO BID No Sta rt Date 11/27/2009 Inactive propranolol 40 mg tablet RxNorm: 448290 1 Tablet(s) PO QID No Start Date 01/19/2018 Inactive Trazadone 150 mg Tablet RxNorm: 1-2 Tablet(s) PO QHS prn sleep No Start Date 08/09/2010 Inactive propranolol 60 mg Tab RxNorm: 024114 1/2 Tablet(s) PO BID No Start Date 01/21/2011 Inactive insulin NPH and regular human subcutaneous RxNorm: 3813429 subcu taneous No Start Date 11/20/2018 Inactive Ativan 0.5 mg tablet RxNorm: 106566 1 Tablet(s) PO QID No Start Date 06/18/2016 Inactive Vasotec 5 mg Tab RxNorm: 829147 1 Tablet(s) PO BID No Start Date 06/2011 Inactive Toprol XL 50 mg tablet,extended release RxNorm: 628457 1 Tablet (s) PO BID No Start Date 04/05/2013 Inactive Ativan 0.5 mg tablet RxNorm: 679574 1 Tablet(s) PO TID No Start Date 05/25/2016 Inactive Klor-Con M20 20 mEq Tab RxNorm: 3292136 1 Tablet(s) PO QD No Start Date 03/19/2011 Inactive sumatriptan 100 mg tablet RxNorm: 809795 1 Tablet(s) PO at headache onset--repeat in 2hrs if remains No Start Date 07/21/2012 Inactive propranolol 60 mg Tab RxNorm: 391083 1 Tablet(s) PO BID No Start Da te 08/28/2009 Inactive Cholestyramine Light 4 gram Oral Powder RxNorm: 6103492 1 Unit Dose PO QD in water No Start Date 07/21/2012 Inactive nystatin 100,000 unit/g Topical Powder RxNorm: 021458 Applicati on TOP BID No Start Date 07/21/2012 Inactive vitamin G88-xptku acid sublingual RxNorm: sublingual No Start Date 07/05/2013 Inactive cyclobenzaprine 5 mg tablet RxNorm: 087553 1/2-1 Tablet (s) PO TID as needed for muscle spasm No Start Date 07/18/2017 Inactive tramadol 50 mg tablet RxNorm: 973955 2 Tablet(s) PO TID as need ed for pain No Start Date 09/01/2014 Inactive aspirin 81 mg Tab RxNorm: 210862 1 Tablet(s) PO QOD No Start Date 04/2013 Inactive Vitamin B12 1000mcg Tablet RxNorm: 1 Tablet(s) PO QD No Start Date 07/18/2017 Inactive cholestyramine (with sugar) 4 gram oral powder RxNorm: 76848 3 1 Unit(s) PO QD as needed No Start Date 05/20/2018 Inactive ProAir HFA 90 mcg/Actuation Aerosol Inhaler RxNorm: 328674 2 Puff(s) INH Q4H prn shortness of breath No Start Date 07/21/2012 Inactive pravastatin 10 mg Tab RxNorm: 071989 1 Tablet(s) PO QD No Start Date 07/21/2012 Inactive gabapentin 800 mg Tab RxNorm: 846816 1 Tablet(s) PO BID No Start Da te 06/03/2011 Inactive Endocet 10 mg-325 mg Tab RxNorm: 3231662 1 Tablet(s) PO TID No Star t Date 06/02/2009 Inactive Naproxen 500 mg Tab RxNorm: 596269 1 Tablet(s) PO BID No Start Date 0 04/05/2010 Inactive Valium 10 mg Tab RxNorm: 787821 1 Tablet(s) PO BID No Start Date 07/04 Inactive enalapril maleate 5 mg Tab RxNorm: 176200 1 Tablet(s) PO QD No Star t Date 11/15/2010 Inactive doxepin 10 mg capsule RxNorm: 3957830 2 Capsule(s) PO QHS No Start Date 09/17/2018 Inactive MS Contin 15 mg Tab RxNorm: 241606 1 Tablet(s) PO BID No Start Date 0 09/18/2010 Inactive buspirone 5 mg tablet RxNorm: 991892 1 Tablet(s) PO TID No Start Da te 12/01/2013 Inactive [place] 3 Fish Oil Cap RxNorm: 1 Capsule(s) PO QD No Start Date 07/03 Inactive enalapril maleate 5 mg Tab RxNorm: 623360 1/2 Tablet(s) PO QD No St art Date 03/07/2011 Inactive Lyrica 75 mg capsule RxNorm: 662309 1 Capsule(s) PO QHS No Start Da te 02/08/2014 Inactive Lopressor 100 mg tablet RxNorm: 061971 1 Tablet(s) PO BID No Start Date 06/08/2018 Inactive Lantus Solostar U-100 Insulin 100 unit/mL (3 mL) subcu taneous pen RxNorm: 303096 45 Unit(s) SQ QAM No Start Date 05/20/2018 Inactive aspirin 81 mg tablet RxNorm: 565407 1 Tablet(s) PO QD No Start Date 0 09/14/2015 Inactive diltiazem CD 240 mg capsule,extended release 24 hr RxNorm: 8 63739 1 Capsule(s) PO QD No Start Date 05/25/2019 Inactive insulin NPH isophane U-100 human subcutaneous RxNorm: 477890 beckwith bcutaneous No Start Date 04/20/2019 Inactive sumatriptan 100 mg tablet RxNorm: 368640 1 Tablet(s) PO at headache onset. May repeat 1 in two hours if headache remains. Max of 2 per 24 hours No Start Date 04/01/2018 Inactive gabapentin 300 mg capsule RxNorm: 813454 1 Capsule(s) PO QHS No Sta rt Date 02/04/2018 Inactive Topamax 25 mg Tab RxNorm: 744425 Oral No Start Date 03/07/2011 In active Senokot-S 8.6 mg-50 mg Tab RxNorm: 3032264 1 Tablet(s) PO QD No Sta rt Date 03/07/2011 Inactive metformin ER 500 mg 24 hr tablet,extended release RxNorm: 18 64242 1 Tablet(s) PO QD No Start Date 05/20/2018 Inactive Symbicort 80 mcg-4.5 mcg/actuation HFA Aerosol Inhaler RxNor m: 8264173 2 Puff(s) INH BID No Start Date 04/05/2013 Inactive metoprolol tartrate 25 mg tablet RxNorm: 600261 1 Tablet(s) PO BID No Start Date 05/20/2019 Inactive propranolol 60 mg Tab RxNorm: 121665 1/2 Tablet(s) PO BID No Start Date 07/21/2012 Inactive metformin ER 500 mg 24 hr tablet,extended release RxNorm: 18 24333 2 Tablet(s) PO QD No Start Date 12/16/2017 Inactive Insulin Syringe 1 mL 29 gauge x 1/2" RxNorm: 2 s yringes daily with insulin Dx: E11.65 No Start Date 10/07/2018 Inactive Amitriptyline 75 mg Tab RxNorm: 670971 1 Tablet(s) PO QHS No Start Date 10/23/2009 Inactive donepezil 10 mg Tab RxNorm: 951668 1 Tablet(s) PO QD No Start Date Inactive Lantus Solostar U-100 Insulin 100 unit/mL (3 mL) subcu taneous pen RxNorm: 292629 36 Unit(s) SQ QAM No Start Date 12/24/2017 Inactive Miacalcin 200 unit/Actuation Nasal [place] Aerosol RxNorm: 261 204 1 [place] NASAL QD Alternate nostrils each day No Start Date 04/05/2010 Inactive Amitriptyline 150 mg Tab RxNorm: 881907 1 Tablet(s) PO QHS No Start Date 01/04/2010 Inactive Bystolic 5 mg tablet RxNorm: 517434 1 Tablet(s) PO QD No Start Date 0 08/13/2012 Inactive Aricept 10 mg Tab RxNorm: 093502 1 Tablet(s) PO QD No Start Date 11/03 Inactive Lantus Solostar U-100 Insulin 100 unit/mL (3 mL) subcu taneous pen RxNorm: 961766 50 Unit(s) SQ QAM No Start Date 08/27/2018 Inactive albuterol sulfate 2.5 mg/3 mL (0.083 %) Neb Solution RxNorm: 325444 1 Unit Dose INH QID as needed No Start Date 08/23/2015 Inactive Symbicort 160 mcg-4.5 mcg/actuation HFA Aerosol Inhaler RxNo rm: 9655380 2 Puff(s) INH BID No Start Date 12/03/2011 Inactive Savella 50 mg Tab RxNorm: 395511 1 Tablet(s) PO BID No Start Date 04/2010 Inactive amitriptyline 100 mg Tab RxNorm: 153289 1 1/2 Tablet(s) PO QHS No S tart Date 06/19/2011 Inactive nystatin 100,000 unit/g Topical Cream RxNorm: 812118 Ap plication TOP BID to rash for 2-4 weeks No Start Date 01/14/2011 Inactive Trelegy Ellipta 100 mcg-62.5 mcg-25 mcg powder for inhalatio n RxNorm: 7829009 1 Puff(s) INH QD No Start Date 12/16/2017 Inactive Lyrica 150 mg capsule RxNorm: 409118 1 Capsule(s) PO QHS No Start D ate 12/04/2015 Inactive sennosides 8.6 mg tablet RxNorm: 476303 1 Tablet(s) PO BID No Start Date 09/07/2018 Inactive metformin ER 500 mg tablet,extended release 24 hr RxNorm: 86 0975 1 Tablet(s) PO QD No Start Date 10/22/2017 Inactive Fish Oil 1,000 mg Cap RxNorm: 1 Capsule(s) PO QD No Start Date 06/2011 Inactive Zyrtec 10 mg Tab RxNorm: 8099180 1 Tablet(s) PO QD No Start Date 07/03 Inactive albuterol sulfate HFA 90 mcg/actuation aerosol inhaler RxNor m: 9907739 2 Puff(s) INH Q4H as needed for cough No Start Date 09/30/2013 Inactive trazodone 150 mg tablet RxNorm: 325059 1 Tablet(s) PO QHS No Start Date 07/21/2012 Inactive Spiriva with HandiHaler 18 mcg & inhalation capsules RxNorm: 135438 1 Capsule(s) INH QD No Start Date 04/05/2013 Inactive Coreg 3.125 mg Tab RxNorm: 825464 1 Tablet(s) PO BID No Start Date Inactive Phenergan 25 mg Tab RxNorm: 925182 Tablet(s) PO PRN MIGRAINE No Sta rt Date 11/21/2009 Inactive Vitamin D 50,000 unit Cap RxNorm: 0645769 1 Capsule(s) PO QW No Sta rt Date 03/07/2011 Inactive Januvia 100 mg tablet RxNorm: 886872 1 Tablet(s) PO QD No Start Date 10/25/2015 Inactive Eliquis 5 mg tablet RxNorm: 5734721 1 Tablet(s) PO BID No Start Date 08/19/2018 Inactive Advair Diskus 500 mcg-50 mcg/Dose for Inhalation RxNorm: 397089 1 INH BID No Start Date 07/21/2012 Inactive Vitamin D3 5,000 unit tablet RxNorm: 231372 1 Tablet(s) PO QD No St art Date 07/18/2017 Inactive Amaryl 2 mg tablet RxNorm: 625196 1 Tablet(s) PO QD No Start Date 06/2015 Inactive Actos 30 mg tablet RxNorm: 366677 1 Tablet(s) PO QD No Start Date Inactive promethazine 25 mg tablet RxNorm: 750207 1 Tablet(s) PO Q4H prn N/V No Start Date 07/21/2012 Inactive ProAir HFA 90 mcg/actuation Aerosol Inhaler RxNorm: 295582 2 Puff(s) INH Q4H prn dyspnea No Start Date 07/21/2012 Inactive Dexilant 60 mg Capsule RxNorm: 954296 1 Capsule(s) PO QD No Start D ate 01/27/2012 Inactive Lantus Solostar U-100 Insulin 100 unit/mL (3 mL) subcu taneous pen RxNorm: 755962 38 Unit(s) SQ QAM No Start Date 05/20/2018 Inactive Valium 10 mg Tab RxNorm: 917770 1 Tablet(s) PO QHS AND PRN No Start Date 10/24/2009 Inactive ZOFRAN ODT 8 mg disintegrating tablet RxNorm: 447573 1 Tablet(s ) PO Q6H No Start [...] Date S ervice Location MICROALBUMIN URINE RANDOM 95658 MICRL MG/L 14.9 MG/L Unknown MICROALBUMIN URINE RANDOM 43809 XM.ALB/CRE 6.1 MG/GCR Unknown MICROALBUMIN URINE RANDOM 95912 CREAT MG/D 243 MG/DL Unknown MICROALBUMIN URINE RANDOM 11426 CRE/100 2.43 G/L 03/05 Unknown PROTEIN/CREAT URINE WITH RATIO 07190|27531 PROT R U 14 MG/D L 04/01/2014 Unknown PROTEIN/CREAT URINE WITH RATIO 18223|79271 CREAT R U 254 MG/ DL 04/01/2014 Unknown PROTEIN/CREAT URINE WITH RATIO 41491|98439 XRATIO P/C 55 MG/ G 04/01/2014 Unknown URINALYSIS 96441 PROTEIN UR NEG 04/28/2010 Unknown URINALYSIS 37479 HEMGLBN UR NEG 04/28/2010 Unknown URINALYSIS 30317 GLUCOSE UR NEG 04/28/2010 Unknown URINALYSIS 10904 KETONES UR NEG 04/28/2010 Unknown URINALYSIS 45881 PH U 5.5 04/28/2010 Unknown URINALYSIS 65705 SP GR U 1.025 04/28/2010 Unknown URINALYSIS 95304 BILRUBN UR NEG 04/28/2010 Unknown URINALYSIS 38662 LEUKO UR 2+ 04/28/2010 Unknown URINALYSIS 66903 NITRITE UR NEG 04/28/2010 Unknown MICR CUL? [id number] WBC/HPF 6-10 04/28/2010 Unknown MICR CUL? [id number] RBC/HPF 0-5 04/28/2010 Unknown MICR CUL? [id number] HYAL CAST 16-25 04/28/2010 Unknown MICR CUL? [id number] SP TO YOLIE? NO 04/28/2010 Unknown MICR CUL? [id number] APPEAR UR NORMAL 04/28/2010 Unknown MICR CUL? [id number] SQ EPI/LPF FEW 04/28/2010 Unknown Procedures Procedure Codes Date URINALYSIS NONAUTO W/O SCOPE CPT-4: 28490 04/16/2019 URINE CULTURE/ COLONY COUNT CPT-4: 61913 04/16/2019 CEFTRIAXONE SODIUM INJECTION CPT-4: J0696 04/16/2019 THER/PROPH/DIAG INJ SC/IM CPT-4: 96426 04/16/2019 DRAIN/INJECT JOINT/BURSA CPT-4: 25944 01/22/2019 TRIAMCINOLONE ACET INJ NOS CPT-4: J3301 01/22/2019 DEXAMETHASONE SODIUM PHOS CPT-4: J1100 01/22/2019 URINE CULTURE/ COLONY COUNT CPT-4: 30357 01/07/2019 URINALYSIS NONAUTO W/O SCOPE CPT-4: 94142 01/07/2019 CEFTRIAXONE SODIUM INJECTION CPT-4: J0696 01/07/2019 THER/PROPH/DIAG INJ SC/IM CPT-4: 09884 01/07/2019 FLU VACC PRSV FREE INC ANTIG 65 AND OLDER CPT-4: 77767 12/24/2018 FLU VACC PRSV FREE INC ANTIG 65 AND OLDER CPT-4: 65028 12/24/2018 ADMIN INFLUENZA VIRUS VAC CPT-4: G0008 12/24/2018 THER/PROPH/DIAG INJ SC/IM CPT-4: 86596 11/04/2018 KETOROLAC TROMETHAMINE INJ CPT-4: J1885 11/04/2018 PROMETHAZINE HCL INJECTION CPT-4: J2550 11/04/2018 PPPS, subseq visit CPT-4: G0439 09/18/2018 THER/PROPH/DIAG INJ SC/IM CPT-4: 72848 04/01/2018 KETOROLAC TROMETHAMINE INJ CPT-4: J1885 04/01/2018 PROMETHAZINE HCL INJECTION CPT-4: J2550 04/01/2018 URINE CULTURE/ COLONY COUNT CPT-4: 51797 03/17/2018 URINALYSIS NONAUTO W/O SCOPE CPT-4: 22590 03/17/2018 FLU VACC PRSV FREE INC ANTIG 65 AND OLDER CPT-4: 05674 12/17/2017 PNEUMOCOCCAL VACC 23 RANDALL IM CPT-4: 83136 12/17/2017 ADMIN INFLUENZA VIRUS VAC CPT-4: G0008 12/17/2017 ADMIN PNEUMOCOCCAL VACCINE CPT-4: G0009 12/17/2017 PPPS, subseq visit CPT-4: G0439 09/17/2017 THER/PROPH/DIAG INJ SC/IM CPT-4: 77347 08/26/2017 KETOROLAC TROMETHAMINE INJ CPT-4: J1885 08/26/2017 PROMETHAZINE HCL INJECTION CPT-4: J2550 08/26/2017 URINALYSIS NONAUTO W/O SCOPE CPT-4: 85333 07/19/2017 URINE CULTURE/ COLONY COUNT CPT-4: 55125 07/19/2017 CEFTRIAXONE SODIUM INJECTION CPT-4: J0696 07/19/2017 THER/PROPH/DIAG INJ SC/IM CPT-4: 10305 07/19/2017 THER/PROPH/DIAG INJ SC/IM CPT-4: 53592 07/19/2017 TRIAMCINOLONE ACET INJ NOS CPT-4: J3301 07/19/2017 PRESCRIP TRANSMIT VIA ERX SY CPT-4: G8553 05/07/2017 PRESCRIP TRANSMIT VIA ERX SY CPT-4: G8553 02/22/2017 PRESCRIP TRANSMIT VIA ERX SY CPT-4: G8553 01/23/2017 FLU VACC PRSV FREE INC ANTIG 65 AND OLDER CPT-4: 88396 12/20/2016 PNEUMOCOCCAL VACC 13 RANDALL IM CPT-4: 39370 12/20/2016 ADMIN INFLUENZA VIRUS VAC CPT-4: G0008 12/20/2016 ADMIN PNEUMOCOCCAL VACCINE CPT-4: G0009 12/20/2016 URINALYSIS NONAUTO W/O SCOPE CPT-4: 01735 10/08/2016 URINE CULTURE/ COLONY COUNT CPT-4: 40016 10/08/2016 PRESCRIP TRANSMIT VIA ERX SY CPT-4: G8553 10/08/2016 PRESCRIP TRANSMIT VIA ERX SY CPT-4: G8553 09/19/2016 PRESCRIP TRANSMIT VIA ERX SY CPT-4: G8553 08/20/2016 PRESCRIP TRANSMIT VIA ERX SY CPT-4: G8553 02/29/2016 KETOROLAC TROMETHAMINE INJ CPT-4: J1885 02/02/2016 THER/PROPH/DIAG INJ SC/IM CPT-4: 56240 02/02/2016 PROMETHAZINE HCL INJECTION CPT-4: J2550 02/02/2016 PRESCRIP TRANSMIT VIA ERX SY CPT-4: G8553 02/02/2016 FLU VACC PRSV FREE INC ANTIG 65 AND OLDER CPT-4: 91299 01/05/2016 PPPS, subseq visit CPT-4: G0439 01/05/2016 ADMIN INFLUENZA VIRUS VAC CPT-4: G0008 01/05/2016 URINE CULTURE/ COLONY COUNT CPT-4: 21558 12/05/2015 URINALYSIS NONAUTO W/O SCOPE CPT-4: 58796 12/05/2015 PRESCRIP TRANSMIT VIA ERX SY CPT-4: G8553 12/05/2015 PRESCRIP TRANSMIT VIA ERX SY CPT-4: G8553 10/26/2015 URINALYSIS NONAUTO W/O SCOPE CPT-4: 10578 10/05/2015 URINE CULTURE/ COLONY COUNT CPT-4: 33363 10/05/2015 PRESCRIP TRANSMIT VIA ERX SY CPT-4: G8553 10/05/2015 SERVICE REQUIRED FOR PMD CPT-4: G0372 09/15/2015 PRESCRIP TRANSMIT VIA ERX SY CPT-4: G8553 09/15/2015 SPECIAL REPORTS OR FORMS CPT-4: 79253 08/25/2015 PRESCRIP TRANSMIT VIA ERX SY CPT-4: G8553 07/05/2015 URINALYSIS NONAUTO W/O SCOPE CPT-4: 30192 03/30/2015 ASSAY, GLUCOSE, BLOOD QUANT CPT-4: 14034 03/30/2015 URINE CULTURE/ COLONY COUNT CPT-4: 37261 03/30/2015 PRESCRIP TRANSMIT VIA ERX SY CPT-4: G8553 03/30/2015 PRESCRIP TRANSMIT VIA ERX SY CPT-4: G8553 02/03/2015 FLU VACC PRSV FREE INC ANTIG 65 AND OLDER CPT-4: 24115 12/29/2014 ADMIN INFLUENZA VIRUS VAC CPT-4: G0008 12/29/2014 PRESCRIP TRANSMIT VIA ERX SY CPT-4: G8553 12/29/2014 PRESCRIP TRANSMIT VIA ERX SY CPT-4: G8553 09/02/2014 PROTEIN/CREAT URINE WITH RATIO CPT-4: 95830|93449 5 MICROALBUMIN QUANTITATIVE CPT-4: 83443 04/01/2014 PRESCRIP TRANSMIT VIA ERX SY CPT-4: G8553 03/16/2014 PRESCRIP TRANSMIT VIA ERX SY CPT-4: G8553 03/09/2014 THER/PROPH/DIAG INJ SC/IM CPT-4: 46689 03/01/2014 TRIAMCINOLONE ACET INJ NOS CPT-4: J3301 03/01/2014 PRESCRIP TRANSMIT VIA ERX SY CPT-4: G8553 02/09/2014 URINE CULTURE/ COLONY COUNT CPT-4: 41814 10/30/2013 URINALYSIS NONAUTO W/O SCOPE CPT-4: 79976 10/21/2013 URINE CULTURE/ COLONY COUNT CPT-4: 57389 10/21/2013 DESTRUCT PREMALG LESION (Cryosurgery) CPT-4: 24540 PRESCRIP TRANSMIT VIA ERX SY CPT-4: G8553 10/05/2013 URINALYSIS NONAUTO W/O SCOPE CPT-4: 73330 08/04/2013 URINE CULTURE/ COLONY COUNT CPT-4: 25484 08/04/2013 PRESCRIP TRANSMIT VIA ERX SY CPT-4: G8553 08/04/2013 THER/PROPH/DIAG INJ SC/IM CPT-4: 69473 07/13/2013 TRIAMCINOLONE ACET INJ NOS CPT-4: J3301 07/13/2013 PRESCRIP TRANSMIT VIA ERX SY CPT-4: G8553 05/27/2013 URINALYSIS NONAUTO W/O SCOPE CPT-4: 51428 05/25/2013 URINE CULTURE/ COLONY COUNT CPT-4: 34205 05/25/2013 THER/PROPH/DIAG INJ SC/IM CPT-4: 09491 05/04/2013 VITAMIN B12 INJECTION CPT-4: J3420 05/04/2013 THER/PROPH/DIAG INJ SC/IM CPT-4: 77392 04/17/2013 VITAMIN B12 INJECTION CPT-4: J3420 04/17/2013 THER/PROPH/DIAG INJ SC/IM CPT-4: 47186 04/17/2013 METHYLPREDNISOLONE 40 MG INJ CPT-4: J1030 04/17/2013 TRIAMCINOLONE ACET INJ NOS CPT-4: J3301 04/17/2013 URINALYSIS NONAUTO W/O SCOPE CPT-4: 91705 04/06/2013 URINE CULTURE/ COLONY COUNT CPT-4: 95624 04/06/2013 PRESCRIP TRANSMIT VIA ERX SY CPT-4: G8553 04/06/2013 KETOROLAC TROMETHAMINE INJ CPT-4: J1885 06/25/2012 PROMETHAZINE HCL INJECTION CPT-4: J2550 06/25/2012 THER/PROPH/DIAG INJ SC/IM CPT-4: 27993 06/25/2012 THER/PROPH/DIAG INJ SC/IM CPT-4: 10359 06/24/2012 METHYLPREDNISOLONE 40 MG INJ CPT-4: J1030 06/24/2012 TRIAMCINOLONE ACET INJ NOS CPT-4: J3301 06/24/2012 URINE CULTURE/ COLONY COUNT CPT-4: 39901 06/24/2012 THER/PROPH/DIAG INJ SC/IM CPT-4: 01334 05/20/2012 KETOROLAC TROMETHAMINE INJ CPT-4: J1885 05/20/2012 THER/PROPH/DIAG INJ SC/IM CPT-4: 09031 05/20/2012 PROMETHAZINE HCL INJECTION CPT-4: J2550 05/20/2012 DRAIN/INJECT JOINT/BURSA CPT-4: 28880 02/13/2012 METHYLPREDNISOLONE 40 MG INJ CPT-4: J1030 02/13/2012 TRIAMCINOLONE ACET INJ NOS CPT-4: J3301 02/13/2012 THER/PROPH/DIAG INJ SC/IM CPT-4: 67304 11/14/2011 METHYLPREDNISOLONE 40 MG INJ CPT-4: J1030 11/14/2011 TRIAMCINOLONE ACET INJ NOS CPT-4: J3301 11/14/2011 THER/PROPH/DIAG INJ SC/IM CPT-4: 59550 09/12/2011 KETOROLAC TROMETHAMINE INJ CPT-4: J1885 09/12/2011 THER/PROPH/DIAG INJ SC/IM CPT-4: 93065 08/09/2011 METHYLPREDNISOLONE 40 MG INJ CPT-4: J1030 08/09/2011 TRIAMCINOLONE ACET INJ NOS CPT-4: J3301 08/09/2011 URINE CULTURE/ COLONY COUNT CPT-4: 35203 07/03/2011 URINE CULTURE/ COLONY COUNT CPT-4: 21665 06/04/2011 THER/PROPH/DIAG INJ SC/IM CPT-4: 99708 05/03/2011 METHYLPREDNISOLONE 40 MG INJ CPT-4: J1030 05/03/2011 TRIAMCINOLONE ACET INJ NOS CPT-4: J3301 05/03/2011 URINALYSIS NONAUTO W/O SCOPE CPT-4: 80637 01/24/2011 URINE CULTURE/ COLONY COUNT CPT-4: 71952 01/24/2011 FLUZONE, 5ML (Medicare) CPT-4: Q2038 01/02/2011 ADMIN INFLUENZA VIRUS VAC CPT-4: G0008 01/02/2011 ASSAY, GLUCOSE, BLOOD QUANT CPT-4: 79966 12/07/2010 URINE CULTURE/ COLONY COUNT CPT-4: 30055 11/02/2010 THER/PROPH/DIAG INJ SC/IM CPT-4: 65515 10/18/2010 METHYLPREDNISOLONE 40 MG INJ CPT-4: J1030 10/18/2010 TRIAMCINOLONE ACET INJ NOS CPT-4: J3301 10/18/2010 TRIAMCINOLONE ACET INJ NOS CPT-4: J3301 05/11/2010 METHYLPREDNISOLONE 40 MG INJ CPT-4: J1030 05/11/2010 THER/PROPH/DIAG INJ SC/IM CPT-4: 83732 05/11/2010 TRIAMCINOLONE ACET INJ NOS CPT-4: J3301 02/09/2010 METHYLPREDNISOLONE 40 MG INJ CPT-4: J1030 02/09/2010 THER/PROPH/DIAG INJ SC/IM CPT-4: 69930 02/09/2010 SERVICE REQUIRED FOR PMD CPT-4: G0372 02/09/2010 FLU VACCINE 3 YRS & > IM UP 64 CPT-4: 96371 0 PNEUMOCOCCAL VACC 23 RANDALL IM CPT-4: 91179 12/07/2009 ADMIN INFLUENZA VIRUS VAC CPT-4: G0008 12/07/2009 ADMIN PNEUMOCOCCAL VACCINE CPT-4: G0009 12/07/2009 TRIAMCINOLONE ACET INJ NOS CPT-4: J3301 05/26/2009 THER/PROPH/DIAG INJ SC/IM CPT-4: 68160 05/26/2009 METHYLPREDNISOLONE 80 MG INJ CPT-4: J1040 05/26/2009 Vital Signs Date Vital 09/02/2019 Blood Pressure 1: 124/80 Code: 8480-6 Heart Rate 1: 68 bpm Respiratory Rate: 22 bpm SpO2: 97% Temperature: 36.6 (C) / 97.8 (F) We ight: 233 lbs 08/25/2019 Blood Pressure 1: 136/82 Code: 8480-6 [...] 1: 114/72 Code: 8480-6 BMI: 37.8 Code: 09722-4 Heart Rate 1: 72 bpm Height: 5'3" [...] 1: 106/68 Code: 8480-6 BMI: 35.7 Code: 76651-4 Heart Rate 1: 72 bpm Height: 5'4" Respiratory Rate: 20 bpm SpO2: 98% Tempera ture: 36.7 (C) / 98.0 (F) Weight: 208 lbs 04/16/2018 Blood Pressure 1: 132/82 Code: 8480-6 BMI: 37.9 Code: 30324-3 Heart Rate 1: 72 bpm Height: 5'4" Respiratory Rate: 20 bpm SpO2: 96% Tempera ture: 37.1 (C) / 98.8 (F) Weight: 221 lbs 04/01/2018 Blood Pressure 1: 150/90 Code: 8480-6 Heart Rate 1: 72 bpm Respiratory Rate: 22 bpm SpO2: 95% Temperature: 36.4 (C) / 97.6 (F) We ight: 216 lbs 03/06/2018 Blood Pressure 1: 126/78 Code: 8480-6 BMI: 37.4 Code: 82174-9 Heart Rate 1: 68 bpm Height: 5'4" [...] ight: 222 lbs 12/25/2017 BMI: 37.8 Code: 42331-7 Heart Rate 1: 76 bpm Height: 5 '4" Respiratory Rate: 20 bpm SpO2: 96% Temperature: 37.3 (C) / 99.2 (F) Weight: 220 lbs 12/17/2017 Blood Pressure 1: 132/78 Code: 8480-6 BMI: 37.2 Code: 83542-1 Heart Rate 1: 88 bpm Height: 5'4" Respiratory Rate: 20 bpm SpO2: 96% Tempera ture: 37.3 (C) / 99.2 (F) Weight: 217 lbs 10/30/2017 Blood Pressure 1: 114/68 Code: 8480-6 BMI: 36.4 Code: 69816-3 Heart Rate 1: 72 bpm Height: 5'4" Respiratory Rate: 22 bpm SpO2: 96% Tempera ture: 36.8 (C) / 98.2 (F) Weight: 212 lbs 10/23/2017 Blood Pressure 1: 124/78 Code: 8480-6 Heart Rate 1: 72 bpm Respiratory Rate: 24 bpm SpO2: 94% Temperature: 36.6 (C) / 97.9 (F) We ight: 212 lbs 09/17/2017 Blood Pressure 1: 128/82 Code: 8480-6 BMI: 37.4 Code: 20400-3 Heart Rate 1: 72 bpm Height: 5'4" Respiratory Rate: 20 bpm SpO2: 96% Tempera ture: 37.0 (C) / 98.6 (F) Weight: 218 lbs 07/19/2017 Blood Pressure 1: 136/84 Code: 8480-6 BMI: 36.6 Code: 49167-6 Heart Rate 1: 88 bpm Height: 5'4" Respiratory Rate: 20 bpm SpO2: 97% Tempera ture: 36.7 (C) / 98.0 (F) Weight: 213 lbs 05/29/2017 Blood Pressure 1: 136/82 Code: 8480-6 BMI: 36.7 Code: 69013-0 Heart Rate 1: 72 bpm Height: 5'4" Respiratory Rate: 20 bpm SpO2: 97% Tempera ture: 36.9 (C) / 98.4 (F) Weight: 214 lbs 05/07/2017 Blood Pressure 1: 122/80 Code: 8480-6 BMI: 37.1 Code: 29920-1 Heart Rate 1: 80 bpm Height: 5'4" Respiratory Rate: 24 bpm SpO2: 96% Tempera ture: 36.1 (C) / 97.0 (F) Weight: 216 lbs 03/18/2017 BMI: 36.7 Code: 93679-7 Heart Rate 1: 80 bpm Height: 5 '4" Respiratory Rate: 22 bpm SpO2: 95% Temperature: 36.9 (C) / 98.4 (F) Weight: 214 lbs 02/27/2017 Blood Pressure 1: 146/94 Code: 8480-6 BMI: 36.6 Code: 37159-4 Heart Rate 1: 76 bpm Height: 5'4" Respiratory Rate: 22 bpm SpO2: 97% Tempera ture: 36.6 (C) / 97.9 (F) Weight: 213 lbs 02/22/2017 Blood Pressure 1: 126/90 Code: 8480-6 BMI: 36.4 Code: 64222-2 Heart Rate 1: 84 bpm Height: 5'4" Respiratory Rate: 22 bpm SpO2: 95% Tempera ture: 36.9 (C) / 98.4 (F) Weight: 212 lbs 01/23/2017 Blood Pressure 1: 146/82 Code: 8480-6 BMI: 37.6 Code: 21034-9 Heart Rate 1: 96 bpm Height: 5'4" Respiratory Rate: 20 bpm SpO2: 96% Tempera ture: 36.9 (C) / 98.4 (F) Weight: 219 lbs 12/20/2016 Blood Pressure 1: 126/70 Code: 8480-6 BMI: 37.2 Code: 00415-7 Heart Rate 1: 76 bpm Height: 5'4" Respiratory Rate: 22 bpm SpO2: 95% Tempera ture: 36.6 (C) / 97.8 (F) Weight: 217 lbs 10/08/2016 Blood Pressure 1: 128/82 Code: 8480-6 BMI: 36.9 Code: 36777-1 Heart Rate 1: 76 bpm Height: 5'4" Respiratory Rate: 20 bpm SpO2: 95% Tempera ture: 37.0 (C) / 98.6 (F) Weight: 215 lbs 09/19/2016 Blood Pressure 1: 144/78 Code: 8480-6 BMI: 37.8 Code: 44931-3 Heart Rate 1: 76 bpm Height: 5'4" Respiratory Rate: 22 bpm SpO2: 95% Tempera ture: 37.0 (C) / 98.6 (F) Weight: 220 lbs 08/20/2016 Blood Pressure 1: 140/86 Code: 8480-6 BMI: 37.4 Code: 76710-5 Heart Rate 1: 80 bpm Height: 5'4" Respiratory Rate: 20 bpm SpO2: 95% Tempera ture: 36.9 (C) / 98.4 (F) Weight: 218 lbs 06/19/2016 Blood Pressure 1: 12478 Code: 8480-6 BMI: 37.8 Code: 72171-5 Heart Rate 1: 74 bpm Height: 5'4" Respiratory Rate: 24 bpm SpO2: 96% Tempera ture: 36.9 (C) / 98.4 (F) Weight: 220 lbs 06/04/2016 Blood Pressure 1: 124/78 Code: 8480-6 BMI: 38.8 Code: 09935-7 Heart Rate 1: 72 bpm Height: 5'4" Respiratory Rate: 24 bpm SpO2: 95% Tempera ture: 36.8 (C) / 98.2 (F) Weight: 226 lbs 05/02/2016 Blood Pressure 1: 136/90 Code: 8480-6 BMI: 37.6 Code: 75185-3 Heart Rate 1: 72 bpm Height: 5'4" Respiratory Rate: 24 bpm SpO2: 96% Tempera ture: 36.9 (C) / 98.4 (F) Weight: 219 lbs 04/03/2016 Blood Pressure 1: 126/78 Code: 8480-6 BMI: 38.1 Code: 26381-9 Heart Rate 1: 72 bpm Height: 5'4" Respiratory Rate: 22 bpm SpO2: 94% Tempera ture: 36.9 (C) / 98.4 (F) Weight: 222 lbs 02/29/2016 Blood Pressure 1: 132/78 Code: 8480-6 Heart Rate 1: 78 bpm Height: Respiratory Rate: 24 bpm SpO2: 95% Temperature: 36.4 (C) / 97.6 (F) We ight: 02/02/2016 Blood Pressure 1: 124/78 Code: 8480-6 BMI: 37.6 Code: 08508-8 Heart Rate 1: 76 bpm Height: 5'4" Respiratory Rate: 20 bpm SpO2: 95% Tempera ture: 36.8 (C) / 98.2 (F) Weight: 219 lbs 01/05/2016 Blood Pressure 1: 126/70 Code: 8480-6 BMI: 37.1 Code: 05357-2 Heart Rate 1: 76 bpm Height: 5'4" Respiratory Rate: 20 bpm Temperature: 36 .6 (C) / 97.8 (F) Weight: 216 lbs 12/05/2015 Blood Pressure 1: 126/72 Code: 8480-6 BMI: 36.9 Code: 40533-3 Heart Rate 1: 92 bpm Height: 5'4" Respiratory Rate: 20 bpm Temperature: 36 .7 (C) / 98.1 (F) Weight: 215 lbs 10/26/2015 Blood Pressure 1: 142/80 Code: 8480-6 BMI: 36.4 Code: 73569-6 Heart Rate 1: 82 bpm Height: 5'4" Respiratory Rate: 24 bpm SpO2: 92% Tempera ture: 35.9 (C) / 96.7 (F) Weight: 212 lbs 10/05/2015 Blood Pressure 1: 136/82 Code: 8480-6 Heart Rate 1: 80 bpm Respiratory Rate: 18 bpm SpO2: 98% Temperature: 35.7 (C) / 96.3 (F) We ight: 214 lbs 09/15/2015 Blood Pressure 1: 116/80 Code: 8480-6 BMI: 34.6 Code: 29034-1 Heart Rate 1: 76 bpm Height: 5'6" Respiratory Rate: 20 bpm Temperature: 36 .6 (C) / 97.9 (F) Weight: 211 lbs 08/24/2015 Blood Pressure 1: 124/80 Code: 8480-6 BMI: 34.1 Code: 38873-8 Heart Rate 1: 68 bpm Height: 5'6" Respiratory Rate: 20 bpm Temperature: 36 .8 (C) / 98.3 (F) Weight: 208 lbs 07/05/2015 Blood Pressure 1: 114/78 Code: 8480-6 BMI: 33.9 Code: 84908-8 Heart Rate 1: 80 bpm Height: 5'6" Respiratory Rate: 20 bpm Temperature: 36 .6 (C) / 97.9 (F) Weight: 207 lbs 06/06/2015 Blood Pressure 1: 122/78 Code: 8480-6 BMI: 34.1 Code: 10854-4 Heart Rate 1: 76 bpm Height: 5'6" Respiratory Rate: 24 bpm SpO2: 96% Tempera ture: 36.4 (C) / 97.6 (F) Weight: 208 lbs 05/23/2015 Blood Pressure 1: 124/78 Code: 8480-6 Heart Rate 1: 76 bpm Respiratory Rate: 24 bpm SpO2: 93% Temperature: 36.8 (C) / 98.2 (F) We ight: 212 lbs 05/05/2015 Blood Pressure 1: 136/80 Code: 8480-6 BMI: 35.4 Code: 37550-2 Heart Rate 1: 76 bpm Height: 5'6" Respiratory Rate: 28 bpm Temperature: 37 .0 (C) / 98.6 (F) Weight: 216 lbs 03/30/2015 Blood Pressure 1: 132/86 Code: 8480-6 BMI: 35.2 Code: 78535-0 Heart Rate 1: 84 bpm Height: 5'6" Respiratory Rate: 24 bpm Temperature: 36 .7 (C) / 98.0 (F) Weight: 215 lbs 02/03/2015 Blood Pressure 1: 122/74 Code: 8480-6 BMI: 35.7 Code: 02132-2 Heart Rate 1: 84 bpm Height: 5'6" Respiratory Rate: 20 bpm Temperature: 36 .9 (C) / 98.5 (F) Weight: 218 lbs 12/29/2014 Blood Pressure 1: 132/80 Code: 8480-6 BMI: 35.1 Code: 64058-3 Heart Rate 1: 80 bpm Height: 5'6" Respiratory Rate: 20 bpm Temperature: 36 .6 (C) / 97.8 (F) Weight: 214 lbs 09/02/2014 Blood Pressure 1: 128/92 Code: 8480-6 BMI: 34.7 Code: 06273-6 Heart Rate 1: 84 bpm Height: 5'6" Respiratory Rate: 26 bpm Temperature: 36 .8 (C) / 98.2 (F) Weight: 212 lbs 08/25/2014 Blood Pressure 1: 124/80 Code: 8480-6 BMI: 34.7 Code: 07011-8 Heart Rate 1: 78 bpm Height: 5'6" Respiratory Rate: 22 bpm SpO2: 97% Tempera ture: 36.6 (C) / 97.8 (F) Weight: 212 lbs 04/01/2014 Blood Pressure 1: 142/84 Code: 8480-6 BMI: 34.4 Code: 01437-7 Heart Rate 1: 74 bpm Height: 5'5" Respiratory Rate: 20 bpm Temperature: 36 .4 (C) / 97.6 (F) Weight: 207 lbs 03/16/2014 Blood Pressure 1: 142/90 Code: 8480-6 BMI: 34.6 Code: 39732-9 Heart Rate 1: 76 bpm Height: 5'5" Respiratory Rate: 24 bpm Temperature: 36 .5 (C) / 97.7 (F) Weight: 208 lbs 03/09/2014 Blood Pressure 1: 116/70 Code: 8480-6 BMI: 35.3 Code: 55733-3 Heart Rate 1: 72 bpm Height: 5'5" [...] 1: 128/86 Code: 8480-6 BMI: 34.3 Code: 81215-5 Heart Rate 1: 84 bpm Height: 5'5" Respiratory Rate: 20 bpm Temperature: 36 .7 (C) / 98.0 (F) Weight: 206 lbs 12/23/2013 Blood Pressure 1: 122/70 Code: 8480-6 BMI: 34.3 Code: 14314-7 Heart Rate 1: 68 bpm Height: 5'5" Respiratory Rate: 20 bpm Temperature: 36 .8 (C) / 98.2 (F) Weight: 206 lbs 10/05/2013 Blood Pressure 1: 118/76 Code: 8480-6 BMI: 34.1 Code: 17035-9 Heart Rate 1: 68 bpm Height: 5'5" Respiratory Rate: 20 bpm SpO2: 98% Tempera ture: 36.6 (C) / 97.9 (F) Weight: 205 lbs 08/04/2013 Blood Pressure 1: 126/82 Code: 8480-6 BMI: 33.3 Code: 25500-0 Heart Rate 1: 76 bpm Height: 5'5" Respiratory Rate: 20 bpm Temperature: 36 .8 (C) / 98.2 (F) Weight: 200 lbs 07/03/2013 Blood Pressure 1: 124/82 Code: 8480-6 BMI: 33.3 Code: 70797-4 Heart Rate 1: 72 bpm Height: 5'5" Respiratory Rate: 22 bpm Temperature: 36 .1 (C) / 97.0 (F) Weight: 200 lbs 05/27/2013 Blood Pressure 1: 126/82 Code: 8480-6 Heart Rate 1: 74 bpm Respiratory Rate: 20 bpm Temperature: 36.0 (C) / 96.8 (F) Weight: 199 lbs 04/06/2013 Blood Pressure 1: 118/80 Code: 8480-6 BMI: 35.2 Code: 32820-6 Heart Rate 1: 80 bpm Height: 5'4" Respiratory Rate: 20 bpm Temperature: 37 .4 (C) / 99.3 (F) Weight: 205 lbs 11/10/2012 Blood Pressure 1: 128/82 Code: 8480-6 Heart Rate 1: 84 bpm Respiratory Rate: 20 bpm Temperature: 36.7 (C) / 98.0 (F) Weight: 199 lbs 09/02/2012 Blood Pressure 1: 116/82 Code: 8480-6 BMI: 34.2 Code: 23808-5 Heart Rate 1: 88 bpm Height: 5'4" Respiratory Rate: 22 bpm Temperature: 36 .6 (C) / 97.8 (F) Weight: 199 lbs 08/04/2012 Blood Pressure 1: 128/74 Code: 8480-6 BMI: 34.0 Code: 18636-1 Heart Rate 1: 92 bpm Height: 5'4" Respiratory Rate: 20 bpm Temperature: 36 .4 (C) / 97.5 (F) Weight: 198 lbs 07/21/2012 Blood Pressure 1: 124/86 Code: 8480-6 Heart Rate 1: 116 bpm Respiratory Rate: 24 bpm Temperature: 36.8 (C) / 98.2 (F) 07/02/2012 Blood Pressure 1: 116/88 Code: 8480-6 BMI: 33.6 Code: 74753-9 Heart Rate 1: 76 bpm Height: 5'4" Respiratory Rate: 20 bpm Temperature: 36 .8 (C) / 98.3 (F) Weight: 196 lbs 06/24/2012 Blood Pressure 1: 124/80 Code: 8480-6 BMI: 34.3 Code: 65445-4 Heart Rate 1: 72 bpm Height: 5'4" SpO2: 96% Temperature: 36.3 (C) / 97.3 (F) Weight: 200 lbs 05/20/2012 Blood Pressure 1: 116/88 Code: 8480-6 BMI: 33.8 Code: 36991-9 Heart Rate 1: 80 bpm Height: 5'4" Respiratory Rate: 22 bpm Temperature: 36 .9 (C) / 98.4 (F) Weight: 197 lbs 05/08/2012 Blood Pressure 1: 128/86 Code: 8480-6 BMI: 33.8 Code: 81510-6 Heart Rate 1: 76 bpm Height: 5'4" Respiratory Rate: 26 bpm SpO2: 95% Tempera ture: 36.1 (C) / 97.0 (F) Weight: 197 lbs 04/22/2012 Blood Pressure 1: 106/64 Code: 8480-6 BMI: 33.8 Code: 90867-1 Heart Rate 1: 70 bpm Height: 5'4" Temperature: 36.1 (C) / 97.0 (F) Weight: 197 lbs 02/13/2012 Blood Pressure 1: 126/82 Code: 8480-6 BMI: 34.7 Code: 23367-2 Heart Rate 1: 64 bpm Height: 5'4" Respiratory Rate: 20 bpm Temperature: 36 .6 (C) / 97.8 (F) Weight: 202 lbs 01/28/2012 Blood Pressure 1: 116/80 Code: 8480-6 BMI: 34.7 Code: 09344-0 Heart Rate 1: 76 bpm Height: 5'4" Respiratory Rate: 20 bpm Temperature: 36 .8 (C) / 98.3 (F) Weight: 202 lbs 12/26/2011 Blood Pressure 1: 132/82 Code: 8480-6 BMI: 36.0 Code: 85318-9 Heart Rate 1: 68 bpm Height: 5'4" Respiratory Rate: 22 bpm Temperature: 36 .7 (C) / 98.0 (F) Weight: 210 lbs 11/14/2011 Blood Pressure 1: 124/80 Code: 8480-6 BMI: 36.4 Code: 03496-8 Heart Rate 1: 76 bpm Height: 5'4" Respiratory Rate: 20 bpm Temperature: 36 .8 (C) / 98.2 (F) Weight: 212 lbs 09/12/2011 Blood Pressure 1: 108/74 Code: 8480-6 BMI: 37.1 Code: 73511-5 Heart Rate 1: 72 bpm Height: 5'4" Respiratory Rate: 20 bpm Temperature: 37 .0 (C) / 98.6 (F) Weight: 216 lbs 08/15/2011 Blood Pressure 1: 122/80 Code: 8480-6 BMI: 36.9 Code: 45262-5 Heart Rate 1: 76 bpm Height: 5'4" Respiratory Rate: 20 bpm Temperature: 36 .2 (C) / 97.1 (F) Weight: 215 lbs 08/09/2011 Blood Pressure 1: 112/78 Code: 8480-6 BMI: 36.9 Code: 19218-2 Heart Rate 1: 68 bpm Height: 5'4" Respiratory Rate: 20 bpm Temperature: 36 .7 (C) / 98.0 (F) Weight: 215 lbs 07/03/2011 Blood Pressure 1: 140/94 Code: 8480-6 BMI: 36.2 Code: 07148-9 Heart Rate 1: 68 bpm Height: 5'4" Temperature: 36.0 (C) / 96.8 (F) Weight: 211 lbs 06/04/2011 Blood Pressure 1: 124/70 Code: 8480-6 BMI: 36.7 Code: 89910-2 Heart Rate 1: 68 bpm Height: 5'4" Respiratory Rate: 20 bpm Temperature: 36 .6 (C) / 97.9 (F) Weight: 214 lbs 05/03/2011 Blood Pressure 1: 130/76 Code: 8480-6 BMI: 36.4 Code: 23713-6 Heart Rate 1: 74 bpm Height: 5'5" Temperature: 36.2 (C) / 97.2 (F) Weight: 219 lbs 04/05/2011 Blood Pressure 1: 124/86 Code: 8480-6 BMI: 35.9 Code: 81319-4 Heart Rate 1: 76 bpm Height: 5'6" Respiratory Rate: 22 bpm Temperature: 36 .3 (C) / 97.3 (F) Weight: 219 lbs 03/08/2011 Blood Pressure 1: 112/78 Code: 8480-6 BMI: 35.1 Code: 03995-8 Heart Rate 1: 80 bpm Height: 5'6" Respiratory Rate: 26 bpm Temperature: 36 .9 (C) / 98.4 (F) Weight: 214 lbs 01/24/2011 Blood Pressure 1: 110/82 Code: 8480-6 BMI: 35.6 Code: 82375-5 Heart Rate 1: 80 bpm Height: 5'6" Temperature: 36.1 (C) / 97.0 (F) Weight: 217 lbs 01/02/2011 Blood Pressure 1: 106/72 Code: 8480-6 BMI: 35.6 Code: 44478-9 Heart Rate 1: 76 bpm Height: 5'6" [...] 1: 120/74 Code: 8480-6 BMI: 35.9 Code: 04579-6 Heart Rate 1: 72 bpm Height: 5'5" Temperature: 36.3 (C) / 97.4 (F) Weight: 216 lbs 09/19/2010 Blood Pressure 1: 124/80 Code: 8480-6 BMI: 35.4 Code: 05342-8 Heart Rate 1: 76 bpm Height: 5'5" [...] 1: 122/78 Code: 8480-6 BMI: 37.4 Code: 33952-9 Heart Rate 1: 84 bpm Height: 5'5" Weight: 225 lbs Functional Status No Functional Status data Reason For Visit Reason For Visit Effective Dates Notes follow up 09/02/2019 back pain 08/25/2019 ~generic 08/10/2019 pt has [...] 10/30/2017 follow up 10/23/2017 Hospital fw from [facility] Annual Checkup 09/17/2017 Wellness Physical fo [...] 07/24/16 follow up 06/19/2016 1 week hospital [facility] owup follow up 06/04/2016 1mo fwup follow up 05/02/2016 Hospital fwup follow up 04/03/2016 dyspnea 02/29/2016 low grade 99s follow up 02/02/2016 ER fwup diabetes mellitus 01/05/2016 painful urination 12/05/2015 follow up 10/26/2015 ER visit from at [facility] for COPD Exacerbation follow up 10/05/2015 ER Visit gait abnormality 09/15/2015 Patient requesting kelly pineda paperwork to be filled out disturbances of thinking 08/24/2015 follow up 07/05/2015 4wk fwup follow up 06/06/2015 [facility] fw cough 05/23/2015 follow up 05/05/2015 dyspnea 03/30/2015 [facility] needs new orde r for O2 abdominal pain 02/03/2015 cyst 12/29/2014 vs abscess follow up 09/02/2014 [facility] headache 08/25/2014 facial drooping follow up 04/01/2014 ER follow up 03/16/2014 1wk fwup follow up 03/09/2014 1mo fwup and bronchi tis fwup follow up 03/03/2014 2 day follow up 03/01/2014 ER follow up 02/09/2014 [facility] gastroesophageal reflux 12/23/2013 painful urination 10/30/2013 [...] up 10/18/[address] Marcela sagastume w [facility], having increased allergy symptoms. Would like steroid [...] f/u follow up 12/07/[address] [facility], done with PT--finished about 2wks ago follow up 11/08/2009 2wk fwup follow up 10/24/2009 hosp fwup ~generic 07/25/2009 bilateral earlobe re dness/swelling, pain radiating into neck, refill Demerol ~generic 05/26/2009 FALLING A LOT, SAVEL LA NOT HELPING FIBROMYALGIA PAIN, LT HAND LACERATION-FELL INTO NAIL 05/25/09 Encounters Encounter Performer Location Codes Date () OFFICE/OUTPATIENT VISIT EST Diagnosis: Dizziness and giddiness[ICD10: R42] Diagnosis: Cephalgia[ICD10: R51] Diagnosis: History of recent fall[ICD10: Z91.81] Diagnosis: Head trauma[ICD10: S09.90XA] Diagnosis: Hyperglycemia[ICD10: R73.9] Diagnosis: Edema[ICD10: R60.9] Belia Shi [employer] CPT-4: 99651 09/02/2019 OFFICE/OUTPATIENT VISIT EST Diagnosis: Fibromyalgia[ICD10: M79.7] Diagnosis: Muscle weakness[ICD10: M62.81] Diagnosis: Generalized pain[ICD10: R52] Diagnosis: Hypoxia[ICD10: R09.02] Diagnosis: Migraine[ICD10: G43.909] Belia POP [employer] CPT-4: 59201 08/25/2019 ([id number]) OFFICE/OUTPATIENT VISIT EST Diagnosis: Yawning[ICD10: R06.89] Diagnosis: LION (obstructive sleep apnea)[ICD10: G47.33] Pattie BRUNSON [employer] CPT-4: 85744 08/10/2019 ([id number]) OFFICE/OUTPATIENT VISIT EST Diagnosis: Pelvic pain in female[ICD10: R10.2] Diagnosis: Left leg swelling[ICD10: M79.89] Diagnosis: Dyspnea[ICD10: R06.00] Diagnosis: Constipation[ICD10: K59.00] Pattie BRUNSON [employer] CPT-4: 91761 08/04/2019 ([id number]) OFFICE/OUTPATIENT VISIT EST Diagnosis: Inspiratory stridor[ICD10: R06.1] Diagnosis: Diarrhea[ICD10: R19.7] Belia Reid [facility] CPT-4: 9921 3 07/06/2019 ([id number]) OFFICE/OUTPATIENT VISIT EST Diagnosis: Left leg swelling[ICD10: M79.89] Diagnosis: Dyspnea[ICD10: R06.00] Belia Reid [facility] CPT-4: 9921 3 06/24/2019 ([id number]) OFFICE/OUTPATIENT VISIT EST Diagnosis: Acute bronchitis[ICD10: J20.9] Diagnosis: Colitis[ICD10: K52.9] Belia REID [employer] [facility] CPT-4: 09660 06/16/2019 ([id number]) OFFICE/OUTPATIENT VISIT EST Diagnosis: Diarrhea[ICD10: R19.7] Diagnosis: Abdominal bloating[ICD10: R14.0] Belia Reid [facility] CPT- 4: 96867 06/08/2019 ([id number]) OFFICE/OUTPATIENT VISIT EST Diagnosis: Acute febrile illness[ICD10: R50.9] Diagnosis: Colitis[ICD10: K52.9] Belia Reid [facility] CPT-4: 73495 05/26/2019 ([id number]) OFFICE/OUTPATIENT VISIT EST Diagnosis: Chronic obstructive pulmonary disease, unspecified[ICD10: J44.9] Diagnosis: Pulmonary fibrosis[ICD10: J84.10] Diagnosis: Intermittent stridor[ICD10: R06.1] Diagnosis: Muscle weakness[ICD10: M62.81] Belia REID [employer] [facility] CPT-4: 45648 05/13/2019 ([id number]) OFFICE/OUTPATIENT VISIT EST Diagnosis: Stridor[ICD10: R06.1] Diagnosis: COUGH[ICD10: R05] Belia REID [employer] [facility] CPT-4: 35912 05/06/2019 ([id number]) OFFICE/OUTPATIENT VISIT EST Diagnosis: Stridor[ICD10: R06.1] Diagnosis: Muscle, jerky movements (uncontrolled)[ICD10: G25.5] Belia REID DO [facility] CPT-4: 78893 04/29/2019 ([id number]) OFFICE/OUTPATIENT VISIT EST Diagnosis: Upper respiratory infection[ICD10: J06.9] Diagnosis: Flank pain[ICD10: R10.9] Diagnosis: Weight gain[ICD10: R63.5] Pattie AMBRIZ DO [facility] CPT-4: 91572 04/16/2019 ([id number]) OFFICE/OUTPATIENT VISIT EST Diagnosis: Generalized pruritus[ICD10: L29.9] Belia REID [employer] [facility] CPT-4: 09712 04/08/2019 ([id number]) OFFICE/OUTPATIENT VISIT EST Diagnosis: Acute bursitis of left shoulder[ICD10: M75.52] Diagnosis: Cervicalgia[ICD10: M54.2] Diagnosis: Chest wall pain[ICD10: R07.89] Belia REID [employer] [facility] CPT-4: 15157 01/22/2019 ([id number]) OFFICE/OUTPATIENT VISIT EST Diagnosis: Abdominal pain[ICD10: R10.9] Diagnosis: Pyelonephritis[ICD10: N12] Pattie DOMINGUEZ [employer] [facility] CPT-4: 73357 01/07/2019 ([id number]) OFFICE/OUTPATIENT VISIT EST Diagnosis: Low back pain[ICD10: M54.5] Diagnosis: Left lumbar radiculopathy[ICD10: M54.16] Diagnosis: Left flank pain[ICD10: R10.9] Diagnosis: Left lower quadrant pain[ICD10: R10.32] Diagnosis: FLU VACCINE[ICD10: Z23] Belia FREDERICK [facility] CPT-4: 55659 12/24/2018 ([id number]) OFFICE/OUTPATIENT VISIT EST Diagnosis: Migraine, unspecified, not intractable, without status migrainosus[ICD10: G43.909] Diagnosis: Fibromyalgia[ICD10: M79.7] Belia DOMINGUEZ [facility] CPT-4: 13950 11/20/2018 ([id number]) OFFICE/OUTPATIENT VISIT EST Diagnosis: Migraine, unspecified, intractable, without status migrainosus[ICD10: G43.919] Diagnosis: Acute sinusitis, unspecified[ICD10: J01.90] Pattie REID DO [facility] CPT-4: 19671 11/04/2018 ([id number]) OFFICE/OUTPATIENT VISIT EST Diagnosis: Pain in left wrist[ICD10: M25.532] Diagnosis: Other dorsalgia[ICD10: M54.89] Pattie REID DO [facility] CPT-4: 45279 09/08/2018 ([id number]) OFFICE/OUTPATIENT VISIT EST Diagnosis: Acute stress reaction[ICD10: F43.0] Diagnosis: Pruritus, unspecified[ICD10: L29.9] 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, 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] Belia REID [employer] [facility] CPT-4: 64378 08/20/2018 ([id number]) OFFICE/OUTPATIENT VISIT EST Diagnosis: Hypotension due to drugs[ICD10: I95.2] Diagnosis: Paroxysmal atrial fibrillation[ICD10: I48.0] Diagnosis: Localized edema[ICD10: R60.0] Belia REID [employer] [facility] CPT-4: 82915 06/19/2018 ([id number]) OFFICE/OUTPATIENT VISIT EST Diagnosis: Generalized hyperhidrosis[ICD10: R61] Diagnosis: Essential (primary) hypertension[ICD10: I10] Diagnosis: Supraventricular tachycardia[ICD10: I47.1] Belia REID DO [facility] CPT-4: 12835 06/09/2018 ([id number]) OFFICE/OUTPATIENT VISIT EST Diagnosis: Stridor[ICD10: R06.1] Diagnosis: Dependence on supplemental oxygen[ICD10: Z99.81] Diagnosis: Weakness[ICD10: R53.1] Diagnosis: Supraventricular tachycardia[ICD10: I47.1] Belia REID DO [facility] CPT-4: 29065 05/21/2018 ([id number]) OFFICE/OUTPATIENT VISIT EST Diagnosis: Cervical disc disorder with radiculopathy, unspecified cervical region[ICD10: M50.10] Belia REID [facility] CPT-4: 64227 04/16/2018 ([id number]) OFFICE/OUTPATIENT VISIT EST Diagnosis: Migraine, unspecified, intractable, without status migrainosus[ICD10: G43.919] Diagnosis: Fibromyalgia[ICD10: M79.7] Pattie DOMINGUEZ [facility] CPT-4: 87681 04/01/2018 ([id number]) NURSE/OUTPATIENT VISIT EST Diagnosis: Hematuria, unspecified[ICD10: R31.9] Diagnosis: Dysuria[ICD10: R30.0] Belia REID [facility] CPT-4: 84397 03/17/2018 ([id number]) OFFICE/OUTPATIENT VISIT EST Diagnosis: Erythema intertrigo[ICD10: L30.4] Diagnosis: Chronic obstructive pulmonary disease with (acute) exacerbation[ICD10: J44.1] Diagnosis: Type 2 diabetes mellitus with hyperglycemia[ICD10: E11.65] Belia REID [facility] CPT-4: 59511 03/06/2018 ([id number]) OFFICE/OUTPATIENT VISIT EST Diagnosis: Cervicalgia[ICD10: M54.2] Pattie AMBRIZ [facility] CPT-4: 06657 02/05/2018 ([id number]) OFFICE/OUTPATIENT VISIT EST Diagnosis: Candidiasis of skin and nail[ICD10: B37.2] Diagnosis: Cervicalgia[ICD10: M54.2] Pattie AMBRIZ [facility] CPT-4: 66400 01/20/2018 ([id number]) OFFICE/OUTPATIENT VISIT EST Diagnosis: Pain in thoracic spine[ICD10: M54.6] Diagnosis: Radiculopathy, thoracic region[ICD10: M54.14] Belia REID [facility] CPT-4: 93436 12/25/2017 ([id number]) OFFICE/OUTPATIENT VISIT EST Diagnosis: Pain in thoracic spine[ICD10: M54.6] Diagnosis: Other muscle spasm[ICD10: M62.838] Diagnosis: FLU VACCINE[ICD10: Z23] Diagnosis: PNEUMOCOCCAL VACCINE[ICD10: Z23] Belia REID DO [facility] CPT-4: 85919 12/17/2017 ([id number]) OFFICE/OUTPATIENT VISIT EST Diagnosis: Chronic obstructive pulmonary disease with (acute) exacerbation[ICD10: J44.1] Belia REID DO [facility] CPT- 4: 45813 10/30/2017 ([id number]) OFFICE/OUTPATIENT VISIT EST Diagnosis: Chronic obstructive pulmonary disease with acute lower respiratory infection[ICD10: J44.0] Diagnosis: Mild intermittent asthma with (acute) exacerbation[ICD10: J45.21] Belia REID DO [facility] CPT-4: 91280 10/23/2017 ([id number]) NURSE/OUTPATIENT VISIT EST Diagnosis: Migraine, unspecified, not intractable, without status migrainosus[ICD10: G43.909] Belia REID DO [facility] CPT - 4: 29329 08/26/2017 ([id number]) OFFICE/OUTPATIENT VISIT EST Diagnosis: Urinary tract infection, site not specified[ICD10: N39.0] Diagnosis: Encounter for screening for osteoporosis[ICD10: Z13.820] Diagnosis: Encounter for screening mammogram for malignant neoplasm of breast[ICD10: Z12.31] Diagnosis: Acute bronchitis, unspecified[ICD10: J20.9] Pattie REID DO [facility] CPT-4: 00006 07/19/2017 ([id number]) OFFICE/OUTPATIENT VISIT EST Diagnosis: Rash and other nonspecific skin eruption[ICD10: R21] Pattie REID DO [facility] CPT-4: 58358 05/29/2017 ([id number]) OFFICE/OUTPATIENT VISIT EST Diagnosis: Diarrhea, unspecified[ICD10: R19.7] Diagnosis: Tinea corporis[ICD10: B35.4] Diagnosis: Tinea cruris[ICD10: B35.6] Diagnosis: Migraine, unspecified, not intractable, without status migrainosus[ICD10: G43.909] Belia SMITHER [facility] CPT - 4: 62345 05/07/2017 ([id number]) OFFICE/OUTPATIENT VISIT EST Diagnosis: Stridor[ICD10: R06.1] Diagnosis: Chronic obstructive pulmonary disease with (acute) exacerbation[ICD10: J44.1] Belia REID [facility] CPT- 4: 81422 03/18/2017 ([id number]) OFFICE/OUTPATIENT VISIT EST Diagnosis: Type 2 diabetes mellitus with hyperglycemia[ICD10: E11.65] Belia REID [facility] CPT-4: 70893 02/27/2017 OFFICE/OUTPATIENT VISIT EST Diagnosis: Type 2 diabetes mellitus with hyperglycemia[ICD10: E11.65] Pattie REID [facility] CPT-4: 71034 02/22/2017 ([id number]) OFFICE/OUTPATIENT VISIT EST Diagnosis: Urinary tract infection, site not specified[ICD10: N39.0] Diagnosis: Pneumonia, unspecified organism[ICD10: J18.9] Diagnosis: Type 2 diabetes mellitus with hyperglycemia[ICD10: E11.65] [facility]: 64785 01/23/2017 ([id number]) OFFICE/OUTPATIENT VISIT EST Diagnosis: Type 2 diabetes mellitus with hyperglycemia[ICD10: E11.65] Diagnosis: Localized edema[ICD10: R60.0] Diagnosis: PNEUMOCOCCAL VACCINE[ICD10: Z23] Diagnosis: FLU VACCINE[ICD10: Z23] Belia SMITH [facility] CPT-4: 11559 12/20/2016 OFFICE/OUTPATIENT VISIT EST Diagnosis: Pain in thoracic spine[ICD10: M54.6] Diagnosis: Low back pain[ICD10: M54.5] Diagnosis: Cervicalgia[ICD10: M54.2] Diagnosis: Cough[ICD10: R05] Celeste Ferreira BELIA REID [facility] CPT-4: 56419 10/08/2016 ([id number]) OFFICE/OUTPATIENT VISIT EST Diagnosis: Primary insomnia[ICD10: F51.01] Diagnosis: Migraine, unspecified, not intractable, without status migrainosus[ICD10: G43.909] Diagnosis: Type 2 diabetes mellitus with hyperglycemia[ICD10: E11.65] Belia REID DO [facility] CPT-4: 67078 09/19/2016 ([id number]) OFFICE/OUTPATIENT VISIT EST Diagnosis: Migraine, unspecified, not intractable, without status migrainosus[ICD10: G43.909] Diagnosis: Generalized abdominal pain[ICD10: R10.84] Diagnosis: Cough[ICD10: R05] Belia REID DO [facility] CPT-4: 07416 08/20/2016 ([id number]) OFFICE/OUTPATIENT VISIT EST Diagnosis: Chronic obstructive pulmonary disease, unspecified[ICD10: J44.9] Diagnosis: Stridor[ICD10: R06.1] Belia REID DO [facility] CPT-4: 96536 06/19/2016 ([id number]) OFFICE/OUTPATIENT VISIT EST Diagnosis: Chronic obstructive pulmonary disease, unspecified[ICD10: J44.9] Diagnosis: Personal history of urinary (tract) infections[ICD10: Z87.440] Belia REID DO [facility] CPT-4: 68622 06/04/2016 ([id number]) OFFICE/OUTPATIENT VISIT EST Diagnosis: Stridor[ICD10: R06.1] Diagnosis: Chronic obstructive pulmonary disease with acute lower respiratory infection[ICD10: J44.0] Diagnosis: Other specified diseases of intestine[ICD10: K63.89] Diagnosis: Cystitis, unspecified without hematuria[ICD10: N30.90] Belia REID DO [facility] CPT-4: 55701 05/02/2016 ([id number]) OFFICE/OUTPATIENT VISIT EST Diagnosis: Fibromyalgia[ICD10: M79.7] Diagnosis: Urinary tract infection, site not specified[ICD10: N39.0] Belia REID DO [facility] CPT-4: 90796 04/03/2016 ([id number]) OFFICE/OUTPATIENT VISIT EST Diagnosis: Unspecified asthma, uncomplicated[ICD10: J45.909] Diagnosis: Cough[ICD10: R05] Lidia Jaiden REID [facility] T-4: 18447 02/29/2016 ([id number]) OFFICE/OUTPATIENT VISIT EST Diagnosis: Migraine, unspecified, intractable, without status migrainosus[ICD10: G43.919] Diagnosis: Urinary tract infection, site not specified[ICD10: N39.0] Beliahanna REID [facility] CPT-4: 95088 02/02/2016 ([id number]) OFFICE/OUTPATIENT VISIT EST Diagnosis: Urinary tract infection, site not specified[ICD10: N39.0] Diagnosis: Unspecified abdominal pain[ICD10: R10.9] Diagnosis: Pain in thoracic spine[ICD10: M54.6] Diagnosis: Type 2 diabetes mellitus with diabetic neuropathic arthropathy[ICD10: E11.610] Belia REID [facility] CPT-4: 80858 12/05/2015 ([id number]) OFFICE/OUTPATIENT VISIT EST Diagnosis: Chronic obstructive pulmonary disease with (acute) exacerbation[ICD10: J44.1] Diagnosis: Migraine, unspecified, not intractable, without status migrainosus[ICD10: G43.909] Lidia REID [employer] [facility] CPT -4: 12860 10/26/2015 ([id number]) OFFICE/OUTPATIENT VISIT EST Diagnosis: Hematuria, unspecified[ICD10: R31.9] Diagnosis: Urinary tract infection, site not specified[ICD10: N39.0] Lidia TomlinsonMayda ANUSHKA [facility] CPT-4: 35667 10/05/2015 OFFICE/OUTPATIENT VISIT EST Diagnosis: Chronic obstructive pulmonary disease, unspecified[ICD10: J44.9] Diagnosis: Muscle weakness (generalized)[ICD10: M62.81] Diagnosis: Polyneuropathy, unspecified[ICD10: G62.9] Diagnosis: Other intervertebral disc degeneration, 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] Diagnosis: Fibromyalgia[ICD10: M79.7] Belia Anushka HSUQUELINE Yuridia DOMINGUEZ [employer] [facility] CPT-4: 84809 09/15/2015 ([id number]) OFFICE/OUTPATIENT VISIT EST Diagnosis: Disorientation, unspecified[ICD10: R41.0] Diagnosis: Headache[ICD10: R51] Diagnosis: Paresthesia of skin[ICD10: R20.2] Lidia REID [employer] [facility] CPT-4: 24113 08/24/2015 ([id number]) OFFICE/OUTPATIENT VISIT EST Diagnosis: Type 2 diabetes mellitus with hyperglycemia[ICD10: E11.65] Diagnosis: Chronic obstructive pulmonary disease with acute lower respiratory infection[ICD10: J44.0] Belia REID DO [facility] CPT-4: 59861 07/05/2015 ([id number]) OFFICE/OUTPATIENT VISIT EST Diagnosis: Mild intermittent asthma with (acute) exacerbation[ICD10: J45.21] Diagnosis: Chronic obstructive pulmonary disease, unspecified[ICD10: J44.9] Belia REID [facility] CPT-4: 85783 06/06/2015 ([id number]) OFFICE/OUTPATIENT VISIT EST Diagnosis: Chronic obstructive pulmonary disease with (acute) exacerbation[ICD10: J44.1] Lidia REID [facility] CPT- 4: 26204 05/23/2015 ([id number]) OFFICE/OUTPATIENT VISIT EST Diagnosis: Type 2 diabetes mellitus with hyperglycemia[ICD10: E11.65] Diagnosis: Functional dyspepsia[ICD10: K30] Belia REID [employer] [facility] CPT-4: 85639 05/05/2015 ([id number]) OFFICE/OUTPATIENT VISIT EST Diagnosis: Type 2 diabetes mellitus with hyperglycemia[ICD10: E11.65] Diagnosis: Glycosuria[ICD10: R81] Diagnosis: Urinary tract infection, site not specified[ICD10: N39.0] Belia REID [employer] [facility] CPT-4: 72892 03/30/2015 ([id number]) OFFICE/OUTPATIENT VISIT EST Diagnosis: Generalized abdominal pain[ICD10: R10.84] Diagnosis: Diarrhea, unspecified[ICD10: R19.7] Diagnosis: Urinary tract infection, site not specified[ICD10: N39.0] Diagnosis: Gastro-esophageal reflux disease without esophagitis[ICD10: K21.9] Belia REID [employer] [facility] CPT-4: 58001 02/03/2015 ([id number]) OFFICE/OUTPATIENT VISIT EST Diagnosis: Other specified noninflammatory disorders of vagina[ICD10: N89.8] Diagnosis: Follicular disorder, unspecified[ICD10: L73.9] Diagnosis: Functional dyspepsia[ICD10: K30] Diagnosis: FLU VACCINE[ICD10: Z23] Beliahanna Reid [facility]IA BushraMayda [facility] CPT-4: 03189 12/29/2014 ([id number]) OFFICE/OUTPATIENT VISIT EST 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] Diagnosis: RESTLESS LEGS SYNDROME[ICD9: 333.94] Diagnosis: MIGRAINE NOS/NOT INTRCBL[ICD9: 346.90] Belia Smithotoniel SONJA ULUBNA BushraMayda [facility] CPT-4: 73611 09/02/2014 ([id number]) OFFICE/OUTPATIENT VISIT EST Diagnosis: Cervical radiculopathy[ICD9: 723.4] Diagnosis: Cervicalgia[ICD9: 723.1] Diagnosis: Degenerative disc disease, cervical[ICD9: 722.4] 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I[ICD9: 250.00] Beliahanna Humphriesnilson BRUNSON BushraMayda [facility] CPT-[facility]: 33377 04/01/2014 OFFICE/OUTPATIENT VISIT EST Diagnosis: Reactive airway disease[ICD9: 493.90] Belia Anushka HSUPAUL LUBNA BushraMayda [facility] CPT-4: 22373 03/16/2014 ([id number]) OFFICE/OUTPATIENT VISIT EST Diagnosis: BRONCHITIS, ACUTE[ICD9: 466.0] Diagnosis: Reactive airway disease[ICD9: 493.90] Belia FONTAINE LUBNA BushraMayda [facility] CPT-4: 51872 03/09/2014 OFFICE/OUTPATIENT VISIT EST Diagnosis: BRONCHITIS, ACUTE[ICD9: 466.0] Diagnosis: WHEEZING[ICD9: 786.07] Huong [facility] CPT-[facility]: 59521 03/03/2014 OFFICE/OUTPATIENT VISIT EST Diagnosis: BRONCHITIS, ACUTE[ICD9: 466.0] Diagnosis: WHEEZING[ICD9: 786.07] [facility] CPT-4: 42947 03/01/2014 ([id number]) OFFICE/OUTPATIENT VISIT EST Diagnosis: GERD[ICD9: 530.81] Diagnosis: ARTHRALGIA-MULTIPLE SITES[ICD9: 719.49] Diagnosis: LUMB/LUMBOSAC DISC DEGEN[ICD9: 722.52] Diagnosis: - I - FIBROMYALGIA[ICD9: 729.1] Belia Zacharyisabellaotoniel HSUBELIA BushraMayda [facility]LL[facility]ONIEL [facility] CPT-4: 22818 02/09/2014 ([id number]) OFFICE/OUTPATIENT VISIT EST Diagnosis: Peptic ulcer disease[ICD9: 533.90] Diagnosis: RESTLESS LEGS SYNDROME[ICD9: 333.94] Diagnosis: Neuropathy[ICD9: 355.9] Belia Zacharyisabellaotoniel BELIA BushraMayda [facility]LL[facility] OTONIEL [facility] CPT-4: 48701 12/23/2013 ([id number]) OFFICE/OUTPATIENT VISIT EST Diagnosis: URINARY TRACT INFECTION[ICD9: 599.0] Belia Zacharynilson HSUQUE CLAYTON BushraMayda [facility] CPT-[facility]: 43788 10/30/2013 ([id number]) OFFICE/OUTPATIENT VISIT EST Diagnosis: Flank pain[ICD9: 789.00] Belia Humphriesisabellaotoniel BELIA BushraMayda KIES[facility] CPT-4: 52117 10/21/2013 ([id number]) OFFICE/OUTPATIENT VISIT EST Diagnosis: INFLAMED SEBORR KERATOS[ICD9: 702.11] Diagnosis: Brachioradial pruritus[ICD9: 698.9] Diagnosis: ASTHMA NOS[ICD9: 493.90] Belia Zacharynilson BRUNSON BushraMayda KIESHA VIRGILIO [facility] CPT-4: 17295 10/05/2013 ([id number]) OFFICE/OUTPATIENT VISIT EST Diagnosis: HYPERTENSION[ICD9: 401.9] Diagnosis: - I - FIBROMYALGIA[ICD9: 729.1] Diagnosis: DIZZINESS/VERTIGO[ICD9: 780.4] Diagnosis: MIGRAINE NOS/NOT INTRCBL[ICD9: 346.90] Diagnosis: Diabetic peripheral neuropathy[ICD9: 250.60] Diagnosis: Flank pain[ICD9: 789.00] Belia BRUNSON BushraMayda K[facility] CPT-4: 20916 08/04/2013 ([id number]) OFFICE/OUTPATIENT VISIT EST Diagnosis: ALLERGIC RHINITIS[ICD9: 477.9] Belia Zacharynilson BRUNSON Bushra Mayda ANUSHKA [facility] CPT-4: 45999 07/13/2013 OFFICE/OUTPATIENT VISIT EST Diagnosis: URINARY TRACT INFECTION[ICD9: 599.0] Huong De LunaFidepool REID [facility] CPT-4: 18294 07/03/2013 OFFICE/OUTPATIENT VISIT EST Diagnosis: HYPERTENSION[ICD9: 401.9] Diagnosis: URINARY TRACT INFECTION[ICD9: 599.0] Diagnosis: BACKACHE[ICD9: 724.5] Diagnosis: URINARY INCONTINENCE[ICD9: 788.30] Huong De LunaKp ARACELISROBERTOKIMI MARIE BushraMayda [facility] CPT-4: 17446 05/27/2013 ([id number]) OFFICE/OUTPATIENT VISIT EST Diagnosis: Flank pain[ICD9: 789.00] Belia POOLE [facility] CPT-4: 54015 05/25/2013 ([id number]) OFFICE/OUTPATIENT VISIT EST Diagnosis: B-COMPLEX DEFIC NEC[ICD9: 266.2] Belia Zacharynilson BRUNSON BushraMayda [facility] CPT-4: 21007 05/04/2013 ([id number]) OFFICE/OUTPATIENT VISIT EST Diagnosis: ALLERGIC RHINITIS[ICD9: 477.9] Diagnosis: Vitamin B12 deficiency[ICD9: 266.2] Belia THOMPSON BushraMayda ANUSHKA [facility] CPT-4: 62338 04/17/2013 ([id number]) OFFICE/OUTPATIENT VISIT EST 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I[ICD9: 250.00] Diagnosis: URINARY TRACT INFECTION[ICD9: 599.0] Diagnosis: DIZZINESS/VERTIGO[ICD9: 780.4] Diagnosis: DIARRHEA[ICD9: 787.91] Belia Peguero [facility] CPT-4: 85506 04/06/2013 ([id number]) OFFICE/OUTPATIENT VISIT EST Diagnosis: URINARY TRACT INFECTION[ICD9: 599.0] Diagnosis: URINARY RETENTION[ICD9: 788.20] Belia BRUNSON Bush[facility]Mayda [facility] C[facility]: 52330 11/10/2012 ([id number]) OFFICE/OUTPATIENT VISIT EST Diagnosis: TACHYCARDIA[ICD9: 785.0] Diagnosis: SYNCOPE AND COLLAPSE[ICD9: 780.2] Diagnosis: CONSCIOUSNS ALTERAT NEC[ICD9: 780.09] Belia Smithotoniel MINAL REID [facility] CPT-4: 10158 09/02/2012 OFFICE/OUTPATIENT VISIT EST Diagnosis: TACHYCARDIA[ICD9: 785.0] Diagnosis: SYNCOPE AND COLLAPSE[ICD9: 780.2] Belia REID [facility] CPT-4: 39901 08/04/2012 ([id number]) OFFICE/OUTPATIENT VISIT EST Diagnosis: Loss of consciousness[ICD9: 780.09] Diagnosis: Tachycardia[ICD9: 785.0] Diagnosis: MALAISE AND FATIGUE[ICD9: 780.79] [facility]: 88715 07/21/2012 ([id number]) OFFICE/OUTPATIENT VISIT EST Diagnosis: BRONCHITIS, ACUTE[ICD9: 466.0] Diagnosis: ASTHMA NOS[ICD9: 493.90] Belia POOLE [facility] CPT-4: 55313 07/02/2012 ([id number]) OFFICE/OUTPATIENT VISIT EST Diagnosis: CEPHALGIA[ICD9: 784.0] Belia CORNELLLINE Yuridia Peguero [facility] CPT-4: 44110 06/25/2012 ([id number]) OFFICE/OUTPATIENT VISIT EST Diagnosis: GERD[ICD9: 530.81] Diagnosis: DIARRHEA[ICD9: 787.91] Diagnosis: URINARY TRACT INFECTION[ICD9: 599.0] Diagnosis: ASTHMA NOS[ICD9: 493.90] Diagnosis: ALLERGIC RHINITIS[ICD9: 477.9] Belia Humphriesisabellaotoniel CORNELLBELIA Bushra REID [facility] CPT-4: 67331 06/24/2012 ([id number]) OFFICE/OUTPATIENT VISIT EST Diagnosis: MIGRAINE NOS/NOT INTRCBL[ICD9: 346.90] Diagnosis: TREMOR NEC[ICD9: 333.1] Diagnosis: CHRONIC PAIN SYNDROME[ICD9: 338.4] Belia SALAZAR BushraMayda ANUSHKA [employer] [facility] CPT-4: 37928 05/20/2012 ([id number]) OFFICE/OUTPATIENT VISIT EST Diagnosis: DIZZINESS/VERTIGO[ICD9: 780.4] Diagnosis: PALPITATIONS[ICD9: 785.1] Diagnosis: TREMOR NEC[ICD9: 333.1] Diagnosis: ANXIETY STATE NOS[ICD9: 300.00] Diagnosis: POSTTRAUMATIC STRESS DISORDER[ICD9: 309.81] Belia Zacharynilson BRUNSON BushraMayda ANUSHKA [facility] CPT-4: 87574 05/08/2012 ([id number]) OFFICE/OUTPATIENT VISIT EST Diagnosis: MIGRAINE NOS/NOT INTRCBL[ICD9: 346.90] Diagnosis: FIBROMYALGIA[ICD9: 729.1] Diagnosis: SYNCOPE AND COLLAPSE[ICD9: 780.2] Diagnosis: Diabetic peripheral neuropathy[ICD9: 250.60] Belia Zacharynilson BELIA BushraMayda ANUSHKA [facility] CPT-4: 35948 04/22/2012 OFFICE/OUTPATIENT VISIT EST Diagnosis: ROTATOR CUFF DIS NEC[ICD9: 726.19] Diagnosis: JOINT PAIN-SHLDER[ICD9: 719.41] Diagnosis: DYSPEPSIA[ICD9: 536.8] Belia Zacharynilson BELIA BushraMayda RALF Peguero [employer] [facility] CPT-4: 75863 02/13/2012 ([id number]) OFFICE/OUTPATIENT VISIT EST Diagnosis: MIGRAINE NOS/NOT INTRCBL[ICD9: 346.90] Diagnosis: GERD[ICD9: 530.81] Diagnosis: DYSPEPSIA[ICD9: 536.8] Belia BRUNSON BushraMayda RALF Peguero [employer] [facility] CPT-4: 78336 01/28/2012 OFFICE/OUTPATIENT VISIT EST Diagnosis: CEPHALGIA[ICD9: 784.0] Diagnosis: MIGRAINE NOS/NOT INTRCBL[ICD9: 346.90] Diagnosis: GERD[ICD9: 530.81] Diagnosis: INSOMNIA NOS[ICD9: 780.52] Belia Shi RAND ALBERTO [employer] [facility] CPT-4: 63128 12/26/2011 ([id number]) OFFICE/OUTPATIENT VISIT EST Diagnosis: CEPHALGIA[ICD9: 784.0] Diagnosis: MIGRAINE NOS/NOT INTRCBL[ICD9: 346.90] Diagnosis: MALAISE AND FATIGUE[ICD9: 780.79] Diagnosis: FIBROMYALGIA[ICD9: 729.1] Diagnosis: ALLERGIC RHINITIS[ICD9: 477.9] Belia CORNELLLINE Bushra Mayda ANUSHKA [facility] CPT-4: 35422 11/14/2011 ([id number]) OFFICE/OUTPATIENT VISIT EST Diagnosis: MALAISE AND FATIGUE[ICD9: 780.79] Diagnosis: MUSCLE WEAKNESS-GENERAL[ICD9: 728.87] Diagnosis: MIGRAINE NOS/NOT INTRCBL[ICD9: 346.90] Diagnosis: JOINT PAIN-SHLDER[ICD9: 719.41] Belia Orenilson BRUNSON BushraMayda ANUSHKA [facility] CPT-4: 44747 09/12/2011 ([id number]) OFFICE/OUTPATIENT VISIT EST Diagnosis: CONCUSSION[ICD9: 850.9] Diagnosis: Ataxia[ICD9: 781.3] Diagnosis: DIZZINESS/VERTIGO[ICD9: 780.4] Belia Reid BELIA Bushra Mayda ANUSHKA [facility] CPT-4: 66036 08/15/2011 ([id number]) OFFICE/OUTPATIENT VISIT EST Diagnosis: THROMBOPHLEBITIS[ICD9: 451.9] Diagnosis: Subacromial bursitis[ICD9: 726.19] Diagnosis: ALLERGIC RHINITIS[ICD9: 477.9] Diagnosis: Lipoma[ICD9: 214.9] Belia Humphriesisabellaotoniel HSUBELIA BushraMayda ANUSHKA [facility] CPT-4: 10448 08/09/2011 ([id number]) OFFICE/OUTPATIENT VISIT EST Diagnosis: THROMBOPHLEBITIS[ICD9: 451.9] Diagnosis: Arm pain[ICD9: 729.5] Diagnosis: Clostridium difficile colitis[ICD9: 008.45] Diagnosis: URINARY TRACT INFECTION[ICD9: 599.0] Belia Zacharynilson ARNOLD BushraMayda ANUSHKA [facility] CPT-4: 46060 07/03/2011 ([id number]) OFFICE/OUTPATIENT VISIT EST Diagnosis: ARTHRALGIA-MULTIPLE SITES[ICD9: 719.49] Diagnosis: Muscle cramp[ICD9: 729.82] Diagnosis: INSOMNIA NOS[ICD9: 780.52] [facility] C[facility]: 65856 06/04/2011 OFFICE/OUTPATIENT VISIT EST Diagnosis: Headache[ICD9: 784.0] Diagnosis: Allergic rhinitis[ICD9: 477.9] [facility]: 68375 05/03/2011 OFFICE/OUTPATIENT VISIT EST Diagnosis: LUMB/LUMBOSAC DISC DEGEN[ICD9: 722.52] Diagnosis: MIGRAINE NOS/NOT INTRCBL[ICD9: 346.90] Diagnosis: CHRONIC PAIN SYNDROME[ICD9: 338.4] Diagnosis: RESTLESS LEGS SYNDROME[ICD9: 333.94] Belia Zacharynilson ARNOLD Yuridia [facility] CPT-4: 81523 04/05/2011 OFFICE/OUTPATIENT VISIT EST Diagnosis: MIGRAINE NOS/NOT INTRCBL[ICD9: 346.90] Diagnosis: GERD[ICD9: 530.81] Belia HSUQUELINE Bush[facility] CPT-4: 35837 03/08/2011 OFFICE/OUTPATIENT VISIT EST Diagnosis: URINARY TRACT INFECTION[ICD9: 599.0] Diagnosis: Vertigo[ICD9: 780.4] Diagnosis: GERD[ICD9: 530.81] Belia Zacharynilson BELIA BushraMayda [facility] CPT-4: 57396 01/24/2011 OFFICE/OUTPATIENT VISIT EST Diagnosis: Hypotension[ICD9: 458.9] Diagnosis: Syncopal episodes[ICD9: 780.2] Diagnosis: MIGRAINE NOS/NOT INTRCBL[ICD9: 346.90] Diagnosis: MALAISE AND FATIGUE[ICD9: 780.79] Belia Zacharynilson Paredes [facility] CPT-4: 86026 01/02/2011 OFFICE/OUTPATIENT VISIT EST Diagnosis: Tinea cruris[ICD9: 110.3] Diagnosis: Intertrigo[ICD9: 695.89] Diagnosis: MIGRAINE NOS/NOT INTRCBL[ICD9: 346.90] Belia COKER BushraMayda [facility] CPT-4: 02614 12/07/2010 OFFICE/OUTPATIENT VISIT EST Diagnosis: PALPITATIONS[ICD9: 785.1] Diagnosis: ANXIETY STATE NOS[ICD9: 300.00] Belia [facility] CPT-4: 04029 11/16/2010 OFFICE/OUTPATIENT VISIT EST Diagnosis: URINARY TRACT INFECTION[ICD9: 599.0] Diagnosis: MIGRAINE NOS/NOT INTRCBL[ICD9: 346.90] Iraida CASILLAS [facility] CPT-4: 08100 11/02/2010 OFFICE/OUTPATIENT VISIT EST Diagnosis: ALLERGIC RHINITIS[ICD9: 477.9] Diagnosis: ANXIETY STATE NOS[ICD9: 300.00] Belia Anushka [facility] CPT-4: 37121 10/18/2010 OFFICE/OUTPATIENT VISIT EST Belia [facility] CPT- 4: 91032 09/19/2010 OFFICE/OUTPATIENT VISIT EST Belia [facility] CPT- 4: 135[address] 09/06/2010 ([id number]) OFFICE/OUTPATIENT VISIT EST Belia Anushka [facility] CPT-4: 67151 08/10/2010 ([id number]) OFFICE/OUTPATIENT VISIT EST Belia [facility] CPT-4: 97501 05/11/2010 ([id number]) OFFICE/OUTPATIENT VISIT, EST Belia Anushka [facility] CPT-4: 03276 04/06/2010 ([id number]) OFFICE/OUTPATIENT VISIT, EST Belia Zacharyisabellaotoniel [facility]ACELIS [facility] CPT-4: 08558 02/09/2010 ([id number]) OFFICE/OUTPATIENT VISIT, EST Belia HSU [facility] CPT-4: 10062 01/05/2010 ([id number]) OFFICE/OUTPATIENT VISIT, EST Belia [facility]SU [facility] CPT-4: 16474 12/07/2009 ([id number]) OFFICE/OUTPATIENT VISIT, EST Belia HSU [facility] CPT-4: 02267 11/08/2009 ([id number]) OFFICE/OUTPATIENT VISIT, RIOS REID DO [employer] CPT-4: 69230 10/24/2009 ([id number]) OFFICE/OUTPATIENT VISIT, EST Belia REID DO [employer] CPT-4: 82786 07/25/2009 ([id number]) OFFICE/OUTPATIENT VISIT, RIOS REID DO [employer] CPT-4: 96194 05/26/2009 Plan of Care Planned Activity Notes Codes Status Date Visit Diagnosis Plan: Cephalgia Discussion: With recen t fall and head trauma and confusion will need CT of head ICD-9 : 784.0 ICD-10 : R51 09/02/2019 Visit Diagnosis Plan: Dizziness and giddiness Discussi on: Update lab--CBC, CMP, TSH, ESR, HbA1C BS has been high recently ICD-9 : 780.4 ICD-10 : R42 09/02/2019 Visit Diagnosis Plan: Edema Discussion: Go home and ta ke lasix and potassium for today and next 2-3 days ICD-9 : 782.3 ICD-10 : R60.9 09/02/2019 Visit Diagnosis Plan: Hyperglycemia Discussion: Update CMP, HbA1C ICD-9 : 790.29 ICD-10 : R73.9 09/02/2019 Care Plan: CT HEAD/BRAIN W/O DYE LOINC : 50526-8 Pending 09/02/2019 Visit Diagnosis Plan: Generalized pain Discussion: Hyp [...] ICD-9 : 728.87 ICD-10 : M62.81 08/25/2019 Appointment: Belia Reid WPtel: [phone] [id number] ACUTE ILLNESS 08/25/2019 Patient Education: meloxicam- [employer] C[employer] [id number] https://www.Optireno.SavingGlobal/samplemd/resources/getResource/61/in48j7v8-7dui-1767-h7 Completed 08/25/2019 Patient Education: baclofen- [employer] C[employer]on [id number] https://www.Optireno.SavingGlobal/Lottaymd/resources/getResource/61/b03q192q-5e2u-55d5-of Completed 08/25/2019 Visit Diagnosis Plan: Yawning Discussion: [...] new home sleep study on patient through [facility] to assess severity of symptoms, patient does wear her oxygen at night though. educated on importance of wearing oxygen at all times, even when in public. ICD-9 : 786.09 ICD-10 : R06.89 08/10/2019 Appointment: [facility] [facility] 08/10/2019 Visit Diagnosis Plan: Dyspnea [...] ICD-10 : K59.00 08/04/2019 Appointment: Pattie Sotomayor [address] [place] [address] ACUTE ILLNESS 08/04/2019 Visit Diagnosis Plan: Inspiratory stridor Discussion: Continue oxygen via NC at 2 L Continue ativan at QID Follow Up: 4 weeks ICD-9 : 786.1 ICD-10 : R06.1 07/06/2019 Visit Diagnosis Plan: Diarrhea Discussion: Restart Col estid at once daily ICD-9 : 787.91 ICD-10 : R19.7 07/06/2019 Appointment: Belia Reid WPtel: [phone] [id number] TELEMEDICINE 07/06/2019 Visit Diagnosis Plan: Left leg swelling Discussion: Ne [facility] LLE venous doppler--patient states is scheduled for [...] R06.00 06/24/2019 Appointment: Belia Reid WPtel: [phone] [facility] TELEMEDICINE 06/24/2019 Visit Diagnosis Plan: Acute bronchitis Discussion: Cov er with levaquin Increase SVNs with albuterol to QID Has oxygen using q HS routinely and prn To ER if oxygen levels drop or worsening respiratory symptoms ICD-9 : 466.0 ICD-10 : J20.9 06/16/2019 Visit Diagnosis Plan: Colitis Discussion: Levaquin/Fla gyl [place] Diet ICD-9 : 558.9 ICD-10 : K52.9 06/16/2019 Appointment: Belia Reid WPtel: [address] [place] [address] TELEMEDICINE 06/16/2019 Patient Education: Levaquin- [employer] Coupon [id number] https://www.Enviable Abode/Optireno/resources/getResource/61/81b64fqd-1js8-05z2-80 Completed 06/16/2019 Visit Diagnosis Plan: Diarrhea Discussion: Vancomycin for 10 days and notify if not improving or worsening BLAND diet Hydrate ICD-9 : 787.91 ICD-10 : R19.7 06/08/2019 Appointment: Belia Reid WPtel: [address] [place] [address] TELEMEDICINE 06/08/2019 Visit Diagnosis Plan: Acute febrile illness Discussion : Notify if worsens ICD-9 : 780.60 ICD-10 : R50.9 05/26/2019 Visit Diagnosis Plan: Colitis Discussion: Flagyl plus cipro to cover for both colitis and UTI Notify or to ER if worsening ICD-9 : 558.9 ICD-10 : K52.9 05/26/2019 Appointment: Bleia Reid WPtel: [address] [place] [address] TELEMEDICINE 05/26/2019 Appointment: Pattie Sotomayor [address] RESCHEDULED 05/18/2019 Visit Diagnosis Plan: Chronic obstructive pulmonary di sease, unspecified Discussion: Recommend pulmonary rehab Patient states she never went to pulmonary rehab due to cost as well as transportation issues Finish trelagy Stop singulair Decrease hydroxyzine to 25mg po q HS Fwup [address] scan of Chest results discussed ICD-9 : 496 ICD-10 : J44.9 05/13/2019 Appointment: Belia Reid WPtel: [address] [place] [address] Hospital Follow Up 05/13/2019 Visit Diagnosis Plan: COUGH Discussion: Check CT scan of chest ICD-9 : 786.2 ICD-10 : R05 05/06/2019 Visit Diagnosis Plan: Stridor Discussion: Add Trelagy 1 p daily Add Singulair May need to see new power wheelchair mechanic ICD-9 : 786.1 ICD-10 : R06.1 05/06/2019 Appointment: Belia Reid WPtel: [address] [place] [address] FOLLOW UP 05/06/2019 Patient Education: Singulair- [employer] Coupon [id number] https://www.Enviable [employer]ode/Optireno/resources/getResource/61/2584511n-s29q-38b9-jz Completed 05/06/2019 Appointment: Belia Reid WPtel: [address] [place] [address] RESCHEDULED 04/30/2019 Visit Diagnosis Plan: Muscle, jerky [...] : R06.1 04/29/2019 Appointment: Belia Reid WPtel: [address] [place] [address] Hospital Follow Up 04/29/2019 Patient Education: Valium- [employer] Coupon [id number] https://www.Enviable [employer]ode/Optireno/resources/getResource/61/a82851zr-549u-4v98-8v Completed 04/29/2019 Visit Diagnosis Plan: Weight gain [...] ICD-10 : R10.9 04/16/2019 Appointment: Pattie Sotomayor [address] [place], [place] [id number] ACUTE ILLNESS 04/16/2019 Patient Education: cyclobenzaprine- [employer] Coupon [id number] https://www.Optireno.SavingGlobal/samplemd/resources/getResource/61/dr47o3w4-2748-6733-o1 Completed 04/16/2019 Visit Diagnosis Plan: Generalized pruritus Discussion: Hydroxyzine 25mg po TID for itching and anxiety ICD-9 : 698.9 ICD-10 : L29.9 04/08/2019 Visit Diagnosis Plan: Migraine, unspecif ied, not intractable, without status migrainosus Discussion: Increase gabapentin to 600mg po BID ICD-9 : 346.90 ICD-10 : G43.909 04/08/2019 Appointment: Belia Reid WPtel: [address] [place] [address] ACUTE ILLNESS 04/08/2019 Visit Diagnosis Plan: Cervicalgia [...] M75.52 01/22/2019 Appointment: Belia Reid WPtel: [facility] [address] Hospital Follow Up 01/22/2019 Visit Diagnosis Plan: Abdominal pain Discussion: urine culture sent to assess for any infection. rocephin given in office to cover for pyelonephritis. instructed to push fluids. call office with any new or worsening symptoms. ICD-9 : 789.00 ICD-10 : R10.9 01/07/2019 Appointment: Pattie Sotomayor [address] [place] [address] ACUTE ILLNESS 01/07/2019 Visit Diagnosis Plan: Low back pain Discussion: Stat C T of abdomen/pelvis now ICD-9 : 724.2 ICD-10 : M54.5 12/24/2018 Appointment: Belia Reid WPtel: [address] [place] [address] US FOLLOW UP 12/24/2018 Visit Diagnosis Plan: Fibromyalgia [...] : G43.909 11/20/2018 Appointment: Belia Reid WPtel: [address] [place] [address] ACUTE ILLNESS 11/20/2018 Patient Education: baclofen- [employer] Coupon [id number] https://www.Optireno.com/samplemd/resources/getResource/61/1g5362d7-qs5x-22nu-67 Completed 11/20/2018 Visit Diagnosis Plan: Acute sinusitis, [...] or worsening. instructed to follow up with urban planner since headaches are occurring more frequently to make sure vision is not the cause. ICD-9 : 346.91 ICD-10 : G43.919 11/04/2018 Appointment: Pattie Sotomayor 504 [facility] ACUTE ILLNESS 11/04/2018 Appointment: Belia Reid WPtel: 2305 [facility] US CANCELED 09/24/2018 Visit Diagnosis Plan: [...] I10 09/18/2018 Visit Diagnosis Plan: Encounter for [facility] adult medical examination without abnormal findings Discussion: Mediterranean diet Combinati on of cardio and weight bearing exercise ICD-9 : V70.9 ICD-10 : Z00.00 09/18/2018 Visit Diagnosis Plan: Type 2 diabetes mellitus with hy perglycemia Discussion: Lab discussed Accuchecks daily Continue current meds Check CMP and HbA1C in 3mos then fwup ICD-9 : 250.02 ICD-10 : E11.65 09/18/2018 Appointment: Belia Reid WPtel: 2[address] [facility] Annual Well Visit 09/18/2018 Patient Education: gabapentin- OptimizeRX Coupon [id number] https://www.Optireno.com/samplemd/resources/getResource/61/0f91yr10-1gc0-1ybu-r0 Completed 09/18/2018 Visit Diagnosis Plan: Pain in [...] ICD-10 : M54.89 09/08/2018 Appointment: Pattie Sotomayor [address] [place], [place] [id number] ACUTE ILLNESS 09/08/2018 Patient Education: prednisone- OptimizeRX Coupon [id number] https://www.Enviable Abode/samplemd/resources/getResource/61/3h3qx83o-2033-38i2-ud Completed 09/08/2018 Visit Diagnosis Plan: DM W/O COMPLICATION TYPE [...] ICD-9 : 308.9 ICD-10 : F43.0 08/20/2018 Appointment: Belia Reid WPtel: [facility]6 [facility]6[address] ACUTE ILLNESS 08/20/2018 Patient Education: Lexapro- OptimizeRX Coupon [id number] Completed 08/20/2018 Patient Education: hydroxyzine HCl- OptimizeRX Coupon [id number] Completed 08/20/2018 Care Plan: MAMMOGRAM SCREENING LOINC : 2 6347-5 Pending 08/20/2018 Visit Diagnosis Plan: Paroxysmal atrial fibrillation D iscussion: Discuss eliquis need with cardiology at [facility] due to cost ICD-9 : 427.31 ICD-10 : I48.0 06/19/2018 Visit Diagnosis Plan: Hypotension due to drugs Discuss ion: Discussed decreasing cardizem dose due to low BP and edema but sees cardiology next week Follow Up: 1 months ICD-9 : 458.8 ICD-10 : I95.2 06/19/2018 Appointment: Belia Reidtel: [address] [place], [place] [phone] [place] FOLLOW UP 06/19/2018 Visit Diagnosis Plan: [...] : I10 06/09/2018 Appointment: Belia Reid WPtel: [facility]6676[facility] FOLLOW UP 06/09/2018 Care Plan: CHEST X-RAY 2VW FRONTAL&LATL LOINC : 84167-1 Pending 05/26/2018 Visit Diagnosis Plan: Weakness Discussion: Has home he alth and home PT ICD-9 : 780.79 ICD-10 : R53.1 05/21/2018 Visit Diagnosis Plan: Stridor Discussion: Resolved [...] 427.89 ICD-10 : I47.1 05/21/2018 Appointment: Belia Reidtel: [facility] Hospital Follow Up 05/21/2018 Visit Diagnosis Plan: Cervical disc diso rder with radiculopathy, unspecified cervical region Discussion: Scheduled for surgery on 06/02 10/[address] Faulkner ICD-9 : 722.0 ICD-10 : M50.10 04/16/2018 Appointment: Belia Reid WPtel: [address] [place] [address] Hospital Follow Up 04/16/2018 Visit Diagnosis Plan: [...] ICD-10 : G43.919 04/01/2018 Appointment: Pattie Sotomayor [address] [place] [address] ACUTE ILLNESS 04/01/2018 Appointment: Belai Reid WPtel: [address] [place] [address] 03/17/2018 Visit Diagnosis Plan: Erythema intertrigo Discussio: [...] : J44.1 03/06/2018 Appointment: Belia Reid WPtel: [address] [place] [address] Hospital Follow Up 03/06/2018 Visit Diagnosis Plan: Cervicalgia Discussion: spoke wi th dr. reid about patient. increased gabapentin to bid and started on celebrex bid. tramadrol rx written out to take prn. keep scheduled appt next week for myelogram. ICD-9 : 723.1 ICD-10 : M54.2 02/05/2018 Appointment: Pattie Sotomayor [address] [place] [address] ACUTE ILLNESS 02/05/2018 Care Plan: X-RAY EXAM NECK SPINE 4/5VWS cervical LOINC : 36338-7 Pending 01/21/2018 Visit Diagnosis Plan: Cervicalgia Discussion: [...] ICD-10 : B37.2 01/20/2018 Appointment: Pattie Sotomayor [address] [place] [address] ACUTE ILLNESS 01/20/2018 Visit Diagnosis Plan: Pain in thoracic spine Discussio n: Proceed with CT scan of thoracic spine Will likely need PT ICD-9 : 724.1 ICD-10 : M54.6 12/25/2017 Appointment: Belia Reid WPtel: [address] [place] [address] FOLLOW UP 12/25/2017 Care Plan: CT THORAX W/O DYE LOINC : 473 66-0 Pending 12/25/2017 Visit Diagnosis Plan: Pain in thoracic spine Discussio n: Stretches Alternated heat/ice Topical aspercreme with lidocaine Flexeril Recheck 1 week Flu and Pneumovax given ICD-9 : 724.1 ICD-10 : M54.6 12/17/2017 Appointment: Belia Reid WPtel: [facility] [address] ACUTE ILLNESS 12/17/2017 Patient Education: Patient [...] J44.1 10/30/2017 Appointment: Belia Reid WPtel: [address] [place], [place] [phone] FOLLOW UP 10/30/2017 Patient Education: Patient Medication Summary Completed 10/30/2017 Visit Diagnosis Plan: Chronic obstructiv e pulmonary disease with acute lower respiratory infection Discussion: Continue SVNs with albuterol q4hrs Add Trelagy 1 inhalation daily Finish steroids Increase water intake Follow Up: 1 weeks ICD-9 : 496 ICD-10 : J44.0 10/23/2017 Appointment: Belia Reid WPtel: [address] [place], [place] [phone] WORK IN 10/23/2017 Patient Education: Patient Medication Summary Completed 10/23/2017 Appointment: Belia Reid WPtel: [address] [place], [place] [phone] NO SHOW 10/16/2017 Visit Diagnosis Plan: Confusional [...] E11.65 09/17/2017 Appointment: Belia Reid WPtel: [address] [place], [place] [phone] Annual Well Visit 09/17/2017 Patient Education: Patient Medication Summary Completed 09/17/2017 Appointment: Belia Reid WPtel: [address] [place], [place] [phone] US INJECTION 08/26/2017 Patient Education: Patient Medication Summary Completed 08/26/2017 Appointment: Belia Reid WPtel: [phone] RhaizdzdaSK[address] US CANCELED 07/31/2017 Visit Diagnosis Plan: Encounter [...] ICD-10 : J20.9 07/19/2017 Appointment: Pattie Sotomayor [address] [place], [place] [id number] ACUTE ILLNESS 07/19/2017 Patient Education: Patient Medication Summary Completed 07/19/2017 Care Plan: MAMMOGRAM SCREENING LOINC : 2 6347-5 Pending 07/19/2017 Patient Education: Patient Medication Summary Completed 06/05/2017 Care Plan: LIPID PANEL LOINC : 15364-1 Pending 06/05/2017 Care Plan: A1C HPLC LOINC : 44940-8 Pending 06/05/2017 Visit Diagnosis Plan: Rash and [...] ICD-10 : R21 05/29/2017 Appointment: Pattie Sotomayor [address] [place] [address] FOLLOW UP 05/29/2017 Patient Education: Patient Medication Summary Completed 05/29/2017 Visit Diagnosis Plan: Tinea corporis Discussion: Diflu can and topical nystatin Follow Up: 2 weeks ICD-9 : 110.5 ICD-10 : B35.4 05/07/2017 Visit Diagnosis Plan: Diarrhea, unspecified Discussion : Diflucan Cholestyramine Recheck 2weeks ICD-9 : 787.91 ICD-10 : R19.7 05/07/2017 Appointment: Belia Reid WPtel: [address] [place] [address] US FOLLOW UP 05/07/2017 Patient Education: Patient Medication Summary Completed 05/07/2017 Appointment: Belia Reidtel: [address] [place] [address] US RESCHEDULED 04/30/2017 Visit Diagnosis Plan: Chronic obstructiv e pulmonary disease with (acute) exacerbation Discussion: Finish prednisone Continue S VNS with albuterol ICD-9 : 491.21 ICD-10 : J44.1 03/18/2017 Visit Diagnosis Plan: Stridor Discussion: Increase Ati van 0.5mg po to TID routinely for next week then can go back to prn ICD-9 : 786.1 ICD-10 : R06.1 03/18/2017 Appointment: Belia Reid WPtel: [address] [place], [place] [address] ER Follow UP 03/18/2017 Patient Education: Patient [...] E11.65 02/27/2017 Appointment: Belia Reid WPtel: [facility] [facility] FOLLOW UP 02/27/2017 Patient Education: Patient [...] ICD-10 : E11.65 02/22/2017 Appointment: Pattie Sotomayor [facility] [employer] [id number] US ACUTE ILLNESS 02/22/2017 Patient Education: Patient Medication [...] Plan: Pneumonia, unspecified organism Discussion: Maria Antonia body then do doxycycline for 2 weeks then will plan on repeat CT scan of lungs in 3mos ICD-9 : 486 ICD-10 : J18.9 01/23/2017 Appointment: Belia Reid WPtel: [facility] [facility] Follow UP 01/23/2017 Patient Education: Patient Medication Summary Completed 01/23/2017 Appointment: Pattie Sotomayor [facility] [employer] [id number] CANCELED 01/17/2017 Appointment: Pattie Sotomayor [facility] [employer] [id number] Annual Well Visit 01/14/2017 Visit Diagnosis Plan: Type 2 diabetes mellitus with hy perglycemia Discussion: Check CMP, HbA1C Flu shot and Prevnar 13 given Follow Up: 3 months ICD-9 : 250.02 ICD-10 : E11.65 12/20/2016 Visit Diagnosis Plan: Localized edema Discussion: Low Na diet Compression socks/Elevate feet ICD-9 : 782.3 ICD-10 : R60.0 12/20/2016 Appointment: Belia Reid WPtel: [address] [place], [place] [phone] FOLLOW UP 12/20/2016 Patient Education: Patient Medication Summary Completed 12/20/2016 Patient Education: Patient Medication Summary Completed 10/10/2016 Visit Plan: Xrays of cervical, thoracic and lumbar spine at [facility] for Mobic (stop NSAIDS except Tylenol) and Flexeril UA sent for C&S Using SVN Call in 2-3 days if pain not improved or any worsening 10/08/2016 Appointment: Celeste Ferreira WPtel: [address] [place] [address] ACUTE ILLNESS 10/08/2016 Patient Education: Patient Medication [...] : E11.65 09/19/2016 Appointment: Belia Reid WPtel: [address] [place], [place] [phone] 09/18 confirmed`sl FOLLOW UP 09/19/2016 Patient Education: [...] R10.84 08/20/2016 Appointment: Belia Reid WPtel: [address] [place], [place] [address] 08/16 confirmed~ FOLLOW UP 08/20/2016 Patient Education: Patient Medication [...] : J44.9 06/19/2016 Appointment: Belia Reid WPtel: [address] [place], [place] [phone] 06/18 confirmed ~ Hospital Follow Up 06/19/2016 [...] : Z87.440 06/04/2016 Appointment: Belia Reid WPtel: [address] [place], [place] [phone] 06/01 confirmed~sl FOLLOW UP 06/04/2016 Patient Education: [...] : R06.1 05/02/2016 Appointment: Belia Reid WPtel: [address] [place], [place] [phone] 05/01 confirmed [facility] Follow Up 05/02/2016 Patient Education: Patient [...] : N39.0 04/03/2016 Appointment: Belia Reid WPtel: [address] [place], [place] [phone] 04/02 [facility] Follow Up 04/03/2016 Patient Education: Patient Medication Summary Completed 04/03/2016 Visit Plan: Lungs are clear Her symptoms and exam are all upper airway restriction/constriction Can try supportive care Rx as above Follow up PRN 02/29/2016 Appointment: Lidia Hwang [address] [place], [place] [phone] ACUTE ILLNESS 02/29/2016 Patient Education: Patient Medication Summary Completed 02/29/2016 Visit Plan: Toradol/Phenergan today for Migraine Change to Clindamycin to cover lactobacillus for UTI Cover with flagyl due to hx of C. Diff 02/02/2016 Appointment: Belia Reid WPtel: [address] [place], [place] [phone] 01/31 confirmed`sl ACUTE ILLNESS 02/02/2016 Patient Education: Patient Medication Summary Completed 02/02/2016 Visit Plan: Increase neurontin to 300mg q AM and 600mg q PM Discussed neurology re-evaluation Flu shot given Need to check on Pneumonia shot Rx written out for albuterol 01/05/2016 Appointment: Belia Reid WPtel: [address] [place], [place] [phone] 01/03 confirmed ~sl Annual Well Visit 01/05/2016 Patient Education: Patient Medication Summary Completed 01/05/2016 Visit Plan: Cipro Culture urine hydrate Flexeril refilled Alternate heat and ice for back Increase gabapentin to 300mg po BID Notify if worsens 12/05/2015 Appointment: Belia Reid WPtel: [address] [place], [place] [phone] 11/30 confirmed~sl ACUTE ILLNESS 12/05/2015 Patient Education: Patient Medication Summary Completed 12/05/2015 Patient Education: Patient Medication Summary Completed 10/27/2015 Care Plan: COMPREHEN METABOLIC PANEL [place] : 37427-6 Pending 10/27/2015 Care Plan: A1C HPLC LOINC : 14798-1 Pending 10/27/2015 Visit Plan: Lungs are CTA today and is f eeling improved overall Finish meds as ordered Continue inhalers and neb treatments Discussed migraine treatment options She does not feel she needs anything additional added today Refill of Januvia sent since no samples are available today 10/26/2015 Appointment: [facility] [facility] Follow Up 10/26/2015 Appointment: Lidia Hwang 2305 [facility]6676[facility] [...] up if worsening 10/05/2015 Appointment: Jaiden Lidia 2305 [facility] ER Follow UP 10/05/2015 Patient Education: Patient Medication Summary Completed 10/05/2015 Visit Plan: Proceed with PT for document ation of ROM and strength of all extremities Proceed with Power Mobility Device Trial of neurontin 300mg q HS--lyrica helped but patient unable to afford Recheck 1month 09/15/2015 Appointment: Belia Reid WPtel: [address] [place], [place] [phone] 09/13 confirmed~sl SPECIAL 09/15/2015 Patient Education: Patient Medication Summary Completed 09/15/2015 Visit Plan: Fille out Loan Discharge Pap erwork for total and permanent disability 08/25/2015 Patient Education: Patient Medication Summary Completed 08/25/2015 Visit Plan: Discussed with Dr Anushka Haywood at CT of head Will get last date of carotid doppler from her gis software developer and update if needed 08/24/2015 Appointment: JaidenLidia [address] [place], [place] [phone] 08/22 confirmed~sl ACUTE ILLNESS 08/24/2015 Patient Education: Patient Medication Summary Completed 08/24/2015 Patient Education: Patient Medication Summary Completed 08/24/2015 Care Plan: US EXAM OF HEAD AND NECK carotid Ultrasound LOIN C : 97670-4 Pending 08/24/2015 Visit Plan: Long discussion about diet A ccuchecks daily Check HbA1C, CMP Change requip to mirapex 07/05/2015 Appointment: Belia Reid WPtel: [address] [place], [place] [phone] 07/03 confirmed ~sl FOLLOW UP 07/05/2015 Patient Education: Patient Medication Summary Completed 07/05/2015 Visit Plan: Add Breo ellipta 100 1 p BID Continue SVNs with duoneb QID 06/06/2015 Appointment: Belia Reid WPtel: [address] [place], [place] [phone] Patient is calling for a ride, then retu rning our call.-sp 06/01 called and patient stated she will know saturday if she can get a ride~sl 06/05 [facility] Follow Up 06/06/2015 Patient Education: Patient [...] not improving 05/23/2015 Appointment: Huong Osborne WPtel: [address] [place], [place] [phone] ACUTE ILLNESS 05/23/2015 Appointment: Lidia Hwang [address] [place], [place] [phone] ER Follow UP 05/23/2015 Patient Education: Patient Medication Summary Completed 05/23/2015 Visit Plan: Check pancreatic enzymes and US of pancreas as patient can't understand why she has diabetes since has no family history Discussed weight, diet, exercise all play an important role in diabetes and are risk factors as well Continue Januvia and accuchecks daily 05/05/2015 Appointment: Belia Reid WPtel: [address] [place], [place] [phone] US FOLLOW UP 05/05/2015 Patient Education: Patient Medication Summary Completed 05/05/2015 Care Plan: US EXAM ABDOM COMPLETE LOINC : 58696-5 Ordered 05/05/2015 Visit Plan: Start Januvia 100mg daily [place] with diflucan and culture urine Accuchecks daily alternating times Recheck 6weeks 03/30/2015 Appointment: Belia Reid WPtel: [facility] [place] 03/29 confirmed~lb FOLLOW UP 03/30/2015 Patient Education: Patient Medication Summary Completed 03/30/2015 Appointment: Belia Reid WPtel: [phone] [place], [place] [phone] [place] 03/01 needs reschedule due to payment and insurance ~ FOLLOW UP 03/02/2015 Visit Plan: Patient was just in ER last night so has not filled scripts yet Start Carafate and Flagyl and Cipro Add Hyophen 1 po BID Recheck 1mo 02/03/2015 Appointment: Belia Reid WPtel: [address] [place] [address] 02/02lm ~sl...02/03/15 appt confirmed cn ACUTE I LLNESS 02/03/2015 Patient Education: Patient Medication Summary Completed 02/03/2015 Visit Plan: Warm soaks to vaginal area K elex and Diflucan and observe Zofran to use prn 12/29/2014 Appointment: Belia Reid WPtel: [address] [place] [address] 12/28 Confirmed ~sl ACUTE ILLNESS 12/29/2014 Patient Education: Patient Medication Summary Completed 12/29/2014 Appointment: Huong Osborne WPtel: [address] [place] [address] FOLLOW UP 09/24/2014 Appointment: Belia Reid WPtel: [address] [place] [address] 09/15 confirmed -mf FOLLOW UP 09/16/2014 Visit Plan: Increase requip to 2mg po BI D Increase lyrica to 225mg total a day by adding an extra 75mg in AM Recheck in 2weeks Continue to patch left eye while sleeping 09/02/2014 Appointment: Belia Reid WPtel: [address] [place] [address] 09/01 appt confirmed cn Hospital Follow Up 09/02 Patient Education: Patient Medication Summary Completed 09/02/2014 Visit Plan: To [facility] for observat ion to R/O CVA 08/25/2014 Appointment: Huong Osborne WPtel: [address] [place] [address] ACUTE ILLNESS 08/25/2014 Patient Education: Patient Medication Summary Completed 08/25/2014 Referral: Aaron Jonas WPtel: [facility] [address] [facility], [facility] 1 [id number] [place] In [place] location Initiated 04/26/2014 Referral: Brian Srinivasan WPtel: [address] [facility] [facility] [id number] [place] Referral Initiated 04/20/2014 Appointment: Belia Reid WPtel: [address] [place], [place] [phone] ER Follow UP 04/01/2014 Patient Education: Patient Medication Summary Completed 04/01/2014 Care Plan: MYELOGRAPHY NECK SPINE LOINC : 94404-9 Ordered 04/01/2014 Visit Plan: Continue Symbicort 160 at 2p BID Continue SVNs with duoneb at least QID Finish Levaquin Recheck 1mo on lyrica 03/16/2014 Appointment: Belia Reid WPtel: [address] [place], [place] [phone] 03/15 voicemail FOLLOW UP 03/16/2014 Patient Education: Patient Medication Summary Completed 03/16/2014 Visit Plan: Restart SVNs with duoneb QID Repeat prednisone Levaquin Continue symbicort Keep lyrica at same dose Recheck 1week 03/09/2014 Appointment: Belia Reid WPtel: [address] [place], [place] [phone] FOLLOW UP 03/09/2014 Patient Education: Patient Medication Summary Completed 03/09/2014 Appointment: Belia Reid WPtel: [address] [place], [place] [phone] 03/03 showed up 15 minutes late for appt -- put her on Huong's side for 10:45am FORGIVEN PER DR FOLLOW UP 03/03/2014 Appointment: Huong Osborne WPtel: [address] [place], [place] [phone] [place] FOLLOW UP 03/03/2014 Patient Education: Patient Medication Summary Completed 03/03/2014 Appointment: Huong Osborne WPtel: [address] [place], [place] [phone] ER Follow UP 03/01/2014 Patient Education: Patient Medication Summary Completed 03/01/2014 Visit Plan: Add carafate for this next m onth Increase lyrica to 150mg q HS 02/09/2014 Appointment: Belia Reid WPtel: [address] [place], [place] [phone] Hospital Follow Up 02/09/2014 Patient Education: Patient Medication Summary Completed 02/09/2014 Visit Plan: Increase omeprazole back to 40mg po BID Use requip in AM and add lyrica 75mg q HS Recheck 1mo 12/23/2013 Appointment: Belia Reid WPtel: [address] [place], [place] [phone] FOLLOW UP 12/23/2013 Patient Education: Patient Medication Summary Completed 12/23/2013 Patient Education: Patient Medication Summary Completed 12/04/2013 Appointment: Belia Reid WPtel: [address] [place], [place] [phone] [place] [address] 10/30/2013 Patient Education: Patient Medication Summary Completed 10/30/2013 Appointment: Belia Reid WPtel: [address] [place], [place] [phone] [facility] 10/21/2013 Patient Education: Patient Medication Summary Completed 10/21/2013 Visit Plan: Cryotherapy as above TAC and hydroxyzine to use prn to itching spots and itching SKs Add Advair HFA 115/21 1 p BID 10/05/2013 Appointment: Belia Reid WPtel: [address] [place], [place] [phone] 10/01 pt called and confirmed ACUTE ILLNESS Patient Education: Patient Medication Summary Completed 10/05/2013 Appointment: Belia Reid WPtel: [address] [place], [place] [phone] will pay copay and part of past balance FOLLOW U P 08/04/2013 Patient Education: Patient Medication Summary Completed 08/04/2013 Appointment: Belia Reid WPtel: [address] [place], [place] [phone] [place] INJECTION 07/13/2013 Patient Education: Patient Medication Summary Completed 07/13/2013 Appointment: Huong Osborne WPtel: [address] [place], [place] [phone] ACUTE ILLNESS 07/03/2013 Patient Education: Patient Medication Summary Completed 07/03/2013 Visit Plan: Cipro and culture urine 05/27/2013 Appointment: Huong Osborne WPtel: [address] [place], [place] [phone] 05/26 confirmed appt and notified that balance and copy clerk y is due at appt time FOLLOW UP 05/27/2013 Patient Education: Patient Medication Summary Completed 05/27/2013 Appointment: Belia Reid WPtel: [address] [place], [place] [phone] [place] UA 05/25/2013 Patient Education: Patient Medication Summary Completed 05/25/2013 Appointment: Belia Reid WPtel: [address] [place], [place] [phone] [place] INJECTION 05/04/2013 Patient Education: Patient Medication Summary Completed 05/04/2013 Appointment: Belia Reid WPtel: [address] [place], [place] [phone] [place] INJECTION 04/17/2013 Patient Education: Patient Medication Summary Completed 04/17/2013 Appointment: Belia Reid WPtel: [address] [place], [place] [phone] [place] INJECTION 04/15/2013 Appointment: Belia Reid WPtel: [address] [place], [place] [phone] [place] 04/02 vm FOLLOW UP 04/06/2013 Patient Education: Patient Medication Summary Completed 04/06/2013 Visit Plan: Obtain lab results including UA from [facility] 11/10/2012 Appointment: Belia Reidtel: [address] [place] [address] ER Follow UP 11/10/2012 Patient Education: Patient Medication Summary Completed 11/10/2012 Appointment: Belia Reid WPtel: [address] [place] [address] 10/30/12 patient canceled appt due to fin ances. Offered to work something out, patient declined-LB FOLLOW UP 11/05/2012 Visit Plan: Continue Bystolic at current dose Pt has fwup with Neurology on September 16 09/02/2012 Appointment: Belia Reid WPtel: [address] [place] [address] FOLLOW UP 09/02/2012 Patient Education: Patient Medication Summary Completed 09/02/2012 Visit Plan: Continue bystolic at 5mg chris ly Sees Neurology tomorrow Use oxygen at bedtime 08/04/2012 Appointment: Belia Reid WPtel: [address] [place] [address] FOLLOW UP 08/04/2012 Patient Education: Patient Medication Summary Completed 08/04/2012 Appointment: Belia Reidtel: [address] [place] [address] Hospital fwup for 07/21/12. merged appointments FOLLOW UP 07/24/2012 Visit Plan: Start Bystolic 5mg daily for tachycardia Fwup with neurology for further workup Overnight O2 sat 07/21/2012 Appointment: Belia Reid WPtel: [address] [place] [address] Hospital Follow Up 07/21/2012 Patient Education: Patient Medication Summary Completed 07/21/2012 Visit Plan: SVN with Albuterol QID Add A velox 400mg daily Notify if worsens or persists 07/02/2012 Appointment: Belia Reid WPtel: [address] [place], [place] [phone] ACUTE ILLNESS 07/02/2012 Patient Education: Patient Medication Summary Completed 07/02/2012 Appointment: Belia Reidtel: [address] [place], [place] [phone] [place] INJECTION 06/25/2012 Patient Education: Patient Medication Summary Completed 06/25/2012 Appointment: Belia Reid WPtel: [address] [place] [address] FOLLOW UP 06/24/2012 Patient Education: Patient Medication Summary Completed 06/24/2012 Appointment: Belia Reid WPtel: [address] [place] [address] 05/19 [facility] FOLLOW UP 05/20/2012 Patient Education: Patient [...] po TID 05/08/2012 Appointment: Belia Reid WPtel: [address] [place] [address] ACUTE ILLNESS 05/08/2012 Patient Education: Patient Medication Summary Completed 05/08/2012 Visit Plan: Continue current meds Contin ue lower dose on pain meds and Diazepam Still waiting on paperwork for botox for Migraines Will restart Neurontin at 600mg po q HS Pt going to stop Depakote due to can't afford 04/22/2012 Appointment: Belia Reidtel: [address] [place] [address] 04/21 Hospital Follow Up 04/22/2012 Patient Education: Patient Medication Summary Completed 04/22/2012 Visit Plan: Injection to shoulder as abo ve Continue current meds Has appointment with neurology on HAs in 02/13/2012 Appointment: Belia Reid WPtel: [address] [place], [place] [phone] Pt does not have $10 copay at [facility] t time - will bring it in next week. Kianna iqbal'ed this. - [place] FOLLOW UP 02/13/2012 Patient Education: Patient Medication Summary Completed 02/13/2012 Visit Plan: Proceed with headache specia list Change nexium to Protonix Phenergan to use prn Sumatriptan to use prn Pt still on Inderal 01/28/2012 Appointment: Belia Reid WPtel: [address] [place], [place] [phone] ER Follow UP 01/28/2012 Patient Education: [...] for sleep 12/26/2011 Appointment: Belia Reid WPtel: [address] [place] [address] 12/24- appt. confirmed FOLLOW UP 2 Patient Education: Patient Medication Summary Completed 12/26/2011 Appointment: Belia Reid WPtel: [address] [place], [place] [phone] [place] FOLLOW UP 11/14/2011 Patient Education: Patient Medication Summary Completed 11/14/2011 Appointment: Belia Reid WPtel: [address] [place], [place] [phone] [place] FOLLOW UP 09/12/2011 Patient Education: Patient Medication Summary Completed 09/12/2011 Visit Plan: Supportive care Decrease Liseth catalino to 50mg q HS Decrease AM dose of Valium to 5mg q HS Use Endocet sparingly 08/15/2011 Appointment: Belia Reid WPtel: [address] [place], [place] [phone] ER Follow UP 08/15/2011 Patient Education: Patient Medication Summary Completed 08/15/2011 Appointment: Belia Reid WPtel: [address] [place], [place] [phone] [place] Spoke directly to patient yesterday and confirmed the appoin tment. cn ACUTE ILLNESS 08/09/2011 Patient Education: Patient Medication Summary Completed 08/09/2011 Appointment: Belia Reid WPtel: [address] [place], [place] [phone] Hospital Follow Up 07/03/2011 Patient Education: Patient Medication Summary Completed 07/03/2011 Appointment: Belia Reid WPtel: [address] [place], [place] [phone] [place] FOLLOW UP 06/04/2011 Patient Education: Patient Medication Summary Completed 06/04/2011 Visit Plan: Pt. wants "allergy shot" but in fact wants steroid shot. Will take a break from "generic Zyrtec they are getting from [facility]" and try Singulair for 2 weeks. 05/03/2011 Appointment: Iraida Jones WPtel: [address] [place] [address] ACUTE ILLNESS 05/03/2011 Patient Education: Patient Medication Summary Completed 05/03/2011 Visit Plan: Neurontin 400mg q HS for 1we ek then 800mg q HS Decrease requip to 1mg q HS for 2wks then stop Fwup 2mos 04/05/2011 Appointment: Belia Reid WPtel: [address] [place], [place] [phone] [place] FOLLOW UP 04/05/2011 Patient Education: Patient Medication Summary Completed 04/05/2011 Visit Plan: Trial of neurontin in 2wks C ontinue current meds for stomach Pt has procedure with Dr. Ortiz next week for stone removal 03/08/2011 Appointment: Belia Reid WPtel: [address] Follow Up 03/08/2011 Patient Education: Patient Medication Summary Completed 03/08/2011 Appointment: Belia Reid WPtel: [address] [place] [address] FOLLOW UP 02/19/2011 Visit Plan: reports increased [...] with Flagyl 01/24/2011 Appointment: Iraida Jones WPtel: [address] [place] [address] ACUTE ILLNESS 01/24/2011 Patient Education: Patient Medication Summary Completed 01/24/2011 Appointment: Belia Reid WPtel: [address] [place] [address] FOLLOW UP 01/02/2011 Patient Education: Patient Medication Summary Completed 01/02/2011 Appointment: Belia Reid WPtel: [address] [place] [address] FOLLOW UP 12/12/2010 Appointment: Belia Reid WPtel: [address] [place] [address] ACUTE ILLNESS 12/07/2010 Patient Education: Patient Medication Summary Completed 12/07/2010 Visit Plan: Increase Buspar to 10mg po B ID 11/16/2010 Appointment: Belia Reid WPtel: [address] [place] [address] FOLLOW UP 11/16/2010 Patient Education: Patient Medication Summary Completed 11/16/2010 Appointment: Iraida Jones WPtel: [address] [place] [address] Follow UP 11/02/2010 Patient Education: Patient Medication Summary Completed 11/02/2010 Visit Plan: Depo-Medrol/Kenalog given fo r allergies Add BuSpar for anxiety Oxycodone one p.o. q.i.d. for number 120 refilled 10/18/2010 Appointment: Belia Reidtel: [address] [place] [address] FOLLOW UP 10/18/2010 Patient Education: Patient Medication Summary Completed 10/18/2010 Visit Plan: Continue current meds Discus sed epidurals for back vs PT--will proceed with epidurals to thoracolumbar region to see if helps with pain 09/19/2010 Appointment: Belia Reidtel: [address] [place] [address] FOLLOW UP 09/19/2010 Patient Education: Patient Medication Summary Completed 09/19/2010 Visit Plan: DC MS contin Check CT scan t horacic spine Fwup pending above results 09/06/2010 Appointment: Belia Reidtel: [address] [place] [address] FOLLOW UP 09/06/2010 Patient Education: Patient Medication Summary Completed 09/06/2010 Visit Plan: Continue current meds Restar t MS contin 15mg po BID and use oxycodone prn Use daily senokot-s 2 po BID 08/10/2010 Appointment: Belia Reidtel: [address] [place] [address] [place] FOLLOW UP 08/10/2010 Patient Education: Patient Medication Summary Completed 08/10/2010 Visit Plan: Depomedrol/Kenalog given Pt sees ENT later this month Cont current meds Mammo scheduled 05/11/2010 Appointment: Belia Reidtel: [address] [place] [address] [place] FOLLOW UP 05/11/2010 Patient Education: Patient Medication Summary Completed 05/11/2010 Appointment: Belia Reidtel: [address] [place] [address] [place] UA 05/04/2010 Patient Education: Patient Medication Summary Completed 05/04/2010 Visit Plan: Pt sent to lab for UA 04/28/2010 Appointment: Belia Reidtel: [address] [place], [place] [phone] [facility] 04/28/2010 Patient Education: Patient Medication Summary Completed 04/28/2010 Visit Plan: Check CT angiogram of chest Restart Advair Use proair prn Cont current meds Fwup with Card as schedulec 04/06/2010 Appointment: Belia Reid WPtel: [address] [place] [address] Hospital Follow Up 04/06/2010 Patient Education: Patient Medication Summary Completed 04/06/2010 Visit Plan: Paperwork filled out for pow erchair Depomedrol/kenalog given Pt sees ENT in 2wks to assess nasal obstruction problems 02/09/2010 Appointment: Belia Reid WPtel: [address] [place], [place] [phone] ESTABLISHED PATIENT 02/09/2010 Patient Education: Patient Medication Summary Completed 02/09/2010 Visit Plan: Change Elavil to Trazadone 1 50mg q HS Diflucan and nystatin for tinea cruris 01/05/2010 Appointment: Belia Reid WPtel: [address] [place], [place] [phone] FOLLOW UP 01/05/2010 Patient Education: Patient Medication Summary Completed 01/05/2010 Appointment: Belia Reid WPtel: [address] [place], [place] [phone] FOLLOW UP 12/07/2009 Patient Education: Patient Medication Summary Completed 12/07/2009 Appointment: Belia Reid WPtel: [address] [place], [place] [phone] FOLLOW UP 11/22/2009 Visit Plan: Cont current meds and await MRI results from Dr. Meadows's office and his final recommendations Will need to follow-up at later date on deviated septum 11/08/2009 Appointment: Belia Reid WPtel: [address] [place] [address] FOLLOW UP 11/08/2009 Patient Education: Patient Medication Summary Completed 11/08/2009 Visit Plan: Cont PT/OT See Neurosurgery Cont Tortoise shell brace 10/24/2009 Appointment: Belia Reid WPtel: [address] [place] [address] FOLLOW UP 10/24/2009 Patient Education: Patient Medication Summary Completed 10/24/2009 Appointment: Belia Reid WPtel: [address] [place] [address] Follow Up 10/17/2009 Appointment: Belia Reid WPtel: [address] [place] [address] ACUTE ILLNESS 07/25/2009 Patient Education: Patient Medication Summary Completed 07/25/2009 Appointment: Belia Reid WPtel: [address] [place] [address] FOLLOW UP 05/26/2009 Patient Education: Patient Medication Summary Completed 05/26/2009 Referral: Chino Balderas WPtel: [facility]66[facility] Referral Initiated Referral: Merry Vale WPtel: [facility] [id number] Vale will review referral and book appointment Completed Referral: Francisco Javier Yoder WPtel: [phone] [id number] Patient needs EGD insurance will not inc rease a medication unless this procedure results show a need Completed Referral: Francisco Javier Yoder WPtel: [address] [place] [address] [place] Referral Historical Reference Referral: Francisco Javier Yoder WPtel: [address] [id number] [place] Referral Initiated Instructions Comment . 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 Long [...] from "generic Zyrtec they are getting from [facility]" and try Singulair for 2 weeks. . [...] cancerous cells. Clindamycin as last report indicated Gardranella will try Clindamycin as not having success [...]
--- OUTSIDE RECORDS SUMMARY | 2019-09-04 09:30 | XMS REPORT | CCD ---
Author Author Diana Reid D.O. Organization [facility] Address [address] [place] [address] Phone Care Team Providers Care Drawing In Hand Name Role Phone Belia [facility] D.O., PP Unavailable CCM Unavailable Summary Purpose Interface Exchange Insurance Providers Payer name Policy type / Coverage type Covered libertarian ID Effective Begin Date Effective End Date [employer] MEDICARE Medicare Part B [id number] 2019 Unknown Family History Family History data not found Social History Social History Element Codes Description Effective Dates Tobacco history SNOMED CT: 839714668 Nonsmoker 09/13/2010 Allergies, Adverse Reactions, Alerts Substance Reaction Codes Entered Date Inactivated Date Status Eggs reaction [id number] 09/15/2015 No Inactive Date Active _ Unknown [...] Fill Instructions baclofen 10 mg tablet RxNorm: 313694 1 Tablet(s) Oral QD for pa in/spasm 08/25/2019 09/24/2019 Active meloxicam 15 mg tablet RxNorm: 811142 1 Tablet(s) Oral QD for pain 08/25/2019 09/24/2019 Active Insulin Syringe 1 mL 29 gauge x 1/2" RxNorm: 2 s yringes daily with insulin Dx: E11.65 08/12/2019 No Stop Date Active Ativan 0.5 mg tablet RxNorm: 186835 1 Tablet(s) Oral th ree times a day for anxiety/shortness of air/stridor 07/29/2019 08/27/2019 Inactive Singulair 10 mg tablet RxNorm: 517173 1 Tablet(s) Oral QPM 07/29/19 20 01/25/2020 Active diltiazem CD 240 mg capsule,extended release 24 hr RxNorm: 8 73498 1 Capsule(s) Oral QD 07/15/2019 01/10/2020 Active metoprolol tartrate 50 mg tablet RxNorm: 129029 1 Table t(s) Oral two times a day 07/06/2019 No Stop Date Active Novolin N NPH U-100 Insulin isophane 100 unit/mL subcu taneous susp RxNorm: 396480 25 Unit(s) Subcutaneous two times a day 07/06/2019 07/06/2019 I nactive Colestid 1 gram tablet RxNorm: 5796424 1 Tablet(s) Oral two times a day for diarrhea 07/06/2019 09/04/2019 Active pramipexole 1 mg tablet RxNorm: 038113 1 Tablet(s) Oral QPM FOR RESTLESS LEGS (REPLACES REQUIP) 06/25/2019 06/19/2020 Active hydroxyzine HCl 25 mg tablet RxNorm: 936794 1 Tablet(s) Oral QPM for itching/aniety 06/25/2019 09/23/2019 Active Ativan 0.5 mg tablet RxNorm: 217478 1 Tablet(s) Oral th ree times a day for anxiety/shortness of air/stridor 06/25/2019 07/25/2019 Inactive Levaquin 500 mg tablet RxNorm: 905784 1 Tablet(s) Oral QD 06/16/2019 06/23/2019 Inactive Flagyl 500 mg tablet RxNorm: 786898 1 Tablet(s) Oral three time s a day 06/16/2019 06/23/2019 Inactive Vancocin 125 mg capsule RxNorm: 641905 1 Capsule(s) Oral four t imes a day 06/08/2019 06/18/2019 Inactive omeprazole 40 mg capsule,delayed release RxNorm: 511380 1 Capsule(s) Oral two times a day 05/26/2019 11/21/2019 Active Flagyl 500 mg tablet RxNorm: 925037 1 Tablet(s) Oral three time s a day 05/26/2019 06/05/2019 Inactive diltiazem CD 240 mg capsule,extended release 24 hr RxNorm: 8 51020 1 Capsule(s) Oral QD 05/26/2019 07/14/2019 Inactive Cipro 250 mg tablet RxNorm: 756474 1 Tablet(s) Oral two times a day 05/26/2019 06/02/2019 Inactive hydroxyzine HCl 25 mg tablet RxNorm: 030183 1 Tablet(s) Oral QPM for itching/aniety 05/21/2019 06/24/2019 Inactive metoprolol tartrate 25 mg tablet RxNorm: 391412 1 Table t(s) Oral two times a day 05/21/2019 07/05/2019 Inactive hydroxyzine HCl 25 mg tablet RxNorm: 284357 1 Tablet(s) Oral QPM for itching/aniety 05/13/2019 05/20/2019 Inactive Singulair 10 mg tablet RxNorm: 930087 1 Tablet(s) Oral QPM 05/06/1905/12/2019 Inactive gabapentin 600 mg tablet RxNorm: 381995 1 Tablet(s) Oral QD 020 06/05/2019 Inactive Valium 5 mg tablet RxNorm: 476858 1 Tablet(s) Oral QPM for stri joao/muscle spasm 04/29/2019 06/24/2019 Inactive baclofen 10 mg tablet RxNorm: 770809 1 Tablet(s) Oral QPM for s pasm/neck pain 04/24/2019 05/23/2019 Inactive baclofen 10 mg tablet RxNorm: 061722 1 Tablet(s) Oral QPM for s pasm/neck pain 04/24/2019 04/23/2019 Inactive Novolin N NPH U-100 Insulin isophane 100 unit/mL subcu taneous susp RxNorm: 460020 23 Unit(s) Subcutaneous two times a day 04/20/2019 07/05/2019 I nactive cyclobenzaprine 5 mg tablet RxNorm: 940305 1 Tablet(s) Oral three times a day as needed 04/16/2019 04/23/2019 Inactive hydroxyzine HCl 25 mg tablet RxNorm: 142410 1 Tablet(s) Oral three times a day for itching/aniety 04/08/2019 05/12/2019 Inactive gabapentin 600 mg tablet RxNorm: 323302 1 Tablet(s) Oral two ti mes a day 04/08/2019 05/05/2019 Inactive gabapentin 600 mg tablet RxNorm: 776184 1 Tablet(s) Oral two ti mes a day 04/08/2019 04/07/2019 Inactive Novolin N NPH U-100 Insulin isophane 100 unit/mL subcu taneous susp RxNorm: 379852 10 Unit(s) Subcutaneous two times a day 03/03/2019 04/19/2019 I nactive gabapentin 300 mg capsule RxNorm: 278624 1 Capsule(s) O ral every night at bedtime for neuropathy 02/26/2019 04/07/2019 Inactive gabapentin 300 mg capsule RxNorm: 140043 1 Capsule(s) O ral every night at bedtime for neuropathy 02/20/2019 02/25/2019 Inactive buspirone 5 mg tablet RxNorm: 533762 TAKE 1 TABLET THREE TIMES MILDRED Y 02/12/2019 05/12/2019 Inactive pramipexole 1 mg tablet RxNorm: 155049 1 Tablet(s) Oral QPM FOR RESTLESS LEGS (REPLACES REQUIP) 02/12/2019 06/24/2019 Inactive Lexapro 10 mg tablet RxNorm: 136223 TAKE 1 TABLET EVERY DAY FOR MOO D 01/31/2019 No Stop Date Active Ativan 0.5 mg tablet RxNorm: 964037 TAKE 1 TABLET BY MO UT THREE TIMES DAILY NEEDED FOR ANXIETY 01/26/2019 04/28/2019 Inactive Ativan 0.5 mg tablet RxNorm: 990840 TAKE 1 TABLET BY MO UT THREE TIMES DAILY NEEDED FOR ANXIETY 01/05/2019 01/05/2019 Inactive Levaquin 500 mg tablet RxNorm: 020899 1 Tablet(s) Oral QD 12/25/2018 12/24/2018 Inactive Levaquin 500 mg tablet RxNorm: 840453 1 Tablet(s) Oral QD 12/25/2018 01/04/2019 Inactive baclofen 10 mg tablet RxNorm: 462778 1 Tablet(s) Oral three maico es a day 11/20/2018 01/19/2019 Inactive Ativan 0.5 mg tablet RxNorm: 678249 TAKE 1 TABLET BY CO UT THREE TIMES DAILY NEEDED FOR ANXIETY 11/20/2018 01/04/2019 Inactive gabapentin 300 mg capsule RxNorm: 963176 1 Capsule(s) O ral every night at bedtime for neuropathy 11/20/2018 12/20/2018 Inactive Lexapro 10 mg tablet RxNorm: 966502 1 Tablet(s) PO QD for mood 07/201801/30/2019 Inactive Zithromax Z-Lj 250 mg tablet RxNorm: 119281 Tablet(s) PO take as directed 11/04/2018 11/19/2018 Inactive Insulin Syringe 1 mL 29 gauge x 1/2" RxNorm: 2 s yringes daily with insulin Dx: E11.65 10/08/2018 08/11/2019 Inactive gabapentin 300 mg capsule RxNorm: 419023 1 Capsule(s) PO QHS fo r neuropathy 09/18/2018 10/17/2018 Inactive cyclobenzaprine 5 mg tablet RxNorm: 111522 1 Tablet(s) PO TID a s needed 09/09/2018 09/08/2018 Inactive cyclobenzaprine 5 mg tablet RxNorm: 333019 1 Tablet(s) PO TID a s needed 09/09/2018 10/08/2018 Inactive prednisone 20 mg tablet RxNorm: 944061 1 Tablet(s) PO QD 09/08/2018 0 09/12/2018 Inactive Natalie Greenberg U-100 Insulin 100 unit/mL (3 mL) subcu taneous pen RxNorm: 363212 55 Unit(s) SQ QAM 08/28/2018 11/03/2018 Inactive hydroxyzine HCl 25 mg tablet RxNorm: 093274 1 Tablet(s) PO QHS for itching 08/20/2018 05/12/2019 Inactive Lexapro 10 mg tablet RxNorm: 935658 1 Tablet(s) PO QD for mood 08/0210/18/2018 Inactive sumatriptan 100 mg tablet RxNorm: 717587 1 Tablet(s) PO at headache onset. May repeat 1 in two hours if headache remains. Max of 2 per 24 hours 04/02/2018 05/20/2018 Inactive Diflucan 150 mg tablet RxNorm: 893381 1 Tablet(s) PO QD 03/18/2018 Inactive Diflucan 150 mg tablet RxNorm: 189857 1 Tablet(s) PO QD 03/18/2018 Inactive Flagyl 500 mg tablet RxNorm: 889283 1 Tablet(s) PO TID 03/17/2018 Inactive Levaquin 500 mg tablet RxNorm: 736968 1 Tablet(s) PO QD 03/17/2018 Inactive Levaquin 500 mg tablet RxNorm: 795962 1 Tablet(s) PO QD 03/17/2018 Inactive Flagyl 500 mg tablet RxNorm: 500591 1 Tablet(s) PO TID 03/17/2018 Inactive ketoconazole 200 mg tablet RxNorm: 826442 1 Tablet(s) PO QD 019 03/19/2018 Inactive Celebrex 200 mg capsule RxNorm: 727406 1 Capsule(s) PO BID 02/06/20 18 05/20/2018 Inactive tramadol 50 mg tablet RxNorm: 639520 1 Tablet(s) PO TID as needed 1 04/08/2017 05/20/2018 Inactive gabapentin 300 mg capsule RxNorm: 544009 1 Capsule(s) PO BID 201705/20/2018 Inactive Diflucan 150 mg tablet RxNorm: 236349 1 Tablet(s) PO QD 01/20/2018 Inactive pramipexole 1 mg tablet RxNorm: 908551 1 Tablet(s) PO Q PM FOR RESTLESS LEGS (REPLACES REQUIP) 01/08/2018 02/11/2019 Inactive cyclobenzaprine 10 mg tablet RxNorm: 907943 1 Tablet(s) PO TID as needed for muscle spasm 12/17/2017 05/20/2018 Inactive pramipexole 1 mg tablet RxNorm: 097515 TAKE 1 TABLET BY MOUTH ONCE DAILY IN THE EVENING FOR RESTLESS LEGS (REPLACES REQUIP) 12/04/2017 01/05/2018 Inac tive Amaryl 4 mg tablet RxNorm: 701857 1 Tablet(s) PO BID replaces 2mg 0 11/05/2017 12/16/2017 Inactive Singulair 10 mg tablet RxNorm: 183122 1 Tablet(s) PO QHS for al lergies/lungs 10/30/2017 12/16/2017 Inactive Diflucan 100 mg tablet RxNorm: 326294 1 Tablet(s) PO QD 10/23/2017 Inactive Ativan 0.5 mg tablet RxNorm: 877403 TAKE 1 TABLET BY MOUTH THRE E TIMES DAILY 08/30/2017 11/20/2018 Inactive buspirone 5 mg tablet RxNorm: 429609 1 Tablet(s) PO TID 07/11/2017 Inactive propranolol 60 mg tablet RxNorm: 985719 1 Tablet(s) PO BID repl aces 40mg dose 06/26/2017 12/16/2017 Inactive Amaryl 4 mg tablet RxNorm: 264803 1 Tablet(s) PO BID replaces 2mg 0 06/12/2017 11/05/2017 Inactive omeprazole 40 mg capsule,delayed release RxNorm: 021212 1 Capsule(s) PO BID TAKE ONE CAPSULE BY MOUTH TWICE DAILY 05/30/2017 11/25/2017 Inactive pramipexole 1 mg tablet RxNorm: 501284 1 Tablet(s) PO Q PM for restless legs--replaces requip 05/30/2017 11/25/2017 Inactive amitriptyline 50 mg tablet RxNorm: 807282 1 Tablet(s) PO QHS 201709/16/2017 Inactive Diflucan 100 mg tablet RxNorm: 052152 1 Tablet(s) PO BID 05/07/2017 0 05/20/2017 Inactive nystatin (bulk) 100 million unit powder RxNorm: Application TO P BID 05/07/2017 05/20/2018 Inactive cholestyramine (with sugar) 4 gram oral powder RxNorm: 032176 1 Unit Dose PO QD 05/07/2017 01/20/2018 Inactive Ativan 0.5 mg tablet RxNorm: 329262 TAKE ONE TABLET BY MOUTH TH REE TIMES DAILY 05/01/2017 09/02/2017 Inactive Trulicity 1.5 mg/0.5 mL subcutaneous pen injector RxNorm: 15 24549 1 Unit Dose SQ WEEKLY 02/22/2017 03/23/2017 Inactive doxycycline hyclate 100 mg capsule RxNorm: 3683028 1 Capsule(s) PO BID 01/23/2017 02/05/2017 Inactive Amaryl 4 mg tablet RxNorm: 267304 1 Tablet(s) PO BID replaces 2mg 1 03/25/2016 05/22/2017 Inactive magnesium oxide 400 mg capsule RxNorm: 052686 1 Capsule(s) PO QD 07/18/2017 Inactive Ativan 0.5 mg tablet RxNorm: 992464 TAKE ONE TABLET BY MOUTH TH REE TIMES DAILY 01/17/2017 05/01/2017 Inactive Amaryl 2 mg tablet RxNorm: 436115 1 Tablet(s) PO BID 12/27/201601/22 Inactive Amaryl 2 mg tablet RxNorm: 880628 1 Tablet(s) PO BID 12/26/201612/26 Inactive Ativan 0.5 mg tablet RxNorm: 324619 TAKE ONE TABLET BY MOUTH TH REE TIMES DAILY 12/05/2016 01/18/2017 Inactive pramipexole 1 mg tablet RxNorm: 817118 1 Tablet(s) PO Q PM for restless legs--replaces requip 11/26/2016 05/30/2017 Inactive Mobic 15 mg tablet RxNorm: 280032 1 Tablet(s) PO QD 10/08/20162016 Inactive cyclobenzaprine 5 mg tablet RxNorm: 208016 1/2- 1 Tablet(s) PO TID 10/08/2016 10/17/2016 Inactive Ativan 0.5 mg tablet RxNorm: 930442 1 Tablet(s) PO TID 09/20/201607/2016 Inactive amitriptyline 50 mg tablet RxNorm: 476409 1 Tablet(s) PO QHS 201605/30/2017 Inactive propranolol 60 mg tablet RxNorm: 863101 1 Tablet(s) PO BID repl aces 40mg dose 09/19/2016 06/26/2017 Inactive Ativan 0.5 mg tablet RxNorm: 212566 1 Tablet(s) PO TID 08/20/2016 Inactive omeprazole 40 mg capsule,delayed release RxNorm: 678844 1 Capsule(s) PO BID TAKE ONE CAPSULE BY MOUTH TWICE DAILY 08/20/2016 05/30/2017 Inactive amitriptyline 50 mg tablet RxNorm: 254791 1 Tablet(s) PO QHS 201609/18/2016 Inactive pramipexole 1 mg tablet RxNorm: 529817 1 Tablet(s) PO Q PM for restless legs--replaces requip 07/23/2016 11/25/2016 Inactive Amaryl 2 mg tablet RxNorm: 379705 1 Tablet(s) PO BID 07/23/201612/27 Inactive propranolol 40 mg tablet RxNorm: 460056 1 Tablet(s) PO BID 07/13/1909/18/2016 Inactive Ativan 0.5 mg tablet RxNorm: 461488 1 Tablet(s) PO QID 06/19/2016 Inactive Amaryl 2 mg tablet RxNorm: 018159 1 Tablet(s) PO BID 06/19/201607/22 Inactive Ativan 0.5 mg tablet RxNorm: 890620 1 Tablet(s) PO QID 06/19/2016 Inactive buspirone 5 mg tablet RxNorm: 526458 1 Tablet(s) PO TID 06/19/2016 Inactive Ativan 0.5 mg tablet RxNorm: 359006 1 Tablet(s) PO BID 05/24/2016 Inactive buspirone 5 mg tablet RxNorm: 817005 1 Tablet(s) PO TID 05/23/2016 Inactive Macrobid 100 mg capsule RxNorm: 465482 1 Capsule(s) PO QOD 05/03/19 17 10/07/2016 Inactive pramipexole 1 mg tablet RxNorm: 275178 Tablet(s) 1 Tabl et(s) PO QPM for restless legs--replaces requip 04/26/2016 06/24/2016 Inactive propranolol 40 mg tablet RxNorm: 933511 TAKE ONE TABLET BY MOUT H TWICE DAILY 04/26/2016 06/24/2016 Inactive Detrol LA 4 mg capsule,extended release RxNorm: 265601 1 Capsul e(s) PO QHS 04/03/2016 05/02/2016 Inactive prednisone 20 mg tablet RxNorm: 219422 1 Tablet(s) PO QD 02/29/2016 0 03/04/2016 Inactive Actos 30 mg tablet RxNorm: 187149 TAKE ONE TABLET BY MOUTH ONCE DAILY 02/27/2016 12/19/2016 Inactive clindamycin 300 mg capsule RxNorm: 216705 1 Capsule(s) PO TID 02/0102/08/2016 Inactive Flagyl 500 mg tablet RxNorm: 333545 1 Tablet(s) PO BID 02/02/201609/2015 Inactive omeprazole 40 mg capsule,delayed release RxNorm: 868234 TAKE ONE CAPSULE BY MOUTH TWICE DAILY 01/15/2016 07/12/2016 Inactive gabapentin 300 mg capsule RxNorm: 247680 1 Capsule(s) PO QAM an d 2 po q HS 01/05/2016 06/18/2016 Inactive gabapentin 300 mg capsule RxNorm: 439986 1 Capsule(s) P O BID 1 Capsule(s) PO QHS 12/05/2015 01/04/2016 Inactive cyclobenzaprine 10 mg tablet RxNorm: 120111 1 Tablet(s) PO TID for spasm as needed for muscle spasm 12/05/2015 06/18/2016 Inactive ciprofloxacin 250 mg tablet RxNorm: 801835 1 Tablet(s) PO BID 12/0412/14/2015 Inactive pramipexole 1 mg tablet RxNorm: 834568 Tablet(s) 1 Tabl et(s) PO QPM for restless legs--replaces requip 11/07/2015 11/26/2016 Inactive Januvia 100 mg tablet RxNorm: 171979 1 Tablet(s) PO QD 10/26/201504/2015 Inactive propranolol 40 mg tablet RxNorm: 249940 TAKE ONE TABLET BY MOUT H TWICE DAILY 10/25/2015 04/21/2016 Inactive gabapentin 300 mg capsule RxNorm: 264094 1 Capsule(s) PO QHS 201512/04/2015 Inactive Cipro 500 mg tablet RxNorm: 676605 1 Tablet(s) PO BID 10/05/201511/2015 Inactive pramipexole 1 mg tablet RxNorm: 276568 Tablet(s) 1 Tabl et(s) PO QPM for restless legs--replaces requip 10/04/2015 11/02/2015 Inactive propranolol 40 mg tablet RxNorm: 682296 TAKE ONE TABLET BY MOUT H TWICE DAILY 09/26/2015 10/24/2015 Inactive Amaryl 2 mg tablet RxNorm: 171737 1 Tablet(s) PO QD 09/15/20152016 Inactive gabapentin 300 mg capsule RxNorm: 059350 1 Capsule(s) PO QHS 201510/14/2015 Inactive buspirone 5 mg tablet RxNorm: 871206 1 Tablet(s) PO TID 09/15/2015 Inactive pramipexole 1 mg tablet RxNorm: 254131 Tablet(s) 1 Tabl et(s) PO QPM for restless legs--replaces requip 09/08/2015 10/03/2015 Inactive pramipexole 1 mg tablet RxNorm: 062097 1 Tablet(s) PO Q PM for restless legs--replaces requip 08/08/2015 09/08/2015 Inactive Amaryl 2 mg tablet RxNorm: 356308 1 Tablet(s) PO QD 07/07/20152015 Inactive pramipexole 1 mg tablet RxNorm: 182420 1 Tablet(s) PO Q PM for restless legs--replaces requip 07/05/2015 08/03/2015 Inactive ropinirole 2 mg tablet RxNorm: 729104 TAKE ONE TABLET BY MOUTH TWICE DAILY 05/09/2015 09/14/2015 Inactive Diflucan 100 mg tablet RxNorm: 434685 1 Tablet(s) PO QD 03/30/2015 Inactive propranolol 40 mg tablet RxNorm: 888853 1 Tablet(s) PO BID 02/24/20 15 08/21/2015 Inactive [SAVINGS FOR UNINSURED PATIE NTS -- BIN:943653, PCN: ASPROD1, Group: AME08, ID# [id number], Process claim through [employer], for questions: . THIS IS NOT INSURANCE.] Flagyl 500 mg tablet RxNorm: 372332 1 Tablet(s) PO BID 02/03/201502/2015 Inactive Cipro 500 mg tablet RxNorm: 402252 1 Tablet(s) PO BID 02/03/201502/01 Inactive Carafate 1 gram tablet RxNorm: 921270 1 Tablet(s) PO QID make i nto slurry 02/03/2015 09/14/2015 Inactive ondansetron HCl 4 mg tablet RxNorm: 532354 1 Tablet(s) PO Q4H as needed for nausea 12/29/2014 01/04/2016 Inactive Diflucan 100 mg tablet RxNorm: 397710 1 Tablet(s) PO QD 12/29/2014 Inactive Keflex 500 mg capsule RxNorm: 691421 1 Capsule(s) PO TID 12/29/2014 1 03/09/2014 Inactive omeprazole 40 mg capsule,delayed release RxNorm: 088140 1 Capsu le(s) PO BID 12/27/2014 12/21/2015 Inactive [SAVINGS FOR UNINSUR ED PATIENTS -- BIN:025868, PCN: ASPROD1, Group: AME08, ID# [id number], Process claim through [employer], for questions: . THIS IS NOT INSURANCE.] ropinirole 2 mg tablet RxNorm: 894210 1 Tablet(s) PO BID 09/29/2014 0 03/27/2015 Inactive [SAVINGS FOR UNINSURED PATIENTS -- BIN:0 10132, PCN: ASPROD1, Group: AME08, ID# [id number], Process claim through [employer], for questions: . THIS IS NOT INSURANCE.] buspirone 5 mg tablet RxNorm: 559463 1 Tablet(s) PO TID 09/17/2014 Inactive ropinirole 2 mg tablet RxNorm: 694848 1 Tablet(s) PO BID 09/02/2014 0 09/28/2014 Inactive [SAVINGS FOR UNINSURED PATIENTS -- BIN:0 54407, PCN: ASPROD1, Group: AME08, ID# [id number], Process claim through [employer], for questions: . THIS IS NOT INSURANCE.] Zyrtec 10 mg tablet RxNorm: 2713465 1 Tablet(s) PO QD 09/02/201412/02 Inactive propranolol 40 mg tablet RxNorm: 937041 1 Tablet(s) PO BID 07/21/19 15 02/23/2015 Inactive [SAVINGS FOR UNINSURED PATIE NTS -- BIN:318015, PCN: ASPROD1, Group: AME08, ID# [id number], Process claim through [employer], for questions: . THIS IS NOT INSURANCE.] ropinirole 2 mg tablet RxNorm: 450899 1 Tablet(s) PO QHS 05/14/2014 0 09/01/2014 Inactive [SAVINGS FOR UNINSURED PATIENTS -- BIN:0 53169, PCN: ASPROD1, Group: AME08, ID# [id number], Process claim through [employer], for questions: . THIS IS NOT INSURANCE.] cyclobenzaprine 10 mg tablet RxNorm: 901622 1 Tablet(s) PO QHS for spasm 04/06/2014 09/01/2014 Inactive ipratropium-albuterol 0.5 mg-3 mg(2.5 mg base)/3 mL ne bulization soln RxNorm: 5014143 1 Unit Dose INH Q4H 03/16/2014 No Stop Date Active [SAVINGS FOR UNINSURED PATIENTS -- BIN:811830, PCN: ASPROD1, Group: AME08, ID# [id number], Process claim through [employer], for questions: . THIS IS NOT INSURANCE.] prednisone 20 mg tablet RxNorm: 618638 1 Tablet(s) PO BID 03/09/2014 03/15/2014 Inactive [SAVINGS FOR UNINSURED PATIENTS -- BIN:0 65665, PCN: ASPROD1, Group: AME08, ID# [id number], Process claim through [employer], for questions: . THIS IS NOT INSURANCE.] ipratropium-albuterol 0.5 mg-3 mg(2.5 mg base)/3 mL ne bulization soln RxNorm: 8337662 1 Unit Dose INH Q4H 03/09/2014 03/15/2014 Inactive [SAVINGS FOR UNINSURED PATIENTS -- BIN:252649, PCN: ASPROD1, Group: AME08, ID# [id number], Process claim through [employer], for questions: . THIS IS NOT INSURANCE.] Levaquin 500 mg tablet RxNorm: 696135 1 Tablet(s) PO QD 03/09/2014 Inactive [SAVINGS FOR UNINSURED PATIENTS -- BIN:0 71742, PCN: ASPROD1, Group: AME08, ID# [id number], Process claim through [employer], for questions: . THIS IS NOT INSURANCE.] Carafate 1 gram tablet RxNorm: 939328 1 Tablet(s) PO AC & HS ma ke into slurry 02/09/2014 09/01/2014 Inactive [SAVINGS FOR UNINSUR ED PATIENTS -- BIN:968705, PCN: ASPROD1, Group: AME08, ID# [id number], Process claim through [employer], for questions: . THIS IS NOT INSURANCE.] Fioricet 50 mg-300 mg-40 mg capsule RxNorm: 5881400 1-2 Capsule(s) PO Q4H as needed for headache --max of 6 a day 02/09/2014 09/01/2014 Inactive [SAVINGS FOR UNINSURED PATIENTS -- BIN:368829, PCN: ASPROD1, Group: AME08, ID# [id number], Process claim through [employer], for questions: . THIS IS NOT INSURANCE.] propranolol 40 mg tablet RxNorm: 023647 1 Tablet(s) PO BID 12/08/19 14 06/04/2014 Inactive [SAVINGS FOR UNINSURED PATIE NTS -- BIN:252979, PCN: ASPROD1, Group: AME08, ID# [id number], Process claim through [employer], for questions: . THIS IS NOT INSURANCE.] buspirone 5 mg tablet RxNorm: 607999 1 Tablet(s) PO TID 12/02/2013 Inactive omeprazole 40 mg capsule,delayed release RxNorm: 202453 1 Capsu le(s) PO BID 11/25/2013 11/19/2014 Inactive [SAVINGS FOR UNINSUR ED PATIENTS -- BIN:844678, PCN: ASPROD1, Group: AME08, ID# [id number], Process claim through [employer], for questions: . THIS IS NOT INSURANCE.] ropinirole 2 mg tablet RxNorm: 778193 1 Tablet(s) PO QHS 11/10/2013 0 05/08/2014 Inactive [SAVINGS FOR UNINSURED PATIENTS -- BIN:0 54686, PCN: ASPROD1, Group: AME08, ID# [id number], Process claim through [employer], for questions: . THIS IS NOT INSURANCE.] Cipro 500 mg tablet RxNorm: 192911 1 Tablet(s) PO BID 10/21/201312/03 Inactive [SAVINGS FOR UNINSURED PATIENTS -- BIN:0 20909, PCN: ASPROD1, Group: AME08, ID# [id number], Process claim through [employer], for questions: . THIS IS NOT INSURANCE.] hydroxyzine HCl 25 mg tablet RxNorm: 721675 1 Tablet(s) PO Q4-6 H as needed 10/05/2013 01/04/2016 Inactive [SAVINGS FOR UNINSUR ED PATIENTS -- BIN:334852, PCN: ASPROD1, Group: AME08, ID# [id number], Process claim through [employer], for questions: . THIS IS NOT INSURANCE.] triamcinolone acetonide 0.1 % topical cream RxNorm: 8886586 Appl ication TOP BID 10/05/2013 09/01/2014 Inactive [SAVINGS FOR UNINSUR ED PATIENTS -- BIN:718087, PCN: ASPROD1, Group: AME08, ID# [id number], Process claim through [employer], for questions: . THIS IS NOT INSURANCE.] albuterol sulfate HFA 90 mcg/actuation aerosol inhaler RxNor m: 5689213 2 Puff(s) INH Q4H as needed for cough 10/01/2013 12/22/2013 Inactive [MAKSIM INGS FOR UNINSURED PATIENTS -- BIN:698661, PCN: ASPROD1, Group: AME08, ID# [id number], Process claim through [employer], for questions: . THIS IS NOT INSURANCE.] propranolol 40 mg tablet RxNorm: 457959 1 Tablet(s) PO BID 09/02/19 14 11/29/2013 Inactive [SAVINGS FOR UNINSURED PATIE NTS -- BIN:467259, PCN: ASPROD1, Group: AME08, ID# [id number], Process claim through [employer], for questions: . THIS IS NOT INSURANCE.] propranolol 40 mg tablet RxNorm: 152676 1 Tablet(s) PO BID 08/05/19 14 08/31/2013 Inactive [SAVINGS FOR UNINSURED PATIE NTS -- BIN:238410, PCN: ASPROD1, Group: AME08, ID# [id number], Process claim through [employer], for questions: . THIS IS NOT INSURANCE.] Toprol XL 50 mg tablet,extended release RxNorm: 016531 1 Tablet (s) PO QHS 07/23/2013 08/03/2013 Inactive Macrobid 100 mg capsule RxNorm: 590340 1 Capsule(s) PO BID 07/04/19 14 07/09/2013 Inactive Toprol XL 50 mg tablet,extended release RxNorm: 023175 1 Tablet (s) PO QHS 05/28/2013 06/26/2013 Inactive ciprofloxacin 500 mg tablet RxNorm: 216355 1 Tablet(s) PO BID 05/2706/02/2013 Inactive Bystolic 5 mg tablet RxNorm: 197583 1 Tablet(s) PO QD 05/27/201305/03 Inactive ropinirole 2 mg tablet RxNorm: 977882 1 Tablet(s) PO QHS 04/22/2013 0 11/09/2013 Inactive Cipro 250 mg tablet RxNorm: 840091 1 Tablet(s) PO BID 04/06/201311/2013 Inactive ropinirole 2 mg tablet RxNorm: 083594 1 Tablet(s) PO QHS 02/17/2013 0 04/21/2013 Inactive Amaryl 2 mg tablet RxNorm: 120835 1 Tablet(s) PO QAM 11/11/201211/10 Inactive Amaryl 2 mg tablet RxNorm: 341753 1 Tablet(s) PO QAM 11/11/201204/05 Inactive omeprazole 40 mg capsule,delayed release RxNorm: 036526 1 Capsu le(s) PO BID 08/14/2012 08/08/2013 Inactive Bystolic 5 mg tablet RxNorm: 165319 1 Tablet(s) PO QD 08/14/201205/03 Inactive propranolol 60 mg tablet RxNorm: 457930 Tablet(s) PO TAKE 1 TAB LET TWICE DAILY 08/01/2012 09/01/2012 Inactive Bystolic 5 mg tablet RxNorm: 288480 1 Tablet(s) PO QD 07/21/201207/02 Inactive Bystolic 5 mg tablet RxNorm: 005298 1 Tablet(s) PO QD 07/21/201207/03 Inactive Prilosec 40 mg capsule,delayed release RxNorm: 417067 1 Capsule (s) PO BID 06/24/2012 07/21/2012 Inactive buspirone 10 mg tablet RxNorm: 328786 1 Tablet(s) PO TID 05/08/2012 0 05/23/2016 Inactive Valium 10 mg tablet RxNorm: 389284 1 Tablet(s) PO BID 04/02/201207/03 Inactive Endocet 10 mg-325 mg tablet RxNorm: 9003145 1 Tablet(s) PO QID 03/0607/21/2012 Inactive as needed for severe pain Valium 10 mg tablet RxNorm: 002086 1 Tablet(s) PO BID 02/27/2012 No S top Date Active Endocet 10 mg-325 mg tablet RxNorm: 9301969 1 Tablet(s) PO QID 02/0203/27/2012 Inactive as needed for severe pain Endocet 10 mg-325 mg tablet RxNorm: 6083380 1 Tablet(s) PO QID 01/0302/26/2012 Inactive as needed for severe pain Valium 10 mg tablet RxNorm: 703545 1 Tablet(s) PO BID 01/29/2012 No S top Date Active Protonix 40 mg tablet,delayed release RxNorm: 212525 1 Tablet(s ) PO QD 01/28/2012 07/21/2012 Inactive metformin ER 500 mg tablet,extended release 24 hr RxNorm: 86 0977 1 Tablet(s) PO QD 12/26/2011 07/20/2012 Inactive Trazadone 150 mg Tablet RxNorm: 1 Tablet(s) PO QHS prn sleep 1 04/23/2012 Inactive Endocet 10 mg-325 mg tablet RxNorm: 2144882 1 Tablet(s) PO QID 12/0301/24/2012 Inactive as needed for severe pain Nexium 40 mg capsule,delayed release RxNorm: 783637 1 Capsule(s ) PO QD 12/26/2011 01/27/2012 Inactive Symbicort 160 mcg-4.5 mcg/actuation HFA Aerosol Inhaler RxNo rm: 8570661 2 Puff(s) INH BID 12/04/2011 07/21/2012 Inactive Endocet 10 mg-325 mg tablet RxNorm: 9369648 1 Tablet(s) PO QID 11/0312/25/2011 Inactive as needed for severe pain metformin ER 500 mg tablet,extended release 24 hr RxNorm: 86 0977 1 Tablet(s) PO QD 11/20/2011 12/19/2011 Inactive metformin ER 500 mg tablet,extended release 24 hr RxNorm: 86 0977 1 Tablet(s) PO QD 11/20/2011 11/19/2011 Inactive amitriptyline 100 mg tablet RxNorm: 627462 Tablet(s) PO QHS 1 a nd 1/2 tabs QHS 11/12/2011 11/13/2011 Inactive Valium 10 mg tablet RxNorm: 761829 1 Tablet(s) PO BID 11/09/2011 No S top Date Active Endocet 10 mg-325 mg tablet RxNorm: 5885357 1 Tablet(s) PO QID 10/0211/14/2011 Inactive as needed for severe pain Aricept 10 mg Tab RxNorm: 243582 1 Tablet(s) PO QD 10/05/2011 013 Inactive Valium 10 mg tablet RxNorm: 288075 1 Tablet(s) PO BID 10/05/2011 No S top Date Active Endocet 10 mg-325 mg Tab RxNorm: 2763255 1 Tablet(s) PO QID 012 10/09/2011 Inactive as needed for severe pain Aricept 10 mg Tab RxNorm: 625538 1 Tablet(s) PO QD 08/14/2011 012 Inactive Endocet 10 mg-325 mg Tab RxNorm: 5154121 1 Tablet(s) PO QID 012 08/31/2011 Inactive as needed for severe pain Valium 10 mg Tab RxNorm: 918625 1 Tablet(s) PO BID 08/02/2011 No Stop Date Active propranolol 60 mg tablet RxNorm: 012531 1 Tablet(s) PO BID 07/26/19 12 09/11/2011 Inactive amitriptyline 100 mg tablet RxNorm: 870984 Tablet(s) PO QHS 1 a nd /2 tabs QHS 06/20/2011 09/11/2011 Inactive buspirone 10 mg tablet RxNorm: 499484 1 Tablet(s) PO BID 06/18/2011 0 09/15/2011 Inactive propranolol 60 mg Tab RxNorm: 486644 1 Tablet(s) PO BID 06/18/2011 Inactive gabapentin 800 mg Tab RxNorm: 677735 1 Tablet(s) PO BID 06/18/2011 Inactive ropinirole 2 mg tablet RxNorm: 519060 1 Tablet(s) PO QHS 05/29/2011 0 08/26/2011 Inactive trimethoprim 100 mg Tab RxNorm: 269746 1 Tablet(s) PO QHS 05/29/2011 07/21/2012 Inactive Endocet 10 mg-325 mg Tab RxNorm: 7287026 1 Tablet(s) PO QID 012 2011 Inactive as needed for severe pain Valium 10 mg Tab RxNorm: 747992 1 Tablet(s) PO QHS N eed to take med as prescribed. this is a 40 day RX. No early fills. 05/17/2011 05/20/2018 Inactive propranolol 60 mg Tab RxNorm: 360787 1 Tablet(s) PO BID 04/16/2011 Inactive Neurontin 800 mg Tab RxNorm: 159121 1 Tablet(s) PO QHS 04/05/201103/2011 Inactive Endocet 10 mg-325 mg Tab RxNorm: 3685535 1 Tablet(s) PO QID 012 05/02/2011 Inactive as needed for severe pain oxycodone-acetaminophen 10 mg-325 mg tablet RxNorm: 9559247 1 Ta blet(s) PO Q4H 03/28/2011 05/19/2012 Inactive Valium 10 mg Tab RxNorm: 026521 1 Tablet(s) PO QHS 03/28/2011 012 Inactive buspirone 10 mg Tab RxNorm: 402924 1 Tablet(s) PO BID 03/27/201106/02 Inactive propranolol 60 mg Tab RxNorm: 600592 1 Tablet(s) PO BID 03/19/2011 Inactive Klor-Con M20 20 mEq Tab RxNorm: 0810723 1 Tablet(s) PO QD 03/19/2011 07/21/2012 Inactive Aricept 10 mg Tab RxNorm: 431619 1 Tablet(s) PO QD 02/27/2011 012 Inactive propranolol 60 mg Tab RxNorm: 913697 1 Tablet(s) PO BID 02/19/2011 Inactive omeprazole 40 mg capsule,delayed release RxNorm: 462798 1 Capsu le(s) PO BID 01/24/2011 05/23/2011 Inactive clindamycin 300 mg capsule RxNorm: 686841 1 Capsule(s) PO TID 01/2402/02/2011 Inactive propranolol 60 mg Tab RxNorm: 430734 1 Tablet(s) PO BID 01/22/2011 No Stop Date Active nystatin 100,000 unit/g Topical Cream RxNorm: 886706 Applicatio n TOP BID 01/15/2011 01/14/2011 Inactive to rash for 2-4 week s Diflucan 200 mg Tab RxNorm: 844968 1 Tablet(s) PO QD 01/15/201101/28 Inactive buspirone 10 mg Tab RxNorm: 707827 1 Tablet(s) PO BID 01/08/201103/05 Inactive Valium 10 mg Tab RxNorm: 200961 1 Tablet(s) PO QHS 01/05/2011 012 Inactive Diflucan 200 mg Tab RxNorm: 741524 1 Tablet(s) PO QD 01/01/201101/14 Inactive Diflucan 200 mg Tab RxNorm: 247853 1 Tablet(s) PO QD 12/18/201012/31 Inactive Valium 10 mg Tab RxNorm: 102359 1 Tablet(s) PO QHS 12/12/2010 011 Inactive Diflucan 200 mg Tab RxNorm: 478117 1 Tablet(s) PO QD 12/07/201012/18 Inactive Aricept 10 mg Tab RxNorm: 099786 1 Tablet(s) PO QD 11/20/2010 011 Inactive ropinirole 1 mg Tab RxNorm: 283722 1 Tablet(s) PO QHS 11/16/201005/03 Inactive enalapril maleate 5 mg Tab RxNorm: 533697 1 Tablet(s) PO QD 011 05/20/2018 Inactive buspirone 10 mg Tab RxNorm: 877681 1 Tablet(s) PO BID 11/16/201012/02 Inactive Valium 10 mg Tab RxNorm: 344202 1 Tablet(s) PO QHS 11/07/2010 011 Inactive Pyridium 100 mg Tab RxNorm: 2236564 1 Tablet(s) PO TID 11/02/201004/2010 Inactive Macrobid 100 mg Cap RxNorm: 1535735 1 Capsule(s) PO BID 11/02/2010 Inactive buspirone 10 mg Tab RxNorm: 381514 1 Tablet(s) PO QHS 10/18/201005/02 Inactive propranolol 60 mg Tab RxNorm: 021261 1 Tablet(s) PO BID 09/18/2010 Inactive Valium 10 mg Tab RxNorm: 432960 1 Tablet(s) PO QHS 09/05/2010 011 Inactive Aricept 10 mg Tab RxNorm: 611240 1 Tablet(s) PO QD 08/14/2010 011 Inactive Valium 10 mg Tab RxNorm: 517456 1 Tablet(s) PO QHS 06/26/2010 011 Inactive ropinirole 1 mg Tab RxNorm: 890676 1 Tablet(s) PO QHS 06/19/201010/02 Inactive omeprazole 40 mg Cap, delayed release RxNorm: 994858 1 Capsule( s) PO QD 06/07/2010 10/04/2010 Inactive Endocet 10 mg-325 mg Tab RxNorm: 2213556 1 Tablet(s) PO QID as needed for severe pain 06/07/2010 03/07/2011 Inactive Endocet 10 mg-325 mg Tab RxNorm: 9964308 1 Tablet(s) PO QID as needed for severe pain 05/04/2010 06/02/2010 Inactive Valium 10 mg Tab RxNorm: 963514 1 Tablet(s) PO QHS 05/01/2010 011 Inactive propranolol 60 mg Tab RxNorm: 972274 1 Tablet(s) PO BID 04/03/2010 Inactive Valium 10 mg Tab RxNorm: 695649 1 Tablet(s) PO QHS 03/28/2010 011 Inactive omeprazole 40 mg Cap, Delayed Release RxNorm: 099774 1 Capsule( s) PO QD 03/28/2010 06/06/2010 Inactive Endocet 10 mg-325 mg Tab RxNorm: 8876178 1 Tablet(s) PO QID prn ari n 03/27/2010 05/20/2018 Inactive Valium 10 mg Tab RxNorm: 004051 1 Tablet(s) PO QHS 02/20/2010 011 Inactive Diflucan 100 mg Tab RxNorm: 670974 1 Tablet(s) PO BID 01/23/201003/2009 Inactive Diflucan 100 mg Tab RxNorm: 684987 1 Tablet(s) PO BID 01/05/201001/02 Inactive Aricept 10 mg Tab RxNorm: 956469 1 Tablet(s) PO QD 12/01/2009 011 Inactive OxyContin 20 mg 12 hr Tab RxNorm: 2027720 1 Tablet(s) PO BID 200904/05/2010 Inactive oxycodone-acetaminophen 10 mg-325 mg Tab RxNorm: 3295385 1 Table t(s) PO Q4H 11/22/2009 11/26/2009 Inactive Phenergan 25 mg Tab RxNorm: 959798 1 Tablet(s) PO PRN MIGRAINE 11/0303/07/2011 Inactive Demerol 100 mg Tab RxNorm: 190386 1 Tablet(s) PO PRN MIGRAINE 11/2203/07/2011 Inactive Oxycodone-Acetaminophen 10 mg-325 mg Tab RxNorm: 9297358 1 Table t(s) PO Q4H 10/11/2009 10/15/2009 Inactive Percocet 10 mg-325 mg Tab RxNorm: 7136850 1 Tablet(s) PO Q4H 200910/24/2009 Inactive propranolol 60 mg Tab RxNorm: 885284 1 Tablet(s) PO BID 08/29/2009 Inactive Valium 10 mg Tab RxNorm: 906026 1 Tablet(s) PO QHS 08/16/2009 010 Inactive Keflex 500 mg Cap RxNorm: 047215 1 Capsule(s) PO BID 07/25/200907/31 Inactive Hydroxyzine 25 mg Tab RxNorm: 727398 1 Tablet(s) PO TID 07/25/2009 Inactive Prednisone 20 mg Tab RxNorm: 175245 1 Tablet(s) PO BID 07/25/2009 Inactive Demerol 100 mg Tab RxNorm: 223055 1 Tablet(s) PO PRN MIGRAINE 07/25 No Stop Date Active Ropinirole 1 mg Tab RxNorm: 952880 1 Tablet(s) PO HS 07/20/200902/14 Inactive Valium 10 mg Tab RxNorm: 143387 1 Tablet(s) PO QHS 07/18/2009 010 Inactive Endocet 10 mg-325 mg Tab RxNorm: 2367428 1 Tablet(s) PO TID 010 07/07/2009 Inactive Demerol 100 mg Tab RxNorm: 551986 1 Tablet(s) PO PRN MIGRAINE 06/08 No Stop Date Active Ropinirole 1 mg Tab RxNorm: 602745 1 Tablet(s) PO HS 05/16/200907/14 Inactive ipratropium-albuterol 0.5 mg-3 mg(2.5 mg base)/3 mL ne bulization soln RxNorm: 8064738 1 Unit Dose INH Q4H as needed No Start Date Active MagOx 400 mg (241.3 mg magnesium) tablet RxNorm: 837971 1 Table t(s) PO BID No Start Date Active Vitamin B12 1000mcg Tablet RxNorm: 1 Tablet(s) PO QD No Start Date Active Vitamin D3 5,000 unit tablet RxNorm: 221860 1 Tablet(s) PO QD No Star t Date Active Tylenol Arthritis Pain 650 mg tablet,extended release RxNorm : 7474140 1 Tablet(s) PO Q4H No Start Date Active Lotrimin AF 2 % topical powder RxNorm: 062854 1 Application TOP BID No Start Date Active enalapril maleate 5 mg Tab RxNorm: 319783 1 Tablet(s) PO QD No Star t Date 07/20/2012 Inactive Demerol 100 mg Tab RxNorm: 794687 Tablet(s) PO PRN MIGRAINE No Star t Date 06/02/2009 Inactive metformin 500 mg tablet RxNorm: 738387 1 Tablet(s) PO QD No Start D ate 04/05/2013 Inactive Breo Ellipta 100 mcg-25 mcg/dose powder for inhalation RxNor m: 2667066 1 Puff(s) INH BID No Start Date 01/04/2016 Inactive Mag-Oxide 400 mg Tab RxNorm: 712926 1 Tablet(s) PO QD No Start Date 0 07/21/2012 Inactive Cipro 500 mg Tab RxNorm: 385238 1 Tablet(s) PO QD No Start Date 04/05 Inactive Ativan 0.5 mg tablet RxNorm: 701284 1 Tablet(s) PO TID as needed No Start Date 05/06/2019 Inactive melatonin 3 mg tablet RxNorm: 344169 2 Tablet(s) PO QHS No Start Da te 08/19/2018 Inactive buspirone 10 mg Tab RxNorm: 471240 1 Tablet(s) PO QD No Start Date Inactive sucralfate 100 mg/mL Oral Susp RxNorm: 546211 2 Teaspoon(s) PO QID No Start Date 07/21/2012 Inactive hydrocodone 5 mg-acetaminophen 325 mg tablet RxNorm: 786815 1 Tablet(s) PO Q4H as needed No Start Date 08/19/2018 Inactive Amaryl 2 mg tablet RxNorm: 732600 1 Tablet(s) PO BID No Start Date Inactive OxyContin 20 mg 12 hr Tab RxNorm: 2949143 1 Tablet(s) PO BID No Sta rt Date 11/27/2009 Inactive propranolol 40 mg tablet RxNorm: 050763 1 Tablet(s) PO QID No Start Date 01/19/2018 Inactive Trazadone 150 mg Tablet RxNorm: 1-2 Tablet(s) PO QHS prn sleep No Start Date 08/09/2010 Inactive propranolol 60 mg Tab RxNorm: 985485 1/2 Tablet(s) PO BID No Start Date 01/21/2011 Inactive insulin NPH and regular human subcutaneous RxNorm: 7793707 subcu taneous No Start Date 11/20/2018 Inactive Ativan 0.5 mg tablet RxNorm: 302189 1 Tablet(s) PO QID No Start Date 06/18/2016 Inactive Vasotec 5 mg Tab RxNorm: 604819 1 Tablet(s) PO BID No Start Date 06/2011 Inactive Toprol XL 50 mg tablet,extended release RxNorm: 040453 1 Tablet (s) PO BID No Start Date 04/05/2013 Inactive Ativan 0.5 mg tablet RxNorm: 467616 1 Tablet(s) PO TID No Start Date 05/25/2016 Inactive Klor-Con M20 20 mEq Tab RxNorm: 0045234 1 Tablet(s) PO QD No Start Date 03/19/2011 Inactive sumatriptan 100 mg tablet RxNorm: 263846 1 Tablet(s) PO at headache onset--repeat in 2hrs if remains No Start Date 07/21/2012 Inactive propranolol 60 mg Tab RxNorm: 221539 1 Tablet(s) PO BID No Start Da te 08/28/2009 Inactive Cholestyramine Light 4 gram Oral Powder RxNorm: 8413283 1 Unit Dose PO QD in water No Start Date 07/21/2012 Inactive nystatin 100,000 unit/g Topical Powder RxNorm: 100229 Applicati on TOP BID No Start Date 07/21/2012 Inactive vitamin V65-yroyt acid sublingual RxNorm: sublingual No Start Date 07/05/2013 Inactive cyclobenzaprine 5 mg tablet RxNorm: 053530 1/2-1 Tablet (s) PO TID as needed for muscle spasm No Start Date 07/18/2017 Inactive tramadol 50 mg tablet RxNorm: 436951 2 Tablet(s) PO TID as need ed for pain No Start Date 09/01/2014 Inactive aspirin 81 mg Tab RxNorm: 083541 1 Tablet(s) PO QOD No Start Date 04/2013 Inactive Vitamin B12 1000mcg Tablet RxNorm: 1 Tablet(s) PO QD No Start Date 07/18/2017 Inactive cholestyramine (with sugar) 4 gram oral powder RxNorm: 12546 3 1 Unit(s) PO QD as needed No Start Date 05/20/2018 Inactive ProAir HFA 90 mcg/Actuation Aerosol Inhaler RxNorm: 100870 2 Puff(s) INH Q4H prn shortness of breath No Start Date 07/21/2012 Inactive pravastatin 10 mg Tab RxNorm: 941139 1 Tablet(s) PO QD No Start Date 07/21/2012 Inactive gabapentin 800 mg Tab RxNorm: 412688 1 Tablet(s) PO BID No Start Da te 06/03/2011 Inactive Endocet 10 mg-325 mg Tab RxNorm: 7808156 1 Tablet(s) PO TID No Star t Date 06/02/2009 Inactive Naproxen 500 mg Tab RxNorm: 964359 1 Tablet(s) PO BID No Start Date 0 04/05/2010 Inactive Valium 10 mg Tab RxNorm: 658562 1 Tablet(s) PO BID No Start Date 07/04 Inactive enalapril maleate 5 mg Tab RxNorm: 229516 1 Tablet(s) PO QD No Star t Date 11/15/2010 Inactive doxepin 10 mg capsule RxNorm: 6748206 2 Capsule(s) PO QHS No Start Date 09/17/2018 Inactive MS Contin 15 mg Tab RxNorm: 567838 1 Tablet(s) PO BID No Start Date 0 09/18/2010 Inactive buspirone 5 mg tablet RxNorm: 167616 1 Tablet(s) PO TID No Start Da te 12/01/2013 Inactive Standish 3 Fish Oil Cap RxNorm: 1 Capsule(s) PO QD No Start Date 07/03 Inactive enalapril maleate 5 mg Tab RxNorm: 085674 1/2 Tablet(s) PO QD No St art Date 03/07/2011 Inactive Lyrica 75 mg capsule RxNorm: 580975 1 Capsule(s) PO QHS No Start Da te 02/08/2014 Inactive Lopressor 100 mg tablet RxNorm: 154079 1 Tablet(s) PO BID No Start Date 06/08/2018 Inactive Lantus Solostar U-100 Insulin 100 unit/mL (3 mL) subcu taneous pen RxNorm: 904056 45 Unit(s) SQ QAM No Start Date 05/20/2018 Inactive aspirin 81 mg tablet RxNorm: 138862 1 Tablet(s) PO QD No Start Date 0 09/14/2015 Inactive diltiazem CD 240 mg capsule,extended release 24 hr RxNorm: 8 71904 1 Capsule(s) PO QD No Start Date 05/25/2019 Inactive insulin NPH isophane U-100 human subcutaneous RxNorm: 495645 beckwith bcutaneous No Start Date 04/20/2019 Inactive sumatriptan 100 mg tablet RxNorm: 203362 1 Tablet(s) PO at headache onset. May repeat 1 in two hours if headache remains. Max of 2 per 24 hours No Start Date 04/01/2018 Inactive gabapentin 300 mg capsule RxNorm: 965761 1 Capsule(s) PO QHS No Sta rt Date 02/04/2018 Inactive Topamax 25 mg Tab RxNorm: 668094 Oral No Start Date 03/07/2011 In active Senokot-S 8.6 mg-50 mg Tab RxNorm: 0026345 1 Tablet(s) PO QD No Sta rt Date 03/07/2011 Inactive metformin ER 500 mg 24 hr tablet,extended release RxNorm: 18 50818 1 Tablet(s) PO QD No Start Date 05/20/2018 Inactive Symbicort 80 mcg-4.5 mcg/actuation HFA Aerosol Inhaler RxNor m: 2870675 2 Puff(s) INH BID No Start Date 04/05/2013 Inactive metoprolol tartrate 25 mg tablet RxNorm: 394236 1 Tablet(s) PO BID No Start Date 05/20/2019 Inactive propranolol 60 mg Tab RxNorm: 608460 1/2 Tablet(s) PO BID No Start Date 07/21/2012 Inactive metformin ER 500 mg 24 hr tablet,extended release RxNorm: 18 72020 2 Tablet(s) PO QD No Start Date 12/16/2017 Inactive Insulin Syringe 1 mL 29 gauge x 1/2" RxNorm: 2 s yringes daily with insulin Dx: E11.65 No Start Date 10/07/2018 Inactive Amitriptyline 75 mg Tab RxNorm: 237250 1 Tablet(s) PO QHS No Start Date 10/23/2009 Inactive donepezil 10 mg Tab RxNorm: 742488 1 Tablet(s) PO QD No Start Date Inactive Lantus Solostar U-100 Insulin 100 unit/mL (3 mL) subcu taneous pen RxNorm: 475040 36 Unit(s) SQ QAM No Start Date 12/24/2017 Inactive Miacalcin 200 unit/Actuation Nasal Gray Aerosol RxNorm: 261 204 1 Gray NASAL QD Alternate nostrils each day No Start Date 04/05/2010 Inactive Amitriptyline 150 mg Tab RxNorm: 725740 1 Tablet(s) PO QHS No Start Date 01/04/2010 Inactive Bystolic 5 mg tablet RxNorm: 937383 1 Tablet(s) PO QD No Start Date 0 08/13/2012 Inactive Aricept 10 mg Tab RxNorm: 930178 1 Tablet(s) PO QD No Start Date 11/03 Inactive Lantus Solostar U-100 Insulin 100 unit/mL (3 mL) subcu taneous pen RxNorm: 644921 50 Unit(s) SQ QAM No Start Date 08/27/2018 Inactive albuterol sulfate 2.5 mg/3 mL (0.083 %) Neb Solution RxNorm: 782490 1 Unit Dose INH QID as needed No Start Date 08/23/2015 Inactive Symbicort 160 mcg-4.5 mcg/actuation HFA Aerosol Inhaler RxNo rm: 9539154 2 Puff(s) INH BID No Start Date 12/03/2011 Inactive Savella 50 mg Tab RxNorm: 915171 1 Tablet(s) PO BID No Start Date 04/2010 Inactive amitriptyline 100 mg Tab RxNorm: 772429 1 1/2 Tablet(s) PO QHS No S tart Date 06/19/2011 Inactive nystatin 100,000 unit/g Topical Cream RxNorm: 168201 Ap plication TOP BID to rash for 2-4 weeks No Start Date 01/14/2011 Inactive Trelegy Ellipta 100 mcg-62.5 mcg-25 mcg powder for inhalatio n RxNorm: 2476206 1 Puff(s) INH QD No Start Date 12/16/2017 Inactive Lyrica 150 mg capsule RxNorm: 704805 1 Capsule(s) PO QHS No Start D ate 12/04/2015 Inactive sennosides 8.6 mg tablet RxNorm: 222599 1 Tablet(s) PO BID No Start Date 09/07/2018 Inactive metformin ER 500 mg tablet,extended release 24 hr RxNorm: 86 0975 1 Tablet(s) PO QD No Start Date 10/22/2017 Inactive Fish Oil 1,000 mg Cap RxNorm: 1 Capsule(s) PO QD No Start Date 06/2011 Inactive Zyrtec 10 mg Tab RxNorm: 1313464 1 Tablet(s) PO QD No Start Date 07/03 Inactive albuterol sulfate HFA 90 mcg/actuation aerosol inhaler RxNor m: 8632219 2 Puff(s) INH Q4H as needed for cough No Start Date 09/30/2013 Inactive trazodone 150 mg tablet RxNorm: 817077 1 Tablet(s) PO QHS No Start Date 07/21/2012 Inactive Spiriva with HandiHaler 18 mcg & inhalation capsules RxNorm: 324649 1 Capsule(s) INH QD No Start Date 04/05/2013 Inactive Coreg 3.125 mg Tab RxNorm: 708200 1 Tablet(s) PO BID No Start Date Inactive Phenergan 25 mg Tab RxNorm: 087616 Tablet(s) PO PRN MIGRAINE No Sta rt Date 11/21/2009 Inactive Vitamin D 50,000 unit Cap RxNorm: 3403616 1 Capsule(s) PO QW No Sta rt Date 03/07/2011 Inactive Januvia 100 mg tablet RxNorm: 443675 1 Tablet(s) PO QD No Start Date 10/25/2015 Inactive Eliquis 5 mg tablet RxNorm: 7957231 1 Tablet(s) PO BID No Start Date 08/19/2018 Inactive Advair Diskus 500 mcg-50 mcg/Dose for Inhalation RxNorm: 601810 1 INH BID No Start Date 07/21/2012 Inactive Vitamin D3 5,000 unit tablet RxNorm: 683217 1 Tablet(s) PO QD No St art Date 07/18/2017 Inactive Amaryl 2 mg tablet RxNorm: 826772 1 Tablet(s) PO QD No Start Date 06/2015 Inactive Actos 30 mg tablet RxNorm: 179169 1 Tablet(s) PO QD No Start Date Inactive promethazine 25 mg tablet RxNorm: 575974 1 Tablet(s) PO Q4H prn N/V No Start Date 07/21/2012 Inactive ProAir HFA 90 mcg/actuation Aerosol Inhaler RxNorm: 240112 2 Puff(s) INH Q4H prn dyspnea No Start Date 07/21/2012 Inactive Dexilant 60 mg Capsule RxNorm: 420945 1 Capsule(s) PO QD No Start D ate 01/27/2012 Inactive Lantus Solostar U-100 Insulin 100 unit/mL (3 mL) subcu taneous pen RxNorm: 633403 38 Unit(s) SQ QAM No Start Date 05/20/2018 Inactive Valium 10 mg Tab RxNorm: 351276 1 Tablet(s) PO QHS AND PRN No Start Date 10/24/2009 Inactive ZOFRAN ODT 8 mg disintegrating tablet RxNorm: 744834 1 Tablet(s ) PO Q6H No Start [...] Date S ervice Location MICROALBUMIN URINE RANDOM 39813 MICRL MG/L 14.9 MG/L Unknown MICROALBUMIN URINE RANDOM 62677 XM.ALB/CRE 6.1 MG/GCR Unknown MICROALBUMIN URINE RANDOM 33321 CREAT MG/D 243 MG/DL Unknown MICROALBUMIN URINE RANDOM 98188 CRE/100 2.43 G/L 03/05 Unknown PROTEIN/CREAT URINE WITH RATIO 69141|25027 PROT R U 14 MG/D L 04/01/2014 Unknown PROTEIN/CREAT URINE WITH RATIO 85688|21611 CREAT R U 254 MG/ DL 04/01/2014 Unknown PROTEIN/CREAT URINE WITH RATIO 92060|39370 XRATIO P/C 55 MG/ G 04/01/2014 Unknown URINALYSIS 77705 PROTEIN UR NEG 04/28/2010 Unknown URINALYSIS 05133 HEMGLBN UR NEG 04/28/2010 Unknown URINALYSIS 64276 GLUCOSE UR NEG 04/28/2010 Unknown URINALYSIS 34538 KETONES UR NEG 04/28/2010 Unknown URINALYSIS 37184 PH U 5.5 04/28/2010 Unknown URINALYSIS 23262 SP GR U 1.025 04/28/2010 Unknown URINALYSIS 05318 BILRUBN UR NEG 04/28/2010 Unknown URINALYSIS 32037 LEUKO UR 2+ 04/28/2010 Unknown URINALYSIS 84311 NITRITE UR NEG 04/28/2010 Unknown MICR CUL? [id number] WBC/HPF 6-10 04/28/2010 Unknown MICR CUL? [id number] RBC/HPF 0-5 04/28/2010 Unknown MICR CUL? [id number] HYAL CAST 16-25 04/28/2010 Unknown MICR CUL? [id number] SP TO YOLIE? NO 04/28/2010 Unknown MICR CUL? [id number] APPEAR UR NORMAL 04/28/2010 Unknown MICR CUL? [id number] SQ EPI/LPF FEW 04/28/2010 Unknown Procedures Procedure Codes Date URINALYSIS NONAUTO W/O SCOPE CPT-4: 09639 04/16/2019 URINE CULTURE/ COLONY COUNT CPT-4: 36187 04/16/2019 CEFTRIAXONE SODIUM INJECTION CPT-4: J0696 04/16/2019 THER/PROPH/DIAG INJ SC/IM CPT-4: 28287 04/16/2019 DRAIN/INJECT JOINT/BURSA CPT-4: 16160 01/22/2019 TRIAMCINOLONE ACET INJ NOS CPT-4: J3301 01/22/2019 DEXAMETHASONE SODIUM PHOS CPT-4: J1100 01/22/2019 URINE CULTURE/ COLONY COUNT CPT-4: 15643 01/07/2019 URINALYSIS NONAUTO W/O SCOPE CPT-4: 85460 01/07/2019 CEFTRIAXONE SODIUM INJECTION CPT-4: J0696 01/07/2019 THER/PROPH/DIAG INJ SC/IM CPT-4: 71474 01/07/2019 FLU VACC PRSV FREE INC ANTIG 65 AND OLDER CPT-4: 62912 12/24/2018 FLU VACC PRSV FREE INC ANTIG 65 AND OLDER CPT-4: 81608 12/24/2018 ADMIN INFLUENZA VIRUS VAC CPT-4: G0008 12/24/2018 THER/PROPH/DIAG INJ SC/IM CPT-4: 93162 11/04/2018 KETOROLAC TROMETHAMINE INJ CPT-4: J1885 11/04/2018 PROMETHAZINE HCL INJECTION CPT-4: J2550 11/04/2018 PPPS, subseq visit CPT-4: G0439 09/18/2018 THER/PROPH/DIAG INJ SC/IM CPT-4: 66441 04/01/2018 KETOROLAC TROMETHAMINE INJ CPT-4: J1885 04/01/2018 PROMETHAZINE HCL INJECTION CPT-4: J2550 04/01/2018 URINE CULTURE/ COLONY COUNT CPT-4: 86256 03/17/2018 URINALYSIS NONAUTO W/O SCOPE CPT-4: 71866 03/17/2018 FLU VACC PRSV FREE INC ANTIG 65 AND OLDER CPT-4: 33199 12/17/2017 PNEUMOCOCCAL VACC 23 RANDALL IM CPT-4: 84596 12/17/2017 ADMIN INFLUENZA VIRUS VAC CPT-4: G0008 12/17/2017 ADMIN PNEUMOCOCCAL VACCINE CPT-4: G0009 12/17/2017 PPPS, subseq visit CPT-4: G0439 09/17/2017 THER/PROPH/DIAG INJ SC/IM CPT-4: 40197 08/26/2017 KETOROLAC TROMETHAMINE INJ CPT-4: J1885 08/26/2017 PROMETHAZINE HCL INJECTION CPT-4: J2550 08/26/2017 URINALYSIS NONAUTO W/O SCOPE CPT-4: 73066 07/19/2017 URINE CULTURE/ COLONY COUNT CPT-4: 95303 07/19/2017 CEFTRIAXONE SODIUM INJECTION CPT-4: J0696 07/19/2017 THER/PROPH/DIAG INJ SC/IM CPT-4: 57536 07/19/2017 THER/PROPH/DIAG INJ SC/IM CPT-4: 17471 07/19/2017 TRIAMCINOLONE ACET INJ NOS CPT-4: J3301 07/19/2017 PRESCRIP TRANSMIT VIA ERX SY CPT-4: G8553 05/07/2017 PRESCRIP TRANSMIT VIA ERX SY CPT-4: G8553 02/22/2017 PRESCRIP TRANSMIT VIA ERX SY CPT-4: G8553 01/23/2017 FLU VACC PRSV FREE INC ANTIG 65 AND OLDER CPT-4: 73539 12/20/2016 PNEUMOCOCCAL VACC 13 RANDALL IM CPT-4: 91191 12/20/2016 ADMIN INFLUENZA VIRUS VAC CPT-4: G0008 12/20/2016 ADMIN PNEUMOCOCCAL VACCINE CPT-4: G0009 12/20/2016 URINALYSIS NONAUTO W/O SCOPE CPT-4: 68288 10/08/2016 URINE CULTURE/ COLONY COUNT CPT-4: 02237 10/08/2016 PRESCRIP TRANSMIT VIA ERX SY CPT-4: G8553 10/08/2016 PRESCRIP TRANSMIT VIA ERX SY CPT-4: G8553 09/19/2016 PRESCRIP TRANSMIT VIA ERX SY CPT-4: G8553 08/20/2016 PRESCRIP TRANSMIT VIA ERX SY CPT-4: G8553 02/29/2016 KETOROLAC TROMETHAMINE INJ CPT-4: J1885 02/02/2016 THER/PROPH/DIAG INJ SC/IM CPT-4: 45248 02/02/2016 PROMETHAZINE HCL INJECTION CPT-4: J2550 02/02/2016 PRESCRIP TRANSMIT VIA ERX SY CPT-4: G8553 02/02/2016 FLU VACC PRSV FREE INC ANTIG 65 AND OLDER CPT-4: 30123 01/05/2016 PPPS, subseq visit CPT-4: G0439 01/05/2016 ADMIN INFLUENZA VIRUS VAC CPT-4: G0008 01/05/2016 URINE CULTURE/ COLONY COUNT CPT-4: 42888 12/05/2015 URINALYSIS NONAUTO W/O SCOPE CPT-4: 58545 12/05/2015 PRESCRIP TRANSMIT VIA ERX SY CPT-4: G8553 12/05/2015 PRESCRIP TRANSMIT VIA ERX SY CPT-4: G8553 10/26/2015 URINALYSIS NONAUTO W/O SCOPE CPT-4: 06903 10/05/2015 URINE CULTURE/ COLONY COUNT CPT-4: 53828 10/05/2015 PRESCRIP TRANSMIT VIA ERX SY CPT-4: G8553 10/05/2015 SERVICE REQUIRED FOR PMD CPT-4: G0372 09/15/2015 PRESCRIP TRANSMIT VIA ERX SY CPT-4: G8553 09/15/2015 SPECIAL REPORTS OR FORMS CPT-4: 39876 08/25/2015 PRESCRIP TRANSMIT VIA ERX SY CPT-4: G8553 07/05/2015 URINALYSIS NONAUTO W/O SCOPE CPT-4: 70738 03/30/2015 ASSAY, GLUCOSE, BLOOD QUANT CPT-4: 79803 03/30/2015 URINE CULTURE/ COLONY COUNT CPT-4: 43797 03/30/2015 PRESCRIP TRANSMIT VIA ERX SY CPT-4: G8553 03/30/2015 PRESCRIP TRANSMIT VIA ERX SY CPT-4: G8553 02/03/2015 FLU VACC PRSV FREE INC ANTIG 65 AND OLDER CPT-4: 49723 12/29/2014 ADMIN INFLUENZA VIRUS VAC CPT-4: G0008 12/29/2014 PRESCRIP TRANSMIT VIA ERX SY CPT-4: G8553 12/29/2014 PRESCRIP TRANSMIT VIA ERX SY CPT-4: G8553 09/02/2014 PROTEIN/CREAT URINE WITH RATIO CPT-4: 62599|19079 5 MICROALBUMIN QUANTITATIVE CPT-4: 16519 04/01/2014 PRESCRIP TRANSMIT VIA ERX SY CPT-4: G8553 03/16/2014 PRESCRIP TRANSMIT VIA ERX SY CPT-4: G8553 03/09/2014 THER/PROPH/DIAG INJ SC/IM CPT-4: 71484 03/01/2014 TRIAMCINOLONE ACET INJ NOS CPT-4: J3301 03/01/2014 PRESCRIP TRANSMIT VIA ERX SY CPT-4: G8553 02/09/2014 URINE CULTURE/ COLONY COUNT CPT-4: 67616 10/30/2013 URINALYSIS NONAUTO W/O SCOPE CPT-4: 20325 10/21/2013 URINE CULTURE/ COLONY COUNT CPT-4: 23448 10/21/2013 DESTRUCT PREMALG LESION (Cryosurgery) CPT-4: 23311 PRESCRIP TRANSMIT VIA ERX SY CPT-4: G8553 10/05/2013 URINALYSIS NONAUTO W/O SCOPE CPT-4: 54743 08/04/2013 URINE CULTURE/ COLONY COUNT CPT-4: 85688 08/04/2013 PRESCRIP TRANSMIT VIA ERX SY CPT-4: G8553 08/04/2013 THER/PROPH/DIAG INJ SC/IM CPT-4: 74033 07/13/2013 TRIAMCINOLONE ACET INJ NOS CPT-4: J3301 07/13/2013 PRESCRIP TRANSMIT VIA ERX SY CPT-4: G8553 05/27/2013 URINALYSIS NONAUTO W/O SCOPE CPT-4: 56696 05/25/2013 URINE CULTURE/ COLONY COUNT CPT-4: 96837 05/25/2013 THER/PROPH/DIAG INJ SC/IM CPT-4: 80399 05/04/2013 VITAMIN B12 INJECTION CPT-4: J3420 05/04/2013 THER/PROPH/DIAG INJ SC/IM CPT-4: 42377 04/17/2013 VITAMIN B12 INJECTION CPT-4: J3420 04/17/2013 THER/PROPH/DIAG INJ SC/IM CPT-4: 55558 04/17/2013 METHYLPREDNISOLONE 40 MG INJ CPT-4: J1030 04/17/2013 TRIAMCINOLONE ACET INJ NOS CPT-4: J3301 04/17/2013 URINALYSIS NONAUTO W/O SCOPE CPT-4: 40778 04/06/2013 URINE CULTURE/ COLONY COUNT CPT-4: 15006 04/06/2013 PRESCRIP TRANSMIT VIA ERX SY CPT-4: G8553 04/06/2013 KETOROLAC TROMETHAMINE INJ CPT-4: J1885 06/25/2012 PROMETHAZINE HCL INJECTION CPT-4: J2550 06/25/2012 THER/PROPH/DIAG INJ SC/IM CPT-4: 87068 06/25/2012 THER/PROPH/DIAG INJ SC/IM CPT-4: 20799 06/24/2012 METHYLPREDNISOLONE 40 MG INJ CPT-4: J1030 06/24/2012 TRIAMCINOLONE ACET INJ NOS CPT-4: J3301 06/24/2012 URINE CULTURE/ COLONY COUNT CPT-4: 65737 06/24/2012 THER/PROPH/DIAG INJ SC/IM CPT-4: 28959 05/20/2012 KETOROLAC TROMETHAMINE INJ CPT-4: J1885 05/20/2012 THER/PROPH/DIAG INJ SC/IM CPT-4: 89309 05/20/2012 PROMETHAZINE HCL INJECTION CPT-4: J2550 05/20/2012 DRAIN/INJECT JOINT/BURSA CPT-4: 47415 02/13/2012 METHYLPREDNISOLONE 40 MG INJ CPT-4: J1030 02/13/2012 TRIAMCINOLONE ACET INJ NOS CPT-4: J3301 02/13/2012 THER/PROPH/DIAG INJ SC/IM CPT-4: 81061 11/14/2011 METHYLPREDNISOLONE 40 MG INJ CPT-4: J1030 11/14/2011 TRIAMCINOLONE ACET INJ NOS CPT-4: J3301 11/14/2011 THER/PROPH/DIAG INJ SC/IM CPT-4: 01628 09/12/2011 KETOROLAC TROMETHAMINE INJ CPT-4: J1885 09/12/2011 THER/PROPH/DIAG INJ SC/IM CPT-4: 08815 08/09/2011 METHYLPREDNISOLONE 40 MG INJ CPT-4: J1030 08/09/2011 TRIAMCINOLONE ACET INJ NOS CPT-4: J3301 08/09/2011 URINE CULTURE/ COLONY COUNT CPT-4: 97504 07/03/2011 URINE CULTURE/ COLONY COUNT CPT-4: 94461 06/04/2011 THER/PROPH/DIAG INJ SC/IM CPT-4: 85239 05/03/2011 METHYLPREDNISOLONE 40 MG INJ CPT-4: J1030 05/03/2011 TRIAMCINOLONE ACET INJ NOS CPT-4: J3301 05/03/2011 URINALYSIS NONAUTO W/O SCOPE CPT-4: 75770 01/24/2011 URINE CULTURE/ COLONY COUNT CPT-4: 76440 01/24/2011 FLUZONE, 5ML (Medicare) CPT-4: Q2038 01/02/2011 ADMIN INFLUENZA VIRUS VAC CPT-4: G0008 01/02/2011 ASSAY, GLUCOSE, BLOOD QUANT CPT-4: 66302 12/07/2010 URINE CULTURE/ COLONY COUNT CPT-4: 11513 11/02/2010 THER/PROPH/DIAG INJ SC/IM CPT-4: 87201 10/18/2010 METHYLPREDNISOLONE 40 MG INJ CPT-4: J1030 10/18/2010 TRIAMCINOLONE ACET INJ NOS CPT-4: J3301 10/18/2010 TRIAMCINOLONE ACET INJ NOS CPT-4: J3301 05/11/2010 METHYLPREDNISOLONE 40 MG INJ CPT-4: J1030 05/11/2010 THER/PROPH/DIAG INJ SC/IM CPT-4: 37355 05/11/2010 TRIAMCINOLONE ACET INJ NOS CPT-4: J3301 02/09/2010 METHYLPREDNISOLONE 40 MG INJ CPT-4: J1030 02/09/2010 THER/PROPH/DIAG INJ SC/IM CPT-4: 69723 02/09/2010 SERVICE REQUIRED FOR PMD CPT-4: G0372 02/09/2010 FLU VACCINE 3 YRS & > IM UP 64 CPT-4: 67685 0 PNEUMOCOCCAL VACC 23 RANDALL IM CPT-4: 71132 12/07/2009 ADMIN INFLUENZA VIRUS VAC CPT-4: G0008 12/07/2009 ADMIN PNEUMOCOCCAL VACCINE CPT-4: G0009 12/07/2009 TRIAMCINOLONE ACET INJ NOS CPT-4: J3301 05/26/2009 THER/PROPH/DIAG INJ SC/IM CPT-4: 21497 05/26/2009 METHYLPREDNISOLONE 80 MG INJ CPT-4: J1040 [...] 1: 114/72 Code: 8480-6 BMI: 37.8 Code: 71451-7 Heart Rate 1: 72 bpm Height: 5'3" [...] 1: 106/68 Code: 8480-6 BMI: 35.7 Code: 25710-6 Heart Rate 1: 72 bpm Height: 5'4" Respiratory Rate: 20 bpm SpO2: 98% Tempera ture: 36.7 (C) / 98.0 (F) Weight: 208 lbs 04/16/2018 Blood Pressure 1: 132/82 Code: 8480-6 BMI: 37.9 Code: 04807-7 Heart Rate 1: 72 bpm Height: 5'4" Respiratory Rate: 20 bpm SpO2: 96% Tempera ture: 37.1 (C) / 98.8 (F) Weight: 221 lbs 04/01/2018 Blood Pressure 1: 150/90 Code: 8480-6 Heart Rate 1: 72 bpm Respiratory Rate: 22 bpm SpO2: 95% Temperature: 36.4 (C) / 97.6 (F) We ight: 216 lbs 03/06/2018 Blood Pressure 1: 126/78 Code: 8480-6 BMI: 37.4 Code: 13791-6 Heart Rate 1: 68 bpm Height: 5'4" [...] ight: 222 lbs 12/25/2017 BMI: 37.8 Code: 24618-8 Heart Rate 1: 76 bpm Height: 5 '4" Respiratory Rate: 20 bpm SpO2: 96% Temperature: 37.3 (C) / 99.2 (F) Weight: 220 lbs 12/17/2017 Blood Pressure 1: 132/78 Code: 8480-6 BMI: 37.2 Code: 46250-6 Heart Rate 1: 88 bpm Height: 5'4" Respiratory Rate: 20 bpm SpO2: 96% Tempera ture: 37.3 (C) / 99.2 (F) Weight: 217 lbs 10/30/2017 Blood Pressure 1: 114/68 Code: 8480-6 BMI: 36.4 Code: 16408-2 Heart Rate 1: 72 bpm Height: 5'4" Respiratory Rate: 22 bpm SpO2: 96% Tempera ture: 36.8 (C) / 98.2 (F) Weight: 212 lbs 10/23/2017 Blood Pressure 1: 124/78 Code: 8480-6 Heart Rate 1: 72 bpm Respiratory Rate: 24 bpm SpO2: 94% Temperature: 36.6 (C) / 97.9 (F) We ight: 212 lbs 09/17/2017 Blood Pressure 1: 128/82 Code: 8480-6 BMI: 37.4 Code: 45197-7 Heart Rate 1: 72 bpm Height: 5'4" Respiratory Rate: 20 bpm SpO2: 96% Tempera ture: 37.0 (C) / 98.6 (F) Weight: 218 lbs 07/19/2017 Blood Pressure 1: 136/84 Code: 8480-6 BMI: 36.6 Code: 92952-0 Heart Rate 1: 88 bpm Height: 5'4" Respiratory Rate: 20 bpm SpO2: 97% Tempera ture: 36.7 (C) / 98.0 (F) Weight: 213 lbs 05/29/2017 Blood Pressure 1: 136/82 Code: 8480-6 BMI: 36.7 Code: 18080-8 Heart Rate 1: 72 bpm Height: 5'4" Respiratory Rate: 20 bpm SpO2: 97% Tempera ture: 36.9 (C) / 98.4 (F) Weight: 214 lbs 05/07/2017 Blood Pressure 1: 122/80 Code: 8480-6 BMI: 37.1 Code: 27953-1 Heart Rate 1: 80 bpm Height: 5'4" Respiratory Rate: 24 bpm SpO2: 96% Tempera ture: 36.1 (C) / 97.0 (F) Weight: 216 lbs 03/18/2017 BMI: 36.7 Code: 13249-0 Heart Rate 1: 80 bpm Height: 5 '4" Respiratory Rate: 22 bpm SpO2: 95% Temperature: 36.9 (C) / 98.4 (F) Weight: 214 lbs 02/27/2017 Blood Pressure 1: 146/94 Code: 8480-6 BMI: 36.6 Code: 85334-2 Heart Rate 1: 76 bpm Height: 5'4" Respiratory Rate: 22 bpm SpO2: 97% Tempera ture: 36.6 (C) / 97.9 (F) Weight: 213 lbs 02/22/2017 Blood Pressure 1: 126/90 Code: 8480-6 BMI: 36.4 Code: 80440-0 Heart Rate 1: 84 bpm Height: 5'4" Respiratory Rate: 22 bpm SpO2: 95% Tempera ture: 36.9 (C) / 98.4 (F) Weight: 212 lbs 01/23/2017 Blood Pressure 1: 146/82 Code: 8480-6 BMI: 37.6 Code: 95747-9 Heart Rate 1: 96 bpm Height: 5'4" Respiratory Rate: 20 bpm SpO2: 96% Tempera ture: 36.9 (C) / 98.4 (F) Weight: 219 lbs 12/20/2016 Blood Pressure 1: 126/70 Code: 8480-6 BMI: 37.2 Code: 89004-7 Heart Rate 1: 76 bpm Height: 5'4" Respiratory Rate: 22 bpm SpO2: 95% Tempera ture: 36.6 (C) / 97.8 (F) Weight: 217 lbs 10/08/2016 Blood Pressure 1: 128/82 Code: 8480-6 BMI: 36.9 Code: 89330-4 Heart Rate 1: 76 bpm Height: 5'4" Respiratory Rate: 20 bpm SpO2: 95% Tempera ture: 37.0 (C) / 98.6 (F) Weight: 215 lbs 09/19/2016 Blood Pressure 1: 144/78 Code: 8480-6 BMI: 37.8 Code: 97716-4 Heart Rate 1: 76 bpm Height: 5'4" Respiratory Rate: 22 bpm SpO2: 95% Tempera ture: 37.0 (C) / 98.6 (F) Weight: 220 lbs 08/20/2016 Blood Pressure 1: 140/86 Code: 8480-6 BMI: 37.4 Code: 08661-7 Heart Rate 1: 80 bpm Height: 5'4" Respiratory Rate: 20 bpm SpO2: 95% Tempera ture: 36.9 (C) / 98.4 (F) Weight: 218 lbs 06/19/2016 Blood Pressure 1: 12478 Code: 8480-6 BMI: 37.8 Code: 49889-1 Heart Rate 1: 74 bpm Height: 5'4" Respiratory Rate: 24 bpm SpO2: 96% Tempera ture: 36.9 (C) / 98.4 (F) Weight: 220 lbs 06/04/2016 Blood Pressure 1: 124/78 Code: 8480-6 BMI: 38.8 Code: 04488-6 Heart Rate 1: 72 bpm Height: 5'4" Respiratory Rate: 24 bpm SpO2: 95% Tempera ture: 36.8 (C) / 98.2 (F) Weight: 226 lbs 05/02/2016 Blood Pressure 1: 136/90 Code: 8480-6 BMI: 37.6 Code: 65109-4 Heart Rate 1: 72 bpm Height: 5'4" Respiratory Rate: 24 bpm SpO2: 96% Tempera ture: 36.9 (C) / 98.4 (F) Weight: 219 lbs 04/03/2016 Blood Pressure 1: 126/78 Code: 8480-6 BMI: 38.1 Code: 17944-2 Heart Rate 1: 72 bpm Height: 5'4" Respiratory Rate: 22 bpm SpO2: 94% Tempera ture: 36.9 (C) / 98.4 (F) Weight: 222 lbs 02/29/2016 Blood Pressure 1: 132/78 Code: 8480-6 Heart Rate 1: 78 bpm Height: Respiratory Rate: 24 bpm SpO2: 95% Temperature: 36.4 (C) / 97.6 (F) We ight: 02/02/2016 Blood Pressure 1: 124/78 Code: 8480-6 BMI: 37.6 Code: 14116-8 Heart Rate 1: 76 bpm Height: 5'4" Respiratory Rate: 20 bpm SpO2: 95% Tempera ture: 36.8 (C) / 98.2 (F) Weight: 219 lbs 01/05/2016 Blood Pressure 1: 126/70 Code: 8480-6 BMI: 37.1 Code: 16447-0 Heart Rate 1: 76 bpm Height: 5'4" Respiratory Rate: 20 bpm Temperature: 36 .6 (C) / 97.8 (F) Weight: 216 lbs 12/05/2015 Blood Pressure 1: 126/72 Code: 8480-6 BMI: 36.9 Code: 45745-7 Heart Rate 1: 92 bpm Height: 5'4" Respiratory Rate: 20 bpm Temperature: 36 .7 (C) / 98.1 (F) Weight: 215 lbs 10/26/2015 Blood Pressure 1: 142/80 Code: 8480-6 BMI: 36.4 Code: 07169-6 Heart Rate 1: 82 bpm Height: 5'4" Respiratory Rate: 24 bpm SpO2: 92% Tempera ture: 35.9 (C) / 96.7 (F) Weight: 212 lbs 10/05/2015 Blood Pressure 1: 136/82 Code: 8480-6 Heart Rate 1: 80 bpm Respiratory Rate: 18 bpm SpO2: 98% Temperature: 35.7 (C) / 96.3 (F) We ight: 214 lbs 09/15/2015 Blood Pressure 1: 116/80 Code: 8480-6 BMI: 34.6 Code: 32837-9 Heart Rate 1: 76 bpm Height: 5'6" Respiratory Rate: 20 bpm Temperature: 36 .6 (C) / 97.9 (F) Weight: 211 lbs 08/24/2015 Blood Pressure 1: 124/80 Code: 8480-6 BMI: 34.1 Code: 40227-2 Heart Rate 1: 68 bpm Height: 5'6" Respiratory Rate: 20 bpm Temperature: 36 .8 (C) / 98.3 (F) Weight: 208 lbs 07/05/2015 Blood Pressure 1: 114/78 Code: 8480-6 BMI: 33.9 Code: 44802-1 Heart Rate 1: 80 bpm Height: 5'6" Respiratory Rate: 20 bpm Temperature: 36 .6 (C) / 97.9 (F) Weight: 207 lbs 06/06/2015 Blood Pressure 1: 122/78 Code: 8480-6 BMI: 34.1 Code: 02073-8 Heart Rate 1: 76 bpm Height: 5'6" Respiratory Rate: 24 bpm SpO2: 96% Tempera ture: 36.4 (C) / 97.6 (F) Weight: 208 lbs 05/23/2015 Blood Pressure 1: 124/78 Code: 8480-6 Heart Rate 1: 76 bpm Respiratory Rate: 24 bpm SpO2: 93% Temperature: 36.8 (C) / 98.2 (F) We ight: 212 lbs 05/05/2015 Blood Pressure 1: 136/80 Code: 8480-6 BMI: 35.4 Code: 66989-5 Heart Rate 1: 76 bpm Height: 5'6" Respiratory Rate: 28 bpm Temperature: 37 .0 (C) / 98.6 (F) Weight: 216 lbs 03/30/2015 Blood Pressure 1: 132/86 Code: 8480-6 BMI: 35.2 Code: 27787-2 Heart Rate 1: 84 bpm Height: 5'6" Respiratory Rate: 24 bpm Temperature: 36 .7 (C) / 98.0 (F) Weight: 215 lbs 02/03/2015 Blood Pressure 1: 122/74 Code: 8480-6 BMI: 35.7 Code: 72032-7 Heart Rate 1: 84 bpm Height: 5'6" Respiratory Rate: 20 bpm Temperature: 36 .9 (C) / 98.5 (F) Weight: 218 lbs 12/29/2014 Blood Pressure 1: 132/80 Code: 8480-6 BMI: 35.1 Code: 27417-4 Heart Rate 1: 80 bpm Height: 5'6" Respiratory Rate: 20 bpm Temperature: 36 .6 (C) / 97.8 (F) Weight: 214 lbs 09/02/2014 Blood Pressure 1: 128/92 Code: 8480-6 BMI: 34.7 Code: 22169-8 Heart Rate 1: 84 bpm Height: 5'6" Respiratory Rate: 26 bpm Temperature: 36 .8 (C) / 98.2 (F) Weight: 212 lbs 08/25/2014 Blood Pressure 1: 124/80 Code: 8480-6 BMI: 34.7 Code: 14947-9 Heart Rate 1: 78 bpm Height: 5'6" Respiratory Rate: 22 bpm SpO2: 97% Tempera ture: 36.6 (C) / 97.8 (F) Weight: 212 lbs 04/01/2014 Blood Pressure 1: 142/84 Code: 8480-6 BMI: 34.4 Code: 61515-9 Heart Rate 1: 74 bpm Height: 5'5" Respiratory Rate: 20 bpm Temperature: 36 .4 (C) / 97.6 (F) Weight: 207 lbs 03/16/2014 Blood Pressure 1: 142/90 Code: 8480-6 BMI: 34.6 Code: 68865-9 Heart Rate 1: 76 bpm Height: 5'5" Respiratory Rate: 24 bpm Temperature: 36 .5 (C) / 97.7 (F) Weight: 208 lbs 03/09/2014 Blood Pressure 1: 116/70 Code: 8480-6 BMI: 35.3 Code: 63952-1 Heart Rate 1: 72 bpm Height: 5'5" [...] 1: 128/86 Code: 8480-6 BMI: 34.3 Code: 80347-7 Heart Rate 1: 84 bpm Height: 5'5" Respiratory Rate: 20 bpm Temperature: 36 .7 (C) / 98.0 (F) Weight: 206 lbs 12/23/2013 Blood Pressure 1: 122/70 Code: 8480-6 BMI: 34.3 Code: 64028-2 Heart Rate 1: 68 bpm Height: 5'5" Respiratory Rate: 20 bpm Temperature: 36 .8 (C) / 98.2 (F) Weight: 206 lbs 10/05/2013 Blood Pressure 1: 118/76 Code: 8480-6 BMI: 34.1 Code: 67459-8 Heart Rate 1: 68 bpm Height: 5'5" Respiratory Rate: 20 bpm SpO2: 98% Tempera ture: 36.6 (C) / 97.9 (F) Weight: 205 lbs 08/04/2013 Blood Pressure 1: 126/82 Code: 8480-6 BMI: 33.3 Code: 06910-7 Heart Rate 1: 76 bpm Height: 5'5" Respiratory Rate: 20 bpm Temperature: 36 .8 (C) / 98.2 (F) Weight: 200 lbs 07/03/2013 Blood Pressure 1: 124/82 Code: 8480-6 BMI: 33.3 Code: 17017-8 Heart Rate 1: 72 bpm Height: 5'5" Respiratory Rate: 22 bpm Temperature: 36 .1 (C) / 97.0 (F) Weight: 200 lbs 05/27/2013 Blood Pressure 1: 126/82 Code: 8480-6 Heart Rate 1: 74 bpm Respiratory Rate: 20 bpm Temperature: 36.0 (C) / 96.8 (F) Weight: 199 lbs 04/06/2013 Blood Pressure 1: 118/80 Code: 8480-6 BMI: 35.2 Code: 70083-8 Heart Rate 1: 80 bpm Height: 5'4" Respiratory Rate: 20 bpm Temperature: 37 .4 (C) / 99.3 (F) Weight: 205 lbs 11/10/2012 Blood Pressure 1: 128/82 Code: 8480-6 Heart Rate 1: 84 bpm Respiratory Rate: 20 bpm Temperature: 36.7 (C) / 98.0 (F) Weight: 199 lbs 09/02/2012 Blood Pressure 1: 116/82 Code: 8480-6 BMI: 34.2 Code: 52141-8 Heart Rate 1: 88 bpm Height: 5'4" Respiratory Rate: 22 bpm Temperature: 36 .6 (C) / 97.8 (F) Weight: 199 lbs 08/04/2012 Blood Pressure 1: 128/74 Code: 8480-6 BMI: 34.0 Code: 73888-3 Heart Rate 1: 92 bpm Height: 5'4" Respiratory Rate: 20 bpm Temperature: 36 .4 (C) / 97.5 (F) Weight: 198 lbs 07/21/2012 Blood Pressure 1: 124/86 Code: 8480-6 Heart Rate 1: 116 bpm Respiratory Rate: 24 bpm Temperature: 36.8 (C) / 98.2 (F) 07/02/2012 Blood Pressure 1: 116/88 Code: 8480-6 BMI: 33.6 Code: 76924-2 Heart Rate 1: 76 bpm Height: 5'4" Respiratory Rate: 20 bpm Temperature: 36 .8 (C) / 98.3 (F) Weight: 196 lbs 06/24/2012 Blood Pressure 1: 124/80 Code: 8480-6 BMI: 34.3 Code: 14158-3 Heart Rate 1: 72 bpm Height: 5'4" SpO2: 96% Temperature: 36.3 (C) / 97.3 (F) Weight: 200 lbs 05/20/2012 Blood Pressure 1: 116/88 Code: 8480-6 BMI: 33.8 Code: 45869-2 Heart Rate 1: 80 bpm Height: 5'4" Respiratory Rate: 22 bpm Temperature: 36 .9 (C) / 98.4 (F) Weight: 197 lbs 05/08/2012 Blood Pressure 1: 128/86 Code: 8480-6 BMI: 33.8 Code: 26470-4 Heart Rate 1: 76 bpm Height: 5'4" Respiratory Rate: 26 bpm SpO2: 95% Tempera ture: 36.1 (C) / 97.0 (F) Weight: 197 lbs 04/22/2012 Blood Pressure 1: 106/64 Code: 8480-6 BMI: 33.8 Code: 48099-7 Heart Rate 1: 70 bpm Height: 5'4" Temperature: 36.1 (C) / 97.0 (F) Weight: 197 lbs 02/13/2012 Blood Pressure 1: 126/82 Code: 8480-6 BMI: 34.7 Code: 89490-2 Heart Rate 1: 64 bpm Height: 5'4" Respiratory Rate: 20 bpm Temperature: 36 .6 (C) / 97.8 (F) Weight: 202 lbs 01/28/2012 Blood Pressure 1: 116/80 Code: 8480-6 BMI: 34.7 Code: 00519-8 Heart Rate 1: 76 bpm Height: 5'4" Respiratory Rate: 20 bpm Temperature: 36 .8 (C) / 98.3 (F) Weight: 202 lbs 12/26/2011 Blood Pressure 1: 132/82 Code: 8480-6 BMI: 36.0 Code: 83899-2 Heart Rate 1: 68 bpm Height: 5'4" Respiratory Rate: 22 bpm Temperature: 36 .7 (C) / 98.0 (F) Weight: 210 lbs 11/14/2011 Blood Pressure 1: 124/80 Code: 8480-6 BMI: 36.4 Code: 33162-1 Heart Rate 1: 76 bpm Height: 5'4" Respiratory Rate: 20 bpm Temperature: 36 .8 (C) / 98.2 (F) Weight: 212 lbs 09/12/2011 Blood Pressure 1: 108/74 Code: 8480-6 BMI: 37.1 Code: 61068-3 Heart Rate 1: 72 bpm Height: 5'4" Respiratory Rate: 20 bpm Temperature: 37 .0 (C) / 98.6 (F) Weight: 216 lbs 08/15/2011 Blood Pressure 1: 122/80 Code: 8480-6 BMI: 36.9 Code: 38241-6 Heart Rate 1: 76 bpm Height: 5'4" Respiratory Rate: 20 bpm Temperature: 36 .2 (C) / 97.1 (F) Weight: 215 lbs 08/09/2011 Blood Pressure 1: 112/78 Code: 8480-6 BMI: 36.9 Code: 37953-9 Heart Rate 1: 68 bpm Height: 5'4" Respiratory Rate: 20 bpm Temperature: 36 .7 (C) / 98.0 (F) Weight: 215 lbs 07/03/2011 Blood Pressure 1: 140/94 Code: 8480-6 BMI: 36.2 Code: 55164-8 Heart Rate 1: 68 bpm Height: 5'4" Temperature: 36.0 (C) / 96.8 (F) Weight: 211 lbs 06/04/2011 Blood Pressure 1: 124/70 Code: 8480-6 BMI: 36.7 Code: 08954-9 Heart Rate 1: 68 bpm Height: 5'4" Respiratory Rate: 20 bpm Temperature: 36 .6 (C) / 97.9 (F) Weight: 214 lbs 05/03/2011 Blood Pressure 1: 130/76 Code: 8480-6 BMI: 36.4 Code: 17413-2 Heart Rate 1: 74 bpm Height: 5'5" Temperature: 36.2 (C) / 97.2 (F) Weight: 219 lbs 04/05/2011 Blood Pressure 1: 124/86 Code: 8480-6 BMI: 35.9 Code: 43343-6 Heart Rate 1: 76 bpm Height: 5'6" Respiratory Rate: 22 bpm Temperature: 36 .3 (C) / 97.3 (F) Weight: 219 lbs 03/08/2011 Blood Pressure 1: 112/78 Code: 8480-6 BMI: 35.1 Code: 59175-0 Heart Rate 1: 80 bpm Height: 5'6" Respiratory Rate: 26 bpm Temperature: 36 .9 (C) / 98.4 (F) Weight: 214 lbs 01/24/2011 Blood Pressure 1: 110/82 Code: 8480-6 BMI: 35.6 Code: 45041-2 Heart Rate 1: 80 bpm Height: 5'6" Temperature: 36.1 (C) / 97.0 (F) Weight: 217 lbs 01/02/2011 Blood Pressure 1: 106/72 Code: 8480-6 BMI: 35.6 Code: 13027-4 Heart Rate 1: 76 bpm Height: 5'6" [...] 1: 120/74 Code: 8480-6 BMI: 35.9 Code: 15446-7 Heart Rate 1: 72 bpm Height: 5'5" Temperature: 36.3 (C) / 97.4 (F) Weight: 216 lbs 09/19/2010 Blood Pressure 1: 124/80 Code: 8480-6 BMI: 35.4 Code: 71767-4 Heart Rate 1: 76 bpm Height: 5'5" [...] 1: 122/78 Code: 8480-6 BMI: 37.4 Code: 01704-9 Heart Rate 1: 84 bpm Height: 5'5" [...] 07/24/16 follow up 06/19/2016 1 week hospital [facility] owup follow up 06/04/2016 1mo fwup follow up 05/02/2016 Hospital fwup follow up 04/03/2016 dyspnea 02/29/2016 low grade 99s follow up 02/02/2016 ER fwup diabetes mellitus 01/05/2016 painful urination 12/05/2015 follow up 10/26/2015 ER visit from at [facility] for COPD Exacerbation follow up 10/05/2015 ER Visit gait abnormality 09/15/2015 Patient requesting kelly pineda paperwork to be filled out disturbances of thinking 08/24/2015 follow up 07/05/2015 4wk fwup follow up 06/06/2015 [facility] fw cough 05/23/2015 follow up 05/05/2015 dyspnea [...] up 10/18/[address] Marcela sagastume w [place], having increased allergy symptoms. Would like steroid [...] month f/u follow up 12/07/[address] [facility], done with PT--finished about 2wks [...] Hyperglycemia[ICD10: R73.9] Diagnosis: Edema[ICD10: R60.9] Belia Shi [email or web address] CPT-4: 21515 09/02/2019 OFFICE/OUTPATIENT VISIT EST Diagnosis: Fibromyalgia[ICD10: M79.7] Diagnosis: Muscle weakness[ICD10: M62.81] Diagnosis: Generalized pain[ICD10: R52] Diagnosis: Hypoxia[ICD10: R09.02] Diagnosis: Migraine[ICD10: G43.909] Belia [employer] CPT-4: 31606 08/25/2019 ([id number]) OFFICE/OUTPATIENT VISIT EST Diagnosis: Yawning[ICD10: R06.89] Diagnosis: LION (obstructive sleep apnea)[ICD10: G47.33] Pattie BRUNSON [employer] CPT-4: 76973 08/10/2019 ([id number]) OFFICE/OUTPATIENT VISIT EST Diagnosis: Pelvic pain in female[ICD10: R10.2] Diagnosis: Left leg swelling[ICD10: M79.89] Diagnosis: Dyspnea[ICD10: R06.00] Diagnosis: Constipation[ICD10: K59.00] Pattie BRUNSON [employer] CPT-4: 63615 08/04/2019 ([id number]) OFFICE/OUTPATIENT VISIT EST Diagnosis: Inspiratory stridor[ICD10: R06.1] Diagnosis: Diarrhea[ICD10: R19.7] Belia Reid [facility] CPT-4: 9921 3 07/06/2019 ([id number]) OFFICE/OUTPATIENT VISIT EST Diagnosis: Left leg swelling[ICD10: M79.89] Diagnosis: Dyspnea[ICD10: R06.00] Belia Reid [facility] CPT-4: 9921 3 06/24/2019 ([id number]) OFFICE/OUTPATIENT VISIT EST Diagnosis: Acute bronchitis[ICD10: J20.9] Diagnosis: Colitis[ICD10: K52.9] Belia REID [facility] CPT-4: 68908 06/16/2019 ([id number]) OFFICE/OUTPATIENT VISIT EST Diagnosis: Diarrhea[ICD10: R19.7] Diagnosis: Abdominal bloating[ICD10: R14.0] Belia Reid [facility] CPT- 4: 17479 06/08/2019 ([id number]) OFFICE/OUTPATIENT VISIT EST Diagnosis: Acute febrile illness[ICD10: R50.9] Diagnosis: Colitis[ICD10: K52.9] Belia Reid [facility] CPT-4: 87931 05/26/2019 ([id number]) OFFICE/OUTPATIENT VISIT EST Diagnosis: Chronic obstructive pulmonary disease, unspecified[ICD10: J44.9] Diagnosis: Pulmonary fibrosis[ICD10: J84.10] Diagnosis: Intermittent stridor[ICD10: R06.1] Diagnosis: Muscle weakness[ICD10: M62.81] Belia REID [facility] CPT-4: 60805 05/13/2019 ([id number]) OFFICE/OUTPATIENT VISIT EST Diagnosis: Stridor[ICD10: R06.1] Diagnosis: COUGH[ICD10: R05] Belia REID [facility] CPT-4: 61951 05/06/2019 ([id number]) OFFICE/OUTPATIENT VISIT EST Diagnosis: Stridor[ICD10: R06.1] Diagnosis: Muscle, jerky movements (uncontrolled)[ICD10: G25.5] Belia REID [facility] CPT-4: 40861 04/29/2019 ([id number]) OFFICE/OUTPATIENT VISIT EST Diagnosis: Upper respiratory infection[ICD10: J06.9] Diagnosis: Flank pain[ICD10: R10.9] Diagnosis: Weight gain[ICD10: R63.5] Pattie AMBRIZ DO [facility] CPT-4: 35582 04/16/2019 ([id number]) OFFICE/OUTPATIENT VISIT EST Diagnosis: Generalized pruritus[ICD10: L29.9] Belia REID [facility] CPT-4: 07829 04/08/2019 ([id number]) OFFICE/OUTPATIENT VISIT EST Diagnosis: Acute bursitis of left shoulder[ICD10: M75.52] Diagnosis: Cervicalgia[ICD10: M54.2] Diagnosis: Chest wall pain[ICD10: R07.89] Belia REID [facility] CPT-4: 90137 01/22/2019 ([id number]) OFFICE/OUTPATIENT VISIT EST Diagnosis: Abdominal pain[ICD10: R10.9] Diagnosis: Pyelonephritis[ICD10: N12] Pattie DOMINGUEZ [facility] CPT-4: 54254 01/07/2019 ([id number]) OFFICE/OUTPATIENT VISIT EST Diagnosis: Low back pain[ICD10: M54.5] Diagnosis: Left lumbar radiculopathy[ICD10: M54.16] Diagnosis: Left flank pain[ICD10: R10.9] Diagnosis: Left lower quadrant pain[ICD10: R10.32] Diagnosis: FLU VACCINE[ICD10: Z23] Belia FREDERICK [facility] CPT-4: 49372 12/24/2018 ([id number]) OFFICE/OUTPATIENT VISIT EST Diagnosis: Migraine, unspecified, not intractable, without status migrainosus[ICD10: G43.909] Diagnosis: Fibromyalgia[ICD10: M79.7] Belia DOMINGUEZ [facility] CPT-4: 72972 11/20/2018 ([id number]) OFFICE/OUTPATIENT VISIT EST Diagnosis: Migraine, unspecified, intractable, without status migrainosus[ICD10: G43.919] Diagnosis: Acute sinusitis, unspecified[ICD10: J01.90] Pattie REID DO [facility] CPT-4: 37977 11/04/2018 ([id number]) OFFICE/OUTPATIENT VISIT EST Diagnosis: Pain in left wrist[ICD10: M25.532] Diagnosis: Other dorsalgia[ICD10: M54.89] Pattie REID DO [facility] CPT-4: 79988 09/08/2018 ([id number]) OFFICE/OUTPATIENT VISIT EST Diagnosis: Acute stress reaction[ICD10: F43.0] Diagnosis: Pruritus, unspecified[ICD10: L29.9] 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, 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] Belia REID [facility] CPT-4: 71804 08/20/2018 ([id number]) OFFICE/OUTPATIENT VISIT EST Diagnosis: Hypotension due to drugs[ICD10: I95.2] Diagnosis: Paroxysmal atrial fibrillation[ICD10: I48.0] Diagnosis: Localized edema[ICD10: R60.0] Belia REID [facility] CPT-4: 91589 06/19/2018 ([id number]) OFFICE/OUTPATIENT VISIT EST Diagnosis: Generalized hyperhidrosis[ICD10: R61] Diagnosis: Essential (primary) hypertension[ICD10: I10] Diagnosis: Supraventricular tachycardia[ICD10: I47.1] Belia REID DO [facility] CPT-4: 64613 06/09/2018 ([id number]) OFFICE/OUTPATIENT VISIT EST Diagnosis: Stridor[ICD10: R06.1] Diagnosis: Dependence on supplemental oxygen[ICD10: Z99.81] Diagnosis: Weakness[ICD10: R53.1] Diagnosis: Supraventricular tachycardia[ICD10: I47.1] Belia REID DO [facility] CPT-4: 69114 05/21/2018 ([id number]) OFFICE/OUTPATIENT VISIT EST Diagnosis: Cervical disc disorder with radiculopathy, unspecified cervical region[ICD10: M50.10] Belia REID [facility] CPT-4: 31562 04/16/2018 ([id number]) OFFICE/OUTPATIENT VISIT EST Diagnosis: Migraine, unspecified, intractable, without status migrainosus[ICD10: G43.919] Diagnosis: Fibromyalgia[ICD10: M79.7] Pattie DOMINGUEZ [facility] CPT-4: 29155 04/01/2018 ([id number]) NURSE/OUTPATIENT VISIT EST Diagnosis: Hematuria, unspecified[ICD10: R31.9] Diagnosis: Dysuria[ICD10: R30.0] Belia REID [facility] CPT-4: 83963 03/17/2018 ([id number]) OFFICE/OUTPATIENT VISIT EST Diagnosis: Erythema intertrigo[ICD10: L30.4] Diagnosis: Chronic obstructive pulmonary disease with (acute) exacerbation[ICD10: J44.1] Diagnosis: Type 2 diabetes mellitus with hyperglycemia[ICD10: E11.65] Belia REID [facility] CPT-4: 72147 03/06/2018 ([id number]) OFFICE/OUTPATIENT VISIT EST Diagnosis: Cervicalgia[ICD10: M54.2] Pattie AMBRIZ [facility] CPT-4: 57800 02/05/2018 ([id number]) OFFICE/OUTPATIENT VISIT EST Diagnosis: Candidiasis of skin and nail[ICD10: B37.2] Diagnosis: Cervicalgia[ICD10: M54.2] Pattie AMBRIZ [facility] CPT-4: 69404 01/20/2018 ([id number]) OFFICE/OUTPATIENT VISIT EST Diagnosis: Pain in thoracic spine[ICD10: M54.6] Diagnosis: Radiculopathy, thoracic region[ICD10: M54.14] Belia REID [facility] CPT-4: 19337 12/25/2017 ([id number]) OFFICE/OUTPATIENT VISIT EST Diagnosis: Pain in thoracic spine[ICD10: M54.6] Diagnosis: Other muscle spasm[ICD10: M62.838] Diagnosis: FLU VACCINE[ICD10: Z23] Diagnosis: PNEUMOCOCCAL VACCINE[ICD10: Z23] Belia REID DO [facility] CPT-4: 24549 12/17/2017 ([id number]) OFFICE/OUTPATIENT VISIT EST Diagnosis: Chronic obstructive pulmonary disease with (acute) exacerbation[ICD10: J44.1] Belia REID DO [facility] CPT- 4: 24228 10/30/2017 ([id number]) OFFICE/OUTPATIENT VISIT EST Diagnosis: Chronic obstructive pulmonary disease with acute lower respiratory infection[ICD10: J44.0] Diagnosis: Mild intermittent asthma with (acute) exacerbation[ICD10: J45.21] Belia REID DO [facility] CPT-4: 52670 10/23/2017 ([id number]) NURSE/OUTPATIENT VISIT EST Diagnosis: Migraine, unspecified, not intractable, without status migrainosus[ICD10: G43.909] Belia REID DO [facility] CPT - 4: 84850 08/26/2017 ([id number]) OFFICE/OUTPATIENT VISIT EST Diagnosis: Urinary tract infection, site not specified[ICD10: N39.0] Diagnosis: Encounter for screening for osteoporosis[ICD10: Z13.820] Diagnosis: Encounter for screening mammogram for malignant neoplasm of breast[ICD10: Z12.31] Diagnosis: Acute bronchitis, unspecified[ICD10: J20.9] Pattie REID DO [facility] CPT-4: 02932 07/19/2017 ([id number]) OFFICE/OUTPATIENT VISIT EST Diagnosis: Rash and other nonspecific skin eruption[ICD10: R21] Pattie REID DO [facility] CPT-4: 51056 05/29/2017 ([id number]) OFFICE/OUTPATIENT VISIT EST Diagnosis: Diarrhea, unspecified[ICD10: R19.7] Diagnosis: Tinea corporis[ICD10: B35.4] Diagnosis: Tinea cruris[ICD10: B35.6] Diagnosis: Migraine, unspecified, not intractable, without status migrainosus[ICD10: G43.909] Belia SMITHER [facility] CPT - 4: 15112 05/07/2017 ([id number]) OFFICE/OUTPATIENT VISIT EST Diagnosis: Stridor[ICD10: R06.1] Diagnosis: Chronic obstructive pulmonary disease with (acute) exacerbation[ICD10: J44.1] Belia REID [facility] CPT- 4: 29276 03/18/2017 ([id number]) OFFICE/OUTPATIENT VISIT EST Diagnosis: Type 2 diabetes mellitus with hyperglycemia[ICD10: E11.65] Belia REID [facility] CPT-4: 49333 02/27/2017 OFFICE/OUTPATIENT VISIT EST Diagnosis: Type 2 diabetes mellitus with hyperglycemia[ICD10: E11.65] Pattie REID [facility] CPT-4: 91650 02/22/2017 ([id number]) OFFICE/OUTPATIENT VISIT EST Diagnosis: Urinary tract infection, site not specified[ICD10: N39.0] Diagnosis: Pneumonia, unspecified organism[ICD10: J18.9] Diagnosis: Type 2 diabetes mellitus with hyperglycemia[ICD10: E11.65] [facility] 99622 01/23/2017 ([id number]) OFFICE/OUTPATIENT VISIT EST Diagnosis: Type 2 diabetes mellitus with hyperglycemia[ICD10: E11.65] Diagnosis: Localized edema[ICD10: R60.0] Diagnosis: PNEUMOCOCCAL VACCINE[ICD10: Z23] Diagnosis: FLU VACCINE[ICD10: Z23] Belia [facility]ITH [facility] CPT-4: 34653 12/20/2016 OFFICE/OUTPATIENT VISIT EST Diagnosis: Pain in thoracic spine[ICD10: M54.6] Diagnosis: Low back pain[ICD10: M54.5] Diagnosis: Cervicalgia[ICD10: M54.2] Diagnosis: Cough[ICD10: R05] Celeste Ferreira BELIA REID [facility] CPT-4: 92564 10/08/2016 ([id number]) OFFICE/OUTPATIENT VISIT EST Diagnosis: Primary insomnia[ICD10: F51.01] Diagnosis: Migraine, unspecified, not intractable, without status migrainosus[ICD10: G43.909] Diagnosis: Type 2 diabetes mellitus with hyperglycemia[ICD10: E11.65] Belia REID DO [facility] CPT-4: 12074 09/19/2016 ([id number]) OFFICE/OUTPATIENT VISIT EST Diagnosis: Migraine, unspecified, not intractable, without status migrainosus[ICD10: G43.909] Diagnosis: Generalized abdominal pain[ICD10: R10.84] Diagnosis: Cough[ICD10: R05] Belia REID DO [facility] CPT-4: 63754 08/20/2016 ([id number]) OFFICE/OUTPATIENT VISIT EST Diagnosis: Chronic obstructive pulmonary disease, unspecified[ICD10: J44.9] Diagnosis: Stridor[ICD10: R06.1] Belia REID DO [facility] CPT-4: 08522 06/19/2016 ([id number]) OFFICE/OUTPATIENT VISIT EST Diagnosis: Chronic obstructive pulmonary disease, unspecified[ICD10: J44.9] Diagnosis: Personal history of urinary (tract) infections[ICD10: Z87.440] Belia REID DO [facility] CPT-4: 95332 06/04/2016 ([id number]) OFFICE/OUTPATIENT VISIT EST Diagnosis: Stridor[ICD10: R06.1] Diagnosis: Chronic obstructive pulmonary disease with acute lower respiratory infection[ICD10: J44.0] Diagnosis: Other specified diseases of intestine[ICD10: K63.89] Diagnosis: Cystitis, unspecified without hematuria[ICD10: N30.90] Belia REID DO [facility] CPT-4: 29428 05/02/2016 ([id number]) OFFICE/OUTPATIENT VISIT EST Diagnosis: Fibromyalgia[ICD10: M79.7] Diagnosis: Urinary tract infection, site not specified[ICD10: N39.0] Belia REID DO [facility] CPT-4: 71846 04/03/2016 ([id number]) OFFICE/OUTPATIENT VISIT EST Diagnosis: Unspecified asthma, uncomplicated[ICD10: J45.909] Diagnosis: Cough[ICD10: R05] Lidia Jaiden REID [facility] T-4: 54418 02/29/2016 ([id number]) OFFICE/OUTPATIENT VISIT EST Diagnosis: Migraine, unspecified, intractable, without status migrainosus[ICD10: G43.919] Diagnosis: Urinary tract infection, site not specified[ICD10: N39.0] Beliahanna REID [facility] CPT-4: 87824 02/02/2016 ([id number]) OFFICE/OUTPATIENT VISIT EST Diagnosis: Urinary tract infection, site not specified[ICD10: N39.0] Diagnosis: Unspecified abdominal pain[ICD10: R10.9] Diagnosis: Pain in thoracic spine[ICD10: M54.6] Diagnosis: Type 2 diabetes mellitus with diabetic neuropathic arthropathy[ICD10: E11.610] Belia REID [facility] CPT-4: 02282 12/05/2015 ([id number]) OFFICE/OUTPATIENT VISIT EST Diagnosis: Chronic obstructive pulmonary disease with (acute) exacerbation[ICD10: J44.1] Diagnosis: Migraine, unspecified, not intractable, without status migrainosus[ICD10: G43.909] Lidia REID [facility] CPT -4: 24752 10/26/2015 ([id number]) OFFICE/OUTPATIENT VISIT EST Diagnosis: Hematuria, unspecified[ICD10: R31.9] Diagnosis: Urinary tract infection, site not specified[ICD10: N39.0] Lidia TomlinsonMayda ANUSHKA [facility] CPT-4: 99002 10/05/2015 OFFICE/OUTPATIENT VISIT EST Diagnosis: Chronic obstructive pulmonary disease, unspecified[ICD10: J44.9] Diagnosis: Muscle weakness (generalized)[ICD10: M62.81] Diagnosis: Polyneuropathy, unspecified[ICD10: G62.9] Diagnosis: Other intervertebral disc degeneration, 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] Diagnosis: Fibromyalgia[ICD10: M79.7] Belia Anushka HSUQUELINE Yuridia DOMINGUEZ [facility] CPT-4: 88287 09/15/2015 ([id number]) OFFICE/OUTPATIENT VISIT EST Diagnosis: Disorientation, unspecified[ICD10: R41.0] Diagnosis: Headache[ICD10: R51] Diagnosis: Paresthesia of skin[ICD10: R20.2] Lidia REID [facility] CPT-4: 51750 08/24/2015 ([id number]) OFFICE/OUTPATIENT VISIT EST Diagnosis: Type 2 diabetes mellitus with hyperglycemia[ICD10: E11.65] Diagnosis: Chronic obstructive pulmonary disease with acute lower respiratory infection[ICD10: J44.0] Belia REID DO [facility] CPT-4: 17881 07/05/2015 ([id number]) OFFICE/OUTPATIENT VISIT EST Diagnosis: Mild intermittent asthma with (acute) exacerbation[ICD10: J45.21] Diagnosis: Chronic obstructive pulmonary disease, unspecified[ICD10: J44.9] Belia REID [facility] CPT-4: 85021 06/06/2015 ([id number]) OFFICE/OUTPATIENT VISIT EST Diagnosis: Chronic obstructive pulmonary disease with (acute) exacerbation[ICD10: J44.1] Lidia REID [facility] CPT- 4: 63062 05/23/2015 ([id number]) OFFICE/OUTPATIENT VISIT EST Diagnosis: Type 2 diabetes mellitus with hyperglycemia[ICD10: E11.65] Diagnosis: Functional dyspepsia[ICD10: K30] Belia REID [facility] CPT-4: 90418 05/05/2015 ([id number]) OFFICE/OUTPATIENT VISIT EST Diagnosis: Type 2 diabetes mellitus with hyperglycemia[ICD10: E11.65] Diagnosis: Glycosuria[ICD10: R81] Diagnosis: Urinary tract infection, site not specified[ICD10: N39.0] Belia REID [facility] CPT-4: 80170 03/30/2015 ([id number]) OFFICE/OUTPATIENT VISIT EST Diagnosis: Generalized abdominal pain[ICD10: R10.84] Diagnosis: Diarrhea, unspecified[ICD10: R19.7] Diagnosis: Urinary tract infection, site not specified[ICD10: N39.0] Diagnosis: Gastro-esophageal reflux disease without esophagitis[ICD10: K21.9] Belia REID [facility] CPT-4: 99689 02/03/2015 ([id number]) OFFICE/OUTPATIENT VISIT EST Diagnosis: Other specified noninflammatory disorders of vagina[ICD10: N89.8] Diagnosis: Follicular disorder, unspecified[ICD10: L73.9] Diagnosis: Functional dyspepsia[ICD10: K30] Diagnosis: FLU VACCINE[ICD10: Z23] Beliahanna Reid BELIA BushraMayda 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 CPT-[facility]: 39442 04/01/2014 OFFICE/OUTPATIENT VISIT EST Diagnosis: Reactive airway disease[ICD9: 493.90] Belia Anushka HSUPAUL LUBNA Bush[facility]May[facility] CPT-4: 20111 03/16/2014 ([id number]) OFFICE/OUTPATIENT VISIT EST Diagnosis: BRONCHITIS, ACUTE[ICD9: 466.0] Diagnosis: Reactive airway disease[ICD9: 493.90] Belia FONTAINE LUBNA BushraMayda [facility] CPT-4: 36904 03/09/2014 OFFICE/OUTPATIENT VISIT EST Diagnosis: BRONCHITIS, ACUTE[ICD9: 466.0] Diagnosis: WHEEZING[ICD9: 786.07] [facility]: 48133 03/03/2014 OFFICE/OUTPATIENT VISIT EST Diagnosis: BRONCHITIS, ACUTE[ICD9: 466.0] Diagnosis: WHEEZING[ICD9: 786.07] [facility] CPT-[facility]: 25724 03/01/2014 ([id number]) OFFICE/OUTPATIENT VISIT EST Diagnosis: GERD[ICD9: 530.81] Diagnosis: ARTHRALGIA-MULTIPLE SITES[ICD9: 719.49] Diagnosis: LUMB/LUMBOSAC DISC DEGEN[ICD9: 722.52] Diagnosis: - I - FIBROMYALGIA[ICD9: 729.1] Belia Zacharyisabellaotoniel HSUBELIA BushraMayda ZACHARYISABELLAOTONIEL [facility] CPT-4: 36641 02/09/2014 ([id number]) OFFICE/OUTPATIENT VISIT EST Diagnosis: Peptic ulcer disease[ICD9: 533.90] Diagnosis: RESTLESS LEGS SYNDROME[ICD9: 333.94] Diagnosis: Neuropathy[ICD9: 355.9] Belia Zacharyisabellaotoniel BELIA BushraMayda ZACHARYISABELLA OTONIEL [facility] CPT-4: 07625 12/23/2013 ([id number]) OFFICE/OUTPATIENT VISIT EST Diagnosis: URINARY TRACT INFECTION[ICD9: 599.0] Belia Zacharynilson HSUQUE CLAYTON BushraMayda [facility]: 28004 10/30/2013 ([id number]) OFFICE/OUTPATIENT VISIT EST Diagnosis: Flank pain[ICD9: 789.00] Belia Humphriesisabellaotoniel BELIA BushraMayda [facility] CPT-4: 71182 10/21/2013 ([id number]) OFFICE/OUTPATIENT VISIT EST Diagnosis: INFLAMED SEBORR KERATOS[ICD9: 702.11] Diagnosis: Brachioradial pruritus[ICD9: 698.9] Diagnosis: ASTHMA NOS[ICD9: 493.90] Belia Zacharynilson BRUNSON BushraMayda KIESHA VIRGILIO [facility] CPT-4: 96754 10/05/2013 ([id number]) OFFICE/OUTPATIENT VISIT EST Diagnosis: HYPERTENSION[ICD9: 401.9] Diagnosis: - I - FIBROMYALGIA[ICD9: 729.1] Diagnosis: DIZZINESS/VERTIGO[ICD9: 780.4] Diagnosis: MIGRAINE NOS/NOT INTRCBL[ICD9: 346.90] Diagnosis: Diabetic peripheral neuropathy[ICD9: 250.60] Diagnosis: Flank pain[ICD9: 789.00] Belia BRUNSON BushraMayda [facility] CPT-4: 41210 08/04/2013 ([id number]) OFFICE/OUTPATIENT VISIT EST Diagnosis: ALLERGIC RHINITIS[ICD9: 477.9] Belia Zacharynilson BRUNSON Bushra Mayad ANUSHKA [facility] CPT-4: 89525 07/13/2013 OFFICE/OUTPATIENT VISIT EST Diagnosis: URINARY TRACT INFECTION[ICD9: 599.0] Huong De LunaFidepool REID [facility] CPT-4: 24832 07/03/2013 OFFICE/OUTPATIENT VISIT EST Diagnosis: HYPERTENSION[ICD9: 401.9] Diagnosis: URINARY TRACT INFECTION[ICD9: 599.0] Diagnosis: BACKACHE[ICD9: 724.5] Diagnosis: URINARY INCONTINENCE[ICD9: 788.30] Huong De LunaKp ARACELISROBERTOKIMI MARIE BushraMayda [facility] CPT-4: 51101 05/27/2013 ([id number]) OFFICE/OUTPATIENT VISIT EST Diagnosis: Flank pain[ICD9: 789.00] Belia POOLE [facility] CPT-4: 28678 05/25/2013 ([id number]) OFFICE/OUTPATIENT VISIT EST Diagnosis: B-COMPLEX DEFIC NEC[ICD9: 266.2] Belia Zacharynilson BRUNSON BushraMayda [facility] CPT-4: 81137 05/04/2013 ([id number]) OFFICE/OUTPATIENT VISIT EST Diagnosis: ALLERGIC RHINITIS[ICD9: 477.9] Diagnosis: Vitamin B12 deficiency[ICD9: 266.2] Belia THOMPSON BushraMayda ANUSHKA [facility] CPT-4: 40271 04/17/2013 ([id number]) OFFICE/OUTPATIENT VISIT EST 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I[ICD9: 250.00] Diagnosis: URINARY TRACT INFECTION[ICD9: 599.0] Diagnosis: DIZZINESS/VERTIGO[ICD9: 780.4] Diagnosis: DIARRHEA[ICD9: 787.91] Belia Peguero [facility] CPT-4: 14904 04/06/2013 ([id number]) OFFICE/OUTPATIENT VISIT EST Diagnosis: URINARY TRACT INFECTION[ICD9: 599.0] Diagnosis: URINARY RETENTION[ICD9: 788.20] Belia BRUNSON BushraMayda [facility] CPT-[facility]: 71604 11/10/2012 ([id number]) OFFICE/OUTPATIENT VISIT EST Diagnosis: TACHYCARDIA[ICD9: 785.0] Diagnosis: SYNCOPE AND COLLAPSE[ICD9: 780.2] Diagnosis: CONSCIOUSNS ALTERAT NEC[ICD9: 780.09] Belia Smithotoniel MINAL REID [facility] CPT-4: 71142 09/02/2012 OFFICE/OUTPATIENT VISIT EST Diagnosis: TACHYCARDIA[ICD9: 785.0] Diagnosis: SYNCOPE AND COLLAPSE[ICD9: 780.2] Belia REID [facility] CPT-4: 12514 08/04/2012 ([id number]) OFFICE/OUTPATIENT VISIT EST Diagnosis: Loss of consciousness[ICD9: 780.09] Diagnosis: Tachycardia[ICD9: 785.0] Diagnosis: MALAISE AND FATIGUE[ICD9: 780.79] [facility]: 60331 07/21/2012 ([id number]) OFFICE/OUTPATIENT VISIT EST Diagnosis: BRONCHITIS, ACUTE[ICD9: 466.0] Diagnosis: ASTHMA NOS[ICD9: 493.90] Belia POOLE [facility] CPT-4: 00468 07/02/2012 ([id number]) OFFICE/OUTPATIENT VISIT EST Diagnosis: CEPHALGIA[ICD9: 784.0] Belia CORNELLLINE Yuridia Peguero [facility] CPT-4: 56982 06/25/2012 ([id number]) OFFICE/OUTPATIENT VISIT EST Diagnosis: GERD[ICD9: 530.81] Diagnosis: DIARRHEA[ICD9: 787.91] Diagnosis: URINARY TRACT INFECTION[ICD9: 599.0] Diagnosis: ASTHMA NOS[ICD9: 493.90] Diagnosis: ALLERGIC RHINITIS[ICD9: 477.9] Belia Humphriesisabellaotoniel CORNELLBELIA Bushra REID [facility] CPT-4: 72025 06/24/2012 ([id number]) OFFICE/OUTPATIENT VISIT EST Diagnosis: MIGRAINE NOS/NOT INTRCBL[ICD9: 346.90] Diagnosis: TREMOR NEC[ICD9: 333.1] Diagnosis: CHRONIC PAIN SYNDROME[ICD9: 338.4] Belia SALAZAR BushraMayda ANUSHKA [facility] CPT-4: 27499 05/20/2012 ([id number]) OFFICE/OUTPATIENT VISIT EST Diagnosis: DIZZINESS/VERTIGO[ICD9: 780.4] Diagnosis: PALPITATIONS[ICD9: 785.1] Diagnosis: TREMOR NEC[ICD9: 333.1] Diagnosis: ANXIETY STATE NOS[ICD9: 300.00] Diagnosis: POSTTRAUMATIC STRESS DISORDER[ICD9: 309.81] Belia Zacharynilson BRUNSON BushraMayda ANUSHKA [facility] CPT-4: 62337 05/08/2012 ([id number]) OFFICE/OUTPATIENT VISIT EST Diagnosis: MIGRAINE NOS/NOT INTRCBL[ICD9: 346.90] Diagnosis: FIBROMYALGIA[ICD9: 729.1] Diagnosis: SYNCOPE AND COLLAPSE[ICD9: 780.2] Diagnosis: Diabetic peripheral neuropathy[ICD9: 250.60] Belia Zacharynilson BELIA BushraMayda ANUSHKA [facility] CPT-4: 40108 04/22/2012 OFFICE/OUTPATIENT VISIT EST Diagnosis: ROTATOR CUFF DIS NEC[ICD9: 726.19] Diagnosis: JOINT PAIN-SHLDER[ICD9: 719.41] Diagnosis: DYSPEPSIA[ICD9: 536.8] Belia Zacharynilson BELIA BushraMayda RALF Peguero [facility] CPT-4: 04188 02/13/2012 ([id number]) OFFICE/OUTPATIENT VISIT EST Diagnosis: MIGRAINE NOS/NOT INTRCBL[ICD9: 346.90] Diagnosis: GERD[ICD9: 530.81] Diagnosis: DYSPEPSIA[ICD9: 536.8] Belia BRUNSON BushraMayda RALF Peguero [facility] CPT-4: 64611 01/28/2012 OFFICE/OUTPATIENT VISIT EST Diagnosis: CEPHALGIA[ICD9: 784.0] Diagnosis: MIGRAINE NOS/NOT INTRCBL[ICD9: 346.90] Diagnosis: GERD[ICD9: 530.81] Diagnosis: INSOMNIA NOS[ICD9: 780.52] Belia Shi RAND ALBERTO [facility] CPT-4: 56920 12/26/2011 ([id number]) OFFICE/OUTPATIENT VISIT EST Diagnosis: CEPHALGIA[ICD9: 784.0] Diagnosis: MIGRAINE NOS/NOT INTRCBL[ICD9: 346.90] Diagnosis: MALAISE AND FATIGUE[ICD9: 780.79] Diagnosis: FIBROMYALGIA[ICD9: 729.1] Diagnosis: ALLERGIC RHINITIS[ICD9: 477.9] Belia CORNELLLINE Bushra Mayda ANUSHKA [facility] CPT-4: 12586 11/14/2011 ([id number]) OFFICE/OUTPATIENT VISIT EST Diagnosis: MALAISE AND FATIGUE[ICD9: 780.79] Diagnosis: MUSCLE WEAKNESS-GENERAL[ICD9: 728.87] Diagnosis: MIGRAINE NOS/NOT INTRCBL[ICD9: 346.90] Diagnosis: JOINT PAIN-SHLDER[ICD9: 719.41] Belia Orenilson BRUNSON BushraMayda ANUSHKA [facility] CPT-4: 27880 09/12/2011 ([id number]) OFFICE/OUTPATIENT VISIT EST Diagnosis: CONCUSSION[ICD9: 850.9] Diagnosis: Ataxia[ICD9: 781.3] Diagnosis: DIZZINESS/VERTIGO[ICD9: 780.4] Belia Reid BELIA Bushra Mayda ANUSHKA [facility] CPT-4: 21701 08/15/2011 ([id number]) OFFICE/OUTPATIENT VISIT EST Diagnosis: THROMBOPHLEBITIS[ICD9: 451.9] Diagnosis: Subacromial bursitis[ICD9: 726.19] Diagnosis: ALLERGIC RHINITIS[ICD9: 477.9] Diagnosis: Lipoma[ICD9: 214.9] Belia Humphriesisabellaotoniel HSUBELIA BushraMayda ANUSHKA [facility] CPT-4: 75060 08/09/2011 ([id number]) OFFICE/OUTPATIENT VISIT EST Diagnosis: THROMBOPHLEBITIS[ICD9: 451.9] Diagnosis: Arm pain[ICD9: 729.5] Diagnosis: Clostridium difficile colitis[ICD9: 008.45] Diagnosis: URINARY TRACT INFECTION[ICD9: 599.0] Belia Zacharynilson ARNOLD BushraMayda ANUSHKA [facility] CPT-4: 87830 07/03/2011 ([id number]) OFFICE/OUTPATIENT VISIT EST Diagnosis: ARTHRALGIA-MULTIPLE SITES[ICD9: 719.49] Diagnosis: Muscle cramp[ICD9: 729.82] Diagnosis: INSOMNIA NOS[ICD9: 780.52] [facility]: 15458 06/04/2011 OFFICE/OUTPATIENT VISIT EST Diagnosis: Headache[ICD9: 784.0] Diagnosis: Allergic rhinitis[ICD9: 477.9] [facility]PT-[facility]: 35104 05/03/2011 OFFICE/OUTPATIENT VISIT EST Diagnosis: LUMB/LUMBOSAC DISC DEGEN[ICD9: 722.52] Diagnosis: MIGRAINE NOS/NOT INTRCBL[ICD9: 346.90] Diagnosis: CHRONIC PAIN SYNDROME[ICD9: 338.4] Diagnosis: RESTLESS LEGS SYNDROME[ICD9: 333.94] Belia Zacharynilson ARNOLD Yuridia [facility] CPT-4: 33866 04/05/2011 OFFICE/OUTPATIENT VISIT EST Diagnosis: MIGRAINE NOS/NOT INTRCBL[ICD9: 346.90] Diagnosis: GERD[ICD9: 530.81] Belia HSUQUELINE BushraMayda [facility]: 85540 03/08/2011 OFFICE/OUTPATIENT VISIT EST Diagnosis: URINARY TRACT INFECTION[ICD9: 599.0] Diagnosis: Vertigo[ICD9: 780.4] Diagnosis: GERD[ICD9: 530.81] Belia Zacharynilson BELIA BushraMayda [facility] CPT-4: 92095 01/24/2011 OFFICE/OUTPATIENT VISIT EST Diagnosis: Hypotension[ICD9: 458.9] Diagnosis: Syncopal episodes[ICD9: 780.2] Diagnosis: MIGRAINE NOS/NOT INTRCBL[ICD9: 346.90] Diagnosis: MALAISE AND FATIGUE[ICD9: 780.79] Belia Zacharynilson Paredes [facility]: 36720 01/02/2011 OFFICE/OUTPATIENT VISIT EST Diagnosis: Tinea cruris[ICD9: 110.3] Diagnosis: Intertrigo[ICD9: 695.89] Diagnosis: MIGRAINE NOS/NOT INTRCBL[ICD9: 346.90] Belia COKER BushraMayda [facility] CPT-4: 25113 12/07/2010 OFFICE/OUTPATIENT VISIT EST Diagnosis: PALPITATIONS[ICD9: 785.1] Diagnosis: ANXIETY STATE NOS[ICD9: 300.00] Belia [facility]UNSON [facility] CPT-4: 01360 11/16/2010 OFFICE/OUTPATIENT VISIT EST Diagnosis: URINARY TRACT INFECTION[ICD9: 599.0] Diagnosis: MIGRAINE NOS/NOT INTRCBL[ICD9: 346.90] Iraida CASILLAS UELINE [facility] CPT-4: 12921 11/02/2010 OFFICE/OUTPATIENT VISIT EST Diagnosis: ALLERGIC RHINITIS[ICD9: 477.9] Diagnosis: ANXIETY STATE NOS[ICD9: 300.00] Belia Anushka BRUNSON [facility] CPT-4: 89178 10/18/2010 OFFICE/OUTPATIENT VISIT EST Belia [facility]UNSON [facility] CPT- 4: 35859 09/19/2010 OFFICE/OUTPATIENT VISIT EST Belia BRUNSON [facility] CPT- 4: 26849 09/06/2010 ([id number]) OFFICE/OUTPATIENT VISIT EST Belia Anushka CASILLAS U[facility] CPT-4: 64920 08/10/2010 ([id number]) OFFICE/OUTPATIENT VISIT EST Belia CASILLAS UELINE [facility] CPT-4: 69417 05/11/2010 ([id number]) OFFICE/OUTPATIENT VISIT, EST Belia Anushka MEJIALINE [facility] CPT-4: 05239 04/06/2010 ([id number]) OFFICE/OUTPATIENT VISIT, EST Belia Zacharyisabellaotoniel ARACELIS QUELINE [facility] CPT-4: 83926 02/09/2010 ([id number]) OFFICE/OUTPATIENT VISIT, EST Belia HSU QUELINE [facility] CPT-4: 75358 01/05/2010 ([id number]) OFFICE/OUTPATIENT VISIT, EST Belia HSU QUELINE [facility] CPT-4: 62526 12/07/2009 ([id number]) OFFICE/OUTPATIENT VISIT, EST Belia HSU ROBERTOLINE [facility] CPT-4: 66694 11/08/2009 ([id number]) OFFICE/OUTPATIENT VISIT, RIOS REID DO [facility] CPT-4: 04927 10/24/2009 ([id number]) OFFICE/OUTPATIENT VISIT, EST Belia REID DO [facility] CPT-4: 90466 07/25/2009 ([id number]) OFFICE/OUTPATIENT VISIT, RIOS REID DO [facility] CPT-4: 13258 05/26/2009 Plan of Care Planned Activity Notes [...] Plan: CT HEAD/BRAIN W/O DYE LOINC : 93835-4 Pending 09/02/2019 Visit Diagnosis Plan: Generalized pain [...] Appointment: Belia Reid WPtel: [phone] [id number] ACUTE ILLNESS 08/25/2019 Patient Education: meloxicam- [employer] [id number] https://www.[employer]/samplemd/resources/getResource/61/xo14x2p2-5yaj-2256-y9 Completed 08/25/2019 Patient Education: baclofen- [employer] [id number] https://www.[employer]md/resources/getResource/61/d02k492z-8r3b-75e7-rr Completed 08/25/2019 Visit Diagnosis Plan: Yawning Discussion: [...] new home sleep study on patient through [place] to assess severity of symptoms, patient does wear her oxygen at night though. educated on importance of wearing oxygen at all times, even when in public. ICD-9 : 786.09 ICD-10 : R06.89 08/10/2019 [facility] [address] [id number] [facility] 08/10/2019 Visit Diagnosis Plan: Dyspnea [...] ICD-10 : K59.00 08/04/2019 Appointment: Pattie Sotomayor [address] [place] [address] ACUTE ILLNESS 08/04/2019 Visit Diagnosis Plan: Inspiratory stridor Discussion: Continue oxygen via NC at 2 L Continue ativan at QID Follow Up: 4 weeks ICD-9 : 786.1 ICD-10 : R06.1 07/06/2019 Visit Diagnosis Plan: Diarrhea Discussion: Restart Col estid at once daily ICD-9 : 787.91 ICD-10 : R19.7 07/06/2019 Appointment: Belia Reid WPtel: [phone] [id number] TELEMEDICINE 07/06/2019 Visit Diagnosis Plan: Left leg swelling Discussion: Ne [facility] LLE venous doppler--patient states is scheduled [...] R06.00 06/24/2019 Appointment: Belia Reid WPtel: [phone] [id number] TELEMEDICINE 06/24/2019 Visit Diagnosis Plan: Acute bronchitis Discussion: Cov er with levaquin Increase SVNs with albuterol to QID Has oxygen using q HS routinely and prn To ER if oxygen levels drop or worsening respiratory symptoms ICD-9 : 466.0 ICD-10 : J20.9 06/16/2019 Visit Diagnosis Plan: Colitis Discussion: Levaquin/Fla gyl [place] Diet ICD-9 : 558.9 ICD-10 : K52.9 06/16/2019 Appointment: Belia Reid WPtel: [address] [place] [address] TELEMEDICINE 06/16/2019 Patient Education: Levaquin- OptimizeRX Coupon [id number] [id number] https://www.[employer]/6Waves/resources/getResource/61/[email or web address] Completed 06/16/2019 Visit Diagnosis Plan: Diarrhea Discussion: Vancomycin for 10 days and notify if not improving or worsening BLAND diet Hydrate ICD-9 : 787.91 ICD-10 : R19.7 06/08/2019 Appointment: Belia Reid WPtel: [address] [place] [address] TELEMEDICINE 06/08/2019 Visit Diagnosis Plan: Acute febrile illness Discussion : Notify if worsens ICD-9 : 780.60 ICD-10 : R50.9 05/26/2019 Visit Diagnosis Plan: Colitis Discussion: Flagyl plus cipro to cover for both colitis and UTI Notify or to ER if worsening ICD-9 : 558.9 ICD-10 : K52.9 05/26/2019 Appointment: Belia Reid WPtel: [address] [place] [address] TELEMEDICINE 05/26/2019 Appointment: Pattie Sotomayor [address] RESCHEDULED 05/18/2019 Visit Diagnosis Plan: Chronic obstructive pulmonary di sease, unspecified Discussion: Recommend pulmonary rehab Patient states she never went to pulmonary rehab due to cost as well as transportation issues Finish trelagy Stop singulair Decrease hydroxyzine to 25mg po q HS Fwup [address] scan of Chest results discussed ICD-9 : 496 ICD-10 : J44.9 05/13/2019 Appointment: Belia Reid WPtel: [address] [place] [address] Hospital Follow Up 05/13/2019 Visit Diagnosis Plan: COUGH Discussion: Check CT scan of chest ICD-9 : 786.2 ICD-10 : R05 05/06/2019 Visit Diagnosis Plan: Stridor Discussion: Add Trelagy 1 p daily Add Singulair May need to see new engineering consultant ICD-9 : 786.1 ICD-10 : R06.1 05/06/2019 Appointment: Belia Reid WPtel: [address] [place] [address] FOLLOW UP 05/06/2019 Patient Education: Singulair- OptimizeRX Coupon [id number] https://www.[employer]Waves/resources/getResource/61/0112371k-x77b-90l5-iu Completed 05/06/2019 Appointment: Belia Reid WPtel: [address] [place] [address] RESCHEDULED 04/30/2019 Visit Diagnosis Plan: Muscle, jerky [...] : R06.1 04/29/2019 Appointment: Belia Reid WPtel: [address] [place] [address] Hospital Follow Up 04/29/2019 Patient Education: Valium- OptimizeRX Coupon [id number] https://www.[employer]Waves/resources/getResource/61/i25763av-098h-2r30-6v Completed 04/29/2019 Visit Diagnosis Plan: Weight gain [...] ICD-10 : R10.9 04/16/2019 Appointment: Pattie Sotomayor [address] [place], [place] [address] ACUTE ILLNESS 04/16/2019 Patient Education: cyclobenzaprine- OptimizeRX Coupon [id number] https://www.[employer].InTown/samplemd/resources/getResource/61/lt11x1f4-2428-3236-t7 Completed 04/16/2019 Visit Diagnosis Plan: Generalized pruritus Discussion: Hydroxyzine 25mg po TID for itching and anxiety ICD-9 : 698.9 ICD-10 : L29.9 04/08/2019 Visit Diagnosis Plan: Migraine, unspecif ied, not intractable, without status migrainosus Discussion: Increase gabapentin to 600mg po BID ICD-9 : 346.90 ICD-10 : G43.909 04/08/2019 Appointment: Belia Reid WPtel: [address] [place] [address] ACUTE ILLNESS 04/08/2019 Visit Diagnosis Plan: Cervicalgia [...] M75.52 01/22/2019 Appointment: Belia Reid WPtel: [facility] [address] Hospital Follow Up 01/22/2019 Visit Diagnosis Plan: Abdominal pain Discussion: urine culture sent to assess for any infection. rocephin given in office to cover for pyelonephritis. instructed to push fluids. call office with any new or worsening symptoms. ICD-9 : 789.00 ICD-10 : R10.9 01/07/2019 Appointment: Pattie Sotomayor [address] [place] [address] ACUTE ILLNESS 01/07/2019 Visit Diagnosis Plan: Low back pain Discussion: Stat C T of abdomen/pelvis now ICD-9 : 724.2 ICD-10 : M54.5 12/24/2018 Appointment: Belia Reid WPtel: [address] [place] [address] [place] FOLLOW UP 12/24/2018 Visit Diagnosis Plan: [...] : G43.909 11/20/2018 Appointment: Belia Reid WPtel: [address] [place] [address] ACUTE ILLNESS 11/20/2018 Patient Education: baclofen- OptimizeRX Coupon [id number] https://www.[employer].com/samplemd/resources/getResource/61/3l6930s3-mt5i-28ei-33 Completed 11/20/2018 Visit Diagnosis Plan: Acute sinusitis, [...] or worsening. instructed to follow up with field handyman since headaches are occurring more frequently to make sure vision is not the cause. ICD-9 : 346.91 ICD-10 : G43.919 11/04/2018 Appointment: Pattie Sotomayor 504 [facility] ACUTE ILLNESS 11/04/2018 Appointment: Belia Reid WPtel: [phone] [facility] US CANCELED 09/24/2018 Visit Diagnosis Plan: Type [...] I10 09/18/2018 Visit Diagnosis Plan: Encounter for [facility] adult medical examination without abnormal findings Discussion: Mediterranean diet Combinati on of cardio and weight bearing exercise ICD-9 : V70.9 ICD-10 : Z00.00 09/18/2018 Visit Diagnosis Plan: Type 2 diabetes mellitus with hy perglycemia Discussion: Lab discussed Accuchecks daily Continue current meds Check CMP and HbA1C in 3mos then fwup ICD-9 : 250.02 ICD-10 : E11.65 09/18/2018 Appointment: Belia Reid WPtel: [address] [facility] Annual Well Visit 09/18/2018 Patient Education: gabapentin- OptimizeRX Coupon [id number] https://www.[employer].com/samplemd/resources/getResource/61/5w45so91-3yc6-6dpz-z9 Completed 09/18/2018 Visit Diagnosis Plan: Pain in [...] ICD-10 : M54.89 09/08/2018 Appointment: Pattie Sotomayor [address] [place], [place] [address] ACUTE ILLNESS 09/08/2018 Patient Education: prednisone- OptimizeRX Coupon [id number] https://www.[employer]/samplemd/resources/getResource/61/2x2ox52n-0591-79q8-li Completed 09/08/2018 Visit Diagnosis Plan: DM W/O [...] : F43.0 08/20/2018 Appointment: Belia Reid WPtel: [facility]0 [facility]6[address] ACUTE ILLNESS 08/20/2018 Patient Education: Lexapro- OptimizeRX Coupon [id number] Completed 08/20/2018 Patient Education: hydroxyzine HCl- OptimizeRX Coupon [id number] Completed 08/20/2018 Care Plan: MAMMOGRAM SCREENING LOINC : 2 6347-5 Pending 08/20/2018 Visit Diagnosis Plan: Paroxysmal atrial fibrillation D iscussion: Discuss eliquis need with cardiology at [facility] due to cost ICD-9 : 427.31 ICD-10 : I48.0 06/19/2018 Visit Diagnosis Plan: Hypotension due to drugs Discuss ion: Discussed decreasing cardizem dose due to low BP and edema but sees cardiology next week Follow Up: 1 months ICD-9 : 458.8 ICD-10 : I95.2 06/19/2018 Appointment: Belia Reidtel: [address] [place], [place] [phone] [place] FOLLOW UP 06/19/2018 Visit Diagnosis Plan: [...] : I10 06/09/2018 Appointment: Belia Reid WPtel: [facility]0 [facility]6[address] FOLLOW UP 06/09/2018 Care Plan: CHEST X-RAY 2VW FRONTAL&LATL LOINC : 36773-9 Pending 05/26/2018 Visit Diagnosis Plan: Weakness Discussion: [...] ICD-10 : I47.1 05/21/2018 Appointment: Belia Reidtel: [facility]7 [facility] Hospital Follow Up 05/21/2018 Visit Diagnosis Plan: Cervical disc diso rder with radiculopathy, unspecified cervical region Discussion: Scheduled for surgery on 06/02 10/[address] Faulkner ICD-9 : 722.0 ICD-10 : M50.10 04/16/2018 Appointment: Belia Reid WPtel: [address] [place] [address] Hospital Follow Up 04/16/2018 Visit Diagnosis Plan: [...] ICD-10 : G43.919 04/01/2018 Appointment: Pattie Sotomayor [address] [place] [address] ACUTE ILLNESS 04/01/2018 Appointment: Belia Reid WPtel: [address] [place] [address] 03/17/2018 Visit Diagnosis Plan: Erythema intertrigo Discussio: [...] : J44.1 03/06/2018 Appointment: Belia Reid WPtel: [address] [place] [address] Hospital Follow Up 03/06/2018 Visit Diagnosis Plan: Cervicalgia Discussion: spoke wi th dr. reid about patient. increased gabapentin to bid and started on celebrex bid. tramadrol rx written out to take prn. keep scheduled appt next week for myelogram. ICD-9 : 723.1 ICD-10 : M54.2 02/05/2018 Appointment: Pattie Sotomayor [address] [place] [address] ACUTE ILLNESS 02/05/2018 Care Plan: X-RAY EXAM NECK SPINE 4/5VWS cervical LOINC : 65481-1 Pending 01/21/2018 Visit Diagnosis Plan: Cervicalgia Discussion: [...] ICD-10 : B37.2 01/20/2018 Appointment: Pattie Sotomayor [address] [place] [address] ACUTE ILLNESS 01/20/2018 Visit Diagnosis Plan: Pain in thoracic spine Discussio n: Proceed with CT scan of thoracic spine Will likely need PT ICD-9 : 724.1 ICD-10 : M54.6 12/25/2017 Appointment: Belia Reid WPtel: [address] [place] [address] FOLLOW UP 12/25/2017 Care Plan: CT THORAX W/O DYE LOINC : 473 66-0 Pending 12/25/2017 Visit Diagnosis Plan: Pain in thoracic spine Discussio n: Stretches Alternated heat/ice Topical aspercreme with lidocaine Flexeril Recheck 1 week Flu and Pneumovax given ICD-9 : 724.1 ICD-10 : M54.6 12/17/2017 Appointment: Belia Reid WPtel: [facility] [address] ACUTE ILLNESS 12/17/2017 Patient Education: Patient [...] : J44.1 10/30/2017 Appointment: Belia Reid WPtel: [address] [place], [place] [phone] FOLLOW UP 10/30/2017 Patient Education: Patient Medication Summary Completed 10/30/2017 Visit Diagnosis Plan: Chronic obstructiv e pulmonary disease with acute lower respiratory infection Discussion: Continue SVNs with albuterol q4hrs Add Trelagy 1 inhalation daily Finish steroids Increase water intake Follow Up: 1 weeks ICD-9 : 496 ICD-10 : J44.0 10/23/2017 Appointment: Belia Reid WPtel: [address] [place], [place] [phone] WORK IN 10/23/2017 Patient Education: Patient Medication Summary Completed 10/23/2017 Appointment: Belia Reid WPtel: [address] [place], [place] [address] NO SHOW 10/16/2017 Visit Diagnosis [...] : E11.65 09/17/2017 Appointment: Belia Reid WPtel: [address] [place], [place] [phone] Annual Well Visit 09/17/2017 Patient Education: Patient Medication Summary Completed 09/17/2017 Appointment: Belia Reid WPtel: [address] [place], [place] [phone] [place] INJECTION 08/26/2017 Patient Education: Patient Medication Summary Completed 08/26/2017 Appointment: Belia Reid WPtel: [phone] [id number] [place] CANCELED 07/31/2017 Visit Diagnosis Plan: Encounter [...] ICD-10 : Z13.820 07/19/2017 Appointment: Pattie Sotomayor [address] [place], [place] [phone] ACUTE ILLNESS 07/19/2017 Patient Education: Patient Medication Summary Completed 07/19/2017 Care Plan: MAMMOGRAM SCREENING LOINC : 2 6347-5 Pending 07/19/2017 Patient Education: Patient Medication Summary Completed 06/05/2017 Care Plan: LIPID PANEL LOINC : 05593-6 Pending 06/05/2017 Care Plan: A1C HPLC LOINC : 57834-6 Pending 06/05/2017 Visit Diagnosis Plan: Rash and [...] ICD-10 : R21 05/29/2017 Appointment: Pattie Sotomayor [address] [place] [address] FOLLOW UP 05/29/2017 Patient Education: Patient Medication Summary Completed 05/29/2017 Visit Diagnosis Plan: Diarrhea, unspecified Discussion : Diflucan Cholestyramine Recheck 2weeks ICD-9 : 787.91 ICD-10 : R19.7 05/07/2017 Visit Diagnosis Plan: Tinea corporis Discussion: Diflu can and topical nystatin Follow Up: 2 weeks ICD-9 : 110.5 ICD-10 : B35.4 05/07/2017 Appointment: Belia Reid WPtel: [address] [place] [address] [place] FOLLOW UP 05/07/2017 Patient Education: Patient Medication Summary Completed 05/07/2017 Appointment: Belia Reidtel: [address] [place] [address] [place] RESCHEDULED 04/30/2017 Visit Diagnosis Plan: Stridor Discussion: Increase Ati van 0.5mg po to TID routinely for next week then can go back to prn ICD-9 : 786.1 ICD-10 : R06.1 03/18/2017 Visit Diagnosis Plan: Chronic obstructiv e pulmonary disease with (acute) exacerbation Discussion: Finish prednisone Continue S VNS with albuterol ICD-9 : 491.21 ICD-10 : J44.1 03/18/2017 Appointment: Belia Reid WPtel: [address] [place] [address] ER Follow UP 03/18/2017 Patient Education: Patient [...] E11.65 02/27/2017 Appointment: [facility]Ptel: [facility] [facility] FOLLOW [facility] 02/27/2017 Patient Education: Patient [...] ICD-10 : E11.65 02/22/2017 Appointment: Pattie Sotomayor [facility] [id number] ACUTE ILLNESS 02/22/2017 Patient Education: Patient Medication Summary Completed 02/22/2017 Patient Education: Trulicity - 18+ Comple mague 02/22/2017 Visit Diagnosis Plan: Pneumonia, unspecified organism Discussion: Maria Antonia boyd then do doxycycline for 2 weeks then will plan on repeat CT scan of lungs in 3mos ICD-9 : 486 ICD-10 : J18.9 01/23/2017 Visit Diagnosis Plan: Type 2 diabetes mellitus with hy perglycemia Discussion: Increase amaryl to 4mg po BID Accuchecks TID Follow Up: 1 months ICD-9 : 250.02 ICD-10 : E11.65 01/23/2017 Visit Diagnosis Plan: Urinary tract infection, site no t specified Discussion: Sejal lemus ICD-9 : 599.0 ICD-10 : N39.0 01/23/2017 Appointment: Belia Reid WPtel: [phone] [facility] [facility] Follow UP 01/23/2017 Patient Education: Patient Medication Summary Completed 01/23/2017 Appointment: Pattie Sotomayor 504 [facility] [id number] CANCELED 01/17/2017 Appointment: Pattie Sotomayor [facility] [id number] Annual Well Visit 01/14/2017 Visit Diagnosis Plan: Type 2 diabetes mellitus with hy perglycemia Discussion: Check CMP, HbA1C Flu shot and Prevnar 13 given Follow Up: 3 months ICD-9 : 250.02 ICD-10 : E11.65 12/20/2016 Visit Diagnosis Plan: Localized edema Discussion: Low Na diet Compression socks/Elevate feet ICD-9 : 782.3 ICD-10 : R60.0 12/20/2016 Appointment: Belia Reid WPtel: [address] [place], [place] [phone] FOLLOW UP 12/20/2016 Patient Education: Patient Medication Summary Completed 12/20/2016 Patient Education: Patient Medication Summary Completed 10/10/2016 Visit Plan: Xrays of cervical, thoracic and lumbar spine at [facility] for Mobic (stop NSAIDS except Tylenol) and Flexeril UA sent for C&S Using SVN Call in 2-3 days if pain not improved or any worsening 10/08/2016 Appointment: Celeste Ferreira WPtel: [address] [place] [address] ACUTE ILLNESS 10/08/2016 Patient Education: Patient Medication Summary Completed 10/08/2016 Visit Diagnosis Plan: Type 2 diabetes mellitus [...] ICD-9 : 780.52 ICD-10 : F51.01 09/19/2016 Appointment: Belia Reid WPtel: [address] [place], [place] [phone] 09/18 confirmed`sl FOLLOW UP 09/19/2016 Patient Education: [...] : G43.909 08/20/2016 Appointment: Belia Reid WPtel: [address] [place], [place] [phone] 08/16 confirmed~sl FOLLOW UP 08/20/2016 Patient Education: [...] : R06.1 06/19/2016 Appointment: Belia Reid WPtel: [address] [place] [address] 06/18 confirmed ~ Hospital Follow Up 06/19/2016 [...] : Z87.440 06/04/2016 Appointment: Belia Reid WPtel: [address] [place], [place] [phone] 06/01 confirmed~sl FOLLOW UP 06/04/2016 Patient Education: Patient Medication Summary Completed 06/04/2016 Visit Diagnosis Plan: Other specified diseases of inte chana Discussion: Finish flagyl Schedule with Dr. Kido for colonoscopy Start daily probiotic Follow Up: 1 months ICD-9 : 569.89 ICD-10 : K63.89 05/02/2016 Visit Diagnosis Plan: Stridor Discussion: Continue ati van at current khalil ICD-9 : 786.1 ICD-10 : R06.1 05/02/2016 Visit Diagnosis Plan: Cystitis, unspecified without he maturia Discussion: Finish macrobid then go to QOD on macrobid ICD-9 : 595.9 ICD-10 : N30.90 05/02/2016 Appointment: Belia Reid WPtel: [address] [place], [place] [phone] 05/01 confirmed [facility] Hospital Follow Up 05/02/2016 Patient [...] : M79.7 04/03/2016 Appointment: Belia Reid WPtel: [address] [place], [place] [id number] [facility] 04/03/2016 Patient Education: Patient Medication Summary Completed 04/03/2016 Visit Plan: Lungs are clear Her symptoms and exam are all upper airway restriction/constriction Can try supportive care Rx as above Follow up PRN 02/29/2016 Appointment: Lidia Hwang [address] [place], [place] [phone] ACUTE ILLNESS 02/29/2016 Patient Education: Patient Medication Summary Completed 02/29/2016 Visit Plan: Toradol/Phenergan today for Migraine Change to Clindamycin to cover lactobacillus for UTI Cover with flagyl due to hx of C. Diff 02/02/2016 Appointment: Belia Reid WPtel: [address] [place], [place] [phone] 01/31 confirmed`sl ACUTE ILLNESS 02/02/2016 Patient Education: Patient Medication Summary Completed 02/02/2016 Visit Plan: Increase neurontin to 300mg q AM and 600mg q PM Discussed neurology re-evaluation Flu shot given Need to check on Pneumonia shot Rx written out for albuterol 01/05/2016 Appointment: Belia Reid WPtel: [address] [place], [place] [phone] 01/03 confirmed ~sl Annual Well Visit 01/05/2016 Patient Education: Patient Medication Summary Completed 01/05/2016 Visit Plan: Cipro Culture urine hydrate Flexeril refilled Alternate heat and ice for back Increase gabapentin to 300mg po BID Notify if worsens 12/05/2015 Appointment: Belia Reid WPtel: [address] [place], [place] [phone] 11/30 confirmed~sl ACUTE ILLNESS 12/05/2015 Patient Education: Patient Medication Summary Completed 12/05/2015 Patient Education: Patient Medication Summary Completed 10/27/2015 Care Plan: [place] : 98[address]-7 Pending 10/27/2015 Care Plan: A1C HPLC LOINC : 55962-7 Pending 10/27/2015 Visit Plan: Lungs are CTA today and is f eeling improved overall Finish meds as ordered Continue inhalers and neb treatments Discussed migraine treatment options She does not feel she needs anything additional added today Refill of Januvia sent since no samples are available today 10/26/2015 Appointment: [facility] [facility] Follow Up 10/26/2015 Appointment: Lidia Hwang 2305 [facility] CANCELED 10/26/2015 Patient Education: Patient Medication Summary Completed 10/26/2015 Patient Education: Natalia - 18+ - KENNETH - No [place] Completed 10/26/2015 Visit Plan: Office dip still abnormal Cu lture pending Switch to cipro - stop macrobid Push fluids - avoid caffeine Will call with culture results when available Follow up if worsening 10/05/2015 Appointment: Jaiden Lidia 2305 [facility] ER Follow UP 10/05/2015 Patient Education: Patient Medication Summary Completed 10/05/2015 Visit Plan: Proceed with PT for document ation of ROM and strength of all extremities Proceed with Power Mobility Device Trial of neurontin 300mg q HS--lyrica helped but patient unable to afford Recheck 1month 09/15/2015 Appointment: Belia Reid WPtel: [address] [place], [place] [phone] 09/13 confirmed~sl SPECIAL 09/15/2015 Patient Education: Patient Medication Summary Completed 09/15/2015 Visit Plan: Fille out Loan Discharge Pap erwork for total and permanent disability 08/25/2015 Patient Education: Patient Medication Summary Completed 08/25/2015 Visit Plan: Discussed with Dr Anushka Haywood at CT of head Will get last date of carotid doppler from her facility manager histology and update if needed 08/24/2015 Appointment: JaidenLidia [address] [place], [place] [phone] 08/22 confirmed~sl ACUTE ILLNESS 08/24/2015 Patient Education: Patient Medication Summary Completed 08/24/2015 Patient Education: Patient Medication Summary Completed 08/24/2015 Care Plan: US EXAM OF HEAD AND NECK carotid Ultrasound LOIN C : 40261-1 Pending 08/24/2015 Visit Plan: Long discussion about diet A ccuchecks daily Check HbA1C, CMP Change requip to mirapex 07/05/2015 Appointment: Belia Ried WPtel: [address] [place], [place] [phone] 07/03 confirmed ~sl FOLLOW UP 07/05/2015 Patient Education: Patient Medication Summary Completed 07/05/2015 Visit Plan: Add Breo ellipta 100 1 p BID Continue SVNs with duoneb QID 06/06/2015 Appointment: Belia Reid WPtel: [address] [place], [place] [phone] Patient is calling for a ride, then retu rning our call.-sp 06/01 called and patient stated she will know saturday if she can get a ride~sl 06/05 [facility] Follow Up 06/06/2015 Patient Education: Patient [...] not improving 05/23/2015 Appointment: Huong Osborne WPtel: [address] [place], [place] [phone] ACUTE ILLNESS 05/23/2015 Appointment: Lidia Hwang [address] [place], [place] [phone] ER Follow UP 05/23/2015 Patient Education: Patient Medication Summary Completed 05/23/2015 Visit Plan: Check pancreatic enzymes and US of pancreas as patient can't understand why she has diabetes since has no family history Discussed weight, diet, exercise all play an important role in diabetes and are risk factors as well Continue Januvia and accuchecks daily 05/05/2015 Appointment: Belia Reid WPtel: [address] [place], [place] [phone] US FOLLOW UP 05/05/2015 Patient Education: Patient Medication Summary Completed 05/05/2015 Care Plan: US EXAM ABDOM COMPLETE LOINC : 97767-4 Ordered 05/05/2015 Visit Plan: Start Januvia 100mg daily [place] with diflucan and culture urine Accuchecks daily alternating times Recheck 6weeks 03/30/2015 Appointment: Belia Reid WPtel: [facility] [place] 03/29 confirmed~lb FOLLOW UP 03/30/2015 Patient Education: Patient Medication Summary Completed 03/30/2015 Appointment: Belia Reid WPtel: [address] [place], [place] [phone] [place] 03/01 needs reschedule due to payment and insurance ~ FOLLOW UP 03/02/2015 Visit Plan: Patient was just in ER last night so has not filled scripts yet Start Carafate and Flagyl and Cipro Add Hyophen 1 po BID Recheck 1mo 02/03/2015 Appointment: Belia Reid WPtel: [address] [place] [address] 02/02lm ~sl...02/03/15 appt confirmed cn ACUTE I LLNESS 02/03/2015 Patient Education: Patient Medication Summary Completed 02/03/2015 Visit Plan: Warm soaks to vaginal area K elex and Diflucan and observe Zofran to use prn 12/29/2014 Appointment: Belia Reid WPtel: [address] [place] [address] 12/28 Confirmed ~sl ACUTE ILLNESS 12/29/2014 Patient Education: Patient Medication Summary Completed 12/29/2014 Appointment: Huong Osborne WPtel: [address] [place] [address] FOLLOW UP 09/24/2014 Appointment: Belia Reid WPtel: [address] [place] [address] 09/15 confirmed -mf FOLLOW UP 09/16/2014 Visit Plan: Increase requip to 2mg po BI D Increase lyrica to 225mg total a day by adding an extra 75mg in AM Recheck in 2weeks Continue to patch left eye while sleeping 09/02/2014 Appointment: Belia Reid WPtel: [address] [place] [address] 09/01 appt confirmed cn Hospital Follow Up 09/02 Patient Education: Patient Medication Summary Completed 09/02/2014 Visit Plan: To [facility] for observat ion to R/O CVA 08/25/2014 Appointment: Huong Osborne WPtel: [address] [place] [address] ACUTE ILLNESS 08/25/2014 Patient Education: Patient Medication Summary Completed 08/25/2014 Referral: Aaron Jonas WPtel: [facility] [address] [facility], [facility] 1 [id number] [place] In [place] location Initiated 04/26/2014 Referral: Brian Srinivasan WPtel: [address] [place] [id number] [place] Referral Initiated 04/20/2014 Appointment: Belia Reid WPtel: [address] [place], [place] [phone] ER Follow UP 04/01/2014 Patient Education: Patient Medication Summary Completed 04/01/2014 Care Plan: MYELOGRAPHY NECK SPINE LOINC : 02291-5 Ordered 04/01/2014 Visit Plan: Continue Symbicort 160 at 2p BID Continue SVNs with duoneb at least QID Finish Levaquin Recheck 1mo on lyrica 03/16/2014 Appointment: Belia Reid WPtel: [address] [place], [place] [phone] 03/15 voicemail FOLLOW UP 03/16/2014 Patient Education: Patient Medication Summary Completed 03/16/2014 Visit Plan: Restart SVNs with duoneb QID Repeat prednisone Levaquin Continue symbicort Keep lyrica at same dose Recheck 1week 03/09/2014 Appointment: Belia Reid WPtel: [address] [place], [place] [phone] FOLLOW UP 03/09/2014 Patient Education: Patient Medication Summary Completed 03/09/2014 Appointment: Belia Reid WPtel: [address] [place], [place] [phone] 03/03 showed up 15 minutes late for appt -- put her on Huong's side for 10:45am FORGIVEN PER DR FOLLOW UP 03/03/2014 Appointment: Huong Osborne WPtel: [address] [place], [place] [phone] [place] FOLLOW UP 03/03/2014 Patient Education: Patient Medication Summary Completed 03/03/2014 Appointment: Huong Osborne WPtel: [address] [place], [place] [phone] ER Follow UP 03/01/2014 Patient Education: Patient Medication Summary Completed 03/01/2014 Visit Plan: Add carafate for this next m onth Increase lyrica to 150mg q HS 02/09/2014 Appointment: Belia Reid WPtel: [address] [place], [place] [phone] Hospital Follow Up 02/09/2014 Patient Education: Patient Medication Summary Completed 02/09/2014 Visit Plan: Increase omeprazole back to 40mg po BID Use requip in AM and add lyrica 75mg q HS Recheck 1mo 12/23/2013 Appointment: Belia Reid WPtel: [address] [place], [place] [phone] FOLLOW UP 12/23/2013 Patient Education: Patient Medication Summary Completed 12/23/2013 Patient Education: Patient Medication Summary Completed 12/04/2013 Appointment: Belia Reid WPtel: [address] [place], [place] [phone] [place] [address] 10/30/2013 Patient Education: Patient Medication Summary Completed 10/30/2013 Appointment: Belia Reid WPtel: [address] [place], [place] [phone] [facility] 10/21/2013 Patient Education: Patient Medication Summary Completed 10/21/2013 Visit Plan: Cryotherapy as above TAC and hydroxyzine to use prn to itching spots and itching SKs Add Advair HFA 115/21 1 p BID 10/05/2013 Appointment: Belia Reid WPtel: [address] [place], [place] [phone] 10/01 pt called and confirmed ACUTE ILLNESS Patient Education: Patient Medication Summary Completed 10/05/2013 Appointment: Belia Reid WPtel: [address] [place], [place] [phone] will pay copay and part of past balance FOLLOW U P 08/04/2013 Patient Education: Patient Medication Summary Completed 08/04/2013 Appointment: Belia Reid WPtel: [address] [place], [place] [phone] [place] INJECTION 07/13/2013 Patient Education: Patient Medication Summary Completed 07/13/2013 Appointment: Huong Osborne WPtel: [address] [place], [place] [phone] ACUTE ILLNESS 07/03/2013 Patient Education: Patient Medication Summary Completed 07/03/2013 Visit Plan: Cipro and culture urine 05/27/2013 Appointment: Huong Osborne WPtel: [address] [place], [place] [phone] 05/26 confirmed appt and notified that balance 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 is due at appt time FOLLOW UP 05/27/2013 Patient Education: Patient Medication Summary Completed 05/27/2013 Appointment: Belia Reid WPtel: [address] [place], [place] [phone] [place] UA 05/25/2013 Patient Education: Patient Medication Summary Completed 05/25/2013 Appointment: Belia Reid WPtel: [address] [place], [place] [phone] [place] INJECTION 05/04/2013 Patient Education: Patient Medication Summary Completed 05/04/2013 Appointment: Belia Reid WPtel: [address] [place], [place] [phone] [place] INJECTION 04/17/2013 Patient Education: Patient Medication Summary Completed 04/17/2013 Appointment: Belia Reid WPtel: [address] [place], [place] [phone] [place] INJECTION 04/15/2013 Appointment: Belia Reid WPtel: [address] [place], [place] [phone] [place] 04/02 vm FOLLOW UP 04/06/2013 Patient Education: Patient Medication Summary Completed 04/06/2013 Visit Plan: Obtain lab results including UA from [facility] 11/10/2012 Appointment: Belia Reidtel: [address] [place] [address] ER Follow UP 11/10/2012 Patient Education: Patient Medication Summary Completed 11/10/2012 Appointment: Belia Reid WPtel: [address] [place] [address] 10/30/12 patient canceled appt due to fin ances. Offered to work something out, patient declined-LB FOLLOW UP 11/05/2012 Visit Plan: Continue Bystolic at current dose Pt has fwup with Neurology on September 16 09/02/2012 Appointment: Belia Reid WPtel: [address] [place] [address] FOLLOW UP 09/02/2012 Patient Education: Patient Medication Summary Completed 09/02/2012 Visit Plan: Continue bystolic at 5mg chris ly Sees Neurology tomorrow Use oxygen at bedtime 08/04/2012 Appointment: Belia Reid WPtel: [address] [place] [address] FOLLOW UP 08/04/2012 Patient Education: Patient Medication Summary Completed 08/04/2012 Appointment: Belia Reidtel: [address] [place] [address] Hospital fwup for 07/21/12. merged appointments FOLLOW UP 07/24/2012 Visit Plan: Start Bystolic 5mg daily for tachycardia Fwup with neurology for further workup Overnight O2 sat 07/21/2012 Appointment: Belia Reid WPtel: [address] [place] [address] Hospital Follow Up 07/21/2012 Patient Education: Patient Medication Summary Completed 07/21/2012 Visit Plan: SVN with Albuterol QID Add A velox 400mg daily Notify if worsens or persists 07/02/2012 Appointment: Belia Reid WPtel: [address] [place], [place] [phone] ACUTE ILLNESS 07/02/2012 Patient Education: Patient Medication Summary Completed 07/02/2012 Appointment: Belia Reidtel: [address] [place], [place] [phone] [place] INJECTION 06/25/2012 Patient Education: Patient Medication Summary Completed 06/25/2012 Appointment: Belia Reid WPtel: [address] [place] [address] FOLLOW UP 06/24/2012 Patient Education: Patient Medication Summary Completed 06/24/2012 Appointment: Belia Reid WPtel: [address] [place] [address] 05/19 [facility] FOLLOW UP 05/20/2012 Patient Education: Patient [...] po TID 05/08/2012 Appointment: Belia Reid WPtel: [address] [place] [address] ACUTE ILLNESS 05/08/2012 Patient Education: Patient Medication Summary Completed 05/08/2012 Visit Plan: Continue current meds Contin ue lower dose on pain meds and Diazepam Still waiting on paperwork for botox for Migraines Will restart Neurontin at 600mg po q HS Pt going to stop Depakote due to can't afford 04/22/2012 Appointment: Belia Reidtel: [address] [place] [address] 04/21 Hospital Follow Up 04/22/2012 Patient Education: Patient Medication Summary Completed 04/22/2012 Visit Plan: Injection to shoulder as abo ve Continue current meds Has appointment with neurology on HAs in 02/13/2012 Appointment: Belia Reid WPtel: [address] [place], [place] [phone] Pt does not have $10 copay at [facility] t time - will bring it in next week. Kianna iqbal'ed this. - [place] FOLLOW UP 02/13/2012 Patient Education: Patient Medication Summary Completed 02/13/2012 Visit Plan: Proceed with headache specia list Change nexium to Protonix Phenergan to use prn Sumatriptan to use prn Pt still on Inderal 01/28/2012 Appointment: Belia Reid WPtel: [address] [place], [place] [phone] ER Follow UP 01/28/2012 Patient Education: Patient [...] for sleep 12/26/2011 Appointment: Belia Reid WPtel: [address] [place] [address] 12/24- appt. confirmed FOLLOW UP 2 Patient Education: Patient Medication Summary Completed 12/26/2011 Appointment: Belia Reid WPtel: [address] [place], [place] [phone] [place] FOLLOW UP 11/14/2011 Patient Education: Patient Medication Summary Completed 11/14/2011 Appointment: Belia Reid WPtel: [address] [place], [place] [phone] [place] FOLLOW UP 09/12/2011 Patient Education: Patient Medication Summary Completed 09/12/2011 Visit Plan: Supportive care Decrease Liseth catalino to 50mg q HS Decrease AM dose of Valium to 5mg q HS Use Endocet sparingly 08/15/2011 Appointment: Belia Reid WPtel: [address] [place], [place] [phone] ER Follow UP 08/15/2011 Patient Education: Patient Medication Summary Completed 08/15/2011 Appointment: Belia Reid WPtel: [address] [place], [place] [phone] [place] Spoke directly to patient yesterday and confirmed the appoin tment. cn ACUTE ILLNESS 08/09/2011 Patient Education: Patient Medication Summary Completed 08/09/2011 Appointment: Belia Reid WPtel: [address] [place], [place] [phone] Hospital Follow Up 07/03/2011 Patient Education: Patient Medication Summary Completed 07/03/2011 Appointment: Belia Reid WPtel: [address] [place], [place] [phone] [place] FOLLOW UP 06/04/2011 Patient Education: Patient Medication Summary Completed 06/04/2011 Visit Plan: Pt. wants "allergy shot" but in fact wants steroid shot. Will take a break from "generic Zyrtec they are getting from [facility]" and try Singulair for 2 weeks. 05/03/2011 Appointment: Iraida Jones WPtel: [address] [place] [address] ACUTE ILLNESS 05/03/2011 Patient Education: Patient Medication Summary Completed 05/03/2011 Visit Plan: Neurontin 400mg q HS for 1we ek then 800mg q HS Decrease requip to 1mg q HS for 2wks then stop Fwup 2mos 04/05/2011 Appointment: Belia Reid WPtel: [address] [place], [place] [phone] [place] FOLLOW UP 04/05/2011 Patient Education: Patient Medication Summary Completed 04/05/2011 Visit Plan: Trial of neurontin in 2wks C ontinue current meds for stomach Pt has procedure with Dr. Ortiz next week for stone removal 03/08/2011 Appointment: Belia Reid WPtel: [address] Follow Up 03/08/2011 Patient Education: Patient Medication Summary Completed 03/08/2011 Appointment: Belia Reid WPtel: [address] [place] [address] FOLLOW UP 02/19/2011 Visit Plan: reports increased [...] with Flagyl 01/24/2011 Appointment: Iraida Jones WPtel: [address] [place] [address] ACUTE ILLNESS 01/24/2011 Patient Education: Patient Medication Summary Completed 01/24/2011 Appointment: Belia eRid WPtel: [address] [place] [address] FOLLOW UP 01/02/2011 Patient Education: Patient Medication Summary Completed 01/02/2011 Appointment: Belia Reid WPtel: [address] [place] [address] FOLLOW UP 12/12/2010 Appointment: Belia Reid WPtel: [address] [place] [address] ACUTE ILLNESS 12/07/2010 Patient Education: Patient Medication Summary Completed 12/07/2010 Visit Plan: Increase Buspar to 10mg po B ID 11/16/2010 Appointment: Belia Reid WPtel: [address] [place] [address] FOLLOW UP 11/16/2010 Patient Education: Patient Medication Summary Completed 11/16/2010 Appointment: Iraida Jones WPtel: [address] [place] [address] Follow UP 11/02/2010 Patient Education: Patient Medication Summary Completed 11/02/2010 Visit Plan: Depo-Medrol/Kenalog given fo r allergies Add BuSpar for anxiety Oxycodone one p.o. q.i.d. for number 120 refilled 10/18/2010 Appointment: Belia Reidtel: [address] [place] [address] FOLLOW UP 10/18/2010 Patient Education: Patient Medication Summary Completed 10/18/2010 Visit Plan: Continue current meds Discus sed epidurals for back vs PT--will proceed with epidurals to thoracolumbar region to see if helps with pain 09/19/2010 Appointment: Belia Reidtel: [address] [place] [address] FOLLOW UP 09/19/2010 Patient Education: Patient Medication Summary Completed 09/19/2010 Visit Plan: DC MS contin Check CT scan t horacic spine Fwup pending above results 09/06/2010 Appointment: Belia Reidtel: [address] [place] [address] FOLLOW UP 09/06/2010 Patient Education: Patient Medication Summary Completed 09/06/2010 Visit Plan: Continue current meds Restar t MS contin 15mg po BID and use oxycodone prn Use daily senokot-s 2 po BID 08/10/2010 Appointment: Belia Reidtel: [address] [place] [address] [place] FOLLOW UP 08/10/2010 Patient Education: Patient Medication Summary Completed 08/10/2010 Visit Plan: Depomedrol/Kenalog given Pt sees ENT later this month Cont current meds Mammo scheduled 05/11/2010 Appointment: Belia Reidtel: [address] [place] [address] [place] FOLLOW UP 05/11/2010 Patient Education: Patient Medication Summary Completed 05/11/2010 Appointment: Belia Reidtel: [address] [place] [address] [place] UA 05/04/2010 Patient Education: Patient Medication Summary Completed 05/04/2010 Visit Plan: Pt sent to lab for UA 04/28/2010 Appointment: Belia Reidtel: [address] [place], [place] [phone] [facility] 04/28/2010 Patient Education: Patient Medication Summary Completed 04/28/2010 Visit Plan: Check CT angiogram of chest Restart Advair Use proair prn Cont current meds Fwup with Card as schedulec 04/06/2010 Appointment: Belia Reid WPtel: [address] [place] [address] Hospital Follow Up 04/06/2010 Patient Education: Patient Medication Summary Completed 04/06/2010 Visit Plan: Paperwork filled out for pow erchair Depomedrol/kenalog given Pt sees ENT in 2wks to assess nasal obstruction problems 02/09/2010 Appointment: Belia Reid WPtel: [address] [place], [place] [phone] ESTABLISHED PATIENT 02/09/2010 Patient Education: Patient Medication Summary Completed 02/09/2010 Visit Plan: Change Elavil to Trazadone 1 50mg q HS Diflucan and nystatin for tinea cruris 01/05/2010 Appointment: Belia Reid WPtel: [address] [place], [place] [phone] FOLLOW UP 01/05/2010 Patient Education: Patient Medication Summary Completed 01/05/2010 Appointment: Belia Reid WPtel: [address] [place], [place] [phone] FOLLOW UP 12/07/2009 Patient Education: Patient Medication Summary Completed 12/07/2009 Appointment: Belia Reid WPtel: [address] [place], [place] [phone] FOLLOW UP 11/22/2009 Visit Plan: Cont current meds and await MRI results from Dr. Meadows's office and his final recommendations Will need to follow-up at later date on deviated septum 11/08/2009 Appointment: Belia Reid WPtel: [address] [place] [address] FOLLOW UP 11/08/2009 Patient Education: Patient Medication Summary Completed 11/08/2009 Visit Plan: Cont PT/OT See Neurosurgery Cont Tortoise shell brace 10/24/2009 Appointment: Belia Reid WPtel: [address] [place] [address] FOLLOW UP 10/24/2009 Patient Education: Patient Medication Summary Completed 10/24/2009 Appointment: Belia Reid WPtel: [address] [place] [address] Follow Up 10/17/2009 Appointment: Belia Reid WPtel: [address] [place] [address] ACUTE ILLNESS 07/25/2009 Patient Education: Patient Medication Summary Completed 07/25/2009 Appointment: Belia Reid WPtel: [address] [place] [address] FOLLOW UP 05/26/2009 Patient Education: Patient Medication Summary Completed 05/26/2009 Referral: Chino Balderas WPtel: [facility] Referral Initiated Referral: Merry Vale WPtel: [facility] [id number] [address] Vale will review referral and book appointment Completed Referral: Francisco Javier Yoder WPtel: [address] [id number] Patient needs EGD insurance will not inc rease a medication unless this procedure results show a need Completed Referral: Francisco Javier Yoder WPtel: [address] [place] [address] [place] Referral Historical Reference Referral: Francisco Javier [...] last date of carotid doppler from her facility manager histology and update if needed . Long discussion [...] from "generic Zyrtec they are getting from [facility]" and try Singulair for 2 weeks. . [...]
--- OUTSIDE RECORDS SUMMARY | 2019-09-04 09:32 | XMS REPORT | CCD ---
Author Author Diana Reid D.O. 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 Name Role Phone [facility] PP Unavailable CCM Unavailable Summary Purpose Interface Exchange Insurance Providers Payer name Policy type / Coverage type Covered alliance party ID Effective Begin Date Effective End Date [employer] MEDICARE Medicare Part B [id number] 2019 Unknown Family History Family History data not found Social History Social History Element Codes Description Effective Dates Tobacco history SNOMED CT: 555075120 Nonsmoker 09/13/2010 Allergies, Adverse Reactions, Alerts Substance Reaction Codes Entered Date Inactivated Date Status Eggs reaction 21624133 09/15/2015 No Inactive Date Active _ Unknown [...] Fill Instructions baclofen 10 mg tablet RxNorm: 932076 1 Tablet(s) Oral QD for pa in/spasm 08/25/2019 09/24/2019 Active meloxicam 15 mg tablet RxNorm: 981706 1 Tablet(s) Oral QD for pain 08/25/2019 09/24/2019 Active Insulin Syringe 1 mL 29 gauge x 1/2" RxNorm: 2 s yringes daily with insulin Dx: E11.65 08/12/2019 No Stop Date Active Ativan 0.5 mg tablet RxNorm: 477116 1 Tablet(s) Oral th ree times a day for anxiety/shortness of air/stridor 07/29/2019 08/27/2019 Inactive Singulair 10 mg tablet RxNorm: 867127 1 Tablet(s) Oral QPM 07/29/19 20 01/25/2020 Active diltiazem CD 240 mg capsule,extended release 24 hr RxNorm: 8 95167 1 Capsule(s) Oral QD 07/15/2019 01/10/2020 Active metoprolol tartrate 50 mg tablet RxNorm: 323581 1 Table t(s) Oral two times a day 07/06/2019 No Stop Date Active Novolin N NPH U-100 Insulin isophane 100 unit/mL subcu taneous susp RxNorm: 603105 25 Unit(s) Subcutaneous two times a day 07/06/2019 07/06/2019 I nactive Colestid 1 gram tablet RxNorm: 3991561 1 Tablet(s) Oral two times a day for diarrhea 07/06/2019 09/04/2019 Active pramipexole 1 mg tablet RxNorm: 303716 1 Tablet(s) Oral QPM FOR RESTLESS LEGS (REPLACES REQUIP) 06/25/2019 06/19/2020 Active hydroxyzine HCl 25 mg tablet RxNorm: 726015 1 Tablet(s) Oral QPM for itching/aniety 06/25/2019 09/23/2019 Active Ativan 0.5 mg tablet RxNorm: 627649 1 Tablet(s) Oral th ree times a day for anxiety/shortness of air/stridor 06/25/2019 07/25/2019 Inactive Levaquin 500 mg tablet RxNorm: 989529 1 Tablet(s) Oral QD 06/16/2019 06/23/2019 Inactive Flagyl 500 mg tablet RxNorm: 700755 1 Tablet(s) Oral three time s a day 06/16/2019 06/23/2019 Inactive Vancocin 125 mg capsule RxNorm: 652652 1 Capsule(s) Oral four t imes a day 06/08/2019 06/18/2019 Inactive omeprazole 40 mg capsule,delayed release RxNorm: 019745 1 Capsule(s) Oral two times a day 05/26/2019 11/21/2019 Active Flagyl 500 mg tablet RxNorm: 478624 1 Tablet(s) Oral three time s a day 05/26/2019 06/05/2019 Inactive diltiazem CD 240 mg capsule,extended release 24 hr RxNorm: 8 14616 1 Capsule(s) Oral QD 05/26/2019 07/14/2019 Inactive Cipro 250 mg tablet RxNorm: 576277 1 Tablet(s) Oral two times a day 05/26/2019 06/02/2019 Inactive hydroxyzine HCl 25 mg tablet RxNorm: 255896 1 Tablet(s) Oral QPM for itching/aniety 05/21/2019 06/24/2019 Inactive metoprolol tartrate 25 mg tablet RxNorm: 240570 1 Table t(s) Oral two times a day 05/21/2019 07/05/2019 Inactive hydroxyzine HCl 25 mg tablet RxNorm: 852196 1 Tablet(s) Oral QPM for itching/aniety 05/13/2019 05/20/2019 Inactive Singulair 10 mg tablet RxNorm: 932599 1 Tablet(s) Oral QPM 05/06/1905/12/2019 Inactive gabapentin 600 mg tablet RxNorm: 582723 1 Tablet(s) Oral QD 020 06/05/2019 Inactive Valium 5 mg tablet RxNorm: 068575 1 Tablet(s) Oral QPM for stri joao/muscle spasm 04/29/2019 06/24/2019 Inactive baclofen 10 mg tablet RxNorm: 563308 1 Tablet(s) Oral QPM for s pasm/neck pain 04/24/2019 05/23/2019 Inactive baclofen 10 mg tablet RxNorm: 531086 1 Tablet(s) Oral QPM for s pasm/neck pain 04/24/2019 04/23/2019 Inactive Novolin N NPH U-100 Insulin isophane 100 unit/mL subcu taneous susp RxNorm: 559737 23 Unit(s) Subcutaneous two times a day 04/20/2019 07/05/2019 I nactive cyclobenzaprine 5 mg tablet RxNorm: 976342 1 Tablet(s) Oral three times a day as needed 04/16/2019 04/23/2019 Inactive hydroxyzine HCl 25 mg tablet RxNorm: 001246 1 Tablet(s) Oral three times a day for itching/aniety 04/08/2019 05/12/2019 Inactive gabapentin 600 mg tablet RxNorm: 290659 1 Tablet(s) Oral two ti mes a day 04/08/2019 05/05/2019 Inactive gabapentin 600 mg tablet RxNorm: 790739 1 Tablet(s) Oral two ti mes a day 04/08/2019 04/07/2019 Inactive Novolin N NPH U-100 Insulin isophane 100 unit/mL subcu taneous susp RxNorm: 111075 10 Unit(s) Subcutaneous two times a day 03/03/2019 04/19/2019 I nactive gabapentin 300 mg capsule RxNorm: 607490 1 Capsule(s) O ral every night at bedtime for neuropathy 02/26/2019 04/07/2019 Inactive gabapentin 300 mg capsule RxNorm: 335544 1 Capsule(s) O ral every night at bedtime for neuropathy 02/20/2019 02/25/2019 Inactive buspirone 5 mg tablet RxNorm: 109836 TAKE 1 TABLET THREE TIMES MILDRED Y 02/12/2019 05/12/2019 Inactive pramipexole 1 mg tablet RxNorm: 493279 1 Tablet(s) Oral QPM FOR RESTLESS LEGS (REPLACES REQUIP) 02/12/2019 06/24/2019 Inactive Lexapro 10 mg tablet RxNorm: 848995 TAKE 1 TABLET EVERY DAY FOR MOO D 01/31/2019 No Stop Date Active Ativan 0.5 mg tablet RxNorm: 392554 TAKE 1 TABLET BY MO UT THREE TIMES DAILY NEEDED FOR ANXIETY 01/26/2019 04/28/2019 Inactive Ativan 0.5 mg tablet RxNorm: 249317 TAKE 1 TABLET BY MO UT THREE TIMES DAILY NEEDED FOR ANXIETY 01/05/2019 01/05/2019 Inactive Levaquin 500 mg tablet RxNorm: 259260 1 Tablet(s) Oral QD 12/25/2018 12/24/2018 Inactive Levaquin 500 mg tablet RxNorm: 824454 1 Tablet(s) Oral QD 12/25/2018 01/04/2019 Inactive baclofen 10 mg tablet RxNorm: 454393 1 Tablet(s) Oral three maico es a day 11/20/2018 01/19/2019 Inactive Ativan 0.5 mg tablet RxNorm: 966830 TAKE 1 TABLET BY WA UT THREE TIMES DAILY NEEDED FOR ANXIETY 11/20/2018 01/04/2019 Inactive gabapentin 300 mg capsule RxNorm: 424360 1 Capsule(s) O ral every night at bedtime for neuropathy 11/20/2018 12/20/2018 Inactive Lexapro 10 mg tablet RxNorm: 037287 1 Tablet(s) PO QD for mood 07/201801/30/2019 Inactive Zithromax Z-Lj 250 mg tablet RxNorm: 137949 Tablet(s) PO take as directed 11/04/2018 11/19/2018 Inactive Insulin Syringe 1 mL 29 gauge x 1/2" RxNorm: 2 s yringes daily with insulin Dx: E11.65 10/08/2018 08/11/2019 Inactive gabapentin 300 mg capsule RxNorm: 577103 1 Capsule(s) PO QHS fo r neuropathy 09/18/2018 10/17/2018 Inactive cyclobenzaprine 5 mg tablet RxNorm: 458586 1 Tablet(s) PO TID a s needed 09/09/2018 09/08/2018 Inactive cyclobenzaprine 5 mg tablet RxNorm: 439655 1 Tablet(s) PO TID a s needed 09/09/2018 10/08/2018 Inactive prednisone 20 mg tablet RxNorm: 932929 1 Tablet(s) PO QD 09/08/2018 0 09/12/2018 Inactive Natalie Greenberg U-100 Insulin 100 unit/mL (3 mL) subcu taneous pen RxNorm: 188511 55 Unit(s) SQ QAM 08/28/2018 11/03/2018 Inactive hydroxyzine HCl 25 mg tablet RxNorm: 834842 1 Tablet(s) PO QHS for itching 08/20/2018 05/12/2019 Inactive Lexapro 10 mg tablet RxNorm: 241382 1 Tablet(s) PO QD for mood 08/0210/18/2018 Inactive sumatriptan 100 mg tablet RxNorm: 086076 1 Tablet(s) PO at headache onset. May repeat 1 in two hours if headache remains. Max of 2 per 24 hours 04/02/2018 05/20/2018 Inactive Diflucan 150 mg tablet RxNorm: 514302 1 Tablet(s) PO QD 03/18/2018 Inactive Diflucan 150 mg tablet RxNorm: 226808 1 Tablet(s) PO QD 03/18/2018 Inactive Flagyl 500 mg tablet RxNorm: 714155 1 Tablet(s) PO TID 03/17/2018 Inactive Levaquin 500 mg tablet RxNorm: 157808 1 Tablet(s) PO QD 03/17/2018 Inactive Levaquin 500 mg tablet RxNorm: 613815 1 Tablet(s) PO QD 03/17/2018 Inactive Flagyl 500 mg tablet RxNorm: 914191 1 Tablet(s) PO TID 03/17/2018 Inactive ketoconazole 200 mg tablet RxNorm: 175707 1 Tablet(s) PO QD 019 03/19/2018 Inactive Celebrex 200 mg capsule RxNorm: 717610 1 Capsule(s) PO BID 02/06/20 18 05/20/2018 Inactive tramadol 50 mg tablet RxNorm: 886342 1 Tablet(s) PO TID as needed 1 04/08/2017 05/20/2018 Inactive gabapentin 300 mg capsule RxNorm: 470863 1 Capsule(s) PO BID 201705/20/2018 Inactive Diflucan 150 mg tablet RxNorm: 266701 1 Tablet(s) PO QD 01/20/2018 Inactive pramipexole 1 mg tablet RxNorm: 532418 1 Tablet(s) PO Q PM FOR RESTLESS LEGS (REPLACES REQUIP) 01/08/2018 02/11/2019 Inactive cyclobenzaprine 10 mg tablet RxNorm: 420436 1 Tablet(s) PO TID as needed for muscle spasm 12/17/2017 05/20/2018 Inactive pramipexole 1 mg tablet RxNorm: 270055 TAKE 1 TABLET BY MOUTH ONCE DAILY IN THE EVENING FOR RESTLESS LEGS (REPLACES REQUIP) 12/04/2017 01/05/2018 Inac tive Amaryl 4 mg tablet RxNorm: 093959 1 Tablet(s) PO BID replaces 2mg 0 11/05/2017 12/16/2017 Inactive Singulair 10 mg tablet RxNorm: 994983 1 Tablet(s) PO QHS for al lergies/lungs 10/30/2017 12/16/2017 Inactive Diflucan 100 mg tablet RxNorm: 581090 1 Tablet(s) PO QD 10/23/2017 Inactive Ativan 0.5 mg tablet RxNorm: 284622 TAKE 1 TABLET BY MOUTH THRE E TIMES DAILY 08/30/2017 11/20/2018 Inactive buspirone 5 mg tablet RxNorm: 914282 1 Tablet(s) PO TID 07/11/2017 Inactive propranolol 60 mg tablet RxNorm: 583082 1 Tablet(s) PO BID repl aces 40mg dose 06/26/2017 12/16/2017 Inactive Amaryl 4 mg tablet RxNorm: 618270 1 Tablet(s) PO BID replaces 2mg 0 06/12/2017 11/05/2017 Inactive omeprazole 40 mg capsule,delayed release RxNorm: 049594 1 Capsule(s) PO BID TAKE ONE CAPSULE BY MOUTH TWICE DAILY 05/30/2017 11/25/2017 Inactive pramipexole 1 mg tablet RxNorm: 225421 1 Tablet(s) PO Q PM for restless legs--replaces requip 05/30/2017 11/25/2017 Inactive amitriptyline 50 mg tablet RxNorm: 943911 1 Tablet(s) PO QHS 201709/16/2017 Inactive Diflucan 100 mg tablet RxNorm: 804381 1 Tablet(s) PO BID 05/07/2017 0 05/20/2017 Inactive nystatin (bulk) 100 million unit powder RxNorm: Application TO P BID 05/07/2017 05/20/2018 Inactive cholestyramine (with sugar) 4 gram oral powder RxNorm: 172764 1 Unit Dose PO QD 05/07/2017 01/20/2018 Inactive Ativan 0.5 mg tablet RxNorm: 520093 TAKE ONE TABLET BY MOUTH TH REE TIMES DAILY 05/01/2017 09/02/2017 Inactive Trulicity 1.5 mg/0.5 mL subcutaneous pen injector RxNorm: 15 05596 1 Unit Dose SQ WEEKLY 02/22/2017 03/23/2017 Inactive doxycycline hyclate 100 mg capsule RxNorm: 9743423 1 Capsule(s) PO BID 01/23/2017 02/05/2017 Inactive Amaryl 4 mg tablet RxNorm: 218368 1 Tablet(s) PO BID replaces 2mg 1 03/25/2016 05/22/2017 Inactive magnesium oxide 400 mg capsule RxNorm: 795686 1 Capsule(s) PO QD 07/18/2017 Inactive Ativan 0.5 mg tablet RxNorm: 405181 TAKE ONE TABLET BY MOUTH TH REE TIMES DAILY 01/17/2017 05/01/2017 Inactive Amaryl 2 mg tablet RxNorm: 083904 1 Tablet(s) PO BID 12/27/201601/22 Inactive Amaryl 2 mg tablet RxNorm: 432967 1 Tablet(s) PO BID 12/26/201612/26 Inactive Ativan 0.5 mg tablet RxNorm: 184640 TAKE ONE TABLET BY MOUTH TH REE TIMES DAILY 12/05/2016 01/18/2017 Inactive pramipexole 1 mg tablet RxNorm: 628171 1 Tablet(s) PO Q PM for restless legs--replaces requip 11/26/2016 05/30/2017 Inactive Mobic 15 mg tablet RxNorm: 409278 1 Tablet(s) PO QD 10/08/20162016 Inactive cyclobenzaprine 5 mg tablet RxNorm: 607944 1/2- 1 Tablet(s) PO TID 10/08/2016 10/17/2016 Inactive Ativan 0.5 mg tablet RxNorm: 175636 1 Tablet(s) PO TID 09/20/201607/2016 Inactive amitriptyline 50 mg tablet RxNorm: 116398 1 Tablet(s) PO QHS 201605/30/2017 Inactive propranolol 60 mg tablet RxNorm: 051098 1 Tablet(s) PO BID repl aces 40mg dose 09/19/2016 06/26/2017 Inactive Ativan 0.5 mg tablet RxNorm: 564651 1 Tablet(s) PO TID 08/20/2016 Inactive omeprazole 40 mg capsule,delayed release RxNorm: 735739 1 Capsule(s) PO BID TAKE ONE CAPSULE BY MOUTH TWICE DAILY 08/20/2016 05/30/2017 Inactive amitriptyline 50 mg tablet RxNorm: 136326 1 Tablet(s) PO QHS 201609/18/2016 Inactive pramipexole 1 mg tablet RxNorm: 808786 1 Tablet(s) PO Q PM for restless legs--replaces requip 07/23/2016 11/25/2016 Inactive Amaryl 2 mg tablet RxNorm: 066325 1 Tablet(s) PO BID 07/23/201612/27 Inactive propranolol 40 mg tablet RxNorm: 237732 1 Tablet(s) PO BID 07/13/1909/18/2016 Inactive Ativan 0.5 mg tablet RxNorm: 665693 1 Tablet(s) PO QID 06/19/2016 Inactive Amaryl 2 mg tablet RxNorm: 199601 1 Tablet(s) PO BID 06/19/201607/22 Inactive Ativan 0.5 mg tablet RxNorm: 165132 1 Tablet(s) PO QID 06/19/2016 Inactive buspirone 5 mg tablet RxNorm: 562482 1 Tablet(s) PO TID 06/19/2016 Inactive Ativan 0.5 mg tablet RxNorm: 571193 1 Tablet(s) PO BID 05/24/2016 Inactive buspirone 5 mg tablet RxNorm: 811835 1 Tablet(s) PO TID 05/23/2016 Inactive Macrobid 100 mg capsule RxNorm: 753000 1 Capsule(s) PO QOD 05/03/19 17 10/07/2016 Inactive pramipexole 1 mg tablet RxNorm: 411688 Tablet(s) 1 Tabl et(s) PO QPM for restless legs--replaces requip 04/26/2016 06/24/2016 Inactive propranolol 40 mg tablet RxNorm: 603050 TAKE ONE TABLET BY MOUT H TWICE DAILY 04/26/2016 06/24/2016 Inactive Detrol LA 4 mg capsule,extended release RxNorm: 413947 1 Capsul e(s) PO QHS 04/03/2016 05/02/2016 Inactive prednisone 20 mg tablet RxNorm: 498974 1 Tablet(s) PO QD 02/29/2016 0 03/04/2016 Inactive Actos 30 mg tablet RxNorm: 132174 TAKE ONE TABLET BY MOUTH ONCE DAILY 02/27/2016 12/19/2016 Inactive clindamycin 300 mg capsule RxNorm: 073046 1 Capsule(s) PO TID 02/0102/08/2016 Inactive Flagyl 500 mg tablet RxNorm: 483857 1 Tablet(s) PO BID 02/02/201609/2015 Inactive omeprazole 40 mg capsule,delayed release RxNorm: 586708 TAKE ONE CAPSULE BY MOUTH TWICE DAILY 01/15/2016 07/12/2016 Inactive gabapentin 300 mg capsule RxNorm: 114624 1 Capsule(s) PO QAM an d 2 po q HS 01/05/2016 06/18/2016 Inactive gabapentin 300 mg capsule RxNorm: 583376 1 Capsule(s) P O BID 1 Capsule(s) PO QHS 12/05/2015 01/04/2016 Inactive cyclobenzaprine 10 mg tablet RxNorm: 467301 1 Tablet(s) PO TID for spasm as needed for muscle spasm 12/05/2015 06/18/2016 Inactive ciprofloxacin 250 mg tablet RxNorm: 216358 1 Tablet(s) PO BID 12/0412/14/2015 Inactive pramipexole 1 mg tablet RxNorm: 070556 Tablet(s) 1 Tabl et(s) PO QPM for restless legs--replaces requip 11/07/2015 11/26/2016 Inactive Januvia 100 mg tablet RxNorm: 943716 1 Tablet(s) PO QD 10/26/201504/2015 Inactive propranolol 40 mg tablet RxNorm: 676419 TAKE ONE TABLET BY MOUT H TWICE DAILY 10/25/2015 04/21/2016 Inactive gabapentin 300 mg capsule RxNorm: 448559 1 Capsule(s) PO QHS 201512/04/2015 Inactive Cipro 500 mg tablet RxNorm: 000145 1 Tablet(s) PO BID 10/05/201511/2015 Inactive pramipexole 1 mg tablet RxNorm: 139037 Tablet(s) 1 Tabl et(s) PO QPM for restless legs--replaces requip 10/04/2015 11/02/2015 Inactive propranolol 40 mg tablet RxNorm: 765311 TAKE ONE TABLET BY MOUT H TWICE DAILY 09/26/2015 10/24/2015 Inactive Amaryl 2 mg tablet RxNorm: 325716 1 Tablet(s) PO QD 09/15/20152016 Inactive gabapentin 300 mg capsule RxNorm: 197224 1 Capsule(s) PO QHS 201510/14/2015 Inactive buspirone 5 mg tablet RxNorm: 613337 1 Tablet(s) PO TID 09/15/2015 Inactive pramipexole 1 mg tablet RxNorm: 607218 Tablet(s) 1 Tabl et(s) PO QPM for restless legs--replaces requip 09/08/2015 10/03/2015 Inactive pramipexole 1 mg tablet RxNorm: 519015 1 Tablet(s) PO Q PM for restless legs--replaces requip 08/08/2015 09/08/2015 Inactive Amaryl 2 mg tablet RxNorm: 804262 1 Tablet(s) PO QD 07/07/20152015 Inactive pramipexole 1 mg tablet RxNorm: 958597 1 Tablet(s) PO Q PM for restless legs--replaces requip 07/05/2015 08/03/2015 Inactive ropinirole 2 mg tablet RxNorm: 457250 TAKE ONE TABLET BY MOUTH TWICE DAILY 05/09/2015 09/14/2015 Inactive Diflucan 100 mg tablet RxNorm: 960478 1 Tablet(s) PO QD 03/30/2015 Inactive propranolol 40 mg tablet RxNorm: 057509 1 Tablet(s) PO BID 02/24/20 15 08/21/2015 Inactive [SAVINGS FOR UNINSURED PATIE NTS -- BIN:712105, PCN: ASPROD1, Group: AME08, ID# [id number], Process claim through [employer], for questions: . THIS IS NOT INSURANCE.] Flagyl 500 mg tablet RxNorm: 217029 1 Tablet(s) PO BID 02/03/201502/2015 Inactive Cipro 500 mg tablet RxNorm: 086314 1 Tablet(s) PO BID 02/03/201502/01 Inactive Carafate 1 gram tablet RxNorm: 963786 1 Tablet(s) PO QID make i nto slurry 02/03/2015 09/14/2015 Inactive ondansetron HCl 4 mg tablet RxNorm: 271178 1 Tablet(s) PO Q4H as needed for nausea 12/29/2014 01/04/2016 Inactive Diflucan 100 mg tablet RxNorm: 472601 1 Tablet(s) PO QD 12/29/2014 Inactive Keflex 500 mg capsule RxNorm: 701359 1 Capsule(s) PO TID 12/29/2014 1 03/09/2014 Inactive omeprazole 40 mg capsule,delayed release RxNorm: 074997 1 Capsu le(s) PO BID 12/27/2014 12/21/2015 Inactive [SAVINGS FOR UNINSUR ED PATIENTS -- BIN:416638, PCN: ASPROD1, Group: AME08, ID# [id number], Process claim through [employer], for questions: . THIS IS NOT INSURANCE.] ropinirole 2 mg tablet RxNorm: 921846 1 Tablet(s) PO BID 09/29/2014 0 03/27/2015 Inactive [SAVINGS FOR UNINSURED PATIENTS -- BIN:0 22471, PCN: ASPROD1, Group: AME08, ID# [id number], Process claim through [employer], for questions: . THIS IS NOT INSURANCE.] buspirone 5 mg tablet RxNorm: 698109 1 Tablet(s) PO TID 09/17/2014 Inactive ropinirole 2 mg tablet RxNorm: 142911 1 Tablet(s) PO BID 09/02/2014 0 09/28/2014 Inactive [SAVINGS FOR UNINSURED PATIENTS -- BIN:0 98008, PCN: ASPROD1, Group: AME08, ID# [id number], Process claim through [employer], for questions: . THIS IS NOT INSURANCE.] Zyrtec 10 mg tablet RxNorm: 3862210 1 Tablet(s) PO QD 09/02/201412/02 Inactive propranolol 40 mg tablet RxNorm: 332363 1 Tablet(s) PO BID 07/21/19 15 02/23/2015 Inactive [SAVINGS FOR UNINSURED PATIE NTS -- BIN:515838, PCN: ASPROD1, Group: AME08, ID# [id number], Process claim through [employer], for questions: . THIS IS NOT INSURANCE.] ropinirole 2 mg tablet RxNorm: 106139 1 Tablet(s) PO QHS 05/14/2014 0 09/01/2014 Inactive [SAVINGS FOR UNINSURED PATIENTS -- BIN:0 07330, PCN: ASPROD1, Group: AME08, ID# [id number], Process claim through [employer], for questions: . THIS IS NOT INSURANCE.] cyclobenzaprine 10 mg tablet RxNorm: 743841 1 Tablet(s) PO QHS for spasm 04/06/2014 09/01/2014 Inactive ipratropium-albuterol 0.5 mg-3 mg(2.5 mg base)/3 mL ne bulization soln RxNorm: 1038006 1 Unit Dose INH Q4H 03/16/2014 No Stop Date Active [SAVINGS FOR UNINSURED PATIENTS -- BIN:796126, PCN: ASPROD1, Group: AME08, ID# [id number], Process claim through [employer], for questions: . THIS IS NOT INSURANCE.] prednisone 20 mg tablet RxNorm: 522981 1 Tablet(s) PO BID 03/09/2014 03/15/2014 Inactive [SAVINGS FOR UNINSURED PATIENTS -- BIN:0 73687, PCN: ASPROD1, Group: AME08, ID# [id number], Process claim through [employer], for questions: . THIS IS NOT INSURANCE.] ipratropium-albuterol 0.5 mg-3 mg(2.5 mg base)/3 mL ne bulization soln RxNorm: 6704861 1 Unit Dose INH Q4H 03/09/2014 03/15/2014 Inactive [SAVINGS FOR UNINSURED PATIENTS -- BIN:835162, PCN: ASPROD1, Group: AME08, ID# [id number], Process claim through [employer], for questions: . THIS IS NOT INSURANCE.] Levaquin 500 mg tablet RxNorm: 065422 1 Tablet(s) PO QD 03/09/2014 Inactive [SAVINGS FOR UNINSURED PATIENTS -- BIN:0 04153, PCN: ASPROD1, Group: AME08, ID# [id number], Process claim through [employer], for questions: . THIS IS NOT INSURANCE.] Carafate 1 gram tablet RxNorm: 719051 1 Tablet(s) PO AC & HS ma ke into slurry 02/09/2014 09/01/2014 Inactive [SAVINGS FOR UNINSUR ED PATIENTS -- BIN:680947, PCN: ASPROD1, Group: AME08, ID# [id number], Process claim through [employer], for questions: . THIS IS NOT INSURANCE.] Fioricet 50 mg-300 mg-40 mg capsule RxNorm: 0266998 1-2 Capsule(s) PO Q4H as needed for headache --max of 6 a day 02/09/2014 09/01/2014 Inactive [SAVINGS FOR UNINSURED PATIENTS -- BIN:439830, PCN: ASPROD1, Group: AME08, ID# [id number], Process claim through [employer], for questions: . THIS IS NOT INSURANCE.] propranolol 40 mg tablet RxNorm: 914797 1 Tablet(s) PO BID 12/08/19 14 06/04/2014 Inactive [SAVINGS FOR UNINSURED PATIE NTS -- BIN:452083, PCN: ASPROD1, Group: AME08, ID# [id number], Process claim through [employer], for questions: . THIS IS NOT INSURANCE.] buspirone 5 mg tablet RxNorm: 889618 1 Tablet(s) PO TID 12/02/2013 Inactive omeprazole 40 mg capsule,delayed release RxNorm: 501818 1 Capsu le(s) PO BID 11/25/2013 11/19/2014 Inactive [SAVINGS FOR UNINSUR ED PATIENTS -- BIN:329967, PCN: ASPROD1, Group: AME08, ID# [id number], Process claim through [employer], for questions: . THIS IS NOT INSURANCE.] ropinirole 2 mg tablet RxNorm: 204095 1 Tablet(s) PO QHS 11/10/2013 0 05/08/2014 Inactive [SAVINGS FOR UNINSURED PATIENTS -- BIN:0 21495, PCN: ASPROD1, Group: AME08, ID# [id number], Process claim through [employer], for questions: . THIS IS NOT INSURANCE.] Cipro 500 mg tablet RxNorm: 049108 1 Tablet(s) PO BID 10/21/201312/03 Inactive [SAVINGS FOR UNINSURED PATIENTS -- BIN:0 00658, PCN: ASPROD1, Group: AME08, ID# [id number], Process claim through [employer], for questions: . THIS IS NOT INSURANCE.] hydroxyzine HCl 25 mg tablet RxNorm: 588784 1 Tablet(s) PO Q4-6 H as needed 10/05/2013 01/04/2016 Inactive [SAVINGS FOR UNINSUR ED PATIENTS -- BIN:400344, PCN: ASPROD1, Group: AME08, ID# [id number], Process claim through [employer], for questions: . THIS IS NOT INSURANCE.] triamcinolone acetonide 0.1 % topical cream RxNorm: 0344651 Appl ication TOP BID 10/05/2013 09/01/2014 Inactive [SAVINGS FOR UNINSUR ED PATIENTS -- BIN:971293, PCN: ASPROD1, Group: AME08, ID# [id number], Process claim through [employer], for questions: . THIS IS NOT INSURANCE.] albuterol sulfate HFA 90 mcg/actuation aerosol inhaler RxNor m: 4357160 2 Puff(s) INH Q4H as needed for cough 10/01/2013 12/22/2013 Inactive [MAKSIM INGS FOR UNINSURED PATIENTS -- BIN:330399, PCN: ASPROD1, Group: AME08, ID# [id number], Process claim through [employer], for questions: . THIS IS NOT INSURANCE.] propranolol 40 mg tablet RxNorm: 873800 1 Tablet(s) PO BID 09/02/19 14 11/29/2013 Inactive [SAVINGS FOR UNINSURED PATIE NTS -- BIN:347715, PCN: ASPROD1, Group: AME08, ID# [id number], Process claim through [employer], for questions: . THIS IS NOT INSURANCE.] propranolol 40 mg tablet RxNorm: 716829 1 Tablet(s) PO BID 08/05/19 14 08/31/2013 Inactive [SAVINGS FOR UNINSURED PATIE NTS -- BIN:365453, PCN: ASPROD1, Group: AME08, ID# [id number], Process claim through [employer], for questions: . THIS IS NOT INSURANCE.] Toprol XL 50 mg tablet,extended release RxNorm: 687833 1 Tablet (s) PO QHS 07/23/2013 08/03/2013 Inactive Macrobid 100 mg capsule RxNorm: 918767 1 Capsule(s) PO BID 07/04/19 14 07/09/2013 Inactive Toprol XL 50 mg tablet,extended release RxNorm: 316896 1 Tablet (s) PO QHS 05/28/2013 06/26/2013 Inactive ciprofloxacin 500 mg tablet RxNorm: 945210 1 Tablet(s) PO BID 05/2706/02/2013 Inactive Bystolic 5 mg tablet RxNorm: 058776 1 Tablet(s) PO QD 05/27/201305/03 Inactive ropinirole 2 mg tablet RxNorm: 719113 1 Tablet(s) PO QHS 04/22/2013 0 11/09/2013 Inactive Cipro 250 mg tablet RxNorm: 198632 1 Tablet(s) PO BID 04/06/201311/2013 Inactive ropinirole 2 mg tablet RxNorm: 771192 1 Tablet(s) PO QHS 02/17/2013 0 04/21/2013 Inactive Amaryl 2 mg tablet RxNorm: 732306 1 Tablet(s) PO QAM 11/11/201211/10 Inactive Amaryl 2 mg tablet RxNorm: 350882 1 Tablet(s) PO QAM 11/11/201204/05 Inactive omeprazole 40 mg capsule,delayed release RxNorm: 986208 1 Capsu le(s) PO BID 08/14/2012 08/08/2013 Inactive Bystolic 5 mg tablet RxNorm: 936665 1 Tablet(s) PO QD 08/14/201205/03 Inactive propranolol 60 mg tablet RxNorm: 782448 Tablet(s) PO TAKE 1 TAB LET TWICE DAILY 08/01/2012 09/01/2012 Inactive Bystolic 5 mg tablet RxNorm: 336490 1 Tablet(s) PO QD 07/21/201207/02 Inactive Bystolic 5 mg tablet RxNorm: 671546 1 Tablet(s) PO QD 07/21/201207/03 Inactive Prilosec 40 mg capsule,delayed release RxNorm: 158594 1 Capsule (s) PO BID 06/24/2012 07/21/2012 Inactive buspirone 10 mg tablet RxNorm: 865462 1 Tablet(s) PO TID 05/08/2012 0 05/23/2016 Inactive Valium 10 mg tablet RxNorm: 411947 1 Tablet(s) PO BID 04/02/201207/03 Inactive Endocet 10 mg-325 mg tablet RxNorm: 2240370 1 Tablet(s) PO QID 03/0607/21/2012 Inactive as needed for severe pain Valium 10 mg tablet RxNorm: 650364 1 Tablet(s) PO BID 02/27/2012 No S top Date Active Endocet 10 mg-325 mg tablet RxNorm: 0935738 1 Tablet(s) PO QID 02/0203/27/2012 Inactive as needed for severe pain Endocet 10 mg-325 mg tablet RxNorm: 2571053 1 Tablet(s) PO QID 01/0302/26/2012 Inactive as needed for severe pain Valium 10 mg tablet RxNorm: 708375 1 Tablet(s) PO BID 01/29/2012 No S top Date Active Protonix 40 mg tablet,delayed release RxNorm: 412227 1 Tablet(s ) PO QD 01/28/2012 07/21/2012 Inactive metformin ER 500 mg tablet,extended release 24 hr RxNorm: 86 0977 1 Tablet(s) PO QD 12/26/2011 07/20/2012 Inactive Trazadone 150 mg Tablet RxNorm: 1 Tablet(s) PO QHS prn sleep 1 04/23/2012 Inactive Endocet 10 mg-325 mg tablet RxNorm: 1547162 1 Tablet(s) PO QID 12/0301/24/2012 Inactive as needed for severe pain Nexium 40 mg capsule,delayed release RxNorm: 426423 1 Capsule(s ) PO QD 12/26/2011 01/27/2012 Inactive Symbicort 160 mcg-4.5 mcg/actuation HFA Aerosol Inhaler RxNo rm: 0648097 2 Puff(s) INH BID 12/04/2011 07/21/2012 Inactive Endocet 10 mg-325 mg tablet RxNorm: 0438398 1 Tablet(s) PO QID 11/0312/25/2011 Inactive as needed for severe pain metformin ER 500 mg tablet,extended release 24 hr RxNorm: 86 0977 1 Tablet(s) PO QD 11/20/2011 12/19/2011 Inactive metformin ER 500 mg tablet,extended release 24 hr RxNorm: 86 0977 1 Tablet(s) PO QD 11/20/2011 11/19/2011 Inactive amitriptyline 100 mg tablet RxNorm: 817119 Tablet(s) PO QHS 1 a nd 1/2 tabs QHS 11/12/2011 11/13/2011 Inactive Valium 10 mg tablet RxNorm: 874870 1 Tablet(s) PO BID 11/09/2011 No S top Date Active Endocet 10 mg-325 mg tablet RxNorm: 6418162 1 Tablet(s) PO QID 10/0211/14/2011 Inactive as needed for severe pain Aricept 10 mg Tab RxNorm: 938370 1 Tablet(s) PO QD 10/05/2011 013 Inactive Valium 10 mg tablet RxNorm: 442962 1 Tablet(s) PO BID 10/05/2011 No S top Date Active Endocet 10 mg-325 mg Tab RxNorm: 6665386 1 Tablet(s) PO QID 012 10/09/2011 Inactive as needed for severe pain Aricept 10 mg Tab RxNorm: 194570 1 Tablet(s) PO QD 08/14/2011 012 Inactive Endocet 10 mg-325 mg Tab RxNorm: 9575581 1 Tablet(s) PO QID 012 08/31/2011 Inactive as needed for severe pain Valium 10 mg Tab RxNorm: 308925 1 Tablet(s) PO BID 08/02/2011 No Stop Date Active propranolol 60 mg tablet RxNorm: 790387 1 Tablet(s) PO BID 07/26/19 12 09/11/2011 Inactive amitriptyline 100 mg tablet RxNorm: 297918 Tablet(s) PO QHS 1 a nd /2 tabs QHS 06/20/2011 09/11/2011 Inactive buspirone 10 mg tablet RxNorm: 660011 1 Tablet(s) PO BID 06/18/2011 0 09/15/2011 Inactive propranolol 60 mg Tab RxNorm: 171029 1 Tablet(s) PO BID 06/18/2011 Inactive gabapentin 800 mg Tab RxNorm: 793944 1 Tablet(s) PO BID 06/18/2011 Inactive ropinirole 2 mg tablet RxNorm: 178615 1 Tablet(s) PO QHS 05/29/2011 0 08/26/2011 Inactive trimethoprim 100 mg Tab RxNorm: 401602 1 Tablet(s) PO QHS 05/29/2011 07/21/2012 Inactive Endocet 10 mg-325 mg Tab RxNorm: 3276851 1 Tablet(s) PO QID 012 2011 Inactive as needed for severe pain Valium 10 mg Tab RxNorm: 683265 1 Tablet(s) PO QHS N eed to take med as prescribed. this is a 40 day RX. No early fills. 05/17/2011 05/20/2018 Inactive propranolol 60 mg Tab RxNorm: 311895 1 Tablet(s) PO BID 04/16/2011 Inactive Neurontin 800 mg Tab RxNorm: 530148 1 Tablet(s) PO QHS 04/05/201103/2011 Inactive Endocet 10 mg-325 mg Tab RxNorm: 1136596 1 Tablet(s) PO QID 012 05/02/2011 Inactive as needed for severe pain oxycodone-acetaminophen 10 mg-325 mg tablet RxNorm: 3193672 1 Ta blet(s) PO Q4H 03/28/2011 05/19/2012 Inactive Valium 10 mg Tab RxNorm: 536220 1 Tablet(s) PO QHS 03/28/2011 012 Inactive buspirone 10 mg Tab RxNorm: 597768 1 Tablet(s) PO BID 03/27/201106/02 Inactive propranolol 60 mg Tab RxNorm: 266278 1 Tablet(s) PO BID 03/19/2011 Inactive Klor-Con M20 20 mEq Tab RxNorm: 5195330 1 Tablet(s) PO QD 03/19/2011 07/21/2012 Inactive Aricept 10 mg Tab RxNorm: 426401 1 Tablet(s) PO QD 02/27/2011 012 Inactive propranolol 60 mg Tab RxNorm: 473220 1 Tablet(s) PO BID 02/19/2011 Inactive omeprazole 40 mg capsule,delayed release RxNorm: 112176 1 Capsu le(s) PO BID 01/24/2011 05/23/2011 Inactive clindamycin 300 mg capsule RxNorm: 545400 1 Capsule(s) PO TID 01/2402/02/2011 Inactive propranolol 60 mg Tab RxNorm: 442438 1 Tablet(s) PO BID 01/22/2011 No Stop Date Active nystatin 100,000 unit/g Topical Cream RxNorm: 463921 Applicatio n TOP BID 01/15/2011 01/14/2011 Inactive to rash for 2-4 week s Diflucan 200 mg Tab RxNorm: 758992 1 Tablet(s) PO QD 01/15/201101/28 Inactive buspirone 10 mg Tab RxNorm: 387430 1 Tablet(s) PO BID 01/08/201103/05 Inactive Valium 10 mg Tab RxNorm: 122626 1 Tablet(s) PO QHS 01/05/2011 012 Inactive Diflucan 200 mg Tab RxNorm: 472149 1 Tablet(s) PO QD 01/01/201101/14 Inactive Diflucan 200 mg Tab RxNorm: 270113 1 Tablet(s) PO QD 12/18/201012/31 Inactive Valium 10 mg Tab RxNorm: 275459 1 Tablet(s) PO QHS 12/12/2010 011 Inactive Diflucan 200 mg Tab RxNorm: 205225 1 Tablet(s) PO QD 12/07/201012/18 Inactive Aricept 10 mg Tab RxNorm: 752041 1 Tablet(s) PO QD 11/20/2010 011 Inactive ropinirole 1 mg Tab RxNorm: 581334 1 Tablet(s) PO QHS 11/16/201005/03 Inactive enalapril maleate 5 mg Tab RxNorm: 160069 1 Tablet(s) PO QD 011 05/20/2018 Inactive buspirone 10 mg Tab RxNorm: 303365 1 Tablet(s) PO BID 11/16/201012/02 Inactive Valium 10 mg Tab RxNorm: 714542 1 Tablet(s) PO QHS 11/07/2010 011 Inactive Pyridium 100 mg Tab RxNorm: 1668125 1 Tablet(s) PO TID 11/02/201004/2010 Inactive Macrobid 100 mg Cap RxNorm: 3002199 1 Capsule(s) PO BID 11/02/2010 Inactive buspirone 10 mg Tab RxNorm: 537030 1 Tablet(s) PO QHS 10/18/201005/02 Inactive propranolol 60 mg Tab RxNorm: 030836 1 Tablet(s) PO BID 09/18/2010 Inactive Valium 10 mg Tab RxNorm: 443145 1 Tablet(s) PO QHS 09/05/2010 011 Inactive Aricept 10 mg Tab RxNorm: 710071 1 Tablet(s) PO QD 08/14/2010 011 Inactive Valium 10 mg Tab RxNorm: 402219 1 Tablet(s) PO QHS 06/26/2010 011 Inactive ropinirole 1 mg Tab RxNorm: 156582 1 Tablet(s) PO QHS 06/19/201010/02 Inactive omeprazole 40 mg Cap, delayed release RxNorm: 058023 1 Capsule( s) PO QD 06/07/2010 10/04/2010 Inactive Endocet 10 mg-325 mg Tab RxNorm: 5246059 1 Tablet(s) PO QID as needed for severe pain 06/07/2010 03/07/2011 Inactive Endocet 10 mg-325 mg Tab RxNorm: 2113356 1 Tablet(s) PO QID as needed for severe pain 05/04/2010 06/02/2010 Inactive Valium 10 mg Tab RxNorm: 053040 1 Tablet(s) PO QHS 05/01/2010 011 Inactive propranolol 60 mg Tab RxNorm: 985786 1 Tablet(s) PO BID 04/03/2010 Inactive Valium 10 mg Tab RxNorm: 230880 1 Tablet(s) PO QHS 03/28/2010 011 Inactive omeprazole 40 mg Cap, Delayed Release RxNorm: 285869 1 Capsule( s) PO QD 03/28/2010 06/06/2010 Inactive Endocet 10 mg-325 mg Tab RxNorm: 5456754 1 Tablet(s) PO QID prn ari n 03/27/2010 05/20/2018 Inactive Valium 10 mg Tab RxNorm: 122175 1 Tablet(s) PO QHS 02/20/2010 011 Inactive Diflucan 100 mg Tab RxNorm: 940766 1 Tablet(s) PO BID 01/23/201003/2009 Inactive Diflucan 100 mg Tab RxNorm: 232157 1 Tablet(s) PO BID 01/05/201001/02 Inactive Aricept 10 mg Tab RxNorm: 003234 1 Tablet(s) PO QD 12/01/2009 011 Inactive OxyContin 20 mg 12 hr Tab RxNorm: 4700171 1 Tablet(s) PO BID 200904/05/2010 Inactive oxycodone-acetaminophen 10 mg-325 mg Tab RxNorm: 8630018 1 Table t(s) PO Q4H 11/22/2009 11/26/2009 Inactive Phenergan 25 mg Tab RxNorm: 184136 1 Tablet(s) PO PRN MIGRAINE 11/0303/07/2011 Inactive Demerol 100 mg Tab RxNorm: 635072 1 Tablet(s) PO PRN MIGRAINE 11/2203/07/2011 Inactive Oxycodone-Acetaminophen 10 mg-325 mg Tab RxNorm: 4554689 1 Table t(s) PO Q4H 10/11/2009 10/15/2009 Inactive Percocet 10 mg-325 mg Tab RxNorm: 1548254 1 Tablet(s) PO Q4H 200910/24/2009 Inactive propranolol 60 mg Tab RxNorm: 867794 1 Tablet(s) PO BID 08/29/2009 Inactive Valium 10 mg Tab RxNorm: 281055 1 Tablet(s) PO QHS 08/16/2009 010 Inactive Keflex 500 mg Cap RxNorm: 175457 1 Capsule(s) PO BID 07/25/200907/31 Inactive Hydroxyzine 25 mg Tab RxNorm: 273890 1 Tablet(s) PO TID 07/25/2009 Inactive Prednisone 20 mg Tab RxNorm: 041176 1 Tablet(s) PO BID 07/25/2009 Inactive Demerol 100 mg Tab RxNorm: 027230 1 Tablet(s) PO PRN MIGRAINE 07/25 No Stop Date Active Ropinirole 1 mg Tab RxNorm: 625510 1 Tablet(s) PO HS 07/20/200902/14 Inactive Valium 10 mg Tab RxNorm: 183685 1 Tablet(s) PO QHS 07/18/2009 010 Inactive Endocet 10 mg-325 mg Tab RxNorm: 4507970 1 Tablet(s) PO TID 010 07/07/2009 Inactive Demerol 100 mg Tab RxNorm: 068343 1 Tablet(s) PO PRN MIGRAINE 06/08 No Stop Date Active Ropinirole 1 mg Tab RxNorm: 064562 1 Tablet(s) PO HS 05/16/200907/14 Inactive ipratropium-albuterol 0.5 mg-3 mg(2.5 mg base)/3 mL ne bulization soln RxNorm: 1213663 1 Unit Dose INH Q4H as needed No Start Date Active MagOx 400 mg (241.3 mg magnesium) tablet RxNorm: 453871 1 Table t(s) PO BID No Start Date Active Vitamin B12 1000mcg Tablet RxNorm: 1 Tablet(s) PO QD No Start Date Active Vitamin D3 5,000 unit tablet RxNorm: 154921 1 Tablet(s) PO QD No Star t Date Active Tylenol Arthritis Pain 650 mg tablet,extended release RxNorm : 6410749 1 Tablet(s) PO Q4H No Start Date Active Lotrimin AF 2 % topical powder RxNorm: 848796 1 Application TOP BID No Start Date Active enalapril maleate 5 mg Tab RxNorm: 867055 1 Tablet(s) PO QD No Star t Date 07/20/2012 Inactive Demerol 100 mg Tab RxNorm: 467365 Tablet(s) PO PRN MIGRAINE No Star t Date 06/02/2009 Inactive metformin 500 mg tablet RxNorm: 533494 1 Tablet(s) PO QD No Start D ate 04/05/2013 Inactive Breo Ellipta 100 mcg-25 mcg/dose powder for inhalation RxNor m: 5062614 1 Puff(s) INH BID No Start Date 01/04/2016 Inactive Mag-Oxide 400 mg Tab RxNorm: 510257 1 Tablet(s) PO QD No Start Date 0 07/21/2012 Inactive Cipro 500 mg Tab RxNorm: 115920 1 Tablet(s) PO QD No Start Date 04/05 Inactive Ativan 0.5 mg tablet RxNorm: 461709 1 Tablet(s) PO TID as needed No Start Date 05/06/2019 Inactive melatonin 3 mg tablet RxNorm: 946250 2 Tablet(s) PO QHS No Start Da te 08/19/2018 Inactive buspirone 10 mg Tab RxNorm: 513918 1 Tablet(s) PO QD No Start Date Inactive sucralfate 100 mg/mL Oral Susp RxNorm: 002075 2 Teaspoon(s) PO QID No Start Date 07/21/2012 Inactive hydrocodone 5 mg-acetaminophen 325 mg tablet RxNorm: 662172 1 Tablet(s) PO Q4H as needed No Start Date 08/19/2018 Inactive Amaryl 2 mg tablet RxNorm: 433268 1 Tablet(s) PO BID No Start Date Inactive OxyContin 20 mg 12 hr Tab RxNorm: 6614128 1 Tablet(s) PO BID No Sta rt Date 11/27/2009 Inactive propranolol 40 mg tablet RxNorm: 623441 1 Tablet(s) PO QID No Start Date 01/19/2018 Inactive Trazadone 150 mg Tablet RxNorm: 1-2 Tablet(s) PO QHS prn sleep No Start Date 08/09/2010 Inactive propranolol 60 mg Tab RxNorm: 895831 1/2 Tablet(s) PO BID No Start Date 01/21/2011 Inactive insulin NPH and regular human subcutaneous RxNorm: 2460680 subcu taneous No Start Date 11/20/2018 Inactive Ativan 0.5 mg tablet RxNorm: 281289 1 Tablet(s) PO QID No Start Date 06/18/2016 Inactive Vasotec 5 mg Tab RxNorm: 548998 1 Tablet(s) PO BID No Start Date 06/2011 Inactive Toprol XL 50 mg tablet,extended release RxNorm: 269390 1 Tablet (s) PO BID No Start Date 04/05/2013 Inactive Ativan 0.5 mg tablet RxNorm: 274775 1 Tablet(s) PO TID No Start Date 05/25/2016 Inactive Klor-Con M20 20 mEq Tab RxNorm: 1458201 1 Tablet(s) PO QD No Start Date 03/19/2011 Inactive sumatriptan 100 mg tablet RxNorm: 320571 1 Tablet(s) PO at headache onset--repeat in 2hrs if remains No Start Date 07/21/2012 Inactive propranolol 60 mg Tab RxNorm: 108644 1 Tablet(s) PO BID No Start Da te 08/28/2009 Inactive Cholestyramine Light 4 gram Oral Powder RxNorm: 3428390 1 Unit Dose PO QD in water No Start Date 07/21/2012 Inactive nystatin 100,000 unit/g Topical Powder RxNorm: 591038 Applicati on TOP BID No Start Date 07/21/2012 Inactive vitamin Z49-mgnxy acid sublingual RxNorm: sublingual No Start Date 07/05/2013 Inactive cyclobenzaprine 5 mg tablet RxNorm: 562699 1/2-1 Tablet (s) PO TID as needed for muscle spasm No Start Date 07/18/2017 Inactive tramadol 50 mg tablet RxNorm: 731018 2 Tablet(s) PO TID as need ed for pain No Start Date 09/01/2014 Inactive aspirin 81 mg Tab RxNorm: 302597 1 Tablet(s) PO QOD No Start Date 04/2013 Inactive Vitamin B12 1000mcg Tablet RxNorm: 1 Tablet(s) PO QD No Start Date 07/18/2017 Inactive cholestyramine (with sugar) 4 gram oral powder RxNorm: 65326 3 1 Unit(s) PO QD as needed No Start Date 05/20/2018 Inactive ProAir HFA 90 mcg/Actuation Aerosol Inhaler RxNorm: 655915 2 Puff(s) INH Q4H prn shortness of breath No Start Date 07/21/2012 Inactive pravastatin 10 mg Tab RxNorm: 028869 1 Tablet(s) PO QD No Start Date 07/21/2012 Inactive gabapentin 800 mg Tab RxNorm: 949981 1 Tablet(s) PO BID No Start Da te 06/03/2011 Inactive Endocet 10 mg-325 mg Tab RxNorm: 5006022 1 Tablet(s) PO TID No Star t Date 06/02/2009 Inactive Naproxen 500 mg Tab RxNorm: 157615 1 Tablet(s) PO BID No Start Date 0 04/05/2010 Inactive Valium 10 mg Tab RxNorm: 066629 1 Tablet(s) PO BID No Start Date 07/04 Inactive enalapril maleate 5 mg Tab RxNorm: 077564 1 Tablet(s) PO QD No Star t Date 11/15/2010 Inactive doxepin 10 mg capsule RxNorm: 8940413 2 Capsule(s) PO QHS No Start Date 09/17/2018 Inactive MS Contin 15 mg Tab RxNorm: 095449 1 Tablet(s) PO BID No Start Date 0 09/18/2010 Inactive buspirone 5 mg tablet RxNorm: 230945 1 Tablet(s) PO TID No Start Da te 12/01/2013 Inactive [place] 3 Fish Oil Cap RxNorm: 1 Capsule(s) PO QD No Start Date 07/03 Inactive enalapril maleate 5 mg Tab RxNorm: 675577 1/2 Tablet(s) PO QD No St art Date 03/07/2011 Inactive Lyrica 75 mg capsule RxNorm: 186112 1 Capsule(s) PO QHS No Start Da te 02/08/2014 Inactive Lopressor 100 mg tablet RxNorm: 706153 1 Tablet(s) PO BID No Start Date 06/08/2018 Inactive Lantus Solostar U-100 Insulin 100 unit/mL (3 mL) subcu taneous pen RxNorm: 322418 45 Unit(s) SQ QAM No Start Date 05/20/2018 Inactive aspirin 81 mg tablet RxNorm: 103439 1 Tablet(s) PO QD No Start Date 0 09/14/2015 Inactive diltiazem CD 240 mg capsule,extended release 24 hr RxNorm: 8 88347 1 Capsule(s) PO QD No Start Date 05/25/2019 Inactive insulin NPH isophane U-100 human subcutaneous RxNorm: 465457 beckwith bcutaneous No Start Date 04/20/2019 Inactive sumatriptan 100 mg tablet RxNorm: 189632 1 Tablet(s) PO at headache onset. May repeat 1 in two hours if headache remains. Max of 2 per 24 hours No Start Date 04/01/2018 Inactive gabapentin 300 mg capsule RxNorm: 207015 1 Capsule(s) PO QHS No Sta rt Date 02/04/2018 Inactive Topamax 25 mg Tab RxNorm: 049883 Oral No Start Date 03/07/2011 In active Senokot-S 8.6 mg-50 mg Tab RxNorm: 9253440 1 Tablet(s) PO QD No Sta rt Date 03/07/2011 Inactive metformin ER 500 mg 24 hr tablet,extended release RxNorm: 18 91276 1 Tablet(s) PO QD No Start Date 05/20/2018 Inactive Symbicort 80 mcg-4.5 mcg/actuation HFA Aerosol Inhaler RxNor m: 8381289 2 Puff(s) INH BID No Start Date 04/05/2013 Inactive metoprolol tartrate 25 mg tablet RxNorm: 043280 1 Tablet(s) PO BID No Start Date 05/20/2019 Inactive propranolol 60 mg Tab RxNorm: 104807 1/2 Tablet(s) PO BID No Start Date 07/21/2012 Inactive metformin ER 500 mg 24 hr tablet,extended release RxNorm: 18 90074 2 Tablet(s) PO QD No Start Date 12/16/2017 Inactive Insulin Syringe 1 mL 29 gauge x 1/2" RxNorm: 2 s yringes daily with insulin Dx: E11.65 No Start Date 10/07/2018 Inactive Amitriptyline 75 mg Tab RxNorm: 131504 1 Tablet(s) PO QHS No Start Date 10/23/2009 Inactive donepezil 10 mg Tab RxNorm: 695288 1 Tablet(s) PO QD No Start Date Inactive Lantus Solostar U-100 Insulin 100 unit/mL (3 mL) subcu taneous pen RxNorm: 397090 36 Unit(s) SQ QAM No Start Date 12/24/2017 Inactive Miacalcin 200 unit/Actuation Nasal [place] Aerosol RxNorm: 261 204 1 [place] NASAL QD Alternate nostrils each day No Start Date 04/05/2010 Inactive Amitriptyline 150 mg Tab RxNorm: 438545 1 Tablet(s) PO QHS No Start Date 01/04/2010 Inactive Bystolic 5 mg tablet RxNorm: 028744 1 Tablet(s) PO QD No Start Date 0 08/13/2012 Inactive Aricept 10 mg Tab RxNorm: 132045 1 Tablet(s) PO QD No Start Date 11/03 Inactive Lantus Solostar U-100 Insulin 100 unit/mL (3 mL) subcu taneous pen RxNorm: 826353 50 Unit(s) SQ QAM No Start Date 08/27/2018 Inactive albuterol sulfate 2.5 mg/3 mL (0.083 %) Neb Solution RxNorm: 690228 1 Unit Dose INH QID as needed No Start Date 08/23/2015 Inactive Symbicort 160 mcg-4.5 mcg/actuation HFA Aerosol Inhaler RxNo rm: 6246135 2 Puff(s) INH BID No Start Date 12/03/2011 Inactive Savella 50 mg Tab RxNorm: 434920 1 Tablet(s) PO BID No Start Date 04/2010 Inactive amitriptyline 100 mg Tab RxNorm: 251495 1 1/2 Tablet(s) PO QHS No S tart Date 06/19/2011 Inactive nystatin 100,000 unit/g Topical Cream RxNorm: 427808 Ap plication TOP BID to rash for 2-4 weeks No Start Date 01/14/2011 Inactive Trelegy Ellipta 100 mcg-62.5 mcg-25 mcg powder for inhalatio n RxNorm: 4034999 1 Puff(s) INH QD No Start Date 12/16/2017 Inactive Lyrica 150 mg capsule RxNorm: 262161 1 Capsule(s) PO QHS No Start D ate 12/04/2015 Inactive sennosides 8.6 mg tablet RxNorm: 400203 1 Tablet(s) PO BID No Start Date 09/07/2018 Inactive metformin ER 500 mg tablet,extended release 24 hr RxNorm: 86 0975 1 Tablet(s) PO QD No Start Date 10/22/2017 Inactive Fish Oil 1,000 mg Cap RxNorm: 1 Capsule(s) PO QD No Start Date 06/2011 Inactive Zyrtec 10 mg Tab RxNorm: 2061672 1 Tablet(s) PO QD No Start Date 07/03 Inactive albuterol sulfate HFA 90 mcg/actuation aerosol inhaler RxNor m: 1076393 2 Puff(s) INH Q4H as needed for cough No Start Date 09/30/2013 Inactive trazodone 150 mg tablet RxNorm: 782956 1 Tablet(s) PO QHS No Start Date 07/21/2012 Inactive Spiriva with HandiHaler 18 mcg & inhalation capsules RxNorm: 430987 1 Capsule(s) INH QD No Start Date 04/05/2013 Inactive Coreg 3.125 mg Tab RxNorm: 092821 1 Tablet(s) PO BID No Start Date Inactive Phenergan 25 mg Tab RxNorm: 799951 Tablet(s) PO PRN MIGRAINE No Sta rt Date 11/21/2009 Inactive Vitamin D 50,000 unit Cap RxNorm: 8749719 1 Capsule(s) PO QW No Sta rt Date 03/07/2011 Inactive Januvia 100 mg tablet RxNorm: 149547 1 Tablet(s) PO QD No Start Date 10/25/2015 Inactive Eliquis 5 mg tablet RxNorm: 2721586 1 Tablet(s) PO BID No Start Date 08/19/2018 Inactive Advair Diskus 500 mcg-50 mcg/Dose for Inhalation RxNorm: 918339 1 INH BID No Start Date 07/21/2012 Inactive Vitamin D3 5,000 unit tablet RxNorm: 001743 1 Tablet(s) PO QD No St art Date 07/18/2017 Inactive Amaryl 2 mg tablet RxNorm: 358474 1 Tablet(s) PO QD No Start Date 06/2015 Inactive Actos 30 mg tablet RxNorm: 350628 1 Tablet(s) PO QD No Start Date Inactive promethazine 25 mg tablet RxNorm: 779330 1 Tablet(s) PO Q4H prn N/V No Start Date 07/21/2012 Inactive ProAir HFA 90 mcg/actuation Aerosol Inhaler RxNorm: 590544 2 Puff(s) INH Q4H prn dyspnea No Start Date 07/21/2012 Inactive Dexilant 60 mg Capsule RxNorm: 132163 1 Capsule(s) PO QD No Start D ate 01/27/2012 Inactive Lantus Solostar U-100 Insulin 100 unit/mL (3 mL) subcu taneous pen RxNorm: 857941 38 Unit(s) SQ QAM No Start Date 05/20/2018 Inactive Valium 10 mg Tab RxNorm: 839939 1 Tablet(s) PO QHS AND PRN No Start Date 10/24/2009 Inactive ZOFRAN ODT 8 mg disintegrating tablet RxNorm: 429033 1 Tablet(s ) PO Q6H No Start [...] Date S ervice Location MICROALBUMIN URINE RANDOM 73180 MICRL MG/L 14.9 MG/L Unknown MICROALBUMIN URINE RANDOM 44758 XM.ALB/CRE 6.1 MG/GCR Unknown MICROALBUMIN URINE RANDOM 86807 CREAT MG/D 243 MG/DL Unknown MICROALBUMIN URINE RANDOM 55692 CRE/100 2.43 G/L 03/05 Unknown PROTEIN/CREAT URINE WITH RATIO 40322|24795 PROT R U 14 MG/D L 04/01/2014 Unknown PROTEIN/CREAT URINE WITH RATIO 87648|12303 CREAT R U 254 MG/ DL 04/01/2014 Unknown PROTEIN/CREAT URINE WITH RATIO 33609|55487 XRATIO P/C 55 MG/ G 04/01/2014 Unknown URINALYSIS 65719 PROTEIN UR NEG 04/28/2010 Unknown URINALYSIS 99332 HEMGLBN UR NEG 04/28/2010 Unknown URINALYSIS 95958 GLUCOSE UR NEG 04/28/2010 Unknown URINALYSIS 06002 KETONES UR NEG 04/28/2010 Unknown URINALYSIS 15302 PH U 5.5 04/28/2010 Unknown URINALYSIS 53757 SP GR U 1.025 04/28/2010 Unknown URINALYSIS 19294 BILRUBN UR NEG 04/28/2010 Unknown URINALYSIS 00027 LEUKO UR 2+ 04/28/2010 Unknown URINALYSIS 78102 NITRITE UR NEG 04/28/2010 Unknown MICR CUL? [id number] WBC/HPF 6-10 04/28/2010 Unknown MICR CUL? [id number] RBC/HPF 0-5 04/28/2010 Unknown MICR CUL? [id number] HYAL CAST 16-25 04/28/2010 Unknown MICR CUL? [id number] SP TO YOLIE? NO 04/28/2010 Unknown MICR CUL? [id number] APPEAR UR NORMAL 04/28/2010 Unknown MICR CUL? [id number] SQ EPI/LPF FEW 04/28/2010 Unknown Procedures Procedure Codes Date URINALYSIS NONAUTO W/O SCOPE CPT-4: 44482 04/16/2019 URINE CULTURE/ COLONY COUNT CPT-4: 80361 04/16/2019 CEFTRIAXONE SODIUM INJECTION CPT-4: J0696 04/16/2019 THER/PROPH/DIAG INJ SC/IM CPT-4: 45618 04/16/2019 DRAIN/INJECT JOINT/BURSA CPT-4: 65578 01/22/2019 TRIAMCINOLONE ACET INJ NOS CPT-4: J3301 01/22/2019 DEXAMETHASONE SODIUM PHOS CPT-4: J1100 01/22/2019 URINE CULTURE/ COLONY COUNT CPT-4: 22862 01/07/2019 URINALYSIS NONAUTO W/O SCOPE CPT-4: 32233 01/07/2019 CEFTRIAXONE SODIUM INJECTION CPT-4: J0696 01/07/2019 THER/PROPH/DIAG INJ SC/IM CPT-4: 38185 01/07/2019 FLU VACC PRSV FREE INC ANTIG 65 AND OLDER CPT-4: 21778 12/24/2018 FLU VACC PRSV FREE INC ANTIG 65 AND OLDER CPT-4: 95556 12/24/2018 ADMIN INFLUENZA VIRUS VAC CPT-4: G0008 12/24/2018 THER/PROPH/DIAG INJ SC/IM CPT-4: 77580 11/04/2018 KETOROLAC TROMETHAMINE INJ CPT-4: J1885 11/04/2018 PROMETHAZINE HCL INJECTION CPT-4: J2550 11/04/2018 PPPS, subseq visit CPT-4: G0439 09/18/2018 THER/PROPH/DIAG INJ SC/IM CPT-4: 30024 04/01/2018 KETOROLAC TROMETHAMINE INJ CPT-4: J1885 04/01/2018 PROMETHAZINE HCL INJECTION CPT-4: J2550 04/01/2018 URINE CULTURE/ COLONY COUNT CPT-4: 48672 03/17/2018 URINALYSIS NONAUTO W/O SCOPE CPT-4: 45566 03/17/2018 FLU VACC PRSV FREE INC ANTIG 65 AND OLDER CPT-4: 55755 12/17/2017 PNEUMOCOCCAL VACC 23 RANDALL IM CPT-4: 52160 12/17/2017 ADMIN INFLUENZA VIRUS VAC CPT-4: G0008 12/17/2017 ADMIN PNEUMOCOCCAL VACCINE CPT-4: G0009 12/17/2017 PPPS, subseq visit CPT-4: G0439 09/17/2017 THER/PROPH/DIAG INJ SC/IM CPT-4: 37412 08/26/2017 KETOROLAC TROMETHAMINE INJ CPT-4: J1885 08/26/2017 PROMETHAZINE HCL INJECTION CPT-4: J2550 08/26/2017 URINALYSIS NONAUTO W/O SCOPE CPT-4: 88044 07/19/2017 URINE CULTURE/ COLONY COUNT CPT-4: 12079 07/19/2017 CEFTRIAXONE SODIUM INJECTION CPT-4: J0696 07/19/2017 THER/PROPH/DIAG INJ SC/IM CPT-4: 68791 07/19/2017 THER/PROPH/DIAG INJ SC/IM CPT-4: 70090 07/19/2017 TRIAMCINOLONE ACET INJ NOS CPT-4: J3301 07/19/2017 PRESCRIP TRANSMIT VIA ERX SY CPT-4: G8553 05/07/2017 PRESCRIP TRANSMIT VIA ERX SY CPT-4: G8553 02/22/2017 PRESCRIP TRANSMIT VIA ERX SY CPT-4: G8553 01/23/2017 FLU VACC PRSV FREE INC ANTIG 65 AND OLDER CPT-4: 71815 12/20/2016 PNEUMOCOCCAL VACC 13 RANDALL IM CPT-4: 44777 12/20/2016 ADMIN INFLUENZA VIRUS VAC CPT-4: G0008 12/20/2016 ADMIN PNEUMOCOCCAL VACCINE CPT-4: G0009 12/20/2016 URINALYSIS NONAUTO W/O SCOPE CPT-4: 15710 10/08/2016 URINE CULTURE/ COLONY COUNT CPT-4: 86814 10/08/2016 PRESCRIP TRANSMIT VIA ERX SY CPT-4: G8553 10/08/2016 PRESCRIP TRANSMIT VIA ERX SY CPT-4: G8553 09/19/2016 PRESCRIP TRANSMIT VIA ERX SY CPT-4: G8553 08/20/2016 PRESCRIP TRANSMIT VIA ERX SY CPT-4: G8553 02/29/2016 KETOROLAC TROMETHAMINE INJ CPT-4: J1885 02/02/2016 THER/PROPH/DIAG INJ SC/IM CPT-4: 66910 02/02/2016 PROMETHAZINE HCL INJECTION CPT-4: J2550 02/02/2016 PRESCRIP TRANSMIT VIA ERX SY CPT-4: G8553 02/02/2016 FLU VACC PRSV FREE INC ANTIG 65 AND OLDER CPT-4: 87214 01/05/2016 PPPS, subseq visit CPT-4: G0439 01/05/2016 ADMIN INFLUENZA VIRUS VAC CPT-4: G0008 01/05/2016 URINE CULTURE/ COLONY COUNT CPT-4: 56801 12/05/2015 URINALYSIS NONAUTO W/O SCOPE CPT-4: 81381 12/05/2015 PRESCRIP TRANSMIT VIA ERX SY CPT-4: G8553 12/05/2015 PRESCRIP TRANSMIT VIA ERX SY CPT-4: G8553 10/26/2015 URINALYSIS NONAUTO W/O SCOPE CPT-4: 83092 10/05/2015 URINE CULTURE/ COLONY COUNT CPT-4: 68848 10/05/2015 PRESCRIP TRANSMIT VIA ERX SY CPT-4: G8553 10/05/2015 SERVICE REQUIRED FOR PMD CPT-4: G0372 09/15/2015 PRESCRIP TRANSMIT VIA ERX SY CPT-4: G8553 09/15/2015 SPECIAL REPORTS OR FORMS CPT-4: 15079 08/25/2015 PRESCRIP TRANSMIT VIA ERX SY CPT-4: G8553 07/05/2015 URINALYSIS NONAUTO W/O SCOPE CPT-4: 14859 03/30/2015 ASSAY, GLUCOSE, BLOOD QUANT CPT-4: 77303 03/30/2015 URINE CULTURE/ COLONY COUNT CPT-4: 66412 03/30/2015 PRESCRIP TRANSMIT VIA ERX SY CPT-4: G8553 03/30/2015 PRESCRIP TRANSMIT VIA ERX SY CPT-4: G8553 02/03/2015 FLU VACC PRSV FREE INC ANTIG 65 AND OLDER CPT-4: 33992 12/29/2014 ADMIN INFLUENZA VIRUS VAC CPT-4: G0008 12/29/2014 PRESCRIP TRANSMIT VIA ERX SY CPT-4: G8553 12/29/2014 PRESCRIP TRANSMIT VIA ERX SY CPT-4: G8553 09/02/2014 PROTEIN/CREAT URINE WITH RATIO CPT-4: 47620|61658 5 MICROALBUMIN QUANTITATIVE CPT-4: 83489 04/01/2014 PRESCRIP TRANSMIT VIA ERX SY CPT-4: G8553 03/16/2014 PRESCRIP TRANSMIT VIA ERX SY CPT-4: G8553 03/09/2014 THER/PROPH/DIAG INJ SC/IM CPT-4: 67158 03/01/2014 TRIAMCINOLONE ACET INJ NOS CPT-4: J3301 03/01/2014 PRESCRIP TRANSMIT VIA ERX SY CPT-4: G8553 02/09/2014 URINE CULTURE/ COLONY COUNT CPT-4: 68086 10/30/2013 URINALYSIS NONAUTO W/O SCOPE CPT-4: 93488 10/21/2013 URINE CULTURE/ COLONY COUNT CPT-4: 84395 10/21/2013 DESTRUCT PREMALG LESION (Cryosurgery) CPT-4: 71492 PRESCRIP TRANSMIT VIA ERX SY CPT-4: G8553 10/05/2013 URINALYSIS NONAUTO W/O SCOPE CPT-4: 05885 08/04/2013 URINE CULTURE/ COLONY COUNT CPT-4: 54596 08/04/2013 PRESCRIP TRANSMIT VIA ERX SY CPT-4: G8553 08/04/2013 THER/PROPH/DIAG INJ SC/IM CPT-4: 22520 07/13/2013 TRIAMCINOLONE ACET INJ NOS CPT-4: J3301 07/13/2013 PRESCRIP TRANSMIT VIA ERX SY CPT-4: G8553 05/27/2013 URINALYSIS NONAUTO W/O SCOPE CPT-4: 89281 05/25/2013 URINE CULTURE/ COLONY COUNT CPT-4: 42719 05/25/2013 THER/PROPH/DIAG INJ SC/IM CPT-4: 48274 05/04/2013 VITAMIN B12 INJECTION CPT-4: J3420 05/04/2013 THER/PROPH/DIAG INJ SC/IM CPT-4: 12698 04/17/2013 VITAMIN B12 INJECTION CPT-4: J3420 04/17/2013 THER/PROPH/DIAG INJ SC/IM CPT-4: 96823 04/17/2013 METHYLPREDNISOLONE 40 MG INJ CPT-4: J1030 04/17/2013 TRIAMCINOLONE ACET INJ NOS CPT-4: J3301 04/17/2013 URINALYSIS NONAUTO W/O SCOPE CPT-4: 87198 04/06/2013 URINE CULTURE/ COLONY COUNT CPT-4: 15715 04/06/2013 PRESCRIP TRANSMIT VIA ERX SY CPT-4: G8553 04/06/2013 KETOROLAC TROMETHAMINE INJ CPT-4: J1885 06/25/2012 PROMETHAZINE HCL INJECTION CPT-4: J2550 06/25/2012 THER/PROPH/DIAG INJ SC/IM CPT-4: 76096 06/25/2012 THER/PROPH/DIAG INJ SC/IM CPT-4: 06074 06/24/2012 METHYLPREDNISOLONE 40 MG INJ CPT-4: J1030 06/24/2012 TRIAMCINOLONE ACET INJ NOS CPT-4: J3301 06/24/2012 URINE CULTURE/ COLONY COUNT CPT-4: 95190 06/24/2012 THER/PROPH/DIAG INJ SC/IM CPT-4: 89840 05/20/2012 KETOROLAC TROMETHAMINE INJ CPT-4: J1885 05/20/2012 THER/PROPH/DIAG INJ SC/IM CPT-4: 24856 05/20/2012 PROMETHAZINE HCL INJECTION CPT-4: J2550 05/20/2012 DRAIN/INJECT JOINT/BURSA CPT-4: 78593 02/13/2012 METHYLPREDNISOLONE 40 MG INJ CPT-4: J1030 02/13/2012 TRIAMCINOLONE ACET INJ NOS CPT-4: J3301 02/13/2012 THER/PROPH/DIAG INJ SC/IM CPT-4: 47311 11/14/2011 METHYLPREDNISOLONE 40 MG INJ CPT-4: J1030 11/14/2011 TRIAMCINOLONE ACET INJ NOS CPT-4: J3301 11/14/2011 THER/PROPH/DIAG INJ SC/IM CPT-4: 26750 09/12/2011 KETOROLAC TROMETHAMINE INJ CPT-4: J1885 09/12/2011 THER/PROPH/DIAG INJ SC/IM CPT-4: 70998 08/09/2011 METHYLPREDNISOLONE 40 MG INJ CPT-4: J1030 08/09/2011 TRIAMCINOLONE ACET INJ NOS CPT-4: J3301 08/09/2011 URINE CULTURE/ COLONY COUNT CPT-4: 29808 07/03/2011 URINE CULTURE/ COLONY COUNT CPT-4: 37064 06/04/2011 THER/PROPH/DIAG INJ SC/IM CPT-4: 12842 05/03/2011 METHYLPREDNISOLONE 40 MG INJ CPT-4: J1030 05/03/2011 TRIAMCINOLONE ACET INJ NOS CPT-4: J3301 05/03/2011 URINALYSIS NONAUTO W/O SCOPE CPT-4: 03983 01/24/2011 URINE CULTURE/ COLONY COUNT CPT-4: 67060 01/24/2011 FLUZONE, 5ML (Medicare) CPT-4: Q2038 01/02/2011 ADMIN INFLUENZA VIRUS VAC CPT-4: G0008 01/02/2011 ASSAY, GLUCOSE, BLOOD QUANT CPT-4: 51941 12/07/2010 URINE CULTURE/ COLONY COUNT CPT-4: 85563 11/02/2010 THER/PROPH/DIAG INJ SC/IM CPT-4: 96195 10/18/2010 METHYLPREDNISOLONE 40 MG INJ CPT-4: J1030 10/18/2010 TRIAMCINOLONE ACET INJ NOS CPT-4: J3301 10/18/2010 TRIAMCINOLONE ACET INJ NOS CPT-4: J3301 05/11/2010 METHYLPREDNISOLONE 40 MG INJ CPT-4: J1030 05/11/2010 THER/PROPH/DIAG INJ SC/IM CPT-4: 76542 05/11/2010 TRIAMCINOLONE ACET INJ NOS CPT-4: J3301 02/09/2010 METHYLPREDNISOLONE 40 MG INJ CPT-4: J1030 02/09/2010 THER/PROPH/DIAG INJ SC/IM CPT-4: 03794 02/09/2010 SERVICE REQUIRED FOR PMD CPT-4: G0372 02/09/2010 FLU VACCINE 3 YRS & > IM UP 64 CPT-4: 63703 0 PNEUMOCOCCAL VACC 23 RANDALL IM CPT-4: 89803 12/07/2009 ADMIN INFLUENZA VIRUS VAC CPT-4: G0008 12/07/2009 ADMIN PNEUMOCOCCAL VACCINE CPT-4: G0009 12/07/2009 TRIAMCINOLONE ACET INJ NOS CPT-4: J3301 05/26/2009 THER/PROPH/DIAG INJ SC/IM CPT-4: 69707 05/26/2009 METHYLPREDNISOLONE 80 MG INJ CPT-4: J1040 [...] 1: 114/72 Code: 8480-6 BMI: 37.8 Code: 73603-2 Heart Rate 1: 72 bpm Height: 5'3" [...] 1: 106/68 Code: 8480-6 BMI: 35.7 Code: 30356-5 Heart Rate 1: 72 bpm Height: 5'4" Respiratory Rate: 20 bpm SpO2: 98% Tempera ture: 36.7 (C) / 98.0 (F) Weight: 208 lbs 04/16/2018 Blood Pressure 1: 132/82 Code: 8480-6 BMI: 37.9 Code: 06645-8 Heart Rate 1: 72 bpm Height: 5'4" Respiratory Rate: 20 bpm SpO2: 96% Tempera ture: 37.1 (C) / 98.8 (F) Weight: 221 lbs 04/01/2018 Blood Pressure 1: 150/90 Code: 8480-6 Heart Rate 1: 72 bpm Respiratory Rate: 22 bpm SpO2: 95% Temperature: 36.4 (C) / 97.6 (F) We ight: 216 lbs 03/06/2018 Blood Pressure 1: 126/78 Code: 8480-6 BMI: 37.4 Code: 06196-9 Heart Rate 1: 68 bpm Height: 5'4" [...] ight: 222 lbs 12/25/2017 BMI: 37.8 Code: 69481-2 Heart Rate 1: 76 bpm Height: 5 '4" Respiratory Rate: 20 bpm SpO2: 96% Temperature: 37.3 (C) / 99.2 (F) Weight: 220 lbs 12/17/2017 Blood Pressure 1: 132/78 Code: 8480-6 BMI: 37.2 Code: 95817-9 Heart Rate 1: 88 bpm Height: 5'4" Respiratory Rate: 20 bpm SpO2: 96% Tempera ture: 37.3 (C) / 99.2 (F) Weight: 217 lbs 10/30/2017 Blood Pressure 1: 114/68 Code: 8480-6 BMI: 36.4 Code: 90831-2 Heart Rate 1: 72 bpm Height: 5'4" Respiratory Rate: 22 bpm SpO2: 96% Tempera ture: 36.8 (C) / 98.2 (F) Weight: 212 lbs 10/23/2017 Blood Pressure 1: 124/78 Code: 8480-6 Heart Rate 1: 72 bpm Respiratory Rate: 24 bpm SpO2: 94% Temperature: 36.6 (C) / 97.9 (F) We ight: 212 lbs 09/17/2017 Blood Pressure 1: 128/82 Code: 8480-6 BMI: 37.4 Code: 66086-5 Heart Rate 1: 72 bpm Height: 5'4" Respiratory Rate: 20 bpm SpO2: 96% Tempera ture: 37.0 (C) / 98.6 (F) Weight: 218 lbs 07/19/2017 Blood Pressure 1: 136/84 Code: 8480-6 BMI: 36.6 Code: 18589-4 Heart Rate 1: 88 bpm Height: 5'4" Respiratory Rate: 20 bpm SpO2: 97% Tempera ture: 36.7 (C) / 98.0 (F) Weight: 213 lbs 05/29/2017 Blood Pressure 1: 136/82 Code: 8480-6 BMI: 36.7 Code: 21410-5 Heart Rate 1: 72 bpm Height: 5'4" Respiratory Rate: 20 bpm SpO2: 97% Tempera ture: 36.9 (C) / 98.4 (F) Weight: 214 lbs 05/07/2017 Blood Pressure 1: 122/80 Code: 8480-6 BMI: 37.1 Code: 66814-2 Heart Rate 1: 80 bpm Height: 5'4" Respiratory Rate: 24 bpm SpO2: 96% Tempera ture: 36.1 (C) / 97.0 (F) Weight: 216 lbs 03/18/2017 BMI: 36.7 Code: 77732-3 Heart Rate 1: 80 bpm Height: 5 '4" Respiratory Rate: 22 bpm SpO2: 95% Temperature: 36.9 (C) / 98.4 (F) Weight: 214 lbs 02/27/2017 Blood Pressure 1: 146/94 Code: 8480-6 BMI: 36.6 Code: 97800-6 Heart Rate 1: 76 bpm Height: 5'4" Respiratory Rate: 22 bpm SpO2: 97% Tempera ture: 36.6 (C) / 97.9 (F) Weight: 213 lbs 02/22/2017 Blood Pressure 1: 126/90 Code: 8480-6 BMI: 36.4 Code: 61326-6 Heart Rate 1: 84 bpm Height: 5'4" Respiratory Rate: 22 bpm SpO2: 95% Tempera ture: 36.9 (C) / 98.4 (F) Weight: 212 lbs 01/23/2017 Blood Pressure 1: 146/82 Code: 8480-6 BMI: 37.6 Code: 49563-1 Heart Rate 1: 96 bpm Height: 5'4" Respiratory Rate: 20 bpm SpO2: 96% Tempera ture: 36.9 (C) / 98.4 (F) Weight: 219 lbs 12/20/2016 Blood Pressure 1: 126/70 Code: 8480-6 BMI: 37.2 Code: 93532-7 Heart Rate 1: 76 bpm Height: 5'4" Respiratory Rate: 22 bpm SpO2: 95% Tempera ture: 36.6 (C) / 97.8 (F) Weight: 217 lbs 10/08/2016 Blood Pressure 1: 128/82 Code: 8480-6 BMI: 36.9 Code: 59136-6 Heart Rate 1: 76 bpm Height: 5'4" Respiratory Rate: 20 bpm SpO2: 95% Tempera ture: 37.0 (C) / 98.6 (F) Weight: 215 lbs 09/19/2016 Blood Pressure 1: 144/78 Code: 8480-6 BMI: 37.8 Code: 95403-8 Heart Rate 1: 76 bpm Height: 5'4" Respiratory Rate: 22 bpm SpO2: 95% Tempera ture: 37.0 (C) / 98.6 (F) Weight: 220 lbs 08/20/2016 Blood Pressure 1: 140/86 Code: 8480-6 BMI: 37.4 Code: 75238-5 Heart Rate 1: 80 bpm Height: 5'4" Respiratory Rate: 20 bpm SpO2: 95% Tempera ture: 36.9 (C) / 98.4 (F) Weight: 218 lbs 06/19/2016 Blood Pressure 1: 12478 Code: 8480-6 BMI: 37.8 Code: 25192-7 Heart Rate 1: 74 bpm Height: 5'4" Respiratory Rate: 24 bpm SpO2: 96% Tempera ture: 36.9 (C) / 98.4 (F) Weight: 220 lbs 06/04/2016 Blood Pressure 1: 124/78 Code: 8480-6 BMI: 38.8 Code: 07249-8 Heart Rate 1: 72 bpm Height: 5'4" Respiratory Rate: 24 bpm SpO2: 95% Tempera ture: 36.8 (C) / 98.2 (F) Weight: 226 lbs 05/02/2016 Blood Pressure 1: 136/90 Code: 8480-6 BMI: 37.6 Code: 41739-6 Heart Rate 1: 72 bpm Height: 5'4" Respiratory Rate: 24 bpm SpO2: 96% Tempera ture: 36.9 (C) / 98.4 (F) Weight: 219 lbs 04/03/2016 Blood Pressure 1: 126/78 Code: 8480-6 BMI: 38.1 Code: 64773-4 Heart Rate 1: 72 bpm Height: 5'4" Respiratory Rate: 22 bpm SpO2: 94% Tempera ture: 36.9 (C) / 98.4 (F) Weight: 222 lbs 02/29/2016 Blood Pressure 1: 132/78 Code: 8480-6 Heart Rate 1: 78 bpm Height: Respiratory Rate: 24 bpm SpO2: 95% Temperature: 36.4 (C) / 97.6 (F) We ight: 02/02/2016 Blood Pressure 1: 124/78 Code: 8480-6 BMI: 37.6 Code: 49270-7 Heart Rate 1: 76 bpm Height: 5'4" Respiratory Rate: 20 bpm SpO2: 95% Tempera ture: 36.8 (C) / 98.2 (F) Weight: 219 lbs 01/05/2016 Blood Pressure 1: 126/70 Code: 8480-6 BMI: 37.1 Code: 67582-5 Heart Rate 1: 76 bpm Height: 5'4" Respiratory Rate: 20 bpm Temperature: 36 .6 (C) / 97.8 (F) Weight: 216 lbs 12/05/2015 Blood Pressure 1: 126/72 Code: 8480-6 BMI: 36.9 Code: 73803-8 Heart Rate 1: 92 bpm Height: 5'4" Respiratory Rate: 20 bpm Temperature: 36 .7 (C) / 98.1 (F) Weight: 215 lbs 10/26/2015 Blood Pressure 1: 142/80 Code: 8480-6 BMI: 36.4 Code: 76465-5 Heart Rate 1: 82 bpm Height: 5'4" Respiratory Rate: 24 bpm SpO2: 92% Tempera ture: 35.9 (C) / 96.7 (F) Weight: 212 lbs 10/05/2015 Blood Pressure 1: 136/82 Code: 8480-6 Heart Rate 1: 80 bpm Respiratory Rate: 18 bpm SpO2: 98% Temperature: 35.7 (C) / 96.3 (F) We ight: 214 lbs 09/15/2015 Blood Pressure 1: 116/80 Code: 8480-6 BMI: 34.6 Code: 09716-8 Heart Rate 1: 76 bpm Height: 5'6" Respiratory Rate: 20 bpm Temperature: 36 .6 (C) / 97.9 (F) Weight: 211 lbs 08/24/2015 Blood Pressure 1: 124/80 Code: 8480-6 BMI: 34.1 Code: 35833-0 Heart Rate 1: 68 bpm Height: 5'6" Respiratory Rate: 20 bpm Temperature: 36 .8 (C) / 98.3 (F) Weight: 208 lbs 07/05/2015 Blood Pressure 1: 114/78 Code: 8480-6 BMI: 33.9 Code: 73329-8 Heart Rate 1: 80 bpm Height: 5'6" Respiratory Rate: 20 bpm Temperature: 36 .6 (C) / 97.9 (F) Weight: 207 lbs 06/06/2015 Blood Pressure 1: 122/78 Code: 8480-6 BMI: 34.1 Code: 05945-1 Heart Rate 1: 76 bpm Height: 5'6" Respiratory Rate: 24 bpm SpO2: 96% Tempera ture: 36.4 (C) / 97.6 (F) Weight: 208 lbs 05/23/2015 Blood Pressure 1: 124/78 Code: 8480-6 Heart Rate 1: 76 bpm Respiratory Rate: 24 bpm SpO2: 93% Temperature: 36.8 (C) / 98.2 (F) We ight: 212 lbs 05/05/2015 Blood Pressure 1: 136/80 Code: 8480-6 BMI: 35.4 Code: 84822-9 Heart Rate 1: 76 bpm Height: 5'6" Respiratory Rate: 28 bpm Temperature: 37 .0 (C) / 98.6 (F) Weight: 216 lbs 03/30/2015 Blood Pressure 1: 132/86 Code: 8480-6 BMI: 35.2 Code: 91893-6 Heart Rate 1: 84 bpm Height: 5'6" Respiratory Rate: 24 bpm Temperature: 36 .7 (C) / 98.0 (F) Weight: 215 lbs 02/03/2015 Blood Pressure 1: 122/74 Code: 8480-6 BMI: 35.7 Code: 78646-4 Heart Rate 1: 84 bpm Height: 5'6" Respiratory Rate: 20 bpm Temperature: 36 .9 (C) / 98.5 (F) Weight: 218 lbs 12/29/2014 Blood Pressure 1: 132/80 Code: 8480-6 BMI: 35.1 Code: 73624-1 Heart Rate 1: 80 bpm Height: 5'6" Respiratory Rate: 20 bpm Temperature: 36 .6 (C) / 97.8 (F) Weight: 214 lbs 09/02/2014 Blood Pressure 1: 128/92 Code: 8480-6 BMI: 34.7 Code: 04068-9 Heart Rate 1: 84 bpm Height: 5'6" Respiratory Rate: 26 bpm Temperature: 36 .8 (C) / 98.2 (F) Weight: 212 lbs 08/25/2014 Blood Pressure 1: 124/80 Code: 8480-6 BMI: 34.7 Code: 45612-7 Heart Rate 1: 78 bpm Height: 5'6" Respiratory Rate: 22 bpm SpO2: 97% Tempera ture: 36.6 (C) / 97.8 (F) Weight: 212 lbs 04/01/2014 Blood Pressure 1: 142/84 Code: 8480-6 BMI: 34.4 Code: 89967-9 Heart Rate 1: 74 bpm Height: 5'5" Respiratory Rate: 20 bpm Temperature: 36 .4 (C) / 97.6 (F) Weight: 207 lbs 03/16/2014 Blood Pressure 1: 142/90 Code: 8480-6 BMI: 34.6 Code: 76450-7 Heart Rate 1: 76 bpm Height: 5'5" Respiratory Rate: 24 bpm Temperature: 36 .5 (C) / 97.7 (F) Weight: 208 lbs 03/09/2014 Blood Pressure 1: 116/70 Code: 8480-6 BMI: 35.3 Code: 99734-6 Heart Rate 1: 72 bpm Height: 5'5" [...] 1: 128/86 Code: 8480-6 BMI: 34.3 Code: 30361-0 Heart Rate 1: 84 bpm Height: 5'5" Respiratory Rate: 20 bpm Temperature: 36 .7 (C) / 98.0 (F) Weight: 206 lbs 12/23/2013 Blood Pressure 1: 122/70 Code: 8480-6 BMI: 34.3 Code: 77952-1 Heart Rate 1: 68 bpm Height: 5'5" Respiratory Rate: 20 bpm Temperature: 36 .8 (C) / 98.2 (F) Weight: 206 lbs 10/05/2013 Blood Pressure 1: 118/76 Code: 8480-6 BMI: 34.1 Code: 35016-3 Heart Rate 1: 68 bpm Height: 5'5" Respiratory Rate: 20 bpm SpO2: 98% Tempera ture: 36.6 (C) / 97.9 (F) Weight: 205 lbs 08/04/2013 Blood Pressure 1: 126/82 Code: 8480-6 BMI: 33.3 Code: 73545-1 Heart Rate 1: 76 bpm Height: 5'5" Respiratory Rate: 20 bpm Temperature: 36 .8 (C) / 98.2 (F) Weight: 200 lbs 07/03/2013 Blood Pressure 1: 124/82 Code: 8480-6 BMI: 33.3 Code: 54550-9 Heart Rate 1: 72 bpm Height: 5'5" Respiratory Rate: 22 bpm Temperature: 36 .1 (C) / 97.0 (F) Weight: 200 lbs 05/27/2013 Blood Pressure 1: 126/82 Code: 8480-6 Heart Rate 1: 74 bpm Respiratory Rate: 20 bpm Temperature: 36.0 (C) / 96.8 (F) Weight: 199 lbs 04/06/2013 Blood Pressure 1: 118/80 Code: 8480-6 BMI: 35.2 Code: 48848-4 Heart Rate 1: 80 bpm Height: 5'4" Respiratory Rate: 20 bpm Temperature: 37 .4 (C) / 99.3 (F) Weight: 205 lbs 11/10/2012 Blood Pressure 1: 128/82 Code: 8480-6 Heart Rate 1: 84 bpm Respiratory Rate: 20 bpm Temperature: 36.7 (C) / 98.0 (F) Weight: 199 lbs 09/02/2012 Blood Pressure 1: 116/82 Code: 8480-6 BMI: 34.2 Code: 03661-2 Heart Rate 1: 88 bpm Height: 5'4" Respiratory Rate: 22 bpm Temperature: 36 .6 (C) / 97.8 (F) Weight: 199 lbs 08/04/2012 Blood Pressure 1: 128/74 Code: 8480-6 BMI: 34.0 Code: 39569-9 Heart Rate 1: 92 bpm Height: 5'4" Respiratory Rate: 20 bpm Temperature: 36 .4 (C) / 97.5 (F) Weight: 198 lbs 07/21/2012 Blood Pressure 1: 124/86 Code: 8480-6 Heart Rate 1: 116 bpm Respiratory Rate: 24 bpm Temperature: 36.8 (C) / 98.2 (F) 07/02/2012 Blood Pressure 1: 116/88 Code: 8480-6 BMI: 33.6 Code: 47032-2 Heart Rate 1: 76 bpm Height: 5'4" Respiratory Rate: 20 bpm Temperature: 36 .8 (C) / 98.3 (F) Weight: 196 lbs 06/24/2012 Blood Pressure 1: 124/80 Code: 8480-6 BMI: 34.3 Code: 78929-6 Heart Rate 1: 72 bpm Height: 5'4" SpO2: 96% Temperature: 36.3 (C) / 97.3 (F) Weight: 200 lbs 05/20/2012 Blood Pressure 1: 116/88 Code: 8480-6 BMI: 33.8 Code: 19751-9 Heart Rate 1: 80 bpm Height: 5'4" Respiratory Rate: 22 bpm Temperature: 36 .9 (C) / 98.4 (F) Weight: 197 lbs 05/08/2012 Blood Pressure 1: 128/86 Code: 8480-6 BMI: 33.8 Code: 71076-6 Heart Rate 1: 76 bpm Height: 5'4" Respiratory Rate: 26 bpm SpO2: 95% Tempera ture: 36.1 (C) / 97.0 (F) Weight: 197 lbs 04/22/2012 Blood Pressure 1: 106/64 Code: 8480-6 BMI: 33.8 Code: 44754-9 Heart Rate 1: 70 bpm Height: 5'4" Temperature: 36.1 (C) / 97.0 (F) Weight: 197 lbs 02/13/2012 Blood Pressure 1: 126/82 Code: 8480-6 BMI: 34.7 Code: 57594-6 Heart Rate 1: 64 bpm Height: 5'4" Respiratory Rate: 20 bpm Temperature: 36 .6 (C) / 97.8 (F) Weight: 202 lbs 01/28/2012 Blood Pressure 1: 116/80 Code: 8480-6 BMI: 34.7 Code: 38583-3 Heart Rate 1: 76 bpm Height: 5'4" Respiratory Rate: 20 bpm Temperature: 36 .8 (C) / 98.3 (F) Weight: 202 lbs 12/26/2011 Blood Pressure 1: 132/82 Code: 8480-6 BMI: 36.0 Code: 32064-0 Heart Rate 1: 68 bpm Height: 5'4" Respiratory Rate: 22 bpm Temperature: 36 .7 (C) / 98.0 (F) Weight: 210 lbs 11/14/2011 Blood Pressure 1: 124/80 Code: 8480-6 BMI: 36.4 Code: 27154-0 Heart Rate 1: 76 bpm Height: 5'4" Respiratory Rate: 20 bpm Temperature: 36 .8 (C) / 98.2 (F) Weight: 212 lbs 09/12/2011 Blood Pressure 1: 108/74 Code: 8480-6 BMI: 37.1 Code: 02278-4 Heart Rate 1: 72 bpm Height: 5'4" Respiratory Rate: 20 bpm Temperature: 37 .0 (C) / 98.6 (F) Weight: 216 lbs 08/15/2011 Blood Pressure 1: 122/80 Code: 8480-6 BMI: 36.9 Code: 18235-1 Heart Rate 1: 76 bpm Height: 5'4" Respiratory Rate: 20 bpm Temperature: 36 .2 (C) / 97.1 (F) Weight: 215 lbs 08/09/2011 Blood Pressure 1: 112/78 Code: 8480-6 BMI: 36.9 Code: 48758-4 Heart Rate 1: 68 bpm Height: 5'4" Respiratory Rate: 20 bpm Temperature: 36 .7 (C) / 98.0 (F) Weight: 215 lbs 07/03/2011 Blood Pressure 1: 140/94 Code: 8480-6 BMI: 36.2 Code: 53663-0 Heart Rate 1: 68 bpm Height: 5'4" Temperature: 36.0 (C) / 96.8 (F) Weight: 211 lbs 06/04/2011 Blood Pressure 1: 124/70 Code: 8480-6 BMI: 36.7 Code: 74154-4 Heart Rate 1: 68 bpm Height: 5'4" Respiratory Rate: 20 bpm Temperature: 36 .6 (C) / 97.9 (F) Weight: 214 lbs 05/03/2011 Blood Pressure 1: 130/76 Code: 8480-6 BMI: 36.4 Code: 42921-7 Heart Rate 1: 74 bpm Height: 5'5" Temperature: 36.2 (C) / 97.2 (F) Weight: 219 lbs 04/05/2011 Blood Pressure 1: 124/86 Code: 8480-6 BMI: 35.9 Code: 17875-2 Heart Rate 1: 76 bpm Height: 5'6" Respiratory Rate: 22 bpm Temperature: 36 .3 (C) / 97.3 (F) Weight: 219 lbs 03/08/2011 Blood Pressure 1: 112/78 Code: 8480-6 BMI: 35.1 Code: 81629-0 Heart Rate 1: 80 bpm Height: 5'6" Respiratory Rate: 26 bpm Temperature: 36 .9 (C) / 98.4 (F) Weight: 214 lbs 01/24/2011 Blood Pressure 1: 110/82 Code: 8480-6 BMI: 35.6 Code: 99687-6 Heart Rate 1: 80 bpm Height: 5'6" Temperature: 36.1 (C) / 97.0 (F) Weight: 217 lbs 01/02/2011 Blood Pressure 1: 106/72 Code: 8480-6 BMI: 35.6 Code: 71832-5 Heart Rate 1: 76 bpm Height: 5'6" [...] 1: 120/74 Code: 8480-6 BMI: 35.9 Code: 39456-3 Heart Rate 1: 72 bpm Height: 5'5" Temperature: 36.3 (C) / 97.4 (F) Weight: 216 lbs 09/19/2010 Blood Pressure 1: 124/80 Code: 8480-6 BMI: 35.4 Code: 43026-9 Heart Rate 1: 76 bpm Height: 5'5" [...] 1: 122/78 Code: 8480-6 BMI: 37.4 Code: 02740-4 Heart Rate 1: 84 bpm Height: 5'5" [...] follow up 06/19/2016 1 week [facility] follow up 06/04/2016 1mo fwup follow up 05/02/2016 Hospital fwup follow up 04/03/2016 dyspnea 02/29/2016 low grade 99s follow up 02/02/2016 ER fwup diabetes mellitus 01/05/2016 painful urination 12/05/2015 follow up 10/26/2015 ER visit from at [facility] for COPD Exacerbation follow up 10/05/2015 ER Visit gait abnormality 09/15/2015 Patient requesting kelly pineda paperwork to be filled out disturbances of thinking 08/24/2015 follow up 07/05/2015 4wk fwup follow up 06/06/2015 [facility] fw cough 05/23/2015 follow up 05/05/2015 dyspnea 03/30/2015 [facility] needs new orde r for O2 abdominal pain 02/03/2015 cyst 12/29/2014 vs abscess follow up 09/02/2014 [facility] headache 08/25/2014 facial drooping follow [...] up 10/18/[address] Marcela sagastume w [facility], having increased allergy symptoms. Would like steroid [...] month f/u follow up 12/07/[address] [facility], done with PT--finished about 2wks [...] Hyperglycemia[ICD10: R73.9] Diagnosis: Edema[ICD10: R60.9] Belia Shi [employer] CPT-4: 36138 09/02/2019 OFFICE/OUTPATIENT VISIT EST Diagnosis: Fibromyalgia[ICD10: M79.7] Diagnosis: Muscle weakness[ICD10: M62.81] Diagnosis: Generalized pain[ICD10: R52] Diagnosis: Hypoxia[ICD10: R09.02] Diagnosis: Migraine[ICD10: G43.909] Belia POP [facility] CPT-4: 61747 08/25/2019 ([id number]) OFFICE/OUTPATIENT VISIT EST Diagnosis: Yawning[ICD10: R06.89] Diagnosis: LION (obstructive sleep apnea)[ICD10: G47.33] Pattie BRUNSON [employer] CPT-4: 55920 08/10/2019 ([id number]) OFFICE/OUTPATIENT VISIT EST Diagnosis: Pelvic pain in female[ICD10: R10.2] Diagnosis: Left leg swelling[ICD10: M79.89] Diagnosis: Dyspnea[ICD10: R06.00] Diagnosis: Constipation[ICD10: K59.00] Pattie BRUNSON [employer] CPT-4: 58104 08/04/2019 ([id number]) OFFICE/OUTPATIENT VISIT EST Diagnosis: Inspiratory stridor[ICD10: R06.1] Diagnosis: Diarrhea[ICD10: R19.7] Belia Reid [facility] CPT-4: 9921 3 07/06/2019 ([id number]) OFFICE/OUTPATIENT VISIT EST Diagnosis: Left leg swelling[ICD10: M79.89] Diagnosis: Dyspnea[ICD10: R06.00] Belia Reid [facility] CPT-4: 9921 3 06/24/2019 ([id number]) OFFICE/OUTPATIENT VISIT EST Diagnosis: Acute bronchitis[ICD10: J20.9] Diagnosis: Colitis[ICD10: K52.9] Belia REID [employer] CPT-4: 44139 06/16/2019 ([id number]) OFFICE/OUTPATIENT VISIT EST Diagnosis: Diarrhea[ICD10: R19.7] Diagnosis: Abdominal bloating[ICD10: R14.0] Belia Reid [facility] CPT- 4: 11751 06/08/2019 ([id number]) OFFICE/OUTPATIENT VISIT EST Diagnosis: Acute febrile illness[ICD10: R50.9] Diagnosis: Colitis[ICD10: K52.9] Belai Reid [facility] CPT-4: 31594 05/26/2019 ([id number]) OFFICE/OUTPATIENT VISIT EST Diagnosis: Chronic obstructive pulmonary disease, unspecified[ICD10: J44.9] Diagnosis: Pulmonary fibrosis[ICD10: J84.10] Diagnosis: Intermittent stridor[ICD10: R06.1] Diagnosis: Muscle weakness[ICD10: M62.81] Belia REID [facility] CPT-4: 07364 05/13/2019 ([id number]) OFFICE/OUTPATIENT VISIT EST Diagnosis: Stridor[ICD10: R06.1] Diagnosis: COUGH[ICD10: R05] Belia REID [facility] CPT-4: 07902 05/06/2019 ([id number]) OFFICE/OUTPATIENT VISIT EST Diagnosis: Stridor[ICD10: R06.1] Diagnosis: Muscle, jerky movements (uncontrolled)[ICD10: G25.5] Belia REID [facility] CPT-4: 65937 04/29/2019 ([id number]) OFFICE/OUTPATIENT VISIT EST Diagnosis: Upper respiratory infection[ICD10: J06.9] Diagnosis: Flank pain[ICD10: R10.9] Diagnosis: Weight gain[ICD10: R63.5] Pattie AMBRIZ [facility] CPT-4: 81557 04/16/2019 ([id number]) OFFICE/OUTPATIENT VISIT EST Diagnosis: Generalized pruritus[ICD10: L29.9] Belia REID [facility] CPT-4: 50605 04/08/2019 ([id number]) OFFICE/OUTPATIENT VISIT EST Diagnosis: Acute bursitis of left shoulder[ICD10: M75.52] Diagnosis: Cervicalgia[ICD10: M54.2] Diagnosis: Chest wall pain[ICD10: R07.89] Belia REID [facility] CPT-4: 48392 01/22/2019 ([id number]) OFFICE/OUTPATIENT VISIT EST Diagnosis: Abdominal pain[ICD10: R10.9] Diagnosis: Pyelonephritis[ICD10: N12] Pattie DOMINGUEZ [facility] CPT-4: 29491 01/07/2019 ([id number]) OFFICE/OUTPATIENT VISIT EST Diagnosis: Low back pain[ICD10: M54.5] Diagnosis: Left lumbar radiculopathy[ICD10: M54.16] Diagnosis: Left flank pain[ICD10: R10.9] Diagnosis: Left lower quadrant pain[ICD10: R10.32] Diagnosis: FLU VACCINE[ICD10: Z23] Belia FREDERICK [facility] CPT-4: 86447 12/24/2018 ([id number]) OFFICE/OUTPATIENT VISIT EST Diagnosis: Migraine, unspecified, not intractable, without status migrainosus[ICD10: G43.909] Diagnosis: Fibromyalgia[ICD10: M79.7] Belia DOMINGUEZ [employer] [facility] CPT-4: 67942 11/20/2018 ([id number]) OFFICE/OUTPATIENT VISIT EST Diagnosis: Migraine, unspecified, intractable, without status migrainosus[ICD10: G43.919] Diagnosis: Acute sinusitis, unspecified[ICD10: J01.90] Pattie REID DO [facility] CPT-4: 93421 11/04/2018 ([id number]) OFFICE/OUTPATIENT VISIT EST Diagnosis: Pain in left wrist[ICD10: M25.532] Diagnosis: Other dorsalgia[ICD10: M54.89] Pattie REID DO [facility] CPT-4: 26826 09/08/2018 ([id number]) OFFICE/OUTPATIENT VISIT EST Diagnosis: Acute stress reaction[ICD10: F43.0] Diagnosis: Pruritus, unspecified[ICD10: L29.9] 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, 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] Belia REID [facility] CPT-4: 40042 08/20/2018 ([id number]) OFFICE/OUTPATIENT VISIT EST Diagnosis: Hypotension due to drugs[ICD10: I95.2] Diagnosis: Paroxysmal atrial fibrillation[ICD10: I48.0] Diagnosis: Localized edema[ICD10: R60.0] Belia REID [facility] CPT-4: 23594 06/19/2018 ([id number]) OFFICE/OUTPATIENT VISIT EST Diagnosis: Generalized hyperhidrosis[ICD10: R61] Diagnosis: Essential (primary) hypertension[ICD10: I10] Diagnosis: Supraventricular tachycardia[ICD10: I47.1] Belia REID DO [facility] CPT-4: 49705 06/09/2018 ([id number]) OFFICE/OUTPATIENT VISIT EST Diagnosis: Stridor[ICD10: R06.1] Diagnosis: Dependence on supplemental oxygen[ICD10: Z99.81] Diagnosis: Weakness[ICD10: R53.1] Diagnosis: Supraventricular tachycardia[ICD10: I47.1] Belia REID DO [facility] CPT-4: 18841 05/21/2018 ([id number]) OFFICE/OUTPATIENT VISIT EST Diagnosis: Cervical disc disorder with radiculopathy, unspecified cervical region[ICD10: M50.10] Belia REID [facility] CPT-4: 59153 04/16/2018 ([id number]) OFFICE/OUTPATIENT VISIT EST Diagnosis: Migraine, unspecified, intractable, without status migrainosus[ICD10: G43.919] Diagnosis: Fibromyalgia[ICD10: M79.7] Pattie DOMINGUEZ [facility] CPT-4: 08529 04/01/2018 ([id number]) NURSE/OUTPATIENT VISIT EST Diagnosis: Hematuria, unspecified[ICD10: R31.9] Diagnosis: Dysuria[ICD10: R30.0] Belia REID [facility] CPT-4: 03186 03/17/2018 ([id number]) OFFICE/OUTPATIENT VISIT EST Diagnosis: Erythema intertrigo[ICD10: L30.4] Diagnosis: Chronic obstructive pulmonary disease with (acute) exacerbation[ICD10: J44.1] Diagnosis: Type 2 diabetes mellitus with hyperglycemia[ICD10: E11.65] Belia REID [facility] CPT-4: 36420 03/06/2018 ([id number]) OFFICE/OUTPATIENT VISIT EST Diagnosis: Cervicalgia[ICD10: M54.2] Pattie AMBRIZ [facility] CPT-4: 91960 02/05/2018 ([id number]) OFFICE/OUTPATIENT VISIT EST Diagnosis: Candidiasis of skin and nail[ICD10: B37.2] Diagnosis: Cervicalgia[ICD10: M54.2] Pattie AMBRIZ [facility] CPT-4: 15535 01/20/2018 ([id number]) OFFICE/OUTPATIENT VISIT EST Diagnosis: Pain in thoracic spine[ICD10: M54.6] Diagnosis: Radiculopathy, thoracic region[ICD10: M54.14] Belia REID [facility] CPT-4: 16468 12/25/2017 ([id number]) OFFICE/OUTPATIENT VISIT EST Diagnosis: Pain in thoracic spine[ICD10: M54.6] Diagnosis: Other muscle spasm[ICD10: M62.838] Diagnosis: FLU VACCINE[ICD10: Z23] Diagnosis: PNEUMOCOCCAL VACCINE[ICD10: Z23] Belia REID DO [facility] CPT-4: 84437 12/17/2017 ([id number]) OFFICE/OUTPATIENT VISIT EST Diagnosis: Chronic obstructive pulmonary disease with (acute) exacerbation[ICD10: J44.1] Belia REID DO [facility] CPT- 4: 54621 10/30/2017 ([id number]) OFFICE/OUTPATIENT VISIT EST Diagnosis: Chronic obstructive pulmonary disease with acute lower respiratory infection[ICD10: J44.0] Diagnosis: Mild intermittent asthma with (acute) exacerbation[ICD10: J45.21] Belia REID DO [facility] CPT-4: 92997 10/23/2017 ([id number]) NURSE/OUTPATIENT VISIT EST Diagnosis: Migraine, unspecified, not intractable, without status migrainosus[ICD10: G43.909] Belia REID DO [facility] CPT - 4: 11723 08/26/2017 ([id number]) OFFICE/OUTPATIENT VISIT EST Diagnosis: Urinary tract infection, site not specified[ICD10: N39.0] Diagnosis: Encounter for screening for osteoporosis[ICD10: Z13.820] Diagnosis: Encounter for screening mammogram for malignant neoplasm of breast[ICD10: Z12.31] Diagnosis: Acute bronchitis, unspecified[ICD10: J20.9] Pattie REID DO [facility] CPT-4: 13262 07/19/2017 ([id number]) OFFICE/OUTPATIENT VISIT EST Diagnosis: Rash and other nonspecific skin eruption[ICD10: R21] Pattie REID DO [facility] CPT-4: 02069 05/29/2017 ([id number]) OFFICE/OUTPATIENT VISIT EST Diagnosis: Diarrhea, unspecified[ICD10: R19.7] Diagnosis: Tinea corporis[ICD10: B35.4] Diagnosis: Tinea cruris[ICD10: B35.6] Diagnosis: Migraine, unspecified, not intractable, without status migrainosus[ICD10: G43.909] Belia SMITHER [facility] CPT - 4: 71403 05/07/2017 ([id number]) OFFICE/OUTPATIENT VISIT EST Diagnosis: Stridor[ICD10: R06.1] Diagnosis: Chronic obstructive pulmonary disease with (acute) exacerbation[ICD10: J44.1] Belia REID [facility] CPT- 4: 64063 03/18/2017 ([id number]) OFFICE/OUTPATIENT VISIT EST Diagnosis: Type 2 diabetes mellitus with hyperglycemia[ICD10: E11.65] Belia REID [facility] CPT-4: 26584 02/27/2017 OFFICE/OUTPATIENT VISIT EST Diagnosis: Type 2 diabetes mellitus with hyperglycemia[ICD10: E11.65] Pattie REID [facility] CPT-4: 16040 02/22/2017 ([id number]) OFFICE/OUTPATIENT VISIT EST Diagnosis: Urinary tract infection, site not specified[ICD10: N39.0] Diagnosis: Pneumonia, unspecified organism[ICD10: J18.9] Diagnosis: Type 2 diabetes mellitus with hyperglycemia[ICD10: E11.65] [facility] 42828 01/23/2017 ([id number]) OFFICE/OUTPATIENT VISIT EST Diagnosis: Type 2 diabetes mellitus with hyperglycemia[ICD10: E11.65] Diagnosis: Localized edema[ICD10: R60.0] Diagnosis: PNEUMOCOCCAL VACCINE[ICD10: Z23] Diagnosis: FLU VACCINE[ICD10: Z23] Belia SMITH [facility] CPT-4: 70814 12/20/2016 OFFICE/OUTPATIENT VISIT EST Diagnosis: Pain in thoracic spine[ICD10: M54.6] Diagnosis: Low back pain[ICD10: M54.5] Diagnosis: Cervicalgia[ICD10: M54.2] Diagnosis: Cough[ICD10: R05] Celeste Ferreira BELIA REID [facility] CPT-4: 84464 10/08/2016 ([id number]) OFFICE/OUTPATIENT VISIT EST Diagnosis: Primary insomnia[ICD10: F51.01] Diagnosis: Migraine, unspecified, not intractable, without status migrainosus[ICD10: G43.909] Diagnosis: Type 2 diabetes mellitus with hyperglycemia[ICD10: E11.65] Belia REID DO [facility] CPT-4: 47693 09/19/2016 ([id number]) OFFICE/OUTPATIENT VISIT EST Diagnosis: Migraine, unspecified, not intractable, without status migrainosus[ICD10: G43.909] Diagnosis: Generalized abdominal pain[ICD10: R10.84] Diagnosis: Cough[ICD10: R05] Belia REID DO [facility] CPT-4: 18421 08/20/2016 ([id number]) OFFICE/OUTPATIENT VISIT EST Diagnosis: Chronic obstructive pulmonary disease, unspecified[ICD10: J44.9] Diagnosis: Stridor[ICD10: R06.1] Belia REID DO [facility] CPT-4: 49488 06/19/2016 ([id number]) OFFICE/OUTPATIENT VISIT EST Diagnosis: Chronic obstructive pulmonary disease, unspecified[ICD10: J44.9] Diagnosis: Personal history of urinary (tract) infections[ICD10: Z87.440] Belia REID DO [facility] CPT-4: 27714 06/04/2016 ([id number]) OFFICE/OUTPATIENT VISIT EST Diagnosis: Stridor[ICD10: R06.1] Diagnosis: Chronic obstructive pulmonary disease with acute lower respiratory infection[ICD10: J44.0] Diagnosis: Other specified diseases of intestine[ICD10: K63.89] Diagnosis: Cystitis, unspecified without hematuria[ICD10: N30.90] Belia REID DO [facility] CPT-4: 88171 05/02/2016 ([id number]) OFFICE/OUTPATIENT VISIT EST Diagnosis: Fibromyalgia[ICD10: M79.7] Diagnosis: Urinary tract infection, site not specified[ICD10: N39.0] Belia REID DO [facility] CPT-4: 65491 04/03/2016 ([id number]) OFFICE/OUTPATIENT VISIT EST Diagnosis: Unspecified asthma, uncomplicated[ICD10: J45.909] Diagnosis: Cough[ICD10: R05] Lidia Jaiden REID [facility] T-4: 29758 02/29/2016 ([id number]) OFFICE/OUTPATIENT VISIT EST Diagnosis: Migraine, unspecified, intractable, without status migrainosus[ICD10: G43.919] Diagnosis: Urinary tract infection, site not specified[ICD10: N39.0] Beliahanna REID [facility] CPT-4: 65335 02/02/2016 ([id number]) OFFICE/OUTPATIENT VISIT EST Diagnosis: Urinary tract infection, site not specified[ICD10: N39.0] Diagnosis: Unspecified abdominal pain[ICD10: R10.9] Diagnosis: Pain in thoracic spine[ICD10: M54.6] Diagnosis: Type 2 diabetes mellitus with diabetic neuropathic arthropathy[ICD10: E11.610] Belia REID [facility] CPT-4: 45555 12/05/2015 ([id number]) OFFICE/OUTPATIENT VISIT EST Diagnosis: Chronic obstructive pulmonary disease with (acute) exacerbation[ICD10: J44.1] Diagnosis: Migraine, unspecified, not intractable, without status migrainosus[ICD10: G43.909] Lidia REID [facility] CPT -4: 14360 10/26/2015 ([id number]) OFFICE/OUTPATIENT VISIT EST Diagnosis: Hematuria, unspecified[ICD10: R31.9] Diagnosis: Urinary tract infection, site not specified[ICD10: N39.0] Lidia TomlinsonMayda ANUSHKA [facility] CPT-4: 89106 10/05/2015 OFFICE/OUTPATIENT VISIT EST Diagnosis: Chronic obstructive pulmonary disease, unspecified[ICD10: J44.9] Diagnosis: Muscle weakness (generalized)[ICD10: M62.81] Diagnosis: Polyneuropathy, unspecified[ICD10: G62.9] Diagnosis: Other intervertebral disc degeneration, 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] Diagnosis: Fibromyalgia[ICD10: M79.7] Belia Anushka HSUQUELINE Yuridia DOMINGUEZ [facility] CPT-4: 71735 09/15/2015 ([id number]) OFFICE/OUTPATIENT VISIT EST Diagnosis: Disorientation, unspecified[ICD10: R41.0] Diagnosis: Headache[ICD10: R51] Diagnosis: Paresthesia of skin[ICD10: R20.2] Lidia REID [facility] CPT-4: 89039 08/24/2015 ([id number]) OFFICE/OUTPATIENT VISIT EST Diagnosis: Type 2 diabetes mellitus with hyperglycemia[ICD10: E11.65] Diagnosis: Chronic obstructive pulmonary disease with acute lower respiratory infection[ICD10: J44.0] Belia REID DO [facility] CPT-4: 35601 07/05/2015 ([id number]) OFFICE/OUTPATIENT VISIT EST Diagnosis: Mild intermittent asthma with (acute) exacerbation[ICD10: J45.21] Diagnosis: Chronic obstructive pulmonary disease, unspecified[ICD10: J44.9] Belia REID [facility] CPT-4: 95601 06/06/2015 ([id number]) OFFICE/OUTPATIENT VISIT EST Diagnosis: Chronic obstructive pulmonary disease with (acute) exacerbation[ICD10: J44.1] Lidia REID [facility] CPT- 4: 98718 05/23/2015 ([id number]) OFFICE/OUTPATIENT VISIT EST Diagnosis: Type 2 diabetes mellitus with hyperglycemia[ICD10: E11.65] Diagnosis: Functional dyspepsia[ICD10: K30] Belia REID [facility] CPT-4: 08195 05/05/2015 ([id number]) OFFICE/OUTPATIENT VISIT EST Diagnosis: Type 2 diabetes mellitus with hyperglycemia[ICD10: E11.65] Diagnosis: Glycosuria[ICD10: R81] Diagnosis: Urinary tract infection, site not specified[ICD10: N39.0] Belia REID [facility] CPT-4: 73933 03/30/2015 ([id number]) OFFICE/OUTPATIENT VISIT EST Diagnosis: Generalized abdominal pain[ICD10: R10.84] Diagnosis: Diarrhea, unspecified[ICD10: R19.7] Diagnosis: Urinary tract infection, site not specified[ICD10: N39.0] Diagnosis: Gastro-esophageal reflux disease without esophagitis[ICD10: K21.9] Belia REID [facility] CPT-4: 20817 02/03/2015 ([id number]) OFFICE/OUTPATIENT VISIT EST Diagnosis: Other specified noninflammatory disorders of vagina[ICD10: N89.8] Diagnosis: Follicular disorder, unspecified[ICD10: L73.9] Diagnosis: Functional dyspepsia[ICD10: K30] Diagnosis: FLU VACCINE[ICD10: Z23] Beliahanna Reid [facility]IA Bush[facility]Mayda [facility] CPT-4: 30529 12/29/2014 ([id number]) OFFICE/OUTPATIENT VISIT EST 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] Diagnosis: RESTLESS LEGS SYNDROME[ICD9: 333.94] Diagnosis: MIGRAINE NOS/NOT INTRCBL[ICD9: 346.90] Belia Smithotoniel SONJA ULUBNA BushraMayda [facility] CPT-4: 90789 09/02/2014 ([id number]) OFFICE/OUTPATIENT VISIT EST Diagnosis: Cervical radiculopathy[ICD9: 723.4] Diagnosis: Cervicalgia[ICD9: 723.1] Diagnosis: Degenerative disc disease, cervical[ICD9: 722.4] 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I[ICD9: 250.00] Beliahanna Humphriesnilson BRUNSON BushraMayda [facility] CPT-[facility]: 99762 04/01/2014 OFFICE/OUTPATIENT VISIT EST Diagnosis: Reactive airway disease[ICD9: 493.90] Belia Anushka HSUPAUL LUBNA BushraMayda [facility] CPT-4: 18203 03/16/2014 ([id number]) OFFICE/OUTPATIENT VISIT EST Diagnosis: BRONCHITIS, ACUTE[ICD9: 466.0] Diagnosis: Reactive airway disease[ICD9: 493.90] Belia FONTAINE LUBNA BushraMayda [facility] CPT-4: 33095 03/09/2014 OFFICE/OUTPATIENT VISIT EST Diagnosis: BRONCHITIS, ACUTE[ICD9: 466.0] Diagnosis: WHEEZING[ICD9: 786.07] Huong [facility]: 47076 03/03/2014 OFFICE/OUTPATIENT VISIT EST Diagnosis: BRONCHITIS, ACUTE[ICD9: 466.0] Diagnosis: WHEEZING[ICD9: 786.07] [facility]: 55835 03/01/2014 ([id number]) OFFICE/OUTPATIENT VISIT EST Diagnosis: GERD[ICD9: 530.81] Diagnosis: ARTHRALGIA-MULTIPLE SITES[ICD9: 719.49] Diagnosis: LUMB/LUMBOSAC DISC DEGEN[ICD9: 722.52] Diagnosis: - I - FIBROMYALGIA[ICD9: 729.1] Belia Zacharyisabellaotoniel HSUBELIA BushraMayda [facility]IEL [facility] CPT-4: 07543 02/09/2014 ([id number]) OFFICE/OUTPATIENT VISIT EST Diagnosis: Peptic ulcer disease[ICD9: 533.90] Diagnosis: RESTLESS LEGS SYNDROME[ICD9: 333.94] Diagnosis: Neuropathy[ICD9: 355.9] Belia Zacharyisabellaotoniel BELIA BushraMayda [facility] OTONIEL [facility] CPT-4: 17391 12/23/2013 ([id number]) OFFICE/OUTPATIENT VISIT EST Diagnosis: URINARY TRACT INFECTION[ICD9: 599.0] Belia Zacharynilson HSUQUE CLAYTON BushraMayda [facility] CPT-[facility]: 44676 10/30/2013 ([id number]) OFFICE/OUTPATIENT VISIT EST Diagnosis: Flank pain[ICD9: 789.00] Belia Humphriesisabellaotoniel BELIA BushraMayda KIESHA [facility] CPT-4: 23628 10/21/2013 ([id number]) OFFICE/OUTPATIENT VISIT EST Diagnosis: INFLAMED SEBORR KERATOS[ICD9: 702.11] Diagnosis: Brachioradial pruritus[ICD9: 698.9] Diagnosis: ASTHMA NOS[ICD9: 493.90] Belia Zacharynilson BRUNSON BushraMayda KIESHA VIRGILIO [facility] CPT-4: 50253 10/05/2013 ([id number]) OFFICE/OUTPATIENT VISIT EST Diagnosis: HYPERTENSION[ICD9: 401.9] Diagnosis: - I - FIBROMYALGIA[ICD9: 729.1] Diagnosis: DIZZINESS/VERTIGO[ICD9: 780.4] Diagnosis: MIGRAINE NOS/NOT INTRCBL[ICD9: 346.90] Diagnosis: Diabetic peripheral neuropathy[ICD9: 250.60] Diagnosis: Flank pain[ICD9: 789.00] Belia BRUNSON BushraMayda KIESHA [facility] CPT-4: 29257 08/04/2013 ([id number]) OFFICE/OUTPATIENT VISIT EST Diagnosis: ALLERGIC RHINITIS[ICD9: 477.9] Belia Zacharynilson BRUNSON Bushra Mayda ANUSHKA [facility] CPT-4: 62885 07/13/2013 OFFICE/OUTPATIENT VISIT EST Diagnosis: URINARY TRACT INFECTION[ICD9: 599.0] Huong De LunaFidepool REID [facility] CPT-4: 60325 07/03/2013 OFFICE/OUTPATIENT VISIT EST Diagnosis: HYPERTENSION[ICD9: 401.9] Diagnosis: URINARY TRACT INFECTION[ICD9: 599.0] Diagnosis: BACKACHE[ICD9: 724.5] Diagnosis: URINARY INCONTINENCE[ICD9: 788.30] Huong De LunaKp ARACELISROBERTOKIMI MARIE BushraMayda [facility] CPT-4: 43997 05/27/2013 ([id number]) OFFICE/OUTPATIENT VISIT EST Diagnosis: Flank pain[ICD9: 789.00] Belia POOLE [facility] CPT-4: 81153 05/25/2013 ([id number]) OFFICE/OUTPATIENT VISIT EST Diagnosis: B-COMPLEX DEFIC NEC[ICD9: 266.2] Belia Zacharynilson BRUNSON BushraMayda [facility] CPT-4: 17646 05/04/2013 ([id number]) OFFICE/OUTPATIENT VISIT EST Diagnosis: ALLERGIC RHINITIS[ICD9: 477.9] Diagnosis: Vitamin B12 deficiency[ICD9: 266.2] Belia THOMPSON BushraMayda ANUSHKA [facility] CPT-4: 00757 04/17/2013 ([id number]) OFFICE/OUTPATIENT VISIT EST 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I[ICD9: 250.00] Diagnosis: URINARY TRACT INFECTION[ICD9: 599.0] Diagnosis: DIZZINESS/VERTIGO[ICD9: 780.4] Diagnosis: DIARRHEA[ICD9: 787.91] Belia Peguero [facility] CPT-4: 21193 04/06/2013 ([id number]) OFFICE/OUTPATIENT VISIT EST Diagnosis: URINARY TRACT INFECTION[ICD9: 599.0] Diagnosis: URINARY RETENTION[ICD9: 788.20] Belia [facility]UNSON BushraMayda [facility]: 35543 11/10/2012 ([id number]) OFFICE/OUTPATIENT VISIT EST Diagnosis: TACHYCARDIA[ICD9: 785.0] Diagnosis: SYNCOPE AND COLLAPSE[ICD9: 780.2] Diagnosis: CONSCIOUSNS ALTERAT NEC[ICD9: 780.09] Belia Smithotoniel MINAL REID [facility] CPT-4: 49847 09/02/2012 OFFICE/OUTPATIENT VISIT EST Diagnosis: TACHYCARDIA[ICD9: 785.0] Diagnosis: SYNCOPE AND COLLAPSE[ICD9: 780.2] Belia REID [facility] CPT-4: 90871 08/04/2012 ([id number]) OFFICE/OUTPATIENT VISIT EST Diagnosis: Loss of consciousness[ICD9: 780.09] Diagnosis: Tachycardia[ICD9: 785.0] Diagnosis: MALAISE AND FATIGUE[ICD9: 780.79] [facility]: 56039 07/21/2012 ([id number]) OFFICE/OUTPATIENT VISIT EST Diagnosis: BRONCHITIS, ACUTE[ICD9: 466.0] Diagnosis: ASTHMA NOS[ICD9: 493.90] Belia POOLE [facility] CPT-4: 76077 07/02/2012 ([id number]) OFFICE/OUTPATIENT VISIT EST Diagnosis: CEPHALGIA[ICD9: 784.0] Belia CORNELLLINE Yuridia Peguero [facility] CPT-4: 75475 06/25/2012 ([id number]) OFFICE/OUTPATIENT VISIT EST Diagnosis: GERD[ICD9: 530.81] Diagnosis: DIARRHEA[ICD9: 787.91] Diagnosis: URINARY TRACT INFECTION[ICD9: 599.0] Diagnosis: ASTHMA NOS[ICD9: 493.90] Diagnosis: ALLERGIC RHINITIS[ICD9: 477.9] Belia Humphriesisabellaotoniel CORNELLBELIA Bushra REID [facility] CPT-4: 77767 06/24/2012 ([id number]) OFFICE/OUTPATIENT VISIT EST Diagnosis: MIGRAINE NOS/NOT INTRCBL[ICD9: 346.90] Diagnosis: TREMOR NEC[ICD9: 333.1] Diagnosis: CHRONIC PAIN SYNDROME[ICD9: 338.4] Belia SALAZAR BushraMayda ANUSHKA [facility] CPT-4: 68640 05/20/2012 ([id number]) OFFICE/OUTPATIENT VISIT EST Diagnosis: DIZZINESS/VERTIGO[ICD9: 780.4] Diagnosis: PALPITATIONS[ICD9: 785.1] Diagnosis: TREMOR NEC[ICD9: 333.1] Diagnosis: ANXIETY STATE NOS[ICD9: 300.00] Diagnosis: POSTTRAUMATIC STRESS DISORDER[ICD9: 309.81] Belia Zacharynilson BRUNSON BushraMayda ANUSHKA [facility] CPT-4: 69898 05/08/2012 ([id number]) OFFICE/OUTPATIENT VISIT EST Diagnosis: MIGRAINE NOS/NOT INTRCBL[ICD9: 346.90] Diagnosis: FIBROMYALGIA[ICD9: 729.1] Diagnosis: SYNCOPE AND COLLAPSE[ICD9: 780.2] Diagnosis: Diabetic peripheral neuropathy[ICD9: 250.60] Belia Zacharynilson BELIA BushraMayda ANUSHKA [facility] CPT-4: 42585 04/22/2012 OFFICE/OUTPATIENT VISIT EST Diagnosis: ROTATOR CUFF DIS NEC[ICD9: 726.19] Diagnosis: JOINT PAIN-SHLDER[ICD9: 719.41] Diagnosis: DYSPEPSIA[ICD9: 536.8] Belia Zacharynilson BELIA BushraMayda RALF Peguero [facility] CPT-4: 42706 02/13/2012 ([id number]) OFFICE/OUTPATIENT VISIT EST Diagnosis: MIGRAINE NOS/NOT INTRCBL[ICD9: 346.90] Diagnosis: GERD[ICD9: 530.81] Diagnosis: DYSPEPSIA[ICD9: 536.8] Belia BRUNSON BushraMayda RALF Peguero [facility] CPT-4: 34829 01/28/2012 OFFICE/OUTPATIENT VISIT EST Diagnosis: CEPHALGIA[ICD9: 784.0] Diagnosis: MIGRAINE NOS/NOT INTRCBL[ICD9: 346.90] Diagnosis: GERD[ICD9: 530.81] Diagnosis: INSOMNIA NOS[ICD9: 780.52] Belia Shi RAND ALBERTO [facility] CPT-4: 19928 12/26/2011 ([id number]) OFFICE/OUTPATIENT VISIT EST Diagnosis: CEPHALGIA[ICD9: 784.0] Diagnosis: MIGRAINE NOS/NOT INTRCBL[ICD9: 346.90] Diagnosis: MALAISE AND FATIGUE[ICD9: 780.79] Diagnosis: FIBROMYALGIA[ICD9: 729.1] Diagnosis: ALLERGIC RHINITIS[ICD9: 477.9] Belia CORNELLLINE Bushra Mayda ANUSHKA [facility] CPT-4: 69928 11/14/2011 ([id number]) OFFICE/OUTPATIENT VISIT EST Diagnosis: MALAISE AND FATIGUE[ICD9: 780.79] Diagnosis: MUSCLE WEAKNESS-GENERAL[ICD9: 728.87] Diagnosis: MIGRAINE NOS/NOT INTRCBL[ICD9: 346.90] Diagnosis: JOINT PAIN-SHLDER[ICD9: 719.41] Belia Orenilson BRUNSON BushraMayda ANUSHKA [facility] CPT-4: 26395 09/12/2011 ([id number]) OFFICE/OUTPATIENT VISIT EST Diagnosis: CONCUSSION[ICD9: 850.9] Diagnosis: Ataxia[ICD9: 781.3] Diagnosis: DIZZINESS/VERTIGO[ICD9: 780.4] Belia Reid BEILA Bushra Mayda ANUSHKA [facility] CPT-4: 19244 08/15/2011 ([id number]) OFFICE/OUTPATIENT VISIT EST Diagnosis: THROMBOPHLEBITIS[ICD9: 451.9] Diagnosis: Subacromial bursitis[ICD9: 726.19] Diagnosis: ALLERGIC RHINITIS[ICD9: 477.9] Diagnosis: Lipoma[ICD9: 214.9] Belia Humphriesisabellaotoniel HSUBELIA BushraMayda ANUSHKA [facility] CPT-4: 99409 08/09/2011 ([id number]) OFFICE/OUTPATIENT VISIT EST Diagnosis: THROMBOPHLEBITIS[ICD9: 451.9] Diagnosis: Arm pain[ICD9: 729.5] Diagnosis: Clostridium difficile colitis[ICD9: 008.45] Diagnosis: URINARY TRACT INFECTION[ICD9: 599.0] Belia Zacharynilson ARNOLD BushraMayda ANUSHKA [facility] CPT-4: 84656 07/03/2011 ([id number]) OFFICE/OUTPATIENT VISIT EST Diagnosis: ARTHRALGIA-MULTIPLE SITES[ICD9: 719.49] Diagnosis: Muscle cramp[ICD9: 729.82] Diagnosis: INSOMNIA NOS[ICD9: 780.52] [facility]: 57108 06/04/2011 OFFICE/OUTPATIENT VISIT EST Diagnosis: Headache[ICD9: 784.0] Diagnosis: Allergic rhinitis[ICD9: 477.9] [facility]: 92606 05/03/2011 OFFICE/OUTPATIENT VISIT EST Diagnosis: LUMB/LUMBOSAC DISC DEGEN[ICD9: 722.52] Diagnosis: MIGRAINE NOS/NOT INTRCBL[ICD9: 346.90] Diagnosis: CHRONIC PAIN SYNDROME[ICD9: 338.4] Diagnosis: RESTLESS LEGS SYNDROME[ICD9: 333.94] Belia Zacharynilson ARNOLD Yuridia [facility] CPT-4: 88243 04/05/2011 OFFICE/OUTPATIENT VISIT EST Diagnosis: MIGRAINE NOS/NOT INTRCBL[ICD9: 346.90] Diagnosis: GERD[ICD9: 530.81] Belia HSUQUELINE Bush[facility]Mayda [facility]: 82514 03/08/2011 OFFICE/OUTPATIENT VISIT EST Diagnosis: URINARY TRACT INFECTION[ICD9: 599.0] Diagnosis: Vertigo[ICD9: 780.4] Diagnosis: GERD[ICD9: 530.81] Belia Zacharynilson BELIA BushraMayda [facility] CPT-4: 35670 01/24/2011 OFFICE/OUTPATIENT VISIT EST Diagnosis: Hypotension[ICD9: 458.9] Diagnosis: Syncopal episodes[ICD9: 780.2] Diagnosis: MIGRAINE NOS/NOT INTRCBL[ICD9: 346.90] Diagnosis: MALAISE AND FATIGUE[ICD9: 780.79] Belia Zacharynilson Paredes [facility]idia [facility] C[facility]: 00551 01/02/2011 OFFICE/OUTPATIENT VISIT EST Diagnosis: Tinea cruris[ICD9: 110.3] Diagnosis: Intertrigo[ICD9: 695.89] Diagnosis: MIGRAINE NOS/NOT INTRCBL[ICD9: 346.90] Belia COKER BushraMayda [facility] CPT-4: 12926 12/07/2010 OFFICE/OUTPATIENT VISIT EST Diagnosis: PALPITATIONS[ICD9: 785.1] Diagnosis: ANXIETY STATE NOS[ICD9: 300.00] Belia [facility]SON [facility] CPT-4: 23486 11/16/2010 OFFICE/OUTPATIENT VISIT EST Diagnosis: URINARY TRACT INFECTION[ICD9: 599.0] Diagnosis: MIGRAINE NOS/NOT INTRCBL[ICD9: 346.90] Iraida CASILLAS UELINE [facility] CPT-4: 43297 11/02/2010 OFFICE/OUTPATIENT VISIT EST Diagnosis: ALLERGIC RHINITIS[ICD9: 477.9] Diagnosis: ANXIETY STATE NOS[ICD9: 300.00] Belia Anushka BRUNSON [facility] CPT-4: 76587 10/18/2010 OFFICE/OUTPATIENT VISIT EST Belia [facility] CPT- 4: 32762 09/19/2010 OFFICE/OUTPATIENT VISIT EST Belia [facility]UNSON [facility] CPT- 4: 45629 09/06/2010 ([id number]) OFFICE/OUTPATIENT VISIT EST Belia Anushka CASILLAS [facility] CPT-4: 54072 08/10/2010 ([id number]) OFFICE/OUTPATIENT VISIT EST Belia CASILLAS U[facility] CPT-4: 90445 05/11/2010 ([id number]) OFFICE/OUTPATIENT VISIT, EST Belia Anushka MEJIALINE [facility] CPT-4: 30937 04/06/2010 ([id number]) OFFICE/OUTPATIENT VISIT, EST Belia Zacharyisabellaotoniel ARACELIS QUELINE [facility] CPT-4: 80057 02/09/2010 ([id number]) OFFICE/OUTPATIENT VISIT, EST Belia HSU QUELINE [facility] CPT-4: 74389 01/05/2010 ([id number]) OFFICE/OUTPATIENT VISIT, EST Belia HSU QUELINE [facility] CPT-4: 54231 12/07/2009 ([id number]) OFFICE/OUTPATIENT VISIT, EST Belia HSU ROBERTOLINE [facility] CPT-4: 33440 11/08/2009 ([id number]) OFFICE/OUTPATIENT VISIT, RIOS REID DO [facility] CPT-4: 78101 10/24/2009 ([id number]) OFFICE/OUTPATIENT VISIT, EST Belia REID DO [facility] CPT-4: 59340 07/25/2009 ([id number]) OFFICE/OUTPATIENT VISIT, RIOS REID DO [facility] CPT-4: 87795 05/26/2009 Plan of Care Planned Activity Notes [...] Plan: CT HEAD/BRAIN W/O DYE LOINC : 35527-4 Pending 09/02/2019 Visit Diagnosis Plan: Generalized pain [...] Appointment: Belia Reid WPtel: [phone] Rosenbaum [id number] ACUTE ILLNESS 08/25/2019 Patient Education: meloxicam- [employer] Coupon [id number] https://www.[employer]/samplemd/resources/getResource/61/[email or web address]-[email or web address]-[email or web address] Completed 08/25/2019 Patient Education: baclofen- [employer] Coupon [id number] https://www.[employer]/resources/getResource/61/f98y288z-5n1f-20w8-ao Completed 08/25/2019 Visit Diagnosis Plan: Yawning Discussion: [...] new home sleep study on patient through gobles to assess severity of symptoms, patient does wear her oxygen at night though. educated on importance of wearing oxygen at all times, even when in public. ICD-9 : 786.09 ICD-10 : R06.89 08/10/2019 Appointment: Pattie Sotomayor [address] [place], [place] [id number] ACUTE ILLNESS 08/10/2019 Visit Diagnosis Plan: Left [...] : R10.2 08/04/2019 Appointment: Pattie Sotomayor [address] [place] [address] ACUTE ILLNESS 08/04/2019 Visit Diagnosis Plan: Inspiratory stridor Discussion: Continue oxygen via NC at 2 L Continue ativan at QID Follow Up: 4 weeks ICD-9 : 786.1 ICD-10 : R06.1 07/06/2019 Visit Diagnosis Plan: Diarrhea Discussion: Restart Col estid at once daily ICD-9 : 787.91 ICD-10 : R19.7 07/06/2019 Appointment: Belia Reid WPtel: [phone] [id number] TELEMEDICINE 07/06/2019 Visit Diagnosis Plan: Left leg swelling Discussion: [facility] LLE venous doppler--patient states is scheduled for [...] R06.00 06/24/2019 Appointment: Belia Reid WPtel: [phone] [id number] TELEMEDICINE 06/24/2019 Visit Diagnosis Plan: Colitis Discussion: Levaquin/[place] gyl [place] Diet ICD-9 : 558.9 ICD-10 : K52.9 06/16/2019 Visit Diagnosis Plan: Acute bronchitis Discussion: Cov er with levaquin Increase SVNs with albuterol to QID Has oxygen using q HS routinely and prn To ER if oxygen levels drop or worsening respiratory symptoms ICD-9 : 466.0 ICD-10 : J20.9 06/16/2019 Appointment: Belia Reid WPtel: [address] [place] [address] TELEMEDICINE 06/16/2019 Patient Education: Levaquin- [employer] Coupon [phone] [id number] https://www.[employer]/resources/getResource/61/[email or web address]-[email or web address] Completed 06/16/2019 Visit Diagnosis Plan: Diarrhea Discussion: Vancomycin for 10 days and notify if not improving or worsening BLAND diet Hydrate ICD-9 : 787.91 ICD-10 : R19.7 06/08/2019 Appointment: Belia Reid WPtel: [address] [place] [address] TELEMEDICINE 06/08/2019 Visit Diagnosis Plan: Colitis Discussion: Flagyl plus cipro to cover for both colitis and UTI Notify or to ER if worsening ICD-9 : 558.9 ICD-10 : K52.9 05/26/2019 Visit Diagnosis Plan: Acute febrile illness Discussion : Notify if worsens ICD-9 : 780.60 ICD-10 : R50.9 05/26/2019 Appointment: Belia Reid WPtel: [address] [place] [address] TELEMEDICINE 05/26/2019 Appointment: Pattie Sotomayor [address] RESCHEDULED 05/18/2019 Visit Diagnosis Plan: Chronic obstructive pulmonary di sease, unspecified Discussion: Recommend pulmonary rehab Patient states she never went to pulmonary rehab due to cost as well as transportation issues Finish trelagy Stop singulair Decrease hydroxyzine to 25mg po q HS Fwup [address] scan of Chest results discussed ICD-9 : 496 ICD-10 : J44.9 05/13/2019 Appointment: Belia Reid WPtel: [address] [place] [address] Hospital Follow Up 05/13/2019 Visit Diagnosis Plan: COUGH Discussion: Check CT scan of chest ICD-9 : 786.2 ICD-10 : R05 05/06/2019 Visit Diagnosis Plan: Stridor Discussion: Add Trelagy 1 p daily Add Singulair 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 ICD-9 : 786.1 ICD-10 : R06.1 05/06/2019 Appointment: Belia eRid WPtel: [address] [place] [address] FOLLOW UP 05/06/2019 Patient Education: Singulair- Optimize[employer] Coupon [id number] https://www.Shijiebang/[employer]/resources/getResource/61/6810520q-y10e-73f5-ig Completed 05/06/2019 Appointment: Belia Reid WPtel: [address] [place] [address] RESCHEDULED 04/30/2019 Visit Diagnosis Plan: Stridor Discussion: [...] : G25.5 04/29/2019 Appointment: Belia Reid WPtel: [address] [place] [address] Hospital Follow Up 04/29/2019 Patient Education: Valium- [employer] Coupon [id number] https://www.Shijiebang/[employer]/resources/getResource/61/s66740ts-130w-8f96-4w Completed 04/29/2019 Visit Diagnosis Plan: Flank pain [...] ICD-10 : R63.5 04/16/2019 Appointment: Pattie Sotomayor [address] [place], [place] [address] ACUTE ILLNESS 04/16/2019 Patient Education: cyclobenzaprine- [employer] Coupon [id number] https://www.Shijiebang/samplemd/resources/getResource/61/ub17u9d3-6042-3204-d9 Completed 04/16/2019 Visit Diagnosis Plan: Migraine, unspecif ied, not intractable, without status migrainosus Discussion: Increase gabapentin to 600mg po BID ICD-9 : 346.90 ICD-10 : G43.909 04/08/2019 Visit Diagnosis Plan: Generalized pruritus Discussion: Hydroxyzine 25mg po TID for itching and anxiety ICD-9 : 698.9 ICD-10 : L29.9 04/08/2019 Appointment: Belia Reid WPtel: [address] [place] [address] ACUTE ILLNESS 04/08/2019 Visit Diagnosis Plan: Cervicalgia [...] M75.52 01/22/2019 Appointment: Belia Reid WPtel: [facility] Hospital Follow Up 01/22/2019 Visit Diagnosis Plan: Abdominal pain Discussion: urine culture sent to assess for any infection. rocephin given in office to cover for pyelonephritis. instructed to push fluids. call office with any new or worsening symptoms. ICD-9 : 789.00 ICD-10 : R10.9 01/07/2019 Appointment: Pattie Sotomayor [address] [place] [address] ACUTE ILLNESS 01/07/2019 Visit Diagnosis Plan: Low back pain Discussion: Stat C T of abdomen/pelvis now ICD-9 : 724.2 ICD-10 : M54.5 12/24/2018 Appointment: Belia Reid WPtel: [address] [place] [address] [place] FOLLOW UP 12/24/2018 Visit Diagnosis Plan: [...] : M79.7 11/20/2018 Appointment: Belia Reid WPtel: [address] [place] [address] ACUTE ILLNESS 11/20/2018 Patient Education: baclofen- [employer] Coupon [id number] https://www.[employer].com/samplemd/resources/getResource/61/7s6954f5-ep1z-71vq-14 Completed 11/20/2018 Visit Diagnosis Plan: Migraine, unspecif ied, intractable, without status migrainosus Discussion: toradol/phenergan given in o ffice (60 mg toradol, 12.5 mg phenergan). instructed to call if no improvement or worsening. instructed to follow up with contact lens polisher since headaches are occurring more frequently to make sure vision is not the cause. ICD-9 : 346.91 ICD-10 : G43.919 11/04/2018 Visit Diagnosis Plan: Acute sinusitis, unspecified Dis cussion: zithromax prescribed to cover for sinus infection due to length of symptoms and clinincal s/s. ICD-9 : 461.9 ICD-10 : J01.90 11/04/2018 Appointment: [facility] [facility] 11/04/2018 Appointment: Bel[facility] Reid [facility]Ptel[facility] [facility] [facility] CANCELED 09/24/2018 Visit Diagnosis Plan: Type 2 diabetes me llitus with diabetic neuropathy, unspecified Discussion: Retry gabapentin 300mg po q HS ICD-9 : 250.60 ICD-10 : E11.40 09/18/2018 Visit Diagnosis Plan: Vitamin D deficiency, unspecifie d Discussion: Increase Vitamin D3 to 10,000 u daily ICD-9 : 268.9 ICD-10 : E55.9 09/18/2018 Visit Diagnosis Plan: Encounter for [facility] adult medical examination without abnormal findings [...] I10 09/18/2018 Appointment: Belia Reid WPtel: [address] [facility] Annual Well Visit 09/18/2018 Patient Education: gabapentin- OptimizeRX Coupon [id number] https://www.[employer].com/samplemd/resources/getResource/61/4d83tn44-4gb0-6ebz-z1 Completed 09/18/2018 Visit Diagnosis Plan: Pain in [...] : M54.89 09/08/2018 Appointment: Pattie Sotomayor [address] [place], [place] [address] ACUTE ILLNESS 09/08/2018 Patient Education: prednisone- OptimizeRX Coupon [id number] https://www.[employer]/samplemd/resources/getResource/61/1p3cx61e-7975-27p0-hu Completed 09/08/2018 Visit Diagnosis Plan: Pruritus, unspecified [...] E10.9 08/20/2018 Appointment: Belia Reid WPtel: [facility]8 [facility]6[address] ACUTE ILLNESS 08/20/2018 Patient Education: Lexapro- OptimizeRX Coupon [id number] Completed 08/20/2018 Patient Education: hydroxyzine HCl- Optimize[employer] Coupon [id number] Completed 08/20/2018 Care Plan: MAMMOGRAM SCREENING LOINC : 2 6347-5 Pending 08/20/2018 Visit Diagnosis Plan: Paroxysmal atrial fibrillation D iscussion: Discuss eliquis need with cardiology at [facility] due to cost ICD-9 : 427.31 ICD-10 : I48.0 06/19/2018 Visit Diagnosis Plan: Hypotension due to drugs Discuss ion: Discussed decreasing cardizem dose due to low BP and edema but sees cardiology next week Follow Up: 1 months ICD-9 : 458.8 ICD-10 : I95.2 06/19/2018 Appointment: Belia Reidtel: [address] [place], [place] [address] [place] FOLLOW UP 06/19/2018 Visit Diagnosis Plan: [...] : R61 06/09/2018 Appointment: Belia Reid WPtel: [facility]9 [facility] FOLLOW UP 06/09/2018 Care Plan: CHEST X-RAY 2VW FRONTAL&LATL LOINC : 70370-3 Pending 05/26/2018 Visit Diagnosis Plan: Supraventricular tachycardia [...] 780.79 ICD-10 : R53.1 05/21/2018 Appointment: Belia Reidtel: [facility]4 [facility] Hospital Follow Up 05/21/2018 Visit Diagnosis Plan: Cervical disc diso rder with radiculopathy, unspecified cervical region Discussion: Scheduled for surgery on 06/02 10/[address] Faulkner ICD-9 : 722.0 ICD-10 : M50.10 04/16/2018 Appointment: Belia Reid WPtel: [address] [place] [address] Follow Up 04/16/2018 Visit Diagnosis Plan: Fibromyalgia [...] : G43.919 04/01/2018 Appointment: Pattie Sotomayor [address] [place] [address] ACUTE ILLNESS 04/01/2018 Appointment: Belia Reid WPtel: [address] [place] [address] 03/17/2018 Visit Diagnosis Plan: Chronic obstructiv e [...] : E11.65 03/06/2018 Appointment: Belia Reid WPtel: [address] [place] [address] Hospital Follow Up 03/06/2018 Visit Diagnosis Plan: Cervicalgia Discussion: spoke wi th dr. reid about patient. increased gabapentin to bid and started on celebrex bid. tramadrol rx written out to take prn. keep scheduled appt next week for myelogram. ICD-9 : 723.1 ICD-10 : M54.2 02/05/2018 Appointment: Pattie Sotomayor [address] [place] [address] ACUTE ILLNESS 02/05/2018 Care Plan: X-RAY EXAM NECK SPINE 4/5VWS cervical LOINC : 10807-1 Pending 01/21/2018 Visit Diagnosis Plan: Candidiasis of [...] ICD-10 : M54.2 01/20/2018 Appointment: Pattie Sotomayor [address] [place] [address] ACUTE ILLNESS 01/20/2018 Visit Diagnosis Plan: Pain in thoracic spine Discussio n: Proceed with CT scan of thoracic spine Will likely need PT ICD-9 : 724.1 ICD-10 : M54.6 12/25/2017 Appointment: Belia Reid WPtel: [address] [place] [address] FOLLOW UP 12/25/2017 Care Plan: CT THORAX W/O DYE LOINC : 473 66-0 Pending 12/25/2017 Visit Diagnosis Plan: Pain in thoracic spine Discussio n: Stretches Alternated heat/ice Topical aspercreme with lidocaine Flexeril Recheck 1 week Flu and Pneumovax given ICD-9 : 724.1 ICD-10 : M54.6 12/17/2017 Appointment: Belia Reid WPtel: [facility] ACUTE ILLNESS 12/17/2017 Patient Education: Patient [...] : J44.1 10/30/2017 Appointment: Belia Reid WPtel: [address] [place], [place] [address] FOLLOW UP 10/30/2017 Patient Education: Patient Medication Summary Completed 10/30/2017 Visit Diagnosis Plan: Chronic obstructiv e pulmonary disease with acute lower respiratory infection Discussion: Continue SVNs with albuterol q4hrs Add Trelagy 1 inhalation daily Finish steroids Increase water intake Follow Up: 1 weeks ICD-9 : 496 ICD-10 : J44.0 10/23/2017 Appointment: Belia Reid WPtel: [address] [place], [place] [address] WORK IN 10/23/2017 Patient Education: Patient Medication Summary Completed 10/23/2017 Appointment: Belia Reid WPtel: [address] [place], [place] [address] NO SHOW 10/16/2017 Visit Diagnosis Plan: [...] : E11.65 09/17/2017 Appointment: Belia Reid WPtel: [address] [place], [place] [address] Annual Well Visit 09/17/2017 Patient Education: Patient Medication Summary Completed 09/17/2017 Appointment: Belia Reid WPtel: [address] [place], [place] [phone] US INJECTION 08/26/2017 Patient Education: Patient Medication Summary Completed 08/26/2017 Appointment: Belia Reid WPtel: [phone] [id number] [place] CANCELED 07/31/2017 Visit Diagnosis Plan: Encounter [...] ICD-10 : J20.9 07/19/2017 Appointment: Pattie Sotomayor [address] [place], [place] [id number] ACUTE ILLNESS 07/19/2017 Patient Education: Patient Medication Summary Completed 07/19/2017 Care Plan: MAMMOGRAM SCREENING LOINC : 2 6347-5 Pending 07/19/2017 Patient Education: Patient Medication Summary Completed 06/05/2017 Care Plan: LIPID PANEL LOINC : 86682-3 Pending 06/05/2017 Care Plan: A1C HPLC LOINC : 36792-4 Pending 06/05/2017 Visit Diagnosis Plan: Rash and [...] ICD-10 : R21 05/29/2017 Appointment: Pattie Sotomayor [address] [place] [address] FOLLOW UP 05/29/2017 Patient Education: Patient Medication Summary Completed 05/29/2017 Visit Diagnosis Plan: Tinea corporis Discussion: Diflu can and topical nystatin Follow Up: 2 weeks ICD-9 : 110.5 ICD-10 : B35.4 05/07/2017 Visit Diagnosis Plan: Diarrhea, unspecified Discussion : Diflucan Cholestyramine Recheck 2weeks ICD-9 : 787.91 ICD-10 : R19.7 05/07/2017 Appointment: Belia Reid WPtel: [address] [place] [address] US FOLLOW UP 05/07/2017 Patient Education: Patient Medication Summary Completed 05/07/2017 Appointment: Belia Reidtel: [address] [place] [address] US RESCHEDULED 04/30/2017 Visit Diagnosis Plan: Chronic obstructiv e pulmonary disease with (acute) exacerbation Discussion: Finish prednisone Continue S VNS with albuterol ICD-9 : 491.21 ICD-10 : J44.1 03/18/2017 Visit Diagnosis Plan: Stridor Discussion: Increase Ati van 0.5mg po to TID routinely for next week then can go back to prn ICD-9 : 786.1 ICD-10 : R06.1 03/18/2017 Appointment: Belia Reid WPtel: [address] [place], [place] [address] ER Follow UP 03/18/2017 Patient Education: Patient [...] E11.65 02/27/2017 Appointment: Belia Reid WPtel: [address] [facility] [facility] FOLLOW UP 02/27/2017 Patient [...] ICD-10 : E11.65 02/22/2017 Appointment: Pattie Sotomayor [facility] [id number] [place] ACUTE ILLNESS 02/22/2017 Patient Education: Patient [...] J18.9 01/23/2017 Appointment: Belia Reid WPtel: [address] [facility] [facility] Follow UP 01/23/2017 Patient Education: Patient Medication Summary Completed 01/23/2017 Appointment: Pattie Sotomayor [facility] [id number] CANCELED 01/17/2017 Appointment: Pattie Sotomayor [facility] [id number] Annual Well Visit 01/14/2017 Visit Diagnosis Plan: Type 2 diabetes mellitus with hy perglycemia Discussion: Check CMP, HbA1C Flu shot and Prevnar 13 given Follow Up: 3 months ICD-9 : 250.02 ICD-10 : E11.65 12/20/2016 Visit Diagnosis Plan: Localized edema Discussion: Low Na diet Compression socks/Elevate feet ICD-9 : 782.3 ICD-10 : R60.0 12/20/2016 Appointment: Belia Reid WPtel: [address] [place], [place] [address] FOLLOW UP 12/20/2016 Patient Education: Patient Medication Summary Completed 12/20/2016 Patient Education: Patient Medication Summary Completed 10/10/2016 Visit Plan: Xrays of cervical, thoracic and lumbar spine at [facility] for Mobic (stop NSAIDS except Tylenol) and Flexeril UA sent for C&S Using SVN Call in 2-3 days if pain not improved or any worsening 10/08/2016 Appointment: Celeste Ferreira WPtel: [address] [place] [address] ACUTE ILLNESS 10/08/2016 Patient Education: Patient Medication [...] : E11.65 09/19/2016 Appointment: Belia Reid WPtel: [address] [place], [place] [address] 09/18 confirmed`sl FOLLOW UP 09/19/2016 Patient [...] : R10.84 08/20/2016 Appointment: Belia Reid WPtel: [address] [place], [place] [address] 08/16 confirmed~ FOLLOW UP 08/20/2016 Patient Education: [...] : J44.9 06/19/2016 Appointment: Belia Reid WPtel: [address] [place], [place] [address] 06/18 confirmed ~ Hospital Follow Up 06/19/2016 [...] : Z87.440 06/04/2016 Appointment: Belia Reid WPtel: [address] [place], [place] [phone] 06/01 confirmed~sl FOLLOW UP 06/04/2016 Patient Education: [...] : R06.1 05/02/2016 Appointment: Belia Reid WPtel: [address] [place], [place] [phone] 05/01 confirmed [facility] Hospital Follow Up 05/02/2016 Patient Education: [...] : N39.0 04/03/2016 Appointment: Belia Reid WPtel: [address] [place], [place] [phone] [facility] 04/03/2016 Patient Education: Patient Medication Summary Completed 04/03/2016 Visit Plan: Lungs are clear Her symptoms and exam are all upper airway restriction/constriction Can try supportive care Rx as above Follow up PRN 02/29/2016 Appointment: Lidia Hwang [address] [place], [place] [phone] ACUTE ILLNESS 02/29/2016 Patient Education: Patient Medication Summary Completed 02/29/2016 Visit Plan: Toradol/Phenergan today for Migraine Change to Clindamycin to cover lactobacillus for UTI Cover with flagyl due to hx of C. Diff 02/02/2016 Appointment: Belia Reid WPtel: [address] [place], [place] [phone] 01/31 confirmed`sl ACUTE ILLNESS 02/02/2016 Patient Education: Patient Medication Summary Completed 02/02/2016 Visit Plan: Increase neurontin to 300mg q AM and 600mg q PM Discussed neurology re-evaluation Flu shot given Need to check on Pneumonia shot Rx written out for albuterol 01/05/2016 Appointment: Belia Reid WPtel: [address] [place], [place] [phone] 01/03 confirmed ~sl Annual Well Visit 01/05/2016 Patient Education: Patient Medication Summary Completed 01/05/2016 Visit Plan: Cipro Culture urine hydrate Flexeril refilled Alternate heat and ice for back Increase gabapentin to 300mg po BID Notify if worsens 12/05/2015 Appointment: Belia Reid WPtel: [address] [place], [place] [address] 11/30 confirmed~sl ACUTE ILLNESS 12/05/2015 Patient Education: Patient Medication Summary Completed 12/05/2015 Patient Education: Patient Medication Summary Completed 10/27/2015 Care Plan: COMPREH[place]AB[place] : 71637-4 Pending 10/27/2015 Care Plan: A1C HPLC LOINC : 17853-4 Pending 10/27/2015 Visit Plan: Lungs are CTA today and is f eeling improved overall Finish meds as ordered Continue inhalers and neb treatments Discussed migraine treatment options She does not feel she needs anything additional added today Refill of Januvia sent since no samples are available today 10/26/2015 Appointment: [facility] [facility] Follow Up 10/26/2015 Appointment: Lidia Hwang 2[address] [facility]6[address] CANCELED 10/26/2015 Patient Education: Patient Medication Summary Completed 10/26/2015 Patient Education: Natalia - 18+ - KENNETH - No [place] Completed 10/26/2015 Visit Plan: Office dip still abnormal Cu lture pending Switch to cipro - stop macrobid Push fluids - avoid caffeine Will call with culture results when available Follow up if worsening 10/05/2015 Appointment: Jaiden Lidia [address] [facility] ER Follow UP 10/05/2015 Patient Education: Patient Medication Summary Completed 10/05/2015 Visit Plan: Proceed with PT for document ation of ROM and strength of all extremities Proceed with Power Mobility Device Trial of neurontin 300mg q HS--lyrica helped but patient unable to afford Recheck 1month 09/15/2015 Appointment: Belia Reid WPtel: [address] [place], [place] [phone] 09/13 confirmed~sl SPECIAL 09/15/2015 Patient Education: Patient Medication Summary Completed 09/15/2015 Visit Plan: Fille out Loan Discharge Pap erwork for total and permanent disability 08/25/2015 Patient Education: Patient Medication Summary Completed 08/25/2015 Visit Plan: Discussed with Dr Anushka Haywood at CT of head Will get last date of carotid doppler from her back tender and update if needed 08/24/2015 Appointment: JaidenLidia [address] [place], [place] [phone] 08/22 confirmed~sl ACUTE ILLNESS 08/24/2015 Patient Education: Patient Medication Summary Completed 08/24/2015 Patient Education: Patient Medication Summary Completed 08/24/2015 Care Plan: US EXAM OF HEAD AND NECK carotid Ultrasound LOIN C : 47366-4 Pending 08/24/2015 Visit Plan: Long discussion about diet A ccuchecks daily Check HbA1C, CMP Change requip to mirapex 07/05/2015 Appointment: Belia Reid WPtel: [address] [place], [place] [phone] 07/03 confirmed ~sl FOLLOW UP 07/05/2015 Patient Education: Patient Medication Summary Completed 07/05/2015 Visit Plan: Add Breo ellipta 100 1 p BID Continue SVNs with duoneb QID 06/06/2015 Appointment: Belia Reid WPtel: [address] [place], [place] [phone] Patient is calling for a ride, then [...] not improving 05/23/2015 Appointment: Huong Osborne WPtel: [address] [place], [place] [phone] ACUTE ILLNESS 05/23/2015 Appointment: Lidia Hwang [address] [place], [place] [phone] ER Follow UP 05/23/2015 Patient Education: Patient Medication Summary Completed 05/23/2015 Visit Plan: Check pancreatic enzymes and US of pancreas as patient can't understand why she has diabetes since has no family history Discussed weight, diet, exercise all play an important role in diabetes and are risk factors as well Continue Januvia and accuchecks daily 05/05/2015 Appointment: Belia Reid WPtel: [address] [place], [place] [phone] US FOLLOW UP 05/05/2015 Patient Education: Patient Medication Summary Completed 05/05/2015 Care Plan: US EXAM ABDOM COMPLETE LOINC : 16282-1 Ordered 05/05/2015 Visit Plan: Start Januvia 100mg daily [place] with diflucan and culture urine Accuchecks daily alternating times Recheck 6weeks 03/30/2015 Appointment: Belia Reid WPtel: [facility] [place] 03/29 confirmed~lb FOLLOW UP 03/30/2015 Patient Education: Patient Medication Summary Completed 03/30/2015 Appointment: Belia Reid WPtel: [address] [place], [place] [phone] [place] 03/01 needs reschedule due to payment and insurance ~ FOLLOW UP 03/02/2015 Visit Plan: Patient was just in ER last night so has not filled scripts yet Start Carafate and Flagyl and Cipro Add Hyophen 1 po BID Recheck 1mo 02/03/2015 Appointment: Belia Reid WPtel: [address] [place] [address] 02/02lm ~sl...02/03/15 appt confirmed cn ACUTE I LLNESS 02/03/2015 Patient Education: Patient Medication Summary Completed 02/03/2015 Visit Plan: Warm soaks to vaginal area K elex and Diflucan and observe Zofran to use prn 12/29/2014 Appointment: Belia Reid WPtel: [address] [place] [address] 12/28 Confirmed ~sl ACUTE ILLNESS 12/29/2014 Patient Education: Patient Medication Summary Completed 12/29/2014 Appointment: Huong Osborne WPtel: [address] [place] [address] FOLLOW UP 09/24/2014 Appointment: Belia Reid WPtel: [address] [place] [address] 09/15 confirmed -mf FOLLOW UP 09/16/2014 Visit Plan: Increase requip to 2mg po BI D Increase lyrica to 225mg total a day by adding an extra 75mg in AM Recheck in 2weeks Continue to patch left eye while sleeping 09/02/2014 Appointment: Belia Reid WPtel: [address] [place] [address] 09/01 appt confirmed cn Hospital Follow Up 09/02 Patient Education: Patient Medication Summary Completed 09/02/2014 Visit Plan: To [facility] for observat ion to R/O CVA 08/25/2014 Appointment: Huong Osborne WPtel: [address] [place] [address] ACUTE ILLNESS 08/25/2014 Patient Education: Patient Medication Summary Completed 08/25/2014 Referral: Aaron Jonas WPtel: [facility] [address] [facility] 1 [id number] [place] In [place] location Initiated 04/26/2014 Referral: Brian Srinivasan WPtel: [address] [id number] [place] Referral Initiated 04/20/2014 Appointment: Belia Reid WPtel: [address] [place], [place] [phone] ER Follow UP 04/01/2014 Patient Education: Patient Medication Summary Completed 04/01/2014 Care Plan: MYELOGRAPHY NECK SPINE LOINC : 67688-4 Ordered 04/01/2014 Visit Plan: Continue Symbicort 160 at 2p BID Continue SVNs with duoneb at least QID Finish Levaquin Recheck 1mo on lyrica 03/16/2014 Appointment: Belia Reid WPtel: [address] [place], [place] [phone] 03/15 voicemail FOLLOW UP 03/16/2014 Patient Education: Patient Medication Summary Completed 03/16/2014 Visit Plan: Restart SVNs with duoneb QID Repeat prednisone Levaquin Continue symbicort Keep lyrica at same dose Recheck 1week 03/09/2014 Appointment: Belia Reid WPtel: [address] [place], [place] [phone] FOLLOW UP 03/09/2014 Patient Education: Patient Medication Summary Completed 03/09/2014 Appointment: Belia Reid WPtel: [address] [place], [place] [phone] 03/03 showed up 15 minutes late for appt -- put her on Huong's side for 10:45am FORGIVEN PER DR FOLLOW UP 03/03/2014 Appointment: Huong Osborne WPtel: [address] [place], [place] [phone] [place] FOLLOW UP 03/03/2014 Patient Education: Patient Medication Summary Completed 03/03/2014 Appointment: Huong Osborne WPtel: [address] [place], [place] [phone] ER Follow UP 03/01/2014 Patient Education: Patient Medication Summary Completed 03/01/2014 Visit Plan: Add carafate for this next m onth Increase lyrica to 150mg q HS 02/09/2014 Appointment: Belia Reid WPtel: [address] [place], [place] [phone] Hospital Follow Up 02/09/2014 Patient Education: Patient Medication Summary Completed 02/09/2014 Visit Plan: Increase omeprazole back to 40mg po BID Use requip in AM and add lyrica 75mg q HS Recheck 1mo 12/23/2013 Appointment: Belia Reid WPtel: [address] [place], [place] [phone] FOLLOW UP 12/23/2013 Patient Education: Patient Medication Summary Completed 12/23/2013 Patient Education: Patient Medication Summary Completed 12/04/2013 Appointment: Belia Reid WPtel: [address] [place], [place] [phone] [place] [address] 10/30/2013 Patient Education: Patient Medication Summary Completed 10/30/2013 Appointment: Belia Reid WPtel: [address] [place], [place] [phone] [facility] 10/21/2013 Patient Education: Patient Medication Summary Completed 10/21/2013 Visit Plan: Cryotherapy as above TAC and hydroxyzine to use prn to itching spots and itching SKs Add Advair HFA 115/21 1 p BID 10/05/2013 Appointment: Belia Reid WPtel: [address] [place], [place] [phone] 10/01 pt called and confirmed ACUTE ILLNESS Patient Education: Patient Medication Summary Completed 10/05/2013 Appointment: Belia Reid WPtel: [address] [place], [place] [phone] will pay copay and part of past balance FOLLOW U P 08/04/2013 Patient Education: Patient Medication Summary Completed 08/04/2013 Appointment: Belia Reid WPtel: [address] [place], [place] [phone] [place] INJECTION 07/13/2013 Patient Education: Patient Medication Summary Completed 07/13/2013 Appointment: Huong Osborne WPtel: [address] [place], [place] [phone] ACUTE ILLNESS 07/03/2013 Patient Education: Patient Medication Summary Completed 07/03/2013 Visit Plan: Cipro and culture urine 05/27/2013 Appointment: Huong Osborne WPtel: [address] [place], [place] [phone] 05/26 confirmed appt and 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 FOLLOW UP 05/27/2013 Patient Education: Patient Medication Summary Completed 05/27/2013 Appointment: Belia Reid WPtel: [address] [place], [place] [phone] [place] UA 05/25/2013 Patient Education: Patient Medication Summary Completed 05/25/2013 Appointment: Belia Reid WPtel: [address] [place], [place] [phone] [place] INJECTION 05/04/2013 Patient Education: Patient Medication Summary Completed 05/04/2013 Appointment: Belia Reid WPtel: [address] [place], [place] [phone] [place] INJECTION 04/17/2013 Patient Education: Patient Medication Summary Completed 04/17/2013 Appointment: Belia Reid WPtel: [address] [place], [place] [phone] [place] INJECTION 04/15/2013 Appointment: Belia Reid WPtel: [address] [place], [place] [phone] [place] 04/02 vm FOLLOW UP 04/06/2013 Patient Education: Patient Medication Summary Completed 04/06/2013 Visit Plan: Obtain lab results including UA from [facility] 11/10/2012 Appointment: Belia Reidtel: [address] [place] [address] ER Follow UP 11/10/2012 Patient Education: Patient Medication Summary Completed 11/10/2012 Appointment: Belia Reid WPtel: [address] [place] [address] 10/30/12 patient canceled appt due to fin ances. Offered to work something out, patient declined-LB FOLLOW UP 11/05/2012 Visit Plan: Continue Bystolic at current dose Pt has fwup with Neurology on September 16 09/02/2012 Appointment: Belia Reid WPtel: [address] [place] [address] FOLLOW UP 09/02/2012 Patient Education: Patient Medication Summary Completed 09/02/2012 Visit Plan: Continue bystolic at 5mg chris ly Sees Neurology tomorrow Use oxygen at bedtime 08/04/2012 Appointment: Belia Reid WPtel: [address] [place] [address] FOLLOW UP 08/04/2012 Patient Education: Patient Medication Summary Completed 08/04/2012 Appointment: Belia Reidtel: [address] [place] [address] Hospital fwup for 07/21/12. merged appointments FOLLOW UP 07/24/2012 Visit Plan: Start Bystolic 5mg daily for tachycardia Fwup with neurology for further workup Overnight O2 sat 07/21/2012 Appointment: Belia Reid WPtel: [address] [place] [address] Hospital Follow Up 07/21/2012 Patient Education: Patient Medication Summary Completed 07/21/2012 Visit Plan: SVN with Albuterol QID Add A velox 400mg daily Notify if worsens or persists 07/02/2012 Appointment: Belia Reid WPtel: [address] [place], [place] [phone] ACUTE ILLNESS 07/02/2012 Patient Education: Patient Medication Summary Completed 07/02/2012 Appointment: Belia Reidtel: [address] [place], [place] [phone] [place] INJECTION 06/25/2012 Patient Education: Patient Medication Summary Completed 06/25/2012 Appointment: Belia Reid WPtel: [address] [place] [address] FOLLOW UP 06/24/2012 Patient Education: Patient Medication Summary Completed 06/24/2012 Appointment: Belia Reid WPtel: [address] [place] [address] 05/19 [facility] FOLLOW UP 05/20/2012 Patient Education: Patient [...] TID 05/08/2012 Appointment: Belia Reid WPtel: [address] [place] [address] ACUTE ILLNESS 05/08/2012 Patient Education: Patient Medication Summary Completed 05/08/2012 Visit Plan: Continue current meds Contin ue lower dose on pain meds and Diazepam Still waiting on paperwork for botox for Migraines Will restart Neurontin at 600mg po q HS Pt going to stop Depakote due to can't afford 04/22/2012 Appointment: Belia Reidtel: [address] [place] [address] 04/21 Hospital Follow Up 04/22/2012 Patient Education: Patient Medication Summary Completed 04/22/2012 Visit Plan: Injection to shoulder as abo ve Continue current meds Has appointment with neurology on HAs in 02/13/2012 Appointment: Belia Reid WPtel: [address] [place], [place] [id number] Pt does not have $10 copay at [facility] t time - will bring it in next week. Kianna iqbal'ed this. - [place] FOLLOW UP 02/13/2012 Patient Education: Patient Medication Summary Completed 02/13/2012 Visit Plan: Proceed with headache specia list Change nexium to Protonix Phenergan to use prn Sumatriptan to use prn Pt still on Inderal 01/28/2012 Appointment: Belia Reid WPtel: [address] [place], [place] [id number] ER Follow UP 01/28/2012 Patient [...] sleep 12/26/2011 Appointment: Belia Reid WPtel: [address] [place] [address] 12/24- appt. confirmed FOLLOW UP 2 Patient Education: Patient Medication Summary Completed 12/26/2011 Appointment: Belia Reid WPtel: [address] [place], [place] [phone] [place] FOLLOW UP 11/14/2011 Patient Education: Patient Medication Summary Completed 11/14/2011 Appointment: Belia Reid WPtel: [address] [place], [place] [phone] [place] FOLLOW UP 09/12/2011 Patient Education: Patient Medication Summary Completed 09/12/2011 Visit Plan: Supportive care Decrease Liseth catalino to 50mg q HS Decrease AM dose of Valium to 5mg q HS Use Endocet sparingly 08/15/2011 Appointment: Belia Reid WPtel: [address] [place], [place] [phone] ER Follow UP 08/15/2011 Patient Education: Patient Medication Summary Completed 08/15/2011 Appointment: Belia Reid WPtel: [address] [place], [place] [phone] [place] Spoke directly to patient yesterday and confirmed the appoin tment. cn ACUTE ILLNESS 08/09/2011 Patient Education: Patient Medication Summary Completed 08/09/2011 Appointment: Belia Reid WPtel: [address] [place], [place] [phone] Hospital Follow Up 07/03/2011 Patient Education: Patient Medication Summary Completed 07/03/2011 Appointment: Belia Reid WPtel: [address] [place], [place] [phone] [place] FOLLOW UP 06/04/2011 Patient Education: Patient Medication Summary Completed 06/04/2011 Visit Plan: Pt. wants "allergy shot" but in fact wants steroid shot. Will take a break from "generic Zyrtec they are getting from [facility]" and try Singulair for 2 weeks. 05/03/2011 Appointment: Iraida Jones WPtel: [address] [place] [address] ACUTE ILLNESS 05/03/2011 Patient Education: Patient Medication Summary Completed 05/03/2011 Visit Plan: Neurontin 400mg q HS for 1we ek then 800mg q HS Decrease requip to 1mg q HS for 2wks then stop Fwup 2mos 04/05/2011 Appointment: Belia Reid WPtel: [address] [place], [place] [phone] [place] FOLLOW UP 04/05/2011 Patient Education: Patient Medication Summary Completed 04/05/2011 Visit Plan: Trial of neurontin in 2wks C ontinue current meds for stomach Pt has procedure with Dr. Ortiz next week for stone removal 03/08/2011 Appointment: Belia Reid WPtel: [address] Follow Up 03/08/2011 Patient Education: Patient Medication Summary Completed 03/08/2011 Appointment: Belia Reid WPtel: [address] [place] [address] FOLLOW UP 02/19/2011 Visit Plan: reports increased [...] with Flagyl 01/24/2011 Appointment: Iraida Jones WPtel: [address] [place] [address] ACUTE ILLNESS 01/24/2011 Patient Education: Patient Medication Summary Completed 01/24/2011 Appointment: Belia Reid WPtel: [address] [place] [address] FOLLOW UP 01/02/2011 Patient Education: Patient Medication Summary Completed 01/02/2011 Appointment: Belia Reid WPtel: [address] [place] [address] FOLLOW UP 12/12/2010 Appointment: Belia Reid WPtel: [address] [place] [address] ACUTE ILLNESS 12/07/2010 Patient Education: Patient Medication Summary Completed 12/07/2010 Visit Plan: Increase Buspar to 10mg po B ID 11/16/2010 Appointment: Belia Reid WPtel: [address] [place] [address] FOLLOW UP 11/16/2010 Patient Education: Patient Medication Summary Completed 11/16/2010 Appointment: Iraida Jones WPtel: [address] [place] [address] Follow UP 11/02/2010 Patient Education: Patient Medication Summary Completed 11/02/2010 Visit Plan: Depo-Medrol/Kenalog given fo r allergies Add BuSpar for anxiety Oxycodone one p.o. q.i.d. for number 120 refilled 10/18/2010 Appointment: Belia Reidtel: [address] [place] [address] FOLLOW UP 10/18/2010 Patient Education: Patient Medication Summary Completed 10/18/2010 Visit Plan: Continue current meds Discus sed epidurals for back vs PT--will proceed with epidurals to thoracolumbar region to see if helps with pain 09/19/2010 Appointment: Belia Reidtel: [address] [place] [address] FOLLOW UP 09/19/2010 Patient Education: Patient Medication Summary Completed 09/19/2010 Visit Plan: DC MS contin Check CT scan t horacic spine Fwup pending above results 09/06/2010 Appointment: Belia Reidtel: [address] [place] [address] FOLLOW UP 09/06/2010 Patient Education: Patient Medication Summary Completed 09/06/2010 Visit Plan: Continue current meds Restar t MS contin 15mg po BID and use oxycodone prn Use daily senokot-s 2 po BID 08/10/2010 Appointment: Belia Reidtel: [address] [place] [address] [place] FOLLOW UP 08/10/2010 Patient Education: Patient Medication Summary Completed 08/10/2010 Visit Plan: Depomedrol/Kenalog given Pt sees ENT later this month Cont current meds Mammo scheduled 05/11/2010 Appointment: Belia Reidtel: [address] [place] [address] [place] FOLLOW UP 05/11/2010 Patient Education: Patient Medication Summary Completed 05/11/2010 Appointment: Belia Reidtel: [address] [place] [address] [place] UA 05/04/2010 Patient Education: Patient Medication Summary Completed 05/04/2010 Visit Plan: Pt sent to lab for UA 04/28/2010 Appointment: Belia Reidtel: [address] [place], [place] [phone] [facility] 04/28/2010 Patient Education: Patient Medication Summary Completed 04/28/2010 Visit Plan: Check CT angiogram of chest Restart Advair Use proair prn Cont current meds Fwup with Card as schedulec 04/06/2010 Appointment: Belia Reid WPtel: [address] [place] [address] Hospital Follow Up 04/06/2010 Patient Education: Patient Medication Summary Completed 04/06/2010 Visit Plan: Paperwork filled out for pow erchair Depomedrol/kenalog given Pt sees ENT in 2wks to assess nasal obstruction problems 02/09/2010 Appointment: Belia Reid WPtel: [address] [place], [place] [phone] ESTABLISHED PATIENT 02/09/2010 Patient Education: Patient Medication Summary Completed 02/09/2010 Visit Plan: Change Elavil to Trazadone 1 50mg q HS Diflucan and nystatin for tinea cruris 01/05/2010 Appointment: Belia Reid WPtel: [address] [place], [place] [phone] FOLLOW UP 01/05/2010 Patient Education: Patient Medication Summary Completed 01/05/2010 Appointment: Belia Reid WPtel: [address] [place], [place] [phone] FOLLOW UP 12/07/2009 Patient Education: Patient Medication Summary Completed 12/07/2009 Appointment: Belia Reid WPtel: [address] [place], [place] [phone] FOLLOW UP 11/22/2009 Visit Plan: Cont current meds and await MRI results from Dr. Meadows's office and his final recommendations Will need to follow-up at later date on deviated septum 11/08/2009 Appointment: Belia Reid WPtel: [address] [place] [address] FOLLOW UP 11/08/2009 Patient Education: Patient Medication Summary Completed 11/08/2009 Visit Plan: Cont PT/OT See Neurosurgery Cont Tortoise shell brace 10/24/2009 Appointment: Belia Reid WPtel: [address] [place] [address] FOLLOW UP 10/24/2009 Patient Education: Patient Medication Summary Completed 10/24/2009 Appointment: Belia Reid WPtel: [address] [place] [address] Follow Up 10/17/2009 Appointment: Belia Reid WPtel: [address] [place] [address] ACUTE ILLNESS 07/25/2009 Patient Education: Patient Medication Summary Completed 07/25/2009 Appointment: Belia Reid WPtel: [address] [place] [address] FOLLOW UP 05/26/2009 Patient Education: Patient Medication Summary Completed 05/26/2009 Referral: Chino Balderas WPtel: [facility]66[facility] Referral Initiated Referral: Merry Vale WPtel: [facility] [id number] Vale will review referral and book appointment Completed Referral: Francisco Javier Yoder WPtel: [address] [id number] Patient needs EGD insurance will not inc rease a medication unless this procedure results show a need Completed Referral: Francisco Javier Yoder WPtel: [address] [place] [address] [place] Referral Historical Reference Referral: Francisco Javier [...] last date of carotid doppler from her back tender and update if needed . Long discussion [...] from "generic Zyrtec they are getting from [facility]" and try Singulair for 2 weeks. . [...]
--- OUTSIDE RECORDS SUMMARY | 2019-09-04 09:33 | XMS REPORT | CCD ---
Author Author Diana Reid D.O. Organization [facility] Address [address] [place] [address] Phone Care Team Providers Care [employer] Name Role Phone Belia Reid D.O., PP Unavailable CCM Unavailable Summary Purpose Interface Exchange Insurance Providers Payer name Policy type / Coverage type Covered republican ID Effective Begin Date Effective End Date [employer] MEDICARE Medicare Part B [id number] 2019 Unknown Family History Family History data not found Social History Social History Element Codes Description Effective Dates Tobacco history SNOMED CT: 315564730 Nonsmoker 09/13/2010 Allergies, Adverse Reactions, Alerts Substance Reaction Codes Entered Date Inactivated Date Status Eggs reaction 18680735 09/15/2015 No Inactive Date Active _ Unknown [...] Fill Instructions baclofen 10 mg tablet RxNorm: 233493 1 Tablet(s) Oral QD for pa in/spasm 08/25/2019 09/24/2019 Active meloxicam 15 mg tablet RxNorm: 414582 1 Tablet(s) Oral QD for pain 08/25/2019 09/24/2019 Active Insulin Syringe 1 mL 29 gauge x 1/2" RxNorm: 2 s yringes daily with insulin Dx: E11.65 08/12/2019 No Stop Date Active Ativan 0.5 mg tablet RxNorm: 965382 1 Tablet(s) Oral th ree times a day for anxiety/shortness of air/stridor 07/29/2019 08/27/2019 Inactive Singulair 10 mg tablet RxNorm: 739667 1 Tablet(s) Oral QPM 07/29/19 20 01/25/2020 Active diltiazem CD 240 mg capsule,extended release 24 hr RxNorm: 8 63992 1 Capsule(s) Oral QD 07/15/2019 01/10/2020 Active metoprolol tartrate 50 mg tablet RxNorm: 634447 1 Table t(s) Oral two times a day 07/06/2019 No Stop Date Active Novolin N NPH U-100 Insulin isophane 100 unit/mL subcu taneous susp RxNorm: 785975 25 Unit(s) Subcutaneous two times a day 07/06/2019 07/06/2019 I nactive Colestid 1 gram tablet RxNorm: 3804359 1 Tablet(s) Oral two times a day for diarrhea 07/06/2019 09/04/2019 Active pramipexole 1 mg tablet RxNorm: 458947 1 Tablet(s) Oral QPM FOR RESTLESS LEGS (REPLACES REQUIP) 06/25/2019 06/19/2020 Active hydroxyzine HCl 25 mg tablet RxNorm: 247457 1 Tablet(s) Oral QPM for itching/aniety 06/25/2019 09/23/2019 Active Ativan 0.5 mg tablet RxNorm: 147663 1 Tablet(s) Oral th ree times a day for anxiety/shortness of air/stridor 06/25/2019 07/25/2019 Inactive Levaquin 500 mg tablet RxNorm: 850389 1 Tablet(s) Oral QD 06/16/2019 06/23/2019 Inactive Flagyl 500 mg tablet RxNorm: 867494 1 Tablet(s) Oral three time s a day 06/16/2019 06/23/2019 Inactive Vancocin 125 mg capsule RxNorm: 329804 1 Capsule(s) Oral four t imes a day 06/08/2019 06/18/2019 Inactive omeprazole 40 mg capsule,delayed release RxNorm: 186716 1 Capsule(s) Oral two times a day 05/26/2019 11/21/2019 Active Flagyl 500 mg tablet RxNorm: 233566 1 Tablet(s) Oral three time s a day 05/26/2019 06/05/2019 Inactive diltiazem CD 240 mg capsule,extended release 24 hr RxNorm: 8 16477 1 Capsule(s) Oral QD 05/26/2019 07/14/2019 Inactive Cipro 250 mg tablet RxNorm: 431868 1 Tablet(s) Oral two times a day 05/26/2019 06/02/2019 Inactive hydroxyzine HCl 25 mg tablet RxNorm: 140281 1 Tablet(s) Oral QPM for itching/aniety 05/21/2019 06/24/2019 Inactive metoprolol tartrate 25 mg tablet RxNorm: 905452 1 Table t(s) Oral two times a day 05/21/2019 07/05/2019 Inactive hydroxyzine HCl 25 mg tablet RxNorm: 119193 1 Tablet(s) Oral QPM for itching/aniety 05/13/2019 05/20/2019 Inactive Singulair 10 mg tablet RxNorm: 246244 1 Tablet(s) Oral QPM 05/06/1905/12/2019 Inactive gabapentin 600 mg tablet RxNorm: 324678 1 Tablet(s) Oral QD 020 06/05/2019 Inactive Valium 5 mg tablet RxNorm: 216957 1 Tablet(s) Oral QPM for stri joao/muscle spasm 04/29/2019 06/24/2019 Inactive baclofen 10 mg tablet RxNorm: 687272 1 Tablet(s) Oral QPM for s pasm/neck pain 04/24/2019 05/23/2019 Inactive baclofen 10 mg tablet RxNorm: 794490 1 Tablet(s) Oral QPM for s pasm/neck pain 04/24/2019 04/23/2019 Inactive Novolin N NPH U-100 Insulin isophane 100 unit/mL subcu taneous susp RxNorm: 641309 23 Unit(s) Subcutaneous two times a day 04/20/2019 07/05/2019 I nactive cyclobenzaprine 5 mg tablet RxNorm: 719844 1 Tablet(s) Oral three times a day as needed 04/16/2019 04/23/2019 Inactive hydroxyzine HCl 25 mg tablet RxNorm: 095424 1 Tablet(s) Oral three times a day for itching/aniety 04/08/2019 05/12/2019 Inactive gabapentin 600 mg tablet RxNorm: 058671 1 Tablet(s) Oral two ti mes a day 04/08/2019 05/05/2019 Inactive gabapentin 600 mg tablet RxNorm: 022784 1 Tablet(s) Oral two ti mes a day 04/08/2019 04/07/2019 Inactive Novolin N NPH U-100 Insulin isophane 100 unit/mL subcu taneous susp RxNorm: 729121 10 Unit(s) Subcutaneous two times a day 03/03/2019 04/19/2019 I nactive gabapentin 300 mg capsule RxNorm: 647708 1 Capsule(s) O ral every night at bedtime for neuropathy 02/26/2019 04/07/2019 Inactive gabapentin 300 mg capsule RxNorm: 439484 1 Capsule(s) O ral every night at bedtime for neuropathy 02/20/2019 02/25/2019 Inactive buspirone 5 mg tablet RxNorm: 976283 TAKE 1 TABLET THREE TIMES MILDRED Y 02/12/2019 05/12/2019 Inactive pramipexole 1 mg tablet RxNorm: 144520 1 Tablet(s) Oral QPM FOR RESTLESS LEGS (REPLACES REQUIP) 02/12/2019 06/24/2019 Inactive Lexapro 10 mg tablet RxNorm: 999429 TAKE 1 TABLET EVERY DAY FOR MOO D 01/31/2019 No Stop Date Active Ativan 0.5 mg tablet RxNorm: 757758 TAKE 1 TABLET BY MO UT THREE TIMES DAILY NEEDED FOR ANXIETY 01/26/2019 04/28/2019 Inactive Ativan 0.5 mg tablet RxNorm: 323944 TAKE 1 TABLET BY MO UT THREE TIMES DAILY NEEDED FOR ANXIETY 01/05/2019 01/05/2019 Inactive Levaquin 500 mg tablet RxNorm: 643659 1 Tablet(s) Oral QD 12/25/2018 12/24/2018 Inactive Levaquin 500 mg tablet RxNorm: 134535 1 Tablet(s) Oral QD 12/25/2018 01/04/2019 Inactive baclofen 10 mg tablet RxNorm: 553943 1 Tablet(s) Oral three maico es a day 11/20/2018 01/19/2019 Inactive Ativan 0.5 mg tablet RxNorm: 356148 TAKE 1 TABLET BY ID UT THREE TIMES DAILY NEEDED FOR ANXIETY 11/20/2018 01/04/2019 Inactive gabapentin 300 mg capsule RxNorm: 622366 1 Capsule(s) O ral every night at bedtime for neuropathy 11/20/2018 12/20/2018 Inactive Lexapro 10 mg tablet RxNorm: 007356 1 Tablet(s) PO QD for mood 07/201801/30/2019 Inactive Zithromax Z-Lj 250 mg tablet RxNorm: 467561 Tablet(s) PO take as directed 11/04/2018 11/19/2018 Inactive Insulin Syringe 1 mL 29 gauge x 1/2" RxNorm: 2 s yringes daily with insulin Dx: E11.65 10/08/2018 08/11/2019 Inactive gabapentin 300 mg capsule RxNorm: 796978 1 Capsule(s) PO QHS fo r neuropathy 09/18/2018 10/17/2018 Inactive cyclobenzaprine 5 mg tablet RxNorm: 729049 1 Tablet(s) PO TID a s needed 09/09/2018 09/08/2018 Inactive cyclobenzaprine 5 mg tablet RxNorm: 401132 1 Tablet(s) PO TID a s needed 09/09/2018 10/08/2018 Inactive prednisone 20 mg tablet RxNorm: 784740 1 Tablet(s) PO QD 09/08/2018 0 09/12/2018 Inactive Natalie Greenberg U-100 Insulin 100 unit/mL (3 mL) subcu taneous pen RxNorm: 425291 55 Unit(s) SQ QAM 08/28/2018 11/03/2018 Inactive hydroxyzine HCl 25 mg tablet RxNorm: 528359 1 Tablet(s) PO QHS for itching 08/20/2018 05/12/2019 Inactive Lexapro 10 mg tablet RxNorm: 873831 1 Tablet(s) PO QD for mood 08/0210/18/2018 Inactive sumatriptan 100 mg tablet RxNorm: 942977 1 Tablet(s) PO at headache onset. May repeat 1 in two hours if headache remains. Max of 2 per 24 hours 04/02/2018 05/20/2018 Inactive Diflucan 150 mg tablet RxNorm: 636317 1 Tablet(s) PO QD 03/18/2018 Inactive Diflucan 150 mg tablet RxNorm: 728962 1 Tablet(s) PO QD 03/18/2018 Inactive Flagyl 500 mg tablet RxNorm: 404065 1 Tablet(s) PO TID 03/17/2018 Inactive Levaquin 500 mg tablet RxNorm: 751268 1 Tablet(s) PO QD 03/17/2018 Inactive Levaquin 500 mg tablet RxNorm: 177426 1 Tablet(s) PO QD 03/17/2018 Inactive Flagyl 500 mg tablet RxNorm: 057139 1 Tablet(s) PO TID 03/17/2018 Inactive ketoconazole 200 mg tablet RxNorm: 138189 1 Tablet(s) PO QD 019 03/19/2018 Inactive Celebrex 200 mg capsule RxNorm: 536887 1 Capsule(s) PO BID 02/06/20 18 05/20/2018 Inactive tramadol 50 mg tablet RxNorm: 948427 1 Tablet(s) PO TID as needed 1 04/08/2017 05/20/2018 Inactive gabapentin 300 mg capsule RxNorm: 775590 1 Capsule(s) PO BID 201705/20/2018 Inactive Diflucan 150 mg tablet RxNorm: 241810 1 Tablet(s) PO QD 01/20/2018 Inactive pramipexole 1 mg tablet RxNorm: 362897 1 Tablet(s) PO Q PM FOR RESTLESS LEGS (REPLACES REQUIP) 01/08/2018 02/11/2019 Inactive cyclobenzaprine 10 mg tablet RxNorm: 231038 1 Tablet(s) PO TID as needed for muscle spasm 12/17/2017 05/20/2018 Inactive pramipexole 1 mg tablet RxNorm: 407190 TAKE 1 TABLET BY MOUTH ONCE DAILY IN THE EVENING FOR RESTLESS LEGS (REPLACES REQUIP) 12/04/2017 01/05/2018 Inac tive Amaryl 4 mg tablet RxNorm: 522324 1 Tablet(s) PO BID replaces 2mg 0 11/05/2017 12/16/2017 Inactive Singulair 10 mg tablet RxNorm: 351886 1 Tablet(s) PO QHS for al lergies/lungs 10/30/2017 12/16/2017 Inactive Diflucan 100 mg tablet RxNorm: 598531 1 Tablet(s) PO QD 10/23/2017 Inactive Ativan 0.5 mg tablet RxNorm: 871742 TAKE 1 TABLET BY MOUTH THRE E TIMES DAILY 08/30/2017 11/20/2018 Inactive buspirone 5 mg tablet RxNorm: 156345 1 Tablet(s) PO TID 07/11/2017 Inactive propranolol 60 mg tablet RxNorm: 530665 1 Tablet(s) PO BID repl aces 40mg dose 06/26/2017 12/16/2017 Inactive Amaryl 4 mg tablet RxNorm: 092456 1 Tablet(s) PO BID replaces 2mg 0 06/12/2017 11/05/2017 Inactive omeprazole 40 mg capsule,delayed release RxNorm: 917635 1 Capsule(s) PO BID TAKE ONE CAPSULE BY MOUTH TWICE DAILY 05/30/2017 11/25/2017 Inactive pramipexole 1 mg tablet RxNorm: 683964 1 Tablet(s) PO Q PM for restless legs--replaces requip 05/30/2017 11/25/2017 Inactive amitriptyline 50 mg tablet RxNorm: 944037 1 Tablet(s) PO QHS 201709/16/2017 Inactive Diflucan 100 mg tablet RxNorm: 300204 1 Tablet(s) PO BID 05/07/2017 0 05/20/2017 Inactive nystatin (bulk) 100 million unit powder RxNorm: Application TO P BID 05/07/2017 05/20/2018 Inactive cholestyramine (with sugar) 4 gram oral powder RxNorm: 176221 1 Unit Dose PO QD 05/07/2017 01/20/2018 Inactive Ativan 0.5 mg tablet RxNorm: 977342 TAKE ONE TABLET BY MOUTH TH REE TIMES DAILY 05/01/2017 09/02/2017 Inactive Trulicity 1.5 mg/0.5 mL subcutaneous pen injector RxNorm: 15 21160 1 Unit Dose SQ WEEKLY 02/22/2017 03/23/2017 Inactive doxycycline hyclate 100 mg capsule RxNorm: 6031223 1 Capsule(s) PO BID 01/23/2017 02/05/2017 Inactive Amaryl 4 mg tablet RxNorm: 527781 1 Tablet(s) PO BID replaces 2mg 1 03/25/2016 05/22/2017 Inactive magnesium oxide 400 mg capsule RxNorm: 116341 1 Capsule(s) PO QD 07/18/2017 Inactive Ativan 0.5 mg tablet RxNorm: 628944 TAKE ONE TABLET BY MOUTH TH REE TIMES DAILY 01/17/2017 05/01/2017 Inactive Amaryl 2 mg tablet RxNorm: 321046 1 Tablet(s) PO BID 12/27/201601/22 Inactive Amaryl 2 mg tablet RxNorm: 987206 1 Tablet(s) PO BID 12/26/201612/26 Inactive Ativan 0.5 mg tablet RxNorm: 313524 TAKE ONE TABLET BY MOUTH TH REE TIMES DAILY 12/05/2016 01/18/2017 Inactive pramipexole 1 mg tablet RxNorm: 782995 1 Tablet(s) PO Q PM for restless legs--replaces requip 11/26/2016 05/30/2017 Inactive Mobic 15 mg tablet RxNorm: 448152 1 Tablet(s) PO QD 10/08/20162016 Inactive cyclobenzaprine 5 mg tablet RxNorm: 189145 1/2- 1 Tablet(s) PO TID 10/08/2016 10/17/2016 Inactive Ativan 0.5 mg tablet RxNorm: 679302 1 Tablet(s) PO TID 09/20/201607/2016 Inactive amitriptyline 50 mg tablet RxNorm: 941930 1 Tablet(s) PO QHS 201605/30/2017 Inactive propranolol 60 mg tablet RxNorm: 389069 1 Tablet(s) PO BID repl aces 40mg dose 09/19/2016 06/26/2017 Inactive Ativan 0.5 mg tablet RxNorm: 621632 1 Tablet(s) PO TID 08/20/2016 Inactive omeprazole 40 mg capsule,delayed release RxNorm: 776029 1 Capsule(s) PO BID TAKE ONE CAPSULE BY MOUTH TWICE DAILY 08/20/2016 05/30/2017 Inactive amitriptyline 50 mg tablet RxNorm: 411215 1 Tablet(s) PO QHS 201609/18/2016 Inactive pramipexole 1 mg tablet RxNorm: 058368 1 Tablet(s) PO Q PM for restless legs--replaces requip 07/23/2016 11/25/2016 Inactive Amaryl 2 mg tablet RxNorm: 339668 1 Tablet(s) PO BID 07/23/201612/27 Inactive propranolol 40 mg tablet RxNorm: 447293 1 Tablet(s) PO BID 07/13/1909/18/2016 Inactive Ativan 0.5 mg tablet RxNorm: 162559 1 Tablet(s) PO QID 06/19/2016 Inactive Amaryl 2 mg tablet RxNorm: 449315 1 Tablet(s) PO BID 06/19/201607/22 Inactive Ativan 0.5 mg tablet RxNorm: 045229 1 Tablet(s) PO QID 06/19/2016 Inactive buspirone 5 mg tablet RxNorm: 573054 1 Tablet(s) PO TID 06/19/2016 Inactive Ativan 0.5 mg tablet RxNorm: 361599 1 Tablet(s) PO BID 05/24/2016 Inactive buspirone 5 mg tablet RxNorm: 509402 1 Tablet(s) PO TID 05/23/2016 Inactive Macrobid 100 mg capsule RxNorm: 571365 1 Capsule(s) PO QOD 05/03/19 17 10/07/2016 Inactive pramipexole 1 mg tablet RxNorm: 474877 Tablet(s) 1 Tabl et(s) PO QPM for restless legs--replaces requip 04/26/2016 06/24/2016 Inactive propranolol 40 mg tablet RxNorm: 899826 TAKE ONE TABLET BY MOUT H TWICE DAILY 04/26/2016 06/24/2016 Inactive Detrol LA 4 mg capsule,extended release RxNorm: 542617 1 Capsul e(s) PO QHS 04/03/2016 05/02/2016 Inactive prednisone 20 mg tablet RxNorm: 334153 1 Tablet(s) PO QD 02/29/2016 0 03/04/2016 Inactive Actos 30 mg tablet RxNorm: 739017 TAKE ONE TABLET BY MOUTH ONCE DAILY 02/27/2016 12/19/2016 Inactive clindamycin 300 mg capsule RxNorm: 727573 1 Capsule(s) PO TID 02/0102/08/2016 Inactive Flagyl 500 mg tablet RxNorm: 470479 1 Tablet(s) PO BID 02/02/201609/2015 Inactive omeprazole 40 mg capsule,delayed release RxNorm: 484418 TAKE ONE CAPSULE BY MOUTH TWICE DAILY 01/15/2016 07/12/2016 Inactive gabapentin 300 mg capsule RxNorm: 691339 1 Capsule(s) PO QAM an d 2 po q HS 01/05/2016 06/18/2016 Inactive gabapentin 300 mg capsule RxNorm: 719939 1 Capsule(s) P O BID 1 Capsule(s) PO QHS 12/05/2015 01/04/2016 Inactive cyclobenzaprine 10 mg tablet RxNorm: 981473 1 Tablet(s) PO TID for spasm as needed for muscle spasm 12/05/2015 06/18/2016 Inactive ciprofloxacin 250 mg tablet RxNorm: 105041 1 Tablet(s) PO BID 12/0412/14/2015 Inactive pramipexole 1 mg tablet RxNorm: 502731 Tablet(s) 1 Tabl et(s) PO QPM for restless legs--replaces requip 11/07/2015 11/26/2016 Inactive Januvia 100 mg tablet RxNorm: 300394 1 Tablet(s) PO QD 10/26/201504/2015 Inactive propranolol 40 mg tablet RxNorm: 752177 TAKE ONE TABLET BY MOUT H TWICE DAILY 10/25/2015 04/21/2016 Inactive gabapentin 300 mg capsule RxNorm: 569842 1 Capsule(s) PO QHS 201512/04/2015 Inactive Cipro 500 mg tablet RxNorm: 305390 1 Tablet(s) PO BID 10/05/201511/2015 Inactive pramipexole 1 mg tablet RxNorm: 489308 Tablet(s) 1 Tabl et(s) PO QPM for restless legs--replaces requip 10/04/2015 11/02/2015 Inactive propranolol 40 mg tablet RxNorm: 805638 TAKE ONE TABLET BY MOUT H TWICE DAILY 09/26/2015 10/24/2015 Inactive Amaryl 2 mg tablet RxNorm: 883731 1 Tablet(s) PO QD 09/15/20152016 Inactive gabapentin 300 mg capsule RxNorm: 189886 1 Capsule(s) PO QHS 201510/14/2015 Inactive buspirone 5 mg tablet RxNorm: 180090 1 Tablet(s) PO TID 09/15/2015 Inactive pramipexole 1 mg tablet RxNorm: 847181 Tablet(s) 1 Tabl et(s) PO QPM for restless legs--replaces requip 09/08/2015 10/03/2015 Inactive pramipexole 1 mg tablet RxNorm: 302189 1 Tablet(s) PO Q PM for restless legs--replaces requip 08/08/2015 09/08/2015 Inactive Amaryl 2 mg tablet RxNorm: 097025 1 Tablet(s) PO QD 07/07/20152015 Inactive pramipexole 1 mg tablet RxNorm: 599771 1 Tablet(s) PO Q PM for restless legs--replaces requip 07/05/2015 08/03/2015 Inactive ropinirole 2 mg tablet RxNorm: 588028 TAKE ONE TABLET BY MOUTH TWICE DAILY 05/09/2015 09/14/2015 Inactive Diflucan 100 mg tablet RxNorm: 026413 1 Tablet(s) PO QD 03/30/2015 Inactive propranolol 40 mg tablet RxNorm: 522604 1 Tablet(s) PO BID 02/24/20 15 08/21/2015 Inactive [SAVINGS FOR UNINSURED PATIE NTS -- BIN:062837, PCN: ASPROD1, Group: AME08, ID# [id number], Process claim through [employer], for questions: . THIS IS NOT INSURANCE.] Flagyl 500 mg tablet RxNorm: 446012 1 Tablet(s) PO BID 02/03/201502/2015 Inactive Cipro 500 mg tablet RxNorm: 867252 1 Tablet(s) PO BID 02/03/201502/01 Inactive Carafate 1 gram tablet RxNorm: 311039 1 Tablet(s) PO QID make i nto slurry 02/03/2015 09/14/2015 Inactive ondansetron HCl 4 mg tablet RxNorm: 905581 1 Tablet(s) PO Q4H as needed for nausea 12/29/2014 01/04/2016 Inactive Diflucan 100 mg tablet RxNorm: 419576 1 Tablet(s) PO QD 12/29/2014 Inactive Keflex 500 mg capsule RxNorm: 780728 1 Capsule(s) PO TID 12/29/2014 1 03/09/2014 Inactive omeprazole 40 mg capsule,delayed release RxNorm: 192939 1 Capsu le(s) PO BID 12/27/2014 12/21/2015 Inactive [SAVINGS FOR UNINSUR ED PATIENTS -- BIN:379671, PCN: ASPROD1, Group: AME08, ID# [id number], Process claim through [employer], for questions: . THIS IS NOT INSURANCE.] ropinirole 2 mg tablet RxNorm: 597476 1 Tablet(s) PO BID 09/29/2014 0 03/27/2015 Inactive [SAVINGS FOR UNINSURED PATIENTS -- BIN:0 66243, PCN: ASPROD1, Group: AME08, ID# [id number], Process claim through [employer], for questions: . THIS IS NOT INSURANCE.] buspirone 5 mg tablet RxNorm: 547592 1 Tablet(s) PO TID 09/17/2014 Inactive ropinirole 2 mg tablet RxNorm: 943782 1 Tablet(s) PO BID 09/02/2014 0 09/28/2014 Inactive [SAVINGS FOR UNINSURED PATIENTS -- BIN:0 71893, PCN: ASPROD1, Group: AME08, ID# [id number], Process claim through [employer], for questions: . THIS IS NOT INSURANCE.] Zyrtec 10 mg tablet RxNorm: 2737742 1 Tablet(s) PO QD 09/02/201412/02 Inactive propranolol 40 mg tablet RxNorm: 829967 1 Tablet(s) PO BID 07/21/19 15 02/23/2015 Inactive [SAVINGS FOR UNINSURED PATIE NTS -- BIN:385235, PCN: ASPROD1, Group: AME08, ID# [id number], Process claim through [employer], for questions: . THIS IS NOT INSURANCE.] ropinirole 2 mg tablet RxNorm: 605361 1 Tablet(s) PO QHS 05/14/2014 0 09/01/2014 Inactive [SAVINGS FOR UNINSURED PATIENTS -- BIN:0 90126, PCN: ASPROD1, Group: AME08, ID# [id number], Process claim through [employer], for questions: . THIS IS NOT INSURANCE.] cyclobenzaprine 10 mg tablet RxNorm: 980962 1 Tablet(s) PO QHS for spasm 04/06/2014 09/01/2014 Inactive ipratropium-albuterol 0.5 mg-3 mg(2.5 mg base)/3 mL ne bulization soln RxNorm: 0995866 1 Unit Dose INH Q4H 03/16/2014 No Stop Date Active [SAVINGS FOR UNINSURED PATIENTS -- BIN:140589, PCN: ASPROD1, Group: AME08, ID# [id number], Process claim through [employer], for questions: . THIS IS NOT INSURANCE.] prednisone 20 mg tablet RxNorm: 455265 1 Tablet(s) PO BID 03/09/2014 03/15/2014 Inactive [SAVINGS FOR UNINSURED PATIENTS -- BIN:0 55012, PCN: ASPROD1, Group: AME08, ID# [id number], Process claim through [employer], for questions: . THIS IS NOT INSURANCE.] ipratropium-albuterol 0.5 mg-3 mg(2.5 mg base)/3 mL ne bulization soln RxNorm: 6347603 1 Unit Dose INH Q4H 03/09/2014 03/15/2014 Inactive [SAVINGS FOR UNINSURED PATIENTS -- BIN:219195, PCN: ASPROD1, Group: AME08, ID# [id number], Process claim through [employer], for questions: . THIS IS NOT INSURANCE.] Levaquin 500 mg tablet RxNorm: 180054 1 Tablet(s) PO QD 03/09/2014 Inactive [SAVINGS FOR UNINSURED PATIENTS -- BIN:0 18368, PCN: ASPROD1, Group: AME08, ID# [id number], Process claim through [employer], for questions: . THIS IS NOT INSURANCE.] Carafate 1 gram tablet RxNorm: 453739 1 Tablet(s) PO AC & HS ma ke into slurry 02/09/2014 09/01/2014 Inactive [SAVINGS FOR UNINSUR ED PATIENTS -- BIN:052149, PCN: ASPROD1, Group: AME08, ID# [id number], Process claim through [employer], for questions: . THIS IS NOT INSURANCE.] Fioricet 50 mg-300 mg-40 mg capsule RxNorm: 3238816 1-2 Capsule(s) PO Q4H as needed for headache --max of 6 a day 02/09/2014 09/01/2014 Inactive [SAVINGS FOR UNINSURED PATIENTS -- BIN:572522, PCN: ASPROD1, Group: AME08, ID# [id number], Process claim through [employer], for questions: . THIS IS NOT INSURANCE.] propranolol 40 mg tablet RxNorm: 695430 1 Tablet(s) PO BID 12/08/19 14 06/04/2014 Inactive [SAVINGS FOR UNINSURED PATIE NTS -- BIN:825084, PCN: ASPROD1, Group: AME08, ID# [id number], Process claim through [employer], for questions: . THIS IS NOT INSURANCE.] buspirone 5 mg tablet RxNorm: 417591 1 Tablet(s) PO TID 12/02/2013 Inactive omeprazole 40 mg capsule,delayed release RxNorm: 558353 1 Capsu le(s) PO BID 11/25/2013 11/19/2014 Inactive [SAVINGS FOR UNINSUR ED PATIENTS -- BIN:137464, PCN: ASPROD1, Group: AME08, ID# [id number], Process claim through [employer], for questions: . THIS IS NOT INSURANCE.] ropinirole 2 mg tablet RxNorm: 713006 1 Tablet(s) PO QHS 11/10/2013 0 05/08/2014 Inactive [SAVINGS FOR UNINSURED PATIENTS -- BIN:0 51147, PCN: ASPROD1, Group: AME08, ID# [id number], Process claim through [employer], for questions: . THIS IS NOT INSURANCE.] Cipro 500 mg tablet RxNorm: 751752 1 Tablet(s) PO BID 10/21/201312/03 Inactive [SAVINGS FOR UNINSURED PATIENTS -- BIN:0 83160, PCN: ASPROD1, Group: AME08, ID# [id number], Process claim through [employer], for questions: . THIS IS NOT INSURANCE.] hydroxyzine HCl 25 mg tablet RxNorm: 615992 1 Tablet(s) PO Q4-6 H as needed 10/05/2013 01/04/2016 Inactive [SAVINGS FOR UNINSUR ED PATIENTS -- BIN:811395, PCN: ASPROD1, Group: AME08, ID# [id number], Process claim through [employer], for questions: . THIS IS NOT INSURANCE.] triamcinolone acetonide 0.1 % topical cream RxNorm: 8632816 Appl ication TOP BID 10/05/2013 09/01/2014 Inactive [SAVINGS FOR UNINSUR ED PATIENTS -- BIN:932226, PCN: ASPROD1, Group: AME08, ID# [id number], Process claim through [employer], for questions: . THIS IS NOT INSURANCE.] albuterol sulfate HFA 90 mcg/actuation aerosol inhaler RxNor m: 1641157 2 Puff(s) INH Q4H as needed for cough 10/01/2013 12/22/2013 Inactive [MAKSIM INGS FOR UNINSURED PATIENTS -- BIN:496783, PCN: ASPROD1, Group: AME08, ID# [id number], Process claim through [employer], for questions: . THIS IS NOT INSURANCE.] propranolol 40 mg tablet RxNorm: 857748 1 Tablet(s) PO BID 09/02/19 14 11/29/2013 Inactive [SAVINGS FOR UNINSURED PATIE NTS -- BIN:079718, PCN: ASPROD1, Group: AME08, ID# [id number], Process claim through [employer], for questions: . THIS IS NOT INSURANCE.] propranolol 40 mg tablet RxNorm: 394180 1 Tablet(s) PO BID 08/05/19 14 08/31/2013 Inactive [SAVINGS FOR UNINSURED PATIE NTS -- BIN:820093, PCN: ASPROD1, Group: AME08, ID# [id number], Process claim through [employer], for questions: . THIS IS NOT INSURANCE.] Toprol XL 50 mg tablet,extended release RxNorm: 653677 1 Tablet (s) PO QHS 07/23/2013 08/03/2013 Inactive Macrobid 100 mg capsule RxNorm: 321650 1 Capsule(s) PO BID 07/04/19 14 07/09/2013 Inactive Toprol XL 50 mg tablet,extended release RxNorm: 286937 1 Tablet (s) PO QHS 05/28/2013 06/26/2013 Inactive ciprofloxacin 500 mg tablet RxNorm: 301149 1 Tablet(s) PO BID 05/2706/02/2013 Inactive Bystolic 5 mg tablet RxNorm: 653303 1 Tablet(s) PO QD 05/27/201305/03 Inactive ropinirole 2 mg tablet RxNorm: 478161 1 Tablet(s) PO QHS 04/22/2013 0 11/09/2013 Inactive Cipro 250 mg tablet RxNorm: 590839 1 Tablet(s) PO BID 04/06/201311/2013 Inactive ropinirole 2 mg tablet RxNorm: 436567 1 Tablet(s) PO QHS 02/17/2013 0 04/21/2013 Inactive Amaryl 2 mg tablet RxNorm: 431463 1 Tablet(s) PO QAM 11/11/201211/10 Inactive Amaryl 2 mg tablet RxNorm: 862293 1 Tablet(s) PO QAM 11/11/201204/05 Inactive omeprazole 40 mg capsule,delayed release RxNorm: 862076 1 Capsu le(s) PO BID 08/14/2012 08/08/2013 Inactive Bystolic 5 mg tablet RxNorm: 486442 1 Tablet(s) PO QD 08/14/201205/03 Inactive propranolol 60 mg tablet RxNorm: 490070 Tablet(s) PO TAKE 1 TAB LET TWICE DAILY 08/01/2012 09/01/2012 Inactive Bystolic 5 mg tablet RxNorm: 064996 1 Tablet(s) PO QD 07/21/201207/02 Inactive Bystolic 5 mg tablet RxNorm: 017149 1 Tablet(s) PO QD 07/21/201207/03 Inactive Prilosec 40 mg capsule,delayed release RxNorm: 178344 1 Capsule (s) PO BID 06/24/2012 07/21/2012 Inactive buspirone 10 mg tablet RxNorm: 485871 1 Tablet(s) PO TID 05/08/2012 0 05/23/2016 Inactive Valium 10 mg tablet RxNorm: 700039 1 Tablet(s) PO BID 04/02/201207/03 Inactive Endocet 10 mg-325 mg tablet RxNorm: 7292387 1 Tablet(s) PO QID 03/0607/21/2012 Inactive as needed for severe pain Valium 10 mg tablet RxNorm: 681489 1 Tablet(s) PO BID 02/27/2012 No S top Date Active Endocet 10 mg-325 mg tablet RxNorm: 6945837 1 Tablet(s) PO QID 02/0203/27/2012 Inactive as needed for severe pain Endocet 10 mg-325 mg tablet RxNorm: 3205982 1 Tablet(s) PO QID 01/0302/26/2012 Inactive as needed for severe pain Valium 10 mg tablet RxNorm: 173172 1 Tablet(s) PO BID 01/29/2012 No S top Date Active Protonix 40 mg tablet,delayed release RxNorm: 672273 1 Tablet(s ) PO QD 01/28/2012 07/21/2012 Inactive metformin ER 500 mg tablet,extended release 24 hr RxNorm: 86 0977 1 Tablet(s) PO QD 12/26/2011 07/20/2012 Inactive Trazadone 150 mg Tablet RxNorm: 1 Tablet(s) PO QHS prn sleep 1 04/23/2012 Inactive Endocet 10 mg-325 mg tablet RxNorm: 7577541 1 Tablet(s) PO QID 12/0301/24/2012 Inactive as needed for severe pain Nexium 40 mg capsule,delayed release RxNorm: 494351 1 Capsule(s ) PO QD 12/26/2011 01/27/2012 Inactive Symbicort 160 mcg-4.5 mcg/actuation HFA Aerosol Inhaler RxNo rm: 3815334 2 Puff(s) INH BID 12/04/2011 07/21/2012 Inactive Endocet 10 mg-325 mg tablet RxNorm: 6477666 1 Tablet(s) PO QID 11/0312/25/2011 Inactive as needed for severe pain metformin ER 500 mg tablet,extended release 24 hr RxNorm: 86 0977 1 Tablet(s) PO QD 11/20/2011 12/19/2011 Inactive metformin ER 500 mg tablet,extended release 24 hr RxNorm: 86 0977 1 Tablet(s) PO QD 11/20/2011 11/19/2011 Inactive amitriptyline 100 mg tablet RxNorm: 448004 Tablet(s) PO QHS 1 a nd 1/2 tabs QHS 11/12/2011 11/13/2011 Inactive Valium 10 mg tablet RxNorm: 919890 1 Tablet(s) PO BID 11/09/2011 No S top Date Active Endocet 10 mg-325 mg tablet RxNorm: 5902727 1 Tablet(s) PO QID 10/0211/14/2011 Inactive as needed for severe pain Aricept 10 mg Tab RxNorm: 908425 1 Tablet(s) PO QD 10/05/2011 013 Inactive Valium 10 mg tablet RxNorm: 366904 1 Tablet(s) PO BID 10/05/2011 No S top Date Active Endocet 10 mg-325 mg Tab RxNorm: 4912218 1 Tablet(s) PO QID 012 10/09/2011 Inactive as needed for severe pain Aricept 10 mg Tab RxNorm: 842069 1 Tablet(s) PO QD 08/14/2011 012 Inactive Endocet 10 mg-325 mg Tab RxNorm: 5557165 1 Tablet(s) PO QID 012 08/31/2011 Inactive as needed for severe pain Valium 10 mg Tab RxNorm: 808732 1 Tablet(s) PO BID 08/02/2011 No Stop Date Active propranolol 60 mg tablet RxNorm: 637458 1 Tablet(s) PO BID 07/26/19 12 09/11/2011 Inactive amitriptyline 100 mg tablet RxNorm: 579220 Tablet(s) PO QHS 1 a nd /2 tabs QHS 06/20/2011 09/11/2011 Inactive buspirone 10 mg tablet RxNorm: 689208 1 Tablet(s) PO BID 06/18/2011 0 09/15/2011 Inactive propranolol 60 mg Tab RxNorm: 546824 1 Tablet(s) PO BID 06/18/2011 Inactive gabapentin 800 mg Tab RxNorm: 264514 1 Tablet(s) PO BID 06/18/2011 Inactive ropinirole 2 mg tablet RxNorm: 668114 1 Tablet(s) PO QHS 05/29/2011 0 08/26/2011 Inactive trimethoprim 100 mg Tab RxNorm: 272281 1 Tablet(s) PO QHS 05/29/2011 07/21/2012 Inactive Endocet 10 mg-325 mg Tab RxNorm: 5287330 1 Tablet(s) PO QID 012 2011 Inactive as needed for severe pain Valium 10 mg Tab RxNorm: 792943 1 Tablet(s) PO QHS N eed to take med as prescribed. this is a 40 day RX. No early fills. 05/17/2011 05/20/2018 Inactive propranolol 60 mg Tab RxNorm: 959915 1 Tablet(s) PO BID 04/16/2011 Inactive Neurontin 800 mg Tab RxNorm: 400732 1 Tablet(s) PO QHS 04/05/201103/2011 Inactive Endocet 10 mg-325 mg Tab RxNorm: 5932855 1 Tablet(s) PO QID 012 05/02/2011 Inactive as needed for severe pain oxycodone-acetaminophen 10 mg-325 mg tablet RxNorm: 1293461 1 Ta blet(s) PO Q4H 03/28/2011 05/19/2012 Inactive Valium 10 mg Tab RxNorm: 091660 1 Tablet(s) PO QHS 03/28/2011 012 Inactive buspirone 10 mg Tab RxNorm: 257295 1 Tablet(s) PO BID 03/27/201106/02 Inactive propranolol 60 mg Tab RxNorm: 033819 1 Tablet(s) PO BID 03/19/2011 Inactive Klor-Con M20 20 mEq Tab RxNorm: 4164948 1 Tablet(s) PO QD 03/19/2011 07/21/2012 Inactive Aricept 10 mg Tab RxNorm: 578925 1 Tablet(s) PO QD 02/27/2011 012 Inactive propranolol 60 mg Tab RxNorm: 157882 1 Tablet(s) PO BID 02/19/2011 Inactive omeprazole 40 mg capsule,delayed release RxNorm: 962744 1 Capsu le(s) PO BID 01/24/2011 05/23/2011 Inactive clindamycin 300 mg capsule RxNorm: 866313 1 Capsule(s) PO TID 01/2402/02/2011 Inactive propranolol 60 mg Tab RxNorm: 827933 1 Tablet(s) PO BID 01/22/2011 No Stop Date Active nystatin 100,000 unit/g Topical Cream RxNorm: 266034 Applicatio n TOP BID 01/15/2011 01/14/2011 Inactive to rash for 2-4 week s Diflucan 200 mg Tab RxNorm: 927688 1 Tablet(s) PO QD 01/15/201101/28 Inactive buspirone 10 mg Tab RxNorm: 305324 1 Tablet(s) PO BID 01/08/201103/05 Inactive Valium 10 mg Tab RxNorm: 328574 1 Tablet(s) PO QHS 01/05/2011 012 Inactive Diflucan 200 mg Tab RxNorm: 664250 1 Tablet(s) PO QD 01/01/201101/14 Inactive Diflucan 200 mg Tab RxNorm: 562087 1 Tablet(s) PO QD 12/18/201012/31 Inactive Valium 10 mg Tab RxNorm: 022505 1 Tablet(s) PO QHS 12/12/2010 011 Inactive Diflucan 200 mg Tab RxNorm: 692660 1 Tablet(s) PO QD 12/07/201012/18 Inactive Aricept 10 mg Tab RxNorm: 512553 1 Tablet(s) PO QD 11/20/2010 011 Inactive ropinirole 1 mg Tab RxNorm: 126147 1 Tablet(s) PO QHS 11/16/201005/03 Inactive enalapril maleate 5 mg Tab RxNorm: 883079 1 Tablet(s) PO QD 011 05/20/2018 Inactive buspirone 10 mg Tab RxNorm: 341302 1 Tablet(s) PO BID 11/16/201012/02 Inactive Valium 10 mg Tab RxNorm: 129598 1 Tablet(s) PO QHS 11/07/2010 011 Inactive Pyridium 100 mg Tab RxNorm: 5908673 1 Tablet(s) PO TID 11/02/201004/2010 Inactive Macrobid 100 mg Cap RxNorm: 8056154 1 Capsule(s) PO BID 11/02/2010 Inactive buspirone 10 mg Tab RxNorm: 512445 1 Tablet(s) PO QHS 10/18/201005/02 Inactive propranolol 60 mg Tab RxNorm: 548097 1 Tablet(s) PO BID 09/18/2010 Inactive Valium 10 mg Tab RxNorm: 496348 1 Tablet(s) PO QHS 09/05/2010 011 Inactive Aricept 10 mg Tab RxNorm: 246881 1 Tablet(s) PO QD 08/14/2010 011 Inactive Valium 10 mg Tab RxNorm: 491778 1 Tablet(s) PO QHS 06/26/2010 011 Inactive ropinirole 1 mg Tab RxNorm: 497948 1 Tablet(s) PO QHS 06/19/201010/02 Inactive omeprazole 40 mg Cap, delayed release RxNorm: 475364 1 Capsule( s) PO QD 06/07/2010 10/04/2010 Inactive Endocet 10 mg-325 mg Tab RxNorm: 5485320 1 Tablet(s) PO QID as needed for severe pain 06/07/2010 03/07/2011 Inactive Endocet 10 mg-325 mg Tab RxNorm: 3772633 1 Tablet(s) PO QID as needed for severe pain 05/04/2010 06/02/2010 Inactive Valium 10 mg Tab RxNorm: 517810 1 Tablet(s) PO QHS 05/01/2010 011 Inactive propranolol 60 mg Tab RxNorm: 057975 1 Tablet(s) PO BID 04/03/2010 Inactive Valium 10 mg Tab RxNorm: 063176 1 Tablet(s) PO QHS 03/28/2010 011 Inactive omeprazole 40 mg Cap, Delayed Release RxNorm: 991227 1 Capsule( s) PO QD 03/28/2010 06/06/2010 Inactive Endocet 10 mg-325 mg Tab RxNorm: 3073144 1 Tablet(s) PO QID prn ari n 03/27/2010 05/20/2018 Inactive Valium 10 mg Tab RxNorm: 926188 1 Tablet(s) PO QHS 02/20/2010 011 Inactive Diflucan 100 mg Tab RxNorm: 324645 1 Tablet(s) PO BID 01/23/201003/2009 Inactive Diflucan 100 mg Tab RxNorm: 223715 1 Tablet(s) PO BID 01/05/201001/02 Inactive Aricept 10 mg Tab RxNorm: 062014 1 Tablet(s) PO QD 12/01/2009 011 Inactive OxyContin 20 mg 12 hr Tab RxNorm: 1050856 1 Tablet(s) PO BID 200904/05/2010 Inactive oxycodone-acetaminophen 10 mg-325 mg Tab RxNorm: 3984282 1 Table t(s) PO Q4H 11/22/2009 11/26/2009 Inactive Phenergan 25 mg Tab RxNorm: 352381 1 Tablet(s) PO PRN MIGRAINE 11/0303/07/2011 Inactive Demerol 100 mg Tab RxNorm: 857590 1 Tablet(s) PO PRN MIGRAINE 11/2203/07/2011 Inactive Oxycodone-Acetaminophen 10 mg-325 mg Tab RxNorm: 6178651 1 Table t(s) PO Q4H 10/11/2009 10/15/2009 Inactive Percocet 10 mg-325 mg Tab RxNorm: 7284206 1 Tablet(s) PO Q4H 200910/24/2009 Inactive propranolol 60 mg Tab RxNorm: 795593 1 Tablet(s) PO BID 08/29/2009 Inactive Valium 10 mg Tab RxNorm: 443295 1 Tablet(s) PO QHS 08/16/2009 010 Inactive Keflex 500 mg Cap RxNorm: 786032 1 Capsule(s) PO BID 07/25/200907/31 Inactive Hydroxyzine 25 mg Tab RxNorm: 336461 1 Tablet(s) PO TID 07/25/2009 Inactive Prednisone 20 mg Tab RxNorm: 669052 1 Tablet(s) PO BID 07/25/2009 Inactive Demerol 100 mg Tab RxNorm: 497143 1 Tablet(s) PO PRN MIGRAINE 07/25 No Stop Date Active Ropinirole 1 mg Tab RxNorm: 704664 1 Tablet(s) PO HS 07/20/200902/14 Inactive Valium 10 mg Tab RxNorm: 178821 1 Tablet(s) PO QHS 07/18/2009 010 Inactive Endocet 10 mg-325 mg Tab RxNorm: 5342174 1 Tablet(s) PO TID 010 07/07/2009 Inactive Demerol 100 mg Tab RxNorm: 653802 1 Tablet(s) PO PRN MIGRAINE 06/08 No Stop Date Active Ropinirole 1 mg Tab RxNorm: 128013 1 Tablet(s) PO HS 05/16/200907/14 Inactive ipratropium-albuterol 0.5 mg-3 mg(2.5 mg base)/3 mL ne bulization soln RxNorm: 8719870 1 Unit Dose INH Q4H as needed No Start Date Active MagOx 400 mg (241.3 mg magnesium) tablet RxNorm: 290201 1 Table t(s) PO BID No Start Date Active Vitamin B12 1000mcg Tablet RxNorm: 1 Tablet(s) PO QD No Start Date Active Vitamin D3 5,000 unit tablet RxNorm: 185371 1 Tablet(s) PO QD No Star t Date Active Tylenol Arthritis Pain 650 mg tablet,extended release RxNorm : 6174114 1 Tablet(s) PO Q4H No Start Date Active Lotrimin AF 2 % topical powder RxNorm: 978473 1 Application TOP BID No Start Date Active enalapril maleate 5 mg Tab RxNorm: 401106 1 Tablet(s) PO QD No Star t Date 07/20/2012 Inactive Demerol 100 mg Tab RxNorm: 622852 Tablet(s) PO PRN MIGRAINE No Star t Date 06/02/2009 Inactive metformin 500 mg tablet RxNorm: 354024 1 Tablet(s) PO QD No Start D ate 04/05/2013 Inactive Breo Ellipta 100 mcg-25 mcg/dose powder for inhalation RxNor m: 7708734 1 Puff(s) INH BID No Start Date 01/04/2016 Inactive Mag-Oxide 400 mg Tab RxNorm: 061579 1 Tablet(s) PO QD No Start Date 0 07/21/2012 Inactive Cipro 500 mg Tab RxNorm: 464176 1 Tablet(s) PO QD No Start Date 04/05 Inactive Ativan 0.5 mg tablet RxNorm: 975985 1 Tablet(s) PO TID as needed No Start Date 05/06/2019 Inactive melatonin 3 mg tablet RxNorm: 605201 2 Tablet(s) PO QHS No Start Da te 08/19/2018 Inactive buspirone 10 mg Tab RxNorm: 525340 1 Tablet(s) PO QD No Start Date Inactive sucralfate 100 mg/mL Oral Susp RxNorm: 618558 2 Teaspoon(s) PO QID No Start Date 07/21/2012 Inactive hydrocodone 5 mg-acetaminophen 325 mg tablet RxNorm: 426314 1 Tablet(s) PO Q4H as needed No Start Date 08/19/2018 Inactive Amaryl 2 mg tablet RxNorm: 767886 1 Tablet(s) PO BID No Start Date Inactive OxyContin 20 mg 12 hr Tab RxNorm: 8993171 1 Tablet(s) PO BID No Sta rt Date 11/27/2009 Inactive propranolol 40 mg tablet RxNorm: 997666 1 Tablet(s) PO QID No Start Date 01/19/2018 Inactive Trazadone 150 mg Tablet RxNorm: 1-2 Tablet(s) PO QHS prn sleep No Start Date 08/09/2010 Inactive propranolol 60 mg Tab RxNorm: 990578 1/2 Tablet(s) PO BID No Start Date 01/21/2011 Inactive insulin NPH and regular human subcutaneous RxNorm: 4586862 subcu taneous No Start Date 11/20/2018 Inactive Ativan 0.5 mg tablet RxNorm: 239973 1 Tablet(s) PO QID No Start Date 06/18/2016 Inactive Vasotec 5 mg Tab RxNorm: 931743 1 Tablet(s) PO BID No Start Date 06/2011 Inactive Toprol XL 50 mg tablet,extended release RxNorm: 648451 1 Tablet (s) PO BID No Start Date 04/05/2013 Inactive Ativan 0.5 mg tablet RxNorm: 956551 1 Tablet(s) PO TID No Start Date 05/25/2016 Inactive Klor-Con M20 20 mEq Tab RxNorm: 8224562 1 Tablet(s) PO QD No Start Date 03/19/2011 Inactive sumatriptan 100 mg tablet RxNorm: 105733 1 Tablet(s) PO at headache onset--repeat in 2hrs if remains No Start Date 07/21/2012 Inactive propranolol 60 mg Tab RxNorm: 346789 1 Tablet(s) PO BID No Start Da te 08/28/2009 Inactive Cholestyramine Light 4 gram Oral Powder RxNorm: 9111917 1 Unit Dose PO QD in water No Start Date 07/21/2012 Inactive nystatin 100,000 unit/g Topical Powder RxNorm: 713423 Applicati on TOP BID No Start Date 07/21/2012 Inactive vitamin H18-pnccf acid sublingual RxNorm: sublingual No Start Date 07/05/2013 Inactive cyclobenzaprine 5 mg tablet RxNorm: 793286 1/2-1 Tablet (s) PO TID as needed for muscle spasm No Start Date 07/18/2017 Inactive tramadol 50 mg tablet RxNorm: 985539 2 Tablet(s) PO TID as need ed for pain No Start Date 09/01/2014 Inactive aspirin 81 mg Tab RxNorm: 840065 1 Tablet(s) PO QOD No Start Date 04/2013 Inactive Vitamin B12 1000mcg Tablet RxNorm: 1 Tablet(s) PO QD No Start Date 07/18/2017 Inactive cholestyramine (with sugar) 4 gram oral powder RxNorm: 96080 3 1 Unit(s) PO QD as needed No Start Date 05/20/2018 Inactive ProAir HFA 90 mcg/Actuation Aerosol Inhaler RxNorm: 266001 2 Puff(s) INH Q4H prn shortness of breath No Start Date 07/21/2012 Inactive pravastatin 10 mg Tab RxNorm: 593927 1 Tablet(s) PO QD No Start Date 07/21/2012 Inactive gabapentin 800 mg Tab RxNorm: 688574 1 Tablet(s) PO BID No Start Da te 06/03/2011 Inactive Endocet 10 mg-325 mg Tab RxNorm: 9083336 1 Tablet(s) PO TID No Star t Date 06/02/2009 Inactive Naproxen 500 mg Tab RxNorm: 697403 1 Tablet(s) PO BID No Start Date 0 04/05/2010 Inactive Valium 10 mg Tab RxNorm: 611324 1 Tablet(s) PO BID No Start Date 07/04 Inactive enalapril maleate 5 mg Tab RxNorm: 020548 1 Tablet(s) PO QD No Star t Date 11/15/2010 Inactive doxepin 10 mg capsule RxNorm: 4883958 2 Capsule(s) PO QHS No Start Date 09/17/2018 Inactive MS Contin 15 mg Tab RxNorm: 011937 1 Tablet(s) PO BID No Start Date 0 09/18/2010 Inactive buspirone 5 mg tablet RxNorm: 024109 1 Tablet(s) PO TID No Start Da te 12/01/2013 Inactive Elizabeth 3 Fish Oil Cap RxNorm: 1 Capsule(s) PO QD No Start Date 07/03 Inactive enalapril maleate 5 mg Tab RxNorm: 249082 1/2 Tablet(s) PO QD No St art Date 03/07/2011 Inactive Lyrica 75 mg capsule RxNorm: 313867 1 Capsule(s) PO QHS No Start Da te 02/08/2014 Inactive Lopressor 100 mg tablet RxNorm: 712767 1 Tablet(s) PO BID No Start Date 06/08/2018 Inactive Lantus Solostar U-100 Insulin 100 unit/mL (3 mL) subcu taneous pen RxNorm: 929249 45 Unit(s) SQ QAM No Start Date 05/20/2018 Inactive aspirin 81 mg tablet RxNorm: 440495 1 Tablet(s) PO QD No Start Date 0 09/14/2015 Inactive diltiazem CD 240 mg capsule,extended release 24 hr RxNorm: 8 55088 1 Capsule(s) PO QD No Start Date 05/25/2019 Inactive insulin NPH isophane U-100 human subcutaneous RxNorm: 536153 beckwith bcutaneous No Start Date 04/20/2019 Inactive sumatriptan 100 mg tablet RxNorm: 590302 1 Tablet(s) PO at headache onset. May repeat 1 in two hours if headache remains. Max of 2 per 24 hours No Start Date 04/01/2018 Inactive gabapentin 300 mg capsule RxNorm: 452370 1 Capsule(s) PO QHS No Sta rt Date 02/04/2018 Inactive Topamax 25 mg Tab RxNorm: 692832 Oral No Start Date 03/07/2011 In active Senokot-S 8.6 mg-50 mg Tab RxNorm: 8086970 1 Tablet(s) PO QD No Sta rt Date 03/07/2011 Inactive metformin ER 500 mg 24 hr tablet,extended release RxNorm: 18 98259 1 Tablet(s) PO QD No Start Date 05/20/2018 Inactive Symbicort 80 mcg-4.5 mcg/actuation HFA Aerosol Inhaler RxNor m: 2552649 2 Puff(s) INH BID No Start Date 04/05/2013 Inactive metoprolol tartrate 25 mg tablet RxNorm: 653711 1 Tablet(s) PO BID No Start Date 05/20/2019 Inactive propranolol 60 mg Tab RxNorm: 183865 1/2 Tablet(s) PO BID No Start Date 07/21/2012 Inactive metformin ER 500 mg 24 hr tablet,extended release RxNorm: 18 99638 2 Tablet(s) PO QD No Start Date 12/16/2017 Inactive Insulin Syringe 1 mL 29 gauge x 1/2" RxNorm: 2 s yringes daily with insulin Dx: E11.65 No Start Date 10/07/2018 Inactive Amitriptyline 75 mg Tab RxNorm: 762603 1 Tablet(s) PO QHS No Start Date 10/23/2009 Inactive donepezil 10 mg Tab RxNorm: 949965 1 Tablet(s) PO QD No Start Date Inactive Lantus Solostar U-100 Insulin 100 unit/mL (3 mL) subcu taneous pen RxNorm: 845678 36 Unit(s) SQ QAM No Start Date 12/24/2017 Inactive Miacalcin 200 unit/Actuation Nasal [place] Aerosol RxNorm: 261 204 1 [place] NASAL QD Alternate nostrils each day No Start Date 04/05/2010 Inactive Amitriptyline 150 mg Tab RxNorm: 856908 1 Tablet(s) PO QHS No Start Date 01/04/2010 Inactive Bystolic 5 mg tablet RxNorm: 034543 1 Tablet(s) PO QD No Start Date 0 08/13/2012 Inactive Aricept 10 mg Tab RxNorm: 961495 1 Tablet(s) PO QD No Start Date 11/03 Inactive Lantus Solostar U-100 Insulin 100 unit/mL (3 mL) subcu taneous pen RxNorm: 924155 50 Unit(s) SQ QAM No Start Date 08/27/2018 Inactive albuterol sulfate 2.5 mg/3 mL (0.083 %) Neb Solution RxNorm: 145342 1 Unit Dose INH QID as needed No Start Date 08/23/2015 Inactive Symbicort 160 mcg-4.5 mcg/actuation HFA Aerosol Inhaler RxNo rm: 0059744 2 Puff(s) INH BID No Start Date 12/03/2011 Inactive Savella 50 mg Tab RxNorm: 811905 1 Tablet(s) PO BID No Start Date 04/2010 Inactive amitriptyline 100 mg Tab RxNorm: 709767 1 1/2 Tablet(s) PO QHS No S tart Date 06/19/2011 Inactive nystatin 100,000 unit/g Topical Cream RxNorm: 825544 Ap plication TOP BID to rash for 2-4 weeks No Start Date 01/14/2011 Inactive Trelegy Ellipta 100 mcg-62.5 mcg-25 mcg powder for inhalatio n RxNorm: 3899774 1 Puff(s) INH QD No Start Date 12/16/2017 Inactive Lyrica 150 mg capsule RxNorm: 215126 1 Capsule(s) PO QHS No Start D ate 12/04/2015 Inactive sennosides 8.6 mg tablet RxNorm: 074756 1 Tablet(s) PO BID No Start Date 09/07/2018 Inactive metformin ER 500 mg tablet,extended release 24 hr RxNorm: 86 0975 1 Tablet(s) PO QD No Start Date 10/22/2017 Inactive Fish Oil 1,000 mg Cap RxNorm: 1 Capsule(s) PO QD No Start Date 06/2011 Inactive Zyrtec 10 mg Tab RxNorm: 3986223 1 Tablet(s) PO QD No Start Date 07/03 Inactive albuterol sulfate HFA 90 mcg/actuation aerosol inhaler RxNor m: 2419431 2 Puff(s) INH Q4H as needed for cough No Start Date 09/30/2013 Inactive trazodone 150 mg tablet RxNorm: 085470 1 Tablet(s) PO QHS No Start Date 07/21/2012 Inactive Spiriva with HandiHaler 18 mcg & inhalation capsules RxNorm: 127464 1 Capsule(s) INH QD No Start Date 04/05/2013 Inactive Coreg 3.125 mg Tab RxNorm: 858944 1 Tablet(s) PO BID No Start Date Inactive Phenergan 25 mg Tab RxNorm: 837511 Tablet(s) PO PRN MIGRAINE No Sta rt Date 11/21/2009 Inactive Vitamin D 50,000 unit Cap RxNorm: 3246092 1 Capsule(s) PO QW No Sta rt Date 03/07/2011 Inactive Januvia 100 mg tablet RxNorm: 089993 1 Tablet(s) PO QD No Start Date 10/25/2015 Inactive Eliquis 5 mg tablet RxNorm: 6281149 1 Tablet(s) PO BID No Start Date 08/19/2018 Inactive Advair Diskus 500 mcg-50 mcg/Dose for Inhalation RxNorm: 415368 1 INH BID No Start Date 07/21/2012 Inactive Vitamin D3 5,000 unit tablet RxNorm: 425924 1 Tablet(s) PO QD No St art Date 07/18/2017 Inactive Amaryl 2 mg tablet RxNorm: 834144 1 Tablet(s) PO QD No Start Date 06/2015 Inactive Actos 30 mg tablet RxNorm: 390692 1 Tablet(s) PO QD No Start Date Inactive promethazine 25 mg tablet RxNorm: 719261 1 Tablet(s) PO Q4H prn N/V No Start Date 07/21/2012 Inactive ProAir HFA 90 mcg/actuation Aerosol Inhaler RxNorm: 418199 2 Puff(s) INH Q4H prn dyspnea No Start Date 07/21/2012 Inactive Dexilant 60 mg Capsule RxNorm: 332455 1 Capsule(s) PO QD No Start D ate 01/27/2012 Inactive Lantus Solostar U-100 Insulin 100 unit/mL (3 mL) subcu taneous pen RxNorm: 823335 38 Unit(s) SQ QAM No Start Date 05/20/2018 Inactive Valium 10 mg Tab RxNorm: 998306 1 Tablet(s) PO QHS AND PRN No Start Date 10/24/2009 Inactive ZOFRAN ODT 8 mg disintegrating tablet RxNorm: 059313 1 Tablet(s ) PO Q6H No Start [...] Date S ervice Location MICROALBUMIN URINE RANDOM 52545 MICRL MG/L 14.9 MG/L Unknown MICROALBUMIN URINE RANDOM 77490 XM.ALB/CRE 6.1 MG/GCR Unknown MICROALBUMIN URINE RANDOM 41696 CREAT MG/D 243 MG/DL Unknown MICROALBUMIN URINE RANDOM 26757 CRE/100 2.43 G/L 03/05 Unknown PROTEIN/CREAT URINE WITH RATIO 85512|32843 PROT R U 14 MG/D L 04/01/2014 Unknown PROTEIN/CREAT URINE WITH RATIO 43594|07924 CREAT R U 254 MG/ DL 04/01/2014 Unknown PROTEIN/CREAT URINE WITH RATIO 19267|73040 XRATIO P/C 55 MG/ G 04/01/2014 Unknown URINALYSIS 75334 PROTEIN UR NEG 04/28/2010 Unknown URINALYSIS 64548 HEMGLBN UR NEG 04/28/2010 Unknown URINALYSIS 40514 GLUCOSE UR NEG 04/28/2010 Unknown URINALYSIS 52479 KETONES UR NEG 04/28/2010 Unknown URINALYSIS 37538 PH U 5.5 04/28/2010 Unknown URINALYSIS 45730 SP GR U 1.025 04/28/2010 Unknown URINALYSIS 35021 BILRUBN UR NEG 04/28/2010 Unknown URINALYSIS 49400 LEUKO UR 2+ 04/28/2010 Unknown URINALYSIS 72567 NITRITE UR NEG 04/28/2010 Unknown MICR CUL? [id number] WBC/HPF 6-10 04/28/2010 Unknown MICR CUL? 6760011 RBC/HPF 0-5 04/28/2010 Unknown MICR CUL? 3488851 HYAL CAST 16-25 04/28/2010 Unknown MICR CUL? [id number] SP TO YOLIE? NO 04/28/2010 Unknown MICR CUL? [id number] APPEAR UR NORMAL 04/28/2010 Unknown MICR CUL? [id number] SQ EPI/LPF FEW 04/28/2010 Unknown Procedures Procedure Codes Date URINALYSIS NONAUTO W/O SCOPE CPT-4: 27056 04/16/2019 URINE CULTURE/ COLONY COUNT CPT-4: 22333 04/16/2019 CEFTRIAXONE SODIUM INJECTION CPT-4: J0696 04/16/2019 THER/PROPH/DIAG INJ SC/IM CPT-4: 06065 04/16/2019 DRAIN/INJECT JOINT/BURSA CPT-4: 01937 01/22/2019 TRIAMCINOLONE ACET INJ NOS CPT-4: J3301 01/22/2019 DEXAMETHASONE SODIUM PHOS CPT-4: J1100 01/22/2019 URINE CULTURE/ COLONY COUNT CPT-4: 48500 01/07/2019 URINALYSIS NONAUTO W/O SCOPE CPT-4: 16720 01/07/2019 CEFTRIAXONE SODIUM INJECTION CPT-4: J0696 01/07/2019 THER/PROPH/DIAG INJ SC/IM CPT-4: 52181 01/07/2019 FLU VACC PRSV FREE INC ANTIG 65 AND OLDER CPT-4: 09876 12/24/2018 FLU VACC PRSV FREE INC ANTIG 65 AND OLDER CPT-4: 19225 12/24/2018 ADMIN INFLUENZA VIRUS VAC CPT-4: G0008 12/24/2018 THER/PROPH/DIAG INJ SC/IM CPT-4: 04797 11/04/2018 KETOROLAC TROMETHAMINE INJ CPT-4: J1885 11/04/2018 PROMETHAZINE HCL INJECTION CPT-4: J2550 11/04/2018 PPPS, subseq visit CPT-4: G0439 09/18/2018 THER/PROPH/DIAG INJ SC/IM CPT-4: 43492 04/01/2018 KETOROLAC TROMETHAMINE INJ CPT-4: J1885 04/01/2018 PROMETHAZINE HCL INJECTION CPT-4: J2550 04/01/2018 URINE CULTURE/ COLONY COUNT CPT-4: 85257 03/17/2018 URINALYSIS NONAUTO W/O SCOPE CPT-4: 44955 03/17/2018 FLU VACC PRSV FREE INC ANTIG 65 AND OLDER CPT-4: 00712 12/17/2017 PNEUMOCOCCAL VACC 23 RANDALL IM CPT-4: 63850 12/17/2017 ADMIN INFLUENZA VIRUS VAC CPT-4: G0008 12/17/2017 ADMIN PNEUMOCOCCAL VACCINE CPT-4: G0009 12/17/2017 PPPS, subseq visit CPT-4: G0439 09/17/2017 THER/PROPH/DIAG INJ SC/IM CPT-4: 59925 08/26/2017 KETOROLAC TROMETHAMINE INJ CPT-4: J1885 08/26/2017 PROMETHAZINE HCL INJECTION CPT-4: J2550 08/26/2017 URINALYSIS NONAUTO W/O SCOPE CPT-4: 50374 07/19/2017 URINE CULTURE/ COLONY COUNT CPT-4: 39131 07/19/2017 CEFTRIAXONE SODIUM INJECTION CPT-4: J0696 07/19/2017 THER/PROPH/DIAG INJ SC/IM CPT-4: 77396 07/19/2017 THER/PROPH/DIAG INJ SC/IM CPT-4: 99053 07/19/2017 TRIAMCINOLONE ACET INJ NOS CPT-4: J3301 07/19/2017 PRESCRIP TRANSMIT VIA ERX SY CPT-4: G8553 05/07/2017 PRESCRIP TRANSMIT VIA ERX SY CPT-4: G8553 02/22/2017 PRESCRIP TRANSMIT VIA ERX SY CPT-4: G8553 01/23/2017 FLU VACC PRSV FREE INC ANTIG 65 AND OLDER CPT-4: 72186 12/20/2016 PNEUMOCOCCAL VACC 13 RANDALL IM CPT-4: 81109 12/20/2016 ADMIN INFLUENZA VIRUS VAC CPT-4: G0008 12/20/2016 ADMIN PNEUMOCOCCAL VACCINE CPT-4: G0009 12/20/2016 URINALYSIS NONAUTO W/O SCOPE CPT-4: 99689 10/08/2016 URINE CULTURE/ COLONY COUNT CPT-4: 49332 10/08/2016 PRESCRIP TRANSMIT VIA ERX SY CPT-4: G8553 10/08/2016 PRESCRIP TRANSMIT VIA ERX SY CPT-4: G8553 09/19/2016 PRESCRIP TRANSMIT VIA ERX SY CPT-4: G8553 08/20/2016 PRESCRIP TRANSMIT VIA ERX SY CPT-4: G8553 02/29/2016 KETOROLAC TROMETHAMINE INJ CPT-4: J1885 02/02/2016 THER/PROPH/DIAG INJ SC/IM CPT-4: 54762 02/02/2016 PROMETHAZINE HCL INJECTION CPT-4: J2550 02/02/2016 PRESCRIP TRANSMIT VIA ERX SY CPT-4: G8553 02/02/2016 FLU VACC PRSV FREE INC ANTIG 65 AND OLDER CPT-4: 90391 01/05/2016 PPPS, subseq visit CPT-4: G0439 01/05/2016 ADMIN INFLUENZA VIRUS VAC CPT-4: G0008 01/05/2016 URINE CULTURE/ COLONY COUNT CPT-4: 98832 12/05/2015 URINALYSIS NONAUTO W/O SCOPE CPT-4: 48500 12/05/2015 PRESCRIP TRANSMIT VIA ERX SY CPT-4: G8553 12/05/2015 PRESCRIP TRANSMIT VIA ERX SY CPT-4: G8553 10/26/2015 URINALYSIS NONAUTO W/O SCOPE CPT-4: 51264 10/05/2015 URINE CULTURE/ COLONY COUNT CPT-4: 04229 10/05/2015 PRESCRIP TRANSMIT VIA ERX SY CPT-4: G8553 10/05/2015 SERVICE REQUIRED FOR PMD CPT-4: G0372 09/15/2015 PRESCRIP TRANSMIT VIA ERX SY CPT-4: G8553 09/15/2015 SPECIAL REPORTS OR FORMS CPT-4: 98270 08/25/2015 PRESCRIP TRANSMIT VIA ERX SY CPT-4: G8553 07/05/2015 URINALYSIS NONAUTO W/O SCOPE CPT-4: 55068 03/30/2015 ASSAY, GLUCOSE, BLOOD QUANT CPT-4: 24860 03/30/2015 URINE CULTURE/ COLONY COUNT CPT-4: 67879 03/30/2015 PRESCRIP TRANSMIT VIA ERX SY CPT-4: G8553 03/30/2015 PRESCRIP TRANSMIT VIA ERX SY CPT-4: G8553 02/03/2015 FLU VACC PRSV FREE INC ANTIG 65 AND OLDER CPT-4: 15937 12/29/2014 ADMIN INFLUENZA VIRUS VAC CPT-4: G0008 12/29/2014 PRESCRIP TRANSMIT VIA ERX SY CPT-4: G8553 12/29/2014 PRESCRIP TRANSMIT VIA ERX SY CPT-4: G8553 09/02/2014 PROTEIN/CREAT URINE WITH RATIO CPT-4: 55851|[id number] 5 MICROALBUMIN QUANTITATIVE CPT-4: 47237 04/01/2014 PRESCRIP TRANSMIT VIA ERX SY CPT-4: G8553 03/16/2014 PRESCRIP TRANSMIT VIA ERX SY CPT-4: G8553 03/09/2014 THER/PROPH/DIAG INJ SC/IM CPT-4: 36772 03/01/2014 TRIAMCINOLONE ACET INJ NOS CPT-4: J3301 03/01/2014 PRESCRIP TRANSMIT VIA ERX SY CPT-4: G8553 02/09/2014 URINE CULTURE/ COLONY COUNT CPT-4: 12656 10/30/2013 URINALYSIS NONAUTO W/O SCOPE CPT-4: 07435 10/21/2013 URINE CULTURE/ COLONY COUNT CPT-4: 47867 10/21/2013 DESTRUCT PREMALG LESION (Cryosurgery) CPT-4: 83784 PRESCRIP TRANSMIT VIA ERX SY CPT-4: G8553 10/05/2013 URINALYSIS NONAUTO W/O SCOPE CPT-4: 90170 08/04/2013 URINE CULTURE/ COLONY COUNT CPT-4: 40386 08/04/2013 PRESCRIP TRANSMIT VIA ERX SY CPT-4: G8553 08/04/2013 THER/PROPH/DIAG INJ SC/IM CPT-4: 28090 07/13/2013 TRIAMCINOLONE ACET INJ NOS CPT-4: J3301 07/13/2013 PRESCRIP TRANSMIT VIA ERX SY CPT-4: G8553 05/27/2013 URINALYSIS NONAUTO W/O SCOPE CPT-4: 66217 05/25/2013 URINE CULTURE/ COLONY COUNT CPT-4: 44405 05/25/2013 THER/PROPH/DIAG INJ SC/IM CPT-4: 07266 05/04/2013 VITAMIN B12 INJECTION CPT-4: J3420 05/04/2013 THER/PROPH/DIAG INJ SC/IM CPT-4: 26228 04/17/2013 VITAMIN B12 INJECTION CPT-4: J3420 04/17/2013 THER/PROPH/DIAG INJ SC/IM CPT-4: 33408 04/17/2013 METHYLPREDNISOLONE 40 MG INJ CPT-4: J1030 04/17/2013 TRIAMCINOLONE ACET INJ NOS CPT-4: J3301 04/17/2013 URINALYSIS NONAUTO W/O SCOPE CPT-4: 95310 04/06/2013 URINE CULTURE/ COLONY COUNT CPT-4: 03554 04/06/2013 PRESCRIP TRANSMIT VIA ERX SY CPT-4: G8553 04/06/2013 KETOROLAC TROMETHAMINE INJ CPT-4: J1885 06/25/2012 PROMETHAZINE HCL INJECTION CPT-4: J2550 06/25/2012 THER/PROPH/DIAG INJ SC/IM CPT-4: 92198 06/25/2012 THER/PROPH/DIAG INJ SC/IM CPT-4: 19181 06/24/2012 METHYLPREDNISOLONE 40 MG INJ CPT-4: J1030 06/24/2012 TRIAMCINOLONE ACET INJ NOS CPT-4: J3301 06/24/2012 URINE CULTURE/ COLONY COUNT CPT-4: 96523 06/24/2012 THER/PROPH/DIAG INJ SC/IM CPT-4: 18019 05/20/2012 KETOROLAC TROMETHAMINE INJ CPT-4: J1885 05/20/2012 THER/PROPH/DIAG INJ SC/IM CPT-4: 74528 05/20/2012 PROMETHAZINE HCL INJECTION CPT-4: J2550 05/20/2012 DRAIN/INJECT JOINT/BURSA CPT-4: 10130 02/13/2012 METHYLPREDNISOLONE 40 MG INJ CPT-4: J1030 02/13/2012 TRIAMCINOLONE ACET INJ NOS CPT-4: J3301 02/13/2012 THER/PROPH/DIAG INJ SC/IM CPT-4: 93384 11/14/2011 METHYLPREDNISOLONE 40 MG INJ CPT-4: J1030 11/14/2011 TRIAMCINOLONE ACET INJ NOS CPT-4: J3301 11/14/2011 THER/PROPH/DIAG INJ SC/IM CPT-4: 94029 09/12/2011 KETOROLAC TROMETHAMINE INJ CPT-4: J1885 09/12/2011 THER/PROPH/DIAG INJ SC/IM CPT-4: 27098 08/09/2011 METHYLPREDNISOLONE 40 MG INJ CPT-4: J1030 08/09/2011 TRIAMCINOLONE ACET INJ NOS CPT-4: J3301 08/09/2011 URINE CULTURE/ COLONY COUNT CPT-4: 61420 07/03/2011 URINE CULTURE/ COLONY COUNT CPT-4: 36781 06/04/2011 THER/PROPH/DIAG INJ SC/IM CPT-4: 93633 05/03/2011 METHYLPREDNISOLONE 40 MG INJ CPT-4: J1030 05/03/2011 TRIAMCINOLONE ACET INJ NOS CPT-4: J3301 05/03/2011 URINALYSIS NONAUTO W/O SCOPE CPT-4: 41701 01/24/2011 URINE CULTURE/ COLONY COUNT CPT-4: 15115 01/24/2011 FLUZONE, 5ML (Medicare) CPT-4: Q2038 01/02/2011 ADMIN INFLUENZA VIRUS VAC CPT-4: G0008 01/02/2011 ASSAY, GLUCOSE, BLOOD QUANT CPT-4: 39722 12/07/2010 URINE CULTURE/ COLONY COUNT CPT-4: 64541 11/02/2010 THER/PROPH/DIAG INJ SC/IM CPT-4: 09162 10/18/2010 METHYLPREDNISOLONE 40 MG INJ CPT-4: J1030 10/18/2010 TRIAMCINOLONE ACET INJ NOS CPT-4: J3301 10/18/2010 TRIAMCINOLONE ACET INJ NOS CPT-4: J3301 05/11/2010 METHYLPREDNISOLONE 40 MG INJ CPT-4: J1030 05/11/2010 THER/PROPH/DIAG INJ SC/IM CPT-4: 73771 05/11/2010 TRIAMCINOLONE ACET INJ NOS CPT-4: J3301 02/09/2010 METHYLPREDNISOLONE 40 MG INJ CPT-4: J1030 02/09/2010 THER/PROPH/DIAG INJ SC/IM CPT-4: 49918 02/09/2010 SERVICE REQUIRED FOR PMD CPT-4: G0372 02/09/2010 FLU VACCINE 3 YRS & > IM UP 64 CPT-4: 08639 0 PNEUMOCOCCAL VACC 23 RANDALL IM CPT-4: 56085 12/07/2009 ADMIN INFLUENZA VIRUS VAC CPT-4: G0008 12/07/2009 ADMIN PNEUMOCOCCAL VACCINE CPT-4: G0009 12/07/2009 TRIAMCINOLONE ACET INJ NOS CPT-4: J3301 05/26/2009 THER/PROPH/DIAG INJ SC/IM CPT-4: 15762 05/26/2009 METHYLPREDNISOLONE 80 MG INJ CPT-4: J1040 [...] 1: 114/72 Code: 8480-6 BMI: 37.8 Code: 90245-9 Heart Rate 1: 72 bpm Height: 5'3" [...] 1: 106/68 Code: 8480-6 BMI: 35.7 Code: 06149-3 Heart Rate 1: 72 bpm Height: 5'4" Respiratory Rate: 20 bpm SpO2: 98% Tempera ture: 36.7 (C) / 98.0 (F) Weight: 208 lbs 04/16/2018 Blood Pressure 1: 132/82 Code: 8480-6 BMI: 37.9 Code: 96455-2 Heart Rate 1: 72 bpm Height: 5'4" Respiratory Rate: 20 bpm SpO2: 96% Tempera ture: 37.1 (C) / 98.8 (F) Weight: 221 lbs 04/01/2018 Blood Pressure 1: 150/90 Code: 8480-6 Heart Rate 1: 72 bpm Respiratory Rate: 22 bpm SpO2: 95% Temperature: 36.4 (C) / 97.6 (F) We ight: 216 lbs 03/06/2018 Blood Pressure 1: 126/78 Code: 8480-6 BMI: 37.4 Code: 23483-5 Heart Rate 1: 68 bpm Height: 5'4" [...] ight: 222 lbs 12/25/2017 BMI: 37.8 Code: 35816-9 Heart Rate 1: 76 bpm Height: 5 '4" Respiratory Rate: 20 bpm SpO2: 96% Temperature: 37.3 (C) / 99.2 (F) Weight: 220 lbs 12/17/2017 Blood Pressure 1: 132/78 Code: 8480-6 BMI: 37.2 Code: 74084-4 Heart Rate 1: 88 bpm Height: 5'4" Respiratory Rate: 20 bpm SpO2: 96% Tempera ture: 37.3 (C) / 99.2 (F) Weight: 217 lbs 10/30/2017 Blood Pressure 1: 114/68 Code: 8480-6 BMI: 36.4 Code: 60422-7 Heart Rate 1: 72 bpm Height: 5'4" Respiratory Rate: 22 bpm SpO2: 96% Tempera ture: 36.8 (C) / 98.2 (F) Weight: 212 lbs 10/23/2017 Blood Pressure 1: 124/78 Code: 8480-6 Heart Rate 1: 72 bpm Respiratory Rate: 24 bpm SpO2: 94% Temperature: 36.6 (C) / 97.9 (F) We ight: 212 lbs 09/17/2017 Blood Pressure 1: 128/82 Code: 8480-6 BMI: 37.4 Code: 39288-7 Heart Rate 1: 72 bpm Height: 5'4" Respiratory Rate: 20 bpm SpO2: 96% Tempera ture: 37.0 (C) / 98.6 (F) Weight: 218 lbs 07/19/2017 Blood Pressure 1: 136/84 Code: 8480-6 BMI: 36.6 Code: 73161-7 Heart Rate 1: 88 bpm Height: 5'4" Respiratory Rate: 20 bpm SpO2: 97% Tempera ture: 36.7 (C) / 98.0 (F) Weight: 213 lbs 05/29/2017 Blood Pressure 1: 136/82 Code: 8480-6 BMI: 36.7 Code: 91055-6 Heart Rate 1: 72 bpm Height: 5'4" Respiratory Rate: 20 bpm SpO2: 97% Tempera ture: 36.9 (C) / 98.4 (F) Weight: 214 lbs 05/07/2017 Blood Pressure 1: 122/80 Code: 8480-6 BMI: 37.1 Code: 73170-0 Heart Rate 1: 80 bpm Height: 5'4" Respiratory Rate: 24 bpm SpO2: 96% Tempera ture: 36.1 (C) / 97.0 (F) Weight: 216 lbs 03/18/2017 BMI: 36.7 Code: 05792-6 Heart Rate 1: 80 bpm Height: 5 '4" Respiratory Rate: 22 bpm SpO2: 95% Temperature: 36.9 (C) / 98.4 (F) Weight: 214 lbs 02/27/2017 Blood Pressure 1: 146/94 Code: 8480-6 BMI: 36.6 Code: 09157-8 Heart Rate 1: 76 bpm Height: 5'4" Respiratory Rate: 22 bpm SpO2: 97% Tempera ture: 36.6 (C) / 97.9 (F) Weight: 213 lbs 02/22/2017 Blood Pressure 1: 126/90 Code: 8480-6 BMI: 36.4 Code: 94424-4 Heart Rate 1: 84 bpm Height: 5'4" Respiratory Rate: 22 bpm SpO2: 95% Tempera ture: 36.9 (C) / 98.4 (F) Weight: 212 lbs 01/23/2017 Blood Pressure 1: 146/82 Code: 8480-6 BMI: 37.6 Code: 21096-6 Heart Rate 1: 96 bpm Height: 5'4" Respiratory Rate: 20 bpm SpO2: 96% Tempera ture: 36.9 (C) / 98.4 (F) Weight: 219 lbs 12/20/2016 Blood Pressure 1: 126/70 Code: 8480-6 BMI: 37.2 Code: 67459-4 Heart Rate 1: 76 bpm Height: 5'4" Respiratory Rate: 22 bpm SpO2: 95% Tempera ture: 36.6 (C) / 97.8 (F) Weight: 217 lbs 10/08/2016 Blood Pressure 1: 128/82 Code: 8480-6 BMI: 36.9 Code: 43081-1 Heart Rate 1: 76 bpm Height: 5'4" Respiratory Rate: 20 bpm SpO2: 95% Tempera ture: 37.0 (C) / 98.6 (F) Weight: 215 lbs 09/19/2016 Blood Pressure 1: 144/78 Code: 8480-6 BMI: 37.8 Code: 04906-0 Heart Rate 1: 76 bpm Height: 5'4" Respiratory Rate: 22 bpm SpO2: 95% Tempera ture: 37.0 (C) / 98.6 (F) Weight: 220 lbs 08/20/2016 Blood Pressure 1: 140/86 Code: 8480-6 BMI: 37.4 Code: 42725-4 Heart Rate 1: 80 bpm Height: 5'4" Respiratory Rate: 20 bpm SpO2: 95% Tempera ture: 36.9 (C) / 98.4 (F) Weight: 218 lbs 06/19/2016 Blood Pressure 1: 12478 Code: 8480-6 BMI: 37.8 Code: 33157-5 Heart Rate 1: 74 bpm Height: 5'4" Respiratory Rate: 24 bpm SpO2: 96% Tempera ture: 36.9 (C) / 98.4 (F) Weight: 220 lbs 06/04/2016 Blood Pressure 1: 124/78 Code: 8480-6 BMI: 38.8 Code: 11071-8 Heart Rate 1: 72 bpm Height: 5'4" Respiratory Rate: 24 bpm SpO2: 95% Tempera ture: 36.8 (C) / 98.2 (F) Weight: 226 lbs 05/02/2016 Blood Pressure 1: 136/90 Code: 8480-6 BMI: 37.6 Code: 13072-6 Heart Rate 1: 72 bpm Height: 5'4" Respiratory Rate: 24 bpm SpO2: 96% Tempera ture: 36.9 (C) / 98.4 (F) Weight: 219 lbs 04/03/2016 Blood Pressure 1: 126/78 Code: 8480-6 BMI: 38.1 Code: 05151-8 Heart Rate 1: 72 bpm Height: 5'4" Respiratory Rate: 22 bpm SpO2: 94% Tempera ture: 36.9 (C) / 98.4 (F) Weight: 222 lbs 02/29/2016 Blood Pressure 1: 132/78 Code: 8480-6 Heart Rate 1: 78 bpm Height: Respiratory Rate: 24 bpm SpO2: 95% Temperature: 36.4 (C) / 97.6 (F) We ight: 02/02/2016 Blood Pressure 1: 124/78 Code: 8480-6 BMI: 37.6 Code: 56228-9 Heart Rate 1: 76 bpm Height: 5'4" Respiratory Rate: 20 bpm SpO2: 95% Tempera ture: 36.8 (C) / 98.2 (F) Weight: 219 lbs 01/05/2016 Blood Pressure 1: 126/70 Code: 8480-6 BMI: 37.1 Code: 55673-5 Heart Rate 1: 76 bpm Height: 5'4" Respiratory Rate: 20 bpm Temperature: 36 .6 (C) / 97.8 (F) Weight: 216 lbs 12/05/2015 Blood Pressure 1: 126/72 Code: 8480-6 BMI: 36.9 Code: 38787-7 Heart Rate 1: 92 bpm Height: 5'4" Respiratory Rate: 20 bpm Temperature: 36 .7 (C) / 98.1 (F) Weight: 215 lbs 10/26/2015 Blood Pressure 1: 142/80 Code: 8480-6 BMI: 36.4 Code: 39608-9 Heart Rate 1: 82 bpm Height: 5'4" Respiratory Rate: 24 bpm SpO2: 92% Tempera ture: 35.9 (C) / 96.7 (F) Weight: 212 lbs 10/05/2015 Blood Pressure 1: 136/82 Code: 8480-6 Heart Rate 1: 80 bpm Respiratory Rate: 18 bpm SpO2: 98% Temperature: 35.7 (C) / 96.3 (F) We ight: 214 lbs 09/15/2015 Blood Pressure 1: 116/80 Code: 8480-6 BMI: 34.6 Code: 60321-4 Heart Rate 1: 76 bpm Height: 5'6" Respiratory Rate: 20 bpm Temperature: 36 .6 (C) / 97.9 (F) Weight: 211 lbs 08/24/2015 Blood Pressure 1: 124/80 Code: 8480-6 BMI: 34.1 Code: 56706-7 Heart Rate 1: 68 bpm Height: 5'6" Respiratory Rate: 20 bpm Temperature: 36 .8 (C) / 98.3 (F) Weight: 208 lbs 07/05/2015 Blood Pressure 1: 114/78 Code: 8480-6 BMI: 33.9 Code: 05523-1 Heart Rate 1: 80 bpm Height: 5'6" Respiratory Rate: 20 bpm Temperature: 36 .6 (C) / 97.9 (F) Weight: 207 lbs 06/06/2015 Blood Pressure 1: 122/78 Code: 8480-6 BMI: 34.1 Code: 57466-5 Heart Rate 1: 76 bpm Height: 5'6" Respiratory Rate: 24 bpm SpO2: 96% Tempera ture: 36.4 (C) / 97.6 (F) Weight: 208 lbs 05/23/2015 Blood Pressure 1: 124/78 Code: 8480-6 Heart Rate 1: 76 bpm Respiratory Rate: 24 bpm SpO2: 93% Temperature: 36.8 (C) / 98.2 (F) We ight: 212 lbs 05/05/2015 Blood Pressure 1: 136/80 Code: 8480-6 BMI: 35.4 Code: 65461-7 Heart Rate 1: 76 bpm Height: 5'6" Respiratory Rate: 28 bpm Temperature: 37 .0 (C) / 98.6 (F) Weight: 216 lbs 03/30/2015 Blood Pressure 1: 132/86 Code: 8480-6 BMI: 35.2 Code: 43421-4 Heart Rate 1: 84 bpm Height: 5'6" Respiratory Rate: 24 bpm Temperature: 36 .7 (C) / 98.0 (F) Weight: 215 lbs 02/03/2015 Blood Pressure 1: 122/74 Code: 8480-6 BMI: 35.7 Code: 28632-6 Heart Rate 1: 84 bpm Height: 5'6" Respiratory Rate: 20 bpm Temperature: 36 .9 (C) / 98.5 (F) Weight: 218 lbs 12/29/2014 Blood Pressure 1: 132/80 Code: 8480-6 BMI: 35.1 Code: 77070-0 Heart Rate 1: 80 bpm Height: 5'6" Respiratory Rate: 20 bpm Temperature: 36 .6 (C) / 97.8 (F) Weight: 214 lbs 09/02/2014 Blood Pressure 1: 128/92 Code: 8480-6 BMI: 34.7 Code: 23618-5 Heart Rate 1: 84 bpm Height: 5'6" Respiratory Rate: 26 bpm Temperature: 36 .8 (C) / 98.2 (F) Weight: 212 lbs 08/25/2014 Blood Pressure 1: 124/80 Code: 8480-6 BMI: 34.7 Code: 73363-7 Heart Rate 1: 78 bpm Height: 5'6" Respiratory Rate: 22 bpm SpO2: 97% Tempera ture: 36.6 (C) / 97.8 (F) Weight: 212 lbs 04/01/2014 Blood Pressure 1: 142/84 Code: 8480-6 BMI: 34.4 Code: 47502-7 Heart Rate 1: 74 bpm Height: 5'5" Respiratory Rate: 20 bpm Temperature: 36 .4 (C) / 97.6 (F) Weight: 207 lbs 03/16/2014 Blood Pressure 1: 142/90 Code: 8480-6 BMI: 34.6 Code: 64614-4 Heart Rate 1: 76 bpm Height: 5'5" Respiratory Rate: 24 bpm Temperature: 36 .5 (C) / 97.7 (F) Weight: 208 lbs 03/09/2014 Blood Pressure 1: 116/70 Code: 8480-6 BMI: 35.3 Code: 35495-8 Heart Rate 1: 72 bpm Height: 5'5" [...] 1: 128/86 Code: 8480-6 BMI: 34.3 Code: 35094-4 Heart Rate 1: 84 bpm Height: 5'5" Respiratory Rate: 20 bpm Temperature: 36 .7 (C) / 98.0 (F) Weight: 206 lbs 12/23/2013 Blood Pressure 1: 122/70 Code: 8480-6 BMI: 34.3 Code: 41177-9 Heart Rate 1: 68 bpm Height: 5'5" Respiratory Rate: 20 bpm Temperature: 36 .8 (C) / 98.2 (F) Weight: 206 lbs 10/05/2013 Blood Pressure 1: 118/76 Code: 8480-6 BMI: 34.1 Code: 96345-8 Heart Rate 1: 68 bpm Height: 5'5" Respiratory Rate: 20 bpm SpO2: 98% Tempera ture: 36.6 (C) / 97.9 (F) Weight: 205 lbs 08/04/2013 Blood Pressure 1: 126/82 Code: 8480-6 BMI: 33.3 Code: 90055-5 Heart Rate 1: 76 bpm Height: 5'5" Respiratory Rate: 20 bpm Temperature: 36 .8 (C) / 98.2 (F) Weight: 200 lbs 07/03/2013 Blood Pressure 1: 124/82 Code: 8480-6 BMI: 33.3 Code: 40624-5 Heart Rate 1: 72 bpm Height: 5'5" Respiratory Rate: 22 bpm Temperature: 36 .1 (C) / 97.0 (F) Weight: 200 lbs 05/27/2013 Blood Pressure 1: 126/82 Code: 8480-6 Heart Rate 1: 74 bpm Respiratory Rate: 20 bpm Temperature: 36.0 (C) / 96.8 (F) Weight: 199 lbs 04/06/2013 Blood Pressure 1: 118/80 Code: 8480-6 BMI: 35.2 Code: 07876-6 Heart Rate 1: 80 bpm Height: 5'4" Respiratory Rate: 20 bpm Temperature: 37 .4 (C) / 99.3 (F) Weight: 205 lbs 11/10/2012 Blood Pressure 1: 128/82 Code: 8480-6 Heart Rate 1: 84 bpm Respiratory Rate: 20 bpm Temperature: 36.7 (C) / 98.0 (F) Weight: 199 lbs 09/02/2012 Blood Pressure 1: 116/82 Code: 8480-6 BMI: 34.2 Code: 34047-1 Heart Rate 1: 88 bpm Height: 5'4" Respiratory Rate: 22 bpm Temperature: 36 .6 (C) / 97.8 (F) Weight: 199 lbs 08/04/2012 Blood Pressure 1: 128/74 Code: 8480-6 BMI: 34.0 Code: 51255-5 Heart Rate 1: 92 bpm Height: 5'4" Respiratory Rate: 20 bpm Temperature: 36 .4 (C) / 97.5 (F) Weight: 198 lbs 07/21/2012 Blood Pressure 1: 124/86 Code: 8480-6 Heart Rate 1: 116 bpm Respiratory Rate: 24 bpm Temperature: 36.8 (C) / 98.2 (F) 07/02/2012 Blood Pressure 1: 116/88 Code: 8480-6 BMI: 33.6 Code: 73932-0 Heart Rate 1: 76 bpm Height: 5'4" Respiratory Rate: 20 bpm Temperature: 36 .8 (C) / 98.3 (F) Weight: 196 lbs 06/24/2012 Blood Pressure 1: 124/80 Code: 8480-6 BMI: 34.3 Code: 51509-3 Heart Rate 1: 72 bpm Height: 5'4" SpO2: 96% Temperature: 36.3 (C) / 97.3 (F) Weight: 200 lbs 05/20/2012 Blood Pressure 1: 116/88 Code: 8480-6 BMI: 33.8 Code: 91004-4 Heart Rate 1: 80 bpm Height: 5'4" Respiratory Rate: 22 bpm Temperature: 36 .9 (C) / 98.4 (F) Weight: 197 lbs 05/08/2012 Blood Pressure 1: 128/86 Code: 8480-6 BMI: 33.8 Code: 02193-0 Heart Rate 1: 76 bpm Height: 5'4" Respiratory Rate: 26 bpm SpO2: 95% Tempera ture: 36.1 (C) / 97.0 (F) Weight: 197 lbs 04/22/2012 Blood Pressure 1: 106/64 Code: 8480-6 BMI: 33.8 Code: 55351-0 Heart Rate 1: 70 bpm Height: 5'4" Temperature: 36.1 (C) / 97.0 (F) Weight: 197 lbs 02/13/2012 Blood Pressure 1: 126/82 Code: 8480-6 BMI: 34.7 Code: 27758-0 Heart Rate 1: 64 bpm Height: 5'4" Respiratory Rate: 20 bpm Temperature: 36 .6 (C) / 97.8 (F) Weight: 202 lbs 01/28/2012 Blood Pressure 1: 116/80 Code: 8480-6 BMI: 34.7 Code: 68053-4 Heart Rate 1: 76 bpm Height: 5'4" Respiratory Rate: 20 bpm Temperature: 36 .8 (C) / 98.3 (F) Weight: 202 lbs 12/26/2011 Blood Pressure 1: 132/82 Code: 8480-6 BMI: 36.0 Code: 53286-8 Heart Rate 1: 68 bpm Height: 5'4" Respiratory Rate: 22 bpm Temperature: 36 .7 (C) / 98.0 (F) Weight: 210 lbs 11/14/2011 Blood Pressure 1: 124/80 Code: 8480-6 BMI: 36.4 Code: 01786-7 Heart Rate 1: 76 bpm Height: 5'4" Respiratory Rate: 20 bpm Temperature: 36 .8 (C) / 98.2 (F) Weight: 212 lbs 09/12/2011 Blood Pressure 1: 108/74 Code: 8480-6 BMI: 37.1 Code: 52311-5 Heart Rate 1: 72 bpm Height: 5'4" Respiratory Rate: 20 bpm Temperature: 37 .0 (C) / 98.6 (F) Weight: 216 lbs 08/15/2011 Blood Pressure 1: 122/80 Code: 8480-6 BMI: 36.9 Code: 31948-7 Heart Rate 1: 76 bpm Height: 5'4" Respiratory Rate: 20 bpm Temperature: 36 .2 (C) / 97.1 (F) Weight: 215 lbs 08/09/2011 Blood Pressure 1: 112/78 Code: 8480-6 BMI: 36.9 Code: 84161-0 Heart Rate 1: 68 bpm Height: 5'4" Respiratory Rate: 20 bpm Temperature: 36 .7 (C) / 98.0 (F) Weight: 215 lbs 07/03/2011 Blood Pressure 1: 140/94 Code: 8480-6 BMI: 36.2 Code: 75924-4 Heart Rate 1: 68 bpm Height: 5'4" Temperature: 36.0 (C) / 96.8 (F) Weight: 211 lbs 06/04/2011 Blood Pressure 1: 124/70 Code: 8480-6 BMI: 36.7 Code: 49623-2 Heart Rate 1: 68 bpm Height: 5'4" Respiratory Rate: 20 bpm Temperature: 36 .6 (C) / 97.9 (F) Weight: 214 lbs 05/03/2011 Blood Pressure 1: 130/76 Code: 8480-6 BMI: 36.4 Code: 30587-4 Heart Rate 1: 74 bpm Height: 5'5" Temperature: 36.2 (C) / 97.2 (F) Weight: 219 lbs 04/05/2011 Blood Pressure 1: 124/86 Code: 8480-6 BMI: 35.9 Code: 68666-4 Heart Rate 1: 76 bpm Height: 5'6" Respiratory Rate: 22 bpm Temperature: 36 .3 (C) / 97.3 (F) Weight: 219 lbs 03/08/2011 Blood Pressure 1: 112/78 Code: 8480-6 BMI: 35.1 Code: 22980-7 Heart Rate 1: 80 bpm Height: 5'6" Respiratory Rate: 26 bpm Temperature: 36 .9 (C) / 98.4 (F) Weight: 214 lbs 01/24/2011 Blood Pressure 1: 110/82 Code: 8480-6 BMI: 35.6 Code: 13898-5 Heart Rate 1: 80 bpm Height: 5'6" Temperature: 36.1 (C) / 97.0 (F) Weight: 217 lbs 01/02/2011 Blood Pressure 1: 106/72 Code: 8480-6 BMI: 35.6 Code: 88116-3 Heart Rate 1: 76 bpm Height: 5'6" [...] 1: 120/74 Code: 8480-6 BMI: 35.9 Code: 74503-3 Heart Rate 1: 72 bpm Height: 5'5" Temperature: 36.3 (C) / 97.4 (F) Weight: 216 lbs 09/19/2010 Blood Pressure 1: 124/80 Code: 8480-6 BMI: 35.4 Code: 47481-3 Heart Rate 1: 76 bpm Height: 5'5" [...] 1: 122/78 Code: 8480-6 BMI: 37.4 Code: 44842-2 Heart Rate 1: 84 bpm Height: 5'5" [...] 07/24/16 follow up 06/19/2016 1 week [facility] owup follow up 06/04/2016 1mo fwup follow up 05/02/2016 Hospital fwup follow up 04/03/2016 dyspnea 02/29/2016 low grade 99s follow up 02/02/2016 ER fwup diabetes mellitus 01/05/2016 painful urination 12/05/2015 follow up 10/26/2015 ER visit from at [facility] for COPD Exacerbation follow up 10/05/2015 ER Visit gait abnormality 09/15/2015 Patient requesting kelly pineda paperwork to be filled out disturbances of thinking 08/24/2015 follow up 07/05/2015 4wk fwup follow up 06/06/2015 [facility] fw cough 05/23/2015 follow up 05/05/2015 dyspnea 03/30/2015 [facility] needs new orde r for O2 abdominal pain 02/03/2015 cyst 12/29/2014 vs abscess follow up 09/02/2014 [facility] headache 08/25/2014 facial drooping follow up [...] up 10/18/[address] [facility], having increased allergy symptoms. Would like [...] 1 month f/u follow up 12/07/[address] [facility], done with PT--finished about 2wks [...] Hyperglycemia[ICD10: R73.9] Diagnosis: Edema[ICD10: R60.9] Belia Shi [employer] CPT-4: 38713 09/02/2019 OFFICE/OUTPATIENT VISIT EST Diagnosis: Fibromyalgia[ICD10: M79.7] Diagnosis: Muscle weakness[ICD10: M62.81] Diagnosis: Generalized pain[ICD10: R52] Diagnosis: Hypoxia[ICD10: R09.02] Diagnosis: Migraine[ICD10: G43.909] Belia POP [employer] CPT-4: 58478 08/25/2019 ([id number]) OFFICE/OUTPATIENT VISIT EST Diagnosis: Yawning[ICD10: R06.89] Diagnosis: LION (obstructive sleep apnea)[ICD10: G47.33] Pattie BRUNSON [employer] CPT-4: 03957 08/10/2019 ([id number]) OFFICE/OUTPATIENT VISIT EST Diagnosis: Pelvic pain in female[ICD10: R10.2] Diagnosis: Left leg swelling[ICD10: M79.89] Diagnosis: Dyspnea[ICD10: R06.00] Diagnosis: Constipation[ICD10: K59.00] Pattie BRUNSON [employer] CPT-4: 17952 08/04/2019 ([id number]) OFFICE/OUTPATIENT VISIT EST Diagnosis: Inspiratory stridor[ICD10: R06.1] Diagnosis: Diarrhea[ICD10: R19.7] Belia Reid [facility] CPT-4: 9921 3 07/06/2019 ([id number]) OFFICE/OUTPATIENT VISIT EST Diagnosis: Left leg swelling[ICD10: M79.89] Diagnosis: Dyspnea[ICD10: R06.00] Belia Reid [facility] CPT-4: 9921 3 06/24/2019 ([id number]) OFFICE/OUTPATIENT VISIT EST Diagnosis: Acute bronchitis[ICD10: J20.9] Diagnosis: Colitis[ICD10: K52.9] Belia REID [employer] [facility] CPT-4: 59986 06/16/2019 ([id number]) OFFICE/OUTPATIENT VISIT EST Diagnosis: Diarrhea[ICD10: R19.7] Diagnosis: Abdominal bloating[ICD10: R14.0] Belia Reid [facility] CPT- 4: 89976 06/08/2019 ([id number]) OFFICE/OUTPATIENT VISIT EST Diagnosis: Acute febrile illness[ICD10: R50.9] Diagnosis: Colitis[ICD10: K52.9] Belia Reid [facility] CPT-4: 98120 05/26/2019 ([id number]) OFFICE/OUTPATIENT VISIT EST Diagnosis: Chronic obstructive pulmonary disease, unspecified[ICD10: J44.9] Diagnosis: Pulmonary fibrosis[ICD10: J84.10] Diagnosis: Intermittent stridor[ICD10: R06.1] Diagnosis: Muscle weakness[ICD10: M62.81] Belia REID [facility] CPT-4: 34588 05/13/2019 ([id number]) OFFICE/OUTPATIENT VISIT EST Diagnosis: Stridor[ICD10: R06.1] Diagnosis: COUGH[ICD10: R05] Belia REID [facility] CPT-4: 83797 05/06/2019 ([id number]) OFFICE/OUTPATIENT VISIT EST Diagnosis: Stridor[ICD10: R06.1] Diagnosis: Muscle, jerky movements (uncontrolled)[ICD10: G25.5] Belia REID DO [facility] CPT-4: 99516 04/29/2019 ([id number]) OFFICE/OUTPATIENT VISIT EST Diagnosis: Upper respiratory infection[ICD10: J06.9] Diagnosis: Flank pain[ICD10: R10.9] Diagnosis: Weight gain[ICD10: R63.5] Pattie AMBRIZ DO [facility] CPT-4: 93024 04/16/2019 ([id number]) OFFICE/OUTPATIENT VISIT EST Diagnosis: Generalized pruritus[ICD10: L29.9] Belia REID [facility] CPT-4: 86955 04/08/2019 ([id number]) OFFICE/OUTPATIENT VISIT EST Diagnosis: Acute bursitis of left shoulder[ICD10: M75.52] Diagnosis: Cervicalgia[ICD10: M54.2] Diagnosis: Chest wall pain[ICD10: R07.89] Belia REID [facility] CPT-4: 43234 01/22/2019 ([id number]) OFFICE/OUTPATIENT VISIT EST Diagnosis: Abdominal pain[ICD10: R10.9] Diagnosis: Pyelonephritis[ICD10: N12] Pattie DOMINGUEZ [facility] CPT-4: 53338 01/07/2019 ([id number]) OFFICE/OUTPATIENT VISIT EST Diagnosis: Low back pain[ICD10: M54.5] Diagnosis: Left lumbar radiculopathy[ICD10: M54.16] Diagnosis: Left flank pain[ICD10: R10.9] Diagnosis: Left lower quadrant pain[ICD10: R10.32] Diagnosis: FLU VACCINE[ICD10: Z23] Belia FREDERICK [facility] CPT-4: 30425 12/24/2018 ([id number]) OFFICE/OUTPATIENT VISIT EST Diagnosis: Migraine, unspecified, not intractable, without status migrainosus[ICD10: G43.909] Diagnosis: Fibromyalgia[ICD10: M79.7] Belia DOMINGUEZ [facility] CPT-4: 92208 11/20/2018 ([id number]) OFFICE/OUTPATIENT VISIT EST Diagnosis: Migraine, unspecified, intractable, without status migrainosus[ICD10: G43.919] Diagnosis: Acute sinusitis, unspecified[ICD10: J01.90] Pattie REID DO [facility] CPT-4: 78278 11/04/2018 ([id number]) OFFICE/OUTPATIENT VISIT EST Diagnosis: Pain in left wrist[ICD10: M25.532] Diagnosis: Other dorsalgia[ICD10: M54.89] Pattie REID DO [facility] CPT-4: 54769 09/08/2018 ([id number]) OFFICE/OUTPATIENT VISIT EST Diagnosis: Acute stress reaction[ICD10: F43.0] Diagnosis: Pruritus, unspecified[ICD10: L29.9] 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, 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] Belia REID [facility] CPT-4: 08726 08/20/2018 ([id number]) OFFICE/OUTPATIENT VISIT EST Diagnosis: Hypotension due to drugs[ICD10: I95.2] Diagnosis: Paroxysmal atrial fibrillation[ICD10: I48.0] Diagnosis: Localized edema[ICD10: R60.0] Belia REID [facility] CPT-4: 13002 06/19/2018 ([id number]) OFFICE/OUTPATIENT VISIT EST Diagnosis: Generalized hyperhidrosis[ICD10: R61] Diagnosis: Essential (primary) hypertension[ICD10: I10] Diagnosis: Supraventricular tachycardia[ICD10: I47.1] Belia REID DO [facility] CPT-4: 53004 06/09/2018 ([id number]) OFFICE/OUTPATIENT VISIT EST Diagnosis: Stridor[ICD10: R06.1] Diagnosis: Dependence on supplemental oxygen[ICD10: Z99.81] Diagnosis: Weakness[ICD10: R53.1] Diagnosis: Supraventricular tachycardia[ICD10: I47.1] Belia REID DO [facility] CPT-4: 75115 05/21/2018 ([id number]) OFFICE/OUTPATIENT VISIT EST Diagnosis: Cervical disc disorder with radiculopathy, unspecified cervical region[ICD10: M50.10] Belia REID [facility] CPT-4: 30740 04/16/2018 ([id number]) OFFICE/OUTPATIENT VISIT EST Diagnosis: Migraine, unspecified, intractable, without status migrainosus[ICD10: G43.919] Diagnosis: Fibromyalgia[ICD10: M79.7] Pattie DOMINGUEZ [facility] CPT-4: 56753 04/01/2018 ([id number]) NURSE/OUTPATIENT VISIT EST Diagnosis: Hematuria, unspecified[ICD10: R31.9] Diagnosis: Dysuria[ICD10: R30.0] Belia REID [facility] CPT-4: 89009 03/17/2018 ([id number]) OFFICE/OUTPATIENT VISIT EST Diagnosis: Erythema intertrigo[ICD10: L30.4] Diagnosis: Chronic obstructive pulmonary disease with (acute) exacerbation[ICD10: J44.1] Diagnosis: Type 2 diabetes mellitus with hyperglycemia[ICD10: E11.65] Belia REID [facility] CPT-4: 32140 03/06/2018 ([id number]) OFFICE/OUTPATIENT VISIT EST Diagnosis: Cervicalgia[ICD10: M54.2] Patite AMBRIZ [facility] CPT-4: 25782 02/05/2018 ([id number]) OFFICE/OUTPATIENT VISIT EST Diagnosis: Candidiasis of skin and nail[ICD10: B37.2] Diagnosis: Cervicalgia[ICD10: M54.2] Pattie AMBRIZ [facility] CPT-4: 13924 01/20/2018 ([id number]) OFFICE/OUTPATIENT VISIT EST Diagnosis: Pain in thoracic spine[ICD10: M54.6] Diagnosis: Radiculopathy, thoracic region[ICD10: M54.14] Belia REID [facility] CPT-4: 91677 12/25/2017 ([id number]) OFFICE/OUTPATIENT VISIT EST Diagnosis: Pain in thoracic spine[ICD10: M54.6] Diagnosis: Other muscle spasm[ICD10: M62.838] Diagnosis: FLU VACCINE[ICD10: Z23] Diagnosis: PNEUMOCOCCAL VACCINE[ICD10: Z23] Belia REID DO [facility] CPT-4: 97623 12/17/2017 ([id number]) OFFICE/OUTPATIENT VISIT EST Diagnosis: Chronic obstructive pulmonary disease with (acute) exacerbation[ICD10: J44.1] Belia REID DO [facility] CPT- 4: 62763 10/30/2017 ([id number]) OFFICE/OUTPATIENT VISIT EST Diagnosis: Chronic obstructive pulmonary disease with acute lower respiratory infection[ICD10: J44.0] Diagnosis: Mild intermittent asthma with (acute) exacerbation[ICD10: J45.21] Belia REID DO [facility] CPT-4: 78280 10/23/2017 ([id number]) NURSE/OUTPATIENT VISIT EST Diagnosis: Migraine, unspecified, not intractable, without status migrainosus[ICD10: G43.909] Belia REID DO [facility] CPT - 4: 91041 08/26/2017 ([id number]) OFFICE/OUTPATIENT VISIT EST Diagnosis: Urinary tract infection, site not specified[ICD10: N39.0] Diagnosis: Encounter for screening for osteoporosis[ICD10: Z13.820] Diagnosis: Encounter for screening mammogram for malignant neoplasm of breast[ICD10: Z12.31] Diagnosis: Acute bronchitis, unspecified[ICD10: J20.9] Pattie REID DO [facility] CPT-4: 17181 07/19/2017 ([id number]) OFFICE/OUTPATIENT VISIT EST Diagnosis: Rash and other nonspecific skin eruption[ICD10: R21] Pattie REID DO [facility] CPT-4: 32462 05/29/2017 ([id number]) OFFICE/OUTPATIENT VISIT EST Diagnosis: Diarrhea, unspecified[ICD10: R19.7] Diagnosis: Tinea corporis[ICD10: B35.4] Diagnosis: Tinea cruris[ICD10: B35.6] Diagnosis: Migraine, unspecified, not intractable, without status migrainosus[ICD10: G43.909] Belia SMITHER [facility] CPT - 4: 76912 05/07/2017 ([id number]) OFFICE/OUTPATIENT VISIT EST Diagnosis: Stridor[ICD10: R06.1] Diagnosis: Chronic obstructive pulmonary disease with (acute) exacerbation[ICD10: J44.1] Belia REID [facility] CPT- 4: 96012 03/18/2017 ([id number]) OFFICE/OUTPATIENT VISIT EST Diagnosis: Type 2 diabetes mellitus with hyperglycemia[ICD10: E11.65] Belia REID [facility] CPT-4: 89949 02/27/2017 OFFICE/OUTPATIENT VISIT EST Diagnosis: Type 2 diabetes mellitus with hyperglycemia[ICD10: E11.65] Pattie REID [facility] CPT-4: 33006 02/22/2017 ([id number]) OFFICE/OUTPATIENT VISIT EST Diagnosis: Urinary tract infection, site not specified[ICD10: N39.0] Diagnosis: Pneumonia, unspecified organism[ICD10: J18.9] Diagnosis: Type 2 diabetes mellitus with hyperglycemia[ICD10: E11.65] [facility] 60190 01/23/2017 ([id number]) OFFICE/OUTPATIENT VISIT EST Diagnosis: Type 2 diabetes mellitus with hyperglycemia[ICD10: E11.65] Diagnosis: Localized edema[ICD10: R60.0] Diagnosis: PNEUMOCOCCAL VACCINE[ICD10: Z23] Diagnosis: FLU VACCINE[ICD10: Z23] Belia SMITH [facility] CPT-4: 50324 12/20/2016 OFFICE/OUTPATIENT VISIT EST Diagnosis: Pain in thoracic spine[ICD10: M54.6] Diagnosis: Low back pain[ICD10: M54.5] Diagnosis: Cervicalgia[ICD10: M54.2] Diagnosis: Cough[ICD10: R05] Celeste Ferreira BELIA REID [facility] CPT-4: 26306 10/08/2016 ([id number]) OFFICE/OUTPATIENT VISIT EST Diagnosis: Primary insomnia[ICD10: F51.01] Diagnosis: Migraine, unspecified, not intractable, without status migrainosus[ICD10: G43.909] Diagnosis: Type 2 diabetes mellitus with hyperglycemia[ICD10: E11.65] Belia REID DO [facility] CPT-4: 60665 09/19/2016 ([id number]) OFFICE/OUTPATIENT VISIT EST Diagnosis: Migraine, unspecified, not intractable, without status migrainosus[ICD10: G43.909] Diagnosis: Generalized abdominal pain[ICD10: R10.84] Diagnosis: Cough[ICD10: R05] Belia REID DO [facility] CPT-4: 36156 08/20/2016 ([id number]) OFFICE/OUTPATIENT VISIT EST Diagnosis: Chronic obstructive pulmonary disease, unspecified[ICD10: J44.9] Diagnosis: Stridor[ICD10: R06.1] Belia REID DO [facility] CPT-4: 46713 06/19/2016 ([id number]) OFFICE/OUTPATIENT VISIT EST Diagnosis: Chronic obstructive pulmonary disease, unspecified[ICD10: J44.9] Diagnosis: Personal history of urinary (tract) infections[ICD10: Z87.440] Belia REID DO [facility] CPT-4: 19949 06/04/2016 ([id number]) OFFICE/OUTPATIENT VISIT EST Diagnosis: Stridor[ICD10: R06.1] Diagnosis: Chronic obstructive pulmonary disease with acute lower respiratory infection[ICD10: J44.0] Diagnosis: Other specified diseases of intestine[ICD10: K63.89] Diagnosis: Cystitis, unspecified without hematuria[ICD10: N30.90] Belia REID DO [facility] CPT-4: 96873 05/02/2016 ([id number]) OFFICE/OUTPATIENT VISIT EST Diagnosis: Fibromyalgia[ICD10: M79.7] Diagnosis: Urinary tract infection, site not specified[ICD10: N39.0] Belia REID DO [facility] CPT-4: 15041 04/03/2016 ([id number]) OFFICE/OUTPATIENT VISIT EST Diagnosis: Unspecified asthma, uncomplicated[ICD10: J45.909] Diagnosis: Cough[ICD10: R05] Lidia Jaiden REID [facility] T-4: 74984 02/29/2016 ([id number]) OFFICE/OUTPATIENT VISIT EST Diagnosis: Migraine, unspecified, intractable, without status migrainosus[ICD10: G43.919] Diagnosis: Urinary tract infection, site not specified[ICD10: N39.0] Beliahanna REID [facility] CPT-4: 94124 02/02/2016 ([id number]) OFFICE/OUTPATIENT VISIT EST Diagnosis: Urinary tract infection, site not specified[ICD10: N39.0] Diagnosis: Unspecified abdominal pain[ICD10: R10.9] Diagnosis: Pain in thoracic spine[ICD10: M54.6] Diagnosis: Type 2 diabetes mellitus with diabetic neuropathic arthropathy[ICD10: E11.610] Belia REID [facility] CPT-4: 04043 12/05/2015 ([id number]) OFFICE/OUTPATIENT VISIT EST Diagnosis: Chronic obstructive pulmonary disease with (acute) exacerbation[ICD10: J44.1] Diagnosis: Migraine, unspecified, not intractable, without status migrainosus[ICD10: G43.909] Lidia REID [employer] [facility] CPT -4: 50955 10/26/2015 ([id number]) OFFICE/OUTPATIENT VISIT EST Diagnosis: Hematuria, unspecified[ICD10: R31.9] Diagnosis: Urinary tract infection, site not specified[ICD10: N39.0] Lidia TomlinsonMayda ANUSHKA [facility] CPT-4: 00493 10/05/2015 OFFICE/OUTPATIENT VISIT EST Diagnosis: Chronic obstructive pulmonary disease, unspecified[ICD10: J44.9] Diagnosis: Muscle weakness (generalized)[ICD10: M62.81] Diagnosis: Polyneuropathy, unspecified[ICD10: G62.9] Diagnosis: Other intervertebral disc degeneration, 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] Diagnosis: Fibromyalgia[ICD10: M79.7] Belia Anushka HSUQUELINE Yuridia DOMINGUEZ [employer] [facility] CPT-4: 62494 09/15/2015 ([id number]) OFFICE/OUTPATIENT VISIT EST Diagnosis: Disorientation, unspecified[ICD10: R41.0] Diagnosis: Headache[ICD10: R51] Diagnosis: Paresthesia of skin[ICD10: R20.2] Lidia REID [employer] [facility] CPT-4: 26326 08/24/2015 ([id number]) OFFICE/OUTPATIENT VISIT EST Diagnosis: Type 2 diabetes mellitus with hyperglycemia[ICD10: E11.65] Diagnosis: Chronic obstructive pulmonary disease with acute lower respiratory infection[ICD10: J44.0] Belia REID DO [facility] CPT-4: 25371 07/05/2015 ([id number]) OFFICE/OUTPATIENT VISIT EST Diagnosis: Mild intermittent asthma with (acute) exacerbation[ICD10: J45.21] Diagnosis: Chronic obstructive pulmonary disease, unspecified[ICD10: J44.9] Belia REID [facility] CPT-4: 09411 06/06/2015 ([id number]) OFFICE/OUTPATIENT VISIT EST Diagnosis: Chronic obstructive pulmonary disease with (acute) exacerbation[ICD10: J44.1] Lidia REID [facility] CPT- 4: 73528 05/23/2015 ([id number]) OFFICE/OUTPATIENT VISIT EST Diagnosis: Type 2 diabetes mellitus with hyperglycemia[ICD10: E11.65] Diagnosis: Functional dyspepsia[ICD10: K30] Belia REID [employer] [facility] CPT-4: 57763 05/05/2015 ([id number]) OFFICE/OUTPATIENT VISIT EST Diagnosis: Type 2 diabetes mellitus with hyperglycemia[ICD10: E11.65] Diagnosis: Glycosuria[ICD10: R81] Diagnosis: Urinary tract infection, site not specified[ICD10: N39.0] Bleia REID [employer] [facility] CPT-4: 13177 03/30/2015 ([id number]) OFFICE/OUTPATIENT VISIT EST Diagnosis: Generalized abdominal pain[ICD10: R10.84] Diagnosis: Diarrhea, unspecified[ICD10: R19.7] Diagnosis: Urinary tract infection, site not specified[ICD10: N39.0] Diagnosis: Gastro-esophageal reflux disease without esophagitis[ICD10: K21.9] Belia REID [employer] [facility] CPT-4: 71517 02/03/2015 ([id number]) OFFICE/OUTPATIENT VISIT EST Diagnosis: Other specified noninflammatory disorders of vagina[ICD10: N89.8] Diagnosis: Follicular disorder, unspecified[ICD10: L73.9] Diagnosis: Functional dyspepsia[ICD10: K30] Diagnosis: FLU VACCINE[ICD10: Z23] Beliahanna Reid BELIA BushraMayda [facility] CPT-4: 85960 12/29/2014 ([id number]) OFFICE/OUTPATIENT VISIT EST 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] Diagnosis: RESTLESS LEGS SYNDROME[ICD9: 333.94] Diagnosis: MIGRAINE NOS/NOT INTRCBL[ICD9: 346.90] Belia Smithotoniel SONJA ULUBNA BushraMayda [facility] CPT-4: 15468 09/02/2014 ([id number]) OFFICE/OUTPATIENT VISIT EST Diagnosis: Cervical radiculopathy[ICD9: 723.4] Diagnosis: Cervicalgia[ICD9: 723.1] Diagnosis: Degenerative disc disease, cervical[ICD9: 722.4] 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I[ICD9: 250.00] Beliahanna Humphriesnilson BRUNSON BushraMayda [facility] CPT-4: 97493 04/01/2014 OFFICE/OUTPATIENT VISIT EST Diagnosis: Reactive airway disease[ICD9: 493.90] Belia Anushka HSUPAUL LUBNA BushraMayda [facility] CPT-4: 16106 03/16/2014 ([id number]) OFFICE/OUTPATIENT VISIT EST Diagnosis: BRONCHITIS, ACUTE[ICD9: 466.0] Diagnosis: Reactive airway disease[ICD9: 493.90] Belia FONTAINE LUBNA BushraMayda [facility] CPT-4: 17065 03/09/2014 OFFICE/OUTPATIENT VISIT EST Diagnosis: BRONCHITIS, ACUTE[ICD9: 466.0] Diagnosis: WHEEZING[ICD9: 786.07] Huong [facility]: 64092 03/03/2014 OFFICE/OUTPATIENT VISIT EST Diagnosis: BRONCHITIS, ACUTE[ICD9: 466.0] Diagnosis: WHEEZING[ICD9: 786.07] [facility]: 17526 03/01/2014 ([id number]) OFFICE/OUTPATIENT VISIT EST Diagnosis: GERD[ICD9: 530.81] Diagnosis: ARTHRALGIA-MULTIPLE SITES[ICD9: 719.49] Diagnosis: LUMB/LUMBOSAC DISC DEGEN[ICD9: 722.52] Diagnosis: - I - FIBROMYALGIA[ICD9: 729.1] Belia Zacharyisabellaotoniel HSUBELIA BushraMayda [facility] CPT-4: 82888 02/09/2014 ([id number]) OFFICE/OUTPATIENT VISIT EST Diagnosis: Peptic ulcer disease[ICD9: 533.90] Diagnosis: RESTLESS LEGS SYNDROME[ICD9: 333.94] Diagnosis: Neuropathy[ICD9: 355.9] Belia Zacharyisabellaotoniel BELIA BushraMayda [facility] O[facility]IEL [facility] CPT-4: 65226 12/23/2013 ([id number]) OFFICE/OUTPATIENT VISIT EST Diagnosis: URINARY TRACT INFECTION[ICD9: 599.0] Belia Zacharynilson HSUQUE CLAYTON BushraMayda [facility] CPT-[facility]: 28969 10/30/2013 ([id number]) OFFICE/OUTPATIENT VISIT EST Diagnosis: Flank pain[ICD9: 789.00] Belia Humphriesisabellaotoniel BELIA BushraMayda [facility] CPT-4: 90557 10/21/2013 ([id number]) OFFICE/OUTPATIENT VISIT EST Diagnosis: INFLAMED SEBORR KERATOS[ICD9: 702.11] Diagnosis: Brachioradial pruritus[ICD9: 698.9] Diagnosis: ASTHMA NOS[ICD9: 493.90] Belia Zacharynilson BRUNSON BushraMayda KIESHA VIRGILIO [facility] CPT-4: 72630 10/05/2013 ([id number]) OFFICE/OUTPATIENT VISIT EST Diagnosis: HYPERTENSION[ICD9: 401.9] Diagnosis: - I - FIBROMYALGIA[ICD9: 729.1] Diagnosis: DIZZINESS/VERTIGO[ICD9: 780.4] Diagnosis: MIGRAINE NOS/NOT INTRCBL[ICD9: 346.90] Diagnosis: Diabetic peripheral neuropathy[ICD9: 250.60] Diagnosis: Flank pain[ICD9: 789.00] Belia BRUNSON BushraMayda [facility] CPT-4: 29930 08/04/2013 ([id number]) OFFICE/OUTPATIENT VISIT EST Diagnosis: ALLERGIC RHINITIS[ICD9: 477.9] Belia Zacharynilson BRUNSON Bushra Mayda ANUSHKA [facility] CPT-4: 12622 07/13/2013 OFFICE/OUTPATIENT VISIT EST Diagnosis: URINARY TRACT INFECTION[ICD9: 599.0] Huong De LunaFidepool REID [facility] CPT-4: 15220 07/03/2013 OFFICE/OUTPATIENT VISIT EST Diagnosis: HYPERTENSION[ICD9: 401.9] Diagnosis: URINARY TRACT INFECTION[ICD9: 599.0] Diagnosis: BACKACHE[ICD9: 724.5] Diagnosis: URINARY INCONTINENCE[ICD9: 788.30] Huong De LunaKp ARACELISROBERTOKIMI MARIE BushraMayda [facility] CPT-4: 98875 05/27/2013 ([id number]) OFFICE/OUTPATIENT VISIT EST Diagnosis: Flank pain[ICD9: 789.00] Belia POOLE [facility] CPT-4: 75820 05/25/2013 ([id number]) OFFICE/OUTPATIENT VISIT EST Diagnosis: B-COMPLEX DEFIC NEC[ICD9: 266.2] Belia Zacharynilson BRUNSON BushraMayda [facility] CPT-4: 33687 05/04/2013 ([id number]) OFFICE/OUTPATIENT VISIT EST Diagnosis: ALLERGIC RHINITIS[ICD9: 477.9] Diagnosis: Vitamin B12 deficiency[ICD9: 266.2] Belia THOMPSON BushraMayda ANUSHKA [facility] CPT-4: 25738 04/17/2013 ([id number]) OFFICE/OUTPATIENT VISIT EST 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I[ICD9: 250.00] Diagnosis: URINARY TRACT INFECTION[ICD9: 599.0] Diagnosis: DIZZINESS/VERTIGO[ICD9: 780.4] Diagnosis: DIARRHEA[ICD9: 787.91] Belia Peguero [facility] CPT-4: 36005 04/06/2013 ([id number]) OFFICE/OUTPATIENT VISIT EST Diagnosis: URINARY TRACT INFECTION[ICD9: 599.0] Diagnosis: URINARY RETENTION[ICD9: 788.20] Belia [facility]UNSON [facility]da [facility] CPT-[facility]: 32695 11/10/2012 ([id number]) OFFICE/OUTPATIENT VISIT EST Diagnosis: TACHYCARDIA[ICD9: 785.0] Diagnosis: SYNCOPE AND COLLAPSE[ICD9: 780.2] Diagnosis: CONSCIOUSNS ALTERAT NEC[ICD9: 780.09] Belia Smithotoniel MINAL REID [facility] CPT-4: 53740 09/02/2012 OFFICE/OUTPATIENT VISIT EST Diagnosis: TACHYCARDIA[ICD9: 785.0] Diagnosis: SYNCOPE AND COLLAPSE[ICD9: 780.2] Belia REID [facility] CPT-4: 70308 08/04/2012 ([id number]) OFFICE/OUTPATIENT VISIT EST Diagnosis: Loss of consciousness[ICD9: 780.09] Diagnosis: Tachycardia[ICD9: 785.0] Diagnosis: MALAISE AND FATIGUE[ICD9: 780.79] [facility]: 27467 07/21/2012 ([id number]) OFFICE/OUTPATIENT VISIT EST Diagnosis: BRONCHITIS, ACUTE[ICD9: 466.0] Diagnosis: ASTHMA NOS[ICD9: 493.90] Belia POOLE [facility] CPT-4: 74424 07/02/2012 ([id number]) OFFICE/OUTPATIENT VISIT EST Diagnosis: CEPHALGIA[ICD9: 784.0] Belia CORNELLLINE Yuridia Peguero [facility] CPT-4: 12245 06/25/2012 ([id number]) OFFICE/OUTPATIENT VISIT EST Diagnosis: GERD[ICD9: 530.81] Diagnosis: DIARRHEA[ICD9: 787.91] Diagnosis: URINARY TRACT INFECTION[ICD9: 599.0] Diagnosis: ASTHMA NOS[ICD9: 493.90] Diagnosis: ALLERGIC RHINITIS[ICD9: 477.9] Belia Humphriesisabellaotoniel CORNELLBELIA Bushra REID [facility] CPT-4: 91192 06/24/2012 ([id number]) OFFICE/OUTPATIENT VISIT EST Diagnosis: MIGRAINE NOS/NOT INTRCBL[ICD9: 346.90] Diagnosis: TREMOR NEC[ICD9: 333.1] Diagnosis: CHRONIC PAIN SYNDROME[ICD9: 338.4] Belia SALAZAR BushraMayda ANUSHKA [employer] [facility] CPT-4: 27338 05/20/2012 ([id number]) OFFICE/OUTPATIENT VISIT EST Diagnosis: DIZZINESS/VERTIGO[ICD9: 780.4] Diagnosis: PALPITATIONS[ICD9: 785.1] Diagnosis: TREMOR NEC[ICD9: 333.1] Diagnosis: ANXIETY STATE NOS[ICD9: 300.00] Diagnosis: POSTTRAUMATIC STRESS DISORDER[ICD9: 309.81] Belia Zacharynilson BRUNSON BushraMayda ANUSHKA [facility] CPT-4: 70304 05/08/2012 ([id number]) OFFICE/OUTPATIENT VISIT EST Diagnosis: MIGRAINE NOS/NOT INTRCBL[ICD9: 346.90] Diagnosis: FIBROMYALGIA[ICD9: 729.1] Diagnosis: SYNCOPE AND COLLAPSE[ICD9: 780.2] Diagnosis: Diabetic peripheral neuropathy[ICD9: 250.60] Belia Zacharynilson BELIA BushraMayda ANUSHKA [facility] CPT-4: 99394 04/22/2012 OFFICE/OUTPATIENT VISIT EST Diagnosis: ROTATOR CUFF DIS NEC[ICD9: 726.19] Diagnosis: JOINT PAIN-SHLDER[ICD9: 719.41] Diagnosis: DYSPEPSIA[ICD9: 536.8] Belia Zacharynilson BELIA BushraMayda RALF Peguero [employer] [facility] CPT-4: 34625 02/13/2012 ([id number]) OFFICE/OUTPATIENT VISIT EST Diagnosis: MIGRAINE NOS/NOT INTRCBL[ICD9: 346.90] Diagnosis: GERD[ICD9: 530.81] Diagnosis: DYSPEPSIA[ICD9: 536.8] Belia BRUNSON BushraMayda RALF Peguero [employer] [facility] CPT-4: 14654 01/28/2012 OFFICE/OUTPATIENT VISIT EST Diagnosis: CEPHALGIA[ICD9: 784.0] Diagnosis: MIGRAINE NOS/NOT INTRCBL[ICD9: 346.90] Diagnosis: GERD[ICD9: 530.81] Diagnosis: INSOMNIA NOS[ICD9: 780.52] Belia Shi RAND ALBERTO [employer] [facility] CPT-4: 60268 12/26/2011 ([id number]) OFFICE/OUTPATIENT VISIT EST Diagnosis: CEPHALGIA[ICD9: 784.0] Diagnosis: MIGRAINE NOS/NOT INTRCBL[ICD9: 346.90] Diagnosis: MALAISE AND FATIGUE[ICD9: 780.79] Diagnosis: FIBROMYALGIA[ICD9: 729.1] Diagnosis: ALLERGIC RHINITIS[ICD9: 477.9] Belia CORNELLLINE Bushra Mayda ANUSHKA [facility] CPT-4: 87377 11/14/2011 ([id number]) OFFICE/OUTPATIENT VISIT EST Diagnosis: MALAISE AND FATIGUE[ICD9: 780.79] Diagnosis: MUSCLE WEAKNESS-GENERAL[ICD9: 728.87] Diagnosis: MIGRAINE NOS/NOT INTRCBL[ICD9: 346.90] Diagnosis: JOINT PAIN-SHLDER[ICD9: 719.41] Belia Orenilson BRUNSON BushraMayda ANUSHKA [facility] CPT-4: 10560 09/12/2011 ([id number]) OFFICE/OUTPATIENT VISIT EST Diagnosis: CONCUSSION[ICD9: 850.9] Diagnosis: Ataxia[ICD9: 781.3] Diagnosis: DIZZINESS/VERTIGO[ICD9: 780.4] Belia Reid BELIA Bushra Mayda ANUSHKA [facility] CPT-4: 56368 08/15/2011 ([id number]) OFFICE/OUTPATIENT VISIT EST Diagnosis: THROMBOPHLEBITIS[ICD9: 451.9] Diagnosis: Subacromial bursitis[ICD9: 726.19] Diagnosis: ALLERGIC RHINITIS[ICD9: 477.9] Diagnosis: Lipoma[ICD9: 214.9] Belia Humphriesisabellaotoniel HSUBELIA BushraMayda ANUSHKA [facility] CPT-4: 36763 08/09/2011 ([id number]) OFFICE/OUTPATIENT VISIT EST Diagnosis: THROMBOPHLEBITIS[ICD9: 451.9] Diagnosis: Arm pain[ICD9: 729.5] Diagnosis: Clostridium difficile colitis[ICD9: 008.45] Diagnosis: URINARY TRACT INFECTION[ICD9: 599.0] Belia Zacharynilson ARNOLD BushraMayda ANUSHKA [facility] CPT-4: 05903 07/03/2011 ([id number]) OFFICE/OUTPATIENT VISIT EST Diagnosis: ARTHRALGIA-MULTIPLE SITES[ICD9: 719.49] Diagnosis: Muscle cramp[ICD9: 729.82] Diagnosis: INSOMNIA NOS[ICD9: 780.52] [facility] C[facility]: 73131 06/04/2011 OFFICE/OUTPATIENT VISIT EST Diagnosis: Headache[ICD9: 784.0] Diagnosis: Allergic rhinitis[ICD9: 477.9] [facility] CPT-[facility]: 30722 05/03/2011 OFFICE/OUTPATIENT VISIT EST Diagnosis: LUMB/LUMBOSAC DISC DEGEN[ICD9: 722.52] Diagnosis: MIGRAINE NOS/NOT INTRCBL[ICD9: 346.90] Diagnosis: CHRONIC PAIN SYNDROME[ICD9: 338.4] Diagnosis: RESTLESS LEGS SYNDROME[ICD9: 333.94] Belia Zacharynilson ARNOLD Yuridia [facility] CPT-4: 45264 04/05/2011 OFFICE/OUTPATIENT VISIT EST Diagnosis: MIGRAINE NOS/NOT INTRCBL[ICD9: 346.90] Diagnosis: GERD[ICD9: 530.81] Belia HSUQUELINE [facility]Mayda [facility] CPT-4: 00397 03/08/2011 OFFICE/OUTPATIENT VISIT EST Diagnosis: URINARY TRACT INFECTION[ICD9: 599.0] Diagnosis: Vertigo[ICD9: 780.4] Diagnosis: GERD[ICD9: 530.81] Belia Zacharynilson BELIA BushraMayda [facility] CPT-4: 48750 01/24/2011 OFFICE/OUTPATIENT VISIT EST Diagnosis: Hypotension[ICD9: 458.9] Diagnosis: Syncopal episodes[ICD9: 780.2] Diagnosis: MIGRAINE NOS/NOT INTRCBL[ICD9: 346.90] Diagnosis: MALAISE AND FATIGUE[ICD9: 780.79] Belia Zacharynilson Paredes [facility] CPT-4: 09978 01/02/2011 OFFICE/OUTPATIENT VISIT EST Diagnosis: Tinea cruris[ICD9: 110.3] Diagnosis: Intertrigo[ICD9: 695.89] Diagnosis: MIGRAINE NOS/NOT INTRCBL[ICD9: 346.90] Belia COKER BushraMayda [facility] CPT-4: 92600 12/07/2010 OFFICE/OUTPATIENT VISIT EST Diagnosis: PALPITATIONS[ICD9: 785.1] Diagnosis: ANXIETY STATE NOS[ICD9: 300.00] Belia [facility]UNSON [facility] CPT-4: 36723 11/16/2010 OFFICE/OUTPATIENT VISIT EST Diagnosis: URINARY TRACT INFECTION[ICD9: 599.0] Diagnosis: MIGRAINE NOS/NOT INTRCBL[ICD9: 346.90] Iraida CASILLAS UELINE [facility] CPT-4: 02767 11/02/2010 OFFICE/OUTPATIENT VISIT EST Diagnosis: ALLERGIC RHINITIS[ICD9: 477.9] Diagnosis: ANXIETY STATE NOS[ICD9: 300.00] Belia Anushka BRUNSON [facility] CPT-4: 78852 10/18/2010 OFFICE/OUTPATIENT VISIT EST Belia [facility]UNSON [facility] CPT- 4: 88562 09/19/2010 OFFICE/OUTPATIENT VISIT EST Belia BRUNSON [facility] CPT- 4: 36040 09/06/2010 ([id number]) OFFICE/OUTPATIENT VISIT EST Belia Anushka CASILLAS U[facility] CPT-4: 27700 08/10/2010 ([id number]) OFFICE/OUTPATIENT VISIT EST Belia CASILLAS UELINE [facility] CPT-4: 99487 05/11/2010 ([id number]) OFFICE/OUTPATIENT VISIT, EST Belia Anushka MEJIALINE [facility] CPT-4: 63795 04/06/2010 ([id number]) OFFICE/OUTPATIENT VISIT, EST Belia Zacharyisabellaotoniel ARACELIS QUELINE [facility] CPT-4: 88478 02/09/2010 ([id number]) OFFICE/OUTPATIENT VISIT, EST Belia HSU QUELINE [facility] CPT-4: 38831 01/05/2010 ([id number]) OFFICE/OUTPATIENT VISIT, EST Belia HSU QUELINE [facility] CPT-4: 53481 12/07/2009 ([id number]) OFFICE/OUTPATIENT VISIT, EST Belia HSU ROBERTOLINE [facility] CPT-4: 79036 11/08/2009 ([id number]) OFFICE/OUTPATIENT VISIT, RIOS REID DO [facility] CPT-4: 31228 10/24/2009 ([id number]) OFFICE/OUTPATIENT VISIT, EST Belia REID DO [employer] CPT-4: 38850 07/25/2009 ([id number]) OFFICE/OUTPATIENT VISIT, RIOS REID DO [employer] CPT-4: 29252 05/26/2009 Plan of Care Planned Activity Notes [...] Plan: CT HEAD/BRAIN W/O DYE LOINC : 11314-8 Pending 09/02/2019 Visit Diagnosis Plan: Generalized pain [...] Appointment: Belia Reid WPtel: [phone] [id number] ACUTE ILLNESS 08/25/2019 Patient Education: meloxicam- [employer] C[employer] [id number] [email or web address]://[email or web address]/samplemd/resources/getResource/61/[email or web address]-7777-[email or web address] Completed 08/25/2019 Patient Education: baclofen- [employer] C[employer]on [id number] [email or web address]://[email or web address]/WeGreekmd/resources/getResource/61/[email or web address]-qt Completed 08/25/2019 Visit Diagnosis Plan: Yawning Discussion: [...] new home sleep study on patient through [facility] to assess severity of symptoms, patient does wear her oxygen at night though. educated on importance of wearing oxygen at all times, even when in public. ICD-9 : 786.09 ICD-10 : R06.89 08/10/2019 [id number] [facility] 08/10/2019 Visit Diagnosis Plan: [...] ICD-10 : K59.00 08/04/2019 Appointment: Pattie Sotomayor [address] [place] [address] ACUTE ILLNESS 08/04/2019 Visit Diagnosis Plan: Inspiratory stridor Discussion: Continue oxygen via NC at 2 L Continue ativan at QID Follow Up: 4 weeks ICD-9 : 786.1 ICD-10 : R06.1 07/06/2019 Visit Diagnosis Plan: Diarrhea Discussion: Restart Col estid at once daily ICD-9 : 787.91 ICD-10 : R19.7 07/06/2019 Appointment: Belia Reid WPtel: [phone] [place] [id number] TELEMEDICINE 07/06/2019 Visit Diagnosis Plan: Left leg swelling Discussion: Ne [facility] LLE venous doppler--patient states is scheduled [...] 06/24/2019 Appointment: Belia Reid WPtel: [phone] [id number] TELEMEDICINE 06/24/2019 Visit Diagnosis Plan: Acute bronchitis Discussion: Cov er with levaquin Increase SVNs with albuterol to QID Has oxygen using q HS routinely and prn To ER if oxygen levels drop or worsening respiratory symptoms ICD-9 : 466.0 ICD-10 : J20.9 06/16/2019 Visit Diagnosis Plan: Colitis Discussion: Levaquin/[place] gyl [place] Diet ICD-9 : 558.9 ICD-10 : K52.9 06/16/2019 Appointment: Belia Reid WPtel: [address] [place] [address] TELEMEDICINE 06/16/2019 Patient Education: Levaquin- OptimizeRX Coupon [id number] https://www.Donde/Audioscribe/resources/getResource/61/06e97bvm-[email or web address] Completed 06/16/2019 Visit Diagnosis Plan: Diarrhea Discussion: Vancomycin for 10 days and notify if not improving or worsening BLAND diet Hydrate ICD-9 : 787.91 ICD-10 : R19.7 06/08/2019 Appointment: Belia Reid WPtel: [address] [place] [address] TELEMEDICINE 06/08/2019 Visit Diagnosis Plan: Acute febrile illness Discussion : Notify if worsens ICD-9 : 780.60 ICD-10 : R50.9 05/26/2019 Visit Diagnosis Plan: Colitis Discussion: Flagyl plus cipro to cover for both colitis and UTI Notify or to ER if worsening ICD-9 : 558.9 ICD-10 : K52.9 05/26/2019 Appointment: Belia Reid WPtel: [address] [place] [address] TELEMEDICINE 05/26/2019 Appointment: Pattie Sotomayor [address] RESCHEDULED 05/18/2019 Visit Diagnosis Plan: Chronic obstructive pulmonary di sease, unspecified Discussion: Recommend pulmonary rehab Patient states she never went to pulmonary rehab due to cost as well as transportation issues Finish trelagy Stop singulair Decrease hydroxyzine to 25mg po q HS Fwup [address] scan of Chest results discussed ICD-9 : 496 ICD-10 : J44.9 05/13/2019 Appointment: Belia Reid WPtel: [address] [place] [address] Hospital Follow Up 05/13/2019 Visit Diagnosis Plan: COUGH Discussion: Check CT scan of chest ICD-9 : 786.2 ICD-10 : R05 05/06/2019 Visit Diagnosis Plan: Stridor Discussion: Add Trelagy 1 p daily Add Singulair May need to see new natural resource manager ICD-9 : 786.1 ICD-10 : R06.1 05/06/2019 Appointment: Belia Reid WPtel: [address] [place] [address] FOLLOW UP 05/06/2019 Patient Education: Singulair- OptimizeRX Coupon [id number] https://www.Donde/Audioscribe/resources/getResource/61/9639470s-m44r-42w9-xm Completed 05/06/2019 Appointment: Belia Reid WPtel: [address] [place] [address] RESCHEDULED 04/30/2019 Visit Diagnosis Plan: Muscle, jerky [...] : R06.1 04/29/2019 Appointment: Belia Reid WPtel: [address] [place] [address] Hospital Follow Up 04/29/2019 Patient Education: Valium- OptimizeRX Coupon [id number] https://www.Donde/Audioscribe/resources/getResource/61/e71998kc-503l-3u70-8l Completed 04/29/2019 Visit Diagnosis Plan: Weight gain [...] ICD-10 : R10.9 04/16/2019 Appointment: Pattie Sotomayor [address] [place], [place] [phone] ACUTE ILLNESS 04/16/2019 Patient Education: cyclobenzaprine- OptimizeRX Coupon [id number] https://www.Audioscribe.[employer]/samplemd/resources/getResource/61/ky76c0z4-7675-8608-k4 Completed 04/16/2019 Visit Diagnosis Plan: Generalized pruritus Discussion: Hydroxyzine 25mg po TID for itching and anxiety ICD-9 : 698.9 ICD-10 : L29.9 04/08/2019 Visit Diagnosis Plan: Migraine, unspecif ied, not intractable, without status migrainosus Discussion: Increase gabapentin to 600mg po BID ICD-9 : 346.90 ICD-10 : G43.909 04/08/2019 Appointment: Belia Reid WPtel: [address] [place] [address] ACUTE ILLNESS 04/08/2019 Visit Diagnosis Plan: Cervicalgia [...] : M75.52 01/22/2019 Appointment: Belia Reid WPtel: [facility] Hospital Follow Up 01/22/2019 Visit Diagnosis Plan: Abdominal pain Discussion: urine culture sent to assess for any infection. rocephin given in office to cover for pyelonephritis. instructed to push fluids. call office with any new or worsening symptoms. ICD-9 : 789.00 ICD-10 : R10.9 01/07/2019 Appointment: Pattie Sotomayor [address] [place] [address] ACUTE ILLNESS 01/07/2019 Visit Diagnosis Plan: Low back pain Discussion: Stat C T of abdomen/pelvis now ICD-9 : 724.2 ICD-10 : M54.5 12/24/2018 Appointment: Belia Reid WPtel: [address] [place] [address] [place] FOLLOW UP 12/24/2018 Visit Diagnosis Plan: [...] : G43.909 11/20/2018 Appointment: Belia Reid WPtel: [address] [place] [address] ACUTE ILLNESS 11/20/2018 Patient Education: baclofen- OptimizeRX Coupon [id number] https://www.Audioscribe.com/samplemd/resources/getResource/61/1j9275f1-fk3s-96vg-89 Completed 11/20/2018 Visit Diagnosis Plan: Acute sinusitis, [...] or worsening. instructed to follow up with business and marketing teacher since headaches are occurring more frequently to make sure vision is not the cause. ICD-9 : 346.91 ICD-10 : G43.919 11/04/2018 Appointment: Pattie Sotomayor 504 [facility] ACUTE ILLNESS 11/04/2018 Appointment: Belia Reid WPtel: 2[address] [facility] [place] CANCELED 09/24/2018 Visit Diagnosis Plan: Type [...] I10 09/18/2018 Visit Diagnosis Plan: Encounter for [facility] adult medical examination without abnormal [...] E11.65 09/18/2018 Appointment: Belia Reid WPtel: [address] [facility] Annual Well Visit 09/18/2018 Patient Education: gabapentin- OptimizeRX Coupon [id number] https://www.Audioscribe.com/samplemd/resources/getResource/61/0d96lk21-1hy0-8cbs-f6 Completed 09/18/2018 Visit Diagnosis Plan: Pain in [...] ICD-10 : M54.89 09/08/2018 Appointment: Pattie Sotomayor [address] [place], [place] [phone] ACUTE ILLNESS 09/08/2018 Patient Education: prednisone- OptimizeRX Coupon [id number] https://www.Donde/samplemd/resources/getResource/61/1m6dk19t-2550-45s2-ti Completed 09/08/2018 Visit Diagnosis Plan: DM W/O [...] : F43.0 08/20/2018 Appointment: Belia Reid WPtel: [facility]9 [facility]6676[facility] ACUTE ILLNESS 08/20/2018 Patient Education: Lexapro- OptimizeRX Coupon [id number] Completed 08/20/2018 Patient Education: hydroxyzine HCl- OptimizeRX Coupon [id number] Completed 08/20/2018 Care Plan: MAMMOGRAM SCREENING LOINC : 2 6347-5 Pending 08/20/2018 Visit Diagnosis Plan: Paroxysmal atrial fibrillation D iscussion: Discuss eliquis need with cardiology at [facility] due to cost ICD-9 : 427.31 ICD-10 : I48.0 06/19/2018 Visit Diagnosis Plan: Hypotension due to drugs Discuss ion: Discussed decreasing cardizem dose due to low BP and edema but sees cardiology next week Follow Up: 1 months ICD-9 : 458.8 ICD-10 : I95.2 06/19/2018 Appointment: Belia Reidtel: [address] [place], [place] [phone] [place] FOLLOW UP 06/19/2018 Visit Diagnosis Plan: [...] : I10 06/09/2018 Appointment: Belia Reid WPtel: [facility]1 [facility]6676[facility] FOLLOW UP 06/09/2018 Care Plan: CHEST X-RAY 2VW FRONTAL&LATL LOINC : 25943-2 Pending 05/26/2018 Visit Diagnosis Plan: Weakness Discussion: [...] ICD-10 : I47.1 05/21/2018 Appointment: Belia Reidtel: [facility]3 [facility] Hospital Follow Up 05/21/2018 Visit Diagnosis Plan: Cervical disc diso rder with radiculopathy, unspecified cervical region Discussion: Scheduled for surgery on 06/02 10/[address] Faulkner ICD-9 : 722.0 ICD-10 : M50.10 04/16/2018 Appointment: Belia Reid WPtel: [address] [place] [address] Hospital Follow Up 04/16/2018 Visit Diagnosis Plan: [...] ICD-10 : G43.919 04/01/2018 Appointment: Pattie Sotomayor [address] [place] [address] ACUTE ILLNESS 04/01/2018 Appointment: Belia Reid WPtel: [address] [place] [address] 03/17/2018 Visit Diagnosis Plan: Erythema intertrigo Discussio: [...] : J44.1 03/06/2018 Appointment: Belia Reid WPtel: [address] [place] [address] Hospital Follow Up 03/06/2018 Visit Diagnosis Plan: Cervicalgia Discussion: spoke wi th dr. reid about patient. increased gabapentin to bid and started on celebrex bid. tramadrol rx written out to take prn. keep scheduled appt next week for myelogram. ICD-9 : 723.1 ICD-10 : M54.2 02/05/2018 Appointment: Pattie Sotomayor [address] [place] [address] ACUTE ILLNESS 02/05/2018 Care Plan: X-RAY EXAM NECK SPINE 4/5VWS cervical LOINC : 39885-1 Pending 01/21/2018 Visit Diagnosis Plan: Cervicalgia Discussion: [...] ICD-10 : B37.2 01/20/2018 Appointment: Pattie Sotomayor [address] [place] [address] ACUTE ILLNESS 01/20/2018 Visit Diagnosis Plan: Pain in thoracic spine Discussio n: Proceed with CT scan of thoracic spine Will likely need PT ICD-9 : 724.1 ICD-10 : M54.6 12/25/2017 Appointment: Belia Reid WPtel: [address] [place] [address] FOLLOW UP 12/25/2017 Care Plan: CT THORAX W/O DYE LOINC : 473 66-0 Pending 12/25/2017 Visit Diagnosis Plan: Pain in thoracic spine Discussio n: Stretches Alternated heat/ice Topical aspercreme with lidocaine Flexeril Recheck 1 week Flu and Pneumovax given ICD-9 : 724.1 ICD-10 : M54.6 12/17/2017 Appointment: Belia Reid WPtel: [facility] ACUTE ILLNESS 12/17/2017 Patient Education: Patient [...] : J44.1 10/30/2017 Appointment: Belia Reid WPtel: [address] [place], [place] [phone] FOLLOW UP 10/30/2017 Patient Education: Patient Medication Summary Completed 10/30/2017 Visit Diagnosis Plan: Chronic obstructiv e pulmonary disease with acute lower respiratory infection Discussion: Continue SVNs with albuterol q4hrs Add Trelagy 1 inhalation daily Finish steroids Increase water intake Follow Up: 1 weeks ICD-9 : 496 ICD-10 : J44.0 10/23/2017 Appointment: Belia Reid WPtel: [address] [place], [place] [phone] WORK IN 10/23/2017 Patient Education: Patient Medication Summary Completed 10/23/2017 Appointment: Belia Reid WPtel: [address] [place], [place] [phone] NO SHOW 10/16/2017 Visit Diagnosis [...] : E11.65 09/17/2017 Appointment: Belia Reid WPtel: [address] [place], [place] [phone] Annual Well Visit 09/17/2017 Patient Education: Patient Medication Summary Completed 09/17/2017 Appointment: Belia Reid WPtel: [address] [place], [place] [phone] [place] INJECTION 08/26/2017 Patient Education: Patient Medication Summary Completed 08/26/2017 Appointment: Belia Reid WPtel: [address] [id number] [place] CANCELED 07/31/2017 Visit Diagnosis Plan: Encounter [...] ICD-10 : Z13.820 07/19/2017 Appointment: Pattie Sotomayor [address] [place], [place] [phone] ACUTE ILLNESS 07/19/2017 Patient Education: Patient Medication Summary Completed 07/19/2017 Care Plan: MAMMOGRAM SCREENING LOINC : 2 6347-5 Pending 07/19/2017 Patient Education: Patient Medication Summary Completed 06/05/2017 Care Plan: LIPID PANEL LOINC : 60615-2 Pending 06/05/2017 Care Plan: A1C HPLC LOINC : 91583-8 Pending 06/05/2017 Visit Diagnosis Plan: Rash and [...] ICD-10 : R21 05/29/2017 Appointment: Pattie Sotomayor [address] [place] [address] FOLLOW UP 05/29/2017 Patient Education: Patient Medication Summary Completed 05/29/2017 Visit Diagnosis Plan: Diarrhea, unspecified Discussion : Diflucan Cholestyramine Recheck 2weeks ICD-9 : 787.91 ICD-10 : R19.7 05/07/2017 Visit Diagnosis Plan: Tinea corporis Discussion: Diflu can and topical nystatin Follow Up: 2 weeks ICD-9 : 110.5 ICD-10 : B35.4 05/07/2017 Appointment: Belia Reid WPtel: [address] [place] [address] [place] FOLLOW UP 05/07/2017 Patient Education: Patient Medication Summary Completed 05/07/2017 Appointment: Belia Reidtel: [address] [place] [address] US RESCHEDULED 04/30/2017 Visit Diagnosis Plan: Stridor Discussion: Increase Ati van 0.5mg po to TID routinely for next week then can go back to prn ICD-9 : 786.1 ICD-10 : R06.1 03/18/2017 Visit Diagnosis Plan: Chronic obstructiv e pulmonary disease with (acute) exacerbation Discussion: Finish prednisone Continue S VNS with albuterol ICD-9 : 491.21 ICD-10 : J44.1 03/18/2017 Appointment: Belia Reid WPtel: [address] [place] [address] ER Follow UP 03/18/2017 Patient Education: Patient [...] E11.65 02/27/2017 Appointment: [facility]el[facility] [facility] 02/27/2017 Patient Education: Patient [...] ICD-10 : E11.65 02/22/2017 Appointment: Pattie Sotomayor [facility] [employer] [id number] ACUTE ILLNESS 02/22/2017 Patient Education: Patient Medication [...] N39.0 01/23/2017 Appointment: Bel[facility] Reid [facility]Ptel[facility] [facility] 01/23/2017 Patient Education: Patient Medication Summary Completed 01/23/2017 Appointment: Pattie Sotomayor 504 [employer] [id number] CANCELED 01/17/2017 Appointment: Pattie Sotomayor [facility] [employer] [id number] Annual Well Visit 01/14/2017 Visit Diagnosis Plan: Type 2 diabetes mellitus with hy perglycemia Discussion: Check CMP, HbA1C Flu shot and Prevnar 13 given Follow Up: 3 months ICD-9 : 250.02 ICD-10 : E11.65 12/20/2016 Visit Diagnosis Plan: Localized edema Discussion: Low Na diet Compression socks/Elevate feet ICD-9 : 782.3 ICD-10 : R60.0 12/20/2016 Appointment: Belia Reid WPtel: [address] [place], [place] [phone] FOLLOW UP 12/20/2016 Patient Education: Patient Medication Summary Completed 12/20/2016 Patient Education: Patient Medication Summary Completed 10/10/2016 Visit Plan: Xrays of cervical, thoracic and lumbar spine at [facility] for Mobic (stop NSAIDS except Tylenol) and Flexeril UA sent for C&S Using SVN Call in 2-3 days if pain not improved or any worsening 10/08/2016 Appointment: Celeste Ferreira WPtel: [address] [place] [address] ACUTE ILLNESS 10/08/2016 Patient Education: Patient Medication [...] : F51.01 09/19/2016 Appointment: Belia Reid WPtel: [address] [place], [place] [phone] 09/18 confirmed`sl FOLLOW UP 09/19/2016 Patient Education: [...] : G43.909 08/20/2016 Appointment: Belia Reid WPtel: [address] [place], [place] [phone] 08/16 confirmed~sl FOLLOW UP 08/20/2016 Patient Education: [...] : R06.1 06/19/2016 Appointment: Belia Reid WPtel: [address] [place] [address] 06/18 confirmed ~ Hospital Follow Up 06/19/2016 [...] Z87.440 06/04/2016 Appointment: Belia Reid WPtel: [address] [place], [place] [phone] 06/01 confirmed~sl FOLLOW UP 06/04/2016 Patient Education: [...] : N30.90 05/02/2016 Appointment: Belia Reid WPtel: [address] [place], [place] [phone] 05/01 confirmed [facility] Hospital Follow Up 05/02/2016 Patient [...] : M79.7 04/03/2016 Appointment: Belia Reid WPtel: [address] [place], [place] [id number] [facility] 04/03/2016 Patient Education: Patient Medication Summary Completed 04/03/2016 Visit Plan: Lungs are clear Her symptoms and exam are all upper airway restriction/constriction Can try supportive care Rx as above Follow up PRN 02/29/2016 Appointment: Lidia Hwang [address] [place], [place] [phone] ACUTE ILLNESS 02/29/2016 Patient Education: Patient Medication Summary Completed 02/29/2016 Visit Plan: Toradol/Phenergan today for Migraine Change to Clindamycin to cover lactobacillus for UTI Cover with flagyl due to hx of C. Diff 02/02/2016 Appointment: Belia Reid WPtel: [address] [place], [place] [phone] 01/31 confirmed`sl ACUTE ILLNESS 02/02/2016 Patient Education: Patient Medication Summary Completed 02/02/2016 Visit Plan: Increase neurontin to 300mg q AM and 600mg q PM Discussed neurology re-evaluation Flu shot given Need to check on Pneumonia shot Rx written out for albuterol 01/05/2016 Appointment: Belia Reid WPtel: [address] [place], [place] [phone] 01/03 confirmed ~sl Annual Well Visit 01/05/2016 Patient Education: Patient Medication Summary Completed 01/05/2016 Visit Plan: Cipro Culture urine hydrate Flexeril refilled Alternate heat and ice for back Increase gabapentin to 300mg po BID Notify if worsens 12/05/2015 Appointment: Belia Reid WPtel: [address] [place], [place] [phone] 11/30 confirmed~sl ACUTE ILLNESS 12/05/2015 Patient Education: Patient Medication Summary Completed 12/05/2015 Patient Education: Patient Medication Summary Completed 10/27/2015 Care Plan: COMPREH[place]AB[place] : 080[address]-8 Pending 10/27/2015 Care Plan: A1C HPLC LOINC : 42537-1 Pending 10/27/2015 Visit Plan: Lungs are CTA today and is f eeling improved overall Finish meds as ordered Continue inhalers and neb treatments Discussed migraine treatment options She does not feel she needs anything additional added today Refill of Januvia sent since no samples are available today 10/26/2015 Appointment: [facility] [facility] 10/26/2015 Appointment: Lidia Hwang 2305 [facility]6676[facility] CANCELED 10/26/2015 Patient Education: Patient Medication Summary Completed 10/26/2015 Patient Education: Natalia - 18+ - KENNETH - No [place] Completed 10/26/2015 Visit Plan: Office dip still abnormal Cu lture pending Switch to cipro - stop macrobid Push fluids - avoid caffeine Will call with culture results when available Follow up if worsening 10/05/2015 Appointment: Jaiden Lidia 2305 [facility] ER Follow UP 10/05/2015 Patient Education: Patient Medication Summary Completed 10/05/2015 Visit Plan: Proceed with PT for document ation of ROM and strength of all extremities Proceed with Power Mobility Device Trial of neurontin 300mg q HS--lyrica helped but patient unable to afford Recheck 1month 09/15/2015 Appointment: Belia Reid WPtel: [address] [place], [place] [phone] 09/13 confirmed~sl SPECIAL 09/15/2015 Patient Education: Patient Medication Summary Completed 09/15/2015 Visit Plan: Fille out Loan Discharge Pap erwork for total and permanent disability 08/25/2015 Patient Education: Patient Medication Summary Completed 08/25/2015 Visit Plan: Discussed with Dr Anushka Haywood at CT of head Will get last date of carotid doppler from 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 door 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 and update if needed 08/24/2015 Appointment: JaidenLidia [address] [place], [place] [phone] 08/22 confirmed~sl ACUTE ILLNESS 08/24/2015 Patient Education: Patient Medication Summary Completed 08/24/2015 Patient Education: Patient Medication Summary Completed 08/24/2015 Care Plan: US EXAM OF HEAD AND NECK carotid Ultrasound LOIN C : 01729-5 Pending 08/24/2015 Visit Plan: Long discussion about diet A ccuchecks daily Check HbA1C, CMP Change requip to mirapex 07/05/2015 Appointment: Belia Reid WPtel: [address] [place], [place] [phone] 07/03 confirmed ~sl FOLLOW UP 07/05/2015 Patient Education: Patient Medication Summary Completed 07/05/2015 Visit Plan: Add Breo ellipta 100 1 p BID Continue SVNs with duoneb QID 06/06/2015 Appointment: Belia Reid WPtel: [address] [place], [place] [phone] Patient is calling for a ride, then retu rning our call.-sp 06/01 called and patient stated she will know saturday if she can get a ride~sl 06/05 [facility] Follow Up 06/06/2015 Patient Education: Patient [...] not improving 05/23/2015 Appointment: Huong Osborne WPtel: [address] [place], [place] [phone] ACUTE ILLNESS 05/23/2015 Appointment: Lidia Hwang [address] [place], [place] [phone] ER Follow UP 05/23/2015 Patient Education: Patient Medication Summary Completed 05/23/2015 Visit Plan: Check pancreatic enzymes and US of pancreas as patient can't understand why she has diabetes since has no family history Discussed weight, diet, exercise all play an important role in diabetes and are risk factors as well Continue Januvia and accuchecks daily 05/05/2015 Appointment: Belia Reid WPtel: [address] [place], [place] [phone] [place] FOLLOW UP 05/05/2015 Patient Education: Patient Medication Summary Completed 05/05/2015 Care Plan: US EXAM ABDOM COMPLETE LOINC : 26152-8 Ordered 05/05/2015 Visit Plan: Start Januvia 100mg daily [place] with diflucan and culture urine Accuchecks daily alternating times Recheck 6weeks 03/30/2015 Appointment: Belia Reid WPtel: [facility]2 [facility] [place] 03/29 confirmed~lb FOLLOW UP 03/30/2015 Patient Education: Patient Medication Summary Completed 03/30/2015 Appointment: Belia Reid WPtel: [address] [place], [place] [phone] [place] 03/01 needs reschedule due to payment and insurance ~ FOLLOW UP 03/02/2015 Visit Plan: Patient was just in ER last night so has not filled scripts yet Start Carafate and Flagyl and Cipro Add Hyophen 1 po BID Recheck 1mo 02/03/2015 Appointment: Belia Reid WPtel: [address] [place] [address] 02/02lm ~sl...02/03/15 appt confirmed cn ACUTE I LLNESS 02/03/2015 Patient Education: Patient Medication Summary Completed 02/03/2015 Visit Plan: Warm soaks to vaginal area K elex and Diflucan and observe Zofran to use prn 12/29/2014 Appointment: Bleia Reid WPtel: [address] [place] [address] 12/28 Confirmed ~sl ACUTE ILLNESS 12/29/2014 Patient Education: Patient Medication Summary Completed 12/29/2014 Appointment: Huong Osborne WPtel: [address] [place] [address] FOLLOW UP 09/24/2014 Appointment: Belia Reid WPtel: [address] [place] [address] 09/15 confirmed -mf FOLLOW UP 09/16/2014 Visit Plan: Increase requip to 2mg po BI D Increase lyrica to 225mg total a day by adding an extra 75mg in AM Recheck in 2weeks Continue to patch left eye while sleeping 09/02/2014 Appointment: Belia Reid WPtel: [address] [place] [address] 09/01 appt confirmed cn Hospital Follow Up 09/02 Patient Education: Patient Medication Summary Completed 09/02/2014 Visit Plan: To [facility] for observat ion to R/O CVA 08/25/2014 Appointment: Huong Osborne WPtel: [address] [place] [address] ACUTE ILLNESS 08/25/2014 Patient Education: Patient Medication Summary Completed 08/25/2014 Referral: Aaron Jonas WPtel: [facility] [address] [facility], [facility] 1 [id number] [place] In [place] location Initiated 04/26/2014 Referral: Brian Srinivasan WPtel: [address] [facility] [id number] [place] Referral Initiated 04/20/2014 Appointment: Belia Reid WPtel: [address] [place], [place] [phone] ER Follow UP 04/01/2014 Patient Education: Patient Medication Summary Completed 04/01/2014 Care Plan: MYELOGRAPHY NECK SPINE LOINC : 62026-0 Ordered 04/01/2014 Visit Plan: Continue Symbicort 160 at 2p BID Continue SVNs with duoneb at least QID Finish Levaquin Recheck 1mo on lyrica 03/16/2014 Appointment: Belia Reid WPtel: [address] [place], [place] [phone] 03/15 voicemail FOLLOW UP 03/16/2014 Patient Education: Patient Medication Summary Completed 03/16/2014 Visit Plan: Restart SVNs with duoneb QID Repeat prednisone Levaquin Continue symbicort Keep lyrica at same dose Recheck 1week 03/09/2014 Appointment: Belia Reid WPtel: [address] [place], [place] [phone] FOLLOW UP 03/09/2014 Patient Education: Patient Medication Summary Completed 03/09/2014 Appointment: Belia Reid WPtel: [address] [place], [place] [phone] 03/03 showed up 15 minutes late for appt -- put her on Huong's side for 10:45am FORGIVEN PER DR FOLLOW UP 03/03/2014 Appointment: Huong Osborne WPtel: [address] [place], [place] [phone] [place] FOLLOW UP 03/03/2014 Patient Education: Patient Medication Summary Completed 03/03/2014 Appointment: Huong Osborne WPtel: [address] [place], [place] [phone] ER Follow UP 03/01/2014 Patient Education: Patient Medication Summary Completed 03/01/2014 Visit Plan: Add carafate for this next m onth Increase lyrica to 150mg q HS 02/09/2014 Appointment: Belia Reid WPtel: [address] [place], [place] [phone] Hospital Follow Up 02/09/2014 Patient Education: Patient Medication Summary Completed 02/09/2014 Visit Plan: Increase omeprazole back to 40mg po BID Use requip in AM and add lyrica 75mg q HS Recheck 1mo 12/23/2013 Appointment: Belia Reid WPtel: [address] [place], [place] [phone] FOLLOW UP 12/23/2013 Patient Education: Patient Medication Summary Completed 12/23/2013 Patient Education: Patient Medication Summary Completed 12/04/2013 Appointment: Belia Reid WPtel: [address] [place], [place] [phone] [place] [address] 10/30/2013 Patient Education: Patient Medication Summary Completed 10/30/2013 Appointment: Belia Reid WPtel: [address] [place], [place] [phone] [facility] 10/21/2013 Patient Education: Patient Medication Summary Completed 10/21/2013 Visit Plan: Cryotherapy as above TAC and hydroxyzine to use prn to itching spots and itching SKs Add Advair HFA 115/21 1 p BID 10/05/2013 Appointment: Belia Reid WPtel: [address] [place], [place] [phone] 10/01 pt called and confirmed ACUTE ILLNESS Patient Education: Patient Medication Summary Completed 10/05/2013 Appointment: Belia Reid WPtel: [address] [place], [place] [phone] will pay copay and part of past balance FOLLOW U P 08/04/2013 Patient Education: Patient Medication Summary Completed 08/04/2013 Appointment: Belia Reid WPtel: [address] [place], [place] [phone] [place] INJECTION 07/13/2013 Patient Education: Patient Medication Summary Completed 07/13/2013 Appointment: Huong Osborne WPtel: [address] [place], [place] [id number] ACUTE ILLNESS 07/03/2013 Patient Education: Patient Medication Summary Completed 07/03/2013 Visit Plan: Cipro and culture urine 05/27/2013 Appointment: Huong Osborne WPtel: [address] [place], [place] [id number] 05/26 confirmed appt and notified that balance and copyholder y is due at appt time FOLLOW UP 05/27/2013 Patient Education: Patient Medication Summary Completed 05/27/2013 Appointment: Belia Reid WPtel: [address] [place], [place] [phone] [place] UA 05/25/2013 Patient Education: Patient Medication Summary Completed 05/25/2013 Appointment: Belia Reid WPtel: [address] [place], [place] [phone] [place] INJECTION 05/04/2013 Patient Education: Patient Medication Summary Completed 05/04/2013 Appointment: Belia Reid WPtel: [address] [place], [place] [phone] [place] INJECTION 04/17/2013 Patient Education: Patient Medication Summary Completed 04/17/2013 Appointment: Belia Reid WPtel: [address] [place], [place] [phone] [place] INJECTION 04/15/2013 Appointment: Belia Reid WPtel: [address] [place], [place] [phone] [place] 04/02 vm FOLLOW UP 04/06/2013 Patient Education: Patient Medication Summary Completed 04/06/2013 Visit Plan: Obtain lab results including UA from [facility] 11/10/2012 Appointment: Belia Reidtel: [address] [place] [address] ER Follow UP 11/10/2012 Patient Education: Patient Medication Summary Completed 11/10/2012 Appointment: Belia Reid WPtel: [address] [place] [address] 10/30/12 patient canceled appt due to fin ances. Offered to work something out, patient declined-LB FOLLOW UP 11/05/2012 Visit Plan: Continue Bystolic at current dose Pt has fwup with Neurology on September 16 09/02/2012 Appointment: Belia Reid WPtel: [address] [place] [address] FOLLOW UP 09/02/2012 Patient Education: Patient Medication Summary Completed 09/02/2012 Visit Plan: Continue bystolic at 5mg chris ly Sees Neurology tomorrow Use oxygen at bedtime 08/04/2012 Appointment: Belia Reid WPtel: [address] [place] [address] FOLLOW UP 08/04/2012 Patient Education: Patient Medication Summary Completed 08/04/2012 Appointment: Belia Reidtel: [address] [place] [address] Hospital fwup for 07/21/12. merged appointments FOLLOW UP 07/24/2012 Visit Plan: Start Bystolic 5mg daily for tachycardia Fwup with neurology for further workup Overnight O2 sat 07/21/2012 Appointment: Belia Reid WPtel: [address] [place] [address] Hospital Follow Up 07/21/2012 Patient Education: Patient Medication Summary Completed 07/21/2012 Visit Plan: SVN with Albuterol QID Add A velox 400mg daily Notify if worsens or persists 07/02/2012 Appointment: Belia Reid WPtel: [address] [place], [place] [phone] ACUTE ILLNESS 07/02/2012 Patient Education: Patient Medication Summary Completed 07/02/2012 Appointment: Belia Reidtel: [address] [place], [place] [phone] [place] INJECTION 06/25/2012 Patient Education: Patient Medication Summary Completed 06/25/2012 Appointment: Belia Reid WPtel: [address] [place] [address] FOLLOW UP 06/24/2012 Patient Education: Patient Medication Summary Completed 06/24/2012 Appointment: Belia Reid WPtel: [address] [place] [address] 05/19 [facility] FOLLOW UP 05/20/2012 Patient Education: [...] po TID 05/08/2012 Appointment: Belia Reid WPtel: [address] [place] [address] ACUTE ILLNESS 05/08/2012 Patient Education: Patient Medication Summary Completed 05/08/2012 Visit Plan: Continue current meds Contin ue lower dose on pain meds and Diazepam Still waiting on paperwork for botox for Migraines Will restart Neurontin at 600mg po q HS Pt going to stop Depakote due to can't afford 04/22/2012 Appointment: Belia Reidtel: [address] [place] [address] 04/21 Hospital Follow Up 04/22/2012 Patient Education: Patient Medication Summary Completed 04/22/2012 Visit Plan: Injection to shoulder as abo ve Continue current meds Has appointment with neurology on HAs in 02/13/2012 Appointment: Belia Reid WPtel: [address] [place], [place] [phone] Pt does not have $10 copay at [facility] t time - will bring it in next week. Kianna iqbal'ed this. - [place] FOLLOW UP 02/13/2012 Patient Education: Patient Medication Summary Completed 02/13/2012 Visit Plan: Proceed with headache specia list Change nexium to Protonix Phenergan to use prn Sumatriptan to use prn Pt still on Inderal 01/28/2012 Appointment: Belia Reid WPtel: [address] [place], [place] [id number] ER Follow UP 01/28/2012 Patient Education: [...] for sleep 12/26/2011 Appointment: Belia Reid WPtel: [address] [place] [address] 12/24- appt. confirmed FOLLOW UP 2 Patient Education: Patient Medication Summary Completed 12/26/2011 Appointment: Belia Reid WPtel: [address] [place], [place] [phone] [place] FOLLOW UP 11/14/2011 Patient Education: Patient Medication Summary Completed 11/14/2011 Appointment: Belia Reid WPtel: [address] [place], [place] [phone] [place] FOLLOW UP 09/12/2011 Patient Education: Patient Medication Summary Completed 09/12/2011 Visit Plan: Supportive care Decrease Liseth catalino to 50mg q HS Decrease AM dose of Valium to 5mg q HS Use Endocet sparingly 08/15/2011 Appointment: Belia Reid WPtel: [address] [place], [place] [phone] ER Follow UP 08/15/2011 Patient Education: Patient Medication Summary Completed 08/15/2011 Appointment: Belia Reid WPtel: [address] [place], [place] [phone] [place] Spoke directly to patient yesterday and confirmed the appoin tment. cn ACUTE ILLNESS 08/09/2011 Patient Education: Patient Medication Summary Completed 08/09/2011 Appointment: Belia Reid WPtel: [address] [place], [place] [phone] Hospital Follow Up 07/03/2011 Patient Education: Patient Medication Summary Completed 07/03/2011 Appointment: Belia Reid WPtel: [address] [place], [place] [phone] [place] FOLLOW UP 06/04/2011 Patient Education: Patient Medication Summary Completed 06/04/2011 Visit Plan: Pt. wants "allergy shot" but in fact wants steroid shot. Will take a break from "generic Zyrtec they are getting from [facility]" and try Singulair for 2 weeks. 05/03/2011 Appointment: Iraida Jones WPtel: [address] [place] [address] ACUTE ILLNESS 05/03/2011 Patient Education: Patient Medication Summary Completed 05/03/2011 Visit Plan: Neurontin 400mg q HS for 1we ek then 800mg q HS Decrease requip to 1mg q HS for 2wks then stop Fwup 2mos 04/05/2011 Appointment: Belia Reid WPtel: [address] [place], [place] [phone] [place] FOLLOW UP 04/05/2011 Patient Education: Patient Medication Summary Completed 04/05/2011 Visit Plan: Trial of neurontin in 2wks C ontinue current meds for stomach Pt has procedure with Dr. Ortiz next week for stone removal 03/08/2011 Appointment: Belia Reid WPtel: [address] Follow Up 03/08/2011 Patient Education: Patient Medication Summary Completed 03/08/2011 Appointment: Belia Reid WPtel: [address] [place] [address] FOLLOW UP 02/19/2011 Visit Plan: reports increased [...] Flagyl 01/24/2011 Appointment: Iraida Jones WPtel: [address] [place] [address] ACUTE ILLNESS 01/24/2011 Patient Education: Patient Medication Summary Completed 01/24/2011 Appointment: Belia Reid WPtel: [address] [place] [address] FOLLOW UP 01/02/2011 Patient Education: Patient Medication Summary Completed 01/02/2011 Appointment: Belia Reid WPtel: [address] [place] [address] FOLLOW UP 12/12/2010 Appointment: Belia Reid WPtel: [address] [place] [address] ACUTE ILLNESS 12/07/2010 Patient Education: Patient Medication Summary Completed 12/07/2010 Visit Plan: Increase Buspar to 10mg po B ID 11/16/2010 Appointment: Belia Reid WPtel: [address] [place] [address] FOLLOW UP 11/16/2010 Patient Education: Patient Medication Summary Completed 11/16/2010 Appointment: Iraida Jones WPtel: [address] [place] [address] Follow UP 11/02/2010 Patient Education: Patient Medication Summary Completed 11/02/2010 Visit Plan: Depo-Medrol/Kenalog given fo r allergies Add BuSpar for anxiety Oxycodone one p.o. q.i.d. for number 120 refilled 10/18/2010 Appointment: Belia Reidtel: [address] [place] [address] FOLLOW UP 10/18/2010 Patient Education: Patient Medication Summary Completed 10/18/2010 Visit Plan: Continue current meds Discus sed epidurals for back vs PT--will proceed with epidurals to thoracolumbar region to see if helps with pain 09/19/2010 Appointment: Belia Reidtel: [address] [place] [address] FOLLOW UP 09/19/2010 Patient Education: Patient Medication Summary Completed 09/19/2010 Visit Plan: DC MS contin Check CT scan t horacic spine Fwup pending above results 09/06/2010 Appointment: Belia Reidtel: [address] [place] [address] FOLLOW UP 09/06/2010 Patient Education: Patient Medication Summary Completed 09/06/2010 Visit Plan: Continue current meds Restar t MS contin 15mg po BID and use oxycodone prn Use daily senokot-s 2 po BID 08/10/2010 Appointment: Belia Reidtel: [address] [place] [address] [place] FOLLOW UP 08/10/2010 Patient Education: Patient Medication Summary Completed 08/10/2010 Visit Plan: Depomedrol/Kenalog given Pt sees ENT later this month Cont current meds Mammo scheduled 05/11/2010 Appointment: Belia Reidtel: [address] [place] [address] [place] FOLLOW UP 05/11/2010 Patient Education: Patient Medication Summary Completed 05/11/2010 Appointment: Belia Reidtel: [address] [place] [address] [place] UA 05/04/2010 Patient Education: Patient Medication Summary Completed 05/04/2010 Visit Plan: Pt sent to lab for UA 04/28/2010 Appointment: Belia Reidtel: [address] [place], [place] [phone] [facility] 04/28/2010 Patient Education: Patient Medication Summary Completed 04/28/2010 Visit Plan: Check CT angiogram of chest Restart Advair Use proair prn Cont current meds Fwup with Card as schedulec 04/06/2010 Appointment: Belia Reid WPtel: [address] [place] [address] Hospital Follow Up 04/06/2010 Patient Education: Patient Medication Summary Completed 04/06/2010 Visit Plan: Paperwork filled out for pow erchair Depomedrol/kenalog given Pt sees ENT in 2wks to assess nasal obstruction problems 02/09/2010 Appointment: Belia Reid WPtel: [address] [place], [place] [phone] ESTABLISHED PATIENT 02/09/2010 Patient Education: Patient Medication Summary Completed 02/09/2010 Visit Plan: Change Elavil to Trazadone 1 50mg q HS Diflucan and nystatin for tinea cruris 01/05/2010 Appointment: Belia Reid WPtel: [address] [place], [place] [phone] FOLLOW UP 01/05/2010 Patient Education: Patient Medication Summary Completed 01/05/2010 Appointment: Belia Reid WPtel: [address] [place], [place] [phone] FOLLOW UP 12/07/2009 Patient Education: Patient Medication Summary Completed 12/07/2009 Appointment: Belia Reid WPtel: [address] [place], [place] [phone] FOLLOW UP 11/22/2009 Visit Plan: Cont current meds and await MRI results from Dr. Meadows's office and his final recommendations Will need to follow-up at later date on deviated septum 11/08/2009 Appointment: Belia Reid WPtel: [address] [place] [address] FOLLOW UP 11/08/2009 Patient Education: Patient Medication Summary Completed 11/08/2009 Visit Plan: Cont PT/OT See Neurosurgery Cont Tortoise shell brace 10/24/2009 Appointment: Belia Reid WPtel: [address] [place] [address] FOLLOW UP 10/24/2009 Patient Education: Patient Medication Summary Completed 10/24/2009 Appointment: Belia Reid WPtel: [address] [place] [address] Follow Up 10/17/2009 Appointment: Belia Reid WPtel: [address] [place] [address] ACUTE ILLNESS 07/25/2009 Patient Education: Patient Medication Summary Completed 07/25/2009 Appointment: Belia Reid WPtel: [address] [place] [address] FOLLOW UP 05/26/2009 Patient Education: Patient Medication Summary Completed 05/26/2009 Referral: Chino Balderas WPtel: [facility] Referral Initiated Referral: Merry Vale WPtel: [facility] [id number] Vale will review referral and book appointment Completed Referral: Francisco Javier Yoder WPtel: [address] [id number] Patient needs EGD insurance will not inc rease a medication unless this procedure results show a need Completed Referral: Francisco Javier Yoder WPtel: [address] [place] [address] [place] Referral Historical Reference Referral: Francisco Javier [...] last date of 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 Long [...] from "generic Zyrtec they are getting from [facility]" and try Singulair for 2 weeks. . [...]
[2019-09-04 09:55] LABS: BASOPHILS % (AUTO) 0 % (0-10); EOSINOPHILS % (AUTO) 0 % (0-10); HEMATOCRIT 41 % (35-52); HEMOGLOBIN 13.5 G/DL (11.5-16.0); LYMPHOCYTES # (AUTO) 0.9 X 10^3 (1.0-4.0); LYMPHOCYTES % (AUTO) 7 % (12-44); MEAN CORPUSCULAR HEMOGLOBIN 29 PG (25-34); MEAN CORPUSCULAR HGB CONC 33 G/DL (32-36); MEAN CORPUSCULAR VOLUME 88 FL (80-99); MEAN PLATELET VOLUME 10.3 FL (7.4-10.4); MONOCYTES # (AUTO) 0.1 X 10^3 (0.0-1.0); MONOCYTES % (AUTO) 1 % (0-12); NEUTROPHILS # (AUTO) 11.4 X 10^3 (1.8-7.8); NEUTROPHILS % (AUTO) 92 % (42-75); PLATELET COUNT 297 10^3/uL (130-400); WHITE BLOOD COUNT 12.4 10^3/uL (4.3-11.0)
--- NOTE | 2019-09-04 09:57 | ED General ---
General Chief Complaint: Glucose Problems Stated Complaint: HIGH BLOOD GLUCOSE 476 Nursing Triage Note: PT TO ROOM 5 PER W/C PT CO OF ELEVATED BS AND WEAKENSS. PT WAS SEEN IN ED YESTERDAY Nursing Sepsis Screen: No Definite Risk Source of Information: Patient Exam Limitations: No Limitations History of Present Illness Date Seen by Provider: Sep 04, 2019 Time Seen by Provider: 09:27 Initial Comments Patient presents ER by private conveyance from home with chief complaint this morning which she got up he had a piece of pie checked her blood sugar and it was over 400. She was seen in the ER last night and had some findings possibly consistent with a pneumonia on CT and started on Rocephin and azithromycin and apparently steroids as well. She has not picked up any of the medications outpatient. She says she's taken her insulin the same way she always does. She does not have any fever but she reports having a temperature of 100 this morning and it went right back down to 97 before coming in. Nursing reports afebrile on arrival. No cough shortness of breath chills or myalgias. Allergies and Home Medications Allergies Coded Allergies: Penicillins (Unverified Allergy, Severe, Pt has received Cefepime & Ceftriaxone in the past w/o issue, 07/21/18) SWELLING, RASH, ITCHING Sulfa (Sulfonamide Antibiotics) (Verified Allergy, Mild, 07/21/18) RASH aspirin (Verified Adverse Reaction, Mild, ASPIRIN SENSITIVE, 07/21/18) UPSET STOMACH sumatriptan (Verified Adverse Reaction, Mild, PALPITATIONS, 07/21/18) IRRITABLE Home Medications Azithromycin 500 Mg Tablet, 500 MG PO DAILY Prescribed by: PETER ASHLEY on 09/03/191855 Cefdinir 300 Mg Capsule, 300 MG PO BID Prescribed by: PETER ASHLEY on 09/03/191855 Cholecalciferol (Vitamin D3) 125 Mcg Tablet, 250 MCG PO 1800, (Reported) Diltiazem HCl 240 Mg Cap.er.24h, 240 MG PO DAILY, (Reported) Escitalopram Oxalate 10 Mg Tablet, 10 MG PO DAILY, (Reported) LAST FILLED 02-02-2019 #90/90 DAYS SUPPLY Insulin NPH Human Isophane 100 Unit/1 Ml Vial, 25 UNIT SQ BID Prescribed by: NANNETTE REVELES on 06/29/19 1247 Loratadine 10 Mg Tablet, 10 MG PO DAILY Prescribed by: NANNETTE REVELES on 06/29/19 124 Lorazepam 0.5 Mg Tablet, 0.5 MG PO QID Prescribed by: NANNETTE REVELES on 06/29/19 1247 Magnesium Oxide 400 Mg Tablet, 800 MG PO DAILY, (Reported) TAKES 2 (400MG) TABS Melatonin 3 Mg Tablet, 6 MG PO HS PRN for SLEEP, (Reported) TAKES 2 (3MG) TABS Methylprednisolone 4 Mg Tab.ds.pk, 4 MG PO UD PER DOSE PACK INSTRUCTIONS Prescribed by: PETER ASHLEY on 09/03/19 185 Metoprolol Tartrate 50 Mg Tablet, 100 MG PO BID replaces 25mg dose Prescribed by: NANNETTE REVELES on 06/29/19 124 Montelukast Sodium 10 Mg Tablet, 10 MG PO HS Prescribed by: NANNETTE REVELES on 06/29/19 124 Omeprazole 40 Mg Capsule.dr, 40 MG PO BID, (Reported) Pramipexole Di-HCl 1 Mg Tablet, 1 MG PO HS, (Reported) LAST FILLED 02-16-2019 #90/90 DAY SUPPLT Patient Home Medication List Home Medication List Reviewed: Yes Review of Systems Review of Systems Constitutional: No chills, No fever, No malaise EENTM: No ear discharge, No hearing loss, No ear pain Respiratory: No cough, No phlegm, No short of breath Cardiovascular: No chest pain, No edema Gastrointestinal: No abdominal pain, No constipation, No diarrhea, No nausea Genitourinary: No discharge, No dysuria Musculoskeletal: No back pain, No joint pain Past Sfudteo-Lffwqd-Sdnwhv Hx Patient Social History Alcohol Use: Denies Use Recreational Drug Use: No Smoking Status: Never a Smoker 2nd Hand Smoke Exposure: Yes Recent Foreign Travel: No Contact w/Someone Who Travel: No Recent Infectious Disease Expo: No Recent Hopitalizations: No Physical Abuse: No Sexual Abuse: No Immunizations Up To Date Tetanus Booster (TDap): Unknown PED Vaccines UTD: No Date of Pneumonia Vaccine: Apr 04, 2018 Date of Influenza Vaccine: Dec 31, 2018 Seasonal Allergies Seasonal Allergies: Yes Past Medical History Surgeries: Yes (LAP CORNELIUS; C-SPINE FUSION/DISCECTOMY C5-C6 ) Abdominal, Appendectomy, Cardiac, Defibrillator, Eye Surgery, Gallbladder, Hysterectomy, Oophorectomy, Orthopedic, Pacemaker, Tonsillectomy Respiratory: Yes (O2 AT HS AND PRN) Asthma, Pneumonia, Chronic Bronchitis, Sleep Apnea, COPD Currently Using CPAP: No Currently Using BIPAP: No Cardiac: Yes (PACEMAKER/DEFIBRILLATOR;CARDIAC ARREST DURING ENT SURGERY;PSVT/PALPITATIONS) Coronary Artery Disease, High Cholesterol, Hypertension, Irregular Heartbeat Neurological: Yes (PERIPHERAL NEUROPATHY HANDS/FEET; CHRONIC HEADACHES) Headaches /Migraines, Neuropathy 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 Disorders: No Female 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 Disorders: Denies 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 PAIN) Degenerate Disk Disease, Arthritis, Fibromyalgia, Chronic Back Pain, Fractures Endocrine: Yes Diabetes, Insulin dep, Diabetes, Non-Insulin dep HEENT: Yes (S/P BILATERAL CATARACT SURGERY + YAG PROCEDURE;ENT SURG WITH CARDIAC ARREST) Cataract Loss of Vision: Denies Hearing Impairment: Denies Cancer: No Psychosocial: Yes Anxiety, Depression Integumentary: Yes (NELIA INTERTRIGO) Pruritis Blood Disorders: No Adverse Reaction/Blood Tranf: No Family Medical History Alzheimer's disease 19 FATHER Cardiovascular disease 19 FATHER 19 MOTHER Completed stroke 19 MOTHER Hypertension 19 FATHER 19 MOTHER Myocardial infarction 19 FATHER 19 MOTHER No Family History of: Diabetes mellitus PSH: -T12 KYPHOPLASTY -C5-C6 CERVICAL DISCECTOMY WITH FUSION 04/2018 -LAP CORNELIUS FUNDOPLICATION -EGD'S/ESOPHAGEAL DILATIONS/COLONOSCOPIES/POLYPECTOMIES -PACEMAKER/DEFIBRILLATOR -HYSTERECTOMY/BSO -CHOLECYSTECTOMY -APPENDECTOMY -TONSILLECTOMY -OVARIAN CYST SURGERIES X 4 -CYST FROM BACK REMOVED -ENT SURGERY PMH: -CHRONIC NECK PAIN WITH CERVICAL RADICULOPATHY -RESTLESS LEG SYNDROME -CHRONIC BACK PAIN -T12 COMPRESSION WITH KYPHOPLASTY Physical Exam Vital Signs Vital Signs - First Documented 09/04/19 09:25 Temp 36.7 Pulse 86 Resp 22 B/P (MAP) 136/69 (91) Pulse Ox 98 O2 Delivery Nasal Cannula O2 Flow Rate 2.00 Capillary Refill : Less Than 3 Seconds Height, Weight, BMI Height: 5'4.00" Weight: 215lbs. 0oz. [id number]; 40.00 BMI Method:Stated General Appearance: WD/WN, Mild Distress Eyes: Bilateral Eye Normal Inspection, Bilateral Eye PERRL, Bilateral Eye EOMI HEENT: PERRL/EOMI, TMs Normal, Normal ENT Inspection, Pharynx Normal, Moist Mucous Membranes Neck: Full Range of Motion, Normal Inspection, Non Tender, Supple Respiratory: Lungs Clear, Normal Breath Sounds, No Accessory Muscle Use, No Re spiratory Distress Cardiovascular: Regular Rate, Rhythm, No Edema, Normal Peripheral Pulses Gastrointestinal: Normal Bowel Sounds, Non Tender, Soft Extremity: Normal Capillary Refill, Normal Inspection Neurologic/Psychiatric: Alert, Oriented x3, No Motor/Sensory Deficits, 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, painter and body work II-XII Norm as Tested Reflexes: 2+ Ankle (R), 2+ Ankle (L) Skin: Normal Color, Warm/Dry Procedures/Interventions Date of ETT Placement: Apr 21, 2018 Time of ETT Placement: 1743 Progress/Results/Core Measures Suspected Sepsis Recent Fever Within 48 Hours: No Infection Criteria Present: None New/Unexplained Altered Menta: No Sepsis Screen: No Definite Risk SIRS Temperature: Pulse: 86 Respiratory Rate: 22 Laboratory Tests 09/04/19 09:25: White Blood Count 12.4H Blood Pressure 136 /69 Mean: 91 Laboratory Tests 09/04/19 09:25: Creatinine 1.13, Platelet Count 297, Total Bilirubin 0.3 Results/Orders Lab Results Laboratory Tests Test 09/04/19 09:25 09/04/19 09:27 09/04/19 10:07 09/04/19 10:47 Range/Units White Blood Count 12.4 H 4.3-11.0 10^3/uL Red Blood Count 4.64 4.35-5.85 10^6/uL Hemoglobin 13.5 11.5-16.0 G/DL Hematocrit 41 35-52 % Mean Corpuscular Volume 88 80-99 FL Mean Corpuscular Hemoglobin 29 25-34 PG Mean Corpuscular Hemoglobin Concent 33 32-36 G/DL Red Cell Distribution Width 14.0 10.0-14.5 % Platelet Count 297 130-400 10^3/uL Mean Platelet Volume 10.3 7.4-10.4 FL Neutrophils (%) (Auto) 92 H 42-75 % Lymphocytes (%) (Auto) 7 L 12-44 % Monocytes (%) (Auto) 1 0-12 % Eosinophils (%) (Auto) 0 0-10 % Basophils (%) (Auto) 0 0-10 % Neutrophils # (Auto) 11.4 H 1.8-7.8 X 10^3 Lymphocytes # (Auto) 0.9 L 1.0-4.0 X 10^3 Monocytes # (Auto) 0.1 0.0-1.0 X 10^3 Eosinophils # (Auto) 0.0 0.0-0.3 10^3/uL Basophils # (Auto) 0.0 0.0-0.1 10^3/uL Neutrophils % (Manual) 90 % Lymphocytes % (Manual) 8 % Monocytes % (Manual) 2 % Sodium Level 135 135-145 MMOL/L Potassium Level 3.8 3.6-5.0 MMOL/L Chloride Level 99 98-107 MMOL/L Carbon Dioxide Level 20 L 21-32 MMOL/L Anion Gap 16 H 5-14 MMOL/L Blood Urea Nitrogen 20 H 7-18 MG/DL Creatinine 1.13 0.60-1.30 MG/DL Estimat Glomerular Filtration Rate 47 BUN/Creatinine Ratio 18 Glucose Level 571 *H 70-105 MG/DL Calcium Level 9.4 8.5-10.1 MG/DL Corrected Calcium 9.3 8.5-10.1 MG/DL Total Bilirubin 0.3 0.1-1.0 MG/DL Aspartate Amino Transf (AST/SGOT) 19 5-34 U/L Alanine Aminotransferase (ALT/SGPT) 27 0-55 U/L Alkaline Phosphatase 130 40-136 U/L Total Protein 7.3 6.4-8.2 GM/DL Albumin 4.1 3.2-4.5 GM/DL Lipase 9 8-78 U/L Glucometer 514 *H 415 *H 70-110 MG/DL Blood Gas Puncture Site RIGHT RADIAL Blood Gas Patient Temperature 36.7 Arterial Blood pH 7.41 7.37-7.43 Arterial Blood Partial Pressure CO2 39 35-45 MMHG Arterial Blood Partial Pressure O2 103 H 79-93 MMHG Arterial Blood HCO3 24 23-27 MMOL/L Arterial Blood Total CO2 25.3 21.0-31.0 MMOL/L Arterial Blood Oxygen Saturation 99 94-100 % Arterial Blood Base Excess 0.0 -2.5-2.5 MMOL/L Manjit Test YES-POS Blood Gas Ventilator Setting NO Blood Gas Inspired Oxygen 3 Test 09/04/19 10:56 09/04/19 13:19 09/04/19 14:16 Range/Units Urine Color YELLOW Urine Clarity CLEAR Urine pH 5.5 5-9 Urine Specific [place] 1.010 L 1.016-1.022 Urine Protein NEGATIVE NEGATIVE Urine Glucose (UA) 3+ H NEGATIVE Urine Ketones 2+ H NEGATIVE Urine Nitrite NEGATIVE NEGATIVE Urine Bilirubin NEGATIVE NEGATIVE Urine Urobilinogen 0.2 < = 1.0 MG/DL Urine Leukocyte Esterase NEGATIVE NEGATIVE Urine RBC (Auto) NEGATIVE NEGATIVE Urine RBC RARE /HPF Urine WBC RARE /HPF Urine Squamous Epithelial Cells RARE /HPF Urine Crystals NONE /LPF Urine Bacteria NEGATIVE /HPF Urine Casts NONE /LPF Urine Mucus NEGATIVE /LPF Urine Culture Indicated NO Glucometer 309 H 284 H 70-110 MG/DL My Orders Orders - ISRAEL ODELL Accucheck Stat ONCE (09/04/19 09:43) Insulin (Regular) Human (Novolin R (Per (09/04/19 10:00) Cbc With Automated Diff (09/04/19 09:47) Comprehensive Metabolic Panel (09/04/19 09:47) Ua Culture If Indicated (09/04/19 09:47) Lipase (09/04/19 09:47) Chest 1 View, Ap/Pa Only (09/04/19 09:47) Manual Differential (09/04/19 09:25) Arterial Blood Gas (09/04/19 10:08) Insulin (Regular) Human (Novolin R (Per (09/04/19 12:45) Ketorolac Injection (Toradol Injection) (09/04/19 12:45) Diphenhydramine Tablet (Benadryl Tablet) (09/04/19 12:45) Ns Iv 1000 Ml (Sodium Chloride 0.9%) (09/04/19 12:42) Insulin (Regular) Human (Novolin R (Per (09/04/19 13:45) Ed Iv/Invasive Line Start (09/04/19 13:42) Ns Iv 1000 Ml (Sodium Chloride 0.9%) (09/04/19 13:42) Ns Iv 1000 Ml (Sodium Chloride 0.9%) (09/04/19 13:41) Arterial Blood Draw (09/04/19 ) Medications Given in ED Current Medications Medications Dose Ordered Sig/Alannah Route Start Time Stop Time Status Last Admin Dose Admin Diphenhydramine HCl 25 mg ONCE ONCE PO 09/04/19 12:45 09/04/19 12:46 DC 09/04/19 12:52 25 MG Insulin Human Regular 10 unit ONCE ONCE SC 09/04/19 10:00 09/04/19 10:01 DC 09/04/19 10:06 10 UNIT Insulin Human Regular 10 unit ONCE ONCE SC 09/04/19 13:45 09/04/19 13:46 DC 09/04/19 13:48 10 UNIT Insulin Human Regular 15 unit ONCE ONCE SC 09/04/19 12:45 09/04/19 12:46 DC 09/04/19 12:52 15 UNIT Ketorolac Tromethamine 30 mg ONCE ONCE IVP 09/04/19 12:45 09/04/19 12:46 DC 09/04/19 12:52 30 MG Sodium Chloride 1,000 ml @ STK-MED ONCE .ROUTE 09/04/19 12:42 09/04/19 12:45 DC 09/04/19 12:46 1,000 MLS/HR Vital Signs/I&O 09/04/19 09:25 Temp 36.7 Pulse 86 Resp 22 B/P (MAP) 136/69 (91) Pulse Ox 98 O2 Delivery Nasal Cannula O2 Flow Rate 2.00 Capillary Refill : Less Than 3 Seconds Blood Pressure Mean: 91 Point of Care Testing Finger Stick Blood Glucose: 514 Blood Glucose Action Taken: REPORTED TO DR ODELL Progress Note #1: Time: 12:42 Progress Note Review of her record shows she received steroids last night as well as antibiotics. We've encouraged her not to continue taking the steroids. Plan is to get her blood sugar down warm put some fluids in her. She's got some borderline acidemia and still looks a little bit dry after couple liters. Progress Note #2: Time: 14:33 Progress Note Her second liter fluids patient's symptoms are much better. Her blood sugar is now under 300. Plan to allow her to discharge home. Departure Impression Primary Impression: Steroid-induced hyperglycemia Additional Impression: Dehydration Disposition: 01 HOME, SELF-CARE Condition: Improved Departure-Patient Inst. Decision time for Depature: 14:15 Referrals: NANNETTE REVELES DO (PCP/Family) Primary Care Physician Patient Instructions: Hyperglycemia, Adult (DC) Add. Discharge Instructions: Do not continue to use the steroids. Continue to use your insulin as prescribed. Drink plenty of fluids. Continue to take the antibiotics as prescribed last night. Plan to follow up next week with your Primary care provider. Return to the ER if you have worsening symptoms. All discharge instructions reviewed with patient and/or family. Voiced understanding. ISRAEL ODELL Sep 04, 2019 09:57
[2019-09-04 09:59] LABS: ALBUMIN 4.1 GM/DL (3.2-4.5); POTASSIUM 3.8 MMOL/L (3.6-5.0)
[2019-09-04 10:00] LABS: CALCIUM 9.4 MG/DL (8.5-10.1)
[2019-09-04] MEDS ORDERED: inSUlin (REGULAR) HUMAN 1 UNIT/0.01 ML (CHARGE PER UNIT) SC ONE ×3 (10:00→13:45)
[2019-09-04 10:01] LABS: TOTAL PROTEIN 7.3 GM/DL (6.4-8.2)
[2019-09-04 10:03] LABS: BILIRUBIN,TOTAL 0.3 MG/DL (0.1-1.0)
[2019-09-04 10:05] LABS: CREATININE SERUM 1.13 MG/DL (0.60-1.30)
[2019-09-04 10:07] LABS: NEUTROPHILS % (MANUAL) 90 %
--- NOTE | 2019-09-04 10:08 | Diagnostic Imaging Report ---
INDICATION: Weakness and elevated blood sugar. TIME OF EXAM: 9:56 AM Correlation is made with prior chest 09/03/2019. FINDINGS: Cardiac defibrillator remains in place. Heart size is stable. The lungs are clear. No infiltrates are seen. There is no evidence of congestive failure. No effusion or pneumothorax is seen. IMPRESSION: No acute cardiopulmonary process is detected. Dictated by: Dictated on workstation # [id number]
[2019-09-04 10:09] LABS: LYMPHOCYTES % (MANUAL) 8 %; MONOCYTES % (MANUAL) 2 %
--- NOTE | 2019-09-04 10:10 | NUR ---
LAB CALLED [id number] ODELL
[2019-09-04 10:16] LABS: ABG OXYGEN SATURATION 99 % (94-100); ABG PCO2 39 MMHG (35-45); ABG PH 7.41 (7.37-7.43); ABG PO2 103 MMHG (79-93); ABG TCO2 25.3 MMOL/L (21.0-31.0); ALLENS TEST YES-POS; INSPIRED O2 3; VENTILATOR NO
[2019-09-04 10:17] LABS: PATIENT TEMP 36.7
[2019-09-04 11:04] LABS: BILIRUBIN,URINE NEGATIVE (NEGATIVE); CLARITY,URINE CLEAR; COLOR,URINE YELLOW; GLUCOSE, URINE (UA) 3+ (NEGATIVE); KETONES,URINE 2+ (NEGATIVE); LEUKOCYTE ESTERASE ,URINE NEGATIVE (NEGATIVE); NITRITE,URINE NEGATIVE (NEGATIVE); PH,URINE 5.5 (5-9); PROTEIN,URINE NEGATIVE (NEGATIVE)
[2019-09-04 11:10] LABS: BACTERIA,URINE NEGATIVE /HPF; RBC,URINE RARE /HPF; SQUAMOUS EPITHELIAL CELL,UR RARE /HPF; WBC,URINE RARE /HPF
[2019-09-04] MEDS ORDERED: NS IV 1000 ML 1,000 ML ONE ×2 (12:42→13:41)
[2019-09-04] MEDS ORDERED: diphenhydrAMINE 25 MG TAB (BENADRYL) PO ONE (12:45)
[2019-09-04] MEDS ORDERED: KETOROLAC 30 MG/ML VIAL IVP ONE (12:45)
[2019-09-04] MEDS ORDERED: NS IV 1000 ML 1,000 ML IV SCH (13:42)
[2019-09-04 15:06] VITALS: BP 122/77
== END 2019-09-04 15:10 | disposition home or self-care (01) ==
LOC: EDUNIT# 09:19 → ER 09:20
DX: T38.0X5A Adverse effect of glucocorticoids and synthetic analogues, initial encounter (principal); E09.65 Drug or chemical induced diabetes mellitus with hyperglycemia; E86.0 Dehydration; J44.9 Chronic obstructive pulmonary disease, unspecified; Z88.0 Allergy status to penicillin; I10 Essential (primary) hypertension; I25.10 Atherosclerotic heart disease of native coronary artery without angina pectoris; K21.9 Gastro-esophageal reflux disease without esophagitis; F41.9 Anxiety disorder, unspecified; F32.9 Major depressive disorder, single episode, unspecified; Z88.2 Allergy status to sulfonamides; Z88.6 Allergy status to analgesic agent; Z88.8 Allergy status to other drugs, medicaments and biological substances; Z79.4 Long term (current) use of insulin; Z77.22 Contact with and (suspected) exposure to environmental tobacco smoke (acute) (chronic); Z95.810 Presence of automatic (implantable) cardiac defibrillator; Z82.49 Family history of ischemic heart disease and other diseases of the circulatory system
CPT/HCPCS: 36415; 36600; 71045; 80053; 81000; 82805; 82962; 83690; 85007; 85027; 96361; 96372; 96374

== ENCOUNTER → 2019-09-15 | Outpatient (CLI) | payer MEDICARE ==
[~2019-09-15] VITALS: Ht 167 cm; Wt 103.0 kg
[~2019-09-15] MED LIST changes: +CATHETER FLUSH 10 ML SYR IV PRN; +REGADENOSON 0.4 MG/5 ML SYR (LEXISCAN) IV ONE
[2019-09-15 08:40] VITALS: BP 150/69
--- NOTE | 2019-09-15 12:36 | STRESS TEST ---
DATE OF SERVICE: 09/15/2019 RESTING AND POST REGADENOSON TECHNETIUM-99M TETROFOSMIN SPECT CT IMAGING ORDERING PHYSICIAN: Dr. Alexi Cerda. PRIMARY PHYSICIAN: Dr. Reid. CLINICAL DIAGNOSES: Shortness of breath, weakness. Baseline images were carried out after injection of 10.06 mCi of technetium-99m Tetrofosmin. This was followed by 0.4 mg regadenoson and 31.2 mCi of technetium-99m Tetrofosmin for stress imaging. The electrocardiogram showed sinus rhythm at baseline. The electrocardiogram did not change significantly with the regadenoson infusion. The patient noted shortness of breath following regadenoson infusion, which resolved in a few minutes. Review of images at rest and following stress indicates a small transient apical perfusion defect. Gated images show normal global left ventricular systolic function with normal regional wall motion. Left ventricular ejection fraction is calculated to be 65%. Left ventricular end diastolic volume is 65 mL. TID is absent (1.17). CONCLUSIONS: 1. This study is suggestive of a small amount of apical ischemia. 2. Normal regional wall motion. 3. Normal global left ventricular systolic function with an ejection fraction of 65%. 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
== END ==
LOC: CARD 07:34
PROVIDERS: ATTEND Internal Medicine Cardiovascular Disease
DX: J44.9 Chronic obstructive pulmonary disease, unspecified (principal); G47.33 Obstructive sleep apnea (adult) (pediatric); I77.89 Other specified disorders of arteries and arterioles; R53.1 Weakness
CPT/HCPCS: 78452; 93017; A9502

== ENCOUNTER → 2019-09-18 | Outpatient (CLI) | payer MEDICARE ==
[~2019-09-18] MED LIST changes: +ALBU0.63 IH; +ASPI-999 PO; -CATHETER FLUSH 10 ML SYR IV PRN; +HYDR-700 PO; -REGADENOSON 0.4 MG/5 ML SYR (LEXISCAN) IV ONE
== END ==
LOC: CARD 09:07
PROVIDERS: ATTEND Internal Medicine Cardiovascular Disease
DX: I35.8 Other nonrheumatic aortic valve disorders (principal); G47.33 Obstructive sleep apnea (adult) (pediatric); J44.9 Chronic obstructive pulmonary disease, unspecified; I65.23 Occlusion and stenosis of bilateral carotid arteries
CPT/HCPCS: 93306

== ENCOUNTER → 2019-10-09 | Outpatient (CLI) | payer MEDICARE ==
--- NOTE | 2019-10-09 11:03 | Diagnostic Imaging Report ---
Indication: Dysphasia and cough. Study was performed in conjunction with speech pathology. Video fluoroscopy was performed during swallowing of barium at multiple consistencies. Total of 58 seconds of fluoroscopic time was utilized. Patient ingested thin, puree, barium banana, ground meat and cracker consistency. Oral phase unremarkable. There is normal epiglottic tilt and laryngeal elevation. No penetration or aspiration was observed. IMPRESSION: Unremarkable modified barium swallow. Dictated by: Dictated on workstation # [id number]
== END ==
LOC: RAD 09:32
PROVIDERS: ATTEND Nurse Practitioner Family
DX: R13.10 Dysphagia, unspecified (principal); R05 Cough; R91.8 Other nonspecific abnormal finding of lung field
CPT/HCPCS: 74230

== ENCOUNTER 2019-12-10 17:40 | Emergency (ER) | payer MEDICARE ==
[~2019-12-10] VITALS: Ht 157 cm; Wt 90.0 kg
[~2019-12-10 17:40] MED LIST changes: +ASPI-1238 PO; -ASPI-983 PO; -PANT40TA3 PO; +PANT40TA52 PO
--- NOTE | 2019-12-10 18:20 | NUR ---
ATTEPT X3 FOR IV.
--- NOTE | 2019-12-10 18:50 | ED Cough/URI ---
General Chief Complaint: Respiratory Problems Stated Complaint: COPD/COUGH/FEVER/SOA Nursing Triage Note: TO ROOM 10 VIA AMB WITH CANE IN COVID PRECAUTIONS. MULTIPLE COMPLAINTS INCLUDING BUT LIMITED TO CHRONIC SOA, FEVER OFF AND ON X1 WEEK, ABD PAIN, WEAKNESS, AND COUGH. Sepsis Screen: No Definite Risk Source: patient, old records History of Present Illness Date Seen by Provider: Dec 10, 2019 Time Seen by Provider: 18:39 Initial Comments PT ARRIVES VIA POV FROM HOME PT WITH MULTITUDE OF COMPLAINTS STATES SHE HAS BEEN SICK FOR A WEEK C/O CHRONIC SHORTNESS OF BREATH--WEARS HOME O2 AT 2L/NC CONTINUOUSLY, BUT DOES NOT BRING HOME O2 WITH HER. STATES SHE DOES HAVE HOME PULSE OXIMETER, AND O2 SATS HAD BEEN IN UPPER 90'S MOST OF THE TIME. 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 HAS NOT SOUGHT CARE UNTIL TONIGHT, SYMPTOMS NO DIFFERENT TONIGHT, HAS NOT TAKEN ANYTHING FOR SYMPTOMS PCP: DR. REVELES Allergies and Home Medications Allergies Coded Allergies: Penicillins (Unverified Allergy, Severe, Pt has received Cefepime & C eftriaxone in the past w/o issue, 09/22/19) SWELLING, RASH, ITCHING Sulfa (Sulfonamide Antibiotics) (Verified Allergy, Mild, 09/22/19) RASH aspirin (Verified Adverse Reaction, Mild, ASPIRIN SENSITIVE, 09/22/19) UPSET STOMACH sumatriptan (Verified Adverse Reaction, Mild, PALPITATIONS, 09/22/19) IRRITABLE Home Medications Albuterol Sulfate 0.63 Mg/3 Ml Vial.neb, 0.63 MG IH Q6H PRN for WHEEZING, (Reported) Aspirin 81 Mg Tab.chew, 81 MG PO DAILY, (Reported) Azithromycin 500 Mg Tablet, 500 MG PO DAILY Prescribed by: PETER ASHLEY on 12/10/191935 Benzonatate 100 Mg Capsule, 100-200 MG PO TID Prescribed by: PETER ASHLEY on 12/10/191935 Cefdinir 300 Mg Capsule, 300 MG PO BID Prescribed by: PETER ASHLEY on 12/10/191935 Cholecalciferol (Vitamin D3) 125 Mcg Tablet, 250 MCG PO 1800, (Reported) Dexamethasone 6 Mg Tablet, 6 MG PO DAILY Prescribed by: PETER ASHLEY on 12/10/191935 Diltiazem HCl 240 Mg Cap.er.24h, 240 MG PO DAILY, (Reported) Guaifenesin/Dextromethorphan 1 Each Tbmp.12hr, 1 EACH PO BID Prescribed by: PETER ASHLEY on 12/10/191935 Hydroxyzine HCl 25 Mg Tablet, 25 MG PO for ANXIETY, (Reported) Insulin NPH Human Isophane 100 Unit/1 Ml Vial, 25 UNIT SQ BID Prescribed by: NANNETTE REVELES on 06/29/191246 Lorazepam 0.5 Mg Tablet, 0.5 MG PO QID Prescribed by: NANNETTE REVELES on 06/29/191246 Magnesium Oxide 400 Mg Tablet, 800 MG PO DAILY, (Reported) TAKES 2 (400MG) TABS Melatonin 3 Mg Tablet, 6 MG PO HS PRN for SLEEP, (Reported) TAKES 2 (3MG) TABS Metoprolol Tartrate 50 Mg Tablet, 100 MG PO BID replaces 25mg dose Prescribed by: NANNETTE REVELES on 06/29/191246 Montelukast Sodium 10 Mg Tablet, 10 MG PO HS Prescribed by: NANNETTE REVELES on 06/29/191246 Omeprazole 40 Mg Capsule.dr, 40 MG PO BID, (Reported) Pramipexole Di-HCl 1 Mg Tablet, 1 MG PO HS, (Reported) LAST FILLED 02-16-2019 #90/90 DAY SUPPLT Patient Home Medication List Home Medication List Reviewed: Yes Review of Systems Review of Systems Constitutional: see HPI, fever, malaise, weakness EENTM: see HPI, throat pain Respiratory: see HPI, cough; No phlegm; short of breath Cardiovascular: no symptoms reported; No chest pain, No edema, No palpitations Gastrointestinal: see HPI, abdominal pain, diarrhea, loss of appetite; No nausea, No vomiting Past Mpjsdan-Toxhtm-Ryfbop Hx Patient Social History Alcohol Use: Denies Use Recreational Drug Use: No Smoking Status: Unknown if Ever Smoked 2nd Hand Smoke Exposure: Yes Recent Foreign Travel: No Contact w/Someone Who Travel: No Recent Infectious Disease Expo: No Recent Hopitalizations: No Immunizations Up To Date Tetanus Booster (TDap): Unknown PED Vaccines UTD: No Date of Pneumonia Vaccine: Apr 04, 2018 Date of Influenza Vaccine: Dec 31, 2018 Seasonal Allergies Seasonal Allergies: Yes Past Medical History Surgeries: Yes (LAP CORNELIUS; C-SPINE FUSION/DISCECTOMY C5-C6 ) Abdominal, Appendectomy, Cardiac, Defibrillator, Eye Surgery, Gallbladder, Hysterectomy, Oophorectomy, Orthopedic, Pacemaker, Tonsillectomy Respiratory: Yes (O2 AT 2L/NC CONTINUOUSLY) Asthma, Pneumonia, Chronic Bronchitis, Sleep Apnea, COPD Currently Using CPAP: No Currently Using BIPAP: No Cardiac: Yes (PACEMAKER/DEFIBRILLATOR;CARDIAC ARREST DURING ENT SURGERY;PSVT/PALPITATIONS) Atrial Fibrillation, Chronic Edema/Swelling, Coronary Artery Disease, High Cholesterol, Hypertension, Irregular Heartbeat Neurological: Yes (PERIPHERAL NEUROPATHY HANDS/FEET; CHRONIC HEADACHES) Headaches /Migraines, Neuropathy, TIA 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 Disorders: No Female 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 Disorders: 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 PAIN) Degenerate Disk Disease, Arthritis, Fibromyalgia, Chronic Back Pain, Fractures Endocrine: Yes Diabetes, Insulin dep, Diabetes, Non-Insulin dep HEENT: Yes (S/P BILATERAL CATARACT SURGERY + YAG PROCEDURE;ENT SURG WITH CARDIAC ARREST) Cataract Loss of Vision: Denies Hearing Impairment: Denies Cancer: No Psychosocial: Yes Anxiety, Depression Integumentary: Yes (NELIA INTERTRIGO) Pruritis Blood Disorders: No Adverse Reaction/Blood Tranf: No Family Medical History Alzheimer's disease 19 FATHER Cardiovascular disease 19 FATHER 19 MOTHER Completed stroke 19 MOTHER Hypertension 19 FATHER 19 MOTHER Myocardial infarction 19 FATHER 19 MOTHER No Family History of: Diabetes mellitus PSH: -T12 KYPHOPLASTY -C5-C6 CERVICAL DISCECTOMY WITH FUSION 04/2018 -LAP CORNELIUS FUNDOPLICATION -EGD'S/ESOPHAGEAL DILATIONS/COLONOSCOPIES/POLYPECTOMIES -PACEMAKER/DEFIBRILLATOR -HYSTERECTOMY/BSO -CHOLECYSTECTOMY -APPENDECTOMY -TONSILLECTOMY -OVARIAN CYST SURGERIES X 4 -CYST FROM BACK REMOVED -ENT SURGERY -BILATERAL CARPAL TUNNEL REPAIR PMH: -CHRONIC NECK PAIN WITH CERVICAL RADICULOPATHY -RESTLESS LEG SYNDROME -CHRONIC BACK PAIN -T12 COMPRESSION WITH KYPHOPLASTY -HAS HAD POST OP RESPIRATORY FAILURE IN PAST -HAD CARDIAC ARREST WITH ENT SURGERY -CAROTID DISEASE--40-50% STENOSIS BILAT ICA -PAROXYSMAL A FIB--HAS REFUSED ORAL ANTICOAGULANTS -HX OF V-FIB AND BRADYCARDIA--S/P PACEMAKER/DEFIBRILLATOR -08/23/19--CARDIAC CATH--NO SIGNIFICANT CORONARY ARTERY DISEASE, EF 50% Physical Exam Vital Signs - First Documented 12/10/19 18:00 Temp 37.0 Pulse 80 Resp 18 B/P (MAP) 116/57 (76) Pulse Ox 94 O2 Delivery Room Air Capillary Refill : Less Than 3 Seconds Height: 5'4.00" Weight: 215lbs. 0oz. 97.795726px; 36.00 BMI Method:Stated General Appearance: no apparent distress, obese, other (NO ACUTE DISTRESS, DOES NOT APPEAR ILL, NO DYSPNEA, NO COUGH. 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, no motor/sensory deficits, alert, normal mood/affect, oriented x 3 Skin: normal color, warm/dry; No rash Focused Exam Lactate Level 12/10/19 18:00: Lactic Acid Level 2.95*H Lactic Acid Level Laboratory Tests Test 10/8/20 18:00 Lactic Acid Level 2.95 MMOL/L (0.50-2.00) *H Procedures/Interventions Date of ETT Placement: Apr 21, 2018 Time of ETT Placement: 1744 Progress/Results/Core Measures Suspected Sepsis Recent Fever Within 48 Hours: Yes Infection Criteria Present: Suspected New Infection New/Unexplained Altered Menta: No Sepsis Screen: No Definite Risk SIRS Temperature: Pulse: 80 Respiratory Rate: 18 Laboratory Tests 12/10/19 18:00: White Blood Count 13.1H Blood Pressure 116 /57 Mean: 76 12/10/19 18:00: Lactic Acid Level 2.95*H Laboratory Tests 12/10/19 18:00: Creatinine 1.06, Platelet Count 280, Total Bilirubin 0.2 12/10/19 19:27: INR Comment 0.9 Results/Orders Lab Results Laboratory Tests Test 12/10/19 18:00 12/10/19 18:10 12/10/19 19:10 12/10/19 19:27 Range/Units White Blood Count 13.1 H 4.3-11.0 10^3/uL Red Blood Count 4.66 3.80-5.11 10^6/uL Hemoglobin 13.6 11.5-16.0 g/dL Hematocrit 42 35-52 % Mean Corpuscular Volume 89 80-99 fL Mean Corpuscular Hemoglobin 29 25-34 pg Mean Corpuscular Hemoglobin Concent 33 32-36 g/dL Red Cell Distribution Width 12.8 10.0-14.5 % Platelet Count 280 130-400 10^3/uL Mean Platelet Volume 10.5 9.0-12.2 fL Immature Granulocyte % (Auto) 1 % Neutrophils (%) (Auto) 72 42-75 % Lymphocytes (%) (Auto) 20 12-44 % Monocytes (%) (Auto) 5 0-12 % Eosinophils (%) (Auto) 1 0-10 % Basophils (%) (Auto) 1 0-10 % Neutrophils # (Auto) 9.5 H 1.8-7.8 10^3/uL Lymphocytes # (Auto) 2.6 1.0-4.0 10^3/uL Monocytes # (Auto) 0.6 0.0-1.0 10^3/uL Eosinophils # (Auto) 0.2 0.0-0.3 10^3/uL Basophils # (Auto) 0.1 0.0-0.1 10^3/uL Immature Granulocyte # (Auto) 0.2 H 0.0-0.1 10^3/uL Sodium Level 139 135-145 MMOL/L Potassium Level 4.6 3.6-5.0 MMOL/L Chloride Level 102 98-107 MMOL/L Carbon Dioxide Level 23 21-32 MMOL/L Anion Gap 14 5-14 MMOL/L Blood Urea Nitrogen 19 H 7-18 MG/DL Creatinine 1.06 0.60-1.30 MG/DL Estimat Glomerular Filtration Rate 51 BUN/Creatinine Ratio 18 Glucose Level 246 H 70-105 MG/DL Lactic Acid Level 2.95 *H 0.50-2.00 MMOL/L Calcium Level 9.5 8.5-10.1 MG/DL Corrected Calcium 9.6 8.5-10.1 MG/DL Magnesium Level 1.7 1.6-2.4 MG/DL Total Bilirubin 0.2 0.1-1.0 MG/DL Aspartate Amino Transf (AST/SGOT) 21 5-34 U/L Alanine Aminotransferase (ALT/SGPT) 24 0-55 U/L Alkaline Phosphatase 119 40-136 U/L Lactate Dehydrogenase 238 H 125-220 U/L Total Creatine Kinase 71 29-168 U/L Creatine Kinase MB 1.4 <6.6 NG/ML Myoglobin 42.9 10.0-92.0 NG/ML Troponin I < 0.028 <0.028 NG/ML B-Type Natriuretic Peptide 10.8 <100.0 PG/ML Total Protein 7.0 6.4-8.2 GM/DL Albumin 3.9 3.2-4.5 GM/DL Procalcitonin 0.05 <0.10 NG/ML Urine Color YELLOW Urine Clarity CLEAR Urine pH 7.0 5-9 Urine Specific [place] 1.020 1.016-1.022 Urine Protein NEGATIVE NEGATIVE Urine Glucose (UA) NEGATIVE NEGATIVE Urine Ketones NEGATIVE NEGATIVE Urine Nitrite NEGATIVE NEGATIVE Urine Bilirubin NEGATIVE NEGATIVE Urine Urobilinogen 0.2 < = 1.0 MG/DL Urine Leukocyte Esterase TRACE H NEGATIVE Urine RBC (Auto) NEGATIVE NEGATIVE Urine RBC NONE /HPF Urine WBC 5-10 H /HPF Urine Squamous Epithelial Cells 0-2 /HPF Urine Crystals NONE /LPF Urine Bacteria FEW H /HPF Urine Casts NONE /LPF Urine Mucus NEGATIVE /LPF Urine Culture Indicated YES Urine Opiates Screen NEGATIVE NEGATIVE Urine Oxycodone Screen NEGATIVE NEGATIVE Urine Methadone Screen NEGATIVE NEGATIVE Urine Propoxyphene Screen NEGATIVE NEGATIVE Urine Barbiturates Screen NEGATIVE NEGATIVE Ur Tricyclic Antidepressants Screen NEGATIVE NEGATIVE Urine Phencyclidine Screen NEGATIVE NEGATIVE Urine Amphetamines Screen NEGATIVE NEGATIVE Urine Methamphetamines Screen NEGATIVE NEGATIVE Urine Benzodiazepines Screen NEGATIVE NEGATIVE Urine Cocaine Screen NEGATIVE NEGATIVE Urine Cannabinoids Screen NEGATIVE NEGATIVE Coronavirus 2019 (STEPHANE) Positive H Negative Prothrombin Time 12.2 12.2-14.7 SEC INR Comment 0.9 0.8-1.4 Activated Partial Thromboplast Time < 20 L 24-35 SEC My Orders Orders - PETER ASHLEY DO Ed Iv/Invasive Line Start (12/10/19 18:44) Ekg Tracing (12/10/19 18:44) Monitor-Rhythm Ecg Trace Only (12/10/19 18:44) BNP (12/10/19 18:44) Cbc With Automated Diff (12/10/19 18:44) Comprehensive Metabolic Panel (12/10/19 18:44) Creatine Kinase (12/10/19 18:44) Creatine Kinase Mb (12/10/19 18:44) Drug Screen Stat (Urine) (12/10/19 18:44) Lactic Acid Analyzer (12/10/19 18:44) Magnesium (12/10/19 18:44) Procalcitonin (Pct) (12/10/19 18:44) Ua Culture If Indicated (12/10/19 18:44) Blood Culture (12/10/19 18:44) Myoglobin Serum (12/10/19 18:44) Troponin I (12/10/19 18:44) Chest 1 View, Ap/Pa Only (12/10/19 18:44) LDH (12/10/19 18:44) Coronavirus Sars-Cov-2 So 2018 (12/10/19 18:44) Covid 19 Inhouse Test (12/10/19 18:44) Urine Culture (12/10/19 18:10) Protime With Inr (12/10/19 19:13) Partial Thromboplastin Time (12/10/19 19:13) Ceftriaxone For Iv Use (Rocephin For I (12/10/19 19:45) Azithromycin Tablet (Zithromax Tablet) (12/10/19 19:45) Dexamethasone Injection (Decadron Inje (12/10/19 19:45) Benzonatate Capsule (Tessalon Perles) (12/10/19 19:45) Medications Given in ED Current Medications Medications Dose Ordered Sig/Alannah Route Start Time Stop Time Status Last Admin Dose Admin Azithromycin 500 mg ONCE ONCE PO 12/10/19 19:45 12/10/19 19:46 DC 12/10/19 19:58 500 MG Ceftriaxone Sodium 1000 mg/ Sterile Water 10 ml @ 200 mls/hr ONCE ONCE IV 12/10/19 19:45 12/10/19 19:47 DC 12/10/19 19:49 200 MLS/HR Vital Signs/I&O 12/10/19 12/10/19 12/10/19 18:00 19:36 20:32 Temp 37.0 37.0 Pulse 80 70 70 Resp 18 22 22 B/P (MAP) 116/57 (76) 133/66 133/66 (88) Pulse Ox 94 96 96 O2 Delivery Room Air Room Air Room Air Capillary Refill : Less Than 3 Seconds Blood Pressure Mean: 76 Progress Note : Progress Note NO COUGH OR DYSPNEA AT ANY TIME DURING ER STAY O2 SATS REMAINED IN UPPER 90'S ON ROOM AIR DURING ENTIRE ER STAY ALL VITALS NORMAL. WALKS IN AND OUT OF ER ON HER OWN WITHOUT DIFFICULTY ECG Initial ECG Impression Date: Dec 10, 2019 Initial ECG Impression Time: 19:09 Initial ECG Rate: 74 Initial ECG Rhythm: Normal Sinus Initial ECG Impression: Nonspecific Changes Initial ECG Comparisson: Unchanged Diagnostic Imaging Comments CXR--NO ACUTE PROCESS, CARDIOMEGALY--PER RADIOLOGIST REPORT AT 1931 Reviewed: Reviewed by Me Departure Impression Primary Impression: COVID-19 virus infection Additional Impressions: UTI (urinary tract infection) COPD (chronic obstructive pulmonary disease) IDDM (insulin dependent diabetes mellitus) Disposition: 01 HOME, SELF-CARE Condition: Stable Departure-Patient Inst. Referrals: NANNETTE REVELES DO (PCP/Family) Primary Care Physician Patient Instructions: Coronavirus Disease 2019 (COVID-19) (DC), Preventing the Spread of an Infectious Disease, Urinary Tract Infection, Adult (DC) Add. Discharge Instructions: LOTS OF CLEAR LIQUIDS TAKE YOUR REGULAR MEDICATIONS PRESCRIBED FOLLOW UP WITH DR. REVELES IN 4-5 DAYS IF NO BETTER, RETURN TO ER IF WORSE All discharge instructions reviewed with patient and/or family. Voiced understanding. Scripts Benzonatate (TESSALON PERLES) 100 Mg Capsule 100-200 MG PO TID, #30 CAP Prov: PETER ASHLEY DO 12/10/19 Guaifenesin/Dextromethorphan (Mucinex Dm ER 1,200-60 mg Tab) 1 Each Tbmp.12hr 1 EACH PO BID, #20 EA Prov: PETER ASHLEY DO 12/10/19 Dexamethasone (Dexamethasone) 6 Mg Tablet 6 MG PO DAILY, #4 TAB Prov: PETER ASHLEY DO 12/10/19 Azithromycin (Zithromax) 500 Mg Tablet 500 MG PO DAILY for 5 Days, #5 TAB Prov: PETER ASHLEY DO 12/10/19 Cefdinir (Cefdinir) 300 Mg Capsule 300 MG PO BID, #20 CAP Prov: PETER ASHLEY DO 12/10/19 PETER ASHLEY DO Dec 10, 2019 18:50
--- NOTE | 2019-12-10 18:57 | NUR ---
REPORT GIVEN TO LEXI.
[2019-12-10 19:00] LABS: MEAN CORPUSCULAR VOLUME 89 fL (80-99)
[2019-12-10 19:02] LABS: BASOPHILS # (AUTO) 0.1 10^3/uL (0.0-0.1); BASOPHILS % (AUTO) 1 % (0-10); EOSINOPHILS # (AUTO) 0.2 10^3/uL (0.0-0.3); EOSINOPHILS % (AUTO) 1 % (0-10); HEMATOCRIT 42 % (35-52); HEMOGLOBIN 13.6 g/dL (11.5-16.0); LYMPHOCYTES # (AUTO) 2.6 10^3/uL (1.0-4.0); LYMPHOCYTES % (AUTO) 20 % (12-44); MEAN CORPUSCULAR HEMOGLOBIN 29 pg (25-34); MEAN CORPUSCULAR HGB CONC 33 g/dL (32-36); MEAN PLATELET VOLUME 10.5 fL (9.0-12.2); MONOCYTES # (AUTO) 0.6 10^3/uL (0.0-1.0); MONOCYTES % (AUTO) 5 % (0-12); NEUTROPHILS # (AUTO) 9.5 10^3/uL (1.8-7.8); NEUTROPHILS % (AUTO) 72 % (42-75); PLATELET COUNT 280 10^3/uL (130-400); WHITE BLOOD COUNT 13.1 10^3/uL (4.3-11.0)
[2019-12-10 19:03] LABS: BILIRUBIN,URINE NEGATIVE (NEGATIVE); CLARITY,URINE CLEAR; COLOR,URINE YELLOW; GLUCOSE, URINE (UA) NEGATIVE (NEGATIVE); KETONES,URINE NEGATIVE (NEGATIVE); LEUKOCYTE ESTERASE ,URINE TRACE (NEGATIVE); NITRITE,URINE NEGATIVE (NEGATIVE); PROTEIN,URINE NEGATIVE (NEGATIVE)
[2019-12-10 19:05] LABS: ALBUMIN 3.9 GM/DL (3.2-4.5)
[2019-12-10 19:06] LABS: CHLORIDE 102 MMOL/L (98-107); POTASSIUM 4.6 MMOL/L (3.6-5.0); SODIUM 139 MMOL/L (135-145)
[2019-12-10 19:07] LABS: CALCIUM 9.5 MG/DL (8.5-10.1)
[2019-12-10 19:08] LABS: GLUCOSE 246 MG/DL (70-105)
[2019-12-10 19:09] LABS: CARBON DIOXIDE 23 MMOL/L (21-32)
[2019-12-10 19:10] LABS: BACTERIA,URINE FEW /HPF; SQUAMOUS EPITHELIAL CELL,UR 0-2 /HPF
[2019-12-10 19:10] LABS: BILIRUBIN,TOTAL 0.2 MG/DL (0.1-1.0)
[2019-12-10 19:12] LABS: ALKALINE PHOSPHATASE 119 U/L (40-136); CREATININE SERUM 1.06 MG/DL (0.60-1.30); GFR ESTIMATED 51
[2019-12-10 19:13] LABS: BUN/CREATININE RATIO 18
[2019-12-10 19:15] LABS: AMPHETAMINE SCREEN, URINE NEGATIVE (NEGATIVE); BARBITURATE SCREEN URINE NEGATIVE (NEGATIVE); BENZODIAZEPINES SCREEN URINE NEGATIVE (NEGATIVE); CANNABINOID SCREEN, URINE NEGATIVE (NEGATIVE); COCAINE SCREEN URINE NEGATIVE (NEGATIVE); METHADONE STAT NEGATIVE (NEGATIVE); METHAMPHETAMINE SCREEN URINE S NEGATIVE (NEGATIVE); OPIATE SCREEN URINE NEGATIVE (NEGATIVE); OXYCODONE STAT NEGATIVE (NEGATIVE); PROPOXYPHENE STAT NEGATIVE (NEGATIVE); TRICYCLIC ANTIDEPRESSANTS SCRE NEGATIVE (NEGATIVE)
[2019-12-10 19:15] LABS: ALANINE AMINOTRANSFERASE 24 U/L (0-55); MAGNESIUM 1.7 MG/DL (1.6-2.4)
[2019-12-10 19:16] LABS: CREATINE KINASE 71 U/L (29-168)
[2019-12-10 19:23] LABS: CREATINE KINASE MB 1.4 NG/ML (<6.6)
--- NOTE | 2019-12-10 19:26 | Diagnostic Imaging Report ---
EXAMINATION: Chest 1 view. HISTORY: Chest pain. Shortness of breath. Cough. COMPARISON: 09/04/2019. FINDINGS: The lung volumes are normal. No focal consolidation is seen. No large pleural effusion or pneumothorax is seen. The cardiomediastinal silhouette is enlarged. A left pectoral ICD is in place. No acute osseous abnormality is seen. IMPRESSION: Cardiomegaly. No overt pulmonary edema. Dictated by: Dictated on workstation # [id number]
[2019-12-10] MEDS ORDERED: DEXA6TAB PO (19:36)
[2019-12-10] MEDS ORDERED: BENZ100C18 PO (19:36)
[2019-12-10] MEDS ORDERED: GUAI1TBM19 PO (19:36)
[2019-12-10] MEDS ORDERED: AZIT500T PO (19:36)
[2019-12-10] MEDS ORDERED: CEFD300C3 PO (19:36)
--- NOTE | 2019-12-10 19:37 | NUR ---
Report from SHRAVAN Ward. Pt contact made; ECG, IV, and new lab sample obtained. Pt A&Ox4, c/o shob x "several months". States she came to the ER because she "just couldn't tolerate it anymore today". Pt is on RA and 96%. Pt watching tv with call light within reach. Lungsounds are CTA.
[2019-12-10] MEDS ORDERED: BENZONATATE 100 MG (TESSALON) CAPSULE PO SCH (19:45)
[2019-12-10] MEDS ORDERED: AZITHROMYCIN 250 MG TAB (ZITHROMAX) PO ONE (19:45)
[2019-12-10] MEDS ORDERED: cefTRIAXone FOR IV USE 1,000 MG in WATER (STERILE) FOR INJECTION 10 ML IV ONE (19:45)
[2019-12-10 20:04] LABS: INR 0.9 (0.8-1.4); PARTIAL THROMBOPLASTIN TIME < 20 SEC (24-35)
[2019-12-10 20:05] LABS: PROTHROMBIN TIME PATIENT 12.2 SEC (12.2-14.7)
--- NOTE | 2019-12-10 20:30 | NUR ---
Pt d/c education provided, including indications to return to the ER. Pt verbalized an udnerstanding. Pt assisted to vehicle via w/c. Pt showing no obvious s/s of distress.
[2019-12-10 20:32] VITALS: BP 133/66
== END 2019-12-10 20:33 | disposition home or self-care (01) ==
LOC: EDUNIT# 17:40 → ER 17:41
DX: U07.1 COVID-19 (principal); J44.9 Chronic obstructive pulmonary disease, unspecified; N39.0 Urinary tract infection, site not specified; E11.42 Type 2 diabetes mellitus with diabetic polyneuropathy; I25.10 Atherosclerotic heart disease of native coronary artery without angina pectoris; I10 Essential (primary) hypertension; K21.9 Gastro-esophageal reflux disease without esophagitis; F41.9 Anxiety disorder, unspecified; F32.9 Major depressive disorder, single episode, unspecified; Z88.0 Allergy status to penicillin; Z88.2 Allergy status to sulfonamides; Z88.6 Allergy status to analgesic agent; Z88.8 Allergy status to other drugs, medicaments and biological substances; Z86.73 Personal history of transient ischemic attack (TIA), and cerebral infarction without residual deficits; Z79.82 Long term (current) use of aspirin; Z79.4 Long term (current) use of insulin; Z77.22 Contact with and (suspected) exposure to environmental tobacco smoke (acute) (chronic); Z82.49 Family history of ischemic heart disease and other diseases of the circulatory system
CPT/HCPCS: 71045; 80053; 80306; 81000; 82550; 82553; 83605; 83615; 83735; 83874; 83880; 84145; 84484; 85025; 85610; 85730; 87040; 87088; 93005; 93041; 99284; U0002; 36415; 87635

== ENCOUNTER 2019-12-13 00:32 | Emergency (ER) | payer MEDICARE ==
[~2019-12-13] VITALS: Ht 157 cm; Wt 90.0 kg
[~2019-12-13 00:32] MED LIST changes: +DEXA6TAB PO; +GUAI1TBM19 PO
[2019-12-13 01:06] LABS: BASOPHILS % (AUTO) 0 % (0-10); EOSINOPHILS % (AUTO) 0 % (0-10); HEMATOCRIT 43 % (35-52); HEMOGLOBIN 13.9 g/dL (11.5-16.0); LYMPHOCYTES # (AUTO) 1.6 10^3/uL (1.0-4.0); LYMPHOCYTES % (AUTO) 10 % (12-44); MEAN CORPUSCULAR HEMOGLOBIN 29 pg (25-34); MEAN CORPUSCULAR HGB CONC 32 g/dL (32-36); MEAN CORPUSCULAR VOLUME 89 fL (80-99); MEAN PLATELET VOLUME 9.8 fL (9.0-12.2); MONOCYTES # (AUTO) 0.4 10^3/uL (0.0-1.0); MONOCYTES % (AUTO) 3 % (0-12); NEUTROPHILS # (AUTO) 13.2 10^3/uL (1.8-7.8); NEUTROPHILS % (AUTO) 84 % (42-75); PLATELET COUNT 379 10^3/uL (130-400); WHITE BLOOD COUNT 15.8 10^3/uL (4.3-11.0)
[2019-12-13 01:12] LABS: ALBUMIN 4.2 GM/DL (3.2-4.5); POTASSIUM 4.4 MMOL/L (3.6-5.0)
[2019-12-13 01:13] LABS: CALCIUM 9.5 MG/DL (8.5-10.1)
[2019-12-13 01:15] LABS: TOTAL PROTEIN 7.3 GM/DL (6.4-8.2)
[2019-12-13 01:16] LABS: BILIRUBIN,TOTAL 0.3 MG/DL (0.1-1.0)
[2019-12-13 01:18] LABS: CREATININE SERUM 1.03 MG/DL (0.60-1.30)
[2019-12-13 01:47] LABS: BAND NEUTROPHILS 1 %; LYMPHOCYTES % (MANUAL) 12 %; MONOCYTES % (MANUAL) 2 %; NEUTROPHILS % (MANUAL) 83 %
[2019-12-13 01:48] LABS: METAMYELOCYTES % 1 %; MYELOCYTES % 1 %; POIKILOCYTOSIS SLIGHT
--- NOTE | 2019-12-13 01:51 | ED General ---
General Chief Complaint: General Problems/Pain Stated Complaint: LOW BODY TEMPERATURE Nursing Triage Note: Pt is Covid positive and concerned that her temperature is too low. Nursing Sepsis Screen: No Definite Risk Source of Information: Patient Exam Limitations: No Limitations History of Present Illness Date Seen by Provider: Dec 13, 2019 Time Seen by Provider: 00:40 Initial Comments This 74-year-old woman with known COVID-19 presents to the emergency room with concerns about her temperature being too low. She describes temperatures in the 96-100.4 range by her thermometers at home. She was concerned that this may represent hypothermia. She has been doing fairly well with her COVID 19. She is not in respiratory distress and not hypoxic. Oxygen saturation on room air is 93 percent. She normally wears oxygen at 2 L/m at home. She was placed on antibiotics because of her COPD and presence of urinary tract infection. She is also on steroids and has experienced some hyperglycemia. She is working with her primary care provider on management of her hyperglycemia. She complains of acute headache today. She reports her usual headache regimen in the ER is Toradol, Benadryl, and Phenergan. Allergies and Home Medications Allergies Coded Allergies: Penicillins (Unverified Allergy, Severe, Pt has received Cefepime & Ceftriaxone in the past w/o issue, 09/22/19) SWELLING, RASH, ITCHING Sulfa (Sulfonamide Antibiotics) (Verified Allergy, Mild, 09/22/19) RASH aspirin (Verified Adverse Reaction, Mild, ASPIRIN SENSITIVE, 09/22/19) UPSET STOMACH sumatriptan (Verified Adverse Reaction, Mild, PALPITATIONS, 09/22/19) IRRITABLE Home Medications Albuterol Sulfate 0.63 Mg/3 Ml Vial.neb, 0.63 MG IH Q6H PRN for WHEEZING, (Reported) Aspirin 81 Mg Tab.chew, 81 MG PO DAILY, (Reported) Azithromycin 500 Mg Tablet, 500 MG PO DAILY Prescribed by: PETER ASHLEY on 12/10/191935 Benzonatate 100 Mg Capsule, 100-200 MG PO TID Prescribed by: PETER ASHLEY on 12/10/191935 Cefdinir 300 Mg Capsule, 300 MG PO BID Prescribed by: PETER ASHLEY on 12/10/191935 Cholecalciferol (Vitamin D3) 125 Mcg Tablet, 250 MCG PO 1800, (Reported) Dexamethasone 6 Mg Tablet, 6 MG PO DAILY Prescribed by: PETER ASHLEY on 12/10/191935 Diltiazem HCl 240 Mg Cap.er.24h, 240 MG PO DAILY, (Reported) Guaifenesin/Dextromethorphan 1 Each Tbmp.12hr, 1 EACH PO BID Prescribed by: PTEER ASHLEY on 12/10/191935 Hydroxyzine HCl 25 Mg Tablet, 25 MG PO for ANXIETY, (Reported) Insulin NPH Human Isophane 100 Unit/1 Ml Vial, 25 UNIT SQ BID Prescribed by: NANNETTE REVELES on 06/29/191246 Lorazepam 0.5 Mg Tablet, 0.5 MG PO QID Prescribed by: NANNETTE REVELES on 06/29/191246 Magnesium Oxide 400 Mg Tablet, 800 MG PO DAILY, (Reported) TAKES 2 (400MG) TABS Melatonin 3 Mg Tablet, 6 MG PO HS PRN for SLEEP, (Reported) TAKES 2 (3MG) TABS Metoprolol Tartrate 50 Mg Tablet, 100 MG PO BID replaces 25mg dose Prescribed by: NANNETTE REVELES on 06/29/191246 Montelukast Sodium 10 Mg Tablet, 10 MG PO HS Prescribed by: NANNETTE REVELES on 06/29/191246 Omeprazole 40 Mg Capsule.dr, 40 MG PO BID, (Reported) Pramipexole Di-HCl 1 Mg Tablet, 1 MG PO HS, (Reported) LAST FILLED 02-16-2019 #90/90 DAY SUPPLT Patient Home Medication List Home Medication List Reviewed: Yes Review of Systems Review of Systems Constitutional: see HPI EENTM: no symptoms reported Respiratory: see HPI Cardiovascular: no symptoms reported Gastrointestinal: diarrhea Genitourinary: see HPI : No Musculoskeletal: no symptoms reported Skin: no symptoms reported Psychiatric/Neurological: See HPI Hematologic/Lymphatic: No Symptoms Reported Immunological/Allergic: no symptoms reported Past [id number]-[id number]-Tlmokg Hx Past Med/Social Hx: Reviewed Nursing Past Med/Soc Hx Patient Social History Alcohol Use: Denies Use Recreational Drug Use: No 2nd Hand Smoke Exposure: Yes Recent Foreign Travel: No Contact w/Someone Who Travel: No Recent Infectious Disease Expo: Yes Recent Hopitalizations: No Immunizations Up To Date Tetanus Booster (TDap): Unknown PED Vaccines UTD: No Date of Pneumonia Vaccine: Apr 04, 2018 Date of Influenza Vaccine: Dec 31, 2018 Seasonal Allergies Seasonal Allergies: Yes Past Medical History Surgeries: Yes (LAP CORNELIUS; C-SPINE FUSION/DISCECTOMY C5-C6 ) Abdominal, Appendectomy, Cardiac, Defibrillator, Eye Surgery, Gallbladder, Hysterectomy, Oophorectomy, Orthopedic, Pacemaker, Tonsillectomy Respiratory: Yes (O2 AT 2L/NC CONTINUOUSLY) Asthma, Pneumonia, Chronic Bronchitis, Sleep Apnea, COPD Currently Using CPAP: No Currently Using BIPAP: No Cardiac: Yes (PACEMAKER/DEFIBRILLATOR;CARDIAC ARREST DURING ENT SURGERY;PSVT/PALPITATIONS) Atrial Fibrillation, Chronic Edema/Swelling, Coronary Artery Disease, High Cholesterol, Hypertension, Irregular Heartbeat Neurological: Yes (PERIPHERAL NEUROPATHY HANDS/FEET; CHRONIC HEADACHES) Headaches /Migraines, Neuropathy, TIA 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 Disorders: No Female 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 Disorders: Denies EXHIBITIONS CURATOR History: Hysterectomy, 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 PAIN) Degenerate Disk Disease, Arthritis, Fibromyalgia, Chronic Back Pain, Fractures Endocrine: Yes Diabetes, Insulin dep, Diabetes, Non-Insulin dep HEENT: Yes (S/P BILATERAL CATARACT SURGERY + YAG PROCEDURE;ENT SURG WITH CARDIAC ARREST) Cataract Loss of Vision: Denies Hearing Impairment: Denies Cancer: No Psychosocial: Yes Anxiety, Depression Integumentary: Yes (NELIA INTERTRIGO) Pruritis Blood Disorders: No Adverse Reaction/Blood Tranf: No Family Medical History Reviewed Nursing Family Hx Alzheimer's disease 19 FATHER Cardiovascular disease 19 FATHER 19 MOTHER Completed stroke 19 MOTHER Hypertension 19 FATHER 19 MOTHER Myocardial infarction 19 FATHER 19 MOTHER No Family History of: Diabetes mellitus PSH: -T12 KYPHOPLASTY -C5-C6 CERVICAL DISCECTOMY WITH FUSION 04/2018 -LAP CORNELIUS FUNDOPLICATION -EGD'S/ESOPHAGEAL DILATIONS/COLONOSCOPIES/POLYPECTOMIES -PACEMAKER/DEFIBRILLATOR -HYSTERECTOMY/BSO -CHOLECYSTECTOMY -APPENDECTOMY -TONSILLECTOMY -OVARIAN CYST SURGERIES X 4 -CYST FROM BACK REMOVED -ENT SURGERY -BILATERAL CARPAL TUNNEL REPAIR PMH: -CHRONIC NECK PAIN WITH CERVICAL RADICULOPATHY -RESTLESS LEG SYNDROME -CHRONIC BACK PAIN -T12 COMPRESSION WITH KYPHOPLASTY -HAS HAD POST OP RESPIRATORY FAILURE IN PAST -HAD CARDIAC ARREST WITH ENT SURGERY -CAROTID DISEASE--40-50% STENOSIS BILAT ICA -PAROXYSMAL A FIB--HAS REFUSED ORAL ANTICOAGULANTS -HX OF V-FIB AND BRADYCARDIA--S/P PACEMAKER/DEFIBRILLATOR -08/23/19--CARDIAC CATH--NO SIGNIFICANT CORONARY ARTERY DISEASE, EF 50% Physical Exam Vital Signs Vital Signs - First Documented 12/13/19 00:46 Temp 36.0 Pulse 69 Resp 24 B/P (MAP) 179/89 (119) Pulse Ox 97 O2 Delivery Nasal Cannula Capillary Refill : Less Than 3 Seconds Height, Weight, BMI Height: 5'4.00" Weight: 215lbs. 0oz. 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 as Tested Skin: Normal Color, Warm/Dry Procedures/Interventions Date of ETT Placement: Apr 21, 2018 Time of ETT Placement: 1744 Progress/Results/Core Measures Suspected Sepsis Recent Fever Within 48 Hours: No Infection Criteria Present: Documented Infection New/Unexplained Altered Menta: No Sepsis Screen: No Definite Risk SIRS Temperature: Pulse: 69 Respiratory Rate: 24 Laboratory Tests 12/13/19 00:52: White Blood Count 15.8H Blood Pressure 179 /89 Mean: 119 Laboratory Tests 12/13/19 00:52: Creatinine 1.03, Platelet Count 379, Total Bilirubin 0.3 Results/Orders Lab Results Laboratory Tests Test 12/13/19 00:52 Range/Units White Blood Count 15.8 H 4.3-11.0 10^3/uL Red Blood Count 4.85 3.80-5.11 10^6/uL Hemoglobin 13.9 11.5-16.0 g/dL Hematocrit 43 35-52 % Mean Corpuscular Volume 89 80-99 fL Mean Corpuscular Hemoglobin 29 25-34 pg Mean Corpuscular Hemoglobin Concent 32 32-36 g/dL Red Cell Distribution Width 12.8 10.0-14.5 % Platelet Count 379 130-400 10^3/uL Mean Platelet Volume 9.8 9.0-12.2 fL Immature Granulocyte % (Auto) 3 % Neutrophils (%) (Auto) 84 H 42-75 % Lymphocytes (%) (Auto) 10 L 12-44 % Monocytes (%) (Auto) 3 0-12 % Eosinophils (%) (Auto) 0 0-10 % Basophils (%) (Auto) 0 0-10 % Neutrophils # (Auto) 13.2 H 1.8-7.8 10^3/uL Lymphocytes # (Auto) 1.6 1.0-4.0 10^3/uL Monocytes # (Auto) 0.4 0.0-1.0 10^3/uL Eosinophils # (Auto) 0.0 0.0-0.3 10^3/uL Basophils # (Auto) 0.0 0.0-0.1 10^3/uL Immature Granulocyte # (Auto) 0.5 H 0.0-0.1 10^3/uL Neutrophils % (Manual) 83 % Lymphocytes % (Manual) 12 % Monocytes % (Manual) 2 % Metamyelocytes % 1 % Myelocytes % 1 % Band Neutrophils 1 % Poikilocytosis SLIGHT Sodium Level 133 L 135-145 MMOL/L Potassium Level 4.4 3.6-5.0 MMOL/L Chloride Level 97 L 98-107 MMOL/L Carbon Dioxide Level 22 21-32 MMOL/L Anion Gap 14 5-14 MMOL/L Blood Urea Nitrogen 23 H 7-18 MG/DL Creatinine 1.03 0.60-1.30 MG/DL Estimat Glomerular Filtration Rate 53 BUN/Creatinine Ratio 22 Glucose Level 291 H 70-105 MG/DL Calcium Level 9.5 8.5-10.1 MG/DL Corrected Calcium 9.3 8.5-10.1 MG/DL Magnesium Level 2.0 1.6-2.4 MG/DL Total Bilirubin 0.3 0.1-1.0 MG/DL Aspartate Amino Transf (AST/SGOT) 15 5-34 U/L Alanine Aminotransferase (ALT/SGPT) 21 0-55 U/L Alkaline Phosphatase 116 40-136 U/L Total Protein 7.3 6.4-8.2 GM/DL Albumin 4.2 3.2-4.5 GM/DL My Orders Orders - BRADY HOFFMAN MD Ed Iv/Invasive Line Start (12/13/19 00:57) Cbc With Automated Diff (12/13/19 00:57) Comprehensive Metabolic Panel (12/13/19 00:57) Magnesium (12/13/19 00:57) Manual Differential (12/13/19 00:52) Ketorolac Injection (Toradol Injection) (12/13/19 02:00) Promethazine Injection (Phenergan Injec (12/13/19 02:00) Diphenhydramine Injection (Benadryl Inje (12/13/19 02:00) Medications Given in ED Current Medications Medications Dose Ordered Sig/Alannah Route Start Time Stop Time Status Last Admin Dose Admin Diphenhydramine HCl 25 mg ONCE ONCE IVP 12/13/19 02:00 12/13/19 02:01 DC 12/13/19 02:00 25 MG Ketorolac Tromethamine 15 mg ONCE ONCE IVP 12/13/19 02:00 12/13/19 02:01 DC 12/13/19 02:00 15 MG Promethazine HCl 12.5 mg ONCE ONCE IVP 12/13/19 02:00 12/13/19 02:01 DC 12/13/19 01:58 12.5 MG Vital Signs/I&O 12/13/19 00:46 Temp 36.0 Pulse 69 Resp 24 B/P (MAP) 179/89 (119) Pulse Ox 97 O2 Delivery Nasal Cannula Capillary Refill : Less Than 3 Seconds Blood Pressure Mean: 119 Progress Note : Time: 02:06 Progress Note Labs did not indicate any acute treatments were required. Patient did request treatment for her headache. Benadryl, Toradol, and Phenergan were administered. She had no fever or hypothermia while in the ER. Departure Impression Primary Impression: COVID-19 virus infection Additional Impressions: Decreased body temperature Acute headache Qualified Codes: R51 - Headache Disposition: 01 HOME, SELF-CARE Condition: Improved Departure-Patient Inst. Decision time for Depature: 01:48 Referrals: NANNETTE REVELES DO (PCP/Family) Primary Care Physician Patient Instructions: Coronavirus Disease 2019 (COVID-19) Overview Add. Discharge Instructions: Continue your previously prescribed medications as directed. Drink plenty of water. Check your blood sugars often, preferably fasting in 2 hours after meals. Communicate closely with your primary care provider for persistently high or low blood sugars. Eat a low carbohydrate low sugar diet. The steroids were taking may elevate your blood sugars. For headache, pain or fever you may take ibuprofen up to 600 mg every 6 hours as needed and/or Tylenol (acetaminophen) up to 1000 mg every 6 hours He did not have any significant fluctuations in your body temperature during your ER visit today. Body temperatures as low as 95F or 35C are normal. Call or return to care if your temperature dips below these values. Return to the emergency room or call with any further urgent medical needs or concerns. All discharge instructions reviewed with patient and/or family. Voiced understanding. Copy Copies To 1: NANNETTE REVELES JOSHUA T MD Dec 13, 2019 01:51
[2019-12-13] MEDS ORDERED: PROMETHAZINE INJ 25 MG/ML (PHENERGAN) AMP IVP ONE (02:00)
[2019-12-13] MEDS ORDERED: diphenhydrAMINE 50 MG/ML INJ (BENADRYL) IVP ONE (02:00)
[2019-12-13] MEDS ORDERED: KETOROLAC 30 MG/ML VIAL IVP ONE (02:00)
[2019-12-13 02:16] VITALS: BP 123/98
== END 2019-12-13 02:17 | disposition home or self-care (01) ==
LOC: EDUNIT# 00:32 → ER 00:35
DX: U07.1 COVID-19 (principal); J44.9 Chronic obstructive pulmonary disease, unspecified; K21.9 Gastro-esophageal reflux disease without esophagitis; E11.9 Type 2 diabetes mellitus without complications; F41.9 Anxiety disorder, unspecified; I10 Essential (primary) hypertension; Z82.49 Family history of ischemic heart disease and other diseases of the circulatory system; Z95.810 Presence of automatic (implantable) cardiac defibrillator; Z77.22 Contact with and (suspected) exposure to environmental tobacco smoke (acute) (chronic); Z86.73 Personal history of transient ischemic attack (TIA), and cerebral infarction without residual deficits; Z79.4 Long term (current) use of insulin; Z79.82 Long term (current) use of aspirin
CPT/HCPCS: 36415; 80053; 83735; 85007; 85027

== ENCOUNTER 2019-12-24 18:04 | Emergency (ER) | payer MEDICARE ==
[~2019-12-24] VITALS: Ht 162.5 cm; Wt 102.0 kg
--- NOTE | 2019-12-24 19:22 | ED Respiratory ---
General Chief Complaint: Respiratory Problems Stated Complaint: COVID POSITIVE;SOA History of Present Illness Date Seen by Provider: Dec 24, 2019 Time Seen by Provider: 19:18 Initial Comments Patient is a 74-year-old female who presents to the emergency department with a chief complaint of generalized weakness, shortness of breath, body aches. She came in today to the hospital for an outpatient chest x-ray. She was still wheezy and coughing so hard that the tech became concerned as well as her and she decided to come in to the emergency room to be evaluated. Patient was recently diagnosed with coronavirus on December 10. She states that her symptoms continue to have gone and she still runs intermittent fever T-max 100.9. She also recently had a urinary tract infection and still has some lower abdominal discomfort. She Per review of the medical record took Zithromax and cefdinir. She complains of some GI upset as well. No nausea vomiting. No sore throat. No chest pain. All other review of systems reviewed and negative except as stated above. Timing/Duration: constant Prior Episodes/Possible Cause: frequent episodes Allergies and Home Medications Allergies Coded Allergies: Penicillins (Unverified Allergy, Severe, Pt has received Cefepime & Ceftriaxone in the past w/o issue, 09/22/19) SWELLING, RASH, ITCHING Sulfa (Sulfonamide Antibiotics) (Verified Allergy, Mild, 09/22/19) RASH aspirin (Verified Adverse Reaction, Mild, ASPIRIN SENSITIVE, 09/22/19) UPSET STOMACH sumatriptan (Verified Adverse Reaction, Mild, PALPITATIONS, 09/22/19) IRRITABLE Home Medications Albuterol Sulfate 0.63 Mg/3 Ml Vial.neb, 0.63 MG IH Q6H PRN for WHEEZING, (Reported) Aspirin 81 Mg Tab.chew, 81 MG PO DAILY, (Reported) Azithromycin 500 Mg Tablet, 500 MG PO DAILY Prescribed by: PETER ASHLEY on 12/10/191935 Benzonatate 100 Mg Capsule, 100-200 MG PO TID Prescribed by: PETER ASHLEY on 12/10/191935 Cefdinir 300 Mg Capsule, 300 MG PO BID Prescribed by: PETER ASHLEY on 12/10/191935 Cholecalciferol (Vitamin D3) 125 Mcg Tablet, 250 MCG PO 1800, (Reported) Dexamethasone 6 Mg Tablet, 6 MG PO DAILY Prescribed by: PETER ASHLEY on 12/10/191935 Diltiazem HCl 240 Mg Cap.er.24h, 240 MG PO DAILY, (Reported) Guaifenesin/Dextromethorphan 1 Each Tbmp.12hr, 1 EACH PO BID Prescribed by: PETER ASHLEY on 12/10/191935 Hydroxyzine HCl 25 Mg Tablet, 25 MG PO for ANXIETY, (Reported) Insulin NPH Human Isophane 100 Unit/1 Ml Vial, 25 UNIT SQ BID Prescribed by: NANNETTE REVELES on 06/29/191246 Lorazepam 0.5 Mg Tablet, 0.5 MG PO QID Prescribed by: NANNETTE REVELES on 06/29/191246 Magnesium Oxide 400 Mg Tablet, 800 MG PO DAILY, (Reported) TAKES 2 (400MG) TABS Melatonin 3 Mg Tablet, 6 MG PO HS PRN for SLEEP, (Reported) TAKES 2 (3MG) TABS Metoprolol Tartrate 50 Mg Tablet, 100 MG PO BID replaces 25mg dose Prescribed by: NANNETTE REVELES on 06/29/191246 Montelukast Sodium 10 Mg Tablet, 10 MG PO HS Prescribed by: NANNETTE REVELES on 06/29/191246 Omeprazole 40 Mg Capsule.dr, 40 MG PO BID, (Reported) Pramipexole Di-HCl 1 Mg Tablet, 1 MG PO HS, (Reported) LAST FILLED 02-16-2019 #90/90 DAY SUPPLT Patient Home Medication List Home Medication List Reviewed: Yes Review of Systems Review of Systems Constitutional: malaise, weakness EENTM: no symptoms reported Respiratory: cough, dyspnea on exertion, short of breath Cardiovascular: no symptoms reported Gastrointestinal: RLQ, LLQ Genitourinary: frequency Musculoskeletal: muscle cramps Skin: no symptoms reported Past Lckwbqf-Kltepe-Btpcgv Hx Patient Social History 2nd Hand Smoke Exposure: Yes Recent Hopitalizations: No Immunizations Up To Date Tetanus Booster (TDap): Unknown PED Vaccines UTD: No Date of Pneumonia Vaccine: Apr 04, 2018 Date of Influenza Vaccine: Dec 31, 2018 Seasonal Allergies Seasonal Allergies: Yes Past Medical History Surgeries: Yes (LAP CORNELIUS; C-SPINE FUSION/DISCECTOMY C5-C6 ) Abdominal, Appendectomy, Cardiac, Defibrillator, Eye Surgery, Gallbladder, Hysterectomy, Oophorectomy, Orthopedic, Pacemaker, Tonsillectomy Respiratory: Yes (O2 AT 2L/NC CONTINUOUSLY) Asthma, Pneumonia, Chronic Bronchitis, Sleep Apnea, COPD Currently Using CPAP: No Currently Using BIPAP: No Cardiac: Yes (PACEMAKER/DEFIBRILLATOR;CARDIAC ARREST DURING ENT SURGERY;PSVT/PALPITATIONS) Atrial Fibrillation, Chronic Edema/Swelling, Coronary Artery Disease, High Cholesterol, Hypertension, Irregular Heartbeat Neurological: Yes (PERIPHERAL NEUROPATHY HANDS/FEET; CHRONIC HEADACHES) Headaches /Migraines, Neuropathy, TIA 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 Disorders: No 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 PAIN) Degenerate Disk Disease, Arthritis, Fibromyalgia, Chronic Back Pain, Fractures Endocrine: Yes Diabetes, Insulin dep, Diabetes, Non-Insulin dep HEENT: Yes (S/P BILATERAL CATARACT SURGERY + YAG PROCEDURE;ENT SURG WITH CARDIAC ARREST) Cataract Loss of Vision: Denies Hearing Impairment: Denies Cancer: No Psychosocial: Yes Anxiety, Depression Integumentary: Yes (NELIA INTERTRIGO) Pruritis Blood Disorders: No Adverse Reaction/Blood Tranf: No Family Medical History Alzheimer's disease 19 FATHER Cardiovascular disease 19 FATHER 19 MOTHER Completed stroke 19 MOTHER Hypertension 19 FATHER 19 MOTHER Myocardial infarction 19 FATHER 19 MOTHER No Family History of: Diabetes mellitus PSH: -T12 KYPHOPLASTY -C5-C6 CERVICAL DISCECTOMY WITH FUSION 04/2018 -LAP CORNELIUS FUNDOPLICATION -EGD'S/ESOPHAGEAL DILATIONS/COLONOSCOPIES/POLYPECTOMIES -PACEMAKER/DEFIBRILLATOR -HYSTERECTOMY/BSO -CHOLECYSTECTOMY -APPENDECTOMY -TONSILLECTOMY -OVARIAN CYST SURGERIES X 4 -CYST FROM BACK REMOVED -ENT SURGERY -BILATERAL CARPAL TUNNEL REPAIR PMH: -CHRONIC NECK PAIN WITH CERVICAL RADICULOPATHY -RESTLESS LEG SYNDROME -CHRONIC BACK PAIN -T12 COMPRESSION WITH KYPHOPLASTY -HAS HAD POST OP RESPIRATORY FAILURE IN PAST -HAD CARDIAC ARREST WITH ENT SURGERY -CAROTID DISEASE--40-50% STENOSIS BILAT ICA -PAROXYSMAL A FIB--HAS REFUSED ORAL ANTICOAGULANTS -HX OF V-FIB AND BRADYCARDIA--S/P PACEMAKER/DEFIBRILLATOR -08/23/19--CARDIAC CATH--NO SIGNIFICANT CORONARY ARTERY DISEASE, EF 50% Physical Exam Vital Signs - First Documented 12/24/19 19:15 Temp 36.9 Pulse 97 Resp 20 B/P (MAP) 180/97 (124) Pulse Ox 96 Capillary Refill : Height: 5'4.00" Weight: 215lbs. 0oz. 97.776214zf; 36.00 BMI Method:Stated General Appearance: WD/WN, no apparent distress, obese Eyes: Bilateral Eye Normal Inspection, Bilateral Eye PERRL, Bilateral Eye EOMI Neck: full range of motion Respiratory: chest non-tender, no respiratory distress, no accessory muscle use, other (Coarse cough, end expiratory wheeze noted) Cardiovascular: regular rate, rhythm, no murmur Gastrointestinal: normal bowel sounds, soft, tenderness (Mild tenderness lower abdomen bilaterally) Extremities: normal range of motion, non-tender, normal inspection, no pedal edema Neurologic/Psychiatric: no motor/sensory deficits, alert, normal mood/affect, oriented x 3 Skin: normal color, warm/dry Procedures/Interventions Date of ETT Placement: Apr 21, 2018 Time of ETT Placement: 1744 Progress/Results/Core Measures Suspected Sepsis SIRS Temperature: Pulse: Respiratory Rate: Blood Pressure / Mean: Results/Orders Lab Results Laboratory Tests Test 12/24/19 19:34 Range/Units Urine Color YELLOW Urine Clarity SL CLOUDY Urine pH 5.5 5-9 Urine Specific [place] >=1.030 1.016-1.022 Urine Protein NEGATIVE NEGATIVE Urine Glucose (UA) NEGATIVE NEGATIVE Urine Ketones NEGATIVE NEGATIVE Urine Nitrite NEGATIVE NEGATIVE Urine Bilirubin NEGATIVE NEGATIVE Urine Urobilinogen 0.2 < = 1.0 MG/DL Urine Leukocyte Esterase NEGATIVE NEGATIVE Urine RBC (Auto) NEGATIVE NEGATIVE Urine RBC NONE /HPF Urine WBC 10-25 H /HPF Urine Squamous Epithelial Cells 10-25 H /HPF Urine Crystals PRESENT H /LPF Urine Calcium Oxalate Crystals MODERATE H /LPF Urine Bacteria FEW H /HPF Urine Casts NONE /LPF Urine Mucus SMALL H /LPF Urine Culture Indicated CULTURE PENDING My Orders Orders - JEYSON AUGUSTE MD Ua Culture If Indicated (12/24/19 19:22) Albuterol Inhaler (Ventolin Hfa) (12/24/19 22:00) Albuterol Inhaler (Ventolin Hfa) (12/24/19 19:24) Urinalysis (12/24/19 20:18) Urine Culture (12/24/19 20:18) Ns Iv 1000 Ml (Sodium Chloride 0.9%) (12/24/19 20:18) Diphenhydramine Tablet (Benadryl Tablet) (12/24/19 20:45) Levofloxacin Tablet (Levaquin Tablet) (12/24/19 21:15) Levofloxacin Tablet (Levaquin Tablet) (12/24/19 21:02) Medications Given in ED Current Medications Medications Dose Ordered Sig/Alannah Route Start Time Stop Time Status Last Admin Dose Admin Diphenhydramine HCl 25 mg ONCE ONCE PO 12/24/19 20:45 12/24/19 20:46 DC 12/24/19 21:03 25 MG Levofloxacin 500 mg ONCE ONCE PO 12/24/19 21:15 12/24/19 21:16 12/24/19 21:03 500 MG Vital Signs/I&O 12/24/19 19:15 Temp 36.9 Pulse 97 Resp 20 B/P (MAP) 180/97 (124) Pulse Ox 96 Capillary Refill : Progress Note : Time: 21:05 Progress Note 74-year-old female presents to the emergency room with a chief complaint of shortness of breath, cough, generalized not feeling well/malaise. Evaluation today includes a physical exam, urinalysis as the patient was complaining of persistent urinary tract symptoms. Urinalysis was grossly contaminated and will flagged for culture. She is just having some urinary frequency at this point because she is not having.dysuri I am not going to treat her specifically for this however she does also have a new small amorphous/patchy infiltrate on the left lower lobe of her chest x-ray. This is new from previous chest x-ray obtained around December 10. Concern for superimposed bacterial pneumonia on top of her coronavirus. I am treating her with Levaquin 500 mg. If she does not fact have urinary tract infection this will cover both. Patient is comfortable with the plan of care. All questions have been sought and answered. The patient is stable for discharge at this time. Oxygen saturations at discharge 96 to 99% on room air. She did request to be placed on 2 L of oxygen as she wears this at home. She states the oxygen makes her feel better. I have reviewed with her treatments for cough which includes the Tessalon Perles that she has at home as well as tea with honey. She verbalizes understanding of these and will continue to use them. Diagnostic Imaging Diagonstic Imaging: Xray Comments [facility]. [place], [place] NAME: BRAYDON ARBOLEDA [facility] REC#: [id number] PT STATUS: REG CLI : 1945 PHYSICIAN: NANNETTE REVELES DO ADMIT DATE: 12/24/19/RAD Signed Date of Exam:12/24/19 CHEST PA/LAT (2 VIEW) Clinical indication: Patient COVID positive with increased shortness of air. Exam: Chest x-ray PA and lateral views. Comparisons: Chest x-ray dated 12/10/2019. Findings: Lungs/pleura: There is a small area of amorphous airspace opacity in the left lung base concerning for pneumonia. The remainder of the lungs are clear. There is no pneumothorax. There is no pleural effusion. Mediastinum: Unremarkable. Pulmonary vasculature: Unremarkable. Heart: Stable cardiomegaly. Again seen cardiac pacemaker/AICD overlying the chest. Bones/extrathoracic soft tissue: There are degenerative spurs involving the thoracic spine. Chronic compression fracture deformity with kyphoplasty changes involving a vertebra in the thoracolumbar region. Impression: 1: There is a small area of amorphous airspace opacity in the left lung base concerning for infiltrate/pneumonia. 2: Stable cardiomegaly with no significant pulmonary vascular congestion. Dictated by: Dictated on workstation # [id number] Dict: 12/24/191817 Trans: 12/24/191846 [facility] [id number] Interpreted by: GONZALEZ MCINTYRE MD Electronically signed by: GONZALEZ MCINTYRE MD 12/24/191846 Departure Impression Primary Impression: Coronavirus infection Additional Impression: Pneumonia Qualified Codes: J18.9 - Pneumonia, unspecified organism Disposition: 01 HOME, SELF-CARE Condition: Stable Departure-Patient Inst. Decision time for Depature: 21:08 Referrals: NANNETTE REVELES DO (PCP/Family) Primary Care Physician Patient Instructions: Pneumonia, Adult (DC) Add. Discharge Instructions: Drink fluids to stay well-hydrated. Take the Levaquin prescription as directed for the next 9 days after today. I have sent this prescription to your pharmacy at [facility]. Continue to use your inhaler at home. You can do 2 puffs every 4-6 hours at home as needed for shortness of breath. Continue to use the Tessalon Perles for cough as well as hot tea with honey. If you have any worsening symptoms, new concerns that are emergent please come back to the emergency department for reevaluation. Call your primary care doctor for a follow-up appointment this week. All discharge instructions reviewed with patient and/or family. Voiced understanding. Scripts Levofloxacin (Levofloxacin) 500 Mg Tablet 500 MG PO DAILY for 9 Days, #9 TAB Prov: JEYSON AUGUSTE MD 12/24/19 Copy Copies To 1: NANNETTE REVELES KATHRYN M MD Dec 24, 2019 19:22
[2019-12-24] MEDS ORDERED: RT-ALBUTEROL INHALER HFA (VENTOLIN HFA) 18 GM IH ONE (19:24)
[2019-12-24] MEDS ORDERED: NS IV 1000 ML 1,000 ML IV SCH (20:18)
[2019-12-24 20:27] LABS: BILIRUBIN,URINE NEGATIVE (NEGATIVE); CLARITY,URINE SL CLOUDY; COLOR,URINE YELLOW; GLUCOSE, URINE (UA) NEGATIVE (NEGATIVE); KETONES,URINE NEGATIVE (NEGATIVE); LEUKOCYTE ESTERASE ,URINE NEGATIVE (NEGATIVE); NITRITE,URINE NEGATIVE (NEGATIVE); PH,URINE 5.5 (5-9); PROTEIN,URINE NEGATIVE (NEGATIVE)
[2019-12-24 20:39] LABS: BACTERIA,URINE FEW /HPF; CALCIUM OXALATE CRYSTALS,UR MODERATE /LPF
[2019-12-24] MEDS ORDERED: diphenhydrAMINE 25 MG TAB (BENADRYL) PO ONE (20:45)
[2019-12-24] MEDS ORDERED: LEVOFLOXACIN 500 MG TAB (LEVAQUIN) ONE (21:02)
[2019-12-24] MEDS ORDERED: LEVO500T80 PO (21:11)
[2019-12-24] MEDS ORDERED: LEVOFLOXACIN 500 MG TAB (LEVAQUIN) PO ONE (21:15)
[2019-12-24 21:20] VITALS: BP 142/74
[2019-12-24] MEDS ORDERED: RT-ALBUTEROL INHALER HFA (VENTOLIN HFA) 18 GM IH SCH (22:00)
== END 2019-12-24 21:20 | disposition home or self-care (01) ==
LOC: EDUNIT# 18:04 → ER 18:04
DX: U07.1 COVID-19 (principal); J18.9 Pneumonia, unspecified organism; E66.9 Obesity, unspecified; J44.9 Chronic obstructive pulmonary disease, unspecified; K21.9 Gastro-esophageal reflux disease without esophagitis; I10 Essential (primary) hypertension; E11.9 Type 2 diabetes mellitus without complications; F41.9 Anxiety disorder, unspecified; Z68.36 Body mass index [BMI] 36.0-36.9, adult; Z82.49 Family history of ischemic heart disease and other diseases of the circulatory system; Z95.810 Presence of automatic (implantable) cardiac defibrillator; Z86.73 Personal history of transient ischemic attack (TIA), and cerebral infarction without residual deficits; Z77.22 Contact with and (suspected) exposure to environmental tobacco smoke (acute) (chronic); Z79.4 Long term (current) use of insulin; Z88.0 Allergy status to penicillin; Z88.2 Allergy status to sulfonamides; Z88.8 Allergy status to other drugs, medicaments and biological substances; Z79.82 Long term (current) use of aspirin
CPT/HCPCS: 81000; 87077; 87088; 87186

== ENCOUNTER → 2019-12-24 | Outpatient (CLI) | payer MEDICARE ==
--- NOTE | 2019-12-24 18:28 | Diagnostic Imaging Report ---
Clinical indication: Patient COVID positive with increased shortness of air. Exam: Chest x-ray PA and lateral views. Comparisons: Chest x-ray dated 12/10/2019. Findings: Lungs/pleura: There is a small area of amorphous airspace opacity in the left lung base concerning for pneumonia. The remainder of the lungs are clear. There is no pneumothorax. There is no pleural effusion. Mediastinum: Unremarkable. Pulmonary vasculature: Unremarkable. Heart: Stable cardiomegaly. Again seen cardiac pacemaker/AICD overlying the chest. Bones/extrathoracic soft tissue: There are degenerative spurs involving the thoracic spine. Chronic compression fracture deformity with kyphoplasty changes involving a vertebra in the thoracolumbar region. Impression: 1: There is a small area of amorphous airspace opacity in the left lung base concerning for infiltrate/pneumonia. 2: Stable cardiomegaly with no significant pulmonary vascular congestion. Dictated by: Dictated on workstation # [id number]
== END ==
LOC: RAD 17:41
PROVIDERS: ATTEND Family Medicine
DX: U07.1 COVID-19 (principal); R06.00 Dyspnea, unspecified; I51.7 Cardiomegaly
CPT/HCPCS: 71046

== ENCOUNTER → 2020-01-05 | Outpatient (CLI) | payer MEDICARE ==
[2020-01-05 12:11] LABS: BASOPHILS # (AUTO) 0.1 10^3/uL (0.0-0.1); BASOPHILS % (AUTO) 1 % (0-10); EOSINOPHILS # (AUTO) 0.1 10^3/uL (0.0-0.3); EOSINOPHILS % (AUTO) 1 % (0-10); HEMATOCRIT 43 % (35-52); HEMOGLOBIN 13.7 g/dL (11.5-16.0); LYMPHOCYTES # (AUTO) 1.7 10^3/uL (1.0-4.0); LYMPHOCYTES % (AUTO) 22 % (12-44); MEAN CORPUSCULAR HEMOGLOBIN 29 pg (25-34); MEAN CORPUSCULAR HGB CONC 32 g/dL (32-36); MEAN CORPUSCULAR VOLUME 90 fL (80-99); MEAN PLATELET VOLUME 9.1 fL (9.0-12.2); MONOCYTES # (AUTO) 0.4 10^3/uL (0.0-1.0); MONOCYTES % (AUTO) 6 % (0-12); NEUTROPHILS # (AUTO) 5.2 10^3/uL (1.8-7.8); NEUTROPHILS % (AUTO) 69 % (42-75); PLATELET COUNT 277 10^3/uL (130-400); WHITE BLOOD COUNT 7.5 10^3/uL (4.3-11.0)
[2020-01-05 12:30] LABS: ALANINE AMINOTRANSFERASE 29 U/L (0-55); ALBUMIN 3.8 GM/DL (3.2-4.5); ALKALINE PHOSPHATASE 104 U/L (40-136); BILIRUBIN,TOTAL 0.3 MG/DL (0.1-1.0); BUN/CREATININE RATIO 15; CALCIUM 9.3 MG/DL (8.5-10.1); CARBON DIOXIDE 26 MMOL/L (21-32); CHLORIDE 103 MMOL/L (98-107); CREATININE SERUM 0.81 MG/DL (0.60-1.30); GFR ESTIMATED > 60; GLUCOSE 165 MG/DL (70-105); POTASSIUM 3.8 MMOL/L (3.6-5.0); SODIUM 141 MMOL/L (135-145); TOTAL PROTEIN 6.6 GM/DL (6.4-8.2)
== END ==
LOC: LAB 11:51
PROVIDERS: ATTEND Family Medicine
DX: R50.9 Fever, unspecified (principal); R53.83 Other fatigue
CPT/HCPCS: 36415; 80053; 85025

== ENCOUNTER 2020-01-17 13:11 | Emergency (ER) | payer MEDICARE ==
[~2020-01-17] VITALS: Ht 162 cm; Wt 99.7 kg
[2020-01-17] MEDS ORDERED: LACTATED RINGERS 1,000 ML IV ONE ×2 (14:44→14:45)
[2020-01-17] MEDS ORDERED: CEFEPIME INJECTION 1,000 MG in WATER (STERILE) FOR INJECTION 10 ML IV ONE (14:45)
[2020-01-17] MEDS ORDERED: VANCOMYCIN INJECTION 1,000 MG in NS (IVPB) 250 ML IV SCH (14:45)
[2020-01-17] MEDS ORDERED: RT-ALBUTEROL/IPRATROPIUM 3 ML (DUONEB) VIAL ONE (14:54)
[2020-01-17 14:55] LABS: BASOPHILS # (AUTO) 0.1 10^3/uL (0.0-0.1); BASOPHILS % (AUTO) 1 % (0-10); EOSINOPHILS # (AUTO) 0.1 10^3/uL (0.0-0.3); EOSINOPHILS % (AUTO) 1 % (0-10); HEMATOCRIT 45 % (35-52); HEMOGLOBIN 14.3 g/dL (11.5-16.0); LYMPHOCYTES # (AUTO) 1.8 10^3/uL (1.0-4.0); LYMPHOCYTES % (AUTO) 27 % (12-44); MEAN CORPUSCULAR HEMOGLOBIN 29 pg (25-34); MEAN CORPUSCULAR HGB CONC 32 g/dL (32-36); MEAN CORPUSCULAR VOLUME 91 fL (80-99); MONOCYTES # (AUTO) 0.6 10^3/uL (0.0-1.0); MONOCYTES % (AUTO) 10 % (0-12); NEUTROPHILS # (AUTO) 3.8 10^3/uL (1.8-7.8); NEUTROPHILS % (AUTO) 59 % (42-75); PLATELET COUNT 210 10^3/uL (130-400); WHITE BLOOD COUNT 6.5 10^3/uL (4.3-11.0)
--- NOTE | 2020-01-17 14:55 | ED Respiratory ---
General Chief Complaint: Cough/Cold/Flu Symptoms Stated Complaint: COVID POSITIVE, SYMPTOMS WORSENING Nursing Triage Note: Pt brought to room via wheelchair. Pt complains of low grade fever of 99-100* since night along with cough and intermittent shortness of breath. Pt also complains of migraine headache. pt states she was positive for covid on Dec 10 but has been off quarantine for weeks now. Pt states she does wear oxygen at home at 2 LPM via nasal cannula for COPD history but is not wearing oxygen today upon arrival. Oxygen saturations today on room air is 92%. Source: patient Exam Limitations: no limitations History of Present Illness Date Seen by Provider: Jan 17, 2020 Time Seen by Provider: 14:23 Initial Comments Patient presents to the ER by private conveyance with chief complaint of product luisa cough shortness of air and fever since Saturday, 2 days ago Tmax 102.4. She's been using Tylenol and Motrin. She has a history of COPD. She was diagnosed with COVID 19 on December 09 over a month ago. She was completely over it and then had a bout of pneumonia was on a course of Levaquin outpatient and doing much better for the past week until Saturday. She uses oxygen by nasal cannula at 2 L at baseline. No chest pain, nausea, vomiting, diarrhea. Allergies and Home Medications Allergies Coded Allergies: Penicillins (Unverified Allergy, Severe, Pt has received Cefepime & Ceftriaxone in the past w/o issue, 09/22/19) SWELLING, RASH, ITCHING Sulfa (Sulfonamide Antibiotics) (Verified Allergy, Mild, 09/22/19) RASH aspirin (Verified Adverse Reaction, Mild, ASPIRIN SENSITIVE, 09/22/19) UPSET STOMACH sumatriptan (Verified Adverse Reaction, Mild, PALPITATIONS, 09/22/19) IRRITABLE Home Medications Albuterol Sulfate 0.63 Mg/3 Ml Vial.neb, 0.63 MG IH Q6H PRN for WHEEZING, (Reported) Aspirin 81 Mg Tab.chew, 81 MG PO DAILY, (Reported) Azithromycin 500 Mg Tablet, 500 MG PO DAILY Prescribed by: PETER ASHLEY on 12/10/191935 Benzonatate 100 Mg Capsule, 100-200 MG PO TID Prescribed by: PETER ASHLEY on 12/10/191935 Cefdinir 300 Mg Capsule, 300 MG PO BID Prescribed by: PETER ASHLEY on 12/10/191935 Cholecalciferol (Vitamin D3) 125 Mcg Tablet, 250 MCG PO 1800, (Reported) Dexamethasone 6 Mg Tablet, 6 MG PO DAILY Prescribed by: PETER ASHLEY on 12/10/191935 Diltiazem HCl 240 Mg Cap.er.24h, 240 MG PO DAILY, (Reported) Guaifenesin/Dextromethorphan 1 Each Tbmp.12hr, 1 EACH PO BID Prescribed by: PETER ASHLEY on 12/10/191935 Hydroxyzine HCl 25 Mg Tablet, 25 MG PO for ANXIETY, (Reported) Insulin NPH Human Isophane 100 Unit/1 Ml Vial, 25 UNIT SQ BID Prescribed by: NANNETTE REVELES on 06/29/191246 Levofloxacin 500 Mg Tablet, 500 MG PO DAILY Prescribed by: JEYSON AUGUSTE on 12/24/192110 Lorazepam 0.5 Mg Tablet, 0.5 MG PO QID Prescribed by: NANNETTE REVELES on 06/29/19 124 Magnesium Oxide 400 Mg Tablet, 800 MG PO DAILY, (Reported) TAKES 2 (400MG) TABS Melatonin 3 Mg Tablet, 6 MG PO HS PRN for SLEEP, (Reported) TAKES 2 (3MG) TABS Metoprolol Tartrate 50 Mg Tablet, 100 MG PO BID replaces 25mg dose Prescribed by: NANNETTE REVELES on 06/29/191246 Montelukast Sodium 10 Mg Tablet, 10 MG PO HS Prescribed by: NANNETTE REVELES on 06/29/191246 Omeprazole 40 Mg Capsule.dr, 40 MG PO BID, (Reported) Pramipexole Di-HCl 1 Mg Tablet, 1 MG PO HS, (Reported) LAST FILLED 02-16-2019 #90/90 DAY SUPPLT Patient Home Medication List Home Medication List Reviewed: Yes Review of Systems Review of Systems Constitutional: chills, fever, malaise EENTM: No ear discharge, No ear pain Respiratory: No cough, No short of breath Cardiovascular: No chest pain, No Hx of Intervention Gastrointestinal: No abdominal pain, No constipation, No diarrhea; nausea, vomiting Genitourinary: No discharge, No dysuria Musculoskeletal: No back pain, No joint pain Skin: No pruritus, No rash All Other Systems Reviewed Negative Unless Noted: Yes Past Kfhdpux-Ldkvjq-Zcegll Hx Patient Social History Alcohol Use: Denies Use Recreational Drug Use: No Smoking Status: Never a Smoker 2nd Hand Smoke Exposure: Yes Recent Foreign Travel: No Contact w/Someone Who Travel: No Recent Infectious Disease Expo: Yes (Pt was positive for COvid on 12/11/19) Recent Hopitalizations: No Physical Abuse: No Sexual Abuse: No Mistreated: No Fear: No Immunizations Up To Date Tetanus Booster (TDap): Unknown PED Vaccines UTD: No Date of Pneumonia Vaccine: Apr 04, 2018 Date of Influenza Vaccine: Dec 31, 2018 Seasonal Allergies Seasonal Allergies: Yes Past Medical History Surgeries: Yes (LAP CORNELIUS; C-SPINE FUSION/DISCECTOMY C5-C6 ) Abdominal, Appendectomy, Cardiac, Defibrillator, Eye Surgery, Gallbladder, Hysterectomy, Oophorectomy, Orthopedic, Pacemaker, Tonsillectomy Respiratory: Yes (O2 AT 2L/NC CONTINUOUSLY) Asthma, Pneumonia, Chronic Bronchitis, Sleep Apnea, COPD Currently Using CPAP: No Currently Using BIPAP: No Cardiac: Yes (PACEMAKER/DEFIBRILLATOR;CARDIAC ARREST DURING ENT SURGERY;PSVT/PALPITATIONS) Atrial Fibrillation, Chronic Edema/Swelling, Coronary Artery Disease, High Cholesterol, Hypertension, Irregular Heartbeat Neurological: Yes (PERIPHERAL NEUROPATHY HANDS/FEET; CHRONIC HEADACHES) Headaches /Migraines, Neuropathy, TIA 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 Disorders: No 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 PAIN) Degenerate Disk Disease, Arthritis, Fibromyalgia, Chronic Back Pain, Fractures Endocrine: Yes Diabetes, Insulin dep, Diabetes, Non-Insulin dep HEENT: Yes (S/P BILATERAL CATARACT SURGERY + YAG PROCEDURE;ENT SURG WITH CARDIAC ARREST) Cataract Loss of Vision: Denies Hearing Impairment: Denies Cancer: No Psychosocial: Yes Anxiety, Depression Integumentary: Yes (NELIA INTERTRIGO) Pruritis Blood Disorders: No Adverse Reaction/Blood Tranf: No Family Medical History Alzheimer's disease 19 FATHER Cardiovascular disease 19 FATHER 19 MOTHER Completed stroke 19 MOTHER Hypertension 19 FATHER 19 MOTHER Myocardial infarction 19 FATHER 19 MOTHER No Family History of: Diabetes mellitus PSH: -T12 KYPHOPLASTY -C5-C6 CERVICAL DISCECTOMY WITH FUSION 04/2018 -LAP CORNELIUS FUNDOPLICATION -EGD'S/ESOPHAGEAL DILATIONS/COLONOSCOPIES/POLYPECTOMIES -PACEMAKER/DEFIBRILLATOR -HYSTERECTOMY/BSO -CHOLECYSTECTOMY -APPENDECTOMY -TONSILLECTOMY -OVARIAN CYST SURGERIES X 4 -CYST FROM BACK REMOVED -ENT SURGERY -BILATERAL CARPAL TUNNEL REPAIR PMH: -CHRONIC NECK PAIN WITH CERVICAL RADICULOPATHY -RESTLESS LEG SYNDROME -CHRONIC BACK PAIN -T12 COMPRESSION WITH KYPHOPLASTY -HAS HAD POST OP RESPIRATORY FAILURE IN PAST -HAD CARDIAC ARREST WITH ENT SURGERY -CAROTID DISEASE--40-50% STENOSIS BILAT ICA -PAROXYSMAL A FIB--HAS REFUSED ORAL ANTICOAGULANTS -HX OF V-FIB AND BRADYCARDIA--S/P PACEMAKER/DEFIBRILLATOR -08/23/19--CARDIAC CATH--NO SIGNIFICANT CORONARY ARTERY DISEASE, EF 50% Physical Exam Vital Signs - First Documented Capillary Refill : Less Than 3 Seconds Height: 5'4.00" Weight: 215lbs. 0oz. 97.452482jq; 37.00 BMI Method:Stated General Appearance: WD/WN, mild distress Eyes: Bilateral Eye Normal Inspection, Bilateral Eye PERRL, Bilateral Eye EOMI HEENT: PERRL/EOMI, normal ENT inspection; No pharynx normal (oral mucosa is d ry) Neck: full range of motion, supple, normal inspection Respiratory: no accessory muscle use, respiratory distress ([id number] with oxygen sats 94% on 1 L by nasal cannula.), decreased breath sounds, whee zing (Tight expiratory) Cardiovascular: normal peripheral pulses, regular rate, rhythm Gastrointestinal: normal bowel sounds, non tender Neurologic/Psychiatric: alert, normal mood/affect, oriented x 3 Skin: normal color, warm/dry Focused Exam Lactate Level 01/17/20 14:04: Lactic Acid Level 1.70 Lactic Acid Level Laboratory Tests Test 01/17/20 14:04 Lactic Acid Level 1.70 MMOL/L (0.50-2.00) Procedures/Interventions Date of ETT Placement: Apr 21, 2018 Time of ETT Placement: 1744 Progress/Results/Core Measures Suspected Sepsis Recent Fever Within 48 Hours: Yes Infection Criteria Present: Suspected New Infection New/Unexplained Altered Menta: No Sepsis Screen: No Definite Risk SIRS Temperature: Pulse: 84 Respiratory Rate: 20 Laboratory Tests 01/17/20 14:04: White Blood Count 6.5 Blood Pressure 151 /84 Mean: 106 01/17/20 14:04: Lactic Acid Level 1.70 Laboratory Tests 01/17/20 14:04: Creatinine 0.83, INR Comment 1.0, Platelet Count 210, Total Bilirubin 0.4 Results/Orders Lab Results Laboratory Tests Test 01/17/20 14:04 01/17/20 14:40 01/17/20 14:55 01/17/20 15:18 Range/Units White Blood Count 6.5 4.3-11.0 10^3/uL Red Blood Count 4.94 3.80-5.11 10^6/uL Hemoglobin 14.3 11.5-16.0 g/dL Hematocrit 45 35-52 % Mean Corpuscular Volume 91 80-99 fL Mean Corpuscular Hemoglobin 29 25-34 pg Mean Corpuscular Hemoglobin Concent 32 32-36 g/dL Red Cell Distribution Width 13.7 10.0-14.5 % Platelet Count 210 130-400 10^3/uL Mean Platelet Volume 10.0 9.0-12.2 fL Immature Granulocyte % (Auto) 2 % Neutrophils (%) (Auto) 59 42-75 % Lymphocytes (%) (Auto) 27 12-44 % Monocytes (%) (Auto) 10 0-12 % Eosinophils (%) (Auto) 1 0-10 % Basophils (%) (Auto) 1 0-10 % Neutrophils # (Auto) 3.8 1.8-7.8 10^3/uL Lymphocytes # (Auto) 1.8 1.0-4.0 10^3/uL Monocytes # (Auto) 0.6 0.0-1.0 10^3/uL Eosinophils # (Auto) 0.1 0.0-0.3 10^3/uL Basophils # (Auto) 0.1 0.0-0.1 10^3/uL Immature Granulocyte # (Auto) 0.1 0.0-0.1 10^3/uL Prothrombin Time 13.4 12.2-14.7 SEC INR Comment 1.0 0.8-1.4 Activated Partial Thromboplast Time 23 L 24-35 SEC Sodium Level 138 135-145 MMOL/L Potassium Level 3.8 3.6-5.0 MMOL/L Chloride Level 100 98-107 MMOL/L Carbon Dioxide Level 24 21-32 MMOL/L Anion Gap 14 5-14 MMOL/L Blood Urea Nitrogen 8 7-18 MG/DL Creatinine 0.83 0.60-1.30 MG/DL Estimat Glomerular Filtration Rate > 60 BUN/Creatinine Ratio 10 Glucose Level 203 H 70-105 MG/DL Lactic Acid Level 1.70 0.50-2.00 MMOL/L Calcium Level 9.2 8.5-10.1 MG/DL Corrected Calcium 9.3 8.5-10.1 MG/DL Total Bilirubin 0.4 0.1-1.0 MG/DL Aspartate Amino Transf (AST/SGOT) 51 H 5-34 U/L Alanine Aminotransferase (ALT/SGPT) 43 0-55 U/L Alkaline Phosphatase 100 40-136 U/L C-Reactive Protein High Sensitivity 1.45 H 0.00-0.50 MG/DL Total Protein 6.9 6.4-8.2 GM/DL Albumin 3.9 3.2-4.5 GM/DL Procalcitonin 0.08 <0.10 NG/ML Blood Gas Puncture Site RIGHT RADIAL Blood Gas Patient Temperature 37.1 Arterial Blood pH 7.41 7.37-7.43 Arterial Blood Partial Pressure CO2 41 35-45 MMHG Arterial Blood Partial Pressure O2 73 L 79-93 MMHG Arterial Blood HCO3 26 23-27 MMOL/L Arterial Blood Total CO2 27.6 21.0-31.0 MMOL/L Arterial Blood Oxygen Saturation 96 94-100 % Arterial Blood Base Excess 2.0 -2.5-2.5 MMOL/L Manjit Test YES-POS Blood Gas Ventilator Setting NO Blood Gas Inspired Oxygen 2 Coronavirus 2019 (STEPHANE) Positive H Negative Urine Color YELLOW Urine Clarity CLEAR Urine pH 5.5 5-9 Urine Specific [place] 1.020 1.016-1.022 Urine Protein NEGATIVE NEGATIVE Urine Glucose (UA) NEGATIVE NEGATIVE Urine Ketones TRACE H NEGATIVE Urine Nitrite NEGATIVE NEGATIVE Urine Bilirubin NEGATIVE NEGATIVE Urine Urobilinogen 0.2 < = 1.0 MG/DL Urine Leukocyte Esterase TRACE H NEGATIVE Urine RBC (Auto) NEGATIVE NEGATIVE Urine RBC NONE /HPF Urine WBC NONE /HPF Urine Crystals NONE /LPF Urine Bacteria TRACE /HPF Urine Casts NONE /LPF Urine Mucus NEGATIVE /LPF Urine Culture Indicated NO Micro Results Microbiology 01/17/20 Influenza Types A,B Antigen (YOLIE) - Final, Complete My Orders Orders - ISRAEL ODELL Cbc With Automated Diff (01/17/20 14:44) Comprehensive Metabolic Panel (01/17/20 14:44) Blood Culture (01/17/20 14:44) Sputum Culture (01/17/20 14:44) Urinalysis (01/17/20 14:44) Urine Culture (01/17/20 14:44) Protime With Inr (01/17/20 14:44) Partial Thromboplastin Time (01/17/20 14:44) Chest 1 View, Ap/Pa Only (01/17/20 14:44) Ed Iv/Invasive Line Start (01/17/20 14:44) Ed Iv/Invasive Line Start (01/17/20 14:44) Vital Signs Adult Sepsis Patie Q15M (01/17/20 14:44) O2 (01/17/20 14:44) Remove Rings In Anticipation O (01/17/20 14:44) Lactic Acid Analyzer (01/17/20 14:44) Influenza A And B Antigens (01/17/20 14:44) Lactated Ringers (Lr 1000 Ml Iv Solution (01/17/20 14:44) Cefepime Injection (Maxipime Injection) (01/17/20 14:45) Vancomycin Injection (Vancomycin Injecti (01/17/20 14:45) Lactated Ringers (Lr 1000 Ml Iv Solution (01/17/20 14:45) Covid 19 Inhouse Test (01/17/20 14:44) Hs C Reactive Protein (01/17/20 14:44) Procalcitonin (Pct) (01/17/20 14:44) Arterial Blood Gas (01/17/20 14:44) Albuterol/Ipra Inhalation Soln (Duoneb I (01/17/20 14:54) Vancomycin Injection (Vancomycin Injecti (01/17/20 15:00) Dexamethasone Injection (Decadron Injec (01/17/20 15:30) Dexamethasone Injection (Decadron Inje (01/17/20 15:22) Medications Given in ED Current Medications Medications Dose Ordered Sig/Alannah Route Start Time Stop Time Status Last Admin Dose Admin Albuterol/ Ipratropium 3 ml STK-MED ONCE .ROUTE 01/17/20 14:54 01/17/20 14:56 DC 01/17/20 15:04 3 ML Cefepime HCl 1000 mg/Sterile Water 10 ml @ 200 mls/hr ONCE ONCE IV 01/17/20 14:45 01/17/20 14:47 DC 01/17/20 15:04 200 MLS/HR Dexamethasone Sodium Phosphate 6 mg ONCE ONCE IV 01/17/20 15:30 01/17/20 15:31 DC 01/17/20 15:25 6 MG Lactated Ringer's 1,000 ml @ 0 mls/hr Q0M ONCE IV 01/17/20 14:44 01/17/20 14:47 DC 01/17/20 15:03 1,000 MLS/HR Vital Signs/I&O 01/17/20 01/17/20 13:50 13:50 Temp 37.1 Pulse 84 Resp 20 B/P (MAP) 151/84 (106) Pulse Ox 95 95 O2 Delivery Nasal Cannula Nasal Cannula O2 Flow Rate 2.00 2.00 Capillary Refill : Less Than 3 Seconds Blood Pressure Mean: 106 Progress Note #1: Time: 14:53 Progress Note She has very tight wheezy breath sounds over to give her a DuoNeb. Suspects may have opportunistic bacterial pneumonia. Plan to get chest x-ray labs and do a septic workup based on her tachypnea to cardiac and fever. Plan to get an ABG to help differentiate between COPD and pneumonia. Broad-spectrum antibiotics given her recent hospitalization including cefepime and vancomycin. 2 L of fluid is greater than 20 mL/kg. Progress Note #2: Time: 15:26 Progress Note The patient has COVID-19 again however her influenza is still pending. Labs are largely unremarkable otherwise. Her ABG is consistent with her need for 2 L at baseline supplemental oxygen. If she does not have any evidence of coinfection with influenza or bacterial pneumonia on chest x-ray then she probably does not need to stay in the hospital. Because she is oxygen-dependent however and she is very tight and wheezy in her lungs we will give her 6 mg of Decadron. Diagnostic Imaging Diagonstic Imaging: Xray Plain Films/CT/US/NM/MRI: chest Comments No acute cardiopulmonary process on one view chest x-ray. Reviewed: Reviewed by Me Departure Impression Primary Impression: COVID-19 virus infection Disposition: 01 HOME, SELF-CARE Condition: Stable Departure-Patient Inst. Decision time for Depature: 15:38 Referrals: NANNETTE REVELES DO (PCP/Family) Primary Care Physician Patient Instructions: Coronavirus Disease 2019 (COVID-19) (DC) Add. Discharge Instructions: If you're having worsening shortness of air or requiring increasing doses of oxygen then you should return to the nearest ER for further evaluation. Continue using your breathing treatments as necessary. Decadron 1 tablet daily in the morning for the next 9 days. Quarantine at home for the next 10 days and as well you must be symptom-free for 72 hours. Tessalon Perles 1 capsule every 6 hours as necessary for cough unrelieved by your inhalers. Ondansetron one tablet every 6 hours as necessary for nausea and/or vomiting. Have someone burr picker your medicines and groceries and bring them to your house. All discharge instructions reviewed with patient and/or family. Voiced understanding. Scripts Dexamethasone (Decadron) 6 Mg Tablet 6 MG PO DAILY for 9 Days, #9 TAB 0 Refills Prov: ISRAEL ODELL 01/17/20 Benzonatate (Tessalon Perle) 100 Mg Capsule 100 MG PO Q6H PRN for COUGH, #30 CAP 0 Refills Prov: ISRAEL ODELL 01/17/20 Ondansetron (Ondansetron Odt) 4 Mg Tab.rapdis 4 MG PO Q6H PRN for NAUSEA/VOMITING, #8 TAB 0 Refills Prov: ISRAEL ODELL 01/17/20 Copy Copies To 1: NANNETTE REVELES TITUS J Jan 17, 2020 14:55
[2020-01-17 14:57] LABS: ABG OXYGEN SATURATION 96 % (94-100); ABG PCO2 41 MMHG (35-45); ABG PH 7.41 (7.37-7.43); ABG PO2 73 MMHG (79-93); ABG TCO2 27.6 MMOL/L (21.0-31.0)
[2020-01-17 14:58] LABS: ALLENS TEST YES-POS; INSPIRED O2 2; PATIENT TEMP 37.1; VENTILATOR NO
[2020-01-17 15:00] LABS: ALBUMIN 3.9 GM/DL (3.2-4.5); CHLORIDE 100 MMOL/L (98-107); POTASSIUM 3.8 MMOL/L (3.6-5.0); PROTHROMBIN TIME PATIENT 13.4 SEC (12.2-14.7); SODIUM 138 MMOL/L (135-145)
[2020-01-17] MEDS ORDERED: VANCOMYCIN 2000 MG/NS 500 ML IVPB IV NR ×2 (15:00)
[2020-01-17 15:02] LABS: CALCIUM 9.2 MG/DL (8.5-10.1)
[2020-01-17 15:03] LABS: GLUCOSE 203 MG/DL (70-105); TOTAL PROTEIN 6.9 GM/DL (6.4-8.2)
[2020-01-17 15:04] LABS: CARBON DIOXIDE 24 MMOL/L (21-32)
[2020-01-17 15:05] LABS: BILIRUBIN,TOTAL 0.4 MG/DL (0.1-1.0)
[2020-01-17 15:06] LABS: ALKALINE PHOSPHATASE 100 U/L (40-136)
[2020-01-17 15:07] LABS: CREATININE SERUM 0.83 MG/DL (0.60-1.30); GFR ESTIMATED > 60
[2020-01-17 15:08] LABS: BUN/CREATININE RATIO 10
[2020-01-17 15:09] LABS: ALANINE AMINOTRANSFERASE 43 U/L (0-55)
[2020-01-17 15:25] LABS: BILIRUBIN,URINE NEGATIVE (NEGATIVE); CLARITY,URINE CLEAR; COLOR,URINE YELLOW; GLUCOSE, URINE (UA) NEGATIVE (NEGATIVE); KETONES,URINE TRACE (NEGATIVE); LEUKOCYTE ESTERASE ,URINE TRACE (NEGATIVE); NITRITE,URINE NEGATIVE (NEGATIVE); PH,URINE 5.5 (5-9); PROTEIN,URINE NEGATIVE (NEGATIVE)
[2020-01-17 15:33] LABS: BACTERIA,URINE TRACE /HPF
[2020-01-17] MEDS ORDERED: DEXA6TAB6 PO (15:42)
[2020-01-17] MEDS ORDERED: BENZ-13 PO (15:42)
[2020-01-17] MEDS ORDERED: ONDA4TAB11 PO (15:42)
--- NOTE | 2020-01-17 15:47 | Diagnostic Imaging Report ---
INDICATION: Sepsis. COMPARISON STUDY: Chest from December 23. FINDINGS: Frontal view of the chest demonstrates cardiac pacer remaining in place. Heart size and vascularity are normal. The lungs are clear. There are no pleural effusions. IMPRESSION: There is no acute finding. Dictated by: Dictated on workstation # [id number]
[2020-01-17 16:19] VITALS: BP 145/81
== END 2020-01-17 16:20 | disposition home or self-care (01) ==
LOC: EDUNIT# 13:11 → ER 13:12
DX: U07.1 COVID-19 (principal); F41.9 Anxiety disorder, unspecified; K21.9 Gastro-esophageal reflux disease without esophagitis; I10 Essential (primary) hypertension; J44.9 Chronic obstructive pulmonary disease, unspecified; E11.9 Type 2 diabetes mellitus without complications; Z82.49 Family history of ischemic heart disease and other diseases of the circulatory system; Z95.810 Presence of automatic (implantable) cardiac defibrillator; Z77.22 Contact with and (suspected) exposure to environmental tobacco smoke (acute) (chronic); Z88.0 Allergy status to penicillin; Z88.2 Allergy status to sulfonamides; Z88.8 Allergy status to other drugs, medicaments and biological substances; Z79.4 Long term (current) use of insulin; Z79.82 Long term (current) use of aspirin
CPT/HCPCS: 71045; 80053; 81000; 82805; 83605; 84145; 85025; 85610; 85730; 86141; 87040; 87088; 87804; 94640; 99285; U0002; 36415; 87635

== ENCOUNTER 2020-01-20 10:00 | Emergency (ER) | payer MEDICARE ==
[~2020-01-20] VITALS: Ht 162.5 cm; Wt 99.7 kg
[~2020-01-20 10:00] MED LIST changes: +BENZ-13 PO; +DEXA6TAB6 PO
--- NOTE | 2020-01-20 10:24 | ED General ---
General Stated Complaint: COVID+ FEVER LOW O2 Source of Information: Patient Exam Limitations: No Limitations History of Present Illness Date Seen by Provider: Jan 20, 2020 Time Seen by Provider: 10:25 Initial Comments Patient is a 74-year-old female who presents to the emergency room today with a chief complaint of generalized weakness onset yesterday. Patient states that she is just felt terrible. She states that this is her "second time with Covid". She tested +3 or 4 days ago again after having tested positive the first time on December 09. Patient states that she feels so weak today that she could not raise her arms above her head to brush her hair this morning. She states her oxygen has been low at home down into the 87-88 range. Patient states she has had a cough. It is nonproductive. She complains of mild headache. She complains of alteration in her taste and a diminished appetite. Patient denies any chest pain. She denies abdominal pain. She is not having nausea vomiting or diarrhea. Her has been ill at home with fever as well. She states her highest temperature has been 103. She states she is alternating Tylenol and ibuprofen. Last doses of these medications were at 630 and 830 this morning. Patient denies any urinary difficulty, dysuria, urgency or frequency. All other review of systems reviewed and negative except as stated. Timing/Duration: 1-2 Days Allergies and Home Medications Allergies Coded Allergies: Penicillins (Unverified Allergy, Severe, Pt has received Cefepime & Ceftriaxone in the past w/o issue, 09/22/19) SWELLING, RASH, ITCHING Sulfa (Sulfonamide Antibiotics) (Verified Allergy, Mild, 09/22/19) RASH aspirin (Verified Adverse Reaction, Mild, ASPIRIN SENSITIVE, 09/22/19) UPSET STOMACH sumatriptan (Verified Adverse Reaction, Mild, PALPITATIONS, 09/22/19) IRRITABLE Home Medications Albuterol Sulfate 0.63 Mg/3 Ml Vial.neb, 0.63 MG IH Q6H PRN for WHEEZING, (Reported) Aspirin 81 Mg Tab.chew, 81 MG PO DAILY, (Reported) Azithromycin 500 Mg Tablet, 500 MG PO DAILY Prescribed by: PETER ASHLEY on 12/10/191935 Benzonatate 100 Mg Capsule, 100-200 MG PO TID Prescribed by: PETER ASHLEY on 12/10/191935 Benzonatate 100 Mg Capsule, 100 MG PO Q6H PRN for COUGH Prescribed by: ISRAEL ODELL on 01/17/201541 Cefdinir 300 Mg Capsule, 300 MG PO BID Prescribed by: PETER ASHLEY on 12/10/191935 Cholecalciferol (Vitamin D3) 125 Mcg Tablet, 250 MCG PO 1800, (Reported) Dexamethasone 6 Mg Tablet, 6 MG PO DAILY Prescribed by: PETER ASHLEY on 12/10/191935 Dexamethasone 6 Mg Tablet, 6 MG PO DAILY Prescribed by: ISRAEL ODELL on 01/17/201541 Diltiazem HCl 240 Mg Cap.er.24h, 240 MG PO DAILY, (Reported) Guaifenesin/Dextromethorphan 1 Each Tbmp.12hr, 1 EACH PO BID Prescribed by: PETER ASHLEY on 12/10/191935 Hydroxyzine HCl 25 Mg Tablet, 25 MG PO for ANXIETY, (Reported) Insulin NPH Human Isophane 100 Unit/1 Ml Vial, 25 UNIT SQ BID Prescribed by: NANNETTE REVELES on 06/29/191246 Levofloxacin 500 Mg Tablet, 500 MG PO DAILY Prescribed by: JEYSON AUGUSTE on 12/24/192110 Lorazepam 0.5 Mg Tablet, 0.5 MG PO QID Prescribed by: NANNETTE REVELES on 06/29/19 124 Magnesium Oxide 400 Mg Tablet, 800 MG PO DAILY, (Reported) TAKES 2 (400MG) TABS Melatonin 3 Mg Tablet, 6 MG PO HS PRN for SLEEP, (Reported) TAKES 2 (3MG) TABS Metoprolol Tartrate 50 Mg Tablet, 100 MG PO BID replaces 25mg dose Prescribed by: NANNETTE REVELES on 06/29/19 124 Montelukast Sodium 10 Mg Tablet, 10 MG PO HS Prescribed by: NANNETTE REVELES on 06/29/19 124 Omeprazole 40 Mg Capsule.dr, 40 MG PO BID, (Reported) Ondansetron 4 Mg Tab.rapdis, 4 MG PO Q6H PRN for NAUSEA/VOMITING Prescribed by: ISRAEL ODELL on 01/17/201541 Pramipexole Di-HCl 1 Mg Tablet, 1 MG PO HS, (Reported) LAST FILLED 02-16-2019 #90/90 DAY SUPPLT Patient Home Medication List Home Medication List Reviewed: Yes Review of Systems Review of Systems Constitutional: chills, diaphoresis, fever, malaise, weakness EENTM: throat pain Respiratory: cough, short of breath Cardiovascular: no symptoms reported Gastrointestinal: no symptoms reported Genitourinary: no symptoms reported Musculoskeletal: no symptoms reported Skin: no symptoms reported Psychiatric/Neurological: Anxiety All Other Systems Reviewed Negative Unless Noted: Yes Past Amgivgc-Ysmwff-Dsiukf Hx Patient Social History 2nd Hand Smoke Exposure: Yes Recent Hopitalizations: No Immunizations Up To Date Tetanus Booster (TDap): Unknown PED Vaccines UTD: No Date of Pneumonia Vaccine: Apr 04, 2018 Date of Influenza Vaccine: Dec 31, 2018 Seasonal Allergies Seasonal Allergies: Yes Past Medical History Surgeries: Yes (LAP CORNELIUS; C-SPINE FUSION/DISCECTOMY C5-C6 ) Abdominal, Appendectomy, Cardiac, Defibrillator, Eye Surgery, Gallbladder, Hyste rectomy, Oophorectomy, Orthopedic, Pacemaker, Tonsillectomy Respiratory: Yes (O2 AT 2L/NC CONTINUOUSLY) Asthma, Pneumonia, Chronic Bronchitis, Sleep Apnea, COPD Currently Using CPAP: No Currently Using BIPAP: No Cardiac: Yes (PACEMAKER/DEFIBRILLATOR;CARDIAC ARREST DURING ENT SURGERY;PSVT/PALPITATIONS) Atrial Fibrillation, Chronic Edema/Swelling, Coronary Artery Disease, High Cholesterol, Hypertension, Irregular Heartbeat Neurological: Yes (PERIPHERAL NEUROPATHY HANDS/FEET; CHRONIC HEADACHES) Headaches /Migraines, Neuropathy, TIA 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 Disorders: No Female 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 PAIN) Degenerate Disk Disease, Arthritis, Fibromyalgia, Chronic Back Pain, Fractures Endocrine: Yes Diabetes, Insulin dep, Diabetes, Non-Insulin dep HEENT: Yes (S/P BILATERAL CATARACT SURGERY + YAG PROCEDURE;ENT SURG WITH CARDIAC ARREST) Cataract Loss of Vision: Denies Hearing Impairment: Denies Cancer: No Psychosocial: Yes Anxiety, Depression Integumentary: Yes (NELIA INTERTRIGO) Pruritis Blood Disorders: No Adverse Reaction/Blood Tranf: No Family Medical History Alzheimer's disease 19 FATHER Cardiovascular disease 19 FATHER 19 MOTHER Completed stroke 19 MOTHER Hypertension 19 FATHER 19 MOTHER Myocardial infarction 19 FATHER 19 MOTHER No Family History of: Diabetes mellitus PSH: -T12 KYPHOPLASTY -C5-C6 CERVICAL DISCECTOMY WITH FUSION 04/2018 -LAP CORNELIUS FUNDOPLICATION -EGD'S/ESOPHAGEAL DILATIONS/COLONOSCOPIES/POLYPECTOMIES -PACEMAKER/DEFIBRILLATOR -HYSTERECTOMY/BSO -CHOLECYSTECTOMY -APPENDECTOMY -TONSILLECTOMY -OVARIAN CYST SURGERIES X 4 -CYST FROM BACK REMOVED -ENT SURGERY -BILATERAL CARPAL TUNNEL REPAIR PMH: -CHRONIC NECK PAIN WITH CERVICAL RADICULOPATHY -RESTLESS LEG SYNDROME -CHRONIC BACK PAIN -T12 COMPRESSION WITH KYPHOPLASTY -HAS HAD POST OP RESPIRATORY FAILURE IN PAST -HAD CARDIAC ARREST WITH ENT SURGERY -CAROTID DISEASE--40-50% STENOSIS BILAT ICA -PAROXYSMAL A FIB--HAS REFUSED ORAL ANTICOAGULANTS -HX OF V-FIB AND BRADYCARDIA--S/P PACEMAKER/DEFIBRILLATOR -08/23/19--CARDIAC CATH--NO SIGNIFICANT CORONARY ARTERY DISEASE, EF 50% Physical Exam Vital Signs Vital Signs - First Documented 01/20/20 10:19 Temp 37.9 Pulse 93 Resp 20 B/P (MAP) 140/71 (94) Pulse Ox 93 O2 Delivery Room Air Capillary Refill : Height, Weight, BMI Height: 5'4.00" Weight: 215lbs. 0oz. 97.543542ak; 37.00 BMI Method:Stated General Appearance: No Apparent Distress, WD/WN, Anxious Eyes: Bilateral Eye Normal Inspection, Bilateral Eye PERRL, Bilateral Eye EOMI HEENT: Normal ENT Inspection, Pharynx Normal Neck: Full Range of Motion, Normal Inspection, Supple Respiratory: Lungs Clear, Normal Breath Sounds (Slightly diminished throughout, no inspiratory or expiratory wheezes noted), No Accessory Muscle Use, No Respiratory Distress Cardiovascular: Regular Rate, Rhythm, No Murmur Gastrointestinal: Normal Bowel Sounds, Non Tender, Soft Extremity: Normal Inspection, Normal Range of Motion Neurologic/Psychiatric: Alert, Oriented x3, No Motor/Sensory Deficits, 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, 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 as Tested Skin: Normal Color, Warm/Dry Procedures/Interventions Date of ETT Placement: Apr 21, 2018 Time of ETT Placement: 1744 Progress/Results/Core Measures Suspected Sepsis SIRS Temperature: Pulse: Respiratory Rate: Laboratory Tests 01/20/20 10:45: White Blood Count 6.7 Blood Pressure / Mean: Laboratory Tests 01/20/20 10:45: Creatinine 0.76, Platelet Count 199 Results/Orders Lab Results Laboratory Tests Test 01/20/20 10:45 Range/Units White Blood Count 6.7 4.3-11.0 10^3/uL Red Blood Count 4.62 3.80-5.11 10^6/uL Hemoglobin 13.3 11.5-16.0 g/dL Hematocrit 41 35-52 % Mean Corpuscular Volume 89 80-99 fL Mean Corpuscular Hemoglobin 29 25-34 pg Mean Corpuscular Hemoglobin Concent 32 32-36 g/dL Red Cell Distribution Width 13.7 10.0-14.5 % Platelet Count 199 130-400 10^3/uL Mean Platelet Volume 10.0 9.0-12.2 fL Immature Granulocyte % (Auto) 3 % Neutrophils (%) (Auto) 68 42-75 % Lymphocytes (%) (Auto) 17 12-44 % Monocytes (%) (Auto) 12 0-12 % Eosinophils (%) (Auto) 0 0-10 % Basophils (%) (Auto) 0 0-10 % Neutrophils # (Auto) 4.5 1.8-7.8 10^3/uL Lymphocytes # (Auto) 1.2 1.0-4.0 10^3/uL Monocytes # (Auto) 0.8 0.0-1.0 10^3/uL Eosinophils # (Auto) 0.0 0.0-0.3 10^3/uL Basophils # (Auto) 0.0 0.0-0.1 10^3/uL Immature Granulocyte # (Auto) 0.2 H 0.0-0.1 10^3/uL Sodium Level 138 135-145 MMOL/L Potassium Level 3.4 L 3.6-5.0 MMOL/L Chloride Level 101 98-107 MMOL/L Carbon Dioxide Level 23 21-32 MMOL/L Anion Gap 14 5-14 MMOL/L Blood Urea Nitrogen 14 7-18 MG/DL Creatinine 0.76 0.60-1.30 MG/DL Estimat Glomerular Filtration Rate > 60 BUN/Creatinine Ratio 18 Glucose Level 125 H 70-105 MG/DL Calcium Level 8.3 L 8.5-10.1 MG/DL My Orders Orders - JEYSON AUGUSTE MD Cbc With Automated Diff (01/20/20 11:41) Basic Metabolic Panel (01/20/20 11:41) Chest 1 View, Ap/Pa Only (01/20/20 11:41) Ketorolac Injection (Toradol Injection) (01/20/20 13:00) Diphenhydramine Injection (Benadryl Inje (01/20/20 13:00) Vital Signs/I&O 01/20/20 10:19 Temp 37.9 Pulse 93 Resp 20 B/P (MAP) 140/71 (94) Pulse Ox 93 O2 Delivery Room Air Capillary Refill : Progress Note : Time: 10:39 Progress Note 74-year-old presents with a chief complaint of generalized weakness onset within the last 24 hours. Patient was recently she believes rediagnosed with coronavirus. Evaluation today includes physical exam, CBC, chemistry. Small IV fluid boluses given. Patient states that she has had diminished appetite and oral intake overall. Patient believes her has coronavirus as well. He is checked and to be seen today as well. Diagnostic Imaging Diagonstic Imaging: Xray Plain Films/CT/US/NM/MRI: chest Comments [facility]. [place], [place] NAME: BRAYDON ARBOLEDA [facility] REC#: [id number] PT STATUS: REG ER : 1945 PHYSICIAN: JEYSON AUGUSTE MD ADMIT DATE: 01/20/20/ER Draft Date of Exam:01/20/20 CHEST 1 VIEW, AP/PA ONLY INDICATION: Shortness of breath, cough, fever. COMPARISON: 01/17/2020. TECHNIQUE: Single radiograph of the chest dated 01/20/2020. FINDINGS: The pacer device is again noted with the battery pack overlying the left chest. The cardiac silhouette is enlarged although stable. No significant pulmonary vascular congestion. Mild patchy opacities are suggested overlying the right midlung and left lung base, appearing to be a change from the prior exam. No significant pleural effusion. No pneumothorax. Vertebroplasty changes within the lumbar spine. Post surgical changes within the cervical spine. No acute osseous abnormality. IMPRESSION: Minimal patchy bilateral pulmonary opacities, particularly within the right midlung and left lung base. Findings are suggestive of an infiltrate such as pneumonia. Covid 19 could appear similar. The report was faxed to Infection Control by sil@12:31 PM. Dictated on workstation # [id number] Dict: 01/20/20 1227 Trans: 01/20/20 1231 [id number] Interpreted by: FREDRICK VALENTINO MD Electronically signed by: Departure Impression Primary Impression: COVID-19 virus infection Additional Impressions: Generalized weakness Acute headache Qualified Codes: R51 - Headache Disposition: 01 HOME, SELF-CARE Condition: Stable Departure-Patient Inst. Decision time for Depature: 13:04 Referrals: NANNETTE REVELES DO (PCP/Family) Primary Care Physician Patient Instructions: Headache, Adult (DC), Coronavirus Disease 2019 (COVID-19) (DC) Add. Discharge Instructions: Drink plenty of fluids to stay well-hydrated. Continue to take your home daily prescribed medications. Follow-up with your primary care physician, please call to make a follow-up appointment for next week. Return to the emergency room for any worsening symptoms or further emergent concerns. JEYSON AUGUSTE MD Jan 20, 2020 10:24
[2020-01-20 11:53] LABS: BASOPHILS % (AUTO) 0 % (0-10); EOSINOPHILS % (AUTO) 0 % (0-10); HEMATOCRIT 41 % (35-52); HEMOGLOBIN 13.3 g/dL (11.5-16.0); LYMPHOCYTES # (AUTO) 1.2 10^3/uL (1.0-4.0); LYMPHOCYTES % (AUTO) 17 % (12-44); MEAN CORPUSCULAR HEMOGLOBIN 29 pg (25-34); MEAN CORPUSCULAR HGB CONC 32 g/dL (32-36); MEAN CORPUSCULAR VOLUME 89 fL (80-99); MONOCYTES # (AUTO) 0.8 10^3/uL (0.0-1.0); MONOCYTES % (AUTO) 12 % (0-12); NEUTROPHILS # (AUTO) 4.5 10^3/uL (1.8-7.8); NEUTROPHILS % (AUTO) 68 % (42-75); PLATELET COUNT 199 10^3/uL (130-400); WHITE BLOOD COUNT 6.7 10^3/uL (4.3-11.0)
[2020-01-20 11:57] LABS: CHLORIDE 101 MMOL/L (98-107); POTASSIUM 3.4 MMOL/L (3.6-5.0); SODIUM 138 MMOL/L (135-145)
[2020-01-20 11:59] LABS: CALCIUM 8.3 MG/DL (8.5-10.1); GLUCOSE 125 MG/DL (70-105)
[2020-01-20 12:01] LABS: CARBON DIOXIDE 23 MMOL/L (21-32)
[2020-01-20 12:03] LABS: CREATININE SERUM 0.76 MG/DL (0.60-1.30); GFR ESTIMATED > 60
[2020-01-20 12:04] LABS: BUN/CREATININE RATIO 18
--- NOTE | 2020-01-20 12:31 | Diagnostic Imaging Report ---
INDICATION: Shortness of breath, cough, fever. COMPARISON: 01/17/2020. TECHNIQUE: Single radiograph of the chest dated 01/20/2020. FINDINGS: The pacer device is again noted with the battery pack overlying the left chest. The cardiac silhouette is enlarged although stable. No significant pulmonary vascular congestion. Mild patchy opacities are suggested overlying the right midlung and left lung base, appearing to be a change from the prior exam. No significant pleural effusion. No pneumothorax. Vertebroplasty changes within the lumbar spine. Post surgical changes within the cervical spine. No acute osseous abnormality. IMPRESSION: Minimal patchy bilateral pulmonary opacities, particularly within the right midlung and left lung base. Findings are suggestive of an infiltrate such as pneumonia. Covid 19 could appear similar. The report was faxed to Infection Control by sil@12:31 PM. Dictated by: Dictated on workstation # [id number]
[2020-01-20] MEDS ORDERED: diphenhydrAMINE 50 MG/ML INJ (BENADRYL) IVP ONE (13:00)
[2020-01-20] MEDS ORDERED: KETOROLAC 15 MG/ML VIAL IVP ONE (13:00)
[2020-01-20] MEDS ORDERED: KETOROLAC 30 MG/ML VIAL ONE (13:35)
[2020-01-20 14:12] VITALS: BP 117/76
[2020-01-20] MEDS ORDERED: KETOROLAC 30 MG/ML VIAL IV ONE (14:15)
== END 2020-01-20 14:25 | disposition home or self-care (01) ==
LOC: EDUNIT# 10:00 → ER 10:03
DX: U07.1 COVID-19 (principal); R53.1 Weakness; F41.9 Anxiety disorder, unspecified; J44.9 Chronic obstructive pulmonary disease, unspecified; I10 Essential (primary) hypertension; K21.9 Gastro-esophageal reflux disease without esophagitis; E11.9 Type 2 diabetes mellitus without complications; Z82.49 Family history of ischemic heart disease and other diseases of the circulatory system; Z77.22 Contact with and (suspected) exposure to environmental tobacco smoke (acute) (chronic); Z95.810 Presence of automatic (implantable) cardiac defibrillator; Z88.2 Allergy status to sulfonamides; Z88.0 Allergy status to penicillin; Z88.8 Allergy status to other drugs, medicaments and biological substances; Z79.82 Long term (current) use of aspirin; Z79.4 Long term (current) use of insulin
CPT/HCPCS: 36415; 71045; 80048; 85025

== ENCOUNTER 2020-01-23 16:06 | Emergency (ER) | payer MEDICARE ==
[~2020-01-23] VITALS: Ht 162.5 cm; Wt 99.7 kg
[2020-01-23] MEDS ORDERED: IBUPROFEN 800 MG (MOTRIN) TAB PO ONE (16:15)
--- NOTE | 2020-01-23 16:20 | ED General ---
General Stated Complaint: COVID POSITIVE Source of Information: Patient Exam Limitations: No Limitations History of Present Illness Date Seen by Provider: Jan 23, 2020 Time Seen by Provider: 16:17 Initial Comments To ER with reports that she is coated positive. She states that she is shaky and has a headache and is short of breath. She arrives by EMS accompanied by her who is also COVID positive and hypoxic. She has a history of COPD and wears oxygen around the house. However upon arrival to ER on room air she's 91- 92%. She states that she tested positive on 01/17/20 and became symptomatic on Saturday01/15/20. States this will be the second time she has had Covid this year. Timing/Duration: 1 Week, Constant Severity: Moderate Associated Systoms: Headaches, Weakness Allergies and Home Medications Allergies Coded Allergies: Penicillins (Unverified Allergy, Severe, Pt has received Cefepime & Ceftriaxone in the past w/o issue, 09/22/19) SWELLING, RASH, ITCHING Sulfa (Sulfonamide Antibiotics) (Verified Allergy, Mild, 09/22/19) RASH aspirin (Verified Adverse Reaction, Mild, ASPIRIN SENSITIVE, 09/22/19) UPSET STOMACH sumatriptan (Verified Adverse Reaction, Mild, PALPITATIONS, 09/22/19) IRRITABLE Home Medications Albuterol Sulfate 0.63 Mg/3 Ml Vial.neb, 0.63 MG IH Q6H PRN for WHEEZING, (Reported) Aspirin 81 Mg Tab.chew, 81 MG PO DAILY, (Reported) Azithromycin 500 Mg Tablet, 500 MG PO DAILY Prescribed by: PETER ASHLEY on 12/10/191935 Benzonatate 100 Mg Capsule, 100-200 MG PO TID Prescribed by: PETER ASHLEY on 12/10/191935 Benzonatate 100 Mg Capsule, 100 MG PO Q6H PRN for COUGH Prescribed by: ISRAEL ODELL on 01/17/20 1542 Cefdinir 300 Mg Capsule, 300 MG PO BID Prescribed by: PETER ASHLEY on 12/10/191935 Cholecalciferol (Vitamin D3) 125 Mcg Tablet, 250 MCG PO 1800, (Reported) Dexamethasone 6 Mg Tablet, 6 MG PO DAILY Prescribed by: PETER ASHLEY on 12/10/191935 Dexamethasone 6 Mg Tablet, 6 MG PO DAILY Prescribed by: ISRAEL ODELL on 01/17/20 1542 Diltiazem HCl 240 Mg Cap.er.24h, 240 MG PO DAILY, (Reported) Guaifenesin/Dextromethorphan 1 Each Tbmp.12hr, 1 EACH PO BID Prescribed by: PETER ASHLEY on 12/10/191935 Hydroxyzine HCl 25 Mg Tablet, 25 MG PO for ANXIETY, (Reported) Insulin NPH Human Isophane 100 Unit/1 Ml Vial, 25 UNIT SQ BID Prescribed by: NANNETTE REVELES on 06/29/19 1247 Levofloxacin 500 Mg Tablet, 500 MG PO DAILY Prescribed by: JEYSON AUGUSTE on 12/24/192110 Lorazepam 0.5 Mg Tablet, 0.5 MG PO QID Prescribed by: NANNETTE REVELES on 06/29/19 1247 Magnesium Oxide 400 Mg Tablet, 800 MG PO DAILY, (Reported) TAKES 2 (400MG) TABS Melatonin 3 Mg Tablet, 6 MG PO HS PRN for SLEEP, (Reported) TAKES 2 (3MG) TABS Metoprolol Tartrate 50 Mg Tablet, 100 MG PO BID replaces 25mg dose Prescribed by: NANNETTE REVELES on 06/29/19 1247 Montelukast Sodium 10 Mg Tablet, 10 MG PO HS Prescribed by: NANNETTE REVELES on 06/29/19 124 Omeprazole 40 Mg Capsule.dr, 40 MG PO BID, (Reported) Ondansetron 4 Mg Tab.rapdis, 4 MG PO Q6H PRN for NAUSEA/VOMITING Prescribed by: ISRAEL ODELL on 01/17/20 154 Pramipexole Di-HCl 1 Mg Tablet, 1 MG PO HS, (Reported) LAST FILLED 02-16-2019 #90/90 DAY SUPPLT Patient Home Medication List Home Medication List Reviewed: Yes Review of Systems Review of Systems Constitutional: see HPI EENTM: see HPI Respiratory: see HPI, cough, dyspnea on exertion Cardiovascular: no symptoms reported Genitourinary: no symptoms reported Musculoskeletal: no symptoms reported Skin: no symptoms reported Psychiatric/Neurological: No Symptoms Reported Hematologic/Lymphatic: No Symptoms Reported Immunological/Allergic: no symptoms reported Past Kuuixao-Jesqyn-Cbbosj Hx Patient Social History 2nd Hand Smoke Exposure: Yes Recent Hopitalizations: No Immunizations Up To Date Tetanus Booster (TDap): Unknown PED Vaccines UTD: No Date of Pneumonia Vaccine: Apr 04, 2018 Date of Influenza Vaccine: Dec 31, 2018 Seasonal Allergies Seasonal Allergies: Yes Past Medical History Surgeries: Yes (LAP CORNELIUS; C-SPINE FUSION/DISCECTOMY C5-C6 ) Abdominal, Appendectomy, Cardiac, Defibrillator, Eye Surgery, Gallbladder, Hysterectomy, Oophorectomy, Orthopedic, Pacemaker, Tonsillectomy Respiratory: Yes (O2 AT 2L/NC CONTINUOUSLY) Asthma, Pneumonia, Chronic Bronchitis, Sleep Apnea, COPD Currently Using CPAP: No Currently Using BIPAP: No Cardiac: Yes (PACEMAKER/DEFIBRILLATOR;CARDIAC ARREST DURING ENT SURGERY;PSVT/PALPITATIONS) Atrial Fibrillation, Chronic Edema/Swelling, Coronary Artery Disease, High Cholesterol, Hypertension, Irregular Heartbeat Neurological: Yes (PERIPHERAL NEUROPATHY HANDS/FEET; CHRONIC HEADACHES) Headaches /Migraines, Neuropathy, TIA 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 Disorders: No Female 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 Disorders: Denies 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 PAIN) Degenerate Disk Disease, Arthritis, Fibromyalgia, Chronic Back Pain, Fractures Endocrine: Yes Diabetes, Insulin dep, Diabetes, Non-Insulin dep HEENT: Yes (S/P BILATERAL CATARACT SURGERY + YAG PROCEDURE;ENT SURG WITH CARDIAC ARREST) Cataract Loss of Vision: Denies Hearing Impairment: Denies Cancer: No Psychosocial: Yes Anxiety, Depression Integumentary: Yes (NELIA INTERTRIGO) Pruritis Blood Disorders: No Adverse Reaction/Blood Tranf: No Family Medical History Alzheimer's disease 19 FATHER Cardiovascular disease 19 FATHER 19 MOTHER Completed stroke 19 MOTHER Hypertension 19 FATHER 19 MOTHER Myocardial infarction 19 FATHER 19 MOTHER No Family History of: Diabetes mellitus PSH: -T12 KYPHOPLASTY -C5-C6 CERVICAL DISCECTOMY WITH FUSION 04/2018 -LAP CORNELIUS FUNDOPLICATION -EGD'S/ESOPHAGEAL DILATIONS/COLONOSCOPIES/POLYPECTOMIES -PACEMAKER/DEFIBRILLATOR -HYSTERECTOMY/BSO -CHOLECYSTECTOMY -APPENDECTOMY -TONSILLECTOMY -OVARIAN CYST SURGERIES X 4 -CYST FROM BACK REMOVED -ENT SURGERY -BILATERAL CARPAL TUNNEL REPAIR PMH: -CHRONIC NECK PAIN WITH CERVICAL RADICULOPATHY -RESTLESS LEG SYNDROME -CHRONIC BACK PAIN -T12 COMPRESSION WITH KYPHOPLASTY -HAS HAD POST OP RESPIRATORY FAILURE IN PAST -HAD CARDIAC ARREST WITH ENT SURGERY -CAROTID DISEASE--40-50% STENOSIS BILAT ICA -PAROXYSMAL A FIB--HAS REFUSED ORAL ANTICOAGULANTS -HX OF V-FIB AND BRADYCARDIA--S/P PACEMAKER/DEFIBRILLATOR -08/23/19--CARDIAC CATH--NO SIGNIFICANT CORONARY ARTERY DISEASE, EF 50% Physical Exam Vital Signs Vital Signs - First Documented 01/23/20 16:07 Temp 38.3 Pulse 102 Resp 24 B/P (MAP) 144/91 (108) Pulse Ox 94 O2 Delivery Room Air Capillary Refill : Height, Weight, BMI Height: 5'4.00" Weight: 215lbs. 0oz. 97.769547pj; 37.00 BMI Method:Stated General Appearance: No Apparent Distress, WD/WN, Other (no distress, oxygen 91- 92% room air. Goes up to 97% on her baseline 2L. Lungs are clear, a bit diminished but better air movement than I've heard on her in the past.) Neck: Full Range of Motion, Normal Inspection Respiratory: Lungs Clear, No Accessory Muscle Use, No Respiratory Distress Cardiovascular: Normal Peripheral Pulses, Tachycardia Gastrointestinal: Normal Bowel Sounds, Non Tender, Soft Neurologic/Psychiatric: Alert, Oriented x3 Skin: Normal Color, Warm/Dry Procedures/Interventions Date of ETT Placement: Apr 21, 2018 Time of ETT Placement: 1744 Progress/Results/Core Measures Suspected Sepsis SIRS Temperature: Pulse: Respiratory Rate: Laboratory Tests 01/23/20 16:30: White Blood Count 5.2 Blood Pressure / Mean: Laboratory Tests 01/23/20 16:30: Creatinine 0.86, Platelet Count 194, Total Bilirubin 0.6 Results/Orders Lab Results Laboratory Tests Test 01/23/20 16:30 01/23/20 16:35 Range/Units White Blood Count 5.2 4.3-11.0 10^3/uL Red Blood Count 4.69 3.80-5.11 10^6/uL Hemoglobin 13.7 11.5-16.0 g/dL Hematocrit 43 35-52 % Mean Corpuscular Volume 91 80-99 fL Mean Corpuscular Hemoglobin 29 25-34 pg Mean Corpuscular Hemoglobin Concent 32 32-36 g/dL Red Cell Distribution Width 13.6 10.0-14.5 % Platelet Count 194 130-400 10^3/uL Mean Platelet Volume 9.2 9.0-12.2 fL Immature Granulocyte % (Auto) 1 % Neutrophils (%) (Auto) 72 42-75 % Lymphocytes (%) (Auto) 19 12-44 % Monocytes (%) (Auto) 8 0-12 % Eosinophils (%) (Auto) 0 0-10 % Basophils (%) (Auto) 0 0-10 % Neutrophils # (Auto) 3.8 1.8-7.8 10^3/uL Lymphocytes # (Auto) 1.0 1.0-4.0 10^3/uL Monocytes # (Auto) 0.4 0.0-1.0 10^3/uL Eosinophils # (Auto) 0.0 0.0-0.3 10^3/uL Basophils # (Auto) 0.0 0.0-0.1 10^3/uL Immature Granulocyte # (Auto) 0.1 0.0-0.1 10^3/uL Sodium Level 138 135-145 MMOL/L Potassium Level 3.6 3.6-5.0 MMOL/L Chloride Level 100 98-107 MMOL/L Carbon Dioxide Level 20 L 21-32 MMOL/L Anion Gap 18 H 5-14 MMOL/L Blood Urea Nitrogen 9 7-18 MG/DL Creatinine 0.86 0.60-1.30 MG/DL Estimat Glomerular Filtration Rate > 60 BUN/Creatinine Ratio 10 Glucose Level 191 H 70-105 MG/DL Calcium Level 8.6 8.5-10.1 MG/DL Corrected Calcium 8.7 8.5-10.1 MG/DL Total Bilirubin 0.6 0.1-1.0 MG/DL Aspartate Amino Transf (AST/SGOT) 29 5-34 U/L Alanine Aminotransferase (ALT/SGPT) 24 0-55 U/L Alkaline Phosphatase 83 40-136 U/L C-Reactive Protein High Sensitivity 4.11 H 0.00-0.50 MG/DL B-Type Natriuretic Peptide < 10.0 <100.0 PG/ML Total Protein 6.9 6.4-8.2 GM/DL Albumin 3.9 3.2-4.5 GM/DL Procalcitonin 0.04 <0.10 NG/ML Blood Gas Puncture Site L RAD Blood Gas Patient Temperature 101.2 Arterial Blood pH 7.44 H 7.37-7.43 Arterial Blood Partial Pressure CO2 35 35-45 MMHG Arterial Blood Partial Pressure O2 73 L 79-93 MMHG Arterial Blood HCO3 23 23-27 MMOL/L Arterial Blood Total CO2 24.0 21.0-31.0 MMOL/L Arterial Blood Oxygen Saturation 93 L 94-100 % Arterial Blood Base Excess -0.4 -2.5-2.5 MMOL/L Manjit Test YES-POS Blood Gas Ventilator Setting NO Blood Gas Inspired Oxygen ROOM AIR My Orders Orders - EARNESTINE CAMARGO APRN Procalcitonin (Pct) (01/23/20 16:12) Hs C Reactive Protein (01/23/20 16:12) BNP (01/23/20 16:12) Cbc With Automated Diff (01/23/20 16:12) Comprehensive Metabolic Panel (01/23/20 16:12) Ed Iv/Invasive Line Start (01/23/20 16:12) Chest 1 View, Ap/Pa Only (01/23/20 16:12) Ed Iv/Invasive Line Start (01/23/20 16:12) Ibuprofen Tablet (Motrin Tablet) (01/23/20 16:15) Arterial Blood Gas (01/23/20 16:37) Medications Given in ED Current Medications Medications Dose Ordered Sig/Alannah Route Start Time Stop Time Status Last Admin Dose Admin Ibuprofen 800 mg ONCE ONCE PO 01/23/20 16:15 01/23/20 16:16 DC 01/23/20 16:57 800 MG Vital Signs/I&O 01/23/20 01/23/20 16:07 18:30 Temp 38.3 38.3 Pulse 102 102 Resp 24 24 B/P (MAP) 144/91 (108) 144/91 (108) Pulse Ox 94 94 O2 Delivery Room Air Nasal Cannula Capillary Refill : Diagnostic Imaging Diagonstic Imaging: Xray Comments NAME: BRAYDON ARBOLEDA MED REC#: [id number] PT STATUS: REG ER : 1945 PHYSICIAN: EARNESTINE CAMARGO APRN ADMIT DATE: 01/23/20/ER Draft Date of Exam:01/23/20 CHEST 1 VIEW, AP/PA ONLY INDICATION: Covid positive patient. COMPARISON: 01/20/2020. EXAMINATION: Single frontal radiographic view of the chest was obtained. FINDINGS: Stable cardiac silhouette and pulmonary vasculature. Left-sided AICD is noted. Lungs show slight diffuse prominence of the interstitium. There is no large effusion or pneumothorax. Osseous structures show no gross acute abnormality. IMPRESSION: Mild diffuse prominence of the interstitium suspicious for interstitial pneumonia. Interstitial edema may have a similar appearance. Dictated on workstation # [id number] Dict: 01/23/20 1726 Trans: 01/23/20 1728 [facility] [id number] Interpreted by: ROLDAN QUEEN MD Electronically signed by: Departure Impression Primary Impression: COVID-19 virus infection Disposition: 01 HOME, SELF-CARE Condition: Stable Departure-Patient Inst. Decision time for Depature: 17:33 Referrals: NANNETTE REVELES DO (PCP/Family) Primary Care Physician Patient Instructions: Coronavirus Disease 2019 (COVID-19) Overview Add. Discharge Instructions: 1. Use Tylenol preferentially for fever control, if this does not adequately control your fevers then you can also use ibuprofen. Return to ER for any worsening. Follow-up with your doctor next week. EARNESTINE CAMARGO [employer] Jan 23, 2020 16:20
[2020-01-23 16:37] LABS: BASOPHILS % (AUTO) 0 % (0-10); EOSINOPHILS % (AUTO) 0 % (0-10); HEMATOCRIT 43 % (35-52); HEMOGLOBIN 13.7 g/dL (11.5-16.0); LYMPHOCYTES % (AUTO) 19 % (12-44); MEAN CORPUSCULAR HEMOGLOBIN 29 pg (25-34); MEAN CORPUSCULAR HGB CONC 32 g/dL (32-36); MEAN CORPUSCULAR VOLUME 91 fL (80-99); MEAN PLATELET VOLUME 9.2 fL (9.0-12.2); MONOCYTES # (AUTO) 0.4 10^3/uL (0.0-1.0); MONOCYTES % (AUTO) 8 % (0-12); NEUTROPHILS # (AUTO) 3.8 10^3/uL (1.8-7.8); NEUTROPHILS % (AUTO) 72 % (42-75); PLATELET COUNT 194 10^3/uL (130-400); WHITE BLOOD COUNT 5.2 10^3/uL (4.3-11.0)
[2020-01-23 16:43] LABS: ABG BASE EXCESS -0.4 MMOL/L (-2.5-2.5); ABG OXYGEN SATURATION 93 % (94-100); ABG PCO2 35 MMHG (35-45); ABG PH 7.44 (7.37-7.43); ABG PO2 73 MMHG (79-93); ALLENS TEST YES-POS
[2020-01-23 16:44] LABS: INSPIRED O2 ROOM AIR; VENTILATOR NO
[2020-01-23 16:45] LABS: PATIENT TEMP 101.2
[2020-01-23 16:49] LABS: ALBUMIN 3.9 GM/DL (3.2-4.5); CHLORIDE 100 MMOL/L (98-107); POTASSIUM 3.6 MMOL/L (3.6-5.0); SODIUM 138 MMOL/L (135-145)
[2020-01-23 16:50] LABS: CALCIUM 8.6 MG/DL (8.5-10.1)
[2020-01-23 16:51] LABS: GLUCOSE 191 MG/DL (70-105); TOTAL PROTEIN 6.9 GM/DL (6.4-8.2)
[2020-01-23 16:53] LABS: BILIRUBIN,TOTAL 0.6 MG/DL (0.1-1.0); CARBON DIOXIDE 20 MMOL/L (21-32)
[2020-01-23 16:55] LABS: ALKALINE PHOSPHATASE 83 U/L (40-136); CREATININE SERUM 0.86 MG/DL (0.60-1.30); GFR ESTIMATED > 60
[2020-01-23 16:56] LABS: BUN/CREATININE RATIO 10
[2020-01-23 16:58] LABS: ALANINE AMINOTRANSFERASE 24 U/L (0-55)
--- NOTE | 2020-01-23 17:29 | Diagnostic Imaging Report ---
INDICATION: Covid positive patient. COMPARISON: 01/20/2020. EXAMINATION: Single frontal radiographic view of the chest was obtained. FINDINGS: Stable cardiac silhouette and pulmonary vasculature. Left-sided AICD is noted. Lungs show slight diffuse prominence of the interstitium. There is no large effusion or pneumothorax. Osseous structures show no gross acute abnormality. IMPRESSION: Mild diffuse prominence of the interstitium suspicious for interstitial pneumonia. Interstitial edema may have a similar appearance. Dictated by: Dictated on workstation # [id number]
[2020-01-23 18:30] VITALS: BP 144/91
== END 2020-01-23 18:30 | disposition home or self-care (01) ==
LOC: EDUNIT# 16:06 → ER 16:07
DX: B34.2 Coronavirus infection, unspecified (principal); E11.42 Type 2 diabetes mellitus with diabetic polyneuropathy; I10 Essential (primary) hypertension; I25.10 Atherosclerotic heart disease of native coronary artery without angina pectoris; I48.0 Paroxysmal atrial fibrillation; K21.9 Gastro-esophageal reflux disease without esophagitis; F41.9 Anxiety disorder, unspecified; F32.9 Major depressive disorder, single episode, unspecified; G43.909 Migraine, unspecified, not intractable, without status migrainosus; J44.9 Chronic obstructive pulmonary disease, unspecified; Z77.22 Contact with and (suspected) exposure to environmental tobacco smoke (acute) (chronic); Z87.81 Personal history of (healed) traumatic fracture; Z86.79 Personal history of other diseases of the circulatory system; Z99.81 Dependence on supplemental oxygen; Z86.73 Personal history of transient ischemic attack (TIA), and cerebral infarction without residual deficits; Z87.442 Personal history of urinary calculi; Z86.010 Personal history of colon polyps; Z87.440 Personal history of urinary (tract) infections; Z88.0 Allergy status to penicillin; Z88.2 Allergy status to sulfonamides; Z88.6 Allergy status to analgesic agent; Z88.8 Allergy status to other drugs, medicaments and biological substances; Z79.82 Long term (current) use of aspirin; Z79.4 Long term (current) use of insulin; Z95.810 Presence of automatic (implantable) cardiac defibrillator
CPT/HCPCS: 36415; 71045; 80053; 82805; 83880; 84145; 85025; 86141

== ENCOUNTER 2020-01-28 20:57 | Inpatient (IN) | payer MEDICARE ==
[~2020-01-28] VITALS: Ht 167 cm; Wt 95.6 kg
[~2020-01-28 20:57] MED LIST changes: -MONT10TA26 PO; +MONT10TA97 PO
[2020-01-28] MEDS ORDERED: ALBUTEROL/IPRATROP (COMBIVENT RESPIMAT) 4 GM INHALER ONE (21:04)
[2020-01-28] MEDS ORDERED: ADVAIR HFA 115/21 MCG INHALER 8 GM IH ONE (21:04)
[2020-01-28 21:20] LABS: BASOPHILS % (AUTO) 0 % (0-10); HEMOGLOBIN 13.9 g/dL (11.5-16.0); LYMPHOCYTES % (AUTO) 13 % (12-44)
[2020-01-28 21:22] LABS: EOSINOPHILS # (AUTO) 0.1 10^3/uL (0.0-0.3); EOSINOPHILS % (AUTO) 1 % (0-10); HEMATOCRIT 43 % (35-52); LYMPHOCYTES # (AUTO) 1.3 10^3/uL (1.0-4.0); MEAN CORPUSCULAR HEMOGLOBIN 28 pg (25-34); MEAN CORPUSCULAR HGB CONC 32 g/dL (32-36); MEAN CORPUSCULAR VOLUME 89 fL (80-99); MEAN PLATELET VOLUME 9.6 fL (9.0-12.2); MONOCYTES # (AUTO) 0.7 10^3/uL (0.0-1.0); MONOCYTES % (AUTO) 7 % (0-12); NEUTROPHILS # (AUTO) 7.8 10^3/uL (1.8-7.8); NEUTROPHILS % (AUTO) 78 % (42-75); PLATELET COUNT 259 10^3/uL (130-400); WHITE BLOOD COUNT 9.9 10^3/uL (4.3-11.0)
[2020-01-28 21:27] LABS: ALBUMIN 3.4 GM/DL (3.2-4.5); CHLORIDE 103 MMOL/L (98-107); POTASSIUM 3.6 MMOL/L (3.6-5.0); SODIUM 139 MMOL/L (135-145)
[2020-01-28 21:28] LABS: CALCIUM 8.4 MG/DL (8.5-10.1)
[2020-01-28 21:29] LABS: GLUCOSE 171 MG/DL (70-105); TOTAL PROTEIN 6.5 GM/DL (6.4-8.2)
[2020-01-28 21:30] LABS: CARBON DIOXIDE 17 MMOL/L (21-32)
[2020-01-28 21:31] LABS: BILIRUBIN,TOTAL 0.4 MG/DL (0.1-1.0)
[2020-01-28 21:33] LABS: ALKALINE PHOSPHATASE 96 U/L (40-136); CREATININE SERUM 0.79 MG/DL (0.60-1.30); GFR ESTIMATED > 60
[2020-01-28 21:34] LABS: BUN/CREATININE RATIO 13
[2020-01-28 21:36] LABS: ALANINE AMINOTRANSFERASE 11 U/L (0-55); CREATINE KINASE 92 U/L (29-168); MAGNESIUM 1.8 MG/DL (1.6-2.4)
[2020-01-28 21:48] LABS: CREATINE KINASE MB 2.6 NG/ML (<6.6)
[2020-01-28 21:53] LABS: ABG BASE EXCESS -3.2 MMOL/L (-2.5-2.5); ABG OXYGEN SATURATION 99 % (94-100); ABG PCO2 30 MMHG (35-45); ABG PH 7.44 (7.37-7.43); ABG PO2 110 MMHG (79-93); ABG TCO2 21.4 MMOL/L (21.0-31.0)
[2020-01-28 21:56] LABS: ALLENS TEST POSITIVE; INSPIRED O2 RA; PATIENT TEMP 36.2; VENTILATOR NO
[2020-01-28 22:00] LABS: LYMPHOCYTES % (MANUAL) 16 %; MONOCYTES % (MANUAL) 4 %; NEUTROPHILS % (MANUAL) 80 %; RBC MORPH NORMAL
[2020-01-28 22:01] LABS: ERYTHROCYTE SEDIMENTATION RATE 27 MM/HR (0-30)
[2020-01-28 22:31] LABS: CLARITY,URINE CLEAR; COLOR,URINE YELLOW; GLUCOSE, URINE (UA) NEGATIVE (NEGATIVE); KETONES,URINE 3+ (NEGATIVE); LEUKOCYTE ESTERASE ,URINE NEGATIVE (NEGATIVE); NITRITE,URINE NEGATIVE (NEGATIVE); PROTEIN,URINE TRACE (NEGATIVE)
[2020-01-28 22:43] LABS: BILIRUBIN,URINE NEGATIVE (NEGATIVE)
[2020-01-28 22:44] LABS: BACTERIA,URINE TRACE /HPF; WBC,URINE 0-2 /HPF; YEAST,URINE MODERATE /HPF
[2020-01-28] MEDS ORDERED: ENOXAPARIN 100 MG/1 ML (LOVENOX) SYR SC ONE (22:45)
[2020-01-28 22:48] LABS: AMPHETAMINE SCREEN, URINE NEGATIVE (NEGATIVE); BARBITURATE SCREEN URINE NEGATIVE (NEGATIVE); BENZODIAZEPINES SCREEN URINE POSITIVE (NEGATIVE); CANNABINOID SCREEN, URINE NEGATIVE (NEGATIVE); COCAINE SCREEN URINE NEGATIVE (NEGATIVE); METHADONE STAT NEGATIVE (NEGATIVE); METHAMPHETAMINE SCREEN URINE S NEGATIVE (NEGATIVE); OPIATE SCREEN URINE NEGATIVE (NEGATIVE); OXYCODONE STAT NEGATIVE (NEGATIVE); PROPOXYPHENE STAT NEGATIVE (NEGATIVE); TRICYCLIC ANTIDEPRESSANTS SCRE NEGATIVE (NEGATIVE)
[2020-01-28] MEDS ORDERED: ENOXAPARIN 100 MG/1 ML (LOVENOX) SYR ONE (22:49)
[2020-01-28] MEDS ORDERED: NS IV 1000 ML 1,000 ML IV SCH (23:14)
[2020-01-29] VITALS (12 sets, daily range): BP systolic 103–127; BP diastolic 63–91
[2020-01-29 00:55] LABS: FIBRIN DEGRADATION PRODUCTS 15.81 UG/ML (0.00-0.49); PROTHROMBIN TIME PATIENT 13.7 SEC (12.2-14.7)
[2020-01-29] MEDS ORDERED: IOHEXOL 350 MG/ML 100 ML (OMNIPAQUE 350) VIAL IV ONE (01:00)
[2020-01-29] MEDS ORDERED: NS 100 ML (IVPB) BAG IV ONE (01:00)
[2020-01-29] MEDS ORDERED: HOLD METFORMIN - RECEIVED CONTRAST 20 ML VIAL IV SCH (01:00)
[2020-01-29] MEDS ORDERED: ENOXAPARIN 30 MG/0.3 ML (LOVENOX) SYR SC ONE (01:15)
[2020-01-29] MEDS ORDERED: VANCOMYCIN INJECTION 1,000 MG in NS (IVPB) 250 ML IV SCH (01:30)
[2020-01-29] MEDS ORDERED: CEFEPIME INJECTION 2,000 MG in WATER (STERILE) FOR INJECTION 20 ML IV ONE (01:30)
--- NOTE | 2020-01-29 03:08 | ED Respiratory ---
General Chief Complaint: Respiratory Problems Stated Complaint: COVID/SOB Nursing Triage Note: PT ARRIVES TO ER BY EMS WITH C/O SOB FOR A FEW DAYS AND SHE IS COVID + SINCE LAST WEEK. PT HAS NOT BEEN EATING OR DRINKING AT ALL FOR ABOUT 2 WEEKS SHE STATES. Source: patient, EMS, old records History of Present Illness Date Seen by Provider: Jan 28, 2020 Time Seen by Provider: 20:57 Initial Comments PT ARRIVES VIA EMS FROM HOME PT TESTED + FOR COVID-19 ON 12/10/19, AND HAS HAD COVID-19 WELL HAS BEEN IN THE HOSPITAL FROM 01/23/20 AND WAS DISMISSED THIS AFTERNOON FOR COVID-19 WITH HYPOXIA PT HAS BEEN TO THIS ER 7 TIMES SINCE 12/10/19 FOR COVID-RELATED COMPLAINTS. PT WAS PRESCRIBED CEFDINIR, ZITHROMAX, DEXAMETHASONE,TESSALON AND MUCINEX DM ON 12/10/19 WAS PRESCRIBED LEVAQUIN ON 12/24/19 WAS PRESCRIBED ZOFRAN, DEXAMETHASONE AND TESSALON ON 01/16 PT HAS ALSO [address] REVELES IN BETWEEN ER VISITS. PT STATES SHE HAS CONTINUED TO RUN A FEVER OF 101-102 EVERY DAY SINCE SHE WAS DX IN DECEMBER. STATES SHE HAD FEVER OF 102 THIS AFTERNOON STATES SHE HAS HAD INCREASED SHORTNESS OF BREATH THE LAST 2 DAYS, ALONG WITH CHEST PAIN AND PAIN WITH BREATHING THE LAST COUPLE OF DAYS PT WEARS HOME O2 AT 2L/NC CONTINUOUSLY NORMALLY, AND HAS COPD. EMS REPORT THAT O2 SAT WAS 82% ON 4L/NC WHEN THEY ARRIVED. EMS PLACED PT ON 10 L/ NRB AND O2 SATS UP TO 97% ACCUCHECK 153 BY EMS. C/O CONTINUED NON-PRODUCTIVE COUGH C/O PROGRESSIVE WEAKNESS C/O NAUSEA AND VOMITED THIS EVENING HAS NOT BEEN EATING OR DRINKING VERY MUCH AT ALL FOR THE LAST 2 WEEKS, AND HAS HAD EVEN LESS INTAKE THE LAST COUPLE OF DAYS HAS HAD DECREASED URINE OUTPUT, AND LAST VOID WAS AT 1500 TODAY NO CHANGE IN CHRONIC LEG SWELLING AND NO PAIN IN CALVES C/O HEADACHE--HAS CHRONIC HEADACHES C/O BODY ACHES--HAS CHRONIC GENERALIZED PAIN SEE OLD CHARTS FOR DETAILS OF RECENT VISITS ADDITIONALLY, PT HAS HISTORY OF PAROXYSMAL ATRIAL FIBRILLATION, AND HAS REPEATEDLY REFUSED TO TAKE ORAL ANTICOAGULANTS. ALSO HAS HISTORY OF CARDIAC ARREST DURING ENT SURGERY PT ALSO HAS HISTORY OF V-FIB AND BRADYCARDIA AND HAS A PACEMAKER/DEFIBRILLATOR IN PLACE SHE HAS HAD POST OP RESPIRATORY FAILURE IN THE PAST PCP: DR. REVELES Allergies and Home Medications Allergies Coded Allergies: Penicillins (Unverified Allergy, Severe, Pt has received Cefepime & Ceftriaxone in the past w/o issue, 09/22/19) SWELLING, RASH, ITCHING Sulfa (Sulfonamide Antibiotics) (Verified Allergy, Mild, 09/22/19) RASH aspirin (Verified Adverse Reaction, Mild, ASPIRIN SENSITIVE, 09/22/19) UPSET STOMACH sumatriptan (Verified Adverse Reaction, Mild, PALPITATIONS, 09/22/19) IRRITABLE Home Medications Albuterol Sulfate 0.63 Mg/3 Ml Vial.neb, 0.63 MG IH Q6H PRN for WHEEZING, (Reported) Aspirin 81 Mg Tab.chew, 81 MG PO DAILY, (Reported) Azithromycin 500 Mg Tablet, 500 MG PO DAILY Prescribed by: PETER ASHLEY on 12/10/191935 Benzonatate 100 Mg Capsule, 100-200 MG PO TID Prescribed by: PETER ASHLEY on 12/10/191935 Benzonatate 100 Mg Capsule, 100 MG PO Q6H PRN for COUGH Prescribed by: ISRAEL ODELL on 01/17/201541 Cefdinir 300 Mg Capsule, 300 MG PO BID Prescribed by: PETER ASHLEY on 12/10/191935 Cholecalciferol (Vitamin D3) 125 Mcg Tablet, 250 MCG PO 1800, (Reported) Dexamethasone 6 Mg Tablet, 6 MG PO DAILY Prescribed by: PETER ASHLEY on 12/10/191935 Dexamethasone 6 Mg Tablet, 6 MG PO DAILY Prescribed by: ISRAEL ODELL on 01/17/20 154 Diltiazem HCl 240 Mg Cap.er.24h, 240 MG PO DAILY, (Reported) Guaifenesin/Dextromethorphan 1 Each Tbmp.12hr, 1 EACH PO BID Prescribed by: PETER ASHLEY on 12/10/191935 Hydroxyzine HCl 25 Mg Tablet, 25 MG PO for ANXIETY, (Reported) Insulin NPH Human Isophane 100 Unit/1 Ml Vial, 25 UNIT SQ BID Prescribed by: NANNETTE REVELES on 06/29/19 1247 Levofloxacin 500 Mg Tablet, 500 MG PO DAILY Prescribed by: JEYSON AUGUSTE on 12/24/192110 Lorazepam 0.5 Mg Tablet, 0.5 MG PO QID Prescribed by: NANNETTE REVELES on 06/29/19 1247 Magnesium Oxide 400 Mg Tablet, 800 MG PO DAILY, (Reported) TAKES 2 (400MG) TABS Melatonin 3 Mg Tablet, 6 MG PO HS PRN for SLEEP, (Reported) TAKES 2 (3MG) TABS Metoprolol Tartrate 50 Mg Tablet, 100 MG PO BID replaces 25mg dose Prescribed by: NANNETTE REVELES on 06/29/19 1247 Montelukast Sodium 10 Mg Tablet, 10 MG PO HS Prescribed by: NANNETTE REVELES on 06/29/19 1247 Omeprazole 40 Mg Capsule.dr, 40 MG PO BID, (Reported) Ondansetron 4 Mg Tab.rapdis, 4 MG PO Q6H PRN for NAUSEA/VOMITING Prescribed by: ISRAEL ODELL on 01/17/20 1542 Pramipexole Di-HCl 1 Mg Tablet, 1 MG PO HS, (Reported) LAST FILLED 02-16-2019 #90/90 DAY SUPPLT Patient Home Medication List Home Medication List Reviewed: Yes Review of Systems Review of Systems Constitutional: see HPI, chills, fever, malaise, weakness EENTM: no symptoms reported Respiratory: see HPI, cough, dyspnea on exertion, orthopnea, short of breath, wheezing Cardiovascular: chest pain, edema; No palpitations, No syncope Gastrointestinal: No abdominal pain; diarrhea (ONGOING / CHRONIC DIARRHEA), loss of appetite, nausea, vomiting Genitourinary: see HPI, decreased output Musculoskeletal: other (BODY ACHES, HAS CHRONIC GENERALIZED PAIN ) Skin: no symptoms reported Psychiatric/Neurological: Headache (HAS CHRONIC HEADACHES) Past Qynngsr-Jefsti-Cuzxdi Hx Past Med/Social Hx: Reviewed and Corrections made Patient Social History Alcohol Use: Denies Use Recreational Drug Use: No 2nd Hand Smoke Exposure: Yes Recent Foreign Travel: No Contact w/Someone Who Travel: No Recent Infectious Disease Expo: Yes Recent Hopitalizations: No Immunizations Up To Date Tetanus Booster (TDap): Unknown PED Vaccines UTD: No Date of Pneumonia Vaccine: Apr 04, 2018 Date of Influenza Vaccine: Dec 31, 2018 Seasonal Allergies Seasonal Allergies: Yes Past Medical History Surgeries: Yes (LAP CORNELIUS; C-SPINE FUSION/DISCECTOMY C5-C6 ) Abdominal, Appendectomy, Cardiac, Defibrillator, Eye Surgery, Gallbladder, Hysterectomy, Oophorectomy, Orthopedic, Pacemaker, Tonsillectomy Respiratory: Yes (O2 AT 2L/NC CONTINUOUSLY) Asthma, Pneumonia, Chronic Bronchitis, Sleep Apnea, COPD Currently Using CPAP: No Currently Using BIPAP: No Cardiac: Yes (PACEMAKER/DEFIBRILLATOR;CARDIAC ARREST DURING ENT SURGERY;PSVT/PALPITATIONS) Atrial Fibrillation, Chronic Edema/Swelling, Coronary Artery Disease, High Cholesterol, Hypertension, Irregular Heartbeat Neurological: Yes (PERIPHERAL NEUROPATHY HANDS/FEET; CHRONIC HEADACHES) Headaches /Migraines, Neuropathy, TIA 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 Disorders: No Female 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 Disorders: Denies 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 PAIN) Degenerate Disk Disease, Arthritis, Fibromyalgia, Chronic Back Pain, Fractures Endocrine: Yes Diabetes, Insulin dep, Diabetes, Non-Insulin dep HEENT: Yes (S/P BILATERAL CATARACT SURGERY + YAG PROCEDURE;ENT SURG WITH CARDIAC ARREST) Cataract Loss of Vision: Denies Hearing Impairment: Denies Cancer: No Psychosocial: Yes Anxiety, Depression Integumentary: Yes (NELIA INTERTRIGO) Pruritis Blood Disorders: No Adverse Reaction/Blood Tranf: No Family Medical History Alzheimer's disease 19 FATHER Cardiovascular disease 19 FATHER 19 MOTHER Completed stroke 19 MOTHER Hypertension 19 FATHER 19 MOTHER Myocardial infarction 19 FATHER 19 MOTHER No Family History of: Diabetes mellitus PSH: -T12 KYPHOPLASTY -C5-C6 CERVICAL DISCECTOMY WITH FUSION 04/2018 -LAP CORNELIUS FUNDOPLICATION -EGD'S/ESOPHAGEAL DILATIONS/COLONOSCOPIES/POLYPECTOMIES -PACEMAKER/DEFIBRILLATOR -HYSTERECTOMY/BSO -CHOLECYSTECTOMY -APPENDECTOMY -TONSILLECTOMY -OVARIAN CYST SURGERIES X 4 -CYST FROM BACK REMOVED -ENT SURGERY -BILATERAL CARPAL TUNNEL REPAIR -BILATERAL CATARACT SURGERY + YAG PROCEDURE PMH: -CHRONIC NECK PAIN WITH CERVICAL RADICULOPATHY -RESTLESS LEG SYNDROME -CHRONIC BACK PAIN -T12 COMPRESSION WITH KYPHOPLASTY -HAS HAD POST OP RESPIRATORY FAILURE IN PAST -HAD CARDIAC ARREST WITH ENT SURGERY -CAROTID DISEASE--40-50% STENOSIS BILAT ICA -PAROXYSMAL A FIB--HAS REFUSED ORAL ANTICOAGULANTS -HX OF V-FIB AND BRADYCARDIA--S/P PACEMAKER/DEFIBRILLATOR -08/23/19--CARDIAC CATH--NO SIGNIFICANT CORONARY ARTERY DISEASE, EF 50% Physical Exam Vital Signs - First Documented 01/28/20 01/28/20 20:57 21:00 Temp 36.4 Pulse 90 Resp 27 B/P (MAP) 134/87 (103) Pulse Ox 98 O2 Delivery OxyMask O2 Flow Rate 12.00 Capillary Refill : Less Than 3 Seconds Height: 5'4.00" Weight: 215lbs. 0oz. 97.314115fg; 41.00 BMI Method:Stated General Appearance: moderate distress, obese, other (PT IS VERY LETHARGIC, MODERATELY DYSPNEIC, VERY PALE. ) Neck: normal inspection Respiratory: respiratory distress, decreased breath sounds (DIMINISHED BREATH SOUNDS IN BILATERAL BASES. ), accessory muscle use; No rales, No rhonchi, No wheezing Cardiovascular: no JVD, no murmur, tachycardia Gastrointestinal: non tender, soft Extremities: no pedal edema, normal capillary refill Neurologic/Psychiatric: no motor/sensory deficits, alert, oriented x 3 Skin: warm/dry, pallor, other (DECREASED TURGOR;' EXTENSIVE CANDIDAL INTERTRIGO--UNDER BREASTS AND IN GROIN AND LOWER ABDOMINAL FOLDS) Focused Exam Lactate Level 01/28/20 21:05: Lactic Acid Level 1.42 Lactic Acid Level Laboratory Tests Test 01/28/20 21:05 Lactic Acid Level 1.42 MMOL/L (0.50-2.00) Procedures/Interventions Date of ETT Placement: Apr 21, 2018 Time of ETT Placement: 1743 Progress/Results/Core Measures Suspected Sepsis Recent Fever Within 48 Hours: Yes Infection Criteria Present: Documented Infection New/Unexplained Altered Menta: No Sepsis Screen: Possible Sepsis Risk SIRS Temperature: Pulse: 90 Respiratory Rate: 27 Laboratory Tests 01/28/20 21:05: White Blood Count 9.9 Blood Pressure 134 /87 Mean: 103 01/28/20 21:05: Lactic Acid Level 1.42 Laboratory Tests 01/28/20 21:05: Creatinine 0.79, Platelet Count 259, Total Bilirubin 0.4 01/29/20 00:09: INR Comment 1.0 Results/Orders Lab Results Laboratory Tests Test 01/28/20 21:05 01/28/20 21:22 01/28/20 21:32 01/29/20 00:09 Range/Units White Blood Count 9.9 4.3-11.0 10^3/uL Red Blood Count 4.89 3.80-5.11 10^6/uL Hemoglobin 13.9 11.5-16.0 g/dL Hematocrit 43 35-52 % Mean Corpuscular Volume 89 80-99 fL Mean Corpuscular Hemoglobin 28 25-34 pg Mean Corpuscular Hemoglobin Concent 32 32-36 g/dL Red Cell Distribution Width 13.7 10.0-14.5 % Platelet Count 259 130-400 10^3/uL Mean Platelet Volume 9.6 9.0-12.2 fL Immature Granulocyte % (Auto) 1 % Neutrophils (%) (Auto) 78 H 42-75 % Lymphocytes (%) (Auto) 13 12-44 % Monocytes (%) (Auto) 7 0-12 % Eosinophils (%) (Auto) 1 0-10 % Basophils (%) (Auto) 0 0-10 % Neutrophils # (Auto) 7.8 1.8-7.8 10^3/uL Lymphocytes # (Auto) 1.3 1.0-4.0 10^3/uL Monocytes # (Auto) 0.7 0.0-1.0 10^3/uL Eosinophils # (Auto) 0.1 0.0-0.3 10^3/uL Basophils # (Auto) 0.0 0.0-0.1 10^3/uL Immature Granulocyte # (Auto) 0.1 0.0-0.1 10^3/uL Neutrophils % (Manual) 80 % Lymphocytes % (Manual) 16 % Monocytes % (Manual) 4 % Blood Morphology Comment NORMAL Erythrocyte Sedimentation Rate 27 0-30 MM/HR Sodium Level 139 135-145 MMOL/L Potassium Level 3.6 3.6-5.0 MMOL/L Chloride Level 103 98-107 MMOL/L Carbon Dioxide Level 17 L 21-32 MMOL/L Anion Gap 19 H 5-14 MMOL/L Blood Urea Nitrogen 10 7-18 MG/DL Creatinine 0.79 0.60-1.30 MG/DL Estimat Glomerular Filtration Rate > 60 BUN/Creatinine Ratio 13 Glucose Level 171 H 70-105 MG/DL Lactic Acid Level 1.42 0.50-2.00 MMOL/L Calcium Level 8.4 L 8.5-10.1 MG/DL Corrected Calcium 8.9 8.5-10.1 MG/DL Magnesium Level 1.8 1.6-2.4 MG/DL Total Bilirubin 0.4 0.1-1.0 MG/DL Aspartate Amino Transf (AST/SGOT) 24 5-34 U/L Alanine Aminotransferase (ALT/SGPT) 11 0-55 U/L Alkaline Phosphatase 96 40-136 U/L Lactate Dehydrogenase 313 H 125-220 U/L Total Creatine Kinase 92 29-168 U/L Creatine Kinase MB 2.6 <6.6 NG/ML Myoglobin 81.2 10.0-92.0 NG/ML Troponin I 0.649 *H <0.028 NG/ML C-Reactive Protein High Sensitivity 5.69 H 0.00-0.50 MG/DL B-Type Natriuretic Peptide 83.2 <100.0 PG/ML Total Protein 6.5 6.4-8.2 GM/DL Albumin 3.4 3.2-4.5 GM/DL Procalcitonin 0.06 <0.10 NG/ML Blood Gas Puncture Site RIGHT RADIAL Blood Gas Patient Temperature 36.2 Arterial Blood pH 7.44 H 7.37-7.43 Arterial Blood Partial Pressure CO2 30 L 35-45 MMHG Arterial Blood Partial Pressure O2 110 H 79-93 MMHG Arterial Blood HCO3 20 L 23-27 MMOL/L Arterial Blood Total CO2 21.4 21.0-31.0 MMOL/L Arterial Blood Oxygen Saturation 99 94-100 % Arterial Blood Base Excess -3.2 L -2.5-2.5 MMOL/L Manjit Test POSITIVE Blood Gas Ventilator Setting NO Blood Gas Inspired Oxygen RA Urine Color YELLOW Urine Clarity CLEAR Urine pH 6.0 5-9 Urine Specific [place] 1.015 L 1.016-1.022 Urine Protein TRACE H NEGATIVE Urine Glucose (UA) NEGATIVE NEGATIVE Urine Ketones 3+ H NEGATIVE Urine Nitrite NEGATIVE NEGATIVE Urine Bilirubin NEGATIVE NEGATIVE Urine Urobilinogen 0.2 < = 1.0 MG/DL Urine Leukocyte Esterase NEGATIVE NEGATIVE Urine RBC (Auto) NEGATIVE NEGATIVE Urine RBC 2-5 H /HPF Urine WBC 0-2 /HPF Urine Crystals NONE /LPF Urine Bacteria TRACE /HPF Urine Casts NONE /LPF Urine Mucus LARGE H /LPF Urine Yeast MODERATE H /HPF Urine Culture Indicated YES Urine Opiates Screen NEGATIVE NEGATIVE Urine Oxycodone Screen NEGATIVE NEGATIVE Urine Methadone Screen NEGATIVE NEGATIVE Urine Propoxyphene Screen NEGATIVE NEGATIVE Urine Barbiturates Screen NEGATIVE NEGATIVE Ur Tricyclic Antidepressants Screen NEGATIVE NEGATIVE Urine Phencyclidine Screen NEGATIVE NEGATIVE Urine Amphetamines Screen NEGATIVE NEGATIVE Urine Methamphetamines Screen NEGATIVE NEGATIVE Urine Benzodiazepines Screen POSITIVE H NEGATIVE Urine Cocaine Screen NEGATIVE NEGATIVE Urine Cannabinoids Screen NEGATIVE NEGATIVE Prothrombin Time 13.7 12.2-14.7 SEC INR Comment 1.0 0.8-1.4 Activated Partial Thromboplast Time 54 H 24-35 SEC D-Dimer 15.81 H 0.00-0.49 UG/ML Micro Results Microbiology 01/28/20 Influenza Types A,B Antigen (YOLIE) - Final, Complete My Orders Orders - PETER ASHLEY DO Ed Iv/Invasive Line Start (01/28/20 20:58) Ekg Tracing (01/28/20 20:58) Catheter(Urinary) Insert & Ass 03,15 (01/28/20 20:58) O2 (01/28/20 20:58) Monitor-Rhythm Ecg Trace Only (01/28/20 20:58) Chest 1 View, Ap/Pa Only (01/28/20 20:58) Arterial Blood Gas (01/28/20 20:58) BNP (01/28/20 20:58) Cbc With Automated Diff (01/28/20 20:58) Comprehensive Metabolic Panel (01/28/20 20:58) Creatine Kinase (01/28/20 20:58) Creatine Kinase Mb (01/28/20 20:58) Hs C Reactive Protein (01/28/20 20:58) Fibrin Degradation Products (01/28/20 20:58) Drug Screen Stat (Urine) (01/28/20 20:58) Lactic Acid Analyzer (01/28/20 20:58) Magnesium (01/28/20 20:58) Protime With Inr (01/28/20 20:58) Partial Thromboplastin Time (01/28/20 20:58) Ua Culture If Indicated (01/28/20 20:58) Blood Culture (01/28/20 20:58) Influenza A And B Antigens (01/28/20 20:58) Erythrocyte Sedimentation Rate (01/28/20 20:58) Myoglobin Serum (01/28/20 20:58) Troponin I (01/28/20 20:58) Procalcitonin (Pct) (01/28/20 20:58) LDH (01/28/20 20:58) Dexamethasone Injection (Decadron Injec (01/28/20 21:15) Albuterol/Ipratropium Inhaler (Combivent (01/29/20 09:00) Rt Request For Service (01/28/20 21:02) Fluticasone/Salmeterol 115/21 (Advair Hf (01/29/20 08:00) Fluticasone/Salmeterol 115/21 (Advair Hf (01/28/20 21:04) Albuterol/Ipratropium Inhaler (Combivent (01/28/20 21:04) Manual Differential (01/28/20 21:05) Enoxaparin Injection (Lovenox Injection) (01/28/20 22:45) Urine Culture (01/28/20 21:32) Ct Angio Chest W (01/28/20 22:46) Enoxaparin Injection (Lovenox Injection) (01/28/20 22:49) Ed Iv/Invasive Line Start (01/28/20 23:14) Ns Iv 1000 Ml (Sodium Chloride 0.9%) (01/28/20 23:14) Iohexol Injection (Omnipaque 350 Mg/Ml 1 (01/29/20 01:00) Received Contrast (Hold Metformin- Contr (01/29/20 01:00) Ns (Ivpb) (Sodium Chloride 0.9% Ivpb Bag (01/29/20 01:00) Medications Given in ED Current Medications Medications Dose Ordered Sig/Alannah Route Start Time Stop Time Status Last Admin Dose Admin Dexamethasone Sodium Phosphate 6 mg ONCE ONCE IV 01/28/20 21:15 01/28/20 21:16 DC 01/28/20 21:08 6 MG Enoxaparin Sodium 100 mg ONCE ONCE SC 01/28/20 22:45 01/28/20 22:54 DC 01/28/20 22:54 100 MG Iohexol 100 ml ONCE ONCE IV 01/29/20 01:00 01/29/20 01:01 DC 01/29/20 00:52 100 ML Sodium Chloride 80 ml ONCE ONCE IV 01/29/20 01:00 01/29/20 01:01 DC 01/29/20 00:52 80 ML Vital Signs/I&O 01/28/20 01/28/20 20:57 21:00 Temp 36.4 Pulse 90 Resp 27 B/P (MAP) 134/87 (103) Pulse Ox 98 97 O2 Delivery OxyMask OxyMask O2 Flow Rate 12.00 12.00 Capillary Refill : Less Than 3 Seconds Blood Pressure Mean: 103 Progress Note : Progress Note PLACED IN ISOLATION ROOM PPE WORN AT ALL TIMES PT MAINTAINED O2 SATS IN UPPER 90'S ON O2 AT 10-12 LITERS/NRB HEART RATE DOWN TO NORMAL RANGE DURING STAY BP STABLE NO DETERIORATION IN PT'S CONDITION DURING ER STAY BREATHING BECAME LESS LABORED DURING ER STAY GIVEN DECADRON, COMBIVENT AND ADVAIR INHALER TREATMENTS GIVEN LOVENOX GIVEN CEFEPIME AND VANCOMYCIN PT HELD IN ER/BOARDED IN ER UNTIL BED BECAME AVAILABLE. ECG Initial ECG Impression Date: Jan 28, 2020 Initial ECG Impression Time: 21:16 Initial ECG Rate: 112 Initial ECG Rhythm: S.Tach Initial ECG Comparisson: Unchanged (OLD INFERIOR AND ANTERIOR INFARCTS, UNCHANGED FROM PREVIOUS) Diagnostic Imaging Comments CXR--PATCHY, BILATERAL INFILTRATES, PENDING RADIOLOGIST REVIEW CT CHEST ANGIOGRAM--BILATERAL CENTRAL, SEGMENTAL AND SUBSEGMENTAL PULMONARY EMBOLI, MODERATE RIGHT HEART STRAIN, PATCHY GLASS OPACITIES IN BETH, LINGULA AND DEPENDENT LUNGS--MAY REPRESENT PULMONARY INFARCT, ATELECTASIS AND POSSIBLE INFECTION--PER [facility] VIA FAX AT [phone] Reviewed: Reviewed by Me Departure Communication (Admissions) 0014--SPOKE WITH DR. CORRALES, HOSPITALIST, ADVISES TO CONTACT DR. REVELES 0020--SPOKE WITH DR. REVELES, PT'S PCP. 0025--SPOKE WITH DR. VALLEJO, POULTRY CUTTER. WILL SEE PT IN CONSULT. DISCUSSED WHETHER PT SHOULD RECEIVE TPA VS HEPARIN VS LOVENOX. WILL CONSULT [facility]. 0030--CALLED NURIA, PAGING VISION SPECIALIST, DR. LAIRD 0104--NURIA CALLED BACK, DR. LAIRD ADVISES TO GIVE LOVENOX AND NOT TPA, WILL ALSO GET ECHOCARDIOGRAM IN AM Impression Primary Impression: Acute on chronic respiratory failure Additional Impressions: Bilateral pulmonary embolism COVID-19 virus infection COPD (chronic obstructive pulmonary disease) Elevated troponin IDDM (insulin dependent diabetes mellitus) HTN (hypertension) HX OF PAROXYSMAL ATRIAL FIBRILLATION Generalized weakness Pneumonia due to COVID-19 virus Disposition: ADMITTED INPATIENT Condition: Stable Admissions Decision to Admit Reason: Admit from ER (General) Decision to Admit/Date: Jan 29, 2020 Time/Decision to Admit Time: 00:15 Departure-Patient Inst. Referrals: NANNETTE REVELES DO (PCP/Family) Primary Care Physician PETER ASHLEY DO Jan 29, 2020 03:08
[2020-01-29] MEDS: 1/2 NS IV SOLUTION 1,000 ML IV SCH ×2 (04:15→14:56)
[2020-01-29] MEDS ORDERED: ONDANSETRON 4 MG/2 ML (SDV) Z0FRAN IV PRN (04:15)
--- NOTE | 2020-01-29 04:20 | NUR ---
PT admitted to room 512-1, with an admitting diagnosis of Bilat Pulmonary Emboli, COVID-19 ifection, Acute Resp Failure with Hypoxia, and elevated troponin, on 01/29/20 from [facility] via cart, accompanied by hospital staff. BRAYDON ARBOLEDA introduced to surroundings, call light, bed controls, phone, TV, temperature control, lights, meal times, smoking policy, visitor policy, side rail policy, bathrooms and showers. Patient Rights given to patient in the handbook. BRAYDON ARBOLEDA verbalizes understanding that [facility] is not responsible for the loss or damage to any personal effects or valuables that are kept in the patients posession during their hospitalization. BRAYDON ARBOLEDA verbalizes understanding of Interdisciplinary Patient Education. Patient and/or family were informed about the Rapid Response Team and its purpose.
[2020-01-29 05:06] LABS: BASOPHILS % (AUTO) 0 % (0-10); EOSINOPHILS % (AUTO) 0 % (0-10); HEMATOCRIT 42 % (35-52); HEMOGLOBIN 13.3 g/dL (11.5-16.0); LYMPHOCYTES # (AUTO) 0.7 10^3/uL (1.0-4.0); LYMPHOCYTES % (AUTO) 9 % (12-44); MEAN CORPUSCULAR HEMOGLOBIN 28 pg (25-34); MEAN CORPUSCULAR HGB CONC 32 g/dL (32-36); MEAN CORPUSCULAR VOLUME 90 fL (80-99); MEAN PLATELET VOLUME 9.9 fL (9.0-12.2); MONOCYTES # (AUTO) 0.3 10^3/uL (0.0-1.0); MONOCYTES % (AUTO) 3 % (0-12); NEUTROPHILS # (AUTO) 6.9 10^3/uL (1.8-7.8); NEUTROPHILS % (AUTO) 87 % (42-75); PLATELET COUNT 217 10^3/uL (130-400); WHITE BLOOD COUNT 7.9 10^3/uL (4.3-11.0)
[2020-01-29 05:15] LABS: ALBUMIN 3.2 GM/DL (3.2-4.5)
[2020-01-29 05:16] LABS: CHLORIDE 105 MMOL/L (98-107); POTASSIUM 3.8 MMOL/L (3.6-5.0); SODIUM 136 MMOL/L (135-145)
[2020-01-29 05:17] LABS: CALCIUM 7.9 MG/DL (8.5-10.1)
[2020-01-29 05:18] LABS: GLUCOSE 294 MG/DL (70-105); TOTAL PROTEIN 6.1 GM/DL (6.4-8.2)
[2020-01-29 05:19] LABS: CARBON DIOXIDE 14 MMOL/L (21-32)
[2020-01-29 05:20] LABS: BILIRUBIN,TOTAL 0.3 MG/DL (0.1-1.0)
[2020-01-29 05:21] LABS: ALKALINE PHOSPHATASE 90 U/L (40-136)
[2020-01-29 05:22] LABS: CREATININE SERUM 0.83 MG/DL (0.60-1.30); GFR ESTIMATED > 60
[2020-01-29 05:23] LABS: BUN/CREATININE RATIO 13
[2020-01-29 05:25] LABS: ALANINE AMINOTRANSFERASE 13 U/L (0-55)
--- NOTE | 2020-01-29 06:51 | Diagnostic Imaging Report ---
PROCEDURE: CT angiography of the chest with contrast. TECHNIQUE: Multiple contiguous axial images were obtained through the chest after uneventful bolus administration of intravenous contrast. 3D reconstructed CTA MIP acquisitions were also performed. Auto Exposure Controls were utilized during the CT exam to meet ALARA standards for radiation dose reduction. INDICATION: Dyspnea. COVID positive. COMPARISON: Chest radiograph 01/28/2020. FINDINGS: There are both occlusive and nonocclusive pulmonary artery filling defects throughout the bilateral central, segmental and subsegmental pulmonary emboli. There is some straightening of the interventricular septum consistent with right heart strain. Heart size upper limits normal. AICD. No pericardial effusion. Mediastinal lymphadenopathy measuring up to 1.1 cm in short axis dimension. No hilar or axillary lymphadenopathy is identified. Patchy groundglass opacities in both lungs. There is more dense dependent consolidation in the lung bases. No pleural effusion or pneumothorax. Cholecystectomy. No acute osseous findings. Chronic fracture of T12 has been treated with vertebroplasty. IMPRESSION: 1. Bilateral central, segmental and subsegmental pulmonary emboli. 2. Evidence of right heart strain. 3. Nonspecific bilateral groundglass opacities and dependent consolidation in the lungs likely due to combination of the reported COVID diagnosis and atelectasis. Agree with preliminary interpretation. Findings were reported by the preliminary interpreting radiologist at 2356 on 01/28/2020. Report was faxed to [facility]fection Control by petra at 6:49AM. Dictated by: Dictated on workstation # [id number]
[2020-01-29] MEDS: inSUlin ASPART (NovoLOG) 1 UNIT/0.01 ML (CHARGE PER UNIT) SC SCH ×5 (07:22→21:01)
--- NOTE | 2020-01-29 07:27 | Diagnostic Imaging Report ---
EXAM: CHEST 1 VIEW, AP/PA ONLY INDICATION: Dyspnea. COVID positive. COMPARISON: Chest radiograph 01/23/2020. FINDINGS: Cardiomegaly. AICD. Normal central pulmonary vascularity. Mild airspace opacities in the left lung base. No pleural effusion or pneumothorax. No acute osseous findings. IMPRESSION: 1. Cardiomegaly with normal central pulmonary vascularity. 2. Mild atelectasis or infiltrate in the left lung base. Report was faxed to [facility] Infection Control by petra at 7:26am. Dictated by: Dictated on workstation # [id number]
[2020-01-29] MEDS ORDERED: ADVAIR HFA 115/21 MCG INHALER 8 GM IH ONE (08:00)
[2020-01-29] MEDS: ASPIRIN E.C. 325 MG (ECOTRIN) TABLET PO SCH (08:16)
[2020-01-29] MEDS ORDERED: ENOXAPARIN 300 MG/3 ML (LOVENOX) MULTI-DOSE VIAL SQ SCH (09:00)
[2020-01-29] MEDS ORDERED: PANTOPRAZOLE 40 MG (PROTONIX) VIAL IV SCH (09:00)
[2020-01-29] MEDS ORDERED: ALBUTEROL/IPRATROP (COMBIVENT RESPIMAT) 4 GM INHALER IH ONE (09:00)
--- NOTE | 2020-01-29 09:00 | NUR ---
This RN spoke with [facility] Carrero who stated that pt could come out of isolation due to being diagnosed with covid Dec 09 and not running fevers.
[2020-01-29] MEDS: RT-ALBUTEROL INHALER HFA (VENTOLIN HFA) 18 GM IH SCH ×3 (10:27→18:36)
--- NOTE | 2020-01-29 11:10 | Consultation-Cardiology ---
HPI-Cardiology Cardiology Consultation Date of Consultation 01/29/20 Date of Admission Time Seen by Provider: 11:05 Indication: pulmonary embolism HPI 74-year-old lady with history of paroxysmal atrial fibrillation. Patient was diagnosed with COVID-19 pneumonia in December 2019. Had multiple hospital visits with multiple emergency room visits and multiple complaints, treated with multiple antibiotics. She continued to have fever on and off for the past 2 months. Her was recently released from the hospital after COVID 19 pneumonia hospitalization. She reported that she has been complaining of nausea and vomiting could not take her medication for the past one to 2 weeks on and off. Reported generalized fatigue, shortness of breath, loss of energy. Came into the emergency room and was diagnosed with bilateral pulmonary embolism with large embolus. Home Medications & Allergies Allergies: Coded Allergies: Penicillins (Unverified Allergy, Severe, Pt has received Cefepime & Ceftriaxone in the past w/o issue, 09/22/19) SWELLING, RASH, ITCHING Sulfa (Sulfonamide Antibiotics) (Verified Allergy, Mild, 09/22/19) RASH aspirin (Verified Adverse Reaction, Mild, ASPIRIN SENSITIVE, 09/22/19) UPSET STOMACH sumatriptan (Verified Adverse Reaction, Mild, PALPITATIONS, 09/22/19) IRRITABLE Home Medication List Reviewed: Yes [id number] Hx Patient Social History Marital Status: Employed/Student: retired Alcohol Use: Denies Use Recreational Drug Use: No 2nd Hand Smoke Exposure: Yes Recent Foreign Travel: No Recent Infectious Disease Expo: Yes Recent Hopitalizations: No Immunizations Up To Date Tetanus Booster (TDap): Unknown Date of Pneumonia Vaccine: Apr 04, 2018 Date of Influenza Vaccine: Jan 08, 2020 Past Medical History Discussed below Family Medical History Family History: Alzheimer's disease 19 FATHER Cardiovascular disease 19 FATHER 19 MOTHER Completed stroke 19 MOTHER Hypertension 19 FATHER 19 MOTHER Myocardial infarction 19 FATHER 19 MOTHER No Family History of: Diabetes mellitus Review of Systems-General Review of Systems Constitutional: see HPI, chills, fever, malaise, weakness EENTM: see HPI, no symptoms reported Respiratory: see HPI, cough, dyspnea on exertion, orthopnea, short of breath, wheezing Cardiovascular: see HPI, chest pain, edema; No palpitations, No syncope Gastrointestinal: see HPI; No abdominal pain; diarrhea (ONGOING / CHRONIC DIARRHEA), loss of appetite, nausea, vomiting Genitourinary: see HPI, decreased output Musculoskeletal: other (BODY ACHES, HAS CHRONIC GENERALIZED PAIN ) Skin: no symptoms reported, see HPI Psychiatric/Neurological: Headache (HAS CHRONIC HEADACHES) Reviewed Test Results Reviewed Test Results Lab Laboratory Tests Test 01/28/20 21:05 01/28/20 21:22 01/28/20 21:32 01/29/20 00:09 Range/Units White Blood Count 9.9 4.3-11.0 10^3/uL Red Blood Count 4.89 3.80-5.11 10^6/uL Hemoglobin 13.9 11.5-16.0 g/dL Hematocrit 43 35-52 % Mean Corpuscular Volume 89 80-99 fL Mean Corpuscular Hemoglobin 28 25-34 pg Mean Corpuscular Hemoglobin Concent 32 32-36 g/dL Red Cell Distribution Width 13.7 10.0-14.5 % Platelet Count 259 130-400 10^3/uL Mean Platelet Volume 9.6 9.0-12.2 fL Immature Granulocyte % (Auto) 1 % Neutrophils (%) (Auto) 78 H 42-75 % Lymphocytes (%) (Auto) 13 12-44 % Monocytes (%) (Auto) 7 0-12 % Eosinophils (%) (Auto) 1 0-10 % Basophils (%) (Auto) 0 0-10 % Neutrophils # (Auto) 7.8 1.8-7.8 10^3/uL Lymphocytes # (Auto) 1.3 1.0-4.0 10^3/uL Monocytes # (Auto) 0.7 0.0-1.0 10^3/uL Eosinophils # (Auto) 0.1 0.0-0.3 10^3/uL Basophils # (Auto) 0.0 0.0-0.1 10^3/uL Immature Granulocyte # (Auto) 0.1 0.0-0.1 10^3/uL Neutrophils % (Manual) 80 % Lymphocytes % (Manual) 16 % Monocytes % (Manual) 4 % Blood Morphology Comment NORMAL Erythrocyte Sedimentation Rate 27 0-30 MM/HR Sodium Level 139 135-145 MMOL/L Potassium Level 3.6 3.6-5.0 MMOL/L Chloride Level 103 98-107 MMOL/L Carbon Dioxide Level 17 L 21-32 MMOL/L Anion Gap 19 H 5-14 MMOL/L Blood Urea Nitrogen 10 7-18 MG/DL Creatinine 0.79 0.60-1.30 MG/DL Estimat Glomerular Filtration Rate > 60 BUN/Creatinine Ratio 13 Glucose Level 171 H 70-105 MG/DL Lactic Acid Level 1.42 0.50-2.00 MMOL/L Calcium Level 8.4 L 8.5-10.1 MG/DL Corrected Calcium 8.9 8.5-10.1 MG/DL Magnesium Level 1.8 1.6-2.4 MG/DL Total Bilirubin 0.4 0.1-1.0 MG/DL Aspartate Amino Transf (AST/SGOT) 24 5-34 U/L Alanine Aminotransferase (ALT/SGPT) 11 0-55 U/L Alkaline Phosphatase 96 40-136 U/L Lactate Dehydrogenase 313 H 125-220 U/L Total Creatine Kinase 92 29-168 U/L Creatine Kinase MB 2.6 <6.6 NG/ML Myoglobin 81.2 10.0-92.0 NG/ML Troponin I 0.649 *H <0.028 NG/ML C-Reactive Protein High Sensitivity 5.69 H 0.00-0.50 MG/DL B-Type Natriuretic Peptide 83.2 <100.0 PG/ML Total Protein 6.5 6.4-8.2 GM/DL Albumin 3.4 3.2-4.5 GM/DL Procalcitonin 0.06 <0.10 NG/ML Blood Gas Puncture Site RIGHT RADIAL Blood Gas Patient Temperature 36.2 Arterial Blood pH 7.44 H 7.37-7.43 Arterial Blood Partial Pressure CO2 30 L 35-45 MMHG Arterial Blood Partial Pressure O2 110 H 79-93 MMHG Arterial Blood HCO3 20 L 23-27 MMOL/L Arterial Blood Total CO2 21.4 21.0-31.0 MMOL/L Arterial Blood Oxygen Saturation 99 94-100 % Arterial Blood Base Excess -3.2 L -2.5-2.5 MMOL/L Manjit Test POSITIVE Blood Gas Ventilator Setting NO Blood Gas Inspired Oxygen RA Urine Color YELLOW Urine Clarity CLEAR Urine pH 6.0 5-9 Urine Specific [place] 1.015 L 1.016-1.022 Urine Protein TRACE H NEGATIVE Urine Glucose (UA) NEGATIVE NEGATIVE Urine Ketones 3+ H NEGATIVE Urine Nitrite NEGATIVE NEGATIVE Urine Bilirubin NEGATIVE NEGATIVE Urine Urobilinogen 0.2 < = 1.0 MG/DL Urine Leukocyte Esterase NEGATIVE NEGATIVE Urine RBC (Auto) NEGATIVE NEGATIVE Urine RBC 2-5 H /HPF Urine WBC 0-2 /HPF Urine Crystals NONE /LPF Urine Bacteria TRACE /HPF Urine Casts NONE /LPF Urine Mucus LARGE H /LPF Urine Yeast MODERATE H /HPF Urine Culture Indicated YES Urine Opiates Screen NEGATIVE NEGATIVE Urine Oxycodone Screen NEGATIVE NEGATIVE Urine Methadone Screen NEGATIVE NEGATIVE Urine Propoxyphene Screen NEGATIVE NEGATIVE Urine Barbiturates Screen NEGATIVE NEGATIVE Ur Tricyclic Antidepressants Screen NEGATIVE NEGATIVE Urine Phencyclidine Screen NEGATIVE NEGATIVE Urine Amphetamines Screen NEGATIVE NEGATIVE Urine Methamphetamines Screen NEGATIVE NEGATIVE Urine Benzodiazepines Screen POSITIVE H NEGATIVE Urine Cocaine Screen NEGATIVE NEGATIVE Urine Cannabinoids Screen NEGATIVE NEGATIVE Prothrombin Time 13.7 12.2-14.7 SEC INR Comment 1.0 0.8-1.4 Activated Partial Thromboplast Time 54 H 24-35 SEC D-Dimer 15.81 H 0.00-0.49 UG/ML Test 01/29/20 04:54 Range/Units White Blood Count 7.9 4.3-11.0 10^3/uL Red Blood Count 4.68 3.80-5.11 10^6/uL Hemoglobin 13.3 11.5-16.0 g/dL Hematocrit 42 35-52 % Mean Corpuscular Volume 90 80-99 fL Mean Corpuscular Hemoglobin 28 25-34 pg Mean Corpuscular Hemoglobin Concent 32 32-36 g/dL Red Cell Distribution Width 14.0 10.0-14.5 % Platelet Count 217 130-400 10^3/uL Mean Platelet Volume 9.9 9.0-12.2 fL Immature Granulocyte % (Auto) 1 % Neutrophils (%) (Auto) 87 H 42-75 % Lymphocytes (%) (Auto) 9 L 12-44 % Monocytes (%) (Auto) 3 0-12 % Eosinophils (%) (Auto) 0 0-10 % Basophils (%) (Auto) 0 0-10 % Neutrophils # (Auto) 6.9 1.8-7.8 10^3/uL Lymphocytes # (Auto) 0.7 L 1.0-4.0 10^3/uL Monocytes # (Auto) 0.3 0.0-1.0 10^3/uL Eosinophils # (Auto) 0.0 0.0-0.3 10^3/uL Basophils # (Auto) 0.0 0.0-0.1 10^3/uL Immature Granulocyte # (Auto) 0.1 0.0-0.1 10^3/uL Sodium Level 136 135-145 MMOL/L Potassium Level 3.8 3.6-5.0 MMOL/L Chloride Level 105 98-107 MMOL/L Carbon Dioxide Level 14 L 21-32 MMOL/L Anion Gap 17 H 5-14 MMOL/L Blood Urea Nitrogen 11 7-18 MG/DL Creatinine 0.83 0.60-1.30 MG/DL Estimat Glomerular Filtration Rate > 60 BUN/Creatinine Ratio 13 Glucose Level 294 H 70-105 MG/DL Calcium Level 7.9 L 8.5-10.1 MG/DL Corrected Calcium 8.5 8.5-10.1 MG/DL Total Bilirubin 0.3 0.1-1.0 MG/DL Aspartate Amino Transf (AST/SGOT) 20 5-34 U/L Alanine Aminotransferase (ALT/SGPT) 13 0-55 U/L Alkaline Phosphatase 90 40-136 U/L Troponin I 0.377 *H <0.028 NG/ML Total Protein 6.1 L 6.4-8.2 GM/DL Albumin 3.2 3.2-4.5 GM/DL Physical Exam Physical Exam Vital Signs Vital Signs - First Documented 01/28/20 01/28/20 01/29/20 20:57 21:00 05:07 Temp 36.4 Pulse 90 Resp 27 B/P (MAP) 134/87 (103) Pulse Ox 98 O2 Delivery OxyMask O2 Flow Rate 12.00 FiO2 100 Capillary Refill : Less Than 3 Seconds Height, Weight, BMI Height: 5'4.00" Weight: 215lbs. 0oz. [id number]; 33.56 BMI Method:Stated General Appearance: No Apparent Distress, WD/WN Eyes: Bilateral Eye Normal Inspection, Bilateral Eye PERRL, Bilateral Eye EOMI HEENT: PERRL/EOMI, TMs Normal, Normal ENT Inspection, Pharynx Normal, Moist Mucous Membranes Neck: Full Range of Motion, Normal Inspection, Non Tender, Supple, Carotid Bruit Respiratory: Chest Non Tender, Normal Breath Sounds, No Accessory Muscle Use, No Respiratory Distress Cardiovascular: Regular Rate, Rhythm, No Edema, No Gallop, No JVD, No Murmur, Normal Peripheral Pulses Gastrointestinal: Normal Bowel Sounds, No Organomegaly, No Pulsatile Mass, Non Tender, Soft Back: Normal Inspection, No CVA Tenderness, No Vertebral Tenderness Extremity: Normal Capillary Refill, Normal Inspection, Normal Range of Motion, Non Tender, No Calf Tenderness, No Pedal Edema Neurologic/Psychiatric: Alert, Oriented x3, No Motor/Sensory Deficits, 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 Skin: Normal Color, Warm/Dry Lymphatic: No Adenopathy A/P-Cardiology Admission Diagnosis Bilateral pulmonary embolism Chest pain Paroxysmal atrial fibrillation Back pain Assessment/Plan Chest pain, patient is reporting chest heaviness, probably secondary to pulmonary embolism. Continue to monitor Large bilateral pulmonary embolism, had CTA done in the emergency room. Patient was started on Lovenox. We can change her to Eliquis high-dose for one week then back to continuous oral anticoagulation. Patient has been refusing to take oral anticoagulation for atrial fibrillation in the past. Paroxysmal atrial fibrillation, borderline tachycardic at this time. Continue to monitor heart rate. Coronary artery disease, last cardiac catheter done in September [address] Cerda as no significant obstructive disease with normal left ventricular function. History in the past of perioperative bradycardia with asystole and tachycardia with ventricular fibrillation, had dual-chamber pacemaker/ICD implanted in September 2019. Followed by Dr. Cerda Back pain, history of spinal fusion surgery. 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 Diabetes mellitus, followed and managed by primary care physician History of chronic cough of unknown etiology, has been seen and following with Dr. Saleem History of chronic venous insufficiency with recurrent leg swelling, had a study done in 2015 which did not detect abnormality Moderate carotid stenosis on the left, mild stenosis on the right, last ultrasound was done in August [address] Cerda History of episode of hypotension secondary to medication. History of chronic pain with migraine Clinical Quality Measures DVT/VTE Risk/Contraindication: Risk Factor Score Per Nursin RFS Level Per Nursing on Admit: 4+=Very High NISHANT VALLEJO MD Jan 29, 2020 11:10
--- NOTE | 2020-01-29 11:22 | Diagnostic Imaging Report ---
Procedure: US Venous Lower Ext Sohail. Technique: Multiple real-time grayscale images were obtained over the lower extremities in various projections, bilaterally. Additional duplex Doppler and color Doppler images were also obtained. Date: January 29, 2020. Indication: 74-year-old female, history of pulmonary emboli. Covid 19 infection. Comparison: None. Findings: The left common femoral vein, left superficial femoral vein, and left popliteal vein demonstrate blood flow and response to augmentation. The visualized portions of the left greater saphenous vein and deep femoral vein are patent. The left posterior tibial and peroneal veins are patent. The right common femoral vein is patent. There is incomplete compressibility of the proximal and mid right superficial femoral veins. There is lack of demonstrated blood flow in these vessels consistent with occlusive thrombus. The right popliteal vein is patent. The right greater saphenous and deep femoral veins are patent in their visualized portions. The right posterior tibial and peroneal veins are patent. Impression: 1. Occlusive thrombus in the proximal and mid aspect of the right superficial femoral vein. 2. Negative for left lower extremity deep venous thrombosis. Dictated by: Dictated on workstation # [id number]
--- NOTE | 2020-01-29 11:45 | Progress Note ---
Subjective Date Seen by a Provider: Jan 29, 2020 Time Seen by a Provider: 11:40 Subjective/Events-last exam This is a 74 year old female with a history of paroxysmal atrial fibrillation as well as COVID-19 diagnosed in December. She has had several emergency room visits since her COVID diagnosis as well as at least 2 telemed visits with me. She had continued to report fever but has been afebrile in the ER and has been afebrile since admit. I had stress the importance of taking her eliquis during her telemedicine visits due to risk of blood clots but patient states she has been so week the past couple of weeks that she has been unable to take her medications and has basically been bed bound. She presented to the emergency room with complaint of shortness of air and was found to have extensive bilateral pulmonary emboli. She will be admitted to cardiac stepdown with cardiology consult. Focused Exam Lactate Level 01/28/20 21:05: Lactic Acid Level 1.42 Objective Exam Vital Signs Date Time Temp Pulse Resp B/P (MAP) Pulse Ox O2 Delivery O2 Flow Rate FiO2 01/29/20 10:29 93 2.00 01/29/20 09:00 93 Nasal Cannula 3.00 01/29/20 08:00 Nasal Cannula 3.00 01/29/20 08:00 36.0 84 19 103/87 (92) 95 Nasal Cannula 3.00 01/29/20 07:00 36.11494 92 18 120/86 94 3.00 01/29/20 06:45 86 01/29/20 06:30 36.64977 90 20 120/91 95 3.00 01/29/20 06:00 36.58783 87 20 118/84 95 3.00 01/29/20 05:40 99 OxyMask 8.00 01/29/20 05:30 36.92080 86 20 106/79 95 3.00 01/29/20 05:15 36.47947 89 20 107/78 95 3.00 01/29/20 05:07 Nasal Cannula 3.00 01/29/20 05:07 90 99 100 01/29/20 05:00 36.55569 89 20 109/81 95 3.00 01/29/20 04:49 36.4 92 20 127/84 98 OxyMask 8.00 01/29/20 04:45 36.38262 92 20 127/84 98 8.00 01/29/20 04:20 100 01/29/20 03:45 37.2 94 18 117/82 97 OxyMask 10.00 01/28/20 21:00 36.4 90 27 134/87 (103) 97 OxyMask 12.00 01/28/20 20:57 98 OxyMask 12.00 Capillary Refill : Less Than 3 Seconds General Appearance: Moderate Distress Neck: Supple Respiratory: Lungs Clear, Decreased Breath Sounds Cardiovascular: Regular Rate, Rhythm, Systolic Murmur Gastrointestinal: normal bowel sounds, non tender, soft Extremity: Non Tender, No Calf Tenderness, No Pedal Edema Neurologic/Psychiatric: Alert, Oriented x3 Results Lab Laboratory Tests 01/28/20 21:05: White Blood Count 9.9, Red Blood Count 4.89, Hemoglobin 13.9, Hematocrit 43, Mean Corpuscular Volume 89, Mean Corpuscular Hemoglobin 28, Mean Corpuscular Hemoglobin Concent 32, Red Cell Distribution Width 13.7, Platelet Count 259, Mean Platelet Volume 9.6, Immature Granulocyte % (Auto) 1, Neutrophils (%) (Auto) 78H, Lymphocytes (%) (Auto) 13, Monocytes (%) (Auto) 7, Eosinophils (%) (Auto) 1, Basophils (%) (Auto) 0, Neutrophils # (Auto) 7.8, Lymphocytes # (Auto) 1.3, Monocytes # (Auto) 0.7, Eosinophils # (Auto) 0.1, Basophils # (Auto) 0.0, Immature Granulocyte # (Auto) 0.1, Neutrophils % (Manual) 80, Lymphocytes % (Manual) 16, Monocytes % (Manual) 4, Blood Morphology Comment NORMAL, Erythrocyte Sedimentation Rate 27, Sodium Level 139, Potassium Level 3.6, Chloride Level 103, Carbon Dioxide Level 17L, Anion Gap 19H, Blood Urea Nitrogen 10, Creatinine 0.79, Estimat Glomerular Filtration Rate > 60, BUN/Creatinine Ratio 13, Glucose Level 171H, Lactic Acid Level 1.42, Calcium Level 8.4L, Corrected Calcium 8.9, Magnesium Level 1.8, Total Bilirubin 0.4, Aspartate Amino Transf (AST/SGOT) 24, Alanine Aminotransferase (ALT/SGPT) 11, Alkaline Phosphatase 96, Lactate Dehydrogenase 313H, Total Creatine Kinase 92, Creatine Kinase MB 2.6, Myoglobin 81.2, Troponin I 0.649*H, C-Reactive Protein High Sensitivity 5.69H, B-Type Natriuretic Peptide 83.2, Total Protein 6.5, Albumin 3.4, Procalcitonin 0.06 01/28/20 21:22: Blood Gas Puncture Site RIGHT RADIAL, Blood Gas Patient Temperature 36.2, Arterial Blood pH 7.44H, Arterial Blood Partial Pressure CO2 30L, Arterial Blood Partial Pressure O2 110H, Arterial Blood HCO3 20L, Arterial Blood Total CO2 21.4, Arterial Blood Oxygen Saturation 99, Arterial Blood Base Excess -3.2L, Manjit Test POSITIVE, Blood Gas Ventilator Setting NO, Blood Gas Inspired Oxygen RA 01/28/20 21:32: Urine Color YELLOW, Urine Clarity CLEAR, Urine pH 6.0, Urine Specific [place] 1.015L, Urine Protein TRACEH, Urine Glucose (UA) NEGATIVE, Urine Ketones 3+H, Urine Nitrite NEGATIVE, Urine Bilirubin NEGATIVE, Urine Urobilinogen 0.2, Urine Leukocyte Esterase NEGATIVE, Urine RBC (Auto) NEGATIVE, Urine RBC 2-5H, Urine WBC 0-2, Urine Crystals NONE, Urine Bacteria TRACE, Urine Casts NONE, Urine Mucus LARGEH, Urine Yeast MODERATEH, Urine Culture Indicated YES, Urine Opiates Screen NEGATIVE, Urine Oxycodone Screen NEGATIVE, Urine Methadone Screen NEGATIVE, Urine Propoxyphene Screen NEGATIVE, Urine Barbiturates Screen NEGATIVE, Ur Tricyclic Antidepressants Screen NEGATIVE, Urine Phencyclidine Screen NEGATIVE, Urine Amphetamines Screen NEGATIVE, Urine Methamphetamines Screen NEGATIVE, Urine Benzodiazepines Screen POSITIVEH, Urine Cocaine Screen NEGATIVE, Urine Cannabinoids Screen NEGATIVE 01/29/20 00:09: Prothrombin Time 13.7, INR Comment 1.0, Activated Partial Thromboplast Time 54H, D-Dimer 15.81H 01/29/20 04:54: White Blood Count 7.9, Red Blood Count 4.68, Hemoglobin 13.3, Hematocrit 42, Mean Corpuscular Volume 90, Mean Corpuscular Hemoglobin 28, Mean Corpuscular Hemoglobin Concent 32, Red Cell Distribution Width 14.0, Platelet Count 217, Mean Platelet Volume 9.9, Immature Granulocyte % (Auto) 1, Neutrophils (%) (Auto) 87H, Lymphocytes (%) (Auto) 9L, Monocytes (%) (Auto) 3, Eosinophils (%) (Auto) 0, Basophils (%) (Auto) 0, Neutrophils # (Auto) 6.9, Lymphocytes # (Auto) 0.7L, Monocytes # (Auto) 0.3, Eosinophils # (Auto) 0.0, Basophils # (Auto) 0.0, Immature Granulocyte # (Auto) 0.1, Sodium Level 136, Potassium Level 3.8, Chloride Level 105, Carbon Dioxide Level 14L, Anion Gap 17H, Blood Urea Nitrogen 11, Creatinine 0.83, Estimat Glomerular Filtration Rate > 60, BUN/Creatinine Ratio 13, Glucose Level 294H, Calcium Level 7.9L, Corrected Calcium 8.5, Total Bilirubin 0.3, Aspartate Amino Transf (AST/SGOT) 20, Alanine Aminotransferase (ALT/SGPT) 13, Alkaline Phosphatase 90, Troponin I 0.377*H, Total Protein 6.1L, Albumin 3.2 01/29/20 11:05: Glucometer 265H Microbiology 01/28/20 Influenza Types A,B Antigen (YOLIE) - Final, Complete Assessment/Plan Assessment/Plan Assess & Plan/Chief Complaint 1. Acute Bilateral Pulmonary Emboli--admit to Cardiac with high dose lovenox, on oxygen via [place] 2. Right superficial femoral vein thrombosis--lovenox and then will transition to oral anticoagulation when able 3. History of PAF--cardiology consulted 4. Hypertension--stable 5. Post-COVID Pneumonia--on IV cefepime/vanc 6. COPD--on dexamethasone, oxygen and inhalers Clinical Quality Measures DVT/VTE Risk/Contraindication: Risk Factor Score Per Nursin RFS Level Per Nursing on Admit: 4+=Very High NANNETTE REVELES DO Jan 29, 2020 11:45
[2020-01-29] MEDS: CEFEPIME INJECTION 2,000 MG in WATER (STERILE) FOR INJECTION 20 ML IV SCH (11:47)
--- NOTE | 2020-01-29 11:56 | History & Physical ---
History of Present Illness History of Present Illness Reason for visit/HPI This is a 74 year old female with a history of paroxysmal atrial fibrillation as well as COVID-19 diagnosed in December. She has had several emergency room visits since her COVID diagnosis as well as at least 2 telemed visits with me. She had continued to report fever but has been afebrile in the ER and has been afebrile since admit. I had stress the importance of taking her eliquis during her telemedicine visits due to risk of blood clots but patient states she has been so week the past couple of weeks that she has been unable to take her medications and has basically been bed bound. She presented to the emergency room with complaint of shortness of air and was found to have extensive bilateral pulmonary emboli. She will be admitted to cardiac stepdown with card iology consult. Date of Admission Jan 29, 2020 at 01:05 Date Seen by a Provider: Jan 29, 2020 Time Seen by a Provider: 11:53 I consulted on this patient on 01/29/20 11:53 Attending Physician Nannette Reid DO Admitting Physician Nannette Reid DO Consult Allergies and Home Medications Allergies Coded Allergies: Penicillins (Unverified Allergy, Severe, Pt has received Cefepime & Ceftriaxone in the past w/o issue, 09/22/19) SWELLING, RASH, ITCHING Sulfa (Sulfonamide Antibiotics) (Verified Allergy, Mild, 09/22/19) RASH aspirin (Verified Adverse Reaction, Mild, ASPIRIN SENSITIVE, 09/22/19) UPSET STOMACH sumatriptan (Verified Adverse Reaction, Mild, PALPITATIONS, 09/22/19) IRRITABLE Home Medications Albuterol Sulfate 0.63 Mg/3 Ml Vial.neb, 0.63 MG IH Q6H PRN for WHEEZING, (Reported) Aspirin 81 Mg Tab.chew, 81 MG PO DAILY, (Reported) Azithromycin 500 Mg Tablet, 500 MG PO DAILY Prescribed by: PETER ASHLEY on 12/10/191935 Benzonatate 100 Mg Capsule, 100-200 MG PO TID Prescribed by: PETER ASHLEY on 12/10/191935 Benzonatate 100 Mg Capsule, 100 MG PO Q6H PRN for COUGH Prescribed by: ISRAEL ODELL on 01/17/20 1542 Cefdinir 300 Mg Capsule, 300 MG PO BID Prescribed by: PETER ASHLEY on 12/10/191935 Cholecalciferol (Vitamin D3) 125 Mcg Tablet, 250 MCG PO 1800, (Reported) Dexamethasone 6 Mg Tablet, 6 MG PO DAILY Prescribed by: PETER ASHLEY on 12/10/191935 Dexamethasone 6 Mg Tablet, 6 MG PO DAILY Prescribed by: ISRAEL ODELL on 01/17/201541 Diltiazem HCl 240 Mg Cap.er.24h, 240 MG PO DAILY, (Reported) Guaifenesin/Dextromethorphan 1 Each Tbmp.12hr, 1 EACH PO BID Prescribed by: PETER ASHLEY on 12/10/191935 Hydroxyzine HCl 25 Mg Tablet, 25 MG PO for ANXIETY, (Reported) Insulin NPH Human Isophane 100 Unit/1 Ml Vial, 25 UNIT SQ BID Prescribed by: NANNETTE REID on 06/29/191246 Levofloxacin 500 Mg Tablet, 500 MG PO DAILY Prescribed by: JEYSON AUGUSTE on 12/24/192110 Lorazepam 0.5 Mg Tablet, 0.5 MG PO QID Prescribed by: NANNETTE REID on 06/29/19 124 Magnesium Oxide 400 Mg Tablet, 800 MG PO DAILY, (Reported) TAKES 2 (400MG) TABS Melatonin 3 Mg Tablet, 6 MG PO HS PRN for SLEEP, (Reported) TAKES 2 (3MG) TABS Metoprolol Tartrate 50 Mg Tablet, 100 MG PO BID replaces 25mg dose Prescribed by: NANNETTE REID on 06/29/19 124 Montelukast Sodium 10 Mg Tablet, 10 MG PO HS Prescribed by: NANNETTE REID on 06/29/19 124 Omeprazole 40 Mg Capsule.dr, 40 MG PO BID, (Reported) Ondansetron 4 Mg Tab.rapdis, 4 MG PO Q6H PRN for NAUSEA/VOMITING Prescribed by: ISRAEL ODELL on 01/17/201541 Pramipexole Di-HCl 1 Mg Tablet, 1 MG PO HS, (Reported) LAST FILLED 02-16-2019 #90/90 DAY SUPPLT Patient Home Medication List Home Medication List Reviewed: Yes Past Ayapmon-Bwctga-Ymbvoc Hx Past Med/Social Hx: Reviewed Nursing Past Med/Soc Hx, Reviewed and Corrections made Patient Social History Marrital Status: Employed/Student: retired Alcohol Use: Denies Use Recreational Drug Use: No 2nd Hand Smoke Exposure: Yes Recent Foreign Travel: No Contact w/other who traveled: No Recent Hopitalizations: No Recent Infectious Disease Expo: Yes Immunizations Up To Date Tetanus Booster (TDap): Unknown Pediatric: No Date of Pneumonia Vaccine: Apr 04, 2018 Date of Influenza Vaccine: Jan 08, 2020 Seasonal Allergies Seasonal Allergies: Yes Past Medical History Surgeries: Abdominal, Appendectomy, Cardiac, Defibrillator, Eye Surgery, Gallbladder, Hysterectomy, Oophorectomy, Orthopedic, Pacemaker, Tonsillectomy Currently Using CPAP: No Currently Using BIPAP: No Cardiac: Atrial Fibrillation, Chronic Edema/Swelling, Coronary Artery Disease, High Cholesterol, Hypertension, Irregular Heartbeat Neurological: Headaches /Migraines, Neuropathy, TIA 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: No Sexually Transmitted Disease: No Female 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 Disorders: Denies Hysterectomy Genitourinary: Kidney Infection, Bladder Infection, Kidney Stones, UTI-Chronic Gastrointestinal: Gastroesophageal Reflux, Diverticulosis, Hemorrhoids, Polyps, C-Diff, Hiatal Hernia, Ulcer, Irritable Bowel Musculoskeletal: Degenerate Disk Disease, Arthritis, Fibromyalgia, Chronic Back Pain, Fractures Endocrine: Diabetes, Insulin dep, Diabetes, Non-Insulin dep HEENT: Cataract Loss of Vision: Denies Hearing Impairment: Denies Psychosocial: Anxiety, Depression Skin/Integumentary: Pruritis History of Blood Disorders: No Adverse Reaction to Blood Lynne: No Family History Alzheimer's disease 19 FATHER Cardiovascular disease 19 FATHER 19 MOTHER Completed stroke 19 MOTHER Hypertension 19 FATHER 19 MOTHER Myocardial infarction 19 FATHER 19 MOTHER No Family History of: Diabetes mellitus PSH: -T12 KYPHOPLASTY -C5-C6 CERVICAL DISCECTOMY WITH FUSION 04/2018 -LAP CORNELIUS FUNDOPLICATION -EGD'S/ESOPHAGEAL DILATIONS/COLONOSCOPIES/POLYPECTOMIES -PACEMAKER/DEFIBRILLATOR -HYSTERECTOMY/BSO -CHOLECYSTECTOMY -APPENDECTOMY -TONSILLECTOMY -OVARIAN CYST SURGERIES X 4 -CYST FROM BACK REMOVED -ENT SURGERY -BILATERAL CARPAL TUNNEL REPAIR -BILATERAL CATARACT SURGERY + YAG PROCEDURE PMH: -CHRONIC NECK PAIN WITH CERVICAL RADICULOPATHY -RESTLESS LEG SYNDROME -CHRONIC BACK PAIN -T12 COMPRESSION WITH KYPHOPLASTY -HAS HAD POST OP RESPIRATORY FAILURE IN PAST -HAD CARDIAC ARREST WITH ENT SURGERY -CAROTID DISEASE--40-50% STENOSIS BILAT ICA -PAROXYSMAL A FIB--HAS REFUSED ORAL ANTICOAGULANTS -HX OF V-FIB AND BRADYCARDIA--S/P PACEMAKER/DEFIBRILLATOR -08/23/19--CARDIAC CATH--NO SIGNIFICANT CORONARY ARTERY DISEASE, EF 50% Review of Systems Constitutional: fever, malaise, weakness EENTM: No see HPI, No no symptoms reported, No ear discharge, No hearing loss, No ear pain, No blurred vision, No double vision, No eye pain, No tearing, No vision loss, No dental problems, No hoarseness, No mouth pain, No mouth swelling, No epistaxis, No nose congestion, No nose pain, No throat pain, No throat swelling, No other Respiratory: short of breath Cardiovascular: No no symptoms reported, No see HPI, No chest pain, No edema, No Hx of Intervention, No palpitations, No syncope, No vascular heart diseas, No other Gastrointestinal: loss of appetite, nausea Genitourinary: No no symptoms reported, No see HPI, No decreased output, No discharge, No dysuria, No frequency, No hematuria, No hesitancy, No incontinence, No nocturia, No pain, No other Musculoskeletal: muscle weakness Skin: No no symptoms reported, No see HPI, No change in color, No change in hair/nails, No dryness, No hx of skin cancer, No lesions, No lumps, No pruritus, No rash, No other Psychiatric/Neurological: Anxiety, Weakness Physical Exam Vital Signs Vital Signs - First Documented 01/28/20 01/28/20 01/29/20 20:57 21:00 05:07 Temp 36.4 Pulse 90 Resp 27 B/P (MAP) 134/87 (103) Pulse Ox 98 O2 Delivery OxyMask O2 Flow Rate 12.00 FiO2 100 Capillary Refill : Less Than 3 Seconds Height, Weight, BMI Height: 5'4.00" Weight: 215lbs. 0oz. 97.252241gj; 33.56 BMI Method:Stated General Appearance: Mild Distress HEENT: Pharynx Normal Neck: Supple Respiratory: Lungs Clear, No Respiratory Distress, Decreased Breath Sounds Cardiovascular: Regular Rate, Rhythm, Systolic Murmur Gastrointestinal: Normal Bowel Sounds, Non Tender, Soft Back: No CVA Tenderness Extremity: Non Tender, No Calf Tenderness, No Pedal Edema Neurologic/Psychiatric: Alert, Oriented x3 Skin: Warm/Dry Comments Laboratory Tests 01/28/20 21:05: White Blood Count 9.9, Red Blood Count 4.89, Hemoglobin 13.9, Hematocrit 43, Mean Corpuscular Volume 89, Mean Corpuscular Hemoglobin 28, Mean Corpuscular Hemoglobin Concent 32, Red Cell Distribution Width 13.7, Platelet Count 259, Mean Platelet Volume 9.6, Immature Granulocyte % (Auto) 1, Neutrophils (%) (Auto) 78H, Lymphocytes (%) (Auto) 13, Monocytes (%) (Auto) 7, Eosinophils (%) (Auto) 1, Basophils (%) (Auto) 0, Neutrophils # (Auto) 7.8, Lymphocytes # (Auto) 1.3, Monocytes # (Auto) 0.7, Eosinophils # (Auto) 0.1, Basophils # (Auto) 0.0, Immature Granulocyte # (Auto) 0.1, Neutrophils % (Manual) 80, Lymphocytes % (Manual) 16, Monocytes % (Manual) 4, Blood Morphology Comment NORMAL, Erythrocyte Sedimentation Rate 27, Sodium Level 139, Potassium Level 3.6, Chloride Level 103, Carbon Dioxide Level 17L, Anion Gap 19H, Blood Urea Nitrogen 10, Creatinine 0.79, Estimat Glomerular Filtration Rate > 60, BUN/Creatinine Ratio 13, Glucose Level 171H, Lactic Acid Level 1.42, Calcium Level 8.4L, Corrected Calcium 8.9, Magnesium Level 1.8, Total Bilirubin 0.4, Aspartate Amino Transf (AST/SGOT) 24, Alanine Aminotransferase (ALT/SGPT) 11, Alkaline Phosphatase 96, Lactate Dehydrogenase 313H, Total Creatine Kinase 92, Creatine Kinase MB 2.6, Myoglobin 81.2, Troponin I 0.649*H, C-Reactive Protein High S ensitivity 5.69H, B-Type Natriuretic Peptide 83.2, Total Protein 6.5, Albumin 3.4, Procalcitonin 0.06 01/28/20 21:22: Blood Gas Puncture Site RIGHT RADIAL, Blood Gas Patient Temperature 36.2, Arterial Blood pH 7.44H, Arterial Blood Partial Pressure CO2 30L, Arterial Blood Partial Pressure O2 110H, Arterial Blood HCO3 20L, Arterial Blood Total CO2 21.4, Arterial Blood Oxygen Saturation 99, Arterial Blood Base Excess -3.2L, Manjit Test POSITIVE, Blood Gas Ventilator Setting NO, Blood Gas Inspired Oxygen RA 01/28/20 21:32: Urine Color YELLOW, Urine Clarity CLEAR, Urine pH 6.0, Urine Specific [place] 1.015L, Urine Protein TRACEH, Urine Glucose (UA) NEGATIVE, Urine Ketones 3+H, Urine Nitrite NEGATIVE, Urine Bilirubin NEGATIVE, Urine Urobilinogen 0.2, Urine Leukocyte Esterase NEGATIVE, Urine RBC (Auto) NEGATIVE, Urine RBC 2-5H, Urine WBC 0-2, Urine Crystals NONE, Urine Bacteria TRACE, Urine Casts NONE, Urine Mucus LARGEH, Urine Yeast MODERATEH, Urine Culture Indicated YES, Urine Opiates Screen NEGATIVE, Urine Oxycodone Screen NEGATIVE, Urine Methadone Screen NEGATIVE, Urine Propoxyphene Screen NEGATIVE, Urine Barbiturates Screen NEGATIVE, Ur Tricyclic Antidepressants Screen NEGATIVE, Urine Phencyclidine Screen NEGATIVE, Urine Amphetamines Screen NEGATIVE, Urine Methamphetamines Screen NEGATIVE, Urine Benzodiazepines Screen POSITIVEH, Urine Cocaine Screen NEGATIVE, Urine Cannabinoids Screen NEGATIVE 01/29/20 00:09: Prothrombin Time 13.7, INR Comment 1.0, Activated Partial Thromboplast Time 54H, D-Dimer 15.81H 01/29/20 04:54: White Blood Count 7.9, Red Blood Count 4.68, Hemoglobin 13.3, Hematocrit 42, Mean Corpuscular Volume 90, Mean Corpuscular Hemoglobin 28, Mean Corpuscular Hemoglobin Concent 32, Red Cell Distribution Width 14.0, Platelet Count 217, Mean Platelet Volume 9.9, Immature Granulocyte % (Auto) 1, Neutrophils (%) (Auto) 87H, Lymphocytes (%) (Auto) 9L, Monocytes (%) (Auto) 3, Eosinophils (%) (Auto) 0, Basophils (%) (Auto) 0, Neutrophils # (Auto) 6.9, Lymphocytes # (Auto) 0.7L, Monocytes # (Auto) 0.3, Eosinophils # (Auto) 0.0, Basophils # (Auto) 0.0, Immature Granulocyte # (Auto) 0.1, Sodium Level 136, Potassium Level 3.8, Chloride Level 105, Carbon Dioxide Level 14L, Anion Gap 17H, Blood Urea Nitrogen 11, Creatinine 0.83, Estimat Glomerular Filtration Rate > 60, BUN/Creatinine Ratio 13, Glucose Level 294H, Calcium Level 7.9L, Corrected Calcium 8.5, Total Bilirubin 0.3, Aspartate Amino Transf (AST/SGOT) 20, Alanine Aminotransferase (ALT/SGPT) 13, Alkaline Phosphatase 90, Troponin I 0.377*H, Total Protein 6.1L, Albumin 3.2, Prolactin [Pending] 01/29/20 11:05: Glucometer 265H Microbiology 01/28/20 Influenza Types A,B Antigen (YOLIE) - Final, Complete Assessment/Plan Assessment and Plan 1. Acute Bilateral Pulmonary Emboli--admit to Cardiac with high dose lovenox, on oxygen via NC 2. Right superficial femoral vein thrombosis--lovenox and then will transition to oral anticoagulation when able 3. History of PAF--cardiology consulted 4. Hypertension--stable 5. Post-COVID Pneumonia--on IV cefepime/vanc 6. COPD--on dexamethasone, oxygen and inhalers Admission Diagnosis Admission Status: Inpatient Order (span 2 midnights) Reason for Inpatient Admission: Will need extended treatment and observation for PEs Clinical Quality Measures DVT/VTE Risk/Contraindication: Risk Factor Score Per Nursin RFS Level Per Nursing on Admit: 4+=Very High NANNETTE REID DO Jan 29, 2020 11:56
[2020-01-29] MEDS ORDERED: MONT10TA97 PO (12:13)
[2020-01-29] MEDS ORDERED: CHOL100048 PO (12:13)
[2020-01-29] MEDS ORDERED: DULA0.75 SC (12:13)
[2020-01-29] MEDS ORDERED: INSN1U SQ (12:13)
[2020-01-29] MEDS ORDERED: APIX5TAB PO (12:13)
[2020-01-29] MEDS ORDERED: ASCO-262 PO (12:13)
[2020-01-29] MEDS ORDERED: MELA10TA2 PO (12:13)
[2020-01-29] MEDS ORDERED: METO50TA15 PO (12:13)
[2020-01-29] MEDS ORDERED: BACL10TA PO (12:13)
--- NOTE | 2020-01-29 12:15 | NUR ---
SPOKE WITH THE PT (CALLED HER ROOM PHONE) AND WENT THRU THE EXT MED HISTORY TO COMPLETE THE MED REC PT COULDNT REMEMBER THE NAMES OF ALL HER MEDICATIONS, I NAMED THEM OFF USING THE EXT MED HISTORY AND PT WAS ABLE TO TELL ME HOW/WHEN SHE TAKES EACH MEDICATION ELIQUIS 5MG LAST FILLED 10-07-2019 #180/90DS-I DOCUMENTED THE PAST DUE FILL ON THE MED REC TRULICITY- WAS LAST FILLED 09-29-2019 #6/86DS- PT CANT REMEMBER WHAT DAY OF THE WEEK SHE TAKES THE INJECTION- ACCORDING TO HER SHE STARTED ON SATURDAYS BUT THEN IT MOVED TO WEDNESDAYS AND SHE ISNT SURE WHICH DAY IT IS NOW. I ALSO DOCUMENTED THE PAST DUE FILL ON THE MED REC OTC MEDS: MELATONIN VIT C VIT D
[2020-01-29] MEDS: ACETAMINOPHEN 500 MG TAB (TYLENOL) PO PRN (14:57)
[2020-01-29] MEDS: VANCOMYCIN INJECTION 1,250 MG in NS (IVPB) 250 ML IV SCH (14:57)
[2020-01-29] MEDS ORDERED: ENOXAPARIN 100 MG/1 ML (LOVENOX) SYR SC SCH (21:00)
[2020-01-30] MEDS: CEFEPIME INJECTION 2,000 MG in WATER (STERILE) FOR INJECTION 20 ML IV SCH ×2 (00:31→11:51)
[2020-01-30] MEDS: VANCOMYCIN INJECTION 1,250 MG in NS (IVPB) 250 ML IV SCH ×2 (00:32→13:58)
[2020-01-30 00:33] VITALS: BP 114/74
[2020-01-30] MEDS: 1/2 NS IV SOLUTION 1,000 ML IV SCH ×3 (00:49→21:45)
[2020-01-30 04:00] VITALS: BP 97/58
[2020-01-30] MEDS: inSUlin ASPART (NovoLOG) 1 UNIT/0.01 ML (CHARGE PER UNIT) SC SCH ×4 (06:07→20:50)
[2020-01-30] MEDS: RT-ALBUTEROL INHALER HFA (VENTOLIN HFA) 18 GM IH SCH ×4 (07:44→19:36)
[2020-01-30] MEDS: ADVAIR HFA 115/21 MCG INHALER 8 GM IH SCH ×2 (07:48→19:36)
[2020-01-30 08:00] VITALS: BP 121/64
--- NOTE | 2020-01-30 08:16 | Progress Note ---
Subjective Subjective Date Seen by Provider: Jan 30, 2020 Time Seen by Provider: 08:00 BRAYDON IS A 74 Y/O FEMALE WHO IS A CLINIC PATIENT OF DR. REVELES. SHE WAS ADMITTED TO THE HOSPITAL DUE TO BILATERAL PULMONARY EMBOLI DUE TO MULTIPLE FACTORS INCLUDING: COVID PNEUMONIA, PT'S NONCOMPLIANCE WITH CHRONIC ELIQUIS. THIS MORNING THE PATIENT REPORTS THAT SHE DOES NOT FEEL WELL, COMPLAINING OF PERSISTENT SHORTNESS OF BREATH AND NAUSEA WHEN MOVING ABOUT IN BED. SHE HAS CHRONIC STRIDOR AND CHRONIC COUGH. SHE DENIES ABDOMINAL PAIN, COMPLAINS OF DRY MOUTH, MILD NAUSEA. Review of Systems General: No Chills; Fatigue, Malaise HEENT: No Dysphasia, No Sore Throat; Other (DRY MOUTH) Pulmonary: Dyspnea Cardiovascular: No: Chest Pain, Edema Gastrointestinal: Nausea; No: Vomiting, Abdominal Pain, Diarrhea Genitourinary: Other (SPARKS IN PLACE) Musculoskeletal: No: back pain Neurological: Weakness; No: Confusion All Other Systems Reviewed All Other Systems Reviewed: Yes Objective Exam Vital Signs Vital Signs - First Documented 01/28/20 01/28/20 01/29/20 20:57 21:00 05:07 Temp 36.4 Pulse 90 Resp 27 B/P (MAP) 134/87 (103) Pulse Ox 98 O2 Delivery OxyMask O2 Flow Rate 12.00 FiO2 100 Capillary Refill : Less Than 3 Seconds General Appearance: WD/WN, Mild Distress Eyes: Bilateral Eye Normal Inspection, Bilateral Eye PERRL, Bilateral Eye EOMI HEENT: PERRL/EOMI, Pharynx Normal Neck: Full Range of Motion, Non Tender, Supple Respiratory: Chest Non Tender, No Respiratory Distress, Decreased Breath Sounds, Stridor Cardiovascular: Regular Rate, Rhythm, Systolic Murmur Gastrointestinal: Normal Bowel Sounds, Non Tender, Soft Rectal: Deferred Back: No CVA Tenderness Extremity: Non Tender, No Calf Tenderness, No Pedal Edema Neurologic/Psychiatric: Alert, Oriented x3, Other (FLAT AFFECT) Skin: Normal Color, Warm/Dry Lymphatic: No Adenopathy Results Lab Laboratory Tests 01/29/20 11:05: Glucometer 265H 01/29/20 16:45: Glucometer 370H 01/29/20 20:42: Glucometer 365H 01/30/20 05:39: Glucometer 245H Microbiology 01/28/20 Blood Culture - Preliminary, Resulted No growth 01/28/20 Influenza Types A,B Antigen (YOLIE) - Final, Complete Radiology LOWER EXTREMITY DOPPLER - Impression: 1. Occlusive thrombus in the proximal and mid aspect of the right superficial femoral vein. 2. Negative for left lower extremity deep venous thrombosis. CTA OF CHEST IMPRESSION: 1. Bilateral central, segmental and subsegmental pulmonary emboli. 2. Evidence of right heart strain. 3. Nonspecific bilateral groundglass opacities and dependent consolidation in the lungs likely due to combination of the reported COVID diagnosis and atelectasis. Agree with preliminary interpretation. Findings were reported by the preliminary interpreting radiologist at 2356 on 01/28/2020. Assessment/Plan Assessment/Plan Admission Dx ACUTE BILATERAL PULMONARY EMBOLI SUPERFICIAL FEMORAL VEIN THROMBOSIS ON RIGHT PAROXYSMAL ATRIAL FIBRILLATION HYPERTENSION RECENT DX COVID PNEUMONIA COPD CHRONIC STRIDOR DIABETES MELLITUS RESTLESS LEG SYNDROME ESOPHAGEAL REFLUX Admission Status: Inpatient Order (span 2 midnights) Assessment and Plan ACUTE BILATERAL PULMONARY EMBOLI SUPERFICIAL FEMORAL VEIN THROMBOSIS ON RIGHT PAROXYSMAL ATRIAL FIBRILLATION HYPERTENSION RECENT DX COVID PNEUMONIA COPD CHRONIC STRIDOR DIABETES MELLITUS RESTLESS LEG SYNDROME ESOPHAGEAL REFLUX ACUTE BILATERAL PULMONARY EMBOLI - ON ADMISSION [facility] WAS CONTACTED AND THEY DETERMINED PT WAS NOT A CANDIDATE FOR TPA THERAPY - PT WAS STARTED ON HIGH DOSE LOVENOX ON ADMISSION - HIGH DOSE ELIQUIS 10MG BID X 1 WEEK THEN 5MG BID THEREAFTER. SUPERFICIAL FEMORAL VEIN THROMBOSIS ON RIGHT - ON ELIQUIS PAROXYSMAL ATRIAL FIBRILLATION - CARDIOLOGY HAS BEEN CONSULTED. - ON CARDIZEM AND METOPROLOL OUTPATIENT - BP LOW TODAY- WILL HOLD MEDICATION UNTIL BP IMPROVES. - PT HAS BEEN ON ELIQUIS OUTPATIENT BUT IS INTERMITTENTLY NON-COMPLIANT WI TH THERAPY DUE TO COST AND "NAUSEA". HYPERTENSION - BP RIGHT NOW LOW - WILL HOLD MEDICATION UNTIL PRESSURES IMPROVE. RECENT DX COVID PNEUMONIA - PT IS OUT OF ISOLATION DUE TO THE REMOTENESS OF HER COVID DX. COPD WITH CHRONIC STRIDOR - SUPPORTIVE CARE, BREATHING TREATMENTS, MONITOR SYMPTOMS. DIABETES MELLITUS - WILL KEEP ON SLIDING SCALE FOR NOW, IF FSBS REMAIN ELEVATED, WILL RE- INITIATE HOME REGIMEN. RESTLESS LEG SYNDROME - RESTART BACLOFEN AND PRAMIPEXOLE ESOPHAGEAL REFLUX - RESUME PPI THERAPY. Clinical Quality Measures DVT/VTE Risk/Contraindication: Risk Factor Score Per Nursin RFS Level Per Nursing on Admit: 4+=Very High ELINOR RIVERS MD Jan 30, 2020 08:16
[2020-01-30] MEDS: VITAMIN D3 25 MCG (1,000 UNITS) TABLET PO SCH (09:21)
[2020-01-30] MEDS: APIXABAN 5 MG (ELIQUIS) TABLET PO SCH ×2 (09:21→20:41)
[2020-01-30] MEDS: ASPIRIN E.C. 325 MG (ECOTRIN) TABLET PO SCH ×2 (09:21→10:49)
[2020-01-30] MEDS: ASCORBIC ACID (VIT C) 500 MG TABLET PO SCH (09:21)
[2020-01-30] MEDS: PANTOPRAZOLE 40 MG (PROTONIX) TAB PO SCH ×2 (09:22→20:40)
[2020-01-30] MEDS: BACLOFEN 10 MG (LIORESAL) TAB PO SCH ×2 (09:22→20:40)
--- NOTE | 2020-01-30 12:09 | Cardiology Progress Note ---
Subjective Date Seen by Provider: Jan 30, 2020 Time Seen by Provider: 12:07 Subjective/Events-last exam Patient is laying down in bed, still having significant dyspnea and generalized body ache Review of Systems General: No Chills, No Night Sweats; Fatigue, Malaise; No Appetite, No Other HEENT: No Head Aches, No Visual Changes, No Eye Pain, No Ear Pain, No Dysphasia, No Sinus Congestion, No Post Nasal Drip, No Sore Throat, No Other Pulmonary: Dyspnea; No Pleuritic Chest Pain, No Other Cardiovascular: No: Chest Pain, Palpitations, Orthopnea, Paroxysmal Noc. Dyspnea, Edema, Lt Headedness, Other Focused Exam Lactate Level 01/28/20 21:05: Lactic Acid Level 1.42 Objective-Cardiology Exam Last Set of Vital Signs Vital Signs 01/29/20 01/30/20 05:07 10:39 Pulse Ox 92 O2 Delivery Nasal Cannula O2 Flow Rate 3.00 FiO2 100 Capillary Refill : Less Than 3 Seconds I&O Intake and Output 01/30/20 00:00 Intake Total 625 ml Output Total 975 ml Balance -350 ml Intake Oral 625 ml Output Urine Total 975 ml Daily Weight Change Unsure Yes, 2-13 lbs General: Alert, Oriented X3, Cooperative HEENT: Atraumatic, PERRLA Neck: Supple, No JVD, No Thyromegaly Lungs: Normal Air Movement, Other (bilateral rhonchi) Heart: Normal S1, Normal S2, No Murmurs, Other (tachycardia) Abdomen: Normal Bowel Sounds, Soft, No Tenderness, No Hepatosplenomegaly, No Masses Extremities: No Clubbing, No Cyanosis, No Edema, Normal Pulses, No Tenderness/Swelling Skin: No Rashes, No Breakdown, No Significant Lesion Neuro: Normal Gait, Normal Speech, Strength at 5/5 X4 Ext, Normal Tone, Sensation Intact Psych/Mental Status: Mental Status NL, Mood NL A/P-Cardiology Admission Diagnosis Bilateral pulmonary embolism Chest pain Paroxysmal atrial fibrillation Back pain Assessment/Plan Chest pain, patient is reporting chest heaviness, probably secondary to pulmonary embolism. Continue to monitor Acute respiratory insufficiency, bilateral pulmonary embolism. Started on high- dose Eliquis, consider using Vapotherm at this time. Paroxysmal atrial fibrillation, borderline tachycardic at this time. Continue to monitor heart rate. Coronary artery disease, last cardiac catheter done in September [address] Cerda as no significant obstructive disease with normal left ventricular function. History in the past of perioperative bradycardia with asystole and tachycardia with ventricular fibrillation, had dual-chamber pacemaker/ICD implanted in September 2019. Followed by Dr. Cerda Back pain, history of spinal fusion surgery. 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 Diabetes mellitus, followed and managed by primary care physician History of chronic cough of unknown etiology, has been seen and following with Dr. Saleem History of chronic venous insufficiency with recurrent leg swelling, had a study done in 2015 which did not detect abnormality Moderate carotid stenosis on the left, mild stenosis on the right, last ultrasound was done in August [address] Cerda History of episode of hypotension secondary to medication. History of chronic pain with migraine Clinical Quality Measures DVT/VTE Risk/Contraindication: Risk Factor Score Per Nursin RFS Level Per Nursing on Admit: 4+=Very High NISHANT VALLEJO MD Jan 30, 2020 12:09
[2020-01-30] MEDS: PRAMIPEXOLE 0.5 MG TAB (MIRAPEX) PO SCH (15:08)
[2020-01-30 20:00] VITALS: BP 113/79
[2020-01-30] MEDS: MELATONIN 10 MG TABLET PO SCH (20:40)
[2020-01-30] MEDS: MONTELUKAST 10 MG (SINGULAIR) TAB PO SCH (20:41)
[2020-01-31] VITALS (7 sets, daily range): BP systolic 113–158; BP diastolic 67–88
[2020-01-31] MEDS: CEFEPIME INJECTION 2,000 MG in WATER (STERILE) FOR INJECTION 20 ML IV SCH ×2 (00:10→12:22)
[2020-01-31] MEDS: 1/2 NS IV SOLUTION 1,000 ML IV SCH ×2 (01:57→16:55)
[2020-01-31] MEDS: VANCOMYCIN INJECTION 1,250 MG in NS (IVPB) 250 ML IV SCH ×2 (01:57→13:29)
[2020-01-31] MEDS: inSUlin ASPART (NovoLOG) 1 UNIT/0.01 ML (CHARGE PER UNIT) SC SCH ×4 (06:23→23:02)
--- NOTE | 2020-01-31 07:09 | Cardiology Progress Note ---
Subjective Date Seen by Provider: Jan 31, 2020 Time Seen by Provider: 07:08 Subjective/Events-last exam Patient is laying down in bed on Vapotherm, feeling a little bit better today, breathing better but having significant headache Review of Systems General: No Chills, No Night Sweats, No Fatigue, No Malaise, No Appetite, No Other HEENT: No Head Aches, No Visual Changes, No Eye Pain, No Ear Pain, No Dysphasia, No Sinus Congestion, No Post Nasal Drip, No Sore Throat, No Other Pulmonary: No Dyspnea, No Cough, No Pleuritic Chest Pain, No Other Cardiovascular: No: Chest Pain, Palpitations, Orthopnea, Paroxysmal Noc. Dyspnea, Edema, Lt Headedness, Other Focused Exam Lactate Level 01/28/20 21:05: Lactic Acid Level 1.42 Objective-Cardiology Exam Last Set of Vital Signs Vital Signs 01/30/20 01/31/20 08:00 04:00 Temp 36.0 Pulse 64 Resp 18 B/P (MAP) 113/71 (85) Pulse Ox 97 O2 Delivery Vapotherm O2 Flow Rate 30.00 45.00 FiO2 40 Capillary Refill : Less Than 3 Seconds I&O Intake and Output 01/31/20 00:00 Intake Total 3395.0 ml Output Total 1575 ml Balance 1820.0 ml Intake Oral 600 ml IV Total 2795.0 ml Output Urine Total 1575 ml General: Alert, Oriented X3, Cooperative HEENT: Atraumatic, PERRLA Neck: Supple, No JVD, No Thyromegaly Lungs: Normal Air Movement, Other (bilateral rhonchi) Heart: Normal S1, Normal S2, No Murmurs, Other (tachycardia) Abdomen: Normal Bowel Sounds, Soft, No Tenderness, No Hepatosplenomegaly, No Masses Extremities: No Clubbing, No Cyanosis, No Edema, Normal Pulses, No Tenderness/Swelling Skin: No Rashes, No Breakdown, No Significant Lesion Neuro: Normal Gait, Normal Speech, Strength at 5/5 X4 Ext, Normal Tone, Sensation Intact Psych/Mental Status: Mental Status NL, Mood NL A/P-Cardiology Admission Diagnosis Bilateral pulmonary embolism Chest pain Paroxysmal atrial fibrillation Back pain Assessment/Plan Chest pain, patient is reporting chest heaviness, probably secondary to pulmonary embolism. Slight improvement today. Continue to monitor Acute respiratory insufficiency, bilateral pulmonary embolism. Started on high- dose Eliquis, maintained on Vapotherm. Managed by primary care team Migraine headache, persistent headache, managed by primary care team Paroxysmal atrial fibrillation, borderline tachycardic at this time. Continue to monitor heart rate. Coronary artery disease, last cardiac catheter done in September [address] Cerda as no significant obstructive disease with normal left ventricular function. History in the past of perioperative bradycardia with asystole and tachycardia with ventricular fibrillation, had dual-chamber pacemaker/ICD implanted in September 2019. Followed by Dr. Cerda Back pain, history of spinal fusion surgery. 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 Diabetes mellitus, followed and managed by primary care physician History of chronic cough of unknown etiology, has been seen and following with Dr. Saleem History of chronic venous insufficiency with recurrent leg swelling, had a study done in 2015 which did not detect abnormality Moderate carotid stenosis on the left, mild stenosis on the right, last ultrasound was done in August [address] Cerda History of episode of hypotension secondary to medication. History of chronic pain with migraine Clinical Quality Measures DVT/VTE Risk/Contraindication: Risk Factor Score Per Nursin RFS Level Per Nursing on Admit: 4+=Very High NISHANT VALLEJO MD Jan 31, 2020 07:09
[2020-01-31] MEDS: RT-ALBUTEROL INHALER HFA (VENTOLIN HFA) 18 GM IH SCH ×4 (07:40→19:05)
[2020-01-31] MEDS: ADVAIR HFA 115/21 MCG INHALER 8 GM IH SCH (07:40)
--- NOTE | 2020-01-31 08:50 | Progress Note ---
Subjective Subjective Date Seen by Provider: Jan 31, 2020 Time Seen by Provider: 08:20 BRAYDON IS A 74 Y/O FEMALE WHO IS A CLINIC PATIENT OF DR. REVELES. SHE WAS ADMITTED TO THE HOSPITAL DUE TO BILATERAL PULMONARY EMBOLI DUE TO MULTIPLE FACTORS INCLUDING: COVID PNEUMONIA, PT'S NONCOMPLIANCE WITH CHRONIC ELIQUIS. SHE HAS CHRONIC STRIDOR AND CHRONIC COUGH. THIS MORNING THE PATIENT REPORTS THAT SHE HAS A MIGRAINE AND HAS HAD ONE FOR FOUR DAYS. SHE WAS PLACED ON VAPOTHERM YESTERDAY ( I WAS NOT NOTIFIED OF THIS CHANGE). Review of Systems General: No Chills, No Night Sweats; Fatigue, Malaise HEENT: Head Aches; No Visual Changes, No Eye Pain, No Ear Pain, No Dysphasia; Sinus Congestion, Post Nasal Drip; No Sore Throat Pulmonary: Dyspnea, Cough; No Pleuritic Chest Pain Cardiovascular: No: Chest Pain, Palpitations, Orthopnea Gastrointestinal: Nausea; No: Vomiting, Abdominal Pain, Diarrhea Genitourinary: Other (SPARKS IN PLACE) Musculoskeletal: No: back pain Neurological: Weakness; No: Confusion All Other Systems Reviewed All Other Systems Reviewed: Yes Objective Exam Vital Signs Vital Signs - First Documented 01/28/20 01/28/20 01/29/20 20:57 21:00 05:07 Temp 36.4 Pulse 90 Resp 27 B/P (MAP) 134/87 (103) Pulse Ox 98 O2 Delivery OxyMask O2 Flow Rate 12.00 FiO2 100 Capillary Refill : Less Than 3 Seconds General Appearance: WD/WN, Mild Distress Eyes: Bilateral Eye Normal Inspection, Bilateral Eye PERRL, Bilateral Eye EOMI HEENT: PERRL/EOMI Neck: Full Range of Motion, Non Tender, Supple Respiratory: Chest Non Tender, No Respiratory Distress, Decreased Breath Sounds Cardiovascular: Regular Rate, Rhythm, Systolic Murmur Gastrointestinal: Normal Bowel Sounds, Non Tender, Soft Rectal: Deferred Extremity: Non Tender, No Calf Tenderness, Pedal Edema (TRACE) Neurologic/Psychiatric: Alert, Oriented x3, Other (FLAT AFFECT) Skin: Normal Color, Warm/Dry Lymphatic: No Adenopathy Results Lab Laboratory Tests 01/30/20 11:11: Glucometer 216H 01/30/20 15:02: Glucometer 246H 01/30/20 20:46: Glucometer 288H 01/31/20 06:19: Glucometer 276H Microbiology 01/28/20 Urine Culture - Final, Complete YEAST 01/28/20 Blood Culture - Preliminary, Resulted No growth 01/28/20 Influenza Types A,B Antigen (YOLIE) - Final, Complete Assessment/Plan Assessment/Plan Admission Dx ACUTE BILATERAL PULMONARY EMBOLI SUPERFICIAL FEMORAL VEIN THROMBOSIS ON RIGHT PAROXYSMAL ATRIAL FIBRILLATION HYPERTENSION RECENT DX COVID PNEUMONIA COPD CHRONIC STRIDOR DIABETES MELLITUS RESTLESS LEG SYNDROME ESOPHAGEAL REFLUX Assessment and Plan ACUTE BILATERAL PULMONARY EMBOLI SUPERFICIAL FEMORAL VEIN THROMBOSIS ON RIGHT PAROXYSMAL ATRIAL FIBRILLATION HYPERTENSION RECENT DX COVID PNEUMONIA COPD CHRONIC STRIDOR DIABETES MELLITUS RESTLESS LEG SYNDROME ESOPHAGEAL REFLUX CHRONIC MIGRAINE HEADACHE ACUTE BILATERAL PULMONARY EMBOLI - ON ADMISSION [facility] WAS CONTACTED AND THEY DETERMINED PT WAS NOT A CANDIDATE FOR TPA THERAPY - PT WAS STARTED ON HIGH DOSE LOVENOX ON ADMISSION - HIGH DOSE ELIQUIS 10MG BID X 1 WEEK THEN 5MG BID THEREAFTER. SUPERFICIAL FEMORAL VEIN THROMBOSIS ON RIGHT - ON ELIQUIS PAROXYSMAL ATRIAL FIBRILLATION - CARDIOLOGY HAS BEEN CONSULTED. - ON CARDIZEM AND METOPROLOL OUTPATIENT - BP LOW TODAY- WILL HOLD MEDICATION UNTIL BP IMPROVES. - PT HAS BEEN ON ELIQUIS OUTPATIENT BUT IS INTERMITTENTLY NON-COMPLIANT WITH THERAPY DUE TO COST AND "NAUSEA". HYPERTENSION - BP RIGHT NOW LOW - WILL HOLD MEDICATION UNTIL PRESSURES IMPROVE. RECENT DX COVID PNEUMONIA - PT IS OUT OF ISOLATION DUE TO THE REMOTENESS OF HER COVID DX. COPD WITH CHRONIC STRIDOR - SUPPORTIVE CARE, BREATHING TREATMENTS, MONITOR SYMPTOMS. DIABETES MELLITUS - WILL KEEP ON SLIDING SCALE FOR NOW, SINCE FSBS ARE ELEVATED, WILL DECREASE STEROID WELL RESTARTING A LOWER DOSE OF HER USUAL HOME REGIMEN SINCE SHE IS NOT EATING WELL. RESTLESS LEG SYNDROME - RESTARTED BACLOFEN AND PRAMIPEXOLE ESOPHAGEAL REFLUX - RESUMED PPI THERAPY. MIGRAINE - IV BENADRYL, IV FENTANYL, MONITOR PROGRESS. DISCUSSED WITH PT TODAY- SHE IS IN AGREEMENT TO GO TO A PRISON ON [address] SINCE SHE RELIES ON HER TO CARE FOR HER AT HOME AND WITH HIS RECENT ILLNESS HE SHOULD HAVE MORE TIME TO RECOVER BEFORE PROVIDING HER CARE. SHE WOULD LIKE TO GO TO [facility] ON DISCHARGE. Admission Dx ACUTE BILATERAL PULMONARY EMBOLI SUPERFICIAL FEMORAL VEIN THROMBOSIS ON RIGHT PAROXYSMAL ATRIAL FIBRILLATION HYPERTENSION RECENT DX COVID PNEUMONIA COPD CHRONIC STRIDOR DIABETES MELLITUS RESTLESS LEG SYNDROME ESOPHAGEAL REFLUX Clinical Quality Measures Admission Status Admission Dx ACUTE BILATERAL PULMONARY EMBOLI SUPERFICIAL FEMORAL VEIN THROMBOSIS ON RIGHT PAROXYSMAL ATRIAL FIBRILLATION HYPERTENSION RECENT DX COVID PNEUMONIA COPD CHRONIC STRIDOR DIABETES MELLITUS RESTLESS LEG SYNDROME ESOPHAGEAL REFLUX DVT/VTE Risk/Contraindication: Risk Factor Score Per Nursin RFS Level Per Nursing on Admit: 4+=Very High ELINOR RIVERS MD Jan 31, 2020 08:50
[2020-01-31] MEDS ORDERED: NON-FORMULARY MEDICATION 1 EA EA (Dulaglutide (Trulicity) 0.75 MG) SC SCH (09:00)
[2020-01-31] MEDS ORDERED: diphenhydrAMINE 25 MG TAB (BENADRYL) PO ONE (09:15)
[2020-01-31] MEDS ORDERED: fentaNYL INJECTION 100 MCG/2 ML AMP IVP ONE (09:15)
[2020-01-31 09:30] LABS: HEMOGLOBIN 10.9 g/dL (11.5-16.0); MEAN PLATELET VOLUME 9.8 fL (9.0-12.2); WHITE BLOOD COUNT 8.5 10^3/uL (4.3-11.0)
[2020-01-31] MEDS: BACLOFEN 10 MG (LIORESAL) TAB PO SCH ×2 (09:35→23:01)
[2020-01-31] MEDS: ASPIRIN E.C. 325 MG (ECOTRIN) TABLET PO SCH (09:35)
[2020-01-31] MEDS: PANTOPRAZOLE 40 MG (PROTONIX) TAB PO SCH ×2 (09:35→23:01)
[2020-01-31] MEDS: VITAMIN D3 25 MCG (1,000 UNITS) TABLET PO SCH (09:35)
[2020-01-31] MEDS: ASCORBIC ACID (VIT C) 500 MG TABLET PO SCH (09:36)
[2020-01-31] MEDS: APIXABAN 5 MG (ELIQUIS) TABLET PO SCH ×2 (09:36→23:01)
[2020-01-31 09:45] LABS: CHLORIDE 106 MMOL/L (98-107); POTASSIUM 3.5 MMOL/L (3.6-5.0); SODIUM 137 MMOL/L (135-145)
[2020-01-31 09:46] LABS: CALCIUM 7.6 MG/DL (8.5-10.1)
[2020-01-31 09:47] LABS: GLUCOSE 328 MG/DL (70-105)
[2020-01-31 09:48] LABS: CARBON DIOXIDE 20 MMOL/L (21-32)
[2020-01-31 09:51] LABS: CREATININE SERUM 0.76 MG/DL (0.60-1.30); GFR ESTIMATED > 60
[2020-01-31 09:52] LABS: BUN/CREATININE RATIO 20
[2020-01-31 09:53] LABS: MAGNESIUM 1.9 MG/DL (1.6-2.4)
[2020-01-31] MEDS: inSUlin NPH (NovoLIN N) 1 UNIT/0.01 ML (CHARGE PER UNIT) SQ SCH ×2 (10:09→23:03)
[2020-01-31] MEDS ORDERED: diphenhydrAMINE 50 MG/ML INJ (BENADRYL) IVP ONE (12:00)
[2020-01-31] MEDS: POTASSIUM CL 10MEQ/50ML IVPB 50 ML IV SCH ×2 (12:25→13:29)
[2020-01-31] MEDS ORDERED: RT-epiNEPHrine (RACEMIC) 2.25% 0.5 ML VIAL INH ONE (17:00)
[2020-01-31] MEDS: PRAMIPEXOLE 0.5 MG TAB (MIRAPEX) PO SCH (17:57)
[2020-01-31] MEDS: MELATONIN 10 MG TABLET PO SCH (23:01)
[2020-01-31] MEDS: MONTELUKAST 10 MG (SINGULAIR) TAB PO SCH (23:01)
[2020-01-31] MEDS: ACETAMINOPHEN 500 MG TAB (TYLENOL) PO PRN (23:59)
[2020-02-01] VITALS (7 sets, daily range): BP systolic 139–146; BP diastolic 78–115
[2020-02-01] MEDS: CEFEPIME INJECTION 2,000 MG in WATER (STERILE) FOR INJECTION 20 ML IV SCH ×2 (00:29→12:58)
[2020-02-01] MEDS: VANCOMYCIN INJECTION 1,250 MG in NS (IVPB) 250 ML IV SCH (02:45)
[2020-02-01] MEDS: 1/2 NS IV SOLUTION 1,000 ML IV SCH ×3 (02:45→18:16)
[2020-02-01] MEDS: ADVAIR HFA 115/21 MCG INHALER 8 GM IH SCH ×3 (05:43→18:49)
[2020-02-01] MEDS: inSUlin ASPART (NovoLOG) 1 UNIT/0.01 ML (CHARGE PER UNIT) SC SCH ×4 (06:59→22:00)
[2020-02-01] MEDS: RT-ALBUTEROL INHALER HFA (VENTOLIN HFA) 18 GM IH SCH ×4 (07:14→18:47)
--- NOTE | 2020-02-01 09:39 | Cardiology Progress Note ---
Subjective Date Seen by Provider: Feb 01, 2020 Time Seen by Provider: 09:34 Subjective/Events-last exam Patient is laying down in bed, feeling better. Breathing slightly better, still complaining of significant headache Review of Systems General: No Chills, No Night Sweats; Fatigue; No Malaise, No Appetite, No Other HEENT: No Head Aches, No Visual Changes, No Eye Pain, No Ear Pain, No Dysphasia, No Sinus Congestion, No Post Nasal Drip, No Sore Throat, No Other Pulmonary: Dyspnea; No Cough, No Pleuritic Chest Pain, No Other Cardiovascular: No: Chest Pain, Palpitations, Orthopnea, Paroxysmal Noc. Dyspnea, Edema, Lt Headedness, Other Objective-Cardiology Exam Last Set of Vital Signs Vital Signs 02/01/20 02/01/20 02/01/20 02/01/20 02/01/20 04:00 06:40 07:14 07:16 08:23 Temp 36.4 Pulse 62 Resp 24 B/P (MAP) 143/82 (102) Pulse Ox 93 O2 Delivery Vapotherm O2 Flow Rate 30.00 FiO2 45 Capillary Refill : Less Than 3 Seconds I&O Intake and Output 02/01/20 00:00 Intake Total 2962.5 ml Output Total 2400 ml Balance 562.5 ml Intake Oral 1580 ml IV Total 1382.5 ml Output Urine Total 2400 ml General: Alert, Oriented X3, Cooperative HEENT: Atraumatic, PERRLA Neck: Supple, No JVD, No Thyromegaly Lungs: Normal Air Movement, Other (bilateral rhonchi) Heart: Normal S1, Normal S2, No Murmurs, Other (tachycardia) Abdomen: Normal Bowel Sounds, Soft, No Tenderness, No Hepatosplenomegaly, No Masses Extremities: No Clubbing, No Cyanosis, No Edema, Normal Pulses, No Tenderness/Swelling Skin: No Rashes, No Breakdown, No Significant Lesion Neuro: Normal Gait, Normal Speech, Strength at 5/5 X4 Ext, Normal Tone, Sensation Intact Psych/Mental Status: Mental Status NL, Mood NL Results Lab Laboratory Tests Test 01/31/20 12:03 01/31/20 15:47 01/31/20 22:31 02/01/20 06:59 Range/Units Glucometer 271 H 275 H 277 H 138 H 70-110 MG/DL A/P-Cardiology Admission Diagnosis Bilateral pulmonary embolism Chest pain Paroxysmal atrial fibrillation Back pain Assessment/Plan Chest pain, patient is reporting chest heaviness, probably secondary to pulmonary embolism. Reporting improvement. Continue to monitor Acute respiratory insufficiency, bilateral pulmonary embolism. Started on high- dose Eliquis, maintained on Vapotherm. We'll try to switch her to Vapotherm, consult Dr. Saleem Migraine headache, persistent headache, managed by primary care team Paroxysmal atrial fibrillation, borderline tachycardic at this time. Continue to monitor heart rate. Coronary artery disease, last cardiac catheter done in September [address] Cerda as no significant obstructive disease with normal left ventricular function. History in the past of perioperative bradycardia with asystole and tachycardia with ventricular fibrillation, had dual-chamber pacemaker/ICD implanted in September 2019. Followed by Dr. Cerda Back pain, history of spinal fusion surgery. 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 Diabetes mellitus, followed and managed by primary care physician History of chronic cough of unknown etiology, has been seen and following with Dr. Saleem History of chronic venous insufficiency with recurrent leg swelling, had a study done in 2015 which did not detect abnormality Moderate carotid stenosis on the left, mild stenosis on the right, last ultrasound was done in August [address] Cerda History of episode of hypotension secondary to medication. Clinical Quality Measures DVT/VTE Risk/Contraindication: Risk Factor Score Per Nursin RFS Level Per Nursing on Admit: 4+=Very High NISHANT VALLEJO MD Feb 01, 2020 09:39
[2020-02-01] MEDS: PANTOPRAZOLE 40 MG (PROTONIX) TAB PO SCH ×2 (09:54→22:02)
[2020-02-01] MEDS: inSUlin NPH (NovoLIN N) 1 UNIT/0.01 ML (CHARGE PER UNIT) SQ SCH ×2 (09:54→22:01)
[2020-02-01] MEDS: ASPIRIN E.C. 325 MG (ECOTRIN) TABLET PO SCH (09:54)
[2020-02-01] MEDS: APIXABAN 5 MG (ELIQUIS) TABLET PO SCH ×2 (09:54→22:02)
[2020-02-01] MEDS: VITAMIN D3 25 MCG (1,000 UNITS) TABLET PO SCH (09:54)
[2020-02-01] MEDS: BACLOFEN 10 MG (LIORESAL) TAB PO SCH ×2 (09:55→22:02)
[2020-02-01] MEDS: ASCORBIC ACID (VIT C) 500 MG TABLET PO SCH (09:55)
--- NOTE | 2020-02-01 11:50 | NUR ---
PT TRANSFERRED TO ROOM 410 VIA BED ACCOMPANIED BY THIS RN. PT PERSONAL BELONGINGS SENT WITH PT TO NEW ROOM. REPORT GIVEN TO CORINA FOR CONTINUING CARE. Addendum: 02/01/20 at 1204 by JEYSON SIERRA RN DISREGARD NOTE.
--- NOTE | 2020-02-01 12:40 | Progress Note ---
Subjective Date Seen by a Provider: Feb 01, 2020 Time Seen by a Provider: 12:34 Subjective/Events-last exam Fwup acute respiratory distress, bilateral PE, paroxysmal atrial fibrillation, COPD. C/O left sided chest pain and back pain. Very weak. Objective Exam Vital Signs Date Time Temp Pulse Resp B/P (MAP) Pulse Ox O2 Delivery O2 Flow Rate FiO2 02/01/20 11:11 Vapotherm 20.00 40.00 02/01/20 11:11 95 Vapotherm 30.00 02/01/20 08:23 36.4 02/01/20 08:00 71 18 140/78 (98) 94 Vapotherm 40.00 45.00 02/01/20 08:00 Vapotherm 40.00 40 02/01/20 07:16 93 30.00 45 02/01/20 07:14 95 Vapotherm 40.00 45 02/01/20 06:40 62 02/01/20 04:00 60 24 143/82 (102) 95 Vapotherm 40.00 45.00 02/01/20 02:49 66 18 139/79 (99) 96 Vapotherm 40.00 45.00 02/01/20 01:00 60 02/01/20 00:33 64 12 142/115 (124) 96 Vapotherm 40.00 45.00 01/31/20 21:00 Vapotherm 40.00 40 01/31/20 20:00 70 26 132/71 (91) 95 Vapotherm 40.00 45.00 01/31/20 19:25 87 01/31/20 19:24 36.4 88 20 158/79 (105) 91 Vapotherm 40.00 45.00 01/31/20 19:05 96 Vapotherm 40.00 45 01/31/20 17:03 94 Vapotherm 40.00 45 01/31/20 16:00 Vapotherm 35.00 40 01/31/20 15:48 36.4 69 20 124/88 (100) 95 Vapotherm 40.00 45.00 I & O 02/01/20 07:00 Intake Total 3462.5 ml Output Total 3275 ml Balance 187.5 ml Capillary Refill : Less Than 3 Seconds General Appearance: No Apparent Distress Respiratory: Decreased Breath Sounds, Rhonci Cardiovascular: Regular Rate, Rhythm, Systolic Murmur Extremity: Non Tender, No Calf Tenderness, No Pedal Edema Neurologic/Psychiatric: Alert, Oriented x3 Results Lab Laboratory Tests 01/31/20 15:47: Glucometer 275H 01/31/20 22:31: Glucometer 277H 02/01/20 06:59: Glucometer 138H 02/01/20 11:22: Glucometer 180H Microbiology 01/28/20 Urine Culture - Final, Complete YEAST 01/28/20 Blood Culture - Preliminary, Resulted No growth 01/28/20 Influenza Types A,B Antigen (YOLIE) - Final, Complete Assessment/Plan Assessment/Plan Assess & Plan/Chief Complaint 1. Acute Bilateral Pulmonary Emboli--switched to eliquis 2. Right superficial femoral vein thrombosis--on eliquis 3. History of PAF--cardiology consulted 4. Hypertension--stable 5. Post-COVID Pneumonia--on IV cefepime/vanc, repeat CXR 6. COPD--on dexamethasone, oxygen and inhalers Clinical Quality Measures Admission Status Admission Dx 1. Acute Bilateral Pulmonary Emboli--admit to Cardiac with high dose lovenox, on oxygen via NC 2. Right superficial femoral vein thrombosis--lovenox and then will transition to oral anticoagulation when able 3. History of PAF--cardiology consulted 4. Hypertension--stable 5. Post-COVID Pneumonia--on IV cefepime/vanc 6. COPD--on dexamethasone, oxygen and inhalers DVT/VTE Risk/Contraindication: Risk Factor Score Per Nursin RFS Level Per Nursing on Admit: 4+=Very High NANNETTE REVELES DO Feb 01, 2020 12:40
--- NOTE | 2020-02-01 12:56 | Diagnostic Imaging Report ---
INDICATION: Cough, congestion. COMPARISON: 01/28/2020. TECHNIQUE: Single radiograph of the chest dated 02/01/2020. FINDINGS: The pacer device overlying the left chest is again identified. The cardiac silhouette is mildly enlarged. Mild central pulmonary vascular congestion, appearing similar. Decreased lung volumes with minimal peripheral patchy pulmonary opacities, slightly improved since the prior exam, particularly within the lung bases. No significant pleural effusion. No pneumothorax. No acute osseous abnormality. IMPRESSION: Stable mild cardiomegaly with central pulmonary vascular congestion. Decreased lung volumes with minimally improved bilateral pulmonary opacities. Dictated by: Dictated on workstation # [id number]
--- NOTE | 2020-02-01 13:18 | Pulmonary Consultation ---
History of Present Illness History of Present Illness Date Seen by Provider: Feb 01, 2020 Time Seen by Provider: 13:14 Date of Admission Reason for Visit: pulmonary embolism Allergies and Home Medications Allergies Coded Allergies: Penicillins (Unverified Allergy, Severe, Pt has received Cefepime & Ceftriaxone in the past w/o issue, 09/22/19) SWELLING, RASH, ITCHING Sulfa (Sulfonamide Antibiotics) (Verified Allergy, Mild, 09/22/19) RASH aspirin (Verified Adverse Reaction, Mild, ASPIRIN SENSITIVE, 09/22/19) UPSET STOMACH sumatriptan (Verified Adverse Reaction, Mild, PALPITATIONS, 09/22/19) IRRITABLE Home Medications Apixaban 5 Mg Tablet, 5 MG PO BID, (Reported) LAST FILLED 10-07-2019 #180/90 DAY SUPPLY Ascorbate Calcium 500 Mg Tablet, 500 MG PO DAILY, (Reported) Baclofen 10 Mg Tablet, 20 MG PO BID, (Reported) TAKES 2 (20MG) TABS Cholecalciferol (Vitamin D3) 25 Mcg Capsule, 25 MCG PO DAILY, (Reported) Diltiazem HCl 240 Mg Cap.er.24h, 240 MG PO DAILY, (Reported) Dulaglutide 0.75 Mg/0.5 Ml Pen.injctr, 0.75 MG SC WEEKLY, (Reported) LAST FILLED 09-29-2019 #6/86 DAY SUPPLY Insulin NPH Human Isophane 100 Unit/1 Ml Vial, 50 UNIT SQ BID, (Reported) Metoprolol Tartrate 50 Mg Tablet, 50 MG PO BID, (Reported) Montelukast Sodium 10 Mg Tablet, 10 MG PO HS, (Reported) Omeprazole 40 Mg Capsule.dr, 40 MG PO BID, (Reported) Pramipexole Di-HCl 1 Mg Tablet, 1 MG PO 1600, (Reported) TAKES IN THE LATE AFTERNOON Past Rtsgjty-Mgmuxa-Fpltlh Hx Past Med/Social Hx: Reviewed Nursing Past Med/Soc Hx, Reviewed and Corrections made Patient Social History Alcohol Use: Denies Use Recreational Drug Use: No 2nd Hand Smoke Exposure: Yes Recent Foreign Travel: No Contact w/Someone Who Travel: No Recent Infectious Disease Expo: Yes Recent Hopitalizations: No Immunizations Up To Date Tetanus Booster (TDap): Unknown PED Vaccines UTD: No Date of Pneumonia Vaccine: Apr 04, 2018 Date of Influenza Vaccine: Jan 08, 2020 Seasonal Allergies Seasonal Allergies: Yes Past Medical History Surgeries: Yes (LAP CORNELIUS; C-SPINE FUSION/DISCECTOMY C5-C6 ) Abdominal, Appendectomy, Cardiac, Defibrillator, Eye Surgery, Gallbladder, Hysterectomy, Oophorectomy, Orthopedic, Pacemaker, Tonsillectomy Respiratory: Yes (O2 AT 2L/NC CONTINUOUSLY) Asthma, Pneumonia, Chronic Bronchitis, Sleep Apnea, COPD Currently Using CPAP: No Currently Using BIPAP: No Cardiac: Yes (PACEMAKER/DEFIBRILLATOR;CARDIAC ARREST DURING ENT SURGERY;PSVT/PALPITATIONS) Atrial Fibrillation, Chronic Edema/Swelling, Coronary Artery Disease, High Cholesterol, Hypertension, Irregular Heartbeat Neurological: Yes (PERIPHERAL NEUROPATHY HANDS/FEET; CHRONIC HEADACHES) Headaches /Migraines, Neuropathy, TIA 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 Disorders: No Female 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 Disorders: Denies 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 PAIN) Degenerate Disk Disease, Arthritis, Fibromyalgia, Chronic Back Pain, Fractures Endocrine: Yes Diabetes, Insulin dep, Diabetes, Non-Insulin dep HEENT: Yes (S/P BILATERAL CATARACT SURGERY + YAG PROCEDURE;ENT SURG WITH CARDIAC ARREST) Cataract Loss of Vision: Denies Hearing Impairment: Denies Cancer: No Psychosocial: Yes Anxiety, Depression Integumentary: Yes (NELIA INTERTRIGO) Pruritis Blood Disorders: No Adverse Reaction/Blood Tranf: No Family Medical History Alzheimer's disease 19 FATHER Cardiovascular disease 19 FATHER 19 MOTHER Completed stroke 19 MOTHER Hypertension 19 FATHER 19 MOTHER Myocardial infarction 19 FATHER 19 MOTHER No Family History of: Diabetes mellitus PSH: -T12 KYPHOPLASTY -C5-C6 CERVICAL DISCECTOMY WITH FUSION 04/2018 -LAP CORNELIUS FUNDOPLICATION -EGD'S/ESOPHAGEAL DILATIONS/COLONOSCOPIES/POLYPECTOMIES -PACEMAKER/DEFIBRILLATOR -HYSTERECTOMY/BSO -CHOLECYSTECTOMY -APPENDECTOMY -TONSILLECTOMY -OVARIAN CYST SURGERIES X 4 -CYST FROM BACK REMOVED -ENT SURGERY -BILATERAL CARPAL TUNNEL REPAIR -BILATERAL CATARACT SURGERY + YAG PROCEDURE PMH: -CHRONIC NECK PAIN WITH CERVICAL RADICULOPATHY -RESTLESS LEG SYNDROME -CHRONIC BACK PAIN -T12 COMPRESSION WITH KYPHOPLASTY -HAS HAD POST OP RESPIRATORY FAILURE IN PAST -HAD CARDIAC ARREST WITH ENT SURGERY -CAROTID DISEASE--40-50% STENOSIS BILAT ICA -PAROXYSMAL A FIB--HAS REFUSED ORAL ANTICOAGULANTS -HX OF V-FIB AND BRADYCARDIA--S/P PACEMAKER/DEFIBRILLATOR -08/23/19--CARDIAC CATH--NO SIGNIFICANT CORONARY ARTERY DISEASE, EF 50% Sepsis Event Evaluation Height, Weight, BMI Height: 5'4.00" Weight: 215lbs. 0oz. 97.710461xd; 33.56 BMI Method:Stated Exam Exam Vital Signs Date Time Temp Pulse Resp B/P (MAP) Pulse Ox O2 Delivery O2 Flow Rate FiO2 02/01/20 12:00 37.4 86 20 143/85 (104) 95 Vapotherm 20.00 40.00 02/01/20 11:11 Vapotherm 20.00 40.00 02/01/20 11:11 95 Vapotherm 30.00 02/01/20 08:23 36.4 02/01/20 08:00 71 18 140/78 (98) 94 Vapotherm 40.00 45.00 02/01/20 08:00 Vapotherm 40.00 40 02/01/20 07:16 93 30.00 45 02/01/20 07:14 95 Vapotherm 40.00 45 02/01/20 06:40 62 02/01/20 04:00 60 24 143/82 (102) 95 Vapotherm 40.00 45.00 02/01/20 02:49 66 18 139/79 (99) 96 Vapotherm 40.00 45.00 02/01/20 01:00 60 02/01/20 00:33 64 12 142/115 (124) 96 Vapotherm 40.00 45.00 01/31/20 21:00 Vapotherm 40.00 40 01/31/20 20:00 70 26 132/71 (91) 95 Vapotherm 40.00 45.00 01/31/20 19:25 87 01/31/20 19:24 36.4 88 20 158/79 (105) 91 Vapotherm 40.00 45.00 01/31/20 19:05 96 Vapotherm 40.00 45 01/31/20 17:03 94 Vapotherm 40.00 45 01/31/20 16:00 Vapotherm 35.00 40 01/31/20 15:48 36.4 69 20 124/88 (100) 95 Vapotherm 40.00 45.00 I & O 02/01/20 07:00 Intake Total 3462.5 ml Output Total 3275 ml Balance 187.5 ml Height & Weight Height: 5'4.00" Weight: 215lbs. 0oz. 97.461682tp; 33.56 BMI Method:Stated General Appearance: No Apparent Distress HEENT: PERRL/EOMI Neck: Full Range of Motion, Non Tender, Supple Respiratory: Decreased Breath Sounds, Rhonci Cardiovascular: Regular Rate, Rhythm, Systolic Murmur Capillary Refill: Less Than 3 Seconds Gastrointestinal: normal bowel sounds, non tender, soft Extremity: Non Tender, No Calf Tenderness, No Pedal Edema Neurologic/Psychiatric: Alert, Oriented x3 Skin: Normal Color, Warm/Dry Lymphatic: No Adenopathy Results Lab Laboratory Tests 01/31/20 09:23 Assessment/Plan Assessment/Plan Acute hypoxia -Check BNP Bilateral pulmonary emboli HX of COPD -Albuterol -Advair CP with Paroxysmal atrial fibrillation -Cardiology following CAD Back pain THERESA RAMIREZ DO Feb 01, 2020 13:18
--- NOTE | 2020-02-01 15:13 | Physical Therapy Evaluation ---
PT Evaluation-General Medical Diagnosis Admission Date Jan 29, 2020 at 01:05 Medical Diagnosis: bilateral pulmonary emboli Onset Date: Jan 29, 2020 Therapy Diagnosis Therapy Diagnosis: impaired mobility, strength, endurance Height/Weight Height (Feet): 5 Height (Inches): 4.00 Weight (Pounds): 215 Weight (Ounces): 0 Precautions Precautions/Isolations: Fall Prevention, Standard Precautions Referral Physician: Franklin Reason for Referral: Evaluation/Treatment Medical History Pertinent Medical History: CAD, COPD, DM, Diverticulitis, GERD, HI, Neuropathy Additional Medical History Past Medical History Surgeries: Yes (LAP CORNELIUS; C-SPINE FUSION/DISCECTOMY C5-C6 ) Abdominal, Appendectomy, Cardiac, Defibrillator, Eye Surgery, Gallbladder, Hysterectomy, Oophorectomy, Orthopedic, Pacemaker, Tonsillectomy Respiratory: Yes (O2 AT 2L/NC CONTINUOUSLY) Asthma, Pneumonia, Chronic Bronchitis, Sleep Apnea, COPD Currently Using CPAP: No Currently Using BIPAP: No Cardiac: Yes (PACEMAKER/DEFIBRILLATOR;CARDIAC ARREST DURING ENT SURGERY;PSVT/PALPITATIONS) Atrial Fibrillation, Chronic Edema/Swelling, Coronary Artery Disease, High Cholesterol, Hypertension, Irregular Heartbeat Neurological: Yes (PERIPHERAL NEUROPATHY HANDS/FEET; CHRONIC HEADACHES) Headaches /Migraines, Neuropathy, TIA 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 Disorders: No Female 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 Disorders: Denies RN SUPPLEMENTAL History: Hysterectomy Sexually Transmitted Disease: No Genitourinary: Yes Kidney Infection, Bladder Infection, Kidney Stones, UTI-Chronic Gastrointestinal: Yes (S/P CORNELIUS FUNDOPLICATION; ESOPHAGEAL STRICTURES/DILATIONS; DYSPHAGIA) Gastroesophageal Reflux, Diverticulosis, Hemorrhoids, Polyps, C-Diff, Hiatal Hernia, Ulcer, Irritable Bowel Musculoskeletal: Yes (CHRONIC NECK PAIN/RADICU;T12 COMPRESSION FX;CHRONIC SHOULDER PAIN;GEN. PAIN) Degenerate Disk Disease, Arthritis, Fibromyalgia, Chronic Back Pain, Fractures Endocrine: Yes Diabetes, Insulin dep, Diabetes, Non-Insulin dep HEENT: Yes (S/P BILATERAL CATARACT SURGERY + YAG PROCEDURE;ENT SURG WITH CARDIAC ARREST) Cataract Loss of Vision: Denies Hearing Impairment: Denies Cancer: No Psychosocial: Yes Anxiety, Depression Integumentary: Yes (NELIA INTERTRIGO) Pruritis Reviewed History: Yes Social History Current Living Status: Spouse Entry Into Home: Stairs Without Railing Prior Prior Level of Function SCALE: Activities may be completed with or without assistive devices. 6-Dhghdhkejl-nwflave completes the activity by him/herself with no assistance from a helper. 5-Set-up or Clean-up Assistance-helper sets up or cleans up; patient completes activity. Perry assists only prior to or following the activity. 4-Supervision or Touching Assistance-helper provides verbal cues and/or touching/steadying and/or contact guard assistance as patient completes activit y. Assistance may be provided throughout the activity or intermittently. 3-Partial/Moderate Assistance-helper does LESS THAN HALF the effort. Perry lifts, holds or supports trunk or limbs, but provides less than half the effort. 2-Substantial/Maximal Assistance-helper does MORE THAN HALF the effort. Perry lifts or holds trunk or limbs and provides more than half the effort. 8-Rdybrizki-aneqay does ALL the effort. Patient does none of the effort to complete the activity. Or, the assistance of 2 or more helpers is required for the patient to complete the activity. If activity was not attempted, code reason: 7-Patient Refused. 9-Not Applicable-not attempted and the patient did not perform the activity before the current illness, exacerbation or injury. 10-Not Attempted due to Environmental Limitations-(lack of equipment, weather restraints, etc.). 88-Not Attempted due to Medical Conditions or Safety Concerns. Bed Mobility: 6 Transfers (B,C,W/C): 6 Gait: 6 Stairs: 6 Indoor Mobility (Ambulation): Independent Stairs: Independent Patient recently had been using a single point cane and says she would often find the steps to enter her home very hard and could feel herself getting weaker. PT Evaluation-Current Subjective Patient in bed pre tx, agrees to PT, has unrated low back and neck pain and has a headache. Pt/Family Goals "to get stronger" Objective Patient Orientation: Person, Place, Situation Attachments: Oxygen ROM/Strength ROM Lower Extremities WNL Strength Lower Extremities 3+/5 gross BLE Sensory Hearing: Functional Sensation Right Lower Extremit: Impaired Sensation Left Lower Extremity: Impaired Transfers Roll Left to Right (QC): 3 Sit to Lying (QC): 3 Lying to Sitting/Side of Bed(Q: 3 Sit to Stand (QC): 3 Patient needs min assist for supine to sit and mod assist for sit to supine, patient needs mod assist for sit to stand. Attempted to perform a stand pivot transfer using a rolling walker but patient's knees kept buckling and it was decided not to perform transfer for safety. Balance Sitting Static: Fair Sitting Dynamic: Fair Standing Static: Fair Standing Dynamic: Poor Treatment BLE exercises x10 (AP, QS) Assessment/Needs Patient very SOB with treatment but heart rate stayed in the 90's and O2 stayed around 94%. Rehab Potential: Fair PT General Internal Medicine Physician Goals General Internal Medicine Physician Goals PT Halfway Goals Time Frame: Feb 08, 2020 Roll Left & Right (QC): 6 Sit to Lying (QC): 6 Lying-Sitting on Side/Bed(QC): 6 Sit to Stand (QC): 4 Chair/Dhb-cv-Jxhyc Xfer(QC): 4 Walk 10 feet (QC): 4 PT Plan Problem List Problem List: Activity Tolerance, Functional Strength, Safety, Balance, Gait, Transfer, Bed Mobility, ROM Treatment/Plan Treatment Plan: Continue Plan of Care Treatment Plan: Bed Mobility, Education, Functional Activity Eileen, Functional Strength, Gait, Safety, Therapeutic Exercise, Transfers Treatment Duration: Feb 08, 2020 Frequency: 6 times per week Estimated Hrs Per Day: .25 hour per day Patient and/or Family Agrees t: Yes Safety Risks/Education Patient Education: Transfer Techniques, Correct Positioning, Safety Issues Teaching Recipient: Patient Teaching Methods: Demonstration, Discussion Response to Teaching: Reinforcement Needed Discharge Recommendations Plan Patient will perform bed mobility and transfer training, balance and endurance training, functional strengthening, stair training, gait training, and education, to improve functional mobility and independence at home. Therapy Discharge Recommendati: Scheduled Assistance, Post Acute PT Time/GCodes Time In: 1443 Time Out: 1502 Total Billed Treatment Time: 19 Total Billed Treatment 1 visit AP AVILES PT Feb 01, 2020 15:13
--- NOTE | 2020-02-01 15:26 | NUR ---
CM/SS: As per Procurement Officer Consult - pt is agreeable to go to [facility] for placement related to Long-Term Services. Spoke with Dr. Sin on this date and information verified per conversation physician had with pt on 01/31/20. Referral sent to [facility] for intermediate - Date of discharge - to be determined.
[2020-02-01] MEDS: PRAMIPEXOLE 0.5 MG TAB (MIRAPEX) PO SCH (16:58)
--- NOTE | 2020-02-01 17:10 | NUR ---
RD ASSESSMENT PMHx: afib; CAD; hypercholesterolemia; TIA; HTN; chronic UTI; GERD; diverticulosis; c-diff; hiatal hernia; irritable bowel; DM PT INTERACTION: Pt was awake and pleasant during nutrition assessment. Pt states current appetite is pretty good, though it was poor prior to thanksgi. Note avg PO intake 62% x2d, per chart review. Pt states following a regular diet at home, though she "watches her sugars." Pt states no issues with chewing/swallowing food. Pt states no recent issues with nausea, vomiting, constipation, or diarrhea, and that her last BM was prior to . Note pt not currently on bowel regimen per chart review. Pt states recent wt loss, but was unsure of amount/timeframe. Note recent 4# wt loss x4mon, per chart review. Pt states current DM management is pretty good. Note recent HbA1c of 7.8 (09/03/2019), per chart review. ABNORMAL NUTRITION-RELATED LAB VALUES LOW: K 3.5; Ca 7.6; HIGH: glu 328; Est. kcal needs: 0530-5885 kcal | 15-18 kcal/kg Est. Pro needs: 81-101 g Pro | 0.8-1.0 g Pro/kg PES STATEMENT: Inadequate oral intake (NI-2.1) related to loss of appetite as evidenced by pt interview, and avg PO intake 62% x2d. INTERVENTION: Continue with current diet order of CHO 60g/m 0snack diet. Pt may benefit from nutrition supplementation if PO intake declines. Offered diet education on DM management, but pt declined at this time. Will continue to follow and reassess as pt needs, intake, and status change. Yuridia Mo, MS RD LD [phone] cell
[2020-02-01] MEDS ORDERED: fluCOnazole (DIFLUCAN) 100 MG TAB PO NR (17:30)
[2020-02-01] MEDS: NYSTATIN CREAM (MYCOSTATIN) 30 GM TUBE TP SCH ×2 (17:55→22:03)
--- NOTE | 2020-02-01 18:25 | Physician Query Clarification ---
"Physician Query-General Query to Physician: The medical record reflects the following clinical scenario: History/Risk factors: COVID positive several weeks previous to this admission, Report of not taking Anticoagulation medications recently due to extreme weakness. Clinical Findings: SOA and chest heaviness, CTA: Bilateral central, segmental and subsegmental pulmonary and Nonspecific bilateral ground glass opacities and dependent consolidation in the lungs likely due to combination of the reported COVID diagnosis and atelectasis. emboli. Treatment: high dose lovenox, Eliquis Question: Can you further specify Acute Bilateral Pulmonary Emboli per the clinical indicators above? Please document response in the Progress Notes or Discharge Summary. 1. Acute Bilateral Pulmonary Emboli due to Covid 19 infection 2 Acute Bilateral Pulmonary Emboli cause not identified 3. Other, with explanation of clinical findings 4. Clinically undetermined, no explanation for clinical findings Please remember a lack of response to the above will prompt a phone page by CDI/coding staff. In responding to this query, please exercise your independent professional judgment. The purpose of this communication is to more accurately reflect the complexity of your patients condition. The fact that a question is asked does not imply that any particular answer is desired or expected. Thank you for timely response to this clarification. Jody Armando, MSN, RN RN Specialist-Clinical Doc Improvement CD -Health Info Mgmt Operations [address] [facility] t: [phone] | f: [phone] If you are unable to reach me at my extension, I may be working from home. Please contact me at [phone] PHYSICIAN RESPONSE: Based on the clinical findings in the record, please respond to the query above on this document as an addendum. Physician Response: Physician Response 1 If you have questions please contact: Wash Box Operator: Ext: Thank you for your time and cooperation. Clinical General Worker/Wash Box Operator This is a permanent part of the medical record JODY ARMANDO Feb 01, 2020 18:25 NANNETTE REVELES DO Feb 02, 2020 12:46"
--- NOTE | 2020-02-01 18:45 | Physician Query Clarification ---
"Physician Query-General Query to Physician: History/Risk factors: Large Bilateral PE, Covid 19, COPD Clinical Findings: SpO2 98% on 12L Oxymask, O2 needs 40-100%, RR 20-30 consistently, Large Bilateral PE, Covid 19 PNA(list no more than 2) Treatment: Supplemental Oxygen, Dexamethasone IV, Cefepime, Breathing RX Question: Do you agree with the impression of Acute on Chronic Respiratory failure per Dr. Felicita Whatley? If you agree, please document in Progress Notes or Discharge Summary. 1. Yes; will document Acute on Chronic Respiratory failure in the Progress Notes 2. No; will continue Chronic Stridor in the Progress Notes 3. Other; will document explanation of clinical findings 4. Clinically undetermined; no explanation for clinical findings Please remember a lack of response to the above will prompt a phone page by CDI/coding staff. In responding to this query, please exercise your independent professional judgment. The purpose of this communication is to more accurately reflect the complexity of your patients condition. The fact that a question is asked does not imply that any particular answer is desired or expected. Thank you for timely response to this clarification. Otf Bautista, MSN, RN RN Specialist-Clinical Doc Improvement CD -Health Info Mgmt Operations [address] [facility] t: [phone] | f: [phone] If you are unable to reach me at my extension, I may be working from home. Please contact me at [phone] PHYSICIAN RESPONSE: Based on the clinical findings in the record, please respond to the query above on this document as an addendum. Physician Response: Physician Response 3 If you have questions please contact: Jar Capper: Ext: Thank you for your time and cooperation. Clinical Lift Operator/Jar Capper This is a permanent part of the medical record OTF BAUTISTA Feb 01, 2020 18:45 NANNETTE REVELES DO Feb 02, 2020 12:47"
[2020-02-01] MEDS: MELATONIN 10 MG TABLET PO SCH (22:02)
[2020-02-01] MEDS: MONTELUKAST 10 MG (SINGULAIR) TAB PO SCH (22:02)
[2020-02-02] VITALS: BP 121/82
[2020-02-02] MEDS: CEFEPIME INJECTION 2,000 MG in WATER (STERILE) FOR INJECTION 20 ML IV SCH ×2 (00:07→11:52)
[2020-02-02] MEDS: ACETAMINOPHEN 500 MG TAB (TYLENOL) PO PRN (00:33)
[2020-02-02 04:00] VITALS: BP 134/78
[2020-02-02 04:41] LABS: CHLORIDE 103 MMOL/L (98-107); MEAN PLATELET VOLUME 9.8 fL (9.0-12.2); SODIUM 136 MMOL/L (135-145); WHITE BLOOD COUNT 9.9 10^3/uL (4.3-11.0)
[2020-02-02 04:43] LABS: GLUCOSE 205 MG/DL (70-105)
[2020-02-02 04:44] LABS: CARBON DIOXIDE 21 MMOL/L (21-32)
[2020-02-02 04:47] LABS: CREATININE SERUM 0.75 MG/DL (0.60-1.30); GFR ESTIMATED > 60
[2020-02-02 04:48] LABS: BUN/CREATININE RATIO 16
--- NOTE | 2020-02-02 04:58 | Pulmonary Progress Note ---
Subjective Time Seen by a Provider: 04:53 Sepsis Event Evaluation Height, Weight, BMI Height: 5'4.00" Weight: 215lbs. 0oz. 97.777467gb; 33.56 BMI Method:Stated Exam Exam Vital Signs Date Time Temp Pulse Resp B/P (MAP) Pulse Ox O2 Delivery O2 Flow Rate FiO2 02/02/20 01:00 67 02/02/20 00:00 68 25 121/82 (95) 90 High Flow N/C 6.00 02/01/20 21:00 High Flow N/C 8.00 02/01/20 20:00 71 27 143/78 (99) 95 High Flow N/C 6.00 02/01/20 19:00 70 02/01/20 18:49 95 High Flow N/C 8.00 02/01/20 16:45 High Flow N/C 6.00 02/01/20 16:00 37.6 02/01/20 16:00 78 30 146/87 (106) 94 High Flow N/C 10.00 02/01/20 15:14 95 High Flow N/C 10.00 02/01/20 14:40 High Flow N/C 10.00 02/01/20 14:40 High Flow N/C 10.00 02/01/20 13:02 89 02/01/20 12:00 37.4 86 20 143/85 (104) 95 Vapotherm 20.00 40.00 02/01/20 11:11 Vapotherm 20.00 40.00 02/01/20 11:11 95 Vapotherm 30.00 02/01/20 08:23 36.4 02/01/20 08:00 71 18 140/78 (98) 94 Vapotherm 40.00 45.00 02/01/20 08:00 Vapotherm 40.00 40 02/01/20 07:16 93 30.00 45 02/01/20 07:14 95 Vapotherm 40.00 45 02/01/20 06:40 62 I & O 02/02/20 07:00 Intake Total 880 ml Output Total 2950 ml Balance -2070 ml Height & Weight Height: 5'4.00" Weight: 215lbs. 0oz. 97.558373sr; 33.56 BMI Method:Stated General Appearance: No Apparent Distress HEENT: PERRL/EOMI Neck: Full Range of Motion, Non Tender, Supple Respiratory: Decreased Breath Sounds, Rhonci Cardiovascular: Regular Rate, Rhythm, Systolic Murmur Capillary Refill: Less Than 3 Seconds Gastrointestinal: normal bowel sounds, non tender, soft Extremity: Non Tender, No Calf Tenderness, No Pedal Edema Neurologic/Psychiatric: Alert, Oriented x3 Skin: Normal Color, Warm/Dry Lymphatic: No Adenopathy Results Lab Laboratory Tests 01/31/20 09:23 02/02/20 03:58 Assessment/Plan Assessment/Plan Acute hypoxia -BNP is elevated -SL IVF -Give 40mg of IV Lasix x 1 -K dur Bilateral pulmonary emboli HX of COPD -Albuterol--- change to DuoNeb -Adv CP with Paroxysmal atrial fibrillation -Cardiology following CAD Back pain THERESA RAMIREZ DO Feb 02, 2020 04:58
[2020-02-02] MEDS ORDERED: FUROSEMIDE 40 MG/4 ML INJ (LASIX) IVP ONE (05:00)
[2020-02-02] MEDS: inSUlin ASPART (NovoLOG) 1 UNIT/0.01 ML (CHARGE PER UNIT) SC SCH ×4 (06:45→21:00)
--- NOTE | 2020-02-02 07:10 | Diagnostic Imaging Report ---
Indication: Shortness of air. Compared: 02/01/2020. Findings: Infiltrate in the right upper lobe is improved. Perihilar opacities bilaterally have decreased. No effusion. No pneumothorax. Impression: Improvements in infiltrates, no adverse change. Dictated by: Dictated on workstation # [id number]
[2020-02-02 07:57] VITALS: BP 122/74
[2020-02-02] MEDS ORDERED: KCL 20 MEQ TAB (K-DUR) PO ONE (08:00)
[2020-02-02] MEDS: ADVAIR HFA 115/21 MCG INHALER 8 GM IH SCH ×2 (08:08→19:21)
[2020-02-02] MEDS: RT-ALBUTEROL/IPRATROPIUM 3 ML (DUONEB) VIAL INH SCH ×5 (08:08→23:37)
[2020-02-02] MEDS: ASCORBIC ACID (VIT C) 500 MG TABLET PO SCH (09:07)
[2020-02-02] MEDS: fluCOnazole (DIFLUCAN) 100 MG TAB PO SCH (09:07)
[2020-02-02] MEDS: VITAMIN D3 25 MCG (1,000 UNITS) TABLET PO SCH (09:07)
[2020-02-02] MEDS: ASPIRIN E.C. 325 MG (ECOTRIN) TABLET PO SCH (09:07)
[2020-02-02] MEDS: PANTOPRAZOLE 40 MG (PROTONIX) TAB PO SCH ×2 (09:08→20:53)
[2020-02-02] MEDS: BACLOFEN 10 MG (LIORESAL) TAB PO SCH ×2 (09:08→20:53)
[2020-02-02] MEDS: APIXABAN 5 MG (ELIQUIS) TABLET PO SCH ×2 (09:08→20:53)
[2020-02-02] MEDS: NYSTATIN CREAM (MYCOSTATIN) 30 GM TUBE TP SCH ×3 (09:09→20:54)
[2020-02-02] MEDS: inSUlin NPH (NovoLIN N) 1 UNIT/0.01 ML (CHARGE PER UNIT) SQ SCH ×2 (09:15→20:55)
[2020-02-02 10:44] VITALS: BP 111/71
--- NOTE | 2020-02-02 11:20 | NUR ---
CM/SS: Visited with pt as per Social Service Consult related to out of home placement - new. Skilled rehab at [facility] - pt agreed on 01/30. Plan: Pt to go to skilled facility - preferred [facility] when deemed appropriate at time of discharge. Summary: Pt is in bed at the time of the visit. Pt is on Vapotherm. Pt reports she thinks she is doing better, and she just had to come in to the hospital. This worker introduced herself and pt remember this worker from calling and talking to her while her was in the hospital on last week. Discussed with pt her plan of going to [facility] - she is ok with that, she knows that her can not take care of her at home at this time. She expresses some concern for her and reports he suffers from some dementia. 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 Discuss family. Pt has a son Aaron that lives in [place] and another son (Naresh) that lives in [place]. Pt request this worker call him and give him an update on her condition. She reports he does not handle things well. He is in healthcare profession. Naresh's phone number is [phone]. Advanced Directives discussed - pt is encouraged to think about it as to what she would want and who she would want making health care decisions for her if she could not. She reports spouse to have some dementia so it would likely be one of her sons. She is encouraged to give this some thought. She is explained the process for referral to [facility]. She verbalizes understanding. This worker will follow up by calling son as well assist in discharge planning.
--- NOTE | 2020-02-02 12:08 | Physical Therapy Daily Note ---
PT Daily Note-Current Subjective Patient is very agreeable to participate with therapy. Mental Status Patient Orientation: Normal For Age Attachments: Oxygen (vapotherm), IV Transfers SCALE: Activities may be completed with or without assistive devices. 1-Jufiwgaqnz-pvewmum completes the activity by him/herself with no assistance from a helper. 5-Set-up or Clean-up Assistance-helper sets up or cleans up; patient completes activity. Odell assists only prior to or following the activity. 4-Supervision or Touching Assistance-helper provides verbal cues and/or touching/steadying and/or contact guard assistance as patient completes act ivity. Assistance may be provided throughout the activity or intermittently. 3-Partial/Moderate Assistance-helper does LESS THAN HALF the effort. Odell lifts, holds or supports trunk or limbs, but provides less than half the effort. 2-Substantial/Maximal Assistance-helper does MORE THAN HALF the effort. Odell lifts or holds trunk or limbs and provides more than half the effort. 3-Hrfdozguc-drvazf does ALL the effort. Patient does none of the effort to complete the activity. Or, the assistance of 2 or more helpers is required for the patient to complete the activity. If activity was not attempted, code reason: 7-Patient Refused. 9-Not Applicable-not attempted and the patient did not perform the activity before the current illness, exacerbation or injury. 10-Not Attempted due to Environmental Limitations-(lack of equipment, weather restraints, etc.). 88-Not Attempted due to Medical Conditions or Safety Concerns. Lying to Sitting/Side of Bed(Q: 5 Sit to Stand (QC): 2 Chair/Wkw-vb-Gslvp Xfer(QC): 2 sit to stand x 3 sets to FWW then SPT Gait Training Does the Patient Walk?: No and Walking Goal IS indicated Distance: 3 side steps to left Gait Assistive Device: FWW Exercises Supine Ex: Ankle pumps, Quad Set, Heel Slides, Straight leg raise Supine Reps: 10 Seated Therapy Exercises: Long arc quads Seated Reps: 15 Assessment Patient is up in recliner with needs met. Improved from yesterday with ability to perform standing to FWW PT Oil And Gas Exploration Technician Goals Oil And Gas Exploration Technician Goals PT Residential Goals Time Frame: Feb 08, 2020 Roll Left & Right (QC): 6 Sit to Lying (QC): 6 Lying-Sitting on Side/Bed(QC): 6 Sit to Stand (QC): 4 Chair/Uqa-pu-Mylhm Xfer(QC): 4 Walk 10 feet (QC): 4 PT Plan Treatment/Plan Treatment Plan: Continue Plan of Care Treatment Plan: Bed Mobility, Education, Functional Activity Eileen, Functional Strength, Gait, Safety, Therapeutic Exercise, Transfers Treatment Duration: Feb 08, 2020 Frequency: 6 times per week Estimated Hrs Per Day: .25 hour per day Patient and/or Family Agrees t: Yes Time/GCodes Time In: 1100 Time Out: 1123 Total Billed Treatment Time: 23 Total Billed Treatment 1 visit FA 14 min EX 9 min IRENE NEGRO PT Feb 02, 2020 12:08
--- NOTE | 2020-02-02 12:28 | Progress Note - Cardiology ---
Cardiology SOAP Progress Note Subjective: Sitting up in recliner at the bedside. Generalized weakness. Reports frequent, dry cough. C/O chest soreness. Objective: I&O/Vital Signs 02/02/20 02/02/20 02/02/20 02/02/20 06:30 07:57 08:00 08:05 Temp 37.0 Pulse 83 72 81 Resp 27 22 B/P (MAP) 122/74 (90) Pulse Ox 91 96 O2 Delivery Vapotherm Vapotherm Vapotherm O2 Flow Rate 20.00 20.00 20.00 40.00 40.00 FiO2 40 02/02/20 02/02/20 02/02/20 02/02/20 08:08 10:44 10:53 12:00 Temp 36.9 Pulse 64 76 Resp 24 22 B/P (MAP) 111/71 (84) Pulse Ox 94 96 93 94 O2 Delivery High Flow N/C Vapotherm Vapotherm Vapotherm O2 Flow Rate 20.00 20.00 20.00 20.00 40.00 40.00 FiO2 40 40 02/02/20 02/02/20 02/02/20 12:27 15:18 16:00 Temp 36.2 Pulse 86 75 Resp 20 B/P (MAP) 138/98 (111) Pulse Ox 94 92 O2 Delivery Vapotherm Vapotherm O2 Flow Rate 20.00 20.00 40.00 FiO2 40 02/02/20 00:00 Intake Total 880 ml Output Total 2950 ml Balance -2070 ml Weight (Pounds): 215 Weight (Ounces): 0 Weight (Calculated Kilograms): 97.919917 Constitutional: AAO x 3, well-developed, well-nourished Respiratory: No accessory muscle use, No respiratory distress; chest expansion is symmetric, chest is bilaterally symmetric, other (diminished with poor inspiratory effort) Cardiovascular: regular rate-rhythm Gastrointestional: No tender; soft, round Extremities: no lower extremity edema bilateral Neurologic/Psychiatric: grossly intact (moves all extremities) Skin: No rash on exposed areas, No ulcerations on exposed areas Results/Procedures: Labs Laboratory Tests 02/01/20 16:52: Glucometer 269H 02/01/20 21:59: Glucometer 293H 02/02/20 03:58: White Blood Count 9.9, Red Blood Count 4.24, Hemoglobin 12.0, Hematocrit 39, Mean Corpuscular Volume 91, Mean Corpuscular Hemoglobin 28, Mean Corpuscular Hemoglobin Concent 31L, Red Cell Distribution Width 13.8, Platelet Count 285, Mean Platelet Volume 9.8, Sodium Level 136, Potassium Level 4.0, Chloride Level 103, Carbon Dioxide Level 21, Anion Gap 12, Blood Urea Nitrogen 12, Creatinine 0.75, Estimat Glomerular Filtration Rate > 60, BUN/Creatinine Ratio 16, Glucose Level 205H, Calcium Level 8.0L 02/02/20 06:32: Glucometer 153H 02/02/20 10:54: Glucometer 143H 02/02/20 16:05: Glucometer 363H Microbiology 01/28/20 Urine Culture - Final, Complete YEAST 01/28/20 Blood Culture - Preliminary, Resulted No growth 01/28/20 Influenza Types A,B Antigen (YOLIE) - Final, Complete Procedures NAME: BRAYDON ARBOLEDA [facility] REC#: [id number] PT STATUS: ADM IN : 1945 PHYSICIAN: THERESA SALEEM DO ADMIT DATE: 01/29/20/[facility] Signed Date of Exam:02/02/20 CHEST 1 VIEW, AP/PA ONLY Indication: Shortness of air. Compared: 02/01/2020. Findings: Infiltrate in the right upper lobe is improved. Perihilar opacities bilaterally have decreased. No effusion. No pneumothorax. Impression: Improvements in infiltrates, no adverse change. Dictated by: Dictated on workstation # [id number] Dict: 02/02/20 0638 Trans: 02/02/20 09 [facility] [id number] Interpreted by: GONZALO MOSHER Electronically signed by: GONZALO MOSHER 02/02/20 09 A/P: Assessment: Bilateral central, segmental and subsegmental pulmonary emboli. Evidence of right heart strain. Nonspecific bilateral groundglass opacities and dependent consolidation in the lungs likely due to combination of the reported COVID diagnosis and atelectasis. Per CTA of the chest on 01-28-2020 Chest pain, patient is reporting chest heaviness, likely secondary to pulmonary embolism Acute respiratory insufficiency, bilateral pulmonary embolism. Started on high- dose Eliquis, maintained on Vapotherm. Last cath on 09/22/19 (following MPI of 09/15/19 that showed apical ischemia): no angiographically significant CAD, LVEF 50%, LVEDP 14 mmHg PAF with RVR associated with hypotension Has refused OAC with anything other than ASA for stroke prophylaxis in the past S/p spinal fusion surgery and h/o post-op resp failure Echocardiogram of Jan 29, [address] Perez showed LVEF 55-65%; signs of RV strain with prssure and vol overload. Echo of 09/18/19: mild concentric LVH, LVEF 55-60%, mild AoV sclerosis w/o stenosis, PASP 35-40 mmHg Chronic pain: chronic migraine headaches, chronic body pains and fibromyalgia. History of perioperative bradycardia (asystole) and tachycardia (ventricular fibrillation). 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 DM II, insulin requiring, managed by [facility] leg breaker Chronic cough of undetermined etiology. Dr Saleem following and has diagnosed restrictive lung disease Bilateral intermittent leg swelling, chronic. Venous insuff study of 02/15/16 did not show DVT or reflux in the deep venous system or valvular insuff of greater or small saphenous system or AASV Less than 40% DANIELLE stenosis, 40-59% LICA stenosis on carotid u/s of 02/03/16. U/S of August 2018 showed less than 40% bilat ICA stenoses Plan: Continue current regimen Monitor lab Replace electrolytes as indicated YASMANI HAMILTON Feb 02, 2020 12:28
--- NOTE | 2020-02-02 12:42 | Progress Note ---
Subjective Date Seen by a Provider: Feb 02, 2020 Time Seen by a Provider: 12:38 Subjective/Events-last exam Fwup acute respiratory distress, bilateral PE, paroxysmal atrial fibrillation, COPD. C/O MCCORMICK and chest pain. Sitting up in chair. Back on Vapotherm. Objective Exam Vital Signs Date Time Temp Pulse Resp B/P (MAP) Pulse Ox O2 Delivery O2 Flow Rate FiO2 02/02/20 12:00 76 22 94 Vapotherm 20.00 40.00 02/02/20 10:53 93 Vapotherm 20.00 40 02/02/20 10:44 36.9 64 24 111/71 (84) 96 Vapotherm 20.00 40.00 02/02/20 08:08 94 High Flow N/C 20.00 40 02/02/20 08:05 81 02/02/20 08:00 Vapotherm 20.00 40 02/02/20 07:57 37.0 72 22 122/74 (90) 96 Vapotherm 20.00 40.00 02/02/20 06:30 83 27 91 Vapotherm 20.00 40.00 02/02/20 04:00 69 10 134/78 (96) 95 High Flow N/C 6.00 02/02/20 01:00 67 02/02/20 00:00 68 25 121/82 (95) 90 High Flow N/C 6.00 02/01/20 21:00 High Flow N/C 8.00 02/01/20 20:00 71 27 143/78 (99) 95 High Flow N/C 6.00 02/01/20 19:00 70 02/01/20 18:49 95 High Flow N/C 8.00 02/01/20 16:45 High Flow N/C 6.00 02/01/20 16:00 37.6 02/01/20 16:00 78 30 146/87 (106) 94 High Flow N/C 10.00 02/01/20 15:14 95 High Flow N/C 10.00 02/01/20 14:40 High Flow N/C 10.00 02/01/20 14:40 High Flow N/C 10.00 02/01/20 13:02 89 I & O 02/02/20 07:00 Intake Total 980 ml Output Total 5200 ml Balance -4220 ml Capillary Refill : Less Than 3 Seconds General Appearance: No Apparent Distress Respiratory: Lungs Clear Cardiovascular: Regular Rate, Rhythm, Systolic Murmur Gastrointestinal: normal bowel sounds, non tender, soft Extremity: Non Tender, No Calf Tenderness, No Pedal Edema Neurologic/Psychiatric: Alert, Oriented x3 Skin: Warm/Dry Results Lab Laboratory Tests 02/01/20 13:10: B-Type Natriuretic Peptide 179.3H 02/01/20 16:52: Glucometer 269H 02/01/20 21:59: Glucometer 293H 02/02/20 03:58: White Blood Count 9.9, Red Blood Count 4.24, Hemoglobin 12.0, Hematocrit 39, Mean Corpuscular Volume 91, Mean Corpuscular Hemoglobin 28, Mean Corpuscular Hemoglobin Concent 31L, Red Cell Distribution Width 13.8, Platelet Count 285, Mean Platelet Volume 9.8, Sodium Level 136, Potassium Level 4.0, Chloride Level 103, Carbon Dioxide Level 21, Anion Gap 12, Blood Urea Nitrogen 12, Creatinine 0.75, Estimat Glomerular Filtration Rate > 60, BUN/Creatinine Ratio 16, Glucose Level 205H, Calcium Level 8.0L 02/02/20 06:32: Glucometer 153H 02/02/20 10:54: Glucometer 143H Microbiology 01/28/20 Urine Culture - Final, Complete YEAST 01/28/20 Blood Culture - Preliminary, Resulted No growth 01/28/20 Influenza Types A,B Antigen (YOLIE) - Final, Complete Assessment/Plan Assessment/Plan Assess & Plan/Chief Complaint 1. Acute Bilateral Pulmonary Emboli--switched to eliquis, dose of toradol for pain/MCCORMICK 2. Right superficial femoral vein thrombosis--on eliquis 3. History of PAF--cardiology consulted 4. Hypertension--stable 5. Post-COVID Pneumonia--on IV cefepime/vanc 6. COPD--on dexamethasone, oxygen and inhalers Clinical Quality Measures Admission Status Admission Dx 1. Acute Bilateral Pulmonary Emboli--admit to Cardiac with high dose lovenox, on oxygen via NC 2. Right superficial femoral vein thrombosis--lovenox and then will transition to oral anticoagulation when able 3. History of PAF--cardiology consulted 4. Hypertension--stable 5. Post-COVID Pneumonia--on IV cefepime/vanc 6. COPD--on dexamethasone, oxygen and inhalers DVT/VTE Risk/Contraindication: Risk Factor Score Per Nursin RFS Level Per Nursing on Admit: 4+=Very High NANNETTE REVELES DO Feb 02, 2020 12:42
[2020-02-02] MEDS ORDERED: KETOROLAC 15 MG/ML VIAL IVP NR (12:45)
--- NOTE | 2020-02-02 14:45 | Progress Note - Cardiology ---
Cardiology SOAP Progress Note Subjective: Gen weakness and malaise Gen body discomfort Bilat chest wall and ribcage discomfort Shortness of breath with exertion No palp or syncope Poor appetite No n/v/d Objective: I&O/Vital Signs 02/02/20 02/02/20 02/02/20 02/02/20 04:00 06:30 07:57 08:00 Temp 37.0 Pulse 69 83 72 Resp 10 27 22 B/P (MAP) 134/78 (96) 122/74 (90) Pulse Ox 95 91 96 O2 Delivery High Flow N/C Vapotherm Vapotherm Vapotherm O2 Flow Rate 6.00 20.00 20.00 20.00 40.00 40.00 FiO2 40 02/02/20 02/02/20 02/02/20 02/02/20 08:05 08:08 10:44 10:53 Temp 36.9 Pulse 81 64 Resp 24 B/P (MAP) 111/71 (84) Pulse Ox 94 96 93 O2 Delivery High Flow N/C Vapotherm Vapotherm O2 Flow Rate 20.00 20.00 20.00 40.00 FiO2 40 40 02/02/20 02/02/20 12:00 12:27 Pulse 76 86 Resp 22 Pulse Ox 94 O2 Delivery Vapotherm O2 Flow Rate 20.00 40.00 02/01/20 23:59 Intake Total 880 ml Output Total 2950 ml Balance -2070 ml Weight (Pounds): 215 Weight (Ounces): 0 Weight (Calculated Kilograms): 97.088150 Constitutional: AAO x 3, well-developed, well-nourished Respiratory: No accessory muscle use, No respiratory distress; chest expansion is symmetric, chest is bilaterally symmetric, other (diminished with poor i nspiratory effort) Cardiovascular: regular rate-rhythm Gastrointestional: No tender; soft, round Extremities: no lower extremity edema bilateral Neurologic/Psychiatric: other (moves all limbs equally) Skin: No rash on exposed areas, No ulcerations on exposed areas Results/Procedures: Labs Laboratory Tests 02/01/20 16:52: Glucometer 269H 02/01/20 21:59: Glucometer 293H 02/02/20 03:58: White Blood Count 9.9, Red Blood Count 4.24, Hemoglobin 12.0, Hematocrit 39, Mean Corpuscular Volume 91, Mean Corpuscular Hemoglobin 28, Mean Corpuscular Hemoglobin Concent 31L, Red Cell Distribution Width 13.8, Platelet Count 285, Mean Platelet Volume 9.8, Sodium Level 136, Potassium Level 4.0, Chloride Level 103, Carbon Dioxide Level 21, Anion Gap 12, Blood Urea Nitrogen 12, Creatinine 0.75, Estimat Glomerular Filtration Rate > 60, BUN/Creatinine Ratio 16, Glucose Level 205H, Calcium Level 8.0L 02/02/20 06:32: Glucometer 153H 02/02/20 10:54: Glucometer 143H Microbiology 01/28/20 Urine Culture - Final, Complete YEAST 01/28/20 Blood Culture - Preliminary, Resulted No growth 01/28/20 Influenza Types A,B Antigen (YOLIE) - Final, Complete Laboratory Tests 02/02/20 03:58 A/P: Assessment: Bilateral central, segmental and subsegmental pulmonary emboli. Evidence of right heart strain. Nonspecific bilateral groundglass opacities and dependent consolidation in the lungs likely due to combination of the reported COVID diagnosis and atelectasis. Per CTA of the chest on 01-28-2020 Chest pain, patient is reporting chest heaviness, likely secondary to pulmonary embolism Acute respiratory insufficiency, bilateral pulmonary embolism. Started on high- dose Eliquis, maintained on Vapotherm. Last cath on 09/22/19 (following MPI of 09/15/19 that showed apical ischemia): no angiographically significant CAD, LVEF 50%, LVEDP 14 mmHg PAF with RVR associated with hypotension. Had previously refused OAC and had agreed only to ASA S/p spinal fusion surgery and h/o post-op resp failure Echocardiogram of Jan 29, [address] Perez showed LVEF 55-65%; signs of RV strain with prssure and vol overload. Echo of 09/18/19: mild concentric LVH, LV EF 55-60%, mild AoV sclerosis w/o stenosis, PASP 35-40 mmHg Chronic pain: chronic migraine headaches, chronic body pains and fibromyalgia. History of perioperative bradycardia (asystole) and tachycardia (ventricular fibrillation). 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 Dr Saleem following and has diagnosed restrictive lung disease Bilateral intermittent leg swelling, chronic. Venous insuff study of 02/15/16 did not show DVT or reflux in the deep venous system or valvular insuff of greater or small saphenous system or AASV Less than 40% DANIELLE stenosis, 40-59% LICA stenosis on carotid u/s of 02/03/16. U/S of August 2018 showed less than 40% bilat ICA stenoses Plan: Complex management due to multiple comorbidities (see above) Continue anticoag Monitor lab Replace electrolytes as indicated We interviewed and examined her and reviewed her hospital records ULI YOO MD FACP FAC CCDS Feb 02, 2020 14:45
--- NOTE | 2020-02-02 15:11 | NUR ---
CM/SS: Telephone Call to catina Gregory [phone] - per request of pt. Left voice mail message for his to return call to this worker.
--- NOTE | 2020-02-02 15:42 | NUR ---
CM/SS: Return call from Naresh - son of pt. He is given pt update. "mother is currently a pt here and is in room 512 and she has requested that this worker give you a call to update you on her current status. She has been pretty sick and she is currently on some high flow oxygen, she is getting better, but in order to increase her strength, it has been suggested that she go to a skilled facility in order to get stronger working with physical therapy and occupational therapy. She would, when able to discharge to our sister facility [facility] for a few weeks and be able to go home afterwards. The facility is next door to the hospital." Naresh is asked if he has any questions. He indicates he does not. He is encouraged that if he does he can call this worker - phone number given. This worker indicated if the pt wants this worker to call again to give an update then she will do so. Son does not say anything - this worker reported if he did not have any other questions, they would let him go. This worker thanked he for returning my call.
[2020-02-02 16:00] VITALS: BP 138/98
[2020-02-02] MEDS: PRAMIPEXOLE 0.5 MG TAB (MIRAPEX) PO SCH (16:12)
--- NOTE | 2020-02-02 16:30 | NUR ---
REPORT RECEIVED FROM FRANCESCO CHENEY
[2020-02-02 20:00] VITALS: BP 121/61
[2020-02-02] MEDS: MELATONIN 10 MG TABLET PO SCH (20:52)
[2020-02-02] MEDS: MONTELUKAST 10 MG (SINGULAIR) TAB PO SCH (20:53)
[2020-02-03] VITALS: BP 117/63
[2020-02-03] MEDS: RT-ALBUTEROL/IPRATROPIUM 3 ML (DUONEB) VIAL INH SCH ×4 (02:16→22:13)
[2020-02-03 04:00] VITALS: BP 142/76
[2020-02-03] MEDS: inSUlin ASPART (NovoLOG) 1 UNIT/0.01 ML (CHARGE PER UNIT) SC SCH ×4 (05:48→21:21)
[2020-02-03 08:00] VITALS: BP 134/75
[2020-02-03] MEDS ORDERED: KETOROLAC 15 MG/ML VIAL IVP NR (08:30)
[2020-02-03] MEDS ORDERED: fentaNYL INJECTION 100 MCG/2 ML AMP IVP NR (08:30)
[2020-02-03] MEDS: VITAMIN D3 25 MCG (1,000 UNITS) TABLET PO SCH (09:01)
[2020-02-03] MEDS: ASCORBIC ACID (VIT C) 500 MG TABLET PO SCH (09:01)
[2020-02-03] MEDS: ASPIRIN E.C. 325 MG (ECOTRIN) TABLET PO SCH (09:01)
[2020-02-03] MEDS: APIXABAN 5 MG (ELIQUIS) TABLET PO SCH ×2 (09:01→21:20)
[2020-02-03] MEDS: PANTOPRAZOLE 40 MG (PROTONIX) TAB PO SCH ×2 (09:01→21:20)
[2020-02-03] MEDS: inSUlin NPH (NovoLIN N) 1 UNIT/0.01 ML (CHARGE PER UNIT) SQ SCH ×2 (09:02→21:51)
[2020-02-03] MEDS: BACLOFEN 10 MG (LIORESAL) TAB PO SCH ×2 (09:02→21:20)
[2020-02-03] MEDS: fluCOnazole (DIFLUCAN) 100 MG TAB PO SCH (09:02)
[2020-02-03] MEDS: NYSTATIN CREAM (MYCOSTATIN) 30 GM TUBE TP SCH ×3 (09:06→21:21)
--- NOTE | 2020-02-03 09:13 | Pulmonary Progress Note ---
Subjective Time Seen by a Provider: 09:11 Subjective/Events-last exam PT appears to be doing better. Sepsis Event Evaluation Height, Weight, BMI Height: 5'4.00" Weight: 215lbs. 0oz. 97.471258vd; 33.56 BMI Method:Stated Exam Exam Vital Signs Date Time Temp Pulse Resp B/P (MAP) Pulse Ox O2 Delivery O2 Flow Rate FiO2 02/03/20 08:45 97 Nasal Cannula 5.00 02/03/20 08:00 35.6 66 20 134/75 (94) 96 Vapotherm 10.00 25.00 02/03/20 04:57 95 Vapotherm 20.00 30 02/03/20 04:00 37.0 60 20 142/76 (98) 95 Vapotherm 20.00 40.00 02/03/20 02:17 96 Vapotherm 20.00 35 02/03/20 01:00 73 02/03/20 00:00 36.8 65 20 117/63 (81) 94 Vapotherm 20.00 40.00 02/02/20 23:37 95 Vapotherm 20.00 40 02/02/20 21:00 Vapotherm 20.00 40 02/02/20 20:00 36.6 77 20 121/61 (81) 93 Vapotherm 20.00 40.00 02/02/20 19:22 Vapotherm 20.00 40 02/02/20 19:22 91 Vapotherm 20.00 40 02/02/20 19:00 73 02/02/20 16:30 Vapotherm 20.00 40 02/02/20 16:00 36.2 75 20 138/98 (111) 92 Vapotherm 20.00 40.00 02/02/20 15:18 94 Vapotherm 20.00 40 02/02/20 12:27 86 02/02/20 12:00 76 22 94 Vapotherm 20.00 40.00 02/02/20 10:53 93 Vapotherm 20.00 40 02/02/20 10:44 36.9 64 24 111/71 (84) 96 Vapotherm 20.00 40.00 I & O 02/03/20 07:00 Intake Total 1395 ml Output Total 2100 ml Balance -705 ml Height & Weight Height: 5'4.00" Weight: 215lbs. 0oz. 97.853593zk; 33.56 BMI Method:Stated General Appearance: No Apparent Distress HEENT: PERRL/EOMI Neck: Full Range of Motion, Non Tender, Supple Respiratory: Lungs Clear Cardiovascular: Regular Rate, Rhythm, Systolic Murmur Capillary Refill: Less Than 3 Seconds Gastrointestinal: normal bowel sounds, non tender, soft Extremity: Non Tender, No Calf Tenderness, No Pedal Edema Neurologic/Psychiatric: Alert, Oriented x3 Skin: Warm/Dry Lymphatic: No Adenopathy Results Lab Laboratory Tests 02/02/20 03:58 Assessment/Plan Assessment/Plan Acute hypoxia -BNP is elevated -SL IVF -Give 40mg of IV Lasix x 1 -K dur Bilateral pulmonary emboli -Continue Eliquis HX of COPD -Albuterol--- change to DuoNeb -Advair CP with Paroxysmal atrial fibrillation -Cardiology following CAD Back pain THERESA RAMIREZ DO Feb 03, 2020 09:13
--- NOTE | 2020-02-03 09:53 | Progress Note - Cardiology ---
Cardiology SOAP Progress Note Subjective: Sitting up in the recliner at the bedside. States she is feeling a little bit better today. Chest pain improving. No c/o palpitations, syncope or near syncope. Dyspnea improving.. Objective: I&O/Vital Signs 02/04/20 02/04/20 02/04/20 02/04/20 21:39 22:00 22:03 23:03 Temp 36.9 Pulse 60 Pulse Ox 95 95 95 O2 Delivery Nasal Cannula Nasal Cannula Nasal Cannula O2 Flow Rate 4.00 3.00 3.00 02/04/20 02/05/20 02/05/20 02/05/20 23:18 01:00 04:10 05:10 Temp 36.1 36.9 Pulse 67 69 60 Resp 20 22 B/P (MAP) 126/63 (84) 160/90 (113) Pulse Ox 96 94 O2 Delivery Nasal Cannula Nasal Cannula Nasal Cannula O2 Flow Rate 3.00 3.00 3.00 02/05/20 02/05/20 07:10 07:30 Temp 36.6 Pulse 75 Resp 20 B/P (MAP) 140/70 (93) Pulse Ox 94 94 O2 Delivery Nasal Cannula Nasal Cannula O2 Flow Rate 3.00 3.00 02/05/20 00:00 Intake Total 2560 ml Output Total 2950 ml Balance -390 ml Weight (Pounds): 215 Weight (Ounces): 0 Weight (Calculated Kilograms): 97.721566 Constitutional: AAO x 3, well-developed, well-nourished Respiratory: No accessory muscle use, No respiratory distress; chest expansion is symmetric, chest is bilaterally symmetric, other (diminished with poor inspiratory effort) Cardiovascular: regular rate-rhythm Gastrointestional: No tender; soft, round Extremities: no lower extremity edema bilateral Neurologic/Psychiatric: other (moves all limbs equally) Skin: No rash on exposed areas, No ulcerations on exposed areas Results/Procedures: Labs Laboratory Tests 02/04/20 11:13: Glucometer 149H 02/04/20 16:09: Glucometer 288H 02/04/20 20:55: Glucometer 206H 02/05/20 05:01: Glucometer 159H Microbiology 01/28/20 Urine Culture - Final, Complete YEAST 01/28/20 Blood Culture - Final, Complete No growth 11/26/20 Influenza Types A,B Antigen (YOLIE) - Final, Complete A/P: Assessment: Bilateral central, segmental and subsegmental pulmonary emboli. Evidence of right heart strain. Nonspecific bilateral groundglass opacities and dependent consolidation in the lungs likely due to combination of the reported COVID junie gnosis and atelectasis. Per CTA of the chest on 01-28-2020 Chest pain, patient is reporting chest heaviness, likely secondary to pulmonary embolism Acute respiratory insufficiency, bilateral pulmonary embolism. Started on high- dose Eliquis, maintained on Vapotherm. Last cath on 09/22/19 (following MPI of 09/15/19 that showed apical ischemia): no angiographically significant CAD, LVEF 50%, LVEDP 14 mmHg PAF with RVR associated with hypotension. Had previously refused OAC and had agreed only to ASA S/p spinal fusion surgery and h/o post-op resp failure Echocardiogram of Jan 29, [address] Perez showed LVEF 55-65%; signs of RV strain with prssure and vol overload. Echo of 09/18/19: mild concentric LVH, LVEF 55-60%, mild AoV sclerosis w/o stenosis, PASP 35-40 mmHg Chronic pain: chronic migraine headaches, chronic body pains and fibromyalgia. History of perioperative bradycardia (asystole) and tachycardia (ventricular fibrillation). 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 Dr Saleem following and has diagnosed restrictive lung disease Bilateral intermittent leg swelling, chronic. Venous insuff study of 02/15/16 did not show DVT or reflux in the deep venous system or valvular insuff of greater or small saphenous system or AASV Less than 40% DANIELLE stenosis, 40-59% LICA stenosis on carotid u/s of 02/03/16. U/S of August 2018 showed less than 40% bilat ICA stenoses Plan: Complex management due to multiple comorbidities (see above) Continue anticoag We will reduce her ASA to 81mg every other day to reduce her risk of bleeding while on Eliquis Monitor lab Replace electrolytes as indicated YASMANI HAMILTON Feb 03, 2020 09:53
[2020-02-03] MEDS: ASPIRIN 81 MG CHEW (CHILDREN'S ASA) PO SCH (10:06)
[2020-02-03] MEDS: ADVAIR HFA 115/21 MCG INHALER 8 GM IH SCH ×2 (10:38→19:07)
--- NOTE | 2020-02-03 11:35 | Occupational Therapy Eval ---
OT Evaluation-General/PLF Medical Diagnosis Admission Date Jan 29, 2020 at 01:05 Medical Diagnosis: bilateral pulmonary emboli Onset Date: Jan 29, 2020 Therapy Diagnosis Therapy Diagnosis: Decreased ADL status/ debility Height/Weight Height (Feet): 5 Height (Inches): 4.00 Weight (Pounds): 215 Weight (Ounces): 0 Precautions Precautions/Isolations: Fall Prevention, Standard Precautions Referral Physician: Franklin Referral Reason: Activity Tolerance, Self Care, Evaluation/Treatment, Strengthening/ROM Medical History Pertinent Medical History: CAD, COPD, DM, Diverticulitis, GERD, RI, Neuropathy Additional Medical History CAD, COPD, DM, diverticulitis, GERD, RI, neuropathy (BLE), COVID 19 Dec 2019 Current History Pt post-COVID debility, decreased mobility Per notes, pt was bed bound 2 weeks due to weakness post-COVID admits to ER with SOB and BPE's Reviewed History: Yes Social History Home: Single Level Current Living Status: Spouse Entry Into Home: Stairs Without Railing ADL-Prior Level of Function SCALE: Activities may be completed with or without assistive devices. 2-Hyjqrsvgxy-ghtnaaz completes the activity by him/herself with no assistance from a helper. 5-Set-up or Clean-up Assistance-helper sets up or cleans up; patient completes activity. [place] assists only prior to or following the activity. 4-Supervision or Touching Assistance-helper provides verbal cues and/or touching/steadying and/or contact guard assistance as patient completes activity. Assistance may be provided throughout the activity or intermittently. 3-Partial/Moderate Assistance-helper does LESS THAN HALF the effort. [place] lifts, holds or supports trunk or limbs, but provides less than half the effort. 2-Substantial/Maximal Assistance-helper does MORE THAN HALF the effort. [place] lifts or holds trunk or limbs and provides more than half the effort. 3-Dvlutjxit-nvvgkc does ALL the effort. Patient does none of the effort to complete the activity. Or, the assistance of 2 or more helpers is required for the patient to complete the activity. If activity was not attempted, code reason: 7-Patient Refused. 9-Not Applicable-not attempted and the patient did not perform the activity before the current illness, exacerbation or injury. 10-Not Attempted due to Environmental Limitations-(lack of equipment, weather restraints, etc.). 88-Not Attempted due to Medical Conditions or Safety Concerns. ADL PLOF Comments Pt was IND with use of cane in-home/ in community. 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 Pt alert/ oriented. Pt denies pain originally, agrees to OT eval/ treat. Pt on NC (4L) Mental Status/Objective Patient Orientation: Person, Place, Situation, Normal For Age Attachments: Hopper Catheter, Oxygen (4-5L), Telemetry Current Glasses/Contacts: Yes Hearing Aids: No Dentures/Partials: No Hand Dominance: Right Upper Extremity ROM WFL BUE Upper Extremity Coordination WFL BUE Upper Extremity Sensation neuropathy BLE/ UE Upper Extremity Strength WFL BUE ADL-Treatment Eating (QC): 6 (per clinical judgment) Oral Hygiene (QC): 6 (per clinical judgment) Other Treatments Pt states she has been in chair for 1 hour and would like to get back to bed. Pt provides hx, states COVID dx though had difficulty breathing due to COPD prior to dx. Pt states a "slight cough", as though she aspirates when eating certain foods. 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 Noted: pt's sats drop to upper 70's when upright in chair and conversing; with cues, pt able to recover to mid-90's within seconds. This happens multiple times through conversation. Pt sit to stand from recliner with CGA. Pt stand and shifts weight with CGA and min A to lower self to bed. Pt sits EOB, SOB noted. Pt requests in bed, brought to supine with mod A due to urgency and HOB elevated to tolerable level. Pt's 02 sats decreased to mid 70's and unable to recover to 90's with increased time. Pt educated on diaphragmatic breathing and manual recoil applied to abdomen to encourage full exhale/ inhale. Pt continues in high 70's/ low 80's, brought to 5L rather than 4L NC and nursing notified. Pt is educated on continued OT for debility, pt agrees with all needs met. Education OT Patient Education: Correct positioning, Purpose of tx/functional activities, Safety issues, Transfer techniques Teaching Recipient: Patient Teaching Methods: Demonstration, Discussion Response to Teaching: Verbalize Understanding, Return Demonstration OT Brick Unloader Tender Goals Brick Unloader Tender Goals Time Frame: Feb 10, 2020 Eating (QC): 6 Oral Hygiene (QC): 6 Toileting Hygiene (QC): 4 Shower/Bathe Self (QC): 4 Upper Body Dressing (QC): 6 Lower Body Dressing (QC): 4 On/Off Footwear (QC): 6 Additional Goals: 1-Demonstrate ADL Tasks, 2-Verbalize Understanding, 3- ImproveStrength/Eileen 1=Demonstrate adherence to instructed precautions during ADL tasks. 2=Patient will verbalize/demonstrate understanding of assistive devices/modifications for ADL. 3=Patient will improve strength/tolerance for activity to enable patient to perform ADL's. OT Education/Plan Problem List/Assessment Assessment: Decreased Activ Tolerance, Dependent Transfers, Impaired Bed Mobility, Impaired Funct Balance, Impaired I ADL's, Impaired Self-Care Skills Discharge Recommendations Plan/Recommendations: Continue POC Therapy Discharge Recommendati: Assisted Living, Home & Family, Post Acute OT Treatment Plan/Plan of Care Treatment,Training & Education: Yes Patient would benefit from OT for education, treatment and training to promote independence in ADL's, mobility, safety and/or upper extremity function for ADL's. Plan of Care: ADL Retraining, Functional Mobility, UE Funct Exercise/Act, UE Neuromus Re-Ed/Coord Treatment Duration: Feb 10, 2020 Frequency: 5 times per week Estimated Hrs Per Day: .25 hour per day Rehab Potential: Fair Time/GCodes Start Time: 10:50 Stop Time: 11:13 Total Time Billed (hr/min): 23 Billed Treatment Time 1, PANDA [place] (23) KIMMY MONTESINOS OTR Feb 03, 2020 11:35
[2020-02-03 11:36] VITALS: BP_SYST 134; BP_SYST 145; BP_DIAS 100; BP_DIAS 75
--- NOTE | 2020-02-03 13:49 | Physical Therapy Daily Note ---
PT Daily Note-Current Subjective Pt. c/o she has been up a long time earlier today and is exhausted. Pt. coughing deep cough and c/o some SOB if HOB is lowered to allow pt. to push self up in bed. Agrees to exercises Pain Location: No Pain Reported Mental Status Patient Orientation: Normal For Age Transfers SCALE: Activities may be completed with or without assistive devices. 9-Dazcpelhrm-tzmlnsv completes the activity by him/herself with no assistance from a helper. 5-Set-up or Clean-up Assistance-helper sets up or cleans up; patient completes activity. [place] assists only prior to or following the activity. 4-Supervision or Touching Assistance-helper provides verbal cues and/or touching/steadying and/or contact guard assistance as patient completes activity. Assistance may be provided throughout the activity or intermittently. 3-Partial/Moderate Assistance-helper does LESS THAN HALF the effort. [place] lifts, holds or supports trunk or limbs, but provides less than half the effort. 2-Substantial/Maximal Assistance-helper does MORE THAN HALF the effort. [place] lifts or holds trunk or limbs and provides more than half the effort. 8-Fntmeznxm-gueqaq does ALL the effort. Patient does none of the effort to complete the activity. Or, the assistance of 2 or more helpers is required for the patient to complete the activity. If activity was not attempted, code reason: 7-Patient Refused. 9-Not Applicable-not attempted and the patient did not perform the activity before the current illness, exacerbation or injury. 10-Not Attempted due to Environmental Limitations-(lack of equipment, weather restraints, etc.). 88-Not Attempted due to Medical Conditions or Safety Concerns. rolling left and right and pushed self up in bed with instruction and bed near flat briefly Exercises Supine Ex: Bridging, Ankle pumps, Quad Set, Rolling, Glut sets, Heel Slides, Scooting, Hip abd/add Supine Reps: 10 (x2) Treatments pt. requested large tub of personal belongings be brought to her at edge of bed, pt. then rolled to side up on elbow and began to sort through tub indep Assessment Current Status: Fair Progress coughing and c/o fatigue PT Investigator Internal Affairs Goals Investigator Internal Affairs Goals PT Investigator Internal Affairs Goals Time Frame: Feb 08, 2020 Roll Left & Right (QC): 6 Sit to Lying (QC): 6 Lying-Sitting on Side/Bed(QC): 6 Sit to Stand (QC): 4 Chair/Rkd-gw-[place] Xfer(QC): 4 Walk 10 feet (QC): 4 PT Plan Treatment/Plan Treatment Plan: Continue Plan of Care Treatment Plan: Bed Mobility, Education, Functional Activity Eileen, Functional Strength, Gait, Safety, Therapeutic Exercise, Transfers Treatment Duration: Feb 08, 2020 Frequency: 6 times per week Estimated Hrs Per Day: .25 hour per day Patient and/or Family Agrees t: Yes Safety Risks/Education Patient Education: Transfer Techniques, Correct Positioning, Disease Process Teaching Recipient: Patient Teaching Methods: Demonstration, Discussion Response to Teaching: Verbalize Understanding, Return Demonstration, Reinforcement Needed Time/GCodes Time In: 1300 Time Out: 1325 Total Billed Treatment Time: 25 Total Billed Treatment 1,FA10,EX15m JANETH العلي MANAGER PURCHASING Feb 03, 2020 13:49
[2020-02-03] MEDS: fentaNYL INJECTION 100 MCG/2 ML AMP IV PRN (13:54)
--- NOTE | 2020-02-03 15:20 | NUR ---
report from frankie mcmahon at this time. this rn will assume care of this patient when she arrives to this unit.
[2020-02-03 16:00] VITALS: BP 152/82
--- NOTE | 2020-02-03 16:33 | NUR ---
CM/SS: Visited with pt as per follow up related to the phone call to pt's son Narseh on yesterday. Pt informed that this worker talked with son and let him know the pt's current status. He did not have any questions. Pt reports Dr Reid talked with her son that is in [place] this morning. Pt reports she is working on getting better and stronger. This worker will follow up.
[2020-02-03] MEDS: PRAMIPEXOLE 0.5 MG TAB (MIRAPEX) PO SCH (17:16)
--- NOTE | 2020-02-03 17:53 | Progress Note ---
Subjective Date Seen by a Provider: Feb 03, 2020 Time Seen by a Provider: 08:15 Subjective/Events-last exam Fwup acute respiratory distress, bilateral PE, paroxysmal atrial fibrillation, COPD. C/O MCCORMICK and chest pain. Still on vapotherm but not as short of air. Objective Exam Vital Signs Date Time Temp Pulse Resp B/P (MAP) Pulse Ox O2 Delivery O2 Flow Rate FiO2 02/03/20 16:00 35.8 72 20 152/82 (105) 93 02/03/20 12:36 81 02/03/20 11:36 70 24 145/100 (115) 97 Nasal Cannula 5.00 02/03/20 10:38 97 Nasal Cannula 4.00 02/03/20 10:38 Nasal Cannula 4.00 02/03/20 09:00 97 Nasal Cannula 5.00 02/03/20 08:45 97 Nasal Cannula 5.00 02/03/20 08:00 35.6 66 20 134/75 (94) 96 Vapotherm 10.00 25.00 02/03/20 06:47 71 02/03/20 04:57 95 Vapotherm 20.00 30 02/03/20 04:00 37.0 60 20 142/76 (98) 95 Vapotherm 20.00 40.00 02/03/20 02:17 96 Vapotherm 20.00 35 02/03/20 01:00 73 02/03/20 00:00 36.8 65 20 117/63 (81) 94 Vapotherm 20.00 40.00 02/02/20 23:37 95 Vapotherm 20.00 40 02/02/20 21:00 Vapotherm 20.00 40 02/02/20 20:00 36.6 77 20 121/61 (81) 93 Vapotherm 20.00 40.00 02/02/20 19:22 Vapotherm 20.00 40 02/02/20 19:22 91 Vapotherm 20.00 40 02/02/20 19:00 73 I & O 02/03/20 07:00 Intake Total 1395 ml Output Total 2100 ml Balance -705 ml Capillary Refill : Less Than 3 Seconds General Appearance: No Apparent Distress Neck: Supple Respiratory: Lungs Clear, Decreased Breath Sounds Cardiovascular: Regular Rate, Rhythm Gastrointestinal: normal bowel sounds, non tender, soft Extremity: Non Tender, No Calf Tenderness, No Pedal Edema Neurologic/Psychiatric: Alert, Oriented x3 Skin: Warm/Dry Results Lab Laboratory Tests 02/02/20 20:57: Glucometer 234H 02/03/20 05:45: Glucometer 240H 02/03/20 16:50: Glucometer 264H Microbiology 01/28/20 Urine Culture - Final, Complete YEAST 01/28/20 Blood Culture - Preliminary, Resulted No growth 01/28/20 Influenza Types A,B Antigen (YOLIE) - Final, Complete Assessment/Plan Assessment/Plan Assess & Plan/Chief Complaint 1. Acute Bilateral Pulmonary Emboli--switched to eliquis, dose of toradol and fentanyl for pain/MCCORMICK 2. Right superficial femoral vein thrombosis--on eliquis 3. History of PAF--cardiology consulted 4. Hypertension--stable 5. Post-COVID Pneumonia--on IV cefepime/vanc 6. COPD--on dexamethasone, oxygen and inhalers 7. Acute Respiratory Failure--still requiring vapotherm, transfer to [address] [place] [address] Clinical Quality Measures Admission Status Admission Dx 1. Acute Bilateral Pulmonary Emboli--admit to Cardiac with high dose lovenox, on oxygen via NC 2. Right superficial femoral vein thrombosis--lovenox and then will transition to oral anticoagulation when able 3. History of PAF--cardiology consulted 4. Hypertension--stable 5. Post-COVID Pneumonia--on IV cefepime/vanc 6. COPD--on dexamethasone, oxygen and inhalers DVT/VTE Risk/Contraindication: Risk Factor Score Per Nursin RFS Level Per Nursing on Admit: 4+=Very High NANNETTE REVELES DO Feb 03, 2020 17:53
--- NOTE | 2020-02-03 18:28 | Progress Note - Cardiology ---
Cardiology SOAP Progress Note Subjective: Shortness of breath and chest discomfort are improving Headache persists Weakness and malaise present No n/v/d Appetite better Generally feels somewhat better Objective: I&O/Vital Signs 02/03/20 02/03/20 02/03/20 02/03/20 06:47 08:00 08:45 09:00 Temp 35.6 Pulse 71 66 Resp 20 B/P (MAP) 134/75 (94) Pulse Ox 96 97 97 O2 Delivery Vapotherm Nasal Cannula Nasal Cannula O2 Flow Rate 10.00 5.00 5.00 25.00 02/03/20 02/03/20 02/03/20 02/03/20 10:38 10:38 11:36 12:36 Pulse 70 81 Resp 24 B/P (MAP) 145/100 (115) Pulse Ox 97 97 O2 Delivery Nasal Cannula Nasal Cannula Nasal Cannula O2 Flow Rate 4.00 4.00 5.00 02/03/20 16:00 Temp 35.8 Pulse 72 Resp 20 B/P (MAP) 152/82 (105) Pulse Ox 93 02/03/20 00:00 Intake Total 1295 ml Output Total 1900 ml Balance -605 ml Weight (Pounds): 215 Weight (Ounces): 0 Weight (Calculated Kilograms): 97.210472 Constitutional: AAO x 3, well-developed, well-nourished Respiratory: No accessory muscle use, No respiratory distress; chest expansion is symmetric, chest is bilaterally symmetric, other (diminished with poor inspiratory effort) Cardiovascular: regular rate-rhythm Gastrointestional: No tender; soft, round Extremities: no lower extremity edema bilateral Neurologic/Psychiatric: other (moves all limbs equally) Skin: No rash on exposed areas, No ulcerations on exposed areas Results/Procedures: Labs Laboratory Tests 02/02/20 20:57: Glucometer 234H 02/03/20 05:45: Glucometer 240H 02/03/20 16:50: Glucometer 264H Microbiology 01/28/20 Urine Culture - Final, Complete YEAST 01/28/20 Blood Culture - Preliminary, Resulted No growth 01/28/20 Influenza Types A,B Antigen (YOLIE) - Final, Complete A/P: Assessment: Bilateral central, segmental and subsegmental pulmonary emboli. Evidence of right heart strain. Nonspecific bilateral groundglass opacities and dependent consolidation in the lungs likely due to combination of the reported COVID diagnosis and atelectasis. Per CTA of the chest on 01-28-2020 Chest pain, patient is reporting chest heaviness, likely secondary to pulmonary embolism Acute respiratory insufficiency, bilateral pulmonary embolism. Started on high-dose Eliquis, maintained on Vapotherm. Last cath on 09/22/19 (following MPI of 09/15/19 that showed apical ischemia): no angiographically significant CAD, LVEF 50%, LVEDP 14 mmHg PAF with RVR associated with hypotension. Had previously refused OAC and had agreed only to ASA S/p spinal fusion surgery and h/o post-op resp failure Echocardiogram of Jan 29, [address] Perez showed LVEF 55-65%; signs of RV strain with prssure and vol overload. Echo of 09/18/19: mild concentric LVH, LVEF 55-60%, mild AoV sclerosis w/o stenosis, PASP 35-40 mmHg Chronic pain: chronic migraine headaches, chronic body pains and fibromyalgia. History of perioperative bradycardia (asystole) and tachycardia (ventricular fibrillation). 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 Dr Saleem following and has diagnosed restrictive lung disease Bilateral intermittent leg swelling, chronic. Venous insuff study of 02/15/16 did not show DVT or reflux in the deep venous system or valvular insuff of greater or small saphenous system or AASV Less than 40% DANIELLE stenosis, 40-59% LICA stenosis on carotid u/s of 02/03/16. U/S of August 2018 showed less than 40% bilat ICA stenoses Plan: Complex management due to multiple comorbidities (see above) Continue anticoag We will reduce her ASA to 81mg every other day to reduce her risk of bleeding while on Eliquis Monitor lab Replace electrolytes as indicated ULI YOO MD FACP [facility] Feb 03, 2020 18:27
[2020-02-03 20:00] VITALS: BP 138/70
[2020-02-03] MEDS: MELATONIN 10 MG TABLET PO SCH (21:20)
[2020-02-03] MEDS: MONTELUKAST 10 MG (SINGULAIR) TAB PO SCH (21:20)
[2020-02-04] VITALS (7 sets, daily range): BP systolic 121–151; BP diastolic 63–72
[2020-02-04] MEDS: fentaNYL INJECTION 100 MCG/2 ML AMP IV PRN (01:12)
[2020-02-04] MEDS: RT-ALBUTEROL/IPRATROPIUM 3 ML (DUONEB) VIAL INH SCH ×5 (06:50→22:00)
[2020-02-04] MEDS: ADVAIR HFA 115/21 MCG INHALER 8 GM IH SCH ×2 (06:54→22:03)
[2020-02-04] MEDS: inSUlin ASPART (NovoLOG) 1 UNIT/0.01 ML (CHARGE PER UNIT) SC SCH ×4 (07:55→21:14)
--- NOTE | 2020-02-04 09:54 | Progress Note - Cardiology ---
Cardiology SOAP Progress Note Subjective: Lying in bed. Had shower this morning. C/O gen fatigue. No c/o CP or palpitations. SOB unchanged Objective: I&O/Vital Signs 02/04/20 02/04/20 02/04/20 02/04/20 21:39 22:00 22:03 23:03 Temp 36.9 Pulse 60 Pulse Ox 95 95 95 O2 Delivery Nasal Cannula Nasal Cannula Nasal Cannula O2 Flow Rate 4.00 3.00 3.00 02/04/20 02/05/20 02/05/20 02/05/20 23:18 01:00 04:10 05:10 Temp 36.1 36.9 Pulse 67 69 60 Resp 20 22 B/P (MAP) 126/63 (84) 160/90 (113) Pulse Ox 96 94 O2 Delivery Nasal Cannula Nasal Cannula Nasal Cannula O2 Flow Rate 3.00 3.00 3.00 02/05/20 02/05/20 07:10 07:30 Temp 36.6 Pulse 75 Resp 20 B/P (MAP) 140/70 (93) Pulse Ox 94 94 O2 Delivery Nasal Cannula Nasal Cannula O2 Flow Rate 3.00 3.00 02/05/20 00:00 Intake Total 2560 ml Output Total 2950 ml Balance -390 ml Weight (Pounds): 215 Weight (Ounces): 0 Weight (Calculated Kilograms): 97.036544 Constitutional: AAO x 3, well-developed, well-nourished Respiratory: No accessory muscle use, No respiratory distress; chest expansion is symmetric, chest is bilaterally symmetric, other (diminished with poor inspiratory effort) Cardiovascular: regular rate-rhythm Gastrointestional: No tender; soft, round Extremities: no lower extremity edema bilateral Neurologic/Psychiatric: other (moves all limbs equally) Skin: No rash on exposed areas, No ulcerations on exposed areas Results/Procedures: Labs Laboratory Tests 02/04/20 11:13: Glucometer 149H 02/04/20 16:09: Glucometer 288H 02/04/20 20:55: Glucometer 206H 02/05/20 05:01: Glucometer 159H Microbiology 01/28/20 Urine Culture - Final, Complete YEAST 01/28/20 Blood Culture - Final, Complete No growth 01/28/20 Influenza Types A,B Antigen (YOLIE) - Final, Complete A/P: Assessment: Bilateral central, segmental and subsegmental pulmonary emboli. Evidence of right heart strain. Nonspecific bilateral groundglass opacities and dependent consolidation in the lungs likely due to combination of the reported COVID diagnosis and atelectasis. Per CTA of the chest on 01-28-2020 Chest pain, patient is reporting chest heaviness, likely secondary to pulmonary embolism Acute respiratory insufficiency, bilateral pulmonary embolism. Started on high- dose Eliquis, maintained on Vapotherm. Last cath on 09/22/19 (following MPI of 09/15/19 that showed apical ischemia): no angiographically significant CAD, LVEF 50%, LVEDP 14 mmHg PAF with RVR associated with hypotension. Had previously refused OAC and had agreed only to ASA S/p spinal fusion surgery and h/o post-op resp failure Echocardiogram of Jan 29, [address] Perez showed LVEF 55-65%; signs of RV strain with prssure and vol overload. Echo of 09/18/19: mild concentric LVH, LVEF 55-60%, mild AoV sclerosis w/o stenosis, PASP 35-40 mmHg Chronic pain: chronic migraine headaches, chronic body pains and fibromyalgia. History of perioperative bradycardia (asystole) and tachycardia (ventricular fibrillation). 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 Dr Saleem following and has diagnosed restrictive lung disease Bilateral intermittent leg swelling, chronic. Venous insuff study of 02/15/16 did not show DVT or reflux in the deep venous system or valvular insuff of greater or small saphenous system or AASV Less than 40% DANIELLE stenosis, 40-59% LICA stenosis on carotid u/s of 02/03/16. U/S of August 2018 showed less than 40% bilat ICA stenoses Plan: Complex management due to multiple comorbidities (see above) Continue anticoag Monitor lab Replace electrolytes as indicated YASMANI HAMILTON Feb 04, 2020 09:54
[2020-02-04] MEDS: VITAMIN D3 25 MCG (1,000 UNITS) TABLET PO SCH (10:15)
[2020-02-04] MEDS: APIXABAN 5 MG (ELIQUIS) TABLET PO SCH ×2 (10:16→20:48)
[2020-02-04] MEDS: BACLOFEN 10 MG (LIORESAL) TAB PO SCH ×2 (10:17→20:47)
[2020-02-04] MEDS: ASCORBIC ACID (VIT C) 500 MG TABLET PO SCH (10:17)
[2020-02-04] MEDS: PANTOPRAZOLE 40 MG (PROTONIX) TAB PO SCH ×2 (10:18→20:47)
[2020-02-04] MEDS: fluCOnazole (DIFLUCAN) 100 MG TAB PO SCH (10:18)
[2020-02-04] MEDS: NYSTATIN CREAM (MYCOSTATIN) 30 GM TUBE TP SCH ×3 (10:20→20:49)
[2020-02-04] MEDS: inSUlin NPH (NovoLIN N) 1 UNIT/0.01 ML (CHARGE PER UNIT) SQ SCH ×2 (10:24→21:14)
--- NOTE | 2020-02-04 10:28 | Occupational Ther Daily Note ---
OT Current Status-Daily Note Subjective Pt alert/ oriented. Pt agrees to tx, though states is worn out. Pt states already took shower, though only dried/ brushed hair. Mental Status/Objective Patient Orientation: Person, Place, Situation, Normal For Age Attachments: Hopper Catheter, Oxygen, SCD's ADL-Treatment Therapy Code Descriptions/Definitions Functional [place] Measure: 0=Not Assessed/NA 4=Minimal Assistance 1=Total Assistance 5=Supervision or Setup 2=Maximal Assistance 6=Modified [place] 3=Moderate Assistance 7=Complete IndependenceSCALE: Activities may be completed with or without assistive devices. 5-Pxpclfayxf-tvzmavi completes the activity by him/herself with no assistance from a helper. 5-Set-up or Clean-up Assistance-helper sets up or cleans up; patient completes activity. [place] assists only prior to or following the activity. 4-Supervision or Touching Assistance-helper provides verbal cues and/or touching/steadying and/or contact guard assistance as patient completes activity. Assistance may be provided throughout the activity or intermittently. 3-Partial/Moderate Assistance-helper does LESS THAN HALF the effort. [place] lifts, holds or supports trunk or limbs, but provides less than half the effort. 2-Substantial/Maximal Assistance-helper does MORE THAN HALF the effort. [place] l ifts or holds trunk or limbs and provides more than half the effort. 9-Goskizhwh-bzgqpl does ALL the effort. Patient does none of the effort to complete the activity. Or, the assistance of 2 or more helpers is required for the patient to complete the activity. If activity was not attempted, code reason: 7-Patient Refused. 9-Not Applicable-not attempted and the patient did not perform the activity before the current illness, exacerbation or injury. 10-Not Attempted due to Environmental Limitations-(lack of equipment, weather restraints, etc.). 88-Not Attempted due to Medical Conditions or Safety Concerns. Eating (QC): 6 Shower/Bathe Self (QC): 2 (max A per pt due to fatigue.) Upper Body Dressing (QC): 5 (s/u gown donning.) Other Treatment Pt hesitantly agrees to exercises EOB as pt has already completed ADL tasks and is fatigued. Reaches EOB with SBA. Pt is given theraband and educated on UE ther ex, completing 10 reps bilaterally of the following exercises: horizontal abduction, triceps, bicep curls. Pt converses throughout exercise, no SOB noted during this session. Pt is educated to complete these exercises 2 additional times today. Pt denies any questions. Returns to bed with SBA, SCD's re-donned, all needs met, call light in reach, pt left with nursing in room. Education OT Patient Education: Exercise program, Home exercise program, Purpose of tx/functional activities Teaching Recipient: Patient Teaching Methods: Demonstration, Discussion Response to Teaching: Verbalize Understanding, Return Demonstration OT Long-Term Goals Long-Term Goals Time Frame: Feb 10, 2020 Eating (QC): 6 Oral Hygiene (QC): 6 Toileting Hygiene (QC): 4 Shower/Bathe Self (QC): 4 Upper Body Dressing (QC): 6 Lower Body Dressing (QC): 4 On/Off Footwear (QC): 6 Additional Goals: 1-Demonstrate ADL Tasks, 2-Verbalize Understanding, 3- ImproveStrength/Eileen 1=Demonstrate adherence to instructed precautions during ADL tasks. 2=Patient will verbalize/demonstrate understanding of assistive devices/modifications for ADL. 3=Patient will improve strength/tolerance for activity to enable patient to perform ADL's. OT Education/Plan Problem List/Assessment Assessment: Decreased Activ Tolerance, Decreased UE Strength, Dependent Tr ansfers, Impaired Funct Balance, Impaired I ADL's, Impaired Self-Care Skills Discharge Recommendations Plan/Recommendations: Continue POC Therapy Discharge Recommendati: Post Acute OT Treatment Plan/Plan of Care Treatment,Training & Education: Yes Patient would benefit from OT for education, treatment and training to promote independence in ADL's, mobility, safety and/or upper extremity function for ADL's. Plan of Care: ADL Retraining, Functional Mobility, UE Funct Exercise/Act, UE Neuromus Re-Ed/Coord Treatment Duration: Feb 10, 2020 Frequency: 5 times per week Estimated Hrs Per Day: .25 hour per day Rehab Potential: Fair Time/GCodes Start Time: 10:08 Stop Time: 10:20 Total Time Billed (hr/min): 12 Billed Treatment Time 1, EX (12) KIMMY MONTESINOS OTR Feb 04, 2020 10:28
--- NOTE | 2020-02-04 10:30 | NUR ---
HL RT FA INFILTRATED AND REMOVED.
--- NOTE | 2020-02-04 10:37 | Physical Therapy Daily Note ---
PT Daily Note-Current Subjective Patient agrees to PT. Mental Status Patient Orientation: Normal For Age Attachments: Oxygen, Hopper Catheter Transfers SCALE: Activities may be completed with or without assistive devices. 8-Ypmztcllmf-errtrds completes the activity by him/herself with no assistance from a helper. 5-Set-up or Clean-up Assistance-helper sets up or cleans up; patient completes activity. [place] assists only prior to or following the activity. 4-Supervision or Touching Assistance-helper provides verbal cues and/or touching/steadying and/or contact guard assistance as patient completes activity. Assistance may be provided throughout the activity or intermittently. 3-Partial/Moderate Assistance-helper does LESS THAN HALF the effort. [place] l ifts, holds or supports trunk or limbs, but provides less than half the effort. 2-Substantial/Maximal Assistance-helper does MORE THAN HALF the effort. [place] lifts or holds trunk or limbs and provides more than half the effort. 4-Umhffrbte-ktiaka does ALL the effort. Patient does none of the effort to complete the activity. Or, the assistance of 2 or more helpers is required for t he patient to complete the activity. If activity was not attempted, code reason: 7-Patient Refused. 9-Not Applicable-not attempted and the patient did not perform the activity before the current illness, exacerbation or injury. 10-Not Attempted due to Environmental Limitations-(lack of equipment, weather restraints, etc.). 88-Not Attempted due to Medical Conditions or Safety Concerns. Sit to Lying (QC): 6 Lying to Sitting/Side of Bed(Q: 6 Sit to Stand (QC): 4 Gait Training Does the Patient Walk?: Yes Distance: 25' Walk 10 feet (QC): 3 Gait Assistive Device: FWW very slow, steady gait sequence Exercises Supine Ex: Ankle pumps, Quad Set, Heel Slides, Straight leg raise Supine Reps: 15 Seated Therapy Exercises: Ankle pumps, Long arc quads Seated Reps: 15 Assessment Patient is very slow and methodical but completes task. PT to increase activity as tolerated by patient. PT Shelter Goals Shelter Goals PT Shelter Goals Time Frame: Feb 08, 2020 Roll Left & Right (QC): 6 Sit to Lying (QC): 6 Lying-Sitting on Side/Bed(QC): 6 Sit to Stand (QC): 4 Chair/Xwl-sr-Gkswb Xfer(QC): 4 Walk 10 feet (QC): 4 PT Plan Treatment/Plan Treatment Plan: Continue Plan of Care Treatment Plan: Bed Mobility, Education, Functional Activity Eileen, Functional Strength, Gait, Safety, Therapeutic Exercise, Transfers Treatment Duration: Feb 08, 2020 Frequency: 6 times per week Estimated Hrs Per Day: .25 hour per day Patient and/or Family Agrees t: Yes Time/GCodes Time In: 941 Time Out: 1004 Total Billed Treatment Time: 23 Total Billed Treatment 1 visit EX 15 min GT 8 min IRENE NEGRO PT Feb 04, 2020 10:37
--- NOTE | 2020-02-04 15:37 | NUR ---
CM/SS: Visited with pt as to her being accepted to [facility] and her being able to go there on tomorrow. Plan: Pt to go to [facility] for skilled stay on tomorrow. Summary: Pt is in bed at the time of the visit. Pt is informed that she will be able to go to [facility] on tomorrow. The time to be determined. Pt is ok with that and reports she has made a list for her sister to picker packer some items from her home. Pt reports that she has been doing some shopping on [employer] today. Pt's mood is good and she asked this worker to call her son Naresh and let him know she will be going to the facility on tomorrow. This worker will call her son to inform him of pt going to [facility]. Telephone call to Naresh - [phone], son of pt. Left message that pt would be leaving tomorrow to go to the skilled facility at [facility]. Also that pt has her cell phone if he wanted to call her. Also if he had questions he could call this worker.
[2020-02-04] MEDS: PRAMIPEXOLE 0.5 MG TAB (MIRAPEX) PO SCH (16:21)
--- NOTE | 2020-02-04 16:53 | NUR ---
I HAVE REVIEWED CHARTING OF HARPREET RN PRECEPTOR AND AGREE WITH DOCUMENTATION.
--- NOTE | 2020-02-04 17:40 | Progress Note - Cardiology ---
Cardiology SOAP Progress Note Subjective: Chest discomfort and shortness of breath continue to improve Headache persistent Gen malaise present No palp or syncope or swelling No n/v/d Objective: I&O/Vital Signs 02/04/20 02/04/20 02/04/20 02/04/20 06:34 06:50 06:50 08:00 Temp 35.9 Pulse 60 72 Resp 20 B/P (MAP) 151/67 (95) Pulse Ox 95 95 O2 Delivery Nasal Cannula Nasal Cannula O2 Flow Rate 3.00 4.00 02/04/20 02/04/20 02/04/20 02/04/20 09:00 12:00 14:57 15:49 Temp 36.3 36.4 Pulse 70 74 Resp 16 18 B/P (MAP) 121/68 (85) 131/63 (85) Pulse Ox 93 93 92 94 O2 Delivery Nasal Cannula Nasal Cannula Nasal Cannula Nasal Cannula O2 Flow Rate 4.00 3.00 3.00 3.00 02/04/20 00:00 Intake Total 1120 ml Output Total 775 ml Balance 345 ml Weight (Pounds): 215 Weight (Ounces): 0 Weight (Calculated Kilograms): [id number] Constitutional: AAO x 3, well-developed, well-nourished Respiratory: No accessory muscle use, No respiratory distress; chest expansion is symmetric, chest is bilaterally symmetric, other (diminished with poor inspiratory effort) Cardiovascular: regular rate-rhythm Gastrointestional: No tender; soft, round Extremities: no lower extremity edema bilateral Neurologic/Psychiatric: other (moves all limbs equally) Skin: No rash on exposed areas, No ulcerations on exposed areas Results/Procedures: Labs Laboratory Tests 02/03/20 20:46: Glucometer 212H 02/04/20 05:09: Glucometer 152H 02/04/20 11:13: Glucometer 149H 02/04/20 16:09: Glucometer 288H Microbiology 01/28/20 Urine Culture - Final, Complete YEAST 01/28/20 Blood Culture - Final, Complete No growth 01/28/20 Influenza Types A,B Antigen (YOLIE) - Final, Complete A/P: Assessment: Bilateral central, segmental and subsegmental pulmonary emboli. Evidence of right heart strain. Nonspecific bilateral groundglass opacities and dependent consolidation in the lungs likely due to combination of the reported COVID diagnosis and atelectasis. Per CTA of the chest on 01-28-2020 Chest pain, patient is reporting chest heaviness, likely secondary to pulmonary embolism Acute respiratory insufficiency, bilateral pulmonary embolism. Started on high- dose Eliquis, maintained on Vapotherm. Last cath on 09/22/19 (following MPI of 09/15/19 that showed apical ischemia): no angiographically significant CAD, LVEF 50%, LVEDP 14 mmHg PAF with RVR associated with hypotension. Had previously refused OAC and had agreed only to ASA S/p spinal fusion surgery and h/o post-op resp failure Echocardiogram of Jan 29, [address] Perez showed LVEF 55-65%; signs of RV strain with prssure and vol overload. Echo of 09/18/19: mild concentric LVH, LVEF 55-60%, mild AoV sclerosis w/o stenosis, PASP 35-40 mmHg Chronic pain: chronic migraine headaches, chronic body pains and fibromyalgia. History of perioperative bradycardia (asystole) and tachycardia (ventricular fibrillation). 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 DM II, insulin requiring, managed by [facility] flume maker Chronic cough of undetermined etiology. Dr Saleem following and has diagnosed restrictive lung disease Bilateral intermittent leg swelling, chronic. Venous insuff study of 02/15/16 did not show DVT or reflux in the deep venous system or valvular insuff of greater or small saphenous system or AASV Less than 40% DANIELLE stenosis, 40-59% LICA stenosis on carotid u/s of 02/03/16. U/S of August 2018 showed less than 40% bilat ICA stenoses Plan: Complex management due to multiple comorbidities (see above) Continue anticoag Monitor lab Replace electrolytes as indicated ULI YOO MD FACP [facility] CCDS Feb 04, 2020 17:40
--- NOTE | 2020-02-04 18:10 | NUR ---
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 She said her christianity is in [place], [place]. The patient anticipates discharge to [facility] tomorrow for physical therapy, stating she has weakness in her legs. Histologic Aide provided active listening and engaged in rapport building while encouraging sharing of her claudio and spiritual experiences. She welcomed prayer and expressed hopes of meeting again. Patient described feeling encouraged following visit.
--- NOTE | 2020-02-04 19:09 | Progress Note ---
Subjective Date Seen by a Provider: Feb 04, 2020 Time Seen by a Provider: 12:30 Subjective/Events-last exam Fwup acute respiratory distress, bilateral PE, paroxysmal atrial fibrillation, COPD. C/O MCCORMICK and chest pain. Down to NC. Objective Exam Vital Signs Date Time Temp Pulse Resp B/P (MAP) Pulse Ox O2 Delivery O2 Flow Rate FiO2 02/04/20 18:50 93 Nasal Cannula 3.00 02/04/20 15:49 36.4 74 18 131/63 (85) 94 Nasal Cannula 3.00 02/04/20 14:57 92 Nasal Cannula 3.00 02/04/20 12:00 36.3 70 16 121/68 (85) 93 Nasal Cannula 3.00 02/04/20 09:00 93 Nasal Cannula 4.00 02/04/20 08:00 35.9 72 20 151/67 (95) 95 02/04/20 06:50 95 Nasal Cannula 4.00 02/04/20 06:50 Nasal Cannula 3.00 02/04/20 06:34 60 02/04/20 02:18 97 Nasal Cannula 4.00 02/04/20 00:44 36.2 63 20 144/72 (96) 99 Nasal Cannula 6.00 02/03/20 22:13 98 Nasal Cannula 6.00 02/03/20 21:00 Nasal Cannula 7.00 02/03/20 20:00 35.9 87 20 138/70 (92) 97 Nasal Cannula 4.00 I & O0 02/04/20 07:00 Intake Total 1120 ml Output Total 775 ml Balance 345 ml Capillary Refill : Less Than 3 Seconds General Appearance: No Apparent Distress Respiratory: Lungs Clear, Decreased Breath Sounds Cardiovascular: Regular Rate, Rhythm Gastrointestinal: normal bowel sounds, non tender, soft Extremity: Non Tender, No Calf Tenderness, No Pedal Edema Neurologic/Psychiatric: Alert, Oriented x3 Results Lab Laboratory Tests 02/03/20 20:46: Glucometer 212H 02/04/20 05:09: Glucometer 152H 02/04/20 11:13: Glucometer 149H 02/04/20 16:09: Glucometer 288H Microbiology 01/28/20 Urine Culture - Final, Complete YEAST 01/28/20 Blood Culture - Final, Complete No growth 01/28/20 Influenza Types A,B Antigen (YOLIE) - Final, Complete Assessment/Plan Assessment/Plan Assess & Plan/Chief Complaint 1. Acute Bilateral Pulmonary Emboli--switched to eliquis, repeat dose of torado l and fentanyl for pain/MCCORMICK 2. Right superficial femoral vein thrombosis--on eliquis 3. History of PAF--cardiology consulted 4. Hypertension--stable 5. Post-COVID Pneumonia--on IV cefepime/vanc 6. COPD--on dexamethasone, oxygen and inhalers 7. Acute Respiratory Failure--has been weaned down to NC, plan on DC to SNF tomorrow Clinical Quality Measures Admission Status Admission Dx 1. Acute Bilateral Pulmonary Emboli--admit to Cardiac with high dose lovenox, o n oxygen via NC 2. Right superficial femoral vein thrombosis--lovenox and then will transition to oral anticoagulation when able 3. History of PAF--cardiology consulted 4. Hypertension--stable 5. Post-COVID Pneumonia--on IV cefepime/vanc 6. COPD--on dexamethasone, oxygen and inhalers DVT/VTE Risk/Contraindication: Risk Factor Score Per Nursin RFS Level Per Nursing on Admit: 4+=Very High NANNETTE REVELES DO Feb 04, 2020 19:09
[2020-02-04] MEDS ORDERED: KETOROLAC 15 MG/ML VIAL IVP NR (19:15)
[2020-02-04] MEDS ORDERED: fentaNYL INJECTION 100 MCG/2 ML AMP IVP NR (19:15)
[2020-02-04] MEDS: MONTELUKAST 10 MG (SINGULAIR) TAB PO SCH (20:47)
[2020-02-04] MEDS: MELATONIN 10 MG TABLET PO SCH (20:47)
[2020-02-04] MEDS ORDERED: RT-ALBUTEROL/IPRATROPIUM 3 ML (DUONEB) VIAL INH PRN (23:30)
[2020-02-05 04:10] VITALS: BP 160/90
[2020-02-05] MEDS: inSUlin ASPART (NovoLOG) 1 UNIT/0.01 ML (CHARGE PER UNIT) SC SCH ×2 (06:03→10:48)
[2020-02-05] MEDS ORDERED: RT-ALBUTEROL/IPRATROPIUM 3 ML (DUONEB) VIAL INH SCH (07:00)
[2020-02-05] MEDS: ADVAIR HFA 115/21 MCG INHALER 8 GM IH SCH (07:09)
[2020-02-05 07:30] VITALS: BP 140/70
[2020-02-05] MEDS: BACLOFEN 10 MG (LIORESAL) TAB PO SCH (08:27)
[2020-02-05] MEDS: PANTOPRAZOLE 40 MG (PROTONIX) TAB PO SCH (08:27)
[2020-02-05] MEDS: VITAMIN D3 25 MCG (1,000 UNITS) TABLET PO SCH (08:27)
[2020-02-05] MEDS: APIXABAN 5 MG (ELIQUIS) TABLET PO SCH (08:27)
[2020-02-05] MEDS: fluCOnazole (DIFLUCAN) 100 MG TAB PO SCH (08:27)
[2020-02-05] MEDS: NYSTATIN CREAM (MYCOSTATIN) 30 GM TUBE TP SCH (08:28)
[2020-02-05] MEDS: ASCORBIC ACID (VIT C) 500 MG TABLET PO SCH (08:28)
[2020-02-05] MEDS: inSUlin NPH (NovoLIN N) 1 UNIT/0.01 ML (CHARGE PER UNIT) SQ SCH (08:28)
[2020-02-05] MEDS ORDERED: ASPIRIN 81 MG CHEW (CHILDREN'S ASA) PO SCH (09:00)
[2020-02-05] MEDS ORDERED: DULA1.5P2 SQ (09:46)
[2020-02-05] MEDS ORDERED: DOXY100C2 PO (09:46)
[2020-02-05] MEDS ORDERED: FLUT12AE4 IH (09:46)
[2020-02-05] MEDS ORDERED: ASPI-999 PO (09:46)
[2020-02-05] MEDS ORDERED: ACET-93 PO (09:46)
[2020-02-05] MEDS ORDERED: NPH,100V SQ (09:46)
[2020-02-05] MEDS ORDERED: NYST15CR TP (09:46)
[2020-02-05] MEDS ORDERED: TRAM100T40 PO (09:46)
[2020-02-05] MEDS ORDERED: FLUC100T6 PO (09:46)
[2020-02-05] MEDS ORDERED: RT-ALBUINH IH (09:48)
--- NOTE | 2020-02-05 09:51 | Discharge Inst-Skilled Nursing ---
Discharge Inst-Skilled NF Reconcile Patient Problems Problems Reviewed?: Yes Patient Instructions Patient Problems: Bilateral Pulmonary Emboli COPD Weakness/Disuse Myopathy Diabetes mellitus--insulin requiring Hypertension History of atrial fibrillation Migraine Goal: Get stronger to go home Consult/Follow Up/Orders Follow Up Appt.: 2 weeks Skilled NF Admit to: Via [facility] ([facility]) I certify that SNF services are required to be given on an inpatient basis because of the above named patient's need for penitentiary care on a continuing basis for the conditions(s) for which he/she was receiving inpatient hospital services prior to his/her transfer to the [facility]. Intermediate Facility Order: Nursing Services, Wastewater Process Engineer-Evaluate & Treat, Physical Therapy-Evaluate & Treat Oxygen Delivery Method: Nasal Cannula (at 3L NC) Discharge Diet: Low Sodium Diet, ADA Diet Daily Activity as Tolerated: Yes Resuscitation Status: Full Code New & Resume Previous Orders Other Instructions Accuchecks BID CBC, CMP in 1 week Oxygen at 3L via NC continuous Belia Reid Feb 05, 2020 09:48 BELIA REID DO Feb 05, 2020 09:51
[2020-02-05] MEDS: ASPIRIN 81 MG CHEW (CHILDREN'S ASA) PO SCH (10:21)
--- NOTE | 2020-02-05 10:29 | NUR ---
SPARKS, TELEMETRY, AND IV REMOVED. AWAITING [facility] TRANSPORT FOR DISCHARGE
--- NOTE | 2020-02-05 10:50 | NUR ---
ATTEMPTED TO CALL REPORT TO [facility] X [facility], BUT RECEIVED MESSAGE THAT DESK WAS UNATTENDED. MY PHONE NUMBER WRITTEN ON PT DC PACKET FOR NURSE TO CALL ME FOR REPORT WHEN PT ARRIVES.
--- NOTE | 2020-02-05 10:53 | NUR ---
PT VOIDED WITH PHYSICAL THERAPY X 1 SINCE SPARKS REMOVED.
[2020-02-05 11:30] VITALS: BP 151/81
--- NOTE | 2020-02-05 11:39 | Physical Therapy Daily Note ---
PT Daily Note-Current Subjective Pt denies pain but says "My feet are numb but they hurt if that makes sense". Pt agreeable to treatment. Mental Status Patient Orientation: Person, Place, Situation Transfers SCALE: Activities may be completed with or without assistive devices. 5-Pmcuakuvlr-ccgxykl completes the activity by him/herself with no assistance from a helper. 5-Set-up or Clean-up Assistance-helper sets up or cleans up; patient completes activity. [place] assists only prior to or following the activity. 4-Supervision or Touching Assistance-helper provides verbal cues and/or touching/steadying and/or contact guard assistance as patient completes activity. Assistance may be provided throughout the activity or intermittently. 3-Partial/Moderate Assistance-helper does LESS THAN HALF the effort. [place] lifts, holds or supports trunk or limbs, but provides less than half the effort. 2-Substantial/Maximal Assistance-helper does MORE THAN HALF the effort. [place] lifts or holds trunk or limbs and provides more than half the effort. 3-Tbrhycycy-btfcjq does ALL the effort. Patient does none of the effort to complete the activity. Or, the assistance of 2 or more helpers is required for the patient to complete the activity. If activity was not attempted, code reason: 7-Patient Refused. 9-Not Applicable-not attempted and the patient did not perform the activity before the current illness, exacerbation or injury. 10-Not Attempted due to Environmental Limitations-(lack of equipment, weather restraints, etc.). 88-Not Attempted due to Medical Conditions or Safety Concerns. Gait Training Gait Assistive Device: FWW Pt amb with FWW in room, x 25-30ft with CGA. O2 per nasal canula. Exercises Seated Therapy Exercises: Ankle pumps, Long arc quads Seated Reps: 20 Treatments During treatment session her new FWW was delivered. FWW was fitted to pt. Pt practiced ambulation with her FWW x 10', CGA. Assessment Current Status: Fair Progress Pt SOB with exertion but able to remain in standing position to recover as needed. Pt functional mobility is very slow. No LOB or unsteadiness during treatment. Appeared to be aware of Oxygen tubing during turns and gait training. Pt resting in bed with call light and all needs met. O2 insitu. PT Senior Living Goals Laborer Electroplating Goals PT Senior Living Goals Time Frame: Feb 08, 2020 Roll Left & Right (QC): 6 Sit to Lying (QC): 6 Lying-Sitting on Side/Bed(QC): 6 Sit to Stand (QC): 4 Chair/Sar-zd-Sbxrv Xfer(QC): 4 Walk 10 feet (QC): 4 PT Plan Treatment/Plan Treatment Plan: Continue Plan of Care Treatment Plan: Bed Mobility, Education, Functional Activity Eileen, Functional Strength, Gait, Safety, Therapeutic Exercise, Transfers Treatment Duration: Feb 08, 2020 Frequency: 6 times per week Estimated Hrs Per Day: .25 hour per day Patient and/or Family Agrees t: Yes Time/GCodes Time In: 830 Time Out: 900 Total Billed Treatment Time: 30 Total Billed Treatment 1, 15' ther ex, 15' gait CHANDNI ESPINOZA CPTA Feb 05, 2020 11:39
--- NOTE | 2020-02-05 11:56 | NUR ---
DC'D PER WC TO [facility]. STILL UNABLE TO REACH STAFF TO GIVE REPORT. 3RD ATTEMPT.
--- NOTE | 2020-02-05 12:30 | NUR ---
CM/SS: Visited with pt as to her leaving today to go to [facility]. She is aware that she will be leaving around 11:15am. Pt has some anxiety about new people and her normal routine. Pt is encouraged to get there and get stronger so she can get back home. Pt seems eager to do so. Pt thanks this worker for her help during her hospital stay. Pt is wished well.
--- NOTE | 2020-02-05 13:00 | Discharge Summary ---
Diagnosis/Chief Complaint Date of Admission Jan 29, 2020 at 01:05 Date of Discharge Feb 05, 2020 at 11:59 Discharge Date: Feb 05, 2020 Discharge Diagnosis 1. Acute Bilateral Pulmonary Emboli--on oral eliquis 2. Right superficial femoral vein thrombosis--on eliquis 3. History of PAF--NSR in hospital 4. Hypertension--stable 5. Post-COVID Pneumonia--completed abx, CXR improved 6. COPD--stable on inhalers 7. Acute Respiratory Failure--DC to NH on O2 at 3L NC 8. Weakness/Disuse Myopathy--to SNF for OT/PT 9. Migraine--chronic with recent exacerbation Reason Hospital Visit This is a 74 year old female with a history of paroxysmal atrial fibrillation as well as COVID-19 diagnosed in December. She has had several emergency room visits since her COVID diagnosis as well as at least 2 telemed visits with me. She had continued to report fever but has been afebrile in the ER and has been afebrile since admit. I had stress the importance of taking her eliquis during her telemedicine visits due to risk of blood clots but patient states she has been so week the past couple of weeks that she has been unable to take her medications and has basically been bed bound. She presented to the emergency room with complaint of shortness of air and was found to have extensive bilateral pulmonary emboli. She will be admitted to cardiac stepdown with cardiology consult. Discharge Summary Hospital Course Was the Problem List Reviewed?: Yes Hospital Course This is a 74 year old female with a history of paroxysmal atrial fibrillation as well as COVID-19 diagnosed in December. She has had several emergency room visits since her COVID diagnosis as well as at least 2 telemed visits with me. She had continued to report fever but has been afebrile in the ER and has been afebrile since admit. I had stress the importance of taking her eliquis during her telemedicine visits due to risk of blood clots but patient states she has been so week the past couple of weeks that she has been unable to take her medications and has basically been bed bound. She presented to the emergency room with complaint of shortness of air and was found to have extensive bilateral pulmonary emboli. She will be admitted to cardiac stepdown with cardiology consult. She was admitted to cardiac stepdown and treated with high dose lovenox for her PEs the first 48hrs. She was then switched to oral eliquis. She was treated for pneumonia as well with IV vancomycin and cefepime for post-COVID pneumonia. She did require vapotherm until about 48hrs prior to discharge at which time she was able to be weaned to a nasal cannula. She was very weak requiring at least 2 people to get her up and it was felt that she would need SNF for further strengthening. The patient was agreeable to this plan and chose [facility]. They did have bed availability and she will be discharged to [facility] for PT/OT and strengthening with a follow up in 2 weeks. Her hospital course was also complicated by chest pain due to her PEs as well as migraines. These both responded to low doses of toradol and fentanyl. Cardiology and pulmonology were both consulted during her hospital stay as well. Labs Laboratory Tests 02/02/20 16:05: Glucometer 363H 02/02/20 20:57: Glucometer 234H 02/03/20 05:45: Glucometer 240H 02/03/20 11:16: Glucometer 181H 02/03/20 16:50: Glucometer 264H 02/03/20 20:46: Glucometer 212H 02/04/20 05:09: Glucometer 152H 02/04/20 11:13: Glucometer 149H 02/04/20 16:09: Glucometer 288H 02/04/20 20:55: Glucometer 206H 02/05/20 05:01: Glucometer 159H Procedures None. Discharge Physical Examination Allergies: Coded Allergies: Penicillins (Unverified Allergy, Severe, Pt has received Cefepime & C eftriaxone in the past w/o issue, 09/22/19) SWELLING, RASH, ITCHING Sulfa (Sulfonamide Antibiotics) (Verified Allergy, Mild, 09/22/19) RASH aspirin (Verified Adverse Reaction, Mild, ASPIRIN SENSITIVE, 09/22/19) UPSET STOMACH sumatriptan (Verified Adverse Reaction, Mild, PALPITATIONS, 09/22/19) IRRITABLE Vitals & I&Os Vital Signs Date Time Temp Pulse Resp B/P (MAP) Pulse Ox O2 Delivery O2 Flow Rate FiO2 02/05/20 11:30 36.4 82 20 151/81 (104) 94 Nasal Cannula 3.00 02/03/20 04:57 30 General Appearance: Alert, Oriented X3, Cooperative, No Acute Distress Respiratory: Clear to Auscultation Cardiovascular: Regular Rate Abdominal: Normal Bowel Sounds, Soft, No Tenderness Psych/Mental Status: Mental Status NL, Mood NL Discharge Home Medications Reviewed and agree with Discharge Medication list on patient's Discharge Ins truction sheet Instructions to Patient/Family Please see electronic discharge instructions given to patient. Clinical Quality Measures DVT/VTE Risk/Contraindication: Risk Factor Score Per Nursin RFS Level Per Nursing on Admit: 4+=Very High NANNETTE REVELES DO Feb 05, 2020 13:00
== END 2020-02-05 11:59 | DRG 175 ==
LOC: ER 20:57 → EDUNIT# 20:57 → CSD 01-29 01:05 → 4TH 02-03 14:55
PROVIDERS: ADMIT Internal Medicine; ATTEND Family Medicine
DX: I26.99 Other pulmonary embolism without acute cor pulmonale (principal); J12.89 Other viral pneumonia; J96.01 Acute respiratory failure with hypoxia; I82.411 Acute embolism and thrombosis of right femoral vein; J44.0 Chronic obstructive pulmonary disease with (acute) lower respiratory infection; I42.8 Other cardiomyopathies; Z68.41 Body mass index [BMI] 40.0-44.9, adult; I87.2 Venous insufficiency (chronic) (peripheral); I48.0 Paroxysmal atrial fibrillation; R79.89 Other specified abnormal findings of blood chemistry; G89.29 Other chronic pain; G43.909 Migraine, unspecified, not intractable, without status migrainosus; G47.30 Sleep apnea, unspecified; I25.10 Atherosclerotic heart disease of native coronary artery without angina pectoris; I10 Essential (primary) hypertension; E78.00 Pure hypercholesterolemia, unspecified; E11.42 Type 2 diabetes mellitus with diabetic polyneuropathy; E66.9 Obesity, unspecified; G25.81 Restless legs syndrome; M79.7 Fibromyalgia; M19.91 Primary osteoarthritis, unspecified site; B94.8 Sequelae of other specified infectious and parasitic diseases; I65.23 Occlusion and stenosis of bilateral carotid arteries; F41.9 Anxiety disorder, unspecified; F32.9 Major depressive disorder, single episode, unspecified; K21.9 Gastro-esophageal reflux disease without esophagitis; R13.10 Dysphagia, unspecified; B37.2 Candidiasis of skin and nail; K58.9 Irritable bowel syndrome, unspecified; Z95.810 Presence of automatic (implantable) cardiac defibrillator; Z99.81 Dependence on supplemental oxygen; Z79.4 Long term (current) use of insulin; Z86.73 Personal history of transient ischemic attack (TIA), and cerebral infarction without residual deficits; Z86.74 Personal history of sudden cardiac arrest; Z98.1 Arthrodesis status; G72.89 Other specified myopathies
CPT/HCPCS: 36415; 51702; 71045; 71275; 80048; 80053; 80306; 81000; 82550; 82553; 82805; 82962; 83605; 83615; 83735; 83874; 83880; 84145; 84146; 84484; 85007; 85025; 85027; 85379; 85610; 85652; 85730; 86141; 87040; 87088; 87804; 93005; 93041; 93308; 93970; 94640; 94664; 94760

== ENCOUNTER 2020-03-18 15:09 | Emergency (ER) | payer MEDICARE ==
[~2020-03-18] VITALS: Ht 162 cm; Wt 100.0 kg
[~2020-03-18 15:09] MED LIST changes: +ACET-93 PO; +ASCO-262 PO; +BACL10TA PO; +CHOL100048 PO; +DOXY100C2 PO; +DULA0.75 SC; +DULA1.5P2 SQ; +FLUC100T6 PO; +MELA10TA2 PO; +NPH,100V SQ; +NYST15CR TP; +RT-ALBUINH IH; +TRAM100T40 PO
--- NOTE | 2020-03-18 16:00 | NUR ---
Patient was administered one nitro tab with little improvement.
[2020-03-18 16:25] LABS: BASOPHILS # (AUTO) 0.1 10^3/uL (0.0-0.1); BASOPHILS % (AUTO) 1 % (0-10); EOSINOPHILS # (AUTO) 0.1 10^3/uL (0.0-0.3); EOSINOPHILS % (AUTO) 2 % (0-10); HEMATOCRIT 42 % (35-52); HEMOGLOBIN 13.8 g/dL (11.5-16.0); LYMPHOCYTES % (AUTO) 22 % (12-44); MEAN CORPUSCULAR HEMOGLOBIN 29 pg (25-34); MEAN CORPUSCULAR HGB CONC 33 g/dL (32-36); MEAN CORPUSCULAR VOLUME 90 fL (80-99); MEAN PLATELET VOLUME 10.1 fL (9.0-12.2); MONOCYTES # (AUTO) 0.4 10^3/uL (0.0-1.0); MONOCYTES % (AUTO) 5 % (0-12); NEUTROPHILS # (AUTO) 6.5 10^3/uL (1.8-7.8); NEUTROPHILS % (AUTO) 71 % (42-75); PLATELET COUNT 311 10^3/uL (130-400); WHITE BLOOD COUNT 9.2 10^3/uL (4.3-11.0)
--- NOTE | 2020-03-18 16:26 | ED Chest Pain ---
General Chief Complaint: Cardiac/General Problems Stated Complaint: HIGH BLOOD PRESSURE Source: patient Exam Limitations: no limitations History of Present Illness Date Seen by Provider: Mar 18, 2020 Time Seen by Provider: 16:06 Initial Comments Patient presents ER by private conveyance with chief complaint of palpitations and feeling some substernal chest pain radiating up into bilateral jaws since yesterday evening. She says she put her blood pressure cuff on and her pulse oximeter and had readings of a low heart rate for about half an hour around 35. She decided to come in today because she is felt poorly. She has been getting better since she was diagnosed with COVID-19 and bilateral pulmonary embolisms at the end of January 2020 until the last day she says she started feeling poorly. No fevers chills cough or shortness of air. No nausea diarrhea or other worrisome symptoms. No changes in her medications recently. She says she has been taking them on time routinely. She says her blood sugar was around 115 when she started feeling poorly today. She does routinely require oxygen but she says she does not always wear it. She has not had low oxygen saturations. She is still taking her Eliquis. Last cath on 09/22/2019 demonstrating no angiographically significant coronary artery disease and LVEF of 50%. Echocardiogram January 29, 2020 showing EF of 55 to 65% with signs of right ventricular strain and pressure and volume overload. Allergies and Home Medications Allergies Coded Allergies: Penicillins (Unverified Allergy, Severe, Pt has received Cefepime & Ceftriaxone in the past w/o issue, 09/22/19) SWELLING, RASH, ITCHING Sulfa (Sulfonamide Antibiotics) (Verified Allergy, Mild, 09/22/19) RASH aspirin (Verified Adverse Reaction, Mild, ASPIRIN SENSITIVE, 09/22/19) UPSET STOMACH sumatriptan (Verified Adverse Reaction, Mild, PALPITATIONS, 09/22/19) IRRITABLE Home Medications Acetaminophen 500 Mg Tablet, 1,000 MG PO Q6H PRN for PAIN-MILD (1-4) OR TEMPATURE Prescribed by: NANNETTE REVELES on 02/05/20 0946 Albuterol Sulfate 1 Puff Puff, 2 PUFF IH TID PRN for tid 1 PUFF = 90 MCG Prescribed by: NANNETTE REVELES on 02/05/20 0948 Apixaban 5 Mg Tablet, 5 MG PO BID, (Reported) LAST FILLED 10-07-2019 #180/90 DAY SUPPLY Ascorbate Calcium 500 Mg Tablet, 500 MG PO DAILY, (Reported) Aspirin 81 Mg Tab.chew, 81 MG PO Q48H Prescribed by: NANNETTE REVELES on 02/05/20945 Baclofen 10 Mg Tablet, 20 MG PO BID, (Reported) TAKES 2 (20MG) TABS Cholecalciferol (Vitamin D3) 25 Mcg Capsule, 25 MCG PO DAILY, (Reported) Doxycycline Hyclate 100 Mg Capsule, 100 MG PO BID Prescribed by: NANNETTE REVELES on 02/05/20945 Dulaglutide 1.5 Mg/0.5 Ml Pen.injctr, 1.5 MG SQ WEEK Prescribed by: NANNETTE REVELES on 02/05/20945 Fluconazole 100 Mg Tablet, 100 MG PO DAILY Prescribed by: NANNETTE REVELES on 02/05/20945 Fluticasone/Salmeterol 12 Gm Hfa.aer.ad, 2 PUFF IH RTBID Prescribed by: NANNETTE REVELES on 02/05/20945 Insulin NPH Human Isophane 100 Unit/1 Ml Vial, 25 UNIT SQ BID Prescribed by: NANNETTE REVELES on 02/05/20945 Metoprolol Tartrate 50 Mg Tablet, 50 MG PO BID, (Reported) Montelukast Sodium 10 Mg Tablet, 10 MG PO HS, (Reported) Nystatin 15 Gm Cream..g., 0 GM TP TID Prescribed by: NANNETTE REVELES on 02/05/20945 Omeprazole 40 Mg Capsule.dr, 40 MG PO BID, (Reported) Pramipexole Di-HCl 1 Mg Tablet, 1 MG PO 1600, (Reported) TAKES IN THE LATE AFTERNOON Tramadol HCl 100 Mg Tablet, 100 MG PO TID Prescribed by: NANNETTE REVELES on 02/05/20945 Patient Home Medication List Home Medication List Reviewed: Yes Review of Systems Review of Systems Constitutional: No chills, No diaphoresis; malaise, weakness EENTM: No Blurred Vision, No Double Vision Respiratory: Denies Cough, Denies Shortness of Air Cardiovascular: See HPI, Chest Pain; Denies Edema, Denies Irregular Heart Rate Gastrointestinal: Denies Abdomen Distended, Denies Abdominal Pain Genitourinary: Denies Burning, Denies Discharge Musculoskeletal: No back pain, No gout Skin: No change in color, No dryness All Other Systems Reviewed Negative Unless Noted: Yes Past Dsndbxp-Uwutih-Uddotz Hx Patient Social History Alcohol Use: Denies Use Smoking Status: Never a Smoker 2nd Hand Smoke Exposure: Yes Recent Hopitalizations: No Immunizations Up To Date Tetanus Booster (TDap): Unknown PED Vaccines UTD: No Date of Pneumonia Vaccine: Apr 04, 2018 Date of Influenza Vaccine: Jan 08, 2020 Seasonal Allergies Seasonal Allergies: Yes Past Medical History Surgeries: Yes (LAP CORNELIUS; C-SPINE FUSION/DISCECTOMY C5-C6 ) Abdominal, Appendectomy, Cardiac, Defibrillator, Eye Surgery, Gallbladder, Hysterectomy, Oophorectomy, Orthopedic, Pacemaker, Tonsillectomy Respiratory: Yes (O2 AT 2L/NC CONTINUOUSLY) Asthma, Pneumonia, Chronic Bronchitis, Sleep Apnea, COPD Currently Using CPAP: No Currently Using BIPAP: No Cardiac: Yes (PACEMAKER/DEFIBRILLATOR;CARDIAC ARREST DURING ENT SURGERY;PSVT/PALPITATIONS) Atrial Fibrillation, Chronic Edema/Swelling, Coronary Artery Disease, High Cholesterol, Hypertension, Irregular Heartbeat Neurological: Yes (PERIPHERAL NEUROPATHY HANDS/FEET; CHRONIC HEADACHES) Headaches /Migraines, Neuropathy, TIA 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 Disorders: No Female 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 Disorders: Denies 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 PAIN) Degenerate Disk Disease, Arthritis, Fibromyalgia, Chronic Back Pain, Fractures Endocrine: Yes Diabetes, Insulin dep, Diabetes, Non-Insulin dep HEENT: Yes (S/P BILATERAL CATARACT SURGERY + YAG PROCEDURE;ENT SURG WITH CARDIAC ARREST) Cataract Loss of Vision: Denies Hearing Impairment: Denies Cancer: No Psychosocial: Yes Anxiety, Depression Integumentary: Yes (NELIA INTERTRIGO) Pruritis Blood Disorders: No Adverse Reaction/Blood Tranf: No Family Medical History Alzheimer's disease 19 FATHER Cardiovascular disease 19 FATHER 19 MOTHER Completed stroke 19 MOTHER Hypertension 19 FATHER 19 MOTHER Myocardial infarction 19 FATHER 19 MOTHER No Family History of: Diabetes mellitus PSH: -T12 KYPHOPLASTY -C5-C6 CERVICAL DISCECTOMY WITH FUSION 04/2018 -LAP CORNELIUS FUNDOPLICATION -EGD'S/ESOPHAGEAL DILATIONS/COLONOSCOPIES/POLYPECTOMIES -PACEMAKER/DEFIBRILLATOR -HYSTERECTOMY/BSO -CHOLECYSTECTOMY -APPENDECTOMY -TONSILLECTOMY -OVARIAN CYST SURGERIES X 4 -CYST FROM BACK REMOVED -ENT SURGERY -BILATERAL CARPAL TUNNEL REPAIR -BILATERAL CATARACT SURGERY + YAG PROCEDURE PMH: -CHRONIC NECK PAIN WITH CERVICAL RADICULOPATHY -RESTLESS LEG SYNDROME -CHRONIC BACK PAIN -T12 COMPRESSION WITH KYPHOPLASTY -HAS HAD POST OP RESPIRATORY FAILURE IN PAST -HAD CARDIAC ARREST WITH ENT SURGERY -CAROTID DISEASE--40-50% STENOSIS BILAT ICA -PAROXYSMAL A FIB--HAS REFUSED ORAL ANTICOAGULANTS -HX OF V-FIB AND BRADYCARDIA--S/P PACEMAKER/DEFIBRILLATOR -08/23/19--CARDIAC CATH--NO SIGNIFICANT CORONARY ARTERY DISEASE, EF 50% Physical Exam Vital Signs Vital Signs - First Documented 03/18/20 15:42 Temp 36.6 Pulse 105 Resp 18 B/P (MAP) 147/83 (104) Pulse Ox 97 O2 Delivery Nasal Cannula O2 Flow Rate 2.00 FiO2 100 Capillary Refill : Height, Weight, BMI Height: 5'4.00" Weight: 215lbs. 0oz. [id number]; 36.35 BMI Method:Stated General Appearance: No Apparent Distress, Anxious, Chronically ill, Obese HEENT: PERRL/EOMI, Pharynx Normal, Moist Mucous Membranes Neck: Full Range of Motion, Normal Inspection, Non Tender Respiratory: Chest Non Tender, Lungs Clear, Normal Breath Sounds, No Accessory Muscle Use, No Respiratory Distress Cardiovascular: Regular Rate, Rhythm, No Edema, Normal Peripheral Pulses Gastrointestinal: Normal Bowel Sounds, Non Tender, Soft Extremity: Normal Capillary Refill, Normal Inspection, Normal Range of Motion, Non Tender, No Calf Tenderness, No Pedal Edema Neurologic/Psychiatric: Alert, Oriented x3, No Motor/Sensory Deficits Skin: Normal Color, Warm/Dry Procedures/Interventions Date of ETT Placement: Apr 21, 2018 Time of ETT Placement: 1744 Progress/Results/Core Measures Results/Orders Lab Results Laboratory Tests Test 03/18/20 15:45 Range/Units White Blood Count 9.2 4.3-11.0 10^3/uL Red Blood Count 4.69 3.80-5.11 10^6/uL Hemoglobin 13.8 11.5-16.0 g/dL Hematocrit 42 35-52 % Mean Corpuscular Volume 90 80-99 fL Mean Corpuscular Hemoglobin 29 25-34 pg Mean Corpuscular Hemoglobin Concent 33 32-36 g/dL Red Cell Distribution Width 14.6 H 10.0-14.5 % Platelet Count 311 130-400 10^3/uL Mean Platelet Volume 10.1 9.0-12.2 fL Immature Granulocyte % (Auto) 1 % Neutrophils (%) (Auto) 71 42-75 % Lymphocytes (%) (Auto) 22 12-44 % Monocytes (%) (Auto) 5 0-12 % Eosinophils (%) (Auto) 2 0-10 % Basophils (%) (Auto) 1 0-10 % Neutrophils # (Auto) 6.5 1.8-7.8 10^3/uL Lymphocytes # (Auto) 2.0 1.0-4.0 10^3/uL Monocytes # (Auto) 0.4 0.0-1.0 10^3/uL Eosinophils # (Auto) 0.1 0.0-0.3 10^3/uL Basophils # (Auto) 0.1 0.0-0.1 10^3/uL Immature Granulocyte # (Auto) 0.1 0.0-0.1 10^3/uL Prothrombin Time 13.1 12.2-14.7 SEC INR Comment 1.0 0.8-1.4 Activated Partial Thromboplast Time 25 24-35 SEC Sodium Level 139 135-145 MMOL/L Potassium Level 3.4 L 3.6-5.0 MMOL/L Chloride Level 104 98-107 MMOL/L Carbon Dioxide Level 21 21-32 MMOL/L Anion Gap 14 5-14 MMOL/L Blood Urea Nitrogen 10 7-18 MG/DL Creatinine 0.91 0.60-1.30 MG/DL Estimat Glomerular Filtration Rate > 60 BUN/Creatinine Ratio 11 Glucose Level 221 H 70-105 MG/DL Calcium Level 10.3 H 8.5-10.1 MG/DL Corrected Calcium 10.4 H 8.5-10.1 MG/DL Magnesium Level 1.6 1.6-2.4 MG/DL Total Bilirubin 0.3 0.1-1.0 MG/DL Aspartate Amino Transf (AST/SGOT) 36 H 5-34 U/L Alanine Aminotransferase (ALT/SGPT) 35 0-55 U/L Alkaline Phosphatase 97 40-136 U/L Myoglobin 28.8 10.0-92.0 NG/ML Troponin I < 0.028 <0.028 NG/ML Total Protein 7.1 6.4-8.2 GM/DL Albumin 3.9 3.2-4.5 GM/DL Lipase 10 8-78 U/L My Orders Orders - ISRAEL ODELL Cbc With Automated Diff (03/18/20 16:17) Magnesium (03/18/20 16:17) Chest 1 View, Ap/Pa Only (03/18/20 16:17) Ekg Tracing (03/18/20 16:17) Comprehensive Metabolic Panel (03/18/20 16:17) Myoglobin Serum (03/18/20 16:17) Protime With Inr (03/18/20 16:17) Partial Thromboplastin Time (03/18/20 16:17) O2 (03/18/20 16:17) Monitor-Rhythm Ecg Trace Only (03/18/20 16:17) Lipid Panel (03/19/20 06:00) Ed Iv/Invasive Line Start (03/18/20 16:17) Lipase (03/18/20 16:17) Troponin I (03/18/20 16:17) Nitroglycerin 0.4 Mg Btl 25's (Nitrostat (03/18/20 16:30) Troponin I (03/18/20 19:00) Ketorolac Injection (Toradol Injection) (03/18/20 18:30) Promethazine Injection (Phenergan Injec (03/18/20 18:30) Diphenhydramine Injection (Benadryl Inje (03/18/20 18:30) Ed Iv/Invasive Line Start (03/18/20 18:30) Normal Saline 500ml Iv (03/18/20 18:30) Acetaminophen Tablet (Tylenol Tablet) (03/18/20 18:30) Medications Given in ED Current Medications Medications Dose Ordered Sig/Alannah Route Start Time Stop Time Status Last Admin Dose Admin Nitroglycerin 0.4 mg UD PRN SL 03/18/20 16:30 03/18/20 17:46 0.4 MG Vital Signs/I&O 03/18/20 03/18/20 15:42 15:42 Temp 36.6 Pulse 105 Resp 18 B/P (MAP) 147/83 (104) Pulse Ox 97 97 O2 Delivery Nasal Cannula Nasal Cannula O2 Flow Rate 2.00 FiO2 100 Progress Progress Note #1: Time: 17:55 Progress Note While we are in doing her examination she did have an 11 beat run of V. tach. We had the pacemaker defibrillator interrogated and the report is she had an SVT approaching the rate of V. fib terminated by pacing on February 28 but nothing since then. No mention of any bradycardia. The team reading her pacemaker/defibrillator said oftentimes when the patient's have frequent PVCs the pulse oximeter's and blood pressure cuffs will read artificially low. Patient was given some aspirin. We gave her a single dose of nitroglycerin which had no significant effect on her symptoms. Progress Note #2: Time: 18:14 Progress Note Discussed the case with the capable Emmanuel Rodriguez and he is willing to take over care of the patient at shift change. He is awaiting a 1900 delta troponin. If this is negative she is to follow-up outpatient with Dr. Cerda. Return precautions have been discussed. Patient started to develop a migraine shortly after arrival. We did give her something to shade her eyes and will give her some Toradol, Benadryl, Tylenol, 500 cc of fluid and Phenergan. We discussed the risks involved with Toradol single dose while on Eliquis. It is felt at this time the patient is far enough along after her pulmonary embolism that a single dose is an acceptable risk to the patient. She agrees with the plan. Initial ECG Impression Date: Mar 18, 2020 Initial ECG Impression Time: 15:44 Initial ECG Rate: 97 Initial ECG Rhythm: Normal Sinus Initial ECG Intervals: Normal Initial ECG Impression: Normal Initial ECG Comparisson: Unchanged Comment Normal sinus rhythm without clinically relevant ST elevation or depression. Diagnostic Imaging Diagonstic Imaging: Xray Plain Films/CT/US/NM/MRI: chest Comments [facility], [place] NAME: BRAYDON ARBOLEDA [facility] REC#: [id number] PT STATUS: REG ER : 1945 PHYSICIAN: ISRAEL ODELL MD ADMIT DATE: 03/18/20/ER Signed Date of Exam:03/18/20 CHEST 1 VIEW, AP/PA ONLY INDICATION: Chest pain. COMPARISON: 02/02/2020. EXAMINATION: Single frontal view of the chest. FINDINGS: Normal heart size and pulmonary vascularity. Left-sided AICD is noted. The lungs are well aerated and clear. No large pleural effusion or pneumothorax is seen. The visualized osseous structures show no acute abnormality. IMPRESSION: No acute cardiopulmonary process. Dictated by: Dictated on workstation # [id number] Dict: 03/18/20 1646 Trans: 03/18/20 1706 PJE [id number] Interpreted by: ROLDAN QUEEN MD Electronically signed by: ROLDAN QUEEN MD 03/18/201705 Reviewed: Reviewed by Me Consults : Consulting Physician: Dania LANDA MD Consults Notes We reviewed the negative troponin 24 hours of start of symptoms and EKG and labs and the run of V tachycardia. We also reviewed that about 6 months ago she had a negative Angiocath. He would recommend at this time a 3-hour rule out should be sufficient from the emergency room and have her follow-up with Dr. Cerda. Departure Impression Primary Impression: Chest pain Qualified Codes: R07.9 - Chest pain, unspecified Disposition: 01 HOME, SELF-CARE Condition: Stable Departure-Patient Inst. Decision time for Depature: 18:10 Referrals: ULI CERDA MD [facility] NANNETTE REVELES DO (PCP/Family) Primary Care Physician Patient Instructions: Chest Pain That Is Not Caused by the Heart (DC) Add. Discharge Instructions: Continue taking your medications and plan to follow-up with Dr. Cerda by calling for an appointment on Saturday. Return to the ER if you have significantly worsening symptoms. All discharge instructions reviewed with patient and/or family. Voiced understanding. Copy Copies To 1: [facility] Mar 18, 2020 16:26
[2020-03-18 16:27] LABS: ALBUMIN 3.9 GM/DL (3.2-4.5)
[2020-03-18 16:28] LABS: CHLORIDE 104 MMOL/L (98-107); POTASSIUM 3.4 MMOL/L (3.6-5.0); SODIUM 139 MMOL/L (135-145)
[2020-03-18 16:29] LABS: CALCIUM 10.3 MG/DL (8.5-10.1)
[2020-03-18 16:30] LABS: GLUCOSE 221 MG/DL (70-105); PROTHROMBIN TIME PATIENT 13.1 SEC (12.2-14.7); TOTAL PROTEIN 7.1 GM/DL (6.4-8.2)
[2020-03-18] MEDS ORDERED: NITROGLYCERIN 0.4 MG SL TABS BTL 25'S SL PRN (16:30)
--- NOTE | 2020-03-18 16:30 | NUR ---
Patients pacemaker interoggated, tolerated well.
[2020-03-18 16:31] LABS: CARBON DIOXIDE 21 MMOL/L (21-32)
[2020-03-18 16:32] LABS: BILIRUBIN,TOTAL 0.3 MG/DL (0.1-1.0)
[2020-03-18 16:33] LABS: ALKALINE PHOSPHATASE 97 U/L (40-136); CREATININE SERUM 0.91 MG/DL (0.60-1.30); GFR ESTIMATED > 60
[2020-03-18 16:35] LABS: BUN/CREATININE RATIO 11
[2020-03-18 16:36] LABS: ALANINE AMINOTRANSFERASE 35 U/L (0-55)
[2020-03-18 16:37] LABS: MAGNESIUM 1.6 MG/DL (1.6-2.4)
[2020-03-18 16:38] LABS: LIPASE 10 U/L (8-78)
--- NOTE | 2020-03-18 16:51 | Diagnostic Imaging Report ---
INDICATION: Chest pain. COMPARISON: 02/02/2020. EXAMINATION: Single frontal view of the chest. FINDINGS: Normal heart size and pulmonary vascularity. Left-sided AICD is noted. The lungs are well aerated and clear. No large pleural effusion or pneumothorax is seen. The visualized osseous structures show no acute abnormality. IMPRESSION: No acute cardiopulmonary process. Dictated by: Dictated on workstation # [id number]
[2020-03-18] MEDS ORDERED: diphenhydrAMINE 50 MG/ML INJ (BENADRYL) IVP ONE (18:30)
[2020-03-18] MEDS ORDERED: PROMETHAZINE INJ 25 MG/ML (PHENERGAN) AMP IVP ONE (18:30)
[2020-03-18] MEDS ORDERED: ACETAMINOPHEN 500 MG TAB (TYLENOL) PO ONE (18:30)
[2020-03-18] MEDS ORDERED: KETOROLAC 30 MG/ML VIAL IVP ONE (18:30)
[2020-03-18] MEDS ORDERED: NS IV 500 ML 500 ML IV ONE (18:30)
--- NOTE | 2020-03-18 18:58 | NUR ---
Report given to Melita Low Rn
--- NOTE | 2020-03-18 19:00 | NUR ---
RECIEVED REPORT FROM SHRAVAN MERAZ TO ASSUME CARE OF PT AT THIS TIME.
--- NOTE | 2020-03-18 19:05 | NUR ---
REPEAT TROPONIN SENT TO LAB AT 1905
[2020-03-18 20:20] VITALS: BP 162/96
== END 2020-03-18 20:20 | disposition home or self-care (01) ==
LOC: EDUNIT# 15:09 → ER 15:10
DX: R07.9 Chest pain, unspecified (principal); J44.9 Chronic obstructive pulmonary disease, unspecified; K21.9 Gastro-esophageal reflux disease without esophagitis; I10 Essential (primary) hypertension; I48.91 Unspecified atrial fibrillation; E11.9 Type 2 diabetes mellitus without complications; F41.9 Anxiety disorder, unspecified; E66.9 Obesity, unspecified; Z68.36 Body mass index [BMI] 36.0-36.9, adult; Z88.0 Allergy status to penicillin; Z88.2 Allergy status to sulfonamides; Z88.8 Allergy status to other drugs, medicaments and biological substances; Z86.73 Personal history of transient ischemic attack (TIA), and cerebral infarction without residual deficits; Z82.49 Family history of ischemic heart disease and other diseases of the circulatory system; Z77.22 Contact with and (suspected) exposure to environmental tobacco smoke (acute) (chronic); Z95.810 Presence of automatic (implantable) cardiac defibrillator; Z79.82 Long term (current) use of aspirin; Z79.01 Long term (current) use of anticoagulants; Z79.4 Long term (current) use of insulin
CPT/HCPCS: 36415; 71045; 80053; 83690; 83735; 83874; 84484; 85025; 85610; 85730; 93005; 93041

== ENCOUNTER 2020-04-15 14:29 | Emergency (ER) | payer MEDICARE ==
[~2020-04-15] VITALS: Ht 160 cm; Wt 98.0 kg
[~2020-04-15 14:29] MED LIST changes: +MONT10TA32 PO; -MONT10TA97 PO
--- NOTE | 2020-04-15 15:27 | ED Fall/Injury ---
General Chief Complaint: Trauma-Non Activation Stated Complaint: FALL / GENERAL PAIN Source: patient Exam Limitations: no limitations History of Present Illness Date Seen by Provider: Apr 15, 2020 Time Seen by Provider: 15:09 Initial Comments Patient presents ER by private conveyance from home chief complaint she had a fall sometime this morning although she is unclear on the time and is fairly certain that she did not lose consciousness. She says she was carrying groceries into the house and tripped over a quilt that was on the floor to be laundered striking the top of her head. She does not have a knot on her head however she is having pain throughout her neck and back as well as her right hip knee and ankle are all hurting. She called EMS and they helped her get up but she decided to report by private conveyance. No numbness tingling loss of control of bowel and/or bladder. She rates her pain as a 8-9 out of 10. She has not taken anything for it. The patient is on Eliquis. Allergies and Home Medications Allergies Coded Allergies: Penicillins (Unverified Allergy, Severe, Pt has received Cefepime & Ceftriaxone in the past w/o issue, 09/22/19) SWELLING, RASH, ITCHING Sulfa (Sulfonamide Antibiotics) (Verified Allergy, Mild, 09/22/19) RASH aspirin (Verified Adverse Reaction, Mild, ASPIRIN SENSITIVE, 09/22/19) UPSET STOMACH sumatriptan (Verified Adverse Reaction, Mild, PALPITATIONS, 09/22/19) IRRITABLE Home Medications Acetaminophen 500 Mg Tablet, 1,000 MG PO Q6H PRN for PAIN-MILD (1-4) OR TEMPATURE Prescribed by: NANNETTE REVELES on 02/05/20 0946 Albuterol Sulfate 1 Puff Puff, 2 PUFF IH TID PRN for tid 1 PUFF = 90 MCG Prescribed by: NANNETTE REVELES on 02/05/20 0948 Apixaban 5 Mg Tablet, 5 MG PO BID, (Reported) LAST FILLED 10-07-2019 #180/90 DAY SUPPLY Ascorbate Calcium 500 Mg Tablet, 500 MG PO DAILY, (Reported) Aspirin 81 Mg Tab.chew, 81 MG PO Q48H Prescribed by: NANNETTE REVELES on 02/05/20 0946 Baclofen 10 Mg Tablet, 20 MG PO BID, (Reported) TAKES 2 (20MG) TABS Cholecalciferol (Vitamin D3) 25 Mcg Capsule, 25 MCG PO DAILY, (Reported) Doxycycline Hyclate 100 Mg Capsule, 100 MG PO BID Prescribed by: NANNETTE REVELES on 02/05/20945 Dulaglutide 1.5 Mg/0.5 Ml Pen.injctr, 1.5 MG SQ WEEK Prescribed by: NANNETTE REVELES on 02/05/20945 Fluconazole 100 Mg Tablet, 100 MG PO DAILY Prescribed by: NANNETTE REVELES on 02/05/20945 Fluticasone/Salmeterol 12 Gm Hfa.aer.ad, 2 PUFF IH RTBID Prescribed by: NANNETTE REVELES on 02/05/20945 Insulin NPH Human Isophane 100 Unit/1 Ml Vial, 25 UNIT SQ BID Prescribed by: NANNETTE REVELES on 02/05/20945 Metoprolol Tartrate 50 Mg Tablet, 50 MG PO BID, (Reported) Montelukast Sodium 10 Mg Tablet, 10 MG PO HS, (Reported) Nystatin 15 Gm Cream..g., 0 GM TP TID Prescribed by: NANNETTE REVELES on 02/05/20945 Omeprazole 40 Mg Capsule.dr, 40 MG PO BID, (Reported) Pramipexole Di-HCl 1 Mg Tablet, 1 MG PO 1600, (Reported) TAKES IN THE LATE AFTERNOON Tramadol HCl 100 Mg Tablet, 100 MG PO TID Prescribed by: NANNETTE REVELES on 02/05/20945 Patient Home Medication List Home Medication List Reviewed: Yes Review of Systems Review of Systems Constitutional: No chills, No diaphoresis Eyes: Denies Blindness, Denies Drainage Ears, Nose, Mouth, Throat: denies ear pain, denies ear discharge Respiratory: No cough, No short of breath Cardiovascular: No chest pain, No palpitations Gastrointestinal: No abdominal pain, No nausea, No vomiting Genitourinary: No discharge, No dysuria Musculoskeletal: see HPI, back pain, joint pain Past Ecyopnp-Alfgzl-Wavfnf Hx Patient Social History Alcohol Use: Denies Use Smoking Status: Never a Smoker 2nd Hand Smoke Exposure: Yes Recent Hopitalizations: No Immunizations Up To Date Tetanus Booster (TDap): Unknown PED Vaccines UTD: No Date of Pneumonia Vaccine: Apr 04, 2018 Date of Influenza Vaccine: Jan 08, 2020 Seasonal Allergies Seasonal Allergies: Yes Past Medical History Surgeries: Yes (LAP CORNELIUS; C-SPINE FUSION/DISCECTOMY C5-C6 ) Abdominal, Appendectomy, Cardiac, Defibrillator, Eye Surgery, Gallbladder, Hysterectomy, Oophorectomy, Orthopedic, Pacemaker, Tonsillectomy Respiratory: Yes (O2 AT 2L/NC CONTINUOUSLY) Asthma, Pneumonia, Chronic Bronchitis, Sleep Apnea, COPD Currently Using CPAP: No Currently Using BIPAP: No Cardiac: Yes (PACEMAKER/DEFIBRILLATOR;CARDIAC ARREST DURING ENT SURGERY;PSVT/PALPITATIONS) Atrial Fibrillation, Chronic Edema/Swelling, Coronary Artery Disease, High Cholesterol, Hypertension, Irregular Heartbeat Neurological: Yes (PERIPHERAL NEUROPATHY HANDS/FEET; CHRONIC HEADACHES) Headaches /Migraines, Neuropathy, TIA 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 Disorders: No Female 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 Disorders: Denies [employer] History: Hysterectomy Sexually Transmitted Disease: No Genitourinary: Yes Kidney Infection, Bladder Infection, Kidney Stones, UTI-Chronic Gastrointestinal: Yes (S/P CORNELIUS FUNDOPLICATION; ESOPHAGEAL STRICTURES/DILATIONS; DYSPHAGIA) Gastroesophageal Reflux, Diverticulosis, Hemorrhoids, Polyps, C-Diff, Hiatal Hernia, Ulcer, Irritable Bowel Musculoskeletal: Yes (CHRONIC NECK PAIN/RADICU;T12 COMPRESSION FX;CHRONIC SHOULDER PAIN;GEN. PAIN) Degenerate Disk Disease, Arthritis, Fibromyalgia, Chronic Back Pain, Fractures Endocrine: Yes Diabetes, Insulin dep, Diabetes, Non-Insulin dep HEENT: Yes (S/P BILATERAL CATARACT SURGERY + YAG PROCEDURE;ENT SURG WITH CARDIAC ARREST) Cataract Loss of Vision: Denies Hearing Impairment: Denies Cancer: No Psychosocial: Yes Anxiety, Depression Integumentary: Yes (NELIA INTERTRIGO) Pruritis Blood Disorders: No Adverse Reaction/Blood Tranf: No Family Medical History Alzheimer's disease 19 FATHER Cardiovascular disease 19 FATHER 19 MOTHER Completed stroke 19 MOTHER Hypertension 19 FATHER 19 MOTHER Myocardial infarction 19 FATHER 19 MOTHER No Family History of: Diabetes mellitus PSH: -T12 KYPHOPLASTY -C5-C6 CERVICAL DISCECTOMY WITH FUSION 04/2018 -LAP CORNELIUS FUNDOPLICATION -EGD'S/ESOPHAGEAL DILATIONS/COLONOSCOPIES/POLYPECTOMIES -PACEMAKER/DEFIBRILLATOR -HYSTERECTOMY/BSO -CHOLECYSTECTOMY -APPENDECTOMY -TONSILLECTOMY -OVARIAN CYST SURGERIES X 4 -CYST FROM BACK REMOVED -ENT SURGERY -BILATERAL CARPAL TUNNEL REPAIR -BILATERAL CATARACT SURGERY + YAG PROCEDURE PMH: -CHRONIC NECK PAIN WITH CERVICAL RADICULOPATHY -RESTLESS LEG SYNDROME -CHRONIC BACK PAIN -T12 COMPRESSION WITH KYPHOPLASTY -HAS HAD POST OP RESPIRATORY FAILURE IN PAST -HAD CARDIAC ARREST WITH ENT SURGERY -CAROTID DISEASE--40-50% STENOSIS BILAT ICA -PAROXYSMAL A FIB--HAS REFUSED ORAL ANTICOAGULANTS -HX OF V-FIB AND BRADYCARDIA--S/P PACEMAKER/DEFIBRILLATOR -08/23/19--CARDIAC CATH--NO SIGNIFICANT CORONARY ARTERY DISEASE, EF 50% Physical Exam Vital Signs Vital Signs - First Documented 04/15/20 15:13 Temp 37.0 Pulse 74 Resp 18 B/P (MAP) 143/108 (120) O2 Delivery Room Air Capillary Refill : Height, Weight, BMI Height: 5'4.00" Weight: 215lbs. 0oz. 97.185151ce; 38.00 BMI Method:Stated General Appearance: WD/WN, mild distress HEENT: PERRL/EOMI (Negative for raccoon eyes), normal ENT inspection, TMs normal (Negative for hemotympanum), pharynx normal, other (Negative for valerio sign. Atraumatic head. Nontender to palpation) Neck: supple, normal inspection, tender midline (All levels) Cardiovascular: normal peripheral pulses, regular rate, rhythm Respiratory: chest non-tender, lungs clear, normal breath sounds, no respiratory distress, no accessory muscle use Peripheral Pulses: 2+ Radial Pulses (R), 2+ Radial Pulses (L) Gastrointestinal: normal bowel sounds, non tender, soft Back: normal inspection, vertebral tenderness (All levels with no deformity ecchymoses or crepitus) Extremities: normal range of motion, normal inspection, other (Tenderness over the greater trochanter of the right hip with mild swelling and pain around the right knee and some tenderness on the medial malleolus of the right ankle.) Neurologic/Psychiatric: alert, normal mood/affect, oriented x 3 Skin: normal color, warm/dry Procedures/Interventions Date of ETT Placement: Apr 21, 2018 Time of ETT Placement: 1743 Progress/Results/Core Measures Results/Orders Lab Results Laboratory Tests Test 04/15/20 16:07 Range/Units White Blood Count 11.8 H 4.3-11.0 10^3/uL Red Blood Count 4.49 3.80-5.11 10^6/uL Hemoglobin 13.2 11.5-16.0 g/dL Hematocrit 41 35-52 % Mean Corpuscular Volume 91 80-99 fL Mean Corpuscular Hemoglobin 29 25-34 pg Mean Corpuscular Hemoglobin Concent 32 32-36 g/dL Red Cell Distribution Width 13.3 10.0-14.5 % Platelet Count 242 130-400 10^3/uL Mean Platelet Volume 9.7 9.0-12.2 fL Immature Granulocyte % (Auto) 1 % Neutrophils (%) (Auto) 76 H 42-75 % Lymphocytes (%) (Auto) 17 12-44 % Monocytes (%) (Auto) 5 0-12 % Eosinophils (%) (Auto) 1 0-10 % Basophils (%) (Auto) 1 0-10 % Neutrophils # (Auto) 9.0 H 1.8-7.8 10^3/uL Lymphocytes # (Auto) 2.0 1.0-4.0 10^3/uL Monocytes # (Auto) 0.6 0.0-1.0 10^3/uL Eosinophils # (Auto) 0.1 0.0-0.3 10^3/uL Basophils # (Auto) 0.1 0.0-0.1 10^3/uL Immature Granulocyte # (Auto) 0.1 0.0-0.1 10^3/uL Sodium Level 141 135-145 MMOL/L Potassium Level 4.1 3.6-5.0 MMOL/L Chloride Level 102 98-107 MMOL/L Carbon Dioxide Level 27 21-32 MMOL/L Anion Gap 12 5-14 MMOL/L Blood Urea Nitrogen 11 7-18 MG/DL Creatinine 0.79 0.60-1.30 MG/DL Estimat Glomerular Filtration Rate > 60 BUN/Creatinine Ratio 14 Glucose Level 118 H 70-105 MG/DL Calcium Level 9.2 8.5-10.1 MG/DL Corrected Calcium 9.3 8.5-10.1 MG/DL Total Bilirubin 0.3 0.1-1.0 MG/DL Aspartate Amino Transf (AST/SGOT) 29 5-34 U/L Alanine Aminotransferase (ALT/SGPT) 24 0-55 U/L Alkaline Phosphatase 84 40-136 U/L Total Protein 6.9 6.4-8.2 GM/DL Albumin 3.9 3.2-4.5 GM/DL My Orders Orders - ISRAEL ODELL Ct Head/Cervical Spine Wo (04/15/20 15:20) Ct Thoracic/Lumbar Spine Wo (04/15/20 15:20) Knee, Right, 3 Views (04/15/20 15:20) Ankle, Right, 3 Views (04/15/20 15:20) Pelvis With Right Hip 2-3views (04/15/20 15:20) Fentanyl Injection (Sublimaze Injection (04/15/20 15:30) Cbc With Automated Diff (04/15/20 15:22) Comprehensive Metabolic Panel (04/15/20 15:22) Medications Given in ED Current Medications Medications Dose Ordered Sig/Alannah Route Start Time Stop Time Status Last Admin Dose Admin Fentanyl Citrate 50 mcg ONCE ONCE IVP 04/15/20 15:30 04/15/20 15:31 DC 04/15/20 15:33 50 MCG Vital Signs/I&O 04/15/20 15:13 Temp 37.0 Pulse 74 Resp 18 B/P (MAP) 143/108 (120) O2 Delivery Room Air Progress Progress Note #1: Time: 15:26 Progress Note Imaging of her spine at all levels, c-collar placed. CT of the head without IV contrast. X-ray of her right hip, right knee and right ankle. Fentanyl 50 mcg for pain. Progress Note #2: Time: 16:58 Progress Note C-collar cleared radiographically and clinically. Patient is requesting something more for pain so hydrocodone 5 mg was ordered. Diagnostic Imaging Diagonstic Imaging: Xray Plain Films/CT/US/NM/MRI: knee (r) Comments [facility] [place], [place] NAME: BRAYDON ARBOLEDA [facility] REC#: [id number] PT STATUS: REG ER : 1945 PHYSICIAN: ISRAEL ODELL MD ADMIT DATE: 04/15/20/ER Signed Date of Exam:04/15/20 KNEE, RIGHT, 3 VIEWS INDICATION: Right knee pain, post injury. EXAMINATION: AP, oblique and lateral views of the right knee were obtained. FINDINGS: No fracture or acute bony abnormality is seen. IMPRESSION: Negative right knee. Dictated by: Dictated on workstation # [id number] Dict: 04/15/20 1634 Trans: 04/15/20 1636 PJE [id number] Interpreted by: SHEREEN KELLEY MD Electronically signed by: SHEREEN KELLEY MD 04/15/20 163 Reviewed: Reviewed by Nm Diagonstic Imaging: Xray Plain Films/CT/US/NM/MRI: ankle (r) Comments [facility] [place], [place] NAME: BRAYDON ARBOLEDA [facility] REC#: [id number] PT STATUS: REG ER : 1945 PHYSICIAN: ISRAEL ODELL MD ADMIT DATE: 04/15/20/ER Signed Date of Exam:04/15/20 ANKLE, RIGHT, 3 VIEWS EXAMINATION: Right ankle radiographs, 3 views. COMPARISON: None. HISTORY: 74-year-old female, right ankle pain. FINDINGS: The ankle mortise is unremarkable. There is no identified acute fracture. There is no tibiotalar joint effusion. There is mild degenerative type enthesopathy at the Achilles tendon insertion. The joint spaces are well preserved. There is no radiopaque foreign body. IMPRESSION: No acute bony abnormality of the right ankle. Dictated by: Dictated on workstation # [id number] Dict: 04/15/20 1633 Trans: 04/15/20 1642 PJE [id number] Interpreted by: JORGE BOYD MD Electronically signed by: JORGE BOYD MD 04/15/20 1642 Reviewed: Reviewed by Me Diagonstic Imaging: Xray Plain Films/CT/US/NM/MRI: pelvis, hip (r) Comments [facility] [place], [place] NAME: BRAYDON ARBOLEDA [facility] REC#: [id number] PT STATUS: REG ER : 1945 PHYSICIAN: ISRAEL ODELL MD ADMIT DATE: 04/15/20/ER Signed Date of Exam:04/15/20 PELVIS WITH RIGHT HIP 2-3VIEWS EXAM: Pelvis radiograph with right hip radiographs. Exam date: 04/15/2020 COMPARISON: Pelvic and hip radiographs 08/27/2019. HISTORY: Fall onto the right hip with pain. TECHNIQUE: Single view of the pelvis with 3 views of the right hip. FINDINGS: No acute fracture, dislocation, or destructive osseous process. There are degenerative changes of the hips and pubic symphysis, unchanged from 08/27/2019. Soft tissues are normal. Moderate stool burden throughout the visualized colon. IMPRESSION: 1. Degenerative changes of the pelvis and right hip without acute osseous abnormality. Dictated by: Dictated on workstation # [id number] Dict: 04/15/20 163 Trans: 04/15/201641 [facility] [id number] Interpreted by: ASHWIN SAAVEDRA DO Electronically signed by: ASHWIN SAAVEDRA DO 04/15/201641 Reviewed: Reviewed by Me Diagonstic Imaging: CT Plain Films/CT/US/NM/MRI: c-spine, head Comments NAME: BRAYDON ARBOLEDA [facility] REC#: [id number] PT STATUS: REG ER : 1945 PHYSICIAN: ISRAEL ODELL MD ADMIT DATE: 04/15/20/ER Draft Date of Exam:04/15/20 CT HEAD/CERVICAL SPINE WO PROCEDURE: CT head and CT cervical spine without contrast. TECHNIQUE: Multiple contiguous axial images were obtained through the brain and cervical spine without the use of intravenous contrast. Sagittal and coronal reformations through the cervical spine were then performed. Auto Exposure Controls were utilized during the CT exam to meet ALARA standards for radiation dose reduction. INDICATION: Trauma. Fall. Head and neck pain. COMPARISON: 09/03/2019. FINDINGS: CT head: The ventricles and cortical sulci are diffusely prominent, compatible with age-related volume loss. There are confluent areas of abnormal, low attenuation in the periventricular white matter. This is consistent with chronic small vessel ischemic changes. There is no midline shift or mass-effect. No acute intra-axial hemorrhage is seen. There are no abnormal areas of increased or decreased density to suggest acute hemorrhage or edema. No extra-axial masses or collections are present. The bony calvarium is intact. The visualized paranasal sinuses show mild scattered mucosal thickening. The mastoid air cells are clear. CT cervical spine: Evaluation of static alignment of the cervical spine shows straightening with slight reversal of normal lordotic curvature. Findings may relate to patient positioning, spasm, as well as underlying degenerative changes. There is no significant anterolisthesis or retrolisthesis. There is no evidence of jumped facets. Vertebral body heights are maintained. There is no acute fracture. No bony fragment is seen within the spinal canal. There are postsurgical changes of previous anterior fusion of C5-C6. Bilateral anchor screws appear well-seated. There is no evidence of loosening. Anterior fusion plate appears well opposed to underlying osseous structures. Intervertebral disc spacer is also present and is in appropriate position. No unexpected radiopaque foreign body is seen. Prevertebral and paravertebral soft tissue structures are unremarkable. Included portions of the lung apices are clear. There is calcified carotid atherosclerosis. IMPRESSION: 1. No acute intracranial abnormality. No CT evidence of mass, acute infarct or intracranial hemorrhage. 2. Chronic small vessel ischemic changes in the deep white matter. 3. No acute fracture or dislocation in the cervical spine. 4. Post surgical changes of previous anterior fusion at C5-C6. No evidence of hardware fracture or failure. Dictated on workstation # [id number] Dict: 04/15/20 1646 Trans: 04/15/20 1654 [facility] [id number] Interpreted by: ROLDAN QUEEN MD Electronically signed by: Reviewed: Reviewed by Me Diagonstic Imaging: CT Plain Films/CT/US/NM/MRI: other (Thoracolumbar spine) Comments NAME: BRAYDON [facility]EDA [facility] REC#: [id number] PT STATUS: REG ER : 1945 PHYSICIAN: ISRAEL ODELL MD ADMIT DATE: 04/15/20/ER Draft Date of Exam:04/15/20 CT THORACIC/LUMBAR SPINE WO EXAMINATION: CT thoracic and lumbar spine without contrast. TECHNIQUE: Multiple contiguous axial images were obtained through the thoracic and lumbar spine without the use of intravenous contrast. Sagittal and coronal reformations were then performed. All CT scans use one or more of the following dose optimizing techniques: automated exposure control, MA and/or KvP adjustment based on a patient size and exam type, or iterative reconstruction. HISTORY: Trauma COMPARISON: CTA chest 01/28/2020, CT C-spine 08/27/2019. FINDINGS: Chronic compression fracture of the T12 vertebral body status post vertebral augmentation. No new acute compression fracture. Mild dextrocurvature of the lumbar spine. Vertebral body alignment is otherwise maintained. Multilevel facet hypertrophy within the lumbar spine. Mild loss of disc height at T11-T12. There is mild central canal stenosis at T11-T12 secondary to mild retropulsion from prior compression fracture. No greater than mild central canal stenosis at any level. Atelectasis within the lung bases. Mild aneurysmal dilatation of the ascending thoracic aorta measuring up to 4.1 cm. Scattered calcifications of the abdominal aorta. IMPRESSION: 1. Degenerative changes of the thoracolumbar spine without acute osseous abnormality. Dictated on workstation # [id number] Dict: 04/15/201647 Trans: 04/15/201656 [facility] [id number] Interpreted by: ASHWIN SAAVEDRA DO Electronically signed by: Reviewed: Reviewed by Me Departure Impression Primary Impression: Fall Qualified Codes: W19.XXXA - Unspecified fall, initial encounter Additional Impressions: Back pain Qualified Codes: M54.5 - Low back pain Right leg pain Disposition: 01 HOME, SELF-CARE Condition: Stable Departure-Patient Inst. Decision time for Depature: 17:00 Referrals: NANNETTE REVELES DO (PCP/Family) Primary Care Physician Patient Instructions: Minor Head Injury (DC), Preventing Falls in the Older Adult, Opioids for Short-Term Treatment of Pain, Back Stretches on Floor Add. Discharge Instructions: Hydrocodone 1 tablet every 6 hours as necessary for severe breakthrough pain. Hydrocodone will cause drowsiness as well as constipation. Colace and/or MiraLAX once or twice a day to maintain regularity. Follow-up with your primary care provider if your symptoms are persisting into next week. Return to the ER if you are unable to urinate or having numbness in your legs resulting in falls. All discharge instructions reviewed with patient and/or family. Voiced understanding. Scripts Hydrocodone/Acetaminophen (Hydrocodone-Acetamin 5-325 mg) 1 Each Tablet 1 TAB PO Q6H PRN for PAIN-MODERATE (5-7), #8 TAB 0 Refills Prov: ISRAEL ODELL 04/15/20 ISRAEL ODELL Apr 15, 2020 15:27
[2020-04-15] MEDS ORDERED: fentaNYL INJ 100 MCG/2 ML AMP IVP ONE (15:30)
[2020-04-15 16:18] LABS: BASOPHILS # (AUTO) 0.1 10^3/uL (0.0-0.1); BASOPHILS % (AUTO) 1 % (0-10); EOSINOPHILS # (AUTO) 0.1 10^3/uL (0.0-0.3); EOSINOPHILS % (AUTO) 1 % (0-10); HEMATOCRIT 41 % (35-52); HEMOGLOBIN 13.2 g/dL (11.5-16.0); LYMPHOCYTES % (AUTO) 17 % (12-44); MEAN CORPUSCULAR HEMOGLOBIN 29 pg (25-34); MEAN CORPUSCULAR HGB CONC 32 g/dL (32-36); MEAN CORPUSCULAR VOLUME 91 fL (80-99); MEAN PLATELET VOLUME 9.7 fL (9.0-12.2); MONOCYTES # (AUTO) 0.6 10^3/uL (0.0-1.0); MONOCYTES % (AUTO) 5 % (0-12); NEUTROPHILS % (AUTO) 76 % (42-75); PLATELET COUNT 242 10^3/uL (130-400); WHITE BLOOD COUNT 11.8 10^3/uL (4.3-11.0)
[2020-04-15 16:22] LABS: ALBUMIN 3.9 GM/DL (3.2-4.5); CHLORIDE 102 MMOL/L (98-107); POTASSIUM 4.1 MMOL/L (3.6-5.0); SODIUM 141 MMOL/L (135-145)
[2020-04-15 16:24] LABS: CALCIUM 9.2 MG/DL (8.5-10.1)
[2020-04-15 16:25] LABS: GLUCOSE 118 MG/DL (70-105); TOTAL PROTEIN 6.9 GM/DL (6.4-8.2)
[2020-04-15 16:26] LABS: CARBON DIOXIDE 27 MMOL/L (21-32)
[2020-04-15 16:27] LABS: BILIRUBIN,TOTAL 0.3 MG/DL (0.1-1.0)
[2020-04-15 16:28] LABS: ALKALINE PHOSPHATASE 84 U/L (40-136)
[2020-04-15 16:29] LABS: CREATININE SERUM 0.79 MG/DL (0.60-1.30); GFR ESTIMATED > 60
[2020-04-15 16:30] LABS: BUN/CREATININE RATIO 14
[2020-04-15 16:31] LABS: ALANINE AMINOTRANSFERASE 24 U/L (0-55)
--- NOTE | 2020-04-15 16:35 | Diagnostic Imaging Report ---
EXAMINATION: Right ankle radiographs, 3 views. COMPARISON: None. HISTORY: 74-year-old female, right ankle pain. FINDINGS: The ankle mortise is unremarkable. There is no identified acute fracture. There is no tibiotalar joint effusion. There is mild degenerative type enthesopathy at the Achilles tendon insertion. The joint spaces are well preserved. There is no radiopaque foreign body. IMPRESSION: No acute bony abnormality of the right ankle. Dictated by: Dictated on workstation # [id number]
--- NOTE | 2020-04-15 16:36 | Diagnostic Imaging Report ---
INDICATION: Right knee pain, post injury. EXAMINATION: AP, oblique and lateral views of the right knee were obtained. FINDINGS: No fracture or acute bony abnormality is seen. IMPRESSION: Negative right knee. Dictated by: Dictated on workstation # [id number]
--- NOTE | 2020-04-15 16:37 | Diagnostic Imaging Report ---
EXAM: Pelvis radiograph with right hip radiographs. Exam date: 04/15/2020 COMPARISON: Pelvic and hip radiographs 08/27/2019. HISTORY: Fall onto the right hip with pain. TECHNIQUE: Single view of the pelvis with 3 views of the right hip. FINDINGS: No acute fracture, dislocation, or destructive osseous process. There are degenerative changes of the hips and pubic symphysis, unchanged from 08/27/2019. Soft tissues are normal. Moderate stool burden throughout the visualized colon. IMPRESSION: 1. Degenerative changes of the pelvis and right hip without acute osseous abnormality. Dictated by: Dictated on workstation # [id number]
--- NOTE | 2020-04-15 16:54 | Diagnostic Imaging Report ---
PROCEDURE: CT head and CT cervical spine without contrast. TECHNIQUE: Multiple contiguous axial images were obtained through the brain and cervical spine without the use of intravenous contrast. Sagittal and coronal reformations through the cervical spine were then performed. Auto Exposure Controls were utilized during the CT exam to meet ALARA standards for radiation dose reduction. INDICATION: Trauma. Fall. Head and neck pain. COMPARISON: 09/03/2019. FINDINGS: CT head: The ventricles and cortical sulci are diffusely prominent, compatible with age-related volume loss. There are confluent areas of abnormal, low attenuation in the periventricular white matter. This is consistent with chronic small vessel ischemic changes. There is no midline shift or mass-effect. No acute intra-axial hemorrhage is seen. There are no abnormal areas of increased or decreased density to suggest acute hemorrhage or edema. No extra-axial masses or collections are present. The bony calvarium is intact. The visualized paranasal sinuses show mild scattered mucosal thickening. The mastoid air cells are clear. CT cervical spine: Evaluation of static alignment of the cervical spine shows straightening with slight reversal of normal lordotic curvature. Findings may relate to patient positioning, spasm, as well as underlying degenerative changes. There is no significant anterolisthesis or retrolisthesis. There is no evidence of jumped facets. Vertebral body heights are maintained. There is no acute fracture. No bony fragment is seen within the spinal canal. There are postsurgical changes of previous anterior fusion of C5-C6. Bilateral anchor screws appear well-seated. There is no evidence of loosening. Anterior fusion plate appears well opposed to underlying osseous structures. Intervertebral disc spacer is also present and is in appropriate position. No unexpected radiopaque foreign body is seen. Prevertebral and paravertebral soft tissue structures are unremarkable. Included portions of the lung apices are clear. There is calcified carotid atherosclerosis. IMPRESSION: 1. No acute intracranial abnormality. No CT evidence of mass, acute infarct or intracranial hemorrhage. 2. Chronic small vessel ischemic changes in the deep white matter. 3. No acute fracture or dislocation in the cervical spine. 4. Post surgical changes of previous anterior fusion at C5-C6. No evidence of hardware fracture or failure. Dictated by: Dictated on workstation # [id number]
--- NOTE | 2020-04-15 16:57 | Diagnostic Imaging Report ---
EXAMINATION: CT thoracic and lumbar spine without contrast. TECHNIQUE: Multiple contiguous axial images were obtained through the thoracic and lumbar spine without the use of intravenous contrast. Sagittal and coronal reformations were then performed. All CT scans use one or more of the following dose optimizing techniques: automated exposure control, MA and/or KvP adjustment based on a patient size and exam type, or iterative reconstruction. HISTORY: Trauma COMPARISON: CTA chest 01/28/2020, CT C-spine 08/27/2019. FINDINGS: Chronic compression fracture of the T12 vertebral body status post vertebral augmentation. No new acute compression fracture. Mild dextrocurvature of the lumbar spine. Vertebral body alignment is otherwise maintained. Multilevel facet hypertrophy within the lumbar spine. Mild loss of disc height at T11-T12. There is mild central canal stenosis at T11-T12 secondary to mild retropulsion from prior compression fracture. No greater than mild central canal stenosis at any level. Atelectasis within the lung bases. Mild aneurysmal dilatation of the ascending thoracic aorta measuring up to 4.1 cm. Scattered calcifications of the abdominal aorta. IMPRESSION: 1. Degenerative changes of the thoracolumbar spine without acute osseous abnormality. Dictated by: Dictated on workstation # [id number]
[2020-04-15] MEDS ORDERED: ACHD5005 PO (17:04)
[2020-04-15 17:14] VITALS: BP 131/88
== END 2020-04-15 17:20 | disposition home or self-care (01) ==
LOC: EDUNIT# 14:29 → ER 14:31
DX: M54.5 Low back pain (principal); M79.604 Pain in right leg; M54.2 Cervicalgia; M25.461 Effusion, right knee; M25.551 Pain in right hip; M25.571 Pain in right ankle and joints of right foot; E11.42 Type 2 diabetes mellitus with diabetic polyneuropathy; I10 Essential (primary) hypertension; I25.10 Atherosclerotic heart disease of native coronary artery without angina pectoris; I48.91 Unspecified atrial fibrillation; F41.9 Anxiety disorder, unspecified; F32.9 Major depressive disorder, single episode, unspecified; K21.9 Gastro-esophageal reflux disease without esophagitis; M79.7 Fibromyalgia; G43.909 Migraine, unspecified, not intractable, without status migrainosus; G47.30 Sleep apnea, unspecified; J44.9 Chronic obstructive pulmonary disease, unspecified; Z77.22 Contact with and (suspected) exposure to environmental tobacco smoke (acute) (chronic); Z87.01 Personal history of pneumonia (recurrent); Z99.81 Dependence on supplemental oxygen; Z95.810 Presence of automatic (implantable) cardiac defibrillator; Z86.73 Personal history of transient ischemic attack (TIA), and cerebral infarction without residual deficits; Z86.79 Personal history of other diseases of the circulatory system; Z79.82 Long term (current) use of aspirin; Z79.01 Long term (current) use of anticoagulants; Z79.51 Long term (current) use of inhaled steroids; Z79.4 Long term (current) use of insulin; Z88.0 Allergy status to penicillin; Z88.2 Allergy status to sulfonamides; Z88.6 Allergy status to analgesic agent; Z88.8 Allergy status to other drugs, medicaments and biological substances; Z79.02 Long term (current) use of antithrombotics/antiplatelets; W01.198A Fall on same level from slipping, tripping and stumbling with subsequent striking against other object, initial encounter; Y92.009 Unspecified place in unspecified non-institutional (private) residence as the place of occurrence of the external cause
CPT/HCPCS: 36415; 70450; 72125; 72128; 72131; 73562; 73610; 80053; 85025; 96374

== ENCOUNTER 2020-05-13 18:30 | Emergency (ER) | payer MEDICARE ==
[~2020-05-13] VITALS: Ht 162.6 cm; Wt 98.0 kg
--- NOTE | 2020-05-13 20:13 | ED Headache ---
General Chief Complaint: Head/Cervical Problems Stated Complaint: MIGRAINE / DIZZINESS Nursing Triage Note: PT AMBULATE TO TRIAGE WITH C/O MIGRAIN STARTING LAST NIGHT. PT REPORTS TAKING TYLENOL FOR THE PAIN WITHOUT RELIEF. Nursing Sepsis Screen: No Definite Risk Source: patient Exam Limitations: no limitations History of Present Illness Date Seen by Provider: May 13, 2020 Time Seen by Provider: 19:58 Initial Comments This is a well-appearing 74-year-old female who presents to the ER via POV for complaints of migraine headache. States she has a history of migraines however tonight's headache feels different than priors. States around 3 AM this morning she could not sleep and she got up to unpack some boxes when she had sudden onset of severe migraine. Her typical migraines start slow and build up to 10 out of 10 pain however this was a sudden onset which is not her typical. Also states that she was diagnosed with Covid and multiple blood clots back in February 2020 and she is currently taking Eliquis twice daily. Notes that she did hit her head on her cabinet a week ago but is not sure if this has any correlation. Reports some blurred vision earlier today, but this has improved. Took Tylenol but this has not helped with the pain. Additionally has some nausea without emesis and feels generally weaker than usual. Denies fever, chills, cough, shortness of breath, chest pain, abdominal pain. Allergies and Home Medications Allergies Coded Allergies: Penicillins (Unverified Allergy, Severe, Pt has received Cefepime & Ceftriaxone in the past w/o issue, 09/22/19) SWELLING, RASH, ITCHING Sulfa (Sulfonamide Antibiotics) (Verified Allergy, Mild, 09/22/19) RASH aspirin (Verified Adverse Reaction, Mild, ASPIRIN SENSITIVE, 09/22/19) UPSET STOMACH sumatriptan (Verified Adverse Reaction, Mild, PALPITATIONS, 09/22/19) IRRITABLE Home Medications Acetaminophen 500 Mg Tablet, 1,000 MG PO Q6H PRN for PAIN-MILD (1-4) OR TEMPATURE Prescribed by: NANNETTE REVELES on 02/05/20 0946 Albuterol Sulfate 1 Puff Puff, 2 PUFF IH TID PRN for tid 1 PUFF = 90 MCG Prescribed by: NANNETTE REVELES on 02/05/20 0948 Apixaban 5 Mg Tablet, 5 MG PO BID, (Reported) LAST FILLED 10-07-2019 #180/90 DAY SUPPLY Ascorbate Calcium 500 Mg Tablet, 500 MG PO DAILY, (Reported) Aspirin 81 Mg Tab.chew, 81 MG PO Q48H Prescribed by: NANNETTE REVELES on 02/05/20945 Baclofen 10 Mg Tablet, 20 MG PO BID, (Reported) TAKES 2 (20MG) TABS Cholecalciferol (Vitamin D3) 25 Mcg Capsule, 25 MCG PO DAILY, (Reported) Doxycycline Hyclate 100 Mg Capsule, 100 MG PO BID Prescribed by: NANNETTE REVELES on 02/05/20945 Dulaglutide 1.5 Mg/0.5 Ml Pen.injctr, 1.5 MG SQ WEEK Prescribed by: NANNETTE REVELES on 02/05/20945 Fluconazole 100 Mg Tablet, 100 MG PO DAILY Prescribed by: NANNETTE REVELES on 02/05/20945 Fluticasone/Salmeterol 12 Gm Hfa.aer.ad, 2 PUFF IH RTBID Prescribed by: NANNETTE REVELES on 02/05/20945 Hydrocodone/Acetaminophen 1 Each Tablet, 1 TAB PO Q6H PRN for PAIN-MODERATE (5- 7) Prescribed by: ISRAEL ODELL on 04/15/20 1705 Insulin NPH Human Isophane 100 Unit/1 Ml Vial, 25 UNIT SQ BID Prescribed by: NANNETTE REVELES on 02/05/20945 Metoprolol Tartrate 50 Mg Tablet, 50 MG PO BID, (Reported) Montelukast Sodium 10 Mg Tablet, 10 MG PO HS, (Reported) Nystatin 15 Gm Cream..g., 0 GM TP TID Prescribed by: NANNETTE REVELES on 02/05/20945 Omeprazole 40 Mg Capsule.dr, 40 MG PO BID, (Reported) Pramipexole Di-HCl 1 Mg Tablet, 1 MG PO 1600, (Reported) TAKES IN THE LATE AFTERNOON Tramadol HCl 100 Mg Tablet, 100 MG PO TID Prescribed by: NANNETTE REVELES on 02/05/20945 Patient Home Medication List Home Medication List Reviewed: Yes Review of Systems Review of Systems Constitutional: see HPI Eyes: See HPI Ears, Nose, Mouth, Throat: no symptoms reported Respiratory: no symptoms reported Cardiovascular: no symptoms reported Gastrointestinal: see HPI Genitourinary: no symptoms reported Musculoskeletal: see HPI Skin: no symptoms reported Psychiatric/Neurological: See HPI Past Sdhnymz-Aosuqg-Rcvhzc Hx Patient Social History Alcohol Use: Denies Use Smoking Status: Never a Smoker 2nd Hand Smoke Exposure: No Recent Infectious Disease Expo: No Recent Hopitalizations: No Immunizations Up To Date Tetanus Booster (TDap): Unknown PED Vaccines UTD: No Date of Pneumonia Vaccine: Apr 04, 2018 Date of Influenza Vaccine: Jan 08, 2020 Seasonal Allergies Seasonal Allergies: Yes Past Medical History Surgeries: Yes (LAP CORNELIUS; C-SPINE FUSION/DISCECTOMY C5-C6 ) Abdominal, Appendectomy, Cardiac, Defibrillator, Eye Surgery, Gallbladder, Hysterectomy, Oophorectomy, Orthopedic, Pacemaker, Tonsillectomy Respiratory: Yes (O2 AT 2L/NC CONTINUOUSLY) Asthma, Pneumonia, Chronic Bronchitis, Sleep Apnea, COPD Currently Using CPAP: No Currently Using BIPAP: No Cardiac: Yes (PACEMAKER/DEFIBRILLATOR;CARDIAC ARREST DURING ENT SURGERY;PSVT/PALPITATIONS) Atrial Fibrillation, Chronic Edema/Swelling, Coronary Artery Disease, High Cholesterol, Hypertension, Irregular Heartbeat Neurological: Yes (PERIPHERAL NEUROPATHY HANDS/FEET; CHRONIC HEADACHES) Headaches /Migraines, Neuropathy, TIA 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 Disorders: No Female 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 PAIN) Degenerate Disk Disease, Arthritis, Fibromyalgia, Chronic Back Pain, Fractures Endocrine: Yes Diabetes, Insulin dep, Diabetes, Non-Insulin dep HEENT: Yes (S/P BILATERAL CATARACT SURGERY + YAG PROCEDURE;ENT SURG WITH CA RDIAC ARREST) Cataract Loss of Vision: Denies Hearing Impairment: Denies Cancer: No Psychosocial: Yes Anxiety, Depression Integumentary: Yes (NELIA INTERTRIGO) Pruritis Blood Disorders: No Adverse Reaction/Blood Tranf: No Family Medical History Alzheimer's disease 19 FATHER Cardiovascular disease 19 FATHER 19 MOTHER Completed stroke 19 MOTHER Hypertension 19 FATHER 19 MOTHER Myocardial infarction 19 FATHER 19 MOTHER No Family History of: Diabetes mellitus PSH: -T12 KYPHOPLASTY -C5-C6 CERVICAL DISCECTOMY WITH FUSION 04/2018 -LAP CORNELIUS FUNDOPLICATION -EGD'S/ESOPHAGEAL DILATIONS/COLONOSCOPIES/POLYPECTOMIES -PACEMAKER/DEFIBRILLATOR -HYSTERECTOMY/BSO -CHOLECYSTECTOMY -APPENDECTOMY -TONSILLECTOMY -OVARIAN CYST SURGERIES X 4 -CYST FROM BACK REMOVED -ENT SURGERY -BILATERAL CARPAL TUNNEL REPAIR -BILATERAL CATARACT SURGERY + YAG PROCEDURE PMH: -CHRONIC NECK PAIN WITH CERVICAL RADICULOPATHY -RESTLESS LEG SYNDROME -CHRONIC BACK PAIN -T12 COMPRESSION WITH KYPHOPLASTY -HAS HAD POST OP RESPIRATORY FAILURE IN PAST -HAD CARDIAC ARREST WITH ENT SURGERY -CAROTID DISEASE--40-50% STENOSIS BILAT ICA -PAROXYSMAL A FIB--HAS REFUSED ORAL ANTICOAGULANTS -HX OF V-FIB AND BRADYCARDIA--S/P PACEMAKER/DEFIBRILLATOR -08/23/19--CARDIAC CATH--NO SIGNIFICANT CORONARY ARTERY DISEASE, EF 50% Physical Exam Vital Signs Vital Signs - First Documented 05/13/20 05/13/20 19:28 21:39 Temp 36.2 Pulse 74 Resp 17 B/P (MAP) 163/95 (117) Pulse Ox 97 O2 Delivery Room Air Capillary Refill : Less Than 3 Seconds Height, Weight, BMI Height: 5'4.00" Weight: 215lbs. 0oz. 97.712776jp; 37.00 BMI Method:Stated General Appearance: WD/WN, no apparent distress HEENT: PERRL/EOMI, normal ENT inspection Neck: full range of motion, supple, normal inspection Cardiovascular: normal peripheral pulses, regular rate, rhythm, no murmur Respiratory: lungs clear, normal breath sounds, no respiratory distress Gastrointestinal: normal bowel sounds, non tender, soft Extremities: normal inspection, normal capillary refill, pedal edema Psychiatric: alert, oriented x 3 Crainal Nerves: normal hearing, normal speech; No abnormal eye position, No facial asymmetry, No facial droop, No facial paresthesias, No facial weakness, No tongue deviation to R, No tongue deviation to L; other (no focal or gross neuroligcal deficits appreciated ) Coordination/Gait: normal finger to nose, normal gait Motor/Sensory: no motor deficit, no sensory deficit Skin: normal color, warm/dry Procedures/Interventions Date of ETT Placement: Apr 21, 2018 Time of ETT Placement: 1744 Progress/Results/Core Measures Results/Orders Lab Results Laboratory Tests Test 05/13/20 20:18 05/13/20 21:00 Range/Units White Blood Count 9.4 4.3-11.0 10^3/uL Red Blood Count 4.34 3.80-5.11 10^6/uL Hemoglobin 12.8 11.5-16.0 g/dL Hematocrit 39 35-52 % Mean Corpuscular Volume 89 80-99 fL Mean Corpuscular Hemoglobin 30 25-34 pg Mean Corpuscular Hemoglobin Concent 33 32-36 g/dL Red Cell Distribution Width 13.2 10.0-14.5 % Platelet Count 226 130-400 10^3/uL Mean Platelet Volume 9.8 9.0-12.2 fL Immature Granulocyte % (Auto) 1 % Neutrophils (%) (Auto) 72 42-75 % Lymphocytes (%) (Auto) 20 12-44 % Monocytes (%) (Auto) 5 0-12 % Eosinophils (%) (Auto) 1 0-10 % Basophils (%) (Auto) 1 0-10 % Neutrophils # (Auto) 6.8 1.8-7.8 10^3/uL Lymphocytes # (Auto) 1.9 1.0-4.0 10^3/uL Monocytes # (Auto) 0.5 0.0-1.0 10^3/uL Eosinophils # (Auto) 0.1 0.0-0.3 10^3/uL Basophils # (Auto) 0.1 0.0-0.1 10^3/uL Immature Granulocyte # (Auto) 0.1 0.0-0.1 10^3/uL Prothrombin Time 13.5 12.2-14.7 SEC INR Comment 1.0 0.8-1.4 Sodium Level 140 135-145 MMOL/L Potassium Level 3.7 3.6-5.0 MMOL/L Chloride Level 105 98-107 MMOL/L Carbon Dioxide Level 23 21-32 MMOL/L Anion Gap 12 5-14 MMOL/L Blood Urea Nitrogen 13 7-18 MG/DL Creatinine 0.82 0.60-1.30 MG/DL Estimat Glomerular Filtration Rate > 60 BUN/Creatinine Ratio 16 Glucose Level 206 H 70-105 MG/DL Calcium Level 8.9 8.5-10.1 MG/DL Corrected Calcium 9.1 8.5-10.1 MG/DL Total Bilirubin 0.2 0.1-1.0 MG/DL Aspartate Amino Transf (AST/SGOT) 25 5-34 U/L Alanine Aminotransferase (ALT/SGPT) 26 0-55 U/L Alkaline Phosphatase 97 40-136 U/L Total Protein 6.4 6.4-8.2 GM/DL Albumin 3.8 3.2-4.5 GM/DL Urine Color YELLOW Urine Clarity CLEAR Urine pH 5.5 5-9 Urine Specific [place] >=1.030 1.016-1.022 Urine Protein NEGATIVE NEGATIVE Urine Glucose (UA) 1+ H NEGATIVE Urine Ketones NEGATIVE NEGATIVE Urine Nitrite NEGATIVE NEGATIVE Urine Bilirubin NEGATIVE NEGATIVE Urine Urobilinogen 0.2 < = 1.0 MG/DL Urine Leukocyte Esterase NEGATIVE NEGATIVE Urine RBC (Auto) NEGATIVE NEGATIVE Urine RBC NONE /HPF Urine WBC 5-10 H /HPF Urine Squamous Epithelial Cells 5-10 /HPF Urine Crystals NONE /LPF Urine Calcium Oxalate Crystals RARE H /LPF Urine Bacteria TRACE /HPF Urine Casts NONE /LPF Urine Mucus SMALL H /LPF Urine Culture Indicated NO My Orders Orders - MANASA CUELLAR PORT PURSER Ct Head Wo (05/13/20 20:08) Hydromorphone Injection (Dilaudid Inject (05/13/20 20:15) Diphenhydramine Injection (Benadryl Inje (05/13/20 20:15) Promethazine Injection (Phenergan Injec (05/13/20 20:15) Cbc With Automated Diff (05/13/20 20:10) Protime With Inr (05/13/20 20:10) Comprehensive Metabolic Panel (05/13/20 20:10) Ua Culture If Indicated (05/13/20 20:10) Ed Iv/Invasive Line Start (05/13/20 20:59) Medications Given in ED Vital Signs/I&O 05/13/20 05/13/20 19:28 21:39 Temp 36.2 Pulse 74 63 Resp 17 17 B/P (MAP) 163/95 (117) 151/77 Pulse Ox 97 O2 Delivery Room Air Room Air Blood Pressure Mean: 117 Progress Progress Note : Progress Note Pt. examined and in no acute distress. With her history of DVT/PE, Eliquis, and atypical migraine presentation from her usual and weakness, will order CT head to r/o any stroke/bleed. Basic labs and UA ordered to evaluate any infectious causes such as UTI for generalized weakness. Does admit to not sleeping well due to her chronic fibromyalgia, but states her PCP is titrating Lyrica to see if this will improve her symptoms. Labs reviewed and are unremarkable. CT head neg for acute pathology. States max doses of Toradol, Benadryl, and Phenergan/Compazine has helped her in the past. Discussed that we could not utilize Toradol due to her Eliquis. Offered F entanyl, Phenergan, and Benadryl. Reports that Fentanyl is not very effective, which is why she typically uses Toradol. Has been successfully treated with Demerol in past. Orders placed for dilaudid 0.5mg, Phenergan 25mg IVP, and Benadryl 25mg IVP. Apx. 10-15 minutes after receiving medication she was noted to be resting comfortably. Reviewed discharge plan and follow up with her PCP for her chronic migraines. Verbalized understanding. Diagnostic Imaging Diagonstic Imaging: CT Plain Films/CT/US/NM/MRI: head Comments NAME: BRAYDON ARBOLEDA [facility] REC#: [id number] PT STATUS: REG ER : 1945 PHYSICIAN: MANASA CUELLAR APRN ADMIT DATE: 05/13/20/ER Draft Date of Exam:05/13/20 CT HEAD WO PROCEDURE: CT head without contrast. TECHNIQUE: Multiple contiguous axial images were obtained through the brain without the use of intravenous contrast. Auto Exposure Controls were utilized during the CT exam to meet ALARA standards for radiation dose reduction. DATE: May 13, 2020. COMPARISON: CT head and cervical spine March 15, 2020. INDICATION: 74-year-old female, sudden onset headache. FINDINGS: There is proportional prominence of the ventricles and additional CSF spaces consistent with severe cerebral volume loss. There is no mass effect or midline shift. There is no acute intracranial hemorrhage. There is no abnormal extra-axial fluid collection. The visualized portions of the paranasal sinuses, mastoid air cells and middle ears are well aerated. IMPRESSION: 1. No identified acute intracranial abnormality. 2. Severe cerebral volume loss. Dictated on workstation # [id number] Dict: 05/13/202029 Trans: 05/13/202032 [facility] [id number] Interpreted by: JORGE BOYD MD Electronically signed by: Reviewed: Reviewed by Me Departure Impression Primary Impression: Migraine Disposition: 01 HOME, SELF-CARE Condition: Improved Departure-Patient Inst. Decision time for Depature: 21:16 Referrals: NANNETTE REVELES DO (PCP/Family) Primary Care Physician Patient Instructions: Migraines (DC) Add. Discharge Instructions: Plan: 1. Discharge home. 2. Follow up with your primary care provider next week. 3. Return for any new, concerning, or worsening symptoms. All discharge instructions reviewed with patient and/or family. Voiced underst anding. MANASA CUELLAR PORT PURSER May 13, 2020 20:13
[2020-05-13] MEDS ORDERED: HYDROmorphone 2 MG/ML VIAL (DILAUDID) IV ONE (20:15)
[2020-05-13] MEDS ORDERED: PROMETHAZINE INJ 25 MG/ML (PHENERGAN) AMP IVP ONE (20:15)
[2020-05-13] MEDS ORDERED: diphenhydrAMINE 50 MG/ML INJ (BENADRYL) IVP ONE (20:15)
[2020-05-13 20:26] LABS: BASOPHILS # (AUTO) 0.1 10^3/uL (0.0-0.1); BASOPHILS % (AUTO) 1 % (0-10); EOSINOPHILS # (AUTO) 0.1 10^3/uL (0.0-0.3); EOSINOPHILS % (AUTO) 1 % (0-10); HEMATOCRIT 39 % (35-52); HEMOGLOBIN 12.8 g/dL (11.5-16.0); LYMPHOCYTES # (AUTO) 1.9 10^3/uL (1.0-4.0); LYMPHOCYTES % (AUTO) 20 % (12-44); MEAN CORPUSCULAR HEMOGLOBIN 30 pg (25-34); MEAN CORPUSCULAR HGB CONC 33 g/dL (32-36); MEAN CORPUSCULAR VOLUME 89 fL (80-99); MEAN PLATELET VOLUME 9.8 fL (9.0-12.2); MONOCYTES # (AUTO) 0.5 10^3/uL (0.0-1.0); MONOCYTES % (AUTO) 5 % (0-12); NEUTROPHILS # (AUTO) 6.8 10^3/uL (1.8-7.8); NEUTROPHILS % (AUTO) 72 % (42-75); PLATELET COUNT 226 10^3/uL (130-400); WHITE BLOOD COUNT 9.4 10^3/uL (4.3-11.0)
--- NOTE | 2020-05-13 20:33 | Diagnostic Imaging Report ---
PROCEDURE: CT head without contrast. TECHNIQUE: Multiple contiguous axial images were obtained through the brain without the use of intravenous contrast. Auto Exposure Controls were utilized during the CT exam to meet ALARA standards for radiation dose reduction. DATE: May 13, 2020. COMPARISON: CT head and cervical spine March 15, 2020. INDICATION: 74-year-old female, sudden onset headache. FINDINGS: There is proportional prominence of the ventricles and additional CSF spaces consistent with severe cerebral volume loss. There is no mass effect or midline shift. There is no acute intracranial hemorrhage. There is no abnormal extra-axial fluid collection. The visualized portions of the paranasal sinuses, mastoid air cells and middle ears are well aerated. IMPRESSION: 1. No identified acute intracranial abnormality. 2. Severe cerebral volume loss. Dictated by: Dictated on workstation # [id number]
[2020-05-13 20:38] LABS: PROTHROMBIN TIME PATIENT 13.5 SEC (12.2-14.7)
[2020-05-13 20:46] LABS: ALANINE AMINOTRANSFERASE 26 U/L (0-55); ALBUMIN 3.8 GM/DL (3.2-4.5); ALKALINE PHOSPHATASE 97 U/L (40-136); BILIRUBIN,TOTAL 0.2 MG/DL (0.1-1.0); BUN/CREATININE RATIO 16; CALCIUM 8.9 MG/DL (8.5-10.1); CARBON DIOXIDE 23 MMOL/L (21-32); CHLORIDE 105 MMOL/L (98-107); CREATININE SERUM 0.82 MG/DL (0.60-1.30); GFR ESTIMATED > 60; GLUCOSE 206 MG/DL (70-105); POTASSIUM 3.7 MMOL/L (3.6-5.0); SODIUM 140 MMOL/L (135-145); TOTAL PROTEIN 6.4 GM/DL (6.4-8.2)
[2020-05-13 21:15] LABS: BILIRUBIN,URINE NEGATIVE (NEGATIVE); CLARITY,URINE CLEAR; COLOR,URINE YELLOW; GLUCOSE, URINE (UA) 1+ (NEGATIVE); KETONES,URINE NEGATIVE (NEGATIVE); LEUKOCYTE ESTERASE ,URINE NEGATIVE (NEGATIVE); NITRITE,URINE NEGATIVE (NEGATIVE); PH,URINE 5.5 (5-9); PROTEIN,URINE NEGATIVE (NEGATIVE)
[2020-05-13 21:23] LABS: BACTERIA,URINE TRACE /HPF; CALCIUM OXALATE CRYSTALS,UR RARE /LPF
[2020-05-13 21:39] VITALS: BP 151/77
== END 2020-05-13 21:39 | disposition home or self-care (01) ==
LOC: EDUNIT# 18:30 → ER 18:32
DX: G43.709 Chronic migraine without aura, not intractable, without status migrainosus (principal); E11.42 Type 2 diabetes mellitus with diabetic polyneuropathy; I48.91 Unspecified atrial fibrillation; I25.10 Atherosclerotic heart disease of native coronary artery without angina pectoris; I10 Essential (primary) hypertension; M79.7 Fibromyalgia; F41.9 Anxiety disorder, unspecified; F32.9 Major depressive disorder, single episode, unspecified; J44.9 Chronic obstructive pulmonary disease, unspecified; Z86.16 Personal history of COVID-19; Z87.81 Personal history of (healed) traumatic fracture; Z86.74 Personal history of sudden cardiac arrest; Z86.711 Personal history of pulmonary embolism; Z86.718 Personal history of other venous thrombosis and embolism; Z79.01 Long term (current) use of anticoagulants; Z95.810 Presence of automatic (implantable) cardiac defibrillator; Z87.01 Personal history of pneumonia (recurrent); Z99.81 Dependence on supplemental oxygen; Z86.73 Personal history of transient ischemic attack (TIA), and cerebral infarction without residual deficits; Z86.010 Personal history of colon polyps; Z79.4 Long term (current) use of insulin; Z88.0 Allergy status to penicillin; Z88.2 Allergy status to sulfonamides; Z88.6 Allergy status to analgesic agent; Z88.8 Allergy status to other drugs, medicaments and biological substances; Z79.82 Long term (current) use of aspirin; Z79.51 Long term (current) use of inhaled steroids
CPT/HCPCS: 36415; 70450; 80053; 81000; 85025; 85610

== ENCOUNTER → 2020-06-06 | Outpatient (CLI) | payer MEDICARE ==
--- NOTE | 2020-06-06 12:36 | Diagnostic Imaging Report ---
PROCEDURE: US right lower extremity venous. TECHNIQUE: Multiple real-time grayscale images were obtained over the right lower extremity in various projections. Additional spectral analysis and color Doppler duplex images were also obtained. INDICATION: Right lower extremity swelling. FINDINGS: There is no evidence of right lower extremity DVT. Right lower extremity deep venous system demonstrates normal compressibility with normal response to augmentation and Valsalva. No fluid collection or mass is detected. IMPRESSION: No evidence of right lower extremity DVT. Dictated by: Dictated on workstation # [id number]
== END ==
LOC: RAD 10:53
PROVIDERS: ATTEND Family Medicine
DX: M79.89 Other specified soft tissue disorders (principal); Z86.718 Personal history of other venous thrombosis and embolism

== ENCOUNTER 2020-06-21 11:49 | Day surgery (SDC) | payer MEDICARE, MEDICAID ==
[2020-06-21] VITALS (12 sets, daily range): BP systolic 107–154; BP diastolic 59–118
[~2020-06-21] VITALS: Ht 167 cm; Wt 98.0 kg
[2020-06-21] MEDS ORDERED: LIDOCAINE 1% INJ 20 ML 20 ML VIAL ONE (11:55)
[2020-06-21] MEDS ORDERED: HEParin (CATH LAB) 1,000 ML IV ONE (11:55)
[2020-06-21] MEDS ORDERED: NS IV 1000 ML 1,000 ML ONE (11:55)
[2020-06-21] MEDS ORDERED: VANCOMYCIN INJECTION 1,000 MG in NS (IVPB) 250 ML IV ONE (12:15)
[2020-06-21] MEDS ORDERED: NS IV 1000 ML 1,000 ML IV SCH ×2 (12:15→16:45)
[2020-06-21] MEDS ORDERED: BACITRACIN INJECTION 50,000 UNIT, SODIUM CHLORIDE 0.9% IRRIGATIO 500 ML IR ONE ×2 (12:15)
[2020-06-21] MEDS ORDERED: NS IV 1000 ML 1,000 ML IV ONE (12:15)
[2020-06-21 12:41] LABS: HEMOGLOBIN 13.5 g/dL (11.5-16.0); WHITE BLOOD COUNT 7.7 10^3/uL (4.3-11.0)
[2020-06-21] MEDS ORDERED: FURO20TA4 PO (12:44)
[2020-06-21] MEDS ORDERED: NPH,100V SQ (12:44)
[2020-06-21] MEDS ORDERED: CEPH500C PO (12:44)
[2020-06-21] MEDS ORDERED: VITA400C60 PO (12:44)
[2020-06-21] MEDS ORDERED: POTA10TA36 PO (12:44)
[2020-06-21 12:52] LABS: INR 0.9 (0.8-1.4); PROTHROMBIN TIME PATIENT 12.9 SEC (12.2-14.7)
[2020-06-21 13:01] LABS: ALANINE AMINOTRANSFERASE 29 U/L (0-55); ALBUMIN 4.1 GM/DL (3.2-4.5); ALKALINE PHOSPHATASE 95 U/L (40-136); BILIRUBIN,TOTAL 0.5 MG/DL (0.1-1.0); BUN/CREATININE RATIO 16; CALCIUM 9.2 MG/DL (8.5-10.1); CARBON DIOXIDE 22 MMOL/L (21-32); CHLORIDE 105 MMOL/L (98-107); CHOLESTEROL 203 MG/DL (< 200); CREATININE SERUM 0.81 MG/DL (0.60-1.30); GFR ESTIMATED > 60; GLUCOSE 130 MG/DL (70-105); HDL CHOLESTEROL 48 MG/DL (40-60); POTASSIUM 3.9 MMOL/L (3.6-5.0); SODIUM 142 MMOL/L (135-145); TOTAL PROTEIN 7.2 GM/DL (6.4-8.2); TRIGLYCERIDES 123 MG/DL (<150); VLDL CHOLESTEROL 25 MG/DL (5-40)
[2020-06-21] MEDS ORDERED: methylPREDNISolone 125 MG (Solu-MEDROL) VIAL ONE (13:58)
[2020-06-21] MEDS ORDERED: diphenhydrAMINE 50 MG/ML INJ (BENADRYL) ONE (13:58)
[2020-06-21] MEDS ORDERED: methylPREDNISolone 125 MG (Solu-MEDROL) VIAL IVP ONE (14:15)
[2020-06-21] MEDS ORDERED: diphenhydrAMINE 50 MG/ML INJ (BENADRYL) IVP ONE (14:15)
[2020-06-21] MEDS ORDERED: ceFAZolin INJECTION 1,000 MG ONE ×2 (14:57→22:08)
[2020-06-21] MEDS ORDERED: MIDAZOLAM 5 MG/5 ML (VERSED) VIAL ONE ×2 (15:03→15:43)
[2020-06-21] MEDS ORDERED: fentaNYL INJ 100 MCG/2 ML AMP ONE (15:03)
--- NOTE | 2020-06-21 15:40 | Cardiac Procedure Note-CS/ASA ---
Pre-Procedure Note Pre-Op Procedure Note H&P Reviewed The H&P was reviewed, patient examined and no changes noted. Date H&P Reviewed: Jun 21, 2020 Time H&P Reviewed: 15:39 Conscious Sedation Pre-Proced Time 15:39 ASA Score 3 For ASA 3 and 4: Consider anesthesia and medical clearance. Also, for patients with a history of failed moderate sedation consider anesthesia. Airway Lungs Heart ASA score ASA 1: a normal healthy patient ASA 2: a patient with a mild systemic disease (mid diabetes, controlled hypertension, obesity ASA 3: a patient with a severe systemic disease that limits activity (angina, COPD, prior Myocardial infarction) ASA 4: a patient with an incapacitating disease that is a constant threat to life (CHF, renal failure) ASA 5: a moribund patient not expected to survive 24 hrs. (ruptured aneurysm) ASA 6: a declared brain- patient whose organs are being harvested. For emergent operations, add the letter E after the classification Mallampati Classification Grade 3 Sedation Plan Analgesia, Amnesia, Plan communicated to team members, Discussed options with patient/fam, Discussed risks with patient/fam The patient is an appropriate candidate to undergo the planned procedure, sedation, and anesthesia. The patient immediately re-assessed prior to indication. ULI YOO MD FACP FAC CCDS Jun 21, 2020 15:40
[2020-06-21] MEDS ORDERED: PATIENT MAY USE OWN MEDS, ALL PO SCH (16:45)
--- NOTE | 2020-06-21 16:46 | Discharge Inst-Cardiology ---
Discharge Inst-Cardiac Discharge Medications Continued Medications: Acetaminophen (Acetaminophen) 500 Mg Tablet 1000 MG PO Q6H PRN for PAIN-MILD (1-4) OR TEMPATURE, #30 TAB Apixaban (Eliquis) 5 Mg Tablet 5 MG PO BID, TAB LAST FILLED 10-07-2019 #180/90 DAY SUPPLY Baclofen (Baclofen) 10 Mg Tablet 20 MG PO BID, TAB TAKES 2 (20MG) TABS Cephalexin (Cephalexin) 500 Mg Capsule 500 MG PO TID, CAP Cholecalciferol (Vitamin D3) (Vitamin D3) 25 Mcg Capsule 25 MCG PO DAILY, CAP Furosemide (Furosemide) 20 Mg Tablet 20 MG PO DAILY, TAB Insulin NPH Human Isophane (Humulin N) 100 Unit/1 Ml Vial 30 UNIT SQ BID, #30 VIAL Melatonin (Melatonin) 10 Mg Tablet 10 MG PO, TAB Metoprolol Tartrate (Metoprolol Tartrate) 50 Mg Tablet 50 MG PO BID, TAB Nystatin (Nystatin) 15 Gm Cream..g. 0 GM TP TID, #30 TUBE Omeprazole (Omeprazole) 40 Mg Capsule.dr 40 MG PO BID, CAP Potassium Chloride (Potassium Chloride) 10 Meq Tab.er.prt 10 MEQ PO DAILY Pramipexole Di-HCl (Pramipexole Dihydrochloride) 1 Mg Tablet 1 MG PO 1600, TAB TAKES IN THE LATE AFTERNOON Vitamin E Acetate (Vitamin E) 400 Unit Capsule 400 UNIT PO DAILY, CAP Patient Instructions Patient Instructions: Follow up for wound check at Dr Cerda's on Saturday06/24/20 Follow up office visit with Dr Cerda in one month Hold Eliquis for 24 hours and then resume previous dose (start tomorrow evening) ULI CERDA MD FACP FAC CCDS Jun 21, 2020 16:46
--- NOTE | 2020-06-21 17:01 | Diagnostic Imaging Report ---
INDICATION: AICD replacement. Frontal chest obtained at 05:49 p.m. and compared to 03/18/2020. The heart is enlarged. AICD device is in place. There is no pneumothorax or pleural fluid. There is no focal infiltrate. IMPRESSION: Cardiomegaly with no acute abnormality in the chest. Dictated by: Dictated on workstation # [id number]
[2020-06-21] MEDS ORDERED: WATER (STERILE) FOR INJECTION 10 ML ONE (22:08)
[2020-06-21] MEDS ORDERED: ceFAZolin INJECTION 1,000 MG in WATER (STERILE) FOR INJECTION 10 ML IV ONE (22:15)
[2020-06-22] VITALS: BP 126/65
--- NOTE | 2020-06-22 02:32 | OPERATIVE REPORT ---
DATE OF SERVICE: 06/21/2020 PREOPERATIVE DIAGNOSIS: Dual chamber defibrillator at end of life. POSTOPERATIVE DIAGNOSIS: Dual chamber defibrillator at end of life. PROCEDURE: Dual chamber ICD pulse generator change. INDICATIONS: The patient is a 75-year-old lady who has a dual-chamber defibrillator in place because of a history of cardiac arrest and sudden cardiac . The defibrillator had reached end of life. It had reached elective replacement indicator. It was changed out today after having obtained an informed consent. DESCRIPTION OF PROCEDURE: She was brought to the cardiac catheterization laboratory in a fasting state. The left prepectoral area was prepped and draped in the usual sterile fashion. A 1% lidocaine used for local anesthesia, sharp and blunt dissection were used to open the device pocket and the device was removed from the pocket and detached from the leads. The pocket was thoroughly irrigated with an antibiotic solution. The previous leads were attached to a new defibrillator and the device was then placed back into the pocket and the pocket was closed in 2 layers using 3-0 Vicryl. The device removed is Fortify [id number] with a serial #[id number]. The new device is Fortify [id number] with a serial #[id number]. The patient tolerated the procedure well. Job ID: [id number] DocumentID: [id number] Dictated Date: 06/21/2020 16:40:35 Collection Technician Date: 06/22/2020 02:31:45 Dictated By: ULI YOO MD, MA, FACP, FACC,
[2020-06-22 04:00] VITALS: BP 135/75
[2020-06-22 07:08] VITALS: BP 130/67
--- NOTE | 2020-06-22 16:55 | Progress Note - Cardiology ---
Cardiology SOAP Progress Note Subjective: Was experiencing headache (same as her chronic headaches) and nausea and gen malaise last night. These symptoms have now resolved Denies cp or palp or syncope or shortness of breath at rest No discomfort at site of device placement Wishes to go home today Objective: I&O/Vital Signs 06/22/20 06/22/20 06/22/20 06/22/20 06:59 07:08 08:00 12:00 Temp 36.8 Pulse 60 68 Resp 16 B/P (MAP) 130/67 (88) Pulse Ox 95 95 O2 Delivery Nasal Cannula Nasal Cannula O2 Flow Rate 2.00 2.00 06/22/20 00:00 Intake Total 1230 ml Balance 1230 ml Weight (Pounds): 215 Weight (Ounces): 0 Weight (Calculated Kilograms): 97.881420 Device Insertion Site: without hematoma Swelling: mild amount of swelling Bruising: mild bruising Constitutional: AAO x 3, well-developed, well-nourished Respiratory: No accessory muscle use; other (fair to good, bilateral air entry) Cardiovascular: regular rate-rhythm, S1 and S2, systolic murmur (soft WOLF at card base) Gastrointestional: No tender; soft; No guarding, No rebound; audible bowel sounds Extremities: No clubbing, No cyanosis, No significant edema Neurologic/Psychiatric: oriented x 3, other (moves all her limbs equally) Skin: warm/dry; No cyanosis, No cool, No diaphoresis, No rash on exposed areas, No ulcerations on exposed areas Results/Procedures: Labs Microbiology 06/21/20 MRSA Screen - Final, Complete MRSA not isolated A/P: Assessment: History of perioperative bradycardia (asystole) and tachycardia (ventricular fibrillation). This has been treated with dual chamber pacemaker defibrillator implantation that reached GAURAV in Jun 2020 - The ventricular lead threshold, stable for years, has risen since her bouts of Covid-19 in 2019, impedance is normal (both pacing and shocking), she does not pace in the ventricle - s/p pulse gen change on 06/22/19 DVT and bilat PE in Feb 2020 Dizziness, gen weakness, shortness of breath, and malaise of undetermined etiology (present since early 2019) Last cath on 09/22/19 (following MPI of 09/15/19 that showed apical ischemia): no angiographically significant CAD, LVEF 50%, LVEDP 14 mmHg PAF with RVR for which she had initially refused OAC, but has been taking OAC regularly since her DVT and PE of Feb 2020 S/p spinal fusion surgery and h/o post-op resp failure Echo of 01/29/20 (Dr Perez): LVEF 55-65%, dilated R atrium, mild AoV sclerosis w/o stenosis, PASP 50-55 mmHg Chronic pain: chronic migraine headaches, chronic body pains and fibromyalgia. 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 Dr Saleem following and has diagnosed restrictive lung disease Bilateral intermittent leg swelling, chronic. Venous insuff study of 02/15/16 did not show DVT or reflux in the deep venous system or valvular insuff of greater or small saphenous system or AASV Less than 40% DANIELLE stenosis, 40-59% LICA stenosis on carotid u/s of 02/03/16. U/S of August 2018 showed less than 40% bilat ICA stenoses Plan: * I discussed her CV issues with her * We also discussed wound care * Outpt f/u advised * Questions answered ULI YOO MD FACP [facility] CCDS Jun 22, 2020 16:55
== END 2020-06-22 12:00 | disposition home or self-care (01) ==
LOC: CATH 11:49 → CSD 16:56 → CATH 06-22 12:00
PROVIDERS: ATTEND Internal Medicine Cardiovascular Disease
DX: Z45.010 Encounter for checking and testing of cardiac pacemaker pulse generator [battery] (principal); F41.9 Anxiety disorder, unspecified; G47.33 Obstructive sleep apnea (adult) (pediatric); G47.10 Hypersomnia, unspecified; J45.909 Unspecified asthma, uncomplicated; I48.0 Paroxysmal atrial fibrillation; G89.4 Chronic pain syndrome; E11.9 Type 2 diabetes mellitus without complications; Z79.4 Long term (current) use of insulin; I51.7 Cardiomegaly; I65.23 Occlusion and stenosis of bilateral carotid arteries; G47.36 Sleep related hypoventilation in conditions classified elsewhere; E66.9 Obesity, unspecified; Z68.35 Body mass index [BMI] 35.0-35.9, adult; Z79.51 Long term (current) use of inhaled steroids; Z79.01 Long term (current) use of anticoagulants; Z79.899 Other long term (current) drug therapy; Z88.0 Allergy status to penicillin; Z88.2 Allergy status to sulfonamides; Z88.5 Allergy status to narcotic agent; Z88.1 Allergy status to other antibiotic agents; Z88.8 Allergy status to other drugs, medicaments and biological substances
CPT/HCPCS: 33263; 36415; 71045; 80053; 80061; 85027; 85610; 85730; 87081

== ENCOUNTER 2020-07-18 11:18 | Emergency (ER) | payer MEDICARE, MEDICAID ==
[~2020-07-18] VITALS: Ht 162.5 cm; Wt 94.3 kg
[~2020-07-18 11:18] MED LIST changes: +FURO20TA4 PO; +POTA10TA36 PO; +VITA400C60 PO
[2020-07-18] MEDS ORDERED: PROMETHAZINE INJ 25 MG/ML (PHENERGAN) AMP IM/IV ONE (12:15)
--- NOTE | 2020-07-18 12:19 | ED Headache ---
General Chief Complaint: Head/Cervical Problems Stated Complaint: MIGRAINE Nursing Triage Note: Pt ambulatory with cane. Pt reports having a migraine for four weeks. Pt reports taking beta kriss for migraines with no relief. Pt reports seeing Dr. Reid during this time and nothing was done regarding migraine. Pt reports nausea and light sensitivity, and that symptoms have worsened since midnight. Pt reports taking Eliquis and cannot take Toradol but that IV Dilaudid works well. Nursing Sepsis Screen: No Definite Risk Source: patient Exam Limitations: no limitations (NIMISHA KRISHNAN MED STUDENT) History of Present Illness Date Seen by Provider: July 18, 2020 Time Seen by Provider: 11:51 Initial Comments 75 y/o female with PMHx of chronic migraines, DM, dilated cardiomyopathy, afib, asthma and COPD presents to ED for migraine onset 1 month ago. Patient states pain is a L sided pressure that has been fluctuating over the past month with recent radiation to R side and intensifying over the last 3 days. She complains of associated nausea, spots in her vision and exhaustion likely from inability to sleep secondary to sx. Pain is exacerbated by light and sound, alleviated by darkness and "gospel/calming music". Patient reports pain has been interrupting her normal mentation. She took Tyelenol yesterday morning with no relief, currently on Eliquis. Reports chronic episodic dizziness, denies CP, abnormal SOB, palpitations, vomiting, diarrhea, syncope, numbness or tingling. (NIMISHA KRISHNAN MED STUDENT) Allergies and Home Medications Allergies Coded Allergies: Penicillins (Unverified Allergy, Severe, Pt has received Cefepime & Ceftriaxone in the past w/o issue, 09/22/19) SWELLING, RASH, ITCHING vancomycin (Verified Allergy, Severe, Nausea, 06/21/20) COUGH, THROAT FEELING TIGHT Sulfa (Sulfonamide Antibiotics) (Verified Allergy, Mild, 09/22/19) RASH aspirin (Verified Adverse Reaction, Mild, ASPIRIN SENSITIVE, 09/22/19) UPSET STOMACH sumatriptan (Verified Adverse Reaction, Mild, PALPITATIONS, 09/22/19) IRRITABLE Home Medications Acetaminophen 500 Mg Tablet, 1,000 MG PO Q6H PRN for PAIN-MILD (1-4) OR TEMPATURE Prescribed by: NANNETTE REID on 02/05/20 0946 Apixaban 5 Mg Tablet, 5 MG PO BID, (Reported) LAST FILLED 10-07-2019 #180/90 DAY SUPPLY Baclofen 10 Mg Tablet, 20 MG PO BID, (Reported) TAKES 2 (20MG) TABS Cephalexin 500 Mg Capsule, 500 MG PO TID, (Reported) Cholecalciferol (Vitamin D3) 25 Mcg Capsule, 25 MCG PO DAILY, (Reported) Furosemide 20 Mg Tablet, 20 MG PO DAILY, (Reported) Insulin NPH Human Isophane 100 Unit/1 Ml Vial, 30 UNIT SQ BID Prescribed by: TAWANDA DRAKE on 06/21/20 1244 Metoprolol Tartrate 50 Mg Tablet, 50 MG PO BID, (Reported) Nystatin 15 Gm Cream..g., 0 GM TP TID Prescribed by: NANNETTE REID on 02/05/20 0946 Omeprazole 40 Mg Capsule.dr, 40 MG PO BID, (Reported) Potassium Chloride 10 Meq Tab.er.prt, 10 MEQ PO DAILY, (Reported) Pramipexole Di-HCl 1 Mg Tablet, 1 MG PO 1600, (Reported) TAKES IN THE LATE AFTERNOON Vitamin E Acetate 400 Unit Capsule, 400 UNIT PO DAILY, (Reported) Patient Home Medication List Home Medication List Reviewed: Yes (MANASA CUELLAR [employer]) Review of Systems Review of Systems Constitutional: dizziness (chronic); No fever; weakness (stamina) Eyes: Denies Blindness; Photophobia, Vision Changes (seeing light spots) Ears, Nose, Mouth, Throat: denies ear pain, denies ear discharge Respiratory: No cough, No short of breath (none beyond baseline) Cardiovascular: No chest pain, No palpitations, No syncope Gastrointestinal: No abdominal pain, No constipation Musculoskeletal: No back pain, No joint pain Skin: No change in color, No rash Psychiatric/Neurological: Anxiety, Headache (NIMISHA KRISHNAN STUDENT) Constitutional: see HPI Eyes: See HPI (MANASA [employer]UELL[employer] TECH[employer]) Past Dfukebv-Hiopje-Jqsgho Hx Patient Social History Alcohol Use: Denies Use 2nd Hand Smoke Exposure: No Recent Infectious Disease Expo: No Recent Hopitalizations: No (NIMISHA KRISHNAN) Immunizations Up To Date Tetanus Booster (TDap): Unknown PED Vaccines UTD: No Date of Pneumonia Vaccine: Apr 04, 2018 Date of Influenza Vaccine: Jan 08, 2020 (NIMISHA KRISHNAN STUDENT) Seasonal Allergies Seasonal Allergies: Yes (NIMISHA KRISHNAN STUDENT) Past Medical History Surgeries: Yes (LAP CORNELIUS; C-SPINE FUSION/DISCECTOMY C5-C6 ) Abdominal, Appendectomy, Cardiac, Defibrillator, Eye Surgery, Gallbladder, Hysterectomy, Oophorectomy, Orthopedic, Pacemaker, Tonsillectomy Respiratory: Yes (O2 AT 2L/NC CONTINUOUSLY) Asthma, Pneumonia, Chronic Bronchitis, Sleep Apnea, COPD Currently Using CPAP: No Currently Using BIPAP: No Cardiac: Yes (PACEMAKER/DEFIBRILLATOR;CARDIAC ARREST DURING ENT SURGERY;PSVT/PALPITATIONS) Atrial Fibrillation, Chronic Edema/Swelling, Coronary Artery Disease, High Cholesterol, Hypertension, Irregular Heartbeat Neurological: Yes (PERIPHERAL NEUROPATHY HANDS/FEET; CHRONIC HEADACHES) Headaches /Migraines, Neuropathy, TIA 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 Disorders: No Female 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 Disorders: 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 PAIN) Degenerate Disk Disease, Arthritis, Fibromyalgia, Chronic Back Pain, Fractures Endocrine: Yes Diabetes, Insulin dep, Diabetes, Non-Insulin dep HEENT: Yes (S/P BILATERAL CATARACT SURGERY + YAG PROCEDURE;ENT SURG WITH CARDIAC ARREST) Cataract Loss of Vision: Denies Hearing Impairment: Denies Cancer: No Psychosocial: Yes Anxiety, Depression Integumentary: Yes (NELIA INTERTRIGO) Pruritis Blood Disorders: No Adverse Reaction/Blood Tranf: No (NIMISHA KRISHNAN STUDENT) Family Medical History Alzheimer's disease 19 FATHER Cardiovascular disease 19 FATHER 19 MOTHER Completed stroke 19 MOTHER Hypertension 19 FATHER 19 MOTHER Myocardial infarction 19 FATHER 19 MOTHER No Family History of: Diabetes mellitus PSH: -T12 KYPHOPLASTY -C5-C6 CERVICAL DISCECTOMY WITH FUSION 04/2018 -LAP CORNELIUS FUNDOPLICATION -EGD'S/ESOPHAGEAL DILATIONS/COLONOSCOPIES/POLYPECTOMIES -PACEMAKER/DEFIBRILLATOR -HYSTERECTOMY/BSO -CHOLECYSTECTOMY -APPENDECTOMY -TONSILLECTOMY -OVARIAN CYST SURGERIES X 4 -CYST FROM BACK REMOVED -ENT SURGERY -BILATERAL CARPAL TUNNEL REPAIR -BILATERAL CATARACT SURGERY + YAG PROCEDURE PMH: -CHRONIC NECK PAIN WITH CERVICAL RADICULOPATHY -RESTLESS LEG SYNDROME -CHRONIC BACK PAIN -T12 COMPRESSION WITH KYPHOPLASTY -HAS HAD POST OP RESPIRATORY FAILURE IN PAST -HAD CARDIAC ARREST WITH ENT SURGERY -CAROTID DISEASE--40-50% STENOSIS BILAT ICA -PAROXYSMAL A FIB--HAS REFUSED ORAL ANTICOAGULANTS -HX OF V-FIB AND BRADYCARDIA--S/P PACEMAKER/DEFIBRILLATOR -08/23/19--CARDIAC CATH--NO SIGNIFICANT CORONARY ARTERY DISEASE, EF 50% (NIMISHA KRISHNAN MED STUDENT) Physical Exam Vital Signs Vital Signs - First Documented 07/18/20 11:26 Temp 35.4 Pulse 63 Resp 16 B/P (MAP) 144/91 (108) Pulse Ox 94 O2 Delivery Room Air (MANASA CUELLAR APRN) Vital Signs Capillary Refill : Less Than 3 Seconds (NIMISHA KRISHNAN MED STUDENT) Height, Weight, BMI Height: 5'4.00" Weight: 215lbs. 0oz. 97.868822ly; 35.00 BMI Method:Stated General Appearance: WD/WN, no apparent distress HEENT: PERRL/EOMI, pharynx normal Neck: non-tender, normal inspection Cardiovascular: normal peripheral pulses, regular rate, rhythm Respiratory: chest non-tender, normal breath sounds, no respiratory distress, no accessory muscle use Gastrointestinal: non tender, soft, no pulsatile mass Back: no CVA tenderness, no vertebral tenderness Extremities: non-tender, no calf tenderness, normal capillary refill Psychiatric: alert, oriented x 3 Crainal Nerves: normal hearing, normal speech, PERRL Coordination/Gait: normal finger to nose Motor/Sensory: no motor deficit, no sensory deficit Skin: normal color, warm/dry Lymphatic: no adenopathy (NIMISHA KRISHNAN MED STUDENT) General Appearance: WD/WN, no apparent distress HEENT: PERRL/EOMI, normal ENT inspection, pharynx normal Neck: full range of motion, normal inspection Cardiovascular: regular rate, rhythm, no murmur Respiratory: lungs clear, normal breath sounds, no respiratory distress Gastrointestinal: normal bowel sounds, non tender, soft Extremities: normal range of motion, normal inspection Psychiatric: alert, oriented x 3 Crainal Nerves: normal speech, PERRL Motor/Sensory: no motor deficit, no sensory deficit Skin: normal color, warm/dry (MANASA CUELLAR APRN) Procedures/Interventions Date of ETT Placement: Apr 21, 2018 Time of ETT Placement: 174 (NIMISHA KRISHNAN MED STUDENT) Progress/Results/Core Measures Results/Orders Lab Results Laboratory Tests Test 07/18/20 12:36 07/18/20 13:47 Range/Units Sodium Level 139 135-145 MMOL/L Potassium Level 4.1 3.6-5.0 MMOL/L Chloride Level 104 98-107 MMOL/L Carbon Dioxide Level 28 21-32 MMOL/L Anion Gap 7 5-14 MMOL/L Blood Urea Nitrogen 15 7-18 MG/DL Creatinine 0.85 0.60-1.30 MG/DL Estimat Glomerular Filtration Rate > 60 BUN/Creatinine Ratio 18 Glucose Level 213 H 70-105 MG/DL Calcium Level 9.3 8.5-10.1 MG/DL Prothrombin Time 14.0 12.2-14.7 SEC INR Comment 1.0 0.8-1.4 (MANASA CUELLAR APRN) My Orders Orders - MANASA CUELLAR APRN Promethazine Injection (Phenergan Injec (07/18/20 12:15) Albuterol/Ipra Inhalation Soln (Duoneb I (07/18/20 14:15) Svn Small Volume Nebulizer (07/18/20 14:01) Loratadine Tablet (Claritin Tablet) (07/18/20 14:15) (MANASA CUELLAR APRN) Medications Given in ED Current Medications Medications Dose Ordered Sig/Alannah Route Start Time Stop Time Status Last Admin Dose Admin Albuterol/ Ipratropium 3 ml ONCE ONCE INH 07/18/20 14:15 07/18/20 14:16 DC 07/18/20 14:05 3 ML Diphenhydramine HCl 25 mg ONCE ONCE IVP 07/18/20 12:30 07/18/20 12:31 DC 07/18/20 12:50 25 MG Fentanyl Citrate 50 mcg ONCE ONCE IVP 07/18/20 12:30 07/18/20 12:31 DC 07/18/20 12:54 50 MCG Loratadine 10 mg ONCE ONCE PO 07/18/20 14:15 07/18/20 14:16 DC 07/18/20 14:15 10 MG Promethazine HCl 25 mg ONCE ONCE IM/IV 07/18/20 12:15 07/18/20 12:17 DC 07/18/20 12:25 25 MG (MANASA CUELLAR [employer] TECHNICI[employer]) Vital Signs/I&O 07/18/20 07/18/20 11:26 14:45 Temp 35.4 35.4 Pulse 63 63 Resp 16 16 B/P (MAP) 144/91 (108) 128/78 (108) Pulse Ox 94 95 O2 Delivery Room Air Room Air ([employer]SA [employer]) Blood Pressure Mean: 108 Progress Progress Note : Progress Note Initial exam performed by med student Nimisha Kenisha MS3. Upon arrival she is awake, alert, interacting appropriately. There are no focal or gross neurological deficits. Orders placed for Phenergan IM x1 for nausea. Reports that Toradol has worked in the past however she is currently taking Eliquis and can no longer take Toradol. Dr. Menezes placed orders for Phenergan IV push, Benadryl 25 mg IV push, normal saline 1 L, fentanyl 50 mcg, BMP, and INR. 1345: Resting in bed at this time. Reports improvement of symptoms, currently rating migraine 6 out of 10 at this time. Nausea improved. Pending lab results. Labs reviewed and unremarkable. She reports marked improvement of symptoms. She continues to have no gross neurological deficits. All pending lab results she complained of bronchospasm cough. States this happens frequently during the spring season, and she typically takes a Claritin or Zyrtec. However she has not taken any recently. Orders placed for albuterol and loratadine. Discussed with her that she may need to follow-up with neurology again if her symptoms persist. Also amitriptyline may be a good choice for her to help with migraines and her chronic neuropathy. She is feeling much improved at time of discharge. Reviewed discharge plan of care and she is agreeable with plan. No questions or concerns at this time. (MA[employer]SA CUELLAR [employer] TECH[employer]IC[employer]) Departure Impression Primary Impression: Migraine headache Disposition: 01 HOME, SELF-CARE Condition: Improved Departure-Patient Inst. Decision time for Depature: 14:12 (MA[employer]SA CUELLAR [employer] TECH[employer]IC[employer]ANS) Referrals: NANNETTE REID DO (PCP/Family) Primary Care Physician Patient Instructions: Migraines (DC) Add. Discharge Instructions: Plan: 1. Try taking Benadryl with Tylenol for migraine. Do not drive when taking Benadryl. 2. Follow up with your primary care provider, you may need referral to neurology if symptoms continue to persist. 3. Continue your Zyrtec or Claritin daily to help with allergy symptoms. 4. Return to ER if you experience and new, concerning, or worsening symptoms. All discharge instructions reviewed with patient and/or family. Voiced understanding. I have personally reviewed and attest to the history and physical findings of medical student Nimisha Krishnan MS3 unless otherwise stated above. ([employer]) Copy Copies To 1: NANNETTE REID MATTHEW MED STUDENT July 18, 2020 12:19 MANASA CUELLAR APRN July 18, 2020 13:48
[2020-07-18] MEDS ORDERED: NS IV 1000 ML 1,000 ML IV SCH (12:30)
[2020-07-18] MEDS ORDERED: diphenhydrAMINE 50 MG/ML INJ (BENADRYL) IVP ONE (12:30)
[2020-07-18] MEDS ORDERED: fentaNYL INJ 100 MCG/2 ML AMP IVP ONE (12:30)
[2020-07-18] MEDS ORDERED: PROMETHAZINE INJ 25 MG/ML (PHENERGAN) AMP IVP ONE (12:30)
[2020-07-18 12:58] LABS: CHLORIDE 104 MMOL/L (98-107); POTASSIUM 4.1 MMOL/L (3.6-5.0); SODIUM 139 MMOL/L (135-145)
[2020-07-18 12:59] LABS: CALCIUM 9.3 MG/DL (8.5-10.1)
[2020-07-18 13:00] LABS: GLUCOSE 213 MG/DL (70-105)
[2020-07-18 13:01] LABS: CARBON DIOXIDE 28 MMOL/L (21-32)
[2020-07-18 13:04] LABS: CREATININE SERUM 0.85 MG/DL (0.60-1.30); GFR ESTIMATED > 60
[2020-07-18 13:05] LABS: BUN/CREATININE RATIO 18
[2020-07-18] MEDS ORDERED: LORATADINE (CLARITIN) 10 MG TAB PO ONE (14:15)
[2020-07-18] MEDS ORDERED: RT-ALBUTEROL/IPRATROPIUM 3 ML (DUONEB) VIAL INH ONE (14:15)
[2020-07-18 14:45] VITALS: BP 128/78
== END 2020-07-18 14:45 | disposition home or self-care (01) ==
LOC: EDUNIT# 11:18 → ER 11:20
DX: G43.809 Other migraine, not intractable, without status migrainosus (principal); I10 Essential (primary) hypertension; E11.40 Type 2 diabetes mellitus with diabetic neuropathy, unspecified; I48.91 Unspecified atrial fibrillation; I25.10 Atherosclerotic heart disease of native coronary artery without angina pectoris; J44.9 Chronic obstructive pulmonary disease, unspecified; G89.29 Other chronic pain; M54.2 Cervicalgia; K21.9 Gastro-esophageal reflux disease without esophagitis; Z88.0 Allergy status to penicillin; Z88.1 Allergy status to other antibiotic agents; Z88.2 Allergy status to sulfonamides; Z88.8 Allergy status to other drugs, medicaments and biological substances; Z86.73 Personal history of transient ischemic attack (TIA), and cerebral infarction without residual deficits; Z99.81 Dependence on supplemental oxygen; Z95.810 Presence of automatic (implantable) cardiac defibrillator; Z79.4 Long term (current) use of insulin; Z79.01 Long term (current) use of anticoagulants; Z79.899 Other long term (current) drug therapy
CPT/HCPCS: 36415; 80048; 85610

== ENCOUNTER → 2020-10-06 | Outpatient (CLI) | payer MEDICARE, MEDICAID ==
[~2020-10-06] MED LIST changes: -OMEP40CA27 PO; +OMEP40CA6 PO; -TOLT4CAP13 PO; +TOLT4CAP26 PO
== END ==
LOC: LABNPT 06:27
PROVIDERS: ATTEND Otolaryngology Otolaryngology/Facial Plastic Surgery
DX: G47.33 Obstructive sleep apnea (adult) (pediatric) (principal); Z20.822 Contact with and (suspected) exposure to COVID-19
CPT/HCPCS: 87635

== ENCOUNTER 2020-10-08 20:35 | Outpatient (CLI) | payer MEDICARE, MEDICAID | END 2020-10-09 07:00 | disposition home or self-care (01) | LOC: SLEEP 20:35 | PROVIDERS: ATTEND Otolaryngology Otolaryngology/Facial Plastic Surgery | DX: G47.33 Obstructive sleep apnea (adult) (pediatric) (principal); I10 Essential (primary) hypertension; J44.9 Chronic obstructive pulmonary disease, unspecified; G47.00 Insomnia, unspecified; R56.9 Unspecified convulsions | CPT/HCPCS: 95810 ==

== ENCOUNTER → 2020-10-24 | Outpatient (CLI) | payer MEDICARE, MEDICAID ==
[2020-10-24 10:37] LABS: BASOPHILS # (AUTO) 0.1 10^3/uL (0.0-0.1); BASOPHILS % (AUTO) 1 % (0-10); EOSINOPHILS # (AUTO) 0.1 10^3/uL (0.0-0.3); EOSINOPHILS % (AUTO) 2 % (0-10); HEMATOCRIT 41 % (35-52); HEMOGLOBIN 12.9 g/dL (11.5-16.0); LYMPHOCYTES % (AUTO) 30 % (12-44); MEAN CORPUSCULAR HEMOGLOBIN 29 pg (25-34); MEAN CORPUSCULAR HGB CONC 31 g/dL (32-36); MEAN CORPUSCULAR VOLUME 93 fL (80-99); MEAN PLATELET VOLUME 9.7 fL (9.0-12.2); MONOCYTES # (AUTO) 0.4 10^3/uL (0.0-1.0); MONOCYTES % (AUTO) 6 % (0-12); NEUTROPHILS % (AUTO) 60 % (42-75); PLATELET COUNT 213 10^3/uL (130-400); WHITE BLOOD COUNT 6.7 10^3/uL (4.3-11.0)
[2020-10-24 10:55] LABS: ERYTHROCYTE SEDIMENTATION RATE 32 MM/HR (0-30)
[2020-10-24 10:58] LABS: ALBUMIN 3.8 GM/DL (3.2-4.5); BILIRUBIN,TOTAL 0.4 MG/DL (0.1-1.0); CALCIUM 9.3 MG/DL (8.5-10.1); CREATININE SERUM 0.79 MG/DL (0.60-1.30); POTASSIUM 3.9 MMOL/L (3.6-5.0); TOTAL PROTEIN 6.8 GM/DL (6.4-8.2)
[2020-10-24 11:19] LABS: FREE T4 (FREE THYROXINE) 1.04 NG/DL (0.70-1.48)
== END ==
LOC: LAB 10:15
PROVIDERS: ATTEND Family Medicine
DX: E11.9 Type 2 diabetes mellitus without complications (principal); M25.50 Pain in unspecified joint; R53.83 Other fatigue
CPT/HCPCS: 36415; 80053; 83036; 84439; 84443; 85025; 85652; 86141

== ENCOUNTER → 2020-11-22 | Outpatient (CLI) | payer MEDICARE, MEDICAID ==
--- NOTE | 2020-11-22 11:11 | Diagnostic Imaging Report ---
INDICATION: Dyspnea. FINDINGS: The heart size is normal. The lungs are clear. There is no pleural effusion or pneumothorax. The mediastinum is unremarkable. A pacemaker overlies the left hemithorax. IMPRESSION: No acute cardiopulmonary abnormality. Dictated by: Dictated on workstation # [id number]
== END ==
LOC: RAD 10:23
PROVIDERS: ATTEND Family Medicine
DX: J44.9 Chronic obstructive pulmonary disease, unspecified (principal); Z86.16 Personal history of COVID-19
CPT/HCPCS: 71046

== ENCOUNTER → 2020-12-12 | Outpatient (CLI) | payer MEDICARE, MEDICAID ==
[~2020-12-12] MED LIST changes: -DOXY100C2 PO; +DOXY100C5 PO; +RT-ALBUTEROL SULF 2.5 MG/3 ML PRE-MIX VIAL INH ONE
== END ==
LOC: RT 10:45
PROVIDERS: ATTEND Family Medicine
DX: U09.9 Post COVID-19 condition, unspecified (principal); R06.09 Other forms of dyspnea
CPT/HCPCS: 94060; 94726; 94729

== ENCOUNTER 2020-12-14 09:21 | Emergency (ER) | payer MEDICARE, MEDICAID ==
[~2020-12-14] VITALS: Ht 161 cm; Wt 99.0 kg
[~2020-12-14 09:21] MED LIST changes: -RT-ALBUTEROL SULF 2.5 MG/3 ML PRE-MIX VIAL INH ONE
[2020-12-14] MEDS ORDERED: diphenhydrAMINE 50 MG/ML INJ (BENADRYL) IV STA (09:33)
--- NOTE | 2020-12-14 09:33 | ED General ---
General Stated Complaint: CP,MCCORMICK,FATIGUE,COUGH History of Present Illness Date Seen by Provider: Dec 14, 2020 Time Seen by Provider: 09:28 Initial Comments 75-year-old female presents with feeling of uneasiness. Patient reports that she is having a hard time describing it. Patient states that she has a history of restless legs and that has been getting worse over the last couple months. That she was recently had a medication change that helped for little bit but continues to worsen. Patient has difficulty describing how she is feeling. She also reports that she has some mild occasional cough. Little bit of a headache. She is not sure what she can do but just wanted to be checked out the hope that there is something we could possibly help her with her restless legs. Patient does not have any fevers or chills. Patient has recovered for Covid twice. Patient denies chest pain, shortness of breath, nausea vomiting or other systemic complaints. Allergies and Home Medications Allergies Coded Allergies: Penicillins (Unverified Allergy, Severe, Pt has received Cefepime & Ceftriaxone in the past w/o issue, 09/22/19) SWELLING, RASH, ITCHING vancomycin (Verified Allergy, Severe, Nausea, 06/21/20) COUGH, THROAT FEELING TIGHT Sulfa (Sulfonamide Antibiotics) (Verified Allergy, Mild, 09/22/19) RASH aspirin (Verified Adverse Reaction, Mild, ASPIRIN SENSITIVE, 09/22/19) UPSET STOMACH sumatriptan (Verified Adverse Reaction, Mild, PALPITATIONS, 09/22/19) IRRITABLE Patient Home Medication List Home Medication List Reviewed: Yes Acetaminophen (Acetaminophen) 500 Mg Tablet, 1,000 MG PO Q6H PRN for PAIN-MILD (1-4) OR TEMPATURE Prescribed by: NANNETTE REVELES on 02/05/20 0946 Apixaban (Eliquis) 5 Mg Tablet, 5 MG PO BID, (Reported) Entered as Reported by: LORIN ZHENG on 01/29/20 1213 Baclofen (Baclofen) 10 Mg Tablet, 20 MG PO BID, (Reported) Entered as Reported by: LORIN ZHENG on 01/29/20 1213 Cephalexin (Cephalexin) 500 Mg Capsule, 500 MG PO TID, (Reported) Entered as Reported by: TAWANDA DRAKE on 06/21/20 1244 Cholecalciferol (Vitamin D3) (Vitamin D3) 25 Mcg Capsule, 25 MCG PO DAILY, (Reported) Entered as Reported by: LORIN ZHENG on 01/29/20 1213 Furosemide (Furosemide) 20 Mg Tablet, 20 MG PO DAILY, (Reported) Entered as Reported by: TAWANDA RDAKE on 06/21/20 1244 Insulin NPH Human Isophane (Humulin N) 100 Unit/1 Ml Vial, 30 UNIT SQ BID Prescribed by: TAWANDA DRAKE on 06/21/20 1244 Melatonin (Melatonin) 10 Mg Tablet, 10 MG PO, (Reported) Entered as Reported by: LORIN ZHENG on 01/29/20 1213 Metoprolol Tartrate (Metoprolol Tartrate) 50 Mg Tablet, 50 MG PO BID, (Reported) Entered as Reported by: LORIN ZHENG on 01/29/20 1213 Nystatin (Nystatin) 15 Gm Cream..g., 0 GM TP TID Prescribed by: NANNETTE REVELES on 02/05/20 0946 Omeprazole (Omeprazole) 40 Mg Capsule.dr, 40 MG PO BID, (Reported) Entered as Reported by: KEI YOUSIF on 03/03/17 1453 Potassium Chloride (Potassium Chloride) 10 Meq Tab.er.prt, 10 MEQ PO DAILY, (Reported) Entered as Reported by: TAWANDA DRAKE on 06/21/20 1244 Pramipexole Di-HCl (Pramipexole Dihydrochloride) 1 Mg Tablet, 1 MG PO 1600, (Reported) Entered as Reported by: MINA MORSE on 06/10/17 1445 Vitamin E Acetate (Vitamin E) 400 Unit Capsule, 400 UNIT PO DAILY, (Reported) Entered as Reported by: TAWANDA DRAKE on 06/21/20 1244 Review of Systems Review of Systems Constitutional: see HPI; No chills, No fever; other (Irritability) EENTM: no symptoms reported Respiratory: cough; No dyspnea on exertion, No short of breath Cardiovascular: No chest pain, No palpitations Gastrointestinal: No abdominal pain, No nausea, No vomiting Genitourinary: no symptoms reported Musculoskeletal: no symptoms reported Skin: no symptoms reported Psychiatric/Neurological: No Symptoms Reported Hematologic/Lymphatic: No Symptoms Reported Immunological/Allergic: no symptoms reported Past Nbaqqxb-Urtabl-Vtyzgx Hx Immunizations Up To Date Tetanus Booster (TDap): Unknown PED Vaccines UTD: No Seasonal Allergies Seasonal Allergies: Yes Past Medical History Surgeries: Yes (LAP CORNELIUS; C-SPINE FUSION/DISCECTOMY C5-C6 ) Abdominal, Appendectomy, Cardiac, Defibrillator, Eye Surgery, Gallbladder, Hysterectomy, Oophorectomy, Orthopedic, Pacemaker, Tonsillectomy Respiratory: Yes (O2 AT 2L/NC CONTINUOUSLY) Asthma, Pneumonia, Chronic Bronchitis, Sleep Apnea, COPD Currently Using CPAP: No Currently Using BIPAP: No Cardiac: Yes (PACEMAKER/DEFIBRILLATOR;CARDIAC ARREST DURING ENT SURGERY;PSVT/PALPITATIONS) Atrial Fibrillation, Chronic Edema/Swelling, Coronary Artery Disease, High Cholesterol, Hypertension, Irregular Heartbeat Neurological: Yes (PERIPHERAL NEUROPATHY HANDS/FEET; CHRONIC HEADACHES) Headaches /Migraines, Neuropathy, TIA 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 Disorders: No 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 PAIN) Degenerate Disk Disease, Arthritis, Fibromyalgia, Chronic Back Pain, Fractures Endocrine: Yes Diabetes, Insulin dep, Diabetes, Non-Insulin dep HEENT: Yes (S/P BILATERAL CATARACT SURGERY + YAG PROCEDURE;ENT SURG WITH CARDIAC ARREST) Cataract Loss of Vision: Denies Hearing Impairment: Denies Cancer: No Psychosocial: Yes Anxiety, Depression Integumentary: Yes (NELIA INTERTRIGO) Pruritis Blood Disorders: No Adverse Reaction/Blood Tranf: No Family Medical History Alzheimer's disease 19 FATHER Cardiovascular disease 19 FATHER 19 MOTHER Completed stroke 19 MOTHER Hypertension 19 FATHER 19 MOTHER Myocardial infarction 19 FATHER 19 MOTHER No Family History of: Diabetes mellitus PSH: -T12 KYPHOPLASTY -C5-C6 CERVICAL DISCECTOMY WITH FUSION 04/2018 -LAP CORNELIUS FUNDOPLICATION -EGD'S/ESOPHAGEAL DILATIONS/COLONOSCOPIES/POLYPECTOMIES -PACEMAKER/DEFIBRILLATOR -HYSTERECTOMY/BSO -CHOLECYSTECTOMY -APPENDECTOMY -TONSILLECTOMY -OVARIAN CYST SURGERIES X 4 -CYST FROM BACK REMOVED -ENT SURGERY -BILATERAL CARPAL TUNNEL REPAIR -BILATERAL CATARACT SURGERY + YAG PROCEDURE PMH: -CHRONIC NECK PAIN WITH CERVICAL RADICULOPATHY -RESTLESS LEG SYNDROME -CHRONIC BACK PAIN -T12 COMPRESSION WITH KYPHOPLASTY -HAS HAD POST OP RESPIRATORY FAILURE IN PAST -HAD CARDIAC ARREST WITH ENT SURGERY -CAROTID DISEASE--40-50% STENOSIS BILAT ICA -PAROXYSMAL A FIB--HAS REFUSED ORAL ANTICOAGULANTS -HX OF V-FIB AND BRADYCARDIA--S/P PACEMAKER/DEFIBRILLATOR -08/23/19--CARDIAC CATH--NO SIGNIFICANT CORONARY ARTERY DISEASE, EF 50% Physical Exam Vital Signs Vital Signs - First Documented 12/14/20 09:29 Temp 36.5 Pulse 72 Resp 22 B/P (MAP) 156/93 (114) Pulse Ox 97 O2 Delivery Room Air Capillary Refill : Height, Weight, BMI Height: 5'4.00" Weight: 215lbs. 0oz. 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 Norm as Tested Skin: Normal Color, Warm/Dry Procedures/Interventions Date of ETT Placement: Apr 21, 2018 Time of ETT Placement: 1744 Progress/Results/Core Measures Suspected Sepsis SIRS Temperature: Pulse: Respiratory Rate: Laboratory Tests 12/14/20 10:00: White Blood Count 9.1 Blood Pressure / Mean: Laboratory Tests 12/14/20 10:00: Creatinine 0.87, Platelet Count 254, Total Bilirubin 0.2 Results/Orders Lab Results Laboratory Tests Test 12/14/20 09:42 12/14/20 10:00 12/14/20 10:05 Range/Units Glucometer 149 H 70-110 MG/DL White Blood Count 9.1 4.3-11.0 10^3/uL Red Blood Count 4.36 3.80-5.11 10^6/uL Hemoglobin 12.8 11.5-16.0 g/dL Hematocrit 40 35-52 % Mean Corpuscular Volume 91 80-99 fL Mean Corpuscular Hemoglobin 29 25-34 pg Mean Corpuscular Hemoglobin Concent 32 32-36 g/dL Red Cell Distribution Width 13.1 10.0-14.5 % Platelet Count 254 130-400 10^3/uL Mean Platelet Volume 9.7 9.0-12.2 fL Immature Granulocyte % (Auto) 1 % Neutrophils (%) (Auto) 69 42-75 % Lymphocytes (%) (Auto) 22 12-44 % Monocytes (%) (Auto) 6 0-12 % Eosinophils (%) (Auto) 2 0-10 % Basophils (%) (Auto) 1 0-10 % Neutrophils # (Auto) 6.3 1.8-7.8 10^3/uL Lymphocytes # (Auto) 2.0 1.0-4.0 10^3/uL Monocytes # (Auto) 0.5 0.0-1.0 10^3/uL Eosinophils # (Auto) 0.2 0.0-0.3 10^3/uL Basophils # (Auto) 0.1 0.0-0.1 10^3/uL Immature Granulocyte # (Auto) 0.1 0.0-0.1 10^3/uL Sodium Level 140 135-145 MMOL/L Potassium Level 4.0 3.6-5.0 MMOL/L Chloride Level 105 98-107 MMOL/L Carbon Dioxide Level 23 21-32 MMOL/L Anion Gap 12 5-14 MMOL/L Blood Urea Nitrogen 14 7-18 MG/DL Creatinine 0.87 0.60-1.30 MG/DL Estimat Glomerular Filtration Rate 64 BUN/Creatinine Ratio 16 Glucose Level 140 H 70-105 MG/DL Calcium Level 9.3 8.5-10.1 MG/DL Corrected Calcium 9.5 8.5-10.1 MG/DL Magnesium Level 1.8 1.6-2.4 MG/DL Total Bilirubin 0.2 0.1-1.0 MG/DL Aspartate Amino Transf (AST/SGOT) 15 5-34 U/L Alanine Aminotransferase (ALT/SGPT) 9 0-55 U/L Alkaline Phosphatase 111 40-136 U/L Total Protein 6.6 6.4-8.2 GM/DL Albumin 3.7 3.2-4.5 GM/DL Urine Color YELLOW Urine Clarity CLEAR Urine pH 6.0 5-9 Urine Specific [place] 1.025 H 1.016-1.022 Urine Protein NEGATIVE NEGATIVE Urine Glucose (UA) NEGATIVE NEGATIVE Urine Ketones TRACE H NEGATIVE Urine Nitrite NEGATIVE NEGATIVE Urine Bilirubin NEGATIVE NEGATIVE Urine Urobilinogen 0.2 < = 1.0 MG/DL Urine Leukocyte Esterase 1+ H NEGATIVE Urine RBC (Auto) NEGATIVE NEGATIVE Urine RBC NONE /HPF Urine WBC 5-10 H /HPF Urine Squamous Epithelial Cells 2-5 /HPF Urine Crystals NONE /LPF Urine Bacteria FEW H /HPF Urine Casts NONE /LPF Urine Mucus NEGATIVE /LPF Urine Culture Indicated YES My Orders Orders - VARGAS,PARMJIT L DO Chest 1 View, Ap/Pa Only (12/14/20 09:33) Cbc With Automated Diff (12/14/20 09:33) Comprehensive Metabolic Panel (12/14/20 09:33) Magnesium (12/14/20 09:33) Ua Culture If Indicated (12/14/20 09:33) Accucheck Stat ONCE (12/14/20 09:33) Diphenhydramine Injection (Benadryl Inje (12/14/20 09:33) Urine Culture (12/14/20 10:05) Vital Signs/I&O 12/14/20 09:29 Temp 36.5 Pulse 72 Resp 22 B/P (MAP) 156/93 (114) Pulse Ox 97 O2 Delivery Room Air Capillary Refill : Progress Note : Progress Note Patient has a urinary tract infection which can likely be causing exacerbation of her underlying restless legs and other symptoms. I will treat her with Macrobid x5 days. Recommend she follow-up with her primary care provider for further outpatient evaluation. Patient was stable upon discharge Departure Impression Primary Impression: Acute cystitis Qualified Codes: N30.00 - Acute cystitis without hematuria Disposition: HOME, SELF-CARE Condition: Stable Departure-Patient Inst. Referrals: NO,LOCAL PHYSICIAN (PCP) Primary Care Physician JOSEPH MERAZ (Family) Primary Care Physician Patient Instructions: Urinary Tract Infection, Adult (DC) Add. Discharge Instructions: Follow-up with your primary care provider in 3 to 4 days for recheck of your symptoms Scripts Nitrofurantoin Macrocrystal (Nitrofurantoin) 100 Mg Capsule 100 MG PO BID, #10 CAP 0 Refills Prov: AYLIN VARGASVOR L DO 12/14/20 AYLIN VARGASVOR L DO Dec 14, 2020 09:33
[2020-12-14 10:07] LABS: BASOPHILS # (AUTO) 0.1 10^3/uL (0.0-0.1); BASOPHILS % (AUTO) 1 % (0-10); EOSINOPHILS # (AUTO) 0.2 10^3/uL (0.0-0.3); EOSINOPHILS % (AUTO) 2 % (0-10); HEMATOCRIT 40 % (35-52); HEMOGLOBIN 12.8 g/dL (11.5-16.0); LYMPHOCYTES % (AUTO) 22 % (12-44); MEAN CORPUSCULAR HEMOGLOBIN 29 pg (25-34); MEAN CORPUSCULAR HGB CONC 32 g/dL (32-36); MEAN CORPUSCULAR VOLUME 91 fL (80-99); MEAN PLATELET VOLUME 9.7 fL (9.0-12.2); MONOCYTES # (AUTO) 0.5 10^3/uL (0.0-1.0); MONOCYTES % (AUTO) 6 % (0-12); NEUTROPHILS # (AUTO) 6.3 10^3/uL (1.8-7.8); NEUTROPHILS % (AUTO) 69 % (42-75); PLATELET COUNT 254 10^3/uL (130-400); WHITE BLOOD COUNT 9.1 10^3/uL (4.3-11.0)
[2020-12-14 10:15] LABS: BILIRUBIN,URINE NEGATIVE (NEGATIVE); CLARITY,URINE CLEAR; COLOR,URINE YELLOW; GLUCOSE, URINE (UA) NEGATIVE (NEGATIVE); KETONES,URINE TRACE (NEGATIVE); LEUKOCYTE ESTERASE ,URINE 1+ (NEGATIVE); NITRITE,URINE NEGATIVE (NEGATIVE); PROTEIN,URINE NEGATIVE (NEGATIVE)
[2020-12-14 10:25] LABS: BACTERIA,URINE FEW /HPF
[2020-12-14 10:27] LABS: ALBUMIN 3.7 GM/DL (3.2-4.5)
[2020-12-14 10:29] LABS: CALCIUM 9.3 MG/DL (8.5-10.1)
[2020-12-14 10:30] LABS: TOTAL PROTEIN 6.6 GM/DL (6.4-8.2)
[2020-12-14 10:32] LABS: BILIRUBIN,TOTAL 0.2 MG/DL (0.1-1.0)
[2020-12-14 10:34] LABS: CREATININE SERUM 0.87 MG/DL (0.60-1.30)
[2020-12-14 10:37] LABS: MAGNESIUM 1.8 MG/DL (1.6-2.4)
--- NOTE | 2020-12-14 10:39 | Diagnostic Imaging Report ---
INDICATION: Chest pain, headache, cough, fatigue. TECHNIQUE: Single-view chest at 10:12 a.m. CORRELATION STUDY: 11/22/2020. FINDINGS: Left-sided pacemaker is present. Heart size is enlarged. Mediastinum is prominent. Vasculature is overall within normal limits. Left lower lung field is obscured by pacemaker. Visualized lung evangelista are clear. Cervical spinal fusion hardware is present. IMPRESSION: 1. Generally stable chest demonstrates no acute abnormality. Stable cardiac enlargement without failure. Dictated by: Dictated on workstation # [id number]
[2020-12-14] MEDS ORDERED: NITR100C PO (10:47)
[2020-12-14 10:59] VITALS: BP 156/93
== END 2020-12-14 10:59 | disposition home or self-care (01) ==
LOC: EDUNIT# 09:21 → ER 09:23
DX: N30.00 Acute cystitis without hematuria (principal); I10 Essential (primary) hypertension; G47.30 Sleep apnea, unspecified; J44.9 Chronic obstructive pulmonary disease, unspecified; I48.91 Unspecified atrial fibrillation; K21.9 Gastro-esophageal reflux disease without esophagitis; E11.9 Type 2 diabetes mellitus without complications; Z86.16 Personal history of COVID-19; Z86.73 Personal history of transient ischemic attack (TIA), and cerebral infarction without residual deficits; Z79.01 Long term (current) use of anticoagulants; Z79.899 Other long term (current) drug therapy; Z79.4 Long term (current) use of insulin
CPT/HCPCS: 36415; 71045; 80053; 81000; 82947; 83735; 85025; 87088

== ENCOUNTER 2021-01-28 09:22 | Emergency (ER) | payer MEDICARE, MEDICAID ==
[~2021-01-28] VITALS: Ht 162 cm; Wt 99.7 kg
[~2021-01-28 09:22] MED LIST changes: +CYCL10TA25 PO; -LEVO500T80 PO; +LEVO500T81 PO; -MAGN400T8 PO; +MGX400T PO; +MONT-40 PO; -MONT10TA32 PO; -POTA10TA36 PO; +POTA10TA37 PO
[2021-01-28] MEDS ORDERED: CLIN-144 PO (10:44)
[2021-01-28] MEDS ORDERED: ACHD5005 PO (10:44)
--- NOTE | 2021-01-28 10:44 | ED EENT ---
History of Present Illness General Chief Complaint: Dental Problems/Pain Stated Complaint: DENTAL PAIN/FEVER Nursing Triage Note: PT PRESENTS TO ED WITH COMPLAINTS OF L SIDE JAW, CHEEK, NECK PAIN STARTING YESTERDAY. PT ALSO REPORTS FEVER. STATES SHE TOOK TYLENOL AT 0600 AM TODAY. PT REPORTS SHE WAS RECENTLY SEEN FOR A DENTAL ISSUE/FILLING ON THE L SIDE Source: patient Exam Limitations: no limitations (EARNESTINE CAMARGO APRN) History of Present Illness Date Seen by Provider: Jan 28, 2021 Time Seen by Provider: 10:38 Initial Comments To ER with left-sided upper and lower dental pain. This has been an ache for about 3 months but got acutely worse yesterday when she bit into a piece of toast and had sudden worsening of her left-sided dental pain. She cannot tell if it is upper or lower dental pain. It seems to radiate down into her neck as well. She has had some fevers. She is been taking Tylenol. Timing/Duration: abrupt Severity: moderate Location: dental Prearrival Treatment: over the counter meds Associated Symptoms: facial pain/swelling (EARNESTINE CAMARGO APRN) Allergies and Home Medications Allergies Coded Allergies: Penicillins (Unverified Allergy, Severe, Pt has received Cefepime & Ceftriaxone in the past w/o issue, 09/22/19) SWELLING, RASH, ITCHING vancomycin (Verified Allergy, Severe, Nausea, 06/21/20) COUGH, THROAT FEELING TIGHT Sulfa (Sulfonamide Antibiotics) (Verified Allergy, Mild, 09/22/19) RASH aspirin (Verified Adverse Reaction, Mild, ASPIRIN SENSITIVE, 09/22/19) UPSET STOMACH sumatriptan (Verified Adverse Reaction, Mild, PALPITATIONS, 09/22/19) IRRITABLE Patient Home Medication List Home Medication List Reviewed: Yes (EARNESTINE CAMARGO APRN) Acetaminophen (Acetaminophen) 500 Mg Tablet, 1,000 MG PO Q6H PRN for PAIN-MILD (1-4) OR TEMPATURE Prescribed by: NANNETTE REVELES on 02/05/20 0946 Apixaban (Eliquis) 5 Mg Tablet, 5 MG PO BID, (Reported) Entered as Reported by: LORIN ZHENG on 01/29/20 1213 Baclofen (Baclofen) 10 Mg Tablet, 20 MG PO BID, (Reported) Entered as Reported by: LORIN ZHENG on 01/29/20 1213 Cephalexin (Cephalexin) 500 Mg Capsule, 500 MG PO TID, (Reported) Entered as Reported by: TAWANDA DRAKE on 06/21/20 1244 Cholecalciferol (Vitamin D3) (Vitamin D3) 25 Mcg Capsule, 25 MCG PO DAILY, (Reported) Entered as Reported by: LORIN ZHENG on 01/29/20 1213 Clindamycin HCl (Clindamycin HCl) 300 Mg Capsule, 300 MG PO TID Prescribed by: EARNESTINE CAMARGO on 01/28/21 1044 Furosemide (Furosemide) 20 Mg Tablet, 20 MG PO DAILY, (Reported) Entered as Reported by: TAWANDA DRAKE on 06/21/20 1244 Hydrocodone/Acetaminophen (Hydrocodone-Acetamin 5-325 mg) 1 Each Tablet, 1 TAB PO Q4H PRN for PAIN-MODERATE (5-7) Prescribed by: EARNESTINE CAMARGO on 01/28/21 1045 Insulin NPH Human Isophane (Humulin N) 100 Unit/1 Ml Vial, 30 UNIT SQ BID Prescribed by: TAWANDA DRAKE on 06/21/20 1244 Melatonin (Melatonin) 10 Mg Tablet, 10 MG PO, (Reported) Entered as Reported by: LORIN ZHENG on 01/29/20 1213 Metoprolol Tartrate (Metoprolol Tartrate) 50 Mg Tablet, 50 MG PO BID, (Reported) Entered as Reported by: LORIN ZHENG on 01/29/20 1213 Nitrofurantoin Macrocrystal (Nitrofurantoin) 100 Mg Capsule, 100 MG PO BID Prescribed by: PARMJIT VARGAS on 12/14/20 1047 Nystatin (Nystatin) 15 Gm Cream..g., 0 GM TP TID Prescribed by: NANNETTE REVELES on 02/05/20 0946 Omeprazole (Omeprazole) 40 Mg Capsule.dr, 40 MG PO BID, (Reported) Entered as Reported by: KEI YOUSIF on 03/03/17 1453 Potassium Chloride (Potassium Chloride) 10 Meq Tab.er.prt, 10 MEQ PO DAILY, (Reported) Entered as Reported by: TAWANDA DRAKE on 06/21/20 1244 Pramipexole Di-HCl (Pramipexole Dihydrochloride) 1 Mg Tablet, 1 MG PO 1600, (Reported) Entered as Reported by: MINA MORSE on 06/10/17 1445 Vitamin E Acetate (Vitamin E) 400 Unit Capsule, 400 UNIT PO DAILY, (Reported) Entered as Reported by: TAWANDA DRAKE on 06/21/20 1244 Review of Systems Review of Systems Constitutional: see HPI Eyes: No Symptoms Reported Ears: No Symptoms Reported Nose: no symptoms reported Mouth: see HPI Throat: no symptoms reported Respiratory: no symptoms reported Cardiovascular: no symptoms reported Musculoskeletal: no symptoms reported (EARNESTINE CAMARGO APRN) Past Mlrrsib-Fttmls-Uzmgir Hx Patient Social History Tobacco Use?: No Substance use?: No Alcohol Use?: No Pt feels they are or have been: No (EARNESTINE CAMARGO APRN) Immunizations Up To Date Tetanus Booster (TDap): Unknown PED Vaccines UTD: No (EARNESTINE CAMARGO APRN) Seasonal Allergies Seasonal Allergies: Yes (EARNESTINE CAMARGO APRN) Past Medical History Surgery/Hospitalization HX: PMH:FIBRO, NEUROPATHY, COPD, HEART PROBLEMS, DEFIB/PACEMAKER, DM Surgeries: Yes (LAP CORNELIUS; C-SPINE FUSION/DISCECTOMY C5-C6 ) Abdominal, Appendectomy, Cardiac, Defibrillator, Eye Surgery, Gallbladder, Hysterectomy, Oophorectomy, Orthopedic, Pacemaker, Tonsillectomy Respiratory: Yes (O2 AT 2L/NC CONTINUOUSLY) Asthma, Pneumonia, Chronic Bronchitis, Sleep Apnea, COPD Currently Using CPAP: No Currently Using BIPAP: No Cardiac: Yes (PACEMAKER/DEFIBRILLATOR;CARDIAC ARREST DURING ENT SURGERY;PSVT/PALPITATIONS) Atrial Fibrillation, Chronic Edema/Swelling, Coronary Artery Disease, High Cholesterol, Hypertension, Irregular Heartbeat Neurological: Yes (PERIPHERAL NEUROPATHY HANDS/FEET; CHRONIC HEADACHES) Headaches /Migraines, Neuropathy, TIA 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 Disorders: No 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 PAIN) Degenerate Disk Disease, Arthritis, Fibromyalgia, Chronic Back Pain, Fractures Endocrine: Yes Diabetes, Insulin dep, Diabetes, Non-Insulin dep HEENT: Yes (S/P BILATERAL CATARACT SURGERY + YAG PROCEDURE;ENT SURG WITH CARDIAC ARREST) Cataract Loss of Vision: Denies Hearing Impairment: Denies Cancer: No Psychosocial: Yes Anxiety, Depression Integumentary: Yes (NELIA INTERTRIGO) Pruritis Blood Disorders: No Adverse Reaction/Blood Tranf: No (EARNESTINE CAMARGO APRN) Family Medical History Alzheimer's disease 19 FATHER Cardiovascular disease 19 FATHER 19 MOTHER Completed stroke 19 MOTHER Hypertension 19 FATHER 19 MOTHER Myocardial infarction 19 FATHER 19 MOTHER No Family History of: Diabetes mellitus PSH: -T12 KYPHOPLASTY -C5-C6 CERVICAL DISCECTOMY WITH FUSION 04/2018 -LAP CORNELIUS FUNDOPLICATION -EGD'S/ESOPHAGEAL DILATIONS/COLONOSCOPIES/POLYPECTOMIES -PACEMAKER/DEFIBRILLATOR -HYSTERECTOMY/BSO -CHOLECYSTECTOMY -APPENDECTOMY -TONSILLECTOMY -OVARIAN CYST SURGERIES X 4 -CYST FROM BACK REMOVED -ENT SURGERY -BILATERAL CARPAL TUNNEL REPAIR -BILATERAL CATARACT SURGERY + YAG PROCEDURE PMH: -CHRONIC NECK PAIN WITH CERVICAL RADICULOPATHY -RESTLESS LEG SYNDROME -CHRONIC BACK PAIN -T12 COMPRESSION WITH KYPHOPLASTY -HAS HAD POST OP RESPIRATORY FAILURE IN PAST -HAD CARDIAC ARREST WITH ENT SURGERY -CAROTID DISEASE--40-50% STENOSIS BILAT ICA -PAROXYSMAL A FIB--HAS REFUSED ORAL ANTICOAGULANTS -HX OF V-FIB AND BRADYCARDIA--S/P PACEMAKER/DEFIBRILLATOR -08/23/19--CARDIAC CATH--NO SIGNIFICANT CORONARY ARTERY DISEASE, EF 50% (EARNESTINE CAMARGO APRN) Physical Exam Vital Signs Vital Signs - First Documented 01/28/21 09:38 Temp 36.4 Pulse 71 Resp 18 B/P (MAP) 154/84 (107) Pulse Ox 98 (BRADY HOFFMAN MD) Height, Weight, BMI Height: 5'4.00" Weight: 215lbs. 0oz. 97.897678mn; 37.00 BMI Method:Stated General Appearance: WD/WN, no apparent distress Eyes: bilateral eye normal inspection, bilateral eye PERRL, bilateral eye EOMI Ears: bilateral ear auricle normal, bilateral ear canal normal, bilateral ear TM normal Mouth/Throat: other (posterior left maxillary teeth tender to palpation with tenderness to palpation of the gingival buccal fold on the left as well without swelling) Neck: non-tender, full range of motion Respiratory: no respiratory distress, no accessory muscle use Gastrointestinal: normal bowel sounds, non tender, soft Neurologic/Psychiatric: alert, normal mood/affect, oriented x 3 Skin: normal color, warm/dry (EARNESTINE CAMARGO APRN) Procedures/Interventions Date of ETT Placement: Apr 21, 2018 Time of ETT Placement: 1744 (EARNESTINE CAMARGO APRN) Progress/Results/Core Measures Results/Orders Vital Signs/I&O 01/28/21 01/28/21 09:38 10:50 Temp 36.4 36.4 Pulse 71 80 Resp 18 18 B/P (MAP) 154/84 (107) 154/84 Pulse Ox 98 99 (BRADY HOFFMAN MD) Blood Pressure Mean: 107 Departure Impression Primary Impression: Pain, dental Disposition: 01 HOME, SELF-CARE Condition: Stable Departure-Patient Inst. Decision time for Depature: 10:41 (EARNESTINE CAMARGO APRN) Referrals: NANNETTE REVELES DO (PCP/Family) Primary Care Physician Patient Instructions: Dental Pain Add. Discharge Instructions: 1. Call your dentist for follow up on saturday. All discharge instructions reviewed with patient and/or family. Voiced understanding. Scripts Hydrocodone/Acetaminophen (Hydrocodone-Acetamin 5-325 mg) 1 Each Tablet 1 TAB PO Q4H PRN for PAIN-MODERATE (5-7), #10 TAB Prov: EARNESTINE CAMARGO APRN 01/28/21 Clindamycin HCl (Clindamycin HCl) 300 Mg Capsule 300 MG PO TID, #21 CAP Prov: EARNESTINE CAMARGO APRN 01/28/21 ATTENDING PHYSICIAN NOTE: I was physically present as attending physician in the emergency department during the care of this patient, but I was not directly involved in the decision making or delivery of care for this patient. (BRADY HOFFMAN MD) EARNESTINE CAMARGO APRN Jan 28, 2021 10:44 BRADY HOFFMAN MD Jan 28, 2021 20:19
[2021-01-28 10:50] VITALS: BP 154/84
== END 2021-01-28 10:49 | disposition home or self-care (01) ==
LOC: EDUNIT# 09:22 → ER 09:27
DX: K08.89 Other specified disorders of teeth and supporting structures (principal); E11.42 Type 2 diabetes mellitus with diabetic polyneuropathy; I10 Essential (primary) hypertension; I25.10 Atherosclerotic heart disease of native coronary artery without angina pectoris; I48.91 Unspecified atrial fibrillation; F41.9 Anxiety disorder, unspecified; F32.9 Major depressive disorder, single episode, unspecified; M79.7 Fibromyalgia; G43.909 Migraine, unspecified, not intractable, without status migrainosus; K21.9 Gastro-esophageal reflux disease without esophagitis; J44.9 Chronic obstructive pulmonary disease, unspecified; Z86.73 Personal history of transient ischemic attack (TIA), and cerebral infarction without residual deficits; Z95.810 Presence of automatic (implantable) cardiac defibrillator; Z88.0 Allergy status to penicillin; Z88.1 Allergy status to other antibiotic agents; Z79.4 Long term (current) use of insulin; Z79.01 Long term (current) use of anticoagulants; Z79.899 Other long term (current) drug therapy
CPT/HCPCS: 99281

== ENCOUNTER → 2021-04-25 | Outpatient (CLI) | payer MEDICARE, MEDICAID ==
[~2021-04-25] MED LIST changes: +CLIN-144 PO
[2021-04-25 13:41] LABS: ALBUMIN 3.8 GM/DL (3.2-4.5); BILIRUBIN,TOTAL 0.4 MG/DL (0.1-1.0); CALCIUM 9.1 MG/DL (8.5-10.1); CREATININE SERUM 0.75 MG/DL (0.60-1.30); POTASSIUM 3.8 MMOL/L (3.6-5.0); TOTAL PROTEIN 6.6 GM/DL (6.4-8.2); URIC ACID 6.1 MG/DL (2.6-7.2)
[2021-04-25 14:03] LABS: FREE T4 (FREE THYROXINE) 0.99 NG/DL (0.70-1.48)
== END ==
LOC: LAB 12:39
PROVIDERS: ATTEND Family Medicine
DX: E11.9 Type 2 diabetes mellitus without complications (principal); E55.9 Vitamin D deficiency, unspecified; R53.83 Other fatigue; E53.9 Vitamin B deficiency, unspecified; M25.50 Pain in unspecified joint
CPT/HCPCS: 36415; 80053; 82306; 82607; 83036; 84439; 84443; 84550; 85652; 86141

== ENCOUNTER → 2021-05-18 | Outpatient (CLI) | payer MEDICARE, MEDICAID ==
[~2021-05-18] MED LIST changes: +ACET5ELI PO; +FLUC100T10 PO; -FLUC100T6 PO
--- NOTE | 2021-05-18 10:58 | Diagnostic Imaging Report ---
INDICATION: COPD and dyspnea. Time Of Exam: 10:17 AM Correlation is made with prior chest of 11/22/2020. Heart size is stable. Cardiac defibrillator is in place. Lungs are clear. There is no infiltrate or failure. No effusion or pneumothorax is detected. Postop changes lower cervical spine. IMPRESSION: No acute cardiopulmonary process is detected. Dictated by: Dictated on workstation # [id number]
== END ==
LOC: RAD 09:28
PROVIDERS: ATTEND Family Medicine
DX: J44.9 Chronic obstructive pulmonary disease, unspecified (principal)
CPT/HCPCS: 71046

== ENCOUNTER 2021-05-21 11:21 | Emergency (ER) | payer MEDICARE, MEDICAID ==
[~2021-05-21] VITALS: Ht 162.6 cm; Wt 97.5 kg
[~2021-05-21 11:21] MED LIST changes: -ACET5ELI PO
--- NOTE | 2021-05-21 12:02 | ED Cough/URI ---
General Chief Complaint: Cough/Cold/Flu Symptoms Stated Complaint: FEVER/COUGH/CONGESTION Source: patient Exam Limitations: no limitations (ALYCE KLEIN MED STUDENT) History of Present Illness Date Seen by Provider: May 21, 2021 Time Seen by Provider: 11:50 Initial Comments Mrs. Gregory is a 75 yo female with a PMH of Covid in january of last year, PE, COPD, and diabetes that presetns today due to cough, fever, headache, and sweats. She states this started about a week ago when she just noticed she had a runny nose and attributed it to allergies. She states it continued to get worse over the week and on saturday began to develop a dry cough. On saturday she was having fevers in the 102-103 range. She would take tylenol and would help a bit. She normally wears 2L O2 at night and has started using it during the day for comfort. She complains of cough, fever, headache, sweats, decreased appetite, SOB, and chest tightness. She states she has not had any dysuria or hematuria. Bowels are working okay. She does not drink, smoke, or use drugs. Has not been able to do any breathing treatments because she is missing a piece to her machine, also has not been able to check sugars because she got a new meter. (ALYCE KLEIN MED STUDENT) Initial Comments 75yo with cough, sob, fever (to 103) at home, runny nose, headache. Had a CXR 3 days ago - clear. Taking tylenol - last dose 0930. On 2L O2 pnc at night mostly - recent days more often during the day. Decreased appetite. No diarrhea, n/v. a little burning with urination. Not really taking anything for the cough. Not using her home nebulizer because her tubing is broken. States she's currently on steroids - for something to do with her fingers, Timing/Duration: week Severity/Quality: productive cough Modifying Factors: Improves With Albuterol Inhaler (JEYSON AUGUSTE MD) Allergies and Home Medications Allergies Coded Allergies: Penicillins (Unverified Allergy, Severe, Pt has received Cefepime & Ceftriaxone in the past w/o issue, 09/22/19) SWELLING, RASH, ITCHING vancomycin (Verified Allergy, Severe, Nausea, 06/21/20) COUGH, THROAT FEELING TIGHT Sulfa (Sulfonamide Antibiotics) (Verified Allergy, Mild, 09/22/19) RASH aspirin (Verified Adverse Reaction, Mild, ASPIRIN SENSITIVE, 09/22/19) UPSET STOMACH sumatriptan (Verified Adverse Reaction, Mild, PALPITATIONS, 09/22/19) IRRITABLE Patient Home Medication List Home Medication List Reviewed: Yes (JEYSON AUGUSTE MD) Acetaminophen (Acetaminophen) 500 Mg Tablet, 1,000 MG PO Q6H PRN for PAIN-MILD (1-4) OR TEMPATURE Prescribed by: NANNETTE REID on 02/05/20 0946 Acetaminophen with Codeine (Acetaminop-Codeine 120-12 mg/5) 5 Ml Solution, 5 ML PO Q6H PRN for cough Prescribed by: JEYSON AUGUSTE on 05/21/21 1350 Apixaban (Eliquis) 5 Mg Tablet, 5 MG PO BID, (Reported) Entered as Reported by: LORIN ZHENG on 01/29/20 1213 Baclofen (Baclofen) 10 Mg Tablet, 20 MG PO BID, (Reported) Entered as Reported by: LORIN ZHENG on 01/29/20 1213 Cefdinir (Cefdinir) 300 Mg Capsule, 300 MG PO BID Prescribed by: JEYSON AUGUSTE on 05/21/21 1349 Cephalexin (Cephalexin) 500 Mg Capsule, 500 MG PO TID, (Reported) Entered as Reported by: TAWANDA DRAKE on 06/21/20 1244 Cholecalciferol (Vitamin D3) (Vitamin D3) 25 Mcg Capsule, 25 MCG PO DAILY, (Reported) Entered as Reported by: LORIN ZHENG on 01/29/20 1213 Clindamycin HCl (Clindamycin HCl) 300 Mg Capsule, 300 MG PO TID Prescribed by: EARNESTINE CAMARGO on 01/28/21 1044 Furosemide (Furosemide) 20 Mg Tablet, 20 MG PO DAILY, (Reported) Entered as Reported by: TAWANDA DRAKE on 06/21/20 1244 Hydrocodone/Acetaminophen (Hydrocodone-Acetamin 5-325 mg) 1 Each Tablet, 1 TAB PO Q4H PRN for PAIN-MODERATE (5-7) Prescribed by: EARNESTINE CAMARGO on 01/28/21 1045 Insulin NPH Human Isophane (Humulin N) 100 Unit/1 Ml Vial, 30 UNIT SQ BID Prescribed by: TAWANDA DRAKE on 06/21/20 1244 Melatonin (Melatonin) 10 Mg Tablet, 10 MG PO, (Reported) Entered as Reported by: LORIN ZHENG on 01/29/20 1213 Metoprolol Tartrate (Metoprolol Tartrate) 50 Mg Tablet, 50 MG PO BID, (Reported) Entered as Reported by: LORIN ZHENG on 01/29/20 1213 Nitrofurantoin Macrocrystal (Nitrofurantoin) 100 Mg Capsule, 100 MG PO BID Prescribed by: PARMJIT VARGAS on 12/14/20 1047 Nystatin (Nystatin) 15 Gm Cream..g., 0 GM TP TID Prescribed by: NANNETTE REID on 02/05/20 0946 Omeprazole (Omeprazole) 40 Mg Capsule.dr, 40 MG PO BID, (Reported) Entered as Reported by: KEI YOUSIF on 03/03/17 1453 Potassium Chloride (Potassium Chloride) 10 Meq Tab.er.prt, 10 MEQ PO DAILY, (Reported) Entered as Reported by: TAWANDA DRAKE on 06/21/20 1244 Pramipexole Di-HCl (Pramipexole Dihydrochloride) 1 Mg Tablet, 1 MG PO 1600, (Reported) Entered as Reported by: MINA MORSE on 06/10/17 1445 Vitamin E Acetate (Vitamin E) 400 Unit Capsule, 400 UNIT PO DAILY, (Reported) Entered as Reported by: TAWANDA DRAKE on 06/21/20 1244 Review of Systems Review of Systems Constitutional: chills, dizziness, fever EENTM: nose congestion, other (rhinnorhea); No hearing loss, No vision loss Respiratory: cough; No hemoptysis, No phlegm; short of breath, wheezing Cardiovascular: No chest pain, No edema, No palpitations, No syncope Gastrointestinal: No abdominal pain, No constipation, No diarrhea, No melena, No nausea, No vomiting Genitourinary: No dysuria; frequency; No hematuria Musculoskeletal: No joint pain, No joint swelling Skin: No pruritus, No rash Psychiatric/Neurological: Headache; Denies Numbness (ALYCE KLEIN MED STUDENT) Constitutional: chills, dizziness, fever, malaise EENTM: other (runny nose) Respiratory: cough, short of breath Genitourinary: dysuria Psychiatric/Neurological: Headache (JEYSON AUGUSTE MD) All Other Systems Reviewed Negative Unless Noted: Yes (JEYSON AUGUSTE MD) Past Qomzymt-Vlgmdz-Tikpjb Hx Patient Social History Tobacco Use?: No Use of E-Cig and/or Vaping dev: No Substance use?: No Alcohol Use?: No (ALYCE KLEIN [employer] STUDENT) Immunizations Up To Date Tetanus Booster (TDap): Unknown PED Vaccines UTD: No Influenza Vaccine Up-to-Date: Yes; Up-to-Date First/Initial COVID19 Vaccinat: NONE Second COVID19 Vaccination Mike: NONE Third COVID19 Vaccination Date: NONE 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[employer]) Seasonal Allergies Seasonal Allergies: Yes (LAT[employer]) Past Medical History Surgery/Hospitalization HX: PMH: FIBRO, NEUROPATHY, COPD, HEART PROBLEMS, DEFIB/PACEMAKER, DM Surgeries: Yes (LAP CORNELIUS; C-SPINE FUSION/DISCECTOMY C5-C6 ) Abdominal, Appendectomy, Cardiac, Defibrillator, Eye Surgery, Gallbladder, Hysterectomy, Oophorectomy, Orthopedic, Pacemaker, Tonsillectomy Respiratory: Yes (O2 AT 2L/NC CONTINUOUSLY) Asthma, Pneumonia, Chronic Bronchitis, Sleep Apnea, COPD Currently Using CPAP: No Currently Using BIPAP: No Cardiac: Yes (PACEMAKER/DEFIBRILLATOR;CARDIAC ARREST DURING ENT SURGERY;PSVT/PALPITATIONS) Atrial Fibrillation, Chronic Edema/Swelling, Coronary Artery Disease, High Cholesterol, Hypertension, Irregular Heartbeat Neurological: Yes (PERIPHERAL NEUROPATHY HANDS/FEET; CHRONIC HEADACHES) Headaches /Migraines, Neuropathy, TIA 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 Disorders: No Female 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 Disorders: Denies 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 PAIN) Degenerate Disk Disease, Arthritis, Fibromyalgia, Chronic Back Pain, Fractures Endocrine: Yes Diabetes, Insulin dep, Diabetes, Non-Insulin dep HEENT: Yes (S/P BILATERAL CATARACT SURGERY + YAG PROCEDURE;ENT SURG WITH CARDIAC ARREST) Cataract Loss of Vision: Denies Hearing Impairment: Denies Cancer: No Psychosocial: Yes Anxiety, Depression Integumentary: Yes (NELIA INTERTRIGO) Pruritis Blood Disorders: No Adverse Reaction/Blood Tranf: No (ALYCE KLEIN MED STUDENT) Family Medical History Alzheimer's disease 19 FATHER Cardiovascular disease 19 FATHER 19 MOTHER Completed stroke 19 MOTHER Hypertension 19 FATHER 19 MOTHER Myocardial infarction 19 FATHER 19 MOTHER No Family History of: Diabetes mellitus PSH: -T12 KYPHOPLASTY -C5-C6 CERVICAL DISCECTOMY WITH FUSION 04/2018 -LAP CORNELIUS FUNDOPLICATION -EGD'S/ESOPHAGEAL DILATIONS/COLONOSCOPIES/POLYPECTOMIES -PACEMAKER/DEFIBRILLATOR -HYSTERECTOMY/BSO -CHOLECYSTECTOMY -APPENDECTOMY -TONSILLECTOMY -OVARIAN CYST SURGERIES X 4 -CYST FROM BACK REMOVED -ENT SURGERY -BILATERAL CARPAL TUNNEL REPAIR -BILATERAL CATARACT SURGERY + YAG PROCEDURE PMH: -CHRONIC NECK PAIN WITH CERVICAL RADICULOPATHY -RESTLESS LEG SYNDROME -CHRONIC BACK PAIN -T12 COMPRESSION WITH KYPHOPLASTY -HAS HAD POST OP RESPIRATORY FAILURE IN PAST -HAD CARDIAC ARREST WITH ENT SURGERY -CAROTID DISEASE--40-50% STENOSIS BILAT ICA -PAROXYSMAL A FIB--HAS REFUSED ORAL ANTICOAGULANTS -HX OF V-FIB AND BRADYCARDIA--S/P PACEMAKER/DEFIBRILLATOR -08/23/19--CARDIAC CATH--NO SIGNIFICANT CORONARY ARTERY DISEASE, EF 50% (ALYCE KLEIN STUDENT) Physical Exam Vital Signs - First Documented 05/21/21 05/21/21 11:45 13:09 Temp 37.0 Pulse 74 Resp 20 B/P (MAP) 148/83 (104) Pulse Ox 94 O2 Delivery Room Air O2 Flow Rate 2.00 (JEYSON AUGUSTE MD) Capillary Refill : (ALYCE KLEIN MED STUDENT) Height: 5'4.00" Weight: 215lbs. 0oz. [id number]; 37.00 BMI Method:Stated General Appearance: no apparent distress, obese Eyes: Bilateral Eye Normal Inspection, Bilateral Eye PERRL, Bilateral Eye EOMI HEENT: PERRL/EOMI, normal ENT inspection, pharynx normal Neck: non-tender, supple Respiratory: chest non-tender, no respiratory distress, no accessory muscle use, other (crackles and some wheezing on R lobes) Cardiovascular: regular rate, rhythm, no edema, no murmur Gastrointestinal: normal bowel sounds, non tender, soft Extremities: non-tender, no pedal edema, no calf tenderness Neurologic/Psychiatric: alert, normal mood/affect, oriented x 3 Skin: normal color, warm/dry (ALYCE KLEIN STUDENT) General Appearance: WD/WN, no apparent distress HEENT: other (mucous membranes appear moist - pallor) Neck: supple Respiratory: chest non-tender, no accessory muscle use, crackles (right base) Cardiovascular: regular rate, rhythm, no edema Gastrointestinal: normal bowel sounds, non tender, soft Extremities: non-tender, normal inspection, no pedal edema, no calf tenderness Neurologic/Psychiatric: alert, normal mood/affect, oriented x 3 Skin: normal color, warm/dry (JEYSON AUGUSTE MD) Focused Exam Lactate Level 05/21/21 12:35: Lactic Acid Level 0.88 (JEYSON AUGUSTE MD) Lactic Acid Level Laboratory Tests Test 05/21/21 12:35 Lactic Acid Level 0.88 MMOL/L (0.50-2.00) (JEYSON AUGUSTE MD) Procedures/Interventions Date of ETT Placement: Apr 21, 2018 Time of ETT Placement: 1744 (ALYCE KLEIN STUDENT) Progress/Results/Core Measures Suspected Sepsis SIRS Temperature: Pulse: Respiratory Rate: Blood Pressure / Mean: (ALYCE KLEIN) Results/Orders Lab Results Laboratory Tests Test 05/21/21 12:35 05/21/21 13:02 Range/Units White Blood Count 8.0 4.3-11.0 10^3/uL Red Blood Count 4.70 3.80-5.11 10^6/uL Hemoglobin 13.7 11.5-16.0 g/dL Hematocrit 43 35-52 % Mean Corpuscular Volume 92 80-99 fL Mean Corpuscular Hemoglobin 29 25-34 pg Mean Corpuscular Hemoglobin Concent 32 32-36 g/dL Red Cell Distribution Width 13.8 10.0-14.5 % Platelet Count 177 130-400 10^3/uL Mean Platelet Volume 9.1 9.0-12.2 fL Immature Granulocyte % (Auto) 1 % Neutrophils (%) (Auto) 85 H 42-75 % Lymphocytes (%) (Auto) 8 L 12-44 % Monocytes (%) (Auto) 6 0-12 % Eosinophils (%) (Auto) 0 0-10 % Basophils (%) (Auto) 0 0-10 % Neutrophils # (Auto) 6.8 1.8-7.8 10^3/uL Lymphocytes # (Auto) 0.6 L 1.0-4.0 10^3/uL Monocytes # (Auto) 0.5 0.0-1.0 10^3/uL Eosinophils # (Auto) 0.0 0.0-0.3 10^3/uL Basophils # (Auto) 0.0 0.0-0.1 10^3/uL Immature Granulocyte # (Auto) 0.1 0.0-0.1 10^3/uL Prothrombin Time 15.3 H 12.2-14.7 SEC INR Comment 1.2 0.8-1.4 Activated Partial Thromboplast Time 28 24-35 SEC Sodium Level 137 135-145 MMOL/L Potassium Level 3.9 3.6-5.0 MMOL/L Chloride Level 101 98-107 MMOL/L Carbon Dioxide Level 24 21-32 MMOL/L Anion Gap 12 5-14 MMOL/L Blood Urea Nitrogen 12 7-18 MG/DL Creatinine 0.81 0.60-1.30 MG/DL Estimat Glomerular Filtration Rate 76 BUN/Creatinine Ratio 15 Glucose Level 124 H 70-105 MG/DL Lactic Acid Level 0.88 0.50-2.00 MMOL/L Calcium Level 9.3 8.5-10.1 MG/DL Corrected Calcium 9.5 8.5-10.1 MG/DL Total Bilirubin 0.7 0.1-1.0 MG/DL Aspartate Amino Transf (AST/SGOT) 21 5-34 U/L Alanine Aminotransferase (ALT/SGPT) < 6 0-55 U/L Alkaline Phosphatase 102 40-136 U/L Total Protein 6.5 6.4-8.2 GM/DL Albumin 3.7 3.2-4.5 GM/DL Influenza Type A (RT-PCR) Not Detected Not Detecte Influenza Type B (RT-PCR) Not Detected Not Detecte SARS-CoV-2 RNA (RT-PCR) Not Detected Not Detecte Urine Color YELLOW Urine Clarity SL CLOUDY Urine pH 6.0 5-9 Urine Specific [place] 1.025 H 1.016-1.022 Urine Protein NEGATIVE NEGATIVE Urine Glucose (UA) NEGATIVE NEGATIVE Urine Ketones TRACE H NEGATIVE Urine Nitrite POSITIVE H NEGATIVE Urine Bilirubin NEGATIVE NEGATIVE Urine Urobilinogen 0.2 < = 1.0 MG/DL Urine Leukocyte Esterase 1+ H NEGATIVE Urine RBC (Auto) NEGATIVE NEGATIVE Urine RBC 0-2 /HPF Urine WBC 25-50 H /HPF Urine Squamous Epithelial Cells 5-10 /HPF Urine Crystals NONE /LPF Urine Bacteria FEW H /HPF Urine Casts NONE /LPF Urine Mucus NEGATIVE /LPF Urine Culture Indicated CULTURE PENDING (JEYSON AUGUSTE MD) My Orders Orders - JEYSON AUGUSTE MD Cbc With Automated Diff (05/21/21 12:24) Comprehensive Metabolic Panel (05/21/21 12:24) Blood Culture (05/21/21 12:24) Sputum Culture (05/21/21 12:24) Urinalysis (05/21/21 12:24) Urine Culture (05/21/21 12:24) Protime With Inr (05/21/21 12:24) Partial Thromboplastin Time (05/21/21 12:24) Chest 1 View, Ap/Pa Only (05/21/21 12:24) Ed Iv/Invasive Line Start (05/21/21 12:24) Ed Iv/Invasive Line Start (05/21/21 12:24) Vital Signs Adult Sepsis Patie Q15M (05/21/21 12:24) O2 (05/21/21 12:24) Remove Rings In Anticipation O (05/21/21 12:24) Lactic Acid Analyzer (05/21/21 12:24) Covid 19 Inhouse Test (05/21/21 12:24) Influenza A And B By Pcr (05/21/21 12:24) Isolation Central Supply Req (05/21/21 12:24) Albuterol Pre-Mix Nebs (Rt) (Proventil (05/21/21 13:00) Ipratropium 0.02% Neb Solution (Atrovent (05/21/21 13:00) Svn Small Volume Nebulizer (05/21/21 12:56) Svn Small Volume Nebulizer (05/21/21 12:56) Ceftriaxone 1 Gm Pre-Mix (Rocephin 1 Gm (05/21/21 13:45) (JEYSON AUGUSTE MD) Medications Given in ED Current Medications Medications Dose Ordered Sig/Alannah Route Start Time Stop Time Status Last Admin Dose Admin Albuterol Sulfate 2.5 mg ONCE ONCE INH 05/21/21 13:00 05/21/21 13:01 DC 05/21/21 13:07 2.5 MG Ceftriaxone Sodium/Dextrose 50 ml @ 100 mls/hr ONCE ONCE IV 05/21/21 13:45 05/21/21 14:14 05/21/21 13:45 100 MLS/HR Ipratropium Boody 0.5 mg ONCE ONCE IH 05/21/21 13:00 05/21/21 13:01 DC 05/21/21 13:07 0.5 MG (JEYSON AUGUSTE MD) Vital Signs/I&O 05/21/21 05/21/21 11:45 13:09 Temp 37.0 Pulse 74 Resp 20 B/P (MAP) 148/83 (104) Pulse Ox 94 97 O2 Delivery Room Air Nasal Cannula O2 Flow Rate 2.00 (JEYSON AUGUSTE MD) Vital Signs/I&O Capillary Refill : (ALYCE KLEIN MED STUDENT) Progress Note : Time: 13:44 Progress Note Patient re-examined after breathing treatment, wheezing is completely gone. Sats 96% on 2L. No increased work of breathing, No findings concerning for sepsis. No pneumonia identified on CXR. SHe does have a UTI. Will give her some tylenol with codeine for the cough. Omnicef for UTI/bronchitis/COPD. CLose follow up with PCP. (JEYSON AUGUSTE MD) Departure Impression Primary Impression: COPD exacerbation Additional Impressions: Bronchitis UTI (urinary tract infection) Qualified Codes: N39.0 - Urinary tract infection, site not specified Disposition: HOME, SELF-CARE Condition: Improved Departure-Patient Inst. Decision time for Depature: 13:46 (JEYSON AUGUSTE MD) Referrals: NANNETTE REID DO (PCP/Family) Primary Care Physician Patient Instructions: Acute Bronchitis, Adult (DC), Urinary Tract Infections in Adults Add. Discharge Instructions: Drink plenty of fluids to stay well hydrated. Cefdinir antibiotics twice a day for 7 days for UTI and Bronchitis/COPD. Use your nebulizer every 4-6 hours for shortness of breath, Tylenol with codeine syrup for cough as needed every 4-6 hours. Follow up with Dr Reid this week. Return to the ER for re-evaluation if you have any new, concerning or emergent complaints. Scripts Acetaminophen with Codeine (Acetaminop-Codeine 120-12 mg/5) 5 Ml Solution 5 ML PO Q6H PRN for cough, #120 ML Prov: JEYSON AUGUSTE MD 05/21/21 Cefdinir (Cefdinir) 300 Mg Capsule 300 MG PO BID, #14 CAP 0 Refills Prov: JEYSON AUGUSTE MD 05/21/21 Verification and Attestation of Medical Student E/M Service A medical student performed and documented this service in my presence. I reviewed and verified all information documented by the medical student and made modifications to such information, when appropriate. I personally performed the physical exam and medical decision making. Jeyson Auguste, May 21, 2021,13:57 (JEYSON AUGUSTE MD) Copy Copies To 1: NANNETTE REID DEREK MED STUDENT May 21, 2021 12:02 JEYSON AUGUSTE MD May 21, 2021 13:45
[2021-05-21 12:45] LABS: BASOPHILS % (AUTO) 0 % (0-10); EOSINOPHILS % (AUTO) 0 % (0-10); HEMATOCRIT 43 % (35-52); HEMOGLOBIN 13.7 g/dL (11.5-16.0); LYMPHOCYTES # (AUTO) 0.6 10^3/uL (1.0-4.0); LYMPHOCYTES % (AUTO) 8 % (12-44); MEAN CORPUSCULAR HEMOGLOBIN 29 pg (25-34); MEAN CORPUSCULAR HGB CONC 32 g/dL (32-36); MEAN CORPUSCULAR VOLUME 92 fL (80-99); MEAN PLATELET VOLUME 9.1 fL (9.0-12.2); MONOCYTES # (AUTO) 0.5 10^3/uL (0.0-1.0); MONOCYTES % (AUTO) 6 % (0-12); NEUTROPHILS # (AUTO) 6.8 10^3/uL (1.8-7.8); NEUTROPHILS % (AUTO) 85 % (42-75); PLATELET COUNT 177 10^3/uL (130-400)
[2021-05-21 12:54] LABS: ALBUMIN 3.7 GM/DL (3.2-4.5)
[2021-05-21 12:55] LABS: CHLORIDE 101 MMOL/L (98-107); POTASSIUM 3.9 MMOL/L (3.6-5.0); SODIUM 137 MMOL/L (135-145)
[2021-05-21 12:56] LABS: CALCIUM 9.3 MG/DL (8.5-10.1)
[2021-05-21 12:57] LABS: GLUCOSE 124 MG/DL (70-105); INR 1.2 (0.8-1.4); PROTHROMBIN TIME PATIENT 15.3 SEC (12.2-14.7); TOTAL PROTEIN 6.5 GM/DL (6.4-8.2)
[2021-05-21 12:58] LABS: CARBON DIOXIDE 24 MMOL/L (21-32)
[2021-05-21 12:59] LABS: BILIRUBIN,TOTAL 0.7 MG/DL (0.1-1.0)
[2021-05-21 13:00] LABS: ALKALINE PHOSPHATASE 102 U/L (40-136)
[2021-05-21] MEDS ORDERED: RT-ALBUTEROL SULF 2.5 MG/3 ML PRE-MIX VIAL INH ONE (13:00)
[2021-05-21] MEDS ORDERED: RT-IPRATROPIUM (ATROVENT) 0.5MG/2.5ML AMP IH ONE (13:00)
[2021-05-21 13:01] LABS: CREATININE SERUM 0.81 MG/DL (0.60-1.30); GFR ESTIMATED 76
[2021-05-21 13:02] LABS: BUN/CREATININE RATIO 15
[2021-05-21 13:04] LABS: ALANINE AMINOTRANSFERASE < 6 U/L (0-55)
[2021-05-21 13:13] LABS: BILIRUBIN,URINE NEGATIVE (NEGATIVE); CLARITY,URINE SL CLOUDY; COLOR,URINE YELLOW; GLUCOSE, URINE (UA) NEGATIVE (NEGATIVE); KETONES,URINE TRACE (NEGATIVE); LEUKOCYTE ESTERASE ,URINE 1+ (NEGATIVE); NITRITE,URINE POSITIVE (NEGATIVE); PROTEIN,URINE NEGATIVE (NEGATIVE)
[2021-05-21 13:26] LABS: BACTERIA,URINE FEW /HPF; RBC,URINE 0-2 /HPF; WBC,URINE 25-50 /HPF
--- NOTE | 2021-05-21 13:29 | Diagnostic Imaging Report ---
INDICATION: Runny nose, cough, headache and fever x8 days.. TECHNIQUE: Single view chest 1:14 PM. CORRELATION STUDY: 05/18/2021 FINDINGS: Left-sided AICD. Heart size remains enlarged, stable. Tortuous course of the thoracic aorta. Pulmonary vasculature within normal limits. The lungs are clear with no consolidating infiltrate. There is no significant effusion or pneumothorax. IMPRESSION: 1. Negative for acute abnormality of the chest. Dictated by: Dictated on workstation # [id number]
[2021-05-21] MEDS ORDERED: cefTRIAXone 1 GM PRE-MIX 50 ML IV ONE (13:45)
[2021-05-21] MEDS ORDERED: CEFD300C3 PO (13:49)
[2021-05-21] MEDS ORDERED: ACET5ELI PO (13:49)
[2021-05-21 14:18] VITALS: BP 149/75
== END 2021-05-21 14:17 | disposition home or self-care (01) ==
LOC: EDUNIT# 11:21 → ER 11:23
DX: J44.1 Chronic obstructive pulmonary disease with (acute) exacerbation (principal); N39.0 Urinary tract infection, site not specified; E66.9 Obesity, unspecified; Z68.37 Body mass index [BMI] 37.0-37.9, adult; Z20.822 Contact with and (suspected) exposure to COVID-19
CPT/HCPCS: 36415; 71045; 80053; 81000; 83605; 85025; 85610; 85730; 87040; 87077; 87088; 87186; 87636; 94640

== ENCOUNTER 2021-09-21 10:19 | Outpatient (RCR) | payer MEDICARE, MEDICAID ==
[~2021-09-21 10:19] MED LIST changes: +ACET5ELI PO
== END 2021-10-01 | disposition home or self-care (01) ==
PROVIDERS: ATTEND Family Medicine
DX: M54.6 Pain in thoracic spine (principal); M54.50 Low back pain, unspecified; E11.9 Type 2 diabetes mellitus without complications

== ENCOUNTER 2021-10-12 10:28 | Outpatient (RCR) | payer MEDICARE, MEDICAID ==
[~2021-10-12 10:28] MED LIST changes: +LEVO-55 PO; -LEVO500T81 PO; +LEVO750T PO; -LEVO750T39 PO; -NYST15CR TP; +NYST15CR35 TP; +POTA-177 PO; -POTA10TA37 PO
== END 2021-11-01 | disposition home or self-care (01) ==
PROVIDERS: ATTEND Family Medicine
DX: M54.6 Pain in thoracic spine (principal); M54.50 Low back pain, unspecified; E11.9 Type 2 diabetes mellitus without complications; J44.9 Chronic obstructive pulmonary disease, unspecified

== ENCOUNTER → 2021-10-23 | Outpatient (CLI) | payer MEDICARE, MEDICAID ==
[~2021-10-23] MED LIST changes: -LEVO-55 PO; +LEVO500T81 PO; -LEVO750T PO; +LEVO750T39 PO; +NYST15CR TP; -NYST15CR35 TP; -POTA-177 PO; +POTA10TA37 PO
--- NOTE | 2021-10-23 13:03 | Diagnostic Imaging Report ---
INDICATION: Back pain. FINDINGS: 3 views. The lumbosacral spine shows good alignment. Body height is well maintained throughout. Minimal hypertrophic lipping of the endplates. Facets show good alignment with mild hypertrophic changes noted at L4-L5 and L5-S1. Disc spaces are well maintained. Pedicles appear intact. SI joints are symmetric with minimal sclerotic change. IMPRESSION: Mild degenerative disc and facet disease. Overall appearance has shown mild progression since previous CT scan of 04/16/2020. Dictated by: Dictated on workstation # [id number]
--- NOTE | 2021-10-23 13:03 | Diagnostic Imaging Report ---
INDICATION: Back pain. COMPARISON: 10/08/2016. FINDINGS: An old compression fracture of T12 is again noted with kyphoplasty repair. The thoracic spine otherwise shows good alignment and body height. The pedicles are intact. No paraspinal masses. IMPRESSION: No acute changes have occurred. Old treated compression fracture of T12 again noted. Dictated by: Dictated on workstation # [id number]
== END ==
LOC: RAD 09:01
PROVIDERS: ATTEND Family Medicine
DX: M47.816 Spondylosis without myelopathy or radiculopathy, lumbar region (principal); M51.36 Other intervertebral disc degeneration, lumbar region; M48.54XS Collapsed vertebra, not elsewhere classified, thoracic region, sequela of fracture
CPT/HCPCS: 72072; 72100

== ENCOUNTER → 2021-10-25 | Outpatient (CLI) | payer MEDICARE, MEDICAID | LOC: CARD 10:00 | PROVIDERS: ATTEND Internal Medicine Cardiovascular Disease | DX: I27.21 Secondary pulmonary arterial hypertension (principal); I35.0 Nonrheumatic aortic (valve) stenosis | CPT/HCPCS: 93306 ==

== ENCOUNTER → 2021-11-17 | Outpatient (CLI) | payer MEDICARE, MEDICAID ==
[~2021-11-17] MED LIST changes: +LEVO-55 PO; -LEVO500T81 PO; +LEVO750T PO; -LEVO750T39 PO; -NYST15CR TP; +NYST15CR35 TP; +POTA-177 PO; -POTA10TA37 PO
[2021-11-17 09:32] LABS: BASOPHILS # (AUTO) 0.1 10^3/uL (0.0-0.1); BASOPHILS % (AUTO) 0 % (0-10); EOSINOPHILS % (AUTO) 0 % (0-10); HEMATOCRIT 41 % (35-52); HEMOGLOBIN 13.2 g/dL (11.5-16.0); LYMPHOCYTES % (AUTO) 8 % (12-44); MEAN CORPUSCULAR HEMOGLOBIN 29 pg (25-34); MEAN CORPUSCULAR HGB CONC 32 g/dL (32-36); MEAN CORPUSCULAR VOLUME 90 fL (80-99); MEAN PLATELET VOLUME 9.3 fL (9.0-12.2); MONOCYTES # (AUTO) 0.5 10^3/uL (0.0-1.0); MONOCYTES % (AUTO) 4 % (0-12); NEUTROPHILS # (AUTO) 10.3 10^3/uL (1.8-7.8); NEUTROPHILS % (AUTO) 85 % (42-75); PLATELET COUNT 279 10^3/uL (130-400); WHITE BLOOD COUNT 12.2 10^3/uL (4.3-11.0)
[2021-11-17 09:37] LABS: ALBUMIN 3.5 GM/DL (3.2-4.5); POTASSIUM 4.1 MMOL/L (3.6-5.0)
[2021-11-17 09:40] LABS: TOTAL PROTEIN 6.3 GM/DL (6.4-8.2)
[2021-11-17 09:41] LABS: BILIRUBIN,TOTAL 0.2 MG/DL (0.1-1.0)
[2021-11-17 09:43] LABS: CREATININE SERUM 0.83 MG/DL (0.60-1.30)
[2021-11-17 10:03] LABS: BAND NEUTROPHILS 0 %; BASOPHILS % (MANUAL) 0 %; EOSINOPHILS % (MANUAL) 0 %; LYMPHOCYTES % (MANUAL) 9 %; MONOCYTES % (MANUAL) 7 %; MYELOCYTES % 1 %; NEUTROPHILS % (MANUAL) 83 %; RBC MORPH NORMAL
[2021-11-17 10:07] LABS: FREE T4 (FREE THYROXINE) 0.95 NG/DL (0.70-1.48)
== END ==
LOC: LAB 09:00
PROVIDERS: ATTEND Family Medicine
DX: I35.0 Nonrheumatic aortic (valve) stenosis (principal); I26.99 Other pulmonary embolism without acute cor pulmonale; E11.65 Type 2 diabetes mellitus with hyperglycemia
CPT/HCPCS: 36415; 80053; 83036; 84439; 84443; 85007; 85027

== ENCOUNTER → 2021-11-30 | Outpatient (CLI) | payer MEDICARE, MEDICAID | LOC: CARD 09:14 | PROVIDERS: ATTEND Family Medicine | DX: R00.1 Bradycardia, unspecified (principal) ==

== ENCOUNTER → 2021-12-11 | Outpatient (CLI) | payer MEDICARE, MEDICAID ==
[~2021-12-11] MED LIST changes: +CATHETER FLUSH 10 ML SYR IV PRN; +HOLD METFORMIN - RECEIVED CONTRAST 20 ML VIAL IV SCH; +IOHEXOL 350 MG/ML 100 ML (OMNIPAQUE 350) VIAL IV ONE; +NS 100 ML (IVPB) BAG IV ONE
--- NOTE | 2021-12-11 15:32 | Diagnostic Imaging Report ---
PROCEDURE: CT abdomen with contrast only. TECHNIQUE: Multiple contiguous axial images were obtained through the abdomen after the administration of intravenous contrast. Auto Exposure Controls were utilized during the CT exam to meet ALARA standards for radiation dose reduction. INDICATION: Elevated catecholamines. COMPARISON: Correlation is made with prior CT from 06/23/2019. FINDINGS: Lung bases are clear. No liver mass is identified. Gallbladder is surgically absent. No biliary ductal dilatation is seen. Pancreas and spleen are unremarkable. No discrete adrenal mass is identified. Kidneys are unremarkable apart from probable small nonobstructing calculus in the lower pole of the right kidney. Aorta is calcified but nonaneurysmal. No central retroperitoneal or mesenteric lymphadenopathy is detected. There is no ascites. IMPRESSION: 1. Status post cholecystectomy. 2. Probable nonobstructing right renal calculus. There is no hydronephrosis. 3. No evidence of adrenal mass. Dictated by: Dictated on workstation # [id number]
== END ==
LOC: RAD 11:12
PROVIDERS: ATTEND Family Medicine
DX: R82.5 Elevated urine levels of drugs, medicaments and biological substances (principal); R09.89 Other specified symptoms and signs involving the circulatory and respiratory systems; Z90.49 Acquired absence of other specified parts of digestive tract
CPT/HCPCS: 74160

== ENCOUNTER 2022-01-24 13:55 | Emergency (ER) | payer OTHER, MEDICAID ==
[~2022-01-24] VITALS: Ht 162 cm; Wt 99.0 kg
[~2022-01-24 13:55] MED LIST changes: +ALBU8.5H6 IH; -CATHETER FLUSH 10 ML SYR IV PRN; -HOLD METFORMIN - RECEIVED CONTRAST 20 ML VIAL IV SCH; -IOHEXOL 350 MG/ML 100 ML (OMNIPAQUE 350) VIAL IV ONE; -NS 100 ML (IVPB) BAG IV ONE; -RT-ALBUINH IH
--- NOTE | 2022-01-24 14:22 | ED Cardiac General ---
History of Present Illness General Chief Complaint: Cardiac/General Problems Stated Complaint: SOB | CHEST PAINS | GENERAL PAIN Nursing Triage Note: ARRIVED VIA AMB WITH COMPLAINTS OF SVT. STATES SHE HAS FELT LIKE HER HEART HAS BEEN RACING OFF AND ON FOR DAYS. CALLED HER DR TODAY WHO TOLD HER TO COME TO THE ER. Source: patient Exam Limitations: no limitations History of Present Illness Date Seen by Provider: Jan 24, 2022 Time Seen by Provider: 14:22 Allergies and Home Medications Allergies Coded Allergies: Penicillins (Unverified Allergy, Severe, Pt has received Cefepime & Ceftriaxone in the past w/o issue, 09/22/19) SWELLING, RASH, ITCHING vancomycin (Verified Allergy, Severe, Nausea, 06/21/20) COUGH, THROAT FEELING TIGHT Sulfa (Sulfonamide Antibiotics) (Verified Allergy, Mild, 09/22/19) RASH aspirin (Verified Adverse Reaction, Mild, ASPIRIN SENSITIVE, 09/22/19) UPSET STOMACH sumatriptan (Verified Adverse Reaction, Mild, PALPITATIONS, 09/22/19) IRRITABLE Patient Home Medication List Acetaminophen (Acetaminophen) 500 Mg Tablet, 1,000 MG PO Q6H PRN for PAIN-MILD (1-4) OR TEMPATURE Prescribed by: NANNETTE REID on 02/05/20 0946 Acetaminophen with Codeine (Acetaminop-Codeine 120-12 mg/5) 5 Ml Solution, 5 ML PO Q6H PRN for cough Prescribed by: JEYSON AUGUSTE on 05/21/21 1350 Apixaban (Eliquis) 5 Mg Tablet, 5 MG PO BID, (Reported) Entered as Reported by: LORIN ZHENG on 01/29/20 1213 Baclofen (Baclofen) 10 Mg Tablet, 20 MG PO BID, (Reported) Entered as Reported by: LORIN ZHENG on 01/29/20 1213 Cefdinir (Cefdinir) 300 Mg Capsule, 300 MG PO BID Prescribed by: JEYSON AUGUSTE on 05/21/21 1349 Cephalexin (Cephalexin) 500 Mg Capsule, 500 MG PO TID, (Reported) Entered as Reported by: TAWANDA DRAKE on 06/21/20 1244 Cholecalciferol (Vitamin D3) (Vitamin D3) 25 Mcg Capsule, 25 MCG PO DAILY, (Reported) Entered as Reported by: LORIN ZHENG on 01/29/20 1213 Clindamycin HCl (Clindamycin HCl) 300 Mg Capsule, 300 MG PO TID Prescribed by: EARNESTINE CAMARGO on 01/28/21 1044 Furosemide (Furosemide) 20 Mg Tablet, 20 MG PO DAILY, (Reported) Entered as Reported by: TAWANDA DRAKE on 06/21/20 1244 Hydrocodone/Acetaminophen (Hydrocodone-Acetamin 5-325 mg) 1 Each Tablet, 1 TAB PO Q4H PRN for PAIN-MODERATE (5-7) Prescribed by: EARNESTINE CAMARGO on 01/28/21 1045 Insulin NPH Human Isophane (Humulin N) 100 Unit/1 Ml Vial, 30 UNIT SQ BID Prescribed by: TAWANDA DRAKE on 06/21/20 1244 Melatonin (Melatonin) 10 Mg Tablet, 10 MG PO, (Reported) Entered as Reported by: LORIN ZHENG on 01/29/20 1213 Metoprolol Tartrate (Metoprolol Tartrate) 50 Mg Tablet, 50 MG PO BID, (Reported) Entered as Reported by: LORIN ZHENG on 01/29/20 1213 Nitrofurantoin Macrocrystal (Nitrofurantoin) 100 Mg Capsule, 100 MG PO BID Prescribed by: PARMJIT VARGAS on 12/14/20 1047 Nystatin (Nystatin) 15 Gm Cream..g., 0 GM TP TID Prescribed by: NANNETTE REID on 02/05/20 0946 Omeprazole (Omeprazole) 40 Mg Capsule.dr, 40 MG PO BID, (Reported) Entered as Reported by: KEI YOUSIF on 03/03/17 1453 Potassium Chloride (Potassium Chloride) 10 Meq Tab.er.prt, 10 MEQ PO DAILY, (Reported) Entered as Reported by: TAWANDA DRAKE on 06/21/20 1244 Pramipexole Di-HCl (Pramipexole Dihydrochloride) 1 Mg Tablet, 1 MG PO 1600, (Reported) Entered as Reported by: MINA MORSE on 06/10/17 1445 Vitamin E Acetate (Vitamin E) 400 Unit Capsule, 400 UNIT PO DAILY, (Reported) Entered as Reported by: TAWANDA DRAKE on 06/21/20 1244 Past Bpgejms-Zhuyse-Amcyew Hx Patient Social History Tobacco Use?: No Substance use?: No Alcohol Use?: No Immunizations Up To Date Tetanus Booster (TDap): Unknown PED Vaccines UTD: No First/Initial COVID19 Vaccinat: NONE Second COVID19 Vaccination Mike: NONE Third COVID19 Vaccination Date: NONE Seasonal Allergies Seasonal Allergies: Yes Past Medical History Surgery/Hospitalization HX: PMH: FIBRO, NEUROPATHY, COPD, HEART PROBLEMS, DEFIB/PACEMAKER, DM Surgeries: Yes (LAP CORNELIUS; C-SPINE FUSION/DISCECTOMY C5-C6 ) Abdominal, Appendectomy, Cardiac, Defibrillator, Eye Surgery, Gallbladder, Hysterectomy, Oophorectomy, Orthopedic, Pacemaker, Tonsillectomy Respiratory: Yes (O2 AT 2L/NC CONTINUOUSLY) Asthma, Pneumonia, Chronic Bronchitis, Sleep Apnea, COPD Currently Using CPAP: No Currently Using BIPAP: No Cardiac: Yes (PACEMAKER/DEFIBRILLATOR;CARDIAC ARREST DURING ENT SURGERY;PSVT/PALPITATIONS) Atrial Fibrillation, Chronic Edema/Swelling, Coronary Artery Disease, High Cholesterol, Hypertension, Irregular Heartbeat Neurological: Yes (PERIPHERAL NEUROPATHY HANDS/FEET; CHRONIC HEADACHES) Headaches /Migraines, Neuropathy, TIA 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 Disorders: No Female 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 Disorders: Denies 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 PAIN) Degenerate Disk Disease, Arthritis, Fibromyalgia, Chronic Back Pain, Fractures Endocrine: Yes Diabetes, Insulin dep, Diabetes, Non-Insulin dep HEENT: Yes (S/P BILATERAL CATARACT SURGERY + YAG PROCEDURE;ENT SURG WITH CARDIAC ARREST) Cataract Loss of Vision: Denies Hearing Impairment: Denies Cancer: No Psychosocial: Yes Anxiety, Depression Integumentary: Yes (NELIA INTERTRIGO) Pruritis Blood Disorders: No Adverse Reaction/Blood Tranf: No Family Medical History Alzheimer's disease 19 FATHER Cardiovascular disease 19 FATHER 19 MOTHER Completed stroke 19 MOTHER Hypertension 19 FATHER 19 MOTHER Myocardial infarction 19 FATHER 19 MOTHER No Family History of: Diabetes mellitus PSH: -T12 KYPHOPLASTY -C5-C6 CERVICAL DISCECTOMY WITH FUSION 04/2018 -LAP CORNELIUS FUNDOPLICATION -EGD'S/ESOPHAGEAL DILATIONS/COLONOSCOPIES/POLYPECTOMIES -PACEMAKER/DEFIBRILLATOR -HYSTERECTOMY/BSO -CHOLECYSTECTOMY -APPENDECTOMY -TONSILLECTOMY -OVARIAN CYST SURGERIES X 4 -CYST FROM BACK REMOVED -ENT SURGERY -BILATERAL CARPAL TUNNEL REPAIR -BILATERAL CATARACT SURGERY + YAG PROCEDURE PMH: -CHRONIC NECK PAIN WITH CERVICAL RADICULOPATHY -RESTLESS LEG SYNDROME -CHRONIC BACK PAIN -T12 COMPRESSION WITH KYPHOPLASTY -HAS HAD POST OP RESPIRATORY FAILURE IN PAST -HAD CARDIAC ARREST WITH ENT SURGERY -CAROTID DISEASE--40-50% STENOSIS BILAT ICA -PAROXYSMAL A FIB--HAS REFUSED ORAL ANTICOAGULANTS -HX OF V-FIB AND BRADYCARDIA--S/P PACEMAKER/DEFIBRILLATOR -08/23/19--CARDIAC CATH--NO SIGNIFICANT CORONARY ARTERY DISEASE, EF 50% Physical Exam Vital Signs Vital Signs - First Documented 01/24/22 14:08 Temp 36.3 Pulse 68 Resp 16 B/P (MAP) 159/74 (102) Pulse Ox 98 O2 Delivery Room Air Capillary Refill : Less Than 3 Seconds Height, Weight, BMI Height: 5'4.00" Weight: 215lbs. 0oz. 97.006970fg; 37.00 BMI Method:Stated Procedures/Interventions Date of ETT Placement: Apr 21, 2018 Time of ETT Placement: 1744 Progress/Results/Core Measures Results/Orders Lab Results Laboratory Tests Test 01/24/22 14:20 01/24/22 15:02 Range/Units White Blood Count 13.2 H 4.3-11.0 10^3/uL Red Blood Count 4.61 3.80-5.11 10^6/uL Hemoglobin 14.1 11.5-16.0 g/dL Hematocrit 42 35-52 % Mean Corpuscular Volume 92 80-99 fL Mean Corpuscular Hemoglobin 31 25-34 pg Mean Corpuscular Hemoglobin Concent 33 32-36 g/dL Red Cell Distribution Width 13.9 10.0-14.5 % Platelet Count 259 130-400 10^3/uL Mean Platelet Volume 9.9 9.0-12.2 fL Immature Granulocyte % (Auto) 2 % Neutrophils (%) (Auto) 77 H 42-75 % Lymphocytes (%) (Auto) 13 12-44 % Monocytes (%) (Auto) 7 0-12 % Eosinophils (%) (Auto) 1 0-10 % Basophils (%) (Auto) 1 0-10 % Neutrophils # (Auto) 10.2 H 1.8-7.8 10^3/uL Lymphocytes # (Auto) 1.7 1.0-4.0 10^3/uL Monocytes # (Auto) 0.9 0.0-1.0 10^3/uL Eosinophils # (Auto) 0.1 0.0-0.3 10^3/uL Basophils # (Auto) 0.1 0.0-0.1 10^3/uL Immature Granulocyte # (Auto) 0.2 H 0.0-0.1 10^3/uL Percent Immature Platelet Fraction 5.1 0.0-7.6 % Sodium Level 139 135-145 MMOL/L Potassium Level 3.9 3.6-5.0 MMOL/L Chloride Level 105 98-107 MMOL/L Carbon Dioxide Level 23 21-32 MMOL/L Anion Gap 11 5-14 MMOL/L Blood Urea Nitrogen 10 7-18 MG/DL Creatinine 0.83 0.60-1.30 MG/DL Estimat Glomerular Filtration Rate 73 BUN/Creatinine Ratio 12 Glucose Level 123 H 70-105 MG/DL Calcium Level 9.5 8.5-10.1 MG/DL Corrected Calcium 9.7 8.5-10.1 MG/DL Magnesium Level 1.7 1.6-2.4 MG/DL Total Bilirubin 0.5 0.1-1.0 MG/DL Aspartate Amino Transf (AST/SGOT) 14 5-34 U/L Alanine Aminotransferase (ALT/SGPT) 6 0-55 U/L Alkaline Phosphatase 118 40-136 U/L Total Creatine Kinase 47 29-168 U/L Creatine Kinase MB 1.5 <6.6 NG/ML Myoglobin 55.8 10.0-92.0 NG/ML Troponin I < 0.028 <0.028 NG/ML B-Type Natriuretic Peptide 48.6 <100.0 PG/ML Total Protein 7.0 6.4-8.2 GM/DL Albumin 3.8 3.2-4.5 GM/DL Lipase 6 L 8-78 U/L Prothrombin Time 14.1 12.2-14.7 SEC INR Comment 1.0 0.8-1.4 Activated Partial Thromboplast Time 25 24-35 SEC D-Dimer >= 0.27 0.00-0.49 UG/ML My Orders Orders - [employer] DELIVERY DRIVER Cbc With Automated Diff (01/24/22 14:21) Magnesium (01/24/22 14:21) Chest 1 View, Ap/Pa Only (01/24/22 14:21) Comprehensive Metabolic Panel (01/24/22 14:21) Myoglobin Serum (01/24/22 14:21) Protime With Inr (01/24/22 14:21) Partial Thromboplastin Time (01/24/22 14:21) O2 (01/24/22 14:21) Monitor-Rhythm Ecg Trace Only (01/24/22 14:21) Ed Iv/Invasive Line Start (01/24/22 14:21) Creatine Kinase (01/24/22 14:21) Creatine Kinase Mb (01/24/22 14:21) Lipase (01/24/22 14:21) Bnp Josh (01/24/22 14:21) Fibrin Degradation Products (01/24/22 14:21) Troponin I Josh (01/24/22 14:21) Vital Signs/I&O 01/24/22 14:08 Temp 36.3 Pulse 68 Resp 16 B/P (MAP) 159/74 (102) Pulse Ox 98 O2 Delivery Room Air Blood Pressure Mean: 102 Departure Impression Primary Impression: SVT (supraventricular tachycardia) Disposition: 01 HOME, SELF-CARE Condition: Improved Departure-Patient Inst. Decision time for Depature: 17:04 Referrals: NANNETTE REID DO (PCP/Family) Primary Care Physician Patient Instructions: Supraventricular Tachycardia (SVT) Add. Discharge Instructions: Plan: 1. Keep follow-up with Dr. Cerda as previously scheduled. 2. Follow-up with Dr. Reid later this week. 3. You have been given information regarding SVT and Valsalva maneuvers. You can try these maneuvers if you feel your heart racing or palpitations. If you are unable to get the feeling to stop you can return to the emergency department. 4. Avoid caffeine, energy drinks, chocolate. As discussed you can always try taking 2 of your Ativan to see if this improves your symptoms. All discharge instructions reviewed with patient and/or family. Voiced understanding. [employer] DELIVERY DRIVER Jan 24, 2022 14:22
[2022-01-24 14:27] LABS: MEAN CORPUSCULAR HGB CONC 33 g/dL (32-36)
[2022-01-24 14:28] LABS: BASOPHILS # (AUTO) 0.1 10^3/uL (0.0-0.1); BASOPHILS % (AUTO) 1 % (0-10); EOSINOPHILS # (AUTO) 0.1 10^3/uL (0.0-0.3); EOSINOPHILS % (AUTO) 1 % (0-10); HEMATOCRIT 42 % (35-52); HEMOGLOBIN 14.1 g/dL (11.5-16.0); LYMPHOCYTES # (AUTO) 1.7 10^3/uL (1.0-4.0); LYMPHOCYTES % (AUTO) 13 % (12-44); MEAN CORPUSCULAR HEMOGLOBIN 31 pg (25-34); MEAN CORPUSCULAR VOLUME 92 fL (80-99); MEAN PLATELET VOLUME 9.9 fL (9.0-12.2); MONOCYTES # (AUTO) 0.9 10^3/uL (0.0-1.0); MONOCYTES % (AUTO) 7 % (0-12); NEUTROPHILS # (AUTO) 10.2 10^3/uL (1.8-7.8); NEUTROPHILS % (AUTO) 77 % (42-75); PLATELET COUNT 259 10^3/uL (130-400); WHITE BLOOD COUNT 13.2 10^3/uL (4.3-11.0)
[2022-01-24 14:45] LABS: ALBUMIN 3.8 GM/DL (3.2-4.5); POTASSIUM 3.9 MMOL/L (3.6-5.0)
[2022-01-24 14:46] LABS: CALCIUM 9.5 MG/DL (8.5-10.1)
[2022-01-24 14:49] LABS: BILIRUBIN,TOTAL 0.5 MG/DL (0.1-1.0)
[2022-01-24 14:51] LABS: CREATININE SERUM 0.83 MG/DL (0.60-1.30)
[2022-01-24 14:55] LABS: MAGNESIUM 1.7 MG/DL (1.6-2.4)
[2022-01-24 15:02] LABS: CREATINE KINASE MB 1.5 NG/ML (<6.6)
--- NOTE | 2022-01-24 15:12 | Diagnostic Imaging Report ---
Indication: Chest pain. Compared to 05/21/2021 Findings: Heart size within normal limits, pacemaker device stable. The lungs clear. No failure, effusion, pneumothorax or focal infiltrate. Impression: Stable chest. Dictated by: Dictated on workstation # [id number]
[2022-01-24 16:04] LABS: PROTHROMBIN TIME PATIENT 14.1 SEC (12.2-14.7)
[2022-01-24 17:16] VITALS: BP 139/72
== END 2022-01-24 17:11 | disposition home or self-care (01) ==
LOC: EDUNIT# 13:55 → ER 13:58
DX: I47.1 Supraventricular tachycardia (principal); E11.9 Type 2 diabetes mellitus without complications; Z79.4 Long term (current) use of insulin; Z28.310 Unvaccinated for COVID-19
CPT/HCPCS: 36415; 71045; 80053; 82550; 82553; 83690; 83735; 83874; 83880; 84484; 85025; 85379; 85610; 85730; 93041

== ENCOUNTER 2022-01-26 10:49 | Emergency (ER) | payer MEDICARE, MEDICAID ==
[~2022-01-26] VITALS: Ht 160 cm; Wt 100.0 kg
[2022-01-26 12:42] LABS: BASOPHILS # (AUTO) 0.1 10^3/uL (0.0-0.1); BASOPHILS % (AUTO) 1 % (0-10); EOSINOPHILS # (AUTO) 0.1 10^3/uL (0.0-0.3); EOSINOPHILS % (AUTO) 1 % (0-10); HEMATOCRIT 43 % (35-52); HEMOGLOBIN 13.8 g/dL (11.5-16.0); LYMPHOCYTES # (AUTO) 1.7 10^3/uL (1.0-4.0); LYMPHOCYTES % (AUTO) 13 % (12-44); MEAN CORPUSCULAR HEMOGLOBIN 31 pg (25-34); MEAN CORPUSCULAR HGB CONC 32 g/dL (32-36); MEAN CORPUSCULAR VOLUME 95 fL (80-99); MONOCYTES % (AUTO) 7 % (0-12); NEUTROPHILS # (AUTO) 10.4 10^3/uL (1.8-7.8); NEUTROPHILS % (AUTO) 77 % (42-75); PLATELET COUNT 290 10^3/uL (130-400); WHITE BLOOD COUNT 13.5 10^3/uL (4.3-11.0)
--- NOTE | 2022-01-26 12:42 | Diagnostic Imaging Report ---
HISTORY: Chest pain and discomfort. TECHNIQUE: Frontal view of the chest. COMPARISON: 01/24/2022 FINDINGS: There is stable cardiomegaly. No consolidation is seen. There is no pleural effusion or pneumothorax. The left-sided automatic implantable cardiac defibrillator is stable. IMPRESSION: 1. Stable cardiomegaly with no acute pulmonary abnormality seen. Dictated by: Dictated on workstation # [id number]
[2022-01-26 12:54] LABS: ALBUMIN 3.6 GM/DL (3.2-4.5); CHLORIDE 104 MMOL/L (98-107); POTASSIUM 3.4 MMOL/L (3.6-5.0); SODIUM 139 MMOL/L (135-145)
[2022-01-26 12:55] LABS: CALCIUM 9.1 MG/DL (8.5-10.1)
[2022-01-26 12:57] LABS: GLUCOSE 93 MG/DL (70-105); TOTAL PROTEIN 6.4 GM/DL (6.4-8.2)
[2022-01-26 12:58] LABS: BILIRUBIN,TOTAL 0.4 MG/DL (0.1-1.0); CARBON DIOXIDE 24 MMOL/L (21-32)
[2022-01-26 13:00] LABS: ALKALINE PHOSPHATASE 108 U/L (40-136); CREATININE SERUM 0.85 MG/DL (0.60-1.30); GFR ESTIMATED 71
[2022-01-26 13:01] LABS: BUN/CREATININE RATIO 19
[2022-01-26 13:03] LABS: ALANINE AMINOTRANSFERASE 8 U/L (0-55)
--- NOTE | 2022-01-26 13:24 | ED Cardiac General ---
History of Present Illness General Chief Complaint: Cardiac/General Problems Stated Complaint: RAPID HEART BEAT Nursing Triage Note: PT TO TRIAGE W C/O SHARP LOWER BACK PAIN SX THIS AM AND PT BELIEVES SHE IS IN SVT. PT A&OX4. Source: patient Exam Limitations: no limitations (THERESA CERON APRN) History of Present Illness Date Seen by Provider: Jan 26, 2022 Time Seen by Provider: 11:20 Initial Comments Patient is a 76-year-old female who presents to the emergency department for evaluation of palpitations and feeling like she may be in SVT. She denies any specific chest pain. Some shortness of breath over the past few days. She states she has had the symptoms on and off for the last week. Denies any worsening swelling in her lower extremities. No recent fever or other sick symptoms. (THERESA CERON APRN) Allergies and Home Medications Allergies Coded Allergies: Penicillins (Unverified Allergy, Severe, Pt has received Cefepime & Ceftriaxone in the past w/o issue, 09/22/19) SWELLING, RASH, ITCHING vancomycin (Verified Allergy, Severe, Nausea, 06/21/20) COUGH, THROAT FEELING TIGHT Sulfa (Sulfonamide Antibiotics) (Verified Allergy, Mild, 09/22/19) RASH aspirin (Verified Adverse Reaction, Mild, ASPIRIN SENSITIVE, 09/22/19) UPSET STOMACH sumatriptan (Verified Adverse Reaction, Mild, PALPITATIONS, 09/22/19) IRRITABLE Patient Home Medication List Home Medication List Reviewed: Yes (THERESA CERON APRN) Acetaminophen (Acetaminophen) 500 Mg Tablet, 1,000 MG PO Q6H PRN for PAIN-MILD (1-4) OR TEMPATURE Prescribed by: NANNETTE REVELES on 02/05/20 0946 Acetaminophen with Codeine (Acetaminop-Codeine 120-12 mg/5) 5 Ml Solution, 5 ML PO Q6H PRN for cough Prescribed by: JEYSON AUGUSTE on 05/21/21 1350 Apixaban (Eliquis) 5 Mg Tablet, 5 MG PO BID, (Reported) Entered as Reported by: LORIN ZHENG on 01/29/20 1213 Baclofen (Baclofen) 10 Mg Tablet, 20 MG PO BID, (Reported) Entered as Reported by: LORIN ZHENG on 01/29/20 1213 Cefdinir (Cefdinir) 300 Mg Capsule, 300 MG PO BID Prescribed by: JEYSON AUGUSTE on 05/21/21 1349 Cephalexin (Cephalexin) 500 Mg Capsule, 500 MG PO TID, (Reported) Entered as Reported by: TAWANDA DRAKE on 06/21/20 1244 Cholecalciferol (Vitamin D3) (Vitamin D3) 25 Mcg Capsule, 25 MCG PO DAILY, (Reported) Entered as Reported by: LORIN ZHENG on 01/29/20 1213 Clindamycin HCl (Clindamycin HCl) 300 Mg Capsule, 300 MG PO TID Prescribed by: EARNESTINE CAMARGO on 01/28/21 1044 Furosemide (Furosemide) 20 Mg Tablet, 20 MG PO DAILY, (Reported) Entered as Reported by: TAWANDA DRAKE on 06/21/20 1244 Hydrocodone/Acetaminophen (Hydrocodone-Acetamin 5-325 mg) 1 Each Tablet, 1 TAB PO Q4H PRN for PAIN-MODERATE (5-7) Prescribed by: EARNESTINE CAMARGO on 01/28/21 1045 Insulin NPH Human Isophane (Humulin N) 100 Unit/1 Ml Vial, 30 UNIT SQ BID Prescribed by: TAWANDA DRAKE on 06/21/20 1244 Melatonin (Melatonin) 10 Mg Tablet, 10 MG PO, (Reported) Entered as Reported by: LORIN ZHENG on 01/29/20 1213 Metoprolol Tartrate (Metoprolol Tartrate) 50 Mg Tablet, 50 MG PO BID, (Reported) Entered as Reported by: LORIN ZHENG on 01/29/20 1213 Nitrofurantoin Macrocrystal (Nitrofurantoin) 100 Mg Capsule, 100 MG PO BID Prescribed by: PARMJIT VARGAS on 12/14/20 1047 Nystatin (Nystatin) 15 Gm Cream..g., 0 GM TP TID Prescribed by: NANNETTE REVELES on 02/05/20 0946 Omeprazole (Omeprazole) 40 Mg Capsule.dr, 40 MG PO BID, (Reported) Entered as Reported by: KEI YOUSIF on 03/03/17 1453 Potassium Chloride (Potassium Chloride) 10 Meq Tab.er.prt, 10 MEQ PO DAILY, (Reported) Entered as Reported by: TAWANDA DRAKE on 06/21/20 1244 Pramipexole Di-HCl (Pramipexole Dihydrochloride) 1 Mg Tablet, 1 MG PO 1600, (Reported) Entered as Reported by: MINA MORSE on 06/10/17 1445 Vitamin E Acetate (Vitamin E) 400 Unit Capsule, 400 UNIT PO DAILY, (Reported) Entered as Reported by: TAWANDA DRAKE on 06/21/20 1244 Review of Systems Review of Systems Constitutional: no symptoms reported EENTM: No Symptoms Reported Respiratory: No Symptoms Reported Cardiovascular: Palpitations Gastrointestinal: No Symptoms Reported Genitourinary: No Symptoms Reported (THERESA CERON APRN) Past Eqpyfsb-Jfxeit-Llkbor Hx Patient Social History Tobacco Use?: No Use of E-Cig and/or Vaping dev: No Substance use?: No Alcohol Use?: No (THERESA CERON APRN) Immunizations Up To Date Tetanus Booster (TDap): Unknown PED Vaccines UTD: No First/Initial COVID19 Vaccinat: NONE Second COVID19 Vaccination Mike: NONE Third COVID19 Vaccination Date: NONE (THERESA CERON APRN) Seasonal Allergies Seasonal Allergies: Yes (THERESA CERON APRN) Past Medical History Surgery/Hospitalization HX: PMH: FIBRO, NEUROPATHY, COPD, HEART PROBLEMS, DEFIB/PACEMAKER, DM Surgeries: Yes (LAP CORNELIUS; C-SPINE FUSION/DISCECTOMY C5-C6 ) Abdominal, Appendectomy, Cardiac, Defibrillator, Eye Surgery, Gallbladder, Hysterectomy, Oophorectomy, Orthopedic, Pacemaker, Tonsillectomy Respiratory: Yes (O2 AT 2L/NC CONTINUOUSLY) Asthma, Pneumonia, Chronic Bronchitis, Sleep Apnea, COPD Currently Using CPAP: No Currently Using BIPAP: No Cardiac: Yes (PACEMAKER/DEFIBRILLATOR;CARDIAC ARREST DURING ENT SURGERY;PSVT/PALPITATIONS) Atrial Fibrillation, Chronic Edema/Swelling, Coronary Artery Disease, High Cholesterol, Hypertension, Irregular Heartbeat Neurological: Yes (PERIPHERAL NEUROPATHY HANDS/FEET; CHRONIC HEADACHES) Headaches /Migraines, Neuropathy, TIA 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 Disorders: No Female 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 Disorders: Denies 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 PAIN) Degenerate Disk Disease, Arthritis, Fibromyalgia, Chronic Back Pain, Fractures Endocrine: Yes Diabetes, Insulin dep, Diabetes, Non-Insulin dep HEENT: Yes (S/P BILATERAL CATARACT SURGERY + YAG PROCEDURE;ENT SURG WITH CARDIAC ARREST) Cataract Loss of Vision: Denies Hearing Impairment: Denies Cancer: No Psychosocial: Yes Anxiety, Depression Integumentary: Yes (NELIA INTERTRIGO) Pruritis Blood Disorders: No Adverse Reaction/Blood Tranf: No (THERESA CERON APRN) Family Medical History Alzheimer's disease 19 FATHER Cardiovascular disease 19 FATHER 19 MOTHER Completed stroke 19 MOTHER Hypertension 19 FATHER 19 MOTHER Myocardial infarction 19 FATHER 19 MOTHER No Family History of: Diabetes mellitus PSH: -T12 KYPHOPLASTY -C5-C6 CERVICAL DISCECTOMY WITH FUSION 04/2018 -LAP CORNELIUS FUNDOPLICATION -EGD'S/ESOPHAGEAL DILATIONS/COLONOSCOPIES/POLYPECTOMIES -PACEMAKER/DEFIBRILLATOR -HYSTERECTOMY/BSO -CHOLECYSTECTOMY -APPENDECTOMY -TONSILLECTOMY -OVARIAN CYST SURGERIES X 4 -CYST FROM BACK REMOVED -ENT SURGERY -BILATERAL CARPAL TUNNEL REPAIR -BILATERAL CATARACT SURGERY + YAG PROCEDURE PMH: -CHRONIC NECK PAIN WITH CERVICAL RADICULOPATHY -RESTLESS LEG SYNDROME -CHRONIC BACK PAIN -T12 COMPRESSION WITH KYPHOPLASTY -HAS HAD POST OP RESPIRATORY FAILURE IN PAST -HAD CARDIAC ARREST WITH ENT SURGERY -CAROTID DISEASE--40-50% STENOSIS BILAT ICA -PAROXYSMAL A FIB--HAS REFUSED ORAL ANTICOAGULANTS -HX OF V-FIB AND BRADYCARDIA--S/P PACEMAKER/DEFIBRILLATOR -08/23/19--CARDIAC CATH--NO SIGNIFICANT CORONARY ARTERY DISEASE, EF 50% (THERESA CERON BAR MACHINE OPERATOR MULTIPLE SPINDLE) Physical Exam Vital Signs Vital Signs - First Documented 01/26/22 11:16 Temp 36.7 Pulse 69 Resp 20 B/P (MAP) 156/94 (114) Pulse Ox 96 O2 Delivery Room Air (BRADY HOFFMAN MD) Vital Signs Capillary Refill : Less Than 3 Seconds (THERESA CERON APRN) Height, Weight, BMI Height: 5'4.00" Weight: 215lbs. 0oz. 97.736433jf; 39.00 BMI Method:Stated General Appearance: No Apparent Distress, WD/WN HEENT: PERRL/EOMI, TMs Normal, Normal ENT Inspection, Pharynx Normal Neck: Full Range of Motion, Normal Inspection, Non Tender, Supple Respiratory: Chest Non Tender, Lungs Clear, Normal Breath Sounds Cardiovascular: Regular Rate, Rhythm Neurologic/Psychiatric: Alert, Oriented x3, No Motor/Sensory Deficits, 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 Skin: Normal Color, Warm/Dry (THERESA CERON APRN) Procedures/Interventions Date of ETT Placement: Apr 21, 2018 Time of ETT Placement: 174 (THERESA CERON APRN) Progress/Results/Core Measures Results/Orders Lab Results Laboratory Tests Test 01/26/22 12:32 01/26/22 12:38 Range/Units Urine Color YELLOW Urine Clarity CLEAR Urine pH 6.5 5-9 Urine Specific [place] 1.010 L 1.016-1.022 Urine Protein NEGATIVE NEGATIVE Urine Glucose (UA) NEGATIVE NEGATIVE Urine Ketones NEGATIVE NEGATIVE Urine Nitrite NEGATIVE NEGATIVE Urine Bilirubin NEGATIVE NEGATIVE Urine Urobilinogen 0.2 < = 1.0 MG/DL Urine Leukocyte Esterase 2+ H NEGATIVE Urine RBC (Auto) NEGATIVE NEGATIVE Urine RBC NONE /HPF Urine WBC 10-25 H /HPF Urine Squamous Epithelial Cells RARE /HPF Urine Crystals NONE /LPF Urine Bacteria TRACE /HPF Urine Casts NONE /LPF Urine Mucus NEGATIVE /LPF Urine Culture Indicated YES White Blood Count 13.5 H 4.3-11.0 10^3/uL Red Blood Count 4.51 3.80-5.11 10^6/uL Hemoglobin 13.8 11.5-16.0 g/dL Hematocrit 43 35-52 % Mean Corpuscular Volume 95 80-99 fL Mean Corpuscular Hemoglobin 31 25-34 pg Mean Corpuscular Hemoglobin Concent 32 32-36 g/dL Red Cell Distribution Width 13.8 10.0-14.5 % Platelet Count 290 130-400 10^3/uL Mean Platelet Volume 9.0 9.0-12.2 fL Immature Granulocyte % (Auto) 1 % Neutrophils (%) (Auto) 77 H 42-75 % Lymphocytes (%) (Auto) 13 12-44 % Monocytes (%) (Auto) 7 0-12 % Eosinophils (%) (Auto) 1 0-10 % Basophils (%) (Auto) 1 0-10 % Neutrophils # (Auto) 10.4 H 1.8-7.8 10^3/uL Lymphocytes # (Auto) 1.7 1.0-4.0 10^3/uL Monocytes # (Auto) 1.0 0.0-1.0 10^3/uL Eosinophils # (Auto) 0.1 0.0-0.3 10^3/uL Basophils # (Auto) 0.1 0.0-0.1 10^3/uL Immature Granulocyte # (Auto) 0.2 H 0.0-0.1 10^3/uL Sodium Level 139 135-145 MMOL/L Potassium Level 3.4 L 3.6-5.0 MMOL/L Chloride Level 104 98-107 MMOL/L Carbon Dioxide Level 24 21-32 MMOL/L Anion Gap 11 5-14 MMOL/L Blood Urea Nitrogen 16 7-18 MG/DL Creatinine 0.85 0.60-1.30 MG/DL Estimat Glomerular Filtration Rate 71 BUN/Creatinine Ratio 19 Glucose Level 93 70-105 MG/DL Calcium Level 9.1 8.5-10.1 MG/DL Corrected Calcium 9.4 8.5-10.1 MG/DL Total Bilirubin 0.4 0.1-1.0 MG/DL Aspartate Amino Transf (AST/SGOT) 10 5-34 U/L Alanine Aminotransferase (ALT/SGPT) 8 0-55 U/L Alkaline Phosphatase 108 40-136 U/L Troponin I < 0.028 <0.028 NG/ML Total Protein 6.4 6.4-8.2 GM/DL Albumin 3.6 3.2-4.5 GM/DL (BRADY HOFFMAN MD) My Orders Orders - BRADY HOFFMAN MD Ekg Tracing (01/26/22 11:24) Monitor-Rhythm Ecg Trace Only (01/26/22 11:24) (BRADY HOFFMAN MD) Vital Signs/I&O 01/26/22 01/26/22 11:16 13:54 Temp 36.7 Pulse 69 66 Resp 20 16 B/P (MAP) 156/94 (114) 144/61 Pulse Ox 96 96 O2 Delivery Room Air Room Air (BRADY HOFFMAN MD) Blood Pressure Mean: 114 Progress Progress Note : Progress Note Patient is nontoxic and well-hydrated on exam. No adventitious lung sounds or increased work of breathing noted. Peripheral pulses were reviewed. EKG without acute ischemic changes or arrhythmia. Laboratory evaluation is reassuring. Chest x-ray is acutely negative. Will discharge home with recommendations for supportive care and close follow-up with PCP. Return precautions for urgent symptomology discussed. Patient verbalized understan jane. (THERESA CERON APRN) EKG : EKG Time: 11:32 Rate: 72 Rhythm: Normal Sinus Intervals: Normal ECG Impression: Nonspecific Changes (THERESA CERON APRN) Departure Impression Primary Impression: Palpitations Disposition: 01 HOME, SELF-CARE Condition: Stable Departure-Patient Inst. Decision time for Depature: 13:23 (THERESA CERON APRN) Referrals: NANNETTE REVELES DO (PCP/Family) Primary Care Physician Patient Instructions: Palpitations ATTENDING PHYSICIAN NOTE: I was physically present as attending physician in the emergency department during the care of this patient, but I was not directly involved in the decision making or delivery of care for this patient. (BRADY HOFFMAN MD) THERESA CERON APRN Jan 26, 2022 13:24 BRADY HOFFMAN MD Jan 27, 2022 20:40
[2022-01-26 13:54] VITALS: BP 144/61
[2022-01-26 18:32] LABS: BILIRUBIN,URINE NEGATIVE (NEGATIVE); CLARITY,URINE CLEAR; COLOR,URINE YELLOW; GLUCOSE, URINE (UA) NEGATIVE (NEGATIVE); KETONES,URINE NEGATIVE (NEGATIVE); LEUKOCYTE ESTERASE ,URINE 2+ (NEGATIVE); NITRITE,URINE NEGATIVE (NEGATIVE); PH,URINE 6.5 (5-9); PROTEIN,URINE NEGATIVE (NEGATIVE)
[2022-01-26 18:47] LABS: BACTERIA,URINE TRACE /HPF; SQUAMOUS EPITHELIAL CELL,UR RARE /HPF
== END 2022-01-26 13:54 | disposition home or self-care (01) ==
LOC: EDUNIT# 10:49 → ER 10:50
DX: R00.2 Palpitations (principal); E11.9 Type 2 diabetes mellitus without complications; Z95.0 Presence of cardiac pacemaker; Z79.4 Long term (current) use of insulin
CPT/HCPCS: 36415; 71045; 80053; 81000; 84484; 85025; 87077; 87088; 87186; 93005; 93041

== ENCOUNTER 2022-01-31 09:45 | Day surgery (SDC) | payer OTHER, MEDICAID ==
[2022-01-31] VITALS (8 sets, daily range): BP systolic 125–159; BP diastolic 59–88
[~2022-01-31] VITALS: Ht 162 cm; Wt 100.0 kg
[2022-01-31 09:28] LABS: HEMATOCRIT 45 % (35-52); HEMOGLOBIN 14.8 g/dL (11.5-16.0); MEAN CORPUSCULAR HEMOGLOBIN 30 pg (25-34); MEAN CORPUSCULAR HGB CONC 33 g/dL (32-36); MEAN CORPUSCULAR VOLUME 92 fL (80-99); MEAN PLATELET VOLUME 8.9 fL (9.0-12.2); PLATELET COUNT 342 10^3/uL (130-400)
[~2022-01-31 09:45] MED LIST changes: +DILT60TA30 PO; +IOHEXOL 240 MGI/ML 50 ML (OMNIPAQUE) VIAL IV ONE; +LIDOCAINE 1% INJ 30 ML (XYLOCAINE) VIAL ONE
[2022-01-31 09:51] LABS: INR 0.9 (0.8-1.4); PROTHROMBIN TIME PATIENT 12.5 SEC (12.2-14.7)
--- NOTE | 2022-01-31 18:01 | Diagnostic Imaging Report ---
Clinical indication: Patient with history of back pain. Exam: Axial CT scan of the lumbar spine myelogram post intrathecal contrast injection myelogram which was performed with sagittal and coronal reformations. The injection of intrathecal contrast was performed by another physician. Please see their notes regarding the procedure. Auto Exposure Controls were utilized during the CT exam to meet ALARA standards for radiation dose reduction. Comparison: CT scan of the thoracic and lumbar spine without contrast dated 04/15/2020. Findings: Lumbar spine has normal alignment with no acute fracture or dislocation. There are no bony destructive lytic processes seen. Stable chronic burst fracture involving the T12 vertebra with kyphoplasty changes. There is mild central canal narrowing at the T12 level. The visualized portions of the distal spinal cord, conus medullaris, and cauda equina have normal anatomic appearance. The conus medullaris tip is seen at the upper L2 vertebral body level. Paraspinal soft tissues unremarkable. T12-L1: There is a mild diffuse disk bulge with mild central canal narrowing. There is no significant left neural foramen narrowing and moderate right bony neural foramen narrowing. L1-L2: There is mild diffuse disk bulge. There is moderate left facet arthropathy/hypertrophy. There is no significant central canal stenosis. There is no significant bony neural foramen narrowing. L2-L3: There is moderate left facet arthropathy and mild right facet arthropathy. There is no significant central canal stenosis. There is no significant neural foramen narrowing. L3-L4: There is stable subtle grade 1 anterolisthesis of L3 on L4. There is a mild diffuse disk bulge. There is moderate bilateral facet arthropathy/hypertrophy and ligamentum flavum buckling. There is mild central canal stenosis. There is mild to moderate left neural foramen narrowing and mild right neural foramen narrowing. L4-L5: There is slight progression of subtle grade 1 anterolisthesis of L4 on L5. There is diffuse disk bulge with severe bilateral facet arthropathy. Mild central canal stenosis. There is no significant right neural foramen narrowing and mild to moderate left neural foramen narrowing. L5-S1: There is mild bilateral facet arthropathy. There is no significant central canal stenosis. There is mild left neural foramen narrowing and no significant right neural foramen narrowing. Impression: 1: There is no acute lumbar spine fracture. 2: There is stable T12 burst fracture with kyphoplasty changes. 3: There is multilevel lumbar spine degenerative disease, as described above. Dictated by: Dictated on workstation # [id number]
--- NOTE | 2022-01-31 19:41 | Diagnostic Imaging Report ---
EXAM: Lumbar myelogram at 11:09 AM INDICATION: Back pain Following aseptic preparation of the skin and administration of local anesthesia, a lumbar puncture was made at the L2-L3 level. Subsequently, 12 mL of Omnipaque 240 was infused. There does seem to be mild central stenosis at L3-4 and L4-5. There is no high grade stenosis identified. IMPRESSION: There is mild central stenosis at L3-4 and L4-5. CT is pending for further evaluation.. Dictated by: Dictated on workstation # [id number]
== END 2022-01-31 15:10 | disposition home or self-care (01) ==
LOC: RAD 09:45
DX: M48.061 Spinal stenosis, lumbar region without neurogenic claudication (principal); M47.816 Spondylosis without myelopathy or radiculopathy, lumbar region
CPT/HCPCS: 36415; 62284; 72132; 72265; 77002; 85027; 85610; 85730

== ENCOUNTER 2022-03-04 23:44 | Emergency (ER) | payer OTHER, MEDICAID ==
[~2022-03-04] VITALS: Ht 162.6 cm; Wt 95.3 kg
[~2022-03-04 23:44] MED LIST changes: -IOHEXOL 240 MGI/ML 50 ML (OMNIPAQUE) VIAL IV ONE; -LIDOCAINE 1% INJ 30 ML (XYLOCAINE) VIAL ONE
--- NOTE | 2022-03-04 23:59 | ED General ---
General Chief Complaint: Glucose Problems Stated Complaint: BLOOD SUGAR 353,FORGOT TO TAKE NEW MED THIS MORN Source of Information: Patient History of Present Illness Date Seen by Provider: Mar 04, 2022 Time Seen by Provider: 23:57 Allergies and Home Medications Allergies Coded Allergies: Penicillins (Verified Allergy, Severe, Pt has received Cefepime & Ceftriaxone in the past w/o issue, 01/31/22) SWELLING, RASH, ITCHING vancomycin (Verified Allergy, Severe, Nausea, 01/31/22) COUGH, THROAT FEELING TIGHT Sulfa (Sulfonamide Antibiotics) (Verified Allergy, Mild, 01/31/22) RASH aspirin (Verified Adverse Reaction, Mild, ASPIRIN SENSITIVE, 01/31/22) UPSET STOMACH sumatriptan (Verified Adverse Reaction, Mild, PALPITATIONS, 01/31/22) IRRITABLE Patient Home Medication List Acetaminophen (Acetaminophen) 500 Mg Tablet, 1,000 MG PO Q6H PRN for PAIN-MILD (1-4) OR TEMPATURE Prescribed by: NANNETTE REVELES on 02/05/20 0946 Acetaminophen with Codeine (Acetaminop-Codeine 120-12 mg/5) 5 Ml Solution, 5 ML PO Q6H PRN for cough Prescribed by: JEYSON AUGUSTE on 05/21/21 1350 Apixaban (Eliquis) 5 Mg Tablet, 5 MG PO BID, (Reported) Entered as Reported by: LORIN ZHENG on 01/29/20 1213 Baclofen (Baclofen) 10 Mg Tablet, 20 MG PO BID, (Reported) Entered as Reported by: LORIN ZHENG on 01/29/20 1213 Cefdinir (Cefdinir) 300 Mg Capsule, 300 MG PO BID Prescribed by: JEYSON AUGUSTE on 05/21/21 1349 Cephalexin (Cephalexin) 500 Mg Capsule, 500 MG PO TID, (Reported) Entered as Reported by: TAWANDA DRAKE on 06/21/20 1244 Cholecalciferol (Vitamin D3) (Vitamin D3) 25 Mcg Capsule, 25 MCG PO DAILY, (Reported) Entered as Reported by: LORIN ZHENG on 01/29/20 1213 Clindamycin HCl (Clindamycin HCl) 300 Mg Capsule, 300 MG PO TID Prescribed by: EARNESTINE CAMARGO on 01/28/21 1044 Diltiazem HCl (Cardizem) Unknown Strength Tablet, Unknown Dose PO BID, (Reported) Entered as Reported by: ALFREDA FIGUEROA on 01/31/22 0931 Furosemide (Furosemide) 20 Mg Tablet, 20 MG PO DAILY, (Reported) Entered as Reported by: TAWANDA DRAKE on 06/21/20 1244 Hydrocodone/Acetaminophen (Hydrocodone-Acetamin 5-325 mg) 1 Each Tablet, 1 TAB PO Q4H PRN for PAIN-MODERATE (5-7) Prescribed by: EARNESTINE CAMARGO on 01/28/21 1045 Insulin NPH Human Isophane (Humulin N) 100 Unit/1 Ml Vial, 30 UNIT SQ BID Prescribed by: TAWANDA DRAKE on 06/21/20 1244 Melatonin (Melatonin) 10 Mg Tablet, 10 MG PO, (Reported) Entered as Reported by: LORIN ZHENG on 01/29/20 1213 Metoprolol Tartrate (Metoprolol Tartrate) 50 Mg Tablet, 50 MG PO BID, (Reported) Entered as Reported by: LORIN ZHENG on 01/29/20 1213 Nitrofurantoin Macrocrystal (Nitrofurantoin) 100 Mg Capsule, 100 MG PO BID Prescribed by: PARMJIT VARGAS on 12/14/20 1047 Nystatin (Nystatin) 15 Gm Cream..g., 0 GM TP TID Prescribed by: NANNETTE REVELES on 02/05/20 0946 Omeprazole (Omeprazole) 40 Mg Capsule.dr, 40 MG PO BID, (Reported) Entered as Reported by: KEI YOUSIF on 03/03/17 1453 Potassium Chloride (Potassium Chloride) 10 Meq Tab.er.prt, 10 MEQ PO DAILY, (R eported) Entered as Reported by: TAWANDA DRAKE on 06/21/20 1244 Pramipexole Di-HCl (Pramipexole Dihydrochloride) 1 Mg Tablet, 1 MG PO 1600, (Reported) Entered as Reported by: MINA MORSE on 06/10/17 1445 Vitamin E Acetate (Vitamin E) 400 Unit Capsule, 400 UNIT PO DAILY, (Reported) Entered as Reported by: TAWANDA DRAKE on 06/21/20 1244 Past Txuyptg-Uqneno-Raucsv Hx Immunizations Up To Date Tetanus Booster (TDap): Unknown PED Vaccines UTD: No First/Initial COVID19 Vaccinat: NONE Second COVID19 Vaccination Mike: NONE Third COVID19 Vaccination Date: NONE Seasonal Allergies Seasonal Allergies: Yes Past Medical History Surgery/Hospitalization HX: PMH: FIBRO, NEUROPATHY, COPD, HEART PROBLEMS, DEFIB/PACEMAKER, DM Surgeries: Yes (LAP CORNELIUS; C-SPINE FUSION/DISCECTOMY C5-C6 ) Abdominal, Appendectomy, Cardiac, Defibrillator, Eye Surgery, Gallbladder, Hysterectomy, Oophorectomy, Orthopedic, Pacemaker, Tonsillectomy Respiratory: Yes (O2 AT 2L/NC CONTINUOUSLY) Asthma, Pneumonia, Chronic Bronchitis, Sleep Apnea, COPD Currently Using CPAP: No Currently Using BIPAP: No Cardiac: Yes (PACEMAKER/DEFIBRILLATOR;CARDIAC ARREST DURING ENT SURGERY;PSVT/PALPITATIONS) Atrial Fibrillation, Chronic Edema/Swelling, Coronary Artery Disease, High Cholesterol, Hypertension, Irregular Heartbeat Neurological: Yes (PERIPHERAL NEUROPATHY HANDS/FEET; CHRONIC HEADACHES) Headaches /Migraines, Neuropathy, TIA 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 Disorders: No Female 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 Disorders: Denies 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 PAIN) Degenerate Disk Disease, Arthritis, Fibromyalgia, Chronic Back Pain, Fractures Endocrine: Yes Diabetes, Insulin dep, Diabetes, Non-Insulin dep HEENT: Yes (S/P BILATERAL CATARACT SURGERY + YAG PROCEDURE;ENT SURG WITH CARDIAC ARREST) Cataract Loss of Vision: Denies Hearing Impairment: Denies Cancer: No Psychosocial: Yes Anxiety, Depression Integumentary: Yes (NELIA INTERTRIGO) Pruritis Blood Disorders: No Adverse Reaction/Blood Tranf: No Family Medical History Alzheimer's disease 19 FATHER Cardiovascular disease 19 FATHER 19 MOTHER Completed stroke 19 MOTHER Hypertension 19 FATHER 19 MOTHER Myocardial infarction 19 FATHER 19 MOTHER No Family History of: Diabetes mellitus PSH: -T12 KYPHOPLASTY -C5-C6 CERVICAL DISCECTOMY WITH FUSION 04/2018 -LAP CORNELIUS FUNDOPLICATION -EGD'S/ESOPHAGEAL DILATIONS/COLONOSCOPIES/POLYPECTOMIES -PACEMAKER/DEFIBRILLATOR -HYSTERECTOMY/BSO -CHOLECYSTECTOMY -APPENDECTOMY -TONSILLECTOMY -OVARIAN CYST SURGERIES X 4 -CYST FROM BACK REMOVED -ENT SURGERY -BILATERAL CARPAL TUNNEL REPAIR -BILATERAL CATARACT SURGERY + YAG PROCEDURE PMH: -CHRONIC NECK PAIN WITH CERVICAL RADICULOPATHY -RESTLESS LEG SYNDROME -CHRONIC BACK PAIN -T12 COMPRESSION WITH KYPHOPLASTY -HAS HAD POST OP RESPIRATORY FAILURE IN PAST -HAD CARDIAC ARREST WITH ENT SURGERY -CAROTID DISEASE--40-50% STENOSIS BILAT ICA -PAROXYSMAL A FIB--HAS REFUSED ORAL ANTICOAGULANTS -HX OF V-FIB AND BRADYCARDIA--S/P PACEMAKER/DEFIBRILLATOR -08/23/19--CARDIAC CATH--NO SIGNIFICANT CORONARY ARTERY DISEASE, EF 50% Physical Exam Vital Signs Vital Signs - First Documented 03/04/22 23:57 Temp 36.2 Pulse 68 Resp 16 B/P (MAP) 178/94 (122) Pulse Ox 95 O2 Delivery Room Air Capillary Refill : Height, Weight, BMI Height: 5'4.00" Weight: 215lbs. 0oz. 97.373508lp; 39.00 BMI Method:Stated Procedures/Interventions Date of ETT Placement: Apr 21, 2018 Time of ETT Placement: 1743 Progress/Results/Core Measures Suspected Sepsis SIRS Temperature: Pulse: Respiratory Rate: Laboratory Tests 03/04/22 00:07: White Blood Count 11.9H Blood Pressure / Mean: Laboratory Tests 03/04/22 00:07: Creatinine 0.85, Platelet Count 360, Total Bilirubin 0.4 Results/Orders Lab Results Laboratory Tests Test 03/04/22 00:07 03/04/22 00:19 03/05/22 00:11 03/05/22 00:18 Range/Units White Blood Count 11.9 H 4.3-11.0 10^3/uL Red Blood Count 4.62 3.80-5.11 10^6/uL Hemoglobin 14.2 11.5-16.0 g/dL Hematocrit 43 35-52 % Mean Corpuscular Volume 93 80-99 fL Mean Corpuscular Hemoglobin 31 25-34 pg Mean Corpuscular Hemoglobin Concent 33 32-36 g/dL Red Cell Distribution Width 13.1 10.0-14.5 % Platelet Count 360 130-400 10^3/uL Mean Platelet Volume 9.4 9.0-12.2 fL Immature Granulocyte % (Auto) 2 % Neutrophils (%) (Auto) 77 H 42-75 % Lymphocytes (%) (Auto) 13 12-44 % Monocytes (%) (Auto) 6 0-12 % Eosinophils (%) (Auto) 1 0-10 % Basophils (%) (Auto) 1 0-10 % Neutrophils # (Auto) 9.1 H 1.8-7.8 10^3/uL Lymphocytes # (Auto) 1.6 1.0-4.0 10^3/uL Monocytes # (Auto) 0.7 0.0-1.0 10^3/uL Eosinophils # (Auto) 0.2 0.0-0.3 10^3/uL Basophils # (Auto) 0.1 0.0-0.1 10^3/uL Immature Granulocyte # (Auto) 0.3 H 0.0-0.1 10^3/uL Sodium Level 136 135-145 MMOL/L Potassium Level 4.0 3.6-5.0 MMOL/L Chloride Level 100 98-107 MMOL/L Carbon Dioxide Level 24 21-32 MMOL/L Anion Gap 12 5-14 MMOL/L Blood Urea Nitrogen 13 7-18 MG/DL Creatinine 0.85 0.60-1.30 MG/DL Estimat Glomerular Filtration Rate 71 BUN/Creatinine Ratio 15 Glucose Level 301 H 70-105 MG/DL Calcium Level 9.6 8.5-10.1 MG/DL Corrected Calcium 9.8 8.5-10.1 MG/DL Magnesium Level 1.7 1.6-2.4 MG/DL Total Bilirubin 0.4 0.1-1.0 MG/DL Aspartate Amino Transf (AST/SGOT) 10 5-34 U/L Alanine Aminotransferase (ALT/SGPT) 13 0-55 U/L Alkaline Phosphatase 122 40-136 U/L Total Protein 6.9 6.4-8.2 GM/DL Albumin 3.8 3.2-4.5 GM/DL Urine Color YELLOW Urine Clarity CLEAR Urine pH 6.0 5-9 Urine Specific Bonnyman 1.020 1.016-1.022 Urine Protein NEGATIVE NEGATIVE Urine Glucose (UA) NEGATIVE NEGATIVE Urine Ketones NEGATIVE NEGATIVE Urine Nitrite NEGATIVE NEGATIVE Urine Bilirubin NEGATIVE NEGATIVE Urine Urobilinogen 0.2 < = 1.0 MG/DL Urine Leukocyte Esterase 1+ H NEGATIVE Urine RBC (Auto) NEGATIVE NEGATIVE Urine RBC NONE /HPF Urine WBC 5-10 H /HPF Urine Squamous Epithelial Cells 25-50 H /HPF Urine Crystals NONE /LPF Urine Bacteria MODERATE H /HPF Urine Casts NONE /LPF Urine Mucus SMALL H /LPF Urine Culture Indicated YES Glucometer 274 H 70-110 MG/DL Influenza Type A (RT-PCR) Not Detected Not Detecte Influenza Type B (RT-PCR) Not Detected Not Detecte SARS-CoV-2 RNA (RT-PCR) Not Detected Not Detecte My Orders Orders - PETER ASHLEY DO Ed Iv/Invasive Line Start (03/04/22 23:56) Cbc With Automated Diff (03/04/22 23:56) Comprehensive Metabolic Panel (03/04/22 23:56) Magnesium (03/04/22 23:56) Ua Culture If Indicated (03/04/22 23:56) Ed Iv/Invasive Line Start (03/04/22 23:56) Ns Iv 1000 Ml (Sodium Chloride 0.9%) (03/05/22 00:00) Accucheck Stat ONCE (03/04/22 23:56) Covid 19 Inhouse Test (03/05/22 00:10) Influenza A And B By Pcr (03/05/22 00:10) Isolation Central Supply Req (03/05/22 00:10) Urine Culture (03/04/22 00:19) Vital Signs/I&O 03/04/22 23:57 Temp 36.2 Pulse 68 Resp 16 B/P (MAP) 178/94 (122) Pulse Ox 95 O2 Delivery Room Air Capillary Refill : Departure Impression Primary Impression: Hyperglycemia due to diabetes mellitus Additional Impressions: HTN (hypertension) Diabetes mellitus, insulin dependent (IDDM), uncontrolled UTI (urinary tract infection) Disposition: 01 HOME, SELF-CARE Condition: Stable Departure-Patient Inst. Decision time for Depature: 00:55 Referrals: NANNETTE REVELES DO (PCP/Family) Primary Care Physician Patient Instructions: Carb Counting for Adults With Diabetes, DIABETES, Urinary Tract Infection, Adult (DC) Add. Discharge Instructions: HOME, REST TAKE ALL OF YOUR MEDICATIONS PRESCRIBED FOLLOW UP WITH DR. REVELES THIS WEEK SCHEDULED All discharge instructions reviewed with patient and/or family. Voiced understanding. Scripts Nitrofurantoin Monohyd/M-Cryst (Macrobid 100 mg Capsule) 100 Mg Capsule 1 TAB PO BID, #20 CAP Prov: PETER ASHLEY DO 03/05/22 PETER ASHLEY DO Mar 04, 2022 23:59
[2022-03-05] MEDS ORDERED: NS IV 1000 ML 1,000 ML IV SCH
[2022-03-05 00:15] LABS: BASOPHILS # (AUTO) 0.1 10^3/uL (0.0-0.1); BASOPHILS % (AUTO) 1 % (0-10); EOSINOPHILS # (AUTO) 0.2 10^3/uL (0.0-0.3); EOSINOPHILS % (AUTO) 1 % (0-10); HEMATOCRIT 43 % (35-52); HEMOGLOBIN 14.2 g/dL (11.5-16.0); LYMPHOCYTES # (AUTO) 1.6 10^3/uL (1.0-4.0); LYMPHOCYTES % (AUTO) 13 % (12-44); MEAN CORPUSCULAR HEMOGLOBIN 31 pg (25-34); MEAN CORPUSCULAR HGB CONC 33 g/dL (32-36); MEAN CORPUSCULAR VOLUME 93 fL (80-99); MEAN PLATELET VOLUME 9.4 fL (9.0-12.2); MONOCYTES # (AUTO) 0.7 10^3/uL (0.0-1.0); MONOCYTES % (AUTO) 6 % (0-12); NEUTROPHILS # (AUTO) 9.1 10^3/uL (1.8-7.8); NEUTROPHILS % (AUTO) 77 % (42-75); PLATELET COUNT 360 10^3/uL (130-400); WHITE BLOOD COUNT 11.9 10^3/uL (4.3-11.0)
[2022-03-05 00:25] LABS: BILIRUBIN,URINE NEGATIVE (NEGATIVE); CLARITY,URINE CLEAR; COLOR,URINE YELLOW; GLUCOSE, URINE (UA) NEGATIVE (NEGATIVE); KETONES,URINE NEGATIVE (NEGATIVE); LEUKOCYTE ESTERASE ,URINE 1+ (NEGATIVE); NITRITE,URINE NEGATIVE (NEGATIVE); PROTEIN,URINE NEGATIVE (NEGATIVE)
[2022-03-05 00:35] LABS: ALBUMIN 3.8 GM/DL (3.2-4.5); BILIRUBIN,TOTAL 0.4 MG/DL (0.1-1.0); CALCIUM 9.6 MG/DL (8.5-10.1); CREATININE SERUM 0.85 MG/DL (0.60-1.30); MAGNESIUM 1.7 MG/DL (1.6-2.4); TOTAL PROTEIN 6.9 GM/DL (6.4-8.2)
[2022-03-05 00:37] LABS: BACTERIA,URINE MODERATE /HPF; SQUAMOUS EPITHELIAL CELL,UR 25-50 /HPF
[2022-03-05] MEDS ORDERED: NITR-65 PO (00:57)
[2022-03-05] MEDS ORDERED: RX-NITROFURANTOIN 100 MG (MACROBID) CAP PPK#2 PO STA (00:57)
[2022-03-05 01:55] VITALS: BP 160/88
== END 2022-03-05 01:55 | disposition home or self-care (01) ==
LOC: EDUNIT# 23:44 → ER 23:47
DX: E11.65 Type 2 diabetes mellitus with hyperglycemia (principal); I10 Essential (primary) hypertension; N39.0 Urinary tract infection, site not specified; Z79.4 Long term (current) use of insulin; Z87.442 Personal history of urinary calculi; Z28.310 Unvaccinated for COVID-19; Z20.822 Contact with and (suspected) exposure to COVID-19; Z88.0 Allergy status to penicillin; Z88.2 Allergy status to sulfonamides; Z88.1 Allergy status to other antibiotic agents
CPT/HCPCS: 36415; 80053; 81000; 82947; 83735; 85025; 87088; 87636

== ENCOUNTER 2022-04-26 08:14 | Outpatient (RCR) | payer OTHER, MEDICAID | END 2022-05-01 | disposition home or self-care (01) | PROVIDERS: ATTEND Registered Nurse | DX: M54.6 Pain in thoracic spine (principal); M54.50 Low back pain, unspecified; R53.1 Weakness; G89.29 Other chronic pain ==

== ENCOUNTER → 2022-05-11 | Outpatient (CLI) | payer OTHER, MEDICAID ==
[2022-05-11 10:57] LABS: ALBUMIN 3.6 GM/DL (3.2-4.5); POTASSIUM 3.8 MMOL/L (3.6-5.0)
[2022-05-11 10:59] LABS: TOTAL PROTEIN 6.4 GM/DL (6.4-8.2)
[2022-05-11 11:01] LABS: BILIRUBIN,TOTAL 0.2 MG/DL (0.1-1.0)
[2022-05-11 11:03] LABS: CREATININE SERUM 0.88 MG/DL (0.60-1.30)
== END ==
LOC: LAB 10:26
PROVIDERS: ATTEND Family Medicine
DX: E11.65 Type 2 diabetes mellitus with hyperglycemia (principal)
CPT/HCPCS: 36415; 80053; 83036

== ENCOUNTER → 2022-05-22 | Outpatient (CLI) | payer MEDICARE, MEDICAID ==
--- NOTE | 2022-05-22 09:19 | Diagnostic Imaging Report ---
PROCEDURE: CT thoracic spine without contrast. TECHNIQUE: Multiple axial computerized tomography images were obtained from the base of the thoracic spine to the vertex without intravenous contrast. Auto Exposure Controls were utilized during the CT exam to meet ALARA standards for radiation dose reduction. INDICATION: Chronic midline thoracic back pain. COMPARISON: CT lumbar spine myelogram 01/31/2022. FINDINGS: Burst fracture of the T12 vertebral body with mild retropulsion appears stable with approximately 80% height loss. This has been treated with vertebroplasty. Vertebral body heights are otherwise preserved. No fractures. Normal alignment. Mild scattered degenerative endplate changes. No CT evidence of spinal canal stenosis or neural foraminal narrowing. Visualized lung evangelista are clear. Cardiac pacer. Small esophageal hiatal hernia. IMPRESSION: 1. Stable burst fracture of T12 with mild retropulsion and approximately 80% height loss which has been treated with vertebroplasty. 2. No other thoracic spine fracture. 3. Mild spondylotic changes without CT evidence of neural impingement Dictated by: Dictated on workstation # [id number]
== END ==
LOC: RAD 09:15
PROVIDERS: ATTEND Registered Nurse
DX: M47.814 Spondylosis without myelopathy or radiculopathy, thoracic region (principal); M51.34 Other intervertebral disc degeneration, thoracic region
CPT/HCPCS: 72128

== ENCOUNTER → 2022-06-01 | Outpatient (RCR) | payer OTHER, MEDICAID | END | disposition home or self-care (01) | PROVIDERS: ATTEND Registered Nurse | DX: M54.6 Pain in thoracic spine (principal); M54.50 Low back pain, unspecified; G89.29 Other chronic pain; E11.9 Type 2 diabetes mellitus without complications; J44.9 Chronic obstructive pulmonary disease, unspecified ==

== ENCOUNTER → 2022-08-14 | Outpatient (CLI) | payer MEDICARE, MEDICAID | LOC: CARD 08:42 | PROVIDERS: ATTEND Nurse Practitioner Family | DX: I27.21 Secondary pulmonary arterial hypertension (principal); I34.0 Nonrheumatic mitral (valve) insufficiency | CPT/HCPCS: 93306 ==

== ENCOUNTER → 2022-09-11 | Outpatient (CLI) | payer MEDICARE, MEDICAID ==
--- NOTE | 2022-09-11 10:21 | Diagnostic Imaging Report ---
CLINICAL INDICATION: Patient with recurrent falls. EXAM: Axial Head CT without IV contrast with sagittal and coronal reformations. Axial CT scan of the cervical spine with sagittal and coronal reformations. Auto Exposure Controls were utilized during the CT exam to meet ALARA standards for radiation dose reduction. COMPARISON: Head CT without contrast dated 05/13/2020. CT scan of the head and cervical spine without contrast dated 04/24/2020. FINDINGS: HEAD CT: There is no evidence of acute cerebral infarct, intracranial hemorrhage, or gross mass effect. There is diffuse brain parenchymal volume loss significantly involving the bilateral frontal lobes. There is also prominence of the subarachnoid spaces anteriorly, suspected to be related to brain parenchymal volume loss which was also noted on the prior head CT. There are stable small chronic ischemic changes involving the right cerebellar hemisphere. There is normal joseph-white matter distinction. There is no significant midline shift or herniation. There is no evidence of hydrocephalus. The basal cisterns are unremarkable. The skull, extracranial soft tissue, and orbits are unremarkable. There is minimal mucosal thickening involving the sphenoid sinus. Temporal bones show no significant abnormality. CERVICAL SPINE: There is no acute cervical spine fracture or dislocation. There is straightening of the cervical spine posture. Again seen is C5-C6 anterior cervical discectomy and fusion with solid bony bridging/fusion. There are hypertrophic anterior spurs at the C4-C5 level which have slightly progressed. There is no significant neck soft tissue abnormality. The visualized upper lung evangelista are clear. IMPRESSION: 1: Stable CT scan of the brain with no interval evidence of an acute intracranial process. 2: There is no acute cervical spine fracture or dislocation. Dictated by: Dictated on workstation # [id number]
== END ==
LOC: RAD 08:48
PROVIDERS: ATTEND Psychiatry & Neurology Neurology
DX: R29.6 Repeated falls (principal)
CPT/HCPCS: 70450; 72125

== ENCOUNTER 2022-09-26 09:03 | Outpatient (RCR) | payer MEDICARE, MEDICAID | END 2022-10-01 | disposition home or self-care (01) | PROVIDERS: ATTEND Psychiatry & Neurology Neurology | DX: R29.6 Repeated falls (principal) ==

== ENCOUNTER → 2022-10-09 | Outpatient (CLI) | payer MEDICARE, MEDICAID ==
[~2022-10-09] MED LIST changes: +REGADENOSON 0.4 MG/5 ML SYR (LEXISCAN) IV ONE
[2022-10-09] MEDS: CATHETER FLUSH 10 ML SYR IVP PRN ×2 (11:51→12:33)
[2022-10-09 13:23] VITALS: BP 187/70
--- NOTE | 2022-10-09 21:56 | STRESS TEST ---
DATE OF SERVICE: 10/09/2022 RESTING AND POST REGADENOSON TECHNETIUM-99M TETROFOSMIN SPECT CT IMAGING ORDERING PHYSICIAN: Franchesca Cr APRN. PRIMARY PHYSICIAN: Dr. Reid. CLINICAL DIAGNOSIS: Chest discomfort. Baseline images were carried out after injection of 10.72 mCi of technetium-99m tetrofosmin. This was followed by 0.4 mg regadenoson and 32.8 mCi of technetium-99m tetrofosmin for stress imaging. The electrocardiogram showed sinus rhythm at baseline. It did not change significantly with the regadenoson infusion. The patient tolerated the procedure well. Review of images at rest and following stress does not indicate any distinct perfusion defects consistent with significant myocardial ischemia or infarction. Gated images show normal global left ventricular systolic function with normal regional wall motion. Left ventricular ejection fraction is calculated to be 79%. Left ventricular end-diastolic volume is 37 mL. TID is absent (0.97). CONCLUSIONS: 1. No evidence of any significant myocardial ischemia or infarction on this study. 2. Normal regional wall motion. 3. Normal global left ventricular systolic function with a calculated ejection fraction of 79%. Job ID: [id number] DocumentID: [id number] Dictated Date: 10/09/2022 19:19:55 Medical Intern Date: 10/09/2022 21:55:00 Dictated By: ULI YOO MD; ARCELIA; FACP; FACC;
== END ==
LOC: CARD 10:15
PROVIDERS: ATTEND Nurse Practitioner Family
DX: R07.9 Chest pain, unspecified (principal)
CPT/HCPCS: 78452; 93017

== ENCOUNTER → 2022-10-09 | Outpatient (CLI) | payer MEDICARE, MEDICAID ==
[~2022-10-09] MED LIST changes: -REGADENOSON 0.4 MG/5 ML SYR (LEXISCAN) IV ONE
[2022-10-09 10:43] LABS: BASOPHILS # (AUTO) 0.1 10^3/uL (0.0-0.1); BASOPHILS % (AUTO) 1 % (0-10); EOSINOPHILS # (AUTO) 0.2 10^3/uL (0.0-0.3); EOSINOPHILS % (AUTO) 2 % (0-10); HEMATOCRIT 41 % (35-52); HEMOGLOBIN 13.2 g/dL (11.5-16.0); LYMPHOCYTES # (AUTO) 1.9 10^3/uL (1.0-4.0); LYMPHOCYTES % (AUTO) 21 % (12-44); MEAN CORPUSCULAR HEMOGLOBIN 30 pg (25-34); MEAN CORPUSCULAR HGB CONC 33 g/dL (32-36); MEAN CORPUSCULAR VOLUME 91 fL (80-99); MEAN PLATELET VOLUME 9.6 fL (9.0-12.2); MONOCYTES # (AUTO) 0.5 10^3/uL (0.0-1.0); MONOCYTES % (AUTO) 6 % (0-12); NEUTROPHILS # (AUTO) 6.4 10^3/uL (1.8-7.8); NEUTROPHILS % (AUTO) 70 % (42-75); PLATELET COUNT 317 10^3/uL (130-400); WHITE BLOOD COUNT 9.1 10^3/uL (4.3-11.0)
[2022-10-09 11:06] LABS: ALBUMIN 3.9 GM/DL (3.2-4.5); BILIRUBIN,TOTAL 0.3 MG/DL (0.1-1.0); CALCIUM 9.2 MG/DL (8.5-10.1); CREATININE SERUM 0.81 MG/DL (0.60-1.30); MAGNESIUM 1.6 MG/DL (1.6-2.4); POTASSIUM 3.6 MMOL/L (3.6-5.0); TOTAL PROTEIN 6.7 GM/DL (6.4-8.2)
== END ==
LOC: LAB 10:16
PROVIDERS: ATTEND Family Medicine
DX: E11.65 Type 2 diabetes mellitus with hyperglycemia (principal); Z79.4 Long term (current) use of insulin; E55.9 Vitamin D deficiency, unspecified; R53.83 Other fatigue
CPT/HCPCS: 36415; 80053; 82306; 82607; 83036; 83735; 84443; 85025

== ENCOUNTER 2022-10-19 09:01 | Emergency (ER) | payer MEDICARE, MEDICAID ==
[~2022-10-19] VITALS: Ht 160 cm; Wt 91.0 kg
--- NOTE | 2022-10-19 09:17 | ED Headache ---
General Chief Complaint: Head/Cervical Problems Stated Complaint: HEADACHE | WEAKNESS | History of Present Illness Date Seen by Provider: Oct 19, 2022 Time Seen by Provider: 09:17 Initial Comments 77-year-old female presents with right-sided headache. Patient reports that she has been having on and off for quite some time. She does have a history of migraines but they are normally on the left side. She has been seeing a neurologist for headaches and other neurologic issues. She has had a head CT within the last month but has not visit with a neurologist since the head CT. She reports that throughout the day and by the end of the day she feels like her neck gets weak in her head, leans to the right but this is not new and has been going on for a while. Her headaches are also not new but she has had 1 for about 4 days. Patient reports she has had labs within the last week. She called her neurologist today and her to the ER to be treated for her headache and just to be evaluated. Patient denies any fevers, chills, recent illnesses or other symptoms. Allergies and Home Medications Allergies Coded Allergies: Penicillins (Verified Allergy, Severe, Pt has received Cefepime & Ceftriaxone in the past w/o issue, 01/31/22) SWELLING, RASH, ITCHING vancomycin (Verified Allergy, Severe, Nausea, 01/31/22) COUGH, THROAT FEELING TIGHT Sulfa (Sulfonamide Antibiotics) (Verified Allergy, Mild, 01/31/22) RASH aspirin (Verified Adverse Reaction, Mild, ASPIRIN SENSITIVE, 01/31/22) UPSET STOMACH sumatriptan (Verified Adverse Reaction, Mild, PALPITATIONS, 01/31/22) IRRITABLE Patient Home Medication List Home Medication List Reviewed: Yes Acetaminophen (Acetaminophen) 500 Mg Tablet, 1,000 MG PO Q6H PRN for PAIN-MILD (1-4) OR TEMPATURE Prescribed by: NANNETTE REVELES on 02/05/20 0946 Acetaminophen with Codeine (Acetaminop-Codeine 120-12 mg/5) 5 Ml Solution, 5 ML PO Q6H PRN for cough Prescribed by: JEYSON AUGUSTE on 05/21/21 1350 Apixaban (Eliquis) 5 Mg Tablet, 5 MG PO BID, (Reported) Entered as Reported by: LORIN ZHENG on 01/29/20 1213 Baclofen (Baclofen) 10 Mg Tablet, 20 MG PO BID, (Reported) Entered as Reported by: LORIN ZHENG on 01/29/20 1213 Cefdinir (Cefdinir) 300 Mg Capsule, 300 MG PO BID Prescribed by: JEYSON AUGUSTE on 05/21/21 1349 Cephalexin (Cephalexin) 500 Mg Capsule, 500 MG PO TID, (Reported) Entered as Reported by: TAWANDA DRAKE on 06/21/20 1244 Cholecalciferol (Vitamin D3) (Vitamin D3) 25 Mcg Capsule, 25 MCG PO DAILY, (Reported) Entered as Reported by: LORIN ZHENG on 01/29/20 1213 Clindamycin HCl (Clindamycin HCl) 300 Mg Capsule, 300 MG PO TID Prescribed by: EARNESTINE CAMARGO on 01/28/21 1044 Diltiazem HCl (Cardizem) Unknown Strength Tablet, Unknown Dose PO BID, (Reported) Entered as Reported by: ALFREDA FIGUEROA on 01/31/22 0931 Furosemide (Furosemide) 20 Mg Tablet, 20 MG PO DAILY, (Reported) Entered as Reported by: TAWANDA DRAKE on 06/21/20 1244 Hydrocodone/Acetaminophen (Hydrocodone-Acetamin 5-325 mg) 1 Each Tablet, 1 TAB PO Q4H PRN for PAIN-MODERATE (5-7) Prescribed by: EARNESTINE CAMARGO on 01/28/21 1045 Insulin NPH Human Isophane (Humulin N) 100 Unit/1 Ml Vial, 30 UNIT SQ BID Prescribed by: TAWANDA DRAKE on 06/21/20 1244 Melatonin (Melatonin) 10 Mg Tablet, 10 MG PO, (Reported) Entered as Reported by: LORIN ZHENG on 01/29/20 1213 Metoprolol Tartrate (Metoprolol Tartrate) 50 Mg Tablet, 50 MG PO BID, (Reported) Entered as Reported by: LORIN ZHENG on 01/29/20 1213 Nitrofurantoin Macrocrystal (Nitrofurantoin) 100 Mg Capsule, 100 MG PO BID Prescribed by: PARMJIT VARGAS on 12/14/20 1047 Nitrofurantoin Monohyd/M-Cryst (Macrobid 100 mg Capsule) 100 Mg Capsule, 1 TAB PO BID Prescribed by: PETER ASHLEY on 03/05/22 0057 Nystatin (Nystatin) 15 Gm Cream..g., 0 GM TP TID Prescribed by: NANNETTE REVELES on 02/05/20 0946 Omeprazole (Omeprazole) 40 Mg Capsule.dr, 40 MG PO BID, (Reported) Entered as Reported by: KEI YOUSIF on 03/03/17 1453 Potassium Chloride (Potassium Chloride) 10 Meq Tab.er.prt, 10 MEQ PO DAILY, (Reported) Entered as Reported by: TAWANDA DRAKE on 06/21/20 1244 Pramipexole Di-HCl (Pramipexole Dihydrochloride) 1 Mg Tablet, 1 MG PO 1600, (Reported) Entered as Reported by: MINA MORSE on 06/10/17 1445 Vitamin E Acetate (Vitamin E) 400 Unit Capsule, 400 UNIT PO DAILY, (Reported) Entered as Reported by: TAWANDA DRAKE on 06/21/20 1244 Review of Systems Review of Systems Constitutional: see HPI Eyes: No Symptoms Reported Respiratory: no symptoms reported Cardiovascular: no symptoms reported Gastrointestinal: no symptoms reported Musculoskeletal: see HPI Skin: no symptoms reported Psychiatric/Neurological: See HPI Past Uthdtsr-Olvlsr-Sqtrit Hx Immunizations Up To Date Tetanus Booster (TDap): Unknown PED Vaccines UTD: No First/Initial COVID19 Vaccinat: NONE Second COVID19 Vaccination Mike: NONE Third COVID19 Vaccination Date: NONE Seasonal Allergies Seasonal Allergies: Yes Past Medical History Surgery/Hospitalization HX: PMH: FIBRO, NEUROPATHY, COPD, HEART PROBLEMS, DEFIB/PACEMAKER, DM Surgeries: Yes (LAP CORNELIUS; C-SPINE FUSION/DISCECTOMY C5-C6 ) Abdominal, Appendectomy, Cardiac, Defibrillator, Eye Surgery, Gallbladder, Hysterectomy, Oophorectomy, Orthopedic, Pacemaker, Tonsillectomy Respiratory: Yes (O2 AT 2L/NC CONTINUOUSLY) Asthma, Pneumonia, Chronic Bronchitis, Sleep Apnea, COPD Currently Using CPAP: No Currently Using BIPAP: No Cardiac: Yes (PACEMAKER/DEFIBRILLATOR;CARDIAC ARREST DURING ENT SURGERY;PSVT/PALPITATIONS) Atrial Fibrillation, Chronic Edema/Swelling, Coronary Artery Disease, High Cholesterol, Hypertension, Irregular Heartbeat Neurological: Yes (PERIPHERAL NEUROPATHY HANDS/FEET; CHRONIC HEADACHES) Headaches /Migraines, Neuropathy, TIA 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 Disorders: No Female 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 Disorders: Denies 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 PAIN) Degenerate Disk Disease, Arthritis, Fibromyalgia, Chronic Back Pain, Fractures Endocrine: Yes Diabetes, Insulin dep, Diabetes, Non-Insulin dep HEENT: Yes (S/P BILATERAL CATARACT SURGERY + YAG PROCEDURE;ENT SURG WITH CARDIAC ARREST) Cataract Loss of Vision: Denies Hearing Impairment: Denies Cancer: No Psychosocial: Yes Anxiety, Depression Integumentary: Yes (NELIA INTERTRIGO) Pruritis Blood Disorders: No Adverse Reaction/Blood Tranf: No Family Medical History Alzheimer's disease 19 FATHER Cardiovascular disease 19 FATHER 19 MOTHER Completed stroke 19 MOTHER Hypertension 19 FATHER 19 MOTHER Myocardial infarction 19 FATHER 19 MOTHER No Family History of: Diabetes mellitus PSH: -T12 KYPHOPLASTY -C5-C6 CERVICAL DISCECTOMY WITH FUSION 04/2018 -LAP CORNELIUS FUNDOPLICATION -EGD'S/ESOPHAGEAL DILATIONS/COLONOSCOPIES/POLYPECTOMIES -PACEMAKER/DEFIBRILLATOR -HYSTERECTOMY/BSO -CHOLECYSTECTOMY -APPENDECTOMY -TONSILLECTOMY -OVARIAN CYST SURGERIES X 4 -CYST FROM BACK REMOVED -ENT SURGERY -BILATERAL CARPAL TUNNEL REPAIR -BILATERAL CATARACT SURGERY + YAG PROCEDURE PMH: -CHRONIC NECK PAIN WITH CERVICAL RADICULOPATHY -RESTLESS LEG SYNDROME -CHRONIC BACK PAIN -T12 COMPRESSION WITH KYPHOPLASTY -HAS HAD POST OP RESPIRATORY FAILURE IN PAST -HAD CARDIAC ARREST WITH ENT SURGERY -CAROTID DISEASE--40-50% STENOSIS BILAT ICA -PAROXYSMAL A FIB--HAS REFUSED ORAL ANTICOAGULANTS -HX OF V-FIB AND BRADYCARDIA--S/P PACEMAKER/DEFIBRILLATOR -08/23/19--CARDIAC CATH--NO SIGNIFICANT CORONARY ARTERY DISEASE, EF 50% ADDITIONALLY, PT HAS HISTORY OF PAROXYSMAL ATRIAL FIBRILLATION, AND HAS REPEATEDLY REFUSED TO TAKE ORAL ANTICOAGULANTS. ALSO HAS HISTORY OF CARDIAC ARREST DURING ENT SURGERY PT ALSO HAS HISTORY OF V-FIB AND BRADYCARDIA AND HAS A PACEMAKER/DEFIBRILLATOR IN PLACE SHE HAS HAD POST OP RESPIRATORY FAILURE IN THE PAST Physical Exam Vital Signs Vital Signs - First Documented 10/19/22 09:14 Temp 36.5 Pulse 64 Resp 18 B/P (MAP) 153/61 (91) Pulse Ox 97 Capillary Refill : Height, Weight, BMI Height: 5'4.00" Weight: 215lbs. 0oz. [id number]; 36.00 BMI Method:Stated General Appearance: WD/WN, no apparent distress Neck: full range of motion, supple Respiratory: lungs clear, normal breath sounds Gastrointestinal: non tender, soft Extremities: normal range of motion, non-tender Psychiatric: alert [place] Nerves: normal hearing, normal speech Coordination/Gait: normal finger to nose Motor/Sensory: no motor deficit, no sensory deficit Skin: normal color, warm/dry Procedures/Interventions Date of ETT Placement: Apr 21, 2018 Time of ETT Placement: 174 Progress/Results/Core Measures Results/Orders Lab Results Laboratory Tests Test 10/19/22 09:38 Range/Units White Blood Count 9.4 4.3-11.0 10^3/uL Red Blood Count 4.65 3.80-5.11 10^6/uL Hemoglobin 14.0 11.5-16.0 g/dL Hematocrit 43 35-52 % Mean Corpuscular Volume 93 80-99 fL Mean Corpuscular Hemoglobin 30 25-34 pg Mean Corpuscular Hemoglobin Concent 33 32-36 g/dL Red Cell Distribution Width 12.7 10.0-14.5 % Platelet Count 282 130-400 10^3/uL Mean Platelet Volume 10.1 9.0-12.2 fL Immature Granulocyte % (Auto) 2 % Neutrophils (%) (Auto) 75 42-75 % Lymphocytes (%) (Auto) 16 12-44 % Monocytes (%) (Auto) 5 0-12 % Eosinophils (%) (Auto) 2 0-10 % Basophils (%) (Auto) 1 0-10 % Neutrophils # (Auto) 7.0 1.8-7.8 10^3/uL Lymphocytes # (Auto) 1.5 1.0-4.0 10^3/uL Monocytes # (Auto) 0.5 0.0-1.0 10^3/uL Eosinophils # (Auto) 0.2 0.0-0.3 10^3/uL Basophils # (Auto) 0.1 0.0-0.1 10^3/uL Immature Granulocyte # (Auto) 0.1 0.0-0.1 10^3/uL Sodium Level 140 135-145 MMOL/L Potassium Level 3.9 3.6-5.0 MMOL/L Chloride Level 105 98-107 MMOL/L Carbon Dioxide Level 25 21-32 MMOL/L Anion Gap 10 5-14 MMOL/L Blood Urea Nitrogen 14 7-18 MG/DL Creatinine 0.78 0.60-1.30 MG/DL Estimat Glomerular Filtration Rate 79 BUN/Creatinine Ratio 18 Glucose Level 233 H 70-105 MG/DL Calcium Level 9.2 8.5-10.1 MG/DL Corrected Calcium 9.3 8.5-10.1 MG/DL Total Bilirubin 0.3 0.1-1.0 MG/DL Aspartate Amino Transf (AST/SGOT) 14 5-34 U/L Alanine Aminotransferase (ALT/SGPT) < 6 0-55 U/L Alkaline Phosphatase 110 40-136 U/L Total Protein 7.1 6.4-8.2 GM/DL Albumin 3.9 3.2-4.5 GM/DL My Orders Orders - VARGASAYLINPARMJIT L DO Cbc With Automated Diff (10/19/22 09:28) Comprehensive Metabolic Panel (10/19/22 09:28) Ua Culture If Indicated (10/19/22 09:28) Metoclopramide Injection (Metoclopramide (10/19/22 09:28) Ns Iv 1000 Ml (Sodium Chloride 0.9%) (10/19/22 09:28) Diphenhydramine Injection (Diphenhydram (10/19/22 09:28) Vital Signs/I&O 10/19/22 09:14 Temp 36.5 Pulse 64 Resp 18 B/P (MAP) 153/61 (91) Pulse Ox 97 Progress Progress Note : Progress Note Patient's labs were reviewed and interpreted by me. Patient had no acute fin dings on her labs. Patient's headache is longstanding and she is currently being treated by a neurologist. Her symptoms did improve with IV fluids, Benadryl, Reglan and Toradol. This time since this is a chronic issue with no acute changes there is no further indications for emergency room work-up. She needs to continue to follow-up with her neurologist and primary care provider. Patient is stable and will be discharged home Departure Impression Primary Impression: Cephalgia Qualified Codes: R51.9 - Headache, unspecified; G89.29 - Other chronic pain Disposition: 01 HOME, SELF-CARE Condition: Stable Departure-Patient Inst. Referrals: NANNETTE REVELES DO (PCP/Family) Primary Care Physician Patient Instructions: Headache, Adult (DC) Add. Discharge Instructions: Please follow-up with your neurologist for further evaluation and to review your prior imaging. Follow-up with your primary care provider for further treatment options if headache continues to return All discharge instructions reviewed with patient and/or family. Voiced understanding. PARMJIT VARGAS DO Oct 19, 2022 09:17
[2022-10-19] MEDS ORDERED: NS IV 1000 ML 1,000 ML IV STA (09:28)
[2022-10-19] MEDS ORDERED: METOCLOPRAMIDE INJ 10 MG/2 ML IVP STA (09:28)
[2022-10-19] MEDS ORDERED: diphenhydrAMINE INJ 50 MG/ML VIAL IV STA (09:28)
[2022-10-19 09:44] LABS: BASOPHILS # (AUTO) 0.1 10^3/uL (0.0-0.1); BASOPHILS % (AUTO) 1 % (0-10); EOSINOPHILS # (AUTO) 0.2 10^3/uL (0.0-0.3); EOSINOPHILS % (AUTO) 2 % (0-10); HEMATOCRIT 43 % (35-52); LYMPHOCYTES # (AUTO) 1.5 10^3/uL (1.0-4.0); LYMPHOCYTES % (AUTO) 16 % (12-44); MEAN CORPUSCULAR HEMOGLOBIN 30 pg (25-34); MEAN CORPUSCULAR HGB CONC 33 g/dL (32-36); MEAN CORPUSCULAR VOLUME 93 fL (80-99); MEAN PLATELET VOLUME 10.1 fL (9.0-12.2); MONOCYTES # (AUTO) 0.5 10^3/uL (0.0-1.0); MONOCYTES % (AUTO) 5 % (0-12); NEUTROPHILS % (AUTO) 75 % (42-75); PLATELET COUNT 282 10^3/uL (130-400); WHITE BLOOD COUNT 9.4 10^3/uL (4.3-11.0)
[2022-10-19 09:51] LABS: ALBUMIN 3.9 GM/DL (3.2-4.5)
[2022-10-19 09:52] LABS: CHLORIDE 105 MMOL/L (98-107); POTASSIUM 3.9 MMOL/L (3.6-5.0); SODIUM 140 MMOL/L (135-145)
[2022-10-19 09:53] LABS: CALCIUM 9.2 MG/DL (8.5-10.1)
[2022-10-19 09:54] LABS: GLUCOSE 233 MG/DL (70-105); TOTAL PROTEIN 7.1 GM/DL (6.4-8.2)
[2022-10-19 09:55] LABS: CARBON DIOXIDE 25 MMOL/L (21-32)
[2022-10-19 09:56] LABS: BILIRUBIN,TOTAL 0.3 MG/DL (0.1-1.0)
[2022-10-19 09:57] LABS: ALKALINE PHOSPHATASE 110 U/L (40-136)
[2022-10-19 09:58] LABS: CREATININE SERUM 0.78 MG/DL (0.60-1.30); GFR ESTIMATED 79
[2022-10-19 09:59] LABS: BUN/CREATININE RATIO 18
[2022-10-19 10:00] LABS: ALANINE AMINOTRANSFERASE < 6 U/L (0-55)
[2022-10-19 10:30] VITALS: BP 149/89
== END 2022-10-19 10:40 | disposition home or self-care (01) ==
LOC: EDUNIT# 09:01 → ER 09:03
DX: R51.9 Headache, unspecified (principal); E11.42 Type 2 diabetes mellitus with diabetic polyneuropathy; Z79.4 Long term (current) use of insulin; Z86.69 Personal history of other diseases of the nervous system and sense organs; Z28.310 Unvaccinated for COVID-19
CPT/HCPCS: 36415; 80053; 85025

== ENCOUNTER 2022-10-31 09:02 | Outpatient (RCR) | payer MEDICARE, MEDICAID ==
[~2022-10-31 09:02] MED LIST changes: +ROPI2TAB52 PO; -ROPI2TAB6 PO
== END 2022-11-01 | disposition home or self-care (01) ==
PROVIDERS: ATTEND Psychiatry & Neurology Neurology
DX: R29.6 Repeated falls (principal); G62.9 Polyneuropathy, unspecified; R53.1 Weakness

== ENCOUNTER → 2022-11-09 | Outpatient (CLI) | payer MEDICARE, MEDICAID ==
--- NOTE | 2022-11-09 12:58 | Diagnostic Imaging Report ---
INDICATION: Routine screening. Comparison is made with prior mammogram from 08/24/2019 and 08/27/2018. 2-D and 3-D bilateral screening mammography was performed with CAD. The area of parenchymal asymmetry in the upper outer right breast is stable when compared to the prior exam. There are benign calcifications bilaterally. No mass or malignant-appearing microcalcifications are seen. Axillae are unremarkable. IMPRESSION: No mammographic features suspicious for malignancy are identified. ACR BI-RADS Category 2: Benign findings. Result letter will be mailed to the patient. Note: At least 10% of breast cancer is not imaged by mammography. BI-RADS Category 2 Dictated by: Dictated on workstation # [id number]
== END ==
LOC: RAD 10:10
PROVIDERS: ATTEND Family Medicine
DX: Z12.31 Encounter for screening mammogram for malignant neoplasm of breast (principal)
CPT/HCPCS: 77063; 77067

== ENCOUNTER → 2022-11-13 | Outpatient (CLI) | payer MEDICARE, MEDICAID ==
--- NOTE | 2022-11-13 20:55 | Diagnostic Imaging Report ---
EXAMINATION: Right knee radiographs, 4 views. Left knee radiographs, 4 views. COMPARISON: None. HISTORY: 77-year-old female, bilateral knee pain. FINDINGS: The right and left patella are normally positioned. The joint spaces are well preserved. There is no knee joint effusion. There is degenerative type enthesopathy at both distal quadricep tendon insertions. There is no acute fracture. IMPRESSION: 1. Grossly unremarkable radiographic evaluation of both knees. Dictated by: Dictated on workstation # [id number]
== END ==
LOC: ORTHO 09:14
PROVIDERS: ATTEND Orthopaedic Surgery
DX: M25.561 Pain in right knee (principal); M25.562 Pain in left knee; E66.9 Obesity, unspecified; I10 Essential (primary) hypertension; R09.02 Hypoxemia

== ENCOUNTER 2022-11-14 22:53 | Emergency (ER) | payer MEDICARE, MEDICAID ==
[~2022-11-14] VITALS: Ht 162 cm; Wt 88.4 kg
[~2022-11-14 22:53] MED LIST changes: -BUPR150T24 PO; -CHOL10007 PO; -DILT-27 PO; -INSU100I88 SC; -INSU100V45 SC; -INSU100V45 SQ; -MECL-149 PO; -MEMA5TAB43 PO; -MTP100TCR PO
--- NOTE | 2022-11-14 23:04 | ED General ---
General Stated Complaint: HBS Source of Information: Patient, Old Records History of Present Illness Date Seen by Provider: Nov 14, 2022 Time Seen by Provider: 22:50 Initial Comments PT ARRIVES VIA EMS FROM HOME ( MULTIPLE FAMILY MEMBERS ARRIVE BY POV FROM HOME ) C/O ELEVATED BLOOD SUGAR FOR THE LAST 24 HOURS BLOOD SUGAR 389 TONIGHT, SO CALLED EMS PT NORMALLY TAKES 42 UNITS OF LEVEMIR IN THE MORNING AND 5-10 UNITS OF NOVOLOG IN THE EVENING SHE CHECKED HER SUGAR TONIGHT AND IT WAS HIGH, AND DID NOT KNOW HOW MUCH INSULIN TO TAKE SO SHE DID NOT TAKE ANY TONIGHT AND CALLED EMS BLOOD GLUCOSE 385 FOR EMS NO TX BY EMS PT IS NOT HAVING ANY SYMPTOMS PT GOT A SHORT OF CORTISONE IN HER RIGHT KNEE [address] ODELL. PCP; DR. REVELES Allergies and Home Medications Allergies Coded Allergies: Penicillins (Verified Allergy, Severe, Pt has received Cefepime & Ceftriaxone in the past w/o issue, 01/31/22) SWELLING, RASH, ITCHING vancomycin (Verified Allergy, Severe, Nausea, 01/31/22) COUGH, THROAT FEELING TIGHT Sulfa (Sulfonamide Antibiotics) (Verified Allergy, Mild, 01/31/22) RASH aspirin (Verified Adverse Reaction, Mild, ASPIRIN SENSITIVE, 01/31/22) UPSET STOMACH sumatriptan (Verified Adverse Reaction, Mild, PALPITATIONS, 01/31/22) IRRITABLE Patient Home Medication List Home Medication List Reviewed: Yes Acetaminophen (Acetaminophen) 500 Mg Tablet, 1,000 MG PO Q6H PRN for PAIN-MILD (1-4) OR TEMPATURE Prescribed by: NANNETTE REVELES on 02/05/20 0946 Acetaminophen with Codeine (Acetaminop-Codeine 120-12 mg/5) 5 Ml Solution, 5 ML PO Q6H PRN for cough Prescribed by: JEYSON AUGUSTE on 05/21/21 1350 Apixaban (Eliquis) 5 Mg Tablet, 5 MG PO BID, (Reported) Entered as Reported by: LORIN ZHENG on 01/29/20 1213 Baclofen (Baclofen) 10 Mg Tablet, 20 MG PO BID, (Reported) Entered as Reported by: LORIN ZHENG on 01/29/20 1213 Cefdinir (Cefdinir) 300 Mg Capsule, 300 MG PO BID Prescribed by: JEYSON AUGUSTE on 05/21/21 1349 Cephalexin (Cephalexin) 500 Mg Capsule, 500 MG PO TID, (Reported) Entered as Reported by: TAWANDA DRAKE on 06/21/20 1244 Cholecalciferol (Vitamin D3) (Vitamin D3) 25 Mcg Capsule, 25 MCG PO DAILY, (Reported) Entered as Reported by: LORIN ZHENG on 01/29/20 1213 Clindamycin HCl (Clindamycin HCl) 300 Mg Capsule, 300 MG PO TID Prescribed by: EARNESTINE CAMARGO on 01/28/21 1044 Diltiazem HCl (Cardizem) Unknown Strength Tablet, Unknown Dose PO BID, (Reported) Entered as Reported by: ALFREDA FIGUEROA on 01/31/22 0931 Furosemide (Furosemide) 20 Mg Tablet, 20 MG PO DAILY, (Reported) Entered as Reported by: TAWANDA DRAKE on 06/21/20 1244 Hydrocodone/Acetaminophen (Hydrocodone-Acetamin 5-325 mg) 1 Each Tablet, 1 TAB PO Q4H PRN for PAIN-MODERATE (5-7) Prescribed by: EARNESTINE CAMARGO on 01/28/21 1045 Insulin NPH Human Isophane (Humulin N) 100 Unit/1 Ml Vial, 30 UNIT SQ BID Prescribed by: TAWANDA DRAKE on 06/21/20 1244 Melatonin (Melatonin) 10 Mg Tablet, 10 MG PO, (Reported) Entered as Reported by: LORIN ZHENG on 01/29/20 1213 Metoprolol Tartrate (Metoprolol Tartrate) 50 Mg Tablet, 50 MG PO BID, (Reported) Entered as Reported by: LORIN ZHENG on 01/29/20 1213 Nitrofurantoin Macrocrystal (Nitrofurantoin) 100 Mg Capsule, 100 MG PO BID Prescribed by: PARMJIT VARGAS on 12/14/20 1047 Nitrofurantoin Monohyd/M-Cryst (Macrobid 100 mg Capsule) 100 Mg Capsule, 1 TAB PO BID Prescribed by: PETER ASHLEY on 03/05/22 0057 Nystatin (Nystatin) 15 Gm Cream..g., 0 GM TP TID Prescribed by: NANNETTE REVELES on 02/05/20 0946 Omeprazole (Omeprazole) 40 Mg Capsule.dr, 40 MG PO BID, (Reported) Entered as Reported by: KEI YOUSIF on 03/03/17 1453 Potassium Chloride (Potassium Chloride) 10 Meq Tab.er.prt, 10 MEQ PO DAILY, (Reported) Entered as Reported by: TAWANDA DRAKE on 06/21/20 1244 Pramipexole Di-HCl (Pramipexole Dihydrochloride) 1 Mg Tablet, 1 MG PO 1600, (Reported) Entered as Reported by: MINA MORSE on 06/10/17 1445 Vitamin E Acetate (Vitamin E) 400 Unit Capsule, 400 UNIT PO DAILY, (Reported) Entered as Reported by: TAWANDA DRAKE on 06/21/20 1244 Review of Systems Review of Systems Constitutional: no symptoms reported Past Ugaxxro-Mnxwsg-Pubxfl Hx Immunizations Up To Date Tetanus Booster (TDap): Unknown PED Vaccines UTD: No First/Initial COVID19 Vaccinat: NONE Second COVID19 Vaccination Mike: NONE Third COVID19 Vaccination Date: NONE Seasonal Allergies Seasonal Allergies: Yes Past Medical History Surgery/Hospitalization HX: PMH: FIBRO, NEUROPATHY, COPD, HEART PROBLEMS, DEFIB/PACEMAKER, DM Surgeries: Yes (LAP CORNELIUS; C-SPINE FUSION/DISCECTOMY C5-C6 ) Abdominal, Appendectomy, Cardiac, Defibrillator, Eye Surgery, Gallbladder, Hysterectomy, Oophorectomy, Orthopedic, Pacemaker, Tonsillectomy Respiratory: Yes (O2 AT 2L/NC CONTINUOUSLY) Asthma, Pneumonia, Chronic Bronchitis, Sleep Apnea, COPD Currently Using CPAP: No Currently Using BIPAP: No Cardiac: Yes (PACEMAKER/DEFIBRILLATOR;CARDIAC ARREST DURING ENT SURGERY;PSVT/PALPITATIONS) Atrial Fibrillation, Chronic Edema/Swelling, Coronary Artery Disease, High Cholesterol, Hypertension, Irregular Heartbeat Neurological: Yes (PERIPHERAL NEUROPATHY HANDS/FEET; CHRONIC HEADACHES) Headaches /Migraines, Neuropathy, TIA 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 Disorders: No Female 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 Disorders: Denies 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 PAIN) Degenerate Disk Disease, Arthritis, Fibromyalgia, Chronic Back Pain, Fractures Endocrine: Yes Diabetes, Insulin dep, Diabetes, Non-Insulin dep HEENT: Yes (S/P BILATERAL CATARACT SURGERY + YAG PROCEDURE;ENT SURG WITH CARDIAC ARREST) Cataract Loss of Vision: Denies Hearing Impairment: Denies Cancer: No Psychosocial: Yes Anxiety, Depression Integumentary: Yes (NELIA INTERTRIGO) Pruritis Blood Disorders: No Adverse Reaction/Blood Tranf: No Family Medical History Alzheimer's disease 19 FATHER Cardiovascular disease 19 FATHER 19 MOTHER Completed stroke 19 MOTHER Hypertension 19 FATHER 19 MOTHER Myocardial infarction 19 FATHER 19 MOTHER No Family History of: Diabetes mellitus PSH: -T12 KYPHOPLASTY -C5-C6 CERVICAL DISCECTOMY WITH FUSION 04/2018 -LAP CORNELIUS FUNDOPLICATION -EGD'S/ESOPHAGEAL DILATIONS/COLONOSCOPIES/POLYPECTOMIES -PACEMAKER/DEFIBRILLATOR -HYSTERECTOMY/BSO -CHOLECYSTECTOMY -APPENDECTOMY -TONSILLECTOMY -OVARIAN CYST SURGERIES X 4 -CYST FROM BACK REMOVED -ENT SURGERY -BILATERAL CARPAL TUNNEL REPAIR -BILATERAL CATARACT SURGERY + YAG PROCEDURE PMH: -CHRONIC NECK PAIN WITH CERVICAL RADICULOPATHY -RESTLESS LEG SYNDROME -CHRONIC BACK PAIN -T12 COMPRESSION WITH KYPHOPLASTY -HAS HAD POST OP RESPIRATORY FAILURE IN PAST -HAD CARDIAC ARREST WITH ENT SURGERY -CAROTID DISEASE--40-50% STENOSIS BILAT ICA -PAROXYSMAL A FIB--HAS REFUSED ORAL ANTICOAGULANTS -HX OF V-FIB AND BRADYCARDIA--S/P PACEMAKER/DEFIBRILLATOR -08/23/19--CARDIAC CATH--NO SIGNIFICANT CORONARY ARTERY DISEASE, EF 50% ADDITIONALLY, PT HAS HISTORY OF PAROXYSMAL ATRIAL FIBRILLATION, AND HAS REPEATEDLY REFUSED TO TAKE ORAL ANTICOAGULANTS. ALSO HAS HISTORY OF CARDIAC ARREST DURING ENT SURGERY PT ALSO HAS HISTORY OF V-FIB AND BRADYCARDIA AND HAS A PACEMAKER/DEFIBRILLATOR IN PLACE SHE HAS HAD POST OP RESPIRATORY FAILURE IN THE PAST Physical Exam Vital Signs Vital Signs - First Documented 11/14/22 22:53 Temp 35.8 Pulse 66 Resp 18 B/P (MAP) 147/76 (99) Pulse Ox 96 O2 Delivery Room Air Capillary Refill : Height, Weight, BMI Height: 5'4.00" Weight: 215lbs. 0oz. 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 Norm as Tested Skin: Normal Color, Warm/Dry Focused Exam Lactate Level 11/14/22 01:48: Lactic Acid Level 2.24*H 11/14/22 22:50: Lactic Acid Level 3.67*H Lactic Acid Level Laboratory Tests Test 11/14/22 01:48 11/14/22 22:50 Lactic Acid Level 2.24 MMOL/L (0.50-2.00) *H 3.67 MMOL/L (0.50-2.00) *H Procedures/Interventions Date of ETT Placement: Apr 21, 2018 Time of ETT Placement: 1743 Progress/Results/Core Measures Suspected Sepsis SIRS Temperature: Pulse: Respiratory Rate: Laboratory Tests 11/14/22 22:50: White Blood Count 12.4H Blood Pressure / Mean: 11/14/22 01:48: Lactic Acid Level 2.24*H 11/14/22 22:50: Lactic Acid Level 3.67*H Laboratory Tests 11/14/22 22:50: Creatinine 1.05, Platelet Count 341, Total Bilirubin 0.3 Results/Orders Lab Results Laboratory Tests Test 11/14/22 01:48 11/14/22 22:50 11/14/22 22:58 11/14/22 23:22 Range/Units Lactic Acid Level 2.24 *H 3.67 *H 0.50-2.00 MMOL/L White Blood Count 12.4 H 4.3-11.0 10^3/uL Red Blood Count 4.53 3.80-5.11 10^6/uL Hemoglobin 13.6 11.5-16.0 g/dL Hematocrit 41 35-52 % Mean Corpuscular Volume 91 80-99 fL Mean Corpuscular Hemoglobin 30 25-34 pg Mean Corpuscular Hemoglobin Concent 33 32-36 g/dL Red Cell Distribution Width 12.7 10.0-14.5 % Platelet Count 341 130-400 10^3/uL Mean Platelet Volume 9.7 9.0-12.2 fL Immature Granulocyte % (Auto) 2 % Neutrophils (%) (Auto) 87 H 42-75 % Lymphocytes (%) (Auto) 7 L 12-44 % Monocytes (%) (Auto) 4 0-12 % Eosinophils (%) (Auto) 0 0-10 % Basophils (%) (Auto) 0 0-10 % Neutrophils # (Auto) 10.8 H 1.8-7.8 10^3/uL Lymphocytes # (Auto) 0.9 L 1.0-4.0 10^3/uL Monocytes # (Auto) 0.5 0.0-1.0 10^3/uL Eosinophils # (Auto) 0.0 0.0-0.3 10^3/uL Basophils # (Auto) 0.0 0.0-0.1 10^3/uL Immature Granulocyte # (Auto) 0.2 H 0.0-0.1 10^3/uL Neutrophils % (Manual) 84 % Lymphocytes % (Manual) 8 % Monocytes % (Manual) 3 % Eosinophils % (Manual) 0 % Basophils % (Manual) 0 % Band Neutrophils 3 % Reactive Lymphocytes 2 % Toxic Granulation 1+ Sodium Level 131 L 135-145 MMOL/L Potassium Level 4.3 3.6-5.0 MMOL/L Chloride Level 99 98-107 MMOL/L Carbon Dioxide Level 17 L 21-32 MMOL/L Anion Gap 15 H 5-14 MMOL/L Blood Urea Nitrogen 25 H 7-18 MG/DL Creatinine 1.05 0.60-1.30 MG/DL Estimat Glomerular Filtration Rate 55 BUN/Creatinine Ratio 24 Glucose Level 457 *H 70-105 MG/DL Calcium Level 9.7 8.5-10.1 MG/DL Corrected Calcium 9.5 8.5-10.1 MG/DL Total Bilirubin 0.3 0.1-1.0 MG/DL Aspartate Amino Transf (AST/SGOT) 15 5-34 U/L Alanine Aminotransferase (ALT/SGPT) 18 0-55 U/L Alkaline Phosphatase 123 40-136 U/L Total Protein 7.4 6.4-8.2 GM/DL Albumin 4.3 3.2-4.5 GM/DL Beta-Hydroxybutyrate (Chem panel) 0.14 0.00-0.27 MMOL/L Glucometer 419 *H 70-110 MG/DL Urine Color YELLOW Urine Clarity CLEAR Urine pH 5.5 5-9 Urine Specific [place] 1.015 L 1.016-1.022 Urine Protein NEGATIVE NEGATIVE Urine Glucose (UA) 3+ H NEGATIVE Urine Ketones NEGATIVE NEGATIVE Urine Nitrite NEGATIVE NEGATIVE Urine Bilirubin NEGATIVE NEGATIVE Urine Urobilinogen 0.2 < = 1.0 MG/DL Urine Leukocyte Esterase NEGATIVE NEGATIVE Urine RBC (Auto) NEGATIVE NEGATIVE Urine RBC NONE /HPF Urine WBC NONE /HPF Urine Squamous Epithelial Cells 0-2 /HPF Urine Crystals NONE /LPF Urine Bacteria TRACE /HPF Urine Casts NONE /LPF Urine Mucus NEGATIVE /LPF Urine Culture Indicated NO Test 11/15/22 00:38 11/15/22 02:18 Range/Units Glucometer 221 H 140 H 70-110 MG/DL My Orders Orders - PETER ASHLEY K DO Ed Iv/Invasive Line Start (11/14/22 22:55) Monitor-Rhythm Ecg Trace Only (11/14/22 22:55) Cbc With Automated Diff (11/14/22 22:55) Comprehensive Metabolic Panel (11/14/22 22:55) Lactic Acid Analyzer (11/14/22 22:55) Ua Culture If Indicated (11/14/22 22:55) Ed Iv/Invasive Line Start (11/14/22 22:55) Beta Hydroxybutyrate (11/14/22 22:55) Ed Iv/Invasive Line Start (11/14/22 22:55) Manual Differential (11/14/22 22:50) Insulin (Regular) Per Unit (Insulin (Reg (11/14/22 23:30) Ed Iv/Invasive Line Start (11/14/22 23:30) Ns Iv 1000 Ml (Ns Iv 1000 Ml) (11/14/22 23:30) Ed Iv/Invasive Line Start (11/15/22 00:40) Ns Iv 1000 Ml (Ns Iv 1000 Ml) (11/15/22 00:45) Ns Iv 1000 Ml (Ns Iv 1000 Ml) (11/15/22 00:42) Accucheck Stat ONCE (11/15/22 02:16) Medications Given in ED Current Medications Medications Dose Ordered Sig/Alannah Route Start Time Stop Time Status Last Admin Dose Admin Insulin Human Regular 20 unit ONCE ONCE IV 11/14/22 23:30 11/14/22 23:32 DC 11/14/22 23:40 20 UNIT Vital Signs/I&O 11/14/22 11/14/22 11/15/22 22:53 22:53 02:25 Temp 35.8 Pulse 66 63 Resp 18 20 B/P (MAP) 147/76 (99) 141/70 Pulse Ox 96 95 O2 Delivery Room Air Room Air Room Air Capillary Refill : Progress Note : Progress Note ACCUCHECK 419 ON ARRIVAL HERE GIVEN: -IV FLUIDS -INSULIN LABS: -CBC UNREMARKABLE -CMP NA 131, K 4.3, CO2 17, ANION GAP 15, BUN 25, CR 10.5, GLU 457, -BETA HYDROXYBUTYRATE 0.4 -LACTIC ACID 3.67, REPEAT 2.24 -UA WITH 3+ GLUCOSE, NO KETONES GLUCOSE DOWN TO 140 UNEVENTFUL ER STAY PT HAD NO SYMPTOMS DURING ER STAY VITALS STABLE DISCUSSED TEST RESULTS, ANTICIPATED COURSE, NEED FOR FOLLOW UP AND RETURN PRECAUTIONS REVIEWED PRIOR RECORDS, MULTITUDE OF ER VISITS, ADMITS/H&P'S/CONSULTS/DISCHARGE SUMMARIES, TESTS/PROCEDURES Departure Impression Primary Impression: Hyperglycemia due to diabetes mellitus Additional Impressions: IDDM (insulin dependent diabetes mellitus) History of recent steroid use Disposition: HOME, SELF-CARE Condition: Improved Departure-Patient Inst. Referrals: NANNETTE REVELES DO (PCP/Family) Primary Care Physician Patient Instructions: High Blood Sugar, Adult ED Add. Discharge Instructions: CONTINUE YOUR MEDICATIONS PRESCRIBED FOLLOW UP WITH DR. REVELES NEEDED PETER ASHLEY DO Nov 14, 2022 23:04
[2022-11-14 23:08] LABS: BASOPHILS % (AUTO) 0 % (0-10); EOSINOPHILS % (AUTO) 0 % (0-10); HEMATOCRIT 41 % (35-52); HEMOGLOBIN 13.6 g/dL (11.5-16.0); LYMPHOCYTES # (AUTO) 0.9 10^3/uL (1.0-4.0); LYMPHOCYTES % (AUTO) 7 % (12-44); MEAN CORPUSCULAR HEMOGLOBIN 30 pg (25-34); MEAN CORPUSCULAR HGB CONC 33 g/dL (32-36); MEAN CORPUSCULAR VOLUME 91 fL (80-99); MEAN PLATELET VOLUME 9.7 fL (9.0-12.2); MONOCYTES # (AUTO) 0.5 10^3/uL (0.0-1.0); MONOCYTES % (AUTO) 4 % (0-12); NEUTROPHILS # (AUTO) 10.8 10^3/uL (1.8-7.8); NEUTROPHILS % (AUTO) 87 % (42-75); PLATELET COUNT 341 10^3/uL (130-400); WHITE BLOOD COUNT 12.4 10^3/uL (4.3-11.0)
[2022-11-14 23:18] LABS: ALBUMIN 4.3 GM/DL (3.2-4.5); POTASSIUM 4.3 MMOL/L (3.6-5.0)
[2022-11-14 23:19] LABS: CALCIUM 9.7 MG/DL (8.5-10.1)
[2022-11-14 23:20] LABS: TOTAL PROTEIN 7.4 GM/DL (6.4-8.2)
[2022-11-14 23:22] LABS: BILIRUBIN,TOTAL 0.3 MG/DL (0.1-1.0)
[2022-11-14 23:24] LABS: CREATININE SERUM 1.05 MG/DL (0.60-1.30)
[2022-11-14] MEDS ORDERED: NS IV 1000 ML 1,000 ML IV SCH (23:30)
[2022-11-14] MEDS ORDERED: inSUlin (REGULAR) HUMAN 1 UNIT/0.01 ML (CHARGE PER UNIT) IV ONE (23:30)
[2022-11-14 23:34] LABS: BAND NEUTROPHILS 3 %; BASOPHILS % (MANUAL) 0 %; EOSINOPHILS % (MANUAL) 0 %; LYMPHOCYTES % (MANUAL) 8 %; MONOCYTES % (MANUAL) 3 %; NEUTROPHILS % (MANUAL) 84 %; REACTIVE LYMPHOCYTES 2 %
[2022-11-14 23:35] LABS: CLARITY,URINE CLEAR; COLOR,URINE YELLOW; GLUCOSE, URINE (UA) 3+ (NEGATIVE); KETONES,URINE NEGATIVE (NEGATIVE); NITRITE,URINE NEGATIVE (NEGATIVE); PH,URINE 5.5 (5-9); PROTEIN,URINE NEGATIVE (NEGATIVE)
[2022-11-14 23:35] LABS: TOXIC GRANULATION/VACUOLAZATIO 1+
[2022-11-14 23:36] LABS: BILIRUBIN,URINE NEGATIVE (NEGATIVE); LEUKOCYTE ESTERASE ,URINE NEGATIVE (NEGATIVE)
[2022-11-14 23:39] LABS: BACTERIA,URINE TRACE /HPF; SQUAMOUS EPITHELIAL CELL,UR 0-2 /HPF
[2022-11-15] MEDS ORDERED: NS IV 1000 ML 1,000 ML ONE (00:42)
[2022-11-15] MEDS ORDERED: NS IV 1000 ML 1,000 ML IV SCH (00:45)
[2022-11-15 02:25] VITALS: BP 141/70
[2022-11-16] MEDS ORDERED: MECL-149 PO ×2 (12:33→12:39)
[2022-11-16] MEDS ORDERED: GABA-486 PO ×2 (12:33→12:39)
[2022-11-16] MEDS ORDERED: MEMA5TAB43 PO ×2 (12:33→12:39)
[2022-11-16] MEDS ORDERED: INSU100V45 SC (12:33)
[2022-11-16] MEDS ORDERED: INSU100I88 SC (12:33)
[2022-11-16] MEDS ORDERED: MTP100TCR PO ×2 (12:33→12:39)
[2022-11-16] MEDS ORDERED: DILT-27 PO ×2 (12:33→12:39)
[2022-11-16] MEDS ORDERED: BUPR150T24 PO ×2 (12:33→12:39)
[2022-11-16] MEDS ORDERED: CHOL10007 PO (12:39)
[2022-11-16] MEDS ORDERED: OMEP40CA6 PO (12:39)
[2022-11-16] MEDS ORDERED: INSU100V45 SQ (12:39)
[2022-11-16] MEDS ORDERED: APIX5TAB PO (12:39)
== END 2022-11-15 02:25 | disposition home or self-care (01) ==
LOC: EDUNIT# 22:53 → ER 22:55
DX: E11.65 Type 2 diabetes mellitus with hyperglycemia (principal); E11.42 Type 2 diabetes mellitus with diabetic polyneuropathy; Z79.4 Long term (current) use of insulin; Z28.310 Unvaccinated for COVID-19
CPT/HCPCS: 36415; 80053; 81000; 82010; 82947; 83605; 85007; 85027

== ENCOUNTER → 2022-11-14 | Outpatient (CLI) | payer MEDICARE, MEDICAID ==
[~2022-11-14] MED LIST changes: +BUPR150T24 PO; +CHOL10007 PO; +DILT-27 PO; +INSU100I88 SC; +INSU100V45 SC; +INSU100V45 SQ; +MECL-149 PO; +MEMA5TAB43 PO; +MTP100TCR PO
== END ==
LOC: ORTHO 15:30
PROVIDERS: ATTEND Orthopaedic Surgery
DX: M25.561 Pain in right knee (principal); M25.562 Pain in left knee
CPT/HCPCS: 20610; 99203

== ENCOUNTER 2022-11-15 23:12 | Observation (INO) | payer MEDICARE, MEDICAID ==
[~2022-11-15] VITALS: Ht 160 cm; Wt 95.2 kg
[2022-11-15] MEDS ORDERED: NS IV 1000 ML 1,000 ML IV SCH (23:45)
[2022-11-15 23:52] LABS: ABG BASE EXCESS -3.7 MMOL/L (-2.5-2.5); ABG OXYGEN SATURATION 98 % (94-100); ABG PCO2 36 MMHG (35-45); ABG PH 7.37 (7.37-7.43); ABG PO2 84 MMHG (79-93); ABG TCO2 21.7 MMOL/L (21.0-31.0)
[2022-11-15 23:54] LABS: ALLENS TEST YES-POS; INSPIRED O2 RA; PATIENT TEMP 37; VENTILATOR NO
[2022-11-16 00:04] LABS: BASOPHILS % (AUTO) 0 % (0-10); EOSINOPHILS % (AUTO) 0 % (0-10); HEMATOCRIT 40 % (35-52); LYMPHOCYTES # (AUTO) 1.1 10^3/uL (1.0-4.0); LYMPHOCYTES % (AUTO) 9 % (12-44); MEAN CORPUSCULAR HEMOGLOBIN 30 pg (25-34); MEAN CORPUSCULAR HGB CONC 33 g/dL (32-36); MEAN CORPUSCULAR VOLUME 93 fL (80-99); MEAN PLATELET VOLUME 9.8 fL (9.0-12.2); MONOCYTES # (AUTO) 0.7 10^3/uL (0.0-1.0); MONOCYTES % (AUTO) 6 % (0-12); NEUTROPHILS # (AUTO) 10.3 10^3/uL (1.8-7.8); NEUTROPHILS % (AUTO) 84 % (42-75); PLATELET COUNT 343 10^3/uL (130-400); WHITE BLOOD COUNT 12.3 10^3/uL (4.3-11.0)
[2022-11-16 00:09] LABS: POTASSIUM 4.1 MMOL/L (3.6-5.0)
[2022-11-16 00:10] LABS: CALCIUM 9.2 MG/DL (8.5-10.1)
[2022-11-16 00:12] LABS: TOTAL PROTEIN 6.8 GM/DL (6.4-8.2)
[2022-11-16 00:13] LABS: BILIRUBIN,TOTAL 0.4 MG/DL (0.1-1.0)
[2022-11-16 00:15] LABS: CREATININE SERUM 0.88 MG/DL (0.60-1.30)
--- NOTE | 2022-11-16 00:57 | ED General ---
General Chief Complaint: Glucose Problems Stated Complaint: BLOOD SUGAR 479 Nursing Triage Note: PT TO RM 7 W C/O ELEVATED BLOOD SUGAR SX 2130. PT REPORTS AT 2130 FSBS 369, AT 2215 FSBS 479. PT ADMIN 20 UNITS NOVOLIN BETWEEN FSBS CHECKS. PT REPORTS SHE GOT SHOTS OF BOTOX THIS AM W NEUROLOGIST IN FOR CHRONIC MIGRAINES. PT A&OX4. Allergies and Home Medications Allergies Coded Allergies: Penicillins (Verified Allergy, Severe, Pt has received Cefepime & Ceftriaxone in the past w/o issue, 01/31/22) SWELLING, RASH, ITCHING vancomycin (Verified Allergy, Severe, Nausea, 01/31/22) COUGH, THROAT FEELING TIGHT Sulfa (Sulfonamide Antibiotics) (Verified Allergy, Mild, 01/31/22) RASH aspirin (Verified Adverse Reaction, Mild, ASPIRIN SENSITIVE, 01/31/22) UPSET STOMACH sumatriptan (Verified Adverse Reaction, Mild, PALPITATIONS, 01/31/22) IRRITABLE Patient Home Medication List Acetaminophen (Acetaminophen) 500 Mg Tablet, 1,000 MG PO Q6H PRN for PAIN-MILD (1-4) OR TEMPATURE Prescribed by: NANNETTE REVELES on 02/05/20 0946 Acetaminophen with Codeine (Acetaminop-Codeine 120-12 mg/5) 5 Ml Solution, 5 ML PO Q6H PRN for cough Prescribed by: JEYSON AUGUSTE on 05/21/21 1350 Apixaban (Eliquis) 5 Mg Tablet, 5 MG PO BID, (Reported) Entered as Reported by: LORIN ZHENG on 01/29/20 1213 Baclofen (Baclofen) 10 Mg Tablet, 20 MG PO BID, (Reported) Entered as Reported by: LORIN ZHENG on 01/29/20 1213 Cefdinir (Cefdinir) 300 Mg Capsule, 300 MG PO BID Prescribed by: JEYSON AUGUSTE on 05/21/21 1349 Cephalexin (Cephalexin) 500 Mg Capsule, 500 MG PO TID, (Reported) Entered as Reported by: TAWANDA DRAKE on 06/21/20 1244 Cholecalciferol (Vitamin D3) (Vitamin D3) 25 Mcg Capsule, 25 MCG PO DAILY, (Reported) Entered as Reported by: LORIN ZHENG on 01/29/20 1213 Clindamycin HCl (Clindamycin HCl) 300 Mg Capsule, 300 MG PO TID Prescribed by: EARNESTINE CAMARGO on 01/28/21 1044 Diltiazem HCl (Cardizem) Unknown Strength Tablet, Unknown Dose PO BID, (Reported) Entered as Reported by: ALFREDA FIGUEROA on 01/31/22 0931 Furosemide (Furosemide) 20 Mg Tablet, 20 MG PO DAILY, (Reported) Entered as Reported by: TAWANDA DRAKE on 06/21/20 1244 Hydrocodone/Acetaminophen (Hydrocodone-Acetamin 5-325 mg) 1 Each Tablet, 1 TAB PO Q4H PRN for PAIN-MODERATE (5-7) Prescribed by: EARNESTINE CAMARGO on 01/28/21 1045 Insulin NPH Human Isophane (Humulin N) 100 Unit/1 Ml Vial, 30 UNIT SQ BID Prescribed by: TAWANDA DRAKE on 06/21/20 1244 Melatonin (Melatonin) 10 Mg Tablet, 10 MG PO, (Reported) Entered as Reported by: LORIN ZHENG on 01/29/20 1213 Metoprolol Tartrate (Metoprolol Tartrate) 50 Mg Tablet, 50 MG PO BID, (Reported) Entered as Reported by: LORIN ZHENG on 01/29/20 1213 Nitrofurantoin Macrocrystal (Nitrofurantoin) 100 Mg Capsule, 100 MG PO BID Prescribed by: PARMJIT VARGAS on 12/14/20 1047 Nitrofurantoin Monohyd/M-Cryst (Macrobid 100 mg Capsule) 100 Mg Capsule, 1 TAB PO BID Prescribed by: PETER ASHLEY on 03/05/22 0057 Nystatin (Nystatin) 15 Gm Cream..g., 0 GM TP TID Prescribed by: NANNETTE REVELES on 02/05/20 0946 Omeprazole (Omeprazole) 40 Mg Capsule.dr, 40 MG PO BID, (Reported) Entered as Reported by: KEI YOUSIF on 03/03/17 1453 Potassium Chloride (Potassium Chloride) 10 Meq Tab.er.prt, 10 MEQ PO DAILY, (Reported) Entered as Reported by: TAWANDA DRAKE on 06/21/20 1244 Pramipexole Di-HCl (Pramipexole Dihydrochloride) 1 Mg Tablet, 1 MG PO 1600, (Reported) Entered as Reported by: MINA MORSE on 06/10/17 1445 Vitamin E Acetate (Vitamin E) 400 Unit Capsule, 400 UNIT PO DAILY, (Reported) Entered as Reported by: TAWANDA DRAKE on 06/21/20 1244 Past Qyyrnds-Ssblud-Tzhfyp Hx Patient Social History Tobacco Use?: No Use of E-Cig and/or Vaping dev: No Substance use?: No Alcohol Use?: No Immunizations Up To Date Tetanus Booster (TDap): Unknown PED Vaccines UTD: No First/Initial COVID19 Vaccinat: NONE Second COVID19 Vaccination Mike: NONE Third COVID19 Vaccination Date: NONE Seasonal Allergies Seasonal Allergies: Yes Past Medical History Surgery/Hospitalization HX: PMH: FIBRO, NEUROPATHY, COPD, HEART PROBLEMS, DEFIB/PACEMAKER, DM Surgeries: Yes (LAP CORNELIUS; C-SPINE FUSION/DISCECTOMY C5-C6 ) Abdominal, Appendectomy, Cardiac, Defibrillator, Eye Surgery, Gallbladder, Hysterectomy, Oophorectomy, Orthopedic, Pacemaker, Tonsillectomy Respiratory: Yes (O2 AT 2L/NC CONTINUOUSLY) Asthma, Pneumonia, Chronic Bronchitis, Sleep Apnea, COPD Currently Using CPAP: No Currently Using BIPAP: No Cardiac: Yes (PACEMAKER/DEFIBRILLATOR;CARDIAC ARREST DURING ENT SURGERY;PSVT/PALPITATIONS) Atrial Fibrillation, Chronic Edema/Swelling, Coronary Artery Disease, High Cholesterol, Hypertension, Irregular Heartbeat Neurological: Yes (PERIPHERAL NEUROPATHY HANDS/FEET; CHRONIC HEADACHES) Headaches /Migraines, Neuropathy, TIA 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 Disorders: No Female 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 Disorders: Denies 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 PAIN) Degenerate Disk Disease, Arthritis, Fibromyalgia, Chronic Back Pain, Fractures Endocrine: Yes Diabetes, Insulin dep, Diabetes, Non-Insulin dep HEENT: Yes (S/P BILATERAL CATARACT SURGERY + YAG PROCEDURE;ENT SURG WITH CARDIAC ARREST) Cataract Loss of Vision: Denies Hearing Impairment: Denies Cancer: No Psychosocial: Yes Anxiety, Depression Integumentary: Yes (NELIA INTERTRIGO) Pruritis Blood Disorders: No Adverse Reaction/Blood Tranf: No Family Medical History Alzheimer's disease 19 FATHER Cardiovascular disease 19 FATHER 19 MOTHER Completed stroke 19 MOTHER Hypertension 19 FATHER 19 MOTHER Myocardial infarction 19 FATHER 19 MOTHER No Family History of: Diabetes mellitus PSH: -T12 KYPHOPLASTY -C5-C6 CERVICAL DISCECTOMY WITH FUSION 04/2018 -LAP CORNELIUS FUNDOPLICATION -EGD'S/ESOPHAGEAL DILATIONS/COLONOSCOPIES/POLYPECTOMIES -PACEMAKER/DEFIBRILLATOR -HYSTERECTOMY/BSO -CHOLECYSTECTOMY -APPENDECTOMY -TONSILLECTOMY -OVARIAN CYST SURGERIES X 4 -CYST FROM BACK REMOVED -ENT SURGERY -BILATERAL CARPAL TUNNEL REPAIR -BILATERAL CATARACT SURGERY + YAG PROCEDURE PMH: -CHRONIC NECK PAIN WITH CERVICAL RADICULOPATHY -RESTLESS LEG SYNDROME -CHRONIC BACK PAIN -T12 COMPRESSION WITH KYPHOPLASTY -HAS HAD POST OP RESPIRATORY FAILURE IN PAST -HAD CARDIAC ARREST WITH ENT SURGERY -CAROTID DISEASE--40-50% STENOSIS BILAT ICA -PAROXYSMAL A FIB--HAS REFUSED ORAL ANTICOAGULANTS -HX OF V-FIB AND BRADYCARDIA--S/P PACEMAKER/DEFIBRILLATOR -08/23/19--CARDIAC CATH--NO SIGNIFICANT CORONARY ARTERY DISEASE, EF 50% ADDITIONALLY, PT HAS HISTORY OF PAROXYSMAL ATRIAL FIBRILLATION, AND HAS REPEATEDLY REFUSED TO TAKE ORAL ANTICOAGULANTS. ALSO HAS HISTORY OF CARDIAC ARREST DURING ENT SURGERY PT ALSO HAS HISTORY OF V-FIB AND BRADYCARDIA AND HAS A PACEMAKER/DEFIBRILLATOR IN PLACE SHE HAS HAD POST OP RESPIRATORY FAILURE IN THE PAST Physical Exam Vital Signs Vital Signs - First Documented 11/15/22 23:20 Temp 37.0 Pulse 69 Resp 18 B/P (MAP) 143/69 (93) Pulse Ox 97 O2 Delivery Room Air Capillary Refill : Less Than 3 Seconds Height, Weight, BMI Height: 5'4.00" Weight: 215lbs. 0oz. [id number]; 38.00 BMI Method:Stated Focused Exam Lactate Level 11/15/22 00:04: Lactic Acid Level 2.67*H Lactic Acid Level Laboratory Tests Test 11/15/22 00:04 Lactic Acid Level 2.67 MMOL/L (0.50-2.00) *H Procedures/Interventions Date of ETT Placement: Apr 21, 2018 Time of ETT Placement: 1744 Progress/Results/Core Measures Suspected Sepsis SIRS Temperature: Pulse: 69 Respiratory Rate: 18 Laboratory Tests 11/15/22 23:46: White Blood Count 12.3H Blood Pressure 143 /69 Mean: 93 11/15/22 00:04: Lactic Acid Level 2.67*H Laboratory Tests 11/15/22 23:46: Creatinine 0.88, Platelet Count 343, Total Bilirubin 0.4 Results/Orders Lab Results Laboratory Tests Test 11/15/22 00:04 11/15/22 23:41 11/15/22 23:46 Range/Units Lactic Acid Level 2.67 *H 0.50-2.00 MMOL/L Glucometer 342 H 70-110 MG/DL White Blood Count 12.3 H 4.3-11.0 10^3/uL Red Blood Count 4.32 3.80-5.11 10^6/uL Hemoglobin 13.0 11.5-16.0 g/dL Hematocrit 40 35-52 % Mean Corpuscular Volume 93 80-99 fL Mean Corpuscular Hemoglobin 30 25-34 pg Mean Corpuscular Hemoglobin Concent 33 32-36 g/dL Red Cell Distribution Width 13.1 10.0-14.5 % Platelet Count 343 130-400 10^3/uL Mean Platelet Volume 9.8 9.0-12.2 fL Immature Granulocyte % (Auto) 2 % Neutrophils (%) (Auto) 84 H 42-75 % Lymphocytes (%) (Auto) 9 L 12-44 % Monocytes (%) (Auto) 6 0-12 % Eosinophils (%) (Auto) 0 0-10 % Basophils (%) (Auto) 0 0-10 % Neutrophils # (Auto) 10.3 H 1.8-7.8 10^3/uL Lymphocytes # (Auto) 1.1 1.0-4.0 10^3/uL Monocytes # (Auto) 0.7 0.0-1.0 10^3/uL Eosinophils # (Auto) 0.0 0.0-0.3 10^3/uL Basophils # (Auto) 0.0 0.0-0.1 10^3/uL Immature Granulocyte # (Auto) 0.2 H 0.0-0.1 10^3/uL Blood Gas Puncture Site LR Blood Gas Patient Temperature 37 Arterial Blood pH 7.37 7.37-7.43 Arterial Blood Partial Pressure CO2 36 35-45 MMHG Arterial Blood Partial Pressure O2 84 79-93 MMHG Arterial Blood HCO3 21 L 23-27 MMOL/L Arterial Blood Total CO2 21.7 21.0-31.0 MMOL/L Arterial Blood Oxygen Saturation 98 94-100 % Arterial Blood Base Excess -3.7 L -2.5-2.5 MMOL/L Manjit Test YES-POS Blood Gas Ventilator Setting NO Blood Gas Inspired Oxygen RA Sodium Level 135 135-145 MMOL/L Potassium Level 4.1 3.6-5.0 MMOL/L Chloride Level 105 98-107 MMOL/L Carbon Dioxide Level 17 L 21-32 MMOL/L Anion Gap 13 5-14 MMOL/L Blood Urea Nitrogen 24 H 7-18 MG/DL Creatinine 0.88 0.60-1.30 MG/DL Estimat Glomerular Filtration Rate 68 BUN/Creatinine Ratio 27 Glucose Level 350 H 70-105 MG/DL Calcium Level 9.2 8.5-10.1 MG/DL Corrected Calcium 9.2 8.5-10.1 MG/DL Magnesium Level 2.0 1.6-2.4 MG/DL Total Bilirubin 0.4 0.1-1.0 MG/DL Aspartate Amino Transf (AST/SGOT) 14 5-34 U/L Alanine Aminotransferase (ALT/SGPT) 15 0-55 U/L Alkaline Phosphatase 105 40-136 U/L Total Protein 6.8 6.4-8.2 GM/DL Albumin 4.0 3.2-4.5 GM/DL Amylase Level 36 25-125 U/L Lipase 7 L 8-78 U/L Beta-Hydroxybutyrate (Chem panel) 0.12 0.00-0.27 MMOL/L My Orders Orders - PETER ASHLEY DO Ed Iv/Invasive Line Start (11/15/22 23:36) Monitor-Rhythm Ecg Trace Only (11/15/22 23:36) Amylase (11/15/22 23:36) Arterial Blood Gas (11/15/22 23:46) Cbc With Automated Diff (11/15/22:36) Comprehensive Metabolic Panel (11/15/22:36) Lactic Acid Analyzer (11/15/22 23:36) Lipase (11/15/22 23:36) Magnesium (11/15/22 23:36) Ua Culture If Indicated (11/15/22 23:36) Ed Iv/Invasive Line Start (11/15/22 23:36) Ns Iv 1000 Ml (Ns Iv 1000 Ml) (11/15/22 23:45) Beta Hydroxybutyrate (11/15/22 23:36) Hemoglobin A1c (11/15/22 23:36) Arterial Blood Draw - Obtain (11/16/22 ) Vital Signs/I&O 11/15/22 23:20 Temp 37.0 Pulse 69 Resp 18 B/P (MAP) 143/69 (93) Pulse Ox 97 O2 Delivery Room Air Capillary Refill : Less Than 3 Seconds Blood Pressure Mean: 93 Point of Care Testing Finger Stick Blood Glucose: 342 Blood Glucose Action Taken: DR. ASHLEY NOTIFIED Departure Impression Primary Impression: Hyperglycemia due to diabetes mellitus Additional Impression: Diabetes mellitus, insulin dependent (IDDM), uncontrolled Disposition: ADMITTED INPATIENT Condition: Stable Departure-Patient Inst. Referrals: NANNETTE REVELES DO (PCP/Family) Primary Care Physician PETER ASHLEY DO Nov 16, 2022 00:57
[2022-11-16] MEDS ORDERED: inSUlin (REGULAR) HUMAN 1 UNIT/0.01 ML (CHARGE PER UNIT) IV ONE (01:00)
[2022-11-16 01:20] VITALS: BP 146/72
[2022-11-16] MEDS ORDERED: NS IV 1000 ML 1,000 ML IV SCH (01:30)
[2022-11-16] MEDS ORDERED: ONDANSETRON INJECTION 4 MG/2 ML (SDV) IV PRN (01:30)
[2022-11-16] MEDS ORDERED: fentaNYL INJECTION 100 MCG/2 ML VIAL IV PRN (01:45)
[2022-11-16 04:25] VITALS: BP 148/73
[2022-11-16] MEDS: inSUlin ASPART 1 UNIT/0.01 ML (PER UNIT) SC SCH ×2 (05:47→11:57)
[2022-11-16 06:08] LABS: BASOPHILS % (AUTO) 0 % (0-10); EOSINOPHILS % (AUTO) 0 % (0-10); HEMATOCRIT 38 % (35-52); HEMOGLOBIN 12.2 g/dL (11.5-16.0); LYMPHOCYTES # (AUTO) 1.5 10^3/uL (1.0-4.0); LYMPHOCYTES % (AUTO) 13 % (12-44); MEAN CORPUSCULAR HEMOGLOBIN 29 pg (25-34); MEAN CORPUSCULAR HGB CONC 32 g/dL (32-36); MEAN CORPUSCULAR VOLUME 91 fL (80-99); MEAN PLATELET VOLUME 9.5 fL (9.0-12.2); MONOCYTES # (AUTO) 0.8 10^3/uL (0.0-1.0); MONOCYTES % (AUTO) 7 % (0-12); NEUTROPHILS # (AUTO) 9.1 10^3/uL (1.8-7.8); NEUTROPHILS % (AUTO) 78 % (42-75); PLATELET COUNT 297 10^3/uL (130-400); WHITE BLOOD COUNT 11.7 10^3/uL (4.3-11.0)
[2022-11-16 06:27] LABS: CALCIUM 8.8 MG/DL (8.5-10.1); CREATININE SERUM 0.73 MG/DL (0.60-1.30); POTASSIUM 3.9 MMOL/L (3.6-5.0)
[2022-11-16 07:05] VITALS: BP 142/72
[2022-11-16 12:30] VITALS: BP 144/80
[2022-11-16] MEDS ORDERED: INSU100I88 SC (12:33)
[2022-11-16] MEDS ORDERED: BUPR150T24 PO ×2 (12:33→12:39)
[2022-11-16] MEDS ORDERED: INSU100V45 SC (12:33)
[2022-11-16] MEDS ORDERED: MTP100TCR PO ×2 (12:33→12:39)
[2022-11-16] MEDS ORDERED: MEMA5TAB43 PO ×2 (12:33→12:39)
[2022-11-16] MEDS ORDERED: DILT-27 PO ×2 (12:33→12:39)
[2022-11-16] MEDS ORDERED: GABA-486 PO ×2 (12:33→12:39)
[2022-11-16] MEDS ORDERED: MECL-149 PO ×2 (12:33→12:39)
[2022-11-16] MEDS ORDERED: CHOL10007 PO (12:39)
[2022-11-16] MEDS ORDERED: INSU100V45 SQ (12:39)
[2022-11-16] MEDS ORDERED: APIX5TAB PO (12:39)
[2022-11-16] MEDS ORDERED: OMEP40CA6 PO (12:39)
--- NOTE | 2022-11-16 12:48 | Short Stay Summary ---
JAYCEE ANDERSON 11/16/22 1248: History of Present Illness History of Present Illness Reason for visit/HPI 11/16/2022: CC: Hyperglycemia HPI: Diana is a 77 year old female that presented to the ED due to h yperglycemia. Her highest recorded blood sugar was 479. On 11/13 Diana received a steroid injection into her L-Knee. This is the first time she has had a steroid injection in an outpatient setting since being diabetic. On 11/14, Diana came to the ED due to elevated blood sugars, which was corrected and she went home. On 11/15, she went to for Botox injections for migraines and when she got home she checked her blood sugar and it was 359. She returned to the ED and was admitted to the MED/SURG unit on 11/16. When visiting with Diana, her blood sugars have normalized and are at 85. She also has no symptoms of hyperglycemia. She noted that she made a plan with her primary care doctor to increase her insulin prior to any more steroid injections. She takes Levemir 47 units and 10- 20 units of Novolin at nights. She has many chronic conditions: CHF, COPD, Neuropathy, Fibromyalgia, T2DM, A. Fib, Pacemaker, HTN, HLD, and numerous MSK concerns. When visiting with Diana she was alert and able to recount what happened. She lives with her and manages her insulin intake at home. She says that she is feeling better. She denies excess thirst, confusion, or tremors. She notes some pain in the right side of her head (3/10) that mimics her migraines. Patient appears well. Hyperglycemia likely associated with her steroid injection. No other concerns. Date of Admission Nov 16, 2022 at 01:00 Date of Discharge Nov 16, 2022 Time Seen by Provider: 11:30 Attending Physician Nannette Reid DO Admitting Physician Admitting Physician: Ena Crowell DO Attending Physician: Ena Crowell DO Consult Allergies and Home Medications Allergies Coded Allergies: Penicillins (Verified Allergy, Severe, Pt has received Cefepime & Ceftriaxone in the past w/o issue, 01/31/22) SWELLING, RASH, ITCHING vancomycin (Verified Allergy, Severe, Nausea, 01/31/22) COUGH, THROAT FEELING TIGHT Sulfa (Sulfonamide Antibiotics) (Verified Allergy, Mild, 01/31/22) RASH aspirin (Verified Adverse Reaction, Mild, ASPIRIN SENSITIVE, 01/31/22) UPSET STOMACH sumatriptan (Verified Adverse Reaction, Mild, PALPITATIONS, 01/31/22) IRRITABLE Patient Home Medication List Home Medication List Reviewed: Yes Apixaban (Eliquis) 5 Mg Tablet, 5 MG PO BID, (Reported) Entered as Reported by: LORIN ZHENG on 11/16/221238 Last Action: Continued Bupropion HCl (Bupropion Xl) 150 Mg Tab.er.24h, 150 MG PO DAILY, (Reported) Entered as Reported by: LORIN ZHENG on 11/16/221238 Last Action: Edited Cholecalciferol (Vitamin D3) (Vitamin D3) 25 Mcg (1000 Unit) Capsule, 25 MCG PO DAILY, (Reported) Entered as Reported by: LORIN ZHENG on 11/16/221238 Last Action: Converted Diltiazem HCl (Diltiazem 24Hr ER) 120 Mg Cap.er.24h, 120 MG PO BID, (Reported) Entered as Reported by: LORIN ZHENG on 11/16/221238 Last Action: Continued Gabapentin (Gabapentin) 100 Mg Capsule, 100 MG PO TID, (Reported) Entered as Reported by: LORIN ZHENG on 11/16/221238 Last Action: Continued Insulin Detemir (Levemir Flexpen) 100 Unit/Ml (3 Ml) Insuln.pen, 48 UNITS SC DAILY, (Reported) Entered as Reported by: LORIN ZHENG on 11/16/221232 Last Action: Converted Insulin Lispro (Insulin Lispro) 100 Unit/Ml Vial, 5-10 UNIT SQ HS, (Reported) Entered as Reported by: LORIN ZHENG on 11/16/221238 Last Action: Converted Meclizine HCl (Meclizine HCl) 25 Mg Tablet, 25 MG PO TID, (Reported) Entered as Reported by: LORIN ZHENG on 11/16/221238 Last Action: Continued Memantine HCl (Memantine HCl) 5 Mg Tablet, 5 MG PO BID, (Reported) Entered as Reported by: LORIN ZHENG on 11/16/221238 Last Action: Continued Metoprolol Succinate (Metoprolol Succinate) 100 Mg Tab.er.24h, 100 MG PO DAILY, (Reported) Entered as Reported by: LORIN ZHENG on 11/16/22 1239 Last Action: Continued Omeprazole (Omeprazole) 40 Mg Capsule.dr, 40 MG PO BID, (Reported) Entered as Reported by: LORIN ZHENG on 11/16/22 123 Last Action: Converted Discontinued Medications Acetaminophen (Acetaminophen) 500 Mg Tablet, 1,000 MG PO Q6H PRN for PAIN-MILD (1-4) OR TEMPATURE Discontinued Reason: Referral/FU Appt-Addtl Prescribed by: NANNETTE REID on 02/05/20 0946 Last Action: Discontinued Acetaminophen with Codeine (Acetaminop-Codeine 120-12 mg/5) 5 Ml Solution, 5 ML PO Q6H PRN for cough Discontinued Reason: Referral/FU Appt-Addtl Prescribed by: JEYSON AUGUSTE on 05/21/21 1350 Last Action: Discontinued Apixaban (Eliquis) 5 Mg Tablet, 5 MG PO BID, (Reported) Discontinued Reason: Referral/FU Appt-Addtl Entered as Reported by: LORIN ZHENG on 01/29/20 1213 Last Action: Discontinued Baclofen (Baclofen) 10 Mg Tablet, 20 MG PO BID, (Reported) Discontinued Reason: Referral/FU Appt-Addtl Entered as Reported by: LORIN ZHENG on 01/29/20 1213 Last Action: Discontinued Bupropion HCl (Bupropion Xl) 150 Mg Tab.er.24h, 150 MG PO DAILY, (Reported) Discontinued Reason: Referral/FU Appt-Addtl Entered as Reported by: LORIN ZHENG on 11/16/22 1233 Last Action: Discontinued Cefdinir (Cefdinir) 300 Mg Capsule, 300 MG PO BID Discontinued Reason: Referral/FU Appt-Addtl Prescribed by: JEYSON AUGUSTE on 05/21/21 1349 Last Action: Discontinued Cephalexin (Cephalexin) 500 Mg Capsule, 500 MG PO TID, (Reported) Discontinued Reason: Referral/FU Appt-Addtl Entered as Reported by: TAWANDA DRAKE on 06/21/20 1244 Last Action: Discontinued Cholecalciferol (Vitamin D3) (Vitamin D3) 25 Mcg Capsule, 25 MCG PO DAILY, (Reported) Discontinued Reason: Referral/FU Appt-Addtl Entered as Reported by: LORIN ZHENG on 01/29/20 1213 Last Action: Discontinued Clindamycin HCl (Clindamycin HCl) 300 Mg Capsule, 300 MG PO TID Discontinued Reason: Referral/FU Appt-Addtl Prescribed by: EARNESTINE CAMARGO on 01/28/21 1044 Last Action: Discontinued Diltiazem HCl (Cardizem) Unknown Strength Tablet, Unknown Dose PO BID, (Reported) Discontinued Reason: Referral/FU Appt-Addtl Entered as Reported by: ALFREDA FIGUEROA on 01/31/22 0931 Last Action: Discontinued Diltiazem HCl (Diltiazem 24Hr ER) 120 Mg Cap.er.24h, 120 MG PO BID, (Reported) Discontinued Reason: Referral/FU Appt-Addtl Entered as Reported by: LOIRN ZHENG on 11/16/22 123 Last Action: Discontinued Furosemide (Furosemide) 20 Mg Tablet, 20 MG PO DAILY, (Reported) Discontinued Reason: Referral/FU Appt-Addtl Entered as Reported by: TAWANDA DRAKE on 06/21/20 124 Last Action: Discontinued Gabapentin (Gabapentin) 100 Mg Capsule, 100 MG PO TID, (Reported) Discontinued Reason: Referral/FU Appt-Addtl Entered as Reported by: LORIN ZHENG on 11/16/22 123 Last Action: Discontinued Hydrocodone/Acetaminophen (Hydrocodone-Acetamin 5-325 mg) 1 Each Tablet, 1 TAB PO Q4H PRN for PAIN-MODERATE (5-7) Discontinued Reason: Referral/FU Appt-Addtl Prescribed by: EARNESTINE CAMARGO on 01/28/21 1045 Last Action: Discontinued Insulin Lispro (Insulin Lispro) 100 Unit/Ml Vial, 5-10 UNITS SC HS, (Reported) Discontinued Reason: Referral/FU Appt-Addtl Entered as Reported by: LORIN ZHENG on 11/16/22 123 Last Action: Discontinued Insulin NPH Human Isophane (Humulin N) 100 Unit/1 Ml Vial, 30 UNIT SQ BID Discontinued Reason: Referral/FU Appt-Addtl Prescribed by: TAWANDA DRAKE on 06/21/20 1244 Last Action: Discontinued Meclizine HCl (Meclizine HCl) 25 Mg Tablet, 25 MG PO TID, (Reported) Discontinued Reason: Referral/FU Appt-Addtl Entered as Reported by: LORIN ZHENG on 11/16/22 123 Last Action: Discontinued Melatonin (Melatonin) 10 Mg Tablet, 10 MG PO, (Reported) Discontinued Reason: Referral/FU Appt-Addtl Entered as Reported by: LORIN ZHENG on 01/29/201212 Last Action: Discontinued Memantine HCl (Memantine HCl) 5 Mg Tablet, 5 MG PO BID, (Reported) Discontinued Reason: Referral/FU Appt-Addtl Entered as Reported by: LORIN ZHENG on 11/16/22 123 Last Action: Discontinued Metoprolol Succinate (Metoprolol Succinate) 100 Mg Tab.er.24h, 100 MG PO DAILY, (Reported) Discontinued Reason: Referral/FU Appt-Addtl Entered as Reported by: LORIN ZHENG on 11/16/221232 Last Action: Discontinued Metoprolol Tartrate (Metoprolol Tartrate) 50 Mg Tablet, 50 MG PO BID, (Reported) Discontinued Reason: Referral/FU Appt-Addtl Entered as Reported by: LORIN ZHENG on 01/29/201212 Last Action: Discontinued Nitrofurantoin Macrocrystal (Nitrofurantoin) 100 Mg Capsule, 100 MG PO BID Discontinued Reason: Referral/FU Appt-Addtl Prescribed by: PARMJIT VARGAS on 12/14/20 1047 Last Action: Discontinued Nitrofurantoin Monohyd/M-Cryst (Macrobid 100 mg Capsule) 100 Mg Capsule, 1 TAB PO BID Discontinued Reason: Referral/FU Appt-Addtl Prescribed by: PETER ASHLEY on 03/05/22 0057 Last Action: Discontinued Nystatin (Nystatin) 15 Gm Cream..g., 0 GM TP TID Discontinued Reason: Referral/FU Appt-Addtl Prescribed by: NANNETTE REID on 02/05/20 0946 Last Action: Discontinued Omeprazole (Omeprazole) 40 Mg Capsule.dr, 40 MG PO BID, (Reported) Discontinued Reason: Referral/FU Appt-Addtl Entered as Reported by: KEI YOUSIF on 03/03/17 9058 Last Action: Discontinued Potassium Chloride (Potassium Chloride) 10 Meq Tab.er.prt, 10 MEQ PO DAILY, (Reported) Discontinued Reason: Referral/FU Appt-Addtl Entered as Reported by: TAWANDA DRAKE on 06/21/20 1244 Last Action: Discontinued Pramipexole Di-HCl (Pramipexole Dihydrochloride) 1 Mg Tablet, 1 MG PO 1600, (Reported) Discontinued Reason: Referral/FU Appt-Addtl Entered as Reported by: MINA MORSE on 06/10/17 1445 Last Action: Discontinued Vitamin E Acetate (Vitamin E) 400 Unit Capsule, 400 UNIT PO DAILY, (Reported) Discontinued Reason: Referral/FU Appt-Addtl Entered as Reported by: TAWANDA DRAKE on 06/21/20 1244 Last Action: Discontinued Past Vigeevf-Bcfcef-Qatcrh Hx Patient Social History Marrital Status: Number of Children: 1 Number of living children: 1 Living Status: home with Employed/Student: retired Smoking Status: Never a Smoker 2nd Hand Smoke Exposure: No Recent Hopitalizations: No Alcohol Use?: No Pt feels they are or have been: No Immunizations Up To Date Tetanus Booster (TDap): Unknown Pediatric: No Date of Pneumonia Vaccine: Apr 04, 2018 Date of Influenza Vaccine: Jan 08, 2020 Seasonal Allergies Seasonal Allergies: Yes Surgeries Yes (LAP CORNELIUS; C-SPINE FUSION/DISCECTOMY C5-C6 ) Abdominal, Appendectomy, Cardiac, Defibrillator, Eye Surgery, Gallbladder, Hysterectomy, Oophorectomy, Orthopedic, Pacemaker, Tonsillectomy Respiratory Yes (O2 AT 2L/NC CONTINUOUSLY) COPD Currently Using CPAP: No Currently Using BIPAP: No Cardiovascular Yes (PACEMAKER/DEFIBRILLATOR;CARDIAC ARREST DURING ENT SURGERY;PSVT/PALPI TATIONS) Atrial Fibrillation, Chronic Edema/Swelling, Coronary Artery Disease, High Cholesterol, Hypertension, Irregular Heartbeat Neurological Yes (PERIPHERAL NEUROPATHY HANDS/FEET; CHRONIC HEADACHES) Headaches /Migraines, Neuropathy, TIA 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 System Hx 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 Disorders: No Sexually Transmitted Disease: No Female 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 Disorders: Denies [employer] 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 PAIN) Degenerate Disk Disease, Arthritis, Fibromyalgia, Chronic Back Pain, Fractures Endocrine History of Endocrine Disorders: Yes Endocrine Disorders: Diabetes, Insulin dep HEENT History of HEENT Disorders: Yes (S/P BILATERAL CATARACT SURGERY + YAG PROCEDURE;ENT SURG WITH CARDIAC ARREST) HEENT Disorders: Cataract Loss of Vision: Denies Hearing Impairment: Denies Cancer No Psychosocial History of Psychiatric Problem: Yes Behavioral Health Disorders: Anxiety, Depression Integumentary History of Skin or Integumenta: Yes (NELIA INTERTRIGO) Skin/Integumentary Disorders: Pruritis Blood Transfusions History of Blood Disorders: No Adverse Reaction to a Blood Tr: No Family Medical History Other Significan Family Hx: PSH: -T12 KYPHOPLASTY -C5-C6 CERVICAL DISCECTOMY WITH FUSION 04/2018 -LAP CORNELIUS FUNDOPLICATION -EGD'S/ESOPHAGEAL DILATIONS/COLONOSCOPIES/POLYPECTOMIES -PACEMAKER/DEFIBRILLATOR -HYSTERECTOMY/BSO -CHOLECYSTECTOMY -APPENDECTOMY -TONSILLECTOMY -OVARIAN CYST SURGERIES X 4 -CYST FROM BACK REMOVED -ENT SURGERY -BILATERAL CARPAL TUNNEL REPAIR -BILATERAL CATARACT SURGERY + YAG PROCEDURE PMH: -CHRONIC NECK PAIN WITH CERVICAL RADICULOPATHY -RESTLESS LEG SYNDROME -CHRONIC BACK PAIN -T12 COMPRESSION WITH KYPHOPLASTY -HAS HAD POST OP RESPIRATORY FAILURE IN PAST -HAD CARDIAC ARREST WITH ENT SURGERY -CAROTID DISEASE--40-50% STENOSIS BILAT ICA -PAROXYSMAL A FIB--HAS REFUSED ORAL ANTICOAGULANTS -HX OF V-FIB AND BRADYCARDIA--S/P PACEMAKER/DEFIBRILLATOR -08/23/19--CARDIAC CATH--NO SIGNIFICANT CORONARY ARTERY DISEASE, EF 50% ADDITIONALLY, PT HAS HISTORY OF PAROXYSMAL ATRIAL FIBRILLATION, AND HAS REPEATEDLY REFUSED TO TAKE ORAL ANTICOAGULANTS. ALSO HAS HISTORY OF CARDIAC ARREST DURING ENT SURGERY PT ALSO HAS HISTORY OF V-FIB AND BRADYCARDIA AND HAS A PACEMAKER/DEFIBRILLATOR IN PLACE SHE HAS HAD POST OP RESPIRATORY FAILURE IN THE PAST Family Hx: Alzheimer's disease 19 FATHER Cardiovascular disease 19 FATHER 19 MOTHER Completed stroke 19 MOTHER Hypertension 19 FATHER 19 MOTHER Myocardial infarction 19 FATHER 19 MOTHER No Family History of: Diabetes mellitus Review of Systems Constitutional: no symptoms reported; No dizziness, No fever EENTM: no symptoms reported Respiratory: no symptoms reported; No cough Cardiovascular: no symptoms reported; No palpitations, No syncope Gastrointestinal: no symptoms reported; No abdominal pain, No constipation, No diarrhea Genitourinary: no symptoms reported; No frequency : No Musculoskeletal: back pain, muscle pain Skin: No no symptoms reported, No dryness Psychiatric/Neurological: No Symptoms Reported, Anxiety Physical Exam Vital Signs Vital Signs - First Documented Capillary Refill : Less Than 3 Seconds Height, Weight, BMI Height: 5'4.00" Weight: 215lbs. 0oz. [id number]; 37.18 BMI Method:Stated General Appearance: No Apparent Distress, WD/WN, Obese Eyes: Bilateral Eye Normal Inspection HEENT: Moist Mucous Membranes; No Scleral Icterus (L), No Scleral Icterus (R) Neck: Full Range of Motion, Non Tender, Supple Respiratory: Chest Non Tender, Lungs Clear, Normal Breath Sounds, No Accessory Muscle Use, No Respiratory Distress Cardiovascular: Regular Rate, Rhythm, No Edema, No JVD, No Murmur, Normal Peripheral Pulses Gastrointestinal: Normal Bowel Sounds, No Organomegaly, No Pulsatile Mass, Non Tender, Soft Rectal: Deferred Back: Other (diffuse nevi) Extremity: Normal Capillary Refill, Normal Inspection Neurologic/Psychiatric: Alert, Oriented x3 Skin: Normal Color, Warm/Dry Lymphatic: No Adenopathy Short Stay Diagnosis Discharge Diagnosis-Short Stay Admission Diagnosis: Assessment: -Hyperglycemia -T2DM Final Discharge Diagnosis: Hyperglycemia due to steroid injection Conclusion Labs Laboratory Tests 11/15/22 23:41: Glucometer 342H 11/15/22 23:46: White Blood Count 12.3H, Red Blood Count 4.32, Hemoglobin 13.0, Hematocrit 40, Mean Corpuscular Volume 93, Mean Corpuscular Hemoglobin 30, Mean Corpuscular Hemoglobin Concent 33, Red Cell Distribution Width 13.1, Platelet Count 343, Mean Platelet Volume 9.8, Immature Granulocyte % (Auto) 2, Neutrophils (%) (Auto) 84H, Lymphocytes (%) (Auto) 9L, Monocytes (%) (Auto) 6, Eosinophils (%) (Auto) 0, Basophils (%) (Auto) 0, Neutrophils # (Auto) 10.3H, Lymphocytes # (Auto) 1.1, Monocytes # (Auto) 0.7, Eosinophils # (Auto) 0.0, Basophils # (Auto) 0.0, Immature Granulocyte # (Auto) 0.2H, Blood Gas Puncture Site LR, Blood Gas Patient Temperature 37, Arterial Blood pH 7.37, Arterial Blood Partial Pressure CO2 36, Arterial Blood Partial Pressure O2 84, Arterial Blood HCO3 21L, Arterial Blood Total CO2 21.7, Arterial Blood Oxygen Saturation 98, Arterial Blood Base Excess -3.7L, Manjit Test YES-POS, Blood Gas Ventilator Setting NO, Blood Gas Inspired Oxygen RA, Sodium Level 135, Potassium Level 4.1, Chloride Level 105, Carbon Dioxide Level 17L, Anion Gap 13, Blood Urea Nitrogen 24H, Creatinine 0.88, Estimat Glomerular Filtration Rate 68, BUN/Creatinine Ratio 27, Glucose Level 350H, Calcium Level 9.2, Corrected Calcium 9.2, Magnesium Level 2.0, Total Bilirubin 0.4, Aspartate Amino Transf (AST/SGOT) 14, Alanine Aminotransferase (ALT/SGPT) 15, Alkaline Phosphatase 105, Total Protein 6.8, Albumin 4.0, Amylase Level 36, Lipase 7L, Beta-Hydroxybutyrate (Chem panel) 0.12 11/16/22 05:37: Glucometer 87 11/16/22 05:50: White Blood Count 11.7H, Red Blood Count 4.15, Hemoglobin 12.2, Hematocrit 38, Mean Corpuscular Volume 91, Mean Corpuscular Hemoglobin 29, Mean Corpuscular Hemoglobin Concent 32, Red Cell Distribution Width 12.9, Platelet Count 297, Mean Platelet Volume 9.5, Immature Granulocyte % (Auto) 2, Neutrophils (%) (Auto) 78H, Lymphocytes (%) (Auto) 13, Monocytes (%) (Auto) 7, Eosinophils (%) (Auto) 0, Basophils (%) (Auto) 0, Neutrophils # (Auto) 9.1H, Lymphocytes # (Au to) 1.5, Monocytes # (Auto) 0.8, Eosinophils # (Auto) 0.0, Basophils # (Auto) 0.0, Immature Granulocyte # (Auto) 0.2H, Sodium Level 140, Potassium Level 3.9, Chloride Level 108H, Carbon Dioxide Level 25, Anion Gap 7, Blood Urea Nitrogen 18, Creatinine 0.73, Estimat Glomerular Filtration Rate 85, BUN/Creatinine Ratio 25, Glucose Level 85, Calcium Level 8.8, Lactic Acid Level 1.67 11/16/22 11:44: Glucometer 103 Conclusion/Plan Assessment: * Hyperglycemia due to steroid injection * T2DM * HTN Plan: * Continue home insulin * PCP management for prevention of recurrent steroid induced hyperglycemia ENA CROWELL DO 11/17/22 0645: History of Present Illness History of Present Illness Reason for visit/HPI CC: Hyperglycemia HPI: This is a 77yoWF clinic patient of Dr Reid who has multiple medical issues including diabetes insulin dependent who presents to the ER with high sugar. Apparently she had steroid injection Saturday in her knee and has had a lot of high sugars since that time. Currently it is much better controlled and will DC. Date of Admission 11/16/22 Date of Discharge 11/16/22 Time Seen by Provider: 11:00 Allergies and Home Medications Allergies Coded Allergies: Penicillins (Verified Allergy, Severe, Pt has received Cefepime & Ceftriaxone in the past w/o issue, 01/31/22) SWELLING, RASH, ITCHING vancomycin (Verified Allergy, Severe, Nausea, 01/31/22) COUGH, THROAT FEELING TIGHT Sulfa (Sulfonamide Antibiotics) (Verified Allergy, Mild, 01/31/22) RASH aspirin (Verified Adverse Reaction, Mild, ASPIRIN SENSITIVE, 01/31/22) UPSET STOMACH sumatriptan (Verified Adverse Reaction, Mild, PALPITATIONS, 01/31/22) IRRITABLE Patient Home Medication List Home Medication List Reviewed: Yes Apixaban (Eliquis) 5 Mg Tablet, 5 MG PO BID, (Reported) Entered as Reported by: LORIN ZHENG on 11/16/22 123 Last Action: Continued Bupropion HCl (Bupropion Xl) 150 Mg Tab.er.24h, 150 MG PO DAILY, (Reported) Entered as Reported by: LORIN ZHENG on 11/16/221238 Last Action: Edited Cholecalciferol (Vitamin D3) (Vitamin D3) 25 Mcg (1000 Unit) Capsule, 25 MCG PO DAILY, (Reported) Entered as Reported by: LORIN ZHENG on 11/16/221238 Last Action: Converted Diltiazem HCl (Diltiazem 24Hr ER) 120 Mg Cap.er.24h, 120 MG PO BID, (Reported) Entered as Reported by: LORIN ZHENG on 11/16/221238 Last Action: Continued Gabapentin (Gabapentin) 100 Mg Capsule, 100 MG PO TID, (Reported) Entered as Reported by: LORIN ZHENG on 11/16/221238 Last Action: Continued Insulin Detemir (Levemir Flexpen) 100 Unit/Ml (3 Ml) Insuln.pen, 48 UNITS SC DAILY, (Reported) Entered as Reported by: LORIN ZHENG on 11/16/221232 Last Action: Converted Insulin Lispro (Insulin Lispro) 100 Unit/Ml Vial, 5-10 UNIT SQ HS, (Reported) Entered as Reported by: LORIN ZHENG on 11/16/221238 Last Action: Converted Meclizine HCl (Meclizine HCl) 25 Mg Tablet, 25 MG PO TID, (Reported) Entered as Reported by: LORIN ZHENG on 11/16/221238 Last Action: Continued Memantine HCl (Memantine HCl) 5 Mg Tablet, 5 MG PO BID, (Reported) Entered as Reported by: LORIN ZHENG on 11/16/221238 Last Action: Continued Metoprolol Succinate (Metoprolol Succinate) 100 Mg Tab.er.24h, 100 MG PO DAILY, (Reported) Entered as Reported by: LORIN ZHENG on 11/16/221238 Last Action: Continued Omeprazole (Omeprazole) 40 Mg Capsule.dr, 40 MG PO BID, (Reported) Entered as Reported by: LORIN ZHENG on 11/16/221238 Last Action: Converted Discontinued Medications Acetaminophen (Acetaminophen) 500 Mg Tablet, 1,000 MG PO Q6H PRN for PAIN-MILD (1-4) OR TEMPATURE Discontinued Reason: Referral/FU Appt-Addtl Prescribed by: NANNETTE REID on 02/05/20 0946 Last Action: Discontinued Acetaminophen with Codeine (Acetaminop-Codeine 120-12 mg/5) 5 Ml Solution, 5 ML PO Q6H PRN for cough Discontinued Reason: Referral/FU Appt-Addtl Prescribed by: JEYSON AUGUSTE on 05/21/21 1350 Last Action: Discontinued Apixaban (Eliquis) 5 Mg Tablet, 5 MG PO BID, (Reported) Discontinued Reason: Referral/FU Appt-Addtl Entered as Reported by: LORIN ZHENG on 01/29/20 121 Last Action: Discontinued Baclofen (Baclofen) 10 Mg Tablet, 20 MG PO BID, (Reported) Discontinued Reason: Referral/FU Appt-Addtl Entered as Reported by: LORIN ZHENG on 01/29/201212 Last Action: Discontinued Bupropion HCl (Bupropion Xl) 150 Mg Tab.er.24h, 150 MG PO DAILY, (Reported) Discontinued Reason: Referral/FU Appt-Addtl Entered as Reported by: LORIN ZHENG on 11/16/22 1233 Last Action: Discontinued Cefdinir (Cefdinir) 300 Mg Capsule, 300 MG PO BID Discontinued Reason: Referral/FU Appt-Addtl Prescribed by: JEYSON AUGUSTE on 05/21/21 1349 Last Action: Discontinued Cephalexin (Cephalexin) 500 Mg Capsule, 500 MG PO TID, (Reported) Discontinued Reason: Referral/FU Appt-Addtl Entered as Reported by: TAWANDA DRAKE on 06/21/20 1244 Last Action: Discontinued Cholecalciferol (Vitamin D3) (Vitamin D3) 25 Mcg Capsule, 25 MCG PO DAILY, (Reported) Discontinued Reason: Referral/FU Appt-Addtl Entered as Reported by: LORIN ZHENG on 01/29/20 1213 Last Action: Discontinued Clindamycin HCl (Clindamycin HCl) 300 Mg Capsule, 300 MG PO TID Discontinued Reason: Referral/FU Appt-Addtl Prescribed by: EARNESTINE CAMARGO on 01/28/21 1044 Last Action: Discontinued Diltiazem HCl (Cardizem) Unknown Strength Tablet, Unknown Dose PO BID, (Reported) Discontinued Reason: Referral/FU Appt-Addtl Entered as Reported by: ALFREDA FIGUEROA on 01/31/22 0931 Last Action: Discontinued Diltiazem HCl (Diltiazem 24Hr ER) 120 Mg Cap.er.24h, 120 MG PO BID, (Reported) Discontinued Reason: Referral/FU Appt-Addtl Entered as Reported by: LORIN ZHENG on 11/16/22 1233 Last Action: Discontinued Furosemide (Furosemide) 20 Mg Tablet, 20 MG PO DAILY, (Reported) Discontinued Reason: Referral/FU Appt-Addtl Entered as Reported by: TAWANDA DRAKE on 06/21/20 1244 Last Action: Discontinued Gabapentin (Gabapentin) 100 Mg Capsule, 100 MG PO TID, (Reported) Discontinued Reason: Referral/FU Appt-Addtl Entered as Reported by: LORIN ZHENG on 11/16/22 1233 Last Action: Discontinued Hydrocodone/Acetaminophen (Hydrocodone-Acetamin 5-325 mg) 1 Each Tablet, 1 TAB PO Q4H PRN for PAIN-MODERATE (5-7) Discontinued Reason: Referral/FU Appt-Addtl Prescribed by: EARNESTINE CAMARGO on 01/28/21 1045 Last Action: Discontinued Insulin Lispro (Insulin Lispro) 100 Unit/Ml Vial, 5-10 UNITS SC HS, (Reported) Discontinued Reason: Referral/FU Appt-Addtl Entered as Reported by: LORIN ZHENG on 11/16/22 1233 Last Action: Discontinued Insulin NPH Human Isophane (Humulin N) 100 Unit/1 Ml Vial, 30 UNIT SQ BID Discontinued Reason: Referral/FU Appt-Addtl Prescribed by: TAWANDA DRAKE on 06/21/20 1244 Last Action: Discontinued Meclizine HCl (Meclizine HCl) 25 Mg Tablet, 25 MG PO TID, (Reported) Discontinued Reason: Referral/FU Appt-Addtl Entered as Reported by: LORIN ZHENG on 11/16/22 123 Last Action: Discontinued Melatonin (Melatonin) 10 Mg Tablet, 10 MG PO, (Reported) Discontinued Reason: Referral/FU Appt-Addtl Entered as Reported by: LORIN ZHENG on 01/29/20 1213 Last Action: Discontinued Memantine HCl (Memantine HCl) 5 Mg Tablet, 5 MG PO BID, (Reported) Discontinued Reason: Referral/FU Appt-Addtl Entered as Reported by: LORIN ZHENG on 11/16/22 123 Last Action: Discontinued Metoprolol Succinate (Metoprolol Succinate) 100 Mg Tab.er.24h, 100 MG PO DAILY, (Reported) Discontinued Reason: Referral/FU Appt-Addtl Entered as Reported by: LORIN ZHENG on 11/16/22 123 Last Action: Discontinued Metoprolol Tartrate (Metoprolol Tartrate) 50 Mg Tablet, 50 MG PO BID, (Reported) Discontinued Reason: Referral/FU Appt-Addtl Entered as Reported by: LORIN ZHENG on 01/29/20 121 Last Action: Discontinued Nitrofurantoin Macrocrystal (Nitrofurantoin) 100 Mg Capsule, 100 MG PO BID Discontinued Reason: Referral/FU Appt-Addtl Prescribed by: PARMJIT VARGAS on 12/14/20 1047 Last Action: Discontinued Nitrofurantoin Monohyd/M-Cryst (Macrobid 100 mg Capsule) 100 Mg Capsule, 1 TAB PO BID Discontinued Reason: Referral/FU Appt-Addtl Prescribed by: PETER ASHLEY on 03/05/22 0057 Last Action: Discontinued Nystatin (Nystatin) 15 Gm Cream..g., 0 GM TP TID Discontinued Reason: Referral/FU Appt-Addtl Prescribed by: NANNETTE REID on 02/05/20 0946 Last Action: Discontinued Omeprazole (Omeprazole) 40 Mg Capsule.dr, 40 MG PO BID, (Reported) Discontinued Reason: Referral/FU Appt-Addtl Entered as Reported by: KEI YOUSIF on 03/03/17 1453 Last Action: Discontinued Potassium Chloride (Potassium Chloride) 10 Meq Tab.er.prt, 10 MEQ PO DAILY, (Reported) Discontinued Reason: Referral/FU Appt-Addtl Entered as Reported by: TAWANDA DRAKE on 06/21/20 1244 Last Action: Discontinued Pramipexole Di-HCl (Pramipexole Dihydrochloride) 1 Mg Tablet, 1 MG PO 1600, (Reported) Discontinued Reason: Referral/FU Appt-Addtl Entered as Reported by: MINA MORSE on 06/10/17 1445 Last Action: Discontinued Vitamin E Acetate (Vitamin E) 400 Unit Capsule, 400 UNIT PO DAILY, (Reported) Discontinued Reason: Referral/FU Appt-Addtl Entered as Reported by: TAWANDA DRAKE on 06/21/20 1244 Last Action: Discontinued Past Shmwbdc-Vrrgpx-Jwsvnb Hx Patient Social History Marrital Status: Employed/Student: retired Smoking Status: Never a Smoker Respiratory Sleep Apnea Cardiovascular High Cholesterol, Hypertension Family Medical History Family Hx: Alzheimer's disease 19 FATHER Cardiovascular disease 19 FATHER 19 MOTHER Completed stroke 19 MOTHER Hypertension 19 FATHER 19 MOTHER Myocardial infarction 19 FATHER 19 MOTHER No Family History of: Diabetes mellitus Review of Systems Constitutional: see HPI, malaise, weakness Physical Exam General Appearance: No Apparent Distress, WD/WN, Chronically ill, Obese Respiratory: Lungs Clear, Normal Breath Sounds Cardiovascular: Regular Rate, Rhythm Neurologic/Psychiatric: Alert, Oriented x3 Short Stay Diagnosis Discharge Diagnosis-Short Stay Admission Diagnosis: Hyperglycemia Final Discharge Diagnosis: Hyperglycemia from steroid inkection in knee Dehydration Conclusion Conclusion/Plan DC home Supervisory-Addendum Brief Verification & Attestation Participated in pt care: history, MDM, physical Personally performed: exam, history, MDM, supervision of care Care discussed with: Medical Student Procedures: n/a Results interpretation: Verified all documentation Verification and Attestation of Medical Student E/M Service A medical student performed and documented this service in my presence. I reviewed and verified all information documented by the medical student and made modifications to such information, when appropriate. I personally performed the physical exam and medical decision making. Ena Crowell Nov 17, 2022,06:40 JAYCEE ANDERSON Nov 16, 2022 12:48 ENA CROWELL DO Nov 17, 2022 06:45
[2022-11-16] MEDS ORDERED: MECLIZINE 25 MG TABLET PO SCH (13:00)
[2022-11-16] MEDS ORDERED: GABAPENTIN 100 MG CAPSULE PO SCH (13:00)
--- NOTE | 2022-11-16 13:34 | Physical Therapy Evaluation ---
PT Evaluation-General Medical Diagnosis Admission Date Nov 16, 2022 at 01:00 Medical Diagnosis: uncontrolled DM/lactic acidosis Onset Date: Nov 15, 2022 Therapy Diagnosis Therapy Diagnosis: debility Height/Weight Height (Feet): 5 Height (Inches): 4.00 Weight (Pounds): 215 Weight (Ounces): 0 Precautions Precautions/Isolations: Standard Precautions Referral Physician: Rolanda Reason for Referral: Evaluation/Treatment Medical History Pertinent Medical History: CAD, COPD, DM, Diverticulitis, GERD, [place], Neuropathy Current History ER secondary to elevated blood sugar Reviewed History: Yes Social History Home: Single Level Current Living Status: Spouse Entry Into Home: Stairs With Railing PT Steps Into Home: 3 Prior Prior Level of Function SCALE: Activities may be completed with or without assistive devices. 6-Lqalhszoub-uibzelm completes the activity by him/herself with no assistance from a helper. 5-Set-up or Clean-up Assistance-helper sets up or cleans up; patient completes activity. Alger assists only prior to or following the activity. 4-Supervision or Touching Assistance-helper provides verbal cues and/or to uching/steadying and/or contact guard assistance as patient completes activity. Assistance may be provided throughout the activity or intermittently. 3-Partial/Moderate Assistance-helper does LESS THAN HALF the effort. Alger lifts, holds or supports trunk or limbs, but provides less than half the effort. 2-Substantial/Maximal Assistance-helper does MORE THAN HALF the effort. Alger lifts or holds trunk or limbs and provides more than half the effort. 3-Qzxurfkki-feqrrh does ALL the effort. Patient does none of the effort to complete the activity. Or, the assistance of 2 or more helpers is required for the patient to complete the activity. If activity was not attempted, code reason: 7-Patient Refused. 9-Not Applicable-not attempted and the patient did not perform the activity before the current illness, exacerbation or injury. 10-Not Attempted due to Environmental Limitations-(lack of equipment, weather restraints, etc.). 88-Not Attempted due to Medical Conditions or Safety Concerns. Bed Mobility: 6 Transfers (B,C,W/C): 6 Gait: 6 Stairs: 6 Indoor Mobility (Ambulation): Independent Stairs: Independent Prior Devices Use: Other-see list below Prior Device Use: cane PT Evaluation-Current Subjective Patient agrees to PT. Objective Patient Orientation: Normal For Age ROM/Strength ROM Lower Extremities bilateral LE WFL Strength Lower Extremities 4-/5 grossly bilateral LE all planes Sensory Vision: Functional Hearing: Functional Transfers Sit to Lying (QC): 6 Lying to Sitting/Side of Bed(Q: 6 Sit to Stand (QC): 6 Gait Mode of Locomotion: Walk Anticipated Mode of Locomotion: Walk Walk 10 feet (QC): 6 Walk 50 ft with 2 Turns(QC): 6 Walk 150 ft (QC): 6 Distance: 180' Gait Assistive Device: Cane Small Base Quad Comments/Gait Description functional gait sequence/patient c/o "shaking" during ambulation (wasn't visible to this PT.) Balance Sitting Static: Normal Sitting Dynamic: Normal Standing Static: Normal Standing Dynamic: Normal Assessment/Needs Patient is currently at independent [facility] with all gross motor skills safely and does not require skilled PT intervention at this time. Rehab Potential: Fair PT Plan Treatment/Plan Treatment Plan: Discontinue PT Treatment Duration: Nov 16, 2022 Frequency: 1 time per week Estimated Hrs Per Day: .25 hour per day Patient and/or Family Agrees t: Yes Time Time In: 1255 Time Out: 1312 DATE: Nov 16, 2022 Total Billed Treatment Time: 17 Total Billed Treatment 1 visit EVModC 17 min IRENE NEGRO PT Nov 16, 2022 13:34
[2022-11-16] MEDS ORDERED: dilTIAZem ER 120 MG CAPSULE PO SCH (21:00)
[2022-11-16] MEDS ORDERED: MEMANTINE 5 MG TABLET PO SCH (21:00)
[2022-11-16] MEDS ORDERED: PANTOPRAZOLE 40 MG TABLET PO SCH (21:00)
[2022-11-16] MEDS ORDERED: NON-FORMULARY MEDICATION 1 EA EA (Omeprazole 40 MG) PO SCH (21:00)
[2022-11-16] MEDS ORDERED: APIXABAN 5 MG TABLET PO SCH (21:00)
[2022-11-16] MEDS ORDERED: INSULIN LISPRO SQ SCH (21:00)
[2022-11-17] MEDS ORDERED: VITAMIN D3 25 MCG (1,000 UNITS) TABLET PO SCH (09:00)
[2022-11-17] MEDS ORDERED: inSUlin DETERMIR 1 UNIT/0.01 ML (CHARGE PER UNIT) SQ SCH (09:00)
== END 2022-11-16 14:30 | disposition home or self-care (01) ==
LOC: EDUNIT# 23:12 → ER 23:15 → 4TH 11-16 01:00 → INTOOBSV 11-16 01:00
PROVIDERS: ADMIT Internal Medicine; ATTEND Internal Medicine
DX: E11.65 Type 2 diabetes mellitus with hyperglycemia (principal); T38.0X5A Adverse effect of glucocorticoids and synthetic analogues, initial encounter; I10 Essential (primary) hypertension; Z79.899 Other long term (current) drug therapy
CPT/HCPCS: 36415; 36600; 80048; 80053; 82010; 82150; 82805; 82947; 83036; 83605; 83690; 83735; 85025; 93041

== ENCOUNTER 2022-12-05 06:04 | Outpatient (CLI) | payer MEDICARE, MEDICAID ==
[~2022-12-05] VITALS: Ht 167.6 cm; Wt 96.2 kg
[~2022-12-05 06:04] MED LIST changes: +BUPR150T24 PO; +CHOL10007 PO; +DILT-27 PO; +INSU100I88 SC; +INSU100V45 SC; +INSU100V45 SQ; +MECL-291 PO; +MEMA5TAB43 PO; +MTP100TCR PO
== END 2022-12-05 16:42 | disposition home or self-care (01) ==
LOC: PREOP 06:04
PROVIDERS: ATTEND Surgery
DX: Z01.818 Encounter for other preprocedural examination (principal)

== ENCOUNTER 2022-12-10 10:40 | Emergency (ER) | payer MEDICARE, MEDICAID ==
[~2022-12-10] VITALS: Ht 166 cm; Wt 96.0 kg
[~2022-12-10 10:40] MED LIST changes: -BARIUM for suspension 96% w/w (Vanilla Silq Medium Density) PO ONE; -BARIUM for suspension 98% w/w (Vanilla Silq High Density) PO ONE
[2022-12-10] MEDS ORDERED: CLIN-144 PO (11:54)
--- NOTE | 2022-12-10 11:55 | ED GU-Female ---
General Chief Complaint: - 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 Stated Complaint: INFECTION IN PRIVATE PARTS | BLOOD IN URINE Nursing Triage Note: PT STATES SHE HAS 2 GROTHS IN HER GENITAL AREA, FIRST NOTICED IT LAST SATURDAY Source: patient Exam Limitations: no limitations History of Present Illness Date Seen by Provider: Dec 10, 2022 Time Seen by Provider: 11:50 Initial Comments Patient is a 77-year-old female who presents to ED with vaginal pain and a pote ntial developing abscess. Started having pain over the weekend. Pain for 2 or 3 days. Pain is described as sharp worse when she stands or palpates the abscess. She noted the abscess yesterday. She noted a small pea-sized lump and noted some bright red tinge in her depends. She states the size has stayed the same. She denies of any specific injury. She denies any vaginal discharge, pain with urination, frequent urination, fever, chills, nausea, vomiting, diarrhea. She denies history of similar type symptoms in the past. Allergies and Home Medications Allergies Coded Allergies: Penicillins (Verified Allergy, Severe, Pt has received Cefepime & Ceftriaxone in the past w/o issue, 01/31/22) SWELLING, RASH, ITCHING vancomycin (Verified Allergy, Severe, Nausea, 01/31/22) COUGH, THROAT FEELING TIGHT Sulfa (Sulfonamide Antibiotics) (Verified Allergy, Mild, 01/31/22) RASH aspirin (Verified Adverse Reaction, Mild, ASPIRIN SENSITIVE, 01/31/22) UPSET STOMACH sumatriptan (Verified Adverse Reaction, Mild, PALPITATIONS, 01/31/22) IRRITABLE Patient Home Medication List Home Medication List Reviewed: Yes Apixaban (Eliquis) 5 Mg Tablet, 5 MG PO BID, (Reported) Entered as Reported by: LORIN ZHENG on 11/16/22 1239 Bupropion HCl (Bupropion Xl) 150 Mg Tab.er.24h, 150 MG PO DAILY, (Reported) Entered as Reported by: LORIN ZHENG on 11/16/22 1239 Clindamycin HCl (Clindamycin HCl) 300 Mg Capsule, 300 MG PO TID Prescribed by: ROMA KC on 12/10/22 1154 Diltiazem HCl (Diltiazem 24Hr ER) 120 Mg Cap.er.24h, 120 MG PO BID, (Reported) Entered as Reported by: LORIN HZENG on 11/16/22 1239 Gabapentin (Gabapentin) 100 Mg Capsule, 100 MG PO TID, (Reported) Entered as Reported by: LORIN ZHENG on 11/16/22 1239 Insulin Detemir (Levemir Flexpen) 100 Unit/Ml (3 Ml) Insuln.pen, 48 UNITS SC DAILY, (Reported) Entered as Reported by: LORIN ZHENG on 11/16/22 1233 Insulin Lispro (Insulin Lispro) 100 Unit/Ml Vial, 5-10 UNIT SQ HS, (Reported) Entered as Reported by: LORIN ZHENG on 11/16/22 1239 Meclizine HCl (Meclizine HCl) 25 Mg Tablet, 25 MG PO TID, (Reported) Entered as Reported by: LORIN ZHENG on 11/16/22 123 Memantine HCl (Memantine HCl) 5 Mg Tablet, 5 MG PO BID, (Reported) Entered as Reported by: LORIN ZHENG on 11/16/22 123 Metoprolol Succinate (Metoprolol Succinate) 100 Mg Tab.er.24h, 100 MG PO DAILY, (Reported) Entered as Reported by: LORIN ZHENG on 11/16/22 1239 Omeprazole (Omeprazole) 40 Mg Capsule.dr, 40 MG PO BID, (Reported) Entered as Reported by: LORIN ZHENG on 11/16/22 123 Discontinued Medications Cholecalciferol (Vitamin D3) (Vitamin D3) 25 Mcg (1000 Unit) Capsule, 25 MCG PO DAILY, (Reported) Discontinued Reason: No Longer Taking Entered as Reported by: LORIN ZHENG on 11/16/22 1239 Review of Systems Review of Systems Constitutional: No chills, No diaphoresis, No malaise EENTM: No ear pain Respiratory: No cough, No dyspnea on exertion Cardiovascular: No chest pain Gastrointestinal: No abdominal pain, No diarrhea, No nausea, No vomiting Genitourinary: denies burning, denies discharge, denies dysuria, denies frequency; other (vaginal abscess) Musculoskeletal: No back pain, No joint pain Skin: change in color All Other Systemes Reviewed Negative Unless Noted: Yes Past Ukohtwu-Qowvra-Bafxzj Hx Patient Social History Tobacco Use?: No Use of E-Cig and/or Vaping dev: No Substance use?: No Alcohol Use?: No Pt feels they are or have been: No Immunizations Up To Date Tetanus Booster (TDap): Unknown PED Vaccines UTD: No First/Initial COVID19 Vaccinat: NONE Second COVID19 Vaccination Mike: NONE Third COVID19 Vaccination Date: NONE Seasonal Allergies Seasonal Allergies: Yes Past Medical History Surgery/Hospitalization HX: PMH: FIBRO, NEUROPATHY, COPD, HEART PROBLEMS, DEFIB/PACEMAKER, DM Surgeries: Yes (LAP CORNELIUS; C-SPINE FUSION/DISCECTOMY C5-C6 ) Abdominal, Appendectomy, Cardiac, Defibrillator, Eye Surgery, Gallbladder, Hysterectomy, Oophorectomy, Orthopedic, Pacemaker, Tonsillectomy Respiratory: Yes (O2 AT 2L/NC CONTINUOUSLY) Asthma, Pneumonia, Chronic Bronchitis, Sleep Apnea, COPD Currently Using CPAP: No Currently Using BIPAP: No Cardiac: Yes (PACEMAKER/DEFIBRILLATOR;CARDIAC ARREST DURING ENT S URGERY;PSVT/PALPITATIONS) High Cholesterol, Hypertension Neurological: Yes (PERIPHERAL NEUROPATHY HANDS/FEET; CHRONIC HEADACHES) Headaches /Migraines, Neuropathy, TIA 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 Disorders: No Female 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 PAIN) Degenerate Disk Disease, Arthritis, Fibromyalgia, Chronic Back Pain, Fractures Endocrine: Yes Diabetes, Insulin dep HEENT: Yes (S/P BILATERAL CATARACT SURGERY + YAG PROCEDURE;ENT SURG WITH CARDIAC ARREST) Cataract Loss of Vision: Denies Hearing Impairment: Denies Cancer: No Psychosocial: Yes Anxiety, Depression Integumentary: Yes (NELIA INTERTRIGO) Pruritis Blood Disorders: No Adverse Reaction/Blood Tranf: No Family Medical History Alzheimer's disease 19 FATHER Cardiovascular disease 19 FATHER 19 MOTHER Completed stroke 19 MOTHER Hypertension 19 FATHER 19 MOTHER Myocardial infarction 19 FATHER 19 MOTHER No Family History of: Diabetes mellitus PSH: -T12 KYPHOPLASTY -C5-C6 CERVICAL DISCECTOMY WITH FUSION 04/2018 -LAP CORNELIUS FUNDOPLICATION -EGD'S/ESOPHAGEAL DILATIONS/COLONOSCOPIES/POLYPECTOMIES -PACEMAKER/DEFIBRILLATOR -HYSTERECTOMY/BSO -CHOLECYSTECTOMY -APPENDECTOMY -TONSILLECTOMY -OVARIAN CYST SURGERIES X 4 -CYST FROM BACK REMOVED -ENT SURGERY -BILATERAL CARPAL TUNNEL REPAIR -BILATERAL CATARACT SURGERY + YAG PROCEDURE PMH: -CHRONIC NECK PAIN WITH CERVICAL RADICULOPATHY -RESTLESS LEG SYNDROME -CHRONIC BACK PAIN -T12 COMPRESSION WITH KYPHOPLASTY -HAS HAD POST OP RESPIRATORY FAILURE IN PAST -HAD CARDIAC ARREST WITH ENT SURGERY -CAROTID DISEASE--40-50% STENOSIS BILAT ICA -PAROXYSMAL A FIB--HAS REFUSED ORAL ANTICOAGULANTS -HX OF V-FIB AND BRADYCARDIA--S/P PACEMAKER/DEFIBRILLATOR -08/23/19--CARDIAC CATH--NO SIGNIFICANT CORONARY ARTERY DISEASE, EF 50% ADDITIONALLY, PT HAS HISTORY OF PAROXYSMAL ATRIAL FIBRILLATION, AND HAS REPEATEDLY REFUSED TO TAKE ORAL ANTICOAGULANTS. ALSO HAS HISTORY OF CARDIAC ARREST DURING ENT SURGERY PT ALSO HAS HISTORY OF V-FIB AND BRADYCARDIA AND HAS A PACEMAKER/DEFIBRILLATOR IN PLACE SHE HAS HAD POST OP RESPIRATORY FAILURE IN THE PAST Physical Exam Vital Signs Vital Signs - First Documented 12/10/22 11:38 Temp 37.5 Pulse 72 Resp 20 B/P (MAP) 168/91 (116) Pulse Ox 95 O2 Delivery Room Air Capillary Refill : Height, Weight, BMI Height: 5'4.00" Weight: 215lbs. 0oz. 97.339480fm; 34.00 BMI Method:Stated General Appearance: WD/WN HEENT: No PERRL/EOMI, No normal ENT inspection, No TMs normal, No pharynx normal Neck: No non-tender, No full range of motion, No supple Cardiovascular: No regular rate, rhythm, No no edema, No no gallop, No no JVD Respiratory: No chest non-tender, No lungs clear, No normal breath sounds, No no respiratory distress, No no accessory muscle use Gastrointestinal: No normal bowel sounds, No non tender, No soft, No no organomegaly Genital/Rectal: other (Small pea size nodule right above the clitoris. Mild purulent drainage. Removable. No surrounding redness or swelling. 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 Local anesthetic 1 ml of lidocaine 1%. Small amount of purulent drainage. Date of ETT Placement: Apr 21, 2018 Time of ETT Placement: 1743 Progress/Results/Core Measures Suspected Sepsis SIRS Temperature: Pulse: 72 Respiratory Rate: 20 Blood Pressure 168 /91 Mean: 116 Results/Orders My Orders Orders - SHAUNA BOWEN Ua Culture If Indicated (12/10/22 11:36) Vital Signs/I&O 12/10/22 11:38 Temp 37.5 Pulse 72 Resp 20 B/P (MAP) 168/91 (116) Pulse Ox 95 O2 Delivery Room Air Capillary Refill : Blood Pressure Mean: 116 Departure Communication (PCP) Patient has a pea size abscess right above the clitoris. Current drainage on exam. Made a small incision with a 18-gauge needle and drained small amount of purulent drainage. Procedure document note. She has no urinary symptoms. She is afebrile. She is allergic to penicillins and Bactrim which I cannot use Augmentin or Bactrim. The only other choice to help cover cover vaginal source of bacteria is clindamycin. Discussed with patient that clindamycin can somewhat be harsh on the abdomen and resultant secondary infections. Suggest taking probiotics and eating with the antibiotic. If any developing abdominal pain to stop the antibiotic. Discussed topical Neosporin. If increased size redness swelling to return back to ED. Recommend using a warm cloth to help allow drainage. Impression Primary Impression: Abscess of vagina Disposition: HOME, SELF-CARE Condition: Stable Departure-Patient Inst. Decision time for Depature: 11:53 Referrals: NANNETTE REVELES DO (PCP/Family) Primary Care Physician Patient Instructions: ABSCESS Add. Discharge Instructions: If increased pain, redness swelling or size return back to ED. Recommend taking probiotics with the clindamycin. Eat with the clindamycin. All discharge instructions reviewed with patient and/or family. Voiced understanding. Scripts Clindamycin HCl (Clindamycin HCl) 300 Mg Capsule 300 MG PO TID for 7 Days, #21 CAP Prov: SHAUNA BOWEN 12/10/22 SHAUNA BOWEN Dec 10, 2022 11:55
[2022-12-10 12:00] VITALS: BP 168/91
== END 2022-12-10 12:00 | disposition home or self-care (01) ==
LOC: EDUNIT# 10:40 → ER 10:42
DX: N76.0 Acute vaginitis (principal); E11.42 Type 2 diabetes mellitus with diabetic polyneuropathy; J44.9 Chronic obstructive pulmonary disease, unspecified; Z99.81 Dependence on supplemental oxygen; Z88.0 Allergy status to penicillin; Z88.1 Allergy status to other antibiotic agents; Z88.2 Allergy status to sulfonamides; Z28.310 Unvaccinated for COVID-19; Z79.4 Long term (current) use of insulin
CPT/HCPCS: 56405

== ENCOUNTER → 2022-12-10 | Outpatient (CLI) | payer MEDICARE ==
[~2022-12-10] MED LIST changes: +BARIUM for suspension 96% w/w (Vanilla Silq Medium Density) PO ONE; +BARIUM for suspension 98% w/w (Vanilla Silq High Density) PO ONE
--- NOTE | 2022-12-10 12:33 | Diagnostic Imaging Report ---
Indication: This patient has a remote history of an esophageal stricture treated with a dilatation. Recently she has been having recurrence of the prior symptoms and sensation of new reflux. Patient ingested effervescent crystals followed by thick and thin barium and with fluoroscopic interrogation spot radiographs obtained in multiple obliquities both upright and prone. Swallowing was normal. There was no episode of aspiration or airway penetration. The pharyngeal recesses appeared normal. Esophageal distensibility was unremarkable throughout its length and there was no persistent site of luminal stenosis, narrowing or stricture. There is some mild dysmotility with some nonpropulsive mild secondary and tertiary contractions likely mild senescent disease. There was no reflux or hernia elicited despite evocative maneuvers. Stomach appeared normal. Impression: Mild senescent dysmotility. No stricture, mass or mucosal irregularity. No reflux or hernia could be elicited. Dictated by: Dictated on workstation # [id number]
== END ==
LOC: RAD 09:14
PROVIDERS: ATTEND Family Medicine
DX: K22.2 Esophageal obstruction (principal); K21.9 Gastro-esophageal reflux disease without esophagitis
CPT/HCPCS: 74220

== ENCOUNTER 2022-12-26 10:15 | Outpatient (RCR) | payer MEDICARE, MEDICAID | END 2023-01-01 | disposition home or self-care (01) | PROVIDERS: ATTEND Psychiatry & Neurology Neurology | DX: R29.6 Repeated falls (principal) ==

== ENCOUNTER 2023-01-17 09:57 | Outpatient (RCR) | payer MEDICARE, MEDICAID | END 2023-01-18 15:21 | disposition home or self-care (01) | PROVIDERS: ATTEND Psychiatry & Neurology Neurology | DX: R29.6 Repeated falls (principal) ==

== ENCOUNTER → 2023-01-23 | Outpatient (CLI) | payer MEDICARE, MEDICAID ==
--- NOTE | 2023-01-23 09:09 | Diagnostic Imaging Report ---
INDICATION: Left hip pain AP and oblique views of the left hip are obtained and compared with 12/12/2017. No fracture or acute bony abnormality seen. There is mild degenerative change of the left hip joint. IMPRESSION: No acute bony abnormality left hip. Dictated by: Dictated on workstation # [id number]
== END ==
LOC: RAD 08:23
PROVIDERS: ATTEND Family Medicine
DX: M25.552 Pain in left hip (principal)
CPT/HCPCS: 73502